=== PATIENT | male | born 1940 | race Caucasian/White ===

== ENCOUNTER 2022-10-14 09:38 | Outpatient (OUT) | payer MEDICARE, BC, SELFPAY ==
--- NOTE | 2022-10-14 10:02 | P.CN_ITS ---
Consult Note: HPI Data of Consult Patient: known to practice within the last 3 years Consult date: 10/14/22 Requesting Physician: DOMINIC WALLACE NP Primary Care Provider: Non-Staff Physician, MD Consult Narrative Narrative: Patient is here for f/u of chronic low back pain. Also has right ankle pain . Pain today is low lumbar bilat and intermittently radiates to left leg, unchanged pain or sx. He had LESI 03/29 and has continued relief of pain. We discussed ability to repeat the LESI when he feels it needs done.. Denies new sensorimotor or bowel or bladder issues. Denies medication adverse SE. Pain medication regimen assists patient in better ability to complete ADLs. He also has right ankle pain and has been seeing a talent management manager for this. He does have right ankle inversion. We discussed possible brace, but he states talent management manager did not think this would help. We also discussed getting high top shoes with ankle support to avoid falls. cc:: CC: DOMINIC WALLACE NP Review of Systems ROS Status of ROS 10 or more systems reviewed and unremarkable except as noted in history and below Musculoskeletal Reports: back pain Exam Constitutional Documenting provider has reviewed patient's vital signs: yes Common normals: no apparent distress, average body habitus, oriented x3, alert and well nourished General appearance: cooperative, comfortable and well developed Orientation/consciousness: Yes awake, Yes oriented to person, Yes oriented to place and Yes oriented to time Other: walks with cane HENMT Common normals: normocephalic and moist oral mucous membranes Respiratory Common normals: normal respiratory effort, no retractions and no use of a ccessory muscles Effort & inspection: able to speak in complete sentences and symmetric chest movement Back & Pelvis Lumbar spine/lower back: ROM limited, pain with ROM and paraspinal muscle tenderness Other: positive facet load pain bilat lumbar muscle strength 4/5 bilat LE with intact sensation Assessment and Plan Assessment and Plan (1) Lumbar spondylosis: (2) Lumbar radiculopathy: Plan wear shoes with ankle support f/u 3 months
== END 2022-10-14 09:39 | disposition home or self-care (01) ==
LOC: PM 09:39
PROVIDERS: Visit Provider Nurse Practitioner
DX: M47.26 Other spondylosis with radiculopathy, lumbar region (principal)
CPT/HCPCS: G0463

== ENCOUNTER 2023-01-06 09:39 | Outpatient (OUT) | payer MEDICARE, BC, SELFPAY ==
--- NOTE | 2023-01-06 09:59 | PM.CN ---
Consult Note: HPI Data of Consult Patient: known to practice within the last 3 years Requesting Physician: Silvia Kimble NP Primary Care Provider: Non-Staff Physician, Consult Narrative Reason for consult: f/u Narrative: Irineo Mendes a pleasant 82 year old male presents for evaluation and management of chronic low back pain. Pain today 4/10 in low back. Patient has noticed increase in lumbar pain, as well as radicular symptoms and weakness in bilateral legs over the last two months. Patient would like to discuss proceeding with repeat LINDA as these previously provided >50% pain relief and functional improvement for greater than 3 months. cc:: CC: Silvia Kimble NP Review of Systems ROS Status of ROS 10 or more systems reviewed and unremarkable except as noted in history and below Musculoskeletal Reports: back pain Exam Constitutional Documenting provider has reviewed patient's vital signs: yes Common normals: no apparent distress, oriented x3, healthy appearing, alert and well nourished General appearance: cooperative HENMT Common normals: normocephalic, hearing grossly normal bilaterally and moist oral mucous membranes Head and scalp: normocephalic Eye Common normals: PERRL Pupil: PERRL Neck & C-Spine Common normals: full ROM General: normal visual inspection Chest Common normals: inspection of chest normal Respiratory Common normals: normal respiratory effort, no retractions and no use of accessory muscles Back & Pelvis Lumbar spine/lower back: ROM limited Other: pain increased with standing and walking numbness tingling weakness bilateral legs/feet Extremity Common normals: normal to inspection and full ROM Other: BLE edema, fern hose Neuro Common normals: oriented x3, CN's II-XII intact bilaterally, moves all extremities, no focal motor deficits, no sensory deficits noted and deep tendon reflexes 2+ bilaterally Sensorium/orientation: alert Gait (neuro): antalgic and assistive device used cane Motor exam: no movement abnormalities noted and strength abnormal (4/5 BLE) Psych Common normals: mental status grossly normal, thought process normal, cooperative, affect normal, speech normal and activity/motor behavior normal Speech: normal speech Thought process: normal thought process Results Additional Findings Additional findings: I have checked an [place] report on this patient today and there are no aberrancies noted in the prescribing history.?? A drug screen was completed and reviewed within the last year, and if there has not been a drug screen completed we ordered one today to monitor higher risk, state monitored pain medication use. As part of providing excellent, safe, comprehensive care, the following was completed at our patient's visit: 1. A medication reconciliation and review to ensure accurate knowledge of current/active medications, including asking our patients to inform us about any [id number] medications or herbal remedies/nutritional supplements/alternative remedies. 2. A review to specifically ensure our patients have had annual screening for: elevated body mass index (BMI), tobacco use, screening for depression, and screening for unhealthy alcohol use. When screening is concerning, patients are provided with education and the specific recommendation to discuss the concerning health issue and treatment options with their primary care provider. Assessment and Plan Assessment and Plan (1) Lumbar stenosis with neurogenic claudication: (2) Lumbar radiculopathy: Plan bilateral TFESI at L3-4 under fluoroscopy continue current medications f/u 2 weeks after LINDA
== END 2023-01-06 09:40 | disposition home or self-care (01) ==
LOC: PM 09:39
PROVIDERS: Visit Provider Nurse Practitioner
DX: M48.062 Spinal stenosis, lumbar region with neurogenic claudication (principal); M54.16 Radiculopathy, lumbar region
CPT/HCPCS: G0463

== ENCOUNTER 2023-01-10 09:46 | Day surgery (SDC) | payer MEDICARE, BC, SELFPAY ==
[2023-01-10 10:43] VITALS: BP 160/80; PULSE 66; RESP 14; TEMP 36.4; O2SAT 98
[2023-01-10 11:14] VITALS: BP 166/94; PULSE 98; RESP 18; O2SAT 98
[2023-01-10 11:17] VITALS: BP 156/96; PULSE 94; RESP 18; O2SAT 95
[2023-01-10] MEDS: LIDOCAINE HCL 2% PF 100 MG/5 ML VIAL INJ (11:17)
[2023-01-10] MEDS: BUPIVACAINE HCL 0.25% PF 25 MG/10 ML VIAL INJ (11:17)
[2023-01-10] MEDS: IOHEXOL 240 MG/ML - 10 ML VIAL INJ (11:17)
[2023-01-10] MEDS: TRIAMCINOLONE ACETONIDE 40 MG/ML VIAL INJ (11:17)
--- NOTE | 2023-01-10 11:20 | P.ON_ITS ---
Date of procedure: 01/10/23 Pre-op diagnosis: Lumbar stenosis with neurogenic claudication Post-op diagnosis: same as pre-op Procedure: Procedure: Bilateral L3-4 transforaminal epidural steroid injection Medication: Bupivacaine 0.5% 2cc, kenalog 80mg The patient was seen and examined in the preoperative holding area.? Informed consent was obtained and placed on the chart.? Patient was brought to the medical procedure unit and placed in the prone position where a timeout was c ompleted verifying the correct patient, procedure site, position, and planned special equipment using sterile aseptic technique.? Under direct fluoroscopic visualization a 25-gauge Quincke tipped spinal needle was advanced at level left L3-4 to the designated neural foramen where contrast dye was injected to show adequate spread.? There was no evidence of vascular or adverse uptake.? Epidural spread was appreciated.? The above-mentioned injectate was then placed in a 1.5 mL aliquot preceded by negative aspiration.? The needle was removed. The same procedure, at the same level, was completed on the opposite side. ? Patient was taken to the postprocedural recovery area and monitored for an appropriate length of time before found suitable for discharge in the accompaniment of a responsible adult. Anesthesia: Local Surgeon: Diana Price Pathology: none sent Condition: stable Disposition: no change
== END 2023-01-10 11:24 | disposition home or self-care (01) ==
LOC: SURGOUT 09:47
PROVIDERS: Visit Provider Anesthesiology
DX: M48.062 Spinal stenosis, lumbar region with neurogenic claudication (principal)
CPT/HCPCS: 64483; Q9966

== ENCOUNTER 2023-02-16 10:54 | Outpatient (OUT) | payer MEDICARE, BC, SELFPAY ==
--- NOTE | 2023-02-16 11:23 | PM.CN ---
Consult Note: HPI Data of Consult Patient: known to practice within the last 3 years Requesting Physician: Silvia Kimble NP Primary Care Provider: Non-Staff Physician, MD Consult Narrative Reason for consult: f/u Narrative: Irineo Mendes a pleasant 82 year old male presents for evaluation and management of chronic low back pain. Pain today 4/10 in low back. Patient has noticed increase in BLE strength and no radicular symptoms from bilateral L3-4 TFESI. Pain continues to be 4/10 impacting functional ability. cc:: CC: Silvia Kimble NP Review of Systems ROS Status of ROS 10 or more systems reviewed and unremarkable except as noted in history and below Musculoskeletal Reports: back pain PFSH PFSH Medical History CHF (congestive heart failure) ?I50.9 - Heart failure, unspecified (ICD-10) Cataracts, bilateral ?H26.9 - Unspecified cataract (ICD-10) Low back pain ?M54.50 - Low back pain, unspecified (ICD-10) Hypothyroid ?E03.9 - Hypothyroidism, unspecified (ICD-10) Hypercholesterolemia ?E78.00 - Pure hypercholesterolemia, unspecified (ICD-10) Afib ?I48.91 - Unspecified atrial fibrillation (ICD-10) Surgical History History of total knee arthroplasty ?Z96.659 - Presence of unspecified artificial knee joint (ICD-10) History of hip replacement ?Z96.649 - Presence of unspecified artificial hip joint (ICD-10) Previous back surgery ?Z98.890 - Other specified postprocedural states (ICD-10) History of shoulder surgery ?Z98.890 - Other specified postprocedural states (ICD-10) Meds Home Medications and Allergies Home Medications Medication Instructions Recorded Confirmed Type acetaminophen 500 mg oral powder 1,000 mg PO BID PRN pain 01/06/23 01/10/23 History packet (Tylenol Extra Strength) allopurinol 300 mg tablet 300 mg PO DAILY 01/06/23 01/10/23 History apixaban 5 mg tablet (Eliquis) 5 mg PO BID 01/06/23 01/10/23 History atorvastatin 40 mg tablet 40 mg PO DAILY 01/06/23 01/10/23 History bumetanide 1 mg tablet 1 mg PO DAILY 01/06/23 01/10/23 History eszopiclone 3 mg tablet mg 01/06/23 History levothyroxine 150 mcg capsule 150 mcg PO DAILY 01/06/23 01/10/23 History magnesium oxide 400 mg PO DAILY 01/06/23 01/10/23 History oxycodone-acetaminophen 5 mg-325 1 tab PO BID 01/06/23 01/10/23 History mg tablet (Endocet) potassium chloride 20 mEq 20 meq PO DAILY 01/06/23 01/10/23 History tablet,extended release(part/cryst) pramipexole 0.25 mg tablet 0.25 mg PO DAILY 01/06/23 01/10/23 History (Mirapex) trazodone 50 mg tablet 50 mg PO DAILY 01/06/23 01/10/23 History Allergies Allergy/AdvReac Type Severity Reaction Status Date / Time fentanyl [From Duragesic] Allergy Unknown Verified 01/10/23 10:39 indomethacin [From Indocin] Allergy Unknown Verified 01/10/23 10:39 Penicillins Allergy Unknown Verified 01/10/23 10:39 zolpidem [From Ambien] Allergy Verified 01/10/23 10:39 Exam Constitutional Documenting provider has reviewed patient's vital signs: yes Common normals: no apparent distress, oriented x3, healthy appearing, alert and well nourished General appearance: cooperative [facility] Common normals: normocephalic, hearing grossly normal bilaterally and moist oral mucous membranes Head and scalp: normocephalic Eye Common normals: PERRL Pupil: PERRL Neck & C-Spine Common normals: full ROM General: normal visual inspection Chest Common normals: inspection of chest normal Respiratory Common normals: normal respiratory effort, no retractions and no use of accessory muscles Back & Pelvis Lumbar spine/lower back: ROM limited, pain with ROM and straight leg raise negative bilaterally Other: positive facet loading no radicular symptoms sensation intact in BLE 5/5 strength Extremity Common normals: normal to inspection and full ROM Neuro Common normals: oriented x3, CN's II-XII intact bilaterally, moves all extremities, no focal motor deficits, no sensory deficits noted and deep tendon reflexes 2+ bilaterally Sensorium/orientation: alert Motor exam: strength 5/5 throughout and no movement abnormalities noted Psych Common normals: mental status grossly normal, thought process normal, cooperative, affect normal, speech normal and activity/motor behavior normal Speech: normal speech Thought process: normal thought process Assessment and Plan Assessment and Plan (1) Lumbar spondylosis: (2) Lumbar stenosis with neurogenic claudication: Plan bilateral L3-4 L4-5 MBB x2 under fluoroscopy working towards thermal RFA, radicular symptoms resolved at this time continue HEP as tolerated continue current medications f/u after each injection
== END 2023-02-16 10:55 | disposition home or self-care (01) ==
LOC: PM 10:54
PROVIDERS: Visit Provider Nurse Practitioner
DX: M47.816 Spondylosis without myelopathy or radiculopathy, lumbar region (principal); M48.062 Spinal stenosis, lumbar region with neurogenic claudication
CPT/HCPCS: G0463

== ENCOUNTER 2023-03-14 09:12 | Day surgery (SDC) | payer MEDICARE, BC, SELFPAY ==
--- OUTSIDE RECORDS SUMMARY | 2023-03-14 09:18 | XMS_ITS | CCD ---
Author Name Unknown Address [address] [place] [address] Organization [facility] Care Team Providers Care Division Service Manager Name Role Phone Florentino Dontrell W Unavailable Unavailable Rice, Dontrell W Unavailable Unavailable Rice, Dontrell W Unavailable Unavailable NONE, XXXX Unavailable Unavailable Feliciano Ga Unavailable Unavailable Unavailable Feliciano Ga Unavailable DO Feliciano Ga Primary Care Provider TIFFANY Rodarte-Severiano Malone Attending Provider DO Feliciano Ga Attending Provider DO Feliciano Ga Primary Care Provider DO Feliciano Ga Attending Provider MD Victor Manuel Paiz Emergency Provider DO Dharmesh Zavala Admit Provider DO Dharmesh Zavala Attending Provider Shy Mcdonough Other Provider Unavailable DO Meme De La Torre Other Provider MD Mani Dickens Other Provider DO Matheus Rizvi Other Provider [phone] Antonia ANP- Hoa Other Provider DO Vikas Mane Other Provider RIKY Degroot Other Provider MD Raji Ennis Attending Provider [phone] MD Victor Manuel Reynolds Other Provider SanRIKY Coronel Attending Provider Kuns, DO Feliciano Myers Attending Provider Kuns, DO Feliciano Primary Care Provider Kuns, DO Feliciano Myers Attending Provider Kuns, Dr. Feliciano Parker Primary Care Unavaila cb Gomez, Dane San Attending Rula Gomez, Ms. Enedelia San Referring Unavai labfrederic Ga, Dr. Feliciano Parker Primary Care Unavaila cb Gomez, Dane Enedelia Raeganshelia San Attending Rula Gomez, Dane Enedeliadano San Referring Unavai lable Harmeet, Dr. Feliciano Parker Primary Care Unavaila ble Drew, Marv Referring Unavailable Kuncatie, Dr. Feliciano Parker Primary Care Unavaila ble Drew, Marv Attending Unavailable Harmeet, Dr. Feliciano Parker Primary Care Unavaila ble Francisco Javier, Irineo Attending Unavailable Francisco Javier, Irineo Referring Unavailable Harmeet, Dr. Feliciano Parker Primary Care Unavaila ble Francisco Javier, Irineo Attending Unavailable Francisco Javier, Irineo Referring Unavailable Kuncatie, Dr. Feliciano Parker Primary Care Unavaila ble Drew, Marv Attending Unavailable Drew, Marv Attending Unavailable Kuncatie, Dr. Feliciano Parker Primary Care Unavaila ble Drew, Marv Attending Unavailable Harmeet, Dr. Feliciano Parker Primary Care Unavaila ble KOSTA ., DR TROY Haddad Admitting Unavailable BRAMBILA ., DR TROY Haddad Consulting Unavailable BRAMBILA ., DR TROY Haddad Attending Unavailable KUNCatie, DR WIGGINS Primary Care Unavailable BRAMBILA ., DR TROY Haddad Admitting Unavailable BRAMBILA ., DR TROY Haddad Attending Unavailable RODARTE ., MONSERRAT Consulting Unavailable HARMEET, DR WHITTINGTON Primary Care Unavailable BRAMBILA ., DR TROY Haddad Admitting Unavailable BRAMBILA ., DR TROY Haddad Consulting Unavailable BRAMBILA ., DR TROY Haddad Attending Unavailable KUNCatie, DR WHITTINGTON Primary Care Unavailable RODARTE ., MONSERRAT Consulting Unavailable HARMEET, DR WHITTINGTON Consulting Unavailable BRAMBILA ., DR TROY Haddad Admitting Unavailable BRAMBILA ., DR TROY Haddad Consulting Unavailable BRAMBILA ., DR TROY Haddad Attending Unavailable KUNS, DR WHITTINGTON Primary Care Unavailable KUNCatie, DR WHITTINGTON Consulting Unavailable HALKER ., DOMINIC Attending Unavailable HALKER ., DOMINIC Admitting Unavailable KUNCatie, DR WHITTINGTON Primary Care Unavailable KUNS, DR WHITTINGTON Primary Care Unavailable BRAMBILA ., DR TROY Haddad Admitting Unavailable BRAMBILA ., DR TROY Haddad Attending Unavailable RODARTE ., MONSERRAT Consulting Unavailable KUNCatie, DR WHITTINGTON Primary Care Unavailable BRAMBILA ., DR TROY Haddad Attending Unavailable BRAMBILA ., DR TROY Haddad Admitting Unavailable BRAMBILA ., DR TROY Haddad Admitting Unavailable KUNS, DR WHITTINGTON Primary Care Unavailable BRAMBILA ., DR TROY Haddad Attending Unavailable RODARTE ., MONSERRAT Consulting Unavailable KUNS, DR WHITTINGTON Consulting Unavailable BRAMBILA ., DR TROY Haddad Admitting Unavailable BRAMBILA ., DR TROY Haddad Attending Unavailable RODARTE ., MONSERRAT Consulting Unavailable HARMEET, DR WHITTINGTON Primary Care Unavailable EDILMA MANDEL Attending Unavailable TEQUILA, EDILMA Admitting Unavailable RONALD ISRAEL Consulting Unavailable HARMEET, DR WIGGINS Primary Care Unavailable EDILMA MANDEL Consulting Unavailable BRAMBILA ., DR TROY Haddad Admitting Unavailable BRAMBILA ., DR TROY Haddad Consulting Unavailable BRAMBILA ., DR TROY Haddad Attending Unavailable KUNS, DR WHITTINGTON Primary Care Unavailable LAKSHMIPATHY ., NARENDRANATH Admitting Nichelle vailable LAKSHMIPATHY ., NARENDRANATH Consulting Nichelle vailable HARMEET, DR WHITTINGTON Primary Care Unavailable LAKSHMIPATHY ., NARMAMIATH Attending Nichelle vailable HALKER ., DOMINIC Consulting Unavailable BRAMBILA ., DR TROY Haddad Admitting Unavailable BRAMBILA ., DR TROY Haddad Attending Unavailable RODARTE ., MONSERRAT Consulting Unavailable HARMEET, DR WIGGINS Primary Care Unavailable Kuncatie, DO Wiggins Primary Care Provider Kuns, DO Wiggins Attending Provider Kuns, Feliciano Primary Care Unavailable Kuns, Feliciano P Admitting Unavailable KunsFeliciano P Attending Unavailable Kuns, Feliciano Primary Care Unavailable Enedelia Mix Admitting Unavailable Enedelia Mix Attending Unavailable KunFeliciano haddad Attending Unavailable Kuns, Feliciano Admitting Unavailable Kuns, Feliciano Primary Care Unavailable Kuns, Feliciano Primary Care Unavailable Raymon Raji Attending Unavailable Sciaradiane Shy Consulting Unavailable Karen Zavalaer Admitting Unavailabl e Meme De La Torre Consulting Unavailable Mani Dickens Consulting Unavailable Albert Rizvi Consulting UnavailHoa Whitlock Consulting Unavailable Vikas Mane Consulting Unavailable Jen Degroot Consulting Unavailable Victor Manuel Reynolds Consulting Unavailable Monserrat Rodarte Admitting Unavailable Monserrat Rodarte Attending Unavailable Feliciano Ga Primary Care Unavailable Feliciano Ga Primary Care Unavailable Feliciano Ga Attending Unavailable Feliciano Ga Admitting Unavailable Dee TIDWELL, Diana Hubbard Attending Unavailable Allergies Allergy Classification Reported Allergen(s) Allergy Type Date of Onset Reaction(s) Facility (20 sources) fentaNYL; Translations: [fentaNYL] Drug Allergy 11-09-19 20 AOF, loopy , Dizziness [facility] Repository (20 sources) indomethacin; Translations: [Indocin] Drug Allergy Other [facility] Repository (20 sources) penicillin; Translations: [penicillin] Drug Allergy anaphylaxis [facility] Repository (1 source) Duragesic-25; Translations: [Duragesic-25] Propensity to adverse reactions (disorder) [facility] Repository (1 source) FentaNYL Matrix; Translations: [FentaNYL Matrix] Propensity to adverse reactions (disorder) AOF [facility] Repository (20 sources) fentaNYL; Translations: [Duragesic-75 PT72] Drug Allergy Dizziness, Nausea [facility] [employer] DO Work Phone: (20 sources) Penicillins; Translations: [Penicillins] Allergy to drug (finding) 11-09-19 20 Other, Weakness [facility] (20 sources) zolpidem; Translations: [Ambien] Drug Allergy memory loss [facility] [employer] 250 DO Work Phone: (20 sources) Indomethacin Drug Allergy 11-09-19 20 Unknown, Dizziness [facility] (20 sources) Duragesic-75 Drug allergy nausea [employer] Other (8 sources) zolpidem; Translations: [zolpidem] Drug Allergy 12-25-19 20 Confusion [facility] (1 source) fentaNYL Drug Allergy [facility] Repository (2 sources) Penicillins Drug allergy (disorder) 07-26-19 15 [facility] Repository (1 source) zolpidem Drug Allergy [facility] Repository (1 source) Indomethacin Drug Allergy 01-10-20 [facility] Repository (1 source) Penicillins Drug allergy (disorder) 01-10-20 [facility] Repository Medications Current Medications Medication Drug Class(es) Dates Sig (Normalized) Sig (Original) acetaminophen 500 mg oral tablet (20 sources) Start: 01-04-2020 take 1000 mg by mouth twice daily Acetaminophen Active 1000 MG PO Twice daily January 04, 2020 12:00am Start: 10-17-2019 End: 11-06-2019 take 2 tablets by mouth twice daily Acetaminophen (Tylenol) 325 mg Tablet Discontinued 650 MG PO Twice daily October 17, 2019 12:00am November 06, 2019 9:42am take 1 capsule by mo ut every six hours Tylenol 325 MG 1 capsule as needed Orally every 6 hrs Active take 1-2 tablets by mouth every six hours as needed Acetaminophen 325 MG Oral Tablet TAKE 1 TO 2 TABLETS EVERY 6 HOURS NEEDED. Quantity: 0 Refills: 0 Ordered: 05-Jan-2021 DO Active allopurinol 300 mg oral tablet (20 sources) Xanthine Oxidase Inhibitor Start: 10-24-2017 End: 01-04-2020 take 1 tablet by mouth every twenty-four hours Allopurinol 300 MG 1 tablet Orally Once a day for 90 days Oct, Active atorvastatin 40 mg oral tablet (20 sources) HMG-CoA Reductase Inhibitor Start: 10-17-2019 End: 01-04-2020 take 40 mg by mouth once daily at bedtime Atorvastatin Active 40 MG PO Daily at bedtime January 04, 2020 12:00am azithromycin 250 mg oral tablet (3 sources) Macrolide Antimicrobial Start: 09-15-2022 Zithromax Z-Jed 250 MG as directed Orally Sep, Active bumetanide 1 mg oral tablet (20 sources) Loop Diuretic Start: 01-09-2022 End: 01-16-2022 take 0.5 mg by mouth once daily Bumetanide Discontinued 0.5 MG PO DAILY@0800 January 09, 2022 2:35pm January 16, 2022 1:30pm Start: 01-14-2016 End: 01-09-2022 take 1 mg by mouth once daily Bumetanide Active 1 MG P O DAILY@0800 0 January 16, 2022 1:00am Start: 01-14-2016 take 0.5 tablet by m out once daily as needed Bumex 1 MG 0.5 tablet Orally Once a day PRN Jan, Active Start: 01-14-2016 take 1 tablet by ck th every other day as needed Bumex 1 MG 1 tablet Orally every other day PRN Jan, Active Compression Pump (20 sources) Start: 02-11-2015 Compression Pu mp as directed to bilateral lower extremity Q other PM Feb, Active compression stockings 30-40 mmhg (20 sources) Start: 09-28-[address] ockings 30-40 mmhg as directed knee high as directed 2 pair 30-40mmhg size xs. 5 gvaris, [id number], mt [id number] Sep, Active Start: 09-28-[address] ockings 30-40 mmhg as directed knee high as directed 2 pair Sep, Active docusate sodium 100 mg oral capsule (20 sources) Start: 11-06-2019 End: 01-04-2020 take 1 capsule by mouth twice daily Docusate Sodium (Dok) 100 mg Capsule Active 100 MG PO Twice daily 60 January 04, 2020 12:00am take 1 capsule by mo [facility] every twenty-four hours Colace 100 MG 1 capsule as needed Orally Once a day Active eszopiclone 3 mg oral tablet (20 sources) Start: 12-08-2022 take 1 tablet by ck every twenty-four hours Eszopiclone 3 MG 1 tablet immediately before bedtime Orally Once a day Dec, Active Start: 11-16-2021 take 1 tablet by ck every twenty-four hours Eszopiclone 3 MG 1 tablet immediately before bedtime Orally Once a day May, Active Start: 11-25-2020 take 1 tablet by ck every twenty-four hours Eszopiclone 3 MG 1 tablet immediately before bedtime Orally Once a day May, Active Start: 10-17-2019 End: 01-04-2020 take 1 tablet by mouth once daily at bedtime Eszopiclone (Lunesta) 3 mg tablet Discontinued 3 MG PO Daily at bedtime October 17, 2019 12:00am January 04, 2020 12:33pm fluticasone propionate 0.05 mg/actuat metered dose nasal spray (12 sources) Corticosteroid Start: 01-09-2022 Fluticasone Pr opionate Active 1 SPRAY NARES-BOTH Daily at bedtime January 09, 2022 2:10pm Start: 01-04-2020 End: 01-09-2022 Fluticasone Propionate Disco ntinued 1 SPRAY NARES-BOTH Twice daily January 04, 2020 12:00am January 09, 2022 2:10pm levothyroxine sodium 0.15 mg oral tablet (20 sources) l-Thyroxine Start: 08-31-2021 Synthroid 150 MCG 1 tablet every morning on an empty stomach Orally Once a day Aug, Active Start: 08-31-2021 Synthroid 137 MCG 1 tablet every morning on an empty stomach Orally Once a day for 90 days Aug, Active Start: 10-17-2019 End: 01-04-2020 take 1 tablet by mouth once daily Levothyroxine (Synthroid) 150 mcg Tablet Active 150 MCG PO DAILY@0630 January 04, 2020 12:00am Start: 10-17-2017 Synthroid 150 MCG 1 tablet every morning on an empty stomach Orally Once a day Oct, Active Magnesium (20 sources) Magnesium 400 MG Orally Active take 1 tablet by mouth once pernell y Magnesium 400 MG Oral Tablet Take 1 tablet daily Quantity: 0 Refills: 0 Ordered: 05-Jan-2021 DO Active Multi For Him (20 sources) Multi For Him Ac tive mupirocin 0.02 mg/mg topical ointment (14 sources) RNA Synthetase Inhibitor Antibacterial Start: 01-07-2022 Mupirocin 2 % 1 application Externally Twice a day Jan, Active nystatin 100 unt/mg topical powder (12 sources) Polyene Antifungal Start: 02-09-2022 Nystatin [id number] UNIT/GM 1 application Externally Twice a day for 30 day(s) Feb, Active microencapsulated potassium chloride 20 meq extended release oral tablet (20 sources) Start: 01-04-2020 End: 01-09-2022 Potassium Chloride (Klor-Con M20) 20 mEq tablet,ER particles/crystals Active 20 MEQ PO Every evening January 09, 2022 2:35pm Start: 12-21-2019 End: 01-04-2020 take 20 mEq by mouth at bedtime Potassium Chloride Dis continued 20 MEQ PO Bedtime December 21, 2019 12:00am January 04, 2020 12:33pm Start: 11-02-2016 take 1 tablet by once daily K-Dur 20 mEq 1 tablet orally Once a day Oct, Active traZODone hydrochloride 50 mg oral tablet (20 sources) Serotonin Reuptake Inhibitor Start: 01-09-2022 take 50 mg by mouth at bedtime Trazodone Active 50 MG PO Bedtime January 09, 2022 12:00am Completed/Discontinued Medications Medication Drug Class(es) Dates Sig (Normalized) Sig (Original) acetaminophen 325 mg / HYDROcodone bitartrate 5 mg oral tablet (7 sources) Opioid Agonist Start: 11-06-2019 End: 11-06-2019 take 1 tablet by mouth every six hours Hydrocodone-Acetami nophen ([place]) 5-325 mg tablet Discontinued 1 TAB PO Q6H November 06, 2019 November 06, 2019 9:42am Start: 11-06-2019 End: 11-06-2019 take 1 tablet by mouth every six hours Hydrocodone-Acetaminophen ([place]) 5-325 mg tablet Discontinued 1 TAB PO Q6H November 06, 2019 November 06, 2019 8:42am Start: 11-06-2019 End: 11-06-2019 take 1 tablet by mouth every six hours Hydrocodone-Acetaminophen ([place]) 5-325 mg tablet Discontinued 1 TAB PO Q6H November 06, 2019 November 06, 2019 8:42am Start: 11-06-2019 End: 11-06-2019 take 1 tablet by mouth every six hours Hydrocodone-Acetaminophen ([place]) 5-325 mg tablet Discontinued 1 TAB PO Q6H November 06, 2019 November 06, 2019 8:42am Start: 11-06-2019 End: 11-06-2019 take 1 tablet by mouth every six hours Hydrocodone-Acetaminophen ([place]) 5-325 mg tablet Discontinued 1 TAB PO Q6H November 06, 2019 November 06, 2019 8:42am Start: 11-06-2019 End: 11-06-2019 take 1 tablet by mouth every six hours Hydrocodone-Acetaminophen ([place]) 5-325 mg tablet Discontinued 1 TAB PO Q6H November 06, 2019 November 06, 2019 9:42am Start: 11-06-2019 End: 11-06-2019 take 1 tablet by mouth every six hours Hydrocodone-Acetaminophen ([place]) 5-325 mg tablet Discontinued 1 TAB PO Q6H November 06, 2019 November 06, 2019 9:42am acetaminophen 325 mg / oxyCODONE hydrochloride 5 mg oral tablet (20 sources) Opioid Agonist Start: 02-18-2022 take 1 tablet by mouth twice daily as needed oxyCODONE-Acetaminophen 5-325 MG Oral Tablet TAKE 1 TABLET BY MOUTH TWICE A DAY NEEDED Quantity: 60 Refills: 0 Ordered: 18-Feb-2022 DO Start : 18-Feb-2022 Active Start: 01-16-2022 take 1 tablet by ck th every eight hours Oxycodone-Acetaminophen Active 1 TAB PO Q8H 11 07January 16, 2022 Start: 01-04-2020 End: 01-16-2022 take 1 tablet by mouth every four hours Oxycodone-Acetaminophen Discontinued 1 T AB PO Q4H 03 10January 04, 2020 January 16, 2022 1:30pm Start: 11-06-2019 End: 01-04-2020 take 1 tablet by mouth every four to six hours Oxycodone-Acetaminophen (Percocet) 5-325 mg tablet Discontinued 1 - 2 TAB PO EVERY 4-6 HOURS 03 10November 06, 2019 January 04, 2020 12:33pm take 1 tablet by ck th every six hours oxyCODONE-Acetaminophen 5-325 MG 1 table t as needed Orally every [address] Kosta HERRERA Active apixaban 5 mg oral tablet (20 sources) Factor Xa Inhibitor Start: 03-23-2021 take 1 tablet by mouth twice daily Eliquis 5 MG Oral Tablet TAKE 1 TABLET Twice daily Quantity: 180 Refills: 3 Ordered: 30-Mar-2022 Irineo Mcintyre DO Start : 23-Mar-2021 Active Start: 10-17-2019 End: 01-04-2020 take 1 tablet by mouth twice daily Eliquis 5 MG Oral Tablet TAKE 1 TABLET Twice daily Quantity: 180 Refills: 3 Ordered: 30-Mar-2022 Irineo Mcintyre DO Start : 23-Mar-2021 Active azelastine hydrochloride 0.137 mg/actuat metered dose nasal spray (7 sources) Histamine-1 Receptor Antagonist Start: 10-17-2019 End: 10-17-2019 Azelastine Discontinued INTRANASAL October 17, 2019 12:00am October 17, 2019 5:12pm azelastine / fluticasone (7 sources) Corticosteroid, Histamine-1 Receptor Antagonist Start: 10-17-2019 End: 12-24-2019 Azelastine-Fluticason e Discontinued 1 SPRAY INTRANASAL Twice daily October 16, 2019 11:00pm December 24, 2019 10:02am Start: 10-17-2019 End: 12-24-2019 Azelastine-Fluticasone Disco ntinued 1 SPRAY INTRANASAL Twice daily October 17, 2019 12:00am December 24, 2019 11:02am carvedilol 6.25 mg oral tablet (20 sources) alpha-Adrenergic Saroj, beta-Adrenergic Saroj Start: 10-17-2019 End: 01-16-2022 take 6.25 mg by mouth twice daily at mealtime Carvedilol Discontinued 6.25 MG PO Twice daily with meals January 04, 2020 12:00am January 16, 2022 1:30pm cephalexin 500 mg oral capsule (7 sources) Cephalosporin Antibacterial Start: 04-11-2017 End: 04-21-2017 take 1 capsule by mouth every twelve hours Cephalexin (Keflex) 500 mg capsule Discontinued 500 MG PO Q12H 20 April 11, 2017 1:00am April 21, 2017 1:02am diclofenac sodium 0.01 mg/mg topical gel (7 sources) Nonsteroidal Anti-inflammatory Drug Start: 01-04-2020 End: 01-09-2022 apply 2 g topically three times daily Diclofenac Sodium Discontinued 2 GM TOPICAL Three times daily January 04, 2020 12:00am January 09, 2022 2:10pm digoxin 0.125 mg oral tablet (20 sources) Cardiac Glycoside Start: 10-17-2019 End: 01-16-2022 take 125 ug by mouth once daily Digoxin Discontinued 125 MCG PO Daily January 04, 2020 12:00am January 16, 2022 1:30pm take 1 tablet by ck th every twenty-four hours Digoxin 125 MCG 1 tablet Orally Once a day Active folic acid 2.5 mg / vitamin b12 1 mg / vitamin b6 25 mg oral tablet (20 sources) Vitamin B12 Start: 01-04-2020 End: 01-09-2022 take 1 tablet by mouth once daily Folic Acid-Vit B6-Vit B12 (Folbee) 2.5-25-1 mg Tablet Discontinued 1 TAB PO Daily January 04, 2020 12:00am January 09, 2022 2:09pm hydrOXYzine pamoate 25 mg oral capsule (20 sources) Antihistamine Start: 11-06-2019 End: 01-09-2022 take 25 mg by mouth every three hours Hydroxyzine Pamoate Discontinued 25 MG PO Q3H 60 January 04, 2020 12:00am January 09, 2022 2:10pm Start: 11-06-2019 End: 01-09-2022 take 50 mg by mouth every three hours Hydroxyzine Pamoate Discontinued 50 MG PO Q3H 0 January 04, 2020 12:00am January 09, 2022 2:10pm Hymovis (20 sources) Start: 08-22-2019 Hymovis Aug 3 mL Start: 08-15-2019 Hymovis Aug 3 mL lactulose 667 mg/ml oral solution (10 sources) Osmotic Laxative Start: 01-04-2020 End: 01-09-2022 take 30 g by mouth once daily Lactulose Discontinued 30 GM PO Daily 300 January 04, 2020 12:00am January 09, 2022 2:11pm Lactulose Not-Steve patti magnesium oxide 400 mg oral tablet (20 sources) Start: 02-15-2022 take 1 tablet by mouth once daily Magnesium Oxide 400 (240 Mg) MG Oral Tablet TAKE 1 TABLET BY MOUTH EVERY DAY Quantity: 90 Refills: 3 Ordered: 16-Feb-2022 Irineo Mcintyre DO Start : 15-Feb-2022 Active Start: 01-16-2021 take 1 tablet by ck once daily Magnesium Oxide 400 MG Oral Tablet TAKE 1 TABLET BY MOUTH EVERY DAY Quantity: 90 Refills: 3 Ordered: 16-Jan-2021 Irineo Mcintyre DO Start : 16-Jan-2021 Active Start: 10-17-2019 End: 01-04-2020 take 1 tablet by mouth once daily Magnesium Oxide 400 MG Oral Tablet TAKE 1 TABLET BY MOUTH EVERY DAY Quantity: 90 Refills: 3 Ordered: 16-Jan-2021 Irineo Mcintyre DO Start : 16-Jan-2021 Active melatonin 5 mg oral tablet (7 sources) Start: 01-04-2020 End: 01-09-2022 take 5 mg by mouth once daily at bedtime Melatonin Discontinued 5 MG PO Daily at bedtime January 04, 2020 12:00am January 09, 2022 2:09pm 24 hr mirabegron 25 mg extended release oral tablet (20 sources) beta3-Adrenergi c Agonist Start: 01-04-2020 End: 01-09-2022 take 1 tablet by mouth once daily at lunch Mirabegron (Myrbetriq) 25 mg Tablet Extended Release 24 Hr Discontinued 50 MG PO Daily with lunch January 04, 2020 12:00am January 09, 2022 2:36pm Start: 10-17-2019 End: 01-04-2020 take 1 tablet by mouth once daily at lunch Mirabegron (Myrbetriq) 50 mg tablet extended release 24 hr Discontinued 50 MG PO Daily with lunch October 17, 2019 12:00January 04, 2020 12:34pm 24 hr oxybutynin chloride 5 mg extended release oral tablet (20 sources) Cholinergic Muscarinic Antagonist Start: 01-04-2020 End: 01-09-2022 take 10 mg by mouth once daily at lunch Oxybutynin Chloride Discontinued 10 MG PO Daily with lunch January 04, 2020 12:00am January 09, 2022 2:36pm Start: 10-17-2019 End: 01-04-2020 take 10 mg by mouth once daily at lunch Oxybutynin Chloride Discontinued 10 MG PO Daily with lunch October 17, 2019 12:00am January 04, 2020 12:34pm sacubitril 24 mg / valsartan 26 mg oral tablet (20 sources) Angiotensin 2 Receptor Saroj Start: 10-17-2019 End: 01-16-2022 take 1 tablet by mouth twice daily Sacubitril-Valsartan (Entresto) 24-26 mg Tablet Discontinued 1 TAB PO Twice daily January 04, 2020 12:00am January 16, 2022 1:30pm ENTRESTO 24 mg/2 6 mg 1 orally twice a day Active sulfamethoxazole 800 mg / trimethoprim 160 mg oral tablet (13 sources) Dihydrofolate Reductase Inhibitor Antibacterial, Sulfonamide Antimicrobial Start: 01-07-2022 End: 01-16-2022 take 1 tablet by mouth twice daily Sulfamethoxazole-Trimethoprim (Bactrim Ds) 800-160 mg Tablet Discontinued 1 TAB PO Twice daily January 09, 2022 12:00am January 16, 2022 1:30pm started 01/08/22 for 7 days Start: 12-21-2019 End: 12-25-2019 take 1 tablet by mouth every twelve hours Sulfamethoxazole-Trimethoprim (Bactrim D s) 800-160 mg Tablet Discontinued 1 TAB PO Q12H December 21, 2019 12:00am December 25, 2019 1:37pm Triamcinolone (20 sources) Corticosteroid Start: 07-17-2019 Kenalog -40 mg July, 40 mg Problems Active Problems Problem Classification Problem Date Documented Da te Episodic/Chronic Cardiac dysrhythmias (20 sources) Chronic atrial fibrillation; Translations: [Atrial fibrillation] Onset: 01-19-2021 Resolved: 10-12-2021 Chronic Congestive heart failure; nonhypertensive (20 sources) Heart failure; Translations: [Heart failure, unspecified] Onset: 08-31-2021 Resolved: 10-12-2021 Chronic Coronary atherosclerosis and other heart disease (20 sources) Coronary atherosclerosis; Translations: [Coronary atherosclerosis of unspecified type of vessel, [place] or graft] Chronic Disorders of lipid metabolism (20 sources) Hyperlipidemia; Translations: [Other and unspecified hyperlipidemia] Onset: 01-19-2021 Resolved: 08-31-2021 Chronic E Codes: Fall (11 sources) Unspecified fall, initial encounter; Translations: [Fall] Episodic Essential hypertension (20 sources) Benign essential hypertension; Translations: [Benign essential hypertension] Onset: 08-31-2021 Resolved: 08-31-2021 Chronic Fluid and electrolyte disorders (7 sources) Dehydration; Translations: [Dehydration] 11-09-2019 Episodic Genitourinary symptoms and ill-defined conditions (1 source) Urge incontinence; Translations: [URGE INCONTINENCE] Onset: 05-17-2022 Chronic Gout and other crystal arthropathies (20 sources) Gout; Translations: [Gout, unspecified] Onset: 09-04-2021 Resolved: 09-04-2021 Chronic Hyperplasia of prostate (20 sources) Benign prostatic hyperplasia; Translations: [Benign prostatic hyperplasia without lower urinary tract symptoms] Onset: 01-19-2021 Resolved: 01-19-2021 Chronic Mycoses (1 source) Candidiasis, unspecified Episodic Neoplasms of unspecified nature or uncertain behavior (8 sources) Ependymoma ; 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, unspecified] Onset: 01-09-2022 01-09-2022 Chronic Open wounds of extremities (1 source) Laceration without foreign body of left upper arm, initial encounter Episodic Open wounds of head; neck; and trunk (7 sources) Laceration - injury; Translations: [Laceration] 04-11-2017 Episodic Osteoarthritis (20 sources) Osteoarthritis of left knee joint; 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, left knee] Chronic Other acquired deformities (20 sources) Acquired spondylolisthesis; Translations: [Spondylolysis, lumbar region] Episodic Other aftercare (20 sources) Drug therapy finding; Translations: [Long-term (current) use of other medications] 11-09-2019 Episodic Other aftercare (20 sources) Long-term current use of anticoagulant; Translations: [Long-term (current) use of anticoagulants] Episodic Other and unspecified benign neoplasm (20 sources) Spinal meningioma; Translations: [Benign neoplasm of spinal meninges] Episodic Other circulatory disease (7 sources) H/O: atrial fibrillation; Translations: [Personal history of other diseases of circulatory system] Episodic Other circulatory disease (3 sources) History of sick sinus syndrome; Translations: [Personal history of other diseases of circulatory system] Episodic Other connective tissue disease (20 sources) History of repair of hip joint; Translations: [Presence of left artificial hip joint] Chronic Other connective tissue disease (20 sources) Artificial knee joint present; Translations: [Presence of unspecified artificial knee joint] Chronic Other connective tissue disease (20 sources) History of total knee arthroplasty; Translations: [Presence of left artificial knee joint] 12-26-2019 Chronic Other connective tissue disease (20 sources) Synovial cyst of popliteal space; Translations: [Synovial cyst of popliteal space [[place]], left knee] Episodic Other connective tissue disease (20 sources) Neuropathic pain; Translations: [Neuralgia and neuritis, unspecified] Episodic Other connective tissue disease (4 sources) Recurrent falls ; Translations: [Repeated falls] 01-09-2022 Episodic Other connective tissue disease (1 source) Muscle weakness (generalized) Episodic Other diseases of bladder and urethra (20 sources) Bladder irritability; Translations: [Other specified disorders of bladder] Chronic Other diseases of bladder and urethra (20 sources) Bladder muscle dysfunction - overactive; Translations: [Overactive bladder] Chronic Other diseases of veins and lymphatics (20 sources) Vascular insufficiency; Translations: [Venous insufficiency (chronic) (peripheral)] Episodic Other ear and sense organ disorders (12 sources) Tinnitus; Translations: [Tinnitus, unspecified ear] Episodic Other gastrointestinal disorders (20 sources) Constipation; Translations: [Constipation, 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-2022 Episodic Other hematologic conditions (5 sources) Raised cardiac enzyme or marker; Translations: [Other specified abnormalities of plasma proteins] 01-09-2022 Episodic Other hematologic conditions (4 sources) Other specified abnormalities of plasma proteins; Translations: [Other abnormal blood chemistry] 01-09-2022 Episodic Other lower respiratory disease (5 sources) Hypoxemia; Translations: [Hypoxemia] 01-09-2022 Episodic Other lower respiratory disease (4 sources) Hypoxemia; Translations: [Hypoxemia] 01-09-2022 Episodic Other nervous system disorders (20 sources) Chronic pain; Translations: [Other chronic pain] Chronic Other nervous system disorders (1 source) Other chronic pain Onset: 01-19-2021 Resolved: 01-19-2021 Chronic Other nervous system disorders (4 sources) Difficulty walking; Translations: [Difficulty in walking, 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] 01-09-2022 Chronic Other nervous system disorders (4 sources) Difficulty in walking, 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; Translations: [Difficulty in walking] Onset: 01-09-2022 01-16-2022 Chronic Other non-traumatic joint disorders (20 sources) Multiple joint pain; Translations: [Pain in unspecified joint] Episodic Other non-traumatic joint disorders (7 sources) Ankle pain; Translations: [Pain in left ankle and joints of left foot] 12-31-2019 Episodic Other nutritional; endocrine; and metabolic disorders (1 source) Body mass index 30+ - obesity; Translations: [Body Mass Index 33.0-33.9, adult] Chronic Other nutritional; endocrine; and metabolic disorders (20 sources) Obesity; Translations: [Obesity, unspecified] Chronic Other nutritional; endocrine; and metabolic disorders (2 sources) Abnormal weight loss; Translations: [Abnormal weight loss] Onset: 09-08-2022 Episodic Other nutritional; endocrine; and metabolic disorders (3 sources) Overweight in adulthood with body mass index of 25 or more but less than 30; Translations: [Overweight] Episodic Other screening for suspected conditions (not mental disorders or infectious disease) (20 sources) Echocardiogram abnormal; Translations: [Nonspecific (abnormal) findings on radiological and other examination of other intrathoracic organs] Onset: 01-19-2021 Resolved: 01-19-2021 Episodic Other skin disorders (20 sources) Abnormality of nail of toe; Translations: [Other nail disorders] Episodic Other skin disorders (1 source) Actinic keratosis Episodic Other upper respiratory infections (20 sources) Sinusitis; Translations: [Chronic sinusitis, unspecified] Chronic Pratima-; endo-; and myocarditis; cardiomyopathy (except that caused by tuberculosis or sexually transmitted disease) (20 sources) Cardiomyopathy; Translations: [Other primary cardiomyopathies] Chronic Residual codes; unclassified (4 sources) Sleep apnea; Translations: [Sleep apnea, 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-2022 Chronic Residual codes; unclassified (4 sources) Sleep apnea, unspecified; Translations: [Unspecified sleep apnea] Onset: 01-09-2022 01-16-2022 Chronic Residual codes; unclassified (7 sources) Swelling - edema - symptom; Translations: [Edema] Episodic Residual codes; unclassified (20 sources) Edema; Translations: [Edema] 12-26-2019 Episodic Residual codes; unclassified (20 sources) Insomnia; Translations: [Insomnia, unspecified] Episodic Residual codes; unclassified (8 sources) Insomnia, unspecified Onset: 03-05-2021 Resolved: 09-04-2021 Episodic Residual codes; unclassified (7 sources) Activity of daily living (ADL) alteration; Translations: [Other specified health status] 12-21-2019 Episodic Residual codes; unclassified (7 sources) Edema, generalized; Translations: [Generalized edema] 12-21-2019 Episodic Residual codes; unclassified (7 sources) Patient encounter status; Translations: [Encounter for prophylactic measures, unspecified] 12-26-2019 Episodic Residual codes; unclassified (7 sources) Altered mental status; Translations: [Altered mental status, unspecified] 11-09-2019 Episodic Residual codes; unclassified (1 source) Localized edema Episodic Screening and history of mental health and substance abuse codes (20 sources) Ex-smoker; Translations: [Personal history of tobacco use] Episodic Comment on above: Quit smoking in 1979 ; Skin and subcutaneous tissue infections (20 sources) Cellulitis, unspecified; Translations: [Cellulitis] Episodic Spondylosis; intervertebral disc disorders; other back problems (20 sources) Degeneration of lumbar intervertebral disc; Translations: [Other intervertebral disc degeneration, lumbar region] Onset: 11-12-2021 Chronic Spondylosis; intervertebral disc disorders; other back problems (20 sources) Chronic low back pain; Translations: [Acute exacerbation of chronic low back pain] Onset: 08-17-2021 01-09-2022 Episodic Superficial injury; contusion (1 source) Abrasion, left knee, initial encounter Episodic Thyroid disorders (20 sources) Hypothyroidism; Translations: [Hypothyroidism, unspecified] Onset: 01-19-2021 Resolved: 08-31-2021 Chronic Unclassified (3 sources) LOW BACK PAIN, UNSPECIFIED; Translations: [LOW BACK PAIN, UNSPECIFIED] Onset: 08-17-2021 Unclassified (1 source) Chronic atrial fibrillation, unspecified; Translations: [Chronic atrial fibrillation, unspecified] Onset: 03-11-2022 Unclassified (1 source) Low back pain, unspecified; Translations: [Low back pain, unspecified] Onset: 01-09-2022 Unclassified (1 source) Other specified dorsopathies, jzwgorbj-uvncgbj-zgac l region; Translations: [Other specified dorsopathies, toeknxeb-wjtdtmg-zepo l region] Onset: 09-28-2021 Urinary tract infections (4 sources) Urinary tract infection, site not specified; Translations: [UTI SITE NOT SPECIFIED] Onset: 05-13-2022 Episodic Varicose veins of lower extremity (20 sources) Varicose veins of lower extremity; Translations: [Varicose veins of left lower extremity with other complications] Episodic Past or Other Problems Problem Classification Problem Date Documented Da te Episodic/Chronic Cardiac dysrhythmias (8 sources) Bradycardia; Translations: [Bradycardia, unspecified] Onset: 01-09-2022 01-10-2022 Episodic Fever of unknown origin (8 sources) Fever; Translations: [Fever, unspecified] Onset: 01-09-2022 01-13-2022 Episodic Genitourinary symptoms and ill-defined conditions (8 sources) Retention of urine; Translations: [Retention of urine, unspecified] Onset: 01-09-2022 01-09-2022 Episodic Malaise and fatigue (20 sources) Asthenia; Translations: [Weakness] Onset: 09-14-2021 12-21-2019 Episodic Other connective tissue disease (4 sources) Repeated falls; Translations: [History of fall] Onset: 01-09-2022 01-16-2022 Episodic Other connective tissue disease (5 sources) Muscle wasting and atrophy, 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, unspecified site; Translations: [MUSCLE WASTING ATROPHY NEC UNS SITE] Onset: 08-17-2021 Episodic Other gastrointestinal disorders (4 sources) Constipation, unspecified; Translations: [Constipation, unspecified] Onset: 01-09-2022 01-16-2022 Episodic Pleurisy; pneumothorax; pulmonary collapse (8 sources) Pleural effusion; Translations: [Pleural effusion, 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] Onset: 01-09-2022 01-09-2022 Episodic Residual codes; unclassified (4 sources) Altered mental status, unspecified; Translations: [Altered mental status] Onset: 01-09-2022 01-16-2022 Episodic Residual codes; unclassified (4 sources) Generalized edema; Translations: [Edema] Onset: 01-09-2022 01-16-2022 Episodic Residual codes; unclassified (4 sources) Other specified health status; Translations: [Other specified conditions influencing health status] Onset: 01-09-2022 01-16-2022 Episodic Respiratory failure; insufficiency; arrest (adult) (8 sources) Acute respiratory failure; Translations: [Acute respiratory failure with hypoxia] Onset: 01-09-2022 01-09-2022 Episodic Unclassified (1 source) LOW BACK PAIN, UNSPECIFIED; Translations: [LOW BACK PAIN, UNSPECIFIED] Onset: 07-08-2022 Unclassified (1 source) Cough, unspecified type R05.9 Results Test Name Value Interpretation Reference Range Facility Alanine aminotransferase [En zymatic activity/volume] in Serum or PlasmaOrdered By: Feliciano Ga on 09-08-2022 ALT [Catalytic activity/Vol] 31 U/L 7-52 [facility] Albumin [Mass/volume] in Ser um or Plasma by Bromocresol green (BCG) dye binding methoOrdered By: Feliciano Ga on 09-08-2022 Albumin BCG dye [Mass/Vol] 4.1 g/dL 3.5-5.7 [facility] Alkaline phosphatase [Enzyma tic activity/volume] in Serum or PlasmaOrdered By: Feliciano Ga on 09-08-2022 ALP [Catalytic activity/Vol] 124 U/L 34-104 [facility] Aspartate aminotransferase [ Enzymatic activity/volume] in Serum or PlasmaOrdered By: Feliciano Ga on 09-08-2022 AST [Catalytic activity/Vol] 47 U/L 13-39 [facility] B-Type Natriuretic Peptideon 09-08-2022 Natriuretic peptide B (Bld) [Mass/Vol] 123.0 pg/mL High 5-100 [facility] Comment on above: Result Comment: PERF ORMED BY: [facility] [address] [place] [address] PATHOLOGIST [employer] PLASTERER JAYY SANTA M.D. Performed By: #### C OVID-19 MARS, SOFIANEG #### [facility] [address] Basophils Auto (Bld) [#/Vol] Ordered By: Feliciano Ga on 09-08-2022 Basophils (Bld) [#/Vol] 0.0 10*3/uL 0.0-0.2 [facility] Basophils/100 WBC Auto (Bld) Ordered By: Feliciano Ga on 09-08-2022 Basophils/100 WBC (Bld) 1.0 % . [facility] Bilirubin.total [Mass/volume ] in Serum or PlasmaOrdered By: Feliciano Ga on 09-08-2022 Bilirubin [Mass/Vol] 0.7 mg/dL 0.3-1.0 [facility] Calcium [Mass/volume] in Ser um or PlasmaOrdered By: Feliciano Ga on 09-08-2022 Calcium [Mass/Vol] 9.5 mg/dL 8.6-10.[address] [facility] Carbon dioxide, total [Moles /volume] in Serum or PlasmaOrdered By: Feliciano Ga on 09-08-2022 CO2 [Moles/Vol] 30.7 mmol/L 21.0-31.0 [facility] Chloride [Moles/volume] in S sandor or PlasmaOrdered By: Feliciano Ga on 09-08-2022 Chloride [Moles/Vol] 107 mmol/L 98-107 [facility] Cholesterol [Mass/volume] in Serum or PlasmaOrdered By: Feliciano Ga on 09-08-2022 Cholesterol [Mass/Vol] 124 mg/dL 140-[address] [facility] Comment on above: Chol less than 200 m g/dl low riskChol 201-239 mg/dl borderline riskChol 240 mg/dl and greater high risk Cholesterol in LDL Calc [Mas s/Vol]Ordered By: Feliciano Ga on 09-08-2022 Cholesterol in LDL [Mass/Vol] 44 mg/dL 0-100 [facility] Comment on above: LDL ATP III CLASSIFI CATIONLDL less than 100 mg/dL OptimalLDL 100-129 mg/dL Near or above optimalLDL 130-159 mg/dL Borderline highLDL 160-189 mg/dL HighLDL greater than 189 mg/dL Very high Cholesterol in VLDL Calc [Ma ss/Vol]Ordered By: Feliciano Ga on 09-08-2022 Cholesterol in VLDL [Mass/Vol] 13 mg/dL [facility] Complete Blood Count Auto Di ffon 09-08-2022 Basophils (Bld) [#/Vol] 0.0 10*3/uL Normal 0.0-0.2 [facility] Comment on above: Order Comment: Reaso n for Exam Hyperlipidemia Result Comment: PERF ORMED BY: [place] [address] PATHOLOGIST [employer] P[employer]ER JAYY SANTA M.D. Performed By: #### C OVID-19 MARS, SOFIANEG #### [facility] [address] [place] [id number] [place] Basophils/100 WBC (Bld) 1.0 % Normal . [facility] Comment on above: Order Comment: Reaso n for Exam Hyperlipidemia Performed By: #### C OVID-19 MARS, SOFIANEG #### [facility] [address] [place] [address] [place] Eosinophils (Bld) [#/Vol] 0.8 10*3/uL High 0.0-0.45 [facility] Comment on above: Order Comment: Reaso n for Exam Hyperlipidemia Performed By: #### C OVID-19 MARS, SOFIANEG #### [facility] [address] [place] [address] [place] Eosinophils/100 WBC (Bld) 16.6 % Normal . [facility] Comment on above: Order Comment: Reaso n for Exam Hyperlipidemia Performed By: #### C OVID-19 MARS, SOFIANEG #### [facility] [address] Erythrocyte distribution width (RBC) [Ratio] 14.9 % High 12.0-14.8 [facility] Comment on above: Order Comment: Reaso n for Exam Hyperlipidemia Performed By: #### C OVID-19 MARS, SOFIANEG #### [facility] [address] [place] [address] Hematocrit (Bld) [Volume fraction] 37.1 % Low 38.8-50.0 [facility] Comment on above: Order Comment: Reaso n for Exam Hyperlipidemia Performed By: #### C OVID-19 MARS, SOFIANEG #### [address] Hemoglobin (Bld) [Mass/Vol] 12.5 g/dL Low 13.0-17.0 [facility] Comment on above: Order Comment: Reaso n for Exam Hyperlipidemia Performed By: #### C OVID-19 MARS, SOFIANEG #### [facility] [address] [place] [address] Lymphocytes (Bld) [#/Vol] 1.3 10*3/uL Normal 1.00-4.8 [facility] Comment on above: Order Comment: Reaso n for Exam Hyperlipidemia Performed By: #### C OVID-19 MARS, SOFIANEG #### [facility] [address] [place] [address] [place] Lymphocytes/100 WBC (Bld) 27.0 % Normal . [facility] Comment on above: Order Comment: Reaso n for Exam Hyperlipidemia Performed By: #### C OVID-19 MARS, SOFIANEG #### [facility] [address] [place] [address] MCH (RBC) [Entitic mass] 33.5 pg Normal 27.5-35.2 [facility] Comment on above: Order Comment: Reaso n for Exam Hyperlipidemia Performed By: #### C OVID-19 MARS, SOFIANEG #### [facility] [address] MCV (RBC) [Entitic vol] 99.7 fL Normal 83.5-101 [facility] Comment on above: Order Comment: Reaso n for Exam Hyperlipidemia Performed By: #### C OVID-19 MARS, SOFIANEG #### [facility] [address] Mean Corpuscular HGB Conc 33.6 g/dL Normal 32.5-35.6 [facility] Comment on above: Order Comment: Reaso n for Exam Hyperlipidemia Performed By: #### C OVID-19 MARS, SOFIANEG #### [facility] [address] [place] [address] [place] Monocytes (Bld) [#/Vol] 0.3 10*3/uL Normal 0.0-0.8 [facility] Comment on above: Order Comment: Reaso n for Exam Hyperlipidemia Performed By: #### C OVID-19 MARS, SOFIANEG #### [facility] [address] [place] [address] [place] Monocytes/100 WBC (Bld) 7.2 % Normal . [facility] Comment on above: Order Comment: Reaso n for Exam Hyperlipidemia Performed By: #### C OVID-19 MARS, SOFIANEG #### [facility] [address] [place] [address] Neutrophils (Bld) [#/Vol] 2.2 10*3/uL Normal 1.8-7.7 [facility] Comment on above: Order Comment: Reaso n for Exam Hyperlipidemia Performed By: #### C OVID-19 MARS, SOFIANEG #### [facility] [address] [place] [id number] [place] Neutrophils/100 WBC (Bld) 48.2 % Normal . [facility] Comment on above: Order Comment: Reaso n for Exam Hyperlipidemia Performed By: #### C OVID-19 MARS, SOFIANEG #### [facility] [address] [place] [address] [place] NRBC% 0.2 /100{WBC} Normal 0-0.5 [facility] Comment on above: Order Comment: Reaso n for Exam Hyperlipidemia Performed By: #### C OVID-19 MARS, SOFIANEG #### [facility] [address] Platelet mean volume (Bld) [Entitic vol] 8.8 fL Normal 6.6-10.1 [facility] Comment on above: Order Comment: Reaso n for Exam Hyperlipidemia Performed By: #### C OVID-19 MARS, SOFIANEG #### [facility] [address] Platelets (Bld) [#/Vol] 155 10*3/uL Normal 150-450 [facility] Comment on above: Order Comment: Reaso n for Exam Hyperlipidemia Performed By: #### C OVID-19 MARS, SOFIANEG #### [facility] [address] RBC (Bld) [#/Vol] 3.73 10*6/uL Low 3.90-5.60 [facility] Comment on above: Order Comment: Reaso n for Exam Hyperlipidemia Performed By: #### C OVID-19 MARS, SOFIANEG #### [facility] [address] WBC (Bld) [#/Vol] 4.7 10*3/uL Normal 4.1-10.[address] [facility] Comment on above: Order Comment: Reaso n for Exam Hyperlipidemia Performed By: #### C OVID-19 MARS, SOFIANEG #### [facility] [address] Comprehensive Metabolic Pane haley 09-08-2022 Albumin [Mass/Vol] 4.1 g/dL Normal 3.5-5.[address] [facility] Comment on above: Order Comment: Reaso n for Exam Hyperlipidemia Performed By: #### C OVID-19 MARS, SOFIANEG #### [facility] [address] Albumin/Globulin [Mass ratio] 1.9 {ratio} Normal [facility] Comment on above: Order Comment: Reaso n for Exam Hyperlipidemia Performed By: #### C OVID-19 MARS, SOFIANEG #### [facility] [address] [place] [address] [place] ALP [Catalytic activity/Vol] 124 U/L High 34-104 [facility] Comment on above: Order Comment: Reaso n for Exam Hyperlipidemia Performed By: #### C OVID-19 MARS, SOFIANEG #### [facility] [address] [place] [address] [place] ALT [Catalytic activity/Vol] 31 U/L Normal 7-52 [facility] Comment on above: Order Comment: Reaso n for Exam Hyperlipidemia Performed By: #### C OVID-19 MARS, SOFIANEG #### [facility] [address] [place] [id number] [facility] Anion gap [Moles/Vol] 8.3 mmol/L Normal 6.0-15.0 [facility] Comment on above: Order Comment: Reaso n for Exam Hyperlipidemia Performed By: #### C OVID-19 MARS, SOFIANEG #### [facility] [address] [place] [id number] [facility] AST [Catalytic activity/Vol] 47 U/L High 13-39 [facility] Comment on above: Order Comment: Reaso n for Exam Hyperlipidemia Performed By: #### C OVID-19 MARS, SOFIANEG #### [facility] [address] [place] [id number] [facility] Bilirubin [Mass/Vol] 0.7 mg/dL Normal 0.3-1.0 [facility] Comment on above: Order Comment: Reaso n for Exam Hyperlipidemia Performed By: #### C OVID-19 MARS, SOFIANEG #### [facility] [address] [place] [id number] [place] Calcium [Mass/Vol] 9.5 mg/dL Normal 8.6-10.[address] [facility] Comment on above: Order Comment: Reaso n for Exam Hyperlipidemia Performed By: #### C OVID-19 MARS, SOFIANEG #### [facility] [address] [place] [address] [place] Chloride [Moles/Vol] 107 mmol/L Normal 98-107 [facility] Comment on above: Order Comment: Reaso n for Exam Hyperlipidemia Performed By: #### C OVID-19 MARS, SOFIANEG #### [facility] [address] CO2 [Moles/Vol] 30.7 mmol/L Normal 21.0-31.0 [facility] Comment on above: Order Comment: Reaso n for Exam Hyperlipidemia Performed By: #### C OVID-19 MARS, SOFIANEG #### [facility] [address] Creatinine [Mass/Vol] 1.18 mg/dL Normal 0.70-1.30 [facility] Comment on above: Order Comment: Reaso n for Exam Hyperlipidemia Performed By: #### C OVID-19 MARS, SOFIANEG #### [address] GFR/1.73 sq M.predicted MDRD (S/P/Bld) [Vol rate/Area] mL/min/{1.73_m2} [facility] Comment on above: Order Comment: Reaso n for Exam Hyperlipidemia Performed By: #### C OVID-19 MARS, SOFIANEG #### [facility] [address] Globulin (S) [Mass/Vol] 2.2 g/dL [facility] Comment on above: Order Comment: Reaso n for Exam Hyperlipidemia Performed By: #### C OVID-19 MARS, SOFIANEG #### [facility] [address] Glucose [Mass/Vol] 83 mg/dL Normal 70-[address] [facility] Comment on above: Order Comment: Reaso n for Exam Hyperlipidemia Result Comment: [place] om Glucose Reference Range is dependent on time and content of last meal. Glucose of more than 200 mg/dL in a nonstressed, ambulatory subject supports the diagnosis of Diabetes Mellitus. ADA recommended reference range Performed By: #### C OVID-19 MARS, SOFIANEG #### [facility] [address] Potassium [Moles/Vol] 4.0 mmol/L Normal 3.5-5.1 [facility] Comment on above: Order Comment: Reaso n for Exam Hyperlipidemia Performed By: #### C OVID-19 MARS, SOFIANEG #### [facility] [address] [place] [address] [place] Protein [Mass/Vol] 6.3 g/dL Low 6.4-8.[address] [facility] Comment on above: Order Comment: Reaso n for Exam Hyperlipidemia Performed By: #### C OVID-19 MARS, SOFIANEG #### [facility] [address] [place] [address] [place] Sodium [Moles/Vol] 142 mmol/L Normal 136-[address] [facility] Comment on above: Order Comment: Reaso n for Exam Hyperlipidemia Performed By: #### C OVID-19 MARS, SOFIANEG #### [facility] [address] [place] [address] [place] Urea nitrogen [Mass/Vol] 22 mg/dL Normal 7-25 [facility] Comment on above: Order Comment: Reaso n for Exam Hyperlipidemia Performed By: #### C OVID-19 MARS, SOFIANEG #### [facility] [address] Creatinine [Mass/volume] in Serum or PlasmaOrdered By: Feliciano Ga on 09-08-2022 Creatinine [Mass/Vol] 1.18 mg/dL 0.70-1.30 [facility] [facility] Eosinophils Auto (Bld) [#/Vo l]Ordered By: Feliciano Ga on 09-08-2022 Eosinophils (Bld) [#/Vol] 0.8 10*3/uL 0.0-0.45 [facility] Eosinophils/100 WBC Auto (Bl d)Ordered By: Fleiciano Ga on 09-08-2022 Eosinophils/100 WBC (Bld) 16.6 % . [facility] Erythrocyte distribution wid th Auto (RBC) [Ratio]Ordered By: Feliciano Ga on 09-08-2022 Erythrocyte distribution width (RBC) [Ratio] 14.9 % 12.0-14.8 [facility] Free T4 (Free Thyroxine)on 0 09-08-2022 Free T4 [Mass/Vol] 1.28 ng/dL High 0.61-1.[address] [facility] Comment on above: Order Comment: Reaso n for Exam Weight loss Reason for Exam Hyperlipidemia Performed By: #### C OVID-19 JOSE CREWS #### [facility] [address] Globulin Calc (S) [Mass/Vol] Ordered By: Feliciano Ga on 09-08-2022 Globulin (S) [Mass/Vol] 2.2 g/dL [facility] Glucose [Mass/volume] in Ser um or PlasmaOrdered By: Feliciano Ga on 09-08-2022 Glucose [Mass/Vol] 83 mg/dL 70-[address] [facility] Comment on above: ADA recommended refe rence rangeRandom Glucose Reference Range is dependent on time and content of last meal. Glucose of more than 200 mg/dL in a nonstressed, ambulatory subject supports the diagnosis of Diabetes Mellitus. Hematocrit Auto (Bld) [Volum e fraction]Ordered By: Feliciano Ga on 09-08-2022 Hematocrit (Bld) [Volume fraction] 37.1 % 38.8-50.0 [facility] Hemoglobin [Mass/volume] in BloodOrdered By: Feliciano Ga on 09-08-2022 Hemoglobin (Bld) [Mass/Vol] 12.5 g/dL 13.0-17.0 [facility] Leukocytes [#/volume] correc fern for nucleated erythrocytes in Blood by Automated counOrdered By: Feliciano Ga on 09-08-2022 WBC corrected for nucl RBC Auto (Bld) [#/Vol] 4.7 10*3/uL 4.1-10.5 [facility] Lipid Panelon 09-08-2022 Cholesterol [Mass/Vol] 124 mg/dL Low 140-[address] [facility] Comment on above: Order Comment: Reaso n for Exam Hyperlipidemia Result Comment: Chol less than 200 mg/dl low risk Chol 201-239 mg/dl borderline risk Chol 240 mg/dl and greater high risk Performed By: #### C OVID-19 JOSE CREWS #### [facility] [address] Cholesterol in HDL [Mass/Vol] 67 mg/dL Normal 23-92 [facility] Comment on above: Order Comment: Reaso n for Exam Hyperlipidemia Result Comment: HDL CHOL ATP-III CLASSIFICATION Cardiovascular Risk HDL > or equal to 60 mg/dL LOW HDL < 40 mg/dL HIGH Performed By: #### C OVID-19 MARS, SOFIANEG #### [facility] [address] [place] [address] [place] Cholesterol.total/Chol esterol in HDL [Mass ratio] 1.9 {ratio} Normal <5.0 [facility] Comment on above: Order Comment: Reaso n for Exam Hyperlipidemia Result Comment: PERF ORMED BY: [place] [address] PATHOLOGIST DRY WALL PLASTERER JAYY SANTA M.D. Performed By: #### C OVID-19 MARS, SOFIANEG #### [facility] [address] LDL Cholesterol,Calculated 44 mg/dL Normal 0-100 [facility] Comment on above: Order Comment: Reaso n for Exam Hyperlipidemia Result Comment: LDL ATP III CLASSIFICATION LDL less than 100 mg/dL Optimal LDL 100-129 mg/dL Near or above optimal LDL 130-159 mg/dL Borderline high LDL 160-189 mg/dL High LDL greater than 189 mg/dL Very high Performed By: #### C OVID-19 MARS, SOFIANEG #### [facility] [address] [place] [id number] [facility] Triglyceride w/Reflex 66 mg/dL Normal 0-149 [facility] Comment on above: Order Comment: Reaso n for Exam Hyperlipidemia Result Comment: TRIG ATP III CLASSIFICATION TRIG less than 150 mg/dL Normal TRIG 150-199 mg/dL Borderline high TRIG 200-500 mg/dL High TRIG greater than 500 mg/dL Very high Standard traceable to the Center for Disease Conrtrol and Prevention (CDC) test method. Performed By: #### C OVID-19 MARS, SOFIANEG #### [facility] [address] [place] [id number] [facility] VLDL CHOLESTEROL 13 mg/dL Normal [facility] Comment on above: Order Comment: Reaso n for Exam Hyperlipidemia Performed By: #### C OVID-19 MARS, SOFIANEG #### [facility] [address] Lymphocytes Auto (Bld) [#/Vo l]Ordered By: Feliciano Ga on 09-08-2022 Lymphocytes (Bld) [#/Vol] 1.3 10*3/uL 1.00-4.8 [facility] Lymphocytes/100 WBC Auto (Bl d)Ordered By: Feliciano Ga on 09-08-2022 Lymphocytes/100 WBC (Bld) 27.0 % . [facility] MCH Auto (RBC) [Entitic mass ]Ordered By: Feliciano Ga on 09-08-2022 MCH (RBC) [Entitic mass] 33.5 pg 27.5-35.2 [facility] MCHC Auto (RBC) [Mass/Vol]Or dered By: Feliciano Ga on 09-08-2022 MCHC (RBC) [Mass/Vol] 33.6 g/dL 32.5-35.6 [facility] MCV Auto (RBC) [Entitic vol] Ordered By: Feliciano Ga on 09-08-2022 MCV (RBC) [Entitic vol] 99.7 fL 83.5-101 [facility] Monocytes Auto (Bld) [#/Vol] Ordered By: Feliciano Ga on 09-08-2022 Monocytes (Bld) [#/Vol] 0.3 10*3/uL 0.0-0.8 [facility] Monocytes/100 WBC Auto (Bld) Ordered By: Feliciano Ga on 09-08-2022 Monocytes/100 WBC (Bld) 7.2 % . [facility] Natriuretic peptide B [Mass/ Vol]Ordered By: Bhupinder Mcintyre on 09-08-2022 Natriuretic peptide B (Bld) [Mass/Vol] 123.0 pg/mL 5-100 [facility] Neutrophils Auto (Bld) [#/Vo l]Ordered By: Feliciano Ga on 09-08-2022 Neutrophils (Bld) [#/Vol] 2.2 10*3/uL 1.8-7.7 [facility] Neutrophils/100 WBC Auto (Bl d)Ordered By: Feliciano Ga on 09-08-2022 Neutrophils/100 WBC (Bld) 48.2 % . [facility] No Panel Informationon 09-08 123.0\S\123.0 above high threshold 5-100 [facility] Heart-Sandu lauro 250 DO Work Phone: Comment on above: PERFORMED BY:[facility] [place], [place] [phone] MEDICAL DIRECTORJAYY SANTA M.D. No Panel InformationOrdered By: Feliciano Ga on 09-08-2022 Estimated GFR (CKD-EPI) > 60.0 mL/Min [facility] Creatinine Clearance (Chem N/A [facility] Nucleated erythrocytes [Pres ence] in Blood by Automated countOrdered By: Feliciano Ga on 09-08-2022 Nucleated RBC Auto Ql (Bld) 0.2 /100{WBC} 0-0.5 [facility] PSA Screen (Yearly Only)on 0 09-08-2022 PSA Screen (Yearly Only) 2.140 ng/mL Normal 0.000-4.00 0 [facility] Comment on above: Order Comment: Reaso n for Exam Screening for prostate cancer Is patient <50 yrs? Medicare does not pay <50.: N What is the date of the last PSA Screen?: 596201 Is Medicare the insurance?: Y Did you verify eligibility (Dx Time) check TestViewGp: YES TO ALL Result Comment: PERF ORMED BY: [facility] [address] [facility] [place] [address] PATHOLOGIST DRY WALL PLASTERER JAYY SANTA M.D. Performed By: #### C OVID-19 MARS, SOFIANEG #### [facility] [address] [place] [address] [place] Platelet mean volume Auto (B ld) [Entitic vol]Ordered By: Feliciano Ga on 09-08-2022 Platelet mean volume (Bld) [Entitic vol] 8.8 fL 6.6-10.1 [facility] Platelets Auto (Bld) [#/Vol] Ordered By: Feliciano Ga on 09-08-2022 Platelets (Bld) [#/Vol] 155 10*3/uL 150-450 [facility] Potassium [Moles/volume] in Serum or PlasmaOrdered By: Feliciano Ga on 09-08-2022 Potassium [Moles/Vol] 4.0 mmol/L 3.5-5.1 [facility] Prostate specific Ag [Mass/v olume] in Serum or PlasmaOrdered By: Feliciano Ga on 09-08-2022 Prostate specific Ag [Mass/Vol] 2.140 ng/mL 0.000-4.00 0 [facility] Protein [Mass/volume] in Ser um or PlasmaOrdered By: Feliciano Ga on 09-08-2022 Protein [Mass/Vol] 6.3 g/dL 6.4-8.[address] [facility] RBC Auto (Bld) [#/Vol]Ordere d By: Feliciano Ga on 09-08-2022 RBC (Bld) [#/Vol] 3.73 10*6/uL 3.90-5.60 [facility] Serum or plasma albumin/glob ulin mass ratioOrdered By: Feliciano Ga on 09-08-2022 Albumin/Globulin [Mass ratio] 1.9 {ratio} [facility] Serum or plasma anion gap de terminationOrdered By: Feliciano Ga on 09-08-2022 Anion gap [Moles/Vol] 8.3 mmol/L 6.0-15.0 [facility] Serum or plasma high density lipoprotein (HDL) cholesterol measurementOrdered By: Feliciano Ga on 09-08-2022 Cholesterol in HDL [Mass/Vol] 67 mg/dL 23-92 [facility] Comment on above: HDL CHOL ATP-III CLA SSIFICATION Cardiovascular RiskHDL > or equal to 60 mg/dL LOWHDL < 40 mg/dL HIGH Serum or plasma total choles terol/high density lipoprotein (HDL) cholesterol mass ratOrdered By: Feliciano Ga on 09-08-2022 Cholesterol.total/Chol esterol in HDL [Mass ratio] 1.9 {ratio} <5.0 [facility] Sodium [Moles/volume] in Ser um or PlasmaOrdered By: Feliciano Ga on 09-08-2022 Sodium [Moles/Vol] 142 mmol/L 136-[address] [facility] Thyroid Stimulating Hormoneo n 09-08-2022 TSH Qn 0.46 m[IU]/L Normal 0.45-5.33 [facility] Comment on above: Order Comment: Reaso n for Exam Weight loss Reason for Exam Hyperlipidemia Result Comment: PERF ORMED BY: [facility] [address] [place] [address] PATHOLOGIST DRY WALL PLASTERER JAYY SANTA M.D. Performed By: #### C OVID-19 MARS, SOFIANEG #### [facility] [address] Thyrotropin [Units/volume] i n Serum or PlasmaOrdered By: Feliciano Ga on 09-08-2022 TSH Qn 0.46 m[IU]/L 0.45-5.33 [facility] Thyroxine (T4) free [Mass/vo lume] in Serum or PlasmaOrdered By: Feliciano Ga on 09-08-2022 Free T4 [Mass/Vol] 1.28 ng/dL 0.61-1.[address] [facility] Triglyceride [Mass/volume] i n Serum or PlasmaOrdered By: Feliciano Ga on 09-08-2022 Triglyceride [Mass/Vol] 66 mg/dL 0-149 [facility] Comment on above: TRIG ATP III CLASSIF ICATIONTRIG less than 150 mg/dL NormalTRIG 150-199 mg/dL Borderline highTRIG 200-500 mg/dL High TRIG greater than 500 mg/dL Very highStandard traceable to the Center for Disease Conrtrol and Prevention (CDC) test method. Urea nitrogen [Mass/volume] in Serum or PlasmaOrdered By: Feliciano Ga on 09-08-2022 Urea nitrogen [Mass/Vol] 22 mg/dL 7-25 [facility] WBC Auto (Bld) [#/Vol]Ordere d By: Feliciano Ga on 09-08-2022 WBC (Bld) [#/Vol] 4.7 10*3/uL 4.1-10.[address] [facility] Office Visit (Cardiology)on 07-07-2022 Follow-up visit Diagnoses/Problems Assessed Heart failure, NYHA class 2 (428.9) (I50.9) Chronic atrial fibrillation (427.31) (I48.20) Non-ischemic cardiomyopathy (425.4) (I42.8) Mild CAD (414.00) (I25.10) Hyperlipemia (272.4) (E78.5) Chronic anticoagulation (V58.61) (Z79.01) Essential hypertension, benign (401.1) (I10) High risk medication use (V58.69) (Z79.899) Edema (782.3) (R60.9) Overweight with body mass index (BMI) of 28 to 28.9 in adult (278.02,V85.24) (E66.3,Z68.28) Former smoker (V15.82) (Z87.891) Quit smoking in 1979 H/O sick sinus syndrome (V12.59) (Z86.79) Orders Chronic anticoagulation, Chronic atrial fibrillation, High risk medication use Complete Blood Count; Status:Active - Retrospective Authorization; Requested for:07Jul2022; Chronic atrial fibrillation, Edema, Essential hypertension, benign, Heart failure, NYHA class 2, Non-ischemic cardiomyopathy Basic Metabolic Panel; Status:Active - Retrospective Authorization; Requested for:07Jul2022; Heart failure, NYHA class 2 Brain Natriuretic Peptide BNP; Status:Active - Retrospective Authorization; Requested for:07Jul2022; Hyperlipemia Renew: Atorvastatin Calcium 40 MG Oral Tablet; TAKE 1 TABLET Bedtime Lipid Panel; Status:Active - Retrospective Authorization; Requested for:07Jul2022; Overweight with body mass index (BMI) of 28 to 28.9 in adult Healthy Weight Tips; Status:Complete - Retrospective Authorization; Done: 07Jul2022 Some eating tips that can help you lose weight.; Status:Complete - Retrospective Authorization; Done: 07Jul2022 SocHx: Former smoker Tobacco Use Screening; Status:Complete; Done: 07Jul2022 Patient Instructions Please bring all medicines, vitamins, and herbal supplements with you when you come to the office. Prescriptions will not be filled unless you are compliant with your follow up appointments or have a follow up appointment scheduled as per instruction of your physician. Refills should be requested at the time of your visit. Follow up in 1 year. Chief Complaint IRINEO WALLIS is being seen for an annual follow-up of. 81-year-old gentleman returns for follow-up he is doing well he has no cardiovascular complaints other than noncardiac related osteoarthritis issues and ambulatory debility. He remains independent, affable and. He has a history of nonischemic cardiomyopathy with mild left ventricular dysfunction, atrial fibrillation, borderline sick sinus syndrome with no pacemaker and the above-mentioned arthritis. He has right greater than left chronic edema that is unchanged due to history of prior knee replacements, hip replacements and back surgery. He has no angina, hospitalizations, denies any worsening of his edema or shortness of breath. He did have some moderate bradycardia at one point and carvedilol and digoxin were discontinued by Dr. Drew NYHA classification is class II/C Recommendations, follow-up in 1 year on same therapy Surgical History Problems History of Back surgery History of Cardiac catheterization History of Complete colonoscopy [facility] History of Epidural steroid injection History of Hip replacement History of Knee replacement 2016 and 2020 History of Neck surgery History of Prostate surgery History of Shoulder arthroscopy Current Meds Medication NameInstruction Acetaminophen 325 MG Oral TabletTAKE 1 TO 2 TABLETS EVERY 6 HOURS NEEDED. Allopurinol 300 MG Oral TabletTAKE 1 TABLET DAILY. Atorvastatin Calcium 40 MG Oral TabletTAKE 1 TABLET Bedtime Bumetanide 1 MG Oral TabletTAKE 1 TABLET BY MOUTH EVERY DAY Eliquis 5 MG Oral TabletTAKE 1 TABLET Twice daily Eszopiclone 3 MG Oral TabletTAKE 1 TABLET AT BEDTIME NEEDED FOR SLEEP. Klor-Con M20 20 MEQ Oral Tablet Extended ReleaseTAKE 1 TABLET DAILY. Levothyroxine Sodium 150 MCG Oral TabletTAKE 1 TABLET DAILY. Magnesium Oxide 400 MG Oral TabletTAKE 1 TABLET BY MOUTH EVERY DAY oxyCODONE-Acetaminophen 5-325 MG Oral TabletTAKE 1 TABLET BY MOUTH TWICE A DAY NEEDED traZODone HCl - 50 MG Oral TabletTAKE 1 TABLET AT BEDTIME NEEDED FOR SLEEP. Allergies Medication Duragesic-75 PT72 Adverse Reaction; Dizziness; Nausea; Recorded By: Elaina Dang; 11/17/2020 2:54:19 PM Indocin Allergy; Recorded By: Elaina Dang; 11/17/2020 2:54:19 PM Penicillins Allergy; Recorded By: Elaina Dang; 11/17/2020 2:54:19 PM Ambien Allergy; Recorded By: Elaina Dang; 11/17/2020 2:54:19 PM Social History Problems Caffeine use (V49.89) (Z78.9) Coffee 2 cups daily Daily alcohol use 1-2 beers Former smoker (V15.82) (Z87.891) Quit smoking in 1979 No illicit drug use Review of Systems Constitutional: not feeling tired. Cardiovascular: no intermittent leg claudication and as noted in HPI. Respiratory: no cough and no shortness of breath. Gastrointestinal: no change in bowel habits and no blood in stools. Integumentary: no skin rashes. Neurological: no seizures and no frequent falls. All other sy (more content not included)... Normal FRM Study Course Tobacco Screening.on 023 Tobacco use status [facility] b) No [facility] Heart-Sandu lauro 250 DO Work Phone: US KIDNEYS BLADDERon 023 US KIDNEYS BLADDER EXAM: US KIDNEYS [place] DDER 05/13/2022 HISTORY: Urinary tract infectious disease COMPARISON: None. TECHNIQUE: Real-time retroperitoneal ultrasound. Findings: The right and left kidneys measure 9.2 and 10.1 cm. There is good corticomedullary differentiation. No renal stones or collecting system dilatation. No focal mass or perinephric fluid collection. The bladder is fluid-filled and unremarkable with a prevoid volume of 159 mL. Postvoid residual of 81 mL. The prostate measures 3.9 x 4.4 x 4.6 cm and there are parenchymal calcifications. IMPRESSION: 1. Unremarkable sonographic appearance of the kidneys. 2. Postvoid residual volume within the bladder. Electronically authenticated by: RONALD ISRAEL Date: 2022-05-13 09:51 Normal [facility] Cardiovasc Arrhythmia Result son 03-15-2022 Cardiovasc Arrhythmia Results Reason For Visit Reason for Visit: Holter Monitor: IRINEO is here for the application of a 24 hour Holter monitor. Ordering Physician: Enedelia Aguillon NP Diagnosis: afib [facility] equipment agreement signed. IRINEO understands monitor is to be returned on: 03/16/2022 Monitor number [id number] applied. Holter monitor printed and placed on Dr. Marv Drew MD desk to dictate. Procedure 1?the rhythm is atrial fibrillation throughout the recording with an average heart rate 85 bpm, minimum heart rate was 52 bpm and maximal heart rate was 148 bpm. 2?frequent mostly isolated premature ventricular complexes. There was 1811 beats in total representing 1.8% of total QRS complexes including 23 events of ventricular couplets 3?no pauses exceeding 2 seconds were noted 4?no diary was returned Conclusion: 24-hour Holter monitor that demonstrated atrial fibrillation throughout the recording with an average heart rate 85 bpm. Frequent mostly isolated PVCs were noted with 23 event of ventricular couplets. Total load of PVCs was 1.8%. No pauses exceeding 2 seconds were seen and no diary was returned Diagnosis/Problems Assessed Chronic atrial fibrillation (427.31) (I48.20) Future Appointments Date/TimeProviderSpecialty Site 07/07/2022 09:20 Irineo Link DOCardiology703 [facility] 2 [address] 250 DO Signatures Electronically signed by : Marv Drew MD; Mar 19 2022 6:25PM EST (Author) Electronically signed by : Enedelia Gomez APRN-IT APPLICATION ADMINISTRATOR; Mar 22 2022 9:37AM EST (Author) Normal FRM Study Course Basic Metabolic Panelon 01-0 Anion gap [Moles/Vol] 10.1 mmol/L Normal 6.0-15.[address] [facility] Comment on above: Performed By: #### C OVID-19 DOUGIE CREWSIANEG #### [facility] [address] [place] [address] [place] Calcium [Mass/Vol] 9.9 mg/dL Normal 8.2-10.[address] [facility] Comment on above: Result Comment: PERF ORMED BY: [place] [address] PATHOLOGIST DRY WALL PLASTERER JAYY SANTA M.D. Performed By: #### C OVID-19 MARS SOFIANEG #### [facility] [address] [place] [id number] [place] Chloride [Moles/Vol] 100 mmol/L Normal 95-114 [facility] Comment on above: Performed By: #### C OVID-19 MARS SOFIANEG #### [facility] [address] [place] [id number] [place] CO2 [Moles/Vol] 30.5 mmol/L High 22.0-30.0 [facility] Comment on above: Performed By: #### C OVID-19 MARS, SOFIANEG #### [facility] [address] Creatinine [Mass/Vol] 1.28 mg/dL High 0.64-1.27 [facility] Comment on above: Performed By: #### C OVID-19 MARS, SOFIANEG #### [facility] [address] Estimated GFR ( Amarilis > 60 [facility] Comment on above: Result Comment: GFR estimated reference range: According to KDOQI guidelines, <60 ml/min/1.73m2 is sufficient to diagnose a patient with chronic kidney disease. Performed By: #### C OVID-19 MARS, SOFIANEG #### [facility] [address] [place] [address] [place] Estimated GFR (Non- Am 54 Normal [facility] Comment on above: Performed By: #### C OVID-19 MARS, SOFIANEG #### [address] Glucose [Mass/Vol] 96 mg/dL Normal 70-[address] [facility] Comment on above: Result Comment: [place] Glucose Reference Range is dependent on time and content of last meal. Glucose of more than 200 mg/dL in a nonstressed, ambulatory subject supports the diagnosis of Diabetes Mellitus. ADA recommended reference range Performed By: #### C OVID-19 MARS, SOFIANEG #### [address] Potassium [Moles/Vol] 3.6 mmol/L Normal 3.5-5.1 [facility] Comment on above: Performed By: #### C OVID-19 MARS, SOFIANEG #### [place] [address] [place] Sodium [Moles/Vol] 137 mmol/L Normal 136-[address] [facility] Comment on above: Performed By: #### C OVID-19 MARS, SOFIANEG #### [facility] [address] [place] [address] [place] Urea nitrogen [Mass/Vol] 17 mg/dL Normal 9-23 [facility] Comment on above: Performed By: #### C OVID-19 JOSE CREWS #### [facility] [address] [place] [address] [place] Creatinine and Glomerular fi ltration rate.predicted panel (S/P/Bld)Ordered By: Enedelia Gomez on 03-11-2022 Creatinine [Mass/Vol] 1.28 mg/dL 0.64-1.27 [facility] Estimated glomerular filtrat ion rate (GFR) non- AmericanOrdered By: Enedelia Gomez on 03-11-2022 GFR/1.73 sq M.predicted among non-blacks MDRD (S/P/Bld) [Vol rate/Area] 54 mL/Min [facility] No Panel InformationOrdered By: Enedelia Gomez on 03-11-2022 Estimated GFR () > 60 mL/Min [facility] Comment on above: GFR estimated refere nce range: According to KDOQI guidelines, <60 ml/min/1.73m2 is sufficient to diagnose a patient with chronic kidney disease. Pharmacy Creatinine Clearance (Chem N/A [facility] No Panel Informationon 03-11 10.1\S\10.1 Normal 6.0-15.0 [facility] [employer] 250 DO Work Phone: 9.9\S\9.9 Normal 8.2-10.2 [facility] [employer] 250 DO Work Phone: Comment on above: PERFORMED BY:[facility] [place], [place] [phone] MEDICAL DIRECTORJAYY SANTA M.D. 30.5\S\30.5 above high threshold 22.0-30.0 [facility] [employer] 250 DO Work Phone: 100\S\100 Normal 95-114 [facility] [employer] 250 DO Work Phone: 3.6\S\3.6 Normal 3.5-5.1 [facility] [employer] lauro 250 DO Work Phone: 137\S\137 Normal 136-146 [facility] [employer] 250 DO Work Phone: > 60 Normal [facility] [employer] lauro 250 DO Work Phone: Comment on above: GFR estimated refere nce range: According to KDOQI guidelines, <60 ml/min/1.73m2 is sufficient to diagnose a patient with chronic kidney disease. 54\S\54 Normal [facility] la[facility] 250 DO Work Phone: 1.28\S\1.28 above high threshold 0.64-1.27 [facility] [employer] 250 DO Work Phone: 17\S\17 Normal 9-23 [facility] [employer] 250 DO Work Phone: 96\S\96 Normal 70-100 [facility] [employer] lauro 250 DO Work Phone: Comment on above: Random Glucose Refer ence Range is dependent on time and content of last meal. Glucose of more than 200 mg/dL in a nonstressed, ambulatory subject supports the diagnosis of Diabetes Mellitus. ADA recommended reference range Serum or plasma anion gap de terminationOrdered By: Enedelia Gomez on 03-11-2022 Anion gap [Moles/Vol] 10.1 mmol/L 6.0-15.[address] [facility] Serum or plasma calcium alistair urement (mass/volume)Ordered By: Enedelia Gomez on 03-11-2022 Calcium [Mass/Vol] 9.9 mg/dL 8.2-10.[address] [facility] Serum or plasma chloride jaymie surement (moles/volume)Ordered By: Enedelia Gomez on 03-11-2022 Chloride [Moles/Vol] 100 mmol/L 95-114 [facility] Serum or plasma glucose alistair urement (mass/volume)Ordered By: Enedelia Gomez on 03-11-2022 Glucose [Mass/Vol] 96 mg/dL 70-[address] [facility] Comment on above: ADA recommended refe rence rangeRandom Glucose Reference Range is dependent on time and content of last meal. Glucose of more than 200 mg/dL in a nonstressed, ambulatory subject supports the diagnosis of Diabetes Mellitus. Serum or plasma potassium me asurement (moles/volume)Ordered By: Enedelia Gomez on 03-11-2022 Potassium [Moles/Vol] 3.6 mmol/L 3.5-5.1 [facility] Serum or plasma sodium measu rement (moles/volume)Ordered By: Enedelia Gomez on 03-11-2022 Sodium [Moles/Vol] 137 mmol/L 136-[address] [facility] Serum or plasma total carbon dioxide measurement (moles/volume)Ordered By: Enedelia Gomez on 03-11-2022 CO2 [Moles/Vol] 30.5 mmol/L 22.0-30.0 [facility] Serum or plasma urea nitroge n measurement (mass/volume)Ordered By: Enedelia Gomez on 03-11-2022 Urea nitrogen [Mass/Vol] 17 mg/dL 9-23 [facility] Office Visit (Cardiology)on 03-10-2022 Follow-up visit Diagnoses/Problems Assessed Chronic atrial fibrillation (427.31) (I48.20) Chronic atrial fibrillation with treatment strategy of rate control on no AV jordon agents. On carvedilol 6.25 mg twice daily and digoxin noted bradycardia with 3.0 pause. Sick sinus syndrome Will check Holter monitor to verify no evidence of tachybradycardia syndrome. Chronic anticoagulation (V58.61) (Z79.01) CHADS VASc 3 Anticoagulated full dose Eliquis. Age 81, most recent creatinine 1.5, weight 187 pounds. Will recheck creatinine and reduce dose if warranted. Non-ischemic cardiomyopathy (425.4) (I42.8) Nonischemic heart failure with improved ejection fraction LVEF 60-65% January 2022 echo (2017 LVEF 25%) Echocardiogram abnormal (793.2) (R93.1) January 2022 echo LVEF 60 to 65% LVH mild/moderate Left atrium moderately dilated Right atrium moderately dilated RVSP 45 mmHg Essential hypertension, benign (401.1) (I10) optimal in office Edema (782.3) (R60.9) 'not near what they were' no need for compression stockings Bumex most days of the week Class 1 obesity with body mass index (BMI) of 30.0 to 30.9 in adult (278.00,V85.30) (E66.9,Z68.30) Discussed unintentional weight loss and to notify PCP if continued. Patient reports that he just does not feel like eating very much Mild CAD (414.00) (I25.10) May 2016 cardiac cath LAD 20 to 30% luminal irregularities, RCA 10 to 20% luminal irregularities, circumflex and left main normal. Orders Chronic anticoagulation, Chronic atrial fibrillation Basic Metabolic Panel; Status:Active; Requested for:10Mar2022; Chronic atrial fibrillation IO Holter Monitor up to 48 Hrs; Status:Complete; Done: 11Mar2022 Class 1 obesity with body mass index (BMI) of 30.0 to 30.9 in adult Healthy Weight Tips; Status:Complete; Done: 10Mar2022 Patient Instructions Please bring all medicines, vitamins, and herbal supplements with you when you come to the office. Prescriptions will not be filled unless you are compliant with your follow up appointments or have a follow up appointment scheduled as per instruction of your physician. Refills should be requested at the time of your visit. Fall prevention education given PLAN: Through informed decision making process incorporating patients unique circumstances, the following treatment plan will be initiated: 1. Prescription drug management of cardiovascular medication for efficacy, adherence to treatment, side effect assessment and polypharmacy. Current treatment clinically warranted and to continue without modifications. 2. Chem6 3. 24 hour holter to make sure heart rates are ok and not too slow 4. Return for follow-up; in the interim, contact the office if new symptoms arise. Dr. Mcintyre as scheduled [facility] f/u: 'seem to be doing fine' IRINEO WALLIS is being seen for follow-up of a hospitalization for dizziness. Patient presents to the office ambulatory with wheeled walker and steady gait. Last evaluated in clinic Dr. Mcintyre July 2021. January 2022 hospitalized at [facility] due to fall, noted bradycardia with 3.0-second pause he was seen in consultation by Dr. Drew. He has carvedilol 6.25 mg and digoxin were discontinued. Off of these remaining telemetry did not show any significant bradycardia or high-grade heart block. His dose of Entresto was also discontinued due to hypotension. Inpatient echocardiogram LVEF 60 to 65%. Creatinine 1.5. Patient presents to the office today were overall reports feeling better . Does do light housework. Has had no recurrent falls. He goes to physical therapy 3 times a week, he denies any type of dizziness or lightheadedness. He seems to have more energy. He describes very rare postural orthostatic hypotension in the bottom presser. He denies any palpitations or fast heartbeats. History of Present Illness The patient presents with permanent atrial fibrillation. The treatment strategy for this patient is rate control. He states his atrial fibrillation has been well controlled since the last visit. Symptoms: denies palpitations, denies chest pain, improved exercise intolerance, denies dyspnea on exertion and resolved dizziness. Associated symptoms include no syncope. Medications: the patient is adherent with his medication regimen. Disease Management: the patient is not doing well with his goals. Surgical History Problems History of Back surgery History of Cardiac catheterization History of Complete colonoscopy [facility] History of Epidural steroid injection History of Hip replacement History of Knee replacement 2016 and 2020 History of Neck surgery History of Prostate surgery History of Shoulder arthroscopy Current Meds Medication NameInstruction Acetaminophen 325 MG Oral TabletTAKE 1 TO 2 TABLETS EVERY 6 HOURS NEEDED. Allopurinol 300 MG Oral TabletTAKE 1 TABLET DAILY. Atorvastatin Calcium 40 MG Oral TabletTAKE 1 (more content not included)... Normal FRM Study Course Tobacco Screening.on 023 Adult depression screening assessment No [facility] [employer] DO Work Phone: Fall risk assessment b) One or more fall s in the last year [facility] [employer] 250 DO Work Phone: Tobacco use status CPHS b) No [facility] [employer] 250 DO Work Phone: Basic Metabolic Panelon 01-05 Anion gap [Moles/Vol] 11.4 mmol/L Normal 6.0-15.[address] [facility] Comment on above: Performed By: #### C , BMP #### [facility] [address] Calcium [Mass/Vol] 9.0 mg/dL Normal 8.2-10.[address] [facility] Comment on above: Performed By: #### C BC, BMP #### [facility] [address] [place] [address] [place] Chloride [Moles/Vol] 95 mmol/L Normal 95-114 [facility] Comment on above: Performed By: #### C BC, BMP #### [facility] [address] CO2 [Moles/Vol] 29.6 mmol/L Normal 22.0-30.0 [facility] Comment on above: Performed By: #### C BC, BMP #### [facility] [address] Creatinine [Mass/Vol] 1.56 mg/dL High 0.64-1.27 [facility] Comment on above: Performed By: #### C BC, BMP #### [facility] [address] [place] [address] [place] Creatinine Clr Calc Pharmacy 39.79 [facility] Comment on above: Result Comment: PERF ORMED BY: [place] [address] PATHOLOGIST DRY WALL PLASTERER JAYY SANTA M.D. Performed By: #### C BC, BMP #### [address] Estimated GFR ( Amarilis 52 [facility] Comment on above: Result Comment: GFR estimated reference range: According to KDOQI guidelines, <60 ml/min/1.73m2 is sufficient to diagnose a patient with chronic kidney disease. Performed By: #### C BC, BMP #### [facility] [address] [place] [address] [place] Estimated GFR (Non- Am 43 [facility] Comment on above: Performed By: #### C BC, BMP #### [facility] [address] Glucose [Mass/Vol] 87 mg/dL Normal 70-[address] [facility] Comment on above: Result Comment: [place] om Glucose Reference Range is dependent on time and content of last meal. Glucose of more than 200 mg/dL in a nonstressed, ambulatory subject supports the diagnosis of Diabetes Mellitus. ADA recommended reference range Performed By: #### C BC, BMP #### [address] Potassium [Moles/Vol] 4.0 mmol/L Normal 3.5-5.1 [facility] Comment on above: Performed By: #### C BC, BMP #### [address] Sodium [Moles/Vol] 132 mmol/L Low 136-[address] [facility] Comment on above: Performed By: #### C BC, BMP #### [address] Urea nitrogen [Mass/Vol] 29 mg/dL High 9-23 [facility] Comment on above: Performed By: #### C BC, BMP #### [place] [address] [place] Basophils Auto (Bld) [#/Vol] Ordered By: RajiRobertson on 01-16-2022 Basophils (Bld) [#/Vol] 0.1 10*3/uL 0.0-0.2 [facility] Basophils/100 WBC Auto (Bld) Ordered By: Raji Raymon on 01-16-2022 Basophils/100 WBC (Bld) 1.0 % . [facility] Complete Blood Count Auto Di ffon 01-16-2022 Basophils (Bld) [#/Vol] 0.1 10*3/uL Normal 0.0-0.2 [facility] Comment on above: Result Comment: PERF ORMED BY: [place] [address] PATHOLOGIST DRY WALL PLASTERER JAYY SANTA M.D. Performed By: #### C BC, BMP #### [address] Basophils/100 WBC (Bld) 1.0 % Normal . [facility] Comment on above: Performed By: #### C BC, BMP #### [facility] [address] Eosinophils (Bld) [#/Vol] 0.4 10*3/uL Normal 0.0-0.45 [facility] Comment on above: Performed By: #### C BC, BMP #### [address] Eosinophils/100 WBC (Bld) 5.6 % Normal . [facility] Comment on above: Performed By: #### C BC, BMP #### [address] Erythrocyte distribution width (RBC) [Ratio] 15.3 % High 12.0-14.8 [facility] Comment on above: Performed By: #### C BC, BMP #### [address] Hematocrit (Bld) [Volume fraction] 35.4 % Low 38.8-50.0 [facility] Comment on above: Performed By: #### C BC, BMP #### [address] Hemoglobin (Bld) [Mass/Vol] 11.8 g/dL Low 13.0-17.0 [facility] Comment on above: Performed By: #### C BC, BMP #### [address] Lymphocytes (Bld) [#/Vol] 1.1 10*3/uL Normal 1.00-4.8 [facility] Comment on above: Performed By: #### C BC, BMP #### [address] Lymphocytes/100 WBC (Bld) 17.1 % Normal . [facility] Comment on above: Performed By: #### C BC, BMP #### [address] MCH (RBC) [Entitic mass] 33.2 pg Normal 27.5-35.2 [facility] Comment on above: Performed By: #### C BC, BMP #### [address] [place] [address] [place] MCV (RBC) [Entitic vol] 100.0 fL Normal 83.5-101 [facility] Comment on above: Performed By: #### C BC, BMP #### [facility] [address] Mean Corpuscular HGB Conc 33.3 g/dL Normal 32.5-35.6 [facility] Comment on above: Performed By: #### C BC, BMP #### [facility] [address] Monocytes (Bld) [#/Vol] 0.8 10*3/uL Normal 0.0-0.8 [facility] Comment on above: Performed By: #### C KARTIK, BMP #### [address] Monocytes/100 WBC (Bld) 11.9 % Normal . [facility] Comment on above: Performed By: #### C KARTIK, BMP #### [place] [address] [place] Neutrophils (Bld) [#/Vol] 4.2 10*3/uL Normal 1.8-7.7 [facility] Comment on above: Performed By: #### C KARTIK, BMP #### [address] Neutrophils/100 WBC (Bld) 64.4 % Normal . [facility] Comment on above: Performed By: #### C KARTIK, BMP #### [place] [address] [place] Nucleated RBC/100 WBC (Bld) [Ratio] 0.0 % Normal 0-0.5 [facility] Comment on above: Performed By: #### C BC, BMP #### [address] Platelet mean volume (Bld) [Entitic vol] 9.1 fL Normal 6.6-10.1 [facility] Comment on above: Performed By: #### C BC, BMP #### [address] [place] [address] [place] Platelets (Bld) [#/Vol] 195 10*3/uL Normal 150-450 [facility] Comment on above: Performed By: #### C KARTIK, BMP #### [facility] [address] RBC (Bld) [#/Vol] 3.54 10*6/uL Low 3.90-5.60 [facility] Comment on above: Performed By: #### C KARTIK, BMP #### [facility] [address] WBC (Bld) [#/Vol] 6.5 10*3/uL Normal 4.5-11.[address] [facility] Comment on above: Performed By: #### C KARTIK, BMP #### [facility] [address] Creatinine and Glomerular fi ltration rate.predicted panel (S/P/Bld)Ordered By: Raji Ennis on 01-16-2022 Creatinine [Mass/Vol] 1.56 mg/dL 0.64-1.27 [facility] Eosinophils Auto (Bld) [#/Vo l]Ordered By: Raji Ennis on 01-16-2022 Eosinophils (Bld) [#/Vol] 0.4 10*3/uL 0.0-0.45 [facility] Eosinophils/100 WBC Auto (Bl d)Ordered By: Raji Ennis on 01-16-2022 Eosinophils/100 WBC (Bld) 5.6 % . [facility] Erythrocyte distribution wid th Auto (RBC) [Ratio]Ordered By: Raji Ennis on 01-16-2022 Erythrocyte distribution width (RBC) [Ratio] 15.3 % 12.0-14.8 [facility] Estimated glomerular filtrat ion rate (GFR) non- AmericanOrdered By: Raji Ennis on 01-16-2022 GFR/1.73 sq M.predicted among non-blacks MDRD (S/P/Bld) [Vol rate/Area] 43 mL/Min [facility] Hematocrit Auto (Bld) [Volum e fraction]Ordered By: Raji Ennis on 01-16-2022 Hematocrit (Bld) [Volume fraction] 35.4 % 38.8-50.0 [facility] Hemoglobin [Mass/volume] in BloodOrdered By: Raji Ennis on 01-16-2022 Hemoglobin (Bld) [Mass/Vol] 11.8 g/dL 13.0-17.0 [facility] Laboratory - Hematology and Cell countsOrdered By: Raji Ennis on 01-16-2022 Nucleated RBC/100 WBC (Bld) [Ratio] 0.0 % 0-0.5 [facility] Leukocytes [#/volume] in Blo od by Automated countOrdered By: Raji Ennis on 01-16-2022 WBC (Bld) [#/Vol] 6.5 10*3/uL 4.5-11.[address] [facility] Lymphocytes Auto (Bld) [#/Vo l]Ordered By: Raji Ennis on 01-16-2022 Lymphocytes (Bld) [#/Vol] 1.1 10*3/uL 1.00-4.8 [facility] Lymphocytes/100 WBC Auto (Bl d)Ordered By: Raji Ennis on 01-16-2022 Lymphocytes/100 WBC (Bld) 17.1 % . [facility] MCH Auto (RBC) [Entitic mass ]Ordered By: Raji Ennis on 01-16-2022 MCH (RBC) [Entitic mass] 33.2 pg 27.5-35.2 [facility] MCHC Auto (RBC) [Mass/Vol]Or dered By: Raji Ennis on 01-16-2022 MCHC (RBC) [Mass/Vol] 33.3 g/dL 32.5-35.6 [facility] MCV Auto (RBC) [Entitic vol] Ordered By: RajiStaufferam on 01-16-2022 MCV (RBC) [Entitic vol] 100.0 fL 83.5-101 [facility] Monocytes Auto (Bld) [#/Vol] Ordered By: Raji Arringtonam on 01-16-2022 Monocytes (Bld) [#/Vol] 0.8 10*3/uL 0.0-0.8 [facility] Monocytes/100 WBC Auto (Bld) Ordered By: Raji Arringtonam on 01-16-2022 Monocytes/100 WBC (Bld) 11.9 % . [facility] Neutrophils Auto (Bld) [#/Vo l]Ordered By: Raji Arringtonam on 01-16-2022 Neutrophils (Bld) [#/Vol] 4.2 10*3/uL 1.8-7.7 [facility] Neutrophils/100 WBC Auto (Bl d)Ordered By: Raji Ennis on 01-16-2022 Neutrophils/100 WBC (Bld) 64.4 % . [facility] No Panel InformationOrdered By: Raji Ennis on 01-16-2022 Estimated GFR () 52 mL/Min [facility] Comment on above: GFR estimated refere nce range: According to KDOQI guidelines, <60 ml/min/1.73m2 is sufficient to diagnose a patient with chronic kidney disease. Pharmacy Creatinine Clearance (Chem 39.79 [facility] Platelet mean volume Auto (B ld) [Entitic vol]Ordered By: Raji Ennis on 01-16-2022 Platelet mean volume (Bld) [Entitic vol] 9.1 fL 6.6-10.1 [facility] Platelets Auto (Bld) [#/Vol] Ordered By: Raji Ennis on 01-16-2022 Platelets (Bld) [#/Vol] 195 10*3/uL 150-450 [facility] RBC Auto (Bld) [#/Vol]Ordere d By: Raji Ennis on 01-16-2022 RBC (Bld) [#/Vol] 3.54 10*6/uL 3.90-5.60 [facility] Serum or plasma anion gap de terminationOrdered By: Raji Ennis on 01-16-2022 Anion gap [Moles/Vol] 11.4 mmol/L 6.0-15.[address] [facility] Serum or plasma calcium alistair urement (mass/volume)Ordered By: Raji Ennis on 01-16-2022 Calcium [Mass/Vol] 9.0 mg/dL 8.2-10.[address] [facility] Serum or plasma chloride jaymie surement (moles/volume)Ordered By: Raji Ennis on 01-16-2022 Chloride [Moles/Vol] 95 mmol/L 95-114 [facility] Serum or plasma glucose alistair urement (mass/volume)Ordered By: Raji Ennis on 01-16-2022 Glucose [Mass/Vol] 87 mg/dL 70-[address] [facility] Comment on above: ADA recommended refe rence rangeRandom Glucose Reference Range is dependent on time and content of last meal. Glucose of more than 200 mg/dL in a nonstressed, ambulatory subject supports the diagnosis of Diabetes Mellitus. Serum or plasma potassium me asurement (moles/volume)Ordered By: Raji Ennis on 01-16-2022 Potassium [Moles/Vol] 4.0 mmol/L 3.5-5.1 [facility] Serum or plasma sodium measu rement (moles/volume)Ordered By: Raji Ennis on 01-16-2022 Sodium [Moles/Vol] 132 mmol/L 136-[address] [facility] Serum or plasma total carbon dioxide measurement (moles/volume)Ordered By: Raji Ennis on 01-16-2022 CO2 [Moles/Vol] 29.6 mmol/L 22.0-30.0 [facility] Serum or plasma urea nitroge n measurement (mass/volume)Ordered By: Raji Ennis on 01-16-2022 Urea nitrogen [Mass/Vol] 29 mg/dL 9-23 [facility] Basic Metabolic Panelon 01-05 Anion gap [Moles/Vol] 8.2 mmol/L Normal 6.0-15.0 [facility] Comment on above: Performed By: #### B MP, CBC #### [facility] [address] [place] [address] [place] Calcium [Mass/Vol] 8.8 mg/dL Normal 8.2-10.[address] [facility] Comment on above: Performed By: #### B MP, CBC #### [facility] [address] [place] [id number] [place] Chloride [Moles/Vol] 94 mmol/L Low 95-114 [facility] Comment on above: Performed By: #### B MP, CBC #### [facility] [address] [place] [address] [place] CO2 [Moles/Vol] 31.7 mmol/L High 22.0-30.0 [facility] Comment on above: Performed By: #### B MP, CBC #### [facility] [address] [place] [address] [place] Creatinine [Mass/Vol] 1.50 mg/dL High 0.64-1.27 [facility] Comment on above: Performed By: #### B MP, CBC #### [facility] [address] [place] [address] [place] Creatinine Clr Calc Pharmacy 41.13 [facility] Comment on above: Result Comment: PERF ORMED BY: [place] [address] PATHOLOGIST DRY WALL PLASTERER JAYY SANTA M.D. Performed By: #### B MP, CBC #### [facility] [address] Estimated GFR ( Amarilis 54 [facility] Comment on above: Result Comment: GFR estimated reference range: According to KDOQI guidelines, <60 ml/min/1.73m2 is sufficient to diagnose a patient with chronic kidney disease. Performed By: #### B MP, CBC #### [facility] [address] [place] [address] [place] Estimated GFR (Non- Am 45 [facility] Comment on above: Performed By: #### B MP, CBC #### [facility] [address] [place] [address] [place] Glucose [Mass/Vol] 87 mg/dL Normal 70-[address] [facility] Comment on above: Result Comment: [place] Glucose Reference Range is dependent on time and content of last meal. Glucose of more than 200 mg/dL in a nonstressed, ambulatory subject supports the diagnosis of Diabetes Mellitus. ADA recommended reference range Performed By: #### B MP, CBC #### [facility] [address] [place] [address] [place] Potassium [Moles/Vol] 3.9 mmol/L Normal 3.5-5.1 [facility] Comment on above: Performed By: #### B MP, CBC #### [address] Sodium [Moles/Vol] 130 mmol/L Low 136-[address] [facility] Comment on above: Performed By: #### B MP, CBC #### [address] Urea nitrogen [Mass/Vol] 29 mg/dL High 9-23 [facility] Comment on above: Performed By: #### B MP, CBC #### [address] Complete Blood Count Auto Di ffon 01-15-2022 Basophils (Bld) [#/Vol] 0.1 10*3/uL Normal 0.0-0.2 [facility] Comment on above: Result Comment: PERF ORMED BY: [place] [address] PATHOLOGIST DRY WALL PLASTERER JAYY SANTA M.D. Performed By: #### B MP, CBC #### [address] Basophils/100 WBC (Bld) 0.7 % Normal . [facility] Comment on above: Performed By: #### B MP, CBC #### [place] [address] [place] Eosinophils (Bld) [#/Vol] 0.4 10*3/uL Normal 0.0-0.45 [facility] Comment on above: Performed By: #### B MP, CBC #### [address] Eosinophils/100 WBC (Bld) 4.9 % Normal . [facility] Comment on above: Performed By: #### B MP, CBC #### [address] Erythrocyte distribution width (RBC) [Ratio] 15.3 % High 12.0-14.8 [facility] Comment on above: Performed By: #### B MP, CBC #### [facility] [address] Hematocrit (Bld) [Volume fraction] 34.7 % Low 38.8-50.0 [facility] Comment on above: Performed By: #### B MP, CBC #### [facility] [address] Hemoglobin (Bld) [Mass/Vol] 11.7 g/dL Low 13.0-17.0 [facility] Comment on above: Performed By: #### B MP, CBC #### [facility] [address] Lymphocytes (Bld) [#/Vol] 1.0 10*3/uL Normal 1.00-4.8 [facility] Comment on above: Performed By: #### B MP, CBC #### [facility] [address] Lymphocytes/100 WBC (Bld) 13.2 % Normal . [facility] Comment on above: Performed By: #### B MP, CBC #### [facility] [address] MCH (RBC) [Entitic mass] 33.7 pg Normal 27.5-35.2 [facility] Comment on above: Performed By: #### B MP, CBC #### [facility] [address] MCV (RBC) [Entitic vol] 99.8 fL Normal 83.5-101 [facility] Comment on above: Performed By: #### B MP, CBC #### [facility] [address] Mean Corpuscular HGB Conc 33.8 g/dL Normal 32.5-35.6 [facility] Comment on above: Performed By: #### B MP, CBC #### [facility] [address] Monocytes (Bld) [#/Vol] 0.8 10*3/uL Normal 0.0-0.8 [facility] Comment on above: Performed By: #### B MP, CBC #### [facility] [address] [place] [address] [place] Monocytes/100 WBC (Bld) 10.1 % Normal . [facility] Comment on above: Performed By: #### B MP, CBC #### [facility] [address] [place] [id number] [place] Neutrophils (Bld) [#/Vol] 5.6 10*3/uL Normal 1.8-7.7 [facility] Comment on above: Performed By: #### B MP, CBC #### [facility] [address] [place] [address] [place] Neutrophils/100 WBC (Bld) 71.1 % Normal . [facility] Comment on above: Performed By: #### B MP, CBC #### [facility] [address] [place] [address] [place] Nucleated RBC/100 WBC (Bld) [Ratio] 0.0 % Normal 0-0.5 [facility] Comment on above: Performed By: #### B MP, CBC #### [facility] [address] [place] [address] [place] Platelet mean volume (Bld) [Entitic vol] 9.1 fL Normal 6.6-10.1 [facility] Comment on above: Performed By: #### B MP, CBC #### [facility] [address] [place] [address] [place] Platelets (Bld) [#/Vol] 180 10*3/uL Normal 150-450 [facility] Comment on above: Performed By: #### B MP, CBC #### [facility] [address] [place] [id number] [place] RBC (Bld) [#/Vol] 3.48 10*6/uL Low 3.90-5.60 [facility] Comment on above: Performed By: #### B MP, CBC #### [facility] [address] [place] [address] [place] WBC (Bld) [#/Vol] 7.9 10*3/uL Normal 4.5-11.[address] [facility] Comment on above: Performed By: #### B MP, CBC #### [address] Urine culture routineOrdered By: Victor Manuel Reynolds on 01-15-2022 Bacteria identified Cx Nom (U) No Growth 2 Days [facility] CT hip RT wo conon 2 CT hip RT wo con [facility] [place] [address] [place], [place] [id number] CT Scan Report Signed Patient: Irineo Wallis Jr MR#: [id number] : 1940 Acct:[id number] Age/Sex: 81 / M ADM Date: 01/09/22 Loc: Room: [address] [place] [address] Type: ADM IN Attending Dr: Raji Ennis MD Copies to: Raji Ennis MD Ordering Provider: Raji Ennis MD Date of Service: 01/14/22 CT/CT hip RT wo con: fracture? CT of the RIGHT hip without contrast TECHNIQUE: The CT exam was performed using one or more the following dose reduction techniques: Automated exposure control, adjustment of the MA and/or Kv according to patient size, or use of the iterative reconstruction technique. COMPARISON:Plain film 01/13/22 HISTORY:Question RIGHT hip fracture. Clinical falls. Joints weakness. No hip fracture identified. Mild RIGHT hip degeneration. Benign adjacent soft tissue calcifications of the head. Chronic changes of the greater trochanter. No subcutaneous edematous changes present. No hematoma seen. Chou catheter in urinary bladder. CT/CT hip RT wo con IMPRESSION: No acute bony findings. The lateral soft tissue swelling. Impression dictated by: Esa Cardoso M.D.01/14/2022 4:23 PM Dictation Location: [place] [address] Transcribed By: [facility] 01/14/22 1623 Dictated By: Esa Cardoso DO 01/14/22 1608 Signed By: 01/14/22 1623 Normal [facility] XR hip RT 1Von 01-14-2022 XR hip RT 1V [facility] Main [place] [address] [place] [id number] XRay Report Signed Patient: Irineo Wallis Jr MR#: [id number] : 1940 Acct:[id number] Age/Sex: 81 / M ADM Date: 01/09/22 Loc: 3T Room: [address] [place] [address] Type: ADM IN Attending Dr: Raji Ennis MD Copies to: MD Hoa Giles ANP-C Ordering Provider: MEI Tristan Date of Service: 01/13/22 XR/XR hip RT 1V: pain RIGHT HIP -1 view CLINICAL HISTORY: Generalized weakness. Frequent falls. COMPARISON: None FINDINGS: Examination is suboptimal due to body habitus as well as gross demineralization. There appears to be soft tissue swelling seen laterally. Moderate degenerative changes of the right hip without acute bony process noted. Pelvis is rotated also limiting evaluation. XR/XR hip RT 1V IMPRESSION: SUBOPTIMAL EXAMINATION. MODERATE DEGENERATIVE CHANGES OF THE RIGHT HIP WITHOUT ACUTE BONY PROCESS. AN OCCULT NONDISPLACED HIP FRACTURE IS OF CONCERN GIVEN THE SOFT TISSUE SWELLING, FURTHER EVALUATION WITH CT IS RECOMMENDED.. Impression dictated by: Ortega Groves Jr., NelsyODane01/14/2022 9:04 AM Dictation Location: [place] [address] Transcribed By: [facility] 01/14/22903 Dictated By: Ortega Groves Jr, DO 01/14/22902 Signed By: 01/14/22903 Normal [facility] Automated erythrocytes count in urine sediment (number/area)Ordered By: Victor Manuel Reynolds on 01-13-2022 RBC Auto (Urine sed) [#/Area] 50-100 [HPF] 0-4 [facility] Automated leukocytes count i n urine sediment (number/area)Ordered By: Victor Manuel Reynolds on 01-13-2022 WBC Auto (Urine sed) [#/Area] 5-9 [HPF] 0-4 [facility] Basic Metabolic Panelon Anion gap [Moles/Vol] 8.3 mmol/L Normal 6.0-15.0 [facility] Comment on above: Performed By: #### B MP, CBC #### [address] [place] [address] [place] Calcium [Mass/Vol] 8.5 mg/dL Normal 8.2-10.[address] [facility] Comment on above: Performed By: #### B MP, CBC #### [facility] [address] Chloride [Moles/Vol] 93 mmol/L Low 95-114 [facility] Comment on above: Performed By: #### B MP, CBC #### [facility] [address] CO2 [Moles/Vol] 32.6 mmol/L High 22.0-30.0 [facility] Comment on above: Performed By: #### B MP, CBC #### [address] Creatinine [Mass/Vol] 1.44 mg/dL High 0.64-1.27 [facility] Comment on above: Performed By: #### B MP, CBC #### [place] [address] [place] Creatinine Clr Calc Pharmacy 43.24 [facility] Comment on above: Result Comment: PERF ORMED BY: [place] [address] PATHOLOGIST DRY WALL PLASTERER JAYY SANTA M.D. Performed By: #### B MP, CBC #### [address] Estimated GFR ( Amarilis 57 [facility] Comment on above: Result Comment: GFR estimated reference range: According to KDOQI guidelines, <60 ml/min/1.73m2 is sufficient to diagnose a patient with chronic kidney disease. Performed By: #### B MP, CBC #### [place] [address] [place] Estimated GFR (Non- Am 47 [facility] Comment on above: Performed By: #### B MP, CBC #### [place] [address] [place] Glucose [Mass/Vol] 92 mg/dL Normal 70-[address] [facility] Comment on above: Result Comment: [place] Glucose Reference Range is dependent on time and content of last meal. Glucose of more than 200 mg/dL in a nonstressed, ambulatory subject supports the diagnosis of Diabetes Mellitus. ADA recommended reference range Performed By: #### B MP, CBC #### [facility] [address] Potassium [Moles/Vol] 3.9 mmol/L Normal 3.5-5.1 [facility] Comment on above: Performed By: #### B MP, CBC #### [facility] [address] Sodium [Moles/Vol] 130 mmol/L Low 136-[address] [facility] Comment on above: Performed By: #### B MP, CBC #### [facility] [address] Urea nitrogen [Mass/Vol] 24 mg/dL High 9-23 [facility] Comment on above: Performed By: #### B MP, CBC #### [address] Bilirubin Test strip Ql (U)O rdered By: Victor Manuel Reynolds on 01-13-2022 Bilirubin Ql (U) Negative Negative [facility] Color Auto (U)Ordered By: Brigitte Reynolds on 01-13-2022 Color (U) Yellow Yellow [facility] Complete Blood Count Auto Di ffon 01-13-2022 Basophils (Bld) [#/Vol] 0.1 10*3/uL Normal 0.0-0.2 [facility] Comment on above: Result Comment: PERF ORMED BY: [place] [address] PATHOLOGIST DRY WALL PLASTERER JAYY SANTA M.D. Performed By: #### B MP, CBC #### [place] [address] [place] Basophils/100 WBC (Bld) 1.0 % Normal . [facility] Comment on above: Performed By: #### B MP, CBC #### [facility] [address] [place] [address] Eosinophils (Bld) [#/Vol] 0.1 10*3/uL Normal 0.0-0.45 [facility] Comment on above: Performed By: #### B MP, CBC #### [address] Eosinophils/100 WBC (Bld) 0.7 % Normal . [facility] Comment on above: Performed By: #### B MP, CBC #### [address] Erythrocyte distribution width (RBC) [Ratio] 15.7 % High 12.0-14.8 [facility] Comment on above: Performed By: #### B MP, CBC #### [address] Hematocrit (Bld) [Volume fraction] 37.7 % Low 38.8-50.0 [facility] Comment on above: Performed By: #### B MP, CBC #### [address] Hemoglobin (Bld) [Mass/Vol] 12.4 g/dL Low 13.0-17.0 [facility] Comment on above: Performed By: #### B MP, CBC #### [address] Lymphocytes (Bld) [#/Vol] 1.2 10*3/uL Normal 1.00-4.8 [facility] Comment on above: Performed By: #### B MP, CBC #### [address] Lymphocytes/100 WBC (Bld) 13.0 % Normal . [facility] Comment on above: Performed By: #### B MP, CBC #### [address] MCH (RBC) [Entitic mass] 33.2 pg Normal 27.5-35.2 [facility] Comment on above: Performed By: #### B MP, CBC #### [address] MCV (RBC) [Entitic vol] 100.8 fL Normal 83.5-101 [facility] Comment on above: Performed By: #### B MP, CBC #### [address] Mean Corpuscular HGB Conc 33.0 g/dL Normal 32.5-35.6 [facility] Comment on above: Performed By: #### B MP, CBC #### [address] Monocytes (Bld) [#/Vol] 1.2 10*3/uL High 0.0-0.8 [facility] Comment on above: Performed By: #### B MP, CBC #### [address] Monocytes/100 WBC (Bld) 13.1 % Normal . [facility] Comment on above: Performed By: #### B MP, CBC #### [address] Neutrophils (Bld) [#/Vol] 6.8 10*3/uL Normal 1.8-7.7 [facility] Comment on above: Performed By: #### B MP, CBC #### [address] Neutrophils/100 WBC (Bld) 72.2 % Normal . [facility] Comment on above: Performed By: #### B MP, CBC #### [address] Nucleated RBC/100 WBC (Bld) [Ratio] 0.1 % Normal 0-0.5 [facility] Comment on above: Performed By: #### B MP, CBC #### [address] Platelet mean volume (Bld) [Entitic vol] 9.3 fL Normal 6.6-10.1 [facility] Comment on above: Performed By: #### B MP, CBC #### [facility] [address] [place] [address] [place] Platelets (Bld) [#/Vol] 162 10*3/uL Significant change down 150-450 [facility] Comment on above: Performed By: #### B MP, CBC #### [facility] [address] RBC (Bld) [#/Vol] 3.74 10*6/uL Low 3.90-5.60 [facility] Comment on above: Performed By: #### B MP, CBC #### [facility] [address] WBC (Bld) [#/Vol] 9.4 10*3/uL Normal 4.5-11.[address] [facility] Comment on above: Performed By: #### B MP, CBC #### [place] [address] [place] Dipstick and Microscopicon 1 03-15-2021 Appearance (U) Clear Normal Clear [facility] Comment on above: Order Comment: Name Collection Type:: Chou Catheter Performed By: #### C UU, ADDONUAPLUS #### [address] Bacteria,Urine None Seen Normal None Seen [facility] Comment on above: Order Comment: Name Collection Type:: Chou Catheter Performed By: #### C UU, ADDONUAPLUS #### [address] Bilirubin,Urine Negative Normal Negative [facility] Comment on above: Order Comment: Name Collection Type:: Chou Catheter Performed By: #### C UU, ADDONUAPLUS #### [place] [address] [place] Color (U) Yellow Normal Yellow [facility] Comment on above: Order Comment: Name Collection Type:: Chou Catheter Performed By: #### C UU, ADDONUAPLUS #### [place] [address] [place] Glucose Ql (U) Normal Normal Normal [facility] Comment on above: Order Comment: Name Collection Type:: Chou Catheter Performed By: #### C UU, ADDONUAPLUS #### [facility] [address] [place] [address] Hyaline Casts,Urine 0-8 Normal 0-8 [facility] Comment on above: Order Comment: Name Collection Type:: Chou Catheter Result Comment: PERF ORMED BY: [place] [address] PATHOLOGIST DRY WALL PLASTERER JAYY SANTA M.D. Performed By: #### C UU, ADDONUAPLUS #### [address] Ketones Ql (U) Negative Normal Negative [facility] Comment on above: Order Comment: Name Collection Type:: Chou Catheter Performed By: #### C UU, ADDONUAPLUS #### [address] Leukocyte esterase Test strip Ql (U) 2+ High Negative [facility] Comment on above: Order Comment: Name Collection Type:: Chou Catheter Performed By: #### C UU, ADDONUAPLUS #### [address] Nitrite,Urine Negative Normal Negative [facility] Comment on above: Order Comment: Name Collection Type:: Chou Catheter Performed By: #### C UU, ADDONUAPLUS #### [address] Occult Blood,Urine 3+ High Negative [facility] Comment on above: Order Comment: Name Collection Type:: Chou Catheter Result Comment: PERF ORMED BY: [place] [address] PATHOLOGIST DRY WALL PLASTERER JAYY SANTA M.D. Performed By: #### C UU, ADDONUAPLUS #### [facility] [address] [place] [address] pH (U) 5.5 [pH] Normal 5.0-9.0 [facility] Comment on above: Order Comment: Name Collection Type:: Chou Catheter Performed By: #### C UU, ADDONUAPLUS #### [facility] [address] [place] [address] Protein (U) [Mass/Vol] 30 mg/dL High Negative [facility] Comment on above: Order Comment: Name Collection Type:: Chou Catheter Performed By: #### C UU, ADDONUAPLUS #### [address] RBC,Urine 50-100 High 0-4 [facility] Comment on above: Order Comment: Name Collection Type:: Chou Catheter Performed By: #### C UU, ADDONUAPLUS #### [address] Specificy [place],Urine 1.012 Normal 1.001-1.03 0 [facility] Comment on above: Order Comment: Name Collection Type:: Chou Catheter Performed By: #### C UU, ADDONUAPLUS #### [address] Squamous Epithelial Cell,Urine 0-1 Normal 0-2 [facility] Comment on above: Order Comment: Name Collection Type:: Chou Catheter Performed By: #### C UU, ADDONUAPLUS #### [address] Urobilinogen,Urine Normal Normal Normal [facility] Comment on above: Order Comment: Name Collection Type:: Chou Catheter Performed By: #### C UU, ADDONUAPLUS #### [address] WBC,Urine 5-9 High 0-4 [facility] Comment on above: Order Comment: Name Collection Type:: Chou Catheter Performed By: #### C UU, ADDONUAPLUS #### [address] Ketones Auto test strip (U) [Mass/Vol]Ordered By: Victor Manuel Reynolds on 01-13-2022 Ketones (U) [Mass/Vol] Negative Negative [facility] Laboratory - UrinalysisOrder ed By: Victor Manuel Reynolds on 01-13-2022 Hyaline casts LM Ql (Urine sed) 0-8 [LPF] 0-8 [facility] MR lumbar spine wo/w conon 1 03-15-2021 MR lumbar spine wo/w con [facility] Main [place] [address] [place] [id number] MRI Report Signed Patient: Irineo Wallis Jr MR#: [id number] : 1940 Acct:[id number] Age/Sex: 81 / M ADM Date: 01/09/22 Loc: Room: [address] [place] [address] Type: ADM IN Attending Dr: Raji Ennis MD Copies to: DO Raji Pollock MD Ordering Provider: Vikas Mane DO Date of Service: 01/12/22 MR/MR lumbar spine wo/w con: leg weakness, lumbar spinal mass MRI lumbar spine , with and withoutcontrast TECHNIQUE: Multiplanar T1 and T2-weighted imaging of lumbar spine obtained without contrast.20 cc of ProHance HISTORY:Fell. Low back pain. 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 Bilateral leg weakness COMPARISON:CT of the lumbar spine done 01/09/22 There is marked motion artifact degrading imaging. Lumbar lordosis is adequate. There is similar mild L4-5 anterolisthesis. Lower lumbar laminectomy changes redemonstrated. No lumbar spine fracture is identified. No hydronephrosis is identified. No aortic aneurysm is seen. The distal spinal cord is in adequate position without abnormality.No pathologic enhancement or enhancing mass identified. T11-12 level is unremarkable. T12-L1 level is unremarkable. L1-2:Moderate spondylosis. Diffuse disc bulge and osteophyte complex. Patent central canal. Patent neural foramen. L2-3: Moderate spondylosis. Mild retrolisthesis. Patent central canal. Moderate bilateral neural foraminal narrowing. L3-4:Advanced spondylosis. Disc and osteophyte complex with resultant concavity of the anterior thecal sac. Mild central canal stenosis. Facet ligamentum flavum hypertrophy. The marked bilateral neural foraminal narrowing. L4-5:Advanced spondylosis. Mild anterolisthesis. A diffuse disc bulge and osteophyte complex. Facet ligamentum flavum hypertrophy. Moderate central canal stenosis. Moderate bilateral neural foraminal narrowing. L5-S1:Mild spondylosis. No disc herniation. Patent central canal and neural foramen. MR/MR lumbar spine wo/w con IMPRESSION:Multilevel discovertebral degenerative changes. Mild to moderate canal stenosis as above. No foraminal narrowing as above. Impression dictated by: Esa Cardoso M.D.01/13/2022 12:12 PM Dictation Location: [place] [address] Transcribed By: [facility] 01/13/22 1212 Dictated By: Esa Cardoso DO 01/13/22 1205 Signed By: 01/13/22 1212 Normal [facility] Nitrite Test strip Ql (U)Ord ered By: Victor Manuel Reynolds on 01-13-2022 Nitrite Ql (U) Negative Negative [facility] Protein Auto test strip (U) [Mass/Vol]Ordered By: Victor Manuel Reynolds on 01-13-2022 Protein (U) [Mass/Vol] 30 mg/dL Negative [facility] Serum or plasma uric acid me asurement (mass/volume)Ordered By: Victor Manuel Reynolds on 01-13-2022 Urate [Mass/Vol] 4.7 mg/dL 2.6-7.2 [facility] Serum or plasma vancomycin m easurement (mass/volume)Ordered By: Raji Ennis on 01-13-2022 Vancomycin [Mass/Vol] 9.7 ug/mL 5.0-20.0 [facility] Comment on above: Last dose: - Specific gravity Auto test s trip (U) [Rel density]Ordered By: Victor Manuel Reynolds on 01-13-2022 Specific gravity (U) [Rel density] 1.012 1.001-1.03 0 [facility] Squamous epithelial cells de tection in urine sediment by light microscopyOrdered By: Victor Manuel Reynolds on 01-13-2022 Epithelial cells.squamous LM Ql (Urine sed) 0-1 [HPF] 0-2 [facility] Uric Acidon 01-13-2022 Urate [Mass/Vol] 4.7 mg/dL Normal 2.6-7.2 [facility] Comment on above: Result Comment: PERF ORMED BY: [facility] [address] [place] [address] PATHOLOGIST DRY WALL PLASTERER JAYY SANTA M.D. Performed By: #### U FIONA #### [facility] [address] [place] [address] [place] Urine Cultureon 01-13-2022 Bacteria identified Cx Nom (U) No Growth 2 Days PERFORMED BY: [place] [address] PATHOLOGIST DRY WALL PLASTERER JAYY SANTA M.D. Normal [facility] Comment on above: Performed By: #### C UU, ADDONUAPLUS #### [facility] [address] [place], [place] [id number] [facility] Urine bacteria detection by automated methodOrdered By: Victor Manuel Reynolds on 01-13-2022 Bacteria Auto Ql (U) None seen None Seen [facility] Urine clarity by refractomet ry automatedOrdered By: Victor Manuel Reynolds on 01-13-2022 Clarity Refractometry automated (U) Clear Clear [facility] Urine culture routineOrdered By: Victor Manuel Reynolds on 01-13-2022 Bacteria identified Cx Nom (U) No Growth 2 Days [facility] Urine glucose measurement by automated test strip (mass/volume)Ordered By: Victor Manuel Reynolds on 01-13-2022 Glucose Auto test strip (U) [Mass/Vol] Normal mg/dL Normal [facility] Urine hemoglobin detection b y automated test stripOrdered By: Victor Manuel Reynolds on 01-13-2022 Hemoglobin Auto test strip Ql (U) 3+ Negative [facility] Urine leukocyte esterase det ection by automated test stripOrdered By: Victor Manuel Reynolds on 01-13-2022 Leukocyte esterase Auto test strip Ql (U) 2+ Negative [facility] Urobilinogen Auto test strip (U) [Mass/Vol]Ordered By: Victor Manuel Reynolds on 01-13-2022 Urobilinogen (U) [Mass/Vol] Normal mg/dL Normal [facility] Vancomycin,Randomon 01-14-20 Vancomycin,Random 9.7 ug/mL Normal 5.0-20.0 [facility] Comment on above: Order Comment: Date of last dose?: 20220112 Time of last dose?: 1530 Result Comment: Last dose: - PERFORMED BY: [place] [address] PATHOLOGIST DRY WALL PLASTERER JAYY SANTA M.D. Performed By: #### C OVID-19 MARS, SOFIANEG #### [facility] [address] [place] [address] [place] pH Auto test strip (U)Ordere d By: Victor Manuel Reynolds on 01-13-2022 pH (U) 5.5 [pH] 5.0-9.0 [facility] Bacterial blood cultureOrder ed By: Raji Ennis on 01-12-2022 Bacteria identified Cx Nom (Bld) NO GROWTH 5 DAYS [facility] Basic Metabolic Panelon 11-0 Anion gap [Moles/Vol] 10.4 mmol/L Normal 6.0-15.[address] [facility] Comment on above: Performed By: #### C BC, BMP #### [facility] [address] Calcium [Mass/Vol] 8.9 mg/dL Normal 8.2-10.[address] [facility] Comment on above: Performed By: #### C BC, BMP #### [facility] [address] [place] [address] [place] Chloride [Moles/Vol] 94 mmol/L Low 95-114 [facility] Comment on above: Performed By: #### C BC, BMP #### [facility] [address] [place] [id number] [place] CO2 [Moles/Vol] 31.4 mmol/L High 22.0-30.0 [facility] Comment on above: Performed By: #### C BC, BMP #### [facility] [address] [place] [id number] [place] Creatinine [Mass/Vol] 1.53 mg/dL High 0.64-1.27 [facility] Comment on above: Performed By: #### C BC, BMP #### [facility] [address] [place] [id number] [place] Creatinine Clr Calc Pharmacy 40.96 Normal [facility] Comment on above: Result Comment: PERF ORMED BY: [place] [address] PATHOLOGIST DRY WALL PLASTERER JAYY SANTA M.D. Performed By: #### C BC, BMP #### [address] Estimated GFR ( Amarilis 53 [facility] Comment on above: Result Comment: GFR estimated reference range: According to KDOQI guidelines, <60 ml/min/1.73m2 is sufficient to diagnose a patient with chronic kidney disease. Performed By: #### C BC, BMP #### [place] [address] [place] Estimated GFR (Non- Am 44 [facility] Comment on above: Performed By: #### C BC, BMP #### [address] Glucose [Mass/Vol] 99 mg/dL Normal 70-[address] [facility] Comment on above: Result Comment: [place] Glucose Reference Range is dependent on time and content of last meal. Glucose of more than 200 mg/dL in a nonstressed, ambulatory subject supports the diagnosis of Diabetes Mellitus. ADA recommended reference range Performed By: #### C BC, BMP #### [address] Potassium [Moles/Vol] 3.8 mmol/L Normal 3.5-5.1 [facility] Comment on above: Performed By: #### C BC, BMP #### [place] [address] [place] Sodium [Moles/Vol] 132 mmol/L Low 136-[address] [facility] Comment on above: Performed By: #### C BC, BMP #### [address] Urea nitrogen [Mass/Vol] 22 mg/dL Normal 9-23 [facility] Comment on above: Performed By: #### C BC, BMP #### [address] Blood Cultureon 01-12-2022 Bacteria identified Cx Nom (Bld) NO GROWTH 5 DAYS PERFORMED BY: [place] [address] PATHOLOGIST DRY WALL PLASTERER JAYY SANTA M.D. [facility] Comment on above: Performed By: #### C BC, BMP #### [facility] [address] [place] [address] Bacteria identified Cx Nom (Bld) NO GROWTH 5 DAYS PERFORMED BY: [place] [address] PATHOLOGIST DRY WALL PLASTERER JAYY SANTA M.D. [facility] Comment on above: Performed By: #### C BC, BMP #### [address] C reactive protein [Mass/vol ume] in Serum or PlasmaOrdered By: Raji Ennis on 01-12-2022 CRP [Mass/Vol] 8.4 mg/dL 0.0-1.0 [facility] C-Reactive Proteinon 022 C-Reactive Protein 8.4 mg/dL High 0.0-1.[address] [facility] Comment on above: Order Comment: [place] nt can use prior labs if possible Result Comment: PERF ORMED BY: [place] [address] PATHOLOGIST DRY WALL PLASTERER JAYY SANTA M.D. Performed By: #### C BC, BMP #### [address] Complete Blood Count Auto Di ffon 01-12-2022 Basophils (Bld) [#/Vol] 0.1 10*3/uL Normal 0.0-0.2 [facility] Comment on above: Result Comment: PERF ORMED BY: [place] [address] PATHOLOGIST DRY WALL PLASTERER JAYY SANTA M.D. Performed By: #### C BC, BMP #### [facility] [address] [place] [address] [place] Basophils/100 WBC (Bld) 0.5 % Normal . [facility] Comment on above: Performed By: #### C BC, BMP #### [address] [place] [address] [place] Eosinophils (Bld) [#/Vol] 0.2 10*3/uL Normal 0.0-0.45 [facility] Comment on above: Performed By: #### C BC, BMP #### [facility] [address] Eosinophils/100 WBC (Bld) 1.9 % Normal . [facility] Comment on above: Performed By: #### C BC, BMP #### [address] Erythrocyte distribution width (RBC) [Ratio] 15.5 % High 12.0-14.8 [facility] Comment on above: Performed By: #### C BC, BMP #### [address] Hematocrit (Bld) [Volume fraction] 38.8 % Normal 38.8-50.0 [facility] Comment on above: Performed By: #### C BC, BMP #### [address] Hemoglobin (Bld) [Mass/Vol] 12.9 g/dL Low 13.0-17.0 [facility] Comment on above: Performed By: #### C BC, BMP #### [address] Lymphocytes (Bld) [#/Vol] 1.2 10*3/uL Normal 1.00-4.8 [facility] Comment on above: Performed By: #### C BC, BMP #### [address] Lymphocytes/100 WBC (Bld) 12.2 % Normal . [facility] Comment on above: Performed By: #### C BC, BMP #### [address] MCH (RBC) [Entitic mass] 33.6 pg Normal 27.5-35.2 [facility] Comment on above: Performed By: #### C BC, BMP #### [place] [id number] [place] MCV (RBC) [Entitic vol] 100.8 fL Normal 83.5-101 [facility] Comment on above: Performed By: #### C BC, BMP #### [address] Mean Corpuscular HGB Conc 33.3 g/dL Normal 32.5-35.6 [facility] Comment on above: Performed By: #### C BC, BMP #### [address] Monocytes (Bld) [#/Vol] 0.9 10*3/uL High 0.0-0.8 [facility] Comment on above: Performed By: #### C KARTIK, BMP #### [address] Monocytes/100 WBC (Bld) 9.1 % Normal . [facility] Comment on above: Performed By: #### C KARTIK, BMP #### [address] Neutrophils (Bld) [#/Vol] 7.7 10*3/uL Normal 1.8-7.7 [facility] Comment on above: Performed By: #### C KARTIK, BMP #### [address] Neutrophils/100 WBC (Bld) 76.3 % Normal . [facility] Comment on above: Performed By: #### C KARTIK, BMP #### [address] Nucleated RBC/100 WBC (Bld) [Ratio] 0.1 % Normal 0-0.5 [facility] Comment on above: Performed By: #### C BC, BMP #### [address] Platelet mean volume (Bld) [Entitic vol] 8.8 fL Normal 6.6-10.1 [facility] Comment on above: Performed By: #### C BC, BMP #### [address] Platelets (Bld) [#/Vol] 214 10*3/uL Normal 150-450 [facility] Comment on above: Performed By: #### C KARTIK, BMP #### [address] RBC (Bld) [#/Vol] 3.85 10*6/uL Low 3.90-5.60 [facility] Comment on above: Performed By: #### C KARTIK, BMP #### [address] WBC (Bld) [#/Vol] 10.1 10*3/uL Normal 4.5-11.0 [facility] Comment on above: Performed By: #### C KARTIK, BMP #### [address] XR chest 1V portableon 01-12 XR chest 1V portable [facility] Main [place] [address] [place] [address] XRay Report Signed Patient: Irineo Wallis Jr MR#: [id number] : 1940 Acct:[id number] Age/Sex: 81 / M ADM Date: 01/09/22 Loc: Room: [address] [place] [address] Type: ADM IN Attending Dr: Raji Ennis MD Copies to: Raji Ennis MD Ordering Provider: Raji Ennis MD Date of Service: 01/12/22 XR/XR chest 1V portable: fever Plain film chestsingle view HISTORY:Fever and weakness. COMPARISON:01/09/22 FINDINGS: Cardiac, mediastinal and hilar silhouettes are stable. Marked improvement of diffuse parenchymal groundglass densities identified. Residual mild basilar pleural-parenchymal changes noted. No pneumothorax. Bony structures are intact. XR/XR chest 1V portable IMPRESSION: Marked improvement of diffuse groundglass parenchymal densities likely representing decreased pulmonary edema. Minimal residual basilar pleural-parenchymal densities. Unchanged cardiomegaly. Impression dictated by: Esa Cardoso M.D.01/12/2022 12:47 PM Dictation Location: [place] [address] Transcribed By: NOLVIA 01/12/22 124 Dictated By: Esa Cardoso DO 01/12/22 1245 Signed By: 01/12/22 1247 [facility] Albumin [Mass/volume] in Ser um or PlasmaOrdered By: Vikas Mane on 01-11-2022 Albumin [Mass/Vol] 2.9 g/dL 2.9-4.[address] [facility] Basic Metabolic Panelon Anion gap [Moles/Vol] 10.6 mmol/L Normal 6.0-15.[address] [facility] Comment on above: Performed By: #### C OVID-19 MARS, SOFIANEG #### [facility] [address] Calcium [Mass/Vol] 8.7 mg/dL Normal 8.2-10.[address] [facility] Comment on above: Performed By: #### C OVID-19 MARS, SOFIANEG #### [facility] [address] Chloride [Moles/Vol] 98 mmol/L Normal 95-114 [facility] Comment on above: Performed By: #### C OVID-19 MARS, SOFIANEG #### [facility] [address] CO2 [Moles/Vol] 28.8 mmol/L Normal 22.0-30.0 [facility] Comment on above: Performed By: #### C OVID-19 MARS, SOFIANEG #### [facility] [address] [place] [address] Creatinine [Mass/Vol] 1.49 mg/dL High 0.64-1.27 [facility] Comment on above: Performed By: #### C OVID-19 MARS, SOFIANEG #### [facility] [address] [place] [address] [place] Creatinine Clr Calc Pharmacy 42.37 [facility] Comment on above: Result Comment: PERF ORMED BY: [place] [address] PATHOLOGIST DRY WALL PLASTERER JAYY SANTA M.D. Performed By: #### C OVID-19 MARS, SOFIANEG #### [facility] [address] Estimated GFR ( Amarilis 55 [facility] Comment on above: Result Comment: GFR estimated reference range: According to KDOQI guidelines, <60 ml/min/1.73m2 is sufficient to diagnose a patient with chronic kidney disease. Performed By: #### C OVID-19 MASR, SOFIANEG #### [facility] [address] Estimated GFR (Non- Am 45 [facility] Comment on above: Performed By: #### C OVID-19 MARS, SOFIANEG #### [address] Glucose [Mass/Vol] 90 mg/dL Normal 70-[address] [facility] Comment on above: Result Comment: [place] Glucose Reference Range is dependent on time and content of last meal. Glucose of more than 200 mg/dL in a nonstressed, ambulatory subject supports the diagnosis of Diabetes Mellitus. ADA recommended reference range Performed By: #### C OVID-19 MARS, SOFIANEG #### [address] Potassium [Moles/Vol] 3.4 mmol/L Low 3.5-5.1 [facility] Comment on above: Performed By: #### C OVID-19 MARS, SOFIANEG #### [place] [address] [place] Sodium [Moles/Vol] 134 mmol/L Low 136-[address] [facility] Comment on above: Performed By: #### C OVID-19 MARS, SOFIANEG #### [address] Urea nitrogen [Mass/Vol] 24 mg/dL High 9-23 [facility] Comment on above: Performed By: #### C OVID-19 MARS, SOFIANEG #### [address] Complete Blood Count Auto Di ffon 01-11-2022 Basophils (Bld) [#/Vol] 0.1 10*3/uL Normal 0.0-0.2 [facility] Comment on above: Result Comment: PERF ORMED BY: [place] [address] PATHOLOGIST DRY WALL PLASTERER JAYY SANTA M.D. Performed By: #### C BC, BMP #### [address] Basophils/100 WBC (Bld) 0.7 % Normal . [facility] Comment on above: Performed By: #### C BC, BMP #### [address] Eosinophils (Bld) [#/Vol] 0.2 10*3/uL Normal 0.0-0.45 [facility] Comment on above: Performed By: #### C BC, BMP #### [address] Eosinophils/100 WBC (Bld) 2.2 % Normal . [facility] Comment on above: Performed By: #### C BC, BMP #### [address] Erythrocyte distribution width (RBC) [Ratio] 15.5 % High 12.0-14.8 [facility] Comment on above: Performed By: #### C BC, BMP #### [address] Hematocrit (Bld) [Volume fraction] 38.1 % Low 38.8-50.0 [facility] Comment on above: Performed By: #### C BC, BMP #### [address] Hemoglobin (Bld) [Mass/Vol] 12.7 g/dL Low 13.0-17.0 [facility] Comment on above: Performed By: #### C BC, BMP #### [place] [address] [place] Lymphocytes (Bld) [#/Vol] 1.2 10*3/uL Normal 1.00-4.8 [facility] Comment on above: Performed By: #### C BC, BMP #### [facility] [address] Lymphocytes/100 WBC (Bld) 13.7 % Normal . [facility] Comment on above: Performed By: #### C BC, BMP #### [facility] [address] MCH (RBC) [Entitic mass] 33.4 pg Normal 27.5-35.2 [facility] Comment on above: Performed By: #### C BC, BMP #### [facility] [address] MCV (RBC) [Entitic vol] 100.6 fL Normal 83.5-101 [facility] Comment on above: Performed By: #### C BC, BMP #### [address] Mean Corpuscular HGB Conc 33.3 g/dL Normal 32.5-35.6 [facility] Comment on above: Performed By: #### C BC, BMP #### [facility] [address] [place] [address] [place] Monocytes (Bld) [#/Vol] 0.8 10*3/uL Normal 0.0-0.8 [facility] Comment on above: Performed By: #### C BC, BMP #### [facility] [address] [place] [address] [place] Monocytes/100 WBC (Bld) 9.6 % Normal . [facility] Comment on above: Performed By: #### C BC, BMP #### [facility] [address] [place] [address] [place] Neutrophils (Bld) [#/Vol] 6.3 10*3/uL Normal 1.8-7.7 [facility] Comment on above: Performed By: #### C BC, BMP #### [facility] [address] [place] [address] [place] Neutrophils/100 WBC (Bld) 73.8 % Normal . [facility] Comment on above: Performed By: #### C BC, BMP #### [facility] [address] Nucleated RBC/100 WBC (Bld) [Ratio] 0.0 % Normal 0-0.5 [facility] Comment on above: Performed By: #### C BC, BMP #### [facility] [address] Platelet mean volume (Bld) [Entitic vol] 8.8 fL Normal 6.6-10.1 [facility] Comment on above: Performed By: #### C BC, BMP #### [facility] [address] Platelets (Bld) [#/Vol] 177 10*3/uL Normal 150-450 [facility] Comment on above: Performed By: #### C BC, BMP #### [facility] [address] RBC (Bld) [#/Vol] 3.78 10*6/uL Low 3.90-5.60 [facility] Comment on above: Performed By: #### C BC, BMP #### [facility] [address] WBC (Bld) [#/Vol] 8.5 10*3/uL Normal 4.5-11.[address] [facility] Comment on above: Performed By: #### C BC, BMP #### [address] [facility] echo transthoracicon [facility] echo transthoracic [facility] Main [place] [address] [place] [address] Echocardiogram Signed Patient: Irineo Wallis Jr MR#: [id number] : 1940 Acct:[id number] Age/Sex: 81 / M ADM Date: 01/09/22 Loc: Room: [address] [place] [address] Type: DIS IN Attending Dr: Raji Ennis MD Ordering Provider: Dharmesh Zavala DO Date of Service: 01/10/2208/26/499 [facility] echo transthoracic: dyspnea, pleural effusion Copies to: DO Robert Maravilla MD Height: 65.5 in Weight: 207 lb Performed By: Tiffanie Hernandez RDCS BSA: 2.0 m2 BP: 101/62 mmHg HR: 73 Reason For Study: dyspnea, pleural effusion History: Afib, CHF, family history of CAD, former smoker Interpretation Summary The left ventricular wall motion is normal. Mild to moderate concentric left ventricular hypertrophy. Ejection Fraction = 60-65%. The left atrium appears moderately dilated. The right atrium is moderately dilated. The right ventricle is moderately dilated. There is trace mitral regurgitation. There is mild tricuspid regurgitation. The right ventricular systolic pressure is 45 mmHg. Right ventricular systolic pressure is consistent with mild to moderate pulmonary hypertension. Trivial pericardial effusion. Compared to prior study, changes are noted. LVEF has improved. Procedure/Quality: A two-dimensional transthoracic echocardiogram with color flow and Doppler was performed. The study was technically good in quality. Left Ventricle: The left ventricular size is normal. Mild to moderate concentric left ventricular hypertrophy. Ejection Fraction = 60-65%. The left ventricular wall motion is normal. Left Atrium: The left atrium appears moderately dilated. Right Atrium: The right atrium is moderately dilated. Right Ventricle: The right ventricle is moderately dilated. Aortic Valve: The aortic valve is normal in structure and function. No aortic regurgitation is present. Mitral Valve: The mitral valve is normal in structure and function. There is trace mitral regurgitation. Tricuspid Valve: The tricuspid valve is normal in structure and function. There is mild tricuspid regurgitation. The right ventricular systolic pressure is 45 mmHg. Right ventricular systolic pressure is consistent with mild to moderate pulmonary hypertension. Pulmonic Valve: The pulmonic valve is normal in structure and function. Arteries: The aortic root is normal size. Pericardium/Pleura: Trivial pericardial effusion. There is no pleural effusion. IVC/Hepatic Viens: The inferior vena cava is normal in size, with a normal collapsibility index. Miscellaneous: The patient was in atrial fibrillation through out the study. Measurements with Normals IVSd: 1.7 cm (0.7-1.1 cm)LVIDd: 3.9 cm (3.7-5.4 cm) LVPWd: 1.4 cm (0.7-1.1 cm)LVIDs: 2.6 cm (2.3-3.6 cm) LA dimension: 5.5 cm (2.3-4.0 cm)Ao root diam: 3.8 cm(2.0-3.6 cm) asc Aorta Diam: 3.6 cm(2.1-3.4cm) Doppler with Normals RVSP(TR): 44.3 mmHg (18-35mmHg) LV V1 max: 101.4 cm/sec(0.7-1.7m/s)MV E max eliezer: 111.0 cm/sec(0.8-1.3m/s) MMode/2D Measurements Calculations RVDd: 4.0 cm RV Base: 4.7 cm FS: 33.2 % Ao root area: TAPSE: 2.1 cm RV Mid: 4.8 cm EDV(Teich): 64.8 ml 11.4 cm2 RV S Eliezer: RV Length: 7.2 cm ESV(Teich): 24.3 ml 14.0 cm/sec EF(Teich): 62.4 % __ LVOT diam: 2.4 cm LVLd ap4: 7.9 cm SV(MOD-sp4): 78.6 ml LAV(MOD-sp4): LVOT area: 4.6 cm2 EDV(MOD-sp4): 83.6 ml 117.0 ml LAV(MOD-sp2): LVLs ap4: 7.3 cm 71.7 ml ESV(MOD-sp4): 38.4 ml EF(MOD-sp4): 67.2 % __ LA A2 area: 24.3 cm2RA Volume: RA Volume Index: LA A4 area: 26.4 cm271.0 ml 35.1 ml/m2 LA length (vol): 6.9 cm LA vol: 78.7 ml LA vol index: 38.9 ml/m2 Doppler Measurements Calculations MV dec time: E/E' lat: 10.5 MV dec slope: Ao V2 max: 0.19 sec E/E' med: 14.0 584.2 cm/sec2 153.1 cm/sec Ao max P.4 mmHg Ao mean P.5 mmHg Ao V2 mean: 114.0 cm/sec Ao V2 VTI: 28.1 cm LONI(I,D): 2.6 cm2 LONI(V,D): 3.0 cm2 __ LV V1 max PG: TV max PG: TR max eliezer: 4.1 mmHg 39.0 mmHg 313.6 cm/sec LV V1 mean PG: TR max P.3 mmHg 2.2 mmHg RAP systole: 5.0 mmHg LV V1 mean: 70.2 cm/sec LV V1 VTI: 16.1 cm Transcribed By: SCV Performed At: 01/11/22 0754 Signed By: Robert Thorne MD 01/11/22 0982 Normal [facility] IgA [Mass/volume] in Serum o r PlasmaOrdered By: Vikas Mane on 01-11-2022 IgA [Mass/Vol] 171 mg/dL 61-437 [facility] IgG [Mass/volume] in Serum o r PlasmaOrdered By: Vikas Mane on 01-11-2022 IgG [Mass/Vol] 816 mg/dL 603-1613 [facility] IgM [Mass/volume] in Serum o r PlasmaOrdered By: Vikas Mane on 01-11-2022 IgM [Mass/Vol] 105 mg/dL 15-143 [facility] Comment on above: Performed at: - [address] [id number] Director: Patrick Ortiz PhD, Phone: [phone] Immunofixation,Serumon 01-11 Immunofixation, Serum Normal . [facility] Comment on above: Result Comment: No m onoclonality detected. Performed By: #### B MP, CBC #### [facility] [address] [place] [address] Immunoglobulin A, Serum 171 mg/dL Normal 61-437 [facility] Comment on above: Performed By: #### B MP, CBC #### [facility] [address] Immunoglobulin G 816 mg/dL Normal 603-1613 [facility] Comment on above: Performed By: #### B MP, CBC #### [facility] [address] Immunoglobulin M, Serum 105 mg/dL Normal 15-143 [facility] Comment on above: Result Comment: Perf ormed at: - [facility] [address] [place] [address] [employer]: Patrick Ortiz PhD, Phone: [phone] Performed By: #### B MP, CBC #### [address] No Panel InformationOrdered By: Vikas Mane on 01-11-2022 Protein Electrophoresis M-Franky Not observed g/dL Not Observed [facility] Protein Electrophoresis Note See comment . [facility] Comment on above: Protein electrophore sis scan will follow via computer,mail, or chicken cleaner delivery.Performed at: [facility] [place] [address] Director: Patrick Ortiz PhD, Phone: [phone] Serum Immunofixation See comment . [facility] Comment on above: No monoclonality det ected. Protein Electrophoresis, Ser umon 01-11-2022 Albumin [Mass/Vol] 2.9 g/dL Normal 2.9-4.[address] [facility] Comment on above: Performed By: #### B MP, CBC #### [facility] [address] [place] [address] [place] Albumin/Globulin [Mass ratio] 1.2 {ratio} Normal 0.7-1.7 [facility] Comment on above: Performed By: #### B MP, CBC #### [facility] [address] Ijrri-5-Cfcginow 0.4 g/dL Normal 0.0-0.4 [facility] Comment on above: Performed By: #### B MP, CBC #### [address] Xggdo-6-Bkphmoxa 0.7 g/dL Normal 0.4-1.0 [facility] Comment on above: Performed By: #### B MP, CBC #### [address] Beta Globulin 0.6 g/dL Low 0.7-1.3 [facility] Comment on above: Performed By: #### B MP, CBC #### [address] Gamma Globulin 0.8 g/dL Normal 0.4-1.8 [facility] Comment on above: Performed By: #### B MP, CBC #### [address] Globulin (S) [Mass/Vol] 2.4 g/dL Normal 2.2-3.9 [facility] Comment on above: Performed By: #### B MP, CBC #### [address] M-Franky Not Observed Normal Not Observed [facility] Comment on above: Performed By: #### B MP, CBC #### [address] Protein [Mass/Vol] 5.3 g/dL Low 6.0-8.[address] [facility] Comment on above: Performed By: #### B MP, CBC #### [address] SPE-Note Normal . [facility] Comment on above: Result Comment: Prot ein electrophoresis scan will follow via computer, mail, or chicken cleaner delivery. Performed at: - [facility] [id number] [employer]: Patrick Ortiz PhD, Phone: [phone] PERFORMED BY: [place] [address] PATHOLOGIST DRY WALL PLASTERER JAYY SANTA M.D. Performed By: #### B MP, CBC #### [facility] [address] Protein [Mass/volume] in Ser um or PlasmaOrdered By: Vikas Mane on 01-11-2022 Protein [Mass/Vol] 5.3 g/dL 6.0-8.[address] [facility] Serum globulin measurement ( mass/volume)Ordered By: Vikas Mane on 01-11-2022 Globulin (S) [Mass/Vol] 2.4 g/dL 2.2-3.9 [facility] Serum or plasma albumin/glob ulin mass ratioOrdered By: Vikas Mane on 01-11-2022 Albumin/Globulin [Mass ratio] 1.2 {ratio} 0.7-1.7 [facility] Serum or plasma alpha 1 glob ulin measurement by electrophoresis (mass/volume)Ordered By: Vikas Mane on 01-11-2022 Alpha 1 globulin Elph [Mass/Vol] 0.4 g/dL 0.0-0.4 [facility] Serum or plasma alpha 2 glob ulin measurement by electrophoresis (mass/volume)Ordered By: Vikas Mane on 01-11-2022 Alpha 2 globulin Elph [Mass/Vol] 0.7 g/dL 0.4-1.0 [facility] Serum or plasma beta globuli n measurement by electrophoresis (mass/volume)Ordered By: Vikas Mane on 01-11-2022 Beta globulin Elph [Mass/Vol] 0.6 g/dL 0.7-1.3 [facility] Serum or plasma gamma globul in measurement by electrophoresis (mass/volume)Ordered By: Vikas Mane on 01-11-2022 Gamma globulin Elph [Mass/Vol] 0.8 g/dL 0.4-1.8 [facility] US carotid doppler BIon US carotid doppler BI [facility] Main [place] [address] [place] [address] Ultrasound Report Signed Patient: Irineo Wallis Jr MR#: [id number] : 1940 Acct:[id number] Age/Sex: 81 / M ADM Date: 01/09/22 Loc: Room: [address] [place] [address] Type: ADM IN Attending Dr: Dharmesh Zavala DO Ordering Provider: Dharmesh Zavala DO Date of Service: 01/10/22 US/US carotid doppler BI: dizziness Copies to: Dharmesh Zavala DO CAROTID DUPLEX INDICATION: Generalized weakness, dizziness, imbalance, hypertension PROCEDURE: Color-flow duplex scanning is used to interrogate the extracranial carotid arterial system, as well as both vertebral arteries. The proximal right internal carotid artery shows a highest peak systolic velocity of 72.5 cm/s with an end-diastolic velocity of 21.6 cm/s . The mid internal carotid artery measures 72.5 cm/s peak systolic with an end-diastolic velocity of 23.9 cm/s . The distal segment measures 67.7 cm/s peak systolic with an end diastolic velocity of 17.8 cm/s . The velocities of the right common carotid artery are 83.9 cm/s peak systolic and 20.5 cm/s end- diastolic proximally and 67.4 cm/s peak systolic and 20 cm/s end-diastolic distally. The peak systolic velocity ratio of the internal to the common carotid artery is 1.08 . The right external carotid artery measures 121 cm/s peak systolic. The right vertebral artery is patent at 43.3 cm/s peak systolic and with antegrade flow. The proximal left internal carotid artery shows a highest peak systolic velocity of 60.6 cm/s with an end-diastolic velocity of 17.6 cm/s . The mid internal carotid artery measures 77.5 cm/s peak systolic with an end-diastolic velocity of 26.1 cm/s . The distal segment measures 82.6 cm/s peak systolic with an end diastolic velocity of 30.3 cm/s . The velocities of the left common carotid artery are 90.8 cm/s peak systolic and 23.6 cm/s end-diastolic proximally and 90.4 cm/s peak systolic and 21.6 cm/s end-diastolic distally. The peak systolic velocity ratio of the internal to the common carotid artery is 0.91 . The left external carotid artery measures 111 cm/s peak systolic. The left vertebral artery is patent at 26.8 cm/s peak systolic with antegrade flow. US/US carotid doppler BI IMPRESSION: NO HEMODYNAMICALLY SIGNIFICANT STENOSIS OF EITHER EXTRACRANIAL INTERNAL CAROTID ARTERY. BOTH VERTEBRAL ARTERIES ARE PATENT WITH ANTEGRADE FLOW. Impression dictated by: Deo Jamison MD01/11/2022 10:29 AM Dictation Location: [facility]- Tech: Criss Avery Transcribed By: NOLVIA 01/11/22 1029 Dictated By: Deo Jamison MD 01/11/22 1029 Signed By: 01/11/22 1029 Normal [facility] A1C with Estimated Average Reece malloy 01-10-2022 Glucose [Mass/Vol] 114 mg/dL Normal [facility] Comment on above: Result Comment: PERF ORMED BY: [place] [address] PATHOLOGIST DRY WALL PLASTERER JYAY SANTA M.D. Performed By: #### C BC, BMP #### [facility] [address] [place] [address] HbA1c (Bld) [Mass fraction] 5.6 % Normal 4.3-5.6 [facility] Comment on above: Result Comment: Incr eased risk for diabetes: 5.7 - 6.4 diabetes: >6.4 glycemic control for adults with diabetes: <7.0 Performed By: #### C BC, BMP #### [facility] [address] [place], [place] [address] [facility] B-Type Natriuretic Peptideon 01-10-2022 Natriuretic peptide B (Bld) [Mass/Vol] 679.0 pg/mL High 5-100 [facility] Comment on above: Result Comment: PERF ORMED BY: [place] [address] PATHOLOGIST DRY WALL PLASTERER JAYY SANTA M.D. Performed By: #### B MP, CBC #### [facility] [address] [place], [place] [address] [facility] Basic Metabolic Panelon Anion gap [Moles/Vol] 12.1 mmol/L Normal 6.0-15.[address] [facility] Comment on above: Performed By: #### C BC, BMP #### [facility] [address] [place], [place] [address] [place] Calcium [Mass/Vol] 8.6 mg/dL Normal 8.2-10.[address] [facility] Comment on above: Performed By: #### C BC, BMP #### [facility] [address] Chloride [Moles/Vol] 99 mmol/L Normal 95-114 [facility] Comment on above: Performed By: #### C BC, BMP #### [facility] [address] [place] [id number] [facility] CO2 [Moles/Vol] 26.7 mmol/L Normal 22.0-30.0 [facility] Comment on above: Performed By: #### C BC, BMP #### [facility] [address] Creatinine [Mass/Vol] 1.60 mg/dL High 0.64-1.27 [facility] Comment on above: Performed By: #### C BC, BMP #### [facility] [address] Creatinine Clr Calc Pharmacy 39.46 [facility] Comment on above: Performed By: #### C BC, BMP #### [facility] [address] Estimated GFR ( Amarilis 51 [facility] Comment on above: Result Comment: GFR estimated reference range: According to KDOQI guidelines, <60 ml/min/1.73m2 is sufficient to diagnose a patient with chronic kidney disease. Performed By: #### C BC, BMP #### [facility] [address] Estimated GFR (Non- Am 42 [facility] Comment on above: Performed By: #### C BC, BMP #### [facility] [address] [address] Glucose [Mass/Vol] 97 mg/dL Normal 70-[address] [facility] Comment on above: Result Comment: [place] Glucose Reference Range is dependent on time and content of last meal. Glucose of more than 200 mg/dL in a nonstressed, ambulatory subject supports the diagnosis of Diabetes Mellitus. ADA recommended reference range Performed By: #### C BC, BMP #### [address] Potassium [Moles/Vol] 3.8 mmol/L Normal 3.5-5.1 [facility] Comment on above: Performed By: #### C BC, BMP #### [address] Sodium [Moles/Vol] 134 mmol/L Low 136-[address] [facility] Comment on above: Performed By: #### C BC, BMP #### [address] Urea nitrogen [Mass/Vol] 23 mg/dL Normal 9-23 [facility] Comment on above: Performed By: #### C BC, BMP #### [address] Complete Blood Count Auto Di ffon 01-10-2022 Basophils (Bld) [#/Vol] 0.1 10*3/uL Normal 0.0-0.2 [facility] Comment on above: Result Comment: PERF ORMED BY: [place] [address] PATHOLOGIST DRY WALL PLASTERER JAYY SANTA M.D. Performed By: #### C BC, BMP #### [address] Basophils/100 WBC (Bld) 1.0 % Normal . [facility] Comment on above: Performed By: #### C BC, BMP #### [place] [address] [place] Eosinophils (Bld) [#/Vol] 0.0 10*3/uL Normal 0.0-0.45 [facility] Comment on above: Performed By: #### C BC, BMP #### [address] Eosinophils/100 WBC (Bld) 0.3 % Normal . [facility] Comment on above: Performed By: #### C BC, BMP #### [place] [id number] [place] Erythrocyte distribution width (RBC) [Ratio] 15.8 % High 12.0-14.8 [facility] Comment on above: Performed By: #### C BC, BMP #### [address] Hematocrit (Bld) [Volume fraction] 37.7 % Low 38.8-50.0 [facility] Comment on above: Performed By: #### C BC, BMP #### [address] Hemoglobin (Bld) [Mass/Vol] 12.5 g/dL Low 13.0-17.0 [facility] Comment on above: Performed By: #### C BC, BMP #### [address] Lymphocytes (Bld) [#/Vol] 1.0 10*3/uL Normal 1.00-4.8 [facility] Comment on above: Performed By: #### C BC, BMP #### [address] Lymphocytes/100 WBC (Bld) 10.5 % Normal . [facility] Comment on above: Performed By: #### C BC, BMP #### [address] MCH (RBC) [Entitic mass] 33.6 pg Normal 27.5-35.2 [facility] Comment on above: Performed By: #### C BC, BMP #### [address] MCV (RBC) [Entitic vol] 101.5 fL High 83.5-101 [facility] Comment on above: Performed By: #### C BC, BMP #### [address] Mean Corpuscular HGB Conc 33.1 g/dL Normal 32.5-35.6 [facility] Comment on above: Performed By: #### C BC, BMP #### [address] Monocytes (Bld) [#/Vol] 1.0 10*3/uL High 0.0-0.8 [facility] Comment on above: Performed By: #### C KARTIK, BMP #### [facility] [address] Monocytes/100 WBC (Bld) 10.7 % Normal . [facility] Comment on above: Performed By: #### C KARTIK, BMP #### [facility] [address] Neutrophils (Bld) [#/Vol] 7.3 10*3/uL Normal 1.8-7.7 [facility] Comment on above: Performed By: #### C KARTIK, BMP #### [address] Neutrophils/100 WBC (Bld) 77.5 % Normal . [facility] Comment on above: Performed By: #### C KARTIK, BMP #### [address] Nucleated RBC/100 WBC (Bld) [Ratio] 0.0 % Normal 0-0.5 [facility] Comment on above: Performed By: #### C KARTIK, BMP #### [address] Platelet mean volume (Bld) [Entitic vol] 8.6 fL Normal 6.6-10.1 [facility] Comment on above: Performed By: #### C KARTIK, BMP #### [facility] [address] Platelets (Bld) [#/Vol] 167 10*3/uL Normal 150-450 [facility] Comment on above: Performed By: #### C KARTIK, BMP #### [facility] [address] RBC (Bld) [#/Vol] 3.71 10*6/uL Low 3.90-5.60 [facility] Comment on above: Performed By: #### C KARTIK, BMP #### [address] WBC (Bld) [#/Vol] 9.5 10*3/uL Normal 4.5-11.[address] [facility] Comment on above: Performed By: #### C BC, ALBERTO #### [address] ECG 12 lead ECGon 01-10-2022 ECG 12 lead ECG [facility] Main [place] [address] [place] [address] Electrocardiograph Report Signed Patient: Irineo Wallis Jr MR#: [id number] : 1940 Acct:[id number] Age/Sex: 81 / M ADM Date: 01/09/22 Loc: Room: [address] [place] [address] Type: DIS IN Attending Dr: Raji Ennis MD Ordering Provider: Dharmesh Zavala DO Date of Service: 01/10/2208/26/499 ECG/ECG 12 lead ECG: A-Fib Copies to: Test Reason : Blood Pressure : / mmHG Vent. Rate : 066 BPM Atrial Rate : 288 BPM P-R Int : 000 ms QRS Dur : 098 ms QT Int : 408 ms P-R-T Axes : 000 -59 098 degrees QTc Int : 427 ms Atrial fibrillation with premature ventricular or aberrantly conducted complexes Left axis deviation Abnormal QRS-T angle, consider primary T wave abnormality Abnormal ECG When compared with ECG of 09-JAN-2022 09:39, Left posterior fascicular block is no longer present Confirmed by RAJENDRA TIDWELL [facility] ([id number] on 01/10/2022 10:31:45 AM Referred By: Electronically Signed By:MARV DREW MD [facility] Transcribed By: MUS Signed By Marv Drew MD, FACC 01/10/22 1031 [facility] Folate [Mass/volume] in Seru m or PlasmaOrdered By: Dharmesh Zavala on 01-10-2022 Folate [Mass/Vol] 8.8 ng/mL >5.9 [facility] Comment on above: Folate reference ran ge: >5.9 ng/mlThe WHO technical consultation on folate and vitamin [id number] has determined that folate concentrations lessthan 4 ng/ml are considered deficient. Glucose mean value [Mass/vol ume] in Blood Estimated from glycated hemoglobinOrdered By: Dharmesh Zavala on 01-10-2022 Average glucose Estimated from glycated hemoglobin (Bld) [Mass/Vol] 114 mg/dL [facility] Hemoglobin A1c percentageOrd ered By: Dharmesh Zavala on 01-10-2022 HbA1c (Bld) [Mass fraction] 5.6 % 4.3-5.6 [facility] Comment on above: Increased risk for d iabetes: 5.7 - 6.4diabetes: >6.4glycemic control for adults with diabetes: <7.0 Ironon 01-10-2022 Iron [Mass/Vol] 13 ug/dL Low 40-160 [facility] Comment on above: Performed By: #### C BC, BMP #### [facility] [address] Iron [Mass/volume] in Serum or PlasmaOrdered By: Dharmesh Zavala on 01-10-2022 Iron [Mass/Vol] 13 ug/dL 40-160 [facility] Laboratory - Chemistry and C hemistry - challengeOrdered By: Dharmesh Zavala on 01-10-2022 Cobalamin (Vitamin B12) [Mass/Vol] 458 pg/mL 180-914 [facility] Magnesium [Mass/Vol] 1.9 mg/dL 1.6-2.6 [facility] Natriuretic peptide B (Bld) [Mass/Vol] 679.0 pg/mL 5-100 [facility] Magnesiumon 01-10-2022 Magnesium [Mass/Vol] 1.9 mg/dL Normal 1.6-2.6 [facility] Comment on above: Performed By: #### C BC, BMP #### [facility] [address] TSH DL <= 0.005 mIU/L QnOrde red By: Dharmesh Zavala on 01-10-2022 TSH Qn 3.99 m[IU]/L 0.45-5.33 [facility] Thyroid Stimulating Hormoneo n 01-10-2022 TSH Qn 3.99 m[IU]/L Normal 0.45-5.33 [facility] Comment on above: Result Comment: PERF ORMED BY: [place] [id number] PATHOLOGIST DRY WALL PLASTERER JAYY SANTA M.D. Performed By: #### C BC, BMP #### [facility] [address] [place], [place] [id number] [place] Troponin I High Sensitivityo n 01-10-2022 Troponin I High Sensitivity 110 pg/mL Off scale high 0-20 [facility] Comment on above: Result Comment: Resu lts called at 0808 on 01/10/22 PERFORMED BY: [place] [address] PATHOLOGIST DRY WALL PLASTERER JAYY SANTA M.D. Performed By: #### C KARTIK, BMP #### [place] [id number] [facility] Troponin I.cardiac [Mass/vol ume] in Serum or Plasma by High sensitivity methodOrdered By: Dharmesh Zavala on 01-10-2022 Troponin I.cardiac High sensitivity method [Mass/Vol] 110 pg/mL 0-20 [facility] Comment on above: Results calledat 080 8 on 01/10/22 US renal BIon 01-10-2022 US renal BI [facility] [place] [address] Ultrasound Report Signed Patient: Irineo Wallis Jr MR#: [id number] : 1940 Acct:[id number] Age/Sex: 81 / M ADM Date: 01/09/22 Loc: Room: [address] [place] [address] Type: ADM IN Attending Dr: Dharmesh Zavala DO Ordering Provider: Dharmesh Zavala DO Date of Service: 01/10/22 US/US renal BI: decreased urine output Copies to: Dharmesh Zavala DO Bilateral renal ultrasound HISTORY: Decreased urine output COMPARISON:None RIGHT kidney measures 10.0 cm. LEFT kidney measures 10.2 cm. No hydronephrosis identified. No shadowing renal calculus is seen. No renal lesion identified. Urinary bladder volume is 266 cc. US/US renal BI IMPRESSION: No hydronephrosis. Impression dictated by: Esa Cardoso M.D.01/10/2022 9:07 AM Dictation Location: [place] [address] Tech: Criss Lopez Transcribed By: NOLVIA 01/10/22906 Dictated By: Esa Cardoso DO 01/10/22905 Signed By: 01/10/22906 Normal [facility] Vit. B12/Folate Profileon Cobalamin (Vitamin B12) [Mass/Vol] 458 pg/mL Normal 180-914 [facility] Comment on above: Performed By: #### C KARTIK, ALBERTO #### [facility] [address] [place] [address] Folate 8.8 ng/mL Normal >5.9 [facility] Comment on above: Result Comment: Suzette te reference range: >5.9 ng/ml The WHO technical consultation on folate and vitamin b12 deficiencies has determined that folate concentrations less than 4 ng/ml are considered deficient. Performed By: #### C KARTIK, BMP #### [address] Activated partial thrombopla stin time (aPTT) in platelet poor plasma by coagulation aOrdered By: Victor Manuel Paiz on 01-09-2022 aPTT Coag (PPP) [Time] 39.1 s 25.1-36.[address] [facility] Automated erythrocytes count in urine sediment (number/area)Ordered By: Victor Manuel Paiz on 01-09-2022 RBC Auto (Urine sed) [#/Area] 0-1 [HPF] 0-4 [facility] Automated leukocytes count i n urine sediment (number/area)Ordered By: Victor Manuel Paiz on 01-09-2022 WBC Auto (Urine sed) [#/Area] 5-9 [HPF] 0-4 [facility] B-Type Natriuretic Peptideon 01-09-2022 Natriuretic peptide B (Bld) [Mass/Vol] 1810.0 pg/mL High 5-100 [facility] Comment on above: Result Comment: PERF ORMED BY: [place] [address] PATHOLOGIST DRY WALL PLASTERER JAYY SANTA M.D. Performed By: #### B MP, CBC #### [facility] [address] Basic Metabolic Panelon 11-0 -2021 Anion gap [Moles/Vol] 14.9 mmol/L Normal 6.0-15.[address] [facility] Comment on above: Performed By: #### B MP, CBC #### [facility] [address] Calcium [Mass/Vol] 9.2 mg/dL Normal 8.2-10.[address] [facility] Comment on above: Performed By: #### B MP, CBC #### [facility] [address] [place] [address] [place] Chloride [Moles/Vol] 100 mmol/L Normal 95-114 [facility] Comment on above: Performed By: #### B MP, CBC #### [facility] [address] CO2 [Moles/Vol] 25.2 mmol/L Normal 22.0-30.0 [facility] Comment on above: Performed By: #### B MP, CBC #### [facility] [address] [place] [address] [place] Creatinine [Mass/Vol] 1.62 mg/dL High 0.64-1.27 [facility] Comment on above: Performed By: #### B MP, CBC #### [facility] [address] [place] [address] [place] Creatinine Clr Calc Pharmacy 39.44 Normal [facility] Comment on above: Result Comment: PERF ORMED BY: [facility] [address] [place] [id number] PATHOLOGIST DRY WALL PLASTERER JAYY SANTA M.D. Performed By: #### B MP, CBC #### [facility] [address] Estimated GFR ( Amarilis 50 Normal [facility] Comment on above: Result Comment: GFR estimated reference range: According to KDOQI guidelines, <60 ml/min/1.73m2 is sufficient to diagnose a patient with chronic kidney disease. Performed By: #### B MP, CBC #### [address] Estimated GFR (Non- Am 41 [facility] Comment on above: Performed By: #### B MP, CBC #### [address] Glucose [Mass/Vol] 99 mg/dL Normal 70-[address] [facility] Comment on above: Result Comment: [place] Glucose Reference Range is dependent on time and content of last meal. Glucose of more than 200 mg/dL in a nonstressed, ambulatory subject supports the diagnosis of Diabetes Mellitus. ADA recommended reference range Performed By: #### B MP, CBC #### [address] Potassium [Moles/Vol] 4.1 mmol/L Normal 3.5-5.1 [facility] Comment on above: Performed By: #### B MP, CBC #### [address] Sodium [Moles/Vol] 136 mmol/L Normal 136-[address] [facility] Comment on above: Performed By: #### B MP, CBC #### [address] Urea nitrogen [Mass/Vol] 21 mg/dL Normal 9-23 [facility] Comment on above: Performed By: #### B MP, CBC #### [place] [address] [place] Basophils Auto (Bld) [#/Vol] Ordered By: Victor Manuel Paiz on 01-09-2022 Basophils (Bld) [#/Vol] 0.1 10*3/uL 0.0-0.2 [facility] Basophils/100 WBC Auto (Bld) Ordered By: Victor Manuel Paiz on 01-09-2022 Basophils/100 WBC (Bld) 1.0 % . [facility] Bilirubin Test strip Ql (U)O rdered By: Victor Manuel Paiz on 01-09-2022 Bilirubin Ql (U) Negative Negative [facility] COVID-19 Antigenon 2 COVID-19 Antigen Healthcare Worker?: N Reference Range: Negative Negative results, from patients with symptom onset beyond five days, should be treated as presumptive and confirmation with a molecular assay, if necessary, for patient management, may be performed. Negative results do not rule out COVID-19 and should not be used as the sole basis for treatment or patient management decisions, including infection control decisions. Negative results should be considered in the context of a patient's recent exposures, history and the presence of clinical signs and symptoms consistent with COVID-19. The Mars SARS Antigen MADHAVI does not differentiate between SARS-CoV and SARS-CoV-2. This test was developed and its performance characteristic determined by [employer] and validated at [facility]. This test has not been FDA cleared or approved. This test has been authorized by FDA under an Emergency Use Authorization (EUA). This test has been validated in accordance with the FDA's Guidance Document (Policy for Diagnostics Testing in Laboratories Certified to Perform High Complexity Testing under CLIA prior to Emergency Use Authorization for Coronavirus Disease-2019 during the Public Health Emergency) issued on June 07, 2019. This test is only authorized for the duration of time the declaration that circumstances exist justifying the authorization of the emergency use of in vitro diagnostic tests for detection of SARS-CoV-2 virus and/or diagnosis of COVID-19 infection under section 564(b)(1) of the Act, 21 U.S.C. 360bbb-3(b)(1), unless the authorization is terminated or revoked sooner. SARS-CoV+SARS-CoV-2 (COVID-19) Ag [Presence] in Respiratory specimen by Rapid immunoassay Negative for SARS Antigen by MADHAVI PERFORMED BY: [address] [address] PATHOLOGIST DRY WALL PLASTERER JAYY SANTA M.D. Normal [facility] Comment on above: Performed By: #### C OVID-19 MOSES [employer] #### [address] [place] [address] [facility] COVID-19 FRMCon 01-09-2022 SARS-CoV-2 (COVID-19) RNA SMITHA+probe Ql (Unsp spec) Negative Normal Negative [facility] Comment on above: Order Comment: Healt hcare Worker?: N Result Comment: Testing for SARS-CoV-2 by RT-PCR This test was developed and its performance characteristics determined by [employer] and validated at the [facility]. This test has not been FDA cleared or approved. This test has been authorized by FDA under an Emergency Use Authorization (EUA). This test has been validated in accordance with the FDA's Guidance Document (Policy for Diagnostics Testing in Laboratories Certified to Perform High Complexity Testing under CLIA prior to Emergency Use Authorization for Coronavirus Disease-2019 during the Public Health Emergency) issued on June 07, 2019. This test is only authorized for the duration of time the declaration that circumstances exist justifying the authorization of the emergency use of in vitro diagnostic tests for detection of SARS-CoV-2 virus and/or diagnosis of COVID-19 infection under section 564(b)(1) of the Act, 21 U.S.C. 360bbb-3(b)(1), unless the authorization is terminated or revoked sooner. PERFORMED BY: [place] [address] PATHOLOGIST DRY WALL PLASTERER JAYY SANTA M.D. Performed By: #### B MP, CBC #### [facility] [address] [place] [address] COVID-19 Positive/NegativeOr dered By: Victor Manuel Paiz on 01-09-2022 SARS-CoV-2 (COVID-19) N gene SMITHA+probe Ql (Resp) Negative Negative [facility] Comment on above: Testing for SARS-CoV -2 by RT-PCRThis test was developed and its performance characteristics determined by [employer] and validated at the [facility]. This test has not been FDA cleared or approved. This test has been authorized by FDA under an Emergency Use Authorization (EUA). This test has been validated in accordance with the FDA's Guidance Document (Policy for Diagnostics Testing in Laboratories Certified to Perform High Complexity Testing under CLIA prior to Emergency Use Authorization for Coronavirus Disease-2019 during the Public Health Emergency) issued on June 07, 2019. This test is only authorized for the duration of time the declaration that circumstances exist justifying the authorization of the emergency use of in vitro diagnostic tests for detection of SARS-CoV-2 virus and/or diagnosis of COVID-19 infection under section 564(b)(1) of the Act, 21 U.S.C. 360bbb-3(b)(1), unless the authorization is terminated or revoked sooner. COVID-19 SOFIAOrdered By: Brigitte Paiz on 01-09-2022 SARS-CoV+SARS-CoV-2 (COVID-19) Ag IA.rapid Ql (Resp) Negative Negative [facility] Comment on above: This is a duplicate Mars SARS Antigen (MADHAVI) result to be used for statistical tracking purpose only. CT cervical spine wo conon 1 03-11-2021 CT cervical spine wo [facility] [place] [address] CT Scan Report Signed Patient: Irineo Wallis Jr MR#: [id number] : 1940 Acct:[id number] Age/Sex: 81 / M ADM Date: 01/09/22 Loc: ER Room: Type: [facility] ER Attending Dr: Copies to: Victor Manuel Paiz MD Ordering Provider: Victo rManuel Paiz MD Date of Service: 01/09/22 CT/CT cervical spine wo con: Fall CT cervical spine withoutcontrast TECHNIQUE: Axial imaging with 2-D and 3-D reconstruction. The CT exam was performed using one or more the following dose reduction techniques: Automated exposure control, adjustment of the MA and/or Kv according to patient size, or use of the iterative reconstruction technique. COMPARISON:None HISTORY: Fell. Dizziness. Back pain. Cervical lordosis is normal. The craniocervical junction is unremarkable. No acute cervical spine fracture identified. No listhesis is seen. The facets are in adequate alignment. No abnormal increased density of the spinal canal seen. No prevertebral soft tissue abnormality identified. No skull base abnormality seen. Lung apices are unremarkable. No soft tissue abnormality seen. No airway abnormality seen. Moderate cervical spine degeneration. 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 CT/CT cervical spine wo con IMPRESSION: No acute process Impression dictated by: Esa Cardoso M.D.01/09/2022 1:02 PM Dictation Location: [facility] Transcribed By: [facility] 01/09/22 1302 Dictated By: Esa Cardoso DO 01/09/22 1300 Signed By: 01/09/22 1302 [facility] CT head/brain wo conon 01-09 CT head/brain wo con [facility] Main [place] [address] [place] [address] CT Scan Report Signed Patient: Irineo Wallis Jr MR#: [id number] : 1940 Acct:[id number] Age/Sex: 81 / M ADM Date: 01/09/22 Loc: ER Room: Type: [facility] ER Attending Dr: Copies to: Victor Manuel Paiz MD Ordering Provider: Victor Manuel Paiz MD Date of Service: 01/09/22 CT/CT head/brain wo con: Fall on Eliquis Unenhanced head CT TECHNIQUE: Contiguous axial imaging of the head. The CT exam was performed using one or more the following dose reduction techniques: Automated exposure control, adjustment of the MA and/or Kv according to patient size, or use of the iterative reconstruction technique. COMPARISON:11/09/2019 HISTORY:Fell. Dizziness. Ventricles are normal in size and position allowing for diffuse brain parenchymal atrophy. Decreased density of the white matter is most consistent with chronic small vessel disease. No intracranial hemorrhage, mass effect or herniation is identified. No recent vascular distribution infarction is seen. No abnormal extra-axial fluid collections identified. Sinuses, orbits and mastoid air cells are unremarkable. Bony structures are intact. CT/CT head/brain wo con IMPRESSION: No acute intracranial findings. Impression dictated by: Esa Cardoso M.D.01/09/2022 1:00 PM Dictation Location: [employer] Transcribed By: [facility] 01/09/22 1300 Dictated By: Esa Cardoso DO 01/09/22 1259 Signed By: 01/09/22 1300 [facility] CT lumbar spine wo conon CT lumbar spine wo con [facility] [place] [address] CT Scan Report Signed Patient: Irineo Wallis Jr MR#: [id number] : 1940 Acct:[id number] Age/Sex: 81 / M ADM Date: 01/09/22 Loc: ER Room: Type: [facility] ER Attending Dr: Copies to: Victor Manuel Paiz MD Ordering Provider: Victor Manuel Paiz MD Date of Service: 01/09/22 CT/CT lumbar spine wo con: Fall CT LUMBAR SPINE WITHOUT CONTRAST TECHNIQUE: Axial acquisition of the lumbar spine obtained with the sagittal and coronal reconstructed imaging.The CT exam was performed using one or more the following dose reduction techniques: Automated exposure control, adjustment of the MA and/or Kv according to patient size, or use of the iterative reconstruction technique. HISTORY: Fell. Back pain. COMPARISON: None FINDINGS: The lumbar lordosis is normal. No vertebral body compression fracture identified. The pedicles are intact. There is no jumped, perched or acute subluxed facets. The lamina and spinous processes are intact. No spinal canal hemorrhage identified. No acute soft tissue process identified. Mild multilevel degenerative listhesis. Advanced multilevel spondylosis and facet degeneration. Laminectomy changes. No hydronephrosis. Atherosclerosis. Pelvic surgical clips CT/CT lumbar spine wo con IMPRESSION: NO ACUTE LUMBAR SPINE FRACTURE OR VERTEBRAL DISPLACEMENT. Impression dictated by: Esa Cardoso M.D.01/09/2022 1:11 PM Dictation Location: [place] [address] Transcribed By: [facility] 01/09/22 1311 Dictated By: Esa Cardoso DO 01/09/22 1309 Signed By: 01/09/22 1311 [facility] CT thoracic spine wo conon 1 03-11-2021 CT thoracic spine wo con [facility] Main [address] [address] [address] Scan Report Signed Patient: Irineo Wallis Jr MR#: [id number] : 1940 Acct:[id number] Age/Sex: 81 / M ADM Date: 01/09/22 Loc: ER Room: Type: [facility] ER Attending Dr: Copies to: Victor Manuel Paiz MD Ordering Provider: Victor Manuel Paiz MD Date of Service: 01/09/22 CT/CT thoracic spine wo con: Fall CT THORACIC SPINE WITHOUT CONTRAST TECHNIQUE: The CT exam was performed using one or more the following dose reduction techniques: Automated exposure control, adjustment of the MA and/or Kv according to patient size, or use of the iterative reconstruction technique. HISTORY:Fell. Back pain. The thoracic kyphosis is preserved. No acute compression deformity of vertebral bodies identified. The disc spaces of the thoracic spine are maintained. Thoracic hyperostosis identified. The facets are in adequate alignment without vertebral displacement. There is no identification of acute hemorrhage within the bony spinal canal or other acute process with CT imaging. No paraspinal abnormality is identified. Moderate right and small left pleural effusion identified. Adjacent atelectasis seen. Atherosclerosis. The visualized aorta is unremarkable. No obstructive uropathy identified. CT/CT thoracic spine wo con IMPRESSION: No fracture. Thoracic spondylosis. Moderate right and small left pleural effusions. Impression dictated by: Esa Cardoso M.D.01/09/2022 1:06 PM Dictation Location: [place] [address] Transcribed By: [facility] 01/09/22 1306 Dictated By: Esa Cardoso DO 01/09/22 1304 Signed By: 01/09/22 1306 Normal [facility] Color Auto (U)Ordered By: Brigitte Paiz on 01-09-2022 Color (U) Yellow Yellow [facility] Complete Blood Count Auto Di ffon 01-09-2022 Basophils (Bld) [#/Vol] 0.1 10*3/uL Normal 0.0-0.2 [facility] Comment on above: Result Comment: PERF ORMED BY: [place] [address] PATHOLOGIST DRY WALL PLASTERER JAYY SANTA M.D. Performed By: #### B MP, CBC #### [address] Basophils/100 WBC (Bld) 1.0 % Normal . [facility] Comment on above: Performed By: #### B MP, CBC #### [facility] [address] Eosinophils (Bld) [#/Vol] 0.0 10*3/uL Normal 0.0-0.45 [facility] Comment on above: Performed By: #### B MP, CBC #### [facility] [address] [place] [address] [place] Eosinophils/100 WBC (Bld) 0.1 % Normal . [facility] Comment on above: Performed By: #### B MP, CBC #### [address] Erythrocyte distribution width (RBC) [Ratio] 15.9 % High 12.0-14.8 [facility] Comment on above: Performed By: #### B MP, CBC #### [address] Hematocrit (Bld) [Volume fraction] 36.5 % Low 38.8-50.0 [facility] Comment on above: Performed By: #### B MP, CBC #### [address] Hemoglobin (Bld) [Mass/Vol] 12.1 g/dL Low 13.0-17.0 [facility] Comment on above: Performed By: #### B MP, CBC #### [address] Lymphocytes (Bld) [#/Vol] 0.8 10*3/uL Low 1.00-4.8 [facility] Comment on above: Performed By: #### B MP, CBC #### [place] [address] [place] Lymphocytes/100 WBC (Bld) 13.5 % Normal . [facility] Comment on above: Performed By: #### B MP, CBC #### [address] MCH (RBC) [Entitic mass] 33.7 pg Normal 27.5-35.2 [facility] Comment on above: Performed By: #### B MP, CBC #### [facility] [address] MCV (RBC) [Entitic vol] 101.5 fL High 83.5-101 [facility] Comment on above: Performed By: #### B MP, CBC #### [facility] [address] Mean Corpuscular HGB Conc 33.2 g/dL Normal 32.5-35.6 [facility] Comment on above: Performed By: #### B MP, CBC #### [facility] [address] Monocytes (Bld) [#/Vol] 0.9 10*3/uL High 0.0-0.8 [facility] Comment on above: Performed By: #### B MP, CBC #### [facility] [address] Monocytes/100 WBC (Bld) 14.2 % Normal . [facility] Comment on above: Performed By: #### B MP, CBC #### [facility] [address] [place] [address] [place] Neutrophils (Bld) [#/Vol] 4.3 10*3/uL Normal 1.8-7.7 [facility] Comment on above: Performed By: #### B MP, CBC #### [facility] [address] Neutrophils/100 WBC (Bld) 71.2 % Normal . [facility] Comment on above: Performed By: #### B MP, CBC #### [facility] [address] [place] [address] [place] Nucleated RBC/100 WBC (Bld) [Ratio] 0.1 % Normal 0-0.5 [facility] Comment on above: Performed By: #### B MP, CBC #### [facility] [address] Platelet mean volume (Bld) [Entitic vol] 8.3 fL Normal 6.6-10.1 [facility] Comment on above: Performed By: #### B MP, CBC #### [facility] [address] Platelets (Bld) [#/Vol] 162 10*3/uL Normal 150-450 [facility] Comment on above: Performed By: #### B MP, CBC #### [facility] [address] RBC (Bld) [#/Vol] 3.59 10*6/uL Low 3.90-5.60 [facility] Comment on above: Performed By: #### B MP, CBC #### [facility] [address] WBC (Bld) [#/Vol] 6.0 10*3/uL Normal 4.5-11.[address] [facility] Comment on above: Performed By: #### B MP, CBC #### [address] Creatine Kinaseon 01-09-2022 CK [Catalytic activity/Vol] 231 U/L Normal 22-269 [facility] Comment on above: Performed By: #### B MP, CBC #### [address] Creatine kinase [Enzymatic a ctivity/volume] in Serum or PlasmaOrdered By: Victor Manuel Paiz on 01-09-2022 CK [Catalytic activity/Vol] 231 U/L 22-269 [facility] Creatinine Kinase MBon 01-09 CK.MB [Mass/Vol] 5.4 ng/mL Normal 0.6-6.3 [facility] Comment on above: Performed By: #### B MP, CBC #### [address] CKMB Relative Index 2.3 % Normal 0.00-2.50 [facility] Comment on above: Performed By: #### B MP, CBC #### [address] Creatinine and Glomerular fi ltration rate.predicted panel (S/P/Bld)Ordered By: Victor Manuel Paiz on 01-09-2022 Creatinine [Mass/Vol] 1.62 mg/dL 0.64-1.27 [facility] Dipstick and Microscopicon 1 03-11-2021 Appearance (U) Cloudy Critically abnormal Clear [facility] Comment on above: Order Comment: Name Collection Type:: Clean-Voided Midstream Performed By: #### B MP, CBC #### [facility] [address] [place] [id number] [place] Bacteria,Urine None Seen Normal None Seen [facility] Comment on above: Order Comment: Name Collection Type:: Clean-Voided Midstream Performed By: #### B MP, CBC #### [facility] [address] [place] [address] [place] Bilirubin,Urine Negative Normal Negative [facility] Comment on above: Order Comment: Name Collection Type:: Clean-Voided Midstream Performed By: #### B MP, CBC #### [facility] [address] [place] [id number] [place] Color (U) Yellow Normal Yellow [facility] Comment on above: Order Comment: Name Collection Type:: Clean-Voided Midstream Performed By: #### B MP, CBC #### [facility] [address] [place] [id number] [place] Glucose Ql (U) Normal Normal Normal [facility] Comment on above: Order Comment: Name Collection Type:: Clean-Voided Midstream Performed By: #### B MP, CBC #### [facility] [address] [place] [id number] [place] Hyaline Casts,Urine 0-8 Normal 0-8 [facility] Comment on above: Order Comment: Name Collection Type:: Clean-Voided Midstream Performed By: #### B MP, CBC #### [facility] [address] [place] [id number] [place] Ketones Ql (U) Trace High Negative [facility] Comment on above: Order Comment: Name Collection Type:: Clean-Voided Midstream Performed By: #### B MP, CBC #### [facility] [address] [place] [id number] [place] Leukocyte esterase Test strip Ql (U) 2+ High Negative [facility] Comment on above: Order Comment: Name Collection Type:: Clean-Voided Midstream Performed By: #### B MP, CBC #### [place] [address] [place] Nitrite,Urine Negative Normal Negative [facility] Comment on above: Order Comment: Name Collection Type:: Clean-Voided Midstream Performed By: #### B MP, CBC #### [place] [address] [place] Occult Blood,Urine Negative Normal Negative [facility] Comment on above: Order Comment: Name Collection Type:: Clean-Voided Midstream Result Comment: PERF ORMED BY: [place] [address] PATHOLOGIST [employer] WALL PLASTERER JAYY SANTA M.D. Performed By: #### B MP, CBC #### [address] pH (U) 5.5 [pH] Normal 5.0-9.0 [facility] Comment on above: Order Comment: Name Collection Type:: Clean-Voided Midstream Performed By: #### B MP, CBC #### [place] [address] [place] Protein,Urine Trace High Negative [facility] Comment on above: Order Comment: Name Collection Type:: Clean-Voided Midstream Performed By: #### B MP, CBC #### [place] [address] [place] RBC LM.HPF (Urine sed) [#/Area] 0 /[HPF] Normal 0-4 [facility] Comment on above: Order Comment: Name Collection Type:: Clean-Voided Midstream Performed By: #### B MP, CBC #### [place] [address] [place] Specificy [place],Urine 1.018 Normal 1.001-1.03 0 [facility] Comment on above: Order Comment: Name Collection Type:: Clean-Voided Midstream Performed By: #### B MP, CBC #### [place] [address] [place] Squamous Epithelial Cell,Urine 0-1 Normal 0-2 [facility] Comment on above: Order Comment: Name Collection Type:: Clean-Voided Midstream Performed By: #### B MP, CBC #### [address] Urobilinogen,Urine Normal Normal Normal [facility] Comment on above: Order Comment: Name Collection Type:: Clean-Voided Midstream Performed By: #### B MP, CBC #### [address] WBC,Urine 5-9 High 0-4 [facility] Comment on above: Order Comment: Name Collection Type:: Clean-Voided Midstream Performed By: #### B MP, CBC #### [address] Yeast,Urine None Seen Normal None Seen [facility] Comment on above: Order Comment: Name Collection Type:: Clean-Voided Midstream Result Comment: PERF ORMED BY: [place] [address] PATHOLOGIST DRY WALL PLASTERER JAYY SANTA M.D. Performed By: #### B MP, CBC #### [address] ECG 12 lead ECGon 01-09-2022 ECG 12 lead ECG [facility] Main [place] [address] [place] [address] Electrocardiograph Report Signed Patient: Irineo Wallis Jr MR#: [id number] : 1940 Acct:[id number] Age/Sex: 81 / M ADM Date: 01/09/22 Loc: Room: [address] [place] [address] Type: DIS IN Attending Dr: Raji Ennis MD Ordering Provider: Victor Manuel Paiz MD Date of Service: 01/09/2207/26/946 ECG/ECG 12 lead ECG: Fall Copies to: Test Reason : Blood Pressure : 130/067 mmHG Vent. Rate : 066 BPM Atrial Rate : 288 BPM P-R Int : 000 ms QRS Dur : 082 ms QT Int : 406 ms P-R-T Axes : 000 132 133 degrees QTc Int : 425 ms Atrial fibrillation with premature ventricular or aberrantly conducted complexes Low voltage QRS Left posterior fascicular block Nonspecific ST and T wave abnormality Abnormal ECG When compared with ECG of 21-DEC-2019 07:20, Left posterior fascicular block is now present T wave inversion now evident in Lateral leads Confirmed by VICTOR MANUEL PAIZ MD ([id number]) on 01/09/2022 3:48:37 PM Referred By: Electronically Signed By:VICTOR MANUEL PAIZ MD Transcribed By: MUS Signed By Victor Manuel Paiz MD 07/26 1548 Normal [facility] Eosinophils Auto (Bld) [#/Vo l]Ordered By: Victor Manuel Paiz on 01-09-2022 Eosinophils (Bld) [#/Vol] 0.0 10*3/uL 0.0-0.45 [facility] Eosinophils/100 WBC Auto (Bl d)Ordered By: Victor Manuel Paiz on 01-09-2022 Eosinophils/100 WBC (Bld) 0.1 % . [facility] Erythrocyte distribution wid th Auto (RBC) [Ratio]Ordered By: Victor Manuel Paiz on 01-09-2022 Erythrocyte distribution width (RBC) [Ratio] 15.9 % 12.0-14.8 [facility] Estimated glomerular filtrat ion rate (GFR) non- AmericanOrdered By: Victor Manuel Paiz on 01-09-2022 GFR/1.73 sq M.predicted among non-blacks MDRD (S/P/Bld) [Vol rate/Area] 41 mL/Min [facility] Hematocrit Auto (Bld) [Volum e fraction]Ordered By: Victor Manuel Paiz on 01-09-2022 Hematocrit (Bld) [Volume fraction] 36.5 % 38.8-50.0 [facility] Hemoglobin [Mass/volume] in BloodOrdered By: Victor Manuel Paiz on 01-09-2022 Hemoglobin (Bld) [Mass/Vol] 12.1 g/dL 13.0-17.0 [facility] Ketones Auto test strip (U) [Mass/Vol]Ordered By: Victor Manuel Paiz on 01-09-2022 Ketones (U) [Mass/Vol] Trace Negative [facility] Laboratory - Chemistry and C hemistry - challengeOrdered By: Victor Manuel Paiz on 01-09-2022 Natriuretic peptide B (Bld) [Mass/Vol] 1810.0 pg/mL 5-100 [facility] - CoagulationOrde red By: Victor Manuel Paiz on 01-09-2022 PT Coag (PPP) [Time] 28.4 s 9.0-12.9 [facility] Laboratory - Hematology and Cell countsOrdered By: Victor Manuel Paiz on 01-09-2022 Nucleated RBC/100 WBC (Bld) [Ratio] 0.1 % 0-0.5 [facility] - UrinalysisOrder ed By: Victor Manuel Paiz on 01-09-2022 Hyaline casts LM Ql (Urine sed) 0-8 [LPF] 0-8 [facility] Leukocytes [#/volume] in Blo od by Automated countOrdered By: Victor Manuel Paiz on 01-09-2022 WBC (Bld) [#/Vol] 6.0 10*3/uL 4.5-11.[address] [facility] Lymphocytes Auto (Bld) [#/Vo l]Ordered By: Victor Manuel Paiz on 01-09-2022 Lymphocytes (Bld) [#/Vol] 0.8 10*3/uL 1.00-4.8 [facility] Lymphocytes/100 WBC Auto (Bl d)Ordered By: Victor Manuel Paiz on 01-09-2022 Lymphocytes/100 WBC (Bld) 13.5 % . [facility] MCH Auto (RBC) [Entitic mass ]Ordered By: Victor Manuel Paiz on 01-09-2022 MCH (RBC) [Entitic mass] 33.7 pg 27.5-35.2 [facility] MCHC Auto (RBC) [Mass/Vol]Or dered By: Victor Manuel Paiz on 01-09-2022 MCHC (RBC) [Mass/Vol] 33.2 g/dL 32.5-35.6 [facility] MCV Auto (RBC) [Entitic vol] Ordered By: Victor Manuel Paiz on 01-09-2022 MCV (RBC) [Entitic vol] 101.5 fL 83.5-101 [facility] Monocytes Auto (Bld) [#/Vol] Ordered By: Victor Manuel Paiz on 01-09-2022 Monocytes (Bld) [#/Vol] 0.9 10*3/uL 0.0-0.8 [facility] Monocytes/100 WBC Auto (Bld) Ordered By: Victor Manuel Paiz on 01-09-2022 Monocytes/100 WBC (Bld) 14.2 % . [facility] Neutrophils Auto (Bld) [#/Vo l]Ordered By: Victor Manuel Paiz on 01-09-2022 Neutrophils (Bld) [#/Vol] 4.3 10*3/uL 1.8-7.7 [facility] Neutrophils/100 WBC Auto (Bl d)Ordered By: Victor Manuel Paiz on 01-09-2022 Neutrophils/100 WBC (Bld) 71.2 % . [facility] Nitrite Test strip Ql (U)Ord ered By: Victor Manuel Paiz on 01-09-2022 Nitrite Ql (U) Negative Negative [facility] No Panel InformationOrdered By: Victor Manuel Paiz on 01-09-2022 SARS Antigen (LFIA) [facility] Estimated GFR () 50 mL/Min [facility] Comment on above: GFR estimated refere nce range: According to KDOQI guidelines, <60 ml/min/1.73m2 is sufficient to diagnose a patient with chronic kidney disease. Pharmacy Creatinine Clearance (Chem 39.44 [facility] SARS Antigen (LFIA) [facility] Partial Thromboplastin Timeo n 01-09-2022 aPTT Coag (Bld) [Time] 39.1 s High 25.1-36.[address] [facility] Comment on above: Result Comment: PERF ORMED BY: [place] [address] PATHOLOGIST DRY WALL PLASTERER JAYY SANTA M.D. Performed By: #### B MP, CBC #### [address] Platelet mean volume Auto (B ld) [Entitic vol]Ordered By: Victor Manuel Paiz on 01-09-2022 Platelet mean volume (Bld) [Entitic vol] 8.3 fL 6.6-10.1 [facility] Platelet poor plasma interna tional normalized ratio (INR) by coagulation assay (relatOrdered By: Victor Manuel Paiz on 01-09-2022 INR Coag (PPP) [Relative time] 2.5 {INR} [facility] Comment on above: INR Therapeutic Rang e A) Pre- and Peroperative OAT started two weeks before surgery. NOT HIP SURGERY: 1.5 - 2.5 HIP SURGERY: 2 - 3B) Primary and secondary prevention of venous THROMBOSIS: 2 - 3C) Active venous thrombosis, pulmonary embolismand prevention of recurrent venous thrombosis: 2 - 3D) Prevention of arterial thromboembolismincluding patients with mechanical heart valves: 3 - 4.5 Platelets Auto (Bld) [#/Vol] Ordered By: Victor Manuel Paiz on 01-09-2022 Platelets (Bld) [#/Vol] 162 10*3/uL 150-450 [facility] Protein Auto test strip (U) [Mass/Vol]Ordered By: Victor Manuel Paiz on 01-09-2022 Protein (U) [Mass/Vol] Trace mg/dL Negative [facility] Prothrombin Time INRon 01-09 INR Coag (PPP) [Relative time] 2.5 {INR} Normal [facility] Comment on above: Result Comment: INR Therapeutic Range A) Pre- and Peroperative OAT started two weeks before surgery. NOT HIP SURGERY: 1.5 - 2.5 HIP SURGERY: 2 - 3 B) Primary and secondary prevention of venous THROMBOSIS: 2 - 3 C) Active venous thrombosis, pulmonary embolism and prevention of recurrent venous thrombosis: 2 - 3 D) Prevention of arterial thromboembolism including patients with mechanical heart valves: 3 - 4.5 Performed By: #### B MARY, CBC #### [facility] [address] PT Coag (PPP) [Time] 28.4 s High 9.0-12.9 [facility] Comment on above: Performed By: #### B MARY, CBC #### [facility] [address] RBC Auto (Bld) [#/Vol]Ordere d By: Victor Manuel Paiz on 01-09-2022 RBC (Bld) [#/Vol] 3.59 10*6/uL 3.90-5.60 [facility] Serum or plasma anion gap de terminationOrdered By: Victor Manuel Paiz on 01-09-2022 Anion gap [Moles/Vol] 14.9 mmol/L 6.0-15.[address] [facility] Serum or plasma calcium alistair urement (mass/volume)Ordered By: Victor Manuel Paiz on 01-09-2022 Calcium [Mass/Vol] 9.2 mg/dL 8.2-10.[address] [facility] Serum or plasma chloride jaymie surement (moles/volume)Ordered By: Victor Manuel Paiz on 01-09-2022 Chloride [Moles/Vol] 100 mmol/L 95-114 [facility] Serum or plasma creatine kin ase MB (CKMB)/total creatine kinase (CK) ratio by calculaOrdered By: Victor Manuel Paiz on 01-09-2022 CK.MB Calc [Catalytic fraction] 2.3 % 0.00-2.50 [facility] Serum or plasma creatine kin ase MB measurement (mass/volume)Ordered By: Victor Manuel Paiz on 01-09-2022 CK.MB [Mass/Vol] 5.4 ng/mL 0.6-6.3 [facility] Serum or plasma glucose alistair urement (mass/volume)Ordered By: Victor Manuel Paiz on 01-09-2022 Glucose [Mass/Vol] 99 mg/dL 70-[address] [facility] Comment on above: ADA recommended refe rence rangeRandom Glucose Reference Range is dependent on time and content of last meal. Glucose of more than 200 mg/dL in a nonstressed, ambulatory subject supports the diagnosis of Diabetes Mellitus. Serum or plasma potassium me asurement (moles/volume)Ordered By: Victor Manuel Paiz on 01-09-2022 Potassium [Moles/Vol] 4.1 mmol/L 3.5-5.1 [facility] Serum or plasma sodium measu rement (moles/volume)Ordered By: Victor Manuel Paiz on 01-09-2022 Sodium [Moles/Vol] 136 mmol/L 136-[address] [facility] Serum or plasma total carbon dioxide measurement (moles/volume)Ordered By: Victor Manuel Paiz on 01-09-2022 CO2 [Moles/Vol] 25.2 mmol/L 22.0-30.0 [facility] Serum or plasma urea nitroge n measurement (mass/volume)Ordered By: Victor Manuel Paiz on 01-09-2022 Urea nitrogen [Mass/Vol] 21 mg/dL 9- [facility] Mars Ag Negativeon 01-10-20 Mars Ag Negative Negative Normal Negative [facility] Comment on above: Result Comment: This is a duplicate Mars SARS Antigen (MADHAVI) result to be used for statistical tracking purpose only. PERFORMED BY: [place] [address] PATHOLOGIST DRY WALL PLASTERER JAYY SANTA M.D. Performed By: #### C OVID-19 MARS, SOFIANEG #### [facility] [address] [place] [address] Specific gravity Auto test s trip (U) [Rel density]Ordered By: Victor Manuel Paiz on 01-09-2022 Specific gravity (U) [Rel density] 1.018 1.001-1.03 0 [facility] Squamous epithelial cells de tection in urine sediment by light microscopyOrdered By: Victor Manuel Paiz on 01-09-2022 Epithelial cells.squamous LM Ql (Urine sed) 0-1 [HPF] 0-2 [facility] Troponin I High Sensitivityo n 01-09-2022 Troponin I High Sensitivity 101 pg/mL Off scale high 0-20 [facility] Comment on above: Result Comment: Resu lts called at 1208 on 01/09/22 PERFORMED BY: [place] [address] PATHOLOGIST [employer] WALL PLASTERER JAYY SANTA M.D. Performed By: #### B MARY, CBC #### [facility] [address] [place] [address] Troponin I.cardiac [Mass/vol ume] in Serum or Plasma by High sensitivity methodOrdered By: Victor Manuel Paiz on 01-09-2022 Troponin I.cardiac High sensitivity method [Mass/Vol] 101 pg/mL 0-20 [facility] Comment on above: Results calledat 120 8 on 01/09/22 Urine Cultureon 01-09-2022 Bacteria identified Cx Nom (U) 30,000 colonies/ml mixed bacterial skin contaminants 2 Days PERFORMED BY: [place] [address] PATHOLOGIST DR[employer] WALL PLASTERER JAYY SANTA M.D. [facility] Comment on above: Performed By: #### B MP, CBC #### [address] Urine bacteria detection by automated methodOrdered By: Victor Manuel Paiz on 01-09-2022 Bacteria Auto Ql (U) None seen None Seen [facility] Urine clarity by refractomet ry automatedOrdered By: Victor Manuel Paiz on 01-09-2022 Clarity Refractometry automated (U) Cloudy Clear [facility] Urine glucose measurement by automated test strip (mass/volume)Ordered By: Victor Manuel Paiz on 01-09-2022 Glucose Auto test strip (U) [Mass/Vol] Normal mg/dL Normal [facility] Urine hemoglobin detection b y automated test stripOrdered By: Victor Manuel Paiz on 01-09-2022 Hemoglobin Auto test strip Ql (U) Negative Negative [facility] Urine leukocyte esterase det ection by automated test stripOrdered By: Victor Manuel Paiz on 01-09-2022 Leukocyte esterase Auto test strip Ql (U) 2+ Negative [facility] Urobilinogen Auto test strip (U) [Mass/Vol]Ordered By: Victor Manuel Paiz on 01-09-2022 Urobilinogen (U) [Mass/Vol] Normal mg/dL Normal [facility] XR chest 1V portableon 01-09 XR chest 1V portable [facility] [place] [address] XRay Report Signed Patient: Irineo Wallis Jr MR#: [id number] : 1940 Acct:[id number] Age/Sex: 81 / M ADM Date: 01/09/22 Loc: ER Room: Type: [facility] ER Attending Dr: Copies to: Victor Manuel Paiz MD Ordering Provider: Victor Manuel Paiz MD Date of Service: 01/09/22 XR/XR chest 1V portable: Fall Plain film chestsingle view HISTORY:Fell. Dizziness. COMPARISON:12/21/19 FINDINGS: Cardiac, mediastinal and hilar silhouettes are stable. Atherosclerosis of thoracic aorta. Developing groundglass parenchymal densities greater on the RIGHT present. No vascular congestion. Minimal basal pleural reactions. No pneumothorax. Bony structures are intact. XR/XR chest 1V portable IMPRESSION: Developing groundglass parenchymal densities greater on the RIGHT. Consider pulmonary edema. Impression dictated by: Esa Cardoso M.D.01/09/2022 10:11 AM Dictation Location: [place] [address] Transcribed By: [facility] 01/09/22 1011 Dictated By: Esa Cardoso DO 01/09/22 1010 Signed By: 01/09/22 1011 Normal [facility] Yeast detection in urine sed iment by light microscopyOrdered By: Victor Manuel Paiz on 01-09-2022 Yeast LM Ql (Urine sed) None seen [HPF] None Seen [facility] pH Auto test strip (U)Ordere d By: Victor Manuel Paiz on 01-09-2022 pH (U) 5.5 [pH] 5.0-9.0 [facility] Body fluid albumin measureme nt (mass/volume)Ordered By: Feliciano Ga on 12-17-2021 Albumin (Body fld) [Mass/Vol] 3.5 g/dL 3.2-5.5 [facility] Comprehensive Metabolic Pane haley 12-17-2021 Albumin [Mass/Vol] 3.5 g/dL Normal 3.2-5.[address] [facility] Comment on above: Order Comment: Reaso n for Exam Hypothyroidism, unspecified;Hypertension;Atrial fibrillation Reason for Exam Hypothyroidism, unspecified Performed By: #### C BC, BMP #### [facility] [address] [place] [address] [place] Albumin/Globulin [Mass ratio] 1.6 {ratio} Normal [facility] Comment on above: Order Comment: Reaso n for Exam Hypothyroidism, unspecified;Hypertension;Atrial fibrillation Reason for Exam Hypothyroidism, unspecified Performed By: #### C BC, BMP #### [facility] [address] [place] [address] [place] ALP [Catalytic activity/Vol] 92 U/L Normal 32-92 [facility] Comment on above: Order Comment: Reaso n for Exam Hypothyroidism, unspecified;Hypertension;Atrial fibrillation Reason for Exam Hypothyroidism, unspecified Performed By: #### C BC, BMP #### [facility] [address] [place] [address] [place] ALT [Catalytic activity/Vol] 19 U/L Normal 10-60 [facility] Comment on above: Order Comment: Reaso n for Exam Hypothyroidism, unspecified;Hypertension;Atrial fibrillation Reason for Exam Hypothyroidism, unspecified Performed By: #### C BC, BMP #### [facility] [address] Anion gap [Moles/Vol] 15.3 mmol/L High 6.0-15.[address] [facility] Comment on above: Order Comment: Reaso n for Exam Hypothyroidism, unspecified;Hypertension;Atrial fibrillation Reason for Exam Hypothyroidism, unspecified Performed By: #### C BC, BMP #### [facility] [address] AST [Catalytic activity/Vol] 27 U/L Normal 10-42 [facility] Comment on above: Order Comment: Reaso n for Exam Hypothyroidism, unspecified;Hypertension;Atrial fibrillation Reason for Exam Hypothyroidism, unspecified Performed By: #### C BC, BMP #### [facility] [address] Bilirubin [Mass/Vol] 1.2 mg/dL Normal 0.3-1.2 [facility] Comment on above: Order Comment: Reaso n for Exam Hypothyroidism, unspecified;Hypertension;Atrial fibrillation Reason for Exam Hypothyroidism, unspecified Performed By: #### C BC, BMP #### [facility] [address] Calcium [Mass/Vol] 9.6 mg/dL Normal 8.2-10.[address] [facility] Comment on above: Order Comment: Reaso n for Exam Hypothyroidism, unspecified;Hypertension;Atrial fibrillation Reason for Exam Hypothyroidism, unspecified Performed By: #### C BC, BMP #### [facility] [address] [place] [id number] [facility] Chloride [Moles/Vol] 103 mmol/L Normal 95-114 [facility] Comment on above: Order Comment: Reaso n for Exam Hypothyroidism, unspecified;Hypertension;Atrial fibrillation Reason for Exam Hypothyroidism, unspecified Performed By: #### C BC, BMP #### [facility] [address] [place] [address] [place] CO2 [Moles/Vol] 25.2 mmol/L Normal 22.0-30.0 [facility] Comment on above: Order Comment: Reaso n for Exam Hypothyroidism, unspecified;Hypertension;Atrial fibrillation Reason for Exam Hypothyroidism, unspecified Performed By: #### C BC, BMP #### [facility] [address] [place] [id number] [facility] Creatinine [Mass/Vol] 1.29 mg/dL High 0.64-1.27 [facility] Comment on above: Order Comment: Reaso n for Exam Hypothyroidism, unspecified;Hypertension;Atrial fibrillation Reason for Exam Hypothyroidism, unspecified Performed By: #### C BC, BMP #### [facility] [address] Estimated GFR ( Amarilis > 60 [facility] Comment on above: Order Comment: Reaso n for Exam Hypothyroidism, unspecified;Hypertension;Atrial fibrillation Reason for Exam Hypothyroidism, unspecified Result Comment: GFR estimated reference range: According to KDOQI guidelines, <60 ml/min/1.73m2 is sufficient to diagnose a patient with chronic kidney disease. Performed By: #### C BC, BMP #### [facility] [address] Estimated GFR (Non- Am 54 [facility] Comment on above: Order Comment: Reaso n for Exam Hypothyroidism, unspecified;Hypertension;Atrial fibrillation Reason for Exam Hypothyroidism, unspecified Performed By: #### C BC, BMP #### [facility] [address] [place] [address] [facility] Globulin (S) [Mass/Vol] 2.2 g/dL [facility] Comment on above: Order Comment: Reaso n for Exam Hypothyroidism, unspecified;Hypertension;Atrial fibrillation Reason for Exam Hypothyroidism, unspecified Performed By: #### C BC, BMP #### [facility] [address] [place] [id number] [facility] Glucose [Mass/Vol] 84 mg/dL Normal 70-[address] [facility] Comment on above: Order Comment: Reaso n for Exam Hypothyroidism, unspecified;Hypertension;Atrial fibrillation Reason for Exam Hypothyroidism, unspecified Result Comment: [facility] Glucose Reference Range is dependent on time and content of last meal. Glucose of more than 200 mg/dL in a nonstressed, ambulatory subject supports the diagnosis of Diabetes Mellitus. ADA recommended reference range Performed By: #### C BC, BMP #### [facility] [address] Potassium [Moles/Vol] 4.5 mmol/L Normal 3.5-5.1 [facility] Comment on above: Order Comment: Reaso n for Exam Hypothyroidism, unspecified;Hypertension;Atrial fibrillation Reason for Exam Hypothyroidism, unspecified Performed By: #### C BC, BMP #### [facility] [address] Protein [Mass/Vol] 5.7 g/dL Low 6.1-7.[address] [facility] Comment on above: Order Comment: Reaso n for Exam Hypothyroidism, unspecified;Hypertension;Atrial fibrillation Reason for Exam Hypothyroidism, unspecified Performed By: #### C BC, BMP #### [facility] [address] [place] [id number] [place] Sodium [Moles/Vol] 139 mmol/L Normal 136-[address] [facility] Comment on above: Order Comment: Reaso n for Exam Hypothyroidism, unspecified;Hypertension;Atrial fibrillation Reason for Exam Hypothyroidism, unspecified Performed By: #### C BC, BMP #### [facility] [address] [place] [id number] [place] Urea nitrogen [Mass/Vol] 16 mg/dL Normal 9-23 [facility] Comment on above: Order Comment: Reaso n for Exam Hypothyroidism, unspecified;Hypertension;Atrial fibrillation Reason for Exam Hypothyroidism, unspecified Performed By: #### C BC, BMP #### [place] [address] [place] Creatinine and Glomerular fi ltration rate.predicted panel (S/P/Bld)Ordered By: Feliciano Ga on 12-17-2021 Creatinine [Mass/Vol] 1.29 mg/dL 0.64-1.27 [facility] Estimated glomerular filtrat ion rate (GFR) non- AmericanOrdered By: Feliciano Ga on 12-17-2021 GFR/1.73 sq M.predicted among non-blacks MDRD (S/P/Bld) [Vol rate/Area] 54 mL/Min [facility] Free T4 (Free Thyroxine)on 1 Free T4 [Mass/Vol] 1.09 ng/dL Normal 0.61-1.[address] [facility] Comment on above: Order Comment: Reaso n for Exam Hypothyroidism, unspecified;Hypertension;Atrial fibrillation Reason for Exam Hypothyroidism, unspecified Performed By: #### C BC, BMP #### [facility] [address] Globulin Calc (S) [Mass/Vol] Ordered By: Feliciano Ga on 12-17-2021 Globulin (S) [Mass/Vol] 2.2 g/dL [facility] No Panel InformationOrdered By: Feliciano Ga on 12-17-2021 Estimated GFR () > 60 mL/Min [facility] Comment on above: GFR estimated refere nce range: According to KDOQI guidelines, <60 ml/min/1.73m2 is sufficient to diagnose a patient with chronic kidney disease. Pharmacy Creatinine Clearance (Chem N/A [facility] Protein [Mass/volume] in Ser um or PlasmaOrdered By: Feliciano Ga on 12-17-2021 Protein [Mass/Vol] 5.7 g/dL 6.1-7.[address] [facility] Serum or plasma alanine alvarez otransferase measurement without P-5'-P (enzymatic activiOrdered By: Feliciano Ga on 12-17-2021 ALT No additional P-5'-P [Catalytic activity/Vol] 19 U/L 10-60 [facility] Serum or plasma albumin/glob ulin mass ratioOrdered By: Feliciano Ga on 12-17-2021 Albumin/Globulin [Mass ratio] 1.6 {ratio} [facility] Serum or plasma alkaline harish sphatase measurement (enzymatic activity/volume)Ordered By: Feliciano Ga on 12-17-2021 ALP [Catalytic activity/Vol] 92 U/L 32-92 [facility] Serum or plasma anion gap de terminationOrdered By: Feliciano Ga on 12-17-2021 Anion gap [Moles/Vol] 15.3 mmol/L 6.0-15.[address] [facility] Serum or plasma aspartate am inotransferase measurement (enzymatic activity/volume)Ordered By: Feliciano Ga on 12-17-2021 AST [Catalytic activity/Vol] 27 U/L 10- [facility] Serum or plasma calcium alistair urement (mass/volume)Ordered By: Feliciano Ga on 12-17-2021 Calcium [Mass/Vol] 9.6 mg/dL 8.2-10.[address] [facility] Serum or plasma chloride jaymie surement (moles/volume)Ordered By: Feliciano Ga on 12-17-2021 Chloride [Moles/Vol] 103 mmol/L 95-114 [facility] Serum or plasma glucose alistair urement (mass/volume)Ordered By: Feliciano Ga on 12-17-2021 Glucose [Mass/Vol] 84 mg/dL 70-[address] [facility] Comment on above: ADA recommended refe rence rangeRandom Glucose Reference Range is dependent on time and content of last meal. Glucose of more than 200 mg/dL in a nonstressed, ambulatory subject supports the diagnosis of Diabetes Mellitus. Serum or plasma potassium me asurement (moles/volume)Ordered By: Feliciano Ga on 12-17-2021 Potassium [Moles/Vol] 4.5 mmol/L 3.5-5.1 [facility] Serum or plasma sodium measu rement (moles/volume)Ordered By: Feliciano Ga on 12-17-2021 Sodium [Moles/Vol] 139 mmol/L 136-[address] [facility] Serum or plasma total biliru bin measurement (mass/volume)Ordered By: Feliciano Ga on 12-17-2021 Bilirubin [Mass/Vol] 1.2 mg/dL 0.3-1.2 [facility] Serum or plasma total carbon dioxide measurement (moles/volume)Ordered By: Feliciano Ga on 12-17-2021 CO2 [Moles/Vol] 25.2 mmol/L 22.0-30.0 [facility] Serum or plasma urea nitroge n measurement (mass/volume)Ordered By: Feliciano Ga on 12-17-2021 Urea nitrogen [Mass/Vol] 16 mg/dL 9-23 [facility] TSH DL <= 0.005 mIU/L QnOrde red By: Feliciano Ga on 12-17-2021 TSH Qn 1.83 m[IU]/L 0.45-5.33 [facility] Thyroid Stimulating Hormoneo n 12-17-2021 TSH Qn 1.83 m[IU]/L Normal 0.45-5.33 [facility] Comment on above: Order Comment: Reaso n for Exam Hypothyroidism, unspecified;Hypertension;Atrial fibrillation Reason for Exam Hypothyroidism, unspecified Result Comment: PERF ORMED BY: [facility] [address] [place] [id number] PATHOLOGIST DRY WALL PLASTERER JAYY SANTA M.D. Performed By: #### C BC, BMP #### [address] Thyroxine (T4) free [Mass/vo lume] in Serum or PlasmaOrdered By: Feliciano Ga on 12-17-2021 Free T4 [Mass/Vol] 1.09 ng/dL 0.61-1.[address] [facility] Office Visit (Cardiology)on 08-04-2021 Follow-up visit Diagnoses/Problems Assessed Non-ischemic cardiomyopathy (425.4) (I42.8) Chronic atrial fibrillation (427.31) (I48.20) Essential hypertension, benign (401.1) (I10) Hyperlipemia (272.4) (E78.5) High risk medication use (V58.69) (Z79.899) Edema (782.3) (R60.9) Class 1 obesity with body mass index (BMI) of 33.0 to 33.9 in adult (278.00,V85.33) (E66.9,Z68.33) Former smoker (V15.82) (Z87.891) Quit smoking in 1979 Chronic anticoagulation (V58.61) (Z79.01) Orders Class 1 obesity with body mass index (BMI) of 33.0 to 33.9 in adult Healthy Weight Tips; Status:Complete - Retrospective Authorization; Done: 04Aug2021 Essential hypertension, benign, Hyperlipemia Renew: Atorvastatin Calcium 40 MG Oral Tablet; TAKE 1 TABLET Bedtime SocHx: Former smoker Tobacco Use Screening; Status:Complete; Done: 04Aug2021 Patient Instructions By signing my name below, I, Norah Leyva LPN ,Michael, attest that this documentation has been prepared under the direction and in the presence of Dr. Irineo Mcintyre DO. All medical record entries made by the Kimaniibrufino were at my direction and personally dictated by me. I have reviewed the chart and agree that the record accurately reflects my personal performance of the history, physical exam, discussion and plan. Please bring all medicines, vitamins, and herbal supplements with you when you come to the office. Prescriptions will not be filled unless you are compliant with your follow up appointments or have a follow up appointment scheduled as per instruction of your physician. Refills should be requested at the time of your visit. Fall prevention education given Follow up in 1 year. Will obtain lab results from PCP Chief Complaint IRINEO WALLIS is being seen for a 6 month follow-up of. 81-year-old gentleman who returns for annual follow-up he is doing well he has no cardiovascular complaints, he does have a chronic left greater than right lower extremity edema and chronic atrial fibrillation is rate controlled. He remains on Eliquis with no bleeding or thromboembolic events. He remains on carvedilol, digoxin and Entresto and Bumex and atorvastatin again with no hospitalizations for heart failure or ACS or arrhythmic events. Heart catheterization in 2016 revealed minimal coronary disease and severe LV dysfunction after institution of appropriate guideline directed medical therapies, follow-up MUGA scan in June 2016 revealed ejection fraction of 50%., Confirmed by echocardiogram in December 2019 with ejection fraction of 50 to 55% Recommendations: Continue current therapies follow-up in 1 year Surgical History Problems History of Back surgery History of Cardiac catheterization History of Complete colonoscopy [facility] History of Hip replacement History of Knee replacement 2016 and 2020 History of Neck surgery History of Prostate surgery History of Shoulder arthroscopy Current Meds Medication NameInstruction Acetaminophen 325 MG Oral TabletTAKE 1 TO 2 TABLETS EVERY 6 HOURS NEEDED. Allopurinol 300 MG Oral TabletTAKE 1 TABLET DAILY. Atorvastatin Calcium 40 MG Oral TabletTAKE 1 TABLET Bedtime Bumetanide 1 MG Oral TabletTAKE 1 TABLET BY MOUTH TUESDAY - TUESDAY *DO NOT TAKE ON TUESDAY OR TUESDAY* Carvedilol 6.25 MG Oral TabletTAKE 1 TABLET TWICE DAILY WITH MEALS. Digoxin 125 MCG Oral TabletTAKE 1 TABLET BY MOUTH EVERY DAY Eliquis 5 MG Oral Tablettake 1 tablet by mouth twice a day Entresto 24-26 MG Oral Tablettake 1 tablet by mouth twice a day Eszopiclone 3 MG Oral TabletTAKE 1 TABLET AT BEDTIME NEEDED FOR SLEEP. Klor-Con M20 20 MEQ Oral Tablet Extended ReleaseTAKE 1 TABLET DAILY. Levothyroxine Sodium 150 MCG Oral TabletTAKE 1 TABLET DAILY. Magnesium Oxide 400 MG Oral TabletTAKE 1 TABLET BY MOUTH EVERY DAY Myrbetriq 50 MG Oral Tablet Extended Release 24 HourTake 1 tablet daily Oxybutynin Chloride ER 10 MG Oral Tablet Extended Release 24 HourTake 1 tablet daily traZODone HCl - 50 MG Oral TabletTAKE 1 TABLET AT BEDTIME NEEDED FOR SLEEP. Allergies Medication Duragesic-75 PT72 Adverse Reaction; Dizziness; Nausea; Recorded By: Elaina Dang; 11/17/2020 2:54:19 PM Indocin Allergy; Recorded By: Elaina Dang; 11/17/2020 2:54:19 PM Penicillins Allergy; Recorded By: Elaina Dang; 11/17/2020 2:54:19 PM Ambien Allergy; Recorded By: Elaina Dang; 11/17/2020 2:54:19 PM Social History Problems Caffeine use (V49.89) (Z78.9) Coffee 2 cups daily Daily alcohol use 1-2 beers Former smoker (V15.82) (Z87.891) Quit smoking in 1979 No illicit drug use Review of Systems Constitutional: not feeling tired. Cardiovascular: no intermittent leg claudication and as noted in HPI. Respiratory: no cough and no shortness of breath. Gastrointestinal: no change in bowel habits and no blood in stools. Integumentary: no skin rashes. Neurological: no seizures and no frequent falls. All other systems have been reviewed and are negative for com (more content not included)... Normal FRM Study Course Tobacco Screening.on 022 Adult depression screening assessment No [facility] Work Phone: Fall risk assessment b) One or more fall s in the last year [facility] [employer] 250 DO Work Phone: Tobacco use status [facility] b) No [employer] Par[employer] DO Work Phone: Tobacco Screening.on 021 Fall risk assessment b) One or more fall s in the last year [facility] AlegríaRayshawn lauro 250 DO Work Phone: Tobacco use status [facility]PHS b) No [facility] AlegríaRayshawn restrepo 250 DO Work Phone: Coding Summary.on 12-16-2016 Coding Summary. CODING DATE: 017 FINAL [facility] STATUS: Home (Routine DC) PAYOR: Medicare APC DESCRIPTION 5376 Level 6 Urology and Related Services ADMIT DX: REASON FOR VISIT DX: N40.1 Benign prostatic hyperplasia with lower urinary tract symptoms FINAL DX: PRINCIPAL: N40.1 Benign prostatic hyperplasia with lower urinary tract symptoms SECONDARY: R35.0 Frequency of micturition R39.11 Hesitancy of micturition R39.14 Feeling of incomplete bladder emptying R35.1 Nocturia I10 Essential (primary) hypertension E03.9 Hypothyroidism, unspecified Z85.89 Personal history of malignant neoplasm of other organs and systems 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 However, the narrative phrase printed from the coding software may appear abbreviated, or result in slightly different terminology. Coded By: Susana Bynum Date Saved: 12/16/2016 09:56 am Normal [facility] Inpatient Patient Summaryon 12-15-2016 Inpatient Patient Summary [place] [address] Clinical SummaryPerson Information Name: IRINEO WALLIS Age: 76 Years : 1940 12:00 AM Sex: Male PCP: NONE, XXXX Marital Status: Race:White Ethnicity:Non- or Language:Faroese Visit Id: Visit Reason:BPH WITH OBSTRUCTION Speciality: Acuity: Enc Type: Outpatient Med Service: Surgery Arrival:12/15/2016 8:36 AM Discharge: Dispo Type: Address: [address] [place] [id number] Provider Notes: Diagnosis: Problems No Problems Documented Smoking Status: Functional Status:Sensory Deficits: History of Falls: Mobility Assistance Prior to Admission: ADLs: Current Level of Assistance for Self-Care/Mobility: Cognitive Status: Allergies penicillin (Weakness) (Tingling) Duragesic-25 (Unknown) Indocin (Unknown) fentaNYL (Hallucinations) Laboratory or Other Results This Visit (last charted value for your 12/15/2016 visit) No Laboratory or Other Results This Visit Measurements:Height: 167.7 cmWeight: Blood Pressure: Not Valued / Not ValuedBMI: Procedures No Procedures Documented Immunizations No Immunizations Documented This Visit Final Med List:allopurinol 300 Milligram By Mouth every day.bumetanide (bumetanide 1 mg oral tablet) 1 Tabs By Mouth every day.celecoxib (Celebrex) 200 Milligram By Mouth 2 times a day.levothyroxine (Synthroid) 150 Microgram every day.potassium chloride (potassium chloride 20 mEq ER Tab) 1 Tabs By Mouth every day.terazosin (Hytrin) 2 Milligram By Mouth every day. Care Team Members:Attending Physician: Dontrell Good MDonsulting Physician: Referring Physician: Dontrell Good MD Follow up:With: Address: When: Dontrell Good Within 5 to 7 days Patient Education Information: EU - Urolift Discharge Instructions (CUSTOM) [facility] Main OR Intraoperative Recor don 12-15-2016 Main OR Intraoperative Record IntraOp Document Type FTURO Summary Primary Physician: Dontrell Good MD Finalized Date/Time: 12/15/16 09:47:51 Pt. Name: IRINEO WALLIS/Sex: 1940 Male Med Rec #: [id number] Physician: Dontrell Good MD Financial #: [id number] Pt. Type: O Room/Bed: / Admit/Disch: 12/15/16 08:36:09 - Institution: Case Times FTURO Entry 1 Patient Times In Room 12/15/16 09:25:00 Out Room 12/15/16 09:51:00 Procedure Times Start 12/15/16 09:34:00 Stop 12/15/16 09:46:00 Anesthesia Times Last Modified By: Fanta FLORES, LEONARD, Olive 12/15/16 09:46:12 Case Attendance FTURO Entry 1 Entry 2 Entry 3 Case Attendee Fanta FLORES, BARRYOR, Ailin BENJAMIN, Sylwia Good MD, Dontrell Schaefer Role Performed Upholsterer Outside - Primary Scrub - Primary Surgeon - Primary Time In 12/15/16 09:25:00 12/15/16 09:25:00 12/15/16 09:25:00 Time Out 12/15/16 09:51:00 12/15/16 09:51:00 12/15/16 09:51:00 Procedure CYSTOSCOPY LOCAL CYSTOSCOPY LOCAL CYSTOSCOPY LOCAL UROLIFT(.) UROLIFT(.) UROLIFT(.) Comments Last Modified By: Fanta FLORES, BARRYOR, Fanta FLORES, BARRYOR, Fanta FLORES, LEONARD, Olive 12/15/16 Olive 12/15/16 Olive 12/15/16 09:46:13 09:46:13 09:46:13 General Comments: 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 Surgeon Description UROLIFT and cysto Primary Procedure Yes Primary Surgeon Florentino TIDWELL, Dontrell Roe Start 12/15/16 09:34:00 Stop 12/15/16 09:46:00 Anesthesia Type Local Surgical Service Urology Wound Class 2 - Clean-Contaminated Last Modified By: LEONARD Jewell RN, Ruthann 12/15/16 09:46:15 General Case Data FTURO Pre-Care Text: Classifies surgical wound, implements aseptic technique, initiates traffic control Entry 1 Case Information OR URO 1 FT Case Level None Wound Class 2 - Clean-Contaminated Specialty Urology Preop Diagnosis BPH WITH OBSTRUCTION Postop Same As Preop Yes Postop Diagnosis BPH WITH OBSTRUCTION Outcomes Met? Yes Last Modified By: LEONARD Jewell RN, Olive 12/15/16 07:45:32 Post-Care Text: The patient is free from signs and symptoms of infection EU IntraOp - FTURO Pre-Care Text: Implements protective measures prior to operative or invasive procedure, confirms identity before the operative or invasive procedure, verifies operative procedure, surgical site, and laterality Entry 1 EU Perioperative Protocols Procedure(s) CYSTOSCOPY LOCAL Patient Identity Birthday, ID Band UROLIFT(.) Verified (select at Check, Patient least 2): Participation Consents / H and P HandP, Surgery/Procedure Operative Site N/A Verified Consent Marking Verified Surgical Site Yes Laterality Verified n/a Verified Procedure Verified Yes Correct Patient Yes Position Verified Availability Equipment, Implant, Time Out LEONARD Jewell RN, Verified (If Medication Participants Ailin Schaefer [facility], Ana Applicable) Florentino Byrd MD, Dontrell Roe Time Out Complete 12/15/16 09:33:00 Allergies Reviewed? Yes Allergies Reviewed Self/Patient With Body Position Low Lithotomy Prep Area penis Prep Agents Betadine Solution Skin. Condition Intact Additional None Specimens Collected Vitals - EU Blood Pressure 102/65 Pulse 77 bpm Respirations SPO2 EBL 0 IandO - EU Total Intake 0 mL Total Output 0 mL Outcomes Met? Yes Last Modified By: LEONARD Jewell RN, Ruthann 12/15/16 09:39:33 Post-Care Text: The patient is free from signs and symptoms of injury caused by extraneous objects Implant Log FTURO Pre-Care Text: Records devices implanted during the operative or invasive procedure Entry 1 Entry 2 Entry 3 Implant/Explant Implant Implant Implant Implant Identification Description urolift urolift urolift Serial Number [id number] Lot Number [id number] Cotton Tipper neotract neotract neotract Catalog ?# Size Expiration Date 03/18/18 05/04/18 04/28/18 Usage Data Implant Site Quantity 1 1 2 Temperature Reconstitution Method Outcomes Met? Yes Yes Yes Last Modified By: LEONARD Jewell RN, LEONARD Jewell RN, LEONARD Jewell RN, Ruthann 12/15/16 Olive 12/15/16 Olive 12/15/16 09:45:31 09:45:31 09:45:31 Post-Care Text: The patient is free from signs and symptoms of injury caused by extraneous objects Case Comments Finalized By: LEONARD Jewell RN, Ruthann Document Signatures Signed By: LEONARD Jewell RN, Ruthann 12/15/16 09:46 LEONARD Jewell RN, Ruthann 12/15/16 09:47 Normal [facility] Main OR Preoperative Recordo n 12-15-2016 Main OR Preoperative Record Holding Area Document Type FTURO Summary Primary Physician: Dontrell Good MD Finalized Date/Time: 12/15/16 09:34:53 Pt. Name: IRINEO WALLIS /Sex: 1940 Male Med Rec #: [id number] Physician: Dontrell Good MD Financial #: [id number] Pt. Type: O Room/Bed: / Admit/Disch: 12/15/16 08:36:09 - Institution: Case Times Holding FTURO Pre-Care Text: Verifies consent for planned procedure, identifies individual values and wishes concerning care, includes family members in perioperative teaching Secures patient's records' belongings, and valuables, maintains patient's dignity and privacy, and maintains patient confidentiality Entry 1 In Holding 12/15/16 09:08:00 Outcomes Met? Yes Last Modified By: Ingris Goel 12/15/16 09:08:07 Post-Care Text: The patient participates in decisions affecting his or her perioperative plan of care The patient's right to privacy is maintained Surgery Checklist FTURO Entry 1 Patient Birthday, ID Band Procedure Surgical Consent, With Identification: Check, Patient Verification: Patient Participation NPO after Midnight: No Date/Time: 12/15/16 09:08:00 Personal Items: Glasses Complaints of Pain: No Skin Integrity Intact, [place], Warm, & Dry Vitals - EU Blood Pressure 107/68 Pulse 78 bpm Respirations 16 br/min SPO2 Additional None RN Reviewed Yes Specimens Collected Last Modified By: LEONARD Jewell RN, Ruthann 12/15/16 09:30:48 Finalized By: LEONARD Jewell RN, Ruthann Document Signatures Signed By: LEONARD Jewell RN, Ruthann 12/15/16 09:30 Ingris Goel 12/15/16 09:09 LEONARD Jewell RN, Ruthann 12/15/16 09:34 Normal [facility] Operative Reporton Operative Report Patient: LEAH WALLIS Age: 76 years Sex: Male : 1940 Associated Diagnoses: None Author: Dontrell Good MD Procedure Operative Information Details: Date/ Time: 12/15/16 09:49:00. Pre-Op Dx: BPH w/ LUTS - N40.1. Post-Op Dx: Same. Anesthesia Type: Local. Procedure: Cystoscopy with UroLift Prostatic Urethral Lift. Complications: None. Risks/Benefits/Informed Consent: Surgical risks, benefits, details of the procedure have been explained to the patient, Full informed consent has been obtained. Intraoperative Information Prepped: Patient received 1 hour prior to procedure (10 mg diazepam, 5/325 mg of [place]), Local Anesthesia (60cc 2% Xylocaine liquid inserted into bladder, 20cc Xylocaine 2% jelly inserted into urethra, Penile clamp applied for 20 min dwell prior to procedure with patient in sitting position). Procedure: A 20F cystoscope was inserted into the bladder, The cystoscopy bridge was replaced with a UroLift delivery device, The first treatment site was the patient's left side approximately 1.5 cm distal to the bladder neck, The distal tip of the delivery device was then angled laterally approximately 20 degrees at this position to compress the lateral lobe, The trigger was pulled, thereby deploying a needle containing the implant through the prostate, The needle was then retracted, allowing one end of the implant to be delivered to the capsular surface of the prostate, The implant was then tensioned to assure capsular seating and removal of slack monofilament, The device was then angled back toward midline and slowly advanced proximally (typically 3-4mm) until cystoscopic verification of the monofilament being centered in the delivery bay, The urethral end piece was then affixed to the monofilament thereby tailoring the size of the implant, Excess filament was then severed, The delivery device was then readvanced into the bladder, The delivery device was then replaced with cystoscope and bridge and the implant location and opening effect was confirmed cystoscopically, The same procedure was then repeated on the right side, Two additional implants were delivered just proximal to the veru montanum, again one on right and one on left side of the prostate, following the same technique, A final cystoscopy was conducted first to inspect the location and state of each implant, And second, to confirm the presence of a continuous anterior channel was present through the prostatic urethra with irrigation flow turned off, All instruments were removed, The patient was then allowed to sit up. Specimens Removed: None. Devices Implanted: 4 Urolift implants. Postoperative Information Discharge: The patient tolerated the procedure well and was subsequently discharged home. [facility] Comment on above: Result Comment: Elec tronically Signed By: Florentino TIDWELL, Dontrell Malonebr\Date and Time Signed: 12/15/16 09:49 EDT Vital Signs Date Time Vital Sign Value Performing Clinician Facility 09-15-2022 09:15-0400 Body height 167.64 cm Feliciano Ga Other [employer] Other 09-15-2022 09:15-0400 Body mass index (BMI) [Ratio] 28.11 kg/m2 Feliciano Ga Other [employer] Other 09-15-2022 09:15-0400 Body weight 79.02 kg Feliciano Ga Other [employer] Other 09-15-2022 09:15-0400 Diastolic blood pressure 70 mm[Hg] Feliciano Ga Other [employer] Other 09-15-2022 09:15-0400 Respiratory rate 16 /min Feliciano Ga Other [employer] Other 09-15-2022 09:15-0400 SaO2% (BldA) [Mass fraction] 96 % Feliciano Ga Other [employer] Other 09-15-2022 09:15-0400 Systolic blood pressure 112 mm[Hg] Feliciano aG Other [employer] Other 07-07-2022 09:36-0400 Body height 167.64 cm Feliciano Ga Work Phone: [facility] 250 DO Work Phone: 07-07-2022 09:36-0400 Body mass index (BMI) [Ratio] 28.89 kg/m2 Felicianoamadou Ga Work Phone: [facility] 250 DO Work Phone: 07-07-2022 09:36-0400 Body surface area Derived from formula 1.91 m2 Felicianoamadou Ga Work Phone: [facility] 250 DO Work Phone: 07-07-2022 09:36-0400 Body weight 81.19 kg Felicianoamadou Ga Work Phone: [facility] 250 DO Work Phone: 07-07-2022 09:36-0400 Diastolic blood pressure 84 mm[Hg] Feliciano Louis Ga Work Phone: [facility] 250 DO Work Phone: 07-07-2022 09:36-0400 Heart rate 76 /min Felicianoamadou Ga Work Phone: [facility] 250 DO Work Phone: 07-07-2022 09:36-0400 Systolic blood pressure 128 mm[Hg] Felicianoamadou Ga Work Phone: [facility] [employer] 250 DO Work Phone: 06-07-2022 10:15-0400 Body height 167.64 cm Feliciano aG Other [facility] [employer] Other 06-07-2022 10:15-0400 Body mass index (BMI) [Ratio] 29.7 kg/m2 Feliciano Ga Other [facility] [employer] Other 06-07-2022 10:15-0400 Body weight 83.46 kg Feliciano Ga Other [facility] [employer] Other 06-07-2022 10:15-0400 Diastolic blood pressure 60 mm[Hg] Feliciano Tjcatie Other [employer] Other 06-07-2022 10:15-0400 Respiratory rate 16 /min Feliciano Tjcatie Other [employer] Other 06-07-2022 10:15-0400 SaO2% (BldA) [Mass fraction] 96 % Feliciano Tjcatie Other [facility] [employer] Other 06-07-2022 10:15-0400 Systolic blood pressure 120 mm[Hg] Feliciano Ga Other [facility] [employer] Other 03-10-2022 14:47-0500 Body height 167.64 cm Feliciano Louis Ga Work Phone: [employer] 250 DO Work Phone: 03-10-2022 14:47-0500 Body mass index (BMI) [Ratio] 30.18 kg/m2 Feliciano Louis Ga [facility] 250 DO Work Phone: 03-10-2022 14:47-0500 Body surface area Derived from formula 1.94 m2 Feliciano Louis Ga Work Phone: [employer] 250 DO Work Phone: 03-10-2022 14:47-0500 Body weight 84.82 kg Feliciano Louis Ga [facility] [place] 250 DO Work Phone: 03-10-2022 14:47-0500 Diastolic blood pressure 90 mm[Hg] Feliciano Myers Harmeet Work Phone: [facility] [place] 250 DO Work Phone: 03-10-2022 14:47-0500 Heart rate 72 /min Feliciano Spencercatie Work Phone: [facility] 250 DO Work Phone: 03-10-2022 14:47-0500 Systolic blood pressure 128 mm[Hg] Feliciano Spencercatie Work Phone: [facility] 250 DO Work Phone: 03-09-2022 13:30-0500 Body height 142.24 cm Feliciano Ga Other [employer] Other 03-09-2022 13:30-0500 Body mass index (BMI) [Ratio] 42.82 kg/m2 Feliciano Ga Other [employer] Other 03-09-2022 13:30-0500 Body weight 86.64 kg Feliciano Ga Other [employer] Other 03-09-2022 13:30-0500 Diastolic blood pressure 78 mm[Hg] Feliciano Ga Other [employer] Other 03-09-2022 13:30-0500 Respiratory rate 16 /min Feliciano Ga Other [employer] Other 03-09-2022 13:30-0500 SaO2% (BldA) [Mass fraction] 96 % Feliciano Ga Other [employer] Other 03-09-2022 13:30-0500 Systolic blood pressure 136 mm[Hg] Feliciano Ga Other [employer] Other 02-09-2022 15:45-0500 Body height 142.24 cm Feliciano Ga Other [employer] Other 02-09-2022 15:45-0500 Body mass index (BMI) [Ratio] 44.92 kg/m2 Felicianoamadou Spencercatie Other [employer] Other 02-09-2022 15:45-0500 Body weight 90.9 kg Feliciano Ga Other [employer] Other 02-09-2022 15:45-0500 Diastolic blood pressure 83 mm[Hg] Feliciano Ga Other [employer] Other 02-09-2022 15:45-0500 Respiratory rate 16 /min Feliciano Spencercatie Other [employer] Other 02-09-2022 15:45-0500 SaO2% (BldA) [Mass fraction] 98 % Feliciano Spencercatie Other [employer] Other 02-09-2022 15:45-0500 Systolic blood pressure 124 mm[Hg] Feliciano Harmeet Other [employer] Other 01-16-2022 11:37-0500 Body temperature 98.1 [degF] DO Feliciano Ga Work Phone: [facility] 01-16-2022 11:37-0500 Diastolic blood pressure 71 mm[Hg] DO Felicianoamadou Spencers Work Phone: [facility] 01-16-2022 11:37-0500 Heart rate 79 /min DO Feliciano Tjs Work Phone: [facility] 01-16-2022 11:37-0500 Respiratory rate 16 /min DO Felicianoamadou Spencers Work Phone: [facility] 01-16-2022 11:37-0500 SaO2% (BldA) [Mass fraction] 97 % DO Feliciano Ga Work Phone: [facility] 01-16-2022 11:37-0500 Systolic blood pressure 124 mm[Hg] DO Feliciano Tjs Work Phone: [facility] 01-16-2022 04:10-0500 Body weight 90.5 kg DO Feliciano Ga Work Phone: [facility] 01-13-2022 16:00-0500 Inhaled oxygen flow rate 1 L/min DO Feliciano Spencers Work Phone: [facility] 01-11-2022 13:55-0500 Body height 167.64 cm DO Feliciano Ga Work Phone: [facility] 01-09-2022 14:00-0400 Diastolic blood pressure 74 mm[Hg] DO Feliciano Ga Work Phone: [facility] 01-09-2022 14:00-0400 Heart rate 67 /min DO Feliciano Ga Work Phone: [facility] 01-09-2022 14:00-0400 Inhaled oxygen flow rate 3 L/min DO Feliciano Ga Work Phone: [facility] 01-09-2022 14:00-0400 Respiratory rate 19 /min DO Feliciano Ga Work Phone: [facility] 01-09-2022 14:00-0400 SaO2% (BldA) [Mass fraction] 99 % DO Feliciano Ga Work Phone: [facility] 01-09-2022 14:00-0400 Systolic blood pressure 145 mm[Hg] DO Feliciano Tjs Work Phone: [facility] 01-09-2022 09:41-0400 Body temperature 97.2 [degF] DO Felicianoamadou Spencers Work Phone: [facility] 01-09-2022 09:38-0400 Body height 167.64 cm DO Feliciano Ga Work Phone: [facility] 01-09-2022 09:38-0400 Body weight 96 kg DO Feliciano Ga Work Phone: [facility] 01-07-2022 13:45-0400 Body height 142.24 cm Feliciano Ga Other [facility] [employer] Other 01-07-2022 13:45-0400 Body mass index (BMI) [Ratio] 48.42 kg/m2 Feliciano Ga Other [employer] Other 01-07-2022 13:45-0400 Body weight 97.98 kg Feliciano Ga Other [employer] Other 01-07-2022 13:45-0400 Diastolic blood pressure 62 mm[Hg] Feliciano Ga Other [employer] Other 01-07-2022 13:45-0400 Respiratory rate 16 /min Felicianoamadou Ga Other [employer] Other 01-07-2022 13:45-0400 SaO2% (BldA) [Mass fraction] 94 % Feliciano Ga Other [employer] Other 01-07-2022 13:45-0400 Systolic blood pressure 122 mm[Hg] Feliciano Ga Other [employer] Other 10-12-2021 09:00-0400 Body height Feliciano Ga Other [employer] Other 10-12-2021 09:00-0400 Body mass index (BMI) [Ratio] 32.83 kg/m2 Feliciano Harmeet Other [employer] Other 10-12-2021 09:00-0400 Body weight 92.26 kg Feliciano Harmeet Other [employer] Other 10-12-2021 09:00-0400 Diastolic blood pressure 54 mm[Hg] Feliciano Ga Other [employer] Other 10-12-2021 09:00-0400 Respiratory rate 16 /min Feliciano Ga Other [employer] Other 10-12-2021 09:00-0400 SaO2% (BldA) [Mass fraction] 95 % Feliciano Ga Other [employer] Other 10-12-2021 09:00-0400 Systolic blood pressure 110 mm[Hg] Feliciano Ga Other [employer] Other 09-11-2021 10:00-0400 Body height Feliciano Harmeet Other [employer] Other 09-11-2021 10:00-0400 Diastolic blood pressure 52 mm[Hg] Feliciano Ga Other [employer] Other 09-11-2021 10:00-0400 Respiratory rate 16 /min Feliciano Ga Other [employer] Other 09-11-2021 10:00-0400 SaO2% (BldA) [Mass fraction] 96 % Feliciano Ga Other [employer] Other 09-11-2021 10:00-0400 Systolic blood pressure 102 mm[Hg] Feliciano Ga Other [facility] [employer] Other 08-31-2021 12:00-0400 Body height Feliciano Ga Other [facility] [employer] Other 08-31-2021 12:00-0400 Diastolic blood pressure 70 mm[Hg] Feliciano Harmeet Other [facility] [employer] Other 08-31-2021 12:00-0400 Systolic blood pressure 130 mm[Hg] Feliciano Harmeet Other [facility] [employer] Other 08-04-2021 14:17-0400 Body height 167.64 cm Felicianoamadou Ga Work Phone: [facility] 250 DO Work Phone: 08-04-2021 14:17-0400 Body mass index (BMI) [Ratio] 33.09 kg/m2 Feliciano Ga Work Phone: [facility] 250 DO Work Phone: 08-04-2021 14:17-0400 Body surface area Derived from formula 2.02 m2 Felicianoamadou Ga Work Phone: [facility] 250 DO Work Phone: 08-04-2021 14:17-0400 Body weight 92.99 kg Feliciano Louis Ga Work Phone: [facility] 250 DO Work Phone: 08-04-2021 14:17-0400 Diastolic blood pressure 56 mm[Hg] Feliciano Myers Tjs Work Phone: [facility] 250 DO Work Phone: 08-04-2021 14:17-0400 Heart rate 54 /min Feliciano Spencers Work Phone: [facility] 250 DO Work Phone: 08-04-2021 14:17-0400 Systolic blood pressure 108 mm[Hg] Feliciano Ga Work Phone: [facility] [place] 250 DO Work Phone: 01-19-2021 09:30-0500 Body height Feliciano Ga Other [employer] Other 01-19-2021 09:30-0500 Body mass index (BMI) [Ratio] 33.67 kg/m2 Feliciano Ga Other [employer] Other 01-19-2021 09:30-0500 Body weight 94.62 kg Feliciano Ga Other [employer] Other 01-19-2021 09:30-0500 Diastolic blood pressure 62 mm[Hg] Feliciano Ga Other [employer] Other 01-19-2021 09:30-0500 Respiratory rate 16 /min Feliciano Ga Other [employer] Other 01-19-2021 09:30-0500 SaO2% (BldA) [Mass fraction] 96 % Feliciano Ga Other [employer] Other 01-19-2021 09:30-0500 Systolic blood pressure 116 mm[Hg] Feliciano Ga Other [employer] Other 01-05-2021 15:22-0400 Body height 167.64 cm Feliciano Ga Work Phone: [facility] [place] 250 DO Work Phone: 01-05-2021 15:22-0400 Body mass index (BMI) [Ratio] 33.25 kg/m2 Feliciano Ga Work Phone: [facility] 250 DO Work Phone: 01-05-2021 15:22-0400 Body surface area Derived from formula 2.03 m2 Feliciano Ga Work Phone: [facility] 250 DO Work Phone: 01-05-2021 15:22-0400 Body weight 93.44 kg Feliciano Ga Work Phone: [facility] 250 DO Work Phone: 01-05-2021 15:22-0400 Diastolic blood pressure 84 mm[Hg] Feliciano Ga Work Phone: [facility] 250 DO Work Phone: 01-05-2021 15:22-0400 Heart rate 56 /min Feliciano Ga Work Phone: [facility] 250 DO Work Phone: 01-05-2021 15:22-0400 Systolic blood pressure 126 mm[Hg] Feliciano Ga Work Phone: [facility] 250 DO Work Phone: Encounters Encounter Date Encounter Type Care Provider Facility Start: 01-10-2023 End: 01-11-2023 ambulatory Diana Price MD Facility: [facility] Start: 12-31-2022 End: 12-31-2022 ambulatory Feliciano Ga Other [employer] Other Start: 12-31-2022 Telephone encounter Feliciano Ga [facility] Start: 12-06-2022 End: 12-06-2022 ambulatory Feliciano Ga Other [employer] Other Start: 12-06-2022 Telephone encounter Feliciano Ga [facility] [place] Start: 11-30-2022 End: 11-30-2022 ambulatory Feliciano Spencercatie Other [employer] Other Start: 11-30-2022 Telephone encounter Feliciano Ga [facility] [place] Start: 10-14-2022 ambulatory DOMINIC WALLACE Dane Facili ty:[facility] Start: 09-15-2022 End: 09-15-2022 ambulatory Feliciano Tjcatie Other [employer] Other Start: 09-15-2022 Office outpatient visit 15 minutes Feliciano Ga [facility] [place] Start: 09-10-2022 Chart Update Feliciano Ga Work Phone: [facility] 250 DO Work Phone: Start: 09-08-2022 Telephone encounter Felicianoamadou Spencercatie [facility] [place] Start: 09-08-2022 End: 09-08-2022 ambulatory Feliciano Ga Facility:[facility] Start: 09-08-2022 End: 09-08-2022 ambulatory DO Feliciano Ga Work Phone: [facility] Work Phone: Start: 09-08-2022 End: 09-08-2022 Patient encounter procedure DO Feliciano Ga Work Phone: [facility] [place] Work Phone: Start: 08-30-2022 Rx Renewal [facility] Work Phone: Start: 07-08-2022 End: 07-09-2022 ambulatory YANNI CAICEDO . Facility: Start: 07-07-2022 Office outpatient visit 15 minutes Feliciano Ga Work Phone: [facility] 250 DO Work Phone: Start: 07-07-[address] Feliciano Ga Facility: Start: 06-07-2022 End: 06-07-2022 ambulatory Feliciano Ga Other [employer] Other Start: 06-07-2022 Office outpatient visit 25 minutes Feliciano Ga [facility] [place] Start: 06-01-2022 End: 06-01-2022 ambulatory Feliciano Ga Other [employer] Other Start: 06-01-2022 Telephone encounter Feliciano Ga [facility] [place] Start: 05-13-2022 End: 05-14-2022 ambulatory EDILMA MANDEL Facility:[facility] Start: 05-11-2022 End: 05-11-2022 ambulatory Feliciano Ga Other [employer] Other Start: 05-11-2022 [facility] Start: 04-15-2022 End: 04-16-[address] TROY BRAMBILA . Facility: Start: 04-12-2022 End: 04-12-2022 ambulatory Feliciano Ga Facility:[facility] Start: 04-12-2022 End: 04-12-2022 ambulatory DO Feliciano Ga Work Phone: [facility] Work Phone: Start: 04-12-2022 End: 04-12-2022 Discharged Recurring DO Feliciano Ga Work Phone: [facility] [place] Work Phone: Start: 03-30-2022 End: 03-30-[address] TROY BRAMBILA . Facility:[facility] Start: 03-29-2022 Rx Renewal Feliciano Ga Work Phone: [facility] 250 DO Work Phone: Start: 03-19-2022 ambulatory Marv Drew Facility : Start: 03-15-2022 ambulatory Ms. Enedelia Carlin Jaswinder Gomez Facility: Start: 03-15-2022 Patient encounter procedure Feliciano Ga Work Phone: [facility] 250 DO Work Phone: Start: 03-15-2022 Chart Update Feliciano Ga Work Phone: [facility] 250 DO Work Phone: Start: 03-11-2022 End: 03-11-2022 ambulatory Feliciano Tjcatie Facility:[facility] Start: 03-11-2022 Registered Recurring DO Feliciano Ga Work Phone: [facility] [place] Work Phone: Start: 03-11-2022 End: 03-11-2022 ambulatory DO Feliciano Ga Work Phone: [facility] Work Phone: Start: 03-11-2022 End: 03-11-2022 Patient encounter procedure DO Feliciano Ga Work Phone: [facility] [place] Work Phone: Start: 03-10-2022 FUV, Provider: Enedelia Mix, Status: Pen, Time: 2:30 PM Feliciano Louis Ga Work Phone: [facility] 250 DO Work Phone: Start: 03-10-2022 Office outpatient visit 25 minutes Felicianoamadou Spencers Work Phone: [facility] 600 DO Work Phone: Start: 03-10-2022 Patient encounter procedure Felicianoamadou Spencers Work Phone: [facility] 250 DO Work Phone: Start: 03-10-2022 ambulatory Ms. Enedelia Gomez Facility: Start: 03-09-2022 End: 03-09-2022 ambulatory Feliciano Ga Other [employer] Other Start: 03-09-2022 Office outpatient visit 15 minutes Feliciano Ga [facility] [place] Start: 03-04-2022 End: 03-04-2022 ambulatory Feliciano Ga Other [employer] Other Start: 03-04-2022 Telephone encounter Feliciano Ga [facility] [place] Start: 03-03-2022 Rx Renewal Feliciano Ga Work Phone: [facility] 250 DO Work Phone: Start: 03-03-2022 End: 03-03-2022 ambulatory Feliciano Ga Other [employer] Other Start: 03-03-2022 Telephone encounter Feliciano Ga [facility] [place] Start: 02-18-2022 End: 02-19-[address] TROY BRAMBILA . Facility: Start: 02-15-2022 Rx Renewal Feliciaon Ga Work Phone: [facility] 250 DO Work Phone: Start: 02-09-2022 End: 02-09-2022 ambulatory Feliciano Ga Other [employer] Other Start: 02-09-2022 Office outpatient visit 25 minutes Feliciano Ga [facility] [place] Start: 01-13-2022 End: 01-13-2022 ambulatory Feliciano Ga Other [employer] Other Start: 01-13-2022 Telephone encounter Feliciano Ga [facility] Family [facility] [place] Start: 01-12-[address] Feliciano Ga Facility:[id number] Start: 01-11-2022 ambulatory Marv Drew Facility :[id number] Start: 01-10-[address] Feliciano Ga Facility:[id number] Start: 01-09-2022 End: 01-16-2022 Evaluation and management of inpatient Feliciano Ga Facility:[facility] Start: 01-09-2022 End: 01-16-2022 Evaluation and management of inpatient DO Feliciano Ga Work Phone: [facility] [place] [facility] Start: 01-07-2022 End: 01-07-2022 ambulatory Feliciano Ga Other [employer] Other Start: 01-07-2022 Office outpatient visit 25 minutes Feliciano Ga [facility] Start: 12-25-2021 End: 12-25-2021 ambulatory Feliciano Ga Other [employer] Other Start: 12-25-2021 Telephone encounter Feliciano Ga [facility] Start: 12-17-2021 End: 12-18-[address] TROY BRAMBILA . Facility:[facility] Start: 12-17-2021 End: 12-17-2021 ambulatory DO Feliciano Ga Work Phone: [facility] Work Phone: Start: 12-17-2021 End: 12-17-2021 Patient encounter procedure DO Feliciano Ga Work Phone: [facility] [place] Start: 12-01-2021 End: 12-01-[address] TROY BRAMBILA . Facility:[facility] Start: 11-12-2021 End: 11-13-[address] NELSY GA Facility:[facility] Start: 10-12-2021 End: 10-12-2021 ambulatory Feliciano Ga Other [employer] Other Start: 10-12-2021 Office outpatient visit 15 minutes Feliciano Ga [facility] [place] Start: 09-28-2021 Telephone encounter Feliciano Ga [facility] [place] Start: 09-28-2021 End: 09-28-2021 ambulatory Monserrat Rodarte [facility] [employer] Other Start: 09-28-2021 End: 09-28-2021 Discharged Recurring DO Feliciano Ga Work Phone: [facility] [place] Start: 09-11-2021 End: 09-11-2021 ambulatory Feliciano Ga Other [employer] Other Start: 09-11-2021 Nursing evaluation o f patient and report Feliciano Ga [facility] [place] Start: 09-10-2021 Telephone encounter Feliciano Ga [facility] [place] Start: 09-10-2021 End: 09-11-[address] NELSY GA [facility] [employer] Other Start: 09-04-2021 End: 09-04-2021 ambulatory Feliciano Ga Other [employer] Other Start: 09-04-2021 Telephone encounter Feliciano Ga [facility] [place] Start: 08-31-2021 End: 08-31-2021 ambulatory Feliciano Ga Other [employer] Other Start: 08-31-2021 Office outpatient visit 25 minutes Feliciano Ga [facility] [place] Start: 08-17-2021 End: 08-18-[address] TROY BRAMBILA . Facility:[facility] Start: 08-13-2021 End: 08-14-[address] TROY BRAMBILA . Facility:[facility] Start: 08-04-2021 Office outpatient visit 15 minutes Feliciano Ga Work Phone: [facility] 250 DO Work Phone: Start: 08-04-[address] Feliciano Ga Facility: Start: 07-28-2021 End: 07-28-[address] TROY BRAMBILA . Facility:[facility] Start: 05-25-2021 End: 05-25-2021 ambulatory Feliciano Ga Other [employer] Other Start: 05-25-2021 Telephone encounter Feliciano Ga [facility] Start: 03-23-2021 Rx Renewal Feliciano Ga Work Phone: [facility] DO Work Phone: Start: 03-11-2021 End: 03-11-2021 ambulatory Feliciano Ga Other [employer] Other Start: 03-11-2021 Telephone encounter Feliciano Ga [facility] Start: 03-05-2021 End: 03-05-2021 ambulatory Feliciano Ga Other [employer] Other Start: 03-05-2021 Telephone encounter Feliciano Ga [facility] Start: 02-17-2021 Rx Renewal Feliciano Ga Work Phone: [facility] DO Work Phone: Start: 01-19-2021 End: 01-19-2021 ambulatory Feliciano Ga Other [employer] Other Start: 01-19-2021 Office outpatient visit 25 minutes Feliciano Ga [facility] Start: 01-16-2021 Rx Renewal Feliciano Ga Work Phone: [facility] DO Work Phone: Start: 01-13-2021 Rx Renewal Feliciano Ga Work Phone: [facility] [place] Work Phone: Start: 01-05-2021 Office outpatient visit 15 minutes Feliciano Ga Work Phone: [facility] DO Work Phone: Start: 01-05-2021 Patient encounter procedure Feliciano Ga Work Phone: [facility] DO Work Phone: Start: 12-15-2016 End: 12-16-2016 Ambulatory [facility] Facility:[facility] Procedures Date Procedure Procedure Detail Performing Clinician Start: 01-14-2022 CT of right hip DO Daniella Ga Work Phone: Start: 01-13-2022 Plain X-ray of right hip DO Feliciano Ga Work Phone: Start: 01-13-2022 Urine culture DO Feliciano Ga Work Phone: Start: 01-12-2022 Blood culture for ba cteria, including anaerobic screen DO Feliciano Ga Work Phone: Start: 01-12-2022 Plain chest X-ray DO Elizabeth Ga Work Phone: Start: 01-12-2022 MRI of lumbar spine with contrast DO Feliciano Ga Work Phone: Start: 01-10-2022 Doppler ultrasonogra phy of bilateral carotid arteries DO Feliciano Ga Work Phone: Start: 01-10-2022 Ultrasonography of b ilateral kidneys DO Feliciano Ga Work Phone: Start: 01-09-2022 SARS Antigen (LFIA) DO Felicianoamadou Ga Work Phone: Start: 01-09-2022 Plain chest X-ray DO Elizabeth Ga Work Phone: Start: 01-09-2022 Computed tomography of thoracic spine without contrast DO Feliciano Ga Work Phone: Start: 01-09-2022 CT cervical spine wi thout contrast DO Feliciano Ga Work Phone: Start: 01-09-2022 CT of head without contrast DO Feliciano Ga Work Phone: Start: 01-09-2022 CT of lumbar spine w ithout contrast DO Feliciano Ga Work Phone: Start: 03-07-2018 Total colonoscopy Feliciano Ga Work Phone: Comment on above: [facility]; Arthroplasty of knee Feliciano P Harmeet Work Phone: Comment on above: 2016 and 2020; Arthroscopy of shoulder Bryandrés n P [employer]js Work Phone: Cardiac catheterization Brya n P Tjs Work Phone: Epidural steroid injection B molly Louis Ga Work Phone: Procedure on back Feliciano P Ku ns Work Phone: Procedure on neck Feliciano P Ku ns Work Phone: Procedure on prostate Feliciano P Harmeet Work Phone: Prosthetic arthropla sty of the hip Feliciano P Harmeet Work Phone: Total replacement of hip Edmond an P Harmeet Work Phone: Urine culture DO Feliciano Ga Work Phone: Plan of Treatment Date Care Activity Detail Author Start: 07-13-2023 FUV, Provider: Irineo Mcintyre, Status: Pen, Time: 9:40 AM FUV, Provider: Irineo Mcintyre, Status: Pen, Time: 9:40 AM [facility] DO Work Phone: Start: 07-07-2022 FUV, Provider: Irineo Mcintyre, Status: Pen, Time: 9:20 AM FUV, Provider: Irineo Mcintyre, Status: Pen, Time: 9:20 AM [facility] DO Work Phone: Start: 03-15-2022 FABI DOMINGUEZ, Provider : LEVAR MARES NATIONAL SALES MANAGER 1,[id number], Status: Pen, Time: 10:30 AM HOLTER MON, Provider: LEVAR [id number] NATIONAL SALES MANAGER 1,[id number], Status: Pen, Time: 10:30 AM [facility] DO Work Phone: Start: 03-10-2022 FUV, Provider: Enedelia Mix, Status: Pen, Time: 2:30 PM FUV, Provider: Enedelia Mix, Status: Pen, Time: 2:30 PM [facility] DO Work Phone: Start: 01-16-2022 [facility] Start: 01-12-2022 Referral to infectio us diseases physician [facility] Start: 01-09-2022 Referral to neurologist [facility] Start: 01-09-2022 Referral to Receptionist Clerk [facility] Start: 01-09-2022 Hospital admission [facility] Start: 01-09-2022 [facility] Start: 07-08-2021 FUV, Provider: Irineo Mcintyre, Status: Pen, Time: 9:50 AM [facility] 250 DO Work Phone: Start: 06-16-2021 FUV, Provider: Irineo Mcintyre, Status: Pen, Time: 9:30 AM FUV, Provider: Irineo Mcintyre, Status: Pen, Time: 9:30 AM [facility] 250 DO Work Phone: Anion gap measurement [facility] Work Phone: Bacteria identified in Urine by Culture Urine Culture [facility] Basophil count [facility] Work Phone: Basophil percent differential count [facility] Work Phone: Blood culture for bacteria, including anaerobic screen Blood Culture [facility] Calcium [Mass/volume ] in Serum or Plasma [facility] Work Phone: Carbon dioxide, tota l [Moles/volume] in Serum or Plasma [facility] Work Phone: Chloride [Moles/volu me] in Serum or Plasma [facility] Work Phone: Creatinine and Glome rular filtration rate.predicted panel - Serum, Plasma or Blood [facility] Work Phone: Eosinophil percent differential count [facility] Work Phone: Eosinophils [#/volum e] in Blood [facility] Work Phone: Erythrocyte mean corpuscular volume determination [facility] Work Phone: Erythrocytes [#/volu me] in Blood [facility] Work Phone: Glucose [Mass/volume ] in Serum or Plasma [facility] Work Phone: Hematocrit [Volume Fraction] of Blood [facility] Work Phone: Hemoglobin [Mass/vol ume] in Blood [facility] Work Phone: Hemoglobin distribut ion, width determination [facility] Work Phone: Leukocytes [#/volume ] in Blood [facility] Work Phone: Lymphocyte count [facility] Work Phone: Lymphocyte percent differential count [facility] Work Phone: Mean corpuscular hemoglobin concentration determination [facility] Work Phone: Mean corpuscular hemoglobin determination [facility] Work Phone: Measurement of renal function [facility] Work Phone: Monocyte count [facility] Work Phone: Monocyte percent differential count [facility] Work Phone: Neutrophil count [facility] Work Phone: Neutrophil percent differential count [facility] Work Phone: Patient referral [facility] Work Phone: Platelet mean volume determination [facility] Work Phone: Platelets [#/volume] in Blood [facility] Work Phone: Potassium [Moles/vol ume] in Serum or Plasma [facility] Work Phone: Sodium [Moles/volume ] in Serum or Plasma [facility] Work Phone: Urea nitrogen [Mass/volume] in Serum or Plasma [facility] Work Phone: Immunizations Immunization Date Immunization Notes Care Provider Chelsi calle 12-17-2022 influenza, high dose seasonal, preservative-free Feliciano Ga Other [employer] Other 12-24-2021 influenza, seasonal, injectable Feliciano Ga Other [employer] Other 12-24-2021 COVID-19 Moderna (BIvalent) Feliciano Ga Other [employer] Other 12-24-2021 Fluzone High-Dose Quadrivalent 0.7 ML Intramuscular Suspension Prefilled Syringe Feliciano Ga Work Phone: [facility] [employer] 250 DO Work Phone: 02-18-2021 Moderna COVID-19 Vaccine 100 MCG/0.5ML Intramuscular Suspension Feliciano Ga Work Phone: [facility] [employer] 250 DO Work Phone: 05-28-2020 Moderna COVID-19 Vaccine 100 MCG/0.5ML Intramuscular Suspension [facility] Work Phone: 05-05-2020 COVID-19 Vaccine Moderna - Documentation Purposes Only Feliciano Ga Other [employer] Other 04-30-2020 Moderna COVID-19 Vaccine 100 MCG/0.5ML Intramuscular Suspension Feliciano Spencers Work Phone: [facility] [employer] 250 DO Work Phone: 04-14-2020 Moderna COVID-19 Vaccine 100 MCG/0.5ML Intramuscular Suspension Feliciano Louis [employer]js Work Phone: [facility] [employer] DO Work Phone: 12-22-2019 Fluzone High-Dose Quadrivalent 0.7 ML Intramuscular Suspension Prefilled Syringe Feliciano Louis Spencercatie Work Phone: [facility] 12-06-2019 influenza, seasonal, injectable Feliciano Spencers Work Phone: [facility] [employer] DO Work Phone: 11-22-2018 influenza, seasonal, injectable Feliciano Spencercatie Other [employer] Other 11-20-2018 Seasonal trivalent influenza vaccine, adjuvanted, preservative free Feliciano Ga Work Phone: [facility] [employer] DO Work Phone: 11-05-2018 influenza virus vaccine, unspecified formulation Feliciano Spencers Work Phone: [facility] [employer] DO Work Phone: 12-06-2017 influenza, high dose seasonal, preservative-free Feliciano P Tjs Work Phone: [facility] [employer] DO Work Phone: 12-05-2017 influenza, seasonal, injectable Feliciano Spencers Other [employer] Other 11-05-2017 influenza virus vaccine, unspecified formulation Feliciano P Kuns Work Phone: [facility] 250 DO Work Phone: 04-07-2016 influenza virus vaccine, unspecified formulation Feliciano Spencercatie Work Phone: [facility] 250 DO Work Phone: 04-07-2016 pneumococcal conjuga te vaccine, 13 valent Feliciano Ga Work Phone: [facility] 250 DO Work Phone: 01-24-2012 Kenalog 40/Xylocaine Feliciano glaser Other [facility] [employer] Other Payers Date Payer Category Payer Medicare 2022 Unknown 2021 Self-pay [id number] 2016 Medicare [id number] 1959 [facility] [id number]. 1958 Medicare [id number] 2.1 [id number] 1941 Unknown [id number] 2. 840.1.009099.3.579.2. 1941 Unknown [id number] 2. 840.1.084945.3.579.2. 1941 Unknown [id number] 2. 840.1.960832.3.579.2. 1941 Unknown [id number] 2.16 840.1.660966.3.579.2. 1941 Unknown [id number] 2.16. 840.1.063463.3.579.2. 1941 Unknown [id number] 2.16. 840.1.297095.3.579.2. 1941 Unknown [id number] 2.16. 840.1.211562.3.579.2.356 1941 Unknown [id number] 2.16. 840.1.696442.3.579.2.356 1941 Unknown [id number] 2.16. 840.1.518052.3.579.2.356 1941 Unknown [id number] 2.16.84 0.1.560111.3.579.2.593 1941 Unknown [id number] 2.16.84 0.1.255670.3.579.2.593 1941 Unknown [id number] 2.16.84 0.1.586894.3.579.2.593 1941 Unknown [id number] 2.16.84 0.1.019463.3.579.2.593 1941 Unknown [id number] 2.16.84 0.1.734927.3.579.2.593 1941 Unknown [id number] 2.16.84 0.1.688584.3.579.2.593 1941 Unknown [id number] 2.16.84 0.1.077347.3.579.2.593 1941 Unknown [id number] 2.16.84 0.1.874943.3.579.2.593 1941 Unknown [id number] 2.16.84 0.1.041549.3.579.2.593 1941 Unknown [id number] 2.16.84 0.1.282486.3.579.2.593 1941 Unknown [id number] 2.16.84 0.1.488172.3.579.2.593 1941 Unknown [id number] 2.16.84 0.1.476909.3.579.2.593 1941 Unknown [id number] 2.16.84 0.1.513388.3.579.2.593 1941 Unknown [id number] 2.16. 840.1.846499.3.579.2.196 Unknown [id number] 2.16.8 40.1.077278.3.579.2.531 Unknown [id number] 2.16.8 40.1.325490.3.579.2.531 Unknown [id number] 2.16.8 40.1.821058.3.579.2.531 Unknown [id number] 2.16.8 40.1.428483.3.579.2.531 Unknown [id number] 2.16.8 40.1.742068.3.579.2.531 Unknown [id number] 2.16.8 40.1.075470.3.579.2.531 Social History Date Type Detail Facility Daily alcohol use Daily alcohol use [place] [address] [place] Work Phone: Comment on above: 1-2 beers; Coffee 2 cups daily; Quit smoking in 1979 ; Sex Assigned At Sex Assigned At [facility] [employer] Other Start: 12-26-2019 End: 01-13-2022 Tobacco smoking status NHIS Ex-smoker (finding) [facility] Start: 1940 Sex Assigned At Male [facility] Medical Equipment Procedure Code Equipment Code Equipment Origin al Text Equipment Identifier Dates Arthroplasty, knee, total, minimally invasive ART SURF LEFT 11MM [id number] FDA Start: 11-05-2019 Arthroplasty, knee, total, minimally invasive Orthopaedic cement, non-medicated [id number] FDA Start: 11-05-2019 Arthroplasty, knee, total, minimally invasive Uncoated knee femur prosthesis ()[id number] FDA Start: 11-05-2019 Arthroplasty, knee, total, minimally invasive Uncoated knee tibia prosthesis, metallic [id number] FDA Start: 11-05-2019 Arthroplasty, knee, total, minimally invasive Polyethylene patella prosthesis [id number] FDA Start: 11-05-2019 Arthroplasty, knee, total, minimally invasive ART SURF LEFT 11MM [id number] FDA Start: 11-05-2019 Arthroplasty, knee, total, minimally invasive ART SURF LEFT 11MM [id number] FDA Start: 11-05-2019 Arthroplasty, knee, total, minimally invasive ART SURF LEFT 11MM [id number] FDA Start: 11-05-2019 Arthroplasty, knee, total, minimally invasive ART SURF LEFT 11MM [id number] FDA Start: 11-05-2019 Arthroplasty, knee, total, minimally invasive ART SURF LEFT 11MM [id number] FDA Start: 11-05-2019 Arthroplasty, knee, total, minimally invasive ART SURF LEFT 11MM [id number] FDA Start: 11-05-2019 Goals Date Patient Goal Desired Activity /State Functional Status Date Assessment Result Facility 01-16-2022 Functional status Patient is Pro gressing Toward Baseline [facility] Work Phone: Mental Status Date Assessment Result Facility 01-16-2022 Cognitive function Cognitive Sta tus Patient at Baseline [facility] Work Phone: Clinical Notes 05-23-2006 to 12-06-2022 Note Date & Type Note Facility 12-06-2022 Evaluation note Encounter Date Diagnosis Assessment Notes Dec, Insomnia (ICD-10 - G47.00) [employer] Other 09-26-2023 Evaluation note* Encounter Date Diagnosis Assessment Notes Treatment Notes Treatment Clinical Notes Nov, Gout (ICD-10 - M10.9) [employer] Other 07-12-2023 Evaluation note* Encounter Date Diagnosis Assessment Notes Treatment Notes Treatment Clinical Notes Sep, Hyperlipidemia (ICD-10 - E78.5) Recent lab results reviewed today. His lipids are stable on the statin therapy. Liver enzymes are too stable. He does not have any exacerbation of the chronic pain that he is in. I do want him to continue with the statin therapy as ordered. Remainder of lab to include the blood sugar and chemestries are stable Sep, Hypothyroidism, unspecified (ICD-10 - E03.9) Thyroid levels are stable. He is to continue with current medicaton regimen as ordered. Sep, BPH (benign prostati c hypertrophy) (ICD-10 - N40.0) Patient has known BPH. PSA is within normal limits Sep, Lumbar degenerative disc disease (ICD-10 - M51.36) Patient is under the care of pain management out of [place]. States the pain is slightly improved and mobility of the spine is improved to wear he can bend over to touch his foot while in a sitting position. Encouraged to follow plan of care as outlined by pain management. Use stool softner/ increase fiber to assist with side effects of constipation that is caused by pain pill. Sep, Gout (ICD-10 - M10.9) N o swelling or redness reported in any of the joints. Allopurinol dose is to remain the same. Renal function is stable. CBC shows mild anemia but this is also stable for him and slightly better Sep, Cough, unspecified type (ICD-10 - R05.9) Patient reports episodic cough that varies througout the day. He reports thick green sputum at times associated with this. I am going to order him a zpack with a refll. He admits to not drinking very well. He needs to increase the fluids to thin out the secretions. Rx sent [employer] Other 07-05-2023 Evaluation note* Encounter Date Diagnosis Assessment Notes Treatment Notes Treatment Clinical Notes Sep, Hyperlipidemia (ICD-10 - E78.5) Sep, Insomnia (ICD-10 - G47.00) Sep, Hypothyroidism, unspecified (ICD-10 - E03.9) [employer] Other 04-03-2023 Evaluation note* Encounter Date Diagnosis Assessment Notes Treatment Notes Treatment Clinical Notes Jun, Lumbar degenerative disc disease (ICD-10 - M51.36) I am in agreement the patient keep the above medication on hand to use sparingly for back pain and to continue following with Pain Management. The patient states he does still go to the [facility] for hunting trips with a group but does not do much walking around anymore. Jun, Ground-level fall (ICD-10 - W18.30XA) The patient states he had a new door installed that has a small 3-inch step that he forgot about resulting in a fall yesterday 06/06/22. The patient sustained a left knee abrasion and exacerbation of lumbar pain. Per patient he thinks he landed on his cane and cell phone. The patient encourged to continue ambulating with his cane and use caution . Jun, Abrasion of left knee, initial encounter (ICD-10 - S80.212A) Abrasion of the left knee sustained secondary to a fall at this home yesterday 06/06/22. The patient states his knee is fine with no treatment required today. Jun, Hyperlipidemia (ICD-10 - E78.5) Blood work ordered to be collected in three months. Pt is to continue with the above medication and continue watching their diet and increase their exercise regimen. Jun, Weight loss (ICD-10 - R63.4) Blood work ordered to evalaute. Jun, Screening for prostate cancer (ICD-10 - Z12.5) [employer] Other 03-28-2023 Evaluation note* Encounter Date Diagnosis Assessment Notes Treatment Notes Treatment Clinical Notes May, Insomnia (ICD-10 - G47.00) [employer] Other 03-07-2023 Evaluation note* Encounter Date Diagnosis Assessment Notes Treatment Notes Treatment Clinical Notes May, Atrial fibrillation (ICD-10 - I48.91) [employer] Other 02-09-2023 NoteCONSULTATION CONSULTATION DATE: 04/15/2022 HISTORY OF PRESENT ILLNESS: This is an 81-year-old gentleman returning to the clinic status post lumbar epidural steroid injection completed on 03/30/2022. The patient received 100% relief for three days, and now is at 80% better and holding. Patient has had multiple epidural procedures in the past, and he states this one has been the best by far. He has been able to increase the endurance of his walking, standing and working around the house. He denies having bilateral lower extremity radiating pain at this time. Pain is 0 at rest. It will increase to 2 with activities. Bending, changes in the weather, transitioning positions and stooping aggravate his pain. Medications include Eliquis, Percocet 5/325 b.i.d., Robaxin 500 mg daily and Tylenol. Patient's REVIEW OF SYSTEMS / PAST MEDICAL HISTORY / ALLERGIES and IMAGES have been reviewed and noted on the chart. PHYSICAL EXAM: VITAL SIGNS: Blood pressure is 114/69. Heart rate is 93. He is 5'6 , weighs 85 kg. GENERAL IMPRESSION: Pleasant, appropriate, in no acute distress. FOCUSED EXAM - BACK: Range of motion is functional in lateral rotation and flexion/extension. Paravertebral muscles are non-spasmodic. No reproduction of spinal axial pain to compression along the facets. Tova's point mildly tender with no radiation. MUSCULOSKELETAL: Patient walks with a cane in a slow but steady antalgic gait. Diffuse muscle atrophy noted bilateral lower extremities. Slight motor weakness noted to bilateral anterior tibialis. Extensors are intact. NEUROLOGICALLY: Radicular sensory is intact. 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 Patient is cognitively intact. DIAGNOSIS: Lumbar spinal canal stenosis, lumbar degenerative disc, lumbar radiculitis. PLAN: Overall, the patient is doing very well. I did encourage him to continue with his heat, his multivitamin on a daily basis. I did discuss possibly considering gabapentin or Lyrica in the future, if and when the pain begins to return. Patient agrees with this plan, will be seen in the clinic in three months' time.[id number]* Encounter Date Diagnosis Assessment Notes Treatment Notes Treatment Clinical Notes Mar, Lumbar degenerative disc disease (ICD-10 - M51.36) Patient appears to be doing better with physcial therapy. I advised the patient to take the above pain medication as needed and is to continue to follow with Dr. Brambila as scheduled. Patient is to discuss with Dr. Mcintyre tomorrow if he is safe to take the pain medication everyday as he does get relief. Mar, Actinic keratosis (ICD-10 - L57.0) Noted on the scalp. I advised the patient we can freeze this if this does become bothersome. Encouraged patient to wear a hat out in the sun. [employer] Other 12-29-2022 Evaluation note* Encounter Date Diagnosis Assessment Notes Treatment Notes Treatment Clinical Notes Feb, Insomnia (ICD-10 - G47.00) Feb, Hypothyroidism, unspecified (ICD-10 - E03.9) [employer] Other 12-28-2022 Evaluation note* Encounter Date Diagnosis Assessment Notes Treatment Notes Treatment Clinical Notes Feb, Insomnia (ICD-10 - G47.00) Feb, Hypothyroidism, unspecified (ICD-10 - E03.9) [employer] Other 12-15-2022 NoteCONSULTATION CONSULTATION DATE: 02/18/2022 HISTORY OF PRESENT ILLNESS: This is a pleasant, 81-year-old gentleman who returns to the clinic for a three month follow up. He asked for his appointment to be moved up due to increasing pain. The patient has had multiple falls recently and even had an inpatient admission to evaluate these falls. His medications were changed in regard to his antihypertensive because his heart rate was too slow. He is currently in physical therapy 2-3 times a week and is experiencing significant pain as a result. He does have known lumbar spinal canal stenosis and has received epidural injections in the past with good but short term relief. Medications include Percocet 5/325 b.i.d., Robaxin, magnesium, trazodone and Eliquis. The patient has not been taking his Percocet regularly, as he has slight fear of opioids and is unsure of their true side effects. He does use a walker and has recently used a cane moving about inside the house. His daughter does help him with his medications and the gentleman lives alone. Patient's REVIEW OF SYSTEMS / PAST MEDICAL HISTORY / ALLERGIES and IMAGES have been reviewed and noted in the chart. PHYSICAL EXAM: VITAL SIGNS: Blood pressure is 130/83. Heart rate is 92. Temperature is 96.9. He is 5'6 , weighs 193 pounds. GENERAL APPEARANCE: Pleasant, appropriate, uncomfortable sitting in the chair. FOCUSED EXAM - BACK: Range of motion is guarded in lateral rotation and flexion/extension. Paravertebral muscles are taut bilaterally. Spinal axial pain is reproduced upon compression along the lumbar facets that does radiate to the lower extremities. Tova's point is tender bilaterally, with positive FABERs and compression test. MUSCULOSKELETAL: Diffuse muscle atrophy noted bilateral lower extremities. Patient does walk with a walker in a slow, shuffled gait. NEUROLOGICAL: Blunted reflexes bilateral lower extremities. Patient is cognitively intact. Diffuse polyneuropathy bilateral lower extremities. DIAGNOSIS: Lumbar spinal canal stenosis, lumbar degenerative disc disease and lumbar radiculitis. PLAN: We will move forward with a lumbar epidural steroid injection and patient will receive testosterone cypionate 150 mg in the OR. Spent time educating the patient on the use of Percocet, specifically with his increased amount of pain today. Patient does agree to take it as prescribed. We will gain authorization to hold his Eliquis prior to the procedure, and he will be followed in the office post procedure. Patient agrees to move forward with the plan of care.[id number] Evaluation note* Encounter Date Diagnosis Assessment Notes Treatment Notes Treatment Clinical Notes Feb, Lumbar degenerative disc disease (ICD-10 - M51.36) Daughter feels that patient was doing quite well while he was getting daily PT at [facility], however now that he has home has become significantly weaker since being home. He missed his Home health referal and therapy initiation due to being out of town. I feel that he would definitely benefit from further therapy, therefore this was ordered for him. Feb, CHF (congestive heart failure) (ICD-10 - I50.9) Patient states that he does not always take his diuretic when he has appointments or is leaving his home , resulting in CHF flare up. He is down about 16lbs since being diuresed during his hospitalization. Strongly encouraged patient to stay compliant with medications, wear his compression stockings and monitor his weight as often as he can. He will f/u with cardiology on 02/15. Feb, Lower extremity weakness (ICD-10 - M62.81) PT ordered for patient Feb, Candidiasis (ICD-10 - B37.9) Noted in groin area upon examination, continue using the above powder. [employer] Other 11-11-2022 Progress note Author Raji [facility] January 15, 2022 4:51pm Note Date/Time January 15, 2022 4:51pm [facility] EN[facility] [address] [place] [address] Hospitalist Progress Note Signed Patient: Irineo Wallis Jr MR# : [id number] : 1940 Acct:[id number] Age/Sex: 81 / M Adm Date: 2 Loc: 3T Room: [address] [place] [address] Type: ADM IN Attending Dr: Raji Ennis MD Copies to: ~ Date of Service: 01/15/2022 Subjective Subjective Narrative: patient seen and examined. No acute overnight events per RN. Patient is awake,alert and oriented x3. Complaining of low back pain intermittently which is chronic but denies any other symptoms. he is hemodynamically stable and is afebrile. Exam Physical Exam Vital Signs: Temp Pulse Resp BP Pulse Ox O2 Del Method O2 Flow Rate 97.8 F 68 18 113/61 96 Room Air 1 01/15/22 08:00 01/15/22 11:41 01/15/22 11:41 01/15/22 11:41 01/15/22 11:41 01/15/22 11:41 01/13/22 16:00 Narrative: General: awake, alert and oriented. HEENT: Normocephalic, atraumatic, PERRLA, normal mucosa Cardiovascular: Irregular rate and rhythm , S1-S2 heard, no murmurs or gallops Lungs: No wheezing or rhonchi heard Gastrointestinal: Soft, nontender, bowel sounds heard Extremities: 1+ edema in legs bilaterally Neurological: no sensory or motor deficit Skin: Dry and warm, no rashes or lesions Psych: Normal mood and affect Objective Lab Results CBC & Chem 7: 01/15/22 06:18 01/15/22 06:18 Microbiology Results Microbiology 01/12/22 13:30 Blood - Left Antecubital Blood Culture - Preliminary No Growth 3 Days 01/12/22 13:33 Blood - Left Hand Blood Culture - Preliminary No Growth 3 Days 01/13/22 13:50 [place] Urine Culture - Final No Growth 2 Days Meds Allergies and Active Meds Allergies fentanyl Allergy (Verified 01/09/22 09:38) Dizziness indomethacin [From Indocin] Allergy (Verified 01/09/22 09:38) Dizziness Penicillins Allergy (Verified 01/09/22 09:38) Weakness zolpidem [From Ambien] Adverse Reaction (Verified 01/09/22 09:38) Confusion Active Meds: Active Medications Generic Name Dose Route Start Last Admin Trade Name Vince PRN Reason Stop Dose Admin Acetaminophen 650 mg 01/09/22 14:41 01/14/22 19:57 Acetaminophen 325 Mg Tablet PO 01/09/23 14:40 650 mg Q6HR PRN Administration Pain Scale 1 - 3 or fever Allopurinol 300 mg 01/10/22 09:00 01/15/22 08:46 Allopurinol 300 Mg Tablet PO 01/10/23 08:59 300 mg DAILY ANIBAL Administration Apixaban 5 mg 01/09/22 21:00 01/15/22 08:46 Apixaban 5 Mg Tablet PO 01/09/23 20:59 5 mg BID ANIBAL Administration Atorvastatin Calcium 40 mg 01/09/22 22:00 01/14/22 21:32 Atorvastatin 40 Mg Tablet PO 01/09/23 21:59 40 mg QHS ANIBAL Administration Bisacodyl 10 mg 01/09/22 14:41 Bisacodyl 10 Mg Supp.Rect DC 01/09/23 14:40 DAILY PRN Constipation Bisacodyl 10 mg 01/09/22 14:41 01/15/22 14:16 Bisacodyl 5 Mg Tablet.Dr PO 01/09/23 14:40 10 mg DAILY PRN Administration Constipation Bumetanide 1 mg 01/14/22 16:00 01/15/22 08:46 Bumetanide 1 Mg Tablet PO 01/14/23 15:59 1 mg DAILY@0800 [facility] Administration Docusate Sodium 100 mg 01/09/22 21:00 01/15/22 08:46 Docusate 100 Mg Capsule PO 01/09/23 20:59 100 mg BID [facility] Administration Fluticasone Propionate 1 spray 01/09/22 15:17 Fluticasone Propionate [place] [address] [place]/16 Gm Bottle NARES-BOTH 01/09/23 15:16 QHS PRN Nasal Congestion Magnesium Sulfate 2 gm in 50 mls @ 25 mls/hr 01/09/22 14:41 Magnesium Sulf 2gm-*Swfi* IV 01/09/23 14:40 DAILY PRN Magnesium Level < 1.5 Levothyroxine Sodium 150 mcg 01/10/22 06:30 01/15/22 06:38 Levothyroxine 150 Mcg Tablet PO 01/10/23 06:29 Not Given DAILY@0630 ANIBAL Magnesium Hydroxide 30 ml 01/09/22 14:41 01/15/22 14:14 Magnesium Hydroxide Susp 30 Ml Udc PO 01/09/23 14:40 30 ml BID PRN Administration Constipation Magnesium Oxide 400 mg 01/10/22 09:00 01/15/22 08:46 Magnesium Oxide 400 Mg Tablet PO 01/10/23 08:59 400 mg DAILY ANIBAL Administration Nitroglycerin 0.4 mg 01/09/22 14:41 Nitroglycerin 0.4 Mg Tab.Subl SUBLINGUAL 01/09/23 14:40 Q5MIN.X3 PRN Chest Pain Pom Eszopiclone 3 Mg 3 mg 01/11/22 22:00 01/14/22 21:32 Tablet PO 01/11/23 21:59 3 mg HS ANIBAL Administration Nystatin 1 applic 01/09/22 22:00 01/15/22 14:14 Nystatin 100,000 Unit/Gram Powder 15 Gm Bottle TOPICAL 01/09/23 21:59 1 applic TID ANIBAL Administration Ondansetron HCl 4 mg 01/09/22 14:41 Ondansetron 4 Mg/2 Ml Vial IV-PUSH 01/09/23 14:40 Q8H PRN Nausea And Vomiting Oxycodone/Acetaminophen 1 tab 01/13/22 14:26 01/15/22 04:13 Oxycodone/Acetaminophen 5-325 Mg Tablet PO 1 tab Q8H PRN Administration Moderate Pain Potassium Chloride 20 meq 01/09/22 14:41 01/11/22 08:43 Potassium Chloride Er 20 Meq Tab.Er.Prt PO 01/09/23 14:40 20 meq DAILY PRN Administration Hypokalemia Potassium Chloride 40 meq 01/09/22 14:41 Potassium Chloride Er 20 Meq Tab.Er.Prt PO 01/09/23 14:40 DAILY PRN Hypokalemia Potassium Chloride 20 meq 01/09/22 21:00 01/14/22 21:32 Potassium Chloride Er 20 Meq Tab.Er.Prt PO 01/09/23 20:59 20 meq QPM ANIBAL Administration Sodium Chloride 0 ml 01/09/22 09:38 01/10/22 23:31 Sodium Chloride 0.9 % 10 Ml Syringe IV-PUSH 01/09/23 09:37 10 ml PRN PRN Administration Flush Sodium Chloride 0 ml 01/09/22 22:00 01/15/22 14:19 Sodium Chloride 0.9 % 10 Ml Syringe IV-PUSH 01/09/23 21:59 10 ml QSHIFT ANIBAL Administration A&P - Hospitalist Assessment/Plan (1) 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 Antibiotics discontinued as blood cultures have been negative Cardiology on board, digoxin and Coreg has been on hold with no signs of bradycardia. Plan to reinitiate Coreg in near future. Echocardiogram showed normal EF with mild to moderate left ventricular hypertrophy, moderate pulmonary hypertension. Carotid Doppler showed no hemodynamically significant stenosis in either extracranial ICA, both vertebral arteries are patent with antegrade flow MRI of the lumbar spine showed multilevel degenerative changes with mild to moderate canal stenosis. CT hip showed no acute bony findings Continue Bumex 1 mg p.o. daily Monitor electrolytes Fall precautions PT/OT DVT prophylaxis Patient accepted to SNF, transportation set up for tomorrow. Documented By: Raji Ennis MD 01/15/22 5990 Signed By: <Electronically signed by Raji Ennis MD> 01/15/22 1651 [facility] Work Phone: 1([phone] 924-767411-11-2022 Progress note Author Victor Manuel Reynolds [facility] January 15, 2022 12:21pm Note Date/Time January 15, 2022 12:21pm [facility] EN[facility] [address] [place] [address] Infect. Disease Progress Note Signed Patient: Irineo Wallis Jr MR# : [id number] : 1940 Acct:[id number] Age/Sex: 81 / M Adm Date: 2 Loc: Room: [address] [place] [address] Type: ADM IN Attending Dr: Raji Ennis MD Copies to: ~ Date of Service: 01/15/2022 Subjective Interval history: Patient had his antibiotics discontinued last night due to the fact that cultures remain negative. Remains afebrile without new complaints. Exam Physical Exam Vital Signs: Temp Pulse Resp BP Pulse Ox O2 Del Method O2 Flow Rate 97.8 F 68 18 113/61 96 Room Air 1 01/15/22 08:00 01/15/22 11:41 01/15/22 11:41 01/15/22 11:41 01/15/22 11:41 01/15/22 11:41 01/13/22 16:00 Const General: comfortable and no acute distress Orientation: oriented x3 HEENT Head: normal to inspection Nose: external nose normal Face and sinus: normal facial exam Mouth: oral mucosae normal Eyes General: appearance normal, both eyes and all related structures Neck Neck: normal visual inspection Chest Chest palpation & inspection: normal inspection of the chest Resp Effort & Inspection: normal respiratory effort, able to speak in complete sentences and symmetric chest movement Auscultation: clear to auscultation bilaterally Cardio Palpation: normal PMI Rate: regular rate GI Inspection: normal to inspection Palpation: soft and nontender General: other (chou) Skin General: other (multiple areas with bandages from traumas when he fell) Neuro General: patient oriented x3 Objective Labs CBC/BMP: CBC, BMP 01/15/22 01/15/22 06:18 06:18 Corrected WBC 7.9 Uncorrected WBC Count 7.9 RBC 3.48 L Hgb 11.7 L Hct 34.7 L Plt Count 180 Sodium 130 L Potassium 3.9 Chloride 94 L Carbon Dioxide 31.7 H Anion Gap 8.2 BUN 29 H Creatinine 1.50 H Calcium 8.8 Labs: 01/15/22 06:18 BUN 29 H Creatinine 1.50 H Microbiology Microbiology: Microbiology - Results from entire visit 01/13/22 13:50 [place]ou [place] Urine Culture - Final No Growth 2 Days 01/12/22 13:30 Blood - Left Antecubital Blood Culture - Preliminary No Growth 2 Days 01/12/22 13:33 Blood - Left Hand Blood Culture - Preliminary No Growth 2 Days 01/09/22 12:42 Urine - Clean-Voided Midstream Urine Culture - Final 30,000 colonies/ml mixed bacterial skin contaminants 2 Days 01/09/22 10:12 Nasal SARS Antigen (LFIA) - Final Allergies and Medications Allergies and Active Meds Allergies fentanyl Allergy (Verified 01/09/22 09:38) Dizziness indomethacin [From Indocin] Allergy (Verified 01/09/22 09:38) Dizziness Penicillins Allergy (Verified 01/09/22 09:38) Weakness zolpidem [From Ambien] Adverse Reaction (Verified 01/09/22 09:38) Confusion Active Medications Acetaminophen (Acetaminophen 325 Mg Tablet) 650 mg PO Q6HR PRN PRN Reason: Pain Scale 1 - 3 or fever Stop: 01/09/23 14:40 Last Admin: 01/14/22 19:57 Dose: 650 mg Allopurinol (Allopurinol 300 Mg Tablet) 300 mg PO DAILY [facility] Stop: 01/10/23 08:59 Last Admin: 01/15/22 08:46 Dose: 300 mg Apixaban (Apixaban 5 Mg Tablet) 5 mg PO BID ANIBAL Stop: 01/09/23 20:59 Last Admin: 01/15/22 08:46 Dose: 5 mg Atorvastatin Calcium (Atorvastatin 40 Mg Tablet) 40 mg PO QHS ANIBAL Stop: 01/09/23 21:59 Last Admin: 01/14/22 21:32 Dose: 40 mg Bisacodyl (Bisacodyl 10 Mg Supp.Rect) 10 mg DC DAILY PRN PRN Reason: Constipation Stop: 01/09/23 14:40 Bisacodyl (Bisacodyl 5 Mg Tablet.Dr) 10 mg PO DAILY PRN PRN Reason: Constipation Stop: 01/09/23 14:40 Last Admin: 01/14/22 19:57 Dose: 10 mg Bumetanide (Bumetanide 1 Mg Tablet) 1 mg PO DAILY@0800 [facility] Stop: 01/14/23 15:59 Last Admin: 01/15/22 08:46 Dose: 1 mg Docusate Sodium (Docusate 100 Mg Capsule) 100 mg PO BID [facility] Stop: 01/09/23 20:59 Last Admin: 01/15/22 08:46 Dose: 100 mg Fluticasone Propionate (Fluticasone Propionate [place] [address] [place]/16 Gm Bottle) 1 spray NARES-BOTH QHS PRN PRN Reason: Nasal Congestion Stop: 01/09/23 15:16 Magnesium Sulfate (Magnesium Sulf 2gm-*Swfi*) 2 gm in 50 mls @ 25 mls/hr IV DAILY PRN PRN Reason: Magnesium Level < 1.5 Stop: 01/09/23 14:40 Levothyroxine Sodium (Levothyroxine 150 Mcg Tablet) 150 mcg PO DAILY@0630 [facility] Stop: 01/10/23 06:29 Last Admin: 01/15/22 06:38 Dose: Not Given Magnesium Hydroxide (Magnesium Hydroxide Susp 30 Ml Udc) 30 ml PO BID PRN PRN Reason: Constipation Stop: 01/09/23 14:40 Magnesium Oxide (Magnesium Oxide 400 Mg Tablet) 400 mg PO DAILY ANIBAL Stop: 01/10/23 08:59 Last Admin: 01/15/22 08:46 Dose: 400 mg Nitroglycerin (Nitroglycerin 0.4 Mg Tab.Subl) 0.4 mg SUBLINGUAL Q5MIN.X3 PRN PRN Reason: Chest Pain Stop: 01/09/23 14:40 Pom Eszopiclone 3 Mg (Tablet) 3 mg PO HS [facility] Stop: 01/11/23 21:59 Last Admin: 01/14/22 21:32 Dose: 3 mg Nystatin (Nystatin 100,000 Unit/Gram Powder 15 Gm Bottle) 1 applic TOPICAL TID [facility] Stop: 01/09/23 21:59 Last Admin: 01/15/22 08:46 Dose: 1 applic Ondansetron HCl (Ondansetron 4 Mg/2 Ml Vial) 4 mg IV-PUSH Q8H PRN PRN Reason: Nausea And Vomiting Stop: 01/09/23 14:40 Oxycodone/Acetaminophen (Oxycodone/Acetaminophen 5-325 Mg Tablet) 1 tab PO Q8H PRN PRN Reason: Moderate Pain Last Admin: 01/15/22 04:13 Dose: 1 tab Potassium Chloride (Potassium Chloride Er 20 Meq Tab.Er.Prt) 20 meq PO DAILY PRN PRN Reason: Hypokalemia Stop: 01/09/23 14:40 Last Admin: 01/11/22 08:43 Dose: 20 meq Potassium Chloride (Potassium Chloride Er 20 Meq Tab.Er.Prt) 40 meq PO DAILY PRN PRN Reason: Hypokalemia Stop: 01/09/23 14:40 Potassium Chloride (Potassium Chloride Er 20 Meq Tab.Er.Prt) 20 meq PO QPM [facility] Stop: 01/09/23 20:59 Last Admin: 01/14/22 21:32 Dose: 20 meq Sodium Chloride (Sodium Chloride 0.9 % 10 Ml Syringe) 0 ml IV-PUSH PRN PRN PRN Reason: Flush Stop: 01/09/23 09:37 Last Admin: 01/10/22 23:31 Dose: 10 ml Sodium Chloride (Sodium Chloride 0.9 % 10 Ml Syringe) 0 ml IV-PUSH QSHIFT ANIBAL Stop: 01/09/23 21:59 Last Admin: 01/15/22 06:38 Dose: Not Given A&P - Infectious Disease Assessment/Plan (1) Fever: Code(s): R50.9 - Fever, unspecified Status: Acute Plan Antibiotics were stopped last night due to lack of infectious etiology found. Patient remains afebrile. Continue to observe off antibiotics. Patient denies any new physical complaints. We will follow him as needed Documented By: Victor Manuel Reynolds MD 01/15/221219 Signed By: <Electronically signed by MD Victor Manuel Reynolds> 01/15/221 [facility] Work Phone: [phone]) 379-381411-10-2022 Progress note Author Raji Ennis [facility] January 14, 2022 5:43pm Note Date/Time January 14, 2022 5:43pm [facility] EN[facility] [address] [place] [address] Hospitalist Progress Note Signed Patient: Irineo Wallis Jr MR# : [id number] : 1940 Acct:[id number] Age/Sex: 81 / M Adm Date: 2 Loc: Room: [address] [place] [address] Type: ADM IN Attending Dr: Raji Ennis MD Copies to: ~ Date of Service: 01/14/2022 Subjective Subjective Narrative: patient seen and examined. He is in good spirits today and is oriented x3. Denies any shortness of breath, cough, chest pain, fever and chills. States that low back pain is fairly well tolerated with pain medications. Exam Physical Exam Vital Signs: Temp Pulse Resp BP Pulse Ox O2 Del Method O2 Flow Rate 97.5 F L 62 16 133/66 96 Room Air 1 01/14/22 15:19 01/14/22 15:19 01/14/22 15:19 01/14/22 15:19 01/14/22 15:19 01/14/22 16:17 01/13/22 16:00 Narrative: General: awake, alert and oriented. HEENT: Normocephalic, atraumatic, PERRLA, normal mucosa Cardiovascular: Irregular rate and rhythm , S1-S2 heard, no murmurs or gallops Lungs: No wheezing or rhonchi heard Gastrointestinal: Soft, nontender, bowel sounds heard Extremities: 1+ edema in legs bilaterally Neurological: no sensory or motor deficit Skin: Dry and warm, no rashes or lesions Psych: Normal mood and affect Objective Lab Results CBC & Chem 7: 01/13/22 07:28 01/13/22 07:28 Microbiology Results Microbiology 01/13/22 13:50 [place] Urine Culture - Preliminary No Growth 1 Day 01/12/22 13:30 Blood - Left Antecubital Blood Culture - Preliminary No Growth 2 Days 01/12/22 13:33 Blood - Left Hand Blood Culture - Preliminary No Growth 2 Days Meds Allergies and Active Meds Allergies fentanyl Allergy (Verified 01/09/22 09:38) Dizziness indomethacin [From Indocin] Allergy (Verified 01/09/22 09:38) Dizziness Penicillins Allergy (Verified 01/09/22 09:38) Weakness zolpidem [From Ambien] Adverse Reaction (Verified 01/09/22 09:38) Confusion Active Meds: Active Medications Generic Name Dose Route Start Last Admin Trade Name Freq PRN Reason Stop Dose Admin Acetaminophen 650 mg 01/09/22 14:41 01/13/22 21:26 Acetaminophen 325 Mg Tablet PO 01/09/23 14:40 650 mg Q6HR PRN Administration Pain Scale 1 - 3 or fever Allopurinol 300 mg 01/10/22 09:00 01/14/22 08:04 Allopurinol 300 Mg Tablet PO 01/10/23 08:59 300 mg DAILY ANIBAL Administration Apixaban 5 mg 01/09/22 21:00 01/14/22 08:04 Apixaban 5 Mg Tablet PO 01/09/23 20:59 5 mg BID ANIBAL Administration Atorvastatin Calcium 40 mg 01/09/22 22:00 01/13/22 21:26 Atorvastatin 40 Mg Tablet PO 01/09/23 21:59 40 mg QHS ANIBAL Administration Bisacodyl 10 mg 01/09/22 14:41 Bisacodyl 10 Mg Supp.Rect DC 01/09/23 14:40 DAILY PRN Constipation Bisacodyl 10 mg 01/09/22 14:41 01/13/22 21:26 Bisacodyl 5 Mg Tablet.Dr PO 01/09/23 14:40 10 mg DAILY PRN Administration Constipation Bumetanide 1 mg 01/14/22 16:00 01/14/22 15:13 Bumetanide 1 Mg Tablet PO 01/14/23 15:59 1 mg DAILY@0800 AN[facility] Administration Docusate Sodium 100 mg 01/09/22 21:00 01/14/22 08:03 Docusate 100 Mg Capsule PO 01/09/23 20:59 100 mg BID ANIBAL Administration Fluticasone Propionate 1 spray 01/09/22 15:17 Fluticasone Propionate [place] [address] [place]/16 Gm Bottle NARES-BOTH 01/09/23 15:16 QHS PRN Nasal Congestion Magnesium Sulfate 2 gm in 50 mls @ 25 mls/hr 01/09/22 14:41 Magnesium Sulf 2gm-*Swfi* IV 01/09/23 14:40 DAILY PRN Magnesium Level < 1.5 Cefepime HCl 2 gm in 50 mls @ 100 mls/hr 01/12/22 15:06 01/14/22 15:13 Maxipime IV 01/14/22 23:59 100 mls/hr Q12H ANIBAL Administration Vancomycin HCl 1.25 gm/ 275 mls @ 183.333 mls/hr 01/13/22 19:00 01/13/22 21:17 Dextrose IV 01/14/22 23:59 Infused Q24H ANIBAL Infusion Levothyroxine Sodium 150 mcg 01/10/22 06:30 01/14/22 05:54 Levothyroxine 150 Mcg Tablet PO 01/10/23 06:29 150 mcg DAILY@0630 AN[facility] Administration Magnesium Hydroxide 30 ml 01/09/22 14:41 Magnesium Hydroxide Susp 30 Ml Udc PO 01/09/23 14:40 BID PRN Constipation Magnesium Oxide 400 mg 01/10/22 09:00 01/14/22 08:04 Magnesium Oxide 400 Mg Tablet PO 01/10/23 08:59 400 mg DAILY ANIBAL Administration Nitroglycerin 0.4 mg 01/09/22 14:41 Nitroglycerin 0.4 Mg Tab.Subl SUBLINGUAL 01/09/23 14:40 Q5MIN.X3 PRN Chest Pain Pom Eszopiclone 3 Mg 3 mg 01/11/22 22:00 01/13/22 21:27 Tablet PO 01/11/23 21:59 3 mg HS ANIBAL Administration Nystatin 1 applic 01/09/22 22:00 01/14/22 15:13 Nystatin 100,000 Unit/Gram Powder 15 Gm Bottle TOPICAL 01/09/23 21:59 1 applic TID ANIBAL Administration Ondansetron HCl 4 mg 01/09/22 14:41 Ondansetron 4 Mg/2 Ml Vial IV-PUSH 01/09/23 14:40 Q8H PRN Nausea And Vomiting Oxycodone/Acetaminophen 1 tab 01/13/22 14:26 01/14/22 16:35 Oxycodone/Acetaminophen 5-325 Mg Tablet PO 1 tab Q8H PRN Administration Moderate Pain Potassium Chloride 20 meq 01/09/22 14:41 01/11/22 08:43 Potassium Chloride Er 20 Meq Tab.Er.Prt PO 01/09/23 14:40 20 meq DAILY PRN Administration Hypokalemia Potassium Chloride 40 meq 01/09/22 14:41 Potassium Chloride Er 20 Meq Tab.Er.Prt PO 01/09/23 14:40 DAILY PRN Hypokalemia Potassium Chloride 20 meq 01/09/22 21:00 01/13/22 21:26 Potassium Chloride Er 20 Meq Tab.Er.Prt PO 01/09/23 20:59 20 meq QPM ANIBAL Administration Sodium Chloride 0 ml 01/09/22 09:38 01/10/22 23:31 Sodium Chloride 0.9 % 10 Ml Syringe IV-PUSH 01/09/23 09:37 10 ml PRN PRN Administration Flush Sodium Chloride 0 ml 01/09/22 22:00 01/14/22 15:13 Sodium Chloride 0.9 % 10 Ml Syringe IV-PUSH 01/09/23 21:59 10 ml QSHIFT ANIBAL Administration Vancomycin HCl 1 each 01/14/22 12:05 Vancomycin - Pharmacy Dosing 1 Each Miscell IV 01/14/22 23:59 ONCE PRN ZZ.Pharmacy Consult Protocol A&P - Hospitalist Assessment/Plan (1) Acute on chronic congestive heart failure with left ventricular diastolic dysfunction: (2) Falls frequently: (3) Difficulty walking: (4) Bladder retention: (5) Constipation: (6) Acute respiratory failure with hypoxia: (7) Pleural effusion: (8) Atrial fibrillation: (9) Hypertension: (10) Anasarca: (11) Generalized weakness: (12) Impaired activities of daily living: (13) Sleep apnea: (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 Denies any complaints. Has been hemodynamically stable and afebrile for the past 2 days No leukocytosis Chest x-ray showed no signs of infection. Blood cultures showed no growth so far ID on board. Will discontinue antibiotics if cultures remain negative for 2 days Cardiology on board, digoxin and Coreg has been on hold with no signs of bradycardia. Plan to reinitiate Coreg in near future. Echocardiogram showed normal EF with mild to moderate left ventricular hypertrophy, moderate pulmonary hypertension. Carotid Doppler showed no hemodynamically significant stenosis in either extracranial ICA, both vertebral arteries are patent with antegrade flow MRI of the lumbar spine showed multilevel degenerative changes with mild to moderate canal stenosis. CT hip showed no acute bony findings Continue Bumex 1 mg p.o. daily Monitor electrolytes Fall precautions PT/OT DVT prophylaxis Documented By: Raji Ennis MD 01/14/221740 Signed By: <Electronically signed by Raji Ennis MD> 01/14/221742 [facility] Work Phone: [phone]) [phone] Progress note Author Victor Manuel Reynolds [facility] January 14, 2022 9:39am Note Date/Time January 14, 2022 9:39am [facility] EN[facility] [address] [place] [address] Infect. Disease Progress Note Signed Patient: Irineo Wallis Jr MR# : [id number] : 1940 Acct:[id number] Age/Sex: 81 / M Adm Date: 2 Loc: Room: [address] [place] [address] Type: ADM IN Attending Dr: Raji Ennis MD Copies to: ~ Date of Service: 01/14/2022 Subjective Interval history: Patient is sitting in chair as he was yesterday. Denies any new complaints. Nonausea vomiting or diarrhea. Remains afebrile. Exam Physical Exam Vital Signs: Vital Signs Temp Pulse Resp BP Pulse Ox O2 Del Method O2 Flow Rate 01/14/22 08:50 Room Air 01/14/22 07:25 97.8 F 71 16 96/62 L 93 L Room Air 01/14/22 03:27 97.6 F 62 16 131/73 93 L Room Air 01/14/22 00:00 Room Air 01/13/22 23:30 98.4 F 71 16 111/60 94 L Room Air 01/13/22 20:36 Room Air 01/13/22 19:18 98.1 F 65 16 122/69 93 L Room Air 01/13/22 16:00 Room Air 1 01/13/22 16:00 Room Air 01/13/22 16:36 98.6 F 71 16 133/79 92 L Room Air 01/13/22 14:00 Room Air 01/13/22 12:00 56 L 12 150/74 H 98 Room Air Const General: comfortable and no acute distress Orientation: oriented x3 HEENT Head: normal to inspection Nose: external nose normal Face and sinus: normal facial exam Mouth: oral mucosae normal Eyes General: appearance normal, both eyes and all related structures Neck Neck: normal visual inspection Chest Chest palpation & inspection: normal inspection of the chest Resp Effort & Inspection: normal respiratory effort, able to speak in complete sentences and symmetric chest movement Auscultation: clear to auscultation bilaterally Cardio Palpation: normal PMI Rate: regular rate GI Inspection: normal to inspection Palpation: soft and nontender General: other (chou) Skin General: other (multiple areas with bandages from traumas when he fell) Neuro General: patient oriented x3 Objective Labs Labs: 01/13/22 13:50 Urine Color Yellow Urine Appearance Clear Urine pH 5.5 Ur Specific Sugar Run 1.012 Urine Protein 30 H Urine Glucose (UA) Normal Urine Ketones Negative Urine Occult Blood 3+ H Urine Nitrite Negative Urine Bilirubin Negative Urine Urobilinogen Normal Ur Leukocyte Esterase 2+ H Urine RBC 50-100 H Urine WBC 5-9 H Ur Squamous Epith Cells 0-1 Urine Bacteria None seen Hyaline Casts 0-8 Microbiology Microbiology: 01/13/22 13:50 Urine Culture - Pending [place] 01/12/22 13:30 Blood Culture - Preliminary Blood - Left Antecubital No Growth 1 Day 01/12/22 13:33 Blood Culture - Preliminary Blood - Left Hand No Growth 1 Day 01/09/22 12:42 Urine Culture - Final Urine - Clean-Voided Midstream 30,000 colonies/ml mixed bacterial skin contaminants 2 Days Allergies and Medications Allergies and Active Meds Allergies fentanyl Allergy (Verified 01/09/22 09:38) Dizziness indomethacin [From Indocin] Allergy (Verified 01/09/22 09:38) Dizziness Penicillins Allergy (Verified 01/09/22 09:38) Weakness zolpidem [From Ambien] Adverse Reaction (Verified 01/09/22 09:38) Confusion Active Medications Acetaminophen (Acetaminophen 325 Mg Tablet) 650 mg PO Q6HR PRN PRN Reason: Pain Scale 1 - 3 or fever Stop: 01/09/23 14:40 Last Admin: 01/13/22 21:26 Dose: 650 mg Allopurinol (Allopurinol 300 Mg Tablet) 300 mg PO DAILY [facility] Stop: 01/10/23 08:59 Last Admin: 01/14/22 08:04 Dose: 300 mg Apixaban (Apixaban 5 Mg Tablet) 5 mg PO BID ANIBAL Stop: 01/09/23 20:59 Last Admin: 01/14/22 08:04 Dose: 5 mg Atorvastatin Calcium (Atorvastatin 40 Mg Tablet) 40 mg PO QHS ANIBAL Stop: 01/09/23 21:59 Last Admin: 01/13/22 21:26 Dose: 40 mg Bisacodyl (Bisacodyl 10 Mg Supp.Rect) 10 mg DC DAILY PRN PRN Reason: Constipation Stop: 01/09/23 14:40 Bisacodyl (Bisacodyl 5 Mg Tablet.Dr) 10 mg PO DAILY PRN PRN Reason: Constipation Stop: 01/09/23 14:40 Last Admin: 01/13/22 21:26 Dose: 10 mg Bumetanide (Bumetanide 1 Mg Tablet) 1 mg PO BID@0800,1600 [facility] Stop: 01/13/23 15:59 Docusate Sodium (Docusate 100 Mg Capsule) 100 mg PO BID ANIBAL Stop: 01/09/23 20:59 Last Admin: 01/14/22 08:03 Dose: 100 mg Fluticasone Propionate (Fluticasone Propionate [place] 120 [place]/16 Gm Bottle) 1 spray NARES-BOTH QHS PRN PRN Reason: Nasal Congestion Stop: 01/09/23 15:16 Magnesium Sulfate (Magnesium Sulf 2gm-*Swfi*) 2 gm in 50 mls @ 25 mls/hr IV DAILY PRN PRN Reason: Magnesium Level < 1.5 Stop: 01/09/23 14:40 Cefepime HCl (Maxipime) 2 gm in 50 mls @ 100 mls/hr IV Q12H [facility] Last Admin: 01/14/22 03:05 Dose: 100 mls/hr Vancomycin HCl 1.25 gm/ (Dextrose) 275 mls @ 183.333 mls/hr IV Q24H [facility] Stop: 01/13/23 18:59 Last Infusion: 01/13/22 21:17 Dose: Infused Levothyroxine Sodium (Levothyroxine 150 Mcg Tablet) 150 mcg PO DAILY@0630 [facility] Stop: 01/10/23 06:29 Last Admin: 01/14/22 05:54 Dose: 150 mcg Magnesium Hydroxide (Magnesium Hydroxide Susp 30 Ml Udc) 30 ml PO BID PRN PRN Reason: Constipation Stop: 01/09/23 14:40 Magnesium Oxide (Magnesium Oxide 400 Mg Tablet) 400 mg PO DAILY [facility] Stop: 01/10/23 08:59 Last Admin: 01/14/22 08:04 Dose: 400 mg Nitroglycerin (Nitroglycerin 0.4 Mg Tab.Subl) 0.4 mg SUBLINGUAL Q5MIN.X3 PRN PRN Reason: Chest Pain Stop: 01/09/23 14:40 Pom Eszopiclone 3 Mg (Tablet) 3 mg PO HS [facility] Stop: 01/11/23 21:59 Last Admin: 01/13/22 21:27 Dose: 3 mg Nystatin (Nystatin 100,000 Unit/Gram Powder 15 Gm Bottle) 1 applic TOPICAL TID [facility] Stop: 01/09/23 21:59 Last Admin: 01/14/22 08:04 Dose: 1 applic Ondansetron HCl (Ondansetron 4 Mg/2 Ml Vial) 4 mg IV-PUSH Q8H PRN PRN Reason: Nausea And Vomiting Stop: 01/09/23 14:40 Oxycodone/Acetaminophen (Oxycodone/Acetaminophen 5-325 Mg Tablet) 1 tab PO Q8H PRN PRN Reason: Moderate Pain Potassium Chloride (Potassium Chloride Er 20 Meq Tab.Er.Prt) 20 meq PO DAILY PRN PRN Reason: Hypokalemia Stop: 01/09/23 14:40 Last Admin: 01/11/22 08:43 Dose: 20 meq Potassium Chloride (Potassium Chloride Er 20 Meq Tab.Er.Prt) 40 meq PO DAILY PRN PRN Reason: Hypokalemia Stop: 01/09/23 14:40 Potassium Chloride (Potassium Chloride Er 20 Meq Tab.Er.Prt) 20 meq PO QPM ANIBAL Stop: 01/09/23 20:59 Last Admin: 01/13/22 21:26 Dose: 20 meq Sodium Chloride (Sodium Chloride 0.9 % 10 Ml Syringe) 0 ml IV-PUSH PRN PRN PRN Reason: Flush Stop: 01/09/23 09:37 Last Admin: 01/10/22 23:31 Dose: 10 ml Sodium Chloride (Sodium Chloride 0.9 % 10 Ml Syringe) 0 ml IV-PUSH QSHIFT ANIBAL Stop: 01/09/23 21:59 Last Admin: 01/14/22 05:54 Dose: 10 ml Vancomycin HCl (Vancomycin - Pharmacy Dosing 1 Each Miscell) 1 each IV ONCE PRN; Protocol PRN Reason: ZZ.Pharmacy Consult A&P - Infectious Disease Assessment/Plan (1) Fever: Code(s): R50.9 - Fever, unspecified Status: Acute Plan Patient in the hospital after falling at home. Patient without elevated white count or fever for the most part this hospital stay. Isolated temperature 48 hours ago that prompted antibiotics to be started. The blood cultures are negative at 1 day at almost 2 days. Urinalysis was sent yesterday that did havesome RBCs but minimal WBCs and no bacteria seen. Urine culture pending. Patient's temperature curve quickly resolved and remains normal. He has been onbroad-spectrum antibiotic therapy but no clear infection has been found to date. Blood cultures to be negative at 48 hours later today and if urine culture remains negative we will plan on stopping antibiotics after tonight's last dose. We then can observe off antibiotic. Uric acid was within normal limits Documented By: Victor Manuel Reynolds MD 01/14/22934 Signed By: <Electronically signed by MD Victor Manuel Reynolds> 01/14/2204 [facility] Work Phone: [phone] Progress note Author Mani Dickens [facility] January 13, 2022 6:10pm Note Date/Time January 13, 2022 8 :13am [facility] [address] [place] [address] Neurology Progress Note Signed with Addenda Patient: Irineo Wallis Jr MR# : [id number] : 1940 Acct:[id number] Age/Sex: 81 / M Adm Date: 2 Loc: Room: [address] [place] [address] Type: ADM IN Attending Dr: Raji Ennis MD Copies to: ~ ADDENDUM1 The patient is an 81-year-old male with chronic back pain and increased difficulty ambulating admitted to the hospital due to difficulty getting around. The patient had an MRI scan of the lumbar spine which did not reveal evidence of an acute process. There is no evidence of recurrent ependymoma or severe degenerative changes. The patient does have moderate degenerative disc disease for which she has seen pain management in the past likely contributing to his symptoms. Cannot exclude clued a right hip process contributing to a component of the right leg pain. I will obtain an x-ray of the right hip. The patient would benefit from physical therapy and likely rehabilitation. I counseled the patient and his daughter on the possible diagnosis, evaluation, treatment options. Addendum Documented By: MD Mani Dickens 01/13/221809 Addendum Signed By: <Electronically signed by MD Mani Dickens> 01/13/221809 Date of Service: 01/13/2022 Subjective Subjective Narrative: Patient ambulating back from the bathroom with physical therapy. Continues to complain of severe back pain that radiates down both legs, right greater than the left. Review of Systems Cardiovascular Cardiovascular: Denies chest pain Respiratory Respiratory: Denies dyspnea Musculoskeletal Musculoskeletal: Reports back pain, Reports muscle weakness and Reports radiating pain into limb Neurologic Neurologic: Denies abnormal speech, Reports confusion, Reports localized weakness (Lower extremities greater than upper), Denies headache(s) and Reports memory loss Exam Physical Exam Vital Signs: Temp Pulse Resp BP Pulse Ox O2 Del Method O2 Flow Rate 98.7 F 73 18 102/49 L 90 L Room Air 1 01/13/22 04:00 01/13/22 04:00 01/13/22 04:00 01/13/22 04:00 01/13/22 04:00 01/13/22 04:00 01/11/22 04:50 Narrative: GENERAL EXAM: * Constitutional - Patient appears well nourished and well groomed * Patient is alert and oriented to person only. NEURO EXAM: * Attention span/concentration impaired, improved * Speech is minimal but clear * Cranial nerve II. Vision is intact. KRISTA * Cranial nerve III, IV and . EOM grossly intact. No obvious nystagmus * Cranial nerve V and VII. No facial asymmetry is appreciated. Temperature and touch is intact * Cranial nerve VIII hearing is intact * Cranial nerve IX and X speech is minimal but clear * Cranial nerve XI head turn side to side full range of motion. Shoulder shrug is equal bilaterally * Cranial nerve XII tongue is midline full range of motion MOTOR EXAM: * Strength is 5/5 in bilateral upper extremities. No pronator drift was appreciated * 4/5 in the left lower extremity and -5/5 in the right lower extremity * Muscle tone and bulk are normal * Gait not assessed SENSORY EXAM: * Temperature and touch are intact in all 4 extremities. Decreased sensation be low the knee to all modalities. CEREBELLAR EXAM: * Alternating movements are intact and normal in bilateral upper extremities * Alternating movements are intact and normal in lower extremities * Unable to test finger-nose or [id number] due to drowsiness REFLEX EXAM: * 1/4 throughout Objective Vital Signs Vital Signs: Vital Signs - 24 hr 01/12/22 08:21 01/12/22 08:22 01/12/22 11:30 Temperature 98.9 F Pulse Rate 65 Respiratory Rate 18 Blood Pressure 117/82 02 Sat by Pulse Oximetry 94 L Oxygen Delivery Method Room Air Room Air Room Air 01/12/22 11:31 01/12/22 12:10 01/12/22 12:59 Temperature 100.2 F H 100.6 F H 100.4 F H Pulse Rate 60 Respiratory Rate 16 Blood Pressure 161/93 H 02 Sat by Pulse Oximetry 93 L Oxygen Delivery Method Room Air 01/12/22 13:35 01/12/22 15:15 01/12/22 15:25 Temperature 99.6 F H 100.0 F H Pulse Rate 51 L Respiratory Rate 18 Blood Pressure 118/67 02 Sat by Pulse Oximetry 93 L Oxygen Delivery Method Room Air Room Air 01/12/22 15:55 01/12/22 16:00 01/12/22 20:00 Temperature 98.8 F 98.3 F Pulse Rate 67 Respiratory Rate 18 Blood Pressure 133/65 02 Sat by Pulse Oximetry 95 Oxygen Delivery Method Room Air Room Air 01/12/22 23:11 01/12/22 20:00 01/13/22 00:00 Temperature 98.7 F Pulse Rate 77 Respiratory Rate 18 Blood Pressure 123/70 02 Sat by Pulse Oximetry 92 L Oxygen Delivery Method Room Air Room Air Room Air 01/13/22 04:00 Temperature 98.7 F Pulse Rate 73 Respiratory Rate 18 Blood Pressure 102/49 L 02 Sat by Pulse Oximetry 90 L Oxygen Delivery Method Room Air Labs CBC & Chem 7: 01/13/22 07:28 01/13/22 07:28 Therapy Recommendations Therapy Recommendations: OT Recommendations OT Recommended Discharge [facility]dc Facility Location OT Recommended Services at Physical Therapy,Occupational Therapy Discharge PT Recommendations PT Recommended Discharge Fdc Facility Location PT Recommended Services at Physical Therapy,Occupational Therapy,27/09 Discharge Supervision Assessment/Plan (1) Altered mental status: Code(s): R41.82 - Altered mental status, unspecified Status: Acute (2) Falls frequently: Assessment/Problem Details: 81-year-old man with medical history of atrial fibrillation on Eliquis, congestive heart failure, obstructive sleep apnea which is untreated, and degenerative joint disease. 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 He presented to the emergency department on January 09, 2022 via EMS for evaluation of fall and injury. He got up to go to the bathroom in the middle the night with his walker and lost his balance andfell and was unable to get back up, being stuck on the floor for several hours. It sounds like there may have been some preceding dizziness that contributed. CT scan of the head and spine were unrevealing. Dr. Sesar Calvillo did the operation. They were told that when they did the resection the surgeon could not take all of it. He has subsequent spinal imaging that continues to show some evidence oftumor. He has a lot of low back pain. Some of those back pain seem to radiate into his upper thighs, which he describes as a dull ache. Chronic low back painand lower extremity weakness with progressive worsening is likely multifactorial. Symptoms into the legs and thighs may represent chronic lumbar radiculopathy. He has very little sensation in the feet, and no vibratory sensation, which likely affects his balance and suggest possible polyneuropathy. DATA REVIEW: MRI lumbar spine from July 08, 2004 shows a stable contrast-enhancing mass within the intradural space at the L2-3 level, and postsurgical changes with bilateral laminectomies at L4-5 and L5-S1 MRI lumbar spine from January 06, 2015 shows laminectomy defects at L2-L5 and redemonstration of intradural foci of enhancement in the lower lumbar spine and severe central spinal canal stenosis at L3-4 Interval history: Still with significant pain that radiates from his back down into his lower extremities. Right leg is more painful than the left. Pain is constant and varies in intensity. He is on oxycodone and hydromorphone. Last dose of Dilaudid was yesterday morning. 1. MRI lumbar spine with and without contrast. Consider neurosurgical evaluation based on MRI results 2. Neuropathy lab work-up: B12 was 458, folate 8.8, TSH 3.99. SPEP and immunofixation negative 3. Hemoglobin A1c pending 4. Febrile with T-max overnight 100.6 at noon yesterday. UTI. Urine culture negative at 2 days. Blood cultures are pending. Chest x-ray shows marked improvement of diffuse groundglass parenchymal densities representing decreased pulmonary edema. Minimal residual basilar pleural-parenchymal densities. Unchanged cardiomegaly. Treatment per primary team 5. COVID-19 negative 6. PT/OT recommend SNF 7. We will follow Code(s): R29.6 - Repeated falls Status: Acute Documented By: MEI Tristan [id number] Signed By: <Electronically signed by MEI Knight> 01/13/22 1520 [facility] Work Phone: [phone]) 422-134011-09-2022 Progress note Author Raji [facility] January 13, 2022 3:44pm Note Date/Time January 13, 2022 3 :27pm [facility] EN[facility] [address] [place] [address] Hospitalist Progress Note Signed Patient: Irineo Wallis MR# : [id number] : 1940 Acct:[id number] Age/Sex: 81 / M Adm Date: 2 Loc: 3T Room: [address] [place] [address] Type: ADM IN Attending Dr: Raji Ennis MD Copies to: ~ Date of Service: 01/13/2022 Subjective Subjective Narrative: patient seen and examined. He is comfortably sitting in chair having lunch. He is awake, alert and oriented. Able to answer questions appropriately. Denies anysob, cough, chest pain. He has not had any fever since yesterday afternoon. States that he slept well last night. Exam Physical Exam Vital Signs: Temp Pulse Resp BP Pulse Ox O2 Del Method O2 Flow Rate 98.3 F 56 L 12 150/74 H 98 Room Air 1 01/13/22 08:00 01/13/22 12:00 01/13/22 12:00 01/13/22 12:00 01/13/22 12:00 01/13/22 14:00 01/11/22 04:50 Narrative: General: awake, alert and oriented. HEENT: Normocephalic, atraumatic, PERRLA, normal mucosa Cardiovascular: Irregular rate and rhythm , S1-S2 heard, no murmurs or gallops Lungs: No wheezing or rhonchi heard Gastrointestinal: Soft, nontender, bowel sounds heard Extremities: 1+ edema in legs bilaterally Neurological: no sensory or motor deficit Skin: Dry and warm, no rashes or lesions Psych: Normal mood and affect Objective Lab Results CBC & Chem 7: 01/13/22 07:28 01/13/22 07:28 Microbiology Results Microbiology 01/12/22 13:30 Blood - Left Antecubital Blood Culture - Preliminary No Growth 1 Day 01/12/22 13:33 Blood - Left Hand Blood Culture - Preliminary No Growth 1 Day Meds Allergies and Active Meds Allergies fentanyl Allergy (Verified 01/09/22 09:38) Dizziness indomethacin [From Indocin] Allergy (Verified 01/09/22 09:38) Dizziness Penicillins Allergy (Verified 01/09/22 09:38) Weakness zolpidem [From Ambien] Adverse Reaction (Verified 01/09/22 09:38) Confusion Active Meds: Active Medications Generic Name Dose Route Start Last Admin Trade Name Freq PRN Reason Stop Dose Admin Acetaminophen 650 mg 01/09/22 14:41 01/12/22 11:38 Acetaminophen 325 Mg Tablet PO 01/09/23 14:40 650 mg Q6HR PRN Administration Pain Scale 1 - 3 or fever Allopurinol 300 mg 01/10/22 09:00 01/13/22 09:43 Allopurinol 300 Mg Tablet PO 01/10/23 08:59 300 mg DAILY ANIBAL Administration Apixaban 5 mg 01/09/22 21:00 01/13/22 09:43 Apixaban 5 Mg Tablet PO 01/09/23 20:59 5 mg BID ANIBAL Administration Atorvastatin Calcium 40 mg 01/09/22 22:00 01/12/22 22:51 Atorvastatin 40 Mg Tablet PO 01/09/23 21:59 40 mg QHS ANIBAL Administration Bisacodyl 10 mg 01/09/22 14:41 Bisacodyl 10 Mg Supp.Rect DC 01/09/23 14:40 DAILY PRN Constipation Bisacodyl 10 mg 01/09/22 14:41 01/12/22 08:22 Bisacodyl 5 Mg Tablet.Dr PO 01/09/23 14:40 10 mg DAILY PRN Administration Constipation Bumetanide 1 mg 01/13/22 16:00 Bumetanide 1 Mg Tablet PO 01/13/23 15:59 BID@0800,1600 [facility] Docusate Sodium 100 mg 01/09/22 21:00 01/13/22 09:43 Docusate 100 Mg Capsule PO 01/09/23 20:59 100 mg BID ANIBAL Administration Fluticasone Propionate 1 spray 01/09/22 15:17 Fluticasone Propionate [place] 120 [place]/16 Gm Bottle NARES-BOTH 01/09/23 15:16 QHS PRN Nasal Congestion Magnesium Sulfate 2 gm in 50 mls @ 25 mls/hr 01/09/22 14:41 Magnesium Sulf 2gm-*Swfi* IV 01/09/23 14:40 DAILY PRN Magnesium Level < 1.5 Cefepime HCl 2 gm in 50 mls @ 100 mls/hr 01/12/22 15:06 01/13/22 03:07 Maxipime IV 100 mls/hr Q12H ANIBAL Administration Levothyroxine Sodium 150 mcg 01/10/22 06:30 01/13/22 06:26 Levothyroxine 150 Mcg Tablet PO 01/10/23 06:29 150 mcg DAILY@0630 ANIBAL Administration Magnesium Hydroxide 30 ml 01/09/22 14:41 Magnesium Hydroxide Susp 30 Ml Udc PO 01/09/23 14:40 BID PRN Constipation Magnesium Oxide 400 mg 01/10/22 09:00 01/13/22 09:43 Magnesium Oxide 400 Mg Tablet PO 01/10/23 08:59 400 mg DAILY ANIBAL Administration Nitroglycerin 0.4 mg 01/09/22 14:41 Nitroglycerin 0.4 Mg Tab.Subl SUBLINGUAL 01/09/23 14:40 Q5MIN.X3 PRN Chest Pain Pom Eszopiclone 3 Mg 3 mg 01/11/22 22:00 01/12/22 22:51 Tablet PO 01/11/23 21:59 3 mg HS ANIBAL Administration Nystatin 1 applic 01/09/22 22:00 01/13/22 09:43 Nystatin 100,000 Unit/Gram Powder 15 Gm Bottle TOPICAL 01/09/23 21:59 1 applic TID ANIBAL Administration Ondansetron HCl 4 mg 01/09/22 14:41 Ondansetron 4 Mg/2 Ml Vial IV-PUSH 01/09/23 14:40 Q8H PRN Nausea And Vomiting Oxycodone/Acetaminophen 1 tab 01/13/22 14:26 Oxycodone/Acetaminophen 5-325 Mg Tablet PO Q8H PRN Moderate Pain Potassium Chloride 20 meq 01/09/22 14:41 01/11/22 08:43 Potassium Chloride Er 20 Meq Tab.Er.Prt PO 01/09/23 14:40 20 meq DAILY PRN Administration Hypokalemia Potassium Chloride 40 meq 01/09/22 14:41 Potassium Chloride Er 20 Meq Tab.Er.Prt PO 01/09/23 14:40 DAILY PRN Hypokalemia Potassium Chloride 20 meq 01/09/22 21:00 01/12/22 22:51 Potassium Chloride Er 20 Meq Tab.Er.Prt PO 01/09/23 20:59 20 meq QPM ANIBAL Administration Sodium Chloride 0 ml 01/09/22 09:38 01/10/22 23:31 Sodium Chloride 0.9 % 10 Ml Syringe IV-PUSH 01/09/23 09:37 10 ml PRN PRN Administration Flush Sodium Chloride 0 ml 01/09/22 22:00 01/13/22 06:26 Sodium Chloride 0.9 % 10 Ml Syringe IV-PUSH 01/09/23 21:59 10 ml QSHIFT ANIBAL Administration Vancomycin HCl 1 each 01/12/22 14:20 Vancomycin - Pharmacy Dosing 1 Each Miscell IV ONCE PRN ZZ.Pharmacy Consult Protocol A&P - Hospitalist Assessment/Plan (1) Acute on chronic congestive heart failure with left ventricular diastolic dysfunction: (2) Falls frequently: (3) Difficulty walking: (4) Bladder retention: (5) Constipation: (6) Acute respiratory failure with hypoxia: (7) Pleural effusion: (8) Atrial fibrillation: (9) Hypertension: (10) Anasarca: (11) Generalized weakness: (12) Impaired activities of daily living: (13) Sleep apnea: (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 Denies any complaints. Has been hemodynamically stable and afebrile since yesterday. No leukocytosis Chest x-ray showed no signs of infection. Blood cultures pending. ID on board. Continue antibiotics. Cardiology on board, digoxin and Coreg has been on hold with no signs of bradycardia. Plan to reinitiate Coreg in near future. Echocardiogram showed normal EF with mild to moderate left ventricular hypertrophy, moderate pulmonary hypertension. Carotid Doppler showed no hemodynamically significant stenosis in either extracranial ICA, both vertebral arteries are patent with antegrade flow MRI of the lumbar spine showed multilevel degenerative changes with mild to moderate canal stenosis. Has good urine output with aggressive IV diuresis. Will switch IV to PO. Monitor electrolytes Fall precautions PT/OT DVT prophylaxis Documented By: Raji Ennis MD 01/13/22 1524 Signed By: <Electronically signed by Raji Ennis MD> 01/13/22 1544 [facility] Work Phone: [phone] Consult note Author Victor Manuel Reynolds [facility] January 13, 2022 10:45am Note Date/Time January 13, 2022 1 0:45am [facility] EN[facility] [address] [place] [address] Infect. Disease Consult Note Signed Patient: Irineo Wallis Jr MR# : [id number] : 1940 Acct:[id number] Age/Sex: 81 / M Adm Date: 2 Loc: Room: [address] [place] [address] Type: ADM IN Attending Dr: Raji Ennis MD Copies to: MD Feliciano Giles DO Michael S Blank, MD~ HPI Data of Consult Consult date: 01/13/22 Requesting Physician: Raji Ennis MD Primary Care Provider: Feliciano Ga DO Consult Narrative History of present illness: Mr. Wallis is a 81 year old male who was admitted back on the fifth and at thattime was afebrile. He came into the hospital after having falls at home. Laboratory data and imaging suggested acute on chronic congestive heart failure so he was managed for this. Patient has multiple bandages and Band-Aids on his extremities and states he when he fell he has road rash now. Patient states none of these are really that tender. He states he has pain when he walks but this is not new. Patient's vital signs have shown that he is essentially had normal vital signs up until yesterday when he spiked low-grade fever to T-max 100.6. This normalized overnight and he is afebrile this morning. When the fever occurred blood cultures were sent and empiric vancomycin and cefepime werestarted. Chest x-ray also was obtained that showed improving pulmonary edema. No urine analysis urine culture was sent. Patient sitting in his recliner todaynext was bed and states he still feels overall weak. He states he has pain in his joints. He does not complain of any significant localizing 1 pain more thanthe other. CC: Raji Ennis MD Review of Systems Review of Systems All other systems reviewed & are negative unless noted below or in HPI [facility] Attestation Statement: The following information was validated with the patient. Vaccinated for COVID-19?: Yes Medical History (Updated 01/13/22 @ 10:41 by Victor Manuel Reynolds MD) Atrial fibrillation BPH (benign prostatic hyperplasia) Chronic CHF DJD (degenerative joint disease) History of gastric ulcer 1959' Hypothyroidism 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 Osteoarthritis Renal calculi Sleep apnea does not use equipment Surgical History History of endoscopic sinus surgery 1989' History of excision of Zenker's diverticulum Transcervial resection 2009 History of lithotripsy Left ; with cyst, stents () History of repair of rotator cuff Bilateral- History of total left hip arthroplasty 2011 History of total left knee replacement History of total right knee replacement 2014 Hx of decompressive lumbar laminectomy 2010-with tumor resection Family History Mother Alzheimers disease Hx of CABG CAD (coronary artery disease) Myocardial infarct Brother Myocardial infarct Father Cirrhosis Sister Cancer Social History Smoking Status: Former smoker Tobacco Type: cigarettes Substance Use Type: Alcohol Substance Abuse Comment: 3 drinks a day >6 Allergies and Medications Allergies and Active Meds Allergies fentanyl Allergy (Verified 01/09/22 09:38) Dizziness indomethacin [From Indocin] Allergy (Verified 01/09/22 09:38) Dizziness Penicillins Allergy (Verified 01/09/22 09:38) Weakness zolpidem [From Ambien] Adverse Reaction (Verified 01/09/22 09:38) Confusion Active Medications Acetaminophen (Acetaminophen 325 Mg Tablet) 650 mg PO Q6HR PRN PRN Reason: Pain Scale 1 - 3 or fever Stop: 01/09/23 14:40 Last Admin: 01/12/22 11:38 Dose: 650 mg Allopurinol (Allopurinol 300 Mg Tablet) 300 mg PO DAILY ANIBAL Stop: 01/10/23 08:59 Last Admin: 01/13/22 09:43 Dose: 300 mg Apixaban (Apixaban 5 Mg Tablet) 5 mg PO BID ANIBAL Stop: 01/09/23 20:59 Last Admin: 01/13/22 09:43 Dose: 5 mg Atorvastatin Calcium (Atorvastatin 40 Mg Tablet) 40 mg PO QHS ANIBAL Stop: 01/09/23 21:59 Last Admin: 01/12/22 22:51 Dose: 40 mg Bisacodyl (Bisacodyl 10 Mg Supp.Rect) 10 mg DC DAILY PRN PRN Reason: Constipation Stop: 01/09/23 14:40 Bisacodyl (Bisacodyl 5 Mg Tablet.Dr) 10 mg PO DAILY PRN PRN Reason: Constipation Stop: 01/09/23 14:40 Last Admin: 01/12/22 08:22 Dose: 10 mg Bumetanide (Bumetanide 1 Mg/4 Ml Vial) 1 mg IV-PUSH BID@0800,1600 ANIBAL Stop: 01/13/23 07:59 Last Admin: 01/13/22 09:43 Dose: 1 mg Docusate Sodium (Docusate 100 Mg Capsule) 100 mg PO BID [facility] Stop: 01/09/23 20:59 Last Admin: 01/13/22 09:43 Dose: 100 mg Fluticasone Propionate (Fluticasone Propionate [place] 120 [place]/16 Gm Bottle) 1 spray NARES-BOTH QHS PRN PRN Reason: Nasal Congestion Stop: 01/09/23 15:16 Magnesium Sulfate (Magnesium Sulf 2gm-*Swfi*) 2 gm in 50 mls @ 25 mls/hr IV DAILY PRN PRN Reason: Magnesium Level < 1.5 Stop: 01/09/23 14:40 Cefepime HCl (Maxipime) 2 gm in 50 mls @ 100 mls/hr IV Q12H [facility] Last Admin: 01/13/22 03:07 Dose: 100 mls/hr Levothyroxine Sodium (Levothyroxine 150 Mcg Tablet) 150 mcg PO DAILY@0630 [facility] Stop: 01/10/23 06:29 Last Admin: 01/13/22 06:26 Dose: 150 mcg Magnesium Hydroxide (Magnesium Hydroxide Susp 30 Ml Udc) 30 ml PO BID PRN PRN Reason: Constipation Stop: 01/09/23 14:40 Magnesium Oxide (Magnesium Oxide 400 Mg Tablet) 400 mg PO DAILY [facility] Stop: 01/10/23 08:59 Last Admin: 01/13/22 09:43 Dose: 400 mg Nitroglycerin (Nitroglycerin 0.4 Mg Tab.Subl) 0.4 mg SUBLINGUAL Q5MIN.X3 PRN PRN Reason: Chest Pain Stop: 01/09/23 14:40 Pom Eszopiclone 3 Mg (Tablet) 3 mg PO HS [facility] Stop: 01/11/23 21:59 Last Admin: 01/12/22 22:51 Dose: 3 mg Nystatin (Nystatin 100,000 Unit/Gram Powder 15 Gm Bottle) 1 applic TOPICAL TID [facility] Stop: 01/09/23 21:59 Last Admin: 01/13/22 09:43 Dose: 1 applic Ondansetron HCl (Ondansetron 4 Mg/2 Ml Vial) 4 mg IV-PUSH Q8H PRN PRN Reason: Nausea And Vomiting Stop: 01/09/23 14:40 Oxycodone HCl (Oxycodone Ir 5 Mg Tablet) 5 mg PO Q4HR PRN PRN Reason: Pain Scale 4 - 7 Last Admin: 01/13/22 09:43 Dose: 5 mg Potassium Chloride (Potassium Chloride Er 20 Meq Tab.Er.Prt) 20 meq PO DAILY PRN PRN Reason: Hypokalemia Stop: 01/09/23 14:40 Last Admin: 01/11/22 08:43 Dose: 20 meq Potassium Chloride (Potassium Chloride Er 20 Meq Tab.Er.Prt) 40 meq PO DAILY PRN PRN Reason: Hypokalemia Stop: 01/09/23 14:40 Potassium Chloride (Potassium Chloride Er 20 Meq Tab.Er.Prt) 20 meq PO QPM ANIBAL Stop: 01/09/23 20:59 Last Admin: 01/12/22 22:51 Dose: 20 meq Sodium Chloride (Sodium Chloride 0.9 % 10 Ml Syringe) 0 ml IV-PUSH PRN PRN PRN Reason: Flush Stop: 01/09/23 09:37 Last Admin: 01/10/22 23:31 Dose: 10 ml Sodium Chloride (Sodium Chloride 0.9 % 10 Ml Syringe) 0 ml IV-PUSH QSHIFT ANIBAL Stop: 01/09/23 21:59 Last Admin: 01/13/22 06:26 Dose: 10 ml Vancomycin HCl (Vancomycin - Pharmacy Dosing 1 Each Miscell) 1 each IV ONCE PRN; Protocol PRN Reason: ZZ.Pharmacy Consult Exam Physical Exam Vital Signs: Vital Signs Temp Pulse Resp BP Pulse Ox O2 Del Method 01/13/22 08:00 Room Air 01/13/22 04:00 98.7 F 73 18 102/49 L 90 L Room Air 01/13/22 00:00 Room Air 01/12/22 20:00 Room Air 01/12/22 23:11 98.7 F 77 18 123/70 92 L Room Air 01/12/22 20:00 98.3 F 67 18 133/65 95 Room Air 01/12/22 16:00 Room Air 01/12/22 15:55 98.8 F 01/12/22 15:25 Room Air 01/12/22 15:15 100.0 F H 51 L 18 118/67 93 L Room Air 01/12/22 13:35 99.6 F H 01/12/22 12:59 100.4 F H 01/12/22 12:10 100.6 F H 01/12/22 11:31 100.2 F H 60 16 161/93 H 93 L Room Air 01/12/22 11:30 Room Air Const General: comfortable and no acute distress Orientation: oriented x3 HEENT Head: normal to inspection Nose: external nose normal Face and sinus: normal facial exam Mouth: oral mucosae normal Eyes General: appearance normal, both eyes and all related structures Neck Neck: normal visual inspection Chest Chest palpation & inspection: normal inspection of the chest Resp Effort & Inspection: normal respiratory effort, able to speak in complete sentences and symmetric chest movement Auscultation: clear to auscultation bilaterally Cardio Palpation: normal PMI Rate: regular rate GI Inspection: normal to inspection Palpation: soft and nontender General: other (chou) Skin General: other (multiple areas with bandages from traumas when he fell) Neuro General: patient oriented x3 Extrem Other: edema of gem LE. R ankle with chronic changes; Pain with palpation. NO erythema/warmth Results Labs CBC & Chem 7: 01/13/22 07:28 01/13/22 07:28 Labs: 01/13/22 07:28: Corrected WBC 9.4, Uncorrected WBC Count 9.4 01/13/22 07:28: BUN 24 H, Creatinine 1.44 H Microbiology Results Microbiology Narrative: 01/12/22 13:30 Blood Culture - Pending Blood - Left Antecubital 01/12/22 13:33 Blood Culture - Pending Blood - Left Hand 01/09/22 12:42 Urine Culture - Final Urine - Clean-Voided Midstream 30,000 colonies/ml mixed bacterial skin contaminants 2 Days Imaging and Cardiology Results Comments: Lumbar spine and thoracic spine CT done on admission without fracture or vertebral displacement. MRI of the lumbar spine pending from yesterday. 01/12/22 Chest x- ray with resolving pulmonary edema. A&P - Infectious Disease (1) Fever: Status: Acute Plan Patient in the hospital after falling at home. Patient without elevated white count or fever for the most part this hospital stay. Yesterday his temperature was raised for period of time and got to the high as 100.6. Given this blood cultures were sent chest x-ray was repeated. Empiric vancomycin and cefepime were started. 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 He has a documented spine surgery thatdates back to 1988 where this was resected. Given this history he is being further evaluated now with an MRI that is pending. CT scan of the lumbar and thoracic spine on admission did not show any type of fracture or concern. Giventhat he was already started on broad-spectrum antibiotic therapy yesterday would like to wait for cultures to return. Favor obtaining UA and urine culture as this was not done yesterday and I realize he was given antibiotics but he does have a chronic Chou and could easily have a urinary tract infection as well. Given his chronic swelling of his lower extremities and the ankle pain with discomfort we will check a serum uric acid but clinically he does not have any joints that appear consistent with acute gout. Documented By: Victor Manuel Reynolds MD 01/13/22 1033 Signed By: <Electronically signed by MD Victor Manuel Reynolds> 01/13/22 1045 [facility] Work Phone: [phone] 160-234411-08-2022 Progress note Author W Be Mcintyre [facility] January 12, 2022 6:11pm Note Date/Time January 12, 2022 6 :11pm [facility] [address] [place] [address] Cardiology Progress Note Signed Patient: Irineo Wallis Jr MR# : [id number] : 1940 Acct:[id number] Age/Sex: 81 / M Adm Date: 2 Loc: Room: [address] [place] [address] Type: ADM IN Attending Dr: Raji Ennis MD Copies to: ~ Date of Service: 01/12/2022 Subjective Principal diagnosis: Atrial fibrillation, bradycardia, diastolic CHF Interval history: Mr. Wallis endorses improved shortness of breath today. Edema in b/l LE continues to diminish. Patient continues to remain in normal rate without episode of bradycardia with heart rate ranging 67-58 in the past 24 hours. Saturating well on room air. Patient denies acute chest pain, nausea, vomiting, acute neurologic deficit. Attending note: I have seen this patient in conjunction with medical student Ramon Luis and concur with his examination and assessment. Bradycardia is resolved, edema is resolving very nicely with good diuresis. Neurology consultation reviewed. We will continue with anticoagulation, rate control, long-term diuretics for diastolic heart failure/edema, follow-up with nurse practitioner in the next 4 to 6 weeks. Exam Physical Exam Vital Signs: Temp Pulse Resp BP Pulse Ox O2 Del Method O2 Flow Rate 98.8 F 51 L 18 118/67 93 L Room Air 1 01/12/22 15:55 01/12/22 15:15 01/12/22 15:15 01/12/22 15:15 01/12/22 15:15 01/12/22 16:00 01/11/22 04:50 Narrative: Const General: cooperative, comfortable and no acute distress Nutritional Appearance: average body habitus and edematous Orientation: alert, awake and oriented x3 HEENT Head: normal to inspection Resp Effort & Inspection: normal respiratory effort and able to speak in complete sentences Auscultation: clear to auscultation bilaterally Cardio Rhythm: abnormal rhythm Heart Sounds: S1 normal and S2 normal GI Palpation: soft Neuro General: patient alert, patient awake and patient oriented x3 Cognition: normal cognition Speech: speech normal Extrem General: improving edema Const General: cooperative, comfortable and no acute distress Nutritional Appearance: average body habitus and edematous Orientation: alert, awake and oriented x3 HEENT Head: normal to inspection Resp Effort & Inspection: normal respiratory effort and able to speak in complete sentences Auscultation: clear to auscultation bilaterally Cardio Rhythm: abnormal rhythm Heart Sounds: S1 normal and S2 normal GI Palpation: soft Neuro General: patient alert, patient awake and patient oriented x3 Cognition: normal cognition Speech: speech normal Extrem General: edema Objective Labs CBC & Chem 7: 01/12/22 06:42 01/12/22 06:42 Labs: Laboratory Results - last 24 hr 01/11/22 01/12/22 01/12/22 06:32 06:42 06:42 Corrected WBC 10.1 Uncorrected WBC Count 10.1 RBC 3.85 L Hgb 12.9 L Hct 38.8 MCV 100.8 MCH 33.6 MCHC 33.3 RDW 15.5 H Plt Count 214 MPV 8.8 Neut % (Auto) 76.3 Lymph % (Auto) 12.2 [place] % (Auto) 9.1 Eos % (Auto) 1.9 Baso % (Auto) 0.5 Neut # (Auto) 7.7 Lymph # (Auto) 1.2 [place] # (Auto) 0.9 H Eos # (Auto) 0.2 Baso # (Auto) 0.1 Nucleated RBC % (auto) 0.1 PHA Creatinine Clear 40.96 Sodium 132 L Potassium 3.8 Chloride 94 L Carbon Dioxide 31.4 H Anion Gap 10.4 BUN 22 Creatinine 1.53 H Est GFR ( Amer) 53 Est GFR (Non-Af Amer) 44 Glucose 99 Calcium 8.9 C-Reactive Prot, Quant Serum Total Protein 5.3 L Albumin (Send Out) 2.9 Globulin (PEP) 2.4 Albumin/Globulin (PEP) 1.2 Yiesn-3-Vrpvkabin 0.4 Tmtmo-6-Hegwinwiz 0.7 Beta Globulins 0.6 L Gamma Globulins 0.8 M-Franky Not observed PEP Note IgG 816 IgA 171 IgM 105 Serum Immunofixation 01/12/22 06:42 Corrected WBC Uncorrected WBC Count RBC Hgb Hct MCV MCH MCHC RDW Plt Count MPV Neut % (Auto) Lymph % (Auto) [place] % (Auto) Eos % (Auto) Baso % (Auto) Neut # (Auto) Lymph # (Auto) [place] # (Auto) Eos # (Auto) Baso # (Auto) Nucleated RBC % (auto) PHA Creatinine Clear Sodium Potassium Chloride Carbon Dioxide Anion Gap BUN Creatinine Est GFR ( Amer) Est GFR (Non-Af Amer) Glucose Calcium C-Reactive Prot, Quant 8.4 H Serum Total Protein Albumin (Send Out) Globulin (PEP) Albumin/Globulin (PEP) Xmjcg-4-Cjixrmvpi Yqcvv-6-Psxaizbmp Beta Globulins Gamma Globulins M-Franky PEP Note IgG IgA IgM Serum Immunofixation A&P - Cardiology (1) HFrEF (heart failure with reduced ejection fraction): Assessment/Problem Details: Appears to be for the most part compensated.? We will repeat echocardiogram to reassess ejection fraction especially in view of the lower extremity edema despite medical therapy. Code(s): I50.20 - Unspecified systolic (congestive) heart failure Status: Acute Plan: Continue to hold carvedilol and digoxin No need for pacemaker (2) Atrial fibrillation: Assessment/Problem Details: This is chronic and managed with rate control anticoagulation. He is currently having significant pauses on telemetry. He is currently on 2 agents to contribute to this including digoxin and Coreg. Code(s): I48.91 - Unspecified atrial fibrillation Status: Chronic Plan: We will potentially reinitiate low-dose carvedilol in the future (3) Bradycardia: Assessment/Problem Details: Caused by atrial fibrillation with slow ventricular response on 2 agents contributing to bradycardia that is digoxin and Coreg. Code(s): R00.1 - Bradycardia, unspecified Status: Acute Documented By: Bhupinder Mcintyre DO 01/12/22 1650 Signed By: <Electronically signed by Bhupinder Mcintyre DO> 01/12/22 1811 [facility] Work Phone: [phone] Progress note Author Raji Ennis [facility] January 12, 2022 4:38pm Note Date/Time January 12, 2022 4 :38pm [facility] [address] [place] [address] Hospitalist Progress Note Signed Patient: Irineo Wallis Jr MR# : [id number] : 1940 Acct:[id number] Age/Sex: 81 / M Adm Date: 2 Loc: Room: [address] [place] [address] Type: ADM IN Attending Dr: Raji Ennis MD Copies to: ~ Date of Service: 01/12/2022 Subjective Subjective Narrative: Patient seen and examined. Patient appears slightly lethargic and is confused. He could tell me his name but could not tell me the place or time. Per RN patient was awake, alert and oriented early in the morning but appeared confusedafter receiving Dilaudid for lower back pain. He also had a temperature of 100.6 which is new. Patient does not endorse worsening of cough, shortness of breath, chest pain, nausea, vomiting, abdominal pain. Exam Physical Exam Vital Signs: Temp Pulse Resp BP Pulse Ox O2 Del Method O2 Flow Rate 98.8 F 51 L 18 118/67 93 L Room Air 1 01/12/22 15:55 01/12/22 15:15 01/12/22 15:15 01/12/22 15:15 01/12/22 15:15 01/12/22 16:00 01/11/22 04:50 Narrative: General: Lethargic but is easily arousable and is oriented to person only HEENT: Normocephalic, atraumatic, PERRLA, normal mucosa Cardiovascular: Irregular rate and rhythm , S1-S2 heard, no murmurs or gallops Lungs: No wheezing or rhonchi heard Gastrointestinal: Soft, nontender, bowel sounds heard Extremities: 1+ edema in legs bilaterally Neurological: no sensory or motor deficit Skin: Dry and warm, no rashes or lesions Psych: Normal mood and affect Objective Lab Results CBC & Chem 7: 01/12/22 06:42 01/12/22 06:42 Meds Allergies and Active Meds Allergies fentanyl Allergy (Verified 01/09/22 09:38) Dizziness indomethacin [From Indocin] Allergy (Verified 01/09/22 09:38) Dizziness Penicillins Allergy (Verified 01/09/22 09:38) Weakness zolpidem [From Ambien] Adverse Reaction (Verified 01/09/22 09:38) Confusion Active Meds: Active Medications Generic Name Dose Route Start Last Admin Trade Name Freq PRN Reason Stop Dose Admin Acetaminophen 650 mg 01/09/22 14:41 01/12/22 11:38 Acetaminophen 325 Mg Tablet PO 01/09/23 14:40 650 mg Q6HR PRN Administration Pain Scale 1 - 3 or fever Allopurinol 300 mg 01/10/22 09:00 01/12/22 08:22 Allopurinol 300 Mg Tablet PO 01/10/23 08:59 300 mg DAILY ANIBAL Administration Apixaban 5 mg 01/09/22 21:00 01/12/22 08:22 Apixaban 5 Mg Tablet PO 01/09/23 20:59 5 mg BID ANIBAL Administration Atorvastatin Calcium 40 mg 01/09/22 22:00 01/11/22 21:53 Atorvastatin 40 Mg Tablet PO 01/09/23 21:59 40 mg QHS ANIBAL Administration Bisacodyl 10 mg 01/09/22 14:41 Bisacodyl 10 Mg Supp.Rect DC 01/09/23 14:40 DAILY PRN Constipation Bisacodyl 10 mg 01/09/22 14:41 01/12/22 08:22 Bisacodyl 5 Mg Tablet.Dr PO 01/09/23 14:40 10 mg DAILY PRN Administration Constipation Bumetanide 1 mg 01/09/22 15:30 01/12/22 14:53 Bumetanide 1 Mg/4 Ml Vial IV-PUSH 01/09/23 15:29 1 mg Q8H ANIBAL Administration Docusate Sodium 100 mg 01/09/22 21:00 01/12/22 08:22 Docusate 100 Mg Capsule PO 01/09/23 20:59 100 mg BID ANIBAL Administration Fluticasone Propionate 1 spray 01/09/22 15:17 Fluticasone Propionate [place] 120 [place]/16 Gm Bottle NARES-BOTH 01/09/23 15:16 QHS PRN Nasal Congestion Magnesium Sulfate 2 gm in 50 mls @ 25 mls/hr 01/09/22 14:41 Magnesium Sulf 2gm-*Swfi* IV 01/09/23 14:40 DAILY PRN Magnesium Level < 1.5 Vancomycin HCl 1.5 gm/ 530 mls @ 353.333 mls/hr 01/12/22 15:30 01/12/22 15:50 Dextrose IV 01/12/22 16:59 353.33 mls/hr ONCE ONE Administration Cefepime HCl 2 gm in 50 mls @ 100 mls/hr 01/12/22 15:06 01/12/22 15:50 Maxipime IV Infused Q12H ANIBAL Infusion Levothyroxine Sodium 150 mcg 01/10/22 06:30 01/12/22 05:47 Levothyroxine 150 Mcg Tablet PO 01/10/23 06:29 150 mcg DAILY@0630 ANIBAL Administration Magnesium Hydroxide 30 ml 01/09/22 14:41 Magnesium Hydroxide Susp 30 Ml Udc PO 01/09/23 14:40 BID PRN Constipation Magnesium Oxide 400 mg 01/10/22 09:00 01/12/22 08:22 Magnesium Oxide 400 Mg Tablet PO 01/10/23 08:59 400 mg DAILY ANIBAL Administration Nitroglycerin 0.4 mg 01/09/22 14:41 Nitroglycerin 0.4 Mg Tab.Subl SUBLINGUAL 01/09/23 14:40 Q5MIN.X3 PRN Chest Pain Pom Eszopiclone 3 Mg 3 mg 01/11/22 22:00 01/11/22 21:54 Tablet PO 01/11/23 21:59 3 mg HS ANIBAL Administration Nystatin 1 applic 01/09/22 22:00 01/12/22 13:35 Nystatin 100,000 Unit/Gram Powder 15 Gm Bottle TOPICAL 01/09/23 21:59 1 applic TID ANIBAL Administration Ondansetron HCl 4 mg 01/09/22 14:41 Ondansetron 4 Mg/2 Ml Vial IV-PUSH 01/09/23 14:40 Q8H PRN Nausea And Vomiting Oxycodone HCl 5 mg 01/09/22 14:41 01/12/22 05:46 Oxycodone Ir 5 Mg Tablet PO 5 mg Q4HR PRN Administration Pain Scale 4 - 7 Potassium Chloride 20 meq 01/09/22 14:41 01/11/22 08:43 Potassium Chloride Er 20 Meq Tab.Er.Prt PO 01/09/23 14:40 20 meq DAILY PRN Administration Hypokalemia Potassium Chloride 40 meq 01/09/22 14:41 Potassium Chloride Er 20 Meq Tab.Er.Prt PO 01/09/23 14:40 DAILY PRN Hypokalemia Potassium Chloride 20 meq 01/09/22 21:00 01/11/22 21:53 Potassium Chloride Er 20 Meq Tab.Er.Prt PO 01/09/23 20:59 20 meq QPM ANIBAL Administration Sodium Chloride 0 ml 01/09/22 09:38 01/10/22 23:31 Sodium Chloride 0.9 % 10 Ml Syringe IV-PUSH 01/09/23 09:37 10 ml PRN PRN Administration Flush Sodium Chloride 0 ml 01/09/22 22:00 01/12/22 13:35 Sodium Chloride 0.9 % 10 Ml Syringe IV-PUSH 01/09/23 21:59 10 ml QSHIFT ANIBAL Administration Vancomycin HCl 1 each 01/12/22 14:20 Vancomycin - Pharmacy Dosing 1 Each Miscell IV ONCE PRN ZZ.Pharmacy Consult Protocol A&P - Hospitalist Assessment/Plan (1) Acute on chronic congestive heart failure with left ventricular diastolic dysfunction: (2) Falls frequently: (3) Difficulty walking: (4) Bladder retention: (5) Constipation: (6) Acute respiratory failure with hypoxia: (7) Pleural effusion: (8) Atrial fibrillation: (9) Hypertension: (10) Anasarca: (11) Generalized weakness: (12) Impaired activities of daily living: (13) Sleep apnea: (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 Urine culture done couple days ago showed bacterial skin contaminants CRP 8.4. Etiology for confusion and fever is unclear at this time. Will obtainblood cultures and start prophylactic antibiotics and consult ID Cardiology on board, digoxin and Coreg has been on hold with no signs of bradycardia. Plan to reinitiate Coreg in 24 to 48 hours Echocardiogram ordered Carotid Doppler showed no hemodynamically significant stenosis in either extracranial ICA, both vertebral arteries are patent with antegrade flow MRI of the lumbar spine pending Has good urine output with aggressive IV diuresis. We will decrease frequency of Bumex to twice daily Monitor electrolytes Fall precautions PT/OT DVT prophylaxis Documented By: Raji Ennis MD 01/12/22 1631 Signed By: <Electronically signed by Raji Ennis MD> 01/12/22 1638 [facility] Work Phone: [phone]) [phone] Progress note Author Mani Dickens [facility] January 12, 2022 4:10pm Note Date/Time January 12, 2022 8 :19am [facility] [address] [place] [address] Neurology Progress Note Signed Patient: Irineo Wallis Jr MR# : [id number] : 1940 Acct:[id number] Age/Sex: 81 / M Adm Date: 2 Loc: Room: [address] [place] [address] Type: ADM IN Attending Dr: Raji Ennis MD Copies to: ~ Date of Service: 01/12/2022 Subjective Subjective Narrative: Patient is very drowsy. He did receive Dilaudid this morning for a 10 out of 10pain. He is arousable and follows directions. He is oriented to person only. Does not appear to be in distress. Review of Systems Review of Systems Other (Patient is very drowsy. Does not appear to be in distress. He does wakeup and follow directions.) Exam Physical Exam Vital Signs: Temp Pulse Resp BP Pulse Ox O2 Del Method O2 Flow Rate 97.8 F 69 16 146/69 H 94 L Room Air 1 01/12/22 04:00 01/12/22 04:00 01/12/22 04:00 01/12/22 04:00 01/12/22 04:00 01/12/22 08:00 01/11/22 04:50 Narrative: GENERAL EXAM: * Constitutional - Patient appears well nourished and well groomed * Patient is alert and oriented to person only. * Apical is regular rate. No murmur. * Lung sounds are diminished but clear NEURO EXAM: * Attention span/concentration impaired, drowsy * Speech is minimal but clear * Cranial nerve II. Vision is intact. KRISTA * Cranial nerve III, IV and . EOM grossly intact. No obvious nystagmus * Cranial nerve V and VII. No facial asymmetry is appreciated. Temperature and touch is intact * Cranial nerve VIII hearing is intact * Cranial nerve IX and X speech is minimal but clear * Cranial nerve XI head turn side to side full range of motion. Shoulder shrug is equal bilaterally * Cranial nerve XII tongue is midline full range of motion MOTOR EXAM: * Strength is 5/5 in bilateral upper extremities. No pronator drift was appreciated * 4/5 in the left lower extremity and -5/5 in the right lower extremity * Muscle tone and bulk are normal * Gait not assessed SENSORY EXAM: * Temperature and touch are intact in all 4 extremities. Decreased sensation below the knee to all modalities. CEREBELLAR EXAM: * Alternating movements are intact and normal in bilateral upper extremities * Alternating movements are intact and normal in lower extremities * Unable to test finger-nose or [id number] due to drowsiness REFLEX EXAM: * 1/4 throughout Objective Vital Signs Vital Signs: Vital Signs - 24 hr 01/11/22 08:28 01/11/22 08:28 01/11/22 11:16 Temperature 98.0 F 97.2 F L Pulse Rate 76 78 Respiratory Rate 17 18 Blood Pressure 145/77 H 105/64 02 Sat by Pulse Oximetry 92 L 95 Oxygen Delivery Method Room Air Room Air Room Air 01/11/22 15:22 01/11/22 16:00 01/11/22 20:00 Temperature 97.8 F 97.8 F Pulse Rate 67 58 L Respiratory Rate 16 16 Blood Pressure 144/88 H 135/64 02 Sat by Pulse Oximetry 95 98 Oxygen Delivery Method Room Air Room Air Room Air 01/11/22 20:00 01/12/22 00:00 01/12/22 00:00 Temperature 97.8 F Pulse Rate 64 Respiratory Rate 16 Blood Pressure 135/64 02 Sat by Pulse Oximetry 98 Oxygen Delivery Method Room Air Room Air Room Air 01/12/22 04:00 01/12/22 08:00 Temperature 97.8 F Pulse Rate 69 Respiratory Rate 16 Blood Pressure 146/69 H 02 Sat by Pulse Oximetry 94 L Oxygen Delivery Method Room Air Room Air Labs CBC & Chem 7: 01/12/22 06:42 01/12/22 06:42 Therapy Recommendations Therapy Recommendations: OT Recommendations OT Recommended Discharge Fdc Facility Location OT Recommended Services at Physical Therapy,Occupational Therapy Discharge PT Recommendations PT Recommended Discharge Fdc Facility Location PT Recommended Services at Physical Therapy,Occupational Therapy,27/09 Discharge Supervision Assessment/Plan (1) Altered mental status: Code(s): R41.82 - Altered mental status, unspecified Status: Acute (2) Falls frequently: Assessment/Problem Details: 81-year-old man with medical history of atrial fibrillation on Eliquis, congestive heart failure, obstructive sleep apnea which is untreated, and degenerative joint disease. 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 He presented to the emergency department on January 09, 2022 via EMS for evaluation of fall and injury. He got up to go to the bathroom in the middle the night with his walker and lost his balance andfell and was unable to get back up, being stuck on the floor for several hours. It sounds like there may have been some preceding dizziness that contributed. CT scan of the head and spine were unrevealing. Dr. Sesar Calvillo did the operation. They were told that when they did the resection the surgeon could not take all of it. He has subsequent spinal imaging that continues to show some evidence oftumor. He has a lot of low back pain. Some of those back pain seem to radiate into his upper thighs, which he describes as a dull ache. Chronic low back painand lower extremity weakness with progressive worsening is likely multifactorial. Symptoms into the legs and thighs may represent chronic lumbar radiculopathy. He has very little sensation in the feet, and no vibratory sensation, which likely affects his balance and suggest possible polyneuropathy. DATA REVIEW: MRI lumbar spine from July 08, 2004 shows a stable contrast-enhancing mass within the intradural space at the L2-3 level, and postsurgical changes with bilateral laminectomies at L4-5 and L5-S1 MRI lumbar spine from January 06, 2015 shows laminectomy defects at L2-L5 and redemonstration of intradural foci of enhancement in the lower lumbar spine and severe central spinal canal stenosis at L3-4 Interval history: Patient received Dilaudid morning and is very drowsy. He is able to be aroused and he is following directions. He is oriented to person only. Does not appear to be in distress. 1. MRI lumbar spine with and without contrast. Consider neurosurgical evaluation based on MRI results 2. Neuropathy lab work-up: B12 was 458, folate 8.8, TSH 3.99. SPEP and immunofixation pending 3. Hemoglobin A1c pending 4. UTI. Urine culture negative at 1 day. Treatment per primary team 5. COVID-19 negative 6. PT/OT recommend SNF 7. We will follow I personally saw this patient on the day of the encounter, reviewed the history,performed the morrison elements of the exam, formulated the plan of care and confirmed the ENGINEERING SPECIALIST TECHNICIAN note The patient is an 81-year-old man with history of cognitive impairment, atrial fibrillation on chronic anticoagulation, obstructive sleep apnea, and degenerative joint disease. 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 The patient has had increased difficulty with ambulating over the past several weeks. Patient had a CT scan of the brainwhich did not reveal evidence of an acute or chronic intracranial process which may be contributing to his symptoms. I cannot exclude recurrence of ependymoma in the lumbar spine, degenerative lumbar spine disease with lumbar canal stenosis, or polyradiculopathy contributing to lower extremity weakness. The patient has developed some confusion and has likely urinary tract infection and superimposed metabolic encephalopathy on top of baseline cognitive impairment. I will obtain an MRI of the lumbar spine and continue to make further recommendations based upon these results and the patient's clinical course. I discussed with the patient's daughter the possible diagnosis, evaluation, and treatment options. Code(s): R29.6 - Repeated falls Status: Acute Documented By: MEI Tristan 18 Signed By: <Electronically signed by MEI Knight> 01/12/22 1058 <Electronically signed by MD Mani Dickens> 01/12/22 1610 [facility] Work Phone: [phone] Progress note Author Raji [facility] January 11, 2022 5:04pm Note Date/Time January 11, 2022 5 :04pm [facility] [address] [place] [address] Hospitalist Progress Note Signed Patient: Irineo Wallis Jr MR# : [id number] : 1940 Acct:[id number] Age/Sex: 81 / M Adm Date: 2 Loc: 3T Room: [address] [place] [address] Type: ADM IN Attending Dr: Raji Ennis MD Copies to: ~ Date of Service: 01/11/2022 Subjective Subjective Narrative: Patient seen and examined. Patient is comfortably sitting in chair when I walked into the room. States that he could not sleep last night as he has to wake up to pee multiple times. Per RN patient did not take his Bumex today in the morning as he does not like to urinate frequently. He denies any other symptoms otherwise Exam Physical Exam Vital Signs: Temp Pulse Resp BP Pulse Ox O2 Del Method O2 Flow Rate 97.8 F 67 16 144/88 H 95 Room Air 1 01/11/22 15:22 01/11/22 15:22 01/11/22 15:22 01/11/22 15:22 01/11/22 15:22 01/11/22 16:00 01/11/22 04:50 Narrative: General: Awake, alert, oriented x3 not in acute distress HEENT: Normocephalic, atraumatic, PERRLA, normal mucosa Cardiovascular: Irregular rate and rhythm , S1-S2 heard, no murmurs or gallops Lungs: No wheezing or rhonchi heard Gastrointestinal: Soft, nontender, bowel sounds heard Extremities: 2+ edema in legs bilaterally Neurological: no sensory or motor deficit Skin: Dry and warm, no rashes or lesions Psych: Normal mood and affect Objective Lab Results CBC & Chem 7: 01/11/22 06:32 01/11/22 06:32 Microbiology Results Microbiology 01/09/22 12:42 Urine - Clean-Voided Midstream Urine Culture - Final 30,000 colonies/ml mixed bacterial skin contaminants 2 Days Meds Allergies and Active Meds Allergies fentanyl Allergy (Verified 01/09/22 09:38) Dizziness indomethacin [From Indocin] Allergy (Verified 01/09/22 09:38) Dizziness Penicillins Allergy (Verified 01/09/22 09:38) Weakness zolpidem [From Ambien] Adverse Reaction (Verified 01/09/22 09:38) Confusion Active Meds: Active Medications Generic Name Dose Route Start Last Admin Trade Name Freq PRN Reason Stop Dose Admin Acetaminophen 650 mg 01/09/22 14:41 01/09/22 20:15 Acetaminophen 325 Mg Tablet PO 01/09/23 14:40 650 mg Q6HR PRN Administration Pain Scale 1 - 3 or fever Allopurinol 300 mg 01/10/22 09:00 01/11/22 08:31 Allopurinol 300 Mg Tablet PO 01/10/23 08:59 300 mg DAILY ANIBAL Administration Apixaban 5 mg 01/09/22 21:00 01/11/22 08:31 Apixaban 5 Mg Tablet PO 01/09/23 20:59 5 mg BID ANIBAL Administration Atorvastatin Calcium 40 mg 01/09/22 22:00 01/10/22 21:12 Atorvastatin 40 Mg Tablet PO 01/09/23 21:59 40 mg QHS ANIBAL Administration Bisacodyl 10 mg 01/09/22 14:41 Bisacodyl 10 Mg Supp.Rect DC 01/09/23 14:40 DAILY PRN Constipation Bisacodyl 10 mg 01/09/22 14:41 Bisacodyl 5 Mg Tablet.Dr PO 01/09/23 14:40 DAILY PRN Constipation Bumetanide 1 mg 01/09/22 15:30 01/11/22 15:23 Bumetanide 1 Mg/4 Ml Vial IV-PUSH 01/09/23 15:29 1 mg Q8H ANIBAL Administration Docusate Sodium 100 mg 01/09/22 21:00 01/11/22 08:31 Docusate 100 Mg Capsule PO 01/09/23 20:59 100 mg BID ANIBAL Administration Fluticasone Propionate 1 spray 01/09/22 15:17 Fluticasone Propionate [place] [address] [place]/16 Gm Bottle NARES-BOTH 01/09/23 15:16 QHS PRN Nasal Congestion Hydromorphone HCl 0.5 mg 01/09/22 14:41 Hydromorphone 0.5 Mg/0.5 Ml Syringe IV-PUSH Q4H PRN Pain Scale 8 - 10 Magnesium Sulfate 2 gm in 50 mls @ 25 mls/hr 01/09/22 14:41 Magnesium Sulf 2gm-*Swfi* IV 01/09/23 14:40 DAILY PRN Magnesium Level < 1.5 Levothyroxine Sodium 150 mcg 01/10/22 06:30 01/11/22 07:27 Levothyroxine 150 Mcg Tablet PO 01/10/23 06:29 150 mcg DAILY@0630 ANIBAL Administration Magnesium Hydroxide 30 ml 01/09/22 14:41 Magnesium Hydroxide Susp 30 Ml Udc PO 01/09/23 14:40 BID PRN Constipation Magnesium Oxide 400 mg 01/10/22 09:00 01/11/22 08:31 Magnesium Oxide 400 Mg Tablet PO 01/10/23 08:59 400 mg DAILY ANIBAL Administration Nitroglycerin 0.4 mg 01/09/22 14:41 Nitroglycerin 0.4 Mg Tab.Subl SUBLINGUAL 01/09/23 14:40 Q5MIN.X3 PRN Chest Pain Pom Eszopiclone 3 Mg 3 mg 01/11/22 22:00 Tablet PO 01/11/23 21:59 HS [facility] Nystatin 1 applic 01/09/22 22:00 01/11/22 15:24 Nystatin 100,000 Unit/Gram Powder 15 Gm Bottle TOPICAL 01/09/23 21:59 1 applic TID ANIBAL Administration Ondansetron HCl 4 mg 01/09/22 14:41 Ondansetron 4 Mg/2 Ml Vial IV-PUSH 01/09/23 14:40 Q8H PRN Nausea And Vomiting Oxycodone HCl 5 mg 01/09/22 14:41 01/11/22 15:23 Oxycodone Ir 5 Mg Tablet PO 5 mg Q4HR PRN Administration Pain Scale 4 - 7 Potassium Chloride 20 meq 01/09/22 14:41 01/11/22 08:43 Potassium Chloride Er 20 Meq Tab.Er.Prt PO 01/09/23 14:40 20 meq DAILY PRN Administration Hypokalemia Potassium Chloride 40 meq 01/09/22 14:41 Potassium Chloride Er 20 Meq Tab.Er.Prt PO 01/09/23 14:40 DAILY PRN Hypokalemia Potassium Chloride 20 meq 01/09/22 21:00 01/10/22 21:12 Potassium Chloride Er 20 Meq Tab.Er.Prt PO 01/09/23 20:59 20 meq QPM ANIBAL Administration Sodium Chloride 0 ml 01/09/22 09:38 01/10/22 23:31 Sodium Chloride 0.9 % 10 Ml Syringe IV-PUSH 01/09/23 09:37 10 ml PRN PRN Administration Flush Sodium Chloride 0 ml 01/09/22 22:00 01/11/22 15:23 Sodium Chloride 0.9 % 10 Ml Syringe IV-PUSH 01/09/23 21:59 10 ml QSHIFT NAIBAL Administration A&P - Hospitalist Assessment/Plan (1) Acute on chronic congestive heart failure with left ventricular diastolic dysfunction: (2) Falls frequently: (3) Difficulty walking: (4) Bladder retention: (5) Constipation: (6) Acute respiratory failure with hypoxia: (7) Pleural effusion: (8) Atrial fibrillation: (9) Hypertension: (10) Anasarca: (11) Generalized weakness: (12) Impaired activities of daily living: (13) Sleep apnea: (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 Offered him Chou catheter and he is agreeable Cardiology on board, digoxin and Coreg has been on hold with no signs of bradycardia. Plan to reinitiate Coreg in 24 to 48 hours Echocardiogram ordered Carotid Doppler showed no hemodynamically significant stenosis in either extracranial ICA, both vertebral arteries are patent with antegrade flow MRI of the lumbar spine pending Urine culture showed bacterial skin contaminants Continue Bumex 1 mg IV every 8 hours. Monitor electrolytes Renal ultrasound did not show any hydroureter, and did not demonstrate an overlyfull bladder. Fall precautions PT/OT DVT prophylaxis Documented By: Raji Ennis MD 01/11/22 2617 Signed By: <Electronically signed by Raji Ennis MD> 01/11/22 1700 [facility] Work Phone: [phone]) [phone] Progress note Author Mani Dickens [facility] January 11, 2022 5:02pm Note Date/Time January 11, 2022 8 :55am [facility] EN[facility] [address] [place] [address] Neurology Progress Note Signed Patient: Irineo Wallis Jr MR# : [id number] : 1940 Acct:[id number] Age/Sex: 81 / M Adm Date: 2 Loc: 3T Room: [address] [place] [address] Type: ADM IN Attending Dr: Raji Ennis MD Copies to: ~ Date of Service: 01/11/2022 Subjective Subjective Narrative: Patient still has weakness in lower extremities. Having difficulty standing. He states he does not pass out when he falls. He does feel dizzy. Has chronic paresthesias which is not new or worse. Denies any incontinence of urine or stool. Has chronic back pain that does not radiate into his legs Review of Systems Cardiovascular Cardiovascular: Denies chest pain Respiratory Respiratory: Denies dyspnea Gastrointestinal Gastrointestinal: Denies nausea Musculoskeletal Musculoskeletal: Reports back pain, Reports muscle weakness and Denies radiatingpain into limb Neurologic Neurologic: Reports localized weakness (Bilateral lower extremity), Reports frequent falls, Reports paresthesias, Reports vertigo and Reports weakness Exam Physical Exam Vital Signs: Temp Pulse Resp BP Pulse Ox O2 Del Method O2 Flow Rate 98.0 F 76 17 145/77 H 92 L Room Air 1 01/11/22 08:28 01/11/22 08:28 01/11/22 08:28 01/11/22 08:28 01/11/22 08:28 01/11/22 08:28 01/11/22 04:50 Narrative: GENERAL EXAM: * Constitutional - Patient appears well nourished and well groomed * Patient is alert and oriented x3. NEURO EXAM: * Attention span/concentration normal * Speech is clear and fluent * Cranial nerve II. Vision is intact. KRISTA * Cranial nerve III, IV and . Extraocular muscles are intact. No nystagmus is appreciated * Cranial nerve V and VII. No facial asymmetry is appreciated. Temperature and pinprick is equal bilaterally * Cranial nerve VIII hearing is intact * Cranial nerve IX and X speech is clear fluent. Palate elevates symmetrically * Cranial nerve XI head turn side to side full range of motion. Shoulder shrug is equal bilaterally * Cranial nerve XII tongue is midline full range of motion MOTOR EXAM: * Strength is 5/5 in bilateral upper extremities. No pronator drift was appreciated * 4/5 in the left lower extremity and -5/5 in the right lower extremity * Muscle tone and bulk are normal * Gait not assessed SENSORY EXAM: * Temperature, pinprick, vibration are intact in all 4 extremities. Decreased sensation below the knee to all modalities. CEREBELLAR EXAM: * [id number] and alternating movements are intact and normal in bilateral upper extremities * Redy-th-[id number] and alternating movements are intact and normal in lower extremi ties REFLEX EXAM: * 1/ throughout Objective Vital Signs Vital Signs: Vital Signs - 24 hr 01/10/22 08:58 01/10/22 11:01 01/10/22 16:09 Temperature Pulse Rate 77 76 Respiratory Rate 16 Blood Pressure 113/73 02 Sat by Pulse Oximetry 97 97 Oxygen Delivery Method Nasal Cannula Nasal Cannula Oxygen Flow Rate 1 1 01/10/22 19:45 01/10/22 19:45 01/11/22 00:00 Temperature 97.7 F 97.7 F Pulse Rate 81 68 Respiratory Rate 16 16 Blood Pressure 121/71 124/75 02 Sat by Pulse Oximetry 96 93 L Oxygen Delivery Method Room Air Nasal Cannula Room Air Oxygen Flow Rate 1 01/11/22 00:00 01/11/22 04:50 01/11/22 08:28 Temperature 98.3 F 98.0 F Pulse Rate 71 76 Respiratory Rate 16 17 Blood Pressure 101/62 145/77 H 02 Sat by Pulse Oximetry 95 92 L Oxygen Delivery Method Room Air Room Air Room Air Oxygen Flow Rate 1 Labs CBC & Chem 7: 01/11/22 06:32 01/11/22 06:32 Therapy Recommendations Therapy Recommendations: OT Recommendations OT Recommended Discharge [facility] Facility Location OT Recommended Services at Physical Therapy,Occupational Therapy Discharge PT Recommendations PT Recommended Discharge [facility] Facility Location PT Recommended Services at Physical Therapy,Occupational Therapy,27/09 Discharge Supervision Assessment/Plan (1) Falls frequently: Assessment/Problem Details: HPI: 81-year-old man with medical history of atrial fibrillation on Eliquis, congestive heart failure, obstructive sleep apnea which is untreated, and degenerative joint disease. 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 He presented to the emergency department on January 09, 2022 via EMS for evaluation of fall and injury. He got up to go to the bathroom in the middle the night with his walker and lost his balance andfell and was unable to get back up, being stuck on the floor for several hours. It sounds like there may have been some preceding dizziness that contributed. CT scan of the head and spine were unrevealing. Dr. Sesar Calvillo did the operation. They were told that when they did the resection the surgeon could not take all of it. He has subsequent spinal imaging that continues to show some evidence oftumor. He has a lot of low back pain. Some of those back pain seem to radiate into his upper thighs, which he describes as a dull ache. Chronic low back painand lower extremity weakness with progressive worsening is likely multifactorial. Symptoms into the legs and thighs may represent chronic lumbar radiculopathy. He has very little sensation in the feet, and no vibratory sensation, which likely affects his balance and suggest possible polyneuropathy. DATA REVIEW: MRI lumbar spine from July 08, 2004 shows a stable contrast-enhancing mass within the intradural space at the L2-3 level, and postsurgical changes with bilateral laminectomies at L4-5 and L5-S1 MRI lumbar spine from January 06, 2015 shows laminectomy defects at L2-L5 and redemonstration of intradural foci of enhancement in the lower lumbar spine and severe central spinal canal stenosis at L3-4 1. MRI lumbar spine with and without contrast. Consider neurosurgical evaluation based on MRI results 2. Neuropathy lab work-up: B12 was 458, folate 8.8, TSH 3.99. SPEP and immunofixation pending 3. Hemoglobin A1c pending 4. UTI. Urine culture negative at 1 day. Treatment per primary team 5. COVID-19 negative 6. PT/OT recommend SNF 7. We will follow I personally saw this patient on the day of the encounter, reviewed the history,performed the morrison elements of the exam, formulated the plan of care and confirmed the ENGINEERING SPECIALIST TECHNICIAN note The patient is an 81-year-old man with history of atrial fibrillation on Eliquisand significant history of myxopapillary ependymoma of the lumbar spine requiring resection in 1988. The patient states that he has had progressive weakness of his lower extremities over several months. He reports significant pain in the lumbar spine which is positional and has increased over the past several months and more pronounced in the last several weeks. The patient's last spinal imaging was in 2014 which did not reveal any evidence of progressionof underlying residual intradural enhancement and likely residual tumor. Possible etiologies include progression of patient's underlying tumor although has been stable for many years. I cannot exclude superimposed degenerative lumbar spine disease contributing to spinal canal stenosis or polyradiculopathy contributing to lower extremity weakness. I will obtain an MRI scan of the lumbar spine to assess for any structural lesions which may be contributing to the patient's symptoms. We will have physical therapy, Occupational Therapy, evaluate the patient for therapy and rehab needs. We will follow the patient clinically and make further recommendations based upon clinical course and the above evaluation. Code(s): R29.6 - Repeated falls Status: Acute (2) Altered mental status: Code(s): R41.82 - Altered mental status, unspecified Status: Acute Documented By: MEI Tristan 0844 Signed By: <Electronically signed by MEI Knight> 01/11/22 1426 <Electronically signed by MD Mani Dickens> 01/11/22 1701 [facility] Work Phone: [phone] Progress note Author W Be Mcintyre [facility] January 11, 2022 2:09pm Note Date/Time January 11, 2022 2 :09pm [facility] ENTER [address] [place] [address] Cardiology Progress Note Signed Patient: Irineo Wallis Jr MR# : [id number] : 1940 Acct:[id number] Age/Sex: 81 / M Adm Date: 2 Loc: Room: [address] [place] [address] Type: ADM IN Attending Dr: Raji Ennis MD Copies to: ~ Date of Service: 01/11/2022 Subjective Principal diagnosis: Atrial fibrillation, bradycardia, diastolic CHF Interval history: Overall heart rhythm is greatly improved heart rates now up to 78. Patient withimproved edema with diuresis. Holding carvedilol and digoxin have clearly helped his bradycardia. Case was also discussed with his daughter as well as with the patient. There is no indication for pacemaker at this time I would recommend continued diuresis over today and tomorrow with intentions fordischarge within the next 24+ hours should he continue to demonstrate excellent diuresis, reduction in edema, and no further prolonged pauses Exam Physical Exam Vital Signs: Temp Pulse Resp BP Pulse Ox O2 Del Method O2 Flow Rate 97.2 F L 78 18 105/64 95 Room Air 1 01/11/22 11:16 01/11/22 11:16 01/11/22 11:16 01/11/22 11:16 01/11/22 11:16 01/11/22 11:16 01/11/22 04:50 Const General: cooperative, comfortable and no acute distress Nutritional Appearance: average body habitus and edematous Orientation: alert, awake and oriented x3 HEENT Head: normal to inspection Resp Effort & Inspection: normal respiratory effort and able to speak in complete sentences Auscultation: clear to auscultation bilaterally Cardio Rhythm: abnormal rhythm Heart Sounds: S1 normal and S2 normal GI Palpation: soft Neuro General: patient alert, patient awake and patient oriented x3 Cognition: normal cognition Speech: speech normal Extrem General: edema Objective Labs CBC & Chem 7: 01/11/22 06:32 01/11/22 06:32 Labs: Laboratory Results - last 24 hr 01/11/22 01/11/22 06:32 06:32 Corrected WBC 8.5 Uncorrected WBC Count 8.5 RBC 3.78 L Hgb 12.7 L Hct 38.1 L MCV 100.6 MCH 33.4 MCHC 33.3 RDW 15.5 H Plt Count 177 MPV 8.8 Neut % (Auto) 73.8 Lymph % (Auto) 13.7 [place] % (Auto) 9.6 Eos % (Auto) 2.2 Baso % (Auto) 0.7 Neut # (Auto) 6.3 Lymph # (Auto) 1.2 [place] # (Auto) 0.8 Eos # (Auto) 0.2 Baso # (Auto) 0.1 Nucleated RBC % (auto) 0.0 PHA Creatinine Clear 42.37 Sodium 134 L Potassium 3.4 L Chloride 98 Carbon Dioxide 28.8 Anion Gap 10.6 BUN 24 H Creatinine 1.49 H Est GFR ( Amer) 55 Est GFR (Non-Af Amer) 45 Glucose 90 Calcium 8.7 A&P - Cardiology (1) HFrEF (heart failure with reduced ejection fraction): Assessment/Problem Details: Appears to be for the most part compensated. We will repeat echocardiogram to reassess ejection fraction especially in view of the lower extremity edema despite medical therapy. Code(s): I50.20 - Unspecified systolic (congestive) heart failure Status: Acute Plan: Continue to hold carvedilol and digoxin No need for pacemaker (2) Atrial fibrillation: Code(s): I48.91 - Unspecified atrial fibrillation Status: Chronic Plan: We will potentially reinitiate low-dose carvedilol in the future (3) Bradycardia: Assessment/Problem Details: Caused by atrial fibrillation with slow ventricular response on 2 agents contributing to bradycardia that is digoxin and Coreg. Code(s): R00.1 - Bradycardia, unspecified Status: Acute Plan: Hold off on digoxin and Coreg for today and tomorrow, reassess ejection fractionby echo tomorrow Documented By: Bhupinder Mcintyre DO 01/11/22 1405 Signed By: <Electronically signed by Bhupinder Mcintyre DO> 01/11/22 1409 [facility] Work Phone: 1(740) 243-587111-06-2022 Progress note Author Dharmesh Zavala [facility] January 10, 2022 8:54pm Note Date/Time January 10, 2022 8 :54pm [facility] EN[facility] [address] [place] [address] Hospitalist Progress Note Signed Patient: Irineo Wallis Jr MR# : [id number] : 1940 Acct:[id number] Age/Sex: 81 / M Adm Date: 2 Loc: Room: [address] [place] [address] Type: ADM IN Attending Dr: Dharmesh Zavala DO Copies to: ~ Date of Service: 01/10/2022 Subjective Subjective Narrative: When I entered the room the patient tells me that he is getting a pain in the thighs on the top of his legs. He does mention that the people in [place] told me that was due to the problem in my back. He says this has been getting a lotworse recently. At home it does not sound like he takes any specific medicationfor this. He does ask me for pain medication for this at this time. He cannot tell about improvement in edema in his legs, saying that he cannot feel them and cannot see them. His legs do look like they have had about a 20%improvement in edema. His weight has improved by about 2.5 kg. His serum creatinine actually improved a little bit by going down to 1.60 from 1.62. He denies any fevers or chills. No cough or expectoration any sputum. No headache. Today on telemetry the patient seem to have bradycardia with 3-second pauses. Cardiology with Dr. Drew saw the patient. Coreg and digoxin from home have been placed on hold. The external catheter that was used last night was not really functional. Is not in place anymore. He continues to have polyuria, and needs the help of two nursing staff to get him to stand up to void urine. Exam Physical Exam Vital Signs: Temp Pulse Resp BP Pulse Ox O2 Del Method O2 Flow Rate 97.7 F 76 16 113/73 97 Nasal Cannula 1 01/10/22 08:00 01/10/22 11:01 01/10/22 11:01 01/10/22 11:01 01/10/22 16:09 01/10/22 16:09 01/10/22 16:09 Narrative: Lungs: Lung sounds diminished, especially bases, and equal bilaterally. No wheezing. No crackles. Heart: Irregularly irregular heart rate. Rate is controlled. I do not hear anymurmurs, rubs, or gallops. Abdomen: Soft, normal bowel sounds, no rigidity, guarding, or acute peritoneal signs. Does have abdominal distention and some anasarca with pitting edema in his abdomen Extremities: About a 20% improvement of the edema. This is mostly in the area of the knees. Still with very tense edema below the knees all the way to the ankles bilaterally. Objective Lab Results CBC & Chem 7: 01/10/22 06:56 01/10/22 06:56 Microbiology Results Microbiology 01/09/22 12:42 Urine - Clean-Voided Midstream Urine Culture - Preliminary 15,000 colonies/ml mixed bacterial skin contaminants 1 Day Meds Allergies and Active Meds Allergies fentanyl Allergy (Verified 01/09/22 09:38) Dizziness indomethacin [From Indocin] Allergy (Verified 01/09/22 09:38) Dizziness Penicillins Allergy (Verified 01/09/22 09:38) Weakness zolpidem [From Ambien] Adverse Reaction (Verified 01/09/22 09:38) Confusion Active Meds: Active Medications Generic Name Dose Route Start Last Admin Trade Name Freq PRN Reason Stop Dose Admin Acetaminophen 650 mg 01/09/22 14:41 01/09/22 20:15 Acetaminophen 325 Mg Tablet PO 01/09/23 14:40 650 mg Q6HR PRN Administration Pain Scale 1 - 3 or fever Allopurinol 300 mg 01/10/22 09:00 01/10/22 08:58 Allopurinol 300 Mg Tablet PO 01/10/23 08:59 300 mg DAILY ANIBAL Administration Apixaban 5 mg 01/09/22 21:00 01/10/22 08:58 Apixaban 5 Mg Tablet PO 01/09/23 20:59 5 mg BID ANIBAL Administration Atorvastatin Calcium 40 mg 01/09/22 22:00 01/09/22 22:27 Atorvastatin 40 Mg Tablet PO 01/09/23 21:59 40 mg QHS ANIBAL Administration Bisacodyl 10 mg 01/09/22 14:41 Bisacodyl 10 Mg Supp.Rect DC 01/09/23 14:40 DAILY PRN Constipation Bisacodyl 10 mg 01/09/22 14:41 Bisacodyl 5 Mg Tablet.Dr PO 01/09/23 14:40 DAILY PRN Constipation Bumetanide 1 mg 01/09/22 15:30 01/10/22 14:42 Bumetanide 1 Mg/4 Ml Vial IV-PUSH 01/09/23 15:29 1 mg Q8H ANIBAL Administration Docusate Sodium 100 mg 01/09/22 21:00 01/10/22 08:58 Docusate 100 Mg Capsule PO 01/09/23 20:59 Not Given BID ANIBAL Fluticasone Propionate 1 spray 01/09/22 15:17 Fluticasone Propionate [place] [address] [place]/16 Gm Bottle NARES-BOTH 01/09/23 15:16 QHS PRN Nasal Congestion Hydromorphone HCl 0.5 mg 01/09/22 14:41 Hydromorphone 0.5 Mg/0.5 Ml Syringe IV-PUSH Q4H PRN Pain Scale 8 - 10 Magnesium Sulfate 2 gm in 50 mls @ 25 mls/hr 01/09/22 14:41 Magnesium Sulf 2gm-*Swfi* IV 01/09/23 14:40 DAILY PRN Magnesium Level < 1.5 Levothyroxine Sodium 150 mcg 01/10/22 06:30 01/10/22 06:44 Levothyroxine 150 Mcg Tablet PO 01/10/23 06:29 150 mcg DAILY@0630 ANIBAL Administration Magnesium Hydroxide 30 ml 01/09/22 14:41 Magnesium Hydroxide Susp 30 Ml Udc PO 01/09/23 14:40 BID PRN Constipation Magnesium Oxide 400 mg 01/10/22 09:00 01/10/22 08:58 Magnesium Oxide 400 Mg Tablet PO 01/10/23 08:59 400 mg DAILY ANIBAL Administration Nitroglycerin 0.4 mg 01/09/22 14:41 Nitroglycerin 0.4 Mg Tab.Subl SUBLINGUAL 01/09/23 14:40 Q5MIN.X3 PRN Chest Pain Non-Formulary Medication 3 mg 01/09/22 22:00 Eszopiclone PO 01/09/23 21:59 HS [facility] Nystatin 1 applic 01/09/22 22:00 01/10/22 14:42 Nystatin 100,000 Unit/Gram Powder 15 Gm Bottle TOPICAL 01/09/23 21:59 1 applic TID ANIBAL Administration Ondansetron HCl 4 mg 01/09/22 14:41 Ondansetron 4 Mg/2 Ml Vial IV-PUSH 01/09/23 14:40 Q8H PRN Nausea And Vomiting Oxycodone HCl 5 mg 01/09/22 14:41 01/09/22 16:38 Oxycodone Ir 5 Mg Tablet PO 5 mg Q4HR PRN Administration Pain Scale 4 - 7 Potassium Chloride 20 meq 01/09/22 14:41 Potassium Chloride Er 20 Meq Tab.Er.Prt PO 01/09/23 14:40 DAILY PRN Hypokalemia Potassium Chloride 40 meq 01/09/22 14:41 Potassium Chloride Er 20 Meq Tab.Er.Prt PO 01/09/23 14:40 DAILY PRN Hypokalemia Potassium Chloride 20 meq 01/09/22 21:00 01/09/22 20:16 Potassium Chloride Er 20 Meq Tab.Er.Prt PO 01/09/23 20:59 20 meq QPM ANIBAL Administration Sodium Chloride 0 ml 01/09/22 09:38 01/09/22 16:32 Sodium Chloride 0.9 % 10 Ml Syringe IV-PUSH 01/09/23 09:37 10 ml PRN PRN Administration Flush Sodium Chloride 0 ml 01/09/22 22:00 01/10/22 14:42 Sodium Chloride 0.9 % 10 Ml Syringe IV-PUSH 01/09/23 21:59 10 ml QSHIFT ANIBAL Administration A&P - Hospitalist Assessment/Plan (1) Acute on chronic congestive heart failure with left ventricular diastolic dysfunction: (2) Falls frequently: (3) Difficulty walking: (4) Bladder retention: (5) Constipation: (6) Acute respiratory failure with hypoxia: (7) Pleural effusion: (8) Atrial fibrillation: (9) Hypertension: (10) Anasarca: (11) Generalized weakness: (12) Impaired activities of daily living: (13) Sleep apnea: (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 Nursing staff can use a bladder scanner and monitor closely. May need to place an internal Chou. Continue bowel regimen Renal ultrasound did not show any hydroureter, and did not demonstrate an overlyfull bladder. Check echocardiogram. Check carotid Doppler ultrasound. MRI of the lumbar spine. Monitor telemetry for bradycardia and pauses with coreg and digoxin on hold at this time. Documented By: Dharmesh Zavala DO [id number] Signed By: <Electronically signed by Dharmesh Zavala DO> 01/10/222053 [facility] Work Phone: [phone] 241-363511-06-2022 Consult note Author Vikas Mane [facility] January 10, 2022 12:35pm Note Date/Time January 10, 2022 9 :20am [facility] [address] [place] [address] Neurology Consult Note Signed Patient: Irineo Wallis Jr MR# : [id number] : 1940 Acct:[id number] Age/Sex: 81 / M Adm Date: 2 Loc: Room: [address] [place] [address] Type: ADM IN Attending Dr: Dharmesh Zavala DO Copies to: DO Feliciano Pollock DO Kristopher L Lindbloom, DO~ HPI Consult Date: 01/10/22 Assistant Professor Of History: Vikas Mane DO [facility] Vaccinated for COVID-19?: Yes Medical History (Updated 01/10/22 @ 11:30 by Marv Drew MD) Atrial fibrillation BPH (benign prostatic hyperplasia) Chronic CHF DJD (degenerative joint disease) History of gastric ulcer 1959' Hypothyroidism 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 Osteoarthritis Renal calculi Sleep apnea does not use equipment Surgical History History of endoscopic sinus surgery History of excision of Zenker's diverticulum Transcervial resection 2009 History of lithotripsy Left ; with cyst, stents () History of repair of rotator cuff Bilateral- History of total left hip arthroplasty 2011 History of total left knee replacement History of total right knee replacement 2014 Hx of decompressive lumbar laminectomy 2010-with tumor resection Family History Mother Alzheimers disease Hx of CABG CAD (coronary artery disease) Myocardial infarct Brother Myocardial infarct Father Cirrhosis Sister Cancer Social History Smoking Status: Former smoker Tobacco Type: cigarettes Substance Use Type: Alcohol Substance Abuse Comment: 3 drinks a day >6 Meds Medications and Allergies Allergies fentanyl Allergy (Verified 01/09/22 09:38) Dizziness indomethacin [From Indocin] Allergy (Verified 01/09/22 09:38) Dizziness Penicillins Allergy (Verified 01/09/22 09:38) Weakness zolpidem [From Ambien] Adverse Reaction (Verified 01/09/22 09:38) Confusion Home Medications acetaminophen 500 mg tablet 1,000 mg PO BID #60 tabs 01/04/20 [Rx Confirmed 01/09/22] allopurinol 300 mg tablet 300 mg PO DAILY #30 tabs 01/04/20 [Rx Confirmed 01/09/22] apixaban 5 mg tablet (Eliquis) 5 mg PO BID #60 tabs 01/04/20 [Rx Confirmed 01/09/22] atorvastatin 40 mg tablet 40 mg PO QHS #30 tabs 01/04/20 [Rx Confirmed 01/09/22] carvedilol 6.25 mg tablet 6.25 mg PO BID.WITH.MEALS #60 tabs 01/04/20 [Rx Confirmed 01/09/22] digoxin 125 mcg (0.125 mg) tablet 125 mcg PO DAILY #30 tabs 01/04/20 [Rx Confirmed 01/09/22] docusate sodium 100 mg capsule (DOK) 100 mg PO BID #60 caps 01/04/20 [Rx Confirmed 01/09/22] levothyroxine 150 mcg tablet (Synthroid) 150 mcg PO DAILY@0630 #30 tabs 01/04/20[Rx Confirmed 01/09/22] magnesium oxide 400 mg (241.3 mg magnesium) tablet 400 mg PO DAILY #30 tabs 01/04/20 [Rx Confirmed 01/09/22] oxycodone-acetaminophen 5 mg-325 mg tablet 1 tab PO Q4H PRN Mild Pain 7 days #30tabs 01/04/20 [Rx Confirmed 01/09/22] sacubitril 24 mg-valsartan 26 mg tablet (Entresto) 1 tab PO BID #60 tabs 01/04/20 [Rx Confirmed 01/09/22] bumetanide 1 mg tablet 0.5 mg PO DAILY@0800 01/09/22 [History Confirmed 01/09/22] eszopiclone 3 mg tablet 3 mg PO HS 01/09/22 [History Confirmed 01/09/22] fluticasone propionate 50 mcg/actuation nasal spray,suspension 1 spray Nare- BothQHS PRN Nasal Congestion 01/09/22 [History Confirmed 01/09/22] potassium chloride 20 mEq tablet,extended release(part/cryst) (Klor-Con M) 20 meq PO QPM 01/09/22 [History Confirmed 01/09/22] sulfamethoxazole 800 mg-trimethoprim 160 mg tablet (Bactrim DS) 1 tab PO BID 01/09/22 [History Confirmed 01/09/22] trazodone 50 mg tablet 50 mg PO HS 01/09/22 [History Confirmed 01/09/22] Exam Physical Exam Vital Signs: Temp Pulse Resp BP Pulse Ox O2 Del Method O2 Flow Rate 97.7 F 77 18 127/77 97 Nasal Cannula 2 01/10/22 08:00 01/10/22 08:58 01/10/22 08:00 01/10/22 08:00 01/10/22 08:00 01/10/22 08:00 01/10/22 08:00 Results Laboratory Findings CBC and BMP: 01/10/22 06:56 01/10/22 06:56 Diagnostic Findings Imaging/Impressions: ITS Impressions Cervical Spine CT 01/09/22 09:47 IMPRESSION: No acute process Impression dictated by: Esa Cardoso M.D.01/09/2022 1:02 PM Dictation Location: [place] [address] 01/09/22 09:47 IMPRESSION: No acute intracranial findings. Impression dictated by: Esa Cardoso M.D.01/09/2022 1:00 PM Dictation Location: [facility] 01/09/22 09:47 IMPRESSION: NO ACUTE LUMBAR SPINE FRACTURE OR VERTEBRAL DISPLACEMENT. Impression dictated by: Eas Cardoso M.D.01/09/2022 1:11 PM Dictation Location: [facility] 01/09/22 09:47 IMPRESSION: No fracture. Thoracic spondylosis. Moderate right and small left pleural effusions. Impression dictated by: Esa Cardoso M.D.01/09/2022 1:06 PM Dictation Location: [facility] Chest X-Ray 01/09/22 09:48 IMPRESSION: Developing groundglass parenchymal densities greater on the RIGHT. Consider pulmonary edema. Impression dictated by: Esa Cardoso M.D.01/09/2022 10:11 AM Dictation Location: [facility] Renal Ultrasound 01/10/22 05:00 IMPRESSION: No hydronephrosis. Impression dictated by: Esa Cardoso M.D.01/10/2022 9:07 AM Dictation Location: [facility] Assessment/Plan (1) Falls frequently: Assessment/Problem Details: HPI: 81-year-old man. Presented to the emergency department on January 09, 2022 via EMS for evaluation of fall and injury. He got up to go to the bathroom in the middle the night with his walker and lost his balance and fell and was unable toget back up, being stuck on the floor for several hours. It sounds like there may have been some preceding dizziness that contributed. He had complained of low back pain. History of atrial fibrillation and is on Eliquis. History of congestive heart failure. He has had multiple falls in recent history. Oxygen saturation emergency department was only 87% and is now requiring supplemental oxygen which is new for him. CT scan of the head and spine were unrevealing. CK 231. BNP 1810. Chest x-ray with bilateral pleural effusions. New macrocytosis. Most recent EF was acceptable. Recent constipation. Recently taken off some medications that were meant to help with prostate issues. Sees urology. Reported history of an unspecified tumor of the lumbar spine. Daughter had handwritten note that said ependymoma. Medical history contains some data about a neoplasm of the lumbar spine with resection of myxopapillary ependymoma in 1988 (?) and also with radiation therapy with that. He said Dr. Matias did the operation who I do not think was in practice that long ago but I could be wrong. They were told that whomever did the resection could not take all of it. He has subsequent spinal imaging that continues to show some evidence of tumor. He has a lot of low back pain. Some of those back pain seemto radiate into his upper thighs, which he describes as a dull ache. They also mention that urology had done a urine culture and they just got an voicemail that says that it was positive and they were going to be sending in Macrobid to his pharmacy. EXAMINATION: Well-kempt. No distress. No deformities or trauma. Normal spinal curvature. Limbs seem well-perfused. No significant edema. Normal work of breathing. Visualized skin is generally intact and without lesions. Affect normal. Patient is alert and generally oriented. Attention normal. Speech is fluent and nondysarthric. Pupils are equal and reactive Ocular motility is full. No nystagmus. Facial sensation is normal. Hearing is normal. Facial strength is normal. Tongue is midline. Muscle bulk, tone, and strength are normal. No tremors. Reflexes normal throughout. No pathologic reflexes. Light touch is normal. Vibratory sensation is normal. Normal rapidly alternating movements. No limb dysmetria with [id number] testing. DATA REVIEW: MRI lumbar spine from July 08, 2004 shows a stable contrast-enhancing mass within the intradural space at the L2-3 level, and postsurgical changes with bilateral laminectomies at L4-5 and L5-S1 MRI lumbar spine from January 06, 2015 shows laminectomy defects at L2-L5 and redemonstration of intradural foci of enhancement in the lower lumbar spine and severe central spinal canal stenosis at L3-4 ASSESSMENT: Chronic low back pain and lower extremity weakness. Progressively worsening. 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 Also with severe lumbosacral degenerative disease and multiple levels of significant stenosis and neuroforaminal stenosis,status post decompressive lumbar surgery. Symptoms into the legs and thighs mayrepresent chronic lumbar radiculopathy. He has very little sensation in the feet, and no vibratory sensation, which likely affects his balance. Also consider polyneuropathy. I suspect his CHF, hypoxia, and urinary tract infection could only make all of his symptoms seem worse. Do not suspect cerebrovascular cause for any of his presenting symptoms. PLAN: 1. MRI lumbar spine with and without contrast 2. Neuropathy lab work-up: B12 was 458, SPEP and immunofixation pending, A1c pending 3. Strong consideration for neurosurgical consult depending on MRI results Code(s): R29.6 - Repeated falls Status: Acute (2) Altered mental status: Code(s): R41.82 - Altered mental status, unspecified Status: Acute Documented By: Viksa Mane DO 01/10/22911 Signed By: <Electronically signed by Vikas Mane DO> 01/10/22 1235 [facility] Work Phone: [phone]) 725-306111-06-2022 Consult note Author Marv Drew [facility] January 10, 2022 11:32am Note Date/Time January 10, 2022 1 1:32am [facility] [address] [place] [address] Cardiology Consult Note Signed Patient: Irineo Wallis Jr MR# : [id number] : 1940 Acct:[id number] Age/Sex: 81 / M Adm Date: 2 Loc: Room: [address] [place] [address] Type: ADM IN Attending Dr: Dharmesh Zavala DO Copies to: DO Marv Catalan MD, FACC Dharmesh Zavala DO~ Cardiology HPI History of Present Illness Consult Date: 01/10/22 Reason for Consult: Bradycardia HPI: Mr. Wallis is a 81 year old male who is being seen at request of the hospitalist for evaluation of bradycardia. Patient is known to have chronic atrial fibrillation managed with Eliquis and no antiarrhythmic therapy. He has been also on Coreg and digoxin due to the presence of the ventricular systolic dysfunction and has followed with Dr. Mcintyre. Lately the patient has been having recurrent symptoms of dizziness with ambulation and near syncope but no true syncope. He denies any chest pain orthopnea PND but has chronic lower extremity edema. His last echocardiogram 2019 showed EF 50-55% which is an improvement from 2017 when it was 35%. His cardiac catheterization 2016 revealed minimal coronary artery disease. He has no history of strokes or TIAs. Denies any bleeding complications except for bruising on the skin. Because of the patient's recurrent dizziness and falling down he came into the hospital forevaluation. His monitor revealed atrial fibrillation and at times he has pausesup to 3 seconds. The concern was regarding the bradycardia arrhythmias. Review of Systems Review of Systems Review of systems: As noted above in HPI there has been no indication for worsening heart failure but he does have lower extremity edema. There is no dysuria or hematuria no melena. Denies any fever or chills and denies any chest pain. He is generally weak but has good appetite. He has adequate social support at home. 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 Osteoarthritis Renal calculi Sleep apnea does not use equipment Surgical History History of endoscopic sinus surgery 1989' History of excision of Zenker's diverticulum Transcervial resection 2009 History of lithotripsy Left ; with cyst, stents () History of repair of rotator cuff Bilateral- History of total left hip arthroplasty 2011 History of total left knee replacement History of total right knee replacement 2014 Hx of decompressive lumbar laminectomy 2010-with tumor resection Family History Mother Alzheimers disease Hx of CABG CAD (coronary artery disease) Myocardial infarct Brother Myocardial infarct Father Cirrhosis Sister Cancer Social History Smoking Status: Former smoker Tobacco Type: cigarettes Substance Use Type: Alcohol Substance Abuse Comment: 3 drinks a day >6 Meds Medications and Allergies Allergies fentanyl Allergy (Verified 01/09/22 09:38) Dizziness indomethacin [From Indocin] Allergy (Verified 01/09/22 09:38) Dizziness Penicillins Allergy (Verified 01/09/22 09:38) Weakness zolpidem [From Angeli] Adverse Reaction (Verified 01/09/22 09:38) Confusion Home Medications acetaminophen 500 mg tablet 1,000 mg PO BID #60 tabs 01/04/20 [Rx Confirmed 01/09/22] allopurinol 300 mg tablet 300 mg PO DAILY #30 tabs 01/04/20 [Rx Confirmed 01/09/22] apixaban 5 mg tablet (Eliquis) 5 mg PO BID #60 tabs 01/04/20 [Rx Confirmed 01/09/22] atorvastatin 40 mg tablet 40 mg PO QHS #30 tabs 01/04/20 [Rx Confirmed 01/09/22] carvedilol 6.25 mg tablet 6.25 mg PO BID.WITH.MEALS #60 tabs 01/04/20 [Rx Confirmed 01/09/22] digoxin 125 mcg (0.125 mg) tablet 125 mcg PO DAILY #30 tabs 01/04/20 [Rx Confirmed 01/09/22] docusate sodium 100 mg capsule (DOK) 100 mg PO BID #60 caps 01/04/20 [Rx Confirmed 01/09/22] levothyroxine 150 mcg tablet (Synthroid) 150 mcg PO DAILY@0630 #30 tabs 01/04/20[Rx Confirmed 01/09/22] magnesium oxide 400 mg (241.3 mg magnesium) tablet 400 mg PO DAILY #30 tabs 01/04/20 [Rx Confirmed 01/09/22] oxycodone-acetaminophen 5 mg-325 mg tablet 1 tab PO Q4H PRN Mild Pain 7 days #30tabs 01/04/20 [Rx Confirmed 01/09/22] sacubitril 24 mg-valsartan 26 mg tablet (Entresto) 1 tab PO BID #60 tabs 01/04/20 [Rx Confirmed 01/09/22] bumetanide 1 mg tablet 0.5 mg PO DAILY@0800 01/09/22 [History Confirmed 01/09/22] eszopiclone 3 mg tablet 3 mg PO HS 01/09/22 [History Confirmed 01/09/22] fluticasone propionate 50 mcg/actuation nasal spray,suspension 1 spray Nare- BothQHS PRN Nasal Congestion 01/09/22 [History Confirmed 01/09/22] potassium chloride 20 mEq tablet,extended release(part/cryst) (Klor-Con M) 20 meq PO QPM 01/09/22 [History Confirmed 01/09/22] sulfamethoxazole 800 mg-trimethoprim 160 mg tablet (Bactrim DS) 1 tab PO BID 01/09/22 [History Confirmed 01/09/22] trazodone 50 mg tablet 50 mg PO HS 01/09/22 [History Confirmed 01/09/22] Exam Physical Exam Vital Signs: Temp Pulse Resp BP Pulse Ox O2 Del Method O2 Flow Rate 97.7 F 76 16 113/73 97 Nasal Cannula 1 01/10/22 08:00 01/10/22 11:01 01/10/22 11:01 01/10/22 11:01 01/10/22 11:01 01/10/22 11:01 01/10/22 11:01 Const General: cooperative, comfortable and no acute distress Nutritional Appearance: obese Orientation: alert, awake and oriented x3 HEENT Head: normal to inspection, normocephalic and atraumatic Ears: hearing grossly normal bilaterally Nose: external nose normal Face and sinus: normal facial exam Eyes General: appearance normal, both eyes and all related structures Conjunctivae: conjunctivae normal Pupils: PERRL Neck Neck: normal visual inspection, full ROM, no lymphadenopathy, trachea midline and supple Neck mass: No Thyroid: thyroid normal Carotids: normal carotid upstroke Resp Effort & Inspection: normal respiratory effort Auscultation: clear to auscultation bilaterally Cardio Jugular venous pressure: no JVD Palpation: normal PMI Rate: regular rate Rhythm: abnormal rhythm irregularly irregular Heart Sounds: S1 normal and S2 normal GI Inspection: normal to inspection Palpation: soft and no hepatosplenomegaly Auscultation: normal bowel sounds Extrem General: pedal edema (2+ bilateral lower extremity edema) Results Labs CBC & CMP: 01/10/22 06:56 01/10/22 06:56 Lab results: Cardiac Enzymes 01/10/22 Range/Units 06:56 B-Natriuretic Peptide 679.0 H (5-100) pg/mL CBC 01/10/22 Range/Units 06:56 RBC 3.71 L (3.90-5.60) x10E6/uL Hgb 12.5 L (13.0-17.0) g/dL Hct 37.7 L (38.8-50.0) % Plt Count 167 (150-450) x10E3/uL Neut # (Auto) 7.3 (1.8-7.7) x10E3/uL Lymph # (Auto) 1.0 (1.00-4.8) x10E3/uL [place] # (Auto) 1.0 H (0.0-0.8) x10E3/uL Eos # (Auto) 0.0 (0.0-0.45) x10E3/uL Baso # (Auto) 0.1 (0.0-0.2) x10E3/uL Comprehensive Metabolic Panel 01/10/22 Range/Units 06:56 Sodium 134 L (136-146) mmol/L Potassium 3.8 (3.5-5.1) mmol/L Chloride 99 (95-114) mmol/L Carbon Dioxide 26.7 (22.0-30.0) mmol/L BUN 23 (9-23) mg/dL Creatinine 1.60 H (0.64-1.27) mg/dL Glucose 97 (70-100) mg/dL Calcium 8.6 (8.2-10.2) mg/dL Intake and Output 01/10/22 01/10/22 01/10/22 00:59 07:59 15:59 Intake Total Output Total Balance Intake: Oral Output: Urine Urine Amount (Catheter) Condom Other: # Incontinent Voids Weight Date of Last Bowel Movement 01/10/22 Patient Weight 01/10/22 22:59 Weight 93.7 kg Lab 01/09/22 10:36 PT 28.4 H INR 2.5 APTT 39.1 H EKG Interpretations EKG Attestation EKG: I reviewed this ECG and interpreted as documented below: (Atrial fibrillation with PVCs) A&P - Cardiology (1) HFrEF (heart failure with reduced ejection fraction): Assessment/Problem Details: Appears to be for the most part compensated. We will repeat echocardiogram to reassess ejection fraction especially in view of the lower extremity edema despite medical therapy. Plan: Continue present medical therapy but due to bradycardia hold off on the Coreg. We will repeat the echocardiogram to reassess ejection fraction. Eventually thepatient may need to have a pacemaker Code(s): I50.20 - Unspecified systolic (congestive) heart failure (2) Atrial fibrillation: Assessment/Problem Details: This is chronic and managed with rate control anticoagulation. He is currently having significant pauses on telemetry. He is currently on 2 agents to contribute to this including digoxin and Coreg. Plan: Continue Eliquis, hold off on digoxin and Coreg. We will await echocardiogram for further plans of therapy. If ejection fraction remains low he does need beta- saroj therapy therefore he will need a pacemaker. Code(s): I48.91 - Unspecified atrial fibrillation (3) Bradycardia: Assessment/Problem Details: Caused by atrial fibrillation with slow ventricular response on 2 agents contributing to bradycardia that is digoxin and Coreg. Plan: Hold off on digoxin and Coreg for today and tomorrow, reassess ejection fractionby echo tomorrow Code(s): R00.1 - Bradycardia, unspecified Documented By: Marv Drew MD, [facility] 2 1125 Signed By: <Electronically signed by [facility] Marv Drew> 01/10/22 1133 [facility] Work Phone: [phone]) 641-657211-05-2022 History and physical note Author Dharmesh Zavala [facility] January 09, 2022 3:30pm Note Date/Time January 09, 2022 3 :30pm [facility] EN[facility] [address] [place] [address] Hospitalist H&P Signed Patient: Irineo Wallis Jr MR# : [id number] : 1940 Acct:[id number] Age/Sex: 81 / M Adm Date: 2 Loc: Room: [address] [place] [address] Type: ADM IN Attending Dr: Dharmesh Zavala DO Copies to: DO Dharmesh Catalan, ~ HPI DATE OF EXAMINATION: 01/09/22 CHIEF COMPLAINT: Fell, dyspnea, leg edema HISTORY OF PRESENT ILLNESS: This is an 81-year-old man who present emergency room today after a fall at home. He has had a number of falls at home lately but this one was the worst. In the ER he needed the supplemental oxygen being suctioned saturations were only 87%. He has never worn oxygen before. CT scanning of the head, cervical spine, thoracic spine, and lumbar spine were unrevealing for acute bony fractures. He had been laying on the floor for some time at home before his family members convinced him to go to the emergency room. His CPK is only mildly elevated at 231. He does have chronic atrial fibrillation and EKG shows atrial fibrillation with a controlled rate. His troponin was only mildly elevated at 101. B-type natriuretic peptide was very elevated at 1810, when itsbeen about 200-300 in the past. Chest x-ray shows evidence of bilateral pleuraleffusions, right worse than left. He had an extreme amount of pain and required a few doses of IV Dilaudid to try and get his pain under control in the emergency room. He has a history of a cardiac catheterization on May 2016. Minimal coronary artery disease but is left-ventricular ejection fraction was reduced at 35 to 40%. The last echocardiogram we have here from 2019 showed his EF improved to 50 to 55%. He does follow with Dr. Mcintyre. He is on Eliquis for the atrial fibrillation. I do notice that he has a new development of macrocytosis. He is accompanied in his room with his daughter. The patient describes that he was using his walker to navigate through the home where he lives alone independently and he was by the door jam. He describes a sudden onset of dizziness that then caused him to fall. He cannot really describe to me how he fell to the floor. He had a similar fall, accompanied by dizziness, just a couple days ago, and has fallen a handful of times over the last couple weeks. These falls led to some skin tears on his arms which he saw his primary care physician and they provided a cream and prescribed him Bactrim. He was given 1 mg of Bumex IV in the emergency room. When I walked in the room he was using a urinal to collect urine. He only voided about 100 mL. His daughter points out that he had seen a urologist in [place] recently. Patient used to be on a number of prostate medications but apparently they were stopped because they are not doing what they are supposed to be doing. The patient andhis daughter have a discussion about what urology was doing for the situation without finding a specific answer. Patient also describes that he has been veryconstipated lately and takes an unspecified [id number] generic stool softener. His daughter does point out that he has had a lot of problems walking, especially recenlty. She says it is like his knees and his hips and his anklesdo not bend. He does have a history of an unspecified tumor which seems to be located in the lumbar spine. The daughter says they have said that there is nothing more that they can do for that and she has handwritten note from home which seems to say ependymoma but has some other letters on it that I cannot tell what it is trying to spell. It seems like he got a number radiofrequency ablations by pain management doctor in [place]. Review of Systems Review of Systems Review of systems: 10 systems are reviewed and are negative except as mentioned elsewhere in the documentation. 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 Osteoarthritis Renal calculi Sleep apnea does not use equipment Surgical History History of endoscopic sinus surgery 1989' History of excision of Zenker's diverticulum Transcervial resection 2009 History of lithotripsy Left ; with cyst, stents () History of repair of rotator cuff Bilateral-1979' History of total left hip arthroplasty 2011 History of total left knee replacement History of total right knee replacement 2014 Hx of decompressive lumbar laminectomy 2010-with tumor resection Family History Mother Alzheimers disease Hx of CABG CAD (coronary artery disease) Myocardial infarct Brother Myocardial infarct Father Cirrhosis Sister Cancer Social History Smoking Status: Former smoker Tobacco Type: cigarettes Substance Use Type: Alcohol Substance Abuse Comment: 3 drinks a day >6 Meds Medications and Allergies Allergies fentanyl Allergy (Verified 01/09/22 09:38) Dizziness indomethacin [From Indocin] Allergy (Verified 01/09/22 09:38) Dizziness Penicillins Allergy (Verified 01/09/22 09:38) Weakness zolpidem [From Ambien] Adverse Reaction (Verified 01/09/22 09:38) Confusion Home Medications acetaminophen 500 mg tablet 1,000 mg PO BID #60 tabs 01/04/20 [Rx Confirmed 01/09/22] allopurinol 300 mg tablet 300 mg PO DAILY #30 tabs 01/04/20 [Rx Confirmed 01/09/22] apixaban 5 mg tablet (Eliquis) 5 mg PO BID #60 tabs 01/04/20 [Rx Confirmed 01/09/22] atorvastatin 40 mg tablet 40 mg PO QHS #30 tabs 01/04/20 [Rx Confirmed 01/09/22] carvedilol 6.25 mg tablet 6.25 mg PO BID.WITH.MEALS #60 tabs 01/04/20 [Rx Confirmed 01/09/22] digoxin 125 mcg (0.125 mg) tablet 125 mcg PO DAILY #30 tabs 01/04/20 [Rx Confirmed 01/09/22] docusate sodium 100 mg capsule (DOK) 100 mg PO BID #60 caps 01/04/20 [Rx Confirmed 01/09/22] levothyroxine 150 mcg tablet (Synthroid) 150 mcg PO DAILY@0630 #30 tabs 01/04/20[Rx Confirmed 01/09/22] magnesium oxide 400 mg (241.3 mg magnesium) tablet 400 mg PO DAILY #30 tabs 01/04/20 [Rx Confirmed 01/09/22] oxycodone-acetaminophen 5 mg-325 mg tablet 1 tab PO Q4H PRN Mild Pain 7 days #30tabs 01/04/20 [Rx Confirmed 01/09/22] sacubitril 24 mg-valsartan 26 mg tablet (Entresto) 1 tab PO BID #60 tabs 01/04/20 [Rx Confirmed 01/09/22] bumetanide 1 mg tablet 0.5 mg PO DAILY@0800 01/09/22 [History Confirmed 01/09/22] eszopiclone 3 mg tablet 3 mg PO HS 01/09/22 [History Confirmed 01/09/22] fluticasone propionate 50 mcg/actuation nasal spray,suspension 1 spray Nare- BothQHS PRN Nasal Congestion 01/09/22 [History Confirmed 01/09/22] potassium chloride 20 mEq tablet,extended release(part/cryst) (Klor-Con M) 20 meq PO QPM 01/09/22 [History Confirmed 01/09/22] sulfamethoxazole 800 mg-trimethoprim 160 mg tablet (Bactrim DS) 1 tab PO BID 01/09/22 [History Confirmed 01/09/22] trazodone 50 mg tablet 50 mg PO HS 01/09/22 [History Confirmed 01/09/22] Exam Physical Exam Vital Signs: Temp Pulse Resp BP Pulse Ox O2 Del Method O2 Flow Rate 97.7 F 68 16 152/75 H 96 Nasal Cannula 3 01/09/22 14:39 01/09/22 14:39 01/09/22 14:39 01/09/22 14:39 01/09/22 14:39 01/09/22 14:56 01/09/22 14:56 Narrative: GEN: Awake, alert, oriented x 3. Head: Normal Cephalic, Atraumatic. Eyes: Conjunctiva and sclera clear bilaterally. Nose: External nose and nares normal bilaterally. Mouth: Lips and tongue normal. Neck: No JVD. No thyromegaly. No lymphadenopathy. Lungs: Lung sounds diminished, especially bases bilaterally. No wheezing. No crackles. Heart: Irregularly irregular heart rate. Rate is controlled. I do not hear anymurmurs, rubs, or gallops. Abdomen: Soft, normal bowel sounds, no rigidity, guarding, or acute peritoneal signs. Does have abdominal distention and some anasarca with pitting edema in his abdomen Extremities: Massive edema from his ankles up to his thighs bilaterally. Musculoskeletal: Palpating down his cervical spine, thoracic spine, lumbar spineand sacrum does not reveal any point focal tenderness. Amazingly he does not really have any bruises on his back. There is a small scar in the lumbar regionfrom perhaps this chronic tumor issue that he had surgeries on in the past. Thelimit to the bruising that I see is a mild bruise on his right shoulder which actually looks 2 or 3 days old and some skin tears on his forearms and small bruise over the trochanteric area of his left hip that also looks a couple days old. Skin: No systemic rashes or lesions. Psychiatric: Calm. Flat affect. Somewhat delayed in providing much medical history. Results Lab Results Labs: Laboratory Last Values Corrected WBC 6.0 X10E3/uL (4.1-10.5) 01/09/22 10:36 Uncorrected WBC Count 6.0 x10E3/uL (4.5-11.0) 01/09/22 10:36 RBC 3.59 x10E6/uL (3.90-5.60) L 01/09/22 10:36 Hgb 12.1 g/dL (13.0-17.0) L 01/09/22 10:36 Hct 36.5 % (38.8-50.0) L 01/09/22 10:36 MCV 101.5 fl (83.5-101) H 01/09/22 10:36 MCH 33.7 pg (27.5-35.2) 01/09/22 10:36 MCHC 33.2 g/dL (32.5-35.6) 01/09/22 10:36 RDW 15.9 % (12.0-14.8) H 01/09/22 10:36 Plt Count 162 x10E3/uL (150-450) 01/09/22 10:36 MPV 8.3 fl (6.6-10.1) 01/09/22 10:36 Neut % (Auto) 71.2 % (.) 01/09/22 10:36 Lymph % (Auto) 13.5 % (.) 01/09/22 10:36 [place] % (Auto) 14.2 % (.) 01/09/22 10:36 Eos % (Auto) 0.1 % (.) 01/09/22 10:36 Baso % (Auto) 1.0 % (.) 01/09/22 10:36 Neut # (Auto) 4.3 x10E3/uL (1.8-7.7) 01/09/22 10:36 Lymph # (Auto) 0.8 x10E3/uL (1.00-4.8) L 01/09/22 10:36 [place] # (Auto) 0.9 x10E3/uL (0.0-0.8) H 01/09/22 10:36 Eos # (Auto) 0.0 x10E3/uL (0.0-0.45) 01/09/22 10:36 Baso # (Auto) 0.1 x10E3/uL (0.0-0.2) 01/09/22 10:36 Nucleated RBC % (auto) 0.1 % (0-0.5) 01/09/22 10:36 PT 28.4 Seconds (9.0-12.9) H 01/09/22 10:36 INR 2.5 01/09/22 10:36 APTT 39.1 Seconds (25.1-36.5) H 01/09/22 10:36 PHA Creatinine Clear 39.44 01/09/22 10:36 Sodium 136 mmol/L (136-146) 01/09/22 10:36 Potassium 4.1 mmol/L (3.5-5.1) 01/09/22 10:36 Chloride 100 mmol/L (95-114) 01/09/22 10:36 Carbon Dioxide 25.2 mmol/L (22.0-30.0) 01/09/22 10:36 Anion Gap 14.9 mEq/L (6.0-15.0) 01/09/22 10:36 BUN 21 mg/dL (9-23) 01/09/22 10:36 Creatinine 1.62 mg/dL (0.64-1.27) H 01/09/22 10:36 Est GFR ( Amer) 50 mL/Min 01/09/22 10:36 Est GFR (Non-Af Amer) 41 mL/Min 01/09/22 10:36 Glucose 99 mg/dL (70-100) 01/09/22 10:36 Calcium 9.2 mg/dL (8.2-10.2) 01/09/22 10:36 Total Creatine Kinase 231 U/L (22-269) 01/09/22 10:36 CK-MB (CK-2) 5.4 ng/mL (0.6-6.3) 01/09/22 10:36 CK-MB (CK-2) Rel Index 2.3 % (0.00-2.50) 01/09/22 10:36 Troponin I High Sens 101 pg/mL (0-20) H* 01/09/22 10:36 B-Natriuretic Peptide 1810.0 pg/mL (5-100) H 01/09/22 10:36 Urine Color Yellow (Yellow) 01/09/22 12:42 Urine Appearance Cloudy (Clear) A 01/09/22 12:42 Urine pH 5.5 (5.0-9.0) 01/09/22 12:42 Ur Specific [place] 1.018 (1.001-1.030) 01/09/22 12:42 Urine Protein Trace mg/dL (Negative) H 01/09/22 12:42 Urine Glucose (UA) Normal mg/dL (Normal) 01/09/22 12:42 Urine Ketones Trace (Negative) H 01/09/22 12:42 Urine Occult Blood Negative (Negative) 01/09/22 12:42 Urine Nitrite Negative (Negative) 01/09/22 12:42 Urine Bilirubin Negative (Negative) 01/09/22 12:42 Urine Urobilinogen Normal mg/dL (Normal) 01/09/22 12:42 Ur Leukocyte Esterase 2+ (Negative) H 01/09/22 12:42 Urine RBC 0-1 /HPF (0-4) 01/09/22 12:42 Urine WBC 5-9 /HPF (0-4) H 01/09/22 12:42 Ur Squamous Epith Cells 0-1 /HPF (0-2) 01/09/22 12:42 Urine Bacteria None seen (None Seen) 01/09/22 12:42 Hyaline Casts 0-8 /LPF (0-8) 01/09/22 12:42 Urine Yeast None seen /HPF (None Seen) 01/09/22 12:42 COVID-19 PCR Interp N/A 01/09/22 12:20 COVID-19 Clin Com Negative (Negative) 01/09/22 12:20 SARS Antigen (LFIA) Negative (Negative) 01/09/22 10:12 Microbiology Results Micro: Microbiology - Results from entire visit 01/09/22 10:12 Nasal SARS Antigen (LFIA) - Final A&P - Hospitalist Assessment/Plan (1) Acute on chronic congestive heart failure with left ventricular diastolic dysfunction: (2) Falls frequently: (3) Difficulty walking: (4) Bladder retention: (5) Constipation: (6) Acute respiratory failure with hypoxia: (7) Pleural effusion: (8) Atrial fibrillation: (9) Hypertension: (10) Anasarca: (11) Generalized weakness: (12) Impaired activities of daily living: (13) Sleep apnea: (14) Myxopapillary ependymoma: Plan Plan: Start IV Bumex 1 mg IV every 8 hours. Patient will hopefully be able to tolerate an external male genitalia type urinecollection device. Nursing staff can use a bladder scanner and monitor closely. May need to place an internal [place]. Treat constipation with milk of magnesia and lactulose now. Check renal ultrasound in the morning. Check echocardiogram. Check carotid Doppler ultrasound. For newly developed macrocytosis check B vitamins in the morning. Consult to neurology. Consult to physical therapy and Occupational Therapy. MRI of the lumbar spine. Documented By: Dharmesh Zavala DO [id number] Signed By: <Electronically signed by Dharmesh Zavala, > 01/09/22 1530 [facility] Work Phone: [phone]) [phone] Evaluation note* Encounter Date Diagnosis Assessment Notes Treatment Notes Treatment Clinical Notes Jan, Fall, initial encounter (ICD-10 - W19.XXXA) Patient admits to tripping and falling over his coffee table 01/05. He landed on his left arm sustaining a superficial laceration from the mid bicep down to just below his elbow. He denies hitting his head. Patient does also have some rug burn on his bilateral knees. Jan, Laceration of left upper arm, initial encounter (ICD-10 - S41.112A) Upon examination, patient does have a superficial laceration extending from the miid left bicep to just below his elbow. His daughter has been caring for this at home using neosporin and keeping it covered. I did redress the area today. Verbal instructions given for home care advising him to be srue to remove the dressings to keep the area open to air when he can. Above oral and topical medications provided to prevent any infection. Patient voiced understanding. We will see him back in a week to re-evaluate the area. [employer] Other 10-21-2022 Evaluation note* Encounter Date Diagnosis Assessment Notes Treatment Notes Treatment Clinical Notes Dec, Lower extremity edema (ICD-10 - R60.0) [employer] Other 10-13-2022 NoteCONSULTATION CONSULTATION DATE: 12/17/2021 HISTORY OF PRESENT ILLNESS: This is an 81-year-old gentleman, who is returning to the clinic status post lumbar epidural steroid injection completed on 12/01/2021. The patient states it afforded him approximately 80% improvement for one week. Today, his pain is rated 4-5/10. He does ambulate with a cane and states he has difficulty putting on socks to his right foot as well as getting out of bed. He is on Eliquis and has been on Celebrex in the past. The patient reports that his Celebrex resulted in cardiac problems that had him hospitalized. For pain, he currently takes Percocet 5/325 daily p.r.n., Extra Strength Tylenol 1000 mg b.i.d., trazodone, Lunesta and Robaxin. Activities that aggravate his pain are twisting, pushing, pulling, standing, walking, lifting and fishing. He currently does not use any heat or ice. He temporarily used heat shortly after his epidural, which he felt was beneficial. He denies any recent activities, trips or falls. Patient's REVIEW OF SYSTEMS / PAST MEDICAL HISTORY / ALLERGIES and IMAGES have been reviewed and they are noted on the chart. PHYSICAL EXAM: VITAL SIGNS: Blood pressure 139/75. Heart rate is 55. Temperature is 97.5. He is 5'6 and weighs 214 pounds. GENERAL IMPRESSION: Pleasant, appropriate, flat affect. FOCUSED EXAM - BACK: Range of motion is guarded in lateral rotation and flexion/extension. Minor reproduction of spinal axial pain to compression along the lower lumbar facets of L3, L4, L5. Tova's point mildly tender bilaterally. Negative FABERs and compression test. MUSCULOSKELETAL: Diffuse muscle atrophy noted to upper and lower extremities. Increased muscle weakness to his left leg along the anterior tibialis. Patient does ambulate with a cane and a slow, slightly shuffled gait. NEUROLOGICAL: Patchy hypoesthesia noted along the left lower extremity along L4-L5 dermatome to the level of the foot. Blunted patellar and Achilles reflexes. DIAGNOSIS: Lumbar radiculitis, lumbar degenerative disc disease, lumbar spondylosis and lumbar spinal canal stenosis. PLAN: Patient is complaining of constipation with the Percocet. When he is due for his next refill, we will change it to [place] 5/325 daily p.r.n. and the patient is encouraged to increase oral fluids and to continue with his stool softener on a daily basis. Heat education was discussed with the patient, as far as frequency and consistency. We will see him in three months' time, unless otherwise indicated, and all questions answered today.[facility] [id number] NoteCONSULTATION CONSULTATION DATE: 11/12/2021 HISTORY OF PRESENT ILLNESS: This is an 81-year-old gentleman here at the clinic for a three month follow up for his chronic mid back pain. This gentleman has a history of degenerative disc as well as spinal canal stenosis. He reports his pain is 6/10 at rest today and will elevate to 9/10 with activity or prolonged sitting. He has had lumbar ablations in the past with moderate relief. In July of this year, he had a lumbar epidural steroid injection which gave him the greatest relief but was not long standing. He is on Eliquis and, therefore, unable to take oral NSAIDs. Medications include Extra Strength Tylenol, Percocet 5/325 daily, trazodone, Robaxin, Requip and Lunesta. During his last appointment on 08/13/2021, he was sent to physical therapy and we did a series of testosterone injections for his muscle atrophy. Patient states that the physical therapy was not beneficial and he did not notice a difference with the testosterone. He does have bilateral lower extremity hypoesthesia and he does ambulate with a cane. He states he is having no more good days. He will have to routinely stop while he is walking to rest his back. Activities that aggravate his pain are walking, housework, lifting, pushing, pulling and getting out of bed. He does not use heat or ice. Patient's REVIEW OF SYSTEMS / PAST MEDICAL HISTORY / ALLERGIES and IMAGES have been reviewed and they are noted on the chart. PHYSICAL EXAM: Blood pressure 116/63, heart rate is 63. Temperature is 97.7. He is 5'6 and weighs 97.1 kg. GENERAL APPEARANCE: Flat affect, pleasant, uncomfortable, but in no acute distress. FOCUSED EXAM - BACK: Range of motion is guarded in lateral rotation and flexion/extension. Paravertebral muscles are taut but non-spasmodic. Generalized tenderness diffusely to facet palpation, specifically L3, L4, L5 bilaterally. Tova's point is tender bilaterally. FABERs is negative. MUSCULOSKELETAL: Diffuse muscle atrophy noted to bilateral lower extremities. Motor is 3/5 bilaterally and he uses a cane to ambulate. NEUROLOGICAL: Diffuse hypoesthesia noted along the bilateral lower extremities to the length of his toes. Blunted Achilles and patellar reflexes. DIAGNOSIS: Lumbar radiculitis, lumbar degenerative disc disease, lumbar spondylosis and lumbar spinal canal stenosis. PLAN: We will repeat a lumbar epidural steroid injection to help decrease inflammation and address his radicular pain. I did instruct him to take a 500 mg Extra Strength Tylenol along with each Percocet. Percocet will be increased from daily to b.i.d. 5/325. Boost supplements were recommended as was a multivitamin. Patient agrees with this plan of care, will be followed up in the office post procedure.[facility] [id number] Evaluation note* Encounter Date Diagnosis Assessment Notes Treatment Notes Treatment Clinical Notes Oct, Atrial fibrillation (ICD-10 - I48.91) Blood pressure upon check in is WNL. He is to follow with cardiology as scheduled. Refill provided for the klor-con. Oct, CHF (congestive heart failure) (ICD-10 - I50.9) Patient reports continued swelling despite the Bumex. He does not take this daily but admits he took it every day for three days in a row and lost 9lbs. He was instructed to take a 1/2 tablet every day in hopes to manage his swelling better. He voiced understanding. [employer] Other 07-25-2022 Evaluation note* Encounter Date Diagnosis Assessment Notes Treatment Notes Treatment Clinical Notes Sep, CHF (congestive heart failure) (ICD-10 - I50.9) [employer] Other 07-08-2022 Evaluation note* Encounter Date Diagnosis Assessment Notes Treatment Notes Treatment Clinical Notes Sep, CHF (congestive heart failure) (ICD-10 - I50.9) Patient is to hold bumex until re-evaluated in one month per Dr. Feliciano Ga. [employer] Other 07-07-2022 Evaluation note* Encounter Date Diagnosis Assessment Notes Treatment Notes Treatment Clinical Notes Sep, Atrial fibrillation (ICD-10 - I48.91) [employer] Other 07-01-2022 Evaluation note* Encounter Date Diagnosis Assessment Notes Treatment Notes Treatment Clinical Notes 01 Wolf, 2022 Insomnia (ICD-10 - G47.00) Sep, Gout (ICD-10 - M10.9) [employer] Other 06-27-2022 Evaluation note* Encounter Date Diagnosis Assessment Notes Treatment Notes Treatment Clinical Notes Aug, Hypothyroidism, unspecified (ICD-10 - E03.9) Lab results indicate that patient is on too much thyroid supplement at this time. Need to decrease dose to 137 mcg daily and will recheck this level again in 4 months. Aug, Hypertension (ICD-10 - I10) Lab results reviewed with patient. Levels are stable. Blood pressure is good on current regimen. Aug, Atrial fibrillation (ICD-10 - I48.91) Patient is under the care of Cardiology. He is currently is in AF today. He did see health and safety tech a few weeks ago and is stable at this time. He will see him again in one year. Sooner if needed. Continue with current regimen. Aug, Hyperlipidemia (ICD-10 - E78.5) Lipid panel reviewed with patient. Levels are well controlled on current meds. Liver enzymes are within normal limits. No increase in myalgia or joint pain. Tolerating statin therapy well. This will be monitored Aug, CHF (congestive hear t failure) (ICD-10 - I50.9) Lab results have been reviewed with patient. Renal function has improved. Electrolytes normal. Glucose is stable. Patient will continue with current medications at this time. [employer] Other 06-09-2022 NoteCONSULTATION CONSULTATION DATE: 08/13/2021 This is a pleasant, 81-year-old gentleman, returned to the clinic status post lumbar epidural steroid injection, which was completed on 07/28/2021. The patient reports 50% relief for two days. Patient states his pain is 4/10 today and primarily to the lower extremity to the anterior portion of his leg. Patient states he spent most of the day on the boat yesterday and is complaining of leg weakness and tiredness as a result of that. Stairs, bending, transitioning positions and lifting aggravate his pain. Sitting for short periods of time and lying down decrease his pain. Current medications include Percocet 5/325 daily p.r.n., trazodone, magnesium, Robaxin and Eliquis. At his last appointment, the patient as prescribed Mirapex 0.25 q.h.s. for leg cramps, but patient reports that it overly relaxes all of his bodily functions during the night, and he prefers not to take that. Patient's REVIEW OF SYSTEMS / PAST MEDICAL HISTORY / ALLERGIES and IMAGES have been reviewed and they are noted on the chart. PHYSICAL EXAM: VITAL SIGNS: Blood pressure 85/53, heart rate is 60. Temperature is 96.9. He is 5'6 and weighs 208 pounds. GENERAL APPEARANCE: Pleasant, appropriate, in no acute distress. Patient denies dizziness with noted low blood pressure. FOCUSED EXAM - BACK: Range of motion is slightly guarded in lateral rotation and flexion/extension. Bilateral paravertebral muscles are taut but non-spasmodic. Tova's point is non-tender bilaterally. Reproduction of spinal axial pain noted to direct compression along the posterior elements of the lumbar facets of L3, L4, L5 bilaterally. MUSCULOSKELETAL: Diffuse muscle atrophy noted bilateral lower extremities. Left is greater than right. Patient does use a cane to ambulate. He ambulates with a slow antalgic gait. NEUROLOGICALLY: Patchy hypoesthesia noted along L5-S1 bilateral lower extremities, left greater than right. Blunted bilateral patellar reflexes. IMPRESSION: Chronic lower back pain, lumbar radiculitis, muscle atrophy and deconditioning. PLAN: I proposed that the patient participate in physical therapy 2-3 times a week for six weeks, due to his significant deconditioning. Patient agrees to do this. He did receive testosterone cypionate in the OR at his procedure. I would like him to have two additional injections, three weeks apart, that can be timed with his physical therapy appointments. A refill for his Percocet 5/325 daily p.r.n. will be sent as well today. I did encourage him to take at least 1-2 Boost supplements daily, in addition to maintaining his multivitamin. He will be seen in the clinic in three months' time unless otherwise indicated. [facility] Signed and Approved by: MONSERRAT RODARTE . 08/20/2021 16:02:00[facility]03-21-2022 Evaluation note* Encounter Date Diagnosis Assessment Notes Treatment Notes Treatment Clinical Notes May, Insomnia (ICD-10 - G47.00) [facility] Other 01-05-2022 Evaluation note* Encounter Date Diagnosis Assessment Notes Treatment Notes Treatment Clinical Notes Mar, Atrial fibrillation (ICD-10 - I48.91) [facility] Other 12-30-2021 Evaluation note* Encounter Date Diagnosis Assessment Notes Treatment Notes Treatment Clinical Notes Feb, Insomnia (ICD-10 - G47.00) [facility] Other 11-15-2021 Evaluation note* Encounter Date Diagnosis Assessment Notes Treatment Notes Treatment Clinical Notes Jan, Chronic pain (ICD-10 - G89.29) Patient is to follow with Dr. Brambila as scheduled. He is scheduled for an ablation tomorrow. Jan, Atrial fibrillation (ICD-10 - I48.91) Patient is to continue to follow with Dr. Mcintyre as scheduled. Patient states this is every 6 months. Jan, Hypothyroidism, unspecified (ICD-10 - E03.9) Jan, Hyperlipidemia (ICD-10 - E78.5) Jan, BPH (benign prostati c hypertrophy) (ICD-10 - N40.0) Patient is to continue following with Dr. Berkowitz Jan, Screening for prostate cancer (ICD-10 - Z12.5) [facility] Other 03-19-2007 History general Narrative - Reported* Type Description Date Medical History EKG 05-23-2006 Medical History MRI Lumbar Spine 01-13-11; [facility] Medical History 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 Medical History 01/22/14-stress test and echocar diogram at [facility] Medical History follows with urology Medical History 05/11/16 Stress Test Medical History f/u with Dr Mcintyre for CHF, A-F ib Medical History Dr Brambila pain mgmt- back spondyl olysis Medical History MUGA Stress test 06/14/16 [facility] Medical History 05/10/2018 Colonscop y due to positive cologuard- polypectomy- Dr. Feliciano Medical History venous insufficiency Medical History HTN Medical History DJD Medical History Hypothyroidism Medical History Mild CRI Medical History CHF Surgical History Leg and ankle Surgical History Back Surgical History Both Shoulders Surgical History Hand Surgical History Nose Surgical History Tumor removed from back that wa s in the spine 02-24-2011 Surgical History 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 Surgical History Bilateral Cataract 2017 Surgical History LTKA- Dr. Lezama 11/05/19 Hospitalization History [facility] [place]- CHF, A-Fib 04/2016 [facility] Other Consult note Author Vikas Mane [facility] January 10, 2022 12:35pm Note Date/Time January 10, 2022 9 :20am [facility] [address] [place] [address] Neurology Consult Note Signed Patient: Irineo Wallis Jr MR# : [id number] : 1940 Acct:[id number] Age/Sex: 81 / M Adm Date: 2 Loc: Room: [address] [place] [address] Type: ADM IN Attending Dr: Dharmesh Zavala DO Copies to: DO Feliciano Pollock DO Kristopher L Lindbloom, DO~ HPI Consult Date: 01/10/22 Assistant Professor Of History: Vikas Mane DO PMFSH Vaccinated for COVID-19?: Yes Medical History (Updated 01/10/22 @ 11:30 by Marv Drew MD) Atrial fibrillation BPH (benign prostatic hyperplasia) Chronic CHF DJD (degenerative joint disease) History of gastric ulcer Hypothyroidism 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 Osteoarthritis Renal calculi Sleep apnea does not use equipment Surgical History History of endoscopic sinus surgery History of excision of Zenker's diverticulum Transcervial resection 2010 History of lithotripsy Left ; with cyst, stents () History of repair of rotator cuff Bilateral- History of total left hip arthroplasty 2011 History of total left knee replacement History of total right knee replacement 2015 Hx of decompressive lumbar laminectomy 2010-with tumor resection Family History Mother Alzheimers disease Hx of CABG CAD (coronary artery disease) Myocardial infarct Brother Myocardial infarct Father Cirrhosis Sister Cancer Social History Smoking Status: Former smoker Tobacco Type: cigarettes Substance Use Type: Alcohol Substance Abuse Comment: 3 drinks a day >6 Meds Medications and Allergies Allergies fentanyl Allergy (Verified 01/09/22 09:38) Dizziness indomethacin [From Indocin] Allergy (Verified 01/09/22 09:38) Dizziness Penicillins Allergy (Verified 01/09/22 09:38) Weakness zolpidem [From Ambien] Adverse Reaction (Verified 01/09/22 09:38) Confusion Home Medications acetaminophen 500 mg tablet 1,000 mg PO BID #60 tabs 01/04/20 [Rx Confirmed 01/09/22] allopurinol 300 mg tablet 300 mg PO DAILY #30 tabs 01/04/20 [Rx Confirmed 01/09/22] apixaban 5 mg tablet (Eliquis) 5 mg PO BID #60 tabs 01/04/20 [Rx Confirmed 01/09/22] atorvastatin 40 mg tablet 40 mg PO QHS #30 tabs 01/04/20 [Rx Confirmed 01/09/22] carvedilol 6.25 mg tablet 6.25 mg PO BID.WITH.MEALS #60 tabs 01/04/20 [Rx Confirmed 01/09/22] digoxin 125 mcg (0.125 mg) tablet 125 mcg PO DAILY #30 tabs 01/04/20 [Rx Confirmed 01/09/22] docusate sodium 100 mg capsule (DOK) 100 mg PO BID #60 caps 01/04/20 [Rx Confirmed 01/09/22] levothyroxine 150 mcg tablet (Synthroid) 150 mcg PO DAILY@0630 #30 tabs 01/04/20[Rx Confirmed 01/09/22] magnesium oxide 400 mg (241.3 mg magnesium) tablet 400 mg PO DAILY #30 tabs 01/04/20 [Rx Confirmed 01/09/22] oxycodone-acetaminophen 5 mg-325 mg tablet 1 tab PO Q4H PRN Mild Pain 7 days #30tabs 01/04/20 [Rx Confirmed 01/09/22] sacubitril 24 mg-valsartan 26 mg tablet (Entresto) 1 tab PO BID #60 tabs 01/04/20 [Rx Confirmed 01/09/22] bumetanide 1 mg tablet 0.5 mg PO DAILY@0800 01/09/22 [History Confirmed 01/09/22] eszopiclone 3 mg tablet 3 mg PO HS 01/09/22 [History Confirmed 01/09/22] fluticasone propionate 50 mcg/actuation nasal spray,suspension 1 spray Nare- BothQHS PRN Nasal Congestion 01/09/22 [History Confirmed 01/09/22] potassium chloride 20 mEq tablet,extended release(part/cryst) (Klor-Con M) 20 meq PO QPM 01/09/22 [History Confirmed 01/09/22] sulfamethoxazole 800 mg-trimethoprim 160 mg tablet (Bactrim DS) 1 tab PO BID 01/09/22 [History Confirmed 01/09/22] trazodone 50 mg tablet 50 mg PO HS 01/09/22 [History Confirmed 01/09/22] Exam Physical Exam Vital Signs: Temp Pulse Resp BP Pulse Ox O2 Del Method O2 Flow Rate 97.7 F 77 18 127/77 97 Nasal Cannula 2 01/10/22 08:00 01/10/22 08:58 01/10/22 08:00 01/10/22 08:00 01/10/22 08:00 01/10/22 08:00 01/10/22 08:00 Results Laboratory Findings CBC and BMP: 01/10/22 06:56 01/10/22 06:56 Diagnostic Findings Imaging/Impressions: ITS Impressions Cervical Spine CT 01/09/22 09:47 IMPRESSION: No acute process Impression dictated by: Esa Cardoso M.D.01/09/2022 1:02 PM Dictation Location: [facility] 01/09/22 09:47 IMPRESSION: No acute intracranial findings. Impression dictated by: Esa Cardoso M.D.01/09/2022 1:00 PM Dictation Location: [facility] 01/09/22 09:47 IMPRESSION: NO ACUTE LUMBAR SPINE FRACTURE OR VERTEBRAL DISPLACEMENT. Impression dictated by: Esa Cardoso M.D.01/09/2022 1:11 PM Dictation Location: [facility] 01/09/22 09:47 IMPRESSION: No fracture. Thoracic spondylosis. Moderate right and small left pleural effusions. Impression dictated by: Esa Cardoso M.D.01/09/2022 1:06 PM Dictation Location: [facility] Chest X-Ray 01/09/22 09:48 IMPRESSION: Developing groundglass parenchymal densities greater on the RIGHT. Consider pulmonary edema. Impression dictated by: Esa Cardoso M.D.01/09/2022 10:11 AM Dictation Location: [place] [address] Renal Ultrasound 01/10/22 05:00 IMPRESSION: No hydronephrosis. Impression dictated by: Esa Cardoso M.D.01/10/2022 9:07 AM Dictation Location: [place] [address] Assessment/Plan (1) Falls frequently: Assessment/Problem Details: HPI: 81-year-old man. Presented to the emergency department on January 09, 2022 via EMS for evaluation of fall and injury. He got up to go to the bathroom in the middle the night with his walker and lost his balance and fell and was unable toget back up, being stuck on the floor for several hours. It sounds like there may have been some preceding dizziness that contributed. He had complained of low back pain. History of atrial fibrillation and is on Eliquis. History of congestive heart failure. He has had multiple falls in recent history. Oxygen saturation emergency department was only 87% and is now requiring supplemental oxygen which is new for him. CT scan of the head and spine were unrevealing. CK 231. BNP 1810. Chest x-ray with bilateral pleural effusions. New macrocytosis. Most recent EF was acceptable. Recent constipation. Recently taken off some medications that were meant to help with prostate issues. Sees urology. Reported history of an unspecified tumor of the lumbar spine. Daughter had handwritten note that said ependymoma. Medical history contains some data about a neoplasm of the lumbar spine with resection of myxopapillary ependymoma in 1988 (?) and also with radiation therapy with that. He said Dr. Matias did the operation who I do not think was in practice that long ago but I could be wrong. They were told that whomever did the resection could not take all of it. He has subsequent spinal imaging that continues to show some evidence of tumor. He has a lot of low back pain. Some of those back pain seemto radiate into his upper thighs, which he describes as a dull ache. They also mention that urology had done a urine culture and they just got an voicemail that says that it was positive and they were going to be sending in Macrobid to his pharmacy. EXAMINATION: Well-kempt. No distress. No deformities or trauma. Normal spinal curvature. Limbs seem well-perfused. No significant edema. Normal work of breathing. Visualized skin is generally intact and without lesions. Affect normal. Patient is alert and generally oriented. Attention normal. Speech is fluent and nondysarthric. Pupils are equal and reactive Ocular motility is full. No nystagmus. Facial sensation is normal. Hearing is normal. Facial strength is normal. Tongue is midline. Muscle bulk, tone, and strength are normal. No tremors. Reflexes normal throughout. No pathologic reflexes. Light touch is normal. Vibratory sensation is normal. Normal rapidly alternating movements. No limb dysmetria with [id number] testing. DATA REVIEW: MRI lumbar spine from July 08, 2004 shows a stable contrast-enhancing mass within the intradural space at the L2-3 level, and postsurgical changes with bilateral laminectomies at L4-5 and L5-S1 MRI lumbar spine from January 06, 2015 shows laminectomy defects at L2-L5 and redemonstration of intradural foci of enhancement in the lower lumbar spine and severe central spinal canal stenosis at L3-4 ASSESSMENT: Chronic low back pain and lower extremity weakness. Progressively worsening. 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 Also with severe lumbosacral degenerative disease and multiple levels of significant stenosis and neuroforaminal stenosis,status post decompressive lumbar surgery. Symptoms into the legs and thighs mayrepresent chronic lumbar radiculopathy. He has very little sensation in the feet, and no vibratory sensation, which likely affects his balance. Also consider polyneuropathy. I suspect his CHF, hypoxia, and urinary tract infection could only make all of his symptoms seem worse. Do not suspect cerebrovascular cause for any of his presenting symptoms. PLAN: 1. MRI lumbar spine with and without contrast 2. Neuropathy lab work-up: B12 was 458, SPEP and immunofixation pending, A1c pending 3. Strong consideration for neurosurgical consult depending on MRI results Code(s): R29.6 - Repeated falls Status: Acute (2) Altered mental status: Code(s): R41.82 - Altered mental status, unspecified Status: Acute Documented By: Vikas Mane DO 01/10/22 0912 Signed By: <Electronically signed by Vikas Mane DO> 01/10/22 1235 [facility] Work Phone: Consult note Author Marv Drew [facility] January 10, 2022 11:32am Note Date/Time January 10, 2022 1 1:32am [facility] [address] [place] [address] Cardiology Consult Note Signed Patient: Irineo Wallis Jr MR# : [id number] : 1940 Acct:[id number] Age/Sex: 81 / M Adm Date: 2 Loc: Room: [address] [place] [address] Type: ADM IN Attending Dr: Dharmesh Zavala DO Copies to: DO Marv Catalan MD, FACC Dharmesh Zavala, ~ Cardiology HPI History of Present Illness Consult Date: 01/10/22 Reason for Consult: Bradycardia HPI: Mr. Wallis is a 81 year old male who is being seen at request of the hospitalist for evaluation of bradycardia. Patient is known to have chronic atrial fibrillation managed with Eliquis and no antiarrhythmic therapy. He has been also on Coreg and digoxin due to the presence of the ventricular systolic dysfunction and has followed with Dr. Mcintyre. Lately the patient has been having recurrent symptoms of dizziness with ambulation and near syncope but no true syncope. He denies any chest pain orthopnea PND but has chronic lower extremity edema. His last echocardiogram 2019 showed EF 50-55% which is an improvement from 2017 when it was 35%. His cardiac catheterization 2016 revealed minimal coronary artery disease. He has no history of strokes or TIAs. Denies any bleeding complications except for bruising on the skin. Because of the patient's recurrent dizziness and falling down he came into the hospital forevaluation. His monitor revealed atrial fibrillation and at times he has pausesup to 3 seconds. The concern was regarding the bradycardia arrhythmias. Review of Systems Review of Systems Review of systems: As noted above in HPI there has been no indication for worsening heart failure but he does have lower extremity edema. There is no dysuria or hematuria no melena. Denies any fever or chills and denies any chest pain. He is generally weak but has good appetite. He has adequate social support at home. 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 Osteoarthritis Renal calculi Sleep apnea does not use equipment Surgical History History of endoscopic sinus surgery 1989' History of excision of Zenker's diverticulum Transcervial resection 2009 History of lithotripsy Left ; with cyst, stents () History of repair of rotator cuff Bilateral- History of total left hip arthroplasty 2011 History of total left knee replacement History of total right knee replacement 2014 Hx of decompressive lumbar laminectomy 2010-with tumor resection Family History Mother Alzheimers disease Hx of CABG CAD (coronary artery disease) Myocardial infarct Brother Myocardial infarct Father Cirrhosis Sister Cancer Social History Smoking Status: Former smoker Tobacco Type: cigarettes Substance Use Type: Alcohol Substance Abuse Comment: 3 drinks a day >6 Meds Medications and Allergies Allergies fentanyl Allergy (Verified 01/09/22 09:38) Dizziness indomethacin [From Indocin] Allergy (Verified 01/09/22 09:38) Dizziness Penicillins Allergy (Verified 01/09/22 09:38) Weakness zolpidem [From Ambien] Adverse Reaction (Verified 01/09/22 09:38) Confusion Home Medications acetaminophen 500 mg tablet 1,000 mg PO BID #60 tabs 01/04/20 [Rx Confirmed 01/09/22] allopurinol 300 mg tablet 300 mg PO DAILY #30 tabs 01/04/20 [Rx Confirmed 01/09/22] apixaban 5 mg tablet (Eliquis) 5 mg PO BID #60 tabs 01/04/20 [Rx Confirmed 01/09/22] atorvastatin 40 mg tablet 40 mg PO QHS #30 tabs 01/04/20 [Rx Confirmed 01/09/22] carvedilol 6.25 mg tablet 6.25 mg PO BID.WITH.MEALS #60 tabs 01/04/20 [Rx Confirmed 01/09/22] digoxin 125 mcg (0.125 mg) tablet 125 mcg PO DAILY #30 tabs 01/04/20 [Rx Confirmed 01/09/22] docusate sodium 100 mg capsule (DOK) 100 mg PO BID #60 caps 01/04/20 [Rx Confirmed 01/09/22] levothyroxine 150 mcg tablet (Synthroid) 150 mcg PO DAILY@0630 #30 tabs 01/04/20[Rx Confirmed 01/09/22] magnesium oxide 400 mg (241.3 mg magnesium) tablet 400 mg PO DAILY #30 tabs 01/04/20 [Rx Confirmed 01/09/22] oxycodone-acetaminophen 5 mg-325 mg tablet 1 tab PO Q4H PRN Mild Pain 7 days #30tabs 01/04/20 [Rx Confirmed 01/09/22] sacubitril 24 mg-valsartan 26 mg tablet (Entresto) 1 tab PO BID #60 tabs 01/04/20 [Rx Confirmed 01/09/22] bumetanide 1 mg tablet 0.5 mg PO DAILY@0800 01/09/22 [History Confirmed 01/09/22] eszopiclone 3 mg tablet 3 mg PO HS 01/09/22 [History Confirmed 01/09/22] fluticasone propionate 50 mcg/actuation nasal spray,suspension 1 spray Nare- BothQHS PRN Nasal Congestion 01/09/22 [History Confirmed 01/09/22] potassium chloride 20 mEq tablet,extended release(part/cryst) (Klor-Con M) 20 meq PO QPM 01/09/22 [History Confirmed 01/09/22] sulfamethoxazole 800 mg-trimethoprim 160 mg tablet (Bactrim DS) 1 tab PO BID 01/09/22 [History Confirmed 01/09/22] trazodone 50 mg tablet 50 mg PO HS 01/09/22 [History Confirmed 01/09/22] Exam Physical Exam Vital Signs: Temp Pulse Resp BP Pulse Ox O2 Del Method O2 Flow Rate 97.7 F 76 16 113/73 97 Nasal Cannula 1 01/10/22 08:00 01/10/22 11:01 01/10/22 11:01 01/10/22 11:01 01/10/22 11:01 01/10/22 11:01 01/10/22 11:01 Const General: cooperative, comfortable and no acute distress Nutritional Appearance: obese Orientation: alert, awake and oriented x3 HEENT Head: normal to inspection, normocephalic and atraumatic Ears: hearing grossly normal bilaterally Nose: external nose normal Face and sinus: normal facial exam Eyes General: appearance normal, both eyes and all related structures Conjunctivae: conjunctivae normal Pupils: PERRL Neck Neck: normal visual inspection, full ROM, no lymphadenopathy, trachea midline and supple Neck mass: No Thyroid: thyroid normal Carotids: normal carotid upstroke Resp Effort & Inspection: normal respiratory effort Auscultation: clear to auscultation bilaterally Cardio Jugular venous pressure: no JVD Palpation: normal PMI Rate: regular rate Rhythm: abnormal rhythm irregularly irregular Heart Sounds: S1 normal and S2 normal GI Inspection: normal to inspection Palpation: soft and no hepatosplenomegaly Auscultation: normal bowel sounds Extrem General: pedal edema (2+ bilateral lower extremity edema) Results Labs CBC & CMP: 01/10/22 06:56 01/10/22 06:56 Lab results: Cardiac Enzymes 01/10/22 Range/Units 06:56 B-Natriuretic Peptide 679.0 H (5-100) pg/mL CBC 01/10/22 Range/Units 06:56 RBC 3.71 L (3.90-5.60) x10E6/uL Hgb 12.5 L (13.0-17.0) g/dL Hct 37.7 L (38.8-50.0) % Plt Count 167 (150-450) x10E3/uL Neut # (Auto) 7.3 (1.8-7.7) x10E3/uL Lymph # (Auto) 1.0 (1.00-4.8) x10E3/uL [place] # (Auto) 1.0 H (0.0-0.8) x10E3/uL Eos # (Auto) 0.0 (0.0-0.45) x10E3/uL Baso # (Auto) 0.1 (0.0-0.2) x10E3/uL Comprehensive Metabolic Panel 01/10/22 Range/Units 06:56 Sodium 134 L (136-146) mmol/L Potassium 3.8 (3.5-5.1) mmol/L Chloride 99 (95-114) mmol/L Carbon Dioxide 26.7 (22.0-30.0) mmol/L BUN 23 (9-23) mg/dL Creatinine 1.60 H (0.64-1.27) mg/dL Glucose 97 (70-100) mg/dL Calcium 8.6 (8.2-10.2) mg/dL Intake and Output 01/10/22 01/10/22 01/10/22 00:59 07:59 15:59 Intake Total Output Total Balance Intake: Oral Output: Urine Urine Amount (Catheter) Condom Other: # Incontinent Voids Weight Date of Last Bowel Movement 01/10/22 Patient Weight 01/10/22 22:59 Weight 93.7 kg Lab 01/09/22 10:36 PT 28.4 H INR 2.5 APTT 39.1 H EKG Interpretations EKG Attestation EKG: I reviewed this ECG and interpreted as documented below: (Atrial fibrillation with PVCs) A&P - Cardiology (1) HFrEF (heart failure with reduced ejection fraction): Assessment/Problem Details: Appears to be for the most part compensated. We will repeat echocardiogram to reassess ejection fraction especially in view of the lower extremity edema despite medical therapy. Plan: Continue present medical therapy but due to bradycardia hold off on the Coreg. We will repeat the echocardiogram to reassess ejection fraction. Eventually thepatient may need to have a pacemaker Code(s): I50.20 - Unspecified systolic (congestive) heart failure (2) Atrial fibrillation: Assessment/Problem Details: This is chronic and managed with rate control anticoagulation. He is currently having significant pauses on telemetry. He is currently on 2 agents to contribute to this including digoxin and Coreg. Plan: Continue Eliquis, hold off on digoxin and Coreg. We will await echocardiogram for further plans of therapy. If ejection fraction remains low he does need beta- saroj therapy therefore he will need a pacemaker. Code(s): I48.91 - Unspecified atrial fibrillation (3) Bradycardia: Assessment/Problem Details: Caused by atrial fibrillation with slow ventricular response on 2 agents contributing to bradycardia that is digoxin and Coreg. Plan: Hold off on digoxin and Coreg for today and tomorrow, reassess ejection fractionby echo tomorrow Code(s): R00.1 - Bradycardia, unspecified Documented By: Marv Drew MD, [facility] 2 1125 Signed By: <Electronically signed by [facility] Marv Drew> 01/10/22 1132 [facility] Work Phone: Consult note Author Victor Manuel Reynolds [facility] January 13, 2022 10:45am Note Date/Time January 13, 2022 1 0:45am [facility] [address] [place] [address] Infect. Disease Consult Note Signed Patient: Irineo Wallis Jr MR# : [id number] : 1940 Acct:[id number] Age/Sex: 81 / M Adm Date: 2 Loc: Room: [address] [place] [address] Type: ADM IN Attending Dr: Raji Ennis MD Copies to: MD Feliciano Giles DO Michael S Blank, MD~ HPI Data of Consult Consult date: 01/13/22 Requesting Physician: Raji Ennis MD Primary Care Provider: Feliciano Ga DO Consult Narrative History of present illness: Mr. Wallis is a 81 year old male who was admitted back on the and at thattime was afebrile. He came into the hospital after having falls at home. Laboratory data and imaging suggested acute on chronic congestive heart failure so he was managed for this. Patient has multiple bandages and Band-Aids on his extremities and states he when he fell he has road rash now. Patient states none of these are really that tender. He states he has pain when he walks but this is not new. Patient's vital signs have shown that he is essentially had normal vital signs up until yesterday when he spiked low-grade fever to T-max 100.6. This normalized overnight and he is afebrile this morning. When the fever occurred blood cultures were sent and empiric vancomycin and cefepime werestarted. Chest x-ray also was obtained that showed improving pulmonary edema. No urine analysis urine culture was sent. Patient sitting in his recliner todaynext was bed and states he still feels overall weak. He states he has pain in his joints. He does not complain of any significant localizing 1 pain more thanthe other. CC: Raji Ennis MD Review of Systems Review of Systems All other systems reviewed & are negative unless noted below or in HPI [facility] Attestation Statement: The following information was validated with the patient. 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 Osteoarthritis Renal calculi Sleep apnea does not use equipment Surgical History History of endoscopic sinus surgery History of excision of Zenker's diverticulum Transcervial resection 2009 History of lithotripsy Left ; with cyst, stents () History of repair of rotator cuff Bilateral- History of total left hip arthroplasty 2011 History of total left knee replacement History of total right knee replacement 2014 Hx of decompressive lumbar laminectomy 2010-with tumor resection Family History Mother Alzheimers disease Hx of CABG CAD (coronary artery disease) Myocardial infarct Brother Myocardial infarct Father Cirrhosis Sister Cancer Social History Smoking Status: Former smoker Tobacco Type: cigarettes Substance Use Type: Alcohol Substance Abuse Comment: 3 drinks a day >6 Allergies and Medications Allergies and Active Meds Allergies fentanyl Allergy (Verified 01/09/22 09:38) Dizziness indomethacin [From Indocin] Allergy (Verified 01/09/22 09:38) Dizziness Penicillins Allergy (Verified 01/09/22 09:38) Weakness zolpidem [From Ambien] Adverse Reaction (Verified 01/09/22 09:38) Confusion Active Medications Acetaminophen (Acetaminophen 325 Mg Tablet) 650 mg PO Q6HR PRN PRN Reason: Pain Scale 1 - 3 or fever Stop: 01/09/23 14:40 Last Admin: 01/12/22 11:38 Dose: 650 mg Allopurinol (Allopurinol 300 Mg Tablet) 300 mg PO DAILY ANIBAL Stop: 01/10/23 08:59 Last Admin: 01/13/22 09:43 Dose: 300 mg Apixaban (Apixaban 5 Mg Tablet) 5 mg PO BID ANIBAL Stop: 01/09/23 20:59 Last Admin: 01/13/22 09:43 Dose: 5 mg Atorvastatin Calcium (Atorvastatin 40 Mg Tablet) 40 mg PO QHS ANIBAL Stop: 01/09/23 21:59 Last Admin: 01/12/22 22:51 Dose: 40 mg Bisacodyl (Bisacodyl 10 Mg Supp.Rect) 10 mg DC DAILY PRN PRN Reason: Constipation Stop: 01/09/23 14:40 Bisacodyl (Bisacodyl 5 Mg Tablet.Dr) 10 mg PO DAILY PRN PRN Reason: Constipation Stop: 01/09/23 14:40 Last Admin: 01/12/22 08:22 Dose: 10 mg Bumetanide (Bumetanide 1 Mg/4 Ml Vial) 1 mg IV-PUSH BID@0800,1600 [facility] Stop: 01/13/23 07:59 Last Admin: 01/13/22 09:43 Dose: 1 mg Docusate Sodium (Docusate 100 Mg Capsule) 100 mg PO BID [facility] Stop: 01/09/23 20:59 Last Admin: 01/13/22 09:43 Dose: 100 mg Fluticasone Propionate (Fluticasone Propionate [place] [address] [place]/16 Gm Bottle) 1 spray NARES-BOTH QHS PRN PRN Reason: Nasal Congestion Stop: 01/09/23 15:16 Magnesium Sulfate (Magnesium Sulf 2gm-*Swfi*) 2 gm in 50 mls @ 25 mls/hr IV DAILY PRN PRN Reason: Magnesium Level < 1.5 Stop: 01/09/23 14:40 Cefepime HCl (Maxipime) 2 gm in 50 mls @ 100 mls/hr IV Q12H [facility] Last Admin: 01/13/22 03:07 Dose: 100 mls/hr Levothyroxine Sodium (Levothyroxine 150 Mcg Tablet) 150 mcg PO DAILY@0630 [facility] Stop: 01/10/23 06:29 Last Admin: 01/13/22 06:26 Dose: 150 mcg Magnesium Hydroxide (Magnesium Hydroxide Susp 30 Ml Udc) 30 ml PO BID PRN PRN Reason: Constipation Stop: 01/09/23 14:40 Magnesium Oxide (Magnesium Oxide 400 Mg Tablet) 400 mg PO DAILY ANIBAL Stop: 01/10/23 08:59 Last Admin: 01/13/22 09:43 Dose: 400 mg Nitroglycerin (Nitroglycerin 0.4 Mg Tab.Subl) 0.4 mg SUBLINGUAL Q5MIN.X3 PRN PRN Reason: Chest Pain Stop: 01/09/23 14:40 Pom Eszopiclone 3 Mg (Tablet) 3 mg PO HS [facility] Stop: 01/11/23 21:59 Last Admin: 01/12/22 22:51 Dose: 3 mg Nystatin (Nystatin 100,000 Unit/Gram Powder 15 Gm Bottle) 1 applic TOPICAL TID [facility] Stop: 01/09/23 21:59 Last Admin: 01/13/22 09:43 Dose: 1 applic Ondansetron HCl (Ondansetron 4 Mg/2 Ml Vial) 4 mg IV-PUSH Q8H PRN PRN Reason: Nausea And Vomiting Stop: 01/09/23 14:40 Oxycodone HCl (Oxycodone Ir 5 Mg Tablet) 5 mg PO Q4HR PRN PRN Reason: Pain Scale 4 - 7 Last Admin: 01/13/22 09:43 Dose: 5 mg Potassium Chloride (Potassium Chloride Er 20 Meq Tab.Er.Prt) 20 meq PO DAILY PRN PRN Reason: Hypokalemia Stop: 01/09/23 14:40 Last Admin: 01/11/22 08:43 Dose: 20 meq Potassium Chloride (Potassium Chloride Er 20 Meq Tab.Er.Prt) 40 meq PO DAILY PRN PRN Reason: Hypokalemia Stop: 01/09/23 14:40 Potassium Chloride (Potassium Chloride Er 20 Meq Tab.Er.Prt) 20 meq PO QPM [facility] Stop: 01/09/23 20:59 Last Admin: 01/12/22 22:51 Dose: 20 meq Sodium Chloride (Sodium Chloride 0.9 % 10 Ml Syringe) 0 ml IV-PUSH PRN PRN PRN Reason: Flush Stop: 01/09/23 09:37 Last Admin: 01/10/22 23:31 Dose: 10 ml Sodium Chloride (Sodium Chloride 0.9 % 10 Ml Syringe) 0 ml IV-PUSH QSHIFT [facility] Stop: 01/09/23 21:59 Last Admin: 01/13/22 06:26 Dose: 10 ml Vancomycin HCl (Vancomycin - Pharmacy Dosing 1 Each Miscell) 1 each IV ONCE PRN; Protocol PRN Reason: ZZ.Pharmacy Consult Exam Physical Exam Vital Signs: Vital Signs Temp Pulse Resp BP Pulse Ox O2 Del Method 01/13/22 08:00 Room Air 01/13/22 04:00 98.7 F 73 18 102/49 L 90 L Room Air 01/13/22 00:00 Room Air 01/12/22 20:00 Room Air 01/12/22 23:11 98.7 F 77 18 123/70 92 L Room Air 01/12/22 20:00 98.3 F 67 18 133/65 95 Room Air 01/12/22 16:00 Room Air 01/12/22 15:55 98.8 F 01/12/22 15:25 Room Air 01/12/22 15:15 100.0 F H 51 L 18 118/67 93 L Room Air 01/12/22 13:35 99.6 F H 01/12/22 12:59 100.4 F H 01/12/22 12:10 100.6 F H 01/12/22 11:31 100.2 F H 60 16 161/93 H 93 L Room Air 01/12/22 11:30 Room Air Const General: comfortable and no acute distress Orientation: oriented x3 HEENT Head: normal to inspection Nose: external nose normal Face and sinus: normal facial exam Mouth: oral mucosae normal Eyes General: appearance normal, both eyes and all related structures Neck Neck: normal visual inspection Chest Chest palpation & inspection: normal inspection of the chest Resp Effort & Inspection: normal respiratory effort, able to speak in complete sentences and symmetric chest movement Auscultation: clear to auscultation bilaterally Cardio Palpation: normal PMI Rate: regular rate GI Inspection: normal to inspection Palpation: soft and nontender General: other (chou) Skin General: other (multiple areas with bandages from traumas when he fell) Neuro General: patient oriented x3 Extrem Other: edema of gem LE. R ankle with chronic changes; Pain with palpation. NO erythema/warmth Results Labs CBC & Chem 7: 01/13/22 07:28 01/13/22 07:28 Labs: 01/13/22 07:28: Corrected WBC 9.4, Uncorrected WBC Count 9.4 01/13/22 07:28: BUN 24 H, Creatinine 1.44 H Microbiology Results Microbiology Narrative: 01/12/22 13:30 Blood Culture - Pending Blood - Left Antecubital 01/12/22 13:33 Blood Culture - Pending Blood - Left Hand 01/09/22 12:42 Urine Culture - Final Urine - Clean-Voided Midstream 30,000 colonies/ml mixed bacterial skin contaminants 2 Days Imaging and Cardiology Results Comments: Lumbar spine and thoracic spine CT done on admission without fracture or vertebral displacement. MRI of the lumbar spine pending from yesterday. 01/12/22 Chest x- ray with resolving pulmonary edema. A&P - Infectious Disease (1) Fever: Status: Acute Plan Patient in the hospital after falling at home. Patient without elevated white count or fever for the most part this hospital stay. Yesterday his temperature was raised for period of time and got to the high as 100.6. Given this blood cultures were sent chest x-ray was repeated. Empiric vancomycin and cefepime were started. 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 He has a documented spine surgery thatdates back to 1988 where this was resected. Given this history he is being further evaluated now with an MRI that is pending. CT scan of the lumbar and thoracic spine on admission did not show any type of fracture or concern. Giventhat he was already started on broad-spectrum antibiotic therapy yesterday would like to wait for cultures to return. Favor obtaining UA and urine culture as this was not done yesterday and I realize he was given antibiotics but he does have a chronic Chou and could easily have a urinary tract infection as well. Given his chronic swelling of his lower extremities and the ankle pain with discomfort we will check a serum uric acid but clinically he does not have any joints that appear consistent with acute gout. Documented By: Victor Manuel Reynolds MD 01/13/22 1033 Signed By: <Electronically signed by MD Victor Manuel Reynolds> 01/13/22 1045 [facility] Work Phone: Evaluation noteNo assessment information available [facility] Work Phone: Evaluation noteNo InformationNort Add2paper Other Evaluation note* Diagnosis Onset Date Resolution Status Acute decompensated heart failure acute Acute exacerbation of chronic low back pain acute Elevated troponin acute Fall acute Hypoxemia acute [facility] Work Phone: Evaluation note* Diagnosis Onset Date Resolution Status Acute decompensated heart failure acute Acute exacerbation of chronic low back pain acute [id number] acute Acute respiratory failure with hypoxia acute Altered mental status acute Anasarca acute Bladder retention acute Bradycardia acute Constipation acute Difficulty walking acute Elevated troponin acute Fall acute Falls frequently acute Fever acute Generalized weakness acute HFrEF (heart failure with reduced ejection fraction) acute Hypoxemia acute Impaired activities of daily living acute Myxopapillary ependymoma acu te Pleural effusion acute Sleep apnea acute Atrial fibrillation chronic Hypertension chronic [facility] Work Phone: History and physical note Author Dharmesh Zavala [facility] January 09, 2022 3:30pm Note Date/Time January 09, 2022 3 :30pm [facility] [address] [place] [address] Hospitalist H&P Signed Patient: Irineo Wallis Jr MR# : [id number] : 1940 Acct:[id number] Age/Sex: 81 / M Adm Date: 2 Loc: Room: [address] [place] [address] Type: ADM IN Attending Dr: Dharmesh Zavala DO Copies to: DO Dharmesh Catalan, ~ HPI DATE OF EXAMINATION: 01/09/22 CHIEF COMPLAINT: Fell, dyspnea, leg edema HISTORY OF PRESENT ILLNESS: This is an 81-year-old man who present emergency room today after a fall at home. He has had a number of falls at home lately but this one was the worst. In the ER he needed the supplemental oxygen being suctioned saturations were only 87%. He has never worn oxygen before. CT scanning of the head, cervical spine, thoracic spine, and lumbar spine were unrevealing for acute bony fractures. He had been laying on the floor for some time at home before his family members convinced him to go to the emergency room. His CPK is only mildly elevated at 231. He does have chronic atrial fibrillation and EKG shows atrial fibrillation with a controlled rate. His troponin was only mildly elevated at 101. B-type natriuretic peptide was very elevated at 1810, when itsbeen about 200-300 in the past. Chest x-ray shows evidence of bilateral pleuraleffusions, right worse than left. He had an extreme amount of pain and required a few doses of IV Dilaudid to try and get his pain under control in the emergency room. He has a history of a cardiac catheterization on May 2016. Minimal coronary artery disease but is left-ventricular ejection fraction was reduced at 35 to 40%. The last echocardiogram we have here from 2019 showed his EF improved to 50 to 55%. He does follow with Dr. Mcintyre. He is on Eliquis for the atrial fibrillation. I do notice that he has a new development of macrocytosis. He is accompanied in his room with his daughter. The patient describes that he was using his walker to navigate through the home where he lives alone independently and he was by the door jam. He describes a sudden onset of dizziness that then caused him to fall. He cannot really describe to me how he fell to the floor. He had a similar fall, accompanied by dizziness, just a couple days ago, and has fallen a handful of times over the last couple weeks. These falls led to some skin tears on his arms which he saw his primary care physician and they provided a cream and prescribed him Bactrim. He was given 1 mg of Bumex IV in the emergency room. When I walked in the room he was using a urinal to collect urine. He only voided about 100 mL. His daughter points out that he had seen a urologist in [place] recently. Patient used to be on a number of prostate medications but apparently they were stopped because they are not doing what they are supposed to be doing. The patient andhis daughter have a discussion about what urology was doing for the situation without finding a specific answer. Patient also describes that he has been veryconstipated lately and takes an unspecified [id number] generic stool softener. His daughter does point out that he has had a lot of problems walking, especially recenlty. She says it is like his knees and his hips and his anklesdo not bend. He does have a history of an unspecified tumor which seems to be located in the lumbar spine. The daughter says they have said that there is nothing more that they can do for that and she has handwritten note from home which seems to say ependymoma but has some other letters on it that I cannot tell what it is trying to spell. It seems like he got a number radiofrequency ablations by pain management doctor in [place]. Review of Systems Review of Systems Review of systems: 10 systems are reviewed and are negative except as mentioned elsewhere in the documentation. 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 Osteoarthritis Renal calculi Sleep apnea does not use equipment Surgical History History of endoscopic sinus surgery 1989' History of excision of Zenker's diverticulum Transcervial resection 2009 History of lithotripsy Left ; with cyst, stents () History of repair of rotator cuff Bilateral-1979' History of total left hip arthroplasty 2011 History of total left knee replacement History of total right knee replacement 2014 Hx of decompressive lumbar laminectomy 2010-with tumor resection Family History Mother Alzheimers disease Hx of CABG CAD (coronary artery disease) Myocardial infarct Brother Myocardial infarct Father Cirrhosis Sister Cancer Social History Smoking Status: Former smoker Tobacco Type: cigarettes Substance Use Type: Alcohol Substance Abuse Comment: 3 drinks a day >6 Meds Medications and Allergies Allergies fentanyl Allergy (Verified 01/09/22 09:38) Dizziness indomethacin [From Indocin] Allergy (Verified 01/09/22 09:38) Dizziness Penicillins Allergy (Verified 01/09/22 09:38) Weakness zolpidem [From Ambien] Adverse Reaction (Verified 01/09/22 09:38) Confusion Home Medications acetaminophen 500 mg tablet 1,000 mg PO BID #60 tabs 01/04/20 [Rx Confirmed 01/09/22] allopurinol 300 mg tablet 300 mg PO DAILY #30 tabs 01/04/20 [Rx Confirmed 01/09/22] apixaban 5 mg tablet (Eliquis) 5 mg PO BID #60 tabs 01/04/20 [Rx Confirmed 01/09/22] atorvastatin 40 mg tablet 40 mg PO QHS #30 tabs 01/04/20 [Rx Confirmed 01/09/22] carvedilol 6.25 mg tablet 6.25 mg PO BID.WITH.MEALS #60 tabs 01/04/20 [Rx Confirmed 01/09/22] digoxin 125 mcg (0.125 mg) tablet 125 mcg PO DAILY #30 tabs 01/04/20 [Rx Confirmed 01/09/22] docusate sodium 100 mg capsule (DOK) 100 mg PO BID #60 caps 01/04/20 [Rx Confirmed 01/09/22] levothyroxine 150 mcg tablet (Synthroid) 150 mcg PO DAILY@0630 #30 tabs 01/04/20[Rx Confirmed 01/09/22] magnesium oxide 400 mg (241.3 mg magnesium) tablet 400 mg PO DAILY #30 tabs 01/04/20 [Rx Confirmed 01/09/22] oxycodone-acetaminophen 5 mg-325 mg tablet 1 tab PO Q4H PRN Mild Pain 7 days #30tabs 01/04/20 [Rx Confirmed 01/09/22] sacubitril 24 mg-valsartan 26 mg tablet (Entresto) 1 tab PO BID #60 tabs 01/04/20 [Rx Confirmed 01/09/22] bumetanide 1 mg tablet 0.5 mg PO DAILY@0800 01/09/22 [History Confirmed 01/09/22] eszopiclone 3 mg tablet 3 mg PO HS 01/09/22 [History Confirmed 01/09/22] fluticasone propionate 50 mcg/actuation nasal spray,suspension 1 spray Nare- BothQHS PRN Nasal Congestion 01/09/22 [History Confirmed 01/09/22] potassium chloride 20 mEq tablet,extended release(part/cryst) (Klor-Con M) 20 meq PO QPM 01/09/22 [History Confirmed 01/09/22] sulfamethoxazole 800 mg-trimethoprim 160 mg tablet (Bactrim DS) 1 tab PO BID 01/09/22 [History Confirmed 01/09/22] trazodone 50 mg tablet 50 mg PO HS 01/09/22 [History Confirmed 01/09/22] Exam Physical Exam Vital Signs: Temp Pulse Resp BP Pulse Ox O2 Del Method O2 Flow Rate 97.7 F 68 16 152/75 H 96 Nasal Cannula 3 01/09/22 14:39 01/09/22 14:39 01/09/22 14:39 01/09/22 14:39 01/09/22 14:39 01/09/22 14:56 01/09/22 14:56 Narrative: GEN: Awake, alert, oriented x 3. Head: Normal Cephalic, Atraumatic. Eyes: Conjunctiva and sclera clear bilaterally. Nose: External nose and nares normal bilaterally. Mouth: Lips and tongue normal. Neck: No JVD. No thyromegaly. No lymphadenopathy. Lungs: Lung sounds diminished, especially bases bilaterally. No wheezing. No crackles. Heart: Irregularly irregular heart rate. Rate is controlled. I do not hear anymurmurs, rubs, or gallops. Abdomen: Soft, normal bowel sounds, no rigidity, guarding, or acute peritoneal signs. Does have abdominal distention and some anasarca with pitting edema in his abdomen Extremities: Massive edema from his ankles up to his thighs bilaterally. Musculoskeletal: Palpating down his cervical spine, thoracic spine, lumbar spineand sacrum does not reveal any point focal tenderness. Amazingly he does not really have any bruises on his back. There is a small scar in the lumbar regionfrom perhaps this chronic tumor issue that he had surgeries on in the past. Thelimit to the bruising that I see is a mild bruise on his right shoulder which actually looks 2 or 3 days old and some skin tears on his forearms and small bruise over the trochanteric area of his left hip that also looks a couple days old. Skin: No systemic rashes or lesions. Psychiatric: Calm. Flat affect. Somewhat delayed in providing much medical history. Results Lab Results Labs: Laboratory Last Values Corrected WBC 6.0 X10E3/uL (4.1-10.5) 01/09/22 10:36 Uncorrected WBC Count 6.0 x10E3/uL (4.5-11.0) 01/09/22 10:36 RBC 3.59 x10E6/uL (3.90-5.60) L 01/09/22 10:36 Hgb 12.1 g/dL (13.0-17.0) L 01/09/22 10:36 Hct 36.5 % (38.8-50.0) L 01/09/22 10:36 MCV 101.5 fl (83.5-101) H 01/09/22 10:36 MCH 33.7 pg (27.5-35.2) 01/09/22 10:36 MCHC 33.2 g/dL (32.5-35.6) 01/09/22 10:36 RDW 15.9 % (12.0-14.8) H 01/09/22 10:36 Plt Count 162 x10E3/uL (150-450) 01/09/22 10:36 MPV 8.3 fl (6.6-10.1) 01/09/22 10:36 Neut % (Auto) 71.2 % (.) 01/09/22 10:36 Lymph % (Auto) 13.5 % (.) 01/09/22 10:36 [place] % (Auto) 14.2 % (.) 01/09/22 10:36 Eos % (Auto) 0.1 % (.) 01/09/22 10:36 Baso % (Auto) 1.0 % (.) 01/09/22 10:36 Neut # (Auto) 4.3 x10E3/uL (1.8-7.7) 01/09/22 10:36 Lymph # (Auto) 0.8 x10E3/uL (1.00-4.8) L 01/09/22 10:36 [place] # (Auto) 0.9 x10E3/uL (0.0-0.8) H 01/09/22 10:36 Eos # (Auto) 0.0 x10E3/uL (0.0-0.45) 01/09/22 10:36 Baso # (Auto) 0.1 x10E3/uL (0.0-0.2) 01/09/22 10:36 Nucleated RBC % (auto) 0.1 % (0-0.5) 01/09/22 10:36 PT 28.4 Seconds (9.0-12.9) H 01/09/22 10:36 INR 2.5 01/09/22 10:36 APTT 39.1 Seconds (25.1-36.5) H 01/09/22 10:36 PHA Creatinine Clear 39.44 01/09/22 10:36 Sodium 136 mmol/L (136-146) 01/09/22 10:36 Potassium 4.1 mmol/L (3.5-5.1) 01/09/22 10:36 Chloride 100 mmol/L (95-114) 01/09/22 10:36 Carbon Dioxide 25.2 mmol/L (22.0-30.0) 01/09/22 10:36 Anion Gap 14.9 mEq/L (6.0-15.0) 01/09/22 10:36 BUN 21 mg/dL (9-23) 01/09/22 10:36 Creatinine 1.62 mg/dL (0.64-1.27) H 01/09/22 10:36 Est GFR ( Amer) 50 mL/Min 01/09/22 10:36 Est GFR (Non-Af Amer) 41 mL/Min 01/09/22 10:36 Glucose 99 mg/dL (70-100) 01/09/22 10:36 Calcium 9.2 mg/dL (8.2-10.2) 01/09/22 10:36 Total Creatine Kinase 231 U/L (22-269) 01/09/22 10:36 CK-MB (CK-2) 5.4 ng/mL (0.6-6.3) 01/09/22 10:36 CK-MB (CK-2) Rel Index 2.3 % (0.00-2.50) 01/09/22 10:36 Troponin I High Sens 101 pg/mL (0-20) H* 01/09/22 10:36 B-Natriuretic Peptide 1810.0 pg/mL (5-100) H 01/09/22 10:36 Urine Color Yellow (Yellow) 01/09/22 12:42 Urine Appearance Cloudy (Clear) A 01/09/22 12:42 Urine pH 5.5 (5.0-9.0) 01/09/22 12:42 Ur Specific [place] 1.018 (1.001-1.030) 01/09/22 12:42 Urine Protein Trace mg/dL (Negative) H 01/09/22 12:42 Urine Glucose (UA) Normal mg/dL (Normal) 01/09/22 12:42 Urine Ketones Trace (Negative) H 01/09/22 12:42 Urine Occult Blood Negative (Negative) 01/09/22 12:42 Urine Nitrite Negative (Negative) 01/09/22 12:42 Urine Bilirubin Negative (Negative) 01/09/22 12:42 Urine Urobilinogen Normal mg/dL (Normal) 01/09/22 12:42 Ur Leukocyte Esterase 2+ (Negative) H 01/09/22 12:42 Urine RBC 0-1 /HPF (0-4) 01/09/22 12:42 Urine WBC 5-9 /HPF (0-4) H 01/09/22 12:42 Ur Squamous Epith Cells 0-1 /HPF (0-2) 01/09/22 12:42 Urine Bacteria None seen (None Seen) 01/09/22 12:42 Hyaline Casts 0-8 /LPF (0-8) 01/09/22 12:42 Urine Yeast None seen /HPF (None Seen) 01/09/22 12:42 COVID-19 PCR Interp N/A 01/09/22 12:20 COVID-19 Clin Com Negative (Negative) 01/09/22 12:20 SARS Antigen (LFIA) Negative (Negative) 01/09/22 10:12 Microbiology Results Micro: Microbiology - Results from entire visit 01/09/22 10:12 Nasal SARS Antigen (LFIA) - Final A&P - Hospitalist Assessment/Plan (1) Acute on chronic congestive heart failure with left ventricular diastolic dysfunction: (2) Falls frequently: (3) Difficulty walking: (4) Bladder retention: (5) Constipation: (6) Acute respiratory failure with hypoxia: (7) Pleural effusion: (8) Atrial fibrillation: (9) Hypertension: (10) Anasarca: (11) Generalized weakness: (12) Impaired activities of daily living: (13) Sleep apnea: (14) Myxopapillary ependymoma: Plan Plan: Start IV Bumex 1 mg IV every 8 hours. Patient will hopefully be able to tolerate an external male genitalia type urinecollection device. Nursing staff can use a bladder scanner and monitor closely. May need to place an internal Chou. Treat constipation with milk of magnesia and lactulose now. Check renal ultrasound in the morning. Check echocardiogram. Check carotid Doppler ultrasound. For newly developed macrocytosis check B vitamins in the morning. Consult to neurology. Consult to physical therapy and Occupational Therapy. MRI of the lumbar spine. Documented By: Dharmesh Zavala DO [id number] Signed By: <Electronically signed by Dharmesh Zavala DO> 01/09/22 1530 [facility] Work Phone: Hisvrym of Present illness Narrative* The patient states he has been generally stable since the last visit. Comorbid Illnesses: hypertension. * Symptoms: denies chest pain at rest, denies exertional chest pain, denies dyspnea, denies fatigue, stable exercise intolerance, denies palpitations, denies edema, denies orthopnea, denies dizziness and denies orthostatic dizziness. * [facility] Work [facility]: History of Present illness Narrative* The patient states he has been generally stable since the last visit. Comorbid Illnesses: hypertension. * Symptoms: denies chest pain at rest, denies exertional chest pain, denies dyspnea, denies fatigue, stable exercise intolerance, denies palpitations, denies edema, denies orthopnea, denies dizziness and denies orthostatic dizziness. * Disease Monitoring: [facility] 250 DO Work Phone: Hisktod of Present illness Narrative* The patient presents with permanent atrial fibrillation. The treatment strategy for this patient israte control. He states his atrial fibrillation has been well controlled since the last visit. * Symptoms: denies palpitations, denies chest pain, improved exercise intolerance, denies dyspnea on exertion and resolved dizziness. Associated symptoms include no syncope. * Medications: the patient is adherent with his medication regimen. * Disease Management: the patient is not doing well with his goals. [facility]: Hisasrt of Present illness Narrative* The patient presents with permanent atrial fibrillation. The treatment strategy for this patient israte control. He states his atrial fibrillation has been well controlled since the last visit. * Symptoms: denies palpitations, denies chest pain, improved exercise intolerance, denies dyspnea on exertion and resolved dizziness. Associated symptoms include no syncope. * Medications: the patient is adherent with his medication regimen. * Disease Management: the patient is not doing well with his goals. [facility] 600 DO Work Phone: Hospital Discharge instructions Additional Instructions [facility] Facility to manage care: - Full code - PT/OT eval and treat - Routine vital signs - Bilateral arms, knees, and left medial foot skin tears- Clean with NS and pat dry. Apply Hydrogel to the wound bed. Top with Adaptic and 4x4 gauze. Secure with conform and paper tape. Bilateral heels and left foot- top with large band aid. Change daily and prn - Theraworx protect to bilateral groin fold redness. BID and prn - Daily weight at 0600 - Notify MD if unable to void, chou catheter removed on 01/16[facility] Work Phone: Progress note Author Dharmesh Zavala [facility] January 10, 2022 8:54pm Note Date/Time January 10, 2022 8 :54pm [facility] [address] [place] [address] Hospitalist Progress Note Signed Patient: Irineo Wallis Jr MR# : [id number] : 1940 Acct:[id number] Age/Sex: 81 / M Adm Date: 2 Loc: Room: 2I1504-1 Type: ADM IN Attending Dr: Dharmesh Zavala DO Copies to: ~ Date of Service: 01/10/2022 Subjective Subjective Narrative: When I entered the room the patient tells me that he is getting a pain in the thighs on the top of his legs. He does mention that the people in [place] told me that was due to the problem in my back. He says this has been getting a lotworse recently. At home it does not sound like he takes any specific medicationfor this. He does ask me for pain medication for this at this time. He cannot tell about improvement in edema in his legs, saying that he cannot feel them and cannot see them. His legs do look like they have had about a 20%improvement in edema. His weight has improved by about 2.5 kg. His serum creatinine actually improved a little bit by going down to 1.60 from 1.62. He denies any fevers or chills. No cough or expectoration any sputum. No headache. Today on telemetry the patient seem to have bradycardia with 3-second pauses. Cardiology with Dr. Drew saw the patient. Coreg and digoxin from home have been placed on hold. The external catheter that was used last night was not really functional. Is not in place anymore. He continues to have polyuria, and needs the help of two nursing staff to get him to stand up to void urine. Exam Physical Exam Vital Signs: Temp Pulse Resp BP Pulse Ox O2 Del Method O2 Flow Rate 97.7 F 76 16 113/73 97 Nasal Cannula 1 01/10/22 08:00 01/10/22 11:01 01/10/22 11:01 01/10/22 11:01 01/10/22 16:09 01/10/22 16:09 01/10/22 16:09 Narrative: Lungs: Lung sounds diminished, especially bases, and equal bilaterally. No wheezing. No crackles. Heart: Irregularly irregular heart rate. Rate is controlled. I do not hear anymurmurs, rubs, or gallops. Abdomen: Soft, normal bowel sounds, no rigidity, guarding, or acute peritoneal signs. Does have abdominal distention and some anasarca with pitting edema in his abdomen Extremities: About a 20% improvement of the edema. This is mostly in the area of the knees. Still with very tense edema below the knees all the way to the ankles bilaterally. Objective Lab Results CBC & Chem 7: 01/10/22 06:56 01/10/22 06:56 Microbiology Results Microbiology 01/09/22 12:42 Urine - Clean-Voided Midstream Urine Culture - Preliminary 15,000 colonies/ml mixed bacterial skin contaminants 1 Day Meds Allergies and Active Meds Allergies fentanyl Allergy (Verified 01/09/22 09:38) Dizziness indomethacin [From Indocin] Allergy (Verified 01/09/22 09:38) Dizziness Penicillins Allergy (Verified 01/09/22 09:38) Weakness zolpidem [From Ambien] Adverse Reaction (Verified 01/09/22 09:38) Confusion Active Meds: Active Medications Generic Name Dose Route Start Last Admin Trade Name Freq PRN Reason Stop Dose Admin Acetaminophen 650 mg 01/09/22 14:41 01/09/22 20:15 Acetaminophen 325 Mg Tablet PO 01/09/23 14:40 650 mg Q6HR PRN Administration Pain Scale 1 - 3 or fever Allopurinol 300 mg 01/10/22 09:00 01/10/22 08:58 Allopurinol 300 Mg Tablet PO 01/10/23 08:59 300 mg DAILY ANIBAL Administration Apixaban 5 mg 01/09/22 21:00 01/10/22 08:58 Apixaban 5 Mg Tablet PO 01/09/23 20:59 5 mg BID ANIBAL Administration Atorvastatin Calcium 40 mg 01/09/22 22:00 01/09/22 22:27 Atorvastatin 40 Mg Tablet PO 01/09/23 21:59 40 mg QHS ANIBAL Administration Bisacodyl 10 mg 01/09/22 14:41 Bisacodyl 10 Mg Supp.Rect DC 01/09/23 14:40 DAILY PRN Constipation Bisacodyl 10 mg 01/09/22 14:41 Bisacodyl 5 Mg Tablet.Dr PO 01/09/23 14:40 DAILY PRN Constipation Bumetanide 1 mg 01/09/22 15:30 01/10/22 14:42 Bumetanide 1 Mg/4 Ml Vial IV-PUSH 01/09/23 15:29 1 mg Q8H ANIBAL Administration Docusate Sodium 100 mg 01/09/22 21:00 01/10/22 08:58 Docusate 100 Mg Capsule PO 01/09/23 20:59 Not Given BID [facility] Fluticasone Propionate 1 spray 01/09/22 15:17 Fluticasone Propionate [place] [address] [place]/16 Gm Bottle NARES-BOTH 01/09/23 15:16 QHS PRN Nasal Congestion Hydromorphone HCl 0.5 mg 01/09/22 14:41 Hydromorphone 0.5 Mg/0.5 Ml Syringe IV-PUSH Q4H PRN Pain Scale 8 - 10 Magnesium Sulfate 2 gm in 50 mls @ 25 mls/hr 01/09/22 14:41 Magnesium Sulf 2gm-*Swfi* IV 01/09/23 14:40 DAILY PRN Magnesium Level < 1.5 Levothyroxine Sodium 150 mcg 01/10/22 06:30 01/10/22 06:44 Levothyroxine 150 Mcg Tablet PO 01/10/23 06:29 150 mcg DAILY@0630 ANIBAL Administration Magnesium Hydroxide 30 ml 01/09/22 14:41 Magnesium Hydroxide Susp 30 Ml Udc PO 01/09/23 14:40 BID PRN Constipation Magnesium Oxide 400 mg 01/10/22 09:00 01/10/22 08:58 Magnesium Oxide 400 Mg Tablet PO 01/10/23 08:59 400 mg DAILY ANIBAL Administration Nitroglycerin 0.4 mg 01/09/22 14:41 Nitroglycerin 0.4 Mg Tab.Subl SUBLINGUAL 01/09/23 14:40 Q5MIN.X3 PRN Chest Pain Non-Formulary Medication 3 mg 01/09/22 22:00 Eszopiclone PO 01/09/23 21:59 HS ANIBAL Nystatin 1 applic 01/09/22 22:00 01/10/22 14:42 Nystatin 100,000 Unit/Gram Powder 15 Gm Bottle TOPICAL 01/09/23 21:59 1 applic TID ANIBAL Administration Ondansetron HCl 4 mg 01/09/22 14:41 Ondansetron 4 Mg/2 Ml Vial IV-PUSH 01/09/23 14:40 Q8H PRN Nausea And Vomiting Oxycodone HCl 5 mg 01/09/22 14:41 01/09/22 16:38 Oxycodone Ir 5 Mg Tablet PO 5 mg Q4HR PRN Administration Pain Scale 4 - 7 Potassium Chloride 20 meq 01/09/22 14:41 Potassium Chloride Er 20 Meq Tab.Er.Prt PO 01/09/23 14:40 DAILY PRN Hypokalemia Potassium Chloride 40 meq 01/09/22 14:41 Potassium Chloride Er 20 Meq Tab.Er.Prt PO 01/09/23 14:40 DAILY PRN Hypokalemia Potassium Chloride 20 meq 01/09/22 21:00 01/09/22 20:16 Potassium Chloride Er 20 Meq Tab.Er.Prt PO 01/09/23 20:59 20 meq QPM ANIBAL Administration Sodium Chloride 0 ml 01/09/22 09:38 01/09/22 16:32 Sodium Chloride 0.9 % 10 Ml Syringe IV-PUSH 01/09/23 09:37 10 ml PRN PRN Administration Flush Sodium Chloride 0 ml 01/09/22 22:00 01/10/22 14:42 Sodium Chloride 0.9 % 10 Ml Syringe IV-PUSH 01/09/23 21:59 10 ml QSHIFT ANIBAL Administration A&P - Hospitalist Assessment/Plan (1) Acute on chronic congestive heart failure with left ventricular diastolic dysfunction: (2) Falls frequently: (3) Difficulty walking: (4) Bladder retention: (5) Constipation: (6) Acute respiratory failure with hypoxia: (7) Pleural effusion: (8) Atrial fibrillation: (9) Hypertension: (10) Anasarca: (11) Generalized weakness: (12) Impaired activities of daily living: (13) Sleep apnea: (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 Nursing staff can use a bladder scanner and monitor closely. May need to place an internal Chou. Continue bowel regimen Renal ultrasound did not show any hydroureter, and did not demonstrate an overlyfull bladder. Check echocardiogram. Check carotid Doppler ultrasound. MRI of the lumbar spine. Monitor telemetry for bradycardia and pauses with coreg and digoxin on hold at this time. Documented By: Dharmesh Zavala DO [id number] Signed By: <Electronically signed by Dharmesh Zavala DO> 01/10/222053 [facility] Work Phone: Progress note Author Mani Dickens [facility] January 11, 2022 5:02pm Note Date/Time January 11, 2022 8 :55am [facility] EN[facility] [address] [place] [address] Neurology Progress Note Signed Patient: Irineo Wallis Jr MR# : [id number] : 1940 Acct:[id number] Age/Sex: 81 / M Adm Date: 2 Loc: Room: [address] [place] [address] Type: ADM IN Attending Dr: Raji Ennis MD Copies to: ~ Date of Service: 01/11/2022 Subjective Subjective Narrative: Patient still has weakness in lower extremities. Having difficulty standing. He states he does not pass out when he falls. He does feel dizzy. Has chronic paresthesias which is not new or worse. Denies any incontinence of urine or stool. Has chronic back pain that does not radiate into his legs Review of Systems Cardiovascular Cardiovascular: Denies chest pain Respiratory Respiratory: Denies dyspnea Gastrointestinal Gastrointestinal: Denies nausea Musculoskeletal Musculoskeletal: Reports back pain, Reports muscle weakness and Denies radiatingpain into limb Neurologic Neurologic: Reports localized weakness (Bilateral lower extremity), Reports frequent falls, Reports paresthesias, Reports vertigo and Reports weakness Exam Physical Exam Vital Signs: Temp Pulse Resp BP Pulse Ox O2 Del Method O2 Flow Rate 98.0 F 76 17 145/77 H 92 L Room Air 1 01/11/22 08:28 01/11/22 08:28 01/11/22 08:28 01/11/22 08:28 01/11/22 08:28 01/11/22 08:28 01/11/22 04:50 Narrative: GENERAL EXAM: * Constitutional - Patient appears well nourished and well groomed * Patient is alert and oriented x3. NEURO EXAM: * Attention span/concentration normal * Speech is clear and fluent * Cranial nerve II. Vision is intact. KRISTA * Cranial nerve III, IV and . Extraocular muscles are intact. No nystagmus is appreciated * Cranial nerve V and VII. No facial asymmetry is appreciated. Temperature and pinprick is equal bilaterally * Cranial nerve VIII hearing is intact * Cranial nerve IX and X speech is clear fluent. Palate elevates symmetrically * Cranial nerve XI head turn side to side full range of motion. Shoulder shrug is equal bilaterally * Cranial nerve XII tongue is midline full range of motion MOTOR EXAM: * Strength is 5/5 in bilateral upper extremities. No pronator drift was appreciated * 4/5 in the left lower extremity and -5/5 in the right lower extremity * Muscle tone and bulk are normal * Gait not assessed SENSORY EXAM: * Temperature, pinprick, vibration are intact in all 4 extremities. Decreased sensation below the knee to all modalities. CEREBELLAR EXAM: * [id number] and alternating movements are intact and normal in bilateral upper extremities * [id number] and alternating movements are intact and normal in lower extremi ties REFLEX EXAM: * 1/4 throughout Objective Vital Signs Vital Signs: Vital Signs - 24 hr 01/10/22 08:58 01/10/22 11:01 01/10/22 16:09 Temperature Pulse Rate 77 76 Respiratory Rate 16 Blood Pressure 113/73 02 Sat by Pulse Oximetry 97 97 Oxygen Delivery Method Nasal Cannula Nasal Cannula Oxygen Flow Rate 1 1 01/10/22 19:45 01/10/22 19:45 01/11/22 00:00 Temperature 97.7 F 97.7 F Pulse Rate 81 68 Respiratory Rate 16 16 Blood Pressure 121/71 124/75 02 Sat by Pulse Oximetry 96 93 L Oxygen Delivery Method Room Air Nasal Cannula Room Air Oxygen Flow Rate 1 01/11/22 00:00 01/11/22 04:50 01/11/22 08:28 Temperature 98.3 F 98.0 F Pulse Rate 71 76 Respiratory Rate 16 17 Blood Pressure 101/62 145/77 H 02 Sat by Pulse Oximetry 95 92 L Oxygen Delivery Method Room Air Room Air Room Air Oxygen Flow Rate 1 Labs CBC & Chem 7: 01/11/22 06:32 01/11/22 06:32 Therapy Recommendations Therapy Recommendations: OT Recommendations OT Recommended Discharge [facility]dc Facility Location OT Recommended Services at Physical Therapy,Occupational Therapy Discharge PT Recommendations PT Recommended Discharge [facility] Facility Location PT Recommended Services at Physical Therapy,Occupational Therapy,27/09 Discharge Supervision Assessment/Plan (1) Falls frequently: Assessment/Problem Details: HPI: 81-year-old man with medical history of atrial fibrillation on Eliquis, congestive heart failure, obstructive sleep apnea which is untreated, and degenerative joint disease. 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 He presented to the emergency department on January 09, 2022 via EMS for evaluation of fall and injury. He got up to go to the bathroom in the middle the night with his walker and lost his balance andfell and was unable to get back up, being stuck on the floor for several hours. It sounds like there may have been some preceding dizziness that contributed. CT scan of the head and spine were unrevealing. Dr. Sesar Calvillo did the operation. They were told that when they did the resection the surgeon could not take all of it. He has subsequent spinal imaging that continues to show some evidence oftumor. He has a lot of low back pain. Some of those back pain seem to radiate into his upper thighs, which he describes as a dull ache. Chronic low back painand lower extremity weakness with progressive worsening is likely multifactorial. Symptoms into the legs and thighs may represent chronic lumbar radiculopathy. He has very little sensation in the feet, and no vibratory sensation, which likely affects his balance and suggest possible polyneuropathy. DATA REVIEW: MRI lumbar spine from July 08, 2004 shows a stable contrast-enhancing mass within the intradural space at the L2-3 level, and postsurgical changes with bilateral laminectomies at L4-5 and L5-S1 MRI lumbar spine from January 06, 2015 shows laminectomy defects at L2-L5 and redemonstration of intradural foci of enhancement in the lower lumbar spine and severe central spinal canal stenosis at L3-4 1. MRI lumbar spine with and without contrast. Consider neurosurgical evaluation based on MRI results 2. Neuropathy lab work-up: B12 was 458, folate 8.8, TSH 3.99. SPEP and immunofixation pending 3. Hemoglobin A1c pending 4. UTI. Urine culture negative at 1 day. Treatment per primary team 5. COVID-19 negative 6. PT/OT recommend SNF 7. We will follow I personally saw this patient on the day of the encounter, reviewed the history,performed the morrison elements of the exam, formulated the plan of care and confirmed the ENGINEERING SPECIALIST TECHNICIAN note The patient is an 81-year-old man with history of atrial fibrillation on Eliquisand significant history of myxopapillary ependymoma of the lumbar spine requiring resection in 1988. The patient states that he has had progressive weakness of his lower extremities over several months. He reports significant pain in the lumbar spine which is positional and has increased over the past several months and more pronounced in the last several weeks. The patient's last spinal imaging was in 2014 which did not reveal any evidence of progressionof underlying residual intradural enhancement and likely residual tumor. Possible etiologies include progression of patient's underlying tumor although has been stable for many years. I cannot exclude superimposed degenerative lumbar spine disease contributing to spinal canal stenosis or polyradiculopathy contributing to lower extremity weakness. I will obtain an MRI scan of the lumbar spine to assess for any structural lesions which may be contributing to the patient's symptoms. We will have physical therapy, Occupational Therapy, evaluate the patient for therapy and rehab needs. We will follow the patient clinically and make further recommendations based upon clinical course and the above evaluation. Code(s): R29.6 - Repeated falls Status: Acute (2) Altered mental status: Code(s): R41.82 - Altered mental status, unspecified Status: Acute Documented By: MEI Tristan [id number] Signed By: <Electronically signed by MEI Knight> 01/11/22 1426 <Electronically signed by MD Mani Dickens> 01/11/22 1701 [facility] Work Phone: Progress note Author W Be Mcintyre [facility] January 11, 2022 2:09pm Note Date/Time January 11, 2022 2 :09pm [facility] EN[facility] [address] [place] [address] Cardiology Progress Note Signed Patient: Irineo Wallis Jr MR# : [id number] : 1940 Acct:[id number] Age/Sex: 81 / M Adm Date: 2 Loc: 3T Room: [address] [place] [address] Type: ADM IN Attending Dr: Raji Ennis MD Copies to: ~ Date of Service: 01/11/2022 Subjective Principal diagnosis: Atrial fibrillation, bradycardia, diastolic CHF Interval history: Overall heart rhythm is greatly improved heart rates now up to 78. Patient withimproved edema with diuresis. Holding carvedilol and digoxin have clearly helped his bradycardia. Case was also discussed with his daughter as well as with the patient. There is no indication for pacemaker at this time I would recommend continued diuresis over today and tomorrow with intentions fordischarge within the next 24+ hours should he continue to demonstrate excellent diuresis, reduction in edema, and no further prolonged pauses Exam Physical Exam Vital Signs: Temp Pulse Resp BP Pulse Ox O2 Del Method O2 Flow Rate 97.2 F L 78 18 105/64 95 Room Air 1 01/11/22 11:16 01/11/22 11:16 01/11/22 11:16 01/11/22 11:16 01/11/22 11:16 01/11/22 11:16 01/11/22 04:50 Const General: cooperative, comfortable and no acute distress Nutritional Appearance: average body habitus and edematous Orientation: alert, awake and oriented x3 HEENT Head: normal to inspection Resp Effort & Inspection: normal respiratory effort and able to speak in complete sentences Auscultation: clear to auscultation bilaterally Cardio Rhythm: abnormal rhythm Heart Sounds: S1 normal and S2 normal GI Palpation: soft Neuro General: patient alert, patient awake and patient oriented x3 Cognition: normal cognition Speech: speech normal Extrem General: edema Objective Labs CBC & Chem 7: 01/11/22 06:32 01/11/22 06:32 Labs: Laboratory Results - last 24 hr 01/11/22 01/11/22 06:32 06:32 Corrected WBC 8.5 Uncorrected WBC Count 8.5 RBC 3.78 L Hgb 12.7 L Hct 38.1 L MCV 100.6 MCH 33.4 MCHC 33.3 RDW 15.5 H Plt Count 177 MPV 8.8 Neut % (Auto) 73.8 Lymph % (Auto) 13.7 [place] % (Auto) 9.6 Eos % (Auto) 2.2 Baso % (Auto) 0.7 Neut # (Auto) 6.3 Lymph # (Auto) 1.2 [place] # (Auto) 0.8 Eos # (Auto) 0.2 Baso # (Auto) 0.1 Nucleated RBC % (auto) 0.0 PHA Creatinine Clear 42.37 Sodium 134 L Potassium 3.4 L Chloride 98 Carbon Dioxide 28.8 Anion Gap 10.6 BUN 24 H Creatinine 1.49 H Est GFR ( Amer) 55 Est GFR (Non-Af Amer) 45 Glucose 90 Calcium 8.7 A&P - Cardiology (1) HFrEF (heart failure with reduced ejection fraction): Assessment/Problem Details: Appears to be for the most part compensated. We will repeat echocardiogram to reassess ejection fraction especially in view of the lower extremity edema despite medical therapy. Code(s): I50.20 - Unspecified systolic (congestive) heart failure Status: Acute Plan: Continue to hold carvedilol and digoxin No need for pacemaker (2) Atrial fibrillation: Code(s): I48.91 - Unspecified atrial fibrillation Status: Chronic Plan: We will potentially reinitiate low-dose carvedilol in the future (3) Bradycardia: Assessment/Problem Details: Caused by atrial fibrillation with slow ventricular response on 2 agents contributing to bradycardia that is digoxin and Coreg. Code(s): R00.1 - Bradycardia, unspecified Status: Acute Plan: Hold off on digoxin and Coreg for today and tomorrow, reassess ejection fractionby echo tomorrow Documented By: Bhupinder Mcintyre DO 01/11/22 1405 Signed By: <Electronically signed by Bhupinder Mcintyre DO> 01/11/22 1409 [facility] Work Phone: Progress note Author Raji [facility] January 11, 2022 5:04pm Note Date/Time January 11, 2022 5 :04pm [facility] EN[facility] [address] [place] [address] Hospitalist Progress Note Signed Patient: Irineo Wallis Jr MR# : [id number] : 1940 Acct:[id number] Age/Sex: 81 / M Adm Date: 2 Loc: 3T Room: [address] [place] [address] Type: ADM IN Attending Dr: Raji Ennis MD Copies to: ~ Date of Service: 01/11/2022 Subjective Subjective Narrative: Patient seen and examined. Patient is comfortably sitting in chair when I walked into the room. States that he could not sleep last night as he has to wake up to pee multiple times. Per RN patient did not take his Bumex today in the morning as he does not like to urinate frequently. He denies any other symptoms otherwise Exam Physical Exam Vital Signs: Temp Pulse Resp BP Pulse Ox O2 Del Method O2 Flow Rate 97.8 F 67 16 144/88 H 95 Room Air 1 01/11/22 15:22 01/11/22 15:22 01/11/22 15:22 01/11/22 15:22 01/11/22 15:22 01/11/22 16:00 01/11/22 04:50 Narrative: General: Awake, alert, oriented x3 not in acute distress HEENT: Normocephalic, atraumatic, PERRLA, normal mucosa Cardiovascular: Irregular rate and rhythm , S1-S2 heard, no murmurs or gallops Lungs: No wheezing or rhonchi heard Gastrointestinal: Soft, nontender, bowel sounds heard Extremities: 2+ edema in legs bilaterally Neurological: no sensory or motor deficit Skin: Dry and warm, no rashes or lesions Psych: Normal mood and affect Objective Lab Results CBC & Chem 7: 01/11/22 06:32 01/11/22 06:32 Microbiology Results Microbiology 01/09/22 12:42 Urine - Clean-Voided Midstream Urine Culture - Final 30,000 colonies/ml mixed bacterial skin contaminants 2 Days Meds Allergies and Active Meds Allergies fentanyl Allergy (Verified 01/09/22 09:38) Dizziness indomethacin [From Indocin] Allergy (Verified 01/09/22 09:38) Dizziness Penicillins Allergy (Verified 01/09/22 09:38) Weakness zolpidem [From Ambien] Adverse Reaction (Verified 01/09/22 09:38) Confusion Active Meds: Active Medications Generic Name Dose Route Start Last Admin Trade Name Lexq PRN Reason Stop Dose Admin Acetaminophen 650 mg 01/09/22 14:41 01/09/22 20:15 Acetaminophen 325 Mg Tablet PO 01/09/23 14:40 650 mg Q6HR PRN Administration Pain Scale 1 - 3 or fever Allopurinol 300 mg 01/10/22 09:00 01/11/22 08:31 Allopurinol 300 Mg Tablet PO 01/10/23 08:59 300 mg DAILY ANIBAL Administration Apixaban 5 mg 01/09/22 21:00 01/11/22 08:31 Apixaban 5 Mg Tablet PO 01/09/23 20:59 5 mg BID ANIBAL Administration Atorvastatin Calcium 40 mg 01/09/22 22:00 01/10/22 21:12 Atorvastatin 40 Mg Tablet PO 01/09/23 21:59 40 mg QHS ANIBAL Administration Bisacodyl 10 mg 01/09/22 14:41 Bisacodyl 10 Mg Supp.Rect DC 01/09/23 14:40 DAILY PRN Constipation Bisacodyl 10 mg 01/09/22 14:41 Bisacodyl 5 Mg Tablet.Dr PO 01/09/23 14:40 DAILY PRN Constipation Bumetanide 1 mg 01/09/22 15:30 01/11/22 15:23 Bumetanide 1 Mg/4 Ml Vial IV-PUSH 01/09/23 15:29 1 mg Q8H ANIBAL Administration Docusate Sodium 100 mg 01/09/22 21:00 01/11/22 08:31 Docusate 100 Mg Capsule PO 01/09/23 20:59 100 mg BID ANIBAL Administration Fluticasone Propionate 1 spray 01/09/22 15:17 Fluticasone Propionate [place] [address] [place]/16 Gm Bottle NARES-BOTH 01/09/23 15:16 QHS PRN Nasal Congestion Hydromorphone HCl 0.5 mg 01/09/22 14:41 Hydromorphone 0.5 Mg/0.5 Ml Syringe IV-PUSH Q4H PRN Pain Scale 8 - 10 Magnesium Sulfate 2 gm in 50 mls @ 25 mls/hr 01/09/22 14:41 Magnesium Sulf 2gm-*Swfi* IV 01/09/23 14:40 DAILY PRN Magnesium Level < 1.5 Levothyroxine Sodium 150 mcg 01/10/22 06:30 01/11/22 07:27 Levothyroxine 150 Mcg Tablet PO 01/10/23 06:29 150 mcg DAILY@0630 ANIBAL Administration Magnesium Hydroxide 30 ml 01/09/22 14:41 Magnesium Hydroxide Susp 30 Ml Udc PO 01/09/23 14:40 BID PRN Constipation Magnesium Oxide 400 mg 01/10/22 09:00 01/11/22 08:31 Magnesium Oxide 400 Mg Tablet PO 01/10/23 08:59 400 mg DAILY ANIBAL Administration Nitroglycerin 0.4 mg 01/09/22 14:41 Nitroglycerin 0.4 Mg Tab.Subl SUBLINGUAL 01/09/23 14:40 Q5MIN.X3 PRN Chest Pain Pom Eszopiclone 3 Mg 3 mg 01/11/22 22:00 Tablet PO 01/11/23 21:59 HS ANIBAL Nystatin 1 applic 01/09/22 22:00 01/11/22 15:24 Nystatin 100,000 Unit/Gram Powder 15 Gm Bottle TOPICAL 01/09/23 21:59 1 applic TID ANIBAL Administration Ondansetron HCl 4 mg 01/09/22 14:41 Ondansetron 4 Mg/2 Ml Vial IV-PUSH 01/09/23 14:40 Q8H PRN Nausea And Vomiting Oxycodone HCl 5 mg 01/09/22 14:41 01/11/22 15:23 Oxycodone Ir 5 Mg Tablet PO 5 mg Q4HR PRN Administration Pain Scale 4 - 7 Potassium Chloride 20 meq 01/09/22 14:41 01/11/22 08:43 Potassium Chloride Er 20 Meq Tab.Er.Prt PO 01/09/23 14:40 20 meq DAILY PRN Administration Hypokalemia Potassium Chloride 40 meq 01/09/22 14:41 Potassium Chloride Er 20 Meq Tab.Er.Prt PO 01/09/23 14:40 DAILY PRN Hypokalemia Potassium Chloride 20 meq 01/09/22 21:00 01/10/22 21:12 Potassium Chloride Er 20 Meq Tab.Er.Prt PO 01/09/23 20:59 20 meq QPM ANIBAL Administration Sodium Chloride 0 ml 01/09/22 09:38 01/10/22 23:31 Sodium Chloride 0.9 % 10 Ml Syringe IV-PUSH 01/09/23 09:37 10 ml PRN PRN Administration Flush Sodium Chloride 0 ml 01/09/22 22:00 01/11/22 15:23 Sodium Chloride 0.9 % 10 Ml Syringe IV-PUSH 01/09/23 21:59 10 ml QSHIFT ANIBAL Administration A&P - Hospitalist Assessment/Plan (1) Acute on chronic congestive heart failure with left ventricular diastolic dysfunction: (2) Falls frequently: (3) Difficulty walking: (4) Bladder retention: (5) Constipation: (6) Acute respiratory failure with hypoxia: (7) Pleural effusion: (8) Atrial fibrillation: (9) Hypertension: (10) Anasarca: (11) Generalized weakness: (12) Impaired activities of daily living: (13) Sleep apnea: (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 Offered him Chou catheter and he is agreeable Cardiology on board, digoxin and Coreg has been on hold with no signs of bradycardia. Plan to reinitiate Coreg in 24 to 48 hours Echocardiogram ordered Carotid Doppler showed no hemodynamically significant stenosis in either extracranial ICA, both vertebral arteries are patent with antegrade flow MRI of the lumbar spine pending Urine culture showed bacterial skin contaminants Continue Bumex 1 mg IV every 8 hours. Monitor electrolytes Renal ultrasound did not show any hydroureter, and did not demonstrate an overlyfull bladder. Fall precautions PT/OT DVT prophylaxis Documented By: Raji Ennis MD 01/11/22 3460 Signed By: <Electronically signed by Raji Ennis MD> 01/11/22 4598 [facility] Work Phone: Progress note Author Mani Dickens [facility] January 12, 2022 4:10pm Note Date/Time January 12, 2022 8 :19am [facility] [address] [place] [address] Neurology Progress Note Signed Patient: Irineo Wallis Jr MR# : [id number] : 1940 Acct:[id number] Age/Sex: 81 / M Adm Date: 2 Loc: Room: [address] [place] [address] Type: ADM IN Attending Dr: Raji Ennis MD Copies to: ~ Date of Service: 01/12/2022 Subjective Subjective Narrative: Patient is very drowsy. He did receive Dilaudid this morning for a 10 out of 10pain. He is arousable and follows directions. He is oriented to person only. Does not appear to be in distress. Review of Systems Review of Systems Other (Patient is very drowsy. Does not appear to be in distress. He does wakeup and follow directions.) Exam Physical Exam Vital Signs: Temp Pulse Resp BP Pulse Ox O2 Del Method O2 Flow Rate 97.8 F 69 16 146/69 H 94 L Room Air 1 01/12/22 04:00 01/12/22 04:00 01/12/22 04:00 01/12/22 04:00 01/12/22 04:00 01/12/22 08:00 01/11/22 04:50 Narrative: GENERAL EXAM: * Constitutional - Patient appears well nourished and well groomed * Patient is alert and oriented to person only. * Apical is regular rate. No murmur. * Lung sounds are diminished but clear NEURO EXAM: * Attention span/concentration impaired, drowsy * Speech is minimal but clear * Cranial nerve II. Vision is intact. KRISTA * Cranial nerve III, IV and . EOM grossly intact. No obvious nystagmus * Cranial nerve V and VII. No facial asymmetry is appreciated. Temperature and touch is intact * Cranial nerve VIII hearing is intact * Cranial nerve IX and X speech is minimal but clear * Cranial nerve XI head turn side to side full range of motion. Shoulder shrug is equal bilaterally * Cranial nerve XII tongue is midline full range of motion MOTOR EXAM: * Strength is 5/5 in bilateral upper extremities. No pronator drift was appreciated * 4/5 in the left lower extremity and -5/5 in the right lower extremity * Muscle tone and bulk are normal * Gait not assessed SENSORY EXAM: * Temperature and touch are intact in all 4 extremities. Decreased sensation below the knee to all modalities. CEREBELLAR EXAM: * Alternating movements are intact and normal in bilateral upper extremities * Alternating movements are intact and normal in lower extremities * Unable to test finger-nose or [id number] due to drowsiness REFLEX EXAM: * 1/4 throughout Objective Vital Signs Vital Signs: Vital Signs - 24 hr 01/11/22 08:28 01/11/22 08:28 01/11/22 11:16 Temperature 98.0 F 97.2 F L Pulse Rate 76 78 Respiratory Rate 17 18 Blood Pressure 145/77 H 105/64 02 Sat by Pulse Oximetry 92 L 95 Oxygen Delivery Method Room Air Room Air Room Air 01/11/22 15:22 01/11/22 16:00 01/11/22 20:00 Temperature 97.8 F 97.8 F Pulse Rate 67 58 L Respiratory Rate 16 16 Blood Pressure 144/88 H 135/64 02 Sat by Pulse Oximetry 95 98 Oxygen Delivery Method Room Air Room Air Room Air 01/11/22 20:00 01/12/22 00:00 01/12/22 00:00 Temperature 97.8 F Pulse Rate 64 Respiratory Rate 16 Blood Pressure 135/64 02 Sat by Pulse Oximetry 98 Oxygen Delivery Method Room Air Room Air Room Air 01/12/22 04:00 01/12/22 08:00 Temperature 97.8 F Pulse Rate 69 Respiratory Rate 16 Blood Pressure 146/69 H 02 Sat by Pulse Oximetry 94 L Oxygen Delivery Method Room Air Room Air Labs CBC & Chem 7: 01/12/22 06:42 01/12/22 06:42 Therapy Recommendations Therapy Recommendations: OT Recommendations OT Recommended Discharge [facility]dc Facility Location OT Recommended Services at Physical Therapy,Occupational Therapy Discharge PT Recommendations PT Recommended Discharge [facility]dc Facility Location PT Recommended Services at Physical Therapy,Occupational Therapy,27/09 Discharge Supervision Assessment/Plan (1) Altered mental status: Code(s): R41.82 - Altered mental status, unspecified Status: Acute (2) Falls frequently: Assessment/Problem Details: 81-year-old man with medical history of atrial fibrillation on Eliquis, congestive heart failure, obstructive sleep apnea which is untreated, and degenerative joint disease. 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 He presented to the emergency department on January 09, 2022 via EMS for evaluation of fall and injury. He got up to go to the bathroom in the middle the night with his walker and lost his balance andfell and was unable to get back up, being stuck on the floor for several hours. It sounds like there may have been some preceding dizziness that contributed. CT scan of the head and spine were unrevealing. Dr. Sesar Calvillo did the operation. They were told that when they did the resection the surgeon could not take all of it. He has subsequent spinal imaging that continues to show some evidence oftumor. He has a lot of low back pain. Some of those back pain seem to radiate into his upper thighs, which he describes as a dull ache. Chronic low back painand lower extremity weakness with progressive worsening is likely multifactorial. Symptoms into the legs and thighs may represent chronic lumbar radiculopathy. He has very little sensation in the feet, and no vibratory sensation, which likely affects his balance and suggest possible polyneuropathy. DATA REVIEW: MRI lumbar spine from July 08, 2004 shows a stable contrast-enhancing mass within the intradural space at the L2-3 level, and postsurgical changes with bilateral laminectomies at L4-5 and L5-S1 MRI lumbar spine from January 06, 2015 shows laminectomy defects at L2-L5 and redemonstration of intradural foci of enhancement in the lower lumbar spine and severe central spinal canal stenosis at L3-4 Interval history: Patient received Dilaudid morning and is very drowsy. He is able to be aroused and he is following directions. He is oriented to person only. Does not appear to be in distress. 1. MRI lumbar spine with and without contrast. Consider neurosurgical evaluation based on MRI results 2. Neuropathy lab work-up: B12 was 458, folate 8.8, TSH 3.99. SPEP and immunofixation pending 3. Hemoglobin A1c pending 4. UTI. Urine culture negative at 1 day. Treatment per primary team 5. COVID-19 negative 6. PT/OT recommend SNF 7. We will follow I personally saw this patient on the day of the encounter, reviewed the history,performed the morrison elements of the exam, formulated the plan of care and confirmed the ENGINEERING SPECIALIST TECHNICIAN note The patient is an 81-year-old man with history of cognitive impairment, atrial fibrillation on chronic anticoagulation, obstructive sleep apnea, and degenerative joint disease. 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 The patient has had increased difficulty with ambulating over the past several weeks. Patient had a CT scan of the brainwhich did not reveal evidence of an acute or chronic intracranial process which may be contributing to his symptoms. I cannot exclude recurrence of ependymoma in the lumbar spine, degenerative lumbar spine disease with lumbar canal stenosis, or polyradiculopathy contributing to lower extremity weakness. The patient has developed some confusion and has likely urinary tract infection and superimposed metabolic encephalopathy on top of baseline cognitive impairment. I will obtain an MRI of the lumbar spine and continue to make further recommendations based upon these results and the patient's clinical course. I discussed with the patient's daughter the possible diagnosis, evaluation, and treatment options. Code(s): R29.6 - Repeated falls Status: Acute Documented By: MEI Tristan [id number] Signed By: <Electronically signed by MEI Knight> 01/12/22 1058 <Electronically signed by MD Mani Dickens> 01/12/22 1610 [facility] Work Phone: Progress note Author Raji Ennis [facility] January 12, 2022 4:38pm Note Date/Time January 12, 2022 4 :38pm [facility] [address] [place] [address] Hospitalist Progress Note Signed Patient: Irineo Wallis Jr MR# : [id number] : 1940 Acct:[id number] Age/Sex: 81 / M Adm Date: 2 Loc: Room: [address] [place] [address] Type: ADM IN Attending Dr: Raji Ennis MD Copies to: ~ Date of Service: 01/12/2022 Subjective Subjective Narrative: Patient seen and examined. Patient appears slightly lethargic and is confused. He could tell me his name but could not tell me the place or time. Per RN patient was awake, alert and oriented early in the morning but appeared confusedafter receiving Dilaudid for lower back pain. He also had a temperature of 100.6 which is new. Patient does not endorse worsening of cough, shortness of breath, chest pain, nausea, vomiting, abdominal pain. Exam Physical Exam Vital Signs: Temp Pulse Resp BP Pulse Ox O2 Del Method O2 Flow Rate 98.8 F 51 L 18 118/67 93 L Room Air 1 01/12/22 15:55 01/12/22 15:15 01/12/22 15:15 01/12/22 15:15 01/12/22 15:15 01/12/22 16:00 01/11/22 04:50 Narrative: General: Lethargic but is easily arousable and is oriented to person only HEENT: Normocephalic, atraumatic, PERRLA, normal mucosa Cardiovascular: Irregular rate and rhythm , S1-S2 heard, no murmurs or gallops Lungs: No wheezing or rhonchi heard Gastrointestinal: Soft, nontender, bowel sounds heard Extremities: 1+ edema in legs bilaterally Neurological: no sensory or motor deficit Skin: Dry and warm, no rashes or lesions Psych: Normal mood and affect Objective Lab Results CBC & Chem 7: 01/12/22 06:42 01/12/22 06:42 Meds Allergies and Active Meds Allergies fentanyl Allergy (Verified 01/09/22 09:38) Dizziness indomethacin [From Indocin] Allergy (Verified 01/09/22 09:38) Dizziness Penicillins Allergy (Verified 01/09/22 09:38) Weakness zolpidem [From Ambien] Adverse Reaction (Verified 01/09/22 09:38) Confusion Active Meds: Active Medications Generic Name Dose Route Start Last Admin Trade Name Freq PRN Reason Stop Dose Admin Acetaminophen 650 mg 01/09/22 14:41 01/12/22 11:38 Acetaminophen 325 Mg Tablet PO 01/09/23 14:40 650 mg Q6HR PRN Administration Pain Scale 1 - 3 or fever Allopurinol 300 mg 01/10/22 09:00 01/12/22 08:22 Allopurinol 300 Mg Tablet PO 01/10/23 08:59 300 mg DAILY ANIBAL Administration Apixaban 5 mg 01/09/22 21:00 01/12/22 08:22 Apixaban 5 Mg Tablet PO 01/09/23 20:59 5 mg BID ANIBAL Administration Atorvastatin Calcium 40 mg 01/09/22 22:00 01/11/22 21:53 Atorvastatin 40 Mg Tablet PO 01/09/23 21:59 40 mg QHS ANIBAL Administration Bisacodyl 10 mg 01/09/22 14:41 Bisacodyl 10 Mg Supp.Rect DC 01/09/23 14:40 DAILY PRN Constipation Bisacodyl 10 mg 01/09/22 14:41 01/12/22 08:22 Bisacodyl 5 Mg Tablet.Dr PO 01/09/23 14:40 10 mg DAILY PRN Administration Constipation Bumetanide 1 mg 01/09/22 15:30 01/12/22 14:53 Bumetanide 1 Mg/4 Ml Vial IV-PUSH 01/09/23 15:29 1 mg Q8H ANIBAL Administration Docusate Sodium 100 mg 01/09/22 21:00 01/12/22 08:22 Docusate 100 Mg Capsule PO 01/09/23 20:59 100 mg BID ANIBAL Administration Fluticasone Propionate 1 spray 01/09/22 15:17 Fluticasone Propionate [place] [address] [place]/16 Gm Bottle NARES-BOTH 01/09/23 15:16 QHS PRN Nasal Congestion Magnesium Sulfate 2 gm in 50 mls @ 25 mls/hr 01/09/22 14:41 Magnesium Sulf 2gm-*Swfi* IV 01/09/23 14:40 DAILY PRN Magnesium Level < 1.5 Vancomycin HCl 1.5 gm/ 530 mls @ 353.333 mls/hr 01/12/22 15:30 01/12/22 15:50 Dextrose IV 01/12/22 16:59 353.33 mls/hr ONCE ONE Administration Cefepime HCl 2 gm in 50 mls @ 100 mls/hr 01/12/22 15:06 01/12/22 15:50 Maxipime IV Infused Q12H ANIBAL Infusion Levothyroxine Sodium 150 mcg 01/10/22 06:30 01/12/22 05:47 Levothyroxine 150 Mcg Tablet PO 01/10/23 06:29 150 mcg DAILY@0630 ANIBAL Administration Magnesium Hydroxide 30 ml 01/09/22 14:41 Magnesium Hydroxide Susp 30 Ml Udc PO 01/09/23 14:40 BID PRN Constipation Magnesium Oxide 400 mg 01/10/22 09:00 01/12/22 08:22 Magnesium Oxide 400 Mg Tablet PO 01/10/23 08:59 400 mg DAILY ANIBAL Administration Nitroglycerin 0.4 mg 01/09/22 14:41 Nitroglycerin 0.4 Mg Tab.Subl SUBLINGUAL 01/09/23 14:40 Q5MIN.X3 PRN Chest Pain Pom Eszopiclone 3 Mg 3 mg 01/11/22 22:00 01/11/22 21:54 Tablet PO 01/11/23 21:59 3 mg HS ANIBAL Administration Nystatin 1 applic 01/09/22 22:00 01/12/22 13:35 Nystatin 100,000 Unit/Gram Powder 15 Gm Bottle TOPICAL 01/09/23 21:59 1 applic TID ANIBAL Administration Ondansetron HCl 4 mg 01/09/22 14:41 Ondansetron 4 Mg/2 Ml Vial IV-PUSH 01/09/23 14:40 Q8H PRN Nausea And Vomiting Oxycodone HCl 5 mg 01/09/22 14:41 01/12/22 05:46 Oxycodone Ir 5 Mg Tablet PO 5 mg Q4HR PRN Administration Pain Scale 4 - 7 Potassium Chloride 20 meq 01/09/22 14:41 01/11/22 08:43 Potassium Chloride Er 20 Meq Tab.Er.Prt PO 01/09/23 14:40 20 meq DAILY PRN Administration Hypokalemia Potassium Chloride 40 meq 01/09/22 14:41 Potassium Chloride Er 20 Meq Tab.Er.Prt PO 01/09/23 14:40 DAILY PRN Hypokalemia Potassium Chloride 20 meq 01/09/22 21:00 01/11/22 21:53 Potassium Chloride Er 20 Meq Tab.Er.Prt PO 01/09/23 20:59 20 meq QPM ANIBAL Administration Sodium Chloride 0 ml 01/09/22 09:38 01/10/22 23:31 Sodium Chloride 0.9 % 10 Ml Syringe IV-PUSH 01/09/23 09:37 10 ml PRN PRN Administration Flush Sodium Chloride 0 ml 01/09/22 22:00 01/12/22 13:35 Sodium Chloride 0.9 % 10 Ml Syringe IV-PUSH 01/09/23 21:59 10 ml QSHIFT ANIBAL Administration Vancomycin HCl 1 each 01/12/22 14:20 Vancomycin - Pharmacy Dosing 1 Each Miscell IV ONCE PRN ZZ.Pharmacy Consult Protocol A&P - Hospitalist Assessment/Plan (1) Acute on chronic congestive heart failure with left ventricular diastolic dysfunction: (2) Falls frequently: (3) Difficulty walking: (4) Bladder retention: (5) Constipation: (6) Acute respiratory failure with hypoxia: (7) Pleural effusion: (8) Atrial fibrillation: (9) Hypertension: (10) Anasarca: (11) Generalized weakness: (12) Impaired activities of daily living: (13) Sleep apnea: (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 Urine culture done couple days ago showed bacterial skin contaminants CRP 8.4. Etiology for confusion and fever is unclear at this time. Will obtainblood cultures and start prophylactic antibiotics and consult ID Cardiology on board, digoxin and Coreg has been on hold with no signs of bradycardia. Plan to reinitiate Coreg in 24 to 48 hours Echocardiogram ordered Carotid Doppler showed no hemodynamically significant stenosis in either extracranial ICA, both vertebral arteries are patent with antegrade flow MRI of the lumbar spine pending Has good urine output with aggressive IV diuresis. We will decrease frequency of Bumex to twice daily Monitor electrolytes Fall precautions PT/OT DVT prophylaxis Documented By: Raji Ennis MD 01/12/22 1631 Signed By: <Electronically signed by Raji Ennis MD> 01/12/22 1638 [facility] Work Phone: Progress note Author W Be [facility] January 12, 2022 6:11pm Note Date/Time January 12, 2022 6 :11pm [facility] EN[facility] [address] [place] [address] Cardiology Progress Note Signed Patient: Irineo Wallis Jr MR# : [id number] : 1940 Acct:[id number] Age/Sex: 81 / M Adm Date: 2 Loc: Room: [address] [place] [address] Type: ADM IN Attending Dr: Raji Enins MD Copies to: ~ Date of Service: 01/12/2022 Subjective Principal diagnosis: Atrial fibrillation, bradycardia, diastolic CHF Interval history: Mr. Wallis endorses improved shortness of breath today. Edema in b/l LE continues to diminish. Patient continues to remain in normal rate without episode of bradycardia with heart rate ranging 67-58 in the past 24 hours. Saturating well on room air. Patient denies acute chest pain, nausea, vomiting, acute neurologic deficit. Attending note: I have seen this patient in conjunction with medical student Ramon Luis and concur with his examination and assessment. Bradycardia is resolved, edema is resolving very nicely with good diuresis. Neurology consultation reviewed. We will continue with anticoagulation, rate control, long-term diuretics for diastolic heart failure/edema, follow-up with nurse practitioner in the next 4 to 6 weeks. Exam Physical Exam Vital Signs: Temp Pulse Resp BP Pulse Ox O2 Del Method O2 Flow Rate 98.8 F 51 L 18 118/67 93 L Room Air 1 01/12/22 15:55 01/12/22 15:15 01/12/22 15:15 01/12/22 15:15 01/12/22 15:15 01/12/22 16:00 01/11/22 04:50 Narrative: Const General: cooperative, comfortable and no acute distress Nutritional Appearance: average body habitus and edematous Orientation: alert, awake and oriented x3 HEENT Head: normal to inspection Resp Effort & Inspection: normal respiratory effort and able to speak in complete sentences Auscultation: clear to auscultation bilaterally Cardio Rhythm: abnormal rhythm Heart Sounds: S1 normal and S2 normal GI Palpation: soft Neuro General: patient alert, patient awake and patient oriented x3 Cognition: normal cognition Speech: speech normal Extrem General: improving edema Const General: cooperative, comfortable and no acute distress Nutritional Appearance: average body habitus and edematous Orientation: alert, awake and oriented x3 HEENT Head: normal to inspection Resp Effort & Inspection: normal respiratory effort and able to speak in complete sentences Auscultation: clear to auscultation bilaterally Cardio Rhythm: abnormal rhythm Heart Sounds: S1 normal and S2 normal GI Palpation: soft Neuro General: patient alert, patient awake and patient oriented x3 Cognition: normal cognition Speech: speech normal Extrem General: edema Objective Labs CBC & Chem 7: 01/12/22 06:42 01/12/22 06:42 Labs: Laboratory Results - last 24 hr 01/11/22 01/12/22 01/12/22 06:32 06:42 06:42 Corrected WBC 10.1 Uncorrected WBC Count 10.1 RBC 3.85 L Hgb 12.9 L Hct 38.8 MCV 100.8 MCH 33.6 MCHC 33.3 RDW 15.5 H Plt Count 214 MPV 8.8 Neut % (Auto) 76.3 Lymph % (Auto) 12.2 [place] % (Auto) 9.1 Eos % (Auto) 1.9 Baso % (Auto) 0.5 Neut # (Auto) 7.7 Lymph # (Auto) 1.2 [place] # (Auto) 0.9 H Eos # (Auto) 0.2 Baso # (Auto) 0.1 Nucleated RBC % (auto) 0.1 PHA Creatinine Clear 40.96 Sodium 132 L Potassium 3.8 Chloride 94 L Carbon Dioxide 31.4 H Anion Gap 10.4 BUN 22 Creatinine 1.53 H Est GFR ( Amer) 53 Est GFR (Non-Af Amer) 44 Glucose 99 Calcium 8.9 C-Reactive Prot, Quant Serum Total Protein 5.3 L Albumin (Send Out) 2.9 Globulin (PEP) 2.4 Albumin/Globulin (PEP) 1.2 Ifipo-1-Uivpvznpo 0.4 Oihxx-4-Uvegaspbm 0.7 Beta Globulins 0.6 L Gamma Globulins 0.8 M-Franky Not observed PEP Note IgG 816 IgA 171 IgM 105 Serum Immunofixation 01/12/22 06:42 Corrected WBC Uncorrected WBC Count RBC Hgb Hct MCV MCH MCHC RDW Plt Count MPV Neut % (Auto) Lymph % (Auto) [place] % (Auto) Eos % (Auto) Baso % (Auto) Neut # (Auto) Lymph # (Auto) [place] # (Auto) Eos # (Auto) Baso # (Auto) Nucleated RBC % (auto) PHA Creatinine Clear Sodium Potassium Chloride Carbon Dioxide Anion Gap BUN Creatinine Est GFR ( Amer) Est GFR (Non-Af Amer) Glucose Calcium C-Reactive Prot, Quant 8.4 H Serum Total Protein Albumin (Send Out) Globulin (PEP) Albumin/Globulin (PEP) Yiklq-9-Fsazcqrhr Rjald-0-Qrpcicrxu Beta Globulins Gamma Globulins M-Franky PEP Note IgG IgA IgM Serum Immunofixation A&P - Cardiology (1) HFrEF (heart failure with reduced ejection fraction): Assessment/Problem Details: Appears to be for the most part compensated.? We will repeat echocardiogram to reassess ejection fraction especially in view of the lower extremity edema despite medical therapy. Code(s): I50.20 - Unspecified systolic (congestive) heart failure Status: Acute Plan: Continue to hold carvedilol and digoxin No need for pacemaker (2) Atrial fibrillation: Assessment/Problem Details: This is chronic and managed with rate control anticoagulation. He is currently having significant pauses on telemetry. He is currently on 2 agents to contribute to this including digoxin and Coreg. Code(s): I48.91 - Unspecified atrial fibrillation Status: Chronic Plan: We will potentially reinitiate low-dose carvedilol in the future (3) Bradycardia: Assessment/Problem Details: Caused by atrial fibrillation with slow ventricular response on 2 agents contributing to bradycardia that is digoxin and Coreg. Code(s): R00.1 - Bradycardia, unspecified Status: Acute Documented By: Bhupinder Mcintyre DO 01/12/221649 Signed By: <Electronically signed by Bhupinder Mcintyre DO> 01/12/221810 [facility] Work Phone: Progress note Author Mani Dickens [facility] January 13, 2022 6:10pm Note Date/Time January 13, 2022 8 :13am [facility] EN[facility] [address] [place] [address] Neurology Progress Note Signed with Addenda Patient: Irineo Wallis Jr MR# : [id number] : 1940 Acct:[id number] Age/Sex: 81 / M Adm Date: 2 Loc: Room: [address] [place] [address] Type: ADM IN Attending Dr: Raji Ennis MD Copies to: ~ ADDENDUM1 The patient is an 81-year-old male with chronic back pain and increased difficulty ambulating admitted to the hospital due to difficulty getting around. The patient had an MRI scan of the lumbar spine which did not reveal evidence of an acute process. There is no evidence of recurrent ependymoma or severe degenerative changes. The patient does have moderate degenerative disc disease for which she has seen pain management in the past likely contributing to his symptoms. Cannot exclude clued a right hip process contributing to a component of the right leg pain. I will obtain an x-ray of the right hip. The patient would benefit from physical therapy and likely rehabilitation. I counseled the patient and his daughter on the possible diagnosis, evaluation, treatment options. Addendum Documented By: MD Mani Dickens 01/13/221809 Addendum Signed By: <Electronically signed by MD Mani Dickens> 01/13/221809 Date of Service: 01/13/2022 Subjective Subjective Narrative: Patient ambulating back from the bathroom with physical therapy. Continues to complain of severe back pain that radiates down both legs, right greater than the left. Review of Systems Cardiovascular Cardiovascular: Denies chest pain Respiratory Respiratory: Denies dyspnea Musculoskeletal Musculoskeletal: Reports back pain, Reports muscle weakness and Reports radiating pain into limb Neurologic Neurologic: Denies abnormal speech, Reports confusion, Reports localized weakness (Lower extremities greater than upper), Denies headache(s) and Reports memory loss Exam Physical Exam Vital Signs: Temp Pulse Resp BP Pulse Ox O2 Del Method O2 Flow Rate 98.7 F 73 18 102/49 L 90 L Room Air 1 01/13/22 04:00 01/13/22 04:00 01/13/22 04:00 01/13/22 04:00 01/13/22 04:00 01/13/22 04:00 01/11/22 04:50 Narrative: GENERAL EXAM: * Constitutional - Patient appears well nourished and well groomed * Patient is alert and oriented to person only. NEURO EXAM: * Attention span/concentration impaired, improved * Speech is minimal but clear * Cranial nerve II. Vision is intact. KRISTA * Cranial nerve III, IV and . EOM grossly intact. No obvious nystagmus * Cranial nerve V and VII. No facial asymmetry is appreciated. Temperature and touch is intact * Cranial nerve VIII hearing is intact * Cranial nerve IX and X speech is minimal but clear * Cranial nerve XI head turn side to side full range of motion. Shoulder shrug is equal bilaterally * Cranial nerve XII tongue is midline full range of motion MOTOR EXAM: * Strength is 5/5 in bilateral upper extremities. No pronator drift was appreciated * 4/5 in the left lower extremity and -5/5 in the right lower extremity * Muscle tone and bulk are normal * Gait not assessed SENSORY EXAM: * Temperature and touch are intact in all 4 extremities. Decreased sensation be low the knee to all modalities. CEREBELLAR EXAM: * Alternating movements are intact and normal in bilateral upper extremities * Alternating movements are intact and normal in lower extremities * Unable to test finger-nose or [id number] due to drowsiness REFLEX EXAM: * 1/4 throughout Objective Vital Signs Vital Signs: Vital Signs - 24 hr 01/12/22 08:21 01/12/22 08:22 01/12/22 11:30 Temperature 98.9 F Pulse Rate 65 Respiratory Rate 18 Blood Pressure 117/82 02 Sat by Pulse Oximetry 94 L Oxygen Delivery Method Room Air Room Air Room Air 01/12/22 11:31 01/12/22 12:10 01/12/22 12:59 Temperature 100.2 F H 100.6 F H 100.4 F H Pulse Rate 60 Respiratory Rate 16 Blood Pressure 161/93 H 02 Sat by Pulse Oximetry 93 L Oxygen Delivery Method Room Air 01/12/22 13:35 01/12/22 15:15 01/12/22 15:25 Temperature 99.6 F H 100.0 F H Pulse Rate 51 L Respiratory Rate 18 Blood Pressure 118/67 02 Sat by Pulse Oximetry 93 L Oxygen Delivery Method Room Air Room Air 01/12/22 15:55 01/12/22 16:00 01/12/22 20:00 Temperature 98.8 F 98.3 F Pulse Rate 67 Respiratory Rate 18 Blood Pressure 133/65 02 Sat by Pulse Oximetry 95 Oxygen Delivery Method Room Air Room Air 01/12/22 23:11 01/12/22 20:00 01/13/22 00:00 Temperature 98.7 F Pulse Rate 77 Respiratory Rate 18 Blood Pressure 123/70 02 Sat by Pulse Oximetry 92 L Oxygen Delivery Method Room Air Room Air Room Air 01/13/22 04:00 Temperature 98.7 F Pulse Rate 73 Respiratory Rate 18 Blood Pressure 102/49 L 02 Sat by Pulse Oximetry 90 L Oxygen Delivery Method Room Air Labs CBC & Chem 7: 01/13/22 07:28 01/13/22 07:28 Therapy Recommendations Therapy Recommendations: OT Recommendations OT Recommended Discharge [facility]dc Facility Location OT Recommended Services at Physical Therapy,Occupational Therapy Discharge PT Recommendations PT Recommended Discharge Fdc Facility Location PT Recommended Services at Physical Therapy,Occupational Therapy,27/09 Discharge Supervision Assessment/Plan (1) Altered mental status: Code(s): R41.82 - Altered mental status, unspecified Status: Acute (2) Falls frequently: Assessment/Problem Details: 81-year-old man with medical history of atrial fibrillation on Eliquis, congestive heart failure, obstructive sleep apnea which is untreated, and degenerative joint disease. 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 He presented to the emergency department on January 09, 2022 via EMS for evaluation of fall and injury. He got up to go to the bathroom in the middle the night with his walker and lost his balance andfell and was unable to get back up, being stuck on the floor for several hours. It sounds like there may have been some preceding dizziness that contributed. CT scan of the head and spine were unrevealing. Dr. Sesar Calvillo did the operation. They were told that when they did the resection the surgeon could not take all of it. He has subsequent spinal imaging that continues to show some evidence oftumor. He has a lot of low back pain. Some of those back pain seem to radiate into his upper thighs, which he describes as a dull ache. Chronic low back painand lower extremity weakness with progressive worsening is likely multifactorial. Symptoms into the legs and thighs may represent chronic lumbar radiculopathy. He has very little sensation in the feet, and no vibratory sensation, which likely affects his balance and suggest possible polyneuropathy. DATA REVIEW: MRI lumbar spine from July 08, 2004 shows a stable contrast-enhancing mass within the intradural space at the L2-3 level, and postsurgical changes with bilateral laminectomies at L4-5 and L5-S1 MRI lumbar spine from January 06, 2015 shows laminectomy defects at L2-L5 and redemonstration of intradural foci of enhancement in the lower lumbar spine and severe central spinal canal stenosis at L3-4 Interval history: Still with significant pain that radiates from his back down into his lower extremities. Right leg is more painful than the left. Pain is constant and varies in intensity. He is on oxycodone and hydromorphone. Last dose of Dilaudid was yesterday morning. 1. MRI lumbar spine with and without contrast. Consider neurosurgical evaluation based on MRI results 2. Neuropathy lab work-up: B12 was 458, folate 8.8, TSH 3.99. SPEP and immunofixation negative 3. Hemoglobin A1c pending 4. Febrile with T-max overnight 100.6 at noon yesterday. UTI. Urine culture negative at 2 days. Blood cultures are pending. Chest x-ray shows marked improvement of diffuse groundglass parenchymal densities representing decreased pulmonary edema. Minimal residual basilar pleural-parenchymal densities. Unchanged cardiomegaly. Treatment per primary team 5. COVID-19 negative 6. PT/OT recommend SNF 7. We will follow Code(s): R29.6 - Repeated falls Status: Acute Documented By: MEI Tristan [id number] Signed By: <Electronically signed by MEI Knight> 01/13/22 1520 [facility] Work Phone: Progress note Author Raji Ennis [facility] January 13, 2022 3:44pm Note Date/Time January 13, 2022 3 :27pm [facility] [address] [place] [address] Hospitalist Progress Note Signed Patient: Irineo Wallis Jr MR# : [id number] : 1940 Acct:[id number] Age/Sex: 81 / M Adm Date: 2 Loc: Room: [address] [place] [address] Type: ADM IN Attending Dr: Raji Ennis MD Copies to: ~ Date of Service: 01/13/2022 Subjective Subjective Narrative: patient seen and examined. He is comfortably sitting in chair having lunch. He is awake, alert and oriented. Able to answer questions appropriately. Denies anysob, cough, chest pain. He has not had any fever since yesterday afternoon. States that he slept well last night. Exam Physical Exam Vital Signs: Temp Pulse Resp BP Pulse Ox O2 Del Method O2 Flow Rate 98.3 F 56 L 12 150/74 H 98 Room Air 1 01/13/22 08:00 01/13/22 12:00 01/13/22 12:00 01/13/22 12:00 01/13/22 12:00 01/13/22 14:00 01/11/22 04:50 Narrative: General: awake, alert and oriented. HEENT: Normocephalic, atraumatic, PERRLA, normal mucosa Cardiovascular: Irregular rate and rhythm , S1-S2 heard, no murmurs or gallops Lungs: No wheezing or rhonchi heard Gastrointestinal: Soft, nontender, bowel sounds heard Extremities: 1+ edema in legs bilaterally Neurological: no sensory or motor deficit Skin: Dry and warm, no rashes or lesions Psych: Normal mood and affect Objective Lab Results CBC & Chem 7: 01/13/22 07:28 01/13/22 07:28 Microbiology Results Microbiology 01/12/22 13:30 Blood - Left Antecubital Blood Culture - Preliminary No Growth 1 Day 01/12/22 13:33 Blood - Left Hand Blood Culture - Preliminary No Growth 1 Day Meds Allergies and Active Meds Allergies fentanyl Allergy (Verified 01/09/22 09:38) Dizziness indomethacin [From Indocin] Allergy (Verified 01/09/22 09:38) Dizziness Penicillins Allergy (Verified 01/09/22 09:38) Weakness zolpidem [From Ambien] Adverse Reaction (Verified 01/09/22 09:38) Confusion Active Meds: Active Medications Generic Name Dose Route Start Last Admin Trade Name Vince PRN Reason Stop Dose Admin Acetaminophen 650 mg 01/09/22 14:41 01/12/22 11:38 Acetaminophen 325 Mg Tablet PO 01/09/23 14:40 650 mg Q6HR PRN Administration Pain Scale 1 - 3 or fever Allopurinol 300 mg 01/10/22 09:00 01/13/22 09:43 Allopurinol 300 Mg Tablet PO 01/10/23 08:59 300 mg DAILY ANIBAL Administration Apixaban 5 mg 01/09/22 21:00 01/13/22 09:43 Apixaban 5 Mg Tablet PO 01/09/23 20:59 5 mg BID ANIBAL Administration Atorvastatin Calcium 40 mg 01/09/22 22:00 01/12/22 22:51 Atorvastatin 40 Mg Tablet PO 01/09/23 21:59 40 mg QHS ANIBAL Administration Bisacodyl 10 mg 01/09/22 14:41 Bisacodyl 10 Mg Supp.Rect DC 01/09/23 14:40 DAILY PRN Constipation Bisacodyl 10 mg 01/09/22 14:41 01/12/22 08:22 Bisacodyl 5 Mg Tablet.Dr PO 01/09/23 14:40 10 mg DAILY PRN Administration Constipation Bumetanide 1 mg 01/13/22 16:00 Bumetanide 1 Mg Tablet PO 01/13/23 15:59 BID@0800,1600 ANIBAL Docusate Sodium 100 mg 01/09/22 21:00 01/13/22 09:43 Docusate 100 Mg Capsule PO 01/09/23 20:59 100 mg BID ANIBAL Administration Fluticasone Propionate 1 spray 01/09/22 15:17 Fluticasone Propionate [place] [address] [place]/16 Gm Bottle NARES-BOTH 01/09/23 15:16 QHS PRN Nasal Congestion Magnesium Sulfate 2 gm in 50 mls @ 25 mls/hr 01/09/22 14:41 Magnesium Sulf 2gm-*Swfi* IV 01/09/23 14:40 DAILY PRN Magnesium Level < 1.5 Cefepime HCl 2 gm in 50 mls @ 100 mls/hr 01/12/22 15:06 01/13/22 03:07 Maxipime IV 100 mls/hr Q12H ANIBAL Administration Levothyroxine Sodium 150 mcg 01/10/22 06:30 01/13/22 06:26 Levothyroxine 150 Mcg Tablet PO 01/10/23 06:29 150 mcg DAILY@0630 ANIBAL Administration Magnesium Hydroxide 30 ml 01/09/22 14:41 Magnesium Hydroxide Susp 30 Ml Udc PO 01/09/23 14:40 BID PRN Constipation Magnesium Oxide 400 mg 01/10/22 09:00 01/13/22 09:43 Magnesium Oxide 400 Mg Tablet PO 01/10/23 08:59 400 mg DAILY ANIBAL Administration Nitroglycerin 0.4 mg 01/09/22 14:41 Nitroglycerin 0.4 Mg Tab.Subl SUBLINGUAL 01/09/23 14:40 Q5MIN.X3 PRN Chest Pain Pom Eszopiclone 3 Mg 3 mg 01/11/22 22:00 01/12/22 22:51 Tablet PO 01/11/23 21:59 3 mg HS ANIBAL Administration Nystatin 1 applic 01/09/22 22:00 01/13/22 09:43 Nystatin 100,000 Unit/Gram Powder 15 Gm Bottle TOPICAL 01/09/23 21:59 1 applic TID ANIBAL Administration Ondansetron HCl 4 mg 01/09/22 14:41 Ondansetron 4 Mg/2 Ml Vial IV-PUSH 01/09/23 14:40 Q8H PRN Nausea And Vomiting Oxycodone/Acetaminophen 1 tab 01/13/22 14:26 Oxycodone/Acetaminophen 5-325 Mg Tablet PO Q8H PRN Moderate Pain Potassium Chloride 20 meq 01/09/22 14:41 01/11/22 08:43 Potassium Chloride Er 20 Meq Tab.Er.Prt PO 01/09/23 14:40 20 meq DAILY PRN Administration Hypokalemia Potassium Chloride 40 meq 01/09/22 14:41 Potassium Chloride Er 20 Meq Tab.Er.Prt PO 01/09/23 14:40 DAILY PRN Hypokalemia Potassium Chloride 20 meq 01/09/22 21:00 01/12/22 22:51 Potassium Chloride Er 20 Meq Tab.Er.Prt PO 01/09/23 20:59 20 meq QPM ANIBAL Administration Sodium Chloride 0 ml 01/09/22 09:38 01/10/22 23:31 Sodium Chloride 0.9 % 10 Ml Syringe IV-PUSH 01/09/23 09:37 10 ml PRN PRN Administration Flush Sodium Chloride 0 ml 01/09/22 22:00 01/13/22 06:26 Sodium Chloride 0.9 % 10 Ml Syringe IV-PUSH 01/09/23 21:59 10 ml QSHIFT ANIBAL Administration Vancomycin HCl 1 each 01/12/22 14:20 Vancomycin - Pharmacy Dosing 1 Each Miscell IV ONCE PRN ZZ.Pharmacy Consult Protocol A&P - Hospitalist Assessment/Plan (1) Acute on chronic congestive heart failure with left ventricular diastolic dysfunction: (2) Falls frequently: (3) Difficulty walking: (4) Bladder retention: (5) Constipation: (6) Acute respiratory failure with hypoxia: (7) Pleural effusion: (8) Atrial fibrillation: (9) Hypertension: (10) Anasarca: (11) Generalized weakness: (12) Impaired activities of daily living: (13) Sleep apnea: (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 Denies any complaints. Has been hemodynamically stable and afebrile since yesterday. No leukocytosis Chest x-ray showed no signs of infection. Blood cultures pending. ID on board. Continue antibiotics. Cardiology on board, digoxin and Coreg has been on hold with no signs of bradycardia. Plan to reinitiate Coreg in near future. Echocardiogram showed normal EF with mild to moderate left ventricular hypertrophy, moderate pulmonary hypertension. Carotid Doppler showed no hemodynamically significant stenosis in either extracranial ICA, both vertebral arteries are patent with antegrade flow MRI of the lumbar spine showed multilevel degenerative changes with mild to moderate canal stenosis. Has good urine output with aggressive IV diuresis. Will switch IV to PO. Monitor electrolytes Fall precautions PT/OT DVT prophylaxis Documented By: Raji Ennis MD 01/13/22 1528 Signed By: <Electronically signed by Raji Ennis MD> 01/13/22 3700 [facility] Work Phone: Progress note Author Victor Manuel Reynolds [facility] January 14, 2022 9:39am Note Date/Time January 14, 2022 9:39am [facility] [address] [place] [address] Infect. Disease Progress Note Signed Patient: Irineo Wallis Jr MR# : [id number] : 1940 Acct:[id number] Age/Sex: 81 / M Adm Date: 2 Loc: Room: [address] [place] [address] Type: ADM IN Attending Dr: Raji Ennis MD Copies to: ~ Date of Service: 01/14/2022 Subjective Interval history: Patient is sitting in chair as he was yesterday. Denies any new complaints. Nonausea vomiting or diarrhea. Remains afebrile. Exam Physical Exam Vital Signs: Vital Signs Temp Pulse Resp BP Pulse Ox O2 Del Method O2 Flow Rate 01/14/22 08:50 Room Air 01/14/22 07:25 97.8 F 71 16 96/62 L 93 L Room Air 01/14/22 03:27 97.6 F 62 16 131/73 93 L Room Air 01/14/22 00:00 Room Air 01/13/22 23:30 98.4 F 71 16 111/60 94 L Room Air 01/13/22 20:36 Room Air 01/13/22 19:18 98.1 F 65 16 122/69 93 L Room Air 01/13/22 16:00 Room Air 1 01/13/22 16:00 Room Air 01/13/22 16:36 98.6 F 71 16 133/79 92 L Room Air 01/13/22 14:00 Room Air 01/13/22 12:00 56 L 12 150/74 H 98 Room Air Const General: comfortable and no acute distress Orientation: oriented x3 HEENT Head: normal to inspection Nose: external nose normal Face and sinus: normal facial exam Mouth: oral mucosae normal Eyes General: appearance normal, both eyes and all related structures Neck Neck: normal visual inspection Chest Chest palpation & inspection: normal inspection of the chest Resp Effort & Inspection: normal respiratory effort, able to speak in complete sentences and symmetric chest movement Auscultation: clear to auscultation bilaterally Cardio Palpation: normal PMI Rate: regular rate GI Inspection: normal to inspection Palpation: soft and nontender General: other (chou) Skin General: other (multiple areas with bandages from traumas when he fell) Neuro General: patient oriented x3 Objective Labs Labs: 01/13/22 13:50 Urine Color Yellow Urine Appearance Clear Urine pH 5.5 Ur Specific [place] 1.012 Urine Protein 30 H Urine Glucose (UA) Normal Urine Ketones Negative Urine Occult Blood 3+ H Urine Nitrite Negative Urine Bilirubin Negative Urine Urobilinogen Normal Ur Leukocyte Esterase 2+ H Urine RBC 50-100 H Urine WBC 5-9 H Ur Squamous Epith Cells 0-1 Urine Bacteria None seen Hyaline Casts 0-8 Microbiology Microbiology: 01/13/22 13:50 Urine Culture - Pending [place]ou [place] 01/12/22 13:30 Blood Culture - Preliminary Blood - Left Antecubital No Growth 1 Day 01/12/22 13:33 Blood Culture - Preliminary Blood - Left Hand No Growth 1 Day 01/09/22 12:42 Urine Culture - Final Urine - Clean-Voided Midstream 30,000 colonies/ml mixed bacterial skin contaminants 2 Days Allergies and Medications Allergies and Active Meds Allergies fentanyl Allergy (Verified 01/09/22 09:38) Dizziness indomethacin [From Indocin] Allergy (Verified 01/09/22 09:38) Dizziness Penicillins Allergy (Verified 01/09/22 09:38) Weakness zolpidem [From Ambien] Adverse Reaction (Verified 01/09/22 09:38) Confusion Active Medications Acetaminophen (Acetaminophen 325 Mg Tablet) 650 mg PO Q6HR PRN PRN Reason: Pain Scale 1 - 3 or fever Stop: 01/09/23 14:40 Last Admin: 01/13/22 21:26 Dose: 650 mg Allopurinol (Allopurinol 300 Mg Tablet) 300 mg PO DAILY ANIBAL Stop: 01/10/23 08:59 Last Admin: 01/14/22 08:04 Dose: 300 mg Apixaban (Apixaban 5 Mg Tablet) 5 mg PO BID ANIBAL Stop: 01/09/23 20:59 Last Admin: 01/14/22 08:04 Dose: 5 mg Atorvastatin Calcium (Atorvastatin 40 Mg Tablet) 40 mg PO QHS ANIBAL Stop: 01/09/23 21:59 Last Admin: 01/13/22 21:26 Dose: 40 mg Bisacodyl (Bisacodyl 10 Mg Supp.Rect) 10 mg DC DAILY PRN PRN Reason: Constipation Stop: 01/09/23 14:40 Bisacodyl (Bisacodyl 5 Mg Tablet.Dr) 10 mg PO DAILY PRN PRN Reason: Constipation Stop: 01/09/23 14:40 Last Admin: 01/13/22 21:26 Dose: 10 mg Bumetanide (Bumetanide 1 Mg Tablet) 1 mg PO BID@0800,1600 [facility] Stop: 01/13/23 15:59 Docusate Sodium (Docusate 100 Mg Capsule) 100 mg PO BID [facility] Stop: 01/09/23 20:59 Last Admin: 01/14/22 08:03 Dose: 100 mg Fluticasone Propionate (Fluticasone Propionate [place] [address] [place]/16 Gm Bottle) 1 spray NARES-BOTH QHS PRN PRN Reason: Nasal Congestion Stop: 01/09/23 15:16 Magnesium Sulfate (Magnesium Sulf 2gm-*Swfi*) 2 gm in 50 mls @ 25 mls/hr IV DAILY PRN PRN Reason: Magnesium Level < 1.5 Stop: 01/09/23 14:40 Cefepime HCl (Maxipime) 2 gm in 50 mls @ 100 mls/hr IV Q12H [facility] Last Admin: 01/14/22 03:05 Dose: 100 mls/hr Vancomycin HCl 1.25 gm/ (Dextrose) 275 mls @ 183.333 mls/hr IV Q24H [facility] Stop: 01/13/23 18:59 Last Infusion: 01/13/22 21:17 Dose: Infused Levothyroxine Sodium (Levothyroxine 150 Mcg Tablet) 150 mcg PO DAILY@0630 [facility] Stop: 01/10/23 06:29 Last Admin: 01/14/22 05:54 Dose: 150 mcg Magnesium Hydroxide (Magnesium Hydroxide Susp 30 Ml Udc) 30 ml PO BID PRN PRN Reason: Constipation Stop: 01/09/23 14:40 Magnesium Oxide (Magnesium Oxide 400 Mg Tablet) 400 mg PO DAILY [facility] Stop: 01/10/23 08:59 Last Admin: 01/14/22 08:04 Dose: 400 mg Nitroglycerin (Nitroglycerin 0.4 Mg Tab.Subl) 0.4 mg SUBLINGUAL Q5MIN.X3 PRN PRN Reason: Chest Pain Stop: 01/09/23 14:40 Pom Eszopiclone 3 Mg (Tablet) 3 mg PO HS [facility] Stop: 01/11/23 21:59 Last Admin: 01/13/22 21:27 Dose: 3 mg Nystatin (Nystatin 100,000 Unit/Gram Powder 15 Gm Bottle) 1 applic TOPICAL TID [facility] Stop: 01/09/23 21:59 Last Admin: 01/14/22 08:04 Dose: 1 applic Ondansetron HCl (Ondansetron 4 Mg/2 Ml Vial) 4 mg IV-PUSH Q8H PRN PRN Reason: Nausea And Vomiting Stop: 01/09/23 14:40 Oxycodone/Acetaminophen (Oxycodone/Acetaminophen 5-325 Mg Tablet) 1 tab PO Q8H PRN PRN Reason: Moderate Pain Potassium Chloride (Potassium Chloride Er 20 Meq Tab.Er.Prt) 20 meq PO DAILY PRN PRN Reason: Hypokalemia Stop: 01/09/23 14:40 Last Admin: 01/11/22 08:43 Dose: 20 meq Potassium Chloride (Potassium Chloride Er 20 Meq Tab.Er.Prt) 40 meq PO DAILY PRN PRN Reason: Hypokalemia Stop: 01/09/23 14:40 Potassium Chloride (Potassium Chloride Er 20 Meq Tab.Er.Prt) 20 meq PO QPM [facility] Stop: 01/09/23 20:59 Last Admin: 01/13/22 21:26 Dose: 20 meq Sodium Chloride (Sodium Chloride 0.9 % 10 Ml Syringe) 0 ml IV-PUSH PRN PRN PRN Reason: Flush Stop: 01/09/23 09:37 Last Admin: 01/10/22 23:31 Dose: 10 ml Sodium Chloride (Sodium Chloride 0.9 % 10 Ml Syringe) 0 ml IV-PUSH QSHIFT [facility] Stop: 01/09/23 21:59 Last Admin: 01/14/22 05:54 Dose: 10 ml Vancomycin HCl (Vancomycin - Pharmacy Dosing 1 Each Miscell) 1 each IV ONCE PRN; Protocol PRN Reason: STEFFEN.Pharmacy Consult A&P - Infectious Disease Assessment/Plan (1) Fever: Code(s): R50.9 - Fever, unspecified Status: Acute Plan Patient in the hospital after falling at home. Patient without elevated white count or fever for the most part this hospital stay. Isolated temperature 48 hours ago that prompted antibiotics to be started. The blood cultures are negative at 1 day at almost 2 days. Urinalysis was sent yesterday that did havesome RBCs but minimal WBCs and no bacteria seen. Urine culture pending. Patient's temperature curve quickly resolved and remains normal. He has been onbroad-spectrum antibiotic therapy but no clear infection has been found to date. Blood cultures to be negative at 48 hours later today and if urine culture remains negative we will plan on stopping antibiotics after tonight's last dose. We then can observe off antibiotic. Uric acid was within normal limits Documented By: Victor Manuel Reynolds MD 01/14/2235 Signed By: <Electronically signed by MD Victor Manuel Reynolds> 01/14/22938 [facility] Work Phone: Progress note Author Raji Ennis [facility] January 14, 2022 5:43pm Note Date/Time January 14, 2022 5:43pm [facility] [address] [place] [address] Hospitalist Progress Note Signed Patient: Irineo Wallis Jr MR# : [id number] : 1940 Acct:[id number] Age/Sex: 81 / M Adm Date: 2 Loc: Room: [address] [place] [address] Type: ADM IN Attending Dr: Raji Ennis MD Copies to: ~ Date of Service: 01/14/2022 Subjective Subjective Narrative: patient seen and examined. He is in good spirits today and is oriented x3. Denies any shortness of breath, cough, chest pain, fever and chills. States that low back pain is fairly well tolerated with pain medications. Exam Physical Exam Vital Signs: Temp Pulse Resp BP Pulse Ox O2 Del Method O2 Flow Rate 97.5 F L 62 16 133/66 96 Room Air 1 01/14/22 15:19 01/14/22 15:19 01/14/22 15:19 01/14/22 15:19 01/14/22 15:19 01/14/22 16:17 01/13/22 16:00 Narrative: General: awake, alert and oriented. HEENT: Normocephalic, atraumatic, PERRLA, normal mucosa Cardiovascular: Irregular rate and rhythm , S1-S2 heard, no murmurs or gallops Lungs: No wheezing or rhonchi heard Gastrointestinal: Soft, nontender, bowel sounds heard Extremities: 1+ edema in legs bilaterally Neurological: no sensory or motor deficit Skin: Dry and warm, no rashes or lesions Psych: Normal mood and affect Objective Lab Results CBC & Chem 7: 01/13/22 07:28 01/13/22 07:28 Microbiology Results Microbiology 01/13/22 13:50 [place] Urine Culture - Preliminary No Growth 1 Day 01/12/22 13:30 Blood - Left Antecubital Blood Culture - Preliminary No Growth 2 Days 01/12/22 13:33 Blood - Left Hand Blood Culture - Preliminary No Growth 2 Days Meds Allergies and Active Meds Allergies fentanyl Allergy (Verified 01/09/22 09:38) Dizziness indomethacin [From Indocin] Allergy (Verified 01/09/22 09:38) Dizziness Penicillins Allergy (Verified 01/09/22 09:38) Weakness zolpidem [From Ambien] Adverse Reaction (Verified 01/09/22 09:38) Confusion Active Meds: Active Medications Generic Name Dose Route Start Last Admin Trade Name Freq PRN Reason Stop Dose Admin Acetaminophen 650 mg 01/09/22 14:41 01/13/22 21:26 Acetaminophen 325 Mg Tablet PO 01/09/23 14:40 650 mg Q6HR PRN Administration Pain Scale 1 - 3 or fever Allopurinol 300 mg 01/10/22 09:00 01/14/22 08:04 Allopurinol 300 Mg Tablet PO 01/10/23 08:59 300 mg DAILY ANIBAL Administration Apixaban 5 mg 01/09/22 21:00 01/14/22 08:04 Apixaban 5 Mg Tablet PO 01/09/23 20:59 5 mg BID ANIBAL Administration Atorvastatin Calcium 40 mg 01/09/22 22:00 01/13/22 21:26 Atorvastatin 40 Mg Tablet PO 01/09/23 21:59 40 mg QHS ANIBAL Administration Bisacodyl 10 mg 01/09/22 14:41 Bisacodyl 10 Mg Supp.Rect DC 01/09/23 14:40 DAILY PRN Constipation Bisacodyl 10 mg 01/09/22 14:41 01/13/22 21:26 Bisacodyl 5 Mg Tablet.Dr PO 01/09/23 14:40 10 mg DAILY PRN Administration Constipation Bumetanide 1 mg 01/14/22 16:00 01/14/22 15:13 Bumetanide 1 Mg Tablet PO 01/14/23 15:59 1 mg DAILY@0800 ANIBAL Administration Docusate Sodium 100 mg 01/09/22 21:00 01/14/22 08:03 Docusate 100 Mg Capsule PO 01/09/23 20:59 100 mg BID ANIBAL Administration Fluticasone Propionate 1 spray 01/09/22 15:17 Fluticasone Propionate [place] 120 [place]/16 Gm Bottle NARES-BOTH 01/09/23 15:16 QHS PRN Nasal Congestion Magnesium Sulfate 2 gm in 50 mls @ 25 mls/hr 01/09/22 14:41 Magnesium Sulf 2gm-*Swfi* IV 01/09/23 14:40 DAILY PRN Magnesium Level < 1.5 Cefepime HCl 2 gm in 50 mls @ 100 mls/hr 01/12/22 15:06 01/14/22 15:13 Maxipime IV 01/14/22 23:59 100 mls/hr Q12H ANIBAL Administration Vancomycin HCl 1.25 gm/ 275 mls @ 183.333 mls/hr 01/13/22 19:00 01/13/22 21:17 Dextrose IV 01/14/22 23:59 Infused Q24H ANIBAL Infusion Levothyroxine Sodium 150 mcg 01/10/22 06:30 01/14/22 05:54 Levothyroxine 150 Mcg Tablet PO 01/10/23 06:29 150 mcg DAILY@0630 ANIBAL Administration Magnesium Hydroxide 30 ml 01/09/22 14:41 Magnesium Hydroxide Susp 30 Ml Udc PO 01/09/23 14:40 BID PRN Constipation Magnesium Oxide 400 mg 01/10/22 09:00 01/14/22 08:04 Magnesium Oxide 400 Mg Tablet PO 01/10/23 08:59 400 mg DAILY ANIBAL Administration Nitroglycerin 0.4 mg 01/09/22 14:41 Nitroglycerin 0.4 Mg Tab.Subl SUBLINGUAL 01/09/23 14:40 Q5MIN.X3 PRN Chest Pain Pom Eszopiclone 3 Mg 3 mg 01/11/22 22:00 01/13/22 21:27 Tablet PO 01/11/23 21:59 3 mg HS ANIBAL Administration Nystatin 1 applic 01/09/22 22:00 01/14/22 15:13 Nystatin 100,000 Unit/Gram Powder 15 Gm Bottle TOPICAL 01/09/23 21:59 1 applic TID ANIBAL Administration Ondansetron HCl 4 mg 01/09/22 14:41 Ondansetron 4 Mg/2 Ml Vial IV-PUSH 01/09/23 14:40 Q8H PRN Nausea And Vomiting Oxycodone/Acetaminophen 1 tab 01/13/22 14:26 01/14/22 16:35 Oxycodone/Acetaminophen 5-325 Mg Tablet PO 1 tab Q8H PRN Administration Moderate Pain Potassium Chloride 20 meq 01/09/22 14:41 01/11/22 08:43 Potassium Chloride Er 20 Meq Tab.Er.Prt PO 01/09/23 14:40 20 meq DAILY PRN Administration Hypokalemia Potassium Chloride 40 meq 01/09/22 14:41 Potassium Chloride Er 20 Meq Tab.Er.Prt PO 01/09/23 14:40 DAILY PRN Hypokalemia Potassium Chloride 20 meq 01/09/22 21:00 01/13/22 21:26 Potassium Chloride Er 20 Meq Tab.Er.Prt PO 01/09/23 20:59 20 meq QPM ANIBAL Administration Sodium Chloride 0 ml 01/09/22 09:38 01/10/22 23:31 Sodium Chloride 0.9 % 10 Ml Syringe IV-PUSH 01/09/23 09:37 10 ml PRN PRN Administration Flush Sodium Chloride 0 ml 01/09/22 22:00 01/14/22 15:13 Sodium Chloride 0.9 % 10 Ml Syringe IV-PUSH 01/09/23 21:59 10 ml QSHIFT ANIBAL Administration Vancomycin HCl 1 each 01/14/22 12:05 Vancomycin - Pharmacy Dosing 1 Each Miscell IV 01/14/22 23:59 ONCE PRN ZZ.Pharmacy Consult Protocol A&P - Hospitalist Assessment/Plan (1) Acute on chronic congestive heart failure with left ventricular diastolic dysfunction: (2) Falls frequently: (3) Difficulty walking: (4) Bladder retention: (5) Constipation: (6) Acute respiratory failure with hypoxia: (7) Pleural effusion: (8) Atrial fibrillation: (9) Hypertension: (10) Anasarca: (11) Generalized weakness: (12) Impaired activities of daily living: (13) Sleep apnea: (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 Denies any complaints. Has been hemodynamically stable and afebrile for the past 2 days No leukocytosis Chest x-ray showed no signs of infection. Blood cultures showed no growth so far ID on board. Will discontinue antibiotics if cultures remain negative for 2 days Cardiology on board, digoxin and Coreg has been on hold with no signs of bradycardia. Plan to reinitiate Coreg in near future. Echocardiogram showed normal EF with mild to moderate left ventricular hypertrophy, moderate pulmonary hypertension. Carotid Doppler showed no hemodynamically significant stenosis in either extracranial ICA, both vertebral arteries are patent with antegrade flow MRI of the lumbar spine showed multilevel degenerative changes with mild to moderate canal stenosis. CT hip showed no acute bony findings Continue Bumex 1 mg p.o. daily Monitor electrolytes Fall precautions PT/OT DVT prophylaxis Documented By: Raji Ennis MD 01/14/221740 Signed By: <Electronically signed by Raji Ennis MD> 01/14/22 174 [facility] Work Phone: Progress note Author Victor Manuel Reynolds [facility] January 15, 2022 12:21pm Note Date/Time January 15, 2022 12:21pm [facility] [address] [place] [address] Infect. Disease Progress Note Signed Patient: Irineo Wallis Jr MR# : [id number] : 1940 Acct:[id number] Age/Sex: 81 / M Adm Date: 2 Loc: Room: [address] [place] [address] Type: ADM IN Attending Dr: Raji Ennis MD Copies to: ~ Date of Service: 01/15/2022 Subjective Interval history: Patient had his antibiotics discontinued last night due to the fact that cultures remain negative. Remains afebrile without new complaints. Exam Physical Exam Vital Signs: Temp Pulse Resp BP Pulse Ox O2 Del Method O2 Flow Rate 97.8 F 68 18 113/61 96 Room Air 1 01/15/22 08:00 01/15/22 11:41 01/15/22 11:41 01/15/22 11:41 01/15/22 11:41 01/15/22 11:41 01/13/22 16:00 Const General: comfortable and no acute distress Orientation: oriented x3 HEENT Head: normal to inspection Nose: external nose normal Face and sinus: normal facial exam Mouth: oral mucosae normal Eyes General: appearance normal, both eyes and all related structures Neck Neck: normal visual inspection Chest Chest palpation & inspection: normal inspection of the chest Resp Effort & Inspection: normal respiratory effort, able to speak in complete sentences and symmetric chest movement Auscultation: clear to auscultation bilaterally Cardio Palpation: normal PMI Rate: regular rate GI Inspection: normal to inspection Palpation: soft and nontender General: other (chou) Skin General: other (multiple areas with bandages from traumas when he fell) Neuro General: patient oriented x3 Objective Labs CBC/BMP: CBC, BMP 01/15/22 01/15/22 06:18 06:18 Corrected WBC 7.9 Uncorrected WBC Count 7.9 RBC 3.48 L Hgb 11.7 L Hct 34.7 L Plt Count 180 Sodium 130 L Potassium 3.9 Chloride 94 L Carbon Dioxide 31.7 H Anion Gap 8.2 BUN 29 H Creatinine 1.50 H Calcium 8.8 Labs: 01/15/22 06:18 BUN 29 H Creatinine 1.50 H Microbiology Microbiology: Microbiology - Results from entire visit 01/13/22 13:50 Chou Port Urine Culture - Final No Growth 2 Days 01/12/22 13:30 Blood - Left Antecubital Blood Culture - Preliminary No Growth 2 Days 01/12/22 13:33 Blood - Left Hand Blood Culture - Preliminary No Growth 2 Days 01/09/22 12:42 Urine - Clean-Voided Midstream Urine Culture - Final 30,000 colonies/ml mixed bacterial skin contaminants 2 Days 01/09/22 10:12 Nasal SARS Antigen (LFIA) - Final Allergies and Medications Allergies and Active Meds Allergies fentanyl Allergy (Verified 01/09/22 09:38) Dizziness indomethacin [From Indocin] Allergy (Verified 01/09/22 09:38) Dizziness Penicillins Allergy (Verified 01/09/22 09:38) Weakness zolpidem [From Ambien] Adverse Reaction (Verified 01/09/22 09:38) Confusion Active Medications Acetaminophen (Acetaminophen 325 Mg Tablet) 650 mg PO Q6HR PRN PRN Reason: Pain Scale 1 - 3 or fever Stop: 01/09/23 14:40 Last Admin: 01/14/22 19:57 Dose: 650 mg Allopurinol (Allopurinol 300 Mg Tablet) 300 mg PO DAILY [facility] Stop: 01/10/23 08:59 Last Admin: 01/15/22 08:46 Dose: 300 mg Apixaban (Apixaban 5 Mg Tablet) 5 mg PO BID ANIBAL Stop: 01/09/23 20:59 Last Admin: 01/15/22 08:46 Dose: 5 mg Atorvastatin Calcium (Atorvastatin 40 Mg Tablet) 40 mg PO QHS ANIBAL Stop: 01/09/23 21:59 Last Admin: 01/14/22 21:32 Dose: 40 mg Bisacodyl (Bisacodyl 10 Mg Supp.Rect) 10 mg DC DAILY PRN PRN Reason: Constipation Stop: 01/09/23 14:40 Bisacodyl (Bisacodyl 5 Mg Tablet.Dr) 10 mg PO DAILY PRN PRN Reason: Constipation Stop: 01/09/23 14:40 Last Admin: 01/14/22 19:57 Dose: 10 mg Bumetanide (Bumetanide 1 Mg Tablet) 1 mg PO DAILY@0800 [facility] Stop: 01/14/23 15:59 Last Admin: 01/15/22 08:46 Dose: 1 mg Docusate Sodium (Docusate 100 Mg Capsule) 100 mg PO BID [facility] Stop: 01/09/23 20:59 Last Admin: 01/15/22 08:46 Dose: 100 mg Fluticasone Propionate (Fluticasone Propionate [place] 120 [place]/16 Gm Bottle) 1 spray NARES-BOTH QHS PRN PRN Reason: Nasal Congestion Stop: 01/09/23 15:16 Magnesium Sulfate (Magnesium Sulf 2gm-*Swfi*) 2 gm in 50 mls @ 25 mls/hr IV DAILY PRN PRN Reason: Magnesium Level < 1.5 Stop: 01/09/23 14:40 Levothyroxine Sodium (Levothyroxine 150 Mcg Tablet) 150 mcg PO DAILY@0630 [facility] Stop: 01/10/23 06:29 Last Admin: 01/15/22 06:38 Dose: Not Given Magnesium Hydroxide (Magnesium Hydroxide Susp 30 Ml Udc) 30 ml PO BID PRN PRN Reason: Constipation Stop: 01/09/23 14:40 Magnesium Oxide (Magnesium Oxide 400 Mg Tablet) 400 mg PO DAILY [facility] Stop: 01/10/23 08:59 Last Admin: 01/15/22 08:46 Dose: 400 mg Nitroglycerin (Nitroglycerin 0.4 Mg Tab.Subl) 0.4 mg SUBLINGUAL Q5MIN.X3 PRN PRN Reason: Chest Pain Stop: 01/09/23 14:40 Pom Eszopiclone 3 Mg (Tablet) 3 mg PO HS [facility] Stop: 01/11/23 21:59 Last Admin: 01/14/22 21:32 Dose: 3 mg Nystatin (Nystatin 100,000 Unit/Gram Powder 15 Gm Bottle) 1 applic TOPICAL TID [facility] Stop: 01/09/23 21:59 Last Admin: 01/15/22 08:46 Dose: 1 applic Ondansetron HCl (Ondansetron 4 Mg/2 Ml Vial) 4 mg IV-PUSH Q8H PRN PRN Reason: Nausea And Vomiting Stop: 01/09/23 14:40 Oxycodone/Acetaminophen (Oxycodone/Acetaminophen 5-325 Mg Tablet) 1 tab PO Q8H PRN PRN Reason: Moderate Pain Last Admin: 01/15/22 04:13 Dose: 1 tab Potassium Chloride (Potassium Chloride Er 20 Meq Tab.Er.Prt) 20 meq PO DAILY PRN PRN Reason: Hypokalemia Stop: 01/09/23 14:40 Last Admin: 01/11/22 08:43 Dose: 20 meq Potassium Chloride (Potassium Chloride Er 20 Meq Tab.Er.Prt) 40 meq PO DAILY PRN PRN Reason: Hypokalemia Stop: 01/09/23 14:40 Potassium Chloride (Potassium Chloride Er 20 Meq Tab.Er.Prt) 20 meq PO QPM [facility] Stop: 01/09/23 20:59 Last Admin: 01/14/22 21:32 Dose: 20 meq Sodium Chloride (Sodium Chloride 0.9 % 10 Ml Syringe) 0 ml IV-PUSH PRN PRN PRN Reason: Flush Stop: 01/09/23 09:37 Last Admin: 01/10/22 23:31 Dose: 10 ml Sodium Chloride (Sodium Chloride 0.9 % 10 Ml Syringe) 0 ml IV-PUSH QSHIFT [facility] Stop: 01/09/23 21:59 Last Admin: 01/15/22 06:38 Dose: Not Given A&P - Infectious Disease Assessment/Plan (1) Fever: Code(s): R50.9 - Fever, unspecified Status: Acute Plan Antibiotics were stopped last night due to lack of infectious etiology found. Patient remains afebrile. Continue to observe off antibiotics. Patient denies any new physical complaints. We will follow him as needed Documented By: Victor Manuel Reynolds MD 01/15/221219 Signed By: <Electronically signed by MD Victor Manuel Reynolds> 01/15/221220 [facility] Work Phone: Progress note Author Raji Ennis [facility] January 15, 2022 4:51pm Note Date/Time January 15, 2022 4:51pm [facility] [address] [place] [address] Hospitalist Progress Note Signed Patient: Irineo Wallis Jr MR# : [id number] : 1940 Acct:[id number] Age/Sex: 81 / M Adm Date: 2 Loc: Room: [address] [place] [address] Type: ADM IN Attending Dr: Raji Ennis MD Copies to: ~ Date of Service: 01/15/2022 Subjective Subjective Narrative: patient seen and examined. No acute overnight events per RN. Patient is awake,alert and oriented x3. Complaining of low back pain intermittently which is chronic but denies any other symptoms. he is hemodynamically stable and is afebrile. Exam Physical Exam Vital Signs: Temp Pulse Resp BP Pulse Ox O2 Del Method O2 Flow Rate 97.8 F 68 18 113/61 96 Room Air 1 01/15/22 08:00 01/15/22 11:41 01/15/22 11:41 01/15/22 11:41 01/15/22 11:41 01/15/22 11:41 01/13/22 16:00 Narrative: General: awake, alert and oriented. HEENT: Normocephalic, atraumatic, PERRLA, normal mucosa Cardiovascular: Irregular rate and rhythm , S1-S2 heard, no murmurs or gallops Lungs: No wheezing or rhonchi heard Gastrointestinal: Soft, nontender, bowel sounds heard Extremities: 1+ edema in legs bilaterally Neurological: no sensory or motor deficit Skin: Dry and warm, no rashes or lesions Psych: Normal mood and affect Objective Lab Results CBC & Chem 7: 01/15/22 06:18 01/15/22 06:18 Microbiology Results Microbiology 01/12/22 13:30 Blood - Left Antecubital Blood Culture - Preliminary No Growth 3 Days 01/12/22 13:33 Blood - Left Hand Blood Culture - Preliminary No Growth 3 Days 01/13/22 13:50 Chou Port Urine Culture - Final No Growth 2 Days Meds Allergies and Active Meds Allergies fentanyl Allergy (Verified 01/09/22 09:38) Dizziness indomethacin [From Indocin] Allergy (Verified 01/09/22 09:38) Dizziness Penicillins Allergy (Verified 01/09/22 09:38) Weakness zolpidem [From Ambien] Adverse Reaction (Verified 01/09/22 09:38) Confusion Active Meds: Active Medications Generic Name Dose Route Start Last Admin Trade Name Freq PRN Reason Stop Dose Admin Acetaminophen 650 mg 01/09/22 14:41 01/14/22 19:57 Acetaminophen 325 Mg Tablet PO 01/09/23 14:40 650 mg Q6HR PRN Administration Pain Scale 1 - 3 or fever Allopurinol 300 mg 01/10/22 09:00 01/15/22 08:46 Allopurinol 300 Mg Tablet PO 01/10/23 08:59 300 mg DAILY ANIBAL Administration Apixaban 5 mg 01/09/22 21:00 01/15/22 08:46 Apixaban 5 Mg Tablet PO 01/09/23 20:59 5 mg BID ANIBAL Administration Atorvastatin Calcium 40 mg 01/09/22 22:00 01/14/22 21:32 Atorvastatin 40 Mg Tablet PO 01/09/23 21:59 40 mg QHS ANIBAL Administration Bisacodyl 10 mg 01/09/22 14:41 Bisacodyl 10 Mg Supp.Rect DC 01/09/23 14:40 DAILY PRN Constipation Bisacodyl 10 mg 01/09/22 14:41 01/15/22 14:16 Bisacodyl 5 Mg Tablet.Dr PO 01/09/23 14:40 10 mg DAILY PRN Administration Constipation Bumetanide 1 mg 01/14/22 16:00 01/15/22 08:46 Bumetanide 1 Mg Tablet PO 01/14/23 15:59 1 mg DAILY@0800 ANIBAL Administration Docusate Sodium 100 mg 01/09/22 21:00 01/15/22 08:46 Docusate 100 Mg Capsule PO 01/09/23 20:59 100 mg BID ANIBAL Administration Fluticasone Propionate 1 spray 01/09/22 15:17 Fluticasone Propionate [place] 120 [place]/16 Gm Bottle NARES-BOTH 01/09/23 15:16 QHS PRN Nasal Congestion Magnesium Sulfate 2 gm in 50 mls @ 25 mls/hr 01/09/22 14:41 Magnesium Sulf 2gm-*Swfi* IV 01/09/23 14:40 DAILY PRN Magnesium Level < 1.5 Levothyroxine Sodium 150 mcg 01/10/22 06:30 01/15/22 06:38 Levothyroxine 150 Mcg Tablet PO 01/10/23 06:29 Not Given DAILY@0630 ANIBAL Magnesium Hydroxide 30 ml 01/09/22 14:41 01/15/22 14:14 Magnesium Hydroxide Susp 30 Ml Udc PO 01/09/23 14:40 30 ml BID PRN Administration Constipation Magnesium Oxide 400 mg 01/10/22 09:00 01/15/22 08:46 Magnesium Oxide 400 Mg Tablet PO 01/10/23 08:59 400 mg DAILY ANIBAL Administration Nitroglycerin 0.4 mg 01/09/22 14:41 Nitroglycerin 0.4 Mg Tab.Subl SUBLINGUAL 01/09/23 14:40 Q5MIN.X3 PRN Chest Pain Pom Eszopiclone 3 Mg 3 mg 01/11/22 22:00 01/14/22 21:32 Tablet PO 01/11/23 21:59 3 mg HS ANIBAL Administration Nystatin 1 applic 01/09/22 22:00 01/15/22 14:14 Nystatin 100,000 Unit/Gram Powder 15 Gm Bottle TOPICAL 01/09/23 21:59 1 applic TID ANIBAL Administration Ondansetron HCl 4 mg 01/09/22 14:41 Ondansetron 4 Mg/2 Ml Vial IV-PUSH 01/09/23 14:40 Q8H PRN Nausea And Vomiting Oxycodone/Acetaminophen 1 tab 01/13/22 14:26 01/15/22 04:13 Oxycodone/Acetaminophen 5-325 Mg Tablet PO 1 tab Q8H PRN Administration Moderate Pain Potassium Chloride 20 meq 01/09/22 14:41 01/11/22 08:43 Potassium Chloride Er 20 Meq Tab.Er.Prt PO 01/09/23 14:40 20 meq DAILY PRN Administration Hypokalemia Potassium Chloride 40 meq 01/09/22 14:41 Potassium Chloride Er 20 Meq Tab.Er.Prt PO 01/09/23 14:40 DAILY PRN Hypokalemia Potassium Chloride 20 meq 01/09/22 21:00 01/14/22 21:32 Potassium Chloride Er 20 Meq Tab.Er.Prt PO 01/09/23 20:59 20 meq QPM ANIBAL Administration Sodium Chloride 0 ml 01/09/22 09:38 01/10/22 23:31 Sodium Chloride 0.9 % 10 Ml Syringe IV-PUSH 01/09/23 09:37 10 ml PRN PRN Administration Flush Sodium Chloride 0 ml 01/09/22 22:00 01/15/22 14:19 Sodium Chloride 0.9 % 10 Ml Syringe IV-PUSH 01/09/23 21:59 10 ml QSHIFT ANIBAL Administration A&P - Hospitalist Assessment/Plan (1) 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 Antibiotics discontinued as blood cultures have been negative Cardiology on board, digoxin and Coreg has been on hold with no signs of bradycardia. Plan to reinitiate Coreg in near future. Echocardiogram showed normal EF with mild to moderate left ventricular hypertrophy, moderate pulmonary hypertension. Carotid Doppler showed no hemodynamically significant stenosis in either extracranial ICA, both vertebral arteries are patent with antegrade flow MRI of the lumbar spine showed multilevel degenerative changes with mild to moderate canal stenosis. CT hip showed no acute bony findings Continue Bumex 1 mg p.o. daily Monitor electrolytes Fall precautions PT/OT DVT prophylaxis Patient accepted to SNF, transportation set up for tomorrow. Documented By: Raji Ennis MD 01/15/22 [id number] Signed By: <Electronically signed by Raji Ennis MD> 01/15/22 [id number] [facility] Work Phone: Summary Purpose Family History No Family History Records FoundUnknown Family Member Name Dates Details Family history of ASCVD: Mot her(V17.49, Z82.49) Status:Active Unknown Family Member Name Dates Details Family history of ASCVD: Mot her(V17.49, Z82.49) Status:Active Unknown Family Member Name Dates Details Family history of ASCVD: Mot her(V17.49, Z82.49) Status:Active Unknown Family Member Name Dates Details Family history of ASCVD: Mot her(V17.49, Z82.49) Status:Active Unknown Family Member Name Dates Details Family history of ASCVD: Mot her(V17.49, Z82.49) Status:Active Unknown Family Member Name Dates Details Family history of ASCVD: Mot her(V17.49, Z82.49) Status:Active Unknown Family Member Name Dates Details Family history of ASCVD: Mot her(V17.49, Z82.49) Status:Active Unknown Family Member Name Dates Details Family history of ASCVD: Mot her(V17.49, Z82.49) Status:Active Relationship Condition Age at Onset Recorded Date/T jc Not Specified Alzheimer's disease Unknown History of coronary artery bypass surgery Unknown Coronary artery disease Unknown Myocardial infarction Unknown brother Myocardial infarction Unknown father Hepatic cirrhosis Unknown sister Malignant neoplasm Unknown Unknown Family Member Name Dates Details Family history of ASCVD: Mot her(V17.49, Z82.49) Status:Active Unknown Family Member Name Dates Details Family history of ASCVD: Mot her(V17.49, Z82.49) Status:Active Unknown Family Member Name Dates Details Family history of ASCVD: Mot her(V17.49, Z82.49) Status:Active Unknown Family Member Name Dates Details Family history of ASCVD: Mot her(V17.49, Z82.49) Status:Active Unknown Family Member Name Dates Details Family history of ASCVD: Mot her(V17.49, Z82.49) Status:Active Unknown Family Member Name Dates Details Family history of ASCVD: Mot her(V17.49, Z82.49) Status:Active Unknown Family Member Name Dates Details Family history of ASCVD: Mot her(V17.49, Z82.49) Status:Active Unknown Family Member Name Dates Details Family history of ASCVD: Mot her(V17.49, Z82.49) Status:Active Unknown Family Member Name Dates Details Family history of ASCVD: Mot her(V17.49, Z82.49) Status:Active Unknown Family Member Name Dates Details Family history of ASCVD: Mot her(V17.49, Z82.49) Status:Active Unknown Family Member Name Dates Details Family history of ASCVD: Mot her(V17.49, Z82.49) Status:Active Unknown Family Member Name Dates Details Family history of ASCVD: Mot her(V17.49, Z82.49) Status:Active Advance Directives No Advanced Directives Records Found Advance Directive Response Recorded Date/ Time Advance Directives No January 07, 2017 10:09am Advance Directive Response Recorded Date/ Time Advance Directives No January 07, 2017 9:09am Chief Complaint * I am doing pretty good' * IRINEO WALLIS is being seen for a 6 month follow-up of atrial fibrillation, cardiomyopathy and hypertension. * Patient is ambulatory with cane and steady gait. * Patient was last evaluated by Dr. Mcintyre June 2020. * He reports non-cardiovascular hospitalization. To get lumbar RFA in near future. * Patient reports overall state of cardiovascular health as 'fine * Daily activity level: mow lawn, ADLs, mop floors. no stairs * Denies any change in exercise capacity or functional tolerance. * No concerns ambulating in from PL. * Reports being the same as last office f/u. * I am doing pretty good' * IRINEO THOMASONDENIS is being seen for a 6 month follow-up of atrial fibrillation, cardiomyopathy and hypertension. * Patient is ambulatory with cane and steady gait. * Patient was last evaluated by Dr. Mcintyre June 2020. * He reports non-cardiovascular hospitalization. To get lumbar RFA in near future. * Patient reports overall state of cardiovascular health as 'fine * Daily activity level: mow lawn, ADLs, mop floors. no stairs * Denies any change in exercise capacity or functional tolerance. * No concerns ambulating in from PL. * Reports being the same as last office f/u. * IRINEO WALLIS is being seen for a 6 month follow-up of. * 81-year-old gentleman who returns for annual follow-up he is doing well he has no cardiovascular complaints, he does have a chronic left greater than right lower extremity edema and chronic atrial fibrillation is rate controlled. He remains on Eliquis with no bleeding or thromboembolic events. He remains on carvedilol, digoxin and Entresto and Bumex and atorvastatin again with no hospitalizationsfor heart failure or ACS or arrhythmic events. * Heart catheterization in 2016 revealed minimal coronary disease and severe LV dysfunction after institution of appropriate guideline directed medical therapies, follow-up MUGA scan in June 2016 revealed ejection fraction of 50%., Confirmed by echocardiogram in December 2019 with ejection fraction of 50 to 55% * Recommendations: Continue current therapies follow-up in 1 year * Hospital f/u: 'seem to be doing fine' * IRINEO WALLIS is being seen for follow-up of a hospitalization for dizziness. * Hospital f/u: 'seem to be doing fine' * IRINEO WALLIS is being seen for follow-up of a hospitalization for dizziness. * Patient presents to the office ambulatory with wheeled walker and steady gait. Last evaluated in clinic Dr. Mcintyre July 2021. * January 2022 hospitalized at [facility] due to fall, noted bradycardia with3.0-second pause he was seen in consultation by Dr. rDew. He has carvedilol 6.25 mg and digoxin were discontinued. Off of these remaining telemetry did not show any significant bradycardia or high-grade heart block. His dose of Entresto was also discontinued due to hypotension. * Inpatient echocardiogram LVEF 60 to 65%. * Creatinine 1.5. * Patient presents to the office today were overall reports feeling better . Does do light housework. Has had no recurrent falls. He goes to physical therapy 3 times a week, he denies any type of dizziness or lightheadedness. He seems to have more energy. He describes very rare postural orthostatic h ypotension in the bottom presser. He denies any palpitations or fast heartbeats. * IRINEO WALLIS is being seen for an annual follow-up of. * 81-year-old gentleman returns for follow-up he is doing well he has no cardiovascular complaints other than noncardiac related osteoarthritis issues and ambulatory debility. He remains independent, affable and. * He has a history of nonischemic cardiomyopathy with mild left ventricular dysfunction, atrial fibrillation, borderline sick sinus syndrome with no pacemaker and the above-mentioned arthritis. He has right greater than left chronic edema that is unchanged due to history of prior knee replacements, hip replacements and back surgery. * He has no angina, hospitalizations, denies any worsening of his edema or shortness of breath. He did have some moderate bradycardia at one point and carvedilol and digoxin were discontinued by Dr. Drew * NYHA classification is class II/C * Recommendations, follow-up in 1 year on same therapy Chief Complaint and Reason for Visit Chief Complaint MEDICARE/[facility] Chief Complaint E03.9 I10 I48.91 fall Reason for Visit Acute decompensated heart failure Acute exacerbation of chronic low back pain Elevated troponin Fall Hypoxemia Chief Complaint E03.9 I10 I48.91 fall Reason for Visit Acute decompensated heart failure Acute exacerbation of chronic low back pain [id number] Acute respiratory failure with hypoxia Altered mental status Anasarca Bladder retention Bradycardia Constipation Difficulty walking Elevated troponin Fall Falls frequently Fever Generalized weakness HFrEF (heart failure with reduced ejection fraction) Hypoxemia Impaired activities of daily living Myxopapillary ependymoma Pleural effusion Sleep apnea Atrial fibrillation Hypertension Chief Complaint E03.9 I10 I48.91 fall Z79.01 I48.20 MEDICARE/gneralized weakness Reason for Visit Acute decompensated heart failure Acute exacerbation of chronic low back pain [id number] Acute respiratory failure with hypoxia Altered mental status Anasarca Bladder retention Bradycardia Constipation Difficulty walking Elevated troponin Fall Falls frequently Fever Generalized weakness HFrEF (heart failure with reduced ejection fraction) Hypoxemia Impaired activities of daily living Myxopapillary ependymoma Pleural effusion Sleep apnea Atrial fibrillation Hypertension Chief Complaint fall Z79.01 I48.20 MEDICARE/gneralized weakness Reason for Visit Acute decompensated heart failure Acute exacerbation of chronic low back pain [id number] Acute respiratory failure with hypoxia Altered mental status Anasarca Bladder retention Bradycardia Constipation Difficulty walking Elevated troponin Fall Falls frequently Fever Generalized weakness HFrEF (heart failure with reduced ejection fraction) Hypoxemia Impaired activities of daily living Myxopapillary ependymoma Pleural effusion Sleep apnea Atrial fibrillation Hypertension Additional Source Comments (unrecognized sect ion and content) No Status Records FoundNo Status Records FoundNo Status Records FoundNo Status Records FoundNo Status Records FoundNo Status Records Found INFORMATION SOURCE (unrecogn ized section and content) DATE CREATED AUTHOR 08/30/2017 [facility] DATE CREATED AUTHOR AUTHOR'S ORGANIZ ATION 07/09/2022 [facility] DATE CREATED AUTHOR AUTHOR'S ORGANIZ ATION 07/09/2022 [facility] DATE CREATED AUTHOR AUTHOR'S ORGANIZ ATION 07/16/2022 [facility] DATE CREATED AUTHOR AUTHOR'S ORGANIZ ATION 09/17/2022 [facility] DATE CREATED AUTHOR AUTHOR'S ORGANIZ ATION 01/13/2023 [facility] REASON FOR VISIT (unrecogniz ed section and content) 6 month Follow uprefillRefil lsNeeds refillREVIEW LABSRefillClinical Acute Medicineblood pressure checkClinical Acute Illnessblood pressure checkClinicalScraped Arm from FallNO SHOWback/leg pain, Hosp/rehab >month agorefillsRefillsfollow up lumbar degenerationRefillsRefills3 month Follow upRefillsreview labsRefillsRefill Lunesta- bpk to send rxClinical Care Teams (unrecognized sec tion and content) Team Status: Active Member Role Status Dates Feliciano Ga , DO Primary Care Provider Active Team Status: Inactive Member Role Status Dates Feliciano Ga , DO Primary Care Provider, Attending Provi percy Active Team Status: Inactive Member Role Status Dates Feliciano Ga , DO Primary Care Provider Active Monserrat Rodarte NP-C Attending Provider Active Team Status: Active Member Role Status Dates Feliciano Ga , DO Primary Care Provider Active Victor Manuel Paiz MD Emergency Provider Active Dharmesh Zavala , DO Admit Provider, Attending Pr ovider Active Team Status: Inactive Member Role Status Dates Feliciano Ga , DO Primary Care Provider Active Victor Manuel Paiz MD Emergency Provider Active Dharmesh Zavala , DO Admit Provider Active Shyenedina Mcdonough Other Provider Active Meme De La Torre , DO Other Provider Active Mani Dickens MD Other Provider Active Matheus Rizvi , DO Other Provider Active Hoa Knight , ANP-BC Other Provider Active Vikas Mane , DO Other Provider Active Jen Degroot APRN Other Provider Active Raji Ennis MD Attending Provider Active Victor Manuel Reynolds MD Other Provider Active Team Status: Inactive Member Role Status Dates Feliciano Ga , DO Primary Care Provider Active Enedelia K [place] , [employer] Attending Provider Active Team Status: Active Member Role Status Dates Feliciano Ga , DO Primary Care Provider Active Feliciano Ga , DO [facility] Attending Provider Active Team Status: Inactive Member Role Status Dates Feliciano Ga , DO Primary Care Provider Active Feliciano Ga , DO [facility] Attending Provider Active Goals (unrecognized section and content) Goals may be documented in a n alternate section FOR RECORDS PERTAINING TO PATIENTS WHO ARE OR HAVE BEEN ENROLLED IN A CHEMICAL DEPENDENCY/SUBSTANCEABUSE PROGRAM, SOME INFORMATION MAY BE OMITTED. This clinical summary was aggregated from multiple sources. Caution should be exercised in using it in the provision of clinical care. This summary normalizes information from multiple sources, and as a consequence, information in this document may materially change the coding, format and clinical context of patient data. In addition, data may be omitted in some cases. CLINICAL DECISIONS SHOULD BE BASED ON THE PRIMARY CLINICAL RECORDS. [employer] [facility]. provides no warranty or guarantee of the accuracy or completeness of information in this document.
[2023-03-14 09:29] VITALS: BP 144/86; PULSE 89; RESP 16; TEMP 36.3; O2SAT 98
[2023-03-14 09:54] VITALS: BP 143/80; PULSE 101; RESP 18; O2SAT 96
[2023-03-14] MEDS: BUPIVACAINE HCL 0.25% PF 25 MG/10 ML VIAL INJ (09:54)
[2023-03-14] MEDS: LIDOCAINE HCL 2% PF 100 MG/5 ML VIAL INJ (09:54)
[2023-03-14 09:56] VITALS: BP 157/91; PULSE 102; RESP 18; O2SAT 94
--- NOTE | 2023-03-14 09:58 | W.PM.PROCNOT ---
Date of procedure: 03/14/23 Pre-op diagnosis: Lumbar spondylosis Post-op diagnosis: same as pre-op Procedure: Procedure: Bilateral L3-4, L4-5 medial branch block Medications: Bupivacaine 0.25% 6cc The patient was seen and examined in the preoperative holding area.? An informed consent was obtained and placed on the chart.? The patient was brought to the medical procedure unit and placed in the prone position.? A timeout was completed verifying correct patient, procedure site, positioning, plan, and special equipment.? Using aseptic technique, the needle was placed at left L3. Under direct fluoroscopic visualization a Quincke-tipped spinal needle was advanced to the junction of the superior articulating process with the transverse process at the designated medial branch segment.? Preceded by negative aspiration, the above-mentioned injectate was placed in 1 mL aliquots.? The procedure was repeated at left L4, 5.? The needle was removed and insertion site was covered. The same procedure, at the same levels, was completed on the right side. The patient was taken to the postprocedural recovery area and monitored for an appropriate length of time before found suitable for discharge in the company of a responsible adult. Surgeon: Diana Price Pathology: none sent Condition: stable Disposition: no change
== END 2023-03-14 10:04 | disposition home or self-care (01) ==
PROVIDERS: Visit Provider Anesthesiology
DX: M47.816 Spondylosis without myelopathy or radiculopathy, lumbar region (principal)
CPT/HCPCS: 64493; 64494; J0665

== ENCOUNTER 2023-03-28 08:33 | Outpatient (OUT) | payer MEDICARE, BC, SELFPAY ==
--- NOTE | 2023-03-24 11:42 | P.CN_ITS ---
Consult Note: HPI Data of Consult Patient: known to practice within the last 3 years Requesting Physician: Silvia Kimble NP Primary Care Provider: Non-Staff Physician, MD Consult Narrative Reason for consult: f/u Narrative: Irineo Mendes a pleasant 82 year old male presents for evaluation and management of chronic low back pain. Pain today 5/10 in low back, increases to 7/10 with activity and bending. Patient recently underwent bilateral L3-4 L4-5 MBB #1 with 90% immediate improvement in pain and functional ability that lasted for a few hours. Patient would like to discuss moving forward with bilateral L3- 4 L4-5 MBB #2 working towards thermal RFA. cc:: CC: Silvia Kimble NP Review of Systems ROS Status of ROS 10 or more systems reviewed and unremark able except as noted in history and below Musculoskeletal Reports: back pain and joint pain PFSH PFSH Medical History CHF (congestive heart failure) ?I50.9 - Heart failure, unspecified (ICD-10) Cataracts, bilateral ?H26.9 - Unspecified cataract (ICD-10) Low back pain ?M54.50 - Low back pain, unspecified (ICD-10) Hypothyroid ?E03.9 - Hypothyroidism, unspecified (ICD-10) Hypercholesterolemia ?E78.00 - Pure hypercholesterolemia, unspecified (ICD-10) Afib ?I48.91 - Unspecified atrial fibrillation (ICD-10) Surgical History History of total knee arthroplasty ?Z96.659 - Presence of unspecified artificial knee joint (ICD-10) History of hip replacement ?Z96.649 - Presence of unspecified artificial hip joint (ICD-10) Previous back surgery ?Z98.890 - Other specified postprocedural states (ICD-10) History of shoulder surgery ?Z98.890 - Other specified postprocedural states (ICD-10) Meds Home Medications and Allergies Home Medications Medication Instructions Recorded Confirmed Type acetaminophen 500 mg oral powder 1,000 mg PO BID PRN pain 01/06/23 03/14/23 History packet (Tylenol Extra Strength) allopurinol 300 mg tablet 300 mg PO DAILY 01/06/23 03/14/23 History apixaban 5 mg tablet (Eliquis) 5 mg PO BID 01/06/23 03/14/23 History atorvastatin 40 mg tablet 40 mg PO DAILY 01/06/23 03/14/23 History bumetanide 1 mg tablet 1 mg PO DAILY 01/06/23 03/14/23 History eszopiclone 3 mg tablet 3 mg PO BEDTIME 01/06/23 03/14/23 History levothyroxine 150 mcg capsule 150 mcg PO DAILY 01/06/23 03/14/23 History magnesium oxide 400 mg PO DAILY 01/06/23 03/14/23 History oxycodone-acetaminophen 5 mg-325 1 tab PO BID 01/06/23 03/14/23 History mg tablet (Endocet) potassium chloride 20 mEq 20 meq PO DAILY 01/06/23 03/14/23 History tablet,extended release(part/cryst) pramipexole 0.25 mg tablet 0.25 mg PO DAILY 01/06/23 03/14/23 History (Mirapex) trazodone 50 mg tablet 50 mg PO DAILY 01/06/23 03/14/23 History Allergies Allergy/AdvReac Type Severity Reaction Status Date / Time fentanyl [From Duragesic] Allergy Unknown Verified 03/14/23 09:27 indomethacin [From Indocin] Allergy Unknown Verified 03/14/23 09:27 Penicillins Allergy Unknown Verified 03/14/23 09:27 zolpidem [From Ambien] Allergy Verified 03/14/23 09:27 Exam Constitutional Documenting provider has reviewed patient's vital signs: yes Common normals: no apparent distress, oriented x3, healthy appearing, alert and well nourished General appearance: cooperative [facility] Common normals: normocephalic, hearing grossly normal bilaterally and moist oral mucous membranes Head and scalp: normocephalic Eye Common normals: PERRL Pupil: PERRL Neck & C-Spine Common normals: full ROM General: normal visual inspection Chest Common normals: inspection of chest normal Respiratory Common normals: normal respiratory effort, no retractions and no use of accessory muscles Back & Pelvis Lumbar spine/lower back: ROM limited, pain with ROM and straight leg raise negative bilaterally Other: positive facet loading no radicular symptoms sensation intact in BLE 5/5 strength Extremity Common normals: normal to inspection and full ROM Neuro Common normals: oriented x3, CN's II-XII intact bilaterally, moves all extremities, no focal motor deficits, no sensory deficits noted and deep tendon reflexes 2+ bilaterally Sensorium/orientation: alert Motor exam: strength 5/5 throughout and no movement abnormalities noted Psych Common normals: mental status grossly normal, thought process normal, coopera tive, affect normal, speech normal and activity/motor behavior normal Speech: normal speech Thought process: normal thought process Assessment and Plan Assessment and Plan (1) Lumbar spondylosis: Assessment and Plan: The patient has had over 3 months of moderate to severe low back pain with functional impairment and inadequate response to conservative care including NSAIDS (unless there are contraindication such as concurrent blood thinners), multiple oral or topical pain medications, and home exercise program/physical therapy.? Patient has completed >6 weeks of guided home exercise program and/or formal physical therapy program without relief of their symptoms.? I have reviewed the imaging of the lumbar spine and no red flags were identified.? The imaging reveals radiographic findings consistent with lumbar spondylosis The Oswestry Disability Index was completed, and the patient scored a 24%.? The patient noted the following:?? severe pain, pain with walking, pain with activity and while seated We discussed the risks and benefits of the procedure with the patient, and we are NOT planning on using sedation as outlined in the guidelines from Medicare unless there is a documented reason that sedation would be strongly recommend ed.?? ?The procedure will be completed with fluoroscopic guidance.? (2) Lumbar stenosis with neurogenic claudication: Plan bilateral L3-4 L4-5 MBB #2 under fluoroscopy working towards thermal RFA continue HEP as tolerated continue current medications f/u after each injection
--- OUTSIDE RECORDS SUMMARY | 2023-03-28 08:43 | XMS_ITS | CCD ---
Author Name Unknown Address [address] [place] [address] Organization [facility] Care Team Providers Care Telegraph And Teletype Operator Name Role Phone Dontrell Good W Unavailable Unavailable Rice, Dontrell W Unavailable Unavailable Rice, Dontrell W Unavailable Unavailable NONE, XXXX Unavailable Unavailable Feliciano Ga Unavailable Unavailable Unavailable Feliciano Ga Unavailable DO Feliciano Ga Primary Care Provider TIFFANY Rodarte-Severiano Malone Attending Provider [phone] DO Feliciano Ga Attending Provider DO Feliciano Ga Primary Care Provider DO Feliciano Ga Attending Provider [phone] MD Victor Manuel Paiz Emergency Provider DO Dharmesh Zavala Admit Provider [phone] DO Dharmesh Zavala Attending Provider Shy Mcdonough Other Provider Unavailable DO Meme De La Torre Other Provider MD Mani Dickens Other Provider DO Matheus Rizvi Other Provider JESSICA Knight- Hoa Other Provider DO Vikas Mane Other Provider RIKY Degroot Other Provider MD Raji Ennis Attending Provider [phone] MD Victor Manuel Reynolds Other Provider RIKY Mix Attending Provider [phone] Kuns, DO Feliciano Myers Attending Provider Kuns, DO Feliciano Primary Care Provider Kuns, DO Feliciano Myers Attending Provider Kuns, Dr. Feliciano Parker Primary Care Unavaila cb Gomez, Dane San Attending Rula Gomez, Ms. Enedelia San Referring Unavai noe Ga, Dr. Feliciano Parker Primary Care Unavaila cb Gomez, Dane Enedelia Raeganshelia San Attending Rula Gomez, Dane Enedeliadano San Referring Unavai labfrederic Ga, Dr. Feliciano Parker Primary Care Unavaila ble [...] Care Unavaila ble KOSTA ., DR TROY Whitmore Admitting Unavailable BRAMBILA ., DR TROY Whitmore Consulting Unavailable BRAMBILA ., DR TROY Whitmore Attending Unavailable KUNS, DR WIGGINS Primary Care Unavailable BRAMBILA ., DR TROY Whitmore Admitting Unavailable BRAMBILA ., DR TROY Whitmore Attending Unavailable RODARTE ., MONSERRAT Consulting Unavailable HARMEET, DR WHITTINGTON Primary Care Unavailable BRAMBILA ., DR TROY Whitmore Admitting Unavailable BRAMBILA ., DR TROY Whitmore Consulting Unavailable BRAMBILA ., DR TROY Whitmore Attending Unavailable KUNCatie, DR WHITTINGTON Primary Care Unavailable RODARTE ., MONSERRAT Consulting Unavailable HARMEET, DR WHITTINGTON Consulting Unavailable BRAMBILA ., DR TROY Whitmore Admitting Unavailable BRAMBILA ., DR TROY Whitmore Consulting Unavailable BRAMBILA ., DR TROY Whitmore Attending Unavailable KUNS, DR WHITTINGTON Primary Care Unavailable KUNCatie, DR WHITTINGTON Consulting Unavailable HALKER ., DOMINIC Attending Unavailable HALKER ., DOMINIC Admitting Unavailable KUNCatie, DR WHITTINGTON Primary Care Unavailable KUNS, DR WHITTINGTON Primary Care Unavailable BRAMBILA ., DR TROY Whitmore Admitting Unavailable BRAMBILA ., DR TROY Whitmore Attending Unavailable RODARTE ., MONSERRAT Consulting Unavailable KUNCatie, DR WHITTINGTON Primary Care Unavailable BRAMBILA ., DR TROY Whitmore Attending Unavailable BRAMBILA ., DR TROY Whitmore Admitting Unavailable BRAMBILA ., DR TROY Whitmore Admitting Unavailable KUNS, DR WHITTINGTON Primary Care Unavailable BRAMBILA ., DR TROY Whitmore Attending Unavailable RODARTE ., MONSERRAT Consulting Unavailable KUNS, DR WHITTINGTON Consulting Unavailable BRAMBILA ., DR TROY Whitmore Admitting Unavailable BRAMBILA ., DR TROY Whitmore Attending Unavailable RODARTE ., MONSERRAT Consulting Unavailable HARMEET, DR WHITTINGTON Primary Care Unavailable EDILMA MANDEL Attending Unavailable TEQUILA, EDILMA Admitting Unavailable RONALD ISRAEL Consulting Unavailable KUNCatie, DR WIGGINS Primary Care Unavailable EDILMA MANDEL Consulting Unavailable BRAMBILA ., DR TROY Whitmore Admitting Unavailable BRAMBILA ., DR TROY Whitmore Consulting Unavailable BRAMBILA ., DR TROY Whitmore Attending Unavailable KUNS, DR WHITTINGTON Primary Care Unavailable LAKSHMIPATHY ., NARENDRANATH Admitting Nichelle vailable LAKSHMIPATHY ., NARENDRANATH Consulting Nichelle vailable HARMEET, DR WHITTINGTON Primary Care Unavailable LAKSHMIPATHY ., NARMAMIATH Attending Nichelle vailable HALKER ., DOMINIC Consulting Unavailable BRAMBILA ., DR TROY Whitmore Admitting Unavailable BRAMBILA ., DR TROY Whitmore Attending Unavailable RODARTE ., MONSERRAT Consulting Unavailable HARMEET, DR WIGGINS Primary Care Unavailable Kuncatie, DO Wiggins Primary Care Provider Kuns, DO Wiggins Attending Provider [phone] Kuns, Feliciano Primary Care Unavailable Kuns, Feliciano P Admitting Unavailable KunsFeliciano P Attending Unavailable Kuns, Feliciano Primary Care Unavailable Enedelia Mix Admitting Unavailable Enedelia Mix Attending Unavailable Kuncatie, Feliciano Attending Unavailable Kuns, Feliciano Admitting Unavailable Kuns, Feliciano Primary Care Unavailable Kuns, Feliciano Primary Care Unavailable Raymon Raji Attending Unavailable Sciaradiane Shy Consulting Unavailable Sailaja Zavalaopher Admitting Unavailabl e Meme De La Torre [...] sources) fentaNYL; Translations: [fentaNYL] Drug Allergy 11-09-19 AOF, loopy , Dizziness [facility] Repository (20 sources) indomethacin; Translations: [Indocin] Drug Allergy Other [facility] Repository (20 sources) penicillin; Translations: [penicillin] Drug Allergy anaphylaxis [facility] Repository (1 source) Duragesic-25; Translations: [Duragesic-25] Propensity to adverse reactions (disorder) [facility] Repository (1 source) FentaNYL Matrix; Translations: [FentaNYL Matrix] Propensity to adverse reactions (disorder) AOF [facility] Repository (20 sources) fentaNYL; Translations: [Duragesic-75 PT72] Drug Allergy Dizziness, Nausea [facility] Cashback Chintai DO Work Phone: (20 sources) Penicillins; Translations: [Penicillins] Allergy to drug (finding) 11-09-19 Other, Weakness [facility] (20 sources) zolpidem; Translations: [Ambien] Drug Allergy memory loss [facility] [employer]TRglobal[employer]thersys 250 DO Work Phone: (20 sources) Indomethacin Drug Allergy 11-09-19 Unknown, Dizziness [facility] (20 sources) Duragesic-75 Drug allergy nausea [employer] Other (8 sources) zolpidem; Translations: [zolpidem] Drug Allergy 12-25-19 20 Confusion [facility] (1 source) fentaNYL Drug Allergy [facility] Repository (2 sources) Penicillins Drug allergy (disorder) 07-26-19 15 [facility] Repository (1 source) zolpidem Drug Allergy [facility] Repository (1 source) Indomethacin Drug Allergy 01-10-20 [facility] Repository (1 source) Penicillins Drug allergy (disorder) 01-10-20 [facility] Repository Medications Current Medications Medication [...] 30-40mmhg size xs. 5 gvaris, [id number], [place] [id number] Sep, Active Start: 09-28-[address] ockings 30-40 mmhg as directed knee high as directed 2 pair Sep, Active docusate sodium 100 mg oral capsule (20 sources) Start: 11-06-2019 End: 01-04-2020 take 1 capsule by mouth twice daily Docusate Sodium (Dok) 100 mg Capsule Active 100 MG PO Twice daily 60 January 04, 2020 12:00am take 1 capsule by mo [facility] every twenty-four hours Colace 100 MG 1 [...] a day Aug, Active Start: 08-31-2021 Synthroid 150 MCG 1 tablet [...] Ac tive mupirocin 0.02 mg/mg topical ointment (15 sources) RNA Synthetase Inhibitor Antibacterial Start: 01-07-2022 Mupirocin 2 % 1 application Externally Twice a day Jan, Active nystatin 100 unt/mg topical powder (13 sources) Polyene Antifungal Start: 02-09-2022 Nystatin 834127 UNIT/GM 1 application Externally Twice a day for 30 days Feb, Active microencapsulated potassium chloride 20 meq [...] 12:33pm Start: 11-02-2016 take 1 tablet by ck th once daily K-Dur 20 mEq 1 tablet [...] by mouth every six hours Hydrocodone-Acetami nophen ([place]) 5-325 mg tablet Discontinued 1 TAB PO Q6H November 06, 2019 November 06, 2019 9:42am Start: 11-06-2019 End: 11-06-2019 take 1 tablet by mouth every six hours Hydrocodone-Acetaminophen ([place]) 5-325 mg tablet Discontinued 1 TAB PO Q6H November 06, 2019 November 06, 2019 8:42am Start: 11-06-2019 End: 11-06-2019 take 1 tablet by mouth every six hours Hydrocodone-Acetaminophen ([place]) 5-325 mg tablet Discontinued 1 TAB PO Q6H November 06, 2019 November 06, 2019 8:42am Start: 11-06-2019 End: 11-06-2019 take 1 tablet by mouth every six hours Hydrocodone-Acetaminophen ([place]) 5-325 mg tablet Discontinued 1 TAB PO Q6H November 06, 2019 November 06, 2019 8:42am Start: 11-06-2019 End: 11-06-2019 take 1 tablet by mouth every six hours Hydrocodone-Acetaminophen ([place]) 5-325 mg tablet Discontinued 1 TAB PO Q6H November 06, 2019 November 06, 2019 8:42am Start: 11-06-2019 End: 11-06-2019 take 1 tablet by mouth every six hours Hydrocodone-Acetaminophen ([place]) 5-325 mg tablet Discontinued 1 TAB PO Q6H November 06, 2019 November 06, 2019 9:42am Start: 11-06-2019 End: 11-06-2019 take 1 tablet by mouth every six hours Hydrocodone-Acetaminophen ([place]) 5-325 mg tablet Discontinued 1 TAB PO [...] hours Oxycodone-Acetaminophen Active 1 TAB PO Q8H 9 3 January 16, 2022 Start: 01-04-2020 End: 01-16-2022 take 1 tablet by mouth every four hours Oxycodone-Acetaminophen Discontinued 1 T AB PO Q4H 30 January 04, 2020 January 16, 2022 1:30pm Start: 11-06-2019 End: 01-04-2020 take 1 tablet by mouth every four to six hours Oxycodone-Acetaminophen (Percocet) 5-325 mg tablet Discontinued 1 - 2 TAB PO EVERY 4-6 HOURS 30 November 06, 2019 January 04, 2020 12:33pm take [...] mg Tablet Discontinued 1 TAB PO Daily 30 January 04, 2020 12:00am January 09, 2022 [...] 2020 12:00am January 09, 2022 2:11pm Lactulose Cony armstrong magnesium oxide 400 mg oral tablet (20 sources) Start: 02-15-2022 take 1 tablet by mouth once daily Magnesium Oxide 400 (240 Mg) MG Oral Tablet TAKE 1 TABLET BY MOUTH EVERY DAY Quantity: 90 Refills: 3 Ordered: 16-Feb-2022 Irineo Mcintyre DO Start : 15-Feb-2022 Active Start: 01-16-2021 take 1 tablet by ck th once daily Magnesium Oxide 400 MG Oral [...] October 17, 2019 12:00January 04, 2020 12:34pm sacubitril 24 mg / [...] [Coronary atherosclerosis of unspecified type of vessel, [place] or graft] Chronic Disorders of lipid metabolism [...] Episodic Other ear and sense organ disorders (13 sources) Tinnitus; Translations: [Tinnitus, unspecified ear] Episodic [...] 01-09-2022 Unclassified (1 source) Other specified dorsopathies, wmmorhci-wmowahb-aanq l region; Translations: [Other specified dorsopathies, nfsbbpub-psqvcqr-rggp l region] Onset: 09-28-2021 Urinary tract infections [...] 09-08-2022 ALT [Catalytic activity/Vol] 31 U/L 7-52 [facility] Albumin [Mass/volume] in Ser um or Plasma by Bromocresol green (BCG) dye binding methoOrdered By: Feliciano Ga on 09-08-2022 Albumin BCG dye [Mass/Vol] 4.1 g/dL 3.5-5.7 [facility] Alkaline phosphatase [Enzyma tic activity/volume] in Serum or PlasmaOrdered By: Feliciano Ga on 09-08-2022 ALP [Catalytic activity/Vol] 124 U/L 34-104 [facility] Aspartate aminotransferase [ Enzymatic activity/volume] in Serum or PlasmaOrdered By: Feliciano Ga on 09-08-2022 AST [Catalytic activity/Vol] 47 U/L 13-39 [facility] B-Type Natriuretic Peptideon 09-08-2022 Natriuretic peptide B (Bld) [Mass/Vol] 123.0 pg/mL High 5-100 [facility] Comment on above: Result Comment: PERF ORMED BY: [place] [address] PATHOLOGIST [employer]EL[employer] JAYY SANTA M.D. Performed By: #### C OVID-19 JOSE CREWS #### [address] Basophils Auto (Bld) [#/Vol] Ordered By: Feliciano Ga on 09-08-2022 Basophils (Bld) [#/Vol] 0.0 10*3/uL 0.0-0.2 [facility] Basophils/100 WBC Auto (Bld) Ordered By: Feliciano Ga on 09-08-2022 Basophils/100 WBC (Bld) 1.0 % . [facility] Bilirubin.total [Mass/volume ] in Serum or PlasmaOrdered By: Feliciano Ga on 09-08-2022 Bilirubin [Mass/Vol] 0.7 mg/dL 0.3-1.0 [facility] Calcium [Mass/volume] in Ser um or PlasmaOrdered By: Feliciano Ga on 09-08-2022 Calcium [Mass/Vol] 9.5 mg/dL 8.6-10.3 [facility] Carbon dioxide, total [Moles /volume] in Serum or PlasmaOrdered By: Feliciano Ga on 09-08-2022 CO2 [Moles/Vol] 30.7 mmol/L 21.0-31.0 [facility] Chloride [Moles/volume] in S sandor or PlasmaOrdered By: Feliciano Ga on 09-08-2022 Chloride [Moles/Vol] 107 mmol/L 98-107 [facility] Cholesterol [Mass/volume] in Serum or PlasmaOrdered By: Feliciano Ga on 09-08-2022 Cholesterol [Mass/Vol] 124 mg/dL 140-200 [facility] Comment on above: Chol less than 200 m g/dl low riskChol 201-239 mg/dl borderline riskChol 240 mg/dl and greater high risk Cholesterol in LDL Calc [Mas s/Vol]Ordered By: Feliciano Ga on 09-08-2022 Cholesterol in LDL [Mass/Vol] 44 mg/dL 0-100 [facility] Comment on above: LDL ATP III CLASSIFI CATIONLDL less than 100 mg/dL OptimalLDL 100-129 mg/dL Near or above optimalLDL 130-159 mg/dL Borderline highLDL 160-189 mg/dL HighLDL greater than 189 mg/dL Very high Cholesterol in VLDL Calc [Ma ss/Vol]Ordered By: Feliciano Ga on 09-08-2022 Cholesterol in VLDL [Mass/Vol] 13 mg/dL [facility] Complete Blood Count Auto Di ffon 09-08-2022 Basophils (Bld) [#/Vol] 0.0 10*3/uL Normal 0.0-0.2 [facility] Comment on above: Order Comment: Reaso n for Exam Hyperlipidemia Result Comment: PERF ORMED BY: [place] [address] PATHOLOGIST [employer]EL[employer] JAYY SANTA M.D. Performed By: #### C OVID-19 MARS, SOFIANEG #### [facility] [address] [place] [address] Basophils/100 WBC (Bld) 1.0 % Normal . [facility] Comment on above: Order Comment: Reaso n for Exam Hyperlipidemia Performed By: #### C OVID-19 MARS, SOFIANEG #### [facility] [address] [place] [address] [place] Eosinophils (Bld) [#/Vol] 0.8 10*3/uL High 0.0-0.45 [facility] Comment on above: Order Comment: Reaso n for Exam Hyperlipidemia Performed By: #### C OVID-19 MARS, SOFIANEG #### [facility] [address] [place] [address] [place] Eosinophils/100 WBC (Bld) 16.6 % Normal . [facility] Comment on above: Order Comment: Reaso n for Exam Hyperlipidemia Performed By: #### C OVID-19 MARS, SOFIANEG #### [facility] [address] Erythrocyte distribution width (RBC) [Ratio] 14.9 % High 12.0-14.8 [facility] Comment on above: Order Comment: Reaso n for Exam Hyperlipidemia Performed By: #### C OVID-19 MARS, SOFIANEG #### [facility] [address] [place] [address] Hematocrit (Bld) [Volume fraction] 37.1 % Low 38.8-50.0 [facility] Comment on above: Order Comment: Reaso n for Exam Hyperlipidemia Performed By: #### C OVID-19 MARS, SOFIANEG #### [facility] [address] [place] [address] Hemoglobin (Bld) [Mass/Vol] 12.5 g/dL Low 13.0-17.0 [facility] Comment on above: Order Comment: Reaso n for Exam Hyperlipidemia Performed By: #### C OVID-19 MARS, SOFIANEG #### [facility] [address] [place] [address] Lymphocytes (Bld) [#/Vol] 1.3 10*3/uL Normal 1.00-4.8 [facility] Comment on above: Order Comment: Reaso n for Exam Hyperlipidemia Performed By: #### C OVID-19 MARS, SOFIANEG #### [facility] [address] [place], [place] [id number] [place] Lymphocytes/100 WBC (Bld) 27.0 % Normal . [facility] Comment on above: Order Comment: Reaso n for Exam Hyperlipidemia Performed By: #### C OVID-19 MARS, SOFIANEG #### [facility] [address] [place] [address] [place] MCH (RBC) [Entitic mass] 33.5 pg Normal 27.5-35.2 [facility] Comment on above: Order Comment: Reaso n for Exam Hyperlipidemia Performed By: #### C OVID-19 MARS, SOFIANEG #### [facility] [address] MCV (RBC) [Entitic vol] 99.7 fL Normal 83.5-101 [facility] Comment on above: Order Comment: Reaso n for Exam Hyperlipidemia Performed By: #### C OVID-19 MARS, SOFIANEG #### [facility] [address] Mean Corpuscular HGB Conc 33.6 g/dL Normal 32.5-35.6 [facility] Comment on above: Order Comment: Reaso n for Exam Hyperlipidemia Performed By: #### C OVID-19 MARS, SOFIANEG #### [address] Monocytes (Bld) [#/Vol] 0.3 10*3/uL Normal 0.0-0.8 [facility] Comment on above: Order Comment: Reaso n for Exam Hyperlipidemia Performed By: #### C OVID-19 MARS, SOFIANEG #### [facility] [address] [place] [address] [place] Monocytes/100 WBC (Bld) 7.2 % Normal . [facility] Comment on above: Order Comment: Reaso n for Exam Hyperlipidemia Performed By: #### C OVID-19 MARS, SOFIANEG #### [facility] [address] [place] [address] [place] Neutrophils (Bld) [#/Vol] 2.2 10*3/uL Normal 1.8-7.7 [facility] Comment on above: Order Comment: Reaso n for Exam Hyperlipidemia Performed By: #### C OVID-19 MARS, SOFIANEG #### [facility] [address] [place] [address] [place] Neutrophils/100 WBC (Bld) 48.2 % Normal . [facility] Comment on above: Order Comment: Reaso n for Exam Hyperlipidemia Performed By: #### C OVID-19 MARS, SOFIANEG #### [facility] [address] [place] [address] [place] NRBC% 0.2 /100{WBC} Normal 0-0.5 [facility] Comment on above: Order Comment: Reaso n for Exam Hyperlipidemia Performed By: #### C OVID-19 MARS, SOFIANEG #### [facility] [address] Platelet mean volume (Bld) [Entitic vol] 8.8 fL Normal 6.6-10.1 [facility] Comment on above: Order Comment: Reaso n for Exam Hyperlipidemia Performed By: #### C OVID-19 MARS, SOFIANEG #### [facility] [address] Platelets (Bld) [#/Vol] 155 10*3/uL Normal 150-450 [facility] Comment on above: Order Comment: Reaso n for Exam Hyperlipidemia Performed By: #### C OVID-19 MARS, SOFIANEG #### [facility] [address] RBC (Bld) [#/Vol] 3.73 10*6/uL Low 3.90-5.60 [facility] Comment on above: Order Comment: Reaso n for Exam Hyperlipidemia Performed By: #### C OVID-19 MARS, SOFIANEG #### [facility] [address] [place] [address] WBC (Bld) [#/Vol] 4.7 10*3/uL Normal 4.1-10.5 [facility] Comment on above: Order Comment: Reaso n for Exam Hyperlipidemia Performed By: #### C OVID-19 MARS, SOFIANEG #### [facility] [address] Comprehensive Metabolic Pane haley 09-08-2022 Albumin [Mass/Vol] 4.1 g/dL Normal 3.5-5.7 [facility] Comment on above: Order Comment: Reaso n for Exam Hyperlipidemia Performed By: #### C OVID-19 MARS, SOFIANEG #### [facility] [address] [place] [address] [place] Albumin/Globulin [Mass ratio] 1.9 {ratio} Normal [facility] Comment on above: Order Comment: Reaso n for Exam Hyperlipidemia Performed By: #### C OVID-19 MARS, SOFIANEG #### [facility] [address] ALP [Catalytic activity/Vol] 124 U/L High 34-104 [facility] Comment on above: Order Comment: Reaso n for Exam Hyperlipidemia Performed By: #### C OVID-19 MARS, SOFIANEG #### [facility] [address] ALT [Catalytic activity/Vol] 31 U/L Normal 7-52 [facility] Comment on above: Order Comment: Reaso n for Exam Hyperlipidemia Performed By: #### C OVID-19 MARS, SOFIANEG #### [facility] [address] Anion gap [Moles/Vol] 8.3 mmol/L Normal 6.0-15.0 [facility] Comment on above: Order Comment: Reaso n for Exam Hyperlipidemia Performed By: #### C OVID-19 MARS, SOFIANEG #### [facility] [address] AST [Catalytic activity/Vol] 47 U/L High 13-39 [facility] Comment on above: Order Comment: Reaso n for Exam Hyperlipidemia Performed By: #### C OVID-19 MARS, SOFIANEG #### [facility] [address] [place] [address] [place] Bilirubin [Mass/Vol] 0.7 mg/dL Normal 0.3-1.0 [facility] Comment on above: Order Comment: Reaso n for Exam Hyperlipidemia Performed By: #### C OVID-19 MARS, SOFIANEG #### [facility] [address] [place] [id number] [place] Calcium [Mass/Vol] 9.5 mg/dL Normal 8.6-10.3 [facility] Comment on above: Order Comment: Reaso n for Exam Hyperlipidemia Performed By: #### C OVID-19 MARS, SOFIANEG #### [facility] [address] [place] [address] [place] Chloride [Moles/Vol] 107 mmol/L Normal 98-107 [facility] Comment on above: Order Comment: Reaso n for Exam Hyperlipidemia Performed By: #### C OVID-19 MARS, SOFIANEG #### [facility] [address] CO2 [Moles/Vol] 30.7 mmol/L Normal 21.0-31.0 [facility] Comment on above: Order Comment: Reaso n for Exam Hyperlipidemia Performed By: #### C OVID-19 MARS, SOFIANEG #### [facility] [address] Creatinine [Mass/Vol] 1.18 mg/dL Normal 0.70-1.30 [facility] Comment on above: Order Comment: Reaso n for Exam Hyperlipidemia Performed By: #### C OVID-19 MARS, SOFIANEG #### [facility] [address] [place] [address] [place] GFR/1.73 sq M.predicted MDRD (S/P/Bld) [Vol rate/Area] mL/min/{1.73_m2} [facility] Comment on above: Order Comment: Reaso n for Exam Hyperlipidemia Performed By: #### C OVID-19 MARS, SOFIANEG #### [facility] [address] [place] [address] [place] Globulin (S) [Mass/Vol] 2.2 g/dL [facility] Comment on above: Order Comment: Reaso n for Exam Hyperlipidemia Performed By: #### C OVID-19 MARS, SOFIANEG #### [facility] [address] [place] [address] [place] Glucose [Mass/Vol] 83 mg/dL Normal 70-100 [facility] Comment on above: Order Comment: Reaso n for Exam Hyperlipidemia Result Comment: [place] Glucose Reference Range is dependent on time and content of last meal. Glucose of more than 200 mg/dL in a nonstressed, ambulatory subject supports the diagnosis of Diabetes Mellitus. ADA recommended reference range Performed By: #### C OVID-19 MARS, SOFIANEG #### [facility] [address] Potassium [Moles/Vol] 4.0 mmol/L Normal 3.5-5.1 [facility] Comment on above: Order Comment: Reaso n for Exam Hyperlipidemia Performed By: #### C OVID-19 MARS, SOFIANEG #### [facility] [address] Protein [Mass/Vol] 6.3 g/dL Low 6.4-8.9 [facility] Comment on above: Order Comment: Reaso n for Exam Hyperlipidemia Performed By: #### C OVID-19 MARS, SOFIANEG #### [facility] [address] Sodium [Moles/Vol] 142 mmol/L Normal 136-145 [facility] Comment on above: Order Comment: Reaso n for Exam Hyperlipidemia Performed By: #### C OVID-19 MARS, SOFIANEG #### [facility] [address] Urea nitrogen [Mass/Vol] 22 mg/dL Normal 7-25 [facility] Comment on above: Order Comment: Reaso n for Exam Hyperlipidemia Performed By: #### C OVID-19 MARS, SOFIANEG #### [facility] [address] [place] [address] Creatinine [Mass/volume] in Serum or PlasmaOrdered By: Feliciano Ga on 09-08-2022 Creatinine [Mass/Vol] 1.18 mg/dL 0.70-1.30 [facility] Eosinophils Auto (Bld) [#/Vo l]Ordered By: Feliciano Ga on 09-08-2022 Eosinophils (Bld) [#/Vol] 0.8 10*3/uL 0.0-0.45 [facility] Eosinophils/100 WBC Auto (Bl d)Ordered By: Feliciano Ga on 09-08-2022 Eosinophils/100 WBC (Bld) 16.6 % . [facility] Erythrocyte distribution wid th Auto (RBC) [Ratio]Ordered By: Feliciano Ga on 09-08-2022 Erythrocyte distribution width (RBC) [Ratio] 14.9 % 12.0-14.8 [facility] Free T4 (Free Thyroxine)on 0 09-08-2022 Free T4 [Mass/Vol] 1.28 ng/dL High 0.61-1.12 [facility] Comment on above: Order Comment: Reaso n for Exam Weight loss Reason for Exam Hyperlipidemia Performed By: #### C OVID-19 MOSES CREWSEG #### [facility] [address] Globulin Calc (S) [Mass/Vol] Ordered By: Feliciano Ga on 09-08-2022 Globulin (S) [Mass/Vol] 2.2 g/dL [facility] Glucose [Mass/volume] in Ser um or PlasmaOrdered By: Feliciano Ga on 09-08-2022 Glucose [Mass/Vol] 83 mg/dL 70-100 [facility] Comment on above: ADA recommended refe rence rangeRandom Glucose Reference Range is dependent on time and content of last meal. Glucose of more than 200 mg/dL in a nonstressed, ambulatory subject supports the diagnosis of Diabetes Mellitus. Hematocrit Auto (Bld) [Volum e fraction]Ordered By: Feliciano Ga on 09-08-2022 Hematocrit (Bld) [Volume fraction] 37.1 % 38.8-50.0 [facility] Hemoglobin [Mass/volume] in BloodOrdered By: Feliciano Ga on 09-08-2022 Hemoglobin (Bld) [Mass/Vol] 12.5 g/dL 13.0-17.0 [facility] Leukocytes [#/volume] correc fern for nucleated erythrocytes in Blood by Automated counOrdered By: Feliciano Ga on 09-08-2022 WBC corrected for nucl RBC Auto (Bld) [#/Vol] 4.7 10*3/uL 4.1-10.5 [facility] Lipid Panelon 09-08-2022 Cholesterol [Mass/Vol] 124 mg/dL Low 140-200 [facility] Comment on above: Order Comment: Reaso n for Exam Hyperlipidemia Result Comment: Chol less than 200 mg/dl low risk Chol 201-239 mg/dl borderline risk Chol 240 mg/dl and greater high risk Performed By: #### C OVID-19 MARS SOFIANEG #### [facility] [address] Cholesterol in HDL [Mass/Vol] 67 mg/dL Normal 23-92 [facility] Comment on above: Order Comment: Reaso n for Exam Hyperlipidemia Result Comment: HDL CHOL ATP-III CLASSIFICATION Cardiovascular Risk HDL > or equal to 60 mg/dL LOW HDL < 40 mg/dL HIGH Performed By: #### C OVID-19 MARS, SOFIANEG #### [facility] [address] Cholesterol.total/Chol esterol in HDL [Mass ratio] 1.9 {ratio} Normal <5.0 [facility] Comment on above: Order Comment: Reaso n for Exam Hyperlipidemia Result Comment: PERF ORMED BY: [place] [address] PATHOLOGIST [employer]EL[employer] JAYY SANTA M.D. Performed By: #### C OVID-19 MARS SOFIANEG #### [facility] [address] [place] [address] LDL Cholesterol,Calculated 44 mg/dL Normal 0-100 [facility] Comment on above: Order Comment: Reaso n for Exam Hyperlipidemia Result Comment: LDL ATP III CLASSIFICATION LDL less than 100 mg/dL Optimal LDL 100-129 mg/dL Near or above optimal LDL 130-159 mg/dL Borderline high LDL 160-189 mg/dL High LDL greater than 189 mg/dL Very high Performed By: #### C OVID-19 MARS SOFIANEG #### [facility] [address] [place] [address] Triglyceride w/Reflex 66 mg/dL Normal 0-149 [facility] Comment on above: Order Comment: Reaso n for Exam Hyperlipidemia Result Comment: TRIG ATP III CLASSIFICATION TRIG less than 150 mg/dL Normal TRIG 150-199 mg/dL Borderline high TRIG 200-500 mg/dL High TRIG greater than 500 mg/dL Very high Standard traceable to the Center for Disease Conrtrol and Prevention (CDC) test method. Performed By: #### C OVID-19 MARS, SOFIANEG #### [facility] [address] VLDL CHOLESTEROL 13 mg/dL Normal [facility] Comment on above: Order Comment: Reaso n for Exam Hyperlipidemia Performed By: #### C OVID-19 JOSE CREWS #### [facility] [address] Lymphocytes Auto (Bld) [#/Vo l]Ordered By: Feliciano Ga on 09-08-2022 Lymphocytes (Bld) [#/Vol] 1.3 10*3/uL 1.00-4.8 [facility] Lymphocytes/100 WBC Auto (Bl d)Ordered By: Feliciano Ga on 09-08-2022 Lymphocytes/100 WBC (Bld) 27.0 % . [facility] MCH Auto (RBC) [Entitic mass ]Ordered By: Feliciano Ga on 09-08-2022 MCH (RBC) [Entitic mass] 33.5 pg 27.5-35.2 [facility] MCHC Auto (RBC) [Mass/Vol]Or dered By: Feliciano Ga on 09-08-2022 MCHC (RBC) [Mass/Vol] 33.6 g/dL 32.5-35.6 [facility] MCV Auto (RBC) [Entitic vol] Ordered By: Feliciano Ga on 09-08-2022 MCV (RBC) [Entitic vol] 99.7 fL 83.5-101 [facility] Monocytes Auto (Bld) [#/Vol] Ordered By: Feliciano Ga on 09-08-2022 Monocytes (Bld) [#/Vol] 0.3 10*3/uL 0.0-0.8 [facility] Monocytes/100 WBC Auto (Bld) Ordered By: Feliciano Ga on 09-08-2022 Monocytes/100 WBC (Bld) 7.2 % . [facility] Natriuretic peptide B [Mass/ Vol]Ordered By: Bhupinder Mcintyre on 09-08-2022 Natriuretic peptide B (Bld) [Mass/Vol] 123.0 pg/mL 5-100 [facility] Neutrophils Auto (Bld) [#/Vo l]Ordered By: Feliciano Ga on 09-08-2022 Neutrophils (Bld) [#/Vol] 2.2 10*3/uL 1.8-7.7 [facility] Neutrophils/100 WBC Auto (Bl d)Ordered By: Feliciano Ga on 09-08-2022 Neutrophils/100 WBC (Bld) 48.2 % . [facility] No Panel Informationon 09-08 123.0\S\123.0 above high threshold 5-100 [facility] Heart-Sandu lauro 250 DO Work Phone: Comment on above: PERFORMED BY:[facility] [place], [place] [phone] MEDICAL DIRECTORJAYY SANTA M.D. No Panel InformationOrdered By: Feliciano Ga on 09-08-2022 Estimated GFR (CKD-EPI) > 60.0 mL/Min [facility] Creatinine Clearance (Chem N/A [facility] Nucleated erythrocytes [Pres ence] in Blood by Automated countOrdered By: Feliciano Ga on 09-08-2022 Nucleated RBC Auto Ql (Bld) 0.2 /100{WBC} 0-0.5 [facility] PSA Screen (Yearly Only)on 0 09-08-2022 PSA Screen (Yearly Only) 2.140 ng/mL Normal 0.000-4.00 0 [facility] Comment on above: Order Comment: Reaso n for Exam Screening for prostate cancer Is patient <50 yrs? Medicare does not pay <50.: N What is the date of the last PSA Screen?: [id number] Is Medicare the insurance?: Y Did you verify eligibility (Dx Time) check TestViewGp: YES TO ALL Result Comment: PERF ORMED BY: [facility] [address] [place] [id number] PATHOLOGIST [employer]EL[employer] JAYY SANTA M.D. Performed By: #### C OVID-19 MOSES CREWSEG #### [facility] [address] Platelet mean volume Auto (B ld) [Entitic vol]Ordered By: Feliciano Ga on 09-08-2022 Platelet mean volume (Bld) [Entitic vol] 8.8 fL 6.6-10.1 [facility] Platelets Auto (Bld) [#/Vol] Ordered By: Feliciano Ga on 09-08-2022 Platelets (Bld) [#/Vol] 155 10*3/uL 150-450 [facility] Potassium [Moles/volume] in Serum or PlasmaOrdered By: Feliciano Ga on 09-08-2022 Potassium [Moles/Vol] 4.0 mmol/L 3.5-5.1 [facility] Prostate specific Ag [Mass/v olume] in Serum or PlasmaOrdered By: Feliciano Ga on 09-08-2022 Prostate specific Ag [Mass/Vol] 2.140 ng/mL 0.000-4.00 0 [facility] Protein [Mass/volume] in Ser um or PlasmaOrdered By: Feliciano Ga on 09-08-2022 Protein [Mass/Vol] 6.3 g/dL 6.4-8.9 [facility] RBC Auto (Bld) [#/Vol]Ordere d By: Feliciano Ga on 09-08-2022 RBC (Bld) [#/Vol] 3.73 10*6/uL 3.90-5.60 [facility] Serum or plasma albumin/glob ulin mass ratioOrdered By: Feliciano Ga on 09-08-2022 Albumin/Globulin [Mass ratio] 1.9 {ratio} [facility] Serum or plasma anion gap de terminationOrdered By: Feliciano Ga on 09-08-2022 Anion gap [Moles/Vol] 8.3 mmol/L 6.0-15.0 [facility] Serum or plasma high density lipoprotein (HDL) cholesterol measurementOrdered By: Feliciano Ga on 09-08-2022 Cholesterol in HDL [Mass/Vol] 67 mg/dL 23-92 [facility] Comment on above: HDL CHOL ATP-III CLA SSIFICATION Cardiovascular RiskHDL > or equal to 60 mg/dL LOWHDL < 40 mg/dL HIGH Serum or plasma total choles terol/high density lipoprotein (HDL) cholesterol mass ratOrdered By: Feliciano Ga on 09-08-2022 Cholesterol.total/Chol esterol in HDL [Mass ratio] 1.9 {ratio} <5.0 [facility] Sodium [Moles/volume] in Ser um or PlasmaOrdered By: Feliciano Ga on 09-08-2022 Sodium [Moles/Vol] 142 mmol/L 136-145 [facility] Thyroid Stimulating Hormoneo n 09-08-2022 TSH Qn 0.46 m[IU]/L Normal 0.45-5.33 [facility] Comment on above: Order Comment: Reaso n for Exam Weight loss Reason for Exam Hyperlipidemia Result Comment: PERF ORMED BY: [facility] [address] [place] [address] PATHOLOGIST [employer]EL[employer] JAYY SANTA M.D. Performed By: #### C OVID-19 JOSE CREWS #### [address] Thyrotropin [Units/volume] i n Serum or PlasmaOrdered By: Feliciano Ga on 09-08-2022 TSH Qn 0.46 m[IU]/L 0.45-5.33 [facility] Thyroxine (T4) free [Mass/vo lume] in Serum or PlasmaOrdered By: Feliciano Ga on 09-08-2022 Free T4 [Mass/Vol] 1.28 ng/dL 0.61-1.12 [facility] Triglyceride [Mass/volume] i n Serum or PlasmaOrdered By: Feliciano Ga on 09-08-2022 Triglyceride [Mass/Vol] 66 mg/dL 0-149 [facility] Comment on above: TRIG ATP III CLASSIF ICATIONTRIG less than 150 mg/dL NormalTRIG 150-199 mg/dL Borderline highTRIG 200-500 mg/dL High TRIG greater than 500 mg/dL Very highStandard traceable to the Center for Disease Conrtrol and Prevention (CDC) test method. Urea nitrogen [Mass/volume] in Serum or PlasmaOrdered By: Feliciano Ga on 09-08-2022 Urea nitrogen [Mass/Vol] 22 mg/dL 7-25 [facility] WBC Auto (Bld) [#/Vol]Ordere d By: Feliciano Ga on 09-08-2022 WBC (Bld) [#/Vol] 4.7 10*3/uL 4.1-10.5 [facility] Office Visit (Cardiology)on 07-07-2022 Follow-up visit Diagnoses/Problems [...] of Cardiac catheterization History of Complete colonoscopy [facility] History of Epidural steroid injection History of [...] other sy (more content not included)... Normal [facility] Tobacco Screening.on 023 Tobacco use status CPHS b) No [facility] [employer] 250 DO Work Phone: US KIDNEYS BLADDERon [...] by: RONALD ISRAEL Date: 2022-05-13 09:51 Normal [facility] Cardiovasc Arrhythmia Result son 03-15-2022 Cardiovasc Arrhythmia Results Reason For Visit Reason for Visit: Holter Monitor: IRINEO is here for the application of a 24 hour Holter monitor. Ordering Physician: Enedelia Aguillon NP Diagnosis: afib [facility] equipment agreement signed. IRINEO understands monitor is to be returned on: 03/16/2022 Monitor number [id number] applied. Holter monitor printed and placed on Dr. Marv Drwe MD desk to dictate. Procedure 1?the rhythm [...] Date/TimeProviderSpecialty Site 07/07/2022 09:[address] [facility] 2 [address] 250 DO Signatures Electronically signed by : Marv Drew MD; Mar 19 2022 6:25PM EST (Author) Electronically signed by : Enedelia Gomez APRN-SOCIAL AND HUMAN SERVICES ASSISTANT; Mar 22 2022 9:37AM EST (Author) Normal [facility] Basic Metabolic Panelon 01-0 Anion gap [Moles/Vol] 10.1 mmol/L Normal 6.0-15.0 [facility] Comment on above: Performed By: #### C OVID-19 MARS SOFIANEG #### [facility] [address] [place] [address] [place] Calcium [Mass/Vol] 9.9 mg/dL Normal 8.2-10.2 [facility] Comment on above: Result Comment: PERF ORMED BY: [facility] [address] [place] [address] PATHOLOGIST [employer]ELOPER JAYY SANTA M.D. Performed By: #### C OVID-19 MARS SOFIANEG #### [facility] [address] [place] [address] [place] Chloride [Moles/Vol] 100 mmol/L Normal 95-114 [facility] Comment on above: Performed By: #### C OVID-19 MARS, SOFIANEG #### [facility] [address] [place] [id number] [place] CO2 [Moles/Vol] 30.5 mmol/L High 22.0-30.0 [facility] Comment on above: Performed By: #### C OVID-19 MARS, SOFIANEG #### [facility] [address] [place] [id number] [place] Creatinine [Mass/Vol] 1.28 mg/dL High 0.64-1.27 [facility] Comment on above: Performed By: #### C OVID-19 MARS, SOFIANEG #### [facility] [address] Estimated GFR ( Amarilis > 60 [facility] Comment on above: Result Comment: GFR estimated reference range: According to KDOQI guidelines, <60 ml/min/1.73m2 is sufficient to diagnose a patient with chronic kidney disease. Performed By: #### C OVID-19 MARS SOFIANEG #### [facility] [address] Estimated GFR (Non- Am 54 [facility] Comment on above: Performed By: #### C OVID-19 MARS SOFIANEG #### [facility] [address] Glucose [Mass/Vol] 96 mg/dL Normal 70-100 [facility] Comment on above: Result Comment: [place] om Glucose Reference Range is dependent on time and content of last meal. Glucose of more than 200 mg/dL in a nonstressed, ambulatory subject supports the diagnosis of Diabetes Mellitus. ADA recommended reference range Performed By: #### C OVID-19 MARS, SOFIANEG #### [facility] [address] [place] [id number] [place] Potassium [Moles/Vol] 3.6 mmol/L Normal 3.5-5.1 [facility] Comment on above: Performed By: #### C OVID-19 MARS, SOFIANEG #### [facility] [address] [place] [id number] [place] Sodium [Moles/Vol] 137 mmol/L Normal 136-146 [facility] Comment on above: Performed By: #### C OVID-19 MARS, SOFIANEG #### [facility] [address] [place] [address] [place] Urea nitrogen [Mass/Vol] 17 mg/dL Normal 9-23 [facility] Comment on above: Performed By: #### C OVID-19 MARS, SOFIANEG #### [facility] [address] [place] [address] [place] Creatinine and Glomerular fi ltration rate.predicted panel (S/P/Bld)Ordered By: Enedelia Gomez on 03-11-2022 Creatinine [Mass/Vol] 1.28 mg/dL 0.64-1.27 [facility] Estimated glomerular filtrat ion rate (GFR) non- AmericanOrdered By: Enedelia Gomez on 03-11-2022 GFR/1.73 sq M.predicted among non-blacks MDRD (S/P/Bld) [Vol rate/Area] 54 mL/Min [facility] No Panel InformationOrdered By: Enedelia Gomez on 03-11-2022 Estimated GFR () > 60 mL/Min [facility] Comment on above: GFR estimated refere nce range: According to KDOQI guidelines, <60 ml/min/1.73m2 is sufficient to diagnose a patient with chronic kidney disease. Pharmacy Creatinine Clearance (Chem N/A [facility] No Panel Informationon 03-11 10.1\S\10.1 Normal 6.0-15.0 [facility] [employer] lauro 250 DO Work Phone: 9.9\S\9.9 Normal 8.2-10.2 [facility] ([employer]u lauro 250 DO Work Phone: Comment on above: PERFORMED BY:[facility] [facility], [place] [phone] MEDICAL DIRECTORJAYY SANTA M.D. 30.5\S\30.5 above high threshold 22.0-30.0 [facility] HeartBio[employer] Pharmaceuticals lauro 250 DO Work Phone: 100\S\100 Normal 95-114 [facility] Harpreet restrepo 250 DO Work Phone: 3.6\S\3.6 Normal 3.5-5.1 [facility] Harpreet restrepo 250 DO Work Phone: 137\S\137 Normal 136-146 [facility] Harpreet restrepo 250 DO Work Phone: > 60 Normal [facility] Harpreet restrepo 250 DO Work Phone: Comment on above: GFR estimated refere nce range: According to KDOQI guidelines, <60 ml/min/1.73m2 is sufficient to diagnose a patient with chronic kidney disease. 54\S\54 Normal [facility] Harpreet restrepo 250 DO Work Phone: 1.28\S\1.28 above high threshold 0.64-1.27 [facility] Harpreet restrepo 250 DO Work Phone: 17\S\17 Normal 9-23 [facility] Harpreet restrepo 250 DO Work Phone: 96\S\96 Normal 70-100 [facility] Harpreet restrepo 250 DO Work Phone: Comment on above: Random Glucose Refer ence Range is dependent on time and content of last meal. Glucose of more than 200 mg/dL in a nonstressed, ambulatory subject supports the diagnosis of Diabetes Mellitus. ADA recommended reference range Serum or plasma anion gap de terminationOrdered By: Enedelia Gomez on 03-11-2022 Anion gap [Moles/Vol] 10.1 mmol/L 6.0-15.0 [facility] Serum or plasma calcium alistair urement (mass/volume)Ordered By: Enedelia Gomez on 03-11-2022 Calcium [Mass/Vol] 9.9 mg/dL 8.2-10.2 [facility] Serum or plasma chloride jaymie surement (moles/volume)Ordered By: Enedelia Gomez on 03-11-2022 Chloride [Moles/Vol] 100 mmol/L 95-114 [facility] Serum or plasma glucose alistair urement (mass/volume)Ordered By: Enedelia Gomez on 03-11-2022 Glucose [Mass/Vol] 96 mg/dL 70-100 [facility] Comment on above: ADA recommended refe rence rangeRandom Glucose Reference Range is dependent on time and content of last meal. Glucose of more than 200 mg/dL in a nonstressed, ambulatory subject supports the diagnosis of Diabetes Mellitus. Serum or plasma potassium me asurement (moles/volume)Ordered By: Enedelia Gomez on 03-11-2022 Potassium [Moles/Vol] 3.6 mmol/L 3.5-5.1 [facility] Serum or plasma sodium measu rement (moles/volume)Ordered By: Enedelia Gomez on 03-11-2022 Sodium [Moles/Vol] 137 mmol/L 136-146 [facility] Serum or plasma total carbon dioxide measurement (moles/volume)Ordered By: Enedelia Gomez on 03-11-2022 CO2 [Moles/Vol] 30.5 mmol/L 22.0-30.0 [facility] Serum or plasma urea nitroge n measurement (mass/volume)Ordered By: Enedelia Gomez on 03-11-2022 Urea nitrogen [Mass/Vol] 17 mg/dL 9-23 [facility] Office Visit (Cardiology)on 03-10-2022 Follow-up [...] Mcintyre July 2021. 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 He denies any palpitations or fast heartbeats. [...] of Cardiac catheterization History of Complete colonoscopy [facility] History of Epidural steroid injection History of [...] TabletTAKE 1 (more content not included)... Normal [facility] Tobacco Screening.on 023 Adult depression screening assessment No [facility] [employer] 250 DO Work Phone: Fall risk assessment b) One or more fall s in the last year [facility] [employer] 250 DO Work Phone: Tobacco use status CPHS b) No [facility] [employer] 250 DO Work Phone: Basic Metabolic Panelon 11- Anion gap [Moles/Vol] 11.4 mmol/L Normal 6.0-15.0 [facility] Comment on above: Performed By: #### C , BMP #### [facility] [address] Calcium [Mass/Vol] 9.0 mg/dL Normal 8.2-10.2 [facility] Comment on above: Performed By: #### C BC, BMP #### [facility] [address] Chloride [Moles/Vol] 95 mmol/L Normal 95-114 [facility] Comment on above: Performed By: #### C BC, BMP #### [facility] [address] CO2 [Moles/Vol] 29.6 mmol/L Normal 22.0-30.0 [facility] Comment on above: Performed By: #### C BC, BMP #### [facility] [address] Creatinine [Mass/Vol] 1.56 mg/dL High 0.64-1.27 [facility] Comment on above: Performed By: #### C BC, BMP #### [place] [address] [place] Creatinine Clr Calc Pharmacy 39.79 [facility] Comment on above: Result Comment: PERF ORMED BY: [place] [address] PATHOLOGIST [employer] DEVEL[employer] JAYY SANTA M.D. Performed By: #### C BC, BMP #### [address] Estimated GFR ( Amarilis 52 [facility] Comment on above: Result Comment: GFR estimated reference range: According to KDOQI guidelines, <60 ml/min/1.73m2 is sufficient to diagnose a patient with chronic kidney disease. Performed By: #### C BC, BMP #### [facility] [address] [place] [address] [place] Estimated GFR (Non- Am 43 [facility] Comment on above: Performed By: #### C BC, BMP #### [place] [address] [place] Glucose [Mass/Vol] 87 mg/dL Normal 70-100 [facility] Comment on above: Result Comment: [place] Glucose Reference Range is dependent on time and content of last meal. Glucose of more than 200 mg/dL in a nonstressed, ambulatory subject supports the diagnosis of Diabetes Mellitus. ADA recommended reference range Performed By: #### C BC, BMP #### [facility] [address] Potassium [Moles/Vol] 4.0 mmol/L Normal 3.5-5.1 [facility] Comment on above: Performed By: #### C BC, BMP #### [facility] [address] Sodium [Moles/Vol] 132 mmol/L Low 136-146 [facility] Comment on above: Performed By: #### C BC, BMP #### [facility] [address] Urea nitrogen [Mass/Vol] 29 mg/dL High 9-23 [facility] Comment on above: Performed By: #### C BC, BMP #### [facility] [address] [place] [address] [place] Basophils Auto (Bld) [#/Vol] Ordered By: Raji Ennis on 01-16-2022 Basophils (Bld) [#/Vol] 0.1 10*3/uL 0.0-0.2 [facility] Basophils/100 WBC Auto (Bld) Ordered By: Raji Ennis on 01-16-2022 Basophils/100 WBC (Bld) 1.0 % . [facility] Complete Blood Count Auto Di ffon 01-16-2022 Basophils (Bld) [#/Vol] 0.1 10*3/uL Normal 0.0-0.2 [facility] Comment on above: Result Comment: PERF ORMED BY: [place] [address] PATHOLOGIST [employer]EL[employer] JAYY SANTA M.D. Performed By: #### C BC, BMP #### [facility] [address] [place] [address] [place] Basophils/100 WBC (Bld) 1.0 % Normal . [facility] Comment on above: Performed By: #### C BC, BMP #### [facility] [address] Eosinophils (Bld) [#/Vol] 0.4 10*3/uL Normal 0.0-0.45 [facility] Comment on above: Performed By: #### C BC, BMP #### [facility] [address] Eosinophils/100 WBC (Bld) 5.6 % Normal . [facility] Comment on above: Performed By: #### C BC, BMP #### [facility] [address] Erythrocyte distribution width (RBC) [Ratio] 15.3 % High 12.0-14.8 [facility] Comment on above: Performed By: #### C BC, BMP #### [facility] [address] Hematocrit (Bld) [Volume fraction] 35.4 % Low 38.8-50.0 [facility] Comment on above: Performed By: #### C BC, BMP #### [facility] [address] Hemoglobin (Bld) [Mass/Vol] 11.8 g/dL Low 13.0-17.0 [facility] Comment on above: Performed By: #### C BC, BMP #### [facility] [address] [place] [address] [place] Lymphocytes (Bld) [#/Vol] 1.1 10*3/uL Normal 1.00-4.8 [facility] Comment on above: Performed By: #### C BC, BMP #### [facility] [address] [place] [address] [place] Lymphocytes/100 WBC (Bld) 17.1 % Normal . [facility] Comment on above: Performed By: #### C BC, BMP #### [facility] [address] MCH (RBC) [Entitic mass] 33.2 pg Normal 27.5-35.2 [facility] Comment on above: Performed By: #### C BC, BMP #### [facility] [address] MCV (RBC) [Entitic vol] 100.0 fL Normal 83.5-101 [facility] Comment on above: Performed By: #### C BC, BMP #### [facility] [address] Mean Corpuscular HGB Conc 33.3 g/dL Normal 32.5-35.6 [facility] Comment on above: Performed By: #### C BC, BMP #### [facility] [address] Monocytes (Bld) [#/Vol] 0.8 10*3/uL Normal 0.0-0.8 [facility] Comment on above: Performed By: #### C BC, BMP #### [facility] [address] Monocytes/100 WBC (Bld) 11.9 % Normal . [facility] Comment on above: Performed By: #### C BC, BMP #### [facility] [address] [place] [address] [place] Neutrophils (Bld) [#/Vol] 4.2 10*3/uL Normal 1.8-7.7 [facility] Comment on above: Performed By: #### C BC, BMP #### [facility] [address] [place] [address] [place] Neutrophils/100 WBC (Bld) 64.4 % Normal . [facility] Comment on above: Performed By: #### C BC, BMP #### [facility] [address] [place] [address] [place] Nucleated RBC/100 WBC (Bld) [Ratio] 0.0 % Normal 0-0.5 [facility] Comment on above: Performed By: #### C BC, BMP #### [facility] [address] Platelet mean volume (Bld) [Entitic vol] 9.1 fL Normal 6.6-10.1 [facility] Comment on above: Performed By: #### C BC, BMP #### [facility] [address] [place] [address] [place] Platelets (Bld) [#/Vol] 195 10*3/uL Normal 150-450 [facility] Comment on above: Performed By: #### C BC, BMP #### [facility] [address] RBC (Bld) [#/Vol] 3.54 10*6/uL Low 3.90-5.60 [facility] Comment on above: Performed By: #### C BC, BMP #### [facility] [address] [place] [id number] [place] WBC (Bld) [#/Vol] 6.5 10*3/uL Normal 4.5-11.0 [facility] Comment on above: Performed By: #### C BC, BMP #### [facility] [address] Creatinine and Glomerular fi ltration rate.predicted panel (S/P/Bld)Ordered By: Raji Ennis on 01-16-2022 Creatinine [Mass/Vol] 1.56 mg/dL 0.64-1.27 [facility] Eosinophils Auto (Bld) [#/Vo l]Ordered By: Raji Arringtonam on 01-16-2022 Eosinophils (Bld) [#/Vol] 0.4 10*3/uL 0.0-0.45 [facility] Eosinophils/100 WBC Auto (Bl d)Ordered By: RajiStaufferam on 01-16-2022 Eosinophils/100 WBC (Bld) 5.6 % . [facility] Erythrocyte distribution wid th Auto (RBC) [Ratio]Ordered By: Raji Ennis on 01-16-2022 Erythrocyte distribution width (RBC) [Ratio] 15.3 % 12.0-14.8 [facility] Estimated glomerular filtrat ion rate (GFR) non- AmericanOrdered By: Raji Ennis on 01-16-2022 GFR/1.73 sq M.predicted among non-blacks MDRD (S/P/Bld) [Vol rate/Area] 43 mL/Min [facility] Hematocrit Auto (Bld) [Volum e fraction]Ordered By: Raji Ennis on 01-16-2022 Hematocrit (Bld) [Volume fraction] 35.4 % 38.8-50.0 [facility] Hemoglobin [Mass/volume] in BloodOrdered By: Raji Ennis on 01-16-2022 Hemoglobin (Bld) [Mass/Vol] 11.8 g/dL 13.0-17.0 [facility] Laboratory - Hematology and Cell countsOrdered By: Raji Ennis on 01-16-2022 Nucleated RBC/100 WBC (Bld) [Ratio] 0.0 % 0-0.5 [facility] Leukocytes [#/volume] in Blo od by Automated countOrdered By: Raji Ennis on 01-16-2022 WBC (Bld) [#/Vol] 6.5 10*3/uL 4.5-11.0 [facility] Lymphocytes Auto (Bld) [#/Vo l]Ordered By: Raji Ennis on 01-16-2022 Lymphocytes (Bld) [#/Vol] 1.1 10*3/uL 1.00-4.8 [facility] Lymphocytes/100 WBC Auto (Bl d)Ordered By: Raji Ennis on 01-16-2022 Lymphocytes/100 WBC (Bld) 17.1 % . [facility] MCH Auto (RBC) [Entitic mass ]Ordered By: Raji Ennis on 01-16-2022 MCH (RBC) [Entitic mass] 33.2 pg 27.5-35.2 [facility] MCHC Auto (RBC) [Mass/Vol]Or dered By: Raji Ennis on 01-16-2022 MCHC (RBC) [Mass/Vol] 33.3 g/dL 32.5-35.6 [facility] MCV Auto (RBC) [Entitic vol] Ordered By: Raji Ennis on 01-16-2022 MCV (RBC) [Entitic vol] 100.0 fL 83.5-101 [facility] Monocytes Auto (Bld) [#/Vol] Ordered By: Raji Ennis on 01-16-2022 Monocytes (Bld) [#/Vol] 0.8 10*3/uL 0.0-0.8 [facility] Monocytes/100 WBC Auto (Bld) Ordered By: Raji Raymon on 01-16-2022 Monocytes/100 WBC (Bld) 11.9 % . [facility] Neutrophils Auto (Bld) [#/Vo l]Ordered By: Raji Raymon on 01-16-2022 Neutrophils (Bld) [#/Vol] 4.2 10*3/uL 1.8-7.7 [facility] Neutrophils/100 WBC Auto (Bl d)Ordered By: Raji Raymon on 01-16-2022 Neutrophils/100 WBC (Bld) 64.4 % . [facility] No Panel InformationOrdered By: Raji Ennis on 01-16-2022 Estimated GFR () 52 mL/Min [facility] Comment on above: GFR estimated refere nce range: According to KDOQI guidelines, <60 ml/min/1.73m2 is sufficient to diagnose a patient with chronic kidney disease. Pharmacy Creatinine Clearance (Chem 39.79 [facility] Platelet mean volume Auto (B ld) [Entitic vol]Ordered By: Raji Arringtonam on 01-16-2022 Platelet mean volume (Bld) [Entitic vol] 9.1 fL 6.6-10.1 [facility] Platelets Auto (Bld) [#/Vol] Ordered By: Raji Raymon on 01-16-2022 Platelets (Bld) [#/Vol] 195 10*3/uL 150-450 [facility] RBC Auto (Bld) [#/Vol]Ordere d By: Raji Raymon on 01-16-2022 RBC (Bld) [#/Vol] 3.54 10*6/uL 3.90-5.60 [facility] Serum or plasma anion gap de terminationOrdered By: Raji Raymon on 01-16-2022 Anion gap [Moles/Vol] 11.4 mmol/L 6.0-15.0 [facility] Serum or plasma calcium alistair urement (mass/volume)Ordered By: RajiStaufferam on 01-16-2022 Calcium [Mass/Vol] 9.0 mg/dL 8.2-10.2 [facility] Serum or plasma chloride jaymie surement (moles/volume)Ordered By: Raji Raymon on 01-16-2022 Chloride [Moles/Vol] 95 mmol/L 95-114 [facility] Serum or plasma glucose alistair urement (mass/volume)Ordered By: RajiStaufferam on 01-16-2022 Glucose [Mass/Vol] 87 mg/dL 70-100 [facility] Comment on above: ADA recommended refe rence rangeRandom Glucose Reference Range is dependent on time and content of last meal. Glucose of more than 200 mg/dL in a nonstressed, ambulatory subject supports the diagnosis of Diabetes Mellitus. Serum or plasma potassium me asurement (moles/volume)Ordered By: Raji [facility] on 01-16-2022 Potassium [Moles/Vol] 4.0 mmol/L 3.5-5.1 [facility] Serum or plasma sodium measu rement (moles/volume)Ordered By: Raji [facility] on 01-16-2022 Sodium [Moles/Vol] 132 mmol/L 136-146 [facility] Serum or plasma total carbon dioxide measurement (moles/volume)Ordered By: Raji [facility] on 01-16-2022 CO2 [Moles/Vol] 29.6 mmol/L 22.0-30.0 [facility] Serum or plasma urea nitroge n measurement (mass/volume)Ordered By: Raji Raymon on 01-16-2022 Urea nitrogen [Mass/Vol] 29 mg/dL 9-23 [facility] Basic Metabolic Panelon 01-05 Anion gap [Moles/Vol] 8.2 mmol/L Normal 6.0-15.0 [facility] Comment on above: Performed By: #### B MARY CBC #### [facility] [address] Calcium [Mass/Vol] 8.8 mg/dL Normal 8.2-10.2 [facility] Comment on above: Performed By: #### B MP, CBC #### [facility] [address] [place] [address] [place] Chloride [Moles/Vol] 94 mmol/L Low 95-114 [facility] Comment on above: Performed By: #### B MP, CBC #### [facility] [address] CO2 [Moles/Vol] 31.7 mmol/L High 22.0-30.0 [facility] Comment on above: Performed By: #### B MP, CBC #### [facility] [address] Creatinine [Mass/Vol] 1.50 mg/dL High 0.64-1.27 [facility] Comment on above: Performed By: #### B MP, CBC #### [address] Creatinine Clr Calc Pharmacy 41.13 [facility] Comment on above: Result Comment: PERF ORMED BY: [place] [address] PATHOLOGIST [employer] AJYY SANTA M.D. Performed By: #### B MP, CBC #### [address] Estimated GFR ( Amarilis 54 [facility] Comment on above: Result Comment: GFR estimated reference range: According to KDOQI guidelines, <60 ml/min/1.73m2 is sufficient to diagnose a patient with chronic kidney disease. Performed By: #### B MP, CBC #### [facility] [address] [place] [address] Estimated GFR (Non- Am 45 [facility] Comment on above: Performed By: #### B MP, CBC #### [facility] [address] [place] [address] [place] Glucose [Mass/Vol] 87 mg/dL Normal 70-100 [facility] Comment on above: Result Comment: [place] Glucose Reference Range is dependent on time and content of last meal. Glucose of more than 200 mg/dL in a nonstressed, ambulatory subject supports the diagnosis of Diabetes Mellitus. ADA recommended reference range Performed By: #### B MP, CBC #### [address] Potassium [Moles/Vol] 3.9 mmol/L Normal 3.5-5.1 [facility] Comment on above: Performed By: #### B MP, CBC #### [address] Sodium [Moles/Vol] 130 mmol/L Low 136-146 [facility] Comment on above: Performed By: #### B MP, CBC #### [address] Urea nitrogen [Mass/Vol] 29 mg/dL High 9- [facility] Comment on above: Performed By: #### B MP, CBC #### [address] Complete Blood Count Auto Di ffon 01-15-2022 Basophils (Bld) [#/Vol] 0.1 10*3/uL Normal 0.0-0.2 [facility] Comment on above: Result Comment: PERF ORMED BY: [place] [address] PATHOLOGIST [employer] JAYY SANTA M.D. Performed By: #### B MP, CBC #### [address] Basophils/100 WBC (Bld) 0.7 % Normal . [facility] Comment on above: Performed By: #### B MP, CBC #### [place] [address] [place] Eosinophils (Bld) [#/Vol] 0.4 10*3/uL Normal 0.0-0.45 [facility] Comment on above: Performed By: #### B MP, CBC #### [address] Eosinophils/100 WBC (Bld) 4.9 % Normal . [facility] Comment on above: Performed By: #### B MP, CBC #### [address] [address] [place] Erythrocyte distribution width (RBC) [Ratio] 15.3 % High 12.0-14.8 [facility] Comment on above: Performed By: #### B MP, CBC #### [address] Hematocrit (Bld) [Volume fraction] 34.7 % Low 38.8-50.0 [facility] Comment on above: Performed By: #### B MP, CBC #### [address] Hemoglobin (Bld) [Mass/Vol] 11.7 g/dL Low 13.0-17.0 [facility] Comment on above: Performed By: #### B MP, CBC #### [address] Lymphocytes (Bld) [#/Vol] 1.0 10*3/uL Normal 1.00-4.8 [facility] Comment on above: Performed By: #### B MP, CBC #### [address] Lymphocytes/100 WBC (Bld) 13.2 % Normal . [facility] Comment on above: Performed By: #### B MP, CBC #### [address] MCH (RBC) [Entitic mass] 33.7 pg Normal 27.5-35.2 [facility] Comment on above: Performed By: #### B MP, CBC #### [address] MCV (RBC) [Entitic vol] 99.8 fL Normal 83.5-101 [facility] Comment on above: Performed By: #### B MP, CBC #### [address] Mean Corpuscular HGB Conc 33.8 g/dL Normal 32.5-35.6 [facility] Comment on above: Performed By: #### B MP, CBC #### [address] Monocytes (Bld) [#/Vol] 0.8 10*3/uL Normal 0.0-0.8 [facility] Comment on above: Performed By: #### B MP, CBC #### [facility] [address] Monocytes/100 WBC (Bld) 10.1 % Normal . [facility] Comment on above: Performed By: #### B MP, CBC #### [facility] [address] Neutrophils (Bld) [#/Vol] 5.6 10*3/uL Normal 1.8-7.7 [facility] Comment on above: Performed By: #### B MP, CBC #### [address] Neutrophils/100 WBC (Bld) 71.1 % Normal . [facility] Comment on above: Performed By: #### B MP, CBC #### [address] Nucleated RBC/100 WBC (Bld) [Ratio] 0.0 % Normal 0-0.5 [facility] Comment on above: Performed By: #### B MP, CBC #### [address] Platelet mean volume (Bld) [Entitic vol] 9.1 fL Normal 6.6-10.1 [facility] Comment on above: Performed By: #### B MP, CBC #### [address] Platelets (Bld) [#/Vol] 180 10*3/uL Normal 150-450 [facility] Comment on above: Performed By: #### B MP, CBC #### [place] [address] [place] RBC (Bld) [#/Vol] 3.48 10*6/uL Low 3.90-5.60 [facility] Comment on above: Performed By: #### B MP, CBC #### [place] [address] [place] WBC (Bld) [#/Vol] 7.9 10*3/uL Normal 4.5-11.0 [facility] Comment on above: Performed By: #### B MP, CBC #### [facility] [address] [place] [address] Urine culture routineOrdered By: Victor Manuel Reynolds on 01-15-2022 Bacteria identified Cx Nom (U) No Growth 2 Days [facility] CT hip RT wo conon 2 CT hip RT wo con [facility] Main [facility] [address] [place] [address] CT Scan Report Signed Patient: Irineo Wallis Jr MR#: [id number] : 1940 Acct:[id number] Age/Sex: 81 / M ADM Date: 01/09/22 Loc: Room: [address] [place] [id number] Type: ADM IN Attending Dr: Raji Ennis MD Copies to: Raji Ennis MD Ordering Provider: Rjai Ennis MD Date of Service: 01/14/22 CT/CT [...] Esa Cardoso M.D.01/14/2022 4:23 PM Dictation Location: [place] [address] Transcribed By: [facility] 01/14/22 1623 Dictated By: Esa Cardoso DO 01/14/22 1608 Signed By: 01/14/221622 [facility] XR hip RT 1Von 01-14-2022 XR hip RT 1V [facility] Main [facility] [address] [place] [address] XRay Report Signed Patient: Irineo Wallis Jr MR#: [id number] : 1940 Acct:[id number] Age/Sex: 81 / M ADM Date: 01/09/22 Loc: Room: [address] [place] [id number] Type: ADM IN Attending Dr: Raji Ennis [...] Groves Jr., NelsyODane01/14/2022 9:04 AM Dictation Location: [place] [address] Transcribed By: [facility] 01/14/22903 Dictated By: Ortega Groves Jr, DO 01/14/22902 Signed By: 01/14/22903 Normal [facility] Automated erythrocytes count in urine sediment (number/area)Ordered By: Victor Manuel Reynolds on 01-13-2022 RBC Auto (Urine sed) [#/Area] 50-100 [HPF] 0-4 [facility] Automated leukocytes count i n urine sediment (number/area)Ordered By: Victor Manuel Reynolds on 01-13-2022 WBC Auto (Urine sed) [#/Area] 5-9 [HPF] 0-4 [facility] Basic Metabolic Panelon 11- Anion gap [Moles/Vol] 8.3 mmol/L Normal 6.0-15.0 [facility] Comment on above: Performed By: #### B MP, CBC #### [facility] [address] Calcium [Mass/Vol] 8.5 mg/dL Normal 8.2-10.2 [facility] Comment on above: Performed By: #### B MP, CBC #### [facility] [address] [place] [address] [place] Chloride [Moles/Vol] 93 mmol/L Low 95-114 [facility] Comment on above: Performed By: #### B MP, CBC #### [facility] [address] CO2 [Moles/Vol] 32.6 mmol/L High 22.0-30.0 [facility] Comment on above: Performed By: #### B MP, CBC #### [facility] [address] Creatinine [Mass/Vol] 1.44 mg/dL High 0.64-1.27 [facility] Comment on above: Performed By: #### B MP, CBC #### [facility] [address] [place] [address] [place] Creatinine Clr Calc Pharmacy 43.24 [facility] Comment on above: Result Comment: PERF ORMED BY: [place] [address] PATHOLOGIST [employer] JAYY SANTA M.D. Performed By: #### B MP, CBC #### [facility] [address] [place] [address] Estimated GFR ( Amarilis 57 [facility] Comment on above: Result Comment: GFR estimated reference range: According to KDOQI guidelines, <60 ml/min/1.73m2 is sufficient to diagnose a patient with chronic kidney disease. Performed By: #### B MP, CBC #### [facility] [address] [place] [address] [place] Estimated GFR (Non- Am 47 [facility] Comment on above: Performed By: #### B MP, CBC #### [address] [place] [address] [place] Glucose [Mass/Vol] 92 mg/dL Normal 70-100 [facility] Comment on above: Result Comment: [place] Glucose Reference Range is dependent on time and content of last meal. Glucose of more than 200 mg/dL in a nonstressed, ambulatory subject supports the diagnosis of Diabetes Mellitus. ADA recommended reference range Performed By: #### B MP, CBC #### [facility] [address] Potassium [Moles/Vol] 3.9 mmol/L Normal 3.5-5.1 [facility] Comment on above: Performed By: #### B MP, CBC #### [facility] [address] Sodium [Moles/Vol] 130 mmol/L Low 136-146 [facility] Comment on above: Performed By: #### B MP, CBC #### [address] Urea nitrogen [Mass/Vol] 24 mg/dL High 9-23 [facility] Comment on above: Performed By: #### B MP, CBC #### [address] Bilirubin Test strip Ql (U)O rdered By: Victor Manuel Reynolds on 01-13-2022 Bilirubin Ql (U) Negative Negative [facility] Color Auto (U)Ordered By: Brigitte Reynolds on 01-13-2022 Color (U) Yellow Yellow [facility] Complete Blood Count Auto Di ffon 01-13-2022 Basophils (Bld) [#/Vol] 0.1 10*3/uL Normal 0.0-0.2 [facility] Comment on above: Result Comment: PERF ORMED BY: [place] [address] PATHOLOGIST [employer] JAYY SANTA M.D. Performed By: #### B MP, CBC #### [place] [address] [place] Basophils/100 WBC (Bld) 1.0 % Normal . [facility] Comment on above: Performed By: #### B MP, CBC #### [facility] [address] [place] [address] [place] Eosinophils (Bld) [#/Vol] 0.1 10*3/uL Normal 0.0-0.45 [facility] Comment on above: Performed By: #### B MP, CBC #### [facility] [address] [place] [address] [place] Eosinophils/100 WBC (Bld) 0.7 % Normal . [facility] Comment on above: Performed By: #### B MP, CBC #### [facility] [address] Erythrocyte distribution width (RBC) [Ratio] 15.7 % High 12.0-14.8 [facility] Comment on above: Performed By: #### B MP, CBC #### [facility] [address] Hematocrit (Bld) [Volume fraction] 37.7 % Low 38.8-50.0 [facility] Comment on above: Performed By: #### B MP, CBC #### [facility] [address] [place] [address] [place] Hemoglobin (Bld) [Mass/Vol] 12.4 g/dL Low 13.0-17.0 [facility] Comment on above: Performed By: #### B MP, CBC #### [facility] [address] [place] [address] [place] Lymphocytes (Bld) [#/Vol] 1.2 10*3/uL Normal 1.00-4.8 [facility] Comment on above: Performed By: #### B MP, CBC #### [facility] [address] [place] [address] [place] Lymphocytes/100 WBC (Bld) 13.0 % Normal . [facility] Comment on above: Performed By: #### B MP, CBC #### [facility] [address] MCH (RBC) [Entitic mass] 33.2 pg Normal 27.5-35.2 [facility] Comment on above: Performed By: #### B MP, CBC #### [facility] [address] MCV (RBC) [Entitic vol] 100.8 fL Normal 83.5-101 [facility] Comment on above: Performed By: #### B MP, CBC #### [facility] [address] Mean Corpuscular HGB Conc 33.0 g/dL Normal 32.5-35.6 [facility] Comment on above: Performed By: #### B MP, CBC #### [facility] [address] [place] [address] [place] Monocytes (Bld) [#/Vol] 1.2 10*3/uL High 0.0-0.8 [facility] Comment on above: Performed By: #### B MP, CBC #### [facility] [address] [place] [address] [place] Monocytes/100 WBC (Bld) 13.1 % Normal . [facility] Comment on above: Performed By: #### B MP, CBC #### [facility] [address] [place] [address] [place] Neutrophils (Bld) [#/Vol] 6.8 10*3/uL Normal 1.8-7.7 [facility] Comment on above: Performed By: #### B MP, CBC #### [facility] [address] [place] [address] [place] Neutrophils/100 WBC (Bld) 72.2 % Normal . [facility] Comment on above: Performed By: #### B MP, CBC #### [facility] [address] [place] [address] [place] Nucleated RBC/100 WBC (Bld) [Ratio] 0.1 % Normal 0-0.5 [facility] Comment on above: Performed By: #### B MP, CBC #### [facility] [address] [place] [address] [place] Platelet mean volume (Bld) [Entitic vol] 9.3 fL Normal 6.6-10.1 [facility] Comment on above: Performed By: #### B MP, CBC #### [facility] [address] Platelets (Bld) [#/Vol] 162 10*3/uL Significant change down 150-450 [facility] Comment on above: Performed By: #### B MP, CBC #### [address] RBC (Bld) [#/Vol] 3.74 10*6/uL Low 3.90-5.60 [facility] Comment on above: Performed By: #### B MP, CBC #### [facility] [address] WBC (Bld) [#/Vol] 9.4 10*3/uL Normal 4.5-11.0 [facility] Comment on above: Performed By: #### B MP, CBC #### [address] Dipstick and Microscopicon 1 03-15-2021 Appearance (U) Clear Normal Clear [facility] Comment on above: Order Comment: Name Collection Type:: Chou Catheter Performed By: #### C UU, ADDONUAPLUS #### [address] Bacteria,Urine None Seen Normal None Seen [facility] Comment on above: Order Comment: Name Collection Type:: Chou Catheter Performed By: #### C UU, ADDONUAPLUS #### [place] [address] [place] Bilirubin,Urine Negative Normal Negative [facility] Comment on above: Order Comment: Name Collection Type:: Chou Catheter Performed By: #### C UU, ADDONUAPLUS #### [address] Color (U) Yellow Normal Yellow [facility] Comment on above: Order Comment: Name Collection Type:: Chou Catheter Performed By: #### C UU, ADDONUAPLUS #### [address] Glucose Ql (U) Normal Normal Normal [facility] Comment on above: Order Comment: Name Collection Type:: Chou Catheter Performed By: #### C UU, ADDONUAPLUS #### [facility] [address] [place] [address] Hyaline Casts,Urine 0-8 Normal 0-8 [facility] Comment on above: Order Comment: Name Collection Type:: Chou Catheter Result Comment: PERF ORMED BY: [place] [address] PATHOLOGIST [employer] JAYY SANTA M.D. Performed By: #### C UU, ADDONUAPLUS #### [facility] [address] [place] [address] Ketones Ql (U) Negative Normal Negative [facility] Comment on above: Order Comment: Name Collection Type:: Chou Catheter Performed By: #### C UU, ADDONUAPLUS #### [address] Leukocyte esterase Test strip Ql (U) 2+ High Negative [facility] Comment on above: Order Comment: Name Collection Type:: Chou Catheter Performed By: #### C UU, ADDONUAPLUS #### [facility] [address] [place] [address] Nitrite,Urine Negative Normal Negative [facility] Comment on above: Order Comment: Name Collection Type:: Chou Catheter Performed By: #### C UU, ADDONUAPLUS #### [facility] [address] [place] [address] Occult Blood,Urine 3+ High Negative [facility] Comment on above: Order Comment: Name Collection Type:: Chou Catheter Result Comment: PERF ORMED BY: [place] [address] PATHOLOGIST [employer] JAYY SANTA M.D. Performed By: #### C UU, ADDONUAPLUS #### [facility] [address] [place] [address] pH (U) 5.5 [pH] Normal 5.0-9.0 [facility] Comment on above: Order Comment: Name Collection Type:: Chou Catheter Performed By: #### C UU, ADDONUAPLUS #### [facility] [address] [place] [address] Protein (U) [Mass/Vol] 30 mg/dL High Negative [facility] Comment on above: Order Comment: Name Collection Type:: Chou Catheter Performed By: #### C UU, ADDONUAPLUS #### [address] RBC,Urine 50-100 High 0-4 [facility] Comment on above: Order Comment: Name Collection Type:: Chou Catheter Performed By: #### C UU, ADDONUAPLUS #### [address] Specificy [place],Urine 1.012 Normal 1.001-1.03 0 [facility] Comment on above: Order Comment: Name Collection Type:: Chou Catheter Performed By: #### C UU, ADDONUAPLUS #### [address] Squamous Epithelial Cell,Urine 0-1 Normal 0-2 [facility] Comment on above: Order Comment: Name Collection Type:: Chou Catheter Performed By: #### C UU, ADDONUAPLUS #### [address] Urobilinogen,Urine Normal Normal Normal [facility] Comment on above: Order Comment: Name Collection Type:: Chou Catheter Performed By: #### C UU, ADDONUAPLUS #### [facility] [address] [place] [address] WBC,Urine 5-9 High 0-4 [facility] Comment on above: Order Comment: Name Collection Type:: Chou Catheter Performed By: #### C UU, ADDONUAPLUS #### [address] Ketones Auto test strip (U) [Mass/Vol]Ordered By: Victor Manuel Reynolds on 01-13-2022 Ketones (U) [Mass/Vol] Negative Negative [facility] Laboratory - UrinalysisOrder ed By: Victor Manuel Gail on 01-13-2022 Hyaline casts LM Ql (Urine sed) 0-8 [LPF] 0-8 [facility] MR lumbar spine wo/w conon 1 03-15-2021 MR lumbar spine wo/w con [facility] Main Axis [address] [place] [address] MRI Report Signed Patient: Irineo Wallis Jr MR#: [id number] : 1940 Acct:[id number] Age/Sex: 81 / M ADM Date: 01/09/22 Loc: Room: [address] [place] [id number] Type: ADM IN Attending Dr: Raji Ennis [...] Esa Cardoso M.D.01/13/2022 12:12 PM Dictation Location: [place] [address] Transcribed By: NOLVIA 01/13/22 1212 Dictated By: Esa Cardoso DO 01/13/22 1205 Signed By: 01/13/22 1212 Normal [facility] Nitrite Test strip Ql (U)Ord ered By: Victor Manuel Reynolds on 01-13-2022 Nitrite Ql (U) Negative Negative [facility] Protein Auto test strip (U) [Mass/Vol]Ordered By: Victor Manuel Reynolds on 01-13-2022 Protein (U) [Mass/Vol] 30 mg/dL Negative [facility] Serum or plasma uric acid me asurement (mass/volume)Ordered By: Victor Manuel Reynolds on 01-13-2022 Urate [Mass/Vol] 4.7 mg/dL 2.6-7.2 [facility] Serum or plasma vancomycin m easurement (mass/volume)Ordered By: Raji Ennis on 01-13-2022 Vancomycin [Mass/Vol] 9.7 ug/mL 5.0-20.0 [facility] Comment on above: Last dose: - Specific gravity Auto test s trip (U) [Rel density]Ordered By: Victor Manuel Reynolds on 01-13-2022 Specific gravity (U) [Rel density] 1.012 1.001-1.03 0 [facility] Squamous epithelial cells de tection in urine sediment by light microscopyOrdered By: Victor Manuel Reynolds on 01-13-2022 Epithelial cells.squamous LM Ql (Urine sed) 0-1 [HPF] 0-2 [facility] Uric Acidon 01-13-2022 Urate [Mass/Vol] 4.7 mg/dL Normal 2.6-7.2 [facility] Comment on above: Result Comment: PERF ORMED BY: [place] [address] PATHOLOGIST [employer]EL[employer] JAYY SANTA M.D. Performed By: #### U FIONA #### [facility] [address] [place] [address] [place] Urine Cultureon 01-13-2022 Bacteria identified Cx Nom (U) No Growth 2 Days PERFORMED BY: [place] [address] PATHOLOGIST [employer] DEVELOPER JAYY SANTA M.D. [facility] Comment on above: Performed By: #### C UU, ADDONUAPLUS #### [facility] [address] [place] [address] Urine bacteria detection by automated methodOrdered By: Victor Manuel Reynolds on 01-13-2022 Bacteria Auto Ql (U) None seen None Seen [facility] Urine clarity by refractomet ry automatedOrdered By: Victor Manuel Reynolds on 01-13-2022 Clarity Refractometry automated (U) Clear Clear [facility] Urine culture routineOrdered By: Victor Manuel Reynolds on 01-13-2022 Bacteria identified Cx Nom (U) No Growth 2 Days [facility] Urine glucose measurement by automated test strip (mass/volume)Ordered By: Victor Manuel Reynolds on 01-13-2022 Glucose Auto test strip (U) [Mass/Vol] Normal mg/dL Normal [facility] Urine hemoglobin detection b y automated test stripOrdered By: Victor Manuel Reynolds on 01-13-2022 Hemoglobin Auto test strip Ql (U) 3+ Negative [facility] Urine leukocyte esterase det ection by automated test stripOrdered By: Victor Manuel Reynolds on 01-13-2022 Leukocyte esterase Auto test strip Ql (U) 2+ Negative [facility] Urobilinogen Auto test strip (U) [Mass/Vol]Ordered By: Victor Manuel Reynolds on 01-13-2022 Urobilinogen (U) [Mass/Vol] Normal mg/dL Normal [facility] Vancomycin,Randomon 01-14-20 Vancomycin,Random 9.7 ug/mL Normal 5.0-20.0 [facility] Comment on above: Order Comment: Date of last dose?: [id number] Time of last dose?: 1529 Result Comment: Last dose: - PERFORMED BY: [facility] [address] [place] [address] PATHOLOGIST [employer] DEVELOPER JAYY SANTA M.D. Performed By: #### C OVID-19 JOSE CREWS #### [facility] [address] pH Auto test strip (U)Ordere d By: Victor Manuel Reynolds on 01-13-2022 pH (U) 5.5 [pH] 5.0-9.0 [facility] Bacterial blood cultureOrder ed By: Raji Ennis on 01-12-2022 Bacteria identified Cx Nom (Bld) NO GROWTH 5 DAYS [facility] Basic Metabolic Panelon Anion gap [Moles/Vol] 10.4 mmol/L Normal 6.0-15.0 [facility] Comment on above: Performed By: #### C BC, BMP #### [facility] [address] Calcium [Mass/Vol] 8.9 mg/dL Normal 8.2-10.2 [facility] Comment on above: Performed By: #### C BC, BMP #### [facility] [address] [place] [address] [place] Chloride [Moles/Vol] 94 mmol/L Low 95-114 [facility] Comment on above: Performed By: #### C BC, BMP #### [facility] [address] [place] [address] [place] CO2 [Moles/Vol] 31.4 mmol/L High 22.0-30.0 [facility] Comment on above: Performed By: #### C BC, BMP #### [facility] [address] [place] [address] [place] Creatinine [Mass/Vol] 1.53 mg/dL High 0.64-1.27 [facility] Comment on above: Performed By: #### C BC, BMP #### [facility] [address] [place] [address] [place] Creatinine Clr Calc Pharmacy 40.96 [facility] Comment on above: Result Comment: PERF ORMED BY: [place] [address] PATHOLOGIST [employer] DEVELOPER JAYY SANTA M.D. Performed By: #### C BC, BMP #### [address] Estimated GFR ( Amarilis 53 [facility] Comment on above: Result Comment: GFR estimated reference range: According to KDOQI guidelines, <60 ml/min/1.73m2 is sufficient to diagnose a patient with chronic kidney disease. Performed By: #### C BC, BMP #### [address] Estimated GFR (Non- Am 44 [facility] Comment on above: Performed By: #### C BC, BMP #### [address] Glucose [Mass/Vol] 99 mg/dL Normal 70-100 [facility] Comment on above: Result Comment: [place] Glucose Reference Range is dependent on time and content of last meal. Glucose of more than 200 mg/dL in a nonstressed, ambulatory subject supports the diagnosis of Diabetes Mellitus. ADA recommended reference range Performed By: #### C BC, BMP #### [address] Potassium [Moles/Vol] 3.8 mmol/L Normal 3.5-5.1 [facility] Comment on above: Performed By: #### C BC, BMP #### [place] [address] [place] Sodium [Moles/Vol] 132 mmol/L Low 136-146 [facility] Comment on above: Performed By: #### C BC, BMP #### [address] Urea nitrogen [Mass/Vol] 22 mg/dL Normal 9-23 [facility] Comment on above: Performed By: #### C BC, BMP #### [address] Blood Cultureon 01-12-2022 Bacteria identified Cx Nom (Bld) NO GROWTH 5 DAYS PERFORMED BY: [place] [address] PATHOLOGIST [employer] DEVELOPER JAYY SANTA M.D. [facility] Comment on above: Performed By: #### C BC, BMP #### [address] Bacteria identified Cx Nom (Bld) NO GROWTH 5 DAYS PERFORMED BY: [place] [address] PATHOLOGIST [employer] DEVELOPER JAYY SANTA M.D. [facility] Comment on above: Performed By: #### C BC, BMP #### [address] C reactive protein [Mass/vol ume] in Serum or PlasmaOrdered By: Raji Ennis on 01-12-2022 CRP [Mass/Vol] 8.4 mg/dL 0.0-1.0 [facility] C-Reactive Proteinon 022 C-Reactive Protein 8.4 mg/dL High 0.0-1.0 [facility] Comment on above: Order Comment: Comme nt can use prior labs if possible Result Comment: PERF ORMED BY: [place] [address] PATHOLOGIST [employer] DEVELOPER JAYY SANTA M.D. Performed By: #### C BC, BMP #### [address] Complete Blood Count Auto Di ffon 01-12-2022 Basophils (Bld) [#/Vol] 0.1 10*3/uL Normal 0.0-0.2 [facility] Comment on above: Result Comment: PERF ORMED BY: [place] [address] PATHOLOGIST [employer] DEVELOPER JAYY SANTA M.D. Performed By: #### C BC, BMP #### [place] [address] [place] Basophils/100 WBC (Bld) 0.5 % Normal . [facility] Comment on above: Performed By: #### C BC, BMP #### [facility] [address] [place] [address] [place] Eosinophils (Bld) [#/Vol] 0.2 10*3/uL Normal 0.0-0.45 [facility] Comment on above: Performed By: #### C BC, BMP #### [facility] [address] [place] [address] [place] Eosinophils/100 WBC (Bld) 1.9 % Normal . [facility] Comment on above: Performed By: #### C BC, BMP #### [facility] [address] Erythrocyte distribution width (RBC) [Ratio] 15.5 % High 12.0-14.8 [facility] Comment on above: Performed By: #### C BC, BMP #### [facility] [address] Hematocrit (Bld) [Volume fraction] 38.8 % Normal 38.8-50.0 [facility] Comment on above: Performed By: #### C BC, BMP #### [facility] [address] Hemoglobin (Bld) [Mass/Vol] 12.9 g/dL Low 13.0-17.0 [facility] Comment on above: Performed By: #### C BC, BMP #### [facility] [address] [place] [address] [place] Lymphocytes (Bld) [#/Vol] 1.2 10*3/uL Normal 1.00-4.8 [facility] Comment on above: Performed By: #### C BC, BMP #### [facility] [address] [place] [address] [place] Lymphocytes/100 WBC (Bld) 12.2 % Normal . [facility] Comment on above: Performed By: #### C BC, BMP #### [facility] [address] MCH (RBC) [Entitic mass] 33.6 pg Normal 27.5-35.2 [facility] Comment on above: Performed By: #### C BC, BMP #### [facility] [address] MCV (RBC) [Entitic vol] 100.8 fL Normal 83.5-101 [facility] Comment on above: Performed By: #### C BC, BMP #### [facility] [address] Mean Corpuscular HGB Conc 33.3 g/dL Normal 32.5-35.6 [facility] Comment on above: Performed By: #### C BC, BMP #### [facility] [address] [place] [address] [place] Monocytes (Bld) [#/Vol] 0.9 10*3/uL High 0.0-0.8 [facility] Comment on above: Performed By: #### C BC, BMP #### [facility] [address] [place] [address] [place] Monocytes/100 WBC (Bld) 9.1 % Normal . [facility] Comment on above: Performed By: #### C BC, BMP #### [facility] [address] [place] [address] [place] Neutrophils (Bld) [#/Vol] 7.7 10*3/uL Normal 1.8-7.7 [facility] Comment on above: Performed By: #### C BC, BMP #### [facility] [address] [place] [address] [place] Neutrophils/100 WBC (Bld) 76.3 % Normal . [facility] Comment on above: Performed By: #### C BC, BMP #### [facility] [address] [place] [id number] [place] Nucleated RBC/100 WBC (Bld) [Ratio] 0.1 % Normal 0-0.5 [facility] Comment on above: Performed By: #### C BC, BMP #### [facility] [address] Platelet mean volume (Bld) [Entitic vol] 8.8 fL Normal 6.6-10.1 [facility] Comment on above: Performed By: #### C BC, BMP #### [facility] [address] [place] [id number] [facility] Platelets (Bld) [#/Vol] 214 10*3/uL Normal 150-450 [facility] Comment on above: Performed By: #### C BC, BMP #### [facility] [address] RBC (Bld) [#/Vol] 3.85 10*6/uL Low 3.90-5.60 [facility] Comment on above: Performed By: #### C BC, BMP #### [facility] [address] [place] [address] [place] WBC (Bld) [#/Vol] 10.1 10*3/uL Normal 4.5-11.0 [facility] Comment on above: Performed By: #### C BC, BMP #### [facility] [address] XR chest 1V portableon 01-12 XR chest 1V portable [facility] Main Axis [address] [place] [address] XRay Report Signed Patient: Irineo Wallis Jr MR#: [id number] : 1940 Acct:[id number] Age/Sex: 81 / M ADM Date: 01/09/22 Loc: Room: [address] [place] [id number] Type: ADM IN Attending Dr: Raji Ennis [...] Esa Cardoso M.D.01/12/2022 12:47 PM Dictation Location: [place] [address] Transcribed By: [facility] 01/12/221246 Dictated By: Esa Cardoso DO 01/12/22 1245 Signed By: 01/12/22 1247 [facility] Albumin [Mass/volume] in Ser um or PlasmaOrdered By: Vikas Mane on 01-11-2022 Albumin [Mass/Vol] 2.9 g/dL 2.9-4.4 [facility] Basic Metabolic Panelon 11-0 Anion gap [Moles/Vol] 10.6 mmol/L Normal 6.0-15.0 [facility] Comment on above: Performed By: #### C OVID-19 MARS, SOFIANEG #### [facility] [address] [place] [id number] [place] Calcium [Mass/Vol] 8.7 mg/dL Normal 8.2-10.2 [facility] Comment on above: Performed By: #### C OVID-19 MARS, SOFIANEG #### [facility] [address] [place] [address] [place] Chloride [Moles/Vol] 98 mmol/L Normal 95-114 [facility] Comment on above: Performed By: #### C OVID-19 MARS, SOFIANEG #### [facility] [address] [place] [address] [place] CO2 [Moles/Vol] 28.8 mmol/L Normal 22.0-30.0 [facility] Comment on above: Performed By: #### C OVID-19 MARS, SOFIANEG #### [facility] [address] [place] [address] [place] Creatinine [Mass/Vol] 1.49 mg/dL High 0.64-1.27 [facility] Comment on above: Performed By: #### C OVID-19 MARS, SOFIANEG #### [facility] [address] [place] [address] [place] Creatinine Clr Calc Pharmacy 42.37 [facility] Comment on above: Result Comment: PERF ORMED BY: [place] [address] PATHOLOGIST [employer] DEVELOPER JAYY SANTA M.D. Performed By: #### C OVID-19 MARS SOFIANEG #### [address] Estimated GFR ( Amarilis 55 [facility] Comment on above: Result Comment: GFR estimated reference range: According to KDOQI guidelines, <60 ml/min/1.73m2 is sufficient to diagnose a patient with chronic kidney disease. Performed By: #### C OVID-19 MARS SOFIANEG #### [address] Estimated GFR (Non- Am 45 [facility] Comment on above: Performed By: #### C OVID-19 MARS SOFIANEG #### [address] Glucose [Mass/Vol] 90 mg/dL Normal 70-100 [facility] Comment on above: Result Comment: [place] Glucose Reference Range is dependent on time and content of last meal. Glucose of more than 200 mg/dL in a nonstressed, ambulatory subject supports the diagnosis of Diabetes Mellitus. ADA recommended reference range Performed By: #### C OVID-19 MARS SOFIANEG #### [place] [address] [place] Potassium [Moles/Vol] 3.4 mmol/L Low 3.5-5.1 [facility] Comment on above: Performed By: #### C OVID-19 MARS SOFIANEG #### [facility] [address] [place] [address] [place] Sodium [Moles/Vol] 134 mmol/L Low 136-146 [facility] Comment on above: Performed By: #### C OVID-19 MARS SOFIANEG #### [facility] [address] [place] [address] [place] Urea nitrogen [Mass/Vol] 24 mg/dL High 9-23 [facility] Comment on above: Performed By: #### C OVID-19 MARS SOFIANEG #### [address] Complete Blood Count Auto Di ffon 01-11-2022 Basophils (Bld) [#/Vol] 0.1 10*3/uL Normal 0.0-0.2 [facility] Comment on above: Result Comment: PERF ORMED BY: [place] [address] PATHOLOGIST [employer] DEVELOPER JAYY SANTA M.D. Performed By: #### C BC, BMP #### [address] Basophils/100 WBC (Bld) 0.7 % Normal . [facility] Comment on above: Performed By: #### C BC, BMP #### [address] Eosinophils (Bld) [#/Vol] 0.2 10*3/uL Normal 0.0-0.45 [facility] Comment on above: Performed By: #### C BC, BMP #### [address] Eosinophils/100 WBC (Bld) 2.2 % Normal . [facility] Comment on above: Performed By: #### C BC, BMP #### [address] Erythrocyte distribution width (RBC) [Ratio] 15.5 % High 12.0-14.8 [facility] Comment on above: Performed By: #### C BC, BMP #### [address] Hematocrit (Bld) [Volume fraction] 38.1 % Low 38.8-50.0 [facility] Comment on above: Performed By: #### C BC, BMP #### [address] Hemoglobin (Bld) [Mass/Vol] 12.7 g/dL Low 13.0-17.0 [facility] Comment on above: Performed By: #### C BC, BMP #### [address] [place] [address] [place] Lymphocytes (Bld) [#/Vol] 1.2 10*3/uL Normal 1.00-4.8 [facility] Comment on above: Performed By: #### C BC, BMP #### [facility] [address] [place] [address] [place] Lymphocytes/100 WBC (Bld) 13.7 % Normal . [facility] Comment on above: Performed By: #### C BC, BMP #### [facility] [address] MCH (RBC) [Entitic mass] 33.4 pg Normal 27.5-35.2 [facility] Comment on above: Performed By: #### C BC, BMP #### [address] MCV (RBC) [Entitic vol] 100.6 fL Normal 83.5-101 [facility] Comment on above: Performed By: #### C BC, BMP #### [address] Mean Corpuscular HGB Conc 33.3 g/dL Normal 32.5-35.6 [facility] Comment on above: Performed By: #### C BC, BMP #### [place] [address] [place] Monocytes (Bld) [#/Vol] 0.8 10*3/uL Normal 0.0-0.8 [facility] Comment on above: Performed By: #### C BC, BMP #### [place] [address] [place] Monocytes/100 WBC (Bld) 9.6 % Normal . [facility] Comment on above: Performed By: #### C BC, BMP #### [place] [address] [place] Neutrophils (Bld) [#/Vol] 6.3 10*3/uL Normal 1.8-7.7 [facility] Comment on above: Performed By: #### C BC, BMP #### [address] [place] [address] [place] Neutrophils/100 WBC (Bld) 73.8 % Normal . [facility] Comment on above: Performed By: #### C KARTIK, BMP #### [address] Nucleated RBC/100 WBC (Bld) [Ratio] 0.0 % Normal 0-0.5 [facility] Comment on above: Performed By: #### C KARTIK, BMP #### [address] Platelet mean volume (Bld) [Entitic vol] 8.8 fL Normal 6.6-10.1 [facility] Comment on above: Performed By: #### C KARTIK, BMP #### [address] Platelets (Bld) [#/Vol] 177 10*3/uL Normal 150-450 [facility] Comment on above: Performed By: #### C KARTIK, BMP #### [address] RBC (Bld) [#/Vol] 3.78 10*6/uL Low 3.90-5.60 [facility] Comment on above: Performed By: #### C KARTIK, BMP #### [address] WBC (Bld) [#/Vol] 8.5 10*3/uL Normal 4.5-11.0 [facility] Comment on above: Performed By: #### C KARTIK, BMP #### [address] [facility] echo transthoracicon [facility] echo transthoracic [facility] Main Axis [address] [place] [address] Echocardiogram Signed Patient: Irineo Wallis Jr MR#: [id number] : 1940 Acct:[id number] Age/Sex: 81 / M ADM Date: 01/09/22 Loc: Room: [address] [place] [id number] Type: DIS IN Attending Dr: Raji Ennis MD Ordering Provider: Dharmesh Zavala DO Date of Service: 01/10/2208/26/499 [facility] echo transthoracic: dyspnea, pleural effusion Copies to: [...] [id number] Signed By: Robert Thorne MD 01/11/22 0946 Normal [facility] IgA [Mass/volume] in Serum o r PlasmaOrdered By: Vikas Mane on 01-11-2022 IgA [Mass/Vol] 171 mg/dL 61-437 [facility] IgG [Mass/volume] in Serum o r PlasmaOrdered By: Vikas Mane on 01-11-2022 IgG [Mass/Vol] 816 mg/dL 603-1613 [facility] IgM [Mass/volume] in Serum o r PlasmaOrdered By: Vikas Mane on 01-11-2022 IgM [Mass/Vol] 105 mg/dL 15-143 [facility] Comment on above: Performed at: [facility] [address] [id number] Director: Patrick Ortiz PhD, Phone: [phone] Immunofixation,Serumon 01-11 Immunofixation, Serum Normal . [facility] Comment on above: Result Comment: No m onoclonality detected. Performed By: #### B MP, CBC #### [facility] [address] Immunoglobulin A, Serum 171 mg/dL Normal 61-437 [facility] Comment on above: Performed By: #### B MP, CBC #### [facility] [address] [place] [id number] [facility] Immunoglobulin G 816 mg/dL Normal 603-1613 [facility] Comment on above: Performed By: #### B MP, CBC #### [facility] [address] Immunoglobulin M, Serum 105 mg/dL Normal 15-143 [facility] Comment on above: Result Comment: Perf ormed at: [facility] [address] [id number] [employer] Presser: Patrick Ortiz PhD, Phone: [phone] Performed By: #### B MP, CBC #### [address] No Panel InformationOrdered By: Vikas Mane on 01-11-2022 Protein Electrophoresis M-Franky Not observed g/dL Not Observed [facility] Protein Electrophoresis Note See comment . [facility] Comment on above: Protein electrophore sis scan will follow via computer,mail, or metallurgical engineer delivery.Performed at: [facility] [id number] Director: Patrick Ortiz PhD, Phone: [phone] Serum Immunofixation See comment . [facility] Comment on above: No monoclonality det ected. Protein Electrophoresis, Ser umon 01-11-2022 Albumin [Mass/Vol] 2.9 g/dL Normal 2.9-4.4 [facility] Comment on above: Performed By: #### B MP, CBC #### [facility] [address] [place] [address] Albumin/Globulin [Mass ratio] 1.2 {ratio} Normal 0.7-1.7 [facility] Comment on above: Performed By: #### B MP, CBC #### [address] Fqpfp-8-Yketwcge 0.4 g/dL Normal 0.0-0.4 [facility] Comment on above: Performed By: #### B MP, CBC #### [address] Mmzul-3-Ikmyfpfb 0.7 g/dL Normal 0.4-1.0 [facility] Comment on above: Performed By: #### B MP, CBC #### [address] Beta Globulin 0.6 g/dL Low 0.7-1.3 [facility] Comment on above: Performed By: #### B MP, CBC #### [address] Gamma Globulin 0.8 g/dL Normal 0.4-1.8 [facility] Comment on above: Performed By: #### B MP, CBC #### [address] Globulin (S) [Mass/Vol] 2.4 g/dL Normal 2.2-3.9 [facility] Comment on above: Performed By: #### B MP, CBC #### [address] M-Franky Not Observed Normal Not Observed [facility] Comment on above: Performed By: #### B MP, CBC #### [address] Protein [Mass/Vol] 5.3 g/dL Low 6.0-8.5 [facility] Comment on above: Performed By: #### B MP, CBC #### [facility] [address] [place] [address] SPE-Note Normal . [facility] Comment on above: Result Comment: Prot ein electrophoresis scan will follow via computer, mail, or metallurgical engineer delivery. Performed at: - [facility] [id number] [employer]er: Patrick Ortiz PhD, Phone: [phone] PERFORMED BY: [place] [address] PATHOLOGIST [employer]EL[employer] JAYY SANTA M.D. Performed By: #### B MP, CBC #### [address] Protein [Mass/volume] in Ser um or PlasmaOrdered By: Vikas Mane on 01-11-2022 Protein [Mass/Vol] 5.3 g/dL 6.0-8.5 [facility] Serum globulin measurement ( mass/volume)Ordered By: Vikas Mane on 01-11-2022 Globulin (S) [Mass/Vol] 2.4 g/dL 2.2-3.9 [facility] Serum or plasma albumin/glob ulin mass ratioOrdered By: Vikas Mane on 01-11-2022 Albumin/Globulin [Mass ratio] 1.2 {ratio} 0.7-1.7 [facility] Serum or plasma alpha 1 glob ulin measurement by electrophoresis (mass/volume)Ordered By: Vikas Mane on 01-11-2022 Alpha 1 globulin Elph [Mass/Vol] 0.4 g/dL 0.0-0.4 [facility] Serum or plasma alpha 2 glob ulin measurement by electrophoresis (mass/volume)Ordered By: Vikas Mane on 01-11-2022 Alpha 2 globulin Elph [Mass/Vol] 0.7 g/dL 0.4-1.0 [facility] Serum or plasma beta globuli n measurement by electrophoresis (mass/volume)Ordered By: Vikas Mane on 01-11-2022 Beta globulin Elph [Mass/Vol] 0.6 g/dL 0.7-1.3 [facility] Serum or plasma gamma globul in measurement by electrophoresis (mass/volume)Ordered By: Vikas Mane on 01-11-2022 Gamma globulin Elph [Mass/Vol] 0.8 g/dL 0.4-1.8 [facility] US carotid doppler BIon US carotid doppler BI [facility] Main Axis [address] [place], [place] [id number] Ultrasound Report Signed Patient: Irineo Wallis MR#: [id number] : 1940 Acct:[id number] Age/Sex: 81 / M ADM Date: 01/09/22 Loc: Room: [address] [place] [id number] Type: ADM IN Attending Dr: Dharmesh Zavala [...] Deo Jamison MD01/11/2022 10:29 AM Dictation Location: [place] [address] Tech: Criss Avery Transcribed By: [facility] 01/11/22 1029 Dictated By: Deo Jamison MD 01/11/22 1029 Signed By: 01/11/22 1029 Normal [facility] A1C with Estimated Average G gama 01-10-2022 Glucose [Mass/Vol] 114 mg/dL Normal [facility] Comment on above: Result Comment: PERF ORMED BY: [place] [address] PATHOLOGIST [employer] DEVELOPER JAYY SANTA M.D. Performed By: #### C BC, BMP #### [address] HbA1c (Bld) [Mass fraction] 5.6 % Normal 4.3-5.6 [facility] Comment on above: Result Comment: Incr eased risk for diabetes: 5.7 - 6.4 diabetes: >6.4 glycemic control for adults with diabetes: <7.0 Performed By: #### C BC, BMP #### [address] B-Type Natriuretic Peptideon 01-10-2022 Natriuretic peptide B (Bld) [Mass/Vol] 679.0 pg/mL High 5-100 [facility] Comment on above: Result Comment: PERF ORMED BY: [place] [address] PATHOLOGIST [employer] DEVELOPER JAYY SANTA M.D. Performed By: #### B MP, CBC #### [place] [id number] [facility] Basic Metabolic Panelon 11-0 Anion gap [Moles/Vol] 12.1 mmol/L Normal 6.0-15.0 [facility] Comment on above: Performed By: #### C BC, BMP #### [facility] [address] [place] [id number] [place] Calcium [Mass/Vol] 8.6 mg/dL Normal 8.2-10.2 [facility] Comment on above: Performed By: #### C BC, BMP #### [facility] [address] [place] [id number] [place] Chloride [Moles/Vol] 99 mmol/L Normal 95-114 [facility] Comment on above: Performed By: #### C BC, BMP #### [facility] [address] [place] [address] [place] CO2 [Moles/Vol] 26.7 mmol/L Normal 22.0-30.0 [facility] Comment on above: Performed By: #### C BC, BMP #### [facility] [address] Creatinine [Mass/Vol] 1.60 mg/dL High 0.64-1.27 [facility] Comment on above: Performed By: #### C BC, BMP #### [facility] [address] [place] [address] [place] Creatinine Clr Calc Pharmacy 39.46 [facility] Comment on above: Performed By: #### C BC, BMP #### [facility] [address] [place] [id number] [place] Estimated GFR ( Amarilis 51 [facility] Comment on above: Result Comment: GFR estimated reference range: According to KDOQI guidelines, <60 ml/min/1.73m2 is sufficient to diagnose a patient with chronic kidney disease. Performed By: #### C BC, BMP #### [facility] [address] [place] [id number] [place] Estimated GFR (Non- Am 42 [facility] Comment on above: Performed By: #### C BC, BMP #### [facility] [address] [place] [id number] [place] Glucose [Mass/Vol] 97 mg/dL Normal 70-100 [facility] Comment on above: Result Comment: [place] Glucose Reference Range is dependent on time and content of last meal. Glucose of more than 200 mg/dL in a nonstressed, ambulatory subject supports the diagnosis of Diabetes Mellitus. ADA recommended reference range Performed By: #### C BC, BMP #### [address] Potassium [Moles/Vol] 3.8 mmol/L Normal 3.5-5.1 [facility] Comment on above: Performed By: #### C BC, BMP #### [address] Sodium [Moles/Vol] 134 mmol/L Low 136-146 [facility] Comment on above: Performed By: #### C BC, BMP #### [address] Urea nitrogen [Mass/Vol] 23 mg/dL Normal 9-23 [facility] Comment on above: Performed By: #### C BC, BMP #### [address] Complete Blood Count Auto Di ffon 01-10-2022 Basophils (Bld) [#/Vol] 0.1 10*3/uL Normal 0.0-0.2 [facility] Comment on above: Result Comment: PERF ORMED BY: [place] [address] PATHOLOGIST [employer] DEVELOPER JAYY SANTA M.D. Performed By: #### C BC, BMP #### [place] [address] [place] Basophils/100 WBC (Bld) 1.0 % Normal . [facility] Comment on above: Performed By: #### C BC, BMP #### [place] [address] [place] Eosinophils (Bld) [#/Vol] 0.0 10*3/uL Normal 0.0-0.45 [facility] Comment on above: Performed By: #### C BC, BMP #### [place] [address] [place] Eosinophils/100 WBC (Bld) 0.3 % Normal . [facility] Comment on above: Performed By: #### C BC, BMP #### [facility] [address] Erythrocyte distribution width (RBC) [Ratio] 15.8 % High 12.0-14.8 [facility] Comment on above: Performed By: #### C BC, BMP #### [facility] [address] Hematocrit (Bld) [Volume fraction] 37.7 % Low 38.8-50.0 [facility] Comment on above: Performed By: #### C BC, BMP #### [facility] [address] Hemoglobin (Bld) [Mass/Vol] 12.5 g/dL Low 13.0-17.0 [facility] Comment on above: Performed By: #### C BC, BMP #### [facility] [address] Lymphocytes (Bld) [#/Vol] 1.0 10*3/uL Normal 1.00-4.8 [facility] Comment on above: Performed By: #### C BC, BMP #### [facility] [address] Lymphocytes/100 WBC (Bld) 10.5 % Normal . [facility] Comment on above: Performed By: #### C BC, BMP #### [facility] [address] MCH (RBC) [Entitic mass] 33.6 pg Normal 27.5-35.2 [facility] Comment on above: Performed By: #### C BC, BMP #### [facility] [address] MCV (RBC) [Entitic vol] 101.5 fL High 83.5-101 [facility] Comment on above: Performed By: #### C BC, BMP #### [facility] [address] Mean Corpuscular HGB Conc 33.1 g/dL Normal 32.5-35.6 [facility] Comment on above: Performed By: #### C BC, BMP #### [facility] [address] [place] [address] [place] Monocytes (Bld) [#/Vol] 1.0 10*3/uL High 0.0-0.8 [facility] Comment on above: Performed By: #### C BC, BMP #### [facility] [address] [place] [address] [place] Monocytes/100 WBC (Bld) 10.7 % Normal . [facility] Comment on above: Performed By: #### C BC, BMP #### [facility] [address] [place] [address] [place] Neutrophils (Bld) [#/Vol] 7.3 10*3/uL Normal 1.8-7.7 [facility] Comment on above: Performed By: #### C BC, BMP #### [facility] [address] [place] [id number] [place] Neutrophils/100 WBC (Bld) 77.5 % Normal . [facility] Comment on above: Performed By: #### C KARTIK, BMP #### [facility] [address] [place] [id number] [place] Nucleated RBC/100 WBC (Bld) [Ratio] 0.0 % Normal 0-0.5 [facility] Comment on above: Performed By: #### C BC, BMP #### [facility] [address] [place] [id number] [place] Platelet mean volume (Bld) [Entitic vol] 8.6 fL Normal 6.6-10.1 [facility] Comment on above: Performed By: #### C BC, BMP #### [facility] [address] [place] [address] [place] Platelets (Bld) [#/Vol] 167 10*3/uL Normal 150-450 [facility] Comment on above: Performed By: #### C BC, BMP #### [facility] [address] [place] [id number] [place] RBC (Bld) [#/Vol] 3.71 10*6/uL Low 3.90-5.60 [facility] Comment on above: Performed By: #### C KARTIK, BMP #### [facility] [address] [place] [address] [place] WBC (Bld) [#/Vol] 9.5 10*3/uL Normal 4.5-11.0 [facility] Comment on above: Performed By: #### C KARTIK, BMP #### [facility] [address] ECG 12 lead ECGon 01-10-2022 ECG 12 lead ECG [facility] Main Axis [address] [place] [address] Electrocardiograph Report Signed Patient: Irineo Wallis Jr MR#: [id number] : 1940 Acct:[id number] Age/Sex: 81 / M ADM Date: 01/09/22 Loc: Room: [address] [place] [id number] Type: DIS IN Attending Dr: Raji Ennis [...] no longer present Confirmed by RAJENDRA TIDWELL [facility], MARV ([id number]) on 01/10/2022 10:31:45 AM Referred By: Electronically Signed By:MARV DREW MD [facility] Transcribed By: MUS Signed By Marv Drew MD, FACC 01/10/22 1031 [facility] Folate [Mass/volume] in Seru m or PlasmaOrdered By: Dharmesh Zavala on 01-10-2022 Folate [Mass/Vol] 8.8 ng/mL >5.9 [facility] Comment on above: Folate reference ran ge: >5.9 ng/mlThe WHO technical consultation on folate and vitamin [id number] has determined that folate concentrations lessthan 4 ng/ml are considered deficient. Glucose mean value [Mass/vol ume] in Blood Estimated from glycated hemoglobinOrdered By: Dharmesh Zavala on 01-10-2022 Average glucose Estimated from glycated hemoglobin (Bld) [Mass/Vol] 114 mg/dL [facility] Hemoglobin A1c percentageOrd ered By: Dharmesh Zavala on 01-10-2022 HbA1c (Bld) [Mass fraction] 5.6 % 4.3-5.6 [facility] Comment on above: Increased risk for d iabetes: 5.7 - 6.4diabetes: >6.4glycemic control for adults with diabetes: <7.0 Ironon 01-10-2022 Iron [Mass/Vol] 13 ug/dL Low 40-160 [facility] Comment on above: Performed By: #### C BC, BMP #### [facility] [address] [place] [id number] [facility] Iron [Mass/volume] in Serum or PlasmaOrdered By: Dharmesh Zavala on 01-10-2022 Iron [Mass/Vol] 13 ug/dL 40-160 [facility] Laboratory - Chemistry and C hemistry - challengeOrdered By: Dharmesh Zavala on 01-10-2022 Cobalamin (Vitamin B12) [Mass/Vol] 458 pg/mL 180-914 [facility] Magnesium [Mass/Vol] 1.9 mg/dL 1.6-2.6 [facility] Natriuretic peptide B (Bld) [Mass/Vol] 679.0 pg/mL 5-100 [facility] Magnesiumon 01-10-2022 Magnesium [Mass/Vol] 1.9 mg/dL Normal 1.6-2.6 [facility] Comment on above: Performed By: #### C BC, BMP #### [facility] [address] [place] [address] [facility] TSH DL <= 0.005 mIU/L QnOrde red By: Dharmesh Zavala on 01-10-2022 TSH Qn 3.99 m[IU]/L 0.45-5.33 [facility] Thyroid Stimulating Hormoneo n 01-10-2022 TSH Qn 3.99 m[IU]/L Normal 0.45-5.33 [facility] Comment on above: Result Comment: PERF ORMED BY: [address] [address] PATHOLOGIST [employer] DEVELOPER JAYY SANTA M.D. Performed By: #### C BC, BMP #### [address] [address] [place] Troponin I High Sensitivityo n 01-10-2022 Troponin I High Sensitivity 110 pg/mL Off scale high 0-20 [facility] Comment on above: Result Comment: Resu lts called at 0808 on 01/10/22 PERFORMED BY: [address] [address] PATHOLOGIST [employer] DEVELOPER JAYY SANTA M.D. Performed By: #### C KARTIK, BMP #### [address] [address] [facility] Troponin I.cardiac [Mass/vol ume] in Serum or Plasma by High sensitivity methodOrdered By: Dharmesh Zavala on 01-10-2022 Troponin I.cardiac High sensitivity method [Mass/Vol] 110 pg/mL 0-20 [facility] Comment on above: Results calledat 080 8 on 01/10/22 US renal BIon 01-10-2022 US renal BI [facility] Main [address] [address] Ultrasound Report Signed Patient: Irineo Wallis MR#: [id number] : 1940 Acct:[id number] Age/Sex: 81 / M ADM Date: 01/09/22 Loc: Room: [address] [place] [id number] Type: ADM IN Attending Dr: Dharmesh Zavala [...] Esa Cardoso M.D.01/10/2022 9:07 AM Dictation Location: [place] [address] Tech: Criss Bennie Transcribed By: NOLVIA 01/10/22906 Dictated By: Esa Cardoso DO 01/10/[address] Signed By: 01/10/22906 Normal [facility] Vit. B12/Folate Profileon Cobalamin (Vitamin B12) [Mass/Vol] 458 pg/mL Normal 180-914 [facility] Comment on above: Performed By: #### C KARTIK, BMP #### [facility] [address] [place] [address] Folate 8.8 ng/mL Normal >5.9 [facility] Comment on above: Result Comment: Suzette te reference range: >5.9 ng/ml The WHO technical consultation on folate and vitamin b12 deficiencies has determined that folate concentrations less than 4 ng/ml are considered deficient. Performed By: #### C KARTIK, BMP #### [facility] [address] [place] [address] Activated partial thrombopla stin time (aPTT) in platelet poor plasma by coagulation aOrdered By: Victor Manuel Paiz on 01-09-2022 aPTT Coag (PPP) [Time] 39.1 s 25.1-36.5 [facility] Automated erythrocytes count in urine sediment (number/area)Ordered By: Victor Manuel Paiz on 01-09-2022 RBC Auto (Urine sed) [#/Area] 0-1 [HPF] 0-4 [facility] Automated leukocytes count i n urine sediment (number/area)Ordered By: Victor Manuel Paiz on 01-09-2022 WBC Auto (Urine sed) [#/Area] 5-9 [HPF] 0-4 [facility] B-Type Natriuretic Peptideon 01-09-2022 Natriuretic peptide B (Bld) [Mass/Vol] 1810.0 pg/mL High 5-100 [facility] Comment on above: Result Comment: PERF ORMED BY: [place] [address] PATHOLOGIST [employer] DEVELOPER JAYY SANTA M.D. Performed By: #### B MP, CBC #### [facility] [address] [place] [address] Basic Metabolic Panelon Anion gap [Moles/Vol] 14.9 mmol/L Normal 6.0-15.0 [facility] Comment on above: Performed By: #### B MP, CBC #### [address] Calcium [Mass/Vol] 9.2 mg/dL Normal 8.2-10.2 [facility] Comment on above: Performed By: #### B MP, CBC #### [facility] [address] [place] [address] Chloride [Moles/Vol] 100 mmol/L Normal 95-114 [facility] Comment on above: Performed By: #### B MP, CBC #### [address] CO2 [Moles/Vol] 25.2 mmol/L Normal 22.0-30.0 [facility] Comment on above: Performed By: #### B MP, CBC #### [facility] [address] [place] [address] [place] Creatinine [Mass/Vol] 1.62 mg/dL High 0.64-1.27 [facility] Comment on above: Performed By: #### B MP, CBC #### [facility] [address] [place] [address] [place] Creatinine Clr Calc Pharmacy 39.44 Normal [facility] Comment on above: Result Comment: PERF ORMED BY: [place] [address] PATHOLOGIST [employer] DEVELOPER JAYY SANTA M.D. Performed By: #### B MP, CBC #### [facility] [address] [place] [address] [place] Estimated GFR ( Amarilis 50 [facility] Comment on above: Result Comment: GFR estimated reference range: According to KDOQI guidelines, <60 ml/min/1.73m2 is sufficient to diagnose a patient with chronic kidney disease. Performed By: #### B MP, CBC #### [facility] [address] [place] [address] [place] Estimated GFR (Non- Am 41 [facility] Comment on above: Performed By: #### B MP, CBC #### [address] Glucose [Mass/Vol] 99 mg/dL Normal 70-100 [facility] Comment on above: Result Comment: [place] Glucose Reference Range is dependent on time and content of last meal. Glucose of more than 200 mg/dL in a nonstressed, ambulatory subject supports the diagnosis of Diabetes Mellitus. ADA recommended reference range Performed By: #### B MP, CBC #### [address] Potassium [Moles/Vol] 4.1 mmol/L Normal 3.5-5.1 [facility] Comment on above: Performed By: #### B MP, CBC #### [place] [address] [place] Sodium [Moles/Vol] 136 mmol/L Normal 136-146 [facility] Comment on above: Performed By: #### B MP, CBC #### [place] [address] [place] Urea nitrogen [Mass/Vol] 21 mg/dL Normal 9-23 [facility] Comment on above: Performed By: #### B MP, CBC #### [place] [address] [place] Basophils Auto (Bld) [#/Vol] Ordered By: Victor Manuel Paiz on 01-09-2022 Basophils (Bld) [#/Vol] 0.1 10*3/uL 0.0-0.2 [facility] Basophils/100 WBC Auto (Bld) Ordered By: Victor Manuel Paiz on 01-09-2022 Basophils/100 WBC (Bld) 1.0 % . [facility] Bilirubin Test strip Ql (U)O rdered By: Victor Manuel Paiz on 01-09-2022 Bilirubin Ql (U) Negative Negative [facility] COVID-19 Antigenon 2 COVID-19 Antigen Healthcare Worker?: [...] developed and its performance characteristic determined by [employer] and validated at [facility]. This test has not been [...] for SARS Antigen by MADHAVI PERFORMED BY: [facility] [place] [address] PATHOLOGIST [employer] DEVELOPER JAYY SANTA M.D. Normal [facility] Comment on above: Performed By: #### C OVID-19 MARS, SOFIANEG #### [facility] [address] [place] [id number] [facility] COVID-19 FRMCon 01-09-2022 SARS-CoV-2 (COVID-19) RNA SMITHA+probe Ql (Unsp spec) Negative Normal Negative [facility] Comment on above: Order Comment: Healt hcare Worker?: N Result Comment: Testing for SARS-CoV-2 by RT-PCR This test was developed and its performance characteristics determined by [employer] [employer] and validated at the [facility]. This test has not been [...] is terminated or revoked sooner. PERFORMED BY: [place] [address] PATHOLOGIST MI[employer]OSOFT DEVELOPER JAYY SANTA M.D. Performed By: #### B MP, CBC #### [facility] [address] [place] [address] COVID-19 Positive/NegativeOr dered By: Victor Manuel Paiz on 01-09-2022 SARS-CoV-2 (COVID-19) N gene SMITHA+probe Ql (Resp) Negative Negative [facility] Comment on above: Testing for SARS-CoV -2 by RT-PCRThis test was developed and its performance characteristics determined by [employer] and validated at the [facility]. This test has not been [...] (COVID-19) Ag IA.rapid Ql (Resp) Negative Negative [facility] Comment on above: This is a duplicate [place] SARS Antigen (MADHAVI) result to be used for statistical tracking purpose only. CT cervical spine wo conon 1 03-11-2021 CT cervical spine wo [facility] [place] [address] CT Scan Report Signed Patient: Irineo Wallis Jr MR#: [id number] : 1940 Acct:[id number] Age/Sex: 81 / M ADM Date: 01/09/22 Loc: ER Room: Type: [facility] ER Attending Dr: Copies to: Victor Manuel [...] Esa Cardoso M.D.01/09/2022 1:02 PM Dictation Location: [facility] Transcribed By: NOLVIA 01/09/22 1302 Dictated By: Esa Cardoso DO 01/09/22 1300 Signed By: 01/09/22 1302 Normal [facility] CT head/brain wo conon 01-09 CT head/brain wo con [facility] Main Axis [address] [place] [address] CT Scan Report Signed Patient: Irineo Wallis Jr MR#: [id number] : 1940 Acct:[id number] Age/Sex: 81 / M ADM Date: 01/09/22 Loc: ER Room: Type: [facility] ER Attending Dr: Copies to: Victor Manuel [...] Esa Cardoso M.D.01/09/2022 1:00 PM Dictation Location[facility] Transcribed By: NOLVIA 01/09/22 1300 Dictated By: Esa Cardoso DO 01/09/22 1259 Signed By: 01/09/22 [address] [facility] [address] lumbar spine wo conon CT lumbar spine wo [facility] [place] [address] CT Scan Report Signed Patient: Irineo Wallis Jr MR#: [id number] : 1940 Acct:[id number] Age/Sex: 81 / M ADM Date: 01/09/22 Loc: ER Room: Type: [facility] ER Attending Dr: Copies to: Victor Manuel [...] Esa Cardoso M.D.01/09/2022 1:11 PM Dictation Location: [place] [address] Transcribed By: [facility] 01/09/22 1311 Dictated By: Esa Cardoso DO 01/09/22 1309 Signed By: 01/09/22 [address] [facility] [address] thoracic spine wo conon 1 03-11-2021 CT thoracic spine wo [facility] [place] [address] CT Scan Report Signed Patient: Irineo Wallis Jr MR#: [id number] : 1940 Acct:[id number] Age/Sex: 81 / M ADM Date: 01/09/22 Loc: ER Room: Type: [facility] ER Attending Dr: Copies to: Victor Manuel [...] Esa Cardoso M.D.01/09/2022 1:06 PM Dictation Location: [place] [address] Transcribed By: [facility] 01/09/22 1306 Dictated By: Esa Cardoso DO 01/09/22 1304 Signed By: 01/09/22 1306 Normal [facility] Color Auto (U)Ordered By: Brigtite Paiz on 01-09-2022 Color (U) Yellow Yellow [facility] Complete Blood Count Auto Di ffon 01-09-2022 Basophils (Bld) [#/Vol] 0.1 10*3/uL Normal 0.0-0.2 [facility] Comment on above: Result Comment: PERF ORMED BY: [place] [address] PATHOLOGIST [employer] DEVELOPER JAYY SANTA M.D. Performed By: #### B MP, CBC #### [address] Basophils/100 WBC (Bld) 1.0 % Normal . [facility] Comment on above: Performed By: #### B MP, CBC #### [facility] [address] Eosinophils (Bld) [#/Vol] 0.0 10*3/uL Normal 0.0-0.45 [facility] Comment on above: Performed By: #### B MP, CBC #### [facility] [address] Eosinophils/100 WBC (Bld) 0.1 % Normal . [facility] Comment on above: Performed By: #### B MP, CBC #### [address] Erythrocyte distribution width (RBC) [Ratio] 15.9 % High 12.0-14.8 [facility] Comment on above: Performed By: #### B MP, CBC #### [address] Hematocrit (Bld) [Volume fraction] 36.5 % Low 38.8-50.0 [facility] Comment on above: Performed By: #### B MP, CBC #### [address] Hemoglobin (Bld) [Mass/Vol] 12.1 g/dL Low 13.0-17.0 [facility] Comment on above: Performed By: #### B MP, CBC #### [place] [address] [place] Lymphocytes (Bld) [#/Vol] 0.8 10*3/uL Low 1.00-4.8 [facility] Comment on above: Performed By: #### B MP, CBC #### [address] Lymphocytes/100 WBC (Bld) 13.5 % Normal . [facility] Comment on above: Performed By: #### B MP, CBC #### [address] MCH (RBC) [Entitic mass] 33.7 pg Normal 27.5-35.2 [facility] Comment on above: Performed By: #### B MP, CBC #### [facility] [address] MCV (RBC) [Entitic vol] 101.5 fL High 83.5-101 [facility] Comment on above: Performed By: #### B MP, CBC #### [facility] [address] Mean Corpuscular HGB Conc 33.2 g/dL Normal 32.5-35.6 [facility] Comment on above: Performed By: #### B MP, CBC #### [facility] [address] Monocytes (Bld) [#/Vol] 0.9 10*3/uL High 0.0-0.8 [facility] Comment on above: Performed By: #### B MP, CBC #### [address] Monocytes/100 WBC (Bld) 14.2 % Normal . [facility] Comment on above: Performed By: #### B MP, CBC #### [facility] [address] [place] [address] [place] Neutrophils (Bld) [#/Vol] 4.3 10*3/uL Normal 1.8-7.7 [facility] Comment on above: Performed By: #### B MP, CBC #### [place] [address] [place] Neutrophils/100 WBC (Bld) 71.2 % Normal . [facility] Comment on above: Performed By: #### B MP, CBC #### [facility] [address] [place] [address] [place] Nucleated RBC/100 WBC (Bld) [Ratio] 0.1 % Normal 0-0.5 [facility] Comment on above: Performed By: #### B MP, CBC #### [facility] [address] Platelet mean volume (Bld) [Entitic vol] 8.3 fL Normal 6.6-10.1 [facility] Comment on above: Performed By: #### B MP, CBC #### [facility] [address] Platelets (Bld) [#/Vol] 162 10*3/uL Normal 150-450 [facility] Comment on above: Performed By: #### B MP, CBC #### [address] RBC (Bld) [#/Vol] 3.59 10*6/uL Low 3.90-5.60 [facility] Comment on above: Performed By: #### B MP, CBC #### [address] WBC (Bld) [#/Vol] 6.0 10*3/uL Normal 4.5-11.0 [facility] Comment on above: Performed By: #### B MP, CBC #### [address] Creatine Kinaseon 01-09-2022 CK [Catalytic activity/Vol] 231 U/L Normal 22-269 [facility] Comment on above: Performed By: #### B MP, CBC #### [address] Creatine kinase [Enzymatic a ctivity/volume] in Serum or PlasmaOrdered By: Victor Manuel Paiz on 01-09-2022 CK [Catalytic activity/Vol] 231 U/L 22-269 [facility] Creatinine Kinase MBon 01-09 CK.MB [Mass/Vol] 5.4 ng/mL Normal 0.6-6.3 [facility] Comment on above: Performed By: #### B MP, CBC #### [address] CKMB Relative Index 2.3 % Normal 0.00-2.50 [facility] Comment on above: Performed By: #### B MP, CBC #### [address] Creatinine and Glomerular fi ltration rate.predicted panel (S/P/Bld)Ordered By: Victor Manuel Paiz on 01-09-2022 Creatinine [Mass/Vol] 1.62 mg/dL 0.64-1.27 [facility] Dipstick and Microscopicon 1 03-11-2021 Appearance (U) Cloudy Critically abnormal Clear [facility] Comment on above: Order Comment: Name Collection Type:: Clean-Voided Midstream Performed By: #### B MP, CBC #### [facility] [address] [place] [address] [place] Bacteria,Urine None Seen Normal None Seen [facility] Comment on above: Order Comment: Name Collection Type:: Clean-Voided Midstream Performed By: #### B MP, CBC #### [facility] [address] [place] [address] [place] Bilirubin,Urine Negative Normal Negative [facility] Comment on above: Order Comment: Name Collection Type:: Clean-Voided Midstream Performed By: #### B MP, CBC #### [facility] [address] [place] [address] [place] Color (U) Yellow Normal Yellow [facility] Comment on above: Order Comment: Name Collection Type:: Clean-Voided Midstream Performed By: #### B MP, CBC #### [facility] [address] [place] [address] [place] Glucose Ql (U) Normal Normal Normal [facility] Comment on above: Order Comment: Name Collection Type:: Clean-Voided Midstream Performed By: #### B MP, CBC #### [facility] [address] [place] [id number] [place] Hyaline Casts,Urine 0-8 Normal 0-8 [facility] Comment on above: Order Comment: Name Collection Type:: Clean-Voided Midstream Performed By: #### B MP, CBC #### [facility] [address] [place] [id number] [place] Ketones Ql (U) Trace High Negative [facility] Comment on above: Order Comment: Name Collection Type:: Clean-Voided Midstream Performed By: #### B MP, CBC #### [facility] [address] [place] [id number] [place] Leukocyte esterase Test strip Ql (U) 2+ High Negative [facility] Comment on above: Order Comment: Name Collection Type:: Clean-Voided Midstream Performed By: #### B MP, CBC #### [address] Nitrite,Urine Negative Normal Negative [facility] Comment on above: Order Comment: Name Collection Type:: Clean-Voided Midstream Performed By: #### B MP, CBC #### [address] Occult Blood,Urine Negative Normal Negative [facility] Comment on above: Order Comment: Name Collection Type:: Clean-Voided Midstream Result Comment: PERF ORMED BY: [place] [address] PATHOLOGIST [employer] JAYY SANTA M.D. Performed By: #### B MP, CBC #### [address] pH (U) 5.5 [pH] Normal 5.0-9.0 [facility] Comment on above: Order Comment: Name Collection Type:: Clean-Voided Midstream Performed By: #### B MP, CBC #### [address] Protein,Urine Trace High Negative [facility] Comment on above: Order Comment: Name Collection Type:: Clean-Voided Midstream Performed By: #### B MP, CBC #### [place] [address] [place] RBC LM.HPF (Urine sed) [#/Area] 0 /[HPF] Normal 0-4 [facility] Comment on above: Order Comment: Name Collection Type:: Clean-Voided Midstream Performed By: #### B MP, CBC #### [address] Specificy [place],Urine 1.018 Normal 1.001-1.03 0 [facility] Comment on above: Order Comment: Name Collection Type:: Clean-Voided Midstream Performed By: #### B MP, CBC #### [facility] [address] [place] [address] Squamous Epithelial Cell,Urine 0-1 Normal 0-2 [facility] Comment on above: Order Comment: Name Collection Type:: Clean-Voided Midstream Performed By: #### B MP, CBC #### [address] Urobilinogen,Urine Normal Normal Normal [facility] Comment on above: Order Comment: Name Collection Type:: Clean-Voided Midstream Performed By: #### B MP, CBC #### [address] WBC,Urine 5-9 High 0-4 [facility] Comment on above: Order Comment: Name Collection Type:: Clean-Voided Midstream Performed By: #### B MP, CBC #### [address] Yeast,Urine None Seen Normal None Seen [facility] Comment on above: Order Comment: Name Collection Type:: Clean-Voided Midstream Result Comment: PERF ORMED BY: [place] [address] PATHOLOGIST [employer] JAYY SANTA M.D. Performed By: #### B MP, CBC #### [address] ECG 12 lead ECGon 01-09-2022 ECG 12 lead ECG [facility] Main Axis [address] [place] [address] Electrocardiograph Report Signed Patient: Irineo Wallis Jr MR#: [id number] : 1940 Acct:[id number] Age/Sex: 81 / M ADM Date: 01/09/22 Loc: Room: [address] [place] [id number] Type: DIS IN Attending Dr: Raji Ennis [...] Victor Manuel Paiz MD 07/26 1548 Normal [facility] Eosinophils Auto (Bld) [#/Vo l]Ordered By: Victor Manuel Paiz on 01-09-2022 Eosinophils (Bld) [#/Vol] 0.0 10*3/uL 0.0-0.45 [facility] Eosinophils/100 WBC Auto (Bl d)Ordered By: Victor Manuel Paiz on 01-09-2022 Eosinophils/100 WBC (Bld) 0.1 % . [facility] Erythrocyte distribution wid th Auto (RBC) [Ratio]Ordered By: Victor Manuel Paiz on 01-09-2022 Erythrocyte distribution width (RBC) [Ratio] 15.9 % 12.0-14.8 [facility] Estimated glomerular filtrat ion rate (GFR) non- AmericanOrdered By: Victor Manuel Paiz on 01-09-2022 GFR/1.73 sq M.predicted among non-blacks MDRD (S/P/Bld) [Vol rate/Area] 41 mL/Min [facility] Hematocrit Auto (Bld) [Volum e fraction]Ordered By: Victor Manuel Paiz on 01-09-2022 Hematocrit (Bld) [Volume fraction] 36.5 % 38.8-50.0 [facility] Hemoglobin [Mass/volume] in BloodOrdered By: Victor Manuel Paiz on 01-09-2022 Hemoglobin (Bld) [Mass/Vol] 12.1 g/dL 13.0-17.0 [facility] Ketones Auto test strip (U) [Mass/Vol]Ordered By: Victor Manuel Paiz on 01-09-2022 Ketones (U) [Mass/Vol] Trace Negative [facility] Laboratory - Chemistry and C hemistry - challengeOrdered By: Victor Manuel Paiz on 01-09-2022 Natriuretic peptide B (Bld) [Mass/Vol] 1810.0 pg/mL 5-100 [facility] - CoagulationOrde red By: Victor Manuel Paiz on 01-09-2022 PT Coag (PPP) [Time] 28.4 s 9.0-12.9 [facility] Laboratory - Hematology and Cell countsOrdered By: Victor Manuel Paiz on 01-09-2022 Nucleated RBC/100 WBC (Bld) [Ratio] 0.1 % 0-0.5 [facility] - UrinalysisOrder ed By: Victor Manuel Paiz on 01-09-2022 Hyaline casts LM Ql (Urine sed) 0-8 [LPF] 0-8 [facility] Leukocytes [#/volume] in Blo od by Automated countOrdered By: Victor Manuel Paiz on 01-09-2022 WBC (Bld) [#/Vol] 6.0 10*3/uL 4.5-11.0 [facility] Lymphocytes Auto (Bld) [#/Vo l]Ordered By: Victor Manuel Paiz on 01-09-2022 Lymphocytes (Bld) [#/Vol] 0.8 10*3/uL 1.00-4.8 [facility] Lymphocytes/100 WBC Auto (Bl d)Ordered By: Victor Manuel Paiz on 01-09-2022 Lymphocytes/100 WBC (Bld) 13.5 % . [facility] MCH Auto (RBC) [Entitic mass ]Ordered By: Victor Manuel Paiz on 01-09-2022 MCH (RBC) [Entitic mass] 33.7 pg 27.5-35.2 [facility] MCHC Auto (RBC) [Mass/Vol]Or dered By: Victor Manuel Paiz on 01-09-2022 MCHC (RBC) [Mass/Vol] 33.2 g/dL 32.5-35.6 [facility] MCV Auto (RBC) [Entitic vol] Ordered By: Victor Manuel Paiz on 01-09-2022 MCV (RBC) [Entitic vol] 101.5 fL 83.5-101 [facility] Monocytes Auto (Bld) [#/Vol] Ordered By: Victor Manuel Paiz on 01-09-2022 Monocytes (Bld) [#/Vol] 0.9 10*3/uL 0.0-0.8 [facility] Monocytes/100 WBC Auto (Bld) Ordered By: Victor Manuel Paiz on 01-09-2022 Monocytes/100 WBC (Bld) 14.2 % . [facility] Neutrophils Auto (Bld) [#/Vo l]Ordered By: Victor Manuel Paiz on 01-09-2022 Neutrophils (Bld) [#/Vol] 4.3 10*3/uL 1.8-7.7 [facility] Neutrophils/100 WBC Auto (Bl d)Ordered By: Victor Manuel Paiz on 01-09-2022 Neutrophils/100 WBC (Bld) 71.2 % . [facility] Nitrite Test strip Ql (U)Ord ered By: Victor Manuel Paiz on 01-09-2022 Nitrite Ql (U) Negative Negative [facility] No Panel InformationOrdered By: Victor Manuel Paiz on 01-09-2022 SARS Antigen (LFIA) [facility] Estimated GFR () 50 mL/Min [facility] Comment on above: GFR estimated refere nce range: According to KDOQI guidelines, <60 ml/min/1.73m2 is sufficient to diagnose a patient with chronic kidney disease. Pharmacy Creatinine Clearance (Chem 39.44 [facility] SARS Antigen (LFIA) [facility] Partial Thromboplastin Timeo n 01-09-2022 aPTT Coag (Bld) [Time] 39.1 s High 25.1-36.5 [facility] Comment on above: Result Comment: PERF ORMED BY: [place] [address] PATHOLOGIST [employer] JAYY SANTA M.D. Performed By: #### B MP, CBC #### [address] Platelet mean volume Auto (B ld) [Entitic vol]Ordered By: Victor Manuel Paiz on 01-09-2022 Platelet mean volume (Bld) [Entitic vol] 8.3 fL 6.6-10.1 [facility] Platelet poor plasma interna tional normalized ratio (INR) by coagulation assay (relatOrdered By: Victor Manuel Paiz on 01-09-2022 INR Coag (PPP) [Relative time] 2.5 {INR} [facility] Comment on above: INR Therapeutic [...] 01-09-2022 Platelets (Bld) [#/Vol] 162 10*3/uL 150-450 [facility] Protein Auto test strip (U) [Mass/Vol]Ordered By: Victor Manuel Paiz on 01-09-2022 Protein (U) [Mass/Vol] Trace mg/dL Negative F [facility] Prothrombin Time INRon 01-09 INR Coag (PPP) [Relative time] 2.5 {INR} Normal [facility] Comment on above: Result Comment: [...] Performed By: #### B MARY, CBC #### [facility] [address] PT Coag (PPP) [Time] 28.4 s High 9.0-12.9 [facility] Comment on above: Performed By: #### B MARY, CBC #### [facility] [address] RBC Auto (Bld) [#/Vol]Ordere d By: Victor Manuel Paiz on 01-09-2022 RBC (Bld) [#/Vol] 3.59 10*6/uL 3.90-5.60 [facility] Serum or plasma anion gap de terminationOrdered By: Victor Manuel Paiz on 01-09-2022 Anion gap [Moles/Vol] 14.9 mmol/L 6.0-15.0 [facility] Serum or plasma calcium alistair urement (mass/volume)Ordered By: Victor Manuel Paiz on 01-09-2022 Calcium [Mass/Vol] 9.2 mg/dL 8.2-10.2 [facility] Serum or plasma chloride jaymie surement (moles/volume)Ordered By: Victor Manuel Paiz on 01-09-2022 Chloride [Moles/Vol] 100 mmol/L 95-114 [facility] Serum or plasma creatine kin ase MB (CKMB)/total creatine kinase (CK) ratio by calculaOrdered By: Victor Manuel Paiz on 01-09-2022 CK.MB Calc [Catalytic fraction] 2.3 % 0.00-2.50 [facility] Serum or plasma creatine kin ase MB measurement (mass/volume)Ordered By: Victor Manuel Paiz on 01-09-2022 CK.MB [Mass/Vol] 5.4 ng/mL 0.6-6.3 [facility] Serum or plasma glucose alistair urement (mass/volume)Ordered By: Victor Manuel Paiz on 01-09-2022 Glucose [Mass/Vol] 99 mg/dL 70-100 [facility] Comment on above: ADA recommended refe rence rangeRandom Glucose Reference Range is dependent on time and content of last meal. Glucose of more than 200 mg/dL in a nonstressed, ambulatory subject supports the diagnosis of Diabetes Mellitus. Serum or plasma potassium me asurement (moles/volume)Ordered By: Victor Manuel Paiz on 01-09-2022 Potassium [Moles/Vol] 4.1 mmol/L 3.5-5.1 [facility] Serum or plasma sodium measu rement (moles/volume)Ordered By: Victor Manuel Paiz on 01-09-2022 Sodium [Moles/Vol] 136 mmol/L 136-146 [facility] Serum or plasma total carbon dioxide measurement (moles/volume)Ordered By: Victor Manuel Paiz on 01-09-2022 CO2 [Moles/Vol] 25.2 mmol/L 22.0-30.0 [facility] Serum or plasma urea nitroge n measurement (mass/volume)Ordered By: Victor Manuel Paiz on 01-09-2022 Urea nitrogen [Mass/Vol] 21 mg/dL - [facility] Mars Ag Negativeon 01-10-20 Mars Ag Negative Negative Normal Negative [facility] Comment on above: Result Comment: This is a duplicate Mars SARS Antigen (MADHAVI) result to be used for statistical tracking purpose only. PERFORMED BY: [place] [address] PATHOLOGIST [employer] JAYY SANTA M.D. Performed By: #### C OVID-19 MARS, SOFIANEG #### [facility] [address] [place] [address] Specific gravity Auto test s trip (U) [Rel density]Ordered By: Victor Manuel Paiz on 01-09-2022 Specific gravity (U) [Rel density] 1.018 1.001-1.03 0 [facility] Squamous epithelial cells de tection in urine sediment by light microscopyOrdered By: Victor Manuel Paiz on 01-09-2022 Epithelial cells.squamous LM Ql (Urine sed) 0-1 [HPF] 0-2 [facility] Troponin I High Sensitivityo n 01-09-2022 Troponin I High Sensitivity 101 pg/mL Off scale high 0-20 [facility] Comment on above: Result Comment: Resu lts called at 1208 on 01/09/22 PERFORMED BY: [place] [address] PATHOLOGIST [employer] JAYY SANTA M.D. Performed By: #### B MP, CBC #### [facility] [address] [place], [place] [id number] [facility] Troponin I.cardiac [Mass/vol ume] in Serum or Plasma by High sensitivity methodOrdered By: Victor Manuel Paiz on 01-09-2022 Troponin I.cardiac High sensitivity method [Mass/Vol] 101 pg/mL 0-20 [facility] Comment on above: Results calledat 120 8 on 01/09/22 Urine Cultureon 01-09-2022 Bacteria identified Cx Nom (U) 30,000 colonies/ml mixed bacterial skin contaminants 2 Days PERFORMED BY: [place] [address] PATHOLOGIST [employer] JAYY SANTA M.D. Normal [facility] Comment on above: Performed By: #### B MP, CBC #### [address] Urine bacteria detection by automated methodOrdered By: Victor Manuel Paiz on 01-09-2022 Bacteria Auto Ql (U) None seen None Seen [facility] Urine clarity by refractomet ry automatedOrdered By: Victor Manuel Paiz on 01-09-2022 Clarity Refractometry automated (U) Cloudy Clear [facility] Urine glucose measurement by automated test strip (mass/volume)Ordered By: Victor Manuel Paiz on 01-09-2022 Glucose Auto test strip (U) [Mass/Vol] Normal mg/dL Normal [facility] Urine hemoglobin detection b y automated test stripOrdered By: Victor Manuel Paiz on 01-09-2022 Hemoglobin Auto test strip Ql (U) Negative Negative [facility] Urine leukocyte esterase det ection by automated test stripOrdered By: Victor Manuel Paiz on 01-09-2022 Leukocyte esterase Auto test strip Ql (U) 2+ Negative [facility] Urobilinogen Auto test strip (U) [Mass/Vol]Ordered By: Victor Manuel Paiz on 01-09-2022 Urobilinogen (U) [Mass/Vol] Normal mg/dL Normal [facility] XR chest 1V portableon 01-09 XR chest 1V portable [facility] Main Axis [address] [place] [address] XRay Report Signed Patient: Irineo Wallis Jr MR#: [id number] : 1940 Acct:[id number] Age/Sex: 81 / M ADM Date: 01/09/22 Loc: ER Room: Type: [facility] ER Attending Dr: Copies to: Victor Manuel [...] Esa Cardoso M.D.01/09/2022 10:11 AM Dictation Location: [place] [address] Transcribed By: [facility] 01/09/22 1011 Dictated By: Esa Cardoso DO 01/09/22 1010 Signed By: 01/09/22 1011 Normal [facility] Yeast detection in urine sed iment by light microscopyOrdered By: Victor Manuel Paiz on 01-09-2022 Yeast LM Ql (Urine sed) None seen [HPF] None Seen [facility] pH Auto test strip (U)Ordere d By: Victor Manuel Paiz on 01-09-2022 pH (U) 5.5 [pH] 5.0-9.0 [facility] Body fluid albumin measureme nt (mass/volume)Ordered By: Feliciano Ga on 12-17-2021 Albumin (Body fld) [Mass/Vol] 3.5 g/dL 3.2-5.5 [facility] Comprehensive Metabolic Pane haley 12-17-2021 Albumin [Mass/Vol] 3.5 g/dL Normal 3.2-5.5 [facility] Comment on above: Order Comment: Reaso n for Exam Hypothyroidism, unspecified;Hypertension;Atrial fibrillation Reason for Exam Hypothyroidism, unspecified Performed By: #### C BC, BMP #### [facility] [address] [place] [address] [place] Albumin/Globulin [Mass ratio] 1.6 {ratio} Normal [facility] Comment on above: Order Comment: Reaso n for Exam Hypothyroidism, unspecified;Hypertension;Atrial fibrillation Reason for Exam Hypothyroidism, unspecified Performed By: #### C BC, BMP #### [facility] [address] [place] [address] [place] ALP [Catalytic activity/Vol] 92 U/L Normal 32-92 [facility] Comment on above: Order Comment: Reaso n for Exam Hypothyroidism, unspecified;Hypertension;Atrial fibrillation Reason for Exam Hypothyroidism, unspecified Performed By: #### C BC, BMP #### [facility] [address] [place] [id number] [facility] ALT [Catalytic activity/Vol] 19 U/L Normal 10-60 [facility] Comment on above: Order Comment: Reaso n for Exam Hypothyroidism, unspecified;Hypertension;Atrial fibrillation Reason for Exam Hypothyroidism, unspecified Performed By: #### C BC, BMP #### [facility] [address] [place], [place] [id number] [facility] Anion gap [Moles/Vol] 15.3 mmol/L High 6.0-15.0 [facility] Comment on above: Order Comment: Reaso n for Exam Hypothyroidism, unspecified;Hypertension;Atrial fibrillation Reason for Exam Hypothyroidism, unspecified Performed By: #### C BC, BMP #### [facility] [address] [place] [address] AST [Catalytic activity/Vol] 27 U/L Normal 10-42 [facility] Comment on above: Order Comment: Reaso n for Exam Hypothyroidism, unspecified;Hypertension;Atrial fibrillation Reason for Exam Hypothyroidism, unspecified Performed By: #### C BC, BMP #### [facility] [address] [place] [address] Bilirubin [Mass/Vol] 1.2 mg/dL Normal 0.3-1.2 [facility] Comment on above: Order Comment: Reaso n for Exam Hypothyroidism, unspecified;Hypertension;Atrial fibrillation Reason for Exam Hypothyroidism, unspecified Performed By: #### C BC, BMP #### [facility] [address] [place] [address] [place] Calcium [Mass/Vol] 9.6 mg/dL Normal 8.2-10.2 [facility] Comment on above: Order Comment: Reaso n for Exam Hypothyroidism, unspecified;Hypertension;Atrial fibrillation Reason for Exam Hypothyroidism, unspecified Performed By: #### C BC, BMP #### [facility] [address] [place] [address] [place] Chloride [Moles/Vol] 103 mmol/L Normal 95-114 [facility] Comment on above: Order Comment: Reaso n for Exam Hypothyroidism, unspecified;Hypertension;Atrial fibrillation Reason for Exam Hypothyroidism, unspecified Performed By: #### C BC, BMP #### [address] [place] [address] [place] CO2 [Moles/Vol] 25.2 mmol/L Normal 22.0-30.0 [facility] Comment on above: Order Comment: Reaso n for Exam Hypothyroidism, unspecified;Hypertension;Atrial fibrillation Reason for Exam Hypothyroidism, unspecified Performed By: #### C BC, BMP #### [facility] [address] Creatinine [Mass/Vol] 1.29 mg/dL High 0.64-1.27 [facility] Comment on above: Order Comment: Reaso n for Exam Hypothyroidism, unspecified;Hypertension;Atrial fibrillation Reason for Exam Hypothyroidism, unspecified Performed By: #### C BC, BMP #### [address] Estimated GFR ( Amarilis > 60 [facility] Comment on above: Order Comment: Reaso n for Exam Hypothyroidism, unspecified;Hypertension;Atrial fibrillation Reason for Exam Hypothyroidism, unspecified Result Comment: GFR estimated reference range: According to KDOQI guidelines, <60 ml/min/1.73m2 is sufficient to diagnose a patient with chronic kidney disease. Performed By: #### C BC, BMP #### [facility] [address] [place] [address] Estimated GFR (Non- Am 54 [facility] Comment on above: Order Comment: Reaso n for Exam Hypothyroidism, unspecified;Hypertension;Atrial fibrillation Reason for Exam Hypothyroidism, unspecified Performed By: #### C BC, BMP #### [address] Globulin (S) [Mass/Vol] 2.2 g/dL [facility] Comment on above: Order Comment: Reaso n for Exam Hypothyroidism, unspecified;Hypertension;Atrial fibrillation Reason for Exam Hypothyroidism, unspecified Performed By: #### C BC, BMP #### [address] Glucose [Mass/Vol] 84 mg/dL Normal 70-100 [facility] Comment on above: Order Comment: Reaso n for Exam Hypothyroidism, unspecified;Hypertension;Atrial fibrillation Reason for Exam Hypothyroidism, unspecified Result Comment: [facility] Glucose Reference Range is dependent on time and content of last meal. Glucose of more than 200 mg/dL in a nonstressed, ambulatory subject supports the diagnosis of Diabetes Mellitus. ADA recommended reference range Performed By: #### C BC, BMP #### [facility] [address] Potassium [Moles/Vol] 4.5 mmol/L Normal 3.5-5.1 [facility] Comment on above: Order Comment: Reaso n for Exam Hypothyroidism, unspecified;Hypertension;Atrial fibrillation Reason for Exam Hypothyroidism, unspecified Performed By: #### C BC, BMP #### [facility] [address] [place] [address] [place] Protein [Mass/Vol] 5.7 g/dL Low 6.1-7.9 [facility] Comment on above: Order Comment: Reaso n for Exam Hypothyroidism, unspecified;Hypertension;Atrial fibrillation Reason for Exam Hypothyroidism, unspecified Performed By: #### C BC, BMP #### [facility] [address] [place] [id number] [facility] Sodium [Moles/Vol] 139 mmol/L Normal 136-146 [facility] Comment on above: Order Comment: Reaso n for Exam Hypothyroidism, unspecified;Hypertension;Atrial fibrillation Reason for Exam Hypothyroidism, unspecified Performed By: #### C BC, BMP #### [facility] [address] [place] [address] [place] Urea nitrogen [Mass/Vol] 16 mg/dL Normal 9-23 [facility] Comment on above: Order Comment: Reaso n for Exam Hypothyroidism, unspecified;Hypertension;Atrial fibrillation Reason for Exam Hypothyroidism, unspecified Performed By: #### C BC, BMP #### [facility] [address] [place] [id number] [place] Creatinine and Glomerular fi ltration rate.predicted panel (S/P/Bld)Ordered By: Feliciano Ga on 12-17-2021 Creatinine [Mass/Vol] 1.29 mg/dL 0.64-1.27 [facility] Estimated glomerular filtrat ion rate (GFR) non- AmericanOrdered By: Feliciano Ga on 12-17-2021 GFR/1.73 sq M.predicted among non-blacks MDRD (S/P/Bld) [Vol rate/Area] 54 mL/Min [facility] Free T4 (Free Thyroxine)on Free T4 [Mass/Vol] 1.09 ng/dL Normal 0.61-1.12 [facility] Comment on above: Order Comment: Reaso n for Exam Hypothyroidism, unspecified;Hypertension;Atrial fibrillation Reason for Exam Hypothyroidism, unspecified Performed By: #### C BC, BMP #### [facility] [address] Globulin Calc (S) [Mass/Vol] Ordered By: Feliciano Ga on 12-17-2021 Globulin (S) [Mass/Vol] 2.2 g/dL [facility] No Panel InformationOrdered By: Feliciano Ga on 12-17-2021 Estimated GFR () > 60 mL/Min [facility] Comment on above: GFR estimated refere nce range: According to KDOQI guidelines, <60 ml/min/1.73m2 is sufficient to diagnose a patient with chronic kidney disease. Pharmacy Creatinine Clearance (Chem N/A [facility] Protein [Mass/volume] in Ser um or PlasmaOrdered By: Feliciano Ga on 12-17-2021 Protein [Mass/Vol] 5.7 g/dL 6.1-7.9 [facility] Serum or plasma alanine alvarez otransferase measurement without P-5'-P (enzymatic activiOrdered By: Feliciano Ga on 12-17-2021 ALT No additional P-5'-P [Catalytic activity/Vol] 19 U/L 10-60 [facility] Serum or plasma albumin/glob ulin mass ratioOrdered By: Feliciano Ga on 12-17-2021 Albumin/Globulin [Mass ratio] 1.6 {ratio} [facility] Serum or plasma alkaline harish sphatase measurement (enzymatic activity/volume)Ordered By: Feliciano Ga on 12-17-2021 ALP [Catalytic activity/Vol] 92 U/L 32-92 [facility] Serum or plasma anion gap de terminationOrdered By: Feliciano Ga on 12-17-2021 Anion gap [Moles/Vol] 15.3 mmol/L 6.0-15.0 [facility] Serum or plasma aspartate am inotransferase measurement (enzymatic activity/volume)Ordered By: Feliciano Ga on 12-17-2021 AST [Catalytic activity/Vol] 27 U/L 10-42 [facility] Serum or plasma calcium alistair urement (mass/volume)Ordered By: Feliciano Ga on 12-17-2021 Calcium [Mass/Vol] 9.6 mg/dL 8.2-10.2 [facility] Serum or plasma chloride jaymie surement (moles/volume)Ordered By: Feliciano Ga on 12-17-2021 Chloride [Moles/Vol] 103 mmol/L 95-114 [facility] Serum or plasma glucose alistair urement (mass/volume)Ordered By: Feliciano Ga on 12-17-2021 Glucose [Mass/Vol] 84 mg/dL 70-100 [facility] Comment on above: ADA recommended refe rence rangeRandom Glucose Reference Range is dependent on time and content of last meal. Glucose of more than 200 mg/dL in a nonstressed, ambulatory subject supports the diagnosis of Diabetes Mellitus. Serum or plasma potassium me asurement (moles/volume)Ordered By: Feliciano Ga on 12-17-2021 Potassium [Moles/Vol] 4.5 mmol/L 3.5-5.1 [facility] Serum or plasma sodium measu rement (moles/volume)Ordered By: Feliciano Ga on 12-17-2021 Sodium [Moles/Vol] 139 mmol/L 136-146 [facility] Serum or plasma total biliru bin measurement (mass/volume)Ordered By: Feliciano Ga on 12-17-2021 Bilirubin [Mass/Vol] 1.2 mg/dL 0.3-1.2 [facility] Serum or plasma total carbon dioxide measurement (moles/volume)Ordered By: Feliciano Ga on 12-17-2021 CO2 [Moles/Vol] 25.2 mmol/L 22.0-30.0 [facility] Serum or plasma urea nitroge n measurement (mass/volume)Ordered By: Feliciano Ga on 12-17-2021 Urea nitrogen [Mass/Vol] 16 mg/dL 11-27 [facility] TSH DL <= 0.005 mIU/L QnOrde red By: Feliciano Ga on 12-17-2021 TSH Qn 1.83 m[IU]/L 0.45-5.33 [facility] Thyroid Stimulating Hormoneo n 12-17-2021 TSH Qn 1.83 m[IU]/L Normal 0.45-5.33 [facility] Comment on above: Order Comment: Reaso n for Exam Hypothyroidism, unspecified;Hypertension;Atrial fibrillation Reason for Exam Hypothyroidism, unspecified Result Comment: PERF ORMED BY: [place] [address] PATHOLOGIST [employer] DEVELOPER JAYY SANTA M.D. Performed By: #### C BC, BMP #### [address] Thyroxine (T4) free [Mass/vo lume] in Serum or PlasmaOrdered By: Feliciano Ga on 12-17-2021 Free T4 [Mass/Vol] 1.09 ng/dL 0.61-1.12 [facility] Office Visit (Cardiology)on 08-04-2021 Follow-up visit Diagnoses/Problems [...] Former smoker Tobacco Use Screening; Status:Complete; Done: [id number] Patient Instructions By signing my name below, I, Norah Leyva LPN, Scribe, attest that this documentation has been prepared under the direction and in the presence of Dr. Irineo Mcintyre DO. All medical record entries made by the Michael were at my direction and personally dictated [...] of Cardiac catheterization History of Complete colonoscopy [facility] History of Hip replacement History of Knee [...] 11/17/2020 2:54:19 PM Penicillins Allergy; Recorded By: Eliana Dang; 11/17/2020 2:54:19 PM Ambien Allergy; Recorded [...] for com (more content not included)... Normal [employer] Tobacco Screening.on 022 Adult depression screening assessment No [facility] [email or web address] DO Work Phone: Fall risk assessment b) One or more fall s in the last year [facility] [employer] 250 DO Work Phone: Tobacco use status CP b) No [facility] [employer]Mar[employer] lauro 250 DO Work Phone: Tobacco Screening.on 021 Fall risk assessment b) One or more fall s in the last year [facility] Harpreet restrepo 250 DO Work Phone: Tobacco use status CP b) No [facility]ayshawn barreray 250 DO Work Phone: Coding Summary.on 12-16-2016 Coding Summary. CODING DATE: 017 FINAL [facility] STATUS: Home (Routine DC) PAYOR: Medicare [...] neoplasm of other organs and systems Z79.01 jail (current) use of anticoagulants Z96.649 Presence of [...] Bynum Date Saved: 12/16/2016 09:56 am Normal [facility] Inpatient Patient Summaryon 12-15-2016 Inpatient Patient Summary [address] [address] Clinical SummaryPerson Information Name: IRINEO WALLIS Age: 76 Years : 1940 12:00 AM Sex: Male PCP: NONE, XXXX Marital Status: Race:White Ethnicity:Non- or Language:Romansh Visit Id: Visit Reason:BPH WITH OBSTRUCTION Speciality: Acuity: Enc Type: Outpatient Med Service: Surgery Arrival:12/15/2016 8:36 AM Discharge: Dispo Type: Address: [place] [id number] Provider Notes: Diagnosis: Problems No Problems Documented [...] Information: EU - Urolift Discharge Instructions (CUSTOM) [facility] Main OR Intraoperative Recor don 12-15-2016 Main OR Intraoperative Record IntraOp Document Type FTURO Summary Primary Physician: Dontrell Good MD Finalized Date/Time: 12/15/16 09:47:51 Pt. Name: IRINEO WALLIS/Sex: 1940 Male Med Rec #: [id number] Physician: Dontrell Good MD Financial #: [id number] Pt. Type: O Room/Bed: / Admit/Disch: 12/15/16 08:36:09 - Institution: Case Times FTURO Entry 1 Patient Times In Room 12/15/16 09:25:00 Out Room 12/15/16 09:51:00 Procedure Times Start 12/15/16 09:34:00 Stop 12/15/16 09:46:00 Anesthesia Times Last Modified By: LEONARD Jewell RN, Ruthann 12/15/16 09:46:12 Case Attendance FTURO Entry 1 Entry 2 Entry 3 Case Attendee Fanta FLORES, BARRYOR, Ailin BENJAMIN, Sylwia Good MD, Dontrell Schaefer Role Performed Key Account Executive - Primary Scrub - Primary Surgeon - Primary Time In 12/15/16 09:25:00 12/15/16 09:25:00 12/15/16 09:25:00 Time Out 12/15/16 09:51:00 12/15/16 09:51:00 12/15/16 09:51:00 Procedure CYSTOSCOPY LOCAL CYSTOSCOPY LOCAL CYSTOSCOPY LOCAL UROLIFT(.) UROLIFT(.) UROLIFT(.) Comments Last Modified By: LEONARD Jewell RN, LEONARD Jewell RN, LEONARD Jewell RN, Ruthann 12/15/16 Olive 12/15/16 Olive 12/15/16 09:46:13 09:46:13 09:46:13 General Comments: d serero global sales director in room for procedure Surgical Procedures FTURO [...] Modified By: LEONARD Jewell RN, Ruthann 12/15/16 07:45:32 Post-Care Text: The patient is [...] RN, Verified (If Medication Participants Ailin Schaefer [facility], [place] Applicable) Florentino Byrd MD, Dontrell [...] Identification Description urolift urolift urolift Serial Number [id number] Lot Number [id number] Transitional Living Specialist neotract neotract neotract Catalog ?# Size Expiration [...] LEONARD Jewell RN, Ruthann 12/15/16 09:47 Normal [facility] Main OR Preoperative Recordo n 12-15-2016 Main OR Preoperative Record Holding Area Document Type FTURO Summary Primary Physician: Dontrell Good MD Finalized Date/Time: 12/15/16 09:34:53 Pt. Name: IRINEO WALLIS /Sex: 1940 Male Med Rec #: [id number] Physician: Dontrell Good MD Financial #: [id number] Pt. Type: O Room/Bed: / Admit/Disch: 12/15/16 [...] Complaints of Pain: No Skin Integrity Intact, [place], Warm, & Dry Vitals - EU Blood Pressure 107/68 Pulse 78 bpm Respirations 16 br/min SPO2 Additional None RN Reviewed Yes Specimens Collected Last Modified By: LEONARD Jewell RN, Ruthann 12/15/16 09:30:48 Finalized By: LEONARD Jewell RN, Ruthann Document Signatures Signed By: LEONARD Jewell RN, Ruthann 12/15/16 09:30 Ingris Goel 12/15/16 09:09 LEONARD Jewell RN, Ruthann 12/15/16 09:34 Normal [facility] Operative Reporton 7 Operative Report Patient: LEAH WALLIS Age: 76 [...] procedure (10 mg diazepam, 5/325 mg of [place]), Local Anesthesia (60cc 2% Xylocaine liquid inserted [...] procedure well and was subsequently discharged home. [facility] Comment on above: Result Comment: Elec tronically Signed By: Florentino TIDWELL, Dontrell Steward.elizabeth\Date and Time Signed: 12/15/16 09:49 EDT Vital Signs Date Time Vital Sign Value Performing Clinician Facility 03-18-2023 09:15-0500 Body height 167.64 cm Feliciano Spencercatie Other [facility] Other 03-18-2023 09:15-0500 Body mass index (BMI) [Ratio] 29.7 kg/m2 Feliciano Spencercatie Other [facility] Other 03-18-2023 09:15-0500 Body weight 83.46 kg Feliciano Spencercatie Other [facility] Other 03-18-2023 09:15-0500 Diastolic blood pressure 80 mm[Hg] Felicianoamadou Ga Other [facility] Other 03-18-2023 09:15-0500 Respiratory rate 16 /min Feliciano Harmeet Other [facility] Other 03-18-2023 09:15-0500 SaO2% (BldA) [Mass fraction] 97 % Feliciano Spencercatie Other [facility] Other 03-18-2023 09:15-0500 Systolic blood pressure 124 mm[Hg] Feliciano Ga Other [facility] Other 09-15-2022 09:15-0400 Body height 167.64 cm Feliciano Ga Other [facility] Other 09-15-2022 09:15-0400 Body mass index (BMI) [Ratio] 28.11 kg/m2 Feliciano Ga Other [facility] Other 09-15-2022 09:15-0400 Body weight 79.02 kg Feliciano Ga Other [facility] Other 09-15-2022 09:15-0400 Diastolic blood pressure 70 mm[Hg] Feliciano Ga Other [facility] Other 09-15-2022 09:15-0400 Respiratory rate 16 /min Feliciano Ga Other [facility] Other 09-15-2022 09:15-0400 SaO2% (BldA) [Mass fraction] 96 % Feliciano Ga Other [facility] Other 09-15-2022 09:15-0400 Systolic blood pressure 112 mm[Hg] Feliciano Ga Other [facility] Other 07-07-2022 09:36-0400 Body height 167.64 cm Feliciano Ga Work Phone: [employer] 250 DO Work Phone: 07-07-2022 09:36-0400 Body mass index (BMI) [Ratio] 28.89 kg/m2 Feliciano Ga Work Phone: [facility] [employer] 250 DO Work Phone: 07-07-2022 09:36-0400 Body surface area Derived from formula 1.91 m2 Feliciano Ga Work Phone: [facility] [employer] 250 DO Work Phone: 07-07-2022 09:36-0400 Body weight 81.19 kg Feliciano Ga Work Phone: [facility] [employer] 250 DO Work Phone: 07-07-2022 09:36-0400 Diastolic blood pressure 84 mm[Hg] Feliciano Ga Work Phone: [facility] [employer] 250 DO Work Phone: 07-07-2022 09:36-0400 Heart rate 76 /min Feliciano Ga Work Phone: [facility] [employer] 250 DO Work Phone: 07-07-2022 09:36-0400 Systolic blood pressure 128 mm[Hg] Feliciano Ga Work Phone: [facility] [employer] 250 DO Work Phone: 06-07-2022 10:15-0400 Body height 167.64 cm Feliciano Ga Other [facility] Other 06-07-2022 10:15-0400 Body mass index (BMI) [Ratio] 29.7 kg/m2 Feliciano Ga Other [facility] Other 06-07-2022 10:15-0400 Body weight 83.46 kg Feliciano Ga Other [facility] Other 06-07-2022 10:15-0400 Diastolic blood pressure 60 mm[Hg] Feliciano Ga Other [employer] Other 06-07-2022 10:15-0400 Respiratory rate 16 /min Feliciano Ga Other [facility] Other 06-07-2022 10:15-0400 SaO2% (BldA) [Mass fraction] 96 % Feliciano Tjcatie Other [facility] [employer] Other 06-07-2022 10:15-0400 Systolic blood pressure 120 mm[Hg] Feliciano Ga Other [facility] [employer] Other 03-10-2022 14:47-0500 Body height 167.64 cm Feliciano Myers Harmeet Work Phone: [facility] 250 DO Work Phone: 03-10-2022 14:47-0500 Body mass index (BMI) [Ratio] 30.18 kg/m2 Feliciano Spencercatie Work Phone: [facility] [employer] 250 DO Work Phone: 03-10-2022 14:47-0500 Body surface area Derived from formula 1.94 m2 Feliciano Myers Harmeet Work Phone: [facility] [employer] 250 DO Work Phone: 03-10-2022 14:47-0500 Body weight 84.82 kg Feliciano Myers Harmeet Work Phone: [facility] [employer] 250 DO Work Phone: 03-10-2022 14:47-0500 Diastolic blood pressure 90 mm[Hg] Feliciano Myers Harmeet Work Phone: [facility] 250 DO Work Phone: 03-10-2022 14:47-0500 Heart rate 72 /min Feliciano Spencercatie Work Phone: [facility] 250 DO Work Phone: 03-10-2022 14:47-0500 Systolic blood pressure 128 mm[Hg] Feliciano Ga Work Phone: [facility] 250 DO Work Phone: 03-09-2022 13:30-0500 Body height 142.24 cm Feliciano Ga Other [facility] Other 03-09-2022 13:30-0500 Body mass index (BMI) [Ratio] 42.82 kg/m2 Feliciano Ga Other [facility] Other 03-09-2022 13:30-0500 Body weight 86.64 kg Feliciano Ga Other [facility] Other 03-09-2022 13:30-0500 Diastolic blood pressure 78 mm[Hg] Feliciano Ga Other [facility] Other 03-09-2022 13:30-0500 Respiratory rate 16 /min Feliciano Ga Other [facility] Other 03-09-2022 13:30-0500 SaO2% (BldA) [Mass fraction] 96 % Feliciano Ga Other [facility] Other 03-09-2022 13:30-0500 Systolic blood pressure 136 mm[Hg] Feliciano Ga Other [facility] Other 02-09-2022 15:45-0500 Body height 142.24 cm Feliciano Ga Other [facility] Other 02-09-2022 15:45-0500 Body mass index (BMI) [Ratio] 44.92 kg/m2 Feliciano Ga Other [facility] Other 02-09-2022 15:45-0500 Body weight 90.9 kg Feliciano Ga Other [facility] Other 02-09-2022 15:45-0500 Diastolic blood pressure 83 mm[Hg] Feliciano Spencers Other [facility] Other 02-09-2022 15:45-0500 Respiratory rate 16 /min Feliciano Spencers Other [facility] Other 02-09-2022 15:45-0500 SaO2% (BldA) [Mass fraction] 98 % Feliciano Ga Other [facility] Other 02-09-2022 15:45-0500 Systolic blood pressure 124 mm[Hg] Feliciano Spencers Other [employer] Other 01-16-2022 11:37-0500 Body temperature 98.1 [degF] DO Feliciano Spencers Work Phone: [facility] 01-16-2022 11:37-0500 Diastolic blood pressure 71 mm[Hg] DO Feliciano Tjs Work Phone: [facility] 01-16-2022 11:37-0500 Heart rate 79 /min DO Feliciano Tjs Work Phone: [facility] 01-16-2022 11:37-0500 Respiratory rate 16 /min DO Feliciano Tjs Work Phone: [facility] 01-16-2022 11:37-0500 SaO2% (BldA) [Mass fraction] 97 % DO Feliciano Tjs Work Phone: [facility] 01-16-2022 11:37-0500 Systolic blood pressure 124 mm[Hg] DO Feliciano Kuns Work Phone: [facility] 01-16-2022 04:10-0500 Body weight 90.5 kg DO Feliciano Kuns Work Phone: [facility] 01-13-2022 16:00-0500 Inhaled oxygen flow rate 1 L/min DO Feliciano Spencers Work Phone: [facility] 01-11-2022 13:55-0500 Body height 167.64 cm DO Feliciano Tjs Work Phone: [facility] 01-09-2022 14:00-0400 Diastolic blood pressure 74 mm[Hg] DO Feliciano Tjs Work Phone: [facility] 01-09-2022 14:00-0400 Heart rate 67 /min DO Feliciano Tjs Work Phone: [facility] 01-09-2022 14:00-0400 Inhaled oxygen flow rate 3 L/min DO Feliciano Spencers Work Phone: [facility] 01-09-2022 14:00-0400 Respiratory rate 19 /min DO Feliciano Spencers Work Phone: [facility] 01-09-2022 14:00-0400 SaO2% (BldA) [Mass fraction] 99 % DO Feliciano Spencers Work Phone: [facility] 01-09-2022 14:00-0400 Systolic blood pressure 145 mm[Hg] DO Feliciano Spencers Work Phone: [facility] 01-09-2022 09:41-0400 Body temperature 97.2 [degF] DO Felicianoamadou Spencers Work Phone: [facility] 01-09-2022 09:38-0400 Body height 167.64 cm DO Feliciano Tjs Work Phone: [facility] 01-09-2022 09:38-0400 Body weight 96 kg DO Feliciano Tjs Work Phone: [facility] 01-07-2022 13:45-0400 Body height 142.24 cm Felicianoamadou Spencers Other [facility] Other 01-07-2022 13:45-0400 Body mass index (BMI) [Ratio] 48.42 kg/m2 Felicianoamadou Spencercatie Other [facility] Other 01-07-2022 13:45-0400 Body weight 97.98 kg Feliciano Ga Other [facility] Other 01-07-2022 13:45-0400 Diastolic blood pressure 62 mm[Hg] Feliciano Ga Other [facility] Other 01-07-2022 13:45-0400 Respiratory rate 16 /min Feliciano Ga Other [facility] Other 01-07-2022 13:45-0400 SaO2% (BldA) [Mass fraction] 94 % Feliciano Ga Other [facility] Other 01-07-2022 13:45-0400 Systolic blood pressure 122 mm[Hg] Feliciano aG Other [facility] Other 10-12-2021 09:00-0400 Body height Feliciano Ga Other [facility] Other 10-12-2021 09:00-0400 Body mass index (BMI) [Ratio] 32.83 kg/m2 Feliciano Ga Other [facility] Other 10-12-2021 09:00-0400 Body weight 92.26 kg Feliciano Ga Other [facility] Other 10-12-2021 09:00-0400 Diastolic blood pressure 54 mm[Hg] Feliciano Ga Other [facility] Other 10-12-2021 09:00-0400 Respiratory rate 16 /min Feliciano Ga Other [facility] Other 10-12-2021 09:00-0400 SaO2% (BldA) [Mass fraction] 95 % Feliciano Ga Other [facility] Other 10-12-2021 09:00-0400 Systolic blood pressure 110 mm[Hg] Feliciano Ga Other [facility] Other 09-11-2021 10:00-0400 Body height Feliciano Ga Other [facility] Other 09-11-2021 10:00-0400 Diastolic blood pressure 52 mm[Hg] Feliciano Ga Other [facility] Other 09-11-2021 10:00-0400 Respiratory rate 16 /min Feliciano Ga Other [facility] Other 09-11-2021 10:00-0400 SaO2% (BldA) [Mass fraction] 96 % Feliciano Ga Other [facility] Other 09-11-2021 10:00-0400 Systolic blood pressure 102 mm[Hg] Feliciano Ga Other [facility] Other 08-31-2021 12:00-0400 Body height Feliciano Ga Other [facility] Other 08-31-2021 12:00-0400 Diastolic blood pressure 70 mm[Hg] Feliciano Spencers Other [facility] Other 08-31-2021 12:00-0400 Systolic blood pressure 130 mm[Hg] Feliciano Ga Other [facility] [employer] Other 08-04-2021 14:17-0400 Body height 167.64 cm Feliciano Louis Ga Work Phone: [facility] 250 DO Work Phone: 08-04-2021 14:17-0400 Body mass index (BMI) [Ratio] 33.09 kg/m2 Feliciano Louis Ga Work Phone: [facility] 250 DO Work Phone: 08-04-2021 14:17-0400 Body surface area Derived from formula 2.02 m2 Feliciano Ga Work Phone: [facility] 250 DO Work Phone: 08-04-2021 14:17-0400 Body weight 92.99 kg Felicianoamadou Ga Work Phone: [facility] 250 DO Work Phone: 08-04-2021 14:17-0400 Diastolic blood pressure 56 mm[Hg] Feliciano Louis Ga Work Phone: [facility] 250 DO Work Phone: 08-04-2021 14:17-0400 Heart rate 54 /min Feliciano Louis Spencers Work Phone: [facility] 250 DO Work Phone: 08-04-2021 14:17-0400 Systolic blood pressure 108 mm[Hg] Feliciano Spencers Work Phone: [facility] 250 DO Work Phone: 01-19-2021 09:30-0500 Body height Feliciano Ga Other [facility] Other 01-19-2021 09:30-0500 Body mass index (BMI) [Ratio] 33.67 kg/m2 Feliciano Ga Other [facility] Other 01-19-2021 09:30-0500 Body weight 94.62 kg Feliciano Ga Other [facility] Other 01-19-2021 09:30-0500 Diastolic blood pressure 62 mm[Hg] Feliciano Ga Other [facility] Other 01-19-2021 09:30-0500 Respiratory rate 16 /min Feliciano Ga Other [facility] Other 01-19-2021 09:30-0500 SaO2% (BldA) [Mass fraction] 96 % Feliciano Ga Other [facility] Other 01-19-2021 09:30-0500 Systolic blood pressure 116 mm[Hg] Feliciano Ga Other [facility] Other 01-05-2021 15:22-0400 Body height 167.64 cm Feliciano Ga Work Phone: [employer] 250 DO Work Phone: 01-05-2021 15:22-0400 Body mass index (BMI) [Ratio] 33.25 kg/m2 Feliciano Ga Work Phone: [employer] 250 DO Work Phone: 01-05-2021 15:22-0400 Body surface area Derived from formula 2.03 m2 Feliciano Ga Work Phone[facility] [employer] 250 DO Work Phone: 01-05-2021 15:22-0400 Body weight 93.44 kg Feliciano Ga Work Phone: [facility] 250 DO Work Phone: 01-05-2021 15:22-0400 Diastolic blood pressure 84 mm[Hg] Feliciano Ga Work Phone: [facility] [employer] 250 DO Work Phone: 01-05-2021 15:22-0400 Heart rate 56 /min Feliciano Ga Work Phone: [facility] 250 DO Work Phone: 01-05-2021 15:22-0400 Systolic blood pressure 126 mm[Hg] Feliciano Ga Work Phone: [facility] 250 DO Work Phone: Encounters Encounter Date Encounter Type Care Provider Facility Start: 03-18-2023 End: 03-18-2023 ambulatory Feliciano Ga Other [facility] Other Start: 03-18-2023 Office outpatient visit 25 minutes Feliciano Ga [facility] Start: 01-10-2023 End: 01-11-2023 ambulatory Diana Price MD Facility:[facility] Start: 12-31-2022 End: 12-31-2022 ambulatory Feliciano Ga Other [employer] Other Start: 12-31-2022 Telephone encounter Feliciano Ga [facility] Start: 12-06-2022 End: 12-06-2022 ambulatory Feliciano Ga Other [employer] Other Start: 12-06-2022 Telephone encounter Feliciano Ga [facility] Start: 11-30-2022 End: 11-30-2022 ambulatory Feliciano Ga Other [facility] [employer] Other Start: 11-30-2022 Telephone encounter Feliciano Ga [facility] [place] Start: 10-14-2022 ambulatory DOMINIC Vela Facili ty:H1 Start: 09-15-2022 End: 09-15-2022 ambulatory Feliciano Ga Other [facility] [employer] Other Start: 09-15-2022 Office outpatient visit 15 minutes Feliciano Ga [facility] [place] Start: 09-10-2022 Chart Update Feliciano Ga Work Phone: [facility] 250 DO Work Phone: Start: 09-08-2022 Telephone encounter Feliciano Ga [facility] [place] Start: 09-08-2022 End: 09-08-2022 ambulatory Feliciano Ga Facility:[facility] Start: 09-08-2022 End: 09-08-2022 ambulatory DO Feliciano Ga Work Phone: [facility] Work Phone: Start: 09-08-2022 End: 09-08-2022 Patient encounter procedure DO Feliciano Ga Work Phone: [facility] [place] Work Phone: Start: 08-30-2022 Rx Renewal Feliciano Ga Work Phone: [facility] 250 DO Work Phone: Start: 07-08-2022 End: 07-09-2022 ambulatory YANNI CAICEDO . Facility:H1 Start: 07-07-2022 Office outpatient visit 15 minutes Feliciano Ga Work Phone: [facility] 250 DO Work Phone: Start: 07-07-[address] Feliciano Ga Facility: Start: 06-07-2022 End: 06-07-2022 ambulatory Feliciano Harmeet Other [employer] Other Start: 06-07-2022 Office outpatient visit 25 minutes Feliciano Tjcatie [facility] Start: 06-01-2022 End: 06-01-2022 ambulatory Feliciano Tjcatie Other [employer] Other Start: 06-01-2022 Telephone encounter Felicianoamadou Ga [facility] Start: 05-13-2022 End: 05-14-2022 ambulatory EDILMA MANDEL Facility:H1 Start: 05-11-2022 End: 05-11-2022 ambulatory Feliciano Ga Other [facility] [employer] Other Start: 05-11-2022 Telephone encounter Feliciano Ga [facility] Start: 04-15-2022 End: 04-16-[address] TROY BRAMBILA . Facility:H1 Start: 04-12-2022 End: 04-12-2022 ambulatory Feliciano Ga Facility:[facility] Start: 04-12-2022 End: 04-12-2022 ambulatory DO Feliciano Ga Work Phone: [facility] Work Phone: Start: 04-12-2022 End: 04-12-2022 Discharged Recurring DO Feliciano Ga Work Phone: [facility] [place] Work Phone: Start: 03-30-2022 End: 03-30-[address] TROY BRAMBILA . Facility:H1 Start: 03-29-2022 Rx Renewal Feliciano Ga Work Phone: -[facility] 250 DO Work Phone: Start: 03-19-2022 ambulatory Marv Drew Facility : Start: 03-15-2022 ambulatory Ms. Enedelia Gomez Facility: Start: 03-15-2022 Patient encounter procedure Feliciano Ga Work Phone: [facility] 250 DO Work Phone: Start: 03-15-2022 Chart Update Feliciano Ga Work Phone: [facility] 250 DO Work Phone: Start: 03-11-2022 End: 03-11-2022 ambulatory Feliciano Ga Facility:[facility] Start: 03-11-2022 Registered Recurring DO Feliciano Spencercatie Work Phone: [facility] [place] Work Phone: Start: 03-11-2022 End: 03-11-2022 ambulatory DO Feliciano Ga Work Phone: [facility] Work Phone: Start: 03-11-2022 End: 03-11-2022 Patient encounter procedure DO Feliciano Ga Work Phone: [facility] [place] Work Phone: Start: 03-10-2022 FUV, Provider: Enedelia Mix, Status: Pen, Time: 2:30 PM Feliciano Louis Ga Work Phone: [facility] 250 DO Work Phone: Start: 03-10-2022 Office outpatient visit 25 minutes Felicianoamadou Ga Work Phone: [facility] 600 DO Work Phone: Start: 03-10-2022 Patient encounter procedure Felicianoamadou Spencers Work Phone: [facility] 250 DO Work Phone: Start: 03-10-2022 ambulatory Ms. Enedelia Carlin Jaswinder Gomez Facility: Start: 03-09-2022 End: 03-09-2022 ambulatory Feliciano Ga Other [employer] Other Start: 03-09-2022 Office outpatient visit 15 minutes Feliciano Ga [facility] [place] Start: 03-04-2022 End: 03-04-2022 ambulatory Feliciano Ga Other [employer] Other Start: 03-04-2022 Telephone encounter Feliciano Ga [facility] [place] Start: 03-03-2022 Rx Renewal Feliciano Ga Work Phone: [facility] 250 DO Work Phone: Start: 03-03-2022 End: 03-03-2022 ambulatory Feliciano Ga Other [employer] Other Start: 03-03-2022 Telephone encounter Feliciano Ga [facility] [place] Start: 02-18-2022 End: 02-19-[address] TROY BRAMBILA . Facility:H1 Start: 02-15-2022 Rx Renewal Feliciano Ga Work Phone: [facility] 250 DO Work Phone: Start: 02-09-2022 End: 02-09-2022 ambulatory Feliciano Ga Other [employer] Other Start: 02-09-2022 Office outpatient visit 25 minutes Feliciano Ga [facility] [place] Start: 01-13-2022 End: 01-13-2022 ambulatory Feliciano Ga Other [employer] Other Start: 01-13-2022 Telephone encounter Feliciano Ga [facility] [place] Start: 01-12-[address] Feliciano Ga Facility:[id number] Start: 01-11-2022 ambulatory Marv Drew Facility :[id number] Start: 11-06-[address] Feliciano Ga Facility:[id number] Start: 01-09-2022 End: 01-16-2022 Evaluation and management of inpatient Feliciano Ga Facility:[facility] Start: 01-09-2022 End: 01-16-2022 Evaluation and management of inpatient DO Feliciano Ga Work Phone: [facility] [place] [facility] Start: 01-07-2022 End: 01-07-2022 ambulatory Feliciano Ga Other [employer] Other Start: 01-07-2022 Office outpatient visit 25 minutes Feliciano Ga [facility] Start: 12-25-2021 End: 12-25-2021 ambulatory Feliciano Ga Other [employer] Other Start: 12-25-2021 Telephone encounter Feliciano Ga [facility] Start: 12-17-2021 End: 12-18-[address] TROY BRAMBILA . Facility:H1 Start: 12-17-2021 End: 12-17-2021 ambulatory DO Feliciano Ga Work Phone: [facility] Work Phone: Start: 12-17-2021 End: 12-17-2021 Patient encounter procedure DO Feliciano Ga Work Phone: [facility] [place] Start: 12-01-2021 End: 12-01-[address] TROY BRAMBILA . Facility:H1 Start: 11-12-2021 End: 11-13-[address] NELSY GA Facility:H1 Start: 10-12-2021 End: 10-12-2021 ambulatory Feliciano Ga Other [employer] Other Start: 10-12-2021 Office outpatient visit 15 minutes Feliciano Ga [facility] Start: 09-28-2021 Telephone encounter Feliciano Ga [facility] [place] Start: 09-28-2021 End: 09-28-2021 ambulatory Monserrat Mcnamarais [facility] [employer] Other Start: 09-28-2021 End: 09-28-2021 Discharged Recurring DO Feliciano Ga Work Phone: [facility] [place] Start: 09-11-2021 End: 09-11-2021 ambulatory Feliciano Ga Other [facility] [employer] Other Start: 09-11-2021 Nursing evaluation o f patient and report Feliciano Ga [facility] [place] Start: 09-10-2021 Telephone encounter Feliciano Ga [facility] [place] Start: 09-10-2021 End: 09-11-[address] NELSY GA [facility] [employer] Other Start: 09-04-2021 End: 09-04-2021 ambulatory Feliciano Ga Other [facility] [employer] Other Start: 09-04-2021 Telephone encounter Feliciano Ga [facility] [place] Start: 08-31-2021 End: 08-31-2021 ambulatory Feliciano Ga Other [employer] Other Start: 08-31-2021 Office outpatient visit 25 minutes Feliciano Ga [facility] [place] Start: 08-17-2021 End: 08-18-[address] TROY BRAMBILA . Facility:H1 Start: 08-13-2021 End: 08-14-[address] TROY BRAMBILA . Facility:H1 Start: 08-04-2021 Office outpatient visit 15 minutes Feliciano Ga Work Phone: [facility]-[place] 250 DO Work Phone: Start: 08-04-[address] Feliciano Ga Facility: Start: 07-28-2021 End: 07-28-[address] TROY BRAMBILA . Facility:H1 Start: 05-25-2021 End: 05-25-2021 ambulatory Feliciano Tjcatie Other [employer] Other Start: 05-25-2021 Telephone encounter Feliciano Harmeet [facility] [place] Start: 03-23-2021 Rx Renewal Feliciano Spencercatie Work Phone: [facility] 250 DO Work Phone: Start: 03-11-2021 End: 03-11-2021 ambulatory Feliciano Spencercatie Other [employer] Other Start: 03-11-2021 Telephone encounter Feliciano Ga [facility] Start: 03-05-2021 End: 03-05-2021 ambulatory Feliciano Ga Other [employer] Other Start: 03-05-2021 Telephone encounter Feliciano Ga [facility] Start: 02-17-2021 Rx Renewal Feliciano Spencercatie Work Phone: [facility] 250 DO Work Phone: Start: 01-19-2021 End: 01-19-2021 ambulatory Felicianoamadou Ga Other [employer] Other Start: 01-19-2021 Office outpatient visit 25 minutes Feliciano Ga [facility] Start: 01-16-2021 Rx Renewal Feliciano Louis Ga Work Phone: [facility] 250 DO Work Phone: Start: 01-13-2021 Rx Renewal Feliciano Ga Work Phone: [facility] 250A [place] Work Phone: Start: 01-05-2021 Office outpatient visit 15 minutes Feliciano Ga Work Phone: [facility] 250 DO Work Phone: Start: 01-05-2021 Patient encounter procedure Feliciano Ga Work Phone: -[facility] 250 DO Work Phone: Start: 12-15-2016 End: 12-16-2016 Ambulatory Dontrell Good Facility:[facility] Procedures Date Procedure Procedure Detail Performing Clinician [...] Phone: Start: 01-09-2022 SARS Antigen (LFIA) DO Feliciano Ga Work Phone: Start: 01-09-2022 Plain chest [...] Feliciano Ga Work Phone: Comment on above: [facility]; Arthroplasty of knee Feliciano Ga Work Phone: Comment on above: 2016 and 2020; Arthroscopy of shoulder Daniella n Louis Ga Work Phone: Cardiac catheterization Edmonda n P Harmeet Work Phone: Epidural steroid injection B molly Louis Ga Work Phone: Procedure on back Feliciano P Neil ns Work Phone: Procedure on neck Feliciano P Neil ns Work Phone: Procedure on prostate Feliciano Ga Work Phone: Prosthetic arthropla sty of the hip Feliciano Ga Work Phone: Total replacement of hip Edmond Ga Work Phone: Urine culture DO Feliciano Ga Work Phone: Plan of Treatment Date Care Activity Detail Author Start: 07-13-2023 FUV, Provider: Irineo Mcintyre, Status: Pen, Time: 9:40 AM FUV, Provider: Irineo Mcintyre, Status: Pen, Time: 9:40 AM [facility] 250 DO Work Phone: Start: 07-07-2022 FUV, Provider: Irineo Mcintyre, Status: Pen, Time: 9:20 AM FUV, Provider: Irineo Mcintyre, Status: Pen, Time: 9:20 AM [facility] 250 DO Work Phone: Start: 03-15-2022 HOL MON, Provider : [address] [employer] 1,[id number], Status: Pen, Time: 10:30 AM [facility], Provider: LEVAR [address] [employer] MEM[employer] 1,[id number], Status: Pen, Time: 10:30 AM [facility] 250 DO Work Phone: Start: 03-10-2022 FUV, Provider: Enedelia Mix, Status: Pen, Time: 2:30 PM FUV, Provider: Enedelia Mix, Status: Pen, Time: 2:30 PM [facility] 250 DO Work Phone: Start: 01-16-2022 [facility] Start: 01-12-2022 Referral to infectio us diseases physician [facility] Start: 01-09-2022 Referral to neurologist [facility] Start: 01-09-2022 Referral to Relay Worker [facility] Start: 01-09-2022 Hospital admission [facility] Start: 01-09-2022 [facility] Start: 07-08-2021 FUV, Provider: Irineo Mcintyre, Status: Pen, Time: 9:50 AM [facility] 250 DO Work Phone: Start: 06-16-2021 FUV, Provider: Irineo Mcintyre, Status: Pen, Time: 9:30 AM FUV, Provider: Irineo Mcintyre, Status: Pen, Time: 9:30 AM [facility] 250 DO Work Phone: Anion gap measurement [facility] Work Phone: Bacteria identified in Urine by Culture Urine Culture [facility] Basophil count [facility] Work Phone: Basophil percent differential count [facility] Work Phone: Blood culture for bacteria, including anaerobic screen Blood Culture [facility] Calcium [Mass/volume ] in Serum or Plasma [facility] Work Phone: Carbon dioxide, tota l [Moles/volume] in Serum or Plasma [facility] Work Phone: Chloride [Moles/volu me] in Serum or Plasma [facility] Work Phone: Creatinine and Glome rular filtration rate.predicted panel - Serum, Plasma or Blood [facility] Work Phone: Eosinophil percent differential count [facility] Work Phone: Eosinophils [#/volum e] in Blood [facility] Work Phone: Erythrocyte mean corpuscular volume determination [facility] Work Phone: Erythrocytes [#/volu me] in Blood [facility] Work Phone: Glucose [Mass/volume ] in Serum or Plasma [facility] Work Phone: Hematocrit [Volume Fraction] of Blood [facility] Work Phone: Hemoglobin [Mass/vol ume] in Blood [facility] Work Phone: Hemoglobin distribut ion, width determination [facility] Work Phone: Leukocytes [#/volume ] in Blood [facility] Work Phone: Lymphocyte count [facility] Work Phone: Lymphocyte percent differential count [facility] Work Phone: Mean corpuscular hemoglobin concentration determination [facility] Work Phone: Mean corpuscular hemoglobin determination [facility] Work Phone: Measurement of renal function [facility] Work Phone: Monocyte count [facility] Work Phone: Monocyte percent differential count [facility] Work Phone: Neutrophil count [facility] Work Phone: Neutrophil percent differential count [facility] Work Phone: [facility] Work Phone: Platelet mean volume determination [facility] Work Phone: Platelets [#/volume] in Blood [facility] Work Phone: Potassium [Moles/vol ume] in Serum or Plasma [facility] Work Phone: Sodium [Moles/volume ] in Serum or Plasma [facility] Work Phone: Urea nitrogen [Mass/volume] in Serum or Plasma [facility] Work Phone: Immunizations Immunization Date Immunization Notes Care Provider [facility] 12-17-2022 influenza, high dose seasonal, preservative-free Feliciano Ga Other [employer] Other 12-24-2021 influenza, seasonal, injectable Feliciano Ga Other [employer] Other 12-24-2021 COVID-19 Moderna (BIvalent) Feliciano Ga Other [employer] Other 12-24-2021 Fluzone High-Dose Quadrivalent 0.7 ML Intramuscular Suspension Prefilled Syringe Feliciano Ga Work Phone: [facility] [employer] 250 DO Work Phone: 02-18-2021 Moderna COVID-19 Vaccine 100 MCG/0.5ML Intramuscular Suspension Feliciano Ga Work Phone: [facility] [employer] 250 DO Work Phone: 05-28-2020 Moderna COVID-19 Vaccine 100 MCG/0.5ML Intramuscular Suspension Feliciano Ga Work Phone: [facility] [employer] 250 DO Work Phone: 05-05-2020 COVID-19 Vaccine Moderna - Documentation Purposes Only Feliciano Ga Other [employer] Other 04-30-2020 Moderna COVID-19 Vaccine 100 MCG/0.5ML Intramuscular Suspension Feliciano aG [facility] Phone: [facility] Work Phone: 04-14-2020 Moderna COVID-19 Vaccine 100 MCG/0.5ML Intramuscular Suspension Feliciano Ga Work Phone: [facility] 250 DO Work Phone: 12-22-2019 Fluzone High-Dose Quadrivalent 0.7 ML Intramuscular Suspension Prefilled Syringe Feliciano Ga Work Phone: [facility] 12-06-2019 influenza, seasonal, injectable Feliciano Ga [facility] Work Phone: 11-22-2018 influenza, seasonal, injectable Feliciano Ga Other [employer] Other 11-20-2018 Seasonal trivalent influenza vaccine, adjuvanted, preservative free Feliciano Ga Work Phone: [facility] [employer] DO Work Phone: 11-05-2018 influenza virus vaccine, unspecified formulation Feliciano Ga [facility] Phone[facility] Work Phone: 12-06-2017 influenza, high dose seasonal, preservative-free Feliciano Ga Work Phone: [facility] DO Work Phone: 12-05-2017 influenza, seasonal, injectable Feliciano Ga Other [employer] Other 11-05-2017 influenza virus vaccine, unspecified formulation Feliciano Ga Work Phone: [facility] DO Work Phone: 04-07-2016 influenza virus vaccine, unspecified formulation Feliciano Ga Work Phone: -[facility] 250 DO Work Phone: 04-07-2016 pneumococcal conjuga te vaccine, 13 valent Feliciano Ga Work Phone: [facility] 250 DO Work Phone: 01-24-2012 Kenalog 40/Xylocaine Feliciano glaser Other [facility] [employer] Other Payers Date Payer Category Payer Medicare 2022 Unknown 2021 Self-pay [id number] 2016 Medicare [id number] 1959 [facility] [id number] 2..[id number]. 1959 Medicare [id number] 2.1 [id number] 1941 Unknown [id number] 2.. 840.1.536124.3.579.2. 1941 Unknown [id number] 2.. 840.1.019899.3.579.2. 1941 Unknown [id number] 2.16. 840.1.716698.3.579.2. 1941 Unknown [id number] 2.16. 840.1.539308.3.579.2. 1941 Unknown [id number] 2.16. 840.1.957904.3.579.2. 1941 Unknown [id number] 2.16. 840.1.153866.3.579.2. 1941 Unknown [id number] 2.16. 840.1.969356.3.579.2. 1941 Unknown [id number] 2.16. 840.1.142730.3.579.2.356 1941 Unknown [id number] 2.16. 840.1.644945.3.579.2.356 1941 Unknown [id number] 2.16.84 0.1.534043.3.579.2.593 1941 Unknown [id number] 2.16.84 0.1.825083.3.579.2.593 1941 Unknown [id number] 2.16.84 0.1.868509.3.579.2.593 1941 Unknown [id number] 2.16.84 0.1.367062.3.579.2.593 1941 Unknown [id number] 2.16.84 0.1.905424.3.579.2.593 1941 Unknown [id number] 2.16.84 0.1.024635.3.579.2.593 1941 Unknown [id number] 2.16.84 0.1.458774.3.579.2.593 1941 Unknown [id number] 2.16.84 0.1.454625.3.579.2.593 1941 Unknown [id number] 2.16.84 0.1.576695.3.579.2.593 1941 Unknown [id number] 2.16.84 0.1.171724.3.579.2.593 1941 Unknown [id number] 2.16.84 0.1.532520.3.579.2.593 1941 Unknown [id number] 2.16.84 0.1.093401.3.579.2.593 1941 Unknown [id number] 2.16.84 0.1.881709.3.579.2.593 1941 Unknown [id number] 2.16. 840.1.698843.3.579.2.196 Unknown [id number] 2.16.8 40.1.356962.3.579.2.531 Unknown [id number] 2.16.8 40.1.698033.3.579.2.531 Unknown [id number] 2.16.8 40.1.935839.3.579.2.531 Unknown [id number] 2.16.8 40.1.548221.3.579.2.531 Unknown [id number] 2.16.8 40.1.450676.3.579.2.531 Unknown [id number] 2.16.8 40.1.679965.3.579.2.531 Social History Date Type Detail Facility Daily alcohol use Daily alcohol use MP-No rth [facility] 250 DO Work Phone: Comment on above: 1-2 beers; Coffee 2 cups daily; Quit smoking in 1979 ; Sex Assigned At Sex Assigned At [facility] [employer] Other Start: 12-26-2019 End: 01-13-2022 Tobacco smoking status ALIS Ex-smoker (finding) [facility] Start: 1940 Sex Assigned At Male F [facility] Medical Equipment Procedure Code Equipment Code Equipment Origin al Text Equipment Identifier Dates Arthroplasty, knee, total, minimally invasive ART SURF LEFT 11MM [id number] FDA Start: 11-05-2019 Arthroplasty, knee, total, minimally invasive Orthopaedic cement, non-medicated [id number] FDA Start: 11-05-2019 Arthroplasty, knee, total, minimally invasive Uncoated knee femur prosthesis ()[id number] FDA Start: 11-05-2019 Arthroplasty, knee, total, minimally invasive Uncoated knee tibia prosthesis, metallic ()[id number] FDA Start: 11-05-2019 Arthroplasty, knee, total, minimally invasive Polyethylene patella prosthesis ()[id number] FDA Start: 11-05-2019 Arthroplasty, knee, total, minimally [...] status Patient is Pro gressing Toward Baseline [facility] Work Phone: Mental Status Date Assessment Result Facility 01-16-2022 Cognitive function Cognitive Sta tus Patient at [facility] Work Phone: Clinical Notes 05-23-2006 to 03-18-2023 Note Date & Type Note Facility 03-18-2023 Evaluation note Encounter Date Diagnosis Assessment Notes Mar, Lumbar degenerative disc disease (ICD-10 - M51.36) Patient is following with pain management at [place], had a recent branch block. He is scheduled to follow up again next week to discuss another procedure. Patient reports rarely taking the above pain medication as this does cause him constipation. Mar, Screening for prostate cancer (ICD-10 - Z12.5) Blood work ordered for next visit. Mar, Hypothyroidism, unspecified (ICD-10 - E03.9) Blood work ordered for next visit. Mar, Hyperlipidemia (ICD-10 - E78.5) Blood work ordered for next visit. Patient does follow with Dr. Mcintyre yearly. Mar, BPH (benign prostatic hyperplasia) (ICD-10 - N40.0) Patient had followed with the urologist in the past. Reports his urination getting worse recently, mostly at night. But he is also taking a diuretic. I did offer to send a referral back to Dr. Villalba he seen in the past but the patient declined the surgery options the urologist gave him the last time. Patient is to continue with the above medication. We will continue to monitor. [employer] Other 10-02-2023 Evaluation note* Encounter Date Diagnosis Assessment Notes Treatment Notes Treatment Clinical Notes Dec, Insomnia (ICD-10 - G47.00) [employer] Other 09-26-2023 Evaluation note* Encounter Date Diagnosis Assessment Notes Treatment Notes Treatment Clinical Notes Nov, Gout (ICD-10 - M10.9) [employer] Other 07-12-2023 Evaluation note* Encounter Date Diagnosis [...] the care of pain management out of [place]. States the pain is slightly improved and [...] to thin out the secretions. Rx sent [employer] Other 07-05-2023 Evaluation note* Encounter Date Diagnosis Assessment Notes Treatment Notes Treatment Clinical Notes Sep, Hyperlipidemia (ICD-10 - E78.5) Sep, Insomnia (ICD-10 - G47.00) Sep, Hypothyroidism, unspecified (ICD-10 - E03.9) [employer] Other 04-03-2023 Evaluation note* Encounter Date Diagnosis Assessment Notes Treatment Notes Treatment Clinical Notes Jun, Lumbar degenerative disc disease (ICD-10 - M51.36) I am in agreement the patient keep the above medication on hand to use sparingly for back pain and to continue following with Pain Management. The patient states he does still go to the [facility] for [facility] trips with a group but [...] Screening for prostate cancer (ICD-10 - Z12.5) [employer] Other 03-28-2023 Evaluation note* Encounter Date Diagnosis Assessment Notes Treatment Notes Treatment Clinical Notes May, Insomnia (ICD-10 - G47.00) [employer] Other 03-07-2023 Evaluation note* Encounter Date Diagnosis Assessment Notes Treatment Notes Treatment Clinical Notes May, Atrial fibrillation (ICD-10 - I48.91) Acquaintable Other 02-09-2023 NoteCONSULTATION CONSULTATION DATE: 04/15/2022 HISTORY [...] in the clinic in three months' time.[facility] [id number] Evaluation note* Encounter Date Diagnosis Assessment Notes [...] wear a hat out in the sun. Acquaintable Other 12-29-2022 Evaluation note* Encounter Date Diagnosis Assessment Notes Treatment Notes Treatment Clinical Notes Feb, Insomnia (ICD-10 - G47.00) Feb, Hypothyroidism, unspecified (ICD-10 - E03.9) Acquaintable Other 12-28-2022 Evaluation note* Encounter Date Diagnosis Assessment Notes Treatment Notes Treatment Clinical Notes Feb, Insomnia (ICD-10 - G47.00) Feb, Hypothyroidism, unspecified (ICD-10 - E03.9) Acquaintable Other 12-15-2022 NoteCONSULTATION CONSULTATION DATE: 02/18/2022 HISTORY [...] that does radiate to the lower extremities. [place] point is tender bilaterally, with positive FABERs [...] move forward with the plan of care.[facility] [id number] Evaluation note* Encounter Date Diagnosis Assessment Notes Treatment Notes Treatment Clinical Notes Feb, Lumbar degenerative disc disease (ICD-10 - M51.36) Daughter feels that patient was doing quite well while he was getting daily PT at [facility], however now that he has home [...] upon examination, continue using the above powder. Acquaintable Other 11-11-2022 Progress note Author Raji Ennis [facility] January 15, 2022 4:51pm Note Date/Time January 15, 2022 4:51pm [facility] [address] [place] [address] Hospitalist Progress Note Signed Patient: Irineo Wallis Jr MR# : [id number] : 1940 Acct:[id number] Age/Sex: 81 / M Adm Date: 2 Loc: Room: [address] [place] [id number] Type: ADM IN Attending Dr: Raji Ennis [...] mg 01/09/22 14:41 Bisacodyl 10 Mg Supp.Rect ID 01/09/23 14:40 DAILY PRN Constipation Bisacodyl 10 [...] Propionate 1 spray 01/09/22 15:17 Fluticasone Propionate [place] 120 [place]/16 Gm Bottle NARES-BOTH 01/09/23 15:16 QHS PRN [...] tomorrow. Documented By: Raji Ennis MD 01/15/22 8677 Signed By: <Electronically signed by Raji Ennis MD> 01/15/22 1655 [facility] Work Phone: [phone] 251-680611-11-2022 Progress note Author Victor Manuel Reynolds [facility] January 15, 2022 12:21pm Note Date/Time January 15, 2022 12:21pm [facility] [address] [place] [address] Infect. Disease Progress Note Signed Patient: Irineo Wallis Jr MR# : [id number] : 1940 Acct:[id number] Age/Sex: 81 / M Adm Date: 2 Loc: Room: [address] [place] [id number] Type: ADM IN Attending Dr: Raji Ennis [...] Bisacodyl (Bisacodyl 10 Mg Supp.Rect) 10 mg ID DAILY PRN PRN Reason: Constipation Stop: 01/09/23 14:40 Bisacodyl (Bisacodyl 5 Mg Tablet.Dr) 10 mg PO DAILY PRN PRN Reason: Constipation Stop: 01/09/23 14:40 Last Admin: 01/14/22 19:57 Dose: 10 mg Bumetanide (Bumetanide 1 Mg Tablet) 1 mg PO DAILY@0800 [facility] Stop: 01/14/23 15:59 Last Admin: 01/15/22 08:46 Dose: 1 mg Docusate Sodium (Docusate 100 Mg Capsule) 100 mg PO BID [facility] Stop: 01/09/23 20:59 Last Admin: 01/15/22 08:46 Dose: 100 mg Fluticasone Propionate (Fluticasone Propionate [place] 120 [place]/16 Gm Bottle) 1 spray NARES-BOTH QHS PRN PRN Reason: Nasal Congestion Stop: 01/09/23 15:16 Magnesium Sulfate (Magnesium Sulf 2gm-*Swfi*) 2 gm in 50 mls @ 25 mls/hr IV DAILY PRN PRN Reason: Magnesium Level < 1.5 Stop: 01/09/23 14:40 Levothyroxine Sodium (Levothyroxine 150 Mcg Tablet) 150 mcg PO DAILY@0630 [facility] Stop: 01/10/23 06:29 Last Admin: 01/15/22 06:38 Dose: Not Given Magnesium Hydroxide (Magnesium Hydroxide Susp 30 Ml Udc) 30 ml PO BID PRN PRN Reason: Constipation Stop: 01/09/23 14:40 Magnesium Oxide (Magnesium Oxide 400 Mg Tablet) 400 mg PO DAILY [facility] Stop: 01/10/23 08:59 Last Admin: 01/15/22 08:46 Dose: 400 mg Nitroglycerin (Nitroglycerin 0.4 Mg Tab.Subl) 0.4 mg SUBLINGUAL Q5MIN.X3 PRN PRN Reason: Chest Pain Stop: 01/09/23 14:40 Pom Eszopiclone 3 Mg (Tablet) 3 mg PO HS [facility] Stop: 01/11/23 21:59 Last Admin: 01/14/22 21:32 Dose: 3 mg Nystatin (Nystatin 100,000 Unit/Gram Powder 15 Gm Bottle) 1 applic TOPICAL TID [facility] Stop: 01/09/23 21:59 Last Admin: 01/15/22 08:46 [...] Tab.Er.Prt) 20 meq PO QPM [facility] Stop: 01/09/23 20:59 Last Admin: 01/14/22 21:32 Dose: 20 meq Sodium Chloride (Sodium Chloride 0.9 % 10 Ml Syringe) 0 ml IV-PUSH PRN PRN PRN Reason: Flush Stop: 01/09/23 09:37 Last Admin: 01/10/22 23:31 Dose: 10 ml Sodium Chloride (Sodium Chloride 0.9 % 10 Ml Syringe) 0 ml IV-PUSH QSHIFT [facility] Stop: 01/09/23 21:59 Last Admin: 01/15/22 06:38 [...] signed by MD Victor Manuel Reynolds> 01/15/221220 [facility] Work Phone: [phone] 601-763011-10-2022 Progress note Author Raji [facility] January 14, 2022 5:43pm Note Date/Time January 14, 2022 5:43pm [facility] [address] [place] [address] Hospitalist Progress Note Signed Patient: Irineo Wallis Jr MR# : [id number] : 1940 Acct:[id number] Age/Sex: 81 / M Adm Date: 2 Loc: 3T Room: [address] [place] [id number] Type: ADM IN Attending Dr: Raji Ennis [...] 09:38) Dizziness indomethacin [From Indocin] Allergy (Verified 11/05/22 09:38) Dizziness Penicillins Allergy (Verified 01/09/22 09:38) [...] mg 01/09/22 14:41 Bisacodyl 10 Mg Supp.Rect ID 01/09/23 14:40 DAILY PRN Constipation Bisacodyl 10 [...] Propionate 1 spray 01/09/22 15:17 Fluticasone Propionate [place] 120 [place]/16 Gm Bottle NARES-BOTH 01/09/23 15:16 QHS PRN [...] <Electronically signed by Raji Ennis MD> 01/14/221742 [facility] Work Phone: [phone] 443-966011-10-2022 Progress note Author Victor Manuel Reynolds [facility] January 14, 2022 9:39am Note Date/Time January 14, 2022 9:39am [facility] [address] [place] [address] Infect. Disease Progress Note Signed Patient: Irineo Wallis Jr MR# : [id number] : 1940 Acct:[id number] Age/Sex: 81 / M Adm Date: 2 Loc: Room: [address] [place] [id number] Type: ADM IN Attending Dr: Raji Ennis [...] Appearance Clear Urine pH 5.5 Ur Specific [place] 1.012 Urine Protein 30 H Urine Glucose [...] Tablet) 300 mg PO DAILY [facility] Stop: 01/10/23 08:59 Last Admin: 01/14/22 08:04 Dose: 300 mg Apixaban (Apixaban 5 Mg Tablet) 5 mg PO BID [facility] Stop: 01/09/23 20:59 Last Admin: 01/14/22 08:04 Dose: 5 mg Atorvastatin Calcium (Atorvastatin 40 Mg Tablet) 40 mg PO QHS [facility] Stop: 01/09/23 21:59 Last Admin: 01/13/22 21:26 Dose: 40 mg Bisacodyl (Bisacodyl 10 Mg Supp.Rect) 10 mg ID DAILY PRN PRN Reason: Constipation Stop: 01/09/23 14:40 Bisacodyl (Bisacodyl 5 Mg Tablet.Dr) 10 mg PO DAILY PRN PRN Reason: Constipation Stop: 01/09/23 14:40 Last Admin: 01/13/22 21:26 Dose: 10 mg Bumetanide (Bumetanide 1 Mg Tablet) 1 mg PO BID@0800,1600 [facility] Stop: 01/13/23 15:59 Docusate Sodium (Docusate 100 Mg Capsule) 100 mg PO BID [facility] Stop: 01/09/23 20:59 Last Admin: 01/14/22 08:03 Dose: 100 mg Fluticasone Propionate (Fluticasone Propionate [place] 120 [place]/16 Gm Bottle) 1 spray NARES-BOTH QHS PRN PRN Reason: Nasal Congestion Stop: 01/09/23 15:16 Magnesium Sulfate (Magnesium Sulf 2gm-*Swfi*) 2 gm in 50 mls @ 25 mls/hr IV DAILY PRN PRN Reason: Magnesium Level < 1.5 Stop: 01/09/23 14:40 Cefepime HCl (Maxipime) 2 gm in 50 mls @ 100 mls/hr IV Q12H [facility] Last Admin: 01/14/22 03:05 Dose: 100 mls/hr Vancomycin HCl 1.25 gm/ (Dextrose) 275 mls @ 183.333 mls/hr IV Q24H [facility] Stop: 01/13/23 18:59 Last Infusion: 01/13/22 21:17 Dose: Infused Levothyroxine Sodium (Levothyroxine 150 Mcg Tablet) 150 mcg PO DAILY@0630 [facility] Stop: 01/10/23 06:29 Last Admin: 01/14/22 05:54 Dose: 150 mcg Magnesium Hydroxide (Magnesium Hydroxide Susp 30 Ml Udc) 30 ml PO BID PRN PRN Reason: Constipation Stop: 01/09/23 14:40 Magnesium Oxide (Magnesium Oxide 400 Mg Tablet) 400 mg PO DAILY [facility] Stop: 01/10/23 08:59 Last Admin: 01/14/22 08:04 Dose: 400 mg Nitroglycerin (Nitroglycerin 0.4 Mg Tab.Subl) 0.4 mg SUBLINGUAL Q5MIN.X3 PRN PRN Reason: Chest Pain Stop: 01/09/23 14:40 Pom Eszopiclone 3 Mg (Tablet) 3 mg PO HS [facility] Stop: 01/11/23 21:59 Last Admin: 01/13/22 21:27 Dose: 3 mg Nystatin (Nystatin 100,000 Unit/Gram Powder 15 Gm Bottle) 1 applic TOPICAL TID [facility] Stop: 01/09/23 21:59 Last Admin: 01/14/22 08:04 [...] Tab.Er.Prt) 20 meq PO QPM [facility] Stop: 01/09/23 20:59 Last Admin: 01/13/22 21:26 Dose: 20 meq Sodium Chloride (Sodium Chloride 0.9 % 10 Ml Syringe) 0 ml IV-PUSH PRN PRN PRN Reason: Flush Stop: 01/09/23 09:37 Last Admin: 01/10/22 23:31 Dose: 10 ml Sodium Chloride (Sodium Chloride 0.9 % 10 Ml Syringe) 0 ml IV-PUSH QSHIFT [facility] Stop: 01/09/23 21:59 Last Admin: 01/14/22 05:54 [...] <Electronically signed by MD Victor Manuel Reynolds> 01/14/2239 [facility] Work Phone: [phone] Progress note Author Mani Dickens [facility] January 13, 2022 6:10pm Note Date/Time January 13, 2022 8 :13am [facility] [address] [place] [address] Neurology Progress Note Signed with Addenda Patient: Irineo Wallis Jr MR# : [id number] : 1940 Acct:[id number] Age/Sex: 81 / M Adm Date: 2 Loc: Room: [address] [place] [id number] Type: ADM IN Attending Dr: Raji Ennis [...] extremities * Unable to test finger-nose or grkz-lf-bfxh due to drowsiness REFLEX EXAM: * 1/4 [...] Therapy Recommendations: OT Recommendations OT Recommended Discharge Prison Facility Location OT Recommended Services at Physical Therapy,Occupational Therapy Discharge PT Recommendations PT Recommended Discharge Prison Facility Location PT Recommended Services at Physical [...] <Electronically signed by MEI Knight> 01/13/22 1520 [facility] Work Phone: [phone] Progress note Author Raji Ennis [facility] January 13, 2022 3:44pm Note Date/Time January 13, 2022 3 :27pm [facility] [address] [place] [address] Hospitalist Progress Note Signed Patient: Irineo Wallis Jr MR# : [id number] : 1940 Acct:[id number] Age/Sex: 81 / M Adm Date: 2 Loc: Room: [address] [place] [id number] Type: ADM IN Attending Dr: Raji Ennis [...] mg 01/09/22 14:41 Bisacodyl 10 Mg Supp.Rect ID 01/09/23 14:40 DAILY PRN Constipation Bisacodyl 10 mg 01/09/22 14:41 01/12/22 08:22 Bisacodyl 5 Mg Tablet.Dr PO 01/09/23 14:40 10 mg DAILY PRN Administration Constipation Bumetanide 1 mg 01/13/22 16:00 Bumetanide 1 Mg Tablet PO 01/13/23 15:59 BID@0800,1600 [facility] Docusate Sodium 100 mg 01/09/22 21:00 01/13/22 09:43 Docusate 100 Mg Capsule PO 01/09/23 20:59 100 mg BID [facility] Administration Fluticasone Propionate 1 spray 01/09/22 15:17 Fluticasone Propionate [place] 120 [place]/16 Gm Bottle NARES-BOTH 01/09/23 15:16 QHS PRN [...] <Electronically signed by Raji Ennis MD> 01/13/22 7024 [facility] Work Phone: [phone] Consult note Author Victor Manuel Reynolds [facility] January 13, 2022 10:45am Note Date/Time January 13, 2022 1 0:45am [facility] [address] [place] [address] Infect. Disease Consult Note Signed Patient: Irineo Wallis Jr MR# : [id number] : 1940 Acct:[id number] Age/Sex: 81 / M Adm Date: 2 Loc: Room: [address] [place] [id number] Type: ADM IN Attending Dr: Raji Ennis [...] negative unless noted below or in HPI [facility] Attestation Statement: The following information was [...] Tablet) 300 mg PO DAILY [facility] Stop: 01/10/23 08:59 Last Admin: 01/13/22 09:43 Dose: 300 mg Apixaban (Apixaban 5 Mg Tablet) 5 mg PO BID [facility] Stop: 01/09/23 20:59 Last Admin: 01/13/22 09:43 Dose: 5 mg Atorvastatin Calcium (Atorvastatin 40 Mg Tablet) 40 mg PO QHS [facility] Stop: 01/09/23 21:59 Last Admin: 01/12/22 22:51 Dose: 40 mg Bisacodyl (Bisacodyl 10 Mg Supp.Rect) 10 mg ID DAILY PRN PRN Reason: Constipation Stop: 01/09/23 14:40 Bisacodyl (Bisacodyl 5 Mg Tablet.Dr) 10 mg PO DAILY PRN PRN Reason: Constipation Stop: 01/09/23 14:40 Last Admin: 01/12/22 08:22 Dose: 10 mg Bumetanide (Bumetanide 1 Mg/4 Ml Vial) 1 mg IV-PUSH BID@0800,1600 [facility] Stop: 01/13/23 07:59 Last Admin: 01/13/22 09:43 Dose: 1 mg Docusate Sodium (Docusate 100 Mg Capsule) 100 mg PO BID [facility] Stop: 01/09/23 20:59 Last Admin: 01/13/22 09:43 Dose: 100 mg Fluticasone Propionate (Fluticasone Propionate [place] 120 [place]/16 Gm Bottle) 1 spray NARES-BOTH QHS PRN PRN Reason: Nasal Congestion Stop: 01/09/23 15:16 Magnesium Sulfate (Magnesium Sulf 2gm-*Swfi*) 2 gm in 50 mls @ 25 mls/hr IV DAILY PRN PRN Reason: Magnesium Level < 1.5 Stop: 01/09/23 14:40 Cefepime HCl (Maxipime) 2 gm in 50 mls @ 100 mls/hr IV Q12H [facility] Last Admin: 01/13/22 03:07 Dose: 100 mls/hr Levothyroxine Sodium (Levothyroxine 150 Mcg Tablet) 150 mcg PO DAILY@0630 [facility] Stop: 01/10/23 06:29 Last Admin: 01/13/22 06:26 Dose: 150 mcg Magnesium Hydroxide (Magnesium Hydroxide Susp 30 Ml Udc) 30 ml PO BID PRN PRN Reason: Constipation Stop: 01/09/23 14:40 Magnesium Oxide (Magnesium Oxide 400 Mg Tablet) 400 mg PO DAILY [facility] Stop: 01/10/23 08:59 Last Admin: 01/13/22 09:43 Dose: 400 mg Nitroglycerin (Nitroglycerin 0.4 Mg Tab.Subl) 0.4 mg SUBLINGUAL Q5MIN.X3 PRN PRN Reason: Chest Pain Stop: 01/09/23 14:40 Pom Eszopiclone 3 Mg (Tablet) 3 mg PO HS [facility] Stop: 01/11/23 21:59 Last Admin: 01/12/22 22:51 Dose: 3 mg Nystatin (Nystatin 100,000 Unit/Gram Powder 15 Gm Bottle) 1 applic TOPICAL TID [facility] Stop: 01/09/23 21:59 Last Admin: 01/13/22 09:43 [...] Syringe) 0 ml IV-PUSH QSHIFT [facility] Stop: 01/09/23 21:59 Last Admin: 01/13/22 06:26 [...] by MD Victor Manuel Reynolds> 01/13/22 1045 [facility] Work Phone: [phone] Progress note Author W Be Mcintyre [facility] January 12, 2022 6:11pm Note Date/Time January 12, 2022 6 :11pm [facility] [address] [place] [address] Cardiology Progress Note Signed Patient: Irineo Wallis Jr MR# : [id number] : 1940 Acct:[id number] Age/Sex: 81 / M Adm Date: 2 Loc: 3T Room: [address] [place] [id number] Type: ADM IN Attending Dr: Raji Ennis [...] % (Auto) 76.3 Lymph % (Auto) 12.2 [place] % (Auto) 9.1 Eos % (Auto) 1.9 Baso % (Auto) 0.5 Neut # (Auto) 7.7 Lymph # (Auto) 1.2 [place] # (Auto) 0.9 H Eos # (Auto) [...] 2.9 Globulin (PEP) 2.4 Albumin/Globulin (PEP) 1.2 Bdkaz-9-Lxjthynsh 0.4 Jxoyw-1-Lyrkxerug 0.7 Beta Globulins 0.6 L Gamma Globulins 0.8 M-Franky Not observed PEP Note IgG 816 IgA 171 IgM 105 Serum Immunofixation 01/12/22 06:42 Corrected WBC Uncorrected WBC Count RBC Hgb Hct MCV MCH MCHC RDW Plt Count MPV Neut % (Auto) Lymph % (Auto) [place] % (Auto) Eos % (Auto) Baso % (Auto) Neut # (Auto) Lymph # (Auto) [place] # (Auto) Eos # (Auto) Baso # (Auto) Nucleated RBC % (auto) PHA Creatinine Clear Sodium Potassium Chloride Carbon Dioxide Anion Gap BUN Creatinine Est GFR ( Amer) Est GFR (Non-Af Amer) Glucose Calcium C-Reactive Prot, Quant 8.4 H Serum Total Protein Albumin (Send Out) Globulin (PEP) Albumin/Globulin (PEP) Ecisz-1-Pawqxwglu Mdudn-1-Qcqbrsjcy Beta Globulins Gamma Globulins M-Franky PEP Note [...] 1650 Signed By: <Electronically signed by Bhupinder cMintyre DO> 01/12/22 1812 [facility] Work Phone: [phone] Progress note Author Raji Ennis [facility] January 12, 2022 4:38pm Note Date/Time January 12, 2022 4 :38pm [facility] [address] [place] [address] Hospitalist Progress Note Signed Patient: Irineo Wallis Jr MR# : [id number] : 1940 Acct:[id number] Age/Sex: 81 / M Adm Date: 2 Loc: Room: [address] [place] [id number] Type: ADM IN Attending Dr: Raji Ennis [...] mg 01/09/22 14:41 Bisacodyl 10 Mg Supp.Rect ID 01/09/23 14:40 DAILY PRN Constipation Bisacodyl 10 [...] Propionate 1 spray 01/09/22 15:17 Fluticasone Propionate [place] 120 [place]/16 Gm Bottle NARES-BOTH 01/09/23 15:16 QHS PRN [...] signed by Raji Ennis MD> 01/12/22 1638 [facility] Work Phone: [phone] Progress note Author Mani Dickens [facility] January 12, 2022 4:10pm Note Date/Time January 12, 2022 8 :19am [facility] [address] [place] [address] Neurology Progress Note Signed Patient: Irineo Wallis MR# : [id number] : 1940 Acct:[id number] Age/Sex: 81 / M Adm Date: 2 Loc: 3T Room: [address] [place] [address] Type: ADM IN Attending Dr: Raji Ennis [...] extremities * Unable to test finger-nose or bmoh-vp-qmxy due to drowsiness REFLEX EXAM: * 1/4 [...] Therapy Recommendations: OT Recommendations OT Recommended Discharge Prison Facility Location OT Recommended Services at Physical Therapy,Occupational Therapy Discharge PT Recommendations PT Recommended Discharge Prison Facility Location PT Recommended Services at Physical [...] the plan of care and confirmed the OPHTHALMIC TECHNICIAN note The patient is an 81-year-old [...] signed by MD Mani Dickens> 01/12/22 1610 [facility] Work Phone: [phone] Progress note Author Raji Ennis [facility] January 11, 2022 5:04pm Note Date/Time January 11, 2022 5 :04pm [facility] [address] [place] [address] Hospitalist Progress Note Signed Patient: Irineo Wallis Jr MR# : [id number] : 1940 Acct:[id number] Age/Sex: 81 / M Adm Date: 2 Loc: Room: [address] [place] [id number] Type: ADM IN Attending Dr: Raji Ennis [...] mg 01/09/22 14:41 Bisacodyl 10 Mg Supp.Rect ID 01/09/23 14:40 DAILY PRN Constipation Bisacodyl 10 [...] Propionate 1 spray 01/09/22 15:17 Fluticasone Propionate [place] 120 [place]/16 Gm Bottle NARES-BOTH 01/09/23 15:16 QHS PRN [...] Fall precautions PT/OT DVT prophylaxis Documented By: Raij Ennis MD 01/11/22 6547 Signed By: <Electronically signed by Raji Ennis MD> 01/11/22 8983 [facility] Work Phone: [phone] Progress note Author Mani Dickens [facility] January 11, 2022 5:02pm Note Date/Time January 11, 2022 8 :55am [facility] [address] [place] [address] Neurology Progress Note Signed Patient: Irineo Wallis Jr MR# : [id number] : 1940 Acct:[id number] Age/Sex: 81 / M Adm Date: 2 Loc: Room: [address] [place] [address] Type: ADM IN Attending Dr: Raji Ennis [...] knee to all modalities. CEREBELLAR EXAM: * Ecjfoc-ij-hlfb and alternating movements are intact and normal in bilateral upper extremities * Ypej-ij-nrkh and alternating movements are intact and normal [...] Therapy Recommendations: OT Recommendations OT Recommended Discharge Prison Facility Location OT Recommended Services at Physical Therapy,Occupational Therapy Discharge PT Recommendations PT Recommended Discharge Prison Facility Location PT Recommended Services at Physical [...] the plan of care and confirmed the OPHTHALMIC TECHNICIAN note The patient is an 81-year-old [...] <Electronically signed by MD Mani Dickens> 01/11/22 1702 [facility] Work Phone: [phone] Progress note Author Bhupinder Mcintyre [facility] January 11, 2022 2:09pm Note Date/Time January 11, 2022 2 :09pm [facility] [address] [place] [address] Cardiology Progress Note Signed Patient: Irineo Wallis Jr MR# : [id number] : 1940 Acct:[id number] Age/Sex: 81 / M Adm Date: 2 Loc: 3T Room: [address] [place] [address] Type: ADM IN Attending Dr: Raji Ennis [...] % (Auto) 73.8 Lymph % (Auto) 13.7 [place] % (Auto) 9.6 Eos % (Auto) 2.2 Baso % (Auto) 0.7 Neut # (Auto) 6.3 Lymph # (Auto) 1.2 [place] # (Auto) 0.8 Eos # (Auto) 0.2 [...] signed by Bhupinder Mcintyre DO> 01/11/22 1409 [facility] Work Phone: [phone] Progress note Author Dharmesh Zavala [facility] January 10, 2022 8:54pm Note Date/Time January 10, 2022 8 :54pm [facility] [address] [place], [place] [address] Hospitalist Progress Note Signed Patient: Irineo Wallis Jr MR# : [id number] : 1940 Acct:[id number] Age/Sex: 81 / M Adm Date: 2 Loc: 3T Room: [address] [place] [address] Type: ADM IN Attending Dr: Dharmesh Zavala DO Copies to: ~ Date of Service: 01/10/2022 Subjective Subjective Narrative: When I entered the room the patient tells me that he is getting a pain in the thighs on the top of his legs. He does mention that the people in [place] told me that was due to the [...] mg 01/09/22 14:41 Bisacodyl 10 Mg Supp.Rect ID 01/09/23 14:40 DAILY PRN Constipation Bisacodyl 10 [...] Propionate 1 spray 01/09/22 15:17 Fluticasone Propionate [place] 120 [place]/16 Gm Bottle NARES-BOTH 01/09/23 15:16 QHS PRN [...] mg 01/09/22 22:00 Eszopiclone PO 01/09/23 21:59 [facility] Nystatin 1 applic 01/09/22 22:00 01/10/22 14:42 [...] <Electronically signed by Dharmesh Zavala DO> 01/10/222053 [facility] Work Phone: [phone] Consult note Author Vikas Mane [facility] January 10, 2022 12:35pm Note Date/Time January 10, 2022 9 :20am [facility] [address] [place] [address] Neurology Consult Note Signed Patient: Irineo Wallis Jr MR# : [id number] : 1940 Acct:[id number] Age/Sex: 81 / M Adm Date: 2 Loc: 3T Room: [address] [place] [address] Type: ADM IN Attending Dr: Dharmesh Zavala DO Copies to: DO Feliciano Pollock,DO Dharmesh Zavala DO~ HPI Consult Date: 01/10/22 Disability Counselor: Vikas Mane DO PMFSH Vaccinated for COVID-19?: [...] Esa Cardoso M.D.01/09/2022 10:11 AM Dictation Location: [facility]03 Renal Ultrasound 01/10/22 05:00 IMPRESSION: No hydronephrosis. Impression dictated by: Esa Cardoso M.D.01/10/2022 9:07 AM Dictation Location: [place] [address] Assessment/Plan (1) Falls frequently: Assessment/Problem Details: HPI: [...] rapidly alternating movements. No limb dysmetria with sdjqxo-sztj-vbciyh testing. DATA REVIEW: MRI lumbar spine from [...] Status: Acute Documented By: Vikas Mane DO 01/10/2212 Signed By: <Electronically signed by Vikas Mane DO> 01/10/22 1232 [facility] Work Phone: [phone] Consult note Author Marv Drew [facility] January 10, 2022 11:32am Note Date/Time January 10, 2022 1 1:32am [facility] [address] [place] [address] Cardiology Consult Note Signed Patient: Irineo Wallis Jr MR# : [id number] : 1940 Acct:[id number] Age/Sex: 81 / M Adm Date: 2 Loc: 3T Room: [address] [place] [address] Type: ADM IN Attending Dr: Dharmesh Zavala [...] He has adequate social support at home. [facility]-19?: Yes Medical History (Updated [...] x10E3/uL Lymph # (Auto) 1.0 (1.00-4.8) x10E3/uL [place] # (Auto) 1.0 H (0.0-0.8) x10E3/uL Eos # (Auto) 0.0 (0.0-0.45) x10E3/uL Baso # (Auto) 0.1 (0.0-0.2) x10E3/uL Comprehensive Metabolic Panel 01/10/22 Range/Units 06:56 Sodium 134 L (136-146) mmol/L Potassium 3.8 (3.5-5.1) mmol/L Chloride 99 (95-114) mmol/L Carbon Dioxide 26.7 (22.0-30.0) mmol/L BUN 23 (9-23) mg/dL Creatinine 1.60 H (0.64-1.27) mg/dL Glucose 97 (70-100) mg/dL Calcium 8.6 (8.2-10.2) mg/dL Intake and Output 01/10/22 01/10/2201/10/22 00:59 07:59 15:59 Intake Total Output Total [...] Bradycardia, unspecified Documented By: Marv Drew MD, [facility] 2 1125 Signed By: <Electronically signed by MD DONALD Drew> 01/10/22 1132 [facility] Work Phone: [phone] History and physical note Author Dharmesh Zavala [facility] January 09, 2022 3:30pm Note Date/Time January 09, 2022 3 :30pm [facility] [facility] [address] [place] [address] Hospitalist H&P Signed Patient: Irineo Wallis Jr MR# : [id number] : 1940 Acct:[id number] Age/Sex: 81 / M Adm Date: 2 Loc: Room: [address] [place] [id number] Type: ADM IN Attending Dr: Dharmesh Zavala DO Copies to: Feliciano Ga,DO Dharmesh Zavala, ~ HPI DATE OF EXAMINATION: 01/09/22 CHIEF [...] that he had seen a urologist in [place] recently. Patient used to be on a number of prostate medications but apparently they were stopped because they are not doing what they are supposed to be doing. The patient andhis daughter have a discussion about what urology was doing for the situation without finding a specific answer. Patient also describes that he has been veryconstipated lately and takes an unspecified rgtf-gcx-gjwoplz generic stool softener. His daughter does point [...] radiofrequency ablations by pain management doctor in [place]. Review of Systems Review of Systems Review of systems: 10 systems are reviewed and are negative except as mentioned elsewhere in the documentation. [facility] Vaccinated for COVID-19?: Yes Medical History [...] % (Auto) 13.5 % (.) 01/09/22 10:36 [place] % (Auto) 14.2 % (.) 01/09/22 10:36 Eos % (Auto) 0.1 % (.) 01/09/22 10:36 Baso % (Auto) 1.0 % (.) 01/09/22 10:36 Neut # (Auto) 4.3 x10E3/uL (1.8-7.7) 01/09/22 10:36 Lymph # (Auto) 0.8 x10E3/uL (1.00-4.8) L 01/09/22 10:36 [place] # (Auto) 0.9 x10E3/uL (0.0-0.8) H 01/09/22 [...] pH 5.5 (5.0-9.0) 01/09/22 12:42 Ur Specific [place] 1.018 (1.001-1.030) 01/09/22 12:42 Urine Protein Trace [...] lumbar spine. Documented By: Dharmesh Zavala DO 151 Signed By: <Electronically signed by Dharmesh Zavala DO> 01/09/22 1530 [facility] Work Phone: 1(220) 929-867311-03-2022 Evaluation note* Encounter Date Diagnosis Assessment Notes [...] in a week to re-evaluate the area. [facility] Other 10-21-2022 Evaluation note* Encounter Date Diagnosis Assessment Notes Treatment Notes Treatment Clinical Notes Dec, Lower extremity edema (ICD-10 - R60.0) [facility] Other 10-13-2022 NoteCONSULTATION CONSULTATION DATE: 12/17/2021 HISTORY [...] next refill, we will change it to [place] 5/325 daily p.r.n. and the patient is encouraged to increase oral fluids and to continue with his stool softener on a daily basis. Heat education was discussed with the patient, as far as frequency and consistency. We will see him in three months' time, unless otherwise indicated, and all questions answered today.[id number] NoteCONSULTATION CONSULTATION DATE: 11/12/2021 HISTORY OF PRESENT [...] followed up in the office post procedure.[facility] [id number] Evaluation note* Encounter Date Diagnosis Assessment Notes [...] manage his swelling better. He voiced understanding. [facility] Other 07-25-2022 Evaluation note* Encounter Date Diagnosis Assessment Notes Treatment Notes Treatment Clinical Notes Sep, CHF (congestive heart failure) (ICD-10 - I50.9) [facility] Other 07-08-2022 Evaluation note* Encounter Date Diagnosis Assessment Notes Treatment Notes Treatment Clinical Notes Sep, CHF (congestive heart failure) (ICD-10 - I50.9) Patient is to hold bumex until re-evaluated in one month per Dr. Feliciano aG. [facility] Other 07-07-2022 Evaluation note* Encounter Date Diagnosis Assessment Notes Treatment Notes Treatment Clinical Notes Sep, Atrial fibrillation (ICD-10 - I48.91) [facility] Other 07-01-2022 Evaluation note* Encounter Date Diagnosis Assessment Notes Treatment Notes Treatment Clinical Notes Sep, Insomnia (ICD-10 - G47.00) Sep, Gout (ICD-10 - M10.9) [facility] Other 06-27-2022 Evaluation note* Encounter Date Diagnosis [...] is in AF today. He did see recruiter specialist a few weeks ago and is stable [...] continue with current medications at this time. [facility] Other 06-09-2022 NoteCONSULTATION CONSULTATION DATE: 08/13/2021 This [...] in three months' time unless otherwise indicated. [facility] Signed and Approved by: MONSERRAT RODARTE . 08/20/2021 16:02:00[facility]03-21-2022 Evaluation note* Encounter Date Diagnosis Assessment Notes Treatment Notes Treatment Clinical Notes May, Insomnia (ICD-10 - G47.00) [facility] Other 01-05-2022 Evaluation note* Encounter Date Diagnosis Assessment Notes Treatment Notes Treatment Clinical Notes Mar, Atrial fibrillation (ICD-10 - I48.91) [facility] Other 12-30-2021 Evaluation note* Encounter Date Diagnosis Assessment Notes Treatment Notes Treatment Clinical Notes Feb, Insomnia (ICD-10 - G47.00) [facility] Other 11-15-2021 Evaluation note* Encounter Date Diagnosis [...] is to continue following with Dr. Berkowitz 15 Jan, 2021 Screening for prostate cancer (ICD-10 - Z12.5) [facility] Other 03-19-2007 History general Narrative - Reported* Type Description Date Medical History EKG 05-23-2006 Medical History MRI Lumbar Spine 01-13-11; [facility] Medical History 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 Medical History 01/22/14-stress test and echocar diogram at [facility] Medical History follows with urology Medical History 05/11/16 Stress Test Medical History f/u with Dr Mcintyre for CHF, A-F ib Medical History Dr Brambila pain mgmt- back spondyl olysis Medical History MUGA Stress test 06/14/16 [facility] Medical History 05/10/2018 Colonscop [...] History LTKA- Dr. Lezama 11/05/19 Hospitalization History [facility], A-Fib 04/2016 [facility] Other 03-19-2007 History general Narrative - Reported* Type Description Date Medical History EKG 05-23-2006 Medical History MRI Lumbar Spine 01-13-11; [facility] Medical History 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 Medical History 01/22/14-stress test and echocar diogram at [facility] Medical History follows with urology Medical History 05/11/16 Stress Test Medical History f/u with Dr Mcintyre for CHF, A-F ib Medical History Dr Brambila pain mgmt- back spondyl olysis Medical History MUGA Stress test 06/14/16 [facility] Medical History 05/10/2018 Colonscop y due to positive cologuard- polypectomy- Dr. 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 Lezama 11/05/19 Hospitalization History [facility] CHF, A-Fib 04/2016 [facility] Other Consult note Author Vikas Mane [facility] January 10, 2022 12:35pm Note Date/Time January 10, 2022 9 :20am [facility] [address] [place] [address] Neurology Consult Note Signed Patient: Irineo Wallis Jr MR# : [id number] : 1940 Acct:[id number] Age/Sex: 81 / M Adm Date: 2 Loc: Room: [address] [place] [id number] Type: ADM IN Attending Dr: Dharmesh Zavala DO Copies to: DO Feliciano Pollock DO Kristopher L Lindbloom, DO~ HPI Consult Date: 01/10/22 Disability Counselor: Vikas Mane DO PMFSH Vaccinated for COVID-19?: [...] 1 mg tablet 0.5 mg PO DAILY@0800 11/05/22 [History Confirmed 01/09/22] eszopiclone 3 mg tablet [...] Esa Cardoso M.D.01/09/2022 1:06 PM Dictation Location: [place] [address] Chest X-Ray 01/09/22 09:48 IMPRESSION: Developing groundglass parenchymal densities greater on the RIGHT. Consider pulmonary edema. Impression dictated by: Esa Cardoso M.D.01/09/2022 10:11 AM Dictation Location: [place] [address] Renal Ultrasound 01/10/22 05:00 IMPRESSION: No hydronephrosis. Impression dictated by: Esa Cardoso M.D.01/10/2022 9:07 AM Dictation Location: [place] [address] Assessment/Plan (1) Falls frequently: Assessment/Problem Details: HPI: [...] rapidly alternating movements. No limb dysmetria with vnmgxj-zmgg-ebpngu testing. DATA REVIEW: MRI lumbar spine from [...] <Electronically signed by Vikas Mane DO> 01/10/22 3928 [facility] Work Phone: Consult note Author Marv Drew [facility] January 10, 2022 11:32am Note Date/Time January 10, 2022 1 1:32am [facility] [address] [place] [address] Cardiology Consult Note Signed Patient: Irineo Wallis Jr MR# : [id number] : 1940 Acct:[id number] Age/Sex: 81 / M Adm Date: 2 Loc: Room: [address] [place] [address] Type: ADM IN Attending Dr: Dharmesh Zavala DO Copies to: DO Marv Catalan MD, [facility] Dharmesh Zavala DO~ Cardiology HPI History of [...] Cannula 1 01/10/22 08:00 01/10/22 11:01 01/10/22 11:01/10/22 11:01 01/10/22 11:01 01/10/22 11:01 01/10/22 11:01 [...] x10E3/uL Lymph # (Auto) 1.0 (1.00-4.8) x10E3/uL [place] # (Auto) 1.0 H (0.0-0.8) x10E3/uL Eos [...] Bradycardia, unspecified Documented By: Marv Drew MD, [facility] 2 1125 Signed By: <Electronically signed by MD DONALD Drew> 01/10/22 1132 [facility] Work Phone: Consult note Author Victor Manuel Reynolds [facility] January 13, 2022 10:45am Note Date/Time January 13, 2022 1 0:45am [facility] [address] [place] [address] Infect. Disease Consult Note Signed Patient: Irineo Wallis Jr MR# : [id number] : 1940 Acct:[id number] Age/Sex: 81 / M Adm Date: 2 Loc: Room: [address] [place] [address] Type: ADM IN Attending Dr: Raji Ennis [...] negative unless noted below or in HPI [facility] Attestation Statement: The following information was [...] 5 Mg Tablet) 5 mg PO BID [facility] Stop: 01/09/23 20:59 Last Admin: 01/13/22 09:43 Dose: 5 mg Atorvastatin Calcium (Atorvastatin 40 Mg Tablet) 40 mg PO QHS ANIBAL Stop: 01/09/23 21:59 Last Admin: 01/12/22 22:51 Dose: 40 mg Bisacodyl (Bisacodyl 10 Mg Supp.Rect) 10 mg ID DAILY PRN PRN Reason: Constipation Stop: 01/09/23 14:40 Bisacodyl (Bisacodyl 5 Mg Tablet.Dr) 10 mg PO DAILY PRN PRN Reason: Constipation Stop: 01/09/23 14:40 Last Admin: 01/12/22 08:22 Dose: 10 mg Bumetanide (Bumetanide 1 Mg/4 Ml Vial) 1 mg IV-PUSH BID@0800,1600 [facility] Stop: 01/13/23 07:59 Last Admin: 01/13/22 09:43 Dose: 1 mg Docusate Sodium (Docusate 100 Mg Capsule) 100 mg PO BID [facility] Stop: 01/09/23 20:59 Last Admin: 01/13/22 09:43 Dose: 100 mg Fluticasone Propionate (Fluticasone Propionate [place] 120 [place]/16 Gm Bottle) 1 spray NARES-BOTH QHS PRN PRN Reason: Nasal Congestion Stop: 01/09/23 15:16 Magnesium Sulfate (Magnesium Sulf 2gm-*Swfi*) 2 gm in 50 mls @ 25 mls/hr IV DAILY PRN PRN Reason: Magnesium Level < 1.5 Stop: 01/09/23 14:40 Cefepime HCl (Maxipime) 2 gm in 50 mls @ 100 mls/hr IV Q12H [facility] Last Admin: 01/13/22 03:07 Dose: 100 mls/hr Levothyroxine Sodium (Levothyroxine 150 Mcg Tablet) 150 mcg PO DAILY@0630 [facility] Stop: 01/10/23 06:29 Last Admin: 01/13/22 06:26 Dose: 150 mcg Magnesium Hydroxide (Magnesium Hydroxide Susp 30 Ml Udc) 30 ml PO BID PRN PRN Reason: Constipation Stop: 01/09/23 14:40 Magnesium Oxide (Magnesium Oxide 400 Mg Tablet) 400 mg PO DAILY [facility] Stop: 01/10/23 08:59 Last Admin: 01/13/22 09:43 Dose: 400 mg Nitroglycerin (Nitroglycerin 0.4 Mg Tab.Subl) 0.4 mg SUBLINGUAL Q5MIN.X3 PRN PRN Reason: Chest Pain Stop: 01/09/23 14:40 Pom Eszopiclone 3 Mg (Tablet) 3 mg PO HS [facility] Stop: 01/11/23 21:59 Last Admin: 01/12/22 22:51 Dose: 3 mg Nystatin (Nystatin 100,000 Unit/Gram Powder 15 Gm Bottle) 1 applic TOPICAL TID [facility] Stop: 01/09/23 21:59 Last Admin: 01/13/22 09:43 [...] Tab.Er.Prt) 20 meq PO QPM [facility] Stop: 01/09/23 20:59 Last Admin: 01/12/22 22:51 Dose: 20 meq Sodium Chloride (Sodium Chloride 0.9 % 10 Ml Syringe) 0 ml IV-PUSH PRN PRN PRN Reason: Flush Stop: 01/09/23 09:37 Last Admin: 01/10/22 23:31 Dose: 10 ml Sodium Chloride (Sodium Chloride 0.9 % 10 Ml Syringe) 0 ml IV-PUSH QSHIFT [facility] Stop: 01/09/23 21:59 Last Admin: 01/13/22 06:26 Dose: 10 ml Vancomycin HCl (Vancomycin - Pharmacy Dosing 1 Each Miscell) 1 each IV ONCE PRN; Protocol PRN Reason: STEFFEN.Pharmacy Consult Exam Physical Exam Vital Signs: Vital [...] by MD Victor Manuel Reynolds> 01/13/22 1045 [facility] Work Phone: Evaluation noteNo assessment information available [facility] Work Phone: Evaluation noteNo InformationNort [employer] Other Evaluation note* Diagnosis Onset Date Resolution Status Acute decompensated heart failure acute Acute exacerbation of chronic low back pain acute Elevated troponin acute Fall acute Hypoxemia acute [facility] Work Phone: Evaluation note* Diagnosis Onset Date Resolution Status Acute decompensated heart failure acute Acute exacerbation of chronic low back pain acute [id number] acute Acute respiratory failure with hypoxia acute [...] apnea acute Atrial fibrillation chronic Hypertension chronic [facility] Work Phone: History and physical note Author Dharmesh Zavala [facility] January 09, 2022 3:30pm Note Date/Time January 09, 2022 3 :30pm [facility] [address] [place] [address] Hospitalist H&P Signed Patient: Irineo Wallis Jr MR# : [id number] : 1940 Acct:[id number] Age/Sex: 81 / M Adm Date: 2 Loc: Room: [address] [place] [id number] Type: ADM IN Attending Dr: Dharmesh Zavala DO Copies to: Feliciano Ga,DO Dharmesh Zavala, ~ HPI DATE OF EXAMINATION: 01/09/22 CHIEF [...] that he had seen a urologist in [place] recently. Patient used to be on a number of prostate medications but apparently they were stopped because they are not doing what they are supposed to be doing. The patient andhis daughter have a discussion about what urology was doing for the situation without finding a specific answer. Patient also describes that he has been veryconstipated lately and takes an unspecified hwpz-rpf-jseggaa generic stool softener. His daughter does point [...] radiofrequency ablations by pain management doctor in [place]. Review of Systems Review of Systems Review of systems: 10 systems are reviewed and are negative except as mentioned elsewhere in the documentation. [facility] for [facility]-19?: Yes Medical History (Updated [...] % (Auto) 13.5 % (.) 01/09/22 10:36 [place] % (Auto) 14.2 % (.) 01/09/22 10:36 Eos % (Auto) 0.1 % (.) 01/09/22 10:36 Baso % (Auto) 1.0 % (.) 01/09/22 10:36 Neut # (Auto) 4.3 x10E3/uL (1.8-7.7) 01/09/22 10:36 Lymph # (Auto) 0.8 x10E3/uL (1.00-4.8) L 01/09/22 10:36 [place] # (Auto) 0.9 x10E3/uL (0.0-0.8) H 01/09/22 [...] pH 5.5 (5.0-9.0) 01/09/22 12:42 Ur Specific [place] 1.018 (1.001-1.030) 01/09/22 12:42 Urine Protein Trace [...] lumbar spine. Documented By: Dharmesh Zavala DO 0200 Signed By: <Electronically signed by Dharmesh Zavala DO> 01/09/22 1530 [facility] Work Phone: Hisylwz of Present illness Narrative* The patient states he has been generally stable since the last visit. Comorbid Illnesses: hypertension. * Symptoms: denies chest pain at rest, denies exertional chest pain, denies dyspnea, denies fatigue, stable exercise intolerance, denies palpitations, denies edema, denies orthopnea, denies dizziness and denies orthostatic dizziness. * Disease Monitoring: [facility] 250 DO Work Phone: History of Present illness Narrative* The patient states he has been generally stable since the last visit. Comorbid Illnesses: hypertension. * Symptoms: denies chest pain at rest, denies exertional chest pain, denies dyspnea, denies fatigue, stable exercise intolerance, denies palpitations, denies edema, denies orthopnea, denies dizziness and denies orthostatic dizziness. * [facility] Work Phone: History of Present illness Narrative* The patient presents [...] is not doing well with his goals. [facility] [employer] 250 DO Work Phone: Hismtia of Present illness Narrative* The patient presents [...] is not doing well with his goals. [facility] 600 DO Work Phone: Hospital Discharge instructions Additional Instructions Prison Facility to manage care: - Full code [...] unable to void, chou catheter removed on 01/16[facility] Work Phone: Progress note Author Dharmesh Zavala [facility] January 10, 2022 8:54pm Note Date/Time January 10, 2022 8 :54pm [facility] [address] [place] [address] Hospitalist Progress Note Signed Patient: Irineo Wallis Jr MR# : [id number] : 1940 Acct:[id number] Age/Sex: 81 / M Adm Date: 2 Loc: Room: [address] [place] [address] Type: ADM IN Attending Dr: Dharmesh Zavala DO Copies to: ~ Date of Service: 01/10/2022 Subjective Subjective Narrative: When I entered the room the patient tells me that he is getting a pain in the thighs on the top of his legs. He does mention that the people in [place] told me that was due to the [...] mg 01/09/22 14:41 Bisacodyl 10 Mg Supp.Rect ID 01/09/23 14:40 DAILY PRN Constipation Bisacodyl 10 [...] Propionate 1 spray 01/09/22 15:17 Fluticasone Propionate [place] 120 [place]/16 Gm Bottle NARES-BOTH 01/09/23 15:16 QHS PRN [...] Eszopiclone PO 01/09/23 21:59 HS [facility] Nystatin 1 applic 01/09/22 22:00 01/10/22 14:42 [...] <Electronically signed by Dharmesh Zavala DO> 01/10/222053 [facility] Work Phone: Progress note Author Mani Dickens [facility] January 11, 2022 5:02pm Note Date/Time January 11, 2022 8 :55am [facility] [address] [place] [address] Neurology Progress Note Signed Patient: Irineo Wallis Jr MR# : [id number] : 1940 Acct:[id number] Age/Sex: 81 / M Adm Date: 2 Loc: Room: [address] [place] [address] Type: ADM IN Attending Dr: Raji Ennis [...] knee to all modalities. CEREBELLAR EXAM: * Rykxvo-yx-gdzs and alternating movements are intact and normal in bilateral upper extremities * Ryqp-yf-vaya and alternating movements are intact and normal [...] Therapy Recommendations: OT Recommendations OT Recommended Discharge Prison Facility Location OT Recommended Services at Physical Therapy,Occupational Therapy Discharge PT Recommendations PT Recommended Discharge Prison Facility Location PT Recommended Services at Physical [...] head and spine were unrevealing. Dr. Sesar Clavillo did the operation. They were told that [...] the plan of care and confirmed the OPHTHALMIC TECHNICIAN note The patient is an 81-year-old [...] unspecified Status: Acute Documented By: MEI Tristan 2753 Signed By: <Electronically signed by MEI Knight> 01/11/22 0066 <Electronically signed by MD Mani Dickens> 01/11/22 8990 [facility] Work Phone: Progress note Author W Be Mcintyre [facility] January 11, 2022 2:09pm Note Date/Time January 11, 2022 2 :09pm [facility] [address] [place], [place] [id number] Cardiology Progress Note Signed Patient: Irineo Wallis Jr MR# : [id number] : 1940 Acct:[id number] Age/Sex: 81 / M Adm Date: 2 Loc: Room: [address] [place] [address] Type: ADM IN Attending Dr: Raji Ennis [...] % (Auto) 73.8 Lymph % (Auto) 13.7 [place] % (Auto) 9.6 Eos % (Auto) 2.2 Baso % (Auto) 0.7 Neut # (Auto) 6.3 Lymph # (Auto) 1.2 [place] # (Auto) 0.8 Eos # (Auto) 0.2 [...] tomorrow Documented By: Bhupinder Mcintyre DO 01/11/22 140 Signed By: <Electronically signed by Bhupinder Mcintyre DO> 01/11/22 1402 [facility] Work Phone: Progress note Author Raji [facility] January 11, 2022 5:04pm Note Date/Time January 11, 2022 5 :04pm [facility] [address] [place] [address] Hospitalist Progress Note Signed Patient: Irineo Wallis Jr MR# : [id number] : 1940 Acct:[id number] Age/Sex: 81 / M Adm Date: 2 Loc: 3T Room: [address] [place] [address] Type: ADM IN Attending Dr: Raji Ennis [...] mg 01/09/22 14:41 Bisacodyl 10 Mg Supp.Rect ID 01/09/23 14:40 DAILY PRN Constipation Bisacodyl 10 [...] Propionate 1 spray 01/09/22 15:17 Fluticasone Propionate [place] 120 [place]/16 Gm Bottle NARES-BOTH 01/09/23 15:16 QHS PRN [...] Tablet PO 01/11/23 21:59 HS [facility] Nystatin 1 applic 01/09/22 22:00 01/11/22 15:24 [...] prophylaxis Documented By: Raji Ennis MD 01/11/22 0949 Signed By: <Electronically signed by Raji Ennis MD> 01/11/22 1707 [facility] Work Phone: Progress note Author Mani Dickens [facility] January 12, 2022 4:10pm Note Date/Time January 12, 2022 8 :19am [facility] [address] [place] [address] Neurology Progress Note Signed Patient: Irineo Wallis Jr MR# : [id number] : 1940 Acct:[id number] Age/Sex: 81 / M Adm Date: 11/05/2 2 Loc: 3T Room: 7I8333-6 Type: ADM IN Attending Dr: Raji Ennis [...] extremities * Unable to test finger-nose or toty-ng-afji due to drowsiness REFLEX EXAM: * 1/4 throughout Objective Vital Signs Vital Signs: Vital Signs - 24 hr 11/07/22 08:28 01/11/22 08:28 01/11/22 11:16 Temperature 98.0 [...] Therapy Recommendations: OT Recommendations OT Recommended Discharge [facility] Facility Location OT Recommended Services at Physical Therapy,Occupational Therapy Discharge PT Recommendations PT Recommended Discharge Prison Facility Location PT Recommended Services at Physical [...] the plan of care and confirmed the OPHTHALMIC TECHNICIAN note The patient is an 81-year-old [...] signed by MD Mani Dickens> 01/12/22 1610 [facility] Work Phone: Progress note Author Raji Ennis [facility] January 12, 2022 4:38pm Note Date/Time January 12, 2022 4 :38pm [facility] [address] [place] [address] Hospitalist Progress Note Signed Patient: Irineo Wallis Jr MR# : [id number] : 1940 Acct:[id number] Age/Sex: 81 / M Adm Date: 2 Loc: Room: [address] [place] [address] Type: ADM IN Attending Dr: Raji Ennis [...] mg 01/09/22 14:41 Bisacodyl 10 Mg Supp.Rect ID 01/09/23 14:40 DAILY PRN Constipation Bisacodyl 10 [...] Propionate 1 spray 01/09/22 15:17 Fluticasone Propionate [place] 120 [place]/16 Gm Bottle NARES-BOTH 01/09/23 15:16 QHS PRN [...] signed by Raji Ennis MD> 01/12/22 1638 [facility] Work Phone: Progress note Author W Be Mcintyre [facility] January 12, 2022 6:11pm Note Date/Time January 12, 2022 6 :11pm [facility] [address] [place] [address] Cardiology Progress Note Signed Patient: Irineo Wallis Jr MR# : [id number] : 1940 Acct:[id number] Age/Sex: 81 / M Adm Date: 2 Loc: Room: [address] [place] [address] Type: ADM IN Attending Dr: Raji Ennis [...] % (Auto) 76.3 Lymph % (Auto) 12.2 [place] % (Auto) 9.1 Eos % (Auto) 1.9 Baso % (Auto) 0.5 Neut # (Auto) 7.7 Lymph # (Auto) 1.2 [place] # (Auto) 0.9 H Eos # (Auto) [...] 2.9 Globulin (PEP) 2.4 Albumin/Globulin (PEP) 1.2 Ypvhx-8-Qlmqmwuuu 0.4 Sftrd-3-Mlzfcbjti 0.7 Beta Globulins 0.6 L Gamma Globulins 0.8 M-Franky Not observed PEP Note IgG 816 IgA 171 IgM 105 Serum Immunofixation 01/12/22 06:42 Corrected WBC Uncorrected WBC Count RBC Hgb Hct MCV MCH MCHC RDW Plt Count MPV Neut % (Auto) Lymph % (Auto) [place] % (Auto) Eos % (Auto) Baso % (Auto) Neut # (Auto) Lymph # (Auto) [place] # (Auto) Eos # (Auto) Baso # (Auto) Nucleated RBC % (auto) PHA Creatinine Clear Sodium Potassium Chloride Carbon Dioxide Anion Gap BUN Creatinine Est GFR ( Amer) Est GFR (Non-Af Amer) Glucose Calcium C-Reactive Prot, Quant 8.4 H Serum Total Protein Albumin (Send Out) Globulin (PEP) Albumin/Globulin (PEP) Tavgu-6-Qydmztvpp Iqbqh-8-Ujqnmgvkm Beta Globulins Gamma Globulins M-Franky PEP Note [...] <Electronically signed by Bhupinder Mcintyre DO> 01/12/221810 [facility] Work Phone: Progress note Author Mani Dickens [facility] [facility] January 13, 2022 6:10pm Note Date/Time January 13, 2022 8 :13am [facility] [address] [place] [address] Neurology Progress Note Signed with Addenda Patient: Irineo Wallis Jr MR# : [id number] : 1940 Acct:[id number] Age/Sex: 81 / M Adm Date: 2 Loc: Room: [address] [place] [id number] Type: ADM IN Attending Dr: Raji Ennis [...] extremities * Unable to test finger-nose or [id number] due to drowsiness REFLEX EXAM: * 1/4 [...] Therapy Recommendations: OT Recommendations OT Recommended [facility]charge [facility] Location OT Recommended Services at Physical Therapy,Occupational Therapy Discharge PT Recommendations PT Recommended Discharge [facility] Facility Location PT Recommended Services at Physical [...] - Repeated falls Status: Acute Documented By: Hoa Knight, MEI [id number] Signed By: <Electronically signed by MEI العلي Antonia> 01/13/22 1520 [facility] Work Phone: Progress note Author Raji Ennis [facility] January 13, 2022 3:44pm Note Date/Time January 13, 2022 3 :27pm [facility] [address] [place] [address] Hospitalist Progress Note Signed Patient: Irineo Wallis Jr MR# : [id number] : 1940 Acct:[id number] Age/Sex: 81 / M Adm Date: 2 Loc: Room: [address] [place] [id number] Type: ADM IN Attending Dr: Raji Ennis [...] mg 01/09/22 14:41 Bisacodyl 10 Mg Supp.Rect ID 01/09/23 14:40 DAILY PRN Constipation Bisacodyl 10 mg 01/09/22 14:41 01/12/22 08:22 Bisacodyl 5 Mg Tablet. PO 01/09/23 14:40 10 mg DAILY PRN Administration Constipation Bumetanide 1 mg 01/13/22 16:00 Bumetanide 1 Mg Tablet PO 01/13/23 15:59 BID@0800,1600 ANIBAL Docusate Sodium 100 mg 01/09/22 21:00 01/13/22 09:43 Docusate 100 Mg Capsule PO 01/09/23 20:59 100 mg BID ANIBAL Administration Fluticasone Propionate 1 spray 01/09/22 15:17 Fluticasone Propionate [place] 120 [place]/16 Gm Bottle NARES-BOTH 01/09/23 15:16 QHS PRN [...] prophylaxis Documented By: Raji Ennis MD 01/13/22 4043 Signed By: <Electronically signed by Raji Ennis MD> 01/13/22 7594 [facility] Work Phone: Progress note Author Victor Manuel Reynolds [facility] January 14, 2022 9:39am Note Date/Time January 14, 2022 9:39am [facility] [address] [place], [place] [id number] Infect. Disease Progress Note Signed Patient: Irineo Wallis Jr MR# : [id number] : 1940 Acct:[id number] Age/Sex: 81 / M Adm Date: 2 Loc: Room: [address] [place] [id number] Type: ADM IN Attending Dr: Raji Ennis [...] Appearance Clear Urine pH 5.5 Ur Specific [place] 1.012 Urine Protein 30 H Urine Glucose [...] Bisacodyl (Bisacodyl 10 Mg Supp.Rect) 10 mg ID DAILY PRN PRN Reason: Constipation Stop: 01/09/23 14:40 Bisacodyl (Bisacodyl 5 Mg Tablet.Dr) 10 mg PO DAILY PRN PRN Reason: Constipation Stop: 01/09/23 14:40 Last Admin: 01/13/22 21:26 Dose: 10 mg Bumetanide (Bumetanide 1 Mg Tablet) 1 mg PO BID@0800,1600 [facility] Stop: 01/13/23 15:59 Docusate Sodium (Docusate 100 Mg Capsule) 100 mg PO BID [facility] Stop: 01/09/23 20:59 Last Admin: 01/14/22 08:03 Dose: 100 mg Fluticasone Propionate (Fluticasone Propionate [place] 120 [place]/16 Gm Bottle) 1 spray NARES-BOTH QHS PRN PRN Reason: Nasal Congestion Stop: 01/09/23 15:16 Magnesium Sulfate (Magnesium Sulf 2gm-*Swfi*) 2 gm in 50 mls @ 25 mls/hr IV DAILY PRN PRN Reason: Magnesium Level < 1.5 Stop: 01/09/23 14:40 Cefepime HCl (Maxipime) 2 gm in 50 mls @ 100 mls/hr IV Q12H [facility] Last Admin: 01/14/22 03:05 Dose: 100 mls/hr Vancomycin HCl 1.25 gm/ (Dextrose) 275 mls @ 183.333 mls/hr IV Q24H [facility] Stop: 01/13/23 18:59 Last Infusion: 01/13/22 21:17 Dose: Infused Levothyroxine Sodium (Levothyroxine 150 Mcg Tablet) 150 mcg PO DAILY@0630 [facility] Stop: 01/10/23 06:29 Last Admin: 01/14/22 05:54 Dose: 150 mcg Magnesium Hydroxide (Magnesium Hydroxide Susp 30 Ml Udc) 30 ml PO BID PRN PRN Reason: Constipation Stop: 01/09/23 14:40 Magnesium Oxide (Magnesium Oxide 400 Mg Tablet) 400 mg PO DAILY [facility] Stop: 01/10/23 08:59 Last Admin: 01/14/22 08:04 Dose: 400 mg Nitroglycerin (Nitroglycerin 0.4 Mg Tab.Subl) 0.4 mg SUBLINGUAL Q5MIN.X3 PRN PRN Reason: Chest Pain Stop: 01/09/23 14:40 Pom Eszopiclone 3 Mg (Tablet) 3 mg PO HS [facility] Stop: 01/11/23 21:59 Last Admin: 01/13/22 21:27 Dose: 3 mg Nystatin (Nystatin 100,000 Unit/Gram Powder 15 Gm Bottle) 1 applic TOPICAL TID ANIB[facility] Stop: 01/09/23 21:59 Last Admin: 01/14/22 08:04 [...] Tab.Er.Prt) 20 meq PO QPM [facility] Stop: 01/09/23 20:59 Last Admin: 01/13/22 21:26 Dose: 20 meq Sodium Chloride (Sodium Chloride 0.9 % 10 Ml Syringe) 0 ml IV-PUSH PRN PRN PRN Reason: Flush Stop: 01/09/23 09:37 Last Admin: 01/10/22 23:31 Dose: 10 ml Sodium Chloride (Sodium Chloride 0.9 % 10 Ml Syringe) 0 ml IV-PUSH QSHIFT [facility] Stop: 01/09/23 21:59 Last Admin: 01/14/22 05:54 [...] <Electronically signed by MD Victor Manuel Reynolds> 01/14/2239 [facility] Work Phone: Progress note Author Raji Ennis [facility] January 14, 2022 5:43pm Note Date/Time January 14, 2022 5:43pm [facility] [address] [place] [address] Hospitalist Progress Note Signed Patient: Irineo Wallis Jr MR# : [id number] : 1940 Acct:[id number] Age/Sex: 81 / M Adm Date: 2 Loc: Room: [address] [place] [id number] Type: ADM IN Attending Dr: Raji Ennis [...] mg 01/09/22 14:41 Bisacodyl 10 Mg Supp.Rect ID 01/09/23 14:40 DAILY PRN Constipation Bisacodyl 10 [...] Propionate 1 spray 01/09/22 15:17 Fluticasone Propionate [place] 120 [place]/16 Gm Bottle NARES-BOTH 01/09/23 15:16 QHS PRN Nasal Congestion Magnesium Sulfate 2 gm in 50 mls @ 25 mls/hr 01/09/22 14:41 Magnesium Sulf 2gm-*Swfi* IV 01/09/23 14:40 DAILY PRN Magnesium Level < 1.5 Cefepime HCl 2 gm in 50 mls @ 100 mls/hr 01/12/22 15:06 01/14/22 15:13 Maxipime IV 01/14/22 23:59 100 mls/hr Q12H [facility] Administration Vancomycin HCl 1.25 gm/ 275 mls @ 183.333 mls/hr 01/13/22 19:00 01/13/22 21:17 Dextrose IV 01/14/22 23:59 Infused Q24H [facility] Infusion Levothyroxine Sodium 150 mcg 01/10/22 06:30 [...] <Electronically signed by Raji Ennis MD> 01/14/221742 [facility] Work Phone: Progress note Author Victor Manuel Reynolds [facility] January 15, 2022 12:21pm Note Date/Time January 15, 2022 12:21pm [facility] [address] [place] [address] Infect. Disease Progress Note Signed Patient: Irineo Wallis Jr MR# : [id number] : 1940 Acct:[id number] Age/Sex: 81 / M Adm Date: 2 Loc: Room: [address] [place] [id number] Type: ADM IN Attending Dr: Raji Ennis [...] Tablet) 300 mg PO DAILY [facility] Stop: 01/10/23 08:59 Last Admin: 01/15/22 08:46 Dose: 300 mg Apixaban (Apixaban 5 Mg Tablet) 5 mg PO BID [facility] Stop: 01/09/23 20:59 Last Admin: 01/15/22 08:46 Dose: 5 mg Atorvastatin Calcium (Atorvastatin 40 Mg Tablet) 40 mg PO QHS [facility] Stop: 01/09/23 21:59 Last Admin: 01/14/22 21:32 Dose: 40 mg Bisacodyl (Bisacodyl 10 Mg Supp.Rect) 10 mg ID DAILY PRN PRN Reason: Constipation Stop: 01/09/23 14:40 Bisacodyl (Bisacodyl 5 Mg Tablet.Dr) 10 mg PO DAILY PRN PRN Reason: Constipation Stop: 01/09/23 14:40 Last Admin: 01/14/22 19:57 Dose: 10 mg Bumetanide (Bumetanide 1 Mg Tablet) 1 mg PO DAILY@0800 [facility] Stop: 01/14/23 15:59 Last Admin: 01/15/22 08:46 Dose: 1 mg Docusate Sodium (Docusate 100 Mg Capsule) 100 mg PO BID [facility] Stop: 01/09/23 20:59 Last Admin: 01/15/22 08:46 Dose: 100 mg Fluticasone Propionate (Fluticasone Propionate [place] 120 [place]/16 Gm Bottle) 1 spray NARES-BOTH QHS PRN PRN Reason: Nasal Congestion Stop: 01/09/23 15:16 Magnesium Sulfate (Magnesium Sulf 2gm-*Swfi*) 2 gm in 50 mls @ 25 mls/hr IV DAILY PRN PRN Reason: Magnesium Level < 1.5 Stop: 01/09/23 14:40 Levothyroxine Sodium (Levothyroxine 150 Mcg Tablet) 150 mcg PO DAILY@0630 [facility] Stop: 01/10/23 06:29 Last Admin: 01/15/22 06:38 Dose: Not Given Magnesium Hydroxide (Magnesium Hydroxide Susp 30 Ml Udc) 30 ml PO BID PRN PRN Reason: Constipation Stop: 01/09/23 14:40 Magnesium Oxide (Magnesium Oxide 400 Mg Tablet) 400 mg PO DAILY [facility] Stop: 01/10/23 08:59 Last Admin: 01/15/22 08:46 Dose: 400 mg Nitroglycerin (Nitroglycerin 0.4 Mg Tab.Subl) 0.4 mg SUBLINGUAL Q5MIN.X3 PRN PRN Reason: Chest Pain Stop: 01/09/23 14:40 Pom Eszopiclone 3 Mg (Tablet) 3 mg PO HS [facility] Stop: 01/11/23 21:59 Last Admin: 01/14/22 21:32 Dose: 3 mg Nystatin (Nystatin 100,000 Unit/Gram Powder 15 Gm Bottle) 1 applic TOPICAL TID [facility] Stop: 01/09/23 21:59 Last Admin: 01/15/22 08:46 [...] Tab.Er.Prt) 20 meq PO QPM [facility] Stop: 01/09/23 20:59 Last Admin: 01/14/22 21:32 Dose: 20 meq Sodium Chloride (Sodium Chloride 0.9 % 10 Ml Syringe) 0 ml IV-PUSH PRN PRN PRN Reason: Flush Stop: 01/09/23 09:37 Last Admin: 01/10/22 23:31 Dose: 10 ml Sodium Chloride (Sodium Chloride 0.9 % 10 Ml Syringe) 0 ml IV-PUSH QSHIFT [facility] Stop: 01/09/23 21:59 Last Admin: 01/15/22 06:38 [...] signed by MD Victor Manuel Reynolds> 01/15/221220 [facility] Work Phone: Progress note Author Raji Ennis [facility] January 15, 2022 4:51pm Note Date/Time January 15, 2022 4:51pm [facility] [address] [place] [address] Hospitalist Progress Note Signed Patient: Irineo Wallis Jr MR# : [id number] : 1940 Acct:[id number] Age/Sex: 81 / M Adm Date: 2 Loc: Room: [address] [place] [id number] Type: ADM IN Attending Dr: Raji Ennis [...] mg 01/09/22 14:41 Bisacodyl 10 Mg Supp.Rect ID 01/09/23 14:40 DAILY PRN Constipation Bisacodyl 10 [...] Propionate 1 spray 01/09/22 15:17 Fluticasone Propionate [place] 120 [place]/16 Gm Bottle NARES-BOTH 01/09/23 15:16 QHS PRN [...] tomorrow. Documented By: Raji Ennis MD 01/15/22 1649 Signed By: <Electronically signed by Raji Ennis MD> 01/15/22 1651 [facility] Work Phone: Summary Purpose Family History Unknown Family Member Name Dates Details Family [...] ASCVD: Mot her(V17.49, Z82.49) Status:Active Advance Directives Advance Directive Response Recorded Date/ Time Advance [...] July 2021. 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 He denies any palpitations or fast heartbeats. [...] Acute exacerbation of chronic low back pain [id number] Acute respiratory failure with hypoxia Altered mental [...] Acute exacerbation of chronic low back pain [id number] Acute respiratory failure with hypoxia Altered mental [...] Acute exacerbation of chronic low back pain [id number] Acute respiratory failure with hypoxia Altered mental [...] and content) DATE CREATED AUTHOR 08/30/2017 [facility] DATE CREATED AUTHOR AUTHOR'S ORGANIZ ATION 07/09/2022 [facility] DATE CREATED AUTHOR AUTHOR'S ORGANIZ ATION 07/09/2022 [employer] DATE CREATED AUTHOR AUTHOR'S ORGANIZ ATION 07/16/2022 [facility] DATE CREATED AUTHOR AUTHOR'S ORGANIZ ATION 09/17/2022 [facility] DATE CREATED AUTHOR AUTHOR'S ORGANIZ ATION 01/13/2023 [facility] REASON FOR VISIT (unrecogniz ed section and content) 6 month Follow uprefillRefil lsNeeds refillREVIEW LABSRefillClinical Acute Medicineblood pressure checkClinical Acute Illnessblood pressure checkClinicalScraped Arm from FallNO SHOWback/leg pain, Hosp/rehab >month agorefillsRefillsfollow up lumbar degenerationRefillsRefills3 month Follow upRefillsreview labsRefillsRefill Lunesta- bpk to send rxClinical3 month Follow up- lumbar DDD/med check Care Teams (unrecognized sec tion and content) Team Status: Active Member Role Status Dates Feliciano Ga , DO Primary Care Provider Active Team Status: Inactive Member Role Status Dates Feliciano Ga , DO Primary Care Provider, Attending Provi percy Active Team Status: Inactive Member Role Status Dates Feliciano Ga , DO Primary Care Provider Active Monserrat Rodarte OPHTHALMIC TECHNICIAN-C Attending Provider Active Team Status: Active Member [...] Dharmesh Zavala , DO Admit Provider Active Shy Mcdonough Other Provider Active Meme De La [...] , DO Primary Care Provider Active Enedelia Gomez APRN Attending Provider Active Team Status: Active Member [...] BE BASED ON THE PRIMARY CLINICAL RECORDS. [facility] [employer] [facility]. provides no warranty or guarantee of the accuracy or completeness of information in this document.
== END 2023-03-28 08:34 | disposition home or self-care (01) ==
LOC: PM 08:33
PROVIDERS: Visit Provider Nurse Practitioner
DX: M47.816 Spondylosis without myelopathy or radiculopathy, lumbar region (principal); M48.062 Spinal stenosis, lumbar region with neurogenic claudication
CPT/HCPCS: G0463

== ENCOUNTER 2023-04-04 08:34 | Day surgery (SDC) | payer MEDICARE, BC, SELFPAY ==
--- OUTSIDE RECORDS SUMMARY | 2023-04-04 08:40 | XMS_ITS | CCD ---
Author Name Unknown Address [address] [place] [address] Organization [facility] Care Team Providers Care Enterprise Applications Manager Name Role Phone Dontrell Good W Unavailable Unavailable Rice, Dontrell W Unavailable Unavailable Rice, Dontrell W Unavailable Unavailable NONE, XXXX Unavailable Unavailable Feliciano Ga Unavailable Unavailable Unavailable Feliciano Ga Unavailable DO Feliciano Ga Primary Care Provider TIFFANY Rodarte-Severiano Malone Attending Provider [phone] DO Feliciano aG Attending Provider DO Feliciano Ga Primary Care Provider DO Feliciano Ga Attending Provider MD Victor Manuel Paiz Emergency Provider [phone] DO Dharmesh Zavala Admit Provider [phone] DO Dharmesh Zavala Attending Provider Shy Mcdonough Other Provider Unavailable DO Meme De La Torre Other Provider MD Mani Dickens Other Provider DO Matheus Rizvi Other Provider JESSICA Knight- Hoa Other Provider DO Vikas Mane Other Provider RIKY Degroot Other Provider MD Raji Ennis Attending Provider MD Victor Manuel Reynolds Other Provider RIKY Mix Attending Provider [phone] Kuns, DO Feliciano Myers Attending Provider [phone] Kuns, DO Feliciano Primary Care Provider [phone] Kuns, DO Feliciano Myers Attending Provider [phone] Kuns, Dr. Feliciano Parker Primary Care Unavaila [...] Care Unavaila ble Drew, Marv Attending Unavailable Hamreet, Dr. Feliciano Parker Primary Care Unavaila ble [...] RODARTE ., MONSERRAT Consulting Unavailable KUNS, DR HWITTINGTON Consulting Unavailable BRAMBILA ., DR TROY Whitmore [...] Care Provider Kuns, DO Wiggins Attending Provider [phone] Kuns, Feliciano Primary Care Unavailable Kuns, [...] Unavailable Dee TIDWELL, Diana Hubbard Attending Unavailable Dee TIDWELL, Diana Hubbard Attending Unavailable Allergies Allergy Classification Reported Allergen(s) Allergy Type Date of Onset Reaction(s) Facility (20 sources) fentaNYL; Translations: [fentaNYL] Drug Allergy 11-09-19 AOF, loopy , Dizziness [facility]ository (20 sources) indomethacin; Translations: [Indocin] Drug Allergy Other [facility] (20 sources) penicillin; Translations: [penicillin] Drug Allergy anaphylaxis [facility] (1 source) Duragesic-25; Translations: [Duragesic-25] Propensity to adverse reactions (disorder) [facility] (1 source) FentaNYL Matrix; Translations: [FentaNYL Matrix] Propensity to adverse reactions (disorder) AOF [facility] (20 sources) fentaNYL; Translations: [Duragesic-75 PT72] Drug Allergy Dizziness, Nausea [facility] [employer] DO Work Phone: (20 sources) Penicillins; Translations: [Penicillins] Allergy to drug (finding) 11-09-19 20 Other, Weakness [facility] (20 sources) zolpidem; Translations: [Ambien] Drug Allergy memory loss [facility] [employer] DO Work Phone: (20 sources) Indomethacin Drug Allergy 11-09-19 Unknown, Dizziness [facility] (20 sources) Duragesic-75 Drug allergy nausea [employer] Other (8 sources) zolpidem; Translations: [zolpidem] Drug Allergy 12-25-19 20 Confusion [facility] (1 source) fentaNYL Drug Allergy [facility] Repository (2 sources) Penicillins Drug allergy (disorder) 07-26-19 [facility] Repository (1 source) zolpidem Drug Allergy [facility] Repository (1 source) Indomethacin Drug Allergy 01-10-20 [facility] Repository (1 source) Penicillins Drug allergy (disorder) 01-10-20 [facility] Repository Medications Current Medications Medication Drug [...] Start: 01-14-2016 take 0.5 tablet by m outh once daily as needed Bumex 1 MG [...] 30-40mmhg size xs. 5 gvaris, [id number], [place] [id number] Sep, Active Start: 09-28-[address] ockings 30-40 mmhg as directed knee high as directed 2 pair Sep, Active docusate sodium 100 mg oral capsule (20 sources) Start: 11-06-2019 End: 01-04-2020 take 1 capsule by mouth twice daily Docusate Sodium (Dok) 100 mg Capsule Active 100 MG PO Twice daily January 04, 2020 12:00am take 1 capsule by mo [facility] every twenty-four hours Colace 100 MG 1 capsule as needed Orally Once a day Active eszopiclone 3 mg oral tablet (20 sources) Start: 12-08-2022 take 1 tablet by ck th every twenty-four hours Eszopiclone 3 MG 1 tablet immediately before bedtime Orally Once a day Dec, Active Start: 11-16-2021 take 1 tablet by ck th every twenty-four hours Eszopiclone 3 MG 1 tablet immediately before bedtime Orally Once a day May, Active Start: 11-25-2020 take 1 tablet by ck th every twenty-four hours Eszopiclone 3 MG 1 [...] (13 sources) Polyene Antifungal Start: 02-09-2022 Nystatin [id number] UNIT/GM 1 application Externally Twice a day [...] Start: 11-02-2016 take 1 tablet by ck once daily K-Dur 20 mEq 1 tablet [...] by mouth every six hours Hydrocodone-Acetami nophen ([place]) 5-325 mg tablet Discontinued 1 TAB PO Q6H November 06, 2019 November 06, 2019 9:42am Start: 11-06-2019 End: 11-06-2019 take 1 tablet by mouth every six hours Hydrocodone-Acetaminophen ([place]) 5-325 mg tablet Discontinued 1 TAB PO Q6H November 06, 2019 November 06, 2019 8:42am Start: 11-06-2019 End: 11-06-2019 take 1 tablet by mouth every six hours Hydrocodone-Acetaminophen ([place]) 5-325 mg tablet Discontinued 1 TAB PO Q6H November 06, 2019 November 06, 2019 8:42am Start: 11-06-2019 End: 11-06-2019 take 1 tablet by mouth every six hours Hydrocodone-Acetaminophen ([place]) 5-325 mg tablet Discontinued 1 TAB PO Q6H November 06, 2019 November 06, 2019 8:42am Start: 11-06-2019 End: 11-06-2019 take 1 tablet by mouth every six hours Hydrocodone-Acetaminophen ([place]) 5-325 mg tablet Discontinued 1 TAB PO Q6H November 06, 2019 November 06, 2019 8:42am Start: 11-06-2019 End: 11-06-2019 take 1 tablet by mouth every six hours Hydrocodone-Acetaminophen ([place]) 5-325 mg tablet Discontinued 1 TAB PO Q6H November 06, 2019 November 06, 2019 9:42am Start: 11-06-2019 End: 11-06-2019 take 1 tablet by mouth every six hours Hydrocodone-Acetaminophen ([place]) 5-325 mg tablet Discontinued 1 TAB PO [...] [Coronary atherosclerosis of unspecified type of vessel, [place] or graft] Chronic Disorders of lipid metabolism [...] 01-09-2022 Unclassified (1 source) Other specified dorsopathies, ufqgnfgy-fwrlyvb-luri l region; Translations: [Other specified dorsopathies, mkxnliet-jwwqyej-umwn l region] Onset: 09-28-2021 Urinary tract infections [...] 09-08-2022 ALT [Catalytic activity/Vol] 31 U/L 7-52 [facility] Albumin [Mass/volume] in Ser um or Plasma by Bromocresol green (BCG) dye binding methoOrdered By: Feliciano Ga on 09-08-2022 Albumin BCG dye [Mass/Vol] 4.1 g/dL 3.5-5.7 [facility] Alkaline phosphatase [Enzyma tic activity/volume] in Serum or PlasmaOrdered By: Feliciano Ga on 09-08-2022 ALP [Catalytic activity/Vol] 124 U/L 34-104 [facility] Aspartate aminotransferase [ Enzymatic activity/volume] in Serum or PlasmaOrdered By: Feliciano Ga on 09-08-2022 AST [Catalytic activity/Vol] 47 U/L 13-39 [facility] B-Type Natriuretic Peptideon 09-08-2022 Natriuretic peptide B (Bld) [Mass/Vol] 123.0 pg/mL High 5-100 [facility] Comment on above: Result Comment: PERF ORMED BY: [place] [address] PATHOLOGIST SHEET METAL DUCT INSTALLER JAYY SANTA M.D. Performed By: #### C OVID-19 MARSMOSESEG #### [address] Basophils Auto (Bld) [#/Vol] Ordered By: Feliciano Ga on 09-08-2022 Basophils (Bld) [#/Vol] 0.0 10*3/uL 0.0-0.2 [facility] Basophils/100 WBC Auto (Bld) Ordered By: Feliciano Ga on 09-08-2022 Basophils/100 WBC (Bld) 1.0 % . [facility] Bilirubin.total [Mass/volume ] in Serum or PlasmaOrdered By: Feliciano Ga on 09-08-2022 Bilirubin [Mass/Vol] 0.7 mg/dL 0.3-1.0 [facility] Calcium [Mass/volume] in Ser um or PlasmaOrdered By: Feliciano Ga on 09-08-2022 Calcium [Mass/Vol] 9.5 mg/dL 8.6-10.3 [facility] Carbon dioxide, total [Moles /volume] in Serum or PlasmaOrdered By: Feliciano Ga on 09-08-2022 CO2 [Moles/Vol] 30.7 mmol/L 21.0-31.0 [facility] Chloride [Moles/volume] in S sandor or PlasmaOrdered By: Feliciano Ga on 09-08-2022 Chloride [Moles/Vol] 107 mmol/L 98-107 [facility] Cholesterol [Mass/volume] in Serum or PlasmaOrdered By: Feliciano Ga on 09-08-2022 Cholesterol [Mass/Vol] 124 mg/dL 140-200 [facility] Comment on above: Chol less than 200 m g/dl low riskChol 201-239 mg/dl borderline riskChol 240 mg/dl and greater high risk Cholesterol in LDL Calc [Mas s/Vol]Ordered By: Feliciano Ga on 09-08-2022 Cholesterol in LDL [Mass/Vol] 44 mg/dL 0-100 [facility] Comment on above: LDL ATP III CLASSIFI CATIONLDL less than 100 mg/dL OptimalLDL 100-129 mg/dL Near or above optimalLDL 130-159 mg/dL Borderline highLDL 160-189 mg/dL HighLDL greater than 189 mg/dL Very high Cholesterol in VLDL Calc [Ma ss/Vol]Ordered By: Feliciano Ga on 09-08-2022 Cholesterol in VLDL [Mass/Vol] 13 mg/dL [facility] Complete Blood Count Auto Di ffon 09-08-2022 Basophils (Bld) [#/Vol] 0.0 10*3/uL Normal 0.0-0.2 [facility] Comment on above: Order Comment: Reaso n for Exam Hyperlipidemia Result Comment: PERF ORMED BY: [place] [address] PATHOLOGIST SHEET METAL DU[employer] INSTALLER JAYY SANTA M.D. Performed By: #### C OVID-19 MARS, SOFIANEG #### [facility] [address] Basophils/100 WBC (Bld) 1.0 % Normal . [facility] Comment on above: Order Comment: Reaso n for Exam Hyperlipidemia Performed By: #### C OVID-19 MARS, SOFIANEG #### [facility] [address] Eosinophils (Bld) [#/Vol] 0.8 10*3/uL High 0.0-0.45 [facility] Comment on above: Order Comment: Reaso n for Exam Hyperlipidemia Performed By: #### C OVID-19 MARS, SOFIANEG #### [facility] [address] Eosinophils/100 WBC (Bld) 16.6 % Normal . [facility] Comment on above: Order Comment: Reaso n for Exam Hyperlipidemia Performed By: #### C OVID-19 MARS, SOFIANEG #### [facility] [address] Erythrocyte distribution width (RBC) [Ratio] 14.9 % High 12.0-14.8 [facility] Comment on above: Order Comment: Reaso n for Exam Hyperlipidemia Performed By: #### C OVID-19 MARS, SOFIANEG #### [address] Hematocrit (Bld) [Volume fraction] 37.1 % Low 38.8-50.0 [facility] Comment on above: Order Comment: Reaso n for Exam Hyperlipidemia Performed By: #### C OVID-19 MARS, SOFIANEG #### [address] Hemoglobin (Bld) [Mass/Vol] 12.5 g/dL Low 13.0-17.0 [facility] Comment on above: Order Comment: Reaso n for Exam Hyperlipidemia Performed By: #### C OVID-19 MARS, SOFIANEG #### [facility] [address] [place] [address] Lymphocytes (Bld) [#/Vol] 1.3 10*3/uL Normal 1.00-4.8 [facility] Comment on above: Order Comment: Reaso n for Exam Hyperlipidemia Performed By: #### C OVID-19 MARS, SOFIANEG #### [facility] [address] [place], [place] [id number] [place] Lymphocytes/100 WBC (Bld) 27.0 % Normal . [facility] Comment on above: Order Comment: Reaso n for Exam Hyperlipidemia Performed By: #### C OVID-19 MARS, SOFIANEG #### [facility] [address] [place] [address] MCH (RBC) [Entitic mass] 33.5 pg Normal 27.5-35.2 [facility] Comment on above: Order Comment: Reaso n for Exam Hyperlipidemia Performed By: #### C OVID-19 MARS, SOFIANEG #### [facility] [address] MCV (RBC) [Entitic vol] 99.7 fL Normal 83.5-101 [facility] Comment on above: Order Comment: Reaso n for Exam Hyperlipidemia Performed By: #### C OVID-19 MARS, SOFIANEG #### [facility] [address] [place] [address] Mean Corpuscular HGB Conc 33.6 g/dL Normal 32.5-35.6 [facility] Comment on above: Order Comment: Reaso n for Exam Hyperlipidemia Performed By: #### C OVID-19 MARS, SOFIANEG #### [address] Monocytes (Bld) [#/Vol] 0.3 10*3/uL Normal 0.0-0.8 [facility] Comment on above: Order Comment: Reaso n for Exam Hyperlipidemia Performed By: #### C OVID-19 MARS, SOFIANEG #### [facility] [address] [place] [address] [place] Monocytes/100 WBC (Bld) 7.2 % Normal . [facility] Comment on above: Order Comment: Reaso n for Exam Hyperlipidemia Performed By: #### C OVID-19 MARS, SOFIANEG #### [facility] [address] [place] [address] [place] Neutrophils (Bld) [#/Vol] 2.2 10*3/uL Normal 1.8-7.7 [facility] Comment on above: Order Comment: Reaso n for Exam Hyperlipidemia Performed By: #### C OVID-19 MARS, SOFIANEG #### [facility] [address] [place] [address] [place] Neutrophils/100 WBC (Bld) 48.2 % Normal . [facility] Comment on above: Order Comment: Reaso n for Exam Hyperlipidemia Performed By: #### C OVID-19 MARS, SOFIANEG #### [facility] [address] NRBC% 0.2 /100{WBC} Normal 0-0.5 [facility] Comment on above: Order Comment: Reaso n for Exam Hyperlipidemia Performed By: #### C OVID-19 MARS, SOFIANEG #### [facility] [address] Platelet mean volume (Bld) [Entitic vol] 8.8 fL Normal 6.6-10.1 [facility] Comment on above: Order Comment: Reaso n for Exam Hyperlipidemia Performed By: #### C OVID-19 MARS, SOFIANEG #### [facility] [address] Platelets (Bld) [#/Vol] 155 10*3/uL Normal 150-450 [facility] Comment on above: Order Comment: Reaso n for Exam Hyperlipidemia Performed By: #### C OVID-19 MARS, SOFIANEG #### [facility] [address] [place] [address] RBC (Bld) [#/Vol] 3.73 10*6/uL Low 3.90-5.60 [facility] Comment on above: Order Comment: Reaso n for Exam Hyperlipidemia Performed By: #### C OVID-19 MARS, SOFIANEG #### [facility] [address] [place] [address] WBC (Bld) [#/Vol] 4.7 10*3/uL Normal 4.1-10.5 [facility] Comment on above: Order Comment: Reaso n for Exam Hyperlipidemia Performed By: #### C OVID-19 MARS, SOFIANEG #### [facility] [address] Comprehensive Metabolic Pane haley 09-08-2022 Albumin [Mass/Vol] 4.1 g/dL Normal 3.5-5.7 [facility] Comment on above: Order Comment: Reaso n for Exam Hyperlipidemia Performed By: #### C OVID-19 MARS, SOFIANEG #### [facility] [address] Albumin/Globulin [Mass ratio] 1.9 {ratio} Normal [facility] Comment on above: Order Comment: Reaso n for Exam Hyperlipidemia Performed By: #### C OVID-19 MARS, SOFIANEG #### [facility] [address] [place] [id number] [facility] ALP [Catalytic activity/Vol] 124 U/L High 34-104 [facility] Comment on above: Order Comment: Reaso n for Exam Hyperlipidemia Performed By: #### C OVID-19 MARS, SOFIANEG #### [facility] [address] ALT [Catalytic activity/Vol] 31 U/L Normal 7-52 [facility] Comment on above: Order Comment: Reaso n for Exam Hyperlipidemia Performed By: #### C OVID-19 MARS, SOFIANEG #### [facility] [address] Anion gap [Moles/Vol] 8.3 mmol/L Normal 6.0-15.0 [facility] Comment on above: Order Comment: Reaso n for Exam Hyperlipidemia Performed By: #### C OVID-19 MARS, SOFIANEG #### [facility] [address] AST [Catalytic activity/Vol] 47 U/L High 13-39 [facility] Comment on above: Order Comment: Reaso n for Exam Hyperlipidemia Performed By: #### C OVID-19 MARS, SOFIANEG #### [facility] [address] [place] [id number] [place] Bilirubin [Mass/Vol] 0.7 mg/dL Normal 0.3-1.0 [facility] Comment on above: Order Comment: Reaso n for Exam Hyperlipidemia Performed By: #### C OVID-19 MARS, SOFIANEG #### [facility] [address] [place] [address] [place] Calcium [Mass/Vol] 9.5 mg/dL Normal 8.6-10.3 [facility] Comment on above: Order Comment: Reaso n for Exam Hyperlipidemia Performed By: #### C OVID-19 MARS, SOFIANEG #### [facility] [address] [place] [address] [place] Chloride [Moles/Vol] 107 mmol/L Normal 98-107 [facility] Comment on above: Order Comment: Reaso n for Exam Hyperlipidemia Performed By: #### C OVID-19 MARS, SOFIANEG #### [facility] [address] CO2 [Moles/Vol] 30.7 mmol/L Normal 21.0-31.0 [facility] Comment on above: Order Comment: Reaso n for Exam Hyperlipidemia Performed By: #### C OVID-19 MARS, SOFIANEG #### [facility] [address] Creatinine [Mass/Vol] 1.18 mg/dL Normal 0.70-1.30 [facility] Comment on above: Order Comment: Reaso n for Exam Hyperlipidemia Performed By: #### C OVID-19 MARS, SOFIANEG #### [facility] [address] [place] [address] [place] GFR/1.73 sq M.predicted MDRD (S/P/Bld) [Vol rate/Area] mL/min/{1.73_m2} [facility] Comment on above: Order Comment: Reaso n for Exam Hyperlipidemia Performed By: #### C OVID-19 MARS, SOFIANEG #### [facility] [address] [place] [id number] [place] Globulin (S) [Mass/Vol] 2.2 g/dL [facility] Comment on above: Order Comment: Reaso n for Exam Hyperlipidemia Performed By: #### C OVID-19 MARS, SOFIANEG #### [facility] [address] [place] [address] [place] Glucose [Mass/Vol] 83 mg/dL Normal 70-100 [facility] Comment on above: Order Comment: Reaso n for Exam Hyperlipidemia Result Comment: [place] Glucose Reference Range is dependent on time and content of last meal. Glucose of more than 200 mg/dL in a nonstressed, ambulatory subject supports the diagnosis of Diabetes Mellitus. ADA recommended reference range Performed By: #### C OVID-19 MARS, SOFIANEG #### [facility] [address] [place] [address] [place] Potassium [Moles/Vol] 4.0 mmol/L Normal 3.5-5.1 [facility] Comment on above: Order Comment: Reaso n for Exam Hyperlipidemia Performed By: #### C OVID-19 MARS, SOFIANEG #### [facility] [address] [place] [address] [place] Protein [Mass/Vol] 6.3 g/dL Low 6.4-8.9 [facility] Comment on above: Order Comment: Reaso n for Exam Hyperlipidemia Performed By: #### C OVID-19 MARS, SOFIANEG #### [facility] [address] Sodium [Moles/Vol] 142 mmol/L Normal 136-145 [facility] Comment on above: Order Comment: Reaso n for Exam Hyperlipidemia Performed By: #### C OVID-19 MARS, SOFIANEG #### [facility] [address] [place] [address] [place] Urea nitrogen [Mass/Vol] 22 mg/dL Normal 7-25 [facility] Comment on above: Order Comment: Reaso n for Exam Hyperlipidemia Performed By: #### C OVID-19 MARS, SOFIANEG #### [facility] [address] [place] [address] Creatinine [Mass/volume] in Serum or PlasmaOrdered By: Feliciano Ga on 09-08-2022 Creatinine [Mass/Vol] 1.18 mg/dL 0.70-1.30 [facility] Eosinophils Auto (Bld) [#/Vo l]Ordered By: Feliciano Ga on 09-08-2022 Eosinophils (Bld) [#/Vol] 0.8 10*3/uL 0.0-0.45 [facility] Eosinophils/100 WBC Auto (Bl d)Ordered By: Feliciano Ga on 09-08-2022 Eosinophils/100 WBC (Bld) 16.6 % . [facility] Erythrocyte distribution wid th Auto (RBC) [Ratio]Ordered By: Feliciano Ga on 09-08-2022 Erythrocyte distribution width (RBC) [Ratio] 14.9 % 12.0-14.8 [facility] Free T4 (Free Thyroxine)on 0 09-08-2022 Free T4 [Mass/Vol] 1.28 ng/dL High 0.61-1.12 [facility] Comment on above: Order Comment: Reaso n for Exam Weight loss Reason for Exam Hyperlipidemia Performed By: #### C OVID-19 MARS, SOFIANEG #### [facility] [address] Globulin Calc (S) [Mass/Vol] Ordered By: Feliciano Ga on 09-08-2022 Globulin (S) [Mass/Vol] 2.2 g/dL [facility] Glucose [Mass/volume] in Ser um or PlasmaOrdered By: Feliciano Ga on 09-08-2022 Glucose [Mass/Vol] 83 mg/dL 70-100 [facility] Comment on above: ADA recommended refe rence rangeRandom Glucose Reference Range is dependent on time and content of last meal. Glucose of more than 200 mg/dL in a nonstressed, ambulatory subject supports the diagnosis of Diabetes Mellitus. Hematocrit Auto (Bld) [Volum e fraction]Ordered By: Feliciano Ga on 09-08-2022 Hematocrit (Bld) [Volume fraction] 37.1 % 38.8-50.0 [facility] Hemoglobin [Mass/volume] in BloodOrdered By: Feliciano Ga on 09-08-2022 Hemoglobin (Bld) [Mass/Vol] 12.5 g/dL 13.0-17.0 [facility] Leukocytes [#/volume] correc fern for nucleated erythrocytes in Blood by Automated counOrdered By: Feliciano Ga on 09-08-2022 WBC corrected for nucl RBC Auto (Bld) [#/Vol] 4.7 10*3/uL 4.1-10.5 [facility] Lipid Panelon 09-08-2022 Cholesterol [Mass/Vol] 124 mg/dL Low 140-200 [facility] Comment on above: Order Comment: Reaso n for Exam Hyperlipidemia Result Comment: Chol less than 200 mg/dl low risk Chol 201-239 mg/dl borderline risk Chol 240 mg/dl and greater high risk Performed By: #### C OVID-19 MARS, SOFIANEG #### [facility] [address] [place] [address] [place] Cholesterol in HDL [Mass/Vol] 67 mg/dL Normal 23-92 [facility] Comment on above: Order Comment: Reaso n for Exam Hyperlipidemia Result Comment: HDL CHOL ATP-III CLASSIFICATION Cardiovascular Risk HDL > or equal to 60 mg/dL LOW HDL < 40 mg/dL HIGH Performed By: #### C OVID-19 MARS, SOFIANEG #### [facility] [address] Cholesterol.total/Chol esterol in HDL [Mass ratio] 1.9 {ratio} Normal <5.0 [facility] Comment on above: Order Comment: Reaso n for Exam Hyperlipidemia Result Comment: PERF ORMED BY: [place] [address] PATHOLOGIST SHEET METAL DU[employer] INSTALLER JAYY SANTA M.D. Performed By: #### C OVID-19 MARS, SOFIANEG #### [facility] [address] LDL Cholesterol,Calculated 44 mg/dL Normal 0-100 [facility] Comment on above: Order Comment: Reaso n for Exam Hyperlipidemia Result Comment: LDL ATP III CLASSIFICATION LDL less than 100 mg/dL Optimal LDL 100-129 mg/dL Near or above optimal LDL 130-159 mg/dL Borderline high LDL 160-189 mg/dL High LDL greater than 189 mg/dL Very high Performed By: #### C OVID-19 MARS, SOFIANEG #### [facility] [address] [place] [id number] [place] Triglyceride w/Reflex 66 mg/dL Normal 0-149 [facility] Comment on above: Order Comment: Reaso n for Exam Hyperlipidemia Result Comment: TRIG ATP III CLASSIFICATION TRIG less than 150 mg/dL Normal TRIG 150-199 mg/dL Borderline high TRIG 200-500 mg/dL High TRIG greater than 500 mg/dL Very high Standard traceable to the Center for Disease Conrtrol and Prevention (CDC) test method. Performed By: #### C OVID-19 MARS, SOFIANEG #### [facility] [address] VLDL CHOLESTEROL 13 mg/dL Normal [facility] Comment on above: Order Comment: [place] phelan for Exam Hyperlipidemia Performed By: #### C OVID-19 JOSE CREWS #### [facility] [address] Lymphocytes Auto (Bld) [#/Vo l]Ordered By: Feliciano Ga on 09-08-2022 Lymphocytes (Bld) [#/Vol] 1.3 10*3/uL 1.00-4.8 [facility] Lymphocytes/100 WBC Auto (Bl d)Ordered By: Feliciano Ga on 09-08-2022 Lymphocytes/100 WBC (Bld) 27.0 % . [facility] MCH Auto (RBC) [Entitic mass ]Ordered By: Feliciano Ga on 09-08-2022 MCH (RBC) [Entitic mass] 33.5 pg 27.5-35.2 [facility] MCHC Auto (RBC) [Mass/Vol]Or dered By: Feliciano Ga on 09-08-2022 MCHC (RBC) [Mass/Vol] 33.6 g/dL 32.5-35.6 [facility] MCV Auto (RBC) [Entitic vol] Ordered By: Feliciano Ga on 09-08-2022 MCV (RBC) [Entitic vol] 99.7 fL 83.5-101 [facility] Monocytes Auto (Bld) [#/Vol] Ordered By: Feliciano Ga on 09-08-2022 Monocytes (Bld) [#/Vol] 0.3 10*3/uL 0.0-0.8 [facility] Monocytes/100 WBC Auto (Bld) Ordered By: Feliciano Ga on 09-08-2022 Monocytes/100 WBC (Bld) 7.2 % . [facility] Natriuretic peptide B [Mass/ Vol]Ordered By: Bhupinder Mcintyre on 09-08-2022 Natriuretic peptide B (Bld) [Mass/Vol] 123.0 pg/mL 5-100 [facility] Neutrophils Auto (Bld) [#/Vo l]Ordered By: Feliciano Ga on 09-08-2022 Neutrophils (Bld) [#/Vol] 2.2 10*3/uL 1.8-7.7 [facility] Neutrophils/100 WBC Auto (Bl d)Ordered By: Feliciano Ga on 09-08-2022 Neutrophils/100 WBC (Bld) 48.2 % . [facility] No Panel Informationon 09-08 123.0\S\123.0 above high threshold 5-100 [facility] Heart-Sandu lauro 250 DO Work Phone: Comment on above: PERFORMED BY:[facility] [facility], [place] [phone] MEDICAL DIRECTORJAYY SANTA M.D. No Panel InformationOrdered By: Feliciano Ga on 09-08-2022 Estimated GFR (CKD-EPI) > 60.0 mL/Min [facility] Creatinine Clearance (Chem N/A [facility] Nucleated erythrocytes [Pres ence] in Blood by Automated countOrdered By: Feliciano Ga on 09-08-2022 Nucleated RBC Auto Ql (Bld) 0.2 /100{WBC} 0-0.5 [facility] PSA Screen (Yearly Only)on 0 09-08-2022 PSA Screen (Yearly Only) 2.140 ng/mL Normal 0.000-4.00 0 [facility] Comment on above: Order Comment: Reaso n for Exam Screening for prostate cancer Is patient <50 yrs? Medicare does not pay <50.: N What is the date of the last PSA Screen?: 673601 Is Medicare the insurance?: Y Did you verify eligibility (Dx Time) check TestViewGp: YES TO ALL Result Comment: PERF ORMED BY: [facility] [address] [facility] [place] [address] PATHOLOGIST SHEET METAL DUCT INSTALLER JAYY SANTA M.D. Performed By: #### C OVID-19 MOSES CREWSEG #### [facility] [address] [place] [address] [facility] Platelet mean volume Auto (B ld) [Entitic vol]Ordered By: Feliciano Ga on 09-08-2022 Platelet mean volume (Bld) [Entitic vol] 8.8 fL 6.6-10.1 [facility] Platelets Auto (Bld) [#/Vol] Ordered By: Feliciano Ga on 09-08-2022 Platelets (Bld) [#/Vol] 155 10*3/uL 150-450 [facility] Potassium [Moles/volume] in Serum or PlasmaOrdered By: Feliciano Ga on 09-08-2022 Potassium [Moles/Vol] 4.0 mmol/L 3.5-5.1 [facility] Prostate specific Ag [Mass/v olume] in Serum or PlasmaOrdered By: Feliciano Ga on 09-08-2022 Prostate specific Ag [Mass/Vol] 2.140 ng/mL 0.000-4.00 0 [facility] Protein [Mass/volume] in Ser um or PlasmaOrdered By: Feliciano Ga on 09-08-2022 Protein [Mass/Vol] 6.3 g/dL 6.4-8.9 [facility] RBC Auto (Bld) [#/Vol]Ordere d By: Feliciano Ga on 09-08-2022 RBC (Bld) [#/Vol] 3.73 10*6/uL 3.90-5.60 [facility] Serum or plasma albumin/glob ulin mass ratioOrdered By: Feliciano Ga on 09-08-2022 Albumin/Globulin [Mass ratio] 1.9 {ratio} [facility] Serum or plasma anion gap de terminationOrdered By: Feliciano Ga on 09-08-2022 Anion gap [Moles/Vol] 8.3 mmol/L 6.0-15.0 [facility] Serum or plasma high density lipoprotein (HDL) cholesterol measurementOrdered By: Feliciano Ga on 09-08-2022 Cholesterol in HDL [Mass/Vol] 67 mg/dL 23-92 [facility] Comment on above: HDL CHOL ATP-III CLA SSIFICATION Cardiovascular RiskHDL > or equal to 60 mg/dL LOWHDL < 40 mg/dL HIGH Serum or plasma total choles terol/high density lipoprotein (HDL) cholesterol mass ratOrdered By: Feliciano Ga on 09-08-2022 Cholesterol.total/Chol esterol in HDL [Mass ratio] 1.9 {ratio} <5.0 [facility] Sodium [Moles/volume] in Ser um or PlasmaOrdered By: Feliciano Ga on 09-08-2022 Sodium [Moles/Vol] 142 mmol/L 136-145 [facility] Thyroid Stimulating Hormoneo n 09-08-2022 TSH Qn 0.46 m[IU]/L Normal 0.45-5.33 [facility] Comment on above: Order Comment: Reaso n for Exam Weight loss Reason for Exam Hyperlipidemia Result Comment: PERF ORMED BY: [facility] [address] [place] [address] PATHOLOGIST SHEET METAL DUCT INSTALLER JAYY SANTA M.D. Performed By: #### C OVID-19 JOSE CREWS #### [address] Thyrotropin [Units/volume] i n Serum or PlasmaOrdered By: Feliciano Ga on 09-08-2022 TSH Qn 0.46 m[IU]/L 0.45-5.33 [facility] Thyroxine (T4) free [Mass/vo lume] in Serum or PlasmaOrdered By: Feliciano Ga on 09-08-2022 Free T4 [Mass/Vol] 1.28 ng/dL 0.61-1.12 [facility] Triglyceride [Mass/volume] i n Serum or PlasmaOrdered By: Feliciano Ga on 09-08-2022 Triglyceride [Mass/Vol] 66 mg/dL 0-149 [facility] Comment on above: TRIG ATP III CLASSIF ICATIONTRIG less than 150 mg/dL NormalTRIG 150-199 mg/dL Borderline highTRIG 200-500 mg/dL High TRIG greater than 500 mg/dL Very highStandard traceable to the Center for Disease Conrtrol and Prevention (CDC) test method. Urea nitrogen [Mass/volume] in Serum or PlasmaOrdered By: Feliciano Ga on 09-08-2022 Urea nitrogen [Mass/Vol] 22 mg/dL 7-25 [facility] WBC Auto (Bld) [#/Vol]Ordere d By: Feliciano Ga on 09-08-2022 WBC (Bld) [#/Vol] 4.7 10*3/uL 4.1-10.5 [facility] Office Visit (Cardiology)on 07-07-2022 Follow-up visit [...] of Cardiac catheterization History of Complete colonoscopy [facility] History of Epidural steroid injection History [...] other sy (more content not included)... Normal Potential Tobacco Screening.on 023 Tobacco use status CPHS b) No -[facility] tabulate lauro 250 DO Work Phone: US KIDNEYS [...] RONALD ISRAEL Date: 2022-05-13 09:51 Normal [facility] Cardiovasc Arrhythmia Result son 03-15-2022 Cardiovasc Arrhythmia Results Reason For Visit Reason for Visit: Holter Monitor: IRINEO is here for the application of a 24 hour Holter monitor. Ordering Physician: Enedelia Aguillon NP Diagnosis: afib NO equipment agreement signed. IRINEO understands monitor is to be returned on: 03/16/2022 Monitor number [id number] applied. Holter monitor printed and placed on [...] Date/TimeProviderSpecialty Site 07/07/2022 09:20 Irineo Link DOCardiology703 [facility] 2 Wai 250 DO Signatures Electronically signed by : Marv Drew MD; Mar 19 2022 6:25PM EST (Author) Electronically signed by : Enedelia Gomez APRN-ALEXANDRA; Mar 22 2022 9:37AM EST (Author) Normal Potential Basic Metabolic Panelon -0 Anion gap [Moles/Vol] 10.1 mmol/L Normal 6.0-15.0 [facility] Comment on above: Performed By: #### C OVID-19 MARS SOFIANEG #### [facility] [address] [place] [address] [place] Calcium [Mass/Vol] 9.9 mg/dL Normal 8.2-10.2 [facility] Comment on above: Result Comment: PERF ORMED BY: [facility] [address] [place] [address] PATHOLOGIST SHEET METAL DUCT INSTALLER JAYY SANTA M.D. Performed By: #### C OVID-19 MARS, SOFIANEG #### [facility] [address] [place] [address] [place] Chloride [Moles/Vol] 100 mmol/L Normal 95-114 [facility] Comment on above: Performed By: #### C OVID-19 MARS, SOFIANEG #### [facility] [address] [place] [id number] [place] CO2 [Moles/Vol] 30.5 mmol/L High 22.0-30.0 [facility] Comment on above: Performed By: #### C OVID-19 MARS, SOFIANEG #### [facility] [address] [place] [address] [place] Creatinine [Mass/Vol] 1.28 mg/dL High 0.64-1.27 [facility] Comment on above: Performed By: #### C OVID-19 MARS, SOFIANEG #### [facility] [address] Estimated GFR ( Amarilis > 60 [facility] Comment on above: Result Comment: GFR estimated reference range: According to KDOQI guidelines, <60 ml/min/1.73m2 is sufficient to diagnose a patient with chronic kidney disease. Performed By: #### C OVID-19 MARS, SOFIANEG #### [facility] [address] [place] [address] [place] Estimated GFR (Non- Am 54 Normal [facility] Comment on above: Performed By: #### C OVID-19 MARS, SOFIANEG #### [facility] [address] Glucose [Mass/Vol] 96 mg/dL Normal 70-100 [facility] Comment on above: Result Comment: [place] om Glucose Reference Range is dependent on time and content of last meal. Glucose of more than 200 mg/dL in a nonstressed, ambulatory subject supports the diagnosis of Diabetes Mellitus. ADA recommended reference range Performed By: #### C OVID-19 MARS, SOFIANEG #### [facility] [address] [place] [address] [place] Potassium [Moles/Vol] 3.6 mmol/L Normal 3.5-5.1 [facility] Comment on above: Performed By: #### C OVID-19 MARS, SOFIANEG #### [facility] [address] [place] [id number] [place] Sodium [Moles/Vol] 137 mmol/L Normal 136-146 [facility] Comment on above: Performed By: #### C OVID-19 MARS, SOFIANEG #### [facility] [address] [place] [address] [place] Urea nitrogen [Mass/Vol] 17 mg/dL Normal 9-23 [facility] Comment on above: Performed By: #### C OVID-19 MARS, SOFIANEG #### [facility] [address] [place] [id number] [place] Creatinine and Glomerular fi ltration rate.predicted panel (S/P/Bld)Ordered By: Enedelia Gomez on 03-11-2022 Creatinine [Mass/Vol] 1.28 mg/dL 0.64-1.27 [facility] Estimated glomerular filtrat ion rate (GFR) non- AmericanOrdered By: Enedelia Gomez on 03-11-2022 GFR/1.73 sq M.predicted among non-blacks MDRD (S/P/Bld) [Vol rate/Area] 54 mL/Min [facility] No Panel InformationOrdered By: Enedelia Gomez on 03-11-2022 Estimated GFR () > 60 mL/Min [facility] Comment on above: GFR estimated refere nce range: According to KDOQI guidelines, <60 ml/min/1.73m2 is sufficient to diagnose a patient with chronic kidney disease. Pharmacy Creatinine Clearance (Chem N/A [facility] No Panel Informationon 03-11 10.1\S\10.1 Normal 6.0-15.0 [facility] [employer] lauro 250 DO Work Phone: 9.9\S\9.9 Normal 8.2-10.2 [facility] [employer] lauro 250 DO Work Phone: Comment on above: PERFORMED BY:[facility] [place], [place] [id number] MEDICAL DIRECTORJAYY SANTA M.D. 30.5\S\30.5 above high threshold 22.0-30.0 [facility] tabulate lauro 250 DO Work Phone: 100\S\100 Normal 95-114 [facility] Harpreet restrepo 250 DO Work Phone: 3.6\S\3.6 Normal 3.5-5.1 [facility] Hrapreet restrepo 250 DO Work Phone: 137\S\137 Normal 136-146 [facility] Harpreet restrepo 250 DO Work Phone: > 60 Normal [facility] Harpreet restrepo 250 DO Work Phone: Comment on above: GFR estimated refere nce range: According to KDOQI guidelines, <60 ml/min/1.73m2 is sufficient to diagnose a patient with chronic kidney disease. 54\S\54 Normal [facility] Harpreet Acosta DO Work Phone: 1.28\S\1.28 above high threshold 0.64-1.27 [facility] Harpreet restrepo 250 DO Work Phone: 17\S\17 Normal 9-23 [facility] Harpreet restrepo 250 DO Work Phone: 96\S\96 Normal 70-100 [facility] Harpreet restrepo 250 DO Work Phone: Comment on above: Random Glucose Refer ence Range is dependent on time and content of last meal. Glucose of more than 200 mg/dL in a nonstressed, ambulatory subject supports the diagnosis of Diabetes Mellitus. ADA recommended reference range Serum or plasma anion gap de terminationOrdered By: Enedelia Gomez on 03-11-2022 Anion gap [Moles/Vol] 10.1 mmol/L 6.0-15.0 [facility] Serum or plasma calcium alistair urement (mass/volume)Ordered By: Enedelia Gomez on 03-11-2022 Calcium [Mass/Vol] 9.9 mg/dL 8.2-10.2 [facility] Serum or plasma chloride jaymie surement (moles/volume)Ordered By: Enedelia Gomez on 03-11-2022 Chloride [Moles/Vol] 100 mmol/L 95-114 [facility] Serum or plasma glucose alistair urement (mass/volume)Ordered By: Enedelia Gomez on 03-11-2022 Glucose [Mass/Vol] 96 mg/dL 70-100 [facility] Comment on above: ADA recommended refe rence rangeRandom Glucose Reference Range is dependent on time and content of last meal. Glucose of more than 200 mg/dL in a nonstressed, ambulatory subject supports the diagnosis of Diabetes Mellitus. Serum or plasma potassium me asurement (moles/volume)Ordered By: Enedelia Gomez on 03-11-2022 Potassium [Moles/Vol] 3.6 mmol/L 3.5-5.1 [facility] Serum or plasma sodium measu rement (moles/volume)Ordered By: Enedelia Gomez on 03-11-2022 Sodium [Moles/Vol] 137 mmol/L 136-146 [facility] Serum or plasma total carbon dioxide measurement (moles/volume)Ordered By: Enedelia Gomez on 03-11-2022 CO2 [Moles/Vol] 30.5 mmol/L 22.0-30.0 [facility] Serum or plasma urea nitroge n measurement (mass/volume)Ordered By: Enedelia Gomez on 03-11-2022 Urea nitrogen [Mass/Vol] 17 mg/dL 9-23 [facility] Office Visit (Cardiology)on 03-10-2022 Follow-up visit [...] ejection fraction LVEF 60-65% January 2022 echo (2016 LVEF 25%) Echocardiogram abnormal (793.2) (R93.1) January [...] Mcintyre July 2021. 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 He denies any palpitations or fast heartbeats. [...] of Cardiac catheterization History of Complete colonoscopy [facility] History of Epidural steroid injection History [...] TabletTAKE 1 (more content not included)... Normal Potential Tobacco Screening.on 023 Adult depression screening assessment No [facility] [employer] 250 DO Work Phone: Fall risk assessment b) One or more fall s in the last year [facility] [employer] DO Work Phone: Tobacco use status CPHS b) No [facility] [employer] 250 DO Work Phone: Basic Metabolic Panelon 11- Anion gap [Moles/Vol] 11.4 mmol/L Normal 6.0-15.0 [facility] Comment on above: Performed By: #### C BC, BMP #### [facility] [address] Calcium [Mass/Vol] 9.0 mg/dL Normal 8.2-10.2 [facility] Comment on above: Performed By: #### C BC, BMP #### [facility] [address] [place] [address] [place] Chloride [Moles/Vol] 95 mmol/L Normal 95-114 [facility] Comment on above: Performed By: #### C BC, BMP #### [facility] [address] CO2 [Moles/Vol] 29.6 mmol/L Normal 22.0-30.0 [facility] Comment on above: Performed By: #### C BC, BMP #### [facility] [address] Creatinine [Mass/Vol] 1.56 mg/dL High 0.64-1.27 [facility] Comment on above: Performed By: #### C BC, BMP #### [facility] [address] [place] [address] [place] Creatinine Clr Calc Pharmacy 39.79 [facility] Comment on above: Result Comment: PERF ORMED BY: [place] [address] PATHOLOGIST SHEET METAL DUCT INSTALLER JAYY SANTA M.D. Performed By: #### C BC, BMP #### [address] Estimated GFR ( Amarilis 52 [facility] Comment on above: Result Comment: GFR estimated reference range: According to KDOQI guidelines, <60 ml/min/1.73m2 is sufficient to diagnose a patient with chronic kidney disease. Performed By: #### C BC, BMP #### [facility] [address] Estimated GFR (Non- Am 43 [facility] Comment on above: Performed By: #### C BC, BMP #### [facility] [address] Glucose [Mass/Vol] 87 mg/dL Normal 70-100 [facility] Comment on above: Result Comment: [place] Glucose Reference Range is dependent on time and content of last meal. Glucose of more than 200 mg/dL in a nonstressed, ambulatory subject supports the diagnosis of Diabetes Mellitus. ADA recommended reference range Performed By: #### C BC, BMP #### [facility] [address] Potassium [Moles/Vol] 4.0 mmol/L Normal 3.5-5.1 [facility] Comment on above: Performed By: #### C BC, BMP #### [facility] [address] Sodium [Moles/Vol] 132 mmol/L Low 136-146 [facility] Comment on above: Performed By: #### C BC, BMP #### [facility] [address] Urea nitrogen [Mass/Vol] 29 mg/dL High 9-23 [facility] Comment on above: Performed By: #### C BC, BMP #### [facility] [address] [place] [address] [place] Basophils Auto (Bld) [#/Vol] Ordered By: Raji Ennis on 01-16-2022 Basophils (Bld) [#/Vol] 0.1 10*3/uL 0.0-0.2 [facility] Basophils/100 WBC Auto (Bld) Ordered By: Raji Ennis on 01-16-2022 Basophils/100 WBC (Bld) 1.0 % . [facility] Complete Blood Count Auto Di ffon 01-16-2022 Basophils (Bld) [#/Vol] 0.1 10*3/uL Normal 0.0-0.2 [facility] Comment on above: Result Comment: PERF ORMED BY: [place] [address] PATHOLOGIST SHEET METAL DUCT INSTALLER JAYY SANTA M.D. Performed By: #### C BC, BMP #### [facility] [address] [place] [address] Basophils/100 WBC (Bld) 1.0 % Normal . [facility] Comment on above: Performed By: #### C BC, BMP #### [address] Eosinophils (Bld) [#/Vol] 0.4 10*3/uL Normal 0.0-0.45 [facility] Comment on above: Performed By: #### C BC, BMP #### [address] Eosinophils/100 WBC (Bld) 5.6 % Normal . [facility] Comment on above: Performed By: #### C BC, BMP #### [address] Erythrocyte distribution width (RBC) [Ratio] 15.3 % High 12.0-14.8 [facility] Comment on above: Performed By: #### C BC, BMP #### [address] Hematocrit (Bld) [Volume fraction] 35.4 % Low 38.8-50.0 [facility] Comment on above: Performed By: #### C BC, BMP #### [address] Hemoglobin (Bld) [Mass/Vol] 11.8 g/dL Low 13.0-17.0 [facility] Comment on above: Performed By: #### C BC, BMP #### [address] Lymphocytes (Bld) [#/Vol] 1.1 10*3/uL Normal 1.00-4.8 [facility] Comment on above: Performed By: #### C BC, BMP #### [address] Lymphocytes/100 WBC (Bld) 17.1 % Normal . [facility] Comment on above: Performed By: #### C BC, BMP #### [address] MCH (RBC) [Entitic mass] 33.2 pg Normal 27.5-35.2 [facility] Comment on above: Performed By: #### C BC, BMP #### [address] MCV (RBC) [Entitic vol] 100.0 fL Normal 83.5-101 [facility] Comment on above: Performed By: #### C BC, BMP #### [address] Mean Corpuscular HGB Conc 33.3 g/dL Normal 32.5-35.6 [facility] Comment on above: Performed By: #### C KARTIK, BMP #### [address] Monocytes (Bld) [#/Vol] 0.8 10*3/uL Normal 0.0-0.8 [facility] Comment on above: Performed By: #### C BC, BMP #### [address] Monocytes/100 WBC (Bld) 11.9 % Normal . [facility] Comment on above: Performed By: #### C KARTIK, BMP #### [address] Neutrophils (Bld) [#/Vol] 4.2 10*3/uL Normal 1.8-7.7 [facility] Comment on above: Performed By: #### C BC, BMP #### [address] Neutrophils/100 WBC (Bld) 64.4 % Normal . [facility] Comment on above: Performed By: #### C BC, BMP #### [address] Nucleated RBC/100 WBC (Bld) [Ratio] 0.0 % Normal 0-0.5 [facility] Comment on above: Performed By: #### C BC, BMP #### [address] Platelet mean volume (Bld) [Entitic vol] 9.1 fL Normal 6.6-10.1 [facility] Comment on above: Performed By: #### C BC, BMP #### [facility] [address] [place] [address] [place] Platelets (Bld) [#/Vol] 195 10*3/uL Normal 150-450 [facility] Comment on above: Performed By: #### C BC, BMP #### [facility] [address] RBC (Bld) [#/Vol] 3.54 10*6/uL Low 3.90-5.60 [facility] Comment on above: Performed By: #### C BC, BMP #### [facility] [address] WBC (Bld) [#/Vol] 6.5 10*3/uL Normal 4.5-11.0 [facility] Comment on above: Performed By: #### C BC, BMP #### [facility] [address] Creatinine and Glomerular fi ltration rate.predicted panel (S/P/Bld)Ordered By: Raji Ennis on 01-16-2022 Creatinine [Mass/Vol] 1.56 mg/dL 0.64-1.27 [facility] Eosinophils Auto (Bld) [#/Vo l]Ordered By: RajiRobertson on 01-16-2022 Eosinophils (Bld) [#/Vol] 0.4 10*3/uL 0.0-0.45 [facility] Eosinophils/100 WBC Auto (Bl d)Ordered By: Raji Raymon on 01-16-2022 Eosinophils/100 WBC (Bld) 5.6 % . [facility] Erythrocyte distribution wid th Auto (RBC) [Ratio]Ordered By: Raji Ennis on 01-16-2022 Erythrocyte distribution width (RBC) [Ratio] 15.3 % 12.0-14.8 [facility] Estimated glomerular filtrat ion rate (GFR) non- AmericanOrdered By: Raji Ennis on 01-16-2022 GFR/1.73 sq M.predicted among non-blacks MDRD (S/P/Bld) [Vol rate/Area] 43 mL/Min [facility] Hematocrit Auto (Bld) [Volum e fraction]Ordered By: Raji Ennis on 01-16-2022 Hematocrit (Bld) [Volume fraction] 35.4 % 38.8-50.0 [facility] Hemoglobin [Mass/volume] in BloodOrdered By: Raji Ennis on 01-16-2022 Hemoglobin (Bld) [Mass/Vol] 11.8 g/dL 13.0-17.0 [facility] Laboratory - Hematology and Cell countsOrdered By: Raji Ennis on 01-16-2022 Nucleated RBC/100 WBC (Bld) [Ratio] 0.0 % 0-0.5 [facility] Leukocytes [#/volume] in Blo od by Automated countOrdered By: Raji Ennis on 01-16-2022 WBC (Bld) [#/Vol] 6.5 10*3/uL 4.5-11.0 [facility] Lymphocytes Auto (Bld) [#/Vo l]Ordered By: Raji Ennis on 01-16-2022 Lymphocytes (Bld) [#/Vol] 1.1 10*3/uL 1.00-4.8 [facility] Lymphocytes/100 WBC Auto (Bl d)Ordered By: Raji Ennis on 01-16-2022 Lymphocytes/100 WBC (Bld) 17.1 % . [facility] MCH Auto (RBC) [Entitic mass ]Ordered By: Raji Ennis on 01-16-2022 MCH (RBC) [Entitic mass] 33.2 pg 27.5-35.2 [facility] MCHC Auto (RBC) [Mass/Vol]Or dered By: Raji Ennis on 01-16-2022 MCHC (RBC) [Mass/Vol] 33.3 g/dL 32.5-35.6 [facility] MCV Auto (RBC) [Entitic vol] Ordered By: Raji Ennis on 01-16-2022 MCV (RBC) [Entitic vol] 100.0 fL 83.5-101 [facility] Monocytes Auto (Bld) [#/Vol] Ordered By: Raji Raymon on 01-16-2022 Monocytes (Bld) [#/Vol] 0.8 10*3/uL 0.0-0.8 [facility] Monocytes/100 WBC Auto (Bld) Ordered By: Raji Raymon on 01-16-2022 Monocytes/100 WBC (Bld) 11.9 % . [facility] Neutrophils Auto (Bld) [#/Vo l]Ordered By: Raji Raymon on 01-16-2022 Neutrophils (Bld) [#/Vol] 4.2 10*3/uL 1.8-7.7 [facility] Neutrophils/100 WBC Auto (Bl d)Ordered By: Raji Raymon on 01-16-2022 Neutrophils/100 WBC (Bld) 64.4 % . [facility] No Panel InformationOrdered By: Raji Ennis on 01-16-2022 Estimated GFR () 52 mL/Min [facility] Comment on above: GFR estimated refere nce range: According to KDOQI guidelines, <60 ml/min/1.73m2 is sufficient to diagnose a patient with chronic kidney disease. Pharmacy Creatinine Clearance (Chem 39.79 [facility] Platelet mean volume Auto (B ld) [Entitic vol]Ordered By: Raji Raymon on 01-16-2022 Platelet mean volume (Bld) [Entitic vol] 9.1 fL 6.6-10.1 [facility] Platelets Auto (Bld) [#/Vol] Ordered By: Raji Raymon on 01-16-2022 Platelets (Bld) [#/Vol] 195 10*3/uL 150-450 [facility] RBC Auto (Bld) [#/Vol]Ordere d By: Raji Raymon on 01-16-2022 RBC (Bld) [#/Vol] 3.54 10*6/uL 3.90-5.60 [facility] Serum or plasma anion gap de terminationOrdered By: Raji Raymon on 01-16-2022 Anion gap [Moles/Vol] 11.4 mmol/L 6.0-15.0 [facility] Serum or plasma calcium alistair urement (mass/volume)Ordered By: RajiStaufferam on 01-16-2022 Calcium [Mass/Vol] 9.0 mg/dL 8.2-10.2 [facility] Serum or plasma chloride jaymie surement (moles/volume)Ordered By: Raji [facility] on 01-16-2022 Chloride [Moles/Vol] 95 mmol/L 95-114 [facility] Serum or plasma glucose alistair urement (mass/volume)Ordered By: Raji [facility] on 01-16-2022 Glucose [Mass/Vol] 87 mg/dL 70-100 [facility] Comment on above: ADA recommended refe rence rangeRandom Glucose Reference Range is dependent on time and content of last meal. Glucose of more than 200 mg/dL in a nonstressed, ambulatory subject supports the diagnosis of Diabetes Mellitus. Serum or plasma potassium me asurement (moles/volume)Ordered By: Rjai [facility] on 01-16-2022 Potassium [Moles/Vol] 4.0 mmol/L 3.5-5.1 [facility] Serum or plasma sodium measu rement (moles/volume)Ordered By: [facility] on 01-16-2022 Sodium [Moles/Vol] 132 mmol/L 136-146 [facility] Serum or plasma total carbon dioxide measurement (moles/volume)Ordered By: Raji [facility] on 01-16-2022 CO2 [Moles/Vol] 29.6 mmol/L 22.0-30.0 [facility] Serum or plasma urea nitroge n measurement (mass/volume)Ordered By: Raji [facility] on 01-16-2022 Urea nitrogen [Mass/Vol] 29 mg/dL 9-23 [facility] Basic Metabolic Panelon 01-05 Anion gap [Moles/Vol] 8.2 mmol/L Normal 6.0-15.0 [facility] Comment on above: Performed By: #### B MP, CBC #### [address] Calcium [Mass/Vol] 8.8 mg/dL Normal 8.2-10.2 [facility] Comment on above: Performed By: #### B MP, CBC #### [facility] [address] [place] [address] [place] Chloride [Moles/Vol] 94 mmol/L Low 95-114 [facility] Comment on above: Performed By: #### B MP, CBC #### [facility] [address] CO2 [Moles/Vol] 31.7 mmol/L High 22.0-30.0 [facility] Comment on above: Performed By: #### B MP, CBC #### [facility] [address] Creatinine [Mass/Vol] 1.50 mg/dL High 0.64-1.27 [facility] Comment on above: Performed By: #### B MP, CBC #### [facility] [address] [place] [address] [place] Creatinine Clr Calc Pharmacy 41.13 [facility] Comment on above: Result Comment: PERF ORMED BY: [place] [address] PATHOLOGIST SHEET METAL DU[employer] INSTALLER JAYY SANTA M.D. Performed By: #### B MP, CBC #### [address] Estimated GFR ( Amarilis 54 [facility] Comment on above: Result Comment: GFR estimated reference range: According to KDOQI guidelines, <60 ml/min/1.73m2 is sufficient to diagnose a patient with chronic kidney disease. Performed By: #### B MP, CBC #### [facility] [address] [place] [address] [place] Estimated GFR (Non- Am 45 [facility] Comment on above: Performed By: #### B MP, CBC #### [address] Glucose [Mass/Vol] 87 mg/dL Normal 70-100 [facility] Comment on above: Result Comment: [place] Glucose Reference Range is dependent on time and content of last meal. Glucose of more than 200 mg/dL in a nonstressed, ambulatory subject supports the diagnosis of Diabetes Mellitus. ADA recommended reference range Performed By: #### B MP, CBC #### [address] Potassium [Moles/Vol] 3.9 mmol/L Normal 3.5-5.1 [facility] Comment on above: Performed By: #### B MP, CBC #### [address] Sodium [Moles/Vol] 130 mmol/L Low 136-146 [facility] Comment on above: Performed By: #### B MP, CBC #### [address] Urea nitrogen [Mass/Vol] 29 mg/dL High 9-23 [facility] Comment on above: Performed By: #### B MP, CBC #### [address] Complete Blood Count Auto Di ffon 01-15-2022 Basophils (Bld) [#/Vol] 0.1 10*3/uL Normal 0.0-0.2 [facility] Comment on above: Result Comment: PERF ORMED BY: [place] [address] PATHOLOGIST SHEET MET[employer] INSTALLER JAYY SANTA M.D. Performed By: #### B MP, CBC #### [place] [address] [place] Basophils/100 WBC (Bld) 0.7 % Normal . [facility] Comment on above: Performed By: #### B MP, CBC #### [place] [address] [place] Eosinophils (Bld) [#/Vol] 0.4 10*3/uL Normal 0.0-0.45 [facility] Comment on above: Performed By: #### B MP, CBC #### [address] Eosinophils/100 WBC (Bld) 4.9 % Normal . [facility] Comment on above: Performed By: #### B MP, CBC #### [facility] [address] Erythrocyte distribution width (RBC) [Ratio] 15.3 % High 12.0-14.8 [facility] Comment on above: Performed By: #### B MP, CBC #### [facility] [address] Hematocrit (Bld) [Volume fraction] 34.7 % Low 38.8-50.0 [facility] Comment on above: Performed By: #### B MP, CBC #### [facility] [address] Hemoglobin (Bld) [Mass/Vol] 11.7 g/dL Low 13.0-17.0 [facility] Comment on above: Performed By: #### B MP, CBC #### [address] Lymphocytes (Bld) [#/Vol] 1.0 10*3/uL Normal 1.00-4.8 [facility] Comment on above: Performed By: #### B MP, CBC #### [address] Lymphocytes/100 WBC (Bld) 13.2 % Normal . [facility] Comment on above: Performed By: #### B MP, CBC #### [address] MCH (RBC) [Entitic mass] 33.7 pg Normal 27.5-35.2 [facility] Comment on above: Performed By: #### B MP, CBC #### [address] MCV (RBC) [Entitic vol] 99.8 fL Normal 83.5-101 [facility] Comment on above: Performed By: #### B MP, CBC #### [address] Mean Corpuscular HGB Conc 33.8 g/dL Normal 32.5-35.6 [facility] Comment on above: Performed By: #### B MP, CBC #### [facility] [address] [place] [address] [place] Monocytes (Bld) [#/Vol] 0.8 10*3/uL Normal 0.0-0.8 [facility] Comment on above: Performed By: #### B MP, CBC #### [facility] [address] [place] [id number] [place] Monocytes/100 WBC (Bld) 10.1 % Normal . [facility] Comment on above: Performed By: #### B MP, CBC #### [facility] [address] [place] [address] [place] Neutrophils (Bld) [#/Vol] 5.6 10*3/uL Normal 1.8-7.7 [facility] Comment on above: Performed By: #### B MP, CBC #### [facility] [address] Neutrophils/100 WBC (Bld) 71.1 % Normal . [facility] Comment on above: Performed By: #### B MP, CBC #### [facility] [address] [place] [address] [place] Nucleated RBC/100 WBC (Bld) [Ratio] 0.0 % Normal 0-0.5 [facility] Comment on above: Performed By: #### B MP, CBC #### [facility] [address] [place] [address] [place] Platelet mean volume (Bld) [Entitic vol] 9.1 fL Normal 6.6-10.1 [facility] Comment on above: Performed By: #### B MP, CBC #### [facility] [address] [place] [address] [place] Platelets (Bld) [#/Vol] 180 10*3/uL Normal 150-450 [facility] Comment on above: Performed By: #### B MP, CBC #### [facility] [address] [place] [address] [place] RBC (Bld) [#/Vol] 3.48 10*6/uL Low 3.90-5.60 [facility] Comment on above: Performed By: #### B MP, CBC #### [facility] [address] [place] [id number] [facility] WBC (Bld) [#/Vol] 7.9 10*3/uL Normal 4.5-11.0 [facility] Comment on above: Performed By: #### B MP, CBC #### [facility] [address] [place] [address] Urine culture routineOrdered By: Victor Manuel Reynolds on 01-15-2022 Bacteria identified Cx Nom (U) No Growth 2 Days [facility] CT hip RT wo conon 2 CT hip RT wo con [facility] [address] [place] [address] CT Scan Report Signed Patient: Irineo Wallis Jr MR#: [id number] : 1940 Acct:[id number] Age/Sex: 81 / M ADM Date: 01/09/22 Loc: Room: [address] [place] [address] Type: ADM IN Attending Dr: Raji Ennis [...] Esa Cardoso M.D.01/14/2022 4:23 PM Dictation Location: [place] [address] Transcribed By: [facility] 01/14/22 1623 Dictated By: Esa Cardoso DO 01/14/22 1608 Signed By: 01/14/22 1624 [facility] XR hip RT 1Von 01-14-2022 XR hip RT 1V [facility] [address] [place] [address] XRay Report Signed Patient: Irineo Wallis Jr MR#: [id number] : 1940 Acct:[id number] Age/Sex: 81 / M ADM Date: 01/09/22 Loc: Room: [address] [place] [address] Type: ADM IN Attending Dr: Raji Ennis [...] RECOMMENDED.. Impression dictated by: Ortega Groves Jr., D.O.01/14/2022 9:04 AM Dictation Location: [place] [address] Transcribed By: [facility] 01/14/22903 Dictated By: Ortega Groves Jr, DO 01/14/22902 Signed By: 01/14/22903 [facility] Automated erythrocytes count in urine sediment (number/area)Ordered By: Victor Manuel Reynolds on 01-13-2022 RBC Auto (Urine sed) [#/Area] 50-100 [HPF] 0-4 [facility] Automated leukocytes count i n urine sediment (number/area)Ordered By: Victor Manuel Reynolds on 01-13-2022 WBC Auto (Urine sed) [#/Area] 5-9 [HPF] 0-4 [facility] Basic Metabolic Panelon Anion gap [Moles/Vol] 8.3 mmol/L Normal 6.0-15.0 [facility] Comment on above: Performed By: #### B MP, CBC #### [facility] [address] Calcium [Mass/Vol] 8.5 mg/dL Normal 8.2-10.2 [facility] Comment on above: Performed By: #### B MP, CBC #### [facility] [address] [place] [address] [place] Chloride [Moles/Vol] 93 mmol/L Low 95-114 [facility] Comment on above: Performed By: #### B MP, CBC #### [facility] [address] CO2 [Moles/Vol] 32.6 mmol/L High 22.0-30.0 [facility] Comment on above: Performed By: #### B MP, CBC #### [facility] [address] [place] [address] Creatinine [Mass/Vol] 1.44 mg/dL High 0.64-1.27 [facility] Comment on above: Performed By: #### B MP, CBC #### [facility] [address] [place] [address] [place] Creatinine Clr Calc Pharmacy 43.24 [facility] Comment on above: Result Comment: PERF ORMED BY: [place] [address] PATHOLOGIST SHEET METAL [employer] INSTALLER JAYY SANTA M.D. Performed By: #### B MP, CBC #### [address] Estimated GFR ( Amarilis 57 [facility] Comment on above: Result Comment: GFR estimated reference range: According to KDOQI guidelines, <60 ml/min/1.73m2 is sufficient to diagnose a patient with chronic kidney disease. Performed By: #### B MP, CBC #### [facility] [address] [place] [address] [place] Estimated GFR (Non- Am 47 [facility] Comment on above: Performed By: #### B MP, CBC #### [facility] [address] Glucose [Mass/Vol] 92 mg/dL Normal 70-100 [facility] Comment on above: Result Comment: [place] Glucose Reference Range is dependent on time and content of last meal. Glucose of more than 200 mg/dL in a nonstressed, ambulatory subject supports the diagnosis of Diabetes Mellitus. ADA recommended reference range Performed By: #### B MP, CBC #### [facility] [address] Potassium [Moles/Vol] 3.9 mmol/L Normal 3.5-5.1 [facility] Comment on above: Performed By: #### B MP, CBC #### [address] Sodium [Moles/Vol] 130 mmol/L Low 136-146 [facility] Comment on above: Performed By: #### B MP, CBC #### [address] Urea nitrogen [Mass/Vol] 24 mg/dL High 9-23 [facility] Comment on above: Performed By: #### B MP, CBC #### [address] Bilirubin Test strip Ql (U)O rdered By: Victor Manuel Reynolds on 01-13-2022 Bilirubin Ql (U) Negative Negative [facility] Color Auto (U)Ordered By: Brigitte Reynolds on 01-13-2022 Color (U) Yellow Yellow [facility] Complete Blood Count Auto Di ffon 01-13-2022 Basophils (Bld) [#/Vol] 0.1 10*3/uL Normal 0.0-0.2 [facility] Comment on above: Result Comment: PERF ORMED BY: [place] [address] PATHOLOGIST SHEET METAL [employer] INSTALLER JAYY SANTA M.D. Performed By: #### B MP, CBC #### [place] [address] [place] Basophils/100 WBC (Bld) 1.0 % Normal . [facility] Comment on above: Performed By: #### B MP, CBC #### [facility] [address] Eosinophils (Bld) [#/Vol] 0.1 10*3/uL Normal 0.0-0.45 [facility] Comment on above: Performed By: #### B MP, CBC #### [facility] [address] [place] [address] [place] Eosinophils/100 WBC (Bld) 0.7 % Normal . [facility] Comment on above: Performed By: #### B MP, CBC #### [facility] [address] Erythrocyte distribution width (RBC) [Ratio] 15.7 % High 12.0-14.8 [facility] Comment on above: Performed By: #### B MP, CBC #### [facility] [address] Hematocrit (Bld) [Volume fraction] 37.7 % Low 38.8-50.0 [facility] Comment on above: Performed By: #### B MP, CBC #### [facility] [address] Hemoglobin (Bld) [Mass/Vol] 12.4 g/dL Low 13.0-17.0 [facility] Comment on above: Performed By: #### B MP, CBC #### [facility] [address] [place] [address] [place] Lymphocytes (Bld) [#/Vol] 1.2 10*3/uL Normal 1.00-4.8 [facility] Comment on above: Performed By: #### B MP, CBC #### [facility] [address] [place] [address] [place] Lymphocytes/100 WBC (Bld) 13.0 % Normal . [facility] Comment on above: Performed By: #### B MP, CBC #### [facility] [address] [place] [address] [place] MCH (RBC) [Entitic mass] 33.2 pg Normal 27.5-35.2 [facility] Comment on above: Performed By: #### B MP, CBC #### [facility] [address] MCV (RBC) [Entitic vol] 100.8 fL Normal 83.5-101 [facility] Comment on above: Performed By: #### B MP, CBC #### [facility] [address] Mean Corpuscular HGB Conc 33.0 g/dL Normal 32.5-35.6 [facility] Comment on above: Performed By: #### B MP, CBC #### [facility] [address] Monocytes (Bld) [#/Vol] 1.2 10*3/uL High 0.0-0.8 [facility] Comment on above: Performed By: #### B MP, CBC #### [facility] [address] [place] [address] [place] Monocytes/100 WBC (Bld) 13.1 % Normal . [facility] Comment on above: Performed By: #### B MP, CBC #### [facility] [address] [place] [address] [place] Neutrophils (Bld) [#/Vol] 6.8 10*3/uL Normal 1.8-7.7 [facility] Comment on above: Performed By: #### B MP, CBC #### [facility] [address] [place] [address] [place] Neutrophils/100 WBC (Bld) 72.2 % Normal . [facility] Comment on above: Performed By: #### B MP, CBC #### [facility] [address] [place] [address] [place] Nucleated RBC/100 WBC (Bld) [Ratio] 0.1 % Normal 0-0.5 [facility] Comment on above: Performed By: #### B MP, CBC #### [facility] [address] Platelet mean volume (Bld) [Entitic vol] 9.3 fL Normal 6.6-10.1 [facility] Comment on above: Performed By: #### B MP, CBC #### [facility] [address] Platelets (Bld) [#/Vol] 162 10*3/uL Significant change down 150-450 [facility] Comment on above: Performed By: #### B MP, CBC #### [facility] [address] [place] [address] RBC (Bld) [#/Vol] 3.74 10*6/uL Low 3.90-5.60 [facility] Comment on above: Performed By: #### B MP, CBC #### [address] WBC (Bld) [#/Vol] 9.4 10*3/uL Normal 4.5-11.0 [facility] Comment on above: Performed By: #### B MP, CBC #### [address] Dipstick and Microscopicon 1 03-15-2021 Appearance (U) Clear Normal Clear [facility] Comment on above: Order Comment: Name Collection Type:: Chou Catheter Performed By: #### C UU, ADDONUAPLUS #### [address] Bacteria,Urine None Seen Normal None Seen [facility] Comment on above: Order Comment: Name Collection Type:: Chou Catheter Performed By: #### C UU, ADDONUAPLUS #### [address] Bilirubin,Urine Negative Normal Negative [facility] Comment on above: Order Comment: Name Collection Type:: Chou Catheter Performed By: #### C UU, ADDONUAPLUS #### [address] Color (U) Yellow Normal Yellow [facility] Comment on above: Order Comment: Name Collection Type:: Chou Catheter Performed By: #### C UU, ADDONUAPLUS #### [place] [address] [place] Glucose Ql (U) Normal Normal Normal [facility] Comment on above: Order Comment: Name Collection Type:: Chou Catheter Performed By: #### C UU, ADDONUAPLUS #### [address] Hyaline Casts,Urine 0-8 Normal 0-8 [facility] Comment on above: Order Comment: Name Collection Type:: Chou Catheter Result Comment: PERF ORMED BY: [place] [address] PATHOLOGIST SHEET METAL [employer] INSTALLER JAYY SANTA M.D. Performed By: #### C UU, ADDONUAPLUS #### [facility] [address] [place] [address] Ketones Ql (U) Negative Normal Negative [facility] Comment on above: Order Comment: Name Collection Type:: Chou Catheter Performed By: #### C UU, ADDONUAPLUS #### [facility] [address] [place] [address] Leukocyte esterase Test strip Ql (U) 2+ High Negative [facility] Comment on above: Order Comment: Name Collection Type:: Chou Catheter Performed By: #### C UU, ADDONUAPLUS #### [address] Nitrite,Urine Negative Normal Negative [facility] Comment on above: Order Comment: Name Collection Type:: Chou Catheter Performed By: #### C UU, ADDONUAPLUS #### [facility] [address] [place] [address] Occult Blood,Urine 3+ High Negative [facility] Comment on above: Order Comment: Name Collection Type:: Chou Catheter Result Comment: PERF ORMED BY: [place] [address] PATHOLOGIST SHEET METAL [employer] INSTALLER JAYY SANTA M.D. Performed By: #### C UU, ADDONUAPLUS #### [facility] [address] [place] [address] [place] pH (U) 5.5 [pH] Normal 5.0-9.0 [facility] Comment on above: Order Comment: Name Collection Type:: Chou Catheter Performed By: #### C UU, ADDONUAPLUS #### [facility] [address] [place] [address] Protein (U) [Mass/Vol] 30 mg/dL High Negative [facility] Comment on above: Order Comment: Name Collection Type:: Chou Catheter Performed By: #### C UU, ADDONUAPLUS #### [address] RBC,Urine 50-100 High 0-4 [facility] Comment on above: Order Comment: Name Collection Type:: Chou Catheter Performed By: #### C UU, ADDONUAPLUS #### [address] Specificy [place],Urine 1.012 Normal 1.001-1.03 0 [facility] Comment on above: Order Comment: Name Collection Type:: Chou Catheter Performed By: #### C UU, ADDONUAPLUS #### [address] Squamous Epithelial Cell,Urine 0-1 Normal 0-2 [facility] Comment on above: Order Comment: Name Collection Type:: Chou Catheter Performed By: #### C UU, ADDONUAPLUS #### [address] Urobilinogen,Urine Normal Normal Normal [facility] Comment on above: Order Comment: Name Collection Type:: Chou Catheter Performed By: #### C UU, ADDONUAPLUS #### [facility] [address] [place] [address] [place] WBC,Urine 5-9 High 0-4 [facility] Comment on above: Order Comment: Name Collection Type:: Chou Catheter Performed By: #### C UU, ADDONUAPLUS #### [facility] [address] [place] [address] Ketones Auto test strip (U) [Mass/Vol]Ordered By: Victor Manuel Reynolds on 01-13-2022 Ketones (U) [Mass/Vol] Negative Negative [facility] Laboratory - UrinalysisOrder ed By: Victor Manuel Gail on 01-13-2022 Hyaline casts LM Ql (Urine sed) 0-8 [LPF] 0-8 [facility] MR lumbar spine wo/w conon 1 03-15-2021 MR lumbar spine wo/w con [facility] [address] [place] [address] MRI Report Signed Patient: Irineo Wallis Jr MR#: [id number] : 1940 Acct:[id number] Age/Sex: 81 / M ADM Date: 01/09/22 Loc: Room: [address] [place] [address] Type: ADM IN Attending Dr: Raji Ennis [...] Esa Cardoso M.D.01/13/2022 12:12 PM Dictation Location: [place] [address] Transcribed By: [facility] 01/13/22 1212 Dictated By: Esa Cardoso DO 01/13/22 1205 Signed By: 01/13/22 1212 Normal [facility] Nitrite Test strip Ql (U)Ord ered By: Victor Manuel Reynolds on 01-13-2022 Nitrite Ql (U) Negative Negative [facility] Protein Auto test strip (U) [Mass/Vol]Ordered By: Victor Manuel Reynolds on 01-13-2022 Protein (U) [Mass/Vol] 30 mg/dL Negative Fi [facility] Serum or plasma uric acid me asurement (mass/volume)Ordered By: Victor Manuel Reynolds on 01-13-2022 Urate [Mass/Vol] 4.7 mg/dL 2.6-7.2 [facility] Serum or plasma vancomycin m easurement (mass/volume)Ordered By: Raji Ennis on 01-13-2022 Vancomycin [Mass/Vol] 9.7 ug/mL 5.0-20.0 [facility] Comment on above: Last dose: - Specific gravity Auto test s trip (U) [Rel density]Ordered By: Victor Manuel Reynolds on 01-13-2022 Specific gravity (U) [Rel density] 1.012 1.001-1.03 0 [facility] Squamous epithelial cells de tection in urine sediment by light microscopyOrdered By: Victor Manuel Reynolds on 01-13-2022 Epithelial cells.squamous LM Ql (Urine sed) 0-1 [HPF] 0-2 [facility] Uric Acidon 01-13-2022 Urate [Mass/Vol] 4.7 mg/dL Normal 2.6-7.2 [facility] Comment on above: Result Comment: PERF ORMED BY: [place] [address] PATHOLOGIST SHEET METAL DUCT INSTALLER JAYY SANTA M.D. Performed By: #### U FIONA #### [facility] [address] [place] [address] Urine Cultureon 01-13-2022 Bacteria identified Cx Nom (U) No Growth 2 Days PERFORMED BY: [place] [address] PATHOLOGIST SHEET METAL DUCT INSTALLER JAYY SANTA M.D. [facility] Comment on above: Performed By: #### C UU, ADDONUAPLUS #### [facility] [address] [place] [address] Urine bacteria detection by automated methodOrdered By: Victor Manuel Reynolds on 01-13-2022 Bacteria Auto Ql (U) None seen None Seen [facility] Urine clarity by refractomet ry automatedOrdered By: Victor Manuel Reynolds on 01-13-2022 Clarity Refractometry automated (U) Clear Clear [facility] Urine culture routineOrdered By: Victor Manuel Reynolds on 01-13-2022 Bacteria identified Cx Nom (U) No Growth 2 Days [facility] Urine glucose measurement by automated test strip (mass/volume)Ordered By: Victor Manuel Reynolds on 01-13-2022 Glucose Auto test strip (U) [Mass/Vol] Normal mg/dL Normal [facility] Urine hemoglobin detection b y automated test stripOrdered By: Victor Manuel Reynolds on 01-13-2022 Hemoglobin Auto test strip Ql (U) 3+ Negative [facility] Urine leukocyte esterase det ection by automated test stripOrdered By: Victor Manuel Reynolds on 01-13-2022 Leukocyte esterase Auto test strip Ql (U) 2+ Negative [facility] Urobilinogen Auto test strip (U) [Mass/Vol]Ordered By: Victor Manuel Reynolds on 01-13-2022 Urobilinogen (U) [Mass/Vol] Normal mg/dL Normal [facility] Vancomycin,Randomon 01-14-20 Vancomycin,Random 9.7 ug/mL Normal 5.0-20.0 [facility] Comment on above: Order Comment: Date of last dose?: [id number] Time of last dose?: 1530 Result Comment: Last dose: - PERFORMED BY: [place] [address] PATHOLOGIST SHEET METAL DUCT INSTALLER JAYY SANTA M.D. Performed By: #### C OVID-19 JOSE CREWS #### [address] pH Auto test strip (U)Ordere d By: Victor Manuel Reynolds on 01-13-2022 pH (U) 5.5 [pH] 5.0-9.0 [facility] Bacterial blood cultureOrder ed By: Raji Ennis on 01-12-2022 Bacteria identified Cx Nom (Bld) NO GROWTH 5 DAYS [facility] Basic Metabolic Panelon 11-0 Anion gap [Moles/Vol] 10.4 mmol/L Normal 6.0-15.0 [facility] Comment on above: Performed By: #### C BC, BMP #### [address] Calcium [Mass/Vol] 8.9 mg/dL Normal 8.2-10.2 [facility] Comment on above: Performed By: #### C BC, BMP #### [address] Chloride [Moles/Vol] 94 mmol/L Low 95-114 [facility] Comment on above: Performed By: #### C BC, BMP #### [facility] [address] [place] [address] CO2 [Moles/Vol] 31.4 mmol/L High 22.0-30.0 [facility] Comment on above: Performed By: #### C BC, BMP #### [facility] [address] Creatinine [Mass/Vol] 1.53 mg/dL High 0.64-1.27 [facility] Comment on above: Performed By: #### C BC, BMP #### [facility] [address] [place] [address] [place] Creatinine Clr Calc Pharmacy 40.96 Normal [facility] Comment on above: Result Comment: PERF ORMED BY: [place] [address] PATHOLOGIST SHEET METAL DU[employer] INSTALLER JAYY SANTA M.D. Performed By: #### C BC, BMP #### [facility] [address] Estimated GFR ( Amarilis 53 [facility] Comment on above: Result Comment: GFR estimated reference range: According to KDOQI guidelines, <60 ml/min/1.73m2 is sufficient to diagnose a patient with chronic kidney disease. Performed By: #### C BC, BMP #### [address] Estimated GFR (Non- Am 44 [facility] Comment on above: Performed By: #### C BC, BMP #### [address] Glucose [Mass/Vol] 99 mg/dL Normal 70-100 [facility] Comment on above: Result Comment: [place] Glucose Reference Range is dependent on time and content of last meal. Glucose of more than 200 mg/dL in a nonstressed, ambulatory subject supports the diagnosis of Diabetes Mellitus. ADA recommended reference range Performed By: #### C BC, BMP #### [address] Potassium [Moles/Vol] 3.8 mmol/L Normal 3.5-5.1 [facility] Comment on above: Performed By: #### C BC, BMP #### [place] [address] [place] Sodium [Moles/Vol] 132 mmol/L Low 136-146 [facility] Comment on above: Performed By: #### C BC, BMP #### [address] Urea nitrogen [Mass/Vol] 22 mg/dL Normal 9-23 [facility] Comment on above: Performed By: #### C BC, BMP #### [address] Blood Cultureon 01-12-2022 Bacteria identified Cx Nom (Bld) NO GROWTH 5 DAYS PERFORMED BY: [place] [address] PATHOLOGIST SHEET METAL DU[employer] INSTALLER JAYY SANTA M.D. [facility] Comment on above: Performed By: #### C BC, BMP #### [address] Bacteria identified Cx Nom (Bld) NO GROWTH 5 DAYS PERFORMED BY: [place] [address] PATHOLOGIST SHEET MET[employer] DU[employer] INSTALLER JAYY SANTA M.D. [facility] Comment on above: Performed By: #### C BC, BMP #### [address] C reactive protein [Mass/vol ume] in Serum or PlasmaOrdered By: Raji Ennis on 01-12-2022 CRP [Mass/Vol] 8.4 mg/dL 0.0-1.0 [facility] C-Reactive Proteinon 022 C-Reactive Protein 8.4 mg/dL High 0.0-1.0 [facility] Comment on above: Order Comment: Coral nt can use prior labs if possible Result Comment: PERF ORMED BY: [place] [address] PATHOLOGIST SHEET METAL DUCT INSTALLER JAYY SANTA M.D. Performed By: #### C BC, BMP #### [address] Complete Blood Count Auto Di ffon 01-12-2022 Basophils (Bld) [#/Vol] 0.1 10*3/uL Normal 0.0-0.2 [facility] Comment on above: Result Comment: PERF ORMED BY: [place] [address] PATHOLOGIST SHEET METAL DU[employer] INSTALLER JAYY SANTA M.D. Performed By: #### C BC, BMP #### [place] [address] [place] Basophils/100 WBC (Bld) 0.5 % Normal . [facility] Comment on above: Performed By: #### C BC, BMP #### [facility] [address] Eosinophils (Bld) [#/Vol] 0.2 10*3/uL Normal 0.0-0.45 [facility] Comment on above: Performed By: #### C BC, BMP #### [facility] [address] Eosinophils/100 WBC (Bld) 1.9 % Normal . [facility] Comment on above: Performed By: #### C BC, BMP #### [address] Erythrocyte distribution width (RBC) [Ratio] 15.5 % High 12.0-14.8 [facility] Comment on above: Performed By: #### C BC, BMP #### [address] Hematocrit (Bld) [Volume fraction] 38.8 % Normal 38.8-50.0 [facility] Comment on above: Performed By: #### C BC, BMP #### [address] Hemoglobin (Bld) [Mass/Vol] 12.9 g/dL Low 13.0-17.0 [facility] Comment on above: Performed By: #### C BC, BMP #### [address] Lymphocytes (Bld) [#/Vol] 1.2 10*3/uL Normal 1.00-4.8 [facility] Comment on above: Performed By: #### C BC, BMP #### [address] Lymphocytes/100 WBC (Bld) 12.2 % Normal . [facility] Comment on above: Performed By: #### C BC, BMP #### [address] MCH (RBC) [Entitic mass] 33.6 pg Normal 27.5-35.2 [facility] Comment on above: Performed By: #### C BC, BMP #### [facility] [address] MCV (RBC) [Entitic vol] 100.8 fL Normal 83.5-101 [facility] Comment on above: Performed By: #### C BC, BMP #### [facility] [address] Mean Corpuscular HGB Conc 33.3 g/dL Normal 32.5-35.6 [facility] Comment on above: Performed By: #### C BC, BMP #### [facility] [address] Monocytes (Bld) [#/Vol] 0.9 10*3/uL High 0.0-0.8 [facility] Comment on above: Performed By: #### C BC, BMP #### [facility] [address] Monocytes/100 WBC (Bld) 9.1 % Normal . [facility] Comment on above: Performed By: #### C BC, BMP #### [facility] [address] Neutrophils (Bld) [#/Vol] 7.7 10*3/uL Normal 1.8-7.7 [facility] Comment on above: Performed By: #### C BC, BMP #### [facility] [address] Neutrophils/100 WBC (Bld) 76.3 % Normal . [facility] Comment on above: Performed By: #### C BC, BMP #### [facility] [address] [place] [address] [place] Nucleated RBC/100 WBC (Bld) [Ratio] 0.1 % Normal 0-0.5 [facility] Comment on above: Performed By: #### C BC, BMP #### [facility] [address] Platelet mean volume (Bld) [Entitic vol] 8.8 fL Normal 6.6-10.1 [facility] Comment on above: Performed By: #### C BC, BMP #### [facility] [address] Platelets (Bld) [#/Vol] 214 10*3/uL Normal 150-450 [facility] Comment on above: Performed By: #### C BC, BMP #### [facility] [address] RBC (Bld) [#/Vol] 3.85 10*6/uL Low 3.90-5.60 [facility] Comment on above: Performed By: #### C BC, BMP #### [facility] [address] WBC (Bld) [#/Vol] 10.1 10*3/uL Normal 4.5-11.0 [facility] Comment on above: Performed By: #### C BC, BMP #### [address] XR chest 1V portableon 01-12 XR chest 1V portable [facility] [address] [place] [address] XRay Report Signed Patient: Irineo Wallis Jr MR#: [id number] : 1940 Acct:[id number] Age/Sex: 81 / M ADM Date: 01/09/22 Loc: Room: [address] [place] [address] Type: ADM IN Attending Dr: Raji Ennis [...] Esa Cardoso M.D.01/12/2022 12:47 PM Dictation Location: [place] [address] Transcribed By: [facility] 01/12/22 124 Dictated By: Esa Cardoso DO 01/12/22 1245 Signed By: 01/12/22 1247 [facility] Albumin [Mass/volume] in Ser um or PlasmaOrdered By: Vikas Mane on 01-11-2022 Albumin [Mass/Vol] 2.9 g/dL 2.9-4.4 [facility] Basic Metabolic Panelon Anion gap [Moles/Vol] 10.6 mmol/L Normal 6.0-15.0 [facility] Comment on above: Performed By: #### C OVID-19 MARS, SOFIANEG #### [facility] [address] [place] [address] [place] Calcium [Mass/Vol] 8.7 mg/dL Normal 8.2-10.2 [facility] Comment on above: Performed By: #### C OVID-19 MARS, SOFIANEG #### [facility] [address] [place] [address] [place] Chloride [Moles/Vol] 98 mmol/L Normal 95-114 [facility] Comment on above: Performed By: #### C OVID-19 MARS, SOFIANEG #### [facility] [address] [place] [address] [place] CO2 [Moles/Vol] 28.8 mmol/L Normal 22.0-30.0 [facility] Comment on above: Performed By: #### C OVID-19 MARS, SOFIANEG #### [facility] [address] [place] [address] [place] Creatinine [Mass/Vol] 1.49 mg/dL High 0.64-1.27 [facility] Comment on above: Performed By: #### C OVID-19 MARS, SOFIANEG #### [facility] [address] [place] [address] [place] Creatinine Clr Calc Pharmacy 42.37 [facility] Comment on above: Result Comment: PERF ORMED BY: [place] [address] PATHOLOGIST SHEET METAL DU[employer] INSTALLER JAYY SANTA M.D. Performed By: #### C OVID-19 MARS, SOFIANEG #### [address] Estimated GFR ( Amarilis 55 [facility] Comment on above: Result Comment: GFR estimated reference range: According to KDOQI guidelines, <60 ml/min/1.73m2 is sufficient to diagnose a patient with chronic kidney disease. Performed By: #### C OVID-19 MARS, SOFIANEG #### [address] Estimated GFR (Non- Am 45 [facility] Comment on above: Performed By: #### C OVID-19 MARS, SOFIANEG #### [address] Glucose [Mass/Vol] 90 mg/dL Normal 70-100 [facility] Comment on above: Result Comment: [place] om Glucose Reference Range is dependent on time and content of last meal. Glucose of more than 200 mg/dL in a nonstressed, ambulatory subject supports the diagnosis of Diabetes Mellitus. ADA recommended reference range Performed By: #### C OVID-19 MARS, SOFIANEG #### [place] [address] [place] Potassium [Moles/Vol] 3.4 mmol/L Low 3.5-5.1 [facility] Comment on above: Performed By: #### C OVID-19 MARS, SOFIANEG #### [facility] [address] [place] [address] [place] Sodium [Moles/Vol] 134 mmol/L Low 136-146 [facility] Comment on above: Performed By: #### C OVID-19 MARS, SOFIANEG #### [place] [address] [place] Urea nitrogen [Mass/Vol] 24 mg/dL High 9-23 [facility] Comment on above: Performed By: #### C OVID-19 MARS, SOFIANEG #### [facility] [address] Complete Blood Count Auto Di ffon 01-11-2022 Basophils (Bld) [#/Vol] 0.1 10*3/uL Normal 0.0-0.2 [facility] Comment on above: Result Comment: PERF ORMED BY: [place] [address] PATHOLOGIST SHEET METAL DU[employer] INSTALLER JAYY SANTA M.D. Performed By: #### C BC, BMP #### [facility] [address] Basophils/100 WBC (Bld) 0.7 % Normal . [facility] Comment on above: Performed By: #### C BC, BMP #### [facility] [address] Eosinophils (Bld) [#/Vol] 0.2 10*3/uL Normal 0.0-0.45 [facility] Comment on above: Performed By: #### C BC, BMP #### [facility] [address] Eosinophils/100 WBC (Bld) 2.2 % Normal . [facility] Comment on above: Performed By: #### C BC, BMP #### [facility] [address] Erythrocyte distribution width (RBC) [Ratio] 15.5 % High 12.0-14.8 [facility] Comment on above: Performed By: #### C BC, BMP #### [facility] [address] Hematocrit (Bld) [Volume fraction] 38.1 % Low 38.8-50.0 [facility] Comment on above: Performed By: #### C BC, BMP #### [facility] [address] Hemoglobin (Bld) [Mass/Vol] 12.7 g/dL Low 13.0-17.0 [facility] Comment on above: Performed By: #### C BC, BMP #### [facility] [address] [place] [address] [place] Lymphocytes (Bld) [#/Vol] 1.2 10*3/uL Normal 1.00-4.8 [facility] Comment on above: Performed By: #### C BC, BMP #### [facility] [address] [place] [address] [place] Lymphocytes/100 WBC (Bld) 13.7 % Normal . [facility] Comment on above: Performed By: #### C BC, BMP #### [facility] [address] MCH (RBC) [Entitic mass] 33.4 pg Normal 27.5-35.2 [facility] Comment on above: Performed By: #### C BC, BMP #### [address] MCV (RBC) [Entitic vol] 100.6 fL Normal 83.5-101 [facility] Comment on above: Performed By: #### C BC, BMP #### [address] Mean Corpuscular HGB Conc 33.3 g/dL Normal 32.5-35.6 [facility] Comment on above: Performed By: #### C BC, BMP #### [place] [address] [place] Monocytes (Bld) [#/Vol] 0.8 10*3/uL Normal 0.0-0.8 [facility] Comment on above: Performed By: #### C BC, BMP #### [place] [address] [place] Monocytes/100 WBC (Bld) 9.6 % Normal . [facility] Comment on above: Performed By: #### C BC, BMP #### [address] Neutrophils (Bld) [#/Vol] 6.3 10*3/uL Normal 1.8-7.7 [facility] Comment on above: Performed By: #### C BC, BMP #### [facility] [address] [place] [address] [place] Neutrophils/100 WBC (Bld) 73.8 % Normal . [facility] Comment on above: Performed By: #### C BC, BMP #### [facility] [address] [place] [address] [place] Nucleated RBC/100 WBC (Bld) [Ratio] 0.0 % Normal 0-0.5 [facility] Comment on above: Performed By: #### C BC, BMP #### [facility] [address] [place] [address] Platelet mean volume (Bld) [Entitic vol] 8.8 fL Normal 6.6-10.1 [facility] Comment on above: Performed By: #### C BC, BMP #### [address] Platelets (Bld) [#/Vol] 177 10*3/uL Normal 150-450 [facility] Comment on above: Performed By: #### C KARTIK, BMP #### [place] [address] [place] RBC (Bld) [#/Vol] 3.78 10*6/uL Low 3.90-5.60 [facility] Comment on above: Performed By: #### C BC, BMP #### [place] [address] [place] WBC (Bld) [#/Vol] 8.5 10*3/uL Normal 4.5-11.0 [facility] Comment on above: Performed By: #### C BC, BMP #### [address] ECH echo transthoracicon ECH echo transthoracic [facility] [address] [place] [address] Echocardiogram Signed Patient: Irineo Wallis Jr MR#: [id number] : 1940 Acct:[id number] Age/Sex: 81 / M ADM Date: 01/09/22 Loc: Room: [address] [place] [address] Type: DIS IN Attending Dr: Raji Ennis MD Ordering Provider: Dharmesh Zavala DO Date of Service: 01/10/2208/26/499 ECH/ECH echo transthoracic: dyspnea, pleural effusion Copies to: [...] LV V1 VTI: 16.1 cm Transcribed By: SCBart Performed At: 01/11/22 075 Signed By: Robert Thorne MD 01/11/22 0928 Normal [facility] IgA [Mass/volume] in Serum o r PlasmaOrdered By: Vikas Mane on 01-11-2022 IgA [Mass/Vol] 171 mg/dL 61-437 [facility] IgG [Mass/volume] in Serum o r PlasmaOrdered By: Vikas Mane on 01-11-2022 IgG [Mass/Vol] 816 mg/dL 603-1613 [facility] IgM [Mass/volume] in Serum o r PlasmaOrdered By: Vikas Mane on 01-11-2022 IgM [Mass/Vol] 105 mg/dL 15-143 [facility] Comment on above: Performed at: [address] [id number] Director: Patrick Ortiz PhD, Phone: [phone] Immunofixation,Serumon 01-11 Immunofixation, Serum Normal . [facility] Comment on above: Result Comment: No m onoclonality detected. Performed By: #### B MP, CBC #### [facility] [address] Immunoglobulin A, Serum 171 mg/dL Normal 61-437 [facility] Comment on above: Performed By: #### B MP, CBC #### [facility] [address] Immunoglobulin G 816 mg/dL Normal 603-1613 [facility] Comment on above: Performed By: #### B MP, CBC #### [facility] [address] Immunoglobulin M, Serum 105 mg/dL Normal 15-143 [facility] Comment on above: Result Comment: Perf ormed at: [facility] [address] [place] [address] [employer]: Patrick Ortiz PhD, Phone: [phone] Performed By: #### B MP, CBC #### [address] No Panel InformationOrdered By: Vikas Mane on 01-11-2022 Protein Electrophoresis M-Franky Not observed g/dL Not Observed [facility] Protein Electrophoresis Note See comment . [facility] Comment on above: Protein electrophore sis scan will follow via computer,mail, or internet sales consultant delivery.Performed at: [place] [address]Lab Director: Patrick Ortiz PhD, Phone: [phone] Serum Immunofixation See comment . [facility] Comment on above: No monoclonality det ected. Protein Electrophoresis, Ser umon 01-11-2022 Albumin [Mass/Vol] 2.9 g/dL Normal 2.9-4.4 [facility] Comment on above: Performed By: #### B MP, CBC #### [address] Albumin/Globulin [Mass ratio] 1.2 {ratio} Normal 0.7-1.7 [facility] Comment on above: Performed By: #### B MP, CBC #### [facility] [address] [place] [address] Pkmzc-7-Cmycbtyk 0.4 g/dL Normal 0.0-0.4 [facility] Comment on above: Performed By: #### B MP, CBC #### [address] Rccwl-1-Txaltgrh 0.7 g/dL Normal 0.4-1.0 [facility] Comment on above: Performed By: #### B MP, CBC #### [address] Beta Globulin 0.6 g/dL Low 0.7-1.3 [facility] Comment on above: Performed By: #### B MP, CBC #### [address] Gamma Globulin 0.8 g/dL Normal 0.4-1.8 [facility] Comment on above: Performed By: #### B MP, CBC #### [address] Globulin (S) [Mass/Vol] 2.4 g/dL Normal 2.2-3.9 [facility] Comment on above: Performed By: #### B MP, CBC #### [address] M-Franky Not Observed Normal Not Observed [facility] Comment on above: Performed By: #### B MP, CBC #### [address] Protein [Mass/Vol] 5.3 g/dL Low 6.0-8.5 [facility] Comment on above: Performed By: #### B MP, CBC #### [address] SPE-Note Normal . [facility] Comment on above: Result Comment: Prot ein electrophoresis scan will follow via computer, mail, or internet sales consultant delivery. Performed at: - [facility] [id number] [employer]: Patrick Ortiz PhD, Phone: [phone] PERFORMED BY: [place] [address] PATHOLOGIST SHEET METAL DUCT INSTALLER JAYY SANTA M.D. Performed By: #### B MP, CBC #### [address] Protein [Mass/volume] in Ser um or PlasmaOrdered By: Vikas Mane on 01-11-2022 Protein [Mass/Vol] 5.3 g/dL 6.0-8.5 [facility] Serum globulin measurement ( mass/volume)Ordered By: Vikas Mane on 01-11-2022 Globulin (S) [Mass/Vol] 2.4 g/dL 2.2-3.9 [facility] Serum or plasma albumin/glob ulin mass ratioOrdered By: Vikas Mane on 01-11-2022 Albumin/Globulin [Mass ratio] 1.2 {ratio} 0.7-1.7 [facility] Serum or plasma alpha 1 glob ulin measurement by electrophoresis (mass/volume)Ordered By: Vikas Mane on 01-11-2022 Alpha 1 globulin Elph [Mass/Vol] 0.4 g/dL 0.0-0.4 [facility] Serum or plasma alpha 2 glob ulin measurement by electrophoresis (mass/volume)Ordered By: Vikas Mane 01-11-2022 Alpha 2 globulin Elph [Mass/Vol] 0.7 g/dL 0.4-1.0 [facility] Serum or plasma beta globuli n measurement by electrophoresis (mass/volume)Ordered By: Vikas Mane on 01-11-2022 Beta globulin Elph [Mass/Vol] 0.6 g/dL 0.7-1.3 [facility] Serum or plasma gamma globul in measurement by electrophoresis (mass/volume)Ordered By: Vikas Mane on 01-11-2022 Gamma globulin Elph [Mass/Vol] 0.8 g/dL 0.4-1.8 [facility] US carotid doppler BIon US carotid doppler BI [facility] [address] [place] [address] Ultrasound Report Signed Patient: JadynroelIrineo Jr MR#: [id number] : 1940 Acct:[id number] Age/Sex: 81 / M ADM Date: 01/09/22 Loc: Room: [address] [place] [address] Type: ADM IN Attending Dr: Dharmesh Zavala [...] Deo Jamison MD01/11/2022 10:29 AM Dictation Location: [place] [address] Tech: Criss Valenciasuresh Transcribed By: NOLVIA 01/11/22 1029 Dictated By: Deo Jamison MD 01/11/22 1029 Signed By: 01/11/22 1029 Normal [facility] A1C with Estimated Average Reece malloy 01-10-2022 Glucose [Mass/Vol] 114 mg/dL Normal [facility] Comment on above: Result Comment: PERF ORMED BY: [place] [address] PATHOLOGIST SHEET METAL DUCT INSTALLER JAYY SANTA M.D. Performed By: #### C BC, BMP #### [address] HbA1c (Bld) [Mass fraction] 5.6 % Normal 4.3-5.6 [facility] Comment on above: Result Comment: Incr eased risk for diabetes: 5.7 - 6.4 diabetes: >6.4 glycemic control for adults with diabetes: <7.0 Performed By: #### C BC, BMP #### [facility] [address] [place], [place] [id number] [facility] B-Type Natriuretic Peptideon 01-10-2022 Natriuretic peptide B (Bld) [Mass/Vol] 679.0 pg/mL High 5-100 [facility] Comment on above: Result Comment: PERF ORMED BY: [place] [address] PATHOLOGIST SHEET METAL DUCT INSTALLER JAYY SANTA M.D. Performed By: #### B MP, CBC #### [facility] [address] [place], [place] [id number] [facility] Basic Metabolic Panelon 11-0 Anion gap [Moles/Vol] 12.1 mmol/L Normal 6.0-15.0 [facility] Comment on above: Performed By: #### C BC, BMP #### [facility] [address] [place] [address] [place] Calcium [Mass/Vol] 8.6 mg/dL Normal 8.2-10.2 [facility] Comment on above: Performed By: #### C BC, BMP #### [facility] [address] [place] [address] [place] Chloride [Moles/Vol] 99 mmol/L Normal 95-114 [facility] Comment on above: Performed By: #### C BC, BMP #### [facility] [address] [place] [address] [place] CO2 [Moles/Vol] 26.7 mmol/L Normal 22.0-30.0 [facility] Comment on above: Performed By: #### C BC, BMP #### [facility] [address] [place] [address] [place] Creatinine [Mass/Vol] 1.60 mg/dL High 0.64-1.27 [facility] Comment on above: Performed By: #### C BC, BMP #### [facility] [address] [place] [address] [place] Creatinine Clr Calc Pharmacy 39.46 [facility] Comment on above: Performed By: #### C BC, BMP #### [facility] [address] [place] [id number] [facility] Estimated GFR ( Amarilis 51 [facility] Comment on above: Result Comment: GFR estimated reference range: According to KDOQI guidelines, <60 ml/min/1.73m2 is sufficient to diagnose a patient with chronic kidney disease. Performed By: #### C BC, BMP #### [facility] [address] [place] [address] [place] Estimated GFR (Non- Am 42 [facility] Comment on above: Performed By: #### C BC, BMP #### [facility] [address] [place] [id number] [place] Glucose [Mass/Vol] 97 mg/dL Normal 70-100 [facility] Comment on above: Result Comment: [place] Glucose Reference Range is dependent on time and content of last meal. Glucose of more than 200 mg/dL in a nonstressed, ambulatory subject supports the diagnosis of Diabetes Mellitus. ADA recommended reference range Performed By: #### C BC, BMP #### [address] Potassium [Moles/Vol] 3.8 mmol/L Normal 3.5-5.1 [facility] Comment on above: Performed By: #### C BC, BMP #### [address] Sodium [Moles/Vol] 134 mmol/L Low 136-146 [facility] Comment on above: Performed By: #### C BC, BMP #### [address] Urea nitrogen [Mass/Vol] 23 mg/dL Normal 9-23 [facility] Comment on above: Performed By: #### C BC, BMP #### [address] Complete Blood Count Auto Di ffon 01-10-2022 Basophils (Bld) [#/Vol] 0.1 10*3/uL Normal 0.0-0.2 [facility] Comment on above: Result Comment: PERF ORMED BY: [place] [address] PATHOLOGIST SHEET METAL DUCT INSTALLER JAYY SANTA M.D. Performed By: #### C BC, BMP #### [address] Basophils/100 WBC (Bld) 1.0 % Normal . [facility] Comment on above: Performed By: #### C BC, BMP #### [place] [address] [place] Eosinophils (Bld) [#/Vol] 0.0 10*3/uL Normal 0.0-0.45 [facility] Comment on above: Performed By: #### C BC, BMP #### [place] [address] [place] Eosinophils/100 WBC (Bld) 0.3 % Normal . [facility] Comment on above: Performed By: #### C BC, BMP #### [address] Erythrocyte distribution width (RBC) [Ratio] 15.8 % High 12.0-14.8 [facility] Comment on above: Performed By: #### C BC, BMP #### [address] Hematocrit (Bld) [Volume fraction] 37.7 % Low 38.8-50.0 [facility] Comment on above: Performed By: #### C BC, BMP #### [address] Hemoglobin (Bld) [Mass/Vol] 12.5 g/dL Low 13.0-17.0 [facility] Comment on above: Performed By: #### C BC, BMP #### [address] Lymphocytes (Bld) [#/Vol] 1.0 10*3/uL Normal 1.00-4.8 [facility] Comment on above: Performed By: #### C BC, BMP #### [address] Lymphocytes/100 WBC (Bld) 10.5 % Normal . [facility] Comment on above: Performed By: #### C BC, BMP #### [address] MCH (RBC) [Entitic mass] 33.6 pg Normal 27.5-35.2 [facility] Comment on above: Performed By: #### C BC, BMP #### [address] MCV (RBC) [Entitic vol] 101.5 fL High 83.5-101 [facility] Comment on above: Performed By: #### C BC, BMP #### [address] Mean Corpuscular HGB Conc 33.1 g/dL Normal 32.5-35.6 [facility] Comment on above: Performed By: #### C BC, BMP #### [facility] [address] [place] [address] [place] Monocytes (Bld) [#/Vol] 1.0 10*3/uL High 0.0-0.8 [facility] Comment on above: Performed By: #### C BC, BMP #### [facility] [address] [place] [address] [place] Monocytes/100 WBC (Bld) 10.7 % Normal . [facility] Comment on above: Performed By: #### C BC, BMP #### [facility] [address] [place] [address] [place] Neutrophils (Bld) [#/Vol] 7.3 10*3/uL Normal 1.8-7.7 [facility] Comment on above: Performed By: #### C BC, BMP #### [facility] [address] [place] [address] [place] Neutrophils/100 WBC (Bld) 77.5 % Normal . [facility] Comment on above: Performed By: #### C BC, BMP #### [facility] [address] [place] [address] [place] Nucleated RBC/100 WBC (Bld) [Ratio] 0.0 % Normal 0-0.5 [facility] Comment on above: Performed By: #### C BC, BMP #### [facility] [address] [place] [address] [place] Platelet mean volume (Bld) [Entitic vol] 8.6 fL Normal 6.6-10.1 [facility] Comment on above: Performed By: #### C BC, BMP #### [facility] [address] [place] [address] [place] Platelets (Bld) [#/Vol] 167 10*3/uL Normal 150-450 [facility] Comment on above: Performed By: #### C BC, BMP #### [facility] [address] [place] [address] [place] RBC (Bld) [#/Vol] 3.71 10*6/uL Low 3.90-5.60 [facility] Comment on above: Performed By: #### C BC, BMP #### [facility] [address] WBC (Bld) [#/Vol] 9.5 10*3/uL Normal 4.5-11.0 [facility] Comment on above: Performed By: #### C BC, BMP #### [facility] [address] ECG 12 lead ECGon 01-10-2022 ECG 12 lead ECG [facility] [place] [address] [place] [address] Electrocardiograph Report Signed Patient: Irineo Wallis Jr MR#: [id number] : 1940 Acct:[id number] Age/Sex: 81 / M ADM Date: 01/09/22 Loc: Room: [address] [place] [address] Type: DIS IN Attending Dr: Raji Ennis [...] no longer present Confirmed by [facility]JENDRA TIDWELL [facility] ([id number] on 01/10/2022 10:31:45 AM Referred By: Electronically Signed By:MARV DREW MD FAC Transcribed By: MUS Signed By Marv Drew MD, FACC 01/10/22 1031 [facility] Folate [Mass/volume] in Seru m or PlasmaOrdered By: Dharmesh Zavala on 01-10-2022 Folate [Mass/Vol] 8.8 ng/mL >5.9 [facility] Comment on above: Folate reference ran ge: >5.9 ng/mlThe WHO technical consultation on folate and vitamin [id number] has determined that folate concentrations lessthan 4 ng/ml are considered deficient. Glucose mean value [Mass/vol ume] in Blood Estimated from glycated hemoglobinOrdered By: Dharmesh Zavala on 01-10-2022 Average glucose Estimated from glycated hemoglobin (Bld) [Mass/Vol] 114 mg/dL [facility] Hemoglobin A1c percentageOrd ered By: Dharmesh Zavala on 01-10-2022 HbA1c (Bld) [Mass fraction] 5.6 % 4.3-5.6 [facility] Comment on above: Increased risk for d iabetes: 5.7 - 6.4diabetes: >6.4glycemic control for adults with diabetes: <7.0 Ironon 01-10-2022 Iron [Mass/Vol] 13 ug/dL Low 40-160 [facility] Comment on above: Performed By: #### C BC, BMP #### [facility] [address] Iron [Mass/volume] in Serum or PlasmaOrdered By: Dhamresh Zavala on 01-10-2022 Iron [Mass/Vol] 13 ug/dL 40-160 [facility] Laboratory - Chemistry and C hemistry - challengeOrdered By: Dharmesh Zavala on 01-10-2022 Cobalamin (Vitamin B12) [Mass/Vol] 458 pg/mL 180-914 [facility] Magnesium [Mass/Vol] 1.9 mg/dL 1.6-2.6 [facility] Natriuretic peptide B (Bld) [Mass/Vol] 679.0 pg/mL 5-100 [facility] Magnesiumon 01-10-2022 Magnesium [Mass/Vol] 1.9 mg/dL Normal 1.6-2.6 [facility] Comment on above: Performed By: #### C BC, BMP #### [facility] [address] [place] [address] [place] TSH DL <= 0.005 mIU/L QnOrde red By: Dharmesh Zavala on 01-10-2022 TSH Qn 3.99 m[IU]/L 0.45-5.33 [facility] Thyroid Stimulating Hormoneo n 01-10-2022 TSH Qn 3.99 m[IU]/L Normal 0.45-5.33 [facility] Comment on above: Result Comment: PERF ORMED BY: [place] [address] PATHOLOGIST SHEET METAL DUCT INSTALLER JAYY SANTA M.D. Performed By: #### C BC, BMP #### [address] [address] [facility] Troponin I High Sensitivityo n 01-10-2022 Troponin I High Sensitivity 110 pg/mL Off scale high 0-20 [facility] Comment on above: Result Comment: Resu lts called at 0808 on 01/10/22 PERFORMED BY: [place] [address] PATHOLOGIST SHEET METAL DUCT INSTALLER JAYY SANTA M.D. Performed By: #### C BC, BMP #### [place] [id number] [facility] Troponin I.cardiac [Mass/vol ume] in Serum or Plasma by High sensitivity methodOrdered By: Dharmesh Zavala on 01-10-2022 Troponin I.cardiac High sensitivity method [Mass/Vol] 110 pg/mL 0-20 [facility] Comment on above: Results calledat 080 8 on 01/10/22 US renal BIon 01-10-2022 US renal BI [facility] Main [address] [address] Ultrasound Report Signed Patient: Irineo Wallis MR#: [id number] : 1940 Acct:[id number] Age/Sex: 81 / M ADM Date: 01/09/22 Loc: Room: [address] [place] [address] Type: ADM IN Attending Dr: Dharmesh Zavala [...] Esa Cardoso M.D.01/10/2022 9:07 AM Dictation Location: [place] [address] Tech: Criss Avery Transcribed By: NOLVIA 01/10/22906 Dictated By: Esa Cardoso DO 01/10/22905 Signed By: 01/10/22906 Normal [facility] Vit. B12/Folate Profileon Cobalamin (Vitamin B12) [Mass/Vol] 458 pg/mL Normal 180-914 [facility] Comment on above: Performed By: #### C KARTIK, BMP #### [facility] [address] [place] [address] Folate 8.8 ng/mL Normal >5.9 [facility] Comment on above: Result Comment: Suzette te reference range: >5.9 ng/ml The WHO technical consultation on folate and vitamin b12 deficiencies has determined that folate concentrations less than 4 ng/ml are considered deficient. Performed By: #### C BC, BMP #### [facility] [address] [place] [address] Activated partial thrombopla stin time (aPTT) in platelet poor plasma by coagulation aOrdered By: Victor Manuel Paiz on 01-09-2022 aPTT Coag (PPP) [Time] 39.1 s 25.1-36.5 [facility] Automated erythrocytes count in urine sediment (number/area)Ordered By: Victor Manuel Paiz on 01-09-2022 RBC Auto (Urine sed) [#/Area] 0-1 [HPF] 0-4 [facility] Automated leukocytes count i n urine sediment (number/area)Ordered By: Victor Manuel Paiz on 01-09-2022 WBC Auto (Urine sed) [#/Area] 5-9 [HPF] 0-4 [facility] B-Type Natriuretic Peptideon 01-09-2022 Natriuretic peptide B (Bld) [Mass/Vol] 1810.0 pg/mL High 5-100 [facility] Comment on above: Result Comment: PERF ORMED BY: [place] [address] PATHOLOGIST SHEET METAL DUCT INSTALLER JAYY SANTA M.D. Performed By: #### B MP, CBC #### [facility] [address] Basic Metabolic Panelon 110 Anion gap [Moles/Vol] 14.9 mmol/L Normal 6.0-15.0 [facility] Comment on above: Performed By: #### B MP, CBC #### [facility] [address] Calcium [Mass/Vol] 9.2 mg/dL Normal 8.2-10.2 [facility] Comment on above: Performed By: #### B MP, CBC #### [facility] [address] [place] [address] [place] Chloride [Moles/Vol] 100 mmol/L Normal 95-114 [facility] Comment on above: Performed By: #### B MP, CBC #### [facility] [address] CO2 [Moles/Vol] 25.2 mmol/L Normal 22.0-30.0 [facility] Comment on above: Performed By: #### B MP, CBC #### [facility] [address] [place] [address] [place] Creatinine [Mass/Vol] 1.62 mg/dL High 0.64-1.27 [facility] Comment on above: Performed By: #### B MP, CBC #### [facility] [address] [place] [address] [place] Creatinine Clr Calc Pharmacy 39.44 Normal [facility] Comment on above: Result Comment: PERF ORMED BY: [place] [address] PATHOLOGIST SHEET METAL DUCT INSTALLER JAYY SANTA M.D. Performed By: #### B MP, CBC #### [address] Estimated GFR ( Amarilis 50 [facility] Comment on above: Result Comment: GFR estimated reference range: According to KDOQI guidelines, <60 ml/min/1.73m2 is sufficient to diagnose a patient with chronic kidney disease. Performed By: #### B MP, CBC #### [address] Estimated GFR (Non- Am 41 [facility] Comment on above: Performed By: #### B MP, CBC #### [address] Glucose [Mass/Vol] 99 mg/dL Normal 70-100 [facility] Comment on above: Result Comment: [place] Glucose Reference Range is dependent on time and content of last meal. Glucose of more than 200 mg/dL in a nonstressed, ambulatory subject supports the diagnosis of Diabetes Mellitus. ADA recommended reference range Performed By: #### B MP, CBC #### [address] Potassium [Moles/Vol] 4.1 mmol/L Normal 3.5-5.1 [facility] Comment on above: Performed By: #### B MP, CBC #### [place] [address] [place] Sodium [Moles/Vol] 136 mmol/L Normal 136-146 [facility] Comment on above: Performed By: #### B MP, CBC #### [address] Urea nitrogen [Mass/Vol] 21 mg/dL Normal 9-23 [facility] Comment on above: Performed By: #### B MP, CBC #### [place] [address] [place] Basophils Auto (Bld) [#/Vol] Ordered By: Victor Manuel Paiz on 01-09-2022 Basophils (Bld) [#/Vol] 0.1 10*3/uL 0.0-0.2 [facility] Basophils/100 WBC Auto (Bld) Ordered By: Victor Manuel Paiz on 01-09-2022 Basophils/100 WBC (Bld) 1.0 % . [facility] Bilirubin Test strip Ql (U)O rdered By: Victor Manuel Paiz on 01-09-2022 Bilirubin Ql (U) Negative Negative [facility] COVID-19 Antigenon COVID-19 Antigen Healthcare Worker?: N Reference Range: [...] developed and its performance characteristic determined by [employer] and validated at [facility]. This test has not been FDA [...] for SARS Antigen by MADHAVI PERFORMED BY: [facility] [address] [place] [address] PATHOLOGIST SHEET METAL DUCT INSTALLER JAYY SANTA M.D. Normal [facility] Comment on above: Performed By: #### C OVID-19 MARS, SOFIANEG #### [facility] [address] [place] [address] COVID-19 FRMCon 01-09-2022 SARS-CoV-2 (COVID-19) RNA SMITHA+probe Ql (Unsp spec) Negative Normal Negative [facility] Comment on above: Order Comment: Healt hcare Worker?: N Result Comment: Testing for SARS-CoV-2 by RT-PCR This test was developed and its performance characteristics determined by [employer]) and validated at the [facility]. This test has not been FDA [...] is terminated or revoked sooner. PERFORMED BY: [place] [address] PATHOLOGIST SHEET METAL DUCT INSTALLER JAYY SANTA M.D. Performed By: #### B MP, CBC #### [facility] [address] [place] [address] COVID-19 Positive/NegativeOr dered By: Victor Manuel Paiz on 01-09-2022 SARS-CoV-2 (COVID-19) N gene SMITHA+probe Ql (Resp) Negative Negative [facility] Comment on above: Testing for SARS-CoV -2 by RT-PCRThis test was developed and its performance characteristics determined by [employer] ([employer]) and validated at the [facility]. This test has not been FDA [...] (COVID-19) Ag IA.rapid Ql (Resp) Negative Negative [facility] Comment on above: This is a duplicate [place] SARS Antigen (MADHAVI) result to be used for statistical tracking purpose only. CT cervical spine wo conon 1 03-11-2021 CT cervical spine wo [facility] [place] [address] CT Scan Report Signed Patient: Irineo Wallis Jr MR#: [id number] : 1940 Acct:[id number] Age/Sex: 81 / M ADM Date: 01/09/22 Loc: ER Room: Type: [facility] ER Attending Dr: Copies to: Victor [...] Esa Cardoso M.D.01/09/2022 1:02 PM Dictation Location: [employer] Transcribed By: NOLVIA 01/09/22 1302 Dictated By: Esa Cardoso DO 01/09/22 1300 Signed By: 01/09/22 1302 Normal [facility] CT head/brain wo conon 01-09 CT head/brain wo con [facility] [place] [address] [place] [address] CT Scan Report Signed Patient: Irineo Wallis Jr MR#: [id number] : 1940 Acct:[id number] Age/Sex: 81 / M ADM Date: 01/09/22 Loc: ER Room: Type: [facility] ER Attending Dr: Copies to: Victor [...] Cardoso M.D.01/09/2022 1:00 PM Dictation Location: [facility]12 Transcribed By: NOLVIA 01/09/22 1300 Dictated By: Esa Cardoso DO 01/09/22 1259 Signed By: 01/09/22 [address] [facility] [address] lumbar spine wo conon CT lumbar spine wo con [facility] [place] [address] CT Scan Report Signed Patient: Irineo Wallis Jr MR#: [id number] : 1940 Acct:[id number] Age/Sex: 81 / M ADM Date: 01/09/22 Loc: ER Room: Type: [facility] Attending Dr: Copies to: Victor Manuel Paiz [...] Cardoso M.D.01/09/2022 1:11 PM Dictation Location: [facility]12 Transcribed By: NOLVIA 01/09/22 1311 Dictated By: Esa Cardoso DO 01/09/22 1309 Signed By: 01/09/22 [address] [facility] [address] thoracic spine wo conon 1 03-11-2021 CT thoracic spine wo con [facility] [place] [address] CT Scan Report Signed Patient: Irineo Wallis Jr MR#: [id number] : 1940 Acct:[id number] Age/Sex: 81 / M ADM Date: 01/09/22 Loc: ER Room: Type: [facility] ER Attending Dr: Copies to: Victor [...] Esa Cardoso M.D.01/09/2022 1:06 PM Dictation Location: [place] [address] Transcribed By: [facility] 01/09/22 1306 Dictated By: Esa Cardoso DO 01/09/22 1304 Signed By: 01/09/22 1306 Normal [facility] Color Auto (U)Ordered By: Brigitte Paiz on 01-09-2022 Color (U) Yellow Yellow [facility] Complete Blood Count Auto Di ffon 01-09-2022 Basophils (Bld) [#/Vol] 0.1 10*3/uL Normal 0.0-0.2 [facility] Comment on above: Result Comment: PERF ORMED BY: [facility] [address] [place] [address] PATHOLOGIST SHEET METAL DUCT INSTALLER JAYY SANTA M.D. Performed By: #### B MP, CBC #### [facility] [address] Basophils/100 WBC (Bld) 1.0 % Normal . [facility] Comment on above: Performed By: #### B MP, CBC #### [address] Eosinophils (Bld) [#/Vol] 0.0 10*3/uL Normal 0.0-0.45 [facility] Comment on above: Performed By: #### B MP, CBC #### [address] Eosinophils/100 WBC (Bld) 0.1 % Normal . [facility] Comment on above: Performed By: #### B MP, CBC #### [address] Erythrocyte distribution width (RBC) [Ratio] 15.9 % High 12.0-14.8 [facility] Comment on above: Performed By: #### B MP, CBC #### [address] Hematocrit (Bld) [Volume fraction] 36.5 % Low 38.8-50.0 [facility] Comment on above: Performed By: #### B MP, CBC #### [address] Hemoglobin (Bld) [Mass/Vol] 12.1 g/dL Low 13.0-17.0 [facility] Comment on above: Performed By: #### B MP, CBC #### [address] Lymphocytes (Bld) [#/Vol] 0.8 10*3/uL Low 1.00-4.8 [facility] Comment on above: Performed By: #### B MP, CBC #### [address] Lymphocytes/100 WBC (Bld) 13.5 % Normal . [facility] Comment on above: Performed By: #### B MP, CBC #### [address] MCH (RBC) [Entitic mass] 33.7 pg Normal 27.5-35.2 [facility] Comment on above: Performed By: #### B MP, CBC #### [address] MCV (RBC) [Entitic vol] 101.5 fL High 83.5-101 [facility] Comment on above: Performed By: #### B MP, CBC #### [address] Mean Corpuscular HGB Conc 33.2 g/dL Normal 32.5-35.6 [facility] Comment on above: Performed By: #### B MP, CBC #### [address] Monocytes (Bld) [#/Vol] 0.9 10*3/uL High 0.0-0.8 [facility] Comment on above: Performed By: #### B MP, CBC #### [address] Monocytes/100 WBC (Bld) 14.2 % Normal . [facility] Comment on above: Performed By: #### B MP, CBC #### [address] Neutrophils (Bld) [#/Vol] 4.3 10*3/uL Normal 1.8-7.7 [facility] Comment on above: Performed By: #### B MP, CBC #### [address] Neutrophils/100 WBC (Bld) 71.2 % Normal . [facility] Comment on above: Performed By: #### B MP, CBC #### [address] Nucleated RBC/100 WBC (Bld) [Ratio] 0.1 % Normal 0-0.5 [facility] Comment on above: Performed By: #### B MP, CBC #### [address] Platelet mean volume (Bld) [Entitic vol] 8.3 fL Normal 6.6-10.1 [facility] Comment on above: Performed By: #### B MP, CBC #### [address] Platelets (Bld) [#/Vol] 162 10*3/uL Normal 150-450 [facility] Comment on above: Performed By: #### B MP, CBC #### [address] RBC (Bld) [#/Vol] 3.59 10*6/uL Low 3.90-5.60 [facility] Comment on above: Performed By: #### B MP, CBC #### [address] WBC (Bld) [#/Vol] 6.0 10*3/uL Normal 4.5-11.0 [facility] Comment on above: Performed By: #### B MP, CBC #### [address] Creatine Kinaseon 01-09-2022 CK [Catalytic activity/Vol] 231 U/L Normal 22-269 [facility] Comment on above: Performed By: #### B MP, CBC #### [address] Creatine kinase [Enzymatic a ctivity/volume] in Serum or PlasmaOrdered By: Victor Manuel Paiz on 01-09-2022 CK [Catalytic activity/Vol] 231 U/L 22269 [facility] Creatinine Kinase MBon 01-09 CK.MB [Mass/Vol] 5.4 ng/mL Normal 0.6-6.3 [facility] Comment on above: Performed By: #### B MP, CBC #### [address] CKMB Relative Index 2.3 % Normal 0.00-2.50 [facility] Comment on above: Performed By: #### B MP, CBC #### [facility] [address] [place] [address] [place] Creatinine and Glomerular fi ltration rate.predicted panel (S/P/Bld)Ordered By: Victor Manuel Paiz on 01-09-2022 Creatinine [Mass/Vol] 1.62 mg/dL 0.64-1.27 [facility] Dipstick and Microscopicon 1 03-11-2021 Appearance (U) Cloudy Critically abnormal Clear [facility] Comment on above: Order Comment: Name Collection Type:: Clean-Voided Midstream Performed By: #### B MP, CBC #### [facility] [address] [place] [address] [place] Bacteria,Urine None Seen Normal None Seen [facility] Comment on above: Order Comment: Name Collection Type:: Clean-Voided Midstream Performed By: #### B MP, CBC #### [facility] [address] [place] [address] [place] Bilirubin,Urine Negative Normal Negative [facility] Comment on above: Order Comment: Name Collection Type:: Clean-Voided Midstream Performed By: #### B MP, CBC #### [facility] [address] [place] [address] [place] Color (U) Yellow Normal Yellow [facility] Comment on above: Order Comment: Name Collection Type:: Clean-Voided Midstream Performed By: #### B MP, CBC #### [facility] [address] [place] [id number] [place] Glucose Ql (U) Normal Normal Normal [facility] Comment on above: Order Comment: Name Collection Type:: Clean-Voided Midstream Performed By: #### B MP, CBC #### [facility] [address] [place] [id number] [place] Hyaline Casts,Urine 0-8 Normal 0-8 [facility] Comment on above: Order Comment: Name Collection Type:: Clean-Voided Midstream Performed By: #### B MP, CBC #### [facility] [address] [place] [id number] [place] Ketones Ql (U) Trace High Negative [facility] Comment on above: Order Comment: Name Collection Type:: Clean-Voided Midstream Performed By: #### B MP, CBC #### [facility] [address] Leukocyte esterase Test strip Ql (U) 2+ High Negative [facility] Comment on above: Order Comment: Name Collection Type:: Clean-Voided Midstream Performed By: #### B MP, CBC #### [facility] [address] [place] [address] [place] Nitrite,Urine Negative Normal Negative [facility] Comment on above: Order Comment: Name Collection Type:: Clean-Voided Midstream Performed By: #### B MP, CBC #### [address] Occult Blood,Urine Negative Normal Negative [facility] Comment on above: Order Comment: Name Collection Type:: Clean-Voided Midstream Result Comment: PERF ORMED BY: [place] [address] PATHOLOGIST SHEET [employer] INSTALLER JAYY SANTA M.D. Performed By: #### B MP, CBC #### [address] pH (U) 5.5 [pH] Normal 5.0-9.0 [facility] Comment on above: Order Comment: Name Collection Type:: Clean-Voided Midstream Performed By: #### B MP, CBC #### [place] [address] [place] Protein,Urine Trace High Negative [facility] Comment on above: Order Comment: Name Collection Type:: Clean-Voided Midstream Performed By: #### B MP, CBC #### [place] [address] [place] RBC LM.HPF (Urine sed) [#/Area] 0 /[HPF] Normal 0-4 [facility] Comment on above: Order Comment: Name Collection Type:: Clean-Voided Midstream Performed By: #### B MP, CBC #### [place] [address] [place] Specificy [place],Urine 1.018 Normal 1.001-1.03 0 [facility] Comment on above: Order Comment: Name Collection Type:: Clean-Voided Midstream Performed By: #### B MP, CBC #### [address] Squamous Epithelial Cell,Urine 0-1 Normal 0-2 [facility] Comment on above: Order Comment: Name Collection Type:: Clean-Voided Midstream Performed By: #### B MP, CBC #### [address] Urobilinogen,Urine Normal Normal Normal [facility] Comment on above: Order Comment: Name Collection Type:: Clean-Voided Midstream Performed By: #### B MP, CBC #### [address] WBC,Urine 5-9 High 0-4 [facility] Comment on above: Order Comment: Name Collection Type:: Clean-Voided Midstream Performed By: #### B MP, CBC #### [address] Yeast,Urine None Seen Normal None Seen [facility] Comment on above: Order Comment: Name Collection Type:: Clean-Voided Midstream Result Comment: PERF ORMED BY: [place] [address] PATHOLOGIST SHEET [employer] INST[employer]ER JAYY SANTA M.D. Performed By: #### B MP, CBC #### [address] ECG 12 lead ECGon 01-09-2022 ECG 12 lead ECG [facility] [place] [address] Electrocardiograph Report Signed Patient: Irineo Wallis Jr MR#: [id number] : 1940 Acct:[id number] Age/Sex: 81 / M ADM Date: 01/09/22 Loc: Room: [address] [place] [address] Type: DIS IN Attending Dr: Raji Ennis [...] Victor Manuel Paiz MD 07/26 1548 Normal [facility] Eosinophils Auto (Bld) [#/Vo l]Ordered By: Victor Manuel Paiz on 01-09-2022 Eosinophils (Bld) [#/Vol] 0.0 10*3/uL 0.0-0.45 [facility] Eosinophils/100 WBC Auto (Bl d)Ordered By: Victor Manuel Paiz on 01-09-2022 Eosinophils/100 WBC (Bld) 0.1 % . [facility] Erythrocyte distribution wid th Auto (RBC) [Ratio]Ordered By: Victor Manuel Paiz on 01-09-2022 Erythrocyte distribution width (RBC) [Ratio] 15.9 % 12.0-14.8 [facility] Estimated glomerular filtrat ion rate (GFR) non- AmericanOrdered By: Victor Manuel Paiz on 01-09-2022 GFR/1.73 sq M.predicted among non-blacks MDRD (S/P/Bld) [Vol rate/Area] 41 mL/Min [facility] Hematocrit Auto (Bld) [Volum e fraction]Ordered By: Victor Manuel Paiz on 01-09-2022 Hematocrit (Bld) [Volume fraction] 36.5 % 38.8-50.0 [facility] Hemoglobin [Mass/volume] in BloodOrdered By: Victor Manuel Paiz on 01-09-2022 Hemoglobin (Bld) [Mass/Vol] 12.1 g/dL 13.0-17.0 [facility] Ketones Auto test strip (U) [Mass/Vol]Ordered By: Victor Manuel Paiz on 01-09-2022 Ketones (U) [Mass/Vol] Trace Negative [facility] Laboratory - Chemistry and C hemistry - challengeOrdered By: Victor Manuel Paiz on 01-09-2022 Natriuretic peptide B (Bld) [Mass/Vol] 1810.0 pg/mL 5-100 [facility] Laboratory - CoagulationOrde red By: Victor Manuel Paiz on 01-09-2022 PT Coag (PPP) [Time] 28.4 s 9.0-12.9 [facility] Laboratory - Hematology and Cell countsOrdered By: Victor Manuel Paiz on 01-09-2022 Nucleated RBC/100 WBC (Bld) [Ratio] 0.1 % 0-0.5 [facility] Laboratory - UrinalysisOrder ed By: Victor Manuel Paiz on 01-09-2022 Hyaline casts LM Ql (Urine sed) 0-8 [LPF] 0-8 [facility] Leukocytes [#/volume] in Blo od by Automated countOrdered By: Victor Manuel Paiz on 01-09-2022 WBC (Bld) [#/Vol] 6.0 10*3/uL 4.5-11.0 [facility] Lymphocytes Auto (Bld) [#/Vo l]Ordered By: Victor Manuel Paiz on 01-09-2022 Lymphocytes (Bld) [#/Vol] 0.8 10*3/uL 1.00-4.8 [facility] Lymphocytes/100 WBC Auto (Bl d)Ordered By: Victor Manuel Paiz on 01-09-2022 Lymphocytes/100 WBC (Bld) 13.5 % . [facility] MCH Auto (RBC) [Entitic mass ]Ordered By: Victor Manuel Paiz on 01-09-2022 MCH (RBC) [Entitic mass] 33.7 pg 27.5-35.2 [facility] MCHC Auto (RBC) [Mass/Vol]Or dered By: Victor Manuel Paiz on 01-09-2022 MCHC (RBC) [Mass/Vol] 33.2 g/dL 32.5-35.6 [facility] MCV Auto (RBC) [Entitic vol] Ordered By: Victor Manuel Paiz on 01-09-2022 MCV (RBC) [Entitic vol] 101.5 fL 83.5-101 [facility] Monocytes Auto (Bld) [#/Vol] Ordered By: Victor Manuel Paiz on 01-09-2022 Monocytes (Bld) [#/Vol] 0.9 10*3/uL 0.0-0.8 [facility] Monocytes/100 WBC Auto (Bld) Ordered By: Victor Manuel Paiz on 01-09-2022 Monocytes/100 WBC (Bld) 14.2 % . [facility] Neutrophils Auto (Bld) [#/Vo l]Ordered By: Victor Manuel Paiz on 01-09-2022 Neutrophils (Bld) [#/Vol] 4.3 10*3/uL 1.8-7.7 [facility] Neutrophils/100 WBC Auto (Bl d)Ordered By: Victor Manuel Paiz on 01-09-2022 Neutrophils/100 WBC (Bld) 71.2 % . [facility] Nitrite Test strip Ql (U)Ord ered By: Victor Manuel Paiz on 01-09-2022 Nitrite Ql (U) Negative Negative [facility] No Panel InformationOrdered By: Victor Manuel Paiz on 01-09-2022 SARS Antigen (LFIA) [facility] Estimated GFR () 50 mL/Min [facility] Comment on above: GFR estimated refere nce range: According to KDOQI guidelines, <60 ml/min/1.73m2 is sufficient to diagnose a patient with chronic kidney disease. Pharmacy Creatinine Clearance (Chem 39.44 [facility] SARS Antigen (LFIA) [facility] Partial Thromboplastin Timeo n 01-09-2022 aPTT Coag (Bld) [Time] 39.1 s High 25.1-36.5 [facility] Comment on above: Result Comment: PERF ORMED BY: [place] [address] PATHOLOGIST SHEET [employer] INST[employer]ER JAYY SANTA M.D. Performed By: #### B MP, CBC #### [address] Platelet mean volume Auto (B ld) [Entitic vol]Ordered By: Victor Manuel Paiz on 01-09-2022 Platelet mean volume (Bld) [Entitic vol] 8.3 fL 6.6-10.1 [facility] Platelet poor plasma interna tional normalized ratio (INR) by coagulation assay (relatOrdered By: Victor Manuel Paiz on 01-09-2022 INR Coag (PPP) [Relative time] 2.5 {INR} [facility] Comment on above: INR Therapeutic Rang [...] 01-09-2022 Platelets (Bld) [#/Vol] 162 10*3/uL 150-450 [facility] Protein Auto test strip (U) [Mass/Vol]Ordered By: Victor Manuel Paiz on 01-09-2022 Protein (U) [Mass/Vol] Trace mg/dL Negative [facility] Prothrombin Time INRon 01-09 INR Coag (PPP) [Relative time] 2.5 {INR} Normal [facility] Comment on above: Result Comment: INR [...] 3 - 4.5 Performed By: #### B MARY CBC #### [facility] [address] [place] [address] PT Coag (PPP) [Time] 28.4 s High 9.0-12.9 [facility] Comment on above: Performed By: #### B MARY CBC #### [facility] [address] [place] [address] RBC Auto (Bld) [#/Vol]Ordere d By: Victor Manuel Paiz on 01-09-2022 RBC (Bld) [#/Vol] 3.59 10*6/uL 3.90-5.60 [facility] Serum or plasma anion gap de terminationOrdered By: Victor Manuel Paiz on 01-09-2022 Anion gap [Moles/Vol] 14.9 mmol/L 6.0-15.0 [facility] Serum or plasma calcium alistair urement (mass/volume)Ordered By: Victor Manuel Paiz on 01-09-2022 Calcium [Mass/Vol] 9.2 mg/dL 8.2-10.2 [facility] Serum or plasma chloride jaymie surement (moles/volume)Ordered By: Victor Manuel Paiz on 01-09-2022 Chloride [Moles/Vol] 100 mmol/L 95-114 [facility] Serum or plasma creatine kin ase MB (CKMB)/total creatine kinase (CK) ratio by calculaOrdered By: Victor Manuel Paiz on 01-09-2022 CK.MB Calc [Catalytic fraction] 2.3 % 0.00-2.50 [facility] Serum or plasma creatine kin ase MB measurement (mass/volume)Ordered By: Victor Manuel Paiz on 01-09-2022 CK.MB [Mass/Vol] 5.4 ng/mL 0.6-6.3 [facility] Serum or plasma glucose alistair urement (mass/volume)Ordered By: Victor Manuel Paiz on 01-09-2022 Glucose [Mass/Vol] 99 mg/dL 70-100 [facility] Comment on above: ADA recommended refe rence rangeRandom Glucose Reference Range is dependent on time and content of last meal. Glucose of more than 200 mg/dL in a nonstressed, ambulatory subject supports the diagnosis of Diabetes Mellitus. Serum or plasma potassium me asurement (moles/volume)Ordered By: Victor Manuel Paiz on 01-09-2022 Potassium [Moles/Vol] 4.1 mmol/L 3.5-5.1 [facility] Serum or plasma sodium measu rement (moles/volume)Ordered By: Victor Manuel Paiz on 01-09-2022 Sodium [Moles/Vol] 136 mmol/L 136-146 [facility] Serum or plasma total carbon dioxide measurement (moles/volume)Ordered By: Victor Manuel Paiz on 01-09-2022 CO2 [Moles/Vol] 25.2 mmol/L 22.0-30.0 [facility] Serum or plasma urea nitroge n measurement (mass/volume)Ordered By: Victor Manuel Paiz on 01-09-2022 Urea nitrogen [Mass/Vol] 21 mg/dL 9- [facility] Mars Ag Negativeon 01-10-20 Mars Ag Negative Negative Normal Negative [facility] Comment on above: Result Comment: This is a duplicate Mars SARS Antigen (MADHAVI) result to be used for statistical tracking purpose only. PERFORMED BY: [place] [address] PATHOLOGIST SHEET [employer] INST[employer]ER JAYY SANTA M.D. Performed By: #### C OVID-19 MARS, SOFIANEG #### [facility] [address] [place] [address] Specific gravity Auto test s trip (U) [Rel density]Ordered By: Victor Manuel Paiz on 01-09-2022 Specific gravity (U) [Rel density] 1.018 1.001-1.03 0 [facility] Squamous epithelial cells de tection in urine sediment by light microscopyOrdered By: Victor Manuel Paiz on 01-09-2022 Epithelial cells.squamous LM Ql (Urine sed) 0-1 [HPF] 0-2 [facility] Troponin I High Sensitivityo n 01-09-2022 Troponin I High Sensitivity 101 pg/mL Off scale high 0-20 [facility] Comment on above: Result Comment: Resu lts called at 1208 on 01/09/22 PERFORMED BY: [place] [address] PATHOLOGIST SHEET [employer] INST[employer]ER JAYY SANTA M.D. Performed By: #### B MP, CBC #### [facility] [address] [place] [address] Troponin I.cardiac [Mass/vol ume] in Serum or Plasma by High sensitivity methodOrdered By: Victor Manuel Paiz on 01-09-2022 Troponin I.cardiac High sensitivity method [Mass/Vol] 101 pg/mL 0-20 [facility] Comment on above: Results calledat 120 8 on 01/09/22 Urine Cultureon 01-09-2022 Bacteria identified Cx Nom (U) 30,000 colonies/ml mixed bacterial skin contaminants 2 Days PERFORMED BY: [address] [place] [address] PATHOLOGIST SHEET [employer] INSTALLER JAYY SANTA M.D. [facility] Comment on above: Performed By: #### B MP, CBC #### [address] Urine bacteria detection by automated methodOrdered By: Victor Manuel Paiz on 01-09-2022 Bacteria Auto Ql (U) None seen None Seen [facility] Urine clarity by refractomet ry automatedOrdered By: Victor Manuel Paiz on 01-09-2022 Clarity Refractometry automated (U) Cloudy Clear [facility] Urine glucose measurement by automated test strip (mass/volume)Ordered By: Victor Manuel Paiz on 01-09-2022 Glucose Auto test strip (U) [Mass/Vol] Normal mg/dL Normal [facility] Urine hemoglobin detection b y automated test stripOrdered By: Victor Manuel Paiz on 01-09-2022 Hemoglobin Auto test strip Ql (U) Negative Negative [facility] Urine leukocyte esterase det ection by automated test stripOrdered By: Victor Manuel Paiz on 01-09-2022 Leukocyte esterase Auto test strip Ql (U) 2+ Negative [facility] Urobilinogen Auto test strip (U) [Mass/Vol]Ordered By: Victor Manuel Paiz on 01-09-2022 Urobilinogen (U) [Mass/Vol] Normal mg/dL Normal [facility] XR chest 1V portableon 01-09 XR chest 1V portable [facility] [place] [address] XRay Report Signed Patient: Irineo Wallis Jr MR#: [id number] : 1940 Acct:[id number] Age/Sex: 81 / M ADM Date: 01/09/22 Loc: ER Room: Type: [facility] ER Attending Dr: Copies to: Victor [...] Esa Cardoso M.D.01/09/2022 10:11 AM Dictation Location: [place] [address] Transcribed By: [facility] 01/09/22 1011 Dictated By: Esa Cardoso DO 01/09/22 1010 Signed By: 01/09/22 1011 Normal [facility] Yeast detection in urine sed iment by light microscopyOrdered By: Victor Manuel Paiz on 01-09-2022 Yeast LM Ql (Urine sed) None seen [HPF] None Seen [facility] pH Auto test strip (U)Ordere d By: Victor Manuel Paiz on 01-09-2022 pH (U) 5.5 [pH] 5.0-9.0 [facility] Body fluid albumin measureme nt (mass/volume)Ordered By: Feliciano Ga on 12-17-2021 Albumin (Body fld) [Mass/Vol] 3.5 g/dL 3.2-5.5 [facility] Comprehensive Metabolic Pane haley 12-17-2021 Albumin [Mass/Vol] 3.5 g/dL Normal 3.2-5.5 [facility] Comment on above: Order Comment: Reaso n for Exam Hypothyroidism, unspecified;Hypertension;Atrial fibrillation Reason for Exam Hypothyroidism, unspecified Performed By: #### C BC, BMP #### [facility] [address] Albumin/Globulin [Mass ratio] 1.6 {ratio} Normal [facility] Comment on above: Order Comment: Reaso n for Exam Hypothyroidism, unspecified;Hypertension;Atrial fibrillation Reason for Exam Hypothyroidism, unspecified Performed By: #### C BC, BMP #### [facility] [address] [place] [id number] [place] ALP [Catalytic activity/Vol] 92 U/L Normal 32-92 [facility] Comment on above: Order Comment: Reaso n for Exam Hypothyroidism, unspecified;Hypertension;Atrial fibrillation Reason for Exam Hypothyroidism, unspecified Performed By: #### C BC, BMP #### [facility] [address] [place] [id number] [facility] ALT [Catalytic activity/Vol] 19 U/L Normal 10-60 [facility] Comment on above: Order Comment: Reaso n for Exam Hypothyroidism, unspecified;Hypertension;Atrial fibrillation Reason for Exam Hypothyroidism, unspecified Performed By: #### C BC, BMP #### [facility] [address] [place] [id number] [facility] Anion gap [Moles/Vol] 15.3 mmol/L High 6.0-15.0 [facility] Comment on above: Order Comment: Reaso n for Exam Hypothyroidism, unspecified;Hypertension;Atrial fibrillation Reason for Exam Hypothyroidism, unspecified Performed By: #### C BC, BMP #### [facility] [address] AST [Catalytic activity/Vol] 27 U/L Normal 10-42 [facility] Comment on above: Order Comment: Reaso n for Exam Hypothyroidism, unspecified;Hypertension;Atrial fibrillation Reason for Exam Hypothyroidism, unspecified Performed By: #### C BC, BMP #### [facility] [address] [place] [id number] [facility] Bilirubin [Mass/Vol] 1.2 mg/dL Normal 0.3-1.2 [facility] Comment on above: Order Comment: Reaso n for Exam Hypothyroidism, unspecified;Hypertension;Atrial fibrillation Reason for Exam Hypothyroidism, unspecified Performed By: #### C BC, BMP #### [facility] [address] [place] [address] [place] Calcium [Mass/Vol] 9.6 mg/dL Normal 8.2-10.2 [facility] Comment on above: Order Comment: Reaso n for Exam Hypothyroidism, unspecified;Hypertension;Atrial fibrillation Reason for Exam Hypothyroidism, unspecified Performed By: #### C BC, BMP #### [facility] [address] Chloride [Moles/Vol] 103 mmol/L Normal 95-114 [facility] Comment on above: Order Comment: Reaso n for Exam Hypothyroidism, unspecified;Hypertension;Atrial fibrillation Reason for Exam Hypothyroidism, unspecified Performed By: #### C BC, BMP #### [facility] [address] [place] [id number] [facility] CO2 [Moles/Vol] 25.2 mmol/L Normal 22.0-30.0 [facility] Comment on above: Order Comment: Reaso n for Exam Hypothyroidism, unspecified;Hypertension;Atrial fibrillation Reason for Exam Hypothyroidism, unspecified Performed By: #### C BC, BMP #### [facility] [address] Creatinine [Mass/Vol] 1.29 mg/dL High 0.64-1.27 [facility] Comment on above: Order Comment: Reaso n for Exam Hypothyroidism, unspecified;Hypertension;Atrial fibrillation Reason for Exam Hypothyroidism, unspecified Performed By: #### C BC, BMP #### [address] Estimated GFR ( Amarilis > 60 [facility] Comment on above: Order Comment: Reaso n for Exam Hypothyroidism, unspecified;Hypertension;Atrial fibrillation Reason for Exam Hypothyroidism, unspecified Result Comment: GFR estimated reference range: According to KDOQI guidelines, <60 ml/min/1.73m2 is sufficient to diagnose a patient with chronic kidney disease. Performed By: #### C BC, BMP #### [address] Estimated GFR (Non- Am 54 [facility] Comment on above: Order Comment: Reaso n for Exam Hypothyroidism, unspecified;Hypertension;Atrial fibrillation Reason for Exam Hypothyroidism, unspecified Performed By: #### C BC, BMP #### [facility] [address] [place] [id number] [facility] Globulin (S) [Mass/Vol] 2.2 g/dL [facility] Comment on above: Order Comment: Reaso n for Exam Hypothyroidism, unspecified;Hypertension;Atrial fibrillation Reason for Exam Hypothyroidism, unspecified Performed By: #### C BC, BMP #### [address] Glucose [Mass/Vol] 84 mg/dL Normal 70-100 [facility] Comment on above: Order Comment: Reaso n for Exam Hypothyroidism, unspecified;Hypertension;Atrial fibrillation Reason for Exam Hypothyroidism, unspecified Result Comment: [facility] Glucose Reference Range is dependent on time and content of last meal. Glucose of more than 200 mg/dL in a nonstressed, ambulatory subject supports the diagnosis of Diabetes Mellitus. ADA recommended reference range Performed By: #### C BC, BMP #### [facility] [address] [place] [address] [facility] Potassium [Moles/Vol] 4.5 mmol/L Normal 3.5-5.1 [facility] Comment on above: Order Comment: Reaso n for Exam Hypothyroidism, unspecified;Hypertension;Atrial fibrillation Reason for Exam Hypothyroidism, unspecified Performed By: #### C BC, BMP #### [facility] [address] [place] [id number] [facility] Protein [Mass/Vol] 5.7 g/dL Low 6.1-7.9 [facility] Comment on above: Order Comment: Reaso n for Exam Hypothyroidism, unspecified;Hypertension;Atrial fibrillation Reason for Exam Hypothyroidism, unspecified Performed By: #### C BC, BMP #### [facility] [address] [place] [address] [place] Sodium [Moles/Vol] 139 mmol/L Normal 136-146 [facility] Comment on above: Order Comment: Reaso n for Exam Hypothyroidism, unspecified;Hypertension;Atrial fibrillation Reason for Exam Hypothyroidism, unspecified Performed By: #### C BC, BMP #### [facility] [address] [place] [address] [place] Urea nitrogen [Mass/Vol] 16 mg/dL Normal 9-23 [facility] [facility] Comment on above: Order Comment: Reaso n for Exam Hypothyroidism, unspecified;Hypertension;Atrial fibrillation Reason for Exam Hypothyroidism, unspecified Performed By: #### C BC, BMP #### [facility] [address] [id number] [place] Creatinine and Glomerular fi ltration rate.predicted panel (S/P/Bld)Ordered By: Feliciano Ga on 12-17-2021 Creatinine [Mass/Vol] 1.29 mg/dL 0.64-1.27 [facility] Estimated glomerular filtrat ion rate (GFR) non- AmericanOrdered By: Feliciano Ga on 12-17-2021 GFR/1.73 sq M.predicted among non-blacks MDRD (S/P/Bld) [Vol rate/Area] 54 mL/Min [facility] Free T4 (Free Thyroxine)on Free T4 [Mass/Vol] 1.09 ng/dL Normal 0.61-1.12 [facility] Comment on above: Order Comment: Reaso n for Exam Hypothyroidism, unspecified;Hypertension;Atrial fibrillation Reason for Exam Hypothyroidism, unspecified Performed By: #### C BC, BMP #### [facility] [address] [place] [address] Globulin Calc (S) [Mass/Vol] Ordered By: Feliciano Ga on 12-17-2021 Globulin (S) [Mass/Vol] 2.2 g/dL [facility] No Panel InformationOrdered By: Feliciano Ga on 12-17-2021 Estimated GFR () > 60 mL/Min [facility] Comment on above: GFR estimated refere nce range: According to KDOQI guidelines, <60 ml/min/1.73m2 is sufficient to diagnose a patient with chronic kidney disease. Pharmacy Creatinine Clearance (Chem N/A [facility] Protein [Mass/volume] in Ser um or PlasmaOrdered By: Feliciano Ga on 12-17-2021 Protein [Mass/Vol] 5.7 g/dL 6.1-7.9 [facility] Serum or plasma alanine alvarez otransferase measurement without P-5'-P (enzymatic activiOrdered By: Feliciano Ga on 12-17-2021 ALT No additional P-5'-P [Catalytic activity/Vol] 19 U/L 10-60 [facility] Serum or plasma albumin/glob ulin mass ratioOrdered By: Feliciano Ga on 12-17-2021 Albumin/Globulin [Mass ratio] 1.6 {ratio} [facility] Serum or plasma alkaline harish sphatase measurement (enzymatic activity/volume)Ordered By: Feliciano Ga on 12-17-2021 ALP [Catalytic activity/Vol] 92 U/L 32-92 [facility] Serum or plasma anion gap de terminationOrdered By: Feliciano Ga on 12-17-2021 Anion gap [Moles/Vol] 15.3 mmol/L 6.0-15.0 [facility] Serum or plasma aspartate am inotransferase measurement (enzymatic activity/volume)Ordered By: Feliciano Ga on 12-17-2021 AST [Catalytic activity/Vol] 27 U/L 10-42 [facility] Serum or plasma calcium alistair urement (mass/volume)Ordered By: Feliciano Ga on 12-17-2021 Calcium [Mass/Vol] 9.6 mg/dL 8.2-10.2 [facility] Serum or plasma chloride jaymie surement (moles/volume)Ordered By: Feliciano Ga on 12-17-2021 Chloride [Moles/Vol] 103 mmol/L 95-114 [facility] Serum or plasma glucose alistair urement (mass/volume)Ordered By: Feliciano Ga on 12-17-2021 Glucose [Mass/Vol] 84 mg/dL 70-100 [facility] Comment on above: ADA recommended refe rence rangeRandom Glucose Reference Range is dependent on time and content of last meal. Glucose of more than 200 mg/dL in a nonstressed, ambulatory subject supports the diagnosis of Diabetes Mellitus. Serum or plasma potassium me asurement (moles/volume)Ordered By: Feliciano Ga on 12-17-2021 Potassium [Moles/Vol] 4.5 mmol/L 3.5-5.1 [facility] Serum or plasma sodium measu rement (moles/volume)Ordered By: Feliciano Ga on 12-17-2021 Sodium [Moles/Vol] 139 mmol/L 136-146 [facility] Serum or plasma total biliru bin measurement (mass/volume)Ordered By: Feliciano Ga on 12-17-2021 Bilirubin [Mass/Vol] 1.2 mg/dL 0.3-1.2 [facility] Serum or plasma total carbon dioxide measurement (moles/volume)Ordered By: Feliciano Ga on 12-17-2021 CO2 [Moles/Vol] 25.2 mmol/L 22.0-30.0 [facility] Serum or plasma urea nitroge n measurement (mass/volume)Ordered By: Feliciano Ga on 12-17-2021 Urea nitrogen [Mass/Vol] 16 mg/dL 11-27 [facility] TSH DL <= 0.005 mIU/L QnOrde red By: Feliciano Ga on 12-17-2021 TSH Qn 1.83 m[IU]/L 0.45-5.33 [facility] Thyroid Stimulating Hormoneo n 12-17-2021 TSH Qn 1.83 m[IU]/L Normal 0.45-5.33 [facility] Comment on above: Order Comment: Reaso n for Exam Hypothyroidism, unspecified;Hypertension;Atrial fibrillation Reason for Exam Hypothyroidism, unspecified Result Comment: PERF ORMED BY: [facility] [address] [place] [address] PATHOLOGIST SHEET METAL DUCT INSTALLER JAYY SANTA M.D. Performed By: #### C BC, BMP #### [address] Thyroxine (T4) free [Mass/vo lume] in Serum or PlasmaOrdered By: Feliciano Ga on 12-17-2021 Free T4 [Mass/Vol] 1.09 ng/dL 0.61-1.12 [facility] Office Visit (Cardiology)on 08-04-2021 Follow-up visit [...] Weight Tips; Status:Complete - Retrospective Authorization; Done: [id number] Essential hypertension, benign, Hyperlipemia Renew: Atorvastatin Calcium 40 MG Oral Tablet; TAKE 1 TABLET Bedtime SocHx: Former smoker Tobacco Use Screening; Status:Complete; Done: [id number] Patient Instructions By signing my name below, Norah Washington LPN, Scribe, attest that this documentation has [...] of Cardiac catheterization History of Complete colonoscopy [facility] History of Hip replacement History of [...] for com (more content not included)... Normal Potential Tobacco Screening.on 022 Adult depression screening assessment No [facility] tabulate lauro 250 DO Work Phone: Fall risk assessment b) One or more fall s in the last year [facility] lauro 250 DO Work Phone: Tobacco use status CP b) No [facility] lauro 250 DO Work Phone: Tobacco Screening.on 021 Fall risk assessment b) One or more fall s in the last year [facility] [employer] HRte[employer]ita lauro 250 DO Work Phone: Tobacco use status CP b) No [facility] lauro 250 DO Work Phone: Coding Summary.on 12-16-2016 Coding Summary. CODING DATE: 017 FINAL [facility] DSC STATUS: Home (Routine DC) PAYOR: Medicare APC [...] neoplasm of other organs and systems Z79.01 group home (current) use of anticoagulants Z96.649 Presence of [...] Bynum Date Saved: 12/16/2016 09:56 am Normal [facility] Inpatient Patient Summaryon 12-15-2016 Inpatient Patient Summary [address] [address] Clinical SummaryPerson Information Name: IRINEO WALLIS Age: 76 Years : 1940 12:00 AM Sex: Male PCP: NONE, XXXX Marital Status: Race:White Ethnicity:Non- or Language:Persian Visit Id: Visit Reason:BPH WITH OBSTRUCTION Speciality: Acuity: Enc Type: Outpatient Med Service: Surgery Arrival:12/15/2016 8:36 AM Discharge: Dispo Type: Address:[address] [address] [place] [id number] Provider Notes: Diagnosis: Problems No Problems Documented [...] Information: EU - Urolift Discharge Instructions (CUSTOM) [facility] Main OR Intraoperative Recor don 12-15-2016 Main OR Intraoperative Record IntraOp Document Type FTURO Summary Primary Physician: Dontrell Good MD Finalized Date/Time: 12/15/16 09:47:51 Pt. Name: IRINEO WALLIS/Sex: 1940 Male Med Rec #: [id number] Physician: Dontrell Good MD Financial #: [id number] Pt. Type: O Room/Bed: / Admit/Disch: 12/15/16 [...] Sylwia Good MD, Dontrell Schaefer Role Performed Wastewater Plant Operator - Primary Scrub - Primary Surgeon - Primary Time In 12/15/16 09:25:00 12/15/16 09:25:00 12/15/16 09:25:00 Time Out 12/15/16 09:51:00 12/15/16 09:51:00 12/15/16 09:51:00 Procedure CYSTOSCOPY LOCAL CYSTOSCOPY LOCAL CYSTOSCOPY LOCAL UROLIFT(.) UROLIFT(.) UROLIFT(.) Comments Last Modified By: Fanta FLORES, BARRYOR, Fanta FLORES, LEONARD, Fanta FLORES, Olive VALLE 12/15/16 Olive 12/15/16 Olive 12/15/16 09:46:13 09:46:13 09:46:13 General Comments: matheus jorgensen rep in room for procedure Surgical Procedures FTURO Entry 1 Procedure Description Procedure CYSTOSCOPY LOCAL UROLIFT Modifiers . Surgeon Description UROLIFT and cysto Primary Procedure Yes Primary Surgeon Florentino TIDWELL, Dontrell Roe Start 12/15/16 09:34:00 Stop 12/15/16 09:46:00 Anesthesia Type Local Surgical Service Urology Wound Class 2 - Clean-Contaminated Last Modified By: Fanta FLORES, Olive VALLE 12/15/16 09:46:15 General Case Data FTURO Pre-Care Text: Classifies surgical wound, implements aseptic technique, initiates traffic control Entry 1 Case Information OR URO 1 FT Case Level None Wound Class 2 - Clean-Contaminated Specialty Urology Preop Diagnosis BPH WITH OBSTRUCTION Postop Same As Preop Yes Postop Diagnosis BPH WITH OBSTRUCTION Outcomes Met? Yes Last Modified By: Fanta FLORES, Olive VALLE 12/15/16 07:45:32 Post-Care Text: The patient is [...] Position Verified Availability Equipment, Implant, Time Out Fanta FLORES, LEONARD, Verified (If Medication Participants Ailin Schaefer BIOMEDICAL ENGINEERING AIDE, Ana Applicable) RFlorentino MD, Dontrell Roe Time Out Complete 12/15/16 [...] Identification Description urolift urolift urolift Serial Number [id number] Lot Number [id number] Caddie Supervisor neotract neotract neotract Catalog ?# Size Expiration [...] LEONARD Jewell RN, Ruthann 12/15/16 09:47 [facility] Main OR Preoperative Recordo n 12-15-2016 Main OR Preoperative Record Holding Area Document Type FTURO Summary Primary Physician: Dontrell Good MD Finalized Date/Time: 12/15/16 09:34:53 Pt. Name: IRINEO WALLIS /Sex: 1940 Male Med Rec #: [id number] Physician: Dontrell Good MD Financial #: [id number] Pt. Type: O Room/Bed: / Admit/Disch: 12/15/16 [...] Complaints of Pain: No Skin Integrity Intact, [place], Warm, & Dry Vitals - EU Blood Pressure 107/68 Pulse 78 bpm Respirations 16 br/min SPO2 Additional None RN Reviewed Yes Specimens Collected Last Modified By: LEONARD Jeewll RN, Ruthann 12/15/16 09:30:48 Finalized By: LEONARD Jewell RN, Ruthann Document Signatures Signed By: LEONARD Jewell RN, Ruthann 12/15/16 09:30 Ingris Goel 12/15/16 09:09 LEONARD Jewell RN, Ruthann 12/15/16 09:34 [facility] Operative Reporton 7 Operative Report Patient: LEAH [...] procedure (10 mg diazepam, 5/325 mg of [place]), Local Anesthesia (60cc 2% Xylocaine liquid inserted [...] procedure well and was subsequently discharged home. [facility] Comment on above: Result Comment: Elec tronically Signed By: Florentino TIDWELL, Dontrell Kong\Date and Time Signed: 12/15/16 09:49 EDT Vital Signs Date Time Vital Sign Value Performing Clinician Facility 03-18-2023 09:15-0500 Body height 167.64 cm Feliciano Ga Other [facility] Other 03-18-2023 09:15-0500 Body mass index (BMI) [Ratio] 29.7 kg/m2 Feliciano Ga Other [facility] Other 03-18-2023 09:15-0500 Body weight 83.46 kg Feliciano Ga Other [facility] Other 03-18-2023 09:15-0500 Diastolic blood pressure 80 mm[Hg] Feliciano Ga Other [facility] Other 03-18-2023 09:15-0500 Respiratory rate 16 /min Feliciano Ga Other [facility] Other 03-18-2023 09:15-0500 SaO2% (BldA) [Mass fraction] 97 % Feliciano Ga Other [facility] Other 03-18-2023 09:15-0500 Systolic blood pressure 124 mm[Hg] Feliciano Ga Other [facility] Other 09-15-2022 09:15-0400 Body height 167.64 cm Feliciano Ga Other [facility] Other 09-15-2022 09:15-0400 Body mass index (BMI) [Ratio] 28.11 kg/m2 Feliciano Ga Other [facility] Other 09-15-2022 09:15-0400 Body weight 79.02 kg Feliciano Ga Other [facility] Other 09-15-2022 09:15-0400 Diastolic blood pressure 70 mm[Hg] Feliciano Ga Other [facility] Other 09-15-2022 09:15-0400 Respiratory rate 16 /min Feliciano Ga Other [facility] Other 09-15-2022 09:15-0400 SaO2% (BldA) [Mass fraction] 96 % Feliciano Ga Other [facility] Other 09-15-2022 09:15-0400 Systolic blood pressure 112 mm[Hg] Feliciano Ga Other [facility] Other 07-07-2022 09:36-0400 Body height 167.64 cm Feliciano Ga Work Phone: [employer] 250 DO Work Phone: 07-07-2022 09:36-0400 Body mass index (BMI) [Ratio] 28.89 kg/m2 Feliciano Ga Work Phone: [employer] 250 DO Work Phone: 07-07-2022 09:36-0400 Body surface area Derived from formula 1.91 m2 Feliciano Ga Work Phone: [facility] [employer] 250 DO Work Phone: 07-07-2022 09:36-0400 Body weight 81.19 kg Feliciano Ga Work Phone: [facility] 250 DO Work Phone: 07-07-2022 09:36-0400 Diastolic blood pressure 84 mm[Hg] Feliciano Ga Work Phone: [facility] 250 DO Work Phone: 07-07-2022 09:36-0400 Heart rate 76 /min Feliciano Ga Work Phone: [facility] 250 DO Work Phone: 07-07-2022 09:36-0400 Systolic blood pressure 128 mm[Hg] Feliciano Ga Work Phone: [facility] 250 DO Work Phone: 06-07-2022 10:15-0400 Body height 167.64 cm Feliciano Ga Other [facility] [employer] Other 06-07-2022 10:15-0400 Body mass index (BMI) [Ratio] 29.7 kg/m2 Feliciano Ga Other [employer] Other 06-07-2022 10:15-0400 Body weight 83.46 kg Feliciano Ga Other [facility] [employer] Other 06-07-2022 10:15-0400 Diastolic blood pressure 60 mm[Hg] Feliciano Ga Other [facility] [employer] Other 06-07-2022 10:15-0400 Respiratory rate 16 /min Feliciano Ga Other [facility] [employer] Other 06-07-2022 10:15-0400 SaO2% (BldA) [Mass fraction] 96 % Feliciano Harmeet Other [facility] [employer] Other 06-07-2022 10:15-0400 Systolic blood pressure 120 mm[Hg] Feliciano Tjcatie Other [facility] [employer] Other 03-10-2022 14:47-0500 Body height 167.64 cm Feliciano Ga Work Phone: [facility] 250 DO Work Phone: 03-10-2022 14:47-0500 Body mass index (BMI) [Ratio] 30.18 kg/m2 Feliciano Myers Harmeet Work Phone: [facility] 250 DO Work Phone: 03-10-2022 14:47-0500 Body surface area Derived from formula 1.94 m2 Feliciano Louis Ga Work Phone: [facility] 250 DO Work Phone: 03-10-2022 14:47-0500 Body weight 84.82 kg Felicianoamadou Ga Work Phone: [facility] 250 DO Work Phone: 03-10-2022 14:47-0500 Diastolic blood pressure 90 mm[Hg] Feliciano Myers Harmeet Work Phone: [facility] 250 DO Work Phone: 03-10-2022 14:47-0500 Heart rate 72 /min Feliciano Spencercatie Work Phone: [facility] 250 DO Work Phone: 03-10-2022 14:47-0500 Systolic blood pressure 128 mm[Hg] Feliciano Ga Work Phone: [facility] 250 DO Work Phone: 03-09-2022 13:30-0500 Body height 142.24 cm Feliciano Ga Other [facility] [employer] Other 03-09-2022 13:30-0500 Body mass index (BMI) [Ratio] 42.82 kg/m2 Feliciano Ga Other [facility] [employer] Other 03-09-2022 13:30-0500 Body weight 86.64 kg Feliciano Ga Other [facility] [employer] Other 03-09-2022 13:30-0500 Diastolic blood pressure 78 mm[Hg] Feliciano Ga Other [facility] [employer] Other 03-09-2022 13:30-0500 Respiratory rate 16 /min Feliciano Ga Other [facility] [employer] Other 03-09-2022 13:30-0500 SaO2% (BldA) [Mass fraction] 96 % Feliciano Ga Other [facility] [employer] Other 03-09-2022 13:30-0500 Systolic blood pressure 136 mm[Hg] Feliciano Ga Other [facility] [employer] Other 02-09-2022 15:45-0500 Body height 142.24 cm Feliciano Ga Other [employer] [employer] Other 02-09-2022 15:45-0500 Body mass index (BMI) [Ratio] 44.92 kg/m2 Feliciano Ga Other [facility] [employer] Other 02-09-2022 15:45-0500 Body weight 90.9 kg Feliciano Kuns Other [facility] Other 02-09-2022 15:45-0500 Diastolic blood pressure 83 mm[Hg] Feliciano Tjs Other [facility] Other 02-09-2022 15:45-0500 Respiratory rate 16 /min Feliciano Spencers Other [facility] Other 02-09-2022 15:45-0500 SaO2% (BldA) [Mass fraction] 98 % Feliciano Spencers Other [facility] Other 02-09-2022 15:45-0500 Systolic blood pressure 124 mm[Hg] Feliciano Spencers Other [employer] Other 01-16-2022 11:37-0500 Body temperature 98.1 [degF] DO Feliciano Tjs Work Phone: [facility] 01-16-2022 11:37-0500 Diastolic blood pressure 71 mm[Hg] DO Feliciano Kuns Work Phone: [facility] 01-16-2022 11:37-0500 Heart rate 79 /min DO Feliciano Kuns Work Phone: [facility] 01-16-2022 11:37-0500 Respiratory rate 16 /min DO Feliciano Kuns Work Phone: [facility] 01-16-2022 11:37-0500 SaO2% (BldA) [Mass fraction] 97 % DO Feliciano Kuns Work Phone: [facility] 01-16-2022 11:37-0500 Systolic blood pressure 124 mm[Hg] DO Feliciano Kuns Work Phone: [facility] 01-16-2022 04:10-0500 Body weight 90.5 kg DO Feliciano Kuns Work Phone: [facility] 01-13-2022 16:00-0500 Inhaled oxygen flow rate 1 L/min DO Feliciano Tjs Work Phone: [facility] 01-11-2022 13:55-0500 Body height 167.64 cm DO Feliciano Tjs Work Phone: [facility] 01-09-2022 14:00-0400 Diastolic blood pressure 74 mm[Hg] DO Feliciano Tjs Work Phone: [facility] 01-09-2022 14:00-0400 Heart rate 67 /min DO Feliciano Tjs Work Phone: [facility] 01-09-2022 14:00-0400 Inhaled oxygen flow rate 3 L/min DO Feliciano Spencers Work Phone: [facility] 01-09-2022 14:00-0400 Respiratory rate 19 /min DO Feliciano Spencers Work Phone: [facility] 01-09-2022 14:00-0400 SaO2% (BldA) [Mass fraction] 99 % DO Feliciano Spencers Work Phone: [facility] 01-09-2022 14:00-0400 Systolic blood pressure 145 mm[Hg] DO Felicianoamadou Spencers Work Phone: [facility] 01-09-2022 09:41-0400 Body temperature 97.2 [degF] DO Felicianoamadou Spencers Work Phone: [facility] 01-09-2022 09:38-0400 Body height 167.64 cm DO Felicainoamadou Spencers Work Phone: [facility] 01-09-2022 09:38-0400 Body weight 96 kg DO Feliciano Tjs Work Phone: [facility] 01-07-2022 13:45-0400 Body height 142.24 cm Felicianoamadou Spencers Other [facility] Other 01-07-2022 13:45-0400 Body mass index (BMI) [Ratio] 48.42 kg/m2 Feliciano Ga Other [facility] Other 01-07-2022 13:45-0400 Body weight 97.98 kg Feliciano Ga Other [facility] Other 01-07-2022 13:45-0400 Diastolic blood pressure 62 mm[Hg] Feliciano Ga Other [facility] Other 01-07-2022 13:45-0400 Respiratory rate 16 /min Feliciano Ga Other [facility] Other 01-07-2022 13:45-0400 SaO2% (BldA) [Mass fraction] 94 % Feliciano Ga Other [facility] Other 01-07-2022 13:45-0400 Systolic blood pressure 122 mm[Hg] Feliciano Ga Other [facility] Other 10-12-2021 09:00-0400 Body height Feliciano Ga Other [facility] Other 10-12-2021 09:00-0400 Body mass index (BMI) [Ratio] 32.83 kg/m2 Feliciano Ga Other [facility] Other 10-12-2021 09:00-0400 Body weight 92.26 kg Feilciano Ga Other [facility] Other 10-12-2021 09:00-0400 Diastolic blood pressure 54 mm[Hg] Feliciano Kuns Other [facility] Other 10-12-2021 09:00-0400 Respiratory rate 16 /min Feliciano Ga Other [facility] Other 10-12-2021 09:00-0400 SaO2% (BldA) [Mass fraction] 95 % Feliciano Ga Other [facility] Other 10-12-2021 09:00-0400 Systolic blood pressure 110 mm[Hg] Feliciano Spencers Other [facility] Other 09-11-2021 10:00-0400 Body height Feliciano Ga Other [facility] Other 09-11-2021 10:00-0400 Diastolic blood pressure 52 mm[Hg] Feliciano Ga Other [facility] Other 09-11-2021 10:00-0400 Respiratory rate 16 /min Feliciano Ga Other [facility] Other 09-11-2021 10:00-0400 SaO2% (BldA) [Mass fraction] 96 % Feliciano Ga Other [facility] Other 09-11-2021 10:00-0400 Systolic blood pressure 102 mm[Hg] Feliciano Spencers Other [facility] Other 08-31-2021 12:00-0400 Body height Feliciano Spencers Other [facility] Other 08-31-2021 12:00-0400 Diastolic blood pressure 70 mm[Hg] Feliciano Kuns Other [facility] [employer] Other 08-31-2021 12:00-0400 Systolic blood pressure 130 mm[Hg] Feliciano Ga Other [facility] [employer] Other 08-04-2021 14:17-0400 Body height 167.64 cm Feliciano Ga Work Phone: [facility] 250 DO Work Phone: 08-04-2021 14:17-0400 Body mass index (BMI) [Ratio] 33.09 kg/m2 Feliciano Ga Work Phone: [facility] 250 DO Work Phone: 08-04-2021 14:17-0400 Body surface area Derived from formula 2.02 m2 Feliciano Ga Work Phone: [facility] 250 DO Work Phone: 08-04-2021 14:17-0400 Body weight 92.99 kg Feliciano Ga Work Phone: [facility] 250 DO Work Phone: 08-04-2021 14:17-0400 Diastolic blood pressure 56 mm[Hg] Feliciano Ga Work Phone: [facility] 250 DO Work Phone: 08-04-2021 14:17-0400 Heart rate 54 /min Feliciano Ga Work Phone: [facility] 250 DO Work Phone: 08-04-2021 14:17-0400 Systolic blood pressure 108 mm[Hg] Feliciano Ga Work Phone: [facility] 250 DO Work Phone: 01-19-2021 09:30-0500 Body height Feliciano Ga Other [facility] Other 01-19-2021 09:30-0500 Body mass index (BMI) [Ratio] 33.67 kg/m2 Feliciano Ga Other [facility] Other 01-19-2021 09:30-0500 Body weight 94.62 kg Feliciano Ga Other [facility] Other 01-19-2021 09:30-0500 Diastolic blood pressure 62 mm[Hg] Feliciano Ga Other [facility] Other 01-19-2021 09:30-0500 Respiratory rate 16 /min Feliciano Ga Other [facility] Other 01-19-2021 09:30-0500 SaO2% (BldA) [Mass fraction] 96 % Feliciano Ga Other [facility] Other 01-19-2021 09:30-0500 Systolic blood pressure 116 mm[Hg] Feliciano Ga Other [facility] Other 01-05-2021 15:22-0400 Body height 167.64 cm Feliciano Ga Work Phone: [facility] [employer] 250 DO Work Phone: 01-05-2021 15:22-0400 Body mass index (BMI) [Ratio] 33.25 kg/m2 Feliciano Ga Work Phone: [facility] [employer] 250 DO Work Phone: 01-05-2021 15:22-0400 Body surface area Derived from formula 2.03 m2 Feliciano Ga Work Phone: [facility] 250 DO Work Phone: 01-05-2021 15:22-0400 Body weight 93.44 kg Feliciano Louis Harmeet Work Phone: [facility] 250 DO Work Phone: 01-05-2021 15:22-0400 Diastolic blood pressure 84 mm[Hg] Feliciano Ga Work Phone: [facility] 250 DO Work Phone: 01-05-2021 15:22-0400 Heart rate 56 /min Feliciano Ga Work Phone: [facility] 250 DO Work Phone: 01-05-2021 15:22-0400 Systolic blood pressure 126 mm[Hg] eFliciano Ga Work Phone: [facility] 250 DO Work Phone: Encounters Encounter Date Encounter Type Care Provider Facility Start: 03-18-2023 End: 03-18-2023 ambulatory Feliciano Ga Other [facility] Other Start: 03-18-2023 Office outpatient visit 25 minutes Feliciano Ga [facility] Start: 03-14-2023 End: 03-15-2023 ambulatory Diana Price MD Facility: [facility] Start: 01-10-2023 End: 01-11-2023 ambulatory Diana Price MD Facility:[facility] Start: 12-31-2022 End: 12-31-2022 ambulatory Feliciano Ga Other [facility] Other Start: 12-31-2022 Telephone encounter Feliciano EUCEDA [facility] Start: 12-06-2022 End: 12-06-2022 ambulatory Feliciano Ga Other [facility] Other Start: 12-06-2022 Telephone encounter Feliciano Ga [facility] [place] Start: 11-30-2022 End: 11-30-2022 ambulatory Feliciano Spencercatie Other [place] [employer] Other Start: 11-30-2022 Telephone encounter Feliciano Ga [facility] [place] Start: 10-14-2022 ambulatory DOMINICEARNEST WALLACE . Facili ty:H1 Start: 09-15-2022 End: 09-15-2022 ambulatory Feliciano Tjcatie Other [place] [employer] Other Start: 09-15-2022 Office outpatient visit 15 minutes Feliciano Ga [facility] [place] Start: 09-10-2022 Chart Update Feliciano Ga Work Phone: [facility] 250 DO Work Phone: Start: 09-08-2022 Telephone encounter Feliciano Ga [facility] [place] Start: 09-08-2022 End: 09-08-2022 ambulatory Feliciano Ga Facility:[facility] Start: 09-08-2022 End: 09-08-2022 ambulatory DO Feliciano Ga Work Phone: [facility] Work Phone: Start: 09-08-2022 End: 09-08-2022 Patient encounter procedure DO Feliciano Ga Work Phone: [facility] [place] Work Phone: Start: 08-30-2022 Rx Renewal Feliciano Ga [facility] Phone: [facility] DO Work Phone: Start: 07-08-2022 End: 07-09-2022 ambulatory NARENDRANTIM RODRÍGUEZMIJUANY . Facility: Start: 07-07-2022 Office outpatient visit 15 minutes Feliciano Ga Work Phone: [facility] 250 DO Work Phone: Start: 07-07-[address] Feliciano Ga Facility: Start: 06-07-2022 End: 06-07-2022 ambulatory Feliciano Ga Other [employer] Other Start: 06-07-2022 Office outpatient visit [facility] minutes [facility] Start: 06-01-2022 End: 06-01-2022 ambulatory Feliciano Ga Other [place] [employer] Other Start: 06-01-2022 Telephone encounter [facility] Start: 05-13-2022 End: 05-14-2022 ambulatory EDILMA MANDEL Facility:H1 Start: 05-11-2022 End: 05-11-2022 ambulatory Feliciano Ga Other [place] [employer] Other Start: 05-11-2022 Telephone encounter Feliciano Ga [facility] Start: 04-15-2022 End: 04-16-[address] TROY BRAMBILA . Facility:H1 Start: 04-12-2022 End: 04-12-2022 ambulatory Feliciano Ga Facility:[facility] Start: 04-12-2022 End: 04-12-2022 ambulatory DO Feliciano Ga Work Phone: [facility] Work Phone: Start: 04-12-2022 End: 04-12-2022 Discharged Recurring DO Feliciano Ga Work Phone: [facility] [place] Work Phone: Start: 03-30-2022 End: 03-30-[address] TROY BRAMBILA . Facility:H1 Start: 03-29-2022 Rx Renewal Feliciano Ga Work Phone: [facility] 250 DO Work Phone: Start: 03-19-2022 ambulatory Marv Drew Facility : Start: 03-15-2022 ambulatory Ms. Mcdaniels Raegan Gomez Facility: Start: 03-15-2022 Patient encounter procedure Feliciano Louis Ga Work Phone: [facility] 250 DO Work Phone: Start: 03-15-2022 Chart Update Feliciano Ga Work Phone: [facility] 250 DO Work Phone: Start: 03-11-2022 End: 03-11-2022 ambulatory Feliciano Ga Facility:[facility] Start: 03-11-2022 Registered Recurring DO Feliciano Ga Work Phone: [facility] [place] Work Phone: Start: 03-11-2022 End: 03-11-2022 ambulatory DO Feliciano Ga Work Phone: [facility] Work Phone: Start: 03-11-2022 End: 03-11-2022 Patient encounter procedure DO Feliciano Ga Work Phone: [facility] [place] Work Phone: Start: 03-10-2022 FUV, Provider: Enedelia Mix, Status: Pen, Time: 2:30 PM Feliciano Ga Work Phone: [facility] 250 DO Work Phone: Start: 03-10-2022 Office outpatient visit 25 minutes Feliciano Spencercatie Work Phone: [facility] 600 DO Work Phone: Start: 03-10-2022 Patient encounter procedure Feliciano Ga Work Phone: [facility] 250 DO Work Phone: Start: 03-10-2022 ambulatory Ms. Enedelia Gomez Facility: Start: 03-09-2022 End: 03-09-2022 ambulatory Feliciano Ga Other [employer] Other Start: 03-09-2022 Office outpatient visit 15 minutes Feliciano Ga [facility] Start: 03-04-2022 End: 03-04-2022 ambulatory Feliciano Ga Other [employer] Other Start: 03-04-2022 Telephone encounter Feliciano Ga [facility] Start: 03-03-2022 Rx Renewal Feliciano Ga Work Phone: [facility] 250 DO Work Phone: Start: 03-03-2022 End: 03-03-2022 ambulatory Feliciano Ga Other [place] [employer] Other Start: 03-03-2022 Telephone encounter Feliciano Ga [facility] Start: 02-18-2022 End: 02-19-[address] TROY BRAMBILA . Facility: Start: 02-15-2022 Rx Renewal [facility]iciano Ga [facility] DO Work Phone: Start: 02-09-2022 End: 02-09-2022 ambulatory Feliciano Ga Other [employer] Other Start: 02-09-2022 Office outpatient visit 25 minutes [facility] Start: 01-13-2022 End: 01-13-2022 ambulatory Feliciano Ga Other [employer] Other Start: 01-13-2022 Telephone encounter [facility] Start: 01-12-[address] Feliciano Ga Facility:[id number] Start: 01-11-2022 ambulatory Marv Drew Facility :[id number] Start: 01-10-[address] Feliciano Ga Facility:[id number] Start: 01-09-2022 End: 01-16-2022 Evaluation and management of inpatient Feliciano Ga Facility:[facility] Start: 01-09-2022 End: 01-16-2022 Evaluation and management of inpatient DO Feliciano Ga Work Phone: [facility] Start: 01-07-2022 End: 01-07-2022 ambulatory Feliciano Ga Other [employer] Other Start: 01-07-2022 Office outpatient visit 25 minutes Feliciano Ga [facility] Start: 12-25-2021 End: 12-25-2021 ambulatory Feliciano Ga Other [employer] Other Start: 12-25-2021 Telephone encounter Feliciano Ga [facility] Start: 12-17-2021 End: 12-18-[address] TROY BRAMBILA . Facility:H1 Start: 12-17-2021 End: 12-17-2021 ambulatory DO Feliciano Ga Work Phone: [facility] Work Phone: Start: 12-17-2021 End: 12-17-2021 Patient encounter procedure DO Feliciano Ga Work Phone: [facility] [place] Start: 12-01-2021 End: 12-01-[address] TROY BRAMBILA . Facility:H1 Start: 11-12-2021 End: 11-13-[address] NELSY GA Facility:H1 Start: 10-12-2021 End: 10-12-2021 ambulatory Feliciano Ga Other [employer] Other Start: 10-12-2021 Office outpatient visit 15 minutes Feliciano Ga [facility] [place] Start: 09-28-2021 Telephone encounter Feliciano Ga [facility] [place] Start: 09-28-2021 End: 09-28-2021 ambulatory Monserrat Rodarte [facility] [employer] Other Start: 09-28-2021 End: 09-28-2021 Discharged Recurring DO Feliciano Ga Work Phone: [facility] [place] Start: 09-11-2021 End: 09-11-2021 ambulatory Feliciano Ga Other [place] [employer] Other Start: 09-11-2021 Nursing evaluation o f patient and report Feliciano Ga [facility] [place] Start: 09-10-2021 Telephone encounter Feliciano Ga [facility] [place] Start: 09-10-2021 End: 09-11-[address] NELSY GA [facility] [employer] Other Start: 09-04-2021 End: 09-04-2021 ambulatory Feliciano Ga Other [place] [employer] Other Start: 09-04-2021 Telephone encounter Feliciano Ga [facility] [place] Start: 08-31-2021 End: 08-31-2021 ambulatory Feliciano Ga Other [facility] [employer] Other Start: 08-31-2021 Office outpatient visit 25 minutes Feliciano Ga [facility] [place] Start: 08-17-2021 End: 08-18-[address] TROY BRAMBILA . Facility:H1 Start: 08-13-2021 End: 08-14-[address] TROY BRAMBILA . Facility:H1 Start: 08-04-2021 Office outpatient visit 15 minutes Feliciano Ga Work Phone: [facility] 250 DO Work Phone: Start: 08-04-[address] Feliciano Ga Facility: Start: 07-28-2021 End: 07-28-[address] TROY BRAMBILA . Facility:H1 Start: 05-25-2021 End: 05-25-2021 ambulatory Feliciano Ga Other [employer] Other Start: 05-25-2021 Telephone encounter Feliciano Ga [facility] Start: 03-23-2021 Rx Renewal Feliciano Ga Work Phone: [facility] 250 DO Work Phone: Start: 03-11-2021 End: 03-11-2021 ambulatory Feliciano Ga Other [facility] [employer] Other Start: 03-11-2021 Telephone encounter Feliciano Ga [facility] Start: 03-05-2021 End: 03-05-2021 ambulatory Feliciano Ga Other [place] [employer] Other Start: 03-05-2021 Telephone encounter Feliciano Ga [facility] Start: 02-17-2021 Rx Renewal Feliciano Ga Work Phone: [facility] 250 DO Work Phone: Start: 01-19-2021 End: 01-19-2021 ambulatory Feliciano Ga Other [facility] [employer] Other Start: 01-19-2021 Office outpatient visit 25 minutes Feliciano Ga [facility] Start: 01-16-2021 Rx Renewal Feliciano Ga Work Phone: [facility] 250 DO Work Phone: Start: 01-13-2021 Rx Renewal Feliciano Ga Work Phone: [facility] 250A [place] Work Phone: Start: 01-05-2021 Office outpatient visit 15 minutes Feliciano Ga Work Phone: [facility] 250 DO Work Phone: Start: 01-05-2021 Patient encounter procedure Feliciano Ga Work Phone: [facility] 250 DO Work Phone: Start: 12-15-2016 End: 12-16-2016 Ambulatory [facility] Facility:[facility] Procedures Date Procedure Procedure Detail Performing Clinician [...] Feliciano Ga Work Phone: Comment on above: [facility]; Arthroplasty of knee Feliciano P Har[employer] Work Phone: Comment on above: 2016 and 2020; Arthroscopy of shoulder Bryandrés n P [employer] Work Phone: Cardiac catheterization Brya n P [employer] Work Phone: Epidural steroid injection B molly Louis Ga Work Phone: Procedure on back Feliciano P Neil ns Work Phone: Procedure on neck Feliciano P Ku ns Work Phone: Procedure on prostate Feliciano P [employer] Work Phone: Prosthetic arthropla sty of the hip Feliciano Ga Work Phone: Total replacement of hip Edmond amadou P [employer] Work Phone: Urine culture DO Feliciano Ga Work Phone: Plan of Treatment Date Care Activity Detail Author Start: 07-13-2023 FUV, Provider: Irineo Mcintyre, Status: Pen, Time: 9:40 AM FUV, Provider: Irineo Mcintyre, Status: Pen, Time: 9:40 AM [facility] 250 DO Work Phone: Start: 07-07-2022 FUV, Provider: Irineo Mcintyre, Status: Pen, Time: 9:20 AM FUV, Provider: Irineo Mcintyre, Status: Pen, Time: 9:20 AM [facility] 250 DO Work Phone: Start: 03-15-2022 FABI DOMINGUEZ, Provider : LEVAR MARES WHEEL BLOCKER 1,[id number], Status: Pen, Time: 10:30 AM HOLTER MON, Provider: LEVAR JAFFEY03 WHEEL BLOCKER 1,[id number], Status: Pen, Time: 10:30 AM [facility] 250 DO Work Phone: Start: 03-10-2022 FUV, Provider: Enedelia Mix, Status: Pen, Time: 2:30 PM FUV, Provider: Enedelia Mix, Status: Pen, Time: 2:30 PM [facility] 250 DO Work Phone: Start: 01-16-2022 [facility] Start: 01-12-2022 Referral to infectio us diseases physician [facility] Start: 01-09-2022 Referral to neurologist [facility] Start: 01-09-2022 Referral to General Medical Practitioner [facility] Start: 01-09-2022 Hospital admission [facility] Start: 01-09-2022 [facility] Start: 07-08-2021 FUV, Provider: Irineo Mcintyre, Status: Pen, Time: 9:50 AM [facility] 250 DO Work Phone: Start: 06-16-2021 FUV, Provider: Irineo Mcintyre, Status: Pen, Time: 9:30 AM FUV, Provider: Irineo Mcintyre, Status: Pen, Time: 9:30 AM [facility] 250 DO Work Phone: Anion gap measurement [facility] Work Phone: Bacteria identified in Urine by Culture Urine Culture [facility] Basophil count [facility] Work Phone: Basophil percent differential count [facility] Work Phone: Blood culture for bacteria, including anaerobic screen Blood Culture [facility] Calcium [Mass/volume ] in Serum or Plasma [facility] Work Phone: Carbon dioxide, tota l [Moles/volume] in Serum or Plasma [facility] Work Phone: Chloride [Moles/volu me] in Serum or Plasma [facility] Work Phone: Creatinine and Glome rular filtration rate.predicted panel - Serum, Plasma or Blood [facility] Work Phone: Eosinophil percent differential count [facility] Work Phone: Eosinophils [#/volum e] in Blood [facility] Work Phone: Erythrocyte mean corpuscular volume determination [facility] Work Phone: Erythrocytes [#/volu me] in Blood [facility] Work Phone: Glucose [Mass/volume ] in Serum or Plasma [facility] Work Phone: Hematocrit [Volume Fraction] of Blood [facility] Work Phone: Hemoglobin [Mass/vol ume] in Blood [facility] Work Phone: Hemoglobin distribut ion, width determination [facility] Work Phone: Leukocytes [#/volume ] in Blood [facility] Work Phone: Lymphocyte count [facility] Work Phone: Lymphocyte percent differential count [facility] Work Phone: Mean corpuscular hemoglobin concentration determination [facility] Work Phone: Mean corpuscular hemoglobin determination [facility] Work Phone: Measurement of renal function [facility] Work Phone: Monocyte count [facility] Work Phone: Monocyte percent differential count [facility] Work Phone: Neutrophil count [facility] Work Phone: Neutrophil percent differential count [facility] Work Phone: Patient referral [facility] Work Phone: Platelet mean volume determination [facility] Work Phone: Platelets [#/volume] in Blood [facility] Work Phone: Potassium [Moles/vol ume] in Serum or Plasma [facility] Work Phone: Sodium [Moles/volume ] in Serum or Plasma [facility] Work Phone: Urea nitrogen [Mass/volume] in Serum or Plasma [facility] Work Phone: Immunizations Immunization Date Immunization Notes Care Provider Chelsi calle 12-17-2022 influenza, high dose seasonal, preservative-free Feliciano Ga Other [employer] Other 12-24-2021 influenza, seasonal, injectable Feliciano Ga Other [employer] Other 12-24-2021 COVID-19 Moderna (BIvalent) Feliciano Ga Other [employer] Other 12-24-2021 Fluzone High-Dose Quadrivalent 0.7 ML Intramuscular Suspension Prefilled Syringe Feliciano Ga Work Phone: [facility] [employer] 250 DO Work Phone: 02-18-2021 Moderna COVID-19 Vaccine 100 MCG/0.5ML Intramuscular Suspension Feliciano Ga Work Phone: [facility] [employer] 250 DO Work Phone: 05-28-2020 Moderna COVID-19 Vaccine 100 MCG/0.5ML Intramuscular Suspension Feliciano P Har[employer] Work Phone: [facility] [employer] 250 DO Work Phone: 05-05-2020 COVID-19 Vaccine Moderna - Documentation Purposes Only Feliciano Ga Other [employer] Other 04-30-2020 Moderna COVID-19 Vaccine 100 MCG/0.5ML Intramuscular Suspension Feliciano Louis [employer] Work Phone: [facility] [employer] 250 DO Work Phone: 04-14-2020 Moderna COVID-19 Vaccine 100 MCG/0.5ML Intramuscular Suspension Feliciano Spencercatie Work Phone: [facility] [employer] DO Work Phone: 12-22-2019 Fluzone High-Dose Quadrivalent 0.7 ML Intramuscular Suspension Prefilled Syringe Feliciano Ga Work Phone: [facility] 12-06-2019 influenza, seasonal, injectable Feliciano Ga Work Phone: [facility] [employer] DO Work Phone: 11-22-2018 influenza, seasonal, injectable Feliciano Spencercatie Other [employer] Other 11-20-2018 Seasonal trivalent influenza vaccine, adjuvanted, preservative free Feliciano Ga Work Phone: [facility] [employer] DO Work Phone: 11-05-2018 influenza virus vaccine, unspecified formulation Feliciano Ga Work Phone: [facility] [employer] DO Work Phone: 12-06-2017 influenza, high dose seasonal, preservative-free Feliciano Spencers Work Phone: [facility] [employer] DO Work Phone: 12-05-2017 influenza, seasonal, injectable Feliciano aG Other [employer] Other 11-05-2017 influenza virus vaccine, unspecified formulation Feliciano Ga Work Phone: [facility] 250 DO Work Phone: 04-07-2016 influenza virus vaccine, unspecified formulation Feliciano Ga Work Phone: [facility] 250 DO Work Phone: 04-07-2016 pneumococcal conjuga te vaccine, 13 valent Feliciano Ga Work Phone: [place] [address] DO Work Phone: 01-24-2012 Kenalog 40/Xylocaine Feliciano glaser Other [facility] [employer] Other Payers Date Payer Category Payer Medicare 2022 Unknown 2021 Self-pay [id number] 2016 Medicare [id number] 1959 [facility] [id number] [id number]. 1958 Medicare [id number] 2.1 0.1.184312. 1941 Unknown [id number] 2. 840.1.288851.3.579.2. 1941 Unknown [id number] 2. 840.1.208631.3.579.2. 1941 Unknown [id number] 2. 840.1.703944.3.579.2. 1941 Unknown [id number] 2.16 840.1.612751.3.579.2. 1941 Unknown [id number] 2.16 840.1.778312.3.579.2. 1941 Unknown [id number] 2. 840.1.390403.3.579.2.2 Unknown [id number] 2.16. 840.1.931646.3.579.2.356 1941 Unknown [id number] 2.16. 840.1.843137.3.579.2.356 1941 Unknown [id number] 2.16. 840.1.585988.3.579.2.356 1941 Unknown [id number] 2.16.84 0.1.961420.3.579.2.593 1941 Unknown [id number] 2.16.84 0.1.458561.3.579.2.593 1941 Unknown [id number] 2.16.84 0.1.744105.3.579.2.593 1941 Unknown [id number] 2.16.84 0.1.097518.3.579.2.593 1941 Unknown [id number] 2.16.84 0.1.059658.3.579.2.593 1941 Unknown [id number] 2.16.84 0.1.856722.3.579.2.593 1941 Unknown [id number] 2.16.84 0.1.775595.3.579.2.593 1941 Unknown [id number] 2.16.84 0.1.480746.3.579.2.593 1941 Unknown [id number] 2.16.84 0.1.831231.3.579.2.593 1941 Unknown [id number] 2.16.84 0.1.824480.3.579.2.593 1941 Unknown [id number] 2.16.84 0.1.242374.3.579.2.593 1941 Unknown [id number] 2.16.84 0.1.011079.3.579.2.593 1941 Unknown [id number] 2.16.84 0.1.890913.3.579.2.593 1941 Unknown [id number] 2.16. 840.1.260591.3.579.2.196 1941 Unknown [id number] 2.16. 840.1.468091.3.579.2.196 Unknown [id number] 2.16.8 40.1.865388.3.579.2.531 Unknown [id number] 2.16.8 40.1.195326.3.579.2.531 Unknown [id number] 2.16.8 40.1.482807.3.579.2.531 Unknown [id number] 2.16.8 40.1.551072.3.579.2.531 Unknown [id number] 2.16.8 40.1.067217.3.579.2.531 Unknown [id number] 2.16.8 40.1.714539.3.579.2.531 Social History Date Type Detail Facility Daily alcohol use Daily alcohol use [facility] [place] [address] DO Work Phone: Comment on above: 1-2 beers; Coffee 2 cups daily; Quit smoking in 1979 ; Sex Assigned At Sex Assigned At Bir [facility] [employer] Other Start: 12-26-2019 End: 01-13-2022 Tobacco smoking status NHIS Ex-smoker (finding) [facility] Start: 1940 Sex Assigned At Male F [facility] Medical Equipment Procedure Code Equipment Code Equipment Origin al Text Equipment Identifier Dates Arthroplasty, knee, total, minimally invasive ART SURF LEFT [id number] FDA Start: 11-05-2019 Arthroplasty, knee, total, minimally invasive Orthopaedic cement, non-medicated [id number] FDA Start: 11-05-2019 Arthroplasty, knee, total, minimally invasive Uncoated knee femur prosthesis ()[id number] FDA Start: 11-05-2019 Arthroplasty, knee, total, minimally invasive Uncoated knee tibia prosthesis, metallic ()[id number] FDA Start: 11-05-2019 Arthroplasty, knee, total, minimally invasive Polyethylene patella prosthesis ()[id number] FDA Start: 11-05-2019 Arthroplasty, knee, total, minimally [...] status Patient is Pro gressing Toward Baseline [facility] Work Phone: Mental Status Date Assessment Result Facility 01-16-2022 Cognitive function Cognitive Sta tus Patient at Baseline [facility] Work Phone: Clinical Notes 05-23-2006 to 03-18-2023 Note Date & Type Note Facility 03-18-2023 Evaluation note Encounter Date Diagnosis Assessment Notes Mar, Lumbar degenerative disc disease (ICD-10 - M51.36) Patient is following with pain management at [place], had a recent branch block. He is [...] next visit. Patient does follow with Dr. Francisco Javier castillo. Mar, BPH (benign prostatic hyperplasia) (ICD-10 - [...] above medication. We will continue to monitor. [employer] Other 10-02-2023 Evaluation note* Encounter Date Diagnosis Assessment Notes Treatment Notes Treatment Clinical Notes Dec, Insomnia (ICD-10 - G47.00) [employer] Other 09-26-2023 Evaluation note* Encounter Date Diagnosis Assessment Notes Treatment Notes Treatment Clinical Notes Nov, Gout (ICD-10 - M10.9) [employer] Other 07-12-2023 Evaluation note* Encounter Date Diagnosis [...] the care of pain management out of [place]. States the pain is slightly improved and [...] to thin out the secretions. Rx sent [employer] Other 07-05-2023 Evaluation note* Encounter Date Diagnosis Assessment Notes Treatment Notes Treatment Clinical Notes Sep, Hyperlipidemia (ICD-10 - E78.5) Sep, Insomnia (ICD-10 - G47.00) Sep, Hypothyroidism, unspecified (ICD-10 - E03.9) [employer] Other 04-03-2023 Evaluation note* Encounter Date Diagnosis Assessment Notes Treatment Notes Treatment Clinical Notes Jun, Lumbar degenerative disc disease (ICD-10 - M51.36) I am in agreement the patient keep the above medication on hand to use sparingly for back pain and to continue following with Pain Management. The patient states he does still go to the [facility] for hunting trips with a [...] Screening for prostate cancer (ICD-10 - Z12.5) [employer] Other 03-28-2023 Evaluation note* Encounter Date Diagnosis Assessment Notes Treatment Notes Treatment Clinical Notes May, Insomnia (ICD-10 - G47.00) [employer] Other 03-07-2023 Evaluation note* Encounter Date Diagnosis Assessment Notes Treatment Notes Treatment Clinical Notes May, Atrial fibrillation (ICD-10 - I48.91) [employer] Other 02-09-2023 NoteCONSULTATION CONSULTATION DATE: 04/15/2022 HISTORY [...] in the clinic in [id number]* Encounter Date Diagnosis Assessment Notes Treatment Notes Treatment Clinical Notes Mar, Lumbar degenerative disc disease (ICD-10 - M51.36) Patient appears to be doing better with physcial therapy. I advised the patient to take the above pain medication as needed and is to continue to follow with Dr. Brabmila as scheduled. Patient is to discuss with Dr. Mcintyre tomorrow if he is safe to take the pain medication everyday as he does get relief. Mar, Actinic keratosis (ICD-10 - L57.0) Noted on the scalp. I advised the patient we can freeze this if this does become bothersome. Encouraged patient to wear a hat out in the sun. [facility] Other 12-29-2022 Evaluation note* Encounter Date Diagnosis Assessment Notes Treatment Notes Treatment Clinical Notes Feb, Insomnia (ICD-10 - G47.00) Feb, Hypothyroidism, unspecified (ICD-10 - E03.9) [facility] Other 12-28-2022 Evaluation note* Encounter Date Diagnosis Assessment Notes Treatment Notes Treatment Clinical Notes Feb, Insomnia (ICD-10 - G47.00) Feb, Hypothyroidism, unspecified (ICD-10 - E03.9) [facility] Other 12-15-2022 NoteCONSULTATION CONSULTATION DATE: 02/18/2022 HISTORY [...] move forward with the plan of care.[id number]* Encounter Date Diagnosis Assessment Notes Treatment Notes Treatment Clinical Notes Feb, Lumbar degenerative disc disease (ICD-10 - M51.36) Daughter feels that patient was doing quite well while he was getting daily PT at [facility], however now that he has home has [...] upon examination, continue using the above powder. [facility] Other 11-11-2022 Progress note Author Raji Ennis [facility] January 15, 2022 4:51pm Note Date/Time January 15, 2022 4:51pm [facility] [address] [place] [address] Hospitalist Progress Note Signed Patient: Irineo Wallis Jr MR# : [id number] : 1940 Acct:[id number] Age/Sex: 81 / M Adm Date: 2 Loc: Room: [address] [place] [address] Type: ADM IN Attending Dr: Raji Ennis [...] mg 01/09/22 14:41 Bisacodyl 10 Mg Supp.Rect [place] 01/09/23 14:40 DAILY PRN Constipation Bisacodyl 10 [...] Propionate 1 spray 01/09/22 15:17 Fluticasone Propionate [place] 120 [place]/16 Gm Bottle NARES-BOTH 01/09/23 15:16 QHS PRN [...] tomorrow. Documented By: Raji Ennis MD 01/15/22 1640 Signed By: <Electronically signed by Raji Ennis MD> 01/15/22 1651 [facility] Work Phone: 1(576) 227-195811-11-2022 Progress note Author Victor Manuel Reynolds [facility] January 15, 2022 12:21pm Note Date/Time January 15, 2022 12:21pm [facility] [address] [place] [address] Infect. Disease Progress Note Signed Patient: Irineo Wallis Jr MR# : [id number] : 1940 Acct:[id number] Age/Sex: 81 / M Adm Date: 2 Loc: Room: [address] [place] [address] Type: ADM IN Attending Dr: Raji Ennis [...] 5 Mg Tablet) 5 mg PO BID [facility], [facility] Stop: 01/09/23 20:59 Last Admin: 01/15/22 08:46 Dose: 5 mg Atorvastatin Calcium (Atorvastatin 40 Mg Tablet) 40 mg PO QHS [facility], [facility]1983 Stop: 01/09/23 21:59 Last Admin: 01/14/22 21:32 Dose: 40 mg Bisacodyl (Bisacodyl 10 Mg Supp.Rect) 10 mg [place] DAILY PRN PRN Reason: Constipation Stop: 01/09/23 14:40 Bisacodyl (Bisacodyl 5 Mg Tablet.Dr) 10 mg PO DAILY PRN PRN Reason: Constipation Stop: 01/09/23 14:40 Last Admin: 01/14/22 19:57 Dose: 10 mg Bumetanide (Bumetanide 1 Mg Tablet) 1 mg PO DAILY@0800 [facility], [facility]1983 Stop: 01/14/23 15:59 Last Admin: 01/15/22 08:46 Dose: 1 mg Docusate Sodium (Docusate 100 Mg Capsule) 100 mg PO BID [facility], [facility]1983 Stop: 01/09/23 20:59 Last Admin: 01/15/22 08:46 Dose: 100 mg Fluticasone Propionate (Fluticasone Propionate [place] 120 [place]/16 Gm Bottle) 1 spray NARES-BOTH QHS PRN PRN Reason: Nasal Congestion Stop: 01/09/23 15:16 Magnesium Sulfate (Magnesium Sulf 2gm-*Swfi*) 2 gm in 50 mls @ 25 mls/hr IV DAILY PRN PRN Reason: Magnesium Level < 1.5 Stop: 01/09/23 14:40 Levothyroxine Sodium (Levothyroxine 150 Mcg Tablet) 150 mcg PO DAILY@0630 [facility], [facility]1983 Stop: 01/10/23 06:29 Last Admin: 01/15/22 06:38 Dose: Not Given Magnesium Hydroxide (Magnesium Hydroxide Susp 30 Ml Udc) 30 ml PO BID PRN PRN Reason: Constipation Stop: 01/09/23 14:40 Magnesium Oxide (Magnesium Oxide 400 Mg Tablet) 400 mg PO DAILY [facility], [facility]1983 Stop: 01/10/23 08:59 Last Admin: 01/15/22 08:46 Dose: 400 mg Nitroglycerin (Nitroglycerin 0.4 Mg Tab.Subl) 0.4 mg SUBLINGUAL Q5MIN.X3 PRN PRN Reason: Chest Pain Stop: 01/09/23 14:40 Pom Eszopiclone 3 Mg (Tablet) 3 mg PO HS [facility], [facility]1983 Stop: 01/11/23 21:59 Last Admin: 01/14/22 21:32 Dose: 3 mg Nystatin (Nystatin 100,000 Unit/Gram Powder 15 Gm Bottle) 1 applic TOPICAL TID ANIBAL Stop: 01/09/23 21:59 Last Admin: 01/15/22 08:46 [...] 20 Meq Tab.Er.Prt) 20 meq PO QPM [facility], [facility]1983 Stop: 01/09/23 20:59 Last Admin: 01/14/22 21:32 Dose: 20 meq Sodium Chloride (Sodium Chloride 0.9 % 10 Ml Syringe) 0 ml IV-PUSH PRN PRN PRN Reason: Flush Stop: 01/09/23 09:37 Last Admin: 01/10/22 23:31 Dose: 10 ml Sodium Chloride (Sodium Chloride 0.9 % 10 Ml Syringe) 0 ml IV-PUSH QSHIFT [facility], [facility]1983 Stop: 01/09/23 21:59 Last Admin: 01/15/22 06:38 [...] signed by MD Victor Manuel Reynolds> 01/15/221 [facility] Work Phone: [phone] 372-814011-10-2022 Progress note Author Raji Ennis [facility] January 14, 2022 5:43pm Note Date/Time January 14, 2022 5:43pm [facility] [address] [place] [address] Hospitalist Progress Note Signed Patient: Irineo Wallis Jr MR# : [id number] : 1940 Acct:[id number] Age/Sex: 81 / M Adm Date: 2 Loc: Room: [address] [place] [address] Type: ADM IN Attending Dr: Raji Ennis [...] mg 01/09/22 14:41 Bisacodyl 10 Mg Supp.Rect FL 01/09/23 14:40 DAILY PRN Constipation Bisacodyl 10 [...] Propionate 1 spray 01/09/22 15:17 Fluticasone Propionate [place] 120 [place]/16 Gm Bottle NARES-BOTH 01/09/23 15:16 QHS PRN [...] <Electronically signed by Raji Ennis MD> 01/14/221742 [facility] Work Phone: [phone] Progress note Author Victor Manuel Reynolds [facility] January 14, 2022 9:39am Note Date/Time January 14, 2022 9:39am [facility] [address] [place] [address] Infect. Disease Progress Note Signed Patient: Irineo Wallis Jr MR# : [id number] : 1940 Acct:[id number] Age/Sex: 81 / M Adm Date: 2 Loc: Room: [address] [place] [address] Type: ADM IN Attending Dr: Raji Ennis [...] Appearance Clear Urine pH 5.5 Ur Specific [place] 1.012 Urine Protein 30 H Urine Glucose [...] or fever Stop: 01/09/23 14:40 Last Admin: 11/09/22 21:26 Dose: 650 mg Allopurinol (Allopurinol 300 Mg Tablet) 300 mg PO DAILY [facility]1983 Stop: 01/10/23 08:59 Last Admin: 01/14/22 08:04 Dose: 300 mg Apixaban (Apixaban 5 Mg Tablet) 5 mg PO BID ANIBAL Stop: 01/09/23 20:59 Last Admin: 01/14/22 08:04 Dose: 5 mg Atorvastatin Calcium (Atorvastatin 40 Mg Tablet) 40 mg PO QHS ANIBAL Stop: 01/09/23 21:59 Last Admin: 01/13/22 21:26 Dose: 40 mg Bisacodyl (Bisacodyl 10 Mg Supp.Rect) 10 mg FL DAILY PRN PRN Reason: Constipation Stop: 01/09/23 14:40 Bisacodyl (Bisacodyl 5 Mg Tablet.Dr) 10 mg PO DAILY PRN PRN Reason: Constipation Stop: 01/09/23 14:40 Last Admin: 01/13/22 21:26 Dose: 10 mg Bumetanide (Bumetanide 1 Mg Tablet) 1 mg PO BID@0800,1600 [facility], [facility]1983 Stop: 01/13/23 15:59 Docusate Sodium (Docusate 100 Mg Capsule) 100 mg PO BID [facility]1983 Stop: 01/09/23 20:59 Last Admin: 01/14/22 08:03 Dose: 100 mg Fluticasone Propionate (Fluticasone Propionate [place] 120 [place]/16 Gm Bottle) 1 spray NARES-BOTH QHS PRN PRN Reason: Nasal Congestion Stop: 01/09/23 15:16 Magnesium Sulfate (Magnesium Sulf 2gm-*Swfi*) 2 gm in 50 mls @ 25 mls/hr IV DAILY PRN PRN Reason: Magnesium Level < 1.5 Stop: 01/09/23 14:40 Cefepime HCl (Maxipime) 2 gm in 50 mls @ 100 mls/hr IV Q12H [facility] Last Admin: 01/14/22 03:05 Dose: 100 mls/hr Vancomycin HCl 1.25 gm/ (Dextrose) 275 mls @ 183.333 mls/hr IV Q24H [facility]1983 Stop: 01/13/23 18:59 Last Infusion: 01/13/22 21:17 Dose: Infused Levothyroxine Sodium (Levothyroxine 150 Mcg Tablet) 150 mcg PO DAILY@0630 ANIBAL Stop: 01/10/23 06:29 Last Admin: 01/14/22 05:54 [...] 20 Meq Tab.Er.Prt) 20 meq PO QPM [facility]1983 Stop: 01/09/23 20:59 Last Admin: 01/13/22 21:26 [...] limits Documented By: Victor Manuel Reynolds MD 01/14/22 0935 Signed By: <Electronically signed by MD Victor Manuel Reynolds> 01/14/22 0939 [facility] Work Phone: [phone]) 329-280111-09-2022 Progress note Author Mani Dickens [facility] January 13, 2022 6:10pm Note Date/Time January 13, 2022 8 :13am [facility] [address] [place] [address] Neurology Progress Note Signed with Addenda Patient: Irineo Wallis Jr MR# : [id number] : 1940 Acct:[id number] Age/Sex: 81 / M Adm Date: 2 Loc: Room: [address] [place] [address] Type: ADM IN Attending Dr: Raji Ennis [...] extremities * Unable to test finger-nose or jfci-yg-qful due to drowsiness REFLEX EXAM: * 1/4 [...] Therapy Recommendations: OT Recommendations OT Recommended Discharge Nursing Home Facility Location OT Recommended Services at Physical Therapy,Occupational Therapy Discharge PT Recommendations PT Recommended Discharge Nursing Home Facility Location PT Recommended Services at Physical [...] falls Status: Acute Documented By: MEI Tristan 808 Signed By: <Electronically signed by MEI Knight> 01/13/22 1520 [facility] Work Phone: [phone] Progress note Author Raji Ennis [facility] January 13, 2022 3:44pm Note Date/Time January 13, 2022 3 :27pm [facility] [address] [place] [address] Hospitalist Progress Note Signed Patient: Irineo Wallis Jr MR# : [id number] : 1940 Acct:[id number] Age/Sex: 81 / M Adm Date: 2 Loc: Room: [address] [place] [address] Type: ADM IN Attending Dr: Raji Ennis [...] mg 01/09/22 14:41 Bisacodyl 10 Mg Supp.Rect FL 01/09/23 14:40 DAILY PRN Constipation Bisacodyl 10 [...] Propionate 1 spray 01/09/22 15:17 Fluticasone Propionate [place] 120 [place]/16 Gm Bottle NARES-BOTH 01/09/23 15:16 QHS PRN [...] <Electronically signed by Raji Ennis MD> 01/13/22 1543 [facility] Work Phone: [phone] Consult note Author Victor Manuel Reynolds [facility] January 13, 2022 10:45am Note Date/Time January 13, 2022 1 0:45am [facility] [address] [place] [address] Infect. Disease Consult Note Signed Patient: Irineo Wallis Jr MR# : [id number] : 1940 Acct:[id number] Age/Sex: 81 / M Adm Date: 2 Loc: Room: [address] [place] [address] Type: ADM IN Attending Dr: Raji Ennis [...] negative unless noted below or in HPI [facility] Attestation Statement: The following information was [...] 300 Mg Tablet) 300 mg PO DAILY [facility], [facility]1983 Stop: 01/10/23 08:59 Last Admin: 01/13/22 09:43 Dose: 300 mg Apixaban (Apixaban 5 Mg Tablet) 5 mg PO BID [facility], [facility]1983 Stop: 01/09/23 20:59 Last Admin: 01/13/22 09:43 Dose: 5 mg Atorvastatin Calcium (Atorvastatin 40 Mg Tablet) 40 mg PO QHS [facility]1983 Stop: 01/09/23 21:59 Last Admin: 01/12/22 22:51 Dose: 40 mg Bisacodyl (Bisacodyl 10 Mg Supp.Rect) 10 mg FL DAILY PRN PRN Reason: Constipation Stop: 01/09/23 14:40 Bisacodyl (Bisacodyl 5 Mg Tablet.Dr) 10 mg PO DAILY PRN PRN Reason: Constipation Stop: 01/09/23 14:40 Last Admin: 01/12/22 08:22 Dose: 10 mg Bumetanide (Bumetanide 1 Mg/4 Ml Vial) 1 mg IV-PUSH BID@0800,1600 [facility], [facility]1983 Stop: 01/13/23 07:59 Last Admin: 01/13/22 09:43 Dose: 1 mg Docusate Sodium (Docusate 100 Mg Capsule) 100 mg PO BID [facility]1983 Stop: 01/09/23 20:59 Last Admin: 01/13/22 09:43 Dose: 100 mg Fluticasone Propionate (Fluticasone Propionate [place] 120 [place]/16 Gm Bottle) 1 spray NARES-BOTH QHS PRN PRN Reason: Nasal Congestion Stop: 01/09/23 15:16 Magnesium Sulfate (Magnesium Sulf 2gm-*Swfi*) 2 gm in 50 mls @ 25 mls/hr IV DAILY PRN PRN Reason: Magnesium Level < 1.5 Stop: 01/09/23 14:40 Cefepime HCl (Maxipime) 2 gm in 50 mls @ 100 mls/hr IV Q12H [facility] Last Admin: 01/13/22 03:07 Dose: 100 mls/hr Levothyroxine Sodium (Levothyroxine 150 Mcg Tablet) 150 mcg PO DAILY@0630 [facility]1983 Stop: 01/10/23 06:29 Last Admin: 01/13/22 06:26 Dose: 150 mcg Magnesium Hydroxide (Magnesium Hydroxide Susp 30 Ml Udc) 30 ml PO BID PRN PRN Reason: Constipation Stop: 01/09/23 14:40 Magnesium Oxide (Magnesium Oxide 400 Mg Tablet) 400 mg PO DAILY [facility]1983 Stop: 01/10/23 08:59 Last Admin: 01/13/22 09:43 Dose: 400 mg Nitroglycerin (Nitroglycerin 0.4 Mg Tab.Subl) 0.4 mg SUBLINGUAL Q5MIN.X3 PRN PRN Reason: Chest Pain Stop: 01/09/23 14:40 Pom Eszopiclone 3 Mg (Tablet) 3 mg PO HS [facility]1983 Stop: 01/11/23 21:59 Last Admin: 01/12/22 22:51 Dose: 3 mg Nystatin (Nystatin 100,000 Unit/Gram Powder 15 Gm Bottle) 1 applic TOPICAL TID [facility]1983 Stop: 01/09/23 21:59 Last Admin: 01/13/22 09:43 [...] 20 Meq Tab.Er.Prt) 20 meq PO QPM [facility]1983 Stop: 01/09/23 20:59 Last Admin: 01/12/22 22:51 [...] signed by MD Victor Manuel Reynolds> 01/13/22 1047 [facility] Work Phone: [phone] 449-220311-08-2022 Progress note Author W Be Francisco Javier [facility] January 12, 2022 6:11pm Note Date/Time January 12, 2022 6 :11pm [facility] [address] [place] [address] Cardiology Progress Note Signed Patient: Irineo Wallis Jr MR# : [id number] : 1940 Acct:[id number] Age/Sex: 81 / M Adm Date: 2 Loc: Room: [address] [place] [address] Type: ADM IN Attending Dr: Raji Ennis [...] % (Auto) 76.3 Lymph % (Auto) 12.2 Mora % (Auto) 9.1 Eos % (Auto) 1.9 Baso % (Auto) 0.5 Neut # (Auto) 7.7 Lymph # (Auto) 1.2 Mora # (Auto) 0.9 H Eos # (Auto) [...] 2.9 Globulin (PEP) 2.4 Albumin/Globulin (PEP) 1.2 Adfcz-4-Vsezhotni 0.4 Zusgi-8-Wizpvkvld 0.7 Beta Globulins 0.6 L Gamma Globulins 0.8 M-Franky Not observed PEP Note IgG 816 IgA 171 IgM 105 Serum Immunofixation 01/12/22 06:42 Corrected WBC Uncorrected WBC Count RBC Hgb Hct MCV MCH MCHC RDW Plt Count MPV Neut % (Auto) Lymph % (Auto) [place] % (Auto) Eos % (Auto) Baso % (Auto) Neut # (Auto) Lymph # (Auto) Mora # (Auto) Eos # (Auto) Baso # (Auto) Nucleated RBC % (auto) PHA Creatinine Clear Sodium Potassium Chloride Carbon Dioxide Anion Gap BUN Creatinine Est GFR ( Amer) Est GFR (Non-Af Amer) Glucose Calcium C-Reactive Prot, Quant 8.4 H Serum Total Protein Albumin (Send Out) Globulin (PEP) Albumin/Globulin (PEP) Mepgf-8-Mulhbszke Etnte-1-Trpcflpfl Beta Globulins Gamma Globulins M-Franky PEP Note [...] <Electronically signed by Bhupinder Mcintyre DO> 01/12/22 7919 [facility] Work Phone: [phone] Progress note Author Raji [facility] January 12, 2022 4:38pm Note Date/Time January 12, 2022 4 :38pm [facility] [address] [place] [address] Hospitalist Progress Note Signed Patient: Irineo Wallis Jr MR# : [id number] : 1940 Acct:[id number] Age/Sex: 81 / M Adm Date: 2 Loc: Room: [address] [place] [address] Type: ADM IN Attending Dr: Raji Ennis [...] mg 01/09/22 14:41 Bisacodyl 10 Mg Supp.Rect FL 01/09/23 14:40 DAILY PRN Constipation Bisacodyl 10 [...] Propionate 1 spray 01/09/22 15:17 Fluticasone Propionate [place] 120 [place]/16 Gm Bottle NARES-BOTH 01/09/23 15:16 QHS PRN [...] prophylaxis Documented By: Raji Ennis MD 01/12/22 163 Signed By: <Electronically signed by Raji Ennis MD> 01/12/22 1869 [facility] Work Phone: [phone] Progress note Author Mani Dickens [facility] January 12, 2022 4:10pm Note Date/Time January 12, 2022 8 :19am [facility] [address] [place] [address] Neurology Progress Note Signed Patient: Irineo Wallis Jr MR# : [id number] : 1940 Acct:[id number] Age/Sex: 81 / M Adm Date: 2 Loc: Room: [address] [place] [address] Type: ADM IN Attending Dr: Raji Ennis [...] extremities * Unable to test finger-nose or olyo-we-gbpe due to drowsiness REFLEX EXAM: * 1/4 [...] Therapy Recommendations: OT Recommendations OT Recommended Discharge Nursing Home Facility Location OT Recommended Services at Physical Therapy,Occupational Therapy Discharge PT Recommendations PT Recommended Discharge Nursing Home Facility Location PT Recommended Services at Physical [...] the plan of care and 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 The patient is an 81-year-old man [...] signed by MD Mani Dickens> 01/12/22 1610 [facility] Work Phone: [phone] 141-644111-07-2022 Progress note Author Raji Ennis [facility] January 11, 2022 5:04pm Note Date/Time January 11, 2022 5 :04pm [facility] [address] [place] [address] Hospitalist Progress Note Signed Patient: Irineo Wallis Jr MR# : [id number] : 1940 Acct:[id number] Age/Sex: 81 / M Adm Date: 2 Loc: Room: [address] [place] [address] Type: ADM IN Attending Dr: Raji Ennis [...] mg 01/09/22 14:41 Bisacodyl 10 Mg Supp.Rect FL 01/09/23 14:40 DAILY PRN Constipation Bisacodyl 10 [...] Propionate 1 spray 01/09/22 15:17 Fluticasone Propionate [place] 120 [place]/16 Gm Bottle NARES-BOTH 01/09/23 15:16 QHS PRN [...] prophylaxis Documented By: Raji Ennis MD 01/11/22 3076 Signed By: <Electronically signed by Raji Ennis MD> 01/11/22 5440 [facility] Work Phone: [phone] Progress note Author Mani Dickens [facility] January 11, 2022 5:02pm Note Date/Time January 11, 2022 8 :55am [facility] [address] [place] [address] Neurology Progress Note Signed Patient: Irineo Wallis Jr MR# : [id number] : 1940 Acct:[id number] Age/Sex: 81 / M Adm Date: 2 Loc: Room: [address] [place] [address] Type: ADM IN Attending Dr: Raji Ennis [...] knee to all modalities. 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 The patient is an 81-year-old man [...] <Electronically signed by MD Mani Dickens> 01/11/22 1700 [facility] Work Phone: [phone] 308-822111-07-2022 Progress note Author W Be Mcintyre [facility] January 11, 2022 2:09pm Note Date/Time January 11, 2022 2 :09pm [facility] [address] [place] [address] Cardiology Progress Note Signed Patient: Irineo Wallis Jr MR# : [id number] : 1940 Acct:[id number] Age/Sex: 81 / M Adm Date: 2 Loc: 3T Room: [address] [place] [address] Type: ADM IN Attending Dr: Raji Ennsi MD Copies to: ~ Date of Service: [...] % (Auto) 73.8 Lymph % (Auto) 13.7 Mora % (Auto) 9.6 Eos % (Auto) 2.2 Baso % (Auto) 0.7 Neut # (Auto) 6.3 Lymph # (Auto) 1.2 [place] # (Auto) 0.8 Eos # (Auto) 0.2 [...] signed by Bhupinder Mcintyre DO> 01/11/22 1409 [facility] Work Phone: 1([phone]) [phone] Progress note Author Dharmesh Zavala [facility] January 10, 2022 8:54pm Note Date/Time January 10, 2022 8 :54pm [facility] [address] [place] [address] Hospitalist Progress Note Signed Patient: Irineo Wallis Jr MR# : [id number] : 1940 Acct:[id number] Age/Sex: 81 / M Adm Date: 2 Loc: Room: [address] [place] [address] Type: ADM IN Attending Dr: Dharmesh Zavala DO Copies to: ~ Date of Service: 01/10/2022 Subjective Subjective Narrative: When I entered the room the patient tells me that he is getting a pain in the thighs on the top of his legs. He does mention that the people in [place] told me that was due to [...] mg 01/09/22 14:41 Bisacodyl 10 Mg Supp.Rect [place] 01/09/23 14:40 DAILY PRN Constipation Bisacodyl 10 mg 01/09/22 14:41 Bisacodyl 5 Mg Tablet.Dr PO 01/09/23 14:40 DAILY PRN Constipation Bumetanide 1 mg 01/09/22 15:30 01/10/22 14:42 Bumetanide 1 Mg/4 Ml Vial IV-PUSH 01/09/23 15:29 1 mg Q8H ANIBAL Administration Docusate Sodium 100 mg 01/09/22 21:00 01/10/22 08:58 Docusate 100 Mg Capsule PO 01/09/23 20:59 Not Given BID [facility] Fluticasone Propionate 1 spray 01/09/22 15:17 Fluticasone Propionate [place] 120 [place]/16 Gm Bottle NARES-BOTH 01/09/23 15:16 QHS PRN [...] Tablet PO 01/10/23 06:29 150 mcg DAILY@0630 [facility] Administration Magnesium Hydroxide 30 ml 01/09/22 14:41 Magnesium Hydroxide Susp 30 Ml Udc PO 01/09/23 14:40 BID PRN Constipation Magnesium Oxide 400 mg 01/10/22 09:00 01/10/22 08:58 Magnesium Oxide 400 Mg Tablet PO 01/10/23 08:59 400 mg DAILY [facility]1983 Administration Nitroglycerin 0.4 mg 01/09/22 14:41 Nitroglycerin 0.4 Mg Tab.Subl SUBLINGUAL 01/09/23 14:40 Q5MIN.X3 PRN Chest Pain Non-Formulary Medication 3 mg 01/09/22 22:00 Eszopiclone PO 01/09/23 21:59 HS [facility]1983 Nystatin 1 applic 01/09/22 22:00 01/10/22 14:42 [...] <Electronically signed by Dharmesh Zavala DO> 01/10/222053 [facility] Work Phone: [phone] Consult note Author Vikas Mane [facility] January 10, 2022 12:35pm Note Date/Time January 10, 2022 9 :20am [facility] [address] [place] [address] Neurology Consult Note Signed Patient: Irineo Wallis Jr MR# : [id number] : 1940 Acct:[id number] Age/Sex: 81 / M Adm Date: 2 Loc: Room: [address] [place] [address] Type: ADM IN Attending Dr: Dharmesh Zavala DO Copies to: DO Feliciano Pollock DO Kristopher L Lindbloom, DO~ HPI Consult Date: 01/10/22 Research Clerk: Vikas Mane DO PMFSH Vaccinated for COVID-19?: [...] Esa Cardoso M.D.01/09/2022 10:11 AM Dictation Location: [place] [address] Renal Ultrasound 01/10/22 05:00 IMPRESSION: No hydronephrosis. Impression dictated by: Esa Cardoso M.D.01/10/2022 9:07 AM Dictation Location: [place] [address] Assessment/Plan (1) Falls frequently: Assessment/Problem Details: HPI: [...] rapidly alternating movements. No limb dysmetria with nixrgs-wdfy-xggjmp testing. DATA REVIEW: MRI lumbar spine from [...] Acute Documented By: Vikas Mane DO 01/10/22 0598 Signed By: <Electronically signed by Vikas Mane DO> 01/10/22 7500 [facility] Work Phone: [phone] Consult note Author Marv Drew [facility] January 10, 2022 11:32am Note Date/Time January 10, 2022 1 1:32am [facility] [address] [place], [place] [address] Cardiology Consult Note Signed Patient: Irineo Wallis Jr MR# : [id number] : 1940 Acct:[id number] Age/Sex: 81 / M Adm Date: 2 Loc: Room: [address] [place] [address] Type: ADM IN Attending Dr: Dharmesh Zavala DO Copies to: DO Marv Catalan MD, [facility] Dharmesh Zavala, ~ Cardiology HPI History of [...] x10E3/uL Lymph # (Auto) 1.0 (1.00-4.8) x10E3/uL Mora # (Auto) 1.0 H (0.0-0.8) x10E3/uL Eos [...] Bradycardia, unspecified Documented By: Marv Drew MD, [facility] 2 1125 Signed By: <Electronically signed by MD DONALD Drew> 01/10/22 1132 [facility] Work Phone: 1(991) 476-642811-05-2022 History and physical note Author Dharmesh Zavala [facility] January 09, 2022 3:30pm Note Date/Time January 09, 2022 3 :30pm [facility] [address] [place] [address] Hospitalist H&P Signed Patient: Irineo Wallis Jr MR# : [id number] : 1940 Acct:[id number] Age/Sex: 81 / M Adm Date: 2 Loc: Room: 3Q2000-6 Type: ADM IN Attending Dr: Dharmesh Zavala DO Copies to: Feliciano Ga,DO Dharmesh Zavala, DO~ HPI DATE OF EXAMINATION: 01/09/22 CHIEF COMPLAINT: [...] that he had seen a urologist in [place] recently. Patient used to be on a number of prostate medications but apparently they were stopped because they are not doing what they are supposed to be doing. The patient andhis daughter have a discussion about what urology was doing for the situation without finding a specific answer. Patient also describes that he has been veryconstipated lately and takes an unspecified eygv-doj-jcvnxbz generic stool softener. His daughter does point [...] radiofrequency ablations by pain management doctor in [place]. Review of Systems Review of Systems Review [...] % (Auto) 13.5 % (.) 01/09/22 10:36 Mora % (Auto) 14.2 % (.) 01/09/22 10:36 Eos % (Auto) 0.1 % (.) 01/09/22 10:36 Baso % (Auto) 1.0 % (.) 01/09/22 10:36 Neut # (Auto) 4.3 x10E3/uL (1.8-7.7) 01/09/22 10:36 Lymph # (Auto) 0.8 x10E3/uL (1.00-4.8) L 01/09/22 10:36 Mora # (Auto) 0.9 x10E3/uL (0.0-0.8) H 01/09/22 [...] pH 5.5 (5.0-9.0) 01/09/22 12:42 Ur Specific [place] 1.018 (1.001-1.030) 01/09/22 12:42 Urine Protein Trace [...] lumbar spine. Documented By: Dharmesh Zavala DO [id number] Signed By: <Electronically signed by Dharmesh Zavala DO> 01/09/22 1530 [facility] Work Phone: 1(142) 265-156311-03-2022 Evaluation note* Encounter Date Diagnosis Assessment Notes [...] in a week to re-evaluate the area. [facility] Other 10-21-2022 Evaluation note* Encounter Date Diagnosis Assessment Notes Treatment Notes Treatment Clinical Notes Dec, Lower extremity edema (ICD-10 - R60.0) [facility] Other 10-13-2022 NoteCONSULTATION CONSULTATION DATE: 12/17/2021 HISTORY [...] next refill, we will change it to [place] 5/325 daily p.r.n. and the patient is encouraged to increase oral fluids and to continue with his stool softener on a daily basis. Heat education was discussed with the patient, as far as frequency and consistency. We will see him in three months' time, unless otherwise indicated, and all questions answered today.[id number] NoteCONSULTATION CONSULTATION DATE: 11/12/2021 HISTORY OF PRESENT [...] followed up in the office post procedure.[facility] [id number] Evaluation note* Encounter Date Diagnosis Assessment Notes Treatment Notes Treatment Clinical Notes Oct, Atrial fibrillation (ICD-10 - I48.91) Blood pressure upon check in is WNL. He is to follow with cardiology as scheduled. Refill provided for the klvicenta-con. Oct, CHF (congestive heart failure) (ICD-10 - I50.9) Patient reports continued swelling despite the Bumex. He does not take this daily but admits he took it every day for three days in a row and lost 9lbs. He was instructed to take a 1/2 tablet every day in hopes to manage his swelling better. He voiced understanding. [facility] Other 07-25-2022 Evaluation note* Encounter Date Diagnosis Assessment Notes Treatment Notes Treatment Clinical Notes Sep, CHF (congestive heart failure) (ICD-10 - I50.9) [facility] Other 07-08-2022 Evaluation note* Encounter Date Diagnosis Assessment Notes Treatment Notes Treatment Clinical Notes Sep, CHF (congestive heart failure) (ICD-10 - I50.9) Patient is to hold bumex until re-evaluated in one month per Dr. Feliciano Ga. [facility] Other 07-07-2022 Evaluation note* Encounter Date Diagnosis Assessment Notes Treatment Notes Treatment Clinical Notes Sep, Atrial fibrillation (ICD-10 - I48.91) [facility] Other 07-01-2022 Evaluation note* Encounter Date Diagnosis Assessment Notes Treatment Notes Treatment Clinical Notes Sep, Insomnia (ICD-10 - G47.00) Sep, Gout (ICD-10 - M10.9) [facility] Other 06-27-2022 Evaluation note* Encounter Date Diagnosis [...] is in AF today. He did see cap parts cutter a few weeks ago and is stable [...] continue with current medications at this time. [facility] Other 06-09-2022 NoteCONSULTATION CONSULTATION DATE: 08/13/2021 This [...] in three months' time unless otherwise indicated. [facility] Signed and Approved by: MONSERRAT RODARTE . 08/20/2021 16:02:00[facility]03-21-2022 Evaluation note* Encounter Date Diagnosis Assessment Notes Treatment Notes Treatment Clinical Notes May, Insomnia (ICD-10 - G47.00) [facility] Other 01-05-2022 Evaluation note* Encounter Date Diagnosis Assessment Notes Treatment Notes Treatment Clinical Notes Mar, Atrial fibrillation (ICD-10 - I48.91) [facility] Other 12-30-2021 Evaluation note* Encounter Date Diagnosis Assessment Notes Treatment Notes Treatment Clinical Notes Feb, Insomnia (ICD-10 - G47.00) [facility] Other 11-15-2021 Evaluation note* Encounter Date Diagnosis [...] Screening for prostate cancer (ICD-10 - Z12.5) [facility] Other 03-19-2007 History general Narrative - Reported* Type Description Date Medical History EKG 05-23-2006 Medical History MRI Lumbar Spine 01-13-11; [facility] Medical History 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 Lezama 11/05/19 Hospitalization History [facility]- CHF, A-Fib 04/2016 [facility] Other Consult note Author Vikas Mane [facility] January 10, 2022 12:35pm Note Date/Time January 10, 2022 9 :20am [facility] [address] [place] [address] Neurology Consult Note Signed Patient: Irineo Wallis Jr MR# : [id number] : 1940 Acct:[id number] Age/Sex: 81 / M Adm Date: 2 Loc: Room: [address] [place] [address] Type: ADM IN Attending Dr: Dharmesh Zavala DO Copies to: DO Feliciano Pollock DO Kristopher L Lindbloom, DO~ HPI Consult Date: 01/10/22 Research Clerk: Vikas Mane DO [facility] Vaccinated for COVID-19?: Yes Medical History [...] Esa Cardoso M.D.01/09/2022 1:11 PM Dictation Location: [facility]--[address] 01/09/22 09:47 IMPRESSION: No fracture. Thoracic spondylosis. Moderate right and small left pleural effusions. Impression dictated by: Esa Cardoso M.D.01/09/2022 1:06 PM Dictation Location: [facility]--12 Chest X-Ray 01/09/22 09:48 IMPRESSION: Developing groundglass parenchymal densities greater on the RIGHT. Consider pulmonary edema. Impression dictated by: Esa Cardoso M.D.01/09/2022 10:11 AM Dictation Location: [facility]-03 Renal Ultrasound 01/10/22 05:00 IMPRESSION: No hydronephrosis. Impression dictated by: Esa Cardoso M.D.01/10/2022 9:07 AM Dictation Location: [place] [address] Assessment/Plan (1) Falls frequently: Assessment/Problem Details: HPI: [...] rapidly alternating movements. No limb dysmetria with fxrswj-nrig-unijtw testing. DATA REVIEW: MRI lumbar spine from [...] signed by Vikas Mane DO> 01/10/22 1235 [facility] Work Phone: Consult note Author Marv Drew [facility] January 10, 2022 11:32am Note Date/Time January 10, 2022 1 1:32am [facility] [address] [place] [address] Cardiology Consult Note Signed Patient: Irineo Wallis Jr MR# : [id number] : 1940 Acct:[id number] Age/Sex: 81 / M Adm Date: 2 Loc: Room: [address] [place] [address] Type: ADM IN Attending Dr: Dharmesh Zavala [...] He has adequate social support at home. [facility] Vaccinated for COVID-19?: Yes Medical History (Updated [...] x10E3/uL Lymph # (Auto) 1.0 (1.00-4.8) x10E3/uL Mora # (Auto) 1.0 H (0.0-0.8) x10E3/uL Eos [...] Bradycardia, unspecified Documented By: Marv Drew MD, [facility] 2 1125 Signed By: <Electronically signed by [facility] Marv Drew> 01/10/22 1132 [facility] Work Phone: Consult note Author Victor Manuel Reynolds [facility] January 13, 2022 10:45am Note Date/Time January 13, 2022 1 0:45am [facility] [address] [place] [address] Infect. Disease Consult Note Signed Patient: Irineo Wallis Jr MR# : [id number] : 1940 Acct:[id number] Age/Sex: 81 / M Adm Date: 2 Loc: Room: [address] [place] [address] Type: ADM IN Attending Dr: Raji Ennis [...] negative unless noted below or in HPI [facility] Attestation Statement: The following information was [...] Bisacodyl (Bisacodyl 10 Mg Supp.Rect) 10 mg FL DAILY PRN PRN Reason: Constipation Stop: 01/09/23 14:40 Bisacodyl (Bisacodyl 5 Mg Tablet.Dr) 10 mg PO DAILY PRN PRN Reason: Constipation Stop: 01/09/23 14:40 Last Admin: 01/12/22 08:22 Dose: 10 mg Bumetanide (Bumetanide 1 Mg/4 Ml Vial) 1 mg IV-PUSH BID@0800,1600 [facility] Stop: 01/13/23 07:59 Last Admin: 01/13/22 09:43 Dose: 1 mg Docusate Sodium (Docusate 100 Mg Capsule) 100 mg PO BID [facility] Stop: 01/09/23 20:59 Last Admin: 01/13/22 09:43 Dose: 100 mg Fluticasone Propionate (Fluticasone Propionate [place] 120 [place]/16 Gm Bottle) 1 spray NARES-BOTH QHS PRN PRN Reason: Nasal Congestion Stop: 01/09/23 15:16 Magnesium Sulfate (Magnesium Sulf 2gm-*Swfi*) 2 gm in 50 mls @ 25 mls/hr IV DAILY PRN PRN Reason: Magnesium Level < 1.5 Stop: 01/09/23 14:40 Cefepime HCl (Maxipime) 2 gm in 50 mls @ 100 mls/hr IV Q12H [facility] Last Admin: 01/13/22 03:07 Dose: 100 mls/hr Levothyroxine Sodium (Levothyroxine 150 Mcg Tablet) 150 mcg PO DAILY@0630 [facility]1983 Stop: 01/10/23 06:29 Last Admin: 01/13/22 06:26 Dose: 150 mcg Magnesium Hydroxide (Magnesium Hydroxide Susp 30 Ml Udc) 30 ml PO BID PRN PRN Reason: Constipation Stop: 01/09/23 14:40 Magnesium Oxide (Magnesium Oxide 400 Mg Tablet) 400 mg PO DAILY [facility] Stop: 01/10/23 08:59 Last Admin: 01/13/22 09:43 Dose: 400 mg Nitroglycerin (Nitroglycerin 0.4 Mg Tab.Subl) 0.4 mg SUBLINGUAL Q5MIN.X3 PRN PRN Reason: Chest Pain Stop: 01/09/23 14:40 Pom Eszopiclone 3 Mg (Tablet) 3 mg PO HS [facility] Stop: 01/11/23 21:59 Last Admin: 01/12/22 22:51 Dose: 3 mg Nystatin (Nystatin 100,000 Unit/Gram Powder 15 Gm Bottle) 1 applic TOPICAL TID [facility] Stop: 01/09/23 21:59 Last Admin: 01/13/22 09:43 [...] 20 Meq Tab.Er.Prt) 20 meq PO QPM [facility] Stop: 01/09/23 20:59 Last Admin: 01/12/22 22:51 Dose: 20 meq Sodium Chloride (Sodium Chloride 0.9 % 10 Ml Syringe) 0 ml IV-PUSH PRN PRN PRN Reason: Flush Stop: 01/09/23 09:37 Last Admin: 01/10/22 23:31 Dose: 10 ml Sodium Chloride (Sodium Chloride 0.9 % 10 Ml Syringe) 0 ml IV-PUSH QSHIFT [facility] Stop: 01/09/23 21:59 Last Admin: 01/13/22 06:26 [...] signed by MD Victor Manuel Reynolds> 01/13/22 1046 [facility] Work Phone: Evaluation noteNo assessment information available [facility] Work Phone: Evaluation noteNo InformationNort [employer] Other Evaluation note* Diagnosis Onset Date Resolution Status Acute decompensated heart failure acute Acute exacerbation of chronic low back pain acute Elevated troponin acute Fall acute Hypoxemia acute [facility] Work Phone: Evaluation note* Diagnosis Onset Date Resolution Status Acute decompensated heart failure acute Acute exacerbation of chronic low back pain acute [id number] acute Acute respiratory failure with hypoxia acute [...] apnea acute Atrial fibrillation chronic Hypertension chronic [facility] Work Phone: History and physical note Author Dharmesh Zavala [facility] January 09, 2022 3:30pm Note Date/Time January 09, 2022 3 :30pm [facility] [address] [place] [address] Hospitalist H&P Signed Patient: Irineo Wallis Jr MR# : [id number] : 1940 Acct:[id number] Age/Sex: 81 / M Adm Date: 2 Loc: Room: [address] [place] [address] Type: ADM IN Attending Dr: Dharmesh Zavala DO Copies to: DO Dharmesh Catalan DO~ HPI DATE OF EXAMINATION: 01/09/22 CHIEF COMPLAINT: [...] that he had seen a urologist in [place] recently. Patient used to be on a number of prostate medications but apparently they were stopped because they are not doing what they are supposed to be doing. The patient andhis daughter have a discussion about what urology was doing for the situation without finding a specific answer. Patient also describes that he has been veryconstipated lately and takes an unspecified ewxk-mbu-rgzesey generic stool softener. His daughter does point [...] radiofrequency ablations by pain management doctor in [place]. Review of Systems Review of Systems Review of systems: 10 systems are reviewed and are negative except as mentioned elsewhere in the documentation. [facility] Vaccinated for COVID-19?: Yes Medical History (Updated [...] % (Auto) 13.5 % (.) 01/09/22 10:36 Mora % (Auto) 14.2 % (.) 01/09/22 10:36 Eos % (Auto) 0.1 % (.) 01/09/22 10:36 Baso % (Auto) 1.0 % (.) 01/09/22 10:36 Neut # (Auto) 4.3 x10E3/uL (1.8-7.7) 01/09/22 10:36 Lymph # (Auto) 0.8 x10E3/uL (1.00-4.8) L 01/09/22 10:36 Mora # (Auto) 0.9 x10E3/uL (0.0-0.8) H 01/09/22 [...] pH 5.5 (5.0-9.0) 01/09/22 12:42 Ur Specific [place] 1.018 (1.001-1.030) 01/09/22 12:42 Urine Protein Trace [...] lumbar spine. Documented By: Dharmesh Zavala DO 1519 Signed By: <Electronically signed by Dharmesh Zavala, > 01/09/22 1530 [facility] Work Phone: history of Present illness Narrative* The patient states he has been generally stable since the last visit. Comorbid Illnesses: hypertension. * Symptoms: denies chest pain at rest, denies exertional chest pain, denies dyspnea, denies fatigue, stable exercise intolerance, denies palpitations, denies edema, denies orthopnea, denies dizziness and denies orthostatic dizziness. * Disease Monitoring: [facility] Work Phone: history of Present illness Narrative* The patient states he has been generally stable since the last visit. Comorbid Illnesses: hypertension. * Symptoms: denies chest pain at rest, denies exertional chest pain, denies dyspnea, denies fatigue, stable exercise intolerance, denies palpitations, denies edema, denies orthopnea, denies dizziness and denies orthostatic dizziness. * Disease Monitoring: [facility] Work Phone: history of Present illness Narrative* The patient presents [...] is not doing well with his goals. [facility] Work Phone: history of Present illness Narrative* The patient presents [...] is not doing well with his goals. -[facility] 600 DO Work Phone: Hospital Discharge instructions Additional Instructions Nursing Home Facility to manage care: - Full code [...] unable to void, chou catheter removed on 01/16[facility] Work Phone: Progress note Author Dharmesh Zavala [facility] January 10, 2022 8:54pm Note Date/Time January 10, 2022 8 :54pm [facility] [address] [place] [address] Hospitalist Progress Note Signed Patient: Irineo Wallis Jr MR# : [id number] : 1940 Acct:[id number] Age/Sex: 81 / M Adm Date: 2 Loc: Room: [address] [place] [address] Type: ADM IN Attending Dr: Dharmesh Zavala DO Copies to: ~ Date of Service: 01/10/2022 Subjective Subjective Narrative: When I entered the room the patient tells me that he is getting a pain in the thighs on the top of his legs. He does mention that the people in [place] told me that was due to [...] mg 01/09/22 14:41 Bisacodyl 10 Mg Supp.Rect FL 01/09/23 14:40 DAILY PRN Constipation Bisacodyl 10 mg 01/09/22 14:41 Bisacodyl 5 Mg Tablet.Dr PO 01/09/23 14:40 DAILY PRN Constipation Bumetanide 1 mg 01/09/22 15:30 01/10/22 14:42 Bumetanide 1 Mg/4 Ml Vial IV-PUSH 01/09/23 15:29 1 mg Q8H ANIBAL Administration Docusate Sodium 100 mg 01/09/22 21:00 01/10/22 08:58 Docusate 100 Mg Capsule PO 01/09/23 20:59 Not Given BID [facility]1983 Fluticasone Propionate 1 spray 01/09/22 15:17 Fluticasone Propionate [place] 120 [place]/16 Gm Bottle NARES-BOTH 01/09/23 15:16 QHS PRN [...] 01/09/22 22:00 Eszopiclone PO 01/09/23 21:59 HS [facility]1983 Nystatin 1 applic 01/09/22 22:00 01/10/22 14:42 [...] <Electronically signed by Dharmesh Zavala DO> 01/10/222053 [facility] Work Phone: Progress note Author Mani Dickens [facility] January 11, 2022 5:02pm Note Date/Time January 11, 2022 8 :55am [facility] [address] [place] [address] Neurology Progress Note Signed Patient: Irineo Wallis Jr MR# : [id number] : 1940 Acct:[id number] Age/Sex: 81 / M Adm Date: 2 Loc: Room: [address] [place] [address] Type: ADM IN Attending Dr: Raji Ennis [...] knee to all modalities. 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 The patient is an 81-year-old man [...] signed by MD Mani Dickens> 01/11/22 1702 [facility] Work Phone: Progress note Author W Be Mcintyre [facility] January 11, 2022 2:09pm Note Date/Time January 11, 2022 2 :09pm [facility] [address] [place] [address] Cardiology Progress Note Signed Patient: Irineo Wallis Jr MR# : [id number] : 1940 Acct:[id number] Age/Sex: 81 / M Adm Date: 2 Loc: Room: [address] [place] [address] Type: ADM IN Attending Dr: Raji Ennis [...] % (Auto) 73.8 Lymph % (Auto) 13.7 Mora % (Auto) 9.6 Eos % (Auto) 2.2 Baso % (Auto) 0.7 Neut # (Auto) 6.3 Lymph # (Auto) 1.2 Mora # (Auto) 0.8 Eos # (Auto) 0.2 [...] signed by Bhupinder Mcintyre DO> 01/11/22 1409 [facility] Work Phone: Progress note Author Raji Ennis [facility] January 11, 2022 5:04pm Note Date/Time January 11, 2022 5 :04pm [facility] [address] [place] [address] Hospitalist Progress Note Signed Patient: Irineo Wallis Jr MR# : [id number] : 1940 Acct:[id number] Age/Sex: 81 / M Adm Date: 2 Loc: 3T Room: [address] [place] [address] Type: ADM IN Attending Dr: Raji Ennis [...] mg 01/09/22 14:41 Bisacodyl 10 Mg Supp.Rect FL 01/09/23 14:40 DAILY PRN Constipation Bisacodyl 10 [...] Propionate 1 spray 01/09/22 15:17 Fluticasone Propionate [place] 120 [place]/16 Gm Bottle NARES-BOTH 01/09/23 15:16 QHS PRN [...] 01/11/22 22:00 Tablet PO 01/11/23 21:59 HS [facility]1983 Nystatin 1 applic 01/09/22 22:00 01/11/22 15:24 [...] prophylaxis Documented By: Raji Ennis MD 01/11/22 8262 Signed By: <Electronically signed by Raji Ennis MD> 01/11/22 3237 [facility] Work Phone: Progress note Author Mani Dickens [facility] January 12, 2022 4:10pm Note Date/Time January 12, 2022 8 :19am [facility] [address] [place] [address] Neurology Progress Note Signed Patient: Irineo Wallis Jr MR# : [id number] : 1940 Acct:[id number] Age/Sex: 81 / M Adm Date: 2 Loc: Room: [address] [place] [address] Type: ADM IN Attending Dr: Raji Ennis [...] extremities * Unable to test finger-nose or tbbf-cg-wmuf due to drowsiness REFLEX EXAM: * 03/10 throughout Objective Vital Signs Vital Signs: Vital [...] Therapy Recommendations: OT Recommendations OT Recommended Discharge Nursing Home Facility Location OT Recommended Services at Physical Therapy,Occupational Therapy Discharge PT Recommendations PT Recommended Discharge Nursing Home Facility Location PT Recommended Services at Physical [...] the plan of care and 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 The patient is an 81-year-old man [...] falls Status: Acute Documented By: MEI Tristan 0818 Signed By: <Electronically signed by MEI Knight> 01/12/22 1058 <Electronically signed by MD Mani Dickens> 01/12/22 1610 [facility] Work Phone: Progress note Author Raji Ennis [facility] January 12, 2022 4:38pm Note Date/Time January 12, 2022 4 :38pm [facility] [address] [place] [address] Hospitalist Progress Note Signed Patient: Irineo Wallis Jr MR# : [id number] : 1940 Acct:[id number] Age/Sex: 81 / M Adm Date: 2 Loc: Room: [address] [place] [address] Type: ADM IN Attending Dr: Raji Ennis [...] mg 01/09/22 14:41 Bisacodyl 10 Mg Supp.Rect FL 01/09/23 14:40 DAILY PRN Constipation Bisacodyl 10 [...] Propionate 1 spray 01/09/22 15:17 Fluticasone Propionate [place] 120 [place]/16 Gm Bottle NARES-BOTH 01/09/23 15:16 QHS PRN [...] 15:06 01/12/22 15:50 Maxipime IV Infused Q12H [facility] Infusion Levothyroxine Sodium 150 mcg 01/10/22 06:30 01/12/22 05:47 Levothyroxine 150 Mcg Tablet PO 01/10/23 06:29 150 mcg DAILY@0630 [facility] Administration Magnesium Hydroxide 30 ml 01/09/22 14:41 [...] signed by Raji Ennis MD> 01/12/22 1638 [facility] Work Phone: Progress note Author W Be Mcintyre [facility] January 12, 2022 6:11pm Note Date/Time January 12, 2022 6 :11pm [facility] [address] [place] [address] Cardiology Progress Note Signed Patient: Irineo Wallis Jr MR# : [id number] : 1940 Acct:[id number] Age/Sex: 81 / M Adm Date: 2 Loc: Room: 8W2847-1 Type: ADM IN Attending Dr: Raji Ennis [...] % (Auto) 76.3 Lymph % (Auto) 12.2 Mora % (Auto) 9.1 Eos % (Auto) 1.9 Baso % (Auto) 0.5 Neut # (Auto) 7.7 Lymph # (Auto) 1.2 Mora # (Auto) 0.9 H Eos # (Auto) [...] 2.9 Globulin (PEP) 2.4 Albumin/Globulin (PEP) 1.2 Qszlk-7-Uxtofrkzo 0.4 Wmfpi-5-Fyunqrejw 0.7 Beta Globulins 0.6 L Gamma Globulins 0.8 M-Franky Not observed PEP Note IgG 816 IgA 171 IgM 105 Serum Immunofixation 01/12/22 06:42 Corrected WBC Uncorrected WBC Count RBC Hgb Hct MCV MCH MCHC RDW Plt Count MPV Neut % (Auto) Lymph % (Auto) Mora % (Auto) Eos % (Auto) Baso % (Auto) Neut # (Auto) Lymph # (Auto) Mora # (Auto) Eos # (Auto) Baso # (Auto) Nucleated RBC % (auto) PHA Creatinine Clear Sodium Potassium Chloride Carbon Dioxide Anion Gap BUN Creatinine Est GFR ( Amer) Est GFR (Non-Af Amer) Glucose Calcium C-Reactive Prot, Quant 8.4 H Serum Total Protein Albumin (Send Out) Globulin (PEP) Albumin/Globulin (PEP) Tcffj-3-Ocipliaxi Jssxn-1-Lubkpgrux Beta Globulins Gamma Globulins M-Franky PEP Note [...] <Electronically signed by Bhupinder Mcintyre DO> 01/12/22 1819 [facility] Work Phone: Progress note Author Mani Dickens [facility] January 13, 2022 6:10pm Note Date/Time January 13, 2022 8 :13am [facility] [address] [place] [address] Neurology Progress Note Signed with Addenda Patient: Irineo Wallis Jr MR# : [id number] : 1940 Acct:[id number] Age/Sex: 81 / M Adm Date: 2 Loc: Room: [address] [place] [address] Type: ADM IN Attending Dr: Raji Ennis [...] extremities * Unable to test finger-nose or hizc-lu-kksm due to drowsiness REFLEX EXAM: * 1/ throughout Objective Vital [...] Therapy Recommendations: OT Recommendations OT Recommended Discharge Nursing Home Facility Location OT Recommended Services at Physical Therapy,Occupational Therapy Discharge PT Recommendations PT Recommended Discharge Nursing Home Facility Location PT Recommended Services at Physical [...] <Electronically signed by MEI Knight> 01/13/22 1520 [facility] Work Phone: Progress note Author Raji Ennis [facility] January 13, 2022 3:44pm Note Date/Time January 13, 2022 3 :27pm [facility] [address] [place] [address] Hospitalist Progress Note Signed Patient: Irineo Wallis Jr MR# : [id number] : 1940 Acct:[id number] Age/Sex: 81 / M Adm Date: 2 Loc: Room: [address] [place] [address] Type: ADM IN Attending Dr: Raji Ennis [...] mg 01/09/22 14:41 Bisacodyl 10 Mg Supp.Rect FL 01/09/23 14:40 DAILY PRN Constipation Bisacodyl 10 mg 01/09/22 14:41 01/12/22 08:22 Bisacodyl 5 Mg Tablet.Dr PO 01/09/23 14:40 10 mg DAILY PRN Administration Constipation Bumetanide 1 mg 01/13/22 16:00 Bumetanide 1 Mg Tablet PO 01/13/23 15:59 BID@0800,1600 [facility], [facility] Docusate Sodium 100 mg 01/09/22 21:00 01/13/22 09:43 Docusate 100 Mg Capsule PO 01/09/23 20:59 100 mg BID ANIBAL Administration Fluticasone Propionate 1 spray 01/09/22 15:17 Fluticasone Propionate [place] [address] [place]/16 Gm Bottle NARES-BOTH 01/09/23 15:16 QHS PRN [...] signed by Raji Ennis MD> 01/13/22 1544 [facility] Work Phone: Progress note Author Victor Manuel Reynolds [facility] January 14, 2022 9:39am Note Date/Time January 14, 2022 9:39am [facility] [address] [place] [address] Infect. Disease Progress Note Signed Patient: Irineo Wallis Jr MR# : [id number] : 1940 Acct:[id number] Age/Sex: 81 / M Adm Date: 2 Loc: Room: [address] [place] [address] Type: ADM IN Attending Dr: Raji Ennis [...] Appearance Clear Urine pH 5.5 Ur Specific [place] 1.012 Urine Protein 30 H Urine Glucose [...] 5 Mg Tablet) 5 mg PO BID [facility], [facility]1983 Stop: 01/09/23 20:59 Last Admin: 01/14/22 08:04 Dose: 5 mg Atorvastatin Calcium (Atorvastatin 40 Mg Tablet) 40 mg PO QHS ANIBAL Stop: 01/09/23 21:59 Last Admin: 01/13/22 21:26 Dose: 40 mg Bisacodyl (Bisacodyl 10 Mg Supp.Rect) 10 mg FL DAILY PRN PRN Reason: Constipation Stop: 01/09/23 14:40 Bisacodyl (Bisacodyl 5 Mg Tablet.Dr) 10 mg PO DAILY PRN PRN Reason: Constipation Stop: 01/09/23 14:40 Last Admin: 01/13/22 21:26 Dose: 10 mg Bumetanide (Bumetanide 1 Mg Tablet) 1 mg PO BID@0800,1600 [facility], [facility] Stop: 01/13/23 15:59 Docusate Sodium (Docusate 100 Mg Capsule) 100 mg PO BID [facility], [facility]1983 Stop: 01/09/23 20:59 Last Admin: 01/14/22 08:03 Dose: 100 mg Fluticasone Propionate (Fluticasone Propionate [place]/16 Gm Bottle) 1 spray NARES-BOTH QHS PRN PRN Reason: Nasal Congestion Stop: 01/09/23 15:16 Magnesium Sulfate (Magnesium Sulf 2gm-*Swfi*) 2 gm in 50 mls @ 25 mls/hr IV DAILY PRN PRN Reason: Magnesium Level < 1.5 Stop: 01/09/23 14:40 Cefepime HCl (Maxipime) 2 gm in 50 mls @ 100 mls/hr IV Q12H [facility], [facility] Last Admin: 01/14/22 03:05 Dose: 100 mls/hr Vancomycin HCl 1.25 gm/ (Dextrose) 275 mls @ 183.333 mls/hr IV Q24H [facility], [facility]–1983 Stop: 01/13/23 18:59 Last Infusion: 01/13/22 21:17 Dose: Infused Levothyroxine Sodium (Levothyroxine 150 Mcg Tablet) 150 mcg PO DAILY@0630 [facility], [facility]1983 Stop: 01/10/23 06:29 Last Admin: 01/14/22 05:54 Dose: 150 mcg Magnesium Hydroxide (Magnesium Hydroxide Susp 30 Ml Udc) 30 ml PO BID PRN PRN Reason: Constipation Stop: 01/09/23 14:40 Magnesium Oxide (Magnesium Oxide 400 Mg Tablet) 400 mg PO DAILY [facility]1983 Stop: 01/10/23 08:59 Last Admin: 01/14/22 08:04 Dose: 400 mg Nitroglycerin (Nitroglycerin 0.4 Mg Tab.Subl) 0.4 mg SUBLINGUAL Q5MIN.X3 PRN PRN Reason: Chest Pain Stop: 01/09/23 14:40 Pom Eszopiclone 3 Mg (Tablet) 3 mg PO HS [facility], [facility]1983 Stop: 01/11/23 21:59 Last Admin: 01/13/22 21:27 Dose: 3 mg Nystatin (Nystatin 100,000 Unit/Gram Powder 15 Gm Bottle) 1 applic TOPICAL TID [facility], [facility]1983 Stop: 01/09/23 21:59 Last Admin: 01/14/22 08:04 [...] 20 Meq Tab.Er.Prt) 20 meq PO QPM [facility], [facility]1983 Stop: 01/09/23 20:59 Last Admin: 01/13/22 21:26 Dose: 20 meq Sodium Chloride (Sodium Chloride 0.9 % 10 Ml Syringe) 0 ml IV-PUSH PRN PRN PRN Reason: Flush Stop: 01/09/23 09:37 Last Admin: 01/10/22 23:31 Dose: 10 ml Sodium Chloride (Sodium Chloride 0.9 % 10 Ml Syringe) 0 ml IV-PUSH QSHIFT [facility], [facility]1983 Stop: 01/09/23 21:59 Last Admin: 01/14/22 05:54 [...] limits Documented By: Victor Manuel Reynolds MD 01/14/22 0935 Signed By: <Electronically signed by MD Victor Manuel Reynolds> 01/14/22 0939 [facility] Work Phone: Progress note Author Raji Ennis [facility] January 14, 2022 5:43pm Note Date/Time January 14, 2022 5:43pm [facility] [address] [place] [address] Hospitalist Progress Note Signed Patient: Irineo Wallis Jr MR# : [id number] : 1940 Acct:[id number] Age/Sex: 81 / M Adm Date: 2 Loc: Room: [address] [place] [address] Type: ADM IN Attending Dr: Raji Ennis [...] mg 01/09/22 14:41 Bisacodyl 10 Mg Supp.Rect FL 01/09/23 14:40 DAILY PRN Constipation Bisacodyl 10 [...] Propionate 1 spray 01/09/22 15:17 Fluticasone Propionate [place] [address] [place]/16 Gm Bottle NARES-BOTH 01/09/23 15:16 QHS PRN [...] <Electronically signed by Raji Ennis MD> 01/14/221742 [facility] Work Phone: Progress note Author Victor Manuel Reynolds [facility] January 15, 2022 12:21pm Note Date/Time January 15, 2022 12:21pm [facility] [address] [place] [address] Infect. Disease Progress Note Signed Patient: Irineo Wallis Jr MR# : [id number] : 1940 Acct:[id number] Age/Sex: 81 / M Adm Date: 2 Loc: Room: [address] [place] [address] Type: ADM IN Attending Dr: Raji Ennis [...] 300 Mg Tablet) 300 mg PO DAILY [facility] Stop: 01/10/23 08:59 Last Admin: 01/15/22 08:46 Dose: 300 mg Apixaban (Apixaban 5 Mg Tablet) 5 mg PO BID [facility] Stop: 01/09/23 20:59 Last Admin: 01/15/22 08:46 Dose: 5 mg Atorvastatin Calcium (Atorvastatin 40 Mg Tablet) 40 mg PO QHS [facility] Stop: 01/09/23 21:59 Last Admin: 01/14/22 21:32 Dose: 40 mg Bisacodyl (Bisacodyl 10 Mg Supp.Rect) 10 mg FL DAILY PRN PRN Reason: Constipation Stop: 01/09/23 14:40 Bisacodyl (Bisacodyl 5 Mg Tablet.Dr) 10 mg PO DAILY PRN PRN Reason: Constipation Stop: 01/09/23 14:40 Last Admin: 01/14/22 19:57 Dose: 10 mg Bumetanide (Bumetanide 1 Mg Tablet) 1 mg PO DAILY@0800 [facility] Stop: 01/14/23 15:59 Last Admin: 01/15/22 08:46 Dose: 1 mg Docusate Sodium (Docusate 100 Mg Capsule) 100 mg PO BID [facility] Stop: 01/09/23 20:59 Last Admin: 01/15/22 08:46 Dose: 100 mg Fluticasone Propionate (Fluticasone Propionate [place]/16 Gm Bottle) 1 spray NARES-BOTH QHS PRN PRN Reason: Nasal Congestion Stop: 01/09/23 15:16 Magnesium Sulfate (Magnesium Sulf 2gm-*Swfi*) 2 gm in 50 mls @ 25 mls/hr IV DAILY PRN PRN Reason: Magnesium Level < 1.5 Stop: 01/09/23 14:40 Levothyroxine Sodium (Levothyroxine 150 Mcg Tablet) 150 mcg PO DAILY@0630 [facility] Stop: 01/10/23 06:29 Last Admin: 01/15/22 06:38 [...] 3 Mg (Tablet) 3 mg PO HS [facility] Stop: 01/11/23 21:59 Last Admin: 01/14/22 21:32 Dose: 3 mg Nystatin (Nystatin 100,000 Unit/Gram Powder 15 Gm Bottle) 1 applic TOPICAL TID [facility]1983 Stop: 01/09/23 21:59 Last Admin: 01/15/22 08:46 [...] 20 Meq Tab.Er.Prt) 20 meq PO QPM [facility] Stop: 01/09/23 20:59 Last Admin: 01/14/22 21:32 [...] signed by MD Victor Manuel Reynolds> 01/15/221220 [facility] Work Phone: Progress note Author Raji Ennis [facility] January 15, 2022 4:51pm Note Date/Time January 15, 2022 4:51pm [facility] [address] [place] [address] Hospitalist Progress Note Signed Patient: Irineo Wallis Jr MR# : [id number] : 1940 Acct:[id number] Age/Sex: 81 / M Adm Date: 2 Loc: Room: [address] [place] [address] Type: ADM IN Attending Dr: Raji Ennis [...] mg 01/09/22 14:41 Bisacodyl 10 Mg Supp.Rect FL 01/09/23 14:40 DAILY PRN Constipation Bisacodyl 10 [...] Propionate 1 spray 01/09/22 15:17 Fluticasone Propionate [place] [address] [place]/16 Gm Bottle NARES-BOTH 01/09/23 15:16 QHS PRN [...] tomorrow. Documented By: Raji Ennis MD 01/15/22 1645 Signed By: <Electronically signed by Raji Ennis MD> 01/15/22 1656 [facility] Work Phone: Summary Purpose Family History No [...] July 2021. * January 2022 hospitalized at [facility] due to fall, noted bradycardia with3.0-second [...] rare postural orthostatic h ypotension in the weight reduction specialist. He denies any palpitations or fast heartbeats. [...] Complaint and Reason for Visit Chief Complaint MEDICARE/[facility] Chief Complaint E03.9 I10 I48.91 fall Reason for Visit Acute decompensated heart failure Acute exacerbation of chronic low back pain Elevated troponin Fall Hypoxemia Chief Complaint E03.9 I10 I48.91 fall Reason for Visit Acute decompensated heart failure Acute exacerbation of chronic low back pain [id number] Acute respiratory failure with hypoxia Altered mental [...] Acute exacerbation of chronic low back pain [id number] Acute respiratory failure with hypoxia Altered mental [...] Acute exacerbation of chronic low back pain [id number] Acute respiratory failure with hypoxia Altered mental [...] section and content) DATE CREATED AUTHOR 08/30/2017 Roman Gomez [facility] DATE CREATED AUTHOR AUTHOR'S ORGANIZ ATION 07/09/2022 [facility] DATE CREATED AUTHOR AUTHOR'S ORGANIZ ATION 07/09/2022 [facility] DATE CREATED AUTHOR AUTHOR'S ORGANIZ ATION 07/16/2022 [facility] DATE CREATED AUTHOR AUTHOR'S ORGANIZ ATION 09/17/2022 [facility] DATE CREATED AUTHOR AUTHOR'S ORGANIZ ATION 03/29/2023 [facility] REASON FOR VISIT (unrecogniz ed section and content) 6 month Follow uprefillRefil lsNeeds refillREVIEW LABSRefillClinical Acute Medicineblood pressure checkClinical Acute Illnessblood pressure checkClinicalScraped Arm from [facility] SHOWback/leg pain, Hosp/rehab >month agorefillsRefillsfollow up lumbar degenerationRefillsRefills3 month Follow upRefillsreview labsRefillsRefill Lunesta- bpk to send rxClinical3 month Follow up- lumbar DDD/med check Care Teams (unrecognized sec tion and content) Team Status: Active Member Role Status Dates Feliciano Ga DO Primary Care Provider Active Team Status: Inactive Member Role Status Dates Feliciano Ga DO Primary Care Provider, Attending Chanell percy Active Team Status: Inactive Member Role Status Dates Feliciano Ga DO Primary Care Provider Active AKUA Suarez Attending Provider Active Team Status: Active Member Role Status Dates Feliciano Ga DO Primary Care Provider Active Victor Manuel Paiz MD Emergency Provider Active Dharmesh Zavala , DO Admit Provider, Attending Clinton cee Active Team Status: Inactive Member Role Status Dates Feliciano Ga DO Primary Care Provider Active Victor Manuel Paiz MD Emergency Provider Active Dharmesh Zavala , DO Admit Provider Active Shy Sciarappa Other Provider Active Meme De La Torre , DO Other Provider Active Mani Dickens MD Other Provider Active Matheus Rizvi , DO Other Provider Active Hoa Knight , JESSICA- Other Provider Active Vikas Mane , DO Other Provider Active Jen Degroot APRN Other Provider Active Raji Ennis MD Attending Provider Active Victor Manuel Reynolds MD Other Provider Active Team Status: Inactive Member Role Status Dates Feliciano Ga , DO Primary Care Provider Active Enedelia Gomez , LAB COORDINATOR Attending Provider Active Team Status: Active Member Role Status Dates Feliciano Ga , DO Primary Care Provider Active Feliciano Spencers , DO [facility] Attending Provider Active Team Status: Inactive Member Role Status Dates Felicianoamadou Spencers , DO Primary Care Provider Active Feliciano P Tjs , DO [facility] Attending Provider Active Goals [...] BE BASED ON THE PRIMARY CLINICAL RECORDS. [employer] [facility]. provides no warranty or guarantee of the accuracy or completeness of information in this document.
[2023-04-04 09:10] VITALS: BP 149/76; PULSE 85; RESP 16; TEMP 36.3; O2SAT 98
[2023-04-04 09:57] VITALS: BP 152/83; PULSE 112; PULSE 88; RESP 16; RESP 17; O2SAT 94
[2023-04-04] MEDS: BUPIVACAINE HCL 0.25% PF 25 MG/10 ML VIAL 8 ML INJ (09:59)
[2023-04-04] MEDS: LIDOCAINE HCL 2% PF 100 MG/5 ML VIAL 1 ML INJ (09:59)
[2023-04-04 10:00] VITALS: BP 152/96; O2SAT 97
--- NOTE | 2023-04-04 10:05 | W.PM.PROCNOT ---
Date of procedure: 04/04/23 Pre-op diagnosis: Lumbar spondylosis Post-op diagnosis: same as pre-op Procedure: Procedure: Bilateral L3-4, 4-5 medial branch block Medications: Bupivacaine 0.25% 6cc The patient was seen and examined in the preoperative holding area.? An informed consent was obtained and placed on the chart.? The patient was brought to the medical procedure unit and placed in the prone position.? A timeout was completed verifying correct patient, procedure site, positioning, plan, and special equipment.? Using aseptic technique, the needle was placed at left L3. Under direct fluoroscopic visualization a Quincke-tipped spinal needle was advanced to the junction of the superior articulating process with the transverse process at the designated medial branch segment.? Preceded by negative aspiration, the above-mentioned injectate was placed in 1 mL aliquots.? The procedure was repeated at left L4, 5.? The needle was removed and insertion site was covered. The same procedure, at the same levels, was completed on the right side. The patient was taken to the postprocedural recovery area and monitored for an appropriate length of time before found suitable for discharge in the company of a responsible adult. Anesthesia: Local Surgeon: Diana Price Pathology: none sent Condition: stable Disposition: no change
== END 2023-04-04 10:07 | disposition home or self-care (01) ==
PROVIDERS: Visit Provider Anesthesiology
DX: M47.816 Spondylosis without myelopathy or radiculopathy, lumbar region (principal)
CPT/HCPCS: 64493; 64494; J0665

== ENCOUNTER 2023-04-14 10:42 | Outpatient (OUT) | payer MEDICARE, BC, SELFPAY ==
--- NOTE | 2023-04-14 10:59 | PM.CN ---
Consult Note: HPI Data of Consult Patient: known to practice within the last 3 years Requesting Physician: Silvia Kimble NP Primary Care Provider: Non-Staff Physician, MD Consult Narrative Reason for consult: f/u Narrative: Irineo Mendes a pleasant 82 year old male presents for evaluation and management of chronic low back pain. Pain today 5/10 in low back, increases to 7/10 with activity and bending. Patient recently underwent bilateral L3,4,5 MBB #2 with >80% immediate improvement in pain and functional ability that lasted for a few hours. cc:: CC: Silvia Kimble NP Review of Systems ROS Status of ROS 10 or more systems reviewed and unremarkable except as noted in history and below Musculoskeletal Reports: back pain and joint pain PFSH PFSH Medical History CHF (congestive heart failure) ?I50.9 - Heart failure, unspecified (ICD-10) Cataracts, bilateral ?H26.9 - Unspecified cataract (ICD-10) Low back pain ?M54.50 - Low back pain, unspecified (ICD-10) Hypothyroid ?E03.9 - Hypothyroidism, unspecified (ICD-10) Hypercholesterolemia ?E78.00 - Pure hypercholesterolemia, unspecified (ICD-10) Afib ?I48.91 - Unspecified atrial fibrillation (ICD-10) Surgical History History of total knee arthroplasty ?Z96.659 - Presence of unspecified artificial knee joint (ICD-10) History of hip replacement ?Z96.649 - Presence of unspecified artificial hip joint (ICD-10) Previous back surgery ?Z98.890 - Other specified postprocedural states (ICD-10) History of shoulder surgery ?Z98.890 - Other specified postprocedural states (ICD-10) Meds Home Medications and Allergies Home Medications Medication Instructions Recorded Confirmed Type acetaminophen 500 mg oral powder 1,000 mg PO BID PRN pain 01/06/23 04/04/23 History packet (Tylenol Extra Strength) allopurinol 300 mg tablet 300 mg PO DAILY 01/06/23 04/04/23 History apixaban 5 mg tablet (Eliquis) 5 mg PO BID 01/06/23 04/04/23 History atorvastatin 40 mg tablet 40 mg PO DAILY 01/06/23 04/04/23 History bumetanide 1 mg tablet 1 mg PO DAILY 01/06/23 04/04/23 History eszopiclone 3 mg tablet 3 mg PO BEDTIME 01/06/23 04/04/23 History levothyroxine 150 mcg capsule 150 mcg PO DAILY 01/06/23 04/04/23 History magnesium oxide 400 mg PO DAILY 01/06/23 04/04/23 History oxycodone-acetaminophen 5 mg-325 1 tab PO BID 01/06/23 04/04/23 History mg tablet (Endocet) potassium chloride 20 mEq 20 meq PO DAILY 01/06/23 04/04/23 History tablet,extended release(part/cryst) pramipexole 0.25 mg tablet 0.25 mg PO DAILY 01/06/23 04/04/23 History (Mirapex) trazodone 50 mg tablet 50 mg PO DAILY 01/06/23 04/04/23 History Allergies Allergy/AdvReac Type Severity Reaction Status Date / Time fentanyl [From Duragesic] Allergy Unknown Verified 04/04/23 09:06 indomethacin [From Indocin] Allergy Unknown Verified 04/04/23 09:06 Penicillins Allergy Unknown Verified 04/04/23 09:06 zolpidem [From Ambien] Allergy Verified 04/04/23 09:06 Exam Constitutional Documenting provider has reviewed patient's vital signs: yes Common normals: no apparent distress, oriented x3, healthy appearing, alert and well nourished General appearance: cooperative [facility] Common normals: normocephalic, hearing grossly normal bilaterally and moist oral mucous membranes Head and scalp: normocephalic Eye Common normals: PERRL Pupil: PERRL Neck & C-Spine Common normals: full ROM General: normal visual inspection Chest Common normals: inspection of chest normal Respiratory Common normals: normal respiratory effort, no retractions and no use of accessory muscles Back & Pelvis Lumbar spine/lower back: ROM limited, pain with ROM and straight leg raise negative bilaterally Other: positive facet loading no radicular symptoms sensation intact in BLE 5/5 strength Extremity Common normals: normal to inspection and full ROM Neuro Common normals: oriented x3, CN's II-XII intact bilaterally, moves all extremities, no focal motor deficits, no sensory deficits noted and deep tendon reflexes 2+ bilaterally Sensorium/orientation: alert Motor exam: strength 5/5 throughout and no movement abnormalities noted Psych Common normals: mental status grossly normal, thought process normal, cooperative, affect normal, speech normal and activity/motor behavior normal Speech: normal speech Thought process: normal thought process Results Additional Findings Additional findings: I have checked an OAR[place] report on this patient today and there are no aberrancies noted in the prescribing history.?? A drug screen was completed and reviewed within the last year, and if there has not been a drug screen completed we ordered one today to monitor higher risk, state monitored pain medication use. As part of providing excellent, safe, comprehensive care, the following was completed at our patient's visit: 1. A medication reconciliation and review to ensure accurate knowledge of current/active medications, including asking our patients to inform us about any [id number]-[id number] medications or herbal remedies/nutritional supplements/alternative remedies. 2. A review to specifically ensure our patients have had annual screening for: elevated body mass index (BMI), tobacco use, screening for depression, and screening for unhealthy alcohol use. When screening is concerning, patients are provided with education and the specific recommendation to discuss the concerning health issue and treatment options with their primary care provider. Assessment and Plan Assessment and Plan (1) Lumbar spondylosis: Assessment and Plan: The patient has had over 3 months of moderate to severe low back pain with functional impairment and inadequate response to conservative care including NSAIDS (unless there are contraindication such as concurrent blood thinners), multiple oral or topical pain medications, and home exercise program/physical therapy.? Patient has completed >6 weeks of guided home exercise program and/or formal physical therapy program without relief of their symptoms.? I have reviewed the imaging of the lumbar spine and no red flags were identified.? The imaging reveals radiographic findings consistent with lumbar spondylosis The Oswestry Disability Index was completed, and the patient scored a 38%.? The patient noted the following:?? severe pain, pain with walking, pain with activity and while seated We discussed the risks and benefits of the procedure with the patient, and we are NOT planning on using sedation as outlined in the guidelines from Medicare unless there is a documented reason that sedation would be strongly recommended.?? ?The procedure will be completed with fluoroscopic guidance.? (2) Lumbar stenosis with neurogenic claudication: Plan bilateral L3,4,5 facet medial branch thermal RFA update UDS today continue HEP as tolerated continue current medications f/u 1 month after procedure
== END 2023-04-14 10:43 | disposition home or self-care (01) ==
LOC: PM 10:43
PROVIDERS: Visit Provider Nurse Practitioner
DX: M47.816 Spondylosis without myelopathy or radiculopathy, lumbar region (principal); M48.062 Spinal stenosis, lumbar region with neurogenic claudication
CPT/HCPCS: G0463

== ENCOUNTER 2023-04-18 09:23 | Day surgery (SDC) | payer MEDICARE, BC, SELFPAY ==
--- OUTSIDE RECORDS SUMMARY | 2023-04-18 09:27 | XMS_ITS | CCD ---
Author Name Unknown Address [address] [place] [address] Organization [facility] Care Team Providers Care Switchman Supervisor Name Role Phone Florentino Dontrell W Unavailable Unavailable Rice, Dontrell W Unavailable Unavailable Rice, Dontrell W Unavailable Unavailable NONE, XXXX Unavailable Unavailable Feliciano Ga Unavailable Unavailable Unavailable Feliciano Ga Unavailable DO Feliciano Ga Primary Care Provider TIFFANY Rodarte-Severiano Malone Attending Provider DO Feliciano Ga Attending Provider DO Feliciano Ga Primary Care Provider [phone] DO Feliciano Ga Attending Provider MD Victor Manuel Paiz Emergency Provider DO Dharmesh Zavala Admit Provider DO Dharmesh Zavala Attending Provider Shy Mcdonough Other Provider Unavailable DO Meme De La Torre Other Provider MD Mani Dickens Other Provider DO Matheus Rizvi Other Provider [phone] Antonia ANP- Hoa Other Provider DO Vikas Mane Other Provider RIKY Degroot Other Provider MD Raji Ennis Attending Provider [phone] MD Victor Manuel Reynolds Other Provider SanRIKY Coronel Attending Provider Kuns, DO Feliciano Myers Attending Provider Kuns, DO Feliciano Primary Care Provider [phone] Kuns, DO Feliciano Myers Attending Provider [phone] Kuns, Dr. Feliciano Parker Primary Care [...] Unavailable [place], DO Wiggins Primary Care Provider [phone] Kuns, DO Wiggins Attending Provider Kuns, Feliciano [...] Drug Allergy 11-09-19 AOF, loopy , Dizziness [facility] (20 sources) indomethacin; Translations: [Indocin] Drug Allergy Other [facility] (20 sources) penicillin; Translations: [penicillin] Drug Allergy anaphylaxis [facility] (1 source) Duragesic-25; Translations: [Duragesic-25] Propensity to adverse reactions (disorder) [facility] (1 source) FentaNYL Matrix; Translations: [FentaNYL Matrix] Propensity to adverse reactions (disorder) AOF [facility] (20 sources) fentaNYL; Translations: [Duragesic-75 PT72] Drug Allergy Dizziness, Nausea [facility] Banyan Branch DO Work Phone: (20 sources) Penicillins; Translations: [Penicillins] Allergy to drug (finding) 11-09-19 Other, Weakness [facility] (20 sources) zolpidem; Translations: [Ambien] Drug Allergy memory loss [facility] [employer] 250 DO Work Phone: (20 sources) Indomethacin Drug Allergy 11-09-19 Unknown, Dizziness [facility] (20 sources) Duragesic-75 Drug allergy nausea [employer] Other (8 sources) zolpidem; Translations: [zolpidem] Drug Allergy 12-25-19 20 [facility] (1 source) fentaNYL Drug Allergy [facility] Repository (2 sources) Penicillins Drug allergy (disorder) 07-26-19 [facility] Repository (1 source) zolpidem Drug Allergy [facility] (1 source) Indomethacin Drug Allergy 01-10-20 [facility] Repository (1 source) Penicillins Drug allergy (disorder) 01-10-20 [facility] Repository Medications Current Medications Medication Drug [...] 30-40mmhg size xs. 5 gvaris, [id number], [place] 190099 Sep, Active Start: 09-28-[address] ockings 30-40 mmhg as directed knee high as directed 2 pair Sep, Active docusate sodium 100 mg oral capsule (20 sources) Start: 11-06-2019 End: 01-04-2020 take 1 capsule by mouth twice daily Docusate Sodium (Dok) 100 mg Capsule Active 100 MG PO Twice daily January 04, 2020 12:00am take 1 capsule by mo [facility] every twenty-four hours Colace 100 MG 1 [...] (13 sources) Polyene Antifungal Start: 02-09-2022 Nystatin 555404 UNIT/GM 1 application Externally Twice a day [...] by mouth every six hours Hydrocodone-Acetami nophen (Seminary) 5-325 mg tablet Discontinued 1 TAB PO Q6H November 06, 2019 November 06, 2019 9:42am Start: 11-06-2019 End: 11-06-2019 take 1 tablet by mouth every six hours Hydrocodone-Acetaminophen (Seminary) 5-325 mg tablet Discontinued 1 TAB PO Q6H November 06, 2019 November 06, 2019 8:42am Start: 11-06-2019 End: 11-06-2019 take 1 tablet by mouth every six hours Hydrocodone-Acetaminophen (Seminary) 5-325 mg tablet Discontinued 1 TAB PO Q6H November 06, 2019 November 06, 2019 8:42am Start: 11-06-2019 End: 11-06-2019 take 1 tablet by mouth every six hours Hydrocodone-Acetaminophen (Seminary) 5-325 mg tablet Discontinued 1 TAB PO Q6H November 06, 2019 November 06, 2019 8:42am Start: 11-06-2019 End: 11-06-2019 take 1 tablet by mouth every six hours Hydrocodone-Acetaminophen (Seminary) 5-325 mg tablet Discontinued 1 TAB PO Q6H November 06, 2019 November 06, 2019 8:42am Start: 11-06-2019 End: 11-06-2019 take 1 tablet by mouth every six hours Hydrocodone-Acetaminophen (Seminary) 5-325 mg tablet Discontinued 1 TAB PO Q6H November 06, 2019 November 06, 2019 9:42am Start: 11-06-2019 End: 11-06-2019 take 1 tablet by mouth every six hours Hydrocodone-Acetaminophen (Seminary) 5-325 mg tablet Discontinued 1 TAB PO [...] daily Lactulose Discontinued 30 GM PO Daily January 04, 2020 12:00am January [...] [Coronary atherosclerosis of unspecified type of vessel, [place] or graft] Chronic Disorders of lipid metabolism [...] 01-09-2022 Unclassified (1 source) Other specified dorsopathies, xzmkvuyl-agowqlb-vkvj l region; Translations: [Other specified dorsopathies, qvbknmsc-pibtanm-gzln l region] Onset: 09-28-2021 Urinary tract infections [...] 09-08-2022 ALT [Catalytic activity/Vol] 31 U/L 7-52 [facility] Albumin [Mass/volume] in Ser um or Plasma by Bromocresol green (BCG) dye binding methoOrdered By: Feliciano Ga on 09-08-2022 Albumin BCG dye [Mass/Vol] 4.1 g/dL 3.5-5.7 [facility] Alkaline phosphatase [Enzyma tic activity/volume] in Serum or PlasmaOrdered By: Feliciano Ga on 09-08-2022 ALP [Catalytic activity/Vol] 124 U/L 34-104 [facility] Aspartate aminotransferase [ Enzymatic activity/volume] in Serum or PlasmaOrdered By: Feliciano Ga on 09-08-2022 AST [Catalytic activity/Vol] 47 U/L 13-39 [facility] B-Type Natriuretic Peptideon 09-08-2022 Natriuretic peptide B (Bld) [Mass/Vol] 123.0 pg/mL High 5-100 [facility] Comment on above: Result Comment: PERF ORMED BY: [place] [address] PATHOLOGIST BLACK OXIDE OPERATOR JAYY SANTA M.D. Performed By: #### C OVID-19 MOSES CREWSEG #### [address] Basophils Auto (Bld) [#/Vol] Ordered By: Feliciano Ga on 09-08-2022 Basophils (Bld) [#/Vol] 0.0 10*3/uL 0.0-0.2 [facility] Basophils/100 WBC Auto (Bld) Ordered By: Feliciano Ga on 09-08-2022 Basophils/100 WBC (Bld) 1.0 % . [facility] Bilirubin.total [Mass/volume ] in Serum or PlasmaOrdered By: Feliciano Ga on 09-08-2022 Bilirubin [Mass/Vol] 0.7 mg/dL 0.3-1.0 [facility] Calcium [Mass/volume] in Ser um or PlasmaOrdered By: Feliciano Ga on 09-08-2022 Calcium [Mass/Vol] 9.5 mg/dL 8.6-10.3 [facility] Carbon dioxide, total [Moles /volume] in Serum or PlasmaOrdered By: Feliciano Ga on 09-08-2022 CO2 [Moles/Vol] 30.7 mmol/L 21.0-31.0 [facility] Chloride [Moles/volume] in S sandor or PlasmaOrdered By: Feliciano Ga on 09-08-2022 Chloride [Moles/Vol] 107 mmol/L 98-107 [facility] Cholesterol [Mass/volume] in Serum or PlasmaOrdered By: Feliciano Ga on 09-08-2022 Cholesterol [Mass/Vol] 124 mg/dL 140-200 [facility] Comment on above: Chol less than 200 m g/dl low riskChol 201-239 mg/dl borderline riskChol 240 mg/dl and greater high risk Cholesterol in LDL Calc [Mas s/Vol]Ordered By: Feliciano Ga on 09-08-2022 Cholesterol in LDL [Mass/Vol] 44 mg/dL 0-100 [facility] Comment on above: LDL ATP III CLASSIFI CATIONLDL less than 100 mg/dL OptimalLDL 100-129 mg/dL Near or above optimalLDL 130-159 mg/dL Borderline highLDL 160-189 mg/dL HighLDL greater than 189 mg/dL Very high Cholesterol in VLDL Calc [Ma ss/Vol]Ordered By: Feliciano Ga on 09-08-2022 Cholesterol in VLDL [Mass/Vol] 13 mg/dL [facility] Complete Blood Count Auto Di ffon 09-08-2022 Basophils (Bld) [#/Vol] 0.0 10*3/uL Normal 0.0-0.2 [facility] Comment on above: Order Comment: Reaso n for Exam Hyperlipidemia Result Comment: PERF ORMED BY: [place] [address] PATHOLOGIST BLACK OXIDE OPERATOR JAYY SANTA M.D. Performed By: #### C OVID-19 DOUGIE CREWSIANEG #### [facility] [address] Basophils/100 WBC (Bld) 1.0 % Normal . [facility] Comment on above: Order Comment: Reaso n for Exam Hyperlipidemia Performed By: #### C OVID-19 MARS SOFIANEG #### [facility] [address] [place] [address] [place] Eosinophils (Bld) [#/Vol] 0.8 10*3/uL High 0.0-0.45 [facility] Comment on above: Order Comment: Reaso n for Exam Hyperlipidemia Performed By: #### C OVID-19 MARS SOFIANEG #### [facility] [address] Eosinophils/100 WBC (Bld) 16.6 % Normal . [facility] Comment on above: Order Comment: Reaso n for Exam Hyperlipidemia Performed By: #### C OVID-19 MARS, SOFIANEG #### [facility] [address] Erythrocyte distribution width (RBC) [Ratio] 14.9 % High 12.0-14.8 [facility] Comment on above: Order Comment: Reaso n for Exam Hyperlipidemia Performed By: #### C OVID-19 MARS, SOFIANEG #### [address] Hematocrit (Bld) [Volume fraction] 37.1 % Low 38.8-50.0 [facility] Comment on above: Order Comment: Reaso n for Exam Hyperlipidemia Performed By: #### C OVID-19 MARS, SOFIANEG #### [address] Hemoglobin (Bld) [Mass/Vol] 12.5 g/dL Low 13.0-17.0 [facility] Comment on above: Order Comment: Reaso n for Exam Hyperlipidemia Performed By: #### C OVID-19 MARS, SOFIANEG #### [address] Lymphocytes (Bld) [#/Vol] 1.3 10*3/uL Normal 1.00-4.8 [facility] Comment on above: Order Comment: Reaso n for Exam Hyperlipidemia Performed By: #### C OVID-19 MARS, SOFIANEG #### [facility] [address] [place], [place] [id number] [place] Lymphocytes/100 WBC (Bld) 27.0 % Normal . [facility] Comment on above: Order Comment: Reaso n for Exam Hyperlipidemia Performed By: #### C OVID-19 MARS, SOFIANEG #### [facility] [address] [place] [address] MCH (RBC) [Entitic mass] 33.5 pg Normal 27.5-35.2 [facility] Comment on above: Order Comment: Reaso n for Exam Hyperlipidemia Performed By: #### C OVID-19 MARS, SOFIANEG #### [facility] [address] [place] [address] MCV (RBC) [Entitic vol] 99.7 fL Normal 83.5-101 [facility] Comment on above: Order Comment: Reaso n for Exam Hyperlipidemia Performed By: #### C OVID-19 MARS, SOFIANEG #### [facility] [address] [place] [address] Mean Corpuscular HGB Conc 33.6 g/dL Normal 32.5-35.6 [facility] Comment on above: Order Comment: Reaso n for Exam Hyperlipidemia Performed By: #### C OVID-19 MARS, SOFIANEG #### [facility] [address] [place] [address] Monocytes (Bld) [#/Vol] 0.3 10*3/uL Normal 0.0-0.8 [facility] Comment on above: Order Comment: Reaso n for Exam Hyperlipidemia Performed By: #### C OVID-19 MARS, SOFIANEG #### [facility] [address] [place] [address] [place] Monocytes/100 WBC (Bld) 7.2 % Normal . [facility] Comment on above: Order Comment: Reaso n for Exam Hyperlipidemia Performed By: #### C OVID-19 MARS, SOFIANEG #### [facility] [address] [place] [address] [place] Neutrophils (Bld) [#/Vol] 2.2 10*3/uL Normal 1.8-7.7 [facility] Comment on above: Order Comment: Reaso n for Exam Hyperlipidemia Performed By: #### C OVID-19 MARS, SOFIANEG #### [facility] [address] [place] [address] [place] Neutrophils/100 WBC (Bld) 48.2 % Normal . [facility] Comment on above: Order Comment: Reaso n for Exam Hyperlipidemia Performed By: #### C OVID-19 MARS, SOFIANEG #### [facility] [address] NRBC% 0.2 /100{WBC} Normal 0-0.5 [facility] Comment on above: Order Comment: Reaso n for Exam Hyperlipidemia Performed By: #### C OVID-19 MARS, SOFIANEG #### [facility] [address] Platelet mean volume (Bld) [Entitic vol] 8.8 fL Normal 6.6-10.1 [facility] Comment on above: Order Comment: Reaso n for Exam Hyperlipidemia Performed By: #### C OVID-19 MARS, SOFIANEG #### [facility] [address] Platelets (Bld) [#/Vol] 155 10*3/uL Normal 150-450 [facility] Comment on above: Order Comment: Reaso n for Exam Hyperlipidemia Performed By: #### C OVID-19 MARS, SOFIANEG #### [facility] [address] [place] [address] RBC (Bld) [#/Vol] 3.73 10*6/uL Low 3.90-5.60 [facility] Comment on above: Order Comment: Reaso n for Exam Hyperlipidemia Performed By: #### C OVID-19 MARS, SOFIANEG #### [facility] [address] [place] [address] WBC (Bld) [#/Vol] 4.7 10*3/uL Normal 4.1-10.5 [facility] Comment on above: Order Comment: Reaso n for Exam Hyperlipidemia Performed By: #### C OVID-19 MARS, SOFIANEG #### [facility] [address] [place] [address] Comprehensive Metabolic Pane haley 09-08-2022 Albumin [Mass/Vol] 4.1 g/dL Normal 3.5-5.7 [facility] Comment on above: Order Comment: Reaso n for Exam Hyperlipidemia Performed By: #### C OVID-19 MARS, SOFIANEG #### [facility] [address] [place] [address] Albumin/Globulin [Mass ratio] 1.9 {ratio} Normal [facility] Comment on above: Order Comment: Reaso n for Exam Hyperlipidemia Performed By: #### C OVID-19 MARS, SOFIANEG #### [facility] [address] [place] [address] [facility] ALP [Catalytic activity/Vol] 124 U/L High 34-104 [facility] Comment on above: Order Comment: Reaso n for Exam Hyperlipidemia Performed By: #### C OVID-19 MARS, SOFIANEG #### [facility] [address] [place] [id number] [facility] ALT [Catalytic activity/Vol] 31 U/L Normal 7-52 [facility] Comment on above: Order Comment: Reaso n for Exam Hyperlipidemia Performed By: #### C OVID-19 MARS, SOFIANEG #### [facility] [address] [place] [id number] [facility] Anion gap [Moles/Vol] 8.3 mmol/L Normal 6.0-15.0 [facility] Comment on above: Order Comment: Reaso n for Exam Hyperlipidemia Performed By: #### C OVID-19 MARS, SOFIANEG #### [facility] [address] [place] [id number] [place] AST [Catalytic activity/Vol] 47 U/L High 13-39 [facility] Comment on above: Order Comment: Reaso n for Exam Hyperlipidemia Performed By: #### C OVID-19 MARS, SOFIANEG #### [facility] [address] [place] [id number] [place] Bilirubin [Mass/Vol] 0.7 mg/dL Normal 0.3-1.0 [facility] Comment on above: Order Comment: Reaso n for Exam Hyperlipidemia Performed By: #### C OVID-19 MARS, SOFIANEG #### [facility] [address] [place] [id number] [place] Calcium [Mass/Vol] 9.5 mg/dL Normal 8.6-10.3 [facility] Comment on above: Order Comment: Reaso n for Exam Hyperlipidemia Performed By: #### C OVID-19 MARS, SOFIANEG #### [facility] [address] [place] [address] [place] Chloride [Moles/Vol] 107 mmol/L Normal 98-107 [facility] Comment on above: Order Comment: Reaso n for Exam Hyperlipidemia Performed By: #### C OVID-19 MARS, SOFIANEG #### [facility] [address] CO2 [Moles/Vol] 30.7 mmol/L Normal 21.0-31.0 [facility] Comment on above: Order Comment: Reaso n for Exam Hyperlipidemia Performed By: #### C OVID-19 MARS, SOFIANEG #### [facility] [address] Creatinine [Mass/Vol] 1.18 mg/dL Normal 0.70-1.30 [facility] Comment on above: Order Comment: Reaso n for Exam Hyperlipidemia Performed By: #### C OVID-19 MARS, SOFIANEG #### [facility] [address] [place] [address] [place] GFR/1.73 sq M.predicted MDRD (S/P/Bld) [Vol rate/Area] mL/min/{1.73_m2} [facility] Comment on above: Order Comment: Reaso n for Exam Hyperlipidemia Performed By: #### C OVID-19 MARS, SOFIANEG #### [facility] [address] [place] [address] [place] Globulin (S) [Mass/Vol] 2.2 g/dL [facility] Comment on above: Order Comment: Reaso n for Exam Hyperlipidemia Performed By: #### C OVID-19 MARS, SOFIANEG #### [facility] [address] [place] [id number] [place] Glucose [Mass/Vol] 83 mg/dL Normal 70-100 [facility] Comment on above: Order Comment: Reaso n for Exam Hyperlipidemia Result Comment: [place] Glucose Reference Range is dependent on time and content of last meal. Glucose of more than 200 mg/dL in a nonstressed, ambulatory subject supports the diagnosis of Diabetes Mellitus. ADA recommended reference range Performed By: #### C OVID-19 MRAS, SOFIANEG #### [facility] [address] Potassium [Moles/Vol] 4.0 mmol/L Normal 3.5-5.1 [facility] Comment on above: Order Comment: Reaso n for Exam Hyperlipidemia Performed By: #### C OVID-19 MARS, SOFIANEG #### [facility] [address] [place] [address] [place] Protein [Mass/Vol] 6.3 g/dL Low 6.4-8.9 [facility] Comment on above: Order Comment: Reaso n for Exam Hyperlipidemia Performed By: #### C OVID-19 MARS, SOFIANEG #### [facility] [address] Sodium [Moles/Vol] 142 mmol/L Normal 136-145 [facility] Comment on above: Order Comment: Reaso n for Exam Hyperlipidemia Performed By: #### C OVID-19 MARS, SOFIANEG #### [facility] [address] Urea nitrogen [Mass/Vol] 22 mg/dL Normal 7-25 [facility] Comment on above: Order Comment: Reaso n for Exam Hyperlipidemia Performed By: #### C OVID-19 MARS, SOFIANEG #### [facility] [address] [place] [address] Creatinine [Mass/volume] in Serum or PlasmaOrdered By: Feliciano Ga on 09-08-2022 Creatinine [Mass/Vol] 1.18 mg/dL 0.70-1.30 [facility] Eosinophils Auto (Bld) [#/Vo l]Ordered By: Feliciano Ga on 09-08-2022 Eosinophils (Bld) [#/Vol] 0.8 10*3/uL 0.0-0.45 [facility] Eosinophils/100 WBC Auto (Bl d)Ordered By: Feliciano aG on 09-08-2022 Eosinophils/100 WBC (Bld) 16.6 % . [facility] Erythrocyte distribution wid th Auto (RBC) [Ratio]Ordered By: Feliciano Ga on 09-08-2022 Erythrocyte distribution width (RBC) [Ratio] 14.9 % 12.0-14.8 [facility] Free T4 (Free Thyroxine)on 0 09-08-2022 Free T4 [Mass/Vol] 1.28 ng/dL High 0.61-1.12 [facility] Comment on above: Order Comment: Reaso n for Exam Weight loss Reason for Exam Hyperlipidemia Performed By: #### C OVID-19 MARS, SOFIANEG #### [facility] [address] Globulin Calc (S) [Mass/Vol] Ordered By: Feliciano Ga on 09-08-2022 Globulin (S) [Mass/Vol] 2.2 g/dL [facility] Glucose [Mass/volume] in Ser um or PlasmaOrdered By: Feliciano Ga on 09-08-2022 Glucose [Mass/Vol] 83 mg/dL 70-100 [facility] Comment on above: ADA recommended refe rence rangeRandom Glucose Reference Range is dependent on time and content of last meal. Glucose of more than 200 mg/dL in a nonstressed, ambulatory subject supports the diagnosis of Diabetes Mellitus. Hematocrit Auto (Bld) [Volum e fraction]Ordered By: Feliciano Ga on 09-08-2022 Hematocrit (Bld) [Volume fraction] 37.1 % 38.8-50.0 [facility] Hemoglobin [Mass/volume] in BloodOrdered By: Feliciano Ga on 09-08-2022 Hemoglobin (Bld) [Mass/Vol] 12.5 g/dL 13.0-17.0 [facility] Leukocytes [#/volume] correc fern for nucleated erythrocytes in Blood by Automated counOrdered By: Feliciano Ga on 09-08-2022 WBC corrected for nucl RBC Auto (Bld) [#/Vol] 4.7 10*3/uL 4.1-10.5 [facility] Lipid Panelon 09-08-2022 Cholesterol [Mass/Vol] 124 mg/dL Low 140-200 [facility] Comment on above: Order Comment: Reaso n for Exam Hyperlipidemia Result Comment: Chol less than 200 mg/dl low risk Chol 201-239 mg/dl borderline risk Chol 240 mg/dl and greater high risk Performed By: #### C OVID-19 MARS, SOFIANEG #### [facility] [address] [place] [address] [place] Cholesterol in HDL [Mass/Vol] 67 mg/dL Normal 23-92 [facility] Comment on above: Order Comment: Reaso n for Exam Hyperlipidemia Result Comment: HDL CHOL ATP-III CLASSIFICATION Cardiovascular Risk HDL > or equal to 60 mg/dL LOW HDL < 40 mg/dL HIGH Performed By: #### C OVID-19 MARS, SOFIANEG #### [facility] [address] Cholesterol.total/Chol esterol in HDL [Mass ratio] 1.9 {ratio} Normal <5.0 [facility] Comment on above: Order Comment: Reaso n for Exam Hyperlipidemia Result Comment: PERF ORMED BY: [place] [address] PATHOLOGIST BLACK OXIDE OPERATOR JAYY SANTA M.D. Performed By: #### C OVID-19 MARS, SOFIANEG #### [facility] [address] LDL Cholesterol,Calculated 44 mg/dL Normal 0-100 [facility] Comment on above: Order Comment: Reaso n for Exam Hyperlipidemia Result Comment: LDL ATP III CLASSIFICATION LDL less than 100 mg/dL Optimal LDL 100-129 mg/dL Near or above optimal LDL 130-159 mg/dL Borderline high LDL 160-189 mg/dL High LDL greater than 189 mg/dL Very high Performed By: #### C OVID-19 MARS, SOFIANEG #### [facility] [address] [place] [id number] [place] Triglyceride w/Reflex 66 mg/dL Normal 0-149 [facility] Comment on above: Order Comment: Reaso n for Exam Hyperlipidemia Result Comment: TRIG ATP III CLASSIFICATION TRIG less than 150 mg/dL Normal TRIG 150-199 mg/dL Borderline high TRIG 200-500 mg/dL High TRIG greater than 500 mg/dL Very high Standard traceable to the Center for Disease Conrtrol and Prevention (CDC) test method. Performed By: #### C OVID-19 MARS, SOFIANEG #### [facility] [address] VLDL CHOLESTEROL 13 mg/dL Normal [facility] Comment on above: Order Comment: [place] phelan for Exam Hyperlipidemia Performed By: #### C OVID-19 JOSE CREWS #### [facility] [address] Lymphocytes Auto (Bld) [#/Vo l]Ordered By: Feliciano Ga on 09-08-2022 Lymphocytes (Bld) [#/Vol] 1.3 10*3/uL 1.00-4.8 [facility] Lymphocytes/100 WBC Auto (Bl d)Ordered By: Feliciano Ga on 09-08-2022 Lymphocytes/100 WBC (Bld) 27.0 % . [facility] MCH Auto (RBC) [Entitic mass ]Ordered By: Feliciano Ga on 09-08-2022 MCH (RBC) [Entitic mass] 33.5 pg 27.5-35.2 [facility] MCHC Auto (RBC) [Mass/Vol]Or dered By: Feliciano Ga on 09-08-2022 MCHC (RBC) [Mass/Vol] 33.6 g/dL 32.5-35.6 [facility] MCV Auto (RBC) [Entitic vol] Ordered By: Feliciano Ga on 09-08-2022 MCV (RBC) [Entitic vol] 99.7 fL 83.5-101 [facility] Monocytes Auto (Bld) [#/Vol] Ordered By: Feliciano Ga on 09-08-2022 Monocytes (Bld) [#/Vol] 0.3 10*3/uL 0.0-0.8 [facility] Monocytes/100 WBC Auto (Bld) Ordered By: Feliciano Ga on 09-08-2022 Monocytes/100 WBC (Bld) 7.2 % . [facility] Natriuretic peptide B [Mass/ Vol]Ordered By: Bhupinder Mcintyre on 09-08-2022 Natriuretic peptide B (Bld) [Mass/Vol] 123.0 pg/mL 5-100 [facility] Neutrophils Auto (Bld) [#/Vo l]Ordered By: Feliciano Ga on 09-08-2022 Neutrophils (Bld) [#/Vol] 2.2 10*3/uL 1.8-7.7 [facility] Neutrophils/100 WBC Auto (Bl d)Ordered By: Feliciano Ga on 09-08-2022 Neutrophils/100 WBC (Bld) 48.2 % . [facility] No Panel Informationon 09-08 123.0\S\123.0 above high threshold 5-100 [facility] Heart-Sandu lauro 250 DO Work Phone: Comment on above: PERFORMED BY:[facility] [place], [place] [phone] MEDICAL DIRECTORJAYY SANTA M.D. No Panel InformationOrdered By: Feliciano Ga on 09-08-2022 Estimated GFR (CKD-EPI) > 60.0 mL/Min [facility] Creatinine Clearance (Chem N/A [facility] Nucleated erythrocytes [Pres ence] in Blood by Automated countOrdered By: Feliciano Ga on 09-08-2022 Nucleated RBC Auto Ql (Bld) 0.2 /100{WBC} 0-0.5 [facility] PSA Screen (Yearly Only)on 0 09-08-2022 PSA Screen (Yearly Only) 2.140 ng/mL Normal 0.000-4.00 0 [facility] Comment on above: Order Comment: Reaso n for Exam Screening for prostate cancer Is patient <50 yrs? Medicare does not pay <50.: N What is the date of the last PSA Screen?: 912016 Is Medicare the insurance?: Y Did you verify eligibility (Dx Time) check TestViewGp: YES TO ALL Result Comment: PERF ORMED BY: [facility] [address] [facility] [place] [address] PATHOLOGIST BLACK OXIDE OPERATOR JAYY SANTA M.D. Performed By: #### C OVID-19 MOSES CREWSEG #### [facility] [address] [place] [address] [facility] Platelet mean volume Auto (B ld) [Entitic vol]Ordered By: Feliciano Ga on 09-08-2022 Platelet mean volume (Bld) [Entitic vol] 8.8 fL 6.6-10.1 [facility] Platelets Auto (Bld) [#/Vol] Ordered By: Feliciano Ga on 09-08-2022 Platelets (Bld) [#/Vol] 155 10*3/uL 150-450 [facility] Potassium [Moles/volume] in Serum or PlasmaOrdered By: Feliciano Ga on 09-08-2022 Potassium [Moles/Vol] 4.0 mmol/L 3.5-5.1 [facility] Prostate specific Ag [Mass/v olume] in Serum or PlasmaOrdered By: Feliciano Ga on 09-08-2022 Prostate specific Ag [Mass/Vol] 2.140 ng/mL 0.000-4.00 0 [facility] Protein [Mass/volume] in Ser um or PlasmaOrdered By: Feliciano Ga on 09-08-2022 Protein [Mass/Vol] 6.3 g/dL 6.4-8.9 [facility] RBC Auto (Bld) [#/Vol]Ordere d By: Feliciano Ga on 09-08-2022 RBC (Bld) [#/Vol] 3.73 10*6/uL 3.90-5.60 [facility] Serum or plasma albumin/glob ulin mass ratioOrdered By: Feliciano Ga on 09-08-2022 Albumin/Globulin [Mass ratio] 1.9 {ratio} [facility] Serum or plasma anion gap de terminationOrdered By: Feliciano Ga on 09-08-2022 Anion gap [Moles/Vol] 8.3 mmol/L 6.0-15.0 [facility] Serum or plasma high density lipoprotein (HDL) cholesterol measurementOrdered By: Feliciano Ga on 09-08-2022 Cholesterol in HDL [Mass/Vol] 67 mg/dL 23-92 [facility] Comment on above: HDL CHOL ATP-III CLA SSIFICATION Cardiovascular RiskHDL > or equal to 60 mg/dL LOWHDL < 40 mg/dL HIGH Serum or plasma total choles terol/high density lipoprotein (HDL) cholesterol mass ratOrdered By: Feliciano Ga on 09-08-2022 Cholesterol.total/Chol esterol in HDL [Mass ratio] 1.9 {ratio} <5.0 [facility] Sodium [Moles/volume] in Ser um or PlasmaOrdered By: Feliciano Ga on 09-08-2022 Sodium [Moles/Vol] 142 mmol/L 136-145 [facility] Thyroid Stimulating Hormoneo n 09-08-2022 TSH Qn 0.46 m[IU]/L Normal 0.45-5.33 [facility] Comment on above: Order Comment: Reaso n for Exam Weight loss Reason for Exam Hyperlipidemia Result Comment: PERF ORMED BY: [facility] [address] [place] [address] PATHOLOGIST BLACK OXIDE OPERATOR JAYY SANTA M.D. Performed By: #### C OVID-19 JOSE CREWS #### [address] Thyrotropin [Units/volume] i n Serum or PlasmaOrdered By: Feliciano Ga on 09-08-2022 TSH Qn 0.46 m[IU]/L 0.45-5.33 [facility] Thyroxine (T4) free [Mass/vo lume] in Serum or PlasmaOrdered By: Feliciano Ga on 09-08-2022 Free T4 [Mass/Vol] 1.28 ng/dL 0.61-1.12 [facility] Triglyceride [Mass/volume] i n Serum or PlasmaOrdered By: Feliciano Ga on 09-08-2022 Triglyceride [Mass/Vol] 66 mg/dL 0-149 [facility] Comment on above: TRIG ATP III CLASSIF ICATIONTRIG less than 150 mg/dL NormalTRIG 150-199 mg/dL Borderline highTRIG 200-500 mg/dL High TRIG greater than 500 mg/dL Very highStandard traceable to the Center for Disease Conrtrol and Prevention (CDC) test method. Urea nitrogen [Mass/volume] in Serum or PlasmaOrdered By: Feliciano Ga on 09-08-2022 Urea nitrogen [Mass/Vol] 22 mg/dL 7-25 [facility] WBC Auto (Bld) [#/Vol]Ordere d By: Feliciano Ga on 09-08-2022 WBC (Bld) [#/Vol] 4.7 10*3/uL 4.1-10.5 [facility] Office Visit (Cardiology)on 07-07-2022 Follow-up [...] of Cardiac catheterization History of Complete colonoscopy [facility] History of Epidural steroid injection History [...] other sy (more content not included)... Normal [employer] Tobacco Screening.on 023 Tobacco use status CPHS b) No -[facility] [employer] lauro 250 DO Work Phone: US KIDNEYS [...] RONALD ISRAEL Date: 2022-05-13 09:51 Normal [facility] Cardiovasc Arrhythmia Result son 03-15-2022 Cardiovasc Arrhythmia Results Reason For Visit Reason for Visit: Holter Monitor: IRINEO is here for the application of a 24 hour Holter monitor. Ordering Physician: Enedelia Aguillon NP Diagnosis: afib NO equipment agreement signed. IRINEO understands monitor is to be returned on: 03/16/2022 Monitor number [id number] applied. Holter monitor printed and placed on [...] Date/TimeProviderSpecialty Site 07/07/2022 09:20 Irineo Link DOCardiology703 [facility] 2 Wai 250 DO Signatures Electronically signed by : Marv Drew MD; Mar 19 2022 6:25PM EST (Author) Electronically signed by : Enedelia Gomez APRN-[employer]; Mar 22 2022 9:37AM EST (Author) Normal [employer] Basic Metabolic Panelon -0 Anion gap [Moles/Vol] 10.1 mmol/L Normal 6.0-15.0 [facility] Comment on above: Performed By: #### C OVID-19 MARS SOFIANEG #### [facility] [address] [place] [address] [place] Calcium [Mass/Vol] 9.9 mg/dL Normal 8.2-10.2 [facility] Comment on above: Result Comment: PERF ORMED BY: [facility] [address] [place] [address] PATHOLOGIST BLACK OXIDE OPERATOR JAYY SANTA M.D. Performed By: #### C OVID-19 MARS, SOFIANEG #### [facility] [address] [place] [address] [place] Chloride [Moles/Vol] 100 mmol/L Normal 95-114 [facility] Comment on above: Performed By: #### C OVID-19 MARS, SOFIANEG #### [facility] [address] [place] [id number] [place] CO2 [Moles/Vol] 30.5 mmol/L High 22.0-30.0 [facility] Comment on above: Performed By: #### C OVID-19 MARS, SOFIANEG #### [facility] [address] [place] [address] [place] Creatinine [Mass/Vol] 1.28 mg/dL High 0.64-1.27 [facility] Comment on above: Performed By: #### C OVID-19 MARS, SOFIANEG #### [facility] [address] Estimated GFR ( Amarilis > 60 [facility] Comment on above: Result Comment: GFR estimated reference range: According to KDOQI guidelines, <60 ml/min/1.73m2 is sufficient to diagnose a patient with chronic kidney disease. Performed By: #### C OVID-19 MARS, SOFIANEG #### [facility] [address] [place] [address] [place] Estimated GFR (Non- Am 54 Normal [facility] Comment on above: Performed By: #### C OVID-19 MARS, SOFIANEG #### [facility] [address] [place] [address] [place] Glucose [Mass/Vol] 96 mg/dL Normal 70-100 [facility] Comment on above: Result Comment: Dawson Glucose Reference Range is dependent on time and content of last meal. Glucose of more than 200 mg/dL in a nonstressed, ambulatory subject supports the diagnosis of Diabetes Mellitus. ADA recommended reference range Performed By: #### C OVID-19 MARS, SOFIANEG #### [facility] [address] [place] [address] [place] Potassium [Moles/Vol] 3.6 mmol/L Normal 3.5-5.1 [facility] Comment on above: Performed By: #### C OVID-19 MARS, SOFIANEG #### [facility] [address] [place] [id number] [place] Sodium [Moles/Vol] 137 mmol/L Normal 136-146 [facility] Comment on above: Performed By: #### C OVID-19 MARS, SOFIANEG #### [facility] [address] [place] [address] [place] Urea nitrogen [Mass/Vol] 17 mg/dL Normal 9-23 [facility] Comment on above: Performed By: #### C OVID-19 MARS, SOFIANEG #### [facility] [address] [place] [address] [place] Creatinine and Glomerular fi ltration rate.predicted panel (S/P/Bld)Ordered By: Enedelia Gomez on 03-11-2022 Creatinine [Mass/Vol] 1.28 mg/dL 0.64-1.27 [facility] Estimated glomerular filtrat ion rate (GFR) non- AmericanOrdered By: Enedelia Gomez on 03-11-2022 GFR/1.73 sq M.predicted among non-blacks MDRD (S/P/Bld) [Vol rate/Area] 54 mL/Min [facility] No Panel InformationOrdered By: Enedelia Gomez on 03-11-2022 Estimated GFR () > 60 mL/Min [facility] Comment on above: GFR estimated refere nce range: According to KDOQI guidelines, <60 ml/min/1.73m2 is sufficient to diagnose a patient with chronic kidney disease. Pharmacy Creatinine Clearance (Chem N/A [facility] No Panel Informationon 03-11 10.1\S\10.1 Normal 6.0-15.0 [facility] [employer]u lauro 250 DO Work Phone: 9.9\S\9.9 Normal 8.2-10.2 [facility] [employer] lauro 250 DO Work Phone: Comment on above: PERFORMED BY:[facility] [place], [place] [phone] MEDICAL DIRECTORJAYY SANTA M.D. 30.5\S\30.5 above high threshold 22.0-30.0 [facility] Heart-Sandu lauro 250 DO Work Phone: 100\S\100 Normal 95-114 [facility] Harpreet restrepo 250 DO Work Phone: 3.6\S\3.6 Normal 3.5-5.1 [facility] Harpreet restrepo 250 DO Work Phone: 137\S\137 Normal 136-146 [facility] Harpreet retsrepo 250 DO Work Phone: > 60 Normal [facility] Harpreet restrepo 250 DO Work Phone: Comment on above: GFR estimated refere nce range: According to KDOQI guidelines, <60 ml/min/1.73m2 is sufficient to diagnose a patient with chronic kidney disease. 54\S\54 Normal [facility] Harpreet Acosta DO Work Phone: 1.28\S\1.28 above high threshold 0.64-1.27 [facility] Harpreet restrepo 250 DO Work Phone: 17\S\17 Normal 9-23 [facility] Harpreet restrepo 250 DO Work Phone: 96\S\96 Normal 70-100 [facility] Harpreet restrepo 250 DO Work Phone: Comment on above: Random Glucose Refer ence Range is dependent on time and content of last meal. Glucose of more than 200 mg/dL in a nonstressed, ambulatory subject supports the diagnosis of Diabetes Mellitus. ADA recommended reference range Serum or plasma anion gap de terminationOrdered By: Enedelia Gomez on 03-11-2022 Anion gap [Moles/Vol] 10.1 mmol/L 6.0-15.0 [facility] Serum or plasma calcium alistair urement (mass/volume)Ordered By: Enedelia Gomez on 03-11-2022 Calcium [Mass/Vol] 9.9 mg/dL 8.2-10.2 [facility] Serum or plasma chloride jaymie surement (moles/volume)Ordered By: Enedelia Gomez on 03-11-2022 Chloride [Moles/Vol] 100 mmol/L 95-114 [facility] Serum or plasma glucose alistair urement (mass/volume)Ordered By: Enedelia Gomez on 03-11-2022 Glucose [Mass/Vol] 96 mg/dL 70-100 [facility] Comment on above: ADA recommended refe rence rangeRandom Glucose Reference Range is dependent on time and content of last meal. Glucose of more than 200 mg/dL in a nonstressed, ambulatory subject supports the diagnosis of Diabetes Mellitus. Serum or plasma potassium me asurement (moles/volume)Ordered By: Enedelia Gomez on 03-11-2022 Potassium [Moles/Vol] 3.6 mmol/L 3.5-5.1 [facility] Serum or plasma sodium measu rement (moles/volume)Ordered By: Enedelia Gomez on 03-11-2022 Sodium [Moles/Vol] 137 mmol/L 136-146 [facility] Serum or plasma total carbon dioxide measurement (moles/volume)Ordered By: Enedelia Gomez on 03-11-2022 CO2 [Moles/Vol] 30.5 mmol/L 22.0-30.0 [facility] Serum or plasma urea nitroge n measurement (mass/volume)Ordered By: Enedelia Gomez on 03-11-2022 Urea nitrogen [Mass/Vol] 17 mg/dL 9-23 [facility] Office Visit (Cardiology)on 03-10-2022 Follow-up visit [...] arise. Dr. Mcintyre as scheduled Chief Complaint [facility] f/u: 'seem to be doing fine' IRINEO WALLIS is being seen for follow-up of a hospitalization for dizziness. Patient presents to the office ambulatory with wheeled walker and steady gait. Last evaluated in clinic Dr. Mcintyre July 2021. 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 He denies any palpitations or fast heartbeats. [...] of Cardiac catheterization History of Complete colonoscopy [facility] History of Epidural steroid injection History [...] TabletTAKE 1 (more content not included)... Normal [employer] Tobacco Screening.on 023 Adult depression screening assessment No [facility] [employer] 250 DO Work Phone: Fall risk assessment b) One or more fall s in the last year [facility] [employer] DO Work Phone: Tobacco use status CPHS b) No [facility] [employer] 250 DO Work Phone: Basic Metabolic Panelon 11- Anion gap [Moles/Vol] 11.4 mmol/L Normal 6.0-15.0 [facility] Comment on above: Performed By: #### C BC, BMP #### [facility] [address] Calcium [Mass/Vol] 9.0 mg/dL Normal 8.2-10.2 [facility] Comment on above: Performed By: #### C BC, BMP #### [facility] [address] Chloride [Moles/Vol] 95 mmol/L Normal 95-114 [facility] Comment on above: Performed By: #### C BC, BMP #### [facility] [address] CO2 [Moles/Vol] 29.6 mmol/L Normal 22.0-30.0 [facility] Comment on above: Performed By: #### C BC, BMP #### [facility] [address] Creatinine [Mass/Vol] 1.56 mg/dL High 0.64-1.27 [facility] Comment on above: Performed By: #### C BC, BMP #### [place] [address] [place] Creatinine Clr Calc Pharmacy 39.79 [facility] Comment on above: Result Comment: PERF ORMED BY: [place] [address] PATHOLOGIST BLACK OXIDE OPERATOR JAYY SANTA M.D. Performed By: #### C BC, BMP #### [address] Estimated GFR ( Amarilis 52 [facility] Comment on above: Result Comment: GFR estimated reference range: According to KDOQI guidelines, <60 ml/min/1.73m2 is sufficient to diagnose a patient with chronic kidney disease. Performed By: #### C BC, BMP #### [address] Estimated GFR (Non- Am 43 [facility] Comment on above: Performed By: #### C BC, BMP #### [address] Glucose [Mass/Vol] 87 mg/dL Normal 70-100 [facility] Comment on above: Result Comment: [place] Glucose Reference Range is dependent on time and content of last meal. Glucose of more than 200 mg/dL in a nonstressed, ambulatory subject supports the diagnosis of Diabetes Mellitus. ADA recommended reference range Performed By: #### C BC, BMP #### [facility] [address] Potassium [Moles/Vol] 4.0 mmol/L Normal 3.5-5.1 [facility] Comment on above: Performed By: #### C BC, BMP #### [facility] [address] Sodium [Moles/Vol] 132 mmol/L Low 136-146 [facility] Comment on above: Performed By: #### C BC, BMP #### [facility] [address] Urea nitrogen [Mass/Vol] 29 mg/dL High 9-23 [facility] Comment on above: Performed By: #### C BC, BMP #### [facility] [address] [place] [address] [place] Basophils Auto (Bld) [#/Vol] Ordered By: Raji Ennis on 01-16-2022 Basophils (Bld) [#/Vol] 0.1 10*3/uL 0.0-0.2 [facility] Basophils/100 WBC Auto (Bld) Ordered By: Raji Ennis on 01-16-2022 Basophils/100 WBC (Bld) 1.0 % . [facility] Complete Blood Count Auto Di ffon 01-16-2022 Basophils (Bld) [#/Vol] 0.1 10*3/uL Normal 0.0-0.2 [facility] Comment on above: Result Comment: PERF ORMED BY: [place] [address] PATHOLOGIST BLACK OXIDE OPERATOR JAYY SANTA M.D. Performed By: #### C BC, BMP #### [facility] [address] [place] [address] Basophils/100 WBC (Bld) 1.0 % Normal . [facility] Comment on above: Performed By: #### C BC, BMP #### [address] Eosinophils (Bld) [#/Vol] 0.4 10*3/uL Normal 0.0-0.45 [facility] Comment on above: Performed By: #### C BC, BMP #### [address] Eosinophils/100 WBC (Bld) 5.6 % Normal . [facility] Comment on above: Performed By: #### C KARTIK, BMP #### [address] Erythrocyte distribution width (RBC) [Ratio] 15.3 % High 12.0-14.8 [facility] Comment on above: Performed By: #### C BC, BMP #### [address] Hematocrit (Bld) [Volume fraction] 35.4 % Low 38.8-50.0 [facility] Comment on above: Performed By: #### C BC, BMP #### [address] Hemoglobin (Bld) [Mass/Vol] 11.8 g/dL Low 13.0-17.0 [facility] Comment on above: Performed By: #### C BC, BMP #### [address] Lymphocytes (Bld) [#/Vol] 1.1 10*3/uL Normal 1.00-4.8 [facility] Comment on above: Performed By: #### C BC, BMP #### [address] Lymphocytes/100 WBC (Bld) 17.1 % Normal . [facility] Comment on above: Performed By: #### C BC, BMP #### [address] MCH (RBC) [Entitic mass] 33.2 pg Normal 27.5-35.2 [facility] Comment on above: Performed By: #### C BC, BMP #### [address] MCV (RBC) [Entitic vol] 100.0 fL Normal 83.5-101 [facility] Comment on above: Performed By: #### C BC, BMP #### [address] Mean Corpuscular HGB Conc 33.3 g/dL Normal 32.5-35.6 [facility] Comment on above: Performed By: #### C KARTIK, BMP #### [address] Monocytes (Bld) [#/Vol] 0.8 10*3/uL Normal 0.0-0.8 [facility] Comment on above: Performed By: #### C BC, BMP #### [address] Monocytes/100 WBC (Bld) 11.9 % Normal . [facility] Comment on above: Performed By: #### C KARTIK, BMP #### [address] Neutrophils (Bld) [#/Vol] 4.2 10*3/uL Normal 1.8-7.7 [facility] Comment on above: Performed By: #### C BC, BMP #### [address] Neutrophils/100 WBC (Bld) 64.4 % Normal . [facility] Comment on above: Performed By: #### C BC, BMP #### [address] Nucleated RBC/100 WBC (Bld) [Ratio] 0.0 % Normal 0-0.5 [facility] Comment on above: Performed By: #### C BC, BMP #### [address] Platelet mean volume (Bld) [Entitic vol] 9.1 fL Normal 6.6-10.1 [facility] Comment on above: Performed By: #### C BC, BMP #### [facility] [address] [place] [address] [place] Platelets (Bld) [#/Vol] 195 10*3/uL Normal 150-450 [facility] Comment on above: Performed By: #### C BC, BMP #### [facility] [address] RBC (Bld) [#/Vol] 3.54 10*6/uL Low 3.90-5.60 [facility] Comment on above: Performed By: #### C BC, BMP #### [facility] [address] WBC (Bld) [#/Vol] 6.5 10*3/uL Normal 4.5-11.0 [facility] Comment on above: Performed By: #### C BC, BMP #### [facility] [address] Creatinine and Glomerular fi ltration rate.predicted panel (S/P/Bld)Ordered By: Raji Ennis on 01-16-2022 Creatinine [Mass/Vol] 1.56 mg/dL 0.64-1.27 [facility] Eosinophils Auto (Bld) [#/Vo l]Ordered By: RajiStaufferam on 01-16-2022 Eosinophils (Bld) [#/Vol] 0.4 10*3/uL 0.0-0.45 [facility] Eosinophils/100 WBC Auto (Bl d)Ordered By: Raji Raymon on 01-16-2022 Eosinophils/100 WBC (Bld) 5.6 % . [facility] Erythrocyte distribution wid th Auto (RBC) [Ratio]Ordered By: Raji Ennis on 01-16-2022 Erythrocyte distribution width (RBC) [Ratio] 15.3 % 12.0-14.8 [facility] Estimated glomerular filtrat ion rate (GFR) non- AmericanOrdered By: Raji Ennis on 01-16-2022 GFR/1.73 sq M.predicted among non-blacks MDRD (S/P/Bld) [Vol rate/Area] 43 mL/Min [facility] Hematocrit Auto (Bld) [Volum e fraction]Ordered By: Raji Ennis on 01-16-2022 Hematocrit (Bld) [Volume fraction] 35.4 % 38.8-50.0 [facility] Hemoglobin [Mass/volume] in BloodOrdered By: Raji Ennis on 01-16-2022 Hemoglobin (Bld) [Mass/Vol] 11.8 g/dL 13.0-17.0 [facility] Laboratory - Hematology and Cell countsOrdered By: Raji Ennis on 01-16-2022 Nucleated RBC/100 WBC (Bld) [Ratio] 0.0 % 0-0.5 [facility] Leukocytes [#/volume] in Blo od by Automated countOrdered By: Raji Ennis on 01-16-2022 WBC (Bld) [#/Vol] 6.5 10*3/uL 4.5-11.0 [facility] Lymphocytes Auto (Bld) [#/Vo l]Ordered By: Raji Ennis on 01-16-2022 Lymphocytes (Bld) [#/Vol] 1.1 10*3/uL 1.00-4.8 [facility] Lymphocytes/100 WBC Auto (Bl d)Ordered By: Raji Ennis on 01-16-2022 Lymphocytes/100 WBC (Bld) 17.1 % . [facility] MCH Auto (RBC) [Entitic mass ]Ordered By: Raji Ennis on 01-16-2022 MCH (RBC) [Entitic mass] 33.2 pg 27.5-35.2 [facility] MCHC Auto (RBC) [Mass/Vol]Or dered By: Raji Ennis on 01-16-2022 MCHC (RBC) [Mass/Vol] 33.3 g/dL 32.5-35.6 [facility] MCV Auto (RBC) [Entitic vol] Ordered By: Raji Ennis on 01-16-2022 MCV (RBC) [Entitic vol] 100.0 fL 83.5-101 [facility] Monocytes Auto (Bld) [#/Vol] Ordered By: Raji Raymon on 01-16-2022 Monocytes (Bld) [#/Vol] 0.8 10*3/uL 0.0-0.8 [facility] Monocytes/100 WBC Auto (Bld) Ordered By: Raji Raymon on 01-16-2022 Monocytes/100 WBC (Bld) 11.9 % . [facility] Neutrophils Auto (Bld) [#/Vo l]Ordered By: Raji Raymon on 01-16-2022 Neutrophils (Bld) [#/Vol] 4.2 10*3/uL 1.8-7.7 [facility] Neutrophils/100 WBC Auto (Bl d)Ordered By: Raji Raymon on 01-16-2022 Neutrophils/100 WBC (Bld) 64.4 % . [facility] No Panel InformationOrdered By: RajiRobertson on 01-16-2022 Estimated GFR () 52 mL/Min [facility] Comment on above: GFR estimated refere nce range: According to KDOQI guidelines, <60 ml/min/1.73m2 is sufficient to diagnose a patient with chronic kidney disease. Pharmacy Creatinine Clearance (Chem 39.79 [facility] Platelet mean volume Auto (B ld) [Entitic vol]Ordered By: Raji Raymon on 01-16-2022 Platelet mean volume (Bld) [Entitic vol] 9.1 fL 6.6-10.1 [facility] Platelets Auto (Bld) [#/Vol] Ordered By: Raji Raymon on 01-16-2022 Platelets (Bld) [#/Vol] 195 10*3/uL 150-450 [facility] RBC Auto (Bld) [#/Vol]Ordere d By: Raji Raymon on 01-16-2022 RBC (Bld) [#/Vol] 3.54 10*6/uL 3.90-5.60 [facility] Serum or plasma anion gap de terminationOrdered By: Raji Raymon on 01-16-2022 Anion gap [Moles/Vol] 11.4 mmol/L 6.0-15.0 [facility] Serum or plasma calcium alistair urement (mass/volume)Ordered By: RajiStaufferam on 01-16-2022 Calcium [Mass/Vol] 9.0 mg/dL 8.2-10.2 [facility] Serum or plasma chloride jaymie surement (moles/volume)Ordered By: Raji [facility] on 01-16-2022 Chloride [Moles/Vol] 95 mmol/L 95-114 [facility] Serum or plasma glucose alistair urement (mass/volume)Ordered By: Raji [facility] on 01-16-2022 Glucose [Mass/Vol] 87 mg/dL 70-100 [facility] Comment on above: ADA recommended refe rence rangeRandom Glucose Reference Range is dependent on time and content of last meal. Glucose of more than 200 mg/dL in a nonstressed, ambulatory subject supports the diagnosis of Diabetes Mellitus. Serum or plasma potassium me asurement (moles/volume)Ordered By: Raji [facility] on 01-16-2022 Potassium [Moles/Vol] 4.0 mmol/L 3.5-5.1 [facility] Serum or plasma sodium measu rement (moles/volume)Ordered By: [facility] on 01-16-2022 Sodium [Moles/Vol] 132 mmol/L 136-146 [facility] Serum or plasma total carbon dioxide measurement (moles/volume)Ordered By: Raji [facility] on 01-16-2022 CO2 [Moles/Vol] 29.6 mmol/L 22.0-30.0 [facility] Serum or plasma urea nitroge n measurement (mass/volume)Ordered By: Raji [facility] on 01-16-2022 Urea nitrogen [Mass/Vol] 29 mg/dL 9-23 [facility] Basic Metabolic Panelon 01-05 Anion gap [Moles/Vol] 8.2 mmol/L Normal 6.0-15.0 [facility] Comment on above: Performed By: #### B MP, CBC #### [address] Calcium [Mass/Vol] 8.8 mg/dL Normal 8.2-10.2 [facility] Comment on above: Performed By: #### B MP, CBC #### [facility] [address] [place] [address] [place] Chloride [Moles/Vol] 94 mmol/L Low 95-114 [facility] Comment on above: Performed By: #### B MP, CBC #### [facility] [address] CO2 [Moles/Vol] 31.7 mmol/L High 22.0-30.0 [facility] Comment on above: Performed By: #### B MP, CBC #### [facility] [address] Creatinine [Mass/Vol] 1.50 mg/dL High 0.64-1.27 [facility] Comment on above: Performed By: #### B MP, CBC #### [facility] [address] [place] [address] [place] Creatinine Clr Calc Pharmacy 41.13 [facility] Comment on above: Result Comment: PERF ORMED BY: [place] [address] PATHOLOGIST BLACK OXIDE OPERATOR JAYY SANTA M.D. Performed By: #### B MP, CBC #### [address] Estimated GFR ( Amarilis 54 [facility] Comment on above: Result Comment: GFR estimated reference range: According to KDOQI guidelines, <60 ml/min/1.73m2 is sufficient to diagnose a patient with chronic kidney disease. Performed By: #### B MP, CBC #### [facility] [address] [place] [address] [place] Estimated GFR (Non- Am 45 [facility] Comment on above: Performed By: #### B MP, CBC #### [address] Glucose [Mass/Vol] 87 mg/dL Normal 70-100 [facility] Comment on above: Result Comment: [place] Glucose Reference Range is dependent on time and content of last meal. Glucose of more than 200 mg/dL in a nonstressed, ambulatory subject supports the diagnosis of Diabetes Mellitus. ADA recommended reference range Performed By: #### B MP, CBC #### [address] Potassium [Moles/Vol] 3.9 mmol/L Normal 3.5-5.1 [facility] Comment on above: Performed By: #### B MP, CBC #### [address] Sodium [Moles/Vol] 130 mmol/L Low 136-146 [facility] Comment on above: Performed By: #### B MP, CBC #### [address] Urea nitrogen [Mass/Vol] 29 mg/dL High 9- [facility] Comment on above: Performed By: #### B MP, CBC #### [address] Complete Blood Count Auto Di ffon 01-15-2022 Basophils (Bld) [#/Vol] 0.1 10*3/uL Normal 0.0-0.2 [facility] Comment on above: Result Comment: PERF ORMED BY: [place] [address] PATHOLOGIST BLACK OXIDE OPERATOR JAYY SANTA M.D. Performed By: #### B MP, CBC #### [place] [address] [place] Basophils/100 WBC (Bld) 0.7 % Normal . [facility] Comment on above: Performed By: #### B MP, CBC #### [place] [address] [place] Eosinophils (Bld) [#/Vol] 0.4 10*3/uL Normal 0.0-0.45 [facility] Comment on above: Performed By: #### B MP, CBC #### [address] Eosinophils/100 WBC (Bld) 4.9 % Normal . [facility] Comment on above: Performed By: #### B MP, CBC #### [facility] [address] Erythrocyte distribution width (RBC) [Ratio] 15.3 % High 12.0-14.8 [facility] Comment on above: Performed By: #### B MP, CBC #### [facility] [address] Hematocrit (Bld) [Volume fraction] 34.7 % Low 38.8-50.0 [facility] Comment on above: Performed By: #### B MP, CBC #### [address] Hemoglobin (Bld) [Mass/Vol] 11.7 g/dL Low 13.0-17.0 [facility] Comment on above: Performed By: #### B MP, CBC #### [address] Lymphocytes (Bld) [#/Vol] 1.0 10*3/uL Normal 1.00-4.8 [facility] Comment on above: Performed By: #### B MP, CBC #### [address] Lymphocytes/100 WBC (Bld) 13.2 % Normal . [facility] Comment on above: Performed By: #### B MP, CBC #### [address] MCH (RBC) [Entitic mass] 33.7 pg Normal 27.5-35.2 [facility] Comment on above: Performed By: #### B MP, CBC #### [address] MCV (RBC) [Entitic vol] 99.8 fL Normal 83.5-101 [facility] Comment on above: Performed By: #### B MP, CBC #### [address] Mean Corpuscular HGB Conc 33.8 g/dL Normal 32.5-35.6 [facility] Comment on above: Performed By: #### B MP, CBC #### [facility] [address] [place] [address] [place] Monocytes (Bld) [#/Vol] 0.8 10*3/uL Normal 0.0-0.8 [facility] Comment on above: Performed By: #### B MP, CBC #### [facility] [address] [place] [id number] [place] Monocytes/100 WBC (Bld) 10.1 % Normal . [facility] Comment on above: Performed By: #### B MP, CBC #### [facility] [address] [place] [address] [place] Neutrophils (Bld) [#/Vol] 5.6 10*3/uL Normal 1.8-7.7 [facility] Comment on above: Performed By: #### B MP, CBC #### [facility] [address] Neutrophils/100 WBC (Bld) 71.1 % Normal . [facility] Comment on above: Performed By: #### B MP, CBC #### [facility] [address] [place] [address] [place] Nucleated RBC/100 WBC (Bld) [Ratio] 0.0 % Normal 0-0.5 [facility] Comment on above: Performed By: #### B MP, CBC #### [facility] [address] [place] [address] [place] Platelet mean volume (Bld) [Entitic vol] 9.1 fL Normal 6.6-10.1 [facility] Comment on above: Performed By: #### B MP, CBC #### [facility] [address] [place] [address] [place] Platelets (Bld) [#/Vol] 180 10*3/uL Normal 150-450 [facility] Comment on above: Performed By: #### B MP, CBC #### [facility] [address] [place] [address] [place] RBC (Bld) [#/Vol] 3.48 10*6/uL Low 3.90-5.60 [facility] Comment on above: Performed By: #### B MP, CBC #### [facility] [address] WBC (Bld) [#/Vol] 7.9 10*3/uL Normal 4.5-11.0 [facility] Comment on above: Performed By: #### B MP, CBC #### [facility] [address] [place] [address] Urine culture routineOrdered By: Victor Manuel Reynolds on 01-15-2022 Bacteria identified Cx Nom (U) No Growth 2 Days [facility] CT hip RT wo conon 2 CT hip RT wo con [facility] [place] [address] [place] [address] CT Scan Report Signed Patient: Irineo Wallis Jr MR#: [id number] : 1940 Acct:[id number] Age/Sex: 81 / M ADM Date: 01/09/22 Loc: Room: [address] [place] [address] Type: ADM IN Attending Dr: Raji Ennis [...] Esa Cardoso M.D.01/14/2022 4:23 PM Dictation Location: [place] [address] Transcribed By: [facility] 01/14/22 1623 Dictated By: Esa Cardoso DO 01/14/22 1608 Signed By: 01/14/22 1623 [facility] XR hip RT 1Von 01-14-2022 XR hip RT 1V [facility] [place] [address] [place] [address] XRay Report Signed Patient: Irineo Wallis Jr MR#: [id number] : 1940 Acct:[id number] Age/Sex: 81 / M ADM Date: 01/09/22 Loc: Room: [address] [place] [address] Type: ADM IN Attending Dr: Raji Ennis [...] RECOMMENDED.. Impression dictated by: Ortega Groves Jr., DaDneO.01/14/2022 9:04 AM Dictation Location: [place] [address] Transcribed By: [facility] 01/14/22903 Dictated By: Ortega Groves Jr, DO 01/14/22902 Signed By: 01/14/22903 [facility] Automated erythrocytes count in urine sediment (number/area)Ordered By: Victor Manuel Reynolds on 01-13-2022 RBC Auto (Urine sed) [#/Area] 50-100 [HPF] 0-4 [facility] Automated leukocytes count i n urine sediment (number/area)Ordered By: Victor Manuel Reynolds on 01-13-2022 WBC Auto (Urine sed) [#/Area] 5-9 [HPF] 0-4 [facility] Basic Metabolic Panelon Anion gap [Moles/Vol] 8.3 mmol/L Normal 6.0-15.0 [facility] Comment on above: Performed By: #### B MP, CBC #### [facility] [address] Calcium [Mass/Vol] 8.5 mg/dL Normal 8.2-10.2 [facility] Comment on above: Performed By: #### B MP, CBC #### [facility] [address] [place] [address] [place] Chloride [Moles/Vol] 93 mmol/L Low 95-114 [facility] Comment on above: Performed By: #### B MP, CBC #### [facility] [address] CO2 [Moles/Vol] 32.6 mmol/L High 22.0-30.0 [facility] Comment on above: Performed By: #### B MP, CBC #### [facility] [address] Creatinine [Mass/Vol] 1.44 mg/dL High 0.64-1.27 [facility] Comment on above: Performed By: #### B MP, CBC #### [facility] [address] [place] [address] [place] Creatinine Clr Calc Pharmacy 43.24 [facility] Comment on above: Result Comment: PERF ORMED BY: [place] [address] PATHOLOGIST BLACK OXIDE OPERATOR JAYY SANTA M.D. Performed By: #### B MP, CBC #### [facility] [address] [place] [address] Estimated GFR ( Amarilis 57 [facility] Comment on above: Result Comment: GFR estimated reference range: According to KDOQI guidelines, <60 ml/min/1.73m2 is sufficient to diagnose a patient with chronic kidney disease. Performed By: #### B MP, CBC #### [facility] [address] [place] [address] [place] Estimated GFR (Non- Am 47 [facility] Comment on above: Performed By: #### B MP, CBC #### [facility] [address] Glucose [Mass/Vol] 92 mg/dL Normal 70-100 [facility] Comment on above: Result Comment: [facility] Glucose Reference Range is dependent on time and content of last meal. Glucose of more than 200 mg/dL in a nonstressed, ambulatory subject supports the diagnosis of Diabetes Mellitus. ADA recommended reference range Performed By: #### B MP, CBC #### [address] Potassium [Moles/Vol] 3.9 mmol/L Normal 3.5-5.1 [facility] Comment on above: Performed By: #### B MP, CBC #### [address] Sodium [Moles/Vol] 130 mmol/L Low 136-146 [facility] Comment on above: Performed By: #### B MP, CBC #### [address] Urea nitrogen [Mass/Vol] 24 mg/dL High 9-23 [facility] Comment on above: Performed By: #### B MP, CBC #### [address] Bilirubin Test strip Ql (U)O rdered By: Victor Manuel Reynolds on 01-13-2022 Bilirubin Ql (U) Negative Negative [facility] Color Auto (U)Ordered By: Brigitte Reynolds on 01-13-2022 Color (U) Yellow Yellow [facility] Complete Blood Count Auto Di ffon 01-13-2022 Basophils (Bld) [#/Vol] 0.1 10*3/uL Normal 0.0-0.2 [facility] Comment on above: Result Comment: PERF ORMED BY: [place] [address] PATHOLOGIST BLACK OXIDE OPERATOR JAYY SANTA M.D. Performed By: #### B MP, CBC #### [place] [address] [place] Basophils/100 WBC (Bld) 1.0 % Normal . [facility] Comment on above: Performed By: #### B MP, CBC #### [facility] [address] Eosinophils (Bld) [#/Vol] 0.1 10*3/uL Normal 0.0-0.45 [facility] Comment on above: Performed By: #### B MP, CBC #### [facility] [address] Eosinophils/100 WBC (Bld) 0.7 % Normal . [facility] Comment on above: Performed By: #### B MP, CBC #### [facility] [address] Erythrocyte distribution width (RBC) [Ratio] 15.7 % High 12.0-14.8 [facility] Comment on above: Performed By: #### B MP, CBC #### [facility] [address] Hematocrit (Bld) [Volume fraction] 37.7 % Low 38.8-50.0 [facility] Comment on above: Performed By: #### B MP, CBC #### [facility] [address] Hemoglobin (Bld) [Mass/Vol] 12.4 g/dL Low 13.0-17.0 [facility] Comment on above: Performed By: #### B MP, CBC #### [facility] [address] [place] [address] [place] Lymphocytes (Bld) [#/Vol] 1.2 10*3/uL Normal 1.00-4.8 [facility] Comment on above: Performed By: #### B MP, CBC #### [facility] [address] [place] [address] [place] Lymphocytes/100 WBC (Bld) 13.0 % Normal . [facility] Comment on above: Performed By: #### B MP, CBC #### [facility] [address] [place] [address] [place] MCH (RBC) [Entitic mass] 33.2 pg Normal 27.5-35.2 [facility] Comment on above: Performed By: #### B MP, CBC #### [facility] [address] MCV (RBC) [Entitic vol] 100.8 fL Normal 83.5-101 [facility] Comment on above: Performed By: #### B MP, CBC #### [facility] [address] Mean Corpuscular HGB Conc 33.0 g/dL Normal 32.5-35.6 [facility] Comment on above: Performed By: #### B MP, CBC #### [facility] [address] Monocytes (Bld) [#/Vol] 1.2 10*3/uL High 0.0-0.8 [facility] Comment on above: Performed By: #### B MP, CBC #### [facility] [address] [place] [address] [place] Monocytes/100 WBC (Bld) 13.1 % Normal . [facility] Comment on above: Performed By: #### B MP, CBC #### [facility] [address] [place] [address] [place] Neutrophils (Bld) [#/Vol] 6.8 10*3/uL Normal 1.8-7.7 [facility] Comment on above: Performed By: #### B MP, CBC #### [facility] [address] [place] [address] [place] Neutrophils/100 WBC (Bld) 72.2 % Normal . [facility] Comment on above: Performed By: #### B MP, CBC #### [facility] [address] [place] [address] [place] Nucleated RBC/100 WBC (Bld) [Ratio] 0.1 % Normal 0-0.5 [facility] Comment on above: Performed By: #### B MP, CBC #### [facility] [address] Platelet mean volume (Bld) [Entitic vol] 9.3 fL Normal 6.6-10.1 [facility] Comment on above: Performed By: #### B MP, CBC #### [facility] [address] Platelets (Bld) [#/Vol] 162 10*3/uL Significant change down 150-450 [facility] Comment on above: Performed By: #### B MP, CBC #### [facility] [address] RBC (Bld) [#/Vol] 3.74 10*6/uL Low 3.90-5.60 [facility] Comment on above: Performed By: #### B MP, CBC #### [address] WBC (Bld) [#/Vol] 9.4 10*3/uL Normal 4.5-11.0 [facility] Comment on above: Performed By: #### B MP, CBC #### [address] Dipstick and Microscopicon 1 03-15-2021 Appearance (U) Clear Normal Clear [facility] Comment on above: Order Comment: Name Collection Type:: Chou Catheter Performed By: #### C UU, ADDONUAPLUS #### [address] Bacteria,Urine None Seen Normal None Seen [facility] Comment on above: Order Comment: Name Collection Type:: Chou Catheter Performed By: #### C UU, ADDONUAPLUS #### [address] Bilirubin,Urine Negative Normal Negative [facility] Comment on above: Order Comment: Name Collection Type:: Chou Catheter Performed By: #### C UU, ADDONUAPLUS #### [address] Color (U) Yellow Normal Yellow [facility] Comment on above: Order Comment: Name Collection Type:: Chou Catheter Performed By: #### C UU, ADDONUAPLUS #### [address] Glucose Ql (U) Normal Normal Normal [facility] Comment on above: Order Comment: Name Collection Type:: Chou Catheter Performed By: #### C UU, ADDONUAPLUS #### [address] Hyaline Casts,Urine 0-8 Normal 0-8 [facility] Comment on above: Order Comment: Name Collection Type:: Chou Catheter Result Comment: PERF ORMED BY: [place] [address] PATHOLOGIST BLACK OXIDE OPERATOR JAYY SANTA M.D. Performed By: #### C UU, ADDONUAPLUS #### [address] Ketones Ql (U) Negative Normal Negative [facility] Comment on above: Order Comment: Name Collection Type:: Chou Catheter Performed By: #### C UU, ADDONUAPLUS #### [address] Leukocyte esterase Test strip Ql (U) 2+ High Negative [facility] Comment on above: Order Comment: Name Collection Type:: Chou Catheter Performed By: #### C UU, ADDONUAPLUS #### [address] Nitrite,Urine Negative Normal Negative [facility] Comment on above: Order Comment: Name Collection Type:: Chou Catheter Performed By: #### C UU, ADDONUAPLUS #### [facility] [address] [place] [address] Occult Blood,Urine 3+ High Negative [facility] Comment on above: Order Comment: Name Collection Type:: Chou Catheter Result Comment: PERF ORMED BY: [place] [address] PATHOLOGIST BLACK OXIDE OPERATOR JAYY SANTA M.D. Performed By: #### C UU, ADDONUAPLUS #### [facility] [address] [place] [address] pH (U) 5.5 [pH] Normal 5.0-9.0 [facility] Comment on above: Order Comment: Name Collection Type:: Chou Catheter Performed By: #### C UU, ADDONUAPLUS #### [facility] [address] [place] [address] Protein (U) [Mass/Vol] 30 mg/dL High Negative [facility] Comment on above: Order Comment: Name Collection Type:: Chou Catheter Performed By: #### C UU, ADDONUAPLUS #### [address] RBC,Urine 50-100 High 0-4 [facility] Comment on above: Order Comment: Name Collection Type:: Chou Catheter Performed By: #### C UU, ADDONUAPLUS #### [address] Specificy Lohn,Urine 1.012 Normal 1.001-1.03 0 [facility] Comment on above: Order Comment: Name Collection Type:: Chou Catheter Performed By: #### C UU, ADDONUAPLUS #### [address] Squamous Epithelial Cell,Urine 0-1 Normal 0-2 [facility] Comment on above: Order Comment: Name Collection Type:: Chou Catheter Performed By: #### C UU, ADDONUAPLUS #### [address] Urobilinogen,Urine Normal Normal Normal [facility] Comment on above: Order Comment: Name Collection Type:: Chou Catheter Performed By: #### C UU, ADDONUAPLUS #### [facility] [address] [place] [address] [place] WBC,Urine 5-9 High 0-4 [facility] Comment on above: Order Comment: Name Collection Type:: Chou Catheter Performed By: #### C UU, ADDONUAPLUS #### [address] Ketones Auto test strip (U) [Mass/Vol]Ordered By: Victor Manuel Reynolds on 01-13-2022 Ketones (U) [Mass/Vol] Negative Negative [facility] - UrinalysisOrder ed By: Victor Manuel Gail on 01-13-2022 Hyaline casts LM Ql (Urine sed) 0-8 [LPF] 0-8 [facility] MR lumbar spine wo/w conon 1 03-15-2021 MR lumbar spine wo/w con [facility] [place] [address] [place] [address] MRI Report Signed Patient: Irineo Wallis Jr MR#: [id number] : 1940 Acct:[id number] Age/Sex: 81 / M ADM Date: 01/09/22 Loc: Room: [address] [place] [address] Type: ADM IN Attending Dr: Raji Ennis [...] Esa Cardoso M.D.01/13/2022 12:12 PM Dictation Location: [place] [address] Transcribed By: [facility] 01/13/22 121 Dictated By: Esa Cardoso DO 01/13/22 1205 Signed By: 01/13/22 1212 Normal [facility] Nitrite Test strip Ql (U)Ord ered By: Victor Manuel Reynolds on 01-13-2022 Nitrite Ql (U) Negative Negative [facility] Protein Auto test strip (U) [Mass/Vol]Ordered By: Victor Manuel Reynolds on 01-13-2022 Protein (U) [Mass/Vol] 30 mg/dL Negative [facility] Serum or plasma uric acid me asurement (mass/volume)Ordered By: Victor Manuel Reynolds on 01-13-2022 Urate [Mass/Vol] 4.7 mg/dL 2.6-7.2 [facility] Serum or plasma vancomycin m easurement (mass/volume)Ordered By: Raji Ennis on 01-13-2022 Vancomycin [Mass/Vol] 9.7 ug/mL 5.0-20.0 [facility] Comment on above: Last dose: - Specific gravity Auto test s trip (U) [Rel density]Ordered By: Victor Manuel Reynolds on 01-13-2022 Specific gravity (U) [Rel density] 1.012 1.001-1.03 0 [facility] Squamous epithelial cells de tection in urine sediment by light microscopyOrdered By: Victor Manuel Reynolds on 01-13-2022 Epithelial cells.squamous LM Ql (Urine sed) 0-1 [HPF] 0-2 [facility] Uric Acidon 01-13-2022 Urate [Mass/Vol] 4.7 mg/dL Normal 2.6-7.2 [facility] Comment on above: Result Comment: PERF ORMED BY: [place] [address] PATHOLOGIST BLACK OXIDE OPERATOR JAYY SANTA M.D. Performed By: #### U FIONA #### [facility] [address] [place] [address] Urine Cultureon 01-13-2022 Bacteria identified Cx Nom (U) No Growth 2 Days PERFORMED BY: [place] [address] PATHOLOGIST BLACK OXIDE OPERATOR JAYY SANTA M.D. [facility] Comment on above: Performed By: #### C UU, ADDONUAPLUS #### [facility] [address] [place] [address] Urine bacteria detection by automated methodOrdered By: Victor Manuel Reynolds on 01-13-2022 Bacteria Auto Ql (U) None seen None Seen [facility] Urine clarity by refractomet ry automatedOrdered By: Victor Manuel Reynolds on 01-13-2022 Clarity Refractometry automated (U) Clear Clear [facility] Urine culture routineOrdered By: Victor Manuel Reynolds on 01-13-2022 Bacteria identified Cx Nom (U) No Growth 2 Days [facility] Urine glucose measurement by automated test strip (mass/volume)Ordered By: Victor Manuel Reynodls on 01-13-2022 Glucose Auto test strip (U) [Mass/Vol] Normal mg/dL Normal [facility] Urine hemoglobin detection b y automated test stripOrdered By: Victor Manuel Reynolds on 01-13-2022 Hemoglobin Auto test strip Ql (U) 3+ Negative [facility] Urine leukocyte esterase det ection by automated test stripOrdered By: Victor Manuel Reynolds on 01-13-2022 Leukocyte esterase Auto test strip Ql (U) 2+ Negative [facility] Urobilinogen Auto test strip (U) [Mass/Vol]Ordered By: Victor Manuel Reynolds on 01-13-2022 Urobilinogen (U) [Mass/Vol] Normal mg/dL Normal [facility] Vancomycin,Randomon 01-14-20 Vancomycin,Random 9.7 ug/mL Normal 5.0-20.0 [facility] Comment on above: Order Comment: Date of last dose?: [id number] Time of last dose?: 1530 Result Comment: Last dose: - PERFORMED BY: [place] [address] PATHOLOGIST BLACK OXIDE OPERATOR JAYY SANTA M.D. Performed By: #### C OVID-19 JOSE CREWS #### [facility] [address] pH Auto test strip (U)Ordere d By: Victor Manuel Reynolds on 01-13-2022 pH (U) 5.5 [pH] 5.0-9.0 [facility] Bacterial blood cultureOrder ed By: Raji Ennis on 01-12-2022 Bacteria identified Cx Nom (Bld) NO GROWTH 5 DAYS [facility] Basic Metabolic Panelon 11-0 Anion gap [Moles/Vol] 10.4 mmol/L Normal 6.0-15.0 [facility] Comment on above: Performed By: #### C BC, BMP #### [address] Calcium [Mass/Vol] 8.9 mg/dL Normal 8.2-10.2 [facility] Comment on above: Performed By: #### C BC, BMP #### [address] Chloride [Moles/Vol] 94 mmol/L Low 95-114 [facility] Comment on above: Performed By: #### C BC, BMP #### [facility] [address] [place] [address] CO2 [Moles/Vol] 31.4 mmol/L High 22.0-30.0 [facility] Comment on above: Performed By: #### C BC, BMP #### [facility] [address] Creatinine [Mass/Vol] 1.53 mg/dL High 0.64-1.27 [facility] Comment on above: Performed By: #### C BC, BMP #### [facility] [address] [place] [address] [place] Creatinine Clr Calc Pharmacy 40.96 Normal [facility] Comment on above: Result Comment: PERF ORMED BY: [place] [address] PATHOLOGIST BLACK OXIDE OPERATOR JAYY SANTA M.D. Performed By: #### C BC, BMP #### [address] Estimated GFR ( Amarilis 53 [facility] Comment on above: Result Comment: GFR estimated reference range: According to KDOQI guidelines, <60 ml/min/1.73m2 is sufficient to diagnose a patient with chronic kidney disease. Performed By: #### C BC, BMP #### [address] Estimated GFR (Non- Am 44 [facility] Comment on above: Performed By: #### C BC, BMP #### [address] Glucose [Mass/Vol] 99 mg/dL Normal 70-100 [facility] Comment on above: Result Comment: Dawson Glucose Reference Range is dependent on time and content of last meal. Glucose of more than 200 mg/dL in a nonstressed, ambulatory subject supports the diagnosis of Diabetes Mellitus. ADA recommended reference range Performed By: #### C BC, BMP #### [address] Potassium [Moles/Vol] 3.8 mmol/L Normal 3.5-5.1 [facility] Comment on above: Performed By: #### C BC, BMP #### [place] [address] [place] Sodium [Moles/Vol] 132 mmol/L Low 136-146 [facility] Comment on above: Performed By: #### C BC, BMP #### [address] Urea nitrogen [Mass/Vol] 22 mg/dL Normal 9-23 [facility] Comment on above: Performed By: #### C BC, BMP #### [place] [address] [place] Blood Cultureon 01-12-2022 Bacteria identified Cx Nom (Bld) NO GROWTH 5 DAYS PERFORMED BY: [place] [address] PATHOLOGIST BLACK OXIDE OPERATOR JAYY SANTA M.D. [facility] Comment on above: Performed By: #### C BC, BMP #### [address] Bacteria identified Cx Nom (Bld) NO GROWTH 5 DAYS PERFORMED BY: [place] [address] PATHOLOGIST BLACK OXIDE OPERATOR JAYY SANTA M.D. [facility] Comment on above: Performed By: #### C BC, BMP #### [address] C reactive protein [Mass/vol ume] in Serum or PlasmaOrdered By: Raji Ennis on 01-12-2022 CRP [Mass/Vol] 8.4 mg/dL 0.0-1.0 [facility] C-Reactive Proteinon 022 C-Reactive Protein 8.4 mg/dL High 0.0-1.0 [facility] Comment on above: Order Comment: Coral nt can use prior labs if possible Result Comment: PERF ORMED BY: [place] [address] PATHOLOGIST BLACK OXIDE OPERATOR JAYY SANTA M.D. Performed By: #### C BC, BMP #### [address] Complete Blood Count Auto Di ffon 01-12-2022 Basophils (Bld) [#/Vol] 0.1 10*3/uL Normal 0.0-0.2 [facility] Comment on above: Result Comment: PERF ORMED BY: [place] [address] PATHOLOGIST BLACK OXIDE OPERATOR JAYY SANTA M.D. Performed By: #### C BC, BMP #### [place] [id number] [place] Basophils/100 WBC (Bld) 0.5 % Normal . [facility] Comment on above: Performed By: #### C BC, BMP #### [facility] [address] Eosinophils (Bld) [#/Vol] 0.2 10*3/uL Normal 0.0-0.45 [facility] Comment on above: Performed By: #### C BC, BMP #### [facility] [address] Eosinophils/100 WBC (Bld) 1.9 % Normal . [facility] Comment on above: Performed By: #### C BC, BMP #### [address] Erythrocyte distribution width (RBC) [Ratio] 15.5 % High 12.0-14.8 [facility] Comment on above: Performed By: #### C BC, BMP #### [address] Hematocrit (Bld) [Volume fraction] 38.8 % Normal 38.8-50.0 [facility] Comment on above: Performed By: #### C BC, BMP #### [address] Hemoglobin (Bld) [Mass/Vol] 12.9 g/dL Low 13.0-17.0 [facility] Comment on above: Performed By: #### C BC, BMP #### [place] [address] [place] Lymphocytes (Bld) [#/Vol] 1.2 10*3/uL Normal 1.00-4.8 [facility] Comment on above: Performed By: #### C BC, BMP #### [place] [address] [place] Lymphocytes/100 WBC (Bld) 12.2 % Normal . [facility] Comment on above: Performed By: #### C BC, BMP #### [address] MCH (RBC) [Entitic mass] 33.6 pg Normal 27.5-35.2 [facility] Comment on above: Performed By: #### C BC, BMP #### [facility] [address] MCV (RBC) [Entitic vol] 100.8 fL Normal 83.5-101 [facility] Comment on above: Performed By: #### C BC, BMP #### [facility] [address] Mean Corpuscular HGB Conc 33.3 g/dL Normal 32.5-35.6 [facility] Comment on above: Performed By: #### C BC, BMP #### [facility] [address] Monocytes (Bld) [#/Vol] 0.9 10*3/uL High 0.0-0.8 [facility] Comment on above: Performed By: #### C BC, BMP #### [address] Monocytes/100 WBC (Bld) 9.1 % Normal . [facility] Comment on above: Performed By: #### C BC, BMP #### [facility] [address] Neutrophils (Bld) [#/Vol] 7.7 10*3/uL Normal 1.8-7.7 [facility] Comment on above: Performed By: #### C BC, BMP #### [facility] [address] Neutrophils/100 WBC (Bld) 76.3 % Normal . [facility] Comment on above: Performed By: #### C BC, BMP #### [facility] [address] [place] [address] [place] Nucleated RBC/100 WBC (Bld) [Ratio] 0.1 % Normal 0-0.5 [facility] Comment on above: Performed By: #### C BC, BMP #### [facility] [address] Platelet mean volume (Bld) [Entitic vol] 8.8 fL Normal 6.6-10.1 [facility] Comment on above: Performed By: #### C BC, BMP #### [facility] [address] Platelets (Bld) [#/Vol] 214 10*3/uL Normal 150-450 [facility] Comment on above: Performed By: #### C BC, BMP #### [facility] [address] RBC (Bld) [#/Vol] 3.85 10*6/uL Low 3.90-5.60 [facility] Comment on above: Performed By: #### C BC, BMP #### [facility] [address] WBC (Bld) [#/Vol] 10.1 10*3/uL Normal 4.5-11.0 [facility] Comment on above: Performed By: #### C BC, BMP #### [address] XR chest 1V portableon 01-12 XR chest 1V portable [facility] Main [place] [address] [place] [address] XRay Report Signed Patient: Irineo Wallis Jr MR#: [id number] : 1940 Acct:[id number] Age/Sex: 81 / M ADM Date: 01/09/22 Loc: Room: [address] [place] [address] Type: ADM IN Attending Dr: Raji Ennis [...] Esa Cardoso M.D.01/12/2022 12:47 PM Dictation Location: [place] [address] Transcribed By: [facility] 01/12/22 1247 Dictated By: Esa Cardoso DO 01/12/22 1245 Signed By: 01/12/22 1247 [facility] Albumin [Mass/volume] in Ser um or PlasmaOrdered By: Vikas Mane on 01-11-2022 Albumin [Mass/Vol] 2.9 g/dL 2.9-4.4 [facility] Basic Metabolic Panelon Anion gap [Moles/Vol] 10.6 mmol/L Normal 6.0-15.0 [facility] Comment on above: Performed By: #### C OVID-19 MARS, SOFIANEG #### [facility] [address] [place] [address] [place] Calcium [Mass/Vol] 8.7 mg/dL Normal 8.2-10.2 [facility] Comment on above: Performed By: #### C OVID-19 MARS, SOFIANEG #### [facility] [address] [place] [id number] [place] Chloride [Moles/Vol] 98 mmol/L Normal 95-114 [facility] Comment on above: Performed By: #### C OVID-19 MARS, SOFIANEG #### [facility] [address] [place] [address] [place] CO2 [Moles/Vol] 28.8 mmol/L Normal 22.0-30.0 [facility] Comment on above: Performed By: #### C OVID-19 MARS, SOFIANEG #### [facility] [address] [place] [address] [place] Creatinine [Mass/Vol] 1.49 mg/dL High 0.64-1.27 [facility] Comment on above: Performed By: #### C OVID-19 MARS, SOFIANEG #### [facility] [address] [place] [address] [place] Creatinine Clr Calc Pharmacy 42.37 [facility] Comment on above: Result Comment: PERF ORMED BY: [place] [address] PATHOLOGIST BLACK OXIDE OPERATOR JAYY SANTA M.D. Performed By: #### C OVID-19 MARS, SOFIANEG #### [place] [address] [place] Estimated GFR ( Amarilis 55 [facility] Comment on above: Result Comment: GFR estimated reference range: According to KDOQI guidelines, <60 ml/min/1.73m2 is sufficient to diagnose a patient with chronic kidney disease. Performed By: #### C OVID-19 MARS, SOFIANEG #### [address] Estimated GFR (Non- Am 45 [facility] Comment on above: Performed By: #### C OVID-19 MARS, SOFIANEG #### [address] Glucose [Mass/Vol] 90 mg/dL Normal 70-100 [facility] Comment on above: Result Comment: Dawson om Glucose Reference Range is dependent on time and content of last meal. Glucose of more than 200 mg/dL in a nonstressed, ambulatory subject supports the diagnosis of Diabetes Mellitus. ADA recommended reference range Performed By: #### C OVID-19 MARS, SOFIANEG #### [place] [address] [place] Potassium [Moles/Vol] 3.4 mmol/L Low 3.5-5.1 [facility] Comment on above: Performed By: #### C OVID-19 MARS, SOFIANEG #### [facility] [address] [place] [address] [place] Sodium [Moles/Vol] 134 mmol/L Low 136-146 [facility] Comment on above: Performed By: #### C OVID-19 MARS, SOFIANEG #### [facility] [address] [place] [address] [place] Urea nitrogen [Mass/Vol] 24 mg/dL High 9-23 [facility] Comment on above: Performed By: #### C OVID-19 MARS, SOFIANEG #### [facility] [address] Complete Blood Count Auto Di ffon 01-11-2022 Basophils (Bld) [#/Vol] 0.1 10*3/uL Normal 0.0-0.2 [facility] Comment on above: Result Comment: PERF ORMED BY: [place] [address] PATHOLOGIST BLACK OXIDE OPERATOR JAYY SANTA M.D. Performed By: #### C BC, BMP #### [facility] [address] Basophils/100 WBC (Bld) 0.7 % Normal . [facility] Comment on above: Performed By: #### C BC, BMP #### [facility] [address] Eosinophils (Bld) [#/Vol] 0.2 10*3/uL Normal 0.0-0.45 [facility] Comment on above: Performed By: #### C BC, BMP #### [facility] [address] Eosinophils/100 WBC (Bld) 2.2 % Normal . [facility] Comment on above: Performed By: #### C BC, BMP #### [facility] [address] Erythrocyte distribution width (RBC) [Ratio] 15.5 % High 12.0-14.8 [facility] Comment on above: Performed By: #### C BC, BMP #### [facility] [address] Hematocrit (Bld) [Volume fraction] 38.1 % Low 38.8-50.0 [facility] Comment on above: Performed By: #### C BC, BMP #### [facility] [address] Hemoglobin (Bld) [Mass/Vol] 12.7 g/dL Low 13.0-17.0 [facility] Comment on above: Performed By: #### C BC, BMP #### [facility] [address] [place] [address] [place] Lymphocytes (Bld) [#/Vol] 1.2 10*3/uL Normal 1.00-4.8 [facility] Comment on above: Performed By: #### C BC, BMP #### [facility] [address] [place] [address] [place] Lymphocytes/100 WBC (Bld) 13.7 % Normal . [facility] Comment on above: Performed By: #### C BC, BMP #### [facility] [address] MCH (RBC) [Entitic mass] 33.4 pg Normal 27.5-35.2 [facility] Comment on above: Performed By: #### C BC, BMP #### [address] MCV (RBC) [Entitic vol] 100.6 fL Normal 83.5-101 [facility] Comment on above: Performed By: #### C BC, BMP #### [address] Mean Corpuscular HGB Conc 33.3 g/dL Normal 32.5-35.6 [facility] Comment on above: Performed By: #### C BC, BMP #### [place] [address] [place] Monocytes (Bld) [#/Vol] 0.8 10*3/uL Normal 0.0-0.8 [facility] Comment on above: Performed By: #### C BC, BMP #### [place] [address] [place] Monocytes/100 WBC (Bld) 9.6 % Normal . [facility] Comment on above: Performed By: #### C BC, BMP #### [address] Neutrophils (Bld) [#/Vol] 6.3 10*3/uL Normal 1.8-7.7 [facility] Comment on above: Performed By: #### C BC, BMP #### [facility] [address] [place] [address] [place] Neutrophils/100 WBC (Bld) 73.8 % Normal . [facility] Comment on above: Performed By: #### C KARTIK, BMP #### [facility] [address] [place] [address] [place] Nucleated RBC/100 WBC (Bld) [Ratio] 0.0 % Normal 0-0.5 [facility] Comment on above: Performed By: #### C KARTIK, BMP #### [address] Platelet mean volume (Bld) [Entitic vol] 8.8 fL Normal 6.6-10.1 [facility] Comment on above: Performed By: #### C KARTIK, BMP #### [address] Platelets (Bld) [#/Vol] 177 10*3/uL Normal 150-450 [facility] Comment on above: Performed By: #### C KARTIK, BMP #### [place] [address] [place] RBC (Bld) [#/Vol] 3.78 10*6/uL Low 3.90-5.60 [facility] Comment on above: Performed By: #### C KARTIK, BMP #### [place] [address] [place] WBC (Bld) [#/Vol] 8.5 10*3/uL Normal 4.5-11.0 [facility] Comment on above: Performed By: #### C KARTIK, BMP #### [address] [facility] echo transthoracicon [facility] echo transthoracic [facility] Main [place] [address] [place] [address] Echocardiogram Signed Patient: Irineo Wallis Jr MR#: [id number] : 1940 Acct:[id number] Age/Sex: 81 / M ADM Date: 01/09/22 Loc: Room: [address] [place] [address] Type: DIS IN Attending Dr: Raji Ennis MD Ordering Provider: Dharmesh Zavala DO Date of Service: 01/10/2208/26/499 [facility] echo transthoracic: dyspnea, pleural effusion Copies [...] LV V1 VTI: 16.1 cm Transcribed By: EDMUND Performed At: 01/11/22 0754 Signed By: Robert Thorne MD 01/11/22 0920 Normal [facility] IgA [Mass/volume] in Serum o r PlasmaOrdered By: Vikas Mane on 01-11-2022 IgA [Mass/Vol] 171 mg/dL 61-437 [facility] IgG [Mass/volume] in Serum o r PlasmaOrdered By: Vikas Mane on 01-11-2022 IgG [Mass/Vol] 816 mg/dL 603-1613 [facility] IgM [Mass/volume] in Serum o r PlasmaOrdered By: Vikas Mane on 01-11-2022 IgM [Mass/Vol] 105 mg/dL 15-143 [facility] Comment on above: Performed at: [address] [id number] Director: Patrick Ortiz PhD, Phone: [phone] Immunofixation,Serumon 01-11 Immunofixation, Serum Normal . [facility] Comment on above: Result Comment: No m onoclonality detected. Performed By: #### B MP, CBC #### [facility] [address] Immunoglobulin A, Serum 171 mg/dL Normal 61-437 [facility] Comment on above: Performed By: #### B MP, CBC #### [facility] [address] Immunoglobulin G 816 mg/dL Normal 603-1613 [facility] Comment on above: Performed By: #### B MP, CBC #### [facility] [address] Immunoglobulin M, Serum 105 mg/dL Normal 15-143 [facility] Comment on above: Result Comment: Perf ormed at: [facility] [address] [place] [address] Files Supervisor: Patrick Ortiz PhD, Phone: [phone] Performed By: #### B MP, CBC #### [address] No Panel InformationOrdered By: Vikas Mane on 01-11-2022 Protein Electrophoresis M-Franky Not observed g/dL Not Observed [facility] Protein Electrophoresis Note See comment . [facility] Comment on above: Protein electrophore sis scan will follow via computer,mail, or osd clerk delivery.Performed at: [facility] [id number] Director: Patrick Ortiz PhD, Phone: [phone] Serum Immunofixation See comment . [facility] Comment on above: No monoclonality det ected. Protein Electrophoresis, Ser umon 01-11-2022 Albumin [Mass/Vol] 2.9 g/dL Normal 2.9-4.4 [facility] Comment on above: Performed By: #### B MP, CBC #### [address] Albumin/Globulin [Mass ratio] 1.2 {ratio} Normal 0.7-1.7 [facility] Comment on above: Performed By: #### B MP, CBC #### [place] [address] [place] Hvfep-3-Kptxwknd 0.4 g/dL Normal 0.0-0.4 [facility] Comment on above: Performed By: #### B MP, CBC #### [address] Ljjqx-1-Irlgthuw 0.7 g/dL Normal 0.4-1.0 [facility] Comment on above: Performed By: #### B MP, CBC #### [address] Beta Globulin 0.6 g/dL Low 0.7-1.3 [facility] Comment on above: Performed By: #### B MP, CBC #### [address] Gamma Globulin 0.8 g/dL Normal 0.4-1.8 [facility] Comment on above: Performed By: #### B MP, CBC #### [address] Globulin (S) [Mass/Vol] 2.4 g/dL Normal 2.2-3.9 [facility] Comment on above: Performed By: #### B MP, CBC #### [address] M-Franky Not Observed Normal Not Observed [facility] Comment on above: Performed By: #### B MP, CBC #### [address] Protein [Mass/Vol] 5.3 g/dL Low 6.0-8.5 [facility] Comment on above: Performed By: #### B MP, CBC #### [address] SPE-Note Normal . [facility] Comment on above: Result Comment: Prot ein electrophoresis scan will follow via computer, mail, or osd clerk delivery. Performed at: - [facility] [id number] Files Supervisor: Patrick Ortiz PhD, Phone: [phone] PERFORMED BY: [place] [address] PATHOLOGIST BLACK OXIDE OPERATOR JAYY SANTA M.D. Performed By: #### B MP, CBC #### [address] Protein [Mass/volume] in Ser um or PlasmaOrdered By: Vikas Mane on 01-11-2022 Protein [Mass/Vol] 5.3 g/dL 6.0-8.5 [facility] Serum globulin measurement ( mass/volume)Ordered By: Vikas Mane on 01-11-2022 Globulin (S) [Mass/Vol] 2.4 g/dL 2.2-3.9 [facility] Serum or plasma albumin/glob ulin mass ratioOrdered By: Vikas Mane on 01-11-2022 Albumin/Globulin [Mass ratio] 1.2 {ratio} 0.7-1.7 [facility] Serum or plasma alpha 1 glob ulin measurement by electrophoresis (mass/volume)Ordered By: Vikas Mane on 01-11-2022 Alpha 1 globulin Elph [Mass/Vol] 0.4 g/dL 0.0-0.4 [facility] Serum or plasma alpha 2 glob ulin measurement by electrophoresis (mass/volume)Ordered By: Vikas Mane 01-11-2022 Alpha 2 globulin Elph [Mass/Vol] 0.7 g/dL 0.4-1.0 [facility] Serum or plasma beta globuli n measurement by electrophoresis (mass/volume)Ordered By: Vikas Mane on 01-11-2022 Beta globulin Elph [Mass/Vol] 0.6 g/dL 0.7-1.3 [facility] Serum or plasma gamma globul in measurement by electrophoresis (mass/volume)Ordered By: Vikas Mane on 01-11-2022 Gamma globulin Elph [Mass/Vol] 0.8 g/dL 0.4-1.8 [facility] US carotid doppler BIon US carotid doppler BI [facility] Main [place] [address] [place] [address] Ultrasound Report Signed Patient: JadynroelIrineo Jr MR#: [id number] : 1940 Acct:[id number] Age/Sex: 81 / M ADM Date: 01/09/22 Loc: Room: 2H5156-0 Type: ADM IN Attending Dr: Dharemsh Zavala DO Ordering Provider: Dharmesh Zavala DO [...] Deo Jamison MD01/11/2022 10:29 AM Dictation Location: [place] [address] Tech: Criss Avery Transcribed By: NOLVIA 01/11/22 1029 Dictated By: Deo Jamison MD 01/11/22 1029 Signed By: 01/11/22 1029 Normal [facility] A1C with Estimated Average Reece malloy 01-10-2022 Glucose [Mass/Vol] 114 mg/dL Normal [facility] Comment on above: Result Comment: PERF ORMED BY: [place] [address] PATHOLOGIST BLACK OXIDE OPERATOR JAYY SANTA M.D. Performed By: #### C BC, BMP #### [address] HbA1c (Bld) [Mass fraction] 5.6 % Normal 4.3-5.6 [facility] Comment on above: Result Comment: Incr eased risk for diabetes: 5.7 - 6.4 diabetes: >6.4 glycemic control for adults with diabetes: <7.0 Performed By: #### C BC, BMP #### [facility] [address] [place], [place] [id number] [facility] B-Type Natriuretic Peptideon 01-10-2022 Natriuretic peptide B (Bld) [Mass/Vol] 679.0 pg/mL High 5-100 [facility] Comment on above: Result Comment: PERF ORMED BY: [place] [address] PATHOLOGIST BLACK OXIDE OPERATOR JAYY SANTA M.D. Performed By: #### B MP, CBC #### [facility] [address] [place], [place] [id number] [facility] Basic Metabolic Panelon Anion gap [Moles/Vol] 12.1 mmol/L Normal 6.0-15.0 [facility] Comment on above: Performed By: #### C BC, BMP #### [facility] [address] [place] [address] [place] Calcium [Mass/Vol] 8.6 mg/dL Normal 8.2-10.2 [facility] Comment on above: Performed By: #### C BC, BMP #### [facility] [address] [place] [address] [place] Chloride [Moles/Vol] 99 mmol/L Normal 95-114 [facility] Comment on above: Performed By: #### C BC, BMP #### [facility] [address] [place] [address] [place] CO2 [Moles/Vol] 26.7 mmol/L Normal 22.0-30.0 [facility] Comment on above: Performed By: #### C BC, BMP #### [facility] [address] [place] [address] [place] Creatinine [Mass/Vol] 1.60 mg/dL High 0.64-1.27 [facility] Comment on above: Performed By: #### C BC, BMP #### [facility] [address] [place] [address] [place] Creatinine Clr Calc Pharmacy 39.46 [facility] Comment on above: Performed By: #### C BC, BMP #### [facility] [address] [place] [id number] [facility] Estimated GFR ( Amarilis 51 [facility] Comment on above: Result Comment: GFR estimated reference range: According to KDOQI guidelines, <60 ml/min/1.73m2 is sufficient to diagnose a patient with chronic kidney disease. Performed By: #### C BC, BMP #### [facility] [address] [place] [address] [place] Estimated GFR (Non- Am 42 [facility] Comment on above: Performed By: #### C BC, BMP #### [facility] [address] [place] [id number] [place] Glucose [Mass/Vol] 97 mg/dL Normal 70-100 [facility] Comment on above: Result Comment: [place] om Glucose Reference Range is dependent on time and content of last meal. Glucose of more than 200 mg/dL in a nonstressed, ambulatory subject supports the diagnosis of Diabetes Mellitus. ADA recommended reference range Performed By: #### C BC, BMP #### [address] Potassium [Moles/Vol] 3.8 mmol/L Normal 3.5-5.1 [facility] Comment on above: Performed By: #### C BC, BMP #### [address] Sodium [Moles/Vol] 134 mmol/L Low 136-146 [facility] Comment on above: Performed By: #### C BC, BMP #### [address] Urea nitrogen [Mass/Vol] 23 mg/dL Normal 9-23 [facility] Comment on above: Performed By: #### C BC, BMP #### [address] Complete Blood Count Auto Di ffon 01-10-2022 Basophils (Bld) [#/Vol] 0.1 10*3/uL Normal 0.0-0.2 [facility] Comment on above: Result Comment: PERF ORMED BY: [place] [address] PATHOLOGIST BLACK OXIDE OPERATOR JAYY SANTA M.D. Performed By: #### C BC, BMP #### [address] Basophils/100 WBC (Bld) 1.0 % Normal . [facility] Comment on above: Performed By: #### C BC, BMP #### [place] [address] [place] Eosinophils (Bld) [#/Vol] 0.0 10*3/uL Normal 0.0-0.45 [facility] Comment on above: Performed By: #### C BC, BMP #### [place] [address] [place] Eosinophils/100 WBC (Bld) 0.3 % Normal . [facility] Comment on above: Performed By: #### C BC, BMP #### [address] Erythrocyte distribution width (RBC) [Ratio] 15.8 % High 12.0-14.8 [facility] Comment on above: Performed By: #### C BC, BMP #### [address] Hematocrit (Bld) [Volume fraction] 37.7 % Low 38.8-50.0 [facility] Comment on above: Performed By: #### C BC, BMP #### [address] Hemoglobin (Bld) [Mass/Vol] 12.5 g/dL Low 13.0-17.0 [facility] Comment on above: Performed By: #### C BC, BMP #### [address] Lymphocytes (Bld) [#/Vol] 1.0 10*3/uL Normal 1.00-4.8 [facility] Comment on above: Performed By: #### C BC, BMP #### [address] Lymphocytes/100 WBC (Bld) 10.5 % Normal . [facility] Comment on above: Performed By: #### C BC, BMP #### [address] MCH (RBC) [Entitic mass] 33.6 pg Normal 27.5-35.2 [facility] Comment on above: Performed By: #### C BC, BMP #### [address] MCV (RBC) [Entitic vol] 101.5 fL High 83.5-101 [facility] Comment on above: Performed By: #### C BC, BMP #### [address] Mean Corpuscular HGB Conc 33.1 g/dL Normal 32.5-35.6 [facility] Comment on above: Performed By: #### C BC, BMP #### [facility] [address] [place] [address] [place] Monocytes (Bld) [#/Vol] 1.0 10*3/uL High 0.0-0.8 [facility] Comment on above: Performed By: #### C BC, BMP #### [facility] [address] [place] [address] [place] Monocytes/100 WBC (Bld) 10.7 % Normal . [facility] Comment on above: Performed By: #### C BC, BMP #### [facility] [address] [place] [address] [place] Neutrophils (Bld) [#/Vol] 7.3 10*3/uL Normal 1.8-7.7 [facility] Comment on above: Performed By: #### C BC, BMP #### [facility] [address] [place] [address] [place] Neutrophils/100 WBC (Bld) 77.5 % Normal . [facility] Comment on above: Performed By: #### C BC, BMP #### [facility] [address] [place] [address] [place] Nucleated RBC/100 WBC (Bld) [Ratio] 0.0 % Normal 0-0.5 [facility] Comment on above: Performed By: #### C BC, BMP #### [facility] [address] [place] [address] [place] Platelet mean volume (Bld) [Entitic vol] 8.6 fL Normal 6.6-10.1 [facility] Comment on above: Performed By: #### C BC, BMP #### [facility] [address] [place] [address] [place] Platelets (Bld) [#/Vol] 167 10*3/uL Normal 150-450 [facility] Comment on above: Performed By: #### C BC, BMP #### [facility] [address] [place] [address] [place] RBC (Bld) [#/Vol] 3.71 10*6/uL Low 3.90-5.60 [facility] Comment on above: Performed By: #### C BC, BMP #### [facility] [address] WBC (Bld) [#/Vol] 9.5 10*3/uL Normal 4.5-11.0 [facility] Comment on above: Performed By: #### C BC, BMP #### [facility] [address] ECG 12 lead ECGon 01-10-2022 ECG 12 lead ECG [facility] Main [place] [address] [place] [address] Electrocardiograph Report Signed Patient: Irineo Wallis Jr MR#: [id number] : 1940 Acct:[id number] Age/Sex: 81 / M ADM Date: 01/09/22 Loc: Room: [address] [place] [address] Type: DIS IN Attending Dr: Raji Ennis [...] no longer present Confirmed by RAJENDRA TIDWELL [facility], MARV ([id number]) on 01/10/2022 10:31:45 AM Referred By: Electronically Signed By:MARV DREW MD FAC Transcribed By: MUS Signed By Marv Drew MD, FACC 01/10/22 1031 [facility] Folate [Mass/volume] in Seru m or PlasmaOrdered By: Dharmesh Zavala on 01-10-2022 Folate [Mass/Vol] 8.8 ng/mL >5.9 [facility] Comment on above: Folate reference ran ge: >5.9 ng/mlThe WHO technical consultation on folate and vitamin [id number] has determined that folate concentrations lessthan 4 ng/ml are considered deficient. Glucose mean value [Mass/vol ume] in Blood Estimated from glycated hemoglobinOrdered By: Dharmesh Zavala on 01-10-2022 Average glucose Estimated from glycated hemoglobin (Bld) [Mass/Vol] 114 mg/dL [facility] Hemoglobin A1c percentageOrd ered By: Dharmesh Zavala on 01-10-2022 HbA1c (Bld) [Mass fraction] 5.6 % 4.3-5.6 [facility] Comment on above: Increased risk for d iabetes: 5.7 - 6.4diabetes: >6.4glycemic control for adults with diabetes: <7.0 Ironon 01-10-2022 Iron [Mass/Vol] 13 ug/dL Low 40-160 [facility] Comment on above: Performed By: #### C BC, BMP #### [facility] [address] Iron [Mass/volume] in Serum or PlasmaOrdered By: Dharmesh Zavala on 01-10-2022 Iron [Mass/Vol] 13 ug/dL 40-160 [facility] Laboratory - Chemistry and C hemistry - challengeOrdered By: Dharmesh Zavala on 01-10-2022 Cobalamin (Vitamin B12) [Mass/Vol] 458 pg/mL 180-914 [facility] Magnesium [Mass/Vol] 1.9 mg/dL 1.6-2.6 [facility] Natriuretic peptide B (Bld) [Mass/Vol] 679.0 pg/mL 5-100 [facility] Magnesiumon 01-10-2022 Magnesium [Mass/Vol] 1.9 mg/dL Normal 1.6-2.6 [facility] Comment on above: Performed By: #### C BC, BMP #### [facility] [address] TSH DL <= 0.005 mIU/L QnOrde red By: Dharmesh Zavala on 01-10-2022 TSH Qn 3.99 m[IU]/L 0.45-5.33 [facility] Thyroid Stimulating Hormoneo n 01-10-2022 TSH Qn 3.99 m[IU]/L Normal 0.45-5.33 [facility] Comment on above: Result Comment: PERF ORMED BY: [place] [address] PATHOLOGIST BLACK OXIDE OPERATOR JAYY SANTA M.D. Performed By: #### C BC, BMP #### [place] [id number] [facility] Troponin I High Sensitivityo n 01-10-2022 Troponin I High Sensitivity 110 pg/mL Off scale high 0-20 [facility] Comment on above: Result Comment: Resu lts called at 0808 on 01/10/22 PERFORMED BY: [place] [address] PATHOLOGIST BLACK OXIDE OPERATOR JAYY SANTA M.D. Performed By: #### C BC, BMP #### [address] Troponin I.cardiac [Mass/vol ume] in Serum or Plasma by High sensitivity methodOrdered By: Dharmesh Zavala on 01-10-2022 Troponin I.cardiac High sensitivity method [Mass/Vol] 110 pg/mL 0-20 [facility] Comment on above: Results calledat 080 8 on 01/10/22 US renal BIon 01-10-2022 US renal BI [facility] Main [address] [address] Ultrasound Report Signed Patient: Irineo Wallis MR#: [id number] : 1940 Acct:[id number] Age/Sex: 81 / M ADM Date: 01/09/22 Loc: Room: [address] [place] [address] Type: ADM IN Attending Dr: Dharmesh Zavala [...] Esa Cardoso M.D.01/10/2022 9:07 AM Dictation Location: [place] [address] Tech: Criss Avery Transcribed By: NOLVIA 01/10/22906 Dictated By: Esa Cardoso DO 01/10/22905 Signed By: 01/10/22906 Normal [facility] Vit. B12/Folate Profileon Cobalamin (Vitamin B12) [Mass/Vol] 458 pg/mL Normal 180-914 [facility] Comment on above: Performed By: #### C KARTIK, BMP #### [facility] [address] [place] [address] Folate 8.8 ng/mL Normal >5.9 [facility] Comment on above: Result Comment: Suzette te reference range: >5.9 ng/ml The WHO technical consultation on folate and vitamin b12 deficiencies has determined that folate concentrations less than 4 ng/ml are considered deficient. Performed By: #### C BC, BMP #### [facility] [address] [place] [address] Activated partial thrombopla stin time (aPTT) in platelet poor plasma by coagulation aOrdered By: Victor Manuel Paiz on 01-09-2022 aPTT Coag (PPP) [Time] 39.1 s 25.1-36.5 [facility] Automated erythrocytes count in urine sediment (number/area)Ordered By: Victor Manule Paiz on 01-09-2022 RBC Auto (Urine sed) [#/Area] 0-1 [HPF] 0-4 [facility] Automated leukocytes count i n urine sediment (number/area)Ordered By: Victor Manuel Paiz on 01-09-2022 WBC Auto (Urine sed) [#/Area] 5-9 [HPF] 0-4 [facility] B-Type Natriuretic Peptideon 01-09-2022 Natriuretic peptide B (Bld) [Mass/Vol] 1810.0 pg/mL High 5-100 [facility] Comment on above: Result Comment: PERF ORMED BY: [place] [address] PATHOLOGIST BLACK OXIDE OPERATOR JAYY SANTA M.D. Performed By: #### B MP, CBC #### [facility] [address] Basic Metabolic Panelon 110 Anion gap [Moles/Vol] 14.9 mmol/L Normal 6.0-15.0 [facility] Comment on above: Performed By: #### B MP, CBC #### [facility] [address] Calcium [Mass/Vol] 9.2 mg/dL Normal 8.2-10.2 [facility] Comment on above: Performed By: #### B MP, CBC #### [facility] [address] [place] [address] [place] Chloride [Moles/Vol] 100 mmol/L Normal 95-114 [facility] Comment on above: Performed By: #### B MP, CBC #### [facility] [address] CO2 [Moles/Vol] 25.2 mmol/L Normal 22.0-30.0 [facility] Comment on above: Performed By: #### B MP, CBC #### [facility] [address] [place] [address] [place] Creatinine [Mass/Vol] 1.62 mg/dL High 0.64-1.27 [facility] Comment on above: Performed By: #### B MP, CBC #### [facility] [address] [place] [address] [place] Creatinine Clr Calc Pharmacy 39.44 Normal [facility] Comment on above: Result Comment: PERF ORMED BY: [facility] [address] [place] [address] PATHOLOGIST BLACK OXIDE OPERATOR JAYY SANTA M.D. Performed By: #### B MP, CBC #### [address] Estimated GFR ( Amarilis 50 [facility] Comment on above: Result Comment: GFR estimated reference range: According to KDOQI guidelines, <60 ml/min/1.73m2 is sufficient to diagnose a patient with chronic kidney disease. Performed By: #### B MP, CBC #### [address] Estimated GFR (Non- Am 41 [facility] Comment on above: Performed By: #### B MP, CBC #### [address] Glucose [Mass/Vol] 99 mg/dL Normal 70-100 [facility] Comment on above: Result Comment: [place] Glucose Reference Range is dependent on time and content of last meal. Glucose of more than 200 mg/dL in a nonstressed, ambulatory subject supports the diagnosis of Diabetes Mellitus. ADA recommended reference range Performed By: #### B MP, CBC #### [address] Potassium [Moles/Vol] 4.1 mmol/L Normal 3.5-5.1 [facility] Comment on above: Performed By: #### B MP, CBC #### [place] [address] [place] Sodium [Moles/Vol] 136 mmol/L Normal 136-146 [facility] Comment on above: Performed By: #### B MP, CBC #### [address] Urea nitrogen [Mass/Vol] 21 mg/dL Normal 9-23 [facility] Comment on above: Performed By: #### B MP, CBC #### [place] [address] [place] Basophils Auto (Bld) [#/Vol] Ordered By: Victor Manuel Paiz on 01-09-2022 Basophils (Bld) [#/Vol] 0.1 10*3/uL 0.0-0.2 [facility] Basophils/100 WBC Auto (Bld) Ordered By: Victor Manuel Paiz on 01-09-2022 Basophils/100 WBC (Bld) 1.0 % . [facility] Bilirubin Test strip Ql (U)O rdered By: Victor Manuel Paiz on 01-09-2022 Bilirubin Ql (U) Negative Negative [facility] COVID-19 Antigenon COVID-19 Antigen Healthcare Worker?: [...] developed and its performance characteristic determined by [employer] and validated at [facility]. This test has not been FDA [...] for SARS Antigen by MADHAVI PERFORMED BY: [place] [address] [place] [address] PATHOLOGIST BLACK OXIDE OPERATOR JAYY SANTA M.D. Normal [facility] Comment on above: Performed By: #### C OVID-19 MARS, SOFIANEG #### [facility] [address] [place] [address] COVID-19 FRMCon 01-09-2022 SARS-CoV-2 (COVID-19) RNA SMITHA+probe Ql (Unsp spec) Negative Normal Negative [facility] Comment on above: Order Comment: Healt hcare Worker?: N Result Comment: Testing for SARS-CoV-2 by RT-PCR This test was developed and its performance characteristics determined by [employer]) and validated at the [facility]. This test has not been FDA [...] is terminated or revoked sooner. PERFORMED BY: [place] [address] PATHOLOGIST BLACK OXIDE OPERATOR JAYY SANTA M.D. Performed By: #### B MP, CBC #### [facility] [address] [place] [address] COVID-19 Positive/NegativeOr dered By: Victor Manuel Paiz on 01-09-2022 SARS-CoV-2 (COVID-19) N gene SMITHA+probe Ql (Resp) Negative Negative [facility] Comment on above: Testing for SARS-CoV -2 by RT-PCRThis test was developed and its performance characteristics determined by [employer] ([employer]) and validated at the [facility]. This test has not been FDA [...] (COVID-19) Ag IA.rapid Ql (Resp) Negative Negative [facility] Comment on above: This is a duplicate Mars SARS Antigen (MADHAVI) result to be used for statistical tracking purpose only. CT cervical spine wo conon 1 03-11-2021 CT cervical spine wo [facility] [place] [address] CT Scan Report Signed Patient: Irineo Wallis Jr MR#: [id number] : 1940 Acct:[id number] Age/Sex: 81 / M ADM Date: 01/09/22 Loc: ER Room: Type: [facility] ER Attending Dr: Copies to: Victor [...] Esa Cardoso M.D.01/09/2022 1:02 PM Dictation Location: [facility] Transcribed By: NOLVIA 01/09/22 1302 Dictated By: Esa Cardoso DO 01/09/22 1300 Signed By: 01/09/22 1302 Normal [facility] CT head/brain wo conon 01-09 CT head/brain wo con [facility] Main [place] [address] [place] [address] CT Scan Report Signed Patient: Irineo Wallis Jr MR#: [id number] : 1940 Acct:[id number] Age/Sex: 81 / M ADM Date: 01/09/22 Loc: ER Room: Type: [facility] ER Attending Dr: Copies to: Victor [...] DO 01/09/22 1259 Signed By: 01/09/[address] [facility] [address] lumbar spine wo conon CT lumbar spine wo con [facility] [place] [address] CT Scan Report Signed Patient: Irineo Wallis Jr MR#: [id number] : 1940 Acct:[id number] Age/Sex: 81 / M ADM Date: 01/09/22 Loc: ER Room: Type: [facility] Attending Dr: Copies to: Victor Manuel Paiz [...] 1:11 PM Dictation Location: [facility] Transcribed By: ONLVIA 01/09/22 1311 Dictated By: Esa Cardoso DO 01/09/22 1309 Signed By: 01/09/[address] [facility] [address] thoracic spine wo conon 1 03-11-2021 CT thoracic spine wo con [facility] [place] [address] CT Scan Report Signed Patient: Irineo Wallis Jr MR#: [id number] : 1940 Acct:[id number] Age/Sex: 81 / M ADM Date: 01/09/22 Loc: ER Room: Type: [facility] ER Attending Dr: Copies to: Victor [...] Esa Cardoso M.D.01/09/2022 1:06 PM Dictation Location: [place] [address] Transcribed By: [facility] 01/09/22 1306 Dictated By: Esa Cardoso DO 01/09/22 1304 Signed By: 01/09/22 1306 Normal [facility] Color Auto (U)Ordered By: Brigitte Paiz on 01-09-2022 Color (U) Yellow Yellow [facility] Complete Blood Count Auto Di ffon 01-09-2022 Basophils (Bld) [#/Vol] 0.1 10*3/uL Normal 0.0-0.2 [facility] Comment on above: Result Comment: PERF ORMED BY: [address] [place] [address] PATHOLOGIST BLACK OXIDE OPERATOR JAYY SANTA M.D. Performed By: #### B MP, CBC #### [address] [place] [address] [place] Basophils/100 WBC (Bld) 1.0 % Normal . [facility] Comment on above: Performed By: #### B MP, CBC #### [address] Eosinophils (Bld) [#/Vol] 0.0 10*3/uL Normal 0.0-0.45 [facility] Comment on above: Performed By: #### B MP, CBC #### [address] Eosinophils/100 WBC (Bld) 0.1 % Normal . [facility] Comment on above: Performed By: #### B MP, CBC #### [address] Erythrocyte distribution width (RBC) [Ratio] 15.9 % High 12.0-14.8 [facility] Comment on above: Performed By: #### B MP, CBC #### [address] Hematocrit (Bld) [Volume fraction] 36.5 % Low 38.8-50.0 [facility] Comment on above: Performed By: #### B MP, CBC #### [address] Hemoglobin (Bld) [Mass/Vol] 12.1 g/dL Low 13.0-17.0 [facility] Comment on above: Performed By: #### B MP, CBC #### [address] Lymphocytes (Bld) [#/Vol] 0.8 10*3/uL Low 1.00-4.8 [facility] Comment on above: Performed By: #### B MP, CBC #### [address] Lymphocytes/100 WBC (Bld) 13.5 % Normal . [facility] Comment on above: Performed By: #### B MP, CBC #### [address] MCH (RBC) [Entitic mass] 33.7 pg Normal 27.5-35.2 [facility] Comment on above: Performed By: #### B MP, CBC #### [address] MCV (RBC) [Entitic vol] 101.5 fL High 83.5-101 [facility] Comment on above: Performed By: #### B MP, CBC #### [address] Mean Corpuscular HGB Conc 33.2 g/dL Normal 32.5-35.6 [facility] Comment on above: Performed By: #### B MP, CBC #### [address] Monocytes (Bld) [#/Vol] 0.9 10*3/uL High 0.0-0.8 [facility] Comment on above: Performed By: #### B MP, CBC #### [address] Monocytes/100 WBC (Bld) 14.2 % Normal . [facility] Comment on above: Performed By: #### B MP, CBC #### [address] Neutrophils (Bld) [#/Vol] 4.3 10*3/uL Normal 1.8-7.7 [facility] Comment on above: Performed By: #### B MP, CBC #### [address] Neutrophils/100 WBC (Bld) 71.2 % Normal . [facility] Comment on above: Performed By: #### B MP, CBC #### [address] Nucleated RBC/100 WBC (Bld) [Ratio] 0.1 % Normal 0-0.5 [facility] Comment on above: Performed By: #### B MP, CBC #### [address] Platelet mean volume (Bld) [Entitic vol] 8.3 fL Normal 6.6-10.1 [facility] Comment on above: Performed By: #### B MP, CBC #### [address] Platelets (Bld) [#/Vol] 162 10*3/uL Normal 150-450 [facility] Comment on above: Performed By: #### B MP, CBC #### [address] RBC (Bld) [#/Vol] 3.59 10*6/uL Low 3.90-5.60 [facility] Comment on above: Performed By: #### B MP, CBC #### [address] WBC (Bld) [#/Vol] 6.0 10*3/uL Normal 4.5-11.0 [facility] Comment on above: Performed By: #### B MP, CBC #### [address] Creatine Kinaseon 01-09-2022 CK [Catalytic activity/Vol] 231 U/L Normal 22-269 [facility] Comment on above: Performed By: #### B MP, CBC #### [address] Creatine kinase [Enzymatic a ctivity/volume] in Serum or PlasmaOrdered By: Victor Manuel Paiz on 01-09-2022 CK [Catalytic activity/Vol] 231 U/L 22269 [facility] Creatinine Kinase MBon 01-09 CK.MB [Mass/Vol] 5.4 ng/mL Normal 0.6-6.3 [facility] Comment on above: Performed By: #### B MP, CBC #### [address] CKMB Relative Index 2.3 % Normal 0.00-2.50 [facility] Comment on above: Performed By: #### B MP, CBC #### [facility] [address] [place] [address] [place] Creatinine and Glomerular fi ltration rate.predicted panel (S/P/Bld)Ordered By: Victor Manuel Paiz on 01-09-2022 Creatinine [Mass/Vol] 1.62 mg/dL 0.64-1.27 [facility] Dipstick and Microscopicon 1 03-11-2021 Appearance (U) Cloudy Critically abnormal Clear [facility] Comment on above: Order Comment: Name Collection Type:: Clean-Voided Midstream Performed By: #### B MP, CBC #### [facility] [address] [place] [address] [place] Bacteria,Urine None Seen Normal None Seen [facility] Comment on above: Order Comment: Name Collection Type:: Clean-Voided Midstream Performed By: #### B MP, CBC #### [facility] [address] [place] [address] [place] Bilirubin,Urine Negative Normal Negative [facility] Comment on above: Order Comment: Name Collection Type:: Clean-Voided Midstream Performed By: #### B MP, CBC #### [facility] [address] [place] [address] [place] Color (U) Yellow Normal Yellow [facility] Comment on above: Order Comment: Name Collection Type:: Clean-Voided Midstream Performed By: #### B MP, CBC #### [facility] [address] [place], [place] [id number] [place] Glucose Ql (U) Normal Normal Normal [facility] Comment on above: Order Comment: Name Collection Type:: Clean-Voided Midstream Performed By: #### B MP, CBC #### [facility] [address] [place] [id number] [place] Hyaline Casts,Urine 0-8 Normal 0-8 [facility] Comment on above: Order Comment: Name Collection Type:: Clean-Voided Midstream Performed By: #### B MP, CBC #### [facility] [address] [place] [id number] [place] Ketones Ql (U) Trace High Negative [facility] Comment on above: Order Comment: Name Collection Type:: Clean-Voided Midstream Performed By: #### B MP, CBC #### [facility] [address] Leukocyte esterase Test strip Ql (U) 2+ High Negative [facility] Comment on above: Order Comment: Name Collection Type:: Clean-Voided Midstream Performed By: #### B MP, CBC #### [facility] [address] [place] [address] [place] Nitrite,Urine Negative Normal Negative [facility] Comment on above: Order Comment: Name Collection Type:: Clean-Voided Midstream Performed By: #### B MP, CBC #### [address] Occult Blood,Urine Negative Normal Negative [facility] Comment on above: Order Comment: Name Collection Type:: Clean-Voided Midstream Result Comment: PERF ORMED BY: [place] [address] PATHOLOGIST BLACK OXIDE OPERATOR JAYY SANTA M.D. Performed By: #### B MP, CBC #### [address] pH (U) 5.5 [pH] Normal 5.0-9.0 [facility] Comment on above: Order Comment: Name Collection Type:: Clean-Voided Midstream Performed By: #### B MP, CBC #### [place] [address] [place] Protein,Urine Trace High Negative [facility] Comment on above: Order Comment: Name Collection Type:: Clean-Voided Midstream Performed By: #### B MP, CBC #### [place] [address] [place] RBC LM.HPF (Urine sed) [#/Area] 0 /[HPF] Normal 0-4 [facility] Comment on above: Order Comment: Name Collection Type:: Clean-Voided Midstream Performed By: #### B MP, CBC #### [place] [address] [place] Specificy Lohn,Urine 1.018 Normal 1.001-1.03 0 [facility] Comment on above: Order Comment: Name Collection Type:: Clean-Voided Midstream Performed By: #### B MP, CBC #### [address] Squamous Epithelial Cell,Urine 0-1 Normal 0-2 [facility] Comment on above: Order Comment: Name Collection Type:: Clean-Voided Midstream Performed By: #### B MP, CBC #### [address] Urobilinogen,Urine Normal Normal Normal [facility] Comment on above: Order Comment: Name Collection Type:: Clean-Voided Midstream Performed By: #### B MP, CBC #### [address] WBC,Urine 5-9 High 0-4 [facility] Comment on above: Order Comment: Name Collection Type:: Clean-Voided Midstream Performed By: #### B MP, CBC #### [address] Yeast,Urine None Seen Normal None Seen [facility] Comment on above: Order Comment: Name Collection Type:: Clean-Voided Midstream Result Comment: PERF ORMED BY: [place] [address] PATHOLOGIST BLACK OXIDE OPERATOR JAYY SANTA M.D. Performed By: #### B MP, CBC #### [address] ECG 12 lead ECGon 01-09-2022 ECG 12 lead ECG [facility] [place] [address] Electrocardiograph Report Signed Patient: Irineo Wallis Jr MR#: [id number] : 1940 Acct:[id number] Age/Sex: 81 / M ADM Date: 01/09/22 Loc: Room: [address] [place] [address] Type: DIS IN Attending Dr: Raji Ennis [...] Victor Manuel Paiz MD 07/26 1548 Normal [facility] Eosinophils Auto (Bld) [#/Vo l]Ordered By: Victor Manuel Paiz on 01-09-2022 Eosinophils (Bld) [#/Vol] 0.0 10*3/uL 0.0-0.45 [facility] Eosinophils/100 WBC Auto (Bl d)Ordered By: Victor Manuel Paiz on 01-09-2022 Eosinophils/100 WBC (Bld) 0.1 % . [facility] Erythrocyte distribution wid th Auto (RBC) [Ratio]Ordered By: Victor Manuel Paiz on 01-09-2022 Erythrocyte distribution width (RBC) [Ratio] 15.9 % 12.0-14.8 [facility] Estimated glomerular filtrat ion rate (GFR) non- AmericanOrdered By: Victor Manuel Paiz on 01-09-2022 GFR/1.73 sq M.predicted among non-blacks MDRD (S/P/Bld) [Vol rate/Area] 41 mL/Min [facility] Hematocrit Auto (Bld) [Volum e fraction]Ordered By: Victor Manuel Paiz on 01-09-2022 Hematocrit (Bld) [Volume fraction] 36.5 % 38.8-50.0 [facility] Hemoglobin [Mass/volume] in BloodOrdered By: Victor Manuel Paiz on 01-09-2022 Hemoglobin (Bld) [Mass/Vol] 12.1 g/dL 13.0-17.0 [facility] Ketones Auto test strip (U) [Mass/Vol]Ordered By: Victor Manuel Paiz on 11-05-2022 Ketones (U) [Mass/Vol] Trace Negative [facility] - Chemistry and C hemistry - challengeOrdered By: Victor Manuel Paiz on 01-09-2022 Natriuretic peptide B (Bld) [Mass/Vol] 1810.0 pg/mL 5-100 [facility] Laboratory - CoagulationOrde red By: Victor Manuel Paiz on 01-09-2022 PT Coag (PPP) [Time] 28.4 s 9.0-12.9 [facility] - Hematology and Cell countsOrdered By: Victor Manuel Paiz on 01-09-2022 Nucleated RBC/100 WBC (Bld) [Ratio] 0.1 % 0-0.5 [facility] Laboratory - UrinalysisOrder ed By: Victor Manuel Paiz on 01-09-2022 Hyaline casts LM Ql (Urine sed) 0-8 [LPF] 0-8 [facility] Leukocytes [#/volume] in Blo od by Automated countOrdered By: Victor Manuel Paiz on 01-09-2022 WBC (Bld) [#/Vol] 6.0 10*3/uL 4.5-11.0 [facility] Lymphocytes Auto (Bld) [#/Vo l]Ordered By: Victor Manuel Paiz on 01-09-2022 Lymphocytes (Bld) [#/Vol] 0.8 10*3/uL 1.00-4.8 [facility] Lymphocytes/100 WBC Auto (Bl d)Ordered By: Victor Manuel Paiz on 01-09-2022 Lymphocytes/100 WBC (Bld) 13.5 % . [facility] MCH Auto (RBC) [Entitic mass ]Ordered By: Victor Manuel Paiz on 01-09-2022 MCH (RBC) [Entitic mass] 33.7 pg 27.5-35.2 [facility] MCHC Auto (RBC) [Mass/Vol]Or dered By: Victor Manuel Paiz on 01-09-2022 MCHC (RBC) [Mass/Vol] 33.2 g/dL 32.5-35.6 [facility] MCV Auto (RBC) [Entitic vol] Ordered By: Victor Manuel Paiz on 01-09-2022 MCV (RBC) [Entitic vol] 101.5 fL 83.5-101 [facility] Monocytes Auto (Bld) [#/Vol] Ordered By: Victor Manuel Paiz on 01-09-2022 Monocytes (Bld) [#/Vol] 0.9 10*3/uL 0.0-0.8 [facility] Monocytes/100 WBC Auto (Bld) Ordered By: Victor Manuel Paiz on 01-09-2022 Monocytes/100 WBC (Bld) 14.2 % . [facility] Neutrophils Auto (Bld) [#/Vo l]Ordered By: Victor Manuel Paiz on 01-09-2022 Neutrophils (Bld) [#/Vol] 4.3 10*3/uL 1.8-7.7 [facility] Neutrophils/100 WBC Auto (Bl d)Ordered By: Victor Manuel Paiz on 01-09-2022 Neutrophils/100 WBC (Bld) 71.2 % . [facility] Nitrite Test strip Ql (U)Ord ered By: Victor Manuel Paiz on 01-09-2022 Nitrite Ql (U) Negative Negative [facility] No Panel InformationOrdered By: Victor Manuel Paiz on 01-09-2022 SARS Antigen (LFIA) [facility] Estimated GFR () 50 mL/Min [facility] Comment on above: GFR estimated refere nce range: According to KDOQI guidelines, <60 ml/min/1.73m2 is sufficient to diagnose a patient with chronic kidney disease. Pharmacy Creatinine Clearance (Chem 39.44 [facility] SARS Antigen (LFIA) [facility] Partial Thromboplastin Timeo n 01-09-2022 aPTT Coag (Bld) [Time] 39.1 s High 25.1-36.5 [facility] Comment on above: Result Comment: PERF ORMED BY: [place] [address] PATHOLOGIST BLACK OXIDE OPERATOR JAYY SANTA M.D. Performed By: #### B MP, CBC #### [address] Platelet mean volume Auto (B ld) [Entitic vol]Ordered By: Victor Manuel Piaz on 01-09-2022 Platelet mean volume (Bld) [Entitic vol] 8.3 fL 6.6-10.1 [facility] Platelet poor plasma interna tional normalized ratio (INR) by coagulation assay (relatOrdered By: Victor Manuel Paiz on 01-09-2022 INR Coag (PPP) [Relative time] 2.5 {INR} [facility] Comment on above: INR Therapeutic Rang [...] 01-09-2022 Platelets (Bld) [#/Vol] 162 10*3/uL 150-450 [facility] Protein Auto test strip (U) [Mass/Vol]Ordered By: Victor Manuel Paiz on 01-09-2022 Protein (U) [Mass/Vol] Trace mg/dL Negative [facility] Prothrombin Time INRon 01-09 INR Coag (PPP) [Relative time] 2.5 {INR} Normal [facility] Comment on above: Result Comment: INR [...] Performed By: #### B MARY CBC #### [facility] [address] [place] [address] PT Coag (PPP) [Time] 28.4 s High 9.0-12.9 [facility] Comment on above: Performed By: #### B MARY CBC #### [facility] [address] [place] [address] RBC Auto (Bld) [#/Vol]Ordere d By: Victor Manuel Paiz on 01-09-2022 RBC (Bld) [#/Vol] 3.59 10*6/uL 3.90-5.60 [facility] Serum or plasma anion gap de terminationOrdered By: Victor Manuel Paiz on 01-09-2022 Anion gap [Moles/Vol] 14.9 mmol/L 6.0-15.0 [facility] Serum or plasma calcium alistair urement (mass/volume)Ordered By: Victor Manuel Paiz on 01-09-2022 Calcium [Mass/Vol] 9.2 mg/dL 8.2-10.2 [facility] Serum or plasma chloride jaymie surement (moles/volume)Ordered By: Victor Manuel Paiz on 01-09-2022 Chloride [Moles/Vol] 100 mmol/L 95-114 [facility] Serum or plasma creatine kin ase MB (CKMB)/total creatine kinase (CK) ratio by calculaOrdered By: Victor Manuel Paiz on 01-09-2022 CK.MB Calc [Catalytic fraction] 2.3 % 0.00-2.50 [facility] Serum or plasma creatine kin ase MB measurement (mass/volume)Ordered By: Victor Manuel Paiz on 01-09-2022 CK.MB [Mass/Vol] 5.4 ng/mL 0.6-6.3 [facility] Serum or plasma glucose alistair urement (mass/volume)Ordered By: Victor Manuel Paiz on 01-09-2022 Glucose [Mass/Vol] 99 mg/dL 70-100 [facility] Comment on above: ADA recommended refe rence rangeRandom Glucose Reference Range is dependent on time and content of last meal. Glucose of more than 200 mg/dL in a nonstressed, ambulatory subject supports the diagnosis of Diabetes Mellitus. Serum or plasma potassium me asurement (moles/volume)Ordered By: Victor Manuel Paiz on 01-09-2022 Potassium [Moles/Vol] 4.1 mmol/L 3.5-5.1 [facility] Serum or plasma sodium measu rement (moles/volume)Ordered By: Victor Manuel Paiz on 01-09-2022 Sodium [Moles/Vol] 136 mmol/L 136-146 [facility] Serum or plasma total carbon dioxide measurement (moles/volume)Ordered By: Victor Manuel Paiz on 01-09-2022 CO2 [Moles/Vol] 25.2 mmol/L 22.0-30.0 [facility] Serum or plasma urea nitroge n measurement (mass/volume)Ordered By: Victor Manuel Paiz on 01-09-2022 Urea nitrogen [Mass/Vol] 21 mg/dL 9- [facility] Mars Ag Negativeon 01-10-20 Mars Ag Negative Negative Normal Negative [facility] Comment on above: Result Comment: This is a duplicate [facility] SARS Antigen (MADHAVI) result to be used for statistical tracking purpose only. PERFORMED BY: [place] [address] PATHOLOGIST BLACK OXIDE OPERATOR JAYY SANTA M.D. Performed By: #### C OVID-19 MARS, SOFIANEG #### [facility] [address] [place] [address] Specific gravity Auto test s trip (U) [Rel density]Ordered By: Victor Manuel Paiz on 01-09-2022 Specific gravity (U) [Rel density] 1.018 1.001-1.03 0 [facility] Squamous epithelial cells de tection in urine sediment by light microscopyOrdered By: Victor Manuel Paiz on 01-09-2022 Epithelial cells.squamous LM Ql (Urine sed) 0-1 [HPF] 0-2 [facility] Troponin I High Sensitivityo n 01-09-2022 Troponin I High Sensitivity 101 pg/mL Off scale high 0-20 [facility] Comment on above: Result Comment: Resu lts called at 1208 on 01/09/22 PERFORMED BY: [place] [address] PATHOLOGIST BLACK OXIDE OPERATOR JAYY SANTA M.D. Performed By: #### B MP, CBC #### [facility] [address] [place] [address] Troponin I.cardiac [Mass/vol ume] in Serum or Plasma by High sensitivity methodOrdered By: Victor Manuel Paiz on 01-09-2022 Troponin I.cardiac High sensitivity method [Mass/Vol] 101 pg/mL 0-20 [facility] Comment on above: Results calledat 120 8 on 01/09/22 Urine Cultureon 01-09-2022 Bacteria identified Cx Nom (U) 30,000 colonies/ml mixed bacterial skin contaminants 2 Days PERFORMED BY: [address] [place] [address] PATHOLOGIST BLACK OXIDE OPERATOR JAYY SANTA M.D. [facility] Comment on above: Performed By: #### B MP, CBC #### [address] Urine bacteria detection by automated methodOrdered By: Victor Manuel Paiz on 01-09-2022 Bacteria Auto Ql (U) None seen None Seen [facility] Urine clarity by refractomet ry automatedOrdered By: Victor Manuel Paiz on 01-09-2022 Clarity Refractometry automated (U) Cloudy Clear [facility] Urine glucose measurement by automated test strip (mass/volume)Ordered By: Victor Manuel Paiz on 01-09-2022 Glucose Auto test strip (U) [Mass/Vol] Normal mg/dL Normal [facility] Urine hemoglobin detection b y automated test stripOrdered By: Victor Manuel Paiz on 01-09-2022 Hemoglobin Auto test strip Ql (U) Negative Negative [facility] Urine leukocyte esterase det ection by automated test stripOrdered By: Victor Manuel Paiz on 01-09-2022 Leukocyte esterase Auto test strip Ql (U) 2+ Negative [facility] Urobilinogen Auto test strip (U) [Mass/Vol]Ordered By: Victor Manuel Paiz on 01-09-2022 Urobilinogen (U) [Mass/Vol] Normal mg/dL Normal [facility] XR chest 1V portableon 01-09 XR chest 1V portable [facility] [place] [address] XRay Report Signed Patient: Irineo Wallis Jr MR#: [id number] : 1940 Acct:[id number] Age/Sex: 81 / M ADM Date: 01/09/22 Loc: ER Room: Type: [facility] ER Attending Dr: Copies to: Victor [...] Esa Cardoso M.D.01/09/2022 10:11 AM Dictation Location: [place] [address] Transcribed By: [facility] 01/09/22 1011 Dictated By: Esa Cardoso DO 01/09/22 1010 Signed By: 01/09/22 1011 Normal [facility] Yeast detection in urine sed iment by light microscopyOrdered By: Victor Manuel Paiz on 01-09-2022 Yeast LM Ql (Urine sed) None seen [HPF] None Seen [facility] pH Auto test strip (U)Ordere d By: Victor Manuel Paiz on 01-09-2022 pH (U) 5.5 [pH] 5.0-9.0 [facility] Body fluid albumin measureme nt (mass/volume)Ordered By: Feliciano Ga on 12-17-2021 Albumin (Body fld) [Mass/Vol] 3.5 g/dL 3.2-5.5 [facility] Comprehensive Metabolic Pane haley 12-17-2021 Albumin [Mass/Vol] 3.5 g/dL Normal 3.2-5.5 [facility] Comment on above: Order Comment: Reaso n for Exam Hypothyroidism, unspecified;Hypertension;Atrial fibrillation Reason for Exam Hypothyroidism, unspecified Performed By: #### C BC, BMP #### [facility] [address] Albumin/Globulin [Mass ratio] 1.6 {ratio} Normal [facility] Comment on above: Order Comment: Reaso n for Exam Hypothyroidism, unspecified;Hypertension;Atrial fibrillation Reason for Exam Hypothyroidism, unspecified Performed By: #### C BC, BMP #### [facility] [address] [place] [id number] [place] ALP [Catalytic activity/Vol] 92 U/L Normal 32-92 [facility] Comment on above: Order Comment: Reaso n for Exam Hypothyroidism, unspecified;Hypertension;Atrial fibrillation Reason for Exam Hypothyroidism, unspecified Performed By: #### C BC, BMP #### [facility] [address] [place] [phone] [facility] ALT [Catalytic activity/Vol] 19 U/L Normal 10-60 [facility] Comment on above: Order Comment: Reaso n for Exam Hypothyroidism, unspecified;Hypertension;Atrial fibrillation Reason for Exam Hypothyroidism, unspecified Performed By: #### C BC, BMP #### [facility] [address] [place] [phone] [facility] Anion gap [Moles/Vol] 15.3 mmol/L High 6.0-15.0 [facility] Comment on above: Order Comment: Reaso n for Exam Hypothyroidism, unspecified;Hypertension;Atrial fibrillation Reason for Exam Hypothyroidism, unspecified Performed By: #### C BC, BMP #### [facility] [address] [place] [phone] [facility] AST [Catalytic activity/Vol] 27 U/L Normal 10-42 [facility] Comment on above: Order Comment: Reaso n for Exam Hypothyroidism, unspecified;Hypertension;Atrial fibrillation Reason for Exam Hypothyroidism, unspecified Performed By: #### C BC, BMP #### [facility] [address] [place] [phone] [facility] Bilirubin [Mass/Vol] 1.2 mg/dL Normal 0.3-1.2 [facility] Comment on above: Order Comment: Reaso n for Exam Hypothyroidism, unspecified;Hypertension;Atrial fibrillation Reason for Exam Hypothyroidism, unspecified Performed By: #### C BC, BMP #### [facility] [address] [place] [address] [place] Calcium [Mass/Vol] 9.6 mg/dL Normal 8.2-10.2 [facility] Comment on above: Order Comment: Reaso n for Exam Hypothyroidism, unspecified;Hypertension;Atrial fibrillation Reason for Exam Hypothyroidism, unspecified Performed By: #### C BC, BMP #### [facility] [address] Chloride [Moles/Vol] 103 mmol/L Normal 95-114 [facility] Comment on above: Order Comment: Reaso n for Exam Hypothyroidism, unspecified;Hypertension;Atrial fibrillation Reason for Exam Hypothyroidism, unspecified Performed By: #### C BC, BMP #### [facility] [address] [place] [phone] [facility] CO2 [Moles/Vol] 25.2 mmol/L Normal 22.0-30.0 [facility] Comment on above: Order Comment: Reaso n for Exam Hypothyroidism, unspecified;Hypertension;Atrial fibrillation Reason for Exam Hypothyroidism, unspecified Performed By: #### C BC, BMP #### [facility] [address] Creatinine [Mass/Vol] 1.29 mg/dL High 0.64-1.27 [facility] Comment on above: Order Comment: Reaso n for Exam Hypothyroidism, unspecified;Hypertension;Atrial fibrillation Reason for Exam Hypothyroidism, unspecified Performed By: #### C BC, BMP #### [address] Estimated GFR ( Amarilis > 60 [facility] Comment on above: Order Comment: Reaso n for Exam Hypothyroidism, unspecified;Hypertension;Atrial fibrillation Reason for Exam Hypothyroidism, unspecified Result Comment: GFR estimated reference range: According to KDOQI guidelines, <60 ml/min/1.73m2 is sufficient to diagnose a patient with chronic kidney disease. Performed By: #### C BC, BMP #### [facility] [address] [place] [address] Estimated GFR (Non- Am 54 [facility] Comment on above: Order Comment: Reaso n for Exam Hypothyroidism, unspecified;Hypertension;Atrial fibrillation Reason for Exam Hypothyroidism, unspecified Performed By: #### C BC, BMP #### [facility] [address] [place] [phone] [facility] Globulin (S) [Mass/Vol] 2.2 g/dL [facility] Comment on above: Order Comment: Reaso n for Exam Hypothyroidism, unspecified;Hypertension;Atrial fibrillation Reason for Exam Hypothyroidism, unspecified Performed By: #### C BC, BMP #### [address] Glucose [Mass/Vol] 84 mg/dL Normal 70-100 [facility] Comment on above: Order Comment: Reaso n for Exam Hypothyroidism, unspecified;Hypertension;Atrial fibrillation Reason for Exam Hypothyroidism, unspecified Result Comment: [facility] Glucose Reference Range is dependent on time and content of last meal. Glucose of more than 200 mg/dL in a nonstressed, ambulatory subject supports the diagnosis of Diabetes Mellitus. ADA recommended reference range Performed By: #### C BC, BMP #### [facility] [address] [place] [phone] [facility] Potassium [Moles/Vol] 4.5 mmol/L Normal 3.5-5.1 [facility] Comment on above: Order Comment: Reaso n for Exam Hypothyroidism, unspecified;Hypertension;Atrial fibrillation Reason for Exam Hypothyroidism, unspecified Performed By: #### C BC, BMP #### [facility] [address] [place] [address] [place] Protein [Mass/Vol] 5.7 g/dL Low 6.1-7.9 [facility] Comment on above: Order Comment: Reaso n for Exam Hypothyroidism, unspecified;Hypertension;Atrial fibrillation Reason for Exam Hypothyroidism, unspecified Performed By: #### C BC, BMP #### [facility] [address] [place] [phone] [place] Sodium [Moles/Vol] 139 mmol/L Normal 136-146 [facility] Comment on above: Order Comment: Reaso n for Exam Hypothyroidism, unspecified;Hypertension;Atrial fibrillation Reason for Exam Hypothyroidism, unspecified Performed By: #### C BC, BMP #### [facility] [address] [place] [phone] [place] Urea nitrogen [Mass/Vol] 16 mg/dL Normal 9-23 [facility] Comment on above: Order Comment: Reaso n for Exam Hypothyroidism, unspecified;Hypertension;Atrial fibrillation Reason for Exam Hypothyroidism, unspecified Performed By: #### C BC, BMP #### [facility] [address] [place] [phone] [place] Creatinine and Glomerular fi ltration rate.predicted panel (S/P/Bld)Ordered By: Feliciano Ga on 12-17-2021 Creatinine [Mass/Vol] 1.29 mg/dL 0.64-1.27 [facility] Estimated glomerular filtrat ion rate (GFR) non- AmericanOrdered By: Feliciano Ga on 12-17-2021 GFR/1.73 sq M.predicted among non-blacks MDRD (S/P/Bld) [Vol rate/Area] 54 mL/Min [facility] Free T4 (Free Thyroxine)on 1 Free T4 [Mass/Vol] 1.09 ng/dL Normal 0.61-1.12 [facility] Comment on above: Order Comment: Reaso n for Exam Hypothyroidism, unspecified;Hypertension;Atrial fibrillation Reason for Exam Hypothyroidism, unspecified Performed By: #### C BC, BMP #### [facility] [address] [place] [address] Globulin Calc (S) [Mass/Vol] Ordered By: Feliciano Ga on 12-17-2021 Globulin (S) [Mass/Vol] 2.2 g/dL [facility] No Panel InformationOrdered By: Feliciano Ga on 12-17-2021 Estimated GFR () > 60 mL/Min [facility] Comment on above: GFR estimated refere nce range: According to KDOQI guidelines, <60 ml/min/1.73m2 is sufficient to diagnose a patient with chronic kidney disease. Pharmacy Creatinine Clearance (Chem N/A [facility] Protein [Mass/volume] in Ser um or PlasmaOrdered By: Feliciano Ga on 12-17-2021 Protein [Mass/Vol] 5.7 g/dL 6.1-7.9 [facility] Serum or plasma alanine alvarez otransferase measurement without P-5'-P (enzymatic activiOrdered By: Feliciano Ga on 12-17-2021 ALT No additional P-5'-P [Catalytic activity/Vol] 19 U/L 10-60 [facility] Serum or plasma albumin/glob ulin mass ratioOrdered By: Feliciano Ga on 12-17-2021 Albumin/Globulin [Mass ratio] 1.6 {ratio} [facility] Serum or plasma alkaline harish sphatase measurement (enzymatic activity/volume)Ordered By: Feliciano Ga on 12-17-2021 ALP [Catalytic activity/Vol] 92 U/L 32-92 [facility] Serum or plasma anion gap de terminationOrdered By: Feliciano Ga on 12-17-2021 Anion gap [Moles/Vol] 15.3 mmol/L 6.0-15.0 [facility] Serum or plasma aspartate am inotransferase measurement (enzymatic activity/volume)Ordered By: Feliciano Ga on 12-17-2021 AST [Catalytic activity/Vol] 27 U/L 10-42 [facility] Serum or plasma calcium alistair urement (mass/volume)Ordered By: Feliciano Ga on 12-17-2021 Calcium [Mass/Vol] 9.6 mg/dL 8.2-10.2 [facility] Serum or plasma chloride jaymie surement (moles/volume)Ordered By: Feliciano Ga on 12-17-2021 Chloride [Moles/Vol] 103 mmol/L 95-114 [facility] Serum or plasma glucose alistair urement (mass/volume)Ordered By: Feliciano Ga on 12-17-2021 Glucose [Mass/Vol] 84 mg/dL 70-100 [facility] Comment on above: ADA recommended refe rence rangeRandom Glucose Reference Range is dependent on time and content of last meal. Glucose of more than 200 mg/dL in a nonstressed, ambulatory subject supports the diagnosis of Diabetes Mellitus. Serum or plasma potassium me asurement (moles/volume)Ordered By: Feliciano Ga on 12-17-2021 Potassium [Moles/Vol] 4.5 mmol/L 3.5-5.1 [facility] Serum or plasma sodium measu rement (moles/volume)Ordered By: Feliciano Ga on 12-17-2021 Sodium [Moles/Vol] 139 mmol/L 136-146 [facility] Serum or plasma total biliru bin measurement (mass/volume)Ordered By: Feliciano Ga on 12-17-2021 Bilirubin [Mass/Vol] 1.2 mg/dL 0.3-1.2 [facility] Serum or plasma total carbon dioxide measurement (moles/volume)Ordered By: Feliciano Ga on 12-17-2021 CO2 [Moles/Vol] 25.2 mmol/L 22.0-30.0 [facility] Serum or plasma urea nitroge n measurement (mass/volume)Ordered By: Feliciano Ga on 12-17-2021 Urea nitrogen [Mass/Vol] 16 mg/dL 9- [facility] TSH DL <= 0.005 mIU/L QnOrde red By: Feliciano Ga on 12-17-2021 TSH Qn 1.83 m[IU]/L 0.45-5.33 [facility] Thyroid Stimulating Hormoneo n 12-17-2021 TSH Qn 1.83 m[IU]/L Normal 0.45-5.33 [facility] Comment on above: Order Comment: Reaso n for Exam Hypothyroidism, unspecified;Hypertension;Atrial fibrillation Reason for Exam Hypothyroidism, unspecified Result Comment: PERF ORMED BY: [place] [address] PATHOLOGIST BLACK OXIDE OPERATOR JAYY SANTA M.D. Performed By: #### C BC, BMP #### [address] Thyroxine (T4) free [Mass/vo lume] in Serum or PlasmaOrdered By: Feliciano Ga on 12-17-2021 Free T4 [Mass/Vol] 1.09 ng/dL 0.61-1.12 [facility] Office Visit (Cardiology)on 08-04-2021 Follow-up [...] All medical record entries made by the Kimaniibe were at my direction and personally dictated [...] of Cardiac catheterization History of Complete colonoscopy [facility] History of Hip replacement History of [...] for com (more content not included)... Normal [employer] Tobacco Screening.on 022 Adult depression screening assessment No [facility] [employer] lauro 250 DO Work Phone: Fall risk assessment b) One or more fall s in the last year [facility] lauro 250 DO Work Phone: Tobacco use status CP b) No [facility] lauro 250 DO Work Phone: Tobacco Screening.on 021 Fall risk assessment b) One or more fall s in the last year [facility] lauro 250 DO Work Phone: Tobacco use status CP b) No [facility] lauro 250 DO Work Phone: Coding Summary.on 12-16-2016 Coding Summary. CODING DATE: 017 FINAL [facility] STATUS: Home (Routine DC) PAYOR: [...] neoplasm of other organs and systems Z79.01 technician terminal and repeater (current) use of anticoagulants Z96.649 Presence of [...] Bynum Date Saved: 12/16/2016 09:56 am Normal [facility] Inpatient Patient Summaryon 12-15-2016 Inpatient Patient Summary [address] [address] Clinical SummaryPerson Information Name: IRINEO WALLIS Age: 76 Years : 1940 12:00 AM Sex: Male PCP: NONE, XXXX Marital Status: Race:White Ethnicity:Non- or Language:Azeri Visit Id: Visit Reason:BPH WITH OBSTRUCTION Speciality: Acuity: Enc Type: Outpatient Med Service: Surgery Arrival:12/15/2016 8:36 AM Discharge: Dispo Type: Address:[address] [address] [place] [id number] Provider Notes: Diagnosis: Problems No Problems Documented [...] Information: EU - Urolift Discharge Instructions (CUSTOM) [facility] Main OR Intraoperative Recor don 12-15-2016 Main OR Intraoperative Record IntraOp Document Type FTURO Summary Primary Physician: Dontrell Good MD Finalized Date/Time: 12/15/16 09:47:51 Pt. Name: IRINEO WALLIS/Sex: 1940 Male Med Rec #: [id number] Physician: Dontrell Good MD Financial #: [id number] Pt. Type: O Room/Bed: / Admit/Disch: 12/15/16 08:36:09 - Institution: Case Times FTURO Entry 1 Patient Times In Room 12/15/16 09:25:00 Out Room 12/15/16 09:51:00 Procedure Times Start 12/15/16 09:34:00 Stop 12/15/16 09:46:00 Anesthesia Times Last Modified By: LEONARD Jewell RN, Ruthann 12/15/16 09:46:12 Case Attendance FTURO Entry 1 Entry 2 Entry 3 Case Attendee Fanta FOLRES, BARRYOR, Ailin BENJAMIN, Sylwia Good MD, Dontrell Schaefer Role Performed Label Operator - Primary Scrub - Primary Surgeon [...] Met? Yes Last Modified By: Fanta FLORES, LEONARD, Olive 12/15/16 07:45:32 Post-Care Text: The patient [...] RN, Verified (If Medication Participants Ailin Schaefer CST, Ana Applicable) Florentino Byrd MD, Dontrell Roe [...] Identification Description urolift urolift urolift Serial Number [id number] Lot Number [id number] Intellectual Property Lawyer neotract neotract neotract Catalog ?# Size Expiration [...] LEONARD Jewell RN, Ruthann 12/15/16 09:47 Normal [facility] Main OR Preoperative Recordo n 12-15-2016 Main OR Preoperative Record Holding Area Document Type FTURO Summary Primary Physician: Dontrell Good MD Finalized Date/Time: 12/15/16 09:34:53 Pt. Name: IRINEO WALLIS /Sex: 1940 Male Med Rec #: [id number] Physician: Dontrell Good MD Financial #: [id number] Pt. Type: O Room/Bed: / Admit/Disch: 12/15/16 [...] Complaints of Pain: No Skin Integrity Intact, [place], Warm, & Dry Vitals - EU Blood Pressure 107/68 Pulse 78 bpm Respirations 16 br/min SPO2 Additional None RN Reviewed Yes Specimens Collected Last Modified By: LEONARD Jewell RN, Ruthann 12/15/16 09:30:48 Finalized By: LEONARD Jewell RN, Ruthann Document Signatures Signed By: LEONARD Jewell RN, Ruthann 12/15/16 09:30 Ingris Goel 12/15/16 09:09 LEONARD Jewell RN, Ruthann 12/15/16 09:34 Normal [facility] Operative Reporton 7 Operative Report Patient: [...] procedure (10 mg diazepam, 5/325 mg of [place]), Local Anesthesia (60cc 2% Xylocaine liquid inserted [...] procedure well and was subsequently discharged home. [facility] Comment on above: Result Comment: Elec tronically Signed By: Florentino TIDWELL, Dontrell Steward.elizabeth\Date and Time Signed: 12/15/16 09:49 EDT Vital Signs Date Time Vital Sign Value Performing Clinician Facility 03-18-2023 09:15-0500 Body height 167.64 cm Feliciano Ga Other [facility] Other 03-18-2023 09:15-0500 Body mass index (BMI) [Ratio] 29.7 kg/m2 Feliciano Ga Other [facility] Other 03-18-2023 09:15-0500 Body weight 83.46 kg Feliciano Ga Other [facility] Other 03-18-2023 09:15-0500 Diastolic blood pressure 80 mm[Hg] Feliciano Ga Other [facility] Other 03-18-2023 09:15-0500 Respiratory rate 16 /min Feliciano Ga Other [facility] Other 03-18-2023 09:15-0500 SaO2% (BldA) [Mass fraction] 97 % Feliciano Ga Other [facility] Other 03-18-2023 09:15-0500 Systolic blood pressure 124 mm[Hg] Feliciano Ga Other [facility] Other 09-15-2022 09:15-0400 Body height 167.64 cm Feliciano Ga Other [facility] Other 09-15-2022 09:15-0400 Body mass index (BMI) [Ratio] 28.11 kg/m2 Feliciano Ga Other [facility] Other 09-15-2022 09:15-0400 Body weight 79.02 kg Feliciano Ga Other [facility] Other 09-15-2022 09:15-0400 Diastolic blood pressure 70 mm[Hg] Feliciano Ga Other [facility] Other 09-15-2022 09:15-0400 Respiratory rate 16 /min Feliciano Ga Other [facility] Other 09-15-2022 09:15-0400 SaO2% (BldA) [Mass fraction] 96 % Feliciano Ga Other [facility] Other 09-15-2022 09:15-0400 Systolic blood pressure 112 mm[Hg] Feliciano Ga Other [facility] Other 07-07-2022 09:36-0400 Body height 167.64 cm Feliciano Ga Work Phone: [employer] 250 DO Work Phone: 07-07-2022 09:36-0400 Body mass index (BMI) [Ratio] 28.89 kg/m2 Feliciano Ga Work Phone: [employer] 250 DO Work Phone: 07-07-2022 09:36-0400 Body surface area Derived from formula 1.91 m2 Feliciano Ga Work Phone: [facility] DO Work Phone: 07-07-2022 09:36-0400 Body weight 81.19 kg Feliciano Ga Work Phone: [facility] 250 DO Work Phone: 07-07-2022 09:36-0400 Diastolic blood pressure 84 mm[Hg] Feliciano Ga Work Phone: [facility] 250 DO Work Phone: 07-07-2022 09:36-0400 Heart rate 76 /min Feliciano Ga Work Phone: [facility] 250 DO Work Phone: 07-07-2022 09:36-0400 Systolic blood pressure 128 mm[Hg] Feliciano Ga Work Phone: [facility] 250 DO Work Phone: 06-07-2022 10:15-0400 Body height 167.64 cm Feliciano Ga Other [employer] [facility] [employer] Other 06-07-2022 10:15-0400 Body mass index (BMI) [Ratio] 29.7 kg/m2 Feliciano Ga Other [facility] Other 06-07-2022 10:15-0400 Body weight 83.46 kg Feliciano Ga Other [facility] [employer] Other 06-07-2022 10:15-0400 Diastolic blood pressure 60 mm[Hg] Feliciano Ga Other [facility] Other 06-07-2022 10:15-0400 Respiratory rate 16 /min Feliciano Ga Other [facility] Other 06-07-2022 10:15-0400 SaO2% (BldA) [Mass fraction] 96 % Feliciano Ga Other [facility] Other 06-07-2022 10:15-0400 Systolic blood pressure 120 mm[Hg] Feliciano Harmeet Other [facility] Other 03-10-2022 14:47-0500 Body height 167.64 cm Feliciano Ga Work Phone: [facility] 250 DO Work Phone: 03-10-2022 14:47-0500 Body mass index (BMI) [Ratio] 30.18 kg/m2 Feliciano Ga Work Phone: [facility] 250 DO Work Phone: 03-10-2022 14:47-0500 Body surface area Derived from formula 1.94 m2 Feliciano Ga Work Phone: [facility] 250 DO Work Phone: 03-10-2022 14:47-0500 Body weight 84.82 kg Feliciano Ga Work Phone: [facility] 250 DO Work Phone: 03-10-2022 14:47-0500 Diastolic blood pressure 90 mm[Hg] Feliciano Louis Ga Work Phone: [facility] 250 DO Work Phone: 03-10-2022 14:47-0500 Heart rate 72 /min Feliciano Myers Harmeet Work Phone: [facility] 250 DO Work Phone: 03-10-2022 14:47-0500 Systolic blood pressure 128 mm[Hg] Feliciano Myers Harmeet Work Phone: [facility] 250 DO Work Phone: 03-09-2022 13:30-0500 Body height 142.24 cm Feliciano Ga Other [facility] [employer] Other 03-09-2022 13:30-0500 Body mass index (BMI) [Ratio] 42.82 kg/m2 Feliciano Ga Other [facility] [employer] Other 03-09-2022 13:30-0500 Body weight 86.64 kg Feliciano Ga Other [facility] [employer] Other 03-09-2022 13:30-0500 Diastolic blood pressure 78 mm[Hg] Feliciano Ga Other [facility] [employer] Other 03-09-2022 13:30-0500 Respiratory rate 16 /min Feliciano Ga Other [facility] [employer] Other 03-09-2022 13:30-0500 SaO2% (BldA) [Mass fraction] 96 % Feliciano Ga Other [facility] [employer] Other 03-09-2022 13:30-0500 Systolic blood pressure 136 mm[Hg] Feliciano Ga Other [facility] [employer] Other 02-09-2022 15:45-0500 Body height 142.24 cm Feliciano Ga Other [facility] [employer] Other 02-09-2022 15:45-0500 Body mass index (BMI) [Ratio] 44.92 kg/m2 Feliciano Ga Other [facility] [employer] Other 02-09-2022 15:45-0500 Body weight 90.9 kg Feliciano Kuns Other [employer] Other 02-09-2022 15:45-0500 Diastolic blood pressure 83 mm[Hg] Feliciano Tjs Other [facility] Other 02-09-2022 15:45-0500 Respiratory rate 16 /min Felicianoamadou Spencers Other [facility] Other 02-09-2022 15:45-0500 SaO2% (BldA) [Mass fraction] 98 % Feliciano Spencers Other [facility] Other 02-09-2022 15:45-0500 Systolic blood pressure 124 mm[Hg] Feliciano Spencers Other [employer] Other 01-16-2022 11:37-0500 Body temperature 98.1 [degF] DO Feliciano Tjs Work Phone: [facility] 01-16-2022 11:37-0500 Diastolic blood pressure 71 mm[Hg] DO Feliciano Kuns Work Phone: [facility] 01-16-2022 11:37-0500 Heart rate 79 /min DO Feliciano Kuns Work Phone: [facility] 01-16-2022 11:37-0500 Respiratory rate 16 /min DO Feliciano Kuns Work Phone: [facility] 01-16-2022 11:37-0500 SaO2% (BldA) [Mass fraction] 97 % DO Feliciano Kuns Work Phone: [facility] 01-16-2022 11:37-0500 Systolic blood pressure 124 mm[Hg] DO Feliciano Kuns Work Phone: [facility] 01-16-2022 04:10-0500 Body weight 90.5 kg DO Feliciano Kuns Work Phone: [facility] 01-13-2022 16:00-0500 Inhaled oxygen flow rate 1 L/min DO Felicianoamadou Spencers Work Phone: [facility] 01-11-2022 13:55-0500 Body height 167.64 cm DO Felicianoamadou Spencers Work Phone: [facility] 01-09-2022 14:00-0400 Diastolic blood pressure 74 mm[Hg] DO Feliciano Tjs Work Phone: [facility] 01-09-2022 14:00-0400 Heart rate 67 /min DO Feliciano Tjs Work Phone: [facility] 01-09-2022 14:00-0400 Inhaled oxygen flow rate 3 L/min DO Feliciano Spencers Work Phone: [facility] 01-09-2022 14:00-0400 Respiratory rate 19 /min DO Feliciano Spencers Work Phone: [facility] 01-09-2022 14:00-0400 SaO2% (BldA) [Mass fraction] 99 % DO Feliciano Spencers Work Phone: [facility] 01-09-2022 14:00-0400 Systolic blood pressure 145 mm[Hg] DO Feliciano Spencers Work Phone: [facility] 01-09-2022 09:41-0400 Body temperature 97.2 [degF] DO Felicianoamadou Spencers Work Phone: [facility] 01-09-2022 09:38-0400 Body height 167.64 cm DO Felicianoamadou Spencers Work Phone: [facility] 01-09-2022 09:38-0400 Body weight 96 kg DO Feliciano Tjs Work Phone: [facility] 01-07-2022 13:45-0400 Body height 142.24 cm Feliciano Kuns Other [facility] Other 01-07-2022 13:45-0400 Body mass index (BMI) [Ratio] 48.42 kg/m2 Feliciano Ga Other [facility] Other 01-07-2022 13:45-0400 Body weight 97.98 kg Feliciano Ga Other [facility] Other 01-07-2022 13:45-0400 Diastolic blood pressure 62 mm[Hg] Feliciano Ga Other [facility] Other 01-07-2022 13:45-0400 Respiratory rate 16 /min Feliciano Ga Other [facility] Other 01-07-2022 13:45-0400 SaO2% (BldA) [Mass fraction] 94 % Feliciano Ga Other [facility] Other 01-07-2022 13:45-0400 Systolic blood pressure 122 mm[Hg] Feliciano Ga Other [facility] Other 10-12-2021 09:00-0400 Body height Feliciano Ga Other [facility] Other 10-12-2021 09:00-0400 Body mass index (BMI) [Ratio] 32.83 kg/m2 Feliciano Ga Other [facility] Other 10-12-2021 09:00-0400 Body weight 92.26 kg Feliciano Ga Other [facility] Other 10-12-2021 09:00-0400 Diastolic blood pressure 54 mm[Hg] Feliciano Kuns Other [facility] Other 10-12-2021 09:00-0400 Respiratory rate 16 /min Feliciano Spencers Other [facility] Other 10-12-2021 09:00-0400 SaO2% (BldA) [Mass fraction] 95 % Feliciano Ga Other [facility] Other 10-12-2021 09:00-0400 Systolic blood pressure 110 mm[Hg] Feliciano Spencers Other [facility] Other 09-11-2021 10:00-0400 Body height Feliciano Ga Other [facility] Other 09-11-2021 10:00-0400 Diastolic blood pressure 52 mm[Hg] Feliciano Spnecers Other [facility] Other 09-11-2021 10:00-0400 Respiratory rate 16 /min Feliciano Ga Other [facility] Other 09-11-2021 10:00-0400 SaO2% (BldA) [Mass fraction] 96 % Feliciano Ga Other [facility] Other 09-11-2021 10:00-0400 Systolic blood pressure 102 mm[Hg] Feliciano Spencers Other [facility] Other 08-31-2021 12:00-0400 Body height Feliciano Spencers Other [facility] Other 08-31-2021 12:00-0400 Diastolic blood pressure 70 mm[Hg] Feliciano Tjs Other [facility] [employer] Other 08-31-2021 12:00-0400 Systolic blood pressure 130 mm[Hg] Feliciano Ga Other [facility] [employer] Other 08-04-2021 14:17-0400 Body height 167.64 cm Feliciano Ga Work Phone: [facility] 250 DO Work Phone: 08-04-2021 14:17-0400 Body mass index (BMI) [Ratio] 33.09 kg/m2 Feliciano Ga Work Phone: [facility] 250 DO Work Phone: 08-04-2021 14:17-0400 Body surface area Derived from formula 2.02 m2 Feliciano Ga Work Phone: [facility] 250 DO Work Phone: 08-04-2021 14:17-0400 Body weight 92.99 kg Feliciano Ga Work Phone: [facility] 250 DO Work Phone: 08-04-2021 14:17-0400 Diastolic blood pressure 56 mm[Hg] Feliciano Ga Work Phone: [facility] 250 DO Work Phone: 08-04-2021 14:17-0400 Heart rate 54 /min Feliciano Ga Work Phone: [facility] 250 DO Work Phone: 08-04-2021 14:17-0400 Systolic blood pressure 108 mm[Hg] Feliciano Ga Work Phone: [facility] 250 DO Work Phone: 01-19-2021 09:30-0500 Body height Feliciano Ga Other [employer] Other 01-19-2021 09:30-0500 Body mass index (BMI) [Ratio] 33.67 kg/m2 Feliciano Ga Other [facility] Other 01-19-2021 09:30-0500 Body weight 94.62 kg Feliciano Ga Other [facility] Other 01-19-2021 09:30-0500 Diastolic blood pressure 62 mm[Hg] Feliciano Ga Other [facility] Other 01-19-2021 09:30-0500 Respiratory rate 16 /min Feliciano Ga Other [facility] Other 01-19-2021 09:30-0500 SaO2% (BldA) [Mass fraction] 96 % Feliciano Ga Other [facility] Other 01-19-2021 09:30-0500 Systolic blood pressure 116 mm[Hg] Feliciano Ga Other [facility] Other 01-05-2021 15:22-0400 Body height 167.64 cm Feliciano Ga Work Phone: [employer] 250 DO Work Phone: 01-05-2021 15:22-0400 Body mass index (BMI) [Ratio] 33.25 kg/m2 Feliciano Ga Work Phone: [employer] 250 DO Work Phone: 01-05-2021 15:22-0400 Body surface area Derived from formula 2.03 m2 Feliciano Ga Work Phone: [facility] 250 DO Work Phone: 01-05-2021 15:22-0400 Body weight 93.44 kg Feliciano Louis Harmeet Work Phone: [facility] 250 DO Work Phone: 01-05-2021 15:22-0400 Diastolic blood pressure 84 mm[Hg] Feliciano Ga Work Phone: [facility] 250 DO Work Phone: 01-05-2021 15:22-0400 Heart rate 56 /min Feliciano Ga Work Phone: [facility] 250 DO Work Phone: 01-05-2021 15:22-0400 Systolic blood pressure 126 mm[Hg] Feliciano Ga Work Phone: [facility] 250 DO Work Phone: Encounters Encounter Date Encounter Type Care Provider Facility Start: 03-18-2023 End: 03-18-2023 ambulatory Feliciano Ga Other [facility] Other Start: 03-18-2023 Office outpatient visit 25 minutes Feliciano Ga [facility] Start: 03-14-2023 End: 03-15-2023 ambulatory Diana Price MD Facility: [facility] Start: 01-10-2023 End: 01-11-2023 ambulatory Diana Price MD Facility:[facility] Start: 12-31-2022 End: 12-31-2022 ambulatory Feliciano Ga Other [facility] Other Start: 12-31-2022 Telephone encounter Feliciano EUCEDA [facility] Start: 12-06-2022 End: 12-06-2022 ambulatory Feliciano Ga Other [facility] Other Start: 12-06-2022 Telephone encounter Feliciano Ga [facility] Start: 11-30-2022 End: 11-30-2022 ambulatory Feliciano Spencercatie Other [facility] Other Start: 11-30-2022 Telephone encounter Feliciano Ga [facility] Start: 10-14-2022 ambulatory DOMINICEARNEST WALLACE . Facili ty:[facility] Start: 09-15-2022 End: 09-15-2022 ambulatory Feliciano Tjcatie Other [facility] Other Start: 09-15-2022 Office outpatient visit 15 minutes Feliciano Ga [facility] Start: 09-10-2022 Chart Update Feliciano Ga Work Phone: [facility] 250 DO Work Phone: Start: 09-08-2022 Telephone encounter Feliciano Ga [facility] Start: 09-08-2022 End: 09-08-2022 ambulatory Feliciano Ga Facility:[facility] Start: 09-08-2022 End: 09-08-2022 ambulatory DO Feliciano Ga Work Phone: [facility] Work Phone: Start: 09-08-2022 End: 09-08-2022 Patient encounter procedure DO Feliciano Ga Work Phone: [facility] [place] Work Phone: Start: 08-30-2022 Rx Renewal Feliciano Ga Work Phone: [facility] 250 DO Work Phone: Start: 07-08-2022 End: 07-09-2022 ambulatory NARENDRANATH LAKHERMESMIPATHY . Facility: Start: 07-07-2022 Office outpatient visit 15 minutes Feliciano Ga Work Phone: [facility] 250 DO Work Phone: Start: 07-07-[address] Feliciano Ga Facility: Start: 06-07-2022 End: 06-07-2022 ambulatory Feliciano Ga Other [employer] Other Start: 06-07-2022 Office outpatient visit 25 minutes Feliciano Ga [facility] Start: 06-01-2022 End: 06-01-2022 ambulatory Feliciano Ga Other [employer] Other Start: 06-01-2022 Telephone encounter Feliciano Ga [facility] Start: 05-13-2022 End: 05-14-2022 ambulatory EDILMA MANDEL Facility:[facility] Start: 05-11-2022 End: 05-11-2022 ambulatory Feliciano Ga Other [facility] Other Start: 05-11-2022 Telephone encounter Feliciano Ga [facility] Start: 04-15-2022 End: 04-16-[address] TROY BRAMBILA . Facility:[facility] Start: 04-12-2022 End: 04-12-2022 ambulatory Feliciano Ga Facility:[facility] Start: 04-12-2022 End: 04-12-2022 ambulatory DO Feliciano Ga Work Phone: [facility] Work Phone: Start: 04-12-2022 End: 04-12-2022 Discharged Recurring DO Feliciano Ga Work Phone: [facility] [place] Work Phone: Start: 03-30-2022 End: 03-30-[address] TROY BRAMBILA . Facility:[facility] Start: 03-29-2022 Rx Renewal Feliciano Ga Work Phone: [facility] 250 DO Work Phone: Start: 03-19-2022 ambulatory Marv Drew Facility : Start: 03-15-2022 ambulatory Ms. Enedelia Gusmanshelia Gomez Facility: Start: 03-15-2022 Patient encounter procedure Felicianoamadou Ga Work Phone: [facility] 250 DO Work Phone: Start: 03-15-2022 Chart Update Feliciano Ga Work Phone: [facility] 250 DO Work Phone: Start: 03-11-2022 End: 03-11-2022 ambulatory Feliciano Ga Facility:[facility] Start: 03-11-2022 Registered Recurring DO Feliciano Ga Work Phone: [facility] [place] Work Phone: Start: 03-11-2022 End: 03-11-2022 ambulatory DO Feliciano Ga Work Phone: [facility] Work Phone: Start: 03-11-2022 End: 03-11-2022 Patient encounter procedure DO Feliciano Ga Work Phone: [facility] [place] Work Phone: Start: 03-10-2022 FUV, Provider: Enedelia Mix, Status: Pen, Time: 2:30 PM Feliciano Myers Harmeet Work Phone: [facility] 250 DO Work Phone: Start: 03-10-2022 Office outpatient visit 25 minutes Feliciano Myers Harmeet Work Phone: [facility] 600 DO Work Phone: Start: 03-10-2022 Patient encounter procedure Feliciano Louis Tjs Work Phone: [facility] 250 DO Work Phone: Start: 03-10-2022 ambulatory Ms. Enedelia Gomez Facility: Start: 03-09-2022 End: 03-09-2022 ambulatory Feliciano Ga Other [facility] Other Start: 03-09-2022 Office outpatient visit 15 minutes Feliciano Ga [facility] Start: 03-04-2022 End: 03-04-2022 ambulatory Feliciano Ga Other [employer] Other Start: 03-04-2022 Telephone encounter Feliciano Ga [facility] Start: 03-03-2022 Rx Renewal Feliciano Ga Work Phone: [facility] 250 DO Work Phone: Start: 03-03-2022 End: 03-03-2022 ambulatory Feliciano Ga Other [facility] Other Start: 03-03-2022 Telephone encounter Feliciano Ga [facility] Start: 02-18-2022 End: 02-19-[address] TROY BRAMBILA . Facility: Start: 02-15-2022 Rx Renewal Feliciano Ga Work Phone: [facility] 250 DO Work Phone: Start: 02-09-2022 End: 02-09-2022 ambulatory Feliciano Ga Other [employer] Other Start: 02-09-2022 Office outpatient visit 25 minutes Feliciano Ga [facility] Start: 01-13-2022 End: 01-13-2022 ambulatory Feliciano Ga Other [employer] Other Start: 01-13-2022 Telephone encounter Feliciano Ga [facility] Start: 01-12-[address] Feliciano Ga Facility:[id number] Start: 01-11-2022 ambulatory Marv Drew Facility :[id number] Start: 01-10-[address] Feliciano Ga Facility:[id number] Start: 01-09-2022 End: 01-16-2022 Evaluation and management of inpatient Feliciano Ga Facility:[facility] Start: 01-09-2022 End: 01-16-2022 Evaluation and management of inpatient DO Feliciano Ga Work Phone: [facility] [place] [facility] Start: 01-07-2022 End: 01-07-2022 ambulatory Feliciano Ga Other [employer] Other Start: 01-07-2022 Office outpatient visit 25 minutes Feliciano Ga [facility] Start: 12-25-2021 End: 12-25-2021 ambulatory Feliciano Ga Other [employer] Other Start: 12-25-2021 Telephone encounter Feliciano Ga [facility] Start: 12-17-2021 End: 12-18-[address] TROY BRAMBILA . Facility:[facility] Start: 12-17-2021 End: 12-17-2021 ambulatory DO Feliciano Ga Work Phone: [facility] Work Phone: Start: 12-17-2021 End: 12-17-2021 Patient encounter procedure DO Feliciano Ga Work Phone: [facility] [place] Start: 12-01-2021 End: 12-01-[address] TROY BRAMBILA . Facility:[facility] Start: 11-12-2021 End: 11-13-[address] NELSY GA Facility:[facility] Start: 10-12-2021 End: 10-12-2021 ambulatory Feliciano Ga Other [employer] Other Start: 10-12-2021 Office outpatient visit 15 minutes Feliciano Ga [facility] Start: 09-28-2021 Telephone encounter Feliciano Ga [facility] Start: 09-28-2021 End: 09-28-2021 ambulatory Monserrat Rodarte [facility] [employer] Other Start: 09-28-2021 End: 09-28-2021 Discharged Recurring DO Feliciano Ga Work Phone: [facility] [place] Start: 09-11-2021 End: 09-11-2021 ambulatory Feliciano Ga Other [facility] Other Start: 09-11-2021 Nursing evaluation o f patient and report Feliciano Ga [facility] [place] Start: 09-10-2021 Telephone encounter Feliciano Ga [facility] [place] Start: 09-10-2021 End: 09-11-[address] NELSY GA [facility] [employer] Other Start: 09-04-2021 End: 09-04-2021 ambulatory Feliciano Ga Other [facility] Other Start: 09-04-2021 Telephone encounter Feliciano Ga [facility] [place] Start: 08-31-2021 End: 08-31-2021 ambulatory Feliciano Ga Other [facility] Other Start: 08-31-2021 Office outpatient visit 25 minutes Feliciano Ga [facility] [place] Start: 08-17-2021 End: 08-18-[address] TROY BRAMBILA . Facility:[facility]1 Start: 08-13-2021 End: 08-14-[address] TROY BRAMBILA . Facility:[facility] Start: 08-04-2021 Office outpatient visit 15 minutes Feliciano Ga Work Phone: [facility] 250 DO Work Phone: Start: 08-04-[address] Feliciano Ga Facility: Start: 07-28-2021 End: 07-28-[address] TROY BRAMBILA . Facility:[facility]1 Start: 05-25-2021 End: 05-25-2021 ambulatory Feliciano Ga Other [employer] Other Start: 05-25-2021 Telephone encounter Feliciano Ga [facility] Start: 03-23-2021 Rx Renewal Feliciano Ga Work Phone: [facility] 250 DO Work Phone: Start: 03-11-2021 End: 03-11-2021 ambulatory Feliciano Ga Other [facility] [employer] Other Start: 03-11-2021 Telephone encounter Feliciano Ga [facility] Start: 03-05-2021 End: 03-05-2021 ambulatory Feliciano Ga Other [employer] Other Start: 03-05-2021 Telephone encounter Feliciano Ga [facility] Start: 02-17-2021 Rx Renewal Feliciano Ga Work Phone: [facility] 250 DO Work Phone: Start: 01-19-2021 End: 01-19-2021 ambulatory Feliciano Ga Other [facility] [employer] Other Start: 01-19-2021 Office outpatient visit 25 minutes Feliciano Ga [facility] Start: 01-16-2021 Rx Renewal Feliciano Ga Work Phone: [facility] 250 DO Work Phone: Start: 01-13-2021 Rx Renewal Feliciano Ga Work Phone: [facility] 250A [place] Work Phone: Start: 01-05-2021 Office outpatient visit 15 minutes Feliciano Ga Work Phone: [facility] 250 DO Work Phone: Start: 01-05-2021 Patient encounter procedure Feliciano Ga Work Phone: [facility] 250 DO Work Phone: Start: 12-15-2016 End: 12-16-2016 Ambulatory [facility] Facility:[facility] Procedures Date Procedure Procedure [...] Feliciano Ga Work Phone: Comment on above: [facility]; Arthroplasty of knee Feliciano P Harmeet Work Phone: Comment on above: 2016 and 2020; Arthroscopy of shoulder Brya n Louis Ga Work Phone: Cardiac catheterization Brya n P [...] Irineo Mcintyre, Status: Pen, Time: 9:40 AM [facility] 250 DO Work Phone: Start: 07-07-2022 FUV, Provider: Irineo Mcintyre, Status: Pen, Time: 9:20 AM FUV, Provider: Irineo Mcintyre, Status: Pen, Time: 9:20 AM [facility] 250 DO Work Phone: Start: 03-15-2022 FABI DOMINGUEZ, Provider : LEVAR MARES PATTERN GENERATOR OPERATOR 1,[id number], Status: Pen, Time: 10:30 AM HOLTER MON, Provider: LEVAR MARES PATTERN GENERATOR OPERATOR 1,[id number], Status: Pen, Time: 10:30 AM [facility] 250 DO Work Phone: Start: 03-10-2022 FUV, Provider: Enedelia Mix, Status: Pen, Time: 2:30 PM FUV, Provider: Enedelia Mix, Status: Pen, Time: 2:30 PM [facility] 250 DO Work Phone: Start: 01-16-2022 [facility] Start: 01-12-2022 Referral to infectio us diseases physician [facility] Start: 01-09-2022 Referral to neurologist [facility] Start: 01-09-2022 Referral to Rate Marker [facility] Start: 01-09-2022 Hospital admission [facility] Start: 01-09-2022 [facility] Start: 07-08-2021 FUV, Provider: Irineo Mcintyre, Status: Pen, Time: 9:50 AM [facility] 250 DO Work Phone: Start: 06-16-2021 FUV, Provider: Irineo Mcintyre, Status: Pen, Time: 9:30 AM FUV, Provider: Irineo Mcintyre, Status: Pen, Time: 9:30 AM [facility] 250 DO Work Phone: Anion gap measurement [facility] Work Phone: Bacteria identified in Urine by Culture Urine Culture [facility] Basophil count [facility] Work Phone: Basophil percent differential count [facility] Work Phone: Blood culture for bacteria, including anaerobic screen Blood Culture [facility] Calcium [Mass/volume ] in Serum or Plasma [facility] Work Phone: Carbon dioxide, tota l [Moles/volume] in Serum or Plasma [facility] Work Phone: Chloride [Moles/volu me] in Serum or Plasma [facility] Work Phone: Creatinine and Glome rular filtration rate.predicted panel - Serum, Plasma or Blood [facility] Work Phone: Eosinophil percent differential count [facility] Work Phone: Eosinophils [#/volum e] in Blood [facility] Work Phone: Erythrocyte mean corpuscular volume determination [facility] Work Phone: Erythrocytes [#/volu me] in Blood [facility] Work Phone: Glucose [Mass/volume ] in Serum or Plasma [facility] Work Phone: Hematocrit [Volume Fraction] of Blood [facility] Work Phone: Hemoglobin [Mass/vol ume] in Blood [facility] Work Phone: Hemoglobin distribut ion, width determination [facility] Work Phone: Leukocytes [#/volume ] in Blood [facility] Work Phone: Lymphocyte count [facility] Work Phone: Lymphocyte percent differential count [facility] Work Phone: Mean corpuscular hemoglobin concentration determination [facility] Work Phone: Mean corpuscular hemoglobin determination [facility] Work Phone: Measurement of renal function [facility] Work Phone: Monocyte count [facility] Work Phone: Monocyte percent differential count [facility] Work Phone: Neutrophil count [facility] Work Phone: Neutrophil percent differential count [facility] Work Phone: Patient referral [facility] Work Phone: Platelet mean volume determination [facility] Work Phone: Platelets [#/volume] in Blood [facility] Work Phone: Potassium [Moles/vol ume] in Serum or Plasma [facility] Work Phone: Sodium [Moles/volume ] in Serum or Plasma [facility] Work Phone: Urea nitrogen [Mass/volume] in Serum or Plasma [facility] Work Phone: Immunizations Immunization Date Immunization Notes Care Provider Chelsi calle 12-17-2022 influenza, high dose seasonal, preservative-free Feliciano Ga Other [employer] Other 12-24-2021 influenza, seasonal, injectable Feliciano Ga Other [employer] Other 12-24-2021 COVID-19 Moderna (BIvalent) Feliciano Ga Other [employer] Other 12-24-2021 Fluzone High-Dose Quadrivalent 0.7 ML Intramuscular Suspension Prefilled Syringe Feliciano Ga Work Phone: [facility] [employer] 250 DO Work Phone: 02-18-2021 Moderna COVID-19 Vaccine 100 MCG/0.5ML Intramuscular Suspension Feliciano Ga Work Phone: [facility] [employer] 250 DO Work Phone: 05-28-2020 Moderna COVID-19 Vaccine 100 MCG/0.5ML Intramuscular Suspension Feliciano P Harmeet Work Phone: [facility] [employer] 250 DO Work Phone: 05-05-2020 COVID-19 Vaccine Moderna - Documentation Purposes Only Feliciano Ga Other [employer] Other 04-30-2020 Moderna COVID-19 Vaccine 100 MCG/0.5ML Intramuscular Suspension Feliciano Spencers Work Phone: [facility] [employer] 250 DO Work Phone: 04-14-2020 Moderna COVID-19 Vaccine 100 MCG/0.5ML Intramuscular Suspension Feliciano Louis Harmeet Work Phone: [employer] Motiga DO Work Phone: 12-22-2019 Fluzone High-Dose Quadrivalent 0.7 ML Intramuscular Suspension Prefilled Syringe Feliciano Louis [employer] Work Phone: [facility] 12-06-2019 influenza, seasonal, injectable Feliciano Spencers Work Phone: [facility] Motiga DO Work Phone: 11-22-2018 influenza, seasonal, injectable Feliciano Tjcatie Other [employer] Other 11-20-2018 Seasonal trivalent influenza vaccine, adjuvanted, preservative free Feliciano Ga Work Phone: [facility] Motiga DO Work Phone: 11-05-2018 influenza virus vaccine, unspecified formulation Feliciano Spencers Work Phone: [facility] Motiga DO Work Phone: 12-06-2017 influenza, high dose seasonal, preservative-free Feliciano P Tjs Work Phone: [facility] Motiga DO Work Phone: 12-05-2017 influenza, seasonal, injectable Feliciano Spencers Other [employer] Other 11-05-2017 influenza virus vaccine, unspecified formulation Feliciano Ga Work Phone: [facility] 250 DO Work Phone: 04-07-2016 influenza virus vaccine, unspecified formulation Feliciano Ga Work Phone: [facility] 250 DO Work Phone: 04-07-2016 pneumococcal conjuga te vaccine, 13 valent Feliciano Ga Work Phone: [place] [address] DO Work Phone: 01-24-2012 Kenalog 40/Xylocaine Feliciano glaser Other [facility] [employer] Other Payers Date Payer Category Payer Medicare 2022 Unknown 2021 Self-pay [id number] 2016 Medicare [id number] 1959 [facility] [id number]. 1958 Medicare [id number] 2.1 .840.1.222864. 1941 Unknown [id number] 2. 840.1.178652.3.579.2. 1941 Unknown [id number] 2. 840.1.423939.3.579.2. 1941 Unknown [id number] 2. 840.1.403290.3.579.2. 1941 Unknown [id number] 2.16 840.1.051743.3.579.2. 1941 Unknown [id number] 2.16. 840.1.852149.3.579.2. 1941 Unknown [id number] 2.16 840.1.590433.3.579.2. 1941 Unknown [id number] 2.16. 840.1.755370.3.579.2.356 1941 Unknown [id number] 2.16. 840.1.951451.3.579.2.356 1941 Unknown [id number] 2.16. 840.1.047452.3.579.2.356 1941 Unknown [id number] 2.16.84 0.1.109676.3.579.2.593 1941 Unknown [id number] 2.16.84 0.1.757700.3.579.2.593 1941 Unknown [id number] 2.16.84 0.1.678419.3.579.2.593 1941 Unknown [id number] 2.16.84 0.1.953581.3.579.2.593 1941 Unknown [id number] 2.16.84 0.1.811029.3.579.2.593 1941 Unknown [id number] 2.16.84 0.1.062207.3.579.2.593 1941 Unknown [id number] 2.16.84 0.1.578646.3.579.2.593 1941 Unknown [id number] 2.16.84 0.1.773162.3.579.2.593 1941 Unknown [id number] 2.16.84 0.1.107181.3.579.2.593 1941 Unknown [id number] 2.16.84 0.1.700067.3.579.2.593 1941 Unknown [id number] 2.16.84 0.1.752676.3.579.2.593 1941 Unknown [id number] 2.16.84 0.1.610305.3.579.2.593 1941 Unknown [id number] 2.16.84 0.1.370482.3.579.2.593 1941 Unknown [id number] 2.16. 840.1.179722.3.579.2.196 1941 Unknown [id number] 2.16. 840.1.515197.3.579.2.196 Unknown [id number] 2.16.8 40.1.239634.3.579.2.531 Unknown [id number] 2.16.8 40.1.431256.3.579.2.531 Unknown [id number] 2.16.8 40.1.552035.3.579.2.531 Unknown [id number] 2.16.8 40.1.972984.3.579.2.531 Unknown [id number] 2.16.8 40.1.242320.3.579.2.531 Unknown [id number] 2.16.8 40.1.727210.3.579.2.531 Social History Date Type Detail Facility Daily alcohol use Daily alcohol use [facility] [place] [address] DO Work Phone: Comment on above: 1-2 beers; Coffee 2 cups daily; Quit smoking in 1979 ; Sex Assigned At Sex Assigned At Bir [facility] Other Start: 12-26-2019 End: 01-13-2022 Tobacco smoking status NHIS Ex-smoker (finding) [facility] Start: 1940 Sex Assigned At Male F [facility] Medical Equipment Procedure Code Equipment Code Equipment Origin al Text Equipment Identifier Dates Arthroplasty, knee, total, minimally invasive ART SURF LEFT 11MM [id number] FDA Start: 11-05-2019 Arthroplasty, knee, total, minimally invasive Orthopaedic cement, non-medicated [id number] FDA Start: 11-05-2019 Arthroplasty, knee, total, minimally invasive Uncoated knee femur prosthesis ()[id number] FDA Start: 11-05-2019 Arthroplasty, knee, total, minimally invasive Uncoated knee tibia prosthesis, metallic ()[id number] FDA Start: 11-05-2019 Arthroplasty, knee, total, minimally invasive Polyethylene patella prosthesis ()[id number] FDA Start: 11-05-2019 Arthroplasty, knee, total, minimally [...] status Patient is Pro gressing Toward Baseline [facility] Work Phone: Mental Status Date Assessment Result Facility 01-16-2022 Cognitive function Cognitive Sta tus Patient at Baseline [facility] Work Phone: Clinical Notes 05-23-2006 to 03-18-2023 Note Date & Type Note Facility 03-18-2023 Evaluation note Encounter Date Diagnosis Assessment Notes Mar, Lumbar degenerative disc disease (ICD-10 - M51.36) Patient is following with pain management at [facility], had a recent branch block. He is [...] above medication. We will continue to monitor. [employer] Other 10-02-2023 Evaluation note* Encounter Date Diagnosis Assessment Notes Treatment Notes Treatment Clinical Notes Dec, Insomnia (ICD-10 - G47.00) [employer] Other 09-26-2023 Evaluation note* Encounter Date Diagnosis Assessment Notes Treatment Notes Treatment Clinical Notes Nov, Gout (ICD-10 - M10.9) [employer] Other 07-12-2023 Evaluation note* Encounter Date Diagnosis [...] the care of pain management out of [place]. States the pain is slightly improved and [...] to thin out the secretions. Rx sent [employer] Other 07-05-2023 Evaluation note* Encounter Date Diagnosis Assessment Notes Treatment Notes Treatment Clinical Notes Sep, Hyperlipidemia (ICD-10 - E78.5) Sep, Insomnia (ICD-10 - G47.00) Sep, Hypothyroidism, unspecified (ICD-10 - E03.9) [employer] Other 04-03-2023 Evaluation note* Encounter Date Diagnosis Assessment Notes Treatment Notes Treatment Clinical Notes Jun, Lumbar degenerative disc disease (ICD-10 - M51.36) I am in agreement the patient keep the above medication on hand to use sparingly for back pain and to continue following with Pain Management. The patient states he does still go to the [facility] for hunting trips with a group [...] Screening for prostate cancer (ICD-10 - Z12.5) [employer] Other 03-28-2023 Evaluation note* Encounter Date Diagnosis Assessment Notes Treatment Notes Treatment Clinical Notes May, Insomnia (ICD-10 - G47.00) [employer] Other 03-07-2023 Evaluation note* Encounter Date Diagnosis Assessment Notes Treatment Notes Treatment Clinical Notes May, Atrial fibrillation (ICD-10 - I48.91) [employer] Other 02-09-2023 NoteCONSULTATION CONSULTATION DATE: 04/15/2022 HISTORY [...] in the clinic in three months' time.[id number] Evaluation note* Encounter Date Diagnosis Assessment Notes [...] wear a hat out in the sun. [employer] Other 12-29-2022 Evaluation note* Encounter Date Diagnosis Assessment Notes Treatment Notes Treatment Clinical Notes Feb, Insomnia (ICD-10 - G47.00) Feb, Hypothyroidism, unspecified (ICD-10 - E03.9) [employer] Other 12-28-2022 Evaluation note* Encounter Date Diagnosis Assessment Notes Treatment Notes Treatment Clinical Notes Feb, Insomnia (ICD-10 - G47.00) Feb, Hypothyroidism, unspecified (ICD-10 - E03.9) [employer] Other 12-15-2022 NoteCONSULTATION CONSULTATION DATE: 02/18/2022 HISTORY [...] move forward with the plan of care.[id number] Evaluation note* Encounter Date Diagnosis Assessment Notes Treatment Notes Treatment Clinical Notes Feb, Lumbar degenerative disc disease (ICD-10 - M51.36) Daughter feels that patient was doing quite well while he was getting daily PT at [facility], however now that he has home [...] upon examination, continue using the above powder. [employer] Other 11-11-2022 Progress note Author Raji Ennis [facility] January 15, 2022 4:51pm Note Date/Time January 15, 2022 4:51pm [facility] [address] [place] [address] Hospitalist Progress Note Signed Patient: Irineo Wallis Jr MR# : [id number] : 1940 Acct:[id number] Age/Sex: 81 / M Adm Date: 2 Loc: Room: [address] [place] [address] Type: ADM IN Attending Dr: Raji Ennis [...] mg 01/09/22 14:41 Bisacodyl 10 Mg Supp.Rect MO 01/09/23 14:40 DAILY PRN Constipation Bisacodyl 10 [...] Propionate 1 spray 01/09/22 15:17 Fluticasone Propionate Butte 120 Butte/16 Gm Bottle NARES-BOTH 01/09/23 15:16 QHS PRN [...] tomorrow. Documented By: Raji Ennis MD 01/15/22 1641 Signed By: <Electronically signed by Raji Ennis MD> 01/15/22 7571 [facility] Work Phone: 1(829) 157-410211-11-2022 Progress note Author Victor Manuel Reynolds [facility] January 15, 2022 12:21pm Note Date/Time January 15, 2022 12:21pm [facility] [address] [place] [address] Infect. Disease Progress Note Signed Patient: Irineo Wallis Jr MR# : [id number] : 1940 Acct:[id number] Age/Sex: 81 / M Adm Date: 2 Loc: Room: [address] [place] [address] Type: ADM IN Attending Dr: Raji Ennis [...] 5 Mg Tablet) 5 mg PO BID [facility] Stop: 01/09/23 20:59 Last Admin: 01/15/22 08:46 Dose: 5 mg Atorvastatin Calcium (Atorvastatin 40 Mg Tablet) 40 mg PO QHS [facility] Stop: 01/09/23 21:59 Last Admin: 01/14/22 21:32 Dose: 40 mg Bisacodyl (Bisacodyl 10 Mg Supp.Rect) 10 mg MO DAILY PRN PRN Reason: Constipation Stop: 01/09/23 14:40 Bisacodyl (Bisacodyl 5 Mg Tablet.Dr) 10 mg PO DAILY PRN PRN Reason: Constipation Stop: 01/09/23 14:40 Last Admin: 01/14/22 19:57 Dose: 10 mg Bumetanide (Bumetanide 1 Mg Tablet) 1 mg PO DAILY@0800 [facility] Stop: 01/14/23 15:59 Last Admin: 01/15/22 08:46 Dose: 1 mg Docusate Sodium (Docusate 100 Mg Capsule) 100 mg PO BID [facility] Stop: 01/09/23 20:59 Last Admin: 01/15/22 08:46 Dose: 100 mg Fluticasone Propionate (Fluticasone Propionate Butte 120 Butte/16 Gm Bottle) 1 spray NARES-BOTH QHS PRN PRN Reason: Nasal Congestion Stop: 01/09/23 15:16 Magnesium Sulfate (Magnesium Sulf 2gm-*Swfi*) 2 gm in 50 mls @ 25 mls/hr IV DAILY PRN PRN Reason: Magnesium Level < 1.5 Stop: 01/09/23 14:40 Levothyroxine Sodium (Levothyroxine 150 Mcg Tablet) 150 mcg PO DAILY@0630 [facility] Stop: 01/10/23 06:29 Last Admin: 01/15/22 06:38 Dose: Not Given Magnesium Hydroxide (Magnesium Hydroxide Susp 30 Ml Udc) 30 ml PO BID PRN PRN Reason: Constipation Stop: 01/09/23 14:40 Magnesium Oxide (Magnesium Oxide 400 Mg Tablet) 400 mg PO DAILY [facility] Stop: 01/10/23 08:59 Last Admin: 01/15/22 08:46 Dose: 400 mg Nitroglycerin (Nitroglycerin 0.4 Mg Tab.Subl) 0.4 mg SUBLINGUAL Q5MIN.X3 PRN PRN Reason: Chest Pain Stop: 01/09/23 14:40 Pom Eszopiclone 3 Mg (Tablet) 3 mg PO HS [facility] Stop: 01/11/23 21:59 Last Admin: 01/14/22 21:32 [...] 20 Meq Tab.Er.Prt) 20 meq PO QPM [facility] Stop: 01/09/23 20:59 Last Admin: 01/14/22 21:32 Dose: 20 meq Sodium Chloride (Sodium Chloride 0.9 % 10 Ml Syringe) 0 ml IV-PUSH PRN PRN PRN Reason: Flush Stop: 01/09/23 09:37 Last Admin: 01/10/22 23:31 Dose: 10 ml Sodium Chloride (Sodium Chloride 0.9 % 10 Ml Syringe) 0 ml IV-PUSH QSHIFT [facility] Stop: 01/09/23 21:59 Last Admin: 01/15/22 06:38 [...] signed by MD Victor Manuel Reynolds> 01/15/221 [facility] Work Phone: 1(289) 779-661211-10-2022 Progress note Author Raji Ennis [facility] January 14, 2022 5:43pm Note Date/Time January 14, 2022 5:43pm [facility] [address] [place] [address] Hospitalist Progress Note Signed Patient: Irineo Wallis Jr MR# : [id number] : 1940 Acct:[id number] Age/Sex: 81 / M Adm Date: 2 Loc: Room: [address] [place] [address] Type: ADM IN Attending Dr: Raji Ennis [...] mg 01/09/22 14:41 Bisacodyl 10 Mg Supp.Rect MO 01/09/23 14:40 DAILY PRN Constipation Bisacodyl 10 [...] Propionate 1 spray 01/09/22 15:17 Fluticasone Propionate Butte 120 Butte/16 Gm Bottle NARES-BOTH 01/09/23 15:16 QHS PRN [...] <Electronically signed by Raji Ennis MD> 01/14/221742 [facility] Work Phone: 1(538) 492-679111-10-2022 Progress note Author Victor Manuel Reynolds [facility] January 14, 2022 9:39am Note Date/Time January 14, 2022 9:39am [facility] [address] [place] [address] Infect. Disease Progress Note Signed Patient: Irineo Wallis Jr MR# : [id number] : 1940 Acct:[id number] Age/Sex: 81 / M Adm Date: 2 Loc: Room: [address] [place] [address] Type: ADM IN Attending Dr: Raji Ennis [...] Appearance Clear Urine pH 5.5 Ur Specific Lohn 1.012 Urine Protein 30 H Urine Glucose [...] 300 Mg Tablet) 300 mg PO DAILY [facility] Stop: 01/10/23 08:59 Last Admin: 01/14/22 08:04 Dose: 300 mg Apixaban (Apixaban 5 Mg Tablet) 5 mg PO BID [facility] Stop: 01/09/23 20:59 Last Admin: 01/14/22 08:04 Dose: 5 mg Atorvastatin Calcium (Atorvastatin 40 Mg Tablet) 40 mg PO QHS [facility] Stop: 01/09/23 21:59 Last Admin: 01/13/22 21:26 Dose: 40 mg Bisacodyl (Bisacodyl 10 Mg Supp.Rect) 10 mg MO DAILY PRN PRN Reason: Constipation Stop: 01/09/23 14:40 Bisacodyl (Bisacodyl 5 Mg Tablet.Dr) 10 mg PO DAILY PRN PRN Reason: Constipation Stop: 01/09/23 14:40 Last Admin: 01/13/22 21:26 Dose: 10 mg Bumetanide (Bumetanide 1 Mg Tablet) 1 mg PO BID@0800,1600 [facility] Stop: 01/13/23 15:59 Docusate Sodium (Docusate 100 Mg Capsule) 100 mg PO BID [facility] Stop: 01/09/23 20:59 Last Admin: 01/14/22 08:03 Dose: 100 mg Fluticasone Propionate (Fluticasone Propionate Butte 120 Butte/16 Gm Bottle) 1 spray NARES-BOTH QHS PRN PRN Reason: Nasal Congestion Stop: 01/09/23 15:16 Magnesium Sulfate (Magnesium Sulf 2gm-*Swfi*) 2 gm in 50 mls @ 25 mls/hr IV DAILY PRN PRN Reason: Magnesium Level < 1.5 Stop: 01/09/23 14:40 Cefepime HCl (Maxipime) 2 gm in 50 mls @ 100 mls/hr IV Q12H [facility] Last Admin: 01/14/22 03:05 Dose: 100 mls/hr Vancomycin HCl 1.25 gm/ (Dextrose) 275 mls @ 183.333 mls/hr IV Q24H [facility] Stop: 01/13/23 18:59 Last Infusion: 01/13/22 21:17 Dose: Infused Levothyroxine Sodium (Levothyroxine 150 Mcg Tablet) 150 mcg PO DAILY@0630 [facility] Stop: 01/10/23 06:29 Last Admin: 01/14/22 05:54 Dose: 150 mcg Magnesium Hydroxide (Magnesium Hydroxide Susp 30 Ml Udc) 30 ml PO BID PRN PRN Reason: Constipation Stop: 01/09/23 14:40 Magnesium Oxide (Magnesium Oxide 400 Mg Tablet) 400 mg PO DAILY [facility] Stop: 01/10/23 08:59 Last Admin: 01/14/22 08:04 [...] 20 Meq Tab.Er.Prt) 20 meq PO QPM [facility] Stop: 01/09/23 20:59 Last Admin: 01/13/22 21:26 [...] by MD Victor Manuel Reynolds> 01/14/22 0939 [facility] Work Phone: 1(780) 347-364811-09-2022 Progress note Author Mani Dickens [facility] January 13, 2022 6:10pm Note Date/Time January 13, 2022 8 :13am [facility] [address] [place] [address] Neurology Progress Note Signed with Addenda Patient: Irineo Wallis Jr MR# : [id number] : 1940 Acct:[id number] Age/Sex: 81 / M Adm Date: 2 Loc: Room: 5O7601-3 Type: ADM IN Attending Dr: Raji Ennis [...] extremities * Unable to test finger-nose or [id number] due to drowsiness REFLEX EXAM: * 1/4 [...] Therapy Recommendations: OT Recommendations OT Recommended Discharge Shelter Facility Location OT Recommended Services at Physical Therapy,Occupational Therapy Discharge PT Recommendations PT Recommended Discharge Shelter Facility Location PT Recommended Services at Physical [...] <Electronically signed by MEI Knight> 01/13/22 1520 [facility] Work Phone: 1(671) 389-312011-09-2022 Progress note Author Raji Ennis [facility] January 13, 2022 3:44pm Note Date/Time January 13, 2022 3 :27pm [facility] [address] [place] [address] Hospitalist Progress Note Signed Patient: Irineo Wallis Jr MR# : [id number] : 1940 Acct:[id number] Age/Sex: 81 / M Adm Date: 2 Loc: Room: [address] [place] [address] Type: ADM IN Attending Dr: Raji Ennis [...] mg 01/09/22 14:41 Bisacodyl 10 Mg Supp.Rect MO 01/09/23 14:40 DAILY PRN Constipation Bisacodyl 10 [...] Propionate 1 spray 01/09/22 15:17 Fluticasone Propionate Butte 120 Butte/16 Gm Bottle NARES-BOTH 01/09/23 15:16 QHS PRN [...] signed by Raji Ennis MD> 01/13/22 1543 [facility] Work Phone: [phone] 274-292711-09-2022 Consult note Author Victor Manuel Reynolds [facility] January 13, 2022 10:45am Note Date/Time January 13, 2022 1 0:45am [facility] [address] [place] [address] Infect. Disease Consult Note Signed Patient: Irineo Wallis Jr MR# : [id number] : 1940 Acct:[id number] Age/Sex: 81 / M Adm Date: 2 Loc: Room: [address] [place] [address] Type: ADM IN Attending Dr: Raji Ennis [...] negative unless noted below or in HPI [facility] Attestation Statement: The following information was validated [...] 300 Mg Tablet) 300 mg PO DAILY [facility] Stop: 01/10/23 08:59 Last Admin: 01/13/22 09:43 Dose: 300 mg Apixaban (Apixaban 5 Mg Tablet) 5 mg PO BID [facility] Stop: 01/09/23 20:59 Last Admin: 01/13/22 09:43 Dose: 5 mg Atorvastatin Calcium (Atorvastatin 40 Mg Tablet) 40 mg PO QHS [facility] Stop: 01/09/23 21:59 Last Admin: 01/12/22 22:51 Dose: 40 mg Bisacodyl (Bisacodyl 10 Mg Supp.Rect) 10 mg MO DAILY PRN PRN Reason: Constipation Stop: 01/09/23 14:40 Bisacodyl (Bisacodyl 5 Mg Tablet.Dr) 10 mg PO DAILY PRN PRN Reason: Constipation Stop: 01/09/23 14:40 Last Admin: 01/12/22 08:22 Dose: 10 mg Bumetanide (Bumetanide 1 Mg/4 Ml Vial) 1 mg IV-PUSH BID@0800,1600 [facility] Stop: 01/13/23 07:59 Last Admin: 01/13/22 09:43 Dose: 1 mg Docusate Sodium (Docusate 100 Mg Capsule) 100 mg PO BID [facility] Stop: 01/09/23 20:59 Last Admin: 01/13/22 09:43 Dose: 100 mg Fluticasone Propionate (Fluticasone Propionate Butte 120 Butte/16 Gm Bottle) 1 spray NARES-BOTH QHS PRN PRN Reason: Nasal Congestion Stop: 01/09/23 15:16 Magnesium Sulfate (Magnesium Sulf 2gm-*Swfi*) 2 gm in 50 mls @ 25 mls/hr IV DAILY PRN PRN Reason: Magnesium Level < 1.5 Stop: 01/09/23 14:40 Cefepime HCl (Maxipime) 2 gm in 50 mls @ 100 mls/hr IV Q12H [facility] Last Admin: 01/13/22 03:07 Dose: 100 mls/hr Levothyroxine Sodium (Levothyroxine 150 Mcg Tablet) 150 mcg PO DAILY@0630 [facility] Stop: 01/10/23 06:29 Last Admin: 01/13/22 06:26 Dose: 150 mcg Magnesium Hydroxide (Magnesium Hydroxide Susp 30 Ml Udc) 30 ml PO BID PRN PRN Reason: Constipation Stop: 01/09/23 14:40 Magnesium Oxide (Magnesium Oxide 400 Mg Tablet) 400 mg PO DAILY [facility] Stop: 01/10/23 08:59 Last Admin: 01/13/22 09:43 Dose: 400 mg Nitroglycerin (Nitroglycerin 0.4 Mg Tab.Subl) 0.4 mg SUBLINGUAL Q5MIN.X3 PRN PRN Reason: Chest Pain Stop: 01/09/23 14:40 Pom Eszopiclone 3 Mg (Tablet) 3 mg PO HS [facility] Stop: 01/11/23 21:59 Last Admin: 01/12/22 22:51 Dose: 3 mg Nystatin (Nystatin 100,000 Unit/Gram Powder 15 Gm Bottle) 1 applic TOPICAL TID [facility] Stop: 01/09/23 21:59 Last Admin: 01/13/22 09:43 [...] 20 Meq Tab.Er.Prt) 20 meq PO QPM [facility] Stop: 01/09/23 20:59 Last Admin: 01/12/22 22:51 [...] by MD Victor Manuel Reynolds> 01/13/22 1045 [facility] Work Phone: [phone] Progress note Author W Be Francisco Javier [facility] January 12, 2022 6:11pm Note Date/Time January 12, 2022 6 :11pm [facility] [address] [place] [address] Cardiology Progress Note Signed Patient: Irineo Wallis Jr MR# : [id number] : 1940 Acct:[id number] Age/Sex: 81 / M Adm Date: 2 Loc: 3T Room: [address] [place] [address] Type: ADM IN Attending Dr: Raji Ennis [...] % (Auto) 76.3 Lymph % (Auto) 12.2 Preble % (Auto) 9.1 Eos % (Auto) 1.9 Baso % (Auto) 0.5 Neut # (Auto) 7.7 Lymph # (Auto) 1.2 Preble # (Auto) 0.9 H Eos # (Auto) [...] 2.9 Globulin (PEP) 2.4 Albumin/Globulin (PEP) 1.2 Pnthm-2-Zwfvbotee 0.4 Dyzqd-9-Zbqukgfeg 0.7 Beta Globulins 0.6 L Gamma Globulins 0.8 M-Franky Not observed PEP Note IgG 816 IgA 171 IgM 105 Serum Immunofixation 01/12/22 06:42 Corrected WBC Uncorrected WBC Count RBC Hgb Hct MCV MCH MCHC RDW Plt Count MPV Neut % (Auto) Lymph % (Auto) Preble % (Auto) Eos % (Auto) Baso % (Auto) Neut # (Auto) Lymph # (Auto) Preble # (Auto) Eos # (Auto) Baso # (Auto) Nucleated RBC % (auto) PHA Creatinine Clear Sodium Potassium Chloride Carbon Dioxide Anion Gap BUN Creatinine Est GFR ( Amer) Est GFR (Non-Af Amer) Glucose Calcium C-Reactive Prot, Quant 8.4 H Serum Total Protein Albumin (Send Out) Globulin (PEP) Albumin/Globulin (PEP) Pxlfw-2-Cfoqmvvbz Tmwki-7-Xjyvqifbb Beta Globulins Gamma Globulins M-Franky PEP Note [...] <Electronically signed by Bhupinder Mcintyre DO> 01/12/22 1361 [facility] Work Phone: [phone] Progress note Author Raji [facility] January 12, 2022 4:38pm Note Date/Time January 12, 2022 4 :38pm [facility] [address] [place] [address] Hospitalist Progress Note Signed Patient: Irineo Wallis Jr MR# : [id number] : 1940 Acct:[id number] Age/Sex: 81 / M Adm Date: 2 Loc: Room: [address] [place] [address] Type: ADM IN Attending Dr: Raji Ennis [...] mg 01/09/22 14:41 Bisacodyl 10 Mg Supp.Rect MO 01/09/23 14:40 DAILY PRN Constipation Bisacodyl 10 [...] Propionate 1 spray 01/09/22 15:17 Fluticasone Propionate Butte 120 Butte/16 Gm Bottle NARES-BOTH 01/09/23 15:16 QHS PRN [...] <Electronically signed by Raji Ennis MD> 01/12/22 0488 [facility] Work Phone: [phone] 351-649811-08-2022 Progress note Author Mani Dickens [facility] January 12, 2022 4:10pm Note Date/Time January 12, 2022 8 :19am [facility] [address] [place] [address] Neurology Progress Note Signed Patient: Irineo Wallis Jr MR# : [id number] : 1940 Acct:[id number] Age/Sex: 81 / M Adm Date: 2 Loc: Room: [address] [place] [address] Type: ADM IN Attending Dr: Raji Ennis [...] extremities * Unable to test finger-nose or ovic-wq-wyab due to drowsiness REFLEX EXAM: * 1/4 [...] Therapy Recommendations: OT Recommendations OT Recommended Discharge Shelter Facility Location OT Recommended Services at Physical Therapy,Occupational Therapy Discharge PT Recommendations PT Recommended Discharge Shelter Facility Location PT Recommended Services at Physical [...] the plan of care and confirmed the SPIRITS MODEL note The patient is an 81-year-old man [...] signed by MD Mani Dickens> 01/12/22 1610 [facility] Work Phone: [phone] 363-515011-07-2022 Progress note Author Raji Ennis [facility] January 11, 2022 5:04pm Note Date/Time January 11, 2022 5 :04pm [facility] [address] [place] [address] Hospitalist Progress Note Signed Patient: Irineo Wallis Jr MR# : [id number] : 1940 Acct:[id number] Age/Sex: 81 / M Adm Date: 2 Loc: 3T Room: [address] [place] [address] Type: ADM IN Attending Dr: Raji Ennis [...] mg 01/09/22 14:41 Bisacodyl 10 Mg Supp.Rect MO 01/09/23 14:40 DAILY PRN Constipation Bisacodyl 10 [...] Propionate 1 spray 01/09/22 15:17 Fluticasone Propionate Butte 120 Butte/16 Gm Bottle NARES-BOTH 01/09/23 15:16 QHS PRN [...] prophylaxis Documented By: Raji Ennis MD 01/11/22 6100 Signed By: <Electronically signed by Raji Ennis MD> 01/11/22 5063 [facility] Work Phone: [phone] Progress note Author Mani Dickens [facility] January 11, 2022 5:02pm Note Date/Time January 11, 2022 8 :55am [facility] [address] [place] [address] Neurology Progress Note Signed Patient: Irineo Wallis Jr MR# : [id number] : 1940 Acct:[id number] Age/Sex: 81 / M Adm Date: 2 Loc: Room: [address] [place] [address] Type: ADM IN Attending Dr: Raji Ennis [...] knee to all modalities. CEREBELLAR EXAM: * Pzlahg-ow-kgoy and alternating movements are intact and normal in bilateral upper extremities * Ctkp-ug-opdz and alternating movements are intact and normal [...] Therapy Recommendations: OT Recommendations OT Recommended Discharge Shelter Facility Location OT Recommended Services at Physical Therapy,Occupational Therapy Discharge PT Recommendations PT Recommended Discharge Shelter Facility Location PT Recommended Services at Physical [...] the plan of care and confirmed the SPIRITS MODEL note The patient is an 81-year-old man [...] <Electronically signed by MD Mani Dickens> 01/11/22 1708 [facility] Work Phone: [phone] Progress note Author W Be Mcintyre [facility] January 11, 2022 2:09pm Note Date/Time January 11, 2022 2 :09pm [facility] [address] [place] [address] Cardiology Progress Note Signed Patient: Irineo Wallis Jr MR# : [id number] : 1940 Acct:[id number] Age/Sex: 81 / M Adm Date: 2 Loc: Room: [address] [place] [address] Type: ADM IN Attending Dr: Raji Ennis [...] % (Auto) 73.8 Lymph % (Auto) 13.7 Preble % (Auto) 9.6 Eos % (Auto) 2.2 Baso % (Auto) 0.7 Neut # (Auto) 6.3 Lymph # (Auto) 1.2 Preble # (Auto) 0.8 Eos # (Auto) 0.2 [...] signed by Bhupinder Mcintyre DO> 01/11/22 1409 [facility] Work Phone: [phone]) 107-347811-06-2022 Progress note Author Dharmesh Zavala [facility] January 10, 2022 8:54pm Note Date/Time January 10, 2022 8 :54pm [facility] [address] [place] [address] Hospitalist Progress Note Signed Patient: Irineo Wallis Jr MR# : [id number] : 1940 Acct:[id number] Age/Sex: 81 / M Adm Date: 2 Loc: 3T Room: [address] [place] [address] Type: ADM IN Attending Dr: Dharmesh Zavala DO Copies to: ~ Date of Service: 01/10/2022 Subjective Subjective Narrative: When I entered the room the patient tells me that he is getting a pain in the thighs on the top of his legs. He does mention that the people in [place] told me that was due to the [...] mg 01/09/22 14:41 Bisacodyl 10 Mg Supp.Rect MO 01/09/23 14:40 DAILY PRN Constipation Bisacodyl 10 mg 01/09/22 14:41 Bisacodyl 5 Mg Tablet.Dr PO 01/09/23 14:40 DAILY PRN Constipation Bumetanide 1 mg 01/09/22 15:30 01/10/22 14:42 Bumetanide 1 Mg/4 Ml Vial IV-PUSH 01/09/23 15:29 1 mg Q8H ANIBAL Administration Docusate Sodium 100 mg 01/09/22 21:00 01/10/22 08:58 Docusate 100 Mg Capsule PO 01/09/23 20:59 Not Given BID [facility] Fluticasone Propionate 1 spray 01/09/22 15:17 Fluticasone Propionate Butte 120 Butte/16 Gm Bottle NARES-BOTH 01/09/23 15:16 QHS PRN [...] Tablet PO 01/10/23 06:29 150 mcg DAILY@0630 [facility] Administration Magnesium Hydroxide 30 ml 01/09/22 14:41 Magnesium Hydroxide Susp 30 Ml Udc PO 01/09/23 14:40 BID PRN Constipation Magnesium Oxide 400 mg 01/10/22 09:00 01/10/22 08:58 Magnesium Oxide 400 Mg Tablet PO 01/10/23 08:59 400 mg DAILY [facility] Administration Nitroglycerin 0.4 mg 01/09/22 14:41 Nitroglycerin 0.4 Mg Tab.Subl SUBLINGUAL 01/09/23 14:40 Q5MIN.X3 PRN Chest Pain Non-Formulary Medication 3 mg 01/09/22 22:00 Eszopiclone PO 01/09/23 21:59 HS [facility] Nystatin 1 applic 01/09/22 22:00 01/10/22 14:42 [...] <Electronically signed by Dharmesh Zavala DO> 01/10/222053 [facility] Work Phone: [phone] Consult note Author Vikas Mane [facility] January 10, 2022 12:35pm Note Date/Time January 10, 2022 9 :20am [facility] [address] [place] [address] Neurology Consult Note Signed Patient: Irineo Wallis Jr MR# : [id number] : 1940 Acct:[id number] Age/Sex: 81 / M Adm Date: 2 Loc: Room: [address] [place] [address] Type: ADM IN Attending Dr: Dharmesh Zavala DO Copies to: DO Feliciano Pollock DO Kristopher L Lindbloom, DO~ HPI Consult Date: 01/10/22 Transactional Attorney: Vikas Mane DO PMF[facility] Vaccinated for COVID-19?: [...] Esa Cardoso M.D.01/09/2022 10:11 AM Dictation Location: [place] [address] Renal Ultrasound 01/10/22 05:00 IMPRESSION: No hydronephrosis. Impression dictated by: Esa Cardoso M.D.01/10/2022 9:07 AM Dictation Location: [place] [address] Assessment/Plan (1) Falls frequently: Assessment/Problem Details: HPI: [...] rapidly alternating movements. No limb dysmetria with scrmeu-wjjx-fiyrpb testing. DATA REVIEW: MRI lumbar spine from [...] Acute Documented By: Vikas Mane DO 01/10/22 4822 Signed By: <Electronically signed by Vikas Mane DO> 01/10/22 0681 [facility] Work Phone: [phone] Consult note Author Marv Drew [facility] January 10, 2022 11:32am Note Date/Time January 10, 2022 1 1:32am [facility] [address] [place] [address] Cardiology Consult Note Signed Patient: Irineo Wallis Jr MR# : [id number] : 1940 Acct:[id number] Age/Sex: 81 / M Adm Date: 2 Loc: Room: [address] [place] [address] Type: ADM IN Attending Dr: Dharmesh Zavala DO Copies to: DO Marv Catalan MD, [facility] Dharmesh Zavala, ~ Cardiology HPI History of [...] x10E3/uL Lymph # (Auto) 1.0 (1.00-4.8) x10E3/uL Preble # (Auto) 1.0 H (0.0-0.8) x10E3/uL Eos [...] Bradycardia, unspecified Documented By: Marv Drew MD, [facility] 2 1125 Signed By: <Electronically signed by MD DONALD Drew> 01/10/22 1132 [facility] Work Phone: [phone]) 246-127611-05-2022 History and physical note Author Dharmesh Zavala [facility] January 09, 2022 3:30pm Note Date/Time January 09, 2022 3 :30pm [facility] [address] [place] [address] Hospitalist H&P Signed Patient: Irineo Wallis Jr MR# : [id number] : 1940 Acct:[id number] Age/Sex: 81 / M Adm Date: 2 Loc: Room: 6L1543-8 Type: ADM IN Attending Dr: Dharmesh Zavala [...] that he had seen a urologist in [place] recently. Patient used to be on a number of prostate medications but apparently they were stopped because they are not doing what they are supposed to be doing. The patient andhis daughter have a discussion about what urology was doing for the situation without finding a specific answer. Patient also describes that he has been veryconstipated lately and takes an unspecified khhq-elh-tosbrxx generic stool softener. His daughter does point [...] radiofrequency ablations by pain management doctor in [place]. Review of Systems Review of Systems Review [...] % (Auto) 13.5 % (.) 01/09/22 10:36 Preble % (Auto) 14.2 % (.) 01/09/22 10:36 Eos % (Auto) 0.1 % (.) 01/09/22 10:36 Baso % (Auto) 1.0 % (.) 01/09/22 10:36 Neut # (Auto) 4.3 x10E3/uL (1.8-7.7) 01/09/22 10:36 Lymph # (Auto) 0.8 x10E3/uL (1.00-4.8) L 01/09/22 10:36 Preble # (Auto) 0.9 x10E3/uL (0.0-0.8) H 01/09/22 [...] pH 5.5 (5.0-9.0) 01/09/22 12:42 Ur Specific Lohn 1.018 (1.001-1.030) 01/09/22 12:42 Urine Protein Trace [...] 1519 Signed By: <Electronically signed by Dharmesh Zavala DO> 01/09/22 1530 [facility] Work Phone: [phone] Evaluation note* Encounter Date Diagnosis Assessment Notes [...] in a week to re-evaluate the area. [facility] Other 10-21-2022 Evaluation note* Encounter Date Diagnosis Assessment Notes Treatment Notes Treatment Clinical Notes Dec, Lower extremity edema (ICD-10 - R60.0) [facility] Other 10-13-2022 NoteCONSULTATION CONSULTATION DATE: 12/17/2021 HISTORY [...] next refill, we will change it to [place] 5/325 daily p.r.n. and the patient is encouraged to increase oral fluids and to continue with his stool softener on a daily basis. Heat education was discussed with the patient, as far as frequency and consistency. We will see him in three months' time, unless otherwise indicated, and all questions answered today.[facility] [id number] NoteCONSULTATION CONSULTATION DATE: 11/12/2021 HISTORY OF PRESENT [...] followed up in the office post procedure.[facility] [id number] Evaluation note* Encounter Date Diagnosis Assessment Notes [...] manage his swelling better. He voiced understanding. [facility] Other 07-25-2022 Evaluation note* Encounter Date Diagnosis Assessment Notes Treatment Notes Treatment Clinical Notes Sep, CHF (congestive heart failure) (ICD-10 - I50.9) [facility] Other 07-08-2022 Evaluation note* Encounter Date Diagnosis Assessment Notes Treatment Notes Treatment Clinical Notes Sep, CHF (congestive heart failure) (ICD-10 - I50.9) Patient is to hold bumex until re-evaluated in one month per Dr. Feliciano Ga. [facility] Other 07-07-2022 Evaluation note* Encounter Date Diagnosis Assessment Notes Treatment Notes Treatment Clinical Notes Sep, Atrial fibrillation (ICD-10 - I48.91) [facility] Other 07-01-2022 Evaluation note* Encounter Date Diagnosis Assessment Notes Treatment Notes Treatment Clinical Notes Sep, Insomnia (ICD-10 - G47.00) Sep, Gout (ICD-10 - M10.9) [facility] Other 06-27-2022 Evaluation note* Encounter Date Diagnosis [...] is in AF today. He did see tank hoop bender a few weeks ago and is stable [...] continue with current medications at this time. [facility] Other 06-09-2022 NoteCONSULTATION CONSULTATION DATE: 08/13/2021 This [...] in three months' time unless otherwise indicated. [facility] Signed and Approved by: MONSERRAT RODARTE . 08/20/2021 16:02:00[facility]03-21-2022 Evaluation note* Encounter Date Diagnosis Assessment Notes Treatment Notes Treatment Clinical Notes May, Insomnia (ICD-10 - G47.00) [facility] Other 01-05-2022 Evaluation note* Encounter Date Diagnosis Assessment Notes Treatment Notes Treatment Clinical Notes Mar, Atrial fibrillation (ICD-10 - I48.91) [facility] Other 12-30-2021 Evaluation note* Encounter Date Diagnosis Assessment Notes Treatment Notes Treatment Clinical Notes Feb, Insomnia (ICD-10 - G47.00) [facility] Other 11-15-2021 Evaluation note* Encounter Date Diagnosis [...] Screening for prostate cancer (ICD-10 - Z12.5) [facility] Other 03-19-2007 History general Narrative - Reported* Type Description Date Medical History EKG 05-23-2006 Medical History MRI Lumbar Spine 01-13-11; [facility] Medical History 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 Medical History 01/22/14-stress test and echocar diogram at [facility] Medical History follows with urology Medical History 05/11/16 Stress Test Medical History f/u with Dr Mcintyre for CHF, A-F ib Medical History Dr Kosta phillips mgmt- back spondyl olysis Medical History MUGA Stress test 06/14/16 [facility] Medical History 05/10/2018 Colonscop y due [...] History LTKA- Dr. Lezama 11/05/19 Hospitalization History [facility] CH[place], A-Fib 04/2016 [employer] 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 Lezama 11/05/19 Hospitalization History [facility]- CHF, A-Fib 04/2016 [employer] Other Consult note Author Vikas Mane [facility] January 10, 2022 12:35pm Note Date/Time January 10, 2022 9 :20am [facility] [address] [place] [address] Neurology Consult Note Signed Patient: Irineo Wallis Jr MR# : [id number] : 1940 Acct:[id number] Age/Sex: 81 / M Adm Date: 2 Loc: Room: [address] [place] [address] Type: ADM IN Attending Dr: Dharmesh Zavala DO Copies to: DO Feliciano Pollock DO Kristopher L Lindbloom, DO~ HPI Consult Date: 01/10/22 Transactional Attorney: Vikas Mane DO [facility] Vaccinated for COVID-19?: Yes [...] Esa Cardoso M.D.01/09/2022 1:11 PM Dictation Location: [facility]--[address] 01/09/22 09:47 IMPRESSION: No fracture. Thoracic spondylosis. Moderate right and small left pleural effusions. Impression dictated by: Esa Cardoso M.D.01/09/2022 1:06 PM Dictation Location: [facility]--12 Chest X-Ray 01/09/22 09:48 IMPRESSION: Developing groundglass parenchymal densities greater on the RIGHT. Consider pulmonary edema. Impression dictated by: Esa Cardoso M.D.01/09/2022 10:11 AM Dictation Location: [facility]-03 Renal Ultrasound 01/10/22 05:00 IMPRESSION: No hydronephrosis. Impression dictated by: Esa Cardoso M.D.01/10/2022 9:07 AM Dictation Location: [place] [address] Assessment/Plan (1) Falls frequently: Assessment/Problem Details: HPI: [...] rapidly alternating movements. No limb dysmetria with cyofpx-ljfu-tlidub testing. DATA REVIEW: MRI lumbar spine from [...] <Electronically signed by Vikas Mane DO> 01/10/22 1237 [facility] Work Phone: Consult note Author Marv Drew [facility] January 10, 2022 11:32am Note Date/Time January 10, 2022 1 1:32am [facility] [address] [place] [address] Cardiology Consult Note Signed Patient: Irineo Wallis Jr MR# : [id number] : 1940 Acct:[id number] Age/Sex: 81 / M Adm Date: 2 Loc: Room: [address] [place] [address] Type: ADM IN Attending Dr: Dharmesh Zavala [...] He has adequate social support at home. [facility] Vaccinated for COVID-19?: Yes [...] x10E3/uL Lymph # (Auto) 1.0 (1.00-4.8) x10E3/uL Preble # (Auto) 1.0 H (0.0-0.8) x10E3/uL Eos [...] Bradycardia, unspecified Documented By: Marv Drew MD, [facility] 2 1125 Signed By: <Electronically signed by [facility] Marv Drew> 01/10/22 1132 [facility] Work Phone: Consult note Author Victor Manuel Reynolds [facility] January 13, 2022 10:45am Note Date/Time January 13, 2022 1 0:45am [facility] [address] [place] [address] Infect. Disease Consult Note Signed Patient: Irineo Wallis Jr MR# : [id number] : 1940 Acct:[id number] Age/Sex: 81 / M Adm Date: 2 Loc: Room: [address] [place] [address] Type: ADM IN Attending Dr: Raji Ennis [...] negative unless noted below or in HPI [facility] Attestation Statement: The following information was validated [...] Bisacodyl (Bisacodyl 10 Mg Supp.Rect) 10 mg MO DAILY PRN PRN Reason: Constipation Stop: 01/09/23 14:40 Bisacodyl (Bisacodyl 5 Mg Tablet.Dr) 10 mg PO DAILY PRN PRN Reason: Constipation Stop: 01/09/23 14:40 Last Admin: 01/12/22 08:22 Dose: 10 mg Bumetanide (Bumetanide 1 Mg/4 Ml Vial) 1 mg IV-PUSH BID@0800,1600 [facility] Stop: 01/13/23 07:59 Last Admin: 01/13/22 09:43 Dose: 1 mg Docusate Sodium (Docusate 100 Mg Capsule) 100 mg PO BID [facility] Stop: 01/09/23 20:59 Last Admin: 01/13/22 09:43 Dose: 100 mg Fluticasone Propionate (Fluticasone Propionate Butte 120 Butte/16 Gm Bottle) 1 spray NARES-BOTH QHS PRN PRN Reason: Nasal Congestion Stop: 01/09/23 15:16 Magnesium Sulfate (Magnesium Sulf 2gm-*Swfi*) 2 gm in 50 mls @ 25 mls/hr IV DAILY PRN PRN Reason: Magnesium Level < 1.5 Stop: 01/09/23 14:40 Cefepime HCl (Maxipime) 2 gm in 50 mls @ 100 mls/hr IV Q12H [facility] Last Admin: 01/13/22 03:07 Dose: 100 mls/hr Levothyroxine Sodium (Levothyroxine 150 Mcg Tablet) 150 mcg PO DAILY@0630 [facility] Stop: 01/10/23 06:29 Last Admin: 01/13/22 06:26 Dose: 150 mcg Magnesium Hydroxide (Magnesium Hydroxide Susp 30 Ml Udc) 30 ml PO BID PRN PRN Reason: Constipation Stop: 01/09/23 14:40 Magnesium Oxide (Magnesium Oxide 400 Mg Tablet) 400 mg PO DAILY [facility] Stop: 01/10/23 08:59 Last Admin: 01/13/22 09:43 Dose: 400 mg Nitroglycerin (Nitroglycerin 0.4 Mg Tab.Subl) 0.4 mg SUBLINGUAL Q5MIN.X3 PRN PRN Reason: Chest Pain Stop: 01/09/23 14:40 Pom Eszopiclone 3 Mg (Tablet) 3 mg PO HS [facility] Stop: 01/11/23 21:59 Last Admin: 01/12/22 22:51 Dose: 3 mg Nystatin (Nystatin 100,000 Unit/Gram Powder 15 Gm Bottle) 1 applic TOPICAL TID [facility] Stop: 01/09/23 21:59 Last Admin: 01/13/22 09:43 [...] 20 Meq Tab.Er.Prt) 20 meq PO QPM [facility] Stop: 01/09/23 20:59 Last Admin: 01/12/22 22:51 Dose: 20 meq Sodium Chloride (Sodium Chloride 0.9 % 10 Ml Syringe) 0 ml IV-PUSH PRN PRN PRN Reason: Flush Stop: 01/09/23 09:37 Last Admin: 01/10/22 23:31 Dose: 10 ml Sodium Chloride (Sodium Chloride 0.9 % 10 Ml Syringe) 0 ml IV-PUSH QSHIFT [facility] Stop: 01/09/23 21:59 Last Admin: 01/13/22 06:26 [...] signed by MD Victor Manuel Reynolds> 01/13/22 1048 [facility] Work Phone: Evaluation noteNo assessment information available [facility] Work Phone: Evaluation noteNo InformationN[facility] Other Evaluation note* Diagnosis Onset Date Resolution Status Acute decompensated heart failure acute Acute exacerbation of chronic low back pain acute Elevated troponin acute Fall acute Hypoxemia acute [facility] Work Phone: Evaluation note* Diagnosis Onset Date Resolution Status Acute decompensated heart failure acute Acute exacerbation of chronic low back pain acute [id number] acute Acute respiratory failure with hypoxia acute [...] apnea acute Atrial fibrillation chronic Hypertension chronic [facility] Work Phone: History and physical note Author Dharmesh Zavala [facility] January 09, 2022 3:30pm Note Date/Time January 09, 2022 3 :30pm [facility] [address] [place] [address] Hospitalist H&P Signed Patient: Irineo Wallis Jr MR# : [id number] : 1940 Acct:[id number] Age/Sex: 81 / M Adm Date: 2 Loc: Room: [address] [place] [address] Type: ADM IN Attending Dr: Dharmesh Zavala [...] that he had seen a urologist in [place] recently. Patient used to be on a number of prostate medications but apparently they were stopped because they are not doing what they are supposed to be doing. The patient andhis daughter have a discussion about what urology was doing for the situation without finding a specific answer. Patient also describes that he has been veryconstipated lately and takes an unspecified evzj-xlu-vzooysm generic stool softener. His daughter does point [...] radiofrequency ablations by pain management doctor in [place]. Review of Systems Review of Systems Review of systems: 10 systems are reviewed and are negative except as mentioned elsewhere in the documentation. [facility] Vaccinated for [facility]-19?: Yes [...] % (Auto) 13.5 % (.) 01/09/22 10:36 Preble % (Auto) 14.2 % (.) 01/09/22 10:36 Eos % (Auto) 0.1 % (.) 01/09/22 10:36 Baso % (Auto) 1.0 % (.) 01/09/22 10:36 Neut # (Auto) 4.3 x10E3/uL (1.8-7.7) 01/09/22 10:36 Lymph # (Auto) 0.8 x10E3/uL (1.00-4.8) L 01/09/22 10:36 Preble # (Auto) 0.9 x10E3/uL (0.0-0.8) H 01/09/22 [...] pH 5.5 (5.0-9.0) 01/09/22 12:42 Ur Specific Lohn 1.018 (1.001-1.030) 01/09/22 12:42 Urine Protein Trace [...] signed by Dharmesh Zavala, > 01/09/22 1530 [facility] Work Phone: history of Present illness Narrative* The patient states he has been generally stable since the last visit. Comorbid Illnesses: hypertension. * Symptoms: denies chest pain at rest, denies exertional chest pain, denies dyspnea, denies fatigue, stable exercise intolerance, denies palpitations, denies edema, denies orthopnea, denies dizziness and denies orthostatic dizziness. * Disease Monitoring: [facility] [employer] Work Phone: history of Present illness Narrative* The patient states he has been generally stable since the last visit. Comorbid Illnesses: hypertension. * Symptoms: denies chest pain at rest, denies exertional chest pain, denies dyspnea, denies fatigue, stable exercise intolerance, denies palpitations, denies edema, denies orthopnea, denies dizziness and denies orthostatic dizziness. * Disease Monitoring: [facility] [employer] Work Phone: history of Present illness Narrative* [...] is not doing well with his goals. [facility] [employer] Work Phone: history of Present illness Narrative* [...] is not doing well with his goals. -[facility] [facility] DO Work Phone: Hospital Discharge instructions Additional Instructions Shelter Facility to manage care: - Full code [...] unable to void, chou catheter removed on 01/16[facility] Work Phone: Progress note Author Dharmesh Zavala [facility] January 10, 2022 8:54pm Note Date/Time January 10, 2022 8 :54pm [facility] [address] [place] [address] Hospitalist Progress Note Signed Patient: Irineo Wallis Jr MR# : [id number] : 1940 Acct:[id number] Age/Sex: 81 / M Adm Date: 2 Loc: Room: [address] [place] [address] Type: ADM IN Attending Dr: Dharmesh Zavala DO Copies to: ~ Date of Service: 01/10/2022 Subjective Subjective Narrative: When I entered the room the patient tells me that he is getting a pain in the thighs on the top of his legs. He does mention that the people in [place] told me that was due to the [...] mg 01/09/22 14:41 Bisacodyl 10 Mg Supp.Rect MO 01/09/23 14:40 DAILY PRN Constipation Bisacodyl 10 mg 01/09/22 14:41 Bisacodyl 5 Mg Tablet.Dr PO 01/09/23 14:40 DAILY PRN Constipation Bumetanide 1 mg 01/09/22 15:30 01/10/22 14:42 Bumetanide 1 Mg/4 Ml Vial IV-PUSH 01/09/23 15:29 1 mg Q8H ANIBAL Administration Docusate Sodium 100 mg 01/09/22 21:00 01/10/22 08:58 Docusate 100 Mg Capsule PO 01/09/23 20:59 Not Given BID [facility] Fluticasone Propionate 1 spray 01/09/22 15:17 Fluticasone Propionate Butte 120 Butte/16 Gm Bottle NARES-BOTH 01/09/23 15:16 QHS PRN [...] 01/09/22 22:00 Eszopiclone PO 01/09/23 21:59 HS [facility] Nystatin 1 applic 01/09/22 22:00 01/10/22 14:42 [...] <Electronically signed by Dharmesh Zavala DO> 01/10/222053 [facility] Work Phone: Progress note Author Mani Dickens [facility] January 11, 2022 5:02pm Note Date/Time January 11, 2022 8 :55am [facility] [address] [place] [address] Neurology Progress Note Signed Patient: Irineo Wallis Jr MR# : [id number] : 1940 Acct:[id number] Age/Sex: 81 / M Adm Date: 2 Loc: Room: [address] [place] [address] Type: ADM IN Attending Dr: Raji Ennis [...] knee to all modalities. CEREBELLAR EXAM: * Bplyaa-py-auoc and alternating movements are intact and normal in bilateral upper extremities * Bnuw-ra-jpsl and alternating movements are intact and normal [...] Therapy Recommendations: OT Recommendations OT Recommended Discharge Shelter Facility Location OT Recommended Services at Physical Therapy,Occupational Therapy Discharge PT Recommendations PT Recommended Discharge Shelter Facility Location PT Recommended Services at Physical [...] the plan of care and confirmed the SPIRITS MODEL note The patient is an 81-year-old man [...] signed by MD Mani Dickens> 01/11/22 1702 [facility] Work Phone: Progress note Author W Be Mcintyre [facility] January 11, 2022 2:09pm Note Date/Time January 11, 2022 2 :09pm [facility] [address] [place] [address] Cardiology Progress Note Signed Patient: Irineo Wallis Jr MR# : [id number] : 1940 Acct:[id number] Age/Sex: 81 / M Adm Date: 2 Loc: Room: [address] [place] [address] Type: ADM IN Attending Dr: Raji Ennis [...] % (Auto) 73.8 Lymph % (Auto) 13.7 Preble % (Auto) 9.6 Eos % (Auto) 2.2 Baso % (Auto) 0.7 Neut # (Auto) 6.3 Lymph # (Auto) 1.2 Preble # (Auto) 0.8 Eos # (Auto) 0.2 [...] signed by Bhupinder Mcintyre DO> 01/11/22 1409 [facility] Work Phone: Progress note Author Raji Ennis [facility] January 11, 2022 5:04pm Note Date/Time January 11, 2022 5 :04pm [facility] [address] [place] [address] Hospitalist Progress Note Signed Patient: Irineo Wallis Jr MR# : [id number] : 1940 Acct:[id number] Age/Sex: 81 / M Adm Date: 2 Loc: 3T Room: [id number] Type: ADM IN Attending Dr: Raji Ennis [...] mg 01/09/22 14:41 Bisacodyl 10 Mg Supp.Rect MO 01/09/23 14:40 DAILY PRN Constipation Bisacodyl 10 [...] Propionate 1 spray 01/09/22 15:17 Fluticasone Propionate Butte 120 Butte/16 Gm Bottle NARES-BOTH 01/09/23 15:16 QHS PRN [...] 01/11/22 22:00 Tablet PO 01/11/23 21:59 HS [facility] Nystatin 1 applic 01/09/22 22:00 01/11/22 15:24 [...] prophylaxis Documented By: Raji Ennis MD 01/11/22 3456 Signed By: <Electronically signed by Raji Ennis MD> 01/11/22 5767 [facility] Work Phone: Progress note Author Mani Dickens [facility] January 12, 2022 4:10pm Note Date/Time January 12, 2022 8 :19am [facility] [address] [place] [address] Neurology Progress Note Signed Patient: Irineo Wallis Jr MR# : [id number] : 1940 Acct:[id number] Age/Sex: 81 / M Adm Date: 2 Loc: Room: [address] [place] [address] Type: ADM IN Attending Dr: Raji Ennis [...] extremities * Unable to test finger-nose or ahxm-bo-finh due to drowsiness REFLEX EXAM: * 03/10 [...] Therapy Recommendations: OT Recommendations OT Recommended Discharge Shelter Facility Location OT Recommended Services at Physical Therapy,Occupational Therapy Discharge PT Recommendations PT Recommended Discharge Shelter Facility Location PT Recommended Services at Physical [...] the plan of care and confirmed the SPIRITS MODEL note The patient is an 81-year-old man [...] signed by MD Mani Dickens> 01/12/22 1610 [facility] Work Phone: Progress note Author Raji Ennis [facility] January 12, 2022 4:38pm Note Date/Time January 12, 2022 4 :38pm [facility] [address] [place] [address] Hospitalist Progress Note Signed Patient: Irineo Wallis Jr MR# : [id number] : 1940 Acct:[id number] Age/Sex: 81 / M Adm Date: 2 Loc: Room: [address] [place] [address] Type: ADM IN Attending Dr: Raji Ennis [...] mg 01/09/22 14:41 Bisacodyl 10 Mg Supp.Rect MO 01/09/23 14:40 DAILY PRN Constipation Bisacodyl 10 [...] Propionate 1 spray 01/09/22 15:17 Fluticasone Propionate Butte 120 Butte/16 Gm Bottle NARES-BOTH 01/09/23 15:16 QHS PRN [...] Tablet PO 01/10/23 06:29 150 mcg DAILY@0630 [facility] Administration Magnesium Hydroxide 30 ml 01/09/22 14:41 [...] signed by Raji Ennis MD> 01/12/22 1638 [facility] Work Phone: Progress note Author W Be Mcintyre [facility] January 12, 2022 6:11pm Note Date/Time January 12, 2022 6 :11pm [facility] [address] [place] [address] Cardiology Progress Note Signed Patient: Irineo Wallis Jr MR# : [id number] : 1940 Acct:[id number] Age/Sex: 81 / M Adm Date: 2 Loc: Room: [id number] Type: ADM IN Attending Dr: Raji Ennis [...] % (Auto) 76.3 Lymph % (Auto) 12.2 Preble % (Auto) 9.1 Eos % (Auto) 1.9 Baso % (Auto) 0.5 Neut # (Auto) 7.7 Lymph # (Auto) 1.2 Preble # (Auto) 0.9 H Eos # (Auto) [...] 2.9 Globulin (PEP) 2.4 Albumin/Globulin (PEP) 1.2 Wzcsg-2-Sjzxtbwur 0.4 Hegvc-9-Atqayscxy 0.7 Beta Globulins 0.6 L Gamma Globulins 0.8 M-Franky Not observed PEP Note IgG 816 IgA 171 IgM 105 Serum Immunofixation 01/12/22 06:42 Corrected WBC Uncorrected WBC Count RBC Hgb Hct MCV MCH MCHC RDW Plt Count MPV Neut % (Auto) Lymph % (Auto) Preble % (Auto) Eos % (Auto) Baso % (Auto) Neut # (Auto) Lymph # (Auto) Preble # (Auto) Eos # (Auto) Baso # (Auto) Nucleated RBC % (auto) PHA Creatinine Clear Sodium Potassium Chloride Carbon Dioxide Anion Gap BUN Creatinine Est GFR ( Amer) Est GFR (Non-Af Amer) Glucose Calcium C-Reactive Prot, Quant 8.4 H Serum Total Protein Albumin (Send Out) Globulin (PEP) Albumin/Globulin (PEP) Iiisa-5-Lkhlpibzg Tqsao-0-Kbkqjhdwi Beta Globulins Gamma Globulins M-Franky PEP Note [...] signed by Bhupinder Mcintyre DO> 01/12/22 1811 [facility] Work Phone: Progress note Author Mani Dickens [facility] January 13, 2022 6:10pm Note Date/Time January 13, 2022 8 :13am [facility] [address] [place] [address] Neurology Progress Note Signed with Addenda Patient: Irineo Wallis Jr MR# : [id number] : 1940 Acct:[id number] Age/Sex: 81 / M Adm Date: 2 Loc: Room: [address] [place] [address] Type: ADM IN Attending Dr: Raji Ennis [...] extremities * Unable to test finger-nose or veig-ri-lmhn due to drowsiness REFLEX EXAM: * / throughout Objective Vital Signs Vital Signs: Vital [...] Therapy Recommendations: OT Recommendations OT Recommended Discharge Shelter Facility Location OT Recommended Services at Physical Therapy,Occupational Therapy Discharge PT Recommendations PT Recommended Discharge Shelter Facility Location PT Recommended Services at Physical [...] <Electronically signed by MEI Knight> 01/13/22 1520 [facility] Work Phone: Progress note Author Raji Ennis [facility] January 13, 2022 3:44pm Note Date/Time January 13, 2022 3 :27pm [facility] [address] [place] [address] Hospitalist Progress Note Signed Patient: Irineo Wallis Jr MR# : [id number] : 1940 Acct:[id number] Age/Sex: 81 / M Adm Date: 2 Loc: Room: [address] [place] [address] Type: ADM IN Attending Dr: Raji Ennis [...] mg 01/09/22 14:41 Bisacodyl 10 Mg Supp.Rect MO 01/09/23 14:40 DAILY PRN Constipation Bisacodyl 10 mg 01/09/22 14:41 01/12/22 08:22 Bisacodyl 5 Mg Tablet.Dr PO 01/09/23 14:40 10 mg DAILY PRN Administration Constipation Bumetanide 1 mg 01/13/22 16:00 Bumetanide 1 Mg Tablet PO 01/13/23 15:59 BID@0800,1600 [facility] Docusate Sodium 100 mg 01/09/22 21:00 01/13/22 09:43 Docusate 100 Mg Capsule PO 01/09/23 20:59 100 mg BID ANIBAL Administration Fluticasone Propionate 1 spray 01/09/22 15:17 Fluticasone Propionate Butte 120 Butte/16 Gm Bottle NARES-BOTH 01/09/23 15:16 QHS PRN [...] signed by Raji Ennis MD> 01/13/22 1544 [facility] Work Phone: Progress note Author Victor Manuel Reynolds [facility] January 14, 2022 9:39am Note Date/Time January 14, 2022 9:39am [facility] [address] [place] [address] Infect. Disease Progress Note Signed Patient: Irineo Wallis Jr MR# : [id number] : 1940 Acct:[id number] Age/Sex: 81 / M Adm Date: 2 Loc: Room: [address] [place] [address] Type: ADM IN Attending Dr: Raji Ennis [...] Appearance Clear Urine pH 5.5 Ur Specific Lohn 1.012 Urine Protein 30 H Urine Glucose [...] Bisacodyl (Bisacodyl 10 Mg Supp.Rect) 10 mg MO DAILY PRN PRN Reason: Constipation Stop: 01/09/23 14:40 Bisacodyl (Bisacodyl 5 Mg Tablet.Dr) 10 mg PO DAILY PRN PRN Reason: Constipation Stop: 01/09/23 14:40 Last Admin: 01/13/22 21:26 Dose: 10 mg Bumetanide (Bumetanide 1 Mg Tablet) 1 mg PO BID@0800,1600 [facility] Stop: 01/13/23 15:59 Docusate Sodium (Docusate 100 Mg Capsule) 100 mg PO BID ANIBAL Stop: 01/09/23 20:59 Last Admin: 01/14/22 08:03 Dose: 100 mg Fluticasone Propionate (Fluticasone Propionate Butte 120 Butte/16 Gm Bottle) 1 spray NARES-BOTH QHS PRN PRN Reason: Nasal Congestion Stop: 01/09/23 15:16 Magnesium Sulfate (Magnesium Sulf 2gm-*Swfi*) 2 gm in 50 mls @ 25 mls/hr IV DAILY PRN PRN Reason: Magnesium Level < 1.5 Stop: 01/09/23 14:40 Cefepime HCl (Maxipime) 2 gm in 50 mls @ 100 mls/hr IV Q12H [facility] Last Admin: 01/14/22 03:05 Dose: 100 mls/hr Vancomycin HCl 1.25 gm/ (Dextrose) 275 mls @ 183.333 mls/hr IV Q24H [facility] Stop: 01/13/23 18:59 Last Infusion: 01/13/22 21:17 Dose: Infused Levothyroxine Sodium (Levothyroxine 150 Mcg Tablet) 150 mcg PO DAILY@0630 [facility] Stop: 01/10/23 06:29 Last Admin: 01/14/22 05:54 Dose: 150 mcg Magnesium Hydroxide (Magnesium Hydroxide Susp 30 Ml Udc) 30 ml PO BID PRN PRN Reason: Constipation Stop: 01/09/23 14:40 Magnesium Oxide (Magnesium Oxide 400 Mg Tablet) 400 mg PO DAILY [facility] Stop: 01/10/23 08:59 Last Admin: 01/14/22 08:04 Dose: 400 mg Nitroglycerin (Nitroglycerin 0.4 Mg Tab.Subl) 0.4 mg SUBLINGUAL Q5MIN.X3 PRN PRN Reason: Chest Pain Stop: 01/09/23 14:40 Pom Eszopiclone 3 Mg (Tablet) 3 mg PO HS [facility] Stop: 01/11/23 21:59 Last Admin: 01/13/22 21:27 Dose: 3 mg Nystatin (Nystatin 100,000 Unit/Gram Powder 15 Gm Bottle) 1 applic TOPICAL TID [facility] Stop: 01/09/23 21:59 Last Admin: 01/14/22 08:04 [...] 20 Meq Tab.Er.Prt) 20 meq PO QPM [facility] Stop: 01/09/23 20:59 Last Admin: 01/13/22 21:26 Dose: 20 meq Sodium Chloride (Sodium Chloride 0.9 % 10 Ml Syringe) 0 ml IV-PUSH PRN PRN PRN Reason: Flush Stop: 01/09/23 09:37 Last Admin: 01/10/22 23:31 Dose: 10 ml Sodium Chloride (Sodium Chloride 0.9 % 10 Ml Syringe) 0 ml IV-PUSH QSHIFT [facility] Stop: 01/09/23 21:59 Last Admin: 01/14/22 05:54 [...] by MD Victor Manuel Reynolds> 01/14/22 0939 [facility] Work Phone: Progress note Author Raji Ennis [facility] January 14, 2022 5:43pm Note Date/Time January 14, 2022 5:43pm [facility] [address] [place] [address] Hospitalist Progress Note Signed Patient: Irineo Wallis Jr MR# : [id number] : 1940 Acct:[id number] Age/Sex: 81 / M Adm Date: 2 Loc: Room: [address] [place] [address] Type: ADM IN Attending Dr: Raji Ennis [...] mg 01/09/22 14:41 Bisacodyl 10 Mg Supp.Rect MO 01/09/23 14:40 DAILY PRN Constipation Bisacodyl 10 [...] Propionate 1 spray 01/09/22 15:17 Fluticasone Propionate Butte 120 Butte/16 Gm Bottle NARES-BOTH 01/09/23 15:16 QHS PRN [...] <Electronically signed by Raji Ennis MD> 01/14/221742 [facility] Work Phone: Progress note Author Victor Manuel Reynolds [facility] January 15, 2022 12:21pm Note Date/Time January 15, 2022 12:21pm [facility] [address] [place] [address] Infect. Disease Progress Note Signed Patient: Irineo Wallis Jr MR# : [id number] : 1940 Acct:[id number] Age/Sex: 81 / M Adm Date: 2 Loc: Room: [address] [place] [address] Type: ADM IN Attending Dr: Raji Ennis [...] 300 Mg Tablet) 300 mg PO DAILY [facility] Stop: 01/10/23 08:59 Last Admin: 01/15/22 08:46 Dose: 300 mg Apixaban (Apixaban 5 Mg Tablet) 5 mg PO BID [facility] Stop: 01/09/23 20:59 Last Admin: 01/15/22 08:46 Dose: 5 mg Atorvastatin Calcium (Atorvastatin 40 Mg Tablet) 40 mg PO QHS [facility] Stop: 01/09/23 21:59 Last Admin: 01/14/22 21:32 Dose: 40 mg Bisacodyl (Bisacodyl 10 Mg Supp.Rect) 10 mg MO DAILY PRN PRN Reason: Constipation Stop: 01/09/23 14:40 Bisacodyl (Bisacodyl 5 Mg Tablet.Dr) 10 mg PO DAILY PRN PRN Reason: Constipation Stop: 01/09/23 14:40 Last Admin: 01/14/22 19:57 Dose: 10 mg Bumetanide (Bumetanide 1 Mg Tablet) 1 mg PO DAILY@0800 [facility] Stop: 01/14/23 15:59 Last Admin: 01/15/22 08:46 Dose: 1 mg Docusate Sodium (Docusate 100 Mg Capsule) 100 mg PO BID [facility] Stop: 01/09/23 20:59 Last Admin: 01/15/22 08:46 Dose: 100 mg Fluticasone Propionate (Fluticasone Propionate Butte 120 Butte/16 Gm Bottle) 1 spray NARES-BOTH QHS PRN PRN Reason: Nasal Congestion Stop: 01/09/23 15:16 Magnesium Sulfate (Magnesium Sulf 2gm-*Swfi*) 2 gm in 50 mls @ 25 mls/hr IV DAILY PRN PRN Reason: Magnesium Level < 1.5 Stop: 01/09/23 14:40 Levothyroxine Sodium (Levothyroxine 150 Mcg Tablet) 150 mcg PO DAILY@0630 [facility] Stop: 01/10/23 06:29 Last Admin: 01/15/22 06:38 Dose: Not Given Magnesium Hydroxide (Magnesium Hydroxide Susp 30 Ml Udc) 30 ml PO BID PRN PRN Reason: Constipation Stop: 01/09/23 14:40 Magnesium Oxide (Magnesium Oxide 400 Mg Tablet) 400 mg PO DAILY [facility] Stop: 01/10/23 08:59 Last Admin: 01/15/22 08:46 Dose: 400 mg Nitroglycerin (Nitroglycerin 0.4 Mg Tab.Subl) 0.4 mg SUBLINGUAL Q5MIN.X3 PRN PRN Reason: Chest Pain Stop: 01/09/23 14:40 Pom Eszopiclone 3 Mg (Tablet) 3 mg PO HS [facility] Stop: 01/11/23 21:59 Last Admin: 01/14/22 21:32 Dose: 3 mg Nystatin (Nystatin 100,000 Unit/Gram Powder 15 Gm Bottle) 1 applic TOPICAL TID [facility] Stop: 01/09/23 21:59 Last Admin: 01/15/22 08:46 [...] 20 Meq Tab.Er.Prt) 20 meq PO QPM [facility] Stop: 01/09/23 20:59 Last Admin: 01/14/22 21:32 [...] signed by MD Victor Manuel Reynolds> 01/15/221220 [facility] Work Phone: Progress note Author Raji Ennis [facility] January 15, 2022 4:51pm Note Date/Time January 15, 2022 4:51pm [facility] [address] [place] [address] Hospitalist Progress Note Signed Patient: Irineo Wallis Jr MR# : [id number] : 1940 Acct:[id number] Age/Sex: 81 / M Adm Date: 2 Loc: Room: [address] [place] [address] Type: ADM IN Attending Dr: Raji Ennis [...] mg 01/09/22 14:41 Bisacodyl 10 Mg Supp.Rect MO 01/09/23 14:40 DAILY PRN Constipation Bisacodyl 10 [...] Propionate 1 spray 01/09/22 15:17 Fluticasone Propionate Butte 120 Butte/16 Gm Bottle NARES-BOTH 01/09/23 15:16 QHS PRN [...] signed by Raji Ennis MD> 01/15/22 1651 [facility] Work Phone: Summary Purpose Family History [...] July 2021. 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 He denies any palpitations or fast heartbeats. [...] Complaint and Reason for Visit Chief Complaint MEDICARE/formerly [facility] Chief Complaint E03.9 I10 I48.91 fall Reason for Visit Acute decompensated heart failure Acute exacerbation of chronic low back pain Elevated troponin Fall Hypoxemia Chief Complaint E03.9 I10 I48.91 fall Reason for Visit Acute decompensated heart failure Acute exacerbation of chronic low back pain [id number] Acute respiratory failure with hypoxia Altered mental [...] Acute exacerbation of chronic low back pain [id number] Acute respiratory failure with hypoxia Altered mental [...] Acute exacerbation of chronic low back pain [id number] Acute respiratory failure with hypoxia Altered mental [...] content) DATE CREATED AUTHOR 08/30/2017 Roman Gomez [facility] DATE CREATED AUTHOR AUTHOR'S ORGANIZ ATION 07/09/2022 [facility] DATE CREATED AUTHOR AUTHOR'S ORGANIZ ATION 07/09/2022 [employer] DATE CREATED AUTHOR AUTHOR'S ORGANIZ ATION 07/16/2022 [facility] DATE CREATED AUTHOR AUTHOR'S ORGANIZ ATION 09/17/2022 [facility] DATE CREATED AUTHOR AUTHOR'S ORGANIZ ATION 03/29/2023 [facility] REASON FOR VISIT (unrecogniz ed section and content) 6 month Follow uprefillRefil lsNeeds refillREVIEW LABSRefillClinical Acute Medicineblood pressure checkClinical Acute Illnessblood pressure checkClinicalScraped [facility]NO SHOWback/leg pain, Hosp/rehab >month agorefillsRefillsfollow up lumbar degenerationRefillsRefills3 month Follow upRefillsreview labsRefillsRefill Lunesta- bpk to send rxClinical3 month Follow up- lumbar DDD/med check Care Teams (unrecognized sec tion and content) Team Status: Active Member Role Status Dates Feliciano Ga DO Primary Care Provider Active Team Status: Inactive Member Role Status Dates Feliciano Ga DO Primary Care Provider, Attending Provi percy [...] Active Shy Sciarappa Other Provider Active Meme Wil , DO Other Provider Active Mani Dickens [...] Primary Care Provider Active Enedelia Gomez , RIKY Attending Provider Active Team Status: Active Member Role Status Dates Feliciano Ga , DO Primary Care Provider Active Feliciano Ga , DO [facility] Attending Provider Active Team Status: Inactive Member Role Status Dates Felicianoamadou Ga , DO Primary Care Provider Active Feliciano Spencers , DO [facility] Attending Provider Active Goals [...] BE BASED ON THE PRIMARY CLINICAL RECORDS. [facility]. provides no warranty or guarantee of the accuracy or completeness of information in this document.
[2023-04-18 09:36] VITALS: BP 156/94; PULSE 109; RESP 16; TEMP 36.3; O2SAT 98
[2023-04-18 10:19] VITALS: BP 162/100; PULSE 129; RESP 18; O2SAT 98
[2023-04-18 10:21] VITALS: BP 165/91; PULSE 121; RESP 18; O2SAT 99
[2023-04-18] MEDS: TRIAMCINOLONE ACETONIDE 40 MG/ML VIAL INJ (10:30)
[2023-04-18] MEDS: LIDOCAINE HCL 2% 400 MG/20 ML MDV 15 ML INJ (10:30)
[2023-04-18] MEDS: BUPIVACAINE HCL 0.25% PF 25 MG/10 ML VIAL INJ (10:30)
--- NOTE | 2023-04-18 10:38 | P.ON_ITS ---
Date of procedure: 04/18/23 Pre-op diagnosis: Lumbar spondylosis Post-op diagnosis: same as pre-op Procedure: Procedure: Bilateral L3-4, L4-5 radiofrequency ablation Medications: Bupivacaine 0.25% 6cc, lidocaine 2% 5cc, kenalog 80mg The patient was seen and examined in the preoperative holding area.? The site was marked.? Written informed consent was obtained and placed on the chart.? The patient was brought to the medical procedure unit and placed in the prone position.? A timeout was completed verifying correct patient, procedure, positioning, and special requirements.? The skin overlying the target points, the designated medial branch, were prepped and draped in the usual sterile fashion.? The target point was achieved with a 20-gauge 15 cm with a 10 mm curved active tip radiofrequency cannula under direct fluoroscopic visualization.? The needle was inserted at level L3 on the right side. Needle tip position was confirmed with lateral fluoroscopic position.? Motor stimulation was carried out at 2 Hz up to 5 volts with the absence of extremity activity.? This was repeated at level L4, 5 on right side.?? Sensory stimulation was carried out.? Concordant pain was realized at the above- mentioned sites.? Then radiofrequency lesioning was carried out times 90 seconds at 80 degrees times 2 lesions at each level.? The radiofrequency probe was removed prior to cannula removal.? The above-mentioned injectate was placed in 1 mL increments.? The needle was removed. The same procedure, with the same steps, was then completed on the left side at the same levels. Insertion sites were covered.? The patient was taken to the postoperative recovery area and monitored for an appropriate length of time before being found suitable for discharge in the company of a responsible adult. Anesthesia: Local Surgeon: Diana Price Pathology: none sent Condition: stable Disposition: no change
== END 2023-04-18 10:43 | disposition home or self-care (01) ==
PROVIDERS: Visit Provider Anesthesiology
DX: M47.816 Spondylosis without myelopathy or radiculopathy, lumbar region (principal)
CPT/HCPCS: 64635; 64636; J0665; J3301

== ENCOUNTER 2023-05-18 08:49 | Outpatient (OUT) | payer MEDICARE, BC, SELFPAY ==
--- OUTSIDE RECORDS SUMMARY | 2023-05-18 09:11 | XMS_ITS | CCD ---
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 Name Role Phone Rice Dontrell W Unavailable Unavailable Rice, Dontrell W Unavailable Unavailable Rice, Dontrell W Unavailable Unavailable NONE, XXXX Unavailable Unavailable Feliciano Ga Unavailable Unavailable Unavailable Feliciano Ga Unavailable DO Feliciano Ga Primary Care Provider [phone] TIFFANY Rodarte-Severiano Malone Attending Provider DO Feliciano Ga Attending Provider [phone] DO Feliciano Ga Primary Care Provider DO Feliciano Ga Attending Provider MD Victor Manuel Paiz Emergency Provider DO Dharmesh Zavala Admit Provider DO Dharmesh Zavala Attending Provider Shy Mcdonough Other Provider Unavailable DO Meme De La Torre Other Provider MD Mani Dickens Other Provider DO Matheus Rizvi Other Provider [phone] Antonia ANP- Hoa Other Provider DO Vikas Mane Other Provider RIKY Degroot Other Provider MD Raji Ennis Attending Provider [phone] MD Victor Manuel Reynolds Other Provider RIKY Mix Attending Provider Kuns, DO Feliciano Myers Attending Provider Kuns, DO Feliciano Primary Care Provider Kuns, DO Feliciano Myers Attending Provider [phone] Kuns, Dr. Feliciano Parker Primary Care Unavaila cb Gomez, Dane Enedeliadano San Attending Rula Gomez, Dane San Referring Unavai labfrederic Ga, Dr. Feliciano [...] Dr. Feliciano Parker Primary Care Unavaila ble KOTSA ., DR TROY Haddad Admitting Unavailable BRAMBILA ., DR TROY Haddad Consulting Unavailable BRAMBILA ., DR TROY Haddad Attending Unavailable HARMEET, DR WIGGINS Primary Care Unavailable BRAMBILA ., DR TROY Haddad Admitting Unavailable BRAMBILA ., DR TROY Haddad Attending Unavailable RODARTE ., MONSERRAT Consulting Unavailable HARMEET, DR WHITTINGTON Primary Care Unavailable BRAMBILA ., DR TROY Haddad Admitting Unavailable RBAMBILA ., DR TROY Haddad Consulting Unavailable BRAMBILA ., DR TROY Haddad Attending Unavailable KUNCatie, DR WHITTINGTON Primary Care Unavailable RODARTE ., MONSERRAT Consulting Unavailable HARMEET, DR WHITTINGTON Consulting Unavailable BRAMBILA ., DR TROY Haddad Admitting Unavailable BRAMBILA ., DR TROY Haddad Consulting Unavailable BRAMBILA ., DR TROY Haddad Attending Unavailable KUNCatie, DR WHITTINGTON Primary Care Unavailable HARMEET, DR WHITTINGTON Consulting Unavailable HALKER ., DOMINIC Attending Unavailable HALKER ., DOMINIC Admitting Unavailable KUNCatie, DR WHITTINGTON Primary Care Unavailable KUNCatie, DR WHITTINGTON Primary Care Unavailable BRAMBILA ., DR TROY Haddad Admitting Unavailable BRAMBILA ., DR TROY Haddad Attending Unavailable RODARTE ., MONSERRAT Consulting Unavailable KUNCatie, DR WHITTINGTON Primary Care Unavailable BRAMBILA ., DR TROY Haddad Attending Unavailable BRAMBILA ., DR TROY Haddad Admitting Unavailable BRAMBILA ., DR TROY Haddad Admitting Unavailable KUNCatie, DR WHITTINGTON Primary Care Unavailable BRAMBILA ., DR TROY Haddad Attending Unavailable RODARTE ., MONSERRAT Consulting Unavailable KUNS, DR WHITTINGTON Consulting Unavailable BRAMBILA ., DR TROY Haddad Admitting Unavailable BRAMBILA ., DR TROY Haddad Attending Unavailable RODARTE ., MONSERRAT Consulting Unavailable HARMEET, DR WHITTINGTON Primary Care Unavailable TEQUILA, EDILMA Attending Unavailable TEQUILA, EDILMA Admitting Unavailable RONALD ISRAEL Consulting Unavailable HARMEET, DR WIGGINS Primary Care Unavailable EDILMA MANDEL Consulting Unavailable BRAMBILA ., DR TROY Haddad Admitting Unavailable BRAMBILA ., DR TROY Haddad Consulting Unavailable BRAMBILA ., DR TROY Haddad Attending Unavailable KUNS, DR WHITTINGTON Primary Care Unavailable LAKSHMIPATHY ., NARENDRANATH Admitting Nichelle vailable LAKSHMIPATHY ., NARENDRANATH Consulting Nichelle vailable HARMEET, DR WHTITINGTON Primary Care Unavailable LAKSHMIPATHY ., NARMAMIATH Attending Nichelle vailable HALKER ., DOMINIC Consulting Unavailable BRAMBILA ., DR TROY Haddad Admitting Unavailable BRAMBILA ., DR TROY Haddad Attending Unavailable RODARTE ., MONSERRAT Consulting Unavailable HARMEET, DR WIGGINS Primary Care Unavailable Harmeet, DO Wiggins Primary Care Provider [phone] Kuns, DO Wiggins Attending Provider Kuns, Feliciano Primary Care Unavailable Kuns, Feliciano P Admitting Unavailable KunsFeliciano P Attending Unavailable Kuns, Feliciano Primary Care Unavailable Enedelia Mix Admitting Unavailable Enedelia Mix Attending Unavailable KunFeliciano haddad Attending Unavailable Kuncatie, Feliciano Admitting Unavailable Kuncatie, Feliciano Primary Care Unavailable Kuns, Feliciano Primary Care Unavailable Raymon, Raji Attending Unavailable Sciarappandrés Shy Consulting Unavailable Sailaja Zavalaopher Admitting Unavailabl [...] Ga Attending Unavailable Feliciano Ga Admitting Unavailable Giedraitis , Andrius uHbbard Attending Unavailable Giedraitis MD, Andrius Vytautbubba Attending Unavailable Giedraitis MD, Andrius Vytautas Attending Unavailable Giedraitis MD, Andrius Vytautbubba Attending Unavailable Allergies Allergy Classification Reported Allergen(s) Allergy Type Date of Onset Reaction(s) Facility (20 sources) fentaNYL; Translations: [fentaNYL] Drug Allergy 11-09-19 AOF, loopy , Dizziness [facility] Repository (20 sources) indomethacin; Translations: [Indocin] Drug Allergy Other [facility] Repository (20 sources) penicillin; Translations: [penicillin] Drug Allergy anaphylaxis [facility] Repository (1 source) Duragesic-25; Translations: [Duragesic-25] Propensity to adverse reactions (disorder) [facility] Repository (1 source) FentaNYL Matrix; Translations: [FentaNYL Matrix] Propensity to adverse reactions (disorder) AOF [facility] Repository (20 sources) fentaNYL; Translations: [Duragesic-75 PT72] Drug Allergy Dizziness, Nausea [facility] [employer] 250 DO Work Phone: (20 sources) Penicillins; Translations: [Penicillins] Allergy to drug (finding) 11-09-19 20 Other, Weakness [facility] (20 sources) zolpidem; Translations: [Ambien] Drug Allergy memory loss [facility] [employer] 250 DO Work Phone: (20 sources) Indomethacin Drug Allergy 11-09-19 20 Unknown, Dizziness [facility] (20 sources) Duragesic-75 Drug allergy nausea Mavin Other (8 sources) zolpidem; Translations: [zolpidem] Drug Allergy 12-25-19 Confusion [facility] (1 source) fentaNYL Drug Allergy [facility] Repository (2 sources) Penicillins Drug allergy (disorder) 07-26-19 [facility] Repository (1 source) zolpidem Drug Allergy [facility] Repository (1 source) Indomethacin Drug Allergy 01-10-20 [facility] Repository (1 source) Penicillins Drug allergy (disorder) 01-10-20 [facility] Repository Medications Current Medications Medication Drug Class(es) [...] 06, 2019 9:42am take [address] [facility] every six hours Tylenol 325 MG 1 [...] 30-40mmhg size xs. 5 gvaris, [id number], [place] [id number] Sep, Active Start: 09-28-[address] ockings 30-40 mmhg as directed knee high as directed 2 pair Sep, Active docusate sodium 100 mg oral capsule (20 sources) Start: 11-06-2019 End: 01-04-2020 take 1 capsule by mouth twice daily Docusate Sodium (Dok) 100 mg Capsule Active 100 MG PO Twice daily 60 January 04, 2020 12:00am take 1 capsule by mo [facility] every twenty-four hours Colace 100 MG [...] 150 mcg Tablet Active 150 MCG PO DAILY@30 January 04, 2020 12:00am Start: 10-17-2017 Synthroid [...] (13 sources) Polyene Antifungal Start: 02-09-2022 Nystatin [id number] UNIT/GM 1 application Externally Twice a day [...] by mouth every six hours Hydrocodone-Acetami nophen ([place]) 5-325 mg tablet Discontinued 1 TAB PO Q6H November 06, 2019 November 06, 2019 9:42am Start: 11-06-2019 End: 11-06-2019 take 1 tablet by mouth every six hours Hydrocodone-Acetaminophen ([place]) 5-325 mg tablet Discontinued 1 TAB PO Q6H November 06, 2019 November 06, 2019 8:42am Start: 11-06-2019 End: 11-06-2019 take 1 tablet by mouth every six hours Hydrocodone-Acetaminophen ([place]) 5-325 mg tablet Discontinued 1 TAB PO Q6H November 06, 2019 November 06, 2019 8:42am Start: 11-06-2019 End: 11-06-2019 take 1 tablet by mouth every six hours Hydrocodone-Acetaminophen ([place]) 5-325 mg tablet Discontinued 1 TAB PO Q6H November 06, 2019 November 06, 2019 8:42am Start: 11-06-2019 End: 11-06-2019 take 1 tablet by mouth every six hours Hydrocodone-Acetaminophen ([place]) 5-325 mg tablet Discontinued 1 TAB PO Q6H November 06, 2019 November 06, 2019 8:42am Start: 11-06-2019 End: 11-06-2019 take 1 tablet by mouth every six hours Hydrocodone-Acetaminophen ([place]) 5-325 mg tablet Discontinued 1 TAB PO Q6H November 06, 2019 November 06, 2019 9:42am Start: 11-06-2019 End: 11-06-2019 take 1 tablet by mouth every six hours Hydrocodone-Acetaminophen ([place]) 5-325 mg tablet Discontinued 1 TAB PO [...] 12:00am January 09, 2022 2:11pm Lactulose Not-Steve armstrong magnesium oxide 400 mg oral tablet [...] [Coronary atherosclerosis of unspecified type of vessel, [place] or graft] Chronic Disorders of lipid metabolism [...] 01-09-2022 Unclassified (1 source) Other specified dorsopathies, zkuihozp-bqoplft-yxje l region; Translations: [Other specified dorsopathies, yrpmxgwh-lpkhuhu-hncz l region] Onset: 09-28-2021 Urinary tract infections [...] 09-08-2022 ALT [Catalytic activity/Vol] 31 U/L 7-52 [facility] Albumin [Mass/volume] in Ser um or Plasma by Bromocresol green (BCG) dye binding methoOrdered By: Feliciano Ga on 09-08-2022 Albumin BCG dye [Mass/Vol] 4.1 g/dL 3.5-5.7 [facility] Alkaline phosphatase [Enzyma tic activity/volume] in Serum or PlasmaOrdered By: Feliciano Ga on 09-08-2022 ALP [Catalytic activity/Vol] 124 U/L 34-104 [facility] Aspartate aminotransferase [ Enzymatic activity/volume] in Serum or PlasmaOrdered By: Feliciano Ga on 09-08-2022 AST [Catalytic activity/Vol] 47 U/L 13-39 [facility] B-Type Natriuretic Peptideon 09-08-2022 Natriuretic peptide B (Bld) [Mass/Vol] 123.0 pg/mL High 5-100 [facility] Comment on above: Result Comment: PERF ORMED BY: [place] [id number] PATHOLOGIST [employer] JAYY SANTA M.D. Performed By: #### C OVID-19 MOSES CREWSEG #### [address] Basophils Auto (Bld) [#/Vol] Ordered By: Feliciano Ga on 09-08-2022 Basophils (Bld) [#/Vol] 0.0 10*3/uL 0.0-0.2 [facility] Basophils/100 WBC Auto (Bld) Ordered By: Feliciano Ga on 09-08-2022 Basophils/100 WBC (Bld) 1.0 % . [facility] Bilirubin.total [Mass/volume ] in Serum or PlasmaOrdered By: Feliciano Ga on 09-08-2022 Bilirubin [Mass/Vol] 0.7 mg/dL 0.3-1.0 [facility] Calcium [Mass/volume] in Ser um or PlasmaOrdered By: Feliciano Ga on 09-08-2022 Calcium [Mass/Vol] 9.5 mg/dL 8.6-10.3 [facility] Carbon dioxide, total [Moles /volume] in Serum or PlasmaOrdered By: Feliciano Ga on 09-08-2022 CO2 [Moles/Vol] 30.7 mmol/L 21.0-31.0 [facility] Chloride [Moles/volume] in S sandor or PlasmaOrdered By: Feliciano Ga on 09-08-2022 Chloride [Moles/Vol] 107 mmol/L 98-107 [facility] Cholesterol [Mass/volume] in Serum or PlasmaOrdered By: Feliciano Ga on 09-08-2022 Cholesterol [Mass/Vol] 124 mg/dL 140-200 [facility] Comment on above: Chol less than 200 m g/dl low riskChol 201-239 mg/dl borderline riskChol 240 mg/dl and greater high risk Cholesterol in LDL Calc [Mas s/Vol]Ordered By: Feliciano Ga on 09-08-2022 Cholesterol in LDL [Mass/Vol] 44 mg/dL 0-100 [facility] Comment on above: LDL ATP III CLASSIFI CATIONLDL less than 100 mg/dL OptimalLDL 100-129 mg/dL Near or above optimalLDL 130-159 mg/dL Borderline highLDL 160-189 mg/dL HighLDL greater than 189 mg/dL Very high Cholesterol in VLDL Calc [Ma ss/Vol]Ordered By: Feliciano Ga on 09-08-2022 Cholesterol in VLDL [Mass/Vol] 13 mg/dL [facility] Complete Blood Count Auto Di ffon 09-08-2022 Basophils (Bld) [#/Vol] 0.0 10*3/uL Normal 0.0-0.2 [facility] Comment on above: Order Comment: Reaso n for Exam Hyperlipidemia Result Comment: PERF ORMED BY: [place] [id number] PATHOLOGIST [employer] JAYY SANTA M.D. Performed By: #### C OVID-19 MARS, SOFIANEG #### [facility] [address] [place] [address] [place] Basophils/100 WBC (Bld) 1.0 % Normal . [facility] Comment on above: Order Comment: Reaso n for Exam Hyperlipidemia Performed By: #### C OVID-19 MARS, SOFIANEG #### [facility] [address] [place] [id number] [place] Eosinophils (Bld) [#/Vol] 0.8 10*3/uL High 0.0-0.45 [facility] Comment on above: Order Comment: Reaso n for Exam Hyperlipidemia Performed By: #### C OVID-19 MARS, SOFIANEG #### [facility] [address] [place] [address] [place] Eosinophils/100 WBC (Bld) 16.6 % Normal . [facility] Comment on above: Order Comment: Reaso n for Exam Hyperlipidemia Performed By: #### C OVID-19 MARS, SOFIANEG #### [facility] [address] [place] [address] Erythrocyte distribution width (RBC) [Ratio] 14.9 % High 12.0-14.8 [facility] Comment on above: Order Comment: Reaso n for Exam Hyperlipidemia Performed By: #### C OVID-19 MARS, SOFIANEG #### [facility] [address] [place] [address] Hematocrit (Bld) [Volume fraction] 37.1 % Low 38.8-50.0 [facility] Comment on above: Order Comment: Reaso n for Exam Hyperlipidemia Performed By: #### C OVID-19 MARS, SOFIANEG #### [facility] [address] [place] [address] Hemoglobin (Bld) [Mass/Vol] 12.5 g/dL Low 13.0-17.0 [facility] Comment on above: Order Comment: Reaso n for Exam Hyperlipidemia Performed By: #### C OVID-19 MARS, SOFIANEG #### [facility] [address] [place] [address] [place] Lymphocytes (Bld) [#/Vol] 1.3 10*3/uL Normal 1.00-4.8 [facility] Comment on above: Order Comment: Reaso n for Exam Hyperlipidemia Performed By: #### C OVID-19 MARS, SOFIANEG #### [facility] [address] [place] [address] [place] Lymphocytes/100 WBC (Bld) 27.0 % Normal . [facility] Comment on above: Order Comment: Reaso n for Exam Hyperlipidemia Performed By: #### C OVID-19 MARS, SOFIANEG #### [facility] [address] MCH (RBC) [Entitic mass] 33.5 pg Normal 27.5-35.2 [facility] Comment on above: Order Comment: Reaso n for Exam Hyperlipidemia Performed By: #### C OVID-19 MARS, SOFIANEG #### [facility] [address] [place] [address] MCV (RBC) [Entitic vol] 99.7 fL Normal 83.5-101 [facility] Comment on above: Order Comment: Reaso n for Exam Hyperlipidemia Performed By: #### C OVID-19 MARS, SOFIANEG #### [facility] [address] [place] [address] Mean Corpuscular HGB Conc 33.6 g/dL Normal 32.5-35.6 [facility] Comment on above: Order Comment: Reaso n for Exam Hyperlipidemia Performed By: #### C OVID-19 MARS, SOFIANEG #### [facility] [address] [place] [address] [place] Monocytes (Bld) [#/Vol] 0.3 10*3/uL Normal 0.0-0.8 [facility] Comment on above: Order Comment: Reaso n for Exam Hyperlipidemia Performed By: #### C OVID-19 MARS, SOFIANEG #### [facility] [address] [place] [address] [place] Monocytes/100 WBC (Bld) 7.2 % Normal . [facility] Comment on above: Order Comment: Reaso n for Exam Hyperlipidemia Performed By: #### C OVID-19 MARS, SOFIANEG #### [facility] [address] [place] [address] [place] Neutrophils (Bld) [#/Vol] 2.2 10*3/uL Normal 1.8-7.7 [facility] Comment on above: Order Comment: Reaso n for Exam Hyperlipidemia Performed By: #### C OVID-19 MARS, SOFIANEG #### [facility] [address] [place] [address] [place] Neutrophils/100 WBC (Bld) 48.2 % Normal . [facility] Comment on above: Order Comment: Reaso n for Exam Hyperlipidemia Performed By: #### C OVID-19 MARS, SOFIANEG #### [facility] [address] [place] [address] NRBC% 0.2 /100{WBC} Normal 0-0.5 [facility] Comment on above: Order Comment: Reaso n for Exam Hyperlipidemia Performed By: #### C OVID-19 MARS, SOFIANEG #### [facility] [address] [place] [address] Platelet mean volume (Bld) [Entitic vol] 8.8 fL Normal 6.6-10.1 [facility] Comment on above: Order Comment: Reaso n for Exam Hyperlipidemia Performed By: #### C OVID-19 MARS, SOFIANEG #### [address] Platelets (Bld) [#/Vol] 155 10*3/uL Normal 150-450 [facility] Comment on above: Order Comment: Reaso n for Exam Hyperlipidemia Performed By: #### C OVID-19 MARS, SOFIANEG #### [facility] [address] [place] [address] RBC (Bld) [#/Vol] 3.73 10*6/uL Low 3.90-5.60 [facility] Comment on above: Order Comment: Reaso n for Exam Hyperlipidemia Performed By: #### C OVID-19 MARS, SOFIANEG #### [facility] [address] [place] [address] WBC (Bld) [#/Vol] 4.7 10*3/uL Normal 4.1-10.5 [facility] Comment on above: Order Comment: Reaso n for Exam Hyperlipidemia Performed By: #### C OVID-19 MARS, SOFIANEG #### [facility] [address] [place] [address] Comprehensive Metabolic Pane haley 09-08-2022 Albumin [Mass/Vol] 4.1 g/dL Normal 3.5-5.7 [facility] Comment on above: Order Comment: Reaso n for Exam Hyperlipidemia Performed By: #### C OVID-19 MARS, SOFIANEG #### [facility] [address] [place] [address] [place] Albumin/Globulin [Mass ratio] 1.9 {ratio} Normal [facility] Comment on above: Order Comment: Reaso n for Exam Hyperlipidemia Performed By: #### C OVID-19 MARS, SOFIANEG #### [facility] [address] [place] [address] [place] ALP [Catalytic activity/Vol] 124 U/L High 34-104 [facility] Comment on above: Order Comment: Reaso n for Exam Hyperlipidemia Performed By: #### C OVID-19 MARS, SOFIANEG #### [facility] [address] [place] [address] [facility] ALT [Catalytic activity/Vol] 31 U/L Normal 7-52 [facility] Comment on above: Order Comment: Reaso n for Exam Hyperlipidemia Performed By: #### C OVID-19 MARS, SOFIANEG #### [facility] [address] [place] [id number] [facility] Anion gap [Moles/Vol] 8.3 mmol/L Normal 6.0-15.0 [facility] Comment on above: Order Comment: Reaso n for Exam Hyperlipidemia Performed By: #### C OVID-19 MARS, SOFIANEG #### [facility] [address] [place] [address] [place] AST [Catalytic activity/Vol] 47 U/L High 13-39 [facility] Comment on above: Order Comment: Reaso n for Exam Hyperlipidemia Performed By: #### C OVID-19 MARS, SOFIANEG #### [facility] [address] [place] [address] [place] Bilirubin [Mass/Vol] 0.7 mg/dL Normal 0.3-1.0 [facility] Comment on above: Order Comment: Reaso n for Exam Hyperlipidemia Performed By: #### C OVID-19 MARS, SOFIANEG #### [facility] [address] [place] [address] [place] Calcium [Mass/Vol] 9.5 mg/dL Normal 8.6-10.3 [facility] Comment on above: Order Comment: Reaso n for Exam Hyperlipidemia Performed By: #### C OVID-19 MARS, SOFIANEG #### [facility] [address] [place] [address] [place] Chloride [Moles/Vol] 107 mmol/L Normal 98-107 [facility] Comment on above: Order Comment: Reaso n for Exam Hyperlipidemia Performed By: #### C OVID-19 MARS, SOFIANEG #### [facility] [address] [place] [address] [place] CO2 [Moles/Vol] 30.7 mmol/L Normal 21.0-31.0 [facility] Comment on above: Order Comment: Reaso n for Exam Hyperlipidemia Performed By: #### C OVID-19 MARS, SOFIANEG #### [facility] [address] Creatinine [Mass/Vol] 1.18 mg/dL Normal 0.70-1.30 [facility] Comment on above: Order Comment: Reaso n for Exam Hyperlipidemia Performed By: #### C OVID-19 MARS, SOFIANEG #### [facility] [address] [place] [address] [place] GFR/1.73 sq M.predicted MDRD (S/P/Bld) [Vol rate/Area] mL/min/{1.73_m2} [facility] Comment on above: Order Comment: Reaso n for Exam Hyperlipidemia Performed By: #### C OVID-19 MARS, SOFIANEG #### [facility] [address] [place] [address] [place] Globulin (S) [Mass/Vol] 2.2 g/dL [facility] Comment on above: Order Comment: Reaso n for Exam Hyperlipidemia Performed By: #### C OVID-19 MARS, SOFIANEG #### [facility] [address] [place] [address] [place] Glucose [Mass/Vol] 83 mg/dL Normal 70-100 [facility] Comment on above: Order Comment: Reaso n for Exam Hyperlipidemia Result Comment: [facility] [place][note 2] Glucose Reference Range is dependent on time and content of last meal. Glucose of more than 200 mg/dL in a nonstressed, ambulatory subject supports the diagnosis of Diabetes Mellitus. ADA recommended reference range Performed By: #### C OVID-19 MARS, SOFIANEG #### [facility] [address] [place] [address] [place] Potassium [Moles/Vol] 4.0 mmol/L Normal 3.5-5.1 [facility] Comment on above: Order Comment: Reaso n for Exam Hyperlipidemia Performed By: #### C OVID-19 MARS, SOFIANEG #### [facility] [address] Protein [Mass/Vol] 6.3 g/dL Low 6.4-8.9 [facility] Comment on above: Order Comment: Reaso n for Exam Hyperlipidemia Performed By: #### C OVID-19 MARS, SOFIANEG #### [facility] [address] [place] [address] Sodium [Moles/Vol] 142 mmol/L Normal 136-145 [facility] Comment on above: Order Comment: Reaso n for Exam Hyperlipidemia Performed By: #### C OVID-19 MARS, SOFIANEG #### [facility] [address] [place] [address] [place] Urea nitrogen [Mass/Vol] 22 mg/dL Normal 7-25 [facility] Comment on above: Order Comment: Reaso n for Exam Hyperlipidemia Performed By: #### C OVID-19 MARS, SOFIANEG #### [facility] [address] [place] [address] [place] Creatinine [Mass/volume] in Serum or PlasmaOrdered By: Feliicano Ga on 09-08-2022 Creatinine [Mass/Vol] 1.18 mg/dL 0.70-1.30 [facility] Eosinophils Auto (Bld) [#/Vo l]Ordered By: Feliciano Ga on 09-08-2022 Eosinophils (Bld) [#/Vol] 0.8 10*3/uL 0.0-0.45 [facility] Eosinophils/100 WBC Auto (Bl d)Ordered By: Feliciano Ga on 09-08-2022 Eosinophils/100 WBC (Bld) 16.6 % . [facility] Erythrocyte distribution wid th Auto (RBC) [Ratio]Ordered By: Feliciano Ga on 09-08-2022 Erythrocyte distribution width (RBC) [Ratio] 14.9 % 12.0-14.8 [facility] Free T4 (Free Thyroxine)on 0 09-08-2022 Free T4 [Mass/Vol] 1.28 ng/dL High 0.61-1.12 [facility] Comment on above: Order Comment: Reaso n for Exam Weight loss Reason for Exam Hyperlipidemia Performed By: #### C OVID-19 MARS, SOFIANEG #### [facility] [address] Globulin Calc (S) [Mass/Vol] Ordered By: Feliciano Ga on 09-08-2022 Globulin (S) [Mass/Vol] 2.2 g/dL [facility] Glucose [Mass/volume] in Ser um or PlasmaOrdered By: Feliciano Ga on 09-08-2022 Glucose [Mass/Vol] 83 mg/dL 70-100 [facility] Comment on above: ADA recommended refe rence rangeRandom Glucose Reference Range is dependent on time and content of last meal. Glucose of more than 200 mg/dL in a nonstressed, ambulatory subject supports the diagnosis of Diabetes Mellitus. Hematocrit Auto (Bld) [Volum e fraction]Ordered By: Feliciano Ga on 09-08-2022 Hematocrit (Bld) [Volume fraction] 37.1 % 38.8-50.0 [facility] Hemoglobin [Mass/volume] in BloodOrdered By: Feliciano Ga on 09-08-2022 Hemoglobin (Bld) [Mass/Vol] 12.5 g/dL 13.0-17.0 [facility] Leukocytes [#/volume] correc fern for nucleated erythrocytes in Blood by Automated counOrdered By: Felicaino Ga on 09-08-2022 WBC corrected for nucl RBC Auto (Bld) [#/Vol] 4.7 10*3/uL 4.1-10.5 [facility] Lipid Panelon 09-08-2022 Cholesterol [Mass/Vol] 124 mg/dL Low 140-200 [facility] Comment on above: Order Comment: Reaso n for Exam Hyperlipidemia Result Comment: Chol less than 200 mg/dl low risk Chol 201-239 mg/dl borderline risk Chol 240 mg/dl and greater high risk Performed By: #### C OVID-19 MARS SOFIANEG #### [facility] [address] [place] [address] [place] Cholesterol in HDL [Mass/Vol] 67 mg/dL Normal 23-92 [facility] Comment on above: Order Comment: Reaso n for Exam Hyperlipidemia Result Comment: HDL CHOL ATP-III CLASSIFICATION Cardiovascular Risk HDL > or equal to 60 mg/dL LOW HDL < 40 mg/dL HIGH Performed By: #### C OVID-19 MARS, SOFIANEG #### [facility] [address] Cholesterol.total/Chol esterol in HDL [Mass ratio] 1.9 {ratio} Normal <5.0 [facility] Comment on above: Order Comment: Reaso n for Exam Hyperlipidemia Result Comment: PERF ORMED BY: [place] [address] PATHOLOGIST [employer]CRAFT [employer]IN CLE[employer]ER JAYY SANTA M.D. Performed By: #### C OVID-19 MARS, SOFIANEG #### [facility] [address] LDL Cholesterol,Calculated 44 mg/dL Normal 0-100 [facility] Comment on above: Order Comment: Reaso n for Exam Hyperlipidemia Result Comment: LDL ATP III CLASSIFICATION LDL less than 100 mg/dL Optimal LDL 100-129 mg/dL Near or above optimal LDL 130-159 mg/dL Borderline high LDL 160-189 mg/dL High LDL greater than 189 mg/dL Very high Performed By: #### C OVID-19 MARS, SOFIANEG #### [facility] [address] [place] [address] [place] Triglyceride w/Reflex 66 mg/dL Normal 0-149 [facility] Comment on above: Order Comment: Reaso n for Exam Hyperlipidemia Result Comment: TRIG ATP III CLASSIFICATION TRIG less than 150 mg/dL Normal TRIG 150-199 mg/dL Borderline high TRIG 200-500 mg/dL High TRIG greater than 500 mg/dL Very high Standard traceable to the Center for Disease Conrtrol and Prevention (CDC) test method. Performed By: #### C OVID-19 MARS, SOFIANEG #### [facility] [address] VLDL CHOLESTEROL 13 mg/dL Normal [facility] Comment on above: Order Comment: Reaso n for Exam Hyperlipidemia Performed By: #### C OVID-19 MARS, SOFIANEG #### [facility] [address] Lymphocytes Auto (Bld) [#/Vo l]Ordered By: Feliciano Ga on 09-08-2022 Lymphocytes (Bld) [#/Vol] 1.3 10*3/uL 1.00-4.8 [facility] Lymphocytes/100 WBC Auto (Bl d)Ordered By: Feliciano Ga on 09-08-2022 Lymphocytes/100 WBC (Bld) 27.0 % . [facility] MCH Auto (RBC) [Entitic mass ]Ordered By: Feliciano Ga on 09-08-2022 MCH (RBC) [Entitic mass] 33.5 pg 27.5-35.2 [facility] MCHC Auto (RBC) [Mass/Vol]Or dered By: Feliciano Ga on 09-08-2022 MCHC (RBC) [Mass/Vol] 33.6 g/dL 32.5-35.6 [facility] MCV Auto (RBC) [Entitic vol] Ordered By: Feliciano Ga on 09-08-2022 MCV (RBC) [Entitic vol] 99.7 fL 83.5-101 [facility] Monocytes Auto (Bld) [#/Vol] Ordered By: Feliciano Ga on 09-08-2022 Monocytes (Bld) [#/Vol] 0.3 10*3/uL 0.0-0.8 [facility] Monocytes/100 WBC Auto (Bld) Ordered By: Feliciano Ga on 09-08-2022 Monocytes/100 WBC (Bld) 7.2 % . [facility] Natriuretic peptide B [Mass/ Vol]Ordered By: Bhupinder Mcintyre on 09-08-2022 Natriuretic peptide B (Bld) [Mass/Vol] 123.0 pg/mL 5-100 [facility] Neutrophils Auto (Bld) [#/Vo l]Ordered By: Feliciano Ga on 09-08-2022 Neutrophils (Bld) [#/Vol] 2.2 10*3/uL 1.8-7.7 [facility] Neutrophils/100 WBC Auto (Bl d)Ordered By: Feliciano Ga on 09-08-2022 Neutrophils/100 WBC (Bld) 48.2 % . [facility] No Panel Informationon 09-08 123.0\S\123.0 above high threshold 5-100 [facility] Heart-Sandu lauro 250 DO Work Phone: Comment on above: PERFORMED BY:[facility] [facility] [place] [phone] MEDICAL DIRECTORJAYY SANTA M.D. No Panel InformationOrdered By: Feliciano Ga on 09-08-2022 Estimated GFR (CKD-EPI) > 60.0 mL/Min [facility] Pharmacy Creatinine Clearance (Chem N/A [facility] Nucleated erythrocytes [Pres ence] in Blood by Automated countOrdered By: Feliciano Ga on 09-08-2022 Nucleated RBC Auto Ql (Bld) 0.2 /100{WBC} 0-0.5 [facility] PSA Screen (Yearly Only)on 0 09-08-2022 PSA Screen (Yearly Only) 2.140 ng/mL Normal 0.000-4.00 0 [facility] Comment on above: Order Comment: Reaso n for Exam Screening for prostate cancer Is patient <50 yrs? Medicare does not pay <50.: N What is the date of the last PSA Screen?: [id number] Is Medicare the insurance?: Y Did you verify eligibility (Dx Time) check TestViewGp: YES TO ALL Result Comment: PERF ORMED BY: [facility] [address] [place] [address] PATHOLOGIST [employer]ER JAYY SANTA M.D. Performed By: #### C OVID-19 MARS, SOFIANEG #### [facility] [address] [place] [address] [place] Platelet mean volume Auto (B ld) [Entitic vol]Ordered By: Feliciano Ga on 09-08-2022 Platelet mean volume (Bld) [Entitic vol] 8.8 fL 6.6-10.1 [facility] Platelets Auto (Bld) [#/Vol] Ordered By: Feliciano Ga on 09-08-2022 Platelets (Bld) [#/Vol] 155 10*3/uL 150-450 [facility] Potassium [Moles/volume] in Serum or PlasmaOrdered By: Feliciano Ga on 09-08-2022 Potassium [Moles/Vol] 4.0 mmol/L 3.5-5.1 [facility] Prostate specific Ag [Mass/v olume] in Serum or PlasmaOrdered By: Feliciano Ga on 09-08-2022 Prostate specific Ag [Mass/Vol] 2.140 ng/mL 0.000-4.00 0 [facility] Protein [Mass/volume] in Ser um or PlasmaOrdered By: Feliciano Ga on 09-08-2022 Protein [Mass/Vol] 6.3 g/dL 6.4-8.9 [facility] RBC Auto (Bld) [#/Vol]Ordere d By: Feliciano Ga on 09-08-2022 RBC (Bld) [#/Vol] 3.73 10*6/uL 3.90-5.60 [facility] Serum or plasma albumin/glob ulin mass ratioOrdered By: Feliciano Ga on 09-08-2022 Albumin/Globulin [Mass ratio] 1.9 {ratio} [facility] Serum or plasma anion gap de terminationOrdered By: Feliciano Ga on 09-08-2022 Anion gap [Moles/Vol] 8.3 mmol/L 6.0-15.0 [facility] Serum or plasma high density lipoprotein (HDL) cholesterol measurementOrdered By: Feliciano Ga on 09-08-2022 Cholesterol in HDL [Mass/Vol] 67 mg/dL 23-92 [facility] Comment on above: HDL CHOL ATP-III CLA SSIFICATION Cardiovascular RiskHDL > or equal to 60 mg/dL LOWHDL < 40 mg/dL HIGH Serum or plasma total choles terol/high density lipoprotein (HDL) cholesterol mass ratOrdered By: Feliciano Ga on 09-08-2022 Cholesterol.total/Chol esterol in HDL [Mass ratio] 1.9 {ratio} <5.0 [facility] Sodium [Moles/volume] in Ser um or PlasmaOrdered By: Feliciano Ga on 09-08-2022 Sodium [Moles/Vol] 142 mmol/L 136-145 [facility] Thyroid Stimulating Hormoneo n 09-08-2022 TSH Qn 0.46 m[IU]/L Normal 0.45-5.33 [facility] Comment on above: Order Comment: Reaso n for Exam Weight loss Reason for Exam Hyperlipidemia Result Comment: PERF ORMED BY: [place] [address] PATHOLOGIST [employer] JAYY SANTA M.D. Performed By: #### C OVID-19 MARS, SOFIANEG #### [address] Thyrotropin [Units/volume] i n Serum or PlasmaOrdered By: Feliciano Ga on 09-08-2022 TSH Qn 0.46 m[IU]/L 0.45-5.33 [facility] Thyroxine (T4) free [Mass/vo lume] in Serum or PlasmaOrdered By: Feliciano Ga on 09-08-2022 Free T4 [Mass/Vol] 1.28 ng/dL 0.61-1.12 [facility] Triglyceride [Mass/volume] i n Serum or PlasmaOrdered By: Feliciano Ga on 09-08-2022 Triglyceride [Mass/Vol] 66 mg/dL 0-149 [facility] Comment on above: TRIG ATP III CLASSIF ICATIONTRIG less than 150 mg/dL NormalTRIG 150-199 mg/dL Borderline highTRIG 200-500 mg/dL High TRIG greater than 500 mg/dL Very highStandard traceable to the Center for Disease Conrtrol and Prevention (CDC) test method. Urea nitrogen [Mass/volume] in Serum or PlasmaOrdered By: Feliciano Ga on 09-08-2022 Urea nitrogen [Mass/Vol] 22 mg/dL 7-25 [facility] WBC Auto (Bld) [#/Vol]Ordere d By: Feliciano Ga on 09-08-2022 WBC (Bld) [#/Vol] 4.7 10*3/uL 4.1-10.5 [facility] Office Visit (Cardiology)on 07-07-2022 Follow-up visit [...] of Cardiac catheterization History of Complete colonoscopy [facility] History of Epidural steroid injection History of [...] other sy (more content not included)... Normal [facility] Tobacco Screening.on [address] [facility] b) No -[facility] ExtendEvent 250 DO Work Phone: US KIDNEYS BLADDERon [...] RONALD ISRAEL Date: 2022-05-13 09:51 Normal The [facility] Cardiovasc Arrhythmia Result son 03-15-2022 Cardiovasc Arrhythmia Results Reason For Visit Reason for Visit: Holter Monitor: IRINEO is here for the application of a 24 hour Holter monitor. Ordering Physician: Enedelia Aguillon NP Diagnosis: afib NO equipment agreement signed. IRINEO understandcatie monitor is to be returned on: 03/16/2022 Monitor number [id number] applied. Holter monitor printed and placed on [...] Future Appointments Date/TimeProviderSpecialty Site 07/07/2022 09:20 Irineo Link, [id number] [facility] [address] 250 DO Signatures Electronically signed by : Marv Drew MD; Mar 19 2022 6:25PM EST (Author) Electronically signed by : Enedelia Gomez APRN-GOLF COURSE SUPERINTENDENT; Mar 22 2022 9:37AM EST (Author) Normal [employer] Basic Metabolic Panelon 01-0 Anion gap [Moles/Vol] 10.1 mmol/L Normal 6.0-15.0 [facility] Comment on above: Performed By: #### C OVID-19 DOUGIE CREWSIANEG #### [facility] [address] Calcium [Mass/Vol] 9.9 mg/dL Normal 8.2-10.2 [facility] Comment on above: Result Comment: PERF ORMED BY: [place] [address] PATHOLOGIST [employer] CLE[employer]ER JAYY SANTA M.D. Performed By: #### C OVID-19 MARS SOFIANEG #### [facility] [address] [place] [address] Chloride [Moles/Vol] 100 mmol/L Normal 95-114 [facility] Comment on above: Performed By: #### C OVID-19 MARS SOFIANEG #### [facility] [address] CO2 [Moles/Vol] 30.5 mmol/L High 22.0-30.0 [facility] Comment on above: Performed By: #### C OVID-19 MARS SOFIANEG #### [facility] [address] Creatinine [Mass/Vol] 1.28 mg/dL High 0.64-1.27 [facility] Comment on above: Performed By: #### C OVID-19 MARS SOFIANEG #### [facility] [address] Estimated GFR ( Amarilis > 60 [facility] Comment on above: Result Comment: GFR estimated reference range: According to KDOQI guidelines, <60 ml/min/1.73m2 is sufficient to diagnose a patient with chronic kidney disease. Performed By: #### C OVID-19 MARS SOFIANEG #### [facility] [address] [place] [address] [place] Estimated GFR (Non- Am 54 [facility] Comment on above: Performed By: #### C OVID-19 MARS SOFIANEG #### [facility] [address] [place] [address] [place] Glucose [Mass/Vol] 96 mg/dL Normal 70-100 [facility] Comment on above: Result Comment: [place] Glucose Reference Range is dependent on time and content of last meal. Glucose of more than 200 mg/dL in a nonstressed, ambulatory subject supports the diagnosis of Diabetes Mellitus. ADA recommended reference range Performed By: #### C OVID-19 MARS, SOFIANEG #### [facility] [address] Potassium [Moles/Vol] 3.6 mmol/L Normal 3.5-5.1 [facility] Comment on above: Performed By: #### C OVID-19 MARS SOFIANEG #### [facility] [address] [place] [address] [place] Sodium [Moles/Vol] 137 mmol/L Normal 136-146 [facility] Comment on above: Performed By: #### C OVID-19 MARS, SOFIANEG #### [facility] [address] [place] [address] [place] Urea nitrogen [Mass/Vol] 17 mg/dL Normal 9-23 [facility] Comment on above: Performed By: #### C OVID-19 MARS, SOFIANEG #### [facility] [address] [place] [address] [place] Creatinine and Glomerular fi ltration rate.predicted panel (S/P/Bld)Ordered By: Enedelia Gomez on 03-11-2022 Creatinine [Mass/Vol] 1.28 mg/dL 0.64-1.27 [facility] Estimated glomerular filtrat ion rate (GFR) non- AmericanOrdered By: Enedelia Gomez on 03-11-2022 GFR/1.73 sq M.predicted among non-blacks MDRD (S/P/Bld) [Vol rate/Area] 54 mL/Min [facility] No Panel InformationOrdered By: Enedelia Gomez on 03-11-2022 Estimated GFR () > 60 mL/Min [facility] Comment on above: GFR estimated refere nce range: According to KDOQI guidelines, <60 ml/min/1.73m2 is sufficient to diagnose a patient with chronic kidney disease. Pharmacy Creatinine Clearance (Chem N/A [facility] No Panel Informationon 03-11 10.1\S\10.1 Normal 6.0-15.0 [facility] la[facility] 250 DO Work Phone: 9.9\S\9.9 Normal 8.2-10.2 [facility] lauro 250 DO Work Phone: Comment on above: PERFORMED BY:[facility] [facility], [place] [phone] MEDICAL DIRECTORJIANLAN SUN M.D. 30.5\S\30.5 above high threshold 22.0-30.0 [facility] Harpreet restrepo 250 DO Work Phone: 100\S\100 Normal 95-114 [facility] Harpreet restrepo 250 DO Work Phone: 3.6\S\3.6 Normal 3.5-5.1 [facility] Harpreet restrepo 250 DO Work Phone: [phone] 137\S\137 Normal 136-146 [facility] Harpreet restrepo 250 DO Work Phone: > 60 Normal [facility] aHrpreet restrepo 250 DO Work Phone: Comment on above: GFR estimated refere nce range: According to KDOQI guidelines, <60 ml/min/1.73m2 is sufficient to diagnose a patient with chronic kidney disease. 54\S\54 Normal [facility] Harpreet restrepo 250 DO Work Phone: 1.28\S\1.28 above high threshold 0.64-1.27 [facility] Harpreet restrepo 250 DO Work Phone: 17\S\17 Normal 9-23 [facility] Harpreet restrepo 250 DO Work Phone: 96\S\96 Normal 70-100 [facility] Harpreet restrepo 250 DO Work Phone: Comment on above: Random Glucose Refer ence Range is dependent on time and content of last meal. Glucose of more than 200 mg/dL in a nonstressed, ambulatory subject supports the diagnosis of Diabetes Mellitus. ADA recommended reference range Serum or plasma anion gap de terminationOrdered By: Enedelia Gomez on 03-11-2022 Anion gap [Moles/Vol] 10.1 mmol/L 6.0-15.0 [facility] Serum or plasma calcium alistair urement (mass/volume)Ordered By: Enedelia Gomez on 03-11-2022 Calcium [Mass/Vol] 9.9 mg/dL 8.2-10.2 [facility] Serum or plasma chloride jaymie surement (moles/volume)Ordered By: Enedelia Gomez on 03-11-2022 Chloride [Moles/Vol] 100 mmol/L 95-114 [facility] Serum or plasma glucose alistair urement (mass/volume)Ordered By: Enedelia Gomez on 03-11-2022 Glucose [Mass/Vol] 96 mg/dL 70-100 [facility] Comment on above: ADA recommended refe rence rangeRandom Glucose Reference Range is dependent on time and content of last meal. Glucose of more than 200 mg/dL in a nonstressed, ambulatory subject supports the diagnosis of Diabetes Mellitus. Serum or plasma potassium me asurement (moles/volume)Ordered By: Enedelia Gomez on 03-11-2022 Potassium [Moles/Vol] 3.6 mmol/L 3.5-5.1 [facility] Serum or plasma sodium measu rement (moles/volume)Ordered By: Enedelia Gomez on 03-11-2022 Sodium [Moles/Vol] 137 mmol/L 136-146 [facility] Serum or plasma total carbon dioxide measurement (moles/volume)Ordered By: Enedelia Gomez on 03-11-2022 CO2 [Moles/Vol] 30.5 mmol/L 22.0-30.0 [facility] Serum or plasma urea nitroge n measurement (mass/volume)Ordered By: Enedelia Gomez on 03-11-2022 Urea nitrogen [Mass/Vol] 17 mg/dL 9-23 [facility] Office Visit (Cardiology)on 03-10-2022 Follow-up visit Diagnoses/Problems [...] Mcintyre July 2021. 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 He denies any palpitations or fast heartbeats. [...] of Cardiac catheterization History of Complete colonoscopy [facility] History of Epidural steroid injection History of [...] TabletTAKE 1 (more content not included)... Normal [employer] Tobacco Screening.on 023 Adult depression screening assessment No [facility] ExtendEvent 250 DO Work Phone: Fall risk assessment b) One or more fall s in the last year [facility] ExtendEvent 250 DO Work Phone: Tobacco use status [facility] b) No [facility] ExtendEvent 250 DO Work Phone: Basic Metabolic Panelon 11- Anion gap [Moles/Vol] 11.4 mmol/L Normal 6.0-15.0 [facility] Comment on above: Performed By: #### C BC, BMP #### [facility] [address] Calcium [Mass/Vol] 9.0 mg/dL Normal 8.2-10.2 [facility] Comment on above: Performed By: #### C BC, BMP #### [facility] [address] Chloride [Moles/Vol] 95 mmol/L Normal 95-114 [facility] Comment on above: Performed By: #### C BC, BMP #### [facility] [address] CO2 [Moles/Vol] 29.6 mmol/L Normal 22.0-30.0 [facility] Comment on above: Performed By: #### C BC, BMP #### [address] Creatinine [Mass/Vol] 1.56 mg/dL High 0.64-1.27 [facility] Comment on above: Performed By: #### C BC, BMP #### [address] Creatinine Clr Calc Pharmacy 39.79 [facility] Comment on above: Result Comment: PERF ORMED BY: [place] [address] PATHOLOGIST AIRCRAFT [employer]IN CLEANER JAYY SANTA M.D. Performed By: #### C BC, BMP #### [address] Estimated GFR ( Amarilis 52 [facility] Comment on above: Result Comment: GFR estimated reference range: According to KDOQI guidelines, <60 ml/min/1.73m2 is sufficient to diagnose a patient with chronic kidney disease. Performed By: #### C BC, BMP #### [place] [address] [place] Estimated GFR (Non- Am 43 [facility] Comment on above: Performed By: #### C BC, BMP #### [facility] [address] Glucose [Mass/Vol] 87 mg/dL Normal 70-100 [facility] Comment on above: Result Comment: [place] Glucose Reference Range is dependent on time and content of last meal. Glucose of more than 200 mg/dL in a nonstressed, ambulatory subject supports the diagnosis of Diabetes Mellitus. ADA recommended reference range Performed By: #### C BC, BMP #### [facility] [address] Potassium [Moles/Vol] 4.0 mmol/L Normal 3.5-5.1 [facility] Comment on above: Performed By: #### C BC, BMP #### [address] Sodium [Moles/Vol] 132 mmol/L Low 136-146 [facility] Comment on above: Performed By: #### C KARTIK, BMP #### [facility] [address] Urea nitrogen [Mass/Vol] 29 mg/dL High 9-23 [facility] Comment on above: Performed By: #### C BC, BMP #### [facility] [address] [place] [address] Basophils Auto (Bld) [#/Vol] Ordered By: Raji Raymon on 01-16-2022 Basophils (Bld) [#/Vol] 0.1 10*3/uL 0.0-0.2 [facility] Basophils/100 WBC Auto (Bld) Ordered By: Raji Raymon on 01-16-2022 Basophils/100 WBC (Bld) 1.0 % . [facility] Complete Blood Count Auto Di ffon 01-16-2022 Basophils (Bld) [#/Vol] 0.1 10*3/uL Normal 0.0-0.2 [facility] Comment on above: Result Comment: PERF ORMED BY: [place] [address] PATHOLOGIST [employer]CRA[employer]IN CLE[employer]ER JAYY SANTA M.D. Performed By: #### C BC, BMP #### [facility] [address] [place] [address] [place] Basophils/100 WBC (Bld) 1.0 % Normal . [facility] Comment on above: Performed By: #### C BC, BMP #### [facility] [address] [place] [address] [place] Eosinophils (Bld) [#/Vol] 0.4 10*3/uL Normal 0.0-0.45 [facility] Comment on above: Performed By: #### C BC, BMP #### [facility] [address] [place] [address] [place] Eosinophils/100 WBC (Bld) 5.6 % Normal . [facility] Comment on above: Performed By: #### C BC, BMP #### [address] Erythrocyte distribution width (RBC) [Ratio] 15.3 % High 12.0-14.8 [facility] Comment on above: Performed By: #### C BC, BMP #### [facility] [address] Hematocrit (Bld) [Volume fraction] 35.4 % Low 38.8-50.0 [facility] Comment on above: Performed By: #### C BC, BMP #### [address] Hemoglobin (Bld) [Mass/Vol] 11.8 g/dL Low 13.0-17.0 [facility] Comment on above: Performed By: #### C BC, BMP #### [facility] [address] [place] [address] [place] Lymphocytes (Bld) [#/Vol] 1.1 10*3/uL Normal 1.00-4.8 [facility] Comment on above: Performed By: #### C BC, BMP #### [facility] [address] [place] [address] [place] Lymphocytes/100 WBC (Bld) 17.1 % Normal . [facility] Comment on above: Performed By: #### C BC, BMP #### [facility] [address] MCH (RBC) [Entitic mass] 33.2 pg Normal 27.5-35.2 [facility] Comment on above: Performed By: #### C BC, BMP #### [facility] [address] MCV (RBC) [Entitic vol] 100.0 fL Normal 83.5-101 [facility] Comment on above: Performed By: #### C BC, BMP #### [facility] [address] Mean Corpuscular HGB Conc 33.3 g/dL Normal 32.5-35.6 [facility] Comment on above: Performed By: #### C BC, BMP #### [facility] [address] Monocytes (Bld) [#/Vol] 0.8 10*3/uL Normal 0.0-0.8 [facility] Comment on above: Performed By: #### C BC, BMP #### [facility] [address] [address] Monocytes/100 WBC (Bld) 11.9 % Normal . [facility] Comment on above: Performed By: #### C BC, BMP #### [facility] [address] Neutrophils (Bld) [#/Vol] 4.2 10*3/uL Normal 1.8-7.7 [facility] Comment on above: Performed By: #### C BC, BMP #### [facility] [address] [place] [address] [place] Neutrophils/100 WBC (Bld) 64.4 % Normal . [facility] Comment on above: Performed By: #### C BC, BMP #### [facility] [address] Nucleated RBC/100 WBC (Bld) [Ratio] 0.0 % Normal 0-0.5 [facility] Comment on above: Performed By: #### C BC, BMP #### [facility] [address] [place] [address] [place] Platelet mean volume (Bld) [Entitic vol] 9.1 fL Normal 6.6-10.1 [facility] Comment on above: Performed By: #### C KARTIK, BMP #### [facility] [address] [place] [address] [place] Platelets (Bld) [#/Vol] 195 10*3/uL Normal 150-450 [facility] Comment on above: Performed By: #### C KARTIK, BMP #### [facility] [address] RBC (Bld) [#/Vol] 3.54 10*6/uL Low 3.90-5.60 [facility] Comment on above: Performed By: #### C KARTIK, BMP #### [facility] [address] WBC (Bld) [#/Vol] 6.5 10*3/uL Normal 4.5-11.0 [facility] Comment on above: Performed By: #### C KARTIK, BMP #### [facility] [address] Creatinine and Glomerular fi ltration rate.predicted panel (S/P/Bld)Ordered By: Raji Ennis on 01-16-2022 Creatinine [Mass/Vol] 1.56 mg/dL 0.64-1.27 [facility] Eosinophils Auto (Bld) [#/Vo l]Ordered By: RajiStaufferam on 01-16-2022 Eosinophils (Bld) [#/Vol] 0.4 10*3/uL 0.0-0.45 [facility] Eosinophils/100 WBC Auto (Bl d)Ordered By: Raji Raymon on 01-16-2022 Eosinophils/100 WBC (Bld) 5.6 % . [facility] Erythrocyte distribution wid th Auto (RBC) [Ratio]Ordered By: Raji Raymon on 01-16-2022 Erythrocyte distribution width (RBC) [Ratio] 15.3 % 12.0-14.8 [facility] Estimated glomerular filtrat ion rate (GFR) non- AmericanOrdered By: Raji Ennis on 01-16-2022 GFR/1.73 sq M.predicted among non-blacks MDRD (S/P/Bld) [Vol rate/Area] 43 mL/Min [facility] Hematocrit Auto (Bld) [Volum e fraction]Ordered By: Raji Ennis on 01-16-2022 Hematocrit (Bld) [Volume fraction] 35.4 % 38.8-50.0 [facility] Hemoglobin [Mass/volume] in BloodOrdered By: Raji Ennis on 01-16-2022 Hemoglobin (Bld) [Mass/Vol] 11.8 g/dL 13.0-17.0 [facility] Laboratory - Hematology and Cell countsOrdered By: Raji Ennis on 01-16-2022 Nucleated RBC/100 WBC (Bld) [Ratio] 0.0 % 0-0.5 [facility] Leukocytes [#/volume] in Blo od by Automated countOrdered By: Raji Ennis on 01-16-2022 WBC (Bld) [#/Vol] 6.5 10*3/uL 4.5-11.0 [facility] Lymphocytes Auto (Bld) [#/Vo l]Ordered By: Raji Ennis on 01-16-2022 Lymphocytes (Bld) [#/Vol] 1.1 10*3/uL 1.00-4.8 [facility] Lymphocytes/100 WBC Auto (Bl d)Ordered By: Raji Ennis on 01-16-2022 Lymphocytes/100 WBC (Bld) 17.1 % . [facility] MCH Auto (RBC) [Entitic mass ]Ordered By: Raji Ennis on 01-16-2022 MCH (RBC) [Entitic mass] 33.2 pg 27.5-35.2 [facility] MCHC Auto (RBC) [Mass/Vol]Or dered By: Raji Ennis on 01-16-2022 MCHC (RBC) [Mass/Vol] 33.3 g/dL 32.5-35.6 [facility] MCV Auto (RBC) [Entitic vol] Ordered By: Raji Ennis on 01-16-2022 MCV (RBC) [Entitic vol] 100.0 fL 83.5-101 [facility] Monocytes Auto (Bld) [#/Vol] Ordered By: Raji Ennis on 01-16-2022 Monocytes (Bld) [#/Vol] 0.8 10*3/uL 0.0-0.8 [facility] Monocytes/100 WBC Auto (Bld) Ordered By: Raji Ennis on 01-16-2022 Monocytes/100 WBC (Bld) 11.9 % . [facility] Neutrophils Auto (Bld) [#/Vo l]Ordered By: Raji Ennis on 01-16-2022 Neutrophils (Bld) [#/Vol] 4.2 10*3/uL 1.8-7.7 [facility] Neutrophils/100 WBC Auto (Bl d)Ordered By: Raji Ennis on 01-16-2022 Neutrophils/100 WBC (Bld) 64.4 % . [facility] No Panel InformationOrdered By: Raji Ennis on 01-16-2022 Estimated GFR () 52 mL/Min [facility] Comment on above: GFR estimated refere nce range: According to KDOQI guidelines, <60 ml/min/1.73m2 is sufficient to diagnose a patient with chronic kidney disease. Pharmacy Creatinine Clearance (Chem 39.79 [facility] Platelet mean volume Auto (B ld) [Entitic vol]Ordered By: Raji Ennis on 01-16-2022 Platelet mean volume (Bld) [Entitic vol] 9.1 fL 6.6-10.1 [facility] Platelets Auto (Bld) [#/Vol] Ordered By: Raji Ennis on 01-16-2022 Platelets (Bld) [#/Vol] 195 10*3/uL 150-450 [facility] RBC Auto (Bld) [#/Vol]Ordere d By: Raji Ennis on 01-16-2022 RBC (Bld) [#/Vol] 3.54 10*6/uL 3.90-5.60 [facility] Serum or plasma anion gap de terminationOrdered By: Raji Ennis on 01-16-2022 Anion gap [Moles/Vol] 11.4 mmol/L 6.0-15.0 [facility] Serum or plasma calcium alistair urement (mass/volume)Ordered By: RajiRobertson on 01-16-2022 Calcium [Mass/Vol] 9.0 mg/dL 8.2-10.2 [facility] Serum or plasma chloride jaymie surement (moles/volume)Ordered By: Raji Zucker [facility] on 01-16-2022 Chloride [Moles/Vol] 95 mmol/L 95-114 [facility] Serum or plasma glucose alistair urement (mass/volume)Ordered By: Raji Zucker [facility] on 01-16-2022 Glucose [Mass/Vol] 87 mg/dL 70-100 [facility] Comment on above: ADA recommended refe rence rangeRandom Glucose Reference Range is dependent on time and content of last meal. Glucose of more than 200 mg/dL in a nonstressed, ambulatory subject supports the diagnosis of Diabetes Mellitus. Serum or plasma potassium me asurement (moles/volume)Ordered By: Raji Zucker [facility] on 01-16-2022 Potassium [Moles/Vol] 4.0 mmol/L 3.5-5.1 [facility] Serum or plasma sodium measu rement (moles/volume)Ordered By: Raji Zucker [facility] on 01-16-2022 Sodium [Moles/Vol] 132 mmol/L 136-146 [facility] Serum or plasma total carbon dioxide measurement (moles/volume)Ordered By: Raji Zucker [facility] on 01-16-2022 CO2 [Moles/Vol] 29.6 mmol/L 22.0-30.0 [facility] Serum or plasma urea nitroge n measurement (mass/volume)Ordered By: [facility] on 01-16-2022 Urea nitrogen [Mass/Vol] 29 mg/dL 9-23 [facility] Basic Metabolic Panelon 01-05 Anion gap [Moles/Vol] 8.2 mmol/L Normal 6.0-15.0 [facility] Comment on above: Performed By: #### B MP, CBC #### [address] Calcium [Mass/Vol] 8.8 mg/dL Normal 8.2-10.2 [facility] Comment on above: Performed By: #### B MP, CBC #### [facility] [address] Chloride [Moles/Vol] 94 mmol/L Low 95-114 [facility] Comment on above: Performed By: #### B MP, CBC #### [facility] [address] CO2 [Moles/Vol] 31.7 mmol/L High 22.0-30.0 [facility] Comment on above: Performed By: #### B MP, CBC #### [facility] [address] Creatinine [Mass/Vol] 1.50 mg/dL High 0.64-1.27 [facility] Comment on above: Performed By: #### B MP, CBC #### [facility] [address] [place] [address] [place] Creatinine Clr Calc Pharmacy 41.13 [facility] Comment on above: Result Comment: PERF ORMED BY: [place] [address] PATHOLOGIST [employer] JAYY SANTA M.D. Performed By: #### B MP, CBC #### [facility] [address] [place] [address] Estimated GFR ( Amarilis 54 [facility] Comment on above: Result Comment: GFR estimated reference range: According to KDOQI guidelines, <60 ml/min/1.73m2 is sufficient to diagnose a patient with chronic kidney disease. Performed By: #### B MP, CBC #### [facility] [address] [place] [address] [place] Estimated GFR (Non- Am 45 [facility] Comment on above: Performed By: #### B MP, CBC #### [facility] [address] Glucose [Mass/Vol] 87 mg/dL Normal 70-100 [facility] Comment on above: Result Comment: [place] om Glucose Reference Range is dependent on time and content of last meal. Glucose of more than 200 mg/dL in a nonstressed, ambulatory subject supports the diagnosis of Diabetes Mellitus. ADA recommended reference range Performed By: #### B MP, CBC #### [address] Potassium [Moles/Vol] 3.9 mmol/L Normal 3.5-5.1 [facility] Comment on above: Performed By: #### B MP, CBC #### [address] Sodium [Moles/Vol] 130 mmol/L Low 136-146 [facility] Comment on above: Performed By: #### B MP, CBC #### [address] Urea nitrogen [Mass/Vol] 29 mg/dL High 9-23 [facility] Comment on above: Performed By: #### B MP, CBC #### [address] Complete Blood Count Auto Di ffon 01-15-2022 Basophils (Bld) [#/Vol] 0.1 10*3/uL Normal 0.0-0.2 [facility] Comment on above: Result Comment: PERF ORMED BY: [place] [address] PATHOLOGIST [employer] JAYY SANTA M.D. Performed By: #### B MP, CBC #### [place] [address] [place] Basophils/100 WBC (Bld) 0.7 % Normal . [facility] Comment on above: Performed By: #### B MP, CBC #### [place] [address] [place] Eosinophils (Bld) [#/Vol] 0.4 10*3/uL Normal 0.0-0.45 [facility] Comment on above: Performed By: #### B MP, CBC #### [place] [address] [place] Eosinophils/100 WBC (Bld) 4.9 % Normal . [facility] Comment on above: Performed By: #### B MP, CBC #### [address] Erythrocyte distribution width (RBC) [Ratio] 15.3 % High 12.0-14.8 [facility] Comment on above: Performed By: #### B MP, CBC #### [address] Hematocrit (Bld) [Volume fraction] 34.7 % Low 38.8-50.0 [facility] Comment on above: Performed By: #### B MP, CBC #### [address] Hemoglobin (Bld) [Mass/Vol] 11.7 g/dL Low 13.0-17.0 [facility] Comment on above: Performed By: #### B MP, CBC #### [address] Lymphocytes (Bld) [#/Vol] 1.0 10*3/uL Normal 1.00-4.8 [facility] Comment on above: Performed By: #### B MP, CBC #### [address] Lymphocytes/100 WBC (Bld) 13.2 % Normal . [facility] Comment on above: Performed By: #### B MP, CBC #### [place] [address] [place] MCH (RBC) [Entitic mass] 33.7 pg Normal 27.5-35.2 [facility] Comment on above: Performed By: #### B MP, CBC #### [address] MCV (RBC) [Entitic vol] 99.8 fL Normal 83.5-101 [facility] Comment on above: Performed By: #### B MP, CBC #### [address] Mean Corpuscular HGB Conc 33.8 g/dL Normal 32.5-35.6 [facility] Comment on above: Performed By: #### B MP, CBC #### [facility] [address] [place] [address] [place] Monocytes (Bld) [#/Vol] 0.8 10*3/uL Normal 0.0-0.8 [facility] Comment on above: Performed By: #### B MP, CBC #### [facility] [address] [place] [address] [place] Monocytes/100 WBC (Bld) 10.1 % Normal . [facility] Comment on above: Performed By: #### B MP, CBC #### [facility] [address] Neutrophils (Bld) [#/Vol] 5.6 10*3/uL Normal 1.8-7.7 [facility] Comment on above: Performed By: #### B MP, CBC #### [facility] [address] [place] [address] [place] Neutrophils/100 WBC (Bld) 71.1 % Normal . [facility] Comment on above: Performed By: #### B MP, CBC #### [facility] [address] [place] [address] [place] Nucleated RBC/100 WBC (Bld) [Ratio] 0.0 % Normal 0-0.5 [facility] Comment on above: Performed By: #### B MP, CBC #### [facility] [address] [place] [address] [place] Platelet mean volume (Bld) [Entitic vol] 9.1 fL Normal 6.6-10.1 [facility] Comment on above: Performed By: #### B MP, CBC #### [facility] [address] [place] [address] [place] Platelets (Bld) [#/Vol] 180 10*3/uL Normal 150-450 [facility] Comment on above: Performed By: #### B MP, CBC #### [facility] [address] [place] [address] [place] RBC (Bld) [#/Vol] 3.48 10*6/uL Low 3.90-5.60 [facility] Comment on above: Performed By: #### B MP, CBC #### [facility] [address] [place] [address] WBC (Bld) [#/Vol] 7.9 10*3/uL Normal 4.5-11.0 [facility] Comment on above: Performed By: #### B MP, CBC #### [facility] [address] [place] [address] Urine culture routineOrdered By: Victor Manuel Reynolds on 01-15-2022 Bacteria identified Cx Nom (U) No Growth 2 Days [facility] CT hip RT wo conon CT hip RT wo con [facility] [place] [address] [place] [address] CT Scan Report Signed Patient: Irineo Wallis Jr MR#: [id number] : 1940 Acct:[id number] Age/Sex: 81 / M ADM Date: 01/09/22 Loc: Room: [address] [place] [address] Type: ADM IN Attending Dr: Raji Ennis [...] Esa Cardoso M.D.01/14/2022 4:23 PM Dictation Location: [place] [address] Transcribed By: NOLVIA 01/14/22 0132 Dictated By: Esa Cardoso DO 01/14/22 1608 Signed By: 01/14/22 1623 [facility] XR hip RT 1Von 01-14-2022 XR hip RT [address] [facility] [place] [address] [place] [id number] XRay Report Signed Patient: Irineo Wallis Jr MR#: [id number] : 1940 Acct:[id number] Age/Sex: 81 / M ADM Date: 01/09/22 Loc: Room: [address] [place] [address] Type: ADM IN Attending Dr: Raji Ennis [...] RECOMMENDED.. Impression dictated by: Ortega Groves Jr., D.ODane01/14/2022 9:04 AM Dictation Location: [place] [address] Transcribed By: [facility] 01/14/22903 Dictated By: Ortega Groves Jr, 01/14/22902 Signed By: 01/14/22903 [facility] Automated erythrocytes count in urine sediment (number/area)Ordered By: Victor Manuel Reynolds on 01-13-2022 RBC Auto (Urine sed) [#/Area] 50-100 [HPF] 0-4 [facility] Automated leukocytes count i n urine sediment (number/area)Ordered By: Victor Manuel Reynolds on 01-13-2022 WBC Auto (Urine sed) [#/Area] 5-9 [HPF] 0-4 [facility] Basic Metabolic Panelon 11-0 Anion gap [Moles/Vol] 8.3 mmol/L Normal 6.0-15.0 [facility] Comment on above: Performed By: #### B MP, CBC #### [facility] [address] Calcium [Mass/Vol] 8.5 mg/dL Normal 8.2-10.2 [facility] Comment on above: Performed By: #### B MP, CBC #### [facility] [address] Chloride [Moles/Vol] 93 mmol/L Low 95-114 [facility] Comment on above: Performed By: #### B MP, CBC #### [facility] [address] CO2 [Moles/Vol] 32.6 mmol/L High 22.0-30.0 [facility] Comment on above: Performed By: #### B MP, CBC #### [facility] [address] Creatinine [Mass/Vol] 1.44 mg/dL High 0.64-1.27 [facility] Comment on above: Performed By: #### B MP, CBC #### [address] Creatinine Clr Calc Pharmacy 43.24 [facility] Comment on above: Result Comment: PERF ORMED BY: [place] [address] PATHOLOGIST [employer] JAYY SANTA M.D. Performed By: #### B MP, CBC #### [address] Estimated GFR ( Amarilis 57 [facility] Comment on above: Result Comment: GFR estimated reference range: According to KDOQI guidelines, <60 ml/min/1.73m2 is sufficient to diagnose a patient with chronic kidney disease. Performed By: #### B MP, CBC #### [address] Estimated GFR (Non- Am 47 Normal [facility] Comment on above: Performed By: #### B MP, CBC #### [facility] [address] Glucose [Mass/Vol] 92 mg/dL Normal 70-100 [facility] Comment on above: Result Comment: [place] Glucose Reference Range is dependent on time and content of last meal. Glucose of more than 200 mg/dL in a nonstressed, ambulatory subject supports the diagnosis of Diabetes Mellitus. ADA recommended reference range Performed By: #### B MP, CBC #### [facility] [address] Potassium [Moles/Vol] 3.9 mmol/L Normal 3.5-5.1 [facility] Comment on above: Performed By: #### B MP, CBC #### [facility] [address] Sodium [Moles/Vol] 130 mmol/L Low 136-146 [facility] Comment on above: Performed By: #### B MP, CBC #### [facility] [address] Urea nitrogen [Mass/Vol] 24 mg/dL High 9-23 [facility] Comment on above: Performed By: #### B MP, CBC #### [facility] [address] Bilirubin Test strip Ql (U)O rdered By: Victor Manuel Reynolds on 01-13-2022 Bilirubin Ql (U) Negative Negative [facility] Color Auto (U)Ordered By: Brigitte Reynolds on 01-13-2022 Color (U) Yellow Yellow [facility] Complete Blood Count Auto Di ffon 01-13-2022 Basophils (Bld) [#/Vol] 0.1 10*3/uL Normal 0.0-0.2 [facility] Comment on above: Result Comment: PERF ORMED BY: [facility] [address] [place] [address] PATHOLOGIST [employer] JAYY SANTA M.D. Performed By: #### B MP, CBC #### [facility] [address] [place] [address] [place] Basophils/100 WBC (Bld) 1.0 % Normal . [facility] Comment on above: Performed By: #### B MP, CBC #### [facility] [address] [place] [address] [place] Eosinophils (Bld) [#/Vol] 0.1 10*3/uL Normal 0.0-0.45 [facility] Comment on above: Performed By: #### B MP, CBC #### [facility] [address] Eosinophils/100 WBC (Bld) 0.7 % Normal . [facility] Comment on above: Performed By: #### B MP, CBC #### [address] Erythrocyte distribution width (RBC) [Ratio] 15.7 % High 12.0-14.8 [facility] Comment on above: Performed By: #### B MP, CBC #### [address] Hematocrit (Bld) [Volume fraction] 37.7 % Low 38.8-50.0 [facility] Comment on above: Performed By: #### B MP, CBC #### [facility] [address] Hemoglobin (Bld) [Mass/Vol] 12.4 g/dL Low 13.0-17.0 [facility] Comment on above: Performed By: #### B MP, CBC #### [facility] [address] [place] [address] [place] Lymphocytes (Bld) [#/Vol] 1.2 10*3/uL Normal 1.00-4.8 [facility] Comment on above: Performed By: #### B MP, CBC #### [facility] [address] [place] [address] [place] Lymphocytes/100 WBC (Bld) 13.0 % Normal . [facility] Comment on above: Performed By: #### B MP, CBC #### [facility] [address] MCH (RBC) [Entitic mass] 33.2 pg Normal 27.5-35.2 [facility] Comment on above: Performed By: #### B MP, CBC #### [address] MCV (RBC) [Entitic vol] 100.8 fL Normal 83.5-101 [facility] Comment on above: Performed By: #### B MP, CBC #### [address] Mean Corpuscular HGB Conc 33.0 g/dL Normal 32.5-35.6 [facility] Comment on above: Performed By: #### B MP, CBC #### [address] Monocytes (Bld) [#/Vol] 1.2 10*3/uL High 0.0-0.8 [facility] Comment on above: Performed By: #### B MP, CBC #### [address] Monocytes/100 WBC (Bld) 13.1 % Normal . [facility] Comment on above: Performed By: #### B MP, CBC #### [address] Neutrophils (Bld) [#/Vol] 6.8 10*3/uL Normal 1.8-7.7 [facility] Comment on above: Performed By: #### B MP, CBC #### [address] Neutrophils/100 WBC (Bld) 72.2 % Normal . [facility] Comment on above: Performed By: #### B MP, CBC #### [place] [address] [place] Nucleated RBC/100 WBC (Bld) [Ratio] 0.1 % Normal 0-0.5 [facility] Comment on above: Performed By: #### B MP, CBC #### [address] Platelet mean volume (Bld) [Entitic vol] 9.3 fL Normal 6.6-10.1 [facility] Comment on above: Performed By: #### B MP, CBC #### [facility] [address] Platelets (Bld) [#/Vol] 162 10*3/uL Significant change down 150-450 [facility] Comment on above: Performed By: #### B MP, CBC #### [facility] [address] RBC (Bld) [#/Vol] 3.74 10*6/uL Low 3.90-5.60 [facility] Comment on above: Performed By: #### B MP, CBC #### [address] WBC (Bld) [#/Vol] 9.4 10*3/uL Normal 4.5-11.0 [facility] Comment on above: Performed By: #### B MP, CBC #### [address] Dipstick and Microscopicon 1 03-15-2021 Appearance (U) Clear Normal Clear [facility] Comment on above: Order Comment: Name Collection Type:: Chou Catheter Performed By: #### C UU, ADDONUAPLUS #### [address] Bacteria,Urine None Seen Normal None Seen [facility] Comment on above: Order Comment: Name Collection Type:: Chou Catheter Performed By: #### C UU, ADDONUAPLUS #### [place] [address] [place] Bilirubin,Urine Negative Normal Negative [facility] Comment on above: Order Comment: Name Collection Type:: Chou Catheter Performed By: #### C UU, ADDONUAPLUS #### [address] Color (U) Yellow Normal Yellow [facility] Comment on above: Order Comment: Name Collection Type:: Chou Catheter Performed By: #### C UU, ADDONUAPLUS #### [facility] [address] [place] [address] [place] Glucose Ql (U) Normal Normal Normal [facility] Comment on above: Order Comment: Name Collection Type:: Chou Catheter Performed By: #### C UU, ADDONUAPLUS #### [facility] [address] [place] [address] [place] Hyaline Casts,Urine 0-8 Normal 0-8 [facility] Comment on above: Order Comment: Name Collection Type:: Chou Catheter Result Comment: PERF ORMED BY: [place] [address] PATHOLOGIST [employer] JAYY SANTA M.D. Performed By: #### C UU, ADDONUAPLUS #### [facility] [address] [place] [address] Ketones Ql (U) Negative Normal Negative [facility] Comment on above: Order Comment: Name Collection Type:: Chou Catheter Performed By: #### C UU, ADDONUAPLUS #### [facility] [address] [place] [address] [place] Leukocyte esterase Test strip Ql (U) 2+ High Negative [facility] Comment on above: Order Comment: Name Collection Type:: Chou Catheter Performed By: #### C UU, ADDONUAPLUS #### [facility] [address] [place] [address] [place] Nitrite,Urine Negative Normal Negative [facility] Comment on above: Order Comment: Name Collection Type:: Chou Catheter Performed By: #### C UU, ADDONUAPLUS #### [facility] [address] [place] [address] [place] Occult Blood,Urine 3+ High Negative [facility] Comment on above: Order Comment: Name Collection Type:: Chou Catheter Result Comment: PERF ORMED BY: [facility] [address] [place] [address] PATHOLOGIST [employer] JAYY SANTA M.D. Performed By: #### C UU, ADDONUAPLUS #### [facility] [address] [place] [address] pH (U) 5.5 [pH] Normal 5.0-9.0 [facility] Comment on above: Order Comment: Name Collection Type:: Chou Catheter Performed By: #### C UU, ADDONUAPLUS #### [facility] [address] [place] [address] Protein (U) [Mass/Vol] 30 mg/dL High Negative [facility] Comment on above: Order Comment: Name Collection Type:: Chou Catheter Performed By: #### C UU, ADDONUAPLUS #### [address] RBC,Urine 50-100 High 0-4 [facility] Comment on above: Order Comment: Name Collection Type:: Chou Catheter Performed By: #### C UU, ADDONUAPLUS #### [address] Specificy [place],Urine 1.012 Normal 1.001-1.03 0 [facility] Comment on above: Order Comment: Name Collection Type:: Chou Catheter Performed By: #### C UU, ADDONUAPLUS #### [address] Squamous Epithelial Cell,Urine 0-1 Normal 0-2 [facility] Comment on above: Order Comment: Name Collection Type:: Chou Catheter Performed By: #### C UU, ADDONUAPLUS #### [facility] [address] [place] [address] Urobilinogen,Urine Normal Normal Normal [facility] Comment on above: Order Comment: Name Collection Type:: Chou Catheter Performed By: #### C UU, ADDONUAPLUS #### [address] WBC,Urine 5-9 High 0-4 [facility] Comment on above: Order Comment: Name Collection Type:: Chou Catheter Performed By: #### C UU, ADDONUAPLUS #### [facility] [address] [place] [address] Ketones Auto test strip (U) [Mass/Vol]Ordered By: Victor Manuel Reynolds on 01-13-2022 Ketones (U) [Mass/Vol] Negative Negative [facility] - UrinalysisOrder ed By: Victor Manuel Reynolds on 01-13-2022 Hyaline casts LM Ql (Urine sed) 0-8 [LPF] 0-8 [facility] MR lumbar spine wo/w conon 1 03-15-2021 MR lumbar spine wo/w con [facility] [place] [address] [place] [address] MRI Report Signed Patient: Irineo Wallis Jr MR#: [id number] : 1940 Acct:[id number] Age/Sex: 81 / M ADM Date: 01/09/22 Loc: Room: [address] [place] [address] Type: ADM IN Attending Dr: Raji Ennis [...] Esa Cardoso M.D.01/13/2022 12:12 PM Dictation Location: [place] [address] Transcribed By: [facility] 01/13/22 1212 Dictated By: Esa Cardoso DO 01/13/22 1205 Signed By: 01/13/22 1212 Normal [facility] Nitrite Test strip Ql (U)Ord ered By: Victor Manuel Reynolds on 01-13-2022 Nitrite Ql (U) Negative Negative [facility] Protein Auto test strip (U) [Mass/Vol]Ordered By: Victor Manuel Reynolds on 01-13-2022 Protein (U) [Mass/Vol] 30 mg/dL Negative Fi [facility] Serum or plasma uric acid me asurement (mass/volume)Ordered By: Victor Manuel Reynolds on 01-13-2022 Urate [Mass/Vol] 4.7 mg/dL 2.6-7.2 [facility] Serum or plasma vancomycin m easurement (mass/volume)Ordered By: Raji Ennis on 01-13-2022 Vancomycin [Mass/Vol] 9.7 ug/mL 5.0-20.0 [facility] Comment on above: Last dose: - Specific gravity Auto test s trip (U) [Rel density]Ordered By: Victor Manuel Reynolds on 01-13-2022 Specific gravity (U) [Rel density] 1.012 1.001-1.03 0 [facility] Squamous epithelial cells de tection in urine sediment by light microscopyOrdered By: Victor Manuel Reynolds on 01-13-2022 Epithelial cells.squamous LM Ql (Urine sed) 0-1 [HPF] 0-2 [facility] Uric Acidon 01-13-2022 Urate [Mass/Vol] 4.7 mg/dL Normal 2.6-7.2 [facility] Comment on above: Result Comment: PERF ORMED BY: [place] [address] PATHOLOGIST [employer] JAYY SANTA M.D. Performed By: #### U FIONA #### [facility] [address] [place] [address] [place] Urine Cultureon 01-13-2022 Bacteria identified Cx Nom (U) No Growth 2 Days PERFORMED BY: [place] [address] PATHOLOGIST [employer] JAYY SANTA M.D. [facility] Comment on above: Performed By: #### C UU, ADDONUAPLUS #### [facility] [address] [place] [address] Urine bacteria detection by automated methodOrdered By: Victor Manuel Reynolds on 01-13-2022 Bacteria Auto Ql (U) None seen None Seen [facility] Urine clarity by refractomet ry automatedOrdered By: Victor Manuel Reynolds on 01-13-2022 Clarity Refractometry automated (U) Clear Clear [facility] Urine culture routineOrdered By: Victor Manuel Reynolds on 01-13-2022 Bacteria identified Cx Nom (U) No Growth 2 Days [facility] Urine glucose measurement by automated test strip (mass/volume)Ordered By: Victor Manuel Reynolds on 01-13-2022 Glucose Auto test strip (U) [Mass/Vol] Normal mg/dL Normal [facility] Urine hemoglobin detection b y automated test stripOrdered By: Victor Manuel Reynolds on 01-13-2022 Hemoglobin Auto test strip Ql (U) 3+ Negative [facility] Urine leukocyte esterase det ection by automated test stripOrdered By: Victor Manuel Reynolds on 01-13-2022 Leukocyte esterase Auto test strip Ql (U) 2+ Negative [facility] Urobilinogen Auto test strip (U) [Mass/Vol]Ordered By: Victor Manuel Reynolds on 01-13-2022 Urobilinogen (U) [Mass/Vol] Normal mg/dL Normal [facility] Vancomycin,Randomon 01-14-20 Vancomycin,Random 9.7 ug/mL Normal 5.0-20.0 [facility] Comment on above: Order Comment: Date of last dose?: [id number] Time of last dose?: 1529 Result Comment: Last dose: - PERFORMED BY: [place] [address] PATHOLOGIST [employer] JAYY SANTA M.D. Performed By: #### C OVID-19 MARS, SOFIANEG #### [place] [address] [place] pH Auto test strip (U)Ordere d By: Victor Manuel Reynolds on 01-13-2022 pH (U) 5.5 [pH] 5.0-9.0 [facility] Bacterial blood cultureOrder ed By: Raji Ennis on 01-12-2022 Bacteria identified Cx Nom (Bld) NO GROWTH 5 DAYS [facility] Basic Metabolic Panelon Anion gap [Moles/Vol] 10.4 mmol/L Normal 6.0-15.0 [facility] Comment on above: Performed By: #### C BC, BMP #### [facility] [address] [place] [address] [place] Calcium [Mass/Vol] 8.9 mg/dL Normal 8.2-10.2 [facility] Comment on above: Performed By: #### C BC, BMP #### [facility] [address] [place] [address] [place] Chloride [Moles/Vol] 94 mmol/L Low 95-114 [facility] Comment on above: Performed By: #### C BC, BMP #### [facility] [address] [place] [address] [place] CO2 [Moles/Vol] 31.4 mmol/L High 22.0-30.0 [facility] Comment on above: Performed By: #### C BC, BMP #### [place] [address] [place] Creatinine [Mass/Vol] 1.53 mg/dL High 0.64-1.27 [facility] Comment on above: Performed By: #### C BC, BMP #### [address] Creatinine Clr Calc Pharmacy 40.96 [facility] Comment on above: Result Comment: PERF ORMED BY: [place] [address] PATHOLOGIST [employer] JAYY SANTA M.D. Performed By: #### C BC, BMP #### [address] Estimated GFR ( Amarilis 53 [facility] Comment on above: Result Comment: GFR estimated reference range: According to KDOQI guidelines, <60 ml/min/1.73m2 is sufficient to diagnose a patient with chronic kidney disease. Performed By: #### C BC, BMP #### [address] Estimated GFR (Non- Am 44 [facility] Comment on above: Performed By: #### C BC, BMP #### [address] Glucose [Mass/Vol] 99 mg/dL Normal 70-100 [facility] Comment on above: Result Comment: [place] Glucose Reference Range is dependent on time and content of last meal. Glucose of more than 200 mg/dL in a nonstressed, ambulatory subject supports the diagnosis of Diabetes Mellitus. ADA recommended reference range Performed By: #### C BC, BMP #### [address] Potassium [Moles/Vol] 3.8 mmol/L Normal 3.5-5.1 [facility] Comment on above: Performed By: #### C BC, BMP #### [place] [address] [place] Sodium [Moles/Vol] 132 mmol/L Low 136-146 [facility] Comment on above: Performed By: #### C BC, BMP #### [address] Urea nitrogen [Mass/Vol] 22 mg/dL Normal 9-23 [facility] Comment on above: Performed By: #### C BC, BMP #### [facility] [address] [place] [address] [place] Blood Cultureon 01-12-2022 Bacteria identified Cx Nom (Bld) NO GROWTH 5 DAYS PERFORMED BY: [place] [address] PATHOLOGIST [employer] JAYY SANTA M.D. [facility] Comment on above: Performed By: #### C BC, BMP #### [address] Bacteria identified Cx Nom (Bld) NO GROWTH 5 DAYS PERFORMED BY: [place] [address] PATHOLOGIST [employer] JAYY SANTA M.D. [facility] Comment on above: Performed By: #### C BC, BMP #### [address] C reactive protein [Mass/vol ume] in Serum or PlasmaOrdered By: Raji Ennis on 01-12-2022 CRP [Mass/Vol] 8.4 mg/dL 0.0-1.0 [facility] C-Reactive Proteinon 022 C-Reactive Protein 8.4 mg/dL High 0.0-1.0 [facility] Comment on above: Order Comment: Comme nt can use prior labs if possible Result Comment: PERF ORMED BY: [place] [address] PATHOLOGIST [employer] JAYY SANTA M.D. Performed By: #### C BC, BMP #### [facility] [address] [place] [address] Complete Blood Count Auto Di ffon 01-12-2022 Basophils (Bld) [#/Vol] 0.1 10*3/uL Normal 0.0-0.2 [facility] Comment on above: Result Comment: PERF ORMED BY: [place] [address] PATHOLOGIST [employer] JIANLAN SUN M.D. Performed By: #### C BC, BMP #### [facility] [address] [place] [address] [place] Basophils/100 WBC (Bld) 0.5 % Normal . [facility] Comment on above: Performed By: #### C BC, BMP #### [facility] [address] Eosinophils (Bld) [#/Vol] 0.2 10*3/uL Normal 0.0-0.45 [facility] Comment on above: Performed By: #### C BC, BMP #### [facility] [address] Eosinophils/100 WBC (Bld) 1.9 % Normal . [facility] Comment on above: Performed By: #### C BC, BMP #### [facility] [address] Erythrocyte distribution width (RBC) [Ratio] 15.5 % High 12.0-14.8 [facility] Comment on above: Performed By: #### C BC, BMP #### [facility] [address] Hematocrit (Bld) [Volume fraction] 38.8 % Normal 38.8-50.0 [facility] Comment on above: Performed By: #### C BC, BMP #### [facility] [address] Hemoglobin (Bld) [Mass/Vol] 12.9 g/dL Low 13.0-17.0 [facility] Comment on above: Performed By: #### C BC, BMP #### [facility] [address] [place] [address] [place] Lymphocytes (Bld) [#/Vol] 1.2 10*3/uL Normal 1.00-4.8 [facility] Comment on above: Performed By: #### C BC, BMP #### [facility] [address] [place] [address] [place] Lymphocytes/100 WBC (Bld) 12.2 % Normal . [facility] Comment on above: Performed By: #### C BC, BMP #### [facility] [address] [place] [address] [place] MCH (RBC) [Entitic mass] 33.6 pg Normal 27.5-35.2 [facility] Comment on above: Performed By: #### C BC, BMP #### [facility] [address] MCV (RBC) [Entitic vol] 100.8 fL Normal 83.5-101 [facility] Comment on above: Performed By: #### C BC, BMP #### [facility] [address] Mean Corpuscular HGB Conc 33.3 g/dL Normal 32.5-35.6 [facility] Comment on above: Performed By: #### C BC, BMP #### [facility] [address] Monocytes (Bld) [#/Vol] 0.9 10*3/uL High 0.0-0.8 [facility] Comment on above: Performed By: #### C BC, BMP #### [place] [address] [place] Monocytes/100 WBC (Bld) 9.1 % Normal . [facility] Comment on above: Performed By: #### C BC, BMP #### [facility] [address] Neutrophils (Bld) [#/Vol] 7.7 10*3/uL Normal 1.8-7.7 [facility] Comment on above: Performed By: #### C BC, BMP #### [facility] [address] [place] [address] [place] Neutrophils/100 WBC (Bld) 76.3 % Normal . [facility] Comment on above: Performed By: #### C BC, BMP #### [facility] [address] [place] [address] [place] Nucleated RBC/100 WBC (Bld) [Ratio] 0.1 % Normal 0-0.5 [facility] Comment on above: Performed By: #### C BC, BMP #### [facility] [address] [place] [address] Platelet mean volume (Bld) [Entitic vol] 8.8 fL Normal 6.6-10.1 [facility] Comment on above: Performed By: #### C BC, BMP #### [address] Platelets (Bld) [#/Vol] 214 10*3/uL Normal 150-450 [facility] Comment on above: Performed By: #### C BC, BMP #### [address] RBC (Bld) [#/Vol] 3.85 10*6/uL Low 3.90-5.60 [facility] Comment on above: Performed By: #### C BC, BMP #### [address] WBC (Bld) [#/Vol] 10.1 10*3/uL Normal 4.5-11.0 [facility] Comment on above: Performed By: #### C KARTIK, BMP #### [place] [address] [place] XR chest 1V portableon 01-12 XR chest 1V portable [facility] [place] [address] [place] [address] XRay Report Signed Patient: Irineo Wallis Jr MR#: [id number] : 1940 Acct:[id number] Age/Sex: 81 / M ADM Date: 01/09/22 Loc: Room: [address] [place] [address] Type: ADM IN Attending Dr: Raji Ennis [...] Esa Cardoso M.D.01/12/2022 12:47 PM Dictation Location: [place] [address] Transcribed By: [facility] 01/12/22 124 Dictated By: Esa Cardoso DO 01/12/22 1245 Signed By: 01/12/22 124 [facility] Albumin [Mass/volume] in Ser um or PlasmaOrdered By: Vikas Mane on 01-11-2022 Albumin [Mass/Vol] 2.9 g/dL 2.9-4.4 [facility] Basic Metabolic Panelon Anion gap [Moles/Vol] 10.6 mmol/L Normal 6.0-15.0 [facility] Comment on above: Performed By: #### C OVID-19 MARS, SOFIANEG #### [facility] [address] Calcium [Mass/Vol] 8.7 mg/dL Normal 8.2-10.2 [facility] Comment on above: Performed By: #### C OVID-19 MARS, SOFIANEG #### [facility] [address] [place] [address] [place] Chloride [Moles/Vol] 98 mmol/L Normal 95-114 [facility] Comment on above: Performed By: #### C OVID-19 MARS, SOFIANEG #### [facility] [address] [place] [id number] [place] CO2 [Moles/Vol] 28.8 mmol/L Normal 22.0-30.0 [facility] Comment on above: Performed By: #### C OVID-19 MARS, SOFIANEG #### [facility] [address] [place] [address] [place] Creatinine [Mass/Vol] 1.49 mg/dL High 0.64-1.27 [facility] Comment on above: Performed By: #### C OVID-19 MARS SOFIANEG #### [facility] [address] [place] [address] [place] Creatinine Clr Calc Pharmacy 42.37 [facility] Comment on above: Result Comment: PERF ORMED BY: [place] [address] PATHOLOGIST [employer] JAYY SANTA M.D. Performed By: #### C OVID-19 MARS, SOFIANEG #### [facility] [address] [place] [address] Estimated GFR ( Amarilis 55 [facility] Comment on above: Result Comment: GFR estimated reference range: According to KDOQI guidelines, <60 ml/min/1.73m2 is sufficient to diagnose a patient with chronic kidney disease. Performed By: #### C OVID-19 MARS, SOFIANEG #### [address] Estimated GFR (Non- Am 45 [facility] Comment on above: Performed By: #### C OVID-19 MARS, SOFIANEG #### [address] Glucose [Mass/Vol] 90 mg/dL Normal 70-100 [facility] Comment on above: Result Comment: [place] Glucose Reference Range is dependent on time and content of last meal. Glucose of more than 200 mg/dL in a nonstressed, ambulatory subject supports the diagnosis of Diabetes Mellitus. ADA recommended reference range Performed By: #### C OVID-19 MARS, SOFIANEG #### [facility] [address] [place] [address] Potassium [Moles/Vol] 3.4 mmol/L Low 3.5-5.1 [facility] Comment on above: Performed By: #### C OVID-19 MARS, SOFIANEG #### [facility] [address] [place] [address] Sodium [Moles/Vol] 134 mmol/L Low 136-146 [facility] Comment on above: Performed By: #### C OVID-19 MARS, SOFIANEG #### [facility] [address] [place] [address] Urea nitrogen [Mass/Vol] 24 mg/dL High 9-23 [facility] Comment on above: Performed By: #### C OVID-19 MARS, SOFIANEG #### [address] Complete Blood Count Auto Di ffon 01-11-2022 Basophils (Bld) [#/Vol] 0.1 10*3/uL Normal 0.0-0.2 [facility] Comment on above: Result Comment: PERF ORMED BY: [place] [address] PATHOLOGIST [employer] JAYY SANTA M.D. Performed By: #### C BC, BMP #### [address] Basophils/100 WBC (Bld) 0.7 % Normal . [facility] Comment on above: Performed By: #### C BC, BMP #### [address] Eosinophils (Bld) [#/Vol] 0.2 10*3/uL Normal 0.0-0.45 [facility] Comment on above: Performed By: #### C BC, BMP #### [address] Eosinophils/100 WBC (Bld) 2.2 % Normal . [facility] Comment on above: Performed By: #### C BC, BMP #### [address] Erythrocyte distribution width (RBC) [Ratio] 15.5 % High 12.0-14.8 [facility] Comment on above: Performed By: #### C BC, BMP #### [address] Hematocrit (Bld) [Volume fraction] 38.1 % Low 38.8-50.0 [facility] Comment on above: Performed By: #### C BC, BMP #### [address] Hemoglobin (Bld) [Mass/Vol] 12.7 g/dL Low 13.0-17.0 [facility] Comment on above: Performed By: #### C BC, BMP #### [address] Lymphocytes (Bld) [#/Vol] 1.2 10*3/uL Normal 1.00-4.8 [facility] Comment on above: Performed By: #### C BC, BMP #### [facility] [address] Lymphocytes/100 WBC (Bld) 13.7 % Normal . [facility] Comment on above: Performed By: #### C BC, BMP #### [address] MCH (RBC) [Entitic mass] 33.4 pg Normal 27.5-35.2 [facility] Comment on above: Performed By: #### C BC, BMP #### [address] MCV (RBC) [Entitic vol] 100.6 fL Normal 83.5-101 [facility] Comment on above: Performed By: #### C BC, BMP #### [address] Mean Corpuscular HGB Conc 33.3 g/dL Normal 32.5-35.6 [facility] Comment on above: Performed By: #### C BC, BMP #### [place] [address] [place] Monocytes (Bld) [#/Vol] 0.8 10*3/uL Normal 0.0-0.8 [facility] Comment on above: Performed By: #### C BC, BMP #### [place] [address] [place] Monocytes/100 WBC (Bld) 9.6 % Normal . [facility] Comment on above: Performed By: #### C BC, BMP #### [address] Neutrophils (Bld) [#/Vol] 6.3 10*3/uL Normal 1.8-7.7 [facility] Comment on above: Performed By: #### C BC, BMP #### [facility] [address] Neutrophils/100 WBC (Bld) 73.8 % Normal . [facility] Comment on above: Performed By: #### C BC, BMP #### [facility] [address] Nucleated RBC/100 WBC (Bld) [Ratio] 0.0 % Normal 0-0.5 [facility] Comment on above: Performed By: #### C BC, BMP #### [facility] [address] Platelet mean volume (Bld) [Entitic vol] 8.8 fL Normal 6.6-10.1 [facility] Comment on above: Performed By: #### C BC, BMP #### [facility] [address] [place] [address] [place] Platelets (Bld) [#/Vol] 177 10*3/uL Normal 150-450 [facility] Comment on above: Performed By: #### C BC, BMP #### [facility] [address] [place] [address] [place] RBC (Bld) [#/Vol] 3.78 10*6/uL Low 3.90-5.60 [facility] Comment on above: Performed By: #### C BC, BMP #### [facility] [address] [place] [address] [place] WBC (Bld) [#/Vol] 8.5 10*3/uL Normal 4.5-11.0 [facility] Comment on above: Performed By: #### C BC, BMP #### [facility] [address] ECH echo transthoracicon ECH echo transthoracic [facility] [address] [place] [address] Echocardiogram Signed Patient: KadiIrineo Carson Murray MR#: [id number] : 1940 Acct:[id number] Age/Sex: 81 / M ADM Date: 01/09/22 Loc: Room: [address] [place] [address] Type: DIS IN Attending Dr: Raji Ennis [...] cm Transcribed By: SCV Performed At: 01/11/22 0765 Signed By: Robert Thorne MD 01/11/22 0946 Normal [facility] IgA [Mass/volume] in Serum o r PlasmaOrdered By: Vikas Mane on 01-11-2022 IgA [Mass/Vol] 171 mg/dL 61-437 [facility] IgG [Mass/volume] in Serum o r PlasmaOrdered By: Vikas Mane on 01-11-2022 IgG [Mass/Vol] 816 mg/dL 603-1613 [facility] IgM [Mass/volume] in Serum o r PlasmaOrdered By: Vikas Mane on 01-11-2022 IgM [Mass/Vol] 105 mg/dL 15-143 [facility] Comment on above: Performed at: [facility] [address] [id number] Director: Patrick Ortiz PhD, Phone: [phone] Immunofixation,Serumon 01-11 Immunofixation, Serum Normal . [facility] Comment on above: Result Comment: No m onoclonality detected. Performed By: #### B MP, CBC #### [facility] [address] Immunoglobulin A, Serum 171 mg/dL Normal 61-437 [facility] Comment on above: Performed By: #### B MP, CBC #### [facility] [address] Immunoglobulin G 816 mg/dL Normal 603-1613 [facility] Comment on above: Performed By: #### B MP, CBC #### [facility] [address] Immunoglobulin M, Serum 105 mg/dL Normal 15-143 [facility] Comment on above: Result Comment: Perf ormed at: [facility] [place] [id number] [place] [id number] Cytogeneticist: Patrick Ortiz PhD, Phone: [phone] Performed By: #### B MP, CBC #### [facility] [address] [place] [address] No Panel InformationOrdered By: Vikas Mane on 01-11-2022 Protein Electrophoresis M-Franky Not observed g/dL Not Observed [facility] Protein Electrophoresis Note See comment . [facility] Comment on above: Protein electrophore sis scan will follow via computer,mail, or lab nurse delivery.Performed at: [employer] [id number] Director: Patrick Ortiz PhD, Phone: [phone] Serum Immunofixation See comment . [facility] Comment on above: No monoclonality det ected. Protein Electrophoresis, Ser umon 01-11-2022 Albumin [Mass/Vol] 2.9 g/dL Normal 2.9-4.4 [facility] Comment on above: Performed By: #### B MP, CBC #### [facility] [address] [place] [address] Albumin/Globulin [Mass ratio] 1.2 {ratio} Normal 0.7-1.7 [facility] Comment on above: Performed By: #### B MP, CBC #### [facility] [address] Hptkx-7-Gmnwwrdg 0.4 g/dL Normal 0.0-0.4 [facility] Comment on above: Performed By: #### B MP, CBC #### [facility] [address] Yxjxw-4-Jqqhvkzr 0.7 g/dL Normal 0.4-1.0 [facility] Comment on above: Performed By: #### B MP, CBC #### [address] Beta Globulin 0.6 g/dL Low 0.7-1.3 [facility] Comment on above: Performed By: #### B MP, CBC #### [address] Gamma Globulin 0.8 g/dL Normal 0.4-1.8 [facility] Comment on above: Performed By: #### B MP, CBC #### [address] Globulin (S) [Mass/Vol] 2.4 g/dL Normal 2.2-3.9 [facility] Comment on above: Performed By: #### B MP, CBC #### [address] M-Franky Not Observed Normal Not Observed [facility] Comment on above: Performed By: #### B MP, CBC #### [address] Protein [Mass/Vol] 5.3 g/dL Low 6.0-8.5 [facility] Comment on above: Performed By: #### B MP, CBC #### [address] SPE-Note Normal . [facility] Comment on above: Result Comment: Prot ein electrophoresis scan will follow via computer, mail, or lab nurse delivery. Performed at: [address] [id number] Cytogeneticist: Patrick Ortiz PhD, Phone: [phone] PERFORMED BY: [place] [address] PATHOLOGIST [employer] JAYY SANTA M.D. Performed By: #### B MP, CBC #### [address] Protein [Mass/volume] in Ser um or PlasmaOrdered By: Vikas Mane on 01-11-2022 Protein [Mass/Vol] 5.3 g/dL 6.0-8.5 [facility] Serum globulin measurement ( mass/volume)Ordered By: Vikas Mane on 01-11-2022 Globulin (S) [Mass/Vol] 2.4 g/dL 2.2-3.9 [facility] Serum or plasma albumin/glob ulin mass ratioOrdered By: Vikas Mane on 01-11-2022 Albumin/Globulin [Mass ratio] 1.2 {ratio} 0.7-1.7 [facility] Serum or plasma alpha 1 glob ulin measurement by electrophoresis (mass/volume)Ordered By: Vikas Mane on 01-11-2022 Alpha 1 globulin Elph [Mass/Vol] 0.4 g/dL 0.0-0.4 [facility] Serum or plasma alpha 2 glob ulin measurement by electrophoresis (mass/volume)Ordered By: Vikas Mane on 01-11-2022 Alpha 2 globulin Elph [Mass/Vol] 0.7 g/dL 0.4-1.0 [facility] Serum or plasma beta globuli n measurement by electrophoresis (mass/volume)Ordered By: Vikas Mane on 01-11-2022 Beta globulin Elph [Mass/Vol] 0.6 g/dL 0.7-1.3 [facility] Serum or plasma gamma globul in measurement by electrophoresis (mass/volume)Ordered By: Vikas Mane on 01-11-2022 Gamma globulin Elph [Mass/Vol] 0.8 g/dL 0.4-1.8 [facility] US carotid doppler BIon 11-0 US carotid doppler BI [facility] [place] [address] [place] [address] Ultrasound Report Signed Patient: Irineo Wallis Jr MR#: [id number] : 1940 Acct:[id number] Age/Sex: 81 / M ADM Date: 01/09/22 Loc: Room: [address] [place] [address] Type: ADM IN Attending Dr: Dharmesh Zavala [...] Deo Jamison MD01/11/2022 10:29 AM Dictation Location: [place] Tech: Criss Valenciasuresh Transcribed By: [facility] 01/11/22 1029 Dictated By: Deo Jamison MD 01/11/22 1029 Signed By: 01/11/22 1029 Normal [facility] A1C with Estimated Average G gama 01-10-2022 Glucose [Mass/Vol] 114 mg/dL Normal [facility] Comment on above: Result Comment: PERF ORMED BY: [place] [address] PATHOLOGIST [employer] JAYY SANTA M.D. Performed By: #### C BC, BMP #### [facility] [address] [place] [address] HbA1c (Bld) [Mass fraction] 5.6 % Normal 4.3-5.6 [facility] Comment on above: Result Comment: Incr eased risk for diabetes: 5.7 - 6.4 diabetes: >6.4 glycemic control for adults with diabetes: <7.0 Performed By: #### C BC, BMP #### [facility] [address] [place], [place] [id number] [facility] B-Type Natriuretic Peptideon 01-10-2022 Natriuretic peptide B (Bld) [Mass/Vol] 679.0 pg/mL High 5-100 [facility] Comment on above: Result Comment: PERF ORMED BY: [place] [address] PATHOLOGIST [employer] JAYY SANTA M.D. Performed By: #### B MP, CBC #### [facility] [address] [place], [place] [address] [facility] Basic Metabolic Panelon 11-0 Anion gap [Moles/Vol] 12.1 mmol/L Normal 6.0-15.0 [facility] Comment on above: Performed By: #### C BC, BMP #### [facility] [address] Calcium [Mass/Vol] 8.6 mg/dL Normal 8.2-10.2 [facility] Comment on above: Performed By: #### C BC, BMP #### [facility] [address] Chloride [Moles/Vol] 99 mmol/L Normal 95-114 [facility] Comment on above: Performed By: #### C BC, BMP #### [facility] [address] CO2 [Moles/Vol] 26.7 mmol/L Normal 22.0-30.0 [facility] Comment on above: Performed By: #### C BC, BMP #### [address] Creatinine [Mass/Vol] 1.60 mg/dL High 0.64-1.27 [facility] Comment on above: Performed By: #### C BC, BMP #### [place] [address] [place] Creatinine Clr Calc Pharmacy 39.46 [facility] Comment on above: Performed By: #### C BC, BMP #### [address] Estimated GFR ( Amarilis 51 [facility] Comment on above: Result Comment: GFR estimated reference range: According to KDOQI guidelines, <60 ml/min/1.73m2 is sufficient to diagnose a patient with chronic kidney disease. Performed By: #### C BC, BMP #### [address] Estimated GFR (Non- Am 42 [facility] Comment on above: Performed By: #### C BC, BMP #### [place] [address] [place] Glucose [Mass/Vol] 97 mg/dL Normal 70-100 [facility] Comment on above: Result Comment: [place] Glucose Reference Range is dependent on time and content of last meal. Glucose of more than 200 mg/dL in a nonstressed, ambulatory subject supports the diagnosis of Diabetes Mellitus. ADA recommended reference range Performed By: #### C BC, BMP #### [facility] [address] [place] [address] [place] Potassium [Moles/Vol] 3.8 mmol/L Normal 3.5-5.1 [facility] Comment on above: Performed By: #### C BC, BMP #### [facility] [address] Sodium [Moles/Vol] 134 mmol/L Low 136-146 [facility] Comment on above: Performed By: #### C BC, BMP #### [facility] [address] Urea nitrogen [Mass/Vol] 23 mg/dL Normal 9-23 [facility] Comment on above: Performed By: #### C BC, BMP #### [address] Complete Blood Count Auto Di ffon 01-10-2022 Basophils (Bld) [#/Vol] 0.1 10*3/uL Normal 0.0-0.2 [facility] Comment on above: Result Comment: PERF ORMED BY: [place] [address] PATHOLOGIST [employer] JAYY SANTA M.D. Performed By: #### C BC, BMP #### [facility] [address] [place] [address] [place] Basophils/100 WBC (Bld) 1.0 % Normal . [facility] Comment on above: Performed By: #### C BC, BMP #### [facility] [address] [place] [address] [place] Eosinophils (Bld) [#/Vol] 0.0 10*3/uL Normal 0.0-0.45 [facility] Comment on above: Performed By: #### C BC, BMP #### [facility] [address] Eosinophils/100 WBC (Bld) 0.3 % Normal . [facility] Comment on above: Performed By: #### C BC, BMP #### [facility] [address] Erythrocyte distribution width (RBC) [Ratio] 15.8 % High 12.0-14.8 [facility] Comment on above: Performed By: #### C BC, BMP #### [address] Hematocrit (Bld) [Volume fraction] 37.7 % Low 38.8-50.0 [facility] Comment on above: Performed By: #### C BC, BMP #### [address] Hemoglobin (Bld) [Mass/Vol] 12.5 g/dL Low 13.0-17.0 [facility] Comment on above: Performed By: #### C BC, BMP #### [address] Lymphocytes (Bld) [#/Vol] 1.0 10*3/uL Normal 1.00-4.8 [facility] Comment on above: Performed By: #### C BC, BMP #### [address] Lymphocytes/100 WBC (Bld) 10.5 % Normal . [facility] Comment on above: Performed By: #### C BC, BMP #### [address] MCH (RBC) [Entitic mass] 33.6 pg Normal 27.5-35.2 [facility] Comment on above: Performed By: #### C BC, BMP #### [address] MCV (RBC) [Entitic vol] 101.5 fL High 83.5-101 [facility] Comment on above: Performed By: #### C BC, BMP #### [address] Mean Corpuscular HGB Conc 33.1 g/dL Normal 32.5-35.6 [facility] Comment on above: Performed By: #### C BC, BMP #### [address] Monocytes (Bld) [#/Vol] 1.0 10*3/uL High 0.0-0.8 [facility] Comment on above: Performed By: #### C BC, BMP #### [place] [address] [place] Monocytes/100 WBC (Bld) 10.7 % Normal . [facility] Comment on above: Performed By: #### C KARTIK, BMP #### [address] Neutrophils (Bld) [#/Vol] 7.3 10*3/uL Normal 1.8-7.7 [facility] Comment on above: Performed By: #### C KARTIK, BMP #### [place] [address] [place] Neutrophils/100 WBC (Bld) 77.5 % Normal . [facility] Comment on above: Performed By: #### C KARTIK, BMP #### [place] [address] [place] Nucleated RBC/100 WBC (Bld) [Ratio] 0.0 % Normal 0-0.5 [facility] Comment on above: Performed By: #### C BC, BMP #### [place] [address] [place] Platelet mean volume (Bld) [Entitic vol] 8.6 fL Normal 6.6-10.1 [facility] Comment on above: Performed By: #### C BC, BMP #### [place] [address] [place] Platelets (Bld) [#/Vol] 167 10*3/uL Normal 150-450 [facility] Comment on above: Performed By: #### C BC, BMP #### [place] [id number] [place] RBC (Bld) [#/Vol] 3.71 10*6/uL Low 3.90-5.60 [facility] Comment on above: Performed By: #### C BC, BMP #### [facility] [address] WBC (Bld) [#/Vol] 9.5 10*3/uL Normal 4.5-11.0 [facility] Comment on above: Performed By: #### C BC, BMP #### [facility] [address] ECG 12 lead ECGon 01-10-2022 ECG [address] [facility] [place] [address] [place] [address] Electrocardiograph Report Signed Patient: Irineo Wallis Jr MR#: [id number] : 1940 Acct:[id number] Age/Sex: 81 / M ADM Date: 01/09/22 Loc: Room: [address] [place] [address] Type: DIS IN Attending Dr: Raji Ennis [...] no longer present Confirmed by RAJENDRA TIDWELL FACAMRV ([id number]) on 01/10/2022 10:31:45 AM Referred By: Electronically Signed By:MARV DREW MD FACC Transcribed By: MUS Signed By Marv Drew MD, FACC 01/10/22 1031 Normal [facility] Folate [Mass/volume] in Seru m or PlasmaOrdered By: Dharmesh Zavala on 01-10-2022 Folate [Mass/Vol] 8.8 ng/mL >5.9 [facility] Comment on above: Folate reference ran ge: >5.9 ng/mlThe WHO technical consultation on folate and vitamin [id number] has determined that folate concentrations lessthan 4 ng/ml are considered deficient. Glucose mean value [Mass/vol ume] in Blood Estimated from glycated hemoglobinOrdered By: Dharmesh Zavala on 01-10-2022 Average glucose Estimated from glycated hemoglobin (Bld) [Mass/Vol] 114 mg/dL [facility] Hemoglobin A1c percentageOrd ered By: Dharmesh Zavala on 01-10-2022 HbA1c (Bld) [Mass fraction] 5.6 % 4.3-5.6 [facility] Comment on above: Increased risk for d iabetes: 5.7 - 6.4diabetes: >6.4glycemic control for adults with diabetes: <7.0 Ironon 01-10-2022 Iron [Mass/Vol] 13 ug/dL Low 40-160 [facility] Comment on above: Performed By: #### C BC, BMP #### [address] Iron [Mass/volume] in Serum or PlasmaOrdered By: Dharmesh Zavala on 01-10-2022 Iron [Mass/Vol] 13 ug/dL 40-160 [facility] Laboratory - Chemistry and C hemistry - challengeOrdered By: Dharmesh Zavala on 01-10-2022 Cobalamin (Vitamin B12) [Mass/Vol] 458 pg/mL 180-914 [facility] Magnesium [Mass/Vol] 1.9 mg/dL 1.6-2.6 [facility] Natriuretic peptide B (Bld) [Mass/Vol] 679.0 pg/mL 5-100 [facility] Magnesiumon 01-10-2022 Magnesium [Mass/Vol] 1.9 mg/dL Normal 1.6-2.6 [facility] Comment on above: Performed By: #### C BC, BMP #### [facility] [address] [place] [address] [facility] TSH DL <= 0.005 mIU/L QnOrde red By: Dharmesh Zavala on 01-10-2022 TSH Qn 3.99 m[IU]/L 0.45-5.33 [facility] Thyroid Stimulating Hormoneo n 01-10-2022 TSH Qn 3.99 m[IU]/L Normal 0.45-5.33 [facility] Comment on above: Result Comment: PERF ORMED BY: [place] [address] PATHOLOGIST [employer] JAYY ASNTA M.D. Performed By: #### C KARTIK, BMP #### [place] [id number] [facility] Troponin I High Sensitivityo n 01-10-2022 Troponin I High Sensitivity 110 pg/mL Off scale high 0-20 [facility] Comment on above: Result Comment: Resu lts called at 0808 on 01/10/22 PERFORMED BY: [place] [address] PATHOLOGIST [employer] JAYY SANTA M.D. Performed By: #### C KARTIK, BMP #### [place] [id number] [facility] Troponin I.cardiac [Mass/vol ume] in Serum or Plasma by High sensitivity methodOrdered By: Dharmesh Zavala on 01-10-2022 Troponin I.cardiac High sensitivity method [Mass/Vol] 110 pg/mL 0-20 [facility] Comment on above: Results calledat 080 8 on 01/10/22 US renal BIon 01-10-[address] [facility] [address] [place] [address] [place] [address] Ultrasound Report Signed Patient: Irineo Wallis Jr MR#: [id number] : 1940 Acct:[id number] Age/Sex: 81 / M ADM Date: 01/09/22 Loc: Room: [address] [place] [address] Type: ADM IN Attending Dr: Dharmesh Zavala [...] Esa Cardoso M.D.01/10/2022 9:07 AM Dictation Location: [place] [address] Tech: Criss John Transcribed By: NOLVIA 01/10/22906 Dictated By: Esa Cardoso DO 01/10/22905 Signed By: 01/10/22906 Normal [facility] Vit. B12/Folate Profileon Cobalamin (Vitamin B12) [Mass/Vol] 458 pg/mL Normal 180-914 [facility] Comment on above: Performed By: #### C BC, BMP #### [facility] [address] [place] [address] Folate 8.8 ng/mL Normal >5.9 [facility] Comment on above: Result Comment: [place]ette te reference range: >5.9 ng/ml The WHO technical consultation on folate and vitamin b12 deficiencies has determined that folate concentrations less than 4 ng/ml are considered deficient. Performed By: #### C BC, BMP #### [facility] [address] [place] [address] Activated partial thrombopla stin time (aPTT) in platelet poor plasma by coagulation aOrdered By: Victor Manuel Paiz on 01-09-2022 aPTT Coag (PPP) [Time] 39.1 s 25.1-36.5 [facility] Automated erythrocytes count in urine sediment (number/area)Ordered By: Victor Manuel Paiz on 01-09-2022 RBC Auto (Urine sed) [#/Area] 0-1 [HPF] 0-4 [facility] Automated leukocytes count i n urine sediment (number/area)Ordered By: Victor Manuel Paiz on 01-09-2022 WBC Auto (Urine sed) [#/Area] 5-9 [HPF] 0-4 [facility] B-Type Natriuretic Peptideon 01-09-2022 Natriuretic peptide B (Bld) [Mass/Vol] 1810.0 pg/mL High 5-100 [facility] Comment on above: Result Comment: PERF ORMED BY: [place] [address] PATHOLOGIST [employer] JAYY SANTA M.D. Performed By: #### B MP, CBC #### [facility] [address] [place] [address] Basic Metabolic Panelon Anion gap [Moles/Vol] 14.9 mmol/L Normal 6.0-15.0 [facility] Comment on above: Performed By: #### B MP, CBC #### [facility] [address] [place] [address] Calcium [Mass/Vol] 9.2 mg/dL Normal 8.2-10.2 [facility] Comment on above: Performed By: #### B MP, CBC #### [facility] [address] [place] [address] Chloride [Moles/Vol] 100 mmol/L Normal 95-114 [facility] Comment on above: Performed By: #### B MP, CBC #### [facility] [address] [place] [address] CO2 [Moles/Vol] 25.2 mmol/L Normal 22.0-30.0 [facility] Comment on above: Performed By: #### B MP, CBC #### [facility] [address] [place] [address] [place] Creatinine [Mass/Vol] 1.62 mg/dL High 0.64-1.27 [facility] Comment on above: Performed By: #### B MP, CBC #### [facility] [address] [place] [address] [place] Creatinine Clr Calc Pharmacy 39.44 Normal [facility] Comment on above: Result Comment: PERF ORMED BY: [place] [address] PATHOLOGIST [employer] JAYY SANTA M.D. Performed By: #### B MP, CBC #### [address] Estimated GFR ( Amarilis 50 [facility] Comment on above: Result Comment: GFR estimated reference range: According to KDOQI guidelines, <60 ml/min/1.73m2 is sufficient to diagnose a patient with chronic kidney disease. Performed By: #### B MP, CBC #### [address] Estimated GFR (Non- Am 41 [facility] Comment on above: Performed By: #### B MP, CBC #### [address] Glucose [Mass/Vol] 99 mg/dL Normal 70-100 [facility] Comment on above: Result Comment: [place] om Glucose Reference Range is dependent on time and content of last meal. Glucose of more than 200 mg/dL in a nonstressed, ambulatory subject supports the diagnosis of Diabetes Mellitus. ADA recommended reference range Performed By: #### B MP, CBC #### [address] Potassium [Moles/Vol] 4.1 mmol/L Normal 3.5-5.1 [facility] Comment on above: Performed By: #### B MP, CBC #### [address] Sodium [Moles/Vol] 136 mmol/L Normal 136-146 [facility] Comment on above: Performed By: #### B MP, CBC #### [address] Urea nitrogen [Mass/Vol] 21 mg/dL Normal 9-23 [facility] Comment on above: Performed By: #### B MP, CBC #### [place] [address] [place] Basophils Auto (Bld) [#/Vol] Ordered By: Victor Manuel Chencho on 01-09-2022 Basophils (Bld) [#/Vol] 0.1 10*3/uL 0.0-0.2 [facility] Basophils/100 WBC Auto (Bld) Ordered By: Victor Manuel Paiz on 01-09-2022 Basophils/100 WBC (Bld) 1.0 % . [facility] Bilirubin Test strip Ql (U)O rdered By: Victor Manuel Chencho on 01-09-2022 Bilirubin Ql (U) Negative Negative [facility] COVID-19 Antigenon COVID-19 Antigen Healthcare Worker?: N [...] developed and its performance characteristic determined by [employer] and validated at [facility]. This test has not been FDA cleared [...] for SARS Antigen by MADHAVI PERFORMED BY: [place] [id number] PATHOLOGIST [employer] JAYY SANTA M.D. Normal [facility] Comment on above: Performed By: #### C OVID-19 MOSES CREWSEG #### [facility] [address] [place], [place] [id number] [facility] COVID-19 FRMCon 01-09-2022 SARS-CoV-2 (COVID-19) RNA SMITHA+probe Ql (Unsp spec) Negative Normal Negative [facility] Comment on above: Order Comment: Healt hcare Worker?: N Result Comment: Testing for SARS-CoV-2 by RT-PCR This test was developed and its performance characteristics determined by [employer]) and validated at the [facility]. This test has not been FDA cleared [...] is terminated or revoked sooner. PERFORMED BY: [place] [address] PATHOLOGIST [employer] JAYY SANTA M.D. Performed By: #### B MP, CBC #### [facility] [address] [place] [address] COVID-19 Positive/NegativeOr dered By: Victor Manuel Paiz on 01-09-2022 SARS-CoV-2 (COVID-19) N gene SMITHA+probe Ql (Resp) Negative Negative [facility] Comment on above: Testing for SARS-CoV -2 by RT-PCRThis test was developed and its performance characteristics determined by [employer] ([employer]) and validated at the [facility]. This test has not been FDA cleared [...] (COVID-19) Ag IA.rapid Ql (Resp) Negative Negative [facility] Comment on above: This is a duplicate Mars SARS Antigen (MADHAVI) result to be used for statistical tracking purpose only. CT cervical spine wo conon 1 03-11-2021 CT cervical spine wo [facility] [place] [address] CT Scan Report Signed Patient: Irineo Wallis Jr MR#: [id number] : 1940 Acct:[id number] Age/Sex: 81 / M ADM Date: 01/09/22 Loc: ER Room: Type: [facility] ER Attending Dr: Copies to: Victor [...] Esa Cardoso M.D.01/09/2022 1:02 PM Dictation Location: [place] [address] Transcribed By: [facility] 01/09/22 1302 Dictated By: Esa Cardoso DO 01/09/22 1300 Signed By: 01/09/22 130[address] [facility] [address] head/brain wo conon 01-09 CT head/brain wo con [facility] [place] [address] CT Scan Report Signed Patient: Irineo Wallis Jr MR#: [id number] : 1940 Acct:[id number] Age/Sex: 81 / M ADM Date: 01/09/22 Loc: ER Room: Type: [facility] ER Attending Dr: Copies to: Victor [...] DO 01/09/22 1259 Signed By: 01/09/22 [address] [facility] [address] lumbar spine wo conon CT lumbar spine wo [facility] [place] [address] CT Scan Report Signed Patient: Irineo Wallis Jr MR#: [id number] : 1940 Acct:[id number] Age/Sex: 81 / M ADM Date: 01/09/22 Loc: ER Room: Type: [facility] ER Attending Dr: Copies to: Victor [...] DO 01/09/22 1309 Signed By: 01/09/22 1311 [facility] [address] thoracic spine wo conon 1 03-11-2021 CT thoracic spine wo [facility] [place] [address] [place] [address] [address] [address] Scan Report Signed Patient: Irineo Wallis Jr MR#: [id number] : 1940 Acct:[id number] Age/Sex: 81 / M ADM Date: 01/09/22 Loc: ER Room: Type: [facility] ER Attending Dr: Copies to: Victor [...] Esa Cardoso M.D.01/09/2022 1:06 PM Dictation Location: [place] [address] Transcribed By: [facility] 01/09/22 1306 Dictated By: Esa Cardoso DO 01/09/22 1304 Signed By: 01/09/22 1306 Normal [facility] Color Auto (U)Ordered By: Brigitte Paiz on 01-09-2022 Color (U) Yellow Yellow [facility] Complete Blood Count Auto Di ffon 01-09-2022 Basophils (Bld) [#/Vol] 0.1 10*3/uL Normal 0.0-0.2 [facility] Comment on above: Result Comment: PERF ORMED BY: [address] [id number] PATHOLOGIST [employer] JAYY SANTA M.D. Performed By: #### B MP, CBC #### [facility] [address] [place] [address] [place] Basophils/100 WBC (Bld) 1.0 % Normal . [facility] [facility] Comment on above: Performed By: #### B MP, CBC #### [facility] [address] [place] [address] [place] Eosinophils (Bld) [#/Vol] 0.0 10*3/uL Normal 0.0-0.45 [facility] Comment on above: Performed By: #### B MP, CBC #### [facility] [address] [place] [address] [place] Eosinophils/100 WBC (Bld) 0.1 % Normal . [facility] Comment on above: Performed By: #### B MP, CBC #### [address] Erythrocyte distribution width (RBC) [Ratio] 15.9 % High 12.0-14.8 [facility] Comment on above: Performed By: #### B MP, CBC #### [facility] [address] [place] [address] [place] Hematocrit (Bld) [Volume fraction] 36.5 % Low 38.8-50.0 [facility] Comment on above: Performed By: #### B MP, CBC #### [facility] [address] [place] [address] [place] Hemoglobin (Bld) [Mass/Vol] 12.1 g/dL Low 13.0-17.0 [facility] Comment on above: Performed By: #### B MP, CBC #### [facility] [address] [place] [address] [place] Lymphocytes (Bld) [#/Vol] 0.8 10*3/uL Low 1.00-4.8 [facility] Comment on above: Performed By: #### B MP, CBC #### [facility] [address] [place] [address] [place] Lymphocytes/100 WBC (Bld) 13.5 % Normal . [facility] Comment on above: Performed By: #### B MP, CBC #### [facility] [address] MCH (RBC) [Entitic mass] 33.7 pg Normal 27.5-35.2 [facility] Comment on above: Performed By: #### B MP, CBC #### [facility] [address] MCV (RBC) [Entitic vol] 101.5 fL High 83.5-101 [facility] Comment on above: Performed By: #### B MP, CBC #### [facility] [address] Mean Corpuscular HGB Conc 33.2 g/dL Normal 32.5-35.6 [facility] Comment on above: Performed By: #### B MP, CBC #### [facility] [address] Monocytes (Bld) [#/Vol] 0.9 10*3/uL High 0.0-0.8 [facility] Comment on above: Performed By: #### B MP, CBC #### [facility] [address] [place] [address] [place] Monocytes/100 WBC (Bld) 14.2 % Normal . [facility] Comment on above: Performed By: #### B MP, CBC #### [facility] [address] Neutrophils (Bld) [#/Vol] 4.3 10*3/uL Normal 1.8-7.7 [facility] Comment on above: Performed By: #### B MP, CBC #### [facility] [address] [place] [address] [place] Neutrophils/100 WBC (Bld) 71.2 % Normal . [facility] Comment on above: Performed By: #### B MP, CBC #### [facility] [address] [place] [address] [place] Nucleated RBC/100 WBC (Bld) [Ratio] 0.1 % Normal 0-0.5 [facility] Comment on above: Performed By: #### B MP, CBC #### [facility] [address] Platelet mean volume (Bld) [Entitic vol] 8.3 fL Normal 6.6-10.1 [facility] Comment on above: Performed By: #### B MP, CBC #### [facility] [address] Platelets (Bld) [#/Vol] 162 10*3/uL Normal 150-450 [facility] Comment on above: Performed By: #### B MP, CBC #### [facility] [address] RBC (Bld) [#/Vol] 3.59 10*6/uL Low 3.90-5.60 [facility] Comment on above: Performed By: #### B MP, CBC #### [address] WBC (Bld) [#/Vol] 6.0 10*3/uL Normal 4.5-11.0 [facility] Comment on above: Performed By: #### B MP, CBC #### [address] Creatine Kinaseon 01-09-2022 CK [Catalytic activity/Vol] 231 U/L Normal 22-269 [facility] Comment on above: Performed By: #### B MP, CBC #### [address] Creatine kinase [Enzymatic a ctivity/volume] in Serum or PlasmaOrdered By: Victor Manuel Paiz on 01-09-2022 CK [Catalytic activity/Vol] 231 U/L 22-269 [facility] Creatinine Kinase MBon 01-09 CK.MB [Mass/Vol] 5.4 ng/mL Normal 0.6-6.3 [facility] Comment on above: Performed By: #### B MP, CBC #### [address] CKMB Relative Index 2.3 % Normal 0.00-2.50 [facility] Comment on above: Performed By: #### B MP, CBC #### [facility] [address] [place] [id number] [place] Creatinine and Glomerular fi ltration rate.predicted panel (S/P/Bld)Ordered By: Victor Manuel Paiz on 01-09-2022 Creatinine [Mass/Vol] 1.62 mg/dL 0.64-1.27 [facility] Dipstick and Microscopicon 1 03-11-2021 Appearance (U) Cloudy Critically abnormal Clear [facility] Comment on above: Order Comment: Name Collection Type:: Clean-Voided Midstream Performed By: #### B MP, CBC #### [facility] [address] [place] [address] [place] Bacteria,Urine None Seen Normal None Seen [facility] Comment on above: Order Comment: Name Collection Type:: Clean-Voided Midstream Performed By: #### B MP, CBC #### [facility] [address] [place] [id number] [place] Bilirubin,Urine Negative Normal Negative [facility] Comment on above: Order Comment: Name Collection Type:: Clean-Voided Midstream Performed By: #### B MP, CBC #### [facility] [address] [place] [id number] [place] Color (U) Yellow Normal Yellow [facility] Comment on above: Order Comment: Name Collection Type:: Clean-Voided Midstream Performed By: #### B MP, CBC #### [facility] [address] [place] [address] [place] Glucose Ql (U) Normal Normal Normal [facility] Comment on above: Order Comment: Name Collection Type:: Clean-Voided Midstream Performed By: #### B MP, CBC #### [facility] [address] [place] [address] [place] Hyaline Casts,Urine 0-8 Normal 0-8 [facility] Comment on above: Order Comment: Name Collection Type:: Clean-Voided Midstream Performed By: #### B MP, CBC #### [facility] [address] [place] [id number] [place] Ketones Ql (U) Trace High Negative [facility] Comment on above: Order Comment: Name Collection Type:: Clean-Voided Midstream Performed By: #### B MP, CBC #### [address] Leukocyte esterase Test strip Ql (U) 2+ High Negative [facility] Comment on above: Order Comment: Name Collection Type:: Clean-Voided Midstream Performed By: #### B MP, CBC #### [facility] [address] [place] [address] [place] Nitrite,Urine Negative Normal Negative [facility] Comment on above: Order Comment: Name Collection Type:: Clean-Voided Midstream Performed By: #### B MP, CBC #### [address] Occult Blood,Urine Negative Normal Negative [facility] Comment on above: Order Comment: Name Collection Type:: Clean-Voided Midstream Result Comment: PERF ORMED BY: [place] [address] PATHOLOGIST [employer] JAYY SANTA M.D. Performed By: #### B MP, CBC #### [address] pH (U) 5.5 [pH] Normal 5.0-9.0 [facility] Comment on above: Order Comment: Name Collection Type:: Clean-Voided Midstream Performed By: #### B MP, CBC #### [place] [address] [place] Protein,Urine Trace High Negative [facility] Comment on above: Order Comment: Name Collection Type:: Clean-Voided Midstream Performed By: #### B MP, CBC #### [facility] [address] [place] [address] [place] RBC LM.HPF (Urine sed) [#/Area] 0 /[HPF] Normal 0-4 [facility] Comment on above: Order Comment: Name Collection Type:: Clean-Voided Midstream Performed By: #### B MP, CBC #### [place] [address] [place] Specificy Creola,Urine 1.018 Normal 1.001-1.03 0 [facility] Comment on above: Order Comment: Name Collection Type:: Clean-Voided Midstream Performed By: #### B MP, CBC #### [address] Squamous Epithelial Cell,Urine 0-1 Normal 0-2 [facility] Comment on above: Order Comment: Name Collection Type:: Clean-Voided Midstream Performed By: #### B MP, CBC #### [address] Urobilinogen,Urine Normal Normal Normal [facility] Comment on above: Order Comment: Name Collection Type:: Clean-Voided Midstream Performed By: #### B MP, CBC #### [address] WBC,Urine 5-9 High 0-4 [facility] Comment on above: Order Comment: Name Collection Type:: Clean-Voided Midstream Performed By: #### B MP, CBC #### [address] Yeast,Urine None Seen Normal None Seen [facility] Comment on above: Order Comment: Name Collection Type:: Clean-Voided Midstream Result Comment: PERF ORMED BY: [place] [address] PATHOLOGIST [employer] JAYY SANTA M.D. Performed By: #### B MP, CBC #### [address] ECG 12 lead ECGon 01-09-2022 [address] [facility] [place] [address] Electrocardiograph Report Signed Patient: Irineo Wallis Jr MR#: [id number] : 1940 Acct:[id number] Age/Sex: 81 / M ADM Date: 01/09/22 Loc: Room: [address] [place] [address] Type: DIS IN Attending Dr: Raji Ennis [...] Victor Manuel Paiz MD 07/26 1548 Normal [facility] Eosinophils Auto (Bld) [#/Vo l]Ordered By: Victor Manuel Paiz on 01-09-2022 Eosinophils (Bld) [#/Vol] 0.0 10*3/uL 0.0-0.45 [facility] Eosinophils/100 WBC Auto (Bl d)Ordered By: Victor Manuel Paiz on 01-09-2022 Eosinophils/100 WBC (Bld) 0.1 % . [facility] Erythrocyte distribution wid th Auto (RBC) [Ratio]Ordered By: Victor Manuel Paiz on 01-09-2022 Erythrocyte distribution width (RBC) [Ratio] 15.9 % 12.0-14.8 [facility] Estimated glomerular filtrat ion rate (GFR) non- AmericanOrdered By: Victor Manuel Paiz on 01-09-2022 GFR/1.73 sq M.predicted among non-blacks MDRD (S/P/Bld) [Vol rate/Area] 41 mL/Min [facility] Hematocrit Auto (Bld) [Volum e fraction]Ordered By: Victor Manuel Paiz on 01-09-2022 Hematocrit (Bld) [Volume fraction] 36.5 % 38.8-50.0 [facility] Hemoglobin [Mass/volume] in BloodOrdered By: Victor Manuel Paiz on 01-09-2022 Hemoglobin (Bld) [Mass/Vol] 12.1 g/dL 13.0-17.0 [facility] Ketones Auto test strip (U) [Mass/Vol]Ordered By: Victor Manuel Paiz on 01-09-2022 Ketones (U) [Mass/Vol] Trace Negative [facility] - Chemistry and C hemistry - challengeOrdered By: Victor Manuel Paiz on 01-09-2022 Natriuretic peptide B (Bld) [Mass/Vol] 1810.0 pg/mL 5-100 [facility] Laboratory - CoagulationOrde red By: Victor Manuel Paiz on 01-09-2022 PT Coag (PPP) [Time] 28.4 s 9.0-12.9 [facility] - Hematology and Cell countsOrdered By: Victor Manuel Paiz on 01-09-2022 Nucleated RBC/100 WBC (Bld) [Ratio] 0.1 % 0-0.5 [facility] Laboratory - UrinalysisOrder ed By: Victor Manuel Paiz on 01-09-2022 Hyaline casts LM Ql (Urine sed) 0-8 [LPF] 0-8 [facility] Leukocytes [#/volume] in Blo od by Automated countOrdered By: Victor Manuel Paiz on 01-09-2022 WBC (Bld) [#/Vol] 6.0 10*3/uL 4.5-11.0 [facility] Lymphocytes Auto (Bld) [#/Vo l]Ordered By: Victor Manuel Paiz on 01-09-2022 Lymphocytes (Bld) [#/Vol] 0.8 10*3/uL 1.00-4.8 [facility] Lymphocytes/100 WBC Auto (Bl d)Ordered By: Victor Manuel Paiz on 01-09-2022 Lymphocytes/100 WBC (Bld) 13.5 % . [facility] MCH Auto (RBC) [Entitic mass ]Ordered By: Victor Manuel Paiz on 01-09-2022 MCH (RBC) [Entitic mass] 33.7 pg 27.5-35.2 [facility] MCHC Auto (RBC) [Mass/Vol]Or dered By: Victor Manuel Paiz on 01-09-2022 MCHC (RBC) [Mass/Vol] 33.2 g/dL 32.5-35.6 [facility] MCV Auto (RBC) [Entitic vol] Ordered By: Victor Manuel Paiz on 11-05-2022 MCV (RBC) [Entitic vol] 101.5 fL 83.5-101 [facility] Monocytes Auto (Bld) [#/Vol] Ordered By: Victor Manuel Paiz on 01-09-2022 Monocytes (Bld) [#/Vol] 0.9 10*3/uL 0.0-0.8 [facility] Monocytes/100 WBC Auto (Bld) Ordered By: Victor Manuel Paiz on 01-09-2022 Monocytes/100 WBC (Bld) 14.2 % . [facility] Neutrophils Auto (Bld) [#/Vo l]Ordered By: Victor Manuel Paiz on 01-09-2022 Neutrophils (Bld) [#/Vol] 4.3 10*3/uL 1.8-7.7 [facility] Neutrophils/100 WBC Auto (Bl d)Ordered By: Victor Manuel Paiz on 01-09-2022 Neutrophils/100 WBC (Bld) 71.2 % . [facility] Nitrite Test strip Ql (U)Ord ered By: Victor Manuel Paiz on 01-09-2022 Nitrite Ql (U) Negative Negative [facility] No Panel InformationOrdered By: Victor Manuel Paiz on 01-09-2022 SARS Antigen (LFIA) [facility] Estimated GFR () 50 mL/Min [facility] Comment on above: GFR estimated refere nce range: According to KDOQI guidelines, <60 ml/min/1.73m2 is sufficient to diagnose a patient with chronic kidney disease. Pharmacy Creatinine Clearance (Chem 39.44 [facility] SARS Antigen (LFIA) [facility] Partial Thromboplastin Timeo n 01-09-2022 aPTT Coag (Bld) [Time] 39.1 s High 25.1-36.5 [facility] Comment on above: Result Comment: PERF ORMED BY: [place] [address] PATHOLOGIST [employer] JAYY SANTA M.D. Performed By: #### B MP, CBC #### [address] Platelet mean volume Auto (B ld) [Entitic vol]Ordered By: Victor Manuel Paiz on 01-09-2022 Platelet mean volume (Bld) [Entitic vol] 8.3 fL 6.6-10.1 [facility] Platelet poor plasma interna tional normalized ratio (INR) by coagulation assay (relatOrdered By: Victor Manuel Paiz on 01-09-2022 INR Coag (PPP) [Relative time] 2.5 {INR} [facility] Comment on above: INR Therapeutic Rang e [...] 01-09-2022 Platelets (Bld) [#/Vol] 162 10*3/uL 150-450 [facility] Protein Auto test strip (U) [Mass/Vol]Ordered By: Victor Manuel Paiz on 01-09-2022 Protein (U) [Mass/Vol] Trace mg/dL Negative F [facility] Prothrombin Time INRon 01-09 INR Coag (PPP) [Relative time] 2.5 {INR} Normal [facility] Comment on above: Result Comment: INR Therapeutic [...] Performed By: #### B MARY CBC #### [facility] [address] PT Coag (PPP) [Time] 28.4 s High 9.0-12.9 [facility] Comment on above: Performed By: #### B MARY, CBC #### [facility] [address] RBC Auto (Bld) [#/Vol]Ordere d By: Victor Manuel Paiz on 01-09-2022 RBC (Bld) [#/Vol] 3.59 10*6/uL 3.90-5.60 [facility] Serum or plasma anion gap de terminationOrdered By: Victor Manuel Paiz on 01-09-2022 Anion gap [Moles/Vol] 14.9 mmol/L 6.0-15.0 [facility] Serum or plasma calcium alistair urement (mass/volume)Ordered By: Victor Manuel Paiz on 01-09-2022 Calcium [Mass/Vol] 9.2 mg/dL 8.2-10.2 [facility] Serum or plasma chloride jaymie surement (moles/volume)Ordered By: Victor Manuel Paiz on 01-09-2022 Chloride [Moles/Vol] 100 mmol/L 95-114 [facility] Serum or plasma creatine kin ase MB (CKMB)/total creatine kinase (CK) ratio by calculaOrdered By: Victor Manuel Paiz on 01-09-2022 CK.MB Calc [Catalytic fraction] 2.3 % 0.00-2.50 [facility] Serum or plasma creatine kin ase MB measurement (mass/volume)Ordered By: Victor Manuel Paiz on 01-09-2022 CK.MB [Mass/Vol] 5.4 ng/mL 0.6-6.3 [facility] Serum or plasma glucose alistair urement (mass/volume)Ordered By: Victor Manuel Paiz on 01-09-2022 Glucose [Mass/Vol] 99 mg/dL 70-100 [facility] Comment on above: ADA recommended refe rence rangeRandom Glucose Reference Range is dependent on time and content of last meal. Glucose of more than 200 mg/dL in a nonstressed, ambulatory subject supports the diagnosis of Diabetes Mellitus. Serum or plasma potassium me asurement (moles/volume)Ordered By: Victor Manuel Paiz on 01-09-2022 Potassium [Moles/Vol] 4.1 mmol/L 3.5-5.1 [facility] Serum or plasma sodium measu rement (moles/volume)Ordered By: Victor Manuel Paiz on 01-09-2022 Sodium [Moles/Vol] 136 mmol/L 136-146 [facility] Serum or plasma total carbon dioxide measurement (moles/volume)Ordered By: Victor Manuel Paiz on 11-05-2022 CO2 [Moles/Vol] 25.2 mmol/L 22.0-30.0 [facility] Serum or plasma urea nitroge n measurement (mass/volume)Ordered By: Victor Manuel Paiz on 01-09-2022 Urea nitrogen [Mass/Vol] 21 mg/dL 11-27 [facility] Mars Ag Negativeon 01-10-20 Mars Ag Negative Negative Normal Negative [facility] Comment on above: Result Comment: This is a duplicate Mars SARS Antigen (MADHAVI) result to be used for statistical tracking purpose only. PERFORMED BY: [place] [address] PATHOLOGIST [employer] JAYY SANTA M.D. Performed By: #### C OVID-19 MARS, SOFIANEG #### [facility] [address] [place] [address] Specific gravity Auto test s trip (U) [Rel density]Ordered By: Victor Manuel Paiz on 01-09-2022 Specific gravity (U) [Rel density] 1.018 1.001-1.03 0 [facility] Squamous epithelial cells de tection in urine sediment by light microscopyOrdered By: Victor Manuel Paiz on 01-09-2022 Epithelial cells.squamous LM Ql (Urine sed) 0-1 [HPF] 0-2 [facility] Troponin I High Sensitivityo n 01-09-2022 Troponin I High Sensitivity 101 pg/mL Off scale high 0-20 [facility] Comment on above: Result Comment: Resu lts called at 1208 on 01/09/22 PERFORMED BY: [place] [address] PATHOLOGIST [employer] JAYY SANTA M.D. Performed By: #### B MP, CBC #### [facility] [address] [place] [address] Troponin I.cardiac [Mass/vol ume] in Serum or Plasma by High sensitivity methodOrdered By: Victor Manuel Paiz on 01-09-2022 Troponin I.cardiac High sensitivity method [Mass/Vol] 101 pg/mL 0-20 [facility] Comment on above: Results calledat 120 8 on 01/09/22 Urine Cultureon 01-09-2022 Bacteria identified Cx Nom (U) 30,000 colonies/ml mixed bacterial skin contaminants 2 Days PERFORMED BY: [place] [address] PATHOLOGIST [employer] JAYY SANTA M.D. [facility] Comment on above: Performed By: #### B MP, CBC #### [address] Urine bacteria detection by automated methodOrdered By: Victor Manuel Paiz on 01-09-2022 Bacteria Auto Ql (U) None seen None Seen [facility] Urine clarity by refractomet ry automatedOrdered By: Victor Manuel Paiz on 01-09-2022 Clarity Refractometry automated (U) Cloudy Clear [facility] Urine glucose measurement by automated test strip (mass/volume)Ordered By: Victor Manuel Paiz on 01-09-2022 Glucose Auto test strip (U) [Mass/Vol] Normal mg/dL Normal [facility] Urine hemoglobin detection b y automated test stripOrdered By: Victor Manuel Paiz on 01-09-2022 Hemoglobin Auto test strip Ql (U) Negative Negative [facility] Urine leukocyte esterase det ection by automated test stripOrdered By: Victor Manuel Paiz on 01-09-2022 Leukocyte esterase Auto test strip Ql (U) 2+ Negative [facility] Urobilinogen Auto test strip (U) [Mass/Vol]Ordered By: Victor Manuel Paiz on 01-09-2022 Urobilinogen (U) [Mass/Vol] Normal mg/dL Normal [facility] XR chest 1V portableon 01-09 XR chest 1V portable [facility] [place] [address] [place] [address] XRay Report Signed Patient: Irineo Wallis Jr MR#: [id number] : 1940 Acct:[id number] Age/Sex: 81 / M ADM Date: 01/09/22 Loc: ER Room: Type: [facility] ER Attending Dr: Copies to: Victor [...] Esa Cardoso M.D.01/09/2022 10:11 AM Dictation Location: [place] [address] Transcribed By: NOLVIA 01/09/22 1011 Dictated By: Esa Cardoso DO 01/09/22 1010 Signed By: 01/09/22 1011 Normal [facility] Yeast detection in urine sed iment by light microscopyOrdered By: Victor Manuel Paiz on 01-09-2022 Yeast LM Ql (Urine sed) None seen [HPF] None Seen [facility] pH Auto test strip (U)Ordere d By: Victor Manuel Paiz on 01-09-2022 pH (U) 5.5 [pH] 5.0-9.0 [facility] Body fluid albumin measureme nt (mass/volume)Ordered By: Feliciano Ga on 12-17-2021 Albumin (Body fld) [Mass/Vol] 3.5 g/dL 3.2-5.5 [facility] Comprehensive Metabolic Pane haley 12-17-2021 Albumin [Mass/Vol] 3.5 g/dL Normal 3.2-5.5 [facility] Comment on above: Order Comment: Reaso n for Exam Hypothyroidism, unspecified;Hypertension;Atrial fibrillation Reason for Exam Hypothyroidism, unspecified Performed By: #### C BC, BMP #### [facility] [address] [place] [id number] [place] Albumin/Globulin [Mass ratio] 1.6 {ratio} Normal [facility] Comment on above: Order Comment: Reaso n for Exam Hypothyroidism, unspecified;Hypertension;Atrial fibrillation Reason for Exam Hypothyroidism, unspecified Performed By: #### C BC, BMP #### [facility] [address] [place] [address] [place] ALP [Catalytic activity/Vol] 92 U/L Normal 32-92 [facility] Comment on above: Order Comment: Reaso n for Exam Hypothyroidism, unspecified;Hypertension;Atrial fibrillation Reason for Exam Hypothyroidism, unspecified Performed By: #### C BC, BMP #### [facility] [address] [place] [id number] [facility] ALT [Catalytic activity/Vol] 19 U/L Normal 10-60 [facility] Comment on above: Order Comment: Reaso n for Exam Hypothyroidism, unspecified;Hypertension;Atrial fibrillation Reason for Exam Hypothyroidism, unspecified Performed By: #### C BC, BMP #### [facility] [address] [place] [address] [facility] Anion gap [Moles/Vol] 15.3 mmol/L High 6.0-15.0 [facility] Comment on above: Order Comment: Reaso n for Exam Hypothyroidism, unspecified;Hypertension;Atrial fibrillation Reason for Exam Hypothyroidism, unspecified Performed By: #### C BC, BMP #### [facility] [address] [place] [id number] [facility] AST [Catalytic activity/Vol] 27 U/L Normal 10-42 [facility] Comment on above: Order Comment: Reaso n for Exam Hypothyroidism, unspecified;Hypertension;Atrial fibrillation Reason for Exam Hypothyroidism, unspecified Performed By: #### C BC, BMP #### [facility] [address] [place] [id number] [facility] Bilirubin [Mass/Vol] 1.2 mg/dL Normal 0.3-1.2 [facility] Comment on above: Order Comment: Reaso n for Exam Hypothyroidism, unspecified;Hypertension;Atrial fibrillation Reason for Exam Hypothyroidism, unspecified Performed By: #### C BC, BMP #### [facility] [address] [place] [id number] [place] Calcium [Mass/Vol] 9.6 mg/dL Normal 8.2-10.2 [facility] Comment on above: Order Comment: Reaso n for Exam Hypothyroidism, unspecified;Hypertension;Atrial fibrillation Reason for Exam Hypothyroidism, unspecified Performed By: #### C BC, BMP #### [facility] [address] [place] [address] [place] Chloride [Moles/Vol] 103 mmol/L Normal 95-114 [facility] Comment on above: Order Comment: Reaso n for Exam Hypothyroidism, unspecified;Hypertension;Atrial fibrillation Reason for Exam Hypothyroidism, unspecified Performed By: #### C BC, BMP #### [facility] [address] CO2 [Moles/Vol] 25.2 mmol/L Normal 22.0-30.0 [facility] Comment on above: Order Comment: Reaso n for Exam Hypothyroidism, unspecified;Hypertension;Atrial fibrillation Reason for Exam Hypothyroidism, unspecified Performed By: #### C BC, BMP #### [address] Creatinine [Mass/Vol] 1.29 mg/dL High 0.64-1.27 [facility] Comment on above: Order Comment: Reaso n for Exam Hypothyroidism, unspecified;Hypertension;Atrial fibrillation Reason for Exam Hypothyroidism, unspecified Performed By: #### C BC, BMP #### [address] Estimated GFR ( Amarilis > 60 [facility] Comment on above: Order Comment: Reaso n for Exam Hypothyroidism, unspecified;Hypertension;Atrial fibrillation Reason for Exam Hypothyroidism, unspecified Result Comment: GFR estimated reference range: According to KDOQI guidelines, <60 ml/min/1.73m2 is sufficient to diagnose a patient with chronic kidney disease. Performed By: #### C BC, BMP #### [facility] [address] [place] [address] Estimated GFR (Non- Am 54 [facility] Comment on above: Order Comment: Reaso n for Exam Hypothyroidism, unspecified;Hypertension;Atrial fibrillation Reason for Exam Hypothyroidism, unspecified Performed By: #### C BC, BMP #### [facility] [address] [place] [id number] [place] Globulin (S) [Mass/Vol] 2.2 g/dL [facility] Comment on above: Order Comment: Reaso n for Exam Hypothyroidism, unspecified;Hypertension;Atrial fibrillation Reason for Exam Hypothyroidism, unspecified Performed By: #### C BC, BMP #### [place] [id number] [place] Glucose [Mass/Vol] 84 mg/dL Normal 70-100 [facility] Comment on above: Order Comment: Reaso n for Exam Hypothyroidism, unspecified;Hypertension;Atrial fibrillation Reason for Exam Hypothyroidism, unspecified Result Comment: [facility] [place][note 2] Glucose Reference Range is dependent on time and content of last meal. Glucose of more than 200 mg/dL in a nonstressed, ambulatory subject supports the diagnosis of Diabetes Mellitus. ADA recommended reference range Performed By: #### C BC, BMP #### [facility] [address] Potassium [Moles/Vol] 4.5 mmol/L Normal 3.5-5.1 [facility] Comment on above: Order Comment: Reaso n for Exam Hypothyroidism, unspecified;Hypertension;Atrial fibrillation Reason for Exam Hypothyroidism, unspecified Performed By: #### C BC, BMP #### [facility] [address] Protein [Mass/Vol] 5.7 g/dL Low 6.1-7.9 [facility] Comment on above: Order Comment: Reaso n for Exam Hypothyroidism, unspecified;Hypertension;Atrial fibrillation Reason for Exam Hypothyroidism, unspecified Performed By: #### C BC, BMP #### [facility] [address] [place] [id number] [place] Sodium [Moles/Vol] 139 mmol/L Normal 136-146 [facility] Comment on above: Order Comment: Reaso n for Exam Hypothyroidism, unspecified;Hypertension;Atrial fibrillation Reason for Exam Hypothyroidism, unspecified Performed By: #### C BC, BMP #### [facility] [address] [place] [id number] [place] Urea nitrogen [Mass/Vol] 16 mg/dL Normal 9-23 [facility] Comment on above: Order Comment: Reaso n for Exam Hypothyroidism, unspecified;Hypertension;Atrial fibrillation Reason for Exam Hypothyroidism, unspecified Performed By: #### C BC, BMP #### [place] [address] [place] Creatinine and Glomerular fi ltration rate.predicted panel (S/P/Bld)Ordered By: Feliciano Ga on 12-17-2021 Creatinine [Mass/Vol] 1.29 mg/dL 0.64-1.27 [facility] Estimated glomerular filtrat ion rate (GFR) non- AmericanOrdered By: Feliciano Ga on 12-17-2021 GFR/1.73 sq M.predicted among non-blacks MDRD (S/P/Bld) [Vol rate/Area] 54 mL/Min [facility] Free T4 (Free Thyroxine)on Free T4 [Mass/Vol] 1.09 ng/dL Normal 0.61-1.12 [facility] Comment on above: Order Comment: Reaso n for Exam Hypothyroidism, unspecified;Hypertension;Atrial fibrillation Reason for Exam Hypothyroidism, unspecified Performed By: #### C BC, BMP #### [address] Globulin Calc (S) [Mass/Vol] Ordered By: Feliciano Ga on 12-17-2021 Globulin (S) [Mass/Vol] 2.2 g/dL [facility] No Panel InformationOrdered By: Feliciano Ga on 12-17-2021 Estimated GFR () > 60 mL/Min [facility] Comment on above: GFR estimated refere nce range: According to KDOQI guidelines, <60 ml/min/1.73m2 is sufficient to diagnose a patient with chronic kidney disease. Pharmacy Creatinine Clearance (Chem N/A [facility] Protein [Mass/volume] in Ser um or PlasmaOrdered By: Feliciano Ga on 12-17-2021 Protein [Mass/Vol] 5.7 g/dL 6.1-7.9 [facility] Serum or plasma alanine alvarez otransferase measurement without P-5'-P (enzymatic activiOrdered By: Feliciano Ga on 12-17-2021 ALT No additional P-5'-P [Catalytic activity/Vol] 19 U/L [facility] Serum or plasma albumin/glob ulin mass ratioOrdered By: Feliciano Ga on 12-17-2021 Albumin/Globulin [Mass ratio] 1.6 {ratio} [facility] Serum or plasma alkaline harish sphatase measurement (enzymatic activity/volume)Ordered By: Feliciano Ga on 12-17-2021 ALP [Catalytic activity/Vol] 92 U/L 32-92 [facility] Serum or plasma anion gap de terminationOrdered By: Feliciano Ga on 12-17-2021 Anion gap [Moles/Vol] 15.3 mmol/L 6.0-15.0 [facility] Serum or plasma aspartate am inotransferase measurement (enzymatic activity/volume)Ordered By: Feliciano Ga on 12-17-2021 AST [Catalytic activity/Vol] 27 U/L 10-42 [facility] Serum or plasma calcium alistair urement (mass/volume)Ordered By: Feliciano Ga on 12-17-2021 Calcium [Mass/Vol] 9.6 mg/dL 8.2-10.2 [facility] Serum or plasma chloride jaymie surement (moles/volume)Ordered By: Feliciano Ga on 12-17-2021 Chloride [Moles/Vol] 103 mmol/L 95-114 [facility] Serum or plasma glucose alistair urement (mass/volume)Ordered By: Feliciano Ga on 12-17-2021 Glucose [Mass/Vol] 84 mg/dL 70-100 [facility] Comment on above: ADA recommended refe rence rangeRandom Glucose Reference Range is dependent on time and content of last meal. Glucose of more than 200 mg/dL in a nonstressed, ambulatory subject supports the diagnosis of Diabetes Mellitus. Serum or plasma potassium me asurement (moles/volume)Ordered By: Feliciano Ga on 12-17-2021 Potassium [Moles/Vol] 4.5 mmol/L 3.5-5.1 [facility] Serum or plasma sodium measu rement (moles/volume)Ordered By: Feliciano Ga on 12-17-2021 Sodium [Moles/Vol] 139 mmol/L 136-146 [facility] Serum or plasma total biliru bin measurement (mass/volume)Ordered By: Feliciano Ga on 12-17-2021 Bilirubin [Mass/Vol] 1.2 mg/dL 0.3-1.2 [facility] Serum or plasma total carbon dioxide measurement (moles/volume)Ordered By: Feliciano Ga on 12-17-2021 CO2 [Moles/Vol] 25.2 mmol/L 22.0-30.0 [facility] Serum or plasma urea nitroge n measurement (mass/volume)Ordered By: Feliciano Ga on 12-17-2021 Urea nitrogen [Mass/Vol] 16 mg/dL 11-27 [facility] TSH DL <= 0.005 mIU/L QnOrde red By: Feliciano Ga on 12-17-2021 TSH Qn 1.83 m[IU]/L 0.45-5.33 [facility] Thyroid Stimulating Hormoneo n 12-17-2021 TSH Qn 1.83 m[IU]/L Normal 0.45-5.33 [facility] Comment on above: Order Comment: Reaso n for Exam Hypothyroidism, unspecified;Hypertension;Atrial fibrillation Reason for Exam Hypothyroidism, unspecified Result Comment: PERF ORMED BY: [place] [id number] PATHOLOGIST [employer] JAYY SANTA M.D. Performed By: #### C BC, BMP #### [address] Thyroxine (T4) free [Mass/vo lume] in Serum or PlasmaOrdered By: Feliciano Ga on 12-17-2021 Free T4 [Mass/Vol] 1.09 ng/dL 0.61-1.12 [facility] Office Visit (Cardiology)on 08-04-2021 Follow-up visit [...] of Cardiac catheterization History of Complete colonoscopy [facility] History of Hip replacement History of Knee [...] for com (more content not included)... Normal [employer] Tobacco Screening.on 022 Adult depression screening assessment No [facility] Heart-Sandu lauro 250 DO Work Phone: Fall risk assessment b) One or more fall s in the last year [facility] Eleni-Rayshawn restrepo 250 DO Work Phone: Tobacco use status [facility] b) No [facility] Heart-Rayshawn lauro 250 DO Work Phone: Tobacco Screening.on Fall risk assessment b) One or more fall s in the last year [facility] Harpreet restrepo 250 DO Work Phone: Tobacco use status [facility] b) No [facility] Eleni-Rayshawn restrepo 250 DO Work Phone: Coding Summary.on 12-16-2016 Coding Summary. CODING DATE: 017 FINAL [facility] STATUS: Home (Routine DC) PAYOR: Medicare APC [...] neoplasm of other organs and systems Z79.01 category planner (current) use of anticoagulants Z96.649 Presence of [...] Bynum Date Saved: 12/16/2016 09:56 am Normal [facility] Inpatient Patient Summaryon 12-15-2016 Inpatient Patient Summary [place] [id number] Clinical SummaryPerson Information Name: IRINEO WALLIS Age: 76 Years : 1940 12:00 AM Sex: Male PCP: NONE, XXXX Marital Status: Race:White Ethnicity:Non- or Language:Beninese Visit Id: Visit Reason:BPH WITH OBSTRUCTION Speciality: Acuity: Enc Type: Outpatient Med Service: Surgery Arrival:12/15/2016 8:36 AM Discharge: Dispo Type: Address:[address] [id number] Provider Notes: Diagnosis: Problems No Problems Documented [...] Information: EU - Urolift Discharge Instructions (CUSTOM) [facility] Main OR Intraoperative Recor don 12-15-2016 Main OR Intraoperative Record IntraOp Document Type FTURO Summary Primary Physician: Dontrell Good MD Finalized Date/Time: 12/15/16 09:47:51 Pt. Name: PADDYDENISIRINEO/Sex: 1940 Male Med Rec #: [id number] Physician: Dontrell Good MD Financial #: [id number] Pt. Type: O Room/Bed: / Admit/Disch: 12/15/16 [...] Sylwia Good MD, Dontrell Schaefer Role Performed Program Director Scouting - Primary Scrub - Primary Surgeon - Primary Time In 12/15/16 09:25:00 12/15/16 09:25:00 12/15/16 09:25:00 Time Out 12/15/16 09:51:00 12/15/16 09:51:00 12/15/16 09:51:00 Procedure CYSTOSCOPY LOCAL CYSTOSCOPY LOCAL CYSTOSCOPY LOCAL UROLIFT(.) UROLIFT(.) UROLIFT(.) Comments Last Modified By: Fanta FLORES, BARRYOR, BARRY Jewell RNOR, LEONARD Jewell RN, Ruthann 12/15/16 Olive 12/15/16 Olive 12/15/16 09:46:13 09:46:13 09:46:13 General Comments: d jaquan sales support coordinator in room for procedure Surgical Procedures FTURO [...] Availability Equipment, Implant, Time Out Fanta FLORES, BARRYOR, Verified (If Medication Participants Ailin Schaefer [facility], [facility] Applicable) RFlorentino MD, Dontrell Roe Time Out [...] Modified By: LEONARD Jewell RN, Olive 12/15/16 09:39:33 Post-Care Text: The patient is free from signs and symptoms of injury caused by extraneous objects Implant Log FTURO Pre-Care Text: Records devices implanted during the operative or invasive procedure Entry 1 Entry 2 Entry 3 Implant/Explant Implant Implant Implant Implant Identification Description urolift urolift urolift Serial Number [id number] Lot Number [id number] Director Erp neotract neotract neotract Catalog ?# Size Expiration Date 03/18/18 05/04/18 04/28/18 Usage Data Implant Site Quantity 1 1 2 Temperature Reconstitution Method Outcomes Met? Yes Yes Yes Last Modified By: Fanta FLORES, BARRYOR, Fanta FLORES, BARRYOR, Fanta FLORES, BARRYOR, Olive 12/15/16 Olive 12/15/16 Olive 12/15/16 09:45:31 09:45:31 09:45:31 Post-Care Text: The patient is free from signs and symptoms of injury caused by extraneous objects Case Comments Finalized By: LEONARD Jewell RN, Ruthann Document Signatures Signed By: LEONARD Jewell RN, Ruthann 12/15/16 09:46 LEONARD Jewell RN, Ruthann 12/15/16 09:47 Normal [facility] Main OR Preoperative Recordo n 12-15-2016 Main OR Preoperative Record Holding Area Document Type FTURO Summary Primary Physician: Dontrell Good MD Finalized Date/Time: 12/15/16 09:34:53 Pt. Name: KADI IRINEO Valladares/Sex: 1940 Male Med Rec #: [id number] Physician: Dontrell Good MD Financial #: [id number] Pt. Type: O Room/Bed: / Admit/Disch: 12/15/16 [...] Complaints of Pain: No Skin Integrity Intact, [place], Warm, & Dry Vitals - EU Blood Pressure 107/68 Pulse 78 bpm Respirations 16 br/min SPO2 Additional None RN Reviewed Yes Specimens Collected Last Modified By: LEONARD Jewell RN, Ruthann 12/15/16 09:30:48 Finalized By: LEONARD Jewell RN, Ruthann Document Signatures Signed By: LEONARD Jewell RN, Ruthann 12/15/16 09:30 Ingris Goel 12/15/16 09:09 LEONARD Jewell RN, Ruthann 12/15/16 09:34 Normal [facility] Operative Reporton 7 Operative Report Patient: [...] procedure (10 mg diazepam, 5/325 mg of [place]), Local Anesthesia (60cc 2% Xylocaine liquid inserted [...] procedure well and was subsequently discharged home. [facility] Comment on above: Result Comment: Elec tronically Signed By: Florentino TIDWELL, Dontrell Steward.elizabeth\Date and Time Signed: 12/15/16 09:49 EDT Vital Signs Date Time Vital Sign Value Performing Clinician Facility 03-18-2023 09:15-0500 Body height 167.64 cm Feliciano Ga Other [facility] Other 03-18-2023 09:15-0500 Body mass index (BMI) [Ratio] 29.7 kg/m2 Feliciano Ga Other [facility] Other 03-18-2023 09:15-0500 Body weight 83.46 kg Feliciano Ga Other [facility] Other 03-18-2023 09:15-0500 Diastolic blood pressure 80 mm[Hg] Feliciano Ga Other [facility] Other 03-18-2023 09:15-0500 Respiratory rate 16 /min Feliciano Ga Other [facility] Other 03-18-2023 09:15-0500 SaO2% (BldA) [Mass fraction] 97 % Feliciano Ga Other [facility] Other 03-18-2023 09:15-0500 Systolic blood pressure 124 mm[Hg] Feliciano Ga Other [facility] Other 09-15-2022 09:15-0400 Body height 167.64 cm Feliciano Ga Other [facility] Other 09-15-2022 09:15-0400 Body mass index (BMI) [Ratio] 28.11 kg/m2 Feliciano Ga Other [facility] Other 09-15-2022 09:15-0400 Body weight 79.02 kg Feliciano Ga Other [facility] Other 09-15-2022 09:15-0400 Diastolic blood pressure 70 mm[Hg] Feliciano Ga Other [facility] Other 09-15-2022 09:15-0400 Respiratory rate 16 /min Feliciano Ga Other [facility] Other 09-15-2022 09:15-0400 SaO2% (BldA) [Mass fraction] 96 % Feliciano Ga Other [facility] Other 09-15-2022 09:15-0400 Systolic blood pressure 112 mm[Hg] Feliciano Ga Other [facility] Other 07-07-2022 09:36-0400 Body height 167.64 cm [facility]iciano Ga [facility] 250 DO Work Phone: 07-07-2022 09:36-0400 Body mass index (BMI) [Ratio] 28.89 kg/m2 Feliciano Ga Work [facility] 250 DO Work Phone: 07-07-2022 09:36-0400 Body surface area Derived from formula 1.91 m2 Felicianoamadou aG Work Phone: [facility] 250 DO Work Phone: 07-07-2022 09:36-0400 Body weight 81.19 kg Feliciano Ga Work Phone: [facility] 250 DO Work Phone: 07-07-2022 09:36-0400 Diastolic blood pressure 84 mm[Hg] Felicianoamadou Ga Work Phone: [facility] 250 DO Work Phone: 07-07-2022 09:36-0400 Heart rate 76 /min Felicianoamadou Ga Work Phone: [facility] 250 DO Work Phone: 07-07-2022 09:36-0400 Systolic blood pressure 128 mm[Hg] Felicianoamadou aG Work Phone: [facility] 250 DO Work Phone: 06-07-2022 10:15-0400 Body height 167.64 cm Feliciano Ga Other [facility] [employer] Other 06-07-2022 10:15-0400 Body mass index (BMI) [Ratio] 29.7 kg/m2 Feliciano Ga Other [facility] Other 06-07-2022 10:15-0400 Body weight 83.46 kg Feliciano Ga Other [employer] Other 06-07-2022 10:15-0400 Diastolic blood pressure 60 mm[Hg] Feliciano Ga Other [employer] Other 06-07-2022 10:15-0400 Respiratory rate 16 /min Feliciano Ga Other [facility] [employer] Other 06-07-2022 10:15-0400 SaO2% (BldA) [Mass fraction] 96 % Feliciano Ga Other [facility] [employer] Other 06-07-2022 10:15-0400 Systolic blood pressure 120 mm[Hg] Felicianoamadou Ga Other [facility] [employer] Other 03-10-2022 14:47-0500 Body height 167.64 cm Feliciano Ga [facility]ena 250 DO Work Phone: 03-10-2022 14:47-0500 Body mass index (BMI) [Ratio] 30.18 kg/m2 Fleiciano Ga Work Phone: [facility] [employer] 250 DO Work Phone: 03-10-2022 14:47-0500 Body surface area Derived from formula 1.94 m2 Feliciano Ga Work Phone: [facility] [employer]-[place]meena 250 DO Work Phone: 03-10-2022 14:47-0500 Body weight 84.82 kg Feliciano Ga Work Phone: [facility] 250 DO Work Phone: 03-10-2022 14:47-0500 Diastolic blood pressure 90 mm[Hg] Feliciano Ga Work Phone: [facility] 250 DO Work Phone: 03-10-2022 14:47-0500 Heart rate 72 /min Feliciano Ga Work Phone: [facility] [employer] 250 DO Work Phone: 01-04-2023 14:47-0500 Systolic blood pressure 128 mm[Hg] Feliciano Ga Work Phone: [facility] 250 DO Work Phone: 03-09-2022 13:30-0500 Body height 142.24 cm Feliciano Ga Other [facility] [employer] Other 03-09-2022 13:30-0500 Body mass index (BMI) [Ratio] 42.82 kg/m2 Feliciano Ga Other [facility] [employer] Other 03-09-2022 13:30-0500 Body weight 86.64 kg Feliciano Ga Other [facility] [employer] Other 03-09-2022 13:30-0500 Diastolic blood pressure 78 mm[Hg] Feliciano Ga Other [facility] [employer] Other 03-09-2022 13:30-0500 Respiratory rate 16 /min Feliciano Ga Other [facility] [employer] Other 03-09-2022 13:30-0500 SaO2% (BldA) [Mass fraction] 96 % Feliciano Ga Other [facility] [employer] Other 03-09-2022 13:30-0500 Systolic blood pressure 136 mm[Hg] Feliciano Ga Other [facility] [employer] Other 02-09-2022 15:45-0500 Body height 142.24 cm Feliciano Ga Other [employer] Other 02-09-2022 15:45-0500 Body mass index (BMI) [Ratio] 44.92 kg/m2 Feliciano Ga Other [employer] Other 02-09-2022 15:45-0500 Body weight 90.9 kg Feliciano Ga Other [employer] Other 02-09-2022 15:45-0500 Diastolic blood pressure 83 mm[Hg] Feliciano Ga Other [facility] Other 02-09-2022 15:45-0500 Respiratory rate 16 /min Feliciano Ga Other [facility] Other 02-09-2022 15:45-0500 SaO2% (BldA) [Mass fraction] 98 % Feliciano Ga Other [employer] Other 02-09-2022 15:45-0500 Systolic blood pressure 124 mm[Hg] Feliciano Spencers Other [facility] [employer] Other 01-16-2022 11:37-0500 Body temperature 98.1 [degF] DO Feliciano Tjs Work Phone: [facility] 01-16-2022 11:37-0500 Diastolic blood pressure 71 mm[Hg] DO Feliciano Kuns Work Phone: [facility] 01-16-2022 11:37-0500 Heart rate 79 /min DO Feliciano Kuns Work Phone: [facility] 01-16-2022 11:37-0500 Respiratory rate 16 /min DO Feliciano Kuns Work Phone: [facility] 01-16-2022 11:37-0500 SaO2% (BldA) [Mass fraction] 97 % DO Feliciano Kuns Work Phone: [facility] 01-16-2022 11:37-0500 Systolic blood pressure 124 mm[Hg] DO Feliciano Kuns Work Phone: [facility] 01-16-2022 04:10-0500 Body weight 90.5 kg DO Feliciano Tjs Work Phone: [facility] 01-13-2022 16:00-0500 Inhaled oxygen flow rate 1 L/min DO Feliciano Kuns Work Phone: [facility] 01-11-2022 13:55-0500 Body height 167.64 cm DO Feliciano Kuns Work Phone: [facility] 01-09-2022 14:00-0400 Diastolic blood pressure 74 mm[Hg] DO Feliciano Kuns Work Phone: [facility] 01-09-2022 14:00-0400 Heart rate 67 /min DO Feliciano Tjs Work Phone: [facility] 01-09-2022 14:00-0400 Inhaled oxygen flow rate 3 L/min DO Feliciano Tjs Work Phone: [facility] 01-09-2022 14:00-0400 Respiratory rate 19 /min DO Feliciano Tjs Work Phone: [facility] 01-09-2022 14:00-0400 SaO2% (BldA) [Mass fraction] 99 % DO Feliciano Tjs Work Phone: [facility] 01-09-2022 14:00-0400 Systolic blood pressure 145 mm[Hg] DO Feliciano Kuns Work Phone: [facility] 01-09-2022 09:41-0400 Body temperature 97.2 [degF] DO Feliciano Kuns Work Phone: [facility] 01-09-2022 09:38-0400 Body height 167.64 cm DO Feliciano Kuns Work Phone: [facility] 01-09-2022 09:38-0400 Body weight 96 kg DO Feliciano Kuns Work Phone: [facility] 01-07-2022 13:45-0400 Body height 142.24 cm Felicianoamadou Spencer[employer] Other [facility] Other 01-07-2022 13:45-0400 Body mass index (BMI) [Ratio] 48.42 kg/m2 Feliciano Ga Other [facility] Other 01-07-2022 13:45-0400 Body weight 97.98 kg Feliciano Ga Other [facility] Other 01-07-2022 13:45-0400 Diastolic blood pressure 62 mm[Hg] Feliciano Ga Other [facility] Other 01-07-2022 13:45-0400 Respiratory rate 16 /min Feliciano Ga Other [facility] Other 01-07-2022 13:45-0400 SaO2% (BldA) [Mass fraction] 94 % Feliciano Ga Other [facility] Other 01-07-2022 13:45-0400 Systolic blood pressure 122 mm[Hg] Feliciano Ga Other [facility] Other 10-12-2021 09:00-0400 Body height Feliciano Harmeet Other [facility] Other 10-12-2021 09:00-0400 Body mass index (BMI) [Ratio] 32.83 kg/m2 Feliciano Ga Other [facility] Other 10-12-2021 09:00-0400 Body weight 92.26 kg Feliciano Ga Other [facility] Other 10-12-2021 09:00-0400 Diastolic blood pressure 54 mm[Hg] Feliciano Ga Other [facility] Other 10-12-2021 09:00-0400 Respiratory rate 16 /min Feliciano Ga Other [facility] Other 10-12-2021 09:00-0400 SaO2% (BldA) [Mass fraction] 95 % Feliciano Ga Other [facility] Other 10-12-2021 09:00-0400 Systolic blood pressure 110 mm[Hg] Feliciano Spencers Other [facility] Other 09-11-2021 10:00-0400 Body height Feliciano Ga Other [facility] Other 09-11-2021 10:00-0400 Diastolic blood pressure 52 mm[Hg] Feliciano Ga Other [facility] Other 09-11-2021 10:00-0400 Respiratory rate 16 /min Feliciano Ga Other [facility] Other 09-11-2021 10:00-0400 SaO2% (BldA) [Mass fraction] 96 % Feliciano Ga Other [facility] Other 09-11-2021 10:00-0400 Systolic blood pressure 102 mm[Hg] Feliciano Spencers Other [facility] Other 08-31-2021 12:00-0400 Body height Feliciano Ga Other [facility] Other 08-31-2021 12:00-0400 Diastolic blood pressure 70 mm[Hg] Feliciano Ga Other [facility] [employer] Other 08-31-2021 12:00-0400 Systolic blood pressure 130 mm[Hg] Feliciano Ga Other [facility] [employer] Other 08-04-2021 14:17-0400 Body height 167.64 cm Feliciano Louis Ga Work Phone: [facility] 250 DO Work Phone: 08-04-2021 14:17-0400 Body mass index (BMI) [Ratio] 33.09 kg/m2 Feliciano Myers Harmeet Work Phone: [facility] 250 DO Work Phone: 08-04-2021 14:17-0400 Body surface area Derived from formula 2.02 m2 Feliciano Louis Ga Work Phone: [facility] [facility] 250 DO Work Phone: 08-04-2021 14:17-0400 Body weight 92.99 kg Feliciano Louis Ga Work Phone: [facility] 250 DO Work Phone: 08-04-2021 14:17-0400 Diastolic blood pressure 56 mm[Hg] Feliciano Myers Harmeet Work Phone: [facility] 250 DO Work Phone: 08-04-2021 14:17-0400 Heart rate 54 /min Feliciano Ga Work Phone: [facility] 250 DO Work Phone: 08-04-2021 14:17-0400 Systolic blood pressure 108 mm[Hg] Feliciano Ga Work Phone: [facility] 250 DO Work Phone: 01-19-2021 09:30-0500 Body height Feliciano Ga Other [employer] Other 01-19-2021 09:30-0500 Body mass index (BMI) [Ratio] 33.67 kg/m2 Feliciano Ga Other [employer] Other 01-19-2021 09:30-0500 Body weight 94.62 kg Feliciano Ga Other [employer] Other 01-19-2021 09:30-0500 Diastolic blood pressure 62 mm[Hg] Feliciano Ga Other [employer] Other 01-19-2021 09:30-0500 Respiratory rate 16 /min Feliciano Ga Other [employer] Other 01-19-2021 09:30-0500 SaO2% (BldA) [Mass fraction] 96 % Feliciano Ga Other [employer] Other 01-19-2021 09:30-0500 Systolic blood pressure 116 mm[Hg] Feliciano Ga Other [employer] Other 01-05-2021 15:22-0400 Body height 167.64 cm Feliciano Ga Work Phone: [facility] 250 DO Work Phone: 01-05-2021 15:22-0400 Body mass index (BMI) [Ratio] 33.25 kg/m2 Feliciano Ga Work Phone: [facility] 250 DO Work Phone: 01-05-2021 15:22-0400 Body surface area Derived from formula 2.03 m2 Feliciano Ga Work Phone: [facility] 250 DO Work Phone: 01-05-2021 15:22-0400 Body weight 93.44 kg Feliciano Ga Work Phone: [facility] 250 DO Work Phone: 01-05-2021 15:22-0400 Diastolic blood pressure 84 mm[Hg] Feliciano Ga Work Phone: [facility] 250 DO Work Phone: 01-05-2021 15:22-0400 Heart rate 56 /min Feliciano Ga Work Phone: [facility] 250 DO Work Phone: 01-05-2021 15:22-0400 Systolic blood pressure 126 mm[Hg] Feliciano Ga Work Phone: [facility] 250 DO Work Phone: Encounters Encounter Date Encounter Type Care Provider Facility Start: 04-18-2023 End: 04-19-2023 ambulatory Diana Price MD Facility: [facility] Start: 04-04-2023 End: 04-05-2023 ambulatory Diana Price MD Facility: [facility] Start: 03-18-2023 End: 03-18-2023 ambulatory Feliciano Ga Other [facility] [employer] Other Start: 03-18-2023 Office outpatient visit 25 minutes Feliciano [facility] [place] Start: 03-14-2023 End: 03-15-2023 ambulatory Diana Price MD Facility: [facility] Start: 01-10-2023 End: 01-11-2023 ambulatory Diana Price MD Facility:[facility] [place] Start: 12-31-2022 End: 12-31-2022 ambulatory Feliciano Ga Other [employer] Other Start: 12-31-2022 Telephone encounter Feliciano Ga [facility] [place] Start: 12-06-2022 End: 12-06-2022 ambulatory Feliciano Ga Other [employer] Other Start: 12-06-2022 Telephone encounter Feliciano Ga [facility] [place] Start: 11-30-2022 End: 11-30-2022 ambulatory Feliciano Ga Other [employer] Other Start: 11-30-2022 Telephone encounter Feliciano Ga [facility] Start: 10-14-2022 ambulatory DOMINIC WALLACE . Facili ty:H1 Start: 09-15-2022 End: 09-15-2022 ambulatory Feliciano Ga Other [employer] Other Start: 09-15-2022 Office outpatient visit 15 minutes Feliciano Ga [facility] Start: 09-10-2022 Chart Update Feliciano Ga Work Phone: [facility] 250 DO Work Phone: Start: 09-08-2022 Telephone encounter Feliciano Ga [facility] Start: 09-08-2022 End: 09-08-2022 ambulatory Feliciano Ga Facility:[facility] Start: 09-08-2022 End: 09-08-2022 ambulatory DO Feliciano Ga Work Phone: [facility] Work Phone: Start: 09-08-2022 End: 09-08-2022 Patient encounter procedure DO Feliciano Ga Work Phone: [facility] [place] Work Phone: Start: 08-30-2022 Rx Renewal Feliciano Ga Work Phone: [facility] 250 DO Work Phone: Start: 07-08-2022 End: 07-09-2022 ambulatory YANNI CAICEDO . Facility:[facility] Start: 07-07-2022 Office outpatient visit 15 minutes Feliciano Ga Work Phone: [facility] 250 DO Work Phone: Start: 07-07-[address] Feliciano Ga Facility: Start: 06-07-2022 End: 06-07-2022 ambulatory Feliciano Ga Other [employer] Other Start: 06-07-2022 Office outpatient visit 25 minutes Feliciano Ga [facility] Start: 06-01-2022 End: 06-01-2022 ambulatory Feliciano Ga Other [employer] Other Start: 06-01-2022 Telephone encounter Feliciano Ga [facility] [place] Start: 05-13-2022 End: 05-14-2022 ambulatory EDILMA MANDEL Facility:[facility]1 Start: 05-11-2022 End: 05-11-2022 ambulatory Feliciano Ga Other [employer] Other Start: 05-11-2022 Telephone encounter Feliciano Ga [facility] [place] Start: 04-15-2022 End: 04-16-[address] TROY BRAMBILA . Facility:[facility]1 Start: 04-12-2022 End: 04-12-2022 ambulatory Feliciano Ga Facility:[facility] Start: 04-12-2022 End: 04-12-2022 ambulatory DO Feliciano Ga Work Phone: [facility] Work Phone: Start: 04-12-2022 End: 02-06-2023 Discharged Recurring DO Feliciano Ga Work Phone: [facility] [place] Work Phone: Start: 03-30-2022 End: 03-30-[address] TROY BRAMBILA . Facility: Start: 03-29-2022 Rx Renewal Feliciano Myers Harmeet Work Phone: [facility] 250 DO Work Phone: Start: 03-19-2022 ambulatory Marv Drew Facility : Start: 03-15-2022 ambulatory Ms. Mcdaniels Raegan Gomez Facility: Start: 03-15-2022 Patient encounter procedure Felicianoamaduo Ga Work Phone: [facility] 250 DO Work Phone: Start: 03-15-2022 Chart Update Feliciano Myers Harmeet Work Phone: [facility] 250 DO Work Phone: Start: 03-11-2022 End: 03-11-2022 ambulatory Feliciano Ga Facility:[facility] Start: 03-11-2022 Registered Recurring DO Feliciano Ga Work Phone: [facility] [place] Work Phone: Start: 03-11-2022 End: 03-11-2022 ambulatory DO Felicianoamadou Ga Work Phone: [facility] Work Phone: Start: 03-11-2022 End: 03-11-2022 Patient encounter procedure DO Felicianoamadou Ga Work Phone: [facility] [place] Work Phone: Start: 03-10-2022 FUV, Provider: Enedelia Mix, Status: Pen, Time: 2:30 PM Feliciano Ga Work Phone: [facility] 250 DO Work Phone: Start: 03-10-2022 Office outpatient visit 25 minutes Feliciano Myers Tjcatie Work Phone: [facility] 600 DO Work Phone: Start: 03-10-2022 Patient encounter procedure Feliciano Ga Work Phone: [facility] 250 DO Work Phone: Start: 03-10-2022 ambulatory Ms. Enedelia Gomez Facility: Start: 03-09-2022 End: 03-09-2022 ambulatory Feliciano Ga Other [employer] Other Start: 03-09-2022 Office outpatient visit 15 minutes Feliciano Ga [facility] [place] Start: 03-04-2022 End: 03-04-2022 ambulatory Feliciano Ga Other [employer] Other Start: 03-04-2022 Telephone encounter Feliciano Harmeet [facility] [place] Start: 03-03-2022 Rx Renewal Feliciano Ga Work Phone: [facility] 250 DO Work Phone: Start: 03-03-2022 End: 03-03-2022 ambulatory Feliciano Ga Other [employer] Other Start: 03-03-2022 Telephone encounter Felicianoamadou Ga [facility] [place] Start: 02-18-2022 End: 02-19-[address] TROY BRAMBILA . Facility: Start: 02-15-2022 Rx Renewal Feliciano Ga Work Phone: [facility] 250 DO Work Phone: Start: 02-09-2022 End: 02-09-2022 ambulatory Feliciano Ga Other [employer] Other Start: 02-09-2022 Office outpatient visit 25 minutes Feliciano Harmeet [facility] Start: 01-13-2022 End: 01-13-2022 ambulatory Feliciano Harmeet Other [employer] Other Start: 01-13-2022 Telephone encounter Feliciano Ga [facility] Start: 01-12-[address] Feliciano Ga Facility:[id number] Start: 01-11-2022 ambulatory Marv Drew Facility :[id number] Start: 01-10-[address] Feliciano Ga Facility:[id number] Start: 01-09-2022 End: 01-16-2022 Evaluation and management of inpatient Feliciano Ga Facility:[facility] Start: 01-09-2022 End: 01-16-2022 Evaluation and management of inpatient DO Feliciano Ga Work Phone: [facility] [place] [facility] Start: 01-07-2022 End: 01-07-2022 ambulatory Feliciano Harmeet Other [employer] Other Start: 01-07-2022 Office outpatient visit 25 minutes Feliciano Ga [facility] Start: 12-25-2021 End: 12-25-2021 ambulatory Feliciano Harmeet Other [employer] Other Start: 12-25-2021 Telephone encounter Feliciano Harmeet [facility] Start: 12-17-2021 End: 12-18-[address] TROY BRAMBILA . Facility:[facility]1 Start: 12-17-2021 End: 12-17-2021 ambulatory DO Feliciano Harmeet Work Phone: [facility] Work Phone: Start: 12-17-2021 End: 12-17-2021 Patient encounter procedure DO Feliciano Ga Work Phone: [facility] [place] Start: 12-01-2021 End: 12-01-[address] TROY BRAMBILA . Facility:[facility]1 Start: 11-12-2021 End: 11-13-[address] NELSY GA Facility:H1 Start: 10-12-2021 End: 10-12-2021 ambulatory Feliciano Ga Other [employer] Other Start: 10-12-2021 Office outpatient visit 15 minutes Feliciano Ga [facility] [place] Start: 09-28-2021 Telephone encounter Feliciano Ga [facility] [place] Start: 09-28-2021 End: 09-28-2021 ambulatory Monserrat Rodarte [employer] Other Start: 09-28-2021 End: 09-28-2021 Discharged Recurring DO Feliciano Ga Work Phone: [facility]-Physical [facility] [place] Start: 09-11-2021 End: 09-11-2021 ambulatory Feliciano Ga Other [employer] Other Start: 09-11-2021 Nursing evaluation o f patient and report Feliciano Ga [facility] [place] Start: 09-10-2021 Telephone encounter Feliciano Ga [facility] [place] Start: 09-10-2021 End: 09-11-[address] NELSY GA [facility] Other Start: 09-04-2021 End: 09-04-2021 ambulatory Feliciano Ga Other [employer] Other Start: 09-04-2021 Telephone encounter Feliciano Ga [facility] [place] Start: 08-31-2021 End: 08-31-2021 ambulatory Feliciano Ga Other [employer] Other Start: 08-31-2021 Office outpatient visit 25 minutes Feliciano Ga [facility] [place] Start: 08-17-2021 End: 08-18-[address] TROY BRAMBILA . Facility:[facility]1 Start: 08-13-2021 End: 08-14-[address] TROY BRAMBILA . Facility:[facility]1 Start: 08-04-2021 Office outpatient visit 15 minutes Feliciano Ga Work Phone: [facility] 250 DO Work Phone: Start: 08-04-[address] Feliciano Ga Facility: Start: 07-28-2021 End: 07-28-[address] TROY BRAMBILA . Facility:[facility]1 Start: 05-25-2021 End: 05-25-2021 ambulatory Feliciano Ga Other [employer] Other Start: 05-25-2021 Telephone encounter Feliciano Ga [facility] Start: 03-23-2021 Rx Renewal Feliciano Ga Work Phone: [facility] 250 DO Work Phone: Start: 03-11-2021 End: 03-11-2021 ambulatory Feliciano Ga Other [employer] Other Start: 03-11-2021 Telephone encounter Feliciano Ga [facility] [place] Start: 03-05-2021 End: 03-05-2021 ambulatory Feliciano Ga Other [employer] Other Start: 03-05-2021 Telephone encounter Feliciano Ga [facility] Start: 02-17-2021 Rx Renewal Feliciano Ga Work Phone: [facility] 250 DO Work Phone: Start: 01-19-2021 End: 01-19-2021 ambulatory Feliciano Ga Other [employer] Other Start: 01-19-2021 Office outpatient visit 25 minutes Feliciano Ga [facility] [place] Start: 01-16-2021 Rx Renewal Feliciano Ga Work Phone: [facility] 250 DO Work Phone: Start: 01-13-2021 Rx Renewal Feliciano Ga Work Phone: [facility] 250A [place] Work Phone: Start: 01-05-2021 Office outpatient visit 15 minutes Feliciano Ga Work Phone: [facility] 250 DO Work Phone: Start: 01-05-2021 Patient encounter procedure Feliciano Ga Work Phone: [facility] 250 DO Work Phone: Start: 12-15-2016 End: 12-16-2016 Ambulatory [facility] Facility:[facility] Procedures Date Procedure Procedure Detail Performing Clinician [...] Feliciano Ga Work Phone: Comment on above: [facility]; Arthroplasty of knee Feliciano Ga Work Phone: Comment on above: 2016 and 2020; Arthroscopy of shoulder Daniella Ga Work Phone: Cardiac catheterization Edmonda n Louis Ga Work Phone: Epidural steroid injection B molly [...] Irineo Mcintyre, Status: Pen, Time: 9:40 AM [facility] 250 DO Work Phone: Start: 07-07-2022 FUV, Provider: Irineo Mcintyre, Status: Pen, Time: 9:20 AM FUV, Provider: Irineo Mcintyre, Status: Pen, Time: 9:20 AM [facility] 250 DO Work Phone: Start: 03-15-2022 HOLTER MON, Provider : LEVAR MARES LATENT PRINT EXAMINER 1,[id number], Status: Pen, Time: 10:30 AM HOLTER MON, Provider: LEVAR MARES LATENT PRINT EXAMINER 1,[id number], Status: Pen, Time: 10:30 AM [facility] 250 DO Work Phone: Start: 03-10-2022 FUV, Provider: Enedelia Mix, Status: Pen, Time: 2:30 PM FUV, Provider: Enedelia Mix, Status: Pen, Time: 2:30 PM [facility] 250 DO Work Phone: Start: 01-16-2022 [facility] Start: 01-12-2022 Referral to infectio us diseases physician [facility] Start: 01-09-2022 Referral to neurologist [facility] Start: 01-09-2022 Referral to Tufting Machine Operator Single Needle [facility] Start: 01-09-2022 Hospital admission [facility] Start: 01-09-2022 [facility] Start: 07-08-2021 FUV, Provider: Irineo Mcintyre, Status: Pen, Time: 9:50 AM [facility] 250 DO Work Phone: Start: 06-16-2021 FUV, Provider: Irineo Mcintyre, Status: Pen, Time: 9:30 AM FUV, Provider: Irineo Mcintyre, Status: Pen, Time: 9:30 AM [facility] 250 DO Work Phone: Anion gap measurement [facility] Work Phone: Bacteria identified in Urine by Culture Urine Culture [facility] Basophil count [facility] Work Phone: Basophil percent differential count [facility] Work Phone: Blood culture for bacteria, including anaerobic screen Blood Culture [facility] Calcium [Mass/volume ] in Serum or Plasma [facility] Work Phone: Carbon dioxide, tota l [Moles/volume] in Serum or Plasma [facility] Work Phone: Chloride [Moles/volu me] in Serum or Plasma [facility] Work Phone: Creatinine and Glome rular filtration rate.predicted panel - Serum, Plasma or Blood [facility] Work Phone: Eosinophil percent differential count [facility] Work Phone: Eosinophils [#/volum e] in Blood [facility] Work Phone: Erythrocyte mean corpuscular volume determination [facility] Work Phone: Erythrocytes [#/volu me] in Blood [facility] Work Phone: Glucose [Mass/volume ] in Serum or Plasma [facility] Work Phone: Hematocrit [Volume Fraction] of Blood [facility] Work Phone: Hemoglobin [Mass/vol ume] in Blood [facility] Work Phone: Hemoglobin distribut ion, width determination [facility] Work Phone: Leukocytes [#/volume ] in Blood [facility] Work Phone: Lymphocyte count [facility] Work Phone: Lymphocyte percent differential count [facility] Work Phone: Mean corpuscular hemoglobin concentration determination [facility] Work Phone: Mean corpuscular hemoglobin determination [facility] Work Phone: Measurement of renal function [facility] Work Phone: Monocyte count [facility] Work Phone: Monocyte percent differential count [facility] Work Phone: [facility]rophil count [facility] Work Phone: Neutrophil percent differential count [facility] Work Phone: Patient referral [facility] Work Phone: Platelet mean volume determination [facility] Work Phone: Platelets [#/volume] in Blood [facility] Work Phone: Potassium [Moles/vol ume] in Serum or Plasma [facility] Work Phone: Sodium [Moles/volume ] in Serum or Plasma [facility] Work Phone: Urea nitrogen [Mass/volume] in Serum or Plasma [facility] Work Phone: Immunizations Immunization Date Immunization Notes Care Provider Chelsi valdovinos 12-17-2022 influenza, high dose seasonal, preservative-free Feliciano Ga Other [facility] [employer] Other 12-24-2021 influenza, seasonal, injectable Feliciano Ga Other [employer] Other 12-24-2021 COVID-19 Moderna (BIvalent) Feliciano Ga Other [facility] [employer] Other 12-24-2021 Fluzone High-Dose Quadrivalent 0.7 ML Intramuscular Suspension Prefilled Syringe Feliciano Ga Work Phone: [facility] 250 DO Work Phone: 02-18-2021 Moderna COVID-19 Vaccine 100 MCG/0.5ML Intramuscular Suspension Feliciano Ga Work Phone: [facility] 250 DO Work Phone: 05-28-2020 Moderna COVID-19 Vaccine 100 MCG/0.5ML Intramuscular Suspension Feliciano Ga Work Phone: [facility] 250 DO Work Phone: 05-05-2020 COVID-19 Vaccine Moderna - Documentation Purposes Only Feliciano Ga Other [facility] [employer] Other 04-30-2020 Moderna COVID-19 Vaccine 100 MCG/0.5ML Intramuscular Suspension Feliciano Ga Work Phone: [place] [address] DO Work Phone: 04-14-2020 Moderna COVID-19 Vaccine 100 MCG/0.5ML Intramuscular Suspension Feliciano Ga Work Phone: [place] [address] DO Work Phone: 12-22-2019 Fluzone High-Dose Quadrivalent 0.7 ML Intramuscular Suspension Prefilled Syringe Feliciano Ga Work Phone: [facility] 12-06-2019 influenza, seasonal, injectable Feliciano Ga Work Phone: [place] [address] DO Work Phone: 11-22-2018 influenza, seasonal, injectable Feliciano Ga Other [facility] [employer] Other 11-20-2018 Seasonal trivalent influenza vaccine, adjuvanted, preservative free Feliciano Ga Work Phone: [place] [address] DO Work Phone: 11-05-2018 influenza virus vaccine, unspecified formulation Feliciano Ga Work Phone: [place] [address] DO Work Phone: 12-06-2017 influenza, high dose seasonal, preservative-free Feliciano Ga Work Phone: [facility] [employer] 250 DO Work Phone: 12-05-2017 influenza, seasonal, injectable Feliciano Tjcatie Other [employer] Other 11-05-2017 influenza virus vaccine, unspecified formulation Feliciano Spencercatie Work Phone: [facility] [employer] 250 DO Work Phone: 04-07-2016 influenza virus vaccine, unspecified formulation Felicianoamadou Spencercatie Work Phone: [facility] [employer] DO Work Phone: 04-07-2016 pneumococcal conjuga te vaccine, 13 valent Felicianoamadou Spencercatie Work Phone: [facility] [employer] DO Work Phone: 01-24-2012 Kenalog 40/Xylocaine Feliciano glaser Other [facility] Other Payers Date Payer Category Payer Medicare 2022 Unknown 2021 Self-pay [id number] 2016 Medicare [id number] 1959 [facility] [id number] 1959 Medicare [id number] 2.1 6.840.1.820830.19 1941 Unknown [id number] 2.16. 840.1.871386.3.579.2.356 1941 Unknown [id number] 2.16. 840.1.249799.3.579.2.356 1941 Unknown [id number] 2.16. 840.1.921238.3.579.2.356 1941 Unknown [id number] 2.16. 840.1.517914.3.579.2.356 1941 Unknown [id number] 2.16. 840.1.149141.3.579.2.356 1941 Unknown [id number] 2.16. 840.1.651196.3.579.2.356 1941 Unknown [id number] 2.16. 840.1.675706.3.579.2.356 1941 Unknown [id number] 2.16. 840.1.661994.3.579.2.356 1941 Unknown [id number] 2.16. 840.1.924780.3.579.2.356 1941 Unknown [id number] 2.16.84 0.1.763144.3.579.2.593 1941 Unknown [id number] 2.16.84 0.1.601072.3.579.2.593 1941 Unknown [id number] 2.16.84 0.1.132909.3.579.2.593 1941 Unknown [id number] 2.16.84 0.1.386635.3.579.2.593 1941 Unknown [id number] 2.16.84 0.1.836129.3.579.2.593 1941 Unknown [id number] 2.16.84 0.1.704206.3.579.2.593 1941 Unknown [id number] 2.16.84 0.1.859947.3.579.2.593 1941 Unknown [id number] 2.16.84 0.1.338743.3.579.2.593 1941 Unknown [id number] 2.16.84 0.1.479025.3.579.2.593 1941 Unknown [id number] 2.16.84 0.1.595464.3.579.2.593 1941 Unknown [id number] 2.16.84 0.1.299018.3.579.2.593 1941 Unknown [id number] 2.16.84 0.1.933340.3.579.2.593 1941 Unknown [id number] 2.16.84 0.1.955779.3.579.2.593 1941 Unknown [id number] 2.16. 840.1.638908.3.579.2.196 1941 Unknown [id number] 2.16. 840.1.436106.3.579.2.196 1941 Unknown [id number] 2.16. 840.1.671806.3.579.2.196 1941 Unknown [id number] 2.16. 840.1.689581.3.579.2.196 Unknown [id number] 2.16.8 40.1.212869.3.579.2.531 Unknown [id number] 2.16.8 40.1.690611.3.579.2.531 Unknown [id number] 2.16.8 40.1.222429.3.579.2.531 Unknown [id number] 2.16.8 40.1.149934.3.579.2.531 Unknown [id number] 2.16.8 40.1.662702.3.579.2.531 Unknown [id number] 2.16.8 40.1.082067.3.579.2.531 Social History Date Type Detail Facility Daily alcohol use Daily alcohol use [facility] 250 DO Work Phone: Comment on above: 1-2 beers; Coffee 2 cups daily; Quit smoking in 1979 ; Sex Assigned At Sex Assigned At [facility] Other Start: 12-26-2019 End: 01-13-2022 Tobacco smoking status NHIS Ex-smoker (finding) [facility] Start: 1940 Sex Assigned At Male F [facility] Medical Equipment Procedure Code Equipment Code Equipment Origin al Text Equipment Identifier Dates Arthroplasty, knee, total, minimally invasive ART SURF LEFT [id number] FDA Start: 11-05-2019 Arthroplasty, knee, total, minimally invasive Orthopaedic cement, non-medicated [id number] FDA Start: 11-05-2019 Arthroplasty, knee, total, minimally invasive Uncoated knee femur prosthesis ()[id number] FDA Start: 11-05-2019 Arthroplasty, knee, total, minimally invasive Uncoated knee tibia prosthesis, metallic ()[id number] FDA Start: 11-05-2019 Arthroplasty, knee, total, minimally invasive Polyethylene patella prosthesis ()[id number] FDA Start: 11-05-2019 Arthroplasty, knee, total, minimally [...] status Patient is Pro gressing Toward [facility] Work Phone: Mental Status Date Assessment Result Facility 01-16-2022 Cognitive function Cognitive Sta tus Patient at [facility] Work Phone: Clinical Notes 05-23-2006 to 03-18-2023 Note Date & Type Note Facility 03-18-2023 Evaluation note Encounter Date Diagnosis Assessment Notes Mar, Lumbar degenerative disc disease (ICD-10 - M51.36) Patient is following with pain management at [place], had a recent branch block. He is [...] above medication. We will continue to monitor. Mavin Other 10-02-2023 Evaluation note* Encounter Date Diagnosis Assessment Notes Treatment Notes Treatment Clinical Notes Dec, Insomnia (ICD-10 - G47.00) Mavin Other 09-26-2023 Evaluation note* Encounter Date Diagnosis Assessment Notes Treatment Notes Treatment Clinical Notes Nov, Gout (ICD-10 - M10.9) Mavin Other 07-12-2023 Evaluation note* Encounter Date Diagnosis [...] the care of pain management out of [place]. States the pain is slightly improved and [...] to thin out the secretions. Rx sent [facility] Other 07-05-2023 Evaluation note* Encounter Date Diagnosis Assessment Notes Treatment Notes Treatment Clinical Notes Sep, Hyperlipidemia (ICD-10 - E78.5) Sep, Insomnia (ICD-10 - G47.00) Sep, Hypothyroidism, unspecified (ICD-10 - E03.9) Mavin Other 04-03-2023 Evaluation note* Encounter Date Diagnosis Assessment Notes Treatment Notes Treatment Clinical Notes Jun, Lumbar degenerative disc disease (ICD-10 - M51.36) I am in agreement the patient keep the above medication on hand to use sparingly for back pain and to continue following with Pain Management. The patient states he does still go to the [facility] for hunting trips with a group [...] Screening for prostate cancer (ICD-10 - Z12.5) Mavin Other 03-28-2023 Evaluation note* Encounter Date Diagnosis Assessment Notes Treatment Notes Treatment Clinical Notes May, Insomnia (ICD-10 - G47.00) Mavin Other 03-07-2023 Evaluation note* Encounter Date Diagnosis Assessment Notes Treatment Notes Treatment Clinical Notes May, Atrial fibrillation (ICD-10 - I48.91) Mavin Other 02-09-2023 NoteCONSULTATION CONSULTATION DATE: 04/15/2022 HISTORY [...] in the clinic in three months' time.[id number]* Encounter Date Diagnosis Assessment Notes [...] wear a hat out in the sun. Mavin Other 12-29-2022 Evaluation note* Encounter Date Diagnosis Assessment Notes Treatment Notes Treatment Clinical Notes Feb, Insomnia (ICD-10 - G47.00) Feb, Hypothyroidism, unspecified (ICD-10 - E03.9) Mavin Other 12-28-2022 Evaluation note* Encounter Date Diagnosis Assessment Notes Treatment Notes Treatment Clinical Notes Feb, Insomnia (ICD-10 - G47.00) Feb, Hypothyroidism, unspecified (ICD-10 - E03.9) Mavin Other 12-15-2022 NoteCONSULTATION CONSULTATION DATE: 02/18/2022 HISTORY [...] move forward with the plan of care.[id number] Evaluation note* Encounter Date Diagnosis Assessment Notes Treatment Notes Treatment Clinical Notes Feb, Lumbar degenerative disc disease (ICD-10 - M51.36) Daughter feels that patient was doing quite well while he was getting daily PT at [facility], however now that he has [...] upon examination, continue using the above powder. Mavin Other 11-11-2022 Progress note [facility] January 15, 2022 4:51pm Note Date/Time January 15, 2022 4:51pm [facility] [address] [place] [address] Hospitalist Progress Note Signed Patient: Irineo Wallis Jr MR# : [id number] : 1940 Acct:[id number] Age/Sex: 81 / M Adm Date: 2 Loc: 3T Room: [address] [place] [address] Type: ADM IN Attending Dr: Raji Ennis [...] mg 01/09/22 14:41 Bisacodyl 10 Mg Supp.Rect AR 01/09/23 14:40 DAILY PRN Constipation Bisacodyl 10 mg 01/09/22 14:41 01/15/22 14:16 Bisacodyl 5 Mg Tablet.Dr PO 01/09/23 14:40 10 mg DAILY PRN Administration Constipation Bumetanide 1 mg 01/14/22 16:00 01/15/22 08:46 Bumetanide 1 Mg Tablet PO 01/14/23 15:59 1 mg DAILY@0800 [facility] Administration Docusate Sodium 100 mg 01/09/22 21:00 01/15/22 08:46 Docusate 100 Mg Capsule PO 01/09/23 20:59 100 mg BID ANIBAL Administration Fluticasone Propionate 1 spray 01/09/22 15:17 Fluticasone Propionate Wallace 120 Wallace/16 Gm Bottle NARES-BOTH 01/09/23 15:16 QHS PRN Nasal Congestion Magnesium Sulfate 2 gm in 50 mls @ 25 mls/hr 01/09/22 14:41 Magnesium Sulf 2gm-*Swfi* IV 01/09/23 14:40 DAILY PRN Magnesium Level < 1.5 Levothyroxine Sodium 150 mcg 01/10/22 06:30 01/15/22 06:38 Levothyroxine 150 Mcg Tablet PO 01/10/23 06:29 Not Given DAILY@0630 [facility] Magnesium Hydroxide 30 ml 01/09/22 14:41 01/15/22 [...] tomorrow. Documented By: Raji Ennis MD 01/15/22 1621 Signed By: <Electronically signed by Raji Ennis MD> 01/15/22 1651 [facility] Work Phone: 1(143) 815-196511-11-2022 Progress note Author Victor Manuel Reynolds [facility] January 15, 2022 12:21pm Note Date/Time January 15, 2022 12:21pm [facility] [address] [place] [address] Infect. Disease Progress Note Signed Patient: Irineo Wallis Jr MR# : [id number] : 1940 Acct:[id number] Age/Sex: 81 / M Adm Date: 2 Loc: Room: [address] [place] [address] Type: ADM IN Attending Dr: Raji Ennis [...] 300 Mg Tablet) 300 mg PO DAILY [facility] Stop: 01/10/23 08:59 Last Admin: 01/15/22 08:46 Dose: 300 mg Apixaban (Apixaban 5 Mg Tablet) 5 mg PO BID [facility] Stop: 01/09/23 20:59 Last Admin: 01/15/22 08:46 Dose: 5 mg Atorvastatin Calcium (Atorvastatin 40 Mg Tablet) 40 mg PO QHS ANIBAL Stop: 01/09/23 21:59 Last Admin: 01/14/22 21:32 Dose: 40 mg Bisacodyl (Bisacodyl 10 Mg Supp.Rect) 10 mg AR DAILY PRN PRN Reason: Constipation Stop: 01/09/23 14:40 Bisacodyl (Bisacodyl 5 Mg Tablet.Dr) 10 mg PO DAILY PRN PRN Reason: Constipation Stop: 01/09/23 14:40 Last Admin: 01/14/22 19:57 Dose: 10 mg Bumetanide (Bumetanide 1 Mg Tablet) 1 mg PO DAILY@0800 [facility] Stop: 01/14/23 15:59 Last Admin: 01/15/22 08:46 Dose: 1 mg Docusate Sodium (Docusate 100 Mg Capsule) 100 mg PO BID ANIBAL Stop: 01/09/23 20:59 Last Admin: 01/15/22 08:46 Dose: 100 mg Fluticasone Propionate (Fluticasone Propionate Wallace 120 Wallace/16 Gm Bottle) 1 spray NARES-BOTH QHS PRN PRN Reason: Nasal Congestion Stop: 01/09/23 15:16 Magnesium Sulfate (Magnesium Sulf 2gm-*Swfi*) 2 gm in 50 mls @ 25 mls/hr IV DAILY PRN PRN Reason: Magnesium Level < 1.5 Stop: 01/09/23 14:40 Levothyroxine Sodium (Levothyroxine 150 Mcg Tablet) 150 mcg PO DAILY@0630 [facility] Stop: 01/10/23 06:29 Last Admin: 01/15/22 06:38 [...] 3 Mg (Tablet) 3 mg PO HS [facility] Stop: 01/11/23 21:59 Last Admin: 01/14/22 21:32 Dose: 3 mg Nystatin (Nystatin 100,000 Unit/Gram Powder 15 Gm Bottle) 1 applic TOPICAL TID [facility] Stop: 01/09/23 21:59 Last Admin: 01/15/22 08:46 [...] 20 Meq Tab.Er.Prt) 20 meq PO QPM [facility] Stop: 01/09/23 20:59 Last Admin: 01/14/22 21:32 [...] signed by MD Victor Manuel Reynolds> 01/15/221220 [facility] Work Phone: 1([phone] 337-388711-10-2022 Progress note Author Raji Ennis [facility] January 14, 2022 5:43pm Note Date/Time January 14, 2022 5:43pm [facility] [address] [place] [address] Hospitalist Progress Note Signed Patient: Irineo Wallis Jr MR# : [id number] : 1940 Acct:[id number] Age/Sex: 81 / M Adm Date: 2 Loc: Room: [address] [place] [address] Type: ADM IN Attending Dr: Raji Ennis [...] mg 01/09/22 14:41 Bisacodyl 10 Mg Supp.Rect AR 01/09/23 14:40 DAILY PRN Constipation Bisacodyl 10 [...] Propionate 1 spray 01/09/22 15:17 Fluticasone Propionate Wallace 120 Wallace/16 Gm Bottle NARES-BOTH 01/09/23 15:16 QHS PRN [...] <Electronically signed by Raji Ennis MD> 01/14/221742 [facility] Work Phone: [phone] 452-782811-10-2022 Progress note Author Victor Manuel Reynolds [facility] January 14, 2022 9:39am Note Date/Time January 14, 2022 9:39am [facility] [address] [place] [address] Infect. Disease Progress Note Signed Patient: Irineo Wallis Jr MR# : [id number] : 1940 Acct:[id number] Age/Sex: 81 / M Adm Date: 2 Loc: Room: [address] [place] [address] Type: ADM IN Attending Dr: Raji Ennis [...] Appearance Clear Urine pH 5.5 Ur Specific [place] 1.012 Urine Protein 30 H Urine Glucose [...] 300 Mg Tablet) 300 mg PO DAILY [facility] Stop: 01/10/23 08:59 Last Admin: 01/14/22 08:04 Dose: 300 mg Apixaban (Apixaban 5 Mg Tablet) 5 mg PO BID [facility] Stop: 01/09/23 20:59 Last Admin: 01/14/22 08:04 Dose: 5 mg Atorvastatin Calcium (Atorvastatin 40 Mg Tablet) 40 mg PO QHS [facility] Stop: 01/09/23 21:59 Last Admin: 01/13/22 21:26 Dose: 40 mg Bisacodyl (Bisacodyl 10 Mg Supp.Rect) 10 mg AR DAILY PRN PRN Reason: Constipation Stop: 01/09/23 14:40 Bisacodyl (Bisacodyl 5 Mg Tablet.Dr) 10 mg PO DAILY PRN PRN Reason: Constipation Stop: 01/09/23 14:40 Last Admin: 01/13/22 21:26 Dose: 10 mg Bumetanide (Bumetanide 1 Mg Tablet) 1 mg PO BID@0800,1600 [facility] Stop: 01/13/23 15:59 Docusate Sodium (Docusate 100 Mg Capsule) 100 mg PO BID [facility] Stop: 01/09/23 20:59 Last Admin: 01/14/22 08:03 Dose: 100 mg Fluticasone Propionate (Fluticasone Propionate Wallace 120 Wallace/16 Gm Bottle) 1 spray NARES-BOTH QHS PRN PRN Reason: Nasal Congestion Stop: 01/09/23 15:16 Magnesium Sulfate (Magnesium Sulf 2gm-*Swfi*) 2 gm in 50 mls @ 25 mls/hr IV DAILY PRN PRN Reason: Magnesium Level < 1.5 Stop: 01/09/23 14:40 Cefepime HCl (Maxipime) 2 gm in 50 mls @ 100 mls/hr IV Q12H [facility] Last Admin: 01/14/22 03:05 Dose: 100 mls/hr Vancomycin HCl 1.25 gm/ (Dextrose) 275 mls @ 183.333 mls/hr IV Q24H [facility] Stop: 01/13/23 18:59 Last Infusion: 01/13/22 21:17 Dose: Infused Levothyroxine Sodium (Levothyroxine 150 Mcg Tablet) 150 mcg PO DAILY@0630 [facility] Stop: 01/10/23 06:29 Last Admin: 01/14/22 05:54 Dose: 150 mcg Magnesium Hydroxide (Magnesium Hydroxide Susp 30 Ml Udc) 30 ml PO BID PRN PRN Reason: Constipation Stop: 01/09/23 14:40 Magnesium Oxide (Magnesium Oxide 400 Mg Tablet) 400 mg PO DAILY [facility] Stop: 01/10/23 08:59 Last Admin: 01/14/22 08:04 Dose: 400 mg Nitroglycerin (Nitroglycerin 0.4 Mg Tab.Subl) 0.4 mg SUBLINGUAL Q5MIN.X3 PRN PRN Reason: Chest Pain Stop: 01/09/23 14:40 Pom Eszopiclone 3 Mg (Tablet) 3 mg PO HS [facility] Stop: 01/11/23 21:59 Last Admin: 01/13/22 21:27 Dose: 3 mg Nystatin (Nystatin 100,000 Unit/Gram Powder 15 Gm Bottle) 1 applic TOPICAL TID [facility] Stop: 01/09/23 21:59 Last Admin: 01/14/22 08:04 [...] signed by MD Victor Manuel Reynolds> 01/14/22938 [facility] Work Phone: [phone] Progress note Author Mani Dickens [facility] January 13, 2022 6:10pm Note Date/Time January 13, 2022 8 :13am [facility] [address] [place] [address] Neurology Progress Note Signed with Addenda Patient: Irineo Wallis Jr MR# : [id number] : 1940 Acct:[id number] Age/Sex: 81 / M Adm Date: 2 Loc: Room: [address] [place] [address] Type: ADM IN Attending Dr: Raji Ennis [...] extremities * Unable to test finger-nose or ffnd-ko-ckqo due to drowsiness REFLEX EXAM: * 1/4 [...] Therapy Recommendations: OT Recommendations OT Recommended Discharge Senior Living Facility Location OT Recommended Services at Physical Therapy,Occupational Therapy Discharge PT Recommendations PT Recommended Discharge Senior Living Facility Location PT Recommended Services at Physical [...] <Electronically signed by MEI Knight> 01/13/22 1520 [facility] Work Phone: [phone] Progress note Author Raji [facility] January 13, 2022 3:44pm Note Date/Time January 13, 2022 3 :27pm [facility] [address] [place] [address] Hospitalist Progress Note Signed Patient: Irineo Wallis Jr MR# : [id number] : 1940 Acct:[id number] Age/Sex: 81 / M Adm Date: 2 Loc: 3T Room: [id number] Type: ADM IN Attending Dr: Raji Ennis [...] Tablet PO 01/09/23 21:59 40 mg QHS AINBAL Administration Bisacodyl 10 mg 01/09/22 14:41 Bisacodyl 10 Mg Supp.Rect AR 01/09/23 14:40 DAILY PRN Constipation Bisacodyl 10 mg 01/09/22 14:41 01/12/22 08:22 Bisacodyl 5 Mg Tablet. PO 01/09/23 14:40 10 mg DAILY PRN Administration Constipation Bumetanide 1 mg 01/13/22 16:00 Bumetanide 1 Mg Tablet PO 01/13/23 15:59 BID@0800,1600 [facility] Docusate Sodium 100 mg 01/09/22 21:00 01/13/22 09:43 Docusate 100 Mg Capsule PO 01/09/23 20:59 100 mg BID ANIBAL Administration Fluticasone Propionate 1 spray 01/09/22 15:17 Fluticasone Propionate Wallace 120 Wallace/16 Gm Bottle NARES-BOTH 01/09/23 15:16 QHS PRN [...] <Electronically signed by Raji Ennis MD> 01/13/22 2393 [facility] Work Phone: [phone] Consult note Author Victor Manuel Reynolds [facility] January 13, 2022 10:45am Note Date/Time January 13, 2022 1 0:45am [facility] [address] [place] [address] Infect. Disease Consult Note Signed Patient: Irineo Wallis Jr MR# : [id number] : 1940 Acct:[id number] Age/Sex: 81 / M Adm Date: 2 Loc: Room: [address] [place] [address] Type: ADM IN Attending Dr: Raji Ennis [...] negative unless noted below or in HPI [facility] Attestation Statement: The following information was [...] Bisacodyl (Bisacodyl 10 Mg Supp.Rect) 10 mg AR DAILY PRN PRN Reason: Constipation Stop: 01/09/23 14:40 Bisacodyl (Bisacodyl 5 Mg Tablet.Dr) 10 mg PO DAILY PRN PRN Reason: Constipation Stop: 01/09/23 14:40 Last Admin: 01/12/22 08:22 Dose: 10 mg Bumetanide (Bumetanide 1 Mg/4 Ml Vial) 1 mg IV-PUSH BID@0800,1600 [facility] Stop: 01/13/23 07:59 Last Admin: 01/13/22 09:43 Dose: 1 mg Docusate Sodium (Docusate 100 Mg Capsule) 100 mg PO BID [facility] Stop: 01/09/23 20:59 Last Admin: 01/13/22 09:43 Dose: 100 mg Fluticasone Propionate (Fluticasone Propionate Wallace 120 Wallace/16 Gm Bottle) 1 spray NARES-BOTH QHS PRN PRN Reason: Nasal Congestion Stop: 01/09/23 15:16 Magnesium Sulfate (Magnesium Sulf 2gm-*Swfi*) 2 gm in 50 mls @ 25 mls/hr IV DAILY PRN PRN Reason: Magnesium Level < 1.5 Stop: 01/09/23 14:40 Cefepime HCl (Maxipime) 2 gm in 50 mls @ 100 mls/hr IV Q12H [facility] Last Admin: 01/13/22 03:07 Dose: 100 mls/hr Levothyroxine Sodium (Levothyroxine 150 Mcg Tablet) 150 mcg PO DAILY@0630 [facility] Stop: 01/10/23 06:29 Last Admin: 01/13/22 06:26 Dose: 150 mcg Magnesium Hydroxide (Magnesium Hydroxide Susp 30 Ml Udc) 30 ml PO BID PRN PRN Reason: Constipation Stop: 01/09/23 14:40 Magnesium Oxide (Magnesium Oxide 400 Mg Tablet) 400 mg PO DAILY [facility] Stop: 01/10/23 08:59 Last Admin: 01/13/22 09:43 Dose: 400 mg Nitroglycerin (Nitroglycerin 0.4 Mg Tab.Subl) 0.4 mg SUBLINGUAL Q5MIN.X3 PRN PRN Reason: Chest Pain Stop: 01/09/23 14:40 Pom Eszopiclone 3 Mg (Tablet) 3 mg PO HS [facility] Stop: 01/11/23 21:59 Last Admin: 01/12/22 22:51 Dose: 3 mg Nystatin (Nystatin 100,000 Unit/Gram Powder 15 Gm Bottle) 1 applic TOPICAL TID [facility] Stop: 01/09/23 21:59 Last Admin: 01/13/22 09:43 [...] by MD Victor Manuel Reynolds> 01/13/22 1045 [facility] Work Phone: [phone] 214-246411-08-2022 Progress note Author W Be [facility] January 12, 2022 6:11pm Note Date/Time January 12, 2022 6 :11pm [facility] [address] [place] [address] Cardiology Progress Note Signed Patient: Irineo Wallis Jr MR# : [id number] : 1940 Acct:[id number] Age/Sex: 81 / M Adm Date: 2 Loc: Room: [address] [place] [address] Type: ADM IN Attending Dr: Raji Ennis [...] % (Auto) 76.3 Lymph % (Auto) 12.2 [place] % (Auto) 9.1 Eos % (Auto) 1.9 Baso % (Auto) 0.5 Neut # (Auto) 7.7 Lymph # (Auto) 1.2 [place] # (Auto) 0.9 H Eos # (Auto) [...] 2.9 Globulin (PEP) 2.4 Albumin/Globulin (PEP) 1.2 Uvfyu-0-Asqudvuxs 0.4 Ijkca-4-Mfjnalvlu 0.7 Beta Globulins 0.6 L Gamma Globulins 0.8 M-Franky Not observed PEP Note IgG 816 IgA 171 IgM 105 Serum Immunofixation 01/12/22 06:42 Corrected WBC Uncorrected WBC Count RBC Hgb Hct MCV MCH MCHC RDW Plt Count MPV Neut % (Auto) Lymph % (Auto) [place] % (Auto) Eos % (Auto) Baso % (Auto) Neut # (Auto) Lymph # (Auto) [place] # (Auto) Eos # (Auto) Baso # (Auto) Nucleated RBC % (auto) PHA Creatinine Clear Sodium Potassium Chloride Carbon Dioxide Anion Gap BUN Creatinine Est GFR ( Amer) Est GFR (Non-Af Amer) Glucose Calcium C-Reactive Prot, Quant 8.4 H Serum Total Protein Albumin (Send Out) Globulin (PEP) Albumin/Globulin (PEP) Ghgdd-4-Hfxxquvnq Whikf-5-Vhlvqcoqv Beta Globulins Gamma Globulins M-Franky PEP Note [...] <Electronically signed by Bhupinder Mcintyre DO> 01/12/22 2584 [facility] Work Phone: [phone] Progress note Author aRji Ennis [facility] January 12, 2022 4:38pm Note Date/Time January 12, 2022 4 :38pm [facility] [address] [place] [address] Hospitalist Progress Note Signed Patient: Irineo Wallis Jr MR# : [id number] : 1940 Acct:[id number] Age/Sex: 81 / M Adm Date: 2 Loc: Room: [address] [place] [address] Type: ADM IN Attending Dr: Raji Ennis [...] mg 01/09/22 14:41 Bisacodyl 10 Mg Supp.Rect AR 01/09/23 14:40 DAILY PRN Constipation Bisacodyl 10 [...] Propionate 1 spray 01/09/22 15:17 Fluticasone Propionate Wallace 120 Wallace/16 Gm Bottle NARES-BOTH 01/09/23 15:16 QHS PRN [...] signed by Raji Ennis MD> 01/12/22 1638 [facility] Work Phone: [phone] Progress note Author Mani Dickens [facility] January 12, 2022 4:10pm Note Date/Time January 12, 2022 8 :19am [facility] [address] [place] [address] Neurology Progress Note Signed Patient: Irineo Wallis Jr MR# : [id number] : 1940 Acct:[id number] Age/Sex: 81 / M Adm Date: 2 Loc: Room: [address] [place] [address] Type: ADM IN Attending Dr: Raji Ennis [...] extremities * Unable to test finger-nose or hsfz-ec-bovn due to drowsiness REFLEX EXAM: * 1/4 [...] Therapy Recommendations: OT Recommendations OT Recommended Discharge Senior Living Facility Location OT Recommended Services at Physical Therapy,Occupational Therapy Discharge PT Recommendations PT Recommended Discharge Senior Living Facility Location PT Recommended Services at Physical [...] the plan of care and confirmed the DIRECTOR INPATIENT HEADACHE PROGRAM note The patient is an 81-year-old man [...] signed by MD Mani Dickens> 01/12/22 1610 [facility] Work Phone: [phone] Progress note Author Raji [facility] January 11, 2022 5:04pm Note Date/Time January 11, 2022 5 :04pm [facility] [address] [place] [address] Hospitalist Progress Note Signed Patient: Irineo Wallis Jr MR# : [id number] : 1940 Acct:[id number] Age/Sex: 81 / M Adm Date: 2 Loc: 3T Room: [address] [place] [address] Type: ADM IN Attending Dr: Raji Ennis [...] mg 01/09/22 14:41 Bisacodyl 10 Mg Supp.Rect AR 01/09/23 14:40 DAILY PRN Constipation Bisacodyl 10 [...] Propionate 1 spray 01/09/22 15:17 Fluticasone Propionate Wallace 120 Wallace/16 Gm Bottle NARES-BOTH 01/09/23 15:16 QHS PRN [...] Bottle TOPICAL 01/09/23 21:59 1 applic TID NAIBAL Administration Ondansetron HCl 4 mg 01/09/22 14:41 [...] prophylaxis Documented By: Raji Ennis MD 01/11/22 4963 Signed By: <Electronically signed by Raji Ennis MD> 01/11/22 7897 [facility] Work Phone: [phone] Progress note Author Mani Dickens [facility] January 11, 2022 5:02pm Note Date/Time January 11, 2022 8 :55am [facility] [address] [place] [address] Neurology Progress Note Signed Patient: Irineo Wallis Jr MR# : [id number] : 1940 Acct:[id number] Age/Sex: 81 / M Adm Date: 2 Loc: 3T Room: [address] [place] [address] Type: ADM IN Attending Dr: Raji Ennis [...] knee to all modalities. CEREBELLAR EXAM: * Abqwwz-dm-ycpn and alternating movements are intact and normal in bilateral upper extremities * Evgf-zu-yzqj and alternating movements are intact and normal [...] Therapy Recommendations: OT Recommendations OT Recommended Discharge Senior Living Facility Location OT Recommended Services at Physical Therapy,Occupational Therapy Discharge PT Recommendations PT Recommended Discharge Senior Living Facility Location PT Recommended Services at Physical [...] the plan of care and confirmed the DIRECTOR INPATIENT HEADACHE PROGRAM note The patient is an 81-year-old man [...] Tristan 0844 Signed By: <Electronically signed by MIE Knight> 01/11/22 1426 <Electronically signed by MD Mani Dickens> 01/11/22 1702 [facility] Work Phone: [phone] Progress note Author W Be Mcintyre [facility] January 11, 2022 2:09pm Note Date/Time January 11, 2022 2 :09pm [facility] [address] [place] [address] Cardiology Progress Note Signed Patient: Irineo Wallis Jr MR# : [id number] : 1940 Acct:[id number] Age/Sex: 81 / M Adm Date: 2 Loc: Room: [address] [place] [address] Type: ADM IN Attending Dr: Raji Ennis [...] % (Auto) 73.8 Lymph % (Auto) 13.7 [place] % (Auto) 9.6 Eos % (Auto) 2.2 Baso % (Auto) 0.7 Neut # (Auto) 6.3 Lymph # (Auto) 1.2 [place] # (Auto) 0.8 Eos # (Auto) 0.2 [...] <Electronically signed by Bhupinder Mcintyre DO> 01/11/22 8985 [facility] Work Phone: [phone]) 168-806711-06-2022 Progress note Author Dharmesh Zavala [facility] January 10, 2022 8:54pm Note Date/Time January 10, 2022 8 :54pm [facility] [address] [place] [address] Hospitalist Progress Note Signed Patient: Irineo Wallis Jr MR# : [id number] : 1940 Acct:[id number] Age/Sex: 81 / M Adm Date: 2 Loc: Room: [address] [place] [address] Type: ADM IN Attending Dr: Dharmesh Zavala DO Copies to: ~ Date of Service: 01/10/2022 Subjective Subjective Narrative: When I entered the room the patient tells me that he is getting a pain in the thighs on the top of his legs. He does mention that the people in [place] told me that was due to the [...] mg 01/09/22 14:41 Bisacodyl 10 Mg Supp.Rect AR 01/09/23 14:40 DAILY PRN Constipation Bisacodyl 10 mg 01/09/22 14:41 Bisacodyl 5 Mg Tablet.Dr PO 01/09/23 14:40 DAILY PRN Constipation Bumetanide 1 mg 01/09/22 15:30 01/10/22 14:42 Bumetanide 1 Mg/4 Ml Vial IV-PUSH 01/09/23 15:29 1 mg Q8H ANIBAL Administration Docusate Sodium 100 mg 01/09/22 21:00 01/10/22 08:58 Docusate 100 Mg Capsule PO 01/09/23 20:59 Not Given BID [facility] Fluticasone Propionate 1 spray 01/09/22 15:17 Fluticasone Propionate Wallace 120 Wallace/16 Gm Bottle NARES-BOTH 01/09/23 15:16 QHS PRN [...] <Electronically signed by Dharmesh Zavala DO> 01/10/222053 [facility] Work Phone: [phone] Consult note Author Vikas Mane [facility] January 10, 2022 12:35pm Note Date/Time January 10, 2022 9 :20am [facility] [address] [place] [address] Neurology Consult Note Signed Patient: Irineo Wallis Jr MR# : [id number] : 1940 Acct:[id number] Age/Sex: 81 / M Adm Date: 2 Loc: Room: [address] [place] [address] Type: ADM IN Attending Dr: Dharmesh Zavala DO Copies to: DO Feliciano Pollock,DO Dharmesh Zavala DO~ HPI Consult Date: 01/10/22 Hand Fur Cleaner: Vikas Mane DO [facility] Vaccinated for COVID-19?: Yes Medical History (Updated [...] Esa Cardoso M.D.01/09/2022 1:02 PM Dictation Location: [place] [address] 01/09/22 09:47 IMPRESSION: No acute intracranial findings. Impression dictated by: Esa Carodso M.D.01/09/2022 1:00 PM Dictation Location: [facility]12 Lumbar [...] Esa Cardoso M.D.01/09/2022 10:11 AM Dictation Location: [facility]03 Renal Ultrasound 01/10/22 05:00 IMPRESSION: No hydronephrosis. Impression dictated by: Esa Cardoso M.D.01/10/2022 9:07 AM Dictation Location: [facility]03 Assessment/Plan (1) Falls frequently: Assessment/Problem Details: [...] rapidly alternating movements. No limb dysmetria with fpuyre-mbez-iqwwsh testing. DATA REVIEW: MRI lumbar spine from [...] signed by Vikas Mane DO> 01/10/22 1235 [facility] Work Phone: 1(627) 493-740311-06-2022 Consult note Author Marv Drew [facility] January 10, 2022 11:32am Note Date/Time January 10, 2022 1 1:32am [facility] [address] [place] [address] Cardiology Consult Note Signed Patient: Irineo Wallis Jr MR# : [id number] : 1940 Acct:[id number] Age/Sex: 81 / M Adm Date: 2 Loc: Room: [address] [place] [address] Type: ADM IN Attending Dr: Dharmesh Zavala [...] when it was 35%. His cardiac catheterization 2017 revealed minimal coronary artery disease. He has [...] x10E3/uL Lymph # (Auto) 1.0 (1.00-4.8) x10E3/uL [place] # (Auto) 1.0 H (0.0-0.8) x10E3/uL Eos [...] Bradycardia, unspecified Documented By: Marv Drew MD, [facility] 2 1125 Signed By: <Electronically signed by [facility] Marv Drew> 01/10/22 1132 [facility] Work Phone: [phone] 144-150311-05-2022 History and physical note Author Dharmesh Zavala [facility] January 09, 2022 3:30pm Note Date/Time January 09, 2022 3 :30pm [facility] [address] [place] [address] Hospitalist H&P Signed Patient: Irineo Wallis Jr MR# : [id number] : 1940 Acct:[id number] Age/Sex: 81 / M Adm Date: 2 Loc: Room: [address] [place] [address] Type: ADM IN Attending Dr: Dharmesh Zavala [...] that he had seen a urologist in [place] recently. Patient used to be on a number of prostate medications but apparently they were stopped because they are not doing what they are supposed to be doing. The patient andhis daughter have a discussion about what urology was doing for the situation without finding a specific answer. Patient also describes that he has been veryconstipated lately and takes an unspecified tndj-rqc-qozkepn generic stool softener. His daughter does point [...] radiofrequency ablations by pain management doctor in [place]. Review of Systems Review of Systems Review [...] % (Auto) 13.5 % (.) 01/09/22 10:36 [place] % (Auto) 14.2 % (.) 01/09/22 10:36 Eos % (Auto) 0.1 % (.) 01/09/22 10:36 Baso % (Auto) 1.0 % (.) 01/09/22 10:36 Neut # (Auto) 4.3 x10E3/uL (1.8-7.7) 01/09/22 10:36 Lymph # (Auto) 0.8 x10E3/uL (1.00-4.8) L 01/09/22 10:36 [place] # (Auto) 0.9 x10E3/uL (0.0-0.8) H 01/09/22 [...] pH 5.5 (5.0-9.0) 01/09/22 12:42 Ur Specific [place] 1.018 (1.001-1.030) 01/09/22 12:42 Urine Protein Trace [...] lumbar spine. Documented By: Dharmesh Zavala DO 1511 Signed By: <Electronically signed by Dharmesh Zavala DO> 01/09/22 1275 [facility] Work Phone: [phone] 147-614011-03-2022 Evaluation note* Encounter Date Diagnosis Assessment Notes [...] in a week to re-evaluate the area. [facility] Other 10-21-2022 Evaluation note* Encounter Date Diagnosis Assessment Notes Treatment Notes Treatment Clinical Notes Dec, Lower extremity edema (ICD-10 - R60.0) [facility] Other 10-13-2022 NoteCONSULTATION CONSULTATION DATE: 12/17/2021 HISTORY [...] next refill, we will change it to [place] 5/325 daily p.r.n. and the patient is encouraged to increase oral fluids and to continue with his stool softener on a daily basis. Heat education was discussed with the patient, as far as frequency and consistency. We will see him in three months' time, unless otherwise indicated, and all questions answered today.[id number] NoteCONSULTATION CONSULTATION DATE: 11/12/2021 HISTORY OF PRESENT [...] followed up in the office post procedure.[id number] Evaluation note* Encounter Date Diagnosis Assessment Notes [...] manage his swelling better. He voiced understanding. [facility] Other 07-25-2022 Evaluation note* Encounter Date Diagnosis Assessment Notes Treatment Notes Treatment Clinical Notes Sep, CHF (congestive heart failure) (ICD-10 - I50.9) [facility] Other 07-08-2022 Evaluation note* Encounter Date Diagnosis Assessment Notes Treatment Notes Treatment Clinical Notes Sep, CHF (congestive heart failure) (ICD-10 - I50.9) Patient is to hold bumex until re-evaluated in one month per Dr. Feliciano Ga. [facility] Other 07-07-2022 Evaluation note* Encounter Date Diagnosis Assessment Notes Treatment Notes Treatment Clinical Notes Sep, Atrial fibrillation (ICD-10 - I48.91) [facility] Other 07-01-2022 Evaluation note* Encounter Date Diagnosis Assessment Notes Treatment Notes Treatment Clinical Notes Sep, Insomnia (ICD-10 - G47.00) Sep, Gout (ICD-10 - M10.9) [facility] Other 06-27-2022 Evaluation note* Encounter Date Diagnosis [...] is in AF today. He did see sharepoint analyst a few weeks ago and is stable [...] continue with current medications at this time. [facility]avin Other 06-09-2022 NoteCONSULTATION CONSULTATION DATE: 08/13/2021 This [...] in three months' time unless otherwise indicated. [facility] Signed and Approved by: MONSERRAT RODARTE . 08/20/2021 16:02:00[facility]03-21-2022 Evaluation note* Encounter Date Diagnosis Assessment Notes Treatment Notes Treatment Clinical Notes May, Insomnia (ICD-10 - G47.00) Mavin Other 01-05-2022 Evaluation note* Encounter Date Diagnosis Assessment Notes Treatment Notes Treatment Clinical Notes Mar, Atrial fibrillation (ICD-10 - I48.91) [facility] Other 12-30-2021 Evaluation note* Encounter Date Diagnosis Assessment Notes Treatment Notes Treatment Clinical Notes Feb, Insomnia (ICD-10 - G47.00) [facility] Other 11-15-2021 Evaluation note* Encounter Date Diagnosis [...] Screening for prostate cancer (ICD-10 - Z12.5) [facility] Other 03-19-2007 History general Narrative - Reported* Type Description Date Medical History EKG 05-23-2006 Medical History MRI Lumbar Spine 01-13-11; [facility] Medical History 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 Medical History 01/22/14-stress test and echocar diogram at [facility] Medical History follows with urology Medical History 05/11/16 Stress Test Medical History f/u with Dr Mcintyre for CHF, A-F ib Medical History Dr Brambila pain mgmt- back spondyl olysis Medical History MUGA Stress test 06/14/16 [facility] Medical History 05/10/2018 Colonscop y due to [...] Surgical History Bilateral Cataract 2017 Surgical History DUANE Lezama 11/05/19 Hospitalization History [facility], A-Fib 04/2016 Mavin Other [id number] History general Narrative - Reported* Type Description Date Medical History EKG 05-23-2006 Medical History MRI Lumbar Spine 01-13-11; [facility] Medical History 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 Medical History 01/22/14-stress test and echocar diogram at [facility] Medical History follows with urology Medical History 05/11/16 Stress Test Medical History f/u with Dr Mcintyre for CHF, A-F ib Medical History Dr Brambila pain mgmt- back spondyl olysis Medical History MUGA Stress test 06/14/16 [facility] Medical History 05/10/2018 Colonscop y due to [...] Surgical History Bilateral Cataract 2017 Surgical History DUANE Lezama 11/05/19 Hospitalization History [facility]- [place], A-Fib 04/2016 [facility] [employer] Other Consult note Author Vikas Mane [facility] January 10, 2022 12:35pm Note Date/Time January 10, 2022 9 :20am [facility] [address] [place] [address] Neurology Consult Note Signed Patient: Irineo Wallis Jr MR# : [id number] : 1940 Acct:[id number] Age/Sex: 81 / M Adm Date: 2 Loc: Room: [address] [place] [address] Type: ADM IN Attending Dr: Dharmesh Zavala DO Copies to: DO Feliciano Pollock,DO Dharmesh Zavala DO~ HPI Consult Date: 01/10/22 Hand Fur Cleaner: Vikas Mane DO [facility] Vaccinated for COVID-19?: Yes Medical History (Updated [...] Esa Cardoso M.D.01/09/2022 1:06 PM Dictation Location: [facility]-[employer]-12 Chest X-Ray 01/09/22 09:48 IMPRESSION: Developing groundglass parenchymal densities greater on the RIGHT. Consider pulmonary edema. Impression dictated by: Esa Cardoso M.D.01/09/2022 10:11 AM Dictation Location: [place] [address] Renal Ultrasound 01/10/22 05:00 IMPRESSION: No hydronephrosis. Impression dictated by: Esa Cardoso M.D.01/10/2022 9:07 AM Dictation Location: [place] [address] Assessment/Plan (1) Falls frequently: Assessment/Problem Details: HPI: [...] rapidly alternating movements. No limb dysmetria with axeqgq-yyzm-senmtq testing. DATA REVIEW: MRI lumbar spine from [...] signed by Vikas Mane DO> 01/10/22 1235 [facility] Work Phone: Consult note Author Marv Drew [facility] January 10, 2022 11:32am Note Date/Time January 10, 2022 1 1:32am [facility] [address] [place] [address] Cardiology Consult Note Signed Patient: Irineo Wallis Jr MR# : [id number] : 1940 Acct:[id number] Age/Sex: 81 / M Adm Date: 2 Loc: Room: [address] [place] [address] Type: ADM IN Attending Dr: Dharmesh Zavala [...] x10E3/uL Lymph # (Auto) 1.0 (1.00-4.8) x10E3/uL [place] # (Auto) 1.0 H (0.0-0.8) x10E3/uL Eos [...] Bradycardia, unspecified Documented By: Marv Drew MD, [facility] 2 1125 Signed By: <Electronically signed by [facility] Marv Drew> 01/10/22 1132 [facility] Work Phone: Consult note Author Victor Manuel Reynolds [facility] January 13, 2022 10:45am Note Date/Time January 13, 2022 1 0:45am [facility] [address] [place] [address] Infect. Disease Consult Note Signed Patient: Irineo Wallis Jr MR# : [id number] : 1940 Acct:[id number] Age/Sex: 81 / M Adm Date: 2 Loc: Room: [address] [place] [address] Type: ADM IN Attending Dr: Raji Ennis [...] negative unless noted below or in HPI [facility] Attestation Statement: The following information was [...] Bisacodyl (Bisacodyl 10 Mg Supp.Rect) 10 mg AR DAILY PRN PRN Reason: Constipation Stop: 01/09/23 [...] Dose: 100 mg Fluticasone Propionate (Fluticasone Propionate Wallace 120 Wallace/16 Gm Bottle) 1 spray NARES-BOTH QHS PRN PRN Reason: Nasal Congestion Stop: 01/09/23 15:16 Magnesium Sulfate (Magnesium Sulf 2gm-*Swfi*) 2 gm in 50 mls @ 25 mls/hr IV DAILY PRN PRN Reason: Magnesium Level < 1.5 Stop: 01/09/23 14:40 Cefepime HCl (Maxipime) 2 gm in 50 mls @ 100 mls/hr IV Q12H [facility] Last Admin: 01/13/22 03:07 Dose: 100 mls/hr Levothyroxine Sodium (Levothyroxine 150 Mcg Tablet) 150 mcg PO DAILY@0630 [facility] Stop: 01/10/23 06:29 Last Admin: 01/13/22 06:26 Dose: 150 mcg Magnesium Hydroxide (Magnesium Hydroxide Susp 30 Ml Udc) 30 ml PO BID PRN PRN Reason: Constipation Stop: 01/09/23 14:40 Magnesium Oxide (Magnesium Oxide 400 Mg Tablet) 400 mg PO DAILY [facility] Stop: 01/10/23 08:59 Last Admin: 01/13/22 09:43 Dose: 400 mg Nitroglycerin (Nitroglycerin 0.4 Mg Tab.Subl) 0.4 mg SUBLINGUAL Q5MIN.X3 PRN PRN Reason: Chest Pain Stop: 01/09/23 14:40 Pom Eszopiclone 3 Mg (Tablet) 3 mg PO HS [facility] Stop: 01/11/23 21:59 Last Admin: 01/12/22 22:51 Dose: 3 mg Nystatin (Nystatin 100,000 Unit/Gram Powder 15 Gm Bottle) 1 applic TOPICAL TID [facility] Stop: 01/09/23 21:59 Last Admin: 01/13/22 09:43 [...] by MD Victor Manuel Reynolds> 01/13/22 1045 [facility] Work Phone: Evaluation noteNo assessment information available [facility] Work Phone: Evaluation noteNo InformationNort [employer] Other Evaluation note* Diagnosis Onset Date Resolution Status Acute decompensated heart failure acute Acute exacerbation of chronic low back pain acute Elevated troponin acute Fall acute Hypoxemia acute [facility] Work Phone: Evaluation note* Diagnosis Onset Date Resolution Status Acute decompensated heart failure acute Acute exacerbation of chronic low back pain acute [id number] acute Acute respiratory failure with hypoxia acute [...] apnea acute Atrial fibrillation chronic Hypertension chronic [facility] Work Phone: History and physical note Author Dharmesh Zavala [facility] January 09, 2022 3:30pm Note Date/Time January 09, 2022 3 :30pm [facility] [address] [place] [address] Hospitalist H&P Signed Patient: Irineo Wallis Jr MR# : [id number] : 1940 Acct:[id number] Age/Sex: 81 / M Adm Date: 2 Loc: Room: [address] [place] [address] Type: ADM IN Attending Dr: Dharmesh Zavala [...] that he had seen a urologist in [place] recently. Patient used to be on a number of prostate medications but apparently they were stopped because they are not doing what they are supposed to be doing. The patient andhis daughter have a discussion about what urology was doing for the situation without finding a specific answer. Patient also describes that he has been veryconstipated lately and takes an unspecified dhit-zif-uanbuus generic stool softener. His daughter does point [...] radiofrequency ablations by pain management doctor in [place]. Review of Systems Review of Systems Review [...] % (Auto) 13.5 % (.) 01/09/22 10:36 [place] % (Auto) 14.2 % (.) 01/09/22 10:36 Eos % (Auto) 0.1 % (.) 01/09/22 10:36 Baso % (Auto) 1.0 % (.) 01/09/22 10:36 Neut # (Auto) 4.3 x10E3/uL (1.8-7.7) 01/09/22 10:36 Lymph # (Auto) 0.8 x10E3/uL (1.00-4.8) L 01/09/22 10:36 [place] # (Auto) 0.9 x10E3/uL (0.0-0.8) H 01/09/22 [...] pH 5.5 (5.0-9.0) 01/09/22 12:42 Ur Specific [place] 1.018 (1.001-1.030) 01/09/22 12:42 Urine Protein Trace [...] signed by Dharmesh Zavala DO> 01/09/22 1530 [facility] Work Phone: History of Present illness Narrative* The patient states he has been generally stable since the last visit. Comorbid Illnesses: hypertension. * Symptoms: denies chest pain at rest, denies exertional chest pain, denies dyspnea, denies fatigue, stable exercise intolerance, denies palpitations, denies edema, denies orthopnea, denies dizziness and denies orthostatic dizziness. * Disease Monitoring: [facility] [employer] DO Work Phone: History of Present illness Narrative* The patient states he has been generally stable since the last visit. Comorbid Illnesses: hypertension. * Symptoms: denies chest pain at rest, denies exertional chest pain, denies dyspnea, denies fatigue, stable exercise intolerance, denies palpitations, denies edema, denies orthopnea, denies dizziness and denies orthostatic dizziness. * Disease Monitoring: [facility] [employer] 250 DO Work Phone: History of Present [...] is not doing well with his goals. -[facility] 250 DO Work Phone: History of Present [...] is not doing well with his goals. -[facility] 600 DO Work Phone: Hospital Discharge instructions Additional Instructions Senior Living Facility to manage care: - Full code [...] unable to void, chou catheter removed on 01/16[facility] Work Phone: Progress note Author Dharmesh Zavala [facility] January 10, 2022 8:54pm Note Date/Time January 10, 2022 8 :54pm [facility] [address] [place], [place] [id number] Hospitalist Progress Note Signed Patient: Irineo Wallis Jr MR# : [id number] : 1940 Acct:[id number] Age/Sex: 81 / M Adm Date: 2 Loc: 3T Room: 6F6274-3 Type: ADM IN Attending Dr: Dharmesh Zavala DO Copies to: ~ Date of Service: 01/10/2022 Subjective Subjective Narrative: When I entered the room the patient tells me that he is getting a pain in the thighs on the top of his legs. He does mention that the people in [place] told me that was due to the [...] mg 01/09/22 14:41 Bisacodyl 10 Mg Supp.Rect AR 01/09/23 14:40 DAILY PRN Constipation Bisacodyl 10 [...] Propionate 1 spray 01/09/22 15:17 Fluticasone Propionate Wallace 120 Wallace/16 Gm Bottle NARES-BOTH 01/09/23 15:16 QHS PRN [...] mg 01/09/22 22:00 Eszopiclone PO 01/09/23 21:59 [facility] Nystatin 1 applic 01/09/22 22:00 01/10/22 14:42 [...] <Electronically signed by Dharmesh Zavala DO> 01/10/222053 [facility] Work Phone: Progress note Author Mani Dickens [facility] January 11, 2022 5:02pm Note Date/Time January 11, 2022 8 :55am [facility] [address] [place] [address] Neurology Progress Note Signed Patient: Irineo Wallis Jr MR# : [id number] : 1940 Acct:[id number] Age/Sex: 81 / M Adm Date: 2 Loc: 3T Room: [address] [place] [address] Type: ADM IN Attending Dr: Raji Ennis [...] knee to all modalities. CEREBELLAR EXAM: * Itszon-ul-djrs and alternating movements are intact and normal in bilateral upper extremities * Yblg-gj-tumc and alternating movements are intact and normal [...] Therapy Recommendations: OT Recommendations OT Recommended Discharge Senior Living Facility Location OT Recommended Services at Physical Therapy,Occupational Therapy Discharge PT Recommendations PT Recommended Discharge Senior Living Facility Location PT Recommended Services at Physical [...] the plan of care and confirmed the DIRECTOR INPATIENT HEADACHE PROGRAM note The patient is an 81-year-old man [...] <Electronically signed by MD Mani Dickens> 01/11/22 1707 [facility] Work Phone: Progress note Author W Be Francisco Javier [facility] January 11, 2022 2:09pm Note Date/Time January 11, 2022 2 :09pm [facility] [address] [place] [address] Cardiology Progress Note Signed Patient: Irineo Wallis Jr MR# : [id number] : 1940 Acct:[id number] Age/Sex: 81 / M Adm Date: 2 Loc: Room: [address] [place] [address] Type: ADM IN Attending Dr: Raji Ennis [...] % (Auto) 73.8 Lymph % (Auto) 13.7 [place] % (Auto) 9.6 Eos % (Auto) 2.2 Baso % (Auto) 0.7 Neut # (Auto) 6.3 Lymph # (Auto) 1.2 [place] # (Auto) 0.8 Eos # (Auto) 0.2 [...] signed by Bhupinder Mcintyre DO> 01/11/22 1409 [facility] Work Phone: Progress note Author Raji Ennis [facility] January 11, 2022 5:04pm Note Date/Time January 11, 2022 5 :04pm [facility] [address] [place] [address] Hospitalist Progress Note Signed Patient: Irineo Wallis Jr MR# : [id number] : 1940 Acct:[id number] Age/Sex: 81 / M Adm Date: 2 Loc: Room: [address] [place] [address] Type: ADM IN Attending Dr: Raji Ennis [...] mg 01/09/22 14:41 Bisacodyl 10 Mg Supp.Rect AR 01/09/23 14:40 DAILY PRN Constipation Bisacodyl 10 [...] Propionate 1 spray 01/09/22 15:17 Fluticasone Propionate Wallace 120 Wallace/16 Gm Bottle NARES-BOTH 01/09/23 15:16 QHS PRN [...] prophylaxis Documented By: Raji Ennis MD 01/11/22 3731 Signed By: <Electronically signed by Raji Ennis MD> 01/11/22 4119 [facility] Work Phone: Progress note Author Mani Dickens [facility] January 12, 2022 4:10pm Note Date/Time January 12, 2022 8 :19am [facility] [address] [place] [address] Neurology Progress Note Signed Patient: Irineo Wallis Jr MR# : [id number] : 1940 Acct:[id number] Age/Sex: 81 / M Adm Date: 2 Loc: Room: [address] [place] [address] Type: ADM IN Attending Dr: Raji Ennis [...] extremities * Unable to test finger-nose or bygo-iv-cihg due to drowsiness REFLEX EXAM: * 1/4 [...] Therapy Recommendations: OT Recommendations OT Recommended Discharge Senior Living Facility Location OT Recommended Services at Physical Therapy,Occupational Therapy Discharge PT Recommendations PT Recommended Discharge Senior Living Facility Location PT Recommended Services at Physical [...] the plan of care and confirmed the DIRECTOR INPATIENT HEADACHE PROGRAM note The patient is an 81-year-old man [...] signed by MD Mani Dickens> 01/12/22 1610 [facility] Work Phone: Progress note [facility] January 12, 2022 4:38pm Note Date/Time January 12, 2022 4 :38pm [facility] [address] [place] [address] Hospitalist Progress Note Signed Patient: Irineo Wallis Jr MR# : [id number] : 1940 Acct:[id number] Age/Sex: 81 / M Adm Date: 2 Loc: 3T Room: [address] [place] [address] Type: ADM IN Attending Dr: Raji Ennis [...] mg 01/09/22 14:41 Bisacodyl 10 Mg Supp.Rect AR 01/09/23 14:40 DAILY PRN Constipation Bisacodyl 10 [...] Propionate 1 spray 01/09/22 15:17 Fluticasone Propionate Wallace 120 Wallace/16 Gm Bottle NARES-BOTH 01/09/23 15:16 QHS PRN [...] Tablet PO 01/11/23 21:59 3 mg HS NAIBAL Administration Nystatin 1 applic 01/09/22 22:00 01/12/22 [...] <Electronically signed by Raji Ennis MD> 01/12/22 1828 [facility] Work Phone: Progress note Author W Be Mcintyre [facility] January 12, 2022 6:11pm Note Date/Time January 12, 2022 6 :11pm [facility] [address] [place] [address] Cardiology Progress Note Signed Patient: Irineo Wallis Jr MR# : [id number] : 1940 Acct:[id number] Age/Sex: 81 / M Adm Date: 2 Loc: Room: [address] [place] [address] Type: ADM IN Attending Dr: Raji Ennis [...] % (Auto) 76.3 Lymph % (Auto) 12.2 [place] % (Auto) 9.1 Eos % (Auto) 1.9 Baso % (Auto) 0.5 Neut # (Auto) 7.7 Lymph # (Auto) 1.2 [place] # (Auto) 0.9 H Eos # (Auto) [...] 2.9 Globulin (PEP) 2.4 Albumin/Globulin (PEP) 1.2 Ndkif-3-Yghdrwwrb 0.4 Bsamw-4-Krbkqcsjs 0.7 Beta Globulins 0.6 L Gamma Globulins 0.8 M-Franky Not observed PEP Note IgG 816 IgA 171 IgM 105 Serum Immunofixation 01/12/22 06:42 Corrected WBC Uncorrected WBC Count RBC Hgb Hct MCV MCH MCHC RDW Plt Count MPV Neut % (Auto) Lymph % (Auto) [place] % (Auto) Eos % (Auto) Baso % (Auto) Neut # (Auto) Lymph # (Auto) [place] # (Auto) Eos # (Auto) Baso # (Auto) Nucleated RBC % (auto) PHA Creatinine Clear Sodium Potassium Chloride Carbon Dioxide Anion Gap BUN Creatinine Est GFR ( Amer) Est GFR (Non-Af Amer) Glucose Calcium C-Reactive Prot, Quant 8.4 H Serum Total Protein Albumin (Send Out) Globulin (PEP) Albumin/Globulin (PEP) Brntp-3-Hzaxmpdgp Xjvix-9-Kltmkqufz Beta Globulins Gamma Globulins M-Franky PEP Note [...] <Electronically signed by Bhupinder Mcintyre DO> 01/12/22 0110 [facility] Work Phone: Progress note Author Mani Dickens [facility] January 13, 2022 6:10pm Note Date/Time January 13, 2022 8 :13am [facility] [address] [place] [address] Neurology Progress Note Signed with Gilbert Patient: Irineo Wallis Jr MR# : [id number] : 1940 Acct:[id number] Age/Sex: 81 / M Adm Date: 2 Loc: Room: [address] [place] [address] Type: ADM IN Attending Dr: Raji Ennis [...] extremities * Unable to test finger-nose or ctqf-df-mvgd due to drowsiness REFLEX EXAM: * 1/ [...] Therapy Recommendations: OT Recommendations OT Recommended Discharge Senior Living Facility Location OT Recommended Services at Physical Therapy,Occupational Therapy Discharge PT Recommendations PT Recommended Discharge Senior Living Facility Location PT Recommended Services at Physical [...] <Electronically signed by MEI Knight> 01/13/22 1520 [facility] Work Phone: Progress note Author Raji Ennis [facility] January 13, 2022 3:44pm Note Date/Time January 13, 2022 3 :27pm [facility] [address] [place] [address] Hospitalist Progress Note Signed Patient: Irineo Wallis Jr MR# : [id number] : 1940 Acct:[id number] Age/Sex: 81 / M Adm Date: 2 Loc: Room: [address] [place] [address] Type: ADM IN Attending Dr: Raji Ennis [...] mg 01/09/22 14:41 Bisacodyl 10 Mg Supp.Rect AR 01/09/23 14:40 DAILY PRN Constipation Bisacodyl 10 mg 01/09/22 14:41 01/12/22 08:22 Bisacodyl 5 Mg Tablet.Dr PO 01/09/23 14:40 10 mg DAILY PRN Administration Constipation Bumetanide 1 mg 01/13/22 16:00 Bumetanide 1 Mg Tablet PO 01/13/23 15:59 BID@0800,1600 [facility] Docusate Sodium 100 mg 01/09/22 21:00 01/13/22 09:43 Docusate 100 Mg Capsule PO 01/09/23 20:59 100 mg BID ANIBAL Administration Fluticasone Propionate 1 spray 01/09/22 15:17 Fluticasone Propionate Wallace 120 Wallace/16 Gm Bottle NARES-BOTH 01/09/23 15:16 QHS PRN [...] signed by Raji Ennis MD> 01/13/22 1544 [facility] Work Phone: Progress note Author Victor Manuel Reynolds [facility] January 14, 2022 9:39am Note Date/Time January 14, 2022 9:39am [facility] [address] [place] [address] Infect. Disease Progress Note Signed Patient: Irineo Wallis Jr MR# : [id number] : 1940 Acct:[id number] Age/Sex: 81 / M Adm Date: 2 Loc: Room: [address] [place] [address] Type: ADM IN Attending Dr: Raji Ennis [...] Appearance Clear Urine pH 5.5 Ur Specific Creola 1.012 Urine Protein 30 H Urine Glucose [...] 300 Mg Tablet) 300 mg PO DAILY [facility] Stop: 01/10/23 08:59 Last Admin: 01/14/22 08:04 Dose: 300 mg Apixaban (Apixaban 5 Mg Tablet) 5 mg PO BID [facility] Stop: 01/09/23 20:59 Last Admin: 01/14/22 08:04 Dose: 5 mg Atorvastatin Calcium (Atorvastatin 40 Mg Tablet) 40 mg PO QHS [facility] Stop: 01/09/23 21:59 Last Admin: 01/13/22 21:26 Dose: 40 mg Bisacodyl (Bisacodyl 10 Mg Supp.Rect) 10 mg AR DAILY PRN PRN Reason: Constipation Stop: 01/09/23 14:40 Bisacodyl (Bisacodyl 5 Mg Tablet.Dr) 10 mg PO DAILY PRN PRN Reason: Constipation Stop: 01/09/23 14:40 Last Admin: 01/13/22 21:26 Dose: 10 mg Bumetanide (Bumetanide 1 Mg Tablet) 1 mg PO BID@0800,1600 [facility] Stop: 01/13/23 15:59 Docusate Sodium (Docusate 100 Mg Capsule) 100 mg PO BID [facility] Stop: 01/09/23 20:59 Last Admin: 01/14/22 08:03 Dose: 100 mg Fluticasone Propionate (Fluticasone Propionate Wallace 120 Wallace/16 Gm Bottle) 1 spray NARES-BOTH QHS PRN PRN Reason: Nasal Congestion Stop: 01/09/23 15:16 Magnesium Sulfate (Magnesium Sulf 2gm-*Swfi*) 2 gm in 50 mls @ 25 mls/hr IV DAILY PRN PRN Reason: Magnesium Level < 1.5 Stop: 01/09/23 14:40 Cefepime HCl (Maxipime) 2 gm in 50 mls @ 100 mls/hr IV Q12H [facility] Last Admin: 01/14/22 03:05 Dose: 100 mls/hr Vancomycin HCl 1.25 gm/ (Dextrose) 275 mls @ 183.333 mls/hr IV Q24H [facility] Stop: 01/13/23 18:59 Last Infusion: 01/13/22 21:17 Dose: Infused Levothyroxine Sodium (Levothyroxine 150 Mcg Tablet) 150 mcg PO DAILY@0630 [facility] Stop: 01/10/23 06:29 Last Admin: 01/14/22 05:54 Dose: 150 mcg Magnesium Hydroxide (Magnesium Hydroxide Susp 30 Ml Udc) 30 ml PO BID PRN PRN Reason: Constipation Stop: 01/09/23 14:40 Magnesium Oxide (Magnesium Oxide 400 Mg Tablet) 400 mg PO DAILY [facility] Stop: 01/10/23 08:59 Last Admin: 01/14/22 08:04 Dose: 400 mg Nitroglycerin (Nitroglycerin 0.4 Mg Tab.Subl) 0.4 mg SUBLINGUAL Q5MIN.X3 PRN PRN Reason: Chest Pain Stop: 01/09/23 14:40 Pom Eszopiclone 3 Mg (Tablet) 3 mg PO HS [facility] Stop: 01/11/23 21:59 Last Admin: 01/13/22 21:27 Dose: 3 mg Nystatin (Nystatin 100,000 Unit/Gram Powder 15 Gm Bottle) 1 applic TOPICAL TID [facility] Stop: 01/09/23 21:59 Last Admin: 01/14/22 08:04 [...] signed by MD Victor Manuel Reynolds> 01/14/22938 [facility] Work Phone: Progress note Author Raji [facility] January 14, 2022 5:43pm Note Date/Time January 14, 2022 5:43pm [facility] [address] [place] [address] Hospitalist Progress Note Signed Patient: Irineo Wallis MR# : [id number] : 1940 Acct:[id number] Age/Sex: 81 / M Adm Date: 2 Loc: 3T Room: [address] [place] [address] Type: ADM IN Attending Dr: Raji Ennis [...] mg 01/09/22 14:41 Bisacodyl 10 Mg Supp.Rect AR 01/09/23 14:40 DAILY PRN Constipation Bisacodyl 10 [...] Propionate 1 spray 01/09/22 15:17 Fluticasone Propionate Wallace 120 Wallace/16 Gm Bottle NARES-BOTH 01/09/23 15:16 QHS PRN [...] <Electronically signed by Raji Ennis MD> 01/14/22 065 [facility] Work Phone: Progress note Author Victor Manuel Reynolds [facility] January 15, 2022 12:21pm Note Date/Time January 15, 2022 12:21pm [facility] [address] [place] [address] Infect. Disease Progress Note Signed Patient: Irineo Wallis Jr MR# : [id number] : 1940 Acct:[id number] Age/Sex: 81 / M Adm Date: 2 Loc: Room: [address] [place] [address] Type: ADM IN Attending Dr: Raji Ennis [...] 300 Mg Tablet) 300 mg PO DAILY [facility] Stop: 01/10/23 08:59 Last Admin: 01/15/22 08:46 Dose: 300 mg Apixaban (Apixaban 5 Mg Tablet) 5 mg PO BID ANIBAL Stop: 01/09/23 20:59 Last Admin: 01/15/22 08:46 Dose: 5 mg Atorvastatin Calcium (Atorvastatin 40 Mg Tablet) 40 mg PO QHS [facility] Stop: 01/09/23 21:59 Last Admin: 01/14/22 21:32 Dose: 40 mg Bisacodyl (Bisacodyl 10 Mg Supp.Rect) 10 mg AR DAILY PRN PRN Reason: Constipation Stop: 01/09/23 14:40 Bisacodyl (Bisacodyl 5 Mg Tablet.Dr) 10 mg PO DAILY PRN PRN Reason: Constipation Stop: 01/09/23 14:40 Last Admin: 01/14/22 19:57 Dose: 10 mg Bumetanide (Bumetanide 1 Mg Tablet) 1 mg PO DAILY@0800 [facility] Stop: 01/14/23 15:59 Last Admin: 01/15/22 08:46 Dose: 1 mg Docusate Sodium (Docusate 100 Mg Capsule) 100 mg PO BID [facility] Stop: 01/09/23 20:59 Last Admin: 01/15/22 08:46 Dose: 100 mg Fluticasone Propionate (Fluticasone Propionate Wallace 120 Wallace/16 Gm Bottle) 1 spray NARES-BOTH QHS PRN PRN Reason: Nasal Congestion Stop: 01/09/23 15:16 Magnesium Sulfate (Magnesium Sulf 2gm-*Swfi*) 2 gm in 50 mls @ 25 mls/hr IV DAILY PRN PRN Reason: Magnesium Level < 1.5 Stop: 01/09/23 14:40 Levothyroxine Sodium (Levothyroxine 150 Mcg Tablet) 150 mcg PO DAILY@0630 [facility] Stop: 01/10/23 06:29 Last Admin: 01/15/22 06:38 Dose: Not Given Magnesium Hydroxide (Magnesium Hydroxide Susp 30 Ml Udc) 30 ml PO BID PRN PRN Reason: Constipation Stop: 01/09/23 14:40 Magnesium Oxide (Magnesium Oxide 400 Mg Tablet) 400 mg PO DAILY [facility] Stop: 01/10/23 08:59 Last Admin: 01/15/22 08:46 Dose: 400 mg Nitroglycerin (Nitroglycerin 0.4 Mg Tab.Subl) 0.4 mg SUBLINGUAL Q5MIN.X3 PRN PRN Reason: Chest Pain Stop: 01/09/23 14:40 Pom Eszopiclone 3 Mg (Tablet) 3 mg PO HS [facility] Stop: 01/11/23 21:59 Last Admin: 01/14/22 21:32 Dose: 3 mg Nystatin (Nystatin 100,000 Unit/Gram Powder 15 Gm Bottle) 1 applic TOPICAL TID [facility] Stop: 01/09/23 21:59 Last Admin: 01/15/22 08:46 [...] QPM ANIBAL Stop: 01/09/23 20:59 Last Admin: 01/14/22 21:32 [...] signed by MD Victor Manuel Reynolds> 01/15/221 [facility] Work Phone: Progress note Author Raji Ennis [facility] January 15, 2022 4:51pm Note Date/Time January 15, 2022 4:51pm [facility] [address] [place] [address] Hospitalist Progress Note Signed Patient: Irineo Wallis Jr MR# : [id number] : 1940 Acct:[id number] Age/Sex: 81 / M Adm Date: 2 Loc: Room: [address] [place] [address] Type: ADM IN Attending Dr: Raji Ennis [...] mg 01/09/22 14:41 Bisacodyl 10 Mg Supp.Rect AR 01/09/23 14:40 DAILY PRN Constipation Bisacodyl 10 mg 01/09/22 14:41 01/15/22 14:16 Bisacodyl 5 Mg Tablet.Dr PO 01/09/23 14:40 10 mg DAILY PRN Administration Constipation Bumetanide 1 mg 01/14/22 16:00 01/15/22 08:46 Bumetanide 1 Mg Tablet PO 01/14/23 15:59 1 mg DAILY@0800 [facility] Administration Docusate Sodium 100 mg 01/09/22 21:00 01/15/22 08:46 Docusate 100 Mg Capsule PO 01/09/23 20:59 100 mg BID ANIBAL Administration Fluticasone Propionate 1 spray 01/09/22 15:17 Fluticasone Propionate Wallace 120 Wallace/16 Gm Bottle NARES-BOTH 01/09/23 15:16 QHS PRN [...] signed by Raji Ennis MD> 01/15/22 1651 [facility] Work Phone: Summary Purpose Family [...] same as last office f/u. * IRINEO PADDYDENIS is being seen for a 6 month [...] 'seem to be doing fine' * IRINEO NESBITTAYLEENDENIS is being seen for follow-up of a hospitalization for dizziness. * Hospital f/u: 'seem to be doing fine' * IRINEO NESBITTAYLEENDENIS is being seen for follow-up of a hospitalization for dizziness. * Patient presents to the office ambulatory with wheeled walker and steady gait. Last evaluated in clinic Dr. Mcintyre July 2021. 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 He denies any palpitations or fast heartbeats. [...] Complaint and Reason for Visit [facility] Chief Complaint E03.9 I10 I48.91 fall Reason for Visit Acute decompensated heart failure Acute exacerbation of chronic low back pain Elevated troponin Fall Hypoxemia Chief Complaint E03.9 I10 I48.91 fall Reason for Visit Acute decompensated heart failure Acute exacerbation of chronic low back pain [id number] Acute respiratory failure with hypoxia Altered mental [...] Acute exacerbation of chronic low back pain [id number] Acute respiratory failure with hypoxia Altered mental [...] Acute exacerbation of chronic low back pain [id number] Acute respiratory failure with hypoxia Altered mental [...] section and content) DATE CREATED AUTHOR 08/30/2017 [facility] DATE CREATED AUTHOR AUTHOR'S ORGANIZ ATION 07/09/2022 [facility] DATE CREATED AUTHOR AUTHOR'S ORGANIZ ATION 07/09/2022 [employer] DATE CREATED AUTHOR AUTHOR'S ORGANIZ ATION 07/16/2022 [facility] DATE CREATED AUTHOR AUTHOR'S ORGANIZ ATION 09/17/2022 [facility] DATE CREATED AUTHOR AUTHOR'S ORGANIZ ATION 05/11/2023 [facility] REASON FOR VISIT (unrecogniz ed [...] Status: Inactive Member Role Status Dates Feliciano Spencers , DO Primary Care Provider, Attending Provi percy Active Team Status: Inactive Member Role Status Dates Feliciano Spencers , DO Primary Care Provider Active Monserrat Rodarte DIRECTOR INPATIENT HEADACHE PROGRAM-C Attending Provider Active Team Status: Active Member Role Status Dates Feliciano Ga , DO Primary Care Provider Active Victor Manuel Paiz MD Emergency Provider Active Dharmesh Zavala , DO Admit Provider, Attending Pr ovider Active Team Status: Inactive Member Role Status Dates Felciiano Ga , DO Primary Care Provider Active [...] Primary Care Provider Active Enedelia Gomez , HEALTH PROMOTION EDUCATOR Attending Provider Active Team Status: Active Member Role Status Dates Feliciano Spencers , DO Primary Care Provider Active Feliciano Spencers , DO CHC Attending Provider Active Team Status: Inactive Member Role Status Dates Feliciano Ga , DO Primary Care Provider Active Felicianoamadou Spencers , DO CHC Attending Provider Active [...] BE BASED ON THE PRIMARY CLINICAL RECORDS. [facility] [employer] [facility]. provides no warranty or guarantee of the accuracy or completeness of information in this document.
--- NOTE | 2023-05-18 09:12 | P.CN_ITS ---
Consult Note: HPI Data of Consult Patient: known to practice within the last 3 years Requesting Physician: Silvia Kimble NP Primary Care Provider: Non-Staff Physician, MD Consult Narrative Reason for consult: f/u Narrative: Irineo Mendes a pleasant 82 year old male presents for evaluation and management of chronic low back pain. Pain today 2/10 in low back, dull heavy ache. Patient reporting greater than 50% pain relief from bilateral L4-5 L5-S1 facet medial branch thermal RFA. Noticing significant improvement in ability to stand longer and bend to tie shoes. KEENAN cc:: CC: Silvia Kimble NP Review of Systems ROS Status of ROS 10 or more systems reviewed and unremark able except as noted in history and below Musculoskeletal Reports: back pain PFSH PFSH Medical History CHF (congestive heart failure) ?I50.9 - Heart failure, unspecified (ICD-10) Cataracts, bilateral ?H26.9 - Unspecified cataract (ICD-10) Low back pain ?M54.50 - Low back pain, unspecified (ICD-10) Hypothyroid ?E03.9 - Hypothyroidism, unspecified (ICD-10) Hypercholesterolemia ?E78.00 - Pure hypercholesterolemia, unspecified (ICD-10) Afib ?I48.91 - Unspecified atrial fibrillation (ICD-10) Surgical History History of total knee arthroplasty ?Z96.659 - Presence of unspecified artificial knee joint (ICD-10) History of hip replacement ?Z96.649 - Presence of unspecified artificial hip joint (ICD-10) Previous back surgery ?Z98.890 - Other specified postprocedural states (ICD-10) History of shoulder surgery ?Z98.890 - Other specified postprocedural states (ICD-10) Meds Home Medications and Allergies Home Medications Medication Instructions Recorded Confirmed Type acetaminophen 500 mg oral powder 1,000 mg PO BID PRN pain 01/06/23 04/18/23 History packet (Tylenol Extra Strength) allopurinol 300 mg tablet 300 mg PO DAILY 01/06/23 04/18/23 History apixaban 5 mg tablet (Eliquis) 5 mg PO BID 01/06/23 04/18/23 History atorvastatin 40 mg tablet 40 mg PO DAILY 01/06/23 04/18/23 History bumetanide 1 mg tablet 1 mg PO DAILY 01/06/23 04/18/23 History eszopiclone 3 mg tablet 3 mg PO BEDTIME 01/06/23 04/18/23 History levothyroxine 150 mcg capsule 150 mcg PO DAILY 01/06/23 04/18/23 History magnesium oxide 400 mg PO DAILY 01/06/23 04/18/23 History oxycodone-acetaminophen 5 mg-325 1 tab PO BID 01/06/23 04/18/23 History mg tablet (Endocet) potassium chloride 20 mEq 20 meq PO DAILY 01/06/23 04/18/23 History tablet,extended release(part/cryst) pramipexole 0.25 mg tablet 0.25 mg PO DAILY 01/06/23 04/18/23 History (Mirapex) trazodone 50 mg tablet 50 mg PO DAILY 01/06/23 04/18/23 History Allergies Allergy/AdvReac Type Severity Reaction Status Date / Time fentanyl [From Duragesic] Allergy Unknown Verified 04/18/23 09:42 indomethacin [From Indocin] Allergy Unknown Verified 04/18/23 09:42 Penicillins Allergy Unknown Verified 04/18/23 09:42 zolpidem [From Ambien] Allergy Verified 04/18/23 09:42 Exam Constitutional Documenting provider has reviewed patient's vital signs: yes Common normals: no apparent distress, oriented x3, healthy appearing, alert and well nourished General appearance: cooperative [facility] Common normals: normocephalic, hearing grossly normal bilaterally and moist oral mucous membranes Head and scalp: normocephalic Eye Common normals: PERRL Pupil: PERRL Neck & C-Spine Common normals: full ROM General: normal visual inspection Chest Common normals: inspection of chest normal Respiratory Common normals: normal respiratory effort, no retractions and no use of accessory muscles Back & Pelvis Lumbar spine/lower back: ROM limited, pain with ROM and straight leg raise negative bilaterally Other: mild facet loading no radicular symptoms sensation intact in BLE 5/5 strength Extremity Common normals: normal to inspection and full ROM Neuro Common normals: oriented x3, CN's II-XII intact bilaterally, moves all extremities, no focal motor deficits, no sensory deficits noted and deep tendon reflexes 2+ bilaterally Sensorium/orientation: alert Motor exam: strength 5/5 throughout and no movement abnormalities noted Psych Common normals: mental status grossly normal, thought process normal, cooperative, affect normal, speech normal and activity/motor behavior normal Speech: normal speech Thought process: normal thought process Results Additional Findings Additional findings: If on a controlled substance or opioids, I have checked an [place] report on this patient today and there are no aberrancies noted in the prescribing history.?? A drug screen was completed and reviewed within the last year, and if there has not been a drug screen completed we ordered one today to monitor higher risk, state monitored pain medication use. As part of providing excellent, safe, comprehensive care, the following was completed at our patient's visit: Reviewed patients? medication reconciliation. An annual review has been completed for the following: screening for depression, screening for tobacco use, and screening for unhealthy alcohol use. For concerning screenings had a discussion with the patient, provided patient education, and recommended follow-up with primary care provider when appropriate. If patient noted with a risk of falling, they received education on strength, gait, and balance training to prevent future risk of falling. Assessment and Plan Assessment and Plan (1) Lumbar spondylosis: (2) Lumbar stenosis with neurogenic claudication: Plan continue tylenol arthritis PRN f/u 5 months, sooner if needed
== END 2023-05-18 08:50 | disposition home or self-care (01) ==
PROVIDERS: Visit Provider Nurse Practitioner
DX: M47.816 Spondylosis without myelopathy or radiculopathy, lumbar region (principal); M48.062 Spinal stenosis, lumbar region with neurogenic claudication
CPT/HCPCS: G0463

== ENCOUNTER 2023-09-14 14:47 | Outpatient (OUT) | payer MEDICARE, BC, SELFPAY ==
--- NOTE | 2023-09-14 15:43 | P.CN_ITS ---
Consult Note: HPI Data of Consult Patient: known to practice within the last 3 years Requesting Physician: Silvia Kimble NP Primary Care Provider: Non-Staff Physician, MD Consult Narrative Reason for consult: f/u Narrative: Irineo Mendes a pleasant 82 year old male presents for evaluation and management of chronic low back pain. Pain today 5/10 in low back, dull heavy ache, with increasing numbness tingling and weakness of legs. Hx of lumbar stenosis with NC, last MRI 2021. Patient has failed to benefit from greater than 6 weeks PT/HEP. Finds moderate benefit to tylenol and percocet without side effects, cannot take NSAIDs on eliquis. Axial low back pain improved from prior lumbar RFAs. cc:: CC: Silvia Kimble NP Review of Systems ROS Status of ROS 10 or more systems reviewed and unremark able except as noted in history and below Musculoskeletal Reports: back pain and extremity pain PFSH PFSH Medical History CHF (congestive heart failure) ?I50.9 - Heart failure, unspecified (ICD-10) Cataracts, bilateral ?H26.9 - Unspecified cataract (ICD-10) Low back pain ?M54.50 - Low back pain, unspecified (ICD-10) Hypothyroid ?E03.9 - Hypothyroidism, unspecified (ICD-10) Hypercholesterolemia ?E78.00 - Pure hypercholesterolemia, unspecified (ICD-10) Afib ?I48.91 - Unspecified atrial fibrillation (ICD-10) Surgical History History of total knee arthroplasty ?Z96.659 - Presence of unspecified artificial knee joint (ICD-10) History of hip replacement ?Z96.649 - Presence of unspecified artificial hip joint (ICD-10) Previous back surgery ?Z98.890 - Other specified postprocedural states (ICD-10) History of shoulder surgery ?Z98.890 - Other specified postprocedural states (ICD-10) Meds Home Medications and Allergies Home Medications ?Medication ?Instructions ?Recorded ?Confirmed ?Type acetaminophen 500 mg oral powder 1,000 mg PO BID PRN pain 01/06/23 04/18/23 History packet (Tylenol Extra Strength) allopurinol 300 mg tablet 300 mg PO DAILY 01/06/23 04/18/23 History apixaban 5 mg tablet (Eliquis) 5 mg PO BID 01/06/23 04/18/23 History atorvastatin 40 mg tablet 40 mg PO DAILY 01/06/23 04/18/23 History bumetanide 1 mg tablet 1 mg PO DAILY 01/06/23 04/18/23 History eszopiclone 3 mg tablet 3 mg PO BEDTIME 01/06/23 04/18/23 History levothyroxine 150 mcg capsule 150 mcg PO DAILY 01/06/23 04/18/23 History magnesium oxide 400 mg PO DAILY 01/06/23 04/18/23 History oxycodone-acetaminophen 5 mg-325 1 tab PO BID 01/06/23 04/18/23 History mg tablet (Endocet) potassium chloride 20 mEq 20 meq PO DAILY 01/06/23 04/18/23 History tablet,extended release(part/cryst) pramipexole 0.25 mg tablet 0.25 mg PO DAILY 01/06/23 04/18/23 History (Mirapex) trazodone 50 mg tablet 50 mg PO DAILY 01/06/23 04/18/23 History Allergies Allergy/AdvReac Type Severity Reaction Status Date / Time fentanyl [From Duragesic] Allergy Unknown Verified 04/18/23 09:42 indomethacin [From Indocin] Allergy Unknown Verified 04/18/23 09:42 Penicillins Allergy Unknown Verified 04/18/23 09:42 zolpidem [From Ambien] Allergy Verified 04/18/23 09:42 Exam Constitutional Documenting provider has reviewed patient's vital signs: yes Common normals: no apparent distress, oriented x3, healthy appearing, alert and well nourished General appearance: cooperative [facility] Common normals: normocephalic, hearing grossly normal bilaterally and moist oral mucous membranes Head and scalp: normocephalic Eye Common normals: PERRL Pupil: PERRL Neck & C-Spine Common normals: full ROM General: normal visual inspection Chest Common normals: inspection of chest normal Respiratory Common normals: normal respiratory effort, no retractions and no use of accessory muscles Back & Pelvis Lumbar spine/lower back: ROM limited, pain with ROM and straight leg raise negative bilaterally Other: mild facet loading no radicular symptoms altered sensation to LLE following L4,5,S1 pattern strength 4/5 in BLE Extremity Common normals: normal to inspection and full ROM Neuro Common normals: oriented x3, CN's II-XII intact bilaterally, moves all extremities, no focal motor deficits, no sensory deficits noted and deep tendon reflexes 2+ bilaterally Sensorium/orientation: alert Gait (neuro): antalgic and assistive device used cane Motor exam: no movement abnormalities noted and strength abnormal Psych Common normals: mental status grossly normal, thought process normal, cooperative, affect normal, speech normal and activity/motor behavior normal Speech: normal speech Thought process: normal thought process Results Additional Findings Additional findings: If on a controlled substance or opioids, I have checked an [place] report on this patient and there are no aberrancies noted in the prescribing history.??If on a controlled substance or opioid a drug screen was completed and reviewed within the last year, and if there has not been a drug screen completed we ordered one today to monitor higher risk, state monitored pain medication use. As part of providing excellent, safe, comprehensive care, the following was completed at our patient's visit: 1. A medication reconciliation and review to ensure accurate knowledge of current/active medications, including asking our patients to inform us about any [id number] medications or herbal remedies/nutritional supplements/alternative remedies. 2. A review to specifically ensure our patients have had annual screening for screening for depression, screening for tobacco use, and screening for unhealthy alcohol use. For concerning screenings had a discussion with the patient, provided patient education, and recommended follow-up with primary care provider when appropriate. If patient noted with a risk of falling, they received educ ation on strength, gait, and balance training to prevent future risk of falling. Assessment and Plan Assessment and Plan (1) Lumbar stenosis with neurogenic claudication: (2) Lumbar radiculopathy: (3) Lumbar spondylosis: Plan update lumbar MRI without contrast to evaluate chronic low back pain and lumbar stenosis with NC continue current medications, tolerating well without side effects f/u after MRI
== END 2023-09-14 14:48 | disposition home or self-care (01) ==
LOC: PM 14:47
PROVIDERS: Visit Provider Nurse Practitioner
DX: M48.062 Spinal stenosis, lumbar region with neurogenic claudication (principal); M47.26 Other spondylosis with radiculopathy, lumbar region
CPT/HCPCS: G0463

== ENCOUNTER 2023-09-27 09:29 | Outpatient (OUT) | payer MEDICARE, BC, SELFPAY ==
--- NOTE | 2023-09-27 09:38 | MR_ITS ---
The [address] [address] Patient Name: TAVO WALLIS MRN: [id number] date: 1940 Sex: M Assigned Patient Location: MRI Current Patient Location: MRI Accession/Order Number: [id number] Exam Date: 09/27/2023 10:10 Report Date: 09/29/2023 11:50 At the request of: SIXTO SIMMONS Procedure: MR lumbar spine wo con MRI LUMBAR SPINE WITHOUT CONTRAST, 09/27/2023. HISTORY: Chronic low back pain. Previous lumbar spine surgery. COMPARISON: MRI lumbar spine without contrast, 05/24/2021. TECHNIQUE: Multiplanar, multisequence MRI imaging of the lumbar spine without contrast. FINDINGS: There is an exaggerated lumbar lordosis. There is grade 1 spondylolisthesis at L4-5 measuring 5 mm. This is stable. There is grade 1 retrolisthesis at L2-3 measuring 3 mm which is stable. No acute compression fracture. There appears to be some mild bone marrow edema on the left side of the sacrum along the left sacral ala on the STIR images with some hyperintense signal in this location. On the axial T1 images, there is some hypointense signal oriented in a linear fashion along the left sacral ala suspicious for a mild sacral insufficiency fracture on the left side of the sacrum. This is new from the prior. L5-S1, there are postoperative changes from previous laminectomy. The disc space is normal in height. No disc herniation. No spinal canal stenosis. There is mild left foraminal narrowing. L4-5, moderate to severe degenerative disc disease stable. Grade 1 spondylolisthesis stable. There has been a previous laminectomy. There is osseous fusion across the facet joints. There is mild central spinal canal stenosis. Spondylolisthesis and disc space narrowing result in severe foraminal stenosis bilaterally, left greater than right. These findings are stable. This level is unchanged. L3-4, there has been a previous laminectomy at this level. Severe facet arthropathy bilaterally with severe facet hypertrophy. Severe degenerative disc disease. Severe facet hypertrophy results in severe central spinal canal stenosis with severe effacement of the thecal sac. This is stable from the prior. Disc space narrowing and osteophytes result in severe foraminal narrowing bilaterally which is stable. This level is unchanged. L2-3, there has been a previous laminectomy. There is severe degenerative disc disease. Grade 1 retrolisthesis. Severe facet arthropathy. There is severe spinal canal stenosis which appears stable. Severe right foraminal narrowing stable. Moderate left foraminal narrowing stable. L1-2, moderate degenerative disc disease. No spinal stenosis. No foraminal narrowing. No abnormal signal in the conus medullaris. There is clumping of the nerve roots of the cauda equina and the thecal sac from L2-3 through L5-S1. The nerve roots appear somewhat thickened. There are some areas of dark signal on T2-weighted throughout the thecal sac in these areas on the sagittal T2 images. These findings suggest chronic arachnoiditis. The findings are stable. No paraspinal mass. There is chronic atrophy of the left psoas muscle. MR/MR lumbar spine wo con IMPRESSION: 1. There appears to be some bone marrow edema on the left side of the sacrum along the left sacral ala concerning for a mild sacral insufficiency fracture which is new from the prior. 2. There is no acute compression fracture. The remainder of the lumbar spine is stable from the prior. 3. There are postoperative changes from previous laminectomy at L2-3 through L5-S1. There is abnormal thickening and clumping of the nerve roots of the cauda equina within the thecal sac from L2-3 through L5-S1 most likely related to chronic arachnoiditis. This is stable. 4. Grade 1 anterolisthesis at L4-5 and grade 1 retrolisthesis at L2-3 stable. Severe multilevel degenerative disc disease and facet arthropathy. There is severe spinal canal stenosis at L2-3 and L3-4 which is stable. 5. Foraminal narrowing at multiple levels as described above is stable. Electronically authenticated by: MANJIT KOROMA Date: 09/29/2023 11:50
--- OUTSIDE RECORDS SUMMARY | 2023-09-27 09:49 | XMS_ITS | CCD ---
Author Organization [facility] Care Team Providers Care Triage Nurse Name Role Phone Rice Dontrell W Unavailable Unavailable Rice, Dontrell W Unavailable Unavailable Rice, Dontrell W Unavailable Unavailable NONE, XXXX Unavailable Unavailable Feliciano Ga Unavailable Unavailable Unavailable Feliciano Ga Unavailable DO Feliciano Ga Primary Care Provider AKUA Rodarte Attending Provider DO Feliciano Ga Attending Provider DO Feliciano Ga Primary Care Provider [phone] DO Feliciano Ga Attending Provider [phone] MD Frankie Paiz Emergency Provider DO Dharmesh Zavala Admit Provider [phone] DO Dharmesh Zavala Attending Provider Shy Mcdonough Other Provider Unavailable DO Meme De La Torre Other Provider MD Mani Dickens Other Provider DO Matheus Rizvi Other Provider [phone] Antonia ANP- Hoa Other Provider DO Vikas Mane Other Provider RIKY Degroot Other Provider MD Raji Ennis Attending Provider [phone] MD Frankie Reynolds Other Provider RIKY Mix Attending Provider Kuns, DO Feliciano Myers Attending Provider [phone] Kuns, DO Feliciano Primary Care Provider Kuns, DO Feliciano Myers Attending Provider Kuns, Dr. Feliciano Parker Primary Care Unavaila cb Gomez, Dane Enedelia Raegan San Attending Rula Gomez, Dane San Referring Unavai noe Ga, Dr. Feliciano Parker Primary Care Unavaila cb Gomez, Dane Enedelia Gusmanshelia San Attending Rula Gomez, Dane Enedeliadano San Referring Nichellevai noe Ga, Dr. Feliciano Parker Primary Care Unavaila ble Urena, Marv Referring Unavailable Kuncatie, Dr. Feliciano Parker Primary Care Unavaila ble Urena, Marv Attending Unavailable Harmeet, Dr. Feliciano Parker Primary Care Unavaila ble Francisco Javier, Irineo Attending Unavailable Francisco Javier, Irineo Referring Unavailable Harmeet, Dr. Feliciano Parker Primary Care Unavaila ble Irineo Mcintyre Attending Unavailable Irineo Mcintyre Referring Unavailable Harmeet, Dr. Feliciano Parker Primary Care Unavaila ble Urena, Marv Attending Unavailable Urena, Marv Attending Unavailable Harmeet, Dr. Feliciano Parker Primary Care Unavaila ble Urena, Marv Attending Unavailable Harmeet, Dr. Feliciano Parker Primary Care Unavaila ble KOSTA ., DR TROY Haddad Admitting Unavailable BRAMBILA ., DR TROY Haddad Consulting Unavailable BRAMBILA ., DR TROY Haddad Attending Unavailable HARMEET, DR WIGGINS Primary Care Unavailable KOSTA ., DR TROY Haddad Admitting Unavailable BRAMBILA ., DR TROY Haddad Attending Unavailable EDUARDO .MONSERRAT Consulting Unavailable HARMEET, DR WHITTINGTON Primary Care Unavailable KOSTA ., DR TROY Haddad Admitting Unavailable BRAMBILA ., DR TROY Haddad Consulting Unavailable BRAMBILA ., DR TROY Haddad Attending Unavailable HARMEET, DR WHITTINGTON Primary Care Unavailable RODARTE ., MONSERRAT Consulting Unavailable HARMEET, DR WHITTINGTON Consulting Unavailable KOSTA ., DR TROY Haddad Admitting Unavailable BRAMBILA ., DR TROY Haddad Consulting Unavailable BRAMBILA ., DR TROY Haddad Attending Unavailable HARMEET, DR WHITTINGTON Primary Care Unavailable HARMEET, DR WHITTINGTON Consulting Unavailable HALKISHORE .DOMINIC Attending Unavailable HALKER ., DOMINIC Admitting Unavailable HARMEET, DR WHITTINGTON Primary Care Unavailable KUNS, DR WHITTINGTON Primary Care Unavailable BRAMBILA ., DR TROY Haddad Admitting Unavailable BRAMBILA ., DR TROY Haddad Attending Unavailable RODARTE ., MONSERRAT Consulting Unavailable KUNS, DR WHITTINGTON Primary Care Unavailable [...] Primary Care Unavailable EDILMA MANDEL Attending Unavailable EDILMA MANDEL Admitting Unavailable RONALD ISRAEL Consulting Unavailable KUNS, DR WIGGINS Primary Care Unavailable EDILMA MANDEL Consulting Unavailable BRAMBILA ., DR TROY Haddad Admitting Unavailable BRAMBILA ., DR TROY Haddad Consulting Unavailable BRAMBILA ., DR TROY Haddad Attending Unavailable KUNS, DR WHITTINGTON Primary Care Unavailable LAKSHMIPATHY ., NARENDRANATH Admitting Nichelle vailable LAKSHMIPATHY ., NARENDRANATH Consulting Nichelle vailable HARMEET, DR WHITTINGTON Primary Care Unavailable LAKSHMIPATHY ., MICHAELENDSTEVENATH Attending Nichelle vailable HALKER ., DOMINIC Consulting Unavailable BRAMBILA ., DR TROY Haddad Admitting Unavailable BRAMBILA ., DR TROY Haddad Attending Unavailable RODARTE ., MONSERRAT Consulting Unavailable HARMEET, DR WIGGINS Primary Care Unavailable DO Feliciano Ga Primary Care Provider [phone] DO Feliciano Ga Attending Provider Giedraitis , Andrius Vytautbubba Attending Unavailable Giedraitis , Andrius Vytautas Attending Unavailable Giedraitis , Andrius Vytautas Attending Unavailable Giedraitis , Andrius Vytautas Attending Unavailable KunFeliciano haddad DO Primary Care Provider IRINEO MCINTYRE Attending Unavailable FELICIANO GA Primary Care Unavailable DO Feliciano Ga Primary Care Provider DO Bhupinder Mcintyre Attending Provider [phone] DO Feliciano Ga Attending Provider Feliciano Ga Primary Care Unavailable Bhupinder Mcintyre Admitting Unavailable Bhupinder Mcintyre Attending Unavailable Feliciano Ga Attending Unavailable Feliciano Ga Admitting Unavailable Feliciano Ga Primary Care Unavailable Allergies Allergy Classification Reported Allergen(s) Allergy Type Date of Onset Reaction(s) Facility (20 sources) fentaNYL; Translations: [fentaNYL] Drug Allergy 0 Dizziness, Nausea Only [facility] (20 sources) indomethacin; Translations: [Indocin] Drug Allergy Other [facility] (20 sources) penicillin; Translations: [penicillin] Drug Allergy 4 anaphylaxis [facility] (1 source) Duragesic-25; Translations: [Duragesic-25] Propensity to adverse reactions (disorder) [facility] (1 source) FentaNYL Matrix; Translations: [FentaNYL Matrix] Propensity to adverse reactions (disorder) AOF [facility] (20 sources) fentaNYL; Translations: [Duragesic-75 PT72] Drug [facility], [facility] Work Phone: (20 sources) Penicillins; Translations: [Penicillins] Allergy to drug (finding) 0 Other, Weakness [facility] (20 sources) zolpidem; Translations: [Ambien] Drug Allergy [address] Work [facility]: (20 sources) Indomethacin; Translations: [INDOMETHACIN] Drug Allergy 0 Other [facility] (20 sources) Duragesic-75 Drug allergy 4 nausea [facility] (10 sources) zolpidem; Translations: [ZOLPIDEM] Drug Allergy 0 Confusion, Confusion, memory loss [facility] (1 source) fentaNYL Drug Allergy [facility] (2 sources) Penicillins Drug allergy (disorder) 5 [facility] (1 source) zolpidem Drug Allergy [facility] (1 source) Penicillins Drug Allergy 3 Other [facility] Work Phone: Medications Current Medications Medication Drug Class(es) Dates Sig (Normalized) Sig (Original) acetaminophen 325 mg oral tablet (20 sources) Start: 06-06-2023 take 1 tablet by mouth every six hours Acetaminophen (Tylenol) 325 mg tablet Active 325 MG PO Every 6 hours June 06, 2023 12:00am Start: 01-04-2020 End: 06-06-2023 take 1000 mg by mouth twice daily Acetaminophen Discontinued 1000 MG PO Twice daily January 04, 2020 12:00am June 06, 2023 11:56am Start: 10-17-2019 End: 11-06-2019 take 2 tablets by mouth twice daily Acetaminophen (Tylenol) 325 mg Tablet Discontinued 650 MG PO Twice daily October 17, 2019 12:00am November 06, 2019 9:42am take 1 capsule by mo uth every six hours Tylenol 325 MG 1 capsule as needed Orally every 6 hrs Active acetaminophen 325 mg / oxyCODONE hydrochloride 5 mg oral tablet (20 sources) Opioid Agonist Start: 06-06-2023 take 1 tablet by mouth every six hours as needed Oxycodone-Acetaminophen Active 1 TAB PO Every 6 hours June 06, 2023 12:00am FreeTextSi tablet as needed Orally every 6 hrs; Note: Source Status: TakingDr. Kosta HERRERA; Provider: Harmeet Wiggins ( ) Start: 02-18-2022 take 1 tablet by ck th twice daily oxyCODONE-acetaminophen (Percocet) 5-325 mg tablet Take 1 tablet by mouth 2 times a day. 07/08/2022 Active Start: 01-16-2022 End: 06-06-2023 take 1 tablet by mouth every eight hours Oxycodone-Acetaminophen Discontinued 1 T AB PO Q8H 9 3 January 16, 2022 June 06, 2023 11:57am Start: 01-04-2020 End: 01-16-2022 take 1 tablet by mouth every four hours Oxycodone-Acetaminophen Discontinued 1 T AB PO Q4H 30 7 January 04, 2020 January 16, 2022 1:30pm Start: 11-06-2019 End: 01-04-2020 take 1 tablet by mouth every four to six hours Oxycodone-Acetaminophen (Percocet) 5-325 mg tablet Discontinued 1 - 2 TAB PO EVERY 4-6 HOURS 30 7 November 06, 2019 January 04, 2020 12:33pm take 1 tablet by ck th every six hours oxyCODONE-Acetaminophen 5-325 MG 1 table t as needed Orally every [address] Brambila PRN Active azithromycin 250 mg oral tablet (3 sources) Macrolide Antimicrobial Start: 09-15-2022 Zithro max Z-Jed 250 MG as directed Orally Sep, Active Compression Pump (20 sources) Start: 02-11-2015 Compression Pu mp as directed to bilateral lower extremity Q other PM Feb, Active compression stockings 30-40 mmhg (20 sources) Start: 09-28-2017 compression stockings 30-40 mmhg as directed knee high as directed 2 pair 30-40mmhg size xs. 5 gvaris, [id number], [place] [id number] Sep, Active Start: 09-28-[address] ockings 30-40 mmhg as directed knee high as directed 2 pair Sep, Active docusate sodium 100 mg oral capsule (20 sources) Start: 06-06-2023 take 100 mg by mouth once daily Docusate Sodium Active 100 MG PO Daily June 06, 2023 12:00am Start: 11-06-2019 End: 06-06-2023 take 1 capsule by mouth twice daily Docusate Sodium (Dok) 100 mg Capsule Discontinued 100 MG PO Twice daily 60 January 04, 2020 12:00am June 06, 2023 11:57am take 1 capsule by mo [facility] every twenty-four hours Colace 100 MG 1 capsule as needed Orally Once a day Active Magnesium (20 sources) Magnesium 400 MG Orally Active take 1 tablet by mouth once pernell y Magnesium 400 MG Oral Tablet Take 1 tablet daily Quantity: 0 Refills: 0 Ordered: 05-Jan-2021 DO Active magnesium oxide 400 mg oral capsule (20 sources) Start: 06-06-2023 take 400 mg by mouth once daily Magnesium Oxide Active 400 MG PO Daily June 06, 2023 12:00am Start: 02-16-2023 take 1 tablet by ck th once daily magnesium oxide (Mag-Ox) 400 mg (241.3 mg magnesium) tablet Indications: Chronic atrial fibrillation (Multi) TAKE 1 TABLET BY MOUTH EVERY DAY 90 tablet 3 02/16/2023 Active Start: 02-15-2022 take 1 tablet by ck th once daily Magnesium Oxide 400 (240 Mg) MG Oral Tablet TAKE 1 TABLET BY MOUTH EVERY DAY Quantity: 90 Refills: 3 Ordered: 16-Feb-2022 Irineo Mcintyre DO Start : 15-Feb-2022 Active Start: 10-17-2019 End: 07-13-2023 take 400 mg by mouth once daily Magnesium Oxide Discon tinued 400 MG PO Daily January 04, 2020 12:00am June 06, 2023 11:57am Multi For Him (20 sources) Multi For Him Ac tive Multivitamin (Daily Multi-Vitamin) tablet (2 sources) Start: 06-06-19 take 1 tablet by mouth once daily Multivitamin (Daily Multi-Vitamin) tablet Active 1 TAB PO Daily June 06, 2023 12:00am mupirocin 0.02 mg/mg topical ointment (17 sources) RNA Synthetase Inhibitor Antibacterial Start: 06-06-19 Mupirocin Active 1 APPLIC TOPICAL Twice daily June 06, 2023 12:00am FreeTextSi application Externally Twice a day; Note: Source Status: Taking; Refills: 1; Qty: 60 gram; Provider: Harmeet Myers Start: 01-07-2022 Mupirocin 2 % 1 application Externally Twice a day Jan, Active nystatin 100 unt/mg topical powder (15 sources) Polyene Antifungal Start: 06-06-2023 Nystatin Ac tive 1 APPLIC TOPICAL Twice daily June 06, 2023 12:00am FreeTextSi application Externally Twice a day; Note: Source Status: Taking; Refills: 3; Provider: Harmeet Myers Start: 02-09-2022 Nystatin 98496 0 UNIT/GM 1 application Externally Twice a day for 30 days Feb, Active Completed/Discontinued Medications Medication Drug Class(es) Dates Sig (Normalized) Sig (Original) acetaminophen 325 mg / HYDROcodone bitartrate 5 mg oral tablet (9 sources) Opioid Agonist Start: 11-06-2019 End: 11-06-2019 take 1 tablet by mouth every six hours Hydrocodone-Acetami nophen (Garrison) 5-325 mg tablet Discontinued 1 TAB PO Q6H November 06, 2019 November 06, 2019 9:42am Start: 11-06-2019 End: 11-06-2019 take 1 tablet by mouth every six hours Hydrocodone-Acetaminophen (Garrison) 5-325 mg tablet Discontinued 1 TAB PO Q6H November 06, 2019 November 06, 2019 9:42am Start: 11-06-2019 End: 11-06-2019 take 1 tablet by mouth every six hours Hydrocodone-Acetaminophen (Garrison) 5-325 mg tablet Discontinued 1 TAB PO Q6H November 06, 2019 November 06, 2019 9:42am Start: 11-06-2019 End: 11-06-2019 take 1 tablet by mouth every six hours Hydrocodone-Acetaminophen (Garrison) 5-325 mg tablet Discontinued 1 TAB PO Q6H November 06, 2019 November 06, 2019 8:42am Start: 11-06-2019 End: 11-06-2019 take 1 tablet by mouth every six hours Hydrocodone-Acetaminophen (Garrison) 5-325 mg tablet Discontinued 1 TAB PO Q6H November 06, 2019 November 06, 2019 8:42am Start: 11-06-2019 End: 11-06-2019 take 1 tablet by mouth every six hours Hydrocodone-Acetaminophen (Garrison) 5-325 mg tablet Discontinued 1 TAB PO Q6H November 06, 2019 November 06, 2019 8:42am Start: 11-06-2019 End: 11-06-2019 take 1 tablet by mouth every six hours Hydrocodone-Acetaminophen (Garrison) 5-325 mg tablet Discontinued 1 TAB PO Q6H November 06, 2019 November 06, 2019 8:42am Start: 11-06-2019 End: 11-06-2019 take 1 tablet by mouth every six hours Hydrocodone-Acetaminophen (Garrison) 5-325 mg tablet Discontinued 1 TAB PO Q6H November 06, 2019 November 06, 2019 9:42am Start: 11-06-2019 End: 11-06-2019 take 1 tablet by mouth every six hours Hydrocodone-Acetaminophen (Garrison) 5-325 mg tablet Discontinued 1 TAB PO Q6H November 06, 2019 November 06, 2019 9:42am allopurinol 300 mg oral tablet (20 sources) Xanthine Oxidase Inhibitor Start: 10-24-2017 End: 06-09-2023 take 300 mg by mouth once daily Allopurinol Discontinued 300 MG PO Daily 90 June 09, 2023 2:16pm June 09, 2023 2:18pm apixaban 5 mg oral tablet (20 sources) Factor Xa Inhibitor Start: 10-17-2019 End: 07-13-2023 take 1 tablet by mouth twice daily Apixaban (Eliquis) 5 mg Tablet Discontinued 5 MG PO Twice daily January 04, 2020 12:00am June 06, 2023 11:57am atorvastatin 40 mg oral tablet (20 sources) HMG-CoA Reductase Inhibitor Start: 10-17-2019 End: 09-01-2023 take 40 mg by mouth once daily Atorvastatin Discontinued 40 MG PO Daily June 06, 2023 12:00am September 01, 2023 2:09pm azelastine hydrochloride 0.137 mg/actuat metered dose nasal spray (9 sources) Histamine-1 Receptor Antagonist Start: 10-17-2019 End: 10-17-2019 Azelastine Discontinued INTRANASAL October 17, 2019 12:00am October 17, 2019 5:12pm azelastine / fluticasone (9 sources) Corticosteroid, Histamine-1 Receptor Antagonist Start: 10-17-2019 End: 12-24-2019 Azelastine-Flutica sone Discontinued 1 SPRAY INTRANASAL Twice daily October 16, 2019 11:00pm December 24, 2019 10:02am Start: 10-17-2019 End: 12-24-2019 Azelastine-Fluticasone Disco ntinued 1 SPRAY INTRANASAL Twice daily October 17, 2019 12:00am December 24, 2019 11:02am bumetanide 1 mg oral tablet (20 sources) Loop Diuretic Start: 01-16-2022 End: 06-06-2023 take 1 mg by mouth once daily Bumetanide Discontinued 1 MG PO Daily June 06, 2023 12:00am June 06, 2023 3:49pm Start: 01-09-2022 End: 01-16-2022 take 0.5 mg by mouth once daily Bumetanide Discontinue d 0.5 MG PO DAILY@0800 January 09, 2022 2:35pm January 16, 2022 1:30pm Start: 01-14-2016 End: 01-09-2022 take 1 mg by mouth once daily Bumetanide Discontinued 1 MG PO DAILY@0800 30 January 04, 2020 12:00am January 09, 2022 2:35pm Start: 01-14-2016 take 0.5 tablet by m out once daily as needed Bumex 1 MG 0.5 tablet Orally Once a day PRN Jan, Active Start: 01-14-2016 take 1 tablet by ck th every other day as needed Bumex 1 MG 1 tablet Orally every other day PRN Jan, Active carvedilol 6.25 mg oral tablet (20 sources) alpha-Adrenergic Saroj, beta-Adrenergic Saroj Start: 10-17-2019 End: 01-16-2022 take 6.25 mg by mouth twice daily at mealtime Carvedilol Discontinued 6.25 MG PO Twice daily with meals January 04, 2020 12:00am January 16, 2022 1:30pm cephalexin 500 mg oral capsule (9 sources) Cephalosporin Antibacterial Start: 04-11-2017 End: 04-21-2017 take 1 capsule by mouth every twelve hours Cephalexin (Keflex) 500 mg capsule Discontinued 500 MG PO Q12H 20 April 11, 2017 1:00am April 21, 2017 1:02am diclofenac sodium 0.01 mg/mg topical gel (9 sources) Nonsteroidal Anti-inflammatory Drug Start: 01-04-2020 End: [...] 2022 1:30pm take 1 tablet by ck every twenty-four hours Digoxin 125 MCG 1 tablet Orally Once a day Active eszopiclone 3 mg oral tablet (20 sources) Start: 11-16-2021 End: 06-06-2023 take 3 mg by mouth once daily at bedtime Eszopiclone Discontinued 3 MG PO Daily at bedtime June 06, 2023 12:00am June 06, 2023 3:49pm Start: 11-25-2020 take 1 tablet by ck [...] propionate 0.05 mg/actuat metered dose nasal spray (16 sources) Corticosteroid Start: 01-09-2022 End: 06-06-2023 Fluticasone Propionate Discontinued 1 SPRAY NARES-BOTH Daily at bedtime January 09, 2022 2:10pm June 06, 2023 11:57am Start: 01-04-2020 End: 01-09-2022 Fluticasone Propionate Disco ntinued 1 SPRAY NARES-BOTH Twice daily January 04, 2020 12:00am January 09, 2022 2:10pm folic acid 2.5 mg / vitamin b12 [...] 3 mL lactulose 667 mg/ml oral solution (12 sources) Osmotic Laxative Start: 01-04-2020 End: 01-09-2022 take 30 g by mouth once daily Lactulose Discontinued 30 GM PO Daily January 04, 2020 12:00am January 09, 2022 2:11pm Lactulose Not-Ta patti levothyroxine sodium 0.15 mg oral tablet (20 sources) l-Thyroxine Start: 08-31-2021 Synthroid 150 MCG 1 tablet every morning on an empty stomach Orally Once a day Aug, Active Start: 08-31-2021 Synthroid 137 MCG 1 tablet every morning on an empty stomach Orally Once a day for 90 days Aug, Active Start: 10-17-2019 End: 09-21-2023 take 1 tablet by mouth once daily in the morning Levothyroxine (Synthroid) 150 mcg tablet Discontinued 150 MCG PO Every morning June 06, 2023 12:00am September 21, 2023 9:53am Start: 10-17-2017 Synthroid 150 MCG 1 tablet every morning on an empty stomach Orally Once a day Oct, Active melatonin 5 mg oral tablet (9 sources) Start: 01-04-2020 End: 01-09-2022 take 5 [...] 17, 2019 12:00am January 04, 2020 12:34pm 24 hr oxybutynin chloride 10 mg extended release oral tablet (20 sources) Cholinergic Muscarinic Antagonist Start: 06-06-2023 End: 09-21-2023 take 10 mg by mouth once daily Oxybutynin Chloride Discontinued 10 MG PO Daily June 06, 2023 12:00am September 21, 2023 9:55am Start: 01-04-2020 End: 01-09-2022 take 10 mg by mouth once daily at lunch Oxybutynin Chloride Discontinued 10 MG PO Daily with lunch January 04, 2020 12:00am January 09, 2022 2:36pm Start: 10-17-2019 End: 01-04-2020 take 10 mg by mouth once daily at lunch Oxybutynin Chloride Discontinued 10 MG PO Daily with lunch October 17, 2019 12:00am January 04, 2020 12:34pm microencapsulated potassium chloride 20 meq extended release oral tablet (20 sources) Start: 01-04-2020 End: 06-07-2023 take 20 mEq by mouth once daily Potassium Chloride Discontinued 20 MEQ PO Daily June 06, 2023 12:00am June 07, 2023 1:46pm Start: 12-21-2019 End: 01-04-2020 take 20 mEq by mouth at bedtime Potassium Chloride Dis continued 20 MEQ PO Bedtime December 21, 2019 12:00am January 04, 2020 12:33pm Start: 11-02-2016 take 1 tablet by ck th once daily K-Dur 20 mEq 1 tablet orally Once a day Oct, Active sacubitril 24 mg / valsartan 26 mg oral tablet (20 sources) Angiotensin 2 Receptor Saroj Start: 10-17-2019 End: 01-16-2022 take 1 tablet by mouth twice daily Sacubitril-Valsartan (Entresto) 24-26 mg Tablet Discontinued 1 TAB PO Twice daily 60 January 04, 2020 12:00am January 16, 2022 1:30pm ENTRESTO 24 mg/2 6 mg 1 orally twice a day Active sulfamethoxazole 800 mg / trimethoprim 160 mg oral tablet (17 sources) Dihydrofolate Reductase Inhibitor Antibacterial, Sulfonamide Antimicrobial [...] 21, 2019 12:00am December 25, 2019 1:37pm traZODone hydrochloride 50 mg oral tablet (20 sources) Serotonin Reuptake Inhibitor Start: 01-09-2022 End: 06-06-2023 take 50 mg by mouth once daily at bedtime Trazodone Discontinued 50 MG PO Daily at bedtime June 06, 2023 12:00am June 06, 2023 3:49pm Triamcinolone (20 sources) Corticosteroid Start: 07-17-2019 Kenalog -40 mg July, 40 mg Problems Active Problems Problem Classification Problem Date Documented Da te Episodic/Chronic Cardiac dysrhythmias (20 sources) Chronic atrial fibrillation; Translations: [Atrial fibrillation] Onset: 01-19-2021 Resolved: 10-12-2021 Chronic Cardiac dysrhythmias (9 sources) Bradycardia; Translations: [Bradycardia, unspecified] 01-10-2022 Episodic Congestive heart failure; nonhypertensive (20 sources) Heart failure; Translations: [Heart failure, unspecified] Onset: 08-31-2021 Resolved: 10-12-2021 Chronic Coronary atherosclerosis and other heart disease (20 sources) Coronary atherosclerosis; Translations: [Coronary atherosclerosis of unspecified type of vessel, [place] or graft] Onset: 02-16-2023 02-16-2023 Chronic Disorders of lipid metabolism (20 sources) Hyperlipidemia; Translations: [Other and unspecified hyperlipidemia] Onset: 01-19-2021 Resolved: 08-31-2021 Chronic E Codes: Fall (13 sources) Unspecified fall, initial encounter; Translations: [Fall] Episodic Essential hypertension (20 sources) Benign essential hypertension; Translations: [Benign essential hypertension] Onset: 08-31-2021 Resolved: 08-31-2021 Chronic Fever of unknown origin (8 sources) Fever; Translations: [Fever, unspecified] 01-13-2022 Episodic Fluid and electrolyte disorders (9 sources) Dehydration; Translations: [Dehydration] 11-09-2019 Episodic Genitourinary symptoms and ill-defined conditions (1 source) Urge incontinence; Translations: [URGE INCONTINENCE] Onset: 05-17-2022 Chronic Genitourinary symptoms and ill-defined conditions (9 sources) Retention of urine; Translations: [Retention of urine, 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-2022 Episodic Gout and other crystal arthropathies (20 sources) Gout; Translations: [Gout, unspecified] Onset: 09-04-2021 Resolved: 09-04-2021 Chronic Hyperplasia of prostate (20 sources) Benign prostatic hyperplasia; Translations: [Benign prostatic hyperplasia without lower urinary tract symptoms] Onset: 01-19-2021 Resolved: 01-19-2021 Chronic Malaise and fatigue (20 sources) Asthenia; Translations: [Weakness] Onset: 09-14-2021 12-21-2019 Episodic Mycoses (1 source) Candidiasis, unspecified Episodic Neoplasms of unspecified nature or uncertain behavior (9 sources) Ependymoma ; 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, 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-2022 Chronic Open wounds of extremities (1 source) Laceration without foreign body of left upper arm, initial encounter Episodic Open wounds of head; neck; and trunk (9 sources) Laceration - injury; Translations: [Laceration] 04-11-2017 [...] neuritis, unspecified] Episodic Other connective tissue disease (6 sources) Recurrent falls ; Translations: [Repeated falls] 01-09-2022 Episodic Other connective tissue disease (3 sources) Repeated falls; Translations: [History of fall] 01-16-2022 Episodic Other connective tissue disease (1 source) [...] Constipation; Translations: [Constipation, 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-2022 Episodic Other gastrointestinal disorders (3 sources) Constipation, unspecified; Translations: [Constipation, unspecified] 01-16-2022 Episodic Other hematologic conditions (5 sources) Raised cardiac enzyme or marker; Translations: [Other specified abnormalities of plasma proteins] 01-09-2022 Episodic Other hematologic conditions (4 sources) Other specified abnormalities of plasma proteins; Translations: [Other abnormal blood chemistry] 01-09-2022 Episodic Other lower respiratory disease (7 sources) Hypoxemia; Translations: [Hypoxemia] 01-09-2022 Episodic Other lower respiratory disease (4 sources) Hypoxemia; Translations: [Hypoxemia] 01-09-2022 Episodic Other nervous system disorders (20 sources) Chronic pain; Translations: [Other chronic pain] Chronic Other nervous system disorders (1 source) Other chronic pain Onset: 01-19-2021 Resolved: 01-19-2021 Chronic Other nervous system disorders (6 sources) Difficulty walking; Translations: [Difficulty in walking, 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] 01-09-2022 Chronic Other nervous system disorders (3 sources) Difficulty in walking, 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; Translations: [Difficulty in walking] 01-16-2022 Chronic Other non-traumatic joint disorders (20 sources) Multiple joint pain; Translations: [Pain in unspecified joint] Episodic Other non-traumatic joint disorders (9 sources) Ankle pain; Translations: [Pain in left ankle and joints of left foot] 12-31-2019 Episodic Other nutritional; endocrine; and metabolic disorders (1 source) Body mass index 30+ - obesity; Translations: [Body Mass Index 33.0-33.9, adult] Chronic Other nutritional; endocrine; and metabolic disorders (20 sources) Obesity; Translations: [Obesity, unspecified] Chronic Other nutritional; endocrine; and metabolic disorders (1 source) Abnormal weight loss Episodic Other nutritional; endocrine; and metabolic disorders [...] (20 sources) Cardiomyopathy; Translations: [Other primary cardiomyopathies] Onset: 02-16-2023 02-16-2023 Chronic Pleurisy; pneumothorax; pulmonary collapse (9 sources) Pleural effusion; Translations: [Pleural effusion, 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] 01-09-2022 Episodic Residual codes; unclassified (6 sources) Sleep apnea; Translations: [Sleep apnea, 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-2022 Chronic Residual codes; unclassified (3 sources) Sleep apnea, unspecified; Translations: [Unspecified sleep apnea] 01-16-2022 Chronic Residual codes; unclassified (7 sources) Swelling - edema - symptom; Translations: [Edema] Episodic Residual codes; unclassified (20 sources) Edema; Translations: [Edema] Onset: 02-16-2023 12-26-2019 Episodic Residual codes; unclassified (20 sources) Insomnia; Translations: [Insomnia, unspecified] 06-06-2023 Episodic Residual codes; unclassified (8 sources) Insomnia, unspecified Onset: 03-05-2021 Resolved: 09-04-2021 Episodic Residual codes; unclassified (9 sources) Activity of daily living (ADL) alteration; Translations: [Other specified health status] 12-21-2019 Episodic Residual codes; unclassified (9 sources) Edema, generalized; Translations: [Generalized edema] 12-21-2019 Episodic Residual codes; unclassified (9 sources) Patient encounter status; Translations: [Encounter for prophylactic measures, unspecified] 12-26-2019 Episodic Residual codes; unclassified (9 sources) Altered mental status; Translations: [Altered mental status, unspecified] 11-09-2019 Episodic Residual codes; unclassified (1 source) Localized edema Episodic Residual codes; unclassified (3 sources) Altered mental status, unspecified; Translations: [Altered mental status] 01-16-2022 Episodic Residual codes; unclassified (3 sources) Generalized edema; Translations: [Edema] 01-16-2022 Episodic Residual codes; unclassified (3 sources) Other specified health status; Translations: [Other specified conditions influencing health status] 01-16-2022 Episodic Respiratory failure; insufficiency; arrest (adult) (9 sources) Acute respiratory failure; Translations: [Acute respiratory failure with hypoxia] 01-09-2022 Episodic Screening and history of mental health [...] [LOW BACK PAIN, UNSPECIFIED] Onset: 08-17-2021 Unclassified (2 sources) Chronic atrial fibrillation, unspecified; Translations: [Chronic atrial fibrillation, unspecified (Multi)] Onset: 02-16-2023 Urinary tract infections (4 sources) Urinary tract infection, site not specified; Translations: [UTI SITE NOT SPECIFIED] Onset: 05-13-2022 Episodic Varicose veins of lower extremity (20 sources) Varicose veins of lower extremity; Translations: [Varicose veins of left lower extremity with other complications] Episodic Past or Other Problems Problem Classification Problem Date Documented Da te Episodic/Chronic Other connective tissue disease (5 sources) Muscle wasting and atrophy, 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, unspecified site; Translations: [MUSCLE WASTING ATROPHY NEC UNS SITE] Onset: 08-17-2021 Episodic Unclassified (1 source) LOW BACK PAIN, UNSPECIFIED; Translations: [LOW BACK PAIN, UNSPECIFIED] Onset: 07-08-2022 Unclassified (1 source) Cough, unspecified type R05.9 Unclassified (1 source) Onset: 07-13-2023 07-13-2023 Results Test Name Value Interpretation Reference Range Facility Alanine aminotransferase [En zymatic activity/volume] in Serum or PlasmaOrdered By: Feliciano Ga on 09-12-2023 ALT [Catalytic activity/Vol] 18 U/L 7-52 [facility] Comment on above: Order Comment: Reaso n for Exam Hypothyroidism, unspecified;Hyperlipidemia Reason for Exam Hypothyroidism, unspecified Performed By: #### T 4F, LIPID, TSH3, CMP #### [facility] [address] [place] [address] [place] Albumin [Mass/volume] in Ser um or Plasma by Bromocresol green (BCG) dye binding methoOrdered By: Feliciano Ga on 09-12-2023 Albumin BCG dye [Mass/Vol] 4.1 g/dL 3.5-5.7 [facility] Alkaline phosphatase [Enzyma tic activity/volume] in Serum or PlasmaOrdered By: Feliciano Ga on 09-12-2023 ALP [Catalytic activity/Vol] 117 U/L High 34-104 [facility] Comment on above: Order Comment: Reaso n for Exam Hypothyroidism, unspecified;Hyperlipidemia Reason for Exam Hypothyroidism, unspecified Performed By: #### T 4F, LIPID, TSH3, CMP #### [facility] [address] [place] [id number] [place] Aspartate aminotransferase [ Enzymatic activity/volume] in Serum or PlasmaOrdered By: Feliciano Ga on 09-12-2023 AST [Catalytic activity/Vol] 29 U/L 13-39 [facility] Comment on above: Order Comment: Reaso n for Exam Hypothyroidism, unspecified;Hyperlipidemia Reason for Exam Hypothyroidism, unspecified Performed By: #### T 4F, LIPID, TSH3, CMP #### [facility] [address] [place] [address] Automated basophil %Ordered By: Feliciano Ga on 09-12-2023 Basophils/100 WBC (Bld) 0.8 % . [facility] Comment on above: Order Comment: Reaso n for Exam Hypothyroidism, unspecified;Hyperlipidemia Performed By: #### C BC #### [address] Automated basophil countOrde red By: Feliciano Ga on 09-12-2023 Basophils (Bld) [#/Vol] 0.0 10*3/uL 0.0-0.2 [facility] Comment on above: Order Comment: Reaso n for Exam Hypothyroidism, unspecified;Hyperlipidemia Result Comment: PERF ORMED BY: [place] [id number] PATHOLOGIST DIRECTOR OF SECURITIES AND REAL ESTATE JAYY SANTA M.D. Performed By: #### C BC #### [address] Automated blood monocyte cou ntOrdered By: Feliciano Ga on 09-12-2023 Monocytes (Bld) [#/Vol] 0.5 10*3/uL 0.0-0.8 [facility] Comment on above: Order Comment: Reaso n for Exam Hypothyroidism, unspecified;Hyperlipidemia Performed By: #### C BC #### [address] Automated eosinophil %Ordere d By: Feliciano Ga on 09-12-2023 Eosinophils/100 WBC (Bld) 10.7 % . [facility] Comment on above: Order Comment: Reaso n for Exam Hypothyroidism, unspecified;Hyperlipidemia Performed By: #### C BC #### [address] Automated eosinophil countOr dered By: Feliciano Ga on 09-12-2023 Eosinophils (Bld) [#/Vol] 0.5 10*3/uL High 0.0-0.45 [facility] Comment on above: Order Comment: Reaso n for Exam Hypothyroidism, unspecified;Hyperlipidemia Performed By: #### C BC #### [address] Automated monocyte %Ordered By: Feliciano Ga on 09-12-2023 Monocytes/100 WBC (Bld) 9.7 % . [facility] Comment on above: Order Comment: Reaso n for Exam Hypothyroidism, unspecified;Hyperlipidemia Performed By: #### C BC #### [address] Automated neutrophil %Ordere d By: Feliciano Ga on 09-12-2023 Neutrophils/100 WBC (Bld) 51.0 % . [facility] Comment on above: Order Comment: Reaso n for Exam Hypothyroidism, unspecified;Hyperlipidemia Performed By: #### C BC #### [address] Bilirubin.total [Mass/volume ] in Serum or PlasmaOrdered By: Feliciano Ga on 09-12-2023 Bilirubin [Mass/Vol] 0.7 mg/dL 0.3-1.0 [facility] Comment on above: Order Comment: Reaso n for Exam Hypothyroidism, unspecified;Hyperlipidemia Reason for Exam Hypothyroidism, unspecified Performed By: #### T 4F, LIPID, TSH3, CMP #### [address] Calcium [Mass/volume] in Ser um or PlasmaOrdered By: Feliciano Ga on 09-12-2023 Calcium [Mass/Vol] 9.7 mg/dL 8.6-10.3 [facility] Comment on above: Order Comment: Reaso n for Exam Hypothyroidism, unspecified;Hyperlipidemia Reason for Exam Hypothyroidism, unspecified Performed By: #### T 4F, LIPID, TSH3, CMP #### [address] Carbon dioxide, total [Moles /volume] in Serum or PlasmaOrdered By: Feliciano Ga on 09-12-2023 CO2 [Moles/Vol] 30.3 mmol/L 21.0-31.0 [facility] Comment on above: Order Comment: Reaso n for Exam Hypothyroidism, unspecified;Hyperlipidemia Reason for Exam Hypothyroidism, unspecified Performed By: #### T 4F, LIPID, TSH3, CMP #### [facility] [address] [place] [address] [place] Chloride [Moles/volume] in S sandor or PlasmaOrdered By: Feliciano Ga on 09-12-2023 Chloride [Moles/Vol] 105 mmol/L 98-107 [facility] Comment on above: Order Comment: Reaso n for Exam Hypothyroidism, unspecified;Hyperlipidemia Reason for Exam Hypothyroidism, unspecified Performed By: #### T 4F, LIPID, TSH3, CMP #### [facility] [address] [place] [id number] [place] Cholesterol [Mass/volume] in Serum or PlasmaOrdered By: Feliciano Ga on 09-12-2023 Cholesterol [Mass/Vol] 135 mg/dL Low 140-200 [facility] Comment on above: Chol less than 200 m g/dl low riskChol 201-239 mg/dl borderline riskChol 240 mg/dl and greater high risk Order Comment: Reaso n for Exam Hypothyroidism, unspecified;Hyperlipidemia Reason for Exam Hypothyroidism, unspecified Result Comment: Chol less than 200 mg/dl low risk Chol 201-239 mg/dl borderline risk Chol 240 mg/dl and greater high risk Performed By: #### T 4F, LIPID, TSH3, CMP #### [facility] [address] [place] [id number] [place] Cholesterol in LDL Calc [Mas s/Vol]Ordered By: Feliciano Ga on 09-12-2023 Cholesterol in LDL [Mass/Vol] 43 mg/dL 0-100 [facility] Comment on above: LDL ATP III CLASSIFI CATIONLDL less than 100 mg/dL OptimalLDL 100-129 mg/dL Near or above optimalLDL 130-159 mg/dL Borderline highLDL 160-189 mg/dL HighLDL greater than 189 mg/dL Very high Cholesterol in VLDL Calc [Ma ss/Vol]Ordered By: Feliciano Ga on 09-12-2023 Cholesterol in VLDL [Mass/Vol] 10 mg/dL [facility] Complete Blood Count Auto Di ffon 09-12-2023 Mean Corpuscular HGB Conc 33.1 g/dL Normal 32.5-35.6 [facility] Comment on above: Order Comment: Reaso n for Exam Hypothyroidism, unspecified;Hyperlipidemia Performed By: #### C BC #### [facility] [address] NRBC% 0.1 /100{WBC} Normal 0-0.5 [facility] Comment on above: Order Comment: Reaso n for Exam Hypothyroidism, unspecified;Hyperlipidemia Performed By: #### C BC #### [facility] [address] Comprehensive Metabolic Pane haley 09-12-2023 Albumin [Mass/Vol] 4.1 g/dL Normal 3.5-5.7 [facility] Comment on above: Order Comment: Reaso n for Exam Hypothyroidism, unspecified;Hyperlipidemia Reason for Exam Hypothyroidism, unspecified Performed By: #### T 4F, LIPID, TSH3, CMP #### [facility] [address] [place] [address] GFR/1.73 sq M.predicted MDRD (S/P/Bld) [Vol rate/Area] mL/min/{1.73_m2} Normal [facility] Comment on above: Order Comment: Reaso n for Exam Hypothyroidism, unspecified;Hyperlipidemia Reason for Exam Hypothyroidism, unspecified Performed By: #### T 4F, LIPID, TSH3, CMP #### [facility] [address] [place] [address] Creatinine [Mass/volume] in Serum or PlasmaOrdered By: Feliciano Ga on 09-12-2023 Creatinine [Mass/Vol] 1.19 mg/dL 0.70-1.30 [facility] Comment on above: Order Comment: Reaso n for Exam Hypothyroidism, unspecified;Hyperlipidemia Reason for Exam Hypothyroidism, unspecified Performed By: #### T 4F, LIPID, TSH3, CMP #### [facility] [address] [place], [place] [id number] [facility] Erythrocyte distribution wid th [Ratio] by Automated countOrdered By: Feliciano Ga on 09-12-2023 Erythrocyte distribution width (RBC) [Ratio] 13.9 % 12.0-14.8 [facility] Comment on above: Order Comment: Reaso n for Exam Hypothyroidism, unspecified;Hyperlipidemia Performed By: #### C BC #### [facility] [address] Erythrocytes [#/volume] in B lood by Automated countOrdered By: Feliciano Ga on 09-12-2023 RBC (Bld) [#/Vol] 3.73 10*6/uL Low 3.90-5.60 [facility] Comment on above: Order Comment: Reaso n for Exam Hypothyroidism, unspecified;Hyperlipidemia Performed By: #### C BC #### [address] Glucose [Mass/volume] in Ser um or PlasmaOrdered By: Feliciano Ga on 09-12-2023 Glucose [Mass/Vol] 85 mg/dL 70-100 [facility] Comment on above: ADA recommended refe rence rangeRandom Glucose Reference Range is dependent on time and content of last meal. Glucose of more than 200 mg/dL in a nonstressed, ambulatory subject supports the diagnosis of Diabetes Mellitus. Order Comment: Reaso n for Exam Hypothyroidism, unspecified;Hyperlipidemia Reason for Exam Hypothyroidism, unspecified Result Comment: [place] om Glucose Reference Range is dependent on time and content of last meal. Glucose of more than 200 mg/dL in a nonstressed, ambulatory subject supports the diagnosis of Diabetes Mellitus. ADA recommended reference range Performed By: #### T 4F, LIPID, TSH3, CMP #### [facility] [address] [place] [address] [place] Hematocrit [Volume Fraction] of Blood by Automated countOrdered By: Feliciano Ga on 09-12-2023 Hematocrit (Bld) [Volume fraction] 39.6 % 38.8-50.0 [facility] Comment on above: Order Comment: Reaso n for Exam Hypothyroidism, unspecified;Hyperlipidemia Performed By: #### C BC #### [place] [address] [place] Hemoglobin [Mass/volume] in BloodOrdered By: Feliciano Ga on 09-12-2023 Hemoglobin (Bld) [Mass/Vol] 13.1 g/dL 13.0-17.0 [facility] Comment on above: Order Comment: Reaso n for Exam Hypothyroidism, unspecified;Hyperlipidemia Performed By: #### C BC #### [facility] [address] [place] [id number] [facility] Leukocytes [#/volume] correc fern for nucleated erythrocytes in Blood by Automated counOrdered By: Feliciano Ga on 09-12-2023 WBC corrected for nucl RBC Auto (Bld) [#/Vol] 5.0 10*3/uL 4.1-10.5 [facility] Leukocytes [#/volume] in Blo od by Automated countOrdered By: Feliciano Ga on 09-12-2023 WBC (Bld) [#/Vol] 5.0 10*3/uL 4.1-10.5 [facility] Comment on above: Order Comment: Reaso n for Exam Hypothyroidism, unspecified;Hyperlipidemia Performed By: #### C BC #### [facility] [address] [place] [id number] [facility] Lipid Panelon 09-12-2023 LDL Cholesterol,Calculated 43 mg/dL Normal 0-100 [facility] Comment on above: Order Comment: Reaso n for Exam Hypothyroidism, unspecified;Hyperlipidemia Reason for Exam Hypothyroidism, unspecified Result Comment: LDL ATP III CLASSIFICATION LDL less than 100 mg/dL Optimal LDL 100-129 mg/dL Near or above optimal LDL 130-159 mg/dL Borderline high LDL 160-189 mg/dL High LDL greater than 189 mg/dL Very high Performed By: #### T 4F, LIPID, TSH3, CMP #### [facility] [address] [place] [id number] [facility] Triglyceride w/Reflex 53 mg/dL Normal 0-149 [facility] Comment on above: Order Comment: Reaso n for Exam Hypothyroidism, unspecified;Hyperlipidemia Reason for Exam Hypothyroidism, unspecified Result Comment: TRIG ATP III CLASSIFICATION TRIG less than 150 mg/dL Normal TRIG 150-199 mg/dL Borderline high TRIG 200-500 mg/dL High TRIG greater than 500 mg/dL Very high Standard traceable to the Center for Disease Conrtrol and Prevention (CDC) test method. Performed By: #### T 4F, LIPID, TSH3, CMP #### [facility] [address] VLDL CHOLESTEROL 10 mg/dL Normal [facility] Comment on above: Order Comment: Reaso n for Exam Hypothyroidism, unspecified;Hyperlipidemia Reason for Exam Hypothyroidism, unspecified Performed By: #### T 4F, LIPID, TSH3, CMP #### [address] Lymphocytes [#/volume] in Bl ood by Automated countOrdered By: Feliciano Ga on 09-12-2023 Lymphocytes (Bld) [#/Vol] 1.4 10*3/uL 1.00-4.8 [facility] Comment on above: Order Comment: Reaso n for Exam Hypothyroidism, unspecified;Hyperlipidemia Performed By: #### C BC #### [address] Lymphocytes/100 leukocytes i n Blood by Automated countOrdered By: Feliciano Ga on 09-12-2023 Lymphocytes/100 WBC (Bld) 27.8 % . [facility] Comment on above: Order Comment: Reaso n for Exam Hypothyroidism, unspecified;Hyperlipidemia Performed By: #### C BC #### [address] MCH [Entitic mass] by Automa fern countOrdered By: Feliciano Ga on 09-12-2023 MCH (RBC) [Entitic mass] 35.2 pg 27.5-35.2 [facility] Comment on above: Order Comment: Reaso n for Exam Hypothyroidism, unspecified;Hyperlipidemia Performed By: #### C BC #### [address] MCHC Auto (RBC) [Mass/Vol]Or dered By: Feliciano Ga on 09-12-2023 MCHC (RBC) [Mass/Vol] 33.1 g/dL 32.5-35.6 [facility] MCV [Entitic volume] by Auto mated countOrdered By: Feliciano Ga on 09-12-2023 MCV (RBC) [Entitic vol] 106.3 fL High 83.5-101 [facility] Comment on above: Order Comment: Reaso n for Exam Hypothyroidism, unspecified;Hyperlipidemia Performed By: #### C BC #### [facility] [address] [place] [address] Neutrophils [#/volume] in Bl ood by Automated countOrdered By: Feliciano Ga on 09-12-2023 Neutrophils (Bld) [#/Vol] 2.6 10*3/uL 1.8-7.7 [facility] Comment on above: Order Comment: Reaso n for Exam Hypothyroidism, unspecified;Hyperlipidemia Performed By: #### C BC #### [facility] [address] [place] [address] No Panel InformationOrdered By: Feliciano Ga on 09-12-2023 Estimated GFR (CKD-EPI) > 60.0 mL/Min [facility] Creatinine Clearance (Chem N/A [facility] Nucleated erythrocytes [Pres ence] in Blood by Automated countOrdered By: Feliciano Ga on 09-12-2023 Nucleated RBC Auto Ql (Bld) 0.1 /100{WBC} 0-0.5 [facility] PSA Screen (Yearly Only)on 0 09-12-2023 PSA Screen (Yearly Only) 2.430 ng/mL Normal 0.000-4.00 0 [facility] Comment on above: Order Comment: Reaso n for Exam Hypothyroidism, unspecified;Hyperlipidemia Reason for Exam Hypothyroidism, unspecified Result Comment: Seri al tumor marker results determined by assays using different manufacturers or methods may not be comparable. [facility] lace machine operator and method: kubo financieroEL DXI, CHEMILUMINESCENT IMMUNOASSAY. PERFORMED BY: [place] [id number] PATHOLOGIST DIRECTOR OF SECURITIES AND REAL ESTATE JAYY SANTA M.D. Performed By: #### T 4F, LIPID, TSH3, CMP #### [facility] [address] [place] [address] Platelet mean volume [Entiti c volume] in Blood by Automated countOrdered By: Feliciano Ga on 09-12-2023 Platelet mean volume (Bld) [Entitic vol] 8.6 fL 6.6-10.1 [facility] Comment on above: Order Comment: Reaso n for Exam Hypothyroidism, unspecified;Hyperlipidemia Performed By: #### C BC #### [facility] [address] Platelets [#/volume] in Bloo d by Automated countOrdered By: Feliciano Ga on 09-12-2023 Platelets (Bld) [#/Vol] 163 10*3/uL 150-450 [facility] Comment on above: Order Comment: Reaso n for Exam Hypothyroidism, unspecified;Hyperlipidemia Performed By: #### C BC #### [facility] [address] Potassium [Moles/volume] in Serum or PlasmaOrdered By: Feliciano Ga on 09-12-2023 Potassium [Moles/Vol] 4.0 mmol/L 3.5-5.1 [facility] Comment on above: Order Comment: Reaso n for Exam Hypothyroidism, unspecified;Hyperlipidemia Reason for Exam Hypothyroidism, unspecified Performed By: #### T 4F, LIPID, TSH3, CMP #### [facility] [address] Prostate specific Ag [Mass/v olume] in Serum or PlasmaOrdered By: Feliciano Ga on 09-12-2023 Prostate specific Ag [Mass/Vol] 2.430 ng/mL 0.000-4.00 0 [facility] Comment on above: Serial tumor marker results determined by assays using different manufacturers or methods may not be comparable.[facility] lace machine operator and method:CYNTHIA TUUN HEALTHEL DXI, CHEMILUMINESCENT IMMUNOASSAY. Protein [Mass/volume] in Ser um or PlasmaOrdered By: Feliciano Ga on 09-12-2023 Protein [Mass/Vol] 6.4 g/dL 6.4-8.9 [facility] Comment on above: Order Comment: Reaso n for Exam Hypothyroidism, unspecified;Hyperlipidemia Reason for Exam Hypothyroidism, unspecified Performed By: #### T 4F, LIPID, TSH3, CMP #### [facility] [address] Serum globulin measurement b y calculation (mass/volume)Ordered By: Feliciano Ga on 09-12-2023 Globulin (S) [Mass/Vol] 2.3 g/dL [facility] Comment on above: Order Comment: Reaso n for Exam Hypothyroidism, unspecified;Hyperlipidemia Reason for Exam Hypothyroidism, unspecified Performed By: #### T 4F, LIPID, TSH3, CMP #### [facility] [address] Serum or plasma albumin/glob ulin mass ratioOrdered By: Feliciano Ga on 09-12-2023 Albumin/Globulin [Mass ratio] 1.8 {ratio} [facility] Comment on above: Order Comment: Reaso n for Exam Hypothyroidism, unspecified;Hyperlipidemia Reason for Exam Hypothyroidism, unspecified Performed By: #### T 4F, LIPID, TSH3, CMP #### [facility] [address] [place] [address] Serum or plasma anion gap de terminationOrdered By: Feliciano Ga on 09-12-2023 Anion gap [Moles/Vol] 9.7 mmol/L 6.0-15.0 [facility] Comment on above: Order Comment: Reaso n for Exam Hypothyroidism, unspecified;Hyperlipidemia Reason for Exam Hypothyroidism, unspecified Performed By: #### T 4F, LIPID, TSH3, CMP #### [facility] [address] Serum or plasma high density lipoprotein (HDL) cholesterol measurementOrdered By: Feliciano Ga on 09-12-2023 Cholesterol in HDL [Mass/Vol] 81 mg/dL 23-92 [facility] Comment on above: HDL CHOL ATP-III CLA SSIFICATION Cardiovascular RiskHDL > or equal to 60 mg/dL LOWHDL < 40 mg/dL HIGH Order Comment: Reaso n for Exam Hypothyroidism, unspecified;Hyperlipidemia Reason for Exam Hypothyroidism, unspecified Result Comment: HDL CHOL ATP-III CLASSIFICATION Cardiovascular Risk HDL > or equal to 60 mg/dL LOW HDL < 40 mg/dL HIGH Performed By: #### T 4F, LIPID, TSH3, CMP #### [facility] [address] Serum or plasma total choles terol/high density lipoprotein (HDL) cholesterol mass ratOrdered By: Feliciano Ga on 09-12-2023 Cholesterol.total/Chol esterol in HDL [Mass ratio] 1.7 {ratio} <5.0 [facility] Comment on above: Order Comment: Reaso n for Exam Hypothyroidism, unspecified;Hyperlipidemia Reason for Exam Hypothyroidism, unspecified Performed By: #### T 4F, LIPID, TSH3, CMP #### [facility] [address] [place] [address] Sodium [Moles/volume] in Ser um or PlasmaOrdered By: Feliciano Ga on 09-12-2023 Sodium [Moles/Vol] 141 mmol/L 136-145 [facility] Comment on above: Order Comment: Reaso n for Exam Hypothyroidism, unspecified;Hyperlipidemia Reason for Exam Hypothyroidism, unspecified Performed By: #### T 4F, LIPID, TSH3, CMP #### [facility] [address] [place] [address] Thyrotropin [Units/volume] i n Serum or PlasmaOrdered By: Feliciano Ga on 09-12-2023 TSH Qn 0.19 m[IU]/L Low 0.45-5.33 [facility] Comment on above: Order Comment: Reaso n for Exam Hypothyroidism, unspecified;Hyperlipidemia Reason for Exam Hypothyroidism, unspecified Result Comment: PERF ORMED BY: [place] [id number] PATHOLOGIST DIRECTOR OF SECURITIES AND REAL ESTATE JAYY SANTA M.D. Performed By: #### T 4F, LIPID, TSH3, CMP #### [facility] [address] [place] [address] Thyroxine (T4) free [Mass/vo lume] in Serum or PlasmaOrdered By: Feliciano Ga on 09-12-2023 Free T4 [Mass/Vol] 1.24 ng/dL High 0.61-1.12 [facility] Comment on above: Order Comment: Reaso n for Exam Hypothyroidism, unspecified;Hyperlipidemia Reason for Exam Hypothyroidism, unspecified Performed By: #### T 4F, LIPID, TSH3, CMP #### [facility] [address] [place] [address] [place] Triglyceride [Mass/volume] i n Serum or PlasmaOrdered By: Feliciano Ga on 07-08-2024 Triglyceride [Mass/Vol] 53 mg/dL 0-149 [facility] Comment on above: TRIG ATP III CLASSIF ICATIONTRIG less than 150 mg/dL NormalTRIG 150-199 mg/dL Borderline highTRIG 200-500 mg/dL High TRIG greater than 500 mg/dL Very highStandard traceable to the Center for Disease Conrtrol and Prevention (CDC) test method. Urea nitrogen [Mass/volume] in Serum or PlasmaOrdered By: Feliciano Ga on 09-12-2023 Urea nitrogen [Mass/Vol] 26 mg/dL High 7- [facility] Comment on above: Order Comment: Reaso n for Exam Hypothyroidism, unspecified;Hyperlipidemia Reason for Exam Hypothyroidism, unspecified Performed By: #### T 4F, LIPID, TSH3, CMP #### [facility] [address] [place] [address] Alanine aminotransferase [En zymatic activity/volume] in Serum or PlasmaOrdered By: Bhupinder Mcintyre on 07-19-2023 ALT [Catalytic activity/Vol] 37 U/L 7-52 [facility] Comment on above: Performed By: #### A ST, BMP, ALT, LIPID, BNP #### [facility] [address] [place] [address] Aspartate aminotransferase [ Enzymatic activity/volume] in Serum or PlasmaOrdered By: Bhupinder Mcintyre on 07-19-2023 AST [Catalytic activity/Vol] 66 U/L High 13-39 [facility] Comment on above: Performed By: #### A ST, BMP, ALT, LIPID, BNP #### [address] BNP ser/plasOrdered By: Bhupinder herron on 07-19-2023 Natriuretic peptide B (Bld) [Mass/Vol] 347.0 pg/mL High 5-100 [facility] Comment on above: Result Comment: PERF ORMED BY: [place] [id number] PATHOLOGIST DIRECTOR OF SECURITIES AND REAL ESTATE JAYY SANTA M.D. Performed By: #### A ST, BMP, ALT, LIPID, BNP #### [address] Basic Metabolic Panelon 05-1 4-2024 GFR/1.73 sq M.predicted MDRD (S/P/Bld) [Vol rate/Area] mL/min/{1.73_m2} Normal [facility] Comment on above: Performed By: #### A ST, BMP, ALT, LIPID, BNP #### [facility] [address] [place] [address] [place] Calcium [Mass/volume] in Ser um or PlasmaOrdered By: Bhupinder Mcintyre on 07-19-2023 Calcium [Mass/Vol] 9.8 mg/dL 8.6-10.3 [facility] Comment on above: Performed By: #### A ST, BMP, ALT, LIPID, BNP #### [facility] [address] [place] [address] [place] Carbon dioxide, total [Moles /volume] in Serum or PlasmaOrdered By: Bhupinder Mcintyre on 07-19-2023 CO2 [Moles/Vol] 27.1 mmol/L 21.0-31.0 [facility] Comment on above: Performed By: #### A ST, BMP, ALT, LIPID, BNP #### [facility] [address] [place] [address] [place] Chloride [Moles/volume] in S sandor or PlasmaOrdered By: Bhupinder Mcintyre on 07-19-2023 Chloride [Moles/Vol] 104 mmol/L 98-107 [facility] Comment on above: Performed By: #### A ST, BMP, ALT, LIPID, BNP #### [facility] [address] [place] [address] [place] Cholesterol [Mass/volume] in Serum or PlasmaOrdered By: Bhupinder Mcintyre on 07-19-2023 Cholesterol [Mass/Vol] 152 mg/dL 140-200 [facility] Comment on above: Chol less than 200 m g/dl low riskChol 201-239 mg/dl borderline riskChol 240 mg/dl and greater high risk Result Comment: Chol less than 200 mg/dl low risk Chol 201-239 mg/dl borderline risk Chol 240 mg/dl and greater high risk Performed By: #### A ST, BMP, ALT, LIPID, BNP #### [facility] [address] [place] [id number] [facility] Cholesterol in LDL Calc [Mas s/Vol]Ordered By: Bhupinder Mcintyre on 07-19-2023 Cholesterol in LDL [Mass/Vol] 49 mg/dL 0-100 [facility] Comment on above: LDL ATP III CLASSIFI CATIONLDL less than 100 mg/dL OptimalLDL 100-129 mg/dL Near or above optimalLDL 130-159 mg/dL Borderline highLDL 160-189 mg/dL HighLDL greater than 189 mg/dL Very high Cholesterol in VLDL Calc [Ma ss/Vol]Ordered By: Bhupinder Mcintyre on 07-19-2023 Cholesterol in VLDL [Mass/Vol] 17 mg/dL [facility] Creatinine [Mass/volume] in Serum or PlasmaOrdered By: Bhupinder Mcintyre on 07-19-2023 Creatinine [Mass/Vol] 1.14 mg/dL 0.70-1.30 [facility] Comment on above: Performed By: #### A ST, BMP, ALT, LIPID, BNP #### [facility] [address] [place] [id number] [facility] Glucose [Mass/volume] in Ser um or PlasmaOrdered By: Bhupinder Mcintyre on 07-19-2023 Glucose [Mass/Vol] 83 mg/dL 70-100 [facility] Comment on above: ADA recommended refe rence rangeRandom Glucose Reference Range is dependent on time and content of last meal. Glucose of more than 200 mg/dL in a nonstressed, ambulatory subject supports the diagnosis of Diabetes Mellitus. Result Comment: [place] [facility] Glucose Reference Range is dependent on time and content of last meal. Glucose of more than 200 mg/dL in a nonstressed, ambulatory subject supports the diagnosis of Diabetes Mellitus. ADA recommended reference range Performed By: #### A ST, BMP, ALT, LIPID, BNP #### [facility] [address] [place] [id number] [facility] Lipid Panelon 07-19-2023 LDL Cholesterol,Calculated 49 mg/dL Normal 0-100 [facility] Comment on above: Result Comment: LDL ATP III CLASSIFICATION LDL less than 100 mg/dL Optimal LDL 100-129 mg/dL Near or above optimal LDL 130-159 mg/dL Borderline high LDL 160-189 mg/dL High LDL greater than 189 mg/dL Very high Performed By: #### A ST, BMP, ALT, LIPID, BNP #### [address] Triglyceride w/Reflex 85 mg/dL Normal 0-149 [facility] Comment on above: Result Comment: TRIG ATP III CLASSIFICATION TRIG less than 150 mg/dL Normal TRIG 150-199 mg/dL Borderline high TRIG 200-500 mg/dL High TRIG greater than 500 mg/dL Very high Standard traceable to the Center for Disease Conrtrol and Prevention (CDC) test method. Performed By: #### A ST, BMP, ALT, LIPID, BNP #### [address] VLDL CHOLESTEROL 17 mg/dL Normal [facility] Comment on above: Performed By: #### A ST, BMP, ALT, LIPID, BNP #### [address] No Panel InformationOrdered By: Bhupinder Mcintyre on 07-19-2023 Estimated GFR (CKD-EPI) > 60.0 mL/Min [facility] Creatinine Clearance (Chem N/A [facility] Potassium [Moles/volume] in Serum or PlasmaOrdered By: Bhupinder Mcintyre on 07-19-2023 Potassium [Moles/Vol] 4.2 mmol/L 3.5-5.1 [facility] Comment on above: Performed By: #### A ST, BMP, ALT, LIPID, BNP #### [address] Serum or plasma anion gap de terminationOrdered By: Bhupinder Mcintyre on 07-19-2023 Anion gap [Moles/Vol] 14.1 mmol/L 6.0-15.0 [facility] Comment on above: Performed By: #### A ST, BMP, ALT, LIPID, BNP #### [address] Serum or plasma high density lipoprotein (HDL) cholesterol measurementOrdered By: Bhupinder Mcintyre on 07-19-2023 Cholesterol in HDL [Mass/Vol] 86 mg/dL 23- [facility] Comment on above: HDL CHOL ATP-III CLA SSIFICATION Cardiovascular RiskHDL > or equal to 60 mg/dL LOWHDL < 40 mg/dL HIGH Result Comment: HDL CHOL ATP-III CLASSIFICATION Cardiovascular Risk HDL > or equal to 60 mg/dL LOW HDL < 40 mg/dL HIGH Performed By: #### A ST, BMP, ALT, LIPID, BNP #### [address] Serum or plasma total choles terol/high density lipoprotein (HDL) cholesterol mass ratOrdered By: Bhupinder Mcintyre on 07-19-2023 Cholesterol.total/Chol esterol in HDL [Mass ratio] 1.8 {ratio} <5.0 [facility] Comment on above: Result Comment: PERF ORMED BY: [place] [address] PATHOLOGIST DIRECTOR OF SECURITIES AND REAL ESTATE JAYY SANTA M.D. Performed By: #### A ST, BMP, ALT, LIPID, BNP #### [address] Sodium [Moles/volume] in Ser um or PlasmaOrdered By: Bhupinder Mcintyre on 07-19-2023 Sodium [Moles/Vol] 141 mmol/L 136-145 [facility] Comment on above: Performed By: #### A ST, BMP, ALT, LIPID, BNP #### [address] Triglyceride [Mass/volume] i n Serum or PlasmaOrdered By: Bhupinder Mcintyre on 07-19-2023 Triglyceride [Mass/Vol] 85 mg/dL 0-149 [facility] Comment on above: TRIG ATP III CLASSIF ICATIONTRIG less than 150 mg/dL NormalTRIG 150-199 mg/dL Borderline highTRIG 200-500 mg/dL High TRIG greater than 500 mg/dL Very highStandard traceable to the Center for Disease Conrtrol and Prevention (CDC) test method. Urea nitrogen [Mass/volume] in Serum or PlasmaOrdered By: Bhupinder Mcintyre on 07-19-2023 Urea nitrogen [Mass/Vol] 22 mg/dL 7-25 [facility] Comment on above: Performed By: #### A ST, BMP, ALT, LIPID, BNP #### [facility] [address] [place] [id number] [facility] Alanine aminotransferase [En zymatic activity/volume] in Serum or PlasmaOrdered By: Feliciano Ga on 09-08-2022 ALT [Catalytic activity/Vol] 31 U/L 7-52 [facility] Albumin [Mass/volume] in Ser um or Plasma by Bromocresol green (BCG) dye binding methoOrdered By: Feliciano Ga on 09-08-2022 Albumin BCG dye [Mass/Vol] 4.1 g/dL 3.5-5.7 [facility] Alkaline phosphatase [Enzyma tic activity/volume] in Serum or PlasmaOrdered By: Feliciano Ga on 09-08-2022 ALP [Catalytic activity/Vol] 124 U/L 34-104 [facility] Aspartate aminotransferase [ Enzymatic activity/volume] in Serum or PlasmaOrdered By: Feliciano Ga on 09-08-2022 AST [Catalytic activity/Vol] 47 U/L 13-39 [facility] Basophils Auto (Bld) [#/Vol] Ordered By: Feliicano Ga on 09-08-2022 Basophils (Bld) [#/Vol] 0.0 10*3/uL 0.0-0.2 [facility] Basophils/100 WBC Auto (Bld) Ordered By: Feliciano Ga on 09-08-2022 Basophils/100 WBC (Bld) 1.0 % . [facility] Bilirubin.total [Mass/volume ] in Serum or PlasmaOrdered By: Feliciano Ga on 09-08-2022 Bilirubin [Mass/Vol] 0.7 mg/dL 0.3-1.0 [facility] Calcium [Mass/volume] in Ser um or PlasmaOrdered By: Feliciano Ga on 09-08-2022 Calcium [Mass/Vol] 9.5 mg/dL 8.6-10.3 [facility] Carbon dioxide, total [Moles /volume] in Serum or PlasmaOrdered By: Feliciano Ga on 09-08-2022 CO2 [Moles/Vol] 30.7 mmol/L 21.0-31.0 [facility] Chloride [Moles/volume] in S sandor or PlasmaOrdered By: Feliciano Ga on 09-08-2022 Chloride [Moles/Vol] 107 mmol/L 98-107 [facility] Cholesterol [Mass/volume] in Serum or PlasmaOrdered By: Feliciano Ga on 09-08-2022 Cholesterol [Mass/Vol] 124 mg/dL 140-200 [facility] Comment on above: Chol less than 200 m g/dl low riskChol 201-239 mg/dl borderline riskChol 240 mg/dl and greater high risk Cholesterol in LDL Calc [Mas s/Vol]Ordered By: Feliciano Ga on 09-08-2022 Cholesterol in LDL [Mass/Vol] 44 mg/dL 0-100 [facility] Comment on above: LDL ATP III CLASSIFI CATIONLDL less than 100 mg/dL OptimalLDL 100-129 mg/dL Near or above optimalLDL 130-159 mg/dL Borderline highLDL 160-189 mg/dL HighLDL greater than 189 mg/dL Very high Cholesterol in VLDL Calc [Ma ss/Vol]Ordered By: Feliciano Ga on 09-08-2022 Cholesterol in VLDL [Mass/Vol] 13 mg/dL [facility] Creatinine [Mass/volume] in Serum or PlasmaOrdered By: Feliciano Ga on 09-08-2022 Creatinine [Mass/Vol] 1.18 mg/dL 0.70-1.30 [facility] Eosinophils Auto (Bld) [#/Vo l]Ordered By: Feliciano Ga on 09-08-2022 Eosinophils (Bld) [#/Vol] 0.8 10*3/uL 0.0-0.45 [facility] Eosinophils/100 WBC Auto (Bl d)Ordered By: Feliciano Ga on 09-08-2022 Eosinophils/100 WBC (Bld) 16.6 % . [facility] Erythrocyte distribution wid th Auto (RBC) [Ratio]Ordered By: Feliciano Ga on 09-08-2022 Erythrocyte distribution width (RBC) [Ratio] 14.9 % 12.0-14.8 [facility] Globulin Calc (S) [Mass/Vol] Ordered By: Feliciano Ga on 09-08-2022 Globulin (S) [Mass/Vol] 2.2 g/dL [facility] Glucose [Mass/volume] in Ser um or PlasmaOrdered By: Feliciano Ga on 09-08-2022 Glucose [Mass/Vol] 83 mg/dL 70-100 [facility] Comment on above: ADA recommended refe rence rangeRandom Glucose Reference Range is dependent on time and content of last meal. Glucose of more than 200 mg/dL in a nonstressed, ambulatory subject supports the diagnosis of Diabetes Mellitus. Hematocrit Auto (Bld) [Volum e fraction]Ordered By: Feliciano Ga on 09-08-2022 Hematocrit (Bld) [Volume fraction] 37.1 % 38.8-50.0 [facility] Hemoglobin [Mass/volume] in BloodOrdered By: Feliciano Ga on 09-08-2022 Hemoglobin (Bld) [Mass/Vol] 12.5 g/dL 13.0-17.0 [facility] Leukocytes [#/volume] correc fern for nucleated erythrocytes in Blood by Automated counOrdered By: Feliciano Ga on 09-08-2022 WBC corrected for nucl RBC Auto (Bld) [#/Vol] 4.7 10*3/uL 4.1-10.5 [facility] Lymphocytes Auto (Bld) [#/Vo l]Ordered By: Feliciano Ga on 09-08-2022 Lymphocytes (Bld) [#/Vol] 1.3 10*3/uL 1.00-4.8 [facility] Lymphocytes/100 WBC Auto (Bl d)Ordered By: Feliciano Ga on 09-08-2022 Lymphocytes/100 WBC (Bld) 27.0 % . [facility] MCH Auto (RBC) [Entitic mass ]Ordered By: Feliciano Ga on 09-08-2022 MCH (RBC) [Entitic mass] 33.5 pg 27.5-35.2 [facility] MCHC Auto (RBC) [Mass/Vol]Or dered By: Feliciano Ga on 09-08-2022 MCHC (RBC) [Mass/Vol] 33.6 g/dL 32.5-35.6 [facility] MCV Auto (RBC) [Entitic vol] Ordered By: Feliciano Ga on 09-08-2022 MCV (RBC) [Entitic vol] 99.7 fL 83.5-101 [facility] Monocytes Auto (Bld) [#/Vol] Ordered By: Feliciano Ga on 09-08-2022 Monocytes (Bld) [#/Vol] 0.3 10*3/uL 0.0-0.8 [facility] Monocytes/100 WBC Auto (Bld) Ordered By: Feliciano Ga on 09-08-2022 Monocytes/100 WBC (Bld) 7.2 % . [facility] Natriuretic peptide B [Mass/ Vol]Ordered By: Bhupinder Mcintyre on 09-08-2022 Natriuretic peptide B (Bld) [Mass/Vol] 123.0 pg/mL 5-100 [facility] Neutrophils Auto (Bld) [#/Vo l]Ordered By: Feliciano Ga on 09-08-2022 Neutrophils (Bld) [#/Vol] 2.2 10*3/uL 1.8-7.7 [facility] Neutrophils/100 WBC Auto (Bl d)Ordered By: Feliciano Ga on 09-08-2022 Neutrophils/100 WBC (Bld) 48.2 % . [facility] No Panel Informationon 09-08 123.0\S\123.0 above high threshold 5-100 -[facility] lauro 250 DO Work Phone: Comment on above: PERFORMED BY:[place] [address] [place] [place], [place] [id number] MEDICAL DIRECTORJAYY SANTA M.D. No Panel InformationOrdered By: Feliciano Ga on 09-08-2022 Estimated GFR (CKD-EPI) > 60.0 mL/Min [facility] Creatinine Clearance (Chem N/A [facility] Nucleated erythrocytes [Pres ence] in Blood by Automated countOrdered By: Feliciano Ga on 09-08-2022 Nucleated RBC Auto Ql (Bld) 0.2 /100{WBC} 0-0.5 [facility] Platelet mean volume Auto (B ld) [Entitic vol]Ordered By: Feliciano Ga on 09-08-2022 Platelet mean volume (Bld) [Entitic vol] 8.8 fL 6.6-10.1 [facility] Platelets Auto (Bld) [#/Vol] Ordered By: Feliciano Ga on 09-08-2022 Platelets (Bld) [#/Vol] 155 10*3/uL 150-450 [facility] Potassium [Moles/volume] in Serum or PlasmaOrdered By: Feliciano Ga on 09-08-2022 Potassium [Moles/Vol] 4.0 mmol/L 3.5-5.1 [facility] Prostate specific Ag [Mass/v olume] in Serum or PlasmaOrdered By: Feliciano Ga on 09-08-2022 Prostate specific Ag [Mass/Vol] 2.140 ng/mL 0.000-4.00 0 [facility] Protein [Mass/volume] in Ser um or PlasmaOrdered By: Feliciano Ga on 09-08-2022 Protein [Mass/Vol] 6.3 g/dL 6.4-8.9 [facility] RBC Auto (Bld) [#/Vol]Ordere d By: Feliciano Ga on 09-08-2022 RBC (Bld) [#/Vol] 3.73 10*6/uL 3.90-5.60 [facility] Serum or plasma albumin/glob ulin mass ratioOrdered By: Feliciano Ga on 09-08-2022 Albumin/Globulin [Mass ratio] 1.9 {ratio} [facility] Serum or plasma anion gap de terminationOrdered By: Feliciano Ga on 09-08-2022 Anion gap [Moles/Vol] 8.3 mmol/L 6.0-15.0 [facility] Serum or plasma high density lipoprotein (HDL) cholesterol measurementOrdered By: Feliciano Ga on 09-08-2022 Cholesterol in HDL [Mass/Vol] 67 mg/dL 23-92 [facility] Comment on above: HDL CHOL ATP-III CLA SSIFICATION Cardiovascular RiskHDL > or equal to 60 mg/dL LOWHDL < 40 mg/dL HIGH Serum or plasma total choles terol/high density lipoprotein (HDL) cholesterol mass ratOrdered By: Feliciano Ga on 09-08-2022 Cholesterol.total/Chol esterol in HDL [Mass ratio] 1.9 {ratio} <5.0 [facility] Sodium [Moles/volume] in Ser um or PlasmaOrdered By: Feliciano Ga on 09-08-2022 Sodium [Moles/Vol] 142 mmol/L 136-145 [facility] Thyrotropin [Units/volume] i n Serum or PlasmaOrdered By: Feliciano Ga on 09-08-2022 TSH Qn 0.46 m[IU]/L 0.45-5.33 [facility] Thyroxine (T4) free [Mass/vo lume] in Serum or PlasmaOrdered By: Feliciano Ga on 09-08-2022 Free T4 [Mass/Vol] 1.28 ng/dL 0.61-1.12 [facility] Triglyceride [Mass/volume] i n Serum or PlasmaOrdered By: Feliciano Ga on 09-08-2022 Triglyceride [Mass/Vol] 66 mg/dL 0-149 [facility] Comment on above: TRIG ATP III CLASSIF ICATIONTRIG less than 150 mg/dL NormalTRIG 150-199 mg/dL Borderline highTRIG 200-500 mg/dL High TRIG greater than 500 mg/dL Very highStandard traceable to the Center for Disease Conrtrol and Prevention (CDC) test method. Urea nitrogen [Mass/volume] in Serum or PlasmaOrdered By: Feliciano Ga on 09-08-2022 Urea nitrogen [Mass/Vol] 22 mg/dL 7-25 [facility] WBC Auto (Bld) [#/Vol]Ordere d By: Feliciano Ga on 09-08-2022 WBC (Bld) [#/Vol] 4.7 10*3/uL 4.1-10.5 [facility] Office Visit (Cardiology)on 07-07-2022 Follow-up visit Diagnoses/Problems [...] carvedilol and digoxin were discontinued by Dr. Urena NYHA classification is class II/C Recommendations, follow-up in 1 year on same therapy Surgical History Problems History of Back surgery History of Cardiac catheterization History of Complete colonoscopy [facility] History of Epidural steroid injection History [...] other sy (more content not included)... Normal [employer] Tobacco Screening.on Tobacco use status CPHS b) No [facility] lauro 250 DO Work Phone: [place] [...] RONALD ISRAEL Date: 2022-05-13 09:51 Normal [facility] Cardiovasc Arrhythmia Result son 03-15-2022 Cardiovasc Arrhythmia Results Reason For Visit Reason for Visit: Holter Monitor: IRINEO is here for the application of a 24 hour Holter monitor. Ordering Physician: Enedelia Aguillon NP Diagnosis: afib [facility] equipment agreement signed. IRINEO understands monitor is to be returned on: 03/16/2022 Monitor number [id number] applied. Holter monitor printed and placed on Dr. Marv Urena MD desk to dictate. Procedure 1?the rhythm [...] Appointments Date/TimeProviderSpecialty Site 07/07/2022 09:20 Irineo Link, [id number] [address] 250 DO Signatures Electronically signed by : Marv Urnea MD; Mar 19 2022 6:25PM EST (Author) Electronically signed by : Enedelia Gomez APRN-ALEXANDRA; Mar 22 2022 9:37AM EST (Author) Normal [facility] Creatinine and Glomerular fi ltration rate.predicted panel (S/P/Bld)Ordered By: Enedelia Gomez on 03-11-2022 Creatinine [Mass/Vol] 1.28 mg/dL 0.64-1.27 [facility] Estimated glomerular filtrat ion rate (GFR) non- AmericanOrdered By: Enedelia Gomez on 03-11-2022 GFR/1.73 sq M.predicted among non-blacks MDRD (S/P/Bld) [Vol rate/Area] 54 mL/Min [facility] No Panel InformationOrdered By: Enedelia Gomez on 03-11-2022 Estimated GFR () > 60 mL/Min [facility] Comment on above: GFR estimated refere nce range: According to KDOQI guidelines, <60 ml/min/1.73m2 is sufficient to diagnose a patient with chronic kidney disease. Pharmacy Creatinine Clearance (Chem N/A [facility] No Panel Informationon 03-11 10.1\S\10.1 Normal 6.0-15.0 [facility] avandeo 250 DO Work Phone: 9.9\S\9.9 Normal [facility].2-10.2 [facility] avandeo 250 DO Work Phone: Comment on above: PERFORMED BY:[place] [address] [address] [place], [place] [phone] MEDICAL DIRECTORJAYY SANTA M.D. 30.5\S\30.5 above high threshold 22.0-30.0 [facility] avandeo 250 DO Work Phone: 100\S\100 Normal 95-114 [facility] Harpreet restrepo 250 DO Work Phone: 3.6\S\3.6 Normal 3.5-5.1 [facility] Harpreet restrepo 250 DO Work Phone: 137\S\137 Normal 136-146 [facility] Harpreet restrepo 250 DO Work Phone: > [address] [facility] Harpreet restrepo 250 DO Work Phone: Comment on above: GFR estimated refere nce range: According to KDOQI guidelines, <60 ml/min/1.73m2 is sufficient to diagnose a patient with chronic kidney disease. 54\S\[address] [facility] Harpreet Acosta DO Work Phone: 1.28\S\1.28 above high threshold 0.64-1.27 [facility] Harpreet restrepo 250 DO Work Phone: 17\S\17 Normal 9-23 [facility] Harpreet restrepo 250 DO Work Phone: 96\S\96 Normal 70-100 [facility] Harpreet restrepo 250 DO Work Phone: Comment on above: Random Glucose Refer ence Range is dependent on time and content of last meal. Glucose of more than 200 mg/dL in a nonstressed, ambulatory subject supports the diagnosis of Diabetes Mellitus. ADA recommended reference range Serum or plasma anion gap de terminationOrdered By: Enedelia Gomez on 03-11-2022 Anion gap [Moles/Vol] 10.1 mmol/L 6.0-15.0 [facility] Serum or plasma calcium alistair urement (mass/volume)Ordered By: Enedelia Gomez on 03-11-2022 Calcium [Mass/Vol] 9.9 mg/dL 8.2-10.2 [facility] Serum or plasma chloride jaymie surement (moles/volume)Ordered By: Enedelia Gomez on 03-11-2022 Chloride [Moles/Vol] 100 mmol/L 95-114 [facility] Serum or plasma glucose alistair urement (mass/volume)Ordered By: Enedelia Gomez on 03-11-2022 Glucose [Mass/Vol] 96 mg/dL 70-100 [facility] Comment on above: ADA recommended refe rence rangeRandom Glucose Reference Range is dependent on time and content of last meal. Glucose of more than 200 mg/dL in a nonstressed, ambulatory subject supports the diagnosis of Diabetes Mellitus. Serum or plasma potassium me asurement (moles/volume)Ordered By: Enedelia Gomez on 03-11-2022 Potassium [Moles/Vol] 3.6 mmol/L 3.5-5.1 [facility] Serum or plasma sodium measu rement (moles/volume)Ordered By: Enedelia Gomez on 03-11-2022 Sodium [Moles/Vol] 137 mmol/L 136-146 [facility] Serum or plasma total carbon dioxide measurement (moles/volume)Ordered By: Enedelia Gomez on 03-11-2022 CO2 [Moles/Vol] 30.5 mmol/L 22.0-30.0 [facility] Serum or plasma urea nitroge n measurement (mass/volume)Ordered By: Enedelia Gomez on 03-11-2022 Urea nitrogen [Mass/Vol] 17 mg/dL 9-23 [facility] Office Visit (Cardiology)on 03-10-2022 Follow-up visit [...] Mcintyre July 2021. January 2022 hospitalized at [facility] due to fall, noted bradycardia with 3.0-second pause he was seen in consultation by Dr. Urena. 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 He denies any palpitations or fast heartbeats. [...] of Cardiac catheterization History of Complete colonoscopy [facility] History of Epidural steroid injection History [...] TabletTAKE 1 (more content not included)... Normal [employer] Tobacco Screening.on 023 Adult depression screening assessment No St. [facility] [employer] DO Work Phone: Fall risk assessment b) One or more fall s in the last year [facility] [employer] DO Work Phone: Tobacco use status CPHS b) No [facility] [employer] DO Work Phone: Basophils Auto (Bld) [#/Vol] Ordered By: Raji Ennis on 01-16-2022 Basophils (Bld) [#/Vol] 0.1 10*3/uL 0.0-0.2 [facility] Basophils/100 WBC Auto (Bld) Ordered By: Raji Ennis on 01-16-2022 Basophils/100 WBC (Bld) 1.0 % . [facility] Creatinine and Glomerular fi ltration rate.predicted panel (S/P/Bld)Ordered By: Raji Ennis on 01-16-2022 Creatinine [Mass/Vol] 1.56 mg/dL 0.64-1.27 [facility] Eosinophils Auto (Bld) [#/Vo l]Ordered By: Raji Ennis on 01-16-2022 Eosinophils (Bld) [#/Vol] 0.4 10*3/uL 0.0-0.45 [facility] Eosinophils/100 WBC Auto (Bl d)Ordered By: Raji Ennis on 01-16-2022 Eosinophils/100 WBC (Bld) 5.6 % . [facility] Erythrocyte distribution wid th Auto (RBC) [Ratio]Ordered By: Raji Ennis on 01-16-2022 Erythrocyte distribution width (RBC) [Ratio] 15.3 % 12.0-14.8 [facility] Estimated glomerular filtrat ion rate (GFR) non- AmericanOrdered By: Raji Ennis on 01-16-2022 GFR/1.73 sq M.predicted among non-blacks MDRD (S/P/Bld) [Vol rate/Area] 43 mL/Min [facility] Hematocrit Auto (Bld) [Volum e fraction]Ordered By: Raji Ennis on 01-16-2022 Hematocrit (Bld) [Volume fraction] 35.4 % 38.8-50.0 [facility] Hemoglobin [Mass/volume] in BloodOrdered By: Raji Ennis on 01-16-2022 Hemoglobin (Bld) [Mass/Vol] 11.8 g/dL 13.0-17.0 [facility] Laboratory - Hematology and Cell countsOrdered By: Raji Ennis on 01-16-2022 Nucleated RBC/100 WBC (Bld) [Ratio] 0.0 % 0-0.5 [facility] Leukocytes [#/volume] in Blo od by Automated countOrdered By: Raji Arringtonam on 01-16-2022 WBC (Bld) [#/Vol] 6.5 10*3/uL 4.5-11.0 [facility] Lymphocytes Auto (Bld) [#/Vo l]Ordered By: Raji Raymon on 01-16-2022 Lymphocytes (Bld) [#/Vol] 1.1 10*3/uL 1.00-4.8 [facility] Lymphocytes/100 WBC Auto (Bl d)Ordered By: Raji Raymon on 01-16-2022 Lymphocytes/100 WBC (Bld) 17.1 % . [facility] MCH Auto (RBC) [Entitic mass ]Ordered By: Raji Raymon on 01-16-2022 MCH (RBC) [Entitic mass] 33.2 pg 27.5-35.2 [facility] MCHC Auto (RBC) [Mass/Vol]Or dered By: Raji Raymon on 01-16-2022 MCHC (RBC) [Mass/Vol] 33.3 g/dL 32.5-35.6 [facility] MCV Auto (RBC) [Entitic vol] Ordered By: Raji Raymon on 01-16-2022 MCV (RBC) [Entitic vol] 100.0 fL 83.5-101 [facility] Monocytes Auto (Bld) [#/Vol] Ordered By: Raji Raymon on 01-16-2022 Monocytes (Bld) [#/Vol] 0.8 10*3/uL 0.0-0.8 [facility] Monocytes/100 WBC Auto (Bld) Ordered By: Raji Raymon on 01-16-2022 Monocytes/100 WBC (Bld) 11.9 % . [facility] Neutrophils Auto (Bld) [#/Vo l]Ordered By: Raji Raymon on 01-16-2022 Neutrophils (Bld) [#/Vol] 4.2 10*3/uL 1.8-7.7 [facility] Neutrophils/100 WBC Auto (Bl d)Ordered By: Raji Raymon on 01-16-2022 Neutrophils/100 WBC (Bld) 64.4 % . [facility] No Panel InformationOrdered By: Raji Arringtonam on 01-16-2022 Estimated GFR () 52 mL/Min [facility] Comment on above: GFR estimated refere nce range: According to KDOQI guidelines, <60 ml/min/1.73m2 is sufficient to diagnose a patient with chronic kidney disease. Pharmacy Creatinine Clearance (Chem 39.79 [facility] Platelet mean volume Auto (B ld) [Entitic vol]Ordered By: Raji Raymon on 01-16-2022 Platelet mean volume (Bld) [Entitic vol] 9.1 fL 6.6-10.1 [facility] Platelets Auto (Bld) [#/Vol] Ordered By: Raji Raymon on 01-16-2022 Platelets (Bld) [#/Vol] 195 10*3/uL 150-450 [facility] RBC Auto (Bld) [#/Vol]Ordere d By: Raji Raymon on 01-16-2022 RBC (Bld) [#/Vol] 3.54 10*6/uL 3.90-5.60 [facility] Serum or plasma anion gap de terminationOrdered By: Raji Raymon on 01-16-2022 Anion gap [Moles/Vol] 11.4 mmol/L 6.0-15.0 [facility] Serum or plasma calcium alistair urement (mass/volume)Ordered By: Raji Raymon on 01-16-2022 Calcium [Mass/Vol] 9.0 mg/dL 8.2-10.2 [facility] Serum or plasma chloride jaymie surement (moles/volume)Ordered By: ArjiRobertson on 01-16-2022 Chloride [Moles/Vol] 95 mmol/L 95-114 [facility] Serum or plasma glucose alistair urement (mass/volume)Ordered By: RajiStaufferam on 01-16-2022 Glucose [Mass/Vol] 87 mg/dL 70-100 [facility] Comment on above: ADA recommended refe rence rangeRandom Glucose Reference Range is dependent on time and content of last meal. Glucose of more than 200 mg/dL in a nonstressed, ambulatory subject supports the diagnosis of Diabetes Mellitus. Serum or plasma potassium me asurement (moles/volume)Ordered By: Raji Ennis on 01-16-2022 Potassium [Moles/Vol] 4.0 mmol/L 3.5-5.1 [facility] Serum or plasma sodium measu rement (moles/volume)Ordered By: Raji Ennis on 01-16-2022 Sodium [Moles/Vol] 132 mmol/L 136-146 [facility] Serum or plasma total carbon dioxide measurement (moles/volume)Ordered By: Raji Ennis on 01-16-2022 CO2 [Moles/Vol] 29.6 mmol/L 22.0-30.0 [facility] Serum or plasma urea nitroge n measurement (mass/volume)Ordered By: Raji Ennis on 01-16-2022 Urea nitrogen [Mass/Vol] 29 mg/dL 9- [facility] Urine culture routineOrdered By: Frankie Reynolds on 01-15-2022 Bacteria identified Cx Nom (U) No Growth 2 Days [facility] Automated erythrocytes count in urine sediment (number/area)Ordered By: Frankie Reynolds on 01-13-2022 RBC Auto (Urine sed) [#/Area] 50-100 [HPF] 0-4 [facility] Automated leukocytes count i n urine sediment (number/area)Ordered By: Frankie Reynolds on 01-13-2022 WBC Auto (Urine sed) [#/Area] 5-9 [HPF] 0-4 [facility] Bilirubin Test strip Ql (U)O rdered By: Frankie Reynolds on 01-13-2022 Bilirubin Ql (U) Negative Negative [facility] Color Auto (U)Ordered By: Rohit Reynolds on 01-13-2022 Color (U) Yellow Yellow [facility] Ketones Auto test strip (U) [Mass/Vol]Ordered By: Frankie Reynolds on 01-13-2022 Ketones (U) [Mass/Vol] Negative Negative [facility] Laboratory - UrinalysisOrder ed By: Frankie Reynolds on 01-13-2022 Hyaline casts LM Ql (Urine sed) 0-8 [LPF] 0-8 [facility] Nitrite Test strip Ql (U)Ord ered By: Frankie Reynolds on 01-13-2022 Nitrite Ql (U) Negative Negative [facility] Protein Auto test strip (U) [Mass/Vol]Ordered By: Frankie Reynolds on 01-13-2022 Protein (U) [Mass/Vol] 30 mg/dL Negative Fi [facility] Serum or plasma uric acid me asurement (mass/volume)Ordered By: Frankie Reynolds on 01-13-2022 Urate [Mass/Vol] 4.7 mg/dL 2.6-7.2 [facility] Serum or plasma vancomycin m easurement (mass/volume)Ordered By: Raji Ennis on 01-13-2022 Vancomycin [Mass/Vol] 9.7 ug/mL 5.0-20.0 [facility] Comment on above: Last dose: - Specific gravity Auto test s trip (U) [Rel density]Ordered By: Frankie Reynolds on 01-13-2022 Specific gravity (U) [Rel density] 1.012 1.001-1.03 0 [facility] Squamous epithelial cells de tection in urine sediment by light microscopyOrdered By: Frankie Reynolds on 01-13-2022 Epithelial cells.squamous LM Ql (Urine sed) 0-1 [HPF] 0-2 [facility] Urine bacteria detection by automated methodOrdered By: Frankie Reynolds on 01-13-2022 Bacteria Auto Ql (U) None seen None Seen [facility] Urine clarity by refractomet ry automatedOrdered By: Frankie Reynolds on 01-13-2022 Clarity Refractometry automated (U) Clear Clear [facility] Urine culture routineOrdered By: Frankie Reynolds on 01-13-2022 Bacteria identified Cx Nom (U) No Growth 2 Days [facility] Urine glucose measurement by automated test strip (mass/volume)Ordered By: Frankie Reynolds on 01-13-2022 Glucose Auto test strip (U) [Mass/Vol] Normal mg/dL Normal [facility] Urine hemoglobin detection b y automated test stripOrdered By: Frankie Reynolds on 01-13-2022 Hemoglobin Auto test strip Ql (U) 3+ Negative [facility] Urine leukocyte esterase det ection by automated test stripOrdered By: Frankie Reynolds on 01-13-2022 Leukocyte esterase Auto test strip Ql (U) 2+ Negative [facility] Urobilinogen Auto test strip (U) [Mass/Vol]Ordered By: Frankie Reynolds on 01-13-2022 Urobilinogen (U) [Mass/Vol] Normal mg/dL Normal [facility] pH Auto test strip (U)Ordere d By: Frankie Reynolds on 01-13-2022 pH (U) 5.5 [pH] 5.0-9.0 [facility] Bacterial blood cultureOrder ed By: Raji Ennis on 01-12-2022 Bacteria identified Cx Nom (Bld) NO GROWTH 5 DAYS [facility] C reactive protein [Mass/vol ume] in Serum or PlasmaOrdered By: Raji Ennis on 01-12-2022 CRP [Mass/Vol] 8.4 mg/dL 0.0-1.0 [facility] Albumin [Mass/volume] in Ser um or PlasmaOrdered By: Vikas Mane on 01-11-2022 Albumin [Mass/Vol] 2.9 g/dL 2.9-4.4 [facility] IgA [Mass/volume] in Serum o r PlasmaOrdered By: Vikas Mane on 01-11-2022 IgA [Mass/Vol] 171 mg/dL 61-437 [facility] IgG [Mass/volume] in Serum o r PlasmaOrdered By: Vikas Mane on 01-11-2022 IgG [Mass/Vol] 816 mg/dL 603-1613 [facility] IgM [Mass/volume] in Serum o r PlasmaOrdered By: Vikas Mane on 01-11-2022 IgM [Mass/Vol] 105 mg/dL 15-143 [facility] Comment on above: Performed at: [facility] [address] [id number] Director: Patrick Ortiz PhD, Phone: [phone] No Panel InformationOrdered By: Vikas Mane on 01-11-2022 Protein Electrophoresis M-Franky Not observed g/dL Not Observed [facility] Protein Electrophoresis Note See comment . [facility] Comment on above: Protein electrophore sis scan will follow via computer,mail, or brassiere cup mold cutter delivery.Performed at: [facility] [facility] [address] [id number] Director: Patrick Ortiz PhD, Phone: [phone] Serum Immunofixation See comment . [facility] Comment on above: No monoclonality det ected. Protein [Mass/volume] in Ser um or PlasmaOrdered By: Vikas Mane on 01-11-2022 Protein [Mass/Vol] 5.3 g/dL 6.0-8.5 [facility] Serum globulin measurement ( mass/volume)Ordered By: Vikas Mane on 01-11-2022 Globulin (S) [Mass/Vol] 2.4 g/dL 2.2-3.9 [facility] Serum or plasma albumin/glob ulin mass ratioOrdered By: Vikas Mane on 01-11-2022 Albumin/Globulin [Mass ratio] 1.2 {ratio} 0.7-1.7 [facility] Serum or plasma alpha 1 glob ulin measurement by electrophoresis (mass/volume)Ordered By: Vikas Mane on 01-11-2022 Alpha 1 globulin Elph [Mass/Vol] 0.4 g/dL 0.0-0.4 [facility] Serum or plasma alpha 2 glob ulin measurement by electrophoresis (mass/volume)Ordered By: Vikas Mane on 01-11-2022 Alpha 2 globulin Elph [Mass/Vol] 0.7 g/dL 0.4-1.0 [facility] Serum or plasma beta globuli n measurement by electrophoresis (mass/volume)Ordered By: Vikas Mane on 01-11-2022 Beta globulin Elph [Mass/Vol] 0.6 g/dL 0.7-1.3 [facility] Serum or plasma gamma globul in measurement by electrophoresis (mass/volume)Ordered By: Vikas Mane on 01-11-2022 Gamma globulin Elph [Mass/Vol] 0.8 g/dL 0.4-1.8 [facility] Folate [Mass/volume] in Seru m or PlasmaOrdered By: Dharmesh Zavala on 01-10-2022 Folate [Mass/Vol] 8.8 ng/mL >5.9 [facility] Comment on above: Folate reference ran ge: >5.9 ng/mlThe WHO technical consultation on folate and vitamin [id number] has determined that folate concentrations lessthan 4 ng/ml are considered deficient. Glucose mean value [Mass/vol ume] in Blood Estimated from glycated hemoglobinOrdered By: Dharmesh Zavala on 01-10-2022 Average glucose Estimated from glycated hemoglobin (Bld) [Mass/Vol] 114 mg/dL [facility] Hemoglobin A1c percentageOrd ered By: Dharmesh Zavala on 01-10-2022 HbA1c (Bld) [Mass fraction] 5.6 % 4.3-5.6 [facility] Comment on above: Increased risk for d iabetes: 5.7 - 6.4diabetes: >6.4glycemic control for adults with diabetes: <7.0 Iron [Mass/volume] in Serum or PlasmaOrdered By: Dharmesh Zavala on 01-10-2022 Iron [Mass/Vol] 13 ug/dL 40-160 [facility] Laboratory - Chemistry and C hemistry - challengeOrdered By: Dharmesh Zavala on 01-10-2022 Cobalamin (Vitamin B12) [Mass/Vol] 458 pg/mL 180-914 [facility] Magnesium [Mass/Vol] 1.9 mg/dL 1.6-2.6 [facility] Natriuretic peptide B (Bld) [Mass/Vol] 679.0 pg/mL 5-100 [facility] TSH DL <= 0.005 mIU/L QnOrde red By: Dharmesh Zavala on 01-10-2022 TSH Qn 3.99 m[IU]/L 0.45-5.33 [facility] Troponin I.cardiac [Mass/vol ume] in Serum or Plasma by High sensitivity methodOrdered By: Dharmesh Zavala on 01-10-2022 Troponin I.cardiac High sensitivity method [Mass/Vol] 110 pg/mL 0-20 [facility] Comment on above: Results calledat 080 8 on 01/10/22 Activated partial thrombopla stin time (aPTT) in platelet poor plasma by coagulation aOrdered By: Frankei Paiz on 01-09-2022 aPTT Coag (PPP) [Time] 39.1 s 25.1-36.5 [facility] Automated erythrocytes count in urine sediment (number/area)Ordered By: Frankie Paiz on 01-09-2022 RBC Auto (Urine sed) [#/Area] 0-1 [HPF] 0-4 [facility] Automated leukocytes count i n urine sediment (number/area)Ordered By: Frankie Paiz on 01-09-2022 WBC Auto (Urine sed) [#/Area] 5-9 [HPF] 0-4 [facility] Basophils Auto (Bld) [#/Vol] Ordered By: Frankie Paiz on 01-09-2022 Basophils (Bld) [#/Vol] 0.1 10*3/uL 0.0-0.2 [facility] Basophils/100 WBC Auto (Bld) Ordered By: Frankie Paiz on 01-09-2022 Basophils/100 WBC (Bld) 1.0 % . [facility] Bilirubin Test strip Ql (U)O rdered By: Frankie Paiz on 01-09-2022 Bilirubin Ql (U) Negative Negative [facility] COVID-19 Positive/NegativeOr dered By: Frankie Paiz on 01-09-2022 SARS-CoV-2 (COVID-19) N gene SMITHA+probe Ql (Resp) Negative Negative [facility] Comment on above: Testing for SARS-CoV -2 by RT-PCRThis test was developed and its performance characteristics determined by [employer] ([employer]) and validated at the [facility]. This test has not been FDA [...] terminated or revoked sooner. COVID-19 SOFIAOrdered By: Rohit Paiz on 01-09-2022 SARS-CoV+SARS-CoV-2 (COVID-19) Ag IA.rapid Ql (Resp) Negative Negative [facility] Comment on above: This is a duplicate Veronica SARS Antigen (MADHAVI) result to be used for statistical tracking purpose only. Color Auto (U)Ordered By: Rohit Paiz on 01-09-2022 Color (U) Yellow Yellow [facility] Creatine kinase [Enzymatic a ctivity/volume] in Serum or PlasmaOrdered By: Frankie Paiz on 01-09-2022 CK [Catalytic activity/Vol] 231 U/L 22-269 [facility] Creatinine and Glomerular fi ltration rate.predicted panel (S/P/Bld)Ordered By: Frankie Paiz on 01-09-2022 Creatinine [Mass/Vol] 1.62 mg/dL 0.64-1.27 [facility] Eosinophils Auto (Bld) [#/Vo l]Ordered By: Frankie Paiz on 01-09-2022 Eosinophils (Bld) [#/Vol] 0.0 10*3/uL 0.0-0.45 [facility] Eosinophils/100 WBC Auto (Bl d)Ordered By: Frankie Paiz on 01-09-2022 Eosinophils/100 WBC (Bld) 0.1 % . [facility] Erythrocyte distribution wid th Auto (RBC) [Ratio]Ordered By: Frankei Paiz on 01-09-2022 Erythrocyte distribution width (RBC) [Ratio] 15.9 % 12.0-14.8 [facility] Estimated glomerular filtrat ion rate (GFR) non- AmericanOrdered By: Frankie Paiz on 01-09-2022 GFR/1.73 sq M.predicted among non-blacks MDRD (S/P/Bld) [Vol rate/Area] 41 mL/Min [facility] Hematocrit Auto (Bld) [Volum e fraction]Ordered By: Frankie Paiz on 01-09-2022 Hematocrit (Bld) [Volume fraction] 36.5 % 38.8-50.0 [facility] Hemoglobin [Mass/volume] in BloodOrdered By: Frankie Paiz on 01-09-2022 Hemoglobin (Bld) [Mass/Vol] 12.1 g/dL 13.0-17.0 [facility] Ketones Auto test strip (U) [Mass/Vol]Ordered By: Frankie Paiz on 01-09-2022 Ketones (U) [Mass/Vol] Trace Negative [facility] Laboratory - Chemistry and C hemistry - challengeOrdered By: Frankie Paiz on 01-09-2022 Natriuretic peptide B (Bld) [Mass/Vol] 1810.0 pg/mL 5-100 [facility] - CoagulationOrde red By: Frankie Paiz on 01-09-2022 PT Coag (PPP) [Time] 28.4 s 9.0-12.9 [facility] Laboratory - Hematology and Cell countsOrdered By: Frankie Paiz on 01-09-2022 Nucleated RBC/100 WBC (Bld) [Ratio] 0.1 % 0-0.5 [facility] - UrinalysisOrder ed By: Frankie Paiz on 01-09-2022 Hyaline casts LM Ql (Urine sed) 0-8 [LPF] 0-8 [facility] Leukocytes [#/volume] in Blo od by Automated countOrdered By: Frankie Paiz on 01-09-2022 WBC (Bld) [#/Vol] 6.0 10*3/uL 4.5-11.0 [facility] Lymphocytes Auto (Bld) [#/Vo l]Ordered By: Frankie Paiz on 01-09-2022 Lymphocytes (Bld) [#/Vol] 0.8 10*3/uL 1.00-4.8 [facility] Lymphocytes/100 WBC Auto (Bl d)Ordered By: Frankie Paiz on 01-09-2022 Lymphocytes/100 WBC (Bld) 13.5 % . [facility] MCH Auto (RBC) [Entitic mass ]Ordered By: Frankie Paiz on 01-09-2022 MCH (RBC) [Entitic mass] 33.7 pg 27.5-35.2 [facility] MCHC Auto (RBC) [Mass/Vol]Or dered By: Frankie Paiz on 01-09-2022 MCHC (RBC) [Mass/Vol] 33.2 g/dL 32.5-35.6 [facility] MCV Auto (RBC) [Entitic vol] Ordered By: Frankie Paiz on 01-09-2022 MCV (RBC) [Entitic vol] 101.5 fL 83.5-101 [facility] Monocytes Auto (Bld) [#/Vol] Ordered By: Frankie Paiz on 01-09-2022 Monocytes (Bld) [#/Vol] 0.9 10*3/uL 0.0-0.8 [facility] Monocytes/100 WBC Auto (Bld) Ordered By: Frankie Paiz on 01-09-2022 Monocytes/100 WBC (Bld) 14.2 % . [facility] Neutrophils Auto (Bld) [#/Vo l]Ordered By: Frankie Paiz on 01-09-2022 Neutrophils (Bld) [#/Vol] 4.3 10*3/uL 1.8-7.7 [facility] Neutrophils/100 WBC Auto (Bl d)Ordered By: Frankie Paiz on 01-09-2022 Neutrophils/100 WBC (Bld) 71.2 % . [facility] Nitrite Test strip Ql (U)Ord ered By: Frankie Paiz on 01-09-2022 Nitrite Ql (U) Negative Negative [facility] No Panel InformationOrdered By: Frankie Paiz on 01-09-2022 SARS Antigen (LFIA) [facility] Estimated GFR () 50 mL/Min [facility] Comment on above: GFR estimated refere nce range: According to KDOQI guidelines, <60 ml/min/1.73m2 is sufficient to diagnose a patient with chronic kidney disease. Pharmacy Creatinine Clearance (Chem 39.44 [facility] SARS Antigen (LFIA) [facility] Platelet mean volume Auto (B ld) [Entitic vol]Ordered By: Frankie Paiz on 01-09-2022 Platelet mean volume (Bld) [Entitic vol] 8.3 fL 6.6-10.1 [facility] Platelet poor plasma interna tional normalized ratio (INR) by coagulation assay (relatOrdered By: Frankie Paiz on 01-09-2022 INR Coag (PPP) [Relative time] 2.5 {INR} [facility] Comment on above: INR Therapeutic Rang [...] 4.5 Platelets Auto (Bld) [#/Vol] Ordered By: Frankie Paiz on 01-09-2022 Platelets (Bld) [#/Vol] 162 10*3/uL 150-450 [facility] Protein Auto test strip (U) [Mass/Vol]Ordered By: Frankie Paiz on 01-09-2022 Protein (U) [Mass/Vol] Trace mg/dL Negative F [facility] RBC Auto (Bld) [#/Vol]Ordere d By: Frankie Paiz on 01-09-2022 RBC (Bld) [#/Vol] 3.59 10*6/uL 3.90-5.60 [facility] Serum or plasma anion gap de terminationOrdered By: Frankie Paiz on 01-09-2022 Anion gap [Moles/Vol] 14.9 mmol/L 6.0-15.0 [facility] Serum or plasma calcium alistair urement (mass/volume)Ordered By: Frankie Paiz on 01-09-2022 Calcium [Mass/Vol] 9.2 mg/dL 8.2-10.2 [facility] Serum or plasma chloride jaymie surement (moles/volume)Ordered By: Frankie Paiz on 01-09-2022 Chloride [Moles/Vol] 100 mmol/L 95-114 [facility] Serum or plasma creatine kin ase MB (CKMB)/total creatine kinase (CK) ratio by calculaOrdered By: Frankie Paiz on 01-09-2022 CK.MB Calc [Catalytic fraction] 2.3 % 0.00-2.50 [facility] Serum or plasma creatine kin ase MB measurement (mass/volume)Ordered By: Frankie Paiz on 01-09-2022 CK.MB [Mass/Vol] 5.4 ng/mL 0.6-6.3 [facility] Serum or plasma glucose alistair urement (mass/volume)Ordered By: Frankie Paiz on 01-09-2022 Glucose [Mass/Vol] 99 mg/dL 70-100 [facility] Comment on above: ADA recommended refe rence rangeRandom Glucose Reference Range is dependent on time and content of last meal. Glucose of more than 200 mg/dL in a nonstressed, ambulatory subject supports the diagnosis of Diabetes Mellitus. Serum or plasma potassium me asurement (moles/volume)Ordered By: Frankie Paiz on 01-09-2022 Potassium [Moles/Vol] 4.1 mmol/L 3.5-5.1 [facility] Serum or plasma sodium measu rement (moles/volume)Ordered By: Frankie Paiz on 01-09-2022 Sodium [Moles/Vol] 136 mmol/L 136-146 [facility] Serum or plasma total carbon dioxide measurement (moles/volume)Ordered By: Frankie Paiz on 01-09-2022 CO2 [Moles/Vol] 25.2 mmol/L 22.0-30.0 [facility] Serum or plasma urea nitroge n measurement (mass/volume)Ordered By: Frankie Paiz on 01-09-2022 Urea nitrogen [Mass/Vol] 21 mg/dL 9-23 [facility] Specific gravity Auto test s trip (U) [Rel density]Ordered By: Frankie Paiz on 01-09-2022 Specific gravity (U) [Rel density] 1.018 1.001-1.03 0 [facility] Squamous epithelial cells de tection in urine sediment by light microscopyOrdered By: Frankie Paiz on 01-09-2022 Epithelial cells.squamous LM Ql (Urine sed) 0-1 [HPF] 0-2 [facility] Troponin I.cardiac [Mass/vol ume] in Serum or Plasma by High sensitivity methodOrdered By: Frankie Paiz on 01-09-2022 Troponin I.cardiac High sensitivity method [Mass/Vol] 101 pg/mL 0-20 [facility] Comment on above: Results calledat 120 8 on 01/09/22 Urine bacteria detection by automated methodOrdered By: Frankie Paiz on 01-09-2022 Bacteria Auto Ql (U) None seen None Seen [facility] Urine clarity by refractomet ry automatedOrdered By: Frankie Paiz on 01-09-2022 Clarity Refractometry automated (U) Cloudy Clear [facility] Urine glucose measurement by automated test strip (mass/volume)Ordered By: Frankie Paiz on 01-09-2022 Glucose Auto test strip (U) [Mass/Vol] Normal mg/dL Normal [facility] Urine hemoglobin detection b y automated test stripOrdered By: Frankie Paiz on 01-09-2022 Hemoglobin Auto test strip Ql (U) Negative Negative [facility] Urine leukocyte esterase det ection by automated test stripOrdered By: Frankie Paiz on 01-09-2022 Leukocyte esterase Auto test strip Ql (U) 2+ Negative [facility] Urobilinogen Auto test strip (U) [Mass/Vol]Ordered By: Frankie Paiz on 01-09-2022 Urobilinogen (U) [Mass/Vol] Normal mg/dL Normal [facility] Yeast detection in urine sed iment by light microscopyOrdered By: Frankie Paiz on 01-09-2022 Yeast LM Ql (Urine sed) None seen [HPF] None Seen [facility] pH Auto test strip (U)Ordere d By: Frankie Paiz on 01-09-2022 pH (U) 5.5 [pH] 5.0-9.0 [facility] Body fluid albumin measureme nt (mass/volume)Ordered By: Feliciano Ga on 12-17-2021 Albumin (Body fld) [Mass/Vol] 3.5 g/dL 3.2-5.5 [facility] Creatinine and Glomerular fi ltration rate.predicted panel (S/P/Bld)Ordered By: Feliciano Ga on 12-17-2021 Creatinine [Mass/Vol] 1.29 mg/dL 0.64-1.27 [facility] Estimated glomerular filtrat ion rate (GFR) non- AmericanOrdered By: Feliciano Ga on 12-17-2021 GFR/1.73 sq M.predicted among non-blacks MDRD (S/P/Bld) [Vol rate/Area] 54 mL/Min [facility] Globulin Calc (S) [Mass/Vol] Ordered By: Feliciano Ga on 12-17-2021 Globulin (S) [Mass/Vol] 2.2 g/dL [facility] No Panel InformationOrdered By: Feliciano Ga on 12-17-2021 Estimated GFR () > 60 mL/Min [facility] Comment on above: GFR estimated refere nce range: According to KDOQI guidelines, <60 ml/min/1.73m2 is sufficient to diagnose a patient with chronic kidney disease. Pharmacy Creatinine Clearance (Chem N/A [facility] Protein [Mass/volume] in Ser um or PlasmaOrdered By: Feliciano Ga on 12-17-2021 Protein [Mass/Vol] 5.7 g/dL 6.1-7.9 [facility] Serum or plasma alanine alvarez otransferase measurement without P-5'-P (enzymatic activiOrdered By: Feliciano Ga on 12-17-2021 ALT No additional P-5'-P [Catalytic activity/Vol] 19 U/L 10-60 [facility] Serum or plasma albumin/glob ulin mass ratioOrdered By: Feliciano Ga on 12-17-2021 Albumin/Globulin [Mass ratio] 1.6 {ratio} [facility] Serum or plasma alkaline harish sphatase measurement (enzymatic activity/volume)Ordered By: Feliciano Ga on 12-17-2021 ALP [Catalytic activity/Vol] 92 U/L 32-92 [facility] Serum or plasma anion gap de terminationOrdered By: Feliciano Ga on 12-17-2021 Anion gap [Moles/Vol] 15.3 mmol/L 6.0-15.0 [facility] Serum or plasma aspartate am inotransferase measurement (enzymatic activity/volume)Ordered By: Feliciano Ga on 12-17-2021 AST [Catalytic activity/Vol] 27 U/L 1042 [facility] Serum or plasma calcium alistair urement (mass/volume)Ordered By: Feliciano Ga on 12-17-2021 Calcium [Mass/Vol] 9.6 mg/dL 8.2-10.2 [facility] Serum or plasma chloride jaymie surement (moles/volume)Ordered By: Feliciano Ga on 12-17-2021 Chloride [Moles/Vol] 103 mmol/L 95-114 [facility] Serum or plasma glucose alistair urement (mass/volume)Ordered By: Feliciano Ga on 12-17-2021 Glucose [Mass/Vol] 84 mg/dL 70-100 [facility] Comment on above: ADA recommended refe rence rangeRandom Glucose Reference Range is dependent on time and content of last meal. Glucose of more than 200 mg/dL in a nonstressed, ambulatory subject supports the diagnosis of Diabetes Mellitus. Serum or plasma potassium me asurement (moles/volume)Ordered By: Feliciano Ga on 12-17-2021 Potassium [Moles/Vol] 4.5 mmol/L 3.5-5.1 [facility] Serum or plasma sodium measu rement (moles/volume)Ordered By: Feliciano Ga on 12-17-2021 Sodium [Moles/Vol] 139 mmol/L 136-146 [facility] Serum or plasma total biliru bin measurement (mass/volume)Ordered By: Feliciano Ga on 12-17-2021 Bilirubin [Mass/Vol] 1.2 mg/dL 0.3-1.2 [facility] Serum or plasma total carbon dioxide measurement (moles/volume)Ordered By: Feliciano Ga on 12-17-2021 CO2 [Moles/Vol] 25.2 mmol/L 22.0-30.0 [facility] Serum or plasma urea nitroge n measurement (mass/volume)Ordered By: Feliciano Ga on 12-17-2021 Urea nitrogen [Mass/Vol] 16 mg/dL 9-23 [facility] TSH DL <= 0.005 mIU/L QnOrde red By: Feliciano Ga on 12-17-2021 TSH Qn 1.83 m[IU]/L 0.45-5.33 [facility] Thyroxine (T4) free [Mass/vo lume] in Serum or PlasmaOrdered By: Feliciano Ga on 12-17-2021 Free T4 [Mass/Vol] 1.09 ng/dL 0.61-1.12 [facility] Office Visit (Cardiology)on 08-04-2021 Follow-up visit Diagnoses/Problems [...] of Cardiac catheterization History of Complete colonoscopy [facility] History of Hip replacement History of [...] for com (more content not included)... Normal [employer] Tobacco Screening.on 022 Adult depression screening assessment No [facility] [employer] lauro 250 DO Work Phone: Fall risk assessment b) One or more [facility] the [facility] lauro 250 DO Work Phone: Tobacco use status [facility] b) No [facility] [employer] 250 DO Work Phone: Tobacco Screening.on 021 Fall risk assessment b) One or more fall s in the last year [facility] [employer] lauro 250 DO Work Phone: Tobacco use status [facility] b) No [facility] avandeo 250 DO Work Phone: Coding Summary.on 12-16-2016 Coding Summary. CODING DATE: 017 [facility] STATUS: Home (Routine DC) PAYOR: Medicare [...] neoplasm of other organs and systems Z79.01 custodial (current) use of anticoagulants Z96.649 Presence of [...] Bynum Date Saved: 12/16/2016 09:56 am Normal [facility] Inpatient Patient Summaryon 12-15-2016 Inpatient Patient Summary [place] [id number] [place] [id number] Clinical SummaryPerson Information Name: IRINEO WALLIS Age: 76 Years : 1940 12:00 AM Sex: Male PCP: NONE, XXXX Marital Status: Race:White Ethnicity:Non- or Language:Cambodian Visit Id: Visit Reason:BPH WITH OBSTRUCTION Speciality: Acuity: Enc Type: Outpatient Med Service: Surgery Arrival:12/15/2016 8:36 AM Discharge: Dispo Type: Address:[address] [phone] Provider Notes: Diagnosis: Problems No Problems Documented [...] Information: EU - Urolift Discharge Instructions (CUSTOM) Normal [facility] Main OR Intraoperative Recor don 12-15-2016 Main OR Intraoperative Record IntraOp Document Type FTURO Summary Primary Physician: Dontrell Good MD Finalized Date/Time: 12/15/16 09:47:51 Pt. Name: KADI IRINEO Valladares/Sex: 1940 Male Med Rec #: [id number] Physician: Dontrell Good MD Financial #: [id number] Pt. Type: O Room/Bed: / Admit/Disch: 12/15/16 08:36:09 - Institution: Case Times FTURO Entry 1 Patient Times In Room 12/15/16 09:25:00 Out Room 12/15/16 09:51:00 Procedure Times Start 12/15/16 09:34:00 Stop 12/15/16 09:46:00 Anesthesia Times Last Modified By: Fanta FLORES, Olive VALLE 12/15/16 09:46:12 Case Attendance FTURO Entry 1 Entry 2 Entry 3 Case Attendee Fanta FLORES, CNOR, Ailin BENJAMIN, Sylwia Good MD, Dontrell Schaefer Role Performed Settlement Agent - Primary Scrub - Primary Surgeon - Primary Time In 12/15/16 09:25:00 12/15/16 09:25:00 12/15/16 09:25:00 Time Out 12/15/16 09:51:00 12/15/16 09:51:00 12/15/16 09:51:00 Procedure CYSTOSCOPY LOCAL CYSTOSCOPY LOCAL CYSTOSCOPY LOCAL UROLIFT(.) UROLIFT(.) UROLIFT(.) Comments Last Modified By: Fanta FLORES, BARRYOR, Fanta FLORES, BARRYOR, Fanta FLORES, LEONARD, Olive 12/15/16 Olive 12/15/16 Olive 12/15/16 09:46:13 09:46:13 09:46:13 General Comments: 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 Name: KADI IRINEO Membreno./Sex: 1940 Male Med Rec #: [id number] Physician: Dontrell Good MD Financial #: [id number] Pt. Type: O Room/Bed: / Admit/Disch: 12/15/16 [...] Complaints of Pain: No Skin Integrity Intact, [place], Warm, & Dry Vitals - EU Blood Pressure 107/68 Pulse 78 bpm Respirations 16 br/min SPO2 Additional None RN Reviewed Yes Specimens Collected Last Modified By: LEONARD Jewell RN, Ruthann 12/15/16 09:30:48 Finalized By: LEONARD Jewell RN, Ruthann Document Signatures Signed By: LEONARD Jewell RN, Ruthann 12/15/16 09:30 Ingris Goel 12/15/16 09:09 LEONARD Jewell RN, Ruthann 12/15/16 09:34 Normal [facility] Operative Reporton 7 Operative Report Patient: LEAH [...] procedure (10 mg diazepam, 5/325 mg of Garrison), Local Anesthesia (60cc 2% Xylocaine liquid inserted [...] procedure well and was subsequently discharged home. [facility] Comment on above: Result Comment: Elec tronically Signed By: Florentino TIDWELL, Dontrell Roe\.br\Date and Time Signed: 12/15/16 09:49 EDT Vital Signs Date Time Vital Sign Value Performing Clinician Facility 09-21-2023 10:00-0400 Body height 167.64 cm DO Feliciano Askem Work Phone: [facility] 09-21-2023 10:00-0400 Body mass index (BMI) [Ratio] 29.8 kg/m2 DO Feliciano [employer] Work Phone: [facility] 09-21-2023 10:00-0400 Body weight 83.91 kg DO Feliciano [employer] Work Phone: [facility] 09-21-2023 10:00-0400 Diastolic blood pressure 74 mm[Hg] DO Feliciano [employer] Work Phone: [facility] 09-21-2023 10:00-0400 Heart rate 72 /min DO Feliciano [employer] Work Phone: [facility] 09-21-2023 10:00-0400 Respiratory rate 16 /min DO Feliciano [employer] Work Phone: [facility] 09-21-2023 10:00-0400 Systolic blood pressure 134 mm[Hg] DO Feliciano [employer] Work Phone: [facility] 07-13-2023 10:30-0400 Diastolic blood pressure 78 mm[Hg] Irineo Mcintyre DO Work Phone: [facility] 07-13-2023 10:30-0400 Systolic blood pressure 132 mm[Hg] Irineo Mcintyre DO Work Phone: [facility] 07-13-2023 09:57-0400 Body height 167.6 cm Irineo Mcintyre DO Work Phone: [facility] 07-13-2023 09:57-0400 Body mass index (BMI) [Ratio] 29.8 kg/m2 Irineo Mcintyre DO Work Phone: [facility] 07-13-2023 09:57-0400 Body weight 83.73 kg Irineo Mcintyre DO Work Phone: [facility] 07-13-2023 09:57-0400 Heart rate 60 /min Irineo Mcintyre DO Work Phone: [facility] 03-18-2023 09:15-0500 Body height 167.64 cm Feliciano Ga Other [employer] Other 03-18-2023 09:15-0500 Body mass index (BMI) [Ratio] 29.7 kg/m2 Feliciano Ga Other [employer] Other 03-18-2023 09:15-0500 Body weight 83.46 kg Feliciano Ga Other [employer] Other 03-18-2023 09:15-0500 Diastolic blood pressure 80 mm[Hg] Feliciano Ga Other [employer] Other 03-18-2023 09:15-0500 Respiratory rate 16 /min Feliciano Ga Other [employer] Other 03-18-2023 09:15-0500 SaO2% (BldA) [Mass fraction] 97 % Feliciano Ga Other [employer] Other 03-18-2023 09:15-0500 Systolic blood pressure 124 mm[Hg] Feliciano Ga Other [employer] Other 09-15-2022 09:15-0400 Body height 167.64 cm Feliciano Ga Other [employer] Other 09-15-2022 09:15-0400 Body mass index (BMI) [Ratio] 28.11 kg/m2 Feliciano Ga Other [employer] Other 09-15-2022 09:15-0400 Body weight 79.02 kg Feliciano Ga Other [employer] Other 09-15-2022 09:15-0400 Diastolic blood pressure 70 mm[Hg] Feliciano Ga Other [employer] Other 09-15-2022 09:15-0400 Respiratory rate 16 /min Feliciano Ga Other [employer] Other 09-15-2022 09:15-0400 SaO2% (BldA) [Mass fraction] 96 % Feliciano Ga Other [employer] Other 09-15-2022 09:15-0400 Systolic blood pressure 112 mm[Hg] Feliciano Ga Other [employer] Other 07-07-2022 09:36-0400 Body height 167.64 cm Feliciano Ga Work Phone: [facility] 250 DO Work Phone: 07-07-2022 09:36-0400 Body mass index (BMI) [Ratio] 28.89 kg/m2 Feliciano Ga Work Phone: [facility] 250 DO Work Phone: 07-07-2022 09:36-0400 Body surface area Derived from formula 1.91 m2 Feliciano Ga Work Phone: [facility] 250 DO Work Phone: 07-07-2022 09:36-0400 Body weight 81.19 kg Feliciano Ga Work Phone: [facility] 250 DO Work Phone: 07-07-2022 09:36-0400 Diastolic blood pressure 84 mm[Hg] Feliciano Ga Work Phone: [facility] 250 DO Work Phone: 07-07-2022 09:36-0400 Heart rate 76 /min Feliciano Ga Work Phone: [facility] 250 DO Work Phone: 07-07-2022 09:36-0400 Systolic blood pressure 128 mm[Hg] Feliciano Ga Work Phone: [facility] 250 DO Work Phone: 06-07-2022 10:15-0400 Body height 167.64 cm Feliciano Ga Other [employer] Other 06-07-2022 10:15-0400 Body mass index (BMI) [Ratio] 29.7 kg/m2 Feliciano Ga Other [employer] Other 06-07-2022 10:15-0400 Body weight 83.46 kg Feliciano Ga Other [facility] [employer] Other 06-07-2022 10:15-0400 Diastolic blood pressure 60 mm[Hg] Feliciano Harmeet Other [place] [employer] Other 06-07-2022 10:15-0400 Respiratory rate 16 /min Feliciano Tjcatie Other [place] [employer] Other 06-07-2022 10:15-0400 SaO2% (BldA) [Mass fraction] 96 % Feliciano Tjcatie Other [facility] [employer] Other 06-07-2022 10:15-0400 Systolic blood pressure 120 mm[Hg] Feliciano Tjcatie Other [facility] [employer] Other 03-10-2022 14:47-0500 Body height 167.64 cm Feliciano Ga Work Phone: [facility] [employer] [place] 250 DO Work Phone: 03-10-2022 14:47-0500 Body mass index (BMI) [Ratio] 30.18 kg/m2 Feliciano Louis Ga Work Phone: [facility] 250 DO Work Phone: 03-10-2022 14:47-0500 Body surface area Derived from formula 1.94 m2 Feliciano Louis Ga Work Phone: [facility] 250 DO Work Phone: 03-10-2022 14:47-0500 Body weight 84.82 kg Feliciano Louis Spencers Work Phone: [facility] 250 DO Work Phone: 03-10-2022 14:47-0500 Diastolic blood pressure 90 mm[Hg] Feliciano Ga Work Phone: [facility] [employer] 250 DO Work Phone: 03-10-2022 14:47-0500 Heart rate 72 /min Feliciano Ga Work Phone: [facility] [employer] [place] 250 DO Work Phone: 03-10-2022 14:47-0500 Systolic blood pressure 128 mm[Hg] Felicianoamadou Ga Work Phone: [facility] [employer] 250 DO Work Phone: 03-09-2022 13:30-0500 Body height 142.24 cm Feliciano Ga Other [employer] Other 03-09-2022 13:30-0500 Body mass index (BMI) [Ratio] 42.82 kg/m2 Feliciano Ga Other [employer] Other 03-09-2022 13:30-0500 Body weight 86.64 kg Feliciano Ga Other [employer] Other 03-09-2022 13:30-0500 Diastolic blood pressure 78 mm[Hg] Feliciano Ga Other [employer] Other 03-09-2022 13:30-0500 Respiratory rate 16 /min Felicinao Ga Other [employer] Other 03-09-2022 13:30-0500 SaO2% (BldA) [Mass fraction] 96 % Feliciano Ga Other [employer] Other 03-09-2022 13:30-0500 Systolic blood pressure 136 mm[Hg] Feliciano Ga Other [employer] Other 02-09-2022 15:45-0500 Body height 142.24 cm Felicianoamadou Spencercatie Other [employer] Other 02-09-2022 15:45-0500 Body mass index (BMI) [Ratio] 44.92 kg/m2 Feliciano Ga Other [employer] Other 02-09-2022 15:45-0500 Body weight 90.9 kg Feliciano Harmeet Other [employer] Other 02-09-2022 15:45-0500 Diastolic blood pressure 83 mm[Hg] Feliciano Ga Other [employer] Other 02-09-2022 15:45-0500 Respiratory rate 16 /min Feliciano Ga Other [employer] Other 02-09-2022 15:45-0500 SaO2% (BldA) [Mass fraction] 98 % Feliciano Ga Other [employer] Other 02-09-2022 15:45-0500 Systolic blood pressure 124 mm[Hg] Feliciano Ga Other [employer] Other 01-16-2022 11:37-0500 Body temperature 98.1 [degF] DO Feliciano Spencers Work Phone: [facility] 01-16-2022 11:37-0500 Diastolic blood pressure 71 mm[Hg] DO Feliciano Kuns Work Phone: [facility] 01-16-2022 11:37-0500 Heart rate 79 /min DO Feliciano Kuns Work Phone: [facility] 01-16-2022 11:37-0500 Respiratory rate 16 /min DO Feliciano Ga Work Phone: [facility] 01-16-2022 11:37-0500 SaO2% (BldA) [Mass fraction] 97 % DO Felicianoamadou Ga Work Phone: [facility] 01-16-2022 11:37-0500 Systolic blood pressure 124 mm[Hg] DO Feliciano Ga Work Phone: [facility] 01-16-2022 04:10-0500 Body weight 90.5 kg DO Feliciano Ga Work Phone: [facility] 01-13-2022 16:00-0500 Inhaled oxygen flow rate 1 L/min DO Feliciano Ga Work Phone: [facility] 01-11-2022 13:55-0500 Body height 167.64 cm DO Feliciano Ga Work Phone: [facility] 01-09-2022 14:00-0400 Diastolic blood pressure 74 mm[Hg] DO Feliciano Ga Work Phone: [facility] 01-09-2022 14:00-0400 Heart rate 67 /min DO Feliciano Ga Work Phone: [facility] 01-09-2022 14:00-0400 Inhaled oxygen flow rate 3 L/min DO Feliciano Ga Work Phone: [facility] 01-09-2022 14:00-0400 Respiratory rate 19 /min DO Feliciano Ga Work Phone: [facility] 01-09-2022 14:00-0400 SaO2% (BldA) [Mass fraction] 99 % DO Felicianoamadou Ga Work Phone: [facility] 01-09-2022 14:00-0400 Systolic blood pressure 145 mm[Hg] DO Feliciano Tjs Work Phone: [facility] 01-09-2022 09:41-0400 Body temperature 97.2 [degF] DO Feliciano Ga Work Phone: [facility] 01-09-2022 09:38-0400 Body height 167.64 cm DO Feliciano Ga Work Phone: [facility] 01-09-2022 09:38-0400 Body weight 96 kg DO Feliciano Ga Work Phone: [facility] 01-07-2022 13:45-0400 Body height 142.24 cm Feliciano Ga Other [employer] [facility] [employer] Other 01-07-2022 13:45-0400 Body mass index (BMI) [Ratio] 48.42 kg/m2 Feliciano Ga Other [employer] Other 01-07-2022 13:45-0400 Body weight 97.98 kg Feliciano Ga Other [employer] Other 01-07-2022 13:45-0400 Diastolic blood pressure 62 mm[Hg] Feliciano Spencercatie Other [employer] Other 01-07-2022 13:45-0400 Respiratory rate 16 /min Feliciano Ga Other [employer] Other 01-07-2022 13:45-0400 SaO2% (BldA) [Mass fraction] 94 % Feliciano Ga Other [employer] Other 01-07-2022 13:45-0400 Systolic blood pressure 122 mm[Hg] Feliciano Ga Other [employer] Other 10-12-2021 09:00-0400 Body height Feliciano Ga Other [employer] Other 10-12-2021 09:00-0400 Body mass index (BMI) [Ratio] 32.83 kg/m2 Felicianoamadou Spencercatie Other [employer] Other 10-12-2021 09:00-0400 Body weight 92.26 kg Feliciano Harmeet Other [employer] Other 10-12-2021 09:00-0400 Diastolic blood pressure 54 mm[Hg] Feliciano Ga Other [employer] Other 10-12-2021 09:00-0400 Respiratory rate 16 /min Feliciano Ga Other [employer] Other 10-12-2021 09:00-0400 SaO2% (BldA) [Mass fraction] 95 % Feliciano Ga Other [employer] Other 10-12-2021 09:00-0400 Systolic blood pressure 110 mm[Hg] Feliciano Ga Other [employer] Other 09-11-2021 10:00-0400 Body height Feliciano Harmeet Other [employer] Other 09-11-2021 10:00-0400 Diastolic blood pressure 52 mm[Hg] Feliciano Spencers Other [employer] Other 09-11-2021 10:00-0400 Respiratory rate 16 /min Feliciano Spencers Other [employer] Other 09-11-2021 10:00-0400 SaO2% (BldA) [Mass fraction] 96 % Feliciano Spencers Other [employer] Other 09-11-2021 10:00-0400 Systolic blood pressure 102 mm[Hg] Feliciano Ga Other [facility] [employer] Other 08-31-2021 12:00-0400 Body height Feliciano Ga Other [facility] [employer] Other 08-31-2021 12:00-0400 Diastolic blood pressure 70 mm[Hg] Feliciano Ga Other [facility] [employer] Other 08-31-2021 12:00-0400 Systolic blood pressure 130 mm[Hg] Feliciano Ga Other [facility] [employer] Other 08-04-2021 14:17-0400 Body height 167.64 cm Feliciano Ga Work Phone: [facility] [employer] 250 DO Work Phone: 08-04-2021 14:17-0400 Body mass index (BMI) [Ratio] 33.09 kg/m2 Feliciano Ga Work Phone: [facility] [employer] 250 DO Work Phone: 08-04-2021 14:17-0400 Body surface area Derived from formula 2.02 m2 Feliciano Ga Work Phone: [facility] [employer] 250 DO Work Phone: 08-04-2021 14:17-0400 Body weight 92.99 kg Feliciano Ga Work Phone: [facility] [employer] 250 DO Work Phone: 08-04-2021 14:17-0400 Diastolic blood pressure 56 mm[Hg] Feliciano Ga Work Phone: [facility] [employer] 250 DO Work Phone: 08-04-2021 14:17-0400 Heart rate 54 /min Feliciano Ga Work Phone: [facility] [employer] 250 DO Work Phone: 08-04-2021 14:17-0400 Systolic blood pressure 108 mm[Hg] Feliciano Ga Work Phone: [facility] [employer] 250 DO Work Phone: 01-19-2021 09:30-0500 Body height Feliciano Ga Other [employer] Other 01-19-2021 09:30-0500 Body mass index (BMI) [Ratio] 33.67 kg/m2 Feliciano Ga Other [employer] Other 01-19-2021 09:30-0500 Body weight 94.62 kg Feliciano Ga Other [employer] Other 01-19-2021 09:30-0500 Diastolic blood pressure 62 mm[Hg] Feliciano Ga Other [employer] Other 01-19-2021 09:30-0500 Respiratory rate 16 /min Feliciano Ga Other [employer] Other 01-19-2021 09:30-0500 SaO2% (BldA) [Mass fraction] 96 % Feliciano Ga Other [employer] Other 01-19-2021 09:30-0500 Systolic blood pressure 116 mm[Hg] Feliciano Ga Other [employer] Other 01-05-2021 15:22-0400 Body height 167.64 cm Feliciano Ga Work Phone: [facility] 250 DO Work Phone: 01-05-2021 15:22-0400 Body mass index (BMI) [Ratio] 33.25 kg/m2 Feliciano Ga Work Phone: [facility] 250 DO Work Phone: 01-05-2021 15:22-0400 Body surface area Derived from formula 2.03 m2 Feliciano Ga Work Phone: [facility] 250 DO Work Phone: 01-05-2021 15:22-0400 Body weight 93.44 kg Feliciano Ga Work Phone: [facility] 250 DO Work Phone: 01-05-2021 15:22-0400 Diastolic blood pressure 84 mm[Hg] Feliciano Ga Work Phone: [facility] 250 DO Work Phone: 01-05-2021 15:22-0400 Heart rate 56 /min Feliciano Ga Work Phone: [facility] 250 DO Work Phone: 01-05-2021 15:22-0400 Systolic blood pressure 126 mm[Hg] Feliciano Ga Work Phone: [facility] 250 DO Work Phone: Encounters Encounter Date Encounter Type Care Provider Facility Start: 09-21-2023 End: 09-21-2023 ambulatory DO Feliciano Ga Work Phone: [facility] Work Phone: Start: 09-21-2023 End: 09-21-2023 Patient encounter procedure DO Feliciano Ga Work Phone: [facility] Work Phone: Start: 09-12-2023 End: 09-12-2023 Patient encounter procedure DO Feliciano Ga Work Phone: [facility] [place] Work Phone: Start: 09-12-2023 End: 09-12-2023 ambulatory DO Feliciano Ga Work Phone: [facility] Work Phone: Start: 07-19-2023 End: 07-19-2023 Patient encounter procedure DO Feliciano Ga Work Phone: [facility] [place] Work Phone: Start: 07-19-2023 End: 07-19-2023 ambulatory Feliciano Ga Facility:[facility] Start: 07-13-2023 End: 07-13-2023 ambulatory [facility] Start: 07-13-2023 End: 07-13-2023 Office outpatient visit 25 minutes [facility] Work Phone: [facility] Comment on above: Chronic atrial fibri llation (Multi); Essential hypertension, benign; Heart failure, NYHA class 2 (Multi); Hyperlipidemia, unspecified hyperlipidemia type Start: 04-18-2023 End: 04-19-2023 ambulatory Diana Price MD Facility:[facility] Start: 04-04-2023 End: 04-05-2023 ambulatory Diana Price MD Facility:[facility] Start: 03-18-2023 End: 03-18-2023 ambulatory Feliciano Ga Other [employer] Other Start: 03-18-2023 Office outpatient vi sit 25 minutes Feliciano Ga [facility] [place] Start: 03-14-2023 End: 03-15-2023 ambulatory Diana Price MD Facility:[facility] Start: 01-10-2023 End: 01-11-2023 ambulatory Diana Price MD Facility:[facility] Start: 12-31-2022 End: 12-31-2022 ambulatory Feliciano Ga Other [employer] Other Start: 12-31-2022 Tele[facility] encounter [facility] Start: 12-06-2022 End: 12-06-2022 ambulatory Feliciano Ga Other [employer] Other Start: 12-06-2022 Telephone encounter [facility] Start: 11-30-2022 End: 11-30-2022 ambulatory Feliciano Ga Other [employer] Other Start: 11-30-2022 Telephone encounter Feliciano Ga [facility] Start: 10-14-2022 ambulatory DOMINIC WALLACE . Facili ty:[facility] Start: 09-15-2022 End: 09-15-2022 ambulatory Feliciano Ga Other [employer] Other Start: 09-15-2022 Office outpatient vi sit 15 minutes [facility] Start: 09-10-2022 Chart Update Feliciano Ga Work Phone: [facility] 250 DO Work Phone: Start: 09-08-2022 Telephone encounter [facility] Start: 09-08-2022 End: 09-08-2022 ambulatory DO Feliciano Ga Work Phone: [facility] Work Phone: Start: 09-08-2022 End: 09-08-2022 Patient encounter procedure DO Feliciano Ga Work Phone: [facility] [place] Work Phone: Start: 08-30-2022 Rx Renewal Feliciano Ga Work Phone: [facility] DO Work Phone: Start: 07-08-2022 End: 07-09-2022 ambulatory YANNI RODRÍGUEZROHITJUANShelia . Facility:H1 Start: 07-07-2022 Office outpatient vi sit 15 minutes Feliciano Ga Work Phone: [facility] 250 DO Work Phone: Start: 07-07-[address] Feliciano Ga Facility: Start: 06-07-2022 End: 06-07-2022 ambulatory Feliciano Ga Other [employer] Other Start: 06-07-2022 Office outpatient vi sit 25 minutes Feliciano Ga [facility] [place] Start: 06-01-2022 End: 06-01-2022 ambulatory Feliciano Ga Other [employer] Other Start: 06-01-2022 Telephone encounter Feliciano Ga [facility] [place] Start: 05-13-2022 End: 05-14-2022 ambulatory EDILMA MANDEL Facility:H1 Start: 05-11-2022 End: 05-11-2022 ambulatory Feliciano Ga Other [place] [employer] Other Start: 05-11-2022 Telephone encounter Feliciano Ga [facility] [place] Start: 04-15-2022 End: 04-16-[address] TROY BRAMBILA . Facility:H1 Start: 04-12-2022 End: 04-12-2022 ambulatory DO Feliciano Ga Work Phone: [facility] Work Phone: Start: 04-12-2022 End: 04-12-2022 Discharged Recurring DO Feliciano Ga Work Phone: [facility] [place] Work Phone: Start: 03-30-2022 End: 03-30-[address] TROY BRAMBILA . Facility: Start: 03-29-2022 Rx Renewal Feliciano Ga Work Phone: [facility] 250 DO Work Phone: Start: 03-19-2022 ambulatory Marv Urena Facility : Start: 03-15-2022 ambulatory Ms. Mcdaniels Raegan Gomez Facility: Start: 03-15-2022 Patient encounter procedure Feliciano Ga Work Phone: [facility] 250 DO Work Phone: Start: 03-15-2022 Chart Update Feliciano Ga Work Phone: [facility] 250 DO Work Phone: Start: 03-11-2022 Registered Recurring DO Feliciano Ga Work Phone: [facility] [place] Work Phone: Start: 03-11-2022 End: 03-11-2022 ambulatory DO Feliciano Ga Work Phone: [facility] Work Phone: Start: 03-11-2022 End: 03-11-2022 Patient encounter procedure DO Feliciano Ga Work Phone: [facility] [place] Work Phone: Start: 03-10-2022 FUV, Provider: Enedelia Mix, Status: Pen, Time: 2:30 PM Feliciano Ga Work Phone: [facility] 250 DO Work Phone: Start: 03-10-2022 Office outpatient vi sit 25 minutes Feliciano Ga Work Phone: [facility] 600 DO Work Phone: Start: 03-10-2022 Patient encounter procedure Feliciano Ga Work Phone: [facility] 250 DO Work Phone: Start: 03-10-2022 ambulatory Ms. Enedelia Gomez Facility: Start: 03-09-2022 End: 03-09-2022 ambulatory Feliciano Ga Other [employer] Other Start: 03-09-2022 Office outpatient vi sit 15 minutes Feliciano Ga [facility] Start: 03-04-2022 End: 03-04-2022 ambulatory Feliciano Ga Other [employer] Other Start: 03-04-2022 Telephone encounter Feliciano Ga [facility] Start: 03-03-2022 Rx Renewal Feliciano Ga Work Phone: [facility] 250 DO Work Phone: Start: 03-03-2022 End: 03-03-2022 ambulatory Feliciano Ga Other [employer] Other Start: 03-03-2022 Telephone encounter Feliciano Ga [facility] Start: 02-18-2022 End: 02-19-[address] TROY BRAMBILA . Facility: Start: 02-15-2022 Rx Renewal Feliciano Ga Work Phone: [facility] 250 DO Work Phone: Start: 02-09-2022 End: 02-09-2022 ambulatory Feliciano Ga Other [employer] Other Start: 02-09-2022 Office outpatient vi sit 25 minutes Feliciano Ga [facility] Start: 01-13-2022 End: 01-13-2022 ambulatory Feliciano Ga Other [employer] Other Start: 01-13-2022 Telephone encounter Feliciano Ga [facility] Start: 01-12-[address] Feliciano Ga Facility:[id number] Start: 01-11-2022 ambulatory Marv Urena Facility :[id number] Start: 01-10-[address] Feliciano Ga Facility:[id number] Start: 01-09-2022 End: 01-16-2022 Evaluation and management of inpatient DO Feliciano Ga Work Phone: [facility] [place] [facility] Start: 01-07-2022 End: 01-07-2022 ambulatory Feliciano Ga Other [employer] Other Start: 01-07-2022 Office outpatient vi sit 25 minutes Feliciano Ga [facility] Start: 12-25-2021 End: 12-25-2021 ambulatory Feliciano Ga Other [employer] Other Start: 12-25-2021 Telephone encounter Feliciano Ga [facility] Start: 12-17-2021 End: 12-18-[address] TROY BRAMBILA . Facility:H1 Start: 12-17-2021 End: 12-17-2021 ambulatory DO Feliciano Ga Work Phone: [facility] Work Phone: Start: 12-17-2021 End: 12-17-2021 Patient encounter procedure DO Feliciano Ga Work Phone: [facility] [place] Start: 12-01-2021 End: 12-01-[address] TROY BRAMBILA . Facility:H1 Start: 11-12-2021 End: 11-13-[address] NELSY GA Facility:H1 Start: 10-12-2021 End: 10-12-2021 ambulatory Feliciano Ga Other [employer] Other Start: 10-12-2021 Office outpatient vi sit 15 minutes Feliciano Ga [facility] [place] Start: 09-28-2021 End: 09-28-2021 ambulatory Feliciano Ga Other [employer] Other Start: 09-28-2021 Telephone encounter Feliciano Ga [facility] [place] Start: 09-28-2021 End: 09-28-2021 Discharged Recurring DO Feliciano Ga Work Phone: [facility] [place] Start: 09-11-2021 End: 09-11-2021 ambulatory Feliciano Ga Other [employer] Other Start: 09-11-2021 Nursing evaluation o f patient and report Feliciano Ga [facility] Start: 09-10-2021 Telephone encounter Feliciano Ga [facility] Start: 09-10-2021 End: 09-11-[address] NELSY GA [place] [employer] Other Start: 09-04-2021 End: 09-04-2021 ambulatory Feliciano Ga Other [place] [employer] Other Start: 09-04-2021 Telephone encounter Feliciano Ga [facility] Start: 08-31-2021 End: 08-31-2021 ambulatory Feliciano Ga Other [employer] Other Start: 08-31-2021 Office outpatient vi sit 25 minutes Feliciano Ga [facility] [place] Start: 08-17-2021 End: 08-18-[address] TROY BRAMBILA . Facility: Start: 08-13-2021 End: 08-14-[address] TROY BRAMBILA . Facility: Start: 08-04-2021 Office outpatient vi sit 15 minutes Feliciano Ga Work Phone: [facility] 250 DO Work Phone: Start: 08-04-[address] Feliciano Ga Facility: Start: 07-28-2021 End: 07-28-[address] TROY BRAMBILA . Facility:H1 Start: 05-25-2021 End: 05-25-2021 ambulatory Feliciano Ga Other [place] [employer] Other Start: 05-25-2021 Telephone encounter Feliciano Ga [facility] Start: 03-23-2021 Rx Renewal Feliciano Ga Work Phone: [facility] 250 DO Work Phone: Start: 03-11-2021 End: 03-11-2021 ambulatory Feliciano Ga Other [facility] [employer] Other Start: 03-11-2021 Telephone encounter Feliciano Ga [facility] Start: 03-05-2021 End: 03-05-2021 ambulatory Feliciano Ga Other [facility] [employer] Other Start: 03-05-2021 Telephone encounter Feliciano Ga [facility] Start: 02-17-2021 Rx Renewal Feliciano Ga Work Phone: [facility] 250 DO Work Phone: Start: 01-19-2021 End: 01-19-2021 ambulatory Feliciano Ga Other [facility] [employer] Other Start: 01-19-2021 Office outpatient vi sit 25 minutes Feliciano Ga [facility] Start: 01-16-2021 Rx Renewal Feliciano Ga Work Phone: [facility] 250 DO Work Phone: Start: 01-13-2021 Rx Renewal Feliciano Ga Work Phone: [facility] [place] [facility] [place] [address] [place] Work Phone: Start: 01-05-2021 Office outpatient vi sit 15 minutes Feliciano Ga Work Phone: [facility] 250 DO Work Phone: Start: 01-05-2021 Patient encounter procedure Feliciano Ga Work Phone: [facility] 250 DO Work Phone: Start: 12-15-2016 End: 12-16-2016 Ambulatory Dontrell Bhupinder Rosenhayn Facility[place] Procedures Date Procedure Procedure Detail Performing Clinician Start: 07-13-2023 Alanine aminotransfe rase [Enzymatic activity/volume] in Serum or Plasma IRINEO MCINTYRE Start: 07-13-2023 Aspartate aminotrans ferase [Enzymatic activity/volume] in Serum or Plasma IRINEO MCINTYRE Start: 07-13-2023 Lipid panel IRINEO HERRON Start: 07-13-2023 Natriuretic peptide B [Mass/volume] in Blood IRINEO MCINTYRE Start: 07-13-2023 Basic metabolic 2000 panel - Serum or Plasma IRINEO MCINTYRE Start: 01-14-2022 CT of right hip DO [...] Feliciano Ga Work Phone: Comment on above: [facility]; Arthroplasty of knee Feliciano Ga Work Phone: Comment on above: 2016 and 2020; Arthroscopy of shoulder Daniella Ga Work Phone: Cardiac catheterization Daniella Ga Work Phone: Epidural steroid injection Ange Myers [employer] Work Phone: Procedure on back Feliciano Trejo ns Work Phone: Procedure on neck Feliciano Trejo ns Work Phone: Procedure on prostate Feliciano P [employer] Work Phone: Prosthetic arthropla sty of the hip Feliciano Ga Work Phone: Total replacement of hip Edmond an P Tjcatie Work Phone: Urine culture DO Feliciano Ga Work Phone: Plan of Treatment Date Care Activity Detail Author Start: 07-18-2024 End: 07-18-2024 Patient encounter procedure 07/18/2024 10:00 AM EDT Office Visit [facility] [address] [place] [id number] Irineo Mcintyre, [address] [place] [address] [facility] Start: 07-13-2023 End: 07-12-2024 Alanine aminotransferase [Enzymatic activity/volume] in Serum or Plasma by With P-5'-P Alanine Aminotransferase Lab Routine Hyperlipidemia, unspecified hyperlipidemia type Expected: 07/13/2023 (Approximate), Expires: 07/12/2024 [facility] Work Phone: Comment on above: Expected: 07/13/2023 (Approximate), Expi res: 07/12/2024 Start: 07-13-2023 End: 07-12-2024 Aspartate aminotransferase [Enzymatic activity/volume] in Serum or Plasma by With P-5'-P Aspartate Aminotransferase Lab Routine Hyperlipidemia, unspecified hyperlipidemia type Expected: 07/13/2023 (Approximate), Expires: 07/12/2024 [facility] Work Phone: Comment on above: Expected: 07/13/2023 (Approximate), Expi res: 07/12/2024 Start: 07-13-2023 End: 07-12-2024 Basic metabolic 2000 panel - Serum or Plasma Basic Metabolic Panel Lab Routine Chronic atrial fibrillation (Multi) Essential hypertension, benign Heart failure, NYHA class 2 (Multi) Hyperlipidemia, unspecified hyperlipidemia type Expected: 07/13/2023 (Approximate), Expires: 07/12/2024 [facility] Service [facility] Work Phone: Comment on above: Expected: 07/13/2023 (Approximate), Expi res: 07/12/2024 Start: 07-13-2023 End: 07-12-2024 Lipid 1996 panel - Serum or Plasma Lipid Panel Lab Routine Hyperlipidemia, unspecified hyperlipidemia type Expected: 07/13/2023 (Approximate), Expires: 07/12/2024 [facility] Work Phone: Comment on above: Expected: 07/13/2023 (Approximate), Expi res: 07/12/2024 Start: 07-13-2023 End: 07-12-2024 Natriuretic peptide B [Mass/volume] in Blood B-Type Natriuretic Peptide Lab Routine Heart failure, NYHA class 2 (Multi) Expected: 07/13/2023 (Approximate), Expires: 07/12/2024 [facility] Work Phone: Comment on above: Expected: 07/13/2023 (Approximate), Expi res: 07/12/2024 Start: 07-13-2023 FUV, Provider: Irineo Mcintyre, Status: Pen, Time: 9:40 AM FUV, Provider: Irineo Mcintyre, Status: Pen, Time: 9:40 AM [facility] 250 DO Work Phone: Start: 11-05-2022 COVID-19 Vaccine ( season) COVID-19 Vaccine ( season) [facility] Start: 07-07-2022 FUV, Provider: Irineo Mcintyre, Status: Pen, Time: 9:20 AM FUV, Provider: Irineo Mcintyre, Status: Pen, Time: 9:20 AM -[facility] 250 DO Work Phone: Start: 03-15-2022 HOLTER MON, Provider: LEVAR MARES CREW CLERK [id number], Status: Pen, Time: 10:30 AM HOLTER MON, Provider: LEVAR MARES CREW CLERK [id number], Status: Pen, Time: 10:30 AM -[facility] 250 DO Work Phone: Start: 03-10-2022 FUV, Provider: Enedelia Mix, Status: Pen, Time: 2:30 PM FUV, Provider: Enedelia Mix, Status: Pen, Time: 2:30 PM -[facility] 250 DO Work Phone: Start: 01-16-2022 [facility] Start: 01-12-2022 Referral to infectious diseases physician [facility] Start: 01-09-2022 Referral to neurologist [facility] Start: 01-09-2022 Referral to Psychiatric Nursing Aide [facility] Start: 01-09-2022 Hospital admission [facility] Start: 01-09-2022 [facility] Start: 07-08-2021 FUV, Provider: Irineo Mcintyre, Status: Pen, Time: 9:50 AM [facility] 250 DO Work Phone: Start: 06-16-2021 FUV, Provider: Irineo Mcintyre, Status: Pen, Time: 9:30 AM FUV, Provider: Irineo Mcintyre, Status: Pen, Time: 9:30 AM [facility] [address] DO Work Phone: Start: 06-02-2016 Pneumococcal Vaccine: 65+ Years (2 of 2 - PPSV23 or PCV20) Pneumococcal Vaccine: 65+ Years (2 of 2 - PPSV23 or PCV20) [facility] Start: 2001 RSV patients and/or patients aged 60+ years (1 - 1-dose 60+ series) RSV patients and/or patients aged 60+ years (1 - 1-dose 60+ series) [facility] Start: 07-16-1991 Zoster Vaccines (1 of 2) Zoster Vaccines (1 of 2) [facility] Start: 07-16-1963 DTaP/Tdap/Td Vaccines (1 - Tdap) DTaP/Tdap/Td Vaccines (1 - Tdap) [facility] Start: 07-16-1959 Diabetes mellitus screening Diabetes Screening [facility] Start: 1941 Lipid panel Lipid Panel [facility] Start: 1941 Medicare Annual Wellness Visit Medicare Annual Wellness Visit (AWV) [facility] Start: 1941 Thyroid stimulating hormone measurement TSH Level [facility] Anion gap measurement [facility] Work Phone: Bacteria identified in Urine by Culture Urine Culture [facility] Basophil count [facility] Work Phone: Basophil percent differential count [facility] Work Phone: Blood culture for bacteria, including anaerobic screen Blood Culture [facility] Calcium [Mass/volume ] in Serum or Plasma [facility] Work Phone: Carbon dioxide, tota l [Moles/volume] in Serum or Plasma [facility] Work Phone: Chloride [Moles/volu me] in Serum or Plasma [facility] Work Phone: Creatinine and Glome rular filtration rate.predicted panel - Serum, Plasma or Blood [facility] Work Phone: Eosinophil percent differential count [facility] Work Phone: Eosinophils [#/volum e] in Blood [facility] Work Phone: Erythrocyte mean corpuscular volume determination [facility] Work Phone: Erythrocytes [#/volu me] in Blood [facility] Work Phone: Glucose [Mass/volume ] in Serum or Plasma [facility] Work Phone: Hematocrit [Volume Fraction] of Blood [facility] Work Phone: Hemoglobin [Mass/vol ume] in Blood [facility] Work Phone: Hemoglobin distribut ion, width determination [facility] Work Phone: Leukocytes [#/volume ] in Blood [facility] Work Phone: Lymphocyte count [facility] Work Phone: Lymphocyte percent differential count [facility] Work Phone: Mean corpuscular hemoglobin concentration determination [facility] Work Phone: Mean corpuscular hemoglobin determination [facility] Work Phone: Measurement of renal function [facility] Work Phone: Monocyte count [facility] Work Phone: Monocyte percent differential count [facility] Work Phone: Neutrophil count [facility] Work Phone: Neutrophil percent differential count [facility] Work Phone: Patient referral [facility] Work Phone: Platelet mean volume determination [facility] Work Phone: Platelets [#/volume] in Blood [facility] Work Phone: Potassium [Moles/vol ume] in Serum or Plasma [facility] Work Phone: Sodium [Moles/volume ] in Serum or Plasma [facility] Work Phone: Urea nitrogen [Mass/volume] in Serum or Plasma [facility] Work Phone: Immunizations Immunization Date Immunization Notes Care Provider Fa [facility] 12-17-2022 influenza virus vaccine, unspecified formulation DO Feliciano Ga Work Phone: [facility] 12-17-2022 influenza, high dose seasonal, preservative-free Feliciano Ga Other [facility] 12-24-2021 influenza, seasonal, injectable Feliciano Ga Other [facility] 12-24-2021 COVID-19 Moderna (BIvalent) Feliciano Ga Other [facility] 12-24-2021 Fluzone High-Dose Quadrivalent 0.7 ML Intramuscular Suspension Prefilled Syringe Feliciano Ga Work Phone: [facility] 02-18-2021 Moderna COVID-19 Vaccine 100 MCG/0.5ML Intramuscular Suspension Feliciano Ga Work Phone: [facility] 05-28-2020 Moderna COVID-19 Vaccine 100 MCG/0.5ML Intramuscular Suspension Feliciano Ga Work Phone: [facility] 05-05-2020 COVID-19 Vaccine Moderna - Documentation Purposes Only Feliciano Ga Other [facility] 04-30-2020 Moderna COVID-19 Vaccine 100 MCG/0.5ML Intramuscular Suspension Feliciano Ga Work Phone: [facility] 04-14-2020 Moderna COVID-19 Vaccine 100 MCG/0.5ML Intramuscular Suspension Feliciano Ga Work Phone: [facility] 12-22-2019 Fluzone High-Dose Quadrivalent 0.7 ML Intramuscular Suspension Prefilled Syringe Felicianoamadou Ga Work Phone: [facility] 12-06-2019 influenza, seasonal, injectable Feliciano Ga Work Phone: [facility] 11-22-2018 influenza, seasonal, injectable Feliciano Ga Other [facility] 11-20-2018 Seasonal trivalent influenza vaccine, adjuvanted, preservative free Feliciano Ga Work Phone: [facility] 11-05-2018 influenza virus vaccine, unspecified formulation [facility] Work Phone: 12-06-2017 influenza, high dose seasonal, preservative-free Feliciano P [employer] Work Phone: [facility] 12-05-2017 influenza, seasonal, injectable Feliciano Ga Other [facility] 11-05-2017 influenza virus vaccine, unspecified formulation Feliciano P [employer]js Work Phone: [facility] [employer] 250 DO Work Phone: 04-07-2016 influenza virus vaccine, unspecified formulation Feliciano P [employer]js [facility] Work Phone: 04-07-2016 pneumococcal conjuga te vaccine, 13 valent Feliciano P Kuns Work Phone: -[facility] [address] DO Work Phone: 01-24-2012 Kenalog 40/Xylocaine Feliciano glaser Other [facility] [employer] Other Payers Date Payer Category Payer Medicare [id number] 2011 Unknown 2006 Medicare 1959 [facility] [id number] 1959 Medicare [id number] 2.1 [id number] 1941 Unknown [id number] 2.16. 840.1.238329.3.579.2.356 1941 Unknown [id number] 2.16. 840.1.444812.3.579.2.356 1941 Unknown [id number] 2.16. 840.1.724132.3.579.2.356 1941 Unknown [id number] 2.16. 840.1.958443.3.579.2.356 1941 Unknown [id number] 2.16. 840.1.359264.3.579.2.356 1941 Unknown [id number] 2.16. 840.1.568364.3.579.2.356 1941 Unknown [id number] 2.16. 840.1.544506.3.579.2.356 1941 Unknown [id number] 2.16. 840.1.627122.3.579.2.356 1941 Unknown [id number] 2.16. 840.1.181378.3.579.2.356 1941 Unknown [id number] 2.16.84 0.1.853661.3.579.2.593 1941 Unknown [id number] 2.16.84 0.1.619565.3.579.2.593 1941 Unknown [id number] 2.16.84 0.1.154804.3.579.2.593 1941 Unknown [id number] 2.16.84 0.1.505477.3.579.2.593 1941 Unknown [id number] 2.16.84 0.1.810169.3.579.2.593 1941 Unknown [id number] 2.16.84 0.1.334190.3.579.2.593 1941 Unknown [id number] 2.16.84 0.1.901002.3.579.2.593 1941 Unknown [id number] 2.16.84 0.1.083787.3.579.2.593 1941 Unknown [id number] 2.16.84 0.1.786518.3.579.2.593 1941 Unknown [id number] 2.16.84 0.1.454420.3.579.2.593 1941 Unknown [id number] 2.16.84 0.1.810109.3.579.2.593 1941 Unknown [id number] 2.16.84 0.1.361290.3.579.2.593 1941 Unknown [id number] 2.16.84 0.1.108613.3.579.2.593 1941 Unknown [id number] 2.16. 840.1.276701.3.579.2.196 1941 Unknown [id number] 2.16. 840.1.178189.3.579.2.196 1941 Unknown [id number] 2.16. 840.1.479569.3.579.2.196 1941 Unknown [id number] 2.16. 840.1.313986.3.579.2.196 1941 Unknown [id number] 2.16.8 40.1.950612.3.579.2.1244 Self-pay Self Pay [id number] Social History Date Type Detail Facility Start: 07-13-2023 Daily alcohol use Daily alcohol use -[facility] [address] DO Work Phone: Comment on above: 1-2 beers; Coffee 2 cups daily; Quit smoking in 1979 ; Start: 07-13-2023 End: 03-07-1989 Sex Assigned At [facility] [employer] Other Start: 12-26-2019 End: 09-21-2023 Tobacco smoking status NHIS Ex-smoker (finding) [facility] Start: 1940 Sex Assigned At Male F [facility] End: 03-07-1979 History of tobacco use Current smoker [facility] Work Phone: End: 03-07-1979 History of tobacco use Cigarette Smoker [facility] Work Phone: Start: 07-13-2023 Tobacco use and exposure Smokeless tobacco non-user [facility] Work Phone: Start: 07-13-2023 Alcoholic beverage intake Current drinker of alcohol (finding) [facility] Work Phone: Start: 1940 [facility]: Start: 07-03-2023 End: 07-13-2023 Exposure to SARS-CoV-2 (event) Not sure [facility] Medical Equipment Procedure Code Equipment Code Equipment Origin al Text Equipment Identifier Dates Arthroplasty, knee, total, minimally invasive ART SURF LEFT 11MM 10-11 FDA Start: 11-05-2019 Arthroplasty, knee, total, minimally invasive Orthopaedic cement, non-medicated [id number] FDA Start: 11-05-2019 Arthroplasty, knee, total, minimally invasive Uncoated knee femur prosthesis [id number] FDA Start: 11-05-2019 Arthroplasty, knee, total, minimally invasive Uncoated knee tibia prosthesis, metallic [id number] FDA Start: 11-05-2019 Arthroplasty, knee, total, minimally invasive Polyethylene patella prosthesis [id number] FDA Start: 11-05-2019 Arthroplasty, knee, total, minimally [...] status Patient is Pro gressing Toward Baseline [facility] Work Phone: Mental Status Date Assessment Result Facility 01-16-2022 Cognitive function Cognitive Sta tus Patient at Baseline [facility] Work Phone: Clinical Notes 05-23-2006 to 07-13-2023 Irineo Mcintyre DO - 07/13/2023 9:40 AM EDTPatient Instructions Note Date & Type Note Facility 07-13-2023 History of Present illness Narrative Subjective Irineo Jadynroel is a 82 y.o. male Chief Complaint Annual Exam 82-year-old gentleman returns for follow-up. He is doing well from a cardiovascular standpoint he is debilitated by his significant osteoarthritis, recent peripheral nerve/ablations performed at [facility] this past year. He has persistent edema unchanged. He has a history of nonischemic cardiomyopathy with mild left ventricular dysfunction, atrial fibrillation, borderline sick sinus syndrome with no pacemaker and the above-mentioned arthritis. He has right greater than left chronic edema that is unchanged due to history of prior knee replacements, hip replacements and back surgery. Heart catheterization from 2019 revealed minimal coronary disease, follow-up imaging revealed improved ejection fraction of 50%. He has not had any hospitalizations for heart failure. Recommendations, obtain electrolytes, BMP, continue current therapies, follow-up in 1 year Review of Systems All other systems reviewed and are negative. Vitals: 07/13/23 0957 BP: 142/86 BP Location: Left arm Patient Position: Sitting Pulse: 60 Weight: 83.7 kg (184 lb 9.6 oz) Height: 1.676 m (5' 6 ) Objective Physical Exam Constitutional: Appearance: Normal appearance. HENT: Nose: Nose normal. Neck: Vascular: No carotid bruit. Cardiovascular: Rate and Rhythm: Normal rate. Rhythm irregular. Pulses: Normal pulses. Heart sounds: Normal heart sounds. Pulmonary: Effort: Pulmonary effort is normal. Abdominal: General: Bowel sounds are normal. Palpations: Abdomen is soft. Musculoskeletal: General: Normal range of motion. Cervical back: Normal range of motion. Right lower le+ Edema present. Left lower le+ Edema present. Skin: General: Skin is warm and dry. Neurological: General: No focal deficit present. Mental Status: He is alert. Psychiatric: Mood and Affect: Mood normal. Behavior: Behavior normal. Thought Content: Thought content normal. Judgment: Judgment normal. Allergies Fentanyl, Indomethacin, Penicillins, and Zolpidem Current Medications Current Outpatient Medications: acetaminophen (Tylenol) 325 mg tablet, Take 1 tablet (325 mg) by mouth every 6 hours if needed., Disp: , Rfl: allopurinol (Zyloprim) 300 mg tablet, Take 1 tablet (300 mg) by mouth once daily., Disp: , Rfl: atorvastatin (Lipitor) 40 mg tablet, Take 1 tablet (40 mg) by mouth once daily., Disp: , Rfl: bumetanide (Bumex) 1 mg tablet, TAKE 1 TABLET BY MOUTH EVERY DAY, Disp: 90 tablet, Rfl: 3 Eliquis 5 mg tablet, TAKE 1 TABLET TWICE DAILY, Disp: 180 tablet, Rfl: 3 eszopiclone (Lunesta) 3 mg tablet, Take 1 tablet (3 mg) by mouth as needed at bedtime., Disp: , Rfl: Klor-Con M20 20 mEq ER tablet, Take 1 tablet (20 mEq) by mouth once daily., Disp: , Rfl: levothyroxine (Synthroid, Levoxyl) 150 mcg tablet, Take 1 tablet (150 mcg) by mouth once daily., Disp: , Rfl: magnesium oxide (Mag-Ox) 400 mg (241.3 mg magnesium) tablet, TAKE 1 TABLET BY MOUTH EVERY DAY, Disp: 90 tablet, Rfl: 3 oxyCODONE-acetaminophen (Percocet) 5-325 mg tablet, Take 1 tablet by mouth 2 times a day., Disp: , Rfl: traZODone (Desyrel) 50 mg tablet, Take 1 tablet (50 mg) by mouth as needed at bedtime., Disp: , Rfl: Assessment/Plan No diagnosis found. Scribe Attestation By signing my name below, I, Tasha Shah RN , Scribe attest that this documentation has been prepared under the direction and in the presence of Irineo Mcintyre DO. Provider Attestation - Scribe documentation All medical record entries made by the Scribe were at my direction and personally dictated by me. I have reviewed the chart and agree that the record accurately reflects my personal performance of the history, physical exam, discussion and plan. documented in this encounter [facility] Work Phone: 07-13-2023 Instructions Hermilo Bell MA - 07/13/2023 9:40 AM EDT Please bring all medicines, vitamins, and herbal supplements with you when you come to the office. Prescriptions will not be filled unless you are compliant with your follow up appointments or have a follow up appointment scheduled as per instruction of your physician. Refills should be requested at the time of your visit. Fall Prevention Education Given documented in this encounter [facility] Work Phone: 03-18-2023 Evaluation note Encounter Date Diagnosis Assessment Notes Mar, Lumbar degenerative disc disease (ICD-10 - M51.36) Patient is following with pain management at [facility], had a recent branch block. He is [...] above medication. We will continue to monitor. [facility] Other 10-02-2023 Evaluation note* Encounter Date Diagnosis Assessment Notes Treatment Notes Treatment Clinical Notes Dec, Insomnia (ICD-10 - G47.00) [facility] Other 09-26-2023 Evaluation note* Encounter Date Diagnosis Assessment Notes Treatment Notes Treatment Clinical Notes Nov, Gout (ICD-10 - M10.9) [facility] Other 07-12-2023 Evaluation note* Encounter Date Diagnosis [...] the care of pain management out of [place]. States the pain is slightly improved and [...] to thin out the secretions. Rx sent [facility] Other 07-05-2023 Evaluation note* Encounter Date Diagnosis Assessment Notes Treatment Notes Treatment Clinical Notes Sep, Hyperlipidemia (ICD-10 - E78.5) Sep, Insomnia (ICD-10 - G47.00) Sep, Hypothyroidism, unspecified (ICD-10 - E03.9) [facility] Other 04-03-2023 Evaluation note* Encounter Date Diagnosis Assessment Notes Treatment Notes Treatment Clinical Notes Jun, Lumbar degenerative disc disease (ICD-10 - M51.36) I am in agreement the patient keep the above medication on hand to use sparingly for back pain and to continue following with Pain Management. The patient states he does still go to [place] trips with a group but [...] Screening for prostate cancer (ICD-10 - Z12.5) [facility] Other 03-28-2023 Evaluation note* Encounter Date Diagnosis Assessment Notes Treatment Notes Treatment Clinical Notes May, Insomnia (ICD-10 - G47.00) [facility] Other 03-07-2023 Evaluation note* Encounter Date Diagnosis Assessment Notes Treatment Notes Treatment Clinical Notes May, Atrial fibrillation (ICD-10 - I48.91) [facility] Other 02-09-2023 NoteCONSULTATION CONSULTATION DATE: 04/15/2022 HISTORY [...] in the clinic in three months' time.[id number] Evaluation note* Encounter Date Diagnosis Assessment Notes [...] wear a hat out in the sun. [facility] Other 12-29-2022 Evaluation note* Encounter Date Diagnosis Assessment Notes Treatment Notes Treatment Clinical Notes Feb, Insomnia (ICD-10 - G47.00) Feb, Hypothyroidism, unspecified (ICD-10 - E03.9) [facility] Other 12-28-2022 Evaluation note* Encounter Date Diagnosis Assessment Notes Treatment Notes Treatment Clinical Notes Feb, Insomnia (ICD-10 - G47.00) Feb, Hypothyroidism, unspecified (ICD-10 - E03.9) [facility] Other 12-15-2022 NoteCONSULTATION CONSULTATION DATE: 02/18/2022 HISTORY [...] move forward with the plan of care.[id number] Evaluation note* Encounter Date Diagnosis Assessment Notes Treatment Notes Treatment Clinical Notes Feb, Lumbar degenerative disc disease (ICD-10 - M51.36) Daughter feels that patient was doing quite well while he was getting daily PT at [facility], however now that he has home [...] upon examination, continue using the above powder. [facility] Other 11-11-2022 Progress note Author Raji [facility] January 15, 2022 4:51pm Note Date/Time January 15, 2022 4:51pm [facility] [address] [place] [address] Hospitalist Progress Note Signed Patient: Irineo Wallis Jr MR# : [id number] : 1940 Acct:[id number] Age/Sex: 81 / M Adm Date: 2 Loc: 3T Room: [address] [place] [address] Type: ADM IN Attending Dr: Raji Ennis [...] mg 01/09/22 14:41 Bisacodyl 10 Mg Supp.Rect MS 01/09/23 14:40 DAILY PRN Constipation Bisacodyl 10 [...] Propionate 1 spray 01/09/22 15:17 Fluticasone Propionate Lakeland 120 Lakeland/16 Gm Bottle NARES-BOTH 01/09/23 15:16 QHS PRN [...] Chloride 0.9 % 10 Ml Syringe IV-PUSH 11/05/23 09:37 10 ml PRN PRN Administration Flush [...] tomorrow. Documented By: Raji Ennis MD 01/15/22 5265 Signed By: <Electronically signed by Raji Ennis MD> 01/15/22 1651 [facility] Work Phone: 1(605) 766-577611-11-2022 Progress note Author Frankie Reynolds [facility] January 15, 2022 12:21pm Note Date/Time January 15, 2022 12:21pm [facility] [address] [place] [address] Infect. Disease Progress Note Signed Patient: Irineo Wallis Jr MR# : [id number] : 1940 Acct:[id number] Age/Sex: 81 / M Adm Date: 2 Loc: 3T Room: [id number] Type: ADM IN Attending Dr: Raji Ennis [...] Bisacodyl (Bisacodyl 10 Mg Supp.Rect) 10 mg MS DAILY PRN PRN Reason: Constipation Stop: 01/09/23 14:40 Bisacodyl (Bisacodyl 5 Mg Tablet.Dr) 10 mg PO DAILY PRN PRN Reason: Constipation Stop: 01/09/23 14:40 Last Admin: 01/14/22 19:57 Dose: 10 mg Bumetanide (Bumetanide 1 Mg Tablet) 1 mg PO DAILY@0800 [facility] Stop: 01/14/23 15:59 Last Admin: 01/15/22 08:46 Dose: 1 mg Docusate Sodium (Docusate 100 Mg Capsule) 100 mg PO BID [facility] Stop: 01/09/23 20:59 Last Admin: 01/15/22 08:46 Dose: 100 mg Fluticasone Propionate (Fluticasone Propionate Lakeland 120 Lak[place]/16 Gm Bottle) 1 spray NARES-BOTH QHS PRN PRN Reason: Nasal Congestion Stop: 01/09/23 15:16 Magnesium Sulfate (Magnesium Sulf 2gm-*Swfi*) 2 gm in 50 mls @ 25 mls/hr IV DAILY PRN PRN Reason: Magnesium Level < 1.5 Stop: 01/09/23 14:40 Levothyroxine Sodium (Levothyroxine 150 Mcg Tablet) 150 mcg PO DAILY@0630 [facility] Stop: 01/10/23 06:29 Last Admin: 01/15/22 06:38 [...] 3 Mg (Tablet) 3 mg PO HS [facility] Stop: 01/11/23 21:59 Last Admin: 01/14/22 21:32 Dose: 3 mg Nystatin (Nystatin 100,000 Unit/Gram Powder 15 Gm Bottle) 1 applic TOPICAL TID [facility] Stop: 01/09/23 21:59 Last Admin: 01/15/22 08:46 [...] 10 Ml Syringe) 0 ml IV-PUSH QSHIFT [facility]IN[facility] Stop: 01/09/23 21:59 Last Admin: 01/15/22 06:38 Dose: Not Given A&P - Infectious Disease Assessment/Plan (1) Fever: Code(s): R50.9 - Fever, unspecified Status: Acute Plan Antibiotics were stopped last night due to lack of infectious etiology found. Patient remains afebrile. Continue to observe off antibiotics. Patient denies any new physical complaints. We will follow him as needed Documented By: Frankie Reynolds MD 01/15/221219 Signed By: <Electronically signed by MD Frankie Reynolds> 01/15/22 1221 [facility] Work Phone: [phone]) [phone] Progress note Author Raji Ennis [facility] January 14, 2022 5:43pm Note Date/Time January 14, 2022 5:43pm [facility] [address] [place] [address] Hospitalist Progress Note Signed Patient: Irineo Wallis Jr MR# : [id number] : 1940 Acct:[id number] Age/Sex: 81 / M Adm Date: 2 Loc: Room: [address] [place] [address] Type: ADM IN Attending Dr: Raji Ennis [...] mg 01/09/22 14:41 Bisacodyl 10 Mg Supp.Rect MS 01/09/23 14:40 DAILY PRN Constipation Bisacodyl 10 [...] Propionate 1 spray 01/09/22 15:17 Fluticasone Propionate Lakeland 120 Lak[place]/16 Gm Bottle NARES-BOTH 01/09/23 15:16 QHS PRN [...] <Electronically signed by Raji Ennis MD> 01/14/221742 [facility] Work Phone: 1([phone] 153-680211-10-2022 Progress note Author Frankie Reynolds [facility] January 14, 2022 9:39am Note Date/Time January 14, 2022 9:39am [facility] [address] [place] [address] Infect. Disease Progress Note Signed Patient: Irineo Wallis Jr MR# : [id number] : 1940 Acct:[id number] Age/Sex: 81 / M Adm Date: 2 Loc: Room: [address] [place] [address] Type: ADM IN Attending Dr: Raji Ennis [...] Appearance Clear Urine pH 5.5 Ur Specific [place] 1.012 Urine Protein 30 H Urine Glucose [...] Bisacodyl (Bisacodyl 10 Mg Supp.Rect) 10 mg MS DAILY PRN PRN Reason: Constipation Stop: 01/09/23 14:40 Bisacodyl (Bisacodyl 5 Mg Tablet.Dr) 10 mg PO DAILY PRN PRN Reason: Constipation Stop: 01/09/23 14:40 Last Admin: 01/13/22 21:26 Dose: 10 mg Bumetanide (Bumetanide 1 Mg Tablet) 1 mg PO BID@0800,1600 [facility] Stop: 01/13/23 15:59 Docusate Sodium (Docusate 100 Mg Capsule) 100 mg PO BID [facility] Stop: 01/09/23 20:59 Last Admin: 01/14/22 08:03 Dose: 100 mg Fluticasone Propionate (Fluticasone Propionate Lakeland 120 Lakeland/16 Gm Bottle) 1 spray NARES-BOTH QHS PRN PRN Reason: Nasal Congestion Stop: 01/09/23 15:16 Magnesium Sulfate (Magnesium Sulf 2gm-*Swfi*) 2 gm in 50 mls @ 25 mls/hr IV DAILY PRN PRN Reason: Magnesium Level < 1.5 Stop: 01/09/23 14:40 Cefepime HCl (Maxipime) 2 gm in 50 mls @ 100 mls/hr IV Q12H [facility] Last Admin: 01/14/22 03:05 Dose: 100 mls/hr Vancomycin HCl 1.25 gm/ (Dextrose) 275 mls @ 183.333 mls/hr IV Q24H [facility] Stop: 01/13/23 18:59 Last Infusion: 01/13/22 21:17 Dose: Infused Levothyroxine Sodium (Levothyroxine 150 Mcg Tablet) 150 mcg PO DAILY@0630 [facility] Stop: 01/10/23 06:29 Last Admin: 01/14/22 05:54 Dose: 150 mcg Magnesium Hydroxide (Magnesium Hydroxide Susp 30 Ml Udc) 30 ml PO BID PRN PRN Reason: Constipation Stop: 01/09/23 14:40 Magnesium Oxide (Magnesium Oxide 400 Mg Tablet) 400 mg PO DAILY [facility] Stop: 01/10/23 08:59 Last Admin: 01/14/22 08:04 Dose: 400 mg Nitroglycerin (Nitroglycerin 0.4 Mg Tab.Subl) 0.4 mg SUBLINGUAL Q5MIN.X3 PRN PRN Reason: Chest Pain Stop: 01/09/23 14:40 Pom Eszopiclone 3 Mg (Tablet) 3 mg PO HS [facility] Stop: 01/11/23 21:59 Last Admin: 01/13/22 21:27 Dose: 3 mg Nystatin (Nystatin 100,000 Unit/Gram Powder 15 Gm Bottle) 1 applic TOPICAL TID [facility] Stop: 01/09/23 21:59 Last Admin: 01/14/22 08:04 [...] acid was within normal limits Documented By: Frankie Reynolds MD 01/14/22934 Signed By: <Electronically signed by MD Frankie Reynolds> 01/14/2287 [facility] Work Phone: [phone] 239-370211-09-2022 Progress note Author Mani Dickens [facility] January 13, 2022 6:10pm Note Date/Time January 13, 2022 8 :13am [facility] [address] [place], [place] [id number] Neurology Progress Note Signed with Addenda Patient: Irineo Wallis Jr MR# : [id number] : 1940 Acct:[id number] Age/Sex: 81 / M Adm Date: 2 Loc: Room: [address] [place] [address] Type: ADM IN Attending Dr: Raji Ennis [...] extremities * Unable to test finger-nose or ocgo-yn-ncea due to drowsiness REFLEX EXAM: * 1/4 [...] Therapy Recommendations: OT Recommendations OT Recommended Discharge Retirement Facility Location OT Recommended Services at Physical Therapy,Occupational Therapy Discharge PT Recommendations PT Recommended Discharge Retirement Facility Location PT Recommended Services at Physical [...] By: <Electronically signed by MEI Knight> 01/13/22 8966 [facility] Work Phone: [phone] Progress note Author Raji [facility] January 13, 2022 3:44pm Note Date/Time January 13, 2022 3 :27pm [facility] [address] [place] [address] Hospitalist Progress Note Signed Patient: Irineo Wallis MR# : [id number] : 1940 Acct:[id number] Age/Sex: 81 / M Adm Date: 2 Loc: 3T Room: [address] [place] [address] Type: ADM IN Attending Dr: Raji Ennis [...] mg 01/09/22 14:41 Bisacodyl 10 Mg Supp.Rect MS 01/09/23 14:40 DAILY PRN Constipation Bisacodyl 10 mg 01/09/22 14:41 01/12/22 08:22 Bisacodyl 5 Mg Tablet.Dr PO 01/09/23 14:40 10 mg DAILY PRN Administration Constipation Bumetanide 1 mg 01/13/22 16:00 Bumetanide 1 Mg Tablet PO 01/13/23 15:59 BID@0800,1600 [facility] Docusate Sodium 100 mg 01/09/22 21:00 01/13/22 09:43 Docusate 100 Mg Capsule PO 01/09/23 20:59 100 mg BID ANIBAL Administration Fluticasone Propionate 1 spray 01/09/22 15:17 Fluticasone Propionate Lak[place] 120 [place]/16 Gm Bottle NARES-BOTH 01/09/23 15:16 QHS PRN [...] Flush Sodium Chloride 0 ml 01/09/22 22:00 11/09/22 06:26 Sodium Chloride 0.9 % 10 Ml [...] signed by Raji Ennis MD> 01/13/22 1544 [facility] Work Phone: [phone] Consult note Author Frankie Reynolds [facility] January 13, 2022 10:45am Note Date/Time January 13, 2022 1 0:45am [facility] [address] [place] [address] Infect. Disease Consult Note Signed Patient: Irineo Wallis Jr MR# : [id number] : 1940 Acct:[id number] Age/Sex: 81 / M Adm Date: 2 Loc: 3T Room: [address] [place] [address] Type: ADM IN Attending Dr: Raji Ennis [...] negative unless noted below or in HPI [facility] Attestation Statement: The following information was validated with the patient. Vaccinated for COVID-19?: Yes Medical History (Updated 01/13/22 @ 10:41 by Frankie Reynolds MD) Atrial fibrillation BPH (benign prostatic [...] replacement 2015 Hx of decompressive lumbar laminectomy 2011-with tumor resection Family History Mother Alzheimers disease [...] Bisacodyl (Bisacodyl 10 Mg Supp.Rect) 10 mg MS DAILY PRN PRN Reason: Constipation Stop: 01/09/23 14:40 Bisacodyl (Bisacodyl 5 Mg Tablet.Dr) 10 mg PO DAILY PRN PRN Reason: Constipation Stop: 01/09/23 14:40 Last Admin: 01/12/22 08:22 Dose: 10 mg Bumetanide (Bumetanide 1 Mg/4 Ml Vial) 1 mg IV-PUSH BID@0800,1600 [facility] Stop: 01/13/23 07:59 Last Admin: 01/13/22 09:43 Dose: 1 mg Docusate Sodium (Docusate 100 Mg Capsule) 100 mg PO BID [facility] Stop: 01/09/23 20:59 Last Admin: 01/13/22 09:43 Dose: 100 mg Fluticasone Propionate (Fluticasone Propionate [place] 120 [place]/16 Gm Bottle) 1 spray NARES-BOTH QHS PRN PRN Reason: Nasal Congestion Stop: 01/09/23 15:16 Magnesium Sulfate (Magnesium Sulf 2gm-*Swfi*) 2 gm in 50 mls @ 25 mls/hr IV DAILY PRN PRN Reason: Magnesium Level < 1.5 Stop: 01/09/23 14:40 Cefepime HCl (Maxipime) 2 gm in 50 mls @ 100 mls/hr IV Q12H [facility] Last Admin: 01/13/22 03:07 Dose: 100 mls/hr Levothyroxine Sodium (Levothyroxine 150 Mcg Tablet) 150 mcg PO DAILY@0630 [facility] Stop: 01/10/23 06:29 Last Admin: 01/13/22 06:26 Dose: 150 mcg Magnesium Hydroxide (Magnesium Hydroxide Susp 30 Ml Udc) 30 ml PO BID PRN PRN Reason: Constipation Stop: 01/09/23 14:40 Magnesium Oxide (Magnesium Oxide 400 Mg Tablet) 400 mg PO DAILY [facility] Stop: 01/10/23 08:59 Last Admin: 01/13/22 09:43 Dose: 400 mg Nitroglycerin (Nitroglycerin 0.4 Mg Tab.Subl) 0.4 mg SUBLINGUAL Q5MIN.X3 PRN PRN Reason: Chest Pain Stop: 01/09/23 14:40 Pom Eszopiclone 3 Mg (Tablet) 3 mg PO HS [facility] Stop: 01/11/23 21:59 Last Admin: 01/12/22 22:51 Dose: 3 mg Nystatin (Nystatin 100,000 Unit/Gram Powder 15 Gm Bottle) 1 applic TOPICAL TID [facility] Stop: 01/09/23 21:59 Last Admin: 01/13/22 09:43 [...] appear consistent with acute gout. Documented By: Frankie Reynolds MD 01/13/22 1033 Signed By: <Electronically signed by MD Frankie Reynolds> 01/13/22 1045 [facility] Work Phone: [phone] Progress note Author W Be Mcintyre [facility] January 12, 2022 6:11pm Note Date/Time January 12, 2022 6 :11pm [facility] [address] [place] [address] Cardiology Progress Note Signed Patient: Irineo Wallis Jr MR# : [id number] : 1940 Acct:[id number] Age/Sex: 81 / M Adm Date: 2 Loc: Room: [address] [place] [address] Type: ADM IN Attending Dr: Raji Ennis [...] % (Auto) 76.3 Lymph % (Auto) 12.2 Elbert % (Auto) 9.1 Eos % (Auto) 1.9 Baso % (Auto) 0.5 Neut # (Auto) 7.7 Lymph # (Auto) 1.2 Elbert # (Auto) 0.9 H Eos # (Auto) [...] 2.9 Globulin (PEP) 2.4 Albumin/Globulin (PEP) 1.2 Waamr-7-Jbpyuodrq 0.4 Qmbuu-1-Whylbivjz 0.7 Beta Globulins 0.6 L Gamma Globulins 0.8 M-Franky Not observed PEP Note IgG 816 IgA 171 IgM 105 Serum Immunofixation 01/12/22 06:42 Corrected WBC Uncorrected WBC Count RBC Hgb Hct MCV MCH MCHC RDW Plt Count MPV Neut % (Auto) Lymph % (Auto) Elbert % (Auto) Eos % (Auto) Baso % (Auto) Neut # (Auto) Lymph # (Auto) Elbert # (Auto) Eos # (Auto) Baso # (Auto) Nucleated RBC % (auto) PHA Creatinine Clear Sodium Potassium Chloride Carbon Dioxide Anion Gap BUN Creatinine Est GFR ( Amer) Est GFR (Non-Af Amer) Glucose Calcium C-Reactive Prot, Quant 8.4 H Serum Total Protein Albumin (Send Out) Globulin (PEP) Albumin/Globulin (PEP) Ntgzd-3-Vzzhmptkc Lboiw-6-Ubbkyfkox Beta Globulins Gamma Globulins M-Franky PEP Note [...] signed by Bhupinder Mcintyre DO> 01/12/22 1811 [facility] Work Phone: [phone] Progress note Author Raji Ennis [facility] January 12, 2022 4:38pm Note Date/Time January 12, 2022 4 :38pm [facility] [address] [place] [address] Hospitalist Progress Note Signed Patient: Irineo Wallis Jr MR# : [id number] : 1940 Acct:[id number] Age/Sex: 81 / M Adm Date: 2 Loc: Room: [address] [place] [address] Type: ADM IN Attending Dr: Raji Ennis [...] mg 01/09/22 14:41 Bisacodyl 10 Mg Supp.Rect MS 01/09/23 14:40 DAILY PRN Constipation Bisacodyl 10 [...] Propionate 1 spray 01/09/22 15:17 Fluticasone Propionate [place] 120 [place]/16 Gm Bottle NARES-BOTH 01/09/23 15:16 QHS PRN [...] signed by Raji Ennis MD> 01/12/22 1638 [facility] Work Phone: [phone] Progress note Author Mnai Dickens [facility] January 12, 2022 4:10pm Note Date/Time January 12, 2022 8 :19am [facility] [address] [place] [address] Neurology Progress Note Signed Patient: Irineo Wallis Jr MR# : [id number] : 1940 Acct:[id number] Age/Sex: 81 / M Adm Date: 2 Loc: Room: [address] [place] [address] Type: ADM IN Attending Dr: Raji Ennis [...] extremities * Unable to test finger-nose or ojbx-tt-powo due to drowsiness REFLEX EXAM: * 1/4 [...] Therapy Recommendations: OT Recommendations OT Recommended Discharge Retirement Facility Location OT Recommended Services at Physical Therapy,Occupational Therapy Discharge PT Recommendations PT Recommended Discharge Retirement Facility Location PT Recommended Services at Physical [...] the plan of care and confirmed the DIGITAL COMPUTER SYSTEMS ANALYST note The patient is an 81-year-old man [...] signed by MD Mani Dickens> 01/12/22 1610 [facility] Work Phone: [phone] Progress note Author Raji Raymon [facility] January 11, 2022 5:04pm Note Date/Time January 11, 2022 5 :04pm [facility] [address] [place] [address] Hospitalist Progress Note Signed Patient: Irineo Wallis Jr MR# : [id number] : 1940 Acct:[id number] Age/Sex: 81 / M Adm Date: 2 Loc: 3T Room: [address] [place] [address] Type: ADM IN Attending Dr: Raji Ennis [...] mg 01/09/22 14:41 Bisacodyl 10 Mg Supp.Rect MS 01/09/23 14:40 DAILY PRN Constipation Bisacodyl 10 [...] Propionate 1 spray 01/09/22 15:17 Fluticasone Propionate [place] 120 [place]/16 Gm Bottle NARES-BOTH 01/09/23 15:16 QHS PRN [...] 01/11/22 22:00 Tablet PO 01/11/23 21:59 HS [facility] Nystatin 1 applic 01/09/22 22:00 01/11/22 15:24 [...] DVT prophylaxis Documented By: Raji Ennis MD 01/11/221656 Signed By: <Electronically signed by Raji Ennis MD> 01/11/22 2064 [facility] Work Phone: [phone]) [phone] Progress note Author Mani Dickens [facility] January 11, 2022 5:02pm Note Date/Time January 11, 2022 8 :55am [facility] [address] [place] [address] Neurology Progress Note Signed Patient: Irineo Wallis MR# : [id number] : 1940 Acct:[id number] Age/Sex: 81 / M Adm Date: 2 Loc: 3T Room: [address] [place] [address] Type: ADM IN Attending Dr: Raji Ennis [...] knee to all modalities. CEREBELLAR EXAM: * Mycwcw-ja-hgqc and alternating movements are intact and normal in bilateral upper extremities * Eava-sq-btnr and alternating movements are intact and normal [...] Therapy Recommendations: OT Recommendations OT Recommended Discharge Retirement Facility Location OT Recommended Services at Physical Therapy,Occupational Therapy Discharge PT Recommendations PT Recommended Discharge Retirement Facility Location PT Recommended Services at Physical [...] the plan of care and confirmed the DIGITAL COMPUTER SYSTEMS ANALYST note The patient is an 81-year-old man [...] <Electronically signed by MD Mani Dickens> 01/11/22 1706 [facility] Work Phone: [phone] 449-201111-07-2022 Progress note Author W Be [facility] January 11, 2022 2:09pm Note Date/Time January 11, 2022 2 :09pm [facility] [address] [place] [address] Cardiology Progress Note Signed Patient: Irineo Wallis Jr MR# : [id number] : 1940 Acct:[id number] Age/Sex: 81 / M Adm Date: 2 Loc: Room: [address] [place] [address] Type: ADM IN Attending Dr: Raji Ennis [...] % (Auto) 73.8 Lymph % (Auto) 13.7 Elbert % (Auto) 9.6 Eos % (Auto) 2.2 Baso % (Auto) 0.7 Neut # (Auto) 6.3 Lymph # (Auto) 1.2 [place]bert # (Auto) 0.8 Eos # (Auto) 0.2 [...] signed by Bhupinder Mcintyre DO> 01/11/22 1409 [facility] Work Phone: [phone]) 447-302511-06-2022 Progress note Author Dharmesh Zavala [facility] January 10, 2022 8:54pm Note Date/Time January 10, 2022 8 :54pm [facility] [address] [place] [address] Hospitalist Progress Note Signed Patient: Irineo Wallis Jr MR# : [id number] : 1940 Acct:[id number] Age/Sex: 81 / M Adm Date: 2 Loc: Room: [address] [place] [address] Type: ADM IN Attending Dr: Dharmesh Zavala DO Copies to: ~ Date of Service: 01/10/2022 Subjective Subjective Narrative: When I entered the room the patient tells me that he is getting a pain in the thighs on the top of his legs. He does mention that the people in [place] told me that was due to the [...] bradycardia with 3-second pauses. Cardiology with Dr. Urena saw the patient. Coreg and digoxin from [...] mg 01/09/22 14:41 Bisacodyl 10 Mg Supp.Rect MS 01/09/23 14:40 DAILY PRN Constipation Bisacodyl 10 mg 01/09/22 14:41 Bisacodyl 5 Mg Tablet.Dr PO 01/09/23 14:40 DAILY PRN Constipation Bumetanide 1 mg 01/09/22 15:30 01/10/22 14:42 Bumetanide 1 Mg/4 Ml Vial IV-PUSH 01/09/23 15:29 1 mg Q8H ANIBAL Administration Docusate Sodium 100 mg 01/09/22 21:00 01/10/22 08:58 Docusate 100 Mg Capsule PO 01/09/23 20:59 Not Given BID [facility] Fluticasone Propionate 1 spray 01/09/22 15:17 Fluticasone Propionate Lakeland 120 Lakeland/16 Gm Bottle NARES-BOTH 01/09/23 15:16 QHS PRN [...] <Electronically signed by Dharmesh Zavala DO> 01/10/222053 [facility] Work Phone: 1([phone]) 262-529411-06-2022 Consult note Author Vikas Mane [facility] January 10, 2022 12:35pm Note Date/Time January 10, 2022 9 :20am [facility] [address] [place] [address] Neurology Consult Note Signed Patient: Irineo Walils Jr MR# : [id number] : 1940 Acct:[id number] Age/Sex: 81 / M Adm Date: 2 Loc: Room: [address] [place] [address] Type: ADM IN Attending Dr: Dharmesh Zavala DO Copies to: DO Feliciano Pollock,DO Dharmesh Zavala DO~ HPI Consult Date: 01/10/22 Turnstile Collector: Vikas Mane DO [facility] Vaccinated for COVID-19?: Yes Medical History (Updated 01/10/22 @ 11:30 by Marv Urena MD) Atrial fibrillation BPH (benign prostatic hyperplasia) [...] Esa Cardoso M.D.01/09/2022 1:06 PM Dictation Location: RAD[facility]--12 Chest X-Ray 01/09/22 09:48 IMPRESSION: Developing groundglass parenchymal densities greater on the RIGHT. Consider pulmonary edema. Impression dictated by: Esa Cardoso M.D.01/09/2022 10:11 AM Dictation Location: [place] [address] Renal Ultrasound 01/10/22 05:00 IMPRESSION: No hydronephrosis. Impression dictated by: Esa Cardoso M.D.01/10/2022 9:07 AM Dictation Location: [place] [address] Assessment/Plan (1) Falls frequently: Assessment/Problem Details: HPI: [...] rapidly alternating movements. No limb dysmetria with bpiquv-ruuy-qhjbzz testing. DATA REVIEW: MRI lumbar spine from [...] Status: Acute Documented By: Vikas Mane DO 01/10/22911 Signed By: <Electronically signed by Vikas Mane DO> 01/10/22 1235 [facility] Work Phone: 1(481) 403-559011-06-2022 Consult note Author Marv Urena [facility] January 10, 2022 11:32am Note Date/Time January 10, 2022 1 1:32am [facility] [address] [place] [address] Cardiology Consult Note Signed Patient: Irineo Wallis Jr MR# : [id number] : 1940 Acct:[id number] Age/Sex: 81 / M Adm Date: 2 Loc: Room: [address] [place] [address] Type: ADM IN Attending Dr: Dharmesh Zavala DO Copies to: DO Marv Catalan MD, [facility] Dharmesh Zavala DO~ Cardiology HPI History of [...] He has adequate social support at home. [facility]?: Yes Medical History (Updated 01/10/22 @ 11:30 by Marv Urena MD) Atrial fibrillation BPH (benign prostatic hyperplasia) [...] x10E3/uL Lymph # (Auto) 1.0 (1.00-4.8) x10E3/uL Elbert # (Auto) 1.0 H (0.0-0.8) x10E3/uL Eos [...] R00.1 - Bradycardia, unspecified Documented By: Marv Urena MD, [facility] 2 1125 Signed By: <Electronically signed by [facility] Marv Urena> 01/10/22 1137 [facility] Work Phone: 1(347) 241-780311-05-2022 History and physical note Author Dharmesh Zavala [facility] January 09, 2022 3:30pm Note Date/Time January 09, 2022 3 :30pm [facility] [address] [place] [address] Hospitalist H&P Signed Patient: Irineo Wallis Jr MR# : [id number] : 1940 Acct:[id number] Age/Sex: 81 / M Adm Date: 2 Loc: Room: [address] [place] [address] Type: ADM IN Attending Dr: Dharmesh Zavala [...] that he had seen a urologist in [place] recently. Patient used to be on a number of prostate medications but apparently they were stopped because they are not doing what they are supposed to be doing. The patient andhis daughter have a discussion about what urology was doing for the situation without finding a specific answer. Patient also describes that he has been veryconstipated lately and takes an unspecified jrxi-rox-juzsfzq generic stool softener. His daughter does point [...] radiofrequency ablations by pain management doctor in [place]. Review of Systems Review of Systems Review of systems: 10 systems are reviewed and are negative except as mentioned elsewhere in the documentation. [facility] Vacc[facility]-19?: Yes Medical [...] % (Auto) 13.5 % (.) 01/09/22 10:36 Elbert % (Auto) 14.2 % (.) 01/09/22 10:36 Eos % (Auto) 0.1 % (.) 01/09/22 10:36 Baso % (Auto) 1.0 % (.) 01/09/22 10:36 Neut # (Auto) 4.3 x10E3/uL (1.8-7.7) 01/09/22 10:36 Lymph # (Auto) 0.8 x10E3/uL (1.00-4.8) L 01/09/22 10:36 Elbert # (Auto) 0.9 x10E3/uL (0.0-0.8) H 01/09/22 [...] A 01/09/22 12:42 Urine pH 5.5 (5.0-9.0) 11/05/22 12:42 Ur Specific [place] 1.018 (1.001-1.030) 01/09/22 12:42 Urine Protein Trace [...] Signed By: <Electronically signed by Dharmesh Zavala, DO> 01/09/22 1530 [facility] Work Phone: 1([phone]) 452-670611-03-2022 Evaluation note* Encounter Date Diagnosis Assessment Notes [...] in a week to re-evaluate the area. [facility] Other 10-21-2022 Evaluation note* Encounter Date Diagnosis Assessment Notes Treatment Notes Treatment Clinical Notes Dec, Lower extremity edema (ICD-10 - R60.0) [facility] Other 10-13-2022 NoteCONSULTATION CONSULTATION DATE: 12/17/2021 HISTORY [...] next refill, we will change it to [place]arrison 5/325 daily p.r.n. and the patient is encouraged to increase oral fluids and to continue with his stool softener on a daily basis. Heat education was discussed with the patient, as far as frequency and consistency. We will see him in three months' time, unless otherwise indicated, and all questions answered today.[id number] NoteCONSULTATION CONSULTATION DATE: 11/12/2021 HISTORY OF PRESENT [...] followed up in the office post procedure.[facility] [id number] Evaluation note* Encounter Date Diagnosis Assessment Notes [...] manage his swelling better. He voiced understanding. [facility] Other 07-25-2022 Evaluation note* Encounter Date Diagnosis Assessment Notes Treatment Notes Treatment Clinical Notes Sep, CHF (congestive heart failure) (ICD-10 - I50.9) [facility] Other 07-08-2022 Evaluation note* Encounter Date Diagnosis Assessment Notes Treatment Notes Treatment Clinical Notes Sep, CHF (congestive heart failure) (ICD-10 - I50.9) Patient is to hold bumex until re-evaluated in one month per Dr. Feliciano Ga. [facility] Other 07-07-2022 Evaluation note* Encounter Date Diagnosis Assessment Notes Treatment Notes Treatment Clinical Notes Sep, Atrial fibrillation (ICD-10 - I48.91) [facility] Other 07-01-2022 Evaluation note* Encounter Date Diagnosis Assessment Notes Treatment Notes Treatment Clinical Notes Sep, Insomnia (ICD-10 - G47.00) Sep, Gout (ICD-10 - M10.9) [facility] Other 06-27-2022 Evaluation note* Encounter Date Diagnosis [...] is in AF today. He did see family therapist a few weeks ago and is stable [...] continue with current medications at this time. [facility] Other 06-09-2022 NoteCONSULTATION CONSULTATION DATE: 08/13/2021 This [...] in three months' time unless otherwise indicated. [facility] Signed and Approved by: MONSERRAT RODARTE . 08/20/2021 16:02:00[facility]03-21-2022 Evaluation note* Encounter Date Diagnosis Assessment Notes Treatment Notes Treatment Clinical Notes May, Insomnia (ICD-10 - G47.00) [facility] Other 01-05-2022 Evaluation note* Encounter Date Diagnosis Assessment Notes Treatment Notes Treatment Clinical Notes Mar, Atrial fibrillation (ICD-10 - I48.91) [facility] Other 12-30-2021 Evaluation note* Encounter Date Diagnosis Assessment Notes Treatment Notes Treatment Clinical Notes Feb, Insomnia (ICD-10 - G47.00) [facility] Other 11-15-2021 Evaluation note* Encounter Date Diagnosis [...] Screening for prostate cancer (ICD-10 - Z12.5) [facility] Other 03-19-2007 History general Narrative - Reported* Type Description Date Medical History EKG 05-23-2006 Medical History MRI Lumbar Spine 01-13-11; [facility] Medical History 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 Medical History 01/22/14-stress test and echocar diogram at [facility] Medical History follows with urology Medical History 05/11/16 Stress Test Medical History f/u with Dr Mcintyre for CHF, A-F ib Medical History Dr Brambila pain mgmt- back spondyl olysis Medical History MUGA Stress test 06/14/16 [facility] Medical History 05/10/2018 Colonscop y due to [...] Surgical History Bilateral Cataract 2017 Surgical History NAYELY- Dr. Lezama 11/05/19 Hospitalization History [facility]- CHF, A-Fib 04/2016 [employer] [facility] [employer] Other [id number] History general Narrative - Reported* Type Description Date Medical History EKG 05-23-2006 Medical History MRI Lumbar Spine 01-13-11; [facility] Medical History 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 Medical History 01/22/14-stress test and echocar diogram at [facility] Medical History follows with urology Medical History 05/11/16 Stress Test Medical History f/u with Dr Mcintyre for CHF, A-F ib Medical History Dr Brambila pain mgmt- back spondyl olysis Medical History MUGA Stress test 06/14/16 [facility] Medical History 05/10/2018 Colonscop y due to [...] Surgical History DUANE Lezama 11/05/19 Hospitalization History [facility]- CHF, A-Fib 04/2016 [facility] Other Consult note Author Vikas Mane [facility] January 10, 2022 12:35pm Note Date/Time January 10, 2022 9 :20am [facility] [address] [place] [address] Neurology Consult Note Signed Patient: Irineo Wallis Jr MR# : [id number] : 1940 Acct:[id number] Age/Sex: 81 / M Adm Date: 2 Loc: Room: [address] [place] [address] Type: ADM IN Attending Dr: Dharmesh Zavala DO Copies to: DO Feliciano Pollock DO Kristopher L Lindbloom, DO~ HPI Consult Date: 01/10/22 Turnstile Collector: Vikas Mane DO [facility] Vacc[facility] for COVID-19?: Yes Medical History (Updated 01/10/22 @ 11:30 by Marv Urena MD) Atrial fibrillation BPH (benign prostatic hyperplasia) [...] Esa Cardoso M.D.01/09/2022 10:11 AM Dictation Location: [facility] Renal Ultrasound 01/10/22 05:00 IMPRESSION: No hydronephrosis. Impression dictated by: Esa Cardoso M.D.01/10/2022 9:07 AM Dictation Location: [facility]03 Assessment/Plan (1) Falls frequently: Assessment/Problem Details: HPI: [...] rapidly alternating movements. No limb dysmetria with gvztbr-msdo-rbesdi testing. DATA REVIEW: MRI lumbar spine from [...] signed by Vikas Mane DO> 01/10/22 1235 [facility] Work Phone: Consult note Author Marv Urena [facility] January 10, 2022 11:32am Note Date/Time January 10, 2022 1 1:32am [facility] [address] [place] [address] Cardiology Consult Note Signed Patient: Irineo Wallis Jr MR# : [id number] : 1940 Acct:[id number] Age/Sex: 81 / M Adm Date: 2 Loc: Room: [address] [place] [address] Type: ADM IN Attending Dr: Dharmesh Zavala [...] History (Updated 01/10/22 @ 11:30 by Marv Urena MD) Atrial fibrillation BPH (benign prostatic hyperplasia) [...] x10E3/uL Lymph # (Auto) 1.0 (1.00-4.8) x10E3/uL Elbert # (Auto) 1.0 H (0.0-0.8) x10E3/uL Eos [...] R00.1 - Bradycardia, unspecified Documented By: Marv Urena MD, [facility] 2 1125 Signed By: <Electronically signed by [facility]> 01/10/22 1132 [facility] Work Phone: Consult note Author Frankie Reynolds [facility] January 13, 2022 10:45am Note Date/Time January 13, 2022 1 0:45am [facility] [address] [place] [address] Infect. Disease Consult Note Signed Patient: Irineo Wallis Jr MR# : [id number] : 1940 Acct:[id number] Age/Sex: 81 / M Adm Date: 2 Loc: Room: [address] [place] [address] Type: ADM IN Attending Dr: Raji Ennis MD Copies to: MD Feliciano Giles,DO Frankie Reynolds MD~ HPI Data of Consult Consult date: [...] negative unless noted below or in HPI [facility] Attestation Statement: The following information was validated with the patient. Vaccinated for COVID-19?: Yes Medical History (Updated 01/13/22 @ 10:41 by Frankie Reynolds MD) Atrial fibrillation BPH (benign prostatic [...] Bisacodyl (Bisacodyl 10 Mg Supp.Rect) 10 mg MS DAILY PRN PRN Reason: Constipation Stop: 01/09/23 14:40 Bisacodyl (Bisacodyl 5 Mg Tablet.Dr) 10 mg PO DAILY PRN PRN Reason: Constipation Stop: 01/09/23 14:40 Last Admin: 01/12/22 08:22 Dose: 10 mg Bumetanide (Bumetanide 1 Mg/4 Ml Vial) 1 mg IV-PUSH BID@0800,1600 ANIBAL Stop: 01/13/23 07:59 Last Admin: 01/13/22 09:43 Dose: 1 mg Docusate Sodium (Docusate 100 Mg Capsule) 100 mg PO BID [facility] Stop: 01/09/23 20:59 Last Admin: 01/13/22 09:43 Dose: 100 mg Fluticasone Propionate (Fluticasone Propionate Lakeland 120 Lakeland/16 Gm Bottle) 1 spray NARES-BOTH QHS PRN PRN Reason: Nasal Congestion Stop: 01/09/23 15:16 Magnesium Sulfate (Magnesium Sulf 2gm-*Swfi*) 2 gm in 50 mls @ 25 mls/hr IV DAILY PRN PRN Reason: Magnesium Level < 1.5 Stop: 01/09/23 14:40 Cefepime HCl (Maxipime) 2 gm in 50 mls @ 100 mls/hr IV Q12H [facility] Last Admin: 01/13/22 03:07 Dose: 100 mls/hr Levothyroxine Sodium (Levothyroxine 150 Mcg Tablet) 150 mcg PO DAILY@0630 [facility] Stop: 01/10/23 06:29 Last Admin: 01/13/22 06:26 Dose: 150 mcg Magnesium Hydroxide (Magnesium Hydroxide Susp 30 Ml Udc) 30 ml PO BID PRN PRN Reason: Constipation Stop: 01/09/23 14:40 Magnesium Oxide (Magnesium Oxide 400 Mg Tablet) 400 mg PO DAILY [facility] Stop: 01/10/23 08:59 Last Admin: 01/13/22 09:43 Dose: 400 mg Nitroglycerin (Nitroglycerin 0.4 Mg Tab.Subl) 0.4 mg SUBLINGUAL Q5MIN.X3 PRN PRN Reason: Chest Pain Stop: 01/09/23 14:40 Pom Eszopiclone 3 Mg (Tablet) 3 mg PO HS [facility] Stop: 01/11/23 21:59 Last Admin: 01/12/22 22:51 Dose: 3 mg Nystatin (Nystatin 100,000 Unit/Gram Powder 15 Gm Bottle) 1 applic TOPICAL TID [facility] Stop: 01/09/23 21:59 Last Admin: 01/13/22 09:43 [...] appear consistent with acute gout. Documented By: Frankie Reynolds MD 01/13/22 1033 Signed By: <Electronically signed by MD Frankie Reynolds> 01/13/22 1045 [facility] Work Phone: Evaluation noteNo assessment information available [facility] Work Phone: Evaluwyxee noteNo InformationNort [employer]Takes Other Evaluation note* Diagnosis Onset Date Resolution Status Acute decompensated heart failure acute Acute exacerbation of chronic low back pain acute Elevated troponin acute Fall acute Hypoxemia acute [facility] Work Phone: Evaluation note* Diagnosis Onset Date Resolution Status Acute decompensated heart failure acute Acute exacerbation of chronic low back pain acute [id number] acute Acute respiratory failure with hypoxia acute [...] apnea acute Atrial fibrillation chronic Hypertension chronic [facility] Work Phone: Evaluation note* Diagnosis Chronic atrial fibrillation (Multi) Atrial fibrillation Essential hypertension, benign Heart failure, NYHA class 2 (Multi) Hyperlipidemia, unspecified hyperlipidemia type documented in this encounter [facility] Work Phone: Evaluation note* Author Mayra Ponce [facility] Authored September 21, 2023 10:2 1am The above note written by ROSALIE Perry acting as human recorder, note dictated by Dr. Feliciano Ga. [facility] Work Phone: History and physical note Author Dharmesh Zavala [facility] January 09, 2022 3:30pm Note Date/Time January 09, 2022 3 :30pm [facility] [address] [place] [address] Hospitalist H&P Signed Patient: Irineo Wallis Jr MR# : [id number] : 1940 Acct:[id number] Age/Sex: 81 / M Adm Date: 2 Loc: Room: [address] [place] [address] Type: ADM IN Attending Dr: Dharmesh Zavala [...] that he had seen a urologist in [place] recently. Patient used to be on a number of prostate medications but apparently they were stopped because they are not doing what they are supposed to be doing. The patient andhis daughter have a discussion about what urology was doing for the situation without finding a specific answer. Patient also describes that he has been veryconstipated lately and takes an unspecified nnst-ivi-gojwqze generic stool softener. His daughter does point [...] radiofrequency ablations by pain management doctor in [place]. Review of Systems Review of Systems Review of systems: 10 systems are reviewed and are negative except as mentioned elsewhere in the documentation. [facility] Vacc[facility]-19?: Yes Medical [...] % (Auto) 13.5 % (.) 01/09/22 10:36 Elbert % (Auto) 14.2 % (.) 01/09/22 10:36 Eos % (Auto) 0.1 % (.) 01/09/22 10:36 Baso % (Auto) 1.0 % (.) 01/09/22 10:36 Neut # (Auto) 4.3 x10E3/uL (1.8-7.7) 01/09/22 10:36 Lymph # (Auto) 0.8 x10E3/uL (1.00-4.8) L 01/09/22 10:36 Elbert # (Auto) 0.9 x10E3/uL (0.0-0.8) H 01/09/22 [...] pH 5.5 (5.0-9.0) 01/09/22 12:42 Ur Specific [place] 1.018 (1.001-1.030) 01/09/22 12:42 Urine Protein Trace [...] signed by Dharmesh Zavala DO> 01/09/22 1530 [facility] Work Phone: History of Present illness Narrative* The patient states he has been generally stable since the last visit. Comorbid Illnesses: hypertension. * Symptoms: denies chest pain at rest, denies exertional chest pain, denies dyspnea, denies fatigue, stable exercise intolerance, denies palpitations, denies edema, denies orthopnea, denies dizziness and denies orthostatic dizziness. * [facility] Work Phone: History of Present illness Narrative* The patient states he has been generally stable since the last visit. Comorbid Illnesses: hypertension. * Symptoms: denies chest pain at rest, denies exertional chest pain, denies dyspnea, denies fatigue, stable exercise intolerance, denies palpitations, denies edema, denies orthopnea, denies dizziness and denies orthostatic dizziness. * Disease Monitoring: [facility] 250 DO Work Phone: History of [...] is not doing well with his goals. [facility] Work Phone: History of Present [...] is not doing well with his goals. [facility] 600 DO Work Phone: Hospital Discharge instructions Additional Instructions Retirement Facility to manage care: - Full code [...] unable to void, chou catheter removed on 01/16[facility] Work Phone: Progress note Author Dharmesh Zavala [facility] January 10, 2022 8:54pm Note Date/Time January 10, 2022 8 :54pm [facility] [address] [place] [address] Hospitalist Progress Note Signed Patient: Irineo Wallis Jr MR# : [id number] : 1940 Acct:[id number] Age/Sex: 81 / M Adm Date: 2 Loc: Room: 9F5736-4 Type: ADM IN Attending Dr: Dharmesh Zavala DO Copies to: ~ Date of Service: 01/10/2022 Subjective Subjective Narrative: When I entered the room the patient tells me that he is getting a pain in the thighs on the top of his legs. He does mention that the people in [place] told me that was due to the [...] bradycardia with 3-second pauses. Cardiology with Dr. Urena saw the patient. Coreg and digoxin from [...] mg 01/09/22 14:41 Bisacodyl 10 Mg Supp.Rect MS 01/09/23 14:40 DAILY PRN Constipation Bisacodyl 10 mg 01/09/22 14:41 Bisacodyl 5 Mg Tablet.Dr PO 01/09/23 14:40 DAILY PRN Constipation Bumetanide 1 mg 01/09/22 15:30 01/10/22 14:42 Bumetanide 1 Mg/4 Ml Vial IV-PUSH 01/09/23 15:29 1 mg Q8H ANIBAL Administration Docusate Sodium 100 mg 01/09/22 21:00 01/10/22 08:58 Docusate 100 Mg Capsule PO 01/09/23 20:59 Not Given BID [facility] Fluticasone Propionate 1 spray 01/09/22 15:17 Fluticasone Propionate Lak[place] 120 Lak[place]/16 Gm Bottle NARES-BOTH 01/09/23 15:16 QHS PRN [...] Tablet PO 01/10/23 06:29 150 mcg DAILY@0630 [facility] Administration Magnesium Hydroxide 30 ml 01/09/22 14:41 [...] 2048 Signed By: <Electronically signed by Dharmesh Zavala, > 01/10/222053 [facility] Work Phone: Progress note Author Mani Dickens [facility] January 11, 2022 5:02pm Note Date/Time January 11, 2022 8 :55am [facility] [address] [place] [address] Neurology Progress Note Signed Patient: Irineo Wallis Jr MR# : [id number] : 1940 Acct:[id number] Age/Sex: 81 / M Adm Date: 2 Loc: Room: [address] [place] [address] Type: ADM IN Attending Dr: Raji Ennis [...] knee to all modalities. CEREBELLAR EXAM: * Mbwgxm-sf-vtla and alternating movements are intact and normal in bilateral upper extremities * Iqwx-rh-cwkz and alternating movements are intact and normal [...] Therapy Recommendations: OT Recommendations OT Recommended Discharge Retirement Facility Location OT Recommended Services at Physical Therapy,Occupational Therapy Discharge PT Recommendations PT Recommended Discharge Retirement Facility Location PT Recommended Services at Physical [...] the plan of care and confirmed the DIGITAL COMPUTER SYSTEMS ANALYST note The patient is an 81-year-old man [...] <Electronically signed by MD Mani Dickens> 01/11/22 1704 [facility] Work Phone: Progress note Author Bhupinder Mcintyre [facility] January 11, 2022 2:09pm Note Date/Time January 11, 2022 2 :09pm [facility] [address] [place] [address] Cardiology Progress Note Signed Patient: Irineo Wallis MR# : [id number] : 1940 Acct:[id number] Age/Sex: 81 / M Adm Date: 2 Loc: 3T Room: [address] [place] [address] Type: ADM IN Attending Dr: Raji Ennis [...] % (Auto) 73.8 Lymph % (Auto) 13.7 Elbert % (Auto) 9.6 Eos % (Auto) 2.2 Baso % (Auto) 0.7 Neut # (Auto) 6.3 Lymph # (Auto) 1.2 Elbert # (Auto) 0.8 Eos # (Auto) 0.2 [...] signed by Bhupinder Mcintyre DO> 01/11/22 1409 [facility] Work Phone: Progress note Author Raji [facility] January 11, 2022 5:04pm Note Date/Time January 11, 2022 5 :04pm [facility] [address] [place] [address] Hospitalist Progress Note Signed Patient: Irineo Wallis Jr MR# : [id number] : 1940 Acct:[id number] Age/Sex: 81 / M Adm Date: 2 Loc: Room: [address] [place] [address] Type: ADM IN Attending Dr: Raji Ennis [...] mg 01/09/22 14:41 Bisacodyl 10 Mg Supp.Rect MS 01/09/23 14:40 DAILY PRN Constipation Bisacodyl 10 [...] Propionate 1 spray 01/09/22 15:17 Fluticasone Propionate [place] 120 Lak[place]/16 Gm Bottle NARES-BOTH 01/09/23 15:16 QHS PRN [...] prophylaxis Documented By: Raji Ennis MD 01/11/22 8696 Signed By: <Electronically signed by Raji Ennis MD> 01/11/22 3913 [facility] Work Phone: Progress note Author Mani Dickens [facility] January 12, 2022 4:10pm Note Date/Time January 12, 2022 8 :19am [facility] [address] [place] [address] Neurology Progress Note Signed Patient: Irineo Wallis Jr MR# : [id number] : 1940 Acct:[id number] Age/Sex: 81 / M Adm Date: 2 Loc: Room: [address] [place] [address] Type: ADM IN Attending Dr: Raji Ennis [...] extremities * Unable to test finger-nose or dvao-ve-crgf due to drowsiness REFLEX EXAM: * 1/4 [...] Therapy Recommendations: OT Recommendations OT Recommended Discharge Retirement Facility Location OT Recommended Services at Physical Therapy,Occupational Therapy Discharge PT Recommendations PT Recommended Discharge Retirement Facility Location PT Recommended Services at Physical [...] the plan of care and confirmed the DIGITAL COMPUTER SYSTEMS ANALYST note The patient is an 81-year-old man [...] signed by MD Mani Dickens> 01/12/22 1610 [facility] Work Phone: Progress note Author Raji Ennis [facility] January 12, 2022 4:38pm Note Date/Time January 12, 2022 4 :38pm [facility] [address] [place] [address] Hospitalist Progress Note Signed Patient: Irineo Wallis Jr MR# : [id number] : 1940 Acct:[id number] Age/Sex: 81 / M Adm Date: 2 Loc: Room: [address] [place] [address] Type: ADM IN Attending Dr: Raji Ennis [...] mg 01/09/22 14:41 Bisacodyl 10 Mg Supp.Rect MS 01/09/23 14:40 DAILY PRN Constipation Bisacodyl 10 [...] Propionate 1 spray 01/09/22 15:17 Fluticasone Propionate Lak[place] 120 [place]/16 Gm Bottle NARES-BOTH 01/09/23 15:16 QHS PRN [...] signed by Raji Ennis MD> 01/12/22 1638 [facility] Work Phone: Progress note Author W Be Francisco Javier [facility] January 12, 2022 6:11pm Note Date/Time January 12, 2022 6 :11pm [facility] [address] [place] [address] Cardiology Progress Note Signed Patient: Irineo Wallis Jr MR# : [id number] : 1940 Acct:[id number] Age/Sex: 81 / M Adm Date: 2 Loc: Room: [address] [place] [address] Type: ADM IN Attending Dr: Raji Ennis [...] % (Auto) 76.3 Lymph % (Auto) 12.2 Elbert % (Auto) 9.1 Eos % (Auto) 1.9 Baso % (Auto) 0.5 Neut # (Auto) 7.7 Lymph # (Auto) 1.2 Elbert # (Auto) 0.9 H Eos # (Auto) [...] 2.9 Globulin (PEP) 2.4 Albumin/Globulin (PEP) 1.2 Bcpqp-8-Rmykleaqm 0.4 Oenpd-4-Gilfqhosr 0.7 Beta Globulins 0.6 L Gamma Globulins 0.8 M-Franky Not observed PEP Note IgG 816 IgA 171 IgM 105 Serum Immunofixation 01/12/22 06:42 Corrected WBC Uncorrected WBC Count RBC Hgb Hct MCV MCH MCHC RDW Plt Count MPV Neut % (Auto) Lymph % (Auto) Elbert % (Auto) Eos % (Auto) Baso % (Auto) Neut # (Auto) Lymph # (Auto) Elbert # (Auto) Eos # (Auto) Baso # (Auto) Nucleated RBC % (auto) PHA Creatinine Clear Sodium Potassium Chloride Carbon Dioxide Anion Gap BUN Creatinine Est GFR ( Amer) Est GFR (Non-Af Amer) Glucose Calcium C-Reactive Prot, Quant 8.4 H Serum Total Protein Albumin (Send Out) Globulin (PEP) Albumin/Globulin (PEP) Ulber-8-Mwepvqvaf Xswue-3-Rrjhizbsm Beta Globulins Gamma Globulins M-Franky PEP Note [...] <Electronically signed by Bhupinder Mcintyre DO> 01/12/221810 [facility] Work Phone: Progress note Author Mani Dickens [facility] January 13, 2022 6:10pm Note Date/Time January 13, 2022 8 :13am [facility] [address] [place] [address] Neurology Progress Note Signed with Addenda Patient: Irineo Wallis Jr MR# : [id number] : 1940 Acct:[id number] Age/Sex: 81 / M Adm Date: 2 Loc: Room: [address] [place] [address] Type: ADM IN Attending Dr: Raji Ennis [...] extremities * Unable to test finger-nose or gjzq-yy-mchm due to drowsiness REFLEX EXAM: * 1/4 [...] Therapy Recommendations: OT Recommendations OT Recommended Discharge Retirement Facility Location OT Recommended Services at Physical Therapy,Occupational Therapy Discharge PT Recommendations PT Recommended Discharge Retirement Facility Location PT Recommended Services at Physical [...] <Electronically signed by MEI Knight> 01/13/22 1520 [facility] Work Phone: Progress note Author Raji [facility] January 13, 2022 3:44pm Note Date/Time January 13, 2022 3 :27[facility] [address] [place] [address] Hospitalist Progress Note Signed Patient: Irineo Wallis Jr MR# : [id number] : 1940 Acct:[id number] Age/Sex: 81 / M Adm Date: 2 Loc: 3T Room: [address] [place] [address] Type: ADM IN Attending Dr: Raji Ennis [...] mg 01/09/22 14:41 Bisacodyl 10 Mg Supp.Rect MS 01/09/23 14:40 DAILY PRN Constipation Bisacodyl 10 [...] Propionate 1 spray 01/09/22 15:17 Fluticasone Propionate Lak[place] 120 [place]/16 Gm Bottle NARES-BOTH 01/09/23 15:16 QHS PRN [...] signed by Raji Ennis MD> 01/13/22 1544 [facility] Work Phone: Progress note Author Frankie Reynolds [facility] January 14, 2022 9:39am Note Date/Time January 14, 2022 9:39am [facility] [address] [place] [address] Infect. Disease Progress Note Signed Patient: Irineo Wallis MR# : [id number] : 1940 Acct:[id number] Age/Sex: 81 / M Adm Date: 2 Loc: Room: [address] [place] [address] Type: ADM IN Attending Dr: Raji Ennis [...] Appearance Clear Urine pH 5.5 Ur Specific [place] 1.012 Urine Protein 30 H Urine Glucose [...] Bisacodyl (Bisacodyl 10 Mg Supp.Rect) 10 mg MS DAILY PRN PRN Reason: Constipation Stop: 01/09/23 14:40 Bisacodyl (Bisacodyl 5 Mg Tablet.Dr) 10 mg PO DAILY PRN PRN Reason: Constipation Stop: 01/09/23 14:40 Last Admin: 01/13/22 21:26 Dose: 10 mg Bumetanide (Bumetanide 1 Mg Tablet) 1 mg PO BID@0800,1600 [facility] Stop: 01/13/23 15:59 Docusate Sodium (Docusate 100 Mg Capsule) 100 mg PO BID [facility] Stop: 01/09/23 20:59 Last Admin: 01/14/22 08:03 Dose: 100 mg Fluticasone Propionate (Fluticasone Propionate Lakeland 120 Lak[place]/16 Gm Bottle) 1 spray NARES-BOTH QHS PRN PRN Reason: Nasal Congestion Stop: 01/09/23 15:16 Magnesium Sulfate (Magnesium Sulf 2gm-*Swfi*) 2 gm in 50 mls @ 25 mls/hr IV DAILY PRN PRN Reason: Magnesium Level < 1.5 Stop: 01/09/23 14:40 Cefepime HCl (Maxipime) 2 gm in 50 mls @ 100 mls/hr IV Q12H [facility] Last Admin: 01/14/22 03:05 Dose: 100 mls/hr Vancomycin HCl 1.25 gm/ (Dextrose) 275 mls @ 183.333 mls/hr IV Q24H [facility] Stop: 01/13/23 18:59 Last Infusion: 01/13/22 21:17 Dose: Infused Levothyroxine Sodium (Levothyroxine 150 Mcg Tablet) 150 mcg PO DAILY@0630 [facility] Stop: 01/10/23 06:29 Last Admin: 01/14/22 05:54 Dose: 150 mcg Magnesium Hydroxide (Magnesium Hydroxide Susp 30 Ml Udc) 30 ml PO BID PRN PRN Reason: Constipation Stop: 01/09/23 14:40 Magnesium Oxide (Magnesium Oxide 400 Mg Tablet) 400 mg PO DAILY [facility] Stop: 01/10/23 08:59 Last Admin: 01/14/22 08:04 Dose: 400 mg Nitroglycerin (Nitroglycerin 0.4 Mg Tab.Subl) 0.4 mg SUBLINGUAL Q5MIN.X3 PRN PRN Reason: Chest Pain Stop: 01/09/23 14:40 Pom Eszopiclone 3 Mg (Tablet) 3 mg PO HS [facility] Stop: 01/11/23 21:59 Last Admin: 01/13/22 21:27 Dose: 3 mg Nystatin (Nystatin 100,000 Unit/Gram Powder 15 Gm Bottle) 1 applic TOPICAL TID [facility] Stop: 01/09/23 21:59 Last Admin: 01/14/22 08:04 [...] acid was within normal limits Documented By: Frankie Reynolds MD 01/14/22934 Signed By: <Electronically signed by MD Frankie Reynolds> 01/14/2239 [facility] Work Phone: Progress note Author Raji Ennis [facility] January 14, 2022 5:43pm Note Date/Time January 14, 2022 5:43pm [facility] [address] [place] [address] Hospitalist Progress Note Signed Patient: Irineo Wallis Jr MR# : [id number] : 1940 Acct:[id number] Age/Sex: 81 / M Adm Date: 2 Loc: Room: [address] [place] [address] Type: ADM IN Attending Dr: Raji Ennis [...] mg 01/09/22 14:41 Bisacodyl 10 Mg Supp.Rect MS 01/09/23 14:40 DAILY PRN Constipation Bisacodyl 10 [...] Propionate 1 spray 01/09/22 15:17 Fluticasone Propionate [place] 120 [place]/16 Gm Bottle NARES-BOTH 01/09/23 15:16 QHS PRN [...] <Electronically signed by Raji Ennis MD> 01/14/221742 [facility] Work Phone: Progress note Author Frankie Reynolds [facility] January 15, 2022 12:21pm Note Date/Time January 15, 2022 12:21pm [facility] [address] [place] [address] Infect. Disease Progress Note Signed Patient: Irineo Wallis Jr MR# : [id number] : 1940 Acct:[id number] Age/Sex: 81 / M Adm Date: 2 Loc: Room: [address] [place] [address] Type: ADM IN Attending Dr: Raji Ennis [...] 300 Mg Tablet) 300 mg PO DAILY [facility] Stop: 01/10/23 08:59 Last Admin: 01/15/22 08:46 Dose: 300 mg Apixaban (Apixaban 5 Mg Tablet) 5 mg PO BID [facility] Stop: 01/09/23 20:59 Last Admin: 01/15/22 08:46 Dose: 5 mg Atorvastatin Calcium (Atorvastatin 40 Mg Tablet) 40 mg PO QHS [facility] Stop: 01/09/23 21:59 Last Admin: 01/14/22 21:32 Dose: 40 mg Bisacodyl (Bisacodyl 10 Mg Supp.Rect) 10 mg MS DAILY PRN PRN Reason: Constipation Stop: 01/09/23 14:40 Bisacodyl (Bisacodyl 5 Mg Tablet.Dr) 10 mg PO DAILY PRN PRN Reason: Constipation Stop: 01/09/23 14:40 Last Admin: 01/14/22 19:57 Dose: 10 mg Bumetanide (Bumetanide 1 Mg Tablet) 1 mg PO DAILY@0800 [facility] Stop: 01/14/23 15:59 Last Admin: 01/15/22 08:46 Dose: 1 mg Docusate Sodium (Docusate 100 Mg Capsule) 100 mg PO BID [facility] Stop: 01/09/23 20:59 Last Admin: 01/15/22 08:46 Dose: 100 mg Fluticasone Propionate (Fluticasone Propionate Lak[place] 120 [place]/16 Gm Bottle) 1 spray NARES-BOTH QHS PRN PRN Reason: Nasal Congestion Stop: 01/09/23 15:16 Magnesium Sulfate (Magnesium Sulf 2gm-*Swfi*) 2 gm in 50 mls @ 25 mls/hr IV DAILY PRN PRN Reason: Magnesium Level < 1.5 Stop: 01/09/23 14:40 Levothyroxine Sodium (Levothyroxine 150 Mcg Tablet) 150 mcg PO DAILY@0630 [facility] Stop: 01/10/23 06:29 Last Admin: 01/15/22 06:38 Dose: Not Given Magnesium Hydroxide (Magnesium Hydroxide Susp 30 Ml Udc) 30 ml PO BID PRN PRN Reason: Constipation Stop: 01/09/23 14:40 Magnesium Oxide (Magnesium Oxide 400 Mg Tablet) 400 mg PO DAILY [facility] Stop: 01/10/23 08:59 Last Admin: 01/15/22 08:46 Dose: 400 mg Nitroglycerin (Nitroglycerin 0.4 Mg Tab.Subl) 0.4 mg SUBLINGUAL Q5MIN.X3 PRN PRN Reason: Chest Pain Stop: 01/09/23 14:40 Pom Eszopiclone 3 Mg (Tablet) 3 mg PO HS [facility] Stop: 01/11/23 21:59 Last Admin: 01/14/22 21:32 Dose: 3 mg Nystatin (Nystatin 100,000 Unit/Gram Powder 15 Gm Bottle) 1 applic TOPICAL TID [facility] Stop: 01/09/23 21:59 Last Admin: 01/15/22 08:46 [...] 20 Meq Tab.Er.Prt) 20 meq PO QPM [facility] Stop: 01/09/23 20:59 Last Admin: 01/14/22 21:32 Dose: 20 meq Sodium Chloride (Sodium Chloride 0.9 % 10 Ml Syringe) 0 ml IV-PUSH PRN PRN PRN Reason: Flush Stop: 01/09/23 09:37 Last Admin: 01/10/22 23:31 Dose: 10 ml Sodium Chloride (Sodium Chloride 0.9 % 10 Ml Syringe) 0 ml IV-PUSH QSHIFT [facility] Stop: 01/09/23 21:59 Last Admin: 01/15/22 06:38 Dose: Not Given A&P - Infectious Disease Assessment/Plan (1) Fever: Code(s): R50.9 - Fever, unspecified Status: Acute Plan Antibiotics were stopped last night due to lack of infectious etiology found. Patient remains afebrile. Continue to observe off antibiotics. Patient denies any new physical complaints. We will follow him as needed Documented By: Frankie Reynolds MD 01/15/22 1220 Signed By: <Electronically signed by MD Frankie Reynolds> 01/15/22 1221 [facility] Work Phone: Progress note Author Raji Ennis [facility] January 15, 2022 4:51pm Note Date/Time January 15, 2022 4:51pm [facility] [address] [place] [address] Hospitalist Progress Note Signed Patient: Irineo Wallis Jr MR# : [id number] : 1940 Acct:[id number] Age/Sex: 81 / M Adm Date: 2 Loc: Room: [address] [place] [address] Type: ADM IN Attending Dr: Raji Ennis [...] mg 01/09/22 14:41 Bisacodyl 10 Mg Supp.Rect MS 01/09/23 14:40 DAILY PRN Constipation Bisacodyl 10 [...] Propionate 1 spray 01/09/22 15:17 Fluticasone Propionate [place] 120 [place]/16 Gm Bottle NARES-BOTH 01/09/23 15:16 QHS PRN [...] tomorrow. Documented By: Raji Ennis MD 01/15/22 2017 Signed By: <Electronically signed by Raji Ennis MD> 01/15/22 1651 [facility] Work Phone: Reason for referral (narrative)* Consultation (Routine) - Authorized Specialty Diagnoses / Procedures Referred By Contac t Referred To Contact Cardiology Diagnoses Heart failure, NYHA class 2 (Multi) Procedures Follow Up In Cardiology Irineo Mcintyre DO [address] [facility] [place] [address] Irineo Mcintyre DO [address] [facility] [address], [facility] [address] [place] [address] Referral ID Status Reason Start Date Expiration Date V isits Requested Visits Authorized [id number] Authorized 07/13/2023 07/12/2024 1 1 [facility] Work Phone: Summary Purpose Family History Unknown [...] Condition Age at Onset Recorded Date/T jc mother Alzheimer's disease Unknown History of coronary artery bypass surgery Unknown Coronary artery disease Unknown Myocardial infarction Unknown brother Myocardial infarction Unknown father Hepatic cirrhosis Unknown sister Malignant neoplasm Unknown brother Heart disease Unknown father Unknown Hepatic cirrhosis Unknown grandparent Unknown mother Unknown Hypertension Unknown Heart disease Unknown mother Heart disease Unknown son Malignant neoplasm Unknown Relationship Condition Age at Onset Recorded Date/T jc mother Alzheimer's disease Unknown History of coronary artery bypass surgery Unknown Coronary artery disease Unknown Myocardial infarction Unknown Heart disease Unknown Hypertension Unknown brother Myocardial infarction Unknown father Hepatic cirrhosis Unknown Unknown sister Malignant neoplasm Unknown brother Heart disease Unknown son Malignant neoplasm Unknown Advance Directives Advance Directive Response Recorded Date/ Time Advance Directives No January 07, 2017 10:09am Advance Directive Response Recorded Date/ Time Advance Directives No January 07, 2017 9:09am Advance Directive Response Recorded Date/ Time Advance Directives No April 05, 2023 4:20pm Chief Complaint * I am doing pretty [...] same as last office f/u. * IRINEO NESBITTAYLEENROEL is being seen for a 6 month [...] 'seem to be doing fine' * IRINEO NESBITTAYLEENROEL is being seen for follow-up of a hospitalization for dizziness. * Hospital f/u: 'seem to be doing fine' * IRINEO NESBITTAYLEENROEL is being seen for follow-up of a hospitalization for dizziness. * Patient presents to the office ambulatory with wheeled walker and steady gait. Last evaluated in clinic Dr. Mcintyre July 2021. * January 2022 hospitalized at [facility] due to fall, noted bradycardia with3.0-second pause he was seen in consultation by Dr. Urena. 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 He denies any palpitations or fast heartbeats. [...] carvedilol and digoxin were discontinued by Dr. Urena * NYHA classification is class II/C * Recommendations, follow-up in 1 year on same therapy Chief Complaint and Reason for Visit Chief Complaint MEDICARE/[facility]i [facility] Chief Complaint E03.9 I10 I48.91 fall Reason for Visit Acute decompensated heart failure Acute exacerbation of chronic low back pain Elevated troponin Fall Hypoxemia Chief Complaint E03.9 I10 I48.91 fall Reason for Visit Acute decompensated heart failure Acute exacerbation of chronic low back pain [id number] Acute respiratory failure with hypoxia Altered mental [...] Acute exacerbation of chronic low back pain [id number] Acute respiratory failure with hypoxia Altered mental [...] Acute exacerbation of chronic low back pain [id number] Acute respiratory failure with hypoxia Altered mental status Anasarca Bladder retention Bradycardia Constipation Difficulty walking Elevated troponin Fall Falls frequently Fever Generalized weakness HFrEF (heart failure with reduced ejection fraction) Hypoxemia Impaired activities of daily living Myxopapillary ependymoma Pleural effusion Sleep apnea Atrial fibrillation Hypertension Chief Complaint I48.20 I10 I50.9 E78 .5 E03.9 E78.5 Z12.5 Chief Complaint I48.20 I10 I50.9 E78 .5 E03.9 E78.5 Z12.5 6 month Reason for Visit Hyperlipidemia Hypertension Hypothyroidism Screening for prostate cancer Additional Source Comments (unrecognized sect ion and content) No Status Records FoundNo Status Records FoundNo Status Records FoundNo Status Records FoundNo Status Records FoundNo Status Records FoundNo Status Records Found INFORMATION SOURCE (unrecogn ized section and content) DATE CREATED AUTHOR 08/30/2017 Roman Gomez [facility] DATE CREATED AUTHOR AUTHOR'S ORGANIZ ATION 07/09/2022 [facility] DATE CREATED AUTHOR AUTHOR'S ORGANIZ ATION 07/09/2022 [employer] DATE CREATED AUTHOR AUTHOR'S ORGANIZ ATION 07/16/2022 [facility] DATE CREATED AUTHOR AUTHOR'S ORGANIZ ATION 05/11/2023 [facility] DATE CREATED AUTHOR AUTHOR'S ORGANIZ ATION 2023 [facility] DATE CREATED AUTHOR AUTHOR'S ORGANIZ ATION 09/19/2023 [facility] REASON FOR VISIT (unrecogniz ed section and content) Reason Comments Annual Exam 1yr Care Teams (unrecognized sec tion and content) Team Status: Active Member Role Status Dates Feliciano Ga , DO Primary Care Provider Active Team Status: Inactive Member Role Status Dates Feliciano Ga , DO Primary Care Provider, Attending Provi percy Active Team Status: Inactive Member Role Status Dates Feliciano Ga , DO Primary Care Provider Active Monserrat Rodarte DIGITAL COMPUTER SYSTEMS ANALYST-C Attending Provider Active Team Status: Active Member Role Status Dates Feliciano Ga , DO Primary Care Provider Active Frankie Paiz MD Emergency Provider Active Dharmesh Zavala , DO Admit Provider, Attending Pr ovidyariel Active Team Status: Inactive Member Role Status Dates Feliciano Ga , DO Primary Care Provider Active Frankie Paiz MD Emergency Provider Active Dharmesh Zavala , DO Admit Provider Active Shy Mcdonough Other Provider Active Meme De La Torre , DO Other Provider Active Mani Dickens MD Other Provider Active Matheus Rizvi , DO Other Provider Active Hoa Knight , ANP-BC Other Provider Active Vikas Mane , DO Other Provider Active Jen Degroot , INORGANIC CHEMISTRY PROFESSOR Other Provider Active Raji Ennis MD Attending Provider Active Frankie Reynolds MD Other Provider Active Team Status: Inactive Member Role Status Dates Feliciano Ga , DO Primary Care Provider Active Enedelia Gomez , INORGANIC CHEMISTRY PROFESSOR Attending Provider Active Team Status: Active Member Role Status Dates Feliciano Ga , DO Primary Care Provider Active Feliciano Ga , DO [facility] Attending Provider Active Team Status: Inactive Member Role Status Dates Feliciano Ga , DO Primary Care Provider Active Feliciano Ga , DO [facility] Attending Provider Active Triage Nurse Relationship Specialty Start Date End Date Feliciano Ga DO PCP - General 01/05/21 Team Status: Inactive Member Role Status Dates Feliciano Ga DO Primary Care Provider Active Sta rt: July 19, 2023 End: July 19, 2023 Bhupinder Mcintyre DO Attending Provider Active S tart: July 19, 2023 End: July 19, 2023 Team Status: Inactive Member Role Status Dates Feliciano Ga DO Primary Care Provide r, Attending Provider Active Start: September 12, 2023 End: September 12, 2023 Team Status: Active Member Role Status Dates Bhupinder Mcintyre DO Specialist Active Feliciano Ga DO Primary Care Provider Active Team Status: Inactive Member Role Status Dates Feliciano Ga DO Primary Care Provide r, Attending Provider Active Start: September 21, 2023 End: September 21, 2023 Goals (unrecognized section and content) Goals may [...] BE BASED ON THE PRIMARY CLINICAL RECORDS. [facility] [employer] [facility]. provides no warranty or guarantee of the accuracy or completeness of information in this document.
== END 2023-09-27 09:30 | disposition home or self-care (01) ==
LOC: MRI 09:30
PROVIDERS: Visit Provider Nurse Practitioner
DX: M48.062 Spinal stenosis, lumbar region with neurogenic claudication (principal); M51.36 Other intervertebral disc degeneration, lumbar region
CPT/HCPCS: 72148

== ENCOUNTER 2023-09-29 12:49 | Outpatient (OUT) | payer MEDICARE, BC, SELFPAY ==
--- NOTE | 2023-09-29 13:08 | P.CN_ITS ---
Consult Note: HPI Data of Consult Patient: known to practice within the last 3 years Requesting Physician: Silvia Kimble NP Primary Care Provider: Non-Staff Physician, MD Consult Narrative Reason for consult: f/u Narrative: Irineo Mendes a pleasant 82 year old male presents for evaluation and management of chronic low back pain. Pain today 4/10 in low back, dull heavy ache, with increasing numbness tingling and weakness of legs. Hx of lumbar stenosis with NC, update lumbar MRI as noted below. Patient has failed to benefit from greater than 6 weeks PT/HEP. Finds moderate benefit to tylenol and percocet without side effects, cannot take NSAIDs on eliquis. Axial low back pain improved from prior lumbar RFAs but continues to report heaviness numbness tingling BLE. cc:: CC: Silvia iKmble NP Review of Systems ROS Status of ROS 10 or more systems reviewed and unremark able except as noted in history and below Musculoskeletal Reports: back pain and extremity pain PFSH PFSH Medical History CHF (congestive heart failure) ?I50.9 - Heart failure, unspecified (ICD-10) Cataracts, bilateral ?H26.9 - Unspecified cataract (ICD-10) Low back pain ?M54.50 - Low back pain, unspecified (ICD-10) Hypothyroid ?E03.9 - Hypothyroidism, unspecified (ICD-10) Hypercholesterolemia ?E78.00 - Pure hypercholesterolemia, unspecified (ICD-10) Afib ?I48.91 - Unspecified atrial fibrillation (ICD-10) Surgical History History of total knee arthroplasty ?Z96.659 - Presence of unspecified artificial knee joint (ICD-10) History of hip replacement ?Z96.649 - Presence of unspecified artificial hip joint (ICD-10) Previous back surgery ?Z98.890 - Other specified postprocedural states (ICD-10) History of shoulder surgery ?Z98.890 - Other specified postprocedural states (ICD-10) Meds Home Medications and Allergies Home Medications ?Medication ?Instructions ?Recorded ?Confirmed ?Type acetaminophen 500 mg oral powder 1,000 mg PO BID PRN pain 01/06/23 04/18/23 History packet (Tylenol Extra Strength) allopurinol 300 mg tablet 300 mg PO DAILY 01/06/23 04/18/23 History apixaban 5 mg tablet (Eliquis) 5 mg PO BID 01/06/23 04/18/23 History atorvastatin 40 mg tablet 40 mg PO DAILY 01/06/23 04/18/23 History bumetanide 1 mg tablet 1 mg PO DAILY 01/06/23 04/18/23 History eszopiclone 3 mg tablet 3 mg PO BEDTIME 01/06/23 04/18/23 History levothyroxine 150 mcg capsule 150 mcg PO DAILY 01/06/23 04/18/23 History magnesium oxide 400 mg PO DAILY 01/06/23 04/18/23 History oxycodone-acetaminophen 5 mg-325 1 tab PO BID 01/06/23 04/18/23 History mg tablet (Endocet) potassium chloride 20 mEq 20 meq PO DAILY 01/06/23 04/18/23 History tablet,extended release(part/cryst) pramipexole 0.25 mg tablet 0.25 mg PO DAILY 01/06/23 04/18/23 History (Mirapex) trazodone 50 mg tablet 50 mg PO DAILY 01/06/23 04/18/23 History Allergies Allergy/AdvReac Type Severity Reaction Status Date / Time fentanyl [From Duragesic] Allergy Unknown Verified 04/18/23 09:42 indomethacin [From Indocin] Allergy Unknown Verified 04/18/23 09:42 Penicillins Allergy Unknown Verified 04/18/23 09:42 zolpidem [From Ambien] Allergy Verified 04/18/23 09:42 Exam Constitutional Documenting provider has reviewed patient's vital signs: yes Common normals: no apparent distress, oriented x3, healthy appearing, alert and well nourished General appearance: cooperative [facility] Common normals: normocephalic, hearing grossly normal bilaterally and moist oral mucous membranes Head and scalp: normocephalic Eye Common normals: PERRL Pupil: PERRL Neck & C-Spine Common normals: full ROM General: normal visual inspection Chest Common normals: inspection of chest normal Respiratory Common normals: normal respiratory effort, no retractions and no use of accessory muscles Back & Pelvis Lumbar spine/lower back: ROM limited, pain with ROM and straight leg raise negative bilaterally Other: mild facet loading altered sensation to LLE following L4,5,S1 pattern strength 4/5 in BLE Extremity Common normals: normal to inspection and full ROM Neuro Common normals: oriented x3, CN's II-XII intact bilaterally, moves all extremities, no focal motor deficits, no sensory deficits noted and deep tendon reflexes 2+ bilaterally Sensorium/orientation: alert Gait (neuro): antalgic and assistive device used cane Motor exam: no movement abnormalities noted and strength abnormal Psych Common normals: mental status grossly normal, thought process normal, cooperativ e, affect normal, speech normal and activity/motor behavior normal Speech: normal speech Thought process: normal thought process Results Imaging Lumbar MRI: Attestation: I have reviewed the pertinent imaging results. Radiologist's impression: FINDINGS: There is an exaggerated lumbar lordosis. There is grade 1 spondylolisthesis at L4-5 measuring 5 mm. This is stable. There is grade 1 retrolisthesis at L2-3 measuring 3 mm which is stable. No acute compression fracture. There appears to be some mild bone marrow edema on the left side of the sacrum along the left sacral ala on the STIR images with some hyperintense signal in this location. On the axial T1 images, there is some hypointense signal oriented in a linear fashion along the left sacral ala suspicious for a mild sacral insufficiency fracture on the left side of the sacrum. This is new from the prior. L5-S1, there are postoperative changes from previous laminectomy. The disc space is normal in height. No disc herniation. No spinal canal stenosis. There is mild left foraminal narrowing. L4-5, moderate to severe degenerative disc disease stable. Grade 1 spondylolisthesis stable. There has been a previous laminectomy. There is osseous fusion across the facet joints. There is mild central spinal canal stenosis. Spondylolisthesis and disc space narrowing result in severe foraminal stenosis bilaterally, left greater than right. These findings are stable. This level is unchanged. L3-4, there has been a previous laminectomy at this level. Severe facet arthropathy bilaterally with severe facet hypertrophy. Severe degenerative disc disease. Severe facet hypertrophy results in severe central spinal canal stenosis with severe effacement of the thecal sac. This is stable from the prior. Disc space narrowing and osteophytes result in severe foraminal narrowing bilaterally which is stable. This level is unchanged. L2-3, there has been a previous laminectomy. There is severe degenerative disc disease. Grade 1 retrolisthesis. Severe facet arthropathy. There is severe spinal canal stenosis which appears stable. Severe right foraminal narrowing stable. Moderate left foraminal narrowing stable. L1-2, moderate degenerative disc disease. No spinal stenosis. No foraminal narrowing. No abnormal signal in the conus medullaris. There is clumping of the nerve roots of the cauda equina and the thecal sac from L2-3 through L5-S1. The nerve roots appear somewhat thickened. There are some areas of dark signal on T2-weighted throughout the thecal sac in these areas on the sagittal T2 images. These findings suggest chronic arachnoiditis. The findings are stable. Assessment and Plan Assessment and Plan (1) Lumbar stenosis with neurogenic claudication: (2) Lumbar radiculopathy: (3) Lumbar spondylosis: Plan lumbar MRI reviewed with pt, unlikely a surgical candidate due to age and comorbidities but I will refer to Dr Collier for evaluation. we reviewed signs of cauda equina syndrome and when to seek ER evaluation. denies loss of bowel/bladder will continue to monitor left pelvis for worsening of fx bilateral L3-4 TFESI followed by bilateral L4-5 TFESI under fluoroscopy, risks vs benefits reviewed continue current medications f/u after injections
== END 2023-09-29 12:50 | disposition home or self-care (01) ==
LOC: PM 12:50
PROVIDERS: Visit Provider Nurse Practitioner
DX: M48.062 Spinal stenosis, lumbar region with neurogenic claudication (principal); M54.16 Radiculopathy, lumbar region; M47.816 Spondylosis without myelopathy or radiculopathy, lumbar region
CPT/HCPCS: G0463

== ENCOUNTER 2023-10-10 11:47 | Day surgery (SDC) | payer MEDICARE, BC, SELFPAY ==
[2023-10-10 12:01] VITALS: BP 136/72; PULSE 78; TEMP 36.7; O2SAT 98
[2023-10-10 12:14] VITALS: BP 127/67; BP 132/69; PULSE 78; PULSE 82; O2SAT 99
[2023-10-10] MEDS: BUPIVACAINE HCL 0.25% PF 25 MG/10 ML VIAL INJ (12:15)
[2023-10-10] MEDS: 0.9 % SODIUM CHLORIDE 10 ML SYRINGE - SALINE FLUSH INJ (12:15)
[2023-10-10] MEDS: IOHEXOL 240 MG/ML - 10 ML VIAL INJ (12:16)
[2023-10-10] MEDS: DEXAMETHASONE SOD PHOS 10 MG/ML VIAL INJ (12:16)
[2023-10-10] MEDS: LIDOCAINE HCL 2% 400 MG/20 ML MDV 5 ML INJ (12:16)
--- NOTE | 2023-10-10 12:20 | W.PM.PROCNOT ---
Date of procedure: 10/10/23 Pre-op diagnosis: Pain due to lumbar stenosis with neurogenic claudication Post-op diagnosis: same as pre-op Procedure: Procedure: Bilateral L3-4 transforaminal epidural steroid injection Medications: Bupivacaine 0.25% 2cc, lidocaine 2% 1cc, dexamethasone 10mg The patient was seen and examined in the preoperative holding area.? Informed consent was obtained and placed on the chart.? Patient was brought to the medical procedure unit and placed in the prone position where a timeout was completed verifying the correct patient, procedure site, position, and planned special equipment using sterile aseptic technique.? Under direct fluoroscopic visualization a 25-gauge Quincke tipped spinal needle was advanced at level left L3-4 to the designated neural foramen where contrast dye was injected to show adequate spread.? There was no evidence of vascular or adverse uptake.? Epidural spread was appreciated.? The above-mentioned injectate was then placed in a 1.5 mL aliquot preceded by negative aspiration.? The needle was removed. The same procedure, at the same level, was completed on the opposite side. ? Patient was taken to the postprocedural recovery area and monitored for an appropriate length of time before found suitable for discharge in the accompaniment of a responsible adult. Anesthesia: Local Surgeon: Diana Price Pathology: none sent Condition: stable Disposition: no change
== END 2023-10-10 12:24 | disposition home or self-care (01) ==
LOC: SURGOUT 11:47
PROVIDERS: Visit Provider Anesthesiology
DX: M48.062 Spinal stenosis, lumbar region with neurogenic claudication (principal)
CPT/HCPCS: 64483; J0665; J1100; Q9966

== ENCOUNTER 2023-10-24 08:01 | Day surgery (SDC) | payer MEDICARE, BC, SELFPAY ==
--- OUTSIDE RECORDS SUMMARY | 2023-10-24 08:19 | XMS_ITS | CCD ---
Author Organization [facility] CliniSywi Care Team Providers Care Laboratory Director Name Role Phone Dontrell Good W Unavailable Unavailable Rice, Dontrell W Unavailable Unavailable Rice Dontrell W Unavailable Unavailable NONE, XXXX Unavailable Unavailable Feliciano Ga Unavailable Unavailable Unavailable Feliciano Ga Unavailable DO Feliciano Ga Primary Care Provider AKUA Rodarte Attending Provider DO Feliciano Ga Attending Provider DO Feliciano Ga Primary Care Provider DO Feliciano Ga Attending Provider MD Frankie Paiz Emergency Provider [phone] DO Dharmesh Zavala Admit Provider DO Dharmesh Zavala Attending Provider Shy Mcdonough Other Provider Unavailable DO Meme De La Torre Other Provider MD Mani Dickens Other Provider DO Matheus Rizvi Other Provider Antonia ANP- Hoa Other Provider DO Vikas Mane Other Provider RIKY Degroot Other Provider [phone] MD Raji Ennis Attending Provider MD Frankie Reynolds Other Provider RIKY Mix Attending Provider Kuns, DO Feliciano Myers Attending Provider Kuns, DO Feliciano Primary Care Provider [phone] Kuns, DO Feliciano Myers Attending Provider [phone] Kuns, Dr. Feliciano Parker Primary Care Unavaila cb Gomez, Dane Enedelia Gusmanshelia San Attending Rula Gomez, Dane San Referring Unavai noe Ga, Dr. Feliciano Parker Primary Care Unavaila cb Gomez, Dane Enedelia Gusmanshelia San Attending Rula Gomez, Dane Enedelia Raegan San Referring Unavai labfrederic Ga, Dr. Feliciano Parker Primary Care Unavaila ble Urena, Marv Referring Unavailable Kuncatie, Dr. Feliciano Parker Primary Care Unavaila ble Urena, Marv Attending Unavailable Harmeet, Dr. Feliciano Parker Primary Care Unavaila ble Francisco Javier, Irineo Attending Unavailable Francisco Javier, Irineo Referring Unavailable Kuncatie, Dr. Feliciano Parker Primary Care Unavaila ble Irineo Mcintyre Attending Unavailable Francisco Javier, Irineo Referring Unavailable Kuncatie, Dr. Feliciano Parker Primary Care Unavaila ble Urena, Marv Attending Unavailable Urena, Marv Attending Unavailable Harmeet, Dr. Feliciano Parker Primary Care Unavaila ble Urena, Marv Attending Unavailable Harmeet, Dr. Feliciano Parker Primary Care Unavaila ble KOSTA ., DR TROY Whitmore Admitting Unavailable BRAMBILA ., DR RTOY Whitmore Consulting Unavailable BRAMBILA ., DR TROY Whitmore Attending Unavailable HARMEET, DR WIGGINS Primary Care [...] Care Unavailable HARMEET, DR WHITTINGTON Consulting Unavailable MADISON .DOMINIC Attending Unavailable MADISON ., DOMINIC Admitting Unavailable KUNS, DR WHITTINGTON Primary Care Unavailable KUNS, DR [...] Attending Unavailable RODARTE ., MONSERRAT Consulting Unavailable CLARES, DR WHITTINGTON Primary Care Unavailable TEQUILA, EDILMA Attending Unavailable TEQUILA, EDILMA Admitting Unavailable RONALD ISRAEL Consulting Unavailable KUNS, [...] Unavailable HARMEET, DR WIGGINS Primary Care Unavailable Clares, DO Wiggins Primary Care Provider Clares, DO Wiggins Attending Provider Kuns Feliciano HARGROVE Primary Care Provider [phone] IRINEO MCINTYRE Attending Unavailable FELICIANO GA Primary Care Unavailable Clares, DO Wiggins Primary Care Provider DO Bhupinder Mcintyre Attending Provider [phone] Kuns, DO Wiggins Attending Provider Harmeet, Feliciano Primary Care Unavailable Bhupinder Mcintyre Admitting Unavailable Bhupinder Mcintyre Attending Unavailable Harmeet, Feliciano Attending Unavailable Kuns, Feliciano Admitting Unavailable HarmeetFeliciano Primary Care Unavailable Giedraitis , Diana Hubbard Attending Unavailable Giedraitis , Diana Hubbard Attending Unavailable Giedraitis , Diana Hubbard Attending Unavailable Giedraitis , Diana Hubbard Attending Unavailable Giedraitis , Diana Hubbard Attending Unavailable Allergies Allergy Classification Reported Allergen(s) Allergy Type Date of Onset Reaction(s) Facility (20 sources) fentaNYL; Translations: [fentaNYL] Drug Allergy 0 Dizziness, Nausea Only [facility] Repository (20 sources) indomethacin; Translations: [Indocin] Drug Allergy Other [facility] (20 sources) penicillin; Translations: [penicillin] Drug Allergy 4 anaphylaxis [facility]ository (1 source) Duragesic-25; Translations: [Duragesic-25] Propensity to adverse reactions (disorder) [facility] (1 source) FentaNYL Matrix; Translations: [FentaNYL Matrix] Propensity to adverse reactions (disorder) AOF [facility] (20 sources) fentaNYL; Translations: [Duragesic-75 PT72] Drug Allergy Dizziness, Nausea [facility] [facility] DO Work Phone: (20 sources) Penicillins; Translations: [Penicillins] Allergy to drug (finding) 0 Other, Weakness [facility] (20 sources) zolpidem; Translations: [Ambien] Drug Allergy [address] [facility] DO Work Phone: (20 sources) Indomethacin; Translations: [INDOMETHACIN] Drug Allergy 0 Other [facility] (20 sources) Duragesic-75 Drug allergy 4 nausea [facility] (10 sources) zolpidem; Translations: [ZOLPIDEM] Drug Allergy 0 Confusion, Confusion, memory loss [facility] (1 source) fentaNYL Drug Allergy [facility] (2 sources) Penicillins Drug allergy (disorder) 5 [facility] (1 source) zolpidem Drug Allergy [facility] (1 source) Penicillins Drug Allergy 3 Other [facility] Work Phone: Medications Current Medications Medication [...] 30-40mmhg size xs. 5 gvaris, [id number], [place] [id number] Sep, Active Start: 09-28-[address] [facility] [...] 2023 11:57am take [address] [facility] every twenty-four hours Colace 100 MG [...] sources) RNA Synthetase Inhibitor Antibacterial Start: 06-06-19 24 Mupirocin Active 1 APPLIC TOPICAL Twice daily [...] 3; Provider: Harmeet Myers Start: 02-09-2022 Nystatin 90751 0 UNIT/GM 1 application Externally Twice a day for 30 days Feb, Active Completed/Discontinued Medications Medication Drug Class(es) Dates Sig (Normalized) Sig (Original) acetaminophen 325 mg / HYDROcodone bitartrate 5 mg oral tablet (9 sources) Opioid Agonist Start: 11-06-2019 End: 11-06-2019 take 1 tablet by mouth every six hours Hydrocodone-Acetami nophen (Ingram) 5-325 mg tablet Discontinued 1 TAB PO Q6H November 06, 2019 November 06, 2019 9:42am Start: 11-06-2019 End: 11-06-2019 take 1 tablet by mouth every six hours Hydrocodone-Acetaminophen (Ingram) 5-325 mg tablet Discontinued 1 TAB PO Q6H November 06, 2019 November 06, 2019 9:42am Start: 11-06-2019 End: 11-06-2019 take 1 tablet by mouth every six hours Hydrocodone-Acetaminophen (Ingram) 5-325 mg tablet Discontinued 1 TAB PO Q6H November 06, 2019 November 06, 2019 9:42am Start: 11-06-2019 End: 11-06-2019 take 1 tablet by mouth every six hours Hydrocodone-Acetaminophen (Ingram) 5-325 mg tablet Discontinued 1 TAB PO Q6H November 06, 2019 November 06, 2019 8:42am Start: 11-06-2019 End: 11-06-2019 take 1 tablet by mouth every six hours Hydrocodone-Acetaminophen (Ingram) 5-325 mg tablet Discontinued 1 TAB PO Q6H November 06, 2019 November 06, 2019 8:42am Start: 11-06-2019 End: 11-06-2019 take 1 tablet by mouth every six hours Hydrocodone-Acetaminophen (Ingram) 5-325 mg tablet Discontinued 1 TAB PO Q6H November 06, 2019 November 06, 2019 8:42am Start: 11-06-2019 End: 11-06-2019 take 1 tablet by mouth every six hours Hydrocodone-Acetaminophen (Ingram) 5-325 mg tablet Discontinued 1 TAB PO Q6H November 06, 2019 November 06, 2019 8:42am Start: 11-06-2019 End: 11-06-2019 take 1 tablet by mouth every six hours Hydrocodone-Acetaminophen (Ingram) 5-325 mg tablet Discontinued 1 TAB PO Q6H November 06, 2019 November 06, 2019 9:42am Start: 11-06-2019 End: 11-06-2019 take 1 tablet by mouth every six hours Hydrocodone-Acetaminophen (Ingram) 5-325 mg tablet Discontinued 1 TAB PO [...] Tablet Discontinued 5 MG PO Twice daily 60 January 04, [...] daily Bumetanide Discontinued 1 MG PO DAILY@0800 January 04, 2020 12:00am January 09, 2022 [...] January 04, 2020 12:00am January 09, 2022 2:11[facility] levothyroxine sodium 0.15 mg oral tablet (20 [...] [Coronary atherosclerosis of unspecified type of vessel, [place]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] Onset: 02-16-2023 02-16-2023 Chronic Disorders [...] 09-12-2023 ALT [Catalytic activity/Vol] 18 U/L 7-52 [facility] Comment on above: Order Comment: Reaso n for Exam Hypothyroidism, unspecified;Hyperlipidemia Reason for Exam Hypothyroidism, unspecified Performed By: #### T 4F, LIPID, TSH3, CMP #### [facility] [address] [place] [address] [place] Albumin [Mass/volume] in Ser um or Plasma by Bromocresol green (BCG) dye binding methoOrdered By: Feliciano Ga on 09-12-2023 Albumin BCG dye [Mass/Vol] 4.1 g/dL 3.5-5.7 [facility] Alkaline phosphatase [Enzyma tic activity/volume] in Serum or PlasmaOrdered By: Feliciano Ga on 09-12-2023 ALP [Catalytic activity/Vol] 117 U/L High 34-104 [facility] Comment on above: Order Comment: Reaso n for Exam Hypothyroidism, unspecified;Hyperlipidemia Reason for Exam Hypothyroidism, unspecified Performed By: #### T 4F, LIPID, TSH3, CMP #### [facility] [address] [place] [id number] [place] Aspartate aminotransferase [ Enzymatic activity/volume] in Serum or PlasmaOrdered By: Feliciano Ga on 07-08-2024 AST [Catalytic activity/Vol] 29 U/L 13-39 [facility] Comment on above: Order Comment: Reaso n for Exam Hypothyroidism, unspecified;Hyperlipidemia Reason for Exam Hypothyroidism, unspecified Performed By: #### T 4F, LIPID, TSH3, CMP #### [facility] [address] Automated basophil %Ordered By: Feliciano Ga on 09-12-2023 Basophils/100 WBC (Bld) 0.8 % . [facility] Comment on above: Order Comment: Reaso n for Exam Hypothyroidism, unspecified;Hyperlipidemia Performed By: #### C BC #### [address] Automated basophil countOrde red By: Feliciano Ga on 09-12-2023 Basophils (Bld) [#/Vol] 0.0 10*3/uL 0.0-0.2 [facility] Comment on above: Order Comment: Reaso n for Exam Hypothyroidism, unspecified;Hyperlipidemia Result Comment: PERF ORMED BY: [place] [address] PATHOLOGIST FOOD SPECIALIST JAYY SANTA M.D. Performed By: #### C BC #### [address] Automated blood monocyte cou ntOrdered By: Feliciano Ga on 09-12-2023 Monocytes (Bld) [#/Vol] 0.5 10*3/uL 0.0-0.8 [facility] Comment on above: Order Comment: Reaso n for Exam Hypothyroidism, unspecified;Hyperlipidemia Performed By: #### C BC #### [address] Automated eosinophil %Ordere d By: Feliciano Ga on 09-12-2023 Eosinophils/100 WBC (Bld) 10.7 % . [facility] Comment on above: Order Comment: Reaso n for Exam Hypothyroidism, unspecified;Hyperlipidemia Performed By: #### C BC #### [address] Automated eosinophil countOr dered By: Feliciano Ga on 09-12-2023 Eosinophils (Bld) [#/Vol] 0.5 10*3/uL High 0.0-0.45 [facility] Comment on above: Order Comment: Reaso n for Exam Hypothyroidism, unspecified;Hyperlipidemia Performed By: #### C BC #### [address] Automated monocyte %Ordered By: Feliciano Ga on 09-12-2023 Monocytes/100 WBC (Bld) 9.7 % . [facility] Comment on above: Order Comment: Reaso n for Exam Hypothyroidism, unspecified;Hyperlipidemia Performed By: #### C BC #### [address] Automated neutrophil %Ordere d By: Feliciano Ga on 09-12-2023 Neutrophils/100 WBC (Bld) 51.0 % . [facility] Comment on above: Order Comment: Reaso n for Exam Hypothyroidism, unspecified;Hyperlipidemia Performed By: #### C BC #### [address] Bilirubin.total [Mass/volume ] in Serum or PlasmaOrdered By: Feliciano Ga on 09-12-2023 Bilirubin [Mass/Vol] 0.7 mg/dL 0.3-1.0 [facility] Comment on above: Order Comment: Reaso n for Exam Hypothyroidism, unspecified;Hyperlipidemia Reason for Exam Hypothyroidism, unspecified Performed By: #### T 4F, LIPID, TSH3, CMP #### [address] Calcium [Mass/volume] in Ser um or PlasmaOrdered By: Feliciano Ga on 09-12-2023 Calcium [Mass/Vol] 9.7 mg/dL 8.6-10.3 [facility] Comment on above: Order Comment: Reaso n for Exam Hypothyroidism, unspecified;Hyperlipidemia Reason for Exam Hypothyroidism, unspecified Performed By: #### T 4F, LIPID, TSH3, CMP #### [address] Carbon dioxide, total [Moles /volume] in Serum or PlasmaOrdered By: Feliciano Ga on 09-12-2023 CO2 [Moles/Vol] 30.3 mmol/L 21.0-31.0 [facility] Comment on above: Order Comment: Reaso n for Exam Hypothyroidism, unspecified;Hyperlipidemia Reason for Exam Hypothyroidism, unspecified Performed By: #### T 4F, LIPID, TSH3, CMP #### [facility] [address] [place] [address] [place] Chloride [Moles/volume] in S sandor or PlasmaOrdered By: Feliciano Ga on 09-12-2023 Chloride [Moles/Vol] 105 mmol/L 98-107 [facility] Comment on above: Order Comment: Reaso n for Exam Hypothyroidism, unspecified;Hyperlipidemia Reason for Exam Hypothyroidism, unspecified Performed By: #### T 4F, LIPID, TSH3, CMP #### [facility] [address] [place] [address] [place] Cholesterol [Mass/volume] in Serum or PlasmaOrdered By: Feliciano Ga on 09-12-2023 Cholesterol [Mass/Vol] 135 mg/dL Low 140-200 [facility] Comment on above: Chol less than [...] #### T 4F, LIPID, TSH3, CMP #### [facility] [address] [place] [id number] [place] Cholesterol in LDL Calc [Mas s/Vol]Ordered By: Feliciano Ga on 09-12-2023 Cholesterol in LDL [Mass/Vol] 43 mg/dL 0-100 [facility] Comment on above: LDL ATP III CLASSIFI CATIONLDL less than 100 mg/dL OptimalLDL 100-129 mg/dL Near or above optimalLDL 130-159 mg/dL Borderline highLDL 160-189 mg/dL HighLDL greater than 189 mg/dL Very high Cholesterol in VLDL Calc [Ma ss/Vol]Ordered By: Feliciano Ga on 09-12-2023 Cholesterol in VLDL [Mass/Vol] 10 mg/dL [facility] Complete Blood Count Auto Di ffon 09-12-2023 Mean Corpuscular HGB Conc 33.1 g/dL Normal 32.5-35.6 [facility] Comment on above: Order Comment: Reaso n for Exam Hypothyroidism, unspecified;Hyperlipidemia Performed By: #### C BC #### [facility] [address] NRBC% 0.1 /100{WBC} Normal 0-0.5 [facility] Comment on above: Order Comment: Reaso n for Exam Hypothyroidism, unspecified;Hyperlipidemia Performed By: #### C BC #### [facility] [address] Comprehensive Metabolic Pane haley 09-12-2023 Albumin [Mass/Vol] 4.1 g/dL Normal 3.5-5.7 [facility] Comment on above: Order Comment: Reaso n for Exam Hypothyroidism, unspecified;Hyperlipidemia Reason for Exam Hypothyroidism, unspecified Performed By: #### T 4F, LIPID, TSH3, CMP #### [facility] [address] GFR/1.73 sq M.predicted MDRD (S/P/Bld) [Vol rate/Area] mL/min/{1.73_m2} Normal [facility] Comment on above: Order Comment: Reaso n for Exam Hypothyroidism, unspecified;Hyperlipidemia Reason for Exam Hypothyroidism, unspecified Performed By: #### T 4F, LIPID, TSH3, CMP #### [facility] [address] Creatinine [Mass/volume] in Serum or PlasmaOrdered By: Feliciano Ga on 09-12-2023 Creatinine [Mass/Vol] 1.19 mg/dL 0.70-1.30 [facility] Comment on above: Order Comment: Reaso n for Exam Hypothyroidism, unspecified;Hyperlipidemia Reason for Exam Hypothyroidism, unspecified Performed By: #### T 4F, LIPID, TSH3, CMP #### [facility] [address] Erythrocyte distribution wid th [Ratio] by Automated countOrdered By: Feliciano Ga on 09-12-2023 Erythrocyte distribution width (RBC) [Ratio] 13.9 % 12.0-14.8 [facility] Comment on above: Order Comment: Reaso n for Exam Hypothyroidism, unspecified;Hyperlipidemia Performed By: #### C BC #### [facility] [address] Erythrocytes [#/volume] in B lood by Automated countOrdered By: Feliciano Ga on 09-12-2023 RBC (Bld) [#/Vol] 3.73 10*6/uL Low 3.90-5.60 [facility] Comment on above: Order Comment: Reaso n for Exam Hypothyroidism, unspecified;Hyperlipidemia Performed By: #### C BC #### [facility] [address] [place] [address] [place] Glucose [Mass/volume] in Ser um or PlasmaOrdered By: Feliciano Ga on 09-12-2023 Glucose [Mass/Vol] 85 mg/dL 70-100 [facility] Comment on above: ADA recommended refe rence rangeRandom Glucose Reference Range is dependent on time and content of last meal. Glucose of more than 200 mg/dL in a nonstressed, ambulatory subject supports the diagnosis of Diabetes Mellitus. Order Comment: Reaso n for Exam Hypothyroidism, unspecified;Hyperlipidemia Reason for Exam Hypothyroidism, unspecified Result Comment: [place] Glucose Reference Range is dependent on time and content of last meal. Glucose of more than 200 mg/dL in a nonstressed, ambulatory subject supports the diagnosis of Diabetes Mellitus. ADA recommended reference range Performed By: #### T 4F, LIPID, TSH3, CMP #### [facility] [address] [place] [id number] [place] Hematocrit [Volume Fraction] of Blood by Automated countOrdered By: Feliciano Ga on 09-12-2023 Hematocrit (Bld) [Volume fraction] 39.6 % 38.8-50.0 [facility] Comment on above: Order Comment: Reaso n for Exam Hypothyroidism, unspecified;Hyperlipidemia Performed By: #### C BC #### [facility] [address] [place] [id number] [place] Hemoglobin [Mass/volume] in BloodOrdered By: Feliciano Ga on 09-12-2023 Hemoglobin (Bld) [Mass/Vol] 13.1 g/dL 13.0-17.0 [facility] Comment on above: Order Comment: Reaso n for Exam Hypothyroidism, unspecified;Hyperlipidemia Performed By: #### C BC #### [facility] [address] [place] [id number] [facility] Leukocytes [#/volume] correc fern for nucleated erythrocytes in Blood by Automated counOrdered By: Feliciano Ga on 09-12-2023 WBC corrected for nucl RBC Auto (Bld) [#/Vol] 5.0 10*3/uL 4.1-10.5 [facility] Leukocytes [#/volume] in Blo od by Automated countOrdered By: Feliciano Ga on 09-12-2023 WBC (Bld) [#/Vol] 5.0 10*3/uL 4.1-10.5 [facility] Comment on above: Order Comment: Reaso n for Exam Hypothyroidism, unspecified;Hyperlipidemia Performed By: #### C BC #### [facility] [address] [place] [id number] [facility] Lipid Panelon 09-12-2023 LDL Cholesterol,Calculated 43 mg/dL [...] #### T 4F, LIPID, TSH3, CMP #### [facility] [address] [place] [id number] [facility] Triglyceride w/Reflex 53 mg/dL Normal 0-149 The [...] #### T 4F, LIPID, TSH3, CMP #### [address] VLDL CHOLESTEROL 10 mg/dL Normal [facility] Comment on above: Order Comment: Reaso n for Exam Hypothyroidism, unspecified;Hyperlipidemia Reason for Exam Hypothyroidism, unspecified Performed By: #### T 4F, LIPID, TSH3, CMP #### [address] Lymphocytes [#/volume] in Bl ood by Automated countOrdered By: Feliciano Ga on 09-12-2023 Lymphocytes (Bld) [#/Vol] 1.4 10*3/uL 1.00-4.8 [facility] Comment on above: Order Comment: Reaso n for Exam Hypothyroidism, unspecified;Hyperlipidemia Performed By: #### C BC #### [address] Lymphocytes/100 leukocytes i n Blood by Automated countOrdered By: Feliciano Ga on 09-12-2023 Lymphocytes/100 WBC (Bld) 27.8 % . [facility] Comment on above: Order Comment: Reaso n for Exam Hypothyroidism, unspecified;Hyperlipidemia Performed By: #### C BC #### [address] MCH [Entitic mass] by Automa fern countOrdered By: Feliciano Ga on 09-12-2023 MCH (RBC) [Entitic mass] 35.2 pg 27.5-35.2 [facility] Comment on above: Order Comment: Reaso n for Exam Hypothyroidism, unspecified;Hyperlipidemia Performed By: #### C BC #### [address] MCHC Auto (RBC) [Mass/Vol]Or dered By: Feliciano Ga on 09-12-2023 MCHC (RBC) [Mass/Vol] 33.1 g/dL 32.5-35.6 [facility] MCV [Entitic volume] by Auto mated countOrdered By: Feliciano Ga on 09-12-2023 MCV (RBC) [Entitic vol] 106.3 fL High 83.5-101 [facility] Comment on above: Order Comment: Reaso n for Exam Hypothyroidism, unspecified;Hyperlipidemia Performed By: #### C BC #### [address] Neutrophils [#/volume] in Bl ood by Automated countOrdered By: Feliciano Ga on 09-12-2023 Neutrophils (Bld) [#/Vol] 2.6 10*3/uL 1.8-7.7 [facility] Comment on above: Order Comment: Reaso n for Exam Hypothyroidism, unspecified;Hyperlipidemia Performed By: #### C BC #### [facility] [address] [place] [address] No Panel InformationOrdered By: Feliciano Ga on 09-12-2023 Estimated GFR (CKD-EPI) > 60.0 mL/Min [facility] Creatinine Clearance (Chem N/A [facility] Nucleated erythrocytes [Pres ence] in Blood by Automated countOrdered By: Feliciano Ga on 09-12-2023 Nucleated RBC Auto Ql (Bld) 0.1 /100{WBC} 0-0.5 [facility] PSA Screen (Yearly Only)on 0 09-12-2023 PSA Screen (Yearly Only) 2.430 ng/mL Normal 0.000-4.00 0 [facility] Comment on above: Order Comment: Reaso n for Exam Hypothyroidism, unspecified;Hyperlipidemia Reason for Exam Hypothyroidism, unspecified Result Comment: Seri al tumor marker results determined by assays using different manufacturers or methods may not be comparable. [facility] battery repairer and method: [employer] DXI, CHEMILUMINESCENT IMMUNOASSAY. PERFORMED BY: [place] [address] PATHOLOGIST FOOD SPECIALIST JAYY SANTA M.D. Performed By: #### T 4F, LIPID, TSH3, CMP #### [address] Platelet mean volume [Entiti c volume] in Blood by Automated countOrdered By: Feliciano Ga on 09-12-2023 Platelet mean volume (Bld) [Entitic vol] 8.6 fL 6.6-10.1 [facility] Comment on above: Order Comment: Reaso n for Exam Hypothyroidism, unspecified;Hyperlipidemia Performed By: #### C BC #### [facility] [address] Platelets [#/volume] in Bloo d by Automated countOrdered By: Feliciano Ga on 09-12-2023 Platelets (Bld) [#/Vol] 163 10*3/uL 150-450 [facility] Comment on above: Order Comment: Reaso n for Exam Hypothyroidism, unspecified;Hyperlipidemia Performed By: #### C BC #### [facility] [address] Potassium [Moles/volume] in Serum or PlasmaOrdered By: Felciiano Ga on 09-12-2023 Potassium [Moles/Vol] 4.0 mmol/L 3.5-5.1 [facility] Comment on above: Order Comment: Reaso n for Exam Hypothyroidism, unspecified;Hyperlipidemia Reason for Exam Hypothyroidism, unspecified Performed By: #### T 4F, LIPID, TSH3, CMP #### [facility] [address] Prostate specific Ag [Mass/v olume] in Serum or PlasmaOrdered By: Feliciano Ga on 09-12-2023 Prostate specific Ag [Mass/Vol] 2.430 ng/mL 0.000-4.00 0 [facility] Comment on above: Serial tumor marker results determined by assays using different manufacturers or methods may not be comparable.[facility] battery repairer and method:[employer] DXI, CHEMILUMINESCENT IMMUNOASSAY. Protein [Mass/volume] in Ser um or PlasmaOrdered By: Feliciano Ga on 09-12-2023 Protein [Mass/Vol] 6.4 g/dL 6.4-8.9 [facility] Comment on above: Order Comment: Reaso n for Exam Hypothyroidism, unspecified;Hyperlipidemia Reason for Exam Hypothyroidism, unspecified Performed By: #### T 4F, LIPID, TSH3, CMP #### [facility] [address] [place] [id number] [facility] Serum globulin measurement b y calculation (mass/volume)Ordered By: Feliciano Ga on 09-12-2023 Globulin (S) [Mass/Vol] 2.3 g/dL [facility] Comment on above: Order Comment: Reaso n for Exam Hypothyroidism, unspecified;Hyperlipidemia Reason for Exam Hypothyroidism, unspecified Performed By: #### T 4F, LIPID, TSH3, CMP #### [facility] [address] Serum or plasma albumin/glob ulin mass ratioOrdered By: Feliciano Ga on 09-12-2023 Albumin/Globulin [Mass ratio] 1.8 {ratio} [facility] Comment on above: Order Comment: Reaso n for Exam Hypothyroidism, unspecified;Hyperlipidemia Reason for Exam Hypothyroidism, unspecified Performed By: #### T 4F, LIPID, TSH3, CMP #### [facility] [address] [place] [address] Serum or plasma anion gap de terminationOrdered By: Feliciano Ga on 09-12-2023 Anion gap [Moles/Vol] 9.7 mmol/L 6.0-15.0 [facility] Comment on above: Order Comment: Reaso n for Exam Hypothyroidism, unspecified;Hyperlipidemia Reason for Exam Hypothyroidism, unspecified Performed By: #### T 4F, LIPID, TSH3, CMP #### [facility] [address] [place] [address] Serum or plasma high density lipoprotein (HDL) cholesterol measurementOrdered By: Feliciano Ga on 09-12-2023 Cholesterol in HDL [Mass/Vol] 81 mg/dL 23-92 [facility] Comment on above: HDL CHOL ATP-III [...] #### T 4F, LIPID, TSH3, CMP #### [facility] [address] [place] [address] Serum or plasma total choles terol/high density lipoprotein (HDL) cholesterol mass ratOrdered By: Feliciano Ga on 09-12-2023 Cholesterol.total/Chol esterol in HDL [Mass ratio] 1.7 {ratio} <5.0 [facility] Comment on above: Order Comment: Reaso n for Exam Hypothyroidism, unspecified;Hyperlipidemia Reason for Exam Hypothyroidism, unspecified Performed By: #### T 4F, LIPID, TSH3, CMP #### [facility] [address] [place] [address] Sodium [Moles/volume] in Ser um or PlasmaOrdered By: Feliciano Ga on 09-12-2023 Sodium [Moles/Vol] 141 mmol/L 136-145 [facility] Comment on above: Order Comment: Reaso n for Exam Hypothyroidism, unspecified;Hyperlipidemia Reason for Exam Hypothyroidism, unspecified Performed By: #### T 4F, LIPID, TSH3, CMP #### [facility] [address] [place] [address] Thyrotropin [Units/volume] i n Serum or PlasmaOrdered By: Feliciano Ga on 09-12-2023 TSH Qn 0.19 m[IU]/L Low 0.45-5.33 [facility] Comment on above: Order Comment: Reaso n for Exam Hypothyroidism, unspecified;Hyperlipidemia Reason for Exam Hypothyroidism, unspecified Result Comment: PERF ORMED BY: [place] [address] PATHOLOGIST FOOD SPECIALIST JAYY SANTA M.D. Performed By: #### T 4F, LIPID, TSH3, CMP #### [facility] [address] [place] [address] Thyroxine (T4) free [Mass/vo lume] in Serum or PlasmaOrdered By: Feliciano Ga on 09-12-2023 Free T4 [Mass/Vol] 1.24 ng/dL High 0.61-1.12 [facility] Comment on above: Order Comment: Reaso n for Exam Hypothyroidism, unspecified;Hyperlipidemia Reason for Exam Hypothyroidism, unspecified Performed By: #### T 4F, LIPID, TSH3, CMP #### [facility] [address] [place] [address] [place] Triglyceride [Mass/volume] i n Serum or PlasmaOrdered By: Feliciano Ga on 09-12-2023 Triglyceride [Mass/Vol] 53 mg/dL 0-149 [facility] Comment on above: TRIG ATP III CLASSIF ICATIONTRIG less than 150 mg/dL NormalTRIG 150-199 mg/dL Borderline highTRIG 200-500 mg/dL High TRIG greater than 500 mg/dL Very highStandard traceable to the Center for Disease Conrtrol and Prevention (CDC) test method. Urea nitrogen [Mass/volume] in Serum or PlasmaOrdered By: Feliciano Ga on 09-12-2023 Urea nitrogen [Mass/Vol] 26 mg/dL High 7 [facility] Comment on above: Order Comment: Reaso n for Exam Hypothyroidism, unspecified;Hyperlipidemia Reason for Exam Hypothyroidism, unspecified Performed By: #### T 4F, LIPID, TSH3, CMP #### [facility] [address] [place] [address] Alanine aminotransferase [En zymatic activity/volume] in Serum or PlasmaOrdered By: Bhupinder Mcintyre on 07-19-2023 ALT [Catalytic activity/Vol] 37 U/L 7-52 [facility] Comment on above: Performed By: #### A ST, BMP, ALT, LIPID, BNP #### [facility] [address] [place] [address] Aspartate aminotransferase [ Enzymatic activity/volume] in Serum or PlasmaOrdered By: Bhupinder Mcintyre on 07-19-2023 AST [Catalytic activity/Vol] 66 U/L High 13-39 [facility] Comment on above: Performed By: #### A ST, BMP, ALT, LIPID, BNP #### [facility] [address] [place] [address] BNP ser/plasOrdered By: Bhupinder herron on 07-19-2023 Natriuretic peptide B (Bld) [Mass/Vol] 347.0 pg/mL High 5-100 [facility] Comment on above: Result Comment: PERF ORMED BY: [place] [address] PATHOLOGIST FOOD SPECIALIST JAYY SANTA M.D. Performed By: #### A ST, BMP, ALT, LIPID, BNP #### [address] Basic Metabolic Panelon 07-05 GFR/1.73 sq M.predicted MDRD (S/P/Bld) [Vol rate/Area] mL/min/{1.73_m2} Normal [facility] Comment on above: Performed By: #### A ST, BMP, ALT, LIPID, BNP #### [facility] [address] [place] [address] [place] Calcium [Mass/volume] in Ser um or PlasmaOrdered By: Bhupinder Mcintyre on 07-19-2023 Calcium [Mass/Vol] 9.8 mg/dL 8.6-10.3 [facility] Comment on above: Performed By: #### A ST, BMP, ALT, LIPID, BNP #### [address] Carbon dioxide, total [Moles /volume] in Serum or PlasmaOrdered By: Bhupinder Mcintyre on 07-19-2023 CO2 [Moles/Vol] 27.1 mmol/L 21.0-31.0 [facility] Comment on above: Performed By: #### A ST, BMP, ALT, LIPID, BNP #### [facility] [address] [place] [address] [place] Chloride [Moles/volume] in S sandor or PlasmaOrdered By: Bhupinder Mcintyre on 07-19-2023 Chloride [Moles/Vol] 104 mmol/L 98-107 [facility] Comment on above: Performed By: #### A ST, BMP, ALT, LIPID, BNP #### [facility] [address] [place] [address] [place] Cholesterol [Mass/volume] in Serum or PlasmaOrdered By: Bhupinder Mcintyre on 07-19-2023 Cholesterol [Mass/Vol] 152 mg/dL 140-200 [facility] Comment on above: Chol less than 200 m g/dl low riskChol 201-239 mg/dl borderline riskChol 240 mg/dl and greater high risk Result Comment: Chol less than 200 mg/dl low risk Chol 201-239 mg/dl borderline risk Chol 240 mg/dl and greater high risk Performed By: #### A ST, BMP, ALT, LIPID, BNP #### [facility] [address] [place] [id number] [place] Cholesterol in LDL Calc [Mas s/Vol]Ordered By: Bhupinder Mcintyre on 07-19-2023 Cholesterol in LDL [Mass/Vol] 49 mg/dL 0-100 [facility] Comment on above: LDL ATP III CLASSIFI CATIONLDL less than 100 mg/dL OptimalLDL 100-129 mg/dL Near or above optimalLDL 130-159 mg/dL Borderline highLDL 160-189 mg/dL HighLDL greater than 189 mg/dL Very high Cholesterol in VLDL Calc [Ma ss/Vol]Ordered By: Bhupinder Mcintyre on 07-19-2023 Cholesterol in VLDL [Mass/Vol] 17 mg/dL [facility] Creatinine [Mass/volume] in Serum or PlasmaOrdered By: Bhupinder Mcintyre on 07-19-2023 Creatinine [Mass/Vol] 1.14 mg/dL 0.70-1.30 [facility] Comment on above: Performed By: #### A ST, BMP, ALT, LIPID, BNP #### [facility] [address] [place] [id number] [facility] Glucose [Mass/volume] in Ser um or PlasmaOrdered By: Bhupinder Mcintyre on 07-19-2023 Glucose [Mass/Vol] 83 mg/dL 70-100 [facility] Comment on above: ADA recommended refe rence rangeRandom Glucose Reference Range is dependent on time and content of last meal. Glucose of more than 200 mg/dL in a nonstressed, ambulatory subject supports the diagnosis of Diabetes Mellitus. Result Comment: [place] om Glucose Reference Range is dependent on time and content of last meal. Glucose of more than 200 mg/dL in a nonstressed, ambulatory subject supports the diagnosis of Diabetes Mellitus. ADA recommended reference range Performed By: #### A ST, BMP, ALT, LIPID, BNP #### [facility] [address] [place] [id number] [facility] Lipid Panelon 07-19-2023 LDL Cholesterol,Calculated 49 mg/dL Normal 0-100 [facility] Comment on above: Result Comment: LDL ATP III CLASSIFICATION LDL less than 100 mg/dL Optimal LDL 100-129 mg/dL Near or above optimal LDL 130-159 mg/dL Borderline high LDL 160-189 mg/dL High LDL greater than 189 mg/dL Very high Performed By: #### A ST, BMP, ALT, LIPID, BNP #### [address] Triglyceride w/Reflex 85 mg/dL Normal 0-149 [...] A ST, BMP, ALT, LIPID, BNP #### [address] VLDL CHOLESTEROL 17 mg/dL Normal [facility] Comment on above: Performed By: #### A ST, BMP, ALT, LIPID, BNP #### [address] No Panel InformationOrdered By: Bhupinder Mcintyre on 07-19-2023 Estimated GFR (CKD-EPI) > 60.0 mL/Min [facility] Creatinine Clearance (Chem N/A [facility] Potassium [Moles/volume] in Serum or PlasmaOrdered By: Bhupinder Mcintyre on 07-19-2023 Potassium [Moles/Vol] 4.2 mmol/L 3.5-5.1 [facility] Comment on above: Performed By: #### A ST, BMP, ALT, LIPID, BNP #### [address] Serum or plasma anion gap de terminationOrdered By: Bhupinder Mcintyre on 07-19-2023 Anion gap [Moles/Vol] 14.1 mmol/L 6.0-15.0 [facility] Comment on above: Performed By: #### A ST, BMP, ALT, LIPID, BNP #### [address] Serum or plasma high density lipoprotein (HDL) cholesterol measurementOrdered By: Bhupinder Mcintyre on 07-19-2023 Cholesterol in HDL [Mass/Vol] 86 mg/dL - [facility] Comment on above: HDL CHOL ATP-III CLA SSIFICATION Cardiovascular RiskHDL > or equal to 60 mg/dL LOWHDL < 40 mg/dL HIGH Result Comment: HDL CHOL ATP-III CLASSIFICATION Cardiovascular Risk HDL > or equal to 60 mg/dL LOW HDL < 40 mg/dL HIGH Performed By: #### A ST, BMP, ALT, LIPID, BNP #### [facility] [address] [place] [address] Serum or plasma total choles terol/high density lipoprotein (HDL) cholesterol mass ratOrdered By: Bhupinder Mcintyre on 07-19-2023 Cholesterol.total/Chol esterol in HDL [Mass ratio] 1.8 {ratio} <5.0 [facility] Comment on above: Result Comment: PERF ORMED BY: [place] [address] PATHOLOGIST FOOD SPECIALIST JAYY SANTA M.D. Performed By: #### A ST, BMP, ALT, LIPID, BNP #### [address] Sodium [Moles/volume] in Ser um or PlasmaOrdered By: Bhupinder Mcintyre on 07-19-2023 Sodium [Moles/Vol] 141 mmol/L 136-145 [facility] Comment on above: Performed By: #### A ST, BMP, ALT, LIPID, BNP #### [facility] [address] [place] [address] Triglyceride [Mass/volume] i n Serum or PlasmaOrdered By: Bhupinder Mcintyre on 07-19-2023 Triglyceride [Mass/Vol] 85 mg/dL 0-149 [facility] Comment on above: TRIG ATP III CLASSIF ICATIONTRIG less than 150 mg/dL NormalTRIG 150-199 mg/dL Borderline highTRIG 200-500 mg/dL High TRIG greater than 500 mg/dL Very highStandard traceable to the Center for Disease Conrtrol and Prevention (CDC) test method. Urea nitrogen [Mass/volume] in Serum or PlasmaOrdered By: Bhupinder Mcintyre on 07-19-2023 Urea nitrogen [Mass/Vol] 22 mg/dL 7-25 [facility] Comment on above: Performed By: #### A ST, BMP, ALT, LIPID, BNP #### [facility] [address] Alanine aminotransferase [En zymatic activity/volume] in Serum or PlasmaOrdered By: Feliciano Ga on 09-08-2022 ALT [Catalytic activity/Vol] 31 U/L 7-52 [facility] Albumin [Mass/volume] in Ser um or Plasma by Bromocresol green (BCG) dye binding methoOrdered By: Feliciano Ga on 09-08-2022 Albumin BCG dye [Mass/Vol] 4.1 g/dL 3.5-5.7 [facility] Alkaline phosphatase [Enzyma tic activity/volume] in Serum or PlasmaOrdered By: Feliciano Ga on 09-08-2022 ALP [Catalytic activity/Vol] 124 U/L 34-104 [facility] Aspartate aminotransferase [ Enzymatic activity/volume] in Serum or PlasmaOrdered By: Feliciano Ga on 09-08-2022 AST [Catalytic activity/Vol] 47 U/L 13-39 [facility] Basophils Auto (Bld) [#/Vol] Ordered By: Feliciano Ga on 09-08-2022 Basophils (Bld) [#/Vol] 0.0 10*3/uL 0.0-0.2 [facility] Basophils/100 WBC Auto (Bld) Ordered By: Feliciano Ga on 09-08-2022 Basophils/100 WBC (Bld) 1.0 % . [facility] Bilirubin.total [Mass/volume ] in Serum or PlasmaOrdered By: Feliciano Ga on 09-08-2022 Bilirubin [Mass/Vol] 0.7 mg/dL 0.3-1.0 [facility] Calcium [Mass/volume] in Ser um or PlasmaOrdered By: Feliciano Ga on 09-08-2022 Calcium [Mass/Vol] 9.5 mg/dL 8.6-10.3 [facility] Carbon dioxide, total [Moles /volume] in Serum or PlasmaOrdered By: Feliciano Ga on 09-08-2022 CO2 [Moles/Vol] 30.7 mmol/L 21.0-31.0 [facility] Chloride [Moles/volume] in S sandor or PlasmaOrdered By: Feliciano Ga on 09-08-2022 Chloride [Moles/Vol] 107 mmol/L 98-107 [facility] Cholesterol [Mass/volume] in Serum or PlasmaOrdered By: Feliciano Ga on 09-08-2022 Cholesterol [Mass/Vol] 124 mg/dL 140-200 [facility] Comment on above: Chol less than 200 m g/dl low riskChol 201-239 mg/dl borderline riskChol 240 mg/dl and greater high risk Cholesterol in LDL Calc [Mas s/Vol]Ordered By: Feliciano Ga on 09-08-2022 Cholesterol in LDL [Mass/Vol] 44 mg/dL 0-100 [facility] Comment on above: LDL ATP III CLASSIFI CATIONLDL less than 100 mg/dL OptimalLDL 100-129 mg/dL Near or above optimalLDL 130-159 mg/dL Borderline highLDL 160-189 mg/dL HighLDL greater than 189 mg/dL Very high Cholesterol in VLDL Calc [Ma ss/Vol]Ordered By: Feliciano Ga on 09-08-2022 Cholesterol in VLDL [Mass/Vol] 13 mg/dL [facility] Creatinine [Mass/volume] in Serum or PlasmaOrdered By: Feliciano Ga on 09-08-2022 Creatinine [Mass/Vol] 1.18 mg/dL 0.70-1.30 [facility] Eosinophils Auto (Bld) [#/Vo l]Ordered By: Feliciano Ga on 09-08-2022 Eosinophils (Bld) [#/Vol] 0.8 10*3/uL 0.0-0.45 [facility] Eosinophils/100 WBC Auto (Bl d)Ordered By: Feliciano Ga on 09-08-2022 Eosinophils/100 WBC (Bld) 16.6 % . [facility] Erythrocyte distribution wid th Auto (RBC) [Ratio]Ordered By: Feilciano Ga on 09-08-2022 Erythrocyte distribution width (RBC) [Ratio] 14.9 % 12.0-14.8 [facility] Globulin Calc (S) [Mass/Vol] Ordered By: Feliciano Ga on 09-08-2022 Globulin (S) [Mass/Vol] 2.2 g/dL [facility] Glucose [Mass/volume] in Ser um or PlasmaOrdered By: Feliciano Ga on 09-08-2022 Glucose [Mass/Vol] 83 mg/dL 70-100 [facility] Comment on above: ADA recommended refe rence rangeRandom Glucose Reference Range is dependent on time and content of last meal. Glucose of more than 200 mg/dL in a nonstressed, ambulatory subject supports the diagnosis of Diabetes Mellitus. Hematocrit Auto (Bld) [Volum e fraction]Ordered By: Feliciano Ga on 09-08-2022 Hematocrit (Bld) [Volume fraction] 37.1 % 38.8-50.0 [facility] Hemoglobin [Mass/volume] in BloodOrdered By: Feliciano Ga on 09-08-2022 Hemoglobin (Bld) [Mass/Vol] 12.5 g/dL 13.0-17.0 [facility] Leukocytes [#/volume] correc fern for nucleated erythrocytes in Blood by Automated counOrdered By: Feliciano Ga on 09-08-2022 WBC corrected for nucl RBC Auto (Bld) [#/Vol] 4.7 10*3/uL 4.1-10.5 [facility] Lymphocytes Auto (Bld) [#/Vo l]Ordered By: Feliciano Ga on 09-08-2022 Lymphocytes (Bld) [#/Vol] 1.3 10*3/uL 1.00-4.8 [facility] Lymphocytes/100 WBC Auto (Bl d)Ordered By: Feliciano Ga on 09-08-2022 Lymphocytes/100 WBC (Bld) 27.0 % . [facility] MCH Auto (RBC) [Entitic mass ]Ordered By: Feliciano Ga on 09-08-2022 MCH (RBC) [Entitic mass] 33.5 pg 27.5-35.2 [facility] MCHC Auto (RBC) [Mass/Vol]Or dered By: Feliciano Ga on 09-08-2022 MCHC (RBC) [Mass/Vol] 33.6 g/dL 32.5-35.6 [facility] MCV Auto (RBC) [Entitic vol] Ordered By: Feliciano Ga on 09-08-2022 MCV (RBC) [Entitic vol] 99.7 fL 83.5-101 [facility] Monocytes Auto (Bld) [#/Vol] Ordered By: Feliciano Ga on 09-08-2022 Monocytes (Bld) [#/Vol] 0.3 10*3/uL 0.0-0.8 [facility] Monocytes/100 WBC Auto (Bld) Ordered By: Feliciano Ga on 09-08-2022 Monocytes/100 WBC (Bld) 7.2 % . [facility] Natriuretic peptide B [Mass/ Vol]Ordered By: Bhupinder Mcintyre on 09-08-2022 Natriuretic peptide B (Bld) [Mass/Vol] 123.0 pg/mL 5-100 [facility] Neutrophils Auto (Bld) [#/Vo l]Ordered By: Feliciano Ga on 09-08-2022 Neutrophils (Bld) [#/Vol] 2.2 10*3/uL 1.8-7.7 [facility] Neutrophils/100 WBC Auto (Bl d)Ordered By: Feliciano Ga on 09-08-2022 Neutrophils/100 WBC (Bld) 48.2 % . [facility] No Panel Informationon 09-08 123.0\S\123.0 above high threshold 5-100 [facility] lauro 250 DO Work Phone: Comment on above: PERFORMED BY:[place] [address] [place], [place] [id number] MEDICAL DIRECTORJAYY SANTA M.D. No Panel InformationOrdered By: Feliciano Ga on 09-08-2022 Estimated GFR (CKD-EPI) > 60.0 mL/Min [facility] Creatinine Clearance (Chem N/A [facility] Nucleated erythrocytes [Pres ence] in Blood by Automated countOrdered By: Feliciano Ga on 09-08-2022 Nucleated RBC Auto Ql (Bld) 0.2 /100{WBC} 0-0.5 [facility] Platelet mean volume Auto (B ld) [Entitic vol]Ordered By: Feliciano Ga on 09-08-2022 Platelet mean volume (Bld) [Entitic vol] 8.8 fL 6.6-10.1 [facility] Platelets Auto (Bld) [#/Vol] Ordered By: Feliciano Ga on 09-08-2022 Platelets (Bld) [#/Vol] 155 10*3/uL 150-450 [facility] Potassium [Moles/volume] in Serum or PlasmaOrdered By: Feliciano Ga on 09-08-2022 Potassium [Moles/Vol] 4.0 mmol/L 3.5-5.1 [facility] Prostate specific Ag [Mass/v olume] in Serum or PlasmaOrdered By: Feliciano Ga on 09-08-2022 Prostate specific Ag [Mass/Vol] 2.140 ng/mL 0.000-4.00 0 [facility] Protein [Mass/volume] in Ser um or PlasmaOrdered By: Feliciano Ga on 09-08-2022 Protein [Mass/Vol] 6.3 g/dL 6.4-8.9 [facility] RBC Auto (Bld) [#/Vol]Ordere d By: Feliciano Ga on 09-08-2022 RBC (Bld) [#/Vol] 3.73 10*6/uL 3.90-5.60 [facility] Serum or plasma albumin/glob ulin mass ratioOrdered By: Feliciano Ga on 09-08-2022 Albumin/Globulin [Mass ratio] 1.9 {ratio} [facility] Serum or plasma anion gap de terminationOrdered By: Feliciano Ga on 09-08-2022 Anion gap [Moles/Vol] 8.3 mmol/L 6.0-15.0 [facility] Serum or plasma high density lipoprotein (HDL) cholesterol measurementOrdered By: Feliciano Ga on 09-08-2022 Cholesterol in HDL [Mass/Vol] 67 mg/dL 23-92 [facility] Comment on above: HDL CHOL ATP-III CLA SSIFICATION Cardiovascular RiskHDL > or equal to 60 mg/dL LOWHDL < 40 mg/dL HIGH Serum or plasma total choles terol/high density lipoprotein (HDL) cholesterol mass ratOrdered By: Feliciano Ga on 09-08-2022 Cholesterol.total/Chol esterol in HDL [Mass ratio] 1.9 {ratio} <5.0 [facility] Sodium [Moles/volume] in Ser um or PlasmaOrdered By: Feliciano Ga on 09-08-2022 Sodium [Moles/Vol] 142 mmol/L 136-145 [facility] Thyrotropin [Units/volume] i n Serum or PlasmaOrdered By: Feliciano Ga on 09-08-2022 TSH Qn 0.46 m[IU]/L 0.45-5.33 [facility] Thyroxine (T4) free [Mass/vo lume] in Serum or PlasmaOrdered By: Feliciano Ga on 09-08-2022 Free T4 [Mass/Vol] 1.28 ng/dL 0.61-1.12 [facility] Triglyceride [Mass/volume] i n Serum or PlasmaOrdered By: Feliciano Ga on 09-08-2022 Triglyceride [Mass/Vol] 66 mg/dL 0-149 [facility] Comment on above: TRIG ATP III CLASSIF ICATIONTRIG less than 150 mg/dL NormalTRIG 150-199 mg/dL Borderline highTRIG 200-500 mg/dL High TRIG greater than 500 mg/dL Very highStandard traceable to the Center for Disease Conrtrol and Prevention (CDC) test method. Urea nitrogen [Mass/volume] in Serum or PlasmaOrdered By: Feliciano Ga on 09-08-2022 Urea nitrogen [Mass/Vol] 22 mg/dL 7-25 [facility] WBC Auto (Bld) [#/Vol]Ordere d By: Feliciano Ga on 09-08-2022 WBC (Bld) [#/Vol] 4.7 10*3/uL 4.1-10.5 [facility] Office Visit (Cardiology)on 07-07-2022 Follow-up visit [...] of Cardiac catheterization History of Complete colonoscopy [facility] History of Epidural steroid injection History of [...] other sy (more content not included)... Normal [employer] Tobacco Screening.on 023 Tobacco use status [facility] b) No [facility] lauro 250 DO Work Phone: [...] RONALD ISRAEL Date: 2022-05-13 09:51 Normal [facility] Cardiovasc Arrhythmia Result son 03-15-2022 Cardiovasc Arrhythmia Results Reason For Visit Reason for Visit: Holter Monitor: IRINEO is here for the application of a 24 hour Holter monitor. Ordering Physician: Enedelia Aguillon NP Diagnosis: afib NO equipment agreement signed. IRINEO understands monitor is to be returned on: 03/16/2022 Monitor number [id number] applied. Holter monitor printed and placed on [...] Appointments Date/TimeProviderSpecialty Site 07/07/2022 09:20 Irineo Link, [id number] [address] 250 DO Signatures Electronically signed by : Marv Urena MD; Mar 19 2022 6:25PM EST (Author) Electronically signed by : Enedelia Gomez APRN-BASS SINGER; Mar 22 2022 9:37AM EST (Author) Normal [facility] Creatinine and Glomerular fi ltration rate.predicted panel (S/P/Bld)Ordered By: Enedelia Gomez on 03-11-2022 Creatinine [Mass/Vol] 1.28 mg/dL 0.64-1.27 [facility] Estimated glomerular filtrat ion rate (GFR) non- AmericanOrdered By: Enedelia Gomez on 03-11-2022 GFR/1.73 sq M.predicted among non-blacks MDRD (S/P/Bld) [Vol rate/Area] 54 mL/Min [facility] No Panel InformationOrdered By: Enedelia Gomez on 03-11-2022 Estimated GFR () > 60 mL/Min [facility] Comment on above: GFR estimated refere nce range: According to KDOQI guidelines, <60 ml/min/1.73m2 is sufficient to diagnose a patient with chronic kidney disease. Pharmacy Creatinine Clearance (Chem N/A [facility] No Panel Informationon 03-11 10.1\S\10.1 Normal 6.0-15.0 [facility] lauro 250 DO Work Phone: 9.9\S\9.9 Normal 8.2-10.2 [facility] lauro 250 DO Work Phone: Comment on above: PERFORMED BY:[facility] [place], [place] [phone] MEDICAL DIRECTORJAYY SANTA M.D. 30.5\S\30.5 above high threshold 22.0-30.0 [facility] lauro 250 DO Work Phone: [phone] 100\S\100 Normal 95-[address] [facility] Harpreet restrepo 250 DO Work Phone: 3.6\S\3.6 Normal 3.5-5.[address] [facility] Harpreet restrepo 250 DO Work Phone: 137\S\137 Normal 136-[address] [facility] Harpreet restrepo 250 DO Work Phone: > [address] [facility] Harpreet restrepo 250 DO Work Phone: Comment on above: GFR estimated refere nce range: According to KDOQI guidelines, <60 ml/min/1.73m2 is sufficient to diagnose a patient with chronic kidney disease. 54\S\[address] [facility] Harpreet restrepo 250 DO Work Phone: 1.28\S\1.28 above high threshold 0.64-1.[address] [facility] Harpreet restrepo 250 DO Work Phone: 17\S\17 Normal 9-[address] [facility] Harpreet restrepo 250 DO Work Phone: 96\S\96 Normal 70-[address] [facility] Harpreet restrepo 250 DO Work [...] gap [Moles/Vol] 10.1 mmol/L 6.0-15.0 [facility] Serum or plasma calcium alistair urement (mass/volume)Ordered By: Enedelia Gomez on 03-11-2022 Calcium [Mass/Vol] 9.9 mg/dL 8.2-10.2 [facility] Serum or plasma chloride jaymie surement (moles/volume)Ordered By: Enedelia Gomez on 03-11-2022 Chloride [Moles/Vol] 100 mmol/L 95-114 [facility] Serum or plasma glucose alistair urement (mass/volume)Ordered By: Enedelia Gomez on 03-11-2022 Glucose [Mass/Vol] 96 mg/dL 70-100 [facility] Comment on above: ADA recommended refe rence rangeRandom Glucose Reference Range is dependent on time and content of last meal. Glucose of more than 200 mg/dL in a nonstressed, ambulatory subject supports the diagnosis of Diabetes Mellitus. Serum or plasma potassium me asurement (moles/volume)Ordered By: Enedelia Gomez on 03-11-2022 Potassium [Moles/Vol] 3.6 mmol/L 3.5-5.1 [facility] Serum or plasma sodium measu rement (moles/volume)Ordered By: Enedelia Gomez on 03-11-2022 Sodium [Moles/Vol] 137 mmol/L 136-146 [facility] Serum or plasma total carbon dioxide measurement (moles/volume)Ordered By: Enedelia Gomez on 03-11-2022 CO2 [Moles/Vol] 30.5 mmol/L 22.0-30.0 [facility] Serum or plasma urea nitroge n measurement (mass/volume)Ordered By: Enedelia Gomez on 03-11-2022 Urea nitrogen [Mass/Vol] 17 mg/dL 9-23 [facility] Office Visit (Cardiology)on 03-10-2022 Follow-up visit [...] Mcintyre July 2021. 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 He denies any palpitations or fast heartbeats. [...] of Cardiac catheterization History of Complete colonoscopy [facility] History of Epidural steroid injection History of [...] TabletTAKE 1 (more content not included)... Normal [employer] Tobacco Screening.on 023 Adult depression screening assessment No [facility] [employer] DO Work Phone: Fall risk assessment b) One or more fall s in the last year [facility] [employer] DO Work Phone: Tobacco use status CPHS b) No [facility] [employer] DO Work Phone: Basophils Auto (Bld) [#/Vol] Ordered By: Raji Ennis on 01-16-2022 Basophils (Bld) [#/Vol] 0.1 10*3/uL 0.0-0.2 [facility] Basophils/100 WBC Auto (Bld) Ordered By: Raji Ennis on 01-16-2022 Basophils/100 WBC (Bld) 1.0 % . [facility] Creatinine and Glomerular fi ltration rate.predicted panel (S/P/Bld)Ordered By: Raji Ennis on 01-16-2022 Creatinine [Mass/Vol] 1.56 mg/dL 0.64-1.27 [facility] Eosinophils Auto (Bld) [#/Vo l]Ordered By: Raji Ennis on 01-16-2022 Eosinophils (Bld) [#/Vol] 0.4 10*3/uL 0.0-0.45 [facility] Eosinophils/100 WBC Auto (Bl d)Ordered By: Raji Ennis on 01-16-2022 Eosinophils/100 WBC (Bld) 5.6 % . [facility] Erythrocyte distribution wid th Auto (RBC) [Ratio]Ordered By: Raji Ennis on 01-16-2022 Erythrocyte distribution width (RBC) [Ratio] 15.3 % 12.0-14.8 [facility] Estimated glomerular filtrat ion rate (GFR) non- AmericanOrdered By: Raji Ennis on 01-16-2022 GFR/1.73 sq M.predicted among non-blacks MDRD (S/P/Bld) [Vol rate/Area] 43 mL/Min [facility] Hematocrit Auto (Bld) [Volum e fraction]Ordered By: Raji Ennis on 01-16-2022 Hematocrit (Bld) [Volume fraction] 35.4 % 38.8-50.0 [facility] Hemoglobin [Mass/volume] in BloodOrdered By: Raji Ennis on 01-16-2022 Hemoglobin (Bld) [Mass/Vol] 11.8 g/dL 13.0-17.0 [facility] Laboratory - Hematology and Cell countsOrdered By: Raji Ennis on 01-16-2022 Nucleated RBC/100 WBC (Bld) [Ratio] 0.0 % 0-0.5 [facility] Leukocytes [#/volume] in Blo od by Automated countOrdered By: Raji Raymon on 01-16-2022 WBC (Bld) [#/Vol] 6.5 10*3/uL 4.5-11.0 [facility] Lymphocytes Auto (Bld) [#/Vo l]Ordered By: Raji Raymon on 01-16-2022 Lymphocytes (Bld) [#/Vol] 1.1 10*3/uL 1.00-4.8 [facility] Lymphocytes/100 WBC Auto (Bl d)Ordered By: Raji Raymon on 01-16-2022 Lymphocytes/100 WBC (Bld) 17.1 % . [facility] MCH Auto (RBC) [Entitic mass ]Ordered By: Raji Raymon on 01-16-2022 MCH (RBC) [Entitic mass] 33.2 pg 27.5-35.2 [facility] MCHC Auto (RBC) [Mass/Vol]Or dered By: Raji Raymon on 01-16-2022 MCHC (RBC) [Mass/Vol] 33.3 g/dL 32.5-35.6 [facility] MCV Auto (RBC) [Entitic vol] Ordered By: Raji Raymon on 01-16-2022 MCV (RBC) [Entitic vol] 100.0 fL 83.5-101 [facility] Monocytes Auto (Bld) [#/Vol] Ordered By: Raji Raymon on 01-16-2022 Monocytes (Bld) [#/Vol] 0.8 10*3/uL 0.0-0.8 [facility] Monocytes/100 WBC Auto (Bld) Ordered By: Raji Raymon on 01-16-2022 Monocytes/100 WBC (Bld) 11.9 % . [facility] Neutrophils Auto (Bld) [#/Vo l]Ordered By: Raji Raymon on 01-16-2022 Neutrophils (Bld) [#/Vol] 4.2 10*3/uL 1.8-7.7 [facility] Neutrophils/100 WBC Auto (Bl d)Ordered By: Raji Raymon on 01-16-2022 Neutrophils/100 WBC (Bld) 64.4 % . [facility] No Panel InformationOrdered By: Raji Raymon on 01-16-2022 Estimated GFR () 52 mL/Min [facility] Comment on above: GFR estimated refere nce range: According to KDOQI guidelines, <60 ml/min/1.73m2 is sufficient to diagnose a patient with chronic kidney disease. Pharmacy Creatinine Clearance (Chem 39.79 [facility] Platelet mean volume Auto (B ld) [Entitic vol]Ordered By: Raji Raymon on 01-16-2022 Platelet mean volume (Bld) [Entitic vol] 9.1 fL 6.6-10.1 [facility] Platelets Auto (Bld) [#/Vol] Ordered By: Raji Raymon on 01-16-2022 Platelets (Bld) [#/Vol] 195 10*3/uL 150-450 [facility] RBC Auto (Bld) [#/Vol]Ordere d By: Raji Raymon on 01-16-2022 RBC (Bld) [#/Vol] 3.54 10*6/uL 3.90-5.60 [facility] Serum or plasma anion gap de terminationOrdered By: Raji Raymon on 01-16-2022 Anion gap [Moles/Vol] 11.4 mmol/L 6.0-15.0 [facility] Serum or plasma calcium alistair urement (mass/volume)Ordered By: Raji Raymon on 01-16-2022 Calcium [Mass/Vol] 9.0 mg/dL 8.2-10.2 [facility] Serum or plasma chloride jaymie surement (moles/volume)Ordered By: RajiRobertson on 01-16-2022 Chloride [Moles/Vol] 95 mmol/L 95-114 [facility] Serum or plasma glucose alistair urement (mass/volume)Ordered By: RajiRobertson on 01-16-2022 Glucose [Mass/Vol] 87 mg/dL 70-100 [facility] Comment on above: ADA recommended refe rence rangeRandom Glucose Reference Range is dependent on time and content of last meal. Glucose of more than 200 mg/dL in a nonstressed, ambulatory subject supports the diagnosis of Diabetes Mellitus. Serum or plasma potassium me asurement (moles/volume)Ordered By: Raji Ennis on 01-16-2022 Potassium [Moles/Vol] 4.0 mmol/L 3.5-5.1 [facility] Serum or plasma sodium measu rement (moles/volume)Ordered By: Raji Ennis on 01-16-2022 Sodium [Moles/Vol] 132 mmol/L 136-146 [facility] Serum or plasma total carbon dioxide measurement (moles/volume)Ordered By: Raji Ennis on 01-16-2022 CO2 [Moles/Vol] 29.6 mmol/L 22.0-30.0 [facility] Serum or plasma urea nitroge n measurement (mass/volume)Ordered By: Raji Ennis on 01-16-2022 Urea nitrogen [Mass/Vol] 29 mg/dL 9-23 [facility] Urine culture routineOrdered By: Frankie Reynolds on 01-15-2022 Bacteria identified Cx Nom (U) No Growth 2 Days [facility] Automated erythrocytes count in urine sediment (number/area)Ordered By: Frankie Reynolds on 01-13-2022 RBC Auto (Urine sed) [#/Area] 50-100 [HPF] 0-4 [facility] Automated leukocytes count i n urine sediment (number/area)Ordered By: Frankie Reynolds on 01-13-2022 WBC Auto (Urine sed) [#/Area] 5-9 [HPF] 0-4 [facility] Bilirubin Test strip Ql (U)O rdered By: Frankie Reynolds on 01-13-2022 Bilirubin Ql (U) Negative Negative [facility] Color Auto (U)Ordered By: Brigitte Reynolds on 01-13-2022 Color (U) Yellow Yellow [facility] Ketones Auto test strip (U) [Mass/Vol]Ordered By: Frankie Reynolds on 01-13-2022 Ketones (U) [Mass/Vol] Negative Negative [facility] Laboratory - UrinalysisOrder ed By: Frankie Reynolds on 01-13-2022 Hyaline casts LM Ql (Urine sed) 0-8 [LPF] 0-8 [facility] Nitrite Test strip Ql (U)Ord ered By: Frankie Reynolds on 01-13-2022 Nitrite Ql (U) Negative Negative [facility] Protein Auto test strip (U) [Mass/Vol]Ordered By: Frankie Reynolds on 01-13-2022 Protein (U) [Mass/Vol] 30 mg/dL Negative [facility] Serum or plasma uric acid me asurement (mass/volume)Ordered By: Frankie Reynolds on 01-13-2022 Urate [Mass/Vol] 4.7 mg/dL 2.6-7.2 [facility] Serum or plasma vancomycin m easurement (mass/volume)Ordered By: Raji Ennis on 01-13-2022 Vancomycin [Mass/Vol] 9.7 ug/mL 5.0-20.0 [facility] Comment on above: Last dose: - Specific gravity Auto test s trip (U) [Rel density]Ordered By: Frankie Reynolds on 01-13-2022 Specific gravity (U) [Rel density] 1.012 1.001-1.03 0 [facility] Squamous epithelial cells de tection in urine sediment by light microscopyOrdered By: Frankie Reynolds on 01-13-2022 Epithelial cells.squamous LM Ql (Urine sed) 0-1 [HPF] 0-2 [facility] Urine bacteria detection by automated methodOrdered By: Frankie Reynolds on 01-13-2022 Bacteria Auto Ql (U) None seen None Seen [facility] Urine clarity by refractomet ry automatedOrdered By: Frankie Reynolds on 01-13-2022 Clarity Refractometry automated (U) Clear Clear [facility] Urine culture routineOrdered By: Frankie Reynolds on 01-13-2022 Bacteria identified Cx Nom (U) No Growth 2 Days [facility] Urine glucose measurement by automated test strip (mass/volume)Ordered By: Frankie Reynolds on 01-13-2022 Glucose Auto test strip (U) [Mass/Vol] Normal mg/dL Normal [facility] Urine hemoglobin detection b y automated test stripOrdered By: Frankie Reynolds on 01-13-2022 Hemoglobin Auto test strip Ql (U) 3+ Negative [facility] Urine leukocyte esterase det ection by automated test stripOrdered By: Frankie Reynolds on 01-13-2022 Leukocyte esterase Auto test strip Ql (U) 2+ Negative [facility] Urobilinogen Auto test strip (U) [Mass/Vol]Ordered By: Frankie Reynolds on 01-13-2022 Urobilinogen (U) [Mass/Vol] Normal mg/dL Normal [facility] pH Auto test strip (U)Ordere d By: Frankie Reynolds on 01-13-2022 pH (U) 5.5 [pH] 5.0-9.0 [facility] Bacterial blood cultureOrder ed By: Raji Ennis on 01-12-2022 Bacteria identified Cx Nom (Bld) NO GROWTH 5 DAYS [facility] C reactive protein [Mass/vol ume] in Serum or PlasmaOrdered By: Raji Ennis on 01-12-2022 CRP [Mass/Vol] 8.4 mg/dL 0.0-1.0 [facility] Albumin [Mass/volume] in Ser um or PlasmaOrdered By: Vikas Mane on 01-11-2022 Albumin [Mass/Vol] 2.9 g/dL 2.9-4.4 [facility] IgA [Mass/volume] in Serum o r PlasmaOrdered By: Vikas Mane on 01-11-2022 IgA [Mass/Vol] 171 mg/dL 61-437 [facility] IgG [Mass/volume] in Serum o r PlasmaOrdered By: Vikas Mane on 01-11-2022 IgG [Mass/Vol] 816 mg/dL 603-1613 [facility] IgM [Mass/volume] in Serum o r PlasmaOrdered By: Vikas Mane on 01-11-2022 IgM [Mass/Vol] 105 mg/dL 15-143 [facility] Comment on above: Performed at: [facility] [address] [id number] Director: Patrick Ortiz PhD, Phone: [phone] No Panel InformationOrdered By: Vikas Mane on 01-11-2022 Protein Electrophoresis M-Franky Not observed g/dL Not Observed [facility] Protein Electrophoresis Note See comment . [facility] Comment on above: Protein electrophore sis scan will follow via computer,mail, or curtain cutter delivery.Performed at: [employer] [facility] [address] [id number] Director: Patrick Ortiz PhD, Phone: [phone] Serum Immunofixation See comment . [facility] Comment on above: No monoclonality det ected. Protein [Mass/volume] in Ser um or PlasmaOrdered By: Vikas Mane on 01-11-2022 Protein [Mass/Vol] 5.3 g/dL 6.0-8.5 [facility] Serum globulin measurement ( mass/volume)Ordered By: Vikas Mane on 01-11-2022 Globulin (S) [Mass/Vol] 2.4 g/dL 2.2-3.9 [facility] Serum or plasma albumin/glob ulin mass ratioOrdered By: Vikas Mane on 01-11-2022 Albumin/Globulin [Mass ratio] 1.2 {ratio} 0.7-1.7 [facility] Serum or plasma alpha 1 glob ulin measurement by electrophoresis (mass/volume)Ordered By: Vikas Mane on 01-11-2022 Alpha 1 globulin Elph [Mass/Vol] 0.4 g/dL 0.0-0.4 [facility] Serum or plasma alpha 2 glob ulin measurement by electrophoresis (mass/volume)Ordered By: Vikas Mane on 01-11-2022 Alpha 2 globulin Elph [Mass/Vol] 0.7 g/dL 0.4-1.0 [facility] Serum or plasma beta globuli n measurement by electrophoresis (mass/volume)Ordered By: Vikas Mane on 01-11-2022 Beta globulin Elph [Mass/Vol] 0.6 g/dL 0.7-1.3 [facility] Serum or plasma gamma globul in measurement by electrophoresis (mass/volume)Ordered By: Vikas Mane on 01-11-2022 Gamma globulin Elph [Mass/Vol] 0.8 g/dL 0.4-1.8 [facility] Folate [Mass/volume] in Seru m or PlasmaOrdered By: Dharmesh Zavala on 01-10-2022 Folate [Mass/Vol] 8.8 ng/mL >5.9 [facility] Comment on above: Folate reference ran ge: >5.9 ng/mlThe WHO technical consultation on folate and vitamin [id number] has determined that folate concentrations lessthan 4 ng/ml are considered deficient. Glucose mean value [Mass/vol ume] in Blood Estimated from glycated hemoglobinOrdered By: Dharmesh Zavala on 01-10-2022 Average glucose Estimated from glycated hemoglobin (Bld) [Mass/Vol] 114 mg/dL [facility] Hemoglobin A1c percentageOrd ered By: Dharmesh Zavala on 01-10-2022 HbA1c (Bld) [Mass fraction] 5.6 % 4.3-5.6 [facility] Comment on above: Increased risk for d iabetes: 5.7 - 6.4diabetes: >6.4glycemic control for adults with diabetes: <7.0 Iron [Mass/volume] in Serum or PlasmaOrdered By: Dharmesh Zavala on 01-10-2022 Iron [Mass/Vol] 13 ug/dL 40-160 [facility] Laboratory - Chemistry and C hemistry - challengeOrdered By: Dharmesh Zavala on 01-10-2022 Cobalamin (Vitamin B12) [Mass/Vol] 458 pg/mL 180-914 [facility] Magnesium [Mass/Vol] 1.9 mg/dL 1.6-2.6 [facility] Natriuretic peptide B (Bld) [Mass/Vol] 679.0 pg/mL 5-100 [facility] TSH DL <= 0.005 mIU/L QnOrde red By: Dharmesh Zavala on 01-10-2022 TSH Qn 3.99 m[IU]/L 0.45-5.33 [facility] Troponin I.cardiac [Mass/vol ume] in Serum or Plasma by High sensitivity methodOrdered By: Dharmesh Zavala on 01-10-2022 Troponin I.cardiac High sensitivity method [Mass/Vol] 110 pg/mL 0-20 [facility] Comment on above: Results calledat 080 8 on 01/10/22 Activated partial thrombopla stin time (aPTT) in platelet poor plasma by coagulation aOrdered By: Frankie Paiz on 01-09-2022 aPTT Coag (PPP) [Time] 39.1 s 25.1-36.5 [facility] Automated erythrocytes count in urine sediment (number/area)Ordered By: Frankie Paiz on 01-09-2022 RBC Auto (Urine sed) [#/Area] 0-1 [HPF] 0-4 [facility] Automated leukocytes count i n urine sediment (number/area)Ordered By: Frankie Paiz on 01-09-2022 WBC Auto (Urine sed) [#/Area] 5-9 [HPF] 0-4 [facility] Basophils Auto (Bld) [#/Vol] Ordered By: Frankie Paiz on 01-09-2022 Basophils (Bld) [#/Vol] 0.1 10*3/uL 0.0-0.2 [facility] Basophils/100 WBC Auto (Bld) Ordered By: Frankie Paiz on 01-09-2022 Basophils/100 WBC (Bld) 1.0 % . [facility] Bilirubin Test strip Ql (U)O rdered By: Frankie Paiz on 01-09-2022 Bilirubin Ql (U) Negative Negative [facility] COVID-19 Positive/NegativeOr dered By: Frankie Paiz on 01-09-2022 SARS-CoV-2 (COVID-19) N gene SMITHA+probe Ql (Resp) Negative Negative [facility] Comment on above: Testing for SARS-CoV -2 by RT-PCRThis test was developed and its performance characteristics determined by [employer] ([employer]) and validated at the [facility]. This test has not been FDA [...] (COVID-19) Ag IA.rapid Ql (Resp) Negative Negative [facility] Comment on above: This is a duplicate Veronica SARS Antigen (MADHAVI) result to be used for statistical tracking purpose only. Color Auto (U)Ordered By: Brigitte Paiz on 01-09-2022 Color (U) Yellow Yellow [facility] Creatine kinase [Enzymatic a ctivity/volume] in Serum or PlasmaOrdered By: Frankie Paiz on 01-09-2022 CK [Catalytic activity/Vol] 231 U/L 22-269 [facility] Creatinine and Glomerular fi ltration rate.predicted panel (S/P/Bld)Ordered By: Frankie Paiz on 01-09-2022 Creatinine [Mass/Vol] 1.62 mg/dL 0.64-1.27 [facility] Eosinophils Auto (Bld) [#/Vo l]Ordered By: Frankie Paiz on 01-09-2022 Eosinophils (Bld) [#/Vol] 0.0 10*3/uL 0.0-0.45 [facility] Eosinophils/100 WBC Auto (Bl d)Ordered By: Frankie Paiz on 01-09-2022 Eosinophils/100 WBC (Bld) 0.1 % . [facility] Erythrocyte distribution wid th Auto (RBC) [Ratio]Ordered By: Frankie Paiz on 01-09-2022 Erythrocyte distribution width (RBC) [Ratio] 15.9 % 12.0-14.8 [facility] Estimated glomerular filtrat ion rate (GFR) non- AmericanOrdered By: Frankie Paiz on 01-09-2022 GFR/1.73 sq M.predicted among non-blacks MDRD (S/P/Bld) [Vol rate/Area] 41 mL/Min [facility] Hematocrit Auto (Bld) [Volum e fraction]Ordered By: Frankie Pazi on 01-09-2022 Hematocrit (Bld) [Volume fraction] 36.5 % 38.8-50.0 [facility] Hemoglobin [Mass/volume] in BloodOrdered By: Frankie Paiz on 01-09-2022 Hemoglobin (Bld) [Mass/Vol] 12.1 g/dL 13.0-17.0 [facility] Ketones Auto test strip (U) [Mass/Vol]Ordered By: Frankie Paiz on 01-09-2022 Ketones (U) [Mass/Vol] Trace Negative [facility] Laboratory - Chemistry and C hemistry - challengeOrdered By: Frankie Paiz on 01-09-2022 Natriuretic peptide B (Bld) [Mass/Vol] 1810.0 pg/mL 5-100 [facility] Laboratory - CoagulationOrde red By: Frankie Paiz on 01-09-2022 PT Coag (PPP) [Time] 28.4 s 9.0-12.9 [facility] Laboratory - Hematology and Cell countsOrdered By: Frankie Paiz on 01-09-2022 Nucleated RBC/100 WBC (Bld) [Ratio] 0.1 % 0-0.5 [facility] Laboratory - UrinalysisOrder ed By: Frankie Paiz on 01-09-2022 Hyaline casts LM Ql (Urine sed) 0-8 [LPF] 0-8 [facility] Leukocytes [#/volume] in Blo od by Automated countOrdered By: Frankie Paiz on 01-09-2022 WBC (Bld) [#/Vol] 6.0 10*3/uL 4.5-11.0 [facility] Lymphocytes Auto (Bld) [#/Vo l]Ordered By: Frankie Paiz on 01-09-2022 Lymphocytes (Bld) [#/Vol] 0.8 10*3/uL 1.00-4.8 [facility] Lymphocytes/100 WBC Auto (Bl d)Ordered By: Frankie Paiz on 01-09-2022 Lymphocytes/100 WBC (Bld) 13.5 % . [facility] MCH Auto (RBC) [Entitic mass ]Ordered By: Frankie Paiz on 01-09-2022 MCH (RBC) [Entitic mass] 33.7 pg 27.5-35.2 [facility] MCHC Auto (RBC) [Mass/Vol]Or dered By: Frankie Paiz on 01-09-2022 MCHC (RBC) [Mass/Vol] 33.2 g/dL 32.5-35.6 [facility] MCV Auto (RBC) [Entitic vol] Ordered By: Frankie Paiz on 01-09-2022 MCV (RBC) [Entitic vol] 101.5 fL 83.5-101 [facility] Monocytes Auto (Bld) [#/Vol] Ordered By: Frankie Paiz on 01-09-2022 Monocytes (Bld) [#/Vol] 0.9 10*3/uL 0.0-0.8 [facility] Monocytes/100 WBC Auto (Bld) Ordered By: Frankie Paiz on 01-09-2022 Monocytes/100 WBC (Bld) 14.2 % . [facility] Neutrophils Auto (Bld) [#/Vo l]Ordered By: Frankie Paiz on 01-09-2022 Neutrophils (Bld) [#/Vol] 4.3 10*3/uL 1.8-7.7 [facility] Neutrophils/100 WBC Auto (Bl d)Ordered By: Frankie Paiz on 01-09-2022 Neutrophils/100 WBC (Bld) 71.2 % . [facility] Nitrite Test strip Ql (U)Ord ered By: Frankie Paiz on 01-09-2022 Nitrite Ql (U) Negative Negative [facility] No Panel InformationOrdered By: Frankie Paiz on 01-09-2022 SARS Antigen (LFIA) [facility] Estimated GFR () 50 mL/Min [facility] Comment on above: GFR estimated refere nce range: According to KDOQI guidelines, <60 ml/min/1.73m2 is sufficient to diagnose a patient with chronic kidney disease. Pharmacy Creatinine Clearance (Chem 39.44 [facility] SARS Antigen (LFIA) [facility] Platelet mean volume Auto (B ld) [Entitic vol]Ordered By: Frankie Paiz on 01-09-2022 Platelet mean volume (Bld) [Entitic vol] 8.3 fL 6.6-10.1 [facility] Platelet poor plasma interna tional normalized ratio (INR) by coagulation assay (relatOrdered By: Frankie Paiz on 01-09-2022 INR Coag (PPP) [Relative time] 2.5 {INR} [facility] Comment on above: INR Therapeutic Rang [...] 01-09-2022 Platelets (Bld) [#/Vol] 162 10*3/uL 150-450 [facility] Protein Auto test strip (U) [Mass/Vol]Ordered By: Frankie Paiz on 01-09-2022 Protein (U) [Mass/Vol] Trace mg/dL Negative [facility] RBC Auto (Bld) [#/Vol]Ordere d By: Frankie Paiz on 01-09-2022 RBC (Bld) [#/Vol] 3.59 10*6/uL 3.90-5.60 [facility] Serum or plasma anion gap de terminationOrdered By: Frankie Paiz on 01-09-2022 Anion gap [Moles/Vol] 14.9 mmol/L 6.0-15.0 [facility] Serum or plasma calcium alistair urement (mass/volume)Ordered By: Frankie Paiz on 01-09-2022 Calcium [Mass/Vol] 9.2 mg/dL 8.2-10.2 [facility] Serum or plasma chloride jaymie surement (moles/volume)Ordered By: Frankie Paiz on 01-09-2022 Chloride [Moles/Vol] 100 mmol/L 95-114 [facility] Serum or plasma creatine kin ase MB (CKMB)/total creatine kinase (CK) ratio by calculaOrdered By: Frankie Paiz on 01-09-2022 CK.MB Calc [Catalytic fraction] 2.3 % 0.00-2.50 [facility] Serum or plasma creatine kin ase MB measurement (mass/volume)Ordered By: Frankie Paiz on 01-09-2022 CK.MB [Mass/Vol] 5.4 ng/mL 0.6-6.3 [facility] Serum or plasma glucose alistair urement (mass/volume)Ordered By: Frankie Paiz on 01-09-2022 Glucose [Mass/Vol] 99 mg/dL 70-100 [facility] Comment on above: ADA recommended refe rence rangeRandom Glucose Reference Range is dependent on time and content of last meal. Glucose of more than 200 mg/dL in a nonstressed, ambulatory subject supports the diagnosis of Diabetes Mellitus. Serum or plasma potassium me asurement (moles/volume)Ordered By: Frankie Paiz on 01-09-2022 Potassium [Moles/Vol] 4.1 mmol/L 3.5-5.1 [facility] Serum or plasma sodium measu rement (moles/volume)Ordered By: Frankie Paiz on 01-09-2022 Sodium [Moles/Vol] 136 mmol/L 136-146 [facility] Serum or plasma total carbon dioxide measurement (moles/volume)Ordered By: Frankie Paiz on 01-09-2022 CO2 [Moles/Vol] 25.2 mmol/L 22.0-30.0 [facility] Serum or plasma urea nitroge n measurement (mass/volume)Ordered By: Frankie Paiz on 01-09-2022 Urea nitrogen [Mass/Vol] 21 mg/dL 9-23 [facility] Specific gravity Auto test s trip (U) [Rel density]Ordered By: Frankie Paiz on 01-09-2022 Specific gravity (U) [Rel density] 1.018 1.001-1.03 0 [facility] Squamous epithelial cells de tection in urine sediment by light microscopyOrdered By: Frankie Paiz on 01-09-2022 Epithelial cells.squamous LM Ql (Urine sed) 0-1 [HPF] 0-2 [facility] Troponin I.cardiac [Mass/vol ume] in Serum or Plasma by High sensitivity methodOrdered By: Frankie Paiz on 01-09-2022 Troponin I.cardiac High sensitivity method [Mass/Vol] 101 pg/mL 0-20 [facility] Comment on above: Results calledat 120 8 on 01/09/22 Urine bacteria detection by automated methodOrdered By: Frankie Paiz on 01-09-2022 Bacteria Auto Ql (U) None seen None Seen [facility] Urine clarity by refractomet ry automatedOrdered By: Frankie Paiz on 01-09-2022 Clarity Refractometry automated (U) Cloudy Clear [facility] Urine glucose measurement by automated test strip (mass/volume)Ordered By: Frankie Paiz on 01-09-2022 Glucose Auto test strip (U) [Mass/Vol] Normal mg/dL Normal [facility] Urine hemoglobin detection b y automated test stripOrdered By: Frankie Paiz on 01-09-2022 Hemoglobin Auto test strip Ql (U) Negative Negative [facility] Urine leukocyte esterase det ection by automated test stripOrdered By: Frankie Paiz on 01-09-2022 Leukocyte esterase Auto test strip Ql (U) 2+ Negative [facility] Urobilinogen Auto test strip (U) [Mass/Vol]Ordered By: Frankie Paiz on 01-09-2022 Urobilinogen (U) [Mass/Vol] Normal mg/dL Normal [facility] Yeast detection in urine sed iment by light microscopyOrdered By: Frankie Paiz on 01-09-2022 Yeast LM Ql (Urine sed) None seen [HPF] None Seen [facility] pH Auto test strip (U)Ordere d By: Frankie Paiz on 01-09-2022 pH (U) 5.5 [pH] 5.0-9.0 [facility] Body fluid albumin measureme nt (mass/volume)Ordered By: Feliciano Ga on 12-17-2021 Albumin (Body fld) [Mass/Vol] 3.5 g/dL 3.2-5.5 [facility] Creatinine and Glomerular fi ltration rate.predicted panel (S/P/Bld)Ordered By: Feliciano Ga on 12-17-2021 Creatinine [Mass/Vol] 1.29 mg/dL 0.64-1.27 [facility] Estimated glomerular filtrat ion rate (GFR) non- AmericanOrdered By: Feliciano Ga on 12-17-2021 GFR/1.73 sq M.predicted among non-blacks MDRD (S/P/Bld) [Vol rate/Area] 54 mL/Min [facility] Globulin Calc (S) [Mass/Vol] Ordered By: Feliciano Ga on 12-17-2021 Globulin (S) [Mass/Vol] 2.2 g/dL [facility] No Panel InformationOrdered By: Feliciano Ga on 12-17-2021 Estimated GFR () > 60 mL/Min [facility] Comment on above: GFR estimated refere nce range: According to KDOQI guidelines, <60 ml/min/1.73m2 is sufficient to diagnose a patient with chronic kidney disease. Pharmacy Creatinine Clearance (Chem N/A [facility] Protein [Mass/volume] in Ser um or PlasmaOrdered By: Feliciano Ga on 12-17-2021 Protein [Mass/Vol] 5.7 g/dL 6.1-7.9 [facility] Serum or plasma alanine alvarez otransferase measurement without P-5'-P (enzymatic activiOrdered By: Feliciano Ga on 12-17-2021 ALT No additional P-5'-P [Catalytic activity/Vol] 19 U/L 10-60 [facility] Serum or plasma albumin/glob ulin mass ratioOrdered By: Feliciano Ga on 12-17-2021 Albumin/Globulin [Mass ratio] 1.6 {ratio} [facility] Serum or plasma alkaline harish sphatase measurement (enzymatic activity/volume)Ordered By: Feliciano Ga on 12-17-2021 ALP [Catalytic activity/Vol] 92 U/L 32-92 [facility] Serum or plasma anion gap de terminationOrdered By: Feliciano Ga on 12-17-2021 Anion gap [Moles/Vol] 15.3 mmol/L 6.0-15.0 [facility] Serum or plasma aspartate am inotransferase measurement (enzymatic activity/volume)Ordered By: Feliciano Ga on 12-17-2021 AST [Catalytic activity/Vol] 27 U/L 10-42 [facility] Serum or plasma calcium alistair urement (mass/volume)Ordered By: Feliciano Ga on 12-17-2021 Calcium [Mass/Vol] 9.6 mg/dL 8.2-10.2 [facility] Serum or plasma chloride jaymie surement (moles/volume)Ordered By: Feliciano Ga on 12-17-2021 Chloride [Moles/Vol] 103 mmol/L 95-114 [facility] Serum or plasma glucose alistair urement (mass/volume)Ordered By: Feliciano Ga on 12-17-2021 Glucose [Mass/Vol] 84 mg/dL 70-100 [facility] Comment on above: ADA recommended refe rence rangeRandom Glucose Reference Range is dependent on time and content of last meal. Glucose of more than 200 mg/dL in a nonstressed, ambulatory subject supports the diagnosis of Diabetes Mellitus. Serum or plasma potassium me asurement (moles/volume)Ordered By: Feliciano Ga on 12-17-2021 Potassium [Moles/Vol] 4.5 mmol/L 3.5-5.1 [facility] Serum or plasma sodium measu rement (moles/volume)Ordered By: Feliciano Ga on 12-17-2021 Sodium [Moles/Vol] 139 mmol/L 136-146 [facility] Serum or plasma total biliru bin measurement (mass/volume)Ordered By: Feliciano Ga on 12-17-2021 Bilirubin [Mass/Vol] 1.2 mg/dL 0.3-1.2 [facility] Serum or plasma total carbon dioxide measurement (moles/volume)Ordered By: Feliciano Ga on 12-17-2021 CO2 [Moles/Vol] 25.2 mmol/L 22.0-30.0 [facility] Serum or plasma urea nitroge n measurement (mass/volume)Ordered By: Feliciano Ga on 12-17-2021 Urea nitrogen [Mass/Vol] 16 mg/dL 9-23 [facility] TSH DL <= 0.005 mIU/L QnOrde red By: Feliciano Ga on 12-17-2021 TSH Qn 1.83 m[IU]/L 0.45-5.33 [facility] Thyroxine (T4) free [Mass/vo lume] in Serum or PlasmaOrdered By: Feliciano Ga on 12-17-2021 Free T4 [Mass/Vol] 1.09 ng/dL 0.61-1.12 [facility] Office Visit (Cardiology)on 08-04-2021 Follow-up visit [...] of Cardiac catheterization History of Complete colonoscopy [facility] History of Hip replacement History of Knee [...] Screening.on 022 Adult depression screening assessment No [facility] [employer] 250 DO Work Phone: Fall risk assessment b) One or more fall s in the last year [facility] 250 DO Work Phone: Tobacco use status [facility] b) No [facility] [employer] 250 DO Work Phone: Tobacco Screening.on 021 Fall risk assessment b) One or more fall s in the last year [facility] [employer] 250 DO Work Phone: Tobacco use status [facility] b) No [facility] [employer] 250 DO Work Phone: Coding Summary.on 12-16-2016 Coding Summary. 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) use of anticoagulants Z96.649 Presence of [...] Bynum Date Saved: 12/16/2016 09:56 am Normal [facility] Inpatient Patient Summaryon 12-15-2016 Inpatient Patient Summary [place] [id number] [place] [id number] Clinical SummaryPerson Information Name: IRINEO WALLIS Age: 76 Years : 1940 12:00 AM Sex: Male PCP: NONE, XXXX Marital Status: Race:White Ethnicity:Non- or Language:Angolan Visit Id: Visit Reason:BPH WITH OBSTRUCTION Speciality: Acuity: Enc Type: Outpatient Med Service: Surgery Arrival:12/15/2016 8:36 AM Discharge: Dispo Type: Address:[address] [id number] Provider Notes: Diagnosis: Problems No Problems Documented [...] EU - Urolift Discharge Instructions (CUSTOM) Normal [facility] Main OR Intraoperative Recor don 12-15-2016 Main OR Intraoperative Record IntraOp Document Type FTURO Summary Primary Physician: Dontrell Good MD Finalized Date/Time: 12/15/16 09:47:51 Pt. Name: IRINEO WALLIS.O.B./Sex: 1940 Male Med Rec #: [id number] Physician: Dontrell Good MD Financial #: [id number] Pt. 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 Yes Yes Yes Last Modified By: Fanta FLORES, BARRYOR, LEONARD Jewell RN, LEONARD Jewell RN, Olive 12/15/16 Olive 12/15/16 Olive 12/15/16 09:45:31 09:45:31 09:45:31 Post-Care Text: The patient is free from signs and symptoms of injury caused by extraneous objects Case Comments Finalized By: LEONARD Jewell RN, Ruthann Document Signatures Signed By: LEONARD Jewell RN, Ruthann 12/15/16 09:46 LEONARD Jewell RN, Ruthann 12/15/16 09:47 Normal [facility] Main OR Preoperative Recordo n 12-15-2016 Main OR Preoperative Record Holding Area Document Type FTURO Summary Primary Physician: Dontrell Good MD Finalized Date/Time: 12/15/16 09:34:53 Pt. Name: IRINEO WALLIS/Sex: 1940 Male Med Rec #: [id number] Physician: Dontrell Good MD Financial #: [id number] Pt. Type: O Room/Bed: / Admit/Disch: 12/15/16 [...] Complaints of Pain: No Skin Integrity Intact, [place], Warm, & Dry Vitals - EU Blood Pressure 107/68 Pulse 78 bpm Respirations 16 br/min SPO2 Additional None RN Reviewed Yes Specimens Collected Last Modified By: LEONARD Jewell RN, Ruthann 12/15/16 09:30:48 Finalized By: LEONARD Jewell RN, Ruthann Document Signatures Signed By: LEONARD Jewell RN, Ruthann 12/15/16 09:30 Ingris Goel 12/15/16 09:09 LEONARD Jewell RN, Ruthann 12/15/16 09:34 Normal [facility] Operative Reporton Operative Report Patient: LEAH [...] procedure (10 mg diazepam, 5/325 mg of Ingram), Local Anesthesia (60cc 2% Xylocaine liquid inserted [...] procedure well and was subsequently discharged home. [facility] Comment on above: Result Comment: Elec tronically Signed By: Florentino TIDWELL, Dontrell Roe\.br\Date and Time Signed: 12/15/16 09:49 EDT Vital Signs Date Time Vital Sign Value Performing Clinician Facility 09-21-2023 10:00-0400 Body height 167.64 cm DO Feliciano [employer] Work Phone: [facility] 09-21-2023 10:00-0400 Body mass index (BMI) [Ratio] 29.8 kg/m2 DO Feliciano Crowderys Work Phone: [facility] 09-21-2023 10:00-0400 Body weight 83.91 kg DO Feliciano [employer] Work Phone: [facility] 09-21-2023 10:00-0400 Diastolic blood pressure 74 mm[Hg] DO Feliciano [employer] Work Phone: [facility] 09-21-2023 10:00-0400 Heart rate 72 /min DO Feliciano [employer] Work Phone: [facility] 09-21-2023 10:00-0400 Respiratory rate 16 /min DO Feliciano [employer] Work Phone: [facility] 09-21-2023 10:00-0400 Systolic blood pressure 134 mm[Hg] DO Felicianoamadou Ga Work Phone: [facility] 07-13-2023 10:30-0400 Diastolic blood pressure 78 mm[Hg] Irineo Mcintyre DO Work Phone: [facility] 07-13-2023 10:30-0400 Systolic blood pressure 132 mm[Hg] Irineo Mcintyre DO Work Phone: [facility] 07-13-2023 09:57-0400 Body height 167.6 cm Irineo Mcintyre DO Work Phone: [facility] 07-13-2023 09:57-0400 Body mass index (BMI) [Ratio] 29.8 kg/m2 Irineo Mcintyre DO Work Phone: [facility] 07-13-2023 09:57-0400 Body weight 83.73 kg Irineo Mcintyre DO Work Phone: [facility] 07-13-2023 09:57-0400 Heart rate 60 /min Irineo Mcintyre DO Work Phone: [facility] 03-18-2023 09:15-0500 Body height 167.64 cm Feliciano Ga Other [employer] Other 03-18-2023 09:15-0500 Body mass index (BMI) [Ratio] 29.7 kg/m2 Feliciano Ga Other [employer] Other 03-18-2023 09:15-0500 Body weight 83.46 kg Feliciano aG Other [employer] Other 03-18-2023 09:15-0500 Diastolic blood pressure 80 mm[Hg] Feliciano Ga Other [employer] Other 03-18-2023 09:15-0500 Respiratory rate 16 /min Feliciano Ga Other [employer] Other 03-18-2023 09:15-0500 SaO2% (BldA) [Mass fraction] 97 % Feliciano Ga Other [employer] Other 03-18-2023 09:15-0500 Systolic blood pressure 124 mm[Hg] Feliciano Ga Other [employer] Other 09-15-2022 09:15-0400 Body height 167.64 cm Feliciano Ga Other [employer] Other 09-15-2022 09:15-0400 Body mass index (BMI) [Ratio] 28.11 kg/m2 Feliciano Ga Other [employer] Other 09-15-2022 09:15-0400 Body weight 79.02 kg Feliciano Ga Other [employer] Other 09-15-2022 09:15-0400 Diastolic blood pressure 70 mm[Hg] Feliciano Ga Other [employer] Other 09-15-2022 09:15-0400 Respiratory rate 16 /min Feliciano Ga Other [employer] Other 09-15-2022 09:15-0400 SaO2% (BldA) [Mass fraction] 96 % Feliciano Ga Other [employer] Other 09-15-2022 09:15-0400 Systolic blood pressure 112 mm[Hg] Feliciano Ga Other [employer] Other 07-07-2022 09:36-0400 Body height 167.64 cm Feliciano Ga Work Phone: [facility] 250 DO Work Phone: 07-07-2022 09:36-0400 Body mass index (BMI) [Ratio] 28.89 kg/m2 Feliciano Ga Work Phone: [facility] 250 DO Work Phone: 07-07-2022 09:36-0400 Body surface area Derived from formula 1.91 m2 Feliciano Ga Work Phone: [facility] 250 DO Work Phone: 07-07-2022 09:36-0400 Body weight 81.19 kg Feliciano Ga Work Phone: [facility] 250 DO Work Phone: 07-07-2022 09:36-0400 Diastolic blood pressure 84 mm[Hg] Feliciano Ga Work Phone: [facility] 250 DO Work Phone: 07-07-2022 09:36-0400 Heart rate 76 /min Feliciano Ga Work Phone: [facility] 250 DO Work Phone: 07-07-2022 09:36-0400 Systolic blood pressure 128 mm[Hg] Feliciano Ga Work Phone: [facility] 250 DO Work Phone: 06-07-2022 10:15-0400 Body height 167.64 cm Feliciano Ga Other [employer] Other 06-07-2022 10:15-0400 Body mass index (BMI) [Ratio] 29.7 kg/m2 Feliciano Ga Other [employer] Other 06-07-2022 10:15-0400 Body weight 83.46 kg Feliciano Ga Other [facility] Other 06-07-2022 10:15-0400 Diastolic blood pressure 60 mm[Hg] Feliciano Clarecatie Other [facility] [employer] Other 06-07-2022 10:15-0400 Respiratory rate 16 /min Feliciano Clarecatie Other [facility] Other 06-07-2022 10:15-0400 SaO2% (BldA) [Mass fraction] 96 % Feliciano Clarecatie Other [facility] Other 06-07-2022 10:15-0400 Systolic blood pressure 120 mm[Hg] Feliciano Clarecatie Other [facility] Other 03-10-2022 14:47-0500 Body height 167.64 cm Feliciano Ga Work Phone: [facility] [employer] 250 DO Work Phone: 03-10-2022 14:47-0500 Body mass index (BMI) [Ratio] 30.18 kg/m2 Felicianoamadou Ga Work Phone: [facility] 250 DO Work Phone: 03-10-2022 14:47-0500 Body surface area Derived from formula 1.94 m2 Feliciano Ga Work Phone: [facility] 250 DO Work Phone: 03-10-2022 14:47-0500 Body weight 84.82 kg Feliciano Ga Work Phone: [facility] 250 DO Work Phone: 03-10-2022 14:47-0500 Diastolic blood pressure 90 mm[Hg] Feliciano Louis Clarecatie Work Phone: [facility] [employer] 250 DO Work Phone: 03-10-2022 14:47-0500 Heart rate 72 /min Feliciano Ga Work Phone: [facility] [employer] 250 DO Work Phone: 03-10-2022 14:47-0500 Systolic blood pressure 128 mm[Hg] Felicianoamadou Ga Work Phone: [facility] [employer] 250 DO Work Phone: 03-09-2022 13:30-0500 Body height 142.24 cm Feliciano Ga Other [employer] Other 03-09-2022 13:30-0500 Body mass index (BMI) [Ratio] 42.82 kg/m2 Feliciano Ga Other [employer] Other 03-09-2022 13:30-0500 Body weight 86.64 kg Feliciano Ga Other [employer] Other 03-09-2022 13:30-0500 Diastolic blood pressure 78 mm[Hg] Feliciano Ga Other [employer] Other 03-09-2022 13:30-0500 Respiratory rate 16 /min Feliciano Ga Other [employer] Other 03-09-2022 13:30-0500 SaO2% (BldA) [Mass fraction] 96 % Feliciano Ga Other [employer] Other 03-09-2022 13:30-0500 Systolic blood pressure 136 mm[Hg] Feliciano Ga Other [employer] Other 02-09-2022 15:45-0500 Body height 142.24 cm Felicianoamadou Spencercatie Other [employer] Other 02-09-2022 15:45-0500 Body mass index (BMI) [Ratio] 44.92 kg/m2 Feliciano Ga Other [employer] Other 02-09-2022 15:45-0500 Body weight 90.9 kg Feliciano Ga Other [employer] Other 02-09-2022 15:45-0500 Diastolic blood pressure 83 mm[Hg] Feliciano Ga Other [employer] Other 02-09-2022 15:45-0500 Respiratory rate 16 /min Feliciano Ga Other [employer] Other 02-09-2022 15:45-0500 SaO2% (BldA) [Mass fraction] 98 % Feliciano Ga Other [employer] Other 02-09-2022 15:45-0500 Systolic blood pressure 124 mm[Hg] Feliciano Ga Other [employer] Other 01-16-2022 11:37-0500 Body temperature 98.1 [degF] DO Felicianoamadou Spencers Work Phone: [facility] 01-16-2022 11:37-0500 Diastolic blood pressure 71 mm[Hg] DO Feliciano Kuns Work Phone: [facility] 01-16-2022 11:37-0500 Heart rate 79 /min DO Felicianoamadou Spencers Work Phone: [facility] 01-16-2022 11:37-0500 Respiratory rate 16 /min DO Feliciano Spencers Work Phone: [facility] 01-16-2022 11:37-0500 SaO2% (BldA) [Mass fraction] 97 % DO Felicianoamadou Spencers Work Phone: [facility] 01-16-2022 11:37-0500 Systolic blood pressure 124 mm[Hg] DO Feliciano Spencers Work Phone: [facility] 01-16-2022 04:10-0500 Body weight 90.5 kg DO Feliciano Ga Work Phone: [facility] 01-13-2022 16:00-0500 Inhaled oxygen flow rate 1 L/min DO Feliciano Spencers Work Phone: [facility] 01-11-2022 13:55-0500 Body height 167.64 cm DO Feliciano Ga Work Phone: [facility] 01-09-2022 14:00-0400 Diastolic blood pressure 74 mm[Hg] DO Feliciano Spencers Work Phone: [facility] 01-09-2022 14:00-0400 Heart rate 67 /min DO Feliciano Spencers Work Phone: [facility] 01-09-2022 14:00-0400 Inhaled oxygen flow rate 3 L/min DO Feliciano Spencers Work Phone: [facility] 01-09-2022 14:00-0400 Respiratory rate 19 /min DO Feliciano Spencers Work Phone: [facility] 01-09-2022 14:00-0400 SaO2% (BldA) [Mass fraction] 99 % DO Feliciano Clares Work Phone: [facility] 01-09-2022 14:00-0400 Systolic blood pressure 145 mm[Hg] DO Feliciano Clares Work Phone: [facility] 01-09-2022 09:41-0400 Body temperature 97.2 [degF] DO Feliciano Ga Work Phone: [facility] 01-09-2022 09:38-0400 Body height 167.64 cm DO Feliciano Ga Work Phone: [facility] 01-09-2022 09:38-0400 Body weight 96 kg DO Feliciano Ga Work Phone: [facility] 01-07-2022 13:45-0400 Body height 142.24 cm Feliciano Ga Other [employer] Other 01-07-2022 13:45-0400 Body mass index (BMI) [Ratio] 48.42 kg/m2 Feliciano Ga Other [employer] Other 01-07-2022 13:45-0400 Body weight 97.98 kg Feliciano Ga Other [employer] Other 01-07-2022 13:45-0400 Diastolic blood pressure 62 mm[Hg] Feliciano Ga Other [employer] Other 01-07-2022 13:45-0400 Respiratory rate 16 /min Feliciano Ga Other [employer] Other 01-07-2022 13:45-0400 SaO2% (BldA) [Mass fraction] 94 % Feliciano Ga Other [employer] Other 01-07-2022 13:45-0400 Systolic blood pressure 122 mm[Hg] Feliciano Ga Other [employer] Other 10-12-2021 09:00-0400 Body height Feliciano Ga Other [employer] Other 10-12-2021 09:00-0400 Body mass index (BMI) [Ratio] 32.83 kg/m2 Feliciano Ga Other [employer] Other 10-12-2021 09:00-0400 Body weight 92.26 kg Feliciano Ga Other [employer] Other 10-12-2021 09:00-0400 Diastolic blood pressure 54 mm[Hg] Feliciano Ga Other [employer] Other 10-12-2021 09:00-0400 Respiratory rate 16 /min Feliciano Ga Other [employer] Other 10-12-2021 09:00-0400 SaO2% (BldA) [Mass fraction] 95 % Feliciano Ga Other [employer] Other 10-12-2021 09:00-0400 Systolic blood pressure 110 mm[Hg] Feliciano Ga Other [employer] Other 09-11-2021 10:00-0400 Body height Feliciano Ga Other [employer] Other 09-11-2021 10:00-0400 Diastolic blood pressure 52 mm[Hg] Feliciano Ga Other [employer] Other 09-11-2021 10:00-0400 Respiratory rate 16 /min Feliciano Ga Other [employer] Other 09-11-2021 10:00-0400 SaO2% (BldA) [Mass fraction] 96 % Feliciano Ga Other [facility] Other 09-11-2021 10:00-0400 Systolic blood pressure 102 mm[Hg] Feliciano Ga Other [facility] Other 08-31-2021 12:00-0400 Body height Feliciano Ga Other [facility] Other 08-31-2021 12:00-0400 Diastolic blood pressure 70 mm[Hg] Feliciano Ga Other [facility] Other 08-31-2021 12:00-0400 Systolic blood pressure 130 mm[Hg] Feliciano Ga Other [facility] Other 08-04-2021 14:17-0400 Body height 167.64 cm Feliciano Ga Work Phone: [facility] [employer] 250 DO Work Phone: 08-04-2021 14:17-0400 Body mass index (BMI) [Ratio] 33.09 kg/m2 Feliciano Ga Work Phone: [facility] [employer] 250 DO Work Phone: 08-04-2021 14:17-0400 Body surface area Derived from formula 2.02 m2 Feliciano Ga Work Phone: [facility] [employer] 250 DO Work Phone: 08-04-2021 14:17-0400 Body weight 92.99 kg Feliciano Ga Work Phone: [facility] [employer] 250 DO Work Phone: 08-04-2021 14:17-0400 Diastolic blood pressure 56 mm[Hg] Feliciano Ga Work Phone: [facility] [employer] 250 DO Work Phone: 08-04-2021 14:17-0400 Heart rate 54 /min Feliciano Ga Work Phone: [facility] 250 DO Work Phone: 08-04-2021 14:17-0400 Systolic blood pressure 108 mm[Hg] Feliciano Ga Work Phone: [facility] [employer] 250 DO Work Phone: 01-19-2021 09:30-0500 Body height Feliciano Ga Other [employer] Other 01-19-2021 09:30-0500 Body mass index (BMI) [Ratio] 33.67 kg/m2 Feliciano Ga Other [employer] Other 01-19-2021 09:30-0500 Body weight 94.62 kg Feliciano Ga Other [employer] Other 01-19-2021 09:30-0500 Diastolic blood pressure 62 mm[Hg] Feliciano Ga Other [employer] Other 01-19-2021 09:30-0500 Respiratory rate 16 /min Feliciano Ga Other [employer] Other 01-19-2021 09:30-0500 SaO2% (BldA) [Mass fraction] 96 % Feliciano Ga Other [employer] Other 01-19-2021 09:30-0500 Systolic blood pressure 116 mm[Hg] Feliciano Ga Other [employer] Other 01-05-2021 15:22-0400 Body height 167.64 cm Feliciano Ga Work Phone: [facility] 250 DO Work Phone: 01-05-2021 15:22-0400 Body mass index (BMI) [Ratio] 33.25 kg/m2 Felicianoamadou Ga Work Phone: [facility] 250 DO Work Phone: 01-05-2021 15:22-0400 Body surface area Derived from formula 2.03 m2 Felicianoamadou Ga Work Phone: [facility] 250 DO Work Phone: 01-05-2021 15:22-0400 Body weight 93.44 kg Felicianoamadou Ga Work Phone: [facility] 250 DO Work Phone: 01-05-2021 15:22-0400 Diastolic blood pressure 84 mm[Hg] Feliciano Louis Ga Work Phone: [facility] 250 DO Work Phone: 01-05-2021 15:22-0400 Heart rate 56 /min Felicianoamadou Ga Work Phone: [facility] 250 DO Work Phone: 01-05-2021 15:22-0400 Systolic blood pressure 126 mm[Hg] Feliciano Ga Work Phone: [facility] 250 DO Work Phone: Encounters Encounter Date Encounter Type Care Provider Facility Start: 10-10-2023 End: 10-10-2023 ambulatory Diana Price MD Facility: [facility] Start: 09-21-2023 End: 09-21-2023 ambulatory DO Feliciano Ga Work Phone: [facility] Work Phone: Start: 09-21-2023 End: 09-21-2023 Patient encounter procedure DO Felicianoamadou Spencercatie Work Phone: [facility] [place] Work Phone: Start: 09-12-2023 End: 09-12-2023 Patient encounter procedure DO Feliciano Ga Work Phone: [facility] [place] Work Phone: Start: 09-12-2023 End: 09-12-2023 ambulatory DO Felicianoamadou Spencercatie Work Phone: [facility] Work Phone: Start: 07-19-2023 End: 07-19-2023 Patient encounter procedure DO Felicianoamadou Spencercatie Work Phone: [facility] [place] Work Phone: Start: 07-19-2023 End: 07-19-2023 ambulatory Feliciano Ga Facility:[facility] Start: 07-13-2023 End: 07-13-2023 ambulatory [facility] Ambulatory Start: 07-13-2023 End: 07-13-2023 Office outpatient visit 25 minutes [facility] DO Work Phone: [facility] Comment on above: Chronic atrial fibri llation (Multi); Essential hypertension, benign; Heart failure, NYHA class 2 (Multi); Hyperlipidemia, unspecified hyperlipidemia type Start: 04-18-2023 End: 04-18-2023 ambulatory Diana Price MD Facility:[facility] Start: 04-04-2023 End: 04-04-2023 ambulatory Diana Price MD Facility:[facility] Start: 03-18-2023 End: 03-18-2023 ambulatory Feliciano Ga Other [employer] Other Start: 03-18-2023 Office outpatient vi sit 25 minutes Feliciano Ga [facility] [place] Start: 03-14-2023 End: 03-14-2023 ambulatory Diana Price MD Facility:[facility] Start: 01-10-2023 End: 01-10-2023 ambulatory Diana Price MD Facility:[facility] Start: 12-31-2022 End: 12-31-2022 ambulatory Feliciano Ga Other [employer] Other Start: 12-31-2022 Telephone encounter Feliciano Ga [facility] Start: 12-06-2022 End: 12-06-2022 ambulatory Feliciano Ga Other [employer] Other Start: 12-06-2022 Telephone encounter Feliciano Ga [facility] Start: 11-30-2022 End: 11-30-2022 ambulatory Feliciano Ga Other [employer] Other Start: 11-30-2022 Telephone encounter Feliciano Ga [facility] Start: 10-14-2022 ambulatory DOMINIC WALLACE . Facili ty:[facility] Start: 09-15-2022 End: 09-15-2022 ambulatory Feliciano Ga Other [employer] Other Start: 09-15-2022 Office outpatient vi sit 15 minutes Feliciano Ga [facility] Start: 09-10-2022 Chart Update Feliciano Ga Work Phone: [facility] 250 DO Work Phone: Start: 09-08-2022 Telephone encounter Feliciano Ga [facility] Start: 09-08-2022 End: 09-08-2022 ambulatory DO Feliciano Ga Work Phone: [facility] Work Phone: Start: 09-08-2022 End: 09-08-2022 Patient encounter procedure DO Feliciano Ga Work Phone: [facility] [place] Work Phone: Start: 08-30-2022 Rx Renewal Feliciano Ga Work Phone: [facility] 250 DO Work Phone: Start: 07-08-2022 End: 07-09-2022 ambulatory YANNI CAICEDO . Facility:[facility] Start: 07-07-2022 Office outpatient vi sit 15 minutes Feliciano Ga Work Phone: [facility] 250 DO Work Phone: Start: 07-07-[address] Feliciano Ga Facility: Start: 06-07-2022 End: 06-07-2022 ambulatory Feliciano Ga Other [employer] Other Start: 06-07-2022 Office outpatient vi sit 25 minutes [facility] Start: 06-01-2022 End: 06-01-2022 ambulatory Feliciano Ga Other [employer] Other Start: 06-01-2022 Telephone encounter Feliciano Ga [facility] [place] Start: 05-13-2022 End: 05-14-2022 ambulatory EDILMA MANDEL Facility:[facility] Start: 05-11-2022 End: 05-11-2022 ambulatory Feliciano Ga Other [employer] Other Start: 05-11-2022 Telephone encounter Feliciano Ga [facility] [place] Start: 04-15-2022 End: 04-16-[address] TROY BRAMBILA . Facility:[facility] Start: 04-12-2022 End: 04-12-2022 ambulatory DO Feliciano Ga Work Phone: [facility] Work Phone: Start: 04-12-2022 End: 02-06-2023 Discharged Recurring DO Feliciano Ga Work Phone: [facility] [place] Work Phone: Start: 03-30-2022 End: 03-30-[address] TROY BRAMBILA . Facility: Start: 03-29-2022 Rx Renewal Feliciano Ga Work Phone: [facility] 250 DO Work Phone: Start: 03-19-2022 ambulatory Marv Urena Facility : Start: 03-15-2022 ambulatory Ms. Enedelia Gusmanshelia Gomez Facility: Start: 03-15-2022 Patient encounter procedure Felicianoamadou Ga Work Phone: [facility] 250 DO Work Phone: Start: 03-15-2022 Chart Update Feliciano Louis Harmeet Work Phone: [facility] 250 DO Work Phone: Start: 03-11-2022 Registered Recurring DO Feliciano Ga Work Phone: [facility] [place] Work Phone: Start: 03-11-2022 End: 03-11-2022 ambulatory DO Feliciano Ga Work Phone: [facility] Work Phone: Start: 03-11-2022 End: 03-11-2022 Patient encounter procedure DO Feliciano Ga Work Phone: [facility] [place] Work Phone: Start: 03-10-2022 FUV, Provider: Enedelia Mix, Status: Pen, Time: 2:30 PM Feliciano Ga Work Phone: [facility] 250 DO Work Phone: Start: 03-10-2022 Office outpatient vi sit 25 minutes Feliciano Ga Work Phone: [facility] 600 DO Work Phone: Start: 03-10-2022 Patient encounter procedure Felicianoamadou Ga Work Phone: [facility] 250 DO Work Phone: Start: 03-10-2022 ambulatory Ms. Enedelai Gomez Facility: Start: 03-09-2022 End: 03-09-2022 ambulatory Feliciano Ga Other [employer] Other Start: 03-09-2022 Office outpatient vi sit 15 minutes Feliciano Ga [facility] Start: 03-04-2022 End: 03-04-2022 ambulatory Feliciano Ga Other [employer] Other Start: 03-04-2022 Telephone encounter Feliciano Ga [facility] Start: 03-03-2022 Rx Renewal Feliciano Louis Harmeet Work Phone: [facility] 250 DO Work Phone: Start: 03-03-2022 End: 03-03-2022 ambulatory Feliciano Ga Other [employer] Other Start: 03-03-2022 Telephone encounter Feliciano Ga [facility] Start: 02-18-2022 End: 02-19-[address] TROY BRAMBILA . Facility: Start: 02-15-2022 Rx Renewal Feliciano P Clarecatie Work Phone: [facility] 250 DO Work Phone: Start: 02-09-2022 End: 02-09-2022 ambulatory Feliciano Ga Other [employer] Other Start: 02-09-2022 Office outpatient vi sit 25 minutes Feliciano Ga [facility] Start: 01-13-2022 End: 01-13-2022 ambulatory Feliciano Ga Other [employer] Other Start: 01-13-2022 Telephone encounter Feliciano Ga [facility] Start: 01-12-[address] Feliciano Ga Facility:[id number] Start: 01-11-2022 ambulatory Marv Urena Facility :[id number] Start: 01-10-[address] Feliciano Ga Facility:[id number] Start: 01-09-2022 End: 01-16-2022 Evaluation and management of inpatient DO Feliciano Ga Work Phone: [facility] [place] [facility] Start: 01-07-2022 End: 01-07-2022 ambulatory Feliciano Ga Other [employer] Other Start: 01-07-2022 Office outpatient vi sit 25 minutes Feliciano Ga [facility] Start: 12-25-2021 End: 12-25-2021 ambulatory Feliciano Ga Other [employer] Other Start: 12-25-2021 Telephone encounter Feliciano Ga [facility] Start: 12-17-2021 End: 12-18-[address] TROY BRAMBILA . Facility:[facility] Start: 12-17-2021 End: 12-17-2021 ambulatory DO Feliciano Ga Work Phone: [facility] Work Phone: Start: 12-17-2021 End: 12-17-2021 Patient encounter procedure DO Feliciano Ga Work Phone: [facility] [place] Start: 12-01-2021 End: 12-01-[address] TROY BRAMBILA . Facility:[facility] Start: 11-12-2021 End: 11-13-[address] NELSY GA Facility:[facility] Start: 10-12-2021 End: 10-12-2021 ambulatory Feliciano Ga Other [employer] Other Start: 10-12-2021 Office outpatient vi sit 15 minutes Feliciano Ga [facility] Start: 09-28-2021 End: 09-28-2021 ambulatory Feliciano Ga Other [employer] Other Start: 09-28-2021 Telephone encounter Feliciano Ga [facility] Start: 09-28-2021 End: 09-28-2021 Discharged Recurring DO Feliciano Ga Work Phone: [facility] [place] Start: 09-11-2021 End: 09-11-2021 ambulatory Feliciano Ga Other [employer] Other Start: 09-11-2021 Nursing evaluation o f patient and report Feliciano Ga [facility] Start: 09-10-2021 Telephone encounter Feliciano Ga [facility] Start: 09-10-2021 End: 09-11-[address] NELSY GA [employer] Other Start: 09-04-2021 End: 09-04-2021 ambulatory Feliciano Ga Other [employer] Other Start: 09-04-2021 Telephone encounter Feliciano Ga [facility] Start: 08-31-2021 End: 08-31-2021 ambulatory Feliciano Ga Other [employer] Other Start: 08-31-2021 Office outpatient vi sit 25 minutes Feliciano Ga [facility] Start: 08-17-2021 End: 08-18-[address] TROY BRAMBILA . Facility: Start: 08-13-2021 End: 08-14-[address] TROY BRAMBILA . Facility:[facility] Start: 08-04-2021 Office outpatient vi sit 15 minutes Feliciano Ga Work Phone: [facility] 250 DO Work Phone: Start: 08-04-[address] Feliciano Ga Facility: Start: 07-28-2021 End: 07-28-[address] TROY BRAMBILA . Facility:[facility] Start: 05-25-2021 End: 05-25-2021 ambulatory Feliciano Ga Other [employer] Other Start: 05-25-2021 Telephone encounter Feliciano Ga [facility] Start: 03-23-2021 Rx Renewal Feliciano Ga Work Phone: [facility] 250 DO Work Phone: Start: 03-11-2021 End: 03-11-2021 ambulatory Feliciano Ga Other [employer] Other Start: 03-11-2021 Telephone encounter Feliciano Ga [facility] Start: 03-05-2021 End: 03-05-2021 ambulatory Feliciano Ga Other [facility] Other Start: 03-05-2021 Telephone encounter [facility] Start: 02-17-2021 Rx Renewal Feliciano Ga Work Phone: [facility] 250 DO Work Phone: Start: 01-19-2021 End: 01-19-2021 ambulatory Feliciano Ga Other [employer] Other Start: 01-19-2021 Office outpatient vi sit 25 minutes Feliciano Ga [facility] [place] Start: 01-16-2021 Rx Renewal Feliciano Ga Work Phone: [facility] 250 DO Work Phone: Start: 01-13-2021 Rx Renewal Feliciano Ga Work Phone: -[facility] [facility] [place] Work Phone: Start: 01-05-2021 Office outpatient vi sit 15 minutes Feliciano Ga Work Phone: -[facility] 250 DO Work Phone: Start: 01-05-2021 Patient encounter procedure Feliciano Ga Work Phone: -[facility] 250 DO Work Phone: Start: 12-15-2016 End: 12-16-2016 Ambulatory Dontrell Bhupinder Florentino [place] [place] Date Procedure Procedure Detail Performing [...] Start: 01-12-2022 Plain chest X-ray DO Elizabeth jose Harmeet Work Phone: Start: 01-12-2022 MRI of lumbar spine with contrast DO Feliciano Ga Work Phone: Start: 01-10-2022 Doppler ultrasonogra phy of bilateral carotid arteries DO Feliciano Ga Work Phone: Start: 01-10-2022 Ultrasonography of b ilateral kidneys DO Feliciano Ga Work Phone: Start: 01-09-2022 SARS Antigen (LFIA) DO Fleiciano Ga Work Phone: Start: 01-09-2022 Plain chest [...] Feliciano Ga Work Phone: Comment on above: [facility]; Arthroplasty of knee Feliciano Ga Work Phone: Comment on above: 2016 and 2020; Arthroscopy of shoulder Daniella Ga Work Phone: Cardiac catheterization Daniella n Louis Ga Work Phone: Epidural steroid injection B molly Ga Work Phone: Procedure on back Feliciano P Neil ns Work Phone: Procedure on neck Feliciano P Neil ns Work Phone: Procedure on prostate Feliciano P Harmeet Work Phone: Prosthetic arthropla sty of the hip Feliciano Ga Work Phone: Total replacement of hip Edmond tobar P Harmeet Work Phone: Urine culture DO Feliciano Ga Work Phone: Plan of Treatment Date Care Activity Detail Author Start: 07-18-2024 End: 07-18-2024 Patient encounter procedure 07/18/2024 10:00 AM EDT Office Visit [facility] [address] [place] [id number] Irineo Mcintyre DO [address] [place] [address] [facility] Start: 07-13-2023 End: 07-12-2024 Alanine aminotransferase [Enzymatic activity/volume] in Serum or Plasma by With P-5'-P Alanine Aminotransferase Lab Routine Hyperlipidemia, unspecified hyperlipidemia type Expected: 07/13/2023 (Approximate), Expires: 07/12/2024 [facility] Work Phone: Comment on above: Expected: 07/13/2023 (Approximate), Expi res: 07/12/2024 Start: 07-13-2023 End: 07-12-2024 Aspartate aminotransferase [Enzymatic activity/volume] in Serum or Plasma by With P-5'-P Aspartate Aminotransferase Lab Routine Hyperlipidemia, unspecified hyperlipidemia type Expected: 07/13/2023 (Approximate), Expires: 07/12/2024 [facility] Work Phone: Comment on above: Expected: 07/13/2023 (Approximate), Expi res: 07/12/2024 Start: 07-13-2023 End: 07-12-2024 Basic metabolic 2000 panel - Serum or Plasma Basic Metabolic Panel Lab Routine Chronic atrial fibrillation (Multi) Essential hypertension, benign Heart failure, NYHA class 2 (Multi) Hyperlipidemia, unspecified hyperlipidemia type Expected: 07/13/2023 (Approximate), Expires: 07/12/2024 [facility] Service Area Work Phone: Comment on above: Expected: 07/13/2023 (Approximate), Expi res: 07/12/2024 Start: 07-13-2023 End: 07-12-2024 Lipid 1996 panel - Serum or Plasma Lipid Panel Lab Routine Hyperlipidemia, unspecified hyperlipidemia type Expected: 07/13/2023 (Approximate), Expires: 07/12/2024 [facility] Work Phone: Comment on above: Expected: 07/13/2023 (Approximate), Expi res: 07/12/2024 Start: 07-13-2023 End: 07-12-2024 Natriuretic peptide B [Mass/volume] in Blood B-Type Natriuretic Peptide Lab Routine Heart failure, NYHA class 2 (Multi) Expected: 07/13/2023 (Approximate), Expires: 07/12/2024 [facility] Work Phone: Comment on above: Expected: 07/13/2023 (Approximate), Expi res: 07/12/2024 Start: 07-13-2023 FUV, Provider: Irineo Mcintyre, Status: Pen, Time: 9:40 AM FUV, Provider: Irineo Mcintyre, Status: Pen, Time: 9:40 AM -[facility] 250 DO Work Phone: Start: 11-05-2022 COVID-19 Vaccine ( season) COVID-19 Vaccine ( season) [facility] Start: 07-07-2022 FUV, Provider: Irineo Mcintyre, Status: Pen, Time: 9:20 AM FUV, Provider: Irineo Mcintyre, Status: Pen, Time: 9:20 AM -[facility] 250 DO Work Phone: Start: 03-15-2022 HOLTER MON, Provider: LEVAR MARES MEDICAL ASSISTANT PER DIEM 1,[id number], Status: Pen, Time: 10:30 AM HOLTER MON, Provider: LEVAR MARES MEDICAL ASSISTANT PER DIEM 1,[id number], Status: Pen, Time: 10:30 AM -[facility] 250 DO Work Phone: Start: 03-10-2022 FUV, Provider: Enedelia Mix, Status: Pen, Time: 2:30 PM FUV, Provider: Enedelia Mix, Status: Pen, Time: 2:30 PM -[facility] 250 DO Work Phone: Start: 01-16-2022 [facility] Start: 01-12-2022 Referral to infectious diseases physician [facility] Start: 01-09-2022 Referral to neurologist [facility] Start: 01-09-2022 Referral to Retail Event Assistant [facility] Start: 01-09-2022 Hospital admission [facility] Start: 01-09-2022 [facility] Start: 07-08-2021 FUV, Provider: Irineo Mcintyre, Status: Pen, Time: 9:50 AM [facility] Work Phone: Start: 06-16-2021 FUV, Provider: Irineo Mcintyre, Status: Pen, Time: 9:30 AM FUV, Provider: Irineo Mcintyre, Status: Pen, Time: 9:30 AM [facility] Work Phone: Start: 06-02-2016 Pneumococcal Vaccine: 65+ Years (2 of 2 - PPSV23 or PCV20) Pneumococcal Vaccine: 65+ Years (2 of 2 - PPSV23 or PCV20) [facility] Start: 2001 RSV patients and/or patients aged 60+ years (1 - 1-dose 60+ series) RSV patients and/or patients aged 60+ years (1 - 1-dose 60+ series) [facility] Start: 07-16-1991 Zoster Vaccines (1 of 2) Zoster Vaccines (1 of 2) [facility] Start: 07-16-1963 DTaP/Tdap/Td Vaccines (1 - Tdap) DTaP/Tdap/Td Vaccines (1 - Tdap) [facility] Start: 07-16-1959 Diabetes mellitus screening Diabetes Screening [facility] Start: 1941 Lipid panel Lipid Panel [facility] Start: 1941 Medicare Annual Wellness Visit Medicare Annual Wellness Visit (AWV) [facility] Start: 1941 Thyroid stimulating hormone measurement TSH Level [facility] Anion gap measurement [facility] Work Phone: Bacteria identified in Urine by Culture Urine Culture [facility] Work Phone: Basophil percent differential count [facility] Work Phone: Blood culture for bacteria, including anaerobic screen Blood Culture [facility] Calcium [Mass/volume ] in Serum or Plasma [facility] Work Phone: Carbon dioxide, tota l [Moles/volume] in Serum or Plasma [facility] Work Phone: Chloride [Moles/volu me] in Serum or Plasma [facility] Work Phone: Creatinine and Glome rular filtration rate.predicted panel - Serum, Plasma or Blood [facility] Work Phone: Eosinophil percent differential count [facility] Work Phone: Eosinophils [#/volum e] in Blood [facility] Work Phone: Erythrocyte mean corpuscular volume determination [facility] Work Phone: Erythrocytes [#/volu me] in Blood [facility] Work Phone: Glucose [Mass/volume ] in Serum or Plasma [facility] Work Phone: Hematocrit [Volume Fraction] of Blood [facility] Work Phone: Hemoglobin [Mass/vol ume] in Blood [facility] Work Phone: Hemoglobin distribut ion, width determination [facility] Work Phone: Leukocytes [#/volume ] in Blood [facility] Work Phone: Lymphocyte count [facility] Work Phone: Lymphocyte percent differential count [facility] Work Phone: Mean corpuscular hemoglobin concentration determination [facility] Work Phone: Mean corpuscular hemoglobin determination [facility] Work Phone: Measurement of renal function [facility] Work Phone: Monocyte count [facility] Work Phone: Monocyte percent differential count [facility] Work Phone: Neutrophil count [facility] Work Phone: Neutrophil percent differential count [facility] Work Phone: Patient referral [facility] Work Phone: Platelet mean volume determination [facility] Work Phone: Platelets [#/volume] in Blood [facility] Work Phone: Potassium [Moles/vol ume] in Serum or Plasma [facility] Work Phone: Sodium [Moles/volume ] in Serum or Plasma [facility] Work Phone: Urea nitrogen [Mass/volume] in Serum or Plasma [facility] Work Phone: Immunizations Immunization Date Immunization Notes Care Provider [facility] 12-17-2022 influenza virus vaccine, unspecified formulation DO Feliciano Ga Work Phone: [facility] 12-17-2022 influenza, high dose seasonal, preservative-free Feliciano Ga Other [facility] 12-24-2021 influenza, seasonal, injectable Feliciano Ga Other [facility] 12-24-2021 COVID-19 Moderna (BIvalent) Feliciano Ga Other [facility] 12-24-2021 Fluzone High-Dose Quadrivalent 0.7 ML Intramuscular Suspension Prefilled Syringe Feliciano Ga Work Phone: [facility] 02-18-2021 Moderna COVID-19 Vaccine 100 MCG/0.5ML Intramuscular Suspension Feliciano aG Work Phone: [facility] 05-28-2020 Moderna COVID-19 Vaccine 100 MCG/0.5ML Intramuscular Suspension Feliciano Ga Work Phone: [facility] 05-05-2020 COVID-19 Vaccine Moderna - Documentation Purposes Only Feliciano Ga Other [facility] 04-30-2020 Moderna COVID-19 Vaccine 100 MCG/0.5ML Intramuscular Suspension Feliciano Spencers Work Phone: [facility] 04-14-2020 Moderna COVID-19 Vaccine 100 MCG/0.5ML Intramuscular Suspension Feliciano Ga Work Phone: [facility] 12-22-2019 Fluzone High-Dose Quadrivalent 0.7 ML Intramuscular Suspension Prefilled Syringe Feliciano Ga Work Phone: [facility] 12-06-2019 influenza, seasonal, injectable Feliciano Ga Work Phone: [facility] 11-22-2018 influenza, seasonal, injectable Feliciano Ga Other [facility] 11-20-2018 Seasonal trivalent influenza vaccine, adjuvanted, preservative free Feliciano Ga Work Phone: [facility] 11-05-2018 influenza virus vaccine, unspecified formulation Feliciano Spencers Work Phone: [facility] 250 DO Work Phone: 12-06-2017 influenza, high dose seasonal, preservative-free Feliciano P Kuns Work Phone: [facility] 12-05-2017 influenza, seasonal, injectable Feliciano Ga Other [facility] 11-05-2017 influenza virus vaccine, unspecified formulation Feliciano P Clares Work Phone: [facility] 250 DO Work Phone: 04-07-2016 influenza virus vaccine, unspecified formulation Feliciano P Clares Work Phone: [facility] [facility] DO Work Phone: 04-07-2016 pneumococcal conjuga te vaccine, 13 valent Feliciano Ga Work Phone: -[facility] 250 DO Work Phone: 01-24-2012 Kenalog 40/Xylocaine Feliciano glaser Other [facility] Other Payers Date Payer Category Payer Medicare [id number] 2011 Unknown 2006 Medicare [id number] 1959 [employer] [id number] 1959 Medicare [id number] 2.1 [id number] 1941 Unknown [id number] 1941 Unknown [id number] [id number]. [id number] 1941 Unknown [id number] [id number]. [id number] 1941 Unknown [id number] [id number]. [id number] 1941 Unknown [id number] 2.16. 840.1.027818.3.579.2.356 1940 Unknown [id number] 2.16. 840.1.904565.3.579.2.356 1940 Unknown [id number] 2.16. 840.1.730159.3.579.2.356 1940 Unknown [id number] 2.16. 840.1.467739.3.579.2. 1940 Unknown [id number] 2.16. 840.1.075566.3.579.2.356 1940 Unknown [id number] 2.16.84 0.1.934305.3.579.2.593 1940 Unknown [id number] 2.16.84 0.1.075941.3.579.2.593 1940 Unknown [id number] 2.16.84 0.1.444630.3.579.2.593 1940 Unknown [id number] 2.16.84 0.1.494017.3.579.2.593 1940 Unknown [id number] 2.16.84 0.1.708023.3.579.2.593 1941 Unknown [id number] 2.16.84 0.1.843853.3.579.2.593 1940 Unknown [id number] 2.16.84 0.1.833423.3.579.2.593 1940 Unknown [id number] 2.16.84 0.1.049131.3.579.2.593 1940 Unknown [id number] 2.16.84 0.1.509741.3.579.2.593 1941 Unknown [id number] 2.16.84 0.1.005775.3.579.2.593 1940 Unknown [id number] 2.16.84 0.1.337447.3.579.2.593 1940 Unknown [id number] 2.16.84 0.1.487564.3.579.2.593 1941 Unknown [id number] 2.16.84 0.1.280480.3.579.2.593 1941 Unknown [id number] 2.16.8 40.1.501921.3.579.2.1244 1941 Unknown [id number] 2.16. 840.1.497995.3.579.2.196 1940 Unknown [id number] 2.16. 840.1.195272.3.579.2.196 1940 Unknown [id number] 2.16. 840.1.302164.3.579.2.196 1940 Unknown [id number] 2.16. 840.1.618808.3.579.2.196 1940 Unknown [id number] 2.16. 840.1.647968.3.579.2.196 Self-pay Self Pay [id number] Social History Date Type Detail Facility Start: 07-13-2023 Daily alcohol use Daily alcohol use -[facility] DO Work Phone: Comment on above: 1-2 beers; Coffee 2 cups daily; Quit smoking in 1979 ; Start: 07-13-2023 End: 03-07-1989 Sex Assigned At [facility] Other Start: 12-26-2019 End: 09-21-2023 Tobacco smoking status MOIS Ex-smoker (finding) [facility] Start: 1940 Sex Assigned At Male F [facility] End: 03-07-1979 History of tobacco use Current smoker [facility] Work Phone: End: 03-07-1979 History of tobacco use Cigarette Smoker [facility] Work Phone: Start: 07-13-2023 Tobacco use and exposure Smokeless tobacco non-user [facility] Work Phone: Start: 07-13-2023 Alcoholic beverage intake Current drinker of alcohol (finding) [facility] Work Phone: Start: 1940 Sex assigned at Not on file [facility] Work Phone: Start: 07-03-2023 End: 07-13-2023 Exposure to SARS-CoV-2 (event) Not sure [facility] Medical Equipment Procedure Code Equipment Code Equipment Origin al Text Equipment Identifier Dates Arthroplasty, knee, total, minimally invasive ART SURF LEFT 11MM [id number] FDA Start: 11-05-2019 Arthroplasty, knee, total, minimally invasive Orthopaedic cement, non-medicated [id number] FDA Start: 11-05-2019 Arthroplasty, knee, total, minimally invasive Uncoated knee femur prosthesis ()[id number] FDA Start: 11-05-2019 Arthroplasty, knee, total, minimally invasive Uncoated knee tibia prosthesis, metallic ()[id number] FDA Start: 11-05-2019 Arthroplasty, knee, total, minimally invasive Polyethylene patella prosthesis ()[id number] FDA Start: 11-05-2019 Arthroplasty, knee, total, minimally [...] status Patient is Pro gressing Toward Baseline [facility] Work Phone: Mental Status Date Assessment Result Facility 01-16-2022 Cognitive function Cognitive Sta tus Patient at Baseline [facility] Work Phone: Clinical Notes 05-23-2006 to 07-13-2023 Irineo Mcintyre, DO - 07/13/2023 9:40 AM EDTPatient Instructions Note Date & Type Note Facility 07-13-2023 History of Present illness Narrative Subjective Irineo Wallis is a 82 y.o. male Chief Complaint Annual Exam 82-year-old gentleman returns for follow-up. He is doing well from a cardiovascular standpoint he is debilitated by his significant osteoarthritis, recent peripheral nerve/ablations performed at [facility] this past year. He has persistent edema [...] discussion and plan. documented in this encounter [facility] Work Phone: 07-13-2023 Instructions Hermilo Bell [...] Prevention Education Given documented in this encounter [facility] Work Phone: 03-18-2023 Evaluation note Encounter Date Diagnosis Assessment Notes Mar, Lumbar degenerative disc disease (ICD-10 - M51.36) Patient is following with pain management at [facility], had a recent branch block. He is [...] above medication. We will continue to monitor. [employer] Other 10-02-2023 Evaluation note* Encounter Date Diagnosis Assessment Notes Treatment Notes Treatment Clinical Notes Dec, Insomnia (ICD-10 - G47.00) [employer] Other 09-26-2023 Evaluation note* Encounter Date Diagnosis Assessment Notes Treatment Notes Treatment Clinical Notes Nov, Gout (ICD-10 - M10.9) [employer] Other 07-12-2023 Evaluation note* Encounter Date Diagnosis [...] the care of pain management out of [place]. States the pain is slightly improved and [...] to thin out the secretions. Rx sent [employer] Other 07-05-2023 Evaluation note* Encounter Date Diagnosis Assessment Notes Treatment Notes Treatment Clinical Notes Sep, Hyperlipidemia (ICD-10 - E78.5) Sep, Insomnia (ICD-10 - G47.00) Sep, Hypothyroidism, unspecified (ICD-10 - E03.9) [employer] Other 04-03-2023 Evaluation note* Encounter Date Diagnosis Assessment Notes Treatment Notes Treatment Clinical Notes Jun, Lumbar degenerative disc disease (ICD-10 - M51.36) I am in agreement the patient keep the above medication on hand to use sparingly for back pain and to continue following with Pain Management. The patient states he does still go to the [facility] for hunting trips with a group but [...] Screening for prostate cancer (ICD-10 - Z12.5) [employer] Other 03-28-2023 Evaluation note* Encounter Date Diagnosis Assessment Notes Treatment Notes Treatment Clinical Notes May, Insomnia (ICD-10 - G47.00) [employer] Other 03-07-2023 Evaluation note* Encounter Date Diagnosis Assessment Notes Treatment Notes Treatment Clinical Notes May, Atrial fibrillation (ICD-10 - I48.91) [employer] Other 02-09-2023 NoteCONSULTATION CONSULTATION DATE: 04/15/2022 HISTORY [...] in the clinic in three months' time.[id number] Encounter Date Diagnosis Assessment Notes [...] wear a hat out in the sun. [employer] Other 12-29-2022 Evaluation note* Encounter Date Diagnosis Assessment Notes Treatment Notes Treatment Clinical Notes Feb, Insomnia (ICD-10 - G47.00) Feb, Hypothyroidism, unspecified (ICD-10 - E03.9) [employer] Other 12-28-2022 Evaluation note* Encounter Date Diagnosis Assessment Notes Treatment Notes Treatment Clinical Notes Feb, Insomnia (ICD-10 - G47.00) Feb, Hypothyroidism, unspecified (ICD-10 - E03.9) [employer] Other 12-15-2022 NoteCONSULTATION CONSULTATION DATE: 02/18/2022 HISTORY [...] move forward with the plan of care.[id number]* Encounter Date Diagnosis Assessment Notes Treatment Notes Treatment Clinical Notes Feb, Lumbar degenerative disc disease (ICD-10 - M51.36) Daughter feels that patient was doing quite well while he was getting daily PT at [facility], however now that he has [...] upon examination, continue using the above powder. [employer] Other 11-11-2022 Progress note Author Raji Ennis [facility] January 15, 2022 4:51pm Note Date/Time January 15, 2022 4:51pm [facility] [address] [place] [address] Hospitalist Progress Note Signed Patient: Irineo Wallis Jr MR# : [id number] : 1940 Acct:[id number] Age/Sex: 81 / M Adm Date: 2 Loc: Room: [address] [place] [address] Type: ADM IN Attending Dr: Raji En[facility] [...] mg 01/09/22 14:41 Bisacodyl 10 Mg Supp.Rect TN 01/09/23 14:40 DAILY PRN Constipation Bisacodyl 10 [...] Propionate 1 spray 01/09/22 15:17 Fluticasone Propionate [place] 120 [place]/16 Gm Bottle NARES-BOTH 01/09/23 15:16 QHS PRN [...] tomorrow. Documented By: Raji Ennis MD 01/15/22 1097 Signed By: <Electronically signed by Raji Ennis MD> 01/15/22 2689 [facility] Work Phone: 1(885) 651-106011-11-2022 Progress note Author Frankie Reynolds [facility] January 15, 2022 12:21pm Note Date/Time January 15, 2022 12:21pm [facility] [address] [place] [address] Infect. Disease Progress Note Signed Patient: Irineo Wallis Jr MR# : [id number] : 1940 Acct:[id number] Age/Sex: 81 / M Adm Date: 2 Loc: Room: [address] [place] [address] Type: ADM IN Attending Dr: Raji Ennsi [...] Bisacodyl (Bisacodyl 10 Mg Supp.Rect) 10 mg TN DAILY PRN PRN Reason: Constipation Stop: 01/09/23 14:40 Bisacodyl (Bisacodyl 5 Mg Tablet.Dr) 10 mg PO DAILY PRN PRN Reason: Constipation Stop: 01/09/23 14:40 Last Admin: 01/14/22 19:57 Dose: 10 mg Bumetanide (Bumetanide 1 Mg Tablet) 1 mg PO DAILY@0800 AN[facility] Stop: 01/14/23 15:59 Last Admin: 01/15/22 08:46 Dose: 1 mg Docusate Sodium (Docusate 100 Mg Capsule) 100 mg PO BID [facility] Stop: 01/09/23 20:59 Last Admin: 01/15/22 08:46 Dose: 100 mg Fluticasone Propionate (Fluticasone Propionate [place] 120 [place]/16 Gm Bottle) 1 spray NARES-BOTH QHS PRN PRN Reason: Nasal Congestion Stop: 01/09/23 15:16 Magnesium Sulfate (Magnesium Sulf 2gm-*Swfi*) 2 gm in 50 mls @ 25 mls/hr IV DAILY PRN PRN Reason: Magnesium Level < 1.5 Stop: 01/09/23 14:40 Levothyroxine Sodium (Levothyroxine 150 Mcg Tablet) 150 mcg PO DAILY@0630 [facility] Stop: 01/10/23 06:29 Last Admin: 01/15/22 06:38 Dose: Not Given Magnesium Hydroxide (Magnesium Hydroxide Susp 30 Ml Udc) 30 ml PO BID PRN PRN Reason: Constipation Stop: 01/09/23 14:40 Magnesium Oxide (Magnesium Oxide 400 Mg Tablet) 400 mg PO DAILY [facility] Stop: 01/10/23 08:59 Last Admin: 01/15/22 08:46 Dose: 400 mg Nitroglycerin (Nitroglycerin 0.4 Mg Tab.Subl) 0.4 mg SUBLINGUAL Q5MIN.X3 PRN PRN Reason: Chest Pain Stop: 01/09/23 14:40 Pom Eszopiclone 3 Mg (Tablet) 3 mg PO HS [facility] Stop: 01/11/23 21:59 Last Admin: 01/14/22 21:32 Dose: 3 mg Nystatin (Nystatin 100,000 Unit/Gram Powder 15 Gm Bottle) 1 applic TOPICAL TID [facility] Stop: 01/09/23 21:59 Last Admin: 01/15/22 08:46 [...] By: <Electronically signed by MD Frankie Reynolds> 01/15/221 [facility] Work Phone: 1(572) 807-928411-10-2022 Progress note Author Raji Ennis [facility] January 14, 2022 5:43pm Note Date/Time January 14, 2022 5:43pm [facility] [address] [place] [address] Hospitalist Progress Note Signed Patient: Irineo Wallis Jr MR# : [id number] : 1940 Acct:[id number] Age/Sex: 81 / M Adm Date: 2 Loc: Room: [address] [place] [address] Type: ADM IN Attending Dr: Raji Ennis [...] mg 01/09/22 14:41 Bisacodyl 10 Mg Supp.Rect TN 01/09/23 14:40 DAILY PRN Constipation Bisacodyl 10 [...] Propionate 1 spray 01/09/22 15:17 Fluticasone Propionate [place] 120 [place]/16 Gm Bottle NARES-BOTH 01/09/23 15:16 QHS PRN [...] <Electronically signed by Raji Ennis MD> 01/14/221742 [facility] Work Phone: 1(711) 592-643511-10-2022 Progress note Author Frankie Reynolds [facility] January 14, 2022 9:39am Note Date/Time January 14, 2022 9:39am [facility] [address] [place] [address] Infect. Disease Progress Note Signed Patient: Irineo Wallis Jr MR# : [id number] : 1940 Acct:[id number] Age/Sex: 81 / M Adm Date: 2 Loc: Room: [address] [place] [address] Type: ADM IN Attending Dr: Raji Ennis [...] Appearance Clear Urine pH 5.5 Ur Specific [place] 1.012 Urine Protein 30 H Urine Glucose [...] Bisacodyl (Bisacodyl 10 Mg Supp.Rect) 10 mg TN DAILY PRN PRN Reason: Constipation Stop: 01/09/23 14:40 Bisacodyl (Bisacodyl 5 Mg Tablet.Dr) 10 mg PO DAILY PRN PRN Reason: Constipation Stop: 01/09/23 14:40 Last Admin: 01/13/22 21:26 Dose: 10 mg Bumetanide (Bumetanide 1 Mg Tablet) 1 mg PO BID@0800,1600 [facility] Stop: 01/13/23 15:59 Docusate Sodium (Docusate 100 Mg Capsule) 100 mg PO BID [facility] Stop: 01/09/23 20:59 Last Admin: 01/14/22 08:03 Dose: 100 mg Fluticasone Propionate (Fluticasone Propionate [place] 120 [place]/16 Gm Bottle) 1 spray NARES-BOTH QHS PRN PRN Reason: Nasal Congestion Stop: 01/09/23 15:16 Magnesium Sulfate (Magnesium Sulf 2gm-*Swfi*) 2 gm in 50 mls @ 25 mls/hr IV DAILY PRN PRN Reason: Magnesium Level < 1.5 Stop: 01/09/23 14:40 Cefepime HCl (Maxipime) 2 gm in 50 mls @ 100 mls/hr IV Q12H [facility] Last Admin: 01/14/22 03:05 Dose: 100 mls/hr Vancomycin HCl 1.25 gm/ (Dextrose) 275 mls @ 183.333 mls/hr IV Q24H [facility] Stop: 01/13/23 18:59 Last Infusion: 01/13/22 21:17 Dose: Infused Levothyroxine Sodium (Levothyroxine 150 Mcg Tablet) 150 mcg PO DAILY@0630 [facility] Stop: 01/10/23 06:29 Last Admin: 01/14/22 05:54 Dose: 150 mcg Magnesium Hydroxide (Magnesium Hydroxide Susp 30 Ml Udc) 30 ml PO BID PRN PRN Reason: Constipation Stop: 01/09/23 14:40 Magnesium Oxide (Magnesium Oxide 400 Mg Tablet) 400 mg PO DAILY [facility] Stop: 01/10/23 08:59 Last Admin: 01/14/22 08:04 Dose: 400 mg Nitroglycerin (Nitroglycerin 0.4 Mg Tab.Subl) 0.4 mg SUBLINGUAL Q5MIN.X3 PRN PRN Reason: Chest Pain Stop: 01/09/23 14:40 Pom Eszopiclone 3 Mg (Tablet) 3 mg PO HS [facility] Stop: 01/11/23 21:59 Last Admin: 01/13/22 21:27 Dose: 3 mg Nystatin (Nystatin 100,000 Unit/Gram Powder 15 Gm Bottle) 1 applic TOPICAL TID [facility] Stop: 01/09/23 21:59 Last Admin: 01/14/22 08:04 [...] 20 Meq Tab.Er.Prt) 20 meq PO QPM [facility] Stop: 01/09/23 20:59 Last Admin: 01/13/22 21:26 Dose: 20 meq Sodium Chloride (Sodium Chloride 0.9 % 10 Ml Syringe) 0 ml IV-PUSH PRN PRN PRN Reason: Flush Stop: 01/09/23 09:37 Last Admin: 01/10/22 23:31 Dose: 10 ml Sodium Chloride (Sodium Chloride 0.9 % 10 Ml Syringe) 0 ml IV-PUSH QSHIFT [facility] Stop: 01/09/23 21:59 Last Admin: 01/14/22 05:54 [...] By: <Electronically signed by MD Frankie Reynolds> 01/14/2204 [facility] Work Phone: 1([phone]) 363-883011-09-2022 Progress note Author Mani Dickens [facility] January 13, 2022 6:10pm Note Date/Time January 13, 2022 8 :13am [facility] [address] [place] [address] Neurology Progress Note Signed with Addenda Patient: Irineo Wallis Jr MR# : [id number] : 1940 Acct:[id number] Age/Sex: 81 / M Adm Date: 2 Loc: Room: [address] [place] [address] Type: ADM IN Attending Dr: Raji Ennis [...] evaluation, treatment options. Addendum Documented By: MD Main Dickens 01/13/221809 Addendum Signed By: <Electronically signed [...] extremities * Unable to test finger-nose or mdou-jn-djxr due to drowsiness REFLEX EXAM: * 1/4 [...] Therapy Recommendations: OT Recommendations OT Recommended Discharge [facility] Facility Location OT Recommended Services at Physical Therapy,Occupational Therapy Discharge PT Recommendations PT Recommended Discharge Penitentiary Facility Location PT Recommended Services at Physical [...] <Electronically signed by MEI Knight> 01/13/22 1520 [facility] Work Phone: 1([phone]) 448-107111-09-2022 Progress note Author Raji Ennis [facility] January 13, 2022 3:44pm Note Date/Time January 13, 2022 3 :27pm [facility] [address] [place], [place] [id number] Hospitalist Progress Note Signed Patient: Irineo Wallis Jr MR# : [id number] : 1940 Acct:[id number] Age/Sex: 81 / M Adm Date: 2 Loc: 3T Room: [address] [place] [address] Type: ADM IN Attending Dr: Raji Ennis [...] mg 01/09/22 14:41 Bisacodyl 10 Mg Supp.Rect TN 01/09/23 14:40 DAILY PRN Constipation Bisacodyl 10 [...] Propionate 1 spray 01/09/22 15:17 Fluticasone Propionate [place] 120 [place]/16 Gm Bottle NARES-BOTH 01/09/23 15:16 QHS PRN [...] prophylaxis Documented By: Raji Ennis MD 01/13/22 1520 Signed By: <Electronically signed by Raji Ennis MD> 01/13/22 1681 [facility] Work Phone: 1([phone]) 492-758811-09-2022 Consult note Author Frankie Reynolds [facility] January 13, 2022 10:45am Note Date/Time January 13, 2022 1 0:45am [facility] [address] [place] [address] Infect. Disease Consult Note Signed Patient: Irineo Wallis Jr MR# : [id number] : 1940 Acct:[id number] Age/Sex: 81 / M Adm Date: 2 Loc: Room: [address] [place] [address] Type: ADM IN Attending Dr: Raji Ennis [...] Bisacodyl (Bisacodyl 10 Mg Supp.Rect) 10 mg TN DAILY PRN PRN Reason: Constipation Stop: 01/09/23 14:40 Bisacodyl (Bisacodyl 5 Mg Tablet.Dr) 10 mg PO DAILY PRN PRN Reason: Constipation Stop: 01/09/23 14:40 Last Admin: 01/12/22 08:22 Dose: 10 mg Bumetanide (Bumetanide 1 Mg/4 Ml Vial) 1 mg IV-PUSH BID@0800,1600 [facility] Stop: 01/13/23 07:59 Last Admin: 01/13/22 09:43 Dose: 1 mg Docusate Sodium (Docusate 100 Mg Capsule) 100 mg PO BID [facility] Stop: 01/09/23 20:59 Last Admin: 01/13/22 09:43 Dose: 100 mg Fluticasone Propionate (Fluticasone Propionate [place] 120 [place]/16 Gm Bottle) 1 spray NARES-BOTH QHS PRN PRN Reason: Nasal Congestion Stop: 01/09/23 15:16 Magnesium Sulfate (Magnesium Sulf 2gm-*Swfi*) 2 gm in 50 mls @ 25 mls/hr IV DAILY PRN PRN Reason: Magnesium Level < 1.5 Stop: 01/09/23 14:40 Cefepime HCl (Maxipime) 2 gm in 50 mls @ 100 mls/hr IV Q12H [facility] Last Admin: 01/13/22 03:07 Dose: 100 mls/hr Levothyroxine Sodium (Levothyroxine 150 Mcg Tablet) 150 mcg PO DAILY@0630 [facility] Stop: 01/10/23 06:29 Last Admin: 01/13/22 06:26 Dose: 150 mcg Magnesium Hydroxide (Magnesium Hydroxide Susp 30 Ml Udc) 30 ml PO BID PRN PRN Reason: Constipation Stop: 01/09/23 14:40 Magnesium Oxide (Magnesium Oxide 400 Mg Tablet) 400 mg PO DAILY [facility] Stop: 01/10/23 08:59 Last Admin: 01/13/22 09:43 Dose: 400 mg Nitroglycerin (Nitroglycerin 0.4 Mg Tab.Subl) 0.4 mg SUBLINGUAL Q5MIN.X3 PRN PRN Reason: Chest Pain Stop: 01/09/23 14:40 Pom Eszopiclone 3 Mg (Tablet) 3 mg PO HS [facility] Stop: 01/11/23 21:59 Last Admin: 01/12/22 22:51 Dose: 3 mg Nystatin (Nystatin 100,000 Unit/Gram Powder 15 Gm Bottle) 1 applic TOPICAL TID [facility] Stop: 01/09/23 21:59 Last Admin: 01/13/22 09:43 [...] 20 Meq Tab.Er.Prt) 20 meq PO QPM [facility] Stop: 01/09/23 20:59 Last Admin: 01/12/22 22:51 Dose: 20 meq Sodium Chloride (Sodium Chloride 0.9 % 10 Ml Syringe) 0 ml IV-PUSH PRN PRN PRN Reason: Flush Stop: 01/09/23 09:37 Last Admin: 01/10/22 23:31 Dose: 10 ml Sodium Chloride (Sodium Chloride 0.9 % 10 Ml Syringe) 0 ml IV-PUSH QSHIFT [facility] Stop: 01/09/23 21:59 Last Admin: 01/13/22 06:26 [...] signed by MD Frankie Reynolds> 01/13/22 1045 [facility] Work Phone: [phone] 280-336411-08-2022 Progress note Author W Be Mcintyre [facility] January 12, 2022 6:11pm Note Date/Time January 12, 2022 6 :11pm [facility] [address] [place] [address] Cardiology Progress Note Signed Patient: Irineo Wallis Jr MR# : [id number] : 1940 Acct:[id number] Age/Sex: 81 / M Adm Date: 2 Loc: Room: [address] [place] [address] Type: ADM IN Attending Dr: Raji Ennis [...] % (Auto) 76.3 Lymph % (Auto) 12.2 [place] % (Auto) 9.1 Eos % (Auto) 1.9 Baso % (Auto) 0.5 Neut # (Auto) 7.7 Lymph # (Auto) 1.2 [place] # (Auto) 0.9 H Eos # (Auto) [...] 2.9 Globulin (PEP) 2.4 Albumin/Globulin (PEP) 1.2 Lncrl-0-Tizaxilwa 0.4 Odnrq-9-Vcpgfqxro 0.7 Beta Globulins 0.6 L Gamma Globulins 0.8 M-Franky Not observed PEP Note IgG 816 IgA 171 IgM 105 Serum Immunofixation 01/12/22 06:42 Corrected WBC Uncorrected WBC Count RBC Hgb Hct MCV MCH MCHC RDW Plt Count MPV Neut % (Auto) Lymph % (Auto) [place] % (Auto) Eos % (Auto) Baso % (Auto) Neut # (Auto) Lymph # (Auto) [place] # (Auto) Eos # (Auto) Baso # (Auto) Nucleated RBC % (auto) PHA Creatinine Clear Sodium Potassium Chloride Carbon Dioxide Anion Gap BUN Creatinine Est GFR ( Amer) Est GFR (Non-Af Amer) Glucose Calcium C-Reactive Prot, Quant 8.4 H Serum Total Protein Albumin (Send Out) Globulin (PEP) Albumin/Globulin (PEP) Xrqbp-3-Bmftieglw Ydeox-8-Hfaknazkp Beta Globulins Gamma Globulins M-Franky PEP Note [...] <Electronically signed by Bhupinder Mcintyre DO> 01/12/22 8113 [facility] Work Phone: [phone]) 412-354911-08-2022 Progress note Author Raji Ennis [facility] January 12, 2022 4:38pm Note Date/Time January 12, 2022 4 :38pm [facility] [address] [place] [address] Hospitalist Progress Note Signed Patient: Irineo Wallis Jr MR# : [id number] : 1940 Acct:[id number] Age/Sex: 81 / M Adm Date: 2 Loc: Room: [address] [place] [address] Type: ADM IN Attending Dr: Raji Ennis [...] mg 01/09/22 14:41 Bisacodyl 10 Mg Supp.Rect TN 01/09/23 14:40 DAILY PRN Constipation Bisacodyl 10 [...] Propionate 1 spray 01/09/22 15:17 Fluticasone Propionate [place] 120 [place]/16 Gm Bottle NARES-BOTH 01/09/23 15:16 QHS PRN [...] signed by Raji Ennis MD> 01/12/22 1638 [facility] Work Phone: [phone] Progress note Author Mani Dickens [facility] January 12, 2022 4:10pm Note Date/Time January 12, 2022 8 :19am [facility] [address] [place] [address] Neurology Progress Note Signed Patient: Irineo Wallis Jr MR# : [id number] : 1940 Acct:[id number] Age/Sex: 81 / M Adm Date: 2 Loc: Room: [address] [place] [address] Type: ADM IN Attending Dr: Raji Ennis [...] extremities * Unable to test finger-nose or mnak-pe-qkyl due to drowsiness REFLEX EXAM: * 1/4 [...] Therapy Recommendations: OT Recommendations OT Recommended Discharge [facility]itentiary Facility Location OT Recommended Services at Physical Therapy,Occupational Therapy Discharge PT Recommendations PT Recommended Discharge Penitentiary Facility Location PT Recommended Services at Physical [...] the plan of care and confirmed the CATERING ADMINISTRATIVE ASSISTANT note The patient is an 81-year-old man [...] signed by MD Mani Dickens> 01/12/22 1610 [facility] Work Phone: 1([phone]) 101-481311-07-2022 Progress note Author Raji Ennis [facility] January 11, 2022 5:04pm Note Date/Time January 11, 2022 5 :04pm [facility] [address] [place] [address] Hospitalist Progress Note Signed Patient: Irineo Wallis Jr MR# : [id number] : 1940 Acct:[id number] Age/Sex: 81 / M Adm Date: 2 Loc: Room: [address] [place] [address] Type: ADM IN Attending Dr: Raji Ennis [...] mg 01/09/22 14:41 Bisacodyl 10 Mg Supp.Rect TN 01/09/23 14:40 DAILY PRN Constipation Bisacodyl 10 [...] Propionate 1 spray 01/09/22 15:17 Fluticasone Propionate [place] 120 [place]/16 Gm Bottle NARES-BOTH 01/09/23 15:16 QHS PRN [...] 01/11/22 22:00 Tablet PO 01/11/23 21:59 HS [facility] Nystatin 1 applic 01/09/22 22:00 01/11/22 15:24 [...] prophylaxis Documented By: Raji Ennis MD 01/11/22 8255 Signed By: <Electronically signed by Raji Ennis MD> 01/11/22 1583 [facility] Work Phone: 1([phone]) 556-936511-07-2022 Progress note Author Mani Dickens [facility] January 11, 2022 5:02pm Note Date/Time January 11, 2022 8 :55am [facility] [address] [place] [address] Neurology Progress Note Signed Patient: Irineo Wallis Jr MR# : [id number] : 1940 Acct:[id number] Age/Sex: 81 / M Adm Date: 2 Loc: 3T Room: [address] [place] [address] Type: ADM IN Attending Dr: Raji Ennis [...] knee to all modalities. CEREBELLAR EXAM: * Byncpm-rf-ihou and alternating movements are intact and normal in bilateral upper extremities * Ijuw-rn-eblq and alternating movements are intact and normal [...] Therapy Recommendations: OT Recommendations OT Recommended Discharge Penitentiary Facility Location OT Recommended Services at Physical Therapy,Occupational Therapy Discharge PT Recommendations PT Recommended Discharge Penitentiary Facility Location PT Recommended Services at Physical [...] the plan of care and confirmed the CATERING ADMINISTRATIVE ASSISTANT note The patient is an 81-year-old man [...] <Electronically signed by MD Mani Dickens> 01/11/22 1705 [facility] Work Phone: 1(468) 719-723811-07-2022 Progress note Author W Be Mcintyre [facility] January 11, 2022 2:09pm Note Date/Time January 11, 2022 2 :09pm [facility] [address] [place] [address] Cardiology Progress Note Signed Patient: Irineo Wallis Jr MR# : [id number] : 1940 Acct:[id number] Age/Sex: 81 / M Adm Date: 2 Loc: Room: [address] [place] [address] Type: ADM IN Attending Dr: Raji Ennis [...] % (Auto) 73.8 Lymph % (Auto) 13.7 [place] % (Auto) 9.6 Eos % (Auto) 2.2 Baso % (Auto) 0.7 Neut # (Auto) 6.3 Lymph # (Auto) 1.2 [place] # (Auto) 0.8 Eos # (Auto) 0.2 [...] signed by Bhupinder Mcintyre DO> 01/11/22 1409 [facility] Work Phone: 1(657) 229-708411-06-2022 Progress note Author Dharmesh Zavala [facility] January 10, 2022 8:54pm Note Date/Time January 10, 2022 8 :54pm [facility] [address] [place] [address] Hospitalist Progress Note Signed Patient: Irineo Wallis Jr MR# : [id number] : 1940 Acct:[id number] Age/Sex: 81 / M Adm Date: 2 Loc: Room: 8S9639-4 Type: ADM IN Attending Dr: Dharmesh Zavala DO Copies to: ~ Date of Service: 01/10/2022 Subjective Subjective Narrative: When I entered the room the patient tells me that he is getting a pain in the thighs on the top of his legs. He does mention that the people in [place] told me that was due to the [...] mg 01/09/22 14:41 Bisacodyl 10 Mg Supp.Rect TN 01/09/23 14:40 DAILY PRN Constipation Bisacodyl 10 [...] Propionate 1 spray 01/09/22 15:17 Fluticasone Propionate [place] 120 [place]/16 Gm Bottle NARES-BOTH 01/09/23 15:16 QHS PRN [...] mg 01/09/22 22:00 Eszopiclone PO 01/09/23 21:59 [facility] Nystatin 1 applic 01/09/22 22:00 01/10/22 [...] <Electronically signed by Dharmesh Zavala DO> 01/10/222053 [facility] Work Phone: 1(178) 528-260711-06-2022 Consult note Author Vikas Mane [facility] January 10, 2022 12:35pm Note Date/Time January 10, 2022 9 :20am [facility] [address] [place] [address] Neurology Consult Note Signed Patient: Irineo Wallis Jr MR# : [id number] : 1940 Acct:[id number] Age/Sex: 81 / M Adm Date: 2 Loc: Room: [address] [place] [address] Type: ADM IN Attending Dr: Dharmesh Zavala DO Copies to: Vikas DO Feliciano Mane DO Kristopher L Lindbloom, DO~ HPI Consult Date: 01/10/22 Wet Pour Mixer: Vikas Mane DO PMFSH Vaccinated for COVID-19?: Yes Medical History (Updated 01/10/22 @ 11:30 by Mrav Urena MD) Atrial fibrillation BPH (benign prostatic [...] (Eliquis) 5 mg PO BID #60 tabs 20 [Rx Confirmed 01/09/22] atorvastatin 40 mg tablet [...] Esa Cardoso M.D.01/09/2022 10:11 AM Dictation Location: [facility]03 Renal Ultrasound 01/10/22 05:00 IMPRESSION: No hydronephrosis. Impression dictated by: Esa Cardoso M.D.01/10/2022 9:07 AM Dictation Location: [facility]03 Assessment/Plan (1) Falls frequently: Assessment/Problem Details: HPI: [...] rapidly alternating movements. No limb dysmetria with opzyjg-vcze-lunwgq testing. DATA REVIEW: MRI lumbar spine from [...] <Electronically signed by Vikas Mane DO> 01/10/22 [facility] Work Phone: [phone]) 670-402411-06-2022 Consult note Author Marv Urena [facility] January 10, 2022 11:32am Note Date/Time January 10, 2022 1 1:32am [facility] [address] [place] [address] Cardiology Consult Note Signed Patient: Irineo Wallis Jr MR# : [id number] : 1940 Acct:[id number] Age/Sex: 81 / M Adm Date: 2 Loc: Room: [address] [place] [address] Type: ADM IN Attending Dr: Dharmesh Zavala [...] has adequate social support at home. [facility]?: Yes Medical [...] (Entresto) 1 tab PO BID #60 tabs 10/30/20 [Rx Confirmed 01/09/22] bumetanide 1 mg tablet [...] x10E3/uL Lymph # (Auto) 1.0 (1.00-4.8) x10E3/uL [place] # (Auto) 1.0 H (0.0-0.8) x10E3/uL Eos [...] Bradycardia, unspecified Documented By: Marv Urena MD, [facility] 2 1125 Signed By: <Electronically signed by [facility] Marv Urena> 01/10/22 1132 [facility] Work Phone: 1(167) 822-101511-05-2022 History and physical note Author Dharmesh Zavala [facility] January 09, 2022 3:30pm Note Date/Time January 09, 2022 3 :30pm [facility] [address] [place] [address] Hospitalist H&P Signed Patient: Irineo Wallis Jr MR# : [id number] : 1940 Acct:[id number] Age/Sex: 81 / M Adm Date: 2 Loc: Room: [address] [place] [address] Type: ADM IN Attending Dr: Dharmesh Zavala DO Copies to: Feliciano Ga,DO Dharmesh Zavala DO~ HPI DATE OF EXAMINATION: 01/09/22 CHIEF [...] that he had seen a urologist in [place] recently. Patient used to be on a number of prostate medications but apparently they were stopped because they are not doing what they are supposed to be doing. The patient andhis daughter have a discussion about what urology was doing for the situation without finding a specific answer. Patient also describes that he has been veryconstipated lately and takes an unspecified ffpw-kfu-zykthjz generic stool softener. His daughter does point [...] radiofrequency ablations by pain management doctor in [place]. Review of Systems Review of Systems Review [...] % (Auto) 13.5 % (.) 01/09/22 10:36 [place] % (Auto) 14.2 % (.) 01/09/22 10:36 Eos % (Auto) 0.1 % (.) 01/09/22 10:36 Baso % (Auto) 1.0 % (.) 01/09/22 10:36 Neut # (Auto) 4.3 x10E3/uL (1.8-7.7) 01/09/22 10:36 Lymph # (Auto) 0.8 x10E3/uL (1.00-4.8) L 01/09/22 10:36 [place] # (Auto) 0.9 x10E3/uL (0.0-0.8) H 01/09/22 [...] pH 5.5 (5.0-9.0) 01/09/22 12:42 Ur Specific [place] 1.018 (1.001-1.030) 01/09/22 12:42 Urine Protein Trace [...] signed by Dharmesh Zavala DO> 01/09/22 1530 [facility] Work Phone: [phone] 610-660111-03-2022 Evaluation note* Encounter Date Diagnosis Assessment Notes [...] in a week to re-evaluate the area. [employer] Other 10-21-2022 Evaluation note* Encounter Date Diagnosis Assessment Notes Treatment Notes Treatment Clinical Notes Dec, Lower extremity edema (ICD-10 - R60.0) [employer] Other 10-13-2022 NoteCONSULTATION CONSULTATION DATE: 12/17/2021 HISTORY [...] next refill, we will change it to Ingram 5/325 daily p.r.n. and the patient is encouraged to increase oral fluids and to continue with his stool softener on a daily basis. Heat education was discussed with the patient, as far as frequency and consistency. We will see him in three months' time, unless otherwise indicated, and all questions answered today.[id number] NoteCONSULTATION CONSULTATION DATE: 11/12/2021 HISTORY OF PRESENT [...] followed up in the office post procedure.[id number] Evaluation note* Encounter Date Diagnosis Assessment Notes [...] manage his swelling better. He voiced understanding. [employer] Other 07-25-2022 Evaluation note* Encounter Date Diagnosis Assessment Notes Treatment Notes Treatment Clinical Notes Sep, CHF (congestive heart failure) (ICD-10 - I50.9) [employer] Other 07-08-2022 Evaluation note* Encounter Date Diagnosis Assessment Notes Treatment Notes Treatment Clinical Notes Sep, CHF (congestive heart failure) (ICD-10 - I50.9) Patient is to hold bumex until re-evaluated in one month per Dr. Feliciano Ga. [employer] Other 07-07-2022 Evaluation note* Encounter Date Diagnosis Assessment Notes Treatment Notes Treatment Clinical Notes Sep, Atrial fibrillation (ICD-10 - I48.91) [employer] Other 07-01-2022 Evaluation note* Encounter Date Diagnosis Assessment Notes Treatment Notes Treatment Clinical Notes Sep, Insomnia (ICD-10 - G47.00) Sep, Gout (ICD-10 - M10.9) [employer] Other 06-27-2022 Evaluation note* Encounter Date Diagnosis [...] is in AF today. He did see tool machinist a few weeks ago and is stable [...] continue with current medications at this time. [employer] Other 06-09-2022 NoteCONSULTATION CONSULTATION DATE: 08/13/2021 This [...] in three months' time unless otherwise indicated. [facility] Signed and Approved by: MONSERRAT RODARTE . 08/20/2021 16:02:00[facility]03-21-2022 Evaluation note* Encounter Date Diagnosis Assessment Notes Treatment Notes Treatment Clinical Notes May, Insomnia (ICD-10 - G47.00) [employer] Other 01-05-2022 Evaluation note* Encounter Date Diagnosis Assessment Notes Treatment Notes Treatment Clinical Notes Mar, Atrial fibrillation (ICD-10 - I48.91) [employer] Other 12-30-2021 Evaluation note* Encounter Date Diagnosis Assessment Notes Treatment Notes Treatment Clinical Notes Feb, Insomnia (ICD-10 - G47.00) [employer] Other 11-15-2021 Evaluation note* Encounter Date Diagnosis [...] Screening for prostate cancer (ICD-10 - Z12.5) [employer] Other 03-19-2007 History general Narrative - Reported* Type Description Date Medical History EKG 05-23-2006 Medical History MRI Lumbar Spine 01-13-11; [facility] Medical History 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 Medical History 01/22/14-stress test and echocar diogram at [facility] Medical History follows with urology Medical History 05/11/16 Stress Test Medical History f/u with Dr Mcintyre for CHF, A-F ib Medical History Dr Brambila pain mgmt- back spondyl olysis Medical History MUGA Stress test 06/14/16 [facility] Medical History 05/10/2018 Colonscop y [...] Surgical History DUANE Lezama 11/05/19 Hospitalization History [facility] [place]- CHF, A-Fib 04/2016 [employer] 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 Other Consult note Author Vikas Mane [facility] January 10, 2022 12:35pm Note Date/Time January 10, 2022 9 :20am [facility] [address] [place] [address] Neurology Consult Note Signed Patient: Irineo Wallis Jr MR# : [id number] : 1940 Acct:[id number] Age/Sex: 81 / M Adm Date: 2 Loc: 3T Room: [address] [place] [address] Type: ADM IN Attending Dr: Dharmesh Zavala DO Copies to: DO Feliciano Pollock DO Kristopher L Lindbloom, DO~ HPI Consult Date: 01/10/22 Wet Pour Mixer: Vikas Mane DO PMFSH Vaccinated for COVID-19?: [...] Esa Cardoso M.D.01/09/2022 10:11 AM Dictation Location: [facility] Renal Ultrasound 01/10/22 05:00 IMPRESSION: No hydronephrosis. Impression dictated by: Esa Cardoso M.D.01/10/2022 9:07 AM Dictation Location: [place] [address] Assessment/Plan (1) Falls frequently: Assessment/Problem Details: HPI: [...] rapidly alternating movements. No limb dysmetria with qhlsgz-mdvs-riaxzo testing. DATA REVIEW: MRI lumbar spine from [...] <Electronically signed by Vikas Mane DO> 01/10/22 7711 [facility] Work Phone: Consult note Author Marv Urena [facility] January 10, 2022 11:32am Note Date/Time January 10, 2022 1 1:32am [facility] [address] [place] [address] Cardiology Consult Note Signed Patient: JadynroelIrineo Jr MR# : [id number] : 1940 Acct:[id number] Age/Sex: 81 / M Adm Date: 2 Loc: 3T Room: 0U6340-1 Type: ADM IN Attending Dr: Dharmesh Zavala DO Copies to: DO Marv Catalan MD, [facility] Dharmesh Zavala, ~ Cardiology HPI History [...] has adequate social support at home. [facility] Vacc[facility] for COVID-19?: Yes Medical [...] x10E3/uL Lymph # (Auto) 1.0 (1.00-4.8) x10E3/uL [place] # (Auto) 1.0 H (0.0-0.8) x10E3/uL Eos [...] Bradycardia, unspecified Documented By: Marv Urena MD, [facility] 2 1125 Signed By: <Electronically signed by [facility] Marv Urena> 01/10/22 1132 [facility] Work Phone: Consult note Author Frankie Reynolds [facility] January 13, 2022 10:45am Note Date/Time January 13, 2022 1 0:45am [facility] [address] [place] [address] Infect. Disease Consult Note Signed Patient: Irineo Wallis Jr MR# : [id number] : 1940 Acct:[id number] Age/Sex: 81 / M Adm Date: 2 Loc: Room: [address] [place] [address] Type: ADM IN Attending Dr: Raji Ennis MD Copies to: MD Feliciano Giles DO Michael S Blank, MD~ HPI Data of Consult Consult date: 01/13/22 Requesting Physician: Raji Ennis MD Primary Care Provider: Feliciano Ga DO Consult Narrative History of present illness: Mr. Wallsi is a 81 year old male who [...] Bisacodyl (Bisacodyl 10 Mg Supp.Rect) 10 mg TN DAILY PRN PRN Reason: Constipation Stop: 01/09/23 14:40 Bisacodyl (Bisacodyl 5 Mg Tablet.Dr) 10 mg PO DAILY PRN PRN Reason: Constipation Stop: 01/09/23 14:40 Last Admin: 01/12/22 08:22 Dose: 10 mg Bumetanide (Bumetanide 1 Mg/4 Ml Vial) 1 mg IV-PUSH BID@0800,1600 [facility] Stop: 01/13/23 07:59 Last Admin: 01/13/22 09:43 Dose: 1 mg Docusate Sodium (Docusate 100 Mg Capsule) 100 mg PO BID [facility] Stop: 01/09/23 20:59 Last Admin: 01/13/22 09:43 Dose: 100 mg Fluticasone Propionate (Fluticasone Propionate [place] 120 [place]/16 Gm Bottle) 1 spray NARES-BOTH QHS PRN PRN Reason: Nasal Congestion Stop: 01/09/23 15:16 Magnesium Sulfate (Magnesium Sulf 2gm-*Swfi*) 2 gm in 50 mls @ 25 mls/hr IV DAILY PRN PRN Reason: Magnesium Level < 1.5 Stop: 01/09/23 14:40 Cefepime HCl (Maxipime) 2 gm in 50 mls @ 100 mls/hr IV Q12H [facility] Last Admin: 01/13/22 03:07 Dose: 100 mls/hr Levothyroxine Sodium (Levothyroxine 150 Mcg Tablet) 150 mcg PO DAILY@0630 [facility] Stop: 01/10/23 06:29 Last Admin: 01/13/22 06:26 Dose: 150 mcg Magnesium Hydroxide (Magnesium Hydroxide Susp 30 Ml Udc) 30 ml PO BID PRN PRN Reason: Constipation Stop: 01/09/23 14:40 Magnesium Oxide (Magnesium Oxide 400 Mg Tablet) 400 mg PO DAILY [facility] Stop: 01/10/23 08:59 Last Admin: 01/13/22 09:43 Dose: 400 mg Nitroglycerin (Nitroglycerin 0.4 Mg Tab.Subl) 0.4 mg SUBLINGUAL Q5MIN.X3 PRN PRN Reason: Chest Pain Stop: 01/09/23 14:40 Pom Eszopiclone 3 Mg (Tablet) 3 mg PO HS [facility] Stop: 01/11/23 21:59 Last Admin: 01/12/22 22:51 Dose: 3 mg Nystatin (Nystatin 100,000 Unit/Gram Powder 15 Gm Bottle) 1 applic TOPICAL TID [facility] Stop: 01/09/23 21:59 Last Admin: 01/13/22 09:43 [...] 20 Meq Tab.Er.Prt) 20 meq PO QPM [facility] Stop: 01/09/23 20:59 Last Admin: 01/12/22 22:51 Dose: 20 meq Sodium Chloride (Sodium Chloride 0.9 % 10 Ml Syringe) 0 ml IV-PUSH PRN PRN PRN Reason: Flush Stop: 01/09/23 09:37 Last Admin: 01/10/22 23:31 Dose: 10 ml Sodium Chloride (Sodium Chloride 0.9 % 10 Ml Syringe) 0 ml IV-PUSH QSHIFT [facility] Stop: 01/09/23 21:59 Last Admin: 01/13/22 06:26 [...] signed by MD Frankie Reynolds> 01/13/22 1045 [facility] Work Phone: Evaluation noteNo assessment information available [facility] Work Phone: Evaluation noteNo InformationNort [employer] Other Evaluation note* Diagnosis Onset Date Resolution Status Acute decompensated heart failure acute Acute exacerbation of chronic low back pain acute Elevated troponin acute Fall acute Hypoxemia acute [facility] Work Phone: Evaluation note* Diagnosis Onset Date Resolution Status Acute decompensated heart failure acute Acute exacerbation of chronic low back pain acute [id number] acute Acute respiratory failure with hypoxia acute [...] apnea acute Atrial fibrillation chronic Hypertension chronic [facility] Work Phone: Evaluation note* Diagnosis Chronic atrial fibrillation (Multi) Atrial fibrillation Essential hypertension, benign Heart failure, NYHA class 2 (Multi) Hyperlipidemia, unspecified hyperlipidemia type documented in this encounter [facility] Work Phone: Evaluation note* Author Mayra Ponce [facility] Authored September 21, 2023 10:2 1am The above note written by ROSALIE Perry acting as human recorder, note dictated by Dr. Feliciano Ga. [facility] Work Phone: History and physical note Author Dharmesh Zavala [facility] January 09, 2022 3:30pm Note Date/Time January 09, 2022 3 :30pm [facility] [address] [place] [address] Hospitalist H&P Signed Patient: Irineo Wallis Jr MR# : [id number] : 1940 Acct:[id number] Age/Sex: 81 / M Adm Date: 2 Loc: Room: [address] [place] [address] Type: ADM IN Attending Dr: Dharmesh Zavala [...] that he had seen a urologist in [place] recently. Patient used to be on a number of prostate medications but apparently they were stopped because they are not doing what they are supposed to be doing. The patient andhis daughter have a discussion about what urology was doing for the situation without finding a specific answer. Patient also describes that he has been veryconstipated lately and takes an unspecified bfza-vgu-ewwcnnz generic stool softener. His daughter does point [...] radiofrequency ablations by pain management doctor in [place]. Review of Systems Review of Systems Review of systems: 10 systems are reviewed and are negative except as mentioned elsewhere in the documentation. [facility] Vacc[facility] for [facility]-19?: Yes Medical [...] % (Auto) 13.5 % (.) 01/09/22 10:36 [place] % (Auto) 14.2 % (.) 01/09/22 10:36 Eos % (Auto) 0.1 % (.) 01/09/22 10:36 Baso % (Auto) 1.0 % (.) 01/09/22 10:36 Neut # (Auto) 4.3 x10E3/uL (1.8-7.7) 01/09/22 10:36 Lymph # (Auto) 0.8 x10E3/uL (1.00-4.8) L 01/09/22 10:36 [place] # (Auto) 0.9 x10E3/uL (0.0-0.8) H 01/09/22 [...] pH 5.5 (5.0-9.0) 01/09/22 12:42 Ur Specific [place] 1.018 (1.001-1.030) 01/09/22 12:42 Urine Protein Trace [...] signed by Dharmesh Zavala DO> 01/09/22 1530 [facility] Work Phone: History of Present illness Narrative* The patient states he has been generally stable since the last visit. Comorbid Illnesses: hypertension. * Symptoms: denies chest pain at rest, denies exertional chest pain, denies dyspnea, denies fatigue, stable exercise intolerance, denies palpitations, denies edema, denies orthopnea, denies dizziness and denies orthostatic dizziness. * [facility] Work Phone: history of Present illness Narrative* The patient states he has been generally stable since the last visit. Comorbid Illnesses: hypertension. * Symptoms: denies chest pain at rest, denies exertional chest pain, denies dyspnea, denies fatigue, stable exercise intolerance, denies palpitations, denies edema, denies orthopnea, denies dizziness and denies orthostatic dizziness. * Disease Monitoring: [facility] 250 DO Work Phone: History of Present [...] is not doing well with his goals. [facility] 250 DO Work Phone: History of Present [...] is not doing well with his goals. [facility] 600 DO Work Phone: Hospital Discharge instructions Additional Instructions Penitentiary Facility to manage care: - Full code [...] unable to void, chou catheter removed on 01/16[facility] Work Phone: Progress note Author Dharmesh Zavala [facility] January 10, 2022 8:54pm Note Date/Time January 10, 2022 8 :54pm [facility] [address] [place] [address] Hospitalist Progress Note Signed Patient: Irineo Wallis Jr MR# : [id number] : 1940 Acct:[id number] Age/Sex: 81 / M Adm Date: 2 Loc: Room: [address] [place] [address] Type: ADM IN Attending Dr: Dharmesh Zavala DO Copies to: ~ Date of Service: 01/10/2022 Subjective Subjective Narrative: When I entered the room the patient tells me that he is getting a pain in the thighs on the top of his legs. He does mention that the people in [place] told me that was due to the [...] mg 01/09/22 14:41 Bisacodyl 10 Mg Supp.Rect TN 01/09/23 14:40 DAILY PRN Constipation Bisacodyl 10 mg 01/09/22 14:41 Bisacodyl 5 Mg Tablet.Dr PO 01/09/23 14:40 DAILY PRN Constipation Bumetanide 1 mg 01/09/22 15:30 01/10/22 14:42 Bumetanide 1 Mg/4 Ml Vial IV-PUSH 01/09/23 15:29 1 mg Q8H ANIBAL Administration Docusate Sodium 100 mg 01/09/22 21:00 01/10/22 08:58 Docusate 100 Mg Capsule PO 01/09/23 20:59 Not Given BID [facility] Fluticasone Propionate 1 spray 01/09/22 15:17 Fluticasone Propionate [place] 120 [place]/16 Gm Bottle NARES-BOTH 01/09/23 15:16 QHS PRN [...] <Electronically signed by Dharmesh Zavala DO> 01/10/222053 [facility] Work Phone: Progress note Author Mani Dickens [facility] January 11, 2022 5:02pm Note Date/Time January 11, 2022 8 :55am [facility] [address] [place] [address] Neurology Progress Note Signed Patient: Irineo Wallis Jr MR# : [id number] : 1940 Acct:[id number] Age/Sex: 81 / M Adm Date: 2 Loc: Room: [address] [place] [address] Type: ADM IN Attending Dr: Raji Ennis [...] knee to all modalities. CEREBELLAR EXAM: * Cqfcxe-nk-dabe and alternating movements are intact and normal in bilateral upper extremities * Lcnm-sj-spfi and alternating movements are intact and normal [...] Therapy Recommendations: OT Recommendations OT Recommended Discharge Penitentiary Facility Location OT Recommended Services at Physical Therapy,Occupational Therapy Discharge PT Recommendations PT Recommended Discharge Penitentiary Facility Location PT Recommended Services at Physical [...] the plan of care and confirmed the CATERING ADMINISTRATIVE ASSISTANT note The patient is an 81-year-old man [...] unspecified Status: Acute Documented By: MEI Tristan [id number] Signed By: <Electronically signed by MEI Knight> 01/11/22 1426 <Electronically signed by MD Mani Dickens> 01/11/22 1702 [facility] Work Phone: Progress note Author W Be Mcintyre [facility] January 11, 2022 2:09pm Note Date/Time January 11, 2022 2 :09pm [facility] [address] [place], [place] [id number] Cardiology Progress Note Signed Patient: Irineo Wallis Jr MR# : [id number] : 1940 Acct:[id number] Age/Sex: 81 / M Adm Date: 2 Loc: 3T Room: [address] [place] [address] Type: ADM IN Attending Dr: Raji Ennis [...] % (Auto) 73.8 Lymph % (Auto) 13.7 [place] % (Auto) 9.6 Eos % (Auto) 2.2 Baso % (Auto) 0.7 Neut # (Auto) 6.3 Lymph # (Auto) 1.2 [place] # (Auto) 0.8 Eos # (Auto) 0.2 [...] <Electronically signed by Bhupinder Mcintyre DO> 01/11/22 1408 [facility] Work Phone: Progress note Author Raji [facility] January 11, 2022 5:04pm Note Date/Time January 11, 2022 5 :04pm [facility] [address] [place] [address] Hospitalist Progress Note Signed Patient: Irineo Wallis Jr MR# : [id number] : 1940 Acct:[id number] Age/Sex: 81 / M Adm Date: 2 Loc: 3T Room: [address] [place] [address] Type: ADM IN Attending Dr: Raji Ennis [...] mg 01/09/22 14:41 Bisacodyl 10 Mg Supp.Rect TN 01/09/23 14:40 DAILY PRN Constipation Bisacodyl 10 [...] Propionate 1 spray 01/09/22 15:17 Fluticasone Propionate [place] 120 [place]/16 Gm Bottle NARES-BOTH 01/09/23 15:16 QHS PRN [...] mg 01/11/22 22:00 Tablet PO 01/11/23 21:59 [facility] Nystatin 1 applic 01/09/22 22:00 01/11/22 15:24 [...] prophylaxis Documented By: Raji Ennis MD 01/11/22 0907 Signed By: <Electronically signed by Raji Ennis MD> 01/11/22 1709 [facility] Work Phone: Progress note Author Mani Dickens [facility] January 12, 2022 4:10pm Note Date/Time January 12, 2022 8 :19am [facility] [address] [place] [address] Neurology Progress Note Signed Patient: Irineo Wallis Jr MR# : [id number] : 1940 Acct:[id number] Age/Sex: 81 / M Adm Date: 2 Loc: 3T Room: [address] [place] [address] Type: ADM IN Attending Dr: Raji Ennis [...] extremities * Unable to test finger-nose or ctrj-fi-memn due to drowsiness REFLEX EXAM: * 1/4 [...] Therapy Recommendations: OT Recommendations OT Recommended Discharge Penitentiary Facility Location OT Recommended Services at Physical Therapy,Occupational Therapy Discharge PT Recommendations PT Recommended Discharge Penitentiary Facility Location PT Recommended Services at Physical [...] the plan of care and confirmed the CATERING ADMINISTRATIVE ASSISTANT note The patient is an 81-year-old man [...] By: <Electronically signed by MEI Knight> 01/12/22 105 <Electronically signed by MD Mani Dickens> 01/12/22 1610 [facility] Work Phone: Progress note Author Raji Ennis [facility] January 12, 2022 4:38pm Note Date/Time January 12, 2022 4 :38pm [facility] [address] [place] [address] Hospitalist Progress Note Signed Patient: Irineo Wallis Jr MR# : [id number] : 1940 Acct:[id number] Age/Sex: 81 / M Adm Date: 2 Loc: Room: [address] [place] [address] Type: ADM IN Attending Dr: Raji Ennis [...] mg 01/09/22 14:41 Bisacodyl 10 Mg Supp.Rect TN 01/09/23 14:40 DAILY PRN Constipation Bisacodyl 10 [...] Propionate 1 spray 01/09/22 15:17 Fluticasone Propionate [place] 120 [place]/16 Gm Bottle NARES-BOTH 01/09/23 15:16 QHS PRN [...] 15:06 01/12/22 15:50 Maxipime IV Infused Q12H [facility] Infusion Levothyroxine Sodium 150 mcg 01/10/22 06:30 01/12/22 05:47 Levothyroxine 150 Mcg Tablet PO 01/10/23 06:29 150 mcg DAILY@0630 [facility] Administration Magnesium Hydroxide 30 ml 01/09/22 14:41 [...] signed by Raji Ennis MD> 01/12/22 1638 [facility] Work Phone: Progress note Author W Be Mcintyre [facility] January 12, 2022 6:11pm Note Date/Time January 12, 2022 6 :11pm [facility] [address] [place] [address] Cardiology Progress Note Signed Patient: Irineo Wallis Jr MR# : [id number] : 1940 Acct:[id number] Age/Sex: 81 / M Adm Date: 2 Loc: Room: [address] [place] [address] Type: ADM IN Attending Dr: Raji Ennis [...] patient in conjunction with medical student Ramon Lusi and concur with his examination and assessment. [...] % (Auto) 76.3 Lymph % (Auto) 12.2 [place] % (Auto) 9.1 Eos % (Auto) 1.9 Baso % (Auto) 0.5 Neut # (Auto) 7.7 Lymph # (Auto) 1.2 [place] # (Auto) 0.9 H Eos # (Auto) [...] 2.9 Globulin (PEP) 2.4 Albumin/Globulin (PEP) 1.2 Xncai-7-Qpwdzwlqt 0.4 Dfvxz-6-Zocmlrqty 0.7 Beta Globulins 0.6 L Gamma Globulins 0.8 M-Franky Not observed PEP Note IgG 816 IgA 171 IgM 105 Serum Immunofixation 01/12/22 06:42 Corrected WBC Uncorrected WBC Count RBC Hgb Hct MCV MCH MCHC RDW Plt Count MPV Neut % (Auto) Lymph % (Auto) [place] % (Auto) Eos % (Auto) Baso % (Auto) Neut # (Auto) Lymph # (Auto) [place] # (Auto) Eos # (Auto) Baso # (Auto) Nucleated RBC % (auto) PHA Creatinine Clear Sodium Potassium Chloride Carbon Dioxide Anion Gap BUN Creatinine Est GFR ( Amer) Est GFR (Non-Af Amer) Glucose Calcium C-Reactive Prot, Quant 8.4 H Serum Total Protein Albumin (Send Out) Globulin (PEP) Albumin/Globulin (PEP) Lyumc-0-Qvsxhaztn Grokl-1-Efstqcssm Beta Globulins Gamma Globulins M-Franky PEP Note [...] <Electronically signed by Bhupinder Mcintyre DO> 01/12/221810 [facility] Work Phone: Progress note Author Mani Dickens [facility] January 13, 2022 6:10pm Note Date/Time January 13, 2022 8 :13am [facility] [address] [place] [address] Neurology Progress Note Signed with Addenda Patient: Irineo Wallis Jr MR# : [id number] : 1940 Acct:[id number] Age/Sex: 81 / M Adm Date: 2 Loc: Room: [address] [place] [address] Type: ADM IN Attending Dr: Raji Ennis [...] extremities * Unable to test finger-nose or oigc-xc-xqww due to drowsiness REFLEX EXAM: * 1/4 [...] Therapy Recommendations: OT Recommendations OT Recommended Discharge Penitentiary Facility Location OT Recommended Services at Physical Therapy,Occupational Therapy Discharge PT Recommendations PT Recommended Discharge Penitentiary Facility Location PT Recommended Services at Physical [...] <Electronically signed by MEI Knight> 01/13/22 1520 [facility] Work Phone: Progress note Author Raji Ennis [facility] January 13, 2022 3:44pm Note Date/Time January 13, 2022 3 :27pm [facility] [address] [place] [address] Hospitalist Progress Note Signed Patient: Irineo Wallis Jr MR# : [id number] : 1940 Acct:[id number] Age/Sex: 81 / M Adm Date: 2 Loc: 3T Room: [address] [place] [address] Type: ADM IN Attending Dr: Raji Ennis [...] mg 01/09/22 14:41 Bisacodyl 10 Mg Supp.Rect TN 01/09/23 14:40 DAILY PRN Constipation Bisacodyl 10 mg 01/09/22 14:41 01/12/22 08:22 Bisacodyl 5 Mg Tablet.Dr PO 01/09/23 14:40 10 mg DAILY PRN Administration Constipation Bumetanide 1 mg 01/13/22 16:00 Bumetanide 1 Mg Tablet PO 01/13/23 15:59 BID@0800,1600 [facility] Docusate Sodium 100 mg 01/09/22 21:00 01/13/22 09:43 Docusate 100 Mg Capsule PO 01/09/23 20:59 100 mg BID [facility] Administration Fluticasone Propionate 1 spray 01/09/22 15:17 Fluticasone Propionate [place] 120 [place]/16 Gm Bottle NARES-BOTH 01/09/23 15:16 QHS PRN [...] prophylaxis Documented By: Raji Ennis MD 01/13/22 1529 Signed By: <Electronically signed by Raji Ennis MD> 01/13/22 1544 [facility] Work Phone: Progress note Author Frankie Reynolds [facility] January 14, 2022 9:39am Note Date/Time January 14, 2022 9:39am [facility] [address] [place], [place] [id number] Infect. Disease Progress Note Signed Patient: Irineo Wallis Jr MR# : [id number] : 1940 Acct:[id number] Age/Sex: 81 / M Adm Date: 2 Loc: Room: [address] [place] [address] Type: ADM IN Attending Dr: Raji Ennis [...] Appearance Clear Urine pH 5.5 Ur Specific [place] 1.012 Urine Protein 30 H Urine Glucose [...] Bisacodyl (Bisacodyl 10 Mg Supp.Rect) 10 mg TN DAILY PRN PRN Reason: Constipation Stop: 01/09/23 14:40 Bisacodyl (Bisacodyl 5 Mg Tablet.Dr) 10 mg PO DAILY PRN PRN Reason: Constipation Stop: 01/09/23 14:40 Last Admin: 01/13/22 21:26 Dose: 10 mg Bumetanide (Bumetanide 1 Mg Tablet) 1 mg PO BID@0800,1600 [facility] Stop: 01/13/23 15:59 Docusate Sodium (Docusate 100 Mg Capsule) 100 mg PO BID [facility] Stop: 01/09/23 20:59 Last Admin: 01/14/22 08:03 Dose: 100 mg Fluticasone Propionate (Fluticasone Propionate [place] 120 [place]/16 Gm Bottle) 1 spray NARES-BOTH QHS PRN PRN Reason: Nasal Congestion Stop: 01/09/23 15:16 Magnesium Sulfate (Magnesium Sulf 2gm-*Swfi*) 2 gm in 50 mls @ 25 mls/hr IV DAILY PRN PRN Reason: Magnesium Level < 1.5 Stop: 01/09/23 14:40 Cefepime HCl (Maxipime) 2 gm in 50 mls @ 100 mls/hr IV Q12H [facility] Last Admin: 01/14/22 03:05 Dose: 100 mls/hr Vancomycin HCl 1.25 gm/ (Dextrose) 275 mls @ 183.333 mls/hr IV Q24H [facility] Stop: 01/13/23 18:59 Last Infusion: 01/13/22 21:17 Dose: Infused Levothyroxine Sodium (Levothyroxine 150 Mcg Tablet) 150 mcg PO DAILY@0630 [facility] Stop: 01/10/23 06:29 Last Admin: 01/14/22 05:54 Dose: 150 mcg Magnesium Hydroxide (Magnesium Hydroxide Susp 30 Ml Udc) 30 ml PO BID PRN PRN Reason: Constipation Stop: 01/09/23 14:40 Magnesium Oxide (Magnesium Oxide 400 Mg Tablet) 400 mg PO DAILY [facility] Stop: 01/10/23 08:59 Last Admin: 01/14/22 08:04 Dose: 400 mg Nitroglycerin (Nitroglycerin 0.4 Mg Tab.Subl) 0.4 mg SUBLINGUAL Q5MIN.X3 PRN PRN Reason: Chest Pain Stop: 01/09/23 14:40 Pom Eszopiclone 3 Mg (Tablet) 3 mg PO HS [facility] Stop: 01/11/23 21:59 Last Admin: 01/13/22 21:27 Dose: 3 mg Nystatin (Nystatin 100,000 Unit/Gram Powder 15 Gm Bottle) 1 applic TOPICAL TID [facility] Stop: 01/09/23 21:59 Last Admin: 01/14/22 08:04 [...] 20 Meq Tab.Er.Prt) 20 meq PO QPM [facility] Stop: 01/09/23 20:59 Last Admin: 01/13/22 21:26 Dose: 20 meq Sodium Chloride (Sodium Chloride 0.9 % 10 Ml Syringe) 0 ml IV-PUSH PRN PRN PRN Reason: Flush Stop: 01/09/23 09:37 Last Admin: 01/10/22 23:31 Dose: 10 ml Sodium Chloride (Sodium Chloride 0.9 % 10 Ml Syringe) 0 ml IV-PUSH QSHIFT [facility] Stop: 01/09/23 21:59 Last Admin: 01/14/22 05:54 [...] acid was within normal limits Documented By: Farnkie Reynolds MD 01/14/2235 Signed By: <Electronically signed by MD Frankie Reynolds> 01/14/2239 [facility] Work Phone: Progress note Author Raji Ennis [facility] January 14, 2022 5:43pm Note Date/Time January 14, 2022 5:43pm [facility] [address] [place] [address] Hospitalist Progress Note Signed Patient: Irineo Wallis Jr MR# : [id number] : 1940 Acct:[id number] Age/Sex: 81 / M Adm Date: 2 Loc: Room: [address] [place] [address] Type: ADM IN Attending Dr: Raji Ennis [...] mg 01/09/22 14:41 Bisacodyl 10 Mg Supp.Rect TN 01/09/23 14:40 DAILY PRN Constipation Bisacodyl 10 mg 01/09/22 14:41 01/13/22 21:26 Bisacodyl [address] PALMER 01/09/23 14:40 10 mg DAILY PRN Administration Constipation Bumetanide 1 mg 01/14/22 16:00 01/14/22 15:13 Bumetanide 1 Mg Tablet PO 01/14/23 15:59 1 mg DAILY@0800 [facility] Administration Docusate Sodium 100 mg 01/09/22 21:00 01/14/22 08:03 Docusate 100 Mg Capsule PO 01/09/23 20:59 100 mg BID [facility] Administration Fluticasone Propionate 1 spray 01/09/22 15:17 Fluticasone Propionate [place] 120 [place]/16 Gm Bottle NARES-BOTH 01/09/23 15:16 QHS PRN [...] signed by Raji Ennis MD> 01/14/22 174 [facility] Work Phone: Progress note Author Frankie Reynolds [facility] January 15, 2022 12:21pm Note Date/Time January 15, 2022 12:21pm [facility] [address] [place] [address] Infect. Disease Progress Note Signed Patient: Irineo Wallis Jr MR# : [id number] : 1940 Acct:[id number] Age/Sex: 81 / M Adm Date: 2 Loc: Room: [address] [place] [address] Type: ADM IN Attending Dr: Raji Ennis [...] Bisacodyl (Bisacodyl 10 Mg Supp.Rect) 10 mg TN DAILY PRN PRN Reason: Constipation Stop: 01/09/23 14:40 Bisacodyl (Bisacodyl 5 Mg Tablet.Dr) 10 mg PO DAILY PRN PRN Reason: Constipation Stop: 01/09/23 14:40 Last Admin: 01/14/22 19:57 Dose: 10 mg Bumetanide (Bumetanide 1 Mg Tablet) 1 mg PO DAILY@0800 [facility] Stop: 01/14/23 15:59 Last Admin: 01/15/22 08:46 Dose: 1 mg Docusate Sodium (Docusate 100 Mg Capsule) 100 mg PO BID [facility] Stop: 01/09/23 20:59 Last Admin: 01/15/22 08:46 Dose: 100 mg Fluticasone Propionate (Fluticasone Propionate [place] 120 [place]/16 Gm Bottle) 1 spray NARES-BOTH QHS PRN PRN Reason: Nasal Congestion Stop: 01/09/23 15:16 Magnesium Sulfate (Magnesium Sulf 2gm-*Swfi*) 2 gm in 50 mls @ 25 mls/hr IV DAILY PRN PRN Reason: Magnesium Level < 1.5 Stop: 01/09/23 14:40 Levothyroxine Sodium (Levothyroxine 150 Mcg Tablet) 150 mcg PO DAILY@0630 [facility] Stop: 01/10/23 06:29 Last Admin: 01/15/22 06:38 Dose: Not Given Magnesium Hydroxide (Magnesium Hydroxide Susp 30 Ml Udc) 30 ml PO BID PRN PRN Reason: Constipation Stop: 01/09/23 14:40 Magnesium Oxide (Magnesium Oxide 400 Mg Tablet) 400 mg PO DAILY [facility] Stop: 01/10/23 08:59 Last Admin: 01/15/22 08:46 Dose: 400 mg Nitroglycerin (Nitroglycerin 0.4 Mg Tab.Subl) 0.4 mg SUBLINGUAL Q5MIN.X3 PRN PRN Reason: Chest Pain Stop: 01/09/23 14:40 Pom Eszopiclone 3 Mg (Tablet) 3 mg PO HS [facility] Stop: 01/11/23 21:59 Last Admin: 01/14/22 21:32 Dose: 3 mg Nystatin (Nystatin 100,000 Unit/Gram Powder 15 Gm Bottle) 1 applic TOPICAL TID [facility] Stop: 01/09/23 21:59 Last Admin: 01/15/22 08:46 [...] 20 Meq Tab.Er.Prt) 20 meq PO QPM [facility] Stop: 01/09/23 20:59 Last Admin: 01/14/22 21:32 Dose: 20 meq Sodium Chloride (Sodium Chloride 0.9 % 10 Ml Syringe) 0 ml IV-PUSH PRN PRN PRN Reason: Flush Stop: 01/09/23 09:37 Last Admin: 01/10/22 23:31 Dose: 10 ml Sodium Chloride (Sodium Chloride 0.9 % 10 Ml Syringe) 0 ml IV-PUSH QSHIFT [facility] Stop: 01/09/23 21:59 Last Admin: 01/15/22 06:38 [...] By: <Electronically signed by MD Frankie Reynolds> 01/15/221220 [facility] Work Phone: Progress note Author Raji Ennis [facility] January 15, 2022 4:51pm Note Date/Time January 15, 2022 4:51pm [facility] [address] [place] [address] Hospitalist Progress Note Signed Patient: Irineo Wallis Jr MR# : [id number] : 1940 Acct:[id number] Age/Sex: 81 / M Adm Date: 2 Loc: Room: [address] [place] [address] Type: ADM IN Attending Dr: Raji Ennis [...] mg 01/09/22 14:41 Bisacodyl 10 Mg Supp.Rect TN 01/09/23 14:40 DAILY PRN Constipation Bisacodyl 10 [...] Propionate 1 spray 01/09/22 15:17 Fluticasone Propionate [place] 120 [place]/16 Gm Bottle NARES-BOTH 01/09/23 15:16 QHS PRN [...] signed by Raji Ennis MD> 01/15/22 1651 [facility] Work Phone: Reason for referral (narrative)* Consultation (Routine) - Authorized Specialty Diagnoses / Procedures Referred By Contac t Referred To Contact Cardiology Diagnoses Heart failure, NYHA class 2 (Multi) Procedures Follow Up In Cardiology Irineo Mcintyre DO [address] [place] [address] 2, [place] [address] [place] [id number] Irineo Mcintyre DO [address] [facility] 2, [facility] [address] [place] [address] Referral ID Status Reason Start Date Expiration Date V isits Requested Visits Authorized [id number] Authorized 07/13/2023 07/12/2024 1 1 [facility] Work Phone: Summary Purpose Family History No [...] Name Dates Details Family history of ASCVD: [facility] her(V17.49, Z82.49) Status:Active Unknown Family Member Name Dates Details Family history of ASCVD: [facility] her(V17.49, Z82.49) Status:Active Unknown Family Member Name Dates Details Family history of ASCVD: [facility] her(V17.49, Z82.49) Status:Active Relationship Condition Age at [...] Unknown son Malignant neoplasm Unknown Advance Directives No Advanced Directives Records Found [...] July 2021. * January 2022 hospitalized at [facility] due to fall, noted bradycardia with3.0-second [...] rare postural orthostatic h ypotension in the pinion and wheel truer. He denies any palpitations or fast heartbeats. [...] Acute exacerbation of chronic low back pain [id number] Acute respiratory failure with hypoxia Altered mental [...] Acute exacerbation of chronic low back pain [id number] Acute respiratory failure with hypoxia Altered mental [...] Acute exacerbation of chronic low back pain [id number] Acute respiratory failure with hypoxia Altered mental [...] and content) DATE CREATED AUTHOR 08/30/2017 Roman Jason [facility] DATE CREATED AUTHOR AUTHOR'S ORGANIZ ATION 07/09/2022 [facility] DATE CREATED AUTHOR AUTHOR'S ORGANIZ ATION 07/09/2022 [facility] DATE CREATED AUTHOR AUTHOR'S ORGANIZ ATION 07/16/2022 [facility] DATE CREATED AUTHOR AUTHOR'S ORGANIZ ATION 2023 [facility] DATE CREATED AUTHOR AUTHOR'S ORGANIZ ATION 09/19/2023 [facility] DATE CREATED AUTHOR AUTHOR'S ORGANIZ ATION 10/24/2023 [facility] REASON FOR VISIT (unrecogniz ed section [...] DO Primary Care Provider Active Monserrat Rodarte , CATERING ADMINISTRATIVE ASSISTANT-C Attending Provider Active Team Status: Active Member [...] DO Primary Care Provider Active Feliciano Ga DO [facility] Attending Provider Active Team Status: Inactive Member Role Status Dates Feliciano Ga , DO Primary Care Provider Active Feliciano Ga , DO [facility] Attending Provider Active Laboratory Director Relationship Specialty Start Date End Date Feliciano Ga DO PCP - General 01/05/21 Team Status: Inactive Member Role Status Dates Feliciano Ga DO Primary Care Provider Active Sta rt: July 19, 2023 End: July 19, 2023 W Be Mcintyre DO Attending Provider Active S tart: [...] BE BASED ON THE PRIMARY CLINICAL RECORDS. [employer] provides no warranty or guarantee of the accuracy or completeness of information in this document.
[2023-10-24 08:30] VITALS: BP 127/63; PULSE 94; TEMP 36.2; O2SAT 100
[2023-10-24] MEDS: 0.9 % SODIUM CHLORIDE 10 ML SYRINGE - SALINE FLUSH INJ (09:20)
[2023-10-24] MEDS: BUPIVACAINE HCL 0.25% PF 25 MG/10 ML VIAL 2 ML INJ (09:20)
[2023-10-24] MEDS: IOHEXOL 240 MG/ML - 10 ML VIAL INJ (09:20)
[2023-10-24] MEDS: TRIAMCINOLONE ACETONIDE 40 MG/ML VIAL 80 MG INJ (09:21)
[2023-10-24] MEDS: LIDOCAINE HCL 2% 400 MG/20 ML MDV INJ (09:21)
[2023-10-24 09:22] VITALS: BP 136/69; BP 142/63; PULSE 83; PULSE 84; O2SAT 97; O2SAT 98
--- NOTE | 2023-10-24 09:24 | W.PM.PROCNOT ---
Date of procedure: 10/24/23 Pre-op diagnosis: Pain due to lumbar stenosis with neurogenic claudication Post-op diagnosis: same as pre-op Procedure: Procedure: Bilateral L4-5 transforaminal epidural steroid injection Medications: Bupivacaine 0.25% 2cc, lidocaine 2% 1cc, kenalog 80mg The patient was seen and examined in the preoperative holding area.? Informed consent was obtained and placed on the chart.? Patient was brought to the medical procedure unit and placed in the prone position where a timeout was completed verifying the correct patient, procedure site, position, and planned special equipment using sterile aseptic technique.? Under direct fluoroscopic visualization a 25-gauge Quincke tipped spinal needle was advanced at level left L4-5 to the designated neural foramen where contrast dye was injected to show adequate spread.? There was no evidence of vascular or adverse uptake.? Epidural spread was appreciated.? The above-mentioned injectate was then placed in a 1.5 mL aliquot preceded by negative aspiration.? The needle was removed. The same procedure, at the same level, was completed on the opposite side. ? Patient was taken to the postprocedural recovery area and monitored for an appropriate length of time before found suitable for discharge in the accompaniment of a responsible adult. Anesthesia: Local Surgeon: Diana Price Pathology: none sent Condition: stable Disposition: no change
== END 2023-10-24 09:29 | disposition home or self-care (01) ==
LOC: SURGOUT 08:02
PROVIDERS: Visit Provider Anesthesiology
DX: M48.062 Spinal stenosis, lumbar region with neurogenic claudication (principal)
CPT/HCPCS: 64483; J0665; J3301; Q9966

== ENCOUNTER 2023-11-02 08:41 | Outpatient (OUT) | payer MEDICARE, BC, SELFPAY ==
--- NOTE | 2023-11-02 08:59 | P.CN_ITS ---
Consult Note: HPI Data of Consult Patient: known to practice within the last 3 years Requesting Physician: Silvia Kimble NP Primary Care Provider: Non-Staff Physician, MD Consult Narrative Reason for consult: f/u Narrative: Irineo Mendes a pleasant 82 year old male presents for evaluation and management of chronic low back pain. Pain today 4/10 in low back, dull heavy ache, with increasing numbness tingling and weakness of legs. Hx of lumbar stenosis with NC, updated lumbar MRI as noted below. Patient has failed to benefit from greater than 6 weeks PT/HEP. Finds moderate benefit to tylenol and percocet without side effects however he does not like to take percocet, cannot take NSAIDs on eliquis. Axial low back pain improved from prior lumbar RFAs but continues to report heaviness numbness tingling BLE. bilateral L3-4 TFESI followed by bilateral L4-5 TFESI failed to provide any improvement per pt. Patient still interested in surgical consult, did not receive a call from Dr George office. cc:: CC: Silvia Kimble NP Review of Systems ROS Status of ROS 10 or more systems reviewed and unremark able except as noted in history and below Musculoskeletal Reports: back pain and extremity pain PFSH PFSH Medical History CHF (congestive heart failure) ?I50.9 - Heart failure, unspecified (ICD-10) Cataracts, bilateral ?H26.9 - Unspecified cataract (ICD-10) Low back pain ?M54.50 - Low back pain, unspecified (ICD-10) Hypothyroid ?E03.9 - Hypothyroidism, unspecified (ICD-10) Hypercholesterolemia ?E78.00 - Pure hypercholesterolemia, unspecified (ICD-10) Afib ?I48.91 - Unspecified atrial fibrillation (ICD-10) Surgical History History of total knee arthroplasty ?Z96.659 - Presence of unspecified artificial knee joint (ICD-10) History of hip replacement ?Z96.649 - Presence of unspecified artificial hip joint (ICD-10) Previous back surgery ?Z98.890 - Other specified postprocedural states (ICD-10) History of shoulder surgery ?Z98.890 - Other specified postprocedural states (ICD-10) Meds Home Medications and Allergies Home Medications ?Medication ?Instructions ?Recorded ?Confirmed ?Type acetaminophen 500 mg oral powder 1,000 mg PO BID PRN pain 01/06/23 10/24/23 History packet (Tylenol Extra Strength) allopurinol 300 mg tablet 300 mg PO DAILY 01/06/23 10/24/23 History apixaban 5 mg tablet (Eliquis) 5 mg PO BID 01/06/23 10/24/23 History atorvastatin 40 mg tablet 40 mg PO DAILY 01/06/23 10/24/23 History bumetanide 1 mg tablet 1 mg PO DAILY 01/06/23 10/24/23 History eszopiclone 3 mg tablet 3 mg PO BEDTIME 01/06/23 10/24/23 History levothyroxine 150 mcg capsule 150 mcg PO DAILY 01/06/23 10/24/23 History magnesium oxide 400 mg PO DAILY 01/06/23 10/24/23 History oxycodone-acetaminophen 5 mg-325 1 tab PO BID 01/06/23 10/24/23 History mg tablet (Endocet) potassium chloride 20 mEq 20 meq PO DAILY 01/06/23 10/24/23 History tablet,extended release(part/cryst) pramipexole 0.25 mg tablet 0.25 mg PO DAILY 01/06/23 10/24/23 History (Mirapex) trazodone 50 mg tablet 50 mg PO DAILY 01/06/23 10/24/23 History Allergies Allergy/AdvReac Type Severity Reaction Status Date / Time fentanyl [From Duragesic] Allergy Unknown Agitated Verified 10/24/23 08:32 indomethacin [From Indocin] Allergy Unknown Agitated Verified 10/24/23 08:32 Penicillins Allergy Unknown Rash Verified 10/24/23 08:32 zolpidem [From Ambien] Allergy Agitated Verified 10/24/23 08:32 Exam Constitutional Documenting provider has reviewed patient's vital signs: yes Common normals: no apparent distress, oriented x3, healthy appearing, alert and well nourished General appearance: cooperative [facility] Common normals: normocephalic, hearing grossly normal bilaterally and moist oral mucous membranes Head and scalp: normocephalic Eye Common normals: PERRL Pupil: PERRL Neck & C-Spine Common normals: full ROM General: normal visual inspection Chest Common normals: inspection of chest normal Respiratory Common normals: normal respiratory effort, no retractions and no use of accessory muscles Back & Pelvis Lumbar spine/lower back: ROM limited, pain with ROM and straight leg raise n egative bilaterally Other: mild facet loading altered sensation to LLE following L4,5,S1 pattern strength 4/5 in BLE Extremity Common normals: normal to inspection and full ROM Neuro Common normals: oriented x3, CN's II-XII intact bilaterally, moves all extremities, no focal motor deficits, no sensory deficits noted and deep tendon reflexes 2+ bilaterally Sensorium/orientation: alert Gait (neuro): antalgic and assistive device used cane Motor exam: strength 5/5 throughout and no movement abnormalities noted Psych Common normals: mental status grossly normal, thought process normal, cooperative, affect normal, speech normal and activity/motor behavior normal Speech: normal speech Thought process: normal thought process Results Imaging Lumbar MRI: Attestation: I have reviewed the pertinent imaging results. Radiologist's impression: FINDINGS: There is an exaggerated lumbar lordosis. There is grade 1 spondylolisthesis at L4-5 measuring 5 mm. This is stable. There is grade 1 retrolisthesis at L2-3 measuring 3 mm which is stable. No acute compression fracture. There appears to be some mild bone marrow edema on the left side of the sacrum along the left sacral ala on the STIR images with some hyperintense signal in this location. On the axial T1 images, there is some hypointense signal oriented in a linear fashion along the left sacral ala suspicious for a mild sacral insufficiency fracture on the left side of the sacrum. This is new from the prior. L5-S1, there are postoperative changes from previous laminectomy. The disc space is normal in height. No disc herniation. No spinal canal stenosis. There is mild left foraminal narrowing. L4-5, moderate to severe degenerative disc disease stable. Grade 1 spondylolisthesis stable. There has been a previous laminectomy. There is osseous fusion across the facet joints. There is mild central spinal canal stenosis. Spondylolisthesis and disc space narrowing result in severe foraminal stenosis bilaterally, left greater than right. These findings are stable. This level is unchanged. L3-4, there has been a previous laminectomy at this level. Severe facet arthropathy bilaterally with severe facet hypertrophy. Severe degenerative disc disease. Severe facet hypertrophy results in severe central spinal canal stenosis with severe effacement of the thecal sac. This is stable from the prior. Disc space narrowing and osteophytes result in severe foraminal narrowing bilaterally which is stable. This level is unchanged. L2-3, there has been a previous laminectomy. There is severe degenerative disc disease. Grade 1 retrolisthesis. Severe facet arthropathy. There is severe spinal canal stenosis which appears stable. Severe right foraminal narrowing stable. Moderate left foraminal narrowing stable. L1-2, moderate degenerative disc disease. No spinal stenosis. No foraminal narrowing. No abnormal signal in the conus medullaris. There is clumping of the nerve roots of the cauda equina and the thecal sac from L2-3 through L5-S1. The nerve roots appear somewhat thickened. There are some areas of dark signal on T2-weighted throughout the thecal sac in these areas on the sagittal T2 images. These findings suggest chronic arachnoiditis. The findings are stable. Additional Findings Additional findings: If on a controlled substance or opioids, I have checked an [place]AR[place] report on this patient and there are no aberrancies noted in the prescribing history.??If on a controlled substance or opioid a drug screen was completed and reviewed within the last year, and if there has not been a drug screen completed we ordered one today to monitor higher risk, state monitored pain medication use. As part of providing excellent, safe, comprehensive care, the following was completed at our patient's visit: 1. A medication reconciliation and review to ensure accurate knowledge of current/active medications, including asking our patients to inform us about any urau-uqg-lfebdjc medications or herbal remedies/nutritional supplements/altern ative remedies. 2. A review to specifically ensure our patients have had annual screening for screening for depression, screening for tobacco use, and screening for unhealthy alcohol use. For concerning screenings had a discussion with the patient, provided patient education, and recommended follow-up with primary care provider when appropriate. If patient noted with a risk of falling, they received education on strength, gait, and balance training to prevent future risk of falling. 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 patient educated on spinal cord stimulator trial, is not interested at this time. He would like to meet with NS first to discuss surgical interventions. Patient has spinal cord stimulator handout and will look into this fuher with his daughter. declining gabapentin or other non-opioid medications for chronic pain at this time continue current medications, sparingly utilizing percocet without side effects and reports significant pain relief for 6 hours however he does not like to take an opioid medication avoid NSAIDs, on eliquis f/u after NS consult
== END 2023-11-02 08:42 | disposition home or self-care (01) ==
LOC: PM 08:42
PROVIDERS: Visit Provider Nurse Practitioner
DX: M48.062 Spinal stenosis, lumbar region with neurogenic claudication (principal); M54.16 Radiculopathy, lumbar region; M47.816 Spondylosis without myelopathy or radiculopathy, lumbar region; M96.1 Postlaminectomy syndrome, 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; Z79.01 Long term (current) use of anticoagulants
CPT/HCPCS: G0463

== ENCOUNTER 2023-12-08 08:59 | Outpatient (OUT) | payer MEDICARE, BC, SELFPAY ==
--- NOTE | 2023-12-08 09:31 | PM.CN ---
Consult Note: HPI Data of Consult Patient: known to practice within the last 3 years Requesting Physician: Silvia Kimble NP Primary Care Provider: Non-Staff Physician, MD Consult Narrative Reason for consult: f/u Narrative: Irineo Mendes a pleasant 82 year old male presents for evaluation and management of chronic low back pain. Pain today 4/10 in low back, dull heavy ache, with increasing numbness tingling and weakness of legs. Hx of lumbar stenosis with NC, updated lumbar MRI as noted below. Patient has failed to benefit from greater than 6 weeks PT/HEP. Finds moderate benefit to tylenol and percocet without side effects however he does not like to take percocet, cannot take NSAIDs on eliquis. Axial low back pain improved from prior lumbar RFAs but continues to report heaviness numbness tingling BLE. bilateral L3-4 TFESI followed by bilateral L4-5 TFESI failed to provide any improvement per pt. Patient and his daughter met with Dr Collier for evaluation, he has a scheduled lumbar decompression and fusion end of February however patient is not sure if hes going to go through with it, he is concerned with recovery and driving to [place] for his surgery. cc:: CC: Silvia Kimble NP Review of Systems ROS Status of ROS 10 or more systems reviewed and unremarkable except as noted in history and below Musculoskeletal Reports: back pain and extremity pain PFSH PFSH Medical History CHF (congestive heart failure) ?I50.9 - Heart failure, unspecified (ICD-10) Cataracts, bilateral ?H26.9 - Unspecified cataract (ICD-10) Low back pain ?M54.50 - Low back pain, unspecified (ICD-10) Hypothyroid ?E03.9 - Hypothyroidism, unspecified (ICD-10) Hypercholesterolemia ?E78.00 - Pure hypercholesterolemia, unspecified (ICD-10) Afib ?I48.91 - Unspecified atrial fibrillation (ICD-10) Surgical History History of total knee arthroplasty ?Z96.659 - Presence of unspecified artificial knee joint (ICD-10) History of hip replacement ?Z96.649 - Presence of unspecified artificial hip joint (ICD-10) Previous back surgery ?Z98.890 - Other specified postprocedural states (ICD-10) History of shoulder surgery ?Z98.890 - Other specified postprocedural states (ICD-10) Meds Home Medications and Allergies Home Medications ?Medication ?Instructions ?Recorded ?Confirmed ?Type acetaminophen 500 mg oral powder 1,000 mg PO BID PRN pain 01/06/23 10/24/23 History packet (Tylenol Extra Strength) allopurinol 300 mg tablet 300 mg PO DAILY 01/06/23 10/24/23 History apixaban 5 mg tablet (Eliquis) 5 mg PO BID 01/06/23 10/24/23 History atorvastatin 40 mg tablet 40 mg PO DAILY 01/06/23 10/24/23 History bumetanide 1 mg tablet 1 mg PO DAILY 01/06/23 10/24/23 History eszopiclone 3 mg tablet 3 mg PO BEDTIME 01/06/23 10/24/23 History levothyroxine 150 mcg capsule 150 mcg PO DAILY 01/06/23 10/24/23 History magnesium oxide 400 mg PO DAILY 01/06/23 10/24/23 History oxycodone-acetaminophen 5 mg-325 1 tab PO BID 01/06/23 10/24/23 History mg tablet (Endocet) potassium chloride 20 mEq 20 meq PO DAILY 01/06/23 10/24/23 History tablet,extended release(part/cryst) pramipexole 0.25 mg tablet 0.25 mg PO DAILY 01/06/23 10/24/23 History (Mirapex) trazodone 50 mg tablet 50 mg PO DAILY 01/06/23 10/24/23 History Allergies Allergy/AdvReac Type Severity Reaction Status Date / Time fentanyl [From Duragesic] Allergy Unknown Agitated Verified 10/24/23 08:32 indomethacin [From Indocin] Allergy Unknown Agitated Verified 10/24/23 08:32 Penicillins Allergy Unknown Rash Verified 10/24/23 08:32 zolpidem [From Ambien] Allergy Agitated Verified 10/24/23 08:32 Exam Constitutional Documenting provider has reviewed patient's vital signs: yes Common normals: no apparent distress, oriented x3, healthy appearing, alert and well nourished General appearance: cooperative [facility]EN[facility] Common normals: normocephalic, hearing grossly normal bilaterally and moist oral mucous membranes Head and scalp: normocephalic Eye Common normals: PERRL Pupil: PERRL Neck & C-Spine Common normals: full ROM General: normal visual inspection Chest Common normals: inspection of chest normal Respiratory Common normals: normal respiratory effort, no retractions and no use of accessory muscles Back & Pelvis Lumbar spine/lower back: ROM limited, pain with ROM and straight leg raise negative bilaterally Other: mild facet loading altered sensation to LLE following L4,5,S1 pattern strength 4/5 in BLE Extremity Common normals: normal to inspection and full ROM Neuro Common normals: oriented x3, CN's II-XII intact bilaterally, moves all extremities, no focal motor deficits, no sensory deficits noted and deep tendon reflexes 2+ bilaterally Sensorium/orientation: alert Gait (neuro): antalgic and assistive device used cane Motor exam: strength 5/5 throughout and no movement abnormalities noted Psych Common normals: mental status grossly normal, thought process normal, cooperative, affect normal, speech normal and activity/motor behavior normal Speech: normal speech Thought process: normal thought process Results Additional Findings Additional findings: If on a controlled substance or opioids, I have checked an OARRS report on this patient and there are no aberrancies noted in the prescribing history.??If on a controlled substance or opioid a drug screen was completed and reviewed within the last year, and if there has not been a drug screen completed we ordered one today to monitor higher risk, state monitored pain medication use. As part of providing excellent, safe, comprehensive care, the following was completed at our patient's visit: 1. A medication reconciliation and review to ensure accurate knowledge of current/active medications, including asking our patients to inform us about any cpqt-zag-ccydoif medications or herbal remedies/nutritional supplements/alternative remedies. 2. A review to specifically ensure our patients have had annual screening for screening for depression, screening for tobacco use, and screening for unhealthy alcohol use. For concerning screenings had a discussion with the patient, provided patient education, and recommended follow-up with primary care provider when appropriate. If patient noted with a risk of falling, they received education on strength, gait, and balance training to prevent future risk of falling. 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 continue f/u with NS declining gabapentin or other non-opioid medications for chronic pain at this time continue current medications, sparingly utilizing percocet without side effects and reports significant pain relief for 6 hours however he does not like to take an opioid medication avoid NSAIDs, on eliquis f/u 3 months, sooner if needed
== END 2023-12-08 09:00 | disposition home or self-care (01) ==
LOC: PM 08:59
PROVIDERS: Visit Provider Nurse Practitioner
DX: M48.062 Spinal stenosis, lumbar region with neurogenic claudication (principal); M47.26 Other spondylosis with radiculopathy, lumbar region; Z79.01 Long term (current) use of anticoagulants; M96.1 Postlaminectomy syndrome, 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
CPT/HCPCS: G0463

== ENCOUNTER 2024-02-14 08:28 | Outpatient (OUT) | payer MEDICARE, BC, SELFPAY ==
[2024-02-14 09:03] LABS: Basophils Percent Auto 0.7 % (0.2-2.0); Eosinophils Absolute Auto 0.2 10^3/uL (0.0-0.7); Eosinophils Percent Auto 3.9 % (0.9-7.0); Hematocrit 35.5 % (42.0-54.0); Hemoglobin 11.5 g/dL (14.0-18.0); Immature Granulocytes Abs Auto 0.01 10^3/uL (0.00-0.03); Immature Granulocytes Pct Auto 0.2 % (0.0-0.5); Lymphocytes Absolute Auto 0.9 10^3/uL (1.2-3.8); Lymphocytes Percent Auto 16.8 % (20.5-60.0); Mean Corpuscular HGB Conc 32.4 g/dL (29.9-35.2); Mean Corpuscular Hemoglobin 34.7 pg (25.9-34.0); Mean Corpuscular Volume 107.3 fL (80.0-94.0); Mean Platelet Volume 9.6 fL (9.5-13.5); Monocytes Absolute Auto 0.6 10^3/uL (0.3-0.8); Monocytes Percent Auto 10.9 % (1.7-12.0); Neutrophils Absolute Auto 3.7 10^3/uL (1.4-6.5); Neutrophils Percent Auto 67.5 % (43.0-75.0); Platelet Count 209 10^3/uL (150-450); Red Blood Count 3.31 10^6/uL (4.70-6.10); Red Cell Distribution Width 14.8 % (11.0-15.0); White Blood Count 5.4 10^3/uL (4.0-11.0)
--- NOTE | 2024-02-14 09:07 | XR_ITS ---
The [address] [address] Patient Name: TAVO WALLIS MRN: [id number] date: 1940 Sex: M Assigned Patient Location: LAB Current Patient Location: Accession/Order Number: [id number] Exam Date: 02/14/2024 09:20 Report Date: 02/15/2024 06:54 At the request of: SHRUTI HALL Procedure: XR chest 2V EXAMINATION: XR chest 2V HISTORY: Pre Operative Evaluation Z01.812, Half-Way Medication Use COMPARISON: XR chest 06/05/2018 FINDINGS: LUNGS: Opacities within lung bases obscuring the diaphragm margins and left heart margin. VASCULATURE: No increased pulmonary vasculature. PLEURA: Blunting of costophrenic angles bilaterally compatible with pleural fluid. CARDIAC: No cardiomegaly or cardiac silhouette abnormality. MEDIASTINUM: No visible mass or adenopathy. BONES: Bone anchors within right humeral head. OTHER: Negative. XR/XR chest 2V IMPRESSION: 1. Moderate bilateral pleural effusions, left greater than right. 2. Mild/moderate bibasilar atelectasis versus infiltrates. 3. Findings are new, but the most recent comparison study is 2019. Electronically authenticated by: AMIE LYMAN Date: 02/15/2024 06:54
[2024-02-14 09:10] LABS: Anion Gap 12.1; Calcium 9.2 mg/dL (8.5-10.1); Carbon Dioxide 28.1 mmol/L (21.0-32.0); Chloride 108 mmol/L (98-107); Estimated GFR (African America 56 (>=60 mL/min/1.73m^2); Estimated GFR (Non-African Ame 46 (>=60 mL/min/1.73m^2); Glucose 101 mg/dL (74-106); Potassium 4.2 mmol/L (3.5-5.1); Sodium 144 mmol/L (136-145)
[2024-02-14 09:26] LABS: INR 1.25; Partial Thromboplastin Time 37.3 sec (22.3-36.2)
--- NOTE | 2024-02-14 09:32 | ECG_ITS ---
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 [employer]: : 1940 Requested By: Feliciano Ambrosio Order Number: [id number] Reading MD: TIFFANIE CHRISTIANSON Measurements Intervals [place] Rate: 140 P: DC: QRS: -3 QRSD: 89 T: 0 QT: 295 QTc: 450 Interpretive Statements ATRIAL FIBRILLATION WITH RAPID VENTRICULAR RESPONSE WITH ABERRANT CONDUCTION OR VENTRICULAR PREMATURE COMPLEXES NONSPECIFIC T-WAVE ABNORMALITY ABNORMAL RHYTHM ECG Compared to ECG 03/13/2019 08:45:46 Ventricular premature complex(es) now present Aberrant conduction of supraventricular beat(s) now present T-wave abnormality now present Electronically Signed On 02-16-2024 8:02:10 EST by TIFFANIE CHRISTIANSON
--- NOTE | 2024-02-14 10:06 | RESP.RT ---
Outpatient EKG completed- abnormal results called to Ania Gilmore RN ([facility]/Dr. Randi Man) and then to No Walden LPN (Cardiology/Dr. Mcintyre). No stated that pt was ok to leave [facility] Cardiopulmonary department.
== END 2024-02-14 08:29 | disposition home or self-care (01) ==
LOC: LAB 08:34
PROVIDERS: PCP Family Medicine; Visit Provider Orthopaedic Surgery Orthopaedic Surgery of the Spine
DX: Z01.812 Encounter for preprocedural laboratory examination (principal); Z79.01 Long term (current) use of anticoagulants; J90 Pleural effusion, 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
CPT/HCPCS: 36415; 71046; 80048; 85025; 85610; 85730; 87081; 93005

== ENCOUNTER 2024-04-13 13:08 | Inpatient (IN) | payer MEDICARE, BC, SELFPAY ==
[2024-04-13] VITALS (9 sets, daily range): BP systolic 101–148; BP diastolic 62–84; PULSE 61–80; TEMP 36.2–36.7; O2SAT 91–97; BMI 27.4; BMI 38.1; BMI 29.9
--- NOTE | 2024-04-13 09:00 | ECG_ITS ---
[facility] Test Date: 2024-04-13 Pat Name: TAVO WALLIS Department: Room: - Gender: Male Tier Over: : 1940 Requested By: [id number] Order Number: [id number] Reading MD: MARCIE LINARES Measurements Intervals Arrey Rate: 70 P: FL: QRS: -13 QRSD: 98 T: 31 QT: 383 QTc: 414 Interpretive Statements ATRIAL FIBRILLATION INDETERMINATE AXIS NONSPECIFIC T-WAVE ABNORMALITY ABNORMAL RHYTHM ECG Electronically Signed On 04-13-2024 17:01:08 EST by MARCIE LINARES
[2024-04-13 09:54] LABS: Basophils Percent Auto 0.6 % (0.2-2.0); Eosinophils Absolute Auto 0.4 10^3/uL (0.0-0.7); Eosinophils Percent Auto 6.4 % (0.9-7.0); Hematocrit 26.5 % (42.0-54.0); Hemoglobin 8.5 g/dL (14.0-18.0); Immature Granulocytes Abs Auto 0.02 10^3/uL (0.00-0.03); Immature Granulocytes Pct Auto 0.3 % (0.0-0.5); Lymphocytes Absolute Auto 2.3 10^3/uL (1.2-3.8); Lymphocytes Percent Auto 35.3 % (20.5-60.0); Mean Corpuscular HGB Conc 32.1 g/dL (29.9-35.2); Mean Corpuscular Hemoglobin 31.6 pg (25.9-34.0); Mean Corpuscular Volume 98.5 fL (80.0-94.0); Mean Platelet Volume 9.8 fL (9.5-13.5); Monocytes Absolute Auto 0.5 10^3/uL (0.3-0.8); Monocytes Percent Auto 7.8 % (1.7-12.0); Neutrophils Absolute Auto 3.2 10^3/uL (1.4-6.5); Neutrophils Percent Auto 49.6 % (43.0-75.0); Platelet Count 202 10^3/uL (150-450); Red Blood Count 2.69 10^6/uL (4.70-6.10); Red Cell Distribution Width 14.6 % (11.0-15.0); White Blood Count 6.4 10^3/uL (4.0-11.0)
--- NOTE | 2024-04-13 09:58 | XR_ITS ---
[address] [address] Patient Name: TAVO WALLIS MRN: [id number] date: 1940 Sex: M Assigned Patient Location: [facility] Current Patient Location: [facility] Accession/Order Number: [id number] Exam Date: 04/13/2024 09:50 Report Date: 04/13/2024 10:25 At the request of: GABINO WATKINS Procedure: XR chest 1V EXAM: XR chest 1V HISTORY: preop COMPARISON: None. XR/XR chest 1V IMPRESSION: 1. Mildly enlarged cardiac mediastinal silhouette 2. Bilateral hyperinflation may represent chronic obstructive pulmonary disease. 3. Minimal bibasilar atelectasis. No other superimposed acute pulmonary process. . Electronically authenticated by: RONALD ISRAEL Date: 04/13/2024 10:25
[2024-04-13 10:09] LABS: INR 1.14; Prothrombin Time 11.9 sec (9.0-11.6)
[2024-04-13 10:51] LABS: Alanine Aminotransferase 10 U/L (16-63); Albumin Globulin Ratio 0.6; Albumin Level 2.5 g/dL (3.4-5.0); Alkaline Phosphatase 118 U/L (46-116); Aspartate Amino Transferase 25 U/L (15-37); Bilirubin Total 0.5 mg/dL (0.2-1.0); Calcium 8.9 mg/dL (8.5-10.1); Carbon Dioxide 31.5 mmol/L (21.0-32.0); Chloride 99 mmol/L (98-107); Estimated GFR (African America 50 (>=60 mL/min/1.73m^2); Estimated GFR (Non-African Ame 41 (>=60 mL/min/1.73m^2); Globulin 4.4 g/dL; Glucose 80 mg/dL (74-106); Potassium 4.5 mmol/L (3.5-5.1); Sodium 137 mmol/L (136-145); Total Protein 6.9 g/dL (6.4-8.2)
--- NOTE | 2024-04-13 11:00 | PC.NURSE ---
Reported critical BNP to Dr. Darnell at this time.
[2024-04-13] MEDS: LACTATED RINGER'S SOLUTION 1,000 ML 50 ML IV (11:29)
--- NOTE | 2024-04-13 12:14 | PC.NURSE ---
1200- Dr. Man at bedside and talks with patient and patient daughter. Dr. Man reviews lab and test results. Dr. Man to delay surgery until lab results have improved and swelling to lower extremities have decreased. Patient and patients daughter state a understanding.
--- NOTE | 2024-04-13 14:13 | CA_ITS ---
Patient Name: TAVO WALLIS MR#: [id number] : 1940 Exam Date: 04/13/2024 Ordering Doctor: ESTER WATKINS . ECHOCARDIOGRAM REPORT PROCEDURE: CA ECHO LIMITED INDICATIONS: acute on chronic CHF, atrial fibrillation, presurg testing COMPARISON: None. DESCRIPTION: Limited ECHOCARDIOGRAM Real-time transthoracic echocardiography with 2D and M-mode performed. QUALITY: Technical quality was good. Limited echocardiogram per physician order. LEFT VENTRICLE: Normal chamber size. Mild proximal septal hypertrophy (sigmoid septum). LV EF: Mildly reduced left ventricular ejection fraction, (45-50%).Mild global hypokinesis DIASTOLIC: was not evaluated ATRIAL SEPTUM: Visually appears intact LEFT ATRIUM: Severe dilatation. RIGHT ATRIUM: Moderate dilatation. RIGHT VENTRICLE: Mild dilatation. Mildly reduced systolic function TRICUSPID VALVE: Normal mobility and thickness. MITRAL VALVE: Normal mobility and thickness. There is no mitral annular calcification. AORTIC VALVE: Normal trileaflet appearance. Thickened aortic valve. Normal leaflet mobility. AORTIC ROOT: Normal diameter and appearance. Ascending aorta is normal in size PULMONIC VALVE: Normal thickness and mobility. PERICARDIUM: No evidence of pericardial effusion. IVC: Not well visualized. PLEURA: CONCLUSION: Limited 2D echocardiographic study Mildly reduced left ventricle systolic function and global function, ejection fraction 45 to 50% Mild proximal septal hypertrophy Severely dilated left atrium and moderately dilated right atrium Mildly dilated right ventricle with mild reduction in systolic function Patient was in atrial fibrillation during the test Adult Echocardiography Procedure Report Left Ventricle LVEDD (3.7 - 5.6 cm): 4.84 cm LVESD (2.2 - 4.0 cm): 3.59 cm LVIVS thickness (0.6 - 1.2 cm): 1.37 cm LVPW thickness (0.5 - 1.0 cm): 0.84 cm e': E - e': LVOT Max Gradient: LVOT Area (cm2): Peak Velocity (LVOT): Mean Velocity (LVOT): LVOT Diameter 2.33 cm Left Ventricular Ejection Fraction: Left Atrium LA Volume Index (2D A2C): 56.03 ml/m2 Left Atrium Systolic Dimension: 5.23 cm Mitral Valve MV E to A Ratio: MV Max Gradient: MV Mean Gradient: Mitral Valve A-Wave Peak Velocity: Mitral Valve E-Wave Peak Velocity: Cardiovascular Orifice Area: Right Ventricle RV Internal Diastolic Dimension: Aorta AO Root Diam: 3.79 cm Ascending Ao Diam: 2.99 cm Aortic Valve AoV Area (Peak Bib): AoV Area (VTI): Deceleration Frio: Pressure Half-Time: Peak Velocity(Antegrade Flow): Peak Gradient(Antegrade Flow): Mean Velocity(Antegrade Flow): Mean Gradient(Antegrade Flow): Velocity Time Integral: Tricuspid Valve Peak Velocity (Regurgitant Flow): Peak Velocity: Pulmonic Valve Mean Gradient: Mean Velocity: Peak Velocity: Peak Gradient: Right Atrium Right Atrium Systolic Pressure: 57.27 ml, 57.27 ml Dictated by: Sade Vega MD on 04/13/2024 at 16:56 Approved by: Sade Vega MD on 04/13/2024 at 17:01
--- NOTE | 2024-04-13 15:10 | CM.NOTE ---
Discussed status with Dr. Darnell, Dr. Darnell has call out to Dr. Perrin for surgical plan moving forward.
--- NOTE | 2024-04-13 16:06 | PM.HP ---
HPI H&P: HPI History of Present Illness Chief complaint: IDP WOUND CLEAN Narrative: Patient is a 83 y.o white male with extensive past medical history of insomnia, hypothyroidism, Hypertension, Afib (takes eliquis), Venoius insufficiency, Gout, CKD uncertain stage, with chronic urinary retention with indwelling wellington catheter, Chronic CHF uncertain type who presented to the hospital today for an I&D of the lumbar spine. Patient had a Lumbar fusion/decompression in february 21 2024 at [facility] in [place] by Dr. Burris. Per his daughter he had post operative complications including acute CHF after surgery and was admitted for awhile post operatively. He was transferred to [facility] in [place] where he has resided since. His course there has been complicated by acute urinary retention and acute CHF, acute renal failure x 7 days which led to diuresis and indwelling wellington at [facility]. He was seen on 03/23/24 in the spine clinic for evaluation and concern of surgical site drainage and wound complication. MRI was ordered, imaging demonstrated a fluid collection. The plan was for I&D today but when patient arrived to PACU, he was found to be edematous, +3 pitting edema bilateral lower ext, Elevated ProBNP 2800 and Acute on chronic renal failure with acute exacerbation of his CHF. It was deemed by anesthesia to not proceed with surgery given patient's acuteness of symptoms, and for [facility] to not be a tertiary care center having ICU services and cardiology services readily available. There has been no surgery clearance in the medical records since 02/13/24 which was prior to his first surgery. I have reviewed Dr. Spencer's medical clearance from 02/13/24. Daughter reports he sees Dr. Mcintyre at [facility] in [place], his preop clearance note was reviewed from 02/16/24 which noted EF 50% on echo. Post op on 02/23/24 Echo was EF was 35-40%. I have ordered a limited echo to compare and check for stability of his EF. He has pitting edema with elevated proBNP today. I will start him on IV bumex 2mg BID. Even with diuresis and optimization of his CHF symptoms, Given his CHF and complex nature of diseases (afib, LIS), I feel he would be best suited to have surgical I&D at larger facility that has cardiology services, nephrology services, and possible ICU care given patient's high risk of decompensation. I think what's best for patient would be treating his acute CHF and possible Transferring to [facility] for the I&D if Dr. Burris wishes to precede with his care. I also recommend getting appropriate surgical clearance prior to a surgical procedure when the patient has been hospitalized at least once since original surgery and has been >30 days. Patient denies any chest pain, Shortness of breath, but states his legs have been swelling making it uncomfortable to try to walk. Opioid HPI Opioid Management Most Recent Pain and Opioid Data: Last Pain Scale 6 04/13/24 14:00 04/13/24 Last Pain Assessment 04/13/24 15:58 Last ORT Total Score 11 04/13/24 13:19 04/13/24 Last ORT Risk Category High Risk 04/13/24 13:19 04/13/24 Review of Systems ROS Narrative ROS: a complete review of systems were reviewed with patient and are positive as below or listed in History of Chief Complaint. General: no fever, chills, night sweats Head: no headache, trauma, visual changes, nausea or vomiting Skin: no reported rashes, itching or sores Eyes: no blurriness of vision Ears: no reported hearing loss, vertigo, earache, or tinnitus Throat: no sore throat, hoarseness, swelling of neck, or tongue pain Heart: no chest pain Lungs: no shortness of breath or cough GI: no diarrhea or vomiting/nausea Urinary: wellington, no issues Neuro: no numbness or tingling HEM: no bleeding issues or bruising ENDO: thyroid problems Psych: no anxiety or depression [facility] Medical History (Updated 04/13/24 @ 16:46 by Joy Darnell DO) 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 - Diverticulum of esophagus, acquired (ICD-10) Encounter for screening colonoscopy ?Z12.11 - Encounter for screening for malignant neoplasm of colon (ICD-10) Sleep apnea ?G47.30 - Sleep apnea, unspecified (ICD-10) Gastric ulcer ?K25.9 - Gastric ulcer, unspecified as acute or chronic, without hemorrhage or perforation (ICD-10) DJD (degenerative joint disease) ?M19.90 - Unspecified osteoarthritis, unspecified site (ICD-10) Dehydration ?E86.0 - Dehydration (ICD-10) Altered mental state ?R41.82 - Altered mental status, unspecified (ICD-10) Falls ?R29.6 - Repeated falls (ICD-10) Bladder retention ?R33.9 - Retention of urine, unspecified (ICD-10) Constipation ?K59.00 - Constipation, unspecified (ICD-10) Pleural effusion ?J90 - Pleural effusion, 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 (ICD-10) Bakers cyst ?M71.20 - Synovial cyst of popliteal space [[place]], unspecified knee (ICD-10) Cardiomyopathy ?I42.9 - Cardiomyopathy, unspecified (ICD-10) Cellulitis ?L03.90 - Cellulitis, unspecified (ICD-10) Gout ?M10.9 - Gout, unspecified (ICD-10) Meningioma, spinal ?D32.1 - Benign neoplasm of spinal meninges (ICD-10) Tinnitus ?H93.19 - Tinnitus, unspecified ear (ICD-10) BPH (benign prostatic hyperplasia) ?N40.0 - Benign prostatic hyperplasia without lower urinary tract symptoms (ICD-10) Insomnia ?G47.00 - Insomnia, unspecified (ICD-10) PVD (peripheral vascular disease) ?I73.9 - Peripheral vascular disease, unspecified (ICD-10) CHF (congestive heart failure) ?I50.9 - Heart failure, unspecified (ICD-10) Cataracts, bilateral ?H26.9 - Unspecified cataract (ICD-10) Low back pain ?M54.50 - Low back pain, unspecified (ICD-10) Hypothyroid ?E03.9 - Hypothyroidism, unspecified (ICD-10) Hypercholesterolemia ?E78.00 - Pure hypercholesterolemia, unspecified (ICD-10) Afib ?I48.91 - Unspecified atrial fibrillation (ICD-10) Surgical History (Updated 04/13/24 @ 10:32 by Yoli High RN) H/O lithotripsy ?Z98.890 - Other specified postprocedural states (ICD-10) H/O laminectomy ?Z98.890 - Other specified postprocedural states (ICD-10) H/O sinus surgery ?Z98.890 - Other specified postprocedural states (ICD-10) History of back surgery ?Z98.890 - Other specified postprocedural states (ICD-10) History of esophagogastroduodenoscopy (EGD) ?Z98.890 - Other specified postprocedural states (ICD-10) History of total knee arthroplasty ?Z96.659 - Presence of unspecified artificial knee joint (ICD-10) History of hip replacement ?Z96.649 - Presence of unspecified artificial hip joint (ICD-10) Previous back surgery ?Z98.890 - Other specified postprocedural states (ICD-10) History of shoulder surgery ?Z98.890 - Other specified postprocedural states (ICD-10) Family History (Updated 04/13/24 @ 10:34 by Yoli High, MARK) Other Alzheimers disease Cirrhosis Family history of cancer Family history of diabetes mellitus Family history of hypertension Family history of myocardial infarction Heart disease Social History (Updated 04/13/24 @ 10:36 by Yoli High RN) Within the past year, how often did you have a drink containing alcohol: 4 or more times a week Smoking status: Former smoker Second hand tobacco smoke exposure: Yes Non-prescribed substance use: denies use Previous occupational history: Retired- [employer] Highest level of school completed/degree received: high school graduate Little interest or pleasure in doing things: not at all Feeling down, depressed, or hopeless: not at all Meds Home Medications and Allergies Home Medications ?Medication ?Instructions ?Recorded ?Confirmed ?Type acetaminophen 500 mg oral powder 1,000 mg PO BID PRN pain 01/06/23 04/13/24 History packet (Tylenol Extra Strength) allopurinol 300 mg tablet 300 mg PO DAILY 01/06/23 04/13/24 History apixaban 5 mg tablet (Eliquis) 5 mg PO BID 01/06/23 04/13/24 History atorvastatin 40 mg tablet 40 mg PO DAILY 01/06/23 04/13/24 History bumetanide 1 mg tablet 1 mg PO DAILY 01/06/23 04/13/24 History eszopiclone 3 mg tablet 3 mg PO BEDTIME 01/06/23 04/13/24 History magnesium oxide 400 mg PO DAILY 01/06/23 10/24/23 History potassium chloride 20 mEq 20 meq PO DAILY 01/06/23 04/13/24 History tablet,extended release(part/cryst) trazodone 50 mg tablet 50 mg PO DAILY PRN insomnia 01/06/23 04/13/24 History carvedilol 6.25 mg tablet 6.25 mg PO BID 04/13/24 04/13/24 History levothyroxine 150 mcg tablet 150 mcg PO .qd 04/13/24 04/13/24 History magnesium oxide 400 mg (241.3 mg 400 mg PO .qd 04/13/24 04/13/24 History magnesium) tablet Allergies Allergy/AdvReac Type Severity Reaction Status Date / Time fentanyl (From Duragesic) Allergy Unknown Agitated Verified 10/24/23 08:32 indomethacin (From Indocin) Allergy Unknown Agitated Verified 10/24/23 08:32 Penicillins Allergy Unknown Rash Verified 10/24/23 08:32 zolpidem (From Ambien) Allergy Agitated Verified 10/24/23 08:32 Exam Narrative Exam Narrative: General: Patient is alert, and oriented to person, place and time with normal affect, proper hygiene Skin: multiple ecchymosis over arms, please see uploaded picture to the chart of back incision with erythema Head: atraumatic, acephalic Eyes: PERRLA, no nystagmus present, conjunctiva clear, no scleral icterus Ears: normal gross auditory acuity Nose: symmetric, no discharge, no maxillary or frontal sinus tenderness Neck: no masses palpated, normal thyroid, no JVD or audible carotid bruits Heart: irregular rhythm, normal rate no murmurs/rubs/gallops Lungs: no audible wheezes, crackles and normal breath sounds all lung reyes Abdomen: Normal audible bowel sounds, no distension, No palpable masses, no organomegaly, no rebound/guarding/ or rigidity Musculoskeletal: 3+ pitting, swelling bilateral lower extremities Neuro: CN II-X grossly intact Constitutional Vital Signs, click to edit/add: Last Vital Signs Temp 98.1 F 04/13/24 13:19 Pulse 73 04/13/24 15:51 Resp 20 04/13/24 13:19 BP 101/62 04/13/24 13:19 Pulse Ox 94 L 04/13/24 13:19 O2 Del Method Room Air 04/13/24 13:19 Results Labs Labs: Short CBC 04/13/24 Range/Units 09:51 WBC 6.4 (4.0-11.0) 10^3/uL Hgb 8.5 L (14.0-18.0) g/dL Hct 26.5 L (42.0-54.0) % Plt Count 202 (150-450) 10^3/uL BMP 04/13/24 09:51 Sodium 137 Potassium 4.5 Chloride 99 Carbon Dioxide 31.5 BUN 21.0 H Creatinine 1.62 H Glucose 80 Calcium 8.9 Liver Function 04/13/24 Range/Units 09:51 Total Bilirubin 0.5 (0.2-1.0) mg/dL AST 25 (15-37) U/L ALT 10 L (16-63) U/L Alkaline Phosphatase 118 H (46-116) U/L Albumin 2.5 L (3.4-5.0) g/dL Assessment and Plan Assessment and Plan (1) Acute on chronic diastolic CHF (congestive heart failure): Assessment and Plan: elevated proBNP, monitor renal function and electrolytes. Diurese with Bumex 2mg IV BID. Echocardiogram today. (2) Acute on chronic renal failure: Assessment and Plan: Cr 1.62, BUN 21 GFR 41, unknown baseline. Qualifiers: Acute renal failure type: unspecified Chronic kidney disease stage: unspecified stage Qualified Code(s): N17.9 - Acute kidney failure, unspecified; N18.9 - Chronic kidney disease, unspecified (3) Afib: Assessment and Plan: Rate controlled with coreg. Hold eliquis for possible surgery, treat with Heparin. Qualifiers: Atrial fibrillation type: longstanding persistent Qualified Code(s): I48.11 - Longstanding persistent atrial fibrillation (4) Hypercholesterolemia: Assessment and Plan: continue atorvastatin (5) Hypothyroid: Assessment and Plan: continue levothyroxine Qualifiers: Hypothyroidism type: acquired Qualified Code(s): E03.9 - Hypothyroidism, unspecified (6) PVD (peripheral vascular disease): Assessment and Plan: continue SCD's (7) Insomnia: Assessment and Plan: continue home lunesta Qualifiers: Insomnia type: primary Qualified Code(s): 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 (8) BPH (benign prostatic hyperplasia): Assessment and Plan: indwelling wellington Qualifiers: Lower urinary tract symptom presence: symptoms present Lower urinary tract symptom detail: unspecified Qualified Code(s): N40.1 - Benign prostatic hyperplasia with lower urinary tract symptoms (9) Gout: Assessment and Plan: continue allopurinol Qualifiers: Gout site: unspecified site Gout etiology: unspecified cause Chronicity: unspecified Qualified Code(s): M10.9 - Gout, unspecified (10) Bladder retention: Assessment and Plan: has indwelling wellington (11) Fluid collection at surgical site: Assessment and Plan: WBC's normal, patient is afebrile. When i discussed with Dr. Burris he did not think he needed antibiotics at this time. Monitor site. Pain control. picture uploaded to chart. monitor for change in status Qualifiers: Encounter type: initial encounter Qualified Code(s): T88.8XXA - Other specified complications of surgical and medical care, 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, initial encounter Plan Patient is a full code Heparin for DVT prophylaxis Patient is inpatient and is expected to cross 2 midnights for hospital necessary care. Urinary Catheter Management Urinary Catheter Management Urethral: Cath placed during this visit: no
[2024-04-13] MEDS: BUMETANIDE 1 MG/4 ML VIAL 2 MG IVP (16:41)
[2024-04-13] MEDS: OXYCODONE HCL/ACETAMINOPHEN 5MG/325MG 1 TAB PO (17:30)
[2024-04-13] MEDS: ACETAMINOPHEN 500 MG TABLET 1000 MG PO (22:06)
[2024-04-13] MEDS: CARVEDILOL 6.25 MG TABLET PO (22:07)
[2024-04-13] MEDS: ESZOPICLONE 3 MG 3 EACH PO (22:08)
[2024-04-14] VITALS (16 sets, daily range): BP systolic 104–120; BP diastolic 61–69; PULSE 54–87; TEMP 36.6–36.7; O2SAT 92–97
[2024-04-14] MEDS: LEVOTHYROXINE SODIUM 75 MCG TABLET 150 MCG PO (05:47)
[2024-04-14] MEDS: BUMETANIDE 1 MG/4 ML VIAL 2 MG IVP ×2 (05:52→16:47)
[2024-04-14 06:24] LABS: Basophils Absolute Auto 0.1 10^3/uL (0.0-0.1); Basophils Percent Auto 0.9 % (0.2-2.0); Eosinophils Absolute Auto 0.4 10^3/uL (0.0-0.7); Eosinophils Percent Auto 6.7 % (0.9-7.0); Hematocrit 24.2 % (42.0-54.0); Hemoglobin 7.9 g/dL (14.0-18.0); Immature Granulocytes Abs Auto 0.02 10^3/uL (0.00-0.03); Immature Granulocytes Pct Auto 0.3 % (0.0-0.5); Lymphocytes Absolute Auto 2.3 10^3/uL (1.2-3.8); Lymphocytes Percent Auto 39.1 % (20.5-60.0); Mean Corpuscular HGB Conc 32.6 g/dL (29.9-35.2); Mean Corpuscular Hemoglobin 31.9 pg (25.9-34.0); Mean Corpuscular Volume 97.6 fL (80.0-94.0); Mean Platelet Volume 8.9 fL (9.5-13.5); Monocytes Absolute Auto 0.4 10^3/uL (0.3-0.8); Monocytes Percent Auto 6.4 % (1.7-12.0); Neutrophils Absolute Auto 2.7 10^3/uL (1.4-6.5); Neutrophils Percent Auto 46.6 % (43.0-75.0); Platelet Count 207 10^3/uL (150-450); Red Blood Count 2.48 10^6/uL (4.70-6.10); Red Cell Distribution Width 14.5 % (11.0-15.0); White Blood Count 5.8 10^3/uL (4.0-11.0)
[2024-04-14 06:49] LABS: Potassium 3.6 mmol/L (3.5-5.1); Sodium 138 mmol/L (136-145)
[2024-04-14 06:50] LABS: Alanine Aminotransferase 8 U/L (16-63); Alkaline Phosphatase 104 U/L (46-116); Anion Gap 11.9; Aspartate Amino Transferase 18 U/L (15-37); BUN Creatinine Ratio 15.4; Bilirubin Total 0.4 mg/dL (0.2-1.0); Calcium 8.6 mg/dL (8.5-10.1); Carbon Dioxide 29.7 mmol/L (21.0-32.0); Chloride 100 mmol/L (98-107); Estimated GFR (African America 57 (>=60 mL/min/1.73m^2); Estimated GFR (Non-African Ame 47 (>=60 mL/min/1.73m^2); Glucose 73 mg/dL (74-106); Magnesium 1.8 mg/dL (1.8-2.4)
[2024-04-14 06:51] LABS: Albumin Globulin Ratio 0.6; Albumin Level 2.2 g/dL (3.4-5.0); Chol HDL Ratio 2.2; Cholesterol 107 mg/dL (<=200); HDL Cholesterol 48 mg/dL (40-60); Thyroid Stimulating Hormone 10.469 uIU/mL (0.358-3.740); Total Protein 6.2 g/dL (6.4-8.2); Triglycerides 61 mg/dL (<=150); VLDL CHOLESTEROL 12.2 mg/dL
[2024-04-14 08:02] LABS: Troponin I High Sensitivity 116.3 pg/mL (4.0-76.1)
[2024-04-14 09:11] LABS: Troponin I High Sensitivity 123.1 pg/mL (4.0-76.1)
[2024-04-14] MEDS: MAGNESIUM OXIDE 400 MG TABLET PO (09:52)
[2024-04-14] MEDS: ALLOPURINOL 300 MG TABLET PO (09:52)
[2024-04-14] MEDS: CARVEDILOL 6.25 MG TABLET PO ×2 (09:53→21:28)
[2024-04-14] MEDS: HEPARIN SODIUM (PORCINE) 5,000 UNIT/ML VIAL 5000 UNIT SUBQ (09:53)
[2024-04-14] MEDS: POTASSIUM CHLORIDE 10 MEQ ER TABLET 20 MEQ PO (09:53)
[2024-04-14] MEDS: LEVOTHYROXINE SODIUM 25 MCG TABLET PO (09:57)
[2024-04-14] MEDS: ACETAMINOPHEN 500 MG TABLET 1000 MG PO ×2 (09:57→21:28)
--- NOTE | 2024-04-14 10:06 | P.PN_ITS ---
Progress Note: Subjective Subjective Interval history: Very lengthy discussion with patient, he does feel somewhat better today, less swelling in his leg, discussed with him the options which are very limited, after great length discussion was elected to have the patient be transferred to be can receive cardiac care in case is needed with his surgery Patient denies chest pain or shortness of breath Daughter was in the room for most of the 5 times that I went in and out of the room Exam Constitutional Vital Signs, click to edit/add: Last Vital Signs Temp 98.1 F 04/14/24 08:17 Pulse 74 04/14/24 08:17 Resp 18 04/14/24 05:51 BP 110/64 04/14/24 08:17 Pulse Ox 92 L 04/14/24 08:17 O2 Del Method Room Air 04/14/24 08:17 Documenting provider has reviewed patient's vital signs: yes Common normals: no apparent distress Chest Common normals: inspection of chest normal Respiratory Common normals: normal respiratory effort Cardio Common normals: regular rate Rhythm: abnormal rhythm GI Common normals: negative for Normal to inspection, nondistended, normoactive bowel sounds present (obese) Extremity Common normals: abnormal to inspection (3+ edema bilateral lower extremities) Progress Note: Objective Labs Labs: Short CBC 04/14/24 Range/Units 06:05 WBC 5.8 (4.0-11.0) 10^3/uL Hgb 7.9 L (14.0-18.0) g/dL Hct 24.2 L (42.0-54.0) % Plt Count 207 (150-450) 10^3/uL BMP 04/13/24 04/14/24 09:51 06:05 Sodium 137 138 Potassium 4.5 3.6 Chloride 99 100 Carbon Dioxide 31.5 29.7 BUN 21.0 H 22.0 H Creatinine 1.62 H 1.43 H Glucose 80 73 L Calcium 8.9 8.6 Liver Function 04/13/24 04/14/24 Range/Units 09:51 06:05 Total Bilirubin 0.5 0.4 (0.2-1.0) mg/dL AST 25 18 (15-37) U/L ALT 10 L 8 L (16-63) U/L Alkaline Phosphatase 118 H 104 (46-116) U/L Albumin 2.5 L 2.2 L (3.4-5.0) g/dL Progress Note: A&P Assessment and Plan (1) Acute on chronic diastolic CHF (congestive heart failure): (2) Acute on chronic renal failure: Qualifiers: Acute renal failure type: unspecified Chronic kidney disease stage: un specified stage Qualified Code(s): N17.9 - Acute kidney failure, unspecified; N18.9 - Chronic kidney disease, unspecified (3) Afib: Qualifiers: Atrial fibrillation type: longstanding persistent Qualified Code(s): I48.11 - Longstanding persistent atrial fibrillation (4) Hypercholesterolemia: (5) Hypothyroid: Qualifiers: Hypothyroidism type: acquired Qualified Code(s): E03.9 - Hypothyroidism, unspecified (6) PVD (peripheral vascular disease): (7) Insomnia: Qualifiers: Insomnia type: primary Qualified Code(s): 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 (8) BPH (benign prostatic hyperplasia): Qualifiers: Lower urinary tract symptom detail: unspecified Lower urinary tract symptom presence: symptoms present Qualified Code(s): N40.1 - Benign prostatic hyperplasia with lower urinary tract symptoms (9) Gout: Qualifiers: Chronicity: unspecified Gout etiology: unspecified cause Gout site: unspecified site Qualified Code(s): M10.9 - Gout, unspecified (10) Bladder retention: (11) Fluid collection at surgical site: Qualifiers: Encounter type: initial encounter Qualified Code(s): T88.8XXA - Other specified complications of surgical and medical care, 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, initial encounter Plan (1) Acute on chronic diastolic CHF (congestive heart failure) with reduced ejection fraction:-Good diuresis overnight, net of about 3 L, creatinine is actually improved from previous day, however BNP is higher, echocardiogram does show reduced ejection fraction, this is actually somewhat better than in February when his ejection fraction was 35 to 40%, is currently 45% on our echocardiogram. Troponin elevation-likely troponin leak--this is like related to the acute diastolic heart failure-BNP was elevated this morning so I checked labs from previous day elevated then as well, hovering around 120 which is about 2.4X above our upper limit of normal. Will repeat in a.m., EKG without significant ST changes. Acute on chronic renal failure: Improved today Afib: Changed to heparin in anticipation of surgery Hypercholesterolemia: Continue current med Hypothyroid: Continue current meds PVD (peripheral vascular disease): SCDs in place Insomnia: Continue with Lunesta BPH (benign prostatic hyperplasia): Indwelling Chou in place Gout: Continue with current medications Bladder retention: Chou in place Fluid collection at surgical site: Culture pending, Dr. Burris does not feel antibiotics were warranted at this time, patient afebrile and normal white blood cell count Admission status: Patient was presenting to the hospital for 20 to 30-minute surgical procedure but found to be in acute diastolic heart failure, patient admitted now with elevated high-sensitivity troponins, medically necessary treatment will span 2 midnights. Inpatient status. Urinary Catheter Management Urinary Catheter Management Urethral: Cath placed during this visit: no
--- NOTE | 2024-04-14 10:42 | P.ORPN_ITS ---
Progress Note: A&P Assessment and Plan (1) Acute on chronic diastolic CHF (congestive heart failure): (2) Acute on chronic renal failure: Qualifiers: Acute renal failure type: unspecified Chronic kidney disease stage: unspecified stage Qualified Code(s): N17.9 - Acute kidney failure, unspecified; N18.9 - Chronic kidney disease, unspecified (3) Afib: Qualifiers: Atrial fibrillation type: longstanding persistent Qualified Code(s): I48.11 - Longstanding persistent atrial fibrillation (4) Hypercholesterolemia: (5) Hypothyroid: Qualifiers: Hypothyroidism type: acquired Qualified Code(s): E03.9 - Hypothyroidism, unspecified (6) PVD (peripheral vascular disease): (7) Insomnia: Qualifiers: Insomnia type: primary Qualified Code(s): 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 (8) BPH (benign prostatic hyperplasia): Qualifiers: Lower urinary tract symptom presence: symptoms present Lower urinary tract symptom detail: unspecified Qualified Code(s): N40.1 - Benign prostatic hyperplasia with lower urinary tract symptoms (9) Gout: Qualifiers: Gout site: unspecified site Gout etiology: unspecified cause Chronicity: unspecified Qualified Code(s): M10.9 - Gout, unspecified (10) Bladder retention: (11) Fluid collection at surgical site: Assessment and Plan: 7 weeks s/p L2-5 decompression and noninstrumented fusion with Dr Burris -Postop fluid collection on MRI with dehiscence of wound and persistent drainage and surrounding erythema -Surgical I&D with wound closure/possible wound VAC placement was recommended, p t not cleared by anesthesia prior to surgery, hospitalist working on medical optimization -Neurovascularly intact on exam bilateral lower extremities today -Disposition will depend on medical clearance and discussions with family. Patient may be better served at a tertiary care center where Cardiology, ICU, and ID is readily available given his medical comorbidities. I discussed with Dr. Sorto that [facility] and [facility] are options as the family refused to return to [facility]. -Ortho following Discussed with my Supervising Physician, Dr Burris. Qualifiers: Encounter type: initial encounter Qualified Code(s): T88.8XXA - Other specified complications of surgical and medical care, 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, initial encounter Subjective Subjective Principal diagnosis: Post Op Seroma Interval history: Patient is an 83-year-old male and is 7 weeks status post L2-5 decompression and noninstrumented fusion. He has been residing in SNF we have been following him closely for persistent wound drainage, surrounding erythema, and wound dehiscence. Patient has had postoperative complications from his CHF and family was not pleased with the care given at [facility] in [place]. After going to the SNF he again was suffering from fluid overload and urinary retention and was hospitalized in March. His persistent surgical wound drainage and erythema and MRI was ordered that showed a postop fluid collection. We did review patient's MRI results with him in the office yesterday and sent him here for surgical I&D, wound closure, and possible wound VAC. Patient was not cleared for surgery yesterday and was hospitalized for medical optimization. Hospitalist has been following his trops, BNP, and he has been on Bumex. Cardiology will be consulted here. Patient may need transfer to a higher level of care. Today patient's pain is controlled. Exam Narrative Exam Narrative: On exam patient is in no distress, laying in the hospital bed alert. On inspection of the lumbar surgical wound there is dehiscence at the proximal portion with active serosanguineous drainage. There is a large area of surrounding erythema surrounding the surgical wound. Bilateral lower extremities are edematous. Patient has 5/5 strength to the bilateral lower extremities and is neurovascularly intact. Constitutional Vital Signs, click to edit/add: Last Vital Signs Temp 98.1 F 04/14/24 08:17 Pulse 80 04/14/24 10:00 Resp 18 04/14/24 05:51 BP 110/64 04/14/24 08:17 Pulse Ox 92 L 04/14/24 08:17 O2 Del Method Room Air 04/14/24 08:17 Urinary Catheter Management Urinary Catheter Management Urethral: Cath placed during this visit: no
[2024-04-14 10:43] LABS: Troponin I High Sensitivity 121.8 pg/mL (4.0-76.1)
[2024-04-14 16:46] LABS: Bilirubin Urine NEGATIVE (NEGATIVE); Blood Urine NEGATIVE (NEGATIVE); Clarity Urine CLEAR (CLEAR); Color Urine LT. YELLOW (YELLOW); Glucose Urine UA NEGATIVE (NEGATIVE); Ketones Urine NEGATIVE (NEGATIVE); Leukocyte Esterase Urine MODERATE (NEGATIVE); Nitrite Urine NEGATIVE (NEGATIVE); Protein Urine NEGATIVE (NEG/TRACE); Urobilinogen Urine 0.2 EU/dL (0.2-1.0); pH Urine 6.5 (5.0-9.0)
[2024-04-14 16:54] LABS: Bacteria Urine SMALL #/HPF (NONE SEEN); Cast Seen? NONE SEEN #/LPF (NONE SEEN); Crystals Seen? None Seen #/HPF (None Seen); Mucus Urine NONE SEEN (NONE SEEN); RBC Urine NONE SEEN #/HPF (0-2); Squamous Epithelial Cell Urine NONE SEEN #/LPF (NONE/RARE); Urine Culture Indicated ALREADY ORDERED
[2024-04-14] MEDS: OXYCODONE HCL/ACETAMINOPHEN 5MG/325MG 1 TAB PO (18:41)
--- NOTE | 2024-04-14 21:10 | RESP.RT ---
Patient is angry and wanting the nurse. Patient refused to do PEP. He told me I could take it with me because he was leaving.
[2024-04-14] MEDS: ATORVASTATIN CALCIUM 40 MG TABLET PO (21:28)
--- NOTE | 2024-04-14 22:59 | PC.NURSE ---
1949- [facility] DON called with a bed assignment for the patient. RN then informed the patient of the bed and that we were working on transportation to move the patient to [facility]. Pt then asked if the RN called his daughter, Abigail, and RN responded by saying that we wanted to get the transportation ETA before I called the daughter. Pt then stated he would just call the daughter himself. at 2014 the daughter called the med surg desk asking to speak to the nurse. Daughter began asking why we are transporting him in the middle of the night and that we need to push it back until after seven am. RN explained to the daughter that we risk delaying care and possibly even losing the bed at [facility]. RN stated that we are a 24 hour facility and continue care even at night. Daughter asked what will happen to his belongings. RN informed the daughter that his belongings will go with him except for the wheelchair which the daughter stated she would be able to garbage pick up worker at a different time. Daughter voiced understanding and asked that the RN call her when the patient leaves so she can be aware. RN stated that yes, she will call her when transport takes the patient to [facility]. RN then went into the room because the patient wanted to be informed on everything happening RN sat in the room with the patient for about 20minutes explaining the process of the transport. Pt is concerned about being on the stretcher for the trip, but the RN assured the patient that she could give him his pain medications before he leaves to help keep him comfortable on the way to [facility]. Pt was okay with this and vooiced understanding and is accepting of transport at this time. 2037 RN messaged the night hospitalist phone circuit operator to notify her that the patient has received a bed and that the accepting physician in Dr. Capone. RN requested a discharge order be placed. Night hospitalist then placed a discharge order. 2058 [place] called with an updated ETA of 0215. 2106 RN called [facility] supervisor to notify her of the estimated ETA and she stated they would hold the bed for him.
[2024-04-15] VITALS: PULSE 73
[2024-04-15 00:23] VITALS: BP 124/80; PULSE 64; TEMP 36.4; O2SAT 93
[2024-04-15 02:00] VITALS: PULSE 67
[2024-04-15] MEDS: OXYCODONE HCL/ACETAMINOPHEN 5MG/325MG 1 TAB PO (02:41)
--- NOTE | 2024-04-15 02:42 | PC.NURSE ---
[facility] arrived around 214 to transport patient. report was given to them by RN. RN then medicated pt with PRN Percocet for transport. pt was discharged at 225. at 226 RN called report too Benita Guaman. Daughter Abigail was called at 023 to update her that the patient was transferred out.
--- NOTE | 2024-04-15 08:02 | PM.DS1 ---
DS: Providers Provider Date of admission: 04/13/24 13:08 Primary care physician: Feliciano Ambrosio DO Consults: 04/13/24 Consult to Hospitalist Routine Consulting Provider: Joy Darnell Reason for consultation: medical management and clearance for surgery Has provider been notified: Yes 04/13/24 14:14 Physical Therapy Eval and Treat Routine Reason for consultation: weakness Has provider been notified: No 04/14/24 10:06 Consult to Cardiology Routine Reason for consultation: clearance for sugery Has provider been notified: No DS: Diagnosis Discharge Diagnosis (1) Acute on chronic diastolic CHF (congestive heart failure): (2) Acute on chronic renal failure: Qualifiers: Acute renal failure type: unspecified Chronic kidney disease stage: unspecified stage Qualified Code(s): N17.9 - Acute kidney failure, unspecified; N18.9 - Chronic kidney disease, unspecified (3) Afib: Qualifiers: Atrial fibrillation type: longstanding persistent Qualified Code(s): I48.11 - Longstanding persistent atrial fibrillation (4) Hypercholesterolemia: (5) Hypothyroid: Qualifiers: Hypothyroidism type: acquired Qualified Code(s): E03.9 - Hypothyroidism, unspecified (6) PVD (peripheral vascular disease): (7) Insomnia: Qualifiers: Insomnia type: primary Qualified Code(s): 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 (8) BPH (benign prostatic hyperplasia): Qualifiers: Lower urinary tract symptom presence: symptoms present Lower urinary tract symptom detail: unspecified Qualified Code(s): N40.1 - Benign prostatic hyperplasia with lower urinary tract symptoms (9) Gout: Qualifiers: Gout site: unspecified site Gout etiology: unspecified cause Chronicity: unspecified Qualified Code(s): M10.9 - Gout, unspecified (10) Bladder retention: (11) Fluid collection at surgical site: Qualifiers: Encounter type: initial encounter Qualified Code(s): T88.8XXA - Other specified complications of surgical and medical care, 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, initial encounter DS: Summary Hospital Course Hospital Course: Consultation for wound dehiscence and medical management management for all other medical problems, patient was placed on IV antibiotics, wound care per surgical team, much discussion took place on how to have this repaired as soon as possible, unable to complete the process here, several options were given to family and transferred patient was arranged for transport to [facility] for ultimately surgical intervention the following morning, patient was not seen on the day of discharge as he was transferred out at 4:00 in the morning Time Spent with Patient Time attestation: Total time spent providing and/or coordinating discharge services: Exam Narrative Exam Narrative: Not seen on the day of discharge secondary to patient transferred to 4 in the morning Constitutional Vital Signs, click to edit/add: Last Vital Signs Temp 97.5 F L 04/15/24 00:23 Pulse 67 04/15/24 02:00 Resp 18 04/15/24 00:23 BP 124/80 04/15/24 00:23 Pulse Ox 93 L 04/15/24 00:23 O2 Del Method Room Air 04/15/24 00:23 Discharge Plan Discharge Disposition: [facility] Discharge Date/Time: 04/15/24 02:26
== END 2024-04-15 02:26 | disposition short-term general hospital (02) | DRG 291 ==
LOC: MS 13:18
PROVIDERS: Anesthesiology; Family Medicine; Admitting Provider Family Medicine; PCP Family Medicine; Visit Provider Family Medicine
DX: I13.0 Hypertensive heart and chronic kidney disease with heart failure and stage 1 through stage 4 chronic kidney disease, or unspecified chronic kidney disease (principal); I50.33 Acute on chronic diastolic (congestive) heart failure; T83.511A Infection and inflammatory reaction due to indwelling urethral catheter, initial encounter; N39.0 Urinary tract infection, site not specified; N17.9 Acute kidney failure, unspecified; I48.11 Longstanding persistent atrial fibrillation; T81.31XA Disruption of external operation (surgical) wound, 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, initial encounter; N18.9 Chronic kidney disease, unspecified; E78.00 Pure hypercholesterolemia, unspecified; E03.9 Hypothyroidism, unspecified; Z79.890 Hormone replacement therapy; I73.9 Peripheral vascular disease, unspecified; G47.00 Insomnia, unspecified; R33.9 Retention of urine, unspecified; Z79.01 Long term (current) use of anticoagulants; Z87.891 Personal history of nicotine dependence; N40.1 Benign prostatic hyperplasia with lower urinary tract symptoms; M10.9 Gout, unspecified; Z53.8 Procedure and treatment not carried out for other reasons; T88.8XXA Other specified complications of surgical and medical care, 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, initial encounter; Z98.1 Arthrodesis status; Z96.642 Presence of left artificial hip joint; Z96.653 Presence of artificial knee joint, bilateral; B96.5 Pseudomonas (aeruginosa) (mallei) (pseudomallei) as the cause of diseases classified elsewhere; B96.20 Unspecified Escherichia coli [E. coli] as the cause of diseases classified elsewhere; F51.01 Primary insomnia
CPT/HCPCS: 36415; 71045; 80048; 80053; 80061; 81001; 83735; 83880; 84443; 84484; 85025; 85610; 85730; 87070; 87075; 87086; 87150; 87186; 93005; 93308; 94667; 94668; 97162; 97530; G0328; J1644

== ENCOUNTER 2024-05-11 09:55 | Outpatient (OUT) | payer MEDICARE, BC, SELFPAY ==
--- NOTE | 2024-05-11 09:56 | XR_ITS ---
The [address] [address] Patient Name: ATVO WALLIS MRN: [id number] date: 1940 Sex: M Assigned Patient Location: Current Patient Location: Accession/Order Number: [id number] Exam Date: 05/11/2024 11:20 Report Date: 05/11/2024 11:24 At the request of: SHRUTI HALL MD Procedure: XR lumbar spine 2-3V LUMBAR SPINE - 2 views COMPARISON: MRI 03/26/2024 CLINICAL DATA: Back pain. Follow-up laminectomy Standing AP and lateral views were obtained. There is osteopenia. Levoscoliotic curvature is noted. Laminectomy is seen extending from L3 through L5. There is minor wedge deformity at T12 which is chronic. No acute compression fractures are noted. There is slight retrolisthesis of L1 on L2 and L2 on L3. There is also continued mild anterolisthesis of L4 and L5. There is multilevel disc space narrowing with endplate spurring and facet hypertrophy. The SI joints show mild sclerosis. No other paraspinal soft tissue abnormalities are present. There is atherosclerotic disease at the aorta and iliac arteries. XR/XR lumbar spine 2-3V IMPRESSION: OSTEOPENIA, SCOLIOSIS, POSTOPERATIVE AND DEGENERATIVE CHANGES DESCRIBED. Impression dictated by: Ita Perez M.D.05/11/2024 11:24 AM Dictation Location: [place] [address] Electronically authenticated by: [id number] Y Date: 05/11/2024 11:24
== END 2024-05-11 09:56 | disposition home or self-care (01) ==
LOC: EC 09:55
PROVIDERS: PCP Family Medicine; Visit Provider Orthopaedic Surgery Orthopaedic Surgery of the Spine
DX: M51.369 Other intervertebral disc degeneration, lumbar region without mention of lumbar back pain or lower extremity pain (principal); Z47.89 Encounter for other orthopedic aftercare; M85.80 Other specified disorders of bone density and structure, unspecified site; M41.86 Other forms of scoliosis, lumbar region
CPT/HCPCS: 72100

== ENCOUNTER 2024-12-27 20:56 | Emergency (ER) | payer MEDICARE, BC, SELFPAY ==
--- OUTSIDE RECORDS SUMMARY | 2024-12-18 11:50 | XMS_ITS | Continuity of Care Document ---
Author Organization [facility] Address [address] [place] [address] Phone Care Team Providers Care Molecular Biology Scientist Name Role Phone Feliciano Ambrosio DO Primary Care Provider Bhupinder Mcintyre DO Attending Provider Frankie Reynolds MD Attending Provider Terence Steele PA-C Emergency Provider [phone] Frankie Johnson DO Admit Provider [phone] Franck Gagnon DO Other Provider [phone] Jovany Stovall MD Attending Provider [phone] Jovany Stovall MD Other Provider Frankie Johnson DO Attending Provider [phone] Keely Montoya APRN Attending Provider [phone] Sree Thao DO Emergency Provider [phone] Akash Mccartney MD Admit Provider Michele Knight MD Attending Provider Care Teams Patient Care Team Team Status: Active Member Role Status Dates Bhupinder Mcintyre DO Specialist Active Jossy Garcia Care ProviderActive Visit Care Team Team Status: Inactive Member Role Status Dates Feliciano Ambrosio DO Primary Care Provider Active Sta rt: September 24, 2024 End: September 24, 2024W Be Francisco Javier , DOAttending ProviderActiveStart: September 24, 2024 End: September 24, 2024 Visit Care Team Team Status: Inactive Member Role Status Dates Feliciano Ambrosio DO Primary Care Provider Active Sta rt: October 04, 2024 End: October 04, 2024Mickari Reynolds MDAttending ProviderActiveStart: October 04, 2024 End: October 04, 2024 Visit Care Team Team Status: Active Member Role Status Dates Feliciano Ambrosio DO Primary Care Provider Active Sta rt: October 06, 2024 Frankie Reynolds MDAttending ProviderActiveStart: October 06, 2024 Visit Care Team Team Status: Active Member Role Status Dates Feliciano Ambrosio DO Primary Care Provider Active Sta rt: October 06, 2024 Arleen Mares ProviderActiveStart: October 06, 2024 Frankie Johnson DOAdmit ProviderActiveStart: October 06, 2024 Franck Gagnon DOOther ProviderActiveStart: October 06, 2024 Jennifer Singhending ProviderActiveStart: October 06, 2024 Elizabeth Singh ProviderActiveStart: October 06, 2024 Visit Care Team Team Status: Inactive Member Role Status Dates Feliciano Ambrosio DO Primary Care Provider Active Sta rt: October 07, 2024 End: October 10, 2024Arleen Mares ProviderActiveStart: October 07, 2024 End: October 10, 2024Mickari Johnson DOAdmit ProviderActiveStart: October 07, 2024 End: October 10, 2024Mickari Johnson DOAttending ProviderActiveStart: October 07, 2024 End: October 10, 2024 Visit Care Team Team Status: Inactive Member Role Status Dates Feliciano Ambrosio DO Primary Care Provider Active Sta rt: October 31, 2024 End: October 31, 2024Ata Singh ProviderActiveStart: October 31, 2024 End: October 31, 2024 Visit Care Team Team Status: Inactive Member Role Status Dates Feliciano Ambrosio DO Primary Care Provider Active Sta rt: November 06, 2024 End: November 06, 2024Keely Montoya APRNAtgabriel ProviderActiveStart: November 06, 2024 End: November 06, 2024 Visit Care Team Team Status: Inactive Member Role Status Dates Feliciano Ambrosio DO Primary Care Provider Active Sta rt: November 29, 2024 End: November 29, 2024ElenZaire Cota ProviderActiveStart: November 29, 2024 End: November 29, 2024 Visit Care Team Team Status: Inactive Member Role Status Dates Feliciano Ambrosio DO Primary Care Provider Active Sta rt: December 04, 2024 End: December 04, 2024ElenZaire Cota ProviderActiveStart: December 04, 2024 End: December 04, 2024 Visit Care Team Team Status: Inactive Member Role Status Dates Feliciano Ambrosio DO Primary Care Provider Active Sta rt: December 12, 2024 End: December 18Sumi Vickers ProviderActiveStart: December 12, 2024 End: December 18, 2024Akash Mccartney MDAdmit ProviderActiveStart: December 12, 2024 End: December 18, 2024Rabecka Knight MDAttending ProviderActiveStart: December 12, 2024 End: December 18, 2024 Chief Complaint and Reason for Visit Chief Complaint Admit Date recent uti, afib, chronic [place] September 12:45pm Ref: Dr. Ambrosio - UTI October 04, 2024 1:51 pm Fall October 06, 2024 9:1 3pm Fall October 07, 2024 7:0 5am I62.9 October 31, 2024 11 :01am hospital f/u - subdural hematoma Septemb er 2024 9:43am M81.0 November 29, 2024 11:23am S32.010A M54.9 M48.062 R29.898 December 04, 2024 9:41am fall December 12, 2024 2: 39pm Reason for Visit Admit Date Catheter-associated urinary tract infect ion October 04, 2024 1:51pm Catheter-associated urinary tract infect ion October 07, 2024 7:05am Intracranial hemorrhage October 07, 2024 7:05am Abrasion of arm, left October 07, 2024 7 :05am Fall October 07, 2024 7:0 5am Fever October 07, 2024 7:0 5am Compression fracture of L1 lumbar verteb ra November 06, 2024 9:43am Hx of decompressive lumbar laminectomy S eptember 2024 9:43am Intracranial hemorrhage November 06 9:43am Radicular low back pain November 06 9:43am Severe back pain November 06, 2024 9:43am Atrial fibrillation with RVR December 2:39pm Falls December 12, 2024 2: 39pm Pressure ulcer of coccygeal region, stag e 2 December 12, 2024 2:39pm 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 This must be done prior to the appointment with Dr. Stovall.Frankie Martengs[address] [facility] [phone] Phone: Mickari [phone] [phone] Phone: Please call to schedule an appointment for right heel stage 3 pressure injury.For a brain CT. This must be done prior to the appointment with Dr. Stovall.Please call to schedule follow up appointment following discharge from group home facility.Please have the Brain CT done 1 day prior to this appointment. This appointment is scheduled with Dr. Stovall's Nurse Practitioner. Health Concerns Concerns A [facility] screening has identified you as FRAIL or AT RISK FOR FRAILTY. This puts you at a higher risk for infection, illness, falls, and other injuries. Here are four ways to help you reduce your risk of frailty: 1. IDENTIFY EARLY SIGNS OF FRAILTY ??? Discuss contributing factors and concerns with your doctor 2. BE ACTIVE ??? Walking and light strengthening exercises will help reduce weakness 3. EAT WELL ??? Aim for three healthy meals a day that are high in protein 4. THINK POSITIVE ??? Keep your mind active by being sociable and continuing to learn References: Stay Strong: Four Ways to Beat the Frailty Risk https://www.[facility].org/health/qnvdgzth-ips-mmirtdltht/zdmf-eogxir-hpgg- nbbl-wq-rqad-the-fra ilty-riskA [facility] screening has identified you as FRAIL or AT RISK FOR FRAILTY. This puts you at a higher risk for infection, illness, falls, and other injuries. Here are four ways to help you reduce your risk of frailty: 1. IDENTIFY EARLY SIGNS OF FRAILTY ??? Discuss contributing factors and concerns with your doctor 2. BE ACTIVE ??? Walking and light strengthening exercises will help reduce weakness 3. EAT WELL ??? Aim for three healthy meals a day that are high in protein 4. THINK POSITIVE ??? Keep your mind active by being sociable and continuing to learn References: Grover Strong: Four Ways to Beat the Frailty Risk https://www.[facility]/health/fgywqset-qvl-owxvlljnqg/kewq-bexctb-xcxs- iuks-sq-mqzz-the-fra ilty-risk Allergies, Adverse Reactions, Alerts Allergen Type Severity Reaction Last Updated Verified Status Comments fentanyl Allergy Unknown Dizziness, loopy Octobe r 2024 12:23pm Yes Active indomethacinAllergyUnknownDizzinessOctober 2024 12:23pmYesActivezolpidem AllergyUnknownConfusion, memory lossOctober 2024 12:23pmYesActive PenicillinsAllergyUnknownWeaknessOctober 2024 12:58ciMoeHurrbx9/5/25 - had a penicillin injection prior to a procedure 20-30 years ago and fell down some stairs afterward Social History Smoking Status Status Start Date End Date Date of Observa tion Ex-smoker (finding) December 14, 2024 11:17am Observation Status Observation Response Date of Response Legal Sex Male (finding) [facility] 1940 Social History Assessments Assessment Value Date Recorded SDOH Follow up December 18, 2024 11:09amQuestionAnswerDate RecordedHas the SDOH screening changed since admission?[facility] 2024 11:09am Assessment Value Date Recorded SDOH Follow up December 14, 2024 10:13amQuestionAnswerDate RecordedHas the SDOH screening changed since admission?NOctober 2024 10:13am Assessment Value Date Recorded SDOH Follow up October 09, 2024 11:45amQuestionAnswerDate RecordedHas the SDOH screening changed since admission?Jessy 2024 11:45am Family History Relationship Condition Age at Onset Recorded Date/T jc mother Alzheimer's disease Unknown History of coronary artery bypass surgeryUnknownCoronary artery diseaseUnknown Myocardial infarctionUnknownHeart diseaseUnknownHypertensionUnknownbrother Myocardial infarctionUnknownfatherHepatic cirrhosisUnknownDeceasedUnknownsister Malignant neoplasmUnknownbrotherHeart diseaseUnknownsonMalignant neoplasmUnknown Problems Active Problems Medical Problem Onset Date Status Comments LIS (acute kidney injury) Unknown Active Severe back painUnknownActiveOpen wound of skinUnknownActivePressure ulcer of coccygeal region, stage 2UnknownActiveStage III pressure ulcer of right heel UnknownActiveCompression fracture of L1 lumbar vertebraUnknownActiveCOVID-19 UnknownActiveInsomniaUnknownActiveInsomniaUnknownActiveScreening for prostate cancerUnknownActiveHx of decompressive lumbar rbqnxbmtnoaOwliwfaJelfib4143-ezxe tumor resectionLow back painUnknownActiveSleep apneaUnknownActivedoes not use equipmentRadicular low back painUnknownActiveFatigueUnknownActiveCatheter- associated urinary tract infectionUnknownActiveChronic CHFUnknownActiveMuscle paresesUnknownActiveMyxopapillary lezuhjvfkeSmpjbdsHawgbg6302Nrd related osteoporosisUnknownActiveBradycardiaUnknownActiveEdemaUnknownActiveVenous ulcer of left legUnknownActiveHyperlipidemiaUnknownActiveWeakness of both lower extremitiesUnknownActiveVenous insufficiencyUnknownActiveFallsUnknownActiveDVT prophylaxisUnknownActiveNeurogenic claudication due to lumbar spinal stenosis UnknownActiveUrinary tract infection associated with indwelling urethral catheterUnknownActiveIntracranial hemorrhageUnknownActiveLumbar spondylolysis UnknownActiveConstipationUnknownActiveCellulitis and abscess of left legUnknown ActiveAtrial fibrillation with RVRUnknownActiveInactive/Resolved Problems Medical Problem Onset Date Status Comments Bacteremia due to Pseudomonas Unknown Resolved Bacteremia due to EnterococcusUnknownResolvedImpaired activities of daily living UnknownResolvedBPH (benign prostatic hyperplasia)UnknownResolvedLow serum prealbuminUnknownResolvedAcute respiratory failure with hypoxiaUnknownResolved Medication side effectUnknownResolvedAcute exacerbation of congestive heart failureUnknownResolvedCHF exacerbationUnknownResolvedHematuriaUnknownResolved LacerationUnknownResolvedAcute decompensated heart failureUnknownResolvedHFrEF (heart failure with reduced ejection fraction)UnknownResolvedComplicated UTI (urinary tract infection)UnknownResolvedAbscessUnknownResolvedHypoxemiaUnknown ResolvedAtrial fibrillationUnknownResolvedAcute on chronic congestive heart failure with left ventricular diastolic dysfunctionUnknownResolvedStatus post total left knee replacementUnknownResolvedHypothyroidismUnknownResolvedPleural effusionUnknownResolvedElevated troponinUnknownResolvedAbscess of left leg UnknownResolvedBladder retentionUnknownResolvedAnasarcaUnknownResolvedFalls frequentlyUnknownResolvedGeneralized weaknessUnknownResolvedHypoxiaUnknown ResolvedSepsisUnknownResolvedLeft ankle painUnknownResolvedAltered mental status UnknownResolvedDebilityUnknownResolvedDifficulty walkingUnknownResolved HypertensionUnknownResolvedConstipationUnknownResolvedFallUnknownResolvedFall UnknownResolvedAbrasion of arm, leftUnknownResolvedDehydrationUnknownResolved Medications Medication Status Dose Units Route Directions Qty Days St art Date Stop Date End Date Instructions Adherence Bumetanide 1 mg tablet Discontinued 1 MG PO Alexander y 90 June 06, 2023 3:47pmJanuary 2024 11:17amEszopiclone 3 mg tablet Jaivgqnbgveh1SYMWTdpdv at hytiznu8237Hpylt 2023 3:47pmApril 2023 4:29pmTrazodone 50 mg dgjbqtVyunkuesjbym78YOGFInqbp at bedtime as needed for weqwinbk09Mspcv 2023 3:49pmSeptember 2023 12:01pmEszopiclone 3 mg ahtfieWfshevuqicjf2UFGXZrqyt at vtxgcqz9285Ftdra 1st, 2024 4:29pmSeptember 2023 12:01pmLevothyroxine (Synthroid) 150 mcg czamrzXaygjgtaeiwl322HOTSNJasoi cvzlzjg35IjtcmJune 07, 2023 1:40pmSeptember 2023 9:26amPotassium Chloride (Klor-Con M20) 20 mEq tablet,ER particles/bjnuriliCvffjamvvazg23HPXZWHawws92 June 07, 2023 12:00amJanuary 2024 1:33pmAtorvastatin 40 mg tablet Hsfonvzwvwln46WFHCZhyha01Otjq 27th, 2024 2:09pmAugust 2024 7:31pm Levothyroxine (Synthroid) 150 mcg mkxkvsLnlihozjcapw591WFZQWZpfbp oyaksik89 November 18, 2023 9:25amSeptember 2023 12:01pmEszopiclone 3 mg tablet Cobhjmkhntfu0JUHUTzrjg at vxokdcv1284Skhhmblxa 2023 12:01pmJune 2024 10:33amLevothyroxine (Synthroid) 150 mcg wbezriTyrqej146UJKZRLtlsf tzucbvw21 November 29, 2023 12:01pmComplies with drug therapyTrazodone 50 mg tablet Lpckgy80YDGRIdagq at bedtime as needed for sstnqiwv70Gakuqvmrh 24th, 2024 12:01pmComplies with drug therapyDoxycycline Hyclate 100 mg tabletDiscontinued 100MGPOTwice ukmvf85Fqrmqdt2023 12:00amDecember 2023 10:23am Sulfamethoxazole-Trimethoprim (Bactrim Ds) 800-160 mg pzpsauAxwfdqhwrllt8BWDIL Twice cohiu07Urlhjpn2023 12:00amDecember 2023 10:23amMupirocin 2 % trgxrbogBjbfkcbzfhbz9IPZLWCBDLBAMFZfvby wwgie06JkuncinDecember 23, 2023 12:06pmJanuary 2024 11:14am1 application Externally Twice a dayEszopiclone 3 mg tablet Ycbcbxfhfqcc3OBRUCxvjp at qdudhls4195Hmid 2024 10:33amJune 2024 9:18amCiprofloxacin Hcl (Cipro) 500 mg cmzeqpVhcjaehtuxkw497HQYMPrqoc twjkd0567 August 29, 2024 12:00amJuly 2024 3:15pmEszopiclone 3 mg tabletDiscontinued 3MGPODaily at mcrocgu6130Xqlw 25th, 2025 9:18amAugust 2024 7:28pmNystatin 100,000 unit/gram acmvvhIenwud1KQUCWNDRSJGGQJkbdf hwbpv23Ikrh 2024 12:28pm Complies with drug therapyHydrocodone-Acetaminophen ([place]) 5-325 mg tablet Nzspjsowbhqm8AIHMLD3R as needed for wuhi08Minwhnugr 2019September 2019 9:42amCephalexin (Keflex) 500 mg bzjcgqcZvamxawbeshf734WXPOM06B5406Dbsmqamn 2017 1:00amFebruary 2017 1:00amFebruary 2017 1:02amAtorvastatin 40 mg eygzgjGsbzvzpbcmdx60KNFGIndvsntLmnudi 2019 12:00amOctober 2019 12:33pmAllopurinol 300 mg bgscmgYwltsdfrlzzr893CCDDVdfhgVnireu 2019 12:00amOctober 2019 12:34pmEszopiclone (Lunesta) 3 mg tabletDiscontinued3 MGPODaily at bedtimeAugust 2019 12:00amOctober 2019 12:33pm Mirabegron (Myrbetriq) 50 mg tablet extended release 24 fuApfxczhwhrrz82UJPP Daily with lunchAugust 2019 12:00amOctober 2019 12:34pmApixaban (Eliquis) 5 mg vmdsnkTnfndliyhjls6VSVOTwktk dailyAugust 2019 12:00am January 04, 2020 12:33pmSacubitril-Valsartan (Entresto) 24-26 mg tablet Nbbleazoadvj9GJNQLPbxiv dailyAugust 2019 12:00amOct2019 12:33pm On Hold: Resume on 12/27/19.Carvedilol 6.25 mg TabletDiscontinued6.25MGPOTwice dailyAugust 2019 12:00amOct2019 12:33pmLevothyroxine 150 mcg VxksmrLwigbkbqicyf594SPBIIEsfuySqawct 2019 12:00Oct2019 12:33pmBumetanide 1 mg JzpxdaDudrssufcahh2ZXFVAwcdnBipfzf 2019 12:00January 04, 2020 12:33pmOn Hold: Resume on 12/26/19.Digoxin 125 mcg (0.125 mg) ZhnlebBopurjxxxhos966DRGNVIiaxuKfcywe 2019 12:00Oct2019 12:33pmMagnesium Oxide 400 mg magnesium LgmomcGqxujmgfgoqo367OTLGOfvapKrxzma 2019 12:00Oct2019 12:33pmOxybutynin Chloride 10 mg Tablet Extended Release 05xiOfustuhweevo76JRUAEzira with lunchAugust 2019 12:00January 04, 2020 12:34pmAzelastine 137 mcg (0.1 %) Aerosol,SprayDiscontinued INTRANASALAugust 2019 12:00amAugust 2019 5:12pmAzelastine- Fluticasone 137-50 mcg/spray [place],Non-RupixkhXzcpmsxiptoy3GBSZCKMLJFPPHJRNxtit dailyAugust 2019 12:00Oct2019 11:02amAcetaminophen (Tylenol) 325 mg NtytyxXgkimqiaqrlo396JLTFUeyzc dailyAugust 2019 12:00amSeptember 2019 9:42amHydroxyzine Pamoate 50 mg IzlcskcZjeviimeeczz02OLXHK0V as needed for Muscle Mxjmp2Tpwfgpxkg 2019 12:00October 2019 12:33pmDocusate Sodium (Dok) 100 mg AcbzqgkBzsujkiqbhvh782FLTZVxphm ozwxq2Mygexxwla 2019 12:00Oct2019 12:33pmHydroxyzine Pamoate 25 mg TypdubuNpyyarjdvnem55 PUDPK1P as needed for Muscle Cbonu8Yyrcrbtvl 2019 12:00amOctober 2019 12:33pmOxycodone-Acetaminophen (Percocet) 5-325 mg tabletDiscontinued1 - 2TABPO EVERY 4-6 HOURS as needed for ldyu829Pibtftzxe 2019October 2019 12:33pmIpratropium-Albuterol 0.5 mg-3 mg(2.5 mg base)/3 mL solution for mughwspqmvkuZqvywl5CEUTUXXEUJCGEihie times dailyOctober 2024 12:00am Complies with drug therapyBudesonide 0.5 mg/2 mL suspension for nebulization Active0.5MGINHALATIONTwice dailyOctober 2024 12:00amComplies with drug therapyAcetaminophen (Acetaminophen Extra Strength) 500 mg jtxhrlXhcqdc2524MNOV Three times daily as needed for painOctober 2024 12:00amComplies with drug therapyApixaban (Eliquis) 5 mg yhqnumLfoewdzyjwak5AKJFLvjhg dailyOctober 2024 12:00amOctober 2024 11:08amDiltiazem Hcl 30 mg QkatrpEftawx89VGJU Twice enaqv0744JxampumDecember 18, 2024 12:00amUnknownErtapenem 1 gram Recon Soln Guppiw0HEVXG44M37Hwluyzb 14th, 2025 12:00amOctober 2024 12:00amUnknown Pramipexole 0.25 mg tabletActive0.25MGPODaily as needed for tremor(s)030Oct2024 11:08amComplies with drug therapyPotassium Chloride 20 mEq Tablet Extended DuznvbgUtjfetfpnwsq60WNIVKAkxcwaoCklftyw 16th, 2020 12:00amOct2019 12:33pmOn Hold: Resume on 12/26/19.Sulfamethoxazole-Trimethoprim (Bactrim Ds) 800-160 mg VeriofVxganwywetnl8IBHYZO95LGcvlfmj 2019 12:00am December 25, 2019 1:37pmAtorvastatin 40 mg LnrqrrQjobhrxjkhdj84QWZLYhnuz at tknrplv71Llknxob 30th, 2020 12:00amApril 2023 11:57amCarvedilol 6.25 mg TabletDiscontinued6.25MGPOTwice daily with kllhk16EknmjuwJanuary 04, 2020 12:00am January 16, 2022 1:30pmHydroxyzine Pamoate 50 mg VldpqljXjkvvtetzhok36GVZWV1S as needed for Muscle Qcrtr2DiakoqfJanuary 04, 2020 12:002021 2:10pm Acetaminophen 500 mg FluzkfJywikskcdnht8922VXKMQjdho rcmss84WqjktiuJanuary 04, 2020 12:00amApril 2023 11:56amOxycodone-Acetaminophen 5-325 mg Tablet Cjinnccikfnd4PDJJRV9G as needed for Mild Pxji652PcxrxrrJanuary 04, 2020Nov2021 1:30pmFolic Acid-Vit B6-Vit B12 ([place]) 2.5-25-1 mg XvzhbbCqdrwrpnmsge5QYV AUAtgnk12ZukmrarJanuary 04, 2020 12:[facility]2021 2:09pmPotassium Chloride (Klor-Con M20) 20 mEq Tablet,Er Particles/QeugcduxTzodycnwtivo88DGKUFFmtpn01 January 04, 2020 12:00[facility] 2021 2:35pmMagnesium Oxide 400 mg (241.3 mg magnesium) CbqsnoBwjcaucygbke659SXCXEkiwx69Zfwwpek 30th, 2020 12:00amApril 2023 11:57amLevothyroxine (Synthroid) 150 mcg HdssnnRskboaljnwsw590JKUOM DAILY@815059Rvhxuvi 2019 12:00amApril 2023 11:57amDocusate Sodium (Dok) 100 mg FcouldpMcdcxwdyfsqj799IPHTYyayd whkpq60AbwckbpJanuary 04, 2020 12:00am June 06, 2023 11:57amOxybutynin Chloride 5 mg Tablet Extended Release 24hr Ifijkgvyecga46ZZMDEqolh with zpwzn50JvrdhdbJanuary 04, 2020 12:002021 2:36pmBumetanide 1 mg YmxhxhNzhbzyhktamj9EWUMHEJFC@983267WcqaczoJanuary 04, 2020 12:00[facility] 2021 2:35pmAllopurinol 300 mg BjnyrlNifaupxiqypp076JJQF Yizmo26HimdadnJanuary 04, 2020 12:00amApril 2023 11:57amDigoxin 125 mcg (0.125 mg) ChcuisDfthuxngllmq113YUGWZZazqm63Irlaync 30th, 2020 12:002021 1:30pmFluticasone Propionate 50 mcg/actuation [place],SuspensionDiscontinued1 SPRAYNARES-BOTHTwice omkki06DakisyaJanuary 04, 2020 12:002021 2:10pm Hydroxyzine Pamoate 25 mg TbeesghSlveyejvpgwp80KMEJY8F as needed for Muscle Oarnk95CduebwvJanuary 04, 2020 12:002021 2:10pmDiclofenac Sodium 1 % CsvOtdhjbtpjyyw2ORKWNGWRBQuuih times daily as needed for djxt66AoahkpvJanuary 04, 2020 12:[facility] 2021 2:10pmMelatonin 5 mg PhhdgiAzkadfzkqroe7PAUKSgwhl at hpepslt60MuonfdiJanuary 04, 2020 12:00[facility]2021 2:09pmLactulose 20 gram/30 mL OeiyyabsYheeobodrbff20CQJXWkuki as needed for Amdphtvgckqv686Uzzfpxk 30th, 2020 12:00[facility] 2021 2:11pmMirabegron (Myrbetriq) 25 mg Tablet Extended Release 24 SuEurgbrtepoms19OGSEVaesk with uqegx69WkpmdauJanuary 04, 2020 12:00[facility] 2021 2:36pmApixaban (Eliquis) 5 mg KmfgbrRhxoownrxejx6CHTR Twice rmdug36ThtwafaJanuary 04, 2020 12:00amApril 2023 11:57amSacubitril- Valsartan (Entresto) 24-26 mg AkesxaLffiwzvxntks8LFPQNXhaat xoabb67RvnxxhfJanuary 04, 2020 12:00[facility]2021 1:30pmTrazodone 50 mg iulzufTepifiwvygeq25JIBC BedtimeJanuary 09, 2022 12:00amApril 2023 11:57amEszopiclone 3 mg tablet Pdtjihywqoxo4HLXOIeroafrNkkybwwi 5th, 2022 12:00amApril 2023 11:57am Fluticasone Propionate 50 mcg/actuation spray,rhkfizatuvVunsfqmwedxe2SJJSW NARES-BOTHDaily at bedtime as needed for Nasal CongestionNovember 2021 2:10pmApril 2023 11:57amPotassium Chloride (Klor-Con M20) 20 mEq tablet,ER particles/pirkaenkInhtcncagulj76DSCFJTklde eveningNovember 2021 2:35pmApril 2023 11:57amBumetanide 1 mg tabletDiscontinued0.5MGPODAILY@0800Nov2021 2:35pm[facility] 1:30pmSulfamethoxazole-Trimethoprim (Bactrim Ds) 800-160 mg KmqbrcZnpcpyinzabr6BOCKZUadrv dailyNovember 2021 12:00am January 16, 2022 1:30pmstarted 01/08/22 for 7 daysOxycodone-Acetaminophen 5- 325 mg ZyytdjDniafobqghcy6NXWXCZ8N as needed for Moderate Cnzp10Wofecdqy pr2023 11:57amBumetanide 1 mg TwctfaBfclpmusgfjg5KCZKZVFSB@74411 January 16, 2022 1:00amApril 2023 11:57amClindamycin Hcl (Cleocin Hcl) 300 mg wkwrlarSczuzbqsafgr480SEBALvty times dailyJanuary 2024 1:00amMay 2024 4:01pmMetolazone 5 mg leqkbdTujnnrkhxqsu7WWPRVlqqhSmndpma 2024 1:00amJanuary 2024 1:33pmCarvedilol 6.25 mg tabletDiscontinued6.25MGPOTwice dailyJanuary 2024 1:00amJanuary 2024 1:33pmmust administer with a meal/foodAcetaminophen (Acetaminophen Extra Strength) 500 mg tabletDiscontinued 500MGPOThree times dailyJanuary 2024 1:00amMay 2024 1:27pmBumetanide 1 mg kglpmpOwvzjg2ONBKDcukqMdsbhnm 2024 1:00amComplies with drug therapy Carvedilol 3.125 mg TabletDiscontinued3.125MGPOTwice dthpe3233Bboaykc 2024 1:00amJuly 2024 3:14pmApixaban (Eliquis) 2.5 mg TabletDiscontinued2.5MGPO Twice fiohr0967Hygkdfg 2024 1:00amMay 2024 4:01pmTamsulosin 0.4 mg CapsuleDiscontinued0.9BQYZInplp4211Uaywokr 2024 1:00amMay 2024 4:01pm Oxycodone-Acetaminophen 5-325 mg dpbnelMzvxfjrzcpvu1AMROKUtwir 6 hours as needed for ojbm74Bkjdpbr 2024 1:45pmMay 2024 1:26pmPotassium Chloride (Klor- Con M20) 20 mEq tablet,ER particles/thrvbjojHajrpc97ATYOWPuhrk at bedtimeMay 2024 12:00amComplies with drug therapyDoxycycline Hyclate 100 mg tablet Mcjwgupjzrcz555KCIJEvowx dailyMay 2024 12:00amMay 2024 1:26pmend date 07/14/2024Ipratropium-Albuterol 0.5 mg-3 mg(2.5 mg base)/3 mL solution for wjlpfuhkmqvkZsgnipdkloie4FRXTFHCDPLKPOnqro 6 hours as needed for shortness of breath or wheezingJuly 12, 2024 12:00amJuly 2024 1:59pmApixaban (Eliquis) 2.5 mg NmjjueKdpkwspvzvsi4BZOETzmsf dailyMay 2024 12:00amOctober 2024 11:08amCefepime 2 gram Recon MgwnLtzgkttmadvu2DARZM61M877Mom 2024 12:00am September 18, 2024 3:14pmVancomycin 1,000 mg Recon NpbbTiykggaavslr8ANHII26B35Vym 2024 12:00amJuly 2024 3:16pmPolyethylene Glycol 3350 (Healthylax) 17 gram Powder In IhzulcGqaqmfiwafdm26JWGKLhftw jnuse2NneJuly 17, 2024 12:00amAugust 2024 7:29pmAcetaminophen (Acetaminophen Extra Strength) 500 mg tablet Fgnpyuglobtm377DZAUCdxoy times daily as needed for ykft66McnJuly 17, 2024 1:26pm December 12, 2024 3:21pmOxycodone-Acetaminophen 5-325 mg nolmhjDkqcnsukmxlj2GJT POEvery 6 hours as needed for rzlk45Mvp 2024 7:29pm Eszopiclone (Lunesta) 3 mg fetmceKzgspc4YVCRKovfi at bedtimeAuunm cancer centert 2024 12:00amComplies with drug therapyPramipexole 0.25 mg tabletDiscontinued0.25MGPO Daily as needed for tremor(s)October 05, 2024 12:00amOctober 2024 11:08am Atorvastatin 40 mg fxlgqwVqmvju35GXUJTtftw at bedtimeCarilion Tazewell [facility] Complies with drug therapyOxycodone 5 mg HolohlZiksnaxiqlor8ERUZTwmla 4 hours as needed for Severe Kyty462Dxzxki 2024Oct2024 3:19pmLinezolid 600 mg eatxszNwyqcuznlsxw969MQEROvgiq vxfre899QmjqecOctober 10, 2024 12:00amOctober 2024 3:20pmApixaban 5 mg tbrkeoFprvkobdefhe2JGLCWivrh dailyApril 2023 12:00amJanuary 2024 1:33pmMagnesium Oxide 400 mg magnesium rnfnsqkWllzrc627 MGPODaily at bedtimeApr2023 12:00amComplies with drug therapyBumetanide 1 mg bsccdjBxmcaxxfsywo0SSVQVfcbrItdkz 2023 12:00amApril 2023 3:49pm Docusate Sodium 100 mg dnkfeedWnayibgcmpnk049MAZPDkdkz as neededApril 2023 12:00amJanuary 2024 11:13amPotassium Chloride 20 mEq tablet,ER particles/ivfpgtumBxikpdelflyt03VJKDOLmahbSxfse 2023 12:00amApril 2023 1:46pmOxycodone-Acetaminophen 5-325 mg uzdagiQjtqkmbxbpcq1UVHKSBetvu 6 hours as needed for painApril 2023 12:00amJanuary 2024 1:45pmFreeTextSi tablet as needed Orally every 6 hrs; Note: Source Status: TakingDr. Brambila PRN; Provider: Daily Wiggins ( )Trazodone 50 mg njsmzeLroppqixpzlw17KYHW Daily at bedtime as neededApril 2023 12:00amApril 2023 3:49pm Atorvastatin 40 mg panskcZtlhqmyjzgln98CPXLCbbuxMdnjn 2023 12:00amJune 2023 2:09pmOxybutynin Chloride 10 mg tablet extended release 24hr Gxxfcheakaoq96TASFGbkvqMhvdv 2023 12:00amJuly 2023 9:55amMultivitamin (Daily Multi-Vitamin) siqyppYzksmzdtjpot7ZTWNNVaxdiSqabs 2023 12:00am March 10, 2024 11:14amAcetaminophen (Tylenol) 325 mg ifybrcYicswdupgjun866PH POEvery 6 hours as neededApril 2023 12:00amJanuary 2024 11:11am Eszopiclone 3 mg efymfjJgirxxekbysi8CKFVFatfb at bedtimeApril 2023 12:00am June 06, 2023 3:49pmNystatin 100,000 unit/gram fdzfgoEbxrdbuiwlkr7ZNCTRV TOPICALTwice dailyApril 2023 12:00amJanuary 2024 11:14amFreeTextSi application Externally Twice a day; Note: Source Status: Taking; Refills: 3; Provider: Daily Wiggins PMupirocin 2 % anazsmcdQlyrjravxvtj9YBWAGBAHGNOMYObnad dailyApril 2023 12:00amOctober 2023 12:07pmFreeTextSi application Externally Twice a day; Note: Source Status: Taking; Refills: 1; Qty: 60gram; Provider: Daily Wiggins PLevothyroxine (Synthroid) 150 mcg zinxmzWrtvfxtawwgf427ENM POEvery morningApril 1st, 2024 12:00amJuly 2023 9:53amAllopurinol 300 mg vbkpemWpatkhhpxctv209CIYDXisauWpplz 2023 12:00amApril 2023 2:17pm Allopurinol 300 mg lnaigdStyhzyhrltwq862LRMOMopvx93Toshf 2023 2:16pmApril 2023 2:18pmAllopurinol 300 mg kdyqqoHuhmht410USMONhfbg74Eqzcx 2023 2:18pmComplies with drug therapy Immunizations Immunization Event Date Not Given Reason Dose Number [employer] Lot Number Vaccine Information Statement (VIS) Detail Administration Location COVID-19 mRNA-1273 (Moderna) April 14, 2020 COVID-19 mRNA-1273 (Moderna)April 30OVID-19 mRNA-1273 (Moderna)May 05OVID-19 mRNA-1273 (Moderna)May 28OVID-19 mRNA-1273 (Moderna)February 18OVID-19 mRNA Bivalent Booster (Moderna)December 24, 2021Fluzone TIV High-Dose 65YR+December 06, 2017Fluzone TIV High-Dose 65YR+December 17, 2022Fluzone QIV High-Dose 65YR+December 22, [id number] [facility]-Dose 65YR+December 24, 2021 Influenza, trivalentSeptember 2018influenza, unspecified formulation December 17, 2022Trivalent Influenza VaccineOctober 2017Trivalent Influenza VaccineSeptember 2018Trivalent Influenza VaccineOctober 2021Trivalent Influenza VaccineOctober 2019 Medical Equipment Device Date Implanted Device Details ART SURF LEFT 11MM 10-11EF November 05, 2019 Orthopaedic cement, non-medicatedAugust 2019UDI: ()[id number] Issuing Agency: [employer] Device Id: [id number] Expiration Date: 2023-12-05 Lot Number: [id number] cement, non-medicatedAugust 2019UDI: ()[id number] Issuing Agency: [facility] Device Id: [id number] Expiration Date: 2023-12-05 Lot Number: [id number] knee femur prosthesisAugust 2019UDI: ()[id number] Issuing Agency: [facility] Device Id: [id number] Expiration Date: 2029-03-06 Lot Number: [id number] knee tibia prosthesis, metallicAugust 2019 EDITH: ()[id number] Issuing Agency: [facility] Device Id: [id number] Expiration Date: 2029-06-04 Lot Number: [id number] patella prosthesisAugust 2019UDI: ()[id number] Issuing Agency: [facility] Device Id: [id number] Expiration Date: 2027-09-04 Lot Number: [id number] Procedures Procedure Date Performed Status CT lumbar spine wo con October 31, 2024 11:02am completed XR lumbar spine 6V w bending October 31, 2024 1 1:02am completed CT head/brain wo con October 31, 2024 11:02am c ompleted XR dexa axial skeleton November 29, 2024 11:2 8am completed MR lumbar spine wo/w con December 04, 2024 9: 48am completed CT head/brain wo con December 12, 2024 12:39pm c ompleted CT cervical spine wo con December 12, 2024 12:39 pm completed XR chest 2V* December 12, 2024 12:39pm comple fern Urine Culture December 12, [address] facial bones wo con October 05, 2024 6:04pm c ompleted CT head/brain wo con October 05, 2024 6:04pm com pleted CT cervical spine wo con October 05, 2024 6:04pm completed CT head/brain wo con October 06, 2024 9:00am com pleted CT head/brain wo con October 07, 2024 9:00am com pleted CT head/brain wo con October 06, 2024 7:32pm com pleted XR chest 1V portable October 06, 2024 7:34pm com pleted Blood Culture October 06, 2024 completed Blood Culture October 06, 2024 completed Urine Culture October 07, 2024 completed Urine Culture October 06, 2024 completed Nasal Screen MRSA/MSSA October 06, 2024 complete d Relevant Diagnostic Tests and/or Laboratory Data Laboratory Results Test Collection Date/Time Result Date/Time Result Interpretation Reference Range Result Comment Performing Site Urine Collection Type October 06, 2024 7:55pm Se ptember 2024 11:06am See comment naUrine ColorAugust 2024 7:55pmSeptember 2024 11:06amlightyellowUrine AppearanceAugust 2024 7:55pmSeptember 2024 11:06amclearUrine Glucose (UA)October 06, 2024 7:55pmSeptember 2024 11:06amNormalUrine Bilirubin October 06, 2024 7:55pmSeptember 2024 11:06amNegUrine KetonesAugust 2024 7:55pmSeptember 2024 11:06amNegUrine Specific GravityAugust 2024 7:55pmSeptember 2024 11:06am1.018Urine Occult BloodAugust 2024 7:55pm December 03, 2024 11:06amSee commentnot doneUrine pHAugust 2024 7:55pm December 03, 2024 11:06am5.5Urine ProteinAugust 2024 7:55pmSeptember 2024 11:06amTraceUrine UrobilinogenAugust 2024 7:55pmSeptember 2024 11:06amNormalUrine NitriteAugust 2024 7:55pmSeptember 2024 11:06amPositiveUrine Leukocyte EsteraseAugust 2024 7:55pmSeptember 2024 11:06am4+Corrected White Blood CountJuly 2024 11:40amJuly 2024 2:10pm4.5 10*3/uL4.1-10.5F[facility] [id number] [address] [facility] 13087Vsieqqzcm White Blood CountAugust 2024 6:57amAugust 2024 7:13am6.0 10*3/uL4.1-10.5FBl[facility] [id number] [address] [facility] 64370Zfbbgmeqi White Blood CountOctober 2024 11:42amOctober 2024 12:26pm3.6 10*3/uLBelow low normal4.1-10.5FBl[facility] [id number] [address] [facility] 11100Ctavklytxfx WBC CountJuly 2024 11:40amJuly 2024 2:10pm4.5 10*3/uL4.1-10.5FBl[facility] [id number] [address] [facility] 36436Ptvzxnhqnfg WBC CountAugust 2024 7:30pmAugust 2024 7:55pm5.7 10*3/uL4.1-10.5FBl[facility] [id number] [address] [place] [address] 71106Olbhlnqcykq WBC CountOctober 2024 11:42amOctober 2024 12:26pm3.6 10*3/uLBelow low normal4.1-10.[address] [place] [address] Ctr [id number] [address] [place] [address] 98951Tfz Blood CountJuly 2024 11:40amJuly 2024 2:10pm 2.99 10*6/uLBelow low normal3.90-5.60[facility] [id number] [address] [facility] [id number] Blood CountAugust 2024 6:57amAugust 2024 7:13am 2.63 10*6/uLBelow low normal3.90-5.60[facility] [id number] [address] [place] [address] 73203Qgq Blood CountOctober 2024 11:42amOctober 2024 12:26pm3.00 10*6/uLBelow low normal3.90-5.60[facility] [id number] [address] [facility] [id number] 2024 11:40amJuly 2024 2:10pm9.0 g/dL Below low trdiew43.0-17.0[facility] [id number] [address] [facility] 13849RdopphtlrrTwxgkl 2024 6:57amAugust 2024 7:13am8.0 g/dLBelow low .0-17.0[facility] [id number] [address] [facility] 98430DhyvtkppyyWbytnar 2024 11:42amOctober 2024 12:26pm 8.6 g/dLBelow low .0-17.0[facility] [id number] [address] [place] [address] 41080TgrnkwrdooSowq 2024 11:40amJuly 2024 2:10pm27.6 % Below low rocawe97.8-50.0[facility] [id number] [address] [place] [address] 26530JmolygeutcQoesfa 2024 6:57amAugust 2024 7:13am24.1 % Below low ahcksg77.8-50.0[facility] [id number] [address] [place] [address] 11475PqlpeqhgdsFjrpnle 2024 11:42amOctober 2024 12:26pm 26.3 %Below low celbqp72.8-50.0[facility] [id number] [address] [place] [address] 09616Iomb Corpuscular VolumeJuly 2024 11:40amJuly 2024 2:10pm92.3 fL83.5-101[facility] [id number] [address] [place] [address] 26107Ypuw Corpuscular VolumeAugust 2024 6:57amAugust 2024 7:13am91.5 fL83.5-101[facility] [id number] [address] [place] [address] 34810Mgpg Corpuscular VolumeOctober 2024 11:42amOctober 2024 12:26pm87.8 fL83.5-101[facility] [id number] [address] [place] [address] 36273Ajzt Corpuscular HemoglobinJuly 2024 11:40amJuly 2024 2:10pm30.0 pg27.5-35.2FBl[facility] [id number] [address] [place] [address] 86108Awjt Corpuscular HemoglobinAugust 2024 6:57amAugust 2024 7:13am30.4 pg27.5-35.2FBl[facility] [id number] [address] [place] [address] 17283Kfsf Corpuscular HemoglobinOctober 2024 11:42amOctober 2024 12:26pm28.6 pg27.5-35.2FBl[facility] [id number] [address] [place] [address] 75570Ssez Corpuscular Hemoglobin ConcentJuly 2024 11:40amJuly 2024 2:10pm32.5 g/dL32.5-35.6FBl[facility] [id number] [address] [place] [address] 47439Zvig Corpuscular Hemoglobin ConcentAugust 2024 6:57am October 08, 2024 7:13am33.2 g/dL32.5-35.6FBl[facility] [id number] [address] [place] [address] 02869Sxio Corpuscular Hemoglobin ConcentOctober 2024 11:42am December 18, 2024 12:26pm32.6 g/dL32.5-35.6FBl[facility] [id number] [address] [place] [address] 55071Nzw Cell Distribution WidthJuly 2024 11:40amJuly 2024 2:10pm17.4 %Above high qyctcw94.0-14.8[facility] [id number] [address] [place] [address] 09836Fmi Cell Distribution WidthAugust 2024 6:57amAugust 2024 7:13am17.7 %Above high zfvgfe96.0-14.8[facility] [id number] [address] [facility] 79141Wlg Cell Distribution WidthOctober 2024 11:42amOctober 2024 12:26pm18.1 %Above high axejiq20.0-14.8[facility] [id number] [address] [facility] 82595Rkvqegpq CountJuly 2024 11:40amJuly 2024 2:26ie315 10*3/pR549-720XzbxvzaqwPrem[facility] Health [facility] [id number] [address] [facility] 03951Qfkzqopl CountAugust 2024 6:57amAugust 2024 7:58tj890 10*3/aF093-423EmlyltsezPrem[facility] Health [facility] [id number] [address] [place] [address] 74710Ynttbwnt CountOctober 2024 11:42amOctober 2024 12:82rm834 10*3/wC450-337PjunryzruPremier Health [facility] [id number] [address] [facility] 38145Jacy Platelet VolumeJuly 2024 11:40amJuly 2024 2:10pm8.2 fL6.6-10.1FBl[facility] [id number] [address] [place] [address] 06170Lbps Platelet VolumeAugust 2024 6:57amAugust 2024 7:13am7.5 fL6.6-10.1FBl[facility] [id number] [address] [place] [address] 67595Qgwx Platelet VolumeOctober 2024 11:42amOctober 2024 12:26pm7.4 fL6.6-10.1FBl[facility] [id number] [address] [place] [address] 15139Vnqjddki Distribution WidthAugust 2024 7:30pmAugust 2024 7:55pm19.41 %0.00-20.00[facility] [id number] [address] [place] [address] 76263Zyieflnv Distribution WidthOctober 2024 12:25pmOctober 2024 12:48pm18.74 %0.00-20.00[facility] [id number] [address] [facility] 21218Qpnyynhjvka (%) (Auto)September 24, 2024 11:40amJuly 2024 2:10pm53.6 %.[facility] [id number] [address] [facility] [place] [address]Jcvnaqfiwii (%) (Auto)October 05, 2024 7:30pmAugust 2024 7:55pm65.2 %.[facility] [id number] [address] [facility] [place] [address]Qixxabmpqns (%) (Auto)December 18, 2024 11:42amOctober 2024 12:26pm65.6 %.[facility] [id number] [address] [facility] [place] [address]Wygkluxfjwz (%) (Auto)September 24, 2024 11:40amJuly 2024 2:10pm29.5 %.[facility] [id number] [address] [facility] [place] [address]Ttowzryodkz (%) (Auto)October 05, 2024 7:30pmAugust 2024 7:55pm19.8 %.[facility] [id number] [address] [facility] [place] [address]Fxdqcrnrehh (%) (Auto)December 18, 2024 11:42amOctober 2024 12:26pm18.6 %.[facility] [id number] [address] [facility] [place] [address]Rtmztibmz (%) (Auto)September 24, 2024 11:40amJuly 2024 2:10pm8.7 %.[facility] [id number] [address] [facility] [place] [address]Uzwpheiit (%) (Auto)October 05, 2024 7:30pmAugust 2024 7:55pm9.9 %.[facility] [id number] [address] [facility] [place] [address]Mmhivgnwf (%) (Auto)December 18, 2024 11:42amOctober 2024 12:26pm8.6 %.[facility] [id number] [address] [facility] [place] [address]Gkuujcdmujz (%) (Auto)September 24, 2024 11:40amJuly 2024 2:10pm7.2 %.[facility] [id number] [address] [facility] [place] [address]Wpxwmjivxft (%) (Auto)October 05, 2024 7:30pmAugust 2024 7:55pm4.7 %.[facility] [id number] [address] [facility] [place] [address]Avhgmnaaldj (%) (Auto)December 18, 2024 11:42amOctober 2024 12:26pm6.5 %.[facility] [id number] [address] [facility] [place] [address]Tcvizugcp (%) (Auto)September 24, 2024 11:40amJuly 2024 2:10pm1.0 %.[facility] [id number] [address] [facility] [place] [address]Hnwxagfxe (%) (Auto)October 05, 2024 7:30pmAugust 2024 7:55pm0.4 %.[facility] [id number] [address] [facility] [place] [address]Krwixaktx (%) (Auto)December 18, 2024 11:42amOctober 2024 12:26pm0.7 %.[facility] [id number] [address] [facility] [place] [address]Muabwnvft RBC Relative Count (auto)September 24, 2024 11:40amJuly 2024 2:10pm0.2 /100{WBC}0-0.5FBl[facility] [id number] [address] [facility] [place] [address]Bktwynpve RBC Relative Count (auto)October 05, 2024 7:30pm October 05, 2024 7:55pm0.2 /100{WBC}0-0.5FBl[facility] [id number] [address] [facility] [place] [address]Kgfinpurx RBC Relative Count (auto)December 18, 2024 11:42am December 18, 2024 12:26pm0.0 /100{WBC}0-0.5FBl[facility] [id number] [address] [facility] 34586Csynpnjzbic # (Auto)September 24, 2024 11:40amJuly 2024 2:10pm2.4 10*3/uL1.8-7.7FBl[facility] [id number] [address] [facility] 80828Rxfjzvamdmg # (Auto)October 05, 2024 7:30pmAugust 2024 7:55pm3.7 10*3/uL1.8-7.7FBl[facility] [id number] [address] [facility] 86[address]Wivqgqiccrt # (Auto)December 18, 2024 11:42amOctober 2024 12:26pm2.4 10*3/uL1.8-7.7FBl[facility] [id number] [address] [facility] 09115Dniyoncspsz # (Auto)September 24, 2024 11:40amJuly 2024 2:10pm1.3 10*3/uL1.00-4.8[facility] [id number] [address] [facility] 48194Xnstgxmynij # (Auto)October 05, 2024 7:30pmAugust 2024 7:55pm1.1 10*3/uL1.00-4.8[facility] [id number] [address] [facility] 68568Ltdpeaghoqp # (Auto)December 18, 2024 11:42amOctober 2024 12:26pm0.7 10*3/uLBelow low normal1.00-4.8[facility] [id number] [address] [facility] 37833Trjvkybcv # (Auto)September 24, 2024 11:40amJuly 2024 2:10pm 0.4 10*3/uL0.0-0.8[facility] [id number] [address] [facility] 13848Rqibrfdrn # (Auto)October 05, 2024 7:30pmAugust 2024 7:55pm0.6 10*3/uL0.0-0.8[facility] [id number] [address] [facility] 62120Gzoiyhpgq # (Auto)December 18, 2024 11:42amOctober 2024 12:26pm0.3 10*3/uL0.0-0.8[facility] [id number] [address] [facility] 18264Cweijtnoevf # (Auto)September 24, 2024 11:40amJuly 2024 2:10pm0.3 10*3/uL0.0-0.45[facility] [id number] [address] [facility] 42347Chmcidzkqeo # (Auto)October 05, 2024 7:30pmAugust 2024 7:55pm0.3 10*3/uL0.0-0.45[facility] [id number] [address] [place] [address] 47771Gdoptybenlo # (Auto)December 18, 2024 11:42amOctober 2024 12:26pm0.2 10*3/uL0.0-0.45[facility] [id number] [address] [place] [address] 66316Fbdkdqfzb # (Auto)September 24, 2024 11:40amJuly 2024 2:10pm 0.0 10*3/uL0.0-0.2FBl[facility] [id number] [address] [facility] 24790Evjcdwnvq # (Auto)October 05, 2024 7:30pmAugust 2024 7:55pm0.0 10*3/uL0.0-0.2FBl[facility] [id number] [address] [place] [address] 59216Oritfbivl # (Auto)December 18, 2024 11:42amOctober 2024 12:26pm0.0 10*3/uL0.0-0.2FBl[facility] [id number] [address] [place] [address] 30597Xrdcrfufosh TimeAugust 2024 7:30pmAugust 2024 8:26pm 26.6 sAbove high normal9.0-12.9A hematocrit value greater than 55% may lead to inaccurate results in coagulation testing. Patientshaving hematocrit values >55% require a special collection tube for coagulation studies. Please contact the laboratory at [phone] for redraw instructions.[facility] [id number] [address] [facility] [address]Bcjgmqplxle TimeOctober 2024 5:39amOctober 2024 6:38am27.3 sAbove high normal9.0-12.9A hematocrit value greater than 55% may lead to inaccurate results in coagulation testing. Patientshaving hematocrit values >55% require a special collection tube for coagulation studies. Please c ontact the laboratory at [phone] for redraw instructions.[facility] [id number] [address] [facility] [address]Yqjqylcir Time International RatioAugust 2024 7:30pmAugust 2024 8:26pm2.4INR Therapeutic Range A) Pre- and Peroperative OAT started two weeks before surgery. NOT HIP SURGERY: 1.5 - 2.5 HIP SURGERY: 2 - 3B) Primary and secondary prevention of venous THROMBOSIS: 2 - 3C) Active venous thrombosis, pulmonary embolismand prevention of recurrent venous thrombosis: 2 - 3D) Prevention of arterial thromboembolismincluding patients with mechanical heart valves: 3 - 4.5[facility] [id number] [address] [facility] [address]673Aermrqyzh Time International RatioOctober 2024 5:39am October 2024 6:38am2.5INR Therapeutic Range A) Pre- and Peroperative OAT started two weeks before surgery. NOT HIP SURGERY: 1.5 - 2.5 HIP SURGERY: 2 - 3B) Primary and secondary prevention of venous THROMBOSIS: 2 - 3C) Active venous thrombosis, pulmonary embolismand prevention of recurrent venous thrombosis: 2 - 3D) Prevention of arterial thromboembolismincluding patients with mechanical heart valves: 3 - 4.5FA[facility] [id number] [address] [facility] 05622Evsxeapyj Partial Thromboplast TimeAugust 2024 7:30pm October 05, 2024 8:26pm41.0 sAbove high ixzhfi58.1-36.5A hematocrit value greater than 55% may lead to inaccurate results in coagulation testing. Patients having hematocrit values >55% require a special collection tube for coagulation studies. Please contact the laboratory at [phone] for redraw instructions. [facility] [id number] [address] [facility] 36569Sigepkcyi Partial Thromboplast TimeOctober 2024 5:39am December 13, 2024 6:38am38.9 sAbove high .1-36.5A hematocrit value greater than 55% may lead to inaccurate results in coagulation testing. Patients having hematocrit values >55% require a special collection tube for coagulation studies. Please contact the laboratory at [phone] for redraw instructions. [facility] [id number] [address] [place] [address] 97409Xdazh ColorAugust 2024 6:40pmAugust 2024 6:51pmYellow YellowPremier Health Miami [facility] [id number] [address] [place] [address] 98885Ysauf ColorOctober 2024 1:19pmOctober 2024 1:38pm ColorlessYellowPremier Health [facility] [id number] [address] [place] [address] 33559Tatpg AppearanceAugust 2024 6:40pmAugust 2024 6:51pm CloudyAbnormal (applies to non-numeric results)ClearPremier [facility] [id number] [address] [place] [address] 75880Kljbt AppearanceOctober 2024 1:19pmOctober 2024 1:38pmClearClearPremier Health [facility] [id number] [address] [place] [address] 41797Utsfs Specific GravityAugust 2024 6:40pmAugust 2024 6:51pm1.0281.001-1.030[facility] [id number] [address] [place] [address] 78939Jdtcz Specific GravityOctober 2024 1:19pmOctober 2024 1:38pm1.0041.001-1.030[facility] [id number] [address] [facility] 43805Ipirl pHAugust 2024 6:40pmAugust 2024 6:51pm5.5 5.0-9.0[facility] [id number] [address] [facility] 49017Srnpy pHOctober 2024 1:19pmOctober 2024 1:38pm5.5 5.0-9.0[facility] [id number] [address] [facility] 33156Mtqjs Leukocyte EsteraseAugust 2024 6:40pmAugust 2024 6:51pm3+Above high normalNegativePremier Health [facility] [id number] [address] [facility] 91875Xymbw Leukocyte EsteraseOctober 2024 1:19pmOctober 2024 1:38pm2+Above high normalNegativePremier Health [facility] [id number] [address] [facility] 52649Jkwfh NitriteAugust 2024 6:40pmAugust 2024 6:51pm NegativeNegativePremier Health [facility] [id number] [address] [facility] 69193Vemzb NitriteOctober 2024 1:19pmOctober 2024 1:38pm NegativeNegativePremier Health [facility] [id number] [address] [facility] 23679Suvyw ProteinAugust 2024 6:40pmAugust 2024 6:57wu205 mg/dLAbove high normalNegativePrem[facility] Health [facility] [id number] [address] [facility] 83774Qozhr ProteinOctober 2024 1:19pmOctober 2024 1:38pm Negative mg/dLNegativePremier Health [facility] [id number] [address] [facility] [id number] Glucose (UA)October 07, 2024 6:40pmAugust 2024 6:51pmNormal mg/dLNormalPrem[facility] [id number] [address] [facility] 31862Fmyzu Glucose (UA)December 12, 2024 1:19pmOctober 2024 1:38pmNormal mg/dLNormalPremier Health [facility] [id number] [address] [facility] 68231Wppwh KetonesAugust 2024 6:40pmAugust 2024 6:51pm TraceAbove high normalNegativePremier Health [facility] [id number] [address] [facility] 12084Njmjj KetonesOctober 2024 1:19pmOctober 2024 1:38pm NegativeNegativePrem[facility] Health [facility] [id number] [address] [facility] 33677Iyauv UrobilinogenAugust 2024 6:40pmAugust 2024 6:51pmNormal mg/dLNormalPrem[facility] [id number] [address] [facility] 16200Vmgnn UrobilinogenOctober 2024 1:19pmOctober 2024 1:38pmNormal mg/dLNormalPrem[facility] [id number] [address] [facility] 73391Iruek BilirubinAugust 2024 6:40pmAugust 2024 6:51pm NegativeNegativePrem[facility] Health [facility] [id number] [address] [facility] 21740Wakvx BilirubinOctober 2024 1:19pmOctober 2024 1:38pm NegativeNegativePrem[facility] [id number] [address] [facility] 01862Obnvo Occult BloodAugust 2024 6:40pmAugust 2024 6:51pm3+Above high normalNegativePrem[facility] Health [facility] [id number] [address] [facility] 13303Qwupe Occult BloodOctober 2024 1:19pmOctober 2024 1:38pm1+Above high normalNegativePrem[facility] [id number] [address] [facility] 11768Hyygp RBCAugust 2024 6:40pmAugust 2024 7:05pm Innumerable [HPF]Above high normal0-4F[facility] [id number] [address] [facility] 13078Azqfc RBCOctober 2024 1:19pmOctober 2024 1:73yb5-0 [HPF]0-4FBl[facility]ard Valley [facility] [id number] [address] [facility] 96647Fvxie WBCAugust 2024 6:40pmAugust 2024 7:05pm Innumerable [HPF]Above high normal0-[facility] [id number] [address] [facility] 21772Bpyhz WBCOctober 2024 1:19pmOctober 2024 1:01qf51-38 [HPF]Above high normal0-[facility] [id number] [address] [facility] 04172Fqrgc Squamous Epithelial CellsAugust 2024 6:40pmAugust 2024 7:05pmN/[facility] [id number] [address] [facility] 32151Pdlnt Squamous Epithelial CellsOctober 2024 1:19pmOctober 2024 1:39pmN/[facility] [id number] [address] [facility] 73327Kmtol BacteriaAugust 2024 6:40pmAugust 2024 7:05pm Rare [HPF]None [facility] [id number] [address] [facility] 67630Lqdsu BacteriaOctober 2024 1:19pmOctober 2024 1:39pm Rare [HPF]None [facility] [id number] [address] [facility] 85365Xjukk Hyaline CastsAugust 2024 6:40pmAugust 2024 7:81jz7-0 [LPF]0-8[facility] [id number] [address] [facility] 17424Esbvf Hyaline CastsOctober 2024 1:19pmOctober 2024 1:95qd6-5 [LPF]0-8[facility] [id number] [address] [facility] 65532Leyfv MucusAugust 2024 6:40pmAugust 2024 7:05pmRare [LPF][facility] [id number] [address] [facility] 02774Pvdca MucusOctober 2024 1:19pmOctober 2024 1:39pmRare [LPF][facility] [id number] [address] [facility] 91472Vddztgu LevelJuly 2024 11:40amJuly 2024 2:37pm80 mg/kJ91-849PHK recommended reference rangeRandom Glucose Reference Range is dependent on time and content of last meal. Glucose of more than 200 mg/dL in a nonstressed, ambulatory subject supports the diagnosisof Diabetes Mellitus. [facility] [id number] [address] [facility] 55983Xdkgftp LevelAugust 2024 6:57amAugust 2024 7:30am95 mg/gP79-881ZMH recommended reference rangeRandom Glucose Reference Range is dependent on time and content of last meal. Glucose of more than 200 mg/dL in a nonstressed, ambulatory subject supports the diagnosisof Diabetes Mellitus. [facility] [id number] [address] [facility] 97538Abvficw LevelOctober 2024 8:13amOctober 2024 9:05am 84 mg/pE61-640THY recommended reference rangeRandom Glucose Reference Range is dependent on time and content of last meal. Glucose of more than 200 mg/dL in a nonstressed, ambulatory subject supports the diagnosisof Diabetes Mellitus. [facility] [id number] [address] [facility] 80416Eebpn Urea NitrogenJuly 2024 11:40amJuly 2024 2:37pm19 mg/dL7-[facility] [id number] [address] [place] [address] 66074Yuaej Urea NitrogenAugust 2024 6:57amAugust 2024 7:30am20 mg/dL7-[facility] [id number] [address] [place] [address] 93321Hudpa Urea NitrogenOctober 2024 8:13amOctober 2024 9:05am20 mg/dL7-[facility] [id number] [address] [place] [address] 88573XfwjowteavDkoi 2024 11:40amJuly 2024 2:37pm1.08 mg/dL0.70-1.30[facility] [id number] [address] [facility] 71156OuccgxaxqkJzlwac 2024 6:57amAugust 2024 7:30am1.28 mg/dL0.70-1.30[facility] [id number] [address] [place] 5376470CreatinineOctober 2024 8:13amOctober 2024 9:05am 1.20 mg/dL0.70-1.30[facility] [id number] [address] [facility] 20418Vtlbnecjw GFR (CKD-EPI)September 24, 2024 11:40amJuly 2024 2:37pm> 60.0 mL/MinPremier Health [facility] [id number] [address] [facility] 11275Slhukfivo GFR (CKD-EPI)October 08, 2024 6:57amAugust 2024 7:30am55.532 mL/MinPrem[facility] Health [facility] [id number] [address] [facility] 00541Lmkpsxejf GFR (CKD-EPI)December 17, 2024 8:13amOctober 2024 9:05am> 60.0 mL/MinPrem[facility] [id number] [address] [facility] 51905Ettsef LevelJuly 2024 11:40amJuly 2024 2:35re917 mmol/K013-649VyajwqzbuPremier Health [facility] [id number] [address] [facility] 83557Itvvsh LevelAugust 2024 6:57amAugust 2024 7:71fa848 mmol/LBelow low ttlirv021-188YprdppskyPremier Health [facility] [id number] [address] [place] [address] 29772Okgsuy LevelOctober 2024 8:13amOctober 2024 9:05am 135 mmol/LBelow low -483EdkpbgqfzPremier Health [facility] [id number] [address] [facility] 22290Ylgfbxkpi LevelJuly 2024 11:40amJuly 2024 2:37pm4.3 mmol/L3.5-5.1FBlanchard Valley [facility] [id number] [address] [facility] 65112Fsjejbocq LevelAugust 2024 6:57amAugust 2024 7:30am 4.1 mmol/L3.5-5.1FBlanchard Valley Health System [facility] [id number] [address] [facility] 73138Zisayasfo LevelOctober 2024 8:13amOctober 2024 9:05am3.8 mmol/L3.5-5.1FBlanchard Valley Health [facility] [id number] [address] [facility] 96700Mzrkiuau LevelJuly 2024 11:40amJuly 2024 2:95ek077 mmol/R93-816FxnjoblbgPremier Health [facility] [id number] [address] [facility] 32775Jurajsml LevelAugust 2024 6:57amAugust 2024 7:30am98 mmol/B99-670VulqvxwcvPremier Health [facility] [id number] [address] [place] [address] 13330Lxrpkolp LevelOctober 2024 8:13amOctober 2024 9:24zz551 mmol/F23-569BteiinqnfPremier Health [facility] [id number] [address] [place] [address] 79048Tytphh Dioxide LevelJuly 2024 11:40amJuly 2024 2:37pm29.5 mmol/L21.0-31.0[facility] [id number] [address] [place] [address] 18278Ebtain Dioxide LevelAugust 2024 6:57amAugust 2024 7:30am27.5 mmol/L21.0-31.0[facility] [id number] [address] [place] [address] 84952Xhhbmd Dioxide LevelOctober 2024 8:13amOctober 2024 9:05am26.3 mmol/L21.0-31.0[facility] [id number] [address] [facility] 35135Rghfy GapJuly 2024 11:40amJuly 2024 2:37pm9.8 mEq/L 6.0-15.0[facility] [id number] [address] [place] [address] 80219Qupby GapAugust 2024 6:57amAugust 2024 7:30am9.6 mEq/L6.0-15.0[facility] [id number] [address] [place] [address] 69363Ejoas GapOctober 2024 8:13amOctober 2024 9:05am9.5 mEq/L6.0-15.0[facility] [id number] [address] [place] [address] 14194Hnbrnja LevelJuly 2024 11:40amJuly 2024 2:37pm8.7 mg/dL8.6-10.3FBl[facility]ard Valley Health System [facility] [id number] [address] [place] [address] 89503Upszlcu LevelAugust 2024 6:57amAugust 2024 7:30am8.6 mg/dL8.6-10.3FBlanchard Valley Health System [facility] [id number] [address] [place] [address] 05038Hshumrf LevelOctober 2024 8:13amOctober 2024 9:05am 8.4 mg/dLBelow low normal8.6-10.3FBlanchard Valley [facility] [id number] [address] [place] [address] 88253Knbwrkoak LevelAugust 2024 6:57amAugust 2024 7:30am 2.1 mg/dL1.9-2.7FBl[facility]ard Valley [facility] System [facility] [id number] [address] [place] [address] 42553Asylvoqfq LevelOctober 2024 5:39amOctober 2024 6:37am 1.8 mg/dLBelow low normal1.9-2.7FBlanchard Valley Health System [facility] [id number] [address] [place] [address] 55530Ysnpu ProteinAugust 2024 7:30pmAugust 2024 8:13pm6.7 g/dL6.4-8.9[facility] [id number] [address] [facility] 33109Emagz ProteinOctober 2024 6:23amOctober 2024 7:46am 6.6 g/dL6.4-8.9[facility] [id number] [address] [facility] 10751NcsnrueVlgndu 2024 7:30pmAugust 2024 8:13pm3.5 g/dL 3.5-5.7FBlanchard Valley Health System [facility] [id number] [address] [facility] 59123JhojtspNuuumrw 2024 6:23amOctober 2024 7:46am3.4 g/dLBelow low normal3.5-5.7FBlanchard Valley Health System [facility] [id number] [address] [facility] 05137XrapsnfyLocagf 2024 7:30pmAugust 2024 8:13pm3.2 g/dL [facility] [id number] [address] [facility] 99610QerhrnkxWejwhej 2024 6:23amOctober 2024 7:46am3.2 g/dLPremier Health Miami Valley [facility] [id number] [address] [facility] 44758Jbxoktn/Globulin RatioAugust 2024 7:30pmAugust 2024 8:13pm1.1FBlanchard Valley Health System [facility] [id number] [address] [place] [address] 79039Qvmleiy/Globulin RatioOctober 2024 6:23amOctober 2024 7:46am1.1FBlanchard Valley Health System [facility] [id number] [address] [place] [address] 64133Cjzih BilirubinAugust 2024 7:30pmAugust 2024 8:13pm 0.6 mg/dL0.3-1.0[facility] [id number] [address] [facility] 58206Bmfud BilirubinOctober 2024 6:23amOctober 2024 7:46am0.8 mg/dL0.3-1.0[facility] [id number] [address] [facility] 60860Oalvvzzao Amino Transf (AST/SGOT)October 05, 2024 7:30pmAugust 2024 8:13pm16 U/B59-83UogdfrxsdPremier Health [facility] [id number] [address] [facility] 12508Aurjokqof Amino Transf (AST/SGOT)December 15, 2024 6:23am December 15, 2024 7:46am23 U/Z58-61MxsycbqjxPremier Health [facility] [id number] [address] [facility] 75960Itupnim Aminotransferase (ALT/SGPT)October 05, 2024 7:30pm October 05, 2024 8:13pm6 U/LBelow low normal7-52[facility] [id number] [address] [place] [address] 10640Bdwyskv Aminotransferase (ALT/SGPT)December 15, 2024 6:23am December 15, 2024 7:46am10 U/L7-52[facility] [id number] [address] [place] [address] 15338Mgcywxzj PhosphataseAugust 2024 7:30pmAugust 2024 8:23lp206 U/LAbove high uqafal79-986CyxtapexpPremier Health [facility] [id number] [address] [place] [address] 41850Tyilnitn PhosphataseOctober 2024 6:23amOctober 2024 7:46am99 U/X19-238DzbwdxkugPremier Health [facility] [id number] [address] [place] [address] 20724Diix LevelOctober 2024 5:39amOctober 2024 5:38pm11 ug/dLBelow low xcsury66-807JqmtbkhfgPrem[facility] Health [facility] [id number] [address] [place] [address] 61682Nduzb Iron Binding CapacityOctober 2024 5:39amOctober 2024 5:41yz319 ug/dLBelow low tkocrp836-579QxdhrmfnhPremier Health [facility] [id number] [address] [place] [address] 60946Fbnt SaturationOctober 9th, 2025 5:39amOctober 2024 5:38pm 5.4 %Below low -71IvapnmlszPremier Health [facility] [id number] [address] [facility] 09101TpsogsaftkpLlytbqv 2024 5:39amOctober 2024 5:90jo622 mg/dLBelow low byktsw168-252NsqcjxlitPremier Health [facility] [id number] [address] [facility] 36872JugzjleaXirlfyp 2024 5:39amOctober 2024 6:15fo978.5 ng/mLAbove high uhywti88.9-336.2FBlanchard Valley Health System [facility] [id number] [address] [facility] 92399Fnzjjzcl I High SensitivityOctober 2024 5:39amOctober 2024 6:44am10 ng/L0-20The Troponin units of report have been changed to meet the Chest Pain Accreditation requirement, element EC5.M1l2. Troponin units are changed from pg/ml to ng/L. Also, the decimal is removed and results are in whole numbers.[facility] [id number] [address] [facility] 93726Z-Ygti Natriuretic PeptideOctober 2024 12:25pmOctober 2024 3:71gg428.0 pg/mLAbove high normal5-100[facility] [id number] [address] [facility] 63398Xylcvouqper LevelOctober 2024 5:39amOctober 2024 6:37am89 mg/dLBelow low yrhxzt123-664Nxse less than 200 mg/dl low riskChol 201- 239 mg/dl borderline riskChol 240 mg/dl and greater high riskPremier Health [facility] [id number] [address] [facility] 63679SMH CholesterolOctober 2024 5:39amOctober 2024 6:37am 43 mg/qY88-46XVE CHOL ATP-III CLASSIFICATION Cardiovascular RiskHDL > or equal to 60 mg/dL LOWHDL < 40 mg/dL [facility] [id number] [address] [facility] 73525Hhcwanfuizztl LevelOctober 2024 5:39amOctober 2024 6:37am57 mg/dL0-149TRIG ATP III CLASSIFICATIONTRIG less than 150 mg/dL NormalTRIG 150-199 mg/dL Borderline highTRIG 200-500 mg/dL High TRIG greater than 500 mg/dL Very highStandard traceable to the Center for Disease Conrtrol and Prevention (CDC) test method.[facility] [id number] [address] [facility] 21277CKF Cholesterol, CalculatedOctober 2024 5:39amOctober 2024 6:37am35 mg/dL0-100LDL ATP III CLASSIFICATIONLDL less than 100 mg/dL OptimalLDL 100-129 mg/dL Near or above zeseociTHK314-291 mg/dL Borderline highLDL 160-189 mg/dL HighLDL greater than 189 mg/dL Very highPremier Health Miami [facility]tr [id number] [address] [place] [address] 55286MKCU CholesterolOctober 2024 5:39amOctober 2024 6:37am11 mg/dLPremier Health [facility] [id number] [address] [place] [address] 69439Rsnjlfsmqij/HDL RatioOctober 2024 5:39amOctober 2024 6:37am2.1<5.0[facility] [id number] [address] [place] [address] 38635Dkkkphp B12 LevelOctober 2024 5:39amOctober 2024 6:32ko508 pg/zZ654-287HwafvnspwPremier Health [facility] [id number] [address] [place] [address] 26273TdanddLgnddzw 2024 5:39amOctober 2024 6:03pm9.1 ng/mL >5.9Folate reference range: >5.9 ng/mlThe WHO technical consultation on folate and vitamin n24mxfqmzpbymlb has determined that folate concentrations lessthan 4 ng/ml are considered deficient.[facility] [id number] [address] [facility] 76292Zywmmvsr Creatinine Clearance (ChemJuly 2024 11:40amJuly 2024 2:37pmN/AFBlanchard Valley Health System [facility] [id number] [address] [place], [place] [address]y [place] [address]Dcyfkpmi Creatinine Clearance (ChemAugust 2024 6:57am October 08, 2024 7:30am40.92[facility] [id number] [address] [facility] 68064Yvuevwky Creatinine Clearance (ChemOctober 2024 8:13am December 17, 2024 9:05am47.08[facility] [id number] [address] [facility] 27215Nzumatnjji C1zIdcxpjiDecember 13, 2024 5:39amOctober 2024 1:30pm 5.5 %4.3-5.6Increased risk for diabetes: 5.7 - 6.4diabetes: >6.4glycemic control for adults with diabetes: <7.0[facility] [id number] [address] [facility] 99690Qyesezyvd Average GlucoseDecember 13, 2024 5:39amOctober 2024 1:04ad924 mg/dLPremier Health Miami [facility] [id number] [address] [facility] 75034Azxdnyy GlucoseAugust 2024 11:03pmAugust 2024 11:04pm 102 mg/dLRandom Glucose Reference Range is dependent on time and content of last meal. Glucose of more than 200 mg/dL in a nonstressed, ambulatory subject supports the diagnosis of Diabetes Mellitus.Point of Care testingBedside Glucose December 17, 2024 8:59amOctober 2024 9:69xx092 mg/dLRandom Glucose Reference Range is dependent on time and content of last meal. Glucose of more than 200 mg/dL in a nonstressed, ambulatory subject supports the diagnosis of Diabetes Mellitus.Point of Care testingBedside Glucose CommentDecember 17, 2024 8:59amOctober 2024 9:92jxUst8: cleaned meterPoint of Care testing Microbiology Results Procedure Source Result Collection Date/Time Result Date/Time Result Comment Performing Site Blood Culture Blood, Left Hand NO GROWTH 5 DAYS October 06, 2024 7:47pm October 11, 2024 7:57pm [facility] [id number] [address] [facility] 65592Zdvzh CultureBlood, Left WristNO GROWTH 5 DAYSAugust 2024 8:16pmAugust 2024 8:22pmPremier Health [facility] [id number] [address] [facility] 44435Gymjy CultureUrine, [place] CatheterEnterococcus faecalisAugust 2024 7:55pmAugust 2024 1:37pmPremier Health Miami [facility] [id number] [address] [facility] 09280Jvwri CultureUrine, FoleyNo Growth 2 DaysAugust 2024 6:40pmAugust 2024 11:34amPremier Health Miami [facility] [id number] [address] [place] [address] 14327Mswjq CultureUrine, [place] CatheterKlebsiella pneumoniae (ESBL) December 12, 2024 1:19pmOctober 2024 9:21amPremier Health [facility] [id number] [address] [place] [address] 66831Fpniy Screen MRSA/MSSANasalAugust 2024 11:05pmAugust 2024 12:46amPremier Health [facility] [id number] [address] [place] [address] 9[address] Diagnostic Imaging Reports Author Shaquille Mahoney [facility] HealthReport Date/TimeOctober 2024 1:46pm [facility] Main [place] [address] [place] [address] XRay Report Signed Patient: Irineo Mendes Jr MR# : [id number] : 1940 Acct:[id number] Age/Sex: 84 / M ADM Date: 5 Loc: ER Room: Type: [facility] ER Attending Dr: Copies to: Sree Thao DO~ Ordering Provider: Sree Thao DO Date of Service: 12/12/24 XR/XR chest 2V*: Fall XR chest 2V* 12/12/2024 1:37 PM SIGNS AND SYMPTOMS: ^Fall PROTOCOL: Frontal and lateral graphs of the chest COMPARISON: 07/16/2024 FINDINGS: The trachea is midline. Atherosclerotic changes are present in the thoracic aorta. There is cardiomegaly. The lung parenchyma is clear. The bony thorax is intact. Degenerative changes are noted in the shoulders and thoracic spine. Postoperative changes are noted in the right shoulder. XR/XR chest 2V* IMPRESSION: No acute cardiopulmonary pathology. Additional chronic findings are noted as above. Impression dictated by: Shaquille Mahoney M.D. 12/12/2024 1:46 PM Dictation Location: [place] [address] Transcribed By: [facility] 12/12/24 1346 Dictated By: Shaquille Mahoney II, MD 12/12/24 1342 Signed By: <Electronically signed by Shaquille Mahoney II, MD in [place]> 12/12/24 1346 Author Shaquille Mahoney [facility] HealthReport Date/TimeOctober 2024 1:53pm [facility] Main [place] [address] [place] [address] CT Scan Report Signed Patient: Irineo Mendes Jr MR# : [id number] : 1940 Acct:[id number] Age/Sex: 84 / M ADM Date: 5 Loc: ER Room: Type: [facility] ER Attending Dr: Copies to: Sree Thao DO~ Ordering Provider: Sree Thao DO Date of Service: 12/12/24 CT/CT cervical spine wo con: fall ([id number]) CT/CT head/brain wo con: fall CT head/brain wo con, CT cervical spine wo con 12/12/2024 1:28 PM SIGNS AND SYMPTOMS: Multiple falls with bruising and skin tears on arms TECHNIQUE:Multi-detector CT axial slices of the brain and cervical spine were obtained without IV contrast. Helical,sagittal, coronal, and 3-D reconstructionsof the cervical spine were performed. CT was performed with one or more of the following dose reduction techniques: Automated exposure control, adjustment of the mA and/or kV according to patient size, or use of iterative reconstruction technique. COMPARISON: 10/31/2024 FINDINGS: Noncontrast head CT: There is no shift of the midline structures, acute intracranial bleeding, mass effects, or evidenceof acute ischemia. Atherosclerotic changes are noted in the intracranial segments of the internal carotid arteries and V4 segment of the right vertebral artery. The ventricular system is normal in size. The brainstemand the cerebellum are unremarkable. The visualized intraorbital contents, the visualized paranasal sinuses, and the infratemporal soft tissues show no acute abnormality. The osseous structures in the skull base and the calvarium show no abnormality. There is soft tissue swelling inthe left frontal scalp which is decreased since the prior exam. Cervical spine: There is preservation of the vertebral body heights. There is moderate disc height loss throughout cervical spine. No fractures or dislocations are seen. The alignment of the cervical spine is normal. The craniocervical junction is within normal limits. Degenerative changes are noted in the atlantoaxial joint. Facet hypertrophy is also present throughout. The prevertebral soft tissues are within normal limits. The paraspinous soft tissues are within normal limits. Atherosclerotic changes are noted in the aortic arch, origins of great vessels,and carotid bifurcations. 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 The lung apices are unremarkable. CT/CT head/brain wo con IMPRESSION: No acute intracranial pathology. Chronic age-related neurodegenerative changes are noted as above. No acute cervical spine injury. Degenerative changes are redemonstrated throughout the cervical spine. 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 Impression dictated by: Shaquille Mahoney M.D. 12/12/2024 1:53 PM Dictation Location: [place] [address] Transcribed By: [facility] 12/12/24 1353 Dictated By: Shaquille Mahoney II, MD 12/12/24 1346 Signed By: <Electronically signed by Shaquille Mahoney II, MD in [place]> 12/12/24 1353 Vital Signs Vital Reading Result Reference Range Collection Date/Time Height 62 [in_i] October 04, 2024 2:00pmBody Izuvhmsxzfy71.2 [degF]97.6-99.0July 2024 2:00pm Heart Rate43 /gwv85-236Kaiz 2024 2:00pmBP Mcbvtsav706 mm[Hg]100-140July 2024 2:00pmBP Yeyiudsbr59 mm[Hg]60-100July 2024 2:51zfGsfazn36 [in_i]October 06, 2024 2:41tgGwnxvb69.40 kgAugust 2024 6:11amBody Kesgllwmrla35.6 [degF]97.6-99.0August 2024 8:00amHeart Rate67 /abx81-826 October 10, 2024 8:00amRespiratory rate18 /xzr48-30Xbjvzz 2024 8:00amOxygen saturation by Pulse iynihdhp36 %95-100August 2024 8:00amBP Yckkkrcv86 mm[Hg]100-140August 2024 8:00amBP Htbhoqqvy06 mm[Hg]60-100August 2024 8:00amInhaled oxygen flow rate2 L/minAugust 2024 3:37gzOcnbfv73 [in_i] December 04, 2024 8:50ziFgyrsk13.00 kgSeptember 2024 8:34zcHddfhj89 [in_i]December 13, 2024 1:40peGkawvq24.00 kgOctober 2024 5:59amBody Lemgwvhaslj81.8 [degF]97.6-99.0October 2024 12:00pmHeart Rate95 /gjy00-141 December 18, 2024 2:46pmRespiratory rate20 /pwh68-57Hhjania 2024 2:46pm Oxygen saturation by Pulse wzxocfhn28 %95-100Oct2024 12:00pmBP Mauphxys334 mm[Hg]100-140Oct2024 12:00pmBP Mvvcbpzkg89 mm[Hg]60-100 December 18, 2024 12:00pm Advance Directives Advance Directive Response Recorded Date/ Time Advance Directives No April 05, 2023 4:20pm Insurance Providers Guarantor Irineo Mendes Jr Address [address] [place] [id number] Info.Home Phone: Payer Policy Id Subscriber's Name Subscriber Id Effectiv e Date Expiration Date Gadiel VERDUGO/ROSA MARIA [id number] Irineo Mendes Jr [id number] R Houlett , [id number] Encounters Encounter Location(s) Arrival/Admit Date Discharge/Depart Date Provider(s) Departed Clinical -Lab [facility] September 24, 2024 12:45pm September 24, 2024 12:46pm Bhupinder Mcintyre DO Departed Physician/Prov ider Office Visit -[facility] October 04, 2024 1:51pm October 04, 2024 2:20pm Frankie Reynolds MD Non-patient / Non-visit -[facility]ly [facility] A ugust 2024 7:55pm Frankie Reynolds MDNon-patient / [facility] 9:13pmSRUTHI Singhischarged Inpatient-3 [facility] [place] 2024 7:05amAugu2024 12:45pmMATT Sanchezeparted Clinical- [facility] Scan [facility] 2024 11:01amAugu2024 11:02amSRUTHI Singheparted Physician/Provider Office Visit-[facility]ly [facility] Neurosurgery November 06, 2024 9:43amSeptember 2024 10:19Nehal Montoya APRN [facility]arted [facility] 11:23amSeptember 2024 11:24LANI Toaeparted Clinical-MRI [facility] December 04, 2024 9:41amSeptember 2024 9:42Nehal Montoya APRN [facility] 2024 2:39pmOctober 2024 3:30pmMichele Knight MD Recent Diagnosis Onset Date Admit Date Catheter-associated urinary tract infection Unkn own October 04, 2024 1:51pm Catheter-associated urinary tract infection Unkn own October 07, 2024 7:05am Intracranial hemorrhage Unknown October 072024 7:05am Abrasion of arm, left Unknown October 7:05am Fall Unknown October 07, 2024 7:05am Fever Unknown October 07, 2024 7:05am Compression fracture of L1 lumbar vertebra Unkno wn November 06, 2024 9:43am Hx of decompressive lumbar laminectomy Unknown November 06, 2024 9:43am Intracranial hemorrhage Unknown 2024 9:43am Radicular low back pain Unknown Novembe r 2024 9:43am Severe back pain Unknown November 06, 2024 9:43am Atrial fibrillation with RVR Unknown Dec 2:39pm Falls Unknown December 12 2:39pm Pressure ulcer of coccygeal region, stage 2 Unkn own December 12, 2024 2:39pm Stage III pressure ulcer of right heel Unknown December 12, 2024 2:39pm Functional Status Observation Response Date Recorded Dressing Patient is Progressing Toward Ba seline December 18, 2024 3:30pm Eating Patient at Baseline December 3:30pm Bathing Patient is Progressing Toward Ba seline December 18, 2024 3:30pm Disability Status Patient at Baseline December 182024 3:30pm Dressing Patient is Progressing Toward Ba seline October 10, 2024 12:45pm Eating Patient at Baseline October 10, 2024 12:45pm Bathing Patient is Progressing Toward Ba seline October 10, 2024 12:45pm Disability Status Patient at Baseline October 12:45pm Mental Status Observation Response Date Recorded Cognitive Status Patient at Baseline December 3:30pm Cognitive Status Patient at Baseline October 10, 2024 12:45pm Cognitive/Mental Status Assessments Assessments Diagnosis Onset Date Resolution Status Admit Date Catheter-associated urinary tract infect ion acuteJuly 2024 1:51pmCatheter-associated urinary tract infectionacute October 07, 2024 7:05amIntracranial hemorrhageacuteAugust 2024 7:05am Abrasion of arm, leftinactiveAugust 2024 7:05amFallinactiveAugust 2024 7:05amFeverdeletedAugust 2024 7:05amCompression fracture of L1 lumbar vertebraacuteSept2024 9:43amHx of decompressive lumbar laminectomy acuteSept2024 9:43amIntracranial hemorrhageacuteSept2024 9:43amRadicular low back painacuteSept2024 9:43amSevere back pain acuteSept2024 9:43amAtrial fibrillation with RVRacuteOctober 2024 2:39pmFallsacuteOctober 2024 2:39pmPressure ulcer of coccygeal region, stage 2acuteOct2024 2:39pmStage III pressure ulcer of right heelacute December 12, 2024 2:39pm Plan of Treatment Author Frankie Reynolds [facility] HealthAuthoredJuly 2024 2:29pmPatient appears nontoxic today and appears to be at his baseline. Daughter feels patient still is not himself as she describes the look in his eyes. Urine culture was done weeks ago without a urine analysis. Patient clearly has not worsened. Would like a new urinalysis and urine culture obtained after catheter exchange. If signs of infection still present on this then would figure out a way to target treatment. Of course with a chronic Wellington catheter asymptomatic colonization is expected. His urine today in the bag actually look clear and yellow. Of note patient's daughter states his appetite has been good recently and aside from the way his eyes look he has been otherwise acting okay. Therefore I am not necessarily convinced there is an active urinary tract infection causing symptoms Achromobacter could easily just be colonized Author Keely Montoya [facility] HealthAuthoredSeptember 2024 10:29amThis patient is an 84-year-old male who is known to me from prior clinic encounters, presents today for a posthospitalization follow-up. Apparently he sustained a fall hitting his head on the dresser which resulted in a right-sided subdural hematoma. Patient underwent a repeat CT just days ago which demonstrates complete resolution of hemorrhage. However, he had also underwent a CT of the lumbar spine which I ordered earlier due to abnormal fluid collection at the laminectomy that. Upon reviewing the imaging, there is an L1 compression deformity at the superior endplate which is new compared to prior imaging. There is approximately 50% vertebral body height loss. Otherwise chronic degenerative without significant change compared to prior imaging. I went over the results with the patient and his daughter. They were not aware. Almost fracture. He needs to be brace to help with the pain and to expedite the healing. Will need an MRI of the lumbar spine with/without contrast to determine the acuity of the fracture and if there is any significant stenosis at the level patient does report some leg symptoms, although unsure if they are much different from his chronic symptoms. Daughter does admit that patient has been walking good which is why he was admitted to group home facility posthospitalization. He still has some pain to the posterior aspect of the bilateral legs. We are going to proceed with the MRI of the lumbar spine. Will need to do a repeat x-ray of the lumbar spine in approximately 3 weeks. TLSO brace will be ordered today. I will see him back in the office when the MRI is completed. Future Tests Future scheduled test information is unavailable Pending Tests Pending diagnostic test information is unavailable Future Visits Future appointment information is unavailable Referrals to Other Providers Reason for Referral Referral Start Date Provider Louis potter Contact Information Provider Address Please call to schedule an appointment f or right heel stage 3 pressure injury. [facility] CenterWork Phone: [phone] [place] [id number] Gomez APRNWork Phone: [phone] [place] [phone] a brain CT. This must be done prior to the appointment with Dr. Stovall.[facility] , MedWork Phone: [phone] [place] [phone] call to schedule follow up appointment following discharge from group home facility.Louis Garcia: [email or web address] Work Phone: [phone] [facility] [address] [place] [phone] have the Brain CT done 1 day prior to this appointment. This appointment is scheduled with Dr. Stovall's Nurse Practitioner.Jovany Stovall MDWork Phone: fpg [facility] Neurosurgery [address], [address] [place] [id number] Future Procedures Procedure Name Ordered Date Scheduled Date Admit Status Order December 12, 2024 2:39pm Octo heather 2024 2:39pm Discharge Order December 18, 2024 11:08am Octob er 2024 11:08am Admit Status Order October 05, 2024 9:13pm Augus t 2024 9:13pm Discharge Order October 10, 2024 10:33am October 10, 2024 10:33am Future Medications Future medication information is unavailable Patient Instructions Patient instructions are unavailable Goals Acute Goals Author Authored Date Exhibit optimal tissue perfu katarzyna * Exhibits adequate oxygenation and ventilation * Exhibits adequate cardiac output * Regains stable cardiac rhythm * Maintains optimal activity level * Maintains balanced intake and outputDesFirelands Regional Medical Center [facility] 2024 3:48pmSkin integrity intact [facility] 2024 3:48pmMaintain/increase activity levels * Understands factors that may lead to activity intolerance * Helps perform self care activities * Maintains maximum range of motion * Increase/regain muscle mass and strength * Maintains VS WNL during activity * Maintain intact skin integrity Updated: 04/19/2022estN[facility] HospitalOctmiddles[facility] 2024 3:48pmAbsence of new skin breakdown [facility] 2024 3:48pmWound healing [facility] 2024 3:48pmFall Prevention estmsy [facility] 2024 3:48pmMaintain/increase activity levels * Understands factors that may lead to activity intolerance * Helps perform self care activities * Maintains maximum range of motion * Increase/regain muscle mass and strength * Maintains VS WNL during activity * Maintain intact skin integrity [facility]: [facility] 2024 1:06pmFall Prevention 2022[facility] 2024 1:06pmExhibit optimal tissue perfusion * Exhibits adequate oxygenation and ventilation * Exhibits adequate cardiac output * Regains stable cardiac rhythm * Maintains optimal activity level * Maintains balanced intake and outputTayler [facility] 2024 1:06pmSkin integrity intact [facility] 2024 1:06pmAbsence of new skin breakdown [facility] 2024 1:06pmWound healing [facility] 2024 1:06pm Preferences Type Detail Treatment Intervention Code Status: Full Code Treatment Intervention Code Status: Full Code Hospital Discharge Instructions Additional Instructions SNF TO MANAGE: PT/OT to eval and treat Monitor VS per protocol Monitor Urinary assessment--UTI Monitor Cardiac assessment--Atrial fib Monitor Neuro., Ortho. and pain assessments--L1 compression fracture Monitor Skin assessment Monitor for increased signs of infection Monitor labs as needed--Anemia Routine care to peripheral IV--maintain until IV antibiotic is complete Administer IV antibiotic as ordered Skin care BID to groin fold and scrotum redness-- *clean with theraworx protect foam, then apply nystatin powder Daily wound care to bilateral arm skin tears, left leg skin tears, and right heel stage 3 pressure injury-- *clean wounds with vashe, apply hydrogel to wound beds, top with adaptic, *4x4s except abd to heel, secure with conforming gauze *then gladys wraps to bilateral lower legs from base of toes to 1 inch below knee Dressing change every 3 days to coccyx stage 2 pressure injury blister-- *clean with vashe, apply mepilex border foam Off load bilateral heels and turn and reposition every 2 hours Maintain and perform routine care to wellington--wellington is chronic High risk fall precautions Care to be managed by SNF providers Consultation Note Author Bhupinder Mcintyre Uc HealthNote Date/TimeOctober 2024 4:05pm [place] [address] Cardiology Consult Note Signed Patient: Irineo Mendes Jr MR# : [id number] : 1940 Acct:[id number] Age/Sex: 84 / M Adm Date: 5 Loc: 4 Room: 4D1067-4 Type: ADM IN Attending Dr: Akash Mccartney MD Copies to: DO Akash Catalan MD Rebekah M Farris, DO, RES Bhupinder Mcintyre DO~ Cardiology HPI History of Present Illness Consult Date: 12/14/24 Reason for Consult: med management of Afib HPI: Mr. Mendes is a 84 year old male seen in cardiology consultation at request of hospitalist and in conjunction with Dr. Alfonso, I agree with her evaluation, management, we have interviewed the patient and daughter, jointly, and discussedanticoagulation and options including Watchman device with patient and daughter. Patient presents with PMH of chronic atrial fibrillation on Eliquis, CHF last EF60-65% 01/2022, hypothyroidism, and gout who presented to the ER on 12/12 after multiple falls at home. He reports he does not remember feeling lightheaded or dizzy before, and he denies LOC or hitting his head. One of the falls, he reports, his legs giving out from under him while he was standing at the sink inthe bathroom, and another he reports falling when getting out of bed. He was incontinent of stool as well. Additionally, he was admitted in October also for a fall with small subdural hematoma and L1 compression fracture (cardiology not involved in the October hospitalization). In the ER, he was in AF with RVR around up to 120bpm and started on a Cardizem drip. Blood pressures were normotensive. CT head and neck showed no acute bleed or bony injuries. Labs showed anemia with Hgb 9.6 (baseline around 8.5-9.5), but no leukocytosis or electrolyte abnormalities. Troponin was negative x2. His PT/INR was elevated at 28.3/2.6. Updated echocardiogram is pending, last is from 01/26. Yesterday, he was started on metoprolol tartrate 25mg BID and Cardizem was weened off last night. He remained rate controlled on the metoprolol, but earlier today, he developed bradycardia into the 40s while awake. Cardiac catheterization in May 2016 showed minimal coronary artery disease though he had an EF of35%. He has been on digoxin and carvedilol in the past, but he developed symptomatic bradycardia with that, and it has been stopped for some time. Until this admission, he has been in chronic, rate-controlled AF without medications. A&P: Mr. Mendes is an 84yo male with PMH of chronic AF, CHF, and hypothyroidismwho presented with multiple falls secondary to lumbar radiculopathy, deconditioning, and AF with RVR while on chronic anticoagulation. His [id number] is 4 and HAS-BLED score is also 4. With his recent subdural hematoma in October and continued frequent falls, will hold his Eliquis and discuss with the patient his high risk for bleeding. Had an in depth conversation with patient and daughter (over the phone) about potential for Watchman device, risk, benefits, alternatives and informed decision-making process performed for 30 minutes this afternoon. He would be a good candidate for this. They would liketodiscuss it and will have follow up in the cardiology office. Given his return to bradycardia while on at beta saroj, will hold the metoprolol as welland continue to monitor. Daughter is actually asking about whether this procedure will improve patient's strength and ambulatory capacity which is completely different issue than mitigating bleeding risks with Watchman device; it appears his lumbar back and spinal/peripheral nerve related issues and generalized deconditioning likely themain issue with his falling and weakness. [facility] Medical History Abrasion of arm, left Fall Intracranial hemorrhage Insomnia Hypothyroidism Hypertension Constipation BPH (benign prostatic hyperplasia) Atrial fibrillation Venous insufficiency Toenail deformity Tinnitus Primary osteoarthritis of left knee Neuropathic pain Multiple joint pain Glaucomatocyclitic crisis, mild stage Meningioma, recurrent of spine Lumbar spondylolysis Lumbar degenerative disc disease Hyperlipidemia Gout Cellulitis Cardiomyopathy Bladder instability Bakers cyst History of cardiovascular stress test Bilateral cataracts Pleural effusion Constipation Bladder retention Difficulty walking Falls frequently Debility Acute on chronic congestive heart failure with left ventricular diastolic dysfunction Elevated troponin Low serum prealbumin HFrEF (heart failure with reduced ejection fraction) Acute exacerbation of congestive heart failure Altered mental status Dehydration Medication side effect Anasarca Generalized weakness Impaired activities of daily living Laceration Left ankle pain Hypoxemia Acute decompensated heart failure Fall Acute respiratory failure with hypoxia Chronic CHF 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 DJD (degenerative joint disease) Osteoarthritis Renal calculi BPH (benign prostatic hyperplasia) Atrial fibrillation History of gastric ulcer Sleep apnea does not use equipment Hypothyroidism Surgical History History of colonoscopy History of left knee replacement History of left hip replacement History of back surgery Status post total left knee replacement History of total left knee replacement History of endoscopic sinus surgery Hx of decompressive lumbar laminectomy 2010-with tumor resection History of lithotripsy Left ; with cyst, stents () History of repair of rotator cuff Bilateral- History of total left hip arthroplasty 2011 History of total right knee replacement 2015 History of excision of Zenker's diverticulum Transcervial resection 2009 Family History Mother Alzheimers disease Hx of CABG CAD (coronary artery disease) Myocardial infarction Heart disease Hypertension Brother Myocardial infarction Father Hepatic cirrhosis Sister Cancer Brother Heart disease Legacy FamHx Relation: Brother(s) Son Cancer Legacy FamHx Problem: Diagnosed with Cancer Social History Smoking Status: Former smoker Tobacco Type: cigarettes Substance Use Type: Alcohol Substance Abuse Comment: 3 drinks a day >6 Social History Comments: [facility] Meds Medications and Allergies Allergies fentanyl Allergy (Unknown, Verified 12/12/24 12:23) Dizziness, loopy indomethacin (From Indocin) Allergy (Unknown, Verified 12/12/24 12:23) Dizziness zolpidem (From Ambien) Allergy (Unknown, Verified 12/12/24 12:23) Confusion, memory loss Penicillins Allergy (Verified 12/12/24 12:23) Weakness Home Medications magnesium oxide 400 mg PO QHS 06/06/23 [History Confirmed 12/12/24] allopurinol 300 mg tablet 300 mg PO DAILY #90 tabs 06/09/23 [Rx Confirmed 12/12/24] levothyroxine 150 mcg tablet (Synthroid) 150 mcg PO QAM #90 tabs 11/29/23 [Rx Confirmed 12/12/24] trazodone 50 mg tablet 50 mg PO QHS PRN insomnia #90 tabs 11/29/23 [Rx Confirmed 12/12/24] bumetanide 1 mg tablet 1 mg PO DAILY 03/10/24 [History Confirmed 12/12/24] apixaban 2.5 mg tablet (Eliquis) 5 mg PO BID 07/12/24 [History Confirmed 12/12/24] potassium chloride 20 mEq tablet,extended release(part/cryst) (Klor-Con M) 20 meq PO QHS 07/12/24 [History Confirmed 12/12/24] nystatin 100,000 unit/gram topical powder 1 applic topical BID #60 grams 09/12/24 [Rx Confirmed 12/12/24] atorvastatin 40 mg tablet 40 mg PO QHS 10/05/24 [History Confirmed 12/12/24] eszopiclone 3 mg tablet (Lunesta) 3 mg PO QHS 10/05/24 [History Confirmed 12/12/24] pramipexole 0.25 mg tablet 0.25 mg PO DAILY PRN tremor(s) 10/05/24 [History Confirmed 12/12/24] acetaminophen 500 mg tablet (Acetaminophen Extra Strength) 1,000 mg PO TID PRN pain 12/12/24 [History Confirmed 12/12/24] apixaban 5 mg tablet (Eliquis) 5 mg PO BID 12/12/24 [History Confirmed 12/12/24] budesonide 0.5 mg/2 mL suspension for nebulization 0.5 mg inhalation BID 12/12/24 [History Confirmed 12/12/24] ipratropium 0.5 mg-albuterol 3 mg (2.5 mg base)/3 mL nebulization soln 3 ml inhalation TID 12/12/24[History Confirmed 12/12/24] Exam Physical Exam Vital Signs: Temp Pulse Resp BP Pulse Ox O2 Del Method 98.9 F 63 20 126/74 95 Room Air 12/14/24 10:46 12/14/24 10:46 12/14/24 10:46 12/14/24 10:46 12/14/24 10:46 12/14/24 10:46 Const General: cooperative, comfortable and no acute distress HEENT Face and sinus: ecchymosis (bruise over left maxillary arch) Eyes Conjunctivae: conjunctivae normal Chest Chest palpation & inspection: normal inspection of the chest Resp Effort & Inspection: normal respiratory effort and able to speak in complete sentences Auscultation: clear to auscultation bilaterally Cardio Rate: regular rate Rhythm: abnormal rhythm Heart Sounds: S1 normal, S2 normal and no murmurs GI Palpation: soft and nontender Skin General: ecchymosis (bruising to b/l arms) Trauma: abrasion (left knee) Neuro General: patient alert and patient awake Cranial Nerves: other (initial- R pupil is pinpoint, L pupil is 3mm and reactive; re-evaluation pupils symmetric) Extrem General: edema (b/l pedal L>R and R hand) Other: lower extremities wrapped Psych Appearance: grossly normal Affect: normal affect Results - Cardiology Labs 12/14/24 04:32 12/14/24 04:32 Lab results: Cardiac Enzymes 12/14/24 Range/Units 04:32 AST 25 (13-39) U/L CBC 12/14/24 Range/Units 04:32 RBC 2.87 L (3.90-5.60) x10E6/uL Hgb 8.2 L (13.0-17.0) g/dL Hct 25.1 L (38.8-50.0) % Plt Count 230 (150-450) x10E3/uL Neut # (Auto) 3.3 (1.8-7.7) x10E3/uL Lymph # (Auto) 1.2 (1.00-4.8) x10E3/uL Jackson # (Auto) 0.5 (0.0-0.8) x10E3/uL Eos # (Auto) 0.3 (0.0-0.45) x10E3/uL Baso # (Auto) 0.0 (0.0-0.2) x10E3/uL Comprehensive Metabolic Panel 12/14/24 Range/Units 04:32 Sodium 137 (136-145) mmol/L Potassium 4.0 (3.5-5.1) mmol/L Chloride 104 (98-107) mmol/L Carbon Dioxide 25.5 (21.0-31.0) mmol/L BUN 16 (7-25) mg/dL Creatinine 1.15 (0.70-1.30) mg/dL Glucose 81 (70-100) mg/dL Calcium 8.3 L (8.6-10.3) mg/dL AST 25 (13-39) U/L ALT 10 (7-52) U/L Alkaline Phosphatase 85 (34-104) U/L Total Protein 5.9 L (6.4-8.9) gm/dL Albumin 3.1 L (3.5-5.7) gm/dL Intake and Output 12/13/24 12/14/24 12/14/24 23:59 07:59 15:59 Intake Total 1220 / 1680 200 / 200 Output Total 1200 / 2200 970 / 970 Balance 20 / -520 -770 / -770 Intake: Oral 1220 / 1580 200 / 200 Output: Urine Amount (Catheter) 1200 / 2200 970 / 970 Urethral (Wellington) 1200 / 2200 970 / 970 Other: Weight 82.6 kg Date of Last Bowel Movement 12/10/24 Patient Weight 12/14/24 23:59 Weight 82.6 kg Lab 12/12/24 12/13/24 12:25 05:39 PT 28.3 H 27.3 H INR 2.6 2.5 APTT 38.4 H 38.9 H A&P - Cardiology (1) Atrial fibrillation with RVR: Code(s): I48.91 - Unspecified atrial fibrillation (2) Falls: Code(s): R29.6 - Repeated falls Plan see above Documented By: Bhupinder Mcintyre DO 12/14/24 1116 Signed By: <Electronically signed by Bhupinder Mcintyre DO> 12/14/24 1605 <Electronically signed by RES Janie Fink Bill> 12/14/24 1543 History & Physical Note Author Akash Mccartney [facility] HealthNote Date/TimeOctober 2024 3:14[place] [address] Hospitalist H&P Signed Patient: Irineo Mendes Jr MR# : [id number] : 1940 Acct:[id number] Age/Sex: 84 / M Adm Date: 5 Loc: 4 Room: [address] [place] [address] Type: ADM IN Attending Dr: Akash Mccartney MD Copies to: DO Akash Catalan MD~ HPI DATE OF EXAMINATION: 12/12/24 CHIEF COMPLAINT: Repeated falls, weakness HISTORY OF PRESENT ILLNESS: Mr. Mendes is an 84-year-old male with PMH of HTN, hypothyroidism, BPH, chronicindwelling Wellington catheter, history of multiple back surgeries including lumbar fusion, recently found to L1 compressionfracture, A-fib on Eliquis, hypothyroidism who presents from home with multiple falls. Patient was r ecentlyadmitted approximately 1 month ago for fall and was discharged to SNF in October 2024. Since then, he has been managed at home with home health care with home health nursing. He is stating thathe is doing reasonably well at home, but does report significant falls multiple times per week. He states that he knows the EMS providers on a first name basis because he has to call squad often to he lp him get up from a falling position. He does have home health care and today his home health carenurse recommended that he come into the emergency room due to feeling weak. He states that he had afall a few days ago, where hewas on the ground for an extended period of time, but sustained no major injuries. He states that he performs his ADLs on his own, but that his son lives on his property and his daughter lives a little ways down the road. His home health care nurse came to visit him today, and noted that he had fallen andwas covered in stool. Squad was called, patient was brought intothe emergency department for further evaluation. In the emergency department, patient denied loss of consciousness or hitting hishead with any of the recent falls. He was covered in bruises and stool. Heart rates were elevated up into the 120s. Patient was started on diltiazem continuous infusion. CT of the head and cervical spine did not demonstrate acute abnormalities. Chest x-ray largely nonacute. Case was discussed between myself and ED attending and patient was admitted to hospitalist service for further management. Review of Systems Review of Systems Review of systems: 10 point ROS reviewed and is negative except for that which is noted above in HPI [facility] Medical History Abrasion of arm, left Fall Intracranial hemorrhage Insomnia Hypothyroidism Hypertension Constipation BPH (benign prostatic hyperplasia) Atrial fibrillation Venous insufficiency Toenail deformity Tinnitus Primary osteoarthritis of left knee Neuropathic pain Multiple joint pain Glaucomatocyclitic crisis, mild stage Meningioma, recurrent of spine Lumbar spondylolysis Lumbar degenerative disc disease Hyperlipidemia Gout Cellulitis Cardiomyopathy Bladder instability Bakers cyst History of cardiovascular stress test Bilateral cataracts Pleural effusion Constipation Bladder retention Difficulty walking Falls frequently Debility Acute on chronic congestive heart failure with left ventricular diastolic dysfunction Elevated troponin Low serum prealbumin HFrEF (heart failure with reduced ejection fraction) Acute exacerbation of congestive heart failure Altered mental status Dehydration Medication side effect Anasarca Generalized weakness Impaired activities of daily living Laceration Left ankle pain Hypoxemia Acute decompensated heart failure Fall Acute respiratory failure with hypoxia Chronic CHF 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 DJD (degenerative joint disease) Osteoarthritis Renal calculi BPH (benign prostatic hyperplasia) Atrial fibrillation History of gastric ulcer 1959' Sleep apnea does not use equipment Hypothyroidism Surgical History History of colonoscopy History of left knee replacement History of left hip replacement History of back surgery Status post total left knee replacement History of total left knee replacement History of endoscopic sinus surgery Hx of decompressive lumbar laminectomy 2010-with tumor resection History of lithotripsy Left ; with cyst, stents () History of repair of rotator cuff Bilateral- History of total left hip arthroplasty 2011 History of total right knee replacement 2015 History of excision of Zenker's diverticulum Transcervial resection 2009 Family History Mother Alzheimers disease Hx of CABG CAD (coronary artery disease) Myocardial infarction Heart disease Hypertension Brother Myocardial infarction Father Hepatic cirrhosis Sister Cancer Brother Heart disease Legacy FamHx Relation: Brother(s) Son Cancer Legacy FamHx Problem: Diagnosed with Cancer Social History Smoking Status: Former smoker Tobacco Type: cigarettes Substance Use Type: Alcohol Substance Abuse Comment: 3 drinks a day >6 Social History Comments: [facility] Meds Medications and Allergies Allergies fentanyl Allergy (Unknown, Verified 12/12/24 12:23) Dizziness, loopy indomethacin (From Indocin) Allergy (Unknown, Verified 12/12/24 12:23) Dizziness zolpidem (From Ambien) Allergy (Unknown, Verified 12/12/24 12:23) Confusion, memory loss Penicillins Allergy (Verified 12/12/24 12:23) Weakness Home Medications magnesium oxide 400 mg PO QHS 06/06/23 [History Confirmed 12/12/24] allopurinol 300 mg tablet 300 mg PO DAILY #90 tabs 06/09/23 [Rx Confirmed 12/12/24] levothyroxine 150 mcg tablet (Synthroid) 150 mcg PO QAM #90 tabs 11/29/23 [Rx Confirmed 12/12/24] trazodone 50 mg tablet 50 mg PO QHS PRN insomnia #90 tabs 11/29/23 [Rx Confirmed 12/12/24] bumetanide 1 mg tablet 1 mg PO DAILY 03/10/24 [History Confirmed 12/12/24] apixaban 2.5 mg tablet (Eliquis) 5 mg PO BID 07/12/24 [History Confirmed 12/12/24] potassium chloride 20 mEq tablet,extended release(part/cryst) (Klor-Con M) 20 meq PO QHS 07/12/24 [History Confirmed 12/12/24] nystatin 100,000 unit/gram topical powder 1 applic topical BID #60 grams 09/12/24 [Rx Confirmed 12/12/24] atorvastatin 40 mg tablet 40 mg PO QHS 10/05/24 [History Confirmed 12/12/24] eszopiclone 3 mg tablet (Lunesta) 3 mg PO QHS 10/05/24 [History Confirmed 12/12/24] pramipexole 0.25 mg tablet 0.25 mg PO DAILY PRN tremor(s) 10/05/24 [History Confirmed 12/12/24] acetaminophen 500 mg tablet (Acetaminophen Extra Strength) 1,000 mg PO TID PRN pain 12/12/24 [History Confirmed 12/12/24] apixaban 5 mg tablet (Eliquis) 5 mg PO BID 12/12/24 [History Confirmed 12/12/24] budesonide 0.5 mg/2 mL suspension for nebulization 0.5 mg inhalation BID 12/12/24 [History Confirmed 12/12/24] ipratropium 0.5 mg-albuterol 3 mg (2.5 mg base)/3 mL nebulization soln 3 ml inhalation TID 12/12/24[History Confirmed 12/12/24] Exam Physical Exam Vital Signs: Temp Pulse Resp BP Pulse Ox O2 Del Method 97.6 F 86 20 141/93 H 96 Room Air 12/12/24 18:21 12/12/24 18:21 12/12/24 18:21 12/12/24 18:21 12/12/24 18:21 12/12/24 18:22 Narrative: Constitutional: Frail, elderly WM, does not appear to be in acute distress HEENT: Dry mucous membranes, neck supple, no JVD Cardiovascular: Tachycardic, irregular, no M/R/G Respiratory: Clear to auscultation bilaterally, no wheezes, rales or rhonchi GI: Soft, NTND, normoactive bowel sounds : Deferred Extremities: Bruising noted throughout upper and lower extremities bilaterally Neuro: AAO x 3, no focal deficits Skin: Bruising noted throughout extremities. Strength appears 5/5 Psych: Calm, cooperative and conversant Results - Hospitalist H&P Lab Results Labs: Laboratory Last Values Corrected WBC 5.0 X10E3/uL (4.1-10.5) 12/12/24 12:25 Uncorrected WBC Count 5.0 x10E3/uL (4.1-10.5) 12/12/24 12: RBC 3.34 x10E6/uL (3.90-5.60) L 12/12/24 12: Hgb 9.6 g/dL (13.0-17.0) L 12/12/24 12: Hct 29.7 % (38.8-50.0) L 12/12/24 12: MCV 88.7 fl (83.5-101) 12/12/24 12: MCH 28.8 pg (27.5-35.2) 12/12/24 12: MCHC 32.5 g/dL (32.5-35.6) 12/12/24 12: RDW 18.4 % (12.0-14.8) H 12/12/24 12: Plt Count 229 x10E3/uL (150-450) 12/12/24 12: MPV 7.8 fl (6.6-10.1) 12/12/24 12: Neut % (Auto) 71.6 % (.) 12/12/24 12: Lymph % (Auto) 15.9 % (.) 12/12/24 12: Jackson % (Auto) 7.5 % (.) 12/12/24 12: Eos % (Auto) 4.4 % (.) 12/12/24 12: Baso % (Auto) 0.6 % (.) 12/12/24 12: Nucleat RBC Rel Count 0.3 /100 WBC (0-0.5) 12/12/24 12:25 Neut # (Auto) 3.5 x10E3/uL (1.8-7.7) 12/12/24 12: Lymph # (Auto) 0.8 x10E3/uL (1.00-4.8) L 12/12/24 12: Jackson # (Auto) 0.4 x10E3/uL (0.0-0.8) 12/12/24 12: Eos # (Auto) 0.2 x10E3/uL (0.0-0.45) 12/12/24 12:25 Baso # (Auto) 0.0 x10E3/uL (0.0-0.2) 12/12/24 12:25 Monocyte Dist Width 18.74 % (0.00-20.00) 12/12/24 12:25 PT 28.3 Seconds (9.0-12.9) H 12/12/24 12:25 INR 2.6 12/12/24 12: APTT 38.4 Seconds (25.1-36.5) H 12/12/24 12:25 PHA Creatinine Clear 51.45 12/12/24 12:25 Sodium 136 mmol/L (136-145) 12/12/24 12:25 Potassium 3.6 mmol/L (3.5-5.1) 12/12/24 12: Chloride 102 mmol/L (98-107) 12/12/24 12: Carbon Dioxide 26.4 mmol/L (21.0-31.0) 12/12/24 12: Anion Gap 11.2 mEq/L (6.0-15.0) 12/12/24 12:25 BUN 16 mg/dL (7-25) 12/12/24 12:25 Creatinine 1.09 mg/dL (0.70-1.30) 12/12/24 12:25 Est GFR (CKD-EPI) > 60.0 mL/Min 12/12/24 12:25 Glucose 121 mg/dL (70-100) H 12/12/24 12:25 Calcium 9.1 mg/dL (8.6-10.3) 12/12/24 12:25 Total Bilirubin 0.9 mg/dl (0.3-1.0) 12/12/24 12:25 AST 49 U/L (13-39) H 12/12/24 12:25 ALT 14 U/L (7-52) 12/12/24 12:25 Alkaline Phosphatase 98 U/L (34-104) 12/12/24 12:25 Troponin I High Sens 10 ng/L (0-20) 12/12/24 12:25 B-Natriuretic Peptide 114.0 pg/mL (5-100) H 12/12/24 12:25 Total Protein 6.9 gm/dL (6.4-8.9) 12/12/24 12:25 Albumin 3.7 gm/dL (3.5-5.7) 12/12/24 12:25 Globulin 3.2 gm/dL 12/12/24 12:25 Albumin/Globulin Ratio 1.2 12/12/24 12:25 Urine Color Colorless (Yellow) 12/12/24 13:19 Urine Appearance Clear (Clear) 12/12/24 13:19 Urine pH 5.5 (5.0-9.0) 12/12/24 13:19 Ur Specific Cypress 1.004 (1.001-1.030) 12/12/24 13:19 Urine Protein Negative mg/dL (Negative) 12/12/24 13:19 Urine Glucose (UA) Normal mg/dL (Normal) 12/12/24 13:19 Urine Ketones Negative (Negative) 12/12/24 13:19 Urine Occult Blood 1+ (Negative) H 12/12/24 13:19 Urine Nitrite Negative (Negative) 12/12/24 13:19 Urine Bilirubin Negative (Negative) 12/12/24 13:19 Urine Urobilinogen Normal mg/dL (Normal) 12/12/24 13:19 Ur Leukocyte Esterase 2+ (Negative) H 12/12/24 13:19 Urine RBC 1-2 /HPF (0-4) 12/12/24 13:19 Urine WBC 10-19 /HPF (0-4) H 12/12/24 13:19 Ur Squamous Epith Cells N/A 12/12/24 13:19 Urine Bacteria Rare /HPF (None Seen) 12/12/24 13:19 Hyaline Casts 0-8 /LPF (0-8) 12/12/24 13:19 Urine Mucus Rare /LPF 12/12/24 13:19 Assessment & Plan Assessment/Plan (1) Atrial fibrillation with RVR: (2) Falls: Plan Mr. Mendes is an 84-year-old male with PMH of HTN, hypothyroidism, BPH, chronicindwelling Wellington catheter, history of multiple back surgeries including lumbar fusion, recently found to L1 compressionfracture, A-fib on Eliquis, hypothyroidism who presents from home with multiple falls. Son concerned that patient is not able to care for himself at home given the amount of times patient has been falling, and this is even more high risk in the setting of Eliquis therapy. He does present in A-fib RVR. Diltiazem drip is in place. May consider cardiology consult for rate and rhythm control strategy. In addition, patient will be evaluated by physical and Occupational Therapy for assessment of therapy needs. Follow-up urine culture and continue home medications otherwise. No signs or symptoms of sepsis at this time. CODE STATUS: Full code. DVT prophylaxis: Eliquis IP vs OBS Justification Based on differential dx, clinical care plan, and risk of adverse events, if untreated, in my clinical judgement this patient requires an acute care setting as: INPATIENT because of an expectation ofan over 2 midnight stay. Estimated length of stay (# of days): 3 Documented By: Akash Mccartney MD 5 [id number] Signed By: <Electronically signed by Akash Mccartney MD> 12/13/24313 Progress Note Author Akash Mccartney [facility] Date/TimeOctober 2024 5:[place] [address] Hospitalist Progress Note Signed with Addenda Patient: Irineo Mendes Jr MR# : [id number] : 1940 Acct:[id number] Age/Sex: 84 / M Adm Date: Loc: Room: [address] [place] [address] Type: ADM IN Attending Dr: Akash Mccartney MD Copies to: ~ ADDENDUM1 Subjective: Patient is complaining of aches and pains in the upper and lower extremities, randomly. He did takeTylenol today which did improve her symptoms somewhat. He does understand that he may have to go toSNF to attempt to regain his strength, and that being at home by himself is likely not feasible given his functional status at this time. Blood pressures remain somewhat soft in the 90sover 50s???60s. Diltiazem drip has been weaned down to 5mg/h. Addendum Documented By: Akash Mccartney MD 12/13/241715 Addendum Signed By: <Electronically signed by Akash Mccartney MD> 12/13/241715 Date of Service: 12/13/2024 Exam Physical Exam Vital Signs: Temp Pulse Resp BP Pulse Ox O2 Del Method 98.5 F 91 20 99/57 L 99 Room Air 12/13/24 15:23 12/13/24 15:23 12/13/24 15:23 12/13/24 15:23 12/13/24 15:23 12/13/24 15:23 Narrative: Constitutional: Frail, elderly WM, does not appear to be in acute distress HEENT: Dry mucous membranes, neck supple, no JVD Cardiovascular: Tachycardic, irregular, no M/R/G Respiratory: Clear to auscultation bilaterally, no wheezes, rales or rhonchi GI: Soft, NTND, normoactive bowel sounds : Deferred Extremities: Bruising noted throughout upper and lower extremities bilaterally Neuro: AAO x 3, no focal deficits Skin: Bruising noted throughout extremities. Strength appears 5/5 Psych: Calm, cooperative and conversant Objective Lab Results 12/13/24 05:39 12/13/24 05:39 Microbiology Results Microbiology 12/12/24 13:19 Urine - Wellington Catheter Urine Culture - Preliminary Klebsiella pneumoniae Meds Allergies and Active Meds Allergies fentanyl Allergy (Unknown, Verified 12/12/24 12:23) Dizziness, loopy indomethacin (From Indocin) Allergy (Unknown, Verified 12/12/24 12:23) Dizziness zolpidem (From Ambien) Allergy (Unknown, Verified 12/12/24 12:23) Confusion, memory loss Penicillins Allergy (Verified 12/12/24 12:23) Weakness Active Meds: Active Medications Generic Name Dose Route Start Last Admin Trade Name Vince PRN Reason Stop Dose Admin Acetaminophen 650 mg 12/12/24 18:19 12/13/24 15:28 Acetaminophen 325 Mg Tablet PO 12/12/25 18:18 650 mg Q6HR PRN Administration Pain Scale 1 - 3 or fever Albuterol/Ipratropium 3 ml 12/12/24 20:30 12/13/24 14:40 Ipratropium/Albuterol 0.5-3 Mg 3 Ml Ampul.Neb INHALATION 12/12/25 20:29 3 ml TID ANIBAL Administration Allopurinol 300 mg 12/13/24 09:00 12/13/24 09:51 Allopurinol 300 Mg Tablet PO 12/13/25 08:59 300 mg DAILY ANIBAL Administration Apixaban 5 mg 12/12/24 21:00 12/13/24 09:51 Apixaban 5 Mg Tablet PO 12/12/25 20:59 5 mg BID ANIBAL Administration Atorvastatin Calcium 40 mg 12/12/24 22:00 12/12/24 22:45 Atorvastatin 40 Mg Tablet PO 12/12/25 21:59 40 mg QHS ANIBAL Administration Budesonide 0.5 mg 12/12/24 21:00 12/13/24 08:50 Budesonide 0.5 Mg/2 Ml Ampul.Neb INHALATION 12/12/25 20:59 0.5 mg BID ANIBAL Administration Bumetanide 1 mg 12/13/24 09:00 12/13/24 09:51 Bumetanide 1 Mg Tablet PO 12/13/25 08:59 1 mg DAILY ANIBAL Administration Diltiazem HCl 100 mg in 100 mls @ 10 mls/hr 12/12/24 12:45 12/13/24 08:01 Cardizem IV 12/12/25 12:44 5 mg/hr .Q10H ANIBAL 5 mls/hr Protocol Titration 10 MG/HR Magnesium Sulfate 2 gm in 50 mls @ 25 mls/hr 12/12/24 18:19 Magnesium Sulf 2gm-*Swfi* IV 12/12/25 18:18 DAILY PRN Magnesium Level < 1.7 Levothyroxine Sodium 150 mcg 12/13/24 06:30 12/13/24 06:01 Levothyroxine 150 Mcg Tablet PO 12/13/25 06:29 150 mcg DAILY.0630 ANIBAL Administration Magnesium Oxide 400 mg 12/12/24 22:00 12/12/24 22:45 Magnesium Oxide 400 Mg Tablet PO 12/12/25 21:59 400 mg QHS ANIBAL Administration Non-Formulary Medication 3 mg 12/12/24 22:00 12/12/24 22:46 Eszopiclone [Lunesta] PO 12/12/25 21:59 Not Given QHS ANIBAL Nystatin 1 applic 12/12/24 21:00 12/13/24 09:51 Nystatin 100,000 Unit/Gram Powder 15 Gm Bottle TOPICAL 12/12/25 20:59 1 applic BID ANIBAL Administration Ondansetron HCl 4 mg 12/12/24 18:19 Ondansetron 4 Mg/2 Ml Vial IV-PUSH 12/12/25 18:18 Q6H PRN Nausea And Vomiting Potassium Chloride 40 meq 12/12/24 18:19 Potassium Chloride Er 20 Meq Tab.Er.Prt PO 12/12/25 18:18 DAILY PRN Hypokalemia Potassium Chloride 20 meq 12/12/24 22:00 12/12/24 22:45 Potassium Chloride Er 20 Meq Tab.Er.Prt PO 12/12/25 21:59 20 meq QHS ANIBAL Administration Pramipexole Dihydrochloride 0.25 mg 12/12/24 18:24 Pramipexole 0.25 Mg Tablet PO 12/12/25 18:23 DAILY PRN tremor(s) Sodium Chloride 0 ml 12/12/24 12:23 12/12/24 13:13 Sodium Chloride 0.9 % 10 Ml Syringe IV-PUSH 12/12/25 12:22 10 ml PRN PRN Administration Flush Sodium Chloride 0 ml 12/12/24 22:00 12/13/24 15:26 Sodium Chloride 0.9 % 10 Ml Syringe IV-PUSH 12/12/25 21:59 10 ml QSHIFT ANIBAL Administration Trazodone HCl 50 mg 12/12/24 18:24 12/12/24 22:45 Trazodone 50 Mg Tablet PO 12/12/25 18:23 50 mg QHS PRN Administration Insomnia A&P - Hospitalist Assessment/Plan (1) Atrial fibrillation with RVR: (2) Falls: Plan Mr. Mendes is an 84-year-old male with PMH of HTN, hypothyroidism, BPH, chronic indwelling Wellington catheter, history of multiple back surgeries including lumbar fusion, recently found to L1 compression fracture, A-fib on Eliquis, hypothyroidism who presents from home with multiple falls. Patient is not able to care for himself at home given the amount of times patient has been falling,and this is even more high risk in the setting of Eliquis therapy. He does present in A-fib RVR. Diltiazem drip is in place. Will add metoprolol to tartrate 25 mg twice daily. Hope to wean off of diltiazem drip with metoprolol initiated. Will consult cardiology and obtain echocardiogram for furtherassessment.. Urine cultures preliminarily growing Klebsiella. CODE STATUS: Full code DVT prophylaxis: Eliquis, will continue to discuss with patient regarding his high risk given his frequent falls. Continuing blood thinner for now. Hemoglobin is lower today. Obtain iron studies Documented By: Akash Mccartney MD 5 [id number] Signed By: <Electronically signed by Akash Mccartney MD> 12/13/24 1704 Progress Note Author Akash Mccartney [facility] Date/TimeOctober 2024 5:22pm [place] [address] Hospitalist Progress Note Signed Patient: Irineo Mendes Jr MR# : [id number] : 1940 Acct:[id number] Age/Sex: 84 / M Adm Date: 5 Loc: 4N Room: [address] [place] [address] Type: ADM IN Attending Dr: Akash Mccartney MD Copies to: ~ Date of Service: 12/14/2024 Subjective Subjective Narrative: No acute events noted overnight. Patient remains hemodynamically stable. No new evidence of bleeding noted. He does continue to work with physical and Occupational Therapy without issue. Discharge toskilled nursing facility tomorrow. Exam Physical Exam Vital Signs: Temp Pulse Resp BP Pulse Ox O2 Del Method 98.9 F 86 18 126/74 95 Room Air 12/14/24 10:46 12/14/24 14:24 12/14/24 14:24 12/14/24 10:46 12/14/24 10:46 12/14/24 10:46 Narrative: Constitutional: Frail, elderly WM, does not appear to be in acute distress HEENT: Dry mucous membranes, neck supple, no JVD Cardiovascular: Normal rate, irregular rhythm, no M/R/G Respiratory: Clear to auscultation bilaterally, no wheezes, rales or rhonchi GI: Soft, NTND, normoactive bowel sounds : Deferred Extremities: Bruising noted throughout upper and lower extremities bilaterally Neuro: AAO x 3, no focal deficits Skin: Bruising noted throughout extremities. Strength appears 5/5 Psych: Calm, cooperative and conversant Objective Lab Results 12/14/24 04:32 12/14/24 04:32 Microbiology Results Microbiology 12/12/24 13:19 Urine - Wellington Catheter Urine Culture - Preliminary Klebsiella pneumoniae Meds Allergies and Active Meds Allergies fentanyl Allergy (Unknown, Verified 12/12/24 12:23) Dizziness, loopy indomethacin (From Indocin) Allergy (Unknown, Verified 12/12/24 12:23) Dizziness zolpidem (From Ambien) Allergy (Unknown, Verified 12/12/24 12:23) Confusion, memory loss Penicillins Allergy (Verified 12/12/24 12:23) Weakness Active Meds: Active Medications Generic Name Dose Route Start Last Admin Trade Name Freq PRN Reason Stop Dose Admin Acetaminophen 650 mg 12/12/24 18:19 12/14/24 08:04 Acetaminophen 325 Mg Tablet PO 12/12/25 18:18 650 mg Q6HR PRN Administration Pain Scale 1 - 3 or fever Albuterol/Ipratropium 3 ml 12/12/24 20:30 12/14/24 14:24 Ipratropium/Albuterol 0.5-3 Mg 3 Ml Ampul.Neb INHALATION 12/12/25 20:29 3 ml TID ANIBAL Administration Allopurinol 300 mg 12/13/24 09:00 12/14/24 08:04 Allopurinol 300 Mg Tablet PO 12/13/25 08:59 300 mg DAILY ANIBAL Administration Atorvastatin Calcium 40 mg 12/12/24 22:00 12/13/24 21:43 Atorvastatin 40 Mg Tablet PO 12/12/25 21:59 40 mg QHS ANIBAL Administration Budesonide 0.5 mg 12/12/24 21:00 12/14/24 06:26 Budesonide 0.5 Mg/2 Ml Ampul.Neb INHALATION 12/12/25 20:59 0.5 mg BID ANIBAL Administration Bumetanide 1 mg 12/13/24 09:00 12/14/24 08:03 Bumetanide 1 Mg Tablet PO 12/13/25 08:59 1 mg DAILY ANIBAL Administration Diclofenac Sodium 2 gm 12/13/24 17:45 Diclofenac Sodium 1% Gel 100 Gm Tube TOPICAL 12/13/25 17:44 QID PRN Joint pains Diltiazem HCl 100 mg in 100 mls @ 10 mls/hr 12/12/24 12:45 12/14/24 14:46 Cardizem IV 12/12/25 12:44 Not Given .Q10H ANIBAL Protocol 10 MG/HR Magnesium Sulfate 2 gm in 50 mls @ 25 mls/hr 12/12/24 18:19 Magnesium Sulf 2gm-*Swfi* IV 12/12/25 18:18 DAILY PRN Magnesium Level < 1.7 Levothyroxine Sodium 150 mcg 12/13/24 06:30 12/14/24 06:14 Levothyroxine 150 Mcg Tablet PO 12/13/25 06:29 150 mcg DAILY.0630 ANIBAL Administration Magnesium Oxide 400 mg 12/12/24 22:00 12/13/24 21:44 Magnesium Oxide 400 Mg Tablet PO 12/12/25 21:59 400 mg QHS ANIBAL Administration Non-Formulary Medication 3 mg 12/12/24 22:00 12/13/24 23:08 Eszopiclone [Lunesta] PO 12/12/25 21:59 Not Given QHS [facility] Nystatin 1 applic 12/12/24 21:00 12/14/24 08:04 Nystatin 100,000 Unit/Gram Powder 15 Gm Bottle TOPICAL 12/12/25 20:59 1 applic BID ANIBAL Administration Ondansetron HCl 4 mg 12/12/24 18:19 Ondansetron 4 Mg/2 Ml Vial IV-PUSH 12/12/25 18:18 Q6H PRN Nausea And Vomiting Potassium Chloride 40 meq 12/12/24 18:19 Potassium Chloride Er 20 Meq Tab.Er.Prt PO 12/12/25 18:18 DAILY PRN Hypokalemia Potassium Chloride 20 meq 12/12/24 22:00 12/13/24 21:43 Potassium Chloride Er 20 Meq Tab.Er.Prt PO 12/12/25 21:59 20 meq QHS [facility] Administration Pramipexole Dihydrochloride 0.25 mg 12/12/24 18:24 Pramipexole 0.25 Mg Tablet PO 12/12/25 18:23 DAILY PRN tremor(s) Sodium Chloride 0 ml 12/12/24 12:23 12/12/24 13:13 Sodium Chloride 0.9 % 10 Ml Syringe IV-PUSH 12/12/25 12:22 10 ml PRN PRN Administration Flush Sodium Chloride 0 ml 12/12/24 22:00 12/14/24 14:16 Sodium Chloride 0.9 % 10 Ml Syringe IV-PUSH 12/12/25 21:59 Not Given QSHIFT [facility] Trazodone HCl 50 mg 12/12/24 18:24 12/12/24 22:45 Trazodone 50 Mg Tablet PO 12/12/25 18:23 50 mg QHS PRN Administration Insomnia A&P - Hospitalist Assessment/Plan (1) Atrial fibrillation with RVR: (2) Falls: Plan Mr. Mendes is an 84-year-old male with PMH of HTN, hypothyroidism, BPH, chronic indwelling Wellington catheter, history of multiple back surgeries including lumbar fusion, recently found to L1 compression fracture, A-fib on Eliquis, hypothyroidism who presents from home with multiple falls. Urinary tract infection In the setting of chronic indwelling Wellington catheter Urine culture is growing Klebsiella. Very likely contributing to falls, but may also consider this is colonization of patient's chronic indwelling Wellington catheter -Start Bactrim, plan for 7-day course of antibiotic treatment L1 compression fracture Recurrent falls - Continue PT/OT, plan for discharge to group home facility for further therapy needs A-fib on Eliquis Cardiac medications have been adjusted by cardiology team. They discussed with patient's family andbelieve that patient may be a good candidate for a Watchman device. - Eliquis on hold - Beta-saroj on hold for now Other chronic medical conditions noted below, continue home regimens unless otherwise specified: Hypertension Pulmonary hypertension Hypothyroidism BPH CODE STATUS: Full code DVT prophylaxis: Eliquis placed on hold. Cardiology had discussion with patient's family regarding this. Will consider Watchman device in the near future Documented By: Akash Mccartney MD 5 [id number] Signed By: <Electronically signed by Akash Mccartney MD> 12/14/24 1722 Progress Note Author Akash Mccartney [facility] Date/TimeOctober 2024 4:39pm [place] [address] Hospitalist Progress Note Signed Patient: Irineo Mendes Jr MR# : [id number] : 1940 Acct:[id number] Age/Sex: 84 / M Adm Date: 5 Loc: 4N Room: [address] [place] [address] Type: ADM IN Attending Dr: Akash Mccartney MD Copies to: ~ Date of Service: 12/15/2024 Subjective Subjective Narrative: No acute events noted overnight. Patient remains hemodynamically stable. No new evidence of bleeding noted. He does continue to work with physical and Occupational Therapy without issue. Urine culture is growing ESBL Klebsiella, which is not sensitive to Bactrim. He does remain afebrile and hemodynamically stable Exam Physical Exam Vital Signs: Temp Pulse Resp BP Pulse Ox O2 Del Method 98.9 F 100 16 125/55 L 97 Room Air 12/15/24 15:37 12/15/24 15:37 12/15/24 15:37 12/15/24 15:37 12/15/24 15:37 12/15/24 15:37 Narrative: Constitutional: Frail, elderly WM, does not appear to be in acute distress HEENT: Dry mucous membranes, neck supple, no JVD Cardiovascular: Normal rate, irregular rhythm, no M/R/G Respiratory: Clear to auscultation bilaterally, no wheezes, rales or rhonchi GI: Soft, NTND, normoactive bowel sounds : Deferred Extremities: Bruising noted throughout upper and lower extremities bilaterally Neuro: AAO x 3, no focal deficits Skin: Bruising noted throughout extremities. Strength appears 5/5 Psych: Calm, cooperative and conversant Objective Lab Results 12/15/24 06:23 12/15/24 06:23 Microbiology Results Microbiology 12/12/24 13:19 Urine - Wellington Catheter Urine Culture - Final Klebsiella pneumoniae (ESBL) Meds Allergies and Active Meds Allergies fentanyl Allergy (Unknown, Verified 12/12/24 12:23) Dizziness, loopy indomethacin (From Indocin) Allergy (Unknown, Verified 12/12/24 12:23) Dizziness zolpidem (From Ambien) Allergy (Unknown, Verified 12/12/24 12:23) Confusion, memory loss Penicillins Allergy (Verified 12/12/24 12:23) Weakness Active Meds: Active Medications Generic Name Dose Route Start Last Admin Trade Name Freq PRN Reason Stop Dose Admin Acetaminophen 650 mg 12/12/24 18:19 12/15/24 11:13 Acetaminophen 325 Mg Tablet PO 12/12/25 18:18 650 mg Q6HR PRN Administration Pain Scale 1 - 3 or fever Albuterol/Ipratropium 3 ml 12/12/24 20:30 12/15/24 13:02 Ipratropium/Albuterol 0.5-3 Mg 3 Ml Ampul.Neb INHALATION 12/12/25 20:29 3 ml TID ANIBAL Administration Allopurinol 300 mg 12/13/24 09:00 12/15/24 09:01 Allopurinol 300 Mg Tablet PO 12/13/25 08:59 300 mg DAILY ANIBAL Administration Atorvastatin Calcium 40 mg 12/12/24 22:00 12/14/24 22:17 Atorvastatin 40 Mg Tablet PO 12/12/25 21:59 40 mg QHS ANIBAL Administration Budesonide 0.5 mg 12/12/24 21:00 12/15/24 07:50 Budesonide 0.5 Mg/2 Ml Ampul.Neb INHALATION 12/12/25 20:59 0.5 mg BID ANIBAL Administration Bumetanide 1 mg 12/13/24 09:00 12/15/24 09:01 Bumetanide 1 Mg Tablet PO 12/13/25 08:59 1 mg DAILY ANIBAL Administration Diclofenac Sodium 2 gm 12/13/24 17:45 Diclofenac Sodium 1% Gel 100 Gm Tube TOPICAL 12/13/25 17:44 QID PRN Joint pains Ertapenem 1 each 12/15/24 15:54 Ertapenem - Pharmacy Dosing MISCELLANE ONCE PRN ZZ.Pharmacy Consult Protocol Magnesium Sulfate 2 gm in 50 mls @ 25 mls/hr 12/12/24 18:19 Magnesium Sulf 2gm-*Swfi* IV 12/12/25 18:18 DAILY PRN Magnesium Level < 1.7 Levothyroxine Sodium 150 mcg 12/13/24 06:30 12/15/24 06:09 Levothyroxine 150 Mcg Tablet PO 12/13/25 06:29 150 mcg DAILY.0630 ANIBAL Administration Magnesium Oxide 400 mg 12/12/24 22:00 12/14/24 22:17 Magnesium Oxide 400 Mg Tablet PO 12/12/25 21:59 400 mg QHS ANIBAL Administration Non-Formulary Medication 3 mg 12/12/24 22:00 12/14/24 22:26 Eszopiclone [Lunesta] PO 12/12/25 21:59 Not Given QHS ANIBAL Nystatin 1 applic 12/12/24 21:00 12/15/24 09:01 Nystatin 100,000 Unit/Gram Powder 15 Gm Bottle TOPICAL 12/12/25 20:59 1 applic BID ANIBAL Administration Ondansetron HCl 4 mg 12/12/24 18:19 Ondansetron 4 Mg/2 Ml Vial IV-PUSH 12/12/25 18:18 Q6H PRN Nausea And Vomiting Potassium Chloride 40 meq 12/12/24 18:19 Potassium Chloride Er 20 Meq Tab.Er.Prt PO 12/12/25 18:18 DAILY PRN Hypokalemia Potassium Chloride 20 meq 12/12/24 22:00 12/14/24 22:16 Potassium Chloride Er 20 Meq Tab.Er.Prt PO 12/12/25 21:59 20 meq QHS ANIBAL Administration Pramipexole Dihydrochloride 0.25 mg 12/12/24 18:24 Pramipexole 0.25 Mg Tablet PO 12/12/25 18:23 DAILY PRN tremor(s) Sodium Chloride 0 ml 12/12/24 12:23 12/12/24 13:13 Sodium Chloride 0.9 % 10 Ml Syringe IV-PUSH 12/12/25 12:22 10 ml PRN PRN Administration Flush Sodium Chloride 0 ml 12/12/24 22:00 12/15/24 13:45 Sodium Chloride 0.9 % 10 Ml Syringe IV-PUSH 12/12/25 21:59 Not Given QSHIFT ANIBAL Trazodone HCl 50 mg 12/12/24 18:24 12/14/24 22:17 Trazodone 50 Mg Tablet PO 12/12/25 18:23 50 mg QHS PRN Administration Insomnia A&P - Hospitalist Assessment/Plan (1) Atrial fibrillation with RVR: (2) Falls: Plan Mr. Mendes is an 84-year-old male with PMH of HTN, hypothyroidism, BPH, chronic indwelling Wellington catheter, history of multiple back surgeries including lumbar fusion, recently found to L1 compression fracture, A-fib on Eliquis, hypothyroidism who presents from home with multiple falls. ESBL Klebsiella complicated urinary tract infection In the setting of chronic indwelling Wellington catheter Urine culture is growing Klebsiella. Very likely contributing to falls, was considering colonization versus true infection, but with the patient's severe symptomatology and weakness, will give a course of antibiotics - Adjust Bactrim to IV meropenem L1 compression fracture Recurrent falls - Continue PT/OT, plan for discharge to group home facility for further therapy needs A-fib on Eliquis Cardiac medications have been adjusted by cardiology team. They discussed with patient's family andbelieve that patient may be a good candidate for a Watchman device. - Eliquis on hold - Beta-saroj on hold for now per cardio Other chronic medical conditions noted below, continue home regimens unless otherwise specified: Hypertension Pulmonary hypertension Hypothyroidism BPH CODE STATUS: Full code DVT prophylaxis: Eliquis placed on hold. Cardiology had discussion with patient's family regarding this. Can consider Watchman device in the near future Documented By: Akash Mccartney MD 5 [id number] Signed By: <Electronically signed by Akash Mccartney MD> 12/15/24 1639 Progress Note Author Akash Mccartney [facility] Date/TimeOctober 2024 9:46pm [place] [address] Hospitalist Progress Note Signed Patient: Irineo Mendes Jr MR# : [id number] : 1940 Acct:[id number] Age/Sex: 84 / M Adm Date: 5 Loc: Room: [address] [place] [address] Type: ADM IN Attending Dr: Akash Mccartney MD Copies to: ~ Date of Service: 12/16/2024 Subjective Subjective Narrative: No acute events noted overnight. Patient resting comfortably on my assessment. His mood is generally down, but otherwise he has no new complaints. He has chronic joint pains throughout, but notes nothing in particular. Bedside RN notes no major issues. Exam Physical Exam Vital Signs: Temp Pulse Resp BP Pulse Ox O2 Del Method 99 F 107 H 18 129/77 97 Room Air 12/16/24 20:04 12/16/24 20:04 12/16/24 20:04 12/16/24 20:04 12/16/24 20:04 12/16/24 20:04 Narrative: Constitutional: Frail, elderly WM, does not appear to be in acute distress HEENT: Dry mucous membranes, neck supple, no JVD Cardiovascular: Normal rate, irregular rhythm, no M/R/G Respiratory: Clear to auscultation bilaterally, no wheezes, rales or rhonchi GI: Soft, NTND, normoactive bowel sounds : Deferred Extremities: Bruising noted throughout upper and lower extremities bilaterally Neuro: AAO x 3, no focal deficits Skin: Bruising noted throughout extremities. Strength appears 5/5 throughout Psych: Calm, cooperative and conversant Objective Lab Results 12/15/24 06:23 12/15/24 06:23 Meds Allergies and Active Meds Allergies fentanyl Allergy (Unknown, Verified 12/12/24 12:23) Dizziness, loopy indomethacin (From Indocin) Allergy (Unknown, Verified 12/12/24 12:23) Dizziness zolpidem (From Ambien) Allergy (Unknown, Verified 12/12/24 12:23) Confusion, memory loss Penicillins Allergy (Verified 12/12/24 12:23) Weakness Active Meds: Active Medications Generic Name Dose Route Start Last Admin Trade Name Freq PRN Reason Stop Dose Admin Acetaminophen 650 mg 12/12/24 18:19 12/16/24 17:02 Acetaminophen 325 Mg Tablet PO 12/12/25 18:18 650 mg Q6HR PRN Administration Pain Scale 1 - 3 or fever Albuterol/Ipratropium 3 ml 12/12/24 20:30 12/16/24 20:42 Ipratropium/Albuterol 0.5-3 Mg 3 Ml Ampul.Neb INHALATION 12/12/25 20:29 3 ml TID ANIBAL Administration Allopurinol 300 mg 12/13/24 09:00 12/16/24 09:29 Allopurinol 300 Mg Tablet PO 12/13/25 08:59 300 mg DAILY ANIBAL Administration Atorvastatin Calcium 40 mg 12/12/24 22:00 12/15/24 21:58 Atorvastatin 40 Mg Tablet PO 12/12/25 21:59 40 mg QHS ANIBAL Administration Budesonide 0.5 mg 12/12/24 21:00 12/16/24 20:42 Budesonide 0.5 Mg/2 Ml Ampul.Neb INHALATION 12/12/25 20:59 0.5 mg BID ANIBAL Administration Bumetanide 1 mg 12/13/24 09:00 12/16/24 09:29 Bumetanide 1 Mg Tablet PO 12/13/25 08:59 1 mg DAILY ANIBAL Administration Diclofenac Sodium 2 gm 12/13/24 17:45 Diclofenac Sodium 1% Gel 100 Gm Tube TOPICAL 12/13/25 17:44 QID PRN Joint pains Ertapenem 1 each 12/15/24 15:54 Ertapenem - Pharmacy Dosing MISCELLANE ONCE PRN ZZ.Pharmacy Consult Protocol Magnesium Sulfate 2 gm in 50 mls @ 25 mls/hr 12/12/24 18:19 Magnesium Sulf 2gm-*Swfi* IV 12/12/25 18:18 DAILY PRN Magnesium Level < 1.7 Ertapenem 1 gm in 100 mls @ 200 mls/hr 12/15/24 16:15 12/16/24 17:54 Invanz IV Infused Q24H ANIBAL Infusion Levothyroxine Sodium 150 mcg 12/13/24 06:30 12/16/24 06:51 Levothyroxine 150 Mcg Tablet PO 12/13/25 06:29 150 mcg DAILY.0630 ANIBAL Administration Magnesium Oxide 400 mg 12/12/24 22:00 12/15/24 22:00 Magnesium Oxide 400 Mg Tablet PO 12/12/25 21:59 400 mg QHS ANIBAL Administration Non-Formulary Medication 3 mg 12/12/24 22:00 12/15/24 21:59 Eszopiclone [Lunesta] PO 12/12/25 21:59 Not Given QHS ANIBAL Nystatin 1 applic 12/12/24 21:00 12/16/24 09:29 Nystatin 100,000 Unit/Gram Powder 15 Gm Bottle TOPICAL 12/12/25 20:59 1 applic BID ANIBAL Administration Ondansetron HCl 4 mg 12/12/24 18:19 Ondansetron 4 Mg/2 Ml Vial IV-PUSH 12/12/25 18:18 Q6H PRN Nausea And Vomiting Potassium Chloride 40 meq 12/12/24 18:19 Potassium Chloride Er 20 Meq Tab.Er.Prt PO 12/12/25 18:18 DAILY PRN Hypokalemia Potassium Chloride 20 meq 12/12/24 22:00 12/15/24 21:59 Potassium Chloride Er 20 Meq Tab.Er.Prt PO 12/12/25 21:59 20 meq QHS ANIBAL Administration Pramipexole Dihydrochloride 0.25 mg 12/12/24 18:24 Pramipexole 0.25 Mg Tablet PO 12/12/25 18:23 DAILY PRN tremor(s) Sodium Chloride 0 ml 12/12/24 12:23 12/12/24 13:13 Sodium Chloride 0.9 % 10 Ml Syringe IV-PUSH 12/12/25 12:22 10 ml PRN PRN Administration Flush Sodium Chloride 0 ml 12/12/24 22:00 12/16/24 15:39 Sodium Chloride 0.9 % 10 Ml Syringe IV-PUSH 12/12/25 21:59 Not Given QSHIFT ANIBAL Trazodone HCl 50 mg 12/12/24 18:24 12/14/24 22:17 Trazodone 50 Mg Tablet PO 12/12/25 18:23 50 mg QHS PRN Administration Insomnia A&P - Hospitalist Assessment/Plan (1) Atrial fibrillation with RVR: (2) Falls: Plan Mr. Mendes is an 84-year-old male with PMH of HTN, hypothyroidism, BPH, chronic indwelling Wellington catheter, history of multiple back surgeries including lumbar fusion, recently found to L1 compression fracture, A-fib on Eliquis, hypothyroidism who presents from home with multiple falls. ESBL Klebsiella complicated urinary tract infection In the setting of chronic indwelling Wellington catheter Urine culture is growing Klebsiella. Very likely contributing to falls, was considering colonization versus true infection, but with the patient's severe symptomatology and weakness, will give a course of antibiotics - Adjust Bactrim to IV meropenem, day 2 L1 compression fracture Recurrent falls - Continue PT/OT, plan for discharge to group home facility for further therapy needs A-fib on Eliquis Cardiac medications have been adjusted by cardiology team. They discussed with patient's family andbelieve that patient may be a good candidate for a Watchman device. - Eliquis on hold - Beta-saroj on hold for now per cardio Other chronic medical conditions noted below, continue home regimens unless otherwise specified: Hypertension Pulmonary hypertension Hypothyroidism BPH CODE STATUS: Full code DVT prophylaxis: Eliquis placed on hold. Cardiology had discussion with patient's family regarding this. Can consider Watchman device in the near future Documented By: Akash Mccartney MD [id number] Signed By: <Electronically signed by Akash Mccartney MD> 12/16/242145 Progress Note Author Michele Knight [facility] Date/TimeOctober 2024 8:35pm [place] [address] Hospitalist Progress Note Signed Patient: Irineo Mendes Jr MR# : [id number] : 1940 Acct:[id number] Age/Sex: 84 / M Adm Date: 5 Loc: 4N Room: 0K4792-0 Type: ADM IN Attending Dr: Michele Knight MD Copies to: ~ Date of Service: 12/17/2024 Subjective Subjective Narrative: Comfortable out of bed in chair without complaints at present, denies any suprapubic tenderness. Self aware of dementia hx. Exam Physical Exam Vital Signs: Temp Pulse Resp BP Pulse Ox O2 Del Method 97.5 F L 112 H 20 124/80 97 Room Air 12/17/24 12:00 12/17/24 14:52 12/17/24 14:52 12/17/24 12:00 12/17/24 12:00 12/17/24 12:00 Narrative: General: cooperative and tired appearing Orientation: alert, awake and oriented x3 Head: normal to inspection Neck: normal visual inspection Cardio: no JVD, fast irregular rate, irregular rhythm Chest palpation & inspection: normal inspection of the chest Resp Effort & Inspection: normal respiratory effort Abd: soft, non-tender, non-distended, wellington catheter in place Extremities: Warm well perfused, no edema Objective Lab Results 12/17/24 08:13 12/17/24 08:13 Meds Allergies and Active Meds Allergies fentanyl Allergy (Unknown, Verified 12/12/24 12:23) Dizziness, loopy indomethacin (From Indocin) Allergy (Unknown, Verified 12/12/24 12:23) Dizziness zolpidem (From Ambien) Allergy (Unknown, Verified 12/12/24 12:23) Confusion, memory loss Penicillins Allergy (Verified 12/12/24 12:23) Weakness Active Meds: Active Medications Generic Name Dose Route Start Last Admin Trade Name Freq PRN Reason Stop Dose Admin Acetaminophen 650 mg 12/12/24 18:19 12/17/24 06:50 Acetaminophen 325 Mg Tablet PO 12/12/25 18:18 650 mg Q6HR PRN Administration Pain Scale 1 - 3 or fever Albuterol/Ipratropium 3 ml 12/12/24 20:30 12/17/24 14:43 Ipratropium/Albuterol 0.5-3 Mg 3 Ml Ampul.Neb INHALATION 12/12/25 20:29 3 ml TID ANIBAL Administration Allopurinol 300 mg 12/13/24 09:00 12/17/24 09:15 Allopurinol 300 Mg Tablet PO 12/13/25 08:59 300 mg DAILY ANIBAL Administration Atorvastatin Calcium 40 mg 12/12/24 22:00 12/16/24 21:24 Atorvastatin 40 Mg Tablet PO 12/12/25 21:59 40 mg QHS ANIBAL Administration Budesonide 0.5 mg 12/12/24 21:00 12/17/24 07:48 Budesonide 0.5 Mg/2 Ml Ampul.Neb INHALATION 12/12/25 20:59 0.5 mg BID ANIBAL Administration Bumetanide 1 mg 12/13/24 09:00 12/17/24 09:14 Bumetanide 1 Mg Tablet PO 12/13/25 08:59 1 mg DAILY ANIBAL Administration Diclofenac Sodium 2 gm 12/13/24 17:45 Diclofenac Sodium 1% Gel 100 Gm Tube TOPICAL 12/13/25 17:44 QID PRN Joint pains Ertapenem 1 each 12/15/24 15:54 Ertapenem - Pharmacy Dosing MISCELLANE ONCE PRN ZZ.Pharmacy Consult Protocol Magnesium Sulfate 2 gm in 50 mls @ 25 mls/hr 12/12/24 18:19 Magnesium Sulf 2gm-*Swfi* IV 12/12/25 18:18 DAILY PRN Magnesium Level < 1.7 Ertapenem 1 gm in 100 mls @ 200 mls/hr 12/15/24 16:15 12/16/24 17:54 Invanz IV Infused Q24H ANIBAL Infusion Levothyroxine Sodium 150 mcg 12/13/24 06:30 12/17/24 05:48 Levothyroxine 150 Mcg Tablet PO 12/13/25 06:29 150 mcg DAILY.0630 ANIBAL Administration Magnesium Oxide 400 mg 12/12/24 22:00 12/16/24 21:24 Magnesium Oxide 400 Mg Tablet PO 12/12/25 21:59 400 mg QHS ANIBAL Administration Non-Formulary Medication 3 mg 12/12/24 22:00 12/16/24 21:27 Eszopiclone [Lunesta] PO 12/12/25 21:59 Not Given QHS ANIBAL Nystatin 1 applic 12/12/24 21:00 12/17/24 09:15 Nystatin 100,000 Unit/Gram Powder 15 Gm Bottle TOPICAL 12/12/25 20:59 1 applic BID ANIBAL Administration Ondansetron HCl 4 mg 12/12/24 18:19 Ondansetron 4 Mg/2 Ml Vial IV-PUSH 12/12/25 18:18 Q6H PRN Nausea And Vomiting Potassium Chloride 40 meq 12/12/24 18:19 Potassium Chloride Er 20 Meq Tab.Er.Prt PO 12/12/25 18:18 DAILY PRN Hypokalemia Potassium Chloride 20 meq 12/12/24 22:00 12/16/24 21:24 Potassium Chloride Er 20 Meq Tab.Er.Prt PO 12/12/25 21:59 20 meq QHS ANIBAL Administration Pramipexole Dihydrochloride 0.25 mg 12/12/24 18:24 Pramipexole 0.25 Mg Tablet PO 12/12/25 18:23 DAILY PRN tremor(s) Sodium Chloride 0 ml 12/12/24 12:23 12/12/24 13:13 Sodium Chloride 0.9 % 10 Ml Syringe IV-PUSH 12/12/25 12:22 10 ml PRN PRN Administration Flush Sodium Chloride 0 ml 12/12/24 22:00 12/17/24 05:48 Sodium Chloride 0.9 % 10 Ml Syringe IV-PUSH 12/12/25 21:59 10 ml QSHIFT ANIBAL Administration Trazodone HCl 50 mg 12/12/24 18:24 12/16/24 21:54 Trazodone 50 Mg Tablet PO 12/12/25 18:23 50 mg QHS PRN Administration Insomnia A&P - Hospitalist Assessment/Plan (1) Atrial fibrillation with RVR: (2) Falls: (3) Stage III pressure ulcer of right heel: Plan: Present on admission, wound nurse treating (4) Pressure ulcer of coccygeal region, stage 2: Plan: Present on admission, wound nurse treating Plan Mr. Mendes is an 84-year-old male with PMH of HTN, hypothyroidism, BPH, chronic indwelling Wellington catheter, history of multiple back surgeries including lumbar fusion, recently found to L1 compression fracture, A-fib on Eliquis, hypothyroidism who presents from home with multiple falls. ESBL Klebsiella complicated urinary tract infection In the setting of chronic indwelling Wellington catheter Urine culture is growing Klebsiella. Very likely contributing to falls, was considering colonization versus true infection, but with the patient's severe symptomatology and weakness, will give a course of antibiotics - Adjust Bactrim to IV meropenem, day 3 plan for 5 days total L1 compression fracture Recurrent falls - Continue PT/OT, plan for discharge to group home facility for further therapy needs A-fib on Eliquis Cardiac medications have been adjusted by cardiology team. They discussed with patient's family andbelieve that patient may be a good candidate for a Watchman device. - Eliquis on hold - Beta-saroj on hold for now per cardio - requested cardiology re-evaluation for HR control, noted starting low dose diltiazem will monitor Other chronic medical conditions noted below, continue home regimens unless otherwise specified: Hypertension Pulmonary hypertension Hypothyroidism BPH CODE STATUS: Full code DVT prophylaxis: Eliquis placed on hold. Cardiology had discussion with patient's family regarding this. Can consider Watchman device in the near future Documented By: Michele Knight MD 12/17/24 1521 Signed By: <Electronically signed by Michele Knight MD> 12/17/242034 [facility] Date/TimeOctober 2024 4:47pm [place] [address] Cardiology Progress Note Signed Patient: Irineo Mendes Jr MR# : [id number] : 1940 Acct:[id number] Age/Sex: 84 / M Adm Date: 5 Loc: Room: [address] [place] [address] Type: ADM IN Attending Dr: Michele Knight MD Copies to: ~ Date of Service: 12/17/2024 Subjective Principal diagnosis: Atrial fibrillation, recent SAH, multiple falls, anemia Interval history: Mr. Mendes is a 84 year old male seen in cardiology consultation at request of hospitalist and in conjunction with Dr. Alfonso, I agree with her evaluation, management, we have interviewed the patient and daughter, jointly, and discussedanticoagulation and options including Watchman device with patient and daughter. Patient presents with PMH of chronic atrial fibrillation on Eliquis, CHF last EF60-65% 01/2022, hypothyroidism, and gout who presented to the ER on 12/12 after multiple falls at home. He reports he does not remember feeling lightheaded or dizzy before, and he denies LOC or hitting his head. One of the falls, he reports, his legs giving out from under him while he was standing at the sink inthe bathroom, and another he reports falling when getting out of bed. He was incontinent of stool as well. Additionally, he was admitted in October also for a fall with small subdural hematoma and L1 compression fracture (cardiology not involved in the October hospitalization). In the ER, he was in AF with RVR around up to 120bpm and started on a Cardizem drip. Blood pressures were normotensive. CT head and neck showed no acute bleed or bony injuries. Labs showed anemia with Hgb 9.6 (baseline around 8.5-9.5), but no leukocytosis or electrolyte abnormalities. Troponin was negative x2. His PT/INR was elevated at 28.3/2.6. Updated echocardiogram is pending, last is from 01/26. Yesterday, he was started on metoprolol tartrate 25mg BID and Cardizem was weened off last night. He remained rate controlled on the metoprolol, but earlier today, he developed bradycardia into the 40s while awake. Cardiac catheterization in May 2016 showed minimal coronary artery disease though he had an EF of35%. He has been on digoxin and carvedilol in the past, but he developed symptomatic bradycardia with that, and it has been stopped for some time. Until this admission, he has been in chronic, rate-controlled AF without medications. A&P: Mr. Mendes is an 84yo male with PMH of chronic AF, CHF, and hypothyroidismwho presented with multiple falls secondary to lumbar radiculopathy, deconditioning, and AF with RVR while on chronic anticoagulation. His [id number] is 4 and HAS-BLED score is also 4. With his recent subdural hematoma in October and continued frequent falls, will hold his Eliquis and discuss with the patient his high risk for bleeding. Had an in depth conversation with patient and daughter (over the phone) about potential for Watchman device, risk, benefits, alternatives and informed decision-making process performed for 30 minutes this afternoon. He would be a good candidate for this. They would liketodiscuss it and will have follow up in the cardiology office. Given his return to bradycardia while on at beta saroj, will hold the metoprolol as welland continue to monitor. Daughter is actually asking about whether this procedure will improve patient's strength and ambulatory capacity which is completely different issue than mitigating bleeding risks with Watchman device; it appears his lumbar back and spinal/peripheral nerve related issues and generalized deconditioning likely themain issue with his falling and weakness. Interim evaluation 12/17/2024: Asked by hospitalist to reconsult on patient withthe above, chronic persistent A-fib and anemia. Please see above consult. Please see previous consults in regards to rate limiting agents, and provoking bradycardia. Patient remains in A-fib with heart rates between 92-115 beats a minute, anemia as previously noted, current hemoglobin 7.9 g/dL. Recommendations: Reinitiate very low-dose diltiazem; no anticoagulation; nothingfurther to add Exam Physical Exam Vital Signs: Temp Pulse Resp BP Pulse Ox O2 Del Method 97.5 F L 112 H 20 124/80 97 Room Air 12/17/24 12:00 12/17/24 14:52 12/17/24 14:52 12/17/24 12:00 12/17/24 12:00 12/17/24 12:00 Objective Labs 12/17/24 08:13 12/17/24 08:13 Labs: Laboratory Results - last 24 hr 12/16/24 12/17/24 12/17/24 20:29 08:13 08:59 Corrected WBC 3.4 L Uncorrected WBC Count 3.4 L RBC 2.74 L Hgb 7.9 L Hct 24.1 L MCV 87.9 MCH 29.0 MCHC 33.0 RDW 18.1 H Plt Count 195 MPV 7.3 Neut % (Auto) 64.7 Lymph % (Auto) 17.9 Jackson % (Auto) 10.4 Eos % (Auto) 6.2 Baso % (Auto) 0.8 Nucleat RBC Rel Count 0.1 Neut # (Auto) 2.2 Lymph # (Auto) 0.6 L Jackson # (Auto) 0.4 Eos # (Auto) 0.2 Baso # (Auto) 0.0 PHA Creatinine Clear 47.08 Sodium 135 L Potassium 3.8 Chloride 103 Carbon Dioxide 26.3 Anion Gap 9.5 BUN 20 Creatinine 1.20 Est GFR (CKD-EPI) > 60.0 Glucose 84 POC Glucose 157 108 POC Glucose Comment Glu2: cleaned meter Calcium 8.4 L A&P - Cardiology (1) Atrial fibrillation with RVR: Code(s): I48.91 - Unspecified atrial fibrillation (2) Falls: Code(s): R29.6 - Repeated falls Plan see above Documented By: Bhupinder Mcintyre DO 12/17/24 8158 Signed By: <Electronically signed by Bhupinder Mcintyre DO> 12/17/24 5263
[2024-12-27] VITALS (9 sets, daily range): BP systolic 127; BP diastolic 64; PULSE 78–84; TEMP 36.9; O2SAT 96–99; BMI 23.9
--- NOTE | 2024-12-27 21:05 | XR_ITS ---
[address] [address] Patient Name: TAVO WALLIS MRN: [id number] date: 1940 Sex: M Assigned Patient Location: ER Current Patient Location: ER Accession/Order Number: [id number] Exam Date: 12/27/2024 21:25 Report Date: 12/27/2024 21:48 At the request of: VIRGINIA WATSON Procedure: XR chest 1V PA CHEST: CLINICAL HISTORY: AMS COMPARISON: 04/13/2024 Enlarged cardiac mediastinal silhouette with perihilar pulmonary vasculature. Right basilar airspace opacity likely small right-sided effusion. No pneumothorax. IMPRESSION: RIGHT BASILAR OPACITY. SUSPECT MILD PULMONARY VASCULAR CONGESTION. Impression dictated by: Palmer Dejesus M.D. 12/27/2024 9:48 PM Dictation Location: [place] [address] Electronically authenticated by: [id number] Y Date: 12/27/2024 21:48
--- NOTE | 2024-12-27 21:05 | ECG_ITS ---
[facility] Test Date: 2024-12-27 Pat Name: TAVO WALLIS Department: Room: - Gender: Male Student Assistant: : 1940 Requested By: [id number] Order Number: [id number] Edna MD: ROWAN OCHOA M.D. Measurements Intervals [place] Rate: 80 P: -[address] [place]: -[address] QRS: 170 QRSD: 80 T: 10 QT: 358 QTc: 394 Interpretive Statements 87412 Atrial fibrillation with aberrant conduction, or ventricular premature complexes 3133 Anterior myocardial infarction, probably old 5120 Possible right ventricular hypertrophy 0102 ARTIFACT PRESENT 9150 abnormal ECG Compared to ECG 04/13/2024 10:51:46 Ventricular premature complex(es) now present Aberrant conduction of supraventricular beat(s) now present Myocardial infarct finding now present Electronically Signed On 12-28-2024 12:24:55 EDT by ROWAN OCHOA M.D.
--- OUTSIDE RECORDS SUMMARY | 2024-12-27 21:05 | XMS_ITS | Clinical Summary ---
Author Organization [facility] Address [address] [place] [address] Phone Care Team Providers Care Printed Circuit Designer Name Role Phone Feliciano Ambrosio Louis HARGROVE Primary Care Provider [phone] Allergies Active AllergyReactionsCriticalityNoted DateCommentsFentanylDizziness,Nausea Only02/16/20233229VjsuihbwpfjbYmkpa98/13/4034MuijdblmnfbPberm92/13/2023Zolpidem Lyibpwl2702/16/2023 Medications MedicationSigDispense QuantityRefillsLast FilledStart DateEnd DateStatus acetaminophen (Tylenol) 325 mg tablet Take 1 tablet (325 mg) by mouth every 6 hours if needed.Active allopurinol (Zyloprim) 300 mg tablet Take 1 tablet (300 mg) by mouth once daily.Active atorvastatin (Lipitor) 40 mg tablet Take 1 tablet (40 mg) by mouth once daily.Active eszopiclone (Lunesta) 3 mg tablet Take 1 tablet (3 mg) by mouth as needed at bedtime.Active levothyroxine (Synthroid, Levoxyl) 150 mcg tablet Take 1 tablet (150 mcg) by mouth once daily.Active oxyCODONE-acetaminophen (Percocet) 5-325 mg tablet Take 1 tablet by mouth 2 times a day.07/08/2022ctive Klor-Con M20 20 mEq ER tablet Take 1 tablet (20 mEq) by mouth once daily.Active traZODone (Desyrel) 50 mg tablet Take 1 tablet (50 mg) by mouth as needed at bedtime.Active bumetanide (Bumex) 1 mg tablet Indications:Edema, unspecifiedTAKE 1 TABLET BY MOUTH EVERY DAY 90 tablet ctive carvedilol (Coreg) 6.25 mg tablet Indications:Heart failure, NYHA class 2 (Multi)Take 1 tablet (6.25 mg) by mouth 2 times daily (morning and late afternoon). 180 tablet 312415Active Eliquis 5 mg tablet Indications:Heart failure, unspecified (Multi),Chronic atrial fibrillation (Multi)TAKE 1 TABLET BY MOUTH TWICE A DAY 180 tablet 5Active magnesium oxide (Mag-Ox) 400 mg (241.3 mg elemental) tablet Indications:Chronic atrial fibrillation (Multi),Essential hypertension, benign, Non-ischemic cardiomyopathy (Multi)Take 1 tablet by mouth once daily. 90 tablet 3095011/27/2025ctive Active Problems ProblemNoted DateDiagnosed DateLong term current use of anticoagulant therapy 02/16/2024MI 30.0-30.9,adult02/16/2024Former ihrktw9902/16/2024hronic atrial uehvnfxbzcqg98/13/2023Echocardiogram hpboibfv29/13/6202Qmnla14/13/2023rimary uvbqokbcixud06/13/2023Heart failure, NYHA class 212Hyperlipemia 02/16/2023Mild CAD02/16/2023 Resolved Problems ProblemNoted DateDiagnosed DateResolved DateNon-ischemic cardiomyopathy Encounters DateTypeDepartmentCare IrcfBcfxsufhpgm58/09/2025Scanned Document [facility] [address] [place] [phone] Scanning, Generic Provider 11/23/2024Refill [address] [address] Irineo Mcintyre DO Chronic atrial fibrillation (Multi); Essential hypertension, benign; Non-ischemic cardiomyopathy (Multi)10/11/2024Telephone [address] [address] Елена Santana RN 10/10/2024Scanned Document [facility] [address] [place] [address] Scanning, Generic Provider 10/08/2024Scanned Document [facility] [address] [place] [address] Scanning, Generic Provider 10/08/2024Telephone [place] [address] [place] [address] Monserrat Frazier, CREW TEAM MEMBER Advice Only10/06/2024Scanned Document [facility] [address] [place] [address] Scanning, Generic Provider 10/05/2024Scanned Document [facility] [address] [place] [address] Scanning, Generic Provider from Last 3 Months Immunizations ImmunizationAdministration DatesNext DueInfluenza, Wbdnlhwtbuu03/01/2019, 11/05/2017,04/07/2016Pneumococcal conjugate vaccine, 13-valent (PREVNAR 13) 04/07/2016 Family History Medical HistoryRelationNameCommentsNo Known ProblemsMotherRelationNameStatus CommentsMother Social History Tobacco UseTypesPacks/DayYears UsedDateSmoking Tobacco: FormerCigarettesQuit: 1980Smokeless Tobacco: Never Tobacco Cessation:Counseling Given: Yes Alcohol UseStandard Drinks/WeekCommentsYes3 (1 standard drink = 0.6 oz pure alcohol)Sex and Gender InformationValueDate RecordedSex Assigned at BirthNot on fileLegal DteOyyj62/26/2022 2:53 PM ESTGender IdentityNot on fileSexual OrientationNot on file Last Filed Vital Signs Vital SignReadingTime TakenCommentsBlood Ixlejcwd825/8602/16/2024 3:20 PM EST Lwbck62146/12/2024 3:20 PM ESTTemperature--Respiratory Rate--Oxygen Saturation-- Inhaled Oxygen Concentration--Lzgqor27.6 kg (191 lb)02/16/2024 3:20 PM ESTHeight 167.6 cm (5' 6 )02/16/2024 3:20 PM ESTBody Mass Index30.8302/16/2024 3:20 PM EST Plan of Treatment DateTypeDepartmentCare Team (Latest Contact Info)Hifdtmwlbko79/09/2025 10:00 AM ESTOffice Visit [facility] [address] [facility] [address] [place] [address] Enedelia Gomez, NAIL STICKER-WASTE WATER PLANT OPERATOR [address] [facility] [address] [place] [address] Health MaintenanceDue DateLast DoneCommentsCreatinine Level1941Lipid Panel 1941Medicare Annual Wellness Visit (AWV)2Potassium Level 1940TSH Level2Diabetes Bxrehbhps02/11/1960DTaP/Tdap/Td Vaccines (1 - Tdap)07/16/1963Zoster Vaccines (1 of 2)07/16/1991Pneumococcal Vaccine (2 of 2 - PPSV23, PCV20, or PCV21)RSV High Risk: (Elderly (60+) or Population) (1 - 1-dose 75+ series)2016Influenza Vaccine (#1) /, 12/24/2021, 12/22/2019, Additional history existsCOVID-19 Vaccine ( season)/, 02/18/2021, 05/28/2020, Additional history dryeohVsxhtncjrxivry33/09/202610/11/2024, 02/23/2024, 01/10/2022, Additional history existsHIB VaccinesAged OutNo longer eligible based on patient's age to complete this topicHPV VaccinesAged OutNo longer eligible based on patient's age to complete this topicHepatitis A VaccinesAged OutNo longer eligible based on patient's age to complete this topicHepatitis B VaccinesAged OutNo longer eligible based on patient's age to complete this topic IPV VaccinesAged OutNo longer eligible based on patient's age to complete this topicMeningococcal VaccineAged OutNo longer eligible based on patient's age to complete this topicRotavirus VaccinesAged OutNo longer eligible based on patient's age to complete this topic Procedures Procedure NamePriorityDate/TimeAssociated DiagnosisCommentsECHOCARDIOGRAM 12/13/2024 OUTSIDE IMAGING SCAN10/06/2024 from Last 3 Months Results * Echocardiogram (12/13/2024) Narrative 12/13/2024 Ordered by an unspecified provider. Authorizing ProviderResult TypeResult StatusGeneric Provider ScanningCV ECHO PROCEDURESFinal Result * OUTSIDE IMAGING SCAN (10/06/2024)Anatomical RegionLateralityModalityOther Narrative 10/06/2024 Ordered by an unspecified provider. Authorizing ProviderResult TypeResult StatusGeneric Provider ScanningOUTSIDE SCANFinal Result from Last 3 Months Insurance Care Teams Team MemberRelationshipSpecialtyStart DateEnd Date Feliciano Ambrosio DO PCP - Dqlgmbq07/1/21
--- OUTSIDE RECORDS SUMMARY | 2024-12-27 21:05 | XMS_ITS | Encounter Summary ---
Author Organization [facility] Address [address] [place] [address] Phone Care Team Providers Care Opening Machine Cleaner Name Role Phone Feliciano Ambrosio DO Primary Care Provider [phone] Encounter Details DateTypeDepartmentCare Team (Latest Contact Info)Enzknsyjhdh64/09/2025Scanned Document [facility] [address] [place] [phone] Scanning, Generic Provider Social History Tobacco UseTypesPacks/DayYears UsedDateSmoking Tobacco: FormerCigarettesQuit: 1980Smokeless Tobacco: NeverAlcohol UseStandard Drinks/WeekCommentsYes3 (1 standard drink = 0.6 oz pure alcohol)Sex and Gender InformationValueDate RecordedSex Assigned at BirthNot on fileLegal NaxMdsq02/26/2022 2:53 PM EST Gender IdentityNot on fileSexual OrientationNot on filedocumented as of this encounter Plan of Treatment DateTypeDepartmentCare Team (Latest Contact Info)Plylmtxbqwk03/09/2025 10:00 AM ESTOffice Visit [facility] [address] [facility] [address] [place] [address] Enedelia Gomez, ADDING MACHINE OPERATOR-SET UP MACHINIST [address] [facility] [address] [place] [address] documented as of this encounter Procedures Procedure NamePriorityDate/TimeAssociated DiagnosisCommentsECHOCARDIOGRAM 12/13/2024 documented in this encounter Results * Echocardiogram (12/13/2024) Narrative 12/13/2024 Ordered by an unspecified provider. Authorizing ProviderResult TypeResult StatusGeneric Provider ScanningCV ECHO PROCEDURESFinal Result documented in this encounter Visit Diagnoses Not on filedocumented in this encounter Additional Health Concerns AssessmentNoted TimeA fall risk assessment has been completed for the patient 07/13/2023 9:57 AM EDTdocumented as of this encounter Care Teams Team MemberRelationshipSpecialtyStart DateEnd Date Feliciano Ambrosio DO PCP - Bimpmvm84/1/21documented as of this encounter
--- OUTSIDE RECORDS SUMMARY | 2024-12-27 21:05 | XMS_ITS | Clinical Summary ---
Author Organization [facility] Address [address], [address] [place] [address] Care Team Providers Care Bartacker Name Role Phone Feliciano Ambrosio DO Primary Care Provider Allergies Active AllergyReactionsCriticalityNoted BfbfKzmavkrfYqdhbdhmCsd27/29/2018 Can't remember goofy SyjeuqhwsnccPgn63/29/2018 Can't remember goofy and agitated XngahzhreatKno28/29/2018 As child ZolpidemOther (See Comments)Low09/23/2020 Can't remember goofy Medications MedicationSigDispense QuantityRefillsLast FilledStart DateEnd DateStatus traZODone (DESYREL) 50 MG tablet Take 1 tablet by mouth nightlyActive atorvastatin (LIPITOR) 40 MG tablet Take 1 tablet by mouth dailyActive eszopiclone (LUNESTA) 3 MG TABS Take 1 tablet by mouth nightly.Active apixaban (ELIQUIS) 5 MG TABS tablet Take 1 tablet by mouth 2 times dailyActive acetaminophen (TYLENOL) 500 MG tablet Take 1 tablet by mouth in the morning and at bedtimeActive allopurinol (ZYLOPRIM) 300 MG tablet Take 1 tablet by mouth dailyActive bumetanide (BUMEX) 1 MG tablet Take 1 tablet by mouth dailyActive levothyroxine (SYNTHROID) 150 MCG tablet Take 1 tablet by mouth DailyActive magnesium oxide (MAG-OX) 400 (240 Mg) MG tablet Take 1 tablet by mouth dailyActive potassium chloride (KLOR-CON M) 20 MEQ extended release tablet Take 1 tablet by mouth dailyActive carvedilol (COREG) 6.25 MG tablet Take 1 tablet by mouth 2 times daily (with meals)Active Active Problems ProblemNoted DateDiagnosed DateLumbar stenosis with neurogenic claudication 02/21/2024 Family History Medical HistoryRelationNameCommentsAlcohol AbuseFatherHeart DiseaseMother RelationNameStatusCommentsFatherDeceasedMotherDeceased Social History Tobacco UseTypesPacks/DayYears UsedDateSmoking Tobacco: FormerCigarettes Smokeless Tobacco: Never Tobacco Cessation:Counseling Given: Not Answered Alcohol UseStandard Drinks/WeekCommentsNot Currently0 (1 standard drink = 0.6 oz pure alcohol)daily couple a dayInterpersonal Safety Domain Source: IP Abuse ScreeningAnswerDate RecordedPhysical mfljwPcajbm20/17/2024Verbal abuseDenies 02/21/2024Emotional wkdjvZlblio56/17/2024Financial ievgdPtyysh62/17/2024Sexual mkoehPbtanc56/17/2024Sex and Gender InformationValueDate RecordedSex Assigned at BirthNot on fileLegal RngUfrg6204/16/2012 8:10 PM ESTGender IdentityNot on file Sexual OrientationNot on file Last Filed Vital Signs Vital SignReadingTime TakenCommentsBlood Tuwvzcza401/7302/27/2024 10:46 AM EST Asonf923302/27/2024 10:46 AM RFJZqgdnaecamn06.7 ??C (98 ??F)02/27/2024 10:46 AM ESTRespiratory Itqe996904/29/2023 10:46 AM ESTOxygen Fktsdkhpgf84%02/27/2024 10:46 AM ESTInhaled Oxygen Concentration--Hlvcjb39.3 kg (190 lb 3.2 oz)02/21/2024 7:45 AM BMFZrjmap447.6 cm (5' 6 )02/21/2024 7:45 AM ESTBody Mass Index30.7104/23/2023 7:45 AM EST Plan of Treatment Health MaintenanceDue DateLast JvyyHzktdpxzYvrnkd79/11/1951Depression Screen 4DTaP/Tdap/Td vaccine (1 - Tdap)1Shingles vaccine (1 of 2) 07/16/1991Pneumococcal 50+ years Vaccine (2 of 2 - PPSV23, PCV20, or PCV21) Respiratory Syncytial Virus (RSV) or age 60 yrs+ (1 - 1-dose 75+ series)2016Annual Wellness Visit (Medicare)02/21/2024Flu vaccine (#1)/, 12/24/2021, 12/22/2019, Additional history existsCOVID-19 Vaccine ( season)Hepatitis A vaccineAged OutNo longer eligible based on patient's age to complete this topic Hepatitis B vaccineAged OutNo longer eligible based on patient's age to complete this topicHib vaccineAged OutNo longer eligible based on patient's age to complete this topicMeningococcal (ACWY) vaccineAged OutNo longer eligible based on patient's age to complete this topicMeningococcal B vaccineAged OutNo longer eligible based on patient's age to complete this topicPolio vaccineAged OutNo longer eligible based on patient's age to complete this topic Insurance * Guarantor: Krista Mendes TypeRelation to PatientDate of BirthPhone Billing AddressPersonal/WgijleWfus70/11/1941 [address] [place] [address] * Guarantor: Krista Mendes TypeRelation to PatientDate of BirthPhone Billing AddressPersonal/EfemgeWxsg12/11/1941 [address] [place] [address] Advance Directives * Full Code (Latest Code Status on File) Date ActivatedDate UlzgllswncsDpwjxamr66/17/2024 7:35 AM02/27/2024 3:35 PM Care Teams Team MemberRelationshipSpecialtyStart DateEnd Date Feliciano Ambrosio DO PCP - [facility]07/22/17
--- OUTSIDE RECORDS SUMMARY | 2024-12-27 21:05 | XMS_ITS | Clinical Summary ---
Author Organization [facility] Address [address] [place] [address] Care Team Providers Care Mechanic And Welder Name Role Phone Unavailable Primary Care Provider Unavailabl e Allergies Active AllergyReactionsCriticalityNoted DateCommentsPenicillinsMental Status Hbkalt6004/07/2004 Medications MedicationSigDispense QuantityRefillsLast FilledStart DateEnd DateStatus SYNTHROID 150 MCG TABLET Take one(1) tablet daily.Active ALLOPURINOL 300 MG TABLET Take one(1) tablet daily.Active HYTRIN 2 MG CAPSULE Take one(1) capsule daily.Active BUMEX 2 MG TABLET Take one(1) tablet daily.Active CELEBREX 200 MG CAPSULE Take one(1) capsule daily.Active LEXAPRO 5 MG TABLET take one half qmstu490Active VICODIN 5/500 TABLET as mgldgs210Active K-DUR 20 MEQ TABLET SA Take one(1) tablet daily.Active Active Problems No known active problems Family History Medical HistoryRelationCommentsAlzheimer's DiseaseMotherCoronary Artery Disease MotherHad CABG when she was olderThyroidSisterHypothyroidismobesitySister RelationStatusCommentsMotherSister Social History Tobacco UseTypesPacks/DayYears UsedDateSmoking Tobacco: XncikvKvjkcxbriw014 04/07/1964 - 04/07/1994 Comments:Started in High janey ool Alcohol UseStandard Drinks/WeekCommentsYes0 (1 standard drink = 0.6 oz pure alcohol)A few beers every daySex and Gender InformationValueDate RecordedSex Assigned at BirthNot on fileLegal YojLjrq88/02/2012 10:06 AM ESTGender Identity Not on fileSexual OrientationNot on fileOccupationIndustryJob Start DateJob End DateNot on fileNot on fileNot on fileNot on file Last Filed Vital Signs Vital SignReadingTime TakenCommentsBlood Vkrfqsca069/85006/28/2024 10:50 AM EDT Cwgyw6408 10:50 AM HIRWbpbpaszdgi69.9 ??C (98.5 ??F)06/28/2024 10:50 AM EDTRespiratory Eboy176306/28/2024 10:50 AM EDTOxygen Lusutjjcmb74%06/28/2024 10:50 AM EDTInhaled Oxygen Concentration--Rqreqo132.2 kg (276 lb)04/07/2004 3:44 PM ESTHeight--Body Mass Index-- Plan of Treatment Health MaintenanceDue DateLast DoneCommentsAnxiety Myweusgyx70/11/1960Depression Fxdaxigpl45/11/1960DTaP,Tdap,Td Vaccine (1 - Tdap)1Diabetes Screening 1986Pneumococcal Vaccine: 50+ (1 of 1 - PCV)07/16/1991Shingrix Vaccine (1 of 2)07/16/1991RSV Vaccine (1 - 1-dose 75+ series)2016Advance Directive Hfoxsikxex06/01/2025ovid-19 Vaccine (1 - 2024- season)2024Influenza Vaccine (#1)2024 Insurance
--- OUTSIDE RECORDS SUMMARY | 2024-12-27 21:05 | XMS_ITS | Clinical Summary ---
Author Organization [employer] s tem Address [id number] [address] [place] [address] Care Team Providers Care Senior Analyst Programmer Name Role Phone TjcatieEdmondan Louis HARGROVE Primary Care Provider [phone] Allergies Active AllergyReactionsCriticalityNoted JdqnDweaxvlmTmeseytf58/20/2021Fentanyl 09/02/20172839Nxmabqfikcvl06/29/3674Nrelotyekpu67/01/2005 Other reaction(s): Mental Status Change Medications MedicationSigDispense QuantityRefillsLast FilledStart DateEnd DateStatus acetaminophen (TYLENOL) 500 mg tablet Take 1 tablet (500 mg total) by mouth.Active apixaban (ELIQUIS) 5 mg tablet Take by mouth.Active bumetanide (BUMEX) 2 mg tablet Take by mouth.04/07/2004Active carvedilol (COREG) 6.25 mg tablet Take 1 tablet (6.25 mg total) by mouth in the morning and 1 tablet (6.25 mg total) before bedtime.Active digoxin (LANOXIN) 125 mcg tablet Take 1 tablet (125 mcg total) by mouth in the morning.Active eszopiclone (LUNESTA) 3 mg tablet Take 1 tablet (3 mg total) by mouth.Active levothyroxine (SYNTHROID, LEVOTHROID) 150 MCG tablet TAKE 1 TABLET BY MOUTH ONCE EVERY MORNING ON AN EMPTY FTYDZHI338Active magnesium oxide (MAG-OX) 400 mg tablet Take 1 tablet (400 mg total) by mouth in the morning.Active KLOR-CON M20 20 mEq CR tablet Take 1 tablet (20 mEq total) by mouth in the morning.Active ENTRESTO 24-26 mg tablet Take 1 tablet by mouth in the morning and 1 tablet before bedtime. Active traZODone (DESYREL) 50 mg tablet Take by mouth nightly as needed.Active spironolactone (ALDACTONE) 25 mg tablet Take 1 tablet (25 mg total) by mouth in the morning.Active Active Problems ProblemNoted DateDiagnosed DateBenign prostatic hyperplasia (BPH) with urinary urge ohjgaxzbpqrr54/07/2019 Overview (05/18/2022): urolift 12/21 ([place]) Was using tamsulosin and finasteride 07/11/18: Having urge incontinence. PVR is minimal. No longer using tamsulosin finasteride. I explained to him that the urge incontinence is multifactorial including from the Bumex. We are going to addoxybutynin extended release 10 mg and check a PVR in 3-4 weeks. The risk of retention and about 3% of men was discussed. 08/15/18: Improved with oxybutynin xl 10 mg. 08/21/19: Continued urge incontinence. Minimal pvr. Offered higher dose or addition of myrbetriq. Samples myrbetriq 50 mg given 09/18/19: Improved urge incontinence with use of combination Myrbetriq 50 mg and oxybutynin extendedrelease 10 mg. 09/23/20: Improved urge incontinence with use of combination Myrbetriq 50 mg and oxybutynin extendedrelease 10 mg. 10/20/21: Some progressive symtpoms mostly upon waking. Plan to have him take the medication combination at night. If no improvement can increase the oxybutynin dose to 15 mg. 03/17/22: UTI on 01/05/2022. PVR at that time was 74 cc. Continues to have frequency and urge incontinence. He is on a diuretic. He stopped Myrbetriq in oxybutynin and does not think he feels any different off the medication but is unsure. He plans to keep a void log and restart the medication to see if there is improvement. Did briefly discuss Botox but he is not interested. Will check renal/bladder US to make sure no underlying reason for recent UTI. Ua today is clear 05/18/22: Renal u/s negative. Discussed botox, interstim and ptns as alternatives for urge incontience. He was not interested Social History Tobacco UseTypesPacks/DayYears UsedDateSmoking Tobacco: NeverSmokeless Tobacco: Never Tobacco Cessation:Counseling Given: Not Answered Alcohol UseStandard Drinks/WeekCommentsYes0 (1 standard drink = 0.6 oz pure alcohol)ChildcareAnswerDate GxyopacgGcdcluxbvTxowstd82/04/2019EmploymentAnswer Date ZtqwcqxaQpgrzyqkxyZkvknst67/04/2019Hunger ScreeningAnswerDate Recorded Within the past 12 months we worried whether our food would run out before we got money to buy more.Never True05/18/2022Within the past 12 months the food we bought just didn't last and we didn't have money to get more.Never True 05/18/2022urpose - LifeAnswerDate RecordedPurpose and direction in lifeUnknown 03/31/2020ex and Gender InformationValueDate RecordedSex Assigned at BirthNot on fileLegal HmvLppu7710/08/2014 8:36 PM EDTGender IdentityNot on fileSexual OrientationNot on file Last Filed Vital Signs Vital SignReadingTime TakenCommentsBlood Njazufhz906/7905/18/2022 11:26 AM EDT Enfve353305/18/2022 11:26 AM EDTTemperature--Respiratory Ikit206305/18/2022 11:26 AM EDTOxygen Saturation--Inhaled Oxygen Concentration--Gnprdl99.6 kg (180 lb) 05/18/2022 11:26 AM AAKVbfmka802.6 cm (5' 6 )05/18/2022 11:26 AM EDTBody Mass Index29.05005/18/2022 11:26 AM EDT Plan of Treatment Health MaintenanceDue DateLast DoneCommentsDepression Hlnujqace33/11/1954Tobacco Idbhjoqlg52/11/1954DTaP,Tdap and Td Vaccines (1 - Tdap)1960Zoster (Shingles) Vaccine (1 of 2)07/16/1991Fall Risk Xkghjhdqd48/11/2007COVID-19 Vaccine (6 - season), 02/18/2021, 05/28/2020, Additional history existsInfluenza Jpqttsu13, 12/22/2019, 12/06/2019, Additional history exists Medical Devices Not on file Insurance Care Teams Team MemberRelationshipSpecialtyStart DateEnd Date Feliciano Ambrosio DO PCP - GeneralFamily Medicine06/05/18
--- OUTSIDE RECORDS SUMMARY | 2024-12-27 21:05 | XMS_ITS | Clinical Summary ---
Author Organization [facility] Address [address] [place] [address] Care Team Providers Care High Heel Builder Name Role Phone Unavailable Primary Care Provider Unavailabl e Social History Tobacco UseTypesPacks/DayYears UsedDateSmoking Tobacco: Never AssessedSex and Gender InformationValueDate RecordedSex Assigned at BirthNot on fileLegal Sex Male05/19/2022 6:54 PM EDTGender IdentityNot on fileSexual OrientationNot on file Plan of Treatment Not on file Insurance
--- NOTE | 2024-12-27 21:06 | CT_ITS ---
The [address] [address] Patient Name: TAVO WALLIS MRN: [id number] date: 1940 Sex: M Assigned Patient Location: ER Current Patient Location: ER Accession/Order Number: [id number] Exam Date: 12/27/2024 21:25 Report Date: 12/27/2024 21:50 At the request of: VIRGINIA WATSON Procedure: CT head/brain wo con CT BRAIN WITHOUT CONTRAST: CLINICAL HISTORY: AMS COMPARISON: None TECHNIQUE: Contiguous axial unenhanced images were obtained through the brain. This CT exam was performed using one or more following dose reduction techniques: Automated exposure control, adjustment of the mA and/or kV according to patient size, or use of iterative reconstruction technique. FINDINGS: There is no evidence of midline shift, intra or extra-axial fluid collection, hemorrhage or CT evidence of acute large vascular distribution stroke. Central involutional changes and chronic small vessel ischemic disease. Intracranial vascular calcification... Cataract surgery. Mild paranasal sinus mucosal thickening. The surrounding soft tissues are normal. CT/CT head/brain wo con IMPRESSION: NO ACUTE INTRACRANIAL ABNORMALITY. CHRONIC SMALL VESSEL ISCHEMIC DISEASE AND CENTRAL INVOLUTIONAL CHANGE. Impression dictated by: Palmer Dejesus M.D. 12/27/2024 9:50 PM Dictation Location: [place] [address] Electronically authenticated by: [id number] Y Date: 12/27/2024 21:50
--- NOTE | 2024-12-27 21:06 | ED.GENADUL1 ---
Documented by User: Cristy Prince 12/27/24 22:04 HPI HPI - General Adult General Chief complaint: Urogenital-Male Stated complaint: Altered Mental Status Time Seen by Provider: 12/27/24 21:05 Source: patient Mode of arrival: ambulance Limitations: no limitations History of Present Illness HPI narrative: 84 year old male presents to the ED via EMS from the [facility]. Pt was sent to the ED with concerns for confusion, possible UTI. Per EMS pt stated he was at home today to a staff member of the [facility] when he typically answers that he is at the [facility]. Pt is alert and oriented here in the ED today. He denies pain. He has no complaints. Denies ARTHUR, dizziness, cough, N/V/D, dysuria. Denies CP, SOB, abd pain. Related Data Home Medications ?Medication ?Instructions ?Recorded ?Confirmed acetaminophen 500 mg oral powder 1,000 mg PO BID PRN pain 01/06/23 12/27/24 packet (Tylenol Extra Strength) allopurinol 300 mg tablet 300 mg PO DAILY 01/06/23 12/27/24 apixaban 5 mg tablet (Eliquis) 5 mg PO BID 01/06/23 04/13/24 atorvastatin 40 mg tablet 40 mg PO DAILY 01/06/23 12/27/24 bumetanide 1 mg tablet 1 mg PO DAILY 01/06/23 12/27/24 eszopiclone 3 mg tablet 3 mg PO BEDTIME 01/06/23 12/27/24 magnesium oxide 400 mg PO DAILY 01/06/23 12/27/24 potassium chloride 20 mEq 20 meq PO DAILY 01/06/23 04/13/24 tablet,extended release(part/cryst) trazodone 50 mg tablet 50 mg PO DAILY PRN insomnia 01/06/23 04/13/24 carvedilol 6.25 mg tablet 6.25 mg PO BID 04/13/24 04/13/24 levothyroxine 150 mcg tablet 150 mcg PO .qd 04/13/24 12/27/24 magnesium oxide 400 mg (241.3 mg 400 mg PO .qd 04/13/24 04/13/24 magnesium) tablet Allergies Allergy/AdvReac Type Severity Reaction Status Date / Time fentanyl (From Duragesic) Allergy Unknown Agitated Verified 10/24/23 08:32 indomethacin (From Indocin) Allergy Unknown Agitated Verified 10/24/23 08:32 Penicillins Allergy Unknown Rash Verified 10/24/23 08:32 zolpidem (From Ambien) Allergy Agitated Verified 10/24/23 08:32 Opioid HPI Opioid Management Most Recent Opioid Data: Last Pain Scale 7 04/15/24, 02:41 Last ORT Total Score 11 04/13/24, 13:19 Last ORT Risk Category High Risk 04/13/24, 13:19 Review of Systems ROS Constitutional Denies: fever or chills Eyes Denies: change in vision Cardiovascular Denies: chest pain Respiratory Denies: shortness of breath or cough Gastrointestinal Denies: abdominal pain, nausea, vomiting or diarrhea Genitourinary Denies: painful urination Musculoskeletal Denies: back pain or neck pain Neurological Reports: confusion; Denies: headache, dizziness or slurred speech PFSH [facility] Medical History (Updated 12/27/24 @ 22:40 by Liliana Miller MD) Fluid collection at surgical site ?T88.8XXA - Other specified complications of surgical and medical care, 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, initial encounter (ICD-10) Acute on chronic renal failure ?N17.9 - Acute kidney failure, unspecified (ICD-10) ?N18.9 - Chronic kidney disease, unspecified (ICD-10) Acute on chronic diastolic CHF (congestive heart failure) ?I50.33 - Acute on chronic diastolic (congestive) heart failure (ICD-10) 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 - Diverticulum of esophagus, acquired (ICD-10) Encounter for screening colonoscopy ?Z12.11 - Encounter for screening for malignant neoplasm of colon (ICD-10) Sleep apnea ?G47.30 - Sleep apnea, unspecified (ICD-10) Gastric ulcer ?K25.9 - Gastric ulcer, unspecified as acute or chronic, without hemorrhage or perforation (ICD-10) DJD (degenerative joint disease) ?M19.90 - Unspecified osteoarthritis, unspecified site (ICD-10) Dehydration ?E86.0 - Dehydration (ICD-10) Altered mental state ?R41.82 - Altered mental status, unspecified (ICD-10) Falls ?R29.6 - Repeated falls (ICD-10) Bladder retention ?R33.9 - Retention of urine, unspecified (ICD-10) Constipation ?K59.00 - Constipation, unspecified (ICD-10) Pleural effusion ?J90 - Pleural effusion, 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 (ICD-10) Bakers cyst ?M71.20 - Synovial cyst of popliteal space [Wayne], unspecified knee (ICD-10) Cardiomyopathy ?I42.9 - Cardiomyopathy, unspecified (ICD-10) Cellulitis ?L03.90 - Cellulitis, unspecified (ICD-10) Gout ?M10.9 - Gout, unspecified (ICD-10) Meningioma, spinal ?D32.1 - Benign neoplasm of spinal meninges (ICD-10) Tinnitus ?H93.19 - Tinnitus, unspecified ear (ICD-10) BPH (benign prostatic hyperplasia) ?N40.0 - Benign prostatic hyperplasia without lower urinary tract symptoms (ICD-10) Insomnia ?G47.00 - Insomnia, unspecified (ICD-10) PVD (peripheral vascular disease) ?I73.9 - Peripheral vascular disease, unspecified (ICD-10) CHF (congestive heart failure) ?I50.9 - Heart failure, unspecified (ICD-10) Cataracts, bilateral ?H26.9 - Unspecified cataract (ICD-10) Low back pain ?M54.50 - Low back pain, unspecified (ICD-10) Hypothyroid ?E03.9 - Hypothyroidism, unspecified (ICD-10) Hypercholesterolemia ?E78.00 - Pure hypercholesterolemia, unspecified (ICD-10) Afib ?I48.91 - Unspecified atrial fibrillation (ICD-10) Surgical History (Updated 04/13/24 @ 10:32 by Yoli High RN) H/O lithotripsy ?Z98.890 - Other specified postprocedural states (ICD-10) H/O laminectomy ?Z98.890 - Other specified postprocedural states (ICD-10) H/O sinus surgery ?Z98.890 - Other specified postprocedural states (ICD-10) History of back surgery ?Z98.890 - Other specified postprocedural states (ICD-10) History of esophagogastroduodenoscopy (EGD) ?Z98.890 - Other specified postprocedural states (ICD-10) History of total knee arthroplasty ?Z96.659 - Presence of unspecified artificial knee joint (ICD-10) History of hip replacement ?Z96.649 - Presence of unspecified artificial hip joint (ICD-10) Previous back surgery ?Z98.890 - Other specified postprocedural states (ICD-10) History of shoulder surgery ?Z98.890 - Other specified postprocedural states (ICD-10) Family History (Updated 04/13/24 @ 10:34 by Yoli High RN) Other Alzheimers disease Cirrhosis Family history of cancer Family history of diabetes mellitus Family history of hypertension Family history of myocardial infarction Heart disease Social History (Updated 04/13/24 @ 10:36 by Yoli High RN) Within the past year, how often did you have a drink containing alcohol: 4 or more times a week Smoking status: Former smoker Second hand tobacco smoke exposure: Yes Non-prescribed substance use: denies use Previous occupational history: Retired- [employer] Highest level of school completed/degree received: high school graduate Little interest or pleasure in doing things: not at all Feeling down, depressed, or hopeless: not at all Exam Constitutional Vital Signs, click to edit/add: Last Vital Signs Temp 98.4 F 12/27/24 21:01 Pulse 78 12/27/24 22:10 Resp 16 12/27/24 22:10 BP 127/64 12/27/24 21:02 Pulse Ox 99 12/27/24 22:10 O2 Del Method Room Air 12/27/24 21:01 Common normals: no apparent distress and oriented x3 General appearance: cooperative HENMT Common normals: moist oral mucous membranes and oropharynx normal Eye Common normals: PERRL, EOMs intact bilaterally, conjunctivae normal and no scleral icterus Neck & C-Spine Common normals: supple Chest Chest: symmetrical chest wall rise Respiratory Common normals: normal respiratory effort and clear to auscultation bilaterally Effort & inspection: able to speak in complete sentences and symmetric chest movement Cardio Common normals: regular rate and regular rhythm Extremity Common normals: normal capillary refill Other: Generalized weakness. Wounds/abrasions noted to BLE. Neuro Common normals: oriented x3 and CN's II-XII intact bilaterally Sensorium/orientation: awake and alert Speech: speech normal Other: Pt able to move extremities, but generalized weakness noted. Pt unable to lift extremities. Hand grasps and dorsi-plantar flexion strong and equal. Course Vital Signs Vital signs: Vital Signs Temperature 98.4 F 12/27/24 21:01 Pulse Rate 78 12/27/24 21:01 Respiratory Rate 18 12/27/24 21:01 Blood Pressure 127/64 12/27/24 21:01 Pulse Oximetry 98 12/27/24 21:01 Oxygen Delivery Method Room Air 12/27/24 21:01 Temperature 98.4 F 12/27/24 21:01 Pulse Rate 78 12/27/24 22:10 Respiratory Rate 16 12/27/24 22:10 Blood Pressure 127/64 12/27/24 21:02 Pulse Oximetry 99 12/27/24 22:10 Oxygen Delivery Method Room Air 12/27/24 21:01 Medical Decision Making MDM Narrative Medical decision making narrative: Testing was pending. Care was resumed to Dr. Miller. See her dictation for further evaluation and treatment. Medical Records Medical records reviewed: Yes I reviewed the patient's medical records Lab Data Lab results reviewed: Yes I reviewed the patient's lab results Labs: Lab Results 12/27/24 12/27/24 Range/Units 21:17 21:51 WBC 8.1 (4.0-11.0) 10^3/uL RBC 3.01 L (4.70-6.10) 10^6/uL Hgb 8.7 L (14.0-18.0) g/dL Hct 27.1 L (42.0-54.0) % MCV 90.0 (80.0-94.0) fL MCH 28.9 (25.9-34.0) pg MCHC 32.1 (29.9-35.2) g/dL RDW 16.9 H (11.0-15.0) % Plt Count 244 (150-450) 10^3/uL MPV 10.6 (9.5-13.5) fL Neut % (Auto) 72.8 (43.0-75.0) % Lymph % (Auto) 14.4 L (20.5-60.0) % Winston % (Auto) 8.6 (1.7-12.0) % Eos % (Auto) 2.8 (0.9-7.0) % Baso % (Auto) 0.9 (0.2-2.0) % Neut # (Auto) 5.9 (1.4-6.5) 10^3/uL Lymph # (Auto) 1.2 (1.2-3.8) 10^3/uL Winston # (Auto) 0.7 (0.3-0.8) 10^3/uL Eos # (Auto) 0.2 (0.0-0.7) 10^3/uL Baso # (Auto) 0.1 (0.0-0.1) 10^3/uL Abs Immat Gran (auto) 0.04 H (0.00-0.03) 10^3/uL Imm/Tot Granulo (auto) 0.5 (0.0-0.5) % Sodium 131 L (136-145) mmol/L Potassium 5.1 (3.5-5.1) mmol/L Chloride 97 L (98-107) mmol/L Carbon Dioxide 24.8 (21.0-32.0) mmol/L Anion Gap 14.3 BUN 24.0 H (7.0-18.0) mg/dL Creatinine 1.33 H (0.70-1.30) mg/dL Est GFR ( Amer) >60 (>=60 mL/min/1.73m^2) Est GFR (Non-Af Amer) 51 L (>=60 mL/min/1.73m^2) BUN/Creatinine Ratio 18.0 Glucose 92 (74-106) mg/dL Calcium 8.9 (8.5-10.1) mg/dL Total Bilirubin 0.5 (0.2-1.0) mg/dL AST 42 H (15-37) U/L ALT 30 (16-63) U/L Alkaline Phosphatase 143 H (46-116) U/L Troponin I High Sens 131.3 H* (4.0-76.1) pg/mL Total Protein 6.9 (6.4-8.2) g/dL Albumin 2.7 L (3.4-5.0) g/dL Globulin 4.2 g/dL Albumin/Globulin Ratio 0.6 Urine Color Lt. yellow (YELLOW) Urine Clarity Sl cloudy (CLEAR) Urine pH 5.5 (5.0-9.0) Ur Specific Buena <=1.005 A (1.005-1.025) Urine Protein Negative (NEG/TRACE) mg/dL Urine Glucose (UA) Negative (NEGATIVE) mg/dL Urine Ketones Negative (NEGATIVE) mg/dL Urine Occult Blood Negative (NEGATIVE) Urine Nitrite Negative (NEGATIVE) Urine Bilirubin Negative (NEGATIVE) Urine Urobilinogen 0.2 (0.2-1.0) EU/dL Ur Leukocyte Esterase Small A (NEGATIVE) Urine RBC 0-2 (0-2) #/HPF Urine WBC 10-20 A (NONE SEEN) #/HPF Ur Squamous Epith Cells None seen (NONE/RARE) #/LPF Urine Crystals None seen (None Seen) #/HPF Urine Bacteria Small A (NONE SEEN) #/HPF Urine Casts None seen (NONE SEEN) #/LPF Urine Mucus None seen (NONE SEEN) Urine Yeast Seen A (NONE SEEN) Ur Culture Indicated? Yes-[facility] Imaging Data CT scan - head: Radiologist's impression: ITS Impressions Head CT 12/27/24 21:06 IMPRESSION: NO ACUTE INTRACRANIAL ABNORMALITY. CHRONIC SMALL VESSEL ISCHEMIC DISEASE AND CENTRAL INVOLUTIONAL CHANGE. Impression dictated by: Palmer Dejesus M.D. 12/27/2024 9:50 PM Dictation [facility] Electronically authenticated by: [id number] Y Date: 12/27/2024 21:50 ECG Data Attestation: ?I have reviewed the pertinent ECG results. (EKG was reviewed by the ED attending. ) Interpretation: Measurements Intervals Deep Gap Rate: 80 P: -13490 NC: -13878 QRS: 170 QRSD: 80 T: 10 QT: 358 QTc: 394 Interpretive Statements 15007 Atrial fibrillation with aberrant conduction, or ventricular premature complexes 3133 Anterior myocardial infarction, probably old 5120 Possible right ventricular hypertrophy 0102 ARTIFACT PRESENT 9150 abnormal ECG No previous ECG available for comparison Discharge Plan Discharge Chief Complaint: Urogenital-Male Clinical Impression: Altered mental status, Decubitus ulcer of right heel, stage 2 Patient Disposition: Home, Self-Care Time of Disposition Decision: 22:40 Condition: Good Prescriptions / Home Meds: No Action bumetanide 1 mg tablet 1 mg PO DAILY Eliquis 5 mg tablet 5 mg PO BID eszopiclone 3 mg tablet 3 mg PO BEDTIME magnesium oxide 400 mg magnesium tablet 400 mg PO DAILY potassium chloride 20 mEq tablet,ER particles/crystals 20 meq PO DAILY Tylenol Extra Strength 500 mg powder in packet 1,000 mg PO BID PRN (Reason: pain) allopurinol 300 mg tablet 300 mg PO DAILY atorvastatin 40 mg tablet 40 mg PO DAILY trazodone 50 mg tablet 50 mg PO DAILY PRN (Reason: insomnia) carvedilol 6.25 mg tablet 6.25 mg PO BID levothyroxine 150 mcg tablet 150 mcg PO .qd magnesium oxide 400 mg (241.3 mg magnesium) tablet 400 mg PO .qd Print Language: Sami Instructions: Chronic Wounds (ED) Referrals: Feliciano Ambrosio DO [Primary Care Provider] - 1 week Documented by User: Liliana Miller MD 12/27/24 22:40 HPI HPI - General Adult General Chief complaint: Urogenital-Male Stated complaint: Altered Mental Status Time Seen by Provider: 12/27/24 21:05 Related Data Home Medications ?Medication ?Instructions ?Recorded ?Confirmed acetaminophen 500 mg oral powder 1,000 mg PO BID PRN pain 01/06/23 12/27/24 packet (Tylenol Extra Strength) allopurinol 300 mg tablet 300 mg PO DAILY 01/06/23 12/27/24 apixaban 5 mg tablet (Eliquis) 5 mg PO BID 01/06/23 04/13/24 atorvastatin 40 mg tablet 40 mg PO DAILY 01/06/23 12/27/24 bumetanide 1 mg tablet 1 mg PO DAILY 01/06/23 12/27/24 eszopiclone 3 mg tablet 3 mg PO BEDTIME 01/06/23 12/27/24 magnesium oxide 400 mg PO DAILY 01/06/23 12/27/24 potassium chloride 20 mEq 20 meq PO DAILY 01/06/23 04/13/24 tablet,extended release(part/cryst) trazodone 50 mg tablet 50 mg PO DAILY PRN insomnia 01/06/23 04/13/24 carvedilol 6.25 mg tablet 6.25 mg PO BID 04/13/24 04/13/24 levothyroxine 150 mcg tablet 150 mcg PO .qd 04/13/24 12/27/24 magnesium oxide 400 mg (241.3 mg 400 mg PO .qd 04/13/24 04/13/24 magnesium) tablet Allergies Allergy/AdvReac Type Severity Reaction Status Date / Time fentanyl (From Duragesic) Allergy Unknown Agitated Verified 10/24/23 08:32 indomethacin (From Indocin) Allergy Unknown Agitated Verified 10/24/23 08:32 Penicillins Allergy Unknown Rash Verified 10/24/23 08:32 zolpidem (From Ambien) Allergy Agitated Verified 10/24/23 08:32 Opioid HPI Opioid Management Most Recent Opioid Data: Last Pain Scale 7 04/15/24, 02:41 Last ORT Total Score 11 04/13/24, 13:19 Last ORT Risk Category High Risk 04/13/24, 13:19 PFSH PFS Medical History (Updated 12/27/24 @ 22:40 by Liliana Miller MD) Fluid collection at surgical site ?T88.8XXA - Other specified complications of surgical and medical care, 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, initial encounter (ICD-10) Acute on chronic renal failure ?N17.9 - Acute kidney failure, unspecified (ICD-10) ?N18.9 - Chronic kidney disease, unspecified (ICD-10) Acute on chronic diastolic CHF (congestive heart failure) ?I50.33 - Acute on chronic diastolic (congestive) heart failure (ICD-10) 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 - Diverticulum of esophagus, acquired (ICD-10) Encounter for screening colonoscopy ?Z12.11 - Encounter for screening for malignant neoplasm of colon (ICD-10) Sleep apnea ?G47.30 - Sleep apnea, unspecified (ICD-10) Gastric ulcer ?K25.9 - Gastric ulcer, unspecified as acute or chronic, without hemorrhage or perforation (ICD-10) DJD (degenerative joint disease) ?M19.90 - Unspecified osteoarthritis, unspecified site (ICD-10) Dehydration ?E86.0 - Dehydration (ICD-10) Altered mental state ?R41.82 - Altered mental status, unspecified (ICD-10) Falls ?R29.6 - Repeated falls (ICD-10) Bladder retention ?R33.9 - Retention of urine, unspecified (ICD-10) Constipation ?K59.00 - Constipation, unspecified (ICD-10) Pleural effusion ?J90 - Pleural effusion, 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 (ICD-10) Bakers cyst ?M71.20 - Synovial cyst of popliteal space [Wayne], unspecified knee (ICD-10) Cardiomyopathy ?I42.9 - Cardiomyopathy, unspecified (ICD-10) Cellulitis ?L03.90 - Cellulitis, unspecified (ICD-10) Gout ?M10.9 - Gout, unspecified (ICD-10) Meningioma, spinal ?D32.1 - Benign neoplasm of spinal meninges (ICD-10) Tinnitus ?H93.19 - Tinnitus, unspecified ear (ICD-10) BPH (benign prostatic hyperplasia) ?N40.0 - Benign prostatic hyperplasia without lower urinary tract symptoms (ICD-10) Insomnia ?G47.00 - Insomnia, unspecified (ICD-10) PVD (peripheral vascular disease) ?I73.9 - Peripheral vascular disease, unspecified (ICD-10) CHF (congestive heart failure) ?I50.9 - Heart failure, unspecified (ICD-10) Cataracts, bilateral ?H26.9 - Unspecified cataract (ICD-10) Low back pain ?M54.50 - Low back pain, unspecified (ICD-10) Hypothyroid ?E03.9 - Hypothyroidism, unspecified (ICD-10) Hypercholesterolemia ?E78.00 - Pure hypercholesterolemia, unspecified (ICD-10) Afib ?I48.91 - Unspecified atrial fibrillation (ICD-10) Surgical History (Updated 04/13/24 @ 10:32 by Yoli High RN) H/O lithotripsy ?Z98.890 - Other specified postprocedural states (ICD-10) H/O laminectomy ?Z98.890 - Other specified postprocedural states (ICD-10) H/O sinus surgery ?Z98.890 - Other specified postprocedural states (ICD-10) History of back surgery ?Z98.890 - Other specified postprocedural states (ICD-10) History of esophagogastroduodenoscopy (EGD) ?Z98.890 - Other specified postprocedural states (ICD-10) History of total knee arthroplasty ?Z96.659 - Presence of unspecified artificial knee joint (ICD-10) History of hip replacement ?Z96.649 - Presence of unspecified artificial hip joint (ICD-10) Previous back surgery ?Z98.890 - Other specified postprocedural states (ICD-10) History of shoulder surgery ?Z98.890 - Other specified postprocedural states (ICD-10) Family History (Updated 04/13/24 @ 10:34 by Yoli High, RN) Other Alzheimers disease Cirrhosis Family history of cancer Family history of diabetes mellitus Family history of hypertension Family history of myocardial infarction Heart disease Social History (Updated 04/13/24 @ 10:36 by Yoli High RN) Within the past year, how often did you have a drink containing alcohol: 4 or more times a week Smoking status: Former smoker Second hand tobacco smoke exposure: Yes Non-prescribed substance use: denies use Previous occupational history: Retired- [employer] Highest level of school completed/degree received: high school graduate Little interest or pleasure in doing things: not at all Feeling down, depressed, or hopeless: not at all Exam Constitutional Vital Signs, click to edit/add: Last Vital Signs Temp 98.4 F 12/27/24 21:01 Pulse 78 12/27/24 22:10 Resp 16 12/27/24 22:10 BP 127/64 12/27/24 21:02 Pulse Ox 99 12/27/24 22:10 O2 Del Method Room Air 12/27/24 21:01 Course Vital Signs Vital signs: Vital Signs Temperature 98.4 F 12/27/24 21:01 Pulse Rate 78 12/27/24 21:01 Respiratory Rate 18 12/27/24 21:01 Blood Pressure 127/64 12/27/24 21:01 Pulse Oximetry 98 12/27/24 21:01 Oxygen Delivery Method Room Air 12/27/24 21:01 Temperature 98.4 F 12/27/24 21:01 Pulse Rate 78 12/27/24 22:10 Respiratory Rate 16 12/27/24 22:10 Blood Pressure 127/64 12/27/24 21:02 Pulse Oximetry 99 12/27/24 22:10 Oxygen Delivery Method Room Air 12/27/24 21:01 Medical Decision Making MDM Narrative Medical decision making narrative: Testing was pending. Care was resumed to Dr. Miller. See her dictation for further evaluation and treatment. 84-year-old male was seen and evaluated in conjunction with the nurse practitioner. He was sent to the emergency department for evaluation of altered mental status. According to the report he has episodes of confusion. In the emergency department he is awake alert and oriented. He is sleeping and easily arousable. He is oriented to person place and does not wish to be here. His only complaint is pain in the right heel. He does have a stage II pressure ulcer on the posterior aspect of the right heel. Labs are reviewed. He has a normal white count and hemoglobin is at baseline. CT scan of the brain is negative for acute findings. X-ray shows cardiomegaly with some peripheral vascular congestion. He has chronically elevated troponins and his troponin today is consistent with prior troponins at 131. He is not having any chest pain. I did review his EKG which is a pattern of atrial fibrillation with frequent PVCs at 80 bpm. Electrolytes are normal and consistent with prior findings. Urine shows 10-20 white blood cells per high-power field with small leukocyte esterase and negative nitrites. Culture is pending. This is consistent with his prior findings as well. The patient is not having any urinary symptoms. I think it is prudent to allow the urine to be cultured before institution of antibiotics as this may be chronic in nature. His right heel ulcer was treated with a colloid dressing. He the patient wishes to be return to the extended care facility where he currently resides at this time. I feel that is in his best interest. He is not confused here, his vital signs are stable, labs are unremarkable, CT scan of the brain does not show any acute findings. Lab Data Labs: Lab Results 12/27/24 12/27/24 Range/Units 21:17 21:51 WBC 8.1 (4.0-11.0) 10^3/uL RBC 3.01 L (4.70-6.10) 10^6/uL Hgb 8.7 L (14.0-18.0) g/dL Hct 27.1 L (42.0-54.0) % MCV 90.0 (80.0-94.0) fL MCH 28.9 (25.9-34.0) pg MCHC 32.1 (29.9-35.2) g/dL RDW 16.9 H (11.0-15.0) % Plt Count 244 (150-450) 10^3/uL MPV 10.6 (9.5-13.5) fL Neut % (Auto) 72.8 (43.0-75.0) % Lymph % (Auto) 14.4 L (20.5-60.0) % Winston % (Auto) 8.6 (1.7-12.0) % Eos % (Auto) 2.8 (0.9-7.0) % Baso % (Auto) 0.9 (0.2-2.0) % Neut # (Auto) 5.9 (1.4-6.5) 10^3/uL Lymph # (Auto) 1.2 (1.2-3.8) 10^3/uL Winston # (Auto) 0.7 (0.3-0.8) 10^3/uL Eos # (Auto) 0.2 (0.0-0.7) 10^3/uL Baso # (Auto) 0.1 (0.0-0.1) 10^3/uL Abs Immat Gran (auto) 0.04 H (0.00-0.03) 10^3/uL Imm/Tot Granulo (auto) 0.5 (0.0-0.5) % Sodium 131 L (136-145) mmol/L Potassium 5.1 (3.5-5.1) mmol/L Chloride 97 L (98-107) mmol/L Carbon Dioxide 24.8 (21.0-32.0) mmol/L Anion Gap 14.3 BUN 24.0 H (7.0-18.0) mg/dL Creatinine 1.33 H (0.70-1.30) mg/dL Est GFR ( Amer) >60 (>=60 mL/min/1.73m^2) Est GFR (Non-Af Amer) 51 L (>=60 mL/min/1.73m^2) BUN/Creatinine Ratio 18.0 Glucose 92 (74-106) mg/dL Calcium 8.9 (8.5-10.1) mg/dL Total Bilirubin 0.5 (0.2-1.0) mg/dL AST 42 H (15-37) U/L ALT 30 (16-63) U/L Alkaline Phosphatase 143 H (46-116) U/L Troponin I High Sens 131.3 H* (4.0-76.1) pg/mL Total Protein 6.9 (6.4-8.2) g/dL Albumin 2.7 L (3.4-5.0) g/dL Globulin 4.2 g/dL Albumin/Globulin Ratio 0.6 Urine Color Lt. yellow (YELLOW) Urine Clarity Sl cloudy (CLEAR) Urine pH 5.5 (5.0-9.0) Ur Specific Buena <=1.005 A (1.005-1.025) Urine Protein Negative (NEG/TRACE) mg/dL Urine Glucose (UA) Negative (NEGATIVE) mg/dL Urine Ketones Negative (NEGATIVE) mg/dL Urine Occult Blood Negative (NEGATIVE) Urine Nitrite Negative (NEGATIVE) Urine Bilirubin Negative (NEGATIVE) Urine Urobilinogen 0.2 (0.2-1.0) EU/dL Ur Leukocyte Esterase Small A (NEGATIVE) Urine RBC 0-2 (0-2) #/HPF Urine WBC 10-20 A (NONE SEEN) #/HPF Ur Squamous Epith Cells None seen (NONE/RARE) #/LPF Urine Crystals None seen (None Seen) #/HPF Urine Bacteria Small A (NONE SEEN) #/HPF Urine Casts None seen (NONE SEEN) #/LPF Urine Mucus None seen (NONE SEEN) Urine Yeast Seen A (NONE SEEN) Ur Culture Indicated? Yes-[facility] Imaging Data CT scan - head: Radiologist's impression: ITS Impressions Head CT 12/27/24 21:06 IMPRESSION: NO ACUTE INTRACRANIAL ABNORMALITY. CHRONIC SMALL VESSEL ISCHEMIC DISEASE AND CENTRAL INVOLUTIONAL CHANGE. Impression dictated by: Palmer Dejesus M.D. 12/27/2024 9:50 PM Dictation Location: [place] [address] Electronically authenticated by: [id number] Y Date: 12/27/2024 21:50 Discharge Plan Discharge Chief Complaint: Urogenital-Male Clinical Impression: Altered mental status, Decubitus ulcer of right heel, stage 2 Patient Disposition: Home, Self-Care Time of Disposition Decision: 22:40 Condition: Good Prescriptions / Home Meds: No Action bumetanide 1 mg tablet 1 mg PO DAILY Eliquis 5 mg tablet 5 mg PO BID eszopiclone 3 mg tablet 3 mg PO BEDTIME magnesium oxide 400 mg magnesium tablet 400 mg PO DAILY potassium chloride 20 mEq tablet,ER particles/crystals 20 meq PO DAILY Tylenol Extra Strength 500 mg powder in packet 1,000 mg PO BID PRN (Reason: pain) allopurinol 300 mg tablet 300 mg PO DAILY atorvastatin 40 mg tablet 40 mg PO DAILY trazodone 50 mg tablet 50 mg PO DAILY PRN (Reason: insomnia) carvedilol 6.25 mg tablet 6.25 mg PO BID levothyroxine 150 mcg tablet 150 mcg PO .qd magnesium oxide 400 mg (241.3 mg magnesium) tablet 400 mg PO .qd Print Language: Sami Instructions: Chronic Wounds (ED) Referrals: Feliciano Ambrosio DO [Primary Care Provider] - 1 week
[2024-12-27 21:35] LABS: Hematocrit 27.1 % (42.0-54.0); Hemoglobin 8.7 g/dL (14.0-18.0); Immature Granulocytes Abs Auto 0.04 10^3/uL (0.00-0.03); Immature Granulocytes Pct Auto 0.5 % (0.0-0.5); Lymphocytes Absolute Auto 1.2 10^3/uL (1.2-3.8); Mean Corpuscular HGB Conc 32.1 g/dL (29.9-35.2); Mean Corpuscular Hemoglobin 28.9 pg (25.9-34.0); Mean Corpuscular Volume 90.0 fL (80.0-94.0); Platelet Count 244 10^3/uL (150-450); Red Blood Count 3.01 10^6/uL (4.70-6.10); White Blood Count 8.1 10^3/uL (4.0-11.0)
[2024-12-27 21:49] LABS: Alanine Aminotransferase 30 U/L (16-63); Albumin Globulin Ratio 0.6; Albumin Level 2.7 g/dL (3.4-5.0); Alkaline Phosphatase 143 U/L (46-116); Anion Gap 14.3; Aspartate Amino Transferase 42 U/L (15-37); Blood Urea Nitrogen 24.0 mg/dL (7.0-18.0); Calcium 8.9 mg/dL (8.5-10.1); Carbon Dioxide 24.8 mmol/L (21.0-32.0); Chloride 97 mmol/L (98-107); Estimated GFR (African America >60 (>=60 mL/min/1.73m^2); Estimated GFR (Non-African Ame 51 (>=60 mL/min/1.73m^2); Globulin 4.2 g/dL; Glucose 92 mg/dL (74-106); Potassium 5.1 mmol/L (3.5-5.1); Sodium 131 mmol/L (136-145); Total Protein 6.9 g/dL (6.4-8.2)
[2024-12-27 22:00] LABS: Glucose Urine UA NEGATIVE (NEGATIVE)
[2024-12-27 22:07] LABS: Cast Seen? NONE SEEN #/LPF (NONE SEEN); Crystals Seen? None Seen #/HPF (None Seen)
[2024-12-27 22:09] LABS: Urine Culture Indicated YES-FRMC
== END 2024-12-27 23:35 | disposition home or self-care (01) ==
PROVIDERS: Nurse Practitioner Family; Emergency Provider Emergency Medicine; PCP Family Medicine
DX: R41.82 Altered mental status, unspecified (principal); Z87.891 Personal history of nicotine dependence; L89.612 Pressure ulcer of right heel, stage 2
CPT/HCPCS: 36415; 70450; 71045; 80053; 81001; 84484; 85025; 87086; 87106; 93005; 99285

== ENCOUNTER 2024-12-30 15:33 | Inpatient (IN) | payer MEDICARE, BC, SELFPAY ==
--- OUTSIDE RECORDS SUMMARY | 2023-08-02 06:45 | XMS_ITS ---
Author Organization [facility] Address [facility] [place] [address] Care Team Providers Care Leather Coverer Name Role Phone Feliciano Ambrosio Primary Care Provider Pawel Teague Unavailable [phone] Allergies Allergen (clinical drug ingredient) Drug/Non Drug Allergy documented on EMR Reaction Allergy Type Onset Date Status zolpidem Ambien Unknown Drug Allergy ActiveDuragesic-100UnknownDrug AllergyActivefentanylFentanylUnknownDrug Allergy ActiveindomethacinIndocinUnknownDrug AllergyActivepenicillaminePenicillamine anaphylaxisDrug AllergyActive REASON FOR VISIT c Medications Medication SIG (Take, Route, Frequency, Duration) [...] Encounter Location Date Provider Diagnosis [facility] [address] [place] [address] 08/02/2023 Pawel Curtisanjali Plan Of Treatment No Information Progress Notes * Irineo WALLIS DOB:01/1941 (84 yo M)Acc No.[id number]:08/02/2023 Patient:?Irineo WALLIS Jr :?Pawel Echavarria DPMDOB:1940???Age:83 Y???Sex: MaleDate:08/02/2023hone:[phone]:[address], [id number]: Feliciano Ambrosio Subjective: * Chief Complaints: * 1 . [...] Electronic signature of Pawel Echavarria DPM on 12/30/2024 at 03:42 PM EDTSign off status: Pending * Provider: Danae Echavarria DPM Date: 0 08/02/2023 Generated for Printing/Faxing/eTransmitting on:?12/30/2024 03:42 PM EDT
--- OUTSIDE RECORDS SUMMARY | 2024-03-26 05:45 | XMS_ITS ---
Author Organization [facility] Address [facility] [place] [address] Care Team Providers Care Route Sales Manager Name Role Phone Feliciano Ambrosio Primary Care Provider Pawel Teague Unavailable [phone] Allergies Allergen (clinical drug ingredient) Drug/Non Drug [...] Encounter Location Date Provider Diagnosis [facility] [address] [place] [address] 03/26/2024 Pawel Echavarria Plan Of Treatment No Information Progress Notes * PADDYIrineo BARRIOS DOB:01/1941 (84 yo M)Acc No.[id number]:03/26/2024 Patient:?PADDYIrineo BARRIOS Jr :?NINI JimenezMDOB:1940???Age:83 Y???Sex: MaleDate:03/26/2024Phone:[phone]:[address], [place], [place]Qbw: Feliciano Ambrosio Subjective: * Chief Complaints: * [...] of Pawel Echavarria DPM on 12/30/2024 at 03:43 PM EDTSign off status: Pending * Provider: Danae Echavarria DPM Date: 0 03/26/2024 Generated for Printing/Faxing/eTransmitting on:?12/30/2024 03:43 PM EDT
--- OUTSIDE RECORDS SUMMARY | 2024-04-13 05:20 | XMS_ITS ---
Author Organization [facility] Address [address] [place] [address] Care Team Providers Care Picking Machine Operator Name Role Phone Randi Burris Unavailable [phone] SIXTO SIMMONS CNP Unavailable Unavailable REASON FOR VISIT L2-5 DECOMPRESSION AND NON INSTRUMENTED FUSION, [facility] , 02/20 Encounters Encounter Location Date Provider Diagnosis [facility] [facility] [address] [place] [address] [place] [address] 04/13/2024 Randi Burris Plan Of Treatment No Information Progress Notes * TAVO WALLIS JR RDOB:01/1941 (84 yo M)Acc No.[id number]:04/13/2024 Progress Notes Patient: Sharifa BRAVO TAVO [place] :?Randi Man MD, PhDDOB:1940 ???Age:83 Y???Sex:MaleDate:04/13/2024Phone:[phone]:[address] [place], [id number] Subjective: * Chief Complaints: * 1 . L2-5 DECOMPRESSION AND NON INSTRUMENTED FUSION, [facility] , 02/20. * Medical History: * Surgical History: R otator cuff surgery , L2-5 laminectomy, PSF 02/21/2024. Objective: * Vitals: Assessment: Plan: * Treatment: Forms: * Images: * Electronic signature of Randi Burris MD, PHD on 12/30/2024 at 03:42 PM EDT Sign off status: Pending * Provider: Myranda Man MD, PhD Date: 0 04/13/2024 Generated for Printing/Faxing/eTransmitting on:?12/30/2024 03:42 PM EDT
--- OUTSIDE RECORDS SUMMARY | 2024-05-25 06:30 | XMS_ITS ---
Author Organization [facility] Address [address] [place] [address] Care Team Providers Care Fitting Supervisor Name Role Phone Randi Burris Unavailable [phone] SIXTO SIMMONS CNP Unavailable Unavailable REASON FOR VISIT S.P I & D, 04/13/24 Encounters Encounter Location Date Provider Diagnosis [facility] [facility] [address] [place] [address] [place] [address] 05/25/2024 Randi Burris Plan Of Treatment No Information Progress Notes * TAVO WALLIS JR RDOB:01/1941 (84 yo M)Acc No.[id number]:05/25/2024 Progress Notes Patient: Sharifa BRAVO TAVO MCFARLAND :?Randi Man MD, PhDDOB:1940 ???Age:83 Y???Sex:MaleDate:05/25/2024Phone:[phone]:[address] [id number] Subjective: * Chief Complaints: * 1 . S.P I & D, 04/13/24. * Medical History: * Surgical History: R otator cuff surgery , L2-5 laminectomy, PSF 02/21/2024, Lumbar wound I & D 04/17/2024. Objective: * Vitals: Assessment: Plan: * Treatment: Forms: * Images: * Electronic signature of Randi Burris MD, PHD on 12/30/2024 at 03:43 PM EDT Sign off status: Pending * Provider: Myranda Man MD, PhD Date: 0 05/25/2024 Generated for Printing/Faxing/eTransmitting on:?12/30/2024 03:43 PM EDT
--- OUTSIDE RECORDS SUMMARY | 2024-06-08 06:10 | XMS_ITS ---
Author Organization [facility] Address [address] [place] [address] Care Team Providers Care Inspector Final Assembly Electrical Name Role Phone Randi Burris Unavailable [phone] SIXTO SIMMONS CNP Unavailable Unavailable REASON FOR VISIT lumbar recheck Medications Medication SIG (Take, Route, Frequency, Duration) Notes Start Date End Date Status magnesium oxide ActivepramipexoleActivetraZODoneActivepotassium chlorideActiveOxycodoneActive Flexeril 10 mg1 tab(s) orally 3 times a day prn muscle qyzhum72/16/2024Active Flexeril 10 mg1 tab(s) orally 3 times a day5ActiveatorvastatinActive EliquisActiveallopurinolActivelevothyroxineActiveeszopicloneActivebumetanide Active Encounters Encounter Location Date Provider Diagnosis [facility] Office [address] [place] [address] [place] [address] 06/08/2024 Randi Burris Plan Of Treatment Pending Test Test Name Order Date Lumbar spine 2v ap and lat - 63992 06/08 Progress Notes * TAVO WALLIS JR RDOB:01/1941 (84 yo M)Acc No.[id number]:06/08/2024 Patient:?TAVO WALLIS JR :?Randi Man MD, PhDDOB:1940 ???Age:83 Y???Sex:MaleDate:06/08/2024Phone:[phone]:[address] [id number] Subjective: * Chief Complaints: * 1 . [...] Lumbar spine 2v ap and lat - 14643 Forms: * Images: * Electronic signature of Randi Burris MD, PHD on 12/30/2024 at 03:43 PM EDT Sign off status: Pending * Provider: Myranda Man MD, PhD Date: 0 06/08/2024 Generated for Printing/Faxing/eTransmitting on:?12/30/2024 03:43 PM EDT
--- OUTSIDE RECORDS SUMMARY | 2024-07-20 06:00 | XMS_ITS ---
Author Organization [facility] Address [address] [place] [address] Care Team Providers Care Watch Crystal Edge Grinder Name Role Phone Randi Burris Unavailable [phone] SIXTO SIMMONS CNP Unavailable Unavailable REASON FOR VISIT LUMBAR RECHECK Medications Medication SIG (Take, Route, Frequency, Duration) Notes Start Date End Date Status Flexeril 10 mg 1 tab(s) orally 3 times a day pr n muscle spasms 4ActiveFlexeril 10 mg1 tab(s) orally 3 times a day5Active atorvastatinActiveallopurinolActiveEliquisActivemagnesium oxideActiveOxycodone ActiveeszopicloneActivelevothyroxineActivebumetanideActivetraZODoneActive pramipexoleActivepotassium chlorideActive Encounters Encounter Location Date Provider Diagnosis [facility] Office [address] [place] [address] [place] [address] 07/20/2024 Randi Burris Plan Of Treatment No Information Progress Notes * TAVO WALLIS JR RDOB:01/1941 (84 yo M)Acc No.[id number]:07/20/2024 Patient:?TAVO WALLIS JR :?Randi Man MD, PhDDOB:1940 ???Age:84 Y???Sex:MaleDate:07/20/2024Phone:[phone]:[address], [id number] Subjective: * Chief Complaints: * 1 . [...] PhD Date: 0 07/20/2024 Generated for Printing/Faxing/eTransmitting on:?12/30/2024 03:43 PM EDT
--- OUTSIDE RECORDS SUMMARY | 2024-08-10 06:20 | XMS_ITS ---
Author Organization [facility] Address [address] [place] [address] Care Team Providers Care Cryptologic Supervisor Name Role Phone Randi Burris Unavailable [phone] SIXTO SIMMONS CNP Unavailable Unavailable REASON FOR VISIT LUMBAR RECHECK Encounters Encounter Location Date Provider Diagnosis [facility] Office [address] [place] [address] [place] [address] 08/10/2024 Randi Burris Plan Of Treatment No Information Progress Notes * TAVO WALLIS JR RDOB:01/1941 (84 yo M)Acc No.[id number]:08/10/2024 Patient:?TAVO WALLIS JR :?Randi Man MD, PhDDOB:1940 ???Age:84 Y???Sex:MaleDate:08/10/2024Phone:[phone]:[address] [phone] Subjective: * Chief Complaints: * 1 . LUMBAR RECHECK. * Medical History: Objective: * Vitals: Assessment: Plan: * Treatment: Forms: * Images: * Electronic signature of Randi Burris MD, PHD on 12/30/2024 at 03:42 PM EDT Sign off status: Pending * Provider: Myranda Man MD, PhD Date: 0 08/10/2024 Generated for Printing/Faxing/eTransmitting on:?12/30/2024 03:42 PM EDT
--- OUTSIDE RECORDS SUMMARY | 2024-08-31 06:40 | XMS_ITS ---
Author Organization [facility] Address [address] [place] [address] Care Team Providers Care Linen Keeper Name Role Phone Randi Burris Unavailable [phone] SIXTO SIMMONS CNP Unavailable Unavailable REASON FOR VISIT LUMBAR RECHECK Medications Medication SIG (Take, Route, Frequency, Duration) Notes Start Date End Date Status atorvastatin ActiveallopurinolActiveEliquisActiveFlexeril 10 mg1 tab(s) orally 3 times a day 5ActiveFlexeril 10 mg1 tab(s) orally 3 times a day prn muscle spasms 4ActiveOxycodoneActivelevothyroxineActivemagnesium oxideActive bumetanideActiveeszopicloneActivepotassium chlorideActivetraZODoneActive pramipexoleActive Encounters Encounter Location Date Provider Diagnosis [facility] [address] [place] [phone] 08/31/2024 Randi Burris Plan Of Treatment Pending Test Test Name Order Date Lumbar spine 2v ap and lat - 82876 08/31 Progress Notes * TAVO WALLIS JR RDOB:01/1941 (84 yo M)Acc No.[id number]:08/31/2024 Patient:?TAVO WALLIS JR :?Randi Man MD, PhDDOB:1940 ???Age:84 Y???Sex:MaleDate:08/31/2024Phone:[phone]:[address] [place] [id number] Subjective: * Chief Complaints: * 1 . [...] Lumbar spine 2v ap and lat - 77151 * Procedure Codes: 7 2100 X-ray Lumbar Spine, 2 view Forms: * Images: * Electronic signature of Randi Burris MD, PHD on 12/30/2024 at 03:43 PM EDT Sign off status: Pending * Provider: Myranda Man MD, PhD Date: 0 08/31/2024 Generated for Printing/Faxing/eTransmitting on:?12/30/2024 03:43 PM EDT
--- OUTSIDE RECORDS SUMMARY | 2024-12-28 20:31 | XMS_ITS | Continuity of Care Document ---
Author Organization [facility] Address [address] [place] [address] Phone Care Team Providers Care Bankruptcy Assistant Name Role Phone Feliciano Ambrosio DO Primary Care Provider Frankie Reynolds MD Attending Provider Terence Steele PA-C Emergency Provider Frankie Johnson DO Admit Provider Franck Gagnon DO Other Provider [phone] Jovany Stovall MD Attending Provider [phone] Jovany Stovall MD Other Provider Frankie Johnson DO Attending Provider Keely Montoya APRN Attending Provider Sree Thao DO Emergency Provider Akash Mccartney MD Admit Provider Michele Knight MD Attending Provider Cristy Prince [facility] Attending Provider Liliana Miller DO Attending Provider [phone] Care Teams Patient Care Team Team Status: Active Member Role/Relationship Status Dates Bhupinder Mcintyre DO Specialist Active Visit Care Team Team Status: Inactive Member Role/Relationship Status Dates Feliciano Ambrosio DO Primary Care Provider Active Sta rt: October 04, 2024 End: October 04, 2024Mickari Reynolds , MDAttending ProviderActiveStart: October 04, 2024 End: October 04, 2024 Visit Care Team Team Status: Active Member Role/Relationship Status Dates Feliciano Ambrosio DO Primary Care Provider Active Sta rt: October 06, 2024 Frankie Reynolds MDAttending ProviderActiveStart: October 06, 2024 Visit Care Team Team Status: Active Member Role/Relationship Status Dates Feliciano Ambrosio DO Primary Care Provider Active Sta rt: October 06, 2024 Arleen Mares ProviderActiveStart: October 06, 2024 Frankie Johnson DOAdmit ProviderActiveStart: October 06, 2024 Franck Gagnon DOOther ProviderActiveStart: October 06, 2024 Jovany Stovall MDAttending ProviderActiveStart: October 06, 2024 Jovany Stovall MDOther ProviderActiveStart: October 06, 2024 Visit Care Team Team Status: Inactive Member Role/Relationship Status Dates Feliciano Ambrosio DO Primary Care Provider Active Sta rt: October 07, 2024 End: October 10, 2024Arleen Mares ProviderActiveStart: October 07, 2024 End: October 10, 2024Mickari Johnson DOAdmit ProviderActiveStart: October 07, 2024 End: October 10, 2024Mickari Johnson DOAttending ProviderActiveStart: October 07, 2024 End: October 10, 2024 Visit Care Team Team Status: Inactive Member Role/Relationship Status Dates Feliciano Ambrosio DO Primary Care Provider Active Sta rt: October 31, 2024 End: October 31, 2024Jennifer Singhending ProviderActiveStart: October 31, 2024 End: October 31, 2024 Visit Care Team Team Status: Inactive Member Role/Relationship Status Dates Feliciano Ambrosio DO Primary Care Provider Active Sta rt: November 06, 2024 End: November 06, 2024Zaire Gibbons ProviderActiveStart: November 06, 2024 End: November 06, 2024 Visit Care Team Team Status: Inactive Member Role/Relationship Status Dates Feliciano Ambrosio DO Primary Care Provider Active Sta rt: November 29, 2024 End: November 29, 2024Elenandrés Montoya APRNAttending ProviderActiveStart: November 29, 2024 End: November 29, 2024 Visit Care Team Team Status: Inactive Member Role/Relationship Status Dates Feliciano Ambrosio DO Primary Care Provider Active Sta rt: December 04, 2024 End: December 04, 2024Elenandrés Montoya , APRNAttending ProviderActiveStart: December 04, 2024 End: December 04, 2024 Visit Care Team Team Status: Inactive Member Role/Relationship Status Dates Feliciano Ambrosio DO Primary Care Provider Active Sta rt: December 12, 2024 End: December 18antonio Thao DOEmergency ProviderActiveStart: December 12, 2024 End: December 18, 2024Akash Mccartney MDAdmit ProviderActiveStart: December 12, 2024 End: December 18, 2024Rabecka Knight MDAttending ProviderActiveStart: December 12, 2024 End: December 18, 2024 Patient Care Team Team Status: Active Member Role/Relationship Status Dates Feliciano Ambrosio DO Primary Care Provider Active Sta rt: December 27, 2024 Cristy Prince NP-CAttending ProviderActiveStart: December 27, 2024 Patient Care Team Team Status: Inactive Member Role/Relationship Status Dates Liliana Miller DO Attending Provider Active Start: December 27, 2024 End: December 27, 2024 Chief Complaint and Reason for Visit Chief Complaint Admit Date Ref: Dr. 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 For a brain CT. This must be done prior to the appointment with Dr. Stovall.Please call to schedule an appointment for right heel stage 3 pressure injury.[facility] Phone: [phone] [place] [phone] Gomez APRNWork Phone: [phone] [place] [phone] a brain CT. This must be done prior to the appointment with Dr. Stovall.[facility] , MedWork Phone: [phone] [place] [phone] call to schedule follow up appointment following discharge from alf facility.Louis Garcia: [email or web address] Work Phone: [phone] [facility] [address] [place] [id number] have the Brain CT done 1 day prior to this appointment. This appointment is scheduled with Dr. Stovall's Nurse Practitioner.Jovany Stovall MDWork Phone: fpg [facility] [address], [address] [place] [phone] Health Concerns Concerns Start Date A [facility] screening has identified you as FRAIL or [...] Four Ways to Beat the Frailty Risk [email or web address]-evyinq-qbwn- wivi-hk-muog-the-fra ilty-riskA [facility] screening has identified you as FRAIL or [...] Four Ways to Beat the Frailty Risk [email or web address]/xyqw-aejvnz-qiui- mpkb-of-diog-the-fra ilty-risk Allergies, Adverse Reactions, Alerts Allergen Type Severity Reaction Last Updated Verified Status Comments fentanyl Allergy Unknown Dizziness, loopy Octobe r 2024 12:23pm Yes Active indomethacinAllergyUnknownDizzinessOctober 2024 12:23pmYesActivezolpidem AllergyUnknownConfusion, memory lossOctober 2024 12:23pmYesActive PenicillinsAllergyUnknownWeaknessOctober 2024 12:88hfTjxKybety0/5/25 - had a penicillin injection prior to a procedure 20-30 years ago and fell down some stairs afterward Social History Smoking Status Status Start Date End Date Date of Observa tion Ex-smoker (finding) December 14, 2024 11:17am Observation Status Observation Response Date of Response Legal Sex Male (finding) Sex Assigned At BirthMaleMay 1940 Social History Assessments Assessment Value Date Recorded SDOH Follow up December 18, 2024 11:09amQuestionAnswerDate RecordedHas the SDOH screening changed since admission?NOctober 2024 11:09am Assessment Value Date Recorded SDOH Follow up December 14, 2024 10:13amQuestionAnswerDate RecordedHas the SDOH screening changed since admission?NOctober 2024 10:13am Assessment Value Date Recorded SDOH Follow up October 09, 2024 11:45amQuestionAnswerDate RecordedHas the SDOH screening changed since [facility] Family History Relationship Condition Age at Onset Recorded Date/T jc mother Alzheimer's disease Unknown History of coronary artery bypass surgeryUnknownCoronary artery diseaseUnknown Myocardial infarctionUnknownHeart diseaseUnknownHypertensionUnknownbrother Myocardial infarctionUnknownfatherHepatic cirrhosisUnknownDeceasedUnknownsister Malignant neoplasmUnknownbrotherHeart diseaseUnknownsonMalignant neoplasmUnknown Problems Active Problems Problem Diagnosis/Recorded Date Onset Date Status C omments LIS (acute kidney injury) March 10, 2024 11:50am Unknow n Active Severe back painJuly 2024 3:41pmUnknownActiveOpen wound of skinOctober 2023 12:06pmUnknownActivePressure ulcer of coccygeal region, stage 2 December 17, 2024 3:15pmUnknownActiveStage III pressure ulcer of right heel December 17, 2024 3:15pmUnknownActiveCompression fracture of L1 lumbar vertebra November 06, 2024 10:28amUnknownActiveCOVID-19Jan2024 4:06pmUnknown ActiveInsomniaApril 2023 3:48pmUnknownActiveInsomniaJuly 2023 9:40am UnknownActiveScreening for prostate cancerJuly 2023 10:20amUnknownActiveHx of decompressive lumbar laminectomyAugust 2019 11:46pdNjzxeecOzweht5364- with tumor resectionLow back painNovember 2021 1:29pmUnknownActiveSleep apneaAugust 2019 11:09amUnknownActivedoes not use equipmentRadicular low back painJuly 2024 3:42pmUnknownActiveFatigueJanuary 2024 4:06pm UnknownActiveCatheter-associated urinary tract infectionJuly 2024 2:12pm UnknownActiveChronic CHFOctober 2019 12:36pmUnknownActiveMuscle pareses December 27, 2023 1:23pmUnknownActiveMyxopapillary ependymomaAugust 2019 11:64jlHhivxhxItuckb6445Aek related osteoporosisSeptember 2024 10:30am UnknownActiveBradycardiaNovember 2021 12:30pmUnknownActiveEdemaOctober 2019 7:18pmUnknownActiveVenous ulcer of left legOctober 2023 1:20pm UnknownActiveHyperlipidemiaJuly 2023 9:40amUnknownActiveWeakness of both lower extremitiesSeptember 2024 10:30amUnknownActiveVenous insufficiency September 21, 2023 9:40amUnknownActiveFallsOctober 2024 3:14amUnknownActiveDVT prophylaxisOctober 2019 1:11pmUnknownActiveNeurogenic claudication due to lumbar spinal stenosisJuly 2024 3:41pmUnknownActiveUrinary tract infection associated with indwelling urethral catheterJuly 2024 2:35pmUnknownActive Intracranial hemorrhageAugust 2024 9:15pmUnknownActiveLumbar spondylolysis September 21, 2023 9:40amUnknownActiveConstipationJuly 2023 9:40amUnknown ActiveCellulitis and abscess of left legOctober 2023 1:23pmUnknownActive Inactive/Resolved Problems Problem Diagnosis/Recorded Date Onset Date Status C omments Bacteremia due to Pseudomonas 2024 9:56am Unknow n Resolved Bacteremia due to EnterococcusMay 2024 9:57amUnknownResolvedImpaired activities of daily livingOctober 2019 11:53amUnknownResolvedBPH (benign prostatic hyperplasia)September 21, 2023 9:40amUnknownResolvedLow serum prealbumin December 26, 2019 12:36pmUnknownResolvedAcute respiratory failure with hypoxia January 09, 2022 3:28pmUnknownResolvedMedication side effectSeptember 2019 2:02pmUnknownResolvedAcute exacerbation of congestive heart failureOctober 2019 1:07pmUnknownResolvedCHF exacerbationMay 2024 6:42pmUnknown ResolvedHematuriaMay 2024 6:42pmUnknownResolvedLacerationFebruary 2017 3:13pmUnknownResolvedAcute decompensated heart failureNovember 2021 12:43pm UnknownResolvedHFrEF (heart failure with reduced ejection fraction)December 21, 2019 1:51pmUnknownResolvedComplicated UTI (urinary tract infection)2024 9:56amUnknownResolvedAbscessMay 2024 12:20pmUnknownResolvedHypoxemia January 09, 2022 12:43pmUnknownResolvedAtrial fibrillationJuly 2023 9:40amUnknownResolvedAcute on chronic congestive heart failure with left ventricular diastolic dysfunctionNovember 2021 3:27pmUnknownResolvedStatus post total left knee replacementSeptember 2019 9:36amUnknownResolved HypothyroidismJuly 2023 9:40amUnknownResolvedPleural effusionNovember 2021 3:28pmUnknownResolvedElevated troponinNovember 2021 12:43pmUnknown ResolvedAbscess of left legMay 2024 9:57amUnknownResolvedBladder retention January 09, 2022 3:28pmUnknownResolvedAnasarcaOctober 2019 11:53am UnknownResolvedFalls frequentlyNovember 2021 3:27pmUnknownResolved Generalized weaknessOctober 2019 11:53amUnknownResolvedHypoxiaMay 2024 6:42pmUnknownResolvedSepsisMay 2024 6:49pmUnknownResolvedLeft ankle painOctober 2019 10:30amUnknownResolvedAltered mental statusSeptember 2019 12:15pmUnknownResolvedDebilityOctober 2019 12:28pmUnknownResolved Difficulty walkingNovember 2021 3:28pmUnknownResolvedHypertensionJuly 2023 9:40amUnknownResolvedConstipationNovember 2021 3:28pmUnknownResolved FallNovember 2021 12:43pmUnknownResolvedFallAugust 2024 9:15pmUnknown ResolvedAtrial fibrillation with RVROctober 2024 3:14pmUnknownResolved Abrasion of arm, leftAugust 2024 9:15pmUnknownResolvedDehydrationSeptember 2019 2:02pmUnknownResolved Medications Medication Status Dose Units Route Directions Qty Days Refills S tart Date Stop Date End Date Reason(s) Instructions Adherence Bumetanide 1 mg tablet Discontinued 1 MG PO Alexander y 90 3April 2023 3:47pmJanuary 2024 11:17amEszopiclone 3 mg tablet Tfnyntipqdwr6PZKGXkpgm at zphlopp40774Acgiv 2023 3:47pmApril 2023 4:29pmInsomnia Insomnia, unspecifiedTrazodone 50 mg ufrttjWmyvyrgcaari65FPLWQhwfv at bedtime as needed for lxhyxeqy835Lqsfm 2023 3:49pmSeptember 2023 12:01pm Eszopiclone 3 mg ktvdioKssibhqpevms6LRCZTccwg at udrloll82732Jeiaz 2023 4:29pmSeptember 2023 12:01pmInsomnia Insomnia, unspecifiedLevothyroxine (Synthroid) 150 mcg fzkcfkRdszpglrdfdv706BHT POEvery xucxibw877Aevbn 2nd, 2024 1:40pmSeptember 2023 9:26amPotassium Chloride (Klor-Con M20) 20 mEq tablet,ER particles/kikvdhtyRwmiqipfxurj71XCLWH Ecisb983Pqaww 2023 12:00amJanuary 2024 1:33pmAtorvastatin 40 mg tablet Cbzhhrxzcnrp35PMIIXvxng388Lppz 27th, 2024 2:09pmAugust 2024 7:31pm Levothyroxine (Synthroid) 150 mcg xixffgPgbhzeqstyhz981UKBDSGrsvb gxgamjz334 November 18, 2023 9:25amSeptember 2023 12:01pmEszopiclone 3 mg tablet Khvnvmtqbhfp3HNUEBpwkq at tiygksx80082Wvoecmtqt2023 12:01pmJune 2024 10:33amInsomnia Insomnia, unspecifiedLevothyroxine (Synthroid) 150 mcg jigpyvHjiuvl303DLYSGIvwqq pnvtslo249Gyrvmieio2023 12:01pmUnknownTrazodone 50 mg gykgyyNlvhax68VBXC Daily at bedtime as needed for perkqlwy740Ymvzvxddy2023 12:01pmUnknown Doxycycline Hyclate 100 mg rfojwnWsfbxhdawhdm987RWLBMuwag hffax403Mlzztgj2023 12:00amDecember 2023 10:23amOpen wound of skin Other injury of unspecified body region, initial encounterSulfamethoxazole- Trimethoprim (Bactrim Ds) 800-160 mg uswpwgNjdhcwsfumaz2ZPPWEMktxb lcypj924 December 23, 2023 12:00amDecember 2023 10:23amOpen wound of skin Other injury of unspecified body region, initial encounterMupirocin 2 % ointment Xkwnuyrfprmu3GAJCRGAUWEGAITykhj scplo899Ktrikvm2023 12:06pmJanuary 2024 11:14amOpen wound of skin Other injury of unspecified body region, initial encounter1 application Externally Twice a dayEszopiclone 3 mg iatxnfBywriyjlrgsm1DJJDCckru at 2024 10:33amJun2024 9:18amInsomnia Insomnia, unspecifiedCiprofloxacin Hcl (Cipro) 500 mg secxnvYuvodnvqkfgi132NVHB Twice lsjju09280Khhf 25th, 2025 12:00amJuly 2024 3:15pmEszopiclone 3 mg jlwfmcGkldnyagefax8AOZCRgdyl at ftfaaoc89094Lpib 25th, 2025 9:18amAugust 2024 7:28pmInsomnia Insomnia, unspecifiedNystatin 100,000 unit/gram wlwbiqTkhlvj4QWBVPEXTGBBWFVodos nlmql893Solt 2024 12:28pmUnknownHydrocodone-Acetaminophen (Lambert) 5-325 mg kzienuVoeqkjvqcekk0UHVYGH3I as needed for qvvk364Gllkgvkre 2019September 2019 9:42amOther injury of unspecified body regionCephalexin (Keflex) 500 mg jganrbpIylorpgadjni845ZOSLV74A71608Tkohuwch 2017 1:00amFebruary 2017 1:00amFebruary 2017 1:02amAtorvastatin 40 mg yxysqkJzyfcvufplrp20ETNR BedtimeAugust 2019 12:00amOctober 2019 12:33pmhyperlipidemia Allopurinol 300 mg harfbcVyigplqltfbs124IJXDWqweeOxlkyt 2019 12:00January 04, 2020 12:34pmEszopiclone (Lunesta) 3 mg fvekezQyobcpugldpf7VQTQ Daily at bedtimeAugust 2019 12:00amOctober 2019 12:33pmMirabegron (Myrbetriq) 50 mg tablet extended release 24 bbDuuxodsttgmk73FPEOBempg with lunchAugust 2019 12:00amOctober 2019 12:34pmApixaban (Eliquis) 5 mg erltjrWonsqziabhkn9NBPQGxfyq dailyAugust 2019 12:00amOctober 2019 12:61lsi-odvVscgwahlos-Qiodbckwz (Entresto) 24-26 mg pkanrhJnksnldmsoyg8MUGCH Twice dailyAugust 2019 12:00amOct2019 12:33pmOn Hold: Resume on 12/27/19.Carvedilol 6.25 mg TabletDiscontinued6.25MGPOTwice dailyAugust 2019 12:00amOctober 2019 12:33pmheartLevothyroxine 150 mcg Tablet Glnfmydpoiin463FOBKBJedawSjrmnq 2019 12:00amOctober 2019 12:33pm hypothyroidismBumetanide 1 mg QutuvkYhcwqvluyhmw9LFRNNbmzaAblssb 2019 12:00amOctober 2019 12:33pmheart failureOn Hold: Resume on 12/26/19. Digoxin 125 mcg (0.125 mg) CwgydiHprbhujamneg445ZAFPCRaoqhRlrfjs 2019 12:00amOctober 2019 12:33pma-fibMagnesium Oxide 400 mg magnesium Tablet Ujtpxpyilahh018LLGBJjizhBnzovr 2019 12:00amOctober 2019 12:33pma-fib Oxybutynin Chloride 10 mg Tablet Extended Release 00epJcgkvvtvyzol88MGZKVwsmg with lunchAugust 2019 12:00amOctober 2019 12:34pmUrinary symptoms Azelastine 137 mcg (0.1 %) Aerosol,SprayDiscontinuedINTRANASALAugust 2019 12:00amAugust 2019 5:12pmAzelastine-Fluticasone 137-50 mcg/spray [place],Non-KmmqcgeOarummghhnab5AGKTHXQQSATKQJAKdxab dailyAugust 2019 12:00amOctober 2019 11:02amAcetaminophen (Tylenol) 325 mg Tablet Tdjlxqwwxmzh682MBPHUsoxu dailyAugust 2019 12:00amSeptember 2019 9:42ampainHydroxyzine Pamoate 50 mg OrsijjsPdpsojxnysyw39NFDKM5W as needed for Muscle Yeglr26Vbtjijixi 2019 12:00amOctober 2019 12:33pmDocusate Sodium (Dok) 100 mg RrtdwloTuoarkyzypgk629GSONFlfqm yvhws70Ulmfadrgj 2019 12:00amOctober 2019 12:33pmHydroxyzine Pamoate 25 mg SlukhdiKlhgowkvzjud52 EENWD2M as needed for Muscle Ytatb47Ucwydgsvt 2019 12:00amOctober 2019 12:33pmOxycodone-Acetaminophen (Percocet) 5-325 mg tabletDiscontinued1 - 2 TABPOEVERY 4-6 HOURS as needed for dvgq0168Gamcgtrzv 2019October 2019 12:33pmPresence of left artificial knee jointIpratropium-Albuterol 0.5 mg-3 mg(2.5 mg base)/3 mL solution for nqsgrqftxkchIwllfu1UWMAMMUFMZNBLbkel times dailyOctober 2024 12:00amUnknownBudesonide 0.5 mg/2 mL suspension for nebulizationActive0.5MGINHALATIONTwice dailyOctober 2024 12:00amUnknown Acetaminophen (Acetaminophen Extra Strength) 500 mg haolpjMkgkzc7346UZEMXcbwz times daily as needed for painOctober 2024 12:00amUnknownApixaban (Eliquis) 5 mg zyzcuxTgvujrdgwhig2PWSPIcsnl dailyOctober 2024 12:00amOctober 2024 11:08amDiltiazem Hcl 30 mg CnbdnmQhkunt55FTQBJsktj ihdns275274Aymsylk 2024 12:00amUnknownErtapenem 1 gram Recon JyonLgfotcilvqne1UWJYZ95I924Hmhmxmt 2024 12:00amOctober 2024 12:00amOctober 2024 12:01am Pramipexole 0.25 mg tabletActive0.25MGPODaily as needed for tremor(s)0300October 2024 11:08amUnknownPotassium Chloride 20 mEq Tablet Extended Release Efmkdscsflhd24ULSIEEsezahtEbzsytq 2019 12:00amOctober 2019 12:33pmOn Hold: Resume on 12/26/19.Sulfamethoxazole-Trimethoprim (Bactrim Ds) 800-160 mg CvkxxfQtlvbbrevjzs5ELPHOG21ITzolakf 2019 12:00amOctober 2019 1:37pm Atorvastatin 40 mg IueryaZuvqjyfozkxc96CHPJQejhg at xtrbuzg275Ngvlcyn 2019 12:00amApril 2023 11:57amCarvedilol 6.25 mg TabletDiscontinued6.25MGPOTwice daily with fhrai673GcynjugJanuary 04, 2020 12:2021 1:30pm Hydroxyzine Pamoate 50 mg WuwumahRdxeqzywrxxr04BCGEP1G as needed for Muscle Mbkgn91OiybvzaJanuary 04, 2020 12:2021 2:10pmAcetaminophen 500 mg JkwjzeNerafpwkvxlm6921DMZGIonlo beupp325HsjakhcJanuary 04, 2020 12:00amApril 2023 11:56amOxycodone-Acetaminophen 5-325 mg NdfhnrTprodzjndjhp0YJRLEH5H as needed for Mild Nmfb2612GzmfcucJanuary 04, 2020November 2021 1:30pmStatus post total left knee replacement Presence of left artificial knee jointFolic Acid-Vit B6-Vit B12 (Folbee) 2.5-25-1 mg YeicvpSdtcfzzvzzwq4MBBNJLuitd129Vtnpqco 30th, 2020 12:2021 2:09pmPotassium Chloride (Klor-Con M20) 20 mEq Tablet,Er Particles/NbrvpzwwTnbssmavutuw43KWYYBExnnm123Zrbswcv 30th, 2020 12:2021 2:35pmMagnesium Oxide 400 mg (241.3 mg magnesium) TabletDiscontinued 762TXTPSkvlr497Mvrzbqc 30th, 2020 12:00amApril 2023 11:57amLevothyroxine (Synthroid) 150 mcg PhcbggTzjdgzfgzcpe738TRUJIXJKPW@7744305HjcslhxJanuary 04, 2020 12:00amApril 2023 11:57amDocusate Sodium (Dok) 100 mg CapsuleDiscontinued 100MGPOTwice tihpp146Tlslwfu2019 12:00amApril 2023 11:57amOxybutynin Chloride 5 mg Tablet Extended Release 56fhQorgwggnqtky36WRUNTuxnx with qpily329 January 04, 2020:2021 2:36pmBumetanide 1 mg Tablet Gzcphrcxqwgs0KMSDUFONP@0501006Oeovzff2019 12:00amN2021 2:35pmAllopurinol 300 mg YimwpdLysrmmywsvmc295ZWTCDvzlx996Bzbrtdf 30th, 2020 12:00amApril 2023 11:57amDigoxin 125 mcg (0.125 mg) EbbgjyTnmmnhxoxquk170 ZDUZLVuegd301Ogwivnl 30th, 2020 12:002021 1:30pmFluticasone Propionate 50 mcg/actuation [place],WvdvdagpdeMqycjqqkmcca5PKJNQDEKFM-KZOKKdhif usqib041RoiobvvJanuary 04, 2020 12:002021 2:10pmHydroxyzine Pamoate 25 mg FcwdkuuUscdayexooyh07SFQZH7O as needed for Muscle Xmats014BkigpecJanuary 04, 2020 12:002021 2:10pmDiclofenac Sodium 1 % BxeYrpmqwyhvrkd1MN TOPICALThree times daily as needed for stps169VcojbllJanuary 04, 2020 12:2021 2:10pmMelatonin 5 mg EbazafAsrdojvvnteq8AFTYZuszx at dongfye662OmazxvaJanuary 04, 2020 12:00formerly [facility]2021 2:09pmLactulose 20 gram/30 mL Solution Brxulunlnrsu87IKATBsson as needed for Zqylrplkkrnn8340Bdnjaeh 30th, 2020 12:00am January 09, 2022 2:11pmMirabegron (Myrbetriq) 25 mg Tablet Extended Release 24 PhEjlcyfniarmk53FBLSNhfnd with unwgg150IqcxvohJanuary 04, 2020 12:002021 2:36pmApixaban (Eliquis) 5 mg LtofckHwidfngxylvz9LLZCVzozm egnwx160ZhycmbhJanuary 04, 2020 12:00amApril 2023 11:57amSacubitril-Valsartan (Entresto) 24-26 mg MgxdpyYknzhiyiruvi1SJHPQRtavv ouipi625EnfvbfcJanuary 04, 2020 12:00amNove2021 1:30pmTrazodone 50 mg vfshkzQqoinvczgcmm56TLQZFcqlmuvRfutaowa 5th, 2022 12:00amApril 2023 11:57amEszopiclone 3 mg kaarbfQluvlpiawugf0KADF BedtimeNovember 2021 12:00amApril 2023 11:57amFluticasone Propionate 50 mcg/actuation spray,azlwcnhxtuOzjumcfsaqft2IDCQDHAZGX-GLTBYovqw at bedtime as needed for Nasal CongestionNovember 2021 2:10pmApril 2023 11:57am Potassium Chloride (Klor-Con M20) 20 mEq tablet,ER particles/crystals Ucquagkmzrkl05XAOCYZkfgh eveningNovember 2021 2:35pmApril 2023 11:57am Bumetanide 1 mg tabletDiscontinued0.5MGPODAILY@0800Nov2021 2:35pm January 16, 2022 1:30pmSulfamethoxazole-Trimethoprim (Bactrim Ds) 800-160 mg ZmepciHaxtweqyxorg4BYPAIUnnyd dailyNovember 2021 12:00amNovember 2021 1:30pmstarted 01/08/22 for 7 daysOxycodone-Acetaminophen 5-325 mg Tablet Karjungpeqjp7SLCPFC5L as needed for Moderate Pazw601Bdmxeigm pril 2023 11:57amLow back pain Low back pain, unspecifiedBumetanide 1 mg MqibxmHlhvyfeveknr2UHQDGCTWF@373171 January 16, 2022 1:00amApril 2023 11:57amClindamycin Hcl (Cleocin Hcl) 300 mg qqshbwpHkvdfboilrvu107YSNKWdnt times dailyJanuary 2024 1:00amMay 2024 4:01pmMetolazone 5 mg gfrdvvVtmjvanhwfdo2DYAUIzupkEndfpfm 2024 1:00amJanuary 2024 1:33pmCarvedilol 6.25 mg tabletDiscontinued6.25MGPOTwice dailyJanuary 2024 1:00amJanuary 2024 1:33pmmust administer with a meal/foodAcetaminophen (Acetaminophen Extra Strength) 500 mg tabletDiscontinued 500MGPOThree times dailyJanuary 2024 1:00amMay 2024 1:27pmBumetanide 1 mg kyfbewVanuto8FCYYIijvwAnubhqi 2024 1:00amUnknownCarvedilol 3.125 mg TabletDiscontinued3.125MGPOTwice xpgiz28230Zlqsmaq 2024 1:00amJuly 2024 3:14pmApixaban (Eliquis) 2.5 mg TabletDiscontinued2.5MGPOTwice bybqv11405 Eliza 2024 1:00amMay 2024 4:01pmTamsulosin 0.4 mg Capsule Discontinued0.6QMDTBpqum51329Xxfpwhn 2024 1:00amMay 2024 4:01pm Oxycodone-Acetaminophen 5-325 mg zsisjsAodqeydlrnhy6UAFWDHaoxe 6 hours as needed for nrot212Bpupbhb 2024 1:45pmMay 2024 1:26pmPotassium Chloride (Klor-Con M20) 20 mEq tablet,ER particles/egvlkaqxOaoqsy76DTOEHObxoq at bedtime July 12, 2024 12:00amUnknownDoxycycline Hyclate 100 mg twzvomCpssghkvvbcl353JIID Twice dailyMay 2024 12:00amMay 2024 1:26pmend date 07/14/2024 Ipratropium-Albuterol 0.5 mg-3 mg(2.5 mg base)/3 mL solution for nebulization Vpcwtprluaxa8VEVZTEGUVPQRXijpb 6 hours as needed for shortness of breath or wheezingMa2024 12:00amJuly 2024 1:59pmApixaban (Eliquis) 2.5 mg TpyimxPymsidbjjibs9RLUTZijvd dailyMay 2024 12:00amOctober 2024 11:08amCefepime 2 gram Recon PyokUtbzrwkysiyq7EGDFB15P0198Vyu 2024 12:00am Tatum 2024 3:14pmVancomycin 1,000 mg Recon BgjvPplgfenydebx4KGHYR64U178Gsi 2024 12:00amJuly 2024 3:16pmPolyethylene Glycol 3350 (Healthylax) 17 gram Powder In XxwnukDbrkaegjylfr56GYZCCcthk axrxb31BuoJuly 17, 2024 12:00amAugust 2024 7:29pmAcetaminophen (Acetaminophen Extra Strength) 500 mg tablet Vvxnmvjombxw642OWPEHlztw times daily as needed for fsdl179Sed 2024 1:26pm December 12, 2024 3:21pmOxycodone-Acetaminophen 5-325 mg fqvbqgEcfgynspaggo5FCD POEvery 6 hours as needed for smaq479Jgs 2024 7:29pm Abscess of left lower extremity Cutaneous abscess of left lower limbEszopiclone (Lunesta) 3 mg qqlfxxQupbql3GRXB Daily at bedtimeAugust 2024 12:00amUnknownPramipexole 0.25 mg tablet Discontinued0.25MGPODaily as needed for tremor(s)October 05, 2024 12:00amOctober 2024 11:08amAtorvastatin 40 mg zlqwckMmhurj78ZYOMRbori at bedtimeAugust 2024 12:00amUnknownOxycodone 5 mg HbefrxDbjmekdzmodc9YPZCQbhmc 4 hours as needed for Severe Rzve9281Cfwgak 2024Oct2024 3:19pmFall Unspecified fall, initial encounterLinezolid 600 mg pnuxeySoxuaisfzlqt187UQGF Twice vekrg8008Aiogud 2024 12:00amOctober 2024 3:20pmApixaban 5 mg nktftfKqdkhjmvkvuf1ADOFZexsp dailyApril 2023 12:00amJanuary 2024 1:33pmMagnesium Oxide 400 mg magnesium gokyqabNyqyjb087YOALXlltc at bedtimeApril 2023 12:00amUnknownBumetanide 1 mg bunkfpPueuvueaftsm6JOEBCgrvwHkgzy 2023 12:00amApril 2023 3:49pmDocusate Sodium 100 mg rtkzcxxJivpntrwxnly904 MGPODaily as neededApril 2023 12:00amJanuary 2024 11:13amPotassium Chloride 20 mEq tablet,ER particles/jevicmacRvcerhkpbvna82VVINIOlwfeOubwo 2023 12:00amApril 2023 1:46pmOxycodone-Acetaminophen 5-325 mg tablet Lspddyvwyzin4BEFKILfhdi 6 hours as needed for gomt6Wxlzm 2023 12:00am March 15, 2024 1:45pmFreeTextSi tablet as needed Orally every 6 hrs; Note: Source Status: TakingDrDane Brambila PRN; Provider: Daily Wiggins ( )Trazodone 50 mg tyikllLarthmunreih11ZITZOtwyf at bedtime as needed June 06, 2023 12:00amApril 2023 3:49pmAtorvastatin 40 mg tablet Ukwgcdcgbllb68HBTKSwmdtEcwmi 2023 12:00amJune 2023 2:09pmOxybutynin Chloride 10 mg tablet extended release 31xgWgygcwjlgpbv36HHTYEroodWddgq 2023 12:00amJuly 2023 9:55amMultivitamin (Daily Multi-Vitamin) tablet Hndwttfgmoyj7GBHIFEhxliJrsxq 2023 12:00amJanuary 2024 11:14am Acetaminophen (Tylenol) 325 mg ngpzryGvahcofgmuut226LBEXAzuvr 6 hours as needed June 06, 2023 12:00amJanuary 2024 11:11amEszopiclone 3 mg tablet Ktmeqxcxxmhy0QQMBNkzjp at bedtimeApr2023 12:00amApril 2023 3:49pm Nystatin 100,000 unit/gram ajlodbUhpbbzufssbq8JCLWLENWGEFAPLfdmf dailyJune 06, 2023 12:00amJanuary 2024 11:14amFreeTextSi application Externally Twice a day; Note: Source Status: Taking; Refills: 3; Provider: Daily Wiggins PMupirocin 2 % ctacyvteEjwufuomymso6GIUOELXVRWYWRCighf dailyApril 2023 12:00amOctober 2023 12:07pmFreeTextSi application Externally Twice a day; Note: Source Status: Taking; Refills: 1; Qty: 60gram; Provider: Daily Myers Levothyroxine (Synthroid) 150 mcg ptxorpBxxqrnlzdzbi964GHSFPQwacq morningApril 2023 12:00amJuly 2023 9:53amAllopurinol 300 mg nonhfxPaanrvxiyjny966 MGPODailyApril 2023 12:00amApril 2023 2:17pmAllopurinol 300 mg tablet Wjsomqyjqael828AKVGXuwrj599Rzpma 2023 2:16pmApril 2023 2:18pm Allopurinol 300 mg gefdmlBwgbrh624SOUNLfizq804Ewrdg 2023 2:18pmUnknown Immunizations Immunization Event Date Not Given Reason 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 Reason(s) Given Vaccine Information Statement (VIS) Detail Administration Location COVID-19 mRNA-1273 (Moderna) April 14, 2020 COVID-19 mRNA-1273 (Moderna)April 30OVID-19 mRNA-1273 (Moderna)May 05OVID-19 mRNA-1273 (Moderna)May 28OVID-19 mRNA-1273 (Moderna)February 18OVID-19 mRNA Bivalent Booster (Moderna)December 24, 2021Fluzone TIV High-Dose 65YR+December 06, 2017Fluzone TIV High-Dose 65YR+December 17, 2022Fluzone QIV High-Dose 65YR+December 22, 2019OJ519AA [facility] CtrFluzone QIV High-Dose 65YR+December 24, 2021 Influenza, trivalentSeptember 2018influenza, unspecified formulation December 17, 2022Trivalent Influenza VaccineOctober 2017Trivalent Influenza VaccineSeptember 2018Trivalent Influenza VaccineOctober 2021Trivalent Influenza VaccineOctober 2019 Medical Equipment Device Date Implanted Device Details ART SURF LEFT 11MM 10-11EF November 05, 2019 Orthopaedic cement, non-medicatedAugust 2019UDI: [id number] Issuing Agency: [employer] Device Id: [id number] Expiration Date: 2023-12-05 Lot Number: [id number] cement, non-medicatedAugust 2019UDI: ()[id number] Issuing Agency: [facility] Device Id: [id number] Expiration Date: 2023-12-05 Lot Number: [id number] knee femur prosthesisAugust 2019UDI: ()[id number] Issuing Agency: [facility] Device Id: [id number] Expiration Date: 2029-03-06 Lot Number: [id number] knee tibia prosthesis, metallicAugust 2019 EDITH: ()[id number] Issuing Agency: [facility] Device Id: [id number] Expiration Date: 2029-06-04 Lot Number: [id number] patella prosthesisAugust 2019UDI: ()[id number] Issuing Agency: [facility] Device Id: [id number] Expiration Date: 2027-09-04 Lot Number: [id number] Procedures Procedure Date Performed Status CT lumbar [...] fern Urine Culture December 12, 2024 completed Urine Culture December 27, [address] facial bones wo con October 05, [...] 7:55pm Se ptember 2024 11:06am See comment naTroponin I High SensitivityOctober 2024 9:17pmOctober 2024 9:17pm 131.3 pg/mLAbove upper panic limits4.0-76.1RESULTS CALLED TO JONATHAN Prince NP @BY [facility] Noel, [facility] 2156CUT-OFF POINTS HAVE BEEN ESTABLISHED BASED ON THE FOURTHUNIVERS DEFINITION OF MYOCARDIAL INFARCTION. THE UPPERREFERENCE LIMIT (URL) OF TROPONIN, DEFINED THE 99THPERCENTILE OF cTnI DISTRIBUTION IN A REFERENCE POPULATION,HAS BEEN CONFIRMED THE DECISION THRESHOLD FOR MIDIAGNOSIS.99TH PERCENTILE = 76.2 PG/MLNOTE: HIGH-SENSITIVITY TROPONIN ASSAY IS NOT INTENDED TO BEUSED IN ISOLATION BUT SHOULD BE INTERPRETED IN CONJUNCTIONWITH OTHER DIAGNOSTIC AND CLINICAL INFORMATION.Anion GapOctober 2024 9:17pm December 27, 2024 9:17pm14.3Basophils # (Auto)December 27, 2024 9:17pmOctober 2024 9:17pm0.1 10 3/uL0.0-0.1Urine Culture ReflexedOctober 2024 9:51pmOctober 2024 9:51pmYES-FRMCUrine Microscopic ReviewOct2024 9:51pmYESUrine ColorAugust 2024 7:55pmSeptember 2024 11:06am lightyellowAlbumin/Globulin RatioOct2024 9:17pmOctober 2024 9:17pm0.6Basophils (%) (Auto)December 27, 2024 9:17pmOctober 2024 9:17pm 0.9 %0.2-2.0Urine Other CastsOctober 2024 9:51pmOctober 2024 9:51pm NONE SEEN #/LPFNONE SEENUrine BilirubinOctober 2024 9:51pmNEGATIVENEGATIVE Urine AppearanceAugust 2024 7:55pmSeptember 2024 11:06amclearAlbumin December 27, 2024 9:17pmOctober 2024 9:17pm2.7 g/dLBelow low normal 3.4-5.0Eosinophils # (Auto)December 27, 2024 9:17pmOctober 2024 9:17pm0.2 10 3/uL0.0-0.7Urine Other CrystalsOct2024 9:51pmOctober 2024 9:51pmNone Seen #/HPFNone SeenUrine Occult BloodOctober 2024 9:51pm NEGATIVENEGATIVEUrine Glucose (UA)October 06, 2024 7:55pmSeptember 2024 11:06amNormalAlkaline PhosphataseDecember 27, 2024 9:17pmOctober 2024 9:16qd664 U/LAbove high yswpgt18-958Thgndyjitrx (%) (Auto)December 27, 2024 9:17pmOctober 2024 9:17pm2.8 %0.9-7.0Urine BacteriaOct2024 9:51pmOctober 2024 9:51pmSMALL #/HPFAbnormal (applies to non-numeric results)NONE SEENUrine AppearanceOctober 2024 9:51pmSL CLOUDYCLEARUrine BilirubinAugus2024 7:55pmSeptember 2024 11:06amNegAlanine Aminotransferase (ALT/SGPT)December 27, 2024 9:17pmOctober 2024 9:17pm30 U/M27-99UgnpyxmztmBdgalhj 2024 9:17pmOctober 2024 9:17pm27.1 %Below low qiepuv49.0-54.0Urine MucusOctober 2024 9:51pmOctober 2024 9:51pm NONE SEENNONE SEENUrine ColorOct2024 9:51pmLT. YELLOWYELLOWUrine KetonesAugust 2024 7:55pmSeptember 2024 11:06amNegAspartate Amino Transf (AST/SGOT)December 27, 2024 9:17pmOctober 2024 9:17pm42 U/LAbove high oyqwnf11-17RwaubkfsjaQeojalx 23rd, 2025 9:17pmOctober 2024 9:17pm8.7 g/dLBelow low jyiblu98.0-18.0Urine RBCOctober 2024 9:51pmOctober 2024 9:02zo1-3 #/HPF0-2Urine Glucose (UA)December 27, 2024 9:51pmNEGATIVE mg/dL NEGATIVEUrine Specific GravityAugust 2024 7:55pmSeptember 2024 11:06am1.018BUN/Creatinine RatioOct2024 9:17pmOctober 2024 9:17pm18.0Immature Granulocyte # (Auto)December 27, 2024 9:17pmOctober 2024 9:17pm0.04 10 3/uLAbove high normal0.00-0.03Urine Squamous Epithelial Cells December 27, 2024 9:51pmOctober 2024 9:51pmNONE SEEN #/LPFNONE/RAREUrine KetonesOct2024 9:51pmNEGATIVE mg/dLNEGATIVEUrine Occult BloodAugust 2024 7:55pmSeptember 2024 11:06amSee commentnot doneBlood Urea NitrogenOct2024 9:17pmOctober 2024 9:17pm24.0 mg/dLAbove high normal7.0-18.0Immature Granulocyte % (Auto)December 27, 2024 9:17pmOctober 2024 9:17pm0.5 %0.0-0.5Urine WBCOctober 2024 9:51pmOctober 2024 9:05uy32-00 #/HPFAbnormal (applies to non-numeric results)NONE SEENUrine Leukocyte EsteraseOctober 2024 9:51pmSMALLAbnormal (applies to non-numeric results)NEGATIVEUrine pHAugust 2024 7:55pmSeptember 2024 11:06am5.5 Calcium LevelOctober 2024 9:17pmOctober 2024 9:17pm8.9 mg/dL8.5-10.1 Lymphocytes # (Auto)December 27, 2024 9:17pmOctober 2024 9:17pm1.2 10 3/uL1.2-3.8Urine YeastOctober 2024 9:51pmOctober 2024 9:51pmSEEN Abnormal (applies to non-numeric results)NONE SEENMany budding yeastModerate HyphaeUrine NitriteOct2024 9:51pmNEGATIVENEGATIVEUrine ProteinAugust 2024 7:55pmSeptember 2024 11:06amTraceChloride LevelOct2024 9:17pmOctober 2024 9:17pm97 mmol/LBelow low ptpita59-539Natshxodlxf (%) (Auto)December 27, 2024 9:17pmOctober 2024 9:17pm14.4 %Below low nwrahd33.5-60.0Urine pHOctober 2024 9:51pm5.55.0-9.0Urine Urobilinogen October 06, 2024 7:55pmSeptember 2024 11:06amNormalCarbon Dioxide Level December 27, 2024 9:17pmOctober 2024 9:17pm24.8 mmol/L21.0-32.0Mean Corpuscular HemoglobinOctober 2024 9:17pmOctober 2024 9:17pm28.9 pg 25.9-34.0Urine ProteinOctober 2024 9:51pmNEGATIVE mg/dLNEG/TRACEUrine NitriteAugust 2024 7:55pmSeptember 2024 11:06amPositiveCreatinine December 27, 2024 9:17pmOctober 2024 9:17pm1.33 mg/dLAbove high normal 0.70-1.30Mean Corpuscular Hemoglobin ConcentOct2024 9:17pmOctober 2024 9:17pm32.1 g/dL29.9-35.2Urine Specific GravityOct2024 9:51pm<=1.005Abnormal (applies to non-numeric results)1.005-1.025Urine Leukocyte EsteraseAugust 2024 7:55pmSeptember 2024 11:06am4+Estimated GFR ()December 27, 2024 9:17pmOctober 2024 9:17pm>60>=60 mL/min/1.73m 2Mean Corpuscular VolumeOct2024 9:17pmOctober 2024 9:17pm90.0 fL80.0-94.0Urine UrobilinogenOctober 2024 9:51pm0.2 EU/dL 0.2-1.0Estimated GFR (Non- AmericanOct2024 9:17pmOctober 2024 9:80cb33Bispc low normal>=60 mL/min/1.73m 2Monocytes # (Auto)December 27, 2024 9:17pmOctober 2024 9:17pm0.7 10 3/uL0.3-0.8GlobulinOct2024 9:17pmOctober 2024 9:17pm4.2 g/dLMonocytes (%) (Auto)December 27, 2024 9:17pmOctober 2024 9:17pm8.6 %1.7-12.0Glucose LevelOct2024 9:17pmOctober 2024 9:17pm92 mg/rZ71-041Tykb Platelet VolumeOct2024 9:17pmOctober 2024 9:17pm10.6 fL9.5-13.5Potassium LevelOctober 2024 9:17pmOctober 2024 9:17pm5.1 mmol/L3.5-5.1Neutrophils # (Auto)December 27, 2024 9:17pmOctober 2024 9:17pm5.9 10 3/uL1.4-6.5Sodium LevelOct2024 9:17pmOctober 2024 9:25xf039 mmol/LBelow low ymyfkx049-278 Neutrophils (%) (Auto)December 27, 2024 9:17pmOctober 2024 9:17pm72.8 % 43.0-75.0Total BilirubinOctober 2024 9:17pmOctober 2024 9:17pm0.5 mg/dL0.2-1.0Platelet CountOct2024 9:17pmOctober 2024 9:91bn160 10 3/wE322-922Iieds ProteinOctober 2024 9:17pmOctober 2024 9:17pm6.9 g/dL6.4-8.2Red Blood CountOctober 2024 9:17pmOctober 2024 9:17pm3.01 10 6/uLBelow low normal4.70-6.10Red Cell Distribution WidthOctober 2024 9:17pmOctober 2024 9:17pm16.9 %Above high jaxnmo07.0-15.0Corrected White Blood CountOctober 2024 9:17pmOctober 2024 9:17pm8.1 10 3/uL4.0-11.0 Corrected White Blood CountAugust 2024 6:57amAugust 2024 7:13am6.0 10*3/uL4.1-10.5F[facility] [id number] [address] [place] [address] 38[address]Fobesgbud White Blood CountOctober 2024 11:42amOctober 2024 12:26pm3.6 10*3/uLBelow low normal4.1-10.5F[facility] [id number] [address] [facility] 23822Kuoapkucmhj WBC CountAugust 2024 7:30pmAugust 2024 7:55pm5.7 10*3/uL4.1-10.5F[facility] [id number] [address] [facility] 26821Qivyosqllhj WBC CountOctober 2024 11:42amOctober 2024 12:26pm3.6 10*3/uLBelow low normal4.1-10.5FSelect [facility] [id number] [address] [facility] [address]Sps Blood CountAugust 2024 6:57amAugust 2024 7:13am 2.63 10*6/uLBelow low normal3.90-5.60[facility] [id number] [address] [facility] [address]1032Goj Blood CountOctober 2024 11:42amOctober 2024 12:26pm3.00 10*6/uLBelow low normal3.90-5.60[facility] [id number] [address] [place] [address] 71768YfmtjqyyfsFueisr 2024 6:57amAugust 2024 7:13am8.0 g/dLBelow low spmlfe69.0-17.0[facility] [id number] [address] [place] [address] 17807RvehhgyaulQjjwgax 2024 11:42amOctober 2024 12:26pm 8.6 g/dLBelow low hnoqyz01.0-17.0[facility] [id number] [address] [place] [address] 31969GfatkdabthJifqwd 2024 6:57amAugust 2024 7:13am24.1 % Below low dyczxu64.8-50.0[facility] [id number] [address] [place] [address] 32893LnpckrpgseUigulns 2024 11:42amOctober 2024 12:26pm 26.3 %Below low .8-50.0[facility] [id number] [address] [facility] 83151Ordk Corpuscular VolumeAugust 2024 6:57amAugust 2024 7:13am91.5 fL83.5-101[facility] [id number] [address] [facility] [address]Jrix Corpuscular VolumeOctober 2024 11:42amOctober 2024 12:26pm87.8 fL83.5-101[facility] [id number] [address] [facility] 31507Cknt Corpuscular HemoglobinAugust 2024 6:57amAugust 2024 7:13am30.4 pg27.5-35.2FSelect [facility] [id number] [address] [place] [address] 46807Ltkd Corpuscular HemoglobinOctober 2024 11:42amOctober 2024 12:26pm28.6 pg27.5-35.2FSelect [facility] [id number] [address] [place] [address] 74372Izmo Corpuscular Hemoglobin ConcentAugust 2024 6:57am October 08, 2024 7:13am33.2 g/dL32.5-35.6F[facility] [id number] [address] [place] [address] 28923Svsj Corpuscular Hemoglobin ConcentOctober 2024 11:42am December 18, 2024 12:26pm32.6 g/dL32.5-35.6FSelect [facility] [id number] [address] [place] [address] 36062Myd Cell Distribution WidthAugust 2024 6:57amAugust 2024 7:13am17.7 %Above high yxhdgv17.0-14.8[facility] [id number] [address] [place] [address] 26370Lds Cell Distribution WidthOctober 2024 11:42amOctober 2024 12:26pm18.1 %Above high juvmmc50.0-14.8[facility] [id number] [address] [facility] [address]60[address]Hceqjgas CountAugust 2024 6:57amAugust 2024 7:34ed918 10*3/nP338-172KpublpyrcCleveland Clinic Foundation Ctr [id number] [address] [facility] 25771Njqheooh CountOctober 2024 11:42amOctober 2024 12:60cd863 10*3/nH428-034WbdbpkreoCleveland Clinic Foundation Ctr [id number] [address] [facility] [address]Wnyx Platelet VolumeAugust 2024 6:57amAugust 2024 7:13am7.5 fL6.6-10.1FSelect [facility] [id number] [address] [facility] 74997Kxyk Platelet VolumeOctober 2024 11:42amOctober 2024 12:26pm7.4 fL6.6-10.1FSelect [facility] [id number] [address] [facility] 21514Hpngehqy Distribution WidthAugust 2024 7:30pmAugust 2024 7:55pm19.41 %0.00-20.00[facility] [id number] [address] [place] [address] 15049Vzdlljuz Distribution WidthOctober 2024 12:25pmOctober 2024 12:48pm18.74 %0.00-20.00[facility] [id number] [address] [facility] 55357Qvedfvgoaxe (%) (Auto)October 05, 2024 7:30pmAugust 2024 7:55pm65.2 %.[facility] [id number] [address] [facility] 58464Qnllvmpgnew (%) (Auto)December 18, 2024 11:42amOctober 2024 12:26pm65.6 %.[facility] [id number] [address] [facility] 14258Qfxmwfzxfnn (%) (Auto)October 05, 2024 7:30pmAugust 2024 7:55pm19.8 %.[facility] [id number] [address] [facility] 98978Fxzzopnxzfk (%) (Auto)December 18, 2024 11:42amOctober 2024 12:26pm18.6 %.[facility] [id number] [address] [facility] 26452Mwkowniyq (%) (Auto)October 05, 2024 7:30pmAugust 2024 7:55pm9.9 %.[facility] [id number] [address] [facility] 41869Zypxehlbx (%) (Auto)December 18, 2024 11:42amOctober 2024 12:26pm8.6 %.[facility] [id number] [address] [facility] 44191Kgcegjrvhjt (%) (Auto)October 05, 2024 7:30pmAugust 2024 7:55pm4.7 %.[facility] [id number] [address] [facility] 16512Satgoqdllru (%) (Auto)December 18, 2024 11:42amOctober 2024 12:26pm6.5 %.[facility] [id number] [address] [facility] 45503Xqutcewmg (%) (Auto)October 05, 2024 7:30pmAugust 2024 7:55pm0.4 %.[facility] [id number] [address] [facility] 32426Ahdnevkvh (%) (Auto)December 18, 2024 11:42amOctober 2024 12:26pm0.7 %.[facility] [id number] [address] [facility] 89867Dsdgyyjrs RBC Relative Count (auto)October 05, 2024 7:30pm October 05, 2024 7:55pm0.2 /100{WBC}0-0.5F[facility] [id number] [address] [facility] 88178Yegeuvmkg RBC Relative Count (auto)December 18, 2024 11:42am December 18, 2024 12:26pm0.0 /100{WBC}0-0.5F[facility] [id number] [address] [facility] 87095Qkdjszyhxus # (Auto)October 05, 2024 7:30pmAugust 2024 7:55pm3.7 10*3/uL1.8-7.7F[facility] [id number] [address] [facility] 59365Okosmanjgna # (Auto)December 18, 2024 11:42amOctober 2024 12:26pm2.4 10*3/uL1.8-7.7F[facility] [id number] [address] [facility] 84472Bwbhxcmzwov # (Auto)October 05, 2024 7:30pmAugust 2024 7:55pm1.1 10*3/uL1.00-4.8[facility] [id number] [address] [facility] 30494Lmfzlycndja # (Auto)December 18, 2024 11:42amOctober 2024 12:26pm0.7 10*3/uLBelow low normal1.00-4.8[facility] [id number] [address] [facility] 18974Ikkijtani # (Auto)October 05, 2024 7:30pmAugust 2024 7:55pm0.6 10*3/uL0.0-0.8[facility] [id number] [address] [facility] 544[address]Lhhiicnvz # (Auto)December 18, 2024 11:42amOctober 2024 12:26pm0.3 10*3/uL0.0-0.8[facility] [id number] [address] [facility] 45242Mvjxvcfoshp # (Auto)October 05, 2024 7:30pmAugust 2024 7:55pm0.3 10*3/uL0.0-0.45[facility] [id number] [address] [facility] 487[address]Sqptetpiqos # (Auto)December 18, 2024 11:42amOctober 2024 12:26pm0.2 10*3/uL0.0-0.45[facility] [id number] [address] [facility] 83905Enansllej # (Auto)October 05, 2024 7:30pmAugust 2024 7:55pm0.0 10*3/uL0.0-0.2F[facility] [id number] [address] [facility] 23172Otxizijse # (Auto)December 18, 2024 11:42amOctober 2024 12:26pm0.0 10*3/uL0.0-0.2F[facility] [id number] [address] [facility] 17052Pkevmkduwua TimeAugust 2024 7:30pmAugust 2024 8:26pm 26.6 sAbove high normal9.0-12.9A hematocrit value greater than 55% may lead to inaccurate results in coagulation testing. Patientshaving hematocrit values >55% require a special collection tube for coagulation studies. Please contact the laboratory at [phone] for redraw instructions.[facility] [id number] [address] [facility] [address]Evkvhppxgne TimeOctober 2024 5:39amOctober 2024 6:38am27.3 sAbove high normal9.0-12.9A hematocrit value greater than 55% may lead to inaccurate results in coagulation testing. Patientshaving hematocrit values >55% require a special collection tube for coagulation studies. Please c ontact the laboratory at [phone] for redraw instructions.[facility] [id number] [address] [facility] [address]Cfjqqvdkz Time International RatioAugust 2024 7:30pmAugust 2024 8:26pm2.4INR [...] patients with mechanical heart valves: 3 - 4.5F[facility] [id number] [address] [facility] [address]Ufzhqvaoy Time International RatioOctober 2024 5:39am December 13, 2024 6:38am2.5INR Therapeutic Range A) Pre- and Peroperative OAT started two weeks before surgery. NOT HIP SURGERY: 1.5 - 2.5 HIP SURGERY: 2 - 3B) Primary and secondary prevention of venous THROMBOSIS: 2 - 3C) Active venous thrombosis, pulmonary embolismand prevention of recurrent venous thrombosis: 2 - 3D) Prevention of arterial thromboembolismincluding patients with mechanical heart valves: 3 - 4.5F[facility] [id number] [address] [place] [address] 30570Mmqzekqta Partial Thromboplast TimeAugust 2024 7:30pm October 05, 2024 8:26pm41.0 sAbove high .1-36.5A hematocrit value greater than 55% may lead to inaccurate results in coagulation testing. Patients having hematocrit values >55% require a special collection tube for coagulation studies. Please contact the laboratory at [phone] for redraw instructions. [facility] [id number] [address] [facility] [address]Onwydzwds Partial Thromboplast TimeOctober 2024 5:39am December 13, 2024 6:38am38.9 sAbove high ylcqao57.1-36.5A hematocrit value greater than 55% may lead to inaccurate results in coagulation testing. Patients having hematocrit values >55% require a special collection tube for coagulation studies. Please contact the laboratory at [phone] for redraw instructions. [facility] [id number] [address] [facility] [address]Ueyzh ColorAugust 2024 6:40pmAugust 2024 6:51pmYellow YellowCleveland Clinic Foundation Ctr [id number] [address] [place] [address] 29215Dywfn ColorOctober 2024 1:19pmOctober 2024 1:38pm ColorlessYellowCleveland Clinic Foundation Ctr [id number] [address] [place] [address] 05584Rgzkb AppearanceAugust 2024 6:40pmAugust 2024 6:51pm CloudyAbnormal (applies to non-numeric results)ClearCleveland Clinic Foundation Ctr [id number] [address] [facility] [address]Kerhb AppearanceOctober 2024 1:19pmOctober 2024 1:38pmClearClearCleveland Clinic Foundation Ctr [id number] [address] [facility] [address]Kixyl Specific GravityAugust 2024 6:40pmAugust 2024 6:[id number] [id number] [address] [facility] [address]Yyryf Specific GravityOctober 2024 1:19pmOctober 2024 1:[id number] [id number] [address] [facility] [address]Rmciv pHAugust 2024 6:40pmAugust 2024 6:51pm5.5 5.0-9.0[facility] [id number] [address] [facility] [address]Hoczw pHOctober 2024 1:19pmOctober 2024 1:38pm5.5 5.0-9.0[facility] [id number] [address] [place] [address]Keadn Leukocyte EsteraseAugust 2024 6:40pmAugust 2024 6:51pm3+Above high normalNegativeCleveland Clinic Foundation Ctr [id number] [address] [facility] [address]Zgzgv Leukocyte EsteraseOctober 2024 1:19pmOctober 2024 1:38pm2+Above high normalNegativeCleveland Clinic Foundation Ctr [id number] [address] [place] [address]Rarqs NitriteAugust 2024 6:40pmAugust 2024 6:51pm NegativeNegativeCleveland Clinic Foundation Ctr [id number] [address] [place] [address] 93550Bqngh NitriteOctober 2024 1:19pmOctober 2024 1:38pm NegativeNegativeCleveland Clinic Foundation [facility] [id number] [address] [place] [address] 22420Aatvv ProteinAugust 2024 6:40pmAugust 2024 6:82er657 mg/dLAbove high normalNegativeCleveland Clinic Foundation [facility] [id number] [address] [facility] 66608Xnmnl ProteinOctober 2024 1:19pmOctober 2024 1:38pm Negative mg/dLNegativeFirChildren's Hospital of [facility] [id number] [address] [facility] 27787Egffy Glucose (UA)October 07, 2024 6:40pmAugust 2024 6:51pmNormal mg/dLNormalFirChildren's Hospital of Columbus [facility] [id number] [address] [facility] 05733Isiwg Glucose (UA)December 12, 2024 1:19pmOctober 2024 1:38pmNormal mg/dLNormalCleveland Clinic Foundation [facility] [id number] [address] [facility] 05405Ihfnk KetonesAugust 2024 6:40pmAugust 2024 6:51pm TraceAbove high normalNegativeCleveland Clinic [facility] [id number] [address] [facility] 79419Airqo KetonesOctober 2024 1:19pmOctober 2024 1:38pm NegativeNegativeFirChildren's Hospital of [facility] [id number] [address] [facility] 12416Owohx UrobilinogenAugust 2024 6:40pmAugust 2024 6:51pmNormal mg/dLNormalFirChildren's Hospital of Columbus [facility] [id number] [address] [facility] 47914Dndrp UrobilinogenOctober 2024 1:19pmOctober 2024 1:38pmNormal mg/dLNormalFirChildren's Hospital of Columbus [facility] [id number] [address] [facility] 96116Uqkzv BilirubinAugust 2024 6:40pmAugust 2024 6:51pm NegativeNegativeFirelandCarteret Health Care [facility] [id number] [address] [facility] 23526Zkemn BilirubinOctober 2024 1:19pmOctober 2024 1:38pm NegativeNegativeFirChildren's Hospital of Columbus [facility] [id number] [address] [facility] 41680Krcan Occult BloodAugust 2024 6:40pmAugust 2024 6:51pm3+Above high normalNegProMedica [facility] [id number] [address] [facility] 39381Xilmt Occult BloodOctober 2024 1:19pmOctober 2024 1:38pm1+Above high normalNegProMedica Bay Park Hospital [facility] [id number] [address] [facility] 54105Exeap RBCAugust 2024 6:40pmAugust 2024 7:05pm Innumerable [HPF]Above high normal0-[address] [place] [address] Ctr [id number] [address] [facility] 43510Vzwhm RBCOctober 2024 1:19pmOctober 2024 1:90ob0-1 [HPF]0-4FSelect [facility] [id number] [address] [facility] 63180Odxnw WBCAugust 2024 6:40pmAugust 2024 7:05pm Innumerable [HPF]Above high normal0-[address] [place] [address] Ctr [id number] [address] [facility] 15887Uzbkj WBCOctober 2024 1:19pmOctober 2024 1:01vr45-40 [HPF]Above high normal[address] Ctr [id number] [address] [facility] 62591Tnbhl Squamous Epithelial CellsAugust 2024 6:40pmAugust 2024 7:05pmN/[facility] [id number] [address] [facility] 71129Wdtjm Squamous Epithelial CellsOctober 2024 1:19pmOctober 2024 1:39pmN/[facility] [id number] [address] [facility] 76689Nwwaj BacteriaAugust 2024 6:40pmAugust 2024 7:05pm Rare [HPF]None [facility] [id number] [address] [facility] 39779Lbims BacteriaOctober 2024 1:19pmOctober 2024 1:39pm Rare [HPF]None SeenCleveland Clinic Foundation Ctr [id number] [address] [facility] 68947Khytc Hyaline CastsAugust 2024 6:40pmAugust 2024 7:00so5-4 [LPF]0-8[facility] [id number] [address] [facility] 36904Urjqa Hyaline CastsOctober 2024 1:19pmOctober 2024 1:88sp6-3 [LPF]0-8[facility] [id number] [address] [facility] 51048Audlt MucusAugust 2024 6:40pmAugust 2024 7:05pmRare [LPF][facility] [id number] [address] [facility] 10113Xigvr MucusOctober 2024 1:19pmOctober 2024 1:39pmRare [LPF][facility] [id number] [address] [facility] 65621Emriwkz LevelAugust 2024 6:57amAugust 2024 7:30am95 mg/mK23-816NNN recommended reference rangeRandom Glucose Reference Range is dependent on time and content of last meal. Glucose of more than 200 mg/dL in a nonstressed, ambulatory subject supports the diagnosisof Diabetes Mellitus. [facility] [id number] [address] [facility] 55311Ilxvkvv LevelOctober 2024 8:13amOctober 2024 9:05am 84 mg/nV48-242HIW recommended reference rangeRandom Glucose Reference Range is dependent on time and content of last meal. Glucose of more than 200 mg/dL in a nonstressed, ambulatory subject supports the diagnosisof Diabetes Mellitus. [facility] [id number] [address] [facility] 56554Ekioh Urea NitrogenAugust 2024 6:57amAugust 2024 7:30am20 mg/dL7[facility] [id number] [address] [place] [address] 46919Alryb Urea NitrogenOctober 2024 8:13amOctober 2024 9:05am20 mg/dL7-25[facility] [id number] [address] [facility] 60645LvtclvkbnyFedesg 2024 6:57amAugust 2024 7:30am1.28 mg/dL0.70-1.30[facility] [id number] [address] [facility] 54179WordipejbtUiljets 2024 8:13amOctober 2024 9:05am 1.20 mg/dL0.70-1.30[facility] [id number] [address] [facility] 31930Hdszmqhhk GFR (CKD-EPI)October 08, 2024 6:57amAugust 2024 7:30am55.532 mL/MinCleveland Clinic Foundation Ctr [id number] [address] [place] [id number] GFR (CKD-EPI)December 17, 2024 8:13amOctober 2024 9:05am> 60.0 mL/MinCleveland Clinic Foundation Ctr [id number] [address] [place] [id number] LevelAugust 2024 6:57amAugust 2024 7:26xy018 mmol/LBelow low -907JxjgwsdsuCleveland Clinic Foundation Ctr [id number] [address] [facility] 72437Vpmvwb LevelOctober 2024 8:13amOctober 2024 9:05am 135 mmol/LBelow low -134NvfyalavtCleveland Clinic Foundation Ctr [id number] [address] [facility] 50912Aidtishvj LevelAugust 2024 6:57amAugust 2024 7:30am 4.1 mmol/L3.5-5.1FSelect [facility] [id number] [address] [facility] 10235Bautwycff LevelOctober 2024 8:13amOctober 2024 9:05am3.8 mmol/L3.5-5.1FSelect [facility] [id number] [address] [facility] 01630Ouhwbymu LevelAugust 2024 6:57amAugust 2024 7:30am98 mmol/W17-342QhfmdjdqyCleveland Clinic Foundation C[facility] [id number] [address] [facility] 73928Lhlxdkkb LevelOctober 2024 8:13amOctober 2024 9:96qi674 mmol/W37-000VgxznivzmCleveland Clinic Foundation Ctr [id number] [address] [facility] 92290Gvntgh Dioxide LevelAugust 2024 6:57amAugust 2024 7:30am27.5 mmol/L21.0-31.0[facility] [id number] [address] [facility] 07703Nnxlbv Dioxide LevelOctober 2024 8:13amOctober 2024 9:05am26.3 mmol/L21.0-31.0[facility] [id number] [address] [place] [address] 15073Lzseo GapAugust 2024 6:57amAugust 2024 7:30am9.6 mEq/L6.0-15.0[facility] [id number] [address] [place] [address] 49656Rtske GapOctober 2024 8:13amOctober 2024 9:05am9.5 mEq/L6.0-15.0[facility] [id number] [address] [place] [address] 55668Dzdsdzu LevelAugust 2024 6:57amAugust 2024 7:30am8.6 mg/dL8.6-10.3FSelect [facility] [id number] [address] [facility] 58806Kzdcsnt LevelOctober 2024 8:13amOctober 2024 9:05am 8.4 mg/dLBelow low normal8.6-10.3FSelect [facility] [id number] [address] [place] [address] 31003Dzvvvadao LevelAugust 2024 6:57amAugust 2024 7:30am 2.1 mg/dL1.9-2.7FSelect [facility] [id number] [address] [place] [address] 27212Xprsdoqik LevelOctober 2024 5:39amOctober 2024 6:37am 1.8 mg/dLBelow low normal1.9-2.7FSelect [facility] [id number] [address] [place] [address] 73369Jsmct ProteinAugust 2024 7:30pmAugust 2024 8:13pm6.7 g/dL6.4-8.9[facility] [id number] [address] [place] [address] 83194Vtect ProteinOctober 2024 6:23amOctober 2024 7:46am 6.6 g/dL6.4-8.9[facility] [id number] [address] [place] [address] 45135OciyaaiZjtepr 2024 7:30pmAugust 2024 8:13pm3.5 g/dL 3.5-5.7FSelect [facility] [id number] [address] [place] [address] 64510JyqlfzrJuavdok 2024 6:23amOctober 2024 7:46am3.4 g/dLBelow low normal3.5-5.7FSelect [facility] [id number] [address] [place] [address] 74233HpolfcplUvfdhd 2024 7:30pmAugust 2024 8:13pm3.2 g/dL [facility] [id number] [address] [place] [address] 48660PmyreaiwPqwcyrc 2024 6:23amOctober 2024 7:46am3.2 g/dLCleveland Clinic Foundation Ctr [id number] [address] [place] [address] 49725Fowgita/Globulin RatioAugust 2024 7:30pmAugust 2024 8:13pm1.1FSelect [facility] [id number] [address] [place] [address] 68063Iqlogso/Globulin RatioOctober 2024 6:23amOctober 2024 7:46am1.1FSelect [facility] [id number] [address] [place] [address] 79537Pgazs BilirubinAugust 2024 7:30pmAugust 2024 8:13pm 0.6 mg/dL0.3-1.0[facility] [id number] [address] [facility] 06799Ijmls BilirubinOctober 2024 6:23amOctober 2024 7:46am0.8 mg/dL0.3-1.0[facility] [id number] [address] [facility] 93691Lrinzvmnk Amino Transf (AST/SGOT)October 05, 2024 7:30pmAugust 2024 8:13pm16 U/P04-18MvpaeguepCleveland Clinic Foundation Ctr [id number] [address] [place] [address] 60810Jtwqyelzv Amino Transf (AST/SGOT)December 15, 2024 6:23am December 15, 2024 7:46am23 U/S96-70GquqzjxsvCleveland Clinic Foundation Ctr [id number] [address] [place] [address] 52431Lajvsng Aminotransferase (ALT/SGPT)October 05, 2024 7:30pm October 05, 2024 8:13pm6 U/LBelow low normal7-52[facility] [id number] [address] [place] [address] 13428Dsiziva Aminotransferase (ALT/SGPT)December 15, 2024 6:23am December 15, 2024 7:46am10 U/L7-52[facility] [id number] [address] [place] [address] 25952Tefuenlm PhosphataseAugust 2024 7:30pmAugust 2024 8:67vr844 U/LAbove high ygrdij84-565GnmivmylxCleveland Clinic Foundation Ctr [id number] [address] [place] [address] 02837Parqpdzs PhosphataseOctober 2024 6:23amOctober 2024 7:46am99 U/I84-876AtlrsxwguCleveland Clinic Foundation Ctr [id number] [address] [place] [address] 68441Fsfb LevelOctober 2024 5:39amOctober 2024 5:38pm11 ug/dLBelow low vhdola54-569XcfnvnzisCleveland Clinic Foundation Ctr [id number] [address] [facility] 12268Zpvcg Iron Binding CapacityOctober 2024 5:39amOctober 2024 5:56uc450 ug/dLBelow low ehgvpm145-613CdgqdowpaCleveland Clinic Foundation Ctr [id number] [address] [facility] 19642Lzsa SaturationOctober 2024 5:39amOctober 2024 5:38pm 5.4 %Below low sxkuru15-23KaztcsmtnCleveland Clinic Foundation Ctr [id number] [address] [facility] 17874TfehyowofqqPmlzvqr 2024 5:39amOctober 2024 5:32iv676 mg/dLBelow low hafjre648-502DrvskeexiCleveland Clinic Foundation Ctr [id number] [address] [place] [address] 67666JkbyrfjwIghqrrv 2024 5:39amOctober 2024 6:80wi554.5 ng/mLAbove high wrwiez52.9-336.2FSelect [facility] [id number] [address] [place] [address] 96802Uaodqkyf I High SensitivityOctober 2024 5:39amOctober 2024 6:44am10 ng/L0-20The Troponin units of report have been changed to meet the Chest Pain Accreditation requirement, element EC5.M1l2. Troponin units are changed from pg/ml to ng/L. Also, the decimal is removed and results are in whole numbers.[facility] [id number] [address] [facility] 78079W-Epcj Natriuretic PeptideOctober 2024 12:25pmOctober 2024 3:17ua419.0 pg/mLAbove high normal5-100[facility] [id number] [address] [place] [address] 97407Rotsedaiemj LevelOctober 2024 5:39amOctober 2024 6:37am89 mg/dLBelow low -611Ofns less than 200 mg/dl low riskChol 201- 239 mg/dl borderline riskChol 240 mg/dl and greater high riskCleveland Clinic Foundation Ctr [id number] [address] [place] [address] 17724OMC CholesterolOctober 2024 5:39amOctober 2024 6:37am 43 mg/uK81-97LFY CHOL ATP-III CLASSIFICATION Cardiovascular RiskHDL > or equal to 60 mg/dL LOWHDL < 40 mg/dL HIGHCleveland Clinic Foundation Ctr [id number] [address] [facility] 54792Azgyshzulfhlf LevelOctober 2024 5:39amOctober 2024 6:37am57 mg/dL0-149TRIG ATP III CLASSIFICATIONTRIG less than 150 mg/dL NormalTRIG 150-199 mg/dL Borderline highTRIG 200-500 mg/dL High TRIG greater than 500 mg/dL Very highStandard traceable to the Center for Disease Conrtrol and Prevention (CDC) test method.[facility] [id number] [address] [facility] 33569TOV Cholesterol, CalculatedOctober 2024 5:39amOctober 2024 6:37am35 mg/dL0-100LDL ATP III CLASSIFICATIONLDL less than 100 mg/dL OptimalLDL 100-129 mg/dL Near or above kcahskxFQU874-703 mg/dL Borderline highLDL 160-189 mg/dL HighLDL greater than 189 mg/dL Very highCleveland Clinic Foundation Ctr [id number] [address] [facility] 94505XRMS CholesterolOctober 2024 5:39amOctober 2024 6:37am11 mg/dLCleveland Clinic Foundation Ctr [id number] [address] [facility] 57157Kuzhdozpfox/HDL RatioOctober 2024 5:39amOctober 2024 6:37am2.1<5.0[facility] [id number] [address] [facility] 64398Urwdgkl B12 LevelOctober 2024 5:39amOctober 2024 6:36tx945 pg/jM126-925PxjvqgkjnCleveland Clinic Foundation Ctr [id number] [address] [facility] 42805PsrqkkNqofacu 2024 5:39amOctober 2024 6:03pm9.1 ng/mL >5.9Folate reference range: >5.9 ng/mlThe WHO technical consultation on folate and vitamin r11eipurlsteunb has determined that folate concentrations lessthan 4 ng/ml are considered deficient.[facility] [id number] [address] [facility] 36816Gzovhbzi Creatinine Clearance (ChemAugust 2024 6:57am October 08, 2024 7:30am40.92[facility] [id number] [address] [facility] 77283Mbdkixrz Creatinine Clearance (ChemOctober 2024 8:13am December 17, 2024 9:05am47.08[facility] [id number] [address] [facility] 73433Dmijpezrth K7gVpkmcep 2024 5:39amOctober 2024 1:30pm 5.5 %4.3-5.6Increased risk for diabetes: 5.7 - 6.4diabetes: >6.4glycemic control for adults with diabetes: <7.0[facility] [id number] [address] [facility] 34240Pyvmedkvn Average GlucoseDecember 13, 2024 5:39amOctober 2024 1:87jt542 mg/dLCleveland Clinic Foundation Ctr [id number] [address] [facility] 43082Ljzscag GlucoseAugust 2024 11:03pmAugust 2024 11:04pm 102 mg/dLRandom Glucose Reference Range is dependent on time and content of last meal. Glucose of more than 200 mg/dL in a nonstressed, ambulatory subject supports the diagnosis of Diabetes Mellitus.Point of Care testingBedside Glucose December 17, 2024 8:59amOctober 2024 9:08jo926 mg/dLRandom Glucose Reference Range is dependent on time and content of last meal. Glucose of more than 200 mg/dL in a nonstressed, ambulatory subject supports the diagnosis of Diabetes Mellitus.Point of Care testingBedside Glucose CommentDecember 17, 2024 8:59amOctober 2024 9:36vaRen5: cleaned meterPoint of Care testing Microbiology Results Procedure Source Result Collection Date/Time Result Date/Time Result Comment Performing Site Blood Culture Blood, Left Hand NO GROWTH 5 DAYS October 06, 2024 7:47pm October 11, 2024 7:57pm [facility] [id number] [address] [facility] 31562Rswny CultureBlood, Left WristNO GROWTH 5 DAYSAugus2024 8:16pmAugust 2024 8:22pmCleveland Clinic Foundation C[facility] [id number] [address] [facility] 71138Ivsci CultureUrine, Chou CatheterEnterococcus faecalisAugust 2024 7:55pmAugust 2024 1:37pmCleveland Clinic Foundation [facility]tr [id number] [address] [facility] 72623Kpyeo CultureUrine, FoleyNo Growth 2 DaysAugus2024 6:40pmAugust 2024 11:34amC[facility] Clinic Foundation [facility] [id number] [address] [place] [address] 09523Mxhwc CultureUrine, Chou CatheterKlebsiella pneumoniae (ESBL) December 12, 2024 1:19pmOctober 2024 9:21amC[facility] Clinic Foundation [facility] [id number] [address] [place] [address] 90653Fethb Screen MRSA/MSSANasalAugust 2024 11:05pmAugust 2024 12:46amCleveland Clinic Foundation [facility] [id number] [address] [place] [address] 62350 Diagnostic Imaging Reports Author Palmer Dejesus [facility] OhioAuthoredAugust 2024 6:32pmReportDictated Date/TimeDictated ByStatusRadiology ReportAugust 2024 6:32pmPalmer Dejesus [facility]ompleteOhioHealth [facility] Main [address] [address] [address] Scan Report Signed Patient: Irineo Mendes Jr MR# : [id number] : 1940 Acct:[id number] Age/Sex: 84 / M ADM Date: 5 Loc: ER Room: Type: PRE ER Attending Dr: Copies to: CATHY QUEVEDO~ Ordering Provider: CATHY QUEVEDO Date of Service: 10/05/24 CT/CT head/brain wo con: Fall, on Eliquis CT BRAIN WITHOUT CONTRAST: CLINICAL HISTORY: Fall COMPARISON: 01/09/2022 TECHNIQUE: Contiguous axial unenhanced images were obtained through the brain. This CT exam was performed using one or more following dose reduction techniques: Automated exposure control, adjustment of the mA and/or kV according to patient size, or use of iterative reconstruction technique. FINDINGS: Moderate to severe left periorbital and supraorbital/forehead soft tissue swelling and subcutaneous hematoma. Generalized involutional changes of brain parenchyma identified with prominence of the ventricles and sulci. Overlying the right frontal convexity, there is a 3 x 13 x 4 mm mm extra-axial density findings may favor a small meningioma although early subdural hematoma could have a similar appearance. This was not present on examination dating back to 2021. Chronic small vessel changes. Intracranial vascular calcifications. No calvarial fracture. Mild ethmoid sinus disease. Mastoids are clear. CT/CT head/brain wo con IMPRESSION: Right frontal convexity extra-axial hyperdensity. Differential includes meningioma versus small focus of subdural hematoma. Recommend short-term follow-up imaging. Critical findings were discussed with the ordering physician Dr Edwards telephone 1840 hours 10/05/2024 Impression dictated by: Palmer Dejesus M.D. 10/05/2024 6:41 PM Dictation Location: [place] [address] Transcribed By: [facility] 10/05/24 184 Dictated By: Palmer Dejesus MD 10/05/24 1832 Signed By: <Electronically signed by Palmer Dejesus MD in OV> 10/05/24 1841 Author Palmer Dejesus [facility] OhioAuthoredAugust 2024 6:42pmReportDictated Date/TimeDictated ByStatusRadiology ReportAugust 2024 6:42pmLiv PinkompSumma Health [facility] Main [place] [address] [place] [address] CT Scan Report Signed Patient: Irineo Mendes Jr MR# : [id number] : 1940 Acct:[id number] Age/Sex: 84 / M ADM Date: 5 Loc: ER Room: Type: PRE ER Attending Dr: Copies to: TEMP, PROVIDER~ Ordering Provider: CATHY QUEVEDO Date of Service: 10/05/24 CT/CT facial bones wo con: Fall, on Eliquis, Bruising gem. eyes MAXILLOFACIAL CT WITHOUT CONTRAST: CLINICAL HISTORY: Fall bruising COMPARISON: None TECHNIQUE: Spiral axial unenhanced images were obtained through the facial bones. Coronal and sagittal reconstructions were also reviewed. This CT exam was performed using one or more following dose reduction techniques: Automated exposure control, adjustment of the mA and/or kV according to patient size, or use of iterative reconstruction technique. FINDINGS: Moderate severe bifrontal subcutaneous hematoma greatest left. Periorbital/supraorbital soft tissue swelling and contusion. No facial bone fr acture or bony destruction is identified. There is appropriate development and pneumatization of the paranasal sinuses. There is no mucosal thickening or fluid levels. The ostiomeatal complexes are patent. The intraorbital contents are unremarkable. CT/CT facial bones wo con IMPRESSION: NO EVIDENCE OF FACIAL BONE INJURY Impression dictated by: Palmer Dejesus M.D. 10/05/2024 6:44 PM Dictation Location: [place] [address] Transcribed By: [facility] 10/05/241843 Dictated By: Palmer Dejesus MD 10/05/241841 Signed By: <Electronically signed by Palmer Dejesus MD in OV> 10/05/241843 Author Palmer Dejesus [facility] OhioAuthoredAuunion county general hospital 2024 6:44pmReportDictated Date/TimeDictated ByStatusRadiology ReportAugila regional medical centert 2024 6:44pmLiv PinkThe Jewish Hospital Main [place] [address] [place] [address] CT Scan Report Signed Patient: Irineo Mendes Jr MR# : [id number] : 1940 Acct:[id number] Age/Sex: 84 / M ADM Date: 5 Loc: ER Room: Type: PRE ER Attending Dr: Copies to: Terence Steele PA-C~ Ordering Provider: Terence Steele PA-C Date of Service: 10/05/24 CT/CT cervical spine wo con: Fall, on Eliquis CT CERVICAL SPINE WITHOUT CONTRAST WITH 3D RECONSTRUCTIONS: CLINICAL HISTORY: Fall COMPARISON: None TECHNIQUE: Spiral axial unenhanced images were obtained through the cervical spine. Sagittal, coronal and 3D volume-rendered reconstructions were also reviewed. This CT exam was performed using one or more following dose reduction techniques: Automated exposure control, adjustment of the mA and/or kV according to patient size, or use of iterative reconstruction technique. FINDINGS: Moderate severe multilevel degenerative changes notably C5-T1. No evidence of acute fracture or malalignment. No prevertebral soft tissue swelling. 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 Left upper lung subpleural nodule 5 x [address]/CT cervical spine wo con IMPRESSION: NO CERVICAL SPINE FRACTURE Impression dictated by: Palmer Dejesus M.D. 10/05/2024 6:47 PM Dictation Location: [place] [address] Transcribed By: [facility] 10/05/241846 Dictated By: Palmer Dejesus MD 10/05/241843 Signed By: <Electronically signed by Palmer Dejesus MD in OV> 10/05/241846 Author Shaquille Mahoney [facility] OhioAuthoredHornsby Bend 2024 3:18pmReportDictated Date/TimeDictated ByStatusRadiology ReportAugila regional medical centert 2024 3:18pmShaquille Mahoney II [facility] Main [place] [address] [place] [address] CT Scan Report Signed Patient: Irineo Mendes Jr MR# : [id number] : 1940 Acct:[id number] Age/Sex: 84 / M ADM Date: 5 Loc: 3T Room: [address] [place] [address] Type: ADM INOo Attending Dr: Franck Gagnon DO Copies to: DO Franck Sanchez DO~ Ordering Provider: Frankie Johnson DO Date of Service: 10/06/24 CT/CT head/brain wo con: fall CT head/brain wo con 10/06/2024 8:20 AM SIGNS AND SYMPTOMS: Fall hitting head/face, hematoma over forehead with periorbital bruising TECHNIQUE:Multi-detector CT axial slices of the brain were obtained without IV contrast. CT was performed with one or more of the following dose reduction techniques: Automated exposure control, adjustment of the mA and/or kV according to patient size, or use of iterative reconstruction technique. COMPARISON: 10/05/2024 FINDINGS: There is no shift of the midline structures, acute intracranial bleeding, effects, or evidence of acute ischemia. There is a subdural hematoma overlying the right frontal convexity measuring 4 mm in thickness. This is similar to that seen on the prior exam. Periventricular white matter hypoattenuation is noted. Atherosclerotic changes are noted in the V4 segments of the vertebral arteries and intrarenal segments of the internal carotid arteries. Periventricular white matter hypoattenuation is redemonstrated with mild age-related cortical atrophy similar to the prior exam. The ventricular system is normal in size. The brainstem and the cerebellum are unremarkable. The visualized intraorbital contents, the visualized paranasal sinuses, and the infratemporal soft tissues show no acute abnormality. The osseous structures in the skull base and the calvarium show no abnormality. There is a large hematoma along the left frontal scalp soft tissue swelling in the preseptal soft tissues of the orbits left greater than right and in the left premaxillary soft tissues. CT/CT head/brain wo con IMPRESSION: There is a subdural hematoma overlying the right frontal convexity measuring 4 mm in thickness. This is similar to that seen on the prior exam. There is a large hematoma along the left frontal scalp soft tissue swelling in the preseptal soft tissues of the orbits left greater than right and in the left premaxillary soft tissues. Impression dictated by: Shaquille Mahoney M.D. 10/06/2024 3:21 PM Dictation Location: [place] [address] Transcribed By: [facility] 10/06/24 1521 Dictated By: Shaquille Mahoney II, MD 10/06/24 1518 Signed By: <Electronically signed by Shaquille Mahoney II, MD in OV> 10/06/24 1521 Author Shaquille Mahoney [facility] 2024 8:31amReportDictated Date/TimeDictated ByStatusRadiology ReportAugust 2024 8:31Doreen Mahoney II [facility] [place] [address] [place] [address] CT Scan Report Signed Patient: Irineo Mendes Jr MR# : [id number] : 1940 Acct:[id number] Age/Sex: 84 / M ADM Date: Loc: 3T Room: [address] [place] [address] Type: ADM INOo Attending Dr: Franck Gagnon DO Copies to: DO Franck Sanchez DO~ Ordering Provider: Frankie Johnson DO Date of Service: 10/07/24 CT/CT head/brain wo con: fall CT head/brain wo con 10/07/2024 4:49 AM SIGNS AND SYMPTOMS: ^fall, subdural hemorrhage TECHNIQUE:Multi-detector CT axial slices of the brain were obtained without IV contrast. CT was performed with one or more of the following dose reduction techniques: Automated exposure control, adjustment of the mA and/or kV according to patient size, or use of iterative reconstruction technique. COMPARISON: 10/06/2024 FINDINGS: There is no shift of the midline structures, acute intracranial bleeding, effects, or evidence of acute ischemia. There is a subdural hematoma overlying the right frontal convexity measuring 4 mm in thickness. This is similar to that seen on the prior exam. Periventricular white matter hypoattenuation is noted. Atherosclerotic changes are noted in the V4 segments of the vertebral arteries and intrarenal segments of the internal carotid arteries. Periventricular white matter hypoattenuation is redemonstrated with mild age-related cortical atrophy similar to the prior exam. The ventricular system is normal in size. The brainstem and the cerebellum are unremarkable. The visualized intraorbital contents, the visualized paranasal sinuses, and the infratemporal soft tissues show no acute abnormality. The osseous structures in the skull base and the calvarium show no abnormality. There is a large hematoma along the left frontal scalp soft tissue swelling in the preseptal soft tissues of the orbits left greater than right and in the left premaxillary soft tissues. CT/CT head/brain wo con IMPRESSION: There is a subdural hematoma overlying the right frontal convexity measuring 4 mm in thickness. This is similar to that seen on the prior exam. There is a large hematoma along the left frontal scalp soft tissue swelling in the preseptal soft tissues of the orbits left greater than right and in the left premaxillary soft tissues. Impression dictated by: Shaquille Mahoney M.D. 10/07/2024 8:33 AM Dictation Location: [place] [address] Transcribed By: [facility] 10/07/24832 Dictated By: Shaquille Mahoney II, MD 10/07/2431 Signed By: <Electronically signed by Shaquille Mahoney II, MD in OV> 10/07/24832 Author Shaquille Mahoney [facility]AuthoredAuunion [facility] 2024 8:48amReportDictated Date/TimeDictated ByStatusRadiology ReportAuunion county general hospital 2024 8:48amMark Andrés Mahoney II MDcompSumma Health [place] [address] XRay Report Signed Patient: Irineo Mendes Jr MR# : [id number] : 1940 Acct:[id number] Age/Sex: 84 / M ADM Date: Loc: Room: [address] [place] [address] Type: ADM INOo Attending Dr: Franck Gagnon DO Copies to: Franck Gagnon DO~ Ordering Provider: Franck Gagnon DO Date of Service: 10/06/24 XR/XR chest 1V portable: fever XR chest 1V portable 10/06/2024 8:16 PM SIGNS AND SYMPTOMS: ^portable ^fever PROTOCOL: Frontal radiograph the chest COMPARISON: 07/16/2024 FINDINGS: The trachea is midline. There is cardiomegaly with mild hazy airspace opacities bilaterally, greatest at the left lung base. There is a small left-sided pleural effusion. Atherosclerotic changes are noted in the thoracic aorta. The bony thorax is intact. XR/XR chest 1V portable IMPRESSION: Bilateral airspace opacities are noted with a small left-sided pleural effusion. Impression dictated by: Shaquille Mahoney M.D. 10/07/2024 8:53 AM Dictation Location: [facility]17 Transcribed By: [facility] 10/07/2453 Dictated By: Shaquille Mahoney II, MD 10/07/2448 Signed By: <Electronically signed by Shaquille Mahoney II, MD in OV> 10/07/24 0853 Author Shaquille Mahoney [facility]AuthoredAu[facility] hospital 2024 8:53amReportDictated Date/TimeDictated ByStatusRadiology ReportAugila regional medical centert 2024 8:53amMardavid Mahoney II [facility] [place] [address] [place] [address] CT Scan Report Signed Patient: Irineo Mendes Jr MR# : [id number] : 1940 Acct:[id number] Age/Sex: 84 / M ADM Date: 5 Loc: 3T Room: [address] [place] [address] Type: ADM INOo Attending Dr: Franck Gagnon DO Copies to: MD Franck Ashley, DO~ Ordering Provider: Michele Knight MD Date of Service: 10/06/24 CT/CT head/brain wo con: change in mentation CT head/brain wo con 10/06/2024 8:04 PM SIGNS AND SYMPTOMS: ^change in mentation, subdural hemorrhage TECHNIQUE:Multi-detector CT axial slices of the brain were obtained without IV contrast. CT was performed with one or more of the following dose reduction techniques: Automated exposure control, adjustment of the mA and/or kV according to patient size, or use of iterative reconstruction technique. COMPARISON: 10/07/2024 FINDINGS: There is no shift of the midline structures, acute intracranial bleeding, effects, or evidence of acute ischemia. There is a subdural hematoma overlying the right frontal convexity measuring 4 mm in thickness. This is similar to that seen on the prior exam. Periventricular white matter hypoattenuation is noted. Atherosclerotic changes are noted in the V4 segments of the vertebral arteries and intrarenal segments of the internal carotid arteries. Periventricular white matter hypoattenuation is redemonstrated with mild age-related cortical atrophy similar to the prior exam. The ventricular system is normal in size. The brainstem and the cerebellum are unremarkable. The visualized intraorbital contents, the visualized paranasal sinuses, and the infratemporal soft tissues show no acute abnormality. The osseous structures in the skull base and the calvarium show no abnormality. There is a large hematoma along the left frontal scalp soft tissue swelling in the preseptal soft tissues of the orbits left greater than right and in the left premaxillary soft tissues. CT/CT head/brain wo con IMPRESSION: There is a subdural hematoma overlying the right frontal convexity measuring 4 mm in thickness. This is similar to that seen on the prior exam. There is a large hematoma along the left frontal scalp soft tissue swelling in the preseptal soft tissues of the orbits left greater than right and in the left premaxillary soft tissues. Impression dictated by: Shaquille Mahoney M.D. 10/07/2024 9:12 AM Dictation Location: [place] [address] Transcribed By: [facility] 10/07/24 0912 Dictated By: Shaquille Mahoney II, MD 10/07/24 0853 Signed By: <Electronically signed by Shaquille Mahoney II, MD in OV> 10/07/24 0912 Author Esa Cardoso [facility]AuthoredAuunion [facility] 2024 5:19pmReportDictated Date/TimeDictated ByStatusRadiology ReportAuunion county general hospital 2024 5:19pmDigna DavidOhioHealth [facility] [place] [address] [place] [address] CT Scan Report Signed Patient: Irineo Mendes Jr MR# : [id number] : 1940 Acct:[id number] Age/Sex: 84 / M ADM Date: 5 Loc: CT Room: Type: [facility] Attending Dr: Jovany Stovall MD Copies to: Jovany Stovall MD~ Ordering Provider: Jovany Stovall MD Date of Service: 10/31/24 CT/CT head/brain wo con: Evaluate hemorrhage Unenhanced head CT TECHNIQUE: Contiguous axial imaging of the head. The CT exam was performed using one or more the following dose reduction techniques: Automated exposure control, adjustment of the MA and/or Kv according to patient size, or use of the iterative reconstruction technique. COMPARISON: 10/07/2024 HISTORY: Evaluate hemorrhage. VENTRICLES: Within normal limits ATROPHY: Similar diffuse atrophy BRAIN PARENCHYMA: Adequate mac-white matter differentiation identified. HEMORRHAGE: Hyperdense right subdural hematoma no longer seen. HERNIATION: No mass effect or herniation INFARCTION: No recent vascular distribution infarction is seen. EXTRA-AXIAL FLUID COLLECTIONS None MIDBRAIN: Unremarkable RICKI: Unremarkable MEDULLA: Unremarkable SINUSES: Unremarkable ORBITS: Grossly unremarkable MASTOIDS: Unremarkable BONY STRUCTURES Intact ADDITIONAL FINDINGS: Left frontal scalp hematoma. Decreased density. Decreased size thickness up to 14 mm. Prior measurement up to 2.[address]/CT head/brain wo con IMPRESSION: Resolution of right high convexity subdural hematoma. Improving left frontal scalp hematoma. Impression dictated by: Esa Cardoso M.D. 10/31/2024 5:26 PM Dictation Location: [facility] Transcribed By: [facility] 10/31/24 1726 Dictated By: Esa Cardoso DO 10/31/24 1719 Signed By: <Electronically signed by Esa Cardoso DO in OV> 10/31/24 1726 Author Esa Cardoso [facility]AuthoredAugila [facility] centert 2024 5:26pmReportDictated Date/TimeDictated ByStatusRadiology ReportAugila regional medical centert 2024 5:26pmAndreina DavidThe [facility] Hospital [place] [address] [place] [address] CT Scan Report Signed Patient: Irineo Mendes Jr MR# : [id number] : 1940 Acct:[id number] Age/Sex: 84 / M ADM Date: 5 Loc: CT Room: Type: [facility] Attending Dr: Jovany Stovall MD Copies to: MD Keely Snigh APRN~ Ordering Provider: Keely Montoya APRN Date of Service: 10/31/24 CT/CT lumbar spine wo con: M54.10 - Radiculopathy, site unspecified CT LUMBAR SPINE WITHOUT CONTRAST TECHNIQUE: Axial acquisition of the lumbar spine obtained with the sagittal and coronal reconstructed imaging.The CT exam was performed using one or more the following dose reduction techniques: Automated exposure control, adjustment of the MA and/or Kv according to patient size, or use of the iterative recon struction technique. HISTORY: Left lower extremity radiculopathy. History of prior decompressive laminectomy. History of tumor resection COMPARISON: MRI lumbar spine 04/03/2024 FINDINGS: The last fully segmented vertebral pair is operationally defined as L5/S1. POST SURGERY CHANGES: Left hip arthroplasty. Lumbar laminectomy decompressive changes. BONY ALIGNMENT: Stable lumbar lordosis. Similar multilevel degenerative listhesis. 5 to 6 mm L4-5 anterolisthesis. Minor L1-2, L2-3 and L3-4 retrolisthesis. SPINAL CANAL:Patent bony central canal LUMBAR FRACTURE: Development of greater than 50% superior endplate compression deformity L1 vertebral body. No significant retropulsion of fracture fragments. BONY LESIONS: None KIDNEYS: No hydronephrosis is identified. AORTA: No aortic aneurysm is seen. Extensive atherosclerosis Lower thoracic level: Unremarkable L1-2:Moderate disc space narrowing with endplate spurring. Patent bony central canal. Patent neural foramen L2-3: Disc space narrowing, endplate spurring and mild retrolisthesis. Laminectomy decompression moderate bilateral bony neural foraminal narrowing L3-4:Disc space narrowing, endplate spurring and minor retrolisthesis. Decompressive laminectomy change. Mild to moderate bilateral bony neural foraminal narrowing. Facet degeneration. L4-5:Moderate disc space narrowing. 6 mm anterolisthesis. Decompressive laminectomy. Mild to moderate bilateral neural foraminal narrowing. Extensive facet degeneration. L5-S1:Adequate disc space. Adequate bony central canal. Mild bilateral bony neural foraminal narrowing. Facet degeneration Assessment of disc herniation limited with CT examination. No obvious disc herniation seen with CT exam. CT/CT lumbar spine wo con IMPRESSION:Developing greater than 50% L1 endplate compression deformity. No retropulsion of bony fracture fragments. Redemonstration of extensive multilevel discovertebral degenerative changes. Redemonstration of lumbar decompressive laminectomy changes. Extensive multilevel facet degeneration. Impression dictated by: Esa Cardoso M.D. 10/31/2024 5:33 PM Dictation Location: [facility] Transcribed By: [facility] 10/31/24 173 Dictated By: Esa Cardoso DO 10/31/24 172 Signed By: <Electronically signed by Esa Cardoso DO in OV> 10/31/24 173 Author Esa Cardoso [facility]AuthoredAuunion [facility] 2024 5:35pmReportDictated Date/TimeDictated ByStatusRadiology ReportAugila regional medical centert 2024 5:35pmLori DavidADAMS COUNTY REG[facility] [place] [address] [place] [address] XRay Report Signed Patient: Irineo Mendes Jr MR# : [id number] : 1940 Acct:[id number] Age/Sex: 84 / M ADM Date: 5 Loc: CT Room: Type: [facility] Attending Dr: Jovany Stovall MD Copies to: MD Keely Singh APRN~ Ordering Provider: Keely Montoya APRN Date of Service: 10/31/24 XR/XR lumbar spine 6V w bending: M54.10 - Radiculopathy, site unspecified 6 views Lumbar Spinewith bending HISTORY: Low back pain COMPARISON: 09/27/2023, 04/03/2024 POSTSURGICAL CHANGES: Lumbar laminectomy. Left hip arthroplasty BONY ALIGNMENT: Stable HYPERMOBILITY:No hypermobility LISTHESIS:Similar multilevel degenerative listhesis in greatest at the L4-5 level FRACTURE: Development of L1 anterior wedge compression fracture greater than 50% DEGENERATIVE CHANGES: Similar extensive degeneration greatest in the lower lumbar facets SOFT TISSUES: Unremarkable BONY MINERALIZATION:Decreased XR/XR lumbar spine 6V w bending IMPRESSION: No hypermobility. Development of greater than 50% L1 anterior wedge compression fracture. Similar bony alignment and degenerative change. Impression dictated by: Esa Cardoso M.D. 10/31/2024 5:40 PM Dictation Location: [facility] Transcribed By: [facility] 10/31/24 174 Dictated By: Esa Cardoso DO 10/31/241734 Signed By: <Electronically signed by Esa Cardoso DO in OV> 10/31/24 1740 Author Shaquille Mahoney [facility] OhioAuthoredSeptember 2024 1:23pmReport Dictated Date/TimeDictated ByStatusRadiology ReportSeptember 2024 1:23pm Shaquille Mahoney II [facility]ompleteOhioHealth [facility] [place] [address] [place] [address] MRI Report Signed Patient: Irineo Mendes Jr MR# : [id number] : 1940 Acct:[id number] Age/Sex: 84 / M ADM Date: 5 Loc: MR Room: Type: [facility] Attending Dr: Keely Montoya APRN Copies to: Keely Montoya APRN~ Ordering Provider: Keely Montoya APRN Date of Service: 12/04/24 MR/MR lumbar spine wo/w con: S32.010A - Wedge vega katarzyna fracture of first lumbar mis... MR lumbar spine wo/w con 12/04/2024 10:21 AM SIGNS AND SYMPTOMS: Chronic back and left hip pain, right leg numbness and tingling PROTOCOL: Multiplanar multisequence MR images of the lumbar spine with and without IV contrast CONTRAST: 16 mL of intravenous ProHance COMPARISON: 10/31/2024 and 04/03/2024 FINDINGS: There is 6 mm of anterolisthesis of L4 upon L5 similar to the prior exam. There is posterior decompression from L2 through L5 similar to the prior studies.. There is anterior wedging of the L1 vertebral body with is noted in the superior endplate. There is approximately 50% loss of vertebral body height. This is unchanged when compared to the prior CT. Mild anterior wedging is also redemonstrated at T12. The conus terminates at the superior endplate of the L2 vertebral body level. No epidural or paraspinous fluid collection is appreciated. No abnormal postcontrast enhancement. At T12-L1: There is a broad-based disc bulge with facet hypertrophy. There is mild spinal canal narrowing with mild bilateral neural foraminal stenosis. At L1-L2: Broad-based disc bulge with facet hypertrophy and ligamentum flavum thickening. There is mild spinal canal narrowing with mild bilateral neural foraminal narrowing. At L2-L3: There is a circumferential disc bulge with endplate osteophyte formation and facet is moderate to severe neural foraminal stenosis bilaterally, right greater than left. There is minimal spinal canal narrowing. At L3-L4: There is a broad-based disc bulge. There is facet hypertrophy with endplate osteophyte formation. There is severe right and moderate severe left neural foraminal narrowing with mass effect on the exiting right L3 nerve roots. This is similar to the prior study. At L4-L5: There is a circumferential disc bulge with facet hypertrophy. There is mild spinal canal narrowing with severe bilateral neural foraminal narrowing and mass effect on the exiting L4 nerve roots left greater than right. This is unchanged. Facet degenerative changes contribute to 6 mm of anterolisthesis of L4 upon L5 similar to the prior exam. At L5-S1: Facet degenerative changes are present bilaterally without significant stenosis. MR/MR lumbar spine wo/w con IMPRESSION: At L3-L4: There is a broad-based disc bulge. There is facet hypertrophy with endplate osteophyte formation. There is severe right and moderate severe left neural foraminal narrowing with mass effect on the exiting right L3 nerve roots. This is similar to the prior study. At L4-L5: There is a circumferential disc bulge with facet hypertrophy. There is mild spinal canal narrowing with severe bilateral neural foraminal narrowing and mass effect on the exiting L4 nerve roots left greater than right. This is unchanged. Facet degenerative changes contribute to 6 mm of anterolisthesis of L4 upon L5 similar to the prior exam. Lesser but still significant degrees of degenerative changes are redemonstrated, as above. No abnormal postcontrast enhancement. Impression dictated by: Shaquille Mahoney M.D. 12/04/2024 1:30 PM Dictation Location: [place] [address] Transcribed By: [facility] 12/04/24 1330 Dictated By: Shaquille Mahoney II, MD 12/04/24 1323 Signed By: <Electronically signed by Shaquille Mahoney II, MD in OV> 12/04/24 1330 Author Shaquille Mahoney [facility] OhioAuthoredOctmcdowell [facility] hospital 2024 1:42pmReportDictated Date/TimeDictated ByStatusRadiology ReportOctober 2024 1:42pmShaquille Mahoney II [facility] [place] [address] [place], [place] [address] XRay Report Signed Patient: Irineo Mendes Jr MR# : [id number] : 1940 Acct:[id number] Age/Sex: 84 / M ADM Date: 5 Loc: ER Room: Type: [facility] ER Attending Dr: Copies to: Sree Thao [...] Mahoney M.D. 12/12/2024 1:46 PM Dictation Location: [place] [address] Transcribed By: [facility] 12/12/24 1346 Dictated By: Shaquille Mahoney II, MD 12/12/24 1342 Signed By: <Electronically signed by Shaqulile Mahoney II, MD in OV> 12/12/24 1346 Author Shaquille Mahoney [facility]AuthoredOctmcdowell ar[facility] 2024 1:46pmReportDictated Date/TimeDictated ByStatusRadiology ReportOctober 2024 1:46pmShaquille Mahoney II [facility] [place] [address] [address] [address] Scan Report Signed Patient: Irineo Mendes Jr MR# : [id number] : 1940 Acct:[id number] Age/Sex: 84 / M ADM Date: 10/08/2 5 Loc: ER Room: Type: [facility] ER Attending Dr: Copies to: Sree Thao DO~ Ordering Provider: Sree Thao DO Date of Service: 12/12/24 CT/CT cervical spine wo con: fall ([id number]) CT/CT head/brain wo con: fall CT head/brain wo con, CT cervical spine wo con 12/12/2024 1:28 PM SIGNS AND SYMPTOMS: Multiple falls with bruising and skin tears on arms TECHNIQUE:Multi-detector CT axial slices of the brain and cervical spine were obtained without IV contrast. Helical,sagittal, coronal, and 3-D reconstructions of the cervical spine were performed. CT was performed with one or more of the following dose reduction techniques: Automated exposure control, adjustment of the mA and/or kV according to patient size, or use of iterative reconstruction technique. COMPARISON: 10/31/2024 FINDINGS: Noncontrast head CT: There is no shift of the midline structures, acute intracranial bleeding, mass effects, or evidence of acute ischemia. Atherosclerotic changes are noted in t he intracranial segments of the internal carotid arteries and V4 segment of the right vertebral artery. The ventricular system is normal in size. The brainstem and the cerebellum are unremarkable. The visualized intraorbital contents, the visualized paranasal sinuses, and the infratemporal soft tissues show no acute abnormality. The osseous structures in the skull base and the calvarium show no abnormality. There is soft tissue swelling in the left frontal scalp which is decreased since [...] in the aortic arch, origins of great vessels, and carotid bifurcations. There is a lipoma within [...] Mahoney M.D. 12/12/2024 1:53 PM Dictation Location: [place] [address] Transcribed By: [facility] 12/12/24 1353 Dictated By: Shaquille Mahoney II, MD 12/12/24 1346 Signed By: <Electronically signed by Shaquille Mahoney II, MD in OV> 12/12/24 1353 Vital Signs Vital Reading Result Reference Range Collection Date/Time Height 62 [in_i] October 04, 2024 2:00pmBody Hmwkhfqtgsn71.2 [degF]97.6-99.0July 2024 2:00pm Heart Rate43 /anw72-064Qesc 2024 2:00pmBP Nyvvmcnq148 mm[Hg]100-140July 2024 2:00pmBP Kpqanelft35 mm[Hg]60-100July 2024 2:76umVwukqa12 [in_i]October 06, 2024 2:05czEiyyek59.40 kgAugust 2024 6:11amBody Fitvjrkrtmt58.6 [degF]97.6-99.0August 2024 8:00amHeart Rate67 /agc42-995 October 10, 2024 8:00amRespiratory rate18 /mkw58-36Jauqmz 2024 8:00amOxygen saturation by Pulse bgykzfin75 %95-100August 2024 8:00amBP Hzfymsep03 mm[Hg]100-140August 2024 8:00amBP Jlcwmexge25 mm[Hg]60-100August 2024 8:00amInhaled oxygen flow rate2 L/minAugust 2024 3:37kdMlhufw43 [in_i] December 04, 2024 8:12gaUtcteg80.00 kgSeptember 2024 8:29ylKcwfgf25 [in_i]December 13, 2024 1:25grLsfcdo59.00 kgOctober 14th, 2025 5:59amBody Jovwatflzda77.8 [degF]97.6-99.0Octmcdowell arh hospital 2024 12:00pmHeart Rate95 /wua47-570 December 18, 2024 2:46pmRespiratory rate20 /wan15-03Tkbqadj 2024 2:46pm Oxygen saturation by Pulse qrixyvhy07 %95-100Octmcdowell [facility] hospital 2024 12:00pmBP Xlaqeytu706 mm[Hg]100-140Octmcdowell ar[facility] hospital 2024 12:00pmBP Yjfqecesv67 mm[Hg]60-100 December 18, 2024 12:00pm Advance Directives Advance Directive Response Recorded Date/ Time Advance Directives No April 05, 2023 4:20pm Insurance Providers Guarantor Irineo Mendes Jr Address [address] [id number] Info.Home Phone: Coverage Status Update:2024 Payer Group Member ID Coverage Type Subscriber Relationship to Subscriber Effective Date Expiration Date Gadiel [place] Id: [id number] R Houlett , Jr Id: [id number] [address] [address] Home Phone: Email: [email or web address] [id number] Mendes Jr Id: [id number] [address] [address] Home Phone: Email: [email or web address] Encounters Encounter Location(s) Arrival/Admit Date Discharge/Departure Date Discharge/Departure Disposition Provider(s) Departed Physician/ Provider Office Visit -[facility] Infect Dis October 04, 2024 1:51pm October 04, 2024 2:20pm Discharged to home care or self care (routine discharge) Frankie Reynolds MD Non-patient / Non-visit -[facility] Infect Dis A ugust 2024 7:55pm Frankie Reynolds MDNon-patient / [facility] 2024 9:13pmDale E Stovall , MDDischarged Inpatient-3 [facility] 2024 7:05amAugu2024 12:45pm Discharged/transferred to alf facility (SNF) with MATT Asheparted Clinical-CT Scan [facility] 2024 11:01amAugust 2024 11:02amDischarged to home care or self care (routine discharge)Jovany Stovall , SRUTHIeparted Physician/Provider Office Visit-[facility] NeurosurgerySept2024 9:43amSeptember 2024 10:19amDischarged to home care or self care (routine discharge)Keely Montoya APRNDeparted Clinical[facility] November 29, 2024 11:23amSept2024 11:24amDischarged to home care or self care (routine discharge)Keely Montoya APRNDeparted Clinical-MRI [facility] 2024 9:41amSeptember 2024 9:42amDischarged to home care or self care (routine discharge)Keely Montoya , APRNDischarged [facility]patient-[facility] 2:39pmOctober 2024 3:30pm Discharged/transferred to alf facility (SNF) with Dickson Knight MDNon-patient / Xbk-llsgv-[facility]October 2024 9:17pm(Maki) Cristy Prince NP-CDeparted Referred-LAB [facility] 20[facility] 9:51pmOctober 2024 9:52pmDischarged to home care or self care (routine discharge)Liliana Dasilva Marker , DO Recent Diagnosis Onset Date Admit Date Catheter-associated [...] November 06, 2024 9:43am Intracranial hemorrhage Unknown Novemb2024 9:43am Radicular low back pain Unknown Novembe r 2024 9:43am Severe back pain Unknown November 06, 2024 9:43am Falls Unknown December 12 2:39pm Pressure ulcer of coccygeal region, stage 2 Unkn own December 12, 2024 2:39pm Stage III pressure ulcer of right heel Unknown December 12, 2024 2:39pm Atrial fibrillation with RVR Unknown Dec 2:39pm Functional Status Observation Response Date Recorded [...] 7:05amFeverdeletedAugust 2024 7:05amCompression fracture of L1 lumbar vertebraacuteSeptember 2024 9:43amHx of decompressive lumbar laminectomy acuteSeptember 2024 9:43amIntracranial hemorrhageacuteSept2024 9:43amRadicular low back painacuteSeptember 2024 9:43amSevere back pain acuteSeptember 2024 9:43amFallsacuteOctober 2024 2:39pmPressure ulcer of coccygeal region, stage 2acuteOct2024 2:39pmStage III pressure ulcer of right heelacuteOct2024 2:39pmAtrial fibrillation with RVR resolvedOct2024 2:39pm Plan of Treatment Author Frankie Reynolds [facility] OhioAuthoredJutiki 2024 2:29pmPatient appears nontoxic today and appears [...] target treatment. Of course with a chronic Chou catheter asymptomatic colonization is expected. His urine [...] easily just be colonized Author Keely Montoya [facility]AutConne[facility]2024 10:29amThis patient is an 84-year-old male who [...] which is why he was admitted to alf facility posthospitalization. He still has some pain [...] scheduled test information is unavailable Pending Tests Test Name Ordered Date Scheduled Date Urine Culture December 27, 2024 9:51pm Future Visits Future appointment information is unavailable Future Procedures Procedure Name Ordered Date Scheduled Date Admit Status Order December 12, 2024 2:39pm Octo heather 2024 2:39pm Discharge Order December 18, 2024 11:08am Octob er 2024 11:08am Urine Culture December 28, 2024 12:34pm Octob er 2024 9:51pm Admit Status Order October 05, 2024 9:13pm [...] activity level * Maintains balanced intake and outputDesMercy Health [facility]iff[facility] HospitalOctm[facility] 2024 3:48pmSkin integrity intact [facility] 3:48pmMaintain/increase activity levels * Understands factors that may lead to activity intolerance * Helps perform self care activities * Maintains maximum range of motion * Increase/regain muscle mass and strength * Maintains VS WNL during activity * Maintain intact skin integrity Updated: 3DestSt. Mary's Medical CenterOctober 2024 3:48pmAbsence of new skin breakdown [facility] 2024 3:48pmWound healing [facility] HospitalOct[facility] 2024 3:48pmFall Prevention estiny [facility] 2024 3:48pmMaintain/increase activity levels * Understands factors that may lead to activity intolerance * Helps perform self care activities * Maintains maximum range of motion * Increase/regain muscle mass and strength * Maintains VS WNL during activity * Maintain intact skin integrity Updated: [facility]/20[facility] 2024 1:06pmFall Prevention 2022[facility]leOhio[facility] 2024 1:06pmExhibit optimal tissue perfusion * Exhibits adequate oxygenation and ventilation * Exhibits adequate cardiac output * Regains stable cardiac rhythm * Maintains optimal activity level * Maintains balanced intake and outputAs[facility] 2024 1:06pmSkin integrity intact [facility] 2024 1:06pmAbsence of new skin breakdown [facility] 2024 1:06pmWound healing [facility] 2024 1:06pm Preferences Type Detail Treatment Intervention Code Status: Full Code Treatment Intervention Code Status: Full Code
[2024-12-30] VITALS (30 sets, daily range): BP systolic 120–139; BP diastolic 68–100; PULSE 0–105; TEMP 36.7–37.4; O2SAT 90–99; BMI 25.3
--- NOTE | 2024-12-30 15:41 | XR_ITS ---
[facility] [place] [id number] Patient Name: TAVO WALLIS MRN: [id number] date: 1940 Sex: M Assigned Patient Location: ED.MAIN Current Patient Location: ER Accession/Order Number: [id number] Exam Date: 12/30/2024 15:50 Report Date: 12/30/2024 17:06 At the request of: LEA PEÑA DO Procedure: XR chest 1V Plain film chest Single view HISTORY: Decreased responsiveness COMPARISON: 12/27/2024 FINDINGS: SUPPORT DEVICES: None POSTSURGICAL CHANGES: None HEART: Cardiomegaly PULMONARY VALERIE: There are vascular prominence MEDIASTINUM: Unremarkable LUNGS AND PLEURA: Mild basilar pleural-parenchymal changes. No pneumothorax. BONY STRUCTURES: Intact ADDITIONAL FINDINGS None XR/XR chest 1V IMPRESSION: Similar CHF findings. Impression dictated by: Esa Cardoso M.D. 12/30/2024 5:06 PM Dictation Location: [facility] [employer] Electronically authenticated by: [id number] Y Date: 12/30/2024 17:06
--- NOTE | 2024-12-30 15:41 | ECG_ITS ---
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 Measurements Intervals [place] Rate: 99 P: -06171 [place]: -37861 QRS: 167 QRSD: 76 T: 23 QT: 326 QTc: 382 Interpretive Statements 20871 Atrial fibrillation with aberrant conduction, or ventricular premature complexes 3134 Anterior myocardial infarction, age undetermined 5120 Possible right ventricular hypertrophy 9150 abnormal ECG Compared to ECG 12/27/2024 21:12:51 No significant changes Electronically Signed On 12-30-2024 16:11:15 EDT by ROWAN OCHOA M.D.
--- OUTSIDE RECORDS SUMMARY | 2024-12-30 15:43 | XMS_ITS | Clinical Summary ---
Author Organization [facility] Address [address] [place] [id number] Care Team Providers Care Manager Cafe Name Role Phone Unavailable Primary Care Provider Unavailabl e Allergies Active AllergyReactionsCriticalityNoted DateCommentsPenicillinsMental Status Dfyrtm4904/07/2004 Medications MedicationSigDispense QuantityRefillsLast FilledStart DateEnd DateStatus SYNTHROID 150 MCG TABLET Take one(1) tablet daily.Active ALLOPURINOL 300 MG TABLET Take one(1) tablet daily.Active HYTRIN 2 MG CAPSULE Take one(1) capsule daily.Active BUMEX 2 MG TABLET Take one(1) tablet daily.Active CELEBREX 200 MG CAPSULE Take one(1) capsule daily.Active LEXAPRO 5 MG TABLET take one half [id number] VICODIN 5/500 TABLET as izpmrp654Active K-DUR 20 MEQ TABLET SA Take one(1) tablet daily.Active Active Problems No known active problems Family History Medical HistoryRelationCommentsAlzheimer's DiseaseMotherCoronary Artery Disease MotherHad CABG when she was olderThyroidSisterHypothyroidismobesitySister RelationStatusCommentsMotherSister Social History Tobacco UseTypesPacks/DayYears UsedDateSmoking Tobacco: TbaqgmLpdatqnlan970 04/07/1964 - 04/07/1994 Comments:Started in [place] Alcohol UseStandard Drinks/WeekCommentsYes0 (1 standard drink = 0.6 oz pure alcohol)A few beers every daySex and Gender InformationValueDate RecordedSex Assigned at BirthNot on fileLegal ItpUzuw28/02/2012 10:06 AM ESTGender Identity Not on fileSexual OrientationNot on fileOccupationIndustryJob Start DateJob End DateNot on fileNot on fileNot on fileNot on file Last Filed Vital Signs Vital SignReadingTime TakenCommentsBlood Xhyhouzf685/85006/28/2024 10:50 AM EDT Lgxui0544 10:50 AM MYNIodabcftcka97.9 ??C (98.5 ??F)06/28/2024 10:50 AM EDTRespiratory Razu984206/28/2024 10:50 AM EDTOxygen Ujgmljpfdj52%06/28/2024 10:50 AM EDTInhaled Oxygen Concentration--Idrres278.2 kg (276 lb)04/07/2004 3:44 PM ESTHeight--Body Mass Index-- Plan of Treatment Health MaintenanceDue DateLast DoneCommentsAnxiety Vogafjkaf03/11/1960Depression Vanzlezbn01/11/1960DTaP,Tdap,Td Vaccine (1 - Tdap)1Diabetes Screening 1986Pneumococcal Vaccine: 50+ (1 of 1 - PCV)07/16/1991Shingrix Vaccine (1 of 2)07/16/1991RSV Vaccine (1 - 1-dose 75+ series)2016Advance Directive Sbjmrmtdqu04/01/2025ovid-19 Vaccine (1 - 2024- season)2024Influenza Vaccine (#1)2024 Insurance
--- OUTSIDE RECORDS SUMMARY | 2024-12-30 15:43 | XMS_ITS | Patient Health Record ---
Author Organization [facility] Address [address] [place] [address] Care Team Providers Care Charging Manipulator Name Role Phone DaytonRandi Sage Unavailable [phone] SIXTO SIMMONS CNP Unavailable Unavailable Gustabo May Unavailable [phone] Maxine Torres Unavailable Allergies Allergen (clinical drug ingredient) Drug/Non Drug Allergy documented on EMR Reaction Allergy Type Onset Date Status penicillin (uncoded)UnknownAllergyActiveindomethacinindomethacinUnknownDrug AllergyActivefentanylfentaNYLUnknownDrug AllergyActivezolpidemAmbienUnknownDrug AllergyActive Results Component Value Reference Range Notes CT HEAD WO CONTRAST Reviewed date:03/06/2024 07:29:49 AM Interpretation: Performing Lab: Notes/Report: CT head without contrast [place] [address], Original Ordering Provider: Joanne JUNIOR Provider Role: Copied XR CHEST PORTABLE Reviewed date:03/06/2024 07:29:49 AM Interpretation: Performing Lab: Notes/Report: 1 view chest x-ray [place] [address] [place] [address], Original Ordering Provider: Joanne JUNIOR Provider Role: Copied XR LUMBAR SPINE 1 VW Reviewed date:02/22/2024 03:19:14 PM Interpretation: Performing Lab: Notes/Report: MOBILE LATERAL LUMBAR SPINE: [place] [address] [place] [address], Original Ordering Provider: Joanne CARLOS Provider Role: Ordering Magnesium Reviewed date:04/25/2024 11:56:11 AM Interpretation: Performing Lab: Notes/Report: [address] [address] Magnesium Lvl 1.9 1.7-2.4 mg/dL Troponin-I Reviewed date:04/25/2024 11:56:06 AM Interpretation: Performing Lab: Notes/Report: [address] [address]Ifeeesyw-U<0.030.00-0.03 ng/mL An increased Troponin-I value, in the absence of myocardial ischemia, may indicate other etiologiesof cardiac damage. 99th Percentile Cutoff for Negative/Positive: Negative <= 0.03 Positive >= 0.04 CMP Reviewed date:04/25/2024 11:56:11 AM Interpretation: Performing Lab: Notes/Report: [address] [address]Kndfay Xed338555-649 mmol/LPotassium Lvl3.23.4-4.8 mmol/L Xuzlpbkq1066-687 mmol/WXO48982-58 mmol/LAnion Wsh32-67Vykyjxe Nwr0447-79 mg/dL FHA030-08 mg/dLCreatinine Lvl1.300.61-1.24 mg/dLBUN Crea Ratio19.210.0-20.0Bili Total0.80.3-1.2 mg/dLAlk Wtue63758-44 IU/KEWU9172-57 IU/YADE5903-99 IU/LTotal Protein6.66.5-8.1 g/dLAlbumin Lvl3.03.2-4.9 g/dLAG Ratio0.81.1-2.2Calcium Lvl8.5 8.5-10.3 mg/dLPhosphorus Reviewed date:04/25/2024 11:56:11 AM Interpretation: Performing Lab: Notes/Report: [address] [address]Sxtnkqnesc0.12.5-4.6 mg/dLBNP Reviewed date:04/25/2024 11:56:06 AM Interpretation: Performing Lab: Notes/Report: [address] [address]XJI4664-595 pg/mLSurgery Scheduling (Not yet reviewed by provider) Interpretation:Pre-Op orders: CBC,BMP,PT/PTT, TYPE AND SCREEN,EKG,Chest X- ray,MRSA PCR NASAL SWAB Performing Lab: Notes/Report: Pre-Op orders: CBC,BMP,PT/PTT, TYPE AND SCREEN,EKG,Chest X-ray,MRSA PCR NASAL SWABPrimary Insurance Company:MEDICARESurgeon/Assist:KILO SAGE/AMIE OR GUSTABO [facility] @ 3PMHosp arrival time day of: 1PMSurgery End Time:5:30PMProcedure:L2-5 DECOMPRESSION AND NON INSTRUMENTED FUSIONSpecial Equipment:SEP, PRONE, ANABELLA TABLE, SURGALIGNDiagnosis:M51.36 DDD LUMB ARAdmission Type:OUTPATIENTAnesthesia Type/CPNB:GENERALPost-op Appointment Date:04/13/24 @ 9:20AM BELLEVUELab Location[facility] OR [facility] Date/Time:ON OR BEFORE 02/09/24Scheduler:CARLOSlearmichelle Physician:CHEIKH GA 02/13/24 @ 8:45AM Clearance Appt Date/CRISTO MEYER 02/16/24 @ 2:50PMHistory & Physical Appointment Date/:02/10/24 @ 9:10AM KELLIE.eGFR Reviewed date:04/25/2024 11:56:06 AM Interpretation: Performing Lab: Notes/Report: [address] [address]Wtkuirsuz GFR55>=60 mL/min/1.73m? [facility] have implemented the eGFR calculation approach that does not have a coefficient for race and that conforms to the NKF-ASN Task Force Recommendations. Stages of Chronic Kidney Disease GFR Stage 3a Mild to moderate loss of kidney function 59 to 45 Stage 3b Moderate to severe loss of kidney function 44 to 33 Stage 4 Severe loss of kidney function 29 to 15 Stage 5 Kidney failure Less than 15 GFR calculated using the CKD-Epi Creatinine Equation (2020): eGFR = 142 X min(SCr/?, 1)? X max(SCr /?, 1)-1.200 X 0.9938Age X 1.012 [if female] Abbreviations/Units: eGFR (estimated glomerular filtration rate) = mL/min/1.73 m2 SCr (standardized serum creatinine) = mg/dL ? = 0.7 (females) or 0.9 (males) ? = -0.241 (females) or -0.302 (males) min = indicates the minimum of SCr/? or 1 max = indicates the maximum of SCr/? or 1 Age = years Surgery Scheduling (Not yet reviewed by provider) Interpretation: Performing Lab: Notes/Report: Primary Insurance Company:MEDICARESurgeon/Assist:ST SAGE/ AMIE OR GUSTABO [facility] Date & Time:04/13/24 @ 10:30AMHosp arrival time day of:9:30AMSurgery End Time:12:00PMProcedure:LUMBAR I &DSpecial Equipment: MIRIAN,ANABELLA TABLEAdmission Type:INPATIENTAnesthesia Type/CPNB:GENERALPost-op Appointment Date:05/25/24 @ 10:30AM Yulyuler:Leno Physician: CLEAREDHistory & Physical Appointment Date/:04/13/24CBC w/ Diff Reviewed date:04/25/2024 11:56:11 AM Interpretation: Performing Lab: Notes/Report: [facility] [address] [place] [address]QLL0.74.5-11.0 x10*3/mcLRBC2.784.30-5.80 x10*6/mcLHgb8.913.5- 17.5 g/dLHct26.741.0-53.0 %MCV96.180.0-100.0 fLMCH32.227.0-35.0 inCPPQ94.531.0- 37.0 %Vxdrsanf834467-815 x10*3/ixTHUZ99.711.6-14.8 %Mean Platelet Volume6.76.7- 10.6 fLDiff Auto Reviewed date:04/25/2024 11:56:11 AM Interpretation: Performing Lab: Notes/Report: [address] [address]Vteaio Auto63.447.2-70.8 %Lymph Auto25.527.2-40.8 %[place] Auto6.5 4.7-13.9 %Eos Auto3.90.0-6.1 %Basophil Auto0.70.0-1.2 %Neutro Absolute5.51.8-7.7 x10*3/mcLLymph Absolute2.21.0-4.8 x10*3/mcLMono Absolute0.60.3-1.1 x10*3/mcLEos Absolute0.30.0-0.4 x10*3/mcLBaso Absolute0.10.0-0.2 x10*3/mcLC Bld Reviewed date:04/20/2024 08:42:56 AM Interpretation: Performing Lab: Notes/Report: [address] [address]Gdnd Patient Name: Tavo Wallis : 1940 [facility] C BldSee Below For Report Final No growth at 5 days. C Bld Reviewed date:04/20/2024 08:42:56 AM Interpretation: Performing Lab: Notes/Report: [address] [address]Azod Patient Name: Tavo Wallis : 1940 [facility] C BldSee Below For Report Final No growth at 5 days. .AMI 2 Hr Reviewed date:04/25/2024 11:56:06 AM Interpretation: Performing Lab: Notes/Report: [address] [id number] Hour Troponin<0.030.00-0.03 ng/mL An increased Troponin-I value, in the absence of myocardial ischemia, may indicate other etiologiesof cardiac damage. 99th Percentile Cutoff for Negative/Positive: Negative <= 0.03 Positive >= 0.04 2 Hour Blspxusae18.817.4-105.7 ng/mLMRSA, PCR Reviewed date:04/16/2024 01:17:51 PM Interpretation: Performing Lab: Notes/Report: [address] [address]Lwjufqgufuh Resistant Staph aurus(MRSA)Not DetectedNot Detected Mutations or polymorphisms in primer or probe binding regions may affect detection of new or unknown MRSA variants resulting in a false negative. The [employer] Xpert MRSA Assay is a qualitative in vitro diagnostic test designed for rapid detectionof Methicillin-Resistant Staphylococcus aureus (MRSA) from nasal swabs in patients at risk for nasal colonization.The test utilizes automated real-time polymerase chain reaction (PCR) to detect MRSA DNA,because the detection of MRSA is dependent on the number of organisms present. A positive test result does not necessarily indicate the presence of viable organism. It is however,presumptive for the presence of MRSA.Test results might be affected by concurrent antibiotic therapy. Therefore, therapeutic success or failure cannot be assessed using this test because DNA might persist following antimicrobial therapy. Mutations or polymorphisms in primer or probe binding regions may affect detection of new or unknown MRSA variants resulting in a false negative result. Results from the Xpert MRSA Assay should be interpreted in conjunction with other laboratory and clinical data available to the clinician. LAB ONLY Result Called?NoCBC w/ Diff Reviewed date:04/16/2024 01:17:51 PM Interpretation: Performing Lab: Notes/Report: [address] [address]WAD7.54.5-11.0 x10*3/mcLRBC2.414.30-5.80 x10*6/mcLHgb7.713.5- 17.5 g/dLHct23.341.0-53.0 %MCV96.580.0-100.0 fLMCH32.027.0-35.0 whZLTT93.231.0- 37.0 %Xsudplpf288659-136 x10*3/ruBNQV60.411.6-14.8 %Mean Platelet Volume6.96.7- 10.6 fLBasic Metabolic Profile Reviewed date:04/16/2024 01:17:51 PM Interpretation: Performing Lab: Notes/Report: [address] [address]Duanuw Sha106025-199 mmol/LPotassium Lvl3.63.4-4.8 mmol/L Ptnimxgb3489-759 mmol/QSM20271-62 mmol/LAnion Gfo48-96Krdzjbe Rif7024-28 mg/dL YLV045-21 mg/dLCreatinine Lvl1.510.61-1.24 mg/dLBUN Crea Ratio15.210.0-20.0 Calcium Lvl8.58.5-10.3 mg/dLMagnesium Reviewed date:04/16/2024 01:17:51 PM Interpretation: Performing Lab: Notes/Report: [address] [address]Waywzszkt Lvl2.01.7-2.4 mg/dL.eGFR Reviewed date:04/16/2024 01:17:51 PM Interpretation: Performing Lab: Notes/Report: [address] [address]Wkdycbhye GFR46>=60 mL/min/1.73m? [facility] have implemented the eGFR calculation approach that does not have a coefficient for race and that conforms to the NKF-ASN Task Force Recommendations. Stages of Chronic Kidney Disease GFR Stage 3a Mild to moderate loss of kidney function 59 to 45 Stage 3b Moderate to severe loss of kidney function 44 to 33 Stage 4 Severe loss of kidney function 29 to 15 Stage 5 Kidney failure Less than 15 GFR calculated using the CKD-Epi Creatinine Equation (2020): eGFR = 142 X min(SCr/?, 1)? X max(SCr /?, 1)-1.200 X 0.9938Age X 1.012 [if female] Abbreviations/Units: eGFR (estimated glomerular filtration rate) = mL/min/1.73 m2 SCr (standardized serum creatinine) = mg/dL ? = 0.7 (females) or 0.9 (males) ? = -0.241 (females) or -0.302 (males) min = indicates the minimum of SCr/? or 1 max = indicates the maximum of SCr/? or 1 Age = years Hgb Reviewed date:04/18/2024 07:51:19 AM Interpretation: Performing Lab: Notes/Report: [address] [address]Jdt5.013.5-17.5 g/dLHct26.141.0-53.0 %Diff Auto Reviewed date:04/16/2024 01:17:51 PM Interpretation: Performing Lab: Notes/Report: [address] [address]Clebtd Auto55.647.2-70.8 %Lymph Auto33.227.2-40.8 %[place] Auto6.6 4.7-13.9 %Eos Auto3.80.0-6.1 %Basophil Auto0.80.0-1.2 %Neutro Absolute4.11.8-7.7 x10*3/mcLLymph Absolute2.51.0-4.8 x10*3/mcLMono Absolute0.50.3-1.1 x10*3/mcLEos Absolute0.30.0-0.4 x10*3/mcLBaso Absolute0.10.0-0.2 x10*3/mcLB12 Reviewed date:04/16/2024 01:17:51 PM Interpretation: Performing Lab: Notes/Report: [address] [address]Teoqeqb B12 Bie132977-600 pg/mLABO/Rh Reviewed date:04/16/2024 01:17:51 PM Interpretation: Performing Lab: Notes/Report: [facility] (UNKNOWN) [address] [place] [address]SAV/RhABO/Rh: O POSABSC Auto Reviewed date:04/16/2024 01:17:51 PM Interpretation: Performing Lab: Notes/Report: [facility] (UNKNOWN) [address] [place] [address]KIBZ AutoAntibody Screen: Negative ABSCFolate Lvl Reviewed date:04/16/2024 01:17:51 PM Interpretation: Performing Lab: Notes/Report: [address] [address]Jfjwxn Lvl5.9>=5.9 ng/mLA WHO Technical Consultation has determined that deficient Folate concentrations are considered to be less than 4 ng/mL.Retic Count Reviewed date:04/16/2024 01:17:51 PM Interpretation: Performing Lab: Notes/Report: [address] [address]Gwn32.041.0-53.0 %Reticulocyte1.60.8-2.5 %Ret Abs0.0370 Corrected Retic Count0.820.80-2.50 %Ferritin Reviewed date:04/16/2024 01:17:51 PM Interpretation: Performing Lab: Notes/Report: [address] [address]Kqonrpvf Tnr162.523.9-336.2 ng/mLTIBC Reviewed date:04/16/2024 01:17:51 PM Interpretation: Performing Lab: Notes/Report: [address] [address]Nvbx Sat11.6>=16.0 %PZKB156614-418 mcg/oQXizskerajmh430029-738 mg/tMZvrh1931-339 mcg/dLCBC w/ Diff Reviewed date:04/18/2024 07:51:19 AM Interpretation: Performing Lab: Notes/Report: [address] [address]XZB0.64.5-11.0 x10*3/mcLRBC2.844.30-5.80 x10*6/mcLHgb9.013.5- 17.5 g/dLHct26.441.0-53.0 %MCV93.080.0-100.0 fLMCH31.827.0-35.0 yjIOJG33.231.0- 37.0 %Ljwvfaif274209-266 x10*3/kqQKGD32.711.6-14.8 %Mean Platelet Volume6.56.7- 10.6 fLDiff Auto Reviewed date:04/18/2024 07:51:19 AM Interpretation: Performing Lab: Notes/Report: [address] [address]Uemygl Auto54.947.2-70.8 %Lymph Auto28.727.2-40.8 %[place] Auto9.7 4.7-13.9 %Eos Auto5.40.0-6.1 %Basophil Auto1.30.0-1.2 %Neutro Absolute3.11.8-7.7 x10*3/mcLLymph Absolute1.61.0-4.8 x10*3/mcLMono Absolute0.50.3-1.1 x10*3/mcLEos Absolute0.30.0-0.4 x10*3/mcLBaso Absolute0.10.0-0.2 x10*3/mcLSodium Reviewed date:04/18/2024 07:51:19 AM Interpretation: Performing Lab: Notes/Report: [address] [address]Zvrxwf Xwh852101-113 mmol/LMagnesium Reviewed date:04/18/2024 07:51:19 AM Interpretation: Performing Lab: Notes/Report: [address] [address]Ssxjtabjc Lvl2.01.7-2.4 mg/dLBasic Metabolic Profile Reviewed date:04/18/2024 07:51:19 AM Interpretation: Performing Lab: Notes/Report: [address] [address]Kqbzlo Fsv591943-451 mmol/LPotassium Lvl3.73.4-4.8 mmol/L Ghqlhvrn08537-268 mmol/DXS63917-28 mmol/LAnion Iea63-32Plymvjh Jxh6042-86 mg/dL LEM360-77 mg/dLCreatinine Lvl1.370.61-1.24 mg/dLBUN Crea Ratio14.610.0-20.0 Calcium Lvl8.48.5-10.3 mg/dL.eGFR Reviewed date:04/18/2024 07:51:19 AM Interpretation: Performing Lab: Notes/Report: [address] [address]Ugidyogaq GFR52>=60 mL/min/1.73m? [facility] have implemented the eGFR calculation approach that does not have a coefficient for race and that conforms to the NKF-ASN Task Force Recommendations. Stages of Chronic Kidney Disease GFR Stage 3a Mild to moderate loss of kidney function 59 to 45 Stage 3b Moderate to severe loss of kidney function 44 to 33 Stage 4 Severe loss of kidney function 29 to 15 Stage 5 Kidney failure Less than 15 GFR calculated using the CKD-Epi Creatinine Equation (2020): eGFR = 142 X min(SCr/?, 1)? X max(SCr /?, 1)-1.200 X 0.9938Age X 1.012 [if female] Abbreviations/Units: eGFR (estimated glomerular filtration rate) = mL/min/1.73 m2 SCr (standardized serum creatinine) = mg/dL ? = 0.7 (females) or 0.9 (males) ? = -0.241 (females) or -0.302 (males) min = indicates the minimum of SCr/? or 1 max = indicates the maximum of SCr/? or 1 Age = years Vanco Trough Reviewed date:04/18/2024 07:51:19 AM Interpretation: Performing Lab: Notes/Report: [address] [address]Olchh Ifdeca73.810.0-15.0 mcg/mLHgb Reviewed date:04/18/2024 07:51:19 AM Interpretation: Performing Lab: Notes/Report: [address] [address]Brk7.113.5-17.5 g/dLHct27.241.0-53.0 %CBC w/ Diff Reviewed date:04/18/2024 11:33:44 AM Interpretation: Performing Lab: Notes/Report: [address] [address]UBH2.54.5-11.0 x10*3/mcLRBC2.904.30-5.80 x10*6/mcLHgb8.913.5- 17.5 g/dLHct26.841.0-53.0 %MCV92.680.0-100.0 fLMCH30.627.0-35.0 agSNWO83.131.0- 37.0 %Kqojmbtw945740-710 x10*3/fzVTJP38.111.6-14.8 %Mean Platelet Volume6.96.7- 10.6 fLMagnesium Reviewed date:04/18/2024 11:33:44 AM Interpretation: Performing Lab: Notes/Report: [address] [address]Ferqtdgnr Lvl1.81.7-2.4 mg/dLCRP Reviewed date:04/18/2024 11:33:44 AM Interpretation: Performing Lab: Notes/Report: [address] [address]SHF50.600.00-0.75 mg/dL CRP measurement is useful for assessment of non-specific INFLAMMATORY RESPONSE to infection or injury AND is a sensitive MARKER of ACUTE INFLAMMATION including CARDIAC RISK ASSESSMENT. CARDIAC patients with elevated CRP are POTENTIALLY at a HIGHER RISK OF FUTURE CARDIAC EVENTS. Severiano SAUL Reviewed date:04/25/2024 11:56:06 AM Interpretation: Performing Lab: Notes/Report: [address] [address]Tdka Patient Name: Tavo Wallis : 1940 [facility] Severiano SALUSee Below For Report Final No anaerobic growth after 72 hrs. Diff Auto Reviewed date:04/18/2024 11:33:44 AM Interpretation: Performing Lab: Notes/Report: [address] [address]Lulubn Auto53.747.2-70.8 %Lymph Auto32.027.2-40.8 %[place] Auto9.7 4.7-13.9 %Eos Auto4.00.0-6.1 %Basophil Auto0.60.0-1.2 %Neutro Absolute4.51.8-7.7 x10*3/mcLLymph Absolute2.71.0-4.8 x10*3/mcLMono Absolute0.80.3-1.1 x10*3/mcLEos Absolute0.30.0-0.4 x10*3/mcLBaso Absolute0.10.0-0.2 x10*3/mcLXR Chest 1 View Reviewed date:04/18/2024 11:33:44 AM Interpretation: Performing Lab: Notes/Report: Patient Name: Tavo Wallis CLINICAL HISTORY: Worsening dyspnea.C Sterile BS Reviewed date:04/25/2024 11:56:06 AM Interpretation: Performing Lab: Notes/Report: [facility] (DEFAULT) [address] [facility] [place] [address] [facility] [address] [place], [place] [address]Ybik Patient Name: Tavo Wallis : 1940 [facility] C Sterile BSSee Below For Report Final Light Growth of Pseudomonas aeruginosa isolated ORGANISM PA SUSCEPTIBILITY ORGANISM ID: 1 ANTIBIOTIC INTERPRETATION BELLA STATUS SUSCEPTIBILITY ORGANISM ID: 1 ANTIBIOTIC INTERPRETATION BELLA STATUS C Sterile BS Final Light Growth of Pseudomonas aeruginosa isolated ORGANISM PA SUSCEPTIBILITY ORGANISM ID: 1 ANTIBIOTIC INTERPRETATION BELLA STATUS SUSCEPTIBILITY ORGANISM ID: 1 ANTIBIOTIC INTERPRETATION BELLA STATUS C Sterile BSSee Below For Report Final Light Growth of Pseudomonas aeruginosa isolated ORGANISM PA SUSCEPTIBILITY ORGANISM ID: 1 ANTIBIOTIC INTERPRETATION BELLA STATUS SUSCEPTIBILITY ORGANISM ID: 1 ANTIBIOTIC INTERPRETATION BELLA STATUS C Sterile BSSee Below For Report Final Light Growth of Pseudomonas aeruginosa isolated ORGANISM PA SUSCEPTIBILITY ORGANISM ID: 1 ANTIBIOTIC INTERPRETATION BELLA STATUS SUSCEPTIBILITY ORGANISM ID: 1 ANTIBIOTIC INTERPRETATION BELLA STATUS C Sterile BSPOS Pseudomonas aeruginosa Final Light Growth of Pseudomonas aeruginosa isolated ORGANISM PA SUSCEPTIBILITY ORGANISM ID: 1 ANTIBIOTIC INTERPRETATION BELLA STATUS SUSCEPTIBILITY ORGANISM ID: 1 ANTIBIOTIC INTERPRETATION BELLA STATUS C Sterile BSCeftazidime S 4 V Final Light Growth of Pseudomonas aeruginosa isolated ORGANISM PA SUSCEPTIBILITY ORGANISM ID: 1 ANTIBIOTIC INTERPRETATION BELLA STATUS SUSCEPTIBILITY ORGANISM ID: 1 ANTIBIOTIC INTERPRETATION BELLA STATUS C Sterile BSCiprofloxacin I 1 V Final Light Growth of Pseudomonas aeruginosa isolated ORGANISM PA SUSCEPTIBILITY ORGANISM ID: 1 ANTIBIOTIC INTERPRETATION BELLA STATUS SUSCEPTIBILITY ORGANISM ID: 1 ANTIBIOTIC INTERPRETATION BELLA STATUS C Sterile BSLevofloxacin R 4 V Final Light Growth of Pseudomonas aeruginosa isolated ORGANISM PA SUSCEPTIBILITY ORGANISM ID: 1 ANTIBIOTIC INTERPRETATION BELLA STATUS SUSCEPTIBILITY ORGANISM ID: 1 ANTIBIOTIC INTERPRETATION BELLA STATUS C Sterile BSMeropenem S 1 V Final Light Growth of Pseudomonas aeruginosa isolated ORGANISM PA SUSCEPTIBILITY ORGANISM ID: 1 ANTIBIOTIC INTERPRETATION BELLA STATUS SUSCEPTIBILITY ORGANISM ID: 1 ANTIBIOTIC INTERPRETATION BELLA STATUS C Sterile BSPiperacillin/Tazobactam S 16 V Final Light Growth of Pseudomonas aeruginosa isolated ORGANISM PA SUSCEPTIBILITY ORGANISM ID: 1 ANTIBIOTIC INTERPRETATION BELLA STATUS SUSCEPTIBILITY ORGANISM ID: 1 ANTIBIOTIC INTERPRETATION BELLA STATUS C Sterile BSSee Below For Report Final Light Growth of Pseudomonas aeruginosa isolated ORGANISM PA SUSCEPTIBILITY ORGANISM ID: 1 ANTIBIOTIC INTERPRETATION BELLA STATUS SUSCEPTIBILITY ORGANISM ID: 1 ANTIBIOTIC INTERPRETATION BELLA STATUS C Sterile BSPOS Pseudomonas aeruginosa Final Light Growth of Pseudomonas aeruginosa isolated ORGANISM PA SUSCEPTIBILITY ORGANISM ID: 1 ANTIBIOTIC INTERPRETATION BELLA STATUS SUSCEPTIBILITY ORGANISM ID: 1 ANTIBIOTIC INTERPRETATION BELLA STATUS C Sterile BSCefepime S V Final Light Growth of Pseudomonas aeruginosa isolated ORGANISM PA SUSCEPTIBILITY ORGANISM ID: 1 ANTIBIOTIC INTERPRETATION BELLA STATUS SUSCEPTIBILITY ORGANISM ID: 1 ANTIBIOTIC INTERPRETATION BELLA STATUS .eGFR Reviewed date:04/20/2024 08:42:56 AM Interpretation: Performing Lab: Notes/Report: [facility] [address] [place], [place] [address]Nqvwwmyls GFR52>=60 mL/min/1.73m? [facility] have implemented the eGFR calculation approach that does not have a coefficient for race and that conforms to the NKF-ASN Task Force Recommendations. Stages of Chronic Kidney Disease GFR Stage 3a Mild to moderate loss of kidney function 59 to 45 Stage 3b Moderate to severe loss of kidney function 44 to 33 Stage 4 Severe loss of kidney function 29 to 15 Stage 5 Kidney failure Less than 15 GFR calculated using the CKD-Epi Creatinine Equation (2020): eGFR = 142 X min(SCr/?, 1)? X max(SCr /?, 1)-1.200 X 0.9938Age X 1.012 [if female] Abbreviations/Units: eGFR (estimated glomerular filtration rate) = mL/min/1.73 m2 SCr (standardized serum creatinine) = mg/dL ? = 0.7 (females) or 0.9 (males) ? = -0.241 (females) or -0.302 (males) min = indicates the minimum of SCr/? or 1 max = indicates the maximum of SCr/? or 1 Age = years Basic Metabolic Profile Reviewed date:04/18/2024 11:33:44 AM Interpretation: Performing Lab: Notes/Report: [address] [address]Uduetr Bgy677822-133 mmol/LPotassium Lvl3.93.4-4.8 mmol/L Yftbaddr3208-626 mmol/DXN84587-96 mmol/LAnion Cxc63-91Cklyzyo Ykv8882-50 mg/dL LWD201-37 mg/dLCreatinine Lvl1.450.61-1.24 mg/dLBUN Crea Ratio13.110.0-20.0 Calcium Lvl8.38.5-10.3 mg/dL.eGFR Reviewed date:04/18/2024 11:33:44 AM Interpretation: Performing Lab: Notes/Report: [address] [address]Ejbwienbe GFR48>=60 mL/min/1.73m? [facility] have implemented the eGFR calculation approach that does not have a coefficient for race and that conforms to the NKF-ASN Task Force Recommendations. Stages of Chronic Kidney Disease GFR Stage 3a Mild to moderate loss of kidney function 59 to 45 Stage 3b Moderate to severe loss of kidney function 44 to 33 Stage 4 Severe loss of kidney function 29 to 15 Stage 5 Kidney failure Less than 15 GFR calculated using the CKD-Epi Creatinine Equation (2020): eGFR = 142 X min(SCr/?, 1)? X max(SCr /?, 1)-1.200 X 0.9938Age X 1.012 [if female] Abbreviations/Units: eGFR (estimated glomerular filtration rate) = mL/min/1.73 m2 SCr (standardized serum creatinine) = mg/dL ? = 0.7 (females) or 0.9 (males) ? = -0.241 (females) or -0.302 (males) min = indicates the minimum of SCr/? or 1 max = indicates the maximum of SCr/? or 1 Age = years Magnesium Reviewed date:04/20/2024 08:42:56 AM Interpretation: Performing Lab: Notes/Report: [address] [address]Gcojhajih Lvl2.11.7-2.4 mg/dLESR Reviewed date:04/18/2024 11:33:44 AM Interpretation: Performing Lab: Notes/Report: [address], [place] [address]Qtv Fvlf879-90 mm/hrRespiratory Pathogens Panel Reviewed date:04/20/2024 08:42:56 AM Interpretation: Performing Lab: Notes/Report: [address], [place] [address]Axenttcnp ANot DetectedNot DetectedInfluenza A/H1Not Detected Not DetectedInfluenza A/H3Not DetectedNot DetectedInfluenza BNot DetectedNot DetectedRSV ANot DetectedNot DetectedRSV BNot DetectedNot DetectedAdenovirus.Not DetectedNot DetectedhMPVNot DetectedNot DetectedParainfluenza 1Not DetectedNot DetectedParainfluenza 2Not DetectedNot DetectedParainfluenza 3Not DetectedNot DetectedParainfluenza 4Not DetectedNot DetectedRhinovirusNot DetectedNot DetectedDue to the genetic similarity between human rhinovirus and enterovirus, some strains of enterovirusmay be detected as rhinovirus by this assay. Bordatella para/bronchNot DetectedNot DetectedBordatella pertussisNot Detected Not DetectedBordatella holmesiiNot DetectedNot Detected Testing was performed using nucleic acid amplification including Influenza A, Influenza A/H1, Influenza A/H3, Influenza B, RSV A, RSV B, Adenovirus, Human Metapneumovirus, Parainfluenza 1, 2, 3, 4, Rhinovirus, Bordatella parapertussis / bronchiseptica, Bordatella holmesii, Bordatella pertussis. Results from the [facility] Respiratory Pathogens Panel should be interpreted with other laboratory and clinical data available to the clinician. Negative results do not preclude viral and / or bacterial infection and should not be used as the sole basis for treatment or other patient management decisions. A false negative may occur if the virus and / or bacteria is present at levels below the hiwot tical level of detection. Recent vaccination with the intra-nasal Influenza vaccine may produce false positive results for Influenza A and / or Influenza B. Basic Metabolic Profile Reviewed date:04/20/2024 08:42:56 AM Interpretation: Performing Lab: Notes/Report: [address] [address]Rbacac Gfl577588-179 mmol/LPotassium Lvl3.83.4-4.8 mmol/L Wamocbxn2318-746 mmol/NNV41483-37 mmol/LAnion Xim24-74Godljbt Trj3289-14 mg/dL VOF989-70 mg/dLCreatinine Lvl1.370.61-1.24 mg/dLBUN Crea Ratio14.610.0-20.0 Calcium Lvl8.58.5-10.3 mg/dLCBC w/ Diff Reviewed date:04/20/2024 08:42:56 AM Interpretation: Performing Lab: Notes/Report: [address] [address]TMJ1.94.5-11.0 x10*3/mcLRBC2.964.30-5.80 x10*6/mcLHgb9.313.5- 17.5 g/dLHct27.441.0-53.0 %MCV92.480.0-100.0 fLMCH31.427.0-35.0 utLHHI33.031.0- 37.0 %Kvqudpmv530802-602 x10*3/tsVPUY78.111.6-14.8 %Mean Platelet Volume7.26.7- 10.6 fLDiff Auto Reviewed date:04/20/2024 08:42:56 AM Interpretation: Performing Lab: Notes/Report: [address] [address]Tfsayt Auto50.147.2-70.8 %Lymph Auto32.327.2-40.8 %[place] Auto 11.24.7-13.9 %Eos Auto5.90.0-6.1 %Basophil Auto0.50.0-1.2 %Neutro Absolute3.5 1.8-7.7 x10*3/mcLLymph Absolute2.21.0-4.8 x10*3/mcLMono Absolute0.80.3-1.1 x10*3/mcLEos Absolute0.40.0-0.4 x10*3/mcLBaso Absolute0.00.0-0.2 x10*3/mcL.eGFR Reviewed date:04/20/2024 08:42:56 AM Interpretation: Performing Lab: Notes/Report: [address] [address]Fouuvknyx GFR57>=60 mL/min/1.73m? [facility] have implemented the eGFR calculation approach that does not have a coefficient for race and that conforms to the NKF-ASN Task Force Recommendations. Stages of Chronic Kidney Disease GFR Stage 3a Mild to moderate loss of kidney function 59 to 45 Stage 3b Moderate to severe loss of kidney function 44 to 33 Stage 4 Severe loss of kidney function 29 to 15 Stage 5 Kidney failure Less than 15 GFR calculated using the CKD-Epi Creatinine Equation (2020): eGFR = 142 X min(SCr/?, 1)? X max(SCr /?, 1)-1.200 X 0.9938Age X 1.012 [if female] Abbreviations/Units: eGFR (estimated glomerular filtration rate) = mL/min/1.73 m2 SCr (standardized serum creatinine) = mg/dL ? = 0.7 (females) or 0.9 (males) ? = -0.241 (females) or -0.302 (males) min = indicates the minimum of SCr/? or 1 max = indicates the maximum of SCr/? or 1 Age = years CBC w/ Diff Reviewed date:04/20/2024 08:42:56 AM Interpretation: Performing Lab: Notes/Report: [address] [address]QRO2.04.5-11.0 x10*3/mcLRBC2.934.30-5.80 x10*6/mcLHgb9.113.5- 17.5 g/dLHct27.241.0-53.0 %MCV92.980.0-100.0 fLMCH31.127.0-35.0 bjVZRW53.531.0- 37.0 %Noiauusz258993-332 x10*3/vwIDFJ19.611.6-14.8 %Mean Platelet Volume7.06.7- 10.6 fLDiff Auto Reviewed date:04/20/2024 08:42:56 AM Interpretation: Performing Lab: Notes/Report: [address] [address]Lcgzfl Auto49.447.2-70.8 %Lymph Auto32.327.2-40.8 %[place] Auto9.0 4.7-13.9 %Eos Auto8.70.0-6.1 %Basophil Auto0.60.0-1.2 %Neutro Absolute3.01.8-7.7 x10*3/mcLLymph Absolute1.91.0-4.8 x10*3/mcLMono Absolute0.50.3-1.1 x10*3/mcLEos Absolute0.50.0-0.4 x10*3/mcLBaso Absolute0.00.0-0.2 x10*3/mcLMagnesium Reviewed date:04/20/2024 08:42:56 AM Interpretation: Performing Lab: Notes/Report: [address] [address]Duanvtliw Lvl2.11.7-2.4 mg/dLBasic Metabolic Profile Reviewed date:04/20/2024 08:42:56 AM Interpretation: Performing Lab: Notes/Report: [address] [address]Cmkuqi Psk018646-684 mmol/LPotassium Lvl3.73.4-4.8 mmol/L Uqobjmjw6400-229 mmol/DHJ00342-48 mmol/LAnion Wfu66-69Xjsbvgz Sxu2650-89 mg/dL MIM922-22 mg/dLCreatinine Lvl1.250.61-1.24 mg/dLBUN Crea Ratio15.210.0-20.0 Calcium Lvl8.68.5-10.3 mg/dL Reason For Referral Reason NO AUTH REQ...............................02/21/24.................................MCR/A NTHEM L2-5 DECOMPRESSION AND NON INSTRUMENTED FUSION 38594, 44780 x2, 30597, 85366 x3, 93782 Diagnos is 1 Lumbar stenosis with neurogenic claudica tion (M48.062) Diagnos is 2 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) Referra sharon [facility]der[facility] Referri ng Provide r First Name Thuzhane Referri ng Provide r Last Name [place] Referri ng Provide r Special ity Orthopedic Surgery Referre d Organiz [facility] Referre d Address [address], [place],[id number],[place] Procedu re 1 Arthrodesis, posterior lumbar, 1 lumbar level (66394) Procedu re 2 Arthrodesis single, each addn'l level, p osteriolateral technique (22305) Procedu re 3 Laminectomy, facetectomy and foraminotom y single lumbar (35981) Procedu re 4 Laminectomy, facetectomy and foraminotom y additional vertebral segment (43473) Procedu re 5 Autograft for spine surgery only; local obtained from same incision (41171) General Notes Ania Gilmore 01/19/2024 11:12:49 AM >, Shobha Stanton 01/19/2024 12:15:50 PM > MEDICARE PARTS A & B ACTIVE AND EFFECTIVE 07/05/06 PER [employer]AILITY WITH [employer]M SECONDARY. NO AUTHORIZATION REQUIRED. NONE OF THE CODES PROVIDED ARE ON THE MEDICARE INPATIENT LIST. CAN YOU PLEASE SWITCH TO OUTPATIENT AND SEND BACK SO I CAN FAX OVER TO [facility]?, Ania Gilmore 01/24/2024 03:14:26 PM >CHANGED TO OUTPATIENT, Shobha Stanton 01/24/2024 03:15:38 PM > THANK YOU, FAXED TO [facility]. Referra l Priorit y Routine Reason BONE STIM Diagnosis 1 Anterolisthesis of l umbar spine (M43.16) Referral Organization [facility] Referring Provider First Name Randi Referring Provider Last Name [facility] Referring Provider Speciality Orthopedic Surgery Referred Organization [facility] Referred Address [address] [place] [place], [place],[address],[place] General Notes Viridiana Mehta 02/10/2024 11:35:01 AM > ALL CLINICAL SENT TO [facility] FOR BONE STIM Referral Priority Routine Reason NO AUTH REQ......... .............................NOT SCHEDULED.................................MCR/SUSIEEM MRI LUMBAR TO BE DONE AT [facility] Diagnosis 1 Aftercare following surgery of the musculoskeletal system (Z47.89) Referral Organization [facility] Referring Provider First Name Randi Referring Provider Last Name [facility] S[facility] Referring Provider Speciality Orthopedic Surgery Referred Organization [facility] Central Scheduling Referred Address [address] [place],[address],[place] Procedure 1 MRI Lumbar Spine w/o Dye (34388) General Notes Ania Gilmore 2024 10:07:48 AM >, Shobha Stanton 03/23/2024 10:13:34 AM > MEDICARE PARTS A & B ACTIVE AND EFFECTIVE 07/05/06 PER [employer] WITH [employer]THEM SECONDARY. NO AUTHORIZATION REQUIRED. FAXED TO FACILITY., Yoli Cruz 03/26/2024 11:58:10 AM > order faxed Referral Priority Routine Reason NO AUTH REQ..............................04/13/24................................DEB/LUCIUS M LUMBAR I & [place] [address] [place] [address] [place] [address] no dictation available Diagnos is 1 Wound dehiscence (T81.30XA) Referra l [facility] Referri ng Provide r First Name Tabathamerna austin Provide r Last Name [facility] Sage Referri geovanna Provide r Special ity Orthopedic Surgery Referre d [facility] Referre d Address [address] [place], [place],[address],[place] Procedu re 1 Incision and drainage of hematoma seroma or fluid collection (55709) Procedu re 2 Incision and drainage complex po wound i nfection (48168) Procedu re 3 Secondary closure surgical wound or dehi scence, ext or comp (54912) General Notes Ania Gilmore 04/12/2024 02:02:58 PM >, Ania Gilmore 04/12/2024 02:41:05 PM >PATIENT WAS SEEN IN THE OFFICE 03/23, MRI ORDERED AND BEING SEEN IN THE OFFICE TOMORROW, Shobha Stanton 04/12/2024 02:45:29 PM > MEDICARE PARTS A & B ACTIVE AND EFFECTIVE 07/05/06 PER [employer]AILITY WITH [employer] SECONDARY. NO AUTHORIZATION REQUIRED. FAXED TO [facility]., Mando Ania 04/16/2024 09:09:49 AM >SURGERY WAS CANCELLED. PATIENT ADMITTED FOR OTHER ISSUES AND THEN TRANSFERRED TO [facility] AND WILL BE DONE TOMORROW MORNING, Shobha Stanton 04/16/2024 09:14:49 AM > NOTED, THANK YOU. Referra l Priorit y Stat Medications Medication SIG (Take, Route, Frequency, Duration) Notes Start Date End Date Status Oxycodone Activepotassium chlorideActivelevothyroxineActivemagnesium oxideActivebumetanide ActiveeszopicloneActiveatorvastatinActiveallopurinolActiveEliquisActivetraZODone ActiveFlexeril 10 mg1 tab(s) orally 3 times a day5Activepramipexole ActiveFlexeril 10 mg1 tab(s) orally 3 times a day prn muscle eybvjj9104/22/2023 Active Social History Tobacco Use: Social History Observation Description Date Details (start date - stop date) Former Smoker NA - NA AUDIT-C (Standard) Question Answer Notes Did you have a drink containing alcohol in the p ast year? Yes How often did you have six or more drinks on one occasion in the past year? Declined to specify (0 point)How many drinks did you have on a typical day when you were drinking in the past year?3 or 4 drinks (1 point)How often did you have a drink containing alcohol in the past year?Declined to specify (0 point)Points1 InterpretationNegativeTobacco Control (Standard) Question Answer Notes Tobacco use: Former smoker Problems Problem Type SNOMED Code ICD Code Onset Dates Problem Status W/U Status Risk Notes Problem 201049291 Arthrodesis status (Z98.1) ActiveconfirmedProblemDehiscence of surgical wound (60290095)Disruption of external operation (surgical) wound, 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, initial encounter (T81.31XA)YijqkrtqrykafjkApflgrk963843727Snloyzkssoyvqd seroma of skin and subcutaneous tissue following other procedure (L76.34)ActiveconfirmedProblem Arachnoiditis (1265755)Arachnoiditis (G03.9)ActiveconfirmedProblemSpinal stenosis of lumbar region (32376201)Spinal stenosis, lumbar region without neurogenic claudication (M48.061)IvazhhxsvbsdelrIdugvwv09446293Bgrgyj stenosis with neurogenic claudication (M48.062)ActiveconfirmedProblemLeft foot drop (finding) (580702613978978)Acquired left foot drop (M21.372)Activeconfirmed Fstsqzd150052607Teqxilcoi for other orthopedic aftercare (Z47.89)Activeconfirmed ProblemAcquired spondylolisthesis (733809971)Anterolisthesis of lumbar spine (M43.16)NxhrfpkkhwotyfkFqaldov634989468Vlmagh insufficiency fracture with routine healing, subsequent encounter (M84.48XD)ActiveconfirmedProblemOther intervertebral disc degeneration, lumbar region with discogenic back pain and lower extremitypain (M51.362)Activeconfirmed Encounters Encounter Location Date Provider Diagnosis [facility] [address] [place] [address] 02/17/2024 Gustabo Diglio Anterolisthesis of lumbar spine M43.16 ; Lumbar stenosis with neurogenic claudication M48.062 and Other intervertebral disc degeneration, lumbar region with discogenic back pain and lower extremity pain M51.362 [facility] Outpatient [address] [place] [id number] 02/21/2024 Selvon [place] Spinal stenosis, lumbar region without neurogenic claudication M48.061 ; Other intervertebral disc degeneration, lumbar region with discogenic back pain and lower extremity pain M51.362 ; Anterolisthesis of lumbar spine M43.16 and Acquired left foot drop M21.372 [facility] [address] [place] [address] 03/09/2024 [facility] Encounter for other orthopedic aftercare Z47.89 and Arthrodesis status Z98.1 [facility] [address] [place] [address] 03/23/2024 [facility] Disruption of external operation (surgical) wound, 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, initial encounter T81.31XA ; Postprocedural seroma of skin and subcutaneous tissue following other procedure L76.34 ; Encounter for other orthopedic aftercare Z47.89 and Arthrodesis status Z98.1 [facility] [address] [place] [address] [place] [address] 04/13/2024 Gustabo Personlijoseph Wound dehiscence T81.30XA [facility] [address] [place], [place] [phone] 04/17/2024 Selvon [place] Disruption of external auditor al operation (surgical) wound, 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, initial encounter T81.31XA [facility] [address] [place] [address] [place] [address] 05/11/2024 [facility] Encounter for other orthopedic aftercare Z47.89 ; Disruption of external operation (surgical) wound, 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, initial encounter T81.31XA and Arthrodesis status Z98.1 [facility] [address] [place] [address] 01/25/2024 Selvon [place] Anterolisthesis of lumbar spine M43.16 and Acquired left foot drop M21.372 [facility] [address] [place] [address] 02/14/2024 Selmerna [place] [facility] [place] [address] [place] [address]/ [facility] [address] [place] [address]/Selvon [place] Assessments Encounter Date Diagnosis (ICD Code) Assessment Notes Treatment Notes Treatment Clinical Notes Section Notes 01/25/2024 Anterolisthesis of lumbar spine (ICD-10 - M43.16) 02/17/2024Lumbar stenosis with neurogenic claudication (ICD-10 - M48.062) 02/17/2024nterolisthesis of lumbar spine (ICD-10 - M43.16)02/21/2024Spinal stenosis, lumbar region without neurogenic claudication (ICD-10 - M48.061) 02/21/2024Other intervertebral disc degeneration, lumbar region with discogenic back pain and lower extremitypain (ICD-10 - M51.362)03/09/2024rthrodesis status (ICD-10 - Z98.1)1. 2 weeks s/p L2-5 revision decompression/fapnmd9203/09/2024 Encounter for other orthopedic aftercare (ICD-10 - Z47.89)1. 2 weeks s/p L2-5 revision decompression/jenzkc5604/13/2024Wound dehiscence (ICD-10 - T81.30XA)1. 6- week status post lumbar decompression and noninstrumented fusion with postoperative fluid collection, wound drainage and wound wptanifwtc94/11/2025 Disruption of external operation (surgical) wound, 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, initial encounter (ICD-10 - T81.31XA)05/11/2024Disruption of external operation (surgical) wound, 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, initial encounter (ICD-10 - T81.31XA) 1. 3 weeks s/p I&D with seroma evacuation 2. 3 months s/p L2-5 decompression and noninstrumented fusion 05/11/2024Encounter for other orthopedic aftercare (ICD-10 - Z47.89) 1. 3 weeks s/p I&D with seroma evacuation 2. 3 months s/p L2-5 decompression and noninstrumented fusion 03/23/2024Disruption of external operation (surgical) wound, 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, initial encounter (ICD-10 - T81.31XA)1. 4 weeks s/p L2-5 revision decompression and sugmdm1903/23/2024Postprocedural seroma of skin and subcutaneous tissue following other procedure (ICD-10 - L76.34)1. 4 weeks s/p L2-5 revision decompression and ngupxn7803/23/2024Encounter for other orthopedic aftercare (ICD- 10 - Z47.89)1. 4 weeks s/p L2-5 revision decompression and qdyvpi7805/11/2024 Arthrodesis status (ICD-10 - Z98.1) 1. 3 weeks s/p I&D with seroma evacuation 2. 3 months s/p L2-5 decompression and noninstrumented fusion 02/21/2024nterolisthesis of lumbar spine (ICD-10 - M43.16)02/17/2024Other intervertebral disc degeneration, lumbar region with discogenic back pain and lower extremitypain (ICD-10 - M51.362)4Acquired left foot drop (ICD-10 - M21.372)4Acquired left foot drop (ICD-10 - M21.372)03/23/2024 Arthrodesis status (ICD-10 - Z98.1)1. 4 weeks s/p L2-5 revision decompression and eakrhc9402/17/2024OtherA lumbosacral corset brace has been ordered today for the patient to begin immediate use for pain relief and support. The patient will use this brace daily for support and immobilization of the lumbar spine. The brace is necessary both prior to surgery and upon returning home from surgery to limit motion of the spine to help facilitate healing in the initial post-op period.03/09/2024Other Plan established by Dr. Man. Patient evaluated by myself and Dr. Man today. There is nodehiscence noted to his incision on exam today. There is some mild erythema surrounding the wound so I did prescribe clindamycin as he has a anaphylactic reaction to penicillin and was given cephalexin after surgery. Patient's daughter did not fill this as the pharmacist advised them not to given his allergy. I also recommended getting thigh-high SHANEKA hose and we gave him an order for this for theSNF. We will see him back in 2 weeks for another incision check. Patient's daughter will call for asooner appointment with any new or worsening symptoms if needed. The patient is very much in agreement with the treatment and/or diagnostic plan set forth and all questions were answered to the patient's satisfaction. Thanks once again. If we can be of further service to your patients with disorders of the spine, cervical, thoracic, or lumbar, please do not hesitate to contact Dr. Man. Best regards, 1. 2 weeks s/p L2-5 revision decompression/hlvvlf1203/23/2024Other Plan established by Dr. Man. Patient evaluated by myself and Dr. Man today. I have ordered an MRI of the lumbar spine today to evaluate for a postoperative fluid collection. We can see the patient back in the office after imaging is obtained to review and offer further recommendations. The patient is very much in agreement with the treatment and/or diagnostic plan set forth and all questions were answered to the patient's satisfaction. Thanks once again. If we can be of further service to your patients with disorders of the spine, cervical, thoracic, or lumbar, please do not hesitate to contact Dr. Man. Best regards, 1. 4 weeks s/p L2-5 revision decompression and fmhzxk5504/13/2024Other Plan established by Dr. Man. At this time, Dr. Man reviewed MRI imaging. He is recommending a lumbar I&D with wound closure/possible wound VAC placement. Plan is for surgical intervention today. Patient is NPO. We will send him over to the hospital. Patient may potentially need infectious disease consult and IV antibiotics. We will see him back in the postoperative setting in office. The patient is very much in agreement with the treatment and/or diagnostic plan set forth and all questions were answered to the patient's satisfaction. Thanks once again. If we can be of further service to your patients with disorders of the spine, cervical, thoracic, or lumbar, please do not hesitate to contact Dr. Man. Best regards, 1. 6-week status post lumbar decompression and noninstrumented fusion with postoperative fluid collection, wound drainage and wound uwecnevpwf44/07/2025 Other Overall patient is starting to improve. Infectious disease is going to extend his meropenem IV for 1 more week and then reassess as there is a very small area of dehiscence still with some drainage. Patient will continue with his LSO brace and physical therapy at the [facility]. I did refill his Flexeril for nighttime as he has a hard time getting comfortable to sleep. We will see him back in 4 weeks for reevaluation. The patient is very much in agreement with the treatment and/or diagnostic plan set forth and all questions were answered to the patient's satisfaction. Thanks once again. If we can be of further service to your patients with disorders of the spine, cervical, thoracic, or lumbar, please do not hesitate to contact Dr. Man. Best regards, 1. 3 weeks s/p I&D with seroma evacuation 2. 3 months s/p L2-5 decompression and noninstrumented fusion Plan Of Treatment Pending Test Test Name Order Date Lumbar spine, 4v flex ext - 12919 2023 Lumbar spine 2v ap and lat - 02827 05/11 Surgery Scheduling 01/25/2024 Surgery Scheduling 04/12/2024 DME - Lumbar Support, Surgical OTS 02/16 GRD-Compression stockings:thigh-high OTS 03/09/2024 BONE STIMULATOR 02/17/2024 MRI : Lumbosacral Spine W/O Contrast - 7 2148 03/23/2024 Future Test Test Name Order Date Chest 2 views - 55547 01/25/2024 CBC 01/25/2024 Type and Screen Blood Type 01/25/2024 PT/PTT 01/25/2024 BMP 01/25/2024 MRSA (Bilateral Nares) PCR 01/25/2024 EKG 01/25/2024 Insurance Providers Payer Name Payer Address Payer Phone Subscriber Number Group Number Insured Name Patient Relationship to Insured Coverage Start Date Coverage End [place] [address] [place] [address] [id number] DAMION WALLIS JRelf - patient is the insuredAnthemPO B[address] [place] [id number] JR, WILLIAMSelf - patient is the insured Medical (General) History Medical History History ICD Code High Blood Pressure Abnormal Heart RhythmThyroid diseaseStomach ulcersCancer spineKidney stones OsteoarthritisRheumatoid arthritisBleeding DisordersSurgical History Surgery Date(Month/Year) Rotator cuff surgery
--- OUTSIDE RECORDS SUMMARY | 2024-12-30 15:43 | XMS_ITS | Clinical Summary ---
Author Organization [facility] Address [address] [place] [address] Phone Care Team Providers Care Auto Collision Repair Instructor Name Role Phone Feliciano Ambrosio Louis HARGROVE Primary Care Provider [phone] Allergies Active AllergyReactionsCriticalityNoted DateCommentsFentanylDizziness,Nausea Only02/16/20233202BpemkwwtabzrWibvk52/13/4780VmkcrmjjddvGeebt59/13/2023Zolpidem Hqhmojq8502/16/2023 Medications MedicationSigDispense QuantityRefillsLast FilledStart DateEnd DateStatus acetaminophen [...] current use of anticoagulant therapy 02/16/2024MI 30.0-30.9,adult02/16/2024Former qzdlms5902/16/2024hronic atrial poqwvfblpodm43/13/2023Echocardiogram /13/4812Usnor69/13/2023rimary rzodrkanqvnv64/13/2023Heart failure, NYHA class 212Hyperlipemia 02/16/2023Mild CAD02/16/2023 Resolved Problems ProblemNoted DateDiagnosed DateResolved DateNon-ischemic cardiomyopathy Encounters DateTypeDepartmentCare YdqmNqsgzgkqtbs69/09/2025Scanned Document [facility] [address] [place] [address] Scanning, Generic Provider 11/23/2024Refill [address] [address] Irineo Mcintyre DO Chronic atrial fibrillation (Multi); Essential hypertension, benign; Non-ischemic cardiomyopathy (Multi)10/11/2024Telephone [address] [address] Елена Santana RN 10/10/2024Scanned Document [facility] [address] [place] [address] Scanning, Generic Provider 10/08/2024Scanned Document [facility] [address] [place] [address] Scanning, Generic Provider 10/08/2024Telephone [place] [address] [place] [address] Monserrat Frazier, RELIEF OPERATOR Advice Only10/06/2024Scanned Document [facility] [address] [place] [address] Scanning, Generic Provider 10/05/2024Scanned Document [facility] [address] [place] [address] Scanning, Generic Provider from Last 3 Months Immunizations ImmunizationAdministration DatesNext DueInfluenza, Ewdohndsock56/01/2019, 11/05/2017,04/07/2016Pneumococcal conjugate vaccine, 13-valent (PREVNAR 13) 04/07/2016 Family History Medical HistoryRelationNameCommentsNo Known ProblemsMotherRelationNameStatus CommentsMother Social History Tobacco UseTypesPacks/DayYears UsedDateSmoking Tobacco: FormerCigarettesQuit: 1980Smokeless Tobacco: Never Tobacco Cessation:Counseling Given: Yes Alcohol UseStandard Drinks/WeekCommentsYes3 (1 standard drink = 0.6 oz pure alcohol)Sex and Gender InformationValueDate RecordedSex Assigned at BirthNot on fileLegal VqkPlpd12/26/2022 2:53 PM ESTGender IdentityNot on fileSexual OrientationNot on file Last Filed Vital Signs Vital SignReadingTime TakenCommentsBlood Rrnphivc360/8602/16/2024 3:20 PM EST Gyzwz23072/12/2024 3:20 PM ESTTemperature--Respiratory Rate--Oxygen Saturation-- Inhaled Oxygen Concentration--Epwsjh70.6 kg (191 lb)02/16/2024 3:20 PM ESTHeight 167.6 cm (5' 6 )02/16/2024 3:20 PM ESTBody Mass Index30.8302/16/2024 3:20 PM EST Plan of Treatment DateTypeDepartmentCare Team (Latest Contact Info)Umyeueioiaa05/09/2025 10:00 AM ESTOffice Visit [facility] [address] [place] [address] Enedelia Gomez, ABSEILING INSTRUCTOR-CIGAR TOBACCO REHANDLER [address] [place] [address] Health MaintenanceDue DateLast DoneCommentsCreatinine Level1941Lipid Panel 1941Medicare Annual Wellness Visit (AWV)2Potassium Level 1941TSH Level2Diabetes Hmyamdmgu78/11/1960DTaP/Tdap/Td Vaccines (1 - Tdap)07/16/1963Zoster Vaccines (1 of 2)07/16/1991Pneumococcal Vaccine (2 of 2 - PPSV23, PCV20, or PCV21)RSV High Risk: (Elderly (60+) or Population) (1 - 1-dose 75+ series)2016Influenza Vaccine (#1) /, 12/24/2021, 12/22/2019, Additional history existsCOVID-19 Vaccine ( season)/, 02/18/2021, 05/28/2020, Additional history ncbadlMkxmnrcxcsxwpl24/09/202610/11/2024, 02/23/2024, 01/10/2022, Additional history existsHIB VaccinesAged OutNo [...] DateEnd Date Feliciano Ambrosio DO PCP - Dyivqbg56/1/21
--- OUTSIDE RECORDS SUMMARY | 2024-12-30 15:43 | XMS_ITS | Clinical Summary ---
Author Organization [facility] Address [address] [place] [address] Care Team Providers Care Winch Derrick Operator Name Role Phone Unavailable Primary Care Provider Unavailabl e Social History Tobacco UseTypesPacks/DayYears UsedDateSmoking Tobacco: Never AssessedSex and Gender InformationValueDate RecordedSex Assigned at BirthNot on fileLegal Sex Male05/19/2022 6:54 PM EDTGender IdentityNot on fileSexual OrientationNot on file Plan of Treatment Not on file Insurance
--- OUTSIDE RECORDS SUMMARY | 2024-12-30 15:43 | XMS_ITS | Clinical Summary ---
Author Organization [facility] Address [address], [address] [place] [address] Care Team Providers Care Animal Anatomy Teacher Name Role Phone Feliciano Ambrosio DO Primary Care Provider [phone] Allergies Active AllergyReactionsCriticalityNoted GosxOkjxhqcyLalsdhicTkt29/29/2018 Can't remember goofy GgsmugdvawwjUfs24/29/2018 Can't remember goofy and agitated BurbroyxstsTao02/29/2018 As child ZolpidemOther (See Comments)Low09/23/2020 Can't remember [...] Safety Domain Source: IP Abuse ScreeningAnswerDate RecordedPhysical grretSjgedn77/17/2024Verbal abuseDenies 02/21/2024Emotional xrarpSlvmsd24/17/2024Financial hrdouBotvaa65/17/2024Sexual gpjxqLoedzd05/17/2024Sex and Gender InformationValueDate RecordedSex Assigned at BirthNot on fileLegal IaxJuhe9104/16/2012 8:10 PM ESTGender IdentityNot on file Sexual OrientationNot on file Last Filed Vital Signs Vital SignReadingTime TakenCommentsBlood Qliohsen739/7302/27/2024 10:46 AM EST Ckjbp270102/27/2024 10:46 AM TVQBqnndprdijt75.7 ??C (98 ??F)02/27/2024 10:46 AM ESTRespiratory Ptgr643604/29/2023 10:46 AM ESTOxygen Kyudbgmpyr22%02/27/2024 10:46 AM ESTInhaled Oxygen Concentration--Wylcfx09.3 kg (190 lb 3.2 oz)02/21/2024 7:45 AM FHJTlcdwv795.6 cm (5' 6 )02/21/2024 7:45 AM ESTBody Mass Index30.7104/23/2023 7:45 AM EST Plan of Treatment Health MaintenanceDue DateLast WdvdFfxpverpTyztel04/11/1951Depression Screen 4DTaP/Tdap/Td vaccine (1 - Tdap)1Shingles vaccine [...] Mendes TypeRelation to PatientDate of BirthPhone Billing AddressPersonal/RclgswYfhu73/11/1941 [address] [place] [address] * Guarantor: Krista Mendes TypeRelation to PatientDate of BirthPhone Billing AddressPersonal/HaomduDhes78/11/1941 [address] [place] [address] Advance Directives * Full Code (Latest Code Status on File) Date ActivatedDate MepgdvsjszbSekijpgl66/17/2024 7:35 AM02/27/2024 3:35 PM Care Teams Team MemberRelationshipSpecialtyStart DateEnd Date Feliciano Ambrosio DO PCP - [facility]Faframingham [facility] Medicine07/22/17
--- OUTSIDE RECORDS SUMMARY | 2024-12-30 15:43 | XMS_ITS | Clinical Summary ---
Author Organization [facility] Address [id number] [address] [place] [address] Care Team Providers Care Collection Clerk Name Role Phone TjcatieEdmondan Louis HARGROVE Primary Care Provider [phone] Allergies Active AllergyReactionsCriticalityNoted OjogHvlwlbtkKscfvymb37/20/2021Fentanyl 09/02/20178316Zqqsgdtqkwkl77/29/2124Jkxthjuostz19/01/2005 Other reaction(s): Mental Status Change Medications MedicationSigDispense [...] MOUTH ONCE EVERY MORNING ON AN EMPTY HPNINYY302Active magnesium oxide (MAG-OX) 400 mg tablet Take [...] DateBenign prostatic hyperplasia (BPH) with urinary urge ceadepatcqqa42/07/2019 Overview (05/18/2022): urolift 12/21 ([place]) Was using [...] standard drink = 0.6 oz pure alcohol)ChildcareAnswerDate GhvbcsnzZbfhimiblTkiukpk94/04/2019EmploymentAnswer Date EpilwjqoBvdfxtefhxTgrmcno13/04/2019Hunger ScreeningAnswerDate Recorded Within the past 12 months we worried whether our food would run out before we got money to buy more.Never True05/18/2022Within the past 12 months the food we bought just didn't last and we didn't have money to get more.Never True 05/18/2022urpose - LifeAnswerDate RecordedPurpose and direction in lifeUnknown 03/31/2020ex and Gender InformationValueDate RecordedSex Assigned at BirthNot on fileLegal FkjUhex9610/08/2014 8:36 PM EDTGender IdentityNot on fileSexual OrientationNot on file Last Filed Vital Signs Vital SignReadingTime TakenCommentsBlood Jyhfdsva473/7905/18/2022 11:26 AM EDT Zhyle226705/18/2022 11:26 AM EDTTemperature--Respiratory Tgge438505/18/2022 11:26 AM EDTOxygen Saturation--Inhaled Oxygen Concentration--Wuosaw28.6 kg (180 lb) 05/18/2022 11:26 AM UQRIytzxr994.6 cm (5' 6 )05/18/2022 11:26 AM EDTBody Mass Index29.05005/18/2022 11:26 AM EDT Plan of Treatment Health MaintenanceDue DateLast DoneCommentsDepression Lbdimbhfn32/11/1954Tobacco Fqvcmbvoh14/11/1954DTaP,Tdap and Td Vaccines (1 - Tdap)1960Zoster (Shingles) Vaccine (1 of 2)07/16/1991Fall Risk Vqpojtomd27/11/2007COVID-19 Vaccine (6 - season), 02/18/2021, 05/28/2020, Additional history existsInfluenza Jheilog77, 12/22/2019, 12/06/2019, Additional history exists Medical Devices Not on file Insurance Care Teams Team MemberRelationshipSpecialtyStart DateEnd Date Feliciano Ambrosio DO PCP - GeneralFamily Medicine06/05/18
--- OUTSIDE RECORDS SUMMARY | 2024-12-30 15:43 | XMS_ITS | Patient Health Record ---
Author Organization [facility] Address [facility] [address] Care Team Providers Care Preschool Associate Teacher Name Role Phone Feliciano Ambrosio Primary Care Provider Pawel Teague Unavailable [phone] Allergies Allergen (clinical drug ingredient) Drug/Non Drug Allergy documented on EMR Reaction Allergy Type Onset Date Status zolpidem Ambien Unknown Drug Allergy ActiveDuragesic-100UnknownDrug AllergyActivefentanylFentanylUnknownDrug Allergy ActiveindomethacinIndocinUnknownDrug AllergyActivepenicillaminePenicillamine anaphylaxisDrug AllergyActive Reason For Referral No Information Medications Medication SIG (Take, Route, Frequency, Duration) Notes Start Date End Date Status Magnesium 400 MG as directed Orally ActivetraZODone HCl 50 MG1 tablet at bedtime as needed Orally Once a day; Duration: 30 day(s)ActiveAcetaminophen 500 MG2 capsule as needed Orally BID prn ActiveEliquis 5 MGas directed OrallyActiveLipitor 40 MG1 tablet Orally Once a day; Duration: 30 day(s)ActiveSpironolactone 25 MG1 tablet Orally; Duration: 30 day(s)ActiveSynthroid 150 MCG1 tablet in the morning on an empty stomach Orally Once a day; Duration: 30 day(s)ActiveBumetanide 1 MG1 tablet Orally Once a day ActivePotassium Chloride ER 20 MEQ1 tablet with food Orally Once a dayActive Eszopiclone 3 MG1 tablet immediately before bedtime Orally Once a dayActive Immunizations Vaccine Route Administration Date Status Comme nts Influenza Unknown 12/29/2020 Administered Social History Tobacco Use: Social History Observation Description Date Details (start date - stop date) Never Smoker NA - NA tobacco use Question Answer Notes Patient is a: non smoker Problems Problem Type SNOMED Code ICD Code Onset Dates Problem Status W/U Status Risk Notes Problem 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) (17493953780819658) Unspecified atherosclerosis of [place] arteries of extremities, bilateral legs (I70.203) ActiveconfirmedProblemAcquired hammer toe of right foot (1588091905484279)Other hammer toe(s) (acquired), right foot (M20.41)ActiveconfirmedProblemAcquired hammer toe of left foot (8537743198058365)Other hammer toe(s) (acquired), left foot (M20.42)Activeconfirmed Plan Of Treatment No Information Insurance Providers Payer Name Payer Address Payer Phone Subscriber Number Group Number Insured Name Patient Relationship to Insured Coverage Start Date Coverage End Date Medicare Part B [id number] Part [facility] Claims [address] [place] [address] [id number], WilliamSelf - [facility] the [facility]PO [address] [place], [place] [id number], WilliamSelf - patient is the insured Medical (General) History Medical History History ICD Code hypertension hyperlidemiaatrial fibrillationoveractive bladderlumbar spondylosisheart murmur stomach ulcerspoor circulationthyroid diseaseskin conditionsSurgical History Surgery Date(Month/Year)
[2024-12-30] MEDS: 0.9 % SODIUM CHLORIDE 1,000 ML 500 ML IV (15:59)
[2024-12-30 16:04] LABS: Hematocrit 24.0 % (42.0-54.0); Hemoglobin 7.6 g/dL (14.0-18.0); Immature Granulocytes Abs Auto 0.04 10^3/uL (0.00-0.03); Immature Granulocytes Pct Auto 0.3 % (0.0-0.5); Lymphocytes Absolute Auto 1.2 10^3/uL (1.2-3.8); Mean Corpuscular HGB Conc 31.7 g/dL (29.9-35.2); Mean Corpuscular Hemoglobin 28.8 pg (25.9-34.0); Mean Corpuscular Volume 90.9 fL (80.0-94.0); Platelet Count 294 10^3/uL (150-450); Red Blood Count 2.64 10^6/uL (4.70-6.10); White Blood Count 11.9 10^3/uL (4.0-11.0)
--- NOTE | 2024-12-30 16:13 | CT_ITS ---
The [address] [address] Patient Name: TAVO WALLIS MRN: [id number] date: 1940 Sex: M Assigned Patient Location: ER Current Patient Location: .[facility] Accession/Order Number: [id number] Exam Date: 12/30/2024 17:00 Report Date: 12/30/2024 18:48 At the request of: LEA PEÑA DO Procedure: CT abdomen pelvis wo con CT Abdomen and Pelvis withoutcontrast TECHNIQUE: Axial imaging with 2-D reconstruction. The CT exam was performed using one or more the following dose reduction techniques: Automated exposure control, adjustment of the MA and/or Kv according to patient size, or use of the iterative reconstruction technique. COMPARISON: None History: Altered mental status. Assessment for abdominal infection LIMITATIONS: None LOWER THORAX small pleural effusions greater on the right. Hiatal hernia. LIVER: Unremarkable GALLBLADDER: No gallbladder abnormality identified. BILE DUCTS: No dilatation SPLEEN: Unremarkable PANCREAS: Unremarkable ADRENAL GLANDS: Unremarkable KIDNEYS:Bilateral hydronephrosis and hydroureter greater on the left. No obstructing stone seen. May represent reflux. AORTA: No abdominal aortic aneurysm identified. Large volume of atherosclerosis. RETROPERITONEUM: No significant retroperitoneal abnormalities identified. MESENTERY:Unremarkable STOMACH:Unremarkable SMALL BOWEL: The small bowel loops are nondistended. APPENDIX: The appendix is normal. COLON: Unremarkable URINARY BLADDER: Catheter in the urinary bladder. Marked distention of urinary bladder. No wall thickening. REPRODUCTIVE SYSTEM: Reproductive structures are unremarkable. PNEUMOPERITONEUM: None PERITONEAL FLUID:None BONY STRUCTURES: Extensive multilevel thoracolumbar degenerative changes. Old L1 anterior wedge compression fracture with angulation. Patent bony central canal. Posterior decompression of lumbar spine. Left hip arthroplasty. Streak artifact limits assessment of the inferior pelvis. ABDOMINAL WALL: Anasarca. CT/CT abdomen pelvis wo con IMPRESSION: Catheter in urinary bladder. Marked distention of the urinary bladder. Hydronephrosis and hydroureter bilaterally. This may be secondary to reflux. No obstructing stone seen. No focal inflammatory changes. Small pleural effusions greater on the right. Adjacent atelectasis. Hiatal hernia. Impression dictated by: Esa Cardoso M.D. 12/30/2024 6:48 PM Dictation Location: [place] [address] Electronically authenticated by: [id number] Y Date: 12/30/2024 18:48
--- NOTE | 2024-12-30 16:30 | CT_ITS ---
The [address] [address] Patient Name: TVAO WALLIS MRN: [id number] date: 1940 Sex: M Assigned Patient Location: ER Current Patient Location: ER Accession/Order Number: [id number] Exam Date: 12/30/2024 17:00 Report Date: 12/30/2024 18:42 At the request of: LEA PEÑA DO Procedure: CT head/brain wo con Unenhanced head CT TECHNIQUE: Contiguous axial imaging of the head. The CT exam was performed using one or more the following dose reduction techniques: Automated exposure control, adjustment of the MA and/or Kv according to patient size, or use of the iterative reconstruction technique. COMPARISON: 12/27/2024 HISTORY: Altered mental status. Decreased urine output VENTRICLES: Within normal limits ATROPHY: Similar diffuse atrophy BRAIN PARENCHYMA: Decreased density of the white matter is most consistent with chronic small vessel disease. HEMORRHAGE: None HERNIATION: No mass effect or herniation INFARCTION: No recent vascular distribution infarction is seen. EXTRA-AXIAL FLUID COLLECTIONS None MIDBRAIN: Unremarkable RICKI: Unremarkable MEDULLA: Unremarkable SINUSES: Unremarkable ORBITS: Grossly unremarkable MASTOIDS: Unremarkable BONY STRUCTURES Intact ADDITIONAL FINDINGS: CT/CT head/brain wo con IMPRESSION: No acute findings. Impression dictated by: Esa Cardoso M.D. 12/30/2024 6:42 PM Dictation Location: [place] [address] Electronically authenticated by: [id number] Y Date: 12/30/2024 18:42
[2024-12-30 16:33] LABS: Anion Gap 14.5; Blood Urea Nitrogen 44.0 mg/dL (7.0-18.0); Calcium 9.5 mg/dL (8.5-10.1); Carbon Dioxide 24.2 mmol/L (21.0-32.0); Chloride 97 mmol/L (98-107); Estimated GFR (African America 28 (>=60 mL/min/1.73m^2); Estimated GFR (Non-African Ame 23 (>=60 mL/min/1.73m^2); Glucose 100 mg/dL (74-106); Potassium 4.7 mmol/L (3.5-5.1); Sodium 131 mmol/L (136-145)
[2024-12-30 16:38] LABS: NT Pro B Type Natriuretic Pept 4924.0 pg/mL (<=1800.0)
[2024-12-30 16:43] LABS: Lactate/Lactic Acid 1.5 mmol/L (0.4-2.0)
[2024-12-30 17:01] LABS: Glucose Urine UA NEGATIVE (NEGATIVE)
[2024-12-30 17:11] LABS: Cast Seen? NONE SEEN #/LPF (NONE SEEN); Crystals Seen? None Seen #/HPF (None Seen)
[2024-12-30 17:12] LABS: Urine Culture Indicated YES-FRMC
--- NOTE | 2024-12-30 17:18 | ED.GENADUL1 ---
HPI HPI - General Adult General Chief complaint: Altered Mental Status Stated complaint: Altered Mental Status Time Seen by Provider: 12/30/24 15:35 Source: medical record Mode of arrival: ambulance Limitations: altered mental status History of Present Illness HPI narrative: Patient is an 84-year-old male presenting to the emergency department from the [facility] for concerns of altered mental status and decreased urine output. Patient was just seen here in the emergency department 3 days ago for similar complaint. At that time, he had an unremarkable workup. He was reportedly AxO x 3 at that time, however today is AxO x 0. senior care staff state that he has had minimal urine output from his Chou catheter over the last 24 hours. Patient himself is quite altered and cannot provide any further history. His family at the bedside is concerned that he might have an underlying infection as he does get confused when he has infections such as UTIs. Related Data Home Medications ?Medication ?Instructions ?Recorded ?Confirmed acetaminophen 500 mg oral powder 1,000 mg PO .q8 PRN pain 01/06/23 12/30/24 packet (Tylenol Extra Strength) allopurinol 300 mg tablet 300 mg PO DAILY 01/06/23 12/30/24 atorvastatin 40 mg tablet 40 mg PO DAILY 01/06/23 12/30/24 bumetanide 1 mg tablet 1 mg PO DAILY 01/06/23 12/30/24 eszopiclone 3 mg tablet 3 mg PO BEDTIME 01/06/23 12/30/24 potassium chloride 20 mEq 20 meq PO DAILY 01/06/23 12/30/24 tablet,extended release(part/cryst) trazodone 50 mg tablet 50 mg PO DAILY PRN insomnia 01/06/23 12/30/24 levothyroxine 150 mcg tablet 150 mcg PO .qd 04/13/24 12/30/24 magnesium oxide 400 mg (241.3 mg 400 mg PO .qd 04/13/24 12/30/24 magnesium) tablet baclofen 10 mg tablet 10 mg PO BID PRN backpain 12/30/24 12/30/24 budesonide 0.5 mg/2 mL suspension 0.5 mg inhalation Q12H 12/30/24 12/30/24 for nebulization diltiazem HCl 30 mg tablet 30 mg PO BID 12/30/24 12/30/24 doxycycline hyclate 100 mg capsule 100 mg PO Q12H 12/30/24 12/30/24 ipratropium 0.5 mg-albuterol 3 mg 3 ml inhalation Q8H 12/30/24 12/30/24 (2.5 mg base)/3 mL nebulization soln nystatin 100,000 unit/gram topical 1 applic topical BID 12/30/24 12/30/24 powder (Klayesta) pramipexole 0.25 mg tablet 0.25 mg PO QDAY PRN tremors 12/30/24 12/30/24 Allergies Allergy/AdvReac Type Severity Reaction Status Date / Time fentanyl (From Duragesic) Allergy Unknown Agitated Verified 12/30/24 16:11 indomethacin (From Indocin) Allergy Unknown Agitated Verified 12/30/24 16:11 Penicillins Allergy Unknown Rash Verified 12/30/24 16:11 zolpidem (From Ambien) Allergy Agitated Verified 12/30/24 16:11 Opioid HPI Opioid Management Most Recent Opioid Data: Last Pain Scale 7 04/15/24, 02:41 Last ORT Total Score 11 04/13/24, 13:19 Last ORT Risk Category High Risk 04/13/24, 13:19 Review of Systems ROS Status of ROS 10 or more systems reviewed and unremarkable except as noted in history and below [facility] Medical History (Updated 12/30/24 @ 18:45 by Clarence Schroeder DO) Fluid collection at surgical site ?T88.8XXA - Other specified complications of surgical and medical care, 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, initial encounter (ICD-10) Acute on chronic renal failure ?N17.9 - Acute kidney failure, unspecified (ICD-10) ?N18.9 - Chronic kidney disease, unspecified (ICD-10) Acute on chronic diastolic CHF (congestive heart failure) ?I50.33 - Acute on chronic diastolic (congestive) heart failure (ICD-10) 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 - Diverticulum of esophagus, acquired (ICD-10) Encounter for screening colonoscopy ?Z12.11 - Encounter for screening for malignant neoplasm of colon (ICD-10) Sleep apnea ?G47.30 - Sleep apnea, unspecified (ICD-10) Gastric ulcer ?K25.9 - Gastric ulcer, unspecified as acute or chronic, without hemorrhage or perforation (ICD-10) DJD (degenerative joint disease) ?M19.90 - Unspecified osteoarthritis, unspecified site (ICD-10) Dehydration ?E86.0 - Dehydration (ICD-10) Altered mental state ?R41.82 - Altered mental status, unspecified (ICD-10) Falls ?R29.6 - Repeated falls (ICD-10) Bladder retention ?R33.9 - Retention of urine, unspecified (ICD-10) Constipation ?K59.00 - Constipation, unspecified (ICD-10) Pleural effusion ?J90 - Pleural effusion, 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 (ICD-10) Bakers cyst ?M71.20 - Synovial cyst of popliteal space [[place]], unspecified knee (ICD-10) Cardiomyopathy ?I42.9 - Cardiomyopathy, unspecified (ICD-10) Cellulitis ?L03.90 - Cellulitis, unspecified (ICD-10) Gout ?M10.9 - Gout, unspecified (ICD-10) Meningioma, spinal ?D32.1 - Benign neoplasm of spinal meninges (ICD-10) Tinnitus ?H93.19 - Tinnitus, unspecified ear (ICD-10) BPH (benign prostatic hyperplasia) ?N40.0 - Benign prostatic hyperplasia without lower urinary tract symptoms (ICD-10) Insomnia ?G47.00 - Insomnia, unspecified (ICD-10) PVD (peripheral vascular disease) ?I73.9 - Peripheral vascular disease, unspecified (ICD-10) CHF (congestive heart failure) ?I50.9 - Heart failure, unspecified (ICD-10) Cataracts, bilateral ?H26.9 - Unspecified cataract (ICD-10) Low back pain ?M54.50 - Low back pain, unspecified (ICD-10) Hypothyroid ?E03.9 - Hypothyroidism, unspecified (ICD-10) Hypercholesterolemia ?E78.00 - Pure hypercholesterolemia, unspecified (ICD-10) Afib ?I48.91 - Unspecified atrial fibrillation (ICD-10) Surgical History (Updated 04/13/24 @ 10:32 by Yoli High RN) H/O lithotripsy ?Z98.890 - Other specified postprocedural states (ICD-10) H/O laminectomy ?Z98.890 - Other specified postprocedural states (ICD-10) H/O sinus surgery ?Z98.890 - Other specified postprocedural states (ICD-10) History of back surgery ?Z98.890 - Other specified postprocedural states (ICD-10) History of esophagogastroduodenoscopy (EGD) ?Z98.890 - Other specified postprocedural states (ICD-10) History of total knee arthroplasty ?Z96.659 - Presence of unspecified artificial knee joint (ICD-10) History of hip replacement ?Z96.649 - Presence of unspecified artificial hip joint (ICD-10) Previous back surgery ?Z98.890 - Other specified postprocedural states (ICD-10) History of shoulder surgery ?Z98.890 - Other specified postprocedural states (ICD-10) Family History (Updated 04/13/24 @ 10:34 by Yoli High RN) Other Alzheimers disease Cirrhosis Family history of cancer Family history of diabetes mellitus Family history of hypertension Family history of myocardial infarction Heart disease Social History (Updated 04/13/24 @ 10:36 by Yoli High RN) Within the past year, how often did you have a drink containing alcohol: 4 or more times a week Smoking status: Former smoker Second hand tobacco smoke exposure: Yes Non-prescribed substance use: denies use Previous occupational history: Retired- [employer] Highest level of school completed/degree received: high school graduate Little interest or pleasure in doing things: not at all Feeling down, depressed, or hopeless: not at all Exam Narrative Exam Narrative: CONSTITUTIONAL: Patient appears confused, oriented x 0, unable to follow commands or answer questions appropriately SKIN: Was warm and dry. EYES: Sclerae white. EARS, NOSE, THROAT: Dry mucous membranes RESPIRATORY: Clear to auscultation bilaterally, no wheezes, crackles, or stridor, no use of accessory muscles CARDIOVASCULAR: Normal rate and regular rhythm. There is no S3, S4, murmur, rub. GASTROINTESTINAL: Abdomen soft, nontender, nondistended. Chou catheter in place draining a minimal amount of yellow urine. No guarding. MUSCULOSKELETAL: There is symmetric, bilateral lower extremity pitting edema. No erythema, induration, or cellulitic changes. There are no decubitus ulcers or infection changes on the patient's back or area of prior spinal surgery sites. NEUROLOGIC: Patient is awake and alert. Facies were symmetrical. Constitutional Vital Signs, click to edit/add: Last Vital Signs Temp 98.2 F 12/30/24 15:35 Pulse 84 12/30/24 18:10 Resp 19 12/30/24 18:10 BP 139/70 12/30/24 18:00 Pulse Ox 98 12/30/24 18:10 O2 Del Method Room Air 12/30/24 15:35 Course Vital Signs Vital signs: Vital Signs Temperature 98.2 F 12/30/24 15:35 Pulse Rate 91 H 12/30/24 15:35 Respiratory Rate 26 H 12/30/24 15:35 Blood Pressure 126/68 12/30/24 15:35 Pulse Oximetry 96 12/30/24 15:35 Oxygen Delivery Method Room Air 12/30/24 15:35 Temperature 98.2 F 12/30/24 15:35 Pulse Rate 84 12/30/24 18:10 Respiratory Rate 19 12/30/24 18:10 Blood Pressure 139/70 12/30/24 18:00 Pulse Oximetry 98 12/30/24 18:10 Oxygen Delivery Method Room Air 12/30/24 15:35 Medical Decision Making MDM Narrative Medical decision making narrative: Patient is a 84-year-old male presenting to the emergency department from the [facility] for evaluation of altered mental status and decreased urine output over the last 24 hours. On review of external documentation, patient was seen in the emergency department 3 days ago for similar complaint. He had a CT head, chest x-ray, urinalysis, and laboratory studies all of which were at his baseline and generally unremarkable. His vital signs arrival today are within normal limits. He is afebrile and hemodynamically stable. Examination as noted above. Differential diagnosis includes Chou catheter malfunction, intracranial hemorrhage, developing UTI/pneumonia, kidney injury, or other electrolyte/metabolic derangement. IV was established and repeat workup was obtained. Laboratory studies were significant for an acute kidney injury. His creatinine today is 2.66 up from his baseline of 1.33 three days ago. Otherwise, his labs are unchanged compared to 3 days ago. He has a mild leukocytosis. He is anemic but at his baseline. He remains mildly hyponatremic. Troponin and BNP at his baseline. Urinalysis suggestive of a mild infection with small amount of bacteria, 5-10 WBCs, and moderate leukocyte esterase. 12 Lead EKG: Atrial fibrillation at a controlled ventricular sponsor at a rate of 99. Normal axis. No ST segment elevations. QRS, HI, and QTc interval within normal limits. Unchanged compared to prior EKG from 3 days ago. Final impression: A-fib without evidence of acute myocardial schema. Occasional monomorphic PVCs. CT abdomen/pelvis independently reviewed and interpreted by myself and radiology demonstrated a severely distended bladder with hydronephrosis/hydroureter bilaterally. At this time, I do believe the patient's presentation is secondary to obstructive uropathy from Chou catheter malfunction. The Chou catheter was replaced with return of 1.3 L of urine. Given his AMS and new leukocytosis/evidence of UTI on UA, I did empirically treat him with IV ceftriaxone and IV doxycycline. I do believe patient warrants admission to the hospital. I did discuss the patient with Dr. Pepe who accepted the patient to his service. FINAL IMPRESSION: #Acute obstructive uropathy #Acute encephalopathy DISPOSITION: Admitted to the hospital CONDITION: Fair Medical Records Medical records reviewed: Yes I reviewed the patient's medical records Lab Data Lab results reviewed: Yes I reviewed the patient's lab results Labs: Lab Results 12/30/24 12/30/24 Range/Units 15:54 16:45 WBC 11.9 H (4.0-11.0) 10^3/uL RBC 2.64 L (4.70-6.10) 10^6/uL Hgb 7.6 L (14.0-18.0) g/dL Hct 24.0 L (42.0-54.0) % MCV 90.9 (80.0-94.0) fL MCH 28.8 (25.9-34.0) pg MCHC 31.7 (29.9-35.2) g/dL RDW 16.9 H (11.0-15.0) % Plt Count 294 (150-450) 10^3/uL MPV 9.5 (9.5-13.5) fL Neut % (Auto) 79.9 H (43.0-75.0) % Lymph % (Auto) 10.4 L (20.5-60.0) % Liberty % (Auto) 6.9 (1.7-12.0) % Eos % (Auto) 1.9 (0.9-7.0) % Baso % (Auto) 0.6 (0.2-2.0) % Neut # (Auto) 9.5 H (1.4-6.5) 10^3/uL Lymph # (Auto) 1.2 (1.2-3.8) 10^3/uL Liberty # (Auto) 0.8 (0.3-0.8) 10^3/uL Eos # (Auto) 0.2 (0.0-0.7) 10^3/uL Baso # (Auto) 0.1 (0.0-0.1) 10^3/uL Abs Immat Gran (auto) 0.04 H (0.00-0.03) 10^3/uL Imm/Tot Granulo (auto) 0.3 (0.0-0.5) % Sodium 131 L (136-145) mmol/L Potassium 4.7 (3.5-5.1) mmol/L Chloride 97 L (98-107) mmol/L Carbon Dioxide 24.2 (21.0-32.0) mmol/L Anion Gap 14.5 BUN 44.0 H (7.0-18.0) mg/dL Creatinine 2.66 H (0.70-1.30) mg/dL Est GFR ( Amer) 28 L (>=60 mL/min/1.73m^2) Est GFR (Non-Af Amer) 23 L (>=60 mL/min/1.73m^2) BUN/Creatinine Ratio 16.5 Glucose 100 (74-106) mg/dL Lactate 1.5 (0.4-2.0) mmol/L Calcium 9.5 (8.5-10.1) mg/dL Troponin I High Sens 122.3 H* (4.0-76.1) pg/mL NT-Pro-B Natriuret Pep 4924.0 H* (<=1800.0) pg/mL Urine Color Lt. yellow (YELLOW) Urine Clarity Clear (CLEAR) Urine pH 6.0 (5.0-9.0) Ur Specific [place] <=1.005 A (1.005-1.025) Urine Protein Negative (NEG/TRACE) mg/dL Urine Glucose (UA) Negative (NEGATIVE) mg/dL Urine Ketones Negative (NEGATIVE) mg/dL Urine Occult Blood Small A (NEGATIVE) Urine Nitrite Positive A (NEGATIVE) Urine Bilirubin Negative (NEGATIVE) Urine Urobilinogen 0.2 (0.2-1.0) EU/dL Ur Leukocyte Esterase Moderate A (NEGATIVE) Urine RBC 2-5 A (0-2) #/HPF Urine WBC 5-10 A (NONE SEEN) #/HPF Ur Squamous Epith Cells None seen (NONE/RARE) #/LPF Urine Crystals None seen (None Seen) #/HPF Urine Bacteria Small A (NONE SEEN) #/HPF Urine Casts None seen (NONE SEEN) #/LPF Urine Mucus None seen (NONE SEEN) Urine Yeast Seen A (NONE SEEN) Ur Culture Indicated? [place] [place] scan - head: Attestation: I personally reviewed and interpreted this imaging study as follows: Radiologist's impression: ITS Impressions Chest X-Ray 12/30/24 15:41 IMPRESSION: Similar CHF findings. Impression dictated by: Esa Cardoso M.D. 12/30/2024 5:06 PM Dictation Location: [place] Electronically authenticated by: [id number] Y Date: 12/30/2024 17:[address] 12/30/24 16:30 IMPRESSION: No acute findings. Impression dictated by: Esa Cardoso M.D. 12/30/2024 6:42 PM Dictation Location: [place] Electronically authenticated by: [id number] Y Date: 12/30/2024 18:42 ECG Data Attestation: I personally reviewed and interpreted this ECG as follows: Discharge Plan Discharge Chief Complaint: Altered Mental Status Clinical Impression: Lower obstructive uropathy, Encephalopathy Patient Disposition: Admitted As Inpatient Time of Disposition Decision: 18:45 Condition: Fair
[2024-12-30] MEDS: DOXYCYCLINE HYCLATE 100 MG in 0.9 % SODIUM CHLORIDE 100 ML IV (18:45)
[2024-12-30] MEDS: PIPERACILLIN SODIUM/TAZOBACTAM 3.375 GM in 0.9 % SODIUM CHLORIDE 50 ML IV (22:39)
[2024-12-30] MEDS: PANTOPRAZOLE SODIUM 40 MG VIAL IV (22:39)
[2024-12-30] MEDS: ASPIRIN 300 MG SUPP.RECT PR (22:39)
[2024-12-30] MEDS: DILTIAZEM HCL 25 MG/5 ML VIAL 5 MG IV (22:39)
[2024-12-31] VITALS (24 sets, daily range): BP systolic 105–120; BP diastolic 60–79; PULSE 78–117; TEMP 36.7–37.1; O2SAT 94–98
[2024-12-31 05:57] LABS: Hematocrit 24.3 % (42.0-54.0); Hemoglobin 7.7 g/dL (14.0-18.0); Immature Granulocytes Abs Auto 0.01 10^3/uL (0.00-0.03); Immature Granulocytes Pct Auto 0.1 % (0.0-0.5); Lymphocytes Absolute Auto 1.0 10^3/uL (1.2-3.8); Mean Corpuscular HGB Conc 31.7 g/dL (29.9-35.2); Mean Corpuscular Hemoglobin 28.3 pg (25.9-34.0); Mean Corpuscular Volume 89.3 fL (80.0-94.0); Platelet Count 216 10^3/uL (150-450); Red Blood Count 2.72 10^6/uL (4.70-6.10); White Blood Count 7.1 10^3/uL (4.0-11.0)
[2024-12-31 06:17] LABS: Iron 12.0 ug/dL (65.0-175.0); Percent Iron Saturation 6.8 %; Total Iron Binding Capacity 177.0 ug/dL (250.0-450.0)
[2024-12-31 06:30] LABS: Alanine Aminotransferase 16 U/L (16-63); Albumin Globulin Ratio 0.6; Albumin Level 2.4 g/dL (3.4-5.0); Alkaline Phosphatase 96 U/L (46-116); Anion Gap 13.0; Aspartate Amino Transferase 17 U/L (15-37); Blood Urea Nitrogen 42.0 mg/dL (7.0-18.0); Calcium 9.0 mg/dL (8.5-10.1); Carbon Dioxide 25.2 mmol/L (21.0-32.0); Chloride 104 mmol/L (98-107); Estimated GFR (African America 31 (>=60 mL/min/1.73m^2); Estimated GFR (Non-African Ame 25 (>=60 mL/min/1.73m^2); Globulin 3.7 g/dL; Glucose 75 mg/dL (74-106); Magnesium 2.4 mg/dL (1.8-2.4); Potassium 4.2 mmol/L (3.5-5.1); Sodium 138 mmol/L (136-145); Thyroid Stimulating Hormone 10.864 uIU/mL (0.358-3.740); Total Protein 6.1 g/dL (6.4-8.2)
[2024-12-31 06:36] LABS: Ferritin 293.0 ng/mL (26.0-388.0); Folate 9.00 ng/mL (8.60-58.90)
--- NOTE | 2024-12-31 07:50 | CM.NOTE ---
Rounds made with Dr. Pepe. Discussed with pt diagnosis and plan of care. Abigail daughter and medical POA was in the room as well. Pt to have MRI done today.
--- NOTE | 2024-12-31 08:00 | ECG_ITS ---
[facility] Test Date: 2024-12-31 Pat Name: TAVO WALLIS Department: Room: 2171 Gender: Male Locks Inspector: : [id number] Requested By: [id number] Order Number: [id number] Reading MD: ROWAN OCHOA M.D. Measurements Intervals Secretary Rate: 103 P: NV: QRS: -77 QRSD: 94 T: 60 QT: 340 QTc: 446 Interpretive Statements ATRIAL FIBRILLATION WITH RAPID VENTRICULAR RESPONSE INDETERMINATE AXIS LOW QRS VOLTAGE IN EXTREMITY LEADS [QRS DEFLECTION < 0.5 mV IN LIMB LEADS] ANTEROSEPTAL MYOCARDIAL INFARCTION [40+ ms Q WAVE IN V1-V4], OF INDETERMINATE AGE Compared to ECG 12/30/2024 15:58:06 Indeterminate axis now present Low QRS voltage now present Aberrant conduction of supraventricular beat(s) no longer present Myocardial infarct finding still present Electronically Signed On 12-31-2024 18:03:57 EDT by ROWAN OCHOA M.D.
--- NOTE | 2024-12-31 08:45 | PM.HP ---
HPI H&P: HPI History of Present Illness Chief complaint: Lower Obstructive Uropathy Encephalopathy Narrative: Mr. Mendes is an 84-year-old gentleman who was sent to the emergency room for ongoing altered mentation. Apparently the patient started having change in mental status 3 days ago. He was sent to the emergency room on 12/27 where the initial evaluation was completed and the [facility] was [facility]. Patient continued to have altered mentation, unable to communicate or follow command therefore he was sent back to the emergency room. Repeat CAT scan of the head does not show acute intracranial process. Patient was found to have LIS with obstructive uropathy. Patient did have a Chou catheter at the [facility] but apparently it was blocked or clogged. Chou catheter was exchanged in the emergency room department and the more than a liter of urine drained out. No fever or chills Recent urine culture completed in the emergency room showed yeast. Opioid HPI Opioid Management Most Recent Pain and Opioid Data: Last Pain Scale 7 04/15/24, 02:41 Last Pain Assessment Today, 07:20 Last ORT Total Score 0 12/30/24, 20:15 Last ORT Risk Category Low Risk 12/30/24, 20:15 Review of Systems ROS Status of ROS 10 or more systems reviewed and unremarkable except as noted in history and below PFSH PFS Medical History (Updated 12/31/24 @ 08:50 by Sha Pepe MD) Fluid collection at surgical site ?T88.8XXA - Other specified complications of surgical and medical care, 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, initial encounter (ICD-10) Acute on chronic renal failure ?N17.9 - Acute kidney failure, unspecified (ICD-10) ?N18.9 - Chronic kidney disease, unspecified (ICD-10) Acute on chronic diastolic CHF (congestive heart failure) ?I50.33 - Acute on chronic diastolic (congestive) heart failure (ICD-10) 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 - Diverticulum of esophagus, acquired (ICD-10) Encounter for screening colonoscopy ?Z12.11 - Encounter for screening for malignant neoplasm of colon (ICD-10) Sleep apnea ?G47.30 - Sleep apnea, unspecified (ICD-10) Gastric ulcer ?K25.9 - Gastric ulcer, unspecified as acute or chronic, without hemorrhage or perforation (ICD-10) DJD (degenerative joint disease) ?M19.90 - Unspecified osteoarthritis, unspecified site (ICD-10) Dehydration ?E86.0 - Dehydration (ICD-10) Altered mental state ?R41.82 - Altered mental status, unspecified (ICD-10) Falls ?R29.6 - Repeated falls (ICD-10) Bladder retention ?R33.9 - Retention of urine, unspecified (ICD-10) Constipation ?K59.00 - Constipation, unspecified (ICD-10) Pleural effusion ?J90 - Pleural effusion, 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 (ICD-10) Bakers cyst ?M71.20 - Synovial cyst of popliteal space [[place]], unspecified knee (ICD-10) Cardiomyopathy ?I42.9 - Cardiomyopathy, unspecified (ICD-10) Cellulitis ?L03.90 - Cellulitis, unspecified (ICD-10) Gout ?M10.9 - Gout, unspecified (ICD-10) Meningioma, spinal ?D32.1 - Benign neoplasm of spinal meninges (ICD-10) Tinnitus ?H93.19 - Tinnitus, unspecified ear (ICD-10) BPH (benign prostatic hyperplasia) ?N40.0 - Benign prostatic hyperplasia without lower urinary tract symptoms (ICD-10) Insomnia ?G47.00 - Insomnia, unspecified (ICD-10) PVD (peripheral vascular disease) ?I73.9 - Peripheral vascular disease, unspecified (ICD-10) CHF (congestive heart failure) ?I50.9 - Heart failure, unspecified (ICD-10) Cataracts, bilateral ?H26.9 - Unspecified cataract (ICD-10) Low back pain ?M54.50 - Low back pain, unspecified (ICD-10) Hypercholesterolemia ?E78.00 - Pure hypercholesterolemia, unspecified (ICD-10) Surgical History (Updated 04/13/24 @ 10:32 by Yoli High RN) H/O lithotripsy ?Z98.890 - Other specified postprocedural states (ICD-10) H/O laminectomy ?Z98.890 - Other specified postprocedural states (ICD-10) H/O sinus surgery ?Z98.890 - Other specified postprocedural states (ICD-10) History of back surgery ?Z98.890 - Other specified postprocedural states (ICD-10) History of esophagogastroduodenoscopy (EGD) ?Z98.890 - Other specified postprocedural states (ICD-10) History of total knee arthroplasty ?Z96.659 - Presence of unspecified artificial knee joint (ICD-10) History of hip replacement ?Z96.649 - Presence of unspecified artificial hip joint (ICD-10) Previous back surgery ?Z98.890 - Other specified postprocedural states (ICD-10) History of shoulder surgery ?Z98.890 - Other specified postprocedural states (ICD-10) Family History (Updated 04/13/24 @ 10:34 by Yoli High, RN) Other Alzheimers disease Cirrhosis Family history of cancer Family history of diabetes mellitus Family history of hypertension Family history of myocardial infarction Heart disease Social History (Updated 04/13/24 @ 10:36 by Yoli High, RN) Within the past year, how often did you have a drink containing alcohol: 4 or more times a week Smoking status: Former smoker Second hand tobacco smoke exposure: Yes Non-prescribed substance use: denies use Previous occupational history: Retired- [employer] Highest level of school completed/degree received: high school graduate Little interest or pleasure in doing things: not at all Feeling down, depressed, or hopeless: not at all Meds Home Medications and Allergies Home Medications ?Medication ?Instructions ?Recorded ?Confirmed ?Type acetaminophen 500 mg oral powder 1,000 mg PO .q8 PRN pain 01/06/23 12/30/24 History packet (Tylenol Extra Strength) allopurinol 300 mg tablet 300 mg PO DAILY 01/06/23 12/30/24 History atorvastatin 40 mg tablet 40 mg PO DAILY 01/06/23 12/30/24 History bumetanide 1 mg tablet 1 mg PO DAILY 01/06/23 12/30/24 History eszopiclone 3 mg tablet 3 mg PO BEDTIME 01/06/23 12/30/24 History potassium chloride 20 mEq 20 meq PO DAILY 01/06/23 12/30/24 History tablet,extended release(part/cryst) trazodone 50 mg tablet 50 mg PO DAILY PRN insomnia 01/06/23 12/30/24 History levothyroxine 150 mcg tablet 150 mcg PO .qd 04/13/24 12/30/24 History magnesium oxide 400 mg (241.3 mg 400 mg PO .qd 04/13/24 12/30/24 History magnesium) tablet baclofen 10 mg tablet 10 mg PO BID PRN backpain 12/30/24 12/30/24 History budesonide 0.5 mg/2 mL suspension 0.5 mg inhalation Q12H 12/30/24 12/30/24 History for nebulization diltiazem HCl 30 mg tablet 30 mg PO BID 12/30/24 12/30/24 History doxycycline hyclate 100 mg capsule 100 mg PO Q12H 12/30/24 12/30/24 History ipratropium 0.5 mg-albuterol 3 mg 3 ml inhalation Q8H 12/30/24 12/30/24 History (2.5 mg base)/3 mL nebulization soln nystatin 100,000 unit/gram topical 1 applic topical BID 12/30/24 12/30/24 History powder (Klayesta) pramipexole 0.25 mg tablet 0.25 mg PO QDAY PRN tremors 12/30/24 12/30/24 History Allergies Allergy/AdvReac Type Severity Reaction Status Date / Time fentanyl (From Duragesic) Allergy Unknown Agitated Verified 12/30/24 16:11 indomethacin (From Indocin) Allergy Unknown Agitated Verified 12/30/24 16:11 Penicillins Allergy Unknown Rash Verified 12/30/24 16:11 zolpidem (From Ambien) Allergy Agitated Verified 12/30/24 16:11 Exam Narrative Exam Narrative: Patient is lying in bed. Awake. His morning. Unable to follow command. He is hurting everywhere Pale skin buccal mucosa. Very dry buccal mucosa. Neck is slightly rigid. Chest exam revealed diminished breath sound. Heart is irregular. Abdomen soft, nontender. Chou catheter is in place. Lower extremities showed +1 pitting edema. Patient has at least stage II ulceration involving the right heel with serous drainage. Neurologically the patient is awake but not able to communicate. Unable to answer questions or follow commands. He moans everywhere. He is moving his upper extremities spontaneously He is not moving his lower extremities. He has some contractions on his feet. Questioning whether he has been ambulating recently. His daughter stated that he has been ambulating with assist at the nursing facility. I examined his lumbar area where he had the surgery before. Surgical scar is intact. No bulging, no erythema. No drainage. Constitutional Vital Signs, click to edit/add: Last Vital Signs Temp 98.3 F 12/31/24 07:20 Pulse 101 H 12/31/24 07:58 Resp 20 12/31/24 07:20 BP 113/66 12/31/24 07:20 Pulse Ox 94 L 12/31/24 07:20 O2 Del Method Room Air 12/31/24 07:20 Results Labs Labs: Short CBC 12/30/24 12/31/24 Range/Units 15:54 05:40 WBC 11.9 H 7.1 (4.0-11.0) 10^3/uL Hgb 7.6 L 7.7 L (14.0-18.0) g/dL Hct 24.0 L 24.3 L (42.0-54.0) % Plt Count 294 216 (150-450) 10^3/uL BMP 12/30/24 12/31/24 15:54 05:40 Sodium 131 L 138 Potassium 4.7 4.2 Chloride 97 L 104 Carbon Dioxide 24.2 25.2 BUN 44.0 H 42.0 H Creatinine 2.66 H 2.45 H Glucose 100 75 Calcium 9.5 9.0 Liver Function 12/31/24 Range/Units 05:40 Total Bilirubin 0.5 (0.2-1.0) mg/dL AST 17 (15-37) U/L ALT 16 (16-63) U/L Alkaline Phosphatase 96 (46-116) U/L Albumin 2.4 L (3.4-5.0) g/dL Urine 12/30/24 Range/Units 16:45 Urine Color Lt. yellow (YELLOW) Urine Clarity Clear (CLEAR) Urine pH 6.0 (5.0-9.0) Ur Specific [place] <=1.005 A (1.005-1.025) Urine Protein Negative (NEG/TRACE) mg/dL Urine Glucose (UA) Negative (NEGATIVE) mg/dL Assessment and Plan Assessment and Plan (1) Encephalopathy: (2) Lower obstructive uropathy: (3) Decubitus ulcer of right heel, stage 2: (4) LIS (acute kidney injury): (5) UTI (urinary tract infection): (6) Anemia: (7) Afib: Qualifiers: Atrial fibrillation type: longstanding persistent Qualified Code(s): I48.11 - Longstanding persistent atrial fibrillation Plan Altered mental status. Likely metabolic encephalopathy but could not exclude acute/subacute primary COVER CREASER insult. This has been going on at least for 3 days. [facility] emergency room on 12/27 due to altered mental status for a day or 2 prior to that. Patient was sent back to the nursing facility however he continued to have altered mentation therefore he was sent back to the emergency room yesterday. I had excepted to admit him back to the hospital for CAT scan of the brain came back negative for acute intracranial process I started patient on aspirin rectally daily I requested MRI of the brain rule out acute stroke. At this time I given the altered mental status started at least 4 days prior to this admission he would not qualify for thrombolysis or thrombectomy. If MRI is positive for stroke then we will initiate stroke comprehensive evaluation including carotid, echo. Fix his metabolic derangement The possibility of COVER CREASER infection is low but not completely excluded LIS, likely caused by obstructive uropathy as well as dehydration and volume loss. Patient has significantly dry buccal mucosa. Patient had a Chou catheter at the [facility] which was not draining. 1 L of urine drained out after Chou exchange. I am hoping that his kidney function will improve. Started patient on IV fluid infusion suspecting post obstructive polyuria. UTI. Urine culture is growing yeast I started patient on Diflucan. I also started patient on Zosyn until final culture report is back. At this stage II right heel ulceration. Requested wound culture. Requested arterial study. 1 dose of vancomycin. Requested podiatry consultation. Defer for any diagnostic and therapeutic invention until his wound to podiatry. May need to have MRI at some point to exclude osteomyelitis Bilateral lower extremities edema. Rule out DVT. Ultrasound venous study is ordered. Chronic atrial fibrillation. Patient is on Cardizem but unable to take Cardizem p.o. now Started him on Cardizem IV Patient is not on anticoagulation. He is at risk of embolic stroke but need to investigate further why he is not on anticoagulation I suspect that he has contraindication. Start the patient on heparin subcu for now. Anemia. Hemoglobin is lower than baseline. Requested iron study and ferritin which came back consistent with mixed etiology. Iron deficiency and chronic disease. Requested stool Hemoccult Started patient on PPI Monitor his hemoglobin. Patient will likely require to have anemia workup to be done in the outpatient setting to be handled by PCP in collaboration with other needed outpatient providers. This may include but not limited to EGD, colonoscopy, referral to see hematology and other needed age-appropriate cancer screening. Patient status is adynamic and evolutionary therefore the aforementioned assessment and plan may or may not be complete or conclusive. The patient would likely require to have additional workup, investigation, therapeutic intervention, consultation, probably transfer to tertiary care center based on clinical progression and follow-up test result. I had discussed this case with his daughter at the bedside. I provided her information about his disease, prognosis, expectation and trajectory. Answered all of questions I spent about 1 hour and a half in the critical care evaluation and treatment of this patient thus far Urinary Catheter Management Urinary Catheter Management 2-way Urethral: Cath placed during this visit: yes Urethral indwelling: Yes Reason for continuing: acute urinary retention Insertion date: 12/30/24
[2024-12-31] MEDS: HEPARIN SODIUM (PORCINE) 5,000 UNIT/ML VIAL 5000 UNIT SUBQ ×2 (09:13→22:01)
[2024-12-31] MEDS: 0.9 % SODIUM CHLORIDE 1,000 ML 80 ML IV ×2 (09:13→22:01)
[2024-12-31] MEDS: LEVOTHYROXINE SODIUM 100 MCG VIAL 50 MCG IV (09:13)
[2024-12-31] MEDS: 0.9 % SODIUM CHLORIDE 10 ML VIAL 5 ML IV (09:14)
[2024-12-31] MEDS: DILTIAZEM HCL 25 MG/5 ML VIAL 5 MG IV ×4 (09:14→22:01)
[2024-12-31] MEDS: FLUCONAZOLE IN NACL,ISO-OSM 200 MG/100 ML PREMIX 100 MG IV (09:22)
[2024-12-31] MEDS: ACETAMINOPHEN 650 MG RECTAL SUPPOSITORY PR (09:53)
[2024-12-31] MEDS: PIPERACILLIN SODIUM/TAZOBACTAM 3.375 GM in 0.9 % SODIUM CHLORIDE 50 ML IV (10:05)
[2024-12-31] MEDS: VANCOMYCIN HCL 1,250 MG in 0.9 % SODIUM CHLORIDE 250 ML 250 MG IV (10:07)
--- NOTE | 2024-12-31 10:12 | SWNOTE1 ---
Important Message from Medicare reviewed and discussed with patient's daughter, Abigail. Pt's daughter verbalized understanding and signed the form. Original given to patient's daughter and copy placed in patient?s chart.
--- NOTE | 2024-12-31 10:13 | SWNOTE1 ---
GARY met with pt's daughter in room. Pt's daughter, Abigail, was tearful in discussing her father and his care and the plan moving forward. Abigail voiced she is health care POA. Prior to this pt was at the [facility] for rehab. A few days ago he was up and walking with a walker, a short distance. He was alert and oriented at that time. Prior to going to the [facility], he was at home alone. He was not doing the greatest, but he was getting by. Abigail did check on her father daily at home. She voiced he has a hospital bed at home and a walker. She also stated he did have a few falls at home as well. She also voiced some frustrations with the [facility] as well. Abigail voiced to SW that she wants her dad to be comfortable, she does not want him to stick around for her. She stated she is worried that he is trying to hang on for her. She does not want him to suffer. She is unsure medically if he will approve. Abigail voiced she is uncertain of what to do since her father was alert and oriented 3 days ago, but now she has to make medical decisions for him. Abigail did voice that they have had conversations in regards to code status and that he did not want compressions done. GARY did advise that at this time pt is a full code. SW will reach out to physician to see if he can have a conversation with daughter in regards to code status, daughter in agreement. At this time plan is to see how pt is doing tomorrow to discuss dc planning in further detail. Abigail did let SW know that pt is more awake today, but unsure how much more he will improve. Daughter is unsure if she wants pt to return to the [facility]. Abigail mentioned paying caregivers and taking him home, SW mentioned Hospice as well. GARY did reach out to Dr. Pepe requesting a conversation with daughter in regards to code status. GARY also reviewed the chart and the Health Care Power of [employer] is one file and daughter Abigail is the POA.
--- NOTE | 2024-12-31 12:06 | XR_ITS ---
[place] [id number] Patient Name: TAVO WALLIS MRN: [id number] date: 1940 Sex: M Assigned Patient Location: MS Current Patient Location: MS Accession/Order Number: [id number] Exam Date: 12/31/2024 14:30 Report Date: 12/31/2024 16:52 At the request of: ZAINA SARAVIA DPDanae Procedure: XR foot RT 2V 2 views right foot HISTORY: Heel ulcer. Soft tissue swelling. No radiodense foreign body. Soft tissue defect of the heel. No acute bony destruction. Calcaneal spurring. Decreased bony mineralization. Midfoot degeneration. Distal foot there are degenerative change in. No acute displaced fracture. XR/XR foot RT 2V IMPRESSION: Soft tissue swelling of the heel with ulceration. No plain film findings of osteomyelitis. Impression dictated by: Esa Cardoso M.D. 12/31/2024 4:52 PM Dictation Location: [place] [address] Electronically authenticated by: [id number] Y Date: 12/31/2024 16:52
--- NOTE | 2024-12-31 12:23 | W.ACP ---
Advance Care Planning Advance Care Planning Discussion Advance care planning discussion participants: patient surrogate decision maker Advance care planning discussion summary: I had 25 minutes conversation regarding goals of care and advance care planning with his daughter who is also the POA. Daughter stated that based on his previous wishes, he would not want to receive any heroic measures such as chest compression, shocks, intubation or life support. She stated that he has declined a lot over the last several weeks. She does not want to prolong suffering and/or poor quality living. I answered all of her questions related to that. I will change his CODE STATUS to DNR CCA to reflect his wishes as he relayed to me by his daughter. Furthermore, his daughter stated that if he does not progress well over the next few days then we will have another conversation and discuss a DNR CC. Patient went down for MRI however he could not fit in due to severe kyphosis. He could not lay down on the headrest to proceed with MRI. MRI was canceled.
--- NOTE | 2024-12-31 13:02 | XR_ITS ---
The [address] [address] Patient Name: TAVO WALLIS MRN: [id number] date: 1940 Sex: M Assigned Patient Location: MS Current Patient Location: MS Accession/Order Number: [id number] Exam Date: 12/31/2024 14:30 Report Date: 12/31/2024 16:55 At the request of: SARA GUTIERREZ MD Procedure: XR forearm RT 2V 2 views right forearm HISTORY: Fell injuring right forearm Atherosclerosis. Adequate bony alignment without acute displaced fracture. Wrist degeneration. No radiodense foreign body. XR/XR forearm RT 2V IMPRESSION: No acute displaced fracture. Impression dictated by: Esa Cardoso M.D. 12/31/2024 4:55 PM Dictation Location: [place] [address] Electronically authenticated by: [id number] Y Date: 12/31/2024 16:55
--- NOTE | 2024-12-31 13:02 | XR_ITS ---
[address] [address] Patient Name: TAVO WALLIS MRN: [id number] date: 1940 Sex: M Assigned Patient Location: MS Current Patient Location: MS Accession/Order Number: [id number] Exam Date: 12/31/2024 14:15 Report Date: 12/31/2024 16:39 At the request of: SARA GUTIERREZ MD Procedure: XR humerus RT Plain film right humerus HISTORY: Fell. Adequate alignment without acute displaced fracture. Humeral head anchor screws in place mild degeneration. XR/XR humerus RT IMPRESSION: No acute displaced fracture Impression dictated by: Esa Cardoso M.D. 12/31/2024 4:39 PM Dictation Location: [place] [address] Electronically authenticated by: [id number] Y Date: 12/31/2024 16:39
--- NOTE | 2024-12-31 13:05 | W.PM.WC ---
Wound Consult Note Assessment and Plan (1) Encephalopathy: (2) Lower obstructive uropathy: (3) Decubitus ulcer of right heel, stage 2: Reason for Consult: right heel ulcer Assessment and Plan: Patient with at least a 3 month history of right heel ulcer. Daughter at bedside answers questions as patient is not able to verbalize his history currently due to health status. Daughter states patient uses his heels to push into the floor to move around in wheelchair and she feels like this is the cause of his ulcer. Currently ulcer to his right posterior heel is without signs and symptoms of infection. His ulcer is pink/yellow marbled wound bed with minimal drainage currently. Daughter states he has a large off loading boot to keep pressure off heel but it is large and he does not like to wear it. Daughter states patient may wear something smaller or telecommunication tower technician if that is an option. Showed daughter air waffle boot and she feels patient would wear this without complaints. See wound assessment for details. Dr. Cabrera also consulted to see this patient. I will defer to him on treatment plan. For now heel ulcer is protected with mepilex foam border dressing assessing ulcer/periwound every shift (peel down and reapply dressing) and change foam dressing every 3 days and air waffle boot at all times for off loading. Bedside RN to take photos for chart. Please call [phone] with any questions or concerns. Zeferino Cespeeds, RN, CWON (4) LIS (acute kidney injury): (5) UTI (urinary tract infection): (6) Anemia: (7) Afib: Qualifiers: Atrial fibrillation type: longstanding persistent Qualified Code(s): I48.11 - Longstanding persistent atrial fibrillation Wound Assessment Patient Status Premedicated Prior to Dressing Change: No Wound Right Posterior Heel: Wound Type: Pressure Injury (at least a 3 month history of ulcer per daughter's report) Is This a Chronic Wound: Yes Wound Staging: Stage II (unsure if ulcer was staged previously, admitting physician currently classify at stage 2 pressure injury) Length: 3.3 Width: 1.8 Depth: 0.1 Wound Bed Appearance: [place] and Yellow (pink/yellow marbled wound bed) Wound Margins Description: Well Defined Surrounding Tissue Appearance: [place] (WNL) Surrounding Tissue Temperature: warm (WNL) Drainage Description: Serosanguineous Drainage Amount: Small Drainage Odor: No Odor Primary Dressing: Mepilex border foam dressing Dressing Change Patient Tolerance: Tolerated Well
[2024-12-31 14:23] LABS: Hematocrit 24.3 % (42.0-54.0); Hemoglobin 7.7 g/dL (14.0-18.0)
[2024-12-31 14:45] LABS: Anion Gap 16.0; Blood Urea Nitrogen 42.0 mg/dL (7.0-18.0); Calcium 9.0 mg/dL (8.5-10.1); Carbon Dioxide 23.1 mmol/L (21.0-32.0); Chloride 106 mmol/L (98-107); Estimated GFR (African America 33 (>=60 mL/min/1.73m^2); Estimated GFR (Non-African Ame 27 (>=60 mL/min/1.73m^2); Glucose 70 mg/dL (74-106); Potassium 4.1 mmol/L (3.5-5.1); Sodium 141 mmol/L (136-145)
[2024-12-31] MEDS: IMIPENEM/CILASTATIN SODIUM 500 MG in 0.9 % SODIUM CHLORIDE 100 ML 200 MG IV (15:29)
[2024-12-31] MEDS: ACETAMINOPHEN 325 MG TABLET 650 MG PO (17:12)
--- NOTE | 2024-12-31 21:37 | CA_ITS ---
Patient Name: TAVO WALLIS MR#: [id number] : 1940 Exam Date: 12/31/2024 Ordering Doctor: SARA GUTIERREZ ECHOCARDIOGRAM REPORT PROCEDURE: CA ECHO DOPPLER COMPLETE INDICATIONS: CHF COMPARISON: None. DESCRIPTION: COMPLETE ECHOCARDIOGRAM Real-time transthoracic echocardiography with 2D, M-mode, spectral and color flow Doppler performed. QUALITY: Technical quality was good. LEFT VENTRICLE: Normal chamber size. Thickened septal wall. Moderate concentric hypertrophy. Global left ventricular systolic function is normal. LV EF: Estimated left ventricular ejection fraction is 55-60%. DIASTOLIC: Not adequately assessed due to heart rhythm. ATRIAL SEPTUM: LEFT ATRIUM: Severe dilatation. RIGHT ATRIUM: Severe dilatation. RIGHT VENTRICLE: Mild dilatation. Mildly reduced. Right ventricular systolic function. TRICUSPID VALVE: Thickened with normal mobility. No stenosis with mild regurgitation. Mild pulmonary hypertension. RVSP 38 mmHg. MITRAL VALVE: Mildly thickened with normal mobility. No evidence of mitral valve stenosis. There is no mitral annular calcification. Trivial mitral regurgitation. AORTIC VALVE: Normal trileaflet appearance. Mildly calcified aortic valve. Mildly diminished mobility. Doppler velocity suggest no significant aortic valve stenosis. Mild to moderate aortic regurgitation. AORTIC ROOT: Normal diameter and appearance, measuring 3.8 cm. PULMONIC VALVE: Normal thickness and mobility. No stenosis. Trivial regurgitation. PERICARDIUM: No evidence of pericardial effusion. IVC: Not well visualized. PLEURA: CONCLUSION: 1. Moderate concentric left trickle hypertrophy with normal systolic function. Estimated LVEF is 55 to 60%. 2. Mildly dilated right ventricle with mildly reduced systolic function. 3. Severe biatrial dilatation. 4. Calcified aortic valve with mildly reduced mobility and no significant stenosis. Mild to moderate aortic regurgitation. 5. Mild tricuspid regurgitation. 6. Mildly elevated right-sided pressures. Adult Echocardiography Procedure Report Left Ventricle LVEDD (3.7 - 5.6 cm): 4.09 cm LVESD (2.2 - 4.0 cm): 2.83 cm LVIVS thickness (0.6 - 1.2 cm): 1.75 cm LVPW thickness (0.5 - 1.0 cm): 1.04 cm e': 0.13 m/s E - e': 10.72 LVOT Max Gradient: 1.52 mm[Hg] LVOT Area (cm2): 0.62 m/s Peak Velocity (LVOT): 0.62 m/s Mean Velocity (LVOT): 0.41 m/s LVOT Diameter 2.22 cm Left Ventricular Ejection Fraction: 55-60 % Left Atrium LA Volume Index (2D A2C): 74.10 ml/m2 Left Atrium Systolic Dimension: 5.86 cm Mitral Valve MV E to A Ratio: 88.32 Mitral Valve A-Wave Peak Velocity: 0.02 m/s Mitral Valve E-Wave Peak Velocity: 1.37 m/s Right Ventricle RV Internal Diastolic Dimension: 4.65 cm Aorta AO Root Diam: 3.82 cm Ascending Ao Diam: 2.95 cm Aortic Valve Deceleration Branch: 2.66 m/s2 Pressure Half-Time: 453.98 ms Peak Velocity(Antegrade Flow): 1.41 m/s Peak Gradient(Antegrade Flow): 7.95 mm[Hg] Mean Velocity(Antegrade Flow): 0.97 m/s Mean Gradient(Antegrade Flow): 4.33 mm[Hg] Velocity Time Integral: 25.78 cm Tricuspid Valve Peak Velocity (Regurgitant Flow): 2.45 m/s, 2.73 m/s, 2.97 m/s Pulmonic Valve Mean Gradient: 2.99 mm[Hg], 3.00 mm[Hg], 3.16 mm[Hg], 2.33 mm[Hg], 2.52 mm[Hg], 1.81 mm[Hg] Mean Velocity: 0.82 m/s, 0.82 m/s, 0.85 m/s, 0.73 m/s, 0.76 m/s, 0.61 m/s Peak Velocity: 1.07 m/s Peak Gradient: 4.98 mm[Hg], 4.98 mm[Hg], 5.47 mm[Hg], 4.24 mm[Hg], 4.24 mm[Hg], 3.81 mm[Hg] Right Atrium Right Atrium Systolic Pressure: 86.66 ml, 86.66 ml Dictated by: Rashid Apple M.D. on 01/01/2025 at 13:25 Approved by: Rashid Apple M.D. on 01/01/2025 at 13:31
[2024-12-31 21:54] LABS: Hematocrit 26.0 % (42.0-54.0); Hemoglobin 8.3 g/dL (14.0-18.0)
[2024-12-31] MEDS: PANTOPRAZOLE SODIUM 40 MG VIAL IV (22:01)
[2024-12-31] MEDS: ATORVASTATIN CALCIUM 40 MG TABLET PO (22:01)
[2024-12-31 22:09] LABS: Anion Gap 12.1; Blood Urea Nitrogen 41.0 mg/dL (7.0-18.0); Calcium 8.6 mg/dL (8.5-10.1); Carbon Dioxide 25.0 mmol/L (21.0-32.0); Chloride 108 mmol/L (98-107); Estimated GFR (African America 34 (>=60 mL/min/1.73m^2); Estimated GFR (Non-African Ame 28 (>=60 mL/min/1.73m^2); Glucose 107 mg/dL (74-106); Potassium 4.1 mmol/L (3.5-5.1); Sodium 141 mmol/L (136-145)
[2025-01-01] VITALS (73 sets, daily range): BP systolic 117–155; BP diastolic 61–88; PULSE 65–787; TEMP 36.8–39.4; O2SAT 94–98
[2025-01-01] MEDS: DILTIAZEM HCL 25 MG/5 ML VIAL 5 MG IV ×3 (00:39→08:36)
[2025-01-01] MEDS: IMIPENEM/CILASTATIN SODIUM 500 MG in 0.9 % SODIUM CHLORIDE 100 ML 200 MG IV ×2 (04:45→17:28)
[2025-01-01 05:40] LABS: Hemoglobin 7.6 g/dL (14.0-18.0); Mean Corpuscular HGB Conc 32.2 g/dL (29.9-35.2); Mean Corpuscular Hemoglobin 28.9 pg (25.9-34.0); Mean Corpuscular Volume 89.7 fL (80.0-94.0); Platelet Count 208 10^3/uL (150-450); Red Blood Count 2.63 10^6/uL (4.70-6.10); White Blood Count 6.8 10^3/uL (4.0-11.0)
[2025-01-01 06:01] LABS: Alanine Aminotransferase 11 U/L (16-63); Albumin Globulin Ratio 0.6; Albumin Level 2.2 g/dL (3.4-5.0); Alkaline Phosphatase 92 U/L (46-116); Anion Gap 13.7; Aspartate Amino Transferase 14 U/L (15-37); Blood Urea Nitrogen 39.0 mg/dL (7.0-18.0); Calcium 8.6 mg/dL (8.5-10.1); Carbon Dioxide 25.1 mmol/L (21.0-32.0); Chloride 106 mmol/L (98-107); Estimated GFR (African America 38 (>=60 mL/min/1.73m^2); Estimated GFR (Non-African Ame 31 (>=60 mL/min/1.73m^2); Globulin 3.6 g/dL; Glucose 88 mg/dL (74-106); Potassium 3.8 mmol/L (3.5-5.1); Sodium 141 mmol/L (136-145); Total Protein 5.8 g/dL (6.4-8.2)
[2025-01-01 06:31] LABS: Hematocrit 23.6 % (42.0-54.0)
[2025-01-01 07:08] LABS: Vitamin B12 561 pg/mL (232-1245)
[2025-01-01] MEDS: HEPARIN SODIUM (PORCINE) 5,000 UNIT/ML VIAL 5000 UNIT SUBQ ×3 (08:35→21:03)
[2025-01-01] MEDS: LEVOTHYROXINE SODIUM 100 MCG VIAL 50 MCG IV (08:36)
[2025-01-01] MEDS: ALLOPURINOL 300 MG TABLET PO (08:42)
[2025-01-01] MEDS: 0.9 % SODIUM CHLORIDE 10 ML VIAL 5 ML IV (08:42)
--- NOTE | 2025-01-01 09:10 | CM.NOTE ---
Rounds made with Dr. Pepe, discussed plan of care with pt and daughter. No discharge today.
[2025-01-01] MEDS: FLUCONAZOLE IN NACL,ISO-OSM 200 MG/100 ML PREMIX 100 MG IV (09:18)
--- NOTE | 2025-01-01 11:21 | P.PN_ITS ---
Progress Note: Subjective Subjective Interval history: Patient is much more awake compared to yesterday. Able to answer a few questions. Able to eat and drink. Able to follow simple commands Exam Narrative Exam Narrative: Patient is much more awake compared to yesterday. Able to focus. Able to look at me. Able to follow simple command. Able to lift up his arms against gravity but not against resistance. Barely able to move his legs sideways. Chest is clear, heart is irregular. Abdomen soft. Lower extremities +1 pitting edema. Stage II at least ulceration involving the right heel. Constitutional Vital Signs, click to edit/add: Last Vital Signs Temp 100.0 F 01/01/25 07:15 Pulse 74 01/01/25 09:50 Resp 18 01/01/25 07:15 BP 122/68 01/01/25 07:15 Pulse Ox 95 01/01/25 07:15 O2 Del Method Room Air 01/01/25 07:15 Progress Note: Objective Labs Labs: Short CBC 12/31/24 12/31/24 01/01/25 Range/Units 14:13 21:50 05:19 WBC 6.8 (4.0-11.0) 10^3/uL Hgb 7.7 L 8.3 L 7.6 L (14.0-18.0) g/dL Hct 24.3 L 26.0 L 23.6 L* (42.0-54.0) % Plt Count 208 (150-450) 10^3/uL BMP 12/31/24 12/31/24 01/01/25 14:13 21:50 05:19 Sodium 141 141 141 Potassium 4.1 4.1 3.8 Chloride 106 108 H 106 Carbon Dioxide 23.1 25.0 25.1 BUN 42.0 H 41.0 H 39.0 H Creatinine 2.30 H 2.26 H 2.05 H Glucose 70 L 107 H 88 Calcium 9.0 8.6 8.6 Liver Function 01/01/25 Range/Units 05:19 Total Bilirubin 0.5 (0.2-1.0) mg/dL AST 14 L (15-37) U/L ALT 11 L (16-63) U/L Alkaline Phosphatase 92 (46-116) U/L Albumin 2.2 L (3.4-5.0) g/dL Progress Note: A&P Assessment and Plan (1) Encephalopathy: (2) Lower obstructive uropathy: (3) Decubitus ulcer of right heel, stage 2: (4) LIS (acute kidney injury): (5) UTI (urinary tract infection): (6) Anemia: (7) Afib: Qualifiers: Atrial fibrillation type: longstanding persistent Qualified Code(s): I48.11 - Longstanding persistent atrial fibrillation Plan Altered mental status. 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 This has been going on at least for 3 days. Patient was sent from the skilled nursing to the emergency room on 12/27 due to altered mental status for a day or 2 prior to that. Patient was sent back to the nursing facility however he continued to have altered mentation therefore he was sent back to the emergency room yesterday. I had accepted to admit him back to the hospital for CAT scan of the brain came back negative for acute intracranial process I started patient on aspirin rectally daily I requested MRI of the brain rule out acute stroke. At this time I given the altered mental status started at least 4 days prior to this admission he would not qualify for thrombolysis or thrombectomy. If MRI is positive for stroke then we will initiate stroke comprehensive evaluation including carotid, echo. Fix his metabolic derangement The possibility of CONTRACT LOADER infection is low but not completely excluded 01/01: Unfortunately, patient could not have MRI due to severe kyphosis and inability to place his head into the head compartment. Significant of the noticeable improvement of mental status since yesterday. Likely secondary to improvement of his metabolic derangement. His neck it is much more supple compared to yesterday. Less likely acute CVA and/or meningitis and/or encephalitis given the improvement within 24 hours. Continue aspirin. Control antibiotic Continue IV fluid of for LIS. LIS, likely caused by obstructive uropathy as well as dehydration and volume loss. Patient has significantly dry buccal mucosa. Patient had a Chou catheter at the skilled nursing which was not draining. 1 L of urine drained out after Chou exchange. I am hoping that his kidney function will improve. Started patient on IV fluid infusion suspecting post obstructive polyuria. UTI. Urine culture is growing yeast I started patient on Diflucan. Previous urine culture came back positive for E. coli and Pseudomonas therefore I added meropenem. At this stage II right heel ulceration. Requested wound culture. Requested arterial study. 2nd dose of vancomycin. Requested podiatry consultation. Arterial study does not show any significant arterial disease clinically there is no evidence of acute arterial compromise such as cyanosis or change or temperature Defer for any diagnostic and therapeutic invention until his wound to podiatry. May need to have MRI at some point to exclude osteomyelitis Bilateral lower extremities edema. Rule out DVT. Ultrasound venous study is ordered. Venous study does not show any DVT. Chronic atrial fibrillation. Patient is on Cardizem but unable to take Cardizem p.o. now Started him on Cardizem IV Patient is not on anticoagulation. He is at risk of embolic stroke but need to investigate further why he is not on anticoagulation I suspect that he has contraindication. Start the patient on heparin subcu for now. Switch Cardizem to oral now that the patient is able to take p.o. Anemia. Hemoglobin is lower than baseline. Requested iron study and ferritin which came back consistent with mixed etiology. Iron deficiency and chronic disease. Requested stool Hemoccult Started patient on PPI Monitor his hemoglobin. Patient will likely require to have anemia workup to be done in the outpatient setting to be handled by PCP in collaboration with other needed outpatient providers. This may include but not limited to EGD, colonoscopy, referral to see hematology and other needed age-appropriate cancer screening. Patient status is adynamic and evolutionary therefore the aforementioned assessment and plan may or may not be complete or conclusive. The patient would likely require to have additional workup, investigation, therapeutic intervention, consultation, probably transfer to tertiary care center based on clinical progression and follow-up test result. I had discussed this case with his daughter at the bedside. I provided her information about his disease, prognosis, expectation and trajectory. Answered all of questions Urinary Catheter Management Urinary Catheter Management 2-way Urethral: Cath placed during this visit: yes Urethral indwelling: Yes Reason for continuing: not indwelling catheter Insertion date: 12/30/24
[2025-01-01] MEDS: DILTIAZEM HCL 120 MG CAP.ER.24H PO (11:49)
[2025-01-01] MEDS: IRON SUCROSE COMPLEX 200 MG in 0.9 % SODIUM CHLORIDE 100 ML 220 MG IV (11:55)
[2025-01-01] MEDS: VANCOMYCIN HCL 1,000 MG in 0.9 % SODIUM CHLORIDE 250 ML 250 MG IV (12:23)
--- NOTE | 2025-01-01 12:58 | PM.CN ---
Consult Note: [facility] Data of Consult Consult date: 01/01/25 Requesting Physician: Sha Pepe MD Primary Care Provider: Feliciano Ambrosio DO Consult Narrative Reason for consult: right heel ulcer Narrative: Patient seen at bedside. He was admitted on 12/30 for acute kidney injury and altered mental status. At time of discharge he had mild elevation in WBC with leukocytosis of 11.9 which has normalized and is 6.8 today. He is anemic as well. I did order x-rays yesterday which demonstrate no definitive signs of osteomyelitis or bony destruction. Arterial Dopplers demonstrate mild stenosis with no occlusion and there is no DVT on venous Doppler. An MRI of brain was ordered however patient was unable to complete the study due to back issues. Today he relates that he is feeling better. He was awake and sitting up. He is a poor historian but related that the ulcer has been there for a couple of months. Chart review states that ulcer has been present for 3 months. He relates to pain with pressure to the area and he is currently in a bunny boot. He does reside in [facility] facility. He denies nausea, vomiting, fever, chills and does admit to localized right heel pain with any pressure. cc:: CC: Sha Pepe MD Review of Systems ROS Status of ROS 10 or more systems reviewed and unremarkable except as noted in history and below [facility] [place] Medical History (Updated 12/31/24 @ 08:50 by Sha Pepe MD) Fluid collection at surgical site ?T88.8XXA - Other specified complications of surgical and medical care, 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, initial encounter (ICD-10) Acute on chronic renal failure ?N17.9 - Acute kidney failure, unspecified (ICD-10) ?N18.9 - Chronic kidney disease, unspecified (ICD-10) Acute on chronic diastolic CHF (congestive heart failure) ?I50.33 - Acute on chronic diastolic (congestive) heart failure (ICD-10) 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 - Diverticulum of esophagus, acquired (ICD-10) Encounter for screening colonoscopy ?Z12.11 - Encounter for screening for malignant neoplasm of colon (ICD-10) Sleep apnea ?G47.30 - Sleep apnea, unspecified (ICD-10) Gastric ulcer ?K25.9 - Gastric ulcer, unspecified as acute or chronic, without hemorrhage or perforation (ICD-10) DJD (degenerative joint disease) ?M19.90 - Unspecified osteoarthritis, unspecified site (ICD-10) Dehydration ?E86.0 - Dehydration (ICD-10) Altered mental state ?R41.82 - Altered mental status, unspecified (ICD-10) Falls ?R29.6 - Repeated falls (ICD-10) Bladder retention ?R33.9 - Retention of urine, unspecified (ICD-10) Constipation ?K59.00 - Constipation, unspecified (ICD-10) Pleural effusion ?J90 - Pleural effusion, 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 (ICD-10) Bakers cyst ?M71.20 - Synovial cyst of popliteal space [[place]], unspecified knee (ICD-10) Cardiomyopathy ?I42.9 - Cardiomyopathy, unspecified (ICD-10) Cellulitis ?L03.90 - Cellulitis, unspecified (ICD-10) Gout ?M10.9 - Gout, unspecified (ICD-10) Meningioma, spinal ?D32.1 - Benign neoplasm of spinal meninges (ICD-10) Tinnitus ?H93.19 - Tinnitus, unspecified ear (ICD-10) BPH (benign prostatic hyperplasia) ?N40.0 - Benign prostatic hyperplasia without lower urinary tract symptoms (ICD-10) Insomnia ?G47.00 - Insomnia, unspecified (ICD-10) PVD (peripheral vascular disease) ?I73.9 - Peripheral vascular disease, unspecified (ICD-10) CHF (congestive heart failure) ?I50.9 - Heart failure, unspecified (ICD-10) Cataracts, bilateral ?H26.9 - Unspecified cataract (ICD-10) Low back pain ?M54.50 - Low back pain, unspecified (ICD-10) Hypercholesterolemia ?E78.00 - Pure hypercholesterolemia, unspecified (ICD-10) Surgical History (Updated 04/13/24 @ 10:32 by Yoli High RN) H/O lithotripsy ?Z98.890 - Other specified postprocedural states (ICD-10) H/O laminectomy ?Z98.890 - Other specified postprocedural states (ICD-10) H/O sinus surgery ?Z98.890 - Other specified postprocedural states (ICD-10) History of back surgery ?Z98.890 - Other specified postprocedural states (ICD-10) History of esophagogastroduodenoscopy (EGD) ?Z98.890 - Other specified postprocedural states (ICD-10) History of total knee arthroplasty ?Z96.659 - Presence of unspecified artificial knee joint (ICD-10) History of hip replacement ?Z96.649 - Presence of unspecified artificial hip joint (ICD-10) Previous back surgery ?Z98.890 - Other specified postprocedural states (ICD-10) History of shoulder surgery ?Z98.890 - Other specified postprocedural states (ICD-10) Family History (Updated 04/13/24 @ 10:34 by Yoli High RN) Other Alzheimers disease Cirrhosis Family history of cancer Family history of diabetes mellitus Family history of hypertension Family history of myocardial infarction Heart disease Social History (Updated 04/13/24 @ 10:36 by Yoli High, RN) Within the past year, how often did you have a drink containing alcohol: 4 or more times a week Smoking status: Former smoker Second hand tobacco smoke exposure: Yes Non-prescribed substance use: denies use Previous occupational history: Retired- [employer] Highest level of school completed/degree received: high school graduate Little interest or pleasure in doing things: not at all Feeling down, depressed, or hopeless: not at all Meds Home Medications and Allergies Home Medications ?Medication ?Instructions ?Recorded ?Confirmed ?Type acetaminophen 500 mg oral powder 1,000 mg PO .q8 PRN pain 01/06/23 12/30/24 History packet (Tylenol Extra Strength) allopurinol 300 mg tablet 300 mg PO DAILY 01/06/23 12/30/24 History atorvastatin 40 mg tablet 40 mg PO DAILY 01/06/23 12/30/24 History bumetanide 1 mg tablet 1 mg PO DAILY 01/06/23 12/30/24 History eszopiclone 3 mg tablet 3 mg PO BEDTIME 01/06/23 12/30/24 History potassium chloride 20 mEq 20 meq PO DAILY 01/06/23 12/30/24 History tablet,extended release(part/cryst) trazodone 50 mg tablet 50 mg PO DAILY PRN insomnia 01/06/23 12/30/24 History levothyroxine 150 mcg tablet 150 mcg PO .qd 04/13/24 12/30/24 History magnesium oxide 400 mg (241.3 mg 400 mg PO .qd 04/13/24 12/30/24 History magnesium) tablet baclofen 10 mg tablet 10 mg PO BID PRN backpain 12/30/24 12/30/24 History budesonide 0.5 mg/2 mL suspension 0.5 mg inhalation Q12H 12/30/24 12/30/24 History for nebulization diltiazem HCl 30 mg tablet 30 mg PO BID 12/30/24 12/30/24 History doxycycline hyclate 100 mg capsule 100 mg PO Q12H 12/30/24 12/30/24 History ipratropium 0.5 mg-albuterol 3 mg 3 ml inhalation Q8H 12/30/24 12/30/24 History (2.5 mg base)/3 mL nebulization soln nystatin 100,000 unit/gram topical 1 applic topical BID 12/30/24 12/30/24 History powder (Klayesta) pramipexole 0.25 mg tablet 0.25 mg PO QDAY PRN tremors 12/30/24 12/30/24 History Allergies Allergy/AdvReac Type Severity Reaction Status Date / Time fentanyl (From Duragesic) Allergy Unknown Agitated Verified 12/30/24 16:11 indomethacin (From Indocin) Allergy Unknown Agitated Verified 12/30/24 16:11 Penicillins Allergy Unknown Rash Verified 12/30/24 16:11 zolpidem (From Ambien) Allergy Agitated Verified 12/30/24 16:11 Exam Narrative Exam Narrative: Skin: Full-thickness ulceration which measures 3.3 x 1.8 cm. Wound base is primarily granular with mild fibrotic tissue. There is tissue covering bone and no obvious bone exposure after peeling back the dressing. No surrounding erythema. No fluctuance or evidence of abscess or acute infection Vascular: Pedal pulses are nonpalpable which may be secondary to swelling. Bilateral lower extremities with +2 edema. Capillary refill is less than 5 seconds bilaterally Neuro: Light touch sensation is intact to the plantar foot and there is no pain out of proportion Musculoskeletal: There is pain on direct palpation to the ulcer. Patient is able to plantarflex and dorsiflex at the ankle but is weak. Mild chronic toe contractures noted bilaterally Constitutional Vital Signs, click to edit/add: Last Vital Signs Temp 100.0 F 01/01/25 07:15 Pulse 96 H 01/01/25 12:05 Resp 20 01/01/25 12:05 BP 155/88 H 01/01/25 12:05 Pulse Ox 97 01/01/25 12:05 O2 Del Method Room Air 01/01/25 12:05 Results Labs Labs: Short CBC 12/31/24 12/31/24 01/01/25 Range/Units 14:13 21:50 05:19 WBC 6.8 (4.0-11.0) 10^3/uL Hgb 7.7 L 8.3 L 7.6 L (14.0-18.0) g/dL Hct 24.3 L 26.0 L 23.6 L* (42.0-54.0) % Plt Count 208 (150-450) 10^3/uL BMP 12/31/24 12/31/24 01/01/25 14:13 21:50 05:19 Sodium 141 141 141 Potassium 4.1 4.1 3.8 Chloride 106 108 H 106 Carbon Dioxide 23.1 25.0 25.1 BUN 42.0 H 41.0 H 39.0 H Creatinine 2.30 H 2.26 H 2.05 H Glucose 70 L 107 H 88 Calcium 9.0 8.6 8.6 Liver Function 01/01/25 Range/Units 05:19 Total Bilirubin 0.5 (0.2-1.0) mg/dL AST 14 L (15-37) U/L ALT 11 L (16-63) U/L Alkaline Phosphatase 92 (46-116) U/L Albumin 2.2 L (3.4-5.0) g/dL Assessment and Plan Assessment and Plan (1) Encephalopathy: (2) Lower obstructive uropathy: (3) Decubitus ulcer of right heel, stage 2: (4) LIS (acute kidney injury): (5) UTI (urinary tract infection): (6) Anemia: (7) Afib: Qualifiers: Atrial fibrillation type: longstanding persistent Qualified Code(s): I48.11 - Longstanding persistent atrial fibrillation Plan Patient seen at bedside. Currently receiving antibiotics for UTI and WBC has normalized. I agree with wound nurse's assessment and recommendations for dressing changes. Strict offloading with bunny boots X-rays reviewed and show no plain film evidence of osteomyelitis. MRI would be most sensitive test to determine if osteomyelitis is present however he may not be able to tolerate due to postural and ongoing medical issues. CT scan with contrast would be next best option however given status to kidneys this is not recommended at this time. I discussed the case with Dr. Pepe, hospitalist, and if MRI cannot be obtained during this admission I will continue to evaluate the patient as an outpatient and could order at a later date especially if ulceration does not progress as expected. Fortunately at this time he does not have any evidence of abscess or acute cellulitis and plain radiographs show no bony destruction. Patient should follow-up with me in the wound center a week after discharge I will sign off at this time but please reach out if any changes or issues arise
--- NOTE | 2025-01-01 13:39 | CM.NOTE ---
I called the patients daughter to discuss discharge planning and she is agreeable to a alf facility upon discharge. She said that if [facility] bed available she would be ok with him returning there and if not she would like us to try the [facility].
[2025-01-01] MEDS: ACETAMINOPHEN 325 MG TABLET 650 MG PO (14:27)
--- NOTE | 2025-01-01 15:04 | CM.NOTE ---
I notified the daughter that [facility] [place] currently does not have any bed availability. She was a little disappointed due to her father just leaving there but she was agreeable to start the process with the [facility] at this time.
--- NOTE | 2025-01-01 15:10 | CM.NOTE ---
CM faxed new referral to [facility] for skilled.
[2025-01-01] MEDS: ATORVASTATIN CALCIUM 40 MG TABLET PO (21:02)
[2025-01-02] VITALS (18 sets, daily range): BP systolic 115–129; BP diastolic 62–80; PULSE 72–95; TEMP 36.4–37.1; O2SAT 93–98
[2025-01-02] MEDS: IMIPENEM/CILASTATIN SODIUM 500 MG in 0.9 % SODIUM CHLORIDE 100 ML 200 MG IV (03:23)
[2025-01-02 05:53] LABS: Hematocrit 25.2 % (42.0-54.0); Hemoglobin 8.1 g/dL (14.0-18.0); Mean Corpuscular HGB Conc 32.1 g/dL (29.9-35.2); Mean Corpuscular Hemoglobin 28.6 pg (25.9-34.0); Mean Corpuscular Volume 89.0 fL (80.0-94.0); Platelet Count 190 10^3/uL (150-450); Red Blood Count 2.83 10^6/uL (4.70-6.10); White Blood Count 7.2 10^3/uL (4.0-11.0)
[2025-01-02] MEDS: LEVOTHYROXINE SODIUM 75 MCG TABLET 150 MCG PO (05:57)
[2025-01-02] MEDS: HEPARIN SODIUM (PORCINE) 5,000 UNIT/ML VIAL 5000 UNIT SUBQ ×3 (05:58→21:45)
[2025-01-02 06:15] LABS: Alanine Aminotransferase 9 U/L (16-63); Albumin Globulin Ratio 0.6; Albumin Level 2.3 g/dL (3.4-5.0); Alkaline Phosphatase 86 U/L (46-116); Anion Gap 11.5; Aspartate Amino Transferase 20 U/L (15-37); Blood Urea Nitrogen 30.0 mg/dL (7.0-18.0); Calcium 8.6 mg/dL (8.5-10.1); Carbon Dioxide 24.1 mmol/L (21.0-32.0); Chloride 104 mmol/L (98-107); Estimated GFR (African America 50 (>=60 mL/min/1.73m^2); Estimated GFR (Non-African Ame 41 (>=60 mL/min/1.73m^2); Globulin 3.7 g/dL; Glucose 96 mg/dL (74-106); Potassium 3.6 mmol/L (3.5-5.1); Sodium 136 mmol/L (136-145); Total Protein 6.0 g/dL (6.4-8.2)
--- NOTE | 2025-01-02 08:20 | CM.NOTE ---
Rounds made with Dr. Pepe, discussed with pt plan of care. CM updated SW that [facility] will accept pt, updated Dr. Pepe with discharge planning.
--- NOTE | 2025-01-02 09:01 | SWNOTE1 ---
GARY received an email from Mitzi at [facility] and they are able to accept and they do have a bed available. GARY let case management know.
--- NOTE | 2025-01-02 09:46 | CM.NOTE ---
Spoke with RN at Dr. Ambrosio office in regards to pt not being on Eliquis. RN will fax documentation to CM. Documentation then given to Dr. Pepe, pt high risk for falls and past subdural hematoma.
[2025-01-02] MEDS: IRON SUCROSE COMPLEX 200 MG in 0.9 % SODIUM CHLORIDE 100 ML 220 MG IV (09:51)
[2025-01-02] MEDS: ALLOPURINOL 300 MG TABLET PO (09:51)
[2025-01-02] MEDS: PANTOPRAZOLE SODIUM 40 MG TABLET.DR PO (09:51)
[2025-01-02] MEDS: DILTIAZEM HCL 120 MG CAP.ER.24H PO (09:52)
[2025-01-02] MEDS: FLUCONAZOLE IN NACL,ISO-OSM 200 MG/100 ML PREMIX 100 MG IV (10:38)
--- NOTE | 2025-01-02 11:09 | P.PN_ITS ---
Progress Note: Subjective Subjective Interval history: Patient is much more awake compared to yesterday. Able to answer a few questions. Able to eat and drink. Able to follow simple commands Uneventful night otherwise. No other reported issues by patient and/or nursing staff. Exam Narrative Exam Narrative: Patient is much more awake compared to yesterday. Able to focus. Able to look at me. Able to follow simple command. Able to lift up his arms against gravity but not against resistance. Barely able to move his legs sideways. Chest is clear, heart is irregular. Abdomen soft. Lower extremities +1 pitting edema. Stage II at least ulceration involving the right heel. Neck is very supple. Constitutional Vital Signs, click to edit/add: Last Vital Signs Temp 97.9 F 01/02/25 08:00 Pulse 86 01/02/25 09:56 Resp 20 01/02/25 08:00 BP 123/72 01/02/25 08:00 Pulse Ox 98 01/02/25 08:00 O2 Del Method Room Air 01/02/25 08:00 Progress Note: Objective Labs Labs: Short CBC 01/02/25 Range/Units 05:42 WBC 7.2 (4.0-11.0) 10^3/uL Hgb 8.1 L (14.0-18.0) g/dL Hct 25.2 L (42.0-54.0) % Plt Count 190 (150-450) 10^3/uL BMP 01/02/25 05:42 Sodium 136 Potassium 3.6 Chloride 104 Carbon Dioxide 24.1 BUN 30.0 H Creatinine 1.62 H Glucose 96 Calcium 8.6 Liver Function 01/02/25 Range/Units 05:42 Total Bilirubin 1.0 (0.2-1.0) mg/dL AST 20 (15-37) U/L ALT 9 L (16-63) U/L Alkaline Phosphatase 86 (46-116) U/L Albumin 2.3 L (3.4-5.0) g/dL Progress Note: A&P Assessment and Plan (1) Encephalopathy: (2) Lower obstructive uropathy: (3) Decubitus ulcer of right heel, stage 2: (4) LIS (acute kidney injury): (5) UTI (urinary tract infection): (6) Anemia: (7) Afib: Qualifiers: Atrial fibrillation type: longstanding persistent Qualified Code(s): I48.11 - Longstanding persistent atrial fibrillation Plan Altered mental status. Likely metabolic encephalopathy and less likely acute/subacute primary INDUSTRIAL REGISTERED NURSE insult. This has been going on at least for 3 days prior to admission. Patient was sent from the residential to the emergency room on 12/27 due to altered mental status for a day or 2 prior to that. Patient was sent back to the nursing facility however he continued to have altered mentation therefore he was sent back to the emergency room yesterday. I had accepted to admit him back to the hospital for CAT scan of the brain came back negative for acute intracranial process I started patient on aspirin rectally daily I requested MRI of the brain rule out acute stroke. At this time I given the altered mental status started at least 4 days prior to this admission he would not qualify for thrombolysis or thrombectomy. If MRI is positive for stroke then we will initiate stroke comprehensive evaluation including carotid, echo. Fix his metabolic derangement The possibility of INDUSTRIAL REGISTERED NURSE infection is low but not completely excluded 01/02: Unfortunately, patient could not have MRI due to severe kyphosis and inability to place his head into the head compartment. Significant of the noticeable improvement of mental status since yesterday. Likely secondary to improvement of his metabolic derangement. His neck it is much more supple compared to admission. Less likely acute CVA and/or meningitis and/or encephalitis given the improvement within 24 hours. Continue aspirin. Control antibiotic Continue IV fluid of for LIS. LIS, likely caused by obstructive uropathy as well as dehydration and volume loss. Patient has significantly dry buccal mucosa. Patient had a Chou catheter at the residential which was not draining. 1 L of urine drained out after Chou exchange. I am hoping that his kidney function will improve. Started patient on IV fluid infusion suspecting post obstructive polyuria. Kidney function is back to baseline which is creatinine around 1.6. IV fluid has been discontinued. UTI. Urine culture is growing yeast I started patient on Diflucan. Previous urine culture came back positive for E. coli and Pseudomonas therefore I added meropenem. Waiting for final culture report At this stage II right heel ulceration. Requested wound culture. Requested arterial study. 2nd dose of vancomycin. Requested podiatry consultation. Arterial study does not show any significant arterial disease clinically there is no evidence of acute arterial compromise such as cyanosis or change or temperature Discussed this case with the tower dragline operator Dr. Cabrera. Could not clinically exclude the possibility of osteomyelitis. Patient could not lay flat for brain MRI. Consideration for CT he will to see if we can see any radiological osteomyelitis Meanwhile continue antibiotic pending wound culture report. Bilateral lower extremities edema. Rule out DVT. Ultrasound venous study is ordered. Venous study does not show any DVT. Chronic atrial fibrillation. Patient is on Cardizem but unable to take Cardizem p.o. now Started him on Cardizem IV Patient is not on anticoagulation. I reviewed his record at [facility]. Patient had a subdural hematoma in October. Anticoagulation risk and benefit discussion took place and the decision was made not to put him on anticoagulation due to recurrent falls and recent subdural hematoma. Patient was recommended to have Watchman device by cardiology. Patient and his daughter elected not to proceed at that time. Continue Cardizem Anemia. Hemoglobin is lower than baseline. Requested iron study and ferritin which came back consistent with mixed etiology. Iron deficiency and chronic disease. Requested stool Hemoccult Started patient on PPI Monitor his hemoglobin. Patient will likely require to have anemia workup to be done in the outpatient setting to be handled by PCP in collaboration with other needed outpatient providers. This may include but not limited to EGD, colonoscopy, referral to see hematology and other needed age-appropriate cancer screening. Patient status is adynamic and evolutionary therefore the aforementioned assessment and plan may or may not be complete or conclusive. The patient would likely require to have additional workup, investigation, therapeutic intervention, consultation, probably transfer to tertiary care center based on clinical progression and follow-up test result. I had discussed this case with his daughter at the bedside on 12/31 and 01/01. I provided her information about his disease, prognosis, expectation and trajectory. Answered all of questions Urinary Catheter Management Urinary Catheter Management 2-way Urethral: Cath placed during this visit: yes Urethral indwelling: Yes Reason for continuing: urinary obstruction Insertion date: 12/30/24
--- NOTE | 2025-01-02 12:34 | SWNOTE1 ---
GARY faxed updated OT, physician notes, labs, vitals, and diagnostic imaging to Mitzi at [facility].
--- NOTE | 2025-01-02 13:34 | SWNOTE1 ---
GARY stopped in pt's room. Pt was sitting up eating his lunch, grilled cheese, and was able to converse. GARY asked if his daughter had been in? He stated no, she was coming later. SW asked if she was working? He stated yes. SW did ask if he was feeling better? He stated yes. GARY advised that SW will call his daughter, lucila in agreement. GARY called pt's daughter, Abigail, and let her know that pt has been accepted to [facility] once he is ready for discharge. SW let her know that pt was eating lunch at this time. She voiced she will be up to hospital around 3:30pm.
[2025-01-02] MEDS: IMIPENEM/CILASTATIN SODIUM 500 MG in 0.9 % SODIUM CHLORIDE 100 ML 100 MG IV (15:28)
[2025-01-02] MEDS: ACETAMINOPHEN 325 MG TABLET 650 MG PO (17:30)
[2025-01-02] MEDS: ATORVASTATIN CALCIUM 40 MG TABLET PO (21:45)
[2025-01-03] VITALS (24 sets, daily range): BP systolic 103–118; BP diastolic 60–73; PULSE 57–84; TEMP 36.4–36.9; O2SAT 91–95
[2025-01-03] MEDS: ACETAMINOPHEN 325 MG TABLET 650 MG PO ×3 (01:14→19:29)
[2025-01-03] MEDS: IMIPENEM/CILASTATIN SODIUM 500 MG in 0.9 % SODIUM CHLORIDE 100 ML 200 MG IV (04:15)
[2025-01-03 05:31] LABS: Hematocrit 24.3 % (42.0-54.0); Hemoglobin 7.8 g/dL (14.0-18.0); Mean Corpuscular HGB Conc 32.1 g/dL (29.9-35.2); Mean Corpuscular Hemoglobin 28.6 pg (25.9-34.0); Mean Corpuscular Volume 89.0 fL (80.0-94.0); Platelet Count 180 10^3/uL (150-450); Red Blood Count 2.73 10^6/uL (4.70-6.10); White Blood Count 5.9 10^3/uL (4.0-11.0)
[2025-01-03 05:49] LABS: Alanine Aminotransferase 7 U/L (16-63); Albumin Globulin Ratio 0.6; Albumin Level 2.0 g/dL (3.4-5.0); Alkaline Phosphatase 82 U/L (46-116); Anion Gap 13.7; Aspartate Amino Transferase 17 U/L (15-37); Blood Urea Nitrogen 24.0 mg/dL (7.0-18.0); Calcium 8.4 mg/dL (8.5-10.1); Carbon Dioxide 22.6 mmol/L (21.0-32.0); Chloride 102 mmol/L (98-107); Estimated GFR (African America >60 (>=60 mL/min/1.73m^2); Estimated GFR (Non-African Ame 54 (>=60 mL/min/1.73m^2); Globulin 3.6 g/dL; Glucose 87 mg/dL (74-106); Potassium 3.3 mmol/L (3.5-5.1); Sodium 135 mmol/L (136-145); Total Protein 5.6 g/dL (6.4-8.2)
[2025-01-03] MEDS: LEVOTHYROXINE SODIUM 75 MCG TABLET 150 MCG PO (06:20)
[2025-01-03] MEDS: HEPARIN SODIUM (PORCINE) 5,000 UNIT/ML VIAL 5000 UNIT SUBQ ×3 (06:20→21:08)
--- NOTE | 2025-01-03 08:20 | CM.NOTE ---
Rounds made with Dr. Pepe, discussed with pt. No discharge today, RN will get pt to chair today.
--- NOTE | 2025-01-03 08:49 | CT_ITS ---
The [address] [address] Patient Name: TAVO WALLIS MRN: [id number] date: 1940 Sex: M Assigned Patient Location: MS Current Patient Location: [place] Accession/Order Number: [id number] Exam Date: 01/03/2025 09:30 Report Date: 01/03/2025 12:31 At the request of: SARA GUTIERREZ MD Procedure: CT foot RT wo con CT RIGHT FOOT WITHOUT CONTRAST COMPARISON: Plain films 12/31/2024 CLINICAL DATA: Left heel ulcer. Spiral axial unenhanced images were obtained through the foot. Sagittal, coronal and 3-D volume rendered reconstructions were reviewed. This CT exam was performed using one or more following dose reduction techniques: Automated exposure control, adjustment of the mA and/or kV according to patient size, or use of iterative reconstruction technique. There is osteopenia. No acute fractures or dislocation are identified. No obvious bony destruction is seen. There are scattered subchondral cystic changes. There is marginal spurring, greatest at the first metatarsal phalangeal joint where there is also joint space narrowing. There are tiny calcaneal spurs as well as soft tissue calcification at the distal Achilles tendon and proximal and mid plantar aponeurosis. There is diffuse subcutaneous edema. Patient's heel ulcer is not well demonstrated. No subcutaneous air or radiopaque foreign bodies are noted. There is no obvious soft tissue abscess. There is atherosclerotic disease. CT/CT foot RT wo con IMPRESSION: OSTEOPENIA AND MULTIFOCAL DEGENERATIVE CHANGES. NO ACUTE BONY FINDINGS OR OBVIOUS BONE DESTRUCTION TO SUGGEST OSTEOMYELITIS. IF ADDITIONAL IMAGING EVALUATION IS STILL WARRANTED, MRI IS MORE SENSITIVE. Impression dictated by: Ita Perez M.D. 01/03/2025 12:31 PM Dictation Location: [place] [address] Electronically authenticated by: [id number] Y Date: 01/03/2025 12:31
--- NOTE | 2025-01-03 08:52 | P.PN_ITS ---
Progress Note: Subjective Subjective Interval history: Patient is back to baseline state according to his daughter. He is much more awake and interactive. Able to answer question. Able to follow command. He denies any pain or discomfort. Constipated. Exam Narrative Exam Narrative: Patient is sitting in bed. Awake. Able to focus. Able to answer yes and no questions. Able to follow command. Able to lift up his arms against gravity and some resistance. Able to lift up his legs against gravity but not resistance Stage II plus ulceration on the right heel. Chest is clear, heart is irregular. Abdomen is soft. Constitutional Vital Signs, click to edit/add: Last Vital Signs Temp 97.5 F L 01/03/25 08:50 Pulse 71 01/03/25 08:50 Resp 18 01/03/25 08:50 BP 110/60 01/03/25 08:50 Pulse Ox 91 L 01/03/25 08:50 O2 Del Method Room Air 01/03/25 08:50 Progress Note: Objective Labs Labs: Short CBC 01/03/25 Range/Units 05:02 WBC 5.9 (4.0-11.0) 10^3/uL Hgb 7.8 L (14.0-18.0) g/dL Hct 24.3 L (42.0-54.0) % Plt Count 180 (150-450) 10^3/uL BMP 01/03/25 05:02 Sodium 135 L Potassium 3.3 L Chloride 102 Carbon Dioxide 22.6 BUN 24.0 H Creatinine 1.27 Glucose 87 Calcium 8.4 L Liver Function 01/03/25 Range/Units 05:02 Total Bilirubin 0.5 (0.2-1.0) mg/dL AST 17 (15-37) U/L ALT 7 L (16-63) U/L Alkaline Phosphatase 82 (46-116) U/L Albumin 2.0 L (3.4-5.0) g/dL Progress Note: A&P Assessment and Plan (1) Encephalopathy: (2) Lower obstructive uropathy: (3) Decubitus ulcer of right heel, stage 2: (4) LIS (acute kidney injury): (5) UTI (urinary tract infection): (6) Anemia: (7) Afib: Qualifiers: Atrial fibrillation type: longstanding persistent Qualified Code(s): I48.11 - Longstanding persistent atrial fibrillation Plan Altered mental status. Likely metabolic encephalopathy and less likely acute/subacute primary PATROL COMMUNITY SERVICE OFFICER insult. This has been going on at least for 3 days prior to admission. Patient was sent from the [facility] to the emergency room on 12/27 due to altered mental status for a day or 2 prior to that. Patient was sent back to the nursing facility however he continued to have altered mentation therefore he was sent back to the emergency room yesterday. I had accepted to admit him back to the hospital for CAT scan of the brain came back negative for acute intracranial process I started patient on aspirin rectally daily I requested MRI of the brain rule out acute stroke. At this time I given the altered mental status started at least 4 days prior to this admission he would not qualify for thrombolysis or thrombectomy. If MRI is positive for stroke then we will initiate stroke comprehensive evaluation including carotid, echo. Fix his metabolic derangement The possibility of PATROL COMMUNITY SERVICE OFFICER infection is low but not completely excluded 01/03: Unfortunately, patient could not have MRI due to severe kyphosis and inability to place his head into the head compartment. Significant of the noticeable improvement of mental status since admission. Likely secondary to improvement of his metabolic derangement. Patient is back to baseline state. His neck it is much more supple compared to admission. Less likely acute CVA and/or meningitis and/or encephalitis given the improvement within 24 hours. Continue aspirin. Control antibiotic Discontinued IV fluid infusion. LIS, likely caused by obstructive uropathy as well as dehydration and volume loss. Patient has significantly dry buccal mucosa. Patient had a Chou catheter at the [facility] which was not draining. 1 L of urine drained out after Chou exchange. I am hoping that his kidney function will improve. Started patient on IV fluid infusion suspecting post obstructive polyuria. Kidney function is back to baseline which is creatinine around 1.6. IV fluid has been discontinued. Kidney function is back to normal. His kidney function today is better than it has been over the last 12 months. UTI. Urine culture is growing yeast, also growing Achromobacter Continue Diflucan and meropenem pending final sensitivity report At this stage II right heel ulceration. Requested wound culture. Requested arterial study. 2nd dose of vancomycin. Requested podiatry consultation. Arterial study does not show any significant arterial disease clinically there is no evidence of acute arterial compromise such as cyanosis or change or temperature Discussed this case with the cage loader Dr. Cabrera. Could not clinically exclude the possibility of osteomyelitis. Patient could not lay flat for brain MRI. CAT scan of the foot rule out osteo. Meanwhile continue antibiotic pending wound culture report. Bilateral lower extremities edema. Rule out DVT. Ultrasound venous study is ordered. Venous study does not show any DVT. Chronic atrial fibrillation. Patient is on Cardizem but unable to take Cardizem p.o. now Started him on Cardizem CD Patient is not on anticoagulation. I reviewed his record at [facility]. Patient had a subdural hematoma in October. Anticoagulation risk and benefit discussion took place and the decision was made not to put him on anticoagulation due to recurrent falls and recent subdural hematoma. Patient was recommended to have Watchman device by cardiology. Patient and his daughter elected not to proceed at that time. Continue Cardizem Anemia. Hemoglobin is lower than baseline. Requested iron study and ferritin which came back consistent with mixed etiology. Iron deficiency and chronic disease. Requested stool Hemoccult Started patient on PPI Monitor his hemoglobin. Patient will likely require to have anemia workup to be done in the outpatient setting to be handled by PCP in collaboration with other needed outpatient providers. This may include but not limited to EGD, colonoscopy, referral to see hematology and other needed age-appropriate cancer screening. Functional impairment. Patient would need to go back to a skilled facility. [facility] would not be able to accept him back. Plan is to send him to [facility]. I had discussed this case with his daughter at the bedside on 12/31 and 01/01. I provided her information about his disease, prognosis, expectation and trajectory. Answered all of questions Urinary Catheter Management Urinary Catheter Management 2-way Urethral: Cath placed during this visit: yes Urethral indwelling: Yes Reason for continuing: prolonged immobilization Insertion date: 12/30/24
[2025-01-03] MEDS: ALLOPURINOL 300 MG TABLET PO (10:30)
[2025-01-03] MEDS: DILTIAZEM HCL 120 MG CAP.ER.24H PO (10:30)
[2025-01-03] MEDS: IRON SUCROSE COMPLEX 200 MG in 0.9 % SODIUM CHLORIDE 100 ML 220 MG IV (10:31)
[2025-01-03] MEDS: MAGNESIUM HYDROXIDE 2,400 MG/10 ML ORAL.SUSP 2400 MG PO (10:33)
[2025-01-03] MEDS: SENNOSIDES/DOCUSATE SODIUM 1 TAB TABLET 2 TAB PO (10:34)
[2025-01-03] MEDS: PANTOPRAZOLE SODIUM 40 MG TABLET.DR PO (10:34)
[2025-01-03] MEDS: FLUCONAZOLE IN NACL,ISO-OSM 200 MG/100 ML PREMIX 100 MG IV (11:25)
[2025-01-03] MEDS: POTASSIUM CHLORIDE 10 MEQ ER TABLET 30 MEQ PO (11:38)
--- NOTE | 2025-01-03 12:06 | SWNOTE1 ---
Pt is not stable for discharge today. SW faxed updated PT/OT, phsyician note, labs, vitals, med list, and nursing notes to Mitzi at [facility].
[2025-01-03] MEDS: PIPERACILLIN SODIUM/TAZOBACTAM 3.375 GM in 0.9 % SODIUM CHLORIDE 50 ML IV ×2 (12:39→20:47)
[2025-01-03] MEDS: EPOETIN ALFA-EPBX 20,000 UNIT/ML VIAL 10000 UNIT SUBQ (12:40)
[2025-01-03 16:26] LABS: Hematocrit 25.3 % (42.0-54.0); Hemoglobin 8.2 g/dL (14.0-18.0)
[2025-01-03] MEDS: ATORVASTATIN CALCIUM 40 MG TABLET PO (21:07)
[2025-01-04] VITALS (9 sets, daily range): BP systolic 107–123; BP diastolic 60–65; PULSE 56–78; TEMP 36.6–36.7; O2SAT 94–98
[2025-01-04] MEDS: HEPARIN SODIUM (PORCINE) 5,000 UNIT/ML VIAL 5000 UNIT SUBQ (05:39)
[2025-01-04] MEDS: LEVOTHYROXINE SODIUM 75 MCG TABLET 150 MCG PO (05:40)
[2025-01-04] MEDS: PIPERACILLIN SODIUM/TAZOBACTAM 3.375 GM in 0.9 % SODIUM CHLORIDE 50 ML IV (05:40)
[2025-01-04] MEDS: ACETAMINOPHEN 325 MG TABLET 650 MG PO (05:40)
[2025-01-04 05:58] LABS: Anion Gap 12.0; Blood Urea Nitrogen 20.0 mg/dL (7.0-18.0); Calcium 8.4 mg/dL (8.5-10.1); Carbon Dioxide 24.7 mmol/L (21.0-32.0); Chloride 104 mmol/L (98-107); Estimated GFR (African America >60 (>=60 mL/min/1.73m^2); Estimated GFR (Non-African Ame >60 (>=60 mL/min/1.73m^2); Glucose 76 mg/dL (74-106); Potassium 3.7 mmol/L (3.5-5.1); Sodium 137 mmol/L (136-145)
--- NOTE | 2025-01-04 08:40 | CM.NOTE ---
Rounds made with Dr. Pepe, pt will discharge today to skilled facility. Pt will discharge to [facility]. Pt will continue IV Zoysn at [facility] for additional 5 days.
[2025-01-04] MEDS: PANTOPRAZOLE SODIUM 40 MG TABLET.DR PO (09:42)
[2025-01-04] MEDS: ALLOPURINOL 300 MG TABLET PO (09:42)
[2025-01-04] MEDS: SENNOSIDES/DOCUSATE SODIUM 1 TAB TABLET 2 TAB PO (09:42)
[2025-01-04] MEDS: DILTIAZEM HCL 120 MG CAP.ER.24H PO (09:42)
[2025-01-04] MEDS: FLUCONAZOLE IN NACL,ISO-OSM 200 MG/100 ML PREMIX 100 MG IV (09:45)
--- NOTE | 2025-01-04 09:47 | SWNOTE1 ---
Pt is stable for discharge today. SW to set up discharge once orders are in. GARY did let Mady at [facility] know. GARY also let Mady know that pt will be coming on 5 days of Zosyn IV, waiting to hear back from Mady to confirm that is alright.
--- NOTE | 2025-01-04 10:01 | SWNOTE1 ---
GARY spoke to Mady at [facility] and they can accommodate IV Zosyn for 5 days. GARY did ask if they can do a peripheral line for the 5 days. Mady spoke to Meme in case management and Mady will have to ask the director school of nursing and call GARY back. Mady called SW back and they can accommodate peripheral line as well. GARY did reach out to pt's nurse, Amaya, and let her know to keep the peripheral IV in. GARY also asked the nurse about mode of transport and she recommended stretcher.
--- NOTE | 2025-01-04 10:45 | PM.DS1 ---
DS: Providers Provider Date of admission: 12/30/24 19:54 Primary care physician: Feliciano Ambrosio DO Consults: 12/30/24 19:39 Occupational Therapy Eval and Treat Routine Reason for consultation: Weakness Physical Therapy Eval and Treat Routine Reason for consultation: Weakness 12/31/24 Consult to Wound Care Routine Consulting Provider: Zeferino Cespedes Reason for consultation: rt heel wound 12/31/24 08:36 Consult to Podiatry Routine Consulting Provider: Christian Cabrera Reason for consultation: Foot ulcer 01/01/25 11:15 Clinical Bedside Swallow Eval and Treat Routine Reason for consultation: Dysphagia DS: Diagnosis Discharge Diagnosis (1) Encephalopathy: (2) Lower obstructive uropathy: (3) Decubitus ulcer of right heel, stage 2: (4) LIS (acute kidney injury): (5) UTI (urinary tract infection): (6) Anemia: (7) Afib: Qualifiers: Atrial fibrillation type: longstanding persistent Qualified Code(s): I48.11 - Longstanding persistent atrial fibrillation Plan As listed above, below and others that are not listed DS: Summary Hospital Course Hospital Course: Altered mental status. Likely metabolic encephalopathy and less likely acute/subacute primary [employer] insult. This has been going on at least for 3 days prior to admission. Patient was sent from the skilled nursing to the emergency room on 12/27 due to altered mental status for a day or 2 prior to that. Patient was sent back to the nursing facility however he continued to have altered mentation therefore he was sent back to the emergency room yesterday. I had accepted to admit him back to the hospital for CAT scan of the brain came back negative for acute intracranial process I started patient on aspirin rectally daily I requested MRI of the brain rule out acute stroke. At this time I given the altered mental status started at least 4 days prior to this admission he would not qualify for thrombolysis or thrombectomy. If MRI is positive for stroke then we will initiate stroke comprehensive evaluation including carotid, echo. Fix his metabolic derangement The possibility of [employer] infection is low but not completely excluded 01/04: Unfortunately, patient could not have MRI due to severe kyphosis and inability to place his head into the head compartment. Significant and noticeable improvement of mental status since admission. Likely secondary to improvement of his metabolic derangement. Patient is back to baseline state. His neck it is much more supple compared to admission. Less likely acute CVA and/or meningitis and/or encephalitis given the improvement within 24 hours. Continue aspirin. Control antibiotic Discontinued IV fluid infusion. LIS, likely caused by obstructive uropathy as well as dehydration and volume loss. Patient has significantly dry buccal mucosa. Patient had a Chou catheter at the skilled nursing which was not draining. 1 L of urine drained out after Chou exchange. I am hoping that his kidney function will improve. Started patient on IV fluid infusion suspecting post obstructive polyuria. Kidney function is back to baseline which is creatinine around 1.6. IV fluid has been discontinued. Kidney function is back to normal. His kidney function today is better than it has been over the last 12 months. CAUTI, UTI. Urine culture is growing yeast, also growing Achromobacter Continue Diflucan. Meropenem was changed to Zosyn to cover Achromobacter assisted will be able to infuse Zosyn for the next 5 days. Total IV antibiotic duration thus far is 5 days and that will be followed for additional 5 days of Zosyn. Total 10 days. Recommend Chou catheter exchange every 3 weeks. At this stage II right heel ulceration. Requested wound culture. Requested arterial study. 2nd dose of vancomycin. Requested podiatry consultation. Arterial study does not show any significant arterial disease clinically there is no evidence of acute arterial compromise such as cyanosis or change or temperature Discussed this case with the production stage manager Dr. Cabrera. Could not clinically exclude the possibility of osteomyelitis. Patient could not lay flat for brain MRI. CAT scan of the foot rule out osteo. CAT scan does not show osteomyelitis Meanwhile continue antibiotic pending wound culture report. Patient will follow-up with Dr. Cabrera to complete needed footcare Bilateral lower extremities edema. Rule out DVT. Ultrasound venous study is ordered. Venous study does not show any DVT. Chronic atrial fibrillation. Patient is on Cardizem but unable to take Cardizem p.o. now Started him on Cardizem CD Patient is not on anticoagulation. I reviewed his record at [facility]. Patient had a subdural hematoma in October. Anticoagulation risk and benefit discussion took place and the decision was made not to put him on anticoagulation due to recurrent falls and recent subdural hematoma. Patient was recommended to have Watchman device by cardiology. Patient and his daughter elected not to proceed at that time until further discussion with the PCP. Continue Cardizem CD1 20 mg daily Anemia. Hemoglobin is lower than baseline. Requested iron study and ferritin which came back consistent with mixed etiology. Iron deficiency and chronic disease. Requested stool Hemoccult Started patient on PPI Monitor his hemoglobin. Patient will likely require to have anemia workup to be done in the outpatient setting to be handled by PCP in collaboration with other needed outpatient providers. This may include but not limited to EGD, colonoscopy, referral to see hematology and other needed age-appropriate cancer screening. Functional impairment. Patient would need to go back to a skilled facility. [facility] would not be able to accept him back. Plan is to send him to [facility]. I had discussed this case with his daughter at the bedside on 12/31 and 01/01. I provided her information about his disease, prognosis, expectation and trajectory. Answered all of questions Patient has multiple complex medical issues as listed above and others that are not listed. All appear to be stable. I do not have any clear or strong clinical justification to extend inpatient hospitalization. Patient however will require close and frequent monitoring as well as additional work-up, investigation and therapeutic intervention that could take place from this point on post discharge. That is to prevent relapse, decompensation, rehospitalization and other medical implications.. I instructed patient to ask her primary care doctor to obtain [facility] record entirely to address abnormalities seen on labs and imaging that I have and have not addressed during this hospitalization, follow-up on pending blood work, imaging and pathology is if available and to follow-up on needed medical care in the outpatient setting. Time Spent with Patient Time attestation: Total time spent providing and/or coordinating discharge services: Time spent: greater than 30 minutes Exam Narrative Exam Narrative: Patient is sitting in bed. Awake. Able to focus. Able to answer yes and no questions. Able to follow command. Able to lift up his arms against gravity and some resistance. Able to lift up his legs against gravity but not resistance Stage II plus ulceration on the right heel. Chest is clear, heart is irregular. Abdomen is soft. Constitutional Vital Signs, click to edit/add: Last Vital Signs Temp 98.0 F 01/04/25 08:38 Pulse 74 01/04/25 09:56 Resp 18 01/04/25 08:38 BP 114/60 01/04/25 08:38 Pulse Ox 94 L 01/04/25 08:38 O2 Del Method Room Air 01/04/25 08:38 DS: Data Data Completed and Pending Labs on day of discharge: Labs from last 24 hours 01/04/25 01/03/25 05:24 16:22 Hgb 8.2 L Hct 25.3 L Sodium 137 Potassium 3.7 Chloride 104 Carbon Dioxide 24.7 Anion Gap 12.0 BUN 20.0 H Creatinine 1.12 Est GFR ( Amer) >60 Est GFR (Non-Af Amer) >60 BUN/Creatinine Ratio 17.9 Glucose 76 Calcium 8.4 L Preliminary micro results at discharge 12/30/24 16:40 Blood Culture Result 2 - Preliminary Blood - Left Forearm NO GROWTH AT 36-48 HOURS. FINAL TO FOLLOW. 12/30/24 15:54 Blood Culture Result 1 - Preliminary Blood - Right Forearm NO GROWTH AT 36-48 HOURS. FINAL TO FOLLOW. Discharge Plan Discharge Disposition: Xfer SNF Condition: Fair Discharge Medications: New acetaminophen [Tylenol] 325 mg Tablet 650 mg PO Q6H PRN (Reason: Pain or fever) Qty: 0 0RF pantoprazole 40 mg Tablet,Delayed Release (Dr/Ec) 40 mg PO DAILY Qty: 30 0RF diltiazem HCl 120 mg Capsule,Extended Release 24hr 120 mg PO QD Qty: 0 0RF heparin (porcine) 5,000 unit/mL Solution 5,000 unit subcut Q12H Qty: 0 0RF Zosyn in dextrose (iso-osm) 3.375 gram/50 mL piggyback 3.375 g IV Q8H 5 Days polyethylene glycol 3350 17 gram Powder In Packet 17 g PO QD PRN (Reason: Constipation) Qty: 0 0RF sennosides-docusate sodium 8.6-50 mg Tablet 2 tab PO QD Qty: 30 0RF fluconazole 200 mg tablet 200 mg PO DAILY 3 Days Qty: 3 0RF Continued budesonide 0.5 mg/2 mL suspension for nebulization 0.5 mg inhalation Q12H nystatin [Klayesta] 100,000 unit/gram powder 1 applic TOPICAL BID pramipexole 0.25 mg tablet 0.25 mg PO QDAY PRN (Reason: tremors) allopurinol 300 mg tablet 300 mg PO DAILY atorvastatin 40 mg tablet 40 mg PO DAILY levothyroxine 150 mcg tablet 150 mcg PO .qd magnesium oxide 400 mg (241.3 mg magnesium) tablet 400 mg PO .qd Changed ipratropium-albuterol 0.5 mg-3 mg(2.5 mg base)/3 mL solution for nebulization 3 ml INHALATION Q8H PRN (Reason: Wheezing) Qty: 0 0RF potassium chloride 20 mEq tablet,ER particles/crystals 10 meq PO DAILY Qty: 0 0RF Discontinued diltiazem HCl 30 mg tablet 30 mg PO BID doxycycline hyclate 100 mg capsule 100 mg PO Q12H baclofen 10 mg tablet 10 mg PO BID PRN (Reason: backpain) bumetanide 1 mg tablet 1 mg PO DAILY eszopiclone 3 mg tablet 3 mg PO BEDTIME Tylenol Extra Strength 500 mg powder in packet 1,000 mg PO .q8 PRN (Reason: pain) trazodone 50 mg tablet 50 mg PO DAILY PRN (Reason: insomnia) Print Language: French Activity Restrictions/Additional Instructions: I may not have addressed or treated all of your medical illnesses or the abnormal blood work or imaging studies during this hospitalization. Please ask your primary care provider to obtain [facility] records entirely to follow up on all of the abnormal physical, laboratory, and imaging findings that I have not addressed. Please return back to the emergency room or seek medical attention if your symptoms worsen or return. For skilled nursing providers Fall precautions Change Chou catheter every 3 weeks starting on Tuesday 01/09 BMP every Tuesday and CBC every Tuesday and Titrate his medication to keep him in euvolemic state and having stable blood pressure. Zosyn infusion for 5 days only Discharging you from [facility] does not mean that your medical care ends here and now. You may still need additional monitoring, work up, investigation, and treatment plan to be handled from this point on by out patient providers including your primary care provider and specialists. For any medication question, please contact your retail pharmacist or your primary care provider. Thank you. Forms: Portal Instructions Referrals: Feliciano Ambrosio DO [Primary Care Provider] Christian Cabrera DPM [Physician, Podiatry] Follow Up Appointments: Follow up with Dr. Cabrera at [facility] on 01/16/25 @ 9:30am
--- NOTE | 2025-01-04 10:49 | SWNOTE1 ---
GARY spoke to case management and pt will need f/u with Dr. Cabrera. GARY called Dr. Cabrera office and spoke to Alejandra, she checked with Dr. Cabrera and per [place], Dr. Cabrera will see pt at a follow up at wound center, he is there on Wednesdays. GARY to call Wound Center. GARY called wound center and left message for legal administrative secretary. GARY received a call back from Mora at wound center. She put patient on the schedule for TuesdayJanuary 16 at 9:30. GARY also notified Mady at [facility] of this follow up date and time and will let the pt's daughter know as well. Follow up apt will also be listed on the CRF.
--- NOTE | 2025-01-04 11:34 | SWNOTE1 ---
Pt discharge completed. GARY faxed dc med rec and therapy notes from today to Mady at [facility]. GARY called and set up stretcher transport for 12:40 pm with [facility]. GARY called the daughter, Abigail, and updated her of discharge time. She voiced she will not be over there until 6:00pm. GARY to let [facility] know. Abigail would like to know room number, SW to find out. GARY completed [facility]ENS 7000 online. AGRY let nurse and BCC know time as well. GARY did reach out to Mady at [facility] and pt is going to room 304. GARY sent a text message to the daughter, per daughter's request, with room number and address for [facility]. GARY took packet to med surge floor and provided the nurse with CRF to complete.
--- NOTE | 2025-01-04 11:45 | SWNOTE1 ---
Pt's nurse did ask SW about peripheral line and that he has been here since 12/30 and it should be changed and wants to make sure [facility] is aware that line has been in since 12/30. SW reached out to Sweetie at [facility] who is the director quality systems, waiting for her to call SW back.
--- NOTE | 2025-01-07 10:33 | PM.EN ---
Event Note Event Note: Right heel wound culture came back positive for MRSA after discharge We will call the intermediate and request to add Zyvox 600 mg twice daily for 10 days to his regimen. Patient will follow-up with Dr. Cabrera to monitor evidence of osteomyelitis and extend antibiotic treatment accordingly.
--- NOTE | 2025-01-07 11:31 | CM.NOTE ---
Final foot culture back with sensitivity. Dr. Pepe is prescribing Zyvox 600mg P.O. BID for 10days. Called [facility] and spoke with Ivy, pt's nurse. Updated her on wound culture results and that Dr. Pepe writing script for zyvox 600mg P.O and faxed script to [phone]. Asked Ivy to please call CM back if not received. Faxed also wound culture results. Pt does have f/u with Dr. Cabrera.
== END 2025-01-04 12:52 | DRG 698 ==
LOC: ER 18:45 → MS 19:58
PROVIDERS: Admitting Provider Internal Medicine; Emergency Provider Student in an Organized Health Care Education/Training Program; PCP Family Medicine; Visit Provider Internal Medicine
DX: T83.511A Infection and inflammatory reaction due to indwelling urethral catheter, initial encounter (principal); G93.41 Metabolic encephalopathy; B37.49 Other urogenital candidiasis; I48.11 Longstanding persistent atrial fibrillation; N17.9 Acute kidney failure, unspecified; I50.32 Chronic diastolic (congestive) heart failure; N39.0 Urinary tract infection, site not specified; R41.82 Altered mental status, unspecified; L89.612 Pressure ulcer of right heel, stage 2; Z87.891 Personal history of nicotine dependence; N13.9 Obstructive and reflux uropathy, unspecified; T83.098A Other mechanical complication of other urinary catheter, initial encounter; E86.0 Dehydration; R60.0 Localized edema; D50.9 Iron deficiency anemia, unspecified; D63.8 Anemia in other chronic diseases classified elsewhere; B96.89 Other specified bacterial agents as the cause of diseases classified elsewhere; I73.9 Peripheral vascular disease, unspecified; E03.9 Hypothyroidism, unspecified; Z79.890 Hormone replacement therapy; E78.00 Pure hypercholesterolemia, unspecified; Z96.649 Presence of unspecified artificial hip joint; Z96.659 Presence of unspecified artificial knee joint; G47.30 Sleep apnea, unspecified; Z66 Do not resuscitate; B95.62 Methicillin resistant Staphylococcus aureus infection as the cause of diseases classified elsewhere
CPT/HCPCS: 36415; 36430; 51702; 70450; 71045; 73060; 73090; 73620; 73700; 74176; 76376; 80048; 80053; 81001; 82607; 82728; 82746; 83540; 83550; 83605; 83735; 83880; 84443; 84484; 85014; 85018; 85025; 85027; 86850; 86900; 86901; 86923; 87040; 87070; 87075; 87086; 87088; 87106; 87186; 92610; 93005; 93306; 93925; 93970; 96361; 96365; 96367; 97110; 97162; 97165; 97530; 97535; 99285; G0328; J0650; J0696; J0743; J1644; J1756; J2543; J3373; P9016; Q5106

== ENCOUNTER 2025-01-16 14:24 | Outpatient (OUT) | payer MEDICARE, BC, SELFPAY ==
--- OUTSIDE RECORDS SUMMARY | 2023-08-02 05:45 | XMS_ITS ---
Author Organization [facility] Address [address] [place] [address] [place] [address] Care Team Providers Care Rn Labor And Delivery Name Role Phone Pawel Echavarria Unavailable [phone] Mendy Bull Unavailable Unavailable Allergies Allergen (clinical drug ingredient) Drug/Non Drug Allergy documented on EMR Reaction Allergy Type Onset Date Status zolpidem Ambien Unknown Drug Allergy ActiveDuragesic-100UnknownDrug AllergyActivefentanylFentanylUnknownDrug Allergy ActiveindomethacinIndocinUnknownDrug AllergyActivepenicillaminePenicillamine anaphylaxisDrug AllergyActive REASON FOR VISIT rfc Medications Medication SIG (Take, Route, Frequency, Duration) Notes Start Date End Date Status Magnesium 400 MG as directed Orally ActiveSenna 30 MGas directed OrallyActivePotassiminActiveAcetaminophen 500 MG2 capsule as needed Orally BID prnActiveAllopurinol 300 MG1 tablet Orally Once a day; Duration: 30 day(s)ActiveLipitor 40 MG1 tablet Orally Once a day; Duration: 30 day(s)ActivetraZODone HCl 50 MG1 tablet at bedtime as needed Orally Once a day; Duration: 30 day(s)ActiveLunesta 3 MG1 tablet immediately before bedtime Orally Once a dayActiveSynthroid 150 MCG1 tablet in the morning on an empty stomach Orally Once a day; Duration: 30 day(s)ActiveSpironolactone 25 MG1 tablet Orally; Duration: 30 day(s)ActiveoxyBUTYnin Chloride ER 5 MG1 tablet Orally Once a day; Duration: 30 day(s)ActiveEliquis 2.5 MGas directed OrallyActivetraMADol HCl 50 MG1 tablet as needed Orally Q 6 hrs prnActive Social History Tobacco Use: Social History Observation Description Date Details (start date - stop date) Never Smoker NA - NA tobacco use Question Answer Notes Patient is a: non smoker Vital Signs Height 64 in 08/02/2023 Encounters Encounter Location Date Provider Diagnosis [facility] [address] [place] [address] 08/02/2023 Paewl Echavarria Plan Of Treatment No Information Progress Notes * KADI Irineo Byrd JrDOB:01/1941 (84 yo M)Acc No.[id number]:08/02/2023 Patient:?KADI Irineo Carson Murray :?Pawel Curtisdanodavid DPMDOB:1940???Age:83 Y???Sex: MaleDate:08/02/2023hone:Address:[place] [address] Subjective: * Chief Complaints: * 1 . Rfc. * Medical History: H ypertension, Hyperlidemia, Atrial fibrillation, Overactive bladder, Lumbar spondylosis, Heart murmur, Stomach ulcers, Poor circulation, Thyroid disease, Skin conditions. * Family History: mother heart attack. * Social History: T obacco use P atient is a: n on smoker. * Medications: T aking oxyBUTYnin Chloride ER 5 MG Tablet Extended Release 24 Hour 1 tablet Orally Once a day , Taking traMADol HCl 50 MG Tablet 1 tablet as needed Orally Q 6 hrs prn , Taking Eliquis 2.5 MG Tablet as directed Orally , Taking Lipitor 40 MG Tablet 1 tablet Orally Once a day , Taking Spironolactone 25 MG Tablet 1 tablet Orally , Taking Synthroid 150 MCG Tablet 1 tablet in the morning on an empty stomach Orally Once a day , Taking Lunesta 3 MG Tablet 1 tablet immediately before bedtime Orally Once a day , Taking traZODone HCl 50 MG Tablet 1 tablet at bedtime as needed Orally Once a day , Taking Allopurinol 300 MG Tablet 1 tablet Orally Once a day , Taking Acetaminophen 500 MG Capsule 2 capsule as needed Orally BID prn , Taking Senna 30 MG Miscellaneous as directed Orally , Taking Magnesium 400 MG Tablet as directed Orally , Taking Potassimin * Allergies: F entanyl, Penicillamine: anaphylaxis, Duragesic-100, Indocin, Ambien. Objective: * Vitals: H t: 64 in. Assessment: Plan: * Treatment: * Images: * Electronic signature of Pawel Echavarria DPM on 01/16/2025 at 02:27 PM ESTSign off status: Pending * Provider: Danae Echavarria DPM Date: 0 08/02/2023 Generated for Printing/Faxing/eTransmitting on:?01/16/2025 02:27 PM EST
--- OUTSIDE RECORDS SUMMARY | 2024-03-26 04:45 | XMS_ITS ---
Author Organization [facility] Address [address] [place] [address] [place] [address] Care Team Providers [employer] Foreperson Name Role Phone Pawel Echavarria Unavailable [phone] Mendy Bull Unavailable Unavailable Allergies Allergen (clinical drug ingredient) Drug/Non Drug Allergy documented on EMR Reaction Allergy Type Onset Date Status zolpidem Ambien Unknown Drug Allergy ActiveDuragesic-100UnknownDrug AllergyActivefentanylFentanylUnknownDrug Allergy ActiveindomethacinIndocinUnknownDrug AllergyActivepenicillaminePenicillamine anaphylaxisDrug AllergyActive REASON FOR VISIT rfc Medications Medication SIG (Take, Route, Frequency, Duration) Notes Start Date End Date Status Magnesium 400 MG as directed Orally ActiveAcetaminophen 500 MG2 capsule as needed Orally BID prnActiveBumetanide 1 MG1 tablet Orally Once a dayActivePotassium Chloride ER 20 MEQ1 tablet with food Orally Once a dayActiveEszopiclone 3 MG1 tablet immediately before bedtime Orally Once a dayActivetraZODone HCl 50 MG1 tablet at bedtime as needed Orally Once a day; Duration: 30 day(s)ActiveEliquis 5 MGas directed OrallyActiveLipitor 40 MG1 tablet Orally Once a day; Duration: 30 day(s)ActiveSpironolactone 25 MG1 tablet Orally; Duration: 30 day(s)ActiveSynthroid 150 MCG1 tablet in the morning on an empty stomach Orally Once a day; Duration: 30 day(s)Active Social History Tobacco Use: Social History Observation Description Date Details (start date - stop date) Never Smoker NA - NA tobacco use Question Answer Notes Patient is a: non smoker Vital Signs Height 64 in 03/26/2024 Encounters Encounter Location Date Provider Diagnosis [facility] [address] [place] [address] 03/26/2024 Pawel Echavarria Plan Of Treatment No Information Progress Notes * PADDYIrineo BARRIOS DOB:01/1941 (84 yo M)Acc No.[id number]:03/26/2024 Patient:?PADDYIrineo BARRIOS :?NINI JimenezMDOB:1940???Age:83 Y???Sex: MaleDate:03/26/2024Phone:Address:[facility] Subjective: * Chief Complaints: * 1 . Rfc. * Medical History: H ypertension, Hyperlidemia, Atrial fibrillation, Overactive bladder, Lumbar spondylosis, Heart murmur, Stomach ulcers, Poor circulation, Thyroid disease, Skin conditions. * Family History: mother heart attack. * Social History: T obacco use P atient is a: n on smoker. * Medications: T aking Bumetanide 1 MG Tablet 1 tablet Orally Once a day , Taking Potassium Chloride ER 20 MEQ Tablet Extended Release 1 tablet with food Orally Once a day , Taking Eszopiclone 3 MG Tablet 1 tablet immediately before bedtime Orally Once a day , Taking Eliquis 5 MG Tablet as directed Orally , Taking Lipitor 40 MG Tablet 1 tablet Orally Once a day , Taking Spironolactone 25 MG Tablet 1 tablet Orally , Taking Synthroid 150 MCG Tablet 1 tablet in the morning on an empty stomach Orally Once a day , Taking traZODone HCl 50 MG Tablet 1 tablet at bedtime as needed Orally Once a day , Taking Acetaminophen 500 MG Capsule 2 capsule as needed Orally BID prn , Taking Magnesium 400 MG Tablet as directed Orally * Allergies: F entanyl, Penicillamine: anaphylaxis, Duragesic-100, Indocin, Ambien. Objective: * Vitals: H t: 64 in. Assessment: Plan: * Treatment: * Images: * Electronic signature of Pawel Echavarria DPM on 01/16/2025 at 02:29 PM ESTSign off status: Pending * Provider: Danae Echavarria DPM Date: 0 03/26/2024 Generated for Printing/Faxing/eTransmitting on:?01/16/2025 02:29 PM EST
--- OUTSIDE RECORDS SUMMARY | 2024-04-13 04:20 | XMS_ITS ---
Author Organization [facility] Address [address] [place] [address] Care Team Providers Care Boring Machine Set Up Operator Name Role Phone Randi Burris Unavailable [phone] SIXTO SIMMONS CNP Unavailable Unavailable REASON FOR VISIT L2-5 DECOMPRESSION AND NON INSTRUMENTED FUSION, [facility] , 02/20 Encounters Encounter Location Date Provider Diagnosis [facility] [facility] [address] [place] [address] [place] [address] 04/13/2024 Randi Burris Plan Of Treatment No Information Progress Notes * TAVO WALLIS JR RDOB:01/1941 (84 yo M)Acc No.[id number]:04/13/2024 Progress Notes Patient: Sharifa BRAVO TAVO [place] :?Randi Man MD, PhDDOB:1940 ???Age:83 Y???Sex:MaleDate:04/13/2024Phone:[phone]:[address] [place], [id number] Subjective: * Chief Complaints: * 1 . L2-5 DECOMPRESSION AND NON INSTRUMENTED FUSION, [facility] , 02/20. * Medical History: * Surgical History: R otator cuff surgery , L2-5 laminectomy, PSF 02/21/2024. Objective: * Vitals: Assessment: Plan: * Treatment: Forms: * Images: * Electronic signature of Randi Burris MD, PHD on 01/16/2025 at 02:27 PM EST Sign off status: Pending * Provider: Myranda Man MD, PhD Date: 0 04/13/2024 Generated for Printing/Faxing/eTransmitting on:?01/16/2025 02:27 PM EST
--- OUTSIDE RECORDS SUMMARY | 2024-05-25 05:30 | XMS_ITS ---
Author Organization [facility] Address [address] [place] [address] Care Team Providers Care Purchasing Internship Name Role Phone Randi Burris Unavailable [phone] SIXTO SIMMONS CNP Unavailable Unavailable REASON FOR VISIT S.P I & D, 04/13/24 Encounters Encounter Location Date Provider Diagnosis [facility] [facility] [address] [place] [address] [place] [address] 05/25/2024 Randi Burris Plan Of Treatment No Information Progress Notes * TAVO WALLIS JR RDOB:01/1941 (84 yo M)Acc No.[id number]:05/25/2024 Progress Notes Patient: Sharifa BRAVO TAVO MCFARLAND :?Randi Man MD, PhDDOB:1940 ???Age:83 Y???Sex:MaleDate:05/25/2024Phone:[phone]:[address] [id number] Subjective: * Chief Complaints: * 1 . S.P I & D, 04/13/24. * Medical History: * Surgical History: R otator cuff surgery , L2-5 laminectomy, PSF 02/21/2024, Lumbar wound I & D 04/17/2024. Objective: * Vitals: Assessment: Plan: * Treatment: Forms: * Images: * Electronic signature of Randi Burris MD, PHD on 01/16/2025 at 02:28 PM EST Sign off status: Pending * Provider: Myranda Man MD, PhD Date: 0 05/25/2024 Generated for Printing/Faxing/eTransmitting on:?01/16/2025 02:28 PM EST
--- OUTSIDE RECORDS SUMMARY | 2024-06-08 05:10 | XMS_ITS ---
Author Organization [facility] Address [address] [place] [address] Care Team Providers Care Full Stack Web Developer Name Role Phone Randi Burris Unavailable [phone] SIXTO SIMMONS CNP Unavailable Unavailable REASON FOR VISIT lumbar recheck Medications Medication SIG (Take, Route, Frequency, Duration) Notes Start Date End Date Status magnesium oxide ActivepramipexoleActivetraZODoneActivepotassium chlorideActiveOxycodoneActive Flexeril 10 mg1 tab(s) orally 3 times a day prn muscle /16/2024Active Flexeril 10 mg1 tab(s) orally 3 times a day5ActiveatorvastatinActive EliquisActiveallopurinolActivelevothyroxineActiveeszopicloneActivebumetanide Active Encounters Encounter Location Date Provider Diagnosis [facility] Office [address] [place] [address] [place] [address] 06/08/2024 aRndi Burris Plan Of Treatment Pending Test Test Name Order Date Lumbar spine 2v ap and lat - 55390 06/08 Progress Notes * TAVO WALLIS JR RDOB:01/1941 (84 yo M)Acc No.[id number]:06/08/2024 Patient:?TAVO WALLIS JR :?Randi Man MD, PhDDOB:1940 ???Age:83 Y???Sex:MaleDate:06/08/2024Phone:[phone]:[address] [id number] Subjective: * Chief Complaints: * 1 . [...] Lumbar spine 2v ap and lat - 31205 Forms: * Images: * Electronic signature of Randi Burris MD, PHD on 01/16/2025 at 02:29 PM EST Sign off status: Pending * Provider: Myranda Man MD, PhD Date: 0 06/08/2024 Generated for Printing/Faxing/eTransmitting on:?01/16/2025 02:29 PM EST
--- OUTSIDE RECORDS SUMMARY | 2024-07-20 05:00 | XMS_ITS ---
Author Organization [facility] Address [address] [place] [address] Care Team Providers Care Razor Sharpener Name Role Phone Randi Burris Unavailable [phone] SIXTO SIMMONS CNP Unavailable Unavailable REASON FOR VISIT LUMBAR RECHECK Medications Medication SIG (Take, Route, Frequency, Duration) Notes Start Date End Date Status Flexeril 10 mg 1 tab(s) orally 3 times a day pr n muscle spasms 4ActiveFlexeril 10 mg1 tab(s) orally 3 times a day5Active atorvastatinActiveallopurinolActiveEliquisActivemagnesium oxideActiveOxycodone ActiveeszopicloneActivelevothyroxineActivebumetanideActivetraZODoneActive pramipexoleActivepotassium chlorideActive Encounters Encounter Location Date Provider Diagnosis [facility] Office [address] [place] [address] [place] [address] 07/20/2024 Randi Burris Plan Of Treatment No Information Progress Notes * TAVO WALLIS JR RDOB:01/1941 (84 yo M)Acc No.[id number]:07/20/2024 Patient:?TAVO WALLIS JR :?Randi Man MD, PhDDOB:1940 ???Age:84 Y???Sex:MaleDate:07/20/2024Phone:[phone]:[address], [id number] Subjective: * Chief Complaints: * 1 . [...] PhD Date: 0 07/20/2024 Generated for Printing/Faxing/eTransmitting on:?01/16/2025 02:29 PM EST
--- OUTSIDE RECORDS SUMMARY | 2024-08-10 05:20 | XMS_ITS ---
Author Organization [facility] Address [address] [place] [address] Care Team Providers Care Commander Internal Affairs Name Role Phone Randi Burris Unavailable [phone] SIXTO SIMMONS CNP Unavailable Unavailable REASON FOR VISIT LUMBAR RECHECK Encounters Encounter Location Date Provider Diagnosis [facility] Office [address] [place] [address] [place] [address] 08/10/2024 Randi Burris Plan Of Treatment No Information Progress Notes * TAVO WALLIS JR RDOB:01/1941 (84 yo M)Acc No.[id number]:08/10/2024 Patient:?TAVO WALLIS JR :?Randi Man MD, PhDDOB:1940 ???Age:84 Y???Sex:MaleDate:08/10/2024Phone:[phone]:[address] [id number] Subjective: * Chief Complaints: * 1 . LUMBAR RECHECK. * Medical History: Objective: * Vitals: Assessment: Plan: * Treatment: Forms: * Images: * Electronic signature of Randi Burris MD, PHD on 01/16/2025 at 02:26 PM EST Sign off status: Pending * Provider: Myranda Man MD, PhD Date: 0 08/10/2024 Generated for Printing/Faxing/eTransmitting on:?01/16/2025 02:26 PM EST
--- OUTSIDE RECORDS SUMMARY | 2024-08-31 05:40 | XMS_ITS ---
Author Organization [facility] Address [address] [place] [address] Care Team Providers Care Conventional Mortgage Underwriter Name Role Phone Randi Burris Unavailable [phone] SIXTO SIMMONS CNP Unavailable Unavailable REASON FOR VISIT LUMBAR RECHECK Medications Medication SIG (Take, Route, Frequency, Duration) Notes Start Date End Date Status atorvastatin ActiveallopurinolActiveEliquisActiveFlexeril 10 mg1 tab(s) orally 3 times a day 5ActiveFlexeril 10 mg1 tab(s) orally 3 times a day prn muscle spasms 4ActiveOxycodoneActivelevothyroxineActivemagnesium oxideActive bumetanideActiveeszopicloneActivepotassium chlorideActivetraZODoneActive pramipexoleActive Encounters Encounter Location Date Provider Diagnosis [facility] [address] [place] [id number] 08/31/2024 Randi Burris Plan Of Treatment Pending Test Test Name Order Date Lumbar spine 2v ap and lat - 62161 08/31 Progress Notes * ATVO WALLIS JR RDOB:01/1941 (84 yo M)Acc No.[id number]:08/31/2024 Patient:?TAVO WALLIS JR :?Randi Man MD, PhDDOB:1940 ???Age:84 Y???Sex:MaleDate:08/31/2024Phone:[phone]:[address] [place] [id number] Subjective: * Chief Complaints: * 1 . [...] Lumbar spine 2v ap and lat - 32540 * Procedure Codes: 7 2100 X-ray Lumbar Spine, 2 view Forms: * Images: * Electronic signature of Randi Burris MD, PHD on 01/16/2025 at 02:28 PM EST Sign off status: Pending * Provider: Myranda Man MD, PhD Date: 0 08/31/2024 Generated for Printing/Faxing/eTransmitting on:?01/16/2025 02:28 PM EST
--- OUTSIDE RECORDS SUMMARY | 2025-01-16 14:27 | XMS_ITS | Patient Health Record ---
Author Organization [facility] Address [facility] [place] [address] Care Team Providers Care Emergency Vehicle Driver Name Role Phone Pawel Echavarria Unavailable [phone] Mendy Bull Unavailable Unavailable Allergies Allergen (clinical [...] rosis of arteries of lower limbs (disorder) ([id number]) Unspecified atherosclerosis of [place] arteries of extremities, bilateral legs (I70.203) ActiveconfirmedProblemAcquired hammer toe of right foot ([id number])Other hammer toe(s) (acquired), right foot (M20.41)ActiveconfirmedProblemAcquired hammer toe of left foot ([id number])Other hammer toe(s) (acquired), left foot (M20.42)Activeconfirmed Plan Of Treatment No Information Insurance Providers Payer Name Payer Address Payer Phone Subscriber Number Group Number Insured Name Patient Relationship to Insured Coverage Start Date Coverage End Date Medicare Part B [id number] Part [facility] Claims [address] [place] [address] [id number], WilliamSelf - [facility] the [facility] [address] [place], [place] [id number], WilliamSelf - patient is the insured Medical (General) History Medical History History ICD Code hypertension hyperlidemiaatrial fibrillationoveractive bladderlumbar spondylosisheart murmur stomach ulcerspoor circulationthyroid diseaseskin conditionsSurgical History Surgery Date(Month/Year)
--- OUTSIDE RECORDS SUMMARY | 2025-01-16 14:27 | XMS_ITS | Continuity of Care Document ---
Author Organization [facility] Address [address] [place] [address] Care Team Providers Care Shank Cutter Name Role Phone Mendy Bull MD Attending Physician Medications Medication Frequency Instructions Diagnosis Start Date End Date Status Last Administered acetaminophen 325 mg tablet Every 6 Hours - PRN 2 tabs, oral, Every 6 Hours - PRN, pain 01/04/20257927Dxenbr47/01/2025 06:10 PMallopurinol 300 mg tabletOnce A Day1 tablet, oral, Once A DayM10.9 : Gout, laxrofetaeu55/31/7412Oakljw10/01/2025 08:57 AM atorvastatin 40 mg tabletAt Bedtime1 tablet, oral, At ZsghzokU81.00 : Pure hypercholesterolemia, wvngfjqkdju03/31/7084Wmzndk00/01/2025 10:01 PMbudesonide 0.5 mg/2 mL suspension for nebulizationTwice A Day2 ml, inhalation, Twice A Day R06.02 : Shortness of qwnlft0501/04/20254573Zmhofb25/01/2025 06:10 PMdiltiazem HCl 120 mg tabletOnce A Day1 tab, oral, Once A DayI73.9 : Peripheral vascular disease, bphfbovrwfq42/31/9743Czlgcg32/01/2025 08:57 AMfluconazole 200 mg tabletOnce A Day1 tab, oral, Once A DayB37.2 : Candidiasis of skin and nail01/04/202501/05/2025 10:01 PMheparin (porcine) 5,000 unit/mL solutionTwice A Day5,000 units, injection, Twice A DayI48.11 : Longstanding persistent atrial cgmrxufkicsn57/31/6199Tvwazn31/01/2025 10:01 PMipratropium-albuterol 0.5 mg-3 mg(2.5 mg base)/3 mL solution for nebulizationEvery 8 Hours - PRN3 ml, inhalation, Every 8 Hours - PRN, pgimreskF12.02 : Shortness of pwrwmj4001/04/2025 Activelevothyroxine 150 mcg tabletOnce A Day1 tablet, oral, Once A DayE03.9 : Hypothyroidism, eeyaoafbwtw36/31/7326Vjvdak78/01/2025 05:25 AMMagOx (magnesium oxide) 400 mg (241.3 mg magnesium) tabletOnce A Day1 tablet, oral, Once A Day M10.9 : Gout, qqewphzthhg33/31/2874Gdcidq32/01/2025 08:57 AMMiralax (polyethylene glycol 3350) 17 gram/dose powderOnce A Day - AAY47gk, oral, Once A Day - PRN, constipation 01/04/2025tiveNormal Saline Flush (sodium chloride 0.9 % (flush)) - syringe Flush before and after IV orkjypzwhv21pS, injection, Flush before and after IV medication, flush with 10 mL NS prior to medication administration and 10mL NS after medication is complete 01/04/20254253Mniwrb97/02/2025 12:19 AMNormal Saline Flush (sodium chloride 0.9 % (flush)) - syringeEvery 8 Afnhc04qT, injection, Every 8 Hours, NORMAL SALINE FLUSH FLUSH BEFORE AND AFTER MEDS-PERIPHERAL IV Before and after each medication 01/04/20259325Vnlare29/01/2025 10:01 PMnystatin 100,000 unit/gram powderTwice A Day1 application, topical, Twice A Day, apply to abdominal folds and groin twice daily 01/04/20258094Qwenkp76/01/2025 03:13 PMpantoprazole 40 mg tablet,delayed release (DR/EC)Once A Day1 tab, oral, Once A DayK27.7 : Chronic peptic ulcer, site unspecified, without hemorrhage or migbyjifgho71/31/7094Yxrkyx65/01/2025 04:09 AMpotassium chloride 10 mEq tablet,ER particles/crystalsOnce A Day1 tablet, oral, Once A DayE87.6 : Foavtelmdmm69/31/2048Elfgzh36/01/2025 08:57 AM pramipexole 0.25 mg tabletOnce A Day - PRN1 tablet, oral, Once A Day - PRN, give once daily for tremors prn 01/04/2025tivesennosides-docusate sodium 8.6-50 mg tabletOnce A Day2 tab, oral, Once A Day, constipation 01/04/20259851Erdtwd55/01/2025 10:01 PMZosyn in dextrose (iso-osm) (svxpwzrnjzme-krggtejnvr-ncuntj) 3.375 gram/50 mL piggybackThree Times A Day 3.375 gram, intravenous, Three Times A DayL03.115 : Cellulitis of right lower limb/2695Aqwaqu11/01/2025 11:37 PMnystatin 100,000 unit/gram powderTwice A Day1 application, topical, Twice A Day, apply to affected areas twice daily Not Cfwcye5901/04/2025 04:44 PMZosyn in dextrose (iso-osm) (fjuryjavilwx-zjzvjdacwx-rdxgwm) 3.375 gram/50 mL piggybackThree Times A Day 3.375 gram, intravenous, Three Times A DayL03.115 : Cellulitis of right lower limbNot Active Problems Code Type Problem ICD Code Effective Date Status ICD-10 Encephalopathy, unspecified G93.40 01/03/20 25 Active ICD-10 Obstructive and reflux uropathy, unspecified N1 3.9 01/02/2025 Active ICD-10 Benign prostatic hyp erplasia with lower urinary tract symptoms N40.1 01/02/2025 Active ICD-10 Acute kidney failure, unspecified N17.9 Active ICD-10 Cellulitis of right lower limb L03.115 01/02 Active ICD-10 Urinary tract infection, site not specified N39 .0 01/02/2025 Active ICD-10 Pressure ulcer of right heel, stage 2 L89.612 01/02/2025 Active ICD-10 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 Active ICD-10 Anemia, unspecified D64.9 01/02/2025 Activ e ICD-10 Pure hypercholesterolemia, unspecified E78.00 01/02/2025 Active ICD-10 Insomnia, unspecified G47.00 01/02/2025 Act rocío ICD-10 Sleep apnea, unspecified G47.30 01/02/2025 Active ICD-10 Hypothyroidism, unspecified E03.9 01/03/20 Active ICD-10 Tinnitus, unspecified ear H93.19 01/02/2025 Active ICD-10 Unspecified cataract H26.9 01/02/2025 Acti ve ICD-10 Longstanding persistent atrial fibrillation I48 .11 01/02/2025 Active ICD-10 Cardiomyopathy, unspecified I42.9 01/03/20 Active ICD-10 Peripheral vascular disease, unspecified I73.9 01/02/2025 Active ICD-10 Pleural effusion, 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 J90 01/02/2025 Active ICD-10 Diverticulum of esophagus, acquired K22.5 01/02/2025 Active ICD-10 Gastric ulcer, unspe cified as acute or chronic, without hemorrhage or perforation K25.9 01/02/2025 Active ICD-10 Acute on chronic екатерина stolic (congestive) heart failure I50.33 01/02/2025 Active ICD-10 Gout, unspecified M10.9 01/02/2025 Active ICD-10 Low back pain, unspecified M54.50 Active ICD-10 Unspecified osteoarthritis, unspecified site M1 9.90 01/02/2025 Active ICD-10 Synovial cyst of pop liteal space [[place]], unspecified knee M71.20 01/02/2025 Active ICD-10 Chronic kidney disease, unspecified N18.9 01/02/2025 Active ICD-10 Altered mental status, unspecified R41.82 1 Active ICD-10 Presence of unspecified artificial hip joint Z9 6.649 01/02/2025 Active ICD-10 Rheumatoid arthritis with rheumatoid factor of multiple sites without organ or systems involvement M05.79 01/04/2025 Active ICD-10 Other specified postprocedural states Z98.890 01/02/2025 Active ICD-10 Chronic peptic ulcer , site unspecified, without hemorrhage or perforation K27.7 01/04/2025 Active ICD-10 Foot drop, left foot M21.372 01/04/2025 Acti ve ICD-10 Spinal stenosis, lum bar region with neurogenic claudication M48.062 01/04/2025 Active ICD-10 Other intervertebral disc degeneration, lumbar region with discogenic back pain and lower extremity pain M51.362 01/04/2025 Active ICD-10 Age-related osteopor osis without current pathological fracture M81.0 01/04/2025 Active ICD-10 Unspecified kyphosis, site unspecified M40.209 01/02/2025 Active ICD-10 Retention of urine, unspecified R33.9 12/06 Active ICD-10 Personal history of other diseases of the circulatory system Z86.79 01/04/2025 Active ICD-10 Wedge compression fr acture of first lumbar vertebra, subsequent encounter for fracture with routine healing S32.010D 11/06/2024 Active ICD-10 Muscle weakness (generalized) M62.81 2024 Active ICD-10 Candidiasis of skin and nail B37.2 025 Active ICD-10 Shortness of breath R06.02 01/04/2025 Activ e ICD-10 Hypokalemia E87.6 01/04/2025 Active ICD-10 Nutritional deficiency, unspecified E63.9 01/04/2025 Active Current Allergies and Intolerances Category Substance Type Reaction Severity Begin Date Status Drug allergy Ambien Allergy 01/04/2025tiveDrug allergyfentanylAllergy 01/04/2025tiveDrug allergyIndocinAllergy 01/04/2025tiveDrug allergyPenicillins (PCN)Allergy 01/04/2025tive Vital Signs Height: 67.0 in Date / Time Temperature Pulse (per minute) Respirations (per minute) Systolic BP (mmHg) Diastolic BP (mmHg) O2 Saturation (%) Weight BMI 01/05/2025 10:05 PM 97.9 F 74 18 138 78 97.0 01/05/2025 10:27 AM98.9 [id number] 01/05/2025 08:57 AM98.1 [id number] 01/04/2025 04:37 PM98.3 [id number] 01/04/2025 03:43 PM97.9 [id number] Advance Directives Directive Note Do Not Resuscitate (DNRCCA) Insurance Providers Payer Policy type Group Name Group number Policy ID Address Ph one Medicare A Medicare Part A [id number]: Fax:Medicare BMedicare Part B [id number]: Fax:Vaccinations - MedicareLike Medicare Part B [id number] [place] [address] Fax:Medicare A Co Insurance [place] [id number] [place] [address] Phone: Fax:Medicare B Co Insurance - [place] [id number] [place] [address] Phone: Fax:Private PayPrivate Phone: Fax: Immunizations No Immunizations are on file for this resident Procedures Not available for this record Results Name Date Time Positive/Negative Value Unit Range TB test 01/04/2025 18:46 Unknown mm Goals No Goals are on file for this resident Encounters Admission Date Discharge Date Description MRN Visit Count 01/04/2025 13:20 LTPAC [id number]
--- OUTSIDE RECORDS SUMMARY | 2025-01-16 14:27 | XMS_ITS | Clinical Summary ---
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 Name Role Phone Unavailable Primary Care Provider Unavailabl e Allergies Active AllergyReactionsCriticalityNoted DateCommentsPenicillinsMental Status Chuuuu3304/07/2004 Medications MedicationSigDispense QuantityRefillsLast FilledStart DateEnd DateStatus SYNTHROID 150 MCG TABLET Take one(1) tablet daily.Active ALLOPURINOL 300 MG TABLET Take one(1) tablet daily.Active HYTRIN 2 MG CAPSULE Take one(1) capsule daily.Active BUMEX 2 MG TABLET Take one(1) tablet daily.Active CELEBREX 200 MG CAPSULE Take one(1) capsule daily.Active LEXAPRO 5 MG TABLET take one half nzish279Active VICODIN 5/500 TABLET as unnlxl974Active K-DUR 20 MEQ TABLET SA Take one(1) tablet daily.Active Active Problems No known active problems Family History Medical HistoryRelationCommentsAlzheimer's DiseaseMotherCoronary Artery Disease MotherHad CABG when she was olderThyroidSisterHypothyroidismobesitySister RelationStatusCommentsMotherSister Social History Tobacco UseTypesPacks/DayYears UsedDateSmoking Tobacco: ZaultnYoytsaptnp346 04/07/1964 - 04/07/1994 Comments:Started in High janey o[place] Alcohol UseStandard Drinks/WeekCommentsYes0 (1 standard drink = 0.6 oz pure alcohol)A few beers every daySex and Gender InformationValueDate RecordedSex Assigned at BirthNot on fileLegal IfxHrdh22/02/2012 10:06 AM ESTGender Identity Not on fileSexual OrientationNot on fileOccupationIndustryJob Start DateJob End DateNot on fileNot on fileNot on fileNot on file Last Filed Vital Signs Vital SignReadingTime TakenCommentsBlood Ftdtbzze706/85006/28/2024 10:50 AM EDT Rjwic3739 10:50 AM CWCGybkuccwkbw17.9 ??C (98.5 ??F)06/28/2024 10:50 AM EDTRespiratory Imcz640106/28/2024 10:50 AM EDTOxygen Qfgdjmfany53%06/28/2024 10:50 AM EDTInhaled Oxygen Concentration--Gfcstg917.2 kg (276 lb)04/07/2004 3:44 PM ESTHeight--Body Mass Index-- Plan of Treatment Health MaintenanceDue DateLast DoneCommentsAnxiety Nbakhuemc81/11/1960Depression Cxoraxnyp06/11/1960DTaP,Tdap,Td Vaccine (1 - Tdap)1Diabetes Screening 1986Pneumococcal Vaccine: 50+ (1 of 1 - PCV)07/16/1991Shingrix Vaccine (1 of 2)07/16/1991RSV Vaccine (1 - 1-dose 75+ series)2016Advance Directive Wxdqpatwqg72/01/2025ovid-19 Vaccine (1 - 2024- season)2024Influenza Vaccine (#1)2024 Insurance
--- OUTSIDE RECORDS SUMMARY | 2025-01-16 14:28 | XMS_ITS | Clinical Summary ---
Author Organization [facility] Address [address] [place] [address] Care Team Providers Care Cad Engineer Name Role Phone Unavailable Primary Care Provider Unavailabl e Social History Tobacco UseTypesPacks/DayYears UsedDateSmoking Tobacco: Never AssessedSex and Gender InformationValueDate RecordedSex Assigned at BirthNot on fileLegal Sex Male05/19/2022 6:54 PM EDTGender IdentityNot on fileSexual OrientationNot on file Plan of Treatment Not on file Insurance
--- OUTSIDE RECORDS SUMMARY | 2025-01-16 14:28 | XMS_ITS | Continuity of Care Document ---
Author Organization [facility] Address [address] [place], [place] [address] Insurance Providers Payer Plan Claims Address Claims Phone Policy Number Group Number Relation Employer Guarantor Name Guarantor Guarantor Address Guarantor Phone [facility] [address], [place], [place] [id number] Linda Slaterborisroel, Kellie [place], [place] [address] [address], [place], [place] [address]hri:[phone] [id number] Jadynroel, Nelli [place], [place] [address] [address] [address], [place], [place] [id number] Irineo Randell, [place] [address] Problems Condition ICD9 code ICD10 code SNOMED code Start Date End Date S tatus Encephalopathy, unspecified G93.4015ActiveObstructive and reflux uropathy, qztlwjwtydqU41.9 5ActiveBenign prostatic hyperplasia with lower urinary tract symptoms N40.1105ActiveAcute kidney failure, kaulyfsinkoI17.915Active Cellulitis of right lower limbL03.338475ActiveUrinary tract infection, site not bjsinlvbhX17.0105ActivePressure ulcer of right heel, stage 2 L89.906705ActiveBenign neoplasm of spinal exxzyhjsY71.1105Active Anemia, tffookfshhpS42.910/29/2025ActivePure hypercholesterolemia, unspecified E78.0010tiveInsomnia, aizoqbdgmqvM52.001tiveSleep apnea, lsacbjdhookC55.3010tiveHypothyroidism, jjqjkeatyhoM69.91 ActiveTinnitus, unspecified earH93.191tiveUnspecified knnrfxndB29.9 10tiveLongstanding persistent atrial efhkhyxvtuijI06.1110 ActiveCardiomyopathy, ngwxsanumilR99.91tivePeripheral vascular disease, mbwjcrfhiicB45.91tivePleural effusion, not elsewhere yixmcnrsywI0975tiveDiverticulum of esophagus, jjlyhcxvH98.510 ActiveGastric ulcer, unspecified as acute or chronic, without hemorrhage or tqbimzxrykwY80.91tiveAcute on chronic diastolic (congestive) heart gzeghhkQ18.3310tiveGout, pazpsprroiqP66.91tiveLow back pain, hjjkomeooiqE38.5010tiveUnspecified osteoarthritis, unspecified siteM19.9010tiveSynovial cyst of popliteal space [[place]], unspecified kneeM71.tiveChronic kidney disease, jxktvoxttfgG95.91 ActiveAltered mental status, sfdkoyqgdfcX91.8210tivePresence of unspecified artificial hip frxybV60.05614tiveRheumatoid arthritis with rheumatoid factor of multiple sites without organ or systems yaddlgpnjphM41.79 01/04/2025tiveOther specified postprocedural qlnmmtO47.91839tive Chronic peptic ulcer, site unspecified, without hemorrhage or vfyvlscwnrwP70.7 01/04/2025tiveFoot drop, left footM21.46134tiveSpinal stenosis, lumbar region with neurogenic mizrkcwrbghcI93.08549tiveOther intervertebral disc degeneration, lumbar region with discogenic back pain and lower iukwolbbhxqljG81.623375ActiveAge-related osteoporosis without current pathological hertzcukX24.0105ActiveUnspecified kyphosis, site imfsdpejhrbG44.288995ActiveRetention of urine, rvezpsnigiiJ17.91 ActivePersonal history of other diseases of the circulatory fnjlirT57.79 01/04/2025tiveWedge compression fracture of first lumbar vertebra, subsequent encounter for fracture with yhgogafsjsvvvdS23.010D095ActiveShortness of hheuorV79.0216000CmmdlrIeyondjaqzcF34.610tiveNutritional deficiency, jsvmnydshpnN09.91tiveMuscle weakness (generalized)M62.81 01/05/2025tiveCandidiasis of skin and nailB37.tiveDifficulty in walking, not elsewhere qqndexatudO65.tiveDysphagia, unspecified R13.1011tiveOther speech tebnfbsepfcvK53.8901/07/2025tiveMethicillin resistant Staphylococcus aureus infection, unspecified siteA49.021 ActiveHypo-osmolality and jqcckhummnchJ96.1115Active Results Test Result Date/Time Value / Unit Interp. Refere nce Range Tuberculosis reaction wheal[ 51876-6] Tuberculosis reaction wheal [32654-1] 01/16/2025 05:00 PM See note TB testTuberculosis reaction wheal[44352-2]?Tuberculosis reaction wheal [13587-7]01/04/2025 10:46 AM0 mmNEG Allergies, adverse reactions, alerts Substance Reaction Date Status Type No allergies have been recorded Non TkpuZcuvvt10/31/2025Non Yodtzmybhxhs97/31/2025Non EgdjUbratxq25/31/2025Non DrugPenicillins (PCN)01/04/2025Non Drug Immunizations Vaccine Route Date Status COVID-19 Vaccine Unassigned Route of Administration Completed COVID-19 Vaccine Unassigned Route of Administration Completed COVID-19 Vaccine Unassigned Route of Administration Completed COVID-19 Vaccine Unassigned Route of Administration Completed COVID-19 Vaccine Unassigned Route of Administration Completed COVID-19 Vaccine Unassigned Route of Administration Completed Medications Medication Instructions Route Dosage Frequency Start Date Stop Da te Indications Status acetaminophen 325 mg tablet (acetaminophen) 2 tabs, oral, Every 6 Hours - PRN, pain oral 1.0 6.0 h 01/04/2025 Activeallopurinol 300 mg tablet (allopurinol)1 tablet, oral, Once A Dayoral1.0 1.0 d1Gout, unspecifiedActiveatorvastatin 40 mg tablet (atorvastatin)1 tablet, oral, At Bedtimeoral1.Pure hypercholesterolemia, unspecified Activediltiazem HCl 120 mg tablet (diltiazem HCl)1 tab, oral, Once A Dayoral1.0 1.0 Peripheral vascular disease, unspecifiedActiveZosyn in dextrose (iso-osm) (eaypdqjinmis-smaowcorqs-xrrnee) 3.375 gram/50 mL piggyback (Zosyn in dextrose (iso-osm) (isshqepeoxfw-lmpidchkvu-dqdtnq))3.375 gram, intravenous, Three Times A Dayintravenous1.08.0 h1Urinary tract infection, site not specifiedActivebudesonide 0.5 mg/2 mL suspension for nebulization (budesonide)2 ml, inhalation, Twice A Dayinhalation1.012.0 h 01/04/2025Shortness of breathActivefluconazole 200 mg tablet (fluconazole)1 tab, oral, Once A Dayoral1.01.0 d1andidiasis of skin and nail Activeheparin (porcine) 5,000 unit/mL solution (heparin (porcine))5,000 units, injection, Twice A Day1.012.0 h1Longstanding persistent atrial fibrillationActiveipratropium-albuterol 0.5 mg-3 mg(2.5 mg base)/3 mL solution for nebulization (ipratropium-albuterol)3 ml, inhalation, Every 8 Hours - PRN, wheezinginhalation1.08.0 h1Shortness of breathActive levothyroxine 150 mcg tablet (levothyroxine)1 tablet, oral, Once A Dayoral1.01.0 d1Hypothyroidism, unspecifiedActiveMagOx (magnesium oxide) 400 mg (241.3 mg magnesium) tablet (MagOx (magnesium oxide))1 tablet, oral, Once A Day oral1.01.0 01/04/2025Gout, unspecifiedActiveMiralax (polyethylene glycol 3350) 17 gram/dose powder (Miralax (polyethylene glycol 3350))17gm, oral, Once A Day - PRN, constipationoral1.01.0 5Activenystatin 100,000 unit/gram powder (nystatin)1 application, topical, Twice A Day, apply to affected areas twice dailytopical1.012.0 h1515Activepantoprazole 40 mg tablet,delayed release (DR/EC) (pantoprazole)1 tab, oral, Once A Dayoral1.01.0 01/04/2025 Chronic peptic ulcer, site unspecified, without hemorrhage or perforationActive potassium chloride 10 mEq tablet,ER particles/crystals (potassium chloride)1 tablet, oral, Once A Dayoral1.01.0 01/04/2025HypokalemiaActivepramipexole 0.25 mg tablet (pramipexole)1 tablet, oral, Once A Day - PRN, give once daily for tremors prnoral1.01.0 5Activesennosides-docusate sodium 8.6-50 mg tablet (sennosides-docusate sodium)2 tab, oral, Once A Day, constipationoral1.0 1.0 d15ActiveZosyn in dextrose (iso-osm) (psuwlfpvoavq-dmfcueykta-yvilgk) 3.375 gram/50 mL piggyback (Zosyn in dextrose (iso-osm) (agvuwftlsuud-sxyolfqwzb-rrgvgm))3.375 gram, intravenous, Three Times A Dayintravenous1.08.0 h1/330913/5Cellulitis of right lower limbActive Normal Saline Flush (sodium chloride 0.9 % (flush)) - syringe (Normal Saline Flush (sodium chloride0.9 % (flush)))10mL, injection, Flush before and after IV medication, flush with 10 mL NS prior to medication administration and 10mL NS after medication is complete1.08.0 h1/801343/5ActiveZosyn in dextrose (iso-osm) (tnnanuubhozd-iuewjtiita-mluvut) 3.375 gram/50 mL piggyback (Zosyn in dextrose (iso-osm) (gsnuhqznonvw-txrztvumpq-pzyjrp))3.375 gram, intravenous, Three Times A Dayintravenous1.08.0 h1/159431/5Cellulitis of right lower limbActiveZosyn in dextrose (iso-osm) (egcbgyqaklyh-kwltrrsxqg-ftugsn) 3.375 gram/50 mL piggyback (Zosyn in dextrose (iso-osm) (oxsovdiezidd-qwfbsqemdz-cfxpij))3.375 gram, intravenous, Three Times A Day intravenous1.08.0 h1/5Cellulitis of right lower limbActiveZosyn in dextrose (iso-osm) (hefqwznsznrb-lzuzlwaoll-issblg) 3.375 gram/50 mL piggyback (Zosyn in dextrose (iso-osm) (hvjsnxdzhorx-wwyhcolphv-rmdkpz))3.375 gram, intravenous, Three Times A Dayintravenous1.08.0 h103/08/323872/08/2024 Cellulitis of right lower limbActivefluconazole 200 mg tablet (fluconazole)1 tab, oral, Once A Dayoral1.01.0 d1511/andidiasis of skin and nailActiveZyvox (linezolid) 600 mg tablet (Zyvox (linezolid))1 tab, oral, Twice A Day, MRSA rt. heeloral1.012.0 h1511/5Activediltiazem HCl 120 mg capsule,extended release 12 hr (diltiazem HCl)120mg, oral, Once A Dayoral1.01.0 d103/10/2024Longstanding persistent atrial fibrillationActiveheparin (porcine) 5,000 unit/mL solution (heparin (porcine))5,000 units, injection, Twice A Day1.0 12.0 h1511/Longstanding persistent atrial fibrillationActive Enemeez (docusate sodium) 283 mg/5 mL enema (Enemeez (docusate sodium))1 enema, rectal, Once A Day - PRN, Step 3: If no BM by morning of day 4, administer 1 Enemeez MicroEnema in the morning. Indication for use: ConstipationStep 4: If no BM within 1 hour of administering Enemeez, contact provider.rectal1..0 d 515ActiveMiralax (polyethylene glycol 3350) 17 gram/dose powder (Miralax (polyethylene glycol 3350))17gm (1 capful), oral, Once A Day - PRN, Step 1: If no BM by Day 2, Mix 17gm (1 capful) in 4-8oz beverage of choice in the morning. Indication for use: Constipationoral1..0 d15103/14/2024 ActiveSantyl (collagenase clostridium histo.) 250 unit/gram ointment (Santyl (collagenase clostridium histo.))nickel thick, topical, Once A Day, Apply to right heel and cover with foam dressing dailytopical1..0 d15Active sodium chloride 1,000 mg tablet,soluble (sodium chloride)2 tablets, miscellaneous, Once A Day..0 01/16/2025Hypo-osmolality and hyponatremia Active Vital Signs Date Vital Result Comment 01/04/2025 04:37 PM Temperature (8310-5) 98.3 [degF] Oxygen Saturation (30287-3)96 %Respiratory Rate (9279-1)18 /minHeart Rate (8867-4)64 /minBlood Pressure Systolic (8480-6)128 mm[Hg]Blood Pressure Diastolic (8462-4)72 mm[Hg]01/04/2025 03:43 PMTemperature (8310-5)97.9 [degF] Oxygen Saturation (85353-8)98 %Respiratory Rate (9279-1)16 /minHeart Rate (8867-4)78 /minBlood Pressure Systolic (8480-6)110 mm[Hg]Blood Pressure Diastolic (8462-4)54 mm[Hg]Body Height (8302-2)67 [in_us]01/05/2025 08:57 AM Temperature (8310-5)98.1 [degF]Oxygen Saturation (89923-4)98 %Respiratory Rate (9279-1)16 /minHeart Rate (8867-4)89 /minBlood Pressure Systolic (8480-6)133 mm[Hg]Blood Pressure Diastolic (8462-4)69 mm[Hg]01/05/2025 10:27 AMTemperature (8310-5)98.9 [degF]Oxygen Saturation (77145-5)97 %Respiratory Rate (9279-1)18 /minHeart Rate (8867-4)78 /minBlood Pressure Systolic (8480-6)126 mm[Hg]Blood Pressure Diastolic (8462-4)76 mm[Hg]01/05/2025 10:05 PMTemperature (8310-5)97.9 [degF]Oxygen Saturation (67923-7)97 %Respiratory Rate (9279-1)18 /minHeart Rate (8867-4)74 /minBlood Pressure Systolic (8480-6)138 mm[Hg]Blood Pressure Diastolic (8462-4)78 mm[Hg]01/06/2025 01:05 PMTemperature (8310-5)98.6 [degF] Oxygen Saturation (77634-5)95 %Respiratory Rate (9279-1)18 /minHeart Rate (8867-4)68 /minBlood Pressure Systolic (8480-6)132 mm[Hg]Blood Pressure Diastolic (8462-4)78 mm[Hg]01/06/2025 11:20 PMTemperature (8310-5)98.1 [degF] Oxygen Saturation (65250-6)95 %Respiratory Rate (9279-1)18 /minHeart Rate (8867-4)70 /minBlood Pressure Systolic (8480-6)140 mm[Hg]Blood Pressure Diastolic (8462-4)79 mm[Hg]01/07/2025 11:30 AMTemperature (8310-5)98 [degF] Oxygen Saturation (26492-9)95 %Respiratory Rate (9279-1)18 /minHeart Rate (8867-4)82 /minBlood Pressure Systolic (8480-6)115 mm[Hg]Blood Pressure Diastolic (8462-4)61 mm[Hg]01/07/2025 11:09 AMBody Weight (17876-7)186.2 [lb_av] Body Mass Index (90241-7)29.16 kg/m201/08/2025 01:29 AMTemperature (8310-5)98 [degF]Oxygen Saturation (11774-2)95 %Respiratory Rate (9279-1)18 /minHeart Rate (8867-4)75 /minBlood Pressure Systolic (8480-6)123 mm[Hg]Blood Pressure Diastolic (8462-4)62 mm[Hg]01/08/2025 05:35 AMTemperature (8310-5)98 [degF] Respiratory Rate (9279-1)18 /minHeart Rate (8867-4)74 /minBlood Pressure Systolic (8480-6)155 mm[Hg]Blood Pressure Diastolic (8462-4)80 mm[Hg]01/08/2025 09:32 AMBlood Pressure Systolic (8480-6)136 mm[Hg]Blood Pressure Diastolic (8462-4)83 mm[Hg]01/08/2025 09:27 AMTemperature (8310-5)98.5 [degF]Oxygen Saturation (96017-1)94 %Respiratory Rate (9279-1)18 /minHeart Rate (8867-4)84 /min01/08/2025 12:09 PMTemperature (8310-5)98.5 [degF]Oxygen Saturation (53096-5)94 %Respiratory Rate (9279-1)18 /minHeart Rate (8867-4)84 /minBlood Pressure Systolic (8480-6)136 mm[Hg]Blood Pressure Diastolic (8462-4)83 mm[Hg] 01/09/2025 10:30 AMTemperature (8310-5)98 [degF]Oxygen Saturation (40472-1)96 % Respiratory Rate (9279-1)18 /minHeart Rate (8867-4)66 /minBlood Pressure Systolic (8480-6)116 mm[Hg]Blood Pressure Diastolic (8462-4)53 mm[Hg]01/10/2025 10:35 AMTemperature (8310-5)98.2 [degF]Oxygen Saturation (43853-3)95 % Respiratory Rate (9279-1)18 /minHeart Rate (8866-4)63 /minBlood Pressure Systolic (8480-6)104 mm[Hg]Blood Pressure Diastolic (8462-4)53 mm[Hg]01/11/2025 09:41 AMTemperature (8310-5)98.3 [degF]Oxygen Saturation (75636-9)97 % Respiratory Rate (9279-1)18 /minHeart Rate (8866-4)75 /minBlood Pressure Systolic (8480-6)144 mm[Hg]Blood Pressure Diastolic (8462-4)76 mm[Hg]01/12/2025 10:19 AMTemperature (8310-5)98.2 [degF]Oxygen Saturation (65260-8)96 % Respiratory Rate (9279-1)16 /minHeart Rate (8866-4)68 /minBlood Pressure Systolic (8480-6)128 mm[Hg]Blood Pressure Diastolic (8462-4)62 mm[Hg]01/12/2025 12:08 PMTemperature (8310-5)98.2 [degF]Oxygen Saturation (29942-7)96 % Respiratory Rate (9279-1)16 /minHeart Rate (67-4)68 /minBlood Pressure Systolic (8480-6)128 mm[Hg]Blood Pressure Diastolic (8462-4)62 mm[Hg]01/13/2025 09:41 AMTemperature (8310-5)98 [degF]Oxygen Saturation (76706-4)95 %Respiratory Rate (9279-1)18 /minHeart Rate (8867-4)76 /minBlood Pressure Systolic (8480-6) 110 mm[Hg]Blood Pressure Diastolic (8462-4)71 mm[Hg]01/13/2025 12:06 PM Temperature (8310-5)98 [degF]Oxygen Saturation (61882-8)95 %Respiratory Rate (9279-1)18 /minHeart Rate (8867-4)76 /minBlood Pressure Systolic (8480-6)110 mm[Hg]Blood Pressure Diastolic (8462-4)71 mm[Hg]01/14/2025 09:35 AMTemperature (8310-5)98.2 [degF]Oxygen Saturation (44110-3)93 %Respiratory Rate (9279-1)18 /minHeart Rate (8867-4)74 /minBlood Pressure Systolic (8480-6)137 mm[Hg]Blood Pressure Diastolic (8462-4)63 mm[Hg]01/15/2025 09:35 AMTemperature (8310-5)98.4 [degF]Oxygen Saturation (77404-3)96 %Respiratory Rate (9279-1)18 /minHeart Rate (8867-4)77 /minBlood Pressure Systolic (8480-6)142 mm[Hg]Blood Pressure Diastolic (8462-4)80 mm[Hg]01/15/2025 09:09 PMBody Weight (33405-6)169.8 [lb_av] Body Mass Index (44860-2)26.59 kg/m201/16/2025 11:13 AMTemperature (8310-5)98.1 [degF]Oxygen Saturation (68834-6)96 %Respiratory Rate (9279-1)18 /minHeart Rate (8867-4)77 /minBlood Pressure Systolic (8480-6)138 mm[Hg]Blood Pressure Diastolic (8462-4)75 mm[Hg] Social History No smoking Hx information available Encounters Type CPT Code Date Location Provider Indication s encounter report 01/04/2025 11:06 Kirit Bull MD01encounter lnihbv9001/04/2025 01:20 PMMendy Bull MD01 Advance Directives Directive Description Verification Date Supporting Document(s) Resuscitation
--- OUTSIDE RECORDS SUMMARY | 2025-01-16 14:28 | XMS_ITS | Clinical Summary ---
Author Organization [facility] Address [address] [place] [address] Phone Care Team Providers Care Director Of Career Resources Name Role Phone Feliciano Ambrosio Louis HARGROVE Primary Care Provider [phone] Allergies Active AllergyReactionsCriticalityNoted DateCommentsFentanylDizziness,Nausea Only02/16/20231810DbccmhvhdskxEudaj30/13/4933QfkvromlmgxXtfbq50/13/2023Zolpidem Cvmohcr6602/16/2023 Medications MedicationSigDispense QuantityRefillsLast FilledStart DateEnd DateStatus acetaminophen [...] tablet by mouth once daily. 90 tablet 309506Active Active Problems ProblemNoted DateDiagnosed DateLong term current use of anticoagulant therapy 02/16/2024MI 30.0-30.9,adult02/16/2024Former kqppad8202/16/2024hronic atrial ndmrfomvjvtq90/13/2023Echocardiogram hfazsvmi41/13/0172Djobl81/13/2023rimary ipfmjzunfheu62/13/2023Heart failure, NYHA class 212/Hyperlipemia 02/16/2023Mild CAD02/16/2023 Resolved Problems ProblemNoted DateDiagnosed DateResolved DateNon-ischemic cardiomyopathy Encounters DateTypeDepartmentCare KfspUtsqxuifzdz91/09/2025Scanned Document [facility] [address] [place] [address] Scanning, Generic Provider 11/23/2024Refill [facility] [address] [address] Irineo Mcintyre, Chronic atrial fibrillation (Multi); Essential hypertension, benign; Non-ischemic cardiomyopathy (Multi)from Last 3 Months Immunizations ImmunizationAdministration DatesNext DueInfluenza, Gtwuqcpbodn52/01/2019, 11/05/2017,04/07/2016Pneumococcal conjugate vaccine, 13-valent (PREVNAR 13) 04/07/2016 Family History Medical HistoryRelationNameCommentsNo Known ProblemsMotherRelationNameStatus CommentsMother Social History Tobacco UseTypesPacks/DayYears UsedDateSmoking Tobacco: FormerCigarettesQuit: 1980Smokeless Tobacco: Never Tobacco Cessation:Counseling Given: Yes Alcohol UseStandard Drinks/WeekCommentsYes3 (1 standard drink = 0.6 oz pure alcohol)Sex and Gender InformationValueDate RecordedSex Assigned at BirthNot on fileLegal DpxMypt98/26/2022 2:53 PM ESTGender IdentityNot on fileSexual OrientationNot on file Last Filed Vital Signs Vital SignReadingTime TakenCommentsBlood Hefjesfg397/8602/16/2024 3:20 PM EST Dzayp19249/12/2024 3:20 PM ESTTemperature--Respiratory Rate--Oxygen Saturation-- Inhaled Oxygen Concentration--Fikrwc08.6 kg (191 lb)02/16/2024 3:20 PM ESTHeight 167.6 cm (5' 6 )02/16/2024 3:20 PM ESTBody Mass Index30.8302/16/2024 3:20 PM EST Plan of Treatment DateTypeDepartmentCare Team (Latest Contact Info)Ynzwvqabbwm30/09/2025 10:00 AM ESTOffice Visit [facility] [address] [address] Enedelia Gomez, [facility] [address] [facility] [address] [place] [address] Health MaintenanceDue DateLast DoneCommentsCreatinine Level1941Lipid Panel 1941Medicare Annual Wellness Visit (AWV)2Potassium Level 1941TSH Level2Diabetes Hlpilurur05/11/1960DTaP/Tdap/Td Vaccines (1 - Tdap)07/16/1963Zoster Vaccines (1 of 2)07/16/1991Pneumococcal Vaccine (2 of 2 - PPSV23, PCV20, or PCV21)RSV High Risk: (Elderly (60+) or Population) (1 - 1-dose 75+ series)2016Influenza Vaccine (#1) 510/, 12/24/2021, 12/22/2019, Additional history existsCOVID-19 Vaccine ( season)510/, 02/18/2021, 05/28/2020, Additional history gpnhoaXbfrvilkcoczfw71/09/202610/11/2024, 02/23/2024, 01/10/2022, Additional history existsHIB VaccinesAged OutNo [...] this topic Procedures Procedure NamePriorityDate/TimeAssociated DiagnosisCommentsECHOCARDIOGRAM 12/13/2024 from Last 3 Months Results * Echocardiogram (12/13/2024) Narrative 12/13/2024 Ordered by an unspecified provider. Authorizing ProviderResult TypeResult StatusGeneric Provider ScanningCV ECHO PROCEDURESFinal Result from Last 3 Months Insurance Care Teams Team MemberRelationshipSpecialtyStart DateEnd Date Feliciano Ambrosio DO PCP - Qclkell51/1/21
--- OUTSIDE RECORDS SUMMARY | 2025-01-16 14:28 | XMS_ITS | Clinical Summary ---
Author Organization [facility] Address [address], [address] [place] [address] Care Team Providers Care Straightener And Aligner Name Role Phone Feliciano Ambrosio DO Primary Care Provider [phone] Allergies Active AllergyReactionsCriticalityNoted RehtSahlstseFbzbrxulXdg20/29/2018 Can't remember goofy WxiheefcbzvyKvg85/29/2018 Can't remember goofy and agitated HirxjtvttbiTzs99/29/2018 As child ZolpidemOther (See Comments)Low09/23/2020 Can't remember [...] Safety Domain Source: IP Abuse ScreeningAnswerDate RecordedPhysical ifrmxJrryqr02/17/2024Verbal abuseDenies 02/21/2024Emotional humumXmxour39/17/2024Financial ovkycMxeyxi95/17/2024Sexual pdsmeSzpjqe13/17/2024Sex and Gender InformationValueDate RecordedSex Assigned at BirthNot on fileLegal DzlJagv0704/16/2012 8:10 PM ESTGender IdentityNot on file Sexual OrientationNot on file Last Filed Vital Signs Vital SignReadingTime TakenCommentsBlood Vcuzcrlj796/7302/27/2024 10:46 AM EST Jkocr882602/27/2024 10:46 AM YYKGcsbtvrtqrn66.7 ??C (98 ??F)02/27/2024 10:46 AM ESTRespiratory Sbxa476304/29/2023 10:46 AM ESTOxygen Wcbcpzzoog99%02/27/2024 10:46 AM ESTInhaled Oxygen Concentration--Kpeebp00.3 kg (190 lb 3.2 oz)02/21/2024 7:45 AM FWDOhbvuz554.6 cm (5' 6 )02/21/2024 7:45 AM ESTBody Mass Index30.7104/23/2023 7:45 AM EST Plan of Treatment Health MaintenanceDue DateLast YmaqRahejxjgRouiiz90/11/1951Depression Screen 4DTaP/Tdap/Td vaccine (1 - Tdap)1Shingles vaccine [...] Mendes TypeRelation to PatientDate of BirthPhone Billing AddressPersonal/CiwoelTwlu36/11/1941 [address] [place] [address] * Guarantor: Krista Mendes TypeRelation to PatientDate of BirthPhone Billing AddressPersonal/TepwqqWtlu93/11/1941 [address] [place] [address] Advance Directives * Full Code (Latest Code Status on File) Date ActivatedDate JhmmjhlkwqgXojeeerg66/17/2024 7:35 AM02/27/2024 3:35 PM Care Teams Team MemberRelationshipSpecialtyStart DateEnd Date Feliciano Ambrosio DO [facility]
--- OUTSIDE RECORDS SUMMARY | 2025-01-16 14:28 | XMS_ITS | Clinical Summary ---
Author Organization [facility] Address [id number] [address] [place] [address] Care Team Providers Care Property Analyst Name Role Phone TjcatieEdmondan Louis HARGROVE Primary Care Provider [phone] Allergies Active AllergyReactionsCriticalityNoted QtmaTcdjmbxaSlsslwkx56/20/2021Fentanyl 09/02/20174994Jzvqidzdicvc70/29/7075Ssjlkhxvebp72/01/2005 Other reaction(s): Mental Status Change Medications MedicationSigDispense [...] MOUTH ONCE EVERY MORNING ON AN EMPTY XRIUQEI756Active magnesium oxide (MAG-OX) 400 mg tablet Take [...] DateBenign prostatic hyperplasia (BPH) with urinary urge otpcpzssrann82/07/2019 Overview (05/18/2022): urolift 12/21 (Ameena) Was using [...] standard drink = 0.6 oz pure alcohol)ChildcareAnswerDate KrdrbqocWklbhgmtpVcaykjx09/04/2019EmploymentAnswer Date EvuejeowOwpafcyjbcEfperfb25/04/2019Hunger ScreeningAnswerDate Recorded Within the past 12 months we worried whether our food would run out before we got money to buy more.Never True05/18/2022Within the past 12 months the food we bought just didn't last and we didn't have money to get more.Never True 05/18/2022urpose - LifeAnswerDate RecordedPurpose and direction in lifeUnknown 03/31/2020ex and Gender InformationValueDate RecordedSex Assigned at BirthNot on fileLegal MffMtxo8810/08/2014 8:36 PM EDTGender IdentityNot on fileSexual OrientationNot on file Last Filed Vital Signs Vital SignReadingTime TakenCommentsBlood Amtftizz421/7905/18/2022 11:26 AM EDT Srqdd134405/18/2022 11:26 AM EDTTemperature--Respiratory Fuxm212005/18/2022 11:26 AM EDTOxygen Saturation--Inhaled Oxygen Concentration--Umknko46.6 kg (180 lb) 05/18/2022 11:26 AM GLMVsqxym356.6 cm (5' 6 )05/18/2022 11:26 AM EDTBody Mass Index29.05005/18/2022 11:26 AM EDT Plan of Treatment Health MaintenanceDue DateLast DoneCommentsDepression Jqokxgfez31/11/1954Tobacco Pmqqyrnmg32/11/1954DTaP,Tdap and Td Vaccines (1 - Tdap)1960Zoster (Shingles) Vaccine (1 of 2)07/16/1991Fall Risk Aqyhgdcsf11/11/2007RSV ( or age 60+ yrs) (1 - 1-dose 75+ series)2016COVID-19 Vaccine (2024- season)/, 02/18/2021, 05/28/2020, Additional history exists Influenza Pgfbamw08/, 12/22/2019, 12/06/2019, Additional history exists Medical Devices Not on file Insurance Care Teams Team MemberRelationshipSpecialtyStart DateEnd Date Feliciano Ambrosio DO PCP - GeneralFamily Medicine06/05/18
--- OUTSIDE RECORDS SUMMARY | 2025-01-16 14:29 | XMS_ITS | Patient Health Record ---
Author Organization [facility] Address [address] [place] [address] Care Team Providers Care Medical Engineer Name Role Phone Randi Burris Unavailable [phone] SIXTO SIMMONS CNP Unavailable Unavailable Gustabo May Unavailable [phone] Maxine Torres Unavailable Allergies Allergen (clinical drug ingredient) Drug/Non Drug Allergy documented on EMR Reaction Allergy Type Onset Date Status penicillin (uncoded)UnknownAllergyActiveindomethacinindomethacinUnknownDrug AllergyActivefentanylfentaNYLUnknownDrug AllergyActivezolpidemAmbienUnknownDrug AllergyActive Results Component Value Reference Range Notes .eGFR Reviewed date:04/25/2024 11:56:06 AM Interpretation: Performing Lab: Notes/Report: [address] [address] Estimated GFR 55 >=60 mL/min/1.73m? ? = -0.241 (females) or -0.302 (males) SCr (standardized serum creatinine) = mg/dL Stages of Chronic Kidney Disease GFR eGFR = 142 X min(SCr/?, 1)? X max(SCr /?, 1)-1.200 X 0.9938Age X 1.012 [if female] Stage 3b Moderate to severe loss of kidney function 44 to 33 eGFR (estimated glomerular filtration rate) = mL/min/1.73 m2 ? = 0.7 (females) or 0.9 (males) [facility] have implemented the eGFR calculation approach that does not have a coefficient for race and that conforms to the NKF-ASN Task Force Recommendations. max = indicates the maximum of SCr/? or 1 Abbreviations/Units: Stage 5 Kidney failure Less than 15 Age = years Stage 3a Mild to moderate loss of kidney function 59 to 45 Stage 4 Severe loss of kidney function 29 to 15 GFR calculated using the CKD-Epi Creatinine Equation (2020): min = indicates the minimum of SCr/? or 1 Surgery Scheduling (Not yet reviewed by provider) Interpretation: Performing Lab: Notes/Report: Primary Insurance Company: MEDICARE Surgeon/Assist:ST SAGE/ AMIE OR JOSEurgery Location[facility] Date & Time:04/13/24 @ 10:30AMHosp arrival time day of:9:30AMSurgery End Time:12:00PM Procedure:LUMBAR I &DSpecial Equipment:PRONE,ANABELLA TABLEAdmission Type: INPATIENTAnesthesia Type/CPNB:GENERALPost-op Appointment Date:05/25/24 @ 10:30AM BELLKATHRYNcheduler:Leno Physician:CLEAREDHistory & Physical Appointment Date/:04/13/24Diff Auto Reviewed date:04/25/2024 11:56:11 AM Interpretation: Performing Lab: Notes/Report: [address] [address]Cdseqj Auto63.447.2-70.8 %Lymph Auto25.527.2-40.8 %[place] Auto6.5 4.7-13.9 %Eos Auto3.90.0-6.1 %Basophil Auto0.70.0-1.2 %Neutro Absolute5.51.8-7.7 x10*3/mcLLymph Absolute2.21.0-4.8 x10*3/mcLMono Absolute0.60.3-1.1 x10*3/mcLEos Absolute0.30.0-0.4 x10*3/mcLBaso Absolute0.10.0-0.2 x10*3/mcLMagnesium Reviewed date:04/25/2024 11:56:11 AM Interpretation: Performing Lab: Notes/Report: [address] [address]Potjaijjs Lvl1.91.7-2.4 mg/dLTroponin-I Reviewed date:04/25/2024 11:56:06 AM Interpretation: Performing Lab: Notes/Report: [address] [address]Xpllawdc-O<0.030.00-0.03 ng/mL Positive >= 0.04 Negative <= 0.03 An increased Troponin-I value, in the absence of myocardial ischemia, may indicate other etiologiesof cardiac damage. 99th Percentile Cutoff for Negative/Positive: CMP Reviewed date:04/25/2024 11:56:11 AM Interpretation: Performing Lab: Notes/Report: [address] [address]Ykgjzf Dte251741-860 mmol/LPotassium Lvl3.23.4-4.8 mmol/L Qbwsunwy2921-130 mmol/GTA16175-08 mmol/LAnion Fxt85-58Tecmkpw Lkc5904-35 mg/dL EGB860-02 mg/dLCreatinine Lvl1.300.61-1.24 mg/dLBUN Crea Ratio19.210.0-20.0Bili Total0.80.3-1.2 mg/dLAlk Seqv10958-69 IU/KWLL8735-20 IU/TECS7074-20 IU/LTotal Protein6.66.5-8.1 g/dLAlbumin Lvl3.03.2-4.9 g/dLAG Ratio0.81.1-2.2Calcium Lvl8.5 8.5-10.3 mg/dLPhosphorus Reviewed date:04/25/2024 11:56:11 AM Interpretation: Performing Lab: Notes/Report: [address] [address]Xpfjyokqkg4.12.5-4.6 mg/dLBNP Reviewed date:04/25/2024 11:56:06 AM Interpretation: Performing Lab: Notes/Report: [address] [address]DWT8670-740 pg/mLCT HEAD WO CONTRAST Reviewed date:03/06/2024 07:29:49 AM Interpretation: Performing Lab: Notes/Report: CT head without contrast [facility] [place] [address] [place], [place] [address], Original Ordering Provider: AMY OCONNELL, Interested Provider Role: CopiedXR CHEST PORTABLE Reviewed date:03/06/2024 07:29:49 AM Interpretation: Performing Lab: Notes/Report: 1 view chest x-ray [place] [address] [place] [address], Original Ordering Provider: Joanne LAWRENCE Provider Role: CopiedXR LUMBAR SPINE 1 VW Reviewed date:02/22/2024 03:19:14 PM Interpretation: Performing Lab: Notes/Report: MOBILE LATERAL LUMBAR SPINE: [place] [address] [place] [address], Original Ordering Provider: Joanne CARLOS Provider Role: OrderingSurgery Scheduling (Not yet reviewed by provider) Interpretation:Pre-Op orders: CBC,BMP,PT/PTT, TYPE AND SCREEN,EKG,Chest X- ray,MRSA PCR NASAL SWAB Performing Lab: Notes/Report: Pre-Op orders: CBC,BMP,PT/PTT, TYPE AND SCREEN,EKG,Chest X-ray,MRSA PCR NASAL SWABPrimary Insurance Company:MEDICARESurGreenlingon/Assist:KILO SAGE/AMIE OR GUSTABO [facility] @ 3PMHosp arrival time day of: 1PMSurgery End Time:5:30PMProcedure:L2-5 DECOMPRESSION AND NON INSTRUMENTED FUSIONSpecial Equipment:SEP, PRONE, ANABELLA TABLE, SURGALIGNDiagnosis:M51.36 DDD LUMB ARAdmission Type:OUTPATIENTAnesthesia Type/CPNB:GENERALPost-op Appointment Date:04/13/24 @ 9:20AM BELLRIVKAUELab Location:[facility] Date/Time:ON OR BEFORE 02/09/24Scheduler:CARLOSlearmichelle Physician:CHEIKH GA 02/13/24 @ 8:45AM Clearance Appt Date/CRISTO MEYER 02/16/24 @ 2:50PMHistory & Physical Appointment Date/:02/10/24 @ 9:10AM BELLRIVKAUEGREGORIOC w/ Diff Reviewed date:04/25/2024 11:56:11 AM Interpretation: Performing Lab: Notes/Report: [address] [address]JAD7.74.5-11.0 x10*3/mcLRBC2.784.30-5.80 x10*6/mcLHgb8.913.5- 17.5 g/dLHct26.741.0-53.0 %MCV96.180.0-100.0 fLMCH32.227.0-35.0 avBOXG59.531.0- 37.0 %Yonsviig173544-000 x10*3/wpDGIT21.711.6-14.8 %Mean Platelet Volume6.76.7- 10.6 fL.eGFR Reviewed date:04/16/2024 01:17:51 PM Interpretation: Performing Lab: Notes/Report: [address] [address]Hjxgqyzfd GFR46>=60 mL/min/1.73m? min = indicates the minimum of SCr/? or 1 ? = 0.7 (females) or 0.9 (males) eGFR = 142 X min(SCr/?, 1)? X max(SCr /?, 1)-1.200 X 0.9938Age X 1.012 [if female] Abbreviations/Units: Stage 5 Kidney failure Less than 15 Stage 3a Mild to moderate loss of kidney function 59 to 45 Stage 3b Moderate to severe loss of kidney function 44 to 33 Stage 4 Severe loss of kidney function 29 to 15 GFR calculated using the CKD-Epi Creatinine Equation (2020): Age = years eGFR (estimated glomerular filtration rate) = mL/min/1.73 m2 SCr (standardized serum creatinine) = mg/dL max = indicates the maximum of SCr/? or 1 Stages of Chronic Kidney Disease GFR ? = -0.241 (females) or -0.302 (males) [facility] have implemented the eGFR calculation approach that does not have a coefficient for race and that conforms to the NKF-ASN Task Force Recommendations. CBC w/ Diff Reviewed date:04/16/2024 01:17:51 PM Interpretation: Performing Lab: Notes/Report: [address] [address]WQA2.54.5-11.0 x10*3/mcLRBC2.414.30-5.80 x10*6/mcLHgb7.713.5- 17.5 g/dLHct23.341.0-53.0 %MCV96.580.0-100.0 fLMCH32.027.0-35.0 vbVCUM12.231.0- 37.0 %Jaywuqne467883-237 x10*3/wcYLKF14.411.6-14.8 %Mean Platelet Volume6.96.7- 10.6 fL.AMI 2 Hr Reviewed date:04/25/2024 11:56:06 AM Interpretation: Performing Lab: Notes/Report: [address] [address] Hour Troponin<0.030.00-0.03 ng/mL Positive >= 0.04 An increased Troponin-I value, in the absence of myocardial ischemia, may indicate other etiologiesof cardiac damage. Negative <= 0.03 99th Percentile Cutoff for Negative/Positive: 2 Hour Whuhvmzmv81.817.4-105.7 ng/mLABO/Rh Reviewed date:04/16/2024 01:17:51 PM Interpretation: Performing Lab: Notes/Report: [facility] (UNKNOWN) [address] [place] [address]TZU/RhABO/Rh: O POSABSC Auto Reviewed date:04/16/2024 01:17:51 PM Interpretation: Performing Lab: Notes/Report: [facility] ([facility]) [address] [place] [address]QHRG AutoAntibody Screen: Negative ABSCMRSA, PCR Reviewed date:04/16/2024 01:17:51 PM Interpretation: Performing Lab: Notes/Report: [address] [address]Psyrxsmoksw Resistant Staph aurus(MRSA)Not DetectedNot Detected [employer] Xpert MRSA Assay is a qualitative in vitro diagnostic test designed for rapid detectionof Methicillin-Resistant Staphylococcus aureus (MRSA) from nasal swabs in patients at risk for nasal colonization.The test utilizes automated real-time polymerase chain reaction (PCR) to detect MRSA DNA,because the detection of MRSA is dependent on the number of organisms present. Mutations or polymorphisms in primer or probe binding regions may affect detection of new or unknown MRSA variants resulting in a false negative result. Mutations or polymorphisms in primer or probe binding regions may affect detection of new or unknown MRSA variants resulting in a false negative. Results from the Xpert MRSA Assay should be interpreted in conjunction with other laboratory and clinical data available to the clinician. A positive test result does not necessarily indicate the presence of viable organism. It is however,presumptive for the presence of MRSA.Test results might be affected by concurrent antibiotic therapy. Therefore, therapeutic success or failure cannot be assessed using this test because DNA might persist following antimicrobial therapy. LAB ONLY Result Called?NoMagnesium Reviewed date:04/16/2024 01:17:51 PM Interpretation: Performing Lab: Notes/Report: [address] [address]Tqdntkgms Lvl2.01.7-2.4 mg/Lee Bld Reviewed date:04/20/2024 08:42:56 AM Interpretation: Performing Lab: Notes/Report: [address] [address]Zphl Patient Name: Tavo Wallis [facility] : 1940 [place] Lee Below For Report No growth at 5 days. Final C Bld Reviewed date:04/20/2024 08:42:56 AM Interpretation: Performing Lab: Notes/Report: [address] [address]Udum : 1940 [facility] Patient Name: Tavo Wallis [place] RebolledodSly Below For Report No growth at 5 days. Final Basic Metabolic Profile Reviewed date:04/16/2024 01:17:51 PM Interpretation: Performing Lab: Notes/Report: [address] [address]Rlzddc Mii748884-682 mmol/LPotassium Lvl3.63.4-4.8 mmol/L Rzwhhtxe5965-315 mmol/VNO10299-07 mmol/LAnion Our38-11Uwevqid Ymh3735-37 mg/dL ZZS591-42 mg/dLCreatinine Lvl1.510.61-1.24 mg/dLBUN Crea Ratio15.210.0-20.0 Calcium Lvl8.58.5-10.3 mg/dLDiff Auto Reviewed date:04/16/2024 01:17:51 PM Interpretation: Performing Lab: Notes/Report: [address] [address]Ommhef Auto55.647.2-70.8 %Lymph Auto33.227.2-40.8 %[place] Auto6.6 4.7-13.9 %Eos Auto3.80.0-6.1 %Basophil Auto0.80.0-1.2 %Neutro Absolute4.11.8-7.7 x10*3/mcLLymph Absolute2.51.0-4.8 x10*3/mcLMono Absolute0.50.3-1.1 x10*3/mcLEos Absolute0.30.0-0.4 x10*3/mcLBaso Absolute0.10.0-0.2 x10*3/mcLRetic Count Reviewed date:04/16/2024 01:17:51 PM Interpretation: Performing Lab: Notes/Report: [address] [address]Tck60.041.0-53.0 %Reticulocyte1.60.8-2.5 %Ret Abs0.0370 Corrected Retic Count0.820.80-2.50 %Hgb Reviewed date:04/18/2024 07:51:19 AM Interpretation: Performing Lab: Notes/Report: [address] [address]Ccl8.013.5-17.5 g/dLHct26.141.0-53.0 %Ferritin Reviewed date:04/16/2024 01:17:51 PM Interpretation: Performing Lab: Notes/Report: [address] [address]Lgbqsskj Yqz443.523.9-336.2 ng/mLTIBC Reviewed date:04/16/2024 01:17:51 PM Interpretation: Performing Lab: Notes/Report: [address] [address]Zxhg Sat11.6>=16.0 %DFRQ470489-231 mcg/tLOqdiqzeruiw675433-156 mg/hXAcjs3899-543 mcg/dLFolate Lvl Reviewed date:04/16/2024 01:17:51 PM Interpretation: Performing Lab: Notes/Report: [address] [address]Ncufih Lvl5.9>=5.9 ng/mLA WHO Technical Consultation has determined that deficient Folate concentrations are considered to be less than 4 ng/mL.B12 Reviewed date:04/16/2024 01:17:51 PM Interpretation: Performing Lab: Notes/Report: [address] [address]Ohshxmd B12 Khf037936-273 pg/mLBasic Metabolic Profile Reviewed date:04/18/2024 07:51:19 AM Interpretation: Performing Lab: Notes/Report: [address] [address]Vnhwup Lgb683274-284 mmol/LPotassium Lvl3.73.4-4.8 mmol/L Akotkjuq60713-864 mmol/EZD64305-15 mmol/LAnion Owr59-95Iemtrsq Vfa9440-51 mg/dL KKE302-05 mg/dLCreatinine Lvl1.370.61-1.24 mg/dLBUN Crea Ratio14.610.0-20.0 Calcium Lvl8.48.5-10.3 mg/dLVanco Trough Reviewed date:04/18/2024 07:51:19 AM Interpretation: Performing Lab: Notes/Report: [address] [address]Xorqm Hdeboc46.810.0-15.0 mcg/mL.eGFR Reviewed date:04/18/2024 07:51:19 AM Interpretation: Performing Lab: Notes/Report: [address] [address]Ilgtggter GFR52>=60 mL/min/1.73m? Stage 4 Severe loss of kidney function 29 to 15 max = indicates the maximum of SCr/? or 1 Stage 3b Moderate to severe loss of kidney function 44 to 33 ? = 0.7 (females) or 0.9 (males) [facility] have implemented the eGFR calculation approach that does not have a coefficient for race and that conforms to the NKF-ASN Task Force Recommendations. SCr (standardized serum creatinine) = mg/dL Stage 3a Mild to moderate loss of kidney function 59 to 45 eGFR = 142 X min(SCr/?, 1)? X max(SCr /?, 1)-1.200 X 0.9938Age X 1.012 [if female] Stage 5 Kidney failure Less than 15 eGFR (estimated glomerular filtration rate) = mL/min/1.73 m2 GFR calculated using the CKD-Epi Creatinine Equation (2020): Abbreviations/Units: ? = -0.241 (females) or -0.302 (males) Stages of Chronic Kidney Disease GFR min = indicates the minimum of SCr/? or 1 Age = years Magnesium Reviewed date:04/18/2024 07:51:19 AM Interpretation: Performing Lab: Notes/Report: [address] [address]Rjulscvjw Lvl2.01.7-2.4 mg/Lee Sterile BS Reviewed date:04/25/2024 11:56:06 AM Interpretation: Performing Lab: Notes/Report: [facility] ([facility]) [address] [place] [address] [address] [address] [address]Uqql : 1940 Patient Name: Tavo Wallis [facility] C Sterile BSSee Below For Report ORGANISM ID: 1 ANTIBIOTIC INTERPRETATION BELLA STATUS Light Growth of Pseudomonas aeruginosa isolated ANTIBIOTIC INTERPRETATION BELLA STATUS Final PA ORGANISM ORGANISM ID: 1 SUSCEPTIBILITY SUSCEPTIBILITY C Sterile BS ORGANISM ID: 1 ANTIBIOTIC INTERPRETATION BELLA STATUS Light Growth of Pseudomonas aeruginosa isolated ANTIBIOTIC INTERPRETATION BELLA STATUS Final PA ORGANISM ORGANISM ID: 1 SUSCEPTIBILITY SUSCEPTIBILITY C Sterile BSSee Below For Report ORGANISM ID: 1 ANTIBIOTIC INTERPRETATION BELLA STATUS Light Growth of Pseudomonas aeruginosa isolated ANTIBIOTIC INTERPRETATION BELLA STATUS Final PA ORGANISM ORGANISM ID: 1 SUSCEPTIBILITY SUSCEPTIBILITY C Sterile BSSee Below For Report ORGANISM ID: 1 ANTIBIOTIC INTERPRETATION BELLA STATUS Light Growth of Pseudomonas aeruginosa isolated ANTIBIOTIC INTERPRETATION BELLA STATUS Final PA ORGANISM ORGANISM ID: 1 SUSCEPTIBILITY SUSCEPTIBILITY C Sterile BSPOS Pseudomonas aeruginosa ORGANISM ID: 1 ANTIBIOTIC INTERPRETATION BELLA STATUS Light Growth of Pseudomonas aeruginosa isolated ANTIBIOTIC INTERPRETATION BELLA STATUS Final PA ORGANISM ORGANISM ID: 1 SUSCEPTIBILITY SUSCEPTIBILITY C Sterile BSCeftazidime S 4 V ORGANISM ID: 1 ANTIBIOTIC INTERPRETATION BELLA STATUS Light Growth of Pseudomonas aeruginosa isolated ANTIBIOTIC INTERPRETATION BELLA STATUS Final PA ORGANISM ORGANISM ID: 1 SUSCEPTIBILITY SUSCEPTIBILITY C Sterile BSCiprofloxacin I 1 V ORGANISM ID: 1 ANTIBIOTIC INTERPRETATION BELLA STATUS Light Growth of Pseudomonas aeruginosa isolated ANTIBIOTIC INTERPRETATION BELLA STATUS Final PA ORGANISM ORGANISM ID: 1 SUSCEPTIBILITY SUSCEPTIBILITY C Sterile BSLevofloxacin R 4 V ORGANISM ID: 1 ANTIBIOTIC INTERPRETATION BELLA STATUS Light Growth of Pseudomonas aeruginosa isolated ANTIBIOTIC INTERPRETATION BELLA STATUS Final PA ORGANISM ORGANISM ID: 1 SUSCEPTIBILITY SUSCEPTIBILITY C Sterile BSMeropenem S 1 V ORGANISM ID: 1 ANTIBIOTIC INTERPRETATION BELLA STATUS Light Growth of Pseudomonas aeruginosa isolated ANTIBIOTIC INTERPRETATION BELLA STATUS Final PA ORGANISM ORGANISM ID: 1 SUSCEPTIBILITY SUSCEPTIBILITY C Sterile BSPiperacillin/Tazobactam S 16 V ORGANISM ID: 1 ANTIBIOTIC INTERPRETATION BELLA STATUS Light Growth of Pseudomonas aeruginosa isolated ANTIBIOTIC INTERPRETATION BELLA STATUS Final PA ORGANISM ORGANISM ID: 1 SUSCEPTIBILITY SUSCEPTIBILITY C Sterile BSSee Below For Report ORGANISM ID: 1 ANTIBIOTIC INTERPRETATION BELLA STATUS Light Growth of Pseudomonas aeruginosa isolated ANTIBIOTIC INTERPRETATION BELLA STATUS Final PA ORGANISM ORGANISM ID: 1 SUSCEPTIBILITY SUSCEPTIBILITY C Sterile BSPOS Pseudomonas aeruginosa ORGANISM ID: 1 ANTIBIOTIC INTERPRETATION BELLA STATUS Light Growth of Pseudomonas aeruginosa isolated ANTIBIOTIC INTERPRETATION BELLA STATUS Final PA ORGANISM ORGANISM ID: 1 SUSCEPTIBILITY SUSCEPTIBILITY C Sterile BSCefepime S V ORGANISM ID: 1 ANTIBIOTIC INTERPRETATION BELLA STATUS Light Growth of Pseudomonas aeruginosa isolated ANTIBIOTIC INTERPRETATION BELLA STATUS Final PA ORGANISM ORGANISM ID: 1 SUSCEPTIBILITY SUSCEPTIBILITY Sodium Reviewed date:04/18/2024 07:51:19 AM Interpretation: Performing Lab: Notes/Report: [address] [address]Remuxn Gyl030852-299 mmol/LC KG Reviewed date:04/25/2024 11:56:06 AM Interpretation: Performing Lab: Notes/Report: [address], [place] [address]Bohb Patient Name: Tavo Wallis [facility] : 1940 C ANASee Below For Report Final No anaerobic growth after 72 hrs. CBC w/ Diff Reviewed date:04/18/2024 07:51:19 AM Interpretation: Performing Lab: Notes/Report: [address] [address]LVJ3.64.5-11.0 x10*3/mcLRBC2.844.30-5.80 x10*6/mcLHgb9.013.5- 17.5 g/dLHct26.441.0-53.0 %MCV93.080.0-100.0 fLMCH31.827.0-35.0 swJDAG63.231.0- 37.0 %Cxsxufhu390916-016 x10*3/tzOUPG19.711.6-14.8 %Mean Platelet Volume6.56.7- 10.6 fLDiff Auto Reviewed date:04/18/2024 07:51:19 AM Interpretation: Performing Lab: Notes/Report: [address], [place] [address]Tojudw Auto54.947.2-70.8 %Lymph Auto28.727.2-40.8 %[place] Auto9.7 4.7-13.9 %Eos Auto5.40.0-6.1 %Basophil Auto1.30.0-1.2 %Neutro Absolute3.11.8-7.7 x10*3/mcLLymph Absolute1.61.0-4.8 x10*3/mcLMono Absolute0.50.3-1.1 x10*3/mcLEos Absolute0.30.0-0.4 x10*3/mcLBaso Absolute0.10.0-0.2 x10*3/mcLHgb Reviewed date:04/18/2024 07:51:19 AM Interpretation: Performing Lab: Notes/Report: [address] [address]Gnh8.113.5-17.5 g/dLHct27.241.0-53.0 %.eGFR Reviewed date:04/18/2024 11:33:44 AM Interpretation: Performing Lab: Notes/Report: [address] [address]Jtmfvmuxy GFR48>=60 mL/min/1.73m? Age = years [facility] have implemented the eGFR calculation approach that does not have a coefficient for race and that conforms to the NKF-ASN Task Force Recommendations. eGFR = 142 X min(SCr/?, 1)? X max(SCr /?, 1)-1.200 X 0.9938Age X 1.012 [if female] GFR calculated using the CKD-Epi Creatinine Equation (2020): Abbreviations/Units: Stage 4 Severe loss of kidney function 29 to 15 max = indicates the maximum of SCr/? or 1 Stages of Chronic Kidney Disease GFR Stage 3a Mild to moderate loss of kidney function 59 to 45 eGFR (estimated glomerular filtration rate) = mL/min/1.73 m2 Stage 3b Moderate to severe loss of kidney function 44 to 33 ? = 0.7 (females) or 0.9 (males) SCr (standardized serum creatinine) = mg/dL min = indicates the minimum of SCr/? or 1 ? = -0.241 (females) or -0.302 (males) Stage 5 Kidney failure Less than 15 Magnesium Reviewed date:04/18/2024 11:33:44 AM Interpretation: Performing Lab: Notes/Report: [address] [address]Vqvsnvbhg Lvl1.81.7-2.4 mg/dLCRP Reviewed date:04/18/2024 11:33:44 AM Interpretation: Performing Lab: Notes/Report: [address] [address]IUS27.600.00-0.75 mg/dL CARDIAC patients with elevated CRP are POTENTIALLY at a CRP measurement is useful for assessment of non-specific sensitive MARKER of ACUTE INFLAMMATION including CARDIAC RISK ASSESSMENT. HIGHER RISK OF FUTURE CARDIAC EVENTS. INFLAMMATORY RESPONSE to infection or injury AND is a Basic Metabolic Profile Reviewed date:04/18/2024 11:33:44 AM Interpretation: Performing Lab: Notes/Report: [address] [address]Agcvmm Sxw600141-611 mmol/LPotassium Lvl3.93.4-4.8 mmol/L Wpfkhgce6046-242 mmol/FIF44036-68 mmol/LAnion Esw10-73Jarfrgs Sql0089-50 mg/dL RUQ195-53 mg/dLCreatinine Lvl1.450.61-1.24 mg/dLBUN Crea Ratio13.110.0-20.0 Calcium Lvl8.38.5-10.3 mg/dLCBC w/ Diff Reviewed date:04/18/2024 11:33:44 AM Interpretation: Performing Lab: Notes/Report: [address] [address]BYB6.54.5-11.0 x10*3/mcLRBC2.904.30-5.80 x10*6/mcLHgb8.913.5- 17.5 g/dLHct26.841.0-53.0 %MCV92.680.0-100.0 fLMCH30.627.0-35.0 saUAHL82.131.0- 37.0 %Iggxlhtb596745-793 x10*3/thKEYZ07.111.6-14.8 %Mean Platelet Volume6.96.7- 10.6 fLDiff Auto Reviewed date:04/18/2024 11:33:44 AM Interpretation: Performing Lab: Notes/Report: [address] [address]Toprwx Auto53.747.2-70.8 %Lymph Auto32.027.2-40.8 %[place] Auto9.7 4.7-13.9 %Eos Auto4.00.0-6.1 %Basophil Auto0.60.0-1.2 %Neutro Absolute4.51.8-7.7 x10*3/mcLLymph Absolute2.71.0-4.8 x10*3/mcLMono Absolute0.80.3-1.1 x10*3/mcLEos Absolute0.30.0-0.4 x10*3/mcLBaso Absolute0.10.0-0.2 x10*3/mcLESR Reviewed date:04/18/2024 11:33:44 AM Interpretation: Performing Lab: Notes/Report: [address], [place] [address]Pxl Xapt813-33 mm/hrRespiratory Pathogens Panel Reviewed date:04/20/2024 08:42:56 AM Interpretation: Performing Lab: Notes/Report: [address], [place] [address]Vqjsbckxy ANot DetectedNot DetectedInfluenza A/H1Not Detected Not DetectedInfluenza [...] pertussisNot Detected Not DetectedBordatella holmesiiNot DetectedNot Detected Results from the MPSTORigene Respiratory Pathogens Panel should be interpreted with [...] Influenza A and / or Influenza B. Testing was performed using nucleic acid amplification including Influenza A, Influenza A/H1, Influenza A/H3, Influenza B, RSV A, RSV B, Adenovirus, Human Metapneumovirus, Parainfluenza 1, 2, 3, 4, Rhinovirus, Bordatella parapertussis / bronchiseptica, Bordatella holmesii, Bordatella pertussis. Magnesium Reviewed date:04/20/2024 08:42:56 AM Interpretation: Performing Lab: Notes/Report: [address] [address]Qcskzuvbe Lvl2.11.7-2.4 mg/dL.eGFR Reviewed date:04/20/2024 08:42:56 AM Interpretation: Performing Lab: Notes/Report: [address] [address]Gnzqmnsdz GFR52>=60 mL/min/1.73m? Abbreviations/Units: Stage 3b Moderate to severe loss of kidney function 44 to 33 max = indicates the maximum of SCr/? or 1 Stages of Chronic Kidney Disease GFR ? = 0.7 (females) or 0.9 (males) eGFR = 142 X min(SCr/?, 1)? X max(SCr /?, 1)-1.200 X 0.9938Age X 1.012 [if female] Stage 5 Kidney failure Less than 15 min = indicates the minimum of SCr/? or 1 eGFR (estimated glomerular filtration rate) = mL/min/1.73 m2 SCr (standardized serum creatinine) = mg/dL [facility] have implemented the eGFR calculation approach that does not have a coefficient for race and that conforms to the NKF-ASN Task Force Recommendations. GFR calculated using the CKD-Epi Creatinine Equation (2020): Stage 4 Severe loss of kidney function 29 to 15 Age = years Stage 3a Mild to moderate loss of kidney function 59 to 45 ? = -0.241 (females) or -0.302 (males) CBC w/ Diff Reviewed date:04/20/2024 08:42:56 AM Interpretation: Performing Lab: Notes/Report: [address] [address]AIR1.94.5-11.0 x10*3/mcLRBC2.964.30-5.80 x10*6/mcLHgb9.313.5- 17.5 g/dLHct27.441.0-53.0 %MCV92.480.0-100.0 fLMCH31.427.0-35.0 jrTHUT43.031.0- 37.0 %Niyuxiay532897-942 x10*3/yhRLXR62.111.6-14.8 %Mean Platelet Volume7.26.7- 10.6 fLXR Chest 1 View Reviewed date:04/18/2024 11:33:44 AM Interpretation: Performing Lab: Notes/Report: Patient Name: Tavo Wallis CLINICAL HISTORY: Worsening dyspnea.Basic Metabolic Profile Reviewed date:04/20/2024 08:42:56 AM Interpretation: Performing Lab: Notes/Report: [address] [address]Fyqfin [id number] mmol/LPotassium Lvl3.83.4-4.8 mmol/L Ibqtfzpf1354-388 mmol/OXD95586-09 mmol/LAnion Bnd99-68Gjxgzrr Kel4393-65 mg/dL IXJ682-57 mg/dLCreatinine Lvl1.370.61-1.24 mg/dLBUN Crea Ratio14.610.0-20.0 Calcium Lvl8.58.5-10.3 mg/dLDiff Auto Reviewed date:04/20/2024 08:42:56 AM Interpretation: Performing Lab: Notes/Report: [address] [address]Zqsuav Auto50.147.2-70.8 %Lymph Auto32.327.2-40.8 %[place] Auto 11.24.7-13.9 %Eos Auto5.90.0-6.1 %Basophil Auto0.50.0-1.2 %Neutro Absolute3.5 1.8-7.7 x10*3/mcLLymph Absolute2.21.0-4.8 x10*3/mcLMono Absolute0.80.3-1.1 x10*3/mcLEos Absolute0.40.0-0.4 x10*3/mcLBaso Absolute0.00.0-0.2 x10*3/mcL.eGFR Reviewed date:04/20/2024 08:42:56 AM Interpretation: Performing Lab: Notes/Report: [address] [address]Mzecthedx GFR57>=60 mL/min/1.73m? eGFR = 142 X min(SCr/?, 1)? X max(SCr /?, 1)-1.200 X 0.9938Age X 1.012 [if female] SCr (standardized serum creatinine) = mg/dL Abbreviations/Units: Stage 3b Moderate to severe loss of kidney function 44 to 33 Stages of Chronic Kidney Disease GFR eGFR (estimated glomerular filtration rate) = mL/min/1.73 m2 Stage 5 Kidney failure Less than 15 max = indicates the maximum of SCr/? or 1 ? = -0.241 (females) or -0.302 (males) [facility] have implemented the eGFR calculation approach that does not have a coefficient for race and that conforms to the NKF-ASN Task Force Recommendations. ? = 0.7 (females) or 0.9 (males) Age = years GFR calculated using the CKD-Epi Creatinine Equation (2020): min = indicates the minimum of SCr/? or 1 Stage 4 Severe loss of kidney function 29 to 15 Stage 3a Mild to moderate loss of kidney function 59 to 45 CBC w/ Diff Reviewed date:04/20/2024 08:42:56 AM Interpretation: Performing Lab: Notes/Report: [address] [address]QMX3.04.5-11.0 x10*3/mcLRBC2.934.30-5.80 x10*6/mcLHgb9.113.5- 17.5 g/dLHct27.241.0-53.0 %MCV92.980.0-100.0 fLMCH31.127.0-35.0 tgCQLH70.531.0- 37.0 %Agnsrxaf382845-110 x10*3/pyYPNZ65.611.6-14.8 %Mean Platelet Volume7.06.7- 10.6 fLBasic Metabolic Profile Reviewed date:04/20/2024 08:42:56 AM Interpretation: Performing Lab: Notes/Report: [address] [address]Tpjxkl Yiy835641-136 mmol/LPotassium Lvl3.73.4-4.8 mmol/L Xrxeyung9808-958 mmol/QNG37372-77 mmol/LAnion Gai58-83Jcypdsy Myk8514-88 mg/dL JGM963-86 mg/dLCreatinine Lvl1.250.61-1.24 mg/dLBUN Crea Ratio15.210.0-20.0 Calcium Lvl8.68.5-10.3 mg/dLDiff Auto Reviewed date:04/20/2024 08:42:56 AM Interpretation: Performing Lab: Notes/Report: [address] [address]Dptstc Auto49.447.2-70.8 %Lymph Auto32.327.2-40.8 %[place] Auto9.0 4.7-13.9 %Eos Auto8.70.0-6.1 %Basophil Auto0.60.0-1.2 %Neutro Absolute3.01.8-7.7 x10*3/mcLLymph Absolute1.91.0-4.8 x10*3/mcLMono Absolute0.50.3-1.1 x10*3/mcLEos Absolute0.50.0-0.4 x10*3/mcLBaso Absolute0.00.0-0.2 x10*3/mcLMagnesium Reviewed date:04/20/2024 08:42:56 AM Interpretation: Performing Lab: Notes/Report: [address] [address]Hcvxocpja Lvl2.11.7-2.4 mg/dL Reason For Referral Reason NO AUTH REQ...............................02/21/24.................................MCR/A NTHEM L2-5 DECOMPRESSION AND NON INSTRUMENTED FUSION 80085, 02653 x2, 44316, 26929 x3, 87014 Diagnos is 1 Lumbar stenosis with neurogenic claudica tion (M48.062) Diagnos is 2 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) Darci Balderas [facility] Any austin Provide r First Name Randi austin Provide r Last Name [facility] Referri geovanna Provide r Special ity Orthopedic Surgery Referre d Organiz ation [facility] Outpatient Referre d Address [address], [place],[id number],[place] Procedu re 1 Arthrodesis, posterior lumbar, 1 lumbar level (69921) Procedu re 2 Arthrodesis single, each addn'l level, p osteriolateral technique (05003) Procedu re 3 Laminectomy, facetectomy and foraminotom y single lumbar (52139) Procedu re 4 Laminectomy, facetectomy and foraminotom y additional vertebral segment (71340) Procedu re 5 Autograft for spine surgery only; local obtained from same incision (43697) General Notes Ania Gilmore 01/19/2024 11:12:49 AM >, Shobha Stanton 01/19/2024 12:15:50 PM > MEDICARE PARTS A & B ACTIVE AND EFFECTIVE 07/05/06 PER [employer]AILITY WITH ANTHEM SECONDARY. NO AUTHORIZATION REQUIRED. NONE OF THE CODES PROVIDED ARE ON THE MEDICARE INPATIENT LIST. CAN YOU PLEASE SWITCH TO OUTPATIENT AND SEND BACK SO I CAN FAX OVER TO [facility]?, Ania Gilmore 01/24/2024 03:14:26 PM >CHANGED TO OUTPATIENT, Shobha Stanton 01/24/2024 03:15:38 PM > THANK YOU, FAXED TO [facility]. Referra l Priorit y Routine Reason BONE STIM Diagnosis 1 Anterolisthesis of l umbar spine (M43.16) Referral Organization [facility] Referring Provider First Name Randi Referring Provider Last Name [facility] Referring Provider Speciality Orthopedic Surgery Referred Organization [facility] Referred Address [address] [place], [place],[address],[place] General Notes Viridiana Mehta 02/10/2024 11:35:01 AM > ALL CLINICAL SENT TO [facility] FOR BONE STIM Referral Priority Routine Reason NO AUTH REQ......... .............................NOT SCHEDULED.................................MCR/STEPH MRI LUMBAR TO BE DONE AT [facility] Diagnosis 1 Aftercare following surgery of the musculoskeletal system (Z47.89) Referral Organization [facility] Referring Provider First Name Randi Referring Provider Last Name [facility] Referring Provider Speciality Orthopedic Surgery Referred Organization [facility] Scheduling Referred Address [address] [place] [place], [place],[address],[place] Procedure 1 MRI Lumbar Spine w/o Dye (27000) General Notes Ania Gilmore 2024 10:07:48 AM >, Shobha Stanton 03/23/2024 10:13:34 AM > MEDICARE PARTS A & B ACTIVE AND EFFECTIVE 07/05/06 PER [employer]AILITY WITH ANTHEM SECONDARY. NO AUTHORIZATION REQUIRED. FAXED TO FACILITY., Yoli Cruz 03/26/2024 11:58:10 AM > order faxed Referral Priority Routine Reason NO AUTH REQ..............................04/13/24................................DEB/LUCIUS M LUMBAR I & [place] [address] [place] [address] [place] [address] no dictation available Diagnos is 1 Wound dehiscence (T81.30XA) Referra l [facility] Referri ng Provide r First Name Tabathamerna austin Provide r Last Name [place] Referjovanni austin Provide r Special ity Orthopedic Surgery Referre d [facility] Inpatient Referre d Address [address], [place],[address],[place] Procedu re 1 Incision and drainage of hematoma seroma or fluid collection (82311) Procedu re 2 Incision and drainage complex po wound i nfection (44876) Procedu re 3 Secondary closure surgical wound or dehi scence, ext or comp (35733) General Notes Ania Gilmore 04/12/2024 02:02:58 PM >, Ania Gilmore 04/12/2024 02:41:05 PM >PATIENT WAS SEEN IN THE OFFICE 03/23, MRI ORDERED AND BEING SEEN IN THE OFFICE TOMORROW, Shobha Stanton 04/12/2024 02:45:29 PM > MEDICARE PARTS A & B ACTIVE AND EFFECTIVE 07/05/06 PER [employer]AILITY WITH [employer]THEM SECONDARY. NO AUTHORIZATION REQUIRED. FAXED TO [facility]., Mando Ania 04/16/2024 09:09:49 AM >SURGERY WAS CANCELLED. PATIENT ADMITTED FOR OTHER ISSUES AND THEN TRANSFERRED TO [facility] AND WILL BE DONE TOMORROW MORNING, Shobha Stanton 04/16/2024 09:14:49 AM > NOTED, THANK YOU. Referra l Priorit y Stat Medications Medication SIG (Take, Route, Frequency, Duration) Notes Start Date End Date Status Oxycodone Activepotassium chlorideActivelevothyroxineActivemagnesium oxideActivebumetanide ActiveeszopicloneActiveatorvastatinActiveallopurinolActiveEliquisActivetraZODone ActiveFlexeril 10 mg1 tab(s) orally 3 times a day5Activepramipexole ActiveFlexeril 10 mg1 tab(s) orally 3 times a day prn muscle wdhyzz7504/22/2023 Active Social History Tobacco Use: Social History [...] Problem Status W/U Status Risk Notes Problem History of arthrodesis (893635683) Arthro desis status (Z98.1) ActiveconfirmedProblemDehiscence of surgical wound (12793573)Disruption of external operation (surgical) wound, 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, initial encounter (T81.31XA)ActiveconfirmedProblemPostoperative seroma (929712722)Postprocedural seroma of skin and subcutaneous tissue following other procedure (L76.34)Active confirmedProblemArachnoiditis (4683078)Arachnoiditis (G03.9)Activeconfirmed ProblemSpinal stenosis of lumbar region (10137015)Spinal stenosis, lumbar region without neurogenic claudication (M48.061)ActiveconfirmedProblemNeurogenic claudication (990700531)Lumbar stenosis with neurogenic claudication (M48.062) ActiveconfirmedProblemLeft foot drop (finding) (868168406001176)Acquired left foot drop (M21.372)ActiveconfirmedProblemEncounter for other orthopedic aftercare (Z47.89)ActiveconfirmedProblemAcquired spondylolisthesis (345138807) Anterolisthesis of lumbar spine (M43.16)ActiveconfirmedProblemBilateral sacral insufficiency fracture (disorder) (88170935794667168)Sacral insufficiency fracture with routine healing, subsequent encounter (M84.48XD)Activeconfirmed ProblemOther intervertebral disc degeneration, lumbar region with discogenic back pain and lower extremitypain (M51.362)Activeconfirmed Encounters Encounter Location Date Provider Diagnosis [facility] [address] [place] [address] 02/17/2024 Gustabo Chatoo Anterolisthesis of lumbar spine M43.16 ; Lumbar stenosis with neurogenic claudication M48.062 and Other intervertebral disc degeneration, lumbar region with discogenic back pain and lower extremity pain M51.362 [facility] Outpatient [address], [place] [id number] 02/21/2024 Selvon [place] Spinal stenosis, lumbar region without neurogenic claudication M48.061 ; Other intervertebral disc degeneration, lumbar region with discogenic back pain and lower extremity pain M51.362 ; Anterolisthesis of lumbar spine M43.16 and Acquired left foot drop M21.372 [facility] Office [address] [place], [place] [address] [place] [address] [facility] for other orthopedic aftercare Z47.89 and Arthrodesis status Z98.1 [facility] [address] [place], [place] [address] [place] [address] 03/23/2024 [facility] Disruption of external operation (surgical) wound, 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, initial encounter T81.31XA ; Postprocedural seroma of skin and subcutaneous tissue following other procedure L76.34 ; Encounter for other orthopedic aftercare Z47.89 and Arthrodesis status Z98.1 [facility] [address] [place] [address] 04/13/2024 Gustabo May Wound dehiscence T81.30XA [facility] [address] [place], [place] [id number] 04/17/2024 Selvon [place] 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 of 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 al operation (surgical) wound, 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, initial encounter T81.31XA [facility] [address] [place] [address] [place] [address] [facility] Encounter for other orthopedic aftercare Z47.89 ; Disruption of external operation (surgical) wound, 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, initial encounter T81.31XA and Arthrodesis status Z98.1 [facility] [facility] [address] [place] [address] 01/25/2024 Seljacinton [place] Anterolisthesis of lumbar spine M43.16 and Acquired left foot drop M21.372 [facility] [address] [place] [address] 02/14/2024 Randi Burris [facility] [place] [address] [place] [address]/ Randi Mancini [facility] [address] [place] [address]/Selvon [place] Assessments Encounter Date Diagnosis (ICD Code) [...] - Z98.1)1. 2 weeks s/p L2-5 revision decompression/gnttvp9303/09/2024 Encounter for other orthopedic aftercare (ICD-10 - Z47.89)1. 2 weeks s/p L2-5 revision decompression/sbimiv2603/23/2024Disruption of external operation (surgical) wound, 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, initial encounter (ICD-10 - T81.31XA)1. 4 weeks s/p L2-5 revision decompression and zmctjh9203/23/2024 Postprocedural seroma of skin and subcutaneous tissue following other procedure (ICD-10 - L76.34)1. 4 weeks s/p L2-5 revision decompression and yfbsdh3304/13/2024 Wound dehiscence (ICD-10 - T81.30XA)1. 6-week status post lumbar decompression and noninstrumented fusion with postoperative fluid collection, wound drainage and wound gwmerplywd03/11/2025Disruption of external operation (surgical) wound, 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, initial encounter (ICD-10 - T81.31XA)05/11/2024 Disruption of external operation (surgical) wound, 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, initial encounter (ICD-10 - T81.31XA) 1. 3 weeks s/p I&D with seroma evacuation 2. 3 months s/p L2-5 decompression and noninstrumented fusion 05/11/2024Encounter for other orthopedic aftercare (ICD-10 - Z47.89) 1. 3 weeks s/p I&D with seroma evacuation 2. 3 months s/p L2-5 decompression and noninstrumented fusion 05/11/2024rthrodesis status (ICD-10 - Z98.1) 1. 3 weeks s/p I&D with seroma evacuation 2. 3 months s/p L2-5 decompression and noninstrumented fusion 03/23/2024Encounter for other orthopedic aftercare (ICD-10 - Z47.89)1. 4 weeks s/p L2-5 revision decompression and uacaok124Anterolisthesis of lumbar spine (ICD-10 - M43.16)02/17/2024Other intervertebral disc degeneration, lumbar region with discogenic back pain and lower extremitypain (ICD-10 - M51.362) 4Acquired left foot drop (ICD-10 - M21.372)4Acquired left foot drop (ICD-10 - M21.372)5Arthrodesis status (ICD-10 - Z98.1)1. 4 weeks s/p L2-5 revision decompression and rijlqz5602/17/2024OtherA lumbosacral corset brace has been ordered today for the patient to begin immediate use for pain re lief and support. The patient will use this brace daily for support and immobilization of the lumbar spine. The brace is necessary both prior to surgery and upon returning home from surgery to limit motion of the spine to help facilitate healing in the initial post-op period.03/09/2024Other Plan established by Dr. aMn. Patient evaluated by myself and Dr. Man [...] gave him an order for this for theS. We will see him back in 2 [...] regards, 1. 2 weeks s/p L2-5 revision decompression/inpgmr4603/23/2024Other Plan established by Dr. Man. Patient evaluated [...] 4 weeks s/p L2-5 revision decompression and jhmmoh9304/13/2024Other Plan established by Dr. Man. At this [...] postoperative fluid collection, wound drainage and wound hgkhiytyqu91/07/2025 Other Overall patient is starting to improve. Infectious disease is going to extend his meropenem IV for 1 more week and then reassess as there is a very small area of dehiscence still with some drainage. Patient will continue with his LSO brace and physical therapy at the [facility]. I did refill his Flexeril for nighttime [...] Date Lumbar spine, 4v flex ext - 38819 2023 Lumbar spine 2v ap and lat - 86515 05/11 Surgery Scheduling 01/25/2024 Surgery Scheduling 04/12/2024 DME - Lumbar Support, Surgical OTS 02/16 GRD-Compression stockings:thigh-high OTS 03/09/2024 BONE STIMULATOR 02/17/2024 MRI : Lumbosacral Spine W/O Contrast - 7 214703/23/2024 Future Test Test Name Order Date Chest 2 views - 18446 01/25/2024 CBC 01/25/2024 Type and Screen Blood Type 01/25/2024 PT/PTT 01/25/2024 BMP 01/25/2024 MRSA (Bilateral Nares) PCR 01/25/2024 EKG 01/25/2024 Insurance Providers Payer Name Payer Address Payer Phone Subscriber Number Group Number Insured Name Patient Relationship to Insured Coverage Start Date Coverage End [place] [address] [place] [address] [id number] DAMION WALLIS JRelf - patient is the insuredAnthemPO [address] [place] [id number] JR, WILLIAMSelf - patient is the insured Medical (General) History Medical History History ICD Code High Blood Pressure Abnormal Heart RhythmThyroid diseaseStomach ulcersCancer spineKidney stones OsteoarthritisRheumatoid arthritisBleeding DisordersSurgical History Surgery Date(Month/Year) Rotator cuff surgery
--- OUTSIDE RECORDS SUMMARY | 2025-01-16 14:56 | XMS_ITS | CCD ---
Author Organization [facility] Care Team Providers Care Vice President Process Name Role Phone Opal Ga Unavailable Unavailable Unavailable Opal Ga Unavailable DO Opal Ga Primary Care Provider [phone] AKUA Rodarte Attending Provider [phone] DO Opal Ga Attending Provider DO Opal Ga Primary Care Provider DO Opal Ga Attending Provider MD Frankie Paiz Emergency Provider DO Dharmesh Zavala Admit Provider DO Dharmesh Zavala Attending Provider Shy Mcdonough Other Provider Unavailable DO Meme De La Torre Other Provider MD Mani Dickens Other Provider DO Matheus Rzivi Other Provider [phone] Antonia ANP- Hoa Other Provider DO Vikas Mane Other Provider RIKY Degroot Other Provider [phone] MD Raji Ennis Attending Provider MD Frankie Reynolds Other Provider RIKY Mix Attending Provider DO Opal Ga Attending Provider Kuns, DO Opal Primary Care Provider [phone] Kuns, DO Opal Myers Attending Provider Kuns, Dr. Opal Parker Primary Care Unavaila cb Gomez, Ms. Enedelia Gusmanshelia San Attending Rula Gomez, Dane Enedelia Gusmanshelia San Referring Unavai noe Ga, Dr. Opal Parker Primary Care Unavaila cb Gomez, Ms. Enedelia Gusmanshelia San Attending Rula Gomez, Ms. Enedelia Gusmanshelia San Referring Unavai lable Daily, Dr. Opal Parker Primary Care Unavaila ble Urena, Marv Referring Unavailable Kunmyranda, Dr. Opal Parker Primary Care Unavaila ble Urena, Marv Attending Unavailable Kunmyranda, Dr. Opal Parker Primary Care Unavaila ble Francisco Javier, Tavo Attending Unavailable Francisco Javier, Tavo Referring Unavailable Kunmyranda, Dr. Opal Parker Primary Care Unavaila cb Mcintyre, Tavo Attending Unavailable Francisco Javier, Tavo Referring Unavailable Kunmyranda, Dr. Opal Parker Primary Care Unavaila ble Urena, Marv Attending Unavailable Urena, Marv Attending Unavailable Kunmyranda, Dr. Opal Parker Primary Care Unavaila ble Urena, Marv Attending Unavailable Kunmyranda, Dr. Opal Parker Primary Care Unavaila ble BRAMBILA ., DR TROY Whitmore Admitting Unavailable BRAMBILA ., DR TROY Whitmore Consulting Unavailable BRAMBILA ., DR TROY Whitmore Attending Unavailable DAILY, DR WIGGINS Primary Care Unavailable МАРИНА ., DR TROY Whitmore Admitting Unavailable BRAMBILA ., DR TROY Whitmore Attending Unavailable EDUARDO .NATACHA Consulting Unavailable DAILY, DR WHITTINGTON Primary Care Unavailable BRAMBILA ., DR TROY Whitmore Admitting Unavailable BRAMBILA ., DR TROY Whitmore Consulting Unavailable BRAMBILA ., DR TROY Whitmore Attending Unavailable DAILY, DR WHITTINGTON Primary Care Unavailable EDUARDO .NATACHA Consulting Unavailable DAILY, DR WHITTINGTON Consulting Unavailable BRAMBILA ., DR TROY Whitmore Admitting Unavailable BRAMBILA ., DR TROY Whitmore Consulting Unavailable BRAMBILA ., DR TROY Whitmore Attending Unavailable KUNMyranda, DR WHITTINGTON Primary Care Unavailable DAILY, DR WHITTINGTON Consulting Unavailable MADISON .DOMINIC Attending Unavailable MADISON .DOMINIC Admitting Unavailable DAILY, DR WHITTINGTON Primary Care Unavailable KUNS, DR WHITTINGTON Primary Care Unavailable BRAMBILA ., DR TROY Whitmore Admitting Unavailable BRAMBILA ., DR TROY Whitmore Attending Unavailable RODARTE ., NATACHA Consulting Unavailable KUNS, DR WHITTINGTON Primary Care Unavailable BRAMBILA ., DR TROY Whitmore Attending Unavailable BRAMBILA ., DR TROY Whitmore Admitting Unavailable BRAMBILA ., DR TROY Whitmore Admitting Unavailable KUNS, DR WHITTINGTON Primary Care Unavailable BRAMBILA ., DR TROY Whitmore Attending Unavailable RODARTE ., NATACHA Consulting Unavailable KUNS, DR WHITTINGTON Consulting Unavailable BRAMBILA ., DR TROY Whitmore Admitting Unavailable BRAMBILA ., DR TROY Whitmore Attending Unavailable RODARTE ., NATACHA Consulting Unavailable KUNS, DR WHITTINGTON Primary Care Unavailable TEQUILA, EDILMA [...] vailable LAKSHMIPATHY ., NARENDRANATH Consulting Nichelle vailable KUNMyranda, DR WHITTINGTON Primary Care Unavailable LAKSHMIPATHY ., YANNI Attending Nichelle vailable HALKER ., DOMINIC Consulting Unavailable BRAMBILA ., DR TROY Whitmore Admitting Unavailable BRAMBILA ., DR TROY Whitmore Attending Unavailable RODARTE ., NATACHA Consulting Unavailable DAILY, DR WIGGINS Primary Care Unavailable Tjs, DO Wiggins Primary Care Provider [phone] Tjs, DO Wiggins Attending Provider Kuns Opal HARGROVE Primary Care Provider [phone] Kuns, DO Opal Primary Care Provider [phone] DO Bhupinder Mcintyre Attending Provider Kuns, DO Wiggins Attending Provider [phone] Kuns Opal HARGROVE Primary Care Provider [phone] Opal Ga DO Primary Care Provider [phone] JUNE, RANDI F Admitting Unavailable JUNE, MARCELLUSN F Attending Unavailable OPAL GA Primary Care Unavailable ORIANA, OLUREMI A Consulting Unavailable Kuns DO, Opal Primary Care Provider [phone] Tjs DOOpal Attending Provider Bunting DO, Sandip R Attending Provider Marcos Martin DO Emergency Provider Amy TIDWELL, Mitchell Admit Provider Mitchell Reyes MD Attending Provider Michele Knight MD Attending Provider Opal Ga DO Primary Care Provider [phone] Randi Batista MD Attending Provider Bunting DO, Sandip Attending Provider [phone] Unavailable Primary Care Provider Unavailabl e Bunting DO, Sandip R Attending Provider Veronica HARGROVE, Marcos Fink Emergency Provider Daily DO, Opal Primary Care Provider Amy TIDWELL, Mitchell Admit Provider [phone] Michele Knight MD Attending Provider Randi Batista MD Attending Provider [phone] Bunting DO, Sandip Attending Provider Bunting DO, Sandip R Attending Provider Veronica HARGROVE, Marcos Fink Emergency Provider [phone] Daily DOOpal Primary Care Provider Mitchell Reyes MD Admit Provider Michele Knight MD Attending Provider [phone] Randi Batista MD Attending Provider Bunting DO, Sandip Attending Provider Bunting DO, Sandip R Attending Provider Tjs , Opal Primary Care Provider Tjs Opal HARGROVE Primary Care Provider [phone] Unavailable Primary Care Provider Unavailleigh ann e Kiera COTTRELL OPERATOR, Melvi M Emergency Provider Ramona DO, Sandip R Primary Care Provider Julian TIDWELL, Mario Admit Provider Julian TIDWELL, Mario Attending Provider [phone] Talisha TIDWELL, Keith Other Provider Shane TIDWELL, Vinay Myers Other Provider Trisha Hebert MD Other Provider Walter TIDWELL, Ronald Urbina Other Provider Lester TIDWELL, Keith Fink Other Provider Marvin TIDWELL, Albert Whitmore Other Provider Negro TIDWELL, Bayron Other Provider [phone] Laron SENIOR ACCOUNTING MANAGER-C, Nkechi Burnette Other Provider [phone] [facility] Other Provider [phone] Gail TIDWELL, Frankie Other Provider Dimitry TIDWELL, Stephanie Attending Provider Trisha Hebert Attending Unavailable Ambar Summers Attending Unavailable BAYRON TOM Attending Unavail able BAYRON TOM Referring Unavail able Nkechi Larry Attending Unavailable Ambar Summers Attending Unavailable yTe Pompa Attending Unavailable [facility] COTTRELL OPERATOR-FIELD SERVICE SUPERVISOR, Tamar Asencio Attending [facility] Tye Pompa Attending Unavailable [facility] COTTRELL OPERATOR-FIELD SERVICE SUPERVISOR, Tamar Asencio Attending [facility] COTTRELL OPERATOR-FIELD SERVICE SUPERVISOR, Tamar Asencio Attending U navailable [facility] COTTRELL OPERATOR-FIELD SERVICE SUPERVISOR, Tamar Asencio Attending U navailable Francisco Javier HARGROVE, Tavo Be Primary Care Nichellevai noe Price MD, Diana Hubbard Attending Unavailable Dee TIDWELL, Diana Hubbard Attending Unavailable Moises TIDWELL, Crystal Byrd Attending Unavai labfrederic Mcintyre DO, Tavo Be Primary Care Unavai labfrederic Dallas DO, Frankie Hernandez Consulting Unavaila cb De Leon MD, Crystal Byrd Admitting Unavai noe De Leon MD, Crystal Byrd Consulting Unavai labfrederic Pompa, Tye Barrera Consulting Unavailable Lalo LECHUGA, Gustabo Sharpe Consulting Unavai lable [facility] TIDWELL, Randi Mesa Consulting Unavailabl e Aletha, Tye Barrera Attending Unavailable Francisco Javier DO, Tavo Be Primary Care Unavai labfrederic [facility], Sandip R Attending Provider Melvi Qureshi APRN Emergency Provider [facility], Sandip R Primary Care Provider [phone] Julian TIDWELL, Mario Admit Provider Keith Woodall MD Other Provider Vinay Lynn MD Other Provider [phone] Trisha Hebert MD Other Provider Walter TIDWELL, Ronald Urbina Other Provider Keith Batista MD Other Provider [phone] Albert Wong MD Other Provider Negro TIDWELL, Bayron Other Provider Laron ALLEN-C, Nkechi Burnette Other Provider Jason [facility], Ella Other Provider [phone] Frankie Reynolds MD Other Provider Stephanie Moraes MD Attending Provider [phone] Julian TIDWELL, Mario Other Provider Itzkowitz DO, Bryce Other Provider Frankie Reynolds MD Attending Provider Opal Ga DO Primary Care Provider Opal Ga DO Attending Provider [phone] NO FAMILY, PHYSICIAN Primary Care Provider Unava ilable Bunting DO, Sandip R Attending Provider Keely Montoya APRN Attending Provider Bunting DO, Sandip R Attending Provider Bhupinder Mcintyre DO Attending Provider [phone] Bunting DO, Sandip R Attending Provider [phone] Bunting DO, Sandip R Attending Provider [phone] Julian TIDWELL, Mario Other Provider Itzkofelice DO, Bryce Other Provider Frankie Reynolds MD Attending Provider Opal Ga DO Primary Care Provider [phone] Opal Ga DO Attending Provider NO FAMILY, PHYSICIAN Primary Care Provider Unava ilable Keely Montoya APRN Attending Provider Bhupinder Mcintyre DO Attending Provider [phone] Cedric LECHUGA, Terence Roe Emergency Provider Frankie Johnson DO Admit Provider [phone] Frankie Johnson DO Attending Provider Ramona DO, Sandip R Attending Provider Franck Gagnon DO Other Provider Jovany Stovall MD Attending Provider Jovany Stovall MD Other Provider Frankie Johnson DO Attending Provider TAVO MCINTYRE Attending Unavailable OPAL AG Primary Care Unavailable Frankie Reynolds MD Attending Provider Terence Steele PA-C Emergency Provider Frankie Johnson DO Admit Provider Franck Gagnon DO Other Provider Jovany Stovall MD Attending Provider Jovany Stovall MD Other Provider Frankie Johnson DO Attending Provider [phone] Opal Ga DO Attending Provider Opal Ga DO Primary Care Provider [phone] Terence Steele PA-C Emergency Provider Frankie Johnson DO Admit Provider Franck Gagnon DO Other Provider Jovany Stovall MD Attending Provider Jovany Stovall MD Other Provider Sree Thao DO Emergency Provider Akash Mccartney MD Admit Provider Akash Mccartney MD Attending Provider Opal Ga DO Primary Care Provider Frankie Reynolds MD Attending Provider Terence Steele PA-C Emergency Provider Frankie Johnson DO Admit Provider Franck Gagnon DO Other Provider [phone] Jovany Stovall MD Attending Provider Jovany Stovall MD Other Provider Keely Montoya APRN Attending Provider Sree Thao DO Emergency Provider Akash Mccartney MD Admit Provider Michele Knight MD Attending Provider Opal Ga DO Primary Care Provider [phone] Keely Montoya APRN Attending Provider Michele Knight MD Attending Provider Niki SENIOR ACCOUNTING MANAGER-C, Cristy Attending Provider Paul , Liliana Dasilva Attending Provider [phone] [facility], Opal Primary Care Provider [phone] Niki SENIOR ACCOUNTING MANAGER-C, Cristy Attending Provider Marker DO, Liliana Dasilva Attending Provider [phone] Clarence Schroeder DO Attending Provider Sha Pepe MD Attending Provider Bunting, Sandip R Attending Unavailable Bunting, Sandip R Admitting Unavailable Michele Knight Attending Unavailable Opal Ga [facility] Care Unavailable DoameAkash cody Admitting Unavailab Pauline Murray Consulting Unavailable Pauline Chacon Consulting Unavailable Bhupinder Mcintyre Consulting Unavailable Urena, Marv Consulting Unavailable Traboulssi, Robert Consulting Unavailable Enedelia Gomez Consulting Unavailable AlvarezVerena Consulting Unavailable Renu Kraus Consulting Unavailable Bunting, Sandip R Primary Care Unavailable Mario Jordan Admitting Unavailable SemaStephanie sanders Attending Unavailable Keith Woodall Consulting Unavailable Vinay Lynn Consulting Unavailable Trisha Hebert Consulting Unavailable Ronald Watson Consulting Unavailable Keith Batista Consulting Unavailable Albert Wong Consulting Unavailable Nkjuan-AmBayron titus Consulting Unavail able Nkechi Larry Consulting Unavailable Ella Gomez Consulting Unavailable Frankie Reynolds Consulting Unavailable Bunting, Sandip R Attending Unavailable Bunting, Sandip R Admitting Unavailable Bunting, Sandip R Attending Unavailable Bunting, Sandip R Admitting Unavailable Bunting, Sandip R Attending Unavailable Bunting, Sandip R Admitting Unavailable Bunting, Sandip R Attending Unavailable Bunting, Sandip R Admitting Unavailable Bunting, Sandip R Primary Care Unavailable Bunting, Sandip Admitting Unavailable Bunting, Sandip Attending Unavailable Michele Knight Attending Unavailable T[facility] Southan Primary Care Unavailable Amy, Mitchell Admitting Unavailable Frings, Frankie Attending Unavailable Stovall, Jovany E Consulting Unavailable Kuns, Opal Primary Care Unavailable Frings, Frankie Admitting Unavailable Kuns, Opal Attending Unavailable Kuns, Opal Primary Care Unavailable Kuns, Opal Admitting Unavailable Bunting, Sandip Attending Unavailable Bunting, Sandip Admitting Unavailable Bunting, Sandip R Attending Unavailable Bunting, Sandip R Admitting Unavailable Bhupinder Mcintyre Attending Unavailable Kuns, Opal Primary Care Unavailable Bhupinder Mcintyre Admitting Unavailable StovallJovany Attending Unavailable Kuns, Opal Primary Care Unavailable Stovall, Jovany E Admitting Unavailable Turovskaya, Keely Attending Unavailable Kuns, Opal Primary Care Unavailable Turovskaya, Keely Admitting Unavailable Bunting, Sandip Admitting Unavailable Bunting, Sandip Attending Unavailable Bunting, Sandip R Attending Unavailable Bunting, Sandip R Admitting Unavailable Bunting, Sandip Admitting Unavailable Bunting, Sandip Attending Unavailable Kuns, Opal Admitting Unavailable Kuns, Opal Attending Unavailable NO FAMILY, PHYSICIAN Primary Care Unavailable Turovskaya, Keely Admitting Unavailable Turovskaya, Keely Attending Unavailable Kuns, Opal Primary Care Unavailable Bunting, Sandip R Attending Unavailable Bunting, Sandip R Admitting Unavailable Bunting, Sandip R Attending Unavailable Bunting, Sandip R Admitting Unavailable Bunting, Sandip R Attending Unavailable Bunting, Sandip R Admitting Unavailable Lester, Selvon F Attending Unavailable Lester, Selvon F Admitting Unavailable Kuns, Opal Primary Care Unavailable Marker, Liliana Dasilva Attending Unavailable Marker, Liliana Dasilva Admitting Unavailable PattersonClarence Attending Unavailable Patterson, Clarence Fink Admitting Unavailable Bunting, Sandip Admitting Unavailable Bunting, Sandip Attending Unavailable Bunting, Sandip R Attending Unavailable Bunting, Sandip R Admitting Unavailable Allergies Allergy ClassificationReported Allergen(s)Allergy TypeDate of OnsetReaction(s) Facility (20 sources)fentaNYL; Translations: [Duragesic-75 PT72]Drug Ywvpfpi94-74-3451 Dizziness, N[facility] ([facility] sources)Indomethacin; Translations: [Indocin]Drug Mkfztky92-37-5427VdsriIRKaren [place] [address] DO Work Phone: (20 sources)Penicillins; Translations: [Penicillins]Allergy to drug (finding) 00-67-1613Zhaoh, WeaknessSalem City HospitalComment on above: 10/09/24 - had a penicillin injection prior to a procedure 20-30 years ago and fell down some stairs afterward (20 sources)zolpidem; Translations: [Ambien]Drug Udquhco53-27-6930Mchviqi, Other (See Comments)-[facility] DO Work Phone: (20 sources)Penicillin; Translations: [penicillin]Drug Btuecrv84-10-8099 anaphylaxisSalem City Hospital (20 sources)Duragesic-75Drug vmtiriw86-22-6058fmhvdnGzugspbij [facility] (20 sources)fentaNYL; Translations: [fentaNYL]Drug Veqtihe44-23-9360Qpgyljzuw, Dizziness, loopy [facility] (20 sources)Indomethacin; Translations: [INDOMETHACIN]Drug Pbbttbu36-12-7068 DizzinessSalem City Hospital (20 sources)zolpidem; Translations: [ZOLPIDEM]Drug Fgulkds51-14-5101Fomaidymc, Confusion, memory lossSalem City Hospital (1 source)fentaNYLDrug AllergyThe [facility] (2 sources)PenicillinsDrug allergy (disorder)21-99-7541Vwf [facility] Rep[facility] (1 source)ProcyclidineDrug AllergyThe [facility] Rep[facility] (1 source)zolpidemDrug AllergyThe [facility] Rep[facility] (4 sources)PenicillinsDrug Uyagpjc68-24-8190Iafho, Mental Status Change [facility] Work Phone: (1 source)Duragesic-25; Translations: [Duragesic-25]Propensity to adverse reactions (disorder)[facility] Repository (1 source)FentaNYL Matrix; Translations: [FentaNYL Matrix]Propensity to adverse reactions (disorder)[facility] Repository (1 source)PenicillinsDrug allergy (disorder)64-61-7339OnfwajeizSalem City Hospital Repository Medications Current Medications MedicationDrug Class(es)DatesSig (Normalized)Sig (Original)albuterol 0.833 mg/ml / ipratropium bromide 0.167 mg/ml inhalation solution (20 sources)Anticholinergic, beta2-Adrenergic AgonistStart: 16-24-9142Uuasf: 12-38-4733xure 1 mL by inhalation three times dailyStart: 07-12-2024 End: 66-69-1232Esdse: 07-12-2024 End: 38-62-8661dvnp 1 mL by inhalation every six hours as needed for wheezing Ipratropium-Albuterol 0.5 mg-3 mg(2.5 mg base)/3 mL solution for nebulization Discontinued 3 ML INHALATION Every 6 hours as needed for shortness of breath or wheezing July 12, 2024 12:00am September 1:59pmazithromycin 250 mg oral tablet (3 sources)Macrolide AntimicrobialStart: 99-25-7661Joipnrrkz Z-Jed 250 MG as directed Orally Sep, Activebudesonide 0.25 mg/ml inhalation suspension (4 sources)CorticosteroidStart: 67-03-1753Tcmcc: 29-73-0819lfbk 0.5 mg by inhalation twice dailybumetanide 1 mg oral tablet (20 sources)Loop DiureticStart: mg, IntraVENous, ONCE, 1 dose, On 02/25/24 at 0900Start: 10-17-2019 End: 38-93-6996Qeqya: 10-17-2019 End: 75-42-1349Evwch: 01-14-2016 End: 28-96-9580mavg 1 tablet by mouth once dailyBumetanide 1 mg tablet Discontinued 1 MG PO Daily June 06, 2023 12:00am June 06, 2023 3:49pmStart: 82-59-2020ozgc 0.5 tablet by mouth once daily as neededBumex 1 MG 0.5 tablet Orally Once a day PRN Jan, ActiveStart: 32-48-5847zteg 1 tablet by mouth every other day as neededBumex 1 MG 1 tablet Orally every other day PRN Jan, ActiveStart: 42-77-9200IGFCB 2 MG TABLET Take one(1) tablet daily. 0 04/07/2004 Activecefdinir 300 mg oral capsule (1 source)Cephalosporin AntibacterialStart: 02-27-2024 End: 71-67-6306ykjn 1 capsule by mouth twice dailycefdinir (OMNICEF) 300 MG capsule Take 1 capsule by mouth 2 times daily for 7 days 14 capsule 02/27/2024 03/05/2024 ActiveceFEPIme (MAXIPIME) 2,000 mg in sodium chloride 0.9 % 100 mL IVPB (mini-bag) (1 source)Start: 42,000 mg, IntraVENous, at 25 mL/hr, Administer over 240 Minutes, EVERY 12 HOURS, First dose on 02/25/24 at 2000celecoxib 200 mg oral capsule (1 source)Nonsteroidal Anti-inflammatory DrugStart: 01-56-4179DJUPTCKC 200 MG CAPSULE Take one(1) capsule daily. 0 04/07/2004 ActiveCompression Pump (20 sources)Start: 53-92-5260Zjoqsikswtw Pump as directed to bilateral lower extremity Q other PM Feb, Activecompression stockings 30-40 mmhg (20 sources)Start: 78-84-7523tyischfepky stockings 30-40 mmhg as directed knee high as directed 2 pair 30-40mmhg size xs. 5 gvaris, 923cx5, [place] [id number] Sep, ActiveStart: 74-71-6814jdcnvzdqpew stockings 30-40 mmhg as directed knee high as directed 2 pair Sep, ActivedilTIAZem hydrochloride 30 mg oral tablet (3 sources)Calcium Channel BlockerStart: 47-28-5885okwhgdovojko 5 mg oral tablet (1 source)Serotonin Reuptake InhibitorStart: 56-40-2459FUEHJDT 5 MG TABLET take one half daily 0 04/07/2004 Activeglucagon (rdna) 1 mg injection (1 source)Antihypoglycemic AgentStart: 47-07-96012843 ml glucose 100 mg/ml injection (3 sources)Start: 79-17-9857Rlliq: 51-31-7905gwxdnggx bolus 10% 125 mLStart: 93-71-3641Ohlkqgmdh (20 sources)Magnesium 400 MG Orally Activetake 1 tablet by mouth once daily Magnesium 400 MG Oral Tablet Take 1 tablet daily Quantity: 0 Refills: 0 Ordered: 05-Jan-2021 DO Activemagnesium oxide 400 mg oral tablet (20 sources)Start: 01-05-2024 End: 39-43-9445lhrn 1 tablet by mouth once dailymagnesium oxide (Mag-Ox) 400 mg (241.3 mg magnesium) tablet Indications: Chronic atrial fibrillation (Multi) , Essential hypertension, benign , Non-ischemic cardiomyopathy (Multi) Take 1 tablet (400 mg) by mouth once daily. 90 tablet 3 01/05/2024 01/04/2025 Active Start: 01-05-5010Npddm: 52-86-4177lcos 1 tablet by mouth once dailyMagnesium Oxide 400 (240 Mg) MG Oral Tablet TAKE 1 TABLET BY MOUTH EVERY DAY Quantity: 90 Refills: 3 Ordered: 16-Feb-2022 Tavo Mcintyre DO Start : 15-Feb-2022 Active Start: 10-17-2019 End: 63-48-2607izdmuiogr hydrochloride 2.5 mg oral tablet (2 sources)alpha-Adrenergic AgonistStart: 16-40-2707muoy 2.5 mg by mouth three times daily at mealtime2.5 mg, Oral, 3 TIMES DAILY WITH MEALS, First dose (after last modification) on Tue02/24/24 at 0800, Until Discontinued, Do not give after 1800 or within 4 hrs of bedtime. Hold for sbp > 120Start: 02-22-2024 End: 60-29-6534kllt 10 mg by mouth three times daily at mg, Oral, 3 TIMES DAILY WITH MEALS, First dose on Tue02/22/24 at 2130, Until Discontinued, Do not give after 1800 or within 4 hrs of bedtime.Multi For Him (20 sources)Multi For Him Activenystatin 100 unt/mg topical powder (20 sources)Polyene AntifungalStart: 07-33-2823Eyyik: 90-36-9951Cxnav: 06-06-2023 End: 63-17-1621Ulajw: 06-06-2023 End: 16-01-0135Ctkddmtx 100,000 unit/gram powder Discontinued 1 APPLIC TOPICAL Twice daily June 06, 2023 12:00amJan2024 11:14am FreeTextSi application Externally Twice a day; Note: Source Status: Taking; Refills: 3; Provider: Daily Wiggins PStart: 23-94-2625Fziisiae 254026 UNIT/GM 1 application Externally Twice a day for 30 days Feb, Activeondansetron (ZOFRAN-ODT) disintegrating tablet 4 mg (1 source)Start: 34-37-4613didhgsclnvq (ZOFRAN-ODT) disintegrating tablet 4 mg microencapsulated potassium chloride 20 meq extended release oral tablet (20 sources)Start: 80-50-9380Cpemx: 80-35-9615oxbsfbuvm chloride (KLOR-CON M) extended release tablet 40 mEqStart: 12-21-2019 End: 12-17-2798Ncgxi: 12-21-2019 End: 53-30-6801tpco 1 tablet by mouth at bedtimePotassium Chloride 20 mEq Tablet Extended Release Discontinued 20 MEQ PO Bedtime December 21, 201912:00am January 04, 2020 12:33pm On Hold: Resume on 12/26/19.Start: 21-22-2006vwff 1 tablet by mouth once dailyK-Dur 20 mEq 1 tablet orally Once a day Oct, ActiveStart: 04-07-2004 End: 58-87-0918zkhymicktch dihydrochloride 0.25 mg oral tablet (15 sources)Nonergot Dopamine AgonistStart: 10-05-2024 End: 12-18-2024 End: 01-56-0299tjod 1 tablet by mouth once dailypramipexole (MIRAPEX) 0.25 MG tablet Take 1 tablet by mouth daily 02/27/2024 Discontinued (Stop Taking at Discharge)terazosin 2 mg oral capsule (1 source)alpha-Adrenergic BlockerStart: 69-24-3369WNEVEQ 2 MG CAPSULE Take one(1) capsule daily. 0 04/07/2004 Active Completed/Discontinued Medications MedicationDrug Class(es)DatesSig (Normalized)Sig (Original)acetaminophen 500 mg oral tablet (20 sources)Start: 03-10-2024 End: 53-73-4063Vnspq: 03-10-2024 End: 36-44-8835jgsa 1 tablet by mouth three times daily as needed for pain Acetaminophen (Acetaminophen Extra Strength) 500 mg tablet Discontinued 500 MG PO Three times dailyas needed for pain 20 July 17, 2024 1:26pm December 12, 2024 3:21pmStart: 30-97-4967ximt 1 tablet by mouth twice dailyAcetaminophen (Acetaminophen Extra Strength) 500 mg tablet Active 500 MG PO Twice daily March 10, 2024 12:00amStart: 49-23-0645159 mg, Rectal, EVERY 4 HOURS PRN, Starting on 02/25/24 at 0700, Until Discontinued, Pain Mild (1-3), Fever, Maximum dose of acetaminophen is 4000 mg from all sources in 24 hours.Start: 06-06-2023 End: 74-15-7086Tlast: 06-06-2023 End: 26-59-8268Qtlew: 01-04-2020 End: 33-42-9679Cuvrh: 01-04-2020 End: 86-99-3267yqsy 2 tablets by mouth twice dailyAcetaminophen 500 mg Tablet Discontinued 1000 MG PO Twice daily 60 0 January 04, 2020 12:00am June 06, 2023 11:56amStart: 01-04-2020 End: 29-13-3138Ogjth: 01-04-2020 End: 07-84-8974eupp 1000 mg by mouth twice dailyAcetaminophen Discontinued 1000 MG PO Twice daily January 04, 2020 12:00am June 06, 2023 11:56amStart: 10-17-2019 End: 37-09-8976Wkdqe: 10-17-2019 End: 98-22-6997bsqp 2 tablets by mouth twice dailyAcetaminophen (Tylenol) 325 mg Tablet Discontinued 650 MG PO Twice daily October 17, 2019 12:00am November 06, 2019 9:42am paintake 1 capsule by mouth every six hoursTylenol 325 MG 1 capsule as needed Orally every 6 hrs Activeacetaminophen 325 mg / HYDROcodone bitartrate 5 mg oral tablet (20 sources)Opioid AgonistStart: 11-06-2019 End: 90-06-3018Uzzqa: 11-06-2019 End: 46-68-2266vsid 1 tablet by mouth every six hours as needed for pain Hydrocodone-Acetaminophen ([place]) 5-325 mg tablet Discontinued 1 TAB PO Q6H as needed for pain 10 0Sept2019November 06, 2019 9:42am Other injury of unspecified body regionStart: 11-06-2019 End: 08-72-7684Jowze: 11-06-2019 End: 83-54-5824sfii 1 tablet by mouth every six hours as needed for pain Hydrocodone-Acetaminophen ([place]) 5-325 mg tablet Discontinued 1 TAB PO Q6H as needed for pain 10 November 06, 2019 November 05, 2020 9:42amStart: 11-06-2019 End: 89-28-9107cwzm 1 tablet by mouth every six hours as needed for pain Hydrocodone-Acetaminophen ([place]) 5-325 mg tablet Discontinued 1 TAB PO Q6H as needed for pain November 06, 2019 November 06, 2019 9:42amStart: 11-06-2019 End: 24-19-7939ifcm 1 tablet by mouth every six hours as needed for pain Hydrocodone-Acetaminophen ([place]) 5-325 mg tablet Discontinued 1 TAB PO Q6H as needed for pain November 06, 2019 November 06, 2019 9:42amStart: 11-06-2019 End: 57-04-1314riha 1 tablet by mouth every six hours as needed for pain Hydrocodone-Acetaminophen ([place]) 5-325 mg tablet Discontinued 1 TAB PO Q6H as needed for pain November 06, 2019 November 06, 2019 9:42amStart: 11-06-2019 End: 47-73-9887xbmn 1 tablet by mouth every six hours as needed for pain Hydrocodone-Acetaminophen ([place]) 5-325 mg tablet Discontinued 1 TAB PO Q6H as needed for pain November 06, 2019 November 06, 2019 9:42amStart: 11-06-2019 End: 60-21-3762ljok 1 tablet by mouth every six hours as needed for pain Hydrocodone-Acetaminophen ([place]) 5-325 mg tablet Discontinued 1 TAB PO Q6H as needed for pain November 06, 2019 November 06, 2019 9:42amStart: 11-06-2019 End: 44-50-5434Cvlah: 11-06-2019 End: 68-24-0869Iowrt: 11-06-2019 End: 94-06-8140ckyh 1 tablet by mouth every six hours as needed for pain Hydrocodone-Acetaminophen ([place]) 5-325 mg tablet Discontinued 1 TAB PO Q6H as needed for pain November 06, 2019 November 06, 2019 9:42amStart: 11-06-2019 End: 62-39-1163yglx 1 tablet by mouth every six hours as needed for pain Hydrocodone-Acetaminophen ([place]) 5-325 mg tablet Discontinued 1 TAB PO Q6H as needed for pain November 06, 2019 November 06, 2019 9:42amStart: 11-06-2019 End: 70-21-6009rqad 1 tablet by mouth every six hours as needed for pain Hydrocodone-Acetaminophen ([place]) 5-325 mg tablet Discontinued 1 TAB PO Q6H as needed for pain November 06, 2019 November 06, 2019 9:42amStart: 11-06-2019 End: 92-03-1796jxev 1 tablet by mouth every six hours as needed for pain Hydrocodone-Acetaminophen ([place]) 5-325 mg tablet Discontinued 1 TAB PO Q6H as needed for pain 10 November 06, 2019 November 06, 2019 9:42amStart: 11-06-2019 End: 39-68-4224Jrcaa: 11-06-2019 End: 86-68-2144Ukphe: 11-06-2019 End: 05-94-8900Oiosy: 11-06-2019 End: 04-75-1910Lvczz: 11-06-2019 End: 42-43-7432Pxibk: 11-06-2019 End: 24-95-4492ndub 1 tablet by mouth every six hours as needed for pain Hydrocodone-Acetaminophen ([place]) 5-325 mg tablet Discontinued 1 TAB PO Q6H as needed for pain November 06, 2019 November 06, 2019 9:42amStart: 11-06-2019 End: 53-96-0108ctik 1 tablet by mouth every six hours as needed for pain Hydrocodone-Acetaminophen ([place]) 5-325 mg tablet Discontinued 1 TAB PO Q6H as needed for pain November 06, 2019 November 06, 2019 9:42amStart: 11-06-2019 End: 16-66-3341Gtnjw: 11-06-2019 End: 93-49-4318Wssne: 11-06-2019 End: 93-12-8368aafk 1 tablet by mouth every six hours as needed for pain Hydrocodone-Acetaminophen ([place]) 5-325 mg tablet Discontinued 1 TAB PO Q6H as needed for pain November 06, 2019 November 06, 2019 9:42amStart: 11-06-2019 End: 24-09-4910cfnv 1 tablet by mouth every six hours as needed for pain Hydrocodone-Acetaminophen ([place]) 5-325 mg tablet Discontinued 1 TAB PO Q6H as needed for pain November 06, 2019 November 06, 2019 9:42amStart: 11-06-2019 End: 56-60-5627fkoq 1 tablet by mouth every six hours as needed for pain Hydrocodone-Acetaminophen ([place]) 5-325 mg tablet Discontinued 1 TAB PO Q6H as needed for pain November 06, 2019 November 06, 2019 9:42amStart: 11-06-2019 End: 53-65-2369mghl 1 tablet by mouth every six hours as needed for pain Hydrocodone-Acetaminophen ([place]) 5-325 mg tablet Discontinued 1 TAB PO Q6H as needed for pain November 06, 2019 November 06, 2019 9:42amStart: 11-06-2019 End: 92-05-3084rdja 1 tablet by mouth every six hours as needed for pain Hydrocodone-Acetaminophen ([place]) 5-325 mg tablet Discontinued 1 TAB PO Q6H as needed for pain November 06, 2019 November 06, 2019 8:42amStart: 11-06-2019 End: 42-86-2610srpq 1 tablet by mouth every six hours as needed for pain Hydrocodone-Acetaminophen ([place]) 5-325 mg tablet Discontinued 1 TAB PO Q6H as needed for pain November 06, 2019 November 06, 2019 8:42amStart: 11-06-2019 End: 07-44-9346hgpz 1 tablet by mouth every six hours as needed for pain Hydrocodone-Acetaminophen ([place]) 5-325 mg tablet Discontinued 1 TAB PO Q6H as needed for pain November 06, 2019 November 06, 2019 8:42amStart: 11-06-2019 End: 98-48-3028ypog 1 tablet by mouth every six hours as needed for pain Hydrocodone-Acetaminophen ([place]) 5-325 mg tablet Discontinued 1 TAB PO Q6H as needed for pain November 06, 2019 November 06, 2019 8:42amStart: 11-06-2019 End: 45-96-3463mgud 1 tablet by mouth every six hours as needed for pain Hydrocodone-Acetaminophen ([place]) 5-325 mg tablet Discontinued 1 TAB PO Q6H as needed for pain November 06, 2019 November 06, 2019 8:42amStart: 11-06-2019 End: 46-14-4143rvuj 1 tablet by mouth every six hours as needed for pain Hydrocodone-Acetaminophen ([place]) 5-325 mg tablet Discontinued 1 TAB PO Q6H as needed for pain November 06, 2019 November 06, 2019 8:42amStart: 11-06-2019 End: 02-16-1176hadu 1 tablet by mouth every six hoursHydrocodone-Acetaminophen ([place]) 5-325 mg tablet Discontinued 1 TAB PO Q6H November 06, 2019 S 2019 9:42amStart: 11-06-2019 End: 23-02-8972haxr 1 tablet by mouth every six hoursHydrocodone-Acetaminophen ([place]) 5-325 mg tablet Discontinued 1 TAB PO Q6H November 06, 2019 S 2019 9:42amStart: 11-06-2019 End: 71-01-8738sxkm 1 tablet by mouth every six hoursHydrocodone-Acetaminophen ([place]) 5-325 mg tablet Discontinued 1 TAB PO Q6H November 06, 2019 S 2019 9:42amStart: 11-06-2019 End: 66-05-6403gcxt 1 tablet by mouth every six hoursHydrocodone-Acetaminophen ([place]) 5-325 mg tablet Discontinued 1 TAB PO Q6H November 06, 2019 S 2019 9:42amStart: 11-06-2019 End: 11-94-1368mobo 1 tablet by mouth every six hoursHydrocodone-Acetaminophen ([place]) 5-325 mg tablet Discontinued 1 TAB PO Q6H November 06, 2019 S 2019 8:42amStart: 11-06-2019 End: 99-05-9602zaxf 1 tablet by mouth every six hoursHydrocodone-Acetaminophen ([place]) 5-325 mg tablet Discontinued 1 TAB PO Q6H November 06, 2019 S 2019 8:42amStart: 11-06-2019 End: 77-75-2902nald 1 tablet by mouth every six hoursHydrocodone-Acetaminophen ([place]) 5-325 mg tablet Discontinued 1 TAB PO Q6H November 06, 2019 S 2019 8:42amStart: 11-06-2019 End: 41-19-9658efdx 1 tablet by mouth every six hoursHydrocodone-Acetaminophen ([place]) 5-325 mg tablet Discontinued 1 TAB PO Q6H November 06, 2019 S 2019 8:42amStart: 11-06-2019 End: 90-10-1254hpal 1 tablet by mouth every six hoursHydrocodone-Acetaminophen ([place]) 5-325 mg tablet Discontinued 1 TAB PO Q6H November 06, 2019 S sheyariel 2019 9:42amStart: 11-06-2019 End: 27-48-8834twdh 1 tablet by mouth every six hoursHydrocodone-Acetaminophen ([place]) 5-325 mg tablet Discontinued 1 TAB PO Q6H November 06, 2019 S sheyariel 2019 9:42amStart: 34-08-5812RVVEAYL 5/500 TABLET as needed 0 04/07/2004 Activeacetaminophen 325 mg / oxyCODONE hydrochloride 5 mg oral tablet (20 sources)Opioid AgonistStart: 06-06-2023 End: 77-73-9529tvpu 1 tablet by mouth every six hours as needed for pain Oxycodone-Acetaminophen 5-325 mg tablet Discontinued 1 TAB PO Every 6 hours as needed for pain 8 2 0 July 17, 2024 October 05, 2024 7:29pm Abscess of left lower extremity Cutaneous abscess of left lower limbStart: 02-18-2022 End: 58-74-0137zjeu 1 tablet by mouth twice dailyoxyCODONE-acetaminophen (Percocet) 5-325 mg tablet Take 1 tablet by mouth 2 times a day. 07/08/2022 ActiveStart: 01-16-2022 End: 73-60-9499qyrd 1 tablet by mouth every eight hours as needed for pain Oxycodone-Acetaminophen 5-325 mg Tablet Discontinued 1 TAB PO Q8H as needed for Moderate Pain 9 3 0Nov2021June 06, 2023 11:57am Low back pain Low back pain, unspecifiedStart: 01-04-2020 End: 92-58-9186ijrt 1 tablet by mouth every four hours as needed for pain Oxycodone-Acetaminophen 5-325 mg Tablet Discontinued 1 TAB PO Q4H as needed for Mild Pain 30 7 0 January 04, 2020 January 16, 2022 1:30pm Status post total left knee replacement Presence of leftartificial knee jointStart: 11-06-2019 End: 66-46-9843Bquat: 11-06-2019 End: 64-92-7968afod 1 tablet by mouth every four to six hours as needed for pain Oxycodone-Acetaminophen (Percocet) 5-325 mg tablet Discontinued 1 - 2 TAB PO EVERY 4-6 HOURS as needed for pain 30 7 0 November 06, 2019 January 04, 2020 12:33pm Presence of left artificial knee jointtake 1 tablet by mouth every six hoursoxyCODONE-Acetaminophen 5-325 MG 1 tablet as needed Orally every [address] Brambila PRN Ysrjbo10 ml albumin human, skilled nursing 250 mg/ml injection (1 source)Human Serum AlbuminStart: 02-22-2024 End: g, IntraVENous, ONCE, 1 dose, On Tue02/22/24 at 1530, Administer over 60 Minutes, at 100 mL/hr,Infusion rate depends on indication and clinical situation. In emergencies, may administer as rapidly as necessary to improve clinical condition. After initial volume replacement: 5%: Do not exceed 2to 4 mL/minute in patients with normal plasma volume; 5 to 10 mL/minute in patients with hypoproteinemia 25%: Do not exceed 1 mL/minute in patients with normal plasma volume; 2 to 3 mL/minute in patients with hypoproteinemia allopurinol 300 mg oral tablet (20 sources)Xanthine Oxidase InhibitorStart: 04-07-2004 End: 33-78-5436xhygcrud 5 mg oral tablet (20 sources)Factor Xa InhibitorStart: 12-12-2024 End: 92-39-5874Bjroq: 03-15-2024 End: 34-54-0605Xnsmb: 03-15-2024 End: 28-93-8826rnkj 2 tablets by mouth twice dailyApixaban (Eliquis) 2.5 mg Tablet Discontinued 5 MG PO Twice daily July 12, 2024 12:00am December 18, 2024 11:08amStart: 10-17-2019 End: 24-90-6958ifhkufzdnhaw 40 mg oral tablet (20 sources)HMG-CoA Reductase InhibitorStart: 10-17-2019 End: 36-66-3577pnnuymtyce hydrochloride 0.137 mg/actuat metered dose nasal spray (20 sources)Histamine-1 Receptor AntagonistStart: 10-17-2019 End: 78-08-4990rdsbrqdkph hydrochloride 0.137 mg/actuat / fluticasone propionate 0.05 mg/actuat metered dose nasalspray (20 sources)Corticosteroid, Histamine-1 Receptor AntagonistStart: 10-17-2019 End: 72-25-4331Axrls: 10-17-2019 End: 94-66-9064Sigdeymtrd-Fluticasone 137-50 mcg/spray [place],Non-Aerosol Discontinued 1 SPRAY INTRANASAL Twice daily October 17, 2019 12:00am December 24, 2019 11:02amStart: 10-17-2019 End: 46-24-4378Bmvfphhudp-Fluticasone Discontinued 1 SPRAY INTRANASAL Twice daily October 16, 2019 11:00pm December 24, 2019 10:02amStart: 10-17-2019 End: 04-24-5704Gsvdivswkl-Fluticasone Discontinued 1 SPRAY INTRANASAL Twice daily October 17, 2019 12:00am December 24, 2019 11:02amAzelastine-Fluticasone 137-50 mcg/spray [place],Non-Aerosol (12 sources)Start: 10-17-2019 End: 40-14-4627Lgnzmdubgy-Fluticasone 137-50 mcg/spray [place],Non-Aerosol Discontinued 1 SPRAY INTRANASAL Twice daily October 17, 2019 12:00am December 24, 2019 11:02amStart: 10-17-2019 End: 64-42-9994Pahlywslhj-Fluticasone 137-50 mcg/spray [place],Non-Aerosol Discontinued 1 SPRAY INTRANASAL Twice daily October 16, 2019 11:00pm December 24, 2019 10:02ambisacodyl 5 mg delayed release oral tablet (3 sources)Stimulant LaxativeStart: 28-80-3083aoar 10 mg by mouth once daily10 mg, Oral, DAILY, First dose (after last modification) on Tue02/23/24 at 0900, Until Discontinued, Do not crush or break., Post-opStart: 35-84-9692Hdmes: 02-21-2024 End: 31-26-2846dmop 5 mg by mouth once daily5 mg, Oral, DAILY, First dose on Tue02/21/24 at 1945, Until Discontinued, Do not crush or break., Post-opcarvedilol 3.125 mg oral tablet (20 sources)alpha-Adrenergic Saroj, beta-Adrenergic BlockerStart: 03-15-2024 End: 56-40-4456Crpnj: 02-16-2024 End: 80-30-3612Ejupa: 10-17-2019 End: 04-84-8247xjEUBrzvf (ANCEF) 2,000 mg in sterile water 20 mL IV syringe (1 source)Start: 02-21-2024 End: 42,000 mg, IntraVENous, EVERY 8 HOURS, 2 doses, First dose on Tue02/21/24 at 2000, Last dose on Tue02/22/24 at 0400, Antimicrobial Indications: Surgical Prophylaxis, Administer over 5 mins. Reconstitute 2 g vial with 20 mL Sterile Water. Withdraw entire contents., Post-opcefepime 2000 mg injection (16 sources)Cephalosporin AntibacterialStart: 07-17-2024 End: 18-95-1019xzluoghlpl 500 mg oral capsule (20 sources)Cephalosporin AntibacterialStart: 04-11-2017 End: 62-30-3562nxclocudnzvrq 500 mg oral tablet (15 sources)Quinolone AntimicrobialStart: 08-29-2024 End: 27-83-0411neqwcfwlmnu 300 mg oral capsule (20 sources)Lincosamide AntibacterialStart: 03-10-2024 End: 70-84-5159plgazteltxrkqai hydrochloride 10 mg oral tablet (1 source)Muscle RelaxantStart: 96-80-3798vlfw 10 mg by mouth three times daily as dywoym07 mg, Oral, 3 TIMES DAILY PRN, Starting on Tue02/21/24 at 1918, Until Discontinued, Muscle spasms, Post-opdiclofenac sodium 0.01 mg/mg topical gel (20 sources)Nonsteroidal Anti-inflammatory DrugStart: 01-04-2020 End: 23-64-5229Aarjo: 01-04-2020 End: 99-67-2227xxkym 2 g topically three times dailyDiclofenac Sodium Discontinued 2 GM TOPICAL Three times daily January 04, 2020 12:00am January 09, 2022 2:10pmdigoxin 0.125 mg oral tablet (20 sources)Cardiac GlycosideStart: 10-17-2019 End: 15-37-8791fwwd 1 tablet by mouth every twenty-four hoursDigoxin 125 MCG 1 tablet Orally Once a day Activedocusate sodium 100 mg oral capsule (20 sources)Start: 11-06-2019 End: 32-57-3840Mflsy: 11-06-2019 End: 36-50-3657chkq 1 capsule by mouth once daily as neededDocusate Sodium 100 mg capsule Discontinued 100 MG PO Daily as needed June 06, 2023 12:00am Januar y 2024 11:13amdocusate sodium 50 mg / sennosides, skilled nursing 8.6 mg oral tablet (2 sources)Start: 02-21-2024 End: 24-42-7071wkll 2 tablets by mouth twice daily2 tablet, Oral, 2 TIMES DAILY, First dose (after last modification) on Tue02/22/24 at 2100, Until D iscontinued, Post-opdoxycycline hyclate 100 mg oral tablet (20 sources)Tetracycline-class DrugStart: 07-12-2024 End: 22-39-6640Wjdvi: 12-23-2023 End: 39-32-1111mhhimdzcu 1000 mg injection (3 sources)Penem AntibacterialStart: 12-18-2024 End: 57-28-9209imzzmnreogz 3 mg oral tablet (20 sources)Start: 11-16-2021 End: 32-34-3374Lgswd: 76-07-4844wtrp 1 tablet by mouth every twenty-four hours Eszopiclone 3 MG 1 tablet immediately before bedtime Orally Once a day May, ActiveStart: 10-17-2019 End: 76-85-1202njvjtbokql 0.92 mg/ml / menthol 0.42 mg/ml / methyl salicylate 0.6 mg/ml / thymol 0.64 mg/ml mouthwash (1 source)Start: 39-18-0866nuov 15 mL by mouth three times daily as mL, Swish & Spit, 3 TIMES DAILY PRN, Starting on 02/25/24 at 0814, Until Discontinued, Dry Mouthfluticasone propionate 0.05 mg/actuat metered dose nasal spray (20 sources)CorticosteroidStart: 01-09-2022 End: 95-15-2192Bnibpezdqpg Propionate 50 mcg/actuation spray,suspension Discontinued 1 SPRAY NARES-BOTH Daily at bedtime as needed for Nasal Congestion January 09, 2022 2:10pm June 06, 2023 11:57amStart: 01-04-2020 End: 61-68-0093Izprj: 01-04-2020 End: 93-92-8488Hltnlbbehkj Propionate 50 mcg/actuation [place],Suspension Discontinued 1 SPRAY NARES-BOTH Twice daily January 04, 2020 12:00am January 09, 2022 2:10pmfolic acid 1 mg oral tablet (1 source)Start: 68-03-5517appk 1 mg by mouth once daily1 mg, Oral, DAILY, First dose on Tue02/24/24 at 1300, Until Discontinuedfolic acid 2.5 mg / vitamin b12 1 mg / vitamin b6 25 mg oral tablet (20 sources)Vitamin V78Ddzeh: 01-04-2020 End: 78-27-3526Tewbt: 01-04-2020 End: 80-00-1545cdaq 1 tablet by mouth once dailyFolic Acid-Vit B6-Vit B12 ([place]) 2.5-25-1 mg Tablet Discontinued 1 TAB PO Daily January 04, 2020 12:00am January 09, 2022 2:09pm1 ml HYDROmorphone hydrochloride 1 mg/ml cartridge (3 sources)Opioid AgonistStart: 02-21-2024 End: .25 mg, IntraVENous, EVERY 5 MIN PRN, 4 doses, Starting on Tue02/21/24 at 1433, Until Tue02/21/24 at 1515, Pain Severe (7-10), If oral and IV narcotics ordered, use oral first and only use IV if oral is ineffective or cannot take oral. Do Not give oral and IV within 1 hour of each other unless sp ecifically ordered., PACU onlyStart: 02-21-2024 End: dose, Starting on Tue02/21/24 at 1419, Until Tue02/21/24 at 1419, Tiffanie Soliman: Janny meredith Jenna: kellyinet overrideStart: 02-21-2024 End: 81-71-1266etgt 0.25 mg by mouth once0.25 mg, IntraVENous, ONCE, 1 dose, On Tue02/21/24 at 0915, If oral and IV narcotics ordered, use oral first and only use IV if oral is ineffective or cannot take oral. Do Not give oral and IV within 1 hour of each other unless specifically ordered.hydrOXYzine pamoate 25 mg oral capsule (20 sources)AntihistamineStart: 11-06-2019 End: 87-22-5425Xlvgm: 11-06-2019 End: 25-31-7371Wwjgfgu (20 sources)Start: 39-40-2887Gljaglu Aug, 3 mLStart: 38-61-6288Vlrwbwn Aug, 3 mLlactulose 667 mg/ml oral solution (20 sources)Osmotic LaxativeStart: 01-04-2020 End: 52-64-7196Phosnfbqb Not-Takinglevothyroxine sodium 0.15 mg oral tablet (20 sources)l-ThyroxineStart: 08-24-9143Xryxfmhrm 137 MCG 1 tablet every morning on an empty stomach Orally Once a day for 90 days Aug, ActiveStart: 10-17-2017 End: 89-70-1259Ujaqm: 04-07-2004 End: 82-63-2180sdnu 1 tablet by mouth once daily in the morningLevothyroxine (Synthroid) 150 mcg tablet Discontinued 150 MCG PO Every morning June 06, 2023 12:00am September 21, 2023 9:53amlinezolid 600 mg oral tablet (10 sources)Oxazolidinone AntibacterialStart: 10-10-2024 End: 46-39-3375rcrfniivvp 2.5 mg oral tablet (1 source)Angiotensin Converting Enzyme InhibitorStart: 89-02-1157wktm 2.5 mg by mouth once daily2.5 mg, Oral, DAILY, First dose on 02/25/24 at 0900, Until Discontinued, Hold for SBPmagnesium hydroxide 80 mg/ml oral suspension (1 source)Start: 95-75-8116lvab 30 mL by mouth once daily as needed for cebhjzhjzhjh99 mL, Oral, DAILY PRN, Starting on 02/21/24 at 1918, Until Discontinued, Constipation, First line therapy for constipation., Post-op melatonin 5 mg oral tablet (20 sources)Start: 01-04-2020 End: 32-54-0849bheYKezhbj 5 mg oral tablet (20 sources)Thiazide-like DiureticStart: 03-10-2024 End: hr mirabegron 25 mg extended release oral tablet (20 sources)beta3-Adrenergic AgonistStart: 01-04-2020 End: 53-83-9254Vtfrp: 10-17-2019 End: 76-79-5796Fwkrrostjxib (Daily Multi-Vitamin) tablet (20 sources)Start: 06-06-2023 End: 76-30-9052vljt 1 tablet by mouth once dailyMultivitamin (Daily Multi- Vitamin) tablet Discontinued 1 TAB PO Daily June 06, 2023 12:00am March 10, 2024 11:14amStart: 06-06-2023 End: 72-67-1226xraz 1 tablet by mouth once dailyMultivitamin (Daily Multi- Vitamin) tablet Discontinued 1 TAB PO Daily June 05, 2023 11:00pm March 10, 2024 10:14amStart: 33-58-6670ohlr 1 tablet by mouth once dailyMultivitamin (Daily Multi-Vitamin) tablet Active 1 TAB PO Daily June 06, 2023 12:00am mupirocin 0.02 mg/mg topical ointment (20 sources)RNA Synthetase Inhibitor AntibacterialStart: 06-06-2023 End: 29-22-0053Soybl: 06-06-2023 End: 09-31-6168Ximrmfijr Active 1 APPLIC TOPICAL Twice daily December 23, 2023 12:06pm 1 application Externally Twice a dayStart: 49-76-0146Wkejxbhal 2 % 1 application Externally Twice a day Jan, Bgeild37 hr oxybutynin chloride 10 mg extended release oral tablet (20 sources)Cholinergic Muscarinic AntagonistStart: 06-06-2023 End: 22-61-8348Zrzck: 01-04-2020 End: 48-02-3901Ruapv: 01-04-2020 End: 16-00-9035wtzv 10 mg by mouth once daily at lunchOxybutynin Chloride Discontinued 10 MG PO Daily with lunch January 04, 2020 12:00am January 2:36pmStart: 10-17-2019 End: 94-51-5177nniENPROZ hydrochloride 5 mg oral tablet (12 sources)Opioid AgonistStart: 10-10-2024 End: 04-27-6763Twcfo: 97-70-8220ztiKIUUCM (ROXICODONE) immediate release tablet 5 mgStart: 02-21-2024 End: 64-07-2900eexh 1 dose by mouth once5 mg, Oral, ONCE PRN, 1 dose, Starting on Tue02/21/24 at 1510, Until Tue02/21/24 at 1548, Pain Moderate (4-6), Pain Severe (7-10), PHASE II, PACU onlypolyethylene glycol 3350 90391 mg powder for oral solution (19 sources)Osmotic LaxativeStart: 07-17-2024 End: 80-18-6874Wcead: 02-21-2024 End: 22-23-539473 g, Oral, ONCE, 1 dose, On Tue02/24/24 at 1230, Stir and dissolve one packet of powder (17 g) inany 4 to 8 ounces of beverage (cold, hot or room temperature) then drinksacubitril 24 mg / valsartan 26 mg oral tablet (20 sources)Angiotensin 2 Receptor BlockerStart: 10-17-2019 End: 83-32-2615Njegy: 10-17-2019 End: 08-95-1849txry 1 tablet by mouth twice dailySacubitril-Valsartan (Entresto) 24-26 mg Tablet Discontinued 1 TAB PO Twice daily 60 0 January 04, 2020 12:00am January 16, 2022 1:30pmENTRESTO 24 mg/26 mg 1 orally twice a day Ztvujr67 ml sodium chloride 9 mg/ml injection (8 sources)Start: 02-22-2024 End: 48-84-2566851 mL (5.79 mL/kg), IntraVENous, at 491.8 mL/hr, Administer over 61 Minutes, ONCE, On Tue02/22/24at 2044, For 1 doseStart: 81-98-37112-40 mL, IntraVENous, EVERY 12 HOURS SCHEDULED (2 times per day), First dose on Tue02/21/24 at 2100, Until Discontinued, For Line Patency: Peripheral IV = 5 mL; Midline or Central Line = 10 mL/lumen. If following IV push medication, administer flush at same rate as the IV push. Flush volume is determined by type of infusion therapy being given. For non-viscous solutions use: Peripheral IV = 5 mLMidline or Central Line = 10 mL/lumen For viscous solutions (i.e. blood components, parenteral nutrition, contrast media, or after obtaining blood sample) use: Peripheral IV = 10 mL Midline or Central Line = 20 mL/lumen, Post-opStart: 41-78-4270Jnrjr: 02-21-2024 End: 54-24-0387CigvkRUAjoz, at 125 mL/hr, CONTINUOUS, Starting on Tue02/21/24 at 1945, Post-opStart: 89-69-8180iblt 20 mL intravenously every hourIntraVENous, at 5-250 mL/hr, PRN, if patient receiving piggyback infusions and maintenance fluids are not ordered OR KVO fluids to protect IV site / prevent frequent line interruptions/ long duration, Starting on Tue02/21/24 at 1918, For piggyback infusion, administer at same rate as piggyback fora total of 25 mL. Enter 25 mL into dose field and piggyback rate into rate field of order. If piggyback is infusing at a rate less than 100 mL/hr, enter 25 mL into dose field and 100 mL/hr into rate field of order. For KVO fluids, enter rate of 20 mL/hr or less into rate field of order., Post-opStart: 02-21-2024 End: 49-71-5574RjeyxTPTtnh, at 5-250 mL/hr, PRN, if patient receiving piggyback infusions and maintenance fluids are not ordered, Starting on Tue02/21/24 at 0735, For piggyback infusion, administer at same rate aspiggyback for a total of 25 mL. Enter 25 mL into dose field and piggyback rate into rate field of order. If piggyback is infusing at a rate less than 100 mL/hr, enter 25 mL into dose field and 100 mL/hr into rate field of order., Pre-op (day of surgery) sulfamethoxazole 800 mg / trimethoprim 160 mg oral tablet (20 sources)Dihydrofolate Reductase Inhibitor Antibacterial, Sulfonamide AntimicrobialStart: 12-23-2023 End: 19-88-9359Mycxj: 12-23-2023 End: 40-90-0461zziw 1 tablet by mouth twice dailySulfamethoxazole-Trimethoprim (Bactrim Ds) 800-160 mg tablet Discontinued 1 TAB PO Twice daily 20 0October 2023 12:00am February 13, 2024 10:23am Open wound of skin Other injury of unspecified body region, initial encounterStart: 01-09-2022 End: 43-86-1496Iqgxu: 01-07-2022 End: 65-76-3328hark 1 tablet by mouth twice dailySulfamethoxazole-Trimethoprim (Bactrim Ds) 800-160 mg Tablet Discontinued 1 TAB PO Twice daily January 09, 2022 12:00am January 16, 2022 1:30pm started 01/08/22 for 7 daysStart: 12-21-2019 End: 82-99-1138Qfqbp: 12-21-2019 End: 15-57-1866xlxw 1 tablet by mouth every twelve hoursSulfamethoxazole- Trimethoprim (Bactrim Ds) 800-160 mg Tablet Discontinued 1 TAB PO Q12H December 21, 2019 12:00am December 25, 2019 1:37pmtamsulosin hydrochloride 0.4 mg oral capsule (20 sources)alpha-Adrenergic BlockerStart: 03-15-2024 End: 09-05-4557qktkdejq 100 mg oral tablet (1 source)Start: 64-27-4956lfii 100 mg by mouth once pagha182 mg, Oral, DAILY, First dose on Tue02/24/24 at 1300, Until DiscontinuedtraZODone hydrochloride 50 mg oral tablet (20 sources)Serotonin Reuptake InhibitorStart: 01-09-2022 End: 04-16-6617Mzfnmgzlgorgq (20 sources)CorticosteroidStart: 70-41-7503Mtuvfum -40 mg July, 40 mg vancomycin 1000 mg injection (16 sources)Glycopeptide AntibacterialStart: 07-17-2024 End: 09-18-2024 (18 sources)Start: 06-06-2023 End: 88-10-5067Qejym: 10-17-2019 End: 12-24-2019 Problems Active Problems Problem ClassificationProblemDateDocumented DateEpisodic/ChronicAcute cerebrovascular disease (20 sources)Intracranial hemorrhage; Translations: [Nontraumatic intracranial hemorrhage, unspecified]Onset: 189813-67-4575YciqkmuVbwkmxb dysrhythmias (20 sources)Chronic atrial fibrillation; Translations: [Atrial fibrillation] Onset: 01-19-2021 Resolved: 18-33-9663HpdekoxRvvuion dysrhythmias (20 sources)Bradycardia; Translations: [Bradycardia, unspecified]01-10-2022 EpisodicChronic kidney disease (1 source)Chronic kidney disease; Translations: [Chronic kidney disease, stage 3 unspecified]Onset: 05-25-1368Udhvchs ulcer of skin (14 sources)Pressure ulcer of sacral region, stage 2; Translations: [Pressure injury of coccygeal region, stage2]Onset: 362821-32-0467Afcokex Complication of device; implant or graft (20 sources)Urinary tract infectious disease; Translations: [Infection and inflammatory reaction due to indwelling urethral catheter, initial encounter] Onset: 164763-19-8215YyjiugxdJefxvmygrw heart failure; nonhypertensive (20 sources)Heart failure; Translations: [Heart failure, unspecified]Onset: 08-31-2021 Resolved: 27-89-2668QythpvwJopcmnoa atherosclerosis and other heart disease (20 sources)Coronary atherosclerosis; Translations: [Coronary atherosclerosis of unspecified type of vessel, douglas or graft]Onset: 107990-21-3647Mhascme Disorders of lipid metabolism (20 sources)Hyperlipidemia; Translations: [Other and unspecified hyperlipidemia] Onset: 01-19-2021 Resolved: 58-37-3245LlgxbqgD Codes: Fall (20 sources)Unspecified fall, initial encounter; Translations: [Fall]Episodic Essential hypertension (20 sources)Benign essential hypertension; Translations: [Benign essential hypertension]Onset: 08-31-2021 Resolved: 16-40-5932QrkzknpIlwvj of unknown origin (20 sources)Fever; Translations: [Fever, unspecified]Onset: 439277-74-7064 EpisodicFluid and electrolyte disorders (20 sources)Dehydration; Translations: [Dehydration]99-51-3318Gnrbtgmn Genitourinary symptoms and ill-defined conditions (1 source)Urge incontinence; Translations: [URGE INCONTINENCE]Onset: 05-17-2022 ChronicGout and other crystal arthropathies (20 sources)Gout; Translations: [Gout, unspecified]Onset: 09-04-2021 Resolved: 31-79-7830AdliwzmVydfrkovqux of prostate (20 sources)Benign prostatic hyperplasia; Translations: [Benign prostatic hyperplasia without lower urinary tract symptoms]Onset: 01-19-2021 Resolved: 83-39-4840EyplnayJoogjqsdqjur injury (1 source)Traumatic subdural hemorrhage without loss of consciousness, initial encounter; Translations: [Traumatic subdural hemorrhage without loss of consciousness, initial encounter]Onset: 16-24-5878GutsyqjtQfjrsph and fatigue (20 sources)Asthenia; Translations: [Weakness]Onset: EpisodicMycoses (3 sources)Candidiasis, unspecified; Translations: [Pain in toe]Episodic Neoplasms of unspecified nature or uncertain behavior (20 sources)Ependymoma ; 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, unspecified]74-40-5511JxpxgeuOsgiwjj on above:1989Open wounds of extremities (1 source)Laceration without foreign body of left upper arm, initial encounter EpisodicOpen wounds of head; neck; and trunk (20 sources)Laceration - injury; Translations: [Laceration]21-07-7781Crecnboi Osteoarthritis (20 sources)Osteoarthritis of left knee joint; 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, left knee]ChronicOsteoporosis (7 sources)Senile osteoporosis; Translations: [Age-related osteoporosis without current pathological fracture]Onset: 366888-95-1982GryzzfmKprxy acquired deformities (20 sources)Acquired spondylolisthesis; Translations: [Spondylolysis, lumbar region]EpisodicOther acquired deformities (20 sources)Spondylolysis; Translations: [Spondylolysis, lumbar region] 79-81-1626UwrkcbixRlbvn acquired deformities (9 sources)Spondylolysis, lumbar region; Translations: [Acquired spondylolisthesis]00-68-7876JmujznvfQcicn aftercare (20 sources)Drug therapy finding; Translations: [Long-term (current) use of other medications]28-50-2904RnucypqjMdxvx aftercare (20 sources)Long-term current use of anticoagulant; Translations: [Long-term (current) use of anticoagulants]Onset: 705353-90-7995MaketerhNwetj and unspecified benign neoplasm (20 sources)Spinal meningioma; Translations: [Benign neoplasm of spinal meninges]EpisodicOther circulatory disease (7 sources)H/O: atrial fibrillation; Translations: [Personal history of other diseases of circulatory system]EpisodicOther circulatory disease (3 sources)History of sick sinus syndrome; Translations: [Personal history of other diseases of circulatory system]EpisodicOther circulatory disease (1 source)Abnormal foot pulse; Translations: [Other specified symptoms and signs involving the circulatory and respiratory systems]60-81-7473ZkzzvjwbOtnzz connective tissue disease (20 sources)History of repair of hip joint; Translations: [Presence of left artificial hip joint]ChronicOther connective tissue disease (20 sources)Artificial knee joint present; Translations: [Presence of unspecified artificial knee joint]ChronicOther connective tissue disease (20 sources)History of total knee arthroplasty; Translations: [Presence of left artificial knee joint]98-82-3527SkocsrvNeits connective tissue disease (20 sources)Synovial cyst of popliteal space; Translations: [Synovial cyst of popliteal space [[place]], left knee]EpisodicOther connective tissue disease (20 sources)Neuropathic pain; Translations: [Neuralgia and neuritis, unspecified]EpisodicOther connective tissue disease (20 sources)Recurrent falls ; Translations: [Repeated falls]59-14-3069Uvhaewpr Other connective tissue disease (4 sources)Repeated falls; Translations: [History of fall]Onset: 12-12-2024 65-03-5530BlfacdcrJrnwl connective tissue disease (1 source)Muscle weakness (generalized)EpisodicOther connective tissue disease (7 sources)Other symptoms and signs involving the musculoskeletal system; Translations: [Weakness of both lower extremities]Onset: EpisodicOther diseases of bladder and urethra (20 sources)Bladder irritability; Translations: [Other specified disorders of bladder]ChronicOther diseases of bladder and urethra (20 sources)Bladder muscle dysfunction - overactive; Translations: [Overactive bladder]ChronicOther diseases of veins and lymphatics (20 sources)Vascular insufficiency; Translations: [Venous insufficiency (chronic) (peripheral)]53-54-7526BqhqpqvhFuiob diseases of veins and lymphatics (3 sources)Venous insufficiency (chronic) (peripheral); Translations: [Venous (peripheral) insufficiency, unspecified]33-87-3805ZegvcstoJfhzo ear and sense organ disorders (13 sources)Tinnitus; Translations: [Tinnitus, unspecified ear]EpisodicOther fractures (12 sources)Compression fracture of lumbar spine; Translations: [Wedge compression fracture of first lumbar vertebra, initial encounter for closed fracture]82-31-9842RodbduvePhbij fractures (1 source)Wedge compression fracture of first lumbar vertebra, initial encounter for closed fracture; Translations: [Wedge compression fracture of first lumbar vertebra, initial encounter for closed fracture]Onset: 48-05-3541CpcawpemDoazy gastrointestinal disorders (20 sources)Constipation; Translations: [Constipation, unspecified]01-09-2022 EpisodicOther gastrointestinal disorders (3 sources)Constipation, unspecified; Translations: [Constipation, unspecified] 16-62-7945DgzykyllPjcba hematologic conditions (5 sources)Raised cardiac enzyme or marker; Translations: [Other specified abnormalities of plasma proteins]03-04-1867NgqbnqngQmsbu hematologic conditions (4 sources)Other specified abnormalities of plasma proteins; Translations: [Other abnormal blood chemistry]74-73-7945EfidzyxoZbcsg injuries and conditions due to external causes (20 sources)Open wound of skin; Translations: [Other injury of unspecified body region, initial encounter]55-81-1462XvzciddiMtyys lower respiratory disease (20 sources)Hypoxemia; Translations: [Hypoxemia]91-03-6151JagvulcxBvsxd lower respiratory disease (20 sources)Hypoxia; Translations: [Hypoxemia]56-45-1874HqcerezoRhqgu nervous system disorders (20 sources)Chronic pain; Translations: [Other chronic pain]ChronicOther nervous system disorders (1 source)Other chronic painOnset: 01-19-2021 Resolved: 55-59-2807AruhootOniid nervous system disorders (20 sources)Difficulty walking; Translations: [Difficulty in walking, 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]43-36-9484VltgxjgSojag nervous system disorders (3 sources)Difficulty in walking, 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; Translations: [Difficulty in walking]29-10-0041LmyonivRuxhj nervous system disorders (20 sources)Muscle weakness; Translations: [Other specified myopathies] 74-95-7693VvqdsocIkaii nervous system disorders (3 sources)Other specified myopathies; Translations: [Myopathy, unspecified] 15-12-9972JvcvfncLxhai nervous system disorders (1 source)Metabolic encephalopathy; Translations: [Metabolic encephalopathy] Onset: 08-58-4961JwrmkljHhjnf non-traumatic joint disorders (20 sources)Multiple joint pain; Translations: [Pain in unspecified joint] EpisodicOther non-traumatic joint disorders (20 sources)Ankle pain; Translations: [Pain in left ankle and joints of left foot]21-42-0484BpsghyiuPiyym nutritional; endocrine; and metabolic disorders (3 sources)Body mass index 30+ - obesity; Translations: [Body Mass Index 33.0- 33.9, adult]Onset: 550422-46-1424RdirayoHumle nutritional; endocrine; and metabolic disorders (20 sources)Obesity; Translations: [Obesity, unspecified]ChronicOther nutritional; endocrine; and metabolic disorders (2 sources)Body mass index (BMI) 30.0-30.9, adult; Translations: [Body mass index (BMI) 30.0-30.9, adult]Onset: 63-35-9502HpehbdkCzdqf nutritional; endocrine; and metabolic disorders (1 source)Abnormal weight lossEpisodicOther nutritional; endocrine; and metabolic disorders (3 sources)Overweight in adulthood with body mass index of 25 or more but less than 30; Translations: [Overweight]EpisodicOther screening for suspected conditions (not mental disorders or infectious disease) (20 sources)Echocardiogram abnormal; Translations: [Nonspecific (abnormal) findings on radiological and other examination of other intrathoracic organs] Onset: 01-19-2021 Resolved: 20-40-1893CevvpefcKfqdl skin disorders (20 sources)Abnormality of nail of toe; Translations: [Other nail disorders] EpisodicOther skin disorders (1 source)Actinic keratosisEpisodicOther upper respiratory infections (20 sources)Sinusitis; Translations: [Chronic sinusitis, unspecified]Chronic Pratima-; endo-; and myocarditis; cardiomyopathy (except that caused by tuberculosis or sexually transmitted disease) (20 sources)Cardiomyopathy; Translations: [Other primary cardiomyopathies]Onset: 02-16-2023 Resolved: 455982-62-6284SbbfetdEqckhuzo; pneumothorax; pulmonary collapse (20 sources)Pleural effusion; Translations: [Pleural effusion, 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]87-31-9410YcubjusfXxwnnphz codes; unclassified (20 sources)Sleep apnea; Translations: [Sleep apnea, unspecified]01-09-2022 ChronicComment on above:does not use equipmentResidual codes; unclassified (3 sources)Sleep apnea, unspecified; Translations: [Unspecified sleep apnea] 85-00-1908OeepfloZblmcwip codes; unclassified (7 sources)Swelling - edema - symptom; Translations: [Edema]EpisodicResidual codes; unclassified (20 sources)Edema; Translations: [Edema]Onset: 024755-13-3673Yyygyqpz Residual codes; unclassified (20 sources)Insomnia; Translations: [Insomnia, unspecified]83-24-2073Cpjfciil Residual codes; unclassified (8 sources)Insomnia, unspecifiedOnset: 03-05-2021 Resolved: 67-89-3502VkggkvwwOhjaljcp codes; unclassified (20 sources)Activity of daily living (ADL) alteration; Translations: [Other specified health status]66-18-1568HllbiddpZhfzihnz codes; unclassified (20 sources)Edema, generalized; Translations: [Generalized edema]12-21-2019 EpisodicResidual codes; unclassified (20 sources)Patient encounter status; Translations: [Encounter for prophylactic measures, unspecified]06-96-7369PatyacbcZnoqvmss codes; unclassified (20 sources)Altered mental status; Translations: [Altered mental status, unspecified]47-72-6947GctflgjvHtdpjosp codes; unclassified (1 source)Localized edemaEpisodicResidual codes; unclassified (3 sources)Altered mental status, unspecified; Translations: [Altered mental status]39-00-0631VmjvxqcrVcinwohp codes; unclassified (3 sources)Generalized edema; Translations: [Edema]32-22-1248SmmrotvpCjeesxyo codes; unclassified (7 sources)Other specified health status; Translations: [Other specified conditions influencing health status]35-74-2067UmuktggpMvznvynu codes; unclassified (1 source)Localized edema; Translations: [Localized edema]47-95-3387Tyvrwkfo Residual codes; unclassified (1 source)Other specified postprocedural states; Translations: [Other specified postprocedural states]Onset: 78-65-3415PimvacjxPrxhjhhdwkq failure; insufficiency; arrest (adult) (20 sources)Acute respiratory failure; Translations: [Acute respiratory failure with hypoxia]07-04-7123HecvdtbgNyywzdfymwf; intervertebral disc disorders; other back problems (20 sources)Degeneration of lumbar intervertebral disc; Translations: [Other intervertebral disc degeneration, lumbar region]Onset: 36-76-6017Zdghqrk Spondylosis; intervertebral disc disorders; other back problems (20 sources)Chronic low back pain; Translations: [Acute exacerbation of chronic low back pain]Onset: 455834-38-0204ShdibrdcHwufvltylhk injury; contusion (20 sources)Abrasion, left knee, initial encounter; Translations: [Abrasion of left upper arm, initial encounter]Onset: 05-86-9782QagohwopVufndse disorders (20 sources)Hypothyroidism; Translations: [Hypothyroidism, unspecified]Onset: 01-19-2021 Resolved: 21-53-6200FcrivlvSxayyvzrbauv (3 sources)LOW BACK PAIN, UNSPECIFIED; Translations: [LOW BACK PAIN, UNSPECIFIED]Onset: 71-41-3196Psucqxltkxfa (1 source)Patient encounter isddht65-84-0658Zhkrxskkuubz (1 source)Longstanding persistent atrial fibrillation; Translations: [Longstanding persistent atrial fibrillation]Onset: 92-76-9146Gjwbqojmtfcg (12 sources)A [facility] screening has identified you as FRAIL or AT RISK FOR FRAILTY. This puts you at a higher risk for infection, illness, falls, and other injuries. Here are four ways to help you reduce your risk of frailty: 1. IDENTIFY EARLY SIGNS OF FRAILTY Discuss contributing factors and concerns with your doctor 2. BE ACTIVE Walking and light strengthening exercises will help reduce weakness 3. EAT WELL Aim for three healthy meals a day that are high in protein 4. THINK POSITIVE Keep your mind active by being sociable and continuing to learn References: Stay Strong: Four Ways to Beat the Frailty Risk https://www.[facility].org/health/pdsvrsez-hsr-vnhqpawumj/yduk-bmqhsr-waph- bjjy-fu-ktko-the-fra aeln-qxxk92-12tnua60-64-3626Wwzajdfuzliq (3 sources)Chronic atrial fibrillation, unspecified; Translations: [Chronic atrial fibrillation, unspecified (Multi)]Onset: 61-47-6711Nolqwxwbgoli (14 sources)For a brain CT. This must be done prior to the appointment with Dr. Stovall.Unclassified (7 sources)Please call to schedule follow up appointment following discharge from residential facility.Unclassified (7 sources)Please have the Brain CT done 1 day prior to this appointment. This appointment is scheduled with Dr. Stovall's Nurse Practitioner.Unclassified (2 sources)Please call to schedule an appointment for right heel stage 3 pressure injury.Varicose veins of lower extremity (20 sources)Varicose veins of lower extremity; Translations: [Varicose veins of left lower extremity with othercomplications]85-15-8001QwdgnltvPgjnz infection (20 sources)Disease caused by 2019-nCoV; Translations: [COVID-19]03-10-2024 Episodic Past or Other Problems Problem ClassificationProblemDateDocumented DateEpisodic/ChronicAcute and unspecified renal failure (20 sources)Acute renal failure syndrome; Translations: [Acute kidney failure, unspecified]Onset: 473876-00-5197FqljhemxUbhldpqyu infection; unspecified site (20 sources)Bacteremia; Translations: [Bacteremia due to Pseudomonas]Onset: 470667-22-7554DvqksebcKmgiztnwfuppv of surgical procedures or medical care (1 source)Disruption of external operation (surgical) wound, 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, initial encounter; Translations: [Disruption of external operation (surgical) wound, 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, initial encounter]Onset: 06-06-2024 EpisodicGenitourinary symptoms and ill-defined conditions (20 sources)Retention of urine; Translations: [Retention of urine, unspecified] Onset: 464514-80-6307NphzkoxmQarzc aftercare (2 sources)MCFP (current) use of anticoagulants; Translations: [MCFP (current) use of anticoagulants]Onset: 63-27-8465CqgqyodhWfazh aftercare (1 source)Encounter for other orthopedic aftercare; Translations: [Encounter for other orthopedic aftercare]Onset: 13-31-0838UxzpsnotOcdxt connective tissue disease (5 sources)Muscle wasting and atrophy, 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, unspecified site; Translations: [MUSCLE WASTING ATROPHY NEC UNS SITE]Onset: 08-17-2021 EpisodicOther lower respiratory disease (7 sources)Hypoxemia; Translations: [Hypoxemia]Onset: 483797-53-1509 EpisodicScreening and history of mental health and substance abuse codes (20 sources)Ex-smoker; Translations: [Personal history of tobacco use]Onset: 867575-32-6263SlocdinuZvgpcby on above:Quit smoking in 1979;Septicemia (except in labor) (20 sources)Sepsis; Translations: [Sepsis, unspecified organism]Onset: 273359-70-2839WszhjwywOmmb and subcutaneous tissue infections (20 sources)Cellulitis, unspecified; Translations: [Cellulitis]Onset: 07-12-2024 51-34-3303PxvpoxqgOvciyqfpomol (1 source)LOW BACK PAIN, UNSPECIFIED; Translations: [LOW BACK PAIN, UNSPECIFIED] Onset: 28-86-9610Lpymodtewsid (1 source)Cough, unspecified type R05.9Unclassified (2 sources)Onset: 053609-05-4853Nwhcgbv tract infections (20 sources)Urinary tract infection, site not specified; Translations: [Urinary tract infectious disease]Onset: 49-08-4377Axbfzqlk Results Test NameValueInterpretationReference RangeFacilityBasophils Auto (Bld) [#/Vol] Ordered By: Sha Pepe on 72-00-9329Pennylubt (Bld) [#/Vol]0.1 10 3/uL0.0-0.1 [facility] HospitalBasophils/100 WBC Auto (Bld)Ordered By: Sha Pepe on 01-49-4527Mhdhhozqr/100 WBC (Bld)0.8 %0.2-2.0[facility] HospitalEosinophils/100 WBC Auto (Bld)Ordered By: Sha Pepe on 99-53-8531Qtmsvvlfgtc/100 WBC (Bld)2.7 %0.9-7.0[facility] Erythrocyte distribution width Auto (RBC) [Ratio]Ordered By: Sha Pepe on 33-63-7196Mbhxkruqfpe distribution width (RBC) [Ratio]16.9 %High11.0-15.0 [facility] HospitalGlobulin Calc (S) [Mass/Vol]Ordered By: Sha Pepe on 88-57-9752Hcceufqa (S) [Mass/Vol]3.7 g/dLSalem City HospitalGlomerular filtration rate (GFR) estimation in non- AmericanOrdered By: Sha Pepe on 30-81-8474YUU/1.73 sq M.predicted among non-blacks MDRD (S/P/Bld) [Vol rate/Area]28 mL/min/{1.73_m2}Low>=60 mL/min/1.73m 2FJoint Township District Memorial HospitalHematocrit Auto (Bld) [Volume fraction]Ordered By: Sha Pepe on 24-25-8969Wftzjlqqux (Bld) [Volume fraction]26.0 %Low42.0-54.0 [facility] HospitalHemoglobin [Mass/volume] in BloodOrdered By: Sha Pepe on 08-89-5895Jbchaekhet (Bld) [Mass/Vol]8.3 g/dLLow14.0-18.0 [facility] HospitalIron binding capacity [Mass/volume] in Serum or PlasmaOrdered By: Sha Pepe on 71-49-6040Cdwh binding capacity [Mass/Vol] 177.0 ug/oFPcl808.0-450.0[facility] HospitalIron saturation [Mass Fraction] in Serum or PlasmaOrdered By: Sha Pepe on 68-59-6485Otuq saturation [Mass fraction]6.8 %[facility] HospitalLeukocytes [#/volume] corrected for nucleated erythrocytes in Blood by Automated coun Ordered By: Sha Pepe on 06-14-3430SRN corrected for nucl RBC Auto (Bld) [#/Vol]7.1 10 3/uL4.0-11.0[facility] HospitalLymphocytes Auto (Bld) [#/Vol]Ordered By: Sha Pepe on 62-92-1620Sicibncpuqa (Bld) [#/Vol]1.0 10 3/uLLow1.2-3.8[facility] HospitalLymphocytes/100 WBC Auto (Bld)Ordered By: Sha Pepe on 94-52-4395Pyvayvmlfap/100 WBC (Bld)14.0 %Low 20.5-60.0[facility]H Auto (RBC) [Entitic mass]Ordered By: Sha Pepe on 31-66-3824BSJ (RBC) [Entitic mass]28.3 pg25.9-34.0[facility] HospitalMCHC Auto (RBC) [Mass/Vol]Ordered By: Sha Pepe on 16-04-1856ZNBB (RBC) [Mass/Vol]31.7 g/dL29.9-35.2FJoint Township District Memorial HospitalMCV Auto (RBC) [Entitic vol]Ordered By: Sha Pepe on 05-30-7434QJO (RBC) [Entitic vol]89.3 fL80.0-94.0[facility] HospitalMonocytes Auto (Bld) [#/Vol]Ordered By: Sha Pepe on 37-50-8979Becsezfxp (Bld) [#/Vol] 0.5 10 3/uL0.3-0.8[facility] HospitalMonocytes/100 WBC Auto (Bld) Ordered By: Sha Pepe on 50-12-8178Xmikicrnm/100 WBC (Bld)6.8 %1.7-12.0 [facility] HospitalNeutrophils Auto (Bld) [#/Vol]Ordered By: Sha Pepe on 69-46-4020Uwuhltzceip (Bld) [#/Vol]5.3 10 3/uL1.4-6.5FJoint Township District Memorial HospitalNeutrophils/100 WBC Auto (Bld)Ordered By: Sha Pepe on 67-93-8866Myurwendirm/100 WBC (Bld)75.6 %High43.0-75.0[facility] HospitalNo Panel InformationOrdered By: Sha Pepe on 57-62-123783.1 [facility]41.0 mg/dLHigh7.0-18.0[facility]8.6 mg/dL8.5-10.1FJoint Township District Memorial Hospital108 mmol/LHigh 98-107[facility]25.0 mmol/L21.0-32.0[facility]2.26 mg/dLHigh0.70-1.30[facility]34Low>=60 mL/min/1.73m 2FJoint Township District Memorial Hospital107 mg/sLCtsc31-041NpsyrljubSalem City Hospital4.1 mmol/L3.5-5.1FJoint Township District Memorial Hospital141 mmol/L013-430FuvmcxznpSalem City Hospital9.00 ng/mL8.60-58.90[facility]293.0 ng/mL26.0-388.0[facility] 10.864 u[iU]/mLHigh0.358-3.740[facility]2.4 mg/dL1.8-2.4 [facility]12.0 ug/dLLow65.0-175.0[facility]2.4 g/dLLow3.4-5.0[facility]0.2 10 3/uL 0.0-0.7FJoint Township District Memorial Hospital96 U/F30-168PzehbipotSalem City Hospital16 U/D01-40SprhdhtujSal[facility] Hospital17 U/A68-57WghqbyaarSalem City Hospital0.01 10 3/uL0.00-0.03[facility]0.1 %0.0-0.5 [facility]0.5 mg/dL0.2-1.0[facility]6.1 g/dLLow6.4-8.2FJoint Township District Memorial HospitalPlatelet mean volume Auto (Bld) [Entitic vol]Ordered By: Sha Pepe on 23-41-5571Wsbzstdg mean volume (Bld) [Entitic vol]9.7 fL9.5-13.5FJoint Township [facility] Platelets Auto (Bld) [#/Vol]Ordered By: Sha Pepe on 67-97-7833Vpxhsifff (Bld) [#/Vol]216 10 3/iO907-461JgmrywwdgSalem City HospitalRBC Auto (Bld) [#/Vol]Ordered By: Sha Pepe on 84-72-9193HNB (Bld) [#/Vol]2.72 10 6/uLLow 4.70-6.10[facility] Campuserum or plasma albumin/globulin mass ratioOrdered By: Sha Pepe on 79-92-0020Fxuzlpy/Globulin [Mass ratio]0.6 {ratio}[facility] West Campuserum or plasma anion gap determination Ordered By: Sha Pepe on 75-10-3662Jwozz gap [Moles/Vol]12.1 mmol/LFJoint Township District Memorial HospitalBasophils Auto (Bld) [#/Vol]Ordered By: Clarence Schroeder on 05-46-4242Mtjmoznms (Bld) [#/Vol]0.1 10 3/uL0.0-0.1FJoint Township District Memorial HospitalBasophils/100 WBC Auto (Bld)Ordered By: Clarence Schroeder on 12-30-2024 Basophils/100 WBC (Bld)0.6 %0.2-2.0[facility] Eosinophils/100 WBC Auto (Bld)Ordered By: Clarence Schroeder on 12-30-2024 Eosinophils/100 WBC (Bld)1.9 %0.9-7.0[facility] Erythrocyte distribution width Auto (RBC) [Ratio]Ordered By: Clarence Schroeder on 41-27-0161Gfleoxfqttf distribution width (RBC) [Ratio]16.9 %High11.0-15.0 [facility] HospitalGlomerular filtration rate (GFR) estimation in non- AmericanOrdered By: Clarence Schroeder on 33-03-3022OPF/1.73 sq M.predicted among non-blacks MDRD (S/P/Bld) [Vol rate/Area]23 mL/min/{1.73_m2}Low>=60 mL/min/1.73m 2FJoint Township District Memorial HospitalHematocrit Auto (Bld) [Volume fraction]Ordered By: Clarence Schroeder on 11-93-6031Itjznqafuk (Bld) [Volume fraction] 24.0 %Low42.0-54.0[facility] HospitalHemoglobin [Mass/volume] in BloodOrdered By: Clarence Schroeder on 64-98-9034Mhzeubdxsd (Bld) [Mass/Vol]7.6 g/dLLow 14.0-18.0[facility] HospitalLeukocytes [#/volume] corrected for nucleated erythrocytes in Blood by Automated counOrdered By: Clarence Schroeder on 28-23-2593LEV corrected for nucl RBC Auto (Bld) [#/Vol]11.9 10 3/uLHigh4.0-11.0 [facility] HospitalLymphocytes Auto (Bld) [#/Vol]Ordered By: Clarence Schroeder on 24-45-7344Pjylayknnqz (Bld) [#/Vol]1.2 10 3/uL1.2-3.8[facility] HospitalLymphocytes/100 WBC Auto (Bld)Ordered By: Clarence Schroeder on 60-78-1061Jtvccytpxpu/100 WBC (Bld)10.4 %Low20.5-60.0[facility] HospitalMCH Auto (RBC) [Entitic mass]Ordered By: Clarence Schroeder on 74-17-8476RJP (RBC) [Entitic mass]28.8 pg25.9-34.0[facility] HospitalMCHC Auto (RBC) [Mass/Vol]Ordered By: Clarence Schroeder on 81-07-9049KTEA (RBC) [Mass/Vol]31.7 g/dL29.9-35.2FJoint Township District Memorial HospitalMCV Auto (RBC) [Entitic vol] Ordered By: Clarence Schroeder on 93-98-5401HLR (RBC) [Entitic vol]90.9 fL80.0-94.0 [facility] HospitalMonocytes Auto (Bld) [#/Vol]Ordered By: Clarence Schroeder on 71-52-6224Jlguydakz (Bld) [#/Vol]0.8 10 3/uL0.3-0.8[facility] HospitalMonocytes/100 WBC Auto (Bld)Ordered By: Clarence Schroeder on 12-30-2024 Monocytes/100 WBC (Bld)6.9 %1.7-12.0[facility] HospitalNeutrophils Auto (Bld) [#/Vol]Ordered By: Clarence Schroeder on 40-03-0511Qrvkupibtqt (Bld) [#/Vol]9.5 10 3/uLHigh1.4-6.5FJoint Township District Memorial HospitalNeutrophils/100 WBC Auto (Bld)Ordered By: Clarence Newsometon on 60-67-8356Nxrdisjhntb/100 WBC (Bld)79.9 %High43.0-75.0[facility] HospitalNo Panel InformationOrdered By: Clarence Alexandre on 51-93-7158BWK-[facility] HospitalNONE SEEN #/LPFNONE/RARESalem City HospitalNone Seen #/HPFNone [facility] HospitalMALL #/HPFAbnormalLITTLE COLORADO MEDICAL CENTERE [facility] HospitalNegativeNEG/TRACETrinity Health System West CampusMALLAbnormalNEGATIVE [facility] City HospitalCLEARCLEARSalem City HospitalLT. YELLOWYELLOWSalem City HospitalMODERATEAbnormalNEGATIVESalem City HospitalNONE SEENSouth[facility] PositiveAbnormalNEGATIVESalem City Hospital6.05.0-9.0[facility]2-5 #/HPFAbnormal0-2FJoint Township District Memorial Hospital <=1.582Oetftnxm7.005-1.025[facility]0.2 EU/dL0.2-1.0 [facility]5-10 #/HPFAbnormalNONE [facility]1.5 mmol/L0.4-2.0[facility]122.3 pg/mL Critically high4.0-76.1FJoint Township District Memorial Hospital4924.0 pg/mLCritically high<=1800.0[facility]16.5FJoint Township District Memorial Hospital44.0 mg/dLHigh7.0-18.0[facility]0.2 10 3/uL0.0-0.7 [facility]9.5 mg/dL8.5-10.1FJoint Township District Memorial Hospital97 mmol/VRbk94-354KwjqzqxddSalem City Hospital24.2 mmol/L21.0-32.0 [facility]2.66 mg/dLHigh0.70-1.30[facility]0.04 10 3/uLHigh0.00-0.03[facility]28Low >=60 mL/min/1.73m 2FJoint Township District Memorial Hospital0.3 %0.0-0.5FJoint Township District Memorial Hospital100 mg/lL88-003FtgbyabydSalem City Hospital4.7 mmol/L3.5-5.1FJoint Township District Memorial Hospital131 mmol/ZNfc826-657EhybacsjqSalem City HospitalPlatelet mean volume Auto (Bld) [Entitic vol]Ordered By: Clarence Schroeder on 40-85-6228Butnqwwv mean volume (Bld) [Entitic vol]9.5 fL9.5-13.5 [facility] HospitalPlatelets Auto (Bld) [#/Vol]Ordered By: Clarence Schroeder on 90-08-6555Bmctcnrfp (Bld) [#/Vol]294 10 3/fF821-253FrqgzsjroSalem City HospitalRBC Auto (Bld) [#/Vol]Ordered By: Clarence Schroeder on 28-98-2647WIJ (Bld) [#/Vol]2.64 10 6/uLLow4.70-6.10[facility] West Campuserum or plasma anion gap determinationOrdered By: Clarence Schroeder on 44-71-6765Ngpmw gap [Moles/Vol]14.5 mmol/LFJoint Township District Memorial HospitalUrine Cultureon 84-52-3571Guyhuaim identified Cx Nom (U)NormalThe [facility] Comment on above:Performed By: #### CUU ####[facility] [address] [place] [address] USAYeast detection in urine sediment by light microscopyOrdered By: Clarence Schroeder on 35-24-4014Fsolp LM Ql (Urine sed)SEEN AbnormalNONE SEENSalem City HospitalBasophils Auto (Bld) [#/Vol] Ordered By: Cristy Prince ([place]) on 37-96-2989Ginqlcjfe (Bld) [#/Vol]0.1 10 3/uL0.0-0.1FJoint Township District Memorial HospitalBasophils/100 WBC Auto (Bld)Ordered By: (Maki) Cristyvanita Livingstonon on 15-97-4120Cpmodmalf/100 WBC (Bld)0.9 %0.2-2.0 [facility] HospitalEosinophils/100 WBC Auto (Bld)Ordered By: (Maki) Cristyvanita Prince on 63-88-6588Getlyjzbbju/100 WBC (Bld)2.8 %0.9-7.0 [facility] HospitalErythrocyte distribution width Auto (RBC) [Ratio]Ordered By: (Maki) Cristy Niki on 12-30-1071Cowzknsmbtw distribution width (RBC) [Ratio]16.9 %High11.0-15.0[facility] HospitalGlobulin Calc (S) [Mass/Vol]Ordered By: (Maki) Cristy Niki on 92-18-1553Xgapjtif (S) [Mass/Vol]4.2 g/dLSalem City HospitalGlomerular filtration rate (GFR) estimation in non- AmericanOrdered By: (Maki) Cristyvanita Livingstonon on 31-73-2487INO/1.73 sq M.predicted among non-blacks MDRD (S/P/Bld) [Vol rate/Area]51 mL/min/{1.73_m2}Low>=60 mL/min/1.73m 2FJoint Township District Memorial HospitalHematocrit Auto (Bld) [Volume fraction]Ordered By: (Maki) Cristy Niki on 08-59-5466Xmnnxlggqa (Bld) [Volume fraction]27.1 %Low42.0-54.0[facility] HospitalHemoglobin [Mass/volume] in BloodOrdered By: (Maki) Cristy Niki on 01-27-8569Lcnublatpl (Bld) [Mass/Vol]8.7 g/dLLow14.0-18.0 [facility] HospitalLaboratory - Chemistry and Chemistry - challengeOrdered By: (Maki) Cristy Niki on 77-95-0404Mqleybcfs Ql (U) NegativeNEGATIVESalem City HospitalGlucose (U) [Mass/Vol]Negative NEGATIVESalem City HospitalKetones Ql (U)NegativeNEGATIVESalem City HospitalpH (U)5.5 [pH]5.0-9.0[facility] Specific gravity (U) [Rel density]<=1.129Sfdlqybd1.005-1.025[facility] HospitalUrobilinogen Qn (U)0.2 {Raghu'U}/dL0.2-1.0[facility] HospitalAlbumin [Mass/Vol]2.7 g/dLLow3.4-5.0[facility] HospitalALP [Catalytic activity/Vol]143 U/YUust35-467FghwnmhbxSalem City HospitalALT [Catalytic activity/Vol]30 U/I32-44KnlbqbudySalem City Hospital AST [Catalytic activity/Vol]42 U/EWdiu97-10UeoxhtarxSalem City Hospital Bilirubin [Mass/Vol]0.5 mg/dL0.2-1.0[facility] HospitalCalcium [Mass/Vol]8.9 mg/dL8.5-10.1FJoint Township District Memorial HospitalChloride [Moles/Vol] 97 mmol/HOdh73-208SqrqbisshSalem City HospitalCO2 [Moles/Vol]24.8 mmol/L 21.0-32.0[facility] HospitalCreatinine [Mass/Vol]1.33 mg/dLHigh 0.70-1.30[facility] HospitalGFR/1.73 sq M.predicted MDRD (S/P/Bld) [Vol rate/Area]mL/min/{1.73_m2}>=60 mL/min/1.73m 2FJoint Township District Memorial HospitalGlucose [Mass/Vol]92 mg/xY34-792LdewuamqySalem City HospitalPotassium [Moles/Vol]5.1 mmol/L3.5-5.1FJoint Township District Memorial HospitalProtein [Mass/Vol] 6.9 g/dL6.4-8.2FUniversity Hospitals Elyria Medical Centerodium [Moles/Vol]131 mmol/LLow 136-145Sal[facility] HospitalUrea nitrogen [Mass/Vol]24.0 mg/dLHigh 7.0-18.0[facility] HospitalUrea nitrogen/Creatinine [Mass ratio] 18.0 mg/mgSalem City HospitalLaboratory - Hematology and Cell countsOrdered By: Cristy Prince ([place]) on 41-04-0475Aszzwdgg granulocytes/100 WBC (Bld)0.5 %0.0-0.5FJoint Township District Memorial HospitalLaboratory - Specimen informationOrdered By: Cristy Prince ([place]) on 41-21-5688Zfbyxzamzq (U)SL CLOUDYCLEARFJoint Township District Memorial HospitalColor (U)LT. YELLOWYELLOWSalem City HospitalLaboratory - UrinalysisOrdered By: (Glynn) Cristy Prince on 88-78-9545Azjtczdkc esterase Test strip Ql (U)SMALLAbnormalNEGATIVESalem City HospitalMucus Ql (Urine sed)NONE SEENNONE SEENSalem City HospitalNitrite Ql (U)NegativeNEGATIVESalem City Hospital Protein Ql (U)NegativeNEG/TRACESalem City HospitalLeukocytes [#/volume] corrected for nucleated erythrocytes in Blood by Automated coun Ordered By: (Glynn) Cristy Prince on 77-69-1013MRD corrected for nucl RBC Auto (Bld) [#/Vol]8.1 10 3/uL4.0-11.0[facility] HospitalLymphocytes Auto (Bld) [#/Vol]Ordered By: (Glynn) Cristy Prince on 47-18-4803Mqiqycqewxo (Bld) [#/Vol]1.2 10 3/uL1.2-3.8[facility] HospitalLymphocytes/100 WBC Auto (Bld)Ordered By: (Glynn) Cristy Prince on 78-49-8755Knpfpnofzvs/100 WBC (Bld)14.4 %Low20.5-60.0[facility] Auto (RBC) [Entitic mass]Ordered By: (Glynn) Cristy Prince on 84-11-0958UIO (RBC) [Entitic mass]28.9 pg25.9-34.0[facility] Auto (RBC) [Mass/Vol]Ordered By: (Monisha Prince on 66-44-1286ONYT (RBC) [Mass/Vol] 32.1 g/dL29.9-35.2FJoint Township District Memorial HospitalMCV Auto (RBC) [Entitic vol] Ordered By: (Glynn) Cristy Prince on 89-51-2100ESI (RBC) [Entitic vol]90.0 fL 80.0-94.0[facility] HospitalMonocytes Auto (Bld) [#/Vol]Ordered By: (Glynn) Cristy Prince on 99-44-8613Mrxyxbctg (Bld) [#/Vol]0.7 10 3/uL 0.3-0.8[facility] HospitalMonocytes/100 WBC Auto (Bld)Ordered By: Cristy Prince ([place]) on 99-62-5727Zwzoavmng/100 WBC (Bld)8.6 %1.7-12.0 [facility] HospitalNeutrophils Auto (Bld) [#/Vol]Ordered By: (Glynn) Cristy Prince on 92-48-8000Lkquvmuwahm (Bld) [#/Vol]5.9 10 3/uL1.4-6.5 [facility] HospitalNeutrophils/100 WBC Auto (Bld)Ordered By: Cristy Prince ([place]) on 74-53-4561Kcfdvsmipaj/100 WBC (Bld)72.8 %43.0-75.0 [facility] HospitalNo Panel InformationOrdered By: Cristy Prince ([place]) on 01-51-3230Liiaw BacteriaSMALL #/HPFAbnormalNONE SEENSalem City HospitalUrine Culture ReflexedYE-Magruder HospitalUrine Microscopic ReviewYEFostoria City HospitalUrine Occult BloodNegativeNEGATIVESalem City HospitalUrine Other CastsNONE SEEN #/LPFNONE SEENSalem City HospitalUrine Other CrystalsNone Seen #/HPFNone [facility] CampusUrine RBC0-2 #/HPF0-2FJoint Township District Memorial HospitalUrine Squamous Epithelial CellsNONE SEEN #/LPFNONE/RARE [facility] HospitalUrine EZD94-56 #/HPFAbnormalNONE SEENSalem City HospitalYES-FRMCSalem City HospitalYESSalem City HospitalNONE SEEN #/LPFNONE/RARES[facility] NegativeNEG/TRACESalem City HospitalNone Seen #/HPFNone Seen [facility] CampusMALL #/HPFAbnormalNONE SEENTrinity Health System West CampusL CLOUDYCLEARFJoint Township District Memorial HospitalNONE SEENNONE SEEN [facility] HospitalLT. YELLOWYELLOWSal[facility] City Hospital0-2 #/HPF0-2FJoint Township District Memorial Hospital10-20 #/HPFAbnormalNONE SEEN [facility] CampusMALLAbnormalNEGATIVESalem City Hospital5.55.0-9.0[facility]<=1.235Bvcazksv6.005-1.025 [facility]0.2 EU/dL0.2-1.0[facility] HospitalEosinophils # (Auto)0.2 10 3/uL0.0-0.7FJoint Township District Memorial Hospital Immature Granulocyte # (Auto)0.04 10 3/uLHigh0.00-0.03[facility] HospitalTroponin I High Njczgzyieem187.3 pg/mLCritically high4.0-76.1FJoint Township District Memorial HospitalComment on above:RESULTS CALLED TO YARIEL Prince, SENIOR ACCOUNTING MANAGER @BY Holland Noel, [facility] 2156CUT-OFF POINTS HAVE BEEN ESTABLISHED BASED ON THE FOURTHUNIVERSAL DEFINITION OF MYOCARDIAL INFARCTION. THE UPPERREFERENCE LIMIT (URL) OF TROPONIN, DEFINED THE 99THPERCENTILE OF cTnI DISTRIBUTION IN A REFERENCE POPULATION,HAS BEEN CONFIRMED THE DECISION THRESHOLD FOR MIDIAGNOSIS.99TH PERCENTILE = 76.2 PG/MLNOTE: HIGH-SENSITIVITY TROPONIN ASSAY IS NOT INTENDED TO BEUSED IN ISOLATION BUT SHOULD BE INTERPRETED IN CONJUNCTIONWITHOTHER DIAGNOSTIC AND CLINICAL INFORMATION.131.3 pg/mLCritically high4.0-76.1FJoint Township District Memorial Hospital2.7 g/dLLow3.4-5.0[facility]0.2 10 3/uL0.0-0.7FJoint Township District Memorial Hospital143 U/ZNkxg77-059XkrbyokogSalem City Hospital30 U/U83-69WvbpaqksvSal[facility] City Hospital42 U/CQszd17-45LukgghkqpSal[facility] City Hospital18.0[facility]0.04 10 3/uLHigh0.00-0.03[facility]24.0 mg/dLHigh7.0-18.0[facility]0.5 %0.0-0.5 [facility]8.9 mg/dL8.5-10.1FJoint Township District Memorial Hospital97 mmol/CLvc78-784KyoswynomSalem City Hospital24.8 mmol/L21.0-32.0 [facility]1.33 mg/dLHigh0.70-1.30[facility]>60>=60 mL/min/1.73m 2FJoint Township District Memorial Hospital92 mg/dL 74-106[facility]5.1 mmol/L3.5-5.1FJoint Township District Memorial Hospital131 mmol/VGmx428-245ClwyeqwciSalem City Hospital0.5 mg/dL 0.2-1.0[facility]6.9 g/dL6.4-8.2FJoint Township District Memorial HospitalPlatelet mean volume Auto (Bld) [Entitic vol]Ordered By: Cristy Prince ([place]) on 12-20-9053Wrnrwuko mean volume (Bld) [Entitic vol]10.6 fL 9.5-13.5FJoint Township District Memorial HospitalPlatelets Auto (Bld) [#/Vol]Ordered By: Cristy Prince ([place]) on 57-62-8597Dprkbxixv (Bld) [#/Vol]244 10 3/jK240-335 [facility] HospitalRBC Auto (Bld) [#/Vol]Ordered By: Cristy Prince ([place]) on 38-62-4337WAV (Bld) [#/Vol]3.01 10 6/uLLow4.70-6.10[facility] Campuserum or plasma albumin/globulin mass ratioOrdered By: Cristy Prince ([place]) on 02-27-3376Uqgyomv/Globulin [Mass ratio]0.6 {ratio} [facility] CenterSerum or plasma anion gap determinationOrdered By: (Glynn) Cristy Prince on 13-35-4821Npwhz gap [Moles/Vol]14.3 mmol/L [facility] HospitalUrine Cultureon 00-69-8042Hwjofgln identified Cx Nom (U)ORGANISM: Bibiana albicans (O:CANALB) [place] Count >100,000 PERFORMED BY: [facility] [address] [place] [address] PATHOLOGIST SILVERING APPLICATOR MARY SONI M.D.NormalThe Person Memorial Hospital Physician GroupComment on above: Performed By: #### CUU ####[address] [address] USAUrine cultureOrdered By: Liliana Miller on 54-38-1175Btfwwfha identified Cx Nom (U)Bibiana albicansAbUniversity Hospitals Cleveland Medical CenterYeast detection in urine sediment by light microscopy Ordered By: (Monisha Muniz Niki on 02-10-9125Hurdr LM Ql (Urine sed)SEEN AbnormalNONE [facility] HospitalComment on above:Many budding yeastModerate HyphaeBasophils [#/volume] in Blood by Automated countOrdered By: Michele Knight on 35-63-5047Eklywnnxl (Bld) [#/Vol]0.0 10*3/uLNormal0.0-0.2 [facility] HospitalComment on above:Result Comment: PERFORMED BY:[id number] [place], [place] [phone] MEDICAL DIRECTORMARY SONI M.D.Performed By: #### CBC ####[address] [address] [place] Basophils/100 leukocytes in Blood by Automated countOrdered By: Michele Knight on 98-12-8660Nlaoaznzf/100 WBC (Bld)0.7 %Normal.[facility] Comment on above:Performed By: #### CBC ####[address] [address] USAComplete Blood Count Auto Diffon 12-18-2024 Mean Corpuscular HGB Conc32.6 g/lCAboryr18.5-35.6[facility] Comment on above:Performed By: #### CBC ####[place] [id number] USANRBC%0.0 /100{WBC}Normal0-0.5The [facility] Hospital Physician GroupComment on above:Performed By: #### CBC ####[place] [id number] USAWhite Blood Count3.6 [CFU]/mL Low4.1-10.5The [facility] Physician GroupComment on above:Performed By: #### CBC ####[place] [address] [place] Eosinophils [#/volume] in Blood by Automated countOrdered By: Michele Eugene on 23-56-9344Toeuglkbsvb (Bld) [#/Vol]0.2 10*3/uLNormal0.0-0.45[facility] HospitalComment on above:Performed By: #### CBC ####[place] [id number] USAEosinophils/100 leukocytes in Blood by Automated countOrdered By: Michele Eugene on 43-22-4142Stezrhwdzth/100 WBC (Bld)6.5 %Normal.[facility] HospitalComment on above:Performed By: #### CBC ####[place] [address] USAErythrocyte distribution width [Ratio] by Automated countOrdered By: Michele Knight on 39-17-5918Pqgvzpumwfv distribution width (RBC) [Ratio]18.1 %High 12.0-14.8[facility] HospitalComment on above:Performed By: #### CBC ####[place] [id number] [place] Erythrocytes [#/volume] in Blood by Automated countOrdered By: Michele Knight on 76-66-2426TBR (Bld) [#/Vol]3.00 10*6/uLLow3.90-5.60[facility] HospitalComment on above:Performed By: #### CBC ####[place] [id number] USAHematocrit [Volume Fraction] of Blood by Automated countOrdered By: Michele Knight on 74-00-3636Ublqqafhrz (Bld) [Volume fraction]26.3 %Low38.8-50.0[facility] HospitalComment on above: Performed By: #### CBC ####[place] [id number] USAHemoglobin [Mass/volume] in BloodOrdered By: Michele Knight on 48-24-2405Coxzfdnwxk (Bld) [Mass/Vol]8.6 g/dLLow13.0-17.0[facility] HospitalComment on above:Performed By: #### CBC ####[place] [id number] USALeukocytes [#/volume] corrected for nucleated erythrocytes in Blood by Automated counOrdered By: Michele Knight on 51-66-7645OCG corrected for nucl RBC Auto (Bld) [#/Vol]3.6 10*3/uLLow4.1-10.5FJoint Township District Memorial HospitalLeukocytes [#/volume] in Blood by Automated countOrdered By: Michele Knight on 07-82-1117IKH (Bld) [#/Vol] 3.6 10*3/uLLow4.1-10.5FJoint Township District Memorial HospitalComment on above: Performed By: #### CBC ####[place] [id number] USALymphocytes [#/volume] in Blood by Automated count Ordered By: Michele Knight on 47-61-2213Xchrcqovskp (Bld) [#/Vol]0.7 10*3/uLLow 1.00-4.8[facility] HospitalComment on above:Performed By: #### CBC ####[place] [id number] [place] Lymphocytes/100 leukocytes in Blood by Automated countOrdered By: Michele Knight on 94-64-4317Brqcmsoimto/100 WBC (Bld)18.6 %Normal.[facility] HospitalComment on above:Performed By: #### CBC ####[place] [id number] [facility]ENTERMCH [Entitic mass] by Automated count Ordered By: Michele Knight on 75-36-1181DPS (RBC) [Entitic mass]28.6 pgNormal 27.5-35.2FJoint Township District Memorial HospitalComment on above:Performed By: #### CBC ####[address] MCHC Auto (RBC) [Mass/Vol]Ordered By: Michele Knight on 64-51-3585NZBY (RBC) [Mass/Vol]32.6 g/dL32.5-35.6FJoint Township District Memorial HospitalMCV [Entitic volume] by Automated countOrdered By: Michele Knight on 34-36-8986KTC (RBC) [Entitic vol]87.8 mJHduegk82.5-101[facility] HospitalComment on above:Performed By: #### CBC ####[place] [id number] USAMonocytes [#/volume] in Blood by Automated count Ordered By: Michele Knight on 98-46-0331Payqrpxar (Bld) [#/Vol]0.3 10*3/uLNormal 0.0-0.8[facility] HospitalComment on above:Performed By: #### CBC ####[place] [id number] [place] Monocytes/100 leukocytes in Blood by Automated countOrdered By: Michele Knight on 66-30-9410Pofahjspy/100 WBC (Bld)8.6 %Normal.[facility] Comment on above:Performed By: #### CBC ####[place] [id number] USANeutrophils [#/volume] in Blood by Automated countOrdered By: Michele Knight on 79-21-8354Nlhwfqgyhde (Bld) [#/Vol]2.4 10*3/uL Normal1.8-7.7FJoint Township District Memorial HospitalComment on above:Performed By: #### CBC ####[address] [address] USANeutrophils/100 leukocytes in Blood by Automated countOrdered By: Michele Knight on 24-44-0211Emkymktmbfq/100 WBC (Bld)65.6 %Normal.[facility] HospitalComment on above:Performed By: #### CBC ####[address] [address] USANucleated erythrocytes [Presence] in Blood by Automated countOrdered By: Michele Knight on 12-18-2024 Nucleated RBC Auto Ql (Bld)0.0 /100{WBC}0-0.5FJoint Township District Memorial Hospital Platelet mean volume [Entitic volume] in Blood by Automated countOrdered By: Michele Knight on 61-53-6399Gtvykrsv mean volume (Bld) [Entitic vol]7.4 fLNormal 6.6-10.1FJoint Township District Memorial HospitalComment on above:Performed By: #### CBC ####[address] [address] [place] Platelets [#/volume] in Blood by Automated countOrdered By: Michele Knight on 87-45-8655Dpcrbbkuf (Bld) [#/Vol]262 10*3/kSPktmjh822-295ZciusxkrfSalem City HospitalComment on above:Performed By: #### CBC ####[address] [address] USABasic Metabolic Panelon 04-57-3886Mbjcpdqcex Clr Calc Owuvyyxo32.08[facility] Comment on above:Result Comment: PERFORMED BY:[address] [place], [place] [phone] MEDICAL DIRECTORMARY SONI M.D.Performed By: #### BMP, CBC ####[address] [address] USAGFR/1.73 sq M.predicted MDRD (S/P/Bld) [Vol rate/Area]mL/min/{1.73_m2}NormalThe [facility] Comment on above:Performed By: #### BMP, CBC ####[address] [address] USACalcium [Mass/volume] in Serum or PlasmaOrdered By: Akash Mccartney on 45-51-6418Brekbii [Mass/Vol]8.4 mg/dL Low8.6-10.3FJoint Township District Memorial HospitalComment on above:Performed By: #### BMP, CBC ####[address] [address] USACapillary blood glucose measurement by glucometer (mass/volume)Ordered By: Akash Mccartney on 38-64-0162Xldtljh [Mass/Vol]108 mg/dLNormalSalem City HospitalComment on above:Random Glucose Reference Range is dependent on time and content of last meal. Glucose of more than 200 mg/dL in a nonstressed, ambulatory subject supports the diagnosis of Diabetes Mellitus. Result Comment: Random Glucose Reference Range is dependent on time and content of last meal. Glucose of more than 200 mg/dL in a nonstressed, ambulatory subject supports the diagnosis of Diabetes Mellitus.Performed By: #### GLULS ####Point of Care testing,Carbon dioxide, total [Moles/volume] in Serum or PlasmaOrdered By: Akash Mccartney on 71-23-8461ME8 [Moles/Vol]26.3 mmol/L Ubmbmr60.0-31.0[facility] HospitalComment on above:Performed By: #### BMP, CBC ####[address] [address] USAChloride [Moles/volume] in Serum or PlasmaOrdered By: Akash Mccartney on 19-05-7950Wripsxpx [Moles/Vol]103 mmol/GZtuufi60-396GzqlrxyfwSalem City HospitalComment on above:Performed By: #### BMP, CBC ####[address] [address] [facility] Complete Blood Count Auto Diffon [id number] (Bld) [#/Vol]0.0 10*3/uL Normal0.0-0.2[facility] Physician GroupComment on above:Result Comment: PERFORMED BY:[address] [place], [place] [id number] MEDICAL DIRECTORMARY SONI M.D.Performed By: #### BMP, CBC ####[address] [address] USABasophils/100 WBC (Bld)0.8 %Normal.[facility] Physician GroupComment on above:Performed By: #### BMP, CBC ####[address] [address] USAEosinophils (Bld) [#/Vol]0.2 10*3/uLNormal 0.0-0.45[facility] Physician GroupComment on above:Performed By: #### BMP, CBC ####[address] [address] [place] Eosinophils/100 WBC (Bld)6.2 %Normal.[facility] Physician GroupComment on above:Performed By: #### BMP, CBC ####[address] [address] USAErythrocyte distribution width (RBC) [Ratio]18.1 % High12.0-14.8[facility] Physician GroupComment on above:Performed By: #### BMP, CBC ####[address] [address] USAHematocrit (Bld) [Volume fraction]24.1 %Low38.8-50.0[facility] Physician GroupComment on above:Performed By: #### BMP, CBC ####[address] [address] USAHemoglobin (Bld) [Mass/Vol]7.9 g/dLLow 13.0-17.0[facility] Physician GroupComment on above:Performed By: #### BMP, CBC ####[place] [address] [place] Lymphocytes (Bld) [#/Vol]0.6 10*3/uLLow1.00-4.8[facility] Comment on above:Performed By: #### BMP, CBC ####[place] [address] USALymphocytes/100 WBC (Bld)17.9 %Normal. [facility] Physician GroupComment on above:Performed By: #### BMP, CBC ####[address]H (RBC) [Entitic mass]29.0 fdYgggig29.5-35.2[facility] Physician GroupComment on above:Performed By: #### BMP, CBC ####[address]V (RBC) [Entitic vol]87.9 dJUbhzkq15.5-101 [facility] Physician GroupComment on above:Performed By: #### BMP, CBC ####[place] [address] USAMean Corpuscular HGB Conc33.0 g/wQDudktw54.5-35.6[facility] Physician GroupComment on above:Performed By: #### BMP, CBC ####[place] [address] USAMonocytes (Bld) [#/Vol]0.4 10*3/uLNormal 0.0-0.8[facility] Physician GroupComment on above:Performed By: #### BMP, CBC ####[place] [id number] [place] Monocytes/100 WBC (Bld)10.4 %Normal.[facility] Physician GroupComment on above:Performed By: #### BMP, CBC ####[place] [address] USANeutrophils (Bld) [#/Vol]2.2 10*3/uLNormal1.8-7.7[facility] GroupComment on above:Performed By: #### BMP, CBC ####[place] [address] [place] Neutrophils/100 WBC (Bld)64.7 %Normal.[facility]ician GroupComment on above:Performed By: #### BMP, CBC ####[place] [address] USANRBC%0.1 /100{WBC}Normal0-0.5[facility] Physician GroupComment on above:Performed By: #### BMP, CBC ####[place] [address] USAPlatelet mean volume (Bld) [Entitic vol]7.3 fLNormal6.6-10.1[facility] Physician GroupComment on above: Performed By: #### BMP, CBC ####[place] [address] USAPlatelets (Bld) [#/Vol]195 10*3/qEXmibxt534-609Prp [facility] Physician GroupComment on above:Performed By: #### BMP, CBC ####[place] [address] USARBC (Bld) [#/Vol]2.74 10*6/uLLow3.90-5.60[facility] Physician GroupComment on above:Performed By: #### BMP, CBC ####[place] [address] USAWBC (Bld) [#/Vol]3.4 10*3/uLLow4.1-10.5[facility] Physician GroupComment on above:Performed By: #### BMP, CBC ####[place] [address] USAWhite Blood Count3.4 [CFU]/mLLow4.1-10.5[facility] Physician GroupComment on above:Performed By: #### BMP, CBC ####[place] [address] USACreatinine [Mass/volume] in Serum or PlasmaOrdered By: Akash Mccartney on 08-24-8987Dktrrldhll [Mass/Vol]1.20 mg/dLNormal0.70-1.30[facility] HospitalComment on above:Performed By: #### BMP, CBC ####[facility] [address] [place] [address] [place] Glomerular filtration rate [Volume Rate/Area] in Serum, Plasma or Blood by CreatinineOrdered By: Akash Mccartney on 63-05-2766Oecrgttndk filtration rate [Volume Rate/Area] in Serum, Plasma or Blood by Creatinine> 60.0 mL/Min [facility] HospitalGlucose Poct Glucometerson 79-79-0412Uzvntui8 Glu2: Cleaned [facility] Physician GroupComment on above:Result Comment: PERFORMED BY:[address] [place], [place] [phone] MEDICAL MARY KATE SONI M.D.Performed By: #### GLULS ####Point of Care testing,Glucose [Mass/volume] in Serum or PlasmaOrdered By: Akash Mccartney on 92-00-9501Xsjlrdd [Mass/Vol]84 mg/dL Clhgna04-612XiydcljfeSalem City HospitalComment on above:ADA recommended reference rangeRandom Glucose Reference Range is dependent on time and content of last meal. Glucose of more than 200 mg/dL in a nonstressed, ambulatory subject supports the diagnosisof Diabetes Mellitus.Result Comment: Random Glucose Reference Range is dependent on time and content of last meal. Glucose of more than 200 mg/dL in a nonstressed, ambulatory subject supports the diagnosis of Diabetes Mellitus. ADA recommended reference rangePerformed By: #### BMP, CBC ####[facility] [address] [place] [address] USANo Panel InformationOrdered By: Akash Mccartney on 12-17-2024 Bedside Glucose CommentGlu2: cleaned [facility] HospitalGlu2: cleaned [facility] HospitalPharmacy Creatinine Clearance (Chem47.08[facility]47.08[facility] HospitalPotassium [Moles/volume] in Serum or PlasmaOrdered By: Akash Mccartney on 76-90-2620Ephoyzrla [Moles/Vol]3.8 mmol/LNormal3.5-5.1FJoint Township District Memorial HospitalComment on above:Performed By: #### BMP, CBC ####[place] [place] [address] USASerum or plasma anion gap determinationOrdered By: Akash Mccartney on 57-36-2373Bucbw gap [Moles/Vol]9.5 mmol/LNormal6.0-15.0[facility] HospitalComment on above:Performed By: #### BMP, CBC ####[address] [place] [address] USASodium [Moles/volume] in Serum or PlasmaOrdered By: Akash Mccartney on 61-45-9364Iewcxd [Moles/Vol]135 mmol/HDsv262-865YkpivkxytSalem City HospitalComment on above:Performed By: #### BMP, CBC ####[address] [address] USAUrea nitrogen [Mass/volume] in Serum or PlasmaOrdered By: Akash Mccartney on 94-33-9775Hiwt nitrogen [Mass/Vol]20 mg/dLNormal7-25[facility] HospitalComment on above:Performed By: #### BMP, CBC ####[address] [place] [address] USAGlucose Poct Glucometerson 39-28-2936Vevtaig [Mass/Vol]157 mg/dLNoCritical access hospital Physician GroupComment on above:Result Comment: Random Glucose Reference Range is dependent on time and content of last meal. Glucose of more than 200 mg/dL in a nonstressed, ambulatory subject supports the diagnosis of Diabetes Mellitus.PERFORMED BY:[place] [address] [place], [place] [phone] MEDICAL DIRECTORMARIO S NAE M.D.Performed By: #### GLULS ####Point of Care testing,Alanine aminotransferase [Enzymatic activity/volume] in Serum or PlasmaOrdered By: Akash Mccartney on 12-15-2024 ALT [Catalytic activity/Vol]10 U/LNormal7-52[facility] Comment on above:Performed By: #### CMP, CBC ####[address] [place] [address] USAAlbumin [Mass/volume] in Serum or Plasma by Bromocresol green (BCG) dye binding methoOrdered By: Akash Mccartney on 55-14-2838Encntfn BCG dye [Mass/Vol]3.4 g/dLLow3.5-5.7FJoint Township District Memorial HospitalAlkaline phosphatase [Enzymatic activity/volume] in Serum or PlasmaOrdered By: Akash Mccartney on 05-68-0766UKX [Catalytic activity/Vol]99 U/NRvmdxo47-459CivtwbjzsSalem City HospitalComment on above:Performed By: #### CMP, CBC ####[place] [id number] USAAspartate aminotransferase [Enzymatic activity/volume] in Serum or PlasmaOrdered By: Akash Mccartney on 12-15-2024 AST [Catalytic activity/Vol]23 U/XTthcya81-92QjuqaxjbbSalem City Hospital Comment on above:Performed By: #### CMP, CBC ####[place] [address] USABilirubin.total [Mass/volume] in Serum or PlasmaOrdered By: Akash Mccartney on 34-31-6148Kbwgxohvv [Mass/Vol]0.8 mg/dLNormal0.3-1.0[facility] HospitalComment on above:Performed By: #### CMP, CBC ####[place] [place] [address] USAComplete Blood Count Auto Diffon 12-79-5614Oqdyxsdap (Bld) [#/Vol] 0.0 10*3/uLNormal0.0-0.2[facility]ician GroupComment on above:Result Comment: PERFORMED BY:[address] [place], [place] [phone] MEDICAL DIRECTORMARY SONI M.D.Performed By: #### CMP, CBC ####[address] [address] USABasophils/100 WBC (Bld)0.5 %Normal.[facility] Comment on above:Performed By: #### CMP, CBC ####[address] [address] USAEosinophils (Bld) [#/Vol]0.2 10*3/uL Normal0.0-0.45[facility] Physician GroupComment on above:Performed By: #### CMP, CBC ####[address] [address] USAEosinophils/100 WBC (Bld)4.6 %Normal.[facility] Physician GroupComment on above:Performed By: #### CMP, CBC ####[address] [address] USAErythrocyte distribution width (RBC) [Ratio]18.3 % High12.0-14.8[facility] Physician GroupComment on above:Performed By: #### CMP, CBC ####[address] [address] USAHematocrit (Bld) [Volume fraction]29.0 %Low38.8-50.0[facility] Physician GroupComment on above:Performed By: #### CMP, CBC ####[address] [address] USAHemoglobin (Bld) [Mass/Vol]9.5 g/dLLow 13.0-17.0[facility]ician GroupComment on above:Performed By: #### CMP, CBC ####[address] [address] [place] Lymphocytes (Bld) [#/Vol]0.4 10*3/uLLow1.00-4.8[facility] Comment on above:Performed By: #### CMP, CBC ####[place] [address] USALymphocytes/100 WBC (Bld)7.7 %Normal. [facility]ician GroupComment on above:Performed By: #### CMP, CBC ####[address] StreetMCH (RBC) [Entitic mass]29.0 ulAjhxpw40.5-35.2[facility]ician GroupComment on above:Performed By: #### CMP, CBC ####[address] StreetMCV (RBC) [Entitic vol]88.4 eMWuyqup18.5-101 [facility]ician GroupComment on above:Performed By: #### CMP, CBC ####[place] [address] USAMean Corpuscular HGB Conc32.8 g/nGNoyngw84.5-35.6[facility]ician GroupComment on above:Performed By: #### CMP, CBC ####[place] [address] USAMonocytes (Bld) [#/Vol]0.2 10*3/uLNormal 0.0-0.8[facility]ician GroupComment on above:Performed By: #### CMP, CBC ####[place] [address] [place] Monocytes/100 WBC (Bld)3.3 %Normal.[facility]ician GroupComment on above:Performed By: #### CMP, CBC ####[place] [address] USANeutrophils (Bld) [#/Vol]4.4 10*3/uLNormal1.8-7.7[facility]ician GroupComment on above:Performed By: #### CMP, CBC ####[place] [address] [place] Neutrophils/100 WBC (Bld)83.9 %Normal.[facility]ician GroupComment on above:Performed By: #### CMP, CBC ####[place] [address] USANRBC%0.2 /100{WBC}Normal0-0.5[facility]ician GroupComment on above:Performed By: #### CMP, CBC ####[place] [address] USAPlatelet mean volume (Bld) [Entitic vol]7.5 fLNormal6.6-10.1[facility]ician GroupComment on above: Performed By: #### CMP, CBC ####[place] [address] USAPlatelets (Bld) [#/Vol]280 10*3/mFHioyur171-430Ygm [facility] Physician GroupComment on above:Performed By: #### CMP, CBC ####[place] [address] USARBC (Bld) [#/Vol]3.27 10*6/uLLow3.90-5.60[facility]ician GroupComment on above:Performed By: #### CMP, CBC ####[place] [address] USAWBC (Bld) [#/Vol]5.2 10*3/uLNormal4.1-10.5[facility]ician GroupComment on above:Performed By: #### CMP, CBC ####[place] [address] USAWhite Blood Count5.2 [CFU]/mLNormal4.1-10.5[facility]ician GroupComment on above:Performed By: #### CMP, CBC ####[place] [address] USAComprehensive Metabolic Panelon 58-91-0833Eyigfny [Mass/Vol]3.4 g/dLLow3.5-5.7[facility]ician GroupComment on above: Performed By: #### CMP, CBC ####[address] [address] USAAnion gap [Moles/Vol]10.3 mmol/LNormal6.0-15.0[facility]ician GroupComment on above:Performed By: #### CMP, CBC ####[address] [address] USACalcium [Mass/Vol]8.9 mg/dLNormal8.6-10.3[facility] GroupComment on above: Performed By: #### CMP, CBC ####[address] [address] USAChloride [Moles/Vol]103 mmol/IIzwccq94-846Ynz [facility]ician GroupComment on above:Performed By: #### CMP, CBC ####[place] [address] USACO2 [Moles/Vol]26.6 mmol/JZlwdjc21.0-31.0[facility] GroupComment on above:Performed By: #### CMP, CBC ####[place] [address] USACreatinine [Mass/Vol]1.21 mg/dLNormal0.70-1.30[facility] GroupComment on above:Performed By: #### CMP, CBC ####[address] [address] [place] Creatinine Clr Calc Mvlansbn46.69NormalThe [facility] Physician GroupComment on above:Result Comment: PERFORMED BY:[address] [place], [place] [phone] MEDICAL MARY KATE SONI M.D.Performed By: #### CMP, CBC ####[address] [address] USAGFR/1.73 sq M.predicted MDRD (S/P/Bld) [Vol rate/Area]59.409 mL/min/{1.73_m2}NormalThe [facility] Physician GroupComment on above:Performed By: #### CMP, CBC ####[address] [place] [address] USAGlucose [Mass/Vol]83 mg/pGBmmiok38-598Vhg [facility] GroupComment on above:Result Comment: Random Glucose Reference Range is dependent on time and content of last meal. Glucose of more than 200 mg/dL in a nonstressed, ambulatory subject supports the diagnosis of Diabetes Mellitus. ADA recommended reference rangePerformed By: #### CMP, CBC ####[address] [address] USAPotassium [Moles/Vol] 3.9 mmol/LNormal3.5-5.1[facility]ician [facility] HospitalComment on above:Performed By: #### CMP, CBC ####[place] [address] USASodium [Moles/Vol]136 mmol/YDeovqb880-418Zyy [facility] HospitalComment on above:Performed By: #### CMP, CBC ####[place] [address] USAUrea nitrogen [Mass/Vol]16 mg/dL Normal7-25[facility] HospitalComment on above:Performed By: #### CMP, CBC ####[place] [address] [place] Protein [Mass/volume] in Serum or PlasmaOrdered By: Akash Mccartney on 18-13-0590Sqefcsd [Mass/Vol]6.6 g/dLNormal6.4-8.9[facility] HospitalComment on above:Performed By: #### CMP, CBC ####[place] [address] USASerum globulin measurement by calculation (mass/volume)Ordered By: Akash Mccartney on 23-17-0753Qobwzedb (S) [Mass/Vol]3.2 g/dLNormalSalem City HospitalComment on above: Performed By: #### CMP, CBC ####[place] [address] USASerum or plasma albumin/globulin mass ratioOrdered By: Akash Mccartney on 84-87-5401Iomoeqy/Globulin [Mass ratio]1.1 {ratio} NormalSalem City HospitalComment on above:Performed By: #### CMP, CBC ####[place] [address] [facility] Complete Blood Count Auto Diffon 19-22-5047Uwewpmire (Bld) [#/Vol]0.0 10*3/uL Normal0.0-0.2[facility] GroupComment on above:Result Comment: PERFORMED BY:[address] [place], [place] [phone] MEDICAL DIRECTORMARY SONI M.D.Performed By: #### CBC, CMP ####[place] [address] USABasophils/100 WBC (Bld)0.7 %Normal.[facility] Physician GroupComment on above:Performed By: #### CBC, CMP ####[place] [address] USAEosinophils (Bld) [#/Vol]0.3 10*3/uLNormal 0.0-0.45[facility]ician [facility] HospitalComment on above:Performed By: #### CBC, CMP ####[place] [address] [place] Eosinophils/100 WBC (Bld)5.4 %Normal.[facility] GroupComment on above:Performed By: #### CBC, CMP ####[place] [address] USAErythrocyte distribution width (RBC) [Ratio]18.3 % High12.0-14.8[facility] Physician GroupComment on above:Performed By: #### CBC, CMP ####[place] [address] USAHematocrit (Bld) [Volume fraction]25.1 %Low38.8-50.0[facility] Physician GroupComment on above:Performed By: #### CBC, CMP ####[place] [address] USAHemoglobin (Bld) [Mass/Vol]8.2 g/dLLow 13.0-17.0[facility] Physician GroupComment on above:Performed By: #### CBC, CMP ####[place] [address] [place] Lymphocytes (Bld) [#/Vol]1.2 10*3/uLNormal1.00-4.8[facility] Comment on above:Performed By: #### CBC, CMP ####[place] [address] USALymphocytes/100 WBC (Bld)22.4 %Normal. [facility] Physician GroupComment on above:Performed By: #### CBC, CMP ####[place] [address] USAMCH (RBC) [Entitic mass]28.5 itBnzsix88.5-35.2[facility] Physician GroupComment on above:Performed By: #### CBC, CMP ####[place] [address] USAMCV (RBC) [Entitic vol]87.6 sCOwowlz63.5-101 [facility]ician GroupComment on above:Performed By: #### CBC, CMP ####[place] [address] USAMean Corpuscular HGB Conc32.5 g/wROmcreo09.5-35.6[facility] Physician GroupComment on above:Performed By: #### CBC, CMP ####[place] [address] USAMonocytes (Bld) [#/Vol]0.5 10*3/uLNormal 0.0-0.8[facility]ician GroupComment on above:Performed By: #### CBC, CMP ####[place] [address] [place] Monocytes/100 WBC (Bld)8.9 %Normal.[facility]ician GroupComment on above:Performed By: #### CBC, CMP ####[address] [address] USANeutrophils (Bld) [#/Vol]3.3 10*3/uLNormal1.8-7.7[facility]ician GroupComment on above:Performed By: #### CBC, CMP ####[place] [address] [place] Neutrophils/100 WBC (Bld)62.6 %Normal.[facility]ician GroupComment on above:Performed By: #### CBC, CMP ####[place] [address] USANRBC%0.1 /100{WBC}Normal0-0.5[facility] Physician GroupComment on above:Performed By: #### CBC, CMP ####[place] [address] USAPlatelet mean volume (Bld) [Entitic vol]7.7 fLNormal6.6-10.1[facility]ician GroupComment on above: Performed By: #### CBC, CMP ####[address] [address] USAPlatelets (Bld) [#/Vol]230 10*3/nVFsyuqs585-728Kyu [facility]ician GroupComment on above:Performed By: #### CBC, CMP ####[place] [address] USARBC (Bld) [#/Vol]2.87 10*6/uLLow3.90-5.60[facility]ician GroupComment on above:Performed By: #### CBC, CMP ####[address] [address] USAWBC (Bld) [#/Vol]5.3 10*3/uLNormal4.1-10.5[facility] Physician GroupComment on above:Performed By: #### CBC, CMP ####[place] [address] USAWhite Blood Count5.3 [CFU]/mLNormal4.1-10.5[facility]ician GroupComment on above:Performed By: #### CBC, CMP ####[place] [address] USAComprehensive Metabolic Panelon 90-05-4282Zznjrqk [Mass/Vol]3.1 g/dLLow3.5-5.7[facility]ician GroupComment on above: Performed By: #### CBC, CMP ####[place] [address] USAAlbumin/Globulin [Mass ratio]1.1 {ratio}NormalThe [facility] Physician GroupComment on above:Performed By: #### CBC, CMP ####[place] [address] USAALP [Catalytic activity/Vol]85 U/DSjzoie16-772Ygy [facility] Physician GroupComment on above:Performed By: #### CBC, CMP ####[place] [address] USAALT [Catalytic activity/Vol]10 U/LNormal7-52 [facility] Physician GroupComment on above:Performed By: #### CBC, CMP ####[place] [address] USAAnion gap [Moles/Vol]11.5 mmol/LNormal6.0-15.0[facility]ician GroupComment on above:Performed By: #### CBC, CMP ####[place] [address] USAAST [Catalytic activity/Vol]25 U/KDwfueg70-07Gku [facility] Physician GroupComment on above:Performed By: #### CBC, CMP ####[place] [address] [place] Bilirubin [Mass/Vol]0.6 mg/dLNormal0.3-1.0[facility]ician GroupComment on above:Performed By: #### CBC, CMP ####[place] [address] USACalcium [Mass/Vol]8.3 mg/dLLow8.6-10.3[facility] Physician GroupComment on above:Performed By: #### CBC, CMP ####[address] [address] [place] Chloride [Moles/Vol]104 mmol/VDqaafw92-647Xgu [facility] Physician GroupComment on above:Performed By: #### CBC, CMP ####[address] [place] [address] USACO2 [Moles/Vol]25.5 mmol/CEtghnl03.0-31.0[facility] Physician GroupComment on above:Performed By: #### CBC, CMP ####[address] [address] [place] Creatinine [Mass/Vol]1.15 mg/dLNormal0.70-1.30[facility] Comment on above:Performed By: #### CBC, CMP ####[address] [address] USACreatinine Clr Calc Cquffdks13.10 NormalThe [facility] Physician GroupComment on above:Result Comment: PERFORMED BY:[address] [place], [place] [phone] MEDICAL DIRECTORMARY SONI M.D.Performed By: #### CBC, CMP ####[address] [address] [place] GFR/1.73 sq M.predicted MDRD (S/P/Bld) [Vol rate/Area]mL/min/{1.73_m2}NormalThe [facility] Physician GroupComment on above:Performed By: #### CBC, CMP ####[address] [address] [place] Globulin (S) [Mass/Vol]2.8 g/dLNormalThe [facility] Physician GroupComment on above:Performed By: #### CBC, CMP ####[address] [address] USAGlucose [Mass/Vol]81 mg/sBVskhpk11-692Ick [facility] Physician GroupComment on above:Result Comment: Random Glucose Reference Range is dependent on time and content of last meal. Glucose of more than 200 mg/dL in a nonstressed, ambulatory subject supports the diagnosis of Diabetes Mellitus. ADA recommended reference rangePerformed By: #### CBC, CMP ####[address] [place] [address] USAPotassium [Moles/Vol] 4.0 mmol/LNormal3.5-5.1[facility] Physician [facility] HospitalComment on above:Performed By: #### CBC, CMP ####[address] [place] [address] USAProtein [Mass/Vol]5.9 g/dLLow6.4-8.9[facility] Comment on above:Performed By: #### CBC, CMP ####[address] [address] USASodium [Moles/Vol]137 mmol/LNormal 136-145The [facility] Physician GroupComment on above:Performed By: #### CBC, CMP ####[address] [address] USAUrea nitrogen [Mass/Vol]16 mg/dLNormal7-25[facility] Physician [facility] HospitalComment on above:Performed By: #### CBC, CMP ####[address] [address] USAECH echo transthoracicon 54-28-4113SGS echo transthoracicNoCritical access hospital Physician HzzenZ7N with Estimated Average Gluon 93-30-2980Egytpoy [Mass/Vol]111 mg/dLNoCritical access hospital Physician [facility] HospitalComment on above:Result Comment: PERFORMED BY:[address] [place], [place] [phone] MEDICAL DIRECTORMARY SONI M.D.Performed By: #### ELDER, PTT, CMP, FE and TIBC, PT, A1C WTH eA, LIPID, MG, [id number], HS TROP, CBC ####[address] [address] USABlood estimated average glucose determination by estimation from glycated hemoglobinOrdered By: Akash Mccartney on 12-13-2024 Average glucose Estimated from glycated hemoglobin (Bld) [Mass/Vol]111 mg/dL [facility] HospitalCholesterol [Mass/volume] in Serum or Plasma Ordered By: Akash Mccartney on 43-62-1674Bujkegtabep [Mass/Vol]89 mg/dLLow 140-200[facility] HospitalComment on above:Chol less than 200 mg/dl low riskChol 201-239 mg/dl borderline riskChol 240 mg/dl and greater high riskOrder Comment: FASTING YResult Comment: Chol less than 200 mg/dl low risk Chol 201-239 mg/dl borderline risk Chol 240 mg/dland greater high riskPerformed By: #### ELDER, PTT, CMP, FE and TIBC, PT, A1C WTH eA, LIPID, MG, [id number], HS TROP, CBC ####[facility] [id number] [place] [address] USACholesterol in HDL [Mass/volume] in Serum or PlasmaOrdered By: Akash Mccartney on 58-26-0743Axbgbenumjo in HDL [Mass/Vol]43 mg/aJCtjuua37-64GkhmtlxhhSalem City HospitalComment on above:HDL CHOL ATP-III CLASSIFICATION Cardiovascular RiskHDL > or equal to 60 mg/dL LOWHDL < 40 mg/dL HIGHOrder Comment: FASTING YResult Comment: HDL CHOL ATP-III CLASSIFICATION Cardiovascular Risk HDL > or equal to 60 mg/dL LOW HDL < 40 mg/dL HIGHPerformed By: #### ELDER, PTT, CMP, FE and TIBC, PT, A1C WTH eA, LIPID, MG, [id number], HS TROP, CBC ## ##[facility] [id number] [place] [address] [place] Cholesterol in LDL Calc [Mass/Vol]Ordered By: Akash Mccartney on 12-13-2024 Cholesterol in LDL [Mass/Vol]35 mg/dL0-100[facility] Comment on above:LDL ATP III CLASSIFICATIONLDL less than 100 mg/dL OptimalLDL 100-129 mg/dL Near or above cajopkvCXH093-221 mg/dL Borderline highLDL 160-189 mg/dL HighLDL greater than 189 mg/dL Very highCholesterol in VLDL Calc [Mass/Vol]Ordered By: Akash Mccartney on 05-60-0288Adbihjexdty in VLDL [Mass/Vol]11 mg/dLSalem City HospitalComplete Blood Count Auto Diffon 29-74-0895Ohodxfjcl (Bld) [#/Vol]0.0 10*3/uLNormal0.0-0.2[facility] Physician GroupComment on above:Result Comment: PERFORMED BY:[address] [place], [place] [phone] MEDICAL DIRECTORMARY SONI M.D.Performed By: #### ELDER, PTT, CMP, FE and TIBC, PT, A1C WTH eA, LIPID, MG, [id number], HS TROP, CBC ####[address] [address] USABasophils/100 WBC (Bld)0.8 %Normal.[facility] Physician GroupComment on above:Performed By: #### ELDER, PTT, CMP, FE and TIBC, PT, A1C WTH eA, LIPID, MG, [id number], HS TROP, CBC ####[address] [address] USAEosinophils (Bld) [#/Vol]0.4 10*3/uLNormal0.0-0.45[facility] Physician GroupComment on above: Performed By: #### ELDER, PTT, CMP, FE and TIBC, PT, A1C WTH eA, LIPID, MG, [id number], HS TROP, CBC ####[address] [address] USAEosinophils/100 WBC (Bld)7.4 %Normal.[facility] Physician GroupComment on above:Performed By: #### ELDER, PTT, CMP, FE and TIBC, PT, A1C WTH eA, LIPID, MG, [id number], HS TROP, CBC ####[address] [address] USAErythrocyte distribution width (RBC) [Ratio]18.2 %High12.0-14.8The [facility] Physician GroupComment on above: Performed By: #### ELDER, PTT, CMP, FE and TIBC, PT, A1C WTH eA, LIPID, MG, [id number], HS TROP, CBC ####[place] [address] USAHematocrit (Bld) [Volume fraction]23.9 %Low38.8-50.0 [facility] Physician GroupComment on above:Performed By: #### ELDER, PTT, CMP, FE and TIBC, PT, A1C WTH eA, LIPID, MG, [id number], HS TROP, CBC ####[place] [address] USAHemoglobin (Bld) [Mass/Vol]7.9 g/dLLow13.0-17.0[facility] Physician GroupComment on above: Performed By: #### ELDER, PTT, CMP, FE and TIBC, PT, A1C WTH eA, LIPID, MG, [id number], HS TROP, CBC ####[place] [address] USALymphocytes (Bld) [#/Vol]1.0 10*3/uLNormal1.00-4.8 [facility] Physician GroupComment on above:Performed By: #### ELDER, PTT, CMP, FE and TIBC, PT, A1C WTH eA, LIPID, MG, [id number], HS TROP, CBC ####[place] [address] USALymphocytes/100 WBC (Bld)19.1 %Normal.[facility] Physician GroupComment on above:Performed By: #### ELDER, PTT, CMP, FE and TIBC, PT, A1C WTH eA, LIPID, MG, [id number], HS TROP, CBC ####[place] [address] USAMCH (RBC) [Entitic mass]29.1 zxXcwtpt07.5-35.2[facility] Physician GroupComment on above:Performed By: #### ELDER, PTT, CMP, FE and TIBC, PT, A1C WTH eA, LIPID, MG, [id number], HS TROP, CBC ####[place] [address] USAMCV (RBC) [Entitic vol]88.3 vNAalrvt45.5-101The [facility] Physician GroupComment on above:Performed By: #### ELDER, PTT, CMP, FE and TIBC, PT, A1C WTH eA, LIPID, MG, [id number], HS TROP, CBC ####[place] [address] USAMean Corpuscular HGB Conc32.9 g/jPPuppjy34.5-35.6[facility] Physician GroupComment on above: Performed By: #### ELDER, PTT, CMP, FE and TIBC, PT, A1C WTH eA, LIPID, MG, [id number], HS TROP, CBC ####[place] [address] USAMonocytes (Bld) [#/Vol]0.4 10*3/uLNormal0.0-0.8[facility] Physician GroupComment on above:Performed By: #### ELDER, PTT, CMP, FE and TIBC, PT, A1C WTH eA, LIPID, MG, [id number], HS TROP, CBC ####[place] [address] USAMonocytes/100 WBC (Bld)7.4 %Normal.[facility] Physician GroupComment on above:Performed By: #### ELDER, PTT, CMP, FE and TIBC, PT, A1C WTH eA, LIPID, MG, [id number], HS TROP, CBC ####[place] [address] [place] Neutrophils (Bld) [#/Vol]3.4 10*3/uLNormal1.8-7.7[facility] Comment on above:Performed By: #### ELDER, PTT, CMP, FE and TIBC, PT, A1C WTH eA, LIPID, MG, [id number], HS TROP, CBC ####[place] [address] USANeutrophils/100 WBC (Bld)65.3 %Normal.[facility] Physician GroupComment on above:Performed By: #### ELDER, PTT, CMP, FE and TIBC, PT, A1C WTH eA, LIPID, MG, [id number], HS TROP, CBC ####[place] [address] USANRBC%0.0 /100{WBC}Normal0-0.5 [facility] Physician GroupComment on above:Performed By: #### ELDER, PTT, CMP, FE and TIBC, PT, A1C WTH eA, LIPID, MG, [id number], HS TROP, CBC ####[place] [address] USAPlatelet mean volume (Bld) [Entitic vol]7.8 fLNormal6.6-10.1[facility] Physician GroupComment on above:Performed By: #### ELDER, PTT, CMP, FE and TIBC, PT, A1C WTH eA, LIPID, MG, [id number], HS TROP, CBC ####[place] [address] USAPlatelets (Bld) [#/Vol]218 10*3/lIXobmsd363-243Ndg [facility] Physician GroupComment on above:Performed By: #### ELDER, PTT, CMP, FE and TIBC, PT, A1C WTH eA, LIPID, MG, [id number], HS TROP, CBC ####[place] [address] USARBC (Bld) [#/Vol]2.71 10*6/uLLow3.90-5.60[facility] Physician GroupComment on above:Performed By: #### ELDER, PTT, CMP, FE and TIBC, PT, A1C WTH eA, LIPID, MG, [id number], HS TROP, CBC ####[place] [address] USAWBC (Bld) [#/Vol]5.2 10*3/uLNormal4.1-10.5[facility] Physician GroupComment on above:Performed By: #### ELDER, PTT, CMP, FE and TIBC, PT, A1C WTH eA, LIPID, MG, [id number], HS TROP, CBC ####[address] [address] USAWhite Blood Count5.2 [CFU]/mLNormal4.1-10.5[facility] Physician GroupComment on above:Performed By: #### ELDER, PTT, CMP, FE and TIBC, PT, A1C WTH eA, LIPID, MG, [id number], HS TROP, CBC ####[place] [address] USAComprehensive Metabolic Panelon 94-77-6057Hlitutu [Mass/Vol]3.1 g/dLLow3.5-5.7[facility] Physician GroupComment on above:Order Comment: FASTING YPerformed By: #### ELDER, PTT, CMP, FE and TIBC, PT, A1C WTH eA, LIPID, MG, [id number], HS TROP, CBC ## ##[place] [address] [place] Albumin/Globulin [Mass ratio]1.1 {ratio}NormalThe [facility] Phys[facility] Group Comment on above:Order Comment: FASTING YPerformed By: #### ELDER, PTT, CMP, FE and TIBC, PT, A1C WTH eA, LIPID, MG, [id number], HS TROP, CBC ####[address] [address] USAALP [Catalytic activity/Vol]81 U/UWrutzw42-029Fve [facility] Physician GroupComment on above: Order Comment: FASTING YPerformed By: #### ELDER, PTT, CMP, FE and TIBC, PT, A1C WTH eA, LIPID, MG, [id number], HS TROP, CBC ####[address] [address] USAALT [Catalytic activity/Vol]11 U/L Normal7-52[facility] Physician GroupComment on above:Order Comment: FASTING Y Performed By: #### ELDER, PTT, CMP, FE and TIBC, PT, A1C WTH eA, LIPID, MG, [id number], HS TROP, CBC ####[address] [address] USAAnion gap [Moles/Vol]9.5 mmol/LNormal6.0-15.0[facility] Physician GroupComment on above:Order Comment: FASTING YPerformed By: #### ELDER, PTT, CMP, FE and TIBC, PT, A1C WTH eA, LIPID, MG, [id number], HS TROP, CBC ####[place] [address] USAAST [Catalytic activity/Vol]33 U/EMsbdab01-58Hhg [facility] Physician GroupComment on above:Order Comment: FASTING YPerformed By: #### ELDER, PTT, CMP, FE and TIBC, PT, A1C WTH eA, LIPID, MG, [id number], HS TROP, CBC ####[address] [address] USABilirubin [Mass/Vol]0.7 mg/dL Normal0.3-1.0[facility] Physician GroupComment on above:Order Comment: FASTING YPerformed By: #### ELDER, PTT, CMP, FE and TIBC, PT, A1C WTH eA, LIPID, MG, [id number], HS TROP, CBC ####[place] [address] USACalcium [Mass/Vol]8.5 mg/dLLow8.6-10.3[facility] Physician GroupComment on above:Order Comment: FASTING YPerformed By: #### ELDER, PTT, CMP, FE and TIBC, PT, A1C WTH eA, LIPID, MG, [id number], HS TROP, CBC ## ##[address] [address] USAChloride [Moles/Vol]106 mmol/DXyisjv89-533Ckp [facility] Physician GroupComment on above: Order Comment: FASTING YPerformed By: #### ELDER, PTT, CMP, FE and TIBC, PT, A1C WTH eA, LIPID, MG, [id number], HS TROP, CBC ####[place] [address] USACO2 [Moles/Vol]24.1 mmol/LNormal 21.0-31.0[facility] Physician GroupComment on above:Order Comment: FASTING Y Performed By: #### ELDER, PTT, CMP, FE and TIBC, PT, A1C WTH eA, LIPID, MG, [id number], HS TROP, CBC ####[place] [address] USACreatinine [Mass/Vol]1.05 mg/dLNormal0.70-1.30[facility] Physician GroupComment on above:Order Comment: FASTING YPerformed By: #### ELDER, PTT, CMP, FE and TIBC, PT, A1C WTH eA, LIPID, MG, [id number], HS TROP, CBC ####[address] Creatinine Clr Calc Uddpqfst62.26NoCritical access hospital Physician GroupComment on above:Order Comment: FASTING YPerformed By: #### ELDER, PTT, CMP, FE and TIBC, PT, A1C WTH eA, LIPID, MG, [id number], HS TROP, CBC ####[place] [address] USAGFR/1.73 sq M.predicted MDRD (S/P/Bld) [Vol rate/Area]mL/min/{1.73_m2}NormalThe [facility] Physician GroupComment on above:Order Comment: FASTING YPerformed By: #### ELDER, PTT, CMP, FE and TIBC, PT, A1C WTH eA, LIPID, MG, [id number], HS TROP, CBC ####[place] [address] [facility] CENTERGlobulin (S) [Mass/Vol]2.7 g/dLNormal [facility] Physician GroupComment on above:Order Comment: FASTING YPerformed By: #### ELDER, PTT, CMP, FE and TIBC, PT, A1C WTH eA, LIPID, MG, [id number], HS TROP, CBC ####[place] [address] USAGlucose [Mass/Vol]78 mg/dYRcufma03-232Wxg [facility] Physician GroupComment on above:Order Comment: FASTING YResult Comment: Random Glucose Reference Range is dependent on time and content of last meal. Glucose of more than 200 mg/dL in a nonstressed, ambulatory subject supports the diagnosis of Diabetes Mellitus. ADA recommended reference rangePerformed By: #### ELDER, PTT, CMP, FE and TIBC, PT, A1C WTH eA, LIPID, MG, [id number], HS TROP, CBC ####[place] [address] USAPotassium [Moles/Vol]3.6 mmol/LNormal3.5-5.1[facility] Physician GroupComment on above:Order Comment: FASTING YPerformed By: #### ELDER, PTT, CMP, FE and TIBC, PT, A1C WTH eA, LIPID, MG, [id number], HS TROP, CBC ####[place] [address] USAProtein [Mass/Vol]5.8 g/dLLow6.4-8.9[facility] Physician GroupComment on above:Order Comment: FASTING YPerformed By: #### ELDER, PTT, CMP, FE and TIBC, PT, A1C WTH eA, LIPID, MG, [id number], HS TROP, CBC ## ##[place] [address] USASodium [Moles/Vol]136 mmol/CSygcxy838-163Qlz [facility] Physician GroupComment on above: Order Comment: FASTING YPerformed By: #### ELDER, PTT, CMP, FE and TIBC, PT, A1C WTH eA, LIPID, MG, [id number], HS TROP, CBC ####[place] [address] USAUrea nitrogen [Mass/Vol]14 mg/dLNormal 7-25The [facility] Physician GroupComment on above:Order Comment: FASTING Y Performed By: #### ELDER, PTT, CMP, FE and TIBC, PT, A1C WTH eA, LIPID, MG, [id number], HS TROP, CBC ####[facility] [place] [address] USAFerritin [Mass/volume] in Serum or PlasmaOrdered By: Akash Mccartney on 54-36-4843Divlgxho [Mass/Vol]371.5 ng/uFZqbe42.9-336.2 [facility] HospitalComment on above:Order Comment: FASTING Y Performed By: #### ELDER, PTT, CMP, FE and TIBC, PT, A1C WTH eA, LIPID, MG, [id number], HS TROP, CBC ####[place] [address] [place] [address] USAFolate [Mass/volume] in Serum or PlasmaOrdered By: Akash Mccartney on 07-26-8288Zthnou [Mass/Vol]9.1 ng/mL>5.9[facility] HospitalComment on above:Folate reference range: >5.9 ng/mlThe WHO technical consultation on folate and vitamin i75ixjjtmplebhs has determined that folate concentrations lessthan 4 ng/ml are considered deficient.Hemoglobin A1c/Hemoglobin.total in BloodOrdered By: Akash Mccartney on 38-57-0770OzK8i (Bld) [Mass fraction]5.5 %Normal4.3-5.6FJoint Township District Memorial HospitalComment on above:Increased risk for diabetes: 5.7 - 6.4diabetes: >6.4glycemic control for adults with diabetes: <7.0Result Comment: Increased risk for diabetes: 5.7 - 6.4 diabetes: >6.4 glycemic control for adults with diabetes: <7.0 Performed By: #### ELDER, PTT, CMP, FE and TIBC, PT, A1C WTH eA, LIPID, MG, [id number], HS TROP, CBC ####[place] [address] [place] [address] USAINR in Platelet poor plasma by Coagulation assay Ordered By: Akash Mccartney on 88-30-1669NJX Coag (PPP) [Relative time]2.5 {INR}NormalSalem City HospitalComment on above:INR Therapeutic Range A) Pre- and Peroperative OAT started two weeks before surgery. NOT HIP SURGERY: 1.5 - 2.5 HIP SURGERY: 2 - 3B) Primary and secondary prevention of venous THROMBOSIS: 2 - 3C) Active venous thrombosis, pulmonary embolismand prevention of recurrent venous thrombosis: 2 - 3D) Prevention of arterial thromboembolismincluding patients with mechanical heart valves: 3 - 4.5Result Comment: INR Therapeutic Range A) Pre- and [...] patients with mechanical heart valves: 3 - 4.5Performed By: #### ELDER, PTT, CMP, FE and TIBC, PT, A1C WTH eA, LIPID, MG, [id number], HS TROP, CBC ####[place] [address] [place] [address] USAIron [Mass/volume] in Serum or PlasmaOrdered By: Akash Mccartney on 95-41-8372Caih [Mass/Vol]11 ug/oWQdv68-798AhkvosyhoSalem City HospitalComment on above:Order Comment: FASTING YPerformed By: #### ELDER, PTT, CMP, FE and TIBC, PT, A1C WTH eA, LIPID, MG, [id number], HS TROP, CBC ####[place] [address] [place] [address] [place] Iron and TIBC Profileon 12-13-2024% Iron Saturation5.4 %Qxt82-25Idr [facility] Physician GroupComment on above:Order Comment: FASTING YPerformed By: #### ELDER, PTT, CMP, FE and TIBC, PT, A1C WTH eA, LIPID, MG, [id number], HS TROP, CBC ## ##[facility] [place] [address] USATotal Iron Binding Hyfttjug282 ug/lAYrk194-164Qgu [facility] Physician GroupComment on above:Order Comment: FASTING YPerformed By: #### ELDER, PTT, CMP, FE and TIBC, PT, A1C WTH eA, LIPID, MG, [id number], HS TROP, CBC ####[place] [address] [place] [address] USALipid Panelon 56-17-4927ZJZ Cholesterol,Ejejfdikac49 mg/dLNormal0-100The [facility] Physician GroupComment on above:Order Comment: FASTING YResult Comment: LDL ATP III CLASSIFICATION LDL less than 100 mg/dL Optimal LDL 100-129 mg/dL Near or above optimal LDL 130-159 mg/dL Borderline high LDL 160-189 mg/dL High LDL greater than 189 mg/dL Very highPerformed By: #### ELDER, PTT, CMP, FE and TIBC, PT, A1C WTH eA, LIPID, MG, [id number], HS TROP, CBC ####[place] [address] [place] [address] USATriglyceride w/Ykxjel23 mg/dLNormal0-149The [facility] Physician GroupComment on above:Order Comment: FASTING YResult Comment: TRIG ATP III CLASSIFICATION TRIG less than 150 mg/dL Normal TRIG 150- 199 mg/dL Borderline high TRIG 200-500 mg/dL High TRIG greater than 500 mg/dL Very high Standard traceable to the Center for Disease Conrtrol and Prevention (CDC) test method.Performed By: #### ELDER, PTT, CMP, FE and TIBC, PT, A1C WTH eA, LIPID, MG, [id number], HS TROP, CBC ####[address] [address] USAVLDL YRWBEZQKYOV62 mg/dLNormalThe [facility] Physician GroupComment on above:Order Comment: FASTING YPerformed By: #### ELDER, PTT, CMP, FE and TIBC, PT, A1C WTH eA, LIPID, MG, [id number], HS TROP, CBC ## ##[address] [address] USAMagnesium [Mass/volume] in Serum or PlasmaOrdered By: Akash Mccartney on 12-13-2024 Magnesium [Mass/Vol]1.8 mg/dLLow1.9-2.7FJoint Township District Memorial HospitalComment on above:Order Comment: FASTING YPerformed By: #### ELDER, PTT, CMP, FE and TIBC, PT, A1C WTH eA, LIPID, MG, [id number], HS TROP, CBC ####[facility] [place] [address] USAPartial Thromboplastin Timeon 11-87-9967hLOU Coag (Bld) [Time]38.9 sHigh25.1-36.5[facility] Comment on above:Result Comment: A hematocrit value greater than 55% may lead to inaccurate results in coagulation testing. Patients having hematocrit values >55% require a special collection tube for coagulation studies. Please contact the laboratory at [phone] for redraw instructions.PERFORMED BY:[address] [place], [place] [phone] MEDICAL DIRECTORMARY SONI M.D.Performed By: #### ELDER, PTT, CMP, FE and TIBC, PT, A1C WTH eA, LIPID, MG, [id number], HS TROP, CBC ####[place] [address] [place] [address] USAProthrombin time (PT)Ordered By: Akash Mccartney on 27-93-2241BT Coag (PPP) [Time]27.3 sHigh9.0-12.9 [facility] HospitalComment on above:A hematocrit value greater than 55% may lead to inaccurate results in coagulation testing. Patientshaving hematocrit values >55% require a special collection tube for coagulation studies. Please contact the laboratory at [phone] for redraw instructions. Result Comment: A hematocrit value greater than 55% may lead to inaccurate results in coagulation testing. Patients having hematocrit values >55% require a special collection tube for coagulation studies. Please contact the laboratory at [phone] for redraw instructions.Performed By: #### ELDER, PTT, CMP, FE and TIBC, PT, A1C WTH eA, LIPID, MG, [id number], HS TROP, CBC ####[place] [address] [place] [address] USASerum or plasma iron binding capacity measurement (mass/volume)Ordered By: Akash Mccartney on 12-13-2024 Iron binding capacity [Mass/Vol]204 ug/iSMyg162-275FqmskpxadTrinity Health System West Campuserum or plasma iron saturation measurement (mass fraction)Ordered By: Akash Mccartney on 78-90-6249Jcrn saturation [Mass fraction]5.4 %Ics85-93 [facility] West Campuserum or plasma total cholesterol/high density lipoprotein (HDL) cholesterol mass ratOrdered By: Akash Mccartney on 66-99-2349Ixiifqyjlip.total/Cholesterol in HDL [Mass ratio]2.1 {ratio}Normal<5.0 [facility] HospitalComment on above:Order Comment: FASTING YResult Comment: PERFORMED BY:[address] [place], [place] [phone] MEDICAL DIRECTORMARY SONI M.D.Performed By: #### ELDER, PTT, CMP, FE and TIBC, PT, A1C WTH eA, LIPID, MG, [id number], HS TROP, CBC ####[address] [address] USATransferrin [Mass/volume] in Serum or PlasmaOrdered By: Akash Mccartney on 86-83-1440Hpwrrbqzwor [Mass/Vol]146 mg/lZUir731-359LjwwhgmapSalem City HospitalComment on above:Order Comment: FASTING YPerformed By: #### ELDER, PTT, CMP, FE and TIBC, PT, A1C WTH eA, LIPID, MG, [id number], HS TROP, CBC ## ##[address] [address] [place] Triglyceride [Mass/volume] in Serum or PlasmaOrdered By: Akash Mccartney on 11-70-6006Ctbiysxtigdj [Mass/Vol]57 mg/dL0-149[facility] Comment on above:TRIG ATP III CLASSIFICATIONTRIG less than 150 mg/dL NormalTRIG 150-199 mg/dL Borderline highTRIG 200-500 mg/dL High TRIG greater than 500 mg/dL Very highStandard traceable to the Center for Disease Conrtrol and Prevention (CDC) test method.Troponin I High Sensitivityon 38-63-8328Fmivjves I High Iqjwfypuvvg23Ukcway0-46Php [facility] Physician GroupComment on above:Result Comment: The Troponin units of report have been changed to meet the Chest Pain Accreditationrequirement, element EC5.M1l2. Troponin units are changed from pg/ml to ng/L. Also, the decimal is removed and results are in whole numbers.PERFORMED BY:[address] GOLDSTEINDaneAMEENABUFFAL[place], [place] [phone] MEDICAL DIRECTORMARY SONI M.D.Performed By: #### ELDER, PTT, CMP, FE and TIBC, PT, A1C WTH eA, LIPID, MG, [id number], HS TROP, CBC ####[address] [address] USATroponin I.cardiac [Mass/volume] in Serum or Plasma by Detection limit <= 0.01 ng/mLOrdered By: Akash Mccartney on 70-38-3341Foyyiise I.cardiac DL <= 0.01 ng/mL [Mass/Vol]10 ng/L0-[facility] HospitalComment on above:The Troponin units of report have been changed to meet the Chest Pain Accreditation requirement, element EC5.M1l2. Troponin units are changed from pg/ml to ng/L. Also, the decimal is removed and results are in whole numbers. Vit. B12/Folate Profileon 12-77-6206Xspuhz4.1 ng/mLNormal>5.9The [facility] Physician GroupComment on above:Order Comment: FASTING YResult Comment: Folate reference range: >5.9 ng/ml The WHO technical consultation on folate and vitamin b12 deficiencies has determined that folate concentrations less than 4 ng/ml are considered deficient.PERFORMED BY:[address] [place]FF[address], [place] [phone] MEDICAL DIRECTORMARY SONI M.D.Performed By: #### ELDER, PTT, CMP, FE and TIBC, PT, A1C WTH eA, LIPID, MG, [id number], HS TROP, CBC ####[facility] [place] [address] USAVitamin B12 ser/plasOrdered By: Akash Mccartney on 71-96-0630Hdkczpaoe (Vitamin B12) [Mass/Vol]506 pg/rYQldayo120-228KpliaqzwrSalem City HospitalComment on above:Order Comment: FASTING YPerformed By: #### ELDER, PTT, CMP, FE and TIBC, PT, A1C WTH eA, LIPID, MG, [id number], HS TROP, CBC ####[place] [address] [place] [id number] [facility] aPTT in Platelet poor plasma by Coagulation assayOrdered By: Akash Mccartney on 52-73-1914fMYW Coag (PPP) [Time]38.9 sHigh25.1-36.5FJoint Township District Memorial HospitalComment on above:A hematocrit value greater than 55% may lead to inaccurate results in coagulation testing. Patientshaving hematocrit values >55% require a special collection tube for coagulation studies. Please contact the laboratory at [phone] for redraw instructions.Alanine aminotransferase [Enzymatic activity/volume] in Serum or PlasmaOrdered By: Sree Thao on 62-09-9514ZHP [Catalytic activity/Vol]14 U/LNormal7-52[facility] HospitalComment on above:Performed By: #### HS TROP, PTT, PT, CBC, CMP ####[facility] [place] [address] USAAlbumin [Mass/volume] in Serum or Plasma by Bromocresol green (BCG) dye binding metho Ordered By: Sree Thao on 44-09-7045Qgseeau BCG dye [Mass/Vol]3.7 g/dL 3.5-5.7FJoint Township District Memorial HospitalAlkaline phosphatase [Enzymatic activity/volume] in Serum or PlasmaOrdered By: Sree Thao on 12-12-2024 ALP [Catalytic activity/Vol]98 U/HVesgkn92-645LngdwbhjuSalem City Hospital Comment on above:Performed By: #### HS TROP, PTT, PT, CBC, CMP ####[address] [place] [address] USAAppearance of Urine Ordered By: Sree Thao on 95-86-4518Jpmdyftkgr (U)ClearNormalClear [facility] HospitalComment on above:Order Comment: Name Collection Type:: Chou CatheterPerformed By: #### CUU, ADDONUAPLUS ####[address] [place], [place] USAAspartate aminotransferase [Enzymatic activity/volume] in Serum or PlasmaOrdered By: Sree Thao on 63-29-9206KNW [Catalytic activity/Vol]49 U/HOoid62-51TrsttjzlhSalem City HospitalComment on above:Performed By: #### HS TROP, PTT, PT, CBC, CMP ####[address] [place] [address] USABNP ser/plasOrdered By: Sree Thao on 04-58-9293Dbyxdwjmoht peptide B (Bld) [Mass/Vol]114.0 pg/mLHigh5-100[facility] HospitalComment on above: Order Comment: ADDED ON TO PREVIOUS REQUISITION PER EDILMA IN [place] Comment: PERFORMED BY:[place] [address] [place] [place], [place] [phone] MEDICAL MARY KATE SONI M.D.Performed By: #### BNP ####[address] [address] USABacteria [Presence] in Urine by AutomatedOrdered By: Sree Thao on 46-69-5468Ujrvapfg Auto Ql (U)Rare [HPF]None [facility] CampusBasophils [#/volume] in Blood by Automated countOrdered By: Sree Thao on 06-24-3239Jeefjupdo (Bld) [#/Vol]0.0 10*3/uLNormal0.0-0.2FJoint Township District Memorial HospitalComment on above:Result Comment: PERFORMED BY:[place] [address] [place] [place], [place] [phone] MEDICAL DIRECTORMARIO S NAE M.D.Performed By: #### HS TROP, PTT, PT, CBC, CMP ####[place] [address] [place] Basophils/100 leukocytes in Blood by Automated countOrdered By: Sree Thao on 75-53-7555Zclveqtoy/100 WBC (Bld)0.6 %Normal.[facility] HospitalComment on above:Performed By: #### HS TROP, PTT, PT, CBC, CMP ####[place] [id number] [facility] Bilirubin Test strip Ql (U)Ordered By: Sree Thao on 91-21-2581Slizpxisj Ql (U)NegativeNegativeSalem City HospitalBilirubin.total [Mass/volume] in Serum or PlasmaOrdered By: Sree Thao on 12-12-2024 Bilirubin [Mass/Vol]0.9 mg/dLNormal0.3-1.0[facility] Comment on above:Performed By: #### HS TROP, PTT, PT, CBC, CMP ####[place] [id number] [place] cervical spine wo conon 31-19-2118DB cervical spine wo conNormalThe [facility] Calcium [Mass/volume] in Serum or PlasmaOrdered By: Sree Thao on 07-55-2574Crlrwvc [Mass/Vol]9.1 mg/dLNormal8.6-10.3FJoint Township District Memorial HospitalComment on above:Performed By: #### HS TROP, PTT, PT, CBC, CMP ####[place] [id number] [place]ACarbon dioxide, total [Moles/volume] in Serum or PlasmaOrdered By: Sree Thao on 44-89-9031NK9 [Moles/Vol]26.4 mmol/OOcudzo75.0-31.0[facility] HospitalComment on above:Performed By: #### HS TROP, PTT, PT, CBC, CMP ####[place] [id number] [place] Chloride [Moles/volume] in Serum or PlasmaOrdered By: Sree Thao on 37-90-0830Qlxlaeso [Moles/Vol]102 mmol/QQhwvlw87-911WutytixplSalem City HospitalComment on above:Performed By: #### HS TROP, PTT, PT, CBC, CMP ####[address] [address] USAColor of Urine by AutoOrdered By: Sree Master on 34-62-9866Fwjzd (U)Colorless NormalYellowSalem City HospitalComment on above:Order Comment: Name Collection Type:: Chou CatheterPerformed By: #### CUU, ADDONUAPLUS ####[address] USAComplete Blood Count Auto Diffon 62-03-0986Azsl Corpuscular HGB Conc32.5 g/dLNormal 32.5-35.6The [facility] Physician GroupComment on above:Performed By: #### HS TROP, PTT, PT, CBC, CMP ####[address] [address] USAMonocytes/100 WBC (Bld)18.74 %Normal0.00-20.00The [facility] Physician GroupComment on above:Performed By: #### HS TROP, PTT, PT, CBC, CMP ####[address] [address] USANRBC% 0.3 /100{WBC}Normal0-0.5The [facility] Physician [facility] HospitalComment on above:Performed By: #### HS TROP, PTT, PT, CBC, CMP ####[address] [address] USAWhite Blood Count5.0 [CFU]/mLNormal4.1-10.5[facility] Physician [facility] HospitalComment on above:Performed By: #### HS TROP, PTT, PT, CBC, CMP ####[address] [address] USAComprehensive Metabolic Panelon 80-06-8719Ogkwxfm [Mass/Vol]3.7 g/dLNormal 3.5-5.7The [facility] Physician GroupComment on above:Performed By: #### HS TROP, PTT, PT, CBC, CMP ####[address] [place] [address] USACreatinine Clr Calc Gcwpiqqd80.45NoCritical access hospital Physician Group Comment on above:Result Comment: PERFORMED BY:[address] [place] [address] [address] [place], [place] [phone] MEDICAL DIRECTORMARY SONI M.D.Performed By: #### HS TROP, PTT, PT, CBC, CMP ####[address] [address] [place] GFR/1.73 sq M.predicted MDRD (S/P/Bld) [Vol rate/Area]mL/min/{1.73_m2}NormalThe [facility] Memorial Hospital Physician GroupComment on above:Performed By: #### HS TROP, PTT, PT, CBC, CMP ####[address] [address] USACreatinine [Mass/volume] in Serum or PlasmaOrdered By: Sree Thao on 71-21-0050Ikvffbxkev [Mass/Vol]1.09 mg/dLNormal0.70-1.30Salem City HospitalComment on above:Performed By: #### HS TROP, PTT, PT, CBC, CMP ####[address] [address] [place] Dipstick and Microscopicon 64-42-7189Hisenlgh,UrineRareNormalNone SeenThe Person Memorial Hospital Physician GroupComment on above:Order Comment: Name Collection Type:: Chou CatheterPerformed By: #### CUU, ADDONUAPLUS ####[address] USABilirubin,UrineNegativeNormalNegative [facility] Physician GroupComment on above:Order Comment: Name Collection Type:: Chou CatheterPerformed By: #### CUU, ADDONUAPLUS ####[address] USAGlucose Ql (U)NormalNormal NormalThe [facility] Hospital Physician GroupComment on above:Order Comment: Name Collection Type:: Chou CatheterPerformed By: #### CUU, ADDONUAPLUS ####[address] USAHyaline Casts,Nilaz9-6Ovnkgd2-1Dmg [facility] Physician GroupComment on above:Order Comment: Name Collection Type:: Chou CatheterPerformed By: #### CUU, ADDONUAPLUS ####[address] USAMucus,UrineRareNormalThe [facility] Hospital Physician GroupComment on above:Order Comment: Name Collection Type:: Chou CatheterResult Comment: PERFORMED BY:[address]CI GOLDSTEINDaneAMEENA, [place] [phone] MEDICAL MARY KATE SONI M.D.Performed By: #### CUU, ADDONUAPLUS ####[address] USANitrite,UrineNegativeNormalNegativeThe [facility] Hospital Physician GroupComment on above:Order Comment: Name Collection Type:: Chou CatheterPerformed By: #### CUU, ADDONUAPLUS ####[address] [address] USAOccult Blood,Urine1+NormalNegativeThe [facility] Hospital Physician GroupComment on above:Order Comment: Name Collection Type:: Chou CatheterResult Comment: PERFORMED BY:[address] [place] [address] [address] GOLDSTEINDaneAMEE[place], [place] [phone] MEDICAL MARY KATE SONI M.D.Performed By: #### CUU, ADDONUAPLUS ####[address] USAProtein,UrineNegativeNormalNegativeThe [facility] Hospital Physician GroupComment on above:Order Comment: Name Collection Type:: Chou CatheterPerformed By: #### CUU, ADDONUAPLUS ####[address] USARBC,Qewsg5-4Prhznp6-9Yzg [facility] Physician GroupComment on above:Order Comment: Name Collection Type:: Chou CatheterPerformed By: #### CUU, ADDONUAPLUS ####[address] USASpecificy Delta,Urine1.004Normal 1.001-1.030The [facility] Physician GroupComment on above:Order Comment: Name Collection Type:: Chou CatheterPerformed By: #### CUU, ADDONUAPLUS ####[address] [place] Urobilinogen,UrineNormalNormalNormHCA Florida Clearwater Emergency Physician GroupComment on above:Order Comment: Name Collection Type:: Chou CatheterPerformed By: #### CUU, ADDONUAPLUS ####[address] [address] USAWBC,Cndea48-96Acjity3-1Vqk [facility] Physician GroupComment on above: Order Comment: Name Collection Type:: Chou CatheterPerformed By: #### CUU, ADDONUAPLUS ####[address] USAECG 12 lead ECGon 35-73-4754HVN 12 lead ECGNew Ulm Medical CenterEosinophils [#/volume] in Blood by Automated countOrdered By: Sree Thao on 71-40-4470Sqgluwamcnb (Bld) [#/Vol]0.2 10*3/uLNormal0.0-0.45Salem City HospitalComment on above:Performed By: #### HS TROP, PTT, PT, CBC, CMP ####[address] [address] USAEosinophils/100 leukocytes in Blood by Automated countOrdered By: Sree Thao on 35-73-5355Imyhmyieobz/100 WBC (Bld)4.4 %Normal.Salem City HospitalComment on above:Performed By: #### HS TROP, PTT, PT, CBC, CMP ####[address] [address] [place] Epithelial cells.squamous [#/area] in Urine sediment by Automated countOrdered By: Sree Thao on 27-37-0667Dknopjapti cells.squamous Auto (Urine sed) [#/Area]N/AFJoint Township District Memorial HospitalErythrocyte distribution width [Ratio] by Automated countOrdered By: Sree Thao on 07-59-6350Ntstjglcdie distribution width (RBC) [Ratio]18.4 %High12.0-14.8Salem City HospitalComment on above:Performed By: #### HS TROP, PTT, PT, CBC, CMP ####[facility] [address] Erythrocytes [#/area] in Urine sediment by Automated countOrdered By: Sree Thao on 34-04-3585TLN Auto (Urine sed) [#/Area]1-2 [HPF]0-4FJoint Township District Memorial HospitalErythrocytes [#/volume] in Blood by Automated countOrdered By: Sree Thao on 98-78-3254NAG (Bld) [#/Vol]3.34 10*6/uLLow3.90-5.60 [facility] City HospitalComment on above:Performed By: #### HS TROP, PTT, PT, CBC, CMP ####[facility] Swg[address] StreetGlomerular filtration rate [Volume Rate/Area] in Serum, Plasma or Blood by CreatinineOrdered By: Sree Thao on 55-95-5551Agbxcksvvr filtration rate [Volume Rate/Area] in Serum, Plasma or Blood by Creatinine> 60.0 mL/MinSalem City HospitalGlucose [Mass/volume] in Serum or Plasma Ordered By: Sree Thao on 87-02-3758Shvysuj [Mass/Vol]121 mg/nFGpig37-278 [facility] City HospitalComment on above:ADA recommended reference rangeRandom Glucose Reference Range is dependent on time and content of last meal. Glucose of more than 200 mg/dL in a nonstressed, ambulatory subject supports the diagnosisof Diabetes Mellitus.Result Comment: Random Glucose Reference Range is dependent on time and content of last meal. Glucose of more than 200 mg/dL in a nonstressed, ambulatory subject supports the diagnosis of Diabetes Mellitus. ADA recommended reference rangePerformed By: #### HS TROP, PTT, PT, CBC, CMP ####[address] [place] [id number] USAGlucose [Mass/volume] in Urine by Test stripOrdered By: Sree Thao on 37-34-0500Zocujvq Test strip (U) [Mass/Vol]Normal mg/dLNormal [facility] City HospitalHematocrit [Volume Fraction] of Blood by Automated countOrdered By: Sree Thao on 74-42-5429Laopumqkyr (Bld) [Volume fraction]29.7 %Low38.8-50.0Sal[facility] City HospitalComment on above:Performed By: #### HS TROP, PTT, PT, CBC, CMP ####[place] USAHemoglobin Test strip Ql (U) Ordered By: Sree Thao on 85-27-9650Rfffoopwwu Ql (U)1+HighNegative Salem City HospitalHemoglobin [Mass/volume] in BloodOrdered By: Sree Thao on 98-47-1116Vvhezoxlnz (Bld) [Mass/Vol]9.6 g/dLLow13.0-17.0 [facility] City HospitalComment on above:Performed By: #### HS TROP, PTT, PT, CBC, CMP ####[address] USAHyaline casts [#/area] in Urine sediment by Automated countOrdered By: Sree Thao on 68-70-2755Ygiskmz casts Auto (Urine sed) [#/Area]0-8 [LPF]0-8Sal[facility] City HospitalINR in Platelet poor plasma by Coagulation assayOrdered By: Sree Thao on 76-68-6708WJV Coag (PPP) [Relative time]2.6 {INR}NormalSalem City HospitalComment on above: INR Therapeutic Range A) Pre- and Peroperative OAT started two weeks before surgery. NOT HIP SURGERY: 1.5 - 2.5 HIP SURGERY: 2 - 3B) Primary and secondary prevention of venous THROMBOSIS: 2 - 3C) Active venous thrombosis, pulmonary embolismand prevention of recurrent venous thrombosis: 2 - 3D) Prevention of arterial thromboembolismincluding patients with mechanical heart valves: 3 - 4.5 Result Comment: INR Therapeutic Range A) Pre- [...] patients with mechanical heart valves: 3 - 4.5Performed By: #### HS TROP, PTT, PT, CBC, CMP ####[facility] [address] [facility] [address] USAKetones [Presence] in Urine by Test stripOrdered By: Sree Thao on 91-08-7549Owtvgtv Ql (U) NegativeNormalNegativeSalem City HospitalComment on above:Order Comment: Name Collection Type:: Chou CatheterPerformed By: #### CUU, ADDONUAPLUS ####[address] [facility], [id number] USALeukocyte esterase [Presence] in Urine by Test stripOrdered By: Sree Thao on 77-29-5228Lvkwtgchq esterase Test strip Ql (U)2+NormalNegative [facility] City HospitalComment on above:Order Comment: Name Collection Type:: Chou CatheterPerformed By: #### CUU, ADDONUAPLUS ####[address] [facility], [id number] USALeukocytes [#/area] in Urine sediment by Automated countOrdered By: Sree Thao on 60-91-3771OCJ Auto (Urine sed) [#/Area]10-19 [HPF]High0-4FJoint Township District Memorial Hospital Leukocytes [#/volume] corrected for nucleated erythrocytes in Blood by Automated counOrdered By: Sree Thao on 11-09-8825WAI corrected for nucl RBC Auto (Bld) [#/Vol]5.0 10*3/uL4.1-10.5FJoint Township District Memorial HospitalLeukocytes [#/volume] in Blood by Automated countOrdered By: Sree Thao on 59-91-8031UOO (Bld) [#/Vol]5.0 10*3/uLNormal4.1-10.5FJoint Township District Memorial HospitalComment on above:Performed By: #### HS TROP, PTT, PT, CBC, CMP ####[address] Lymphocytes [#/volume] in Blood by Automated countOrdered By: Sree Thao on 41-09-0146Ppksmfcandg (Bld) [#/Vol]0.8 10*3/uLLow1.00-4.8Sal[facility] City HospitalComment on above:Performed By: #### HS TROP, PTT, PT, CBC, CMP ####[address] Lymphocytes/100 leukocytes in Blood by Automated countOrdered By: Sree Thao on 58-15-1872Oitfzdbsbes/100 WBC (Bld)15.9 %Normal.[facility] City HospitalComment on above:Performed By: #### HS TROP, PTT, PT, CBC, CMP ####[place] [address] [facility] [Entitic mass] by Automated countOrdered By: Sree Thao on 08-11-0632QRG (RBC) [Entitic mass]28.8 qvQlrqax23.5-35.2FJoint Township District Memorial Hospital Comment on above:Performed By: #### HS TROP, PTT, PT, CBC, CMP ####[place] [address] [facility] Auto (RBC) [Mass/Vol]Ordered By: Sree Thao on 72-08-9434EWTM (RBC) [Mass/Vol]32.5 g/dL32.5-35.6FLancaster Municipal HospitalV [Entitic volume] by Automated countOrdered By: Sree Thao on 16-17-6532CEA (RBC) [Entitic vol]88.7 fL Yxgijz06.5-101Sal[facility] City HospitalComment on above:Performed By: #### HS TROP, PTT, PT, CBC, CMP ####[address] [place] USAMonocyte distribution width [Entitic volume] in Blood by AutomatedOrdered By: Sree Thao on 44-50-4000Nohoiwfq distribution width Auto (Bld) [Entitic vol]18.74 %0.00-20.00Sal[facility] City HospitalMonocytes [#/volume] in Blood by Automated countOrdered By: Sree Thao on 25-34-5124Mjwtcedxr (Bld) [#/Vol]0.4 10*3/uLNormal0.0-0.8 [facility] HospitalComment on above:Performed By: #### HS TROP, PTT, PT, CBC, CMP ####[address] [place] USAMonocytes/100 leukocytes in Blood by Automated countOrdered By: Sree Thao on 77-84-6201Aqnkzkmuw/100 WBC (Bld)7.5 %Normal.[facility] City HospitalComment on above:Performed By: #### HS TROP, PTT, PT, CBC, CMP ####[address] [place] USAMucus [Presence] in Urine by AutomatedOrdered By: Sree Thao on 39-40-6847Hpful Auto Ql (U)Rare [LPF][facility] Neutrophils [#/volume] in Blood by Automated countOrdered By: Sree Thao on 11-97-5956Xutmvmmyowi (Bld) [#/Vol]3.5 10*3/uLNormal1.8-7.7FJoint Township District Memorial HospitalComment on above:Performed By: #### HS TROP, PTT, PT, CBC, CMP ####[address] [address] [place] Neutrophils/100 leukocytes in Blood by Automated countOrdered By: Sree Thao on 67-56-5903Fqmjavxmmcu/100 WBC (Bld)71.6 %Normal.[facility] City HospitalComment on above:Performed By: #### HS TROP, PTT, PT, CBC, CMP ####[address] [address] USANitrite Test strip Ql (U)Ordered By: Sree Thao on 97-15-1153Uwrtsko Ql (U) NegativeNegativeSalem City HospitalNo Panel InformationOrdered By: Sree Thao on 18-32-2105Yafdqpcb Creatinine Clearance (Chem51.45 [facility] City HospitalNucleated erythrocytes [Presence] in Blood by Automated countOrdered By: Sree Thao on 70-62-4604Tvtjpczvk RBC Auto Ql (Bld)0.3 /100{WBC}0-0.5FJoint Township District Memorial HospitalPartial Thromboplastin Timeon 29-81-1718pUNI Coag (Bld) [Time]38.4 sHigh25.1-36.5[facility] Physician GroupComment on above:Result Comment: A hematocrit value greater than 55% may lead to inaccurate results in coagulation testing. Patients having hematocrit values >55% require a special collection tube for coagulation s tudies. Please contact the laboratory at [phone] for redraw instructions.PERFORMED BY:[address] [place], [place] [phone] MEDICAL DIRECTORMARY SONI M.D.Performed By: #### HS TROP, PTT, PT, CBC, CMP ####[address] [address] USAPlatelet mean volume [Entitic volume] in Blood by Automated countOrdered By: Sree Thao on 26-73-8743Asaaxkdz mean volume (Bld) [Entitic vol]7.8 fLNormal6.6-10.1FJoint Township District Memorial HospitalComment on above:Performed By: #### HS TROP, PTT, PT, CBC, CMP ####[address] [address] [place] Platelets [#/volume] in Blood by Automated countOrdered By: Sree Thao on 08-82-8731Pghexzlto (Bld) [#/Vol]229 10*3/vQOwjkxz442-821PjixevaizSalem City HospitalComment on above:Performed By: #### HS TROP, PTT, PT, CBC, CMP ####[address] [address] [place] Potassium [Moles/volume] in Serum or PlasmaOrdered By: Sree Thao on 50-54-3110Xjqxxievo [Moles/Vol]3.6 mmol/LNormal3.5-5.1FJoint Township District Memorial HospitalComment on above:Hemolysis is present at a level that could interfere with the result.Contact lab if redraw is requiredResult Comment: Hemolysis is present at a level that could interfere with the result. Contact lab if redraw is requiredPerformed By: #### HS TROP, PTT, PT, CBC, CMP ####[address] [place] [address] USAProtein Test strip (U) [Mass/Vol]Ordered By: Sree Thao on 74-43-3191Skadmrm (U) [Mass/Vol] NegativeNegativeSalem City HospitalProtein [Mass/volume] in Serum or PlasmaOrdered By: Sree Thao on 33-68-2675Ikvakly [Mass/Vol]6.9 g/dL Normal6.4-8.9[facility] City HospitalComsurgeons choice medical center on above:Performed By: #### HS TROP, PTT, PT, CBC, CMP ####[address] [address] USAProthrombin time (PT)Ordered By: Sree Thao on 93-77-7123CZ Coag (PPP) [Time]28.3 sHigh9.0-12.9Sal[facility] City HospitalComment on above:A hematocrit value greater than 55% may lead to inaccurate results in coagulation testing. Patientshaving hematocrit values >55% require a special collection tube for coagulation studies. Please contact the laboratory at [phone] for redraw instructions.Result Comment: A hematocrit value greater than 55% may lead to inaccurate results in coagulation testing. Patients having hematocrit values >55% require a special collection tube for coagulation studies. Please contact the laboratory at [phone] for redraw instructions.Performed By: #### HS TROP, PTT, PT, CBC, CMP ####[facility] [place] [address] USASerum globulin measurement by calculation (mass/volume)Ordered By: Sree Thao on 29-02-3182Pmvfkyef (S) [Mass/Vol]3.2 g/dLNormalSalem City Hospital Comment on above:Performed By: #### HS TROP, PTT, PT, CBC, CMP ####[address] [address] USASerum or plasma albumin/globulin mass ratioOrdered By: Sree Thao on 12-12-2024 Albumin/Globulin [Mass ratio]1.2 {ratio}NormalSalem City Hospital Comment on above:Performed By: #### HS TROP, PTT, PT, CBC, CMP ####[address] [address] USASerum or plasma anion gap determinationOrdered By: Sree Thao on 14-18-2035Agmuh gap [Moles/Vol]11.2 mmol/LNormal6.0-15.0Sal[facility] City HospitalComment on above:Performed By: #### HS TROP, PTT, PT, CBC, CMP ####[address] [address] USASodium [Moles/volume] in Serum or PlasmaOrdered By: Sree Thao on 43-30-4144Gugtdk [Moles/Vol]136 mmol/UIflhrr434-324VjvwfxvsxSalem City HospitalComment on above:Performed By: #### HS TROP, PTT, PT, CBC, CMP ####[address] [address] USASpecific gravity Test strip (U) [Rel density] Ordered By: Sree Thao on 33-23-2439Oqvszgug gravity (U) [Rel density] 1.0041.001-1.030[facility] City HospitalTroponin I High Sensitivityon 56-11-1763Wkdlhpfh I High Rrpvzuttnhe08Zjxzho9-74Ecy [facility] Comment on above:Result Comment: The Troponin units of report have been changed to meet the Chest Pain Accreditationrequirement, element EC5.M1l2. Troponin units are changed from pg/ml to ng/L. Also, the decimal is removed and results are in whole numbers.PERFORMED BY:[address] [place], [place] [phone] MEDICAL DIRECTORMARY SONI M.D.Performed By: #### HS TROP, PTT, PT, CBC, CMP ####[facility] [place] [address] USATroponin I.cardiac [Mass/volume] in Serum or Plasma by Detection limit <= 0.01 ng/mLOrdered By: Sree Thao on 22-12-2355Cysswzes I.cardiac DL <= 0.01 ng/mL [Mass/Vol]10 ng/L0-20Sal[facility] City HospitalComment on above:The Troponin units of report have been changed to meet the Chest Pain Accreditation requirement, element EC5.M1l2. Troponin units are changed from pg/ml to ng/L. Also, the decimal is removed and results are in whole numbers.Urea nitrogen [Mass/volume] in Serum or Plasma Ordered By: Sree Thao on 42-05-0370Aybh nitrogen [Mass/Vol]16 mg/dL Normal7-Sal[facility] City HospitalComment on above:Performed By: #### HS TROP, PTT, PT, CBC, CMP ####[facility] [place] [address] USAUrine Cultureon 21-68-5830Ozpkogui identified Cx Nom (U)NormalThe Person Memorial Hospital Physician GroupComment on above:Performed By: #### CUU, ADDONUAPLUS ####[address] USAUrine cultureOrdered By: Sree Thao on 27-76-7355Xbfzgfdm identified Cx Nom (U)Klebsiella pneumoniae (ESBL)AbnormalSalem City Hospital Urobilinogen Test strip (U) [Mass/Vol]Ordered By: Sree Thao on 18-71-3369Qtydeopzwmhq (U) [Mass/Vol]Normal mg/dLNormalSalem City HospitalX-ray reportOrdered By: Shaquille Mahoney on 24-37-6297Qawyw report [facility] [address] [place] [address] XRay Report Signed Patient: Tavo Wallis Carson Murray MR# : [id number] : 1940 Acct:[id number] Age/Sex: 84 / M ADM Date: 5 Loc: ER Room: Type: [facility] ER Attending Dr: Copies to: Sree Thao [...] Mahoney M.D. 12/12/2024 1:46 PM Dictation Location: [place] [address] Transcribed By: [facility] 12/12/24 1346 Dictated By: Shaquille Mahoney II, MD 12/12/24 1342 Signed By: 12/12/24 1346 [facility] Work Phone: Study reportSalem City Hospital Work Phone: XR chest 2V*on 09-02-1829MF chest 2V*NormalThe [facility] Memorial Hospital Physician GroupaPTT in Platelet poor plasma by Coagulation assay Ordered By: Sree Thao on 70-83-6323fQIO Coag (PPP) [Time]38.4 sHigh 25.1-36.5FJoint Township District Memorial HospitalComment on above:A hematocrit value greater than 55% may lead to inaccurate results in coagulation testing. Patients having hematocrit values >55% require a special collection tube for coagulation studies. Please contact the laboratory at [phone] for redraw instructions. pH of Urine by Test stripOrdered By: Sree Taho on 88-36-0635jE (U)5.5 [pH]Normal5.0-9.0Sal[facility] City HospitalComment on above:Order Comment: Name Collection Type:: Chou CatheterPerformed By: #### CUU, ADDONUAPLUS ####[facility] [address] [place], [place] [facility] CENTERMR lumbar spine wo/w conon 11-79-5651XH lumbar spine wo/w conNormalThe [facility] Hospital Physician GroupMagnetic resonance imaging reportOrdered By: Shaquille Mahoney on 15-55-7869Xzmis reportOHIOHEALTH HARDIN [facility]ORIAL [facility] [address] [place] [address] MRI Report Signed Patient: Tavo Wallis Jr MR# : [id number] : 1940 Acct:[id number] Age/Sex: 84 / M ADM Date: 5 Loc: MR Room: Type: [facility] Attending Dr: Keely Montoya APRN Copies to: Keely Montoya APRN~ Ordering Provider: Keely Montoya APRN Date of Service: 12/04/24 MR/MR lumbar spine wo/w con: S32.010A - Wedge compression fracture of first lumbar mis... MR lumbar [...] prior studies.. There is anterior wedging of theL1 vertebral body with is noted in the superior endplate. There is approximately 50% loss of vertebral body height. This is unchanged when compared to the prior CT. Mild anterior wedgingis also redemonstrated at T12. The conus terminates at the superior endplate ofthe L2 vertebral body level. No epidural or [...] is moderate to severe neural foraminal stenosis bilaterally,right greater than left. There is minimal spinal [...] Facet degenerative changes are present bilaterally without significantstenosis. MR/MR lumbar spine wo/w con IMPRESSION: At [...] still significant degrees of degenerative changes are redemonstrated,as above. No abnormal postcontrast enhancement. Impression dictated by: Shaquille Mahoney M.D. 12/04/2024 1:30 PM Dictation Location: [place] [address] Transcribed By: NOLVIA 12/04/24 1330 Dictated By: Shaquille Mahoney II, MD 12/04/24 1323 Signed By: 12/04/24 1330 [facility] Work Phone: ct head/brain wo conon 43-49-9295YC head/brain wo con NormalThe [facility] Hospital Physician GroupCT lumbar spine wo conon 89-34-3260DY lumbar spine wo conNormalThe [facility] Hospital Physician GroupX-ray reportOrdered By: Esa Cardoso on 30-21-0754Odfdx reportOHIOHEALTH HARDIN [facility]ORIAL [facility] [address] [place] [address] [place], [place] [address] XRay Report Signed Patient: Tavo Wallis Jr MR# : [id number] : 1940 Acct:[id number] Age/Sex: 84 / M ADM Date: 5 Loc: CT Room: Type: [facility] Attending Dr: Jovany Stovall MD Copies [...] Development of greater than 50% L1 anterior wedgecompression fracture. Similar bony alignment and degenerative change. Impression dictated by: Esa Cardoso M.D. 10/31/2024 5:40 PM Dictation Location: [facility] Transcribed By: [facility] 10/31/241739 Dictated By: Esa Cardoso DO 10/31/241734 Signed By: 10/31/241739 [facility] HospitalXR lumbar spine 6V w bendingon 72-45-7572HY lumbar spine 6V w bendingNoCritical access hospital Physician GroupBasic Metabolic Panelon 63-08-7738Cxrzfdfrzp Clr Calc Riufxaxz50.92NoCritical access hospital Physician GroupComment on above:Performed By: #### GOMEZ DOMINGUEZ, MG ####[address] [address] USAGFR/1.73 sq M.predicted MDRD (S/P/Bld) [Vol rate/Area]55.532 mL/min/{1.73_m2}NormalThe Person Memorial Hospital Physician GroupComment on above:Performed By: #### GOMEZ DOMINGUEZ, MG ####[address] [address] USACalcium [Mass/volume] in Serum or PlasmaOrdered By: Franck Gagnon on 11-53-8798Jhplwez [Mass/Vol]8.6 mg/dL Normal8.6-10.3FJoint Township District Memorial HospitalComment on above:Performed By: #### GOMEZ DOMINGUEZ, MG ####[address] [address] USACarbon dioxide, total [Moles/volume] in Serum or PlasmaOrdered By: Franck Gagnon on 82-29-2050ZX1 [Moles/Vol]27.5 mmol/KTlswxj81.0-31.0[facility] City HospitalComment on above:Performed By: #### GOMEZ DOMINGUEZ, MG ####[address] [address] [place] Chloride [Moles/volume] in Serum or PlasmaOrdered By: Franck Gagnon on 10-08-2024 Chloride [Moles/Vol]98 mmol/NPvplah18-162PwowmdjheSalem City Hospital Comment on above:Performed By: #### GOMEZ DOMINGUEZ, MG ####[address] [address] USACreatinine [Mass/volume] in Serum or PlasmaOrdered By: Franck Gagnon on 44-99-8303Flfplmfnwc [Mass/Vol]1.28 mg/dLNormal0.70-1.30Sal[facility] City HospitalComment on above:Performed By: #### GOMEZ DOMINGUEZ, MG ####[address] [address] USAErythrocyte distribution width [Ratio] by Automated countOrdered By: Franck Gagnon on 58-93-7275Xnfaksdbouf distribution width (RBC) [Ratio]17.7 %High12.0-14.8Salem City HospitalComment on above: Performed By: #### GOMEZ DOMINGUEZ MG ####[facility] [place] [address] USAErythrocytes [#/volume] in Blood by Automated count Ordered By: Franck Gagnon on 48-83-3118MZR (Bld) [#/Vol]2.63 10*6/uLLow3.90-5.60 [facility] City HospitalComment on above:Performed By: #### GOMEZ DOMINGUEZ MG ####[address] [place] [address] [place] Glucose [Mass/volume] in Serum or PlasmaOrdered By: Franck Gagnon on 10-08-2024 Glucose [Mass/Vol]95 mg/yKSdbiht21-001AuigrahkwSalem City HospitalComment on above:ADA recommended reference rangeRandom Glucose Reference Range is dependent on time and content of last meal. Glucose of more than 200 mg/dL in a nonstressed, ambulatory subject supports the diagnosisof Diabetes Mellitus. Result Comment: Random Glucose Reference Range is dependent on time and content of last meal. Glucose of more than 200 mg/dL in a nonstressed, ambulatory subject supports the diagnosis of Diabetes Mellitus. ADA recommended reference rangePerformed By: #### GOMEZ DOMINGUEZ MG ####[address] [place] [address] USAHematocrit [Volume Fraction] of Blood by Automated countOrdered By: Franck Gagnon on 63-85-5729Sxjlhqgxdw (Bld) [Volume fraction]24.1 %Low38.8-50.0Sal[facility] City HospitalComment on above: Performed By: #### GOMEZ DOMINGUEZ MG ####[address] [place] [address] USAHemoglobin [Mass/volume] in BloodOrdered By: Franck Gagnon on 43-69-7308Lkovakdnpq (Bld) [Mass/Vol]8.0 g/dLLow13.0-17.0[facility] City HospitalComment on above:Performed By: #### GOMEZ DOMINGUEZ MG ####[address] Hemogram CBC Without Diffon 74-09-4272Vaiv Corpuscular HGB Conc33.2 g/dLNormal 32.5-35.6[facility] Physician GroupComment on above:Performed By: #### GOMEZ DOMINGUEZ, MG ####[address] StreetWhite Blood Count6.0 [CFU]/mLNormal4.1-10.5[facility] Comment on above:Performed By: #### GOMEZ DOMINGUEZ MG ####[address] StreetLeukocytes [#/volume] corrected for nucleated erythrocytes in Blood by Automated counOrdered By: Franck Gagnon on 40-57-8703AZL corrected for nucl RBC Auto (Bld) [#/Vol]6.0 10*3/uL 4.1-10.5FOhioHealth Doctors Hospital [Entitic mass] by Automated count Ordered By: Franck Gagnon on 95-83-8484ZXD (RBC) [Entitic mass]30.4 pgNormal 27.5-35.2FJoint Township District Memorial HospitalComment on above:Performed By: #### GOMEZ DOMINGUEZ, MG ####[address] [facility] CITYHC Auto (RBC) [Mass/Vol]Ordered By: Franck Gagnon on 78-64-5338KLYY (RBC) [Mass/Vol]33.2 g/dL32.5-35.6FLancaster Municipal HospitalV [Entitic volume] by Automated countOrdered By: Franck Gagnon on 66-31-2010PJQ (RBC) [Entitic vol]91.5 nQOqsdek89.5-101Sal[facility] City HospitalComment on above:Performed By: #### ALBERTO CBCNO, MG ####[address] [place] [address] USAMagnesium [Mass/volume] in Serum or Plasma Ordered By: Franck Gagnon on 22-76-5923Uvhvxfezk [Mass/Vol]2.1 mg/dLNormal1.9-2.7 [facility] City HospitalComment on above:Result Comment: PERFORMED BY:[address] [place], [place] [phone] MEDICAL MARY KATE SONI M.D.Performed By: #### CORA DOMINGUEZNO, MG ####[address] [place] [address] USANo Panel InformationOrdered By: Franck Gagnon on 98-94-5308Oqhwztoss GFR (CKD-EPI)55.532 mL/[facility]Ph[facility] Creatinine Clearance (Chem40.92[facility]55.532 mL/[facility]40.92[facility] City HospitalPlatelet mean volume [Entitic volume] in Blood by Automated countOrdered By: Franck Gagnon on 12-65-4721Lekcbdlx mean volume (Bld) [Entitic vol]7.5 fLNormal6.6-10.1FJoint Township District Memorial HospitalComment on above:Result Comment: PERFORMED BY:[address] [place], [place] [phone] MEDICAL MARY KATE SONI M.D.Performed By: #### ALBERTO, CORANO, MG ####[address] [address] [place] Platelets [#/volume] in Blood by Automated countOrdered By: Franck Gagnon on 45-21-0129Rcstaacqi (Bld) [#/Vol]173 10*3/rCPwapgu263-610VufrcbcluSalem City HospitalComment on above:Performed By: #### BMP, CBCNO, MG ####[address] [place] [address] USAPotassium [Moles/volume] in Serum or PlasmaOrdered By: Franck Gagnon on 29-94-7879Ppwmmgrih [Moles/Vol]4.1 mmol/LNormal3.5-5.1FJoint Township District Memorial HospitalComment on above:Performed By: #### GOMEZ DOMINGUEZ, MG ####[address] [place] [address] USASerum or plasma anion gap determinationOrdered By: Franck Gagnon on 06-13-7015Esfud gap [Moles/Vol]9.6 mmol/LNormal6.0-15.0 [facility] HospitalComment on above:Performed By: #### GOMEZ DOMINGUEZ, MG ####[address] [address] [place] Sodium [Moles/volume] in Serum or PlasmaOrdered By: Franck Gagnon on 10-08-2024 Sodium [Moles/Vol]131 mmol/CEaj401-667ArirxavogSalem City HospitalComment on above:Performed By: #### GOMEZ DOMINGUEZ, MG ####[address] [address] USAUrea nitrogen [Mass/volume] in Serum or PlasmaOrdered By: Franck Gagnon on 88-04-5942Cnwv nitrogen [Mass/Vol]20 mg/dL Normal7-25Sal[facility] City HospitalComment on above:Performed By: #### GOMEZ DOMINGUEZ, MG ####[address] [address] USAAppearance of UrineOrdered By: Franck Gagnon on 52-30-4145Voglajqcpy (U) CloudyCritically abnormalCleOhioHealth Shelby HospitalComment on above: Order Comment: Name Collection Type:: Chou CatheterPerformed By: #### CUU, ADDONUAPLUS ####[address] USABacteria [Presence] in Urine by AutomatedOrdered By: Franck Gagnon on 85-10-7205Izlwfehy Auto Ql (U)Rare [HPF]None SeenSalem City HospitalBilirubin Test strip Ql (U)Ordered By: Franck Gagnon on 65-38-4892Treqvothg Ql (U)NegativeNegativeSalem City HospitalCT head/brain wo conon 01-82-2301LM head/brain wo conNormalWinter Haven Hospital Physician GroupCT head/brain wo conNormalWinter Haven Hospital Physician GroupColor of Urine by AutoOrdered By: Franck Gagnon on 00-92-5063Uuajq (U)YellowNormalYellowSalem City HospitalComment on above:Order Comment: Name Collection Type:: Chou Catheter Performed By: #### CUU, ADDONUAPLUS ####[address] USADipstick and Microscopicon 88-19-4468Potcowru,Urine RareNormalNone SeenThe Person Memorial Hospital Physician GroupComment on above:Order Comment: Name Collection Type:: Chou CatheterPerformed By: #### CUU, ADDONUAPLUS ####[address] [place] Bilirubin,UrineNegativeNormalNegativeWinter Haven Hospital Physician GroupComment on above:Order Comment: Name Collection Type:: Chou CatheterPerformed By: #### CUU, ADDONUAPLUS ####[address] [address] USAGlucose Ql (U)NormalNormalNormalThe [facility] Hospital Physician GroupComment on above:Order Comment: Name Collection Type:: Chou CatheterPerformed By: #### CUU, ADDONUAPLUS ####[address] [address] USAHyaline Casts,Qzahn9-7Womxut3-5Ypo [facility] Physician GroupComment on above:Order Comment: Name Collection Type:: Chou CatheterPerformed By: #### CUU, ADDONUAPLUS ####[address] [address] USAMucus,UrineRareNormalWinter Haven Hospital Physician GroupComment on above: Order Comment: Name Collection Type:: Chou CatheterResult Comment: PERFORMED BY:[address] [place], [place] [phone] MEDICAL DIRECTORMARY SONI M.D.Performed By: #### CUU, ADDONUAPLUS ####[address], [place] USANitrite,UrineNegativeNormalNegativeWinter Haven Hospital Physician GroupComment on above:Order Comment: Name Collection Type:: Chou CatheterPerformed By: #### CUU, ADDONUAPLUS ####[address] [address] USAOccult Blood,Urine3+NormalNegativeThe Person Memorial Hospital Physician GroupComment on above:Order Comment: Name Collection Type:: Chou CatheterResult Comment: PERFORMED BY:[address] [place], [place] [phone] MEDICAL DIRECTORMARY SONI M.D.Performed By: #### CUU, ADDONUAPLUS ####[address] USARBC,UrineInnumerableNormal0-4The [facility] Physician GroupComment on above:Order Comment: Name Collection Type:: Chou Catheter Performed By: #### CUU, ADDONUAPLUS ####[address] USASpecificy Delta,Urine1.782Epjcsw6.001-1.030The [facility] Physician GroupComment on above:Order Comment: Name Collection Type:: Chou CatheterPerformed By: #### CUU, ADDONUAPLUS ####[address] USAUrobilinogen,UrineNormalNormalNormal The [facility] Physician GroupComment on above:Order Comment: Name Collection Type:: Chou CatheterPerformed By: #### CUU, ADDONUAPLUS ####[address] [place] USAWBC,UrineInnumerableNormal0-4 The [facility] Physician GroupComment on above:Order Comment: Name Collection Type:: Chou CatheterPerformed By: #### CUU, ADDONUAPLUS ####[address] USAEpithelial cells.squamous [#/area] in Urine sediment by Automated countOrdered By: Franck Gagnon on 86-75-2456Iwvcqmbttw cells.squamous Auto (Urine sed) [#/Area]N/AFJoint Township District Memorial HospitalErythrocytes [#/area] in Urine sediment by Automated countOrdered By: Franck Gagnon on 82-77-6428SED Auto (Urine sed) [#/Area] Innumerable [HPF]High0-4FJoint Township District Memorial HospitalGlucose [Mass/volume] in Urine by Test stripOrdered By: Franck Gagnon on 16-00-1814Lhtlxzg Test strip (U) [Mass/Vol]Normal mg/dLNormalSalem City HospitalHemoglobin Test strip Ql (U)Ordered By: Franck Gagnon on 08-52-1461Yxxsbofoht Ql (U)3+High NegativeSalem City HospitalHemogram CBC Without Diffon 10-07-2024 Erythrocyte distribution width (RBC) [Ratio]17.6 %High12.0-14.8The [facility] Physician GroupComment on above:Performed By: #### CBCNO ####[place] [address] USAHematocrit (Bld) [Volume fraction]27.2 %Low38.8-50.0The [facility] Physician GroupComment on above: Performed By: #### CBCNO ####[address] USAHemoglobin (Bld) [Mass/Vol]8.9 g/dLLow13.0-17.0The [facility] Physician GroupComment on above:Performed By: #### CBCNO ####[address] USAMCH (RBC) [Entitic mass]30.2 ydSpqhum92.5-35.2The [facility] Physician GroupComment on above: Performed By: #### CBCNO ####[address] USAMCV (RBC) [Entitic vol]92.6 bANlvsej63.5-101[facility] Physician [facility] HospitalComment on above:Performed By: #### CBCNO ####[address] USAMean Corpuscular HGB Conc32.6 g/wDSvvbya08.5-35.6[facility] Physician [facility] HospitalComment on above: Performed By: #### CBCNO ####[place] [address] USAPlatelet mean volume (Bld) [Entitic vol]7.8 fLNormal 6.6-10.1[facility] Physician [facility] HospitalComment on above:Result Comment: PERFORMED BY:[address] [place], [place] [phone] MEDICAL DIRECTORMARY SONI M.D.Performed By: #### CBCNO ####[place] [address] [place] Platelets (Bld) [#/Vol]177 10*3/hSWuhqen026-136Dvb [facility] Physician [facility] Comment on above:Performed By: #### CBCNO ####[address] USARBC (Bld) [#/Vol]2.94 10*6/uLLow3.90-5.60[facility] Physician [facility] HospitalComment on above:Performed By: #### CBCNO ####[place] [address] USAWhite Blood Count6.7 [CFU]/mLNormal4.1-10.5[facility] Physician [facility] HospitalComment on above:Performed By: #### CBCNO ####[place] [address] USAHyaline casts [#/area] in Urine sediment by Automated countOrdered By: Franck Gagnon on 37-12-2020Wnytygd casts Auto (Urine sed) [#/Area]0-8 [LPF]0-8 [facility] City HospitalKetones [Presence] in Urine by Test strip Ordered By: Franck Gagnon on 58-53-4513Jyyrteo Ql (U)TraceNormalNegCleveland Clinic South Pointe HospitalComment on above:Order Comment: Name Collection Type:: Chou CatheterPerformed By: #### CUU, ADDONUAPLUS ####[address] [place], [place] USALeukocyte esterase [Presence] in Urine by Test stripOrdered By: Franck Gagnon on 20-48-8589Yaxtthuwr esterase Test strip Ql (U)3+NormalNegCleveland Clinic South Pointe HospitalComment on above: Order Comment: Name Collection Type:: Chou CatheterPerformed By: #### CUU, ADDONUAPLUS ####[address] USALeukocytes [#/area] in Urine sediment by Automated countOrdered By: Franck Gagnon on 62-23-0330SIW Auto (Urine sed) [#/Area]Innumerable [HPF]High0-4 [facility] HospitalMucus [Presence] in Urine by AutomatedOrdered By: Franck Gagnon on 28-87-2330Riusu Auto Ql (U)Rare [LPF][facility] HospitalNitrite Test strip Ql (U)Ordered By: Franck Gagnon on 10-07-2024 Nitrite Ql (U)NegativeNegCleveland Clinic South Pointe HospitalProtein [Mass/volume] in Urine by Test stripOrdered By: Franck Gagnon on 10-07-2024 Protein (U) [Mass/Vol]100 mg/dLNoMagruder Memorial Hospital Comment on above:Order Comment: Name Collection Type:: Chou CatheterPerformed By: #### CUU, ADDONUAPLUS ####[address] USASpecific gravity Test strip (U) [Rel density]Ordered By: Franck Gagnon on 61-97-7357Sbwxipsl gravity (U) [Rel density]1.0281.001-1.030 [facility] HospitalUrine Cultureon 84-28-9195Xbgvryse identified Cx Nom (U)No Growth 2 Days PERFORMED BY: [facility] [address] [place] [address] PATHOLOGIST SILVERING APPLICATOR MARY SONI M.D.[facility] Physician GroupComment on above: Performed By: #### CUU, ADDONUAPLUS ####[address] USAUrine cultureOrdered By: Franck Gagnon on 10-07-2024 Bacteria identified Cx Nom (U)No Growth 2 DaysSalem City Hospital Urobilinogen Test strip (U) [Mass/Vol]Ordered By: Franck Gagnon on 10-07-2024 Urobilinogen (U) [Mass/Vol]Normal mg/dLNormalSalem City HospitalX- ray reportOrdered By: Shaquille Mahoney on 95-46-3039Qgyfb reportSalem City Hospital Work Phone: XR chest 1V portableon 29-61-1183UX chest 1V portable NormalThe [facility] Physician [facility] HospitalpH of Urine by Test stripOrdered By: Franck Gagnon on 73-41-1171qH (U)5.5 [pH]Normal5.0-9.0[facility] Comment on above:Order Comment: Name Collection Type:: Chou CatheterPerformed By: #### CUU, ADDONUAPLUS ####[address] USABlood Cultureon 40-61-5398Djurjucg identified Cx Nom (Bld)NO GROWTH 5 DAYS PERFORMED BY: [facility] [address] [place] [address] PATHOLOGIST SILVERING APPLICATOR MARY SONI M.D.NormalWinter Haven Hospital Physician GroupComment on above: Performed By: #### CUBLD ####[address] [address] USABacteria identified Cx Nom (Bld)NO GROWTH 5 DAYS PERFORMED BY: [facility] [address] [place] [address] PATHOLOGIST SILVERING APPLICATOR MARY SONI M.D.[facility] Physician GroupComment on above: Performed By: #### CUBLD ####[address] [place] [address] USACT head/brain wo conon 74-09-6533YA head/brain wo conNormalThe [facility] Physician GroupCapillary blood glucose measurement by glucometer (mass/volume)Ordered By: Franck Gagnon on 04-81-4274Gishozm [Mass/Vol] 102 mg/dLSelect Medical TriHealth Rehabilitation HospitalComment on above:Random Glucose Reference Range is dependent on time and content of last meal. Glucose of more than 200 mg/dL in a nonstressed, ambulatory subject supports the diagnosis of Diabetes Mellitus.Result Comment: Random Glucose Reference Range is dependent on time and content of last meal. Glucose of more than 200 mg/dL in a nonstressed, ambulatory subject supports the diagnosis of Diabetes Mellitus.PERFORMED BY:[address] [place], [place] [phone] MEDICAL DIRECTORMARY SONI M.D.Performed By: #### GLULS ####Point of Care testing,Dipstick and MicroscopicOrdered By: Frankie Reynolds on 08-93-9846Awagwnlcrr (U)clearNormalClearSalem City HospitalComment on above:Order Comment: Name Collection Type:: Chou Catheter Performed By: #### RAGHAVENDRA, CUU ####[facility] [place]airsheliaBU[place], [place] USAKetones Ql (U)NegativeNormalNegCleveland Clinic South Pointe HospitalComment on above:Order Comment: Name Collection Type:: Chou CatheterPerformed By: #### RAGHAVENDRA, CUU ####[address] [place] [facility]carepart[facility] rehabilitation hospitall[place], [address] USALeukocyte esterase Test strip Ql (U)4+ NormalNegCleveland Clinic South Pointe HospitalComment on above:Order Comment: Name Collection Type:: Chou CatheterPerformed By: #### OCTAVIANOPLUS, CUU ####[address] [place] [facility]carepart[facility] rehabilitation hospitall[place], [place] USApH (U) 5.5 [pH]Normal5.0-9.0[facility] City HospitalComment on above:Order Comment: Name Collection Type:: Chou CatheterPerformed By: #### ADDONUAPLUS, CUU ####[address] [place] Dipstick and Microscopicon 48-08-0154Rwsrmgdq,Urine1+ [HPF]NormalNone SeenThe Person Memorial Hospital Physician GroupComment on above:Order Comment: Name Collection Type:: Chou CatheterPerformed By: #### ADDONUAPLUS, CUU ####[address] USABilirubin,UrineNegativeNormalNegative [facility] Physician GroupComment on above:Order Comment: Name Collection Type:: Chou CatheterPerformed By: #### ADDONUAPLUS, CUU ####[address] USAColor (U)Light-YellowNormal YellowWinter Haven Hospital Physician GroupComment on above:Order Comment: Name Collection Type:: Chou CatheterPerformed By: #### ADDONUAPLUS, CUU ####[address] USAGlucose Ql (U)NormalNormalNormalThe [facility] Physician GroupComment on above:Order Comment: Name Collection Type:: Chou CatheterPerformed By: #### ADDONUAPLUS, CUU ####[address] [place] [place] Hyaline Casts,UrineNoneNormal0-8The [facility] Physician GroupComment on above: Order Comment: Name Collection Type:: Chou CatheterPerformed By: #### ADDONUAPLUS, CUU ####[address] [address] USAMucus,UrineRareNormalWinter Haven Hospital Physician GroupComment on above: Order Comment: Name Collection Type:: Chou CatheterResult Comment: PERFORMED BY:[address] [place], [place] [phone] MEDICAL DIRECTORMARADILENE S NAE M.D.Performed By: #### ADDONUAPLUS, CUU ####[address] [address] USANitrite,UrinePositiveNormalNegativeThe Person [facility] Hospital Physician GroupComment on above:Order Comment: Name Collection Type:: Chou CatheterPerformed By: #### ADDONUAPLUS, CUU ####[address] USAOccult Blood,Urine2+NormalNegativeThe [facility] Physician Group Comment on above:Order Comment: Name Collection Type:: Chou CatheterResult Comment: PERFORMED BY:[address] [place], [place] [phone] MEDICAL MARY KATE SONI M.D.Performed By: #### ADDONUAPLUS, CUU ####[address] USAProtein,UrineTraceNormalNegativeThe Person Memorial Hospital Physician GroupComment on above:Order Comment: Name Collection Type:: Chou CatheterPerformed By: #### ADDONUAPLUS, CUU ####[address] USARBC,Qkpbn00-69Eqbvai8-8Zgp [facility] Physician GroupComment on above:Order Comment: Name Collection Type:: Chou CatheterPerformed By: #### ADDONUAPLUS, CUU ####[address] USASpecificy Delta,Urine1.018Normal 1.001-1.030The [facility] Physician GroupComment on above:Order Comment: Name Collection Type:: Chou CatheterPerformed By: #### ADDONUAPLUS, CUU ####[address] [place] Urobilinogen,UrineNormalNormalNormalThe [facility] Physician GroupComment on above:Order Comment: Name Collection Type:: Chou CatheterPerformed By: #### ADDONUAPLUS, CUU ####[facility] [address] [place] [address] USAWBC,Jmtns44-79Vffnln8-2Juf [facility] Physician GroupComment on above: Order Comment: Name Collection Type:: Chou CatheterPerformed By: #### ADDTINO, CUU ####[facility] [address] [place] [address] USALaboratory - Chemistry and Chemistry - challengeOrdered By: Frankie Reynolds on 92-20-1139Hmwgzexoh Ql (U)NegativeSalem City Hospital Specific gravity (U) [Rel density]1.018[facility] Laboratory - Microbiology and Antimicrobial susceptibilityOrdered By: Franck Gagnon on 71-52-6365Tqfzyivk identified Cx Nom (Bld)NO GROWTH [address] [place], [place] [address]Bacteria identified Cx Nom (Bld)NO GROWTH [facility]Labor[facility] - Specimen informationOrdered By: Frankie Reynolds on 43-86-1939Ssytg (U)lightyellowSalem City Hospital Laboratory - UrinalysisOrdered By: Frankie Reynolds on 64-29-3998Ttyccmt Ql (U) PositiveSalem City HospitalProtein Ql (U)TraceSalem City HospitalMRSA - MSSA Nasal PCRon 18-14-2616EXHS - MSSA Nasal PCRNormalThe [facility] Physician GroupComment on above:Performed By: #### MRSA - MSSA PCR ####[facility] [address] [place] [address] USANo Panel InformationOrdered By: Michele Knigth on 33-81-6867Ikiow Screen MRSA/MSSA [facility] HospitalNo Panel InformationOrdered By: Franck Gagnon on 17-27-9966XB GROWTH 5 DAYSSalem City HospitalNO GROWTH DAYS [facility] HospitalNo Panel InformationOrdered By: Frankie Reynolds on 62-43-7216Marjo Collection TypeSee commentSalem City Hospital Comment on above:naUrine Glucose (UA)NormalSalem City Hospital Urine Occult BloodSee commentSalem City HospitalComment on above: not doneUrine UrobilinogenNormalTrinity Health System West Campusee comment [facility] HospitallightyellowSal[facility] City Hospital clearSalem City HospitalNormalSal[facility] Hospital NegativeSal[facility] City Hospital1.018[facility] 5.5FJoint Township District Memorial HospitalTraceSalem City Hospital PositiveSalem City Hospital4+[facility] Urine Cultureon 91-98-1198Stupajlc identified Cx Nom (U)NormalThe Person [facility] Hospital Physician GroupComment on above:Performed By: #### RAGHAVENDRA, CUU ####[facility] [address] [place], [place] USAUrine cultureOrdered By: Franck Gagnon on 31-96-8451Rswhqjay identified Cx Nom (U) Enterococcus faecalisAbUniversity Hospitals Cleveland Medical CenterAlanine aminotransferase [Enzymatic activity/volume] in Serum or PlasmaOrdered By: Terence Steele on 74-44-2886KUT [Catalytic activity/Vol]6 U/LLow7-52[facility] HospitalComment on above:Performed By: #### CBC, CMP, PTT, PT ####[facility] [address] [place] [address] USAAlbumin [Mass/volume] in Serum or Plasma by Bromocresol green (BCG) dye binding metho Ordered By: Terence Steele on 49-02-9873Gzjuhkk BCG dye [Mass/Vol]3.5 g/dL3.5-5.7 [facility] HospitalAlkaline phosphatase [Enzymatic activity/volume] in Serum or PlasmaOrdered By: Terence Steele on 81-66-3186MLQ [Catalytic activity/Vol]157 U/IFtvo88-803OtyxwmecvSalem City Hospital Comment on above:Performed By: #### CBC, CMP, PTT, PT ####[facility] [address] [place] [address] USAAspartate aminotransferase [Enzymatic activity/volume] in Serum or PlasmaOrdered By: Terence Steele on 14-49-1133HQX [Catalytic activity/Vol]16 U/OWfmkgl58-64XdaozlxsiSalem City HospitalComment on above:Performed By: #### CBC, CMP, PTT, PT ####[facility] [address] [place] [address] [place] Basophils [#/volume] in Blood by Automated countOrdered By: Terence Steele on 35-68-4011Foicumjck (Bld) [#/Vol]0.0 10*3/uLNormal0.0-0.2FJoint Township District Memorial HospitalComment on above:Result Comment: PERFORMED BY:[address] [place], [place] [phone] MEDICAL DIRECTORMARY SONI M.D.Performed By: #### CBC, CMP, PTT, PT ####[address] [address] USABasophils/100 leukocytes in Blood by Automated countOrdered By: Terence Steele on 10-05-2024 Basophils/100 WBC (Bld)0.4 %Normal.[facility] HospitalComment on above:Performed By: #### CBC, CMP, PTT, PT ####[address] [address] USABilirubin.total [Mass/volume] in Serum or PlasmaOrdered By: Terence Steele on 21-46-4853Ahluuovjc [Mass/Vol]0.6 mg/dL Normal0.3-1.0[facility] HospitalComment on above:Performed By: #### CBC, CMP, PTT, PT ####[address] [address] USACT cervical spine wo [facility] 14-30-8167OL cervical spine wo conNSampson Regional Medical Center Physician GroupCT facial bones wo [facility] systemon 39-15-8742DU facial bones wo conNSampson Regional Medical Center Physician GroupCT head/brain wo [facility] 70-03-3347HY head/brain wo [facility] Calcium [Mass/volume] in Serum or PlasmaOrdered By: Terence Steele on 10-05-2024 Calcium [Mass/Vol]9.4 mg/dLNormal8.6-10.3FJoint [facility] District Memorial Hospital Comment on above:Performed By: #### CBC, CMP, PTT, PT ####[address] [address] USACarbon dioxide, total [Moles/volume] in Serum or PlasmaOrdered By: Terence Steele on 95-93-0014OI5 [Moles/Vol]25.9 mmol/JXoadkm03.0-31.0[facility] HospitalComment on above:Performed By: #### CBC, CMP, PTT, PT ####[address] [address] USAChloride [Moles/volume] in Serum or PlasmaOrdered By: Terence Steele on 15-20-5282Eagrxuik [Moles/Vol]102 mmol/LNormal 98-107Sal[facility] City HospitalComment on above:Performed By: #### CBC, CMP, PTT, PT ####[address] [address] USAComplete Blood Count Auto Diffon 34-41-0027Axsb Corpuscular HGB Conc 33.1 g/yXCdgjbl85.5-35.6[facility] Physician GroupComment on above:Performed By: #### CBC, CMP, PTT, PT ####[address] [address] USAMonocytes/100 WBC (Bld)19.41 %Normal0.00-20.00[facility] Physician GroupComment on above:Performed By: #### CBC, CMP, PTT, PT ####[address] [address] USANRBC% 0.2 /100{WBC}Normal0-0.5[facility] Physician GroupComment on above:Performed By: #### CBC, CMP, PTT, PT ####[address] [address] USAWhite Blood Count5.7 [CFU]/mLNormal4.1-10.5[facility] Physician GroupComment on above:Performed By: #### CBC, CMP, PTT, PT ####[address] [address] [place] Comprehensive Metabolic Panelon 77-73-4089Mlzwzeq [Mass/Vol]3.5 g/dLNormal 3.5-5.7[facility] Physician GroupComment on above:Performed By: #### CBC, CMP, PTT, PT ####[address] [place] [address] USACreatinine Clr Calc Hjtnrgej44.79NoCritical access hospital Physician Group Comment on above:Result Comment: PERFORMED BY:[address] [place], [place] [phone] MEDICAL DIRECTORMARY SONI M.D.Performed By: #### CBC, CMP, PTT, PT ####[address] [address] USAGFR/1.73 sq M.predicted MDRD (S/P/Bld) [Vol rate/Area]mL/min/{1.73_m2}NormalThe [facility] Physician [facility] HospitalComment on above:Performed By: #### CBC, CMP, PTT, PT ####[address] [place] Creatinine [Mass/volume] in Serum or PlasmaOrdered By: Terence Steele on 19-73-1056Ngifphqeva [Mass/Vol]1.11 mg/dLNormal0.70-1.30[facility] HospitalComment on above:Performed By: #### CBC, CMP, PTT, PT ####[address] [address] USAECG 12 lead ECGon 99-79-4572ZEJ 12 lead ECGDelray Medical Center Physician [facility] Eosinophils [#/volume] in Blood by Automated countOrdered By: Terence Steele on 57-05-5320Hodavruqyhm (Bld) [#/Vol]0.3 10*3/uLNormal0.0-0.45[facility] City HospitalComment on above:Performed By: #### CBC, CMP, PTT, PT ####[address] [place] Eosinophils/100 leukocytes in Blood by Automated countOrdered By: Terence Steele on 81-01-5591Ffsnxrmfvyi/100 WBC (Bld)4.7 %Normal.[facility] City HospitalComment on above:Performed By: #### CBC, CMP, PTT, PT ####[address] [address] USAErythrocyte distribution width [Ratio] by Automated countOrdered By: Terence Steele on 74-39-1777Zrhbbgqqebi distribution width (RBC) [Ratio]17.5 %High12.0-14.8 [facility] HospitalComment on above:Performed By: #### CBC, CMP, PTT, PT ####[address] [address] USAErythrocytes [#/volume] in Blood by Automated countOrdered By: Terence Steele on 17-40-7519BSX (Bld) [#/Vol]3.08 10*6/uLLow3.90-5.60[facility] HospitalComment on above:Performed By: #### CBC, CMP, PTT, PT ####[address] [address] USAGlucose [Mass/volume] in Serum or PlasmaOrdered By: Terence Steele on 17-54-5422Bdjwnfw [Mass/Vol]105 mg/xDMcfr75-899YqccgfsroSalem City HospitalComment on above:Result Comment: Random Glucose Reference Range is dependent on time and content of last meal. Glucose of more than 200 mg/dL in a nonstressed, ambulatory subject supports the diagnosis of Diabetes Mellitus. ADA recommended reference rangePerformed By: #### CBC, CMP, PTT, PT ####[address] [address] USAHematocrit [Volume Fraction] of Blood by Automated countOrdered By: Terence Steele on 89-38-3628Hbnvvufrcy (Bld) [Volume fraction] 28.3 %Low38.8-50.0[facility] HospitalComment on above:Performed By: #### CBC, CMP, PTT, PT ####[address] [address] USAHemoglobin [Mass/volume] in BloodOrdered By: Terence Steele on 93-48-2944Zkfnmtefpf (Bld) [Mass/Vol]9.3 g/dLLow13.0-17.0[facility] HospitalComment on above:Performed By: #### CBC, CMP, PTT, PT ####[address] [place] [address] USAINR in Platelet poor plasma by Coagulation assayOrdered By: Terence Steele on 10-05-2024 INR Coag (PPP) [Relative time]2.4 {INR}NormalSalem City Hospital Comment on above:INR Therapeutic Range A) Pre- and Peroperative OAT started two weeks before surgery. NOT HIP SURGERY: 1.5 - 2.5 HIP SURGERY: 2 - 3B) Primary and secondary prevention of venous THROMBOSIS: 2 - 3C) Active venous thrombosis, pulmonary embolismand prevention of recurrent venous thrombosis: 2 - 3D) Preve ntion of arterial thromboembolismincluding patients with mechanical heart valves: 3 - 4.5Result Comment: INR Therapeutic Range A) Pre- and Peroperative OAT started two weeks before surgery. NOT HIP SURGERY: 1.5 - 2.5 HIP SURGERY: 2 - 3 B) Primary and secondary prevention of venous THROMBOSIS: 2 - 3 C) Active venous thrombosis, pulmonary embolism and prevention of recurrent venous thromb osis: 2 - 3 D) Prevention of arterial thromboembolism including patients with mechanical heart valves: 3 - 4.5Performed By: #### CBC, CMP, PTT, PT ####[address] [place] [address] [place] Leukocytes [#/volume] corrected for nucleated erythrocytes in Blood by Automated counOrdered By: Terence Steele on 86-75-4125YNA corrected for nucl RBC Auto (Bld) [#/Vol]5.7 10*3/uL4.1-10.5FJoint Township District Memorial HospitalLeukocytes [#/volume] in Blood by Automated countOrdered By: Terence Steele on 15-47-3016QKB (Bld) [#/Vol]5.7 10*3/uLNormal4.1-10.5FJoint Township District Memorial HospitalComment on above:Performed By: #### CBC, CMP, PTT, PT ####[address] [place] [address] USALymphocytes [#/volume] in Blood by Automated countOrdered By: Terence Steele on 22-86-7561Srhiomlvuov (Bld) [#/Vol] 1.1 10*3/uLNormal1.00-4.8[facility] City HospitalComment on above: Performed By: #### CBC, CMP, PTT, PT ####[facility] [address] [place] [address] USALymphocytes/100 leukocytes in Blood by Automated countOrdered By: Terence Steele on 29-24-9839Lowfpwlaknr/100 WBC (Bld) 19.8 %Normal.[facility] City HospitalComment on above:Performed By: #### CBC, CMP, PTT, PT ####[address] [address] [address] [Entitic mass] by Automated countOrdered By: Terence Steele on 45-22-2302RSQ (RBC) [Entitic mass]30.3 leJjkkhf74.5-35.2 [facility] HospitalComment on above:Performed By: #### CBC, CMP, PTT, PT ####[address] [address] [address] [facility]HC Auto (RBC) [Mass/Vol]Ordered By: Terence Steele on 24-51-2187XRTT (RBC) [Mass/Vol]33.1 g/dL32.5-35.6FJoint Township District Memorial HospitalMCV [Entitic volume] by Automated countOrdered By: Terence Steele on 15-42-2924YKH (RBC) [Entitic vol]91.7 mBSsxpqs42.5-101[facility] HospitalComment on above:Performed By: #### CBC, CMP, PTT, PT ####[facility] [address] [place] [address] USAMonocyte distribution width [Entitic volume] in Blood by AutomatedOrdered By: Terence Steele on 25-69-2953Hsodikec distribution width Auto (Bld) [Entitic vol]19.41 %0.00-20.00Sal[facility] City HospitalMonocytes [#/volume] in Blood by Automated countOrdered By: Terence Steele on 46-08-5024Ztpfuowqr (Bld) [#/Vol]0.6 10*3/uLNormal0.0-0.8[facility] HospitalComment on above:Performed By: #### CBC, CMP, PTT, PT ####[facility] [place] [address] [place] Monocytes/100 leukocytes in Blood by Automated countOrdered By: Terence Steele on 30-70-4098Smzbtskla/100 WBC (Bld)9.9 %Normal.[facility] Comment on above:Performed By: #### CBC, CMP, PTT, PT ####[address] [place] [address] USANeutrophils [#/volume] in Blood by Automated countOrdered By: Terence Steele on 44-84-1892Mybuaiwuboj (Bld) [#/Vol]3.7 10*3/uLNormal1.8-7.7FJoint Township District Memorial HospitalComment on above:Performed By: #### CBC, CMP, PTT, PT ####[address] [place] [address] USANeutrophils/100 leukocytes in Blood by Automated countOrdered By: Terence Steele on 29-80-4184Afkrpqvxsho/100 WBC (Bld) 65.2 %Normal.[facility] City HospitalComment on above:Performed By: #### CBC, CMP, PTT, PT ####[address] [address] USANo Panel InformationOrdered By: Terence Steele on 10-05-2024> 60.0 mL/MinSalem City Hospital44.79Salem City HospitalNucleated erythrocytes [Presence] in Blood by Automated count Ordered By: Terence Steele on 28-25-7185Amsuvxeis RBC Auto Ql (Bld)0.2 /100{WBC} 0-0.5FJoint Township District Memorial HospitalPartial Thromboplastin Timeon 10-05-2024 aPTT Coag (Bld) [Time]41.0 sHigh25.1-36.5[facility] Physician GroupComment on above:Result Comment: A hematocrit value greater than 55% may lead to inaccurate results in coagulation testing. Patients having hematocrit values >55% require a special collection tube for coagulation studies. Please contact the laboratory at [phone] for redraw instructions.PERFORMED BY:[address] [place], [place] [phone] MEDICAL DIRECTORMARY SONI M.D.Performed By: #### CBC, CMP, PTT, PT ####[address] [address] [facility] Platelet mean volume [Entitic volume] in Blood by Automated countOrdered By: Terence Steele on 92-06-7162Vbxlcjge mean volume (Bld) [Entitic vol]7.7 fLNormal 6.6-10.1FJoint Township District Memorial HospitalComment on above:Performed By: #### CBC, CMP, PTT, PT ####[address] [address] USAPlatelets [#/volume] in Blood by Automated countOrdered By: Terence Steele on 78-87-8520Pfrguuijm (Bld) [#/Vol]217 10*3/qLVyfkhu606-727DjhdgfiocSalem City HospitalComment on above:Performed By: #### CBC, CMP, PTT, PT ####[address] [facility] Potassium [Moles/volume] in Serum or PlasmaOrdered By: Terence Steele on 85-47-5801Noqcprlgw [Moles/Vol]4.2 mmol/LNormal3.5-5.1FJoint Township District Memorial HospitalComment on above:Performed By: #### CBC, CMP, PTT, PT ####[address] [address] USAProtein [Mass/volume] in Serum or PlasmaOrdered By: Terence Steele on 00-21-6248Dqcqehq [Mass/Vol]6.7 g/dLNormal6.4-8.9[facility] HospitalComment on above:Performed By: #### CBC, CMP, PTT, PT ####[address] [address] USAProthrombin time (PT)Ordered By: Terence Steele on 21-26-7998UV Coag (PPP) [Time]26.6 sHigh9.0-12.9[facility] City HospitalComment on above:A hematocrit value greater than 55% may lead to inaccurate results in coagulation testing. Patientshaving hematocrit values >55% require a special collection tube for coagulation studies. Please contact the laboratory at [phone] for redraw instructions.Result Comment: A hematocrit value greater than 55% may lead to inaccurate results in coagulation testing. Patients having hematocrit values >55% require a special collection tube for coagulation studies. Please contact the laboratory at [phone] for redraw instructions.Performed By: #### CBC, CMP, PTT, PT ####[address] [place] [address] USASerum globulin measurement by calculation (mass/volume)Ordered By: Terence Steele on 75-92-5929Yysfnnyo (S) [Mass/Vol]3.2 g/dLNormalSalem City HospitalComment on above: Performed By: #### CBC, CMP, PTT, PT ####[address] USASerum or plasma albumin/globulin mass ratio Ordered By: Terence Steele on 42-66-3849Wyvywuh/Globulin [Mass ratio]1.1 {ratio} NormalSalem City HospitalComsurgeons choice medical center on above:Performed By: #### CBC, CMP, PTT, PT ####[address] USASerum or plasma anion gap determinationOrdered By: Terence Steele on 09-98-9794Dvjkq gap [Moles/Vol]13.3 mmol/LNormal6.0-15.0[facility] HospitalComment on above:Performed By: #### CBC, CMP, PTT, PT ####[address] [address] USASodium [Moles/volume] in Serum or PlasmaOrdered By: Terence Steele on 36-86-0898Erlpnd [Moles/Vol]137 mmol/GTaxalc353-198ZnfiajsntSalem City HospitalComment on above:Performed By: #### CBC, CMP, PTT, PT ####[address] [address] USAUrea nitrogen [Mass/volume] in Serum or PlasmaOrdered By: Terence Steele on 01-92-3971Ylwb nitrogen [Mass/Vol]18 mg/dL Normal7-25Sal[facility] City HospitalComment on above:Performed By: #### CBC, CMP, PTT, PT ####[address] [address] USAaPTT in Platelet poor plasma by Coagulation assayOrdered By: Terence Steele on 67-39-6124qTGM Coag (PPP) [Time]41.0 sHigh25.1-36.5FJoint Township District Memorial HospitalComment on above:A hematocrit value greater than 55% may lead to inaccurate results in coagulation testing. Patientshaving hematocrit values >55% require a special collection tube for coagulation studies. Please contact the laboratory at [phone] for redraw instructions.Basic Metabolic Panelon 31-00-9102DTI/1.73 sq M.predicted MDRD (S/P/Bld) [Vol rate/Area]mL/min/{1.73_m2} NormalThe Person Memorial Hospital Physician GroupComment on above:Performed By: #### CBC, BMP ####[address] [address] [place] Basophils [#/volume] in Blood by Automated countOrdered By: Bhupinder Mcintyre on 74-96-2413Pywclcaol (Bld) [#/Vol]0.0 10*3/uLNormal0.0-0.2FJoint Township District Memorial HospitalComment on above:Result Comment: PERFORMED BY:[address] [place], [place] [phone] MEDICAL MARY KATE SONI M.D.Performed By: #### CBC, BMP ####[address] [address] USABasophils/100 leukocytes in Blood by Automated countOrdered By: Bhupinder Mcintyre on 20-30-9268Vfpetxjra/100 WBC (Bld)1.0 %Normal.[facility] City HospitalComment on above:Performed By: #### CBC, BMP ####[address] [address] USACalcium [Mass/volume] in Serum or PlasmaOrdered By: Bhupinder Mcintyre on 68-73-4506Odiasyj [Mass/Vol]8.7 mg/dLNormal8.6-10.3FJoint Township District Memorial HospitalComment on above:Result Comment: PERFORMED BY:[address] [place], [place] [phone] MEDICAL DIRECTORMARY SONI M.D.Performed By: #### CBC, BMP ####[address] [address] USACarbon dioxide, total [Moles/volume] in Serum or PlasmaOrdered By: Bhupinder Mcintyre on 14-24-7307FO5 [Moles/Vol]29.5 mmol/PIdsnrf50.0-31.0[facility] HospitalComment on above:Performed By: #### CBC, BMP ####[address] [address] USAChloride [Moles/volume] in Serum or PlasmaOrdered By: Bhupinder Mcintyre on 62-46-6012Fxmuyeff [Moles/Vol]103 mmol/YBobhet47-237WpmuauskzSalem City HospitalComment on above:Performed By: #### CBC, BMP ####[address] [address] [facility] Complete Blood Count Auto Diffon 92-51-8937Estw Corpuscular HGB Conc32.5 g/dL Kpqzhb01.5-35.6[facility] Physician GroupComment on above:Performed By: #### CBC, BMP ####[address] [address] USANRBC%0.2 /100{WBC}Normal0-0.5[facility] Physician GroupComment on above: Performed By: #### CBC, BMP ####[address] [place] [address] USAWhite Blood Count4.5 [CFU]/mLNormal4.1-10.5[facility] Physician GroupComment on above:Performed By: #### CBC, BMP ####[address] [place] Creatinine [Mass/volume] in Serum or PlasmaOrdered By: Bhupinder Mcintyre on 09-24-2024 Creatinine [Mass/Vol]1.08 mg/dLNormal0.70-1.30[facility] Comment on above:Performed By: #### CBC, BMP ####[address] USAEosinophils [#/volume] in Blood by Automated countOrdered By: Bhupinder Mcintyre on 81-19-6668Nyvcaxygjnn (Bld) [#/Vol]0.3 10*3/uLNormal0.0-0.45[facility] HospitalComment on above:Performed By: #### CBC, BMP ####[address] USAEosinophils/100 leukocytes in Blood by Automated countOrdered By: Bhupinder Mcintyre on 94-01-2498Hwmokukrnfu/100 WBC (Bld)7.2 %Normal.[facility] HospitalComment on above:Performed By: #### CBC, BMP ####[address] USAErythrocyte distribution width [Ratio] by Automated countOrdered By: Bhupinder Mcintyre on 09-24-2024 Erythrocyte distribution width (RBC) [Ratio]17.4 %High12.0-14.8[facility] HospitalComment on above:Performed By: #### CBC, BMP ####[address] [place] Erythrocytes [#/volume] in Blood by Automated countOrdered By: Bhupinder Mcintyre on 56-67-2997RSZ (Bld) [#/Vol]2.99 10*6/uLLow3.90-5.60[facility] HospitalComment on above:Performed By: #### CBC, BMP ####[address] [address] USAGlucose [Mass/volume] in Serum or PlasmaOrdered By: Bhupinder Mcintyre on 82-12-3239Euwvucf [Mass/Vol]80 mg/dLNormal 70-100[facility] HospitalComment on above:ADA recommended reference rangeRandom Glucose Reference Range is dependent on time and content of last meal. Glucose of more than 200 mg/dL in a nonstressed, ambulatory subject supports the diagnosisof Diabetes Mellitus.Result Comment: Random Glucose Reference Range is dependent on time and content of last meal. Glucose of more than 200 mg/dL in a nonstressed, ambulatory subject supports the diagnosis of Diabetes Mellitus. ADA recommended reference rangePerformed By: #### CBC, BMP ####[address] [address] USAHematocrit [Volume Fraction] of Blood by Automated countOrdered By: Bhupinder Mcintyre on 12-53-1669Qdisohyrmp (Bld) [Volume fraction]27.6 %Low38.8-50.0 [facility] HospitalComment on above:Performed By: #### CBC, BMP ####[address] [address] [place] Hemoglobin [Mass/volume] in BloodOrdered By: Bhupinder Mcintyre on 08-61-2723Rsnxzntjjv (Bld) [Mass/Vol]9.0 g/dLLow13.0-17.0[facility] HospitalComment on above:Performed By: #### CBC, BMP ####[address] [address] USALeukocytes [#/volume] corrected for nucleated erythrocytes in Blood by Automated counOrdered By: Bhupinder Mcintyre on 79-30-7390UHL corrected for nucl RBC Auto (Bld) [#/Vol]4.5 10*3/uL4.1-10.5FJoint Township District Memorial HospitalLeukocytes [#/volume] in Blood by Automated countOrdered By: Bhupinder Mcintyre on 04-65-5906DQY (Bld) [#/Vol]4.5 10*3/uLNormal4.1-10.5FJoint Township District Memorial HospitalComment on above:Performed By: #### CBC, BMP ####[address] [address] [place] Lymphocytes [#/volume] in Blood by Automated countOrdered By: Bhupinder Mcintyre on 94-44-9253Sbtsujtbmaw (Bld) [#/Vol]1.3 10*3/uLNormal1.00-4.8[facility] HospitalComment on above:Performed By: #### CBC, BMP ####[address] [address] USALymphocytes/100 leukocytes in Blood by Automated countOrdered By: Bhupinder Mcintyre on 09-24-2024 Lymphocytes/100 WBC (Bld)29.5 %Normal.[facility] HospitalComment on above:Performed By: #### CBC, BMP ####[address] [address] [facility] [Entitic mass] by Automated countOrdered By: Bhupinder Mcintyre on 97-29-4568ZCH (RBC) [Entitic mass]30.0 eqZenicl57.5-35.2 [facility] HospitalComment on above:Performed By: #### CBC, BMP ####[address] [address] [facility] Auto (RBC) [Mass/Vol]Ordered By: Bhupinder Mcintyre on 75-59-1779QNAY (RBC) [Mass/Vol] 32.5 g/dL32.5-35.6FLancaster Municipal HospitalV [Entitic volume] by Automated countOrdered By: Bhupinder Mcintyre on 91-77-5025CIZ (RBC) [Entitic vol]92.3 fL Esolxb03.5-101[facility] HospitalComment on above:Performed By: #### CBC, BMP ####[address] [address] USAMonocytes [#/volume] in Blood by Automated countOrdered By: Bhupinder Mcintyre on 20-82-6165Tgbxltcyi (Bld) [#/Vol]0.4 10*3/uLNormal0.0-0.8[facility] HospitalComment on above:Performed By: #### CBC, BMP ####[address] [place] [address] USAMonocytes/100 leukocytes in Blood by Automated countOrdered By: Bhupinder Mcintyre on 09-24-2024 Monocytes/100 WBC (Bld)8.7 %Normal.[facility] HospitalComment on above:Performed By: #### CBC, BMP ####[address] USANeutrophils [#/volume] in Blood by Automated count Ordered By: Bhupinder Mcintyre on 90-74-8672Rblfwqignfh (Bld) [#/Vol]2.4 10*3/uLNormal 1.8-7.7FJoint Township District Memorial HospitalComment on above:Performed By: #### CBC, BMP ####[address] [place] Neutrophils/100 leukocytes in Blood by Automated countOrdered By: Bhupinder Mcintyre on 43-30-9812Zhvleauwbmy/100 WBC (Bld)53.6 %Normal.[facility] HospitalComment on above:Performed By: #### CBC, BMP ####[address] USANo Panel InformationOrdered By: Bhupinder Mcintyre on 58-83-8028Dgfeknaxm GFR (CKD-EPI)> 60.0 mL/MinSalem City HospitalPharmacy Creatinine Clearance (ChemN/[facility]> 60.0 mL/MinSalem City HospitalN/[facility] Memorial HospitalNucleated erythrocytes [Presence] in Blood by Automated countOrdered By: Bhupinder Mcintyre on 88-89-8400Ujwzxlcgc RBC Auto Ql (Bld)0.2 /100{WBC} 0-0.5FJoint Township District Memorial HospitalPlatelet mean volume [Entitic volume] in Blood by Automated countOrdered By: Bhupinder Mcintyre on 83-23-9597Olbsdqia mean volume (Bld) [Entitic vol]8.2 fLNormal6.6-10.1FJoint Township District Memorial HospitalComment on above:Performed By: #### CBC, BMP ####[address] [address] USAPlatelets [#/volume] in Blood by Automated countOrdered By: Bhupinder Mcintyre on 43-70-9858Hotawdhbo (Bld) [#/Vol]188 10*3/uLNormal 150-450[facility] HospitalComment on above:Performed By: #### CBC, BMP ####[address] [address] [place] Potassium [Moles/volume] in Serum or PlasmaOrdered By: Bhupinder Mcintyre on 09-24-2024 Potassium [Moles/Vol]4.3 mmol/LNormal3.5-5.1FJoint Township District Memorial Hospital Comment on above:Performed By: #### CBC, BMP ####[address] [address] USASerum or plasma anion gap determinationOrdered By: Bhupinder Mcintyre on 50-15-6190Gzvps gap [Moles/Vol]9.8 mmol/L Normal6.0-15.0[facility] HospitalComment on above:Performed By: #### CBC, BMP ####[address] [address] USASodium [Moles/volume] in Serum or PlasmaOrdered By: Bhupinder Mcintyre on 97-07-4001Htyssl [Moles/Vol]138 mmol/CSkslrf231-236OlbjqnfpySalem City HospitalComment on above:Performed By: #### CBC, BMP ####[address] [address] USAUrea nitrogen [Mass/volume] in Serum or PlasmaOrdered By: Bhupinder Mcintyre on 13-28-9024Tgil nitrogen [Mass/Vol]19 mg/dLNormal7-25[facility] HospitalComment on above:Performed By: #### CBC, BMP ####[address] [address] USAUrine Cultureon 15-98-7335Dgghngjy identified Cx Nom (U)NormalThe Person Memorial Hospital Physician GroupComment on above:Performed By: #### CUU ####[address] [address] USAUrine cultureOrdered By: Opal Ga on 57-84-9064Bgkznamh identified Cx Nom (U)Achromobacter xylosoxidansKettering Health Washington TownshipUrine Cultureon 08-27-2024 Bacteria identified Cx Nom (U)NormalThe Person Memorial Hospital Physician GroupComment on above:Performed By: #### CUU ####[address] [address] USAUrine cultureOrdered By: Opal Ga on 08-27-2024 Bacteria identified Cx Nom (U)Citrobacter freundii complexAbUniversity Hospitals Cleveland Medical CenterBacteria identified Cx Nom (U)Pseudomonas aeruginosa AbnormalSalem City HospitalCreatinineon 12-68-1964TDU/1.73 sq M.predicted MDRD (S/P/Bld) [Vol rate/Area]mL/min/{1.73_m2}NormalThe Person Memorial Hospital Physician GroupComment on above:Result Comment: PERFORMED BY:[address] [place], [place] [phone] MEDICAL DIRECTORJAJA CATES M.D.Performed By: #### DESTINY ANTONIOAT ####[address] [address] USACreatinine [Mass/volume] in Serum or PlasmaOrdered By: Sandip Aguirre on 07-23-2024 Creatinine [Mass/Vol]1.06 mg/dLNormal0.70-1.30[facility] Comment on above:Performed By: #### DESTINY ANTONIOAT ####[address] [address] USAErythrocyte Sedimentation Rateon 64-40-7441ZYQ (Bld) [Velocity]63 mm/hHigh0-19[facility] Comment on above:Result Comment: PERFORMED BY:[address] [place], [place] [phone] MEDICAL DIRECTORJAJA VILLAGOMEZCINDY MariePerformed By: #### ESR ####[address] [address] USAErythrocyte sedimentation rate by Photometric methodOrdered By: Sandip Aguirre on 43-29-8282ULE Photometric method (Bld) [Velocity]63 mm/hrHigh0Salem City HospitalNo Panel InformationOrdered By: Sandip Aguirre on 51-81-3403Trheewsjj GFR (CKD-EPI)> 60.0 mL/MinSalem City HospitalPharmacy Creatinine Clearance (ChemN/[facility]> 60.0 mL/MinSalem City HospitalN/[facility] Memorial HospitalVancomycin [Mass/volume] in Serum or Plasma --troughOrdered By: Sandip Aguirre on 92-28-8768Pygxqawwva trough [Mass/Vol]18.2 ug/mL10.0-20.0[facility] City HospitalComment on above:Last dose: -Vancomycin,Troughon 07-23-2024 Vancomycin,Sedcmh27.2 ug/pFWbzzsv97.0-20.0[facility] Physician GroupComment on above:Result Comment: Last dose: -PERFORMED BY:[address] [place], [place] [phone] MEDICAL DIRECTORJAJA VILLAGOMEZCINDY MariePerformed By: #### TALHA ANTONIO ####[address] [address] USABasophils Auto (Bld) [#/Vol]Ordered By: Mario Jordan on 74-02-3624Scpjikrqi (Bld) [#/Vol]Automated basophil count0.0-0.2FJoint Township District Memorial HospitalBasophils [#/volume] in Blood by Automated countOrdered By: Mario Jordan on 20-96-5328Tvaqhawbb (Bld) [#/Vol]0.1 10*3/uLNormal0.0-0.2FJoint Township District Memorial HospitalComment on above:Result Comment: PERFORMED BY:[address] [place], [place] [phone] MEDICAL DIRECTORJAJA WHITE M.D.Performed By: #### CBC ####[address] [address] USABasophils/100 WBC Auto (Bld)Ordered By: Mario Jordan on 57-60-4526Jjvdlgmwt/100 WBC (Bld)Automated basophil %.[facility] HospitalBasophils/100 leukocytes in Blood by Automated count Ordered By: Mario Jordan on 48-03-7413Czwxdefag/100 WBC (Bld)0.9 %Normal. [facility] City HospitalComment on above:Performed By: #### CBC ####[place] [address] [facility] Complete Blood Count Auto Diffon 42-91-7049Cnph Corpuscular HGB Conc32.8 g/dL Aympiz74.5-35.6[facility] Physician GroupComment on above:Performed By: #### CBC ####[address] [address] [place] NRBC%0.0 /100{WBC}Normal0-0.5[facility] Physician GroupComment on above: Performed By: #### CBC ####[place] [address] USAEosinophils Auto (Bld) [#/Vol]Ordered By: Mario Jordan on 33-73-8377Stmmgzirhwo (Bld) [#/Vol]Automated eosinophil count0.0-0.45 [facility] HospitalEosinophils [#/volume] in Blood by Automated countOrdered By: Mario Jordan on 64-65-3228Rxobwjihfqk (Bld) [#/Vol]0.3 10*3/uL Normal0.0-0.45[facility] City HospitalComment on above:Performed By: #### CBC ####[place] [address] USAEosinophils/100 WBC Auto (Bld)Ordered By: Mario Jordan on 07-17-2024 Eosinophils/100 WBC (Bld)Automated eosinophil %.[facility] HospitalEosinophils/100 leukocytes in Blood by Automated countOrdered By: Mario Jordan on 47-61-3505Lqyxqvdjvix/100 WBC (Bld)4.8 %Normal.[facility] City HospitalComment on above:Performed By: #### CBC ####[place] [address] USAErythrocyte distribution width Auto (RBC) [Ratio]Ordered By: Mario Jordan on 21-50-5267Erahfkxpksi distribution width (RBC) [Ratio]Erythrocyte distribution width [Ratio] by Automated count High12.0-14.8[facility] HospitalErythrocyte distribution width [Ratio] by Automated countOrdered By: Mario Jordan on 63-51-5516Jzmwsdvklnh distribution width (RBC) [Ratio]18.5 %High12.0-14.8[facility] City HospitalComment on above:Performed By: #### CBC ####[place] [address] USAErythrocytes [#/volume] in Blood by Automated countOrdered By: Mario Jordan on 84-65-2617YNC (Bld) [#/Vol]2.88 10*6/uLLow3.90-5.60[facility] HospitalComment on above:Performed By: #### CBC ####[place] [address] USAHematocrit Auto (Bld) [Volume fraction]Ordered By: Mario Jordan on 70-52-6863Annemfjyuv (Bld) [Volume fraction]Hematocrit [Volume Fraction] of Blood by Automated yqeyaNjf82.8-50.0[facility] HospitalHematocrit [Volume Fraction] of Blood by Automated countOrdered By: Mario Jordan on 62-94-1221Jqnwrvlzsz (Bld) [Volume fraction]25.8 %Low38.8-50.0[facility] HospitalComment on above:Performed By: #### CBC ####[address] [place] [address] USAHemoglobin [Mass/volume] in BloodOrdered By: Mario Jordan on 23-85-7676Pghxherpsf (Bld) [Mass/Vol]Hemoglobin [Mass/volume] in PlxxcDri69.0-17.0[facility] HospitalHemoglobin (Bld) [Mass/Vol]8.5 g/dLLow13.0-17.0[facility] HospitalComment on above:Performed By: #### CBC ####[place] [address] USALeukocytes [#/volume] corrected for nucleated erythrocytes in Blood by Automated counOrdered By: Mario Jordan on 16-60-4183AXL corrected for nucl RBC Auto (Bld) [#/Vol]Leukocytes [#/volume] corrected for nucleated erythrocytes in Blood by Automated coun4.1-10.5FJoint Township District Memorial HospitalWBC corrected for nucl RBC Auto (Bld) [#/Vol]7.1 10*3/uL4.1-10.5 [facility] HospitalLeukocytes [#/volume] in Blood by Automated countOrdered By: Mario Jordan on 91-52-2062FRA (Bld) [#/Vol]7.1 10*3/uLNormal 4.1-10.5FJoint Township District Memorial HospitalComment on above:Performed By: #### CBC ####[place] [address] [place] Lymphocytes Auto (Bld) [#/Vol]Ordered By: Mario Jordan on 77-78-1647Inseizyndll (Bld) [#/Vol]Lymphocytes [#/volume] in Blood by Automated count1.00-4.8[facility] HospitalLymphocytes [#/volume] in Blood by Automated count Ordered By: Mario Jordan on 38-09-0108Sqbcmhluufm (Bld) [#/Vol]1.5 10*3/uLNormal 1.00-4.8[facility] HospitalComment on above:Performed By: #### CBC ####[address] [address] [facility] Lymphocytes/100 WBC Auto (Bld)Ordered By: Mario Jordan on 07-17-2024 Lymphocytes/100 WBC (Bld)Lymphocytes/100 leukocytes in Blood by Automated count. [facility] HospitalLymphocytes/100 leukocytes in Blood by Automated countOrdered By: Mario Jordan on 55-51-9211Ydctskmqnri/100 WBC (Bld) 20.4 %Normal.[facility] City HospitalComment on above:Performed By: #### CBC ####[facility] [place] [address] [facility] Auto (RBC) [Entitic mass]Ordered By: Mario Jordan on 26-63-3202OKV (RBC) [Entitic mass]MCH [Entitic mass] by Automated count27.5-35.2FOhioHealth Doctors Hospital [Entitic mass] by Automated countOrdered By: Mario Jordan on 34-30-6279QYK (RBC) [Entitic mass]29.4 ykPeenfb45.5-35.2FJoint Township District Memorial HospitalComment on above:Performed By: #### CBC ####[place] [address] [place] [id number] [facility] Auto (RBC) [Mass/Vol] Ordered By: Mario Jordan on 66-84-5901SDVG (RBC) [Mass/Vol]MCHC [Mass/volume] by Automated count32.5-35.6FLancaster Municipal HospitalHC (RBC) [Mass/Vol] 32.8 g/dL32.5-35.6FAkron Children's Hospital Auto (RBC) [Entitic vol] Ordered By: Mario Jordan on 70-18-7619FRO (RBC) [Entitic vol]MCV [Entitic volume] by Automated count83.5-101[facility] [Entitic volume] by Automated countOrdered By: Mario Jordan on 27-16-5875SSS (RBC) [Entitic vol] 89.8 lWCenqoz77.5-101Sal[facility] City HospitalComment on above:Performed By: #### CBC ####[place] [address] USAMonocytes Auto (Bld) [#/Vol]Ordered By: Mario Jordan on 07-17-2024 Monocytes (Bld) [#/Vol]Automated blood monocyte count0.0-0.8[facility] HospitalMonocytes [#/volume] in Blood by Automated countOrdered By: Mario Jordan on 19-63-3728Bwdhchbip (Bld) [#/Vol]0.6 10*3/uLNormal0.0-0.8[facility] HospitalComment on above:Performed By: #### CBC ####[place] [address] USAMonocytes/100 WBC Auto (Bld)Ordered By: Mario Jordan on 26-70-5814Nmzrnptbv/100 WBC (Bld)Automated monocyte %.[facility] HospitalMonocytes/100 leukocytes in Blood by Automated countOrdered By: Mario Jordan on 27-70-9273Ofavbltmm/100 WBC (Bld)8.0 %Normal.[facility] City HospitalComment on above:Performed By: #### CBC ####[address] Neutrophils Auto (Bld) [#/Vol]Ordered By: Mario Jordan on 56-64-0578Rbosxzytwaf (Bld) [#/Vol]Neutrophils [#/volume] in Blood by Automated count1.8-7.7FJoint Township District Memorial HospitalNeutrophils [#/volume] in Blood by Automated countOrdered By: Mario Jordan on 64-90-8463Fsqphgvgdpp (Bld) [#/Vol]4.7 10*3/uLNormal1.8-7.7 [facility] HospitalComment on above:Performed By: #### CBC ####[address] Neutrophils/100 WBC Auto (Bld)Ordered By: Mario Jordan on 07-17-2024 Neutrophils/100 WBC (Bld)Automated neutrophil %.[facility] HospitalNeutrophils/100 leukocytes in Blood by Automated countOrdered By: Mario Jordan on 66-68-8690Fpnupopkwlq/100 WBC (Bld)65.9 %Normal.[facility] City HospitalComment on above:Performed By: #### CBC ####[place] [address] [place] [id number] USANucleated erythrocytes [Presence] in Blood by Automated countOrdered By: Mario Jordan on 07-17-2024 Nucleated RBC Auto Ql (Bld)Nucleated erythrocytes [Presence] in Blood by Automated count0-0.5FJoint Township District Memorial HospitalNucleated RBC Auto Ql (Bld) 0.0 /100{WBC}0-0.5FJoint Township District Memorial HospitalPlatelet mean volume Auto (Bld) [Entitic vol]Ordered By: Mario Jordan on 08-63-8061Ubrdcyfu mean volume (Bld) [Entitic vol]Platelet mean volume [Entitic volume] in Blood by Automated count6.6-10.1FJoint Township District Memorial HospitalPlatelet mean volume [Entitic volume] in Blood by Automated countOrdered By: Mario Jordan on 55-56-9725Ixiaezww mean volume (Bld) [Entitic vol]8.2 fLNormal6.6-10.1FJoint Township District Memorial HospitalComment on above:Performed By: #### CBC ####[place] [address] USAPlatelets Auto (Bld) [#/Vol]Ordered By: Mario Jordan on 85-94-2295Lggjdnvep (Bld) [#/Vol]Platelets [#/volume] in Blood by Automated mvndu740-440PdxufvqivSalem City HospitalPlatelets [#/volume] in Blood by Automated countOrdered By: Mario Jordan on 07-17-2024 Platelets (Bld) [#/Vol]164 10*3/gQRtefmg268-388Wqzhznxtb[address] [place] [address] Comment on above:Performed By: #### CBC ####[place] [address] USARBC Auto (Bld) [#/Vol]Ordered By: Mario Jordan on 35-53-9092EZK (Bld) [#/Vol]Erythrocytes [#/volume] in Blood by Automated countLow3.90-5.60[facility] HospitalWBC Auto (Bld) [#/Vol]Ordered By: Mario Jordan on 49-41-1017YZJ (Bld) [#/Vol]Leukocytes [#/volume] in Blood by Automated count4.1-10.5FJoint Township District Memorial HospitalAlanine aminotransferase [Enzymatic activity/volume] in Serum or PlasmaOrdered By: Mario Jordan on 46-08-1509KEW [Catalytic activity/Vol]Alanine aminotransferase [Enzymatic activity/volume] in Serum or Plasma7-52[facility] HospitalALT [Catalytic activity/Vol]14 U/LNormal7-52[facility] City HospitalComment on above:Performed By: #### CBC, CMP ####[facility] [address] [place] [address] USAAlbumin [Mass/volume] in Serum or Plasma by Bromocresol green (BCG) dye binding methoOrdered By: Mario Jordan on 07-16-2024 Albumin BCG dye [Mass/Vol]Albumin [Mass/volume] in Serum or Plasma by Bromocresol green (BCG) dye binding methoLow3.5-5.7FJoint Township District Memorial HospitalAlbumin BCG dye [Mass/Vol]2.8 g/dLLow3.5-5.7FJoint Township District Memorial HospitalAlkaline phosphatase [Enzymatic activity/volume] in Serum or PlasmaOrdered By: Mario Jordan on 96-76-6725MSG [Catalytic activity/Vol]Alkaline phosphatase [Enzymatic activity/volume] in Serum or Pumpdf76-285JxqfzoodwSalem City HospitalALP [Catalytic activity/Vol]100 U/WTougss59-427RoymxnclgSalem City HospitalComment on above:Performed By: #### CBC, CMP ####[facility] [address] [place] [address] USAAspartate aminotransferase [Enzymatic activity/volume] in Serum or PlasmaOrdered By: Mario Jordan on 45-24-0781FVX [Catalytic activity/Vol]Aspartate aminotransferase [Enzymatic activity/volume] in Serum or Xtvazb99-07NfirjbpirSalem City HospitalAST [Catalytic activity/Vol]22 U/YMbwctx49-02IkkmbygwnSalem City Hospital Comment on above:Performed By: #### CBC, CMP ####[facility] [address] [place] [address] USABilirubin.total [Mass/volume] in Serum or PlasmaOrdered By: Mario Jordan on 82-45-9437Uvrznjosp [Mass/Vol] Bilirubin.total [Mass/volume] in Serum or Plasma0.3-1.0[facility] HospitalBilirubin [Mass/Vol]0.4 mg/dLNormal0.3-1.0[facility] HospitalComment on above:Performed By: #### CBC, CMP ####[facility] [address] [place] [address] USACalcium [Mass/volume] in Serum or PlasmaOrdered By: Mario Jordan on 93-04-2958Cdfuzgb [Mass/Vol] Calcium [Mass/volume] in Serum or PlasmaLow8.6-10.3FJoint Township District Memorial HospitalCalcium [Mass/Vol]8.2 mg/dLLow8.6-10.3FJoint Township District Memorial Hospital Comment on above:Performed By: #### CBC, CMP ####[facility] [address] [place] [address] USACarbon dioxide, total [Moles/volume] in Serum or PlasmaOrdered By: Mario Jordan on 32-33-2944CM7 [Moles/Vol]Carbon dioxide, total [Moles/volume] in Serum or Xgldlr95.0-31.0[facility] HospitalCO2 [Moles/Vol]26.5 mmol/REutzxm91.0-31.0[facility] HospitalComment on above:Performed By: #### CBC, CMP ####[facility] [address] [place] [address] USAChloride [Moles/volume] in Serum or PlasmaOrdered By: Mario Jordan on 79-41-6477Ytffcxtn [Moles/Vol]Chloride [Moles/volume] in Serum or Zptcit48-558NkmozmlgzSalem City HospitalChloride [Moles/Vol]104 mmol/DHyixzk67-148OdfdovrofSalem City HospitalComment on above:Performed By: #### CBC, CMP ####[address] [address] USAComplete Blood Count Auto Diffon 79-19-8514Lsqjytasp (Bld) [#/Vol]0.0 10*3/uLNormal0.0-0.2[facility] Physician GroupComment on above:Result Comment: PERFORMED BY:[address], [place] [phone] MEDICAL DIRECTORJAJA CATES M.D.Performed By: #### CBC, CMP ####[place] [address] [place] Basophils/100 WBC (Bld)0.6 %Normal.[facility] Physician GroupComment on above:Performed By: #### CBC, CMP ####[address] [address] USAEosinophils (Bld) [#/Vol]0.3 10*3/uLNormal0.0-0.45 [facility] Physician GroupComment on above:Performed By: #### CBC, CMP ####[place] [address] [place] Eosinophils/100 WBC (Bld)4.0 %Normal.[facility] Physician GroupComment on above:Performed By: #### CBC, CMP ####[address] [address] USAErythrocyte distribution width (RBC) [Ratio]18.7 % High12.0-14.8[facility] Physician GroupComment on above:Performed By: #### CBC, CMP ####[address] [address] USAHematocrit (Bld) [Volume fraction]26.3 %Low38.8-50.0[facility] Physician GroupComment on above:Performed By: #### CBC, CMP ####[place] [address] USAHemoglobin (Bld) [Mass/Vol]8.6 g/dLLow 13.0-17.0[facility] Physician GroupComment on above:Performed By: #### CBC, CMP ####[place] [address] [place] Lymphocytes (Bld) [#/Vol]1.3 10*3/uLNormal1.00-4.8[facility] Comment on above:Performed By: #### CBC, CMP ####[place] [address] USALymphocytes/100 WBC (Bld)16.9 %Normal. [facility] Physician GroupComment on above:Performed By: #### CBC, CMP ####[address] (RBC) [Entitic mass]29.9 rbGcvttm98.5-35.2[facility] Physician GroupComment on above:Performed By: #### CBC, CMP ####[address] (RBC) [Entitic vol]91.3 wGDbezrh59.5-101 [facility] Physician GroupComment on above:Performed By: #### CBC, CMP ####[place] [address] USAMean Corpuscular HGB Conc32.7 g/sLIszoue73.5-35.6[facility] Physician GroupComment on above:Performed By: #### CBC, CMP ####[place] [address] USAMonocytes (Bld) [#/Vol]0.5 10*3/uLNormal 0.0-0.8[facility] Physician GroupComment on above:Performed By: #### CBC, CMP ####[place] [address] [place] Monocytes/100 WBC (Bld)6.5 %Normal.[facility] Physician GroupComment on above:Performed By: #### CBC, CMP ####[place] [address] USANeutrophils (Bld) [#/Vol]5.7 10*3/uLNormal1.8-7.7[facility] Physician GroupComment on above:Performed By: #### CBC, CMP ####[place] [address] [place] Neutrophils/100 WBC (Bld)72.0 %Normal.[facility] Physician GroupComment on above:Performed By: #### CBC, CMP ####[place] [address] USANRBC%0.0 /100{WBC}Normal0-0.5[facility] Physician GroupComment on above:Performed By: #### CBC, CMP ####[place] [address] USAPlatelet mean volume (Bld) [Entitic vol]8.3 fLNormal6.6-10.1[facility] Physician GroupComment on above: Performed By: #### CBC, CMP ####[place] [address] USAPlatelets (Bld) [#/Vol]151 10*3/zQJldxvo052-984Oqj Person [facility] Hospital Physician GroupComment on above:Performed By: #### CBC, CMP ####[place] [address] USARBC (Bld) [#/Vol]2.88 10*6/uLLow3.90-5.60[facility] Physician GroupComment on above:Performed By: #### CBC, CMP ####[place] [address] USAWBC (Bld) [#/Vol]7.9 10*3/uLNormal4.1-10.5[facility] Physician GroupComment on above:Performed By: #### CBC, CMP ####[address] Comprehensive Metabolic Panelon 46-18-6848Piqzofd [Mass/Vol]2.8 g/dLLow3.5-5.7 [facility] Physician GroupComment on above:Performed By: #### CBC, CMP ####[place] [address] [place] [address] [place] Creatinine Clr Calc Uqlqkfmk16.36NormHCA Florida Clearwater Emergency Physician GroupComment on above:Result Comment: PERFORMED BY:[address] [place], [place] [phone] MEDICAL RANCHO WHITE M.D.Performed By: #### CBC, CMP ####[address] [address] USAGFR/1.73 sq M.predicted MDRD (S/P/Bld) [Vol rate/Area]mL/min/{1.73_m2}NormalThe Person Memorial Hospital Physician GroupComment on above: Performed By: #### CBC, CMP ####[place] [address] [place] [address] USACreatinine [Mass/volume] in Serum or PlasmaOrdered By: Mario Jordan on 33-44-5486Cdgkdaihjd [Mass/Vol]Creatinine [Mass/volume] in Serum or Plasma0.70-1.30[facility] HospitalCreatinine [Mass/Vol] 1.15 mg/dLNormsc0.70-1.30[facility] HospitalComment on above: Performed By: #### CBC, CMP ####[address] [address] USAGlobulin Calc (S) [Mass/Vol]Ordered By: Mario Jordan on 30-36-8947Hdsolsxu (S) [Mass/Vol]Serum globulin measurement by calculation (mass/volume)[facility] HospitalGlucose [Mass/volume] in Serum or PlasmaOrdered By: Mario Jordan on 91-67-8348Ayjecgb [Mass/Vol]Glucose [Mass/volume] in Serum or Wntoiw29-469YxeqoswzfSalem City HospitalGlucose [Mass/Vol]86 mg/sXSrdvem59-453TvqdgjxomSalem City HospitalComment on above: ADA recommended reference rangeRandom Glucose Reference Range is dependent on time and content of last meal. Glucose of more than 200 mg/dL in a nonstressed, ambulatory subject supports the diagnosisof Diabetes Mellitus.Result Comment: Random Glucose Reference Range is dependent on time and content of last meal. Glucose of more than 200 mg/dL in a nonstressed, ambulatory subject supports the diagnosis of Diabetes Mellitus. ADA recommended reference rangePerformed By: #### CBC, CMP ####[facility] [place] [address] USANo Panel InformationOrdered By: Mario Jordan on 85-54-3380Gwipmnpqy GFR (CKD-EPI)> 60.0 mL/MinSalem City HospitalPharmacy Creatinine Clearance (Chem51.36[facility]> 60.0 mL/MinSalem City Hospital51.36[facility] HospitalPotassium [Moles/volume] in Serum or PlasmaOrdered By: Mario Jordan on 88-51-5915Smkovylcy [Moles/Vol]Potassium [Moles/volume] in Serum or Plasma3.5-5.1FJoint Township District Memorial HospitalPotassium [Moles/Vol]3.6 mmol/LNormal3.5-5.1FJoint Township District Memorial HospitalComment on above:Performed By: #### CBC, CMP ####[address] [address] USAProtein [Mass/volume] in Serum or PlasmaOrdered By: Mario Jordan on 08-09-9674Nflfbjk [Mass/Vol] Protein [Mass/volume] in Serum or PlasmaLow6.4-8.9[facility] HospitalProtein [Mass/Vol]5.5 g/dLLow6.4-8.9[facility] Comment on above:Performed By: #### CBC, CMP ####[address] [place] [address] USASerum globulin measurement by calculation (mass/volume)Ordered By: Mario Jordan on 01-90-3613Szuklyck (S) [Mass/Vol]2.7 g/dLNoKettering Health Main CampusComment on above: Performed By: #### CBC, CMP ####[place] [address] [place] [address] USASerum or plasma albumin/globulin mass ratioOrdered By: Mario Jordan on 74-44-7328Zoctipi/Globulin [Mass ratio]Serum or plasma albumin/globulin mass ratioSalem City HospitalAlbumin/Globulin [Mass ratio]1.0 {ratio}NormalSalem City HospitalComment on above: Performed By: #### CBC, CMP ####[address] [address] USASerum or plasma anion gap determinationOrdered By: Mario Jordan on 47-16-5221Usems gap [Moles/Vol]Serum or plasma anion gap determination6.0-15.0[facility] HospitalAnion gap [Moles/Vol]10.1 mmol/LNormal6.0-15.0[facility] HospitalComment on above:Performed By: #### CBC, CMP ####[place] [address] USASodium [Moles/volume] in Serum or PlasmaOrdered By: Mario Jordan on 94-81-1864Uexwsv [Moles/Vol]Sodium [Moles/volume] in Serum or Fbzwft612-335 [facility] West Campusodium [Moles/Vol]137 mmol/HTobcrc970-133 [facility] HospitalComment on above:Performed By: #### CBC, CMP ####[address] [address] USAUrea nitrogen [Mass/volume] in Serum or PlasmaOrdered By: Mario Jordan on 07-16-2024 Urea nitrogen [Mass/Vol]Urea nitrogen [Mass/volume] in Serum or PlasmaHigh7-25 [facility] HospitalUrea nitrogen [Mass/Vol]26 mg/dLHigh7-25 [facility] HospitalComment on above:Performed By: #### CBC, CMP ####[address] [address] USAX-ray reportOrdered By: Shaquille Mahoney on 76-11-8839Tkyra reportSalem City Hospital Work Phone: xr chest 1V portableon 26-69-0602ES chest 1V portable NormalThe Person Memorial Hospital Physician GroupAerobic Cultureon 06-37-2953Ahtlbnp Culture NormalThe Person Memorial Hospital Physician GroupComment on above:Performed By: #### AERC ####[address] [address] USAAerobic cultureOrdered By: Bryce Villeda on 81-07-4995Piacznrs identified Aer cx Nom (Unsp spec)Aerobic cultureSalem City HospitalBacteria identified Aer cx Nom (Unsp spec)No Growth 2 DaysSalem City HospitalAnaerobic cultureOrdered By: Bryce Villeda on 65-70-3971Nuustwsy identified Anaer cx Nom (Unsp spec)No Anaerobes Isolated 3 DaysSalem City HospitalComplete Blood Count Auto Diffon 18-46-3518Rvpaegxix (Bld) [#/Vol]0.1 10*3/uLNormal0.0-0.2[facility] Physician GroupComment on above:Result Comment: PERFORMED BY:[address] [place], [place] [phone] MEDICAL DIRECTORJAJA WHITE M.D.Performed By: #### CMP, CBC ####[address] [address] USABasophils/100 WBC (Bld)0.5 %Normal.[facility] Hospital Physician GroupComment on above:Performed By: #### CMP, CBC ####[address] [address] [place] Eosinophils (Bld) [#/Vol]0.4 10*3/uLNormal0.0-0.45[facility] Comment on above:Performed By: #### CMP, CBC ####[address] [address] USAEosinophils/100 WBC (Bld)3.1 %Normal. [facility] Physician GroupComment on above:Performed By: #### CMP, CBC ####[address] [address] [place] Erythrocyte distribution width (RBC) [Ratio]18.7 %High12.0-14.8[facility] Physician GroupComment on above:Performed By: #### CMP, CBC ####[place] [address] USAHematocrit (Bld) [Volume fraction]24.7 %Low38.8-50.0[facility] Physician GroupComment on above:Performed By: #### CMP, CBC ####[place] [address] USAHemoglobin (Bld) [Mass/Vol]8.0 g/dLLow13.0-17.0[facility] Physician GroupComment on above:Performed By: #### CMP, CBC ####[place] [address] [place] Lymphocytes (Bld) [#/Vol]1.2 10*3/uLNormal1.00-4.8[facility] Comment on above:Performed By: #### CMP, CBC ####[place] [address] USALymphocytes/100 WBC (Bld)10.9 %Normal. [facility] Physician GroupComment on above:Performed By: #### CMP, CBC ####[place] [address] USAMCH (RBC) [Entitic mass]29.4 dqJzaoyo83.5-35.2[facility] Physician GroupComment on above:Performed By: #### CMP, CBC ####[place] [address] USAMCV (RBC) [Entitic vol]90.4 uUSlacec07.5-101 [facility] Physician GroupComment on above:Performed By: #### CMP, CBC ####[place] [address] USAMean Corpuscular HGB Conc32.5 g/fFOapmuf05.5-35.6[facility] Physician GroupComment on above:Performed By: #### CMP, CBC ####[place] [address] USAMonocytes (Bld) [#/Vol]0.7 10*3/uLNormal 0.0-0.8[facility] Physician GroupComment on above:Performed By: #### CMP, CBC ####[place] [address] [place] Monocytes/100 WBC (Bld)6.0 %Normal.[facility] Physician GroupComment on above:Performed By: #### CMP, CBC ####[place] [address] USANeutrophils (Bld) [#/Vol]8.9 10*3/uLHigh1.8-7.7[facility] Physician GroupComment on above:Performed By: #### CMP, CBC ####[place] [address] [place] Neutrophils/100 WBC (Bld)79.5 %Normal.[facility] Physician GroupComment on above:Performed By: #### CMP, CBC ####Center [place] [address] USANRBC%0.0 /100{WBC}Normal0-0.5The [facility] Physician GroupComment on above:Performed By: #### CMP, CBC ####[place] [address] USAPlatelet mean volume (Bld) [Entitic vol]8.0 fLNormal6.6-10.1The [facility] Physician GroupComment on above: Performed By: #### CMP, CBC ####[place] [address] USAPlatelets (Bld) [#/Vol]153 10*3/jOQuqhzo927-223Fot [facility] Physician GroupComment on above:Performed By: #### CMP, CBC ####[place] [address] USARBC (Bld) [#/Vol]2.73 10*6/uLLow3.90-5.60The [facility] Physician GroupComment on above:Performed By: #### CMP, CBC ####[address] [address] USAWBC (Bld) [#/Vol]11.2 10*3/uLHigh4.1-10.5The [facility] Physician GroupComment on above:Performed By: #### CMP, CBC ####[address] [address] [facility] Comprehensive Metabolic Panelon 24-93-9644Saerxqe [Mass/Vol]2.7 g/dLLow3.5-5.7 [facility] Physician GroupComment on above:Performed By: #### CMP, CBC ####[address] [address] [facility] Albumin/Globulin [Mass ratio]1.0 {ratio}NormalThe [facility]ician Group Comment on above:Performed By: #### CMP, CBC ####[address] [address] USAALP [Catalytic activity/Vol]91 U/L Yfqgas78-792Zwr [facility] Physician GroupComment on above:Performed By: #### CMP, CBC ####[address] [address] USAALT [Catalytic activity/Vol]8 U/LNormal7-52[facility] Comment on above:Performed By: #### CMP, CBC ####[address] [address] USAAnion gap [Moles/Vol]9.7 mmol/LNormal 6.0-15.0The [facility] Physician GroupComment on above:Performed By: #### CMP, CBC ####[address] [address] USAAST [Catalytic activity/Vol]17 U/VDqtkyz97-02Wrz [facility] Physician GroupComment on above:Performed By: #### CMP, CBC ####[address] [address] USABilirubin [Mass/Vol]0.4 mg/dLNormal0.3-1.0The [facility] Physician GroupComment on above:Performed By: #### CMP, CBC ####[address] [place] [address] USACalcium [Mass/Vol]8.2 mg/dLLow8.6-10.3The [facility] Physician GroupComment on above: Performed By: #### CMP, CBC ####[place] [address] USAChloride [Moles/Vol]103 mmol/CYviuow65-217Aif [facility] Physician [facility] HospitalComment on above:Performed By: #### CMP, CBC ####[place] [address] USACO2 [Moles/Vol]25.8 mmol/GUrmdzx16.0-31.0The [facility] Physician GroupComment on above:Performed By: #### CMP, CBC ####[place] [address] USACreatinine [Mass/Vol]1.44 mg/dLHigh0.70-1.30The [facility] Physician GroupComment on above:Performed By: #### CMP, CBC ####[place] [address] [place] Creatinine Clr Calc Cmmunool62.88NoCritical access hospital Physician GroupComment on above:Result Comment: PERFORMED BY:[address] [place], [place] [phone] MEDICAL DIRECTORJAJA WHITE M.D.Performed By: #### CMP, CBC ####[address] [address] USAEstimated GFR48.213 mL/MinNoCritical access hospital Physician [facility] HospitalComment on above:Performed By: #### CMP, CBC ####[address] [address] USAGlobulin (S) [Mass/Vol]2.7 g/dLDelray Medical Center Physician [facility] HospitalComment on above:Performed By: #### CMP, CBC ####[address] [address] USAGlucose [Mass/Vol]108 mg/lCEcvm37-846Gfm [facility] Comment on above:Result Comment: Random Glucose Reference Range is dependent on time and content of last meal. Glucose of more than 200 mg/dL in a nonstressed, ambulatory subject supports the diagnosis of Diabetes Mellitus. ADA recommended reference rangePerformed By: #### CMP, CBC ####[place] [place] [address] USAPotassium [Moles/Vol]3.5 mmol/LNormal 3.5-5.1The [facility] Physician GroupComment on above:Performed By: #### CMP, CBC ####[address] [place] [address] [place] Protein [Mass/Vol]5.4 g/dLLow6.4-8.9[facility] Physician [facility] HospitalComment on above:Performed By: #### CMP, CBC ####[address] [place] [address] USASodium [Moles/Vol]135 mmol/IKfj854-410Vat [facility] Physician [facility] HospitalComment on above:Performed By: #### CMP, CBC ####[place] [place] [id number] USAUrea nitrogen [Mass/Vol]32 mg/dLHigh7-25The [facility] Physician [facility] HospitalComment on above: Performed By: #### CMP, CBC ####[place] [address] USAGram stain microscopyOrdered By: Bryce Villeda on 68-51-3826Ulfaoradcsv observation Gram stain Nom (Unsp spec)Gram stain microscopySalem City HospitalMicroscopic observation Gram stain Nom (Unsp spec)[facility] City HospitalVancomycin [Mass/volume] in Serum or Plasma --troughOrdered By: Mario Jordan on 45-66-3486Rqffogiyuo trough [Mass/Vol]Serum or plasma trough vancomycin qclgrVbtk73.0-20.0[facility] City HospitalVancomycin trough [Mass/Vol]38.7 ug/zEEaqv83.0-20.0[facility] HospitalComment on above:Last dose: -Vancomycin,Troughon 99-71-3409Pmjycaeyqg,Nquzna60.7 ug/gLKujr51.0-20.0[facility] Comment on above:Result Comment: Last dose: -PERFORMED BY:[address] [place], [place] [phone] MEDICAL DIRECTORJAJA CATES M.D.Performed By: #### VANCT ####[address] [address] USACT lower leg RT wo conon 73-68-7240BK lower leg RT wo conNormalThe [facility] Physician [facility] Complete Blood Count Auto Diffon 83-25-1483Wgblbowzo (Bld) [#/Vol]0.0 10*3/uL Normal0.0-0.2The [facility] Physician GroupComment on above:Result Comment: PERFORMED BY:[address] [place]EL[place]WO[place], [place] [phone] MEDICAL DIRECTORJAJA CATES M.D. Performed By: #### CBC, CMP ####[place] [address] USABasophils/100 WBC (Bld)0.2 %Normal.The [facility] Physician GroupComment on above:Performed By: #### CBC, CMP ####[place] [address] USAEosinophils (Bld) [#/Vol]0.2 10*3/uLNormal0.0-0.45The [facility] Physician GroupComment on above: Performed By: #### CBC, CMP ####[place] [address] USAEosinophils/100 WBC (Bld)1.4 %Normal.The [facility] Physician GroupComment on above:Performed By: #### CBC, CMP ####[place] [address] USAErythrocyte distribution width (RBC) [Ratio]18.4 %High12.0-14.8[facility] Physician [facility] Comment on above:Performed By: #### CBC, CMP ####[address] [address] USAHematocrit (Bld) [Volume fraction]24.0 %Low38.8-50.0The [facility] Physician GroupComment on above:Performed By: #### CBC, CMP ####[place] [address] USAHemoglobin (Bld) [Mass/Vol]7.8 g/dLLow13.0-17.0[facility] Comment on above:Performed By: #### CBC, CMP ####[place] [address] USALymphocytes (Bld) [#/Vol]1.2 10*3/uL Normal1.00-4.8The [facility] Physician GroupComment on above:Performed By: #### CBC, CMP ####[place] [address] USALymphocytes/100 WBC (Bld)7.4 %Normal.The [facility] Physician GroupComment on above:Performed By: #### CBC, CMP ####[place] [address] USAMCH (RBC) [Entitic mass]29.8 ziOqpaab99.5-35.2The [facility] Physician GroupComment on above:Performed By: #### CBC, CMP ####[place] [address] USAMCV (RBC) [Entitic vol]91.5 nEMntqxq51.5-101The [facility] Physician GroupComment on above:Performed By: #### CBC, CMP ####[place] [address] USAMean Corpuscular HGB Conc32.5 g/rBYiqrmm92.5-35.6The [facility] Physician GroupComment on above:Performed By: #### CBC, CMP ####[place] [address] [place] Monocytes (Bld) [#/Vol]1.0 10*3/uLHigh0.0-0.8[facility] Comment on above:Performed By: #### CBC, CMP ####[address] [address] USAMonocytes/100 WBC (Bld)6.1 %Normal.The [facility] Physician GroupComment on above:Performed By: #### CBC, CMP ####[address] [address] [place] Neutrophils (Bld) [#/Vol]13.3 10*3/uLHigh1.8-7.7[facility] Comment on above:Performed By: #### CBC, CMP ####[address] [address] USANeutrophils/100 WBC (Bld)84.9 %Normal. The [facility] Physician GroupComment on above:Performed By: #### CBC, CMP ####[address] [address] USANRBC% 0.1 /100{WBC}Normal0-0.5The [facility] Physician GroupComment on above:Performed By: #### CBC, CMP ####[address] [address] USAPlatelet mean volume (Bld) [Entitic vol]7.9 fLNormal6.6-10.1The [facility] Physician GroupComment on above:Performed By: #### CBC, CMP ####[address] [address] [place] Platelets (Bld) [#/Vol]147 10*3/tBCeb465-503Sle [facility] Physician GroupComment on above:Performed By: #### CBC, CMP ####[address] [address] USARBC (Bld) [#/Vol]2.63 10*6/uLLow3.90-5.60The [facility] Physician GroupComment on above:Performed By: #### CBC, CMP ####[address] [address] USAWBC (Bld) [#/Vol]15.7 10*3/uLHigh4.1-10.5The [facility] Physician GroupComment on above:Performed By: #### CBC, CMP ####[address] [address] USAComprehensive Metabolic Panelon 79-79-0626Kbcrdlg [Mass/Vol]2.7 g/dLLow3.5-5.7The [facility] Physician GroupComment on above: Performed By: #### CBC, CMP ####[place] [address] USAAlbumin/Globulin [Mass ratio]1.1 {ratio}NormalThe [facility] Physician GroupComment on above:Performed By: #### CBC, CMP ####[place] [address] USAALP [Catalytic activity/Vol]79 U/TPvmsqv05-914Paa [facility] Physician GroupComment on above:Performed By: #### CBC, CMP ####[place] [address] USAALT [Catalytic activity/Vol]4 U/LLow7-52The [facility] Physician GroupComment on above:Performed By: #### CBC, CMP ####[place] [address] USAAnion gap [Moles/Vol]12.2 mmol/LNormal6.0-15.0The [facility] Physician GroupComment on above:Performed By: #### CBC, CMP ####[place] [address] USAAST [Catalytic activity/Vol]11 U/NAtt11-66Zhm [facility] Physician GroupComment on above:Performed By: #### CBC, CMP ####[place] [address] [place] Bilirubin [Mass/Vol]0.4 mg/dLNormal0.3-1.0The [facility] Physician GroupComment on above:Performed By: #### CBC, CMP ####[place] [address] USACalcium [Mass/Vol]8.2 mg/dLLow8.6-10.3The [facility] Physician GroupComment on above:Performed By: #### CBC, CMP ####[place] [address] [place] Chloride [Moles/Vol]101 mmol/JSpkqqa21-141Hek [facility] Physician GroupComment on above:Performed By: #### CBC, CMP ####[place] [address] USACO2 [Moles/Vol]22.1 mmol/UNozpdl73.0-31.0The [facility] Physician GroupComment on above:Performed By: #### CBC, CMP ####[place] [address] [facility] Creatinine [Mass/Vol]1.63 mg/dLHigh0.70-1.30The [facility] Physician GroupComment on above:Performed By: #### CBC, CMP ####[place] [address] USACreatinine Clr Calc Oyumhjgb33.75NormHCA Florida Clearwater Emergency Physician GroupComment on above:Result Comment: PERFORMED BY:[address] [place], [place] [phone] MEDICAL DIRECTORJAJA CATES M.D.Performed By: #### CBC, CMP ####[address] Estimated GFR41.809 mL/MinNoCritical access hospital Physician [facility] HospitalComment on above: Performed By: #### CBC, CMP ####[place] [address] USAGlobulin (S) [Mass/Vol]2.5 g/dLDelray Medical Center Physician [facility] HospitalComment on above:Performed By: #### CBC, CMP ####[place] [address] USAGlucose [Mass/Vol]81 mg/aPRytvjg73-049Bui [facility] Physician GroupComment on above:Result Comment: Random Glucose Reference Range is dependent on time and content of last meal. Glucose of more than 200 mg/dL in a nonstressed, ambulatory subject supports the diagnosis of Diabetes Mellitus. ADA recommended reference rangePerformed By: #### CBC, CMP ####[facility] [place] [address] USAPotassium [Moles/Vol]3.3 mmol/LLow3.5-5.1[facility] Comment on above:Performed By: #### CBC, CMP ####[address] [place] [place] [address] USAProtein [Mass/Vol]5.2 g/dLLow6.4-8.9 The [facility] Physician GroupComment on above:Performed By: #### CBC, CMP ####[address] [place] [place] [address] USASodium [Moles/Vol]132 mmol/MYrq844-756Elo [facility] Physician GroupComment on above: Performed By: #### CBC, CMP ####[address] [address] USAUrea nitrogen [Mass/Vol]34 mg/dLHigh7-25The [facility] Physician GroupComment on above:Performed By: #### CBC, CMP ####[place] [address] [facility] Vancomycin [Mass/volume] in Serum or Plasma --peakOrdered By: Mario Jordan on 06-02-3559Outeyhzjfs peak [Mass/Vol]Vancomycin [Mass/volume] in Serum or Plasma --peak20.0-40.0[facility] City HospitalVancomycin peak [Mass/Vol]27.3 ug/mL20.0-40.0[facility] City HospitalComment on above:Last dose: - Vancomycin,Peakon 71-18-8816Murqbncqvv,Peak27.3 ug/hMVzznwz54.0-40.0The [facility] Physician GroupComment on above:Order Comment: Comment ?DRAW 1 HOUR AFTER INFUSION COMPLETES Date of last dose?: 20240712 Time of last dose?: 1800 Result Comment: Last dose: -PERFORMED BY:[address] [place], [place] [phone] MEDICAL DIRECTORJAJA CATES M.D.Performed By: #### VANCP ####[place] [address] [place] [address] USAAcanthocytes [Presence] in Blood by Light microscopyOrdered By: Mario Jordan on 92-81-0547Gyyljhnteqfm LM Ql (Bld) Acanthocytes [Presence] in Blood by Light microscopySalem City HospitalAcanthocytes LM Ql (Bld)SlightSalem City Hospital Anisocytosis LM Ql (Bld)Ordered By: Mario Jordan on 04-29-9805Tuqeqjtrcptd Ql (Bld)Anisocytosis [Presence] in Blood by Light microscopySalem City HospitalAnisocytosis [Presence] in Blood by Light microscopyOrdered By: Mario Jordan on 96-77-4683Ixrfhbtdppxc Ql (Bld)SlightNormalSalem City HospitalComment on above:Performed By: #### PHOS, CMP, SCAN CBC, MG ####[place] [address] [place] [phone] USACT abdomen pelvis wo conon 93-64-7921UY abdomen pelvis wo conNormalThe [facility] Physician [facility] HospitalComprehensive Metabolic Panelon 93-08-2351Mdcipbq [Mass/Vol]2.6 g/dLLow3.5-5.7The [facility] Physician GroupComment on above:Performed By: #### PHOS, CMP, SCAN CBC, MG ####[address] [place] [address] USAAlbumin/Globulin [Mass ratio]1.1 {ratio}NormalThe [facility] Physician GroupComment on above:Performed By: #### PHOS, CMP, SCAN CBC, MG ####[address] [place] [address] USAALP [Catalytic activity/Vol]69 U/MXddksy88-004Xla [facility] Comment on above:Performed By: #### PHOS, CMP, SCAN CBC, MG ####[address] [place] [address] USAALT [Catalytic activity/Vol]5 U/LLow7-52The [facility] Physician GroupComment on above:Performed By: #### PHOS, CMP, SCAN CBC, MG ####[place] [address] USAAnion gap [Moles/Vol]11.7 mmol/LNormal6.0-15.0The [facility] Physician GroupComment on above:Performed By: #### PHOS, CMP, SCAN CBC, MG ####[place] [address] USAAST [Catalytic activity/Vol]11 U/EPni84-38Nja [facility] Comment on above:Performed By: #### PHOS, CMP, SCAN CBC, MG ####[place] [address] USABilirubin [Mass/Vol] 0.5 mg/dLNormal0.3-1.0The [facility] Physician GroupComment on above:Performed By: #### PHOS, CMP, SCAN CBC, MG ####[place] [address] USACalcium [Mass/Vol]8.1 mg/dLLow8.6-10.3The [facility] Physician GroupComment on above:Performed By: #### PHOS, CMP, SCAN CBC, MG ####[place] [address] [place] Chloride [Moles/Vol]101 mmol/PKhltuh92-584Kjj [facility] Physician GroupComment on above:Performed By: #### PHOS, CMP, SCAN CBC, MG ####[place] [address] USACO2 [Moles/Vol]24.2 mmol/L Jefhjs03.0-31.0The [facility] Physician GroupComment on above:Performed By: #### PHOS, CMP, SCAN CBC, MG ####[place] [address] USACreatinine [Mass/Vol]1.75 mg/dLHigh0.70-1.30The [facility] Physician GroupComment on above:Performed By: #### PHOS, CMP, SCAN CBC, MG ####[place] [address] USACreatinine Clr Calc Eaeyvfcq73.84NoCritical access hospital Physician [facility] HospitalComment on above:Performed By: #### PHOS, CMP, SCAN CBC, MG ####[address] [place] [address] USAEstimated GFR38.393 mL/Min NormalThe [facility] Physician [facility] HospitalComment on above:Performed By: #### PHOS, CMP, SCAN CBC, MG ####[place] [address] USAGlobulin (S) [Mass/Vol]2.3 g/dLNoCritical access hospital Physician [facility] Comment on above:Performed By: #### PHOS, CMP, SCAN CBC, MG ####[place] [address] USAGlucose [Mass/Vol]66 mg/dURbz74-573Lfu [facility] Physician GroupComment on above:Result Comment: Random Glucose Reference Range is dependent on time and content of last meal. Glucose of more than 200 mg/dL in a nonstressed, ambulatory subject supports the diagnosis of Diabetes Mellitus. ADA recommended reference rangePerformed By: #### PHOS, CMP, SCAN CBC, MG ####[place] [address] USAPotassium [Moles/Vol]3.9 mmol/LNormal3.5-5.1[facility] Physician [facility] HospitalComment on above:Performed By: #### PHOS, CMP, SCAN CBC, MG ####[place] [address] USAProtein [Mass/Vol]4.9 g/dLSignificant change down6.4-8.9The [facility] Physician [facility] HospitalComment on above:Performed By: #### PHOS, CMP, SCAN CBC, MG ####[place] [address] USASodium [Moles/Vol]133 mmol/DKza338-998Aip [facility] Physician [facility] HospitalComment on above: Performed By: #### PHOS, CMP, SCAN CBC, MG ####[address] [place] [address] USAUrea nitrogen [Mass/Vol]34 mg/dLCity Hospital 7 [facility] Physician GroupComment on above:Performed By: #### PHOS, CMP, SCAN CBC, MG ####[address] [place] [address] USADacrocytes [Presence] in Blood by Light microscopyOrdered By: Mario Jordan on 35-55-8252Agvzblmuhb LM Ql (Bld)Teardrop cell detectionSalem City HospitalDacrocytes LM Ql (Bld)SlightSalem City HospitalErythrocyte morphology finding [Identifier] in BloodOrdered By: Mario Jordan on 41-52-3193QVL morphology finding Nom (Bld)RBC morphologySalem City HospitalRBC morphology finding Nom (Bld)N/[facility] Memorial HospitalHypochromia LM Ql (Bld)Ordered By: Mario Jordan on 07-13-2024 Hypochromia Ql (Bld)Hypochromia [Presence] in Blood by Light microscopySalem City HospitalHypochromia Ql (Bld)[facility]vue HospitalMRSA - MSSA Nasal PCRon 38-26-1271HPZS - MSSA Nasal PCRNoCritical access hospital Physician GroupComment on above:Performed By: #### MRSA - MSSA PCR ####[address] [address] [facility] Magnesium [Mass/volume] in Serum or PlasmaOrdered By: Mario Jordan on 07-13-2024 Magnesium [Mass/Vol]Magnesium [Mass/volume] in Serum or PlasmaLow1.9-2.7 [facility] HospitalMagnesium [Mass/Vol]1.8 mg/dLLow1.9-2.7 [facility] HospitalComment on above:Result Comment: PERFORMED BY:[address] [place], [place] [phone] MEDICAL DIRECTORJAJA CATES M.D.Performed By: #### PHOS, CMP, SCAN CBC, MG ####[address] [address] USAMicrocytes LM Ql (Bld)Ordered By: Mario Jordan on 87-75-2651Kwvwanxmmm Ql (Bld)Microcytes [Presence] in Blood by Light microscopy [facility] City HospitalMicrocytes Ql (Bld)[facility] HospitalNo Panel InformationOrdered By: Mario Jordan on 62-27-0352Ufria Screen MRSA/MSSProMedica Memorial HospitalOvalocytes [Presence] in Blood by Light microscopyOrdered By: Mario Jordan on 99-68-2993Bhlnjakihb LM Ql (Bld) Ovalocyte detectionSalem City HospitalOvalocytes LM Ql (Bld)[facility] OhioPhosphate [Mass/volume] in Serum or Plasma Ordered By: Mario Jordan on 81-70-3643Exowbjqbe [Mass/Vol]Phosphate [Mass/volume] in Serum or Plasma2.5-4.5FJoint Township District Memorial HospitalPhosphate [Mass/Vol] 3.0 mg/dLNormal2.5-4.5FJoint Township District Memorial HospitalComment on above: Performed By: #### PHOS, CMP, SCAN CBC, MG ####[facility] [address] [place] [id number] USAPlatelet adequacy [Presence] in Blood by Light microscopyOrdered By: Mario Jordan on 12-43-9853Ujsgejshx LM Ql (Bld) Platelet adequacy [Presence] in Blood by Light microscopyNoKettering Health Main CampusPlatelets LM Ql (Bld)NormalNoKettering Health Main CampusPlatelet morphology finding [Identifier] in BloodOrdered By: Mario Jordan on 63-95-8888Ulckwoqp morphology finding Nom (Bld)Platelet morphology finding [Identifier] in BloodSalem City HospitalPlatelet morphology finding Nom (Bld)N/AFJoint Township District Memorial HospitalPlatelets Large [Presence] in Blood by Light microscopyOrdered By: Mario Jordan on 07-13-2024 Platelets Large LM Ql (Bld)Platelets Large [Presence] in Blood by Light microscopySalem City HospitalPlatelets Large LM Ql (Bld)Slight [facility] City HospitalPoikilocytosis [Presence] in Blood by Light microscopyOrdered By: Mario Jordan on 41-49-4141Udutyzuyqfmtvo LM Ql (Bld) Poikilocytosis [Presence] in Blood by Light microscopySalem City HospitalPoikilocytosis LM Ql (Bld)ModerateSalem City Hospital Polychromasia [Presence] in Blood by Light microscopyOrdered By: Mario Jordan on 90-45-5874Chctxldfzjyck LM Ql (Bld)Polychromasia [Presence] in Blood by Light microscopySalem City HospitalPolychromasia LM Ql (Bld)Slight [facility] Campuscan and CBCon 29-88-6701YxcjkkdzjdtaLaiehn NormalThe [facility] Physician GroupComment on above:Performed By: #### PHOS, CMP, SCAN CBC, MG ####[place] [address] USABasophils (Bld) [#/Vol]0.1 10*3/uLNormal0.0-0.2The [facility] Physician GroupComment on above:Performed By: #### PHOS, CMP, SCAN CBC, MG ####[place] [address] [place] Basophils/100 WBC (Bld)0.2 %Normal.The [facility] Physician GroupComment on above:Performed By: #### PHOS, CMP, SCAN CBC, MG ####[address] [address] USAEosinophils (Bld) [#/Vol]0.0 10*3/uL Normal0.0-0.45The [facility] Physician GroupComment on above:Performed By: #### PHOS, CMP, SCAN CBC, MG ####[place] [address] USAEosinophils/100 WBC (Bld)0.1 %Normal.The [facility] Physician GroupComment on above:Performed By: #### PHOS, CMP, SCAN CBC, MG ####[place] [address] [place] Erythrocyte distribution width (RBC) [Ratio]18.4 %High12.0-14.8The [facility] Physician GroupComment on above:Performed By: #### PHOS, CMP, SCAN CBC, MG ####[address] [address] [place] Hematocrit (Bld) [Volume fraction]25.1 %Low38.8-50.0The [facility] Physician GroupComment on above:Performed By: #### PHOS, CMP, SCAN CBC, MG ####[address] [address] USAHemoglobin (Bld) [Mass/Vol]8.0 g/dLLow13.0-17.0The [facility] Physician GroupComment on above: Performed By: #### PHOS, CMP, SCAN CBC, MG ####[address] [address] USAHypochromasiaSSloop Memorial Hospital Physician GroupComment on above:Performed By: #### PHOS, CMP, SCAN CBC, MG ####[address] [address] USALarge PlateletsSSloop Memorial Hospital Physician GroupComment on above:Result Comment: PERFORMED BY:[address]E[place], [place] [phone] MEDICAL DIRECTORJAJA CATES M.D. Performed By: #### PHOS, CMP, SCAN CBC, MG ####[address] [address] USALymphocytes (Bld) [#/Vol]0.7 10*3/uL Low1.00-4.8The [facility] Physician GroupComment on above:Performed By: #### PHOS, CMP, SCAN CBC, MG ####[address] [address] USALymphocytes/100 WBC (Bld)2.7 %Normal.The [facility] Physician GroupComment on above:Performed By: #### PHOS, CMP, SCAN CBC, MG ####[address] [address] USAMCH (RBC) [Entitic mass]29.1 qmCjqmcm10.5-35.2The [facility] Physician GroupComment on above:Performed By: #### PHOS, CMP, SCAN CBC, MG ####[place] [address] USAMCV (RBC) [Entitic vol]90.9 fL Tmfirw98.5-101The [facility] Physician GroupComment on above:Performed By: #### PHOS, CMP, SCAN CBC, MG ####[place] [address] USAMean Corpuscular HGB Conc32.0 g/dLLow32.5-35.6The [facility] Physician GroupComment on above:Performed By: #### PHOS, CMP, SCAN CBC, MG ####[place] [address] USAMicrocytosisSlightNormalThe [facility] Physician GroupComment on above: Performed By: #### PHOS, CMP, SCAN CBC, MG ####[place] [address] USAMonocytes (Bld) [#/Vol]1.8 10*3/uLHigh 0.0-0.8The [facility] Physician GroupComment on above:Performed By: #### PHOS, CMP, SCAN CBC, MG ####[place] [address] USAMonocytes/100 WBC (Bld)6.8 %Normal.[facility] Comment on above:Performed By: #### PHOS, CMP, SCAN CBC, MG ####[place] [address] USANeutrophils (Bld) [#/Vol]24.1 10*3/uLHigh1.8-7.7The [facility] Physician GroupComment on above: Performed By: #### PHOS, CMP, SCAN CBC, MG ####[place] [address] USANeutrophils/100 WBC (Bld)90.2 %Normal. [facility] Physician GroupComment on above:Performed By: #### PHOS, CMP, SCAN CBC, MG ####[address] [place] [address] USANRBC%0.1 /100{WBC}Normal0-0.5The [facility] Physician GroupComment on above: Performed By: #### PHOS, CMP, SCAN CBC, MG ####[address] [address] USAOvalocytesSlightDelray Medical Center Physician GroupComment on above:Performed By: #### PHOS, CMP, SCAN CBC, MG ####[address] [address] [place] Platelet EstimateNormalNormalDelray Medical Center Physician GroupComment on above:Performed By: #### PHOS, CMP, SCAN CBC, MG ####[address] [address] USAPlatelet mean volume (Bld) [Entitic vol]7.7 fLNormal6.6-10.1The [facility] Physician GroupComment on above:Performed By: #### PHOS, CMP, SCAN CBC, MG ####[address] [address] USAPlatelets (Bld) [#/Vol]179 10*3/aESvcddb805-652Zye [facility] Physician GroupComment on above:Performed By: #### PHOS, CMP, SCAN CBC, MG ####[address] [address] USAPoikilocytosisModerateNormHCA Florida Clearwater Emergency Physician GroupComment on above: Performed By: #### PHOS, CMP, SCAN CBC, MG ####[address] [address] USAPolychromasiaSlightDelray Medical Center Physician GroupComment on above:Performed By: #### PHOS, CMP, SCAN CBC, MG ####[address] [address] USARBC (Bld) [#/Vol]2.77 10*6/uLLow3.90-5.60The [facility] Physician GroupComment on above:Performed By: #### PHOS, CMP, SCAN CBC, MG ####[address] [place] [address] USASchistocytesAlleghany Health Physician GroupComment on above:Performed By: #### PHOS, CMP, SCAN CBC, MG ####[address] [address] USATear Drop CellsSlightDelray Medical Center Physician GroupComment on above:Performed By: #### PHOS, CMP, SCAN CBC, MG ####[address] [address] USAWBC (Bld) [#/Vol]26.7 10*3/uLHigh4.1-10.5The [facility] Physician GroupComment on above:Performed By: #### PHOS, CMP, SCAN CBC, MG ####[address] [address] USASchistocytes [Presence] in Blood by Light microscopyOrdered By: Mario Jordan on 74-91-9634Fbszocurxhfp LM Ql (Bld)Schistocytes [Presence] in Blood by Light microscopyTrinity Health System West Campuschistocytes LM Ql (Bld)Slight Trinity Health System West Campustool Occult Blood (Guaiac)on 44-05-4162Ntexg Occult Blood (Guaiac)NormalThe [facility] Physician GroupComment on above: Performed By: #### OB(GUAIAC) ####[address] [address]CYWIbbrh gastrointestinal hemoglobin detectionOrdered By: Melvi Qureshi on 82-27-4119Fsawjdsekk.gastrointestinal Ql (Stl)Stool gastrointestinal hemoglobin detectionSalem City Hospital Hemoglobin.gastrointestinal Ql (Stl)Salem City HospitalAlanine aminotransferase [Enzymatic activity/volume] in Serum or PlasmaOrdered By: Melvi Qureshi on 80-62-2412HQL [Catalytic activity/Vol]Alanine aminotransferase [Enzymatic activity/volume] in Serum or PlasmaLow7-52Salem City HospitalAlbumin [Mass/volume] in Serum or Plasma by Bromocresol green (BCG) dye binding methoOrdered By: Melvi Qureshi on 05-43-7051Wkyeabh BCG dye [Mass/Vol] Albumin [Mass/volume] in Serum or Plasma by Bromocresol green (BCG) dye binding methoLow3.5-5.7FJoint Township District Memorial HospitalAlkaline phosphatase [Enzymatic activity/volume] in Serum or PlasmaOrdered By: Melvi Qureshi on 61-85-3703XWK [Catalytic activity/Vol]Alkaline phosphatase [Enzymatic activity/volume] in Serum or Faonob93-476CzjoaoxjmSalem City HospitalAmbulatory Visit Summaryon 95-67-5868Byjgmnebxb Visit SummaryAmbulatory Visit Summary TAVO WALLIS :1940 Visit Date:07/12/2024 Ambulatory Visit Instructions Your Diagnosis Urinary retention BPH with obstruction/lower urinary tract symptoms History of kidney stones Anticoagulated Hypospadias Your Care Team Attending Physician - Anup TIDWELL, Trisha Degroot Primary Care Physician - NONE, XXXX This Is Your Medications List Contact prescribing physician if questions or concerns acetaminophen (acetaminophen 500 mg Tab) acetaminophen-oxycodone (Percocet 5 mg-325 mg oral tablet) allopurinol apixaban (Eliquis 5 mg oral tablet) atorvastatin (atorvastatin 40 mg Tab) bumetanide (bumetanide 1 mg oral tablet) carvedilol (Coreg 3.125 mg Tab) cyclobenzaprine (cyclobenzaprine 5 mg Tab) eszopiclone (eszopiclone 3 mg Tab) levothyroxine (Synthroid) magnesium oxide (magnesium oxide 400 mg Tab) potassium chloride (potassium chloride 20 mEq ER Tab) trazodone (traZODONE 50 mg Tab) Procedures Performed Cystoscopy and biopsy of bladder (07/12/2024), Arthrodesis, posterior or posterolateral technique, single interspace; lumbar (with lateral transverse technique, when performed) (02/21/2024), Autograft for spine surgery only (includes harvesting the graft); local (eg, ribs, spinous process, or laminar fragments) obtained from same incision (List separately in addition to code for primary procedure) (02/21/2024), Laminectomy, facetectomy and foraminotomy (unilateral or bilateral with decompression of spinal cord, cauda equina and/or nerve root[s], [eg, spinal or lateral recess stenosis]), single vertebral segment; lumbar (02/21/2024), Arthroplasty of knee, Arthroscopy of shoulder, Cardiac catheterization, Cataract, Closed reduction of nasal fracture, Colonoscopy, Epidural steroid injection,Extracorporeal shock wave lithotripsy (ESWL) of tendon using ultrasound (US) guidance, History of repair of rotator cuff, Procedure on back, Procedure on neck, Procedure on prostate, Prosthetic arthroplasty of hip, Total replacement of hip. Discharge Vitals Heart Rate (Peripheral) 80 Respiratory Rate 18 Blood Pressure 134/60 Height 63 cm Height 25 in Weight 98 kg Weight 216.053 lb BMI 246.91 What to do next Scheduled Follow-Up Appointments Tuesday 10:00 AM EDT With: Ambar Summers PA-C Where: [facility] [address] [place] [address]- You Need to Schedule the Following Appointments Follow Up with Anup TIDWELL, KAREEM Blanca, URO When: Where: Medications What How Much When Instructions Unchanged acetaminophen (acetaminophen 500 mg Tab) 1 Tablets By Mouth Every 6 hours Contact prescribing physician if questions or concerns Unchanged acetaminophen-oxycodone (Percocet 5 mg-325 mg oral tablet) 1 Tablets By Mouth Every 6 hours Contact prescribing physician if questions or concerns Unchanged allopurinol 300 Milligram By Mouth Every day Contact prescribing physician if questions or concerns Unchanged apixaban (Eliquis 5 mg oral tablet) 1 Tablets By Mouth 2 times a day Contact prescribing physician if questions or concerns Unchanged atorvastatin (atorvastatin 40 mg Tab) 1 Tablets By Mouth Every day Contact prescribing physician if questions or concerns Unchanged bumetanide (bumetanide 1 mg oral tablet) 1 Tablets By Mouth Every day Contact prescribingphysician if questions or concerns Unchanged carvedilol (Coreg 3.125 mg Tab) 1 Tablets By Mouth 2 times a day Contact prescribing physician if questions or concerns Unchanged cyclobenzaprine (cyclobenzaprine 5 mg Tab) 1 Tablets By Mouth At bedtime Contact prescribing physician if questions or concerns Unchanged eszopiclone (eszopiclone 3 mg Tab) 1 Tablets By Mouth Once a day (at bedtime) as needed for for insomnia Contact prescribing physician if questions or concerns Unchanged levothyroxine (Synthroid) 150 Microgram Every day Contact prescribing physician if questions or concerns Unchanged magnesium oxide (magnesium oxide 400 mg Tab) 1 Tablets By Mouth Every day Contact prescribing physician if questions or concerns Unchanged potassium chloride (potassium chloride 20 mEq ER Tab) 1 Tablets By Mouth Every day Contact prescribing physician if questions or concerns Unchanged trazodone (traZODONE 50 mg Tab) 1 Tablets By Mouth Once a day (at bedtime) Contact prescribing physician if questions or concerns Medications and Immunizations Administered Given lidocaine Top 2% Gel w/Appl 6 mL, 6 mL, Topical. For: Urinary retention, BPH with obstruction/lowerurinary tract symptoms, History of kidney stones, Anticoagulated Allergies Ambien (Hives) Duragesic-25 (Unknown) Indocin (Unknown) fentaNYL (Hallucinations) penicillin (Tingling, Weakness) Problems Ongoing - Any problem that you are currently receiving treatment for. Afib LIS (acute kidney injury) Anticoagulated Arthritis BPH with obstruction/lowe (more content not included)...[facility]ula General HospitalAspartate aminotransferase [Enzymatic activity/volume] in Serum or PlasmaOrdered By: Melvi Qureshi on 79-94-3917HFK [Catalytic activity/Vol]Aspartate aminotransferase [Enzymatic activity/volume] in Serum or Kpwlha72-05VlnyvofkiSalem City HospitalBNP ser/plasOrdered By: Melvi Qureshi on 07-12-2024 Natriuretic peptide B (Bld) [Mass/Vol]164.0 pg/mLHigh5-100Salem City HospitalComment on above:Result Comment: PERFORMED BY:[facility] [place], [place] [phone] MEDICAL DIRECTORJAJA CATES M.D.Performed By: #### BNP ####[facility] [place] [address] USABacteria [Presence] in Urine sediment by Light microscopyOrdered By: Melvi Qureshi on 22-65-2349Vdtmbjgm LM Ql (Urine sed)Bacteria [Presence] in Urine sediment by Light microscopyLicking Memorial HospitalBacteria LM Ql (Urine sed)1+ [HPF]Licking Memorial HospitalBand form neutrophils/100 WBC Manual cnt (Bld)Ordered By: Mario Jordan on 64-24-0000Hecb form neutrophils/100 WBC (Bld) Peripheral white blood cell differential % bands, microscopic exam0-Joint Township District Memorial HospitalBand form neutrophils/100 leukocytes in Blood by Manual countOrdered By: Mario Jordan on 35-97-4423Rikd form neutrophils/100 WBC (Bld)3 % Normal0-[facility] District Memorial HospitalComment on above:Order Comment: 4P/33 Performed By: #### DIFF CBC ####[facility] [id number] USABasophils Auto (Bld) [#/Vol]Ordered By: Melvi Qureshi on 96-99-6754Wlmsstjae (Bld) [#/Vol]Automated basophil count0.0-0.2FJoint Township District Memorial HospitalBasophils/100 WBC Auto (Bld)Ordered By: Melvi Qureshi on 15-23-5814Mzuepzfwr/100 WBC (Bld)Automated basophil %.Salem City HospitalBilirubin Test strip Ql (U)Ordered By: Melvi Qureshi on 73-36-5128Xgyhrakdl Ql (U)Bilirubin.total [Presence] in Urine by Test stripNegativeSalem City HospitalBilirubin Ql (U)See commentNegativeSalem City HospitalComment on above:Unable to obtain accurate result due to color interference.Bilirubin.total [Mass/volume] in Serum or PlasmaOrdered By: Melvi Qureshi on 48-15-1128Nushhdgai [Mass/Vol]Bilirubin.total [Mass/volume] in Serum or Plasma0.3-1.0Salem City HospitalBlood Cultureon 47-05-8533Gpxjdvoa identified Cx Nom (Bld)NormalThe [facility] Physician GroupComment on above: Performed By: #### HS TROP, CBC, CUBLD, MG, LACTIC, CMP ####[facility] [address] [place] [address] USACOVID Cepheid NegativeOrdered By: Melvi Qureshi on 63-54-4740CXHR-CoV-2 (COVID-19) Ab IA QlNegativeNegSumma HealthComment on above:This is a duplicate Cepheid Xpert Xpress CoV-2/Flu/RSV Plus RNA by RT-PCR result to be used for statistical tracking purpose only.SARS-CoV-2 (COVID-19) RNA SMITHA+probe Ql (Unsp spec)COVID CepheidNegativeTrinity Health System West CampusARS-CoV-2 (COVID-19) RNA SMITHA+probe Ql (Unsp spec)NegativeNormalNegativeSalem City Hospital Comment on above:Result Comment: This is a duplicate Cepheid Xpert Xpress CoV- 2/Flu/RSV Plus RNA by RT-PCR result zaira used for statistical tracking purpose only.PERFORMED BY:[address] [place], [place] [phone] MEDICAL DIRECTORJAJA CATES M.D. Performed By: #### COVID19 FLU RSV, CEPHEID NEG ####[address] [place] [address] USACalcium [Mass/volume] in Serum or PlasmaOrdered By: Melvi Qureshi on 16-39-8417Ninpbyc [Mass/Vol]Calcium [Mass/volume] in Serum or Plasma8.6-10.3FJoint Township District Memorial HospitalCarbon dioxide, total [Moles/volume] in Serum or PlasmaOrdered By: Melvi Qureshi on 69-60-2069JB6 [Moles/Vol]Carbon dioxide, total [Moles/volume] in Serum or Plasma 21.0-31.0Salem City HospitalChloride [Moles/volume] in Serum or PlasmaOrdered By: Melvi Qureshi on 87-01-5695Ulnbgnug [Moles/Vol]Chloride [Moles/volume] in Serum or Jwrcca97-067OecqtmupbSalem City HospitalComplete Blood Count Auto Diffon 68-31-5250Xnpjtactl (Bld) [#/Vol]0.0 10*3/uLNormal 0.0-0.2The [facility] Physician GroupComment on above:Result Comment: PERFORMED BY:[address] [place], [place] [phone] MEDICAL DIRECTORJAJA CATES M.D.Performed By: #### HS TROP, CBC, CUBLD, MG, LACTIC, CMP ####[place] [address] USABasophils/100 WBC (Bld)0.3 %Normal.[facility] Physician GroupComment on above:Performed By: #### HS TROP, CBC, CUBLD, MG, LACTIC, CMP ####[place] [address] USAEosinophils (Bld) [#/Vol]0.1 10*3/uLNormal0.0-0.45The [facility] Physician GroupComment on above:Performed By: #### HS TROP, CBC, CUBLD, MG, LACTIC, CMP ####[place] [address] USAEosinophils/100 WBC (Bld)1.3 %Normal.[facility] Comment on above:Performed By: #### HS TROP, CBC, CUBLD, MG, LACTIC, CMP ####[place] [address] [place] Erythrocyte distribution width (RBC) [Ratio]17.9 %High12.0-14.8The [facility] Physician GroupComment on above:Performed By: #### HS TROP, CBC, CUBLD, MG, LACTIC, CMP ####[place] [address] USAHematocrit (Bld) [Volume fraction]29.8 %Low38.8-50.0The [facility] Physician GroupComment on above:Performed By: #### HS TROP, CBC, CUBLD, MG, LACTIC, CMP ####[place] [address] USAHemoglobin (Bld) [Mass/Vol]9.9 g/dLLow13.0-17.0The [facility] Physician GroupComment on above:Performed By: #### HS TROP, CBC, CUBLD, MG, LACTIC, CMP ####[place] [address] [place] Lymphocytes (Bld) [#/Vol]0.3 10*3/uLLow1.00-4.8[facility] Comment on above:Performed By: #### HS TROP, CBC, CUBLD, MG, LACTIC, CMP ####[address] Lymphocytes/100 WBC (Bld)4.2 %Normal.The [facility] Physician GroupComment on above:Performed By: #### HS TROP, CBC, CUBLD, MG, LACTIC, CMP ####[address] (RBC) [Entitic mass]30.1 feBvurxt12.5-35.2The [facility] Physician GroupComment on above: Performed By: #### HS TROP, CBC, CUBLD, MG, LACTIC, CMP ####[address] (RBC) [Entitic vol]90.8 fL Emmirg85.5-101The [facility] Physician GroupComment on above:Performed By: #### HS TROP, CBC, CUBLD, MG, LACTIC, CMP ####[place] [address] USAMean Corpuscular HGB Conc33.2 g/dLNormal 32.5-35.6The [facility] Physician GroupComment on above:Performed By: #### HS TROP, CBC, CUBLD, MG, LACTIC, CMP ####[place] [address] USAMonocyte Distribution WidthNot performedNormal 0.00-20.00The [facility] Physician GroupComment on above:Result Comment: Unable to calculate MDW because the Absolute Monocyte Count is <0.8.Performed By: #### HS TROP, CBC, CUBLD, MG, LACTIC, CMP ####[place] [address] USAMonocytes (Bld) [#/Vol]0.0 10*3/uLNormal 0.0-0.8The [facility] Physician GroupComment on above:Performed By: #### HS TROP, CBC, CUBLD, MG, LACTIC, CMP ####[address] [address] USAMonocytes/100 WBC (Bld)0.4 %Normal.The [facility] Physician GroupComment on above:Performed By: #### HS TROP, CBC, CUBLD, MG, LACTIC, CMP ####[place] [address] USANeutrophils (Bld) [#/Vol]6.3 10*3/uLNormal1.8-7.7The [facility] Physician GroupComment on above:Performed By: #### HS TROP, CBC, CUBLD, MG, LACTIC, CMP ####[place] [address] USANeutrophils/100 WBC (Bld)93.8 %Normal.[facility] Comment on above:Performed By: #### HS TROP, CBC, CUBLD, MG, LACTIC, CMP ####[address] USANRBC% 0.2 /100{WBC}Normal0-0.5The [facility] Physician GroupComment on above:Performed By: #### HS TROP, CBC, CUBLD, MG, LACTIC, CMP ####[address] USAPlatelet mean volume (Bld) [Entitic vol]7.2 fLNormal6.6-10.1The [facility] Physician GroupComment on above:Performed By: #### HS TROP, CBC, CUBLD, MG, LACTIC, CMP ####[place] [address] USAPlatelets (Bld) [#/Vol]288 10*3/uL Yzltiy553-211Gyz [facility] Physician GroupComment on above:Performed By: #### HS TROP, CBC, CUBLD, MG, LACTIC, CMP ####[place] [address] USARBC (Bld) [#/Vol]3.28 10*6/uLLow3.90-5.60The [facility] Physician GroupComment on above:Performed By: #### HS TROP, CBC, CUBLD, MG, LACTIC, CMP ####[place] [address] USAWBC (Bld) [#/Vol]6.5 10*3/uLNormal4.1-10.5The [facility] Physician GroupComment on above:Performed By: #### HS TROP, CBC, CUBLD, MG, LACTIC, CMP ####[address] USAComprehensive Metabolic Panelon 31-70-0909Mizlvsr [Mass/Vol]3.4 g/dLLow3.5-5.7The [facility] Physician GroupComment on above: Performed By: #### HS TROP, CBC, CUBLD, MG, LACTIC, CMP ####[place] [address] USAAlbumin/Globulin [Mass ratio] 1.0 {ratio}NormalThe [facility] Hospital Physician GroupComment on above:Performed By: #### HS TROP, CBC, CUBLD, MG, LACTIC, CMP ####[address] USAALP [Catalytic activity/Vol]100 U/LNormal 34-104The [facility] Physician GroupComment on above:Performed By: #### HS TROP, CBC, CUBLD, MG, LACTIC, CMP ####[place] [address] USAALT [Catalytic activity/Vol]6 U/LLow7-52The [facility] Physician GroupComment on above:Performed By: #### HS TROP, CBC, CUBLD, MG, LACTIC, CMP ####[address] USAAnion gap [Moles/Vol]9.7 mmol/LNormal6.0-15.0The [facility] Physician GroupComment on above:Performed By: #### HS TROP, CBC, CUBLD, MG, LACTIC, CMP ####[place] [address] USAAST [Catalytic activity/Vol]13 U/QVunudg69-12Dii [facility] Physician GroupComment on above:Performed By: #### HS TROP, CBC, CUBLD, MG, LACTIC, CMP ####[place] [address] USABilirubin [Mass/Vol]0.6 mg/dLNormal0.3-1.0The [facility] Physician GroupComment on above:Performed By: #### HS TROP, CBC, CUBLD, MG, LACTIC, CMP ####[place] [address] USACalcium [Mass/Vol]9.0 mg/dLNormal8.6-10.3The [facility] Physician GroupComment on above:Performed By: #### HS TROP, CBC, CUBLD, MG, LACTIC, CMP ####[place] [address] USAChloride [Moles/Vol]102 mmol/WGflgny83-910Kbb [facility] Physician GroupComment on above:Performed By: #### HS TROP, CBC, CUBLD, MG, LACTIC, CMP ####[place] [address] USACO2 [Moles/Vol]27.2 mmol/QPefyrv20.0-31.0The [facility] Physician GroupComment on above:Performed By: #### HS TROP, CBC, CUBLD, MG, LACTIC, CMP ####[place] [address] USACreatinine [Mass/Vol]1.62 mg/dLHigh0.70-1.30The [facility] Physician GroupComment on above:Performed By: #### HS TROP, CBC, CUBLD, MG, LACTIC, CMP ####[place] [address] USACreatinine Clr Calc Zkrvrskp27.97NormHCA Florida Clearwater Emergency Physician GroupComment on above:Performed By: #### HS TROP, CBC, CUBLD, MG, LACTIC, CMP ####[place] [address] USAEstimated GFR42.119 mL/MinNoCritical access hospital Physician GroupComment on above:Performed By: #### HS TROP, CBC, CUBLD, MG, LACTIC, CMP ####[place] [address] USAGlobulin (S) [Mass/Vol]3.3 g/dLNormalThe [facility] Physician GroupComment on above:Performed By: #### HS TROP, CBC, CUBLD, MG, LACTIC, CMP ####[place] [address] USAGlucose [Mass/Vol]69 mg/eFYxy89-177Ibv [facility] Physician GroupComment on above:Result Comment: Random Glucose Reference Range is dependent on time and content of last meal. Glucose of more than 200 mg/dL in a nonstressed, ambulatory subject supports the diagnosis of Diabetes Mellitus. ADA recommended reference rangePerformed By: #### HS TROP, CBC, CUBLD, MG, LACTIC, CMP ####[place] [address] USAPotassium [Moles/Vol]3.9 mmol/LNormal3.5-5.1The [facility] Physician GroupComment on above:Performed By: #### HS TROP, CBC, CUBLD, MG, LACTIC, CMP ####[place] [address] USAProtein [Mass/Vol]6.7 g/dLNormal6.4-8.9The [facility] Physician GroupComment on above:Performed By: #### HS TROP, CBC, CUBLD, MG, LACTIC, CMP ####[place] [address] USASodium [Moles/Vol]135 mmol/RKmm809-990Vka [facility] Comment on above:Performed By: #### HS TROP, CBC, CUBLD, MG, LACTIC, CMP ####[place] [address] USAUrea nitrogen [Mass/Vol]33 mg/dLHigh7-25The [facility] Physician GroupComment on above:Performed By: #### HS TROP, CBC, CUBLD, MG, LACTIC, CMP ####[address] [address] USACreatinine [Mass/volume] in Serum or PlasmaOrdered By: Melvi Qureshi on 38-79-6807Csitalcclk [Mass/Vol]Creatinine [Mass/volume] in Serum or PlasmaHigh0.70-1.30Salem City HospitalDiff and CBCon 86-26-4223Xfawwyknzuio Ql (Bld)Slight NormalThe [facility] Physician GroupComment on above:Order Comment: Performed By: #### DIFF CBC ####[place] [address] USAErythrocyte distribution width (RBC) [Ratio]18.2 % High12.0-14.8The [facility] Physician GroupComment on above:Order Comment: Performed By: #### DIFF CBC ####[place] [address] USAHematocrit (Bld) [Volume fraction]28.2 %Low38.8-50.0 [facility] Physician GroupComment on above:Order Comment: Performed By: #### DIFF CBC ####[address] [address] USAHemoglobin (Bld) [Mass/Vol]9.0 g/dLLow13.0-17.0The [facility] Physician GroupComment on above:Order Comment: Performed By: #### DIFF CBC ####[address] [address] USAMCH (RBC) [Entitic mass]29.4 huGwtxxj55.5-35.2The [facility] Physician GroupComment on above:Order Comment: Performed By: #### DIFF CBC ####[place] [address] USAMCV (RBC) [Entitic vol]91.9 fL Tjdnxy40.5-101The [facility] Physician GroupComment on above:Order Comment: Performed By: #### DIFF CBC ####[place] [address] USAMean Corpuscular HGB Conc32.0 g/dLLow32.5-35.6The [facility] Physician GroupComment on above:Order Comment: Performed By: #### DIFF CBC ####[address] [address] USAMicrocytosisSlightNoCritical access hospital Physician GroupComment on above:Order Comment: Performed By: #### DIFF CBC ####[place] [address] USAMonocytes/100 WBC (Bld)29.58 %High0.00-20.00 [facility] Physician GroupComment on above:Order Comment: Result Comment: For adults in ED, MDW > 20.0 may be associated with a higher risk of sepsis during the first 12 hrs of hospital admission The predictive value of MDW for identifying sepsis in patients with hematological abnormalities has not been establishedPerformed By: #### DIFF CBC ####[address] [address] USAOvalocytesSlightNoCritical access hospital Physician GroupComment on above:Order Comment: Performed By: #### DIFF CBC ####[address] [address] [place] Platelet EstimateNormalNormalNormHCA Florida Clearwater Emergency Physician GroupComment on above:Order Comment: Performed By: #### DIFF CBC ####[address] [address] USAPlatelet mean volume (Bld) [Entitic vol]7.3 fLNormal6.6-10.1The [facility] Physician GroupComment on above: Order Comment: Performed By: #### DIFF CBC ####[address] [address] USAPlatelet MorphologyNormalNormalNormal [facility] Physician GroupComment on above:Order Comment: Result Comment: PERFORMED BY:[address] [place], [place] [phone] MEDICAL DIRECTORJAJA CATES M.D. Performed By: #### DIFF CBC ####[address] [address] USAPlatelets (Bld) [#/Vol]217 10*3/yDWveldn746-411Xvk [facility] Physician GroupComment on above:Order Comment: 4PPerformed By: #### DIFF CBC ####[address] [address] USAPoikilocytosisSlightNoCritical access hospital Physician GroupComment on above:Order Comment: 4PPerformed By: #### DIFF CBC ####[address] [address] USARBC (Bld) [#/Vol]3.07 10*6/uLLow 3.90-5.60The [facility] Physician GroupComment on above:Order Comment: 4 Performed By: #### DIFF CBC ####[address] [address] USAStomatocytesSlightNoCritical access hospital Physician GroupComment on above:Order Comment: 4Performed By: #### DIFF CBC ####[address] [address] USAWBC (Bld) [#/Vol]21.3 10*3/uLHigh4.1-10.5The [facility] Physician GroupComment on above:Order Comment: Performed By: #### DIFF CBC ####[address] [address] USADipstick and Microscopicon 07-19-6296Kvtxuawu,Urine1+HighNone SeenThe [facility] Hospital Physician GroupComment on above:Order Comment: Name Collection Type:: Chou CatheterResult Comment: PERFORMED BY:[place] [address] [address] QUANToshaDaneAMEENABUFFALO, [place] [phone] MEDICAL DIRECTORJAJA CATES M.D. Performed By: #### ADDONUAPLUS ####[address] [facility] [place] [address] USABilirubin,UrineNormalNegativeWinter Haven Hospital Physician GroupComment on above:Order Comment: Name Collection Type:: Chou Catheter Result Comment: Unable to obtain accurate result due to color interference. Performed By: #### ADDONUAPLUS ####[address] [place] [address] USAGlucose Ql (U)NormalNormalThe [facility] Physician GroupComment on above:Order Comment: Name Collection Type:: Chou CatheterResult Comment: Unable to obtain accurate result due to color interference.Performed By: #### ADDONUAPLUS ####[address] [place] [address] USAKetones Ql (U)NormalNegativeWinter Haven Hospital Physician GroupComment on above:Order Comment: Name Collection Type:: Chou CatheterResult Comment: Unable to obtain accurate result due to color interference.Performed By: #### ADDONUAPLUS ####[address] [place] [address] USALeukocyte esterase Test strip Ql (U)NormalNegative [facility] Physician GroupComment on above:Order Comment: Name Collection Type:: Chou CatheterResult Comment: Unable to obtain accurate result due to color interference.Performed By: #### ADDONUAPLUS ####[address] [place] [address] USANitrite,UrineNormalNegativeWinter Haven Hospital Physician GroupComment on above:Order Comment: Name Collection Type:: Chou CatheterResult Comment: Unable to obtain accurate result due to color interference.Performed By: #### ADDONUAPLUS ####[address] [place] [address] USAOccult Blood,UrineNormalNegativeWinter Haven Hospital Physician GroupComment on above:Order Comment: Name Collection Type:: Chou CatheterResult Comment: Unable to obtain accurate result due to color interference.Performed By: #### ADDONUAPLUS ####[address] [place] [address] USApH,UrineNormal5.0-9.0[facility] Physician GroupComment on above:Order Comment: Name Collection Type:: Chou CatheterResult Comment: Unable to obtain accurate result due to color interference.Performed By: #### ADDONUAPLUS ####[address] [place] [address] USAProtein,UrineNormalNegativeWinter Haven Hospital Physician GroupComment on above:Order Comment: Name Collection Type:: Chou CatheterResult Comment: Unable to obtain accurate result due to color interference.Performed By: #### ADDONUAPLUS ####[address] [place] [address] USARBC,UrineInnumerableHigh0-4The [facility] Physician GroupComment on above:Order Comment: Name Collection Type:: Chou CatheterPerformed By: #### ADDONUAPLUS ####[address] [address] USASpecificy Delta,Urine1.020Normal 1.001-1.030The [facility] Physician GroupComment on above:Order Comment: Name Collection Type:: Chou CatheterPerformed By: #### ADDONUAPLUS ####[address] [address] USASquamous Epithelial Cell,Grfps2-7Fzmzkz4-4Lhh [facility] Physician GroupComment on above:Order Comment: Name Collection Type:: Chou CatheterPerformed By: #### ADDONUAPLUS ####[address] [address] [place] Urobilinogen,UrineNormalNormalThe [facility] Physician GroupComment on above: Order Comment: Name Collection Type:: Chou CatheterResult Comment: Unable to obtain accurate result due to color interference.Performed By: #### ADDONUAPLUS ####[address] [address] [place] WBC,Wlvnk12-18Psuy0-8Khc [facility] Physician GroupComment on above:Order Comment: Name Collection Type:: Chou CatheterPerformed By: #### ADDONUAPLUS ####[address] [address] USAECG 12 lead ECGon 54-99-5342HGU 12 lead ECGNormalThe [facility]ician Group Eosinophils Auto (Bld) [#/Vol]Ordered By: Melvi Qureshi on 42-96-0546Vjprjehtzji (Bld) [#/Vol]Automated eosinophil count0.0-0.45[facility] Eosinophils/100 WBC Auto (Bld)Ordered By: Melvi Qureshi on 07-12-2024 Eosinophils/100 WBC (Bld)Automated eosinophil %.[facility] HospitalEosinophils/100 WBC Manual cnt (Bld)Ordered By: aMrio Jordan on 07-12-2024 Eosinophils/100 WBC (Bld)Eosinophils/100 leukocytes in Blood by Manual count1- [facility] HospitalEosinophils/100 leukocytes in Blood by Manual countOrdered By: Mario Jordan on 17-66-4531Eneaoijbqij/100 WBC (Bld)1 %Normal1-3 [facility] HospitalComment on above:Order Comment: 4P/33Performed By: #### DIFF CBC ####[facility] [place] [address] [facility] CENTEREpithelial cells.squamous [#/area] in Urine sediment by Microscopy high power fieldOrdered By: Melvi Qureshi on 94-66-1315Qhwzoxbfno cells.squamous LM.HPF (Urine sed) [#/Area]Epithelial cells.squamous [#/area] in Urine sediment by Microscopy high power field0-2FJoint Township District Memorial HospitalEpithelial cells.squamous LM.HPF (Urine sed) [#/Area]0-1 [HPF]0-2FJoint Township District Memorial HospitalErythrocyte distribution width Auto (RBC) [Ratio]Ordered By: Melvi Qureshi on 48-44-6950Xzajnmewpaj distribution width (RBC) [Ratio]Erythrocyte distribution width [Ratio] by Automated viwofAhjy73.0-14.8[facility] HospitalErythrocytes [#/area] in Urine sediment by Microscopy high power fieldOrdered By: Melvi Qureshi on 01-42-2962ONQ LM.HPF (Urine sed) [#/Area] Erythrocytes [#/area] in Urine sediment by Microscopy high power fieldHigh0-4 [facility] HospitalRB LM.HPF (Urine sed) [#/Area]Innumerable [HPF]High0-4FJoint Township District Memorial HospitalGlobulin Calc (S) [Mass/Vol]Ordered By: Melvi Qureshi on 94-39-8318Pmoyatql (S) [Mass/Vol]Serum globulin measurement by calculation (mass/volume)[facility] HospitalGlucose [Mass/volume] in Serum or PlasmaOrdered By: Melvi Qureshi on 29-50-1898Yfpmdss [Mass/Vol]Glucose [Mass/volume] in Serum or XtmfzkVgr74-948CtmmqymgwSalem City HospitalGlucose [Mass/volume] in Urine by Test stripOrdered By: Melvi Qureshi on 13-58-9708Zfjezek Test strip (U) [Mass/Vol]Glucose [Mass/volume] in Urine by Test stripNormalSalem City HospitalGlucose Test strip (U) [Mass/Vol]See commentNormProMedica Toledo HospitalComment on above: Unable to obtain accurate result due to color interference.Hematocrit Auto (Bld) [Volume fraction]Ordered By: Melvi Qureshi on 24-77-5481Wqoiweizqz (Bld) [Volume fraction]Hematocrit [Volume Fraction] of Blood by Automated kqpogPfi56.8-50.0 [facility] HospitalHemoglobin Test strip Ql (U)Ordered By: Melvi Qureshi on 51-76-7145Aqaybnunqo Ql (U)Hemoglobin [Presence] in Urine by Test strip NegativeSalem City HospitalHemoglobin Ql (U)See commentNegative [facility] HospitalComment on above:Unable to obtain accurate result due to color interference.Hemoglobin [Mass/volume] in BloodOrdered By: Melvi Qureshi on 01-34-1929Knpxfuudln (Bld) [Mass/Vol]Hemoglobin [Mass/volume] in LzuopSfg86.0-17.0[facility] HospitalKetones Test strip (U) [Mass/Vol]Ordered By: Melvi Qureshi on 84-77-4551Gsqasji (U) [Mass/Vol]Urine ketones measurement by test strip (mass/volume)NegativeSalem City HospitalKetones (U) [Mass/Vol]See commentNegativeSalem City HospitalComment on above:Unable to obtain accurate result due to color interference.Laboratory - Microbiology and Antimicrobial susceptibilityOrdered By: Melvi Qureshi on 67-43-3758Bdglwvky identified Cx Nom (Bld)Enterococcus faecalisAbnoKettering Health Main CampusBacteria identified Cx Nom (Bld)Pseudomonas aeruginosaAbnoKettering Health Main CampusLactate [Moles/volume] in Serum or PlasmaOrdered By: Mario Jordan on 64-84-9341Tcvhqot [Moles/Vol]Lactate [Moles/volume] in Serum or PlasmaCritically high0.5-1.9 [facility] HospitalLactate [Moles/Vol]2.2 mmol/LCritically high 0.5-1.9[facility] HospitalComment on above:Critical Result : Called to and read back by: LEXIS DARNELL at: 07/13/2024 00:27:29 by:DHLactic Acid reference range has been updated to 0.5 1.9 mmol/L and the critical range of 2.0 or greater.Lactate [Moles/Vol]Lactate [Moles/volume] in Serum or Plasma Critically high0.5-1.9[facility] HospitalLactic Acidon 07-12-2024 Lactate [Moles/Vol]2.2 mmol/LOff scale high0.5-1.9[facility] Comment on above:Order Comment: 4P/33Result Comment: Critical Result : Called to and read back by: ALTON HYMAN at: 07/12/2024 19:37:40 by:PAB Lactic Acid reference range has been updated to 0.5 ? 1.9 mmol/L and the critical range of 2.0 or greater.PERFORMED BY:[facility] HOSPITALDARCI [place], [place] [phone] MEDICAL DIRECTORJAJA WHITE M.D.Performed By: #### LACTIC ####[address] [place] [address] USALactate [Moles/Vol]2.3 mmol/LOff scale high 0.5-1.9The [facility] Physician GroupComment on above:Result Comment: Critical Result : Called to and read back by: DORA DARDEN at: 07/12/2024 16:01:14 by:PAB Lactic Acid reference range has been updated to 0.5 ? 1.9 mmol/L and the critical range of 2.0 or greater.PERFORMED BY:[place] [address] [address] GOLDSTEINDaneAMEENABU[place], [place] [phone] MEDICAL DIRECTORJAJA CATES M.D.Performed By: #### HS TROP, CBC, CUBLD, MG, LACTIC, CMP ####[address] [address] USALactic Acid Reflexon 48-22-0685Rpdmta Acid Reflex2.2 mmol/LOff scale high0.5-1.9The [facility] Physician GroupComment on above:Order Comment: CHANGE PER FRANCES PIRES KAHResult Comment: Critical Result : Called to and read back by: LEXIS DARNELL at: 07/13/2024 00:27:29 by:DH Lactic Acid reference range has been updated to 0.5 ? 1.9 mmol/L and the critical range of 2.0 orgreater.PERFORMED BY:[address] [address] [address] [place], [place] [phone] MEDICAL DIRECTORJAJA CATES M.D. Performed By: #### LACTIC RFX ####[address] [address]WGIDgqngg Acid Reflex3.0 mmol/LOff scale high0.5-1.9The [facility] Physician GroupComment on above:Result Comment: Critical Result : Called to and read back by: KATE DUBON at: 07/12/2024 21:43:37 by:PAB Lactic Acid reference range has been updated to 0.5 ? 1.9 mmol/L and the critical range of 2.0 or greater.PERFORMED BY:[address] [address] [address] [place], [place] [phone] MEDICAL DIRECTORJAJA WHITE M.D.Performed By: #### LACTIC RFX ####[address] [address]ACIByelsqnlb esterase [Presence] in Urine by Test stripOrdered By: Melvi Qureshi on 22-53-5701Ijvnegmjd esterase Test strip Ql (U)Leukocyte esterase [Presence] in Urine by Test stripNegativeSalem City HospitalLeukocyte esterase Test strip Ql (U)See commentNegative [facility] HospitalComment on above:Unable to obtain accurate result due to color interference.Leukocytes [#/area] in Urine sediment by Microscopy high power fieldOrdered By: Melvi Qureshi on 03-00-9738ZQB LM.HPF (Urine sed) [#/Area]Leukocytes [#/area] in Urine sediment by Microscopy high power fieldHigh0-4FJoint Township District Memorial HospitalWBC LM.HPF (Urine sed) [#/Area]10-19 [HPF]High011 Jennings StreetLeukocytes [#/volume] corrected for nucleated erythrocytes in Blood by Automated counOrdered By: Melvi Qureshi on 46-88-0718QKV corrected for nucl RBC Auto (Bld) [#/Vol]Leukocytes [#/volume] corrected for nucleated erythrocytes in Blood by Automated coun 4.1-10.5FJoint Township District Memorial HospitalLymphocytes Auto (Bld) [#/Vol]Ordered By: Melvi Qureshi on 34-59-9938Cyshbfmhmpl (Bld) [#/Vol]Lymphocytes [#/volume] in Blood by Automated countLow1.00-4.8[facility] Lymphocytes/100 WBC Auto (Bld)Ordered By: Melvi Qureshi on 07-12-2024 Lymphocytes/100 WBC (Bld)Lymphocytes/100 leukocytes in Blood by Automated count. [facility] HospitalLymphocytes/100 WBC Manual cnt (Bld)Ordered By: Mario Jordan on 68-68-5079Hsxctkodqiy/100 WBC (Bld)Lymphocytes/100 leukocytes in Blood by Manual yexqzQyf85-57ChlblxvgaSalem City HospitalLymphocytes/100 leukocytes in Blood by Manual countOrdered By: Mario Jordan on 07-12-2024 Lymphocytes/100 WBC (Bld)2 %Qln43-17JrindhjcgSalem City HospitalComment on above:Order Comment: 4P/33Performed By: #### DIFF CBC ####[facility] [place] [address] [facility] Auto (RBC) [Entitic mass] Ordered By: Melvi Qureshi on 34-69-3751LKF (RBC) [Entitic mass]MCH [Entitic mass] by Automated count27.5-35.2FLancaster Municipal HospitalHC Auto (RBC) [Mass/Vol]Ordered By: Melvi Qureshi on 42-63-5597LBIA (RBC) [Mass/Vol]MCHC [Mass/volume] by Automated count32.5-35.6FLancaster Municipal HospitalV Auto (RBC) [Entitic vol]Ordered By: Melvi Qureshi on 13-74-0679PUR (RBC) [Entitic vol]MCV [Entitic volume] by Automated count83.5-101[facility] HospitalMagnesiumon 06-90-6756Dlftdtzwi [Mass/Vol]1.7 mg/dLLow1.9-2.7The [facility] Physician GroupComment on above:Result Comment: PERFORMED BY:[address] [place], [place] [phone] MEDICAL DIRECTORJAJA CATES M.D.Performed By: #### HS TROP, CBC, CUBLD, MG, LACTIC, CMP ####[facility] [place] [address] USAMagnesium [Mass/volume] in Serum or PlasmaOrdered By: Melvi Qureshi on 33-07-6854Sdcjanheh [Mass/Vol]Magnesium [Mass/volume] in Serum or PlasmaLow 1.9-2.7FJoint Township District Memorial HospitalMonocyte distribution width [Entitic volume] in Blood by AutomatedOrdered By: Melvi Qureshi on 22-83-4613Oyswxtit distribution width Auto (Bld) [Entitic vol]Monocyte distribution width [Entitic volume] in Blood by AutomatedHigh0.00-20.00[facility] Monocyte distribution width [Entitic volume] in Blood by AutomatedOrdered By: Mario Jordan on 82-05-4119Wxcwjgcf distribution width Auto (Bld) [Entitic vol] 29.58 %High0.00-20.00[facility] HospitalComment on above:For adults in ED, MDW > 20.0 may be associated with a higher risk of sepsis during the first 12 hrs of hospital admissionThe predictive value of MDW for identifying sepsis in patients with hematological abnormalities has not been establishedMonocytes Auto (Bld) [#/Vol]Ordered By: Melvi Qureshi on 07-12-2024 Monocytes (Bld) [#/Vol]Automated blood monocyte count0.0-0.8[facility] HospitalMonocytes/100 WBC Auto (Bld)Ordered By: Melvi Qureshi on 07-12-2024 Monocytes/100 WBC (Bld)Automated monocyte %.[facility] Monocytes/100 WBC Manual cnt (Bld)Ordered By: Mario Jordan on 07-12-2024 Monocytes/100 WBC (Bld)Monocytes/100 leukocytes in Blood by Manual countLow2 [facility] HospitalMonocytes/100 leukocytes in Blood by Manual countOrdered By: Mario Jordan on 89-80-4139Piecpdtsb/100 WBC (Bld)1 %Low2- [facility] HospitalComment on above:Order Comment: 4P/33Performed By: #### DIFF CBC ####[facility] [address] [place] [address] USANatriuretic peptide B [Mass/Vol]Ordered By: Melvi Qureshi on 22-41-0427Rfvhhmsmzgr peptide B (Bld) [Mass/Vol]BNP ser/plasHigh5-100[facility] HospitalNeutrophils Auto (Bld) [#/Vol]Ordered By: Melvi Qureshi on 25-84-9761Xeasgpoywac (Bld) [#/Vol]Neutrophils [#/volume] in Blood by Automated count1.8-7.7FJoint Township District Memorial HospitalNeutrophils/100 WBC Auto (Bld) Ordered By: Melvi Qureshi on 80-86-9187Kceyopwqwxp/100 WBC (Bld)Automated neutrophil %.[facility] HospitalNiite Test strip Ql (U)Ordered By: Melvi Qureshi on 50-30-9599Xuoicmw Ql (U)Nitrite [Presence] in Urine by Test stripNegativeSalem City HospitalNitrite Ql (U)See commentNegative [facility] HospitalComment on above:Unable to obtain accurate result due to color interference.No Panel InformationOrdered By: Melvi Qureshi on 43-99-9528Uwfspqkoj ID (NA Multiplex Assay)[facility] AbnormalSalem City HospitalAbnormProMedica Toledo HospitalEnterococcus faecalisAbnoKettering Health Main CampusPseudomonas aeruginosaAbnoKettering Health Main Campus42.119 mL/MinSalem City Hospital38.97[facility] HospitalNucleated erythrocytes [Presence] in Blood by Automated countOrdered By: Melvi Qureshi on 90-29-4358Shgopmbrd RBC Auto Ql (Bld)Nucleated erythrocytes [Presence] in Blood by Automated count0-0.5FJoint Township District Memorial HospitalPlatelet mean volume Auto (Bld) [Entitic vol]Ordered By: Melvi Qureshi on 31-52-6710Ptwwcyuo mean volume (Bld) [Entitic vol]Platelet mean volume [Entitic volume] in Blood by Automated count6.6-10.1FJoint Township District Memorial HospitalPlatelets Auto (Bld) [#/Vol]Ordered By: Melvi Qureshi on 43-56-5247Qzjtsqvyj (Bld) [#/Vol]Platelets [#/volume] in Blood by Automated udtjb174-579UcajxigduSalem City Hospital Potassium [Moles/volume] in Serum or PlasmaOrdered By: Melvi Qureshi on 07-12-2024 Potassium [Moles/Vol]Potassium [Moles/volume] in Serum or Plasma3.5-5.1FJoint Township District Memorial HospitalProtein Test strip (U) [Mass/Vol]Ordered By: Melvi Qureshi on 04-22-8272Fmeulwx (U) [Mass/Vol]Protein [Mass/volume] in Urine by Test strip NegativeSalem City HospitalProtein (U) [Mass/Vol]See comment NegativeSalem City HospitalComment on above:Unable to obtain accurate result due to color interference.Protein [Mass/volume] in Serum or PlasmaOrdered By: Melvi Qureshi on 11-58-3690Ykyzpop [Mass/Vol]Protein [Mass/volume] in Serum or Plasma6.4-8.9[facility] HospitalRBC Auto (Bld) [#/Vol]Ordered By: Melvi Qureshi on 99-70-2640LYK (Bld) [#/Vol]Erythrocytes [#/volume] in Blood by Automated countLow3.90-5.60[facility] HospitalRespiratory specimen influenza A virus, influenza B virus, respiratory syncytical virOrdered By: Melvi Qureshi on 31-13-5559UCFE-CoV-2 (COVID-19) RNA SMITHA+probe Ql (Unsp spec)NormalSalem City HospitalComment on above: Performed By: #### COVID19 FLU RSV, CEPHEID NEG ####[facility] [address] [place] [address] USASegmented neutrophils/100 WBC Manual cnt (Bld)Ordered By: Mario Jordan on 59-91-2869Lwgmuijtd neutrophils/100 WBC (Bld)Manual blood segmented neutrophils/100 dvbkveiotiIdvj23-25KztiyotefTrinity Health System West Campusegmented neutrophils/100 leukocytes in Blood by Manual countOrdered By: Mario Jordan on 43-90-3540Qkszngych neutrophils/100 WBC (Bld)93 %Eatm25-88SgohzdatiSalem City HospitalComment on above:Order Comment: 4P/33 Performed By: #### DIFF CBC ####[facility] [address] [place] [address] USASerum or plasma albumin/globulin mass ratioOrdered By: Melvi Qureshi on 45-43-1240Roejgjy/Globulin [Mass ratio]Serum or plasma albumin/globulin mass ratioTrinity Health System West Campuserum or plasma anion gap determinationOrdered By: Melvi Qureshi on 74-83-5912Ehfke gap [Moles/Vol]Serum or plasma anion gap determination6.0-15.0Tr[facility] West Campusodium [Moles/volume] in Serum or PlasmaOrdered By: Melvi Qureshi on 66-40-0359Txfqsp [Moles/Vol]Sodium [Moles/volume] in Serum or IjonqxCdq281-808 [facility] Campuspecific gravity of Urine by Refractometry Ordered By: Melvi Qureshi on 92-67-7220Ldfvjlik gravity Refractometry (U) [Rel density]Specific gravity of Urine by Refractometry1.001-1.030[facility] Health [facility] West Campuspecific gravity Refractometry (U) [Rel density]1.0201.001-1.030 [facility] West Campustomatocytes [Presence] in Blood by Light microscopyOrdered By: Mario Jordan on 35-23-6902Clurhhftveft LM Ql (Bld)Red blood cell stomatocyte detectionTrinity Health System West Campustomatocytes LM Ql (Bld)SlightSalem City HospitalTroponin I High Sensitivityon 53-66-4856Gpsfacjh I High Oesmznlalzt16Cubd2-25Toz [facility] Comment on above:Result Comment: The Troponin units of report have been changed to meet the Chest Pain Accreditationrequirement, element EC5.M1l2. Troponin units are changed from pg/ml to ng/L. Also, the decimal is removed and results are in whole numbers.PERFORMED BY:[address] [place], [place] [phone] MEDICAL DIRECTORJAJA WHITE M.D.Performed By: #### HS TROP, CBC, CUBLD, MG, LACTIC, CMP ####[address] [address] [facility] Troponin I.cardiac [Mass/volume] in Serum or Plasma by Detection limit <= 0.01 ng/Ordered By: Melvi Qureshi on 48-52-1672Mrbcwqfs I.cardiac DL <= 0.01 ng/mL [Mass/Vol]Troponin I.cardiac [Mass/volume] in Serum or Plasma by Detection limit <= 0.01 ng/High0[facility] HospitalTroponin I.cardiac [Mass/volume] in Serum or Plasma by Detection limit <= 0.01 ng/mLOrdered By: Melvi Qureshi on 30-11-3921Lyczensd I.cardiac DL <= 0.01 ng/mL [Mass/Vol]21 ng/L High0-[facility] HospitalComment on above:The Troponin units of report have been changed to meet the Chest Pain Accreditation requirement, jeremy ment EC5.M1l2. Troponin units are changed from pg/ml to ng/L. Also, the decimal is removed and results are in whole numbers.Urea nitrogen [Mass/volume] in Serum or PlasmaOrdered By: Melvi Qureshi on 37-53-6267Hjnk nitrogen [Mass/Vol]Urea nitrogen [Mass/volume] in Serum or PlasmaHigh7-25[facility] HospitalUrine Cultureon 33-81-9609Czrqzgbo identified Cx Nom (U)NormalThe [facility] Physician GroupComment on above:Performed By: #### CUU ####[facility] [address] [place] [address] USAUrine appearance determinationOrdered By: Melvi Qureshi on 25-98-0670Sfbpdihwnh (U)Urine appearance AbnormalCleOhioHealth Shelby HospitalAppearance (U)TurbidCritically abnormalMetroHealth Parma Medical CenterComment on above:Order Comment: Name Collection Type:: Chou CatheterPerformed By: #### ADDONUAPLUS ####[facility] [address] [place] [address] USAUrine color determinationOrdered By: Melvi Qureshi on 00-70-3005Bxpav (U)Urine color AbnormalYellowSalem City HospitalColor (U)RedCritically abnormal YellowSalem City HospitalComment on above:Order Comment: Name Collection Type:: Chou CatheterPerformed By: #### ADDONUAPLUS ####[facility] [address] [place] [address] USAUrine cultureOrdered By: Rowena Jordan on 77-94-9042Nohykuvu identified Cx Nom (U)Pseudomonas aeruginosaAbUniversity Hospitals Cleveland Medical CenterBacteria identified Cx Nom (U)Enterococcus faecalisAbUniversity Hospitals Cleveland Medical CenterUrine culture AbnormalSalem City HospitalUrine cultureAbUniversity Hospitals Cleveland Medical CenterUrobilinogen Test strip (U) [Mass/Vol]Ordered By: Melvi Qureshi on 43-36-4829Dicotisasmti (U) [Mass/Vol]Urobilinogen [Mass/volume] in Urine by Test stripNoKettering Health Main CampusUrobilinogen (U) [Mass/Vol]See commentNoKettering Health Main CampusComment on above:Unable to obtain accurate result due to color interference.Urology Office/Clinic Noteon 96-85-0922Ffccpqm Office/Clinic NoteUrology Office/Clinic Note Chief Complaint Cysto HPI Staff Cysto History of Present Illness Tests reviewed: MRI and CT hip I have reviewed the previous health record information and history for this patient from Ambar Summers PA-C. I have reviewed and verified the staff HPI to be accurate for this encounter. Review of Systems PHQ Score Initial Depression Screen Score: 0 SCORE ROS - Provider Constitutional: denies weight loss, denies hot flashes. Eyes: denies eye problems. Gastrointestinal: denies nausea, denies vomiting. Cardiovascular: denies chest pain or angina. Integumentary: no dryness Musculoskeletal: denies musculoskeletal symptoms. ENMT: denies otolaryngeal symptoms. Respiratory: no shortness of breath. Heme/Lymph: denies easy bleeding tendency, denies easy bruising tendency. Psychiatric: no confusion, no anxiety. Genitourinary: See HPI. Physical Exam Vitals & Measurements HR: 80(Peripheral) RR: 18 BP: 134/60 HT: 25 in HT: 63 cm WT: 216.053 lb WT: 98 kg BMI: 246.91 General Appearance: alert, no distress, well nourished, well developed male. Procedure Operative Information Anesthesia Type: Local Procedure: Local Cystoscopy Complications: None Surgical risks, benefits, details of the procedure have been explained to the patient. Full informed consent has been obtained. Intraoperative Information Prepped: Patient is brought back to the endoscopy suite. Patient is placed in supine position. Patient prepped in the usual fashion with Hibiclens. 2% Xylocaine Jelly is placed per Urethra. After waiting several minutes, the Cystoscope is introduced. The Urethra is: _Open but mid pale urethral scarring. Iatrogenic hypospadias to the distal penile shaft from catheter tension. The Prostatic Urethra is: _Moderately obstructed bilobar, patent bladder neck The Bladder: Normal, very capacious bladder. No tumors, stones, foreign bodies, or lesions. Trabeculated: Moderate (2) The Ureteral orifices: Show efflux of clear urine Specimens Removed: None Removal: Cystoscope is removed. The patient tolerated it well. New 16Fr catheter, 10 cc in balloon was placed due pt patient unable to void, however only a few drops came out, pt likely leaked/spasmed out the urine Postoperative Information Patient is discharged home. Follow up arranged. Assessment/Plan 83-year-old male patient with hx of HTN, BPH, HFrEF, CKD stage III, A-fib on Eliquis who presents today cysto d/t for urinary retention since 03/2024. Prior Dr Good pt. Pt resides at [facility] for rehab. Pt/s daughter is with him today. 1. Urinary retention (R33.9: Retention of urine, unspecified) Pt underwent lumbar decompression w/ fusion 02/21/24. Discharged to [facility] for rehab. Subsequently admitted to [facility] 03/10/2024-03/15/2024 for LIS secondary to acute urinary retention andacute CHF exacerbation. It appears chou was initially placed on 03/11/24, 900 cc UOP recorded in nursing chart. LIS improved after chou placement. Pt failed TOV prior to discharge and has failed subsequent TOVs at nursing facility. UCX 03/10/2024 - negative for growth Labs 03/15/24 - Cr 2.22, GFR 29 (baseline Cr 1.2) Pt had IO cysto today wo complications. Discussed risks of continued chou due to suspected hypotonic bladder after repeat Urolift. Indwelling urethral vs SPT discussed. SNM was discussed however pt is not a great candidate. In addition, they want to avoid anesthesia. Due to his recent series of surgeries, they opt for continued chou at this time. Follow up monthly for chou exchanges or sooner if needed. Pt understands and agrees with plan. -Cont q4wk chou changes at this office -Pt/daughter can call if they would like to schedule Urolift. The procedural risks, benefits, details, and treatment alternatives have been discussed with the patient. These include bleeding, infection, continued problems urinating, increased frequency with urgency during the healing process, painful urination, need for indwelling catheter after the procedure, and the need for additional procedures in the future, among others. The risk of penile erection problems and urinary leakage is less after this procedure than some others, but could still occur. Full informed consent has been obtained. Will order Local anesthesia. -SPT an option, but typically done with sedation 2. BPH with obstruction/lower urinary tract symptoms (N40.1: Benign prostatic hyperplasia with lower urinary tract symptoms) PSA: 09/12/23 - 2.43. S/p urolift [address] Good 12/15/16. Prostate 73 g. No BPH meds. Pt and daughter wish to avoid anesthesia so urolift was discussed. See #1 3. History of kidney stones (Z87.442: Personal history of urinary calculi) No recent stone imaging. 4. 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 Elevated risk of periop complications 5. Hypospadias (Q54.9: Hypospadias, unspecified) See procedure section. (more content not included)...[facility]ula General HospitalComment on above:Result Comment: Electronically Signed By: Anup TIDWELL, Trisha Degroot\.br\Date and Time Signed: 07/12/24 09:19EDT\.br\Electronically Co-Signed By: Dulce Maria Brown\.br\Date and Time Co-Signed: 07/12/24 08:58 E DT\.br\Electronically Co-Signed By: Dulce Maria Brown P\.br\Date and Time Co- Signed: 07/12/24 09:02 EDT\.br\Electronically Co-Signed By: Dulce Maria Brown P\.br\Date and Time Co-Signed: 07/12/24 09:05 EDTWBC Auto (Bld) [#/Vol]Ordered By: Melvi Qureshi on 67-48-3917HKF (Bld) [#/Vol]Leukocytes [#/volume] in Blood by Automated count4.1-10.5FJoint Township District Memorial HospitalX-ray reportOrdered By: Ortega Groves on 65-85-2502Ibncx reportSalem City HospitalXR chest 1V portableon 96-94-2610AI chest 1V portableNoCritical access hospital Physician GrouppH Test strip (U)Ordered By: Melvi Qureshi on 05-99-0671jS (U)pH of Urine by Test strip5.0-9.0Sal[facility] City HospitalpH (U)See comment5.0-9.0 [facility] HospitalComment on above:Unable to obtain accurate result due to color interference.Provider Letteron 83-97-8083Bpadqzvf Letter Randi Burris MD [address] [facility], [place] [address] Re: Tavo Jadynroel Date of Visit: 07/11/[address] Burris, Thank you for your referral to my office. Attached you will find the most recent office visit note.Please call if you have any questions or concerns. Sincerely, Tye Pompa MD [address] [facility], [address] [place] [address] The following document(s) were included in the letter: July 11, 2024 15:20:30 EDT - (07/11/2024) Telehealth Office Visit NoteNormal [facility] Medical CenterBasophils Auto (Bld) [#/Vol]Ordered By: Sandip Bunting on 15-44-2770Pfjbzlciz (Bld) [#/Vol]Automated basophil count0.0-0.2 [facility] City HospitalBasophils [#/volume] in Blood by Automated countOrdered By: Sandip Bunting on 16-19-4473Aasjorvau (Bld) [#/Vol]0.0 10*3/uL Normal0.0-0.2FJoint Township District Memorial HospitalComment on above:Performed By: #### CBC, ESR, CRP ####[facility] [address] [place] [address] USABasophils/100 WBC Auto (Bld)Ordered By: Sandip Bunting on 07-09-2024 Basophils/100 WBC (Bld)Automated basophil %.[facility] Basophils/100 leukocytes in Blood by Automated countOrdered By: Sandip Bunting on 54-16-3687Ghxxtwypw/100 WBC (Bld)0.1 %Normal.[facility] City HospitalComment on above:Performed By: #### CBC, ESR, CRP ####[facility] [address] [place] [address] USAC reactive protein [Mass/volume] in Serum or PlasmaOrdered By: Sandip Bunting on 07-76-0764XGJ [Mass/Vol]C reactive protein [Mass/volume] in Serum or PlasmaHigh0.0-0.5 [facility] HospitalCRP [Mass/Vol]2.4 mg/dLHigh0.0-0.5FJoint Township District Memorial HospitalC-Reactive Proteinon 82-07-4767Y-Reactive Protein2.4 mg/dLHigh0.0-0.5[facility] Physician GroupComment on above:Result Comment: PERFORMED BY:[address] [place], [place] [phone] MEDICAL DIRECTORJAJA CATES M.D. Performed By: #### CBC, ESR, CRP ####[place] [id number] USAComplete Blood Count Auto Diffon 66-94-7077Fucm Corpuscular HGB Conc32.5 g/mXKxjmxh61.5-35.6[facility] Physician [facility] HospitalComment on above:Performed By: #### CBC, ESR, CRP ####[place] [address] USANRBC%0.0 /100{WBC}Normal0-0.5[facility] Physician [facility] HospitalComment on above:Performed By: #### CBC, ESR, CRP ####[place] [id number] [place] Eosinophils Auto (Bld) [#/Vol]Ordered By: Sandip Bunting on 07-09-2024 Eosinophils (Bld) [#/Vol]Automated eosinophil count0.0-0.45Sal[facility] City HospitalEosinophils [#/volume] in Blood by Automated countOrdered By: Sandip Bunting on 49-21-8652Qwsycyvasht (Bld) [#/Vol]0.0 10*3/uLNormal0.0-0.45 [facility] HospitalComment on above:Performed By: #### CBC, ESR, CRP ####[place] [address] [place] Eosinophils/100 WBC Auto (Bld)Ordered By: Sandip Bunting on 07-09-2024 Eosinophils/100 WBC (Bld)Automated eosinophil %.[facility] City HospitalEosinophils/100 leukocytes in Blood by Automated countOrdered By: Sandip Bunting on 74-40-3922Njvxihqsnqs/100 WBC (Bld)0.4 %Normal.[facility] City HospitalComment on above:Performed By: #### CBC, ESR, CRP ####[address] [address] [facility] CENTERErythrocyte Sedimentation Rateon 11-36-0555HPB (Bld) [Velocity]52 mm/hHigh0-[facility] Physician GroupComment on above:Result Comment: PERFORMED BY:[address] [place], [place] [phone] MEDICAL DIRECTORJAJA CATES M.D.Performed By: #### CBC, ESR, CRP ####[place] [address] [facility] Erythrocyte distribution width Auto (RBC) [Ratio]Ordered By: Sandip Bunting on 46-51-4953Oyicksktasm distribution width (RBC) [Ratio]Erythrocyte distribution width [Ratio] by Automated rztfeDprm65.0-14.[address] [place] [address] Erythrocyte distribution width [Ratio] by Automated countOrdered By: Sandip Bunting on 12-02-9421Fbmhwubfiqy distribution width (RBC) [Ratio]17.6 %High 12.0-14.[address] [place], [place] [address]Comment on above:Performed By: #### CBC, ESR, CRP ####[place] [id number] USAErythrocyte sedimentation rate by Photometric methodOrdered By: Sandip Bunting on 86-00-6730HMQ Photometric method (Bld) [Velocity]Erythrocyte sedimentation rate by Photometric methodCity HospitalUC West Chester HospitalR Photometric method (Bld) [Velocity]52 mm/hrCity Hospital0-19Sal[facility] City HospitalErythrocytes [#/volume] in Blood by Automated countOrdered By: Sandip Bunting on 56-49-5954QCD (Bld) [#/Vol]3.01 10*6/uLLow3.90-5.60[facility] City HospitalComment on above:Performed By: #### CBC, ESR, CRP ####[place] [address] [place] [address] [place] Hematocrit Auto (Bld) [Volume fraction]Ordered By: Sandip Bunting on 07-09-2024 Hematocrit (Bld) [Volume fraction]Hematocrit [Volume Fraction] of Blood by Automated gxeopUkz79.8-50.0Sal[facility] City HospitalHematocrit [Volume Fraction] of Blood by Automated countOrdered By: Sandip Bunting on 07-09-2024 Hematocrit (Bld) [Volume fraction]27.1 %Low38.8-50.0[facility] City HospitalComment on above:Performed By: #### CBC, ESR, CRP ####[place] [address] [place] [id number] USAHemoglobin [Mass/volume] in BloodOrdered By: Sandip Bunting on 59-65-6002O[place]ittie (Bld) [Mass/Vol] Hemoglobin [Mass/volume] in SqxnySwy72.0-17.0[facility] Hemoglobin (Bld) [Mass/Vol]8.8 g/dLLow13.0-17.0[facility] Comment on above:Performed By: #### CBC, ESR, CRP ####[place] [id number] USALeukocytes [#/volume] corrected for nucleated erythrocytes in Blood by Automated counOrdered By: Sandip Bunting on 39-14-3438VYN corrected for nucl RBC Auto (Bld) [#/Vol]Leukocytes [#/volume] corrected for nucleated erythrocytes in Blood by Automated coun4.1-10.5FJoint Township District Memorial HospitalWBC corrected for nucl RBC Auto (Bld) [#/Vol]8.1 10*3/uL 4.1-10.5FJoint Township District Memorial HospitalLeukocytes [#/volume] in Blood by Automated countOrdered By: Sandip Bunting on 64-47-4755HZC (Bld) [#/Vol]8.1 10*3/uLNormal4.1-10.5FJoint Township District Memorial HospitalComment on above:Performed By: #### CBC, ESR, CRP ####[address] [address] USALymphocytes Auto (Bld) [#/Vol]Ordered By: Sandip Bunting on 15-57-0445Mhxpeojvefr (Bld) [#/Vol]Lymphocytes [#/volume] in Blood by Automated count1.00-4.8Sal[facility] City HospitalLymphocytes [#/volume] in Blood by Automated countOrdered By: Sandip Bunting on 14-18-6416Owsjwhxhgcj (Bld) [#/Vol]1.0 10*3/uLNormal1.00-4.8[facility] HospitalComment on above:Performed By: #### CBC, ESR, CRP ####[place] [address] USALymphocytes/100 WBC Auto (Bld)Ordered By: Sandip Bunting on 20-42-7633Dhntasmdfyl/100 WBC (Bld)Lymphocytes/100 leukocytes in Blood by Automated count.[facility] City HospitalLymphocytes/100 leukocytes in Blood by Automated countOrdered By: Sandip Bunting on 07-09-2024 Lymphocytes/100 WBC (Bld)12.5 %Normal.[facility] City HospitalComment on above:Performed By: #### CBC, ESR, CRP ####[place] [id number] [facility] Auto (RBC) [Entitic mass]Ordered By: Sandip Bunting on 84-18-5028ZYT (RBC) [Entitic mass]MCH [Entitic mass] by Automated count27.5-35.2FOhioHealth Doctors Hospital [Entitic mass] by Automated countOrdered By: Sandip Bunting on 92-49-8692CZS (RBC) [Entitic mass] 29.3 gdVnamno35.5-35.2FJoint Township District Memorial HospitalComment on above: Performed By: #### CBC, ESR, CRP ####[place] [address] USAMCHC Auto (RBC) [Mass/Vol]Ordered By: Sandip Bunting on 59-47-4117CAVY (RBC) [Mass/Vol]MCHC [Mass/volume] by Automated count 32.5-35.6FLancaster Municipal HospitalHC (RBC) [Mass/Vol]32.5 g/dL 32.5-35.6FJoint Township District Memorial HospitalMCV Auto (RBC) [Entitic vol]Ordered By: Sandip Bunting on 01-45-4518AHF (RBC) [Entitic vol]MCV [Entitic volume] by Automated count83.-101Wilson HealthV [Entitic volume] by Automated countOrdered By: Sandip Bunting on 58-16-1151MBM (RBC) [Entitic vol] 90.1 gUVfuzmu99.48 [address] StreetComment on above:Performed By: #### CBC, ESR, CRP ####[place] [address] USAMonocytes Auto (Bld) [#/Vol]Ordered By: Sandip Bunting on 92-28-5811Bhwdlsmrj (Bld) [#/Vol]Automated blood monocyte count 0.0-0.8[facility] City HospitalMonocytes [#/volume] in Blood by Automated countOrdered By: Sandip Bunting on 56-12-9277Pjucuslnx (Bld) [#/Vol] 0.6 10*3/uLNormal0.0-0.8[facility] HospitalComment on above: Performed By: #### CBC, ESR, CRP ####[place] [address] USAMonocytes/100 WBC Auto (Bld)Ordered By: Sandip Bunting on 87-26-5816Evoowxavw/100 WBC (Bld)Automated monocyte %.[facility] City HospitalMonocytes/100 leukocytes in Blood by Automated count Ordered By: Sandip Bunting on 96-10-0664Txwveqown/100 WBC (Bld)7.3 %Normal. [facility] HospitalComment on above:Performed By: #### CBC, ESR, CRP ####[place] [address] [place] Neutrophils Auto (Bld) [#/Vol]Ordered By: Sandip Bunting on 07-09-2024 Neutrophils (Bld) [#/Vol]Neutrophils [#/volume] in Blood by Automated count 1.8-7.7FJoint Township District Memorial HospitalNeutrophils [#/volume] in Blood by Automated countOrdered By: Sandip Bunting on 65-28-9949Vonyljrfere (Bld) [#/Vol] 6.4 10*3/uLNormal1.8-7.7FJoint Township District Memorial HospitalComment on above: Performed By: #### CBC, ESR, CRP ####[facility] [address] [place] [address] USANeutrophils/100 WBC Auto (Bld)Ordered By: Sandip Bunting on 98-26-9780Xztkefjgubc/100 WBC (Bld)Automated neutrophil %.[facility] HospitalNeutrophils/100 leukocytes in Blood by Automated count Ordered By: Sandip Bunting on 65-48-5935Hdorphkzjqd/100 WBC (Bld)79.7 %Normal. [facility] HospitalComment on above:Performed By: #### CBC, ESR, CRP ####[facility] [address] [place] [address] Nucleated erythrocytes [Presence] in Blood by Automated countOrdered By: Sandip Bunting on 11-04-6692Dntjnqfuq RBC Auto Ql (Bld)Nucleated erythrocytes [Presence] in Blood by Automated count0-0.5FJoint Township District Memorial Hospital Nucleated RBC Auto Ql (Bld)0.0 /100{WBC}0-0.5FJoint Township District Memorial Hospital Platelet mean volume Auto (Bld) [Entitic vol]Ordered By: Sandip Bunting on 80-91-3385Mnzczzql mean volume (Bld) [Entitic vol]Platelet mean volume [Entitic volume] in Blood by Automated count6.6-10.1FJoint Township District Memorial Hospital Platelet mean volume [Entitic volume] in Blood by Automated countOrdered By: Sandip Bunting on 66-20-8027Hmsmteer mean volume (Bld) [Entitic vol]7.8 fLNormal 6.6-10.1FJoint Township District Memorial HospitalComment on above:Performed By: #### CBC, ESR, CRP ####[facility] [address] [place] [address] USAPlatelets Auto (Bld) [#/Vol]Ordered By: Sandip Bunting on 07-09-2024 Platelets (Bld) [#/Vol]Platelets [#/volume] in Blood by Automated zwijh242-096 [facility] HospitalPlatelets [#/volume] in Blood by Automated countOrdered By: Sandip Bunting on 64-19-7154Apesfincv (Bld) [#/Vol]234 10*3/uL Eannay186-442LlhilcvatSalem City HospitalComment on above:Performed By: #### CBC, ESR, CRP ####[facility] [place] [address] USARBC Auto (Bld) [#/Vol]Ordered By: Sandip Bunting on 10-93-7662CHS (Bld) [#/Vol]Erythrocytes [#/volume] in Blood by Automated countLow3.90-5.60 [facility] HospitalWBC Auto (Bld) [#/Vol]Ordered By: Sandip Bunting on 67-08-6002BOT (Bld) [#/Vol]Leukocytes [#/volume] in Blood by Automated count4.1-10.5FJoint Township District Memorial HospitalBasophils Auto (Bld) [#/Vol]Ordered By: Sandip Bunting on 45-78-0264Pgsmiobel (Bld) [#/Vol]Automated basophil count0.0-0.2FJoint Township District Memorial HospitalBasophils [#/volume] in Blood by Automated countOrdered By: Sandip Bunting on 43-92-6719Pjcyxnswh (Bld) [#/Vol]0.1 10*3/uLNormal0.0-0.2FJoint Township District Memorial HospitalComsurgeons choice medical center on above:Performed By: #### CBC, ESR, CRP ####[facility] [place] [address] USABasophils/100 WBC Auto (Bld)Ordered By: Sandip Bunting on 48-76-2618Vgxzkdfpm/100 WBC (Bld)Automated basophil %.[facility] HospitalBasophils/100 leukocytes in Blood by Automated count Ordered By: Sandip Aguirre on 39-78-5538Hcclkpjbo/100 WBC (Bld)1.3 %Normal. [facility] HospitalComment on above:Performed By: #### CBC, ESR, CRP ####[address] [address] USAC reactive protein [Mass/volume] in Serum or PlasmaOrdered By: Sandip Aguirre on 50-82-1583JOB [Mass/Vol]C reactive protein [Mass/volume] in Serum or PlasmaHigh 0.0-0.5FJoint Township District Memorial HospitalCRP [Mass/Vol]8.0 mg/dLHigh0.0-0.5 [facility] HospitalC-Reactive Proteinon 21-56-9302U-Reactive Protein8.0 mg/dLHigh0.0-0.5[facility] Hospital Physician GroupComment on above:Result Comment: PERFORMED BY:[address] [place], [place] [phone] MEDICAL DIRECTORJAJA CATES M.D. Performed By: #### CBC, ESR, CRP ####[address] [address] USAComplete Blood Count Auto Diffon 71-37-7057Wqvn Corpuscular HGB Conc32.9 g/gVObxwno37.5-35.6[facility] Hospital Physician GroupComment on above:Performed By: #### CBC, ESR, CRP ####[address] [address] USANRBC%0.0 /100{WBC}Normal0-0.5[facility] Hospital Physician GroupComment on above:Performed By: #### CBC, ESR, CRP ####[address] [address] [place] Eosinophils Auto (Bld) [#/Vol]Ordered By: Sandip Aguirre on 07-02-2024 Eosinophils (Bld) [#/Vol]Automated eosinophil count0.0-0.45FirKindred Hospital LimaEosinophils [#/volume] in Blood by Automated countOrdered By: Sandip Bunting on 57-25-9850Uqxvxskunxi (Bld) [#/Vol]0.4 10*3/uLNormal0.0-0.45 [facility] HospitalComment on above:Performed By: #### CBC, ESR, CRP ####[place] [address] [facility] Eosinophils/100 WBC Auto (Bld)Ordered By: Sandip Bunting on 07-02-2024 Eosinophils/100 WBC (Bld)Automated eosinophil %.[facility] HospitalEosinophils/100 leukocytes in Blood by Automated countOrdered By: Sandip Bunting on 20-58-0356Uiqssopizcx/100 WBC (Bld)6.4 %Normal.[facility] HospitalComment on above:Performed By: #### CBC, ESR, CRP ####[place] [address] [facility] CENTERErythrocyte Sedimentation Rateon 78-45-7849JXQ (Bld) [Velocity]95 mm/hHigh0-19[facility] Hospital Physician GroupComment on above:Result Comment: PERFORMED BY:[address] [place], [place] [phone] MEDICAL DIRECTORMOKAIT CATES M.D.Performed By: #### CBC, ESR, CRP ####[place] [address] [facility] Erythrocyte distribution width Auto (RBC) [Ratio]Ordered By: Sandip Bunting on 20-74-4533Rwacstdeidf distribution width (RBC) [Ratio]Erythrocyte distribution width [Ratio] by Automated aojutLccs32.0-14.8[facility] Erythrocyte distribution width [Ratio] by Automated countOrdered By: Sandip Bunting on 10-98-5725Hzocwuvtczw distribution width (RBC) [Ratio]17.1 %High 12.0-14.8[facility] HospitalComment on above:Performed By: #### CBC, ESR, CRP ####[place] [address] USAErythrocyte sedimentation rate by Photometric methodOrdered By: Sandip Aguirre on 52-40-6773VJW Photometric method (Bld) [Velocity]Erythrocyte sedimentation rate by Photometric method93 Cox StreetESR Photometric method (Bld) [Velocity]95 mm/hr93 Cox StreetErythrocytes [#/volume] in Blood by Automated countOrdered By: Sandip Bunting on 30-11-9480RRU (Bld) [#/Vol]2.89 10*6/uLLow3.90-5.60[facility] HospitalComment on above:Performed By: #### CBC, ESR, CRP ####[facility] [address] [place] [address] [place] Hematocrit Auto (Bld) [Volume fraction]Ordered By: Sandip Bunting on 07-02-2024 Hematocrit (Bld) [Volume fraction]Hematocrit [Volume Fraction] of Blood by Automated ksknqIze62.8-50.0[facility] HospitalHematocrit [Volume Fraction] of Blood by Automated countOrdered By: Sandip Aguirre on 07-02-2024 Hematocrit (Bld) [Volume fraction]25.7 %Low38.8-50.0[facility] HospitalComment on above:Performed By: #### CBC, ESR, CRP ####[place] [address] USAHemoglobin [Mass/volume] in BloodOrdered By: Sandip Aguirre on 36-29-7142Umnghadgol (Bld) [Mass/Vol] Hemoglobin [Mass/volume] in AoejuJiv07.0-17.0[facility] Hemoglobin (Bld) [Mass/Vol]8.5 g/dLLow13.0-17.0[facility] Comment on above:Performed By: #### CBC, ESR, CRP ####[place] [address] USALeukocytes [#/volume] corrected for nucleated erythrocytes in Blood by Automated counOrdered By: Sandip Aguirre on 85-51-1788TAZ corrected for nucl RBC Auto (Bld) [#/Vol]Leukocytes [#/volume] corrected for nucleated erythrocytes in Blood by Automated coun4.1-10.5FJoint Township District Memorial HospitalWBC corrected for nucl RBC Auto (Bld) [#/Vol]6.7 10*3/uL 4.1-10.5FJoint Township District Memorial HospitalLeukocytes [#/volume] in Blood by Automated countOrdered By: Sandip Bunting on 50-98-6489XSD (Bld) [#/Vol]6.7 10*3/uLNormal4.1-10.5FJoint Township District Memorial HospitalComment on above:Performed By: #### CBC, ESR, CRP ####[facility] [address] [place] [address] USALymphocytes Auto (Bld) [#/Vol]Ordered By: Sandip Aguirre on 56-21-5834Bujfjtvlphu (Bld) [#/Vol]Lymphocytes [#/volume] in Blood by Automated count1.00-4.8[facility] HospitalLymphocytes [#/volume] in Blood by Automated countOrdered By: Sandip Bunting on 59-76-7275Fjemktyzsvb (Bld) [#/Vol]1.4 10*3/uLNormal1.00-4.8[facility] HospitalComment on above:Performed By: #### CBC, ESR, CRP ####[address] [place] [address] USALymphocytes/100 WBC Auto (Bld)Ordered By: Sandip Aguirre on 95-70-7741Vdusncltuec/100 WBC (Bld)Lymphocytes/100 leukocytes in Blood by Automated count.[facility] HospitalLymphocytes/100 leukocytes in Blood by Automated countOrdered By: Sandip Bunsantiago on 07-02-2024 Lymphocytes/100 WBC (Bld)21.2 %Normal.[facility] HospitalComment on above:Performed By: #### CBC, ESR, CRP ####[place] [place] [address] [facility] Auto (RBC) [Entitic mass]Ordered By: Sandip Bunting on 16-85-2784CLY (RBC) [Entitic mass]MCH [Entitic mass] by Automated count27.5-35.2FOhioHealth Doctors Hospital [Entitic mass] by Automated countOrdered By: Sandip Bunting on 17-44-6814MYI (RBC) [Entitic mass] 29.2 fxFihcri76.5-35.2FJoint Township District Memorial HospitalComment on above: Performed By: #### CBC, ESR, CRP ####[facility] [address] [place] [id number] [facility] CITYHC Auto (RBC) [Mass/Vol]Ordered By: Sandip Bunting on 68-16-4206KMOY (RBC) [Mass/Vol]MCHC [Mass/volume] by Automated count 32.5-35.6FLancaster Municipal HospitalHC (RBC) [Mass/Vol]32.9 g/dL 32.5-35.6FLancaster Municipal HospitalV Auto (RBC) [Entitic vol]Ordered By: Sandip Bunting on 03-50-0649LPX (RBC) [Entitic vol]MCV [Entitic volume] by Automated count83.5-101Wilson HealthV [Entitic volume] by Automated countOrdered By: Sandip Bunting on 84-90-5224HET (RBC) [Entitic vol] 88.9 oRRjyugl50.5-101[facility] HospitalComment on above:Performed By: #### CBC, ESR, CRP ####[place] [id number] USAMonocytes Auto (Bld) [#/Vol]Ordered By: Sandip Bunting on 77-56-9848Dsyccvthl (Bld) [#/Vol]Automated blood monocyte count 0.0-0.8[facility] HospitalMonocytes [#/volume] in Blood by Automated countOrdered By: Sandip Bunting on 19-82-7716Syxxsghxq (Bld) [#/Vol] 0.3 10*3/uLNormal0.0-0.8Salem City HospitalComment on above: Performed By: #### CBC, ESR, CRP ####[facility] [address] [place] [address] USAMonocytes/100 WBC Auto (Bld)Ordered By: Sandip Bunting on 94-74-1586Urqrdohwd/100 WBC (Bld)Automated monocyte %.[facility] HospitalMonocytes/100 leukocytes in Blood by Automated count Ordered By: Sandip Bunting on 36-56-0599Mqprrhiet/100 WBC (Bld)4.8 %Normal. [facility] City HospitalComment on above:Performed By: #### CBC, ESR, CRP ####[facility] [address] [place] [id number] [facility] Neutrophils Auto (Bld) [#/Vol]Ordered By: Sandip Bunting on 07-02-2024 Neutrophils (Bld) [#/Vol]Neutrophils [#/volume] in Blood by Automated count 1.8-7.7FJoint Township District Memorial HospitalNeutrophils [#/volume] in Blood by Automated countOrdered By: Sandip Bunting on 70-88-4270Dmohvzpjzlp (Bld) [#/Vol] 4.4 10*3/uLNormal1.8-7.7FJoint Township District Memorial HospitalComment on above: Performed By: #### CBC, ESR, CRP ####[facility] [id number] USANeutrophils/100 WBC Auto (Bld)Ordered By: Sandip Bunting on 21-45-7901Peiatmiqbaq/100 WBC (Bld)Automated neutrophil %.[facility] HospitalNeutrophils/100 leukocytes in Blood by Automated count Ordered By: Sandip Bunting on 81-96-3827Hrftthktzyo/100 WBC (Bld)66.3 %Normal. [facility] HospitalComment on above:Performed By: #### CBC, ESR, CRP ####[facility] [address] [place], [place] [id number] [facility] Nucleated erythrocytes [Presence] in Blood by Automated countOrdered By: Sandip Bunting on 93-41-3210Neobuxjgw RBC Auto Ql (Bld)Nucleated erythrocytes [Presence] in Blood by Automated count0-0.5FJoint Township District Memorial Hospital Nucleated RBC Auto Ql (Bld)0.0 /100{WBC}0-0.5FJoint Township District Memorial Hospital Platelet mean volume Auto (Bld) [Entitic vol]Ordered By: Sandip Bunting on 52-01-2774Yyrnhuhw mean volume (Bld) [Entitic vol]Platelet mean volume [Entitic volume] in Blood by Automated count6.6-10.1FJoint Township District Memorial Hospital Platelet mean volume [Entitic volume] in Blood by Automated countOrdered By: Sandip Bunting on 17-43-8503Mafgvrvt mean volume (Bld) [Entitic vol]7.7 fLNormal 6.6-10.1FJoint Township District Memorial HospitalComment on above:Performed By: #### CBC, ESR, CRP ####[facility] [address] [place] [address] USAPlatelets Auto (Bld) [#/Vol]Ordered By: Sandip Bunting on 07-02-2024 Platelets (Bld) [#/Vol]Platelets [#/volume] in Blood by Automated yzkqc213-070 [facility] HospitalPlatelets [#/volume] in Blood by Automated countOrdered By: Sandip Bunting on 33-60-3881Vzozyhrud (Bld) [#/Vol]180 10*3/uL Dbkpod352-011EyuorgsutSalem City HospitalComment on above:Performed By: #### CBC, ESR, CRP ####[facility] [address] [place] [address] USARBC Auto (Bld) [#/Vol]Ordered By: Sandip Bunting on 39-80-0738BTE (Bld) [#/Vol]Erythrocytes [#/volume] in Blood by Automated countLow3.90-5.60 [facility] HospitalWBC Auto (Bld) [#/Vol]Ordered By: Sandip Bunting on 98-76-5675OFV (Bld) [#/Vol]Leukocytes [#/volume] in Blood by Automated count4.1-10.5FJoint Township District Memorial HospitalProvider Letteron [phone] Letter Tavo Mcintyre, [address] [facility], [address] [place] [address] Re: Tavo Slaterulett Date of Visit: 06/26/[address] Mcintyre, Thank you for your referral to my office. Attached you will find the most recent office visit note.Please call if you have any questions or concerns. Sincerely, Tye Pompa MD [address] [facility], [address] [place] [address] The following document(s) were included in the letter: June 26, 2024 15:49:54 EDT - (06/26/2024) Telehealth Office Visit NoteNormal [facility] CenterBasophils Auto (Bld) [#/Vol]Ordered By: Sandip Bunting on 85-66-9785Famhwjgxg (Bld) [#/Vol]Automated basophil count0.0-0.2 [facility] HospitalBasophils [#/volume] in Blood by Automated countOrdered By: Sandip Bunting on 25-84-7805Buxonxewr (Bld) [#/Vol]0.1 10*3/uL Normal0.0-0.2FJoint Township District Memorial HospitalComment on above:Performed By: #### ESR, CBC, CRP ####[facility] [address] [place] [address] USABasophils/100 WBC Auto (Bld)Ordered By: Sandip Mirzating on 06-25-2024 Basophils/100 WBC (Bld)Automated basophil %.[facility] Basophils/100 leukocytes in Blood by Automated countOrdered By: Sandip Bunting on 66-15-0356Nrtmkjdwr/100 WBC (Bld)0.9 %Normal.[facility] City HospitalComment on above:Performed By: #### ESR, CBC, CRP ####[facility] [address] [place] [address] USAC reactive protein [Mass/volume] in Serum or PlasmaOrdered By: Sandip Bunting on 65-86-2521EZT [Mass/Vol]C reactive protein [Mass/volume] in Serum or PlasmaHigh0.0-0.5 [facility] HospitalCRP [Mass/Vol]6.5 mg/dLHigh0.0-0.5FJoint Township District Memorial HospitalC-Reactive Proteinon 21-99-8242E-Reactive Protein6.5 mg/dLHigh0.0-0.5[facility] Physician GroupComment on above:Result Comment: PERFORMED BY:[address] [place], [place] [phone] MEDICAL DIRECTORJAAJ CATES M.D. Performed By: #### ESR, CBC, CRP ####[address] [address] USAComplete Blood Count Auto Diffon 62-70-0312Qvim Corpuscular HGB Conc33.3 g/aKVgzmgs20.5-35.6[facility] Physician [facility] HospitalComment on above:Performed By: #### ESR, CBC, CRP ####[address] [address] USANRBC%0.1 /100{WBC}Normal0-0.5[facility] Physician [facility] HospitalComment on above:Performed By: #### ESR, CBC, CRP ####[address] [address] [place] Eosinophils Auto (Bld) [#/Vol]Ordered By: Sandip Bunting on 06-25-2024 Eosinophils (Bld) [#/Vol]Automated eosinophil count0.0-0.45[facility] HospitalEosinophils [#/volume] in Blood by Automated countOrdered By: Sandip Bunting on 10-07-5836Whffxmmcdki (Bld) [#/Vol]0.3 10*3/uLNormal0.0-0.45 [facility] HospitalComment on above:Performed By: #### ESR, CBC, CRP ####[place] [address] [place] Eosinophils/100 WBC Auto (Bld)Ordered By: Sandip Bunting on 06-25-2024 Eosinophils/100 WBC (Bld)Automated eosinophil %.[facility] HospitalEosinophils/100 leukocytes in Blood by Automated countOrdered By: Sandip Bunting on 38-49-1370Wqyfoqwqurf/100 WBC (Bld)4.4 %Normal.[facility] City HospitalComment on above:Performed By: #### ESR, CBC, CRP ####[place] [address] [place] [address] USAErythrocyte Sedimentation Rateon 25-82-1861VNC (Bld) [Velocity]79 mm/hHigh0-19[facility] Physician GroupComment on above:Result Comment: PERFORMED BY:[address] [place], [place] [phone] MEDICAL DIRECTORJAJA CATES M.D.Performed By: #### ESR, CBC, CRP ####[place] [address] [place] [id number] [facility] Erythrocyte distribution width Auto (RBC) [Ratio]Ordered By: Sandip Bunting on 70-90-8996Bzwaxvdfpag distribution width (RBC) [Ratio]Erythrocyte distribution width [Ratio] by Automated qmlsmOoub74.0-14.8[facility] Erythrocyte distribution width [Ratio] by Automated countOrdered By: Sandip Bunting on 62-90-6263Vmxyvnoijdo distribution width (RBC) [Ratio]16.7 %High 12.0-14.[address] [place], [place] [address]Comment on above:Performed By: #### ESR, CBC, CRP ####[place] [id number] USAErythrocyte sedimentation rate by Photometric methodOrdered By: Sandip Bunting on 37-57-4854KXN Photometric method (Bld) [Velocity]Erythrocyte sedimentation rate by Photometric methodHigh0-19[facility] HospitalESR Photometric method (Bld) [Velocity]79 mm/hrCity Hospital0-19Sal[facility] City HospitalErythrocytes [#/volume] in Blood by Automated countOrdered By: Sandip Bunting on 48-56-8672SGB (Bld) [#/Vol]2.81 10*6/uLLow3.90-5.60[facility] City HospitalComment on above:Performed By: #### ESR, CBC, CRP ####[address] [place] [address] [place] Hematocrit Auto (Bld) [Volume fraction]Ordered By: Sandip Bunting on 06-25-2024 Hematocrit (Bld) [Volume fraction]Hematocrit [Volume Fraction] of Blood by Automated fkufjVbf27.8-50.0[facility] HospitalHematocrit [Volume Fraction] of Blood by Automated countOrdered By: Sandip Bunting on 06-25-2024 Hematocrit (Bld) [Volume fraction]24.4 %Low38.8-50.0[facility] City HospitalComment on above:Performed By: #### ESR, CBC, CRP ####[place] [id number] USAHemoglobin [Mass/volume] in BloodOrdered By: Sandip Bunting on 33-04-2690Ovuvhwnjrb (Bld) [Mass/Vol] Hemoglobin [Mass/volume] in KglbuSlg82.0-17.0[facility] Hemoglobin (Bld) [Mass/Vol]8.1 g/dLLow13.0-17.0[facility] Comment on above:Performed By: #### ESR, CBC, CRP ####[place] [address] USALeukocytes [#/volume] corrected for nucleated erythrocytes in Blood by Automated counOrdered By: Sandip Bunting on 20-15-5610XST corrected for nucl RBC Auto (Bld) [#/Vol]Leukocytes [#/volume] corrected for nucleated erythrocytes in Blood by Automated coun4.1-10.5FJoint Township District Memorial HospitalWBC corrected for nucl RBC Auto (Bld) [#/Vol]8.0 10*3/uL 4.1-10.5FJoint Township District Memorial HospitalLeukocytes [#/volume] in Blood by Automated countOrdered By: Sandip Bunting on 84-67-8773EGN (Bld) [#/Vol]8.0 10*3/uLNormal4.1-10.5FJoint Township District Memorial HospitalComment on above:Performed By: #### ESR, CBC, CRP ####[place] [address] USALymphocytes Auto (Bld) [#/Vol]Ordered By: Sandip Bunting on 70-39-5144Ynohtayvmmf (Bld) [#/Vol]Lymphocytes [#/volume] in Blood by Automated count1.00-4.8[facility] HospitalLymphocytes [#/volume] in Blood by Automated countOrdered By: Sandip Bunting on 17-79-9050Ruathjnvwtc (Bld) [#/Vol]1.4 10*3/uLNormal1.00-4.8[facility] City HospitalComment on above:Performed By: #### ESR, CBC, CRP ####[facility] [address] [place], [place] [address] USALymphocytes/100 WBC Auto (Bld)Ordered By: Sandip Bunting on 64-87-1498Evimxsrlgcd/100 WBC (Bld)Lymphocytes/100 leukocytes in Blood by Automated count.[facility] HospitalLymphocytes/100 leukocytes in Blood by Automated countOrdered By: Sandip Bunting on 06-25-2024 Lymphocytes/100 WBC (Bld)17.6 %Normal.[facility] City HospitalComment on above:Performed By: #### ESR, CBC, CRP ####[facility] [address] [place], [place] [address] [facility] Auto (RBC) [Entitic mass]Ordered By: Sandip Bunting on 81-80-3560KWO (RBC) [Entitic mass]MCH [Entitic mass] by Automated count27.5-35.2FOhioHealth Doctors Hospital [Entitic mass] by Automated countOrdered By: Sandip Bunting on 59-84-9323ONZ (RBC) [Entitic mass] 29.0 bbZokgyr43.5-35.2FJoint Township District Memorial HospitalComment on above: Performed By: #### ESR, CBC, CRP ####[place] [address] [facility] Auto (RBC) [Mass/Vol]Ordered By: Sandip Bunting on 09-50-8832PIBM (RBC) [Mass/Vol]MCHC [Mass/volume] by Automated count 32.5-35.6FJoint Township District Memorial HospitalMCHC (RBC) [Mass/Vol]33.3 g/dL 32.5-35.6FJoint Township District Memorial HospitalMCV Auto (RBC) [Entitic vol]Ordered By: Sandip Bunting on 53-99-1893DTA (RBC) [Entitic vol]MCV [Entitic volume] by Automated count83.5-101Sal[facility] HospitalMCV [Entitic volume] by Automated countOrdered By: Sandip Bunting on 54-64-9359LSS (RBC) [Entitic vol] 87.1 dHNtpzna41.5-101[facility] City HospitalComment on above:Performed By: #### ESR, CBC, CRP ####[facility] [address] [place] [id number] USAMonocytes Auto (Bld) [#/Vol]Ordered By: Sandip Bunting on 28-63-7238Xbtalfdfg (Bld) [#/Vol]Automated blood monocyte count 0.0-0.8[facility] HospitalMonocytes [#/volume] in Blood by Automated countOrdered By: Sandip Bunting on 94-47-4789Erdihpyzy (Bld) [#/Vol] 0.6 10*3/uLNormal0.0-0.8[facility] City HospitalComment on above: Performed By: #### ESR, CBC, CRP ####[facility] [address] [place], [place] [address] USAMonocytes/100 WBC Auto (Bld)Ordered By: Sandip Bunting on 94-18-3764Xdbsfrtrp/100 WBC (Bld)Automated monocyte %.[facility] HospitalMonocytes/100 leukocytes in Blood by Automated count Ordered By: Sandip Bunting on 59-61-6172Mdekmywjb/100 WBC (Bld)7.7 %Normal. [facility] City HospitalComment on above:Performed By: #### ESR, CBC, CRP ####[address] [address] [place] Neutrophils Auto (Bld) [#/Vol]Ordered By: Sandip Bunting on 06-25-2024 Neutrophils (Bld) [#/Vol]Neutrophils [#/volume] in Blood by Automated count 1.8-7.7FJoint Township District Memorial HospitalNeutrophils [#/volume] in Blood by Automated countOrdered By: Sandip Bunsantiago on 42-51-6943Qnbncoxeujm (Bld) [#/Vol] 5.5 10*3/uLNormal1.8-7.7FJoint Township District Memorial HospitalComment on above: Performed By: #### ESR, CBC, CRP ####[facility] [address] [place] [address] USANeutrophils/100 WBC Auto (Bld)Ordered By: Sandip Aguirre on 95-06-3457Tduuccjizqd/100 WBC (Bld)Automated neutrophil %.[facility] HospitalNeutrophils/100 leukocytes in Blood by Automated count Ordered By: Sandip Aguirre on 65-65-9628Npmkmgsgaev/100 WBC (Bld)69.4 %Normal. [facility] HospitalComment on above:Performed By: #### ESR, CBC, CRP ####[facility] [address] [place] [address] [facility] Nucleated erythrocytes [Presence] in Blood by Automated countOrdered By: Sandip Aguirre on 53-57-5980Hanxzreek RBC Auto Ql (Bld)Nucleated erythrocytes [Presence] in Blood by Automated count0-0.5FJoint Township District Memorial Hospital Nucleated RBC Auto Ql (Bld)0.1 /100{WBC}0-0.5FJoint Township District Memorial Hospital Platelet mean volume Auto (Bld) [Entitic vol]Ordered By: Sandip Bunting on 07-46-1429Hamnjowm mean volume (Bld) [Entitic vol]Platelet mean volume [Entitic volume] in Blood by Automated count6.6-10.1FJoint Township District Memorial Hospital Platelet mean volume [Entitic volume] in Blood by Automated countOrdered By: Sandip Bunting on 97-11-7684Hrspfmio mean volume (Bld) [Entitic vol]7.5 fLNormal 6.6-10.1FJoint Township District Memorial HospitalComment on above:Performed By: #### ESR, CBC, CRP ####[facility] [place] [address] USAPlatelets Auto (Bld) [#/Vol]Ordered By: Sandip Bunting on 06-25-2024 Platelets (Bld) [#/Vol]Platelets [#/volume] in Blood by Automated jyfuf586-715 [facility] HospitalPlatelets [#/volume] in Blood by Automated countOrdered By: Sandip Bunting on 42-12-2346Nvvwenoyx (Bld) [#/Vol]234 10*3/uL Fzeyih187-011SymdwgvgtSalem City HospitalComment on above:Performed By: #### ESR, CBC, CRP ####[place] [address] [place] [address] USARBC Auto (Bld) [#/Vol]Ordered By: Sandip Bunting on 62-54-6804RQS (Bld) [#/Vol]Erythrocytes [#/volume] in Blood by Automated countLow3.90-5.60 [facility] HospitalWBC Auto (Bld) [#/Vol]Ordered By: Sandip Bunting on 23-33-6686LEH (Bld) [#/Vol]Leukocytes [#/volume] in Blood by Automated count4.1-10.5FJoint Township District Memorial HospitalBaten [facility] hospital Metabolic Panelon 18-65-4804Yngkocbxg GFR25.145 mL/MinNoCritical access hospital Physician GroupComment on above:Performed By: #### CBC, CRP, BMP, ESR ####[place] [address] [place] [id number] USABasophils Auto (Bld) [#/Vol]Ordered By: Sandip Bunting on 07-25-7387Fkfxergvp (Bld) [#/Vol]Automated basophil count 0.0-0.2FJoint Township District Memorial HospitalBasophils [#/volume] in Blood by Automated countOrdered By: Sandip Bunting on 09-70-4053Ygfishplv (Bld) [#/Vol] 0.1 10*3/uLNormal0.0-0.2FJoint Township District Memorial HospitalComment on above: Performed By: #### CBC, CRP, BMP, ESR ####[address] [address] USABasophils/100 WBC Auto (Bld)Ordered By: Sandip Aguirre on 88-50-9506Ljmfrnkte/100 WBC (Bld)Automated basophil %.[facility] HospitalBasophils/100 leukocytes in Blood by Automated count Ordered By: Sandip Aguirre on 49-57-8112Tffkjzaha/100 WBC (Bld)0.6 %Normal. [facility] City HospitalComment on above:Performed By: #### CBC, CRP, BMP, ESR ####[address] [address] USAC reactive protein [Mass/volume] in Serum or PlasmaOrdered By: Sandip Aguirre on 43-87-5732IJS [Mass/Vol]C reactive protein [Mass/volume] in Serum or Plasma High0.0-0.5FJoint Township District Memorial HospitalCRP [Mass/Vol]19.0 mg/dLHigh0.0-0.5 [facility] HospitalC-Reactive Proteinon 68-32-7008U-Reactive Hzeirnk14.0 mg/dLHigh0.0-0.5[facility] Physician GroupComment on above:Result Comment: PERFORMED BY:[address] [address] [address] [place], [place] [phone] MEDICAL DIRECTORJAJA CATES M.D. Performed By: #### CBC, CRP, BMP, ESR ####[address] [address] USACalcium [Mass/volume] in Serum or Plasma Ordered By: Tamar Cunha on 59-57-8681Kneccgz [Mass/Vol]Calcium [Mass/volume] in Serum or Plasma8.6-10.3FJoint Township District Memorial HospitalCalcium [Mass/Vol] 8.6 mg/dLNormal8.6-10.3FJoint Township District Memorial HospitalComment on above: Performed By: #### CBC, CRP, BMP, ESR ####[address] [address] USACarbon dioxide, total [Moles/volume] in Serum or PlasmaOrdered By: Tamar Cunha on 46-84-6816OA3 [Moles/Vol]Carbon dioxide, total [Moles/volume] in Serum or Hjwlfl04.0-31.0[facility] HospitalCO2 [Moles/Vol]22.2 mmol/VUoahvw98.0-31.0[facility] Comment on above:Performed By: #### CBC, CRP, BMP, ESR ####[address] [place] [address] USAChloride [Moles/volume] in Serum or PlasmaOrdered By: Tamar Cunha on 44-28-1561Dzgfugid [Moles/Vol] Chloride [Moles/volume] in Serum or JvkyvxUeq31-378ZhcaourrhSalem City HospitalChloride [Moles/Vol]97 mmol/JZyh21-024SmkrvxmdnSalem City Hospital Comment on above:Performed By: #### CBC, CRP, BMP, ESR ####[address] [address] USAComplete Blood Count Auto Diff on 10-24-2859Dagn Corpuscular HGB Conc32.8 g/iENkvtfv18.5-35.6[facility] Physician GroupComment on above:Performed By: #### CBC, CRP, BMP, ESR ####[address] [address] USANRBC% 0.0 /100{WBC}Normal0-0.5[facility] Physician [facility] HospitalComment on above:Performed By: #### CBC, CRP, BMP, ESR ####[place] [address] USACreatinine [Mass/volume] in Serum or PlasmaOrdered By: Tamar Cunha on 29-47-8528Bwiphnxwpg [Mass/Vol]Creatinine [Mass/volume] in Serum or PlasmaHigh0.70-1.30[facility] HospitalCreatinine [Mass/Vol]2.49 mg/dLHigh0.70-1.30[facility] HospitalComment on above:Performed By: #### CBC, CRP, BMP, ESR ####[address] [place] [address] USAEosinophils Auto (Bld) [#/Vol]Ordered By: Sandip Bunting on 06-39-3278Silgyhssfmj (Bld) [#/Vol]Automated eosinophil count0.0-0.45[facility] HospitalEosinophils [#/volume] in Blood by Automated countOrdered By: Sandip Bunting on 61-64-3227Lmrwetwaltw (Bld) [#/Vol]0.2 10*3/uLNormal0.0-0.45[facility] HospitalComment on above:Performed By: #### CBC, CRP, BMP, ESR ####[address] [address] USAEosinophils/100 WBC Auto (Bld)Ordered By: Sandip Bunting on 27-55-0573Auurfqzfrvi/100 WBC (Bld)Automated eosinophil %. [facility] HospitalEosinophils/100 leukocytes in Blood by Automated countOrdered By: Sandip Bunting on 07-44-2195Svudtqfwury/100 WBC (Bld) 1.9 %Normal.[facility] HospitalComment on above:Performed By: #### CBC, CRP, BMP, ESR ####[address] [address] USAErythrocyte Sedimentation Rateon 48-94-4308BPH (Bld) [Velocity]105 mm/hHigh0-19[facility] Hospital Physician GroupComment on above:Result Comment: PERFORMED BY:[address] [place], [place] [phone] MEDICAL DIRECTORJAJA CATES M.D. Performed By: #### CBC, CRP, BMP, ESR ####[address] [address] USAErythrocyte distribution width Auto (RBC) [Ratio]Ordered By: Sandip Bunting on 60-80-5529Ooogtcdfbjm distribution width (RBC) [Ratio]Erythrocyte distribution width [Ratio] by Automated countHigh 12.0-14.8[facility] HospitalErythrocyte distribution width [Ratio] by Automated countOrdered By: Sandip Aguirre on 93-98-9945Hcztpeebixz distribution width (RBC) [Ratio]16.6 %High12.0-14.8[facility] HospitalComment on above:Performed By: #### CBC, CRP, BMP, ESR ####[facility] [address] [place] [address] USAErythrocyte sedimentation rate by Photometric methodOrdered By: Sandip Aguirre on 06-18-2024 ESR Photometric method (Bld) [Velocity]Erythrocyte sedimentation rate by Photometric methodCity Hospital019[facility] HospitalESR Photometric method (Bld) [Velocity]105 mm/hrCity Hospital019[facility] Erythrocytes [#/volume] in Blood by Automated countOrdered By: Sandip Aguirre on 34-13-8661CDA (Bld) [#/Vol]3.31 10*6/uLLow3.90-5.60[facility] HospitalComment on above:Performed By: #### CBC, CRP, BMP, ESR ####[facility] [address] [place] [address] USAGlucose [Mass/volume] in Serum or PlasmaOrdered By: Tamar Cunha on 72-64-8242Yigvxva [Mass/Vol] Glucose [Mass/volume] in Serum or MhdtdsVtpv16-039VkggflkymSalem City HospitalComment on above:ADA recommended reference rangeRandom Glucose Reference Range is dependent on time and content of last meal. Glucose of more than 200 mg/dL in a nonstressed, ambulatory subject supports the diagnosisof Diabetes Mellitus.Glucose [Mass/Vol]105 mg/lUOghx35-442BlxtpaiewSalem City Hospital Comment on above:ADA recommended reference rangeRandom Glucose Reference Range is dependent on time and content of last meal. Glucose of more than 200 mg/dL in a nonstressed, ambulatory subject supports the diagnosisof Diabetes Mellitus. Result Comment: Random Glucose Reference Range is dependent on time and content of last meal. Glucose of more than 200 mg/dL in a nonstressed, ambulatory subject supports the diagnosis of Diabetes Mellitus. ADA recommended reference rangePerformed By: #### CBC, CRP, BMP, ESR ####[facility] [address] [place] [id number] USAHematocrit Auto (Bld) [Volume fraction]Ordered By: Sandip Bunting on 04-75-5424Mpsyhptdwz (Bld) [Volume fraction]Hematocrit [Volume Fraction] of Blood by Automated opjkaPvv01.8-50.0 [facility] HospitalHematocrit [Volume Fraction] of Blood by Automated countOrdered By: Sandip Bunting on 98-59-2650Ymcvtwimxj (Bld) [Volume fraction]29.4 %Low38.8-50.0[facility] HospitalComment on above: Performed By: #### CBC, CRP, BMP, ESR ####[place] [address] [place] [address] USAHemoglobin [Mass/volume] in BloodOrdered By: Sandip Bunting on 12-63-2257Vmlgaupmmu (Bld) [Mass/Vol]Hemoglobin [Mass/volume] in XufyeMwf64.0-17.0[facility] HospitalHemoglobin (Bld) [Mass/Vol] 9.6 g/dLLow13.0-17.0[facility] HospitalComment on above:Performed By: #### CBC, CRP, BMP, ESR ####[place] [address] USALeukocytes [#/volume] corrected for nucleated erythrocytes in Blood by Automated counOrdered By: Sandip Bunting on 06-18-2024 WBC corrected for nucl RBC Auto (Bld) [#/Vol]Leukocytes [#/volume] corrected for nucleated erythrocytes in Blood by Automated counHigh4.1-10.5FJoint Township District Memorial HospitalWBC corrected for nucl RBC Auto (Bld) [#/Vol]10.9 10*3/uLHigh 4.1-10.5FJoint Township District Memorial HospitalLeukocytes [#/volume] in Blood by Automated countOrdered By: Sandip Bunting on 48-76-9332OXD (Bld) [#/Vol]10.9 10*3/uLHigh4.1-10.5FJoint Township District Memorial HospitalComment on above:Performed By: #### CBC, CRP, BMP, ESR ####[facility] [place] [address] USALymphocytes Auto (Bld) [#/Vol]Ordered By: Sandip Bunting on 69-45-6220Usgsjyhzbef (Bld) [#/Vol]Lymphocytes [#/volume] in Blood by Automated count1.00-4.8[facility] HospitalLymphocytes [#/volume] in Blood by Automated countOrdered By: Sandip Bunting on 63-25-4517Oqhifiiyikr (Bld) [#/Vol]1.2 10*3/uLNormal1.00-4.8[facility] HospitalComment on above:Performed By: #### CBC, CRP, BMP, ESR ####[place] [address] USALymphocytes/100 WBC Auto (Bld)Ordered By: Sandip Bunting on 55-76-5548Hhenrhjaler/100 WBC (Bld)Lymphocytes/100 leukocytes in Blood by Automated count.[facility] Lymphocytes/100 leukocytes in Blood by Automated countOrdered By: Sandip Bunting on 19-54-0642Jlkxdutjhhm/100 WBC (Bld)10.9 %Normal.[facility] HospitalComment on above:Performed By: #### CBC, CRP, BMP, ESR ####[place] [address] [facility] Auto (RBC) [Entitic mass]Ordered By: Sandip Bunting on 73-10-8562PUV (RBC) [Entitic mass] MCH [Entitic mass] by Automated count27.5-35.2FJoint Township District Memorial Hospital MCH [Entitic mass] by Automated countOrdered By: Sandip Bunting on 32-11-3751ECI (RBC) [Entitic mass]29.1 xxCuwsyu70.5-35.2FJoint Township District Memorial Hospital Comment on above:Performed By: #### CBC, CRP, BMP, ESR ####[place] [address] [facility] Auto (RBC) [Mass/Vol] Ordered By: Sandip Bunting on 53-40-3438OPEK (RBC) [Mass/Vol]MCHC [Mass/volume] by Automated count32.5-35.6FLancaster Municipal HospitalHC (RBC) [Mass/Vol]32.8 g/dL32.5-35.6FJoint Township District Memorial HospitalMCV Auto (RBC) [Entitic vol]Ordered By: Sandip Bunting on 50-12-9811XZX (RBC) [Entitic vol]MCV [Entitic volume] by Automated count83.5-101Wilson HealthV [Entitic volume] by Automated countOrdered By: Sandip Bunting on 88-73-9446WGF (RBC) [Entitic vol]88.[address] [place], [place] [address]Comment on above:Performed By: #### CBC, CRP, BMP, ESR ####[facility] [id number] [place] [address] USAMonocytes Auto (Bld) [#/Vol]Ordered By: Sandip Bunting on 67-50-8431Gsmusvuju (Bld) [#/Vol]Automated blood monocyte count0.0-0.8[facility] HospitalMonocytes [#/volume] in Blood by Automated countOrdered By: Sandip Bunting on 96-02-2778Bbcslydlc (Bld) [#/Vol] 0.8 10*3/uLNormal0.0-0.8[facility] City HospitalComment on above: Performed By: #### CBC, CRP, BMP, ESR ####[place] [id number] USAMonocytes/100 WBC Auto (Bld)Ordered By: Sandip Bunting on 24-93-2814Hxhelpvvz/100 WBC (Bld)Automated monocyte %.[facility] HospitalMonocytes/100 leukocytes in Blood by Automated count Ordered By: Sandip Bunting on 93-22-3916Cqvjbrvmn/100 WBC (Bld)7.0 %Normal. [facility] City HospitalComment on above:Performed By: #### CBC, CRP, BMP, ESR ####[place] [id number] USANeutrophils Auto (Bld) [#/Vol]Ordered By: Sandip Bunting on 06-18-2024 Neutrophils (Bld) [#/Vol]Neutrophils [#/volume] in Blood by Automated countHigh 1.8-7.7FJoint Township District Memorial HospitalNeutrophils [#/volume] in Blood by Automated countOrdered By: Sandip Bunting on 60-35-0188Wiowecgswrg (Bld) [#/Vol] 8.7 10*3/uLHigh1.8-7.7FJoint Township District Memorial HospitalComment on above: Performed By: #### CBC, CRP, BMP, ESR ####[facility] [address] [place] [address] USANeutrophils/100 WBC Auto (Bld)Ordered By: Sandip Bunting on 14-80-3316Mdqdphtdrem/100 WBC (Bld)Automated neutrophil %. [facility] HospitalNeutrophils/100 leukocytes in Blood by Automated countOrdered By: Sandip Bunting on 85-36-5701Npfruynvvyj/100 WBC (Bld) 79.6 %Normal.[facility] City HospitalComment on above:Performed By: #### CBC, CRP, BMP, ESR ####[facility] [address] [place] [address] USANo Panel InformationOrdered By: Tamar Cunha on 02-01-4736Xugfrdacs GFR (CKD-EPI)25.145 mL/[facility] Creatinine Clearance (ChemN/[facility]25.145 mL/[facility] HospitalN/[facility] Nucleated erythrocytes [Presence] in Blood by Automated countOrdered By: Sandip Bunting on 23-46-4689Eifatlipo RBC Auto Ql (Bld)Nucleated erythrocytes [Presence] in Blood by Automated count0-0.5FJoint Township District Memorial Hospital Nucleated RBC Auto Ql (Bld)0.0 /100{WBC}0-0.5FJoint Township District Memorial Hospital Platelet mean volume Auto (Bld) [Entitic vol]Ordered By: Sandip Bunting on 58-17-2565Xncuucxg mean volume (Bld) [Entitic vol]Platelet mean volume [Entitic volume] in Blood by Automated count6.6-10.1FJoint Township District Memorial Hospital Platelet mean volume [Entitic volume] in Blood by Automated countOrdered By: Sandip Bunting on 60-22-9726Kvmyfots mean volume (Bld) [Entitic vol]7.8 fLNormal 6.6-10.1FJoint Township District Memorial HospitalComment on above:Performed By: #### CBC, CRP, BMP, ESR ####[facility] [address] [place] [address] USAPlatelets Auto (Bld) [#/Vol]Ordered By: Sandip Bunting on 06-18-2024 Platelets (Bld) [#/Vol]Platelets [#/volume] in Blood by Automated fwotn835-835 [facility] HospitalPlatelets [#/volume] in Blood by Automated countOrdered By: Sandip Bunting on 92-81-6394Hechbjura (Bld) [#/Vol]292 10*3/uL Imkufw485-971PhfxtryhcSalem City HospitalComment on above:Performed By: #### CBC, CRP, BMP, ESR ####[facility] [address] [place] [address] USAPotassium [Moles/volume] in Serum or PlasmaOrdered By: Tamar Cunha on 81-94-6871Fdbuqvraa [Moles/Vol]Potassium [Moles/volume] in Serum or Plasma3.5-5.1FJoint Township District Memorial HospitalPotassium [Moles/Vol] 4.7 mmol/LNormal3.5-5.1FJoint Township District Memorial HospitalComment on above: Performed By: #### CBC, CRP, BMP, ESR ####[facility] [address] [place] [address] USARBC Auto (Bld) [#/Vol]Ordered By: Sandip Bunsantiago on 95-09-9065EWH (Bld) [#/Vol]Erythrocytes [#/volume] in Blood by Automated countLow3.90-5.60Tr[facility] Health System West Campuserum or plasma anion gap determinationOrdered By: Tamar Cunha on 98-37-6806Gsgrm gap [Moles/Vol]Serum or plasma anion gap determinationHigh6.0-15.0[facility] HospitalAnion gap [Moles/Vol]16.5 mmol/LHigh6.0-15.0[facility] HospitalComment on above:Performed By: #### CBC, CRP, BMP, ESR ####[facility] [place] [address] USASodium [Moles/volume] in Serum or PlasmaOrdered By: Tamar Cunha on 07-98-2999Oafceo [Moles/Vol]Sodium [Moles/volume] in Serum or KbrccmJgb738-534BjypwjbvnTrinity Health System West Campusodium [Moles/Vol]131 mmol/PKft440-292QqrfoylmhSalem City HospitalComment on above:Performed By: #### CBC, CRP, BMP, ESR ####[facility] [address] [place] [address] USAUrea nitrogen [Mass/volume] in Serum or PlasmaOrdered By: Tamar Cunha on 71-48-7509Mvci nitrogen [Mass/Vol]Urea nitrogen [Mass/volume] in Serum or PlasmaHigh7-25 [facility] HospitalUrea nitrogen [Mass/Vol]42 mg/dLHigh7-25 [facility] HospitalComment on above:Performed By: #### CBC, CRP, BMP, ESR ####[facility] [address] [place] [address] USAWBC Auto (Bld) [#/Vol]Ordered By: Sandip Bunting on 22-52-6131PDH (Bld) [#/Vol]Leukocytes [#/volume] in Blood by Automated countHigh4.1-10.5FJoint Township District Memorial HospitalBasophils Auto (Bld) [#/Vol]Ordered By: Sandip Bunting on 17-37-9707Wcefgluze (Bld) [#/Vol]Automated basophil count0.0-0.2FJoint Township District Memorial HospitalBasophils/100 WBC Auto (Bld)Ordered By: Sandip Bunting on 81-31-8593Nhaspnxuz/100 WBC (Bld)Automated basophil %.[facility] HospitalComplete Blood Count Auto Diffon 41-66-8203Mlkcuuwut (Bld) [#/Vol] 0.0 10*3/uLNormal0.0-0.2The [facility] Physician GroupComment on above:Result Comment: PERFORMED BY:[address] [place], [place] [phone] MEDICAL DIRECTORJAJA CATES M.D. Performed By: #### CBC ####[place] [address] USABasophils/100 WBC (Bld)0.5 %Normal.The [facility] Hospital Physician GroupComment on above:Performed By: #### CBC ####[place] [address] USAEosinophils (Bld) [#/Vol]0.2 10*3/uLNormal0.0-0.45The [facility] Hospital Physician GroupComment on above:Performed By: #### CBC ####[place] [address] USAEosinophils/100 WBC (Bld)2.2 %Normal.[facility] Hospital Physician GroupComment on above:Performed By: #### CBC ####[place] [address] USAErythrocyte distribution width (RBC) [Ratio]16.6 % High12.0-14.8The [facility] Hospital Physician GroupComment on above:Performed By: #### CBC ####[place] [address] [place] Hematocrit (Bld) [Volume fraction]29.1 %Low38.8-50.0The [facility] Physician GroupComment on above:Performed By: #### CBC ####[place] [address] USAHemoglobin (Bld) [Mass/Vol]9.7 g/dLLow 13.0-17.0The [facility] Physician GroupComment on above:Performed By: #### CBC ####[place] [address] [place] Lymphocytes (Bld) [#/Vol]0.8 10*3/uLLow1.00-4.8[facility] Comment on above:Performed By: #### CBC ####[place] [address] USALymphocytes/100 WBC (Bld)9.5 %Normal.The [facility] Physician GroupComment on above:Performed By: #### CBC ####[address]H (RBC) [Entitic mass]29.8 ayLevjpk50.5-35.2The [facility] Hospital Physician GroupComment on above: Performed By: #### CBC ####[address]V (RBC) [Entitic vol]89.7 oHIoegzz82.5-101The [facility] Hospital Physician GroupComment on above:Performed By: #### CBC ####[place] [address] USAMean Corpuscular HGB Conc33.2 g/xRJmtqep08.5-35.6The [facility] Physician GroupComment on above: Performed By: #### CBC ####[place] [address] USAMonocytes (Bld) [#/Vol]0.6 10*3/uLNormal0.0-0.8The [facility] Physician GroupComment on above:Performed By: #### CBC ####[place] [address] USAMonocytes/100 WBC (Bld)7.4 %Normal.[facility] Physician GroupComment on above:Performed By: #### CBC ####[place] [address] USANeutrophils (Bld) [#/Vol]7.0 10*3/uLNormal1.8-7.7The [facility] Hospital Physician GroupComment on above:Performed By: #### CBC ####[place] [address] USANeutrophils/100 WBC (Bld)80.4 %Normal. [facility] Physician GroupComment on above:Performed By: #### CBC ####[place] [address] USANRBC% 0.0 /100{WBC}Normal0-0.5The [facility] Physician GroupComment on above:Performed By: #### CBC ####[place] [address] USAPlatelet mean volume (Bld) [Entitic vol]8.1 fLNormal6.6-10.1The [facility] Physician GroupComment on above:Performed By: #### CBC ####[place] [address] USAPlatelets (Bld) [#/Vol]202 10*3/sRNozbut305-738Lge Person Memorial Hospital Physician GroupComment on above: Performed By: #### CBC ####[place] [address] USARBC (Bld) [#/Vol]3.24 10*6/uLLow3.90-5.60The [facility] Physician GroupComment on above:Performed By: #### CBC ####[place] [address] USAWBC (Bld) [#/Vol]8.7 10*3/uLNormal4.1-10.5The [facility] Physician GroupComment on above:Performed By: #### CBC ####[place] [address] USAEosinophils Auto (Bld) [#/Vol]Ordered By: Sandip Bunting on 06-13-2024 Eosinophils (Bld) [#/Vol]Automated eosinophil count0.0-0.45[facility] HospitalEosinophils/100 WBC Auto (Bld)Ordered By: Sandip Bunting on 86-33-0397Vzmgiufekza/100 WBC (Bld)Automated eosinophil %.[facility] HospitalErythrocyte distribution width Auto (RBC) [Ratio]Ordered By: Sandip Bunting on 78-61-3182Erfhcohmzcy distribution width (RBC) [Ratio] Erythrocyte distribution width [Ratio] by Automated jbnqhSjxz47.0-14.8[facility] HospitalHematocrit Auto (Bld) [Volume fraction]Ordered By: Sandip Bunting on 33-51-6214Bwmahdhqax (Bld) [Volume fraction]Hematocrit [Volume Fraction] of Blood by Automated ptdacKzk69.8-50.0[facility] HospitalHemoglobin [Mass/volume] in BloodOrdered By: Sandip Bunting on 06-13-2024 Hemoglobin (Bld) [Mass/Vol]Hemoglobin [Mass/volume] in KywefRir69.0-17.0 [facility] HospitalLeukocytes [#/volume] corrected for nucleated erythrocytes in Blood by Automated counOrdered By: Sandip Bunting on 06-13-2024 WBC corrected for nucl RBC Auto (Bld) [#/Vol]Leukocytes [#/volume] corrected for nucleated erythrocytes in Blood by Automated coun4.1-10.5FJoint Township District Memorial HospitalLymphocytes Auto (Bld) [#/Vol]Ordered By: Sandip Bunting on 62-15-4536Acmhxyemioq (Bld) [#/Vol]Lymphocytes [#/volume] in Blood by Automated countLow1.00-4.8[facility] HospitalLymphocytes/100 WBC Auto (Bld) Ordered By: Sandip Bunting on 51-67-0955Rxkinzrghkq/100 WBC (Bld)Lymphocytes/100 leukocytes in Blood by Automated count.[facility] HospitalMCH Auto (RBC) [Entitic mass]Ordered By: Sandip Bunting on 88-83-3804UTW (RBC) [Entitic mass]MCH [Entitic mass] by Automated count27.5-35.2FJoint Township District Memorial HospitalMCHC Auto (RBC) [Mass/Vol]Ordered By: Sandip Bunting on 06-13-2024 MCHC (RBC) [Mass/Vol]MCHC [Mass/volume] by Automated count32.5-35.6FJoint Township District Memorial HospitalMCV Auto (RBC) [Entitic vol]Ordered By: Sandip Bunting on 66-31-9143DYO (RBC) [Entitic vol]MCV [Entitic volume] by Automated count83.5-101 [facility] HospitalMonocytes Auto (Bld) [#/Vol]Ordered By: Sandip Bunting on 61-83-2914Fekjjmbhc (Bld) [#/Vol]Automated blood monocyte count 0.0-0.8[facility] HospitalMonocytes/100 WBC Auto (Bld)Ordered By: Sandip Bunting on 92-23-2644Vdsdpyeur/100 WBC (Bld)Automated monocyte %. [facility] HospitalNeutrophils Auto (Bld) [#/Vol]Ordered By: Sandip Bunting on 22-58-1665Uxtssjforca (Bld) [#/Vol]Neutrophils [#/volume] in Blood by Automated count1.8-7.7FJoint Township District Memorial HospitalNeutrophils/100 WBC Auto (Bld)Ordered By: Sandip Bunting on 75-61-3814Ekaytzicuzm/100 WBC (Bld) Automated neutrophil %.[facility] HospitalNucleated erythrocytes [Presence] in Blood by Automated countOrdered By: Sandip Bunting on 06-13-2024 Nucleated RBC Auto Ql (Bld)Nucleated erythrocytes [Presence] in Blood by Automated count0-0.5FJoint Township District Memorial HospitalPlatelet mean volume Auto (Bld) [Entitic vol]Ordered By: Sandip Bunting on 58-47-4974Lvckdryi mean volume (Bld) [Entitic vol]Platelet mean volume [Entitic volume] in Blood by Automated count6.6-10.1FJoint Township District Memorial HospitalPlatelets Auto (Bld) [#/Vol] Ordered By: Sandip Bunting on 54-14-5440Msyytqwdx (Bld) [#/Vol]Platelets [#/volume] in Blood by Automated qisvh410-941EodnciqylSalem City Hospital RBC Auto (Bld) [#/Vol]Ordered By: Sandip Bunting on 33-09-2962XPD (Bld) [#/Vol] Erythrocytes [#/volume] in Blood by Automated countLow3.90-5.60[facility] HospitalWBC Auto (Bld) [#/Vol]Ordered By: Sandip Bunting on 89-62-3796PHF (Bld) [#/Vol]Leukocytes [#/volume] in Blood by Automated count 4.1-10.5FJoint Township District Memorial HospitalAppearance of UrineOrdered By: Sandip Bunting on 74-99-0642Txuyibjxhm (U)Urine appearanceAbnormalClearSalem City HospitalBacteria [Presence] in Urine by AutomatedOrdered By: Sandip Bunting on 41-12-9622Tjrxkhov Auto Ql (U)Bacteria [Presence] in Urine by AutomatedNone [facility] Barberton CampusBilirubin Test strip Ql (U) Ordered By: Sandip Bunting on 13-67-8144Isfbigyva Ql (U)Bilirubin.total [Presence] in Urine by Test stripNegativeSalem City HospitalColor Auto (U)Ordered By: Sandip Bunting on 37-09-7222Ftcei (U)Color of Urine by Auto YellowSalem City HospitalDipstick and Microscopicon 06-12-2024 Appearance (U)TurbidCritically abnormalClearThe Person Memorial Hospital Physician GroupComment on above:Order Comment: Name Collection Type:: Collection Method Unknown Performed By: #### CUU, ADDONUAPLUS ####[facility] [place] [place] USABacteria,UrineRareNormalNone SeenWinter Haven Hospital Physician GroupComment on above:Order Comment: Name Collection Type:: Collection Method UnknownPerformed By: #### CUU, ADDONUAPLUS ####[facility] [facility] [place], [place] USABilirubin,UrineNegativeNormal NegativeThe Person Memorial Hospital Physician GroupComment on above:Order Comment: Name Collection Type:: Collection Method UnknownPerformed By: #### CUU, ADDONUAPLUS ####[facility] [place], [place] USAColor (U)YellowNormalYellowThe Person Memorial Hospital Physician GroupComment on above:Order Comment: Name Collection Type:: Collection Method UnknownPerformed By: #### CUU, ADDONUAPLUS ####[facility] [facility] [address] USAGlucose Ql (U)NormalNormalNormalThe Person Memorial Hospital Physician GroupComment on above:Order Comment: Name Collection Type:: Collection Method UnknownPerformed By: #### CUU, ADDONUAPLUS ####[address] [id number] USAHyaline Casts,UrineNoneNormal0-8The [facility] Hospital Physician GroupComment on above:Order Comment: Name Collection Type:: Collection Method UnknownResult Comment: PERFORMED BY:[place] [address] [address] [place], [place] [phone] MEDICAL DIRECTORJAJA CATES M.D.Performed By: #### CUU, ADDONUAPLUS ####[address] USAKetones Ql (U)NegativeNormalNegativeWinter Haven Hospital Physician GroupComment on above:Order Comment: Name Collection Type:: Collection Method UnknownPerformed By: #### MANDO, ADDONUAPLUS ####[address] [address] USALeukocyte esterase Test strip Ql (U)4+HighNegativeWinter Haven Hospital Physician GroupComment on above:Order Comment: Name Collection Type:: Collection Method UnknownPerformed By: #### MANDO, ADDONUAPLUS ####[address] [address] USANitrite,UrinePositiveHigh NegativeThe Person Memorial Hospital Physician GroupComment on above:Order Comment: Name Collection Type:: Collection Method UnknownPerformed By: #### CUU, ADDONUAPLUS ####[address] [id number] USAOccult Blood,Urine2+HighNegativeWinter Haven Hospital Physician GroupComment on above:Order Comment: Name Collection Type:: Collection Method UnknownResult Comment: PERFORMED BY:[place] [address] [address] GOLDSTEINDaneAMEENABU[place], [place] [phone] MEDICAL DIRECTORJAJA CATES M.D. Performed By: #### MANDO ADDONUAPLUS ####[address], [place] USApH (U)8.0 [pH]Normal5.0-9.0The [facility] Physician GroupComment on above:Order Comment: Name Collection Type:: Collection Method UnknownPerformed By: #### CUU, ADDONUAPLUS ####[address] Andrewcarepart[facility] rehabilitation hospitalluc[place], [place] USAProtein (U) [Mass/Vol]70 mg/dLHigh NegativeThe Person Memorial Hospital Physician GroupComment on above:Order Comment: Name Collection Type:: Collection Method UnknownPerformed By: #### CUU, ADDONUAPLUS ####[address]lucianaBU[place], [place] [place] RBC,Sffme45-51Uoiu0-8Cvw Person Memorial Hospital Physician GroupComment on above:Order Comment: Name Collection Type:: Collection Method UnknownPerformed By: #### CUU, ADDONUAPLUS ####[address] [address] USASpecificy Delta,Urine1.761Lndkbe6.001-1.030The [facility] Hospital Physician GroupComment on above:Order Comment: Name Collection Type:: Collection Method UnknownPerformed By: #### CUU, ADDONUAPLUS ####[address] Andrewcare[address] rehabilitation hospitall[place], [place] USAUrobilinogen,UrineNormalNormalNormalThe Person Memorial Hospital Physician GroupComment on above:Order Comment: Name Collection Type:: Collection Method UnknownPerformed By: #### CUU, ADDONUAPLUS ####[address] Andrewcare[facility] rehabilitation hospitall[place], [place] USAWBC CLUMP, UrineMany HighNone SeenWinter Haven Hospital Physician GroupComment on above:Order Comment: Name Collection Type:: Collection Method UnknownPerformed By: #### CUU, ADDONUAPLUS ####[address] Andrewcarepart[facility] rehabilitation hospitalluc[place], [place] [place] WBC,UrineInnumerableHigh0-4The [facility] Physician GroupComment on above:Order Comment: Name Collection Type:: Collection Method UnknownPerformed By: #### CUU, ADDONUAPLUS ####[facility] [address] [place] [address] USAEpithelial cells.squamous [#/area] in Urine sediment by Automated count Ordered By: Sandip Bunting on 28-00-3880Wmdfdaakvh cells.squamous Auto (Urine sed) [#/Area]Epithelial cells.squamous [#/area] in Urine sediment by Automated countSalem City HospitalErythrocytes [#/area] in Urine sediment by Automated countOrdered By: Sandip Bunting on 80-74-6273QWA Auto (Urine sed) [#/Area]Erythrocytes [#/area] in Urine sediment by Automated countHigh0-4 [facility] HospitalGlucose [Mass/volume] in Urine by Test strip Ordered By: Sandip Bunting on 25-60-1576Bycmthu Test strip (U) [Mass/Vol]Glucose [Mass/volume] in Urine by Test stripSelect Medical TriHealth Rehabilitation [facility] Hemoglobin Test strip Ql (U)Ordered By: Sandip Bunting on 83-91-2448Ccmqzrawoe Ql (U)Hemoglobin [Presence] in Urine by Test stripChildren's Hospital of ColumbusHyaline casts [#/area] in Urine sediment by Automated count Ordered By: Sandip Bunting on 16-58-6910Szxlgok casts Auto (Urine sed) [#/Area] Hyaline casts [#/area] in Urine sediment by Automated count0-8[facility] City HospitalKetones Test strip Ql (U)Ordered By: Sandip Bunting on 06-12-2024 Ketones Ql (U)Ketones [Presence] in Urine by Test stripNegCleveland Clinic South Pointe HospitalLeukocyte clumps [Presence] in Urine by AutomatedOrdered By: Sandip Bunting on 93-44-1354Tabpwdndo clumps Auto Ql (U)Leukocyte clumps [Presence] in Urine by AutomatedJon Michael Moore Trauma Centere [facility] Leukocyte esterase [Presence] in Urine by Test stripOrdered By: Sandip Bunting on 45-01-3130Kvvikvqgh esterase Test strip Ql (U)Leukocyte esterase [Presence] in Urine by Test stripChildren's Hospital of ColumbusLeukocytes [#/area] in Urine sediment by Automated countOrdered By: Sandip Bunting on 75-00-9540EPX Auto (Urine sed) [#/Area]Leukocytes [#/area] in Urine sediment by Automated countHigh0-4FJoint Township District Memorial HospitalNitrite Test strip Ql (U) Ordered By: Sandip Bunting on 42-50-0047Mytetra Ql (U)Nitrite [Presence] in Urine by Test stripHighNegCleveland Clinic South Pointe HospitalProtein Test strip (U) [Mass/Vol]Ordered By: Sandip Bunting on 34-17-9678Flftmpk (U) [Mass/Vol]Protein [Mass/volume] in Urine by Test stripHighNegHolzer Health Systempecific gravity Test strip (U) [Rel density]Ordered By: Sandip Bunting on 51-12-4165Mjnbawmy gravity (U) [Rel density]Specific gravity of Urine by Test strip1.001-1.030Sal[facility] City HospitalUrine Culture on 00-48-0340Ouvbzmeb identified Cx Nom (U)NormalThe [facility] Physician Group Comment on above:Performed By: #### CUU, ADDEMERITAUAPLUS ####[facility] StreetUrine cultureOrdered By: Sandip Bunting on 34-27-8627Jeleqsrl identified Cx Nom (U)AbnormalSalem City HospitalBacteria identified Cx Nom (U)AbnormalSalem City HospitalUrine cultureAbnoKettering Health Main CampusUrine culture AbnormalSalem City HospitalUrobilinogen Test strip (U) [Mass/Vol] Ordered By: Sandip Bunting on 31-96-6972Ilcaobnxrkcr (U) [Mass/Vol]Urobilinogen [Mass/volume] in Urine by Test stripNoKettering Health Main CampuspH Test strip (U)Ordered By: Sandip Bunting on 07-76-1025sE (U)pH of Urine by Test strip5.0-9.0[facility] HospitalBasophils Auto (Bld) [#/Vol]Ordered By: Sandip Bunting on 49-78-4883Mvgqrisel (Bld) [#/Vol]Automated basophil count 0.0-0.2FJoint Township District Memorial HospitalBasophils/100 WBC Auto (Bld)Ordered By: Sandip Bunting on 90-91-0444Heiildnvk/100 WBC (Bld)Automated basophil %. [facility] HospitalC reactive protein [Mass/volume] in Serum or PlasmaOrdered By: Sandip Bunting on 38-33-8326OZJ [Mass/Vol]C reactive protein [Mass/volume] in Serum or PlasmaHigh0.0-0.5FJoint Township District Memorial HospitalC- Reactive Proteinon 37-78-7051P-Reactive Ijvyjmg85.3 mg/dLHigh0.0-0.5The [facility] Hospital Physician GroupComment on above:Result Comment: PERFORMED BY:[address] [place], [place] [phone] MEDICAL DIRECTORJAJA CATES M.D.Performed By: #### CRP, CBC, ESR ####[address] [address] [facility] Complete Blood Count Auto Diffon 28-52-1056Ammzytonr (Bld) [#/Vol]0.0 10*3/uL Normal0.0-0.2The [facility] Physician [facility] HospitalComment on above:Performed By: #### CRP, CBC, ESR ####[address] [address] USABasophils/100 WBC (Bld)0.3 %Normal.The [facility] Hospital Physician GroupComment on above:Performed By: #### CRP, CBC, ESR ####[address] [address] USAEosinophils (Bld) [#/Vol]0.1 10*3/uL Normal0.0-0.45[facility] Physician [facility] HospitalComment on above:Performed By: #### CRP, CBC, ESR ####[address] [address] USAEosinophils/100 WBC (Bld)0.6 %Normal.[facility] Comment on above:Performed By: #### CRP, CBC, ESR ####[address] [address] USAErythrocyte distribution width (RBC) [Ratio]16.3 %High12.0-14.8The [facility] Hospital Physician GroupComment on above: Performed By: #### CRP, CBC, ESR ####[place] [id number] USAHematocrit (Bld) [Volume fraction]26.9 %Low38.8-50.0 [facility] Hospital Physician GroupComment on above:Performed By: #### CRP, CBC, ESR ####[place] [address] [facility] Hemoglobin (Bld) [Mass/Vol]8.8 g/dLLow13.0-17.0[facility] Comment on above:Performed By: #### CRP, CBC, ESR ####[place] [address] USALymphocytes (Bld) [#/Vol]1.7 10*3/uL Normal1.00-4.8The [facility] Hospital Physician GroupComment on above:Performed By: #### CRP, CBC, ESR ####[place] [address] USALymphocytes/100 WBC (Bld)13.8 %Normal.The [facility] Comment on above:Performed By: #### CRP, CBC, ESR ####[address] [address] USAMCH (RBC) [Entitic mass]29.1 pgNormal 27.5-35.2The [facility] Physician GroupComment on above:Performed By: #### CRP, CBC, ESR ####[address] [address] USAMCV (RBC) [Entitic vol]88.8 fMKowckv38.5-101The [facility] Comment on above:Performed By: #### CRP, CBC, ESR ####[place] [id number] USAMean Corpuscular HGB Conc32.8 g/dL Bsyjyp27.5-35.6The [facility]ician GroupComment on above:Performed By: #### CRP, CBC, ESR ####[place] [address] [place] [address] USAMonocytes (Bld) [#/Vol]1.1 10*3/uLHigh0.0-0.8The [facility]ician GroupComment on above:Performed By: #### CRP, CBC, ESR ####[address] [address] USAMonocytes/100 WBC (Bld)9.1 % Normal.The [facility]ician GroupComment on above:Performed By: #### CRP, CBC, ESR ####[address] [address] USANeutrophils (Bld) [#/Vol]9.1 10*3/uLHigh1.8-7.7The [facility] Comment on above:Performed By: #### CRP, CBC, ESR ####[address] [address] USANeutrophils/100 WBC (Bld)76.2 %Normal .The [facility] GroupComment on above:Performed By: #### CRP, CBC, ESR ####[address] [address] USANRBC% 0.0 /100{WBC}Normal0-0.5The [facility] GroupComment on above:Performed By: #### CRP, CBC, ESR ####[address] [address] USAPlatelet mean volume (Bld) [Entitic vol]8.0 fLNormal 6.6-10.1The [facility] GroupComment on above:Performed By: #### CRP, CBC, ESR ####[address] [address] USAPlatelets (Bld) [#/Vol]214 10*3/dPQqhegc916-985Xpi [facility] Comment on above:Performed By: #### CRP, CBC, ESR ####[address] [address] USARBC (Bld) [#/Vol]3.03 10*6/uLLow 3.90-5.60The [facility] GroupComment on above:Performed By: #### CRP, CBC, ESR ####[place] [place] [address] USAWBC (Bld) [#/Vol]12.0 10*3/uLHigh4.1-10.5The [facility] GroupComment on above:Performed By: #### CRP, CBC, ESR ####[address] [address] USAEosinophils Auto (Bld) [#/Vol]Ordered By: Sandip Bunting on 39-64-8862Krxpvopwusz (Bld) [#/Vol]Automated eosinophil count0.0-0.45[facility] HospitalEosinophils/100 WBC Auto (Bld) Ordered By: Sandip Bunting on 42-46-1452Wzidmiwrkjf/100 WBC (Bld)Automated eosinophil %.[facility] HospitalErythrocyte Sedimentation Rateon 14-53-8834LWM (Bld) [Velocity]97 mm/hHigh0-19The [facility] Comment on above:Result Comment: PERFORMED BY:[address] [place], [place] [phone] MEDICAL DIRECTORJAJA CATES M.D.Performed By: #### CRP, CBC, ESR ####[address] [address] [facility] Erythrocyte distribution width Auto (RBC) [Ratio]Ordered By: Sandip Bunting on 54-11-5871Ybkorkdkcmb distribution width (RBC) [Ratio]Erythrocyte distribution width [Ratio] by Automated vsprxZxyy91.0-14.8[facility] Erythrocyte sedimentation rate by Photometric methodOrdered By: Sandip Bunting on 20-45-7027DTN Photometric method (Bld) [Velocity]Erythrocyte sedimentation rate by Photometric methodHigh0-19[facility] HospitalHematocrit Auto (Bld) [Volume fraction]Ordered By: Sandip Bunting on 89-05-8322Pmqlyjfzue (Bld) [Volume fraction]Hematocrit [Volume Fraction] of Blood by Automated count Low38.8-50.0[facility] HospitalHemoglobin [Mass/volume] in Blood Ordered By: Sandip Bunting on 83-78-7126Tgegrjcgui (Bld) [Mass/Vol]Hemoglobin [Mass/volume] in SsmftQor47.0-17.0[facility] HospitalLeukocytes [#/volume] corrected for nucleated erythrocytes in Blood by Automated coun Ordered By: Sandip Bunting on 70-75-5542GRI corrected for nucl RBC Auto (Bld) [#/Vol]Leukocytes [#/volume] corrected for nucleated erythrocytes in Blood by Automated counHigh4.1-10.5FJoint Township District Memorial HospitalLymphocytes Auto (Bld) [#/Vol]Ordered By: Sandip Bunting on 27-79-0244Iwmefvcisll (Bld) [#/Vol] Lymphocytes [#/volume] in Blood by Automated count1.00-4.8[facility] HospitalLymphocytes/100 WBC Auto (Bld)Ordered By: Sandip Bunting on 43-15-8748Ffdpmswimuk/100 WBC (Bld)Lymphocytes/100 leukocytes in Blood by Automated count.[facility] HospitalMCH Auto (RBC) [Entitic mass] Ordered By: Sandip Bunting on 43-40-0425CGN (RBC) [Entitic mass]MCH [Entitic mass] by Automated count27.5-35.2FJoint Township District Memorial HospitalMCHC Auto (RBC) [Mass/Vol]Ordered By: Sandip Bunting on 79-19-5917LEQL (RBC) [Mass/Vol] MCHC [Mass/volume] by Automated count32.5-35.6FJoint Township District Memorial Hospital MCV Auto (RBC) [Entitic vol]Ordered By: Sandip Bunting on 99-68-0024DZI (RBC) [Entitic vol]MCV [Entitic volume] by Automated count83.5-101[facility] HospitalMonocytes Auto (Bld) [#/Vol]Ordered By: Sandip Bunting on 62-00-6644Jsrvnsxcr (Bld) [#/Vol]Automated blood monocyte countHigh0.0-0.8 [facility] HospitalMonocytes/100 WBC Auto (Bld)Ordered By: Sandip Aguirre on 49-15-8233Qyibnevfq/100 WBC (Bld)Automated monocyte %.[facility] HospitalNeutrophils Auto (Bld) [#/Vol]Ordered By: Sandip Bunting on 90-16-8745Oajddralyvr (Bld) [#/Vol]Neutrophils [#/volume] in Blood by Automated countHigh1.8-7.7FJoint Township District Memorial HospitalNeutrophils/100 WBC Auto (Bld)Ordered By: Sandip Aguirre on 14-23-5179Qnrswzortdz/100 WBC (Bld) Automated neutrophil %.[facility] HospitalNucleated erythrocytes [Presence] in Blood by Automated countOrdered By: Sandip Aguirre on 06-11-2024 Nucleated RBC Auto Ql (Bld)Nucleated erythrocytes [Presence] in Blood by Automated count0-0.5FJoint Township District Memorial HospitalPlatelet mean volume Auto (Bld) [Entitic vol]Ordered By: Sandip Aguirre on 70-16-1238Iadfedmv mean volume (Bld) [Entitic vol]Platelet mean volume [Entitic volume] in Blood by Automated count6.6-10.1FJoint Township District Memorial HospitalPlatelets Auto (Bld) [#/Vol] Ordered By: Sandip Mirzating on 88-74-6829Wilxrfszq (Bld) [#/Vol]Platelets [#/volume] in Blood by Automated -710JvzqyeccdSalem City Hospital RBC Auto (Bld) [#/Vol]Ordered By: Sandip Mirzating on 76-31-7197MCG (Bld) [#/Vol] Erythrocytes [#/volume] in Blood by Automated countLow3.90-5.60[facility] HospitalWBC Auto (Bld) [#/Vol]Ordered By: Sandip Bunting on 78-64-0380ZTI (Bld) [#/Vol]Leukocytes [#/volume] in Blood by Automated countHigh 4.1-10.5FJoint Township District Memorial HospitalInfectious Disease Office/Clinic Noteon 13-39-7487Xpnlblirhm Disease Office/Clinic NoteAssessment/Plan 1. Surgical wound dehiscence Plan: Will repeat labs next week the site itself looks okay. Did encourage patient to consider a follow-up appointment with his neurosurgeon. Will chat more with Dr. Pompa as I am concerned that his inflammation markers continue to rise however patient himself feels okay he is not having any pain no fevers or chills and wound has closed. Will repeat labs in 1 week. RTC pending results. Instructions to patient: If condition worsens in any way or you develop any signs or symptoms of infection please notify theoffice right away. Call for questions. Ordered: Basic Metabolic Profile Chief Complaint 10 day f/u wound dehiscence History of Present Illness 83-year-old male being seen today in follow-up her surgical wound dehiscence. During last visit 05/21/2024 midline was discontinued. We did have lab work completed on 05/08/2024. White blood cells looked okay hemoglobin and platelets okay. Sodium and electrolytes looked okay. Creatinine looked okay. Concern was CRP was 8.81 previous was 3.3. Also his sed rate was elevated to 62from 35. Here today to reevaluate. Since last visit patient has been doing well I talked with primary nurse reports he is actually doing well he is doing his own pumps daily. For his lower extremities. He is tolerating his Chou catheter. He is also using a bone stimulator that he applies to himself. He has had no fevers or chills. This proposal manager writer did talk with patient he is having no pain his bowels are moving okay no incontinence ofstool. No diarrhea. No fevers or chills. He is breathing okay. Primary nurse reports the wound itself is closed. Also reports his daughter canceled his neurosurgery appointment. But he is going to see urology on 07/12. No shortness of breath or cough. No chest pain or heart palpitations. Is not lightheaded or dizzy. He is getting around okay and doing well. History: He had lumbar decompression with fusion February 20. He has had prior ablations prior to the surgery. 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 He states it was a very long name for the andre [1] he had surgery at [facility] in [place].Postoperatively gained a lot of fluid weight. Also has catheter for urinary retention. Has chronic lymphedema uses pumps at home. Admitted to [place] had MRI that showed fluid collection. History ofA-fib. Surgery was not done there due to need for cardiology services. Transferred to [facility] where he connected with cardiology. Actually went to the OR on 04/17/2024 for 8 weeks status post lumbar decompression and noninstrumented fusion with postoperative fluid collection and wound dehisced. Had I&D. Culture positive for Pseudomonas resistant to fluoroquinolones. Sent out on meropenem with midline for 2 weeks. Did have lab work completed on 04/30/2024. White blood cells looked okay hemoglobin okay sed rate and CRP elevated however improved from previous. Should have completed treatment on 05/03/2024. Review of Systems All systems have been reviewed and are negative other than those listed in the HPI Physical Exam Vitals & Measurements T: 36.5 ?C (Temporal Artery) HR: 78 (Peripheral) RR: 18 BP: 140/66 SpO2: 97% HT: 167 cm WT: 85.4 kg (Dosing) WT: 85.4 kg BMI: 30.62 Vitals reviewed and look okay. Patient in no apparent distress. No audible wheezes heard during exam. Somewhat hard of hearing. Upper extremities range of motion intact. Was able to witness patient stand with assist. This proposal manager writer was able to visualize back incision appears to be healed. No redness no drainage noted. Patient answers questions appropriately. Additional Vitals BP Position/Location: Sitting, Left arm Medical Decision Making Chronic conditions NOT treated during this visit that affected my overall medical decision making: [] Treatment plans discussed but not opted for at this time: [] Prescribed medication that requires intensive monitoring for toxicity: [] I have reviewed the patient?s medication list for medication interactions/contraindications and/or for upcoming procedures: [yes] Time Spent with the Patient I have personally spent [] minutes on this date, directly related to today's patient visit, including pre and post visit work, for this date of service. Time listed does not include time spent on separately billable services. Problem List/Past Medical History Ongoing Atrial fibrillation, permanent Wayne's cyst of knee Chronic kidney disease Chronic systolic heart failure Current use of anticoagulants Gout History of gastric ulcer Hypercholesterolemia Hypothyroidism Lymphedema Sleep apnea Historical No qualifying data Procedure/Surgical History History of bilateral knee replacement History of left hip replacement History of lithotripsy Cataract surgery SINUS SURGERY PROCEDURE Rotator cuff surgery Lumbar decompression with fusion (02/21/2024) Lumbar Wound Irri (more content not included)...[facility] CenterProvider Letteron [id number] Letter Re: Tavo Wallis Carson Date of Visit: 06/07/2024 13:30:[address] Mcintyre, In regards to our mutual patient Vaughn Tavo Byrd. Attached you will find the most recent office visit note. Please call if you have any questions or concerns. Sincerely, Tamar Cunha APRN-C [facility] [address], [address] [place] [address] The following document(s) were included in the letter: June 07, 2024 14:05:12 EDT - (06/07/2024) Infectious Disease Office Visit Note [facility] CenterBasic Metabolic Panelon 76-59-9900Icfxs gap [Moles/Vol]14.1 mmol/LNormal6.0-15.0The [facility] GroupComment on above:Order Comment: BMP ADD ON PER *Guerline COTTRELL OPERATOR-FIELD SERVICE SUPERVISOR, Tamar Luis M* AT INFECTIOUS DISEASE AND TRAVEL MEDICINE. FAXED ORDER ASKING TO ADD ON TO BLOOD DRAWN EARLIER TODAY.Performed By: #### CRP, BMP, CBC, ESR ####[facility] [address] [place] [address] USACalcium [Mass/Vol]9.0 mg/dL Normal8.6-10.3The [facility] GroupComment on above:Order Comment: BMP ADD ON PER *Guerline COTTRELL OPERATOR-FIELD SERVICE SUPERVISOR, Tamar Luis M* AT INFECTIOUS DISEASE AND TRAVEL MEDICINE. FAXED ORDER ASKING TO ADD ON TO BLOOD DRAWN EARLIER TODAY.Performed By: #### CRP, BMP, CBC, ESR ####[facility] [address] [place] [address] USAChloride [Moles/Vol]100 mmol/ZUbjhbp03-393Ecz [facility] GroupComment on above:Order Comment: BMP ADD ON PER *Guerline COTTRELL OPERATOR-FIELD SERVICE SUPERVISOR, Tamar Luis M* AT INFECTIOUS DISEASE AND TRAVEL MEDICINE. FAXED ORDER ASKING TO ADD ON TO BLOOD DRAWN EARLIER TODAY.Performed By: #### CRP, BMP, CBC, ESR ####[facility] [place] [address] USACO2 [Moles/Vol]28.8 mmol/SDdumhn36.0-31.0The [facility] GroupComment on above:Order Comment: BMP ADD ON PER *Guerline COTTRELL OPERATOR-FIELD SERVICE SUPERVISOR, Tamar Luis M* AT INFECTIOUS DISEASE AND TRAVEL MEDICINE. FAXED ORDER ASKING TO ADD ON TO BLOOD DRAWN EARLIER TODAY.Performed By: #### CRP, BMP, CBC, ESR ####[place] [place] [address] USACreatinine [Mass/Vol] 1.16 mg/dLNormal0.70-1.30The [facility] GroupComment on above:Order Comment: BMP ADD ON PER *Guerline COTTRELL OPERATOR-FIELD SERVICE SUPERVISOR, Tamar Luis M* AT INFECTIOUS DISEASE AND TRAVEL MEDICINE. FAXED ORDER ASKING TO ADD ON TO BLOOD DRAWN EARLIER TODAY. Performed By: #### CRP, BMP, CBC, ESR ####[place] [address] [place] [address] USAGFR/1.73 sq M.predicted MDRD (S/P/Bld) [Vol rate/Area]mL/min/{1.73_m2}NormalThe [facility] GroupComment on above: Order Comment: BMP ADD ON PER *Guerline COTTRELL OPERATOR-FIELD SERVICE SUPERVISOR, Tamar Luis M* AT INFECTIOUS DISEASE AND TRAVEL MEDICINE. FAXED ORDER ASKING TO ADD ON TO BLOOD DRAWN EARLIER TODAY.Performed By: #### CRP, BMP, CBC, ESR ####[facility] [place] [address] USAGlucose [Mass/Vol]93 mg/sAKntktq91-094 The [facility] GroupComment on above:Order Comment: BMP ADD ON PER *Guerline COTTRELL OPERATOR-FIELD SERVICE SUPERVISOR, Tamar Luis M* AT INFECTIOUS DISEASE AND TRAVEL MEDICINE. FAXED ORDER ASKING TO ADD ON TO BLOOD DRAWN EARLIER TODAY.Result Comment: Random Glucose Reference Range is dependent on time and content of last meal. Glucose of more than 200 mg/dL in a nonstressed, ambulatory subject supports the diagnosis of Diabetes Mellitus. ADA recommended reference rangePerformed By: #### CRP, BMP, CBC, ESR ####[place] [place] [address] USAPotassium [Moles/Vol]3.9 mmol/LNormal3.5-5.1The [facility] GroupComment on above:Order Comment: BMP ADD ON PER *Guerline COTTRELL OPERATOR-FIELD SERVICE SUPERVISOR, Tamar Luis M* AT INFECTIOUS DISEASE AND TRAVEL MEDICINE. FAXED ORDER ASKING TO ADD ON TO BLOOD DRAWN EARLIER TODAY.Performed By: #### CRP, BMP, CBC, ESR ####[address] [address] USASodium [Moles/Vol]139 mmol/LBvutps857-048Cvq [facility] GroupComment on above:Order Comment: BMP ADD ON PER *Guerline COTTRELL OPERATOR-FIELD SERVICE SUPERVISOR, Tamar Luis M* AT INFECTIOUS DISEASE AND TRAVEL MEDICINE. FAXED ORDER ASKING TO ADD ON TO BLOOD DRAWN EARLIER TODAY.Performed By: #### CRP, BMP, CBC, ESR ####[address] [address] USAUrea nitrogen [Mass/Vol]19 mg/dLNormal7-25The [facility] GroupComment on above:Order Comment: BMP ADD ON PER *Guerline COTTRELL OPERATOR-FIELD SERVICE SUPERVISOR, Tamar Luis M* AT INFECTIOUS DISEASE AND TRAVEL MEDICINE. FAXED ORDER ASKING TO ADD ON TO BLOOD DRAWN EARLIER TODAY. Performed By: #### CRP, BMP, CBC, ESR ####[address] [address] USABasophils Auto (Bld) [#/Vol]Ordered By: Sandip Bunsantiago on 23-89-4174Xjabbhkvi (Bld) [#/Vol]Automated basophil count0.0-0.2 [facility] HospitalBasophils/100 WBC Auto (Bld)Ordered By: Sandip Bunting on 46-28-0088Bpueisbfg/100 WBC (Bld)Automated basophil %.[facility] HospitalC reactive protein [Mass/volume] in Serum or Plasma Ordered By: Sandip Aguirre on 24-04-3621GAM [Mass/Vol]C reactive protein [Mass/volume] in Serum or PlasmaHigh0.0-0.5FJoint Township District Memorial HospitalC- Reactive Proteinon 41-91-6039P-Reactive Protein7.7 mg/dLHigh0.0-0.5The [facility] GroupComment on above:Result Comment: PERFORMED BY:[facility] [place], [place] [phone] MEDICAL DIRECTORJAJA CATES M.D.Performed By: #### CRP, BMP, CBC, ESR ####[facility] [address] [place] [address] USAOrder Comment: BMP ADD ON PER *Guerline BELLA, Tamar Asencio* AT INFECTIOUS DISEASE AND TRAVEL MEDICINE. FAXED ORDER ASKING TO ADD ON TO BLOOD DRAWN EARLIER TODAY. Calcium [Mass/volume] in Serum or PlasmaOrdered By: Sandip Bunting on 06-06-2024 Calcium [Mass/Vol]Calcium [Mass/volume] in Serum or Plasma8.6-10.3FJoint Township District Memorial HospitalCarbon dioxide, total [Moles/volume] in Serum or Plasma Ordered By: Sandip Bunting on 65-23-3039MK2 [Moles/Vol]Carbon dioxide, total [Moles/volume] in Serum or Picsrq47.0-31.0[facility] Chloride [Moles/volume] in Serum or PlasmaOrdered By: Sandip Bunting on 76-28-9222Rzcfolam [Moles/Vol]Chloride [Moles/volume] in Serum or Sfhwrq57-203 [facility] HospitalComplete Blood Count Auto Diffon 06-06-2024 Basophils (Bld) [#/Vol]0.1 10*3/uLNormal0.0-0.2The [facility] Comment on above:Performed By: #### CRP, BMP, CBC, ESR ####[facility] [address] [place] [address] USABasophils/100 WBC (Bld)0.6 % Normal.The [facility]ician GroupComment on above:Performed By: #### CRP, BMP, CBC, ESR ####[place] [address] USAEosinophils (Bld) [#/Vol]0.6 10*3/uLHigh0.0-0.45The [facility] GroupComment on above:Performed By: #### CRP, BMP, CBC, ESR ####[place] [address] USAEosinophils/100 WBC (Bld)6.2 %Normal.The [facility] GroupComment on above:Performed By: #### CRP, BMP, CBC, ESR ####[place] [address] USAErythrocyte distribution width (RBC) [Ratio]16.3 % High12.0-14.8The [facility]ician GroupComment on above:Performed By: #### CRP, BMP, CBC, ESR ####[place] [address] USAHematocrit (Bld) [Volume fraction]28.8 %Low38.8-50.0The [facility]ician GroupComment on above:Performed By: #### CRP, BMP, CBC, ESR ####[address] Hemoglobin (Bld) [Mass/Vol]9.6 g/dLLow13.0-17.0The [facility] Comment on above:Performed By: #### CRP, BMP, CBC, ESR ####[place] [address] USALymphocytes (Bld) [#/Vol]1.7 10*3/uLNormal1.00-4.8The [facility] GroupComment on above:Performed By: #### CRP, BMP, CBC, ESR ####[place] [id number] USALymphocytes/100 WBC (Bld)19.1 %Normal.The [facility] GroupComment on above:Performed By: #### CRP, BMP, CBC, ESR ####[place] [id number] [facility] CENTERMCH (RBC) [Entitic mass]30.1 jgNhuvjg72.5-35.2The [facility] GroupComment on above:Performed By: #### CRP, BMP, CBC, ESR ####[address] (RBC) [Entitic vol]90.1 fLNormal 83.5-101The [facility]ician GroupComment on above:Performed By: #### CRP, BMP, CBC, ESR ####[place] [address] USAMean Corpuscular HGB Conc33.4 g/uKKxegrl88.5-35.6The [facility] GroupComment on above:Performed By: #### CRP, BMP, CBC, ESR ####[place] [address] USA Monocytes (Bld) [#/Vol]0.6 10*3/uLNormal0.0-0.8The [facility] Comment on above:Performed By: #### CRP, BMP, CBC, ESR ####[place] [address] USAMonocytes/100 WBC (Bld)6.1 % Normal.The [facility]ician GroupComment on above:Performed By: #### CRP, BMP, CBC, ESR ####[place] [address] USANeutrophils (Bld) [#/Vol]6.2 10*3/uLNormal1.8-7.7The [facility]ician GroupComment on above:Performed By: #### CRP, BMP, CBC, ESR ####[place] [address] [place] Neutrophils/100 WBC (Bld)68.0 %Normal.The [facility] GroupComment on above:Performed By: #### CRP, BMP, CBC, ESR ####[place] [address] USANRBC%0.1 /100{WBC}Normal0-0.5The [facility] GroupComment on above:Performed By: #### CRP, BMP, CBC, ESR ####[address] Platelet mean volume (Bld) [Entitic vol]7.9 fLNormal6.6-10.1The [facility]ician GroupComment on above:Performed By: #### CRP, BMP, CBC, ESR ####[address] Platelets (Bld) [#/Vol]270 10*3/gVYywumv612-871Ktv [facility] Comment on above:Performed By: #### CRP, BMP, CBC, ESR ####[place] [address] USARBC (Bld) [#/Vol]3.19 10*6/uL Low3.90-5.60The [facility] HospitalComment on above:Performed By: #### CRP, BMP, CBC, ESR ####[place] [address] USAWBC (Bld) [#/Vol]9.1 10*3/uLNormal4.1-10.5The [facility] GroupComment on above:Performed By: #### CRP, BMP, CBC, ESR ####[place] [address] USACreatinine [Mass/volume] in Serum or PlasmaOrdered By: Sandip Bunting on 06-06-2024 Creatinine [Mass/Vol]Creatinine [Mass/volume] in Serum or Plasma0.70-1.30 [facility] HospitalEosinophils Auto (Bld) [#/Vol]Ordered By: Sandip Bunting on 75-67-7038Owgohrxgzlv (Bld) [#/Vol]Automated eosinophil count High0.0-0.45[facility] HospitalEosinophils/100 WBC Auto (Bld) Ordered By: Sandip Bunting on 25-18-5431Szkdlvdwcqn/100 WBC (Bld)Automated eosinophil %.[facility] HospitalErythrocyte Sedimentation Rateon 50-88-3905QBL (Bld) [Velocity]72 mm/hHigh0-19The [facility] Comment on above:Result Comment: PERFORMED BY:[facility] [place], [place] [phone] MEDICAL DIRECTORMOKAIT CAETS M.D.Performed By: #### CRP, BMP, CBC, ESR ####[facility] [place] [address] [facility] Erythrocyte distribution width Auto (RBC) [Ratio]Ordered By: Sandip Bunting on 49-27-6068Sjzqscpofob distribution width (RBC) [Ratio]Erythrocyte distribution width [Ratio] by Automated rrreeYfdv22.0-14.8[facility] Erythrocyte sedimentation rate by Photometric methodOrdered By: Sandip Bunting on 37-60-4641VIK Photometric method (Bld) [Velocity]Erythrocyte sedimentation rate by Photometric methodHigh0-19[facility] HospitalGlucose [Mass/volume] in Serum or PlasmaOrdered By: Sandip Bunting on 01-74-9056Tjqplgs [Mass/Vol]Glucose [Mass/volume] in Serum or Ybljrh47-461PsggmpzjcSalem City HospitalComment on above:ADA recommended reference rangeRandom Glucose Reference Range is dependent on time and content of last meal. Glucose of more than 200 mg/dL in a nonstressed, ambulatory subject supports the diagnosisof Diabetes Mellitus.Hematocrit Auto (Bld) [Volume fraction]Ordered By: Sandip Bunting on 77-46-5393Qllrvvewyy (Bld) [Volume fraction]Hematocrit [Volume Fraction] of Blood by Automated hpmxhTun30.8-50.0[facility] HospitalHemoglobin [Mass/volume] in BloodOrdered By: Sandip Bunting on 06-06-2024 Hemoglobin (Bld) [Mass/Vol]Hemoglobin [Mass/volume] in SpacoNyp30.0-17.0 [facility] HospitalLeukocytes [#/volume] corrected for nucleated erythrocytes in Blood by Automated counOrdered By: Sandip Bunting on 06-06-2024 WBC corrected for nucl RBC Auto (Bld) [#/Vol]Leukocytes [#/volume] corrected for nucleated erythrocytes in Blood by Automated coun4.1-10.5FJoint Township District Memorial HospitalLymphocytes Auto (Bld) [#/Vol]Ordered By: Sandip Bunting on 90-34-9187Rntqqahnysj (Bld) [#/Vol]Lymphocytes [#/volume] in Blood by Automated count1.00-4.8[facility] HospitalLymphocytes/100 WBC Auto (Bld) Ordered By: Sandip Bunting on 42-31-1470Evljswyhgol/100 WBC (Bld)Lymphocytes/100 leukocytes in Blood by Automated count.[facility] HospitalMCH Auto (RBC) [Entitic mass]Ordered By: Sandip Bunting on 59-12-5124SIL (RBC) [Entitic mass]MCH [Entitic mass] by Automated count27.5-35.2FJoint Township District Memorial HospitalMCHC Auto (RBC) [Mass/Vol]Ordered By: Sandip Bunting on 06-06-2024 MCHC (RBC) [Mass/Vol]MCHC [Mass/volume] by Automated count32.5-35.6FJoint Township District Memorial HospitalMCV Auto (RBC) [Entitic vol]Ordered By: Sandip Bunting on 12-08-1192EOE (RBC) [Entitic vol]MCV [Entitic volume] by Automated count83.5-101 [facility] HospitalMonocytes Auto (Bld) [#/Vol]Ordered By: Sandip Bunting on 11-49-2262Qiysqkyta (Bld) [#/Vol]Automated blood monocyte count 0.0-0.8[facility] HospitalMonocytes/100 WBC Auto (Bld)Ordered By: Sandip Bunting on 37-00-3214Cdrlbxjsh/100 WBC (Bld)Automated monocyte %. [facility] HospitalNeutrophils Auto (Bld) [#/Vol]Ordered By: Sandip Bunting on 74-42-1170Vikxyqkxmmd (Bld) [#/Vol]Neutrophils [#/volume] in Blood by Automated count1.8-7.7FJoint Township District Memorial HospitalNeutrophils/100 WBC Auto (Bld)Ordered By: Sandip Bunting on 70-79-0526Iduoeopexnq/100 WBC (Bld) Automated neutrophil %.[facility] HospitalNo Panel Information Ordered By: Sandip Bunting on 25-95-2726Ljncuyhve GFR (CKD-EPI)> 60.0 mL/Min [facility] HospitalPharmacy Creatinine Clearance (ChemN/AFJoint Township District Memorial Hospital> 60.0 mL/MinSalem City HospitalN/A [facility] HospitalNucleated erythrocytes [Presence] in Blood by Automated countOrdered By: Sandip Bunting on 68-99-3112Slagkbaon RBC Auto Ql (Bld)Nucleated erythrocytes [Presence] in Blood by Automated count0-0.5FJoint Township District Memorial HospitalPlatelet mean volume Auto (Bld) [Entitic vol]Ordered By: Sandip Bunting on 12-89-2684Uhqkhfem mean volume (Bld) [Entitic vol]Platelet mean volume [Entitic volume] in Blood by Automated count6.6-10.1FJoint Township District Memorial HospitalPlatelets Auto (Bld) [#/Vol]Ordered By: Sandip Bunting on 95-35-5091Idcqimxhc (Bld) [#/Vol]Platelets [#/volume] in Blood by Automated wyjxq114-833LszvhjkkkSalem City HospitalPotassium [Moles/volume] in Serum or PlasmaOrdered By: Sandip Bunting on 06-31-8526Stsnfdyyx [Moles/Vol]Potassium [Moles/volume] in Serum or Plasma3.5-5.1FJoint Township District Memorial HospitalRBC Auto (Bld) [#/Vol]Ordered By: Sandip Bunting on 41-22-3133JOQ (Bld) [#/Vol] Erythrocytes [#/volume] in Blood by Automated countLow3.90-5.60[facility] West Campuserum or plasma anion gap determinationOrdered By: Sandip Bunting on 63-18-6936Yxsbm gap [Moles/Vol]Serum or plasma anion gap determination6.0-15.0[facility] West Campusodium [Moles/volume] in Serum or PlasmaOrdered By: Sandip Bunting on 33-50-2038Sawbsj [Moles/Vol]Sodium [Moles/volume] in Serum or Shbeuh867-718EmwowygsbSalem City HospitalUrea nitrogen [Mass/volume] in Serum or PlasmaOrdered By: Sandip Bunting on 97-33-2287Zlff nitrogen [Mass/Vol]Urea nitrogen [Mass/volume] in Serum or Plasma 09-28[facility] HospitalWBC Auto (Bld) [#/Vol]Ordered By: Sandip Aguirre on 26-29-4702TGV (Bld) [#/Vol]Leukocytes [#/volume] in Blood by Automated count4.1-10.5FJoint Township District Memorial HospitalUrology Office/Clinic Noteon 96-41-2535Gvhtjzp Office/Clinic NoteUrology Office/Clinic Note Chief Complaint New patient urinary retention HPI Staff 83 year old male new patient referred for postoperative urinary retention. Cath was placed March.Before the cath was bloating up real bad because of not urinating. Denies hematuria, denies dysuria. Denies abdominal/flank pain History of Present Illness I have reviewed and verified the staff HPI to be accurate for this encounter. Review of Systems PHQ Score Initial Depression Screen Score: 0 SCORE no fever, chills, malaise, myalgia. no abdominal pain, nausea, vomiting. Physical Exam Vitals & Measurements T: 36.3 ???C(Temporal Artery) HR: 82(Peripheral) RR: 16 BP: 115/63 HT: 160 cm HT: 63 in WT: 98 kg WT: 216.053 lb BMI: 38.28 General: Well developed, well nourished, in no acute distress. Genitourinary: Flank Pain: none. Bladder: nonpalpable. Chou cath present w/ clear/yellow urine Assessment/Plan 83-year-old male patient with hx of HTN, BPH, HFrEF, CKD stage III, A-fib on Eliquis who presents today for urinary retention Prior RWR pt Patient accompanied today with his daughter Abigail ElisePOA) 1. Urinary retention (R33.9: Retention of urine, unspecified) Patient has hx of BPH s/p Urolift (4 implants) by RWR on 12/15/2016 He underwent lumbar decompression w/ fusion 02/21/24. Discharged to [facility] for rehab. Subsequently admitted to [facility] 03/10/2024-03/15/2024 for LIS secondary to acute urinary retention andacute CHF exacerbation. It appears chou was initially placed on 03/11/24, 900 cc UOP recorded in nursing chart. LIS improved after chou placement. Pt failed TOV prior to discharge and has failed subsequent TOVs at nursing facility. UCX 03/10/2024 - negative for growth Labs 03/15/24 - Cr 2.22, GFR 29 (baseline Cr 1.2) No UA today, patient has indwelling cath Patient resides at [facility] for rehab. Reports his cath has been changed once since initial placement in March but unsure when last exchanged. Discussed doing a fill & pull IO today, but patient declines considering he has failed prior TOV. Discussed completing cystoscopy to evaluate bladder outlet obstruction and bladder health. He is agreeable to cystoscopy and would like to keep the catheter until then. He denies any issues with catheter. Denies UTIs or gross hematuria. We did discuss prostate procedures including repeating UroLift and TURP in office today. Daughter and pt would like to avoid any procedures requiring general anesthesia, which is reasonable considering patient is at increased risk of perioperative complications. Lumbar spine MRI 04/03/2024 at [facility] for prostate sizing -Schedule cystoscopy. The risks and benefits for cystoscopy have been discussed. The risks include bleeding, infection, and irritation of the bladder and urinary channel, among others. The patient, after being informed of procedural details and after questions have been answered, wishes to proceed.Full informed consent has been obtained. Will order Local anesthesia. -Written orders provided today for SNF to change cath today (06/01/24) and cont q4week cath changes -Increase fluid intake -Follow up pending cysto, call sooner if needed 2. BPH with obstruction/lower urinary tract symptoms (N40.1: Benign prostatic hyperplasia with lower urinary tract symptoms) 12/15/2016 - s/p Urolift 4 implants by RWR IPSS not complete No PVR or UA - pt has chou cath Prior to chou placement, patient states he had difficulty with voiding. Reports he would dribble alot. Not taking any BPH medications. -See #1 3. Anticoagulated (Z79.01: MCFP (current) use of anticoagulants) On Eliquis for Afib 4. History of kidney stones (Z87.442: Personal history of urinary calculi) 10/24/2009 - s/p L ESWL by RWR Denies recent stone events Follow-up With When Contact Information Anup TIDWELL, Trisha Degroot, URL, URO Additional Instructions: F/U pending cystoscopy Patient Education Acute Urinary Retention, Male Problem List/Past Medical History Ongoing Afib LIS (acute kidney injury) Anticoagulated Arthritis BPH with elevated PSA BPH with lower urinary tract symptoms without urinary obstruction BPH with obstruction/lower urinary tract symptoms Ex-smoker Fusion of spine, sacral and sacrococcygeal region Heart failure History of kidney stones Hyperlipidemia Hypertensive heart disease Metabolic encephalopathy Retention of urine Spinal stenosis of lumbar region Stage 3 chronic kidney disease Urinary retention Varicose veins of lower extremity Vascular insufficiency Zenker's diverticulum Historical Acid reflux Benign prostatic hyperplasia Chronic atrial fibrillation Gout Gout H/O: arthritis Heart failure HTN - Hypertension Hypercholesterolemia Hyperlipidemia Hypothyroidism Peripheral edema poor circulation in legs Sleep apnea Procedure/Surgical History Arthrodesis, posterior or posterolateral technique, single interspace; lumbar (wi (more content notincluded)...[facility] HospitalComment on above:Result Comment: Electronically Signed By: Melina LECHUGA, Ambar\.br\Date and Time Signed: 06/02/24 14:35 EDTB-Type Natriuretic Peptideon 05-28-2024 Natriuretic peptide B (Bld) [Mass/Vol]407.0 pg/mLHigh5-100The [facility] Physician GroupComment on above:Result Comment: PERFORMED BY:[id number] [place], [place] [phone] MEDICAL DIRECTORJAJA CATES M.D.Performed By: #### BNP, ESR, CBC, CRP ####[facility] [address] [place] [address] [facility] Basophils Auto (Bld) [#/Vol]Ordered By: Sandip Bunting on 30-48-4741Rrsbwfzam (Bld) [#/Vol]Automated basophil count0.0-0.2FJoint Township District Memorial Hospital Basophils/100 WBC Auto (Bld)Ordered By: Sandip Bunting on 05-28-2024 Basophils/100 WBC (Bld)Automated basophil %.[facility] HospitalC reactive protein [Mass/volume] in Serum or PlasmaOrdered By: Sandip Bunting on 63-04-9488PQO [Mass/Vol]C reactive protein [Mass/volume] in Serum or PlasmaHigh 0.0-0.5FJoint Township District Memorial HospitalC-Reactive Proteinon 68-16-0239Y- Reactive Protein8.8 mg/dLHigh0.0-0.5The [facility] Physician GroupComment on above:Result Comment: PERFORMED BY:[address] [place], [place] [phone] MEDICAL DIRECTORJAJA WHITE M.D.Performed By: #### BNP, ESR, CBC, CRP ####[place] [id number] USAComplete Blood Count Auto Diff on 71-86-7971Qyyknuzuu (Bld) [#/Vol]0.1 10*3/uLNormal0.0-0.2The [facility] Physician GroupComment on above:Performed By: #### BNP, ESR, CBC, CRP ####[place] [id number] [place] Basophils/100 WBC (Bld)1.0 %Normal.[facility] Physician GroupComment on above:Performed By: #### BNP, ESR, CBC, CRP ####[place] [id number] USAEosinophils (Bld) [#/Vol]0.5 10*3/uL High0.0-0.45The [facility] Physician GroupComment on above:Performed By: #### BNP, ESR, CBC, CRP ####[place] [id number] USAEosinophils/100 WBC (Bld)8.2 %Normal.[facility] Comment on above:Performed By: #### BNP, ESR, CBC, CRP ####[place] [id number] USAErythrocyte distribution width (RBC) [Ratio]16.7 %High12.0-14.8The [facility] Hospital Physician GroupComment on above: Performed By: #### BNP, ESR, CBC, CRP ####[place] [id number] USAHematocrit (Bld) [Volume fraction]25.2 %Low 38.8-50.0[facility] Physician GroupComment on above:Performed By: #### BNP, ESR, CBC, CRP ####[place] [address] USAHemoglobin (Bld) [Mass/Vol]8.6 g/dLLow13.0-17.0[facility] Physician GroupComment on above:Performed By: #### BNP, ESR, CBC, CRP ####[place] [id number] USALymphocytes (Bld) [#/Vol]1.5 10*3/uLNormal1.00-4.8[facility] Physician GroupComment on above: Performed By: #### BNP, ESR, CBC, CRP ####[place] [id number] USALymphocytes/100 WBC (Bld)26.1 %Normal.[facility] Physician GroupComment on above:Performed By: #### BNP, ESR, CBC, CRP ####[place] [id number] [facility] CENTERMCH (RBC) [Entitic mass]30.7 ujOmwxxl32.5-35.2The [facility] Physician GroupComment on above:Performed By: #### BNP, ESR, CBC, CRP ####[place] [address] [facility] CENTERMCV (RBC) [Entitic vol]90.1 fLNormal 83.5-101The [facility] Physician GroupComment on above:Performed By: #### BNP, ESR, CBC, CRP ####[place] [address] USAMean Corpuscular HGB Conc34.1 g/kTXsthuu92.5-35.6The [facility] Physician GroupComment on above:Performed By: #### BNP, ESR, CBC, CRP ####[place] [id number] [place] Monocytes (Bld) [#/Vol]0.4 10*3/uLNormal0.0-0.8[facility] Comment on above:Performed By: #### BNP, ESR, CBC, CRP ####[place] [address] USAMonocytes/100 WBC (Bld)6.5 % Normal.[facility] Physician GroupComment on above:Performed By: #### BNP, ESR, CBC, CRP ####[place] [address] USANeutrophils (Bld) [#/Vol]3.3 10*3/uLNormal1.8-7.7The [facility] Physician GroupComment on above:Performed By: #### BNP, ESR, CBC, CRP ####[address] Neutrophils/100 WBC (Bld)58.2 %Normal.[facility] Physician GroupComment on above:Performed By: #### BNP, ESR, CBC, CRP ####[place] [address] USANRBC%0.1 /100{WBC}Normal0-0.5[facility] Physician GroupComment on above:Performed By: #### BNP, ESR, CBC, CRP ####[address] Platelet mean volume (Bld) [Entitic vol]7.9 fLNormal6.6-10.1The [facility] Physician GroupComment on above:Performed By: #### BNP, ESR, CBC, CRP ####[address] Platelets (Bld) [#/Vol]186 10*3/hPGmmxcx487-242Ajq [facility] Comment on above:Performed By: #### BNP, ESR, CBC, CRP ####[place] [address] USARBC (Bld) [#/Vol]2.80 10*6/uL Low3.90-5.60[facility] Physician GroupComment on above:Performed By: #### BNP, ESR, CBC, CRP ####[place] [address] [place] [address] USAWBC (Bld) [#/Vol]5.7 10*3/uLNormal4.1-10.5The [facility] Physician GroupComment on above:Performed By: #### BNP, ESR, CBC, CRP ####[address] [address] USAEosinophils Auto (Bld) [#/Vol]Ordered By: Sandip Bunting on 02-17-8753Hussvzmzlyp (Bld) [#/Vol] Automated eosinophil countHigh0.0-0.45[facility] Eosinophils/100 WBC Auto (Bld)Ordered By: Sandip Bunting on 05-28-2024 Eosinophils/100 WBC (Bld)Automated eosinophil %.[facility] HospitalErythrocyte Sedimentation Rateon 46-94-2259EUS (Bld) [Velocity]62 mm/hHigh 0-19[facility] Physician GroupComment on above:Result Comment: PERFORMED BY:[address] [place], [place] [phone] MEDICAL DIRECTORJAJA CATES M.D.Performed By: #### BNP, ESR, CBC, CRP ####[address] [address] USAErythrocyte distribution width Auto (RBC) [Ratio]Ordered By: Sandip Bunting on 48-80-1302Yebermzziib distribution width (RBC) [Ratio]Erythrocyte distribution width [Ratio] by Automated gzfagEvsy45.0-14.8[facility] HospitalErythrocyte sedimentation rate by Photometric methodOrdered By: Sandip Bunting on 74-93-1250OUY Photometric method (Bld) [Velocity]Erythrocyte sedimentation rate by Photometric methodHigh0-19[facility] HospitalHematocrit Auto (Bld) [Volume fraction]Ordered By: Sandip Bunting on 66-12-9463Glomagljkp (Bld) [Volume fraction]Hematocrit [Volume Fraction] of Blood by Automated zesghMem04.8-50.0[facility] HospitalHemoglobin [Mass/volume] in BloodOrdered By: Sandip Bunting on 83-29-1208Bwpyazbqas (Bld) [Mass/Vol]Hemoglobin [Mass/volume] in JroncNkw32.0-17.0[facility] HospitalLeukocytes [#/volume] corrected for nucleated erythrocytes in Blood by Automated counOrdered By: Sandip Bunting on 67-50-0696TSN corrected for nucl RBC Auto (Bld) [#/Vol]Leukocytes [#/volume] corrected for nucleated erythrocytes in Blood by Automated coun4.1-10.5FJoint Township District Memorial Hospital Lymphocytes Auto (Bld) [#/Vol]Ordered By: Sandip Bunting on 05-28-2024 Lymphocytes (Bld) [#/Vol]Lymphocytes [#/volume] in Blood by Automated count 1.00-4.8[facility] HospitalLymphocytes/100 WBC Auto (Bld)Ordered By: Sandip Bunting on 26-34-2960Umgugprildv/100 WBC (Bld)Lymphocytes/100 leukocytes in Blood by Automated count.[facility] HospitalMCH Auto (RBC) [Entitic mass]Ordered By: Sandip Bunting on 72-37-4923LIG (RBC) [Entitic mass]MCH [Entitic mass] by Automated count27.5-35.2FJoint Township District Memorial HospitalMCHC Auto (RBC) [Mass/Vol]Ordered By: Sandip Bunting on 50-44-7489RZIN (RBC) [Mass/Vol]MCHC [Mass/volume] by Automated count32.5-35.6FJoint Township District Memorial HospitalMCV Auto (RBC) [Entitic vol]Ordered By: Sandip Bunting on 27-63-4507PFN (RBC) [Entitic vol]MCV [Entitic volume] by Automated count83.5-101 [facility] HospitalMonocytes Auto (Bld) [#/Vol]Ordered By: Sandip Bunting on 84-72-3019Mkzlbtsjc (Bld) [#/Vol]Automated blood monocyte count 0.0-0.8[facility] HospitalMonocytes/100 WBC Auto (Bld)Ordered By: Sandip Bunting on 52-09-1576Ojeqachhg/100 WBC (Bld)Automated monocyte %. [facility] HospitalNatriuretic peptide B [Mass/Vol]Ordered By: Sandip Bunting on 42-10-5467Ixxindpympk peptide B (Bld) [Mass/Vol]BNP ser/plas High5-100[facility] HospitalNeutrophils Auto (Bld) [#/Vol]Ordered By: Sandip Bunting on 49-08-0095Xkspylefjla (Bld) [#/Vol]Neutrophils [#/volume] in Blood by Automated count1.8-7.7FJoint Township District Memorial Hospital Neutrophils/100 WBC Auto (Bld)Ordered By: Sandip Bunting on 05-28-2024 Neutrophils/100 WBC (Bld)Automated neutrophil %.[facility] HospitalNucleated erythrocytes [Presence] in Blood by Automated countOrdered By: Sandip Bunting on 17-13-1368Ovhncvvpb RBC Auto Ql (Bld)Nucleated erythrocytes [Presence] in Blood by Automated count0-0.5FJoint Township District Memorial Hospital Platelet mean volume Auto (Bld) [Entitic vol]Ordered By: Sandip Bunting on 02-81-3519Tcakndbu mean volume (Bld) [Entitic vol]Platelet mean volume [Entitic volume] in Blood by Automated count6.6-10.1FJoint Township District Memorial Hospital Platelets Auto (Bld) [#/Vol]Ordered By: Sandip Bunting on 79-79-6607Cuviawhjk (Bld) [#/Vol]Platelets [#/volume] in Blood by Automated hkoer746-431GxpvuynxrSalem City HospitalRBC Auto (Bld) [#/Vol]Ordered By: Sandip Bunting on 01-61-5930BEO (Bld) [#/Vol]Erythrocytes [#/volume] in Blood by Automated count Low3.90-5.60[facility] HospitalWBC Auto (Bld) [#/Vol]Ordered By: Sandip Bunting on 74-13-6092HDM (Bld) [#/Vol]Leukocytes [#/volume] in Blood by Automated count4.1-10.5FJoint Township District Memorial HospitalB-Type Natriuretic Peptideon 58-42-8621Pzhlfblujtp peptide B (Bld) [Mass/Vol]300.0 pg/mLHigh5-100 [facility] Physician GroupComment on above:Result Comment: PERFORMED BY:[place] [address] [place] [place], [place] [phone] MEDICAL DIRECTORJAJA CATES M.D.Performed By: #### BNP, ESR, CRP, CBC ####[address] [address] USABasophils Auto (Bld) [#/Vol]Ordered By: Sandip Bunting on 05-21-2024 Basophils (Bld) [#/Vol]Automated basophil count0.0-0.2FJoint Township District Memorial HospitalBasophils/100 WBC Auto (Bld)Ordered By: Sandip Bunting on 05-21-2024 Basophils/100 WBC (Bld)Automated basophil %.[facility] HospitalC reactive protein [Mass/volume] in Serum or PlasmaOrdered By: Sandip Bunting on 89-90-0533TQD [Mass/Vol]C reactive protein [Mass/volume] in Serum or PlasmaHigh 0.0-0.5FJoint Township District Memorial HospitalC-Reactive Proteinon 14-73-8158A- Reactive Protein3.8 mg/dLHigh0.0-0.5The [facility] Physician GroupComment on above:Result Comment: PERFORMED BY:[place] [address] [place] [place], [place] [phone] MEDICAL DIRECTORJAJA WHITE M.D.Performed By: #### BNP, ESR, CRP, CBC ####[address] [address] USAComplete Blood Count Auto Diff on 75-48-3415Hpwdpvqsp (Bld) [#/Vol]0.0 10*3/uLNormal0.0-0.2[facility] Physician GroupComment on above:Performed By: #### BNP, ESR, CRP, CBC ####[address] [address] [place] Basophils/100 WBC (Bld)1.1 %Normal.[facility] Physician GroupComment on above:Performed By: #### BNP, ESR, CRP, CBC ####[place] [address] USAEosinophils (Bld) [#/Vol]0.4 10*3/uL Normal0.0-0.45[facility] Physician GroupComment on above:Performed By: #### BNP, ESR, CRP, CBC ####[place] [address] USAEosinophils/100 WBC (Bld)8.7 %Normal.[facility] Comment on above:Performed By: #### BNP, ESR, CRP, CBC ####[place] [address] USAErythrocyte distribution width (RBC) [Ratio]16.4 %High12.0-14.8[facility] Physician GroupComment on above: Performed By: #### BNP, ESR, CRP, CBC ####[place] [address] USAHematocrit (Bld) [Volume fraction]23.8 %Low 38.8-50.0[facility] Physician GroupComment on above:Performed By: #### BNP, ESR, CRP, CBC ####[place] [address] USAHemoglobin (Bld) [Mass/Vol]7.9 g/dLLow13.0-17.0[facility] Physician GroupComment on above:Performed By: #### BNP, ESR, CRP, CBC ####[place] [address] USALymphocytes (Bld) [#/Vol]1.5 10*3/uLNormal1.00-4.8The [facility] Physician GroupComment on above: Performed By: #### BNP, ESR, CRP, CBC ####[place] [address] USALymphocytes/100 WBC (Bld)36.1 %Normal.[facility] Physician GroupComment on above:Performed By: #### BNP, ESR, CRP, CBC ####[address] [place] [address] USAMCH (RBC) [Entitic mass]30.4 lzCeexeb43.5-35.2[facility] Physician GroupComment on above:Performed By: #### BNP, ESR, CRP, CBC ####[address] (RBC) [Entitic vol]90.8 fLNormal 83.5-101The [facility] Physician GroupComment on above:Performed By: #### BNP, ESR, CRP, CBC ####[place] [address] USAMean Corpuscular HGB Conc33.4 g/cCBulntn64.5-35.6The [facility] Physician GroupComment on above:Performed By: #### BNP, ESR, CRP, CBC ####[place] [address] [place] Monocytes (Bld) [#/Vol]0.4 10*3/uLNormal0.0-0.8[facility] Comment on above:Performed By: #### BNP, ESR, CRP, CBC ####[place] [address] USAMonocytes/100 WBC (Bld)9.5 % Normal.[facility] Physician GroupComment on above:Performed By: #### BNP, ESR, CRP, CBC ####[place] [address] USANeutrophils (Bld) [#/Vol]1.9 10*3/uLNormal1.8-7.7The [facility] Physician GroupComment on above:Performed By: #### BNP, ESR, CRP, CBC ####[place] [address] [place] Neutrophils/100 WBC (Bld)44.6 %Normal.[facility] Physician GroupComment on above:Performed By: #### BNP, ESR, CRP, CBC ####[place] [address] USANRBC%0.2 /100{WBC}Normal0-0.5[facility] Physician GroupComment on above:Performed By: #### BNP, ESR, CRP, CBC ####[address] Platelet mean volume (Bld) [Entitic vol]7.5 fLNormal6.6-10.1[facility] Physician GroupComment on above:Performed By: #### BNP, ESR, CRP, CBC ####[address] Platelets (Bld) [#/Vol]185 10*3/uKOhixbq227-049T[facility] Comment on above:Performed By: #### BNP, ESR, CRP, CBC ####[place] [address] USARBC (Bld) [#/Vol]2.62 10*6/uL Low3.90-5.60[facility] Physician GroupComment on above:Performed By: #### BNP, ESR, CRP, CBC ####[place] [address] USAWBC (Bld) [#/Vol]4.2 10*3/uLNormal4.1-10.5[facility] Physician GroupComment on above:Performed By: #### BNP, ESR, CRP, CBC ####[place] [address] USAEosinophils Auto (Bld) [#/Vol]Ordered By: Sandip Aguirre on 80-06-1754Lbahdnarvmu (Bld) [#/Vol] Automated eosinophil count0.0-0.45[facility] Eosinophils/100 WBC Auto (Bld)Ordered By: Sandip Aguirre on 05-21-2024 Eosinophils/100 WBC (Bld)Automated eosinophil %.[facility] HospitalErythrocyte Sedimentation Rateon 14-82-6215UAW (Bld) [Velocity]35 mm/hHigh 0-19[facility] Physician GroupComment on above:Result Comment: PERFORMED BY:[address] [place], [place] [phone] MEDICAL DIRECTORJAJA CATES M.D.Performed By: #### BNP, ESR, CRP, CBC ####[facility] [address] [place] [address] [facility] CENTERErythrocyte distribution width Auto (RBC) [Ratio]Ordered By: Sandip Bunsantiago on 74-54-3103Whpyjvwswyz distribution width (RBC) [Ratio]Erythrocyte distribution width [Ratio] by Automated jqhedCyar50.0-14.8[facility] HospitalErythrocyte sedimentation rate by Photometric methodOrdered By: Sandip Bunting on 65-88-0116SMC Photometric method (Bld) [Velocity]Erythrocyte sedimentation rate by Photometric methodHigh0-19[facility] HospitalHematocrit Auto (Bld) [Volume fraction]Ordered By: Sandip Bunting on 28-66-5102Avnseignyy (Bld) [Volume fraction]Hematocrit [Volume Fraction] of Blood by Automated slrvuKbc06.8-50.0[facility] HospitalHemoglobin [Mass/volume] in BloodOrdered By: Sandip Bunting on 98-14-1230Nurtifvyeq (Bld) [Mass/Vol]Hemoglobin [Mass/volume] in DezqzApa71.0-17.0[facility] HospitalInfectious Disease Office/Clinic Noteon [id number] Disease Office/Clinic NoteAssessment/Plan 1. Surgical wound dehiscence Plan: This time we will send orders over to discontinue midline. Would like repeat lab work on 05/28. CBC/basic metabolic profile, CRP, and sed rate. Will call results. Will see how he does off antibiotics. Encouraged to follow-up with neurosurgeon regarding his back.Also would be a good idea to connect with rap artist he continues to have mildly elevated creatinine. Return to clinic 2 weeks via telehealth Instructions to patient: If condition worsens in any way or you develop any signs or symptoms of infection please notify theoffice right away. Call for questions. Chief Complaint 7-10 day f/u dehiscence of surgical wound History of Present Illness 83-year-old male being seen today in follow-up for dehisced surgical wound. During last office visit 05/10/2024 patient continued to have some drainage. Inflammation markers improved however still elevated. Decision was made to extend out meropenem additional week. Patient should have completed treatment on 05/17/2024. This proposal manager writer did review most recent lab work from 05/21/2024 WBCs looked okay hemoglobin continues to be low at 7.9. Platelets looked okay. Unfortunately they still have not done any basic metabolic profile. They keep doing a BNP. Had sed rate which was 35 and a CRP which was 3.8 however improved from previous. Visit patient has been doing okay he finished infusions on 05/17. He is not having any fevers or chills nurse in the room reports his incision looks good minimal erythema. Midline is doing okay. Some erythema however not painful. No drainage coming from back. No headaches to report. They also reportthey decreased his Coreg due to they thought he was getting lethargic on high dose so they decreased it by half. He has been doing better no fevers or chills. No chest pain or heart palpitations is not lightheaded or dizzy. No nausea, vomiting or diarrhea. HIstory: He had lumbar decompression with fusion February 20. He has had prior ablations prior to the surgery. 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 He states it was a very long name for the andre [1] he had surgery at [facility] in [place].Postoperatively gained a lot of fluid weight. Also has catheter for urinary retention. Has chronic lymphedema uses pumps at home. Admitted to [place] had MRI that showed fluid collection. History ofA-fib. Surgery was not done there due to need for cardiology services. Transferred to [facility] where he connected with cardiology. Actually went to the OR on 04/17/2024 for 8 weeks status post lumbar decompression and noninstrumented fusion with postoperative fluid collection and wound dehisced. Had I&D. Culture positive for Pseudomonas resistant to fluoroquinolones. Sent out on meropenem with midline for 2 weeks. Did have lab work completed on 04/30/2024. White blood cells looked okay hemoglobin okay sed rate and CRP elevated however improved from previous. Should have completed treatment on 05/03/2024. Review of Systems All systems have been reviewed and are negative other than those listed in the HPI Physical Exam Vitals & Measurements HR: 49 (Peripheral) BP: 118/46 SpO2: 96% HT: 167 cm WT: 87.6 kg WT: 87.6 kg (Dosing) BMI: 31.41 Vitals reviewed. Patient in no apparent distress. No audible wheezes heard during exam. Makes good eye contact somewhat hard of hearing. Midline right upper arm site looks okay. Was not able to visualize back. Answers questions appropriately. Appears somewhat pale. Additional Vitals BP Position/Location: Sitting, Left arm Medical Decision Making Chronic conditions NOT treated during this visit that affected my overall medical decision making: [] Treatment plans discussed but not opted for at this time: [] Prescribed medication that requires intensive monitoring for toxicity: [] I have reviewed the patient?s medication list for medication interactions/contraindications and/or for upcoming procedures: [yes] Time Spent with the Patient I have personally spent [33] minutes on this date, directly related to today's patient visit, including pre and post visit work, for this date of service. Time listed does not include time spent on separately billable services. Problem List/Past Medical History Ongoing Atrial fibrillation, permanent Wayne's cyst of knee Chronic kidney disease Chronic systolic heart failure Current use of anticoagulants Gout History of gastric ulcer Hypercholesterolemia Hypothyroidism Lymphedema Sleep apnea Historical No qualifying data Procedure/Surgical History History of bilateral knee replacement History of left hip replacement History of lithotripsy Cataract surgery SINUS SURGERY PROCEDURE Rotator cuff surgery Lumbar decompression with fusion (02/21/2024) Lumbar Wound Irrigation (04/17/2024) Medications allopurinol 300 mg oral tablet, 300 mg= 1 tabs, Oral, Daily atorvastatin 40 m (more content not included)...[facility] CenterLeukocytes [#/volume] corrected for nucleated erythrocytes in Blood by Automated counOrdered By: Sandip Aguirre on 72-21-4137KJN corrected for nucl RBC Auto (Bld) [#/Vol]Leukocytes [#/volume] corrected for nucleated erythrocytes in Blood by Automated coun4.1-10.5FJoint Township District Memorial HospitalLymphocytes Auto (Bld) [#/Vol]Ordered By: Sandip Aguirre on 92-03-4787Kldoexpywpv (Bld) [#/Vol]Lymphocytes [#/volume] in Blood by Automated count1.00-4.8[facility] HospitalLymphocytes/100 WBC Auto (Bld)Ordered By: Sandip Bunting on 03-96-5018Ubmssatbmww/100 WBC (Bld)Lymphocytes/100 leukocytes in Blood by Automated count.[facility] HospitalMCH Auto (RBC) [Entitic mass] Ordered By: Sandip Bunting on 47-11-9290LQO (RBC) [Entitic mass]MCH [Entitic mass] by Automated count27.5-35.2FJoint Township District Memorial HospitalMCHC Auto (RBC) [Mass/Vol]Ordered By: Sandip Bunting on 33-51-8580LHIC (RBC) [Mass/Vol] MCHC [Mass/volume] by Automated count32.5-35.6FJoint Township District Memorial Hospital MCV Auto (RBC) [Entitic vol]Ordered By: Sandip Bunting on 87-58-8104QOO (RBC) [Entitic vol]MCV [Entitic volume] by Automated count83.5-101[facility] HospitalMonocytes Auto (Bld) [#/Vol]Ordered By: Sandip Bunting on 16-55-9203Pruecwhjp (Bld) [#/Vol]Automated blood monocyte count0.0-0.8[facility] HospitalMonocytes/100 WBC Auto (Bld)Ordered By: Sandip Bunting on 19-92-8962Gvdgeaiiu/100 WBC (Bld)Automated monocyte %.[facility] HospitalNatriuretic peptide B [Mass/Vol]Ordered By: Sandip Bunting on 62-16-1752Azqpfnbtxyj peptide B (Bld) [Mass/Vol]BNP ser/plasHigh5-100[facility] HospitalNeutrophils Auto (Bld) [#/Vol]Ordered By: Sandip Bunting on 99-05-4303Famkhgomyey (Bld) [#/Vol]Neutrophils [#/volume] in Blood by Automated count1.8-7.7FJoint Township District Memorial HospitalNeutrophils/100 WBC Auto (Bld)Ordered By: Sandip Bunting on 35-00-6397Nqiqdyavscd/100 WBC (Bld)Automated neutrophil %.[facility] City HospitalNucleated erythrocytes [Presence] in Blood by Automated countOrdered By: Sandip Bunting on 14-23-0084Qdnnglhrj RBC Auto Ql (Bld)Nucleated erythrocytes [Presence] in Blood by Automated count0-0.5 [facility] HospitalPlatelet mean volume Auto (Bld) [Entitic vol] Ordered By: Sandip Bunting on 94-80-5454Jhasfheg mean volume (Bld) [Entitic vol] Platelet mean volume [Entitic volume] in Blood by Automated count6.6-10.1 [facility] HospitalPlatelets Auto (Bld) [#/Vol]Ordered By: Sandip Bunting on 52-19-3791Qzmxspfil (Bld) [#/Vol]Platelets [#/volume] in Blood by Automated lgwlu615-995WgdkmwyphSalem City HospitalRBC Auto (Bld) [#/Vol] Ordered By: Sandip Bunting on 79-78-1610BDP (Bld) [#/Vol]Erythrocytes [#/volume] in Blood by Automated countLow3.90-5.60[facility] HospitalWBC Auto (Bld) [#/Vol]Ordered By: Sandip Bunting on 06-63-8374NMR (Bld) [#/Vol] Leukocytes [#/volume] in Blood by Automated count4.1-10.5FJoint Township District Memorial HospitalB-Type Natriuretic Peptideon 99-96-3293Cuhkxutchgs peptide B (Bld) [Mass/Vol]322.0 pg/mLHigh5-100The [facility] Hospital Physician GroupComment on above: Result Comment: PERFORMED BY:[facility] [place], [place] [phone] MEDICAL DIRECTORJAJA WHITE M.D.Performed By: #### CBC, CRP, BNP, ESR ####[address] [place] [address] USABasophils Auto (Bld) [#/Vol] Ordered By: Sandip Bunting on 68-84-6312Niyerqfra (Bld) [#/Vol]Automated basophil count0.0-0.2FJoint Township District Memorial HospitalBasophils/100 WBC Auto (Bld)Ordered By: Sandip Bunting on 02-10-3551Orupbdogn/100 WBC (Bld)Automated basophil %.[facility] HospitalC reactive protein [Mass/volume] in Serum or PlasmaOrdered By: Sandip Aguirre on 11-51-7311PGN [Mass/Vol]C reactive protein [Mass/volume] in Serum or PlasmaHigh0.0-0.5FJoint Township District Memorial HospitalC-Reactive Proteinon 65-00-0374G-Reactive Protein6.0 mg/dLHigh0.0-0.5The [facility] Hospital Physician GroupComment on above:Result Comment: PERFORMED BY:[address] [place], [place] [phone] MEDICAL DIRECTORJAJA CATES M.D.Performed By: #### CBC, CRP, BNP, ESR ####[place] [id number] [facility] Complete Blood Count Auto Diffon 44-37-7387Gdxyqwliv (Bld) [#/Vol]0.0 10*3/uL Normal0.0-0.2The [facility] Hospital Physician GroupComment on above:Performed By: #### CBC, CRP, BNP, ESR ####[address] [address] USABasophils/100 WBC (Bld)0.9 %Normal.[facility] Comment on above:Performed By: #### CBC, CRP, BNP, ESR ####[address] [address] USAEosinophils (Bld) [#/Vol]0.5 10*3/uLHigh0.0-0.45The [facility] Hospital Physician GroupComment on above:Performed By: #### CBC, CRP, BNP, ESR ####[address] [address] USAEosinophils/100 WBC (Bld)10.9 %Normal.[facility] Hospital Physician GroupComment on above:Performed By: #### CBC, CRP, BNP, ESR ####[address] [address] [facility] Erythrocyte distribution width (RBC) [Ratio]16.9 %High12.0-14.8The [facility] Hospital Physician GroupComment on above:Performed By: #### CBC, CRP, BNP, ESR ####[place] [address] [place] Hematocrit (Bld) [Volume fraction]24.8 %Low38.8-50.0[facility] Hospital Physician GroupComment on above:Performed By: #### CBC, CRP, BNP, ESR ####[place] [address] USAHemoglobin (Bld) [Mass/Vol]8.3 g/dLLow13.0-17.0[facility] Hospital Physician GroupComment on above: Performed By: #### CBC, CRP, BNP, ESR ####[place] [address] USALymphocytes (Bld) [#/Vol]1.4 10*3/uLNormal 1.00-4.8[facility] Hospital Physician GroupComment on above:Performed By: #### CBC, CRP, BNP, ESR ####[place] [address] USALymphocytes/100 WBC (Bld)29.6 %Normal.[facility] Comment on above:Performed By: #### CBC, CRP, BNP, ESR ####[place] [id number] USAMCH (RBC) [Entitic mass]30.4 opYaeaii81.5-35.2[facility] Physician GroupComment on above:Performed By: #### CBC, CRP, BNP, ESR ####[place] [address] USAMCV (RBC) [Entitic vol]90.6 cJQvenoe49.5-101The [facility] Physician GroupComment on above:Performed By: #### CBC, CRP, BNP, ESR ####[place] [address] USAMean Corpuscular HGB Conc33.5 g/kVHcyleu35.5-35.6The [facility] Physician GroupComment on above:Performed By: #### CBC, CRP, BNP, ESR ####[place] [address] USAMonocytes (Bld) [#/Vol]0.4 10*3/uL Normal0.0-0.8[facility] Hospital Physician GroupComment on above:Performed By: #### CBC, CRP, BNP, ESR ####[place] [address] USAMonocytes/100 WBC (Bld)9.0 %Normal.[facility] Comment on above:Performed By: #### CBC, CRP, BNP, ESR ####[place] [address] USANeutrophils (Bld) [#/Vol]2.3 10*3/uLNormal1.8-7.7The [facility] Hospital Physician GroupComment on above:Performed By: #### CBC, CRP, BNP, ESR ####[place] [address] USANeutrophils/100 WBC (Bld)49.6 %Normal.[facility] Physician GroupComment on above:Performed By: #### CBC, CRP, BNP, ESR ####[place] [address] USANRBC% 0.1 /100{WBC}Normal0-0.5[facility] Physician GroupComment on above:Performed By: #### CBC, CRP, BNP, ESR ####[place] [address] USAPlatelet mean volume (Bld) [Entitic vol]7.7 fLNormal 6.6-10.1[facility] Physician GroupComment on above:Performed By: #### CBC, CRP, BNP, ESR ####[place] [address] USAPlatelets (Bld) [#/Vol]207 10*3/lCVbxiys712-569Pdu [facility] Hospital Physician GroupComment on above:Performed By: #### CBC, CRP, BNP, ESR ####[address] [address] USARBC (Bld) [#/Vol]2.73 10*6/uLLow3.90-5.60[facility] Physician GroupComment on above:Performed By: #### CBC, CRP, BNP, ESR ####[address] [address] USAWBC (Bld) [#/Vol]4.7 10*3/uLNormal4.1-10.5The [facility] Physician GroupComment on above:Performed By: #### CBC, CRP, BNP, ESR ####[address] [address] [place] Eosinophils Auto (Bld) [#/Vol]Ordered By: Sandip Bunting on 05-14-2024 Eosinophils (Bld) [#/Vol]Automated eosinophil countHigh0.0-0.45[facility] HospitalEosinophils/100 WBC Auto (Bld)Ordered By: Sandip Bunting on 36-20-0831Bezoqgdgica/100 WBC (Bld)Automated eosinophil %.[facility] HospitalErythrocyte Sedimentation Rateon 44-50-2546VQW (Bld) [Velocity]59 mm/hHigh0-19The [facility] Physician GroupComment on above:Result Comment: PERFORMED BY:[address] [place], [place] [phone] MEDICAL DIRECTORJAJA CATES M.D. Performed By: #### CBC, CRP, BNP, ESR ####[address] [address] USAErythrocyte distribution width Auto (RBC) [Ratio]Ordered By: Sandip Bunting on 46-53-7110Lkaypzbbnda distribution width (RBC) [Ratio]Erythrocyte distribution width [Ratio] by Automated countHigh 12.0-14.8[facility] HospitalErythrocyte sedimentation rate by Photometric methodOrdered By: Sandip Bunting on 29-88-3033YBE Photometric method (Bld) [Velocity]Erythrocyte sedimentation rate by Photometric methodHigh0-19 [facility] HospitalHematocrit Auto (Bld) [Volume fraction]Ordered By: Sandip Bunting on 58-10-0865Uxfyukdnsp (Bld) [Volume fraction]Hematocrit [Volume Fraction] of Blood by Automated uvjzxUax57.8-50.0[facility] HospitalHemoglobin [Mass/volume] in BloodOrdered By: Sandip Bunting on 62-78-2312Ixjuhizekb (Bld) [Mass/Vol]Hemoglobin [Mass/volume] in BloodLow 13.0-17.0[facility] HospitalLeukocytes [#/volume] corrected for nucleated erythrocytes in Blood by Automated counOrdered By: Sandip Bunting on 30-77-1201STI corrected for nucl RBC Auto (Bld) [#/Vol]Leukocytes [#/volume] corrected for nucleated erythrocytes in Blood by Automated coun4.1-10.5FJoint Township District Memorial HospitalLymphocytes Auto (Bld) [#/Vol]Ordered By: Sandip Bunting on 39-59-0904Myphhtxvjlf (Bld) [#/Vol]Lymphocytes [#/volume] in Blood by Automated count1.00-4.8[facility] HospitalLymphocytes/100 WBC Auto (Bld)Ordered By: Sandip Bunting on 11-13-8605Otzmyoxzois/100 WBC (Bld) Lymphocytes/100 leukocytes in Blood by Automated count.[facility] HealthH Auto (RBC) [Entitic mass]Ordered By: Sandip Bunting on 77-01-7352ZFX (RBC) [Entitic mass]MCH [Entitic mass] by Automated count27.5-35.2 [facility] HospitalMCHC Auto (RBC) [Mass/Vol]Ordered By: Sandip Bunting on 25-78-8059GKKA (RBC) [Mass/Vol]MCHC [Mass/volume] by Automated count 32.5-35.6FJoint Township District Memorial HospitalMCV Auto (RBC) [Entitic vol]Ordered By: Sandip Bunting on 85-44-9447NGI (RBC) [Entitic vol]MCV [Entitic volume] by Automated count83.5-101[facility] HospitalMonocytes Auto (Bld) [#/Vol]Ordered By: Sandip Bunting on 70-50-2798Kxqkvfref (Bld) [#/Vol]Automated blood monocyte count0.0-0.8[facility] HospitalMonocytes/100 WBC Auto (Bld)Ordered By: Sandip Bunting on 57-43-6994Mrjigjuum/100 WBC (Bld) Automated monocyte %.[facility] HospitalNatriuretic peptide B [Mass/Vol]Ordered By: Sandip Bunting on 30-87-2630Rpqygbbjnzf peptide B (Bld) [Mass/Vol]BNP ser/plasHigh5-100[facility] HospitalNeutrophils Auto (Bld) [#/Vol]Ordered By: Sandip Bunting on 07-45-0844Fufqhjqmapk (Bld) [#/Vol] Neutrophils [#/volume] in Blood by Automated count1.8-7.7FJoint Township District Memorial HospitalNeutrophils/100 WBC Auto (Bld)Ordered By: Sandip Bunting on 77-98-7101Svebjbafogz/100 WBC (Bld)Automated neutrophil %.[facility] HospitalNucleated erythrocytes [Presence] in Blood by Automated count Ordered By: Sandip Bunting on 85-34-3072Ssujbqohx RBC Auto Ql (Bld)Nucleated erythrocytes [Presence] in Blood by Automated count0-0.5FJoint Township District Memorial HospitalPlatelet mean volume Auto (Bld) [Entitic vol]Ordered By: Sandip Bunting on 47-27-0364Fkhmlpth mean volume (Bld) [Entitic vol]Platelet mean volume [Entitic volume] in Blood by Automated count6.6-10.1FJoint Township District Memorial HospitalPlatelets Auto (Bld) [#/Vol]Ordered By: Sandip Bunting on 59-10-2003Suklmsruk (Bld) [#/Vol]Platelets [#/volume] in Blood by Automated tnvpu619-431JagvpwsrpSalem City HospitalRBC Auto (Bld) [#/Vol]Ordered By: Sandip Bunting on 59-21-6265LIZ (Bld) [#/Vol]Erythrocytes [#/volume] in Blood by Automated countLow3.90-5.60[facility] HospitalWBC Auto (Bld) [#/Vol]Ordered By: Sandip Bunting on 38-51-9600VCR (Bld) [#/Vol]Leukocytes [#/volume] in Blood by Automated count4.1-10.5FJoint Township District Memorial Hospital B-Type Natriuretic Peptideon 01-91-1785Mtesxrgfzwu peptide B (Bld) [Mass/Vol] 356.0 pg/mLHigh5-100[facility] Physician GroupComment on above:Result Comment: PERFORMED BY:[place] [address] [address] [place], [place] [phone] MEDICAL DIRECTORJAJA CATES M.D. Performed By: #### ESR, CRP, BNP, CBC ####[place] [address] [place] [address] USABasophils Auto (Bld) [#/Vol]Ordered By: Sandip Bunting on 38-39-9072Tpxjmdquo (Bld) [#/Vol]Automated basophil count0.0-0.2 [facility] HospitalBasophils/100 WBC Auto (Bld)Ordered By: Sandip Bunting on 55-03-7328Rizirysxz/100 WBC (Bld)Automated basophil %.[facility] HospitalC reactive protein [Mass/volume] in Serum or Plasma Ordered By: Sandip Bunting on 99-43-6967RXP [Mass/Vol]C reactive protein [Mass/volume] in Serum or PlasmaHigh0.0-0.5FJoint Township District Memorial HospitalC- Reactive Proteinon 37-52-7238I-Reactive Protein5.8 mg/dLHigh0.0-0.5[facility] Physician GroupComment on above:Result Comment: PERFORMED BY:[place] [address] [address] [place], [place] [phone] MEDICAL DIRECTORJAJA CATES M.D.Performed By: #### ESR, CRP, BNP, CBC ####[address] [address] [facility] Complete Blood Count Auto Diffon 74-20-1291Bvyknubcb (Bld) [#/Vol]0.1 10*3/uL Normal0.0-0.2[facility] Physician GroupComment on above:Performed By: #### ESR, CRP, BNP, CBC ####[place] [address] USABasophils/100 WBC (Bld)1.3 %Normal.[facility] Comment on above:Performed By: #### ESR, CRP, BNP, CBC ####[place] [address] USAEosinophils (Bld) [#/Vol]0.4 10*3/uLNormal0.0-0.45[facility] Physician GroupComment on above:Performed By: #### ESR, CRP, BNP, CBC ####[place] [address] USAEosinophils/100 WBC (Bld)7.9 %Normal.[facility] Physician GroupComment on above:Performed By: #### ESR, CRP, BNP, CBC ####[address] Erythrocyte distribution width (RBC) [Ratio]17.2 %High12.0-14.8[facility] Physician GroupComment on above:Performed By: #### ESR, CRP, BNP, CBC ####[place] [address] [place] Hematocrit (Bld) [Volume fraction]26.9 %Low38.8-50.0[facility] Physician GroupComment on above:Performed By: #### ESR, CRP, BNP, CBC ####[place] [address] USAHemoglobin (Bld) [Mass/Vol]8.8 g/dLLow13.0-17.0[facility] Physician GroupComment on above: Performed By: #### ESR, CRP, BNP, CBC ####[place] [address] USALymphocytes (Bld) [#/Vol]1.3 10*3/uLNormal 1.00-4.8[facility] Physician GroupComment on above:Performed By: #### ESR, CRP, BNP, CBC ####[place] [address] USALymphocytes/100 WBC (Bld)29.0 %Normal.[facility] Comment on above:Performed By: #### ESR, CRP, BNP, CBC ####[place] [address] [facility] (RBC) [Entitic mass]30.0 qrPaaoir68.5-35.2[facility] Physician GroupComment on above:Performed By: #### ESR, CRP, BNP, CBC ####[place] [address] [facility]V (RBC) [Entitic vol]91.3 yALjlcyj03.5-101[facility] Physician GroupComment on above:Performed By: #### ESR, CRP, BNP, CBC ####[place] [address] USAMean Corpuscular HGB Conc32.9 g/eHJsfjzq21.5-35.6[facility] Physician GroupComment on above:Performed By: #### ESR, CRP, BNP, CBC ####[place] [address] USAMonocytes (Bld) [#/Vol]0.3 10*3/uL Normal0.0-0.8[facility] Physician GroupComment on above:Performed By: #### ESR, CRP, BNP, CBC ####[place] [address] USAMonocytes/100 WBC (Bld)6.4 %Normal.[facility] Comment on above:Performed By: #### ESR, CRP, BNP, CBC ####[place] [address] USANeutrophils (Bld) [#/Vol]2.6 10*3/uLNormal1.8-7.7[facility] Physician GroupComment on above:Performed By: #### ESR, CRP, BNP, CBC ####[place] [address] USANeutrophils/100 WBC (Bld)55.4 %Normal.[facility] Physician GroupComment on above:Performed By: #### ESR, CRP, BNP, CBC ####[place] [address] USANRBC% 0.1 /100{WBC}Normal0-0.5[facility] Physician GroupComment on above:Performed By: #### ESR, CRP, BNP, CBC ####[place] [address] USAPlatelet mean volume (Bld) [Entitic vol]7.6 fLNormal 6.6-10.1[facility] Physician GroupComment on above:Performed By: #### ESR, CRP, BNP, CBC ####[place] [address] USAPlatelets (Bld) [#/Vol]192 10*3/xUHhwvba517-182Tog [facility] Hospital Physician GroupComment on above:Performed By: #### ESR, CRP, BNP, CBC ####[place] [address] USARBC (Bld) [#/Vol]2.95 10*6/uLLow3.90-5.60[facility] Physician GroupComment on above:Performed By: #### ESR, CRP, BNP, CBC ####[place] [address] USAWBC (Bld) [#/Vol]4.7 10*3/uLNormal4.1-10.5[facility] Physician GroupComment on above:Performed By: #### ESR, CRP, BNP, CBC ####[place] [address] [place] Eosinophils Auto (Bld) [#/Vol]Ordered By: Sandip Aguirre on 05-07-2024 Eosinophils (Bld) [#/Vol]Automated eosinophil count0.0-0.45[facility] HospitalEosinophils/100 WBC Auto (Bld)Ordered By: Sandip Aguirre on 75-39-3099Prowtsveqlv/100 WBC (Bld)Automated eosinophil %.[facility] HospitalErythrocyte Sedimentation Rateon 11-73-2599UBA (Bld) [Velocity]65 mm/hHigh0-19[facility] Physician GroupComment on above:Result Comment: PERFORMED BY:[facility] [place], [place] [phone] MEDICAL DIRECTORJAJA CATES M.D. Performed By: #### ESR, CRP, BNP, CBC ####[facility] [place] [address] USAErythrocyte distribution width Auto (RBC) [Ratio]Ordered By: Sandip Bunting on 79-76-4685Uxvnwomsqft distribution width (RBC) [Ratio]Erythrocyte distribution width [Ratio] by Automated countHigh 12.0-14.8[facility] HospitalErythrocyte sedimentation rate by Photometric methodOrdered By: Sandip Bunting on 92-21-7658JJW Photometric method (Bld) [Velocity]Erythrocyte sedimentation rate by Photometric methodHigh0-19 [facility] HospitalHematocrit Auto (Bld) [Volume fraction]Ordered By: Sandip Bunting on 74-16-6390Gaqyzfmmhx (Bld) [Volume fraction]Hematocrit [Volume Fraction] of Blood by Automated wnafdLmm92.8-50.0[facility] HospitalHemoglobin [Mass/volume] in BloodOrdered By: Sandip Bunting on 17-99-5475Ghpcqlmbvo (Bld) [Mass/Vol]Hemoglobin [Mass/volume] in BloodLow 13.0-17.0[facility] HospitalLeukocytes [#/volume] corrected for nucleated erythrocytes in Blood by Automated counOrdered By: Sandip Bunting on 47-80-5393MBK corrected for nucl RBC Auto (Bld) [#/Vol]Leukocytes [#/volume] corrected for nucleated erythrocytes in Blood by Automated coun4.1-10.5FJoint Township District Memorial HospitalLymphocytes Auto (Bld) [#/Vol]Ordered By: Sandip Bunting on 59-28-3023Igvidukpdbp (Bld) [#/Vol]Lymphocytes [#/volume] in Blood by Automated count1.00-4.8[facility] HospitalLymphocytes/100 WBC Auto (Bld)Ordered By: Sandip Bunting on 62-82-7831Upvxgqefjka/100 WBC (Bld) Lymphocytes/100 leukocytes in Blood by Automated count.[facility] HealthH Auto (RBC) [Entitic mass]Ordered By: Sandip Bunting on 57-95-9756ZOV (RBC) [Entitic mass]MCH [Entitic mass] by Automated count27.5-35.2 [facility] HospitalMCHC Auto (RBC) [Mass/Vol]Ordered By: Sandip Bunting on 31-73-3659DEEC (RBC) [Mass/Vol]MCHC [Mass/volume] by Automated count 32.5-35.6FJoint Township District Memorial HospitalMCV Auto (RBC) [Entitic vol]Ordered By: Sandip Bunting on 35-18-5710VVK (RBC) [Entitic vol]MCV [Entitic volume] by Automated count83.5-101[facility] HospitalMonocytes Auto (Bld) [#/Vol]Ordered By: Sandip Bunting on 75-84-3334Gcysbiyhl (Bld) [#/Vol]Automated blood monocyte count0.0-0.8[facility] HospitalMonocytes/100 WBC Auto (Bld)Ordered By: Sandip Bunting on 59-38-1720Imvuymmoz/100 WBC (Bld) Automated monocyte %.[facility] HospitalNatriuretic peptide B [Mass/Vol]Ordered By: Sandip Bunting on 69-93-6342Wgzrjooqwba peptide B (Bld) [Mass/Vol]BNP ser/plasHigh5-100[facility] HospitalNeutrophils Auto (Bld) [#/Vol]Ordered By: Sandip Bunting on 92-02-2939Ufcudhiljuv (Bld) [#/Vol] Neutrophils [#/volume] in Blood by Automated count1.8-7.7FJoint Township District Memorial HospitalNeutrophils/100 WBC Auto (Bld)Ordered By: Sandip Bunting on 75-48-5907Pagscijwomx/100 WBC (Bld)Automated neutrophil %.[facility] HospitalNucleated erythrocytes [Presence] in Blood by Automated count Ordered By: Sandip Bunting on 55-64-7617Eroelfmdn RBC Auto Ql (Bld)Nucleated erythrocytes [Presence] in Blood by Automated count0-0.5FJoint Township District Memorial HospitalPlatelet mean volume Auto (Bld) [Entitic vol]Ordered By: Sandip Bunting on 75-43-8238Hyadipsf mean volume (Bld) [Entitic vol]Platelet mean volume [Entitic volume] in Blood by Automated count6.6-10.1FJoint Township District Memorial HospitalPlatelets Auto (Bld) [#/Vol]Ordered By: Sandip Bunting on 76-76-4514Coedqopjb (Bld) [#/Vol]Platelets [#/volume] in Blood by Automated jwkgi701-616XxrcbqmsySalem City HospitalRBC Auto (Bld) [#/Vol]Ordered By: Sandip Bunting on 10-34-8424RUS (Bld) [#/Vol]Erythrocytes [#/volume] in Blood by Automated countLow3.90-5.60[facility] HospitalWBC Auto (Bld) [#/Vol]Ordered By: Sandip Bunting on 01-33-0718QZW (Bld) [#/Vol]Leukocytes [#/volume] in Blood by Automated count4.1-10.5FJoint Township District Memorial Hospital B-Type Natriuretic Peptideon 20-41-5490Pcjmjsywvdy peptide B (Bld) [Mass/Vol] 269.0 pg/mLHigh5-100[facility] Physician GroupComment on above:Result Comment: PERFORMED BY:[facility] [place], [place] [phone] MEDICAL DIRECTORJAJA CATES M.D. Performed By: #### CBC, BNP, ESR, CRP ####[address] [place] [address] USABasophils Auto (Bld) [#/Vol]Ordered By: Sandip Bunting on 76-70-3073Pkxjvwoja (Bld) [#/Vol]Automated basophil count0.0-0.2 [facility] HospitalBasophils/100 WBC Auto (Bld)Ordered By: Sandip Bunting on 15-71-0733Dctawaueh/100 WBC (Bld)Automated basophil %.[facility] HospitalC reactive protein [Mass/volume] in Serum or Plasma Ordered By: Sandip Aguirre on 73-77-3593PHC [Mass/Vol]C reactive protein [Mass/volume] in Serum or PlasmaHigh0.0-0.5FJoint Township District Memorial HospitalC- Reactive Proteinon 51-36-9795R-Reactive Protein4.6 mg/dLHigh0.0-0.5The [facility] Physician GroupComment on above:Result Comment: PERFORMED BY:[address] [place], [place] [phone] MEDICAL DIRECTORJAJA CATES M.D.Performed By: #### CBC, BNP, ESR, CRP ####[place] [id number] [facility] Complete Blood Count Auto Diffon 62-14-0246Dhqpkjqxp (Bld) [#/Vol]0.1 10*3/uL Normal0.0-0.2The [facility] Hospital Physician GroupComment on above:Performed By: #### CBC, BNP, ESR, CRP ####[address] [address] USABasophils/100 WBC (Bld)1.3 %Normal.[facility] Comment on above:Performed By: #### CBC, BNP, ESR, CRP ####[address] [address] USAEosinophils (Bld) [#/Vol]0.4 10*3/uLNormal0.0-0.45The [facility] Physician GroupComment on above:Performed By: #### CBC, BNP, ESR, CRP ####[place] USAEosinophils/100 WBC (Bld)7.5 %Normal.[facility] Physician GroupComment on above:Performed By: #### CBC, BNP, ESR, CRP ####[id number] [facility] Erythrocyte distribution width (RBC) [Ratio]17.6 %High12.0-14.8[facility] Hospital Physician GroupComment on above:Performed By: #### CBC, BNP, ESR, CRP ####[place] [address] [place] Hematocrit (Bld) [Volume fraction]26.4 %Low38.8-50.0[facility] Physician GroupComment on above:Performed By: #### CBC, BNP, ESR, CRP ####[place] [address] USAHemoglobin (Bld) [Mass/Vol]8.8 g/dLLow13.0-17.0[facility] Physician GroupComment on above: Performed By: #### CBC, BNP, ESR, CRP ####[place] [address] USALymphocytes (Bld) [#/Vol]1.9 10*3/uLNormal 1.00-4.8[facility] Physician GroupComment on above:Performed By: #### CBC, BNP, ESR, CRP ####[place] [address] USALymphocytes/100 WBC (Bld)35.3 %Normal.[facility] Comment on above:Performed By: #### CBC, BNP, ESR, CRP ####[address] Craig StreetMCH (RBC) [Entitic mass]30.7 jhZfutme72.5-35.2[facility] Physician GroupComment on above:Performed By: #### CBC, BNP, ESR, CRP ####[place] [address] USAMCV (RBC) [Entitic vol]92.5 gCVeffoc83.5-101The [facility] Physician GroupComment on above:Performed By: #### CBC, BNP, ESR, CRP ####[place] [address] USAMean Corpuscular HGB Conc33.1 g/hBUdnxbb06.5-35.6[facility] Physician GroupComment on above:Performed By: #### CBC, BNP, ESR, CRP ####[place] [address] USAMonocytes (Bld) [#/Vol]0.4 10*3/uL Normal0.0-0.8[facility] Physician GroupComment on above:Performed By: #### CBC, BNP, ESR, CRP ####[place] [address] USAMonocytes/100 WBC (Bld)7.1 %Normal.[facility] Comment on above:Performed By: #### CBC, BNP, ESR, CRP ####[place] [address] USANeutrophils (Bld) [#/Vol]2.6 10*3/uLNormal1.8-7.7[facility] Physician GroupComment on above:Performed By: #### CBC, BNP, ESR, CRP ####[place] [address] USANeutrophils/100 WBC (Bld)48.8 %Normal.[facility] Physician GroupComment on above:Performed By: #### CBC, BNP, ESR, CRP ####[place] [address] USANRBC% 0.1 /100{WBC}Normal0-0.5The [facility] Physician GroupComment on above:Performed By: #### CBC, BNP, ESR, CRP ####[place] [address] USAPlatelet mean volume (Bld) [Entitic vol]7.3 fLNormal 6.6-10.1The [facility] Physician GroupComment on above:Performed By: #### CBC, BNP, ESR, CRP ####[place] [address] USAPlatelets (Bld) [#/Vol]238 10*3/pGUmhphw873-447Ckn [facility] Hospital Physician GroupComment on above:Performed By: #### CBC, BNP, ESR, CRP ####[address] [place] [address] USARBC (Bld) [#/Vol]2.85 10*6/uLLow3.90-5.60[facility] Physician GroupComment on above:Performed By: #### CBC, BNP, ESR, CRP ####[address] [address] USAWBC (Bld) [#/Vol]5.4 10*3/uLNormal4.1-10.5The [facility] Physician GroupComment on above:Performed By: #### CBC, BNP, ESR, CRP ####[address] [address] [place] Eosinophils Auto (Bld) [#/Vol]Ordered By: Sandip Bunting on 04-30-2024 Eosinophils (Bld) [#/Vol]Automated eosinophil count0.0-0.45[facility] HospitalEosinophils/100 WBC Auto (Bld)Ordered By: Sandip Bunting on 46-87-8775Frvnpgvurpo/100 WBC (Bld)Automated eosinophil %.[facility] HospitalErythrocyte Sedimentation Rateon 06-07-0056EPI (Bld) [Velocity]57 mm/hHigh0-19The [facility] Physician GroupComment on above:Result Comment: PERFORMED BY:[address] [place], [place] [phone] MEDICAL DIRECTORJAJA CATES M.D. Performed By: #### CBC, BNP, ESR, CRP ####[address] [address] USAErythrocyte distribution width Auto (RBC) [Ratio]Ordered By: Sandip Bunting on 99-17-5875Vuicvlqofoh distribution width (RBC) [Ratio]Erythrocyte distribution width [Ratio] by Automated countHigh 12.0-14.8[facility] HospitalErythrocyte sedimentation rate by Photometric methodOrdered By: Sandip Bunting on 82-73-0112VIZ Photometric method (Bld) [Velocity]Erythrocyte sedimentation rate by Photometric methodHigh0-19 [facility] HospitalHematocrit Auto (Bld) [Volume fraction]Ordered By: Sandip Bunting on 73-65-1386Jkzfrbfsrg (Bld) [Volume fraction]Hematocrit [Volume Fraction] of Blood by Automated wkbczDrc51.8-50.0[facility] HospitalHemoglobin [Mass/volume] in BloodOrdered By: Sandip Bunting on 57-90-3419Dzzmwrflnl (Bld) [Mass/Vol]Hemoglobin [Mass/volume] in BloodLow 13.0-17.0[facility] HospitalLeukocytes [#/volume] corrected for nucleated erythrocytes in Blood by Automated counOrdered By: Sandip Bunting on 76-10-9161VZB corrected for nucl RBC Auto (Bld) [#/Vol]Leukocytes [#/volume] corrected for nucleated erythrocytes in Blood by Automated coun4.1-10.5FJoint Township District Memorial HospitalLymphocytes Auto (Bld) [#/Vol]Ordered By: Sandip Bunting on 01-55-5902Yywyuijfejq (Bld) [#/Vol]Lymphocytes [#/volume] in Blood by Automated count1.00-4.8[facility] HospitalLymphocytes/100 WBC Auto (Bld)Ordered By: Sandip Bunting on 51-73-3217Rlxqmuftobp/100 WBC (Bld) Lymphocytes/100 leukocytes in Blood by Automated count.[facility] HealthH Auto (RBC) [Entitic mass]Ordered By: Sandip Bunting on 11-63-3366PEU (RBC) [Entitic mass]MCH [Entitic mass] by Automated count27.5-35.2 [facility] HospitalMCHC Auto (RBC) [Mass/Vol]Ordered By: Sandip Bunting on 81-06-3187RPWM (RBC) [Mass/Vol]MCHC [Mass/volume] by Automated count 32.5-35.6FJoint Township District Memorial HospitalMCV Auto (RBC) [Entitic vol]Ordered By: Sandip Bunting on 46-81-0008ALI (RBC) [Entitic vol]MCV [Entitic volume] by Automated count83.5-101[facility] HospitalMonocytes Auto (Bld) [#/Vol]Ordered By: Sandip Bunting on 02-88-2616Qfajujkay (Bld) [#/Vol]Automated blood monocyte count0.0-0.8[facility] HospitalMonocytes/100 WBC Auto (Bld)Ordered By: Sandip Bunting on 42-39-3756Jsqhphehd/100 WBC (Bld) Automated monocyte %.[facility] HospitalNatriuretic peptide B [Mass/Vol]Ordered By: Sandip Bunting on 27-97-5527Ufvoeygompl peptide B (Bld) [Mass/Vol]BNP ser/plasHigh5-100[facility] HospitalNeutrophils Auto (Bld) [#/Vol]Ordered By: Sandip Bunting on 30-63-2504Iqcgwobarkm (Bld) [#/Vol] Neutrophils [#/volume] in Blood by Automated count1.8-7.7FJoint Township District Memorial HospitalNeutrophils/100 WBC Auto (Bld)Ordered By: Sandip Bunting on 55-76-5235Hjjljaaifmn/100 WBC (Bld)Automated neutrophil %.[facility] HospitalNucleated erythrocytes [Presence] in Blood by Automated count Ordered By: Sandip Bunting on 10-63-4710Aycgfcksz RBC Auto Ql (Bld)Nucleated erythrocytes [Presence] in Blood by Automated count0-0.5FJoint Township District Memorial HospitalPlatelet mean volume Auto (Bld) [Entitic vol]Ordered By: Sandip Bunting on 50-83-5827Hcxjsmmn mean volume (Bld) [Entitic vol]Platelet mean volume [Entitic volume] in Blood by Automated count6.6-10.1FJoint Township District Memorial HospitalPlatelets Auto (Bld) [#/Vol]Ordered By: Sandip Bunting on 44-78-4977Yukngnqqq (Bld) [#/Vol]Platelets [#/volume] in Blood by Automated nenfx508-212DmmqvfvnuSalem City HospitalRBC Auto (Bld) [#/Vol]Ordered By: Sandip Bunting on 88-99-4448XWZ (Bld) [#/Vol]Erythrocytes [#/volume] in Blood by Automated countLow3.90-5.60[facility] HospitalWBC Auto (Bld) [#/Vol]Ordered By: Sandip Bunting on 52-89-9233MKY (Bld) [#/Vol]Leukocytes [#/volume] in Blood by Automated count4.1-10.5FJoint Township District Memorial Hospital B-Type Natriuretic Peptideon 35-94-3292Htdnkpzcfzx peptide B (Bld) [Mass/Vol] 216.0 pg/mLHigh5-100The [facility] Physician GroupComment on above:Result Comment: PERFORMED BY:[address] [place], [place] [phone] MEDICAL DIRECTORJAJA CATES M.D. Performed By: #### BNP, CRP, CBC, ESR ####[facility] [address] [place] [address] USABasophils Auto (Bld) [#/Vol]Ordered By: Sandip Bunting on 84-27-0890Khhbtguyt (Bld) [#/Vol]Automated basophil count0.0-0.2 [facility] HospitalBasophils/100 WBC Auto (Bld)Ordered By: Sandip Bunting on 24-58-6096Ltloidyjf/100 WBC (Bld)Automated basophil %.[facility] HospitalC reactive protein [Mass/volume] in Serum or Plasma Ordered By: Sandip Bunting on 94-21-0741ZEB [Mass/Vol]C reactive protein [Mass/volume] in Serum or PlasmaHigh0.0-0.5FJoint Township District Memorial HospitalC- Reactive Proteinon 28-78-6576W-Reactive Protein6.7 mg/dLHigh0.0-0.5[facility] Physician GroupComment on above:Result Comment: PERFORMED BY:[address] [place], [place] [phone] MEDICAL DIRECTORJAJA CATES M.D.Performed By: #### BNP, CRP, CBC, ESR ####[facility] [address] [place] [address] [facility] Complete Blood Count Auto Diffon 34-99-8054Wsizrpiqt (Bld) [#/Vol]0.1 10*3/uL Normal0.0-0.2[facility] Physician GroupComment on above:Performed By: #### BNP, CRP, CBC, ESR ####[place] [address] USABasophils/100 WBC (Bld)0.9 %Normal.[facility] Comment on above:Performed By: #### BNP, CRP, CBC, ESR ####[place] [address] USAEosinophils (Bld) [#/Vol]0.5 10*3/uLHigh0.0-0.45[facility] Physician GroupComment on above:Performed By: #### BNP, CRP, CBC, ESR ####[place] [address] USAEosinophils/100 WBC (Bld)6.4 %Normal.[facility] Physician GroupComment on above:Performed By: #### BNP, CRP, CBC, ESR ####[address] Erythrocyte distribution width (RBC) [Ratio]17.0 %High12.0-14.8The [facility] Hospital Physician GroupComment on above:Performed By: #### BNP, CRP, CBC, ESR ####[place] [address] [place] Hematocrit (Bld) [Volume fraction]26.9 %Low38.8-50.0[facility] Physician GroupComment on above:Performed By: #### BNP, CRP, CBC, ESR ####[place] [address] USAHemoglobin (Bld) [Mass/Vol]9.0 g/dLLow13.0-17.0The [facility] Physician GroupComment on above: Performed By: #### BNP, CRP, CBC, ESR ####[place] [address] USALymphocytes (Bld) [#/Vol]2.1 10*3/uLNormal 1.00-4.8[facility] Physician GroupComment on above:Performed By: #### BNP, CRP, CBC, ESR ####[place] [address] USALymphocytes/100 WBC (Bld)29.5 %Normal.[facility] Comment on above:Performed By: #### BNP, CRP, CBC, ESR ####[place] [address] [facility] (RBC) [Entitic mass]31.4 dwKmnivc20.5-35.2The [facility] Physician GroupComment on above:Performed By: #### BNP, CRP, CBC, ESR ####[place] [address] [facility]V (RBC) [Entitic vol]93.7 jCOssrsf18.5-101The [facility] Physician GroupComment on above:Performed By: #### BNP, CRP, CBC, ESR ####[place] [address] USAMean Corpuscular HGB Conc33.5 g/vDAtsvbu30.5-35.6[facility] Physician GroupComment on above:Performed By: #### BNP, CRP, CBC, ESR ####[place] [address] USAMonocytes (Bld) [#/Vol]0.7 10*3/uL Normal0.0-0.8[facility] Physician GroupComment on above:Performed By: #### BNP, CRP, CBC, ESR ####[place] [address] USAMonocytes/100 WBC (Bld)9.2 %Normal.[facility] Comment on above:Performed By: #### BNP, CRP, CBC, ESR ####[place] [address] USANeutrophils (Bld) [#/Vol]3.9 10*3/uLNormal1.8-7.7The [facility] Physician GroupComment on above:Performed By: #### BNP, CRP, CBC, ESR ####[place] [address] USANeutrophils/100 WBC (Bld)54.0 %Normal.[facility] Physician GroupComment on above:Performed By: #### BNP, CRP, CBC, ESR ####[place] [address] USANRBC% 0.1 /100{WBC}Normal0-0.5[facility] Physician GroupComment on above:Performed By: #### BNP, CRP, CBC, ESR ####[place] [address] USAPlatelet mean volume (Bld) [Entitic vol]7.8 fLNormal 6.6-10.1The [facility] Physician GroupComment on above:Performed By: #### BNP, CRP, CBC, ESR ####[place] [address] USAPlatelets (Bld) [#/Vol]249 10*3/vERnqppd003-320Yrv Person Memorial Hospital Physician GroupComment on above:Performed By: #### BNP, CRP, CBC, ESR ####[place] [address] USARBC (Bld) [#/Vol]2.87 10*6/uLLow3.90-5.60[facility] Physician GroupComment on above:Performed By: #### BNP, CRP, CBC, ESR ####[place] [address] USAWBC (Bld) [#/Vol]7.2 10*3/uLNormal4.1-10.5[facility] Physician GroupComment on above:Performed By: #### BNP, CRP, CBC, ESR ####[place] [address] [place] Eosinophils Auto (Bld) [#/Vol]Ordered By: Sandip Aguirre on 04-23-2024 Eosinophils (Bld) [#/Vol]Automated eosinophil countHigh0.0-0.45[facility] HospitalEosinophils/100 WBC Auto (Bld)Ordered By: Sandip Bunting on 62-52-1151Eawchuovyum/100 WBC (Bld)Automated eosinophil %.[facility] HospitalErythrocyte Sedimentation Rateon 34-45-5165BDH (Bld) [Velocity]95 mm/hHigh0-19[facility] Physician GroupComment on above:Result Comment: PERFORMED BY:[facility] [place], [place] [phone] MEDICAL DIRECTORJAJA CATES M.D. Performed By: #### BNP, CRP, CBC, ESR ####[facility] [place] [address] [facility]ENTERErythrocyte distribution width Auto (RBC) [Ratio]Ordered By: Sandip Bunting on 87-90-1948Pdvifjivavw distribution width (RBC) [Ratio]Erythrocyte distribution width [Ratio] by Automated countHigh 12.0-14.8[facility] HospitalErythrocyte sedimentation rate by Photometric methodOrdered By: Sandip Bunting on 10-50-5376MRB Photometric method (Bld) [Velocity]Erythrocyte sedimentation rate by Photometric methodHigh0-19 [facility] HospitalHematocrit Auto (Bld) [Volume fraction]Ordered By: Sandip Bunting on 72-94-9397Gxieqpupza (Bld) [Volume fraction]Hematocrit [Volume Fraction] of Blood by Automated krslfCjs07.8-50.0[facility] HospitalHemoglobin [Mass/volume] in BloodOrdered By: Sandip Bunting on 80-02-8581Ntabnmbaqo (Bld) [Mass/Vol]Hemoglobin [Mass/volume] in BloodLow 13.0-17.0[facility] HospitalLeukocytes [#/volume] corrected for nucleated erythrocytes in Blood by Automated counOrdered By: Sandip Bunting on 94-28-9312NDB corrected for nucl RBC Auto (Bld) [#/Vol]Leukocytes [#/volume] corrected for nucleated erythrocytes in Blood by Automated coun4.1-10.5FJoint Township District Memorial HospitalLymphocytes Auto (Bld) [#/Vol]Ordered By: Sandip Bunting on 38-71-1558Uvwzhikxizu (Bld) [#/Vol]Lymphocytes [#/volume] in Blood by Automated count1.00-4.8[facility] HospitalLymphocytes/100 WBC Auto (Bld)Ordered By: Sandip Bunting on 68-51-1784Gipaxaizzmz/100 WBC (Bld) Lymphocytes/100 leukocytes in Blood by Automated count.[facility]H Auto (RBC) [Entitic mass]Ordered By: Sandip Bunting on 55-91-6503XGH (RBC) [Entitic mass]MCH [Entitic mass] by Automated count27.5-35.2 [facility] HealthHC Auto (RBC) [Mass/Vol]Ordered By: Sandip Bunting on 52-65-5643FCQH (RBC) [Mass/Vol]MCHC [Mass/volume] by Automated count 32.5-35.6FJoint Township District Memorial HospitalMCV Auto (RBC) [Entitic vol]Ordered By: Sandip Bunting on 76-68-1136HEK (RBC) [Entitic vol]MCV [Entitic volume] by Automated count83.5-101[facility] HospitalMonocytes Auto (Bld) [#/Vol]Ordered By: Sandip Bunting on 98-91-8592Cauykitoa (Bld) [#/Vol]Automated blood monocyte count0.0-0.8[facility] HospitalMonocytes/100 WBC Auto (Bld)Ordered By: Sandip Bunting on 04-38-2413Cxdrsqxtl/100 WBC (Bld) Automated monocyte %.[facility] HospitalNatriuretic peptide B [Mass/Vol]Ordered By: Sandip Bunting on 72-24-6290Mrzcbycavhc peptide B (Bld) [Mass/Vol]BNP ser/plasHigh5-100[facility] HospitalNeutrophils Auto (Bld) [#/Vol]Ordered By: Sandip Bunting on 43-07-6027Jkfjdqsylox (Bld) [#/Vol] Neutrophils [#/volume] in Blood by Automated count1.8-7.7FJoint Township District Memorial HospitalNeutrophils/100 WBC Auto (Bld)Ordered By: Sandip Bunting on 88-10-5302Kvutyshvfix/100 WBC (Bld)Automated neutrophil %.[facility] CenterNucleated erythrocytes [Presence] in Blood by Automated count Ordered By: Sandip Bunting on 19-75-7919Ckihdmlvj RBC Auto Ql (Bld)Nucleated erythrocytes [Presence] in Blood by Automated count0-0.5FJoint Township District Memorial HospitalPlatelet mean volume Auto (Bld) [Entitic vol]Ordered By: Sandip Bunting on 13-29-2390Xqzshred mean volume (Bld) [Entitic vol]Platelet mean volume [Entitic volume] in Blood by Automated count6.6-10.1FJoint Township District Memorial HospitalPlatelets Auto (Bld) [#/Vol]Ordered By: Sandip Bunting on 76-43-7488Plocarpet (Bld) [#/Vol]Platelets [#/volume] in Blood by Automated -756TzlwqfsjySalem City HospitalRBC Auto (Bld) [#/Vol]Ordered By: Sandip Bunting on 53-50-7956VNT (Bld) [#/Vol]Erythrocytes [#/volume] in Blood by Automated countLow3.90-5.60[facility] HospitalWBC Auto (Bld) [#/Vol]Ordered By: Sandip Bunting on 84-59-5740XKK (Bld) [#/Vol]Leukocytes [#/volume] in Blood by Automated count4.1-10.5FJoint Township District Memorial Hospital .eGFRon 26-11-8476Yglztlemi GFR57 mL/min/1.73m?Low>=60[facility] Medical CenterComment on above:Result Comment: [facility] Laboratories have implemented the eGFR calculation approach that does not havea coefficient for race and that conforms to [...] maximum of SCr/? or 1 Age = yearsPerformed By: #### MG #### [address] [address]Mgjcl Metabolic Profileon 79-66-5012Fjlhm gap [Moles/Vol]8 mmol/LNormal4-12[facility] Medical CenterComment on above:Performed By: #### CD:[id number] #### [address] [address]Ktpbdgt [Mass/Vol]8.6 mg/dLNormal8.5-10.3BWood County HospitalComment on above:Performed By: #### CD:[id number] #### [address] [address]Rozkusdz [Moles/Vol]96 mmol/NYyv65-088UwtxgghyxCincinnati Children'S Hospital Medical CenterComment on above:Performed By: #### CD:[id number] #### [address] [address]JO6 [Moles/Vol]27 mmol/BVhulbe22-91OnoaxoueeCincinnati Children'S Hospital Medical CenterComment on above:Performed By: #### CD:[id number] #### [address] [address]Aihvqkctao [Mass/Vol]1.25 mg/dLHigh0.61-1.24[facility] Medical CenterComment on above:Performed By: #### CD:[id number] #### [address] [address]Pndggwo [Mass/Vol]83 mg/pGOycnhx82-91RpvqkplqyCincinnati Children'S Hospital Medical CenterComment on above:Performed By: #### CD:[id number] #### [address] [address]Glkbfjyyy [Moles/Vol]3.7 mmol/LNormal3.4-4.8BWood County HospitalComment on above:Performed By: #### CD:[id number] #### [address] [address]Emexfq [Moles/Vol]131 mmol/NBpo700-469KqgzwuvquCincinnati Children'S Hospital Medical CenterComment on above:Performed By: #### CD:[id number] #### [address] [address]Uqhw nitrogen [Mass/Vol]19 mg/dLNormal8-26[facility] Medical CenterComment on above:Performed By: #### CD:[id number] #### [address] [address]Wgrb nitrogen/Creatinine [Mass ratio]15.2 mg/ecPoctis29.0-20.0 [facility] Medical CenterComment on above:Performed By: #### CD:[id number] #### [address] [address]O Bldon 04-20-2024 Bld Final No growth at 5 days.NormalCincinnati Children'S Hospital Medical CenterComment on above: Performed By: #### BLDC ####[address] [id number] By: #### MARISELA #### [address] [id number] Sterile BSon 04-20-2024 Sterile BS Final Light Growth of Pseudomonas aeruginosa isolated ORGANISM PA SUSCEPTIBILITY ORGANISM ID: 1 ANTIBIOTIC INTERPRETATION BELLA STATUS POS Pseudomonas aeruginosa Ceftazidime S 4 V Ciprofloxacin I 1 V Levofloxacin R 4 V Meropenem S 1 V Piperacillin/Tazobactam S 16 V SUSCEPTIBILITY ORGANISM ID: 1 ANTIBIOTIC INTERPRETATION BELLA STATUS POS Pseudomonas aeruginosa Cefepime S VNormalCincinnati Children'S Hospital Medical CenterComment on above:Performed By: #### :[id number] #### [address] [address]NLN w/ Diffon [id number] distribution width (RBC) [Ratio]17.6 %High11.6-14.8BWood County HospitalComment on above: Performed By: #### CBC ####[address] [address]Tqorabbvdv (Bld) [Volume fraction]27.2 %Low41.0-53.0 [facility] Medical CenterComment on above:Performed By: #### CBC ####[address] [address]Zppmrlvysg (Bld) [Mass/Vol]9.1 g/dLLow13.5-17.5BWood County HospitalComment on above:Performed By: #### CBC ####[address] [address]PTC (RBC) [Entitic mass]31.1 vqMwoayr26.0-35.0[facility] Medical CenterComment on above:Performed By: #### CBC ####[address] [address]FHEW41.5 %Btcymp34.0-37.0 [facility] Medical CenterComment on above:Performed By: #### CBC ####[address] [address]DWO (RBC) [Entitic vol]92.9 aDKldxjc24.0-100.0[facility] Medical CenterComment on above:Performed By: #### CBC ####[address] [address]Xckjfjgr494 x10*3/lgJHjcgpo537-471XmticoyazCincinnati Children'S Hospital Medical CenterComment on above:Performed By: #### CBC ####[address] [address]Fscddala mean volume (Bld) [Entitic vol]7.0 fL Normal6.7-10.6BWood County HospitalComment on above:Performed By: #### CBC ####[address] [address]NWR1.93 x10*6/mcLLow4.30-5.80[facility] Medical CenterComment on above:Performed By: #### CBC ####[address] [address]MBI9.0 x10*3/mcLNormal4.5-11.0[facility] Medical CenterComment on above:Performed By: #### CBC ####[address] [address]Bzsxxpvert Progress Noteon [id number] Progress NoteSubjective PCP: Opal Ga DO ([place], [place]) Cardio: [facility]re [facility] [place] [place] 83M with permanent AF, CHF, CKD, hypercholesterolemia transferred from [facility] for continued treatment of lower extremity edema and perioperative cardiology evaluation. Lower extremity edema suspected of being more related to chronic lymphedema than decompensated heart failure. Interval History: - POD #3 lumbar I&D with wound closure finding a small seroma - No significant events overnight - Fluid balance -3.3 L yesterday and -7.5 L since admission to [facility] (-4.7 L at [facility] prior to transfer) - Denies chest pain, dyspnea, palpitations, or lightheadedness Cardiac Testing Echocardiography > 04/13/24: (Limited) EF 45-50%, mild RV enlargement with mildly reduced systolic function, marked LAE, moderate MARCIA ([facility]) Objective Vitals & Measurements T: 36.7 ?C (Oral) HR: 66 (Peripheral) RR: 16 BP: 90/53 SpO2: 98% HT: 167 cm WT: 84.9 kg BMI: 29.26 Lab Results Test Name Test Result Date/Time Hgb 9.1 g/dL (Low) 04/20/2024 06:27 EST Platelet 201 x10 Sodium Lvl 131 mmol/L (Low) 04/20/2024 06:27 EST Potassium Lvl 3.7 mmol/L 04/20/2024 06:27 EST BUN 19 mg/dL 04/20/2024 06:27 EST Creatinine Lvl 1.25 mg/dL (High) 04/20/2024 06:27 EST Estimated GFR 57 mL/min/1.73m? (Low) 04/20/2024 06:27 EST Magnesium Lvl 2.1 mg/dL 04/20/2024 06:27 EST Physical Exam Constitutional: No acute distress Neck: No JVD Respiratory: Respirations even and non-labored, clear to auscultation bilaterally Cardiovascular: Irregularly irregular rhythm with normal S1 and S2 and no murmurs, SCDs in place, no pedal edema bilaterally Extremities: No cyanosis Psych: Normal orientation Medications Inpatient acetaminophen, 650 mg, Oral, q6hr, PRN allopurinol, 300 mg, Oral, Daily atorvastatin, 40 mg, Oral, HS (at bedtime) bumetanide, 1 mg, Oral, Daily carvedilol, 6.25 mg, Oral, BID Colace, 100 mg, Oral, BID Dulcolax Laxative, 10 mg, Oral, Daily, PRN Dulcolax Laxative, 10 mg= 1 supp, Rectal, Daily, PRN Eliquis, 5 mg, Oral, BID Eszopiclone 3 mg tablets, 1 tablet, Oral, HS (at bedtime) Fleet Enema 7 g-19 g rectal enema, 133 mL, Rectal, Daily, PRN folic acid, 1 mg, Oral, Daily Klor-Con M20, 20 mEq, Oral, Daily levothyroxine, 150 mcg, Oral, Daily magnesium oxide, 400 mg, Oral, Daily meropenem + Sodium Chloride 0.9% intravenous solution 100 mL + sterile water 40 mL MiraLax, 17 g= 1 EA, Oral, Daily morphine, 2 mg= 1 mL, IV Push, q3hr, PRN nystatin 100,000 units/g topical powder, 1 rowena, Topical, BID Percocet 5/325 oral tablet, 1 tabs, Oral, q6hr, PRN traZODone, 50 mg, Oral, HS (at bedtime), PRN Zofran, 4 mg= 2 mL, IV Push, d2ng-Gtqnzjmv Times, PRN Assessment/Plan 1. Chronic HFmrEF (systolic heart failure) - Heart failure is compensated - Continue bumetanide 1 mg daily - Continue carvedilol 6.25 mg BID 2. Chronic lymphedema - Patient has used bilateral lower extremity lymphedema pumps nightly for years - Continue bumetanide 1 mg daily 3. Permanent atrial fibrillation on anticoagulants - Ventricular rates are controlled on current medical therapy - Continue carvedilol 6.25 mg BID - Continue Eliquis 5 mg BID 4. Lumbar paraspinal fluid collection - POD #3 lumbar I&D with wound closure OK to discharge at your discretion from a cardiac perspective. Follow up with primary watch crystal edge grinder in [place], [place], after discharge. Will sign off. Medical Decision Making Number of Problems Addressed: Moderate (2 stable chronic problems [CHF, AF]) Data Reviewed/Analyzed: Moderate (reviewed results of at least 3 unique lab tests) Risk of Complications, Morbidity, or Mortality: Moderate (prescription drug management) Electronically signed by Frankie Dallas DO 04/20/24 13:45 [facility] Dietary Progress Noteon [id number] Progress NotePt. screened for LOS. Pt. with dx of Lymphedema, Chronic Heart Failure, A-Fib, Dehiscence of Surgical Wound. Pt. with PMHx of Lymphedema, CKD and Chronic Heart Failure. Pt. is POD#1 Lumbar I&D; ortho following. Labs reviewed; Na: 131(L), Creatinine: 1.25(H), eGFR: 57(L). Meds reviewed and include: Bumex, Vitamins/Minerals and Bowel Regimen. Current BW (04/20) 84.9 reflects significant weight gain x5 days since admit (+3.3kg/4.0%). Weight felecia could be r/t good PO intakes and/or r/t fluid retention (+1 pitting and +2 pitting edema). Last recorded BM 04/20; no GI sx reported. Skin issues present; skin care per nursing. Regular diet in place with good appetite and PO intakes reported (100% on average). Current nutrition rx remains appropriate. Pt. with discharge orders in place. Will continue to monitor appropriately with continued stay.&D; ortho following. Labs reviewed; Na: 131(L),Creatinine: 1.25(H), eGFR: 57(L). Meds reviewed and include: Bumex, Vitamins/Minerals and Bowel Regimen. Current BW (04/20) 84.9 reflects significant weight gain x5 days since admit (+3.3kg/4.0%). Weight felecia could be r/t good PO intakes and/or r/t fluid retention (+1 pitting and +2 pitting edema). Last recorded BM 04/20; no GI sx reported. Skin issues present; skin care per nursing. Regular diet in place with good appetite and PO intakes reported (100% on average). Current nutrition rx remains appropriate. Pt. with discharge orders in place. Will continue to monitor appropriately with continued stay. Electronically signed by Dolly Escobedo 04/20/24 13:26 ESTNormalBlMagruder HospitalDiff Autoon [id number] Absolute0.0 x10*3/mcLNormal0.0-0.2BWood County Hospital Comment on above:Performed By: #### .Automated Diff ####[address] [address]Hybxdzakg/100 WBC (Bld)0.6 % Normal0.0-1.2BWood County HospitalComment on above:Performed By: #### .Automated Diff ####[address] [address]Clx Absolute0.5 x10*3/mcLHigh0.0-0.4BCleveland Clinic Fairview Hospital SystemComment on above:Performed By: #### .Automated Diff ####[address] [address]Mjhkgnkvcvl/100 WBC (Bld)8.7 %High0.0-6.1 [facility] SystemComment on above:Performed By: #### .Automated Diff ####[address] [address]Rvdow Absolute1.9 x10*3/mcLNormal1.0-4.8BCleveland Clinic Fairview Hospital SystemComment on above:Performed By: #### .Automated Diff ####[address] [address]Ygwdtgjyqhw/100 WBC (Bld)32.3 %Ktpkgc30.2-40.8 [facility] Medical CenterComment on above:Performed By: #### .Automated Diff ####[address] [address]Vrfb Absolute0.5 x10*3/mcLNormal0.3-1.1BCleveland Clinic Fairview Hospital SystemComment on above:Performed By: #### .Automated Diff ####[address] [address]Rjolrissz/100 WBC (Bld)9.0 %Normal4.7-13.9BCleveland Clinic Fairview Hospital SystemComment on above:Performed By: #### .Automated Diff ####[address] [address]Yfdbqc Absolute3.0 x10*3/mcLNormal1.8-7.7BCleveland Clinic Fairview Hospital SystemComment on above:Performed By: #### .Automated Diff ####[address] [address]Ortwhl Auto49.4 %Jvszij57.2-70.8BWood County HospitalComment on above:Performed By: #### .Automated Diff ####[facility] [place], [place] [address]Kgioyxhwq Clinical Summary on 25-55-2012Fhobowhtf Clinical SummaryBlHighline Community [facility] [address] [place] [address] [phone] [address] [phone] Clinical Summary Person Information Name: Tavo Wallis Age: 83 Years : 1940 Sex: Male PCP: Tavo Mcintyre DO Marital Status: Phone: PCP: Race: White Ethnicity: Not or Language: Bermudian Visit Id: Visit Reason: CHF exacerbation Speciality: Acuity: Enc Type: Inpatient Med Service: Medicine-General Arrival: 04/15/2024 03:52:56 Discharge: Dispo Type: Address: [address] [id number] Preferred Communication Mode: Preferred Language: Bermudian Discharge Diagnosis: 1:Postoperative wound infection; 2:Dehiscence of surgical wound; 3:Atrial fibrillation, permanent; 4:Current use of anticoagulants; 5:Lymphedema; 6:Chronic systolic heart failure; 7:Postoperative urinary retention; 8:Preoperative cardiovascular examination Discharged To: half-way facility Mode of Discharge Transportation: Home Treatments: Devices/Equipment: Professional Skilled Services: Special Services and Community Resources: Discharge Orders: Activity Restrictions Follow up 04/20/24 13:16:00 EST, Provider: Tye Pompa MD, 1 to 2 weeks Follow up 04/20/24 13:17:00 EST, Provider: [facility], Randi [place], 1 week Follow up with Primary Care Provider (PCP) 04/18/24 11:08:00 EST, 1 to 2 weeks Longterm Facility Certification 04/18/24 11:08:00 EST, Skilled, I certify residential facility stay is anticipated to be LESS than 30 days. Provider to Resume Care: Major TIDWELL to follow., 04/18/24 11:08:00 EST, 02/12/25 11:08:00 EST Tube Feeding and Supplements Home Health Consult and Ambulatory Referrals Treatment and Wound Care Compression Drain Care 04/17/24 8:45:00 EST Coughing/Deep Breathing 04/15/24 6:00:00 EST, Stop date 04/15/24 6:00:00 EST, Encourage patient to perform Q1 hour while awake Indwelling Urinary Catheter Continuation 04/16/24 6:00:00 EST, Daily, -1 Midline Catheter Insertion 04/20/24 8:00:00 EST, Postoperative wound infection, 04/20/24 8:00:00 EST Neurological Checks 04/17/24 8:45:00 EST, Stop date 04/17/24 8:45:00 EST, With vital signs Peripheral IV Insert and Maintain 04/15/24 6:00:00 EST, May continue same site if no signs or symptoms of infection and unable to access new site., 04/15/24 6:00:00 EST Skin Care: Skin Integrity: Intact Skin Abnormalities: Bruising Lines/Devices/BM Information: Urinary Catheter Type: Indwelling/Continuous Urinary Catheter Size: Urinary Catheter Activity Date: Present on admit from offsite location Pre-insertion Indwelling Catheter Education: Ostomy Type: GI Tube Type: GI Tube Size: GI Tube Activity Date: Date of Last Bowel Movement: 04/20/24 Functional Status: Sensory Deficits: None Valuables/Belongings: Clothes, Electronics, Wallet/Purse/Money, Other: shoes, socks, back brace, coat, clothes, glasses, hat History of Falls Within 6 Months: Yes High Fall Risk Interventions: All low and moderate risk fall interventions, Red high fall risk indicated outside patient room, Yellow gown and red nonskid socks, Bed/chair alarm activated, Best/Direct visual access used, Remain with patient during toileting, Patient transported wit... Activities of Daily Living: ADLs: Moderate assistance Bathing ADL: Requires assistance (1) Dressing ADL: Requires assistance (1) Personal Care Provided: Assisted with gown, Pratima care Bed Mobility Assistance: Two person assistance Ambulation Assistance: Two person assistance Musculoskeletal Abnormality: Gait: Unable to assess Assistive Devices: Gait belt, Walker Special Orthopedic Devices: Brace Current Level of Assistance for Self Care/Mobility: Cognitive Status: Orientation Assessment: Oriented x 4 Level of Consciousness: Alert Characteristics of Speech: Clear Aspiration Risk: None Affect/Behavior: Appropriate, Calm, Cooperative Smoking Status Former smoker, quit more than 5 years ago Laboratory or Other Results This Visit (last charted value for your 04/15/2024 visit) Hematology 04/20/2024 6:27 AM WBC: 6.0 x10 RBC: 2.93 x10 Neutro Auto: 49.4 % -- Normal range between ( 47.2 and 70.8 ) Lymph Auto: 32.3 % -- Normal range between ( 27.2 and 40.8 ) [place] Auto: 9.0 % -- Normal range between ( 4.7 and 13.9 ) Eos Auto: 8.7 % -- Normal range between ( 0.0 and 6.1 ) Basophil Auto: 0.6 % -- Normal range between ( 0.0 and 1.2 ) Baso Absolute: 0.0 x10 MCV: 92.9 fL -- Normal range between ( 80.0 and 100.0 ) MCHC: 33.5 % -- Normal range between ( 31.0 and 37.0 ) Lymph Absolute: 1.9 x10 Hct: 27.2 % -- Normal range between ( 41.0 and 53.0 ) [place] Absolute: 0.5 x10 MCH: 31.1 pg -- Normal range between ( 27.0 and 35.0 ) Neutro Absolute: 3.0 x10 Hgb: 9.1 g/dL -- Normal range between ( 13.5 and 17.5 ) Me (more content not included)...NormalCincinnati Children'S Hospital Medical CenterMagnesiumon 37-08-2471Elxngxohg [Mass/Vol]2.1 mg/dLNormal1.7-2.4BWood County HospitalComment on above:Performed By: #### MG #### [address] [address]Mrunjienby Progress Noteon 02-52-1791Rsqwkazrpd Progress Note Subjective POD#1 lumbar I&D. Patient laying in bed. Talking to his daughter on the phone. Drain unclotted. Objective Drain 0ml Vitals & Measurements T: 36.7 ?C (Oral) HR: 73 (Peripheral) RR: 16 BP: 110/68 SpO2: 93% HT: 167 cm WT: 84.9 kg BMI: 29.26 Additional Vitals No qualifying data available. Lab Results Microbiology - Current Encounter Anaerobic Culture: Auth (Verified) NEG (04/17/24) Culture Blood: Auth (Verified) NEG (04/15/24) Culture Blood: Auth (Verified) NEG (04/15/24) Culture Strile Body Sites: Modified POS Critical (04/17/24) Diagnostic Results Diagnostic Radiology XR Chest 1 View 04/18/24 11:13:05 IMPRESSION: Bibasilar airspace opacities. Signed By: Guy Boland MD Physical Exam Drain in place Motor 07/09 NVI Drsg C/D/I Medications Inpatient acetaminophen, 650 mg, Oral, q6hr, PRN acetaminophen, 650 mg, Oral, q6hr, PRN allopurinol, 300 mg, Oral, Daily atorvastatin, 40 mg, Oral, HS (at bedtime) bumetanide, 1 mg, Oral, Daily carvedilol, 6.25 mg, Oral, BID Colace, 100 mg, Oral, BID Dulcolax Laxative, 10 mg, Oral, Daily, PRN Dulcolax Laxative, 10 mg= 1 supp, Rectal, Daily, PRN Eliquis, 5 mg, Oral, BID Eszopiclone 3 mg tablets, 1 tablet, Oral, HS (at bedtime) Fleet Enema 7 g-19 g rectal enema, 133 mL, Rectal, Daily, PRN folic acid, 1 mg, Oral, Daily Klor-Con M20, 20 mEq, Oral, Daily levothyroxine, 150 mcg, Oral, Daily magnesium oxide, 400 mg, Oral, Daily meropenem + Sodium Chloride 0.9% intravenous solution 100 mL + sterile water 40 mL MiraLax, 17 g= 1 EA, Oral, Daily morphine, 2 mg= 1 mL, IV Push, q3hr, PRN naloxone, 0.4 mg= 1 mL, IV Push, q2min, PRN Normal Saline Flush 0.9% injectable solution, 10 mL, IV Push, As Indicated, PRN Normal Saline Flush 0.9% injectable solution, 10 mL, IV Push, BID nystatin 100,000 units/g topical powder, 1 rowena, Topical, BID Percocet 5/325 oral tablet, 1 tabs, Oral, q6hr, PRN traZODone, 50 mg, Oral, HS (at bedtime), PRN Zofran, 4 mg= 2 mL, IV Push, u7xh-Rnpmsiht Times, PRN Assessment/Plan 1. Postoperative wound infection 2. Dehiscence of surgical wound 3. Atrial fibrillation, permanent 4. Current use of anticoagulants 5. Lymphedema 6. Chronic systolic heart failure 7. Postoperative urinary retention 8. Preoperative cardiovascular examination Plan: 1. Continue drain. Remove drain before discharge. 2. ID consulted and antibiotics ordered 3. Discharge pending. Ok for discharge from ortho spine standpoint Electronically signed by Mani Hannon PA-C 04/20/24 08:08 [facility] Progress Note-Nurseon [id number] Note-Xbvsq87m 10cm single lumen powerglide midline catheter inserted in the left upper arm. Sterile field main tained. no complications noted. Patient tolerated well. lot # [id number] Electronically signed by Jonelle Wall 04/20/24 11:55 [facility].eGFRon 50-28-9434Tfuvjjolx GFR52 mL/min/1.73m?Low>=60[facility] Comment on above:Result Comment: [facility] Laboratories have implemented the eGFR calculation approach that does not havea coefficient for race and that conforms to [...] maximum of SCr/? or 1 Age = yearsPerformed By: #### EGFR ####[address] [address]Slgim Metabolic Profileon 57-20-0504Zcqje gap [Moles/Vol] 6 mmol/LNormal4-12[facility] Medical CenterComment on above:Performed By: #### MG #### [address] [address]Eqpiyxk [Mass/Vol]8.5 mg/dLNormal8.5-10.3BWood County HospitalComment on above:Performed By: #### MG #### [address] [address]Axyryjyx [Moles/Vol]97 mmol/WDmz60-877WcjhbjxiwCincinnati Children'S Hospital Medical CenterComment on above:Performed By: #### MG #### [address] [address]TO3 [Moles/Vol]27 mmol/IHxvkkw19-71DprksizvcCincinnati Children'S Hospital Medical CenterComment on above:Performed By: #### MG #### [address] [address]Gxbbhximvr [Mass/Vol]1.37 mg/dLHigh0.61-1.24[facility] Medical CenterComment on above:Performed By: #### MG #### [address] [address]Fniqczz [Mass/Vol]94 mg/sVYmqcpe15-20KdlifozmzCincinnati Children'S Hospital Medical CenterComment on above:Performed By: #### MG #### [address] [address]Wancchbsc [Moles/Vol]3.8 mmol/LNormal3.4-4.8BWood County HospitalComment on above:Performed By: #### MG #### [address] [address]Smhngf [Moles/Vol]130 mmol/UNle153-422OkivynwfkCincinnati Children'S Hospital Medical CenterComment on above:Performed By: #### MG #### [address] [address]Izwf nitrogen [Mass/Vol]20 mg/dLNormal8-26[facility] Medical CenterComment on above:Performed By: #### MG #### [address] [address]Mprt nitrogen/Creatinine [Mass ratio]14.6 mg/uqLjddti98.0-20.0 [facility] Medical CenterComment on above:Performed By: #### MG #### [address] [address] ANAon 04-19-2024 KG Final No anaerobic growth after 72 hrs.NormalCincinnati Children'S Hospital Medical CenterComment on above:Performed By: #### CD:[id number] #### [address] [address]OAS w/ Diffon [id number] distribution width (RBC) [Ratio]18.1 %High11.6-14.8BWood County HospitalComment on above: Performed By: #### CD:[id number] #### [address] [address]Toltrqdtit (Bld) [Volume fraction]27.4 %Low41.0-53.0[facility] Medical CenterComment on above:Performed By: #### CD:[id number] #### [address] [address]Artlgomngh (Bld) [Mass/Vol]9.3 g/dLLow13.5-17.5BWood County HospitalComment on above:Performed By: #### CD:[id number] #### [address] [address]EBC (RBC) [Entitic mass]31.4 zvBecdlr15.0-35.0[facility] Medical CenterComment on above:Performed By: #### CD:[id number] #### [address] [address]HVOE81.0 %Cwreri16.0-37.0[facility] Medical CenterComment on above:Performed By: #### CD:[id number] #### [address] [address]KSR (RBC) [Entitic vol]92.4 jGXkpenm14.0-100.0[facility] Medical CenterComment on above:Performed By: #### CD:[id number] #### [address], [place] [address]Yousccix035 x10*3/tyJTomigc286-193CmclewgroCincinnati Children'S Hospital Medical CenterComment on above:Performed By: #### CD:[id number] #### [address] [address]hoff mean volume (Bld) [Entitic vol]7.2 fLNormal6.7-10.6 [facility] Medical CenterComment on above:Performed By: #### CD:[id number] #### [address], [place] [address]UWY3.96 x10*6/mcLLow4.30-5.80[facility] Comment on above:Performed By: #### CD:[id number] #### [address], [place] [address]CAE7.9 x10*3/mcLNormal4.5-11.0[facility] Comment on above:Performed By: #### CD:[id number] #### [address] [address]Xvav Autoon 43-96-7543Qyep Absolute0.0 x10*3/mcLNormal0.0-0.2 [facility] Medical CenterComment on above:Performed By: #### MG #### [address] [address]Ypjiytqmz/100 WBC (Bld)0.5 %Normal0.0-1.2BWood County HospitalComment on above:Performed By: #### MG #### [address] [address]Wgx Absolute0.4 x10*3/mcLNormal0.0-0.4BWood County HospitalComment on above:Performed By: #### MG #### [address] [address]Lqrhrbbvopt/100 WBC (Bld)5.9 %Normal0.0-6.1BWood County HospitalComment on above:Performed By: #### MG #### [address] [address]Qmfzx Absolute2.2 x10*3/mcLNormal1.0-4.8BWood County HospitalComment on above:Performed By: #### MG #### [address] [address]Pbpksrciqwx/100 WBC (Bld)32.3 %Sjeqyi85.2-40.8BWood County HospitalComment on above:Performed By: #### MG #### [address] [address]Wbqo Absolute0.8 x10*3/mcLNormal0.3-1.1BWood County HospitalComment on above:Performed By: #### MG #### [address] [address]Ichtleklg/100 WBC (Bld)11.2 %Normal4.7-13.9BWood County HospitalComment on above:Performed By: #### MG #### [facility] [address] [place], [place] [address]Rvpgan Absolute3.5 x10*3/mcLNormal1.8-7.7BWood County HospitalComment on above:Performed By: #### MG #### [facility] [address] [place], [place] [address]Bytfkp Auto50.1 %Tymhyi68.2-70.8BWood County Hospital Comment on above:Performed By: #### MG #### [facility] [address] [place], [place] [address]Pvakyhmbpg Disease Progress Noteon 48-85-4710Gakgfwmdvj Disease Progress NoteSubjective Overall feeling okay. No fever or chills. Drain is in place. Still not walking around too much. Hoping to go to a rehab for while to gain strength. Review of Systems Review of system otherwise negative. Objective Vitals & Measurements T: 36.4 ?C (Oral) HR: 72 (Peripheral) RR: 16 BP: 104/64 SpO2: 97% HT: 167 cm WT: 89.8 kg BMI: 29.26 Additional Vitals No qualifying data available. Lab Results Test Name Test Result Date/Time WBC 6.9 x10 Hgb 9.3 g/dL (Low) 04/19/2024 06:03 EST Platelet 178 x10 Sodium Lvl 130 mmol/L (Low) 04/19/2024 06:03 EST Potassium Lvl 3.8 mmol/L 04/19/2024 06:03 EST CO2 27 mmol/L 04/19/2024 06:03 EST Glucose Lvl 94 mg/dL 04/19/2024 06:03 EST BUN 20 mg/dL 04/19/2024 06:03 EST Creatinine Lvl 1.37 mg/dL (High) 04/19/2024 06:03 EST Microbiology - Current Encounter Anaerobic Culture: Auth (Verified) NEG (04/17/24) Culture Strile Body Sites: Auth (Verified) POS Critical (04/17/24) Diagnostic Results Diagnostic Radiology XR Chest 1 View 04/18/24 11:13:05 IMPRESSION: Bibasilar airspace opacities. Signed By: Guy Boland MD Physical Exam Vital signs okay. No acute distress. Back wound drain still in place. 50 mL output yesterday 45 so far today. Good urine output today. Assessment/Plan 1. Postoperative wound infection Pseudomonas isolated resistant to oral antibiotic. Will plan on meropenem outpatient for couple weeks. Midline ordered. Spoke with patient's daughter who is power of admitted attorneys. CRF filled out. Ordered: Midline Catheter Insertion 2. Dehiscence of surgical wound 3. Atrial fibrillation, permanent 4. Current use of anticoagulants 5. Lymphedema 6. Chronic systolic heart failure 7. Postoperative urinary retention 8. Preoperative cardiovascular examination Electronically signed by Tye Pompa MD 04/19/24 20:32 ESTNormalCincinnati Children'S Hospital Medical CenterMagnesiumon [id number] [Mass/Vol]2.1 mg/dLNormal1.7-2.4 [facility] Medical CenterComment on above:Performed By: #### CBC #### [place] [address].eGFRon [id number] GFR48 mL/min/1.73m?Low>=60[facility] Medical CenterComment on above:Result Comment: [facility] Laboratories have implemented the eGFR calculation approach that does not havea coefficient for race and that conforms to [...] maximum of SCr/? or 1 Age = yearsPerformed By: #### CBC #### [address] [address]Gtgug Metabolic Profileon 11-56-7189Ejvok gap [Moles/Vol]8 mmol/LNormal4-12[facility] Medical CenterComment on above:Performed By: #### MG #### [address] [address]Vlmznhq [Mass/Vol]8.3 mg/dLLow8.5-10.3BWood County HospitalComment on above:Performed By: #### MG #### [address] [address]Oguxfgdt [Moles/Vol]97 mmol/VYqo05-785QchhmakrzCincinnati Children'S Hospital Medical CenterComment on above:Performed By: #### MG #### [address] [address]GN4 [Moles/Vol]27 mmol/WSdmcxx18-09GwuhlwfhzCincinnati Children'S Hospital Medical CenterComment on above:Performed By: #### MG #### [address] [address]Cbozwdxils [Mass/Vol]1.45 mg/dLHigh0.61-1.24[facility] Medical CenterComment on above:Performed By: #### MG #### [address] [address]Qxjlsrj [Mass/Vol]87 mg/dRTdugon30-90LmsxehjlfCincinnati Children'S Hospital Medical CenterComment on above:Performed By: #### MG #### [address] [address]Swyxackha [Moles/Vol]3.9 mmol/LNormal3.4-4.8BWood County HospitalComment on above:Performed By: #### MG #### [address] [address]Geczyh [Moles/Vol]132 mmol/GHqp389-307OpayqpehfCincinnati Children'S Hospital Medical CenterComment on above:Performed By: #### MG #### [address] [address]Xtxi nitrogen [Mass/Vol]19 mg/dLNormal8-26[facility] Medical CenterComment on above:Performed By: #### MG #### [address] [address]Zoim nitrogen/Creatinine [Mass ratio]13.1 mg/wzAjzpex94.0-20.0 [facility] Medical CenterComment on above:Performed By: #### MG #### [address] [address]NUR w/ Diffon 04-24-6940Kczmvehqzga distribution width (RBC) [Ratio]18.1 %High11.6-14.8BWood County HospitalComment on above: Performed By: #### MG #### [address] [address]Eokhvlpgcq (Bld) [Volume fraction]26.8 %Low41.0-53.0[facility] Medical CenterComment on above:Performed By: #### MG #### [address] [address]Ldwgwjhopq (Bld) [Mass/Vol]8.9 g/dLLow13.5-17.5BWood County HospitalComment on above:Performed By: #### MG #### [address] [address]VFM (RBC) [Entitic mass]30.6 tdQflvxd65.0-35.0[facility] Medical CenterComment on above:Performed By: #### MG #### [address] [address]OLQX06.1 %Vzlzgr73.0-37.0[facility] Medical CenterComment on above:Performed By: #### MG #### [address] [address]NLC (RBC) [Entitic vol]92.6 iHXeegmt35.0-100.0[facility] Medical CenterComment on above:Performed By: #### MG #### [address] [address]Kcasfuir549 x10*3/hrDTqhihd489-742XenamczfgCincinnati Children'S Hospital Medical CenterComment on above:Performed By: #### MG #### [address] [address]Zstclhnm mean volume (Bld) [Entitic vol]6.9 fLNormal6.7-10.6 [facility] Medical CenterComment on above:Performed By: #### MG #### [address] [address]GFN7.90 x10*6/mcLLow4.30-5.80[facility] Comment on above:Performed By: #### MG #### [address] [address]RKZ2.5 x10*3/mcLNormal4.5-11.0[facility] Comment on above:Performed By: #### MG #### [address] [address]DNIyr 48-97-7007GDK97.60 mg/dLHigh0.00-0.75[facility] Medical CenterComment on above:Result Comment: CRP measurement is useful for assessment of non-specific INFLAMMATORY RESPONSE to infection or injury AND is a sensitive MARKER of ACUTE INFLAMMATION including CARDIAC RISK ASSESSMENT. CARDIAC patients with elevated CRP are POTENTIALLY at a HIGHER RISK OF FUTURE CARDIAC EVENTS.Performed By: #### MG #### [address] [address]Gukzluzfzx Progress Noteon 64-73-8872Zufjryxgbr Progress Note Subjective PCP: Opal Ga DO ([place], [place]) Cardio: [facility] [place] [place] 83M with permanent AF, CHF, CKD, hypercholesterolemia transferred from [facility] for continued treatment of lower extremity edema and perioperative cardiology evaluation. Lower extremity edema suspected of being more related to chronic lymphedema than decompensated heart failure. Interval History: - POD #1 lumbar I&D with wound closure finding a small seroma - No significant events overnight - Fluid balance -1.3 L yesterday and -4.0 L since admission to [facility] (-4.7 L at [facility] prior to transfer) - Denies chest pain, dyspnea, palpitations, or lightheadedness Cardiac Testing Echocardiography > 04/13/24: (Limited) EF 45-50%, mild RV enlargement with mildly reduced systolic function, marked LAE, moderate MARCIA ([facility]) Objective Vitals & Measurements T: 38.0 ?C (Oral) HR: 66 (Peripheral) RR: 18 BP: 89/46 SpO2: 93% HT: 167 cm WT: 85.0 kg BMI: 29.26 Lab Results Test Name Test Result Date/Time Hgb 9.0 g/dL (Low) 04/17/2024 08:43 EST Platelet 198 x10 Sodium Lvl 133 mmol/L 04/17/2024 08:43 EST Potassium Lvl 3.7 mmol/L 04/17/2024 08:43 EST BUN 20 mg/dL 04/17/2024 08:43 EST Creatinine Lvl 1.37 mg/dL (High) 04/17/2024 08:43 EST Estimated GFR 52 mL/min/1.73m? (Low) 04/17/2024 08:43 EST Magnesium Lvl 2.0 mg/dL 04/17/2024 08:43 EST Physical Exam Constitutional: No acute distress Neck: No JVD Respiratory: Respirations even and non-labored, clear to auscultation bilaterally Cardiovascular: Irregularly irregular rhythm with normal S1 and S2 and no murmurs, SCDs in place, trace edema in the feet bilaterally Extremities: No cyanosis Psych: Normal orientation Medications Inpatient acetaminophen, 650 mg, Oral, q6hr, PRN allopurinol, 300 mg, Oral, Daily atorvastatin, 40 mg, Oral, HS (at bedtime) bumetanide, 1 mg, Oral, Daily carvedilol, 6.25 mg, Oral, BID Colace, 100 mg, Oral, BID Dulcolax Laxative, 10 mg, Oral, Daily, PRN Dulcolax Laxative, 10 mg= 1 supp, Rectal, Daily, PRN Eszopiclone 3 mg tablets, 1 tablet, Oral, HS (at bedtime) Fleet Enema 7 g-19 g rectal enema, 133 mL, Rectal, Daily, PRN folic acid, 1 mg, Oral, Daily Klor-Con M20, 20 mEq, Oral, Daily levothyroxine, 150 mcg, Oral, Daily magnesium oxide, 400 mg, Oral, Daily meropenem + Sodium Chloride 0.9% intravenous solution 100 mL + sterile water 40 mL MiraLax, 17 g= 1 EA, Oral, Daily morphine, 2 mg= 1 mL, IV Push, q3hr, PRN Percocet 5/325 oral tablet, 1 tabs, Oral, q6hr, PRN traZODone, 50 mg, Oral, HS (at bedtime), PRN vancomycin Zofran, 4 mg= 2 mL, IV Push, j4vl-Qjbbqwry Times, PRN Assessment/Plan 1. Chronic HFmrEF (systolic heart failure) - Heart failure is compensated - Improving lower extremity edema seems to be more related to chronic lymphedema than left-sided heart failure - Continue bumetanide 1 mg daily - Continue to track accurate fluid balance - Continue carvedilol 6.25 mg BID 2. Chronic lymphedema - Patient has used bilateral lower extremity lymphedema pumps nightly for years - Continue bumetanide 1 mg daily 3. Permanent atrial fibrillation on anticoagulants - Ventricular rates are controlled on current medical therapy - Continue carvedilol 6.25 mg BID - Resume Eliquis 5 mg BID when okay with Dr. Man 4. Lumbar paraspinal fluid collection - POD #1 lumbar I&D with wound closure Will follow with you. OK to discharge from a cardiac perspective. Medical Decision Making Number of Problems Addressed: Moderate (2 stable chronic problems [CHF, AF]) Data Reviewed/Analyzed: Moderate (reviewed results of at least 3 unique lab tests) Risk of Complications, Morbidity, or Mortality: Moderate (prescription drug management) Electronically signed by Frankie Dallas DO 04/18/24 07:58 [facility] Diff Autoon 92-57-4646Arxt Absolute0.1 x10*3/mcLNormal0.0-0.2BWood County HospitalComment on above:Performed By: #### .Automated Diff ####[address] [address]Rrtimrxtz/100 WBC (Bld)0.6 %Normal0.0-1.2BWood County HospitalComment on above:Performed By: #### .Automated Diff ####[address] [address]Jjm Absolute0.3 x10*3/mcLNormal0.0-0.4BWood County HospitalComment on above:Performed By: #### .Automated Diff ####[address] [address]Xswnzxhbfmz/100 WBC (Bld)4.0 %Normal0.0-6.1 [facility] Medical CenterComment on above:Performed By: #### .Automated Diff ####[address] [address]Lvupm Absolute2.7 x10*3/mcLNormal1.0-4.8BWood County HospitalComment on above:Performed By: #### .Automated Diff ####[address] [address]Piaqvnvygcj/100 WBC (Bld)32.0 %Ffsdxr49.2-40.8 [facility] Medical CenterComment on above:Performed By: #### .Automated Diff ####[address] [address]Apqo Absolute0.8 x10*3/mcLNormal0.3-1.1BWood County HospitalComment on above:Performed By: #### .Automated Diff ####[address] [address]Sevekrnin/100 WBC (Bld)9.7 %Normal4.7-13.9BWood County HospitalComment on above:Performed By: #### .Automated Diff ####[id number] [place], [place] [address]Wpupza Absolute4.5 x10*3/mcLNormal1.8-7.7BWood County HospitalComment on above:Performed By: #### .Automated Diff ####[address] [address]Jytuoy Auto53.7 %Odajrr51.2-70.8BWood County HospitalComment on above:Performed By: #### .Automated Diff ####[address] [address]FCGbs 30-57-3404Dpl Rate75 mm/hrHigh0-23[facility] Medical CenterComment on above:Performed By: #### ESR ####[address] [address] Infectious Disease Progress Noteon 41-46-6205Einodjvtmw Disease Progress Note Subjective Noted to have temperature of Review of Systems No new complaints. Objective Vitals & Measurements T: 36.4 ?C (Oral) HR: 86 (Peripheral) RR: 16 BP: 107/60 SpO2: 92% HT: 167 cm WT: 85.0 kg BMI: 29.26 Additional Vitals No qualifying data available. Lab Results Test Name Test Result Date/Time WBC 8.5 x10 Hgb 8.9 g/dL (Low) 04/18/2024 08:19 EST Platelet 206 x10 Sed Rate 75 mm/hr (High) 04/18/2024 08:19 EST Sodium Lvl 132 mmol/L (Low) 04/18/2024 08:19 EST Potassium Lvl 3.9 mmol/L 04/18/2024 08:19 EST CO2 27 mmol/L 04/18/2024 08:19 EST Glucose Lvl 87 mg/dL 04/18/2024 08:19 EST BUN 19 mg/dL 04/18/2024 08:19 EST Creatinine Lvl 1.45 mg/dL (High) 04/18/2024 08:19 EST CRP 10.60 mg/dL (High) 04/18/2024 08:19 EST Microbiology - Current Encounter No qualifying data available. Diagnostic Results Diagnostic Radiology XR Chest 1 View 04/18/24 11:13:05 IMPRESSION: Bibasilar airspace opacities. Signed By: Guy Boland MD Physical Exam Tmax 38. Hypotension noted in the morning hours better this afternoon. +0.1 L fluid balance today if accurate recording. Lungs diminished. Heart irregular. Abdomen soft. Back dressing in place. Minimal pedal edema. Back wound culture with Pseudomonas. Assessment/Plan 1. Dehiscence of surgical wound Appears to have infected seroma. Keep on meropenem. DC vancomycin. Doubt pneumonia as chest x-ray looks he did not have good inspiration. Respiratory panel negative. 2. Atrial fibrillation, permanent 3. Current use of anticoagulants 4. Lymphedema 5. Chronic systolic heart failure 6. Postoperative urinary retention Electronically signed by Tye Pompa MD 04/18/24 17:30 ESTNormalCincinnati Children'S Hospital Medical CenterMagnesiumon 51-87-2230Fuwvapsih [Mass/Vol]1.8 mg/dLNormal1.7-2.4 [facility] Medical CenterComment on above:Performed By: #### MG #### [address] [address]Lawcgqfiqs Progress Noteon 89-23-8077Jibxkflets Progress Note Subjective POD#1 lumbar I&D. Patient sleeping in bed. Drain unclotted. Patient denies any new issues. Objective Drain- 60ml Vitals & Measurements T: 36.6 ?C (Oral) HR: 72 (Peripheral) RR: 18 BP: 145/73 SpO2: 99% HT: 167 cm WT: 85.0 kg BMI: 29.26 Additional Vitals No qualifying data available. Lab Results Microbiology - Current Encounter No qualifying data available. Physical Exam Drain in place Motor 5/5 NVI Drsg C/D/I Medications Inpatient acetaminophen, 650 mg, Oral, q6hr, PRN acetaminophen, 650 mg, Oral, q6hr, PRN allopurinol, 300 mg, Oral, Daily atorvastatin, 40 mg, Oral, HS (at bedtime) bumetanide, 1 mg, Oral, Daily carvedilol, 6.25 mg, Oral, BID Colace, 100 mg, Oral, BID Dulcolax Laxative, 10 mg, Oral, Daily, PRN Dulcolax Laxative, 10 mg= 1 supp, Rectal, Daily, PRN Eszopiclone 3 mg tablets, 1 tablet, Oral, HS (at bedtime) Fleet Enema 7 g-19 g rectal enema, 133 mL, Rectal, Daily, PRN folic acid, 1 mg, Oral, Daily Klor-Con M20, 20 mEq, Oral, Daily levothyroxine, 150 mcg, Oral, Daily magnesium oxide, 400 mg, Oral, Daily meropenem + Sodium Chloride 0.9% intravenous solution 100 mL + sterile water 40 mL MiraLax, 17 g= 1 EA, Oral, Daily morphine, 2 mg= 1 mL, IV Push, q3hr, PRN naloxone, 0.4 mg= 1 mL, IV Push, q2min, PRN Normal Saline Flush 0.9% injectable solution, 10 mL, IV Push, As Indicated, PRN Normal Saline Flush 0.9% injectable solution, 10 mL, IV Push, BID Percocet 5/325 oral tablet, 1 tabs, Oral, q6hr, PRN traZODone, 50 mg, Oral, HS (at bedtime), PRN vancomycin Zofran, 4 mg= 2 mL, IV Push, m8lb-Qfvwungb Times, PRN Assessment/Plan 1. Dehiscence of surgical wound 2. Atrial fibrillation, permanent 3. Current use of anticoagulants 4. Lymphedema 5. Chronic systolic heart failure 6. Postoperative urinary retention Plan: 1. Continue drain 2. ID consulted and following along 3. Discharge pending Electronically signed by Mani Hannon PA-C 04/18/24 06:30 ESTNormalCincinnati Children'S Hospital Medical Center Respiratory Pathogens Panelon 87-28-1007Gbnlwqdpkx.Not detectedNormalNot DetectedCincinnati Children'S Hospital Medical CenterComment on above:Performed By: #### CD:[id number] #### [address] [address]Bzczjkzdly holmesiiNot detectedNormalNot DetectedCincinnati Children'S Hospital Medical CenterComment on above:Result Comment: Testing was performed using nucleic acid amplification including Influenza A, Influenza A/H1, Influenza A/H3, Influenza B, RSV A, RSV B, Adenovirus, Human Metapneumovirus, Parainfluenz a 1, 2, 3, 4, Rhinovirus, Bordatella parapertussis / bronchiseptica, Bordatella holmesii, Bordatella pertussis. Results from the [employer] Respiratory Pathogens Panel should be interpreted with other laboratory and clinical data available to the clinician. Negative results do not preclude viral and / or bacterial infection and should not be used as the sole basis for treatment or other patient management decisions. A false negative may occur if the virus and / or bacteria is present at levels below the analytical level of detection. Recent vaccination with the intra-nasal Influenza vaccine may produce false positive results for Influenza A and / or Influenza B.Performed By: #### CD:[id number] #### [address] [address]Zyyxlgalnp para/bronchNot detectedNormalNot DetectedCincinnati Children'S Hospital Medical CenterComment on above:Performed By: #### CD:[id number] #### [address] [address]Lirqbkszmb pertussisNot detectedNormalNot DetectedCincinnati Children'S Hospital Medical CenterComment on above:Performed By: #### CD:[id number] #### [address], [place] [address]fNJKFac detectedNormalNot DetectedCincinnati Children'S Hospital Medical CenterComment on above:Performed By: #### CD:[id number] #### [address], [place] [address]Oktwotsrn ANot detectedNormalNot DetectedCincinnati Children'S Hospital Medical CenterComment on above:Performed By: #### CD:[id number] #### [address] [address]Huxqxnqoj A/H1Not detectedNormalNot DetectedMercy Health Tiffin Hospital SystemComment on above:Performed By: #### CD:[id number] #### [address], [place] [address]Gtknakbqb A/H3Not detectedNormalNot DetectedMercy Health Tiffin Hospital SystemComment on above:Performed By: #### CD:[id number] #### [facility] [address] [facility], [place] [address]Gydkvegdu BNot detectedNormalNot DetectedMercy Health Tiffin Hospital SystemComment on above:Performed By: #### CD:[id number] #### [address], [place] [address]Ujgafejpeapsw 1Not detectedNormalNot DetectedMercy Health Tiffin Hospital SystemComment on above:Performed By: #### CD:[id number] #### [address], [place] [address]Cbctbopviegfa 2Not detectedNormalNot DetectedMercy Health Tiffin Hospital SystemComment on above:Performed By: #### CD:[id number] #### [address], [place] [address]Byzgguzfnoyxf 3Not detectedNormalNot DetectedMercy Health Tiffin Hospital SystemComment on above:Performed By: #### CD:[id number] #### [address], [place] [address]Asrlytlxsffvz 4Not detectedNormalNot DetectedMercy Health Tiffin Hospital SystemComment on above:Performed By: #### CD:[id number] #### [address], [place] [address]TyhirohvaiTye detectedNormalNot DetectedMercy Health Tiffin Hospital SystemComment on above:Result Comment: Due to the genetic similarity between human rhinovirus and enterovirus, some strains of enterovirus may be detected as rhinovirus by this assay.Performed By: #### CD:[id number] #### [address], [place] [address]PPF ANot detectedNormalNot DetectedBlMagruder HospitalComment on above:Performed By: #### CD:[id number] #### [facility] [address] [place], [place] [address]JNM BNot detectedNormalNot DetectedCincinnati Children'S Hospital Medical CenterComment on above:Performed By: #### CD:[id number] #### [facility] [address] [place], [place] [address]UF Chest 1 Viewon [id number] Chest 1 ViewCLINICAL HISTORY: Worsening dyspnea. EXAMINATION: An upright portable image of the chest was obtained at 0946 hours. There is no prior study available for comparison. FINDINGS: Cardiac silhouette is at the upper limits of normal in size. Pulmonary vasculature is unremarkable.The aorta is tortuous and calcified. There are bibasilar airspace opacities. There is no sizable pleural effusion. There is no pneumothorax. There are anchors in the right humeral head. IMPRESSION: Bibasilar airspace opacities. Final Dictated by: Guy Boland MD Dictated DT/TM: 04/18/2024 11:12 am Signed by: Guy Boland MD Signed (Electronic Signature): 04/18/2024 11:13 am (If Report Is Signed, Electronically Signed in Other Vendor System)Normal [facility].eGFRon 48-00-2434Eevpovmvw GFR52 mL/min/1.73m?Low >=60[facility] Medical CenterComment on above:Result Comment: [facility] have implemented the eGFR calculation approach that does not havea coefficient for race and that conforms to [...] maximum of SCr/? or 1 Age = yearsPerformed By: #### EGFR ####[address] [address]Mvbwh Metabolic Profileon 65-61-2009Dgfwq gap [Moles/Vol] 7 mmol/LNormal4-12[facility] Medical CenterComment on above:Performed By: #### CD:[id number] ####[address] [address]Bttczkr [Mass/Vol]8.4 mg/dLLow8.5-10.3BWood County Hospital Comment on above:Performed By: #### CD:[id number] ####[address] [address]Kxomethl [Moles/Vol]100 mmol/L Mqmouw13-002CvtnkiwfwCincinnati Children'S Hospital Medical CenterComment on above:Performed By: #### CD:[id number] ####[address] [address]FK7 [Moles/Vol]26 mmol/KUsoruf66-87ShqcmbzzcCincinnati Children'S Hospital Medical CenterComment on above:Performed By: #### CD:[id number] ####[address] [address]Pmrrvxefpa [Mass/Vol]1.37 mg/dLHigh0.61-1.24 [facility] Medical CenterComment on above:Performed By: #### CD:[id number] ####[address] [address]Ajmnpvk [Mass/Vol]89 mg/hNCgksev10-56IkzlvvmrtCincinnati Children'S Hospital Medical CenterComment on above: Performed By: #### CD:[id number] ####[address] [address]Ryudeymot [Moles/Vol]3.7 mmol/LNormal3.4-4.8BWood County HospitalComment on above:Performed By: #### CD:[id number] ####[address] [address]Cjepkh [Moles/Vol]133 mmol/IJulswz336-750LhoiqtulhCincinnati Children'S Hospital Medical CenterComment on above:Performed By: #### CD:[id number] ####[address] [address]Etwr nitrogen [Mass/Vol]20 mg/dLNormal8-26[facility] CenterComment on above:Performed By: #### CD:[id number] ####[address] [address]Czdo nitrogen/Creatinine [Mass ratio]14.6 mg/exXoeujl85.0-20.0[facility] Medical CenterComment on above:Performed By: #### CD:[id number] ####[address] [address]IMM w/ Diffon 04-17-2024 Erythrocyte distribution width (RBC) [Ratio]18.7 %High11.6-14.8BWood County HospitalComment on above:Performed By: #### CBC ####[address] [address]Ocoyawtwsv (Bld) [Volume fraction]26.4 %Low41.0-53.0[facility] Medical CenterComment on above: Performed By: #### CBC ####[address] [address]Qjwlsbjsau (Bld) [Mass/Vol]9.0 g/dLLow13.5-17.5BWood County HospitalComment on above:Performed By: #### CBC ####[address] [address]ZGO (RBC) [Entitic mass]31.8 pg Tfguws66.0-35.0[facility] Medical CenterComment on above:Performed By: #### CBC ####[address] [address]BTGT33.2 %Xqtzov39.0-37.0[facility] Medical CenterComment on above:Performed By: #### CBC ####[address] [address]CST (RBC) [Entitic vol]93.0 vYKsqocx11.0-100.0[facility] Medical CenterComment on above:Performed By: #### CBC ####[address] [address]Wluspnev214 x10*3/cvBVsrbfv409-524ZqnnytmujCincinnati Children'S Hospital Medical CenterComment on above:Performed By: #### CBC ####[id number] mean volume (Bld) [Entitic vol]6.5 fL Low6.7-10.6BWood County HospitalComment on above:Performed By: #### CBC ####[address] [address]OBA9.84 x10*6/mcLLow4.30-5.80[facility] Medical CenterComment on above:Performed By: #### CBC ####[address] [address]RNU7.6 x10*3/mcLNormal4.5-11.0[facility] CenterComment on above:Performed By: #### CBC ####[address] [address]Ulav Autoon 06-37-7837Hpln Absolute0.1 x10*3/mcLNormal 0.0-0.2BWood County HospitalComment on above:Performed By: #### CD:[id number] #### [address] [address]Ptrrjekfa/100 WBC (Bld)1.3 %High0.0-1.2BWood County HospitalComment on above:Performed By: #### CD:[id number] #### [address] [address]Wvj Absolute0.3 x10*3/mcLNormal0.0-0.4BWood County HospitalComment on above:Performed By: #### CD:[id number] #### [address], [place] [address]Jootrxiaata/100 WBC (Bld)5.4 %Normal0.0-6.1BCleveland Clinic Fairview Hospital SystemComment on above:Performed By: #### CD:[id number] #### [address], [place] [address]Bvlia Absolute1.6 x10*3/mcLNormal1.0-4.8BWood County HospitalComment on above:Performed By: #### CD:[id number] #### [address] [address]Dvsouomprmh/100 WBC (Bld)28.7 %Wkkgzy87.2-40.8BWood County HospitalComment on above:Performed By: #### CD:[id number] #### [address], [place] [address]Tqhn Absolute0.5 x10*3/mcLNormal0.3-1.1BWood County HospitalComment on above:Performed By: #### CD:[id number] #### [address] [address]Nskboaeji/100 WBC (Bld)9.7 %Normal4.7-13.9BCleveland Clinic Fairview Hospital SystemComment on above:Performed By: #### CD:[id number] #### [address], [place] [address]Nswqan Absolute3.1 x10*3/mcLNormal1.8-7.7BCleveland Clinic Fairview Hospital SystemComment on above:Performed By: #### CD:[id number] #### [address], [place] [address]Eqxqif Auto54.9 %Apxsqx81.2-70.8BCleveland Clinic Fairview Hospital System Comment on above:Performed By: #### CD:[id number] #### [facility] [address] [place], [place] [address]Jfk & Hcton 93-14-7403Sbijiypbsg (Bld) [Volume fraction]27.2 % Low41.0-53.0[facility] Medical CenterComment on above:Performed By: #### HGBHCT ####[facility] [place] [address] Hemoglobin (Bld) [Mass/Vol]9.1 g/dLLow13.5-17.5BWood [facility] Hospital Comment on above:Performed By: #### HGBHCT ####[address] [address]Wtwjfgcmet Disease Consultationon 04-17-2024 Infectious Disease ConsultationChief Complaint Wound status post lumbar surgery with February 2024 dehiscence with fluid collection Reason for Consultation Antibiotic management History of Present Illness 83-year-old gentleman admitted to hospital on 15 April with wound dehiscence. He had lumbar decompression with fusion February 20. He has had prior ablations prior to the surgery. 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 He statesit was a very long name for the tumor. His initial surgery at [facility] in [place]. Postoperatively apparently he gained a lot of fluid weight. [facility] was [facility] and due to persistent edema he was sent to [facility]. Catheter wasplaced and was found to have urinary retention. He has a prior history of prostate surgery but usually does not have problems with urinary retention. He was diuresed about 10 kg. Apparently he had obstructive uropathy which improved with Chou catheter placement. Voiding trials have not been successful. Also has chronic lymphedema and uses pumps at home. Did not apparently been started up either. He was [facility]. Apparently wound broke down due to persistent pressure with the back brace on against the bed. At 1 point his lymphedema pump was apparently put on over socks and caused extreme pain due to the tightness. He is doing okay at this point. He does not have any open areas in the legs or feet. He was initially admitted to [place] with MRI showing a fluid collection. He has chronic atrial fibrillation. Surgery was not done there due to need for cardiology service. He was brought here and taken to surgery today. Incision was opened and access gained to the epidural space. Small fluid collection was felt to be seroma. No sign of infection noted. Culture sent. Necrotic tissue was present from muscle to the fascia and this was all debrided. Wound apparently looked okay. There is redness all around the wound on the back. Patient and daughter both give history. Daughter does not recall being told of any fever by the [facility]. She has been unhappy with the care at the facility. On review of documents from [place] he was on remdesivir on the and 14 April. However daughter states he was [facility] earlier in March. Apparently though he did not have cough or other respiratory symptoms. Review of Systems Patient apparently has some worsening hearing problems. Earwax was noted by hospital service on the. However he has bilateral hearing loss. He states he gets occasional ringing in the ear. Physical Exam Vitals & Measurements T: 36.2 ?C (Axillary) TMIN: 36.2 ?C (Axillary) TMAX: 37.3 ?C (Oral) HR: 71 (Peripheral) RR: 14 BP: 95/59 SpO2: 97% Looks somewhat chronically ill. Okay. No fever documented.. Blood pressure 90s to 100s. Negative fluid balance of 3.4 L since admission. O2 requirements have gone from 2.5 L to 1 L. He does not hear rubbing of fingers in close proximity to both ears. Sclera conjunctiva normal. Oral mucosa okay. No significant JVD. No lymphadenopathy. Lungs occasional crackle. Heart irregular. Difficult to hear murmur. Abdomen soft nontender. Back with midline dressing in place with drain has bloody fluid. Erythema extends from the incision area upper extremities unremarkable. Lower extremities with chronic stasis changes in the legs. Edema under control. Minimal pedal edema. Pulses okay. Looks feet okay. Additional Vitals No qualifying data available. Assessment/Plan 1. Dehiscence of surgical wound Surrounding erythema concerning the potentially could be to shearing of the brace against his skin.Currently on vancomycin and meropenem. Only anaerobic cultures were being reported at this point. From what I can tell he has not been on any previous antibiotic. What is in his Hemovac looks more like hematoma/old blood. If indeed he has had radiation to the lumbar area wound healing potential could be poor. Patient is somewhat vague and his daughter states that she was quite young when her dad went through this. Will see what his acute phase reactants look like and progress his with drainage etc. Ordered: C-Reactive Protein Erythrocyte Sedimentation Rate 2. Atrial fibrillation, permanent 3. Current use of anticoagulants 4. Lymphedema Currently under control. Continue using sequential compression. 5. Chronic systolic heart failure On chronic diuretic therapy as well. 6. Postoperative urinary retention Thank you for this consult. I will follow with you. Problem List/Past Medical History Ongoing Atrial fibrillation, permanent Wayne's cyst of knee Chronic kidney disease Chronic systolic heart failure Current use of anticoagulants Gout History of gastric ulcer Hypercholesterolemia Hypothyroidism Lymphedema Sleep apnea Historical No qualifying data Procedure/Surgical History History of bilateral knee replacement History of left hip replacement (more content not included)...NormalCincinnati Children'S Hospital Medical CenterMagnesiumon 92-16-6030Oounqgnde [Mass/Vol]2.0 mg/dLNormal 1.7-2.4BWood County HospitalComment on above:Performed By: #### MG #### [place], [place] [address]Operative Reporton [id number] ReportPreoperative Diagnosis lumbar postoperative fluid collection with wound dehiscence Postoperative Diagnosis same Operation Lumbar I&D with wound closure Surgeon(s) [facility] TIDWELL, Randi Mesa (Surgeon - Primary) Harness Mender Mani Hannon PA-C (Piper Installer) Anesthesia General Lupe TIDWELL, Elan Hurtado (Pulley Man) Presley Pereira MD, Alejandro Thomas (Pulley Man) Girish Gonzalez (Provider) Estimated Blood Loss 25 mL Findings small seroma Specimen(s) Sterile Body Sites Culture (Back Wound for aerobic,Tissue,Back) Anaerobic Culture (Back wound for anaerobic,Wound,Back) Complications none Catheters, Drains, Tubes Device: Wound Drain W/Trocar [id number] Electronically signed by Lalo LECHUGA Gustabo Sharpe 04/17/24 07:23 ESTNormBarney Children's Medical Center Sodiumon 27-28-5941Jwaymu [Moles/Vol]134 mmol/EJorwdb757-909JwfmacxzuCincinnati Children'S Hospital Medical CenterComment on above:Performed By: #### NA ####[facility] [place], [place] [address]Qrfgi Troughon 81-47-0307Agvrr Ulejzk22.8 mcg/tBTdlprb64.0-15.0C[facility] Hospital Medical CenterComment on above: Performed By: #### VANCT #### [address] [address].eGFRon 19-48-1949Hchjqdjwf GFR46 mL/min/1.73m?Low>=60C[facility] Children'S Hospital Medical CenterComment on above:Result Comment: [facility] Laboratories have implemented the eGFR calculation approach that does not havea coefficient for race and that conforms to [...] maximum of SCr/? or 1 Age = yearsPerformed By: #### EGFR #### [facility] [address] [place] [address]MGD/Rhon 24-39-8312AOZ/RhABO/Rh: O POSNormBarney Children's Medical CenterComment on above:Performed By: #### VANCT #### [place] [address] [facility], [place] [address]SSSY Autoon [id number] AutoNegativeNormalCincinnati Children'S Hospital Medical CenterComment on above:Performed By: #### ASA #### [facility] (UNKNOWN) [address] [facility], [place] [address]I97gg 30-78-9734Zoapnfsla (Vitamin B12) [Mass/Vol]422 pg/mL Oufori957-177JwodlgjfaWood County HospitalComment on above:Performed By: #### CD:[id number] #### [facility] [address] [place] [address], [place] [address]Kwrxs Metabolic Profileon 95-28-2653Lhieb gap [Moles/Vol]8 mmol/LNormal4-12C[facility] Hospital Medical CenterComment on above:Performed By: #### CD:[id number] #### [address], [place] [address]Djpqftl [Mass/Vol]8.5 mg/dLNormal8.5-10.3BWood County HospitalComment on above:Performed By: #### CD:[id number] #### [address], [place] [address]Nvmqzqmw [Moles/Vol]96 mmol/LIbf65-336AbllqqsjxCincinnati Children'S Hospital Medical CenterComment on above:Performed By: #### CD:[id number] #### [address], [place] [address]FU7 [Moles/Vol]26 mmol/NMksbwk35-51CjcrbwdtaCincinnati Children'S Hospital Medical CenterComment on above:Performed By: #### CD:[id number] #### [address], [place] [address]Xibgukbiyq [Mass/Vol]1.51 mg/dLHigh0.61-1.24C[facility] Hospital Medical CenterComment on above:Performed By: #### CD:[id number] #### [address], [place] [address]Jnorjom [Mass/Vol]85 mg/wGHwsypm59-17BaudpqfrlCincinnati Children'S Hospital Medical CenterComment on above:Performed By: #### CD:[id number] #### [address] [address]Naxkdnnio [Moles/Vol]3.6 mmol/LNormal3.4-4.8BWood County HospitalComment on above:Performed By: #### CD:[id number] #### [address] [address]Vrxwoa [Moles/Vol]130 mmol/FYyg512-158SaqrpgidkCincinnati Children'S Hospital Medical CenterComment on above:Performed By: #### CD:[id number] #### [address] [address]Dgdw nitrogen [Mass/Vol]23 mg/dLNormal8-26C[facility] Hospital Medical CenterComment on above:Performed By: #### CD:[id number] #### [address] [address]Jeso nitrogen/Creatinine [Mass ratio]15.2 mg/ryBhnthe39.0-20.0 [facility] Medical CenterComment on above:Performed By: #### CD:[id number] #### [address] [address]WTY w/ Diffon 89-74-3969Akhgsevkkzy distribution width (RBC) [Ratio]15.4 %High11.6-14.8BWood County HospitalComment on above: Performed By: #### CBC ####[address] [address]Xjffflhjpt (Bld) [Volume fraction]23.3 %Low41.0-53.0 [facility] Hospital Medical CenterComment on above:Performed By: #### CBC ####[address] [address]Ouyiqjhdzz (Bld) [Mass/Vol]7.7 g/dLLow13.5-17.5BWood County HospitalComment on above:Performed By: #### CBC ####[address] [address]MJQ (RBC) [Entitic mass]32.0 fcUfrgbv04.0-35.0C[facility] Hospital Medical CenterComment on above:Performed By: #### CBC ####[place] [address]MCHC33.2 %Rzlerc22.0-37.0 [facility] Hospital Medical CenterComment on above:Performed By: #### CBC ####[place] [address]MCV (RBC) [Entitic vol]96.5 uTGvoqou96.0-100.0C[facility] Hospital Medical CenterComment on above:Performed By: #### CBC ####[address] [address]Otifctaw728 x10*3/ygLEttquw084-179Uivssyyeu Valley Health SystemComment on above:Performed By: #### CBC ####[place] [address]Platelet mean volume (Bld) [Entitic vol]6.9 fL Normal6.7-10.6BWood County HospitalComment on above:Performed By: #### CBC ####[address] [address]CEG9.41 x10*6/mcLLow4.30-5.80C[facility] Hospital Medical CenterComment on above:Performed By: #### CBC ####[address] [address]XCS4.5 x10*3/mcLNormal4.5-11.0C[facility] Hospital Medical CenterComment on above:Performed By: #### CBC ####[address] [address]Pxauesuvbb Progress Noteon 68-16-4037Raikbhjxgu Progress NoteSubjective PCP: Opal Ga DO ([place], [place]) Cardio: Kathy Mcintyre DO ([facility], [place], [place]) 83M with permanent AF, CHF, CKD, hypercholesterolemia transferred from [facility] for continued treatment of lower extremity edema and perioperative cardiology evaluation. Lower extremity edema suspected of being more related to chronic lymphedema than decompensated heart failure. Interval History: - Surgery reportedly planned for Tuesday, 04/17 at 6 am - No significant events overnight - Fluid balance -720 mL yesterday and -1.1 L since admission to [facility] (-4.7 L at [facility] prior to transfer) - Lower extremity edema decreasing - Denies chest pain, dyspnea, palpitations, or lightheadedness Cardiac Testing Echocardiography > 04/13/24: (Limited) EF 45-50%, mild RV enlargement with mildly reduced systolic function, marked LAE, moderate MARCIA ([facility]) Objective Vitals & Measurements T: 36.7 ?C (Oral) HR: 76 (Peripheral) RR: 18 BP: 107/59 SpO2: 94% HT: 167 cm WT: 82.3 kg BMI: 29.26 Lab Results Test Name Test Result Date/Time Hgb 7.7 g/dL (Low) 04/16/2024 05:17 EST Platelet 205 x10 Sodium Lvl 130 mmol/L (Low) 04/16/2024 05:17 EST Potassium Lvl 3.6 mmol/L 04/16/2024 05:17 EST BUN 23 mg/dL 04/16/2024 05:17 EST Creatinine Lvl 1.51 mg/dL (High) 04/16/2024 05:17 EST Estimated GFR 46 mL/min/1.73m? (Low) 04/16/2024 05:17 EST Magnesium Lvl 2.0 mg/dL 04/16/2024 05:17 EST Physical Exam Constitutional: No acute distress Neck: No JVD Respiratory: Respirations even and non-labored, clear to auscultation bilaterally Cardiovascular: Irregularly irregular rhythm with normal S1 and S2 and no murmurs, (+) pedal edema improved Extremities: No cyanosis Psych: Normal orientation Medications Inpatient acetaminophen, 650 mg, Oral, q6hr, PRN allopurinol, 300 mg, Oral, Daily atorvastatin, 40 mg, Oral, HS (at bedtime) bumetanide, 1 mg, Oral, Daily carvedilol, 6.25 mg, Oral, BID Klor-Con M20, 20 mEq, Oral, Daily levothyroxine, 150 mcg, Oral, Daily magnesium oxide, 400 mg, Oral, Daily meropenem + Sodium Chloride 0.9% intravenous solution 100 mL + sterile water 40 mL Percocet 5/325 oral tablet, 1 tabs, Oral, q6hr, PRN traZODone, 50 mg, Oral, HS (at bedtime), PRN vancomycin Assessment/Plan 1. Chronic HFmrEF (systolic heart failure) - Heart failure is compensated - Improving lower extremity edema seems to be more related to chronic lymphedema than left-sided heart failuer - Continue bumetanide 1 mg daily - Continue to track accurate fluid balance - Continue carvedilol 6.25 mg BID 2. Chronic lymphedema - Patient has used bilateral lower extremity lymphedema pumps nightly for years - Continue bumetanide 1 mg daily 3. Permanent atrial fibrillation on anticoagulants - Ventricular rates are controlled on current medical therapy - Continue carvedilol 6.25 mg BID - Eliquis on hold in anticipation of surgery 4. Lumbar paraspinal fluid collection - Dr. Man planning to perform exploration tomorrow 5. Anemia - Hemoglobin <8.0 g/dL this morning; defer management to Hospitalist service Will follow perioperatively with you. Discussed management with Dr. Farr (Hospitalist). Medical Decision Making Number of Problems Addressed: Moderate (2 stable chronic problems [CHF, AF]) Data Reviewed/Analyzed: Moderate (reviewed results of at least 3 unique lab tests) Risk of Complications, Morbidity, or Mortality: Moderate (prescription drug management) Electronically signed by Frankie Dallas DO 04/16/24 10:16 ESTNormBarney Children's Medical Center Diff Autoon 17-04-4802Eolg Absolute0.1 x10*3/mcLNormal0.0-0.2BWood County HospitalComment on above:Performed By: #### .Automated Diff ####[address] [address]Ljdajipcp/100 WBC (Bld)0.8 %Normal0.0-1.2Bl[facility] Valley Health SystemComment on above:Performed By: #### .Automated Diff ####[address] [address]Kun Absolute0.3 x10*3/mcLNormal0.0-0.4BCleveland Clinic Fairview Hospital SystemComment on above:Performed By: #### .Automated Diff ####[address] [address]Fogxisrdytc/100 WBC (Bld)3.8 %Normal0.0-6.1 [facility] SystemComment on above:Performed By: #### .Automated Diff ####[address] [address]Rbebh Absolute2.5 x10*3/mcLNormal1.0-4.8BCleveland Clinic Fairview Hospital SystemComment on above:Performed By: #### .Automated Diff ####[address] [address]Ogwfplexdiv/100 WBC (Bld)33.2 %Xrkadf17.2-40.8 [facility] Medical CenterComment on above:Performed By: #### .Automated Diff ####[address] [address]Gkqm Absolute0.5 x10*3/mcLNormal0.3-1.1BWood County HospitalComment on above:Performed By: #### .Automated Diff ####[address] [address]Xpnsjgmdt/100 WBC (Bld)6.6 %Normal4.7-13.9BCleveland Clinic Fairview Hospital SystemComment on above:Performed By: #### .Automated Diff ####[address] [address]Aimvyh Absolute4.1 x10*3/mcLNormal1.8-7.7BCleveland Clinic Fairview Hospital SystemComment on above:Performed By: #### .Automated Diff ####[address] [address]Dkkajs Auto55.6 %Blioqt79.2-70.8BWood County HospitalComment on above:Performed By: #### .Automated Diff ####[address] [address]Xfrlkdrqgx 04-16-2024 Ferritin Rwr146.5 ng/tDKdbgcq15.9-336.2BWood County HospitalComment on above:Performed By: #### FERR ####[address] [address]Xxatnr Lvlon 76-89-2460Betwrd Lvl5.9 ng/mLNormal>=5.9 [facility] Medical CenterComment on above:Result Comment: A WHO Technical Consultation has determined that deficient Folate concentrations are considered to be less than 4 ng/mL.Performed By: #### FOL ####[address] [address]Unv & Hcton 51-49-0405Srxwcdupdk (Bld) [Volume fraction]26.1 %Low41.0-53.0C[facility] Medical CenterComment on above: Performed By: #### CBC #### [address] [address]Wayowuvpyu (Bld) [Mass/Vol]9.0 g/dLLow13.5-17.5BWood County HospitalComment on above:Performed By: #### CBC #### [address] [address]Aqkycjvtqdu 55-22-0833Sexptaudd [Mass/Vol]2.0 mg/dLNormal 1.7-2.4BWood County HospitalComment on above:Performed By: #### MG ####[address] [address]Gmpee Count on 58-68-0345Pegvcgogh Retic Count0.82 %Normal0.80-2.50C[facility] Hospital Medical CenterComment on above:Performed By: #### CD:[id number] #### [address] [address]Kwtdchpsod (Bld) [Volume fraction]23.0 %Low41.0-53.0C[facility] Hospital Medical CenterComment on above:Performed By: #### CD:[id number] #### [address] [address]Gsm Abs0.0370 x10*6/mcLNormalCincinnati Children'S Hospital Medical Center Comment on above:Performed By: #### CD:[id number] #### [address] [address]Botxonreuzdm4.6 %Normal0.8-2.5BWood County Hospital Comment on above:Performed By: #### CD:[id number] #### [address] [address]RAJIxj 96-39-6766Yapb [Mass/Vol]26 ug/wHIwb70-888PftssjjxaCincinnati Children'S Hospital Medical CenterComment on above:Performed By: #### TIBC ####[address] [address]Pqtj Sat11.6 %Low>=16.0 [facility] Medical CenterComment on above:Performed By: #### TIBC ####[address] [address]EVGL883 mcg/kIQgv962-242HhgyqbhewCincinnati Children'S Hospital Medical CenterComment on above:Performed By: #### TIBC ####[address] [address] Transferrin [Mass/Vol]160 mg/fSRms177-794CtexrjertCincinnati Children'S Hospital Medical CenterComment on above:Performed By: #### TIBC ####[address] [address].AMI 2 Hron Hour Jjgpbbtyt62.8 ng/mLNormal 17.4-105.7BWood County HospitalComment on above:Performed By: #### MG #### [address] [address] Hour Troponin<0.81Eunnpe9.00-0.03C[facility] Medical CenterComment on above:Result Comment: An increased Troponin-I value, in the absence of myocardial ischemia, may indicate other etiologies of cardiac damage. 99th Percentile Cutoff for Negative/Positive: Negative <= 0.03 Positive >= 0.04Performed By: #### MG #### [address] [address].eGFRon 47-47-1027Gfkeobncq GFR55 mL/min/1.73m?Low>=60[facility] Medical CenterComment on above:Result Comment: [facility] Laboratories have implemented the eGFR calculation approach that does not havea coefficient for race and that conforms to [...] maximum of SCr/? or 1 Age = yearsPerformed By: #### CD:[id number] #### [address] [address]JETne 44-22-0186Rvhxwnqpcot peptide B (Bld) [Mass/Vol]166 pg/mL High0-100C[facility] Medical CenterComment on above:Performed By: #### CD:[id number] #### [address] [address]JGC w/ Diffon 58-28-5879Nslggyhuppm distribution width (RBC) [Ratio]15.7 %High11.6-14.8BWood County HospitalComment on above: Performed By: #### CBC #### [address], [place] [address]Sosqcsxvhl (Bld) [Volume fraction]26.7 %Low41.0-53.0[facility] Medical CenterComment on above:Performed By: #### CBC #### [address] [address]Cuqnqmxdgy (Bld) [Mass/Vol]8.9 g/dLLow13.5-17.5BWood County HospitalComment on above:Performed By: #### CBC #### [address] [address]LSU (RBC) [Entitic mass]32.2 zjRnjedd72.0-35.0[facility] Medical CenterComment on above:Performed By: #### CBC #### [address] [address]FHMM83.5 %Ewluue79.0-37.0[facility] Medical CenterComment on above:Performed By: #### CBC #### [address] [address]IQS (RBC) [Entitic vol]96.1 sNMfgsow59.0-100.0[facility] Medical CenterComment on above:Performed By: #### CBC #### [address] [address]Lymqwvff538 x10*3/vqNYwhugh043-240HovwoliydCincinnati Children'S Hospital Medical CenterComment on above:Performed By: #### CBC #### [address] [address]Ltemchlm mean volume (Bld) [Entitic vol]6.7 fLNormal6.7-10.6 [facility] Medical CenterComment on above:Performed By: #### CBC #### [address] [address]MZD3.78 x10*6/mcLLow4.30-5.80[facility] Comment on above:Performed By: #### CBC #### [address] [address]VBR0.7 x10*3/mcLNormal4.5-11.0[facility] Comment on above:Performed By: #### CBC #### [address] [address]HPIyk 77-98-9789Snbjdjc [Mass/Vol]3.0 g/dLLow3.2-4.9BWood County HospitalComment on above:Performed By: #### CBC #### [address] [address]Jurkrko/Globulin [Mass ratio]0.8 {ratio}Low1.1-2.2BWood County HospitalComment on above:Performed By: #### CBC #### [address] [address]Zia Bjys295 IU/NUnep81-40DeldqcielCincinnati Children'S Hospital Medical CenterComment on above:Performed By: #### CBC #### [address] [address]FEQ [Catalytic activity/Vol]10 U/OTsi24-74QwqlojatmCincinnati Children'S Hospital Medical CenterComment on above:Performed By: #### CBC #### [address] [address]Qmlcb gap [Moles/Vol]7 mmol/LNormal4-12[facility] Medical CenterComment on above:Performed By: #### CBC #### [address] [address]MQD [Catalytic activity/Vol]19 U/TCvwabj54-53PhdxvshkvCincinnati Children'S Hospital Medical CenterComment on above:Performed By: #### CBC #### [address] [address]Gadh Total0.8 mg/dLNormal0.3-1.2BWood [facility] Hospital Comment on above:Performed By: #### CBC #### [address] [address]Wpifahy [Mass/Vol]8.5 mg/dLNormal8.5-10.3Bl[facility] Health SystemComment on above:Performed By: #### CBC #### [address] [address]Oswhoezv [Moles/Vol]95 mmol/GUya18-966RlmltikmeCincinnati Children'S Hospital Medical CenterComment on above:Performed By: #### CBC #### [address] [address]TU5 [Moles/Vol]27 mmol/ULrblyt37-69WcejahxkkCincinnati Children'S Hospital Medical CenterComment on above:Performed By: #### CBC #### [address] [address]Cleuzufflx [Mass/Vol]1.30 mg/dLHigh0.61-1.24[facility] CenterComment on above:Performed By: #### CBC #### [address] [address]Pdaeimb [Mass/Vol]91 mg/uPObxcue94-38VwcnbqvivCincinnati Children'S Hospital Medical CenterComment on above:Performed By: #### CBC #### [address] [address]Pjhhzxeoo [Moles/Vol]3.2 mmol/LLow3.4-4.8BWood County HospitalComment on above:Performed By: #### CBC #### [address] [address]Ubjvjmx [Mass/Vol]6.6 g/dLNormal6.5-8.1BWood County HospitalComment on above:Performed By: #### CBC #### [address] [address]Lwllte [Moles/Vol]129 mmol/CVub966-074YtbsegxzgCincinnati Children'S Hospital Medical CenterComment on above:Performed By: #### CBC #### [address] [address]Akfo nitrogen [Mass/Vol]25 mg/dLNormal8-26[facility] Medical CenterComment on above:Performed By: #### CBC #### [address] [address]Zjit nitrogen/Creatinine [Mass ratio]19.2 mg/dqFfzzvk74.0-20.0 [facility] Medical CenterComment on above:Performed By: #### CBC #### [facility] [address] [place], [place] [address]Yrkqvbxqyb Consultationon 87-43-6431Uruaniwnir Consultation Chief Complaint Surgery canceled at [facility] due to swollen legs Reason for Consultation Preoperative cardiology evaluation History of Present Illness PCP: Opal Ga DO ([place], [place]) Cardio: Kathy Mcintyre DO ([place], [place]) 83M with permanent AF, CHF, CKD, hypercholesterolemia transferred from [facility] for continued treatment of lower extremity edema and perioperative cardiology evaluation. - Preop cardiology evaluation by Dr. Mcintyre (02/16/24) reported LVEF 50% by echo - Underwent lumbar decompression with fusion [facility] Dr. [facility] at [facility] on [facility]/24 - Surgery reportedly complicated by decompensated CHF > Family member claims [facility] Hospitalist gave too much IV fluid and didn't give diuretics - Post-op echo reportedly showed LVEF 35-40% (02/23/24) - Discharged to [facility] in [place], [place], for post-acute rehab - Subsequently developed acute urinary retention, LIS, and acute CHF requiring care at [facility] leading to indwelling Chou catheter - Evaluated in spine clinic 03/23 for concern about surgical site drainage - Presented to [facility] 04/13 for planned I&D but procedure canceled due to 3+ lower extremity edema and elevated BNP level - Admitted to [facility] 04/13/24 for treatment of acute on chronic systolic heart failure - NT-pro-BNP elevated at 4117 (normal is <1800) - High sensitivity troponin I elevated with flat trend (121.8, 116.3, 123.1) - CXR (04/13) report describes mild cardiomegaly, hyperinflated lungs, and minimal bibasilar atelectasis - Admitting physician at [place] documented the patient had no shortness of breath, no JVD, and clear lungs on auscultation - Limited echo showed LVEF 45-50% - [facility] [facility] (prior to transfer): -3.0 L and -1.7L - Transferred to [facility] for preoperative cardiology evaluation before rescheduling I&D - Patient currently denies chest pain, shortness of breath, cough, orthopnea, palpitations, or lightheadedness - Reportedly has chronic edema for which he has used lymphedema pumps nightly for several years Cardiac Testing Echocardiography > 04/13/24: (Limited) EF 45-50%, mild RV enlargement with mildly reduced systolic function, marked LAE, moderate MARCIA ([facility]) Physical Exam Vitals & Measurements T: 37 ?C (Oral) HR: 70 (Peripheral) RR: 18 BP: 112/67 SpO2: 97% HT: 167 cm WT: 81.6 kg BMI: 29.26 Constitutional: No acute distress HEENT: No xanthelasmas Neck: No JVD noted at 30 degrees of truncal elevation Respiratory: Respirations even and non-labored, clear to auscultation bilaterally Cardiovascular: Chest wall is non-tender, no parasternal heaves, apical impulse not displaced, irregularly irregular rhythm with normal S1 and S2 and no murmurs, carotid upstrokes brisk and equal bilaterally withoutbruits, pedal pulses 2+ bilaterally, 3+ pedal edema bilaterally Extremities: No cyanosis Skin: No ecchymosis Psych: Normal orientation Assessment/Plan 1. Chronic HFmrEF (systolic heart failure) - I am skeptical that the patient had acute decompensated CHF upon admission to [facility] > Lower extremity edema is chronic in nature > Though his NT-pro-BNP level was elevated, he did not report shortness of breath, orthopnea, orcough, and the admitting doctor documented the absence of JVD or abnormal breath sounds - Continue bumetanide 1 mg daily - Continue to track accurate fluid balance - Continue carvedilol 6.25 mg BID 2. Chronic lymphedema - Patient has used bilateral lower extremity lymphedema pumps nightly for years - Continue bumetanide 1 mg daily 3. Permanent atrial fibrillation on anticoagulants - Ventricular rates are controlled on current medical therapy - Continue carvedilol 6.25 mg BID - Eliquis on hold in anticipation of surgery; most recent administered dose unknown 4. Lumbar paraspinal fluid collection - Dr. Man planning to perform exploration 5. Preoperative cardiology evaluation - No current signs/symptoms of decompensated CHF other than lower extremity edema which is more likely due to chronic lymphedema - Acceptable cardiac risk for planned spinal surgery - Avoid administering excessive IV crystalloids during surgery that could precipitate decompensatedCHF Will follow perioperatively with you. Medical Decision Making Number of Problems Addressed: Moderate (2 stable chronic problems [CHF, AF]) Data Reviewed/Analyzed: Moderate (reviewed results of at least 3 unique lab tests) Risk of Complications, Morbidity, or Mortality: Moderate (prescription drug management) Problem List/Past Medical History Ongoing Atrial fibrillation, permanent Chronic kidney disease Chronic systolic heart failure Current use of anticoagulants Hypercholesterolemia Lymphedema Procedure/Surgical History Lumbar decompression with fusion (02/2024) [employer] (more content not included)...NormalCincinnati Children'S Hospital Medical CenterDiff Autoon [id number] Absolute0.1 x10*3/mcLNormal0.0-0.2BWood County HospitalComment on above:Performed By: #### .Automated Diff ####[address] [address]Srpypegep/100 WBC (Bld)0.7 % Normal0.0-1.2BWood County HospitalComment on above:Performed By: #### .Automated Diff ####[address] [address]Eno Absolute0.3 x10*3/mcLNormal0.0-0.4BWood County HospitalComment on above:Performed By: #### .Automated Diff ####[address] [address]Bdcckflpgym/100 WBC (Bld)3.9 %Normal0.0-6.1 [facility] Hospital Medical CenterComment on above:Performed By: #### .Automated Diff ####[address] [address]Ogusl Absolute2.2 x10*3/mcLNormal1.0-4.8BWood County HospitalComment on above:Performed By: #### .Automated Diff ####[address] [address]Rdadoadgmuc/100 WBC (Bld)25.5 %Low27.2-40.8BWood County HospitalComment on above:Performed By: #### .Automated Diff ####[address] [address]Ubgz Absolute0.6 x10*3/mcLNormal0.3-1.1BWood County HospitalComment on above:Performed By: #### .Automated Diff ####[address] [address]Wizfvpcsz/100 WBC (Bld)6.5 %Normal4.7-13.9BWood County HospitalComment on above:Performed By: #### .Automated Diff ####[address] [address]Cmaaly Absolute5.5 x10*3/mcLNormal1.8-7.7BWood County HospitalComment on above:Performed By: #### .Automated Diff ####[address] [address]Drzyhp Auto63.4 %Gvxzbf34.2-70.8BWood County HospitalComment on above:Performed By: #### .Automated Diff ####[address] [address]DIKX, PCRon 37-07-7791ABP ONLY Result Called?NoNormalCincinnati Children'S Hospital Medical CenterComment on above: Performed By: #### MG #### [address] [address]Wmkcvixcctj Resistant Staph aurus(MRSA)Not detectedNormalNot DetectedCincinnati Children'S Hospital Medical CenterComment on above:Result Comment: Mutations or polymorphisms in primer or probe binding regions may affect detectionof new or unknown MRSA variants resulting in a false negative. The [employer] Xpert MRSA Assay is a qualitative in [...] laboratory and clinical data available to the clinician.Performed By: #### MG #### [address] [address]Dxubfcgznsx 86-01-7006Rinxaolfg [Mass/Vol]1.9 mg/dLNormal 1.7-2.4BWood County HospitalComment on above:Performed By: #### MG #### [address] [address]Yelodmxilfms 64-86-8482Mpfqvjbkj [Mass/Vol]3.1 mg/dLNormal 2.5-4.6BWood County HospitalComment on above:Performed By: #### PHOS ####[address] [address]Xzoacbbo-Uma 05-52-2011Xtqaetcu I.cardiac [Mass/Vol]ng/mLNormal0.00-0.03C[facility]S Hospital Medical CenterComment on above:Result Comment: An increased Troponin-I value, in the absence of myocardial ischemia, may indicate other etiologies of cardiac damage. 99th Percentile Cutoff for Negative/Positive: Negative <= 0.03 Positive >= 0.04Performed By: #### TROP ####[address] [address]Rlxstrwrn Auto (Bld) [#/Vol]on 70-20-7202Snbzoqzcb (Bld) [#/Vol]Automated basophil count0.0-0.1FJoint Township District Memorial Hospital Basophils/100 WBC Auto (Bld)on 86-72-3686Shyxzifuv/100 WBC (Bld)Automated basophil %0.2-2.0[facility] HospitalCholesterol in LDL Calc [Mass/Vol]on 72-13-9113Svdxsuaarei in LDL [Mass/Vol]Cholesterol in LDL [Mass/volume] in Serum or Plasma by calculationSalem City Hospital Comment on above:<100 mg/dl YIPJJUP332-423 mg/dl NEAR OR ABOVE PJCNIZJ400-065 mg/dl BORDERLINE HKUT697-514 mg/dl HIGH>190 mg/dl VERY HIGHCholesterol in VLDL Calc [Mass/Vol]on 85-17-2868Mvbseqozrln in VLDL [Mass/Vol]Cholesterol in VLDL [Mass/volume] in Serum or Plasma by calculationSalem City Hospital Eosinophils/100 WBC Auto (Bld)on 20-54-5562Rnuciuefkuy/100 WBC (Bld)Automated eosinophil %0.9-7.0[facility] HospitalErythrocyte distribution width Auto (RBC) [Ratio]on 35-53-8634Dviatvhviim distribution width (RBC) [Ratio]Erythrocyte distribution width [Ratio] by Automated count11.0-15.0 [facility] HospitalEstimated glomerular filtration rate (GFR) non- Americanon 42-49-5444OXI/1.73 sq M.predicted among non-blacks MDRD (S/P/Bld) [Vol rate/Area]Estimated glomerular filtration rate (GFR) non- AmericanLow>=60 mL/min/1.73m 2FJoint Township District Memorial HospitalGlobulin Calc (S) [Mass/Vol]on 59-67-4852Aotzyqol (S) [Mass/Vol]Serum globulin measurement by calculation (mass/volume)[facility] HospitalHematocrit Auto (Bld) [Volume fraction]on 30-99-5686Twjkvnzxcn (Bld) [Volume fraction]Hematocrit [Volume Fraction] of Blood by Automated wdbsrOvl38.0-54.0[facility] HospitalHemoglobin [Mass/volume] in Bloodon 53-38-8113Djrcitvpaw (Bld) [Mass/Vol]Hemoglobin [Mass/volume] in ErzuhFtq37.0-18.0[facility] HospitalLaboratory - Chemistry and Chemistry - challengeon 04-14-2024 Bilirubin Ql (U)NegativeNEGATIVESalem City HospitalGlucose (U) [Mass/Vol]NegativeNEGATIVESalem City HospitalKetones Ql (U) NegativeNEGATIVESalem City HospitalpH (U)6.5 [pH]5.0-9.0[facility] Campuspecific gravity (U) [Rel density]1.0101.005-1.025 [facility] HospitalUrobilinogen Qn (U)0.2 {Raghu'U}/dL0.2-1.0 [facility] HospitalAlbumin [Mass/Vol]2.2 g/dLLow3.4-5.0[facility] HospitalALP [Catalytic activity/Vol]104 U/G23-339JwspkwtxmSalem City HospitalALT [Catalytic activity/Vol]8 U/INjo84-14JkqzvtanxSalem City HospitalAST [Catalytic activity/Vol]18 U/S25-42IubimokxySalem City HospitalBilirubin [Mass/Vol]0.4 mg/dL0.2-1.0[facility] HospitalCalcium [Mass/Vol]8.6 mg/dL8.5-10.1FJoint Township District Memorial Hospital Chloride [Moles/Vol]100 mmol/U47-063QxdusqxebSalem City HospitalCholesterol [Mass/Vol]107 mg/dL<=200[facility] HospitalCholesterol in HDL [Mass/Vol]48 mg/jX31-02HpdcjzmnqSalem City HospitalComment on above:> or =60 mg/dl - LOW CARDIOVASCULAR RISK<40 mg/dl - HIGH CARDIOVASCULAR RISKCO2 [Moles/Vol]29.7 mmol/L21.0-32.0[facility] HospitalCreatinine [Mass/Vol]1.43 mg/dLHigh0.70-1.30[facility] HospitalGFR/1.73 sq M.predicted MDRD (S/P/Bld) [Vol rate/Area]57 mL/min/{1.73_m2}Low>=60 mL/min/1.73m 2FJoint Township District Memorial HospitalGlucose [Mass/Vol]73 mg/dLLow 74-106Sal[facility] HospitalMagnesium [Mass/Vol]1.8 mg/dL1.8-2.4 [facility] HospitalNatriuretic peptide B (Bld) [Mass/Vol]4117.0 pg/mLCritically high<=1800.0[facility] HospitalComment on above: RESULTS CALLED TO LORENZA VELAZQUEZ,RNPotassium [Moles/Vol]3.6 mmol/L3.5-5.1 [facility] HospitalProtein [Mass/Vol]6.2 g/dLLow6.4-8.2FUniversity Hospitals Elyria Medical Centerodium [Moles/Vol]138 mmol/A171-857LotbunqimSalem City HospitalTriglyceride [Mass/Vol]61 mg/dL<=150[facility] HospitalTSH Qn10.469 m[IU]/LHigh0.358-3.740[facility] HospitalUrea nitrogen [Mass/Vol]22.0 mg/dLHigh7.0-18.0[facility] HospitalUrea nitrogen/Creatinine [Mass ratio]15.4 mg/mgSalem City Hospital Laboratory - Hematology and Cell countson 60-29-8286Mghycjbu granulocytes/100 WBC (Bld)0.3 %0.0-0.5FJoint Township District Memorial HospitalLaboratory - Specimen informationon 41-05-2203Nyolulsawa (U)CLEARCLEARFJoint Township District Memorial HospitalColor (U)LT. YELLOWYELLOWSalem City HospitalLaboratory - Urinalysison 16-42-0107Ksphmklye esterase Test strip Ql (U)MODERATEAbnormal NEGATIVESalem City HospitalMucus Ql (Urine sed)NONE SEENNONE SEEN [facility] HospitalNitrite Ql (U)NegativeNEGATIVESalem City HospitalProtein Ql (U)NegativeNEG/TRACESalem City HospitalLeukocytes [#/volume] corrected for nucleated erythrocytes in Blood by Automated counon 83-27-2953PWZ corrected for nucl RBC Auto (Bld) [#/Vol] Leukocytes [#/volume] corrected for nucleated erythrocytes in Blood by Automated coun4.0-11.0[facility] HospitalLymphocytes Auto (Bld) [#/Vol]on 36-64-5792Ingtqzuarpj (Bld) [#/Vol]Lymphocytes [#/volume] in Blood by Automated count1.2-3.8[facility] HospitalLymphocytes/100 WBC Auto (Bld)on 42-08-1477Mhrflwahfnl/100 WBC (Bld)Lymphocytes/100 leukocytes in Blood by Automated count20.5-60.0[facility] HospitalMCH Auto (RBC) [Entitic mass]on 83-06-1150PQO (RBC) [Entitic mass]MCH [Entitic mass] by Automated count 25.9-34.0[facility] HospitalMCHC Auto (RBC) [Mass/Vol]on 39-22-7601ACTN (RBC) [Mass/Vol]MCHC [Mass/volume] by Automated count29.9-35.2 [facility] HospitalMCV Auto (RBC) [Entitic vol]on 45-40-1474RXG (RBC) [Entitic vol]MCV [Entitic volume] by Automated itspjZymh70.0-94.0[facility] HospitalMonocytes Auto (Bld) [#/Vol]on 37-51-1067Ogzzlfhnf (Bld) [#/Vol]Automated blood monocyte count0.3-0.8[facility] Monocytes/100 WBC Auto (Bld)on 25-65-7621Xuuuvibva/100 WBC (Bld)Automated monocyte %1.7-12.0[facility] HospitalNeutrophils Auto (Bld) [#/Vol]on 69-67-6177Luwaashmddl (Bld) [#/Vol]Neutrophils [#/volume] in Blood by Automated count1.4-6.5FJoint Township District Memorial HospitalNeutrophils/100 WBC Auto (Bld)on 98-57-6633Xanjnxzmnfd/100 WBC (Bld)Automated neutrophil %43.0-75.0 [facility] HospitalNo Panel Informationon 03-01-7949Mykbo Bacteria SMALL #/HPFAbnormalNONE SEENSalem City HospitalUrine Culture ReflexedALREADY ORDEREDSalem City HospitalUrine Occult Blood NegativeNEGATIVESalem City HospitalUrine Other CastsNONE SEEN #/LPFNONE [facility] HospitalUrine Other CrystalsNone Seen #/HPFNone [facility] CampusUrine RBCNONE SEEN #/HPF0-2 [facility] HospitalUrine Squamous Epithelial CellsNONE SEEN #/LPF NONE/RARESalem City HospitalUrine UPT88-67 #/HPFAbnormalNONE SEEN [facility] HospitalALREADY ORDEREDSal[facility] City HospitalNONE SEEN #/LPFNONE/RARESalem City HospitalNone Seen #/HPF 0-2FUniversity Hospitals Elyria Medical CenterMALL #/HPFAbnormalNONE SEENSalem City HospitalNegativeNEG/TRACESalem City HospitalCLEAR CLEARSalem City HospitalLT. YELLOWYELLOWSalem City HospitalMODERATEAbnormalNEGATIVESalem City HospitalNONE SEENNONE SEENSal[facility] City Hospital6.55.0-9.0[facility] 1.0101.005-1.025[facility]0.2 EU/dL0.2-1.0[facility]10-20 #/HPFAbnormalLITTLE COLORADO MEDICAL CENTERE [facility] HospitalTroponin I High Ivbsxxhsycg244.8 pg/mLCritically high4.0-76.1FJoint Township District Memorial HospitalComment on above:RESULTS CALLED TO Yoli WillRNCUT-OFF POINTS HAVE BEEN ESTABLISHED BASED ON THE FOURTHUNIVERSAL DEFINITION OF MYOCARDIAL INFARCTION. THE UPPERREFERENCE LIMIT (URL) OF TROPONIN, DEFINED THE 99THPERCENTILE OF cTnI DISTRIBUTION IN A REFERENCE POPULATION,HAS BEEN CONFIRMED THE DECISION THRESHOLD FOR MIDIAGNOSIS.99TH PERCENTILE = 76.2 PG/MLNOTE: HIGH-SENSITIVITY TROPONIN ASSAY IS NOT INTENDED TOBEUSED IN ISOLATION BUT SHOULD BE INTERPRETED IN CONJUNCTIONWITH OTHER DIAGNOSTIC AND CLINICAL INFORMATION.121.8 pg/mLCritically high4.0-76.1FJoint Township District Memorial Hospital Eosinophils # (Auto)0.4 10 3/uL0.0-0.7FJoint Township District Memorial HospitalImmature Granulocyte # (Auto)0.02 10 3/uL0.00-0.03[facility]10.469 u[iU]/mLHigh0.358-3.740[facility]4117.0 pg/mLCritically high<=1800.0[facility]1.8 mg/dL1.8-2.4FJoint Township District Memorial Hospital107 mg/dL<=200[facility]48 mg/dL40-60 [facility]2.2 g/dLLow3.4-5.0[facility]0.4 10 3/uL0.0-0.7FJoint Township District Memorial Hospital104 U/Z83-708JdnpbgcatSalem City Hospital61 mg/dL<=150[facility]8 U/LLow 16-63[facility]18 U/E37-55AbqfzrbzbSalem City Hospital15.4FJoint Township District Memorial Hospital0.02 10 3/uL0.00-0.03[facility]22.0 mg/dLHigh7.0-18.0[facility] 0.3 %0.0-0.5FJoint Township District Memorial Hospital8.6 mg/dL8.5-10.1FJoint Township District Memorial Hospital100 mmol/B92-390JmgbvweoqSalem City Hospital29.7 mmol/L 21.0-32.0[facility]1.43 mg/dLHigh0.70-1.30[facility]57Low>=60 mL/min/1.73m 2FJoint Township District Memorial Hospital 73 mg/rSXzd14-998MlvvjnbibSalem City Hospital3.6 mmol/L3.5-5.1FJoint Township District Memorial Hospital138 mmol/T145-129EzeucwuquSalem City Hospital0.4 mg/dL0.2-1.0[facility]6.2 g/dLLow6.4-8.2FJoint Township District Memorial HospitalPlatelet mean volume Auto (Bld) [Entitic vol]on 86-24-9911Sohrpofp mean volume (Bld) [Entitic vol]Platelet mean volume [Entitic volume] in Blood by Automated countLow9.5-13.5FJoint Township District Memorial Hospital Platelets Auto (Bld) [#/Vol]on 77-62-3693Ussuoypqh (Bld) [#/Vol]Platelets [#/volume] in Blood by Automated sgxne946-604ZumsthbnmSalem City Hospital RBC Auto (Bld) [#/Vol]on 58-01-4600BXN (Bld) [#/Vol]Erythrocytes [#/volume] in Blood by Automated countLow4.70-6.10[facility] West Campuserum or plasma albumin/globulin mass ratioon 85-49-1412Smriftt/Globulin [Mass ratio] Serum or plasma albumin/globulin mass ratioSalem City Hospital Serum or plasma anion gap determinationon 42-94-8122Ijfvi gap [Moles/Vol]Serum or plasma anion gap determinationTrinity Health System West Campuserum or plasma total cholesterol/high density lipoprotein (HDL) cholesterol mass william 21-07-0511Unzauxrevet.total/Cholesterol in HDL [Mass ratio]Serum or plasma total cholesterol/high density lipoprotein (HDL) cholesterol mass ratSalem City HospitalComment on above:3.3 - 4.4 LOW RISK4.4 - 7.1 AVERAGE RISK7.1 - 11.0 MODERATE RISK>11.0 HIGH RISKActivated partial thromboplastin time (aPTT) in platelet poor plasma by coagulation aon 56-60-3287nBZP Coag (PPP) [Time]Activated partial thromboplastin time (aPTT) in platelet poor plasma by coagulation a22.3-36.2FJoint Township District Memorial HospitalBasophils Auto (Bld) [#/Vol]on 38-08-7271Dysgybpky (Bld) [#/Vol]Automated basophil count0.0-0.1 [facility] HospitalBasophils/100 WBC Auto (Bld)on 04-13-2024 Basophils/100 WBC (Bld)Automated basophil %0.2-2.0[facility] HospitalEosinophils/100 WBC Auto (Bld)on 26-54-4196Nuweivrjwtw/100 WBC (Bld) Automated eosinophil %0.9-7.0[facility] HospitalErythrocyte distribution width Auto (RBC) [Ratio]on 89-35-5956Zaguzmnvvvw distribution width (RBC) [Ratio]Erythrocyte distribution width [Ratio] by Automated count11.0-15.0 [facility] HospitalEstimated glomerular filtration rate (GFR) non- Americanon 00-65-2014IVW/1.73 sq M.predicted among non-blacks MDRD (S/P/Bld) [Vol rate/Area]Estimated glomerular filtration rate (GFR) non- AmericanLow>=60 mL/min/1.73m 2FJoint Township District Memorial HospitalGlobulin Calc (S) [Mass/Vol]on 56-14-6104Dpnzjsnj (S) [Mass/Vol]Serum globulin measurement by calculation (mass/volume)[facility] HospitalHematocrit Auto (Bld) [Volume fraction]on 55-87-9782Kzfhicniab (Bld) [Volume fraction]Hematocrit [Volume Fraction] of Blood by Automated zyydpPcm48.0-54.0[facility] HospitalHemoglobin [Mass/volume] in Bloodon 72-47-0639Odhsnvtenu (Bld) [Mass/Vol]Hemoglobin [Mass/volume] in PvzqxHbj08.0-18.0[facility] HospitalINR in Platelet poor plasma by Coagulation assayon 15-70-0675VZS Coag (PPP) [Relative time]INR in Platelet poor plasma by Coagulation assay [facility] HospitalComment on above:DESIRED INR:2.0-3.0 CONDITIONS NOT LISTED BELOW2.5-3.5 FOR PROSTHETIC HEART VALVE REPLACEMENT2.5-3.5 RECURRENT THROMBOSISLaboratory - Chemistry and Chemistry - challengeon 92-22-2052Zkizesc [Mass/Vol]2.5 g/dLLow3.4-5.0[facility] HospitalALP [Catalytic activity/Vol]118 U/RCzjq52-566JbfejmuivSalem City HospitalALT [Catalytic activity/Vol]10 U/OAmn92-30YkrfcxqwoSalem City HospitalAST [Catalytic activity/Vol]25 U/J45-88FxulzgswvSalem City HospitalBilirubin [Mass/Vol]0.5 mg/dL0.2-1.0[facility] HospitalCalcium [Mass/Vol]8.9 mg/dL 8.5-10.1FJoint Township District Memorial HospitalChloride [Moles/Vol]99 mmol/L98-107 [facility] HospitalCO2 [Moles/Vol]31.5 mmol/L21.0-32.0[facility] HospitalCreatinine [Mass/Vol]1.62 mg/dLHigh0.70-1.30[facility] HospitalGFR/1.73 sq M.predicted MDRD (S/P/Bld) [Vol rate/Area]50 mL/min/{1.73_m2}Low>=60 mL/min/1.73m 2FJoint Township District Memorial HospitalGlucose [Mass/Vol]80 mg/tK86-275ZclfszgpsSalem City HospitalNatriuretic peptide B (Bld) [Mass/Vol]2978.0 pg/mLCritically high<=1800.0[facility] HospitalComment on above:RESULTS CALLED TO MARIA INES CARUSO RN IN SURGERY BY Ivis Tobias at 1053Potassium [Moles/Vol]4.5 mmol/L3.5-5.1FJoint Township District Memorial HospitalProtein [Mass/Vol]6.9 g/dL6.4-8.2FJoint Township District Memorial Hospital Sodium [Moles/Vol]137 mmol/K410-749YqwkywzpbSalem City HospitalUrea nitrogen [Mass/Vol]21.0 mg/dLHigh7.0-18.0[facility] HospitalUrea nitrogen/Creatinine [Mass ratio]13.0 mg/mgSalem City Hospital Laboratory - Hematology and Cell countson 12-24-0681Buakscfq granulocytes/100 WBC (Bld)0.3 %0.0-0.5FJoint Township District Memorial HospitalLeukocytes [#/volume] corrected for nucleated erythrocytes in Blood by Automated counon 00-01-4898RCP corrected for nucl RBC Auto (Bld) [#/Vol]Leukocytes [#/volume] corrected for nucleated erythrocytes in Blood by Automated coun4.0-11.0[facility] HospitalLymphocytes Auto (Bld) [#/Vol]on 59-28-4322Sghzcoygdmj (Bld) [#/Vol]Lymphocytes [#/volume] in Blood by Automated count1.2-3.8[facility] HospitalLymphocytes/100 WBC Auto (Bld)on 04-13-2024 Lymphocytes/100 WBC (Bld)Lymphocytes/100 leukocytes in Blood by Automated count 20.5-60.0[facility] HospitalMCH Auto (RBC) [Entitic mass]on 64-00-2903ZHW (RBC) [Entitic mass]MCH [Entitic mass] by Automated count25.9-34.0 [facility] HospitalMCHC Auto (RBC) [Mass/Vol]on 20-36-7801SMWJ (RBC) [Mass/Vol]MCHC [Mass/volume] by Automated count29.9-35.2FJoint Township District Memorial HospitalMCV Auto (RBC) [Entitic vol]on 95-14-3082OAJ (RBC) [Entitic vol] MCV [Entitic volume] by Automated lghmqLfey89.0-94.0[facility] HospitalMonocytes Auto (Bld) [#/Vol]on 45-02-0250Cauqbaumh (Bld) [#/Vol]Automated blood monocyte count0.3-0.8[facility] HospitalMonocytes/100 WBC Auto (Bld)on 74-12-0652Gopkgdaxz/100 WBC (Bld)Automated monocyte %1.7-12.0 [facility] HospitalNeutrophils Auto (Bld) [#/Vol]on 04-13-2024 Neutrophils (Bld) [#/Vol]Neutrophils [#/volume] in Blood by Automated count 1.4-6.5FJoint Township District Memorial HospitalNeutrophils/100 WBC Auto (Bld)on 42-33-8152Wvtklukjjny/100 WBC (Bld)Automated neutrophil %43.0-75.0[facility] HospitalNo Panel Informationon 05-02-0060Vlygfhlogfs # (Auto)0.4 10 3/uL0.0-0.7FJoint Township District Memorial HospitalImmature Granulocyte # (Auto)0.02 10 3/uL0.00-0.03[facility] HospitalTroponin I High Sensitivity 123.1 pg/mLCritically high4.0-76.1FJoint Township District Memorial HospitalComment on above:RESULTS CALLED TO Yoli Will RNCUT-OFF POINTS HAVE BEEN ESTABLISHED BASED ON THE FOURTHUNIVERSAL DEFINITION OF MYOCARDIAL INFARCTION. THE UPPERREFERENCE LIMIT (URL) OF TROPONIN, DEFINED THE 99THPERCENTILE OF cTnI DISTRIBUTION IN A REFERENCE POPULATION,HAS BEEN CONFIRMED THE DECISION THRESHOLD FOR MIDIAGNOSIS.99TH PERCENTILE = 76.2 PG/MLNOTE: HIGH-SENSITIVITY TROPONIN ASSAY IS NOT INTENDED TOBEUSED IN ISOLATION BUT SHOULD BE INTERPRETED IN CONJUNCTIONWITH OTHER DIAGNOSTIC AND CLINICAL INFORMATION.123.1 pg/mLCritically high4.0-76.1 [facility]2978.0 pg/mLCritically high<=1800.0[facility]0.4 10 3/uL0.0-0.7FJoint Township District Memorial Hospital2.5 g/dLLow3.4-5.0[facility]118 U/VIwcu91-463RmfdkzyznSalem City Hospital10 U/ROuc43-28SdqndjgtnSalem City Hospital25 U/L 15-37[facility]0.02 10 3/uL0.00-0.03[facility]13.0[facility]0.3 %0.0-0.5FJoint Township District Memorial Hospital21.0 mg/dLHigh7.0-18.0[facility] 8.9 mg/dL8.5-10.1FJoint Township District Memorial Hospital99 mmol/A32-569IrbmfbygpSalem City Hospital31.5 mmol/L21.0-32.0[facility]1.62 mg/dLHigh0.70-1.30[facility]50Low>=60 mL/min/1.73m 2 [facility]80 mg/yL55-956PhfhglbvwSalem City Hospital 4.5 mmol/L3.5-5.1FJoint Township District Memorial Hospital137 mmol/F371-258QwlignpssSalem City Hospital0.5 mg/dL0.2-1.0[facility]6.9 g/dL 6.4-8.2FJoint Township District Memorial HospitalPlatelet mean volume Auto (Bld) [Entitic vol]on 05-38-9952Xbesizfy mean volume (Bld) [Entitic vol]Platelet mean volume [Entitic volume] in Blood by Automated count9.5-13.5FJoint Township District Memorial HospitalPlatelets Auto (Bld) [#/Vol]on 09-14-6909Ekwpsvcfy (Bld) [#/Vol]Platelets [#/volume] in Blood by Automated nxjyt293-274KyivehewjSalem City Hospital Prothrombin time (PT)on 51-89-8762IT Coag (PPP) [Time]Prothrombin time (PT)High 9.0-11.6FJoint Township District Memorial HospitalRBC Auto (Bld) [#/Vol]on 62-27-9695CAD (Bld) [#/Vol]Erythrocytes [#/volume] in Blood by Automated countLow4.70-6.10 [facility] Campuserum or plasma albumin/globulin mass ratioon 39-93-2128Rskdazz/Globulin [Mass ratio]Serum or plasma albumin/globulin mass ratioTrinity Health System West Campuserum or plasma anion gap determinationon 24-26-2337Fqroc gap [Moles/Vol]Serum or plasma anion gap determinationSalem City HospitalMagnetic resonance imaging reportOrdered By: Palmer Dejesus on 29-88-2936Wtbtr reportOHIOHEALTH HARD[facility] [place] [address] [place] [address] MRI Report Signed Patient: Tavo Wallis Jr MR# : [id number] : 1940 Acct:[id number] Age/Sex: 83 / M ADM Date: 5 Loc: MR Room: Type: [facility] Attending Dr: Randi Batista MD Copies to: Randi Burris MD~ Ordering Provider: Randi Burris MD Date of Service: 04/03/24 MR/MR lumbar spine wo con: [id number] ([id number]) XR/XR pre/post mri xray: PRE AND POST MRI IMAGING 2 views of the lumbar spine and MRI of the lumbar spine performed without contrast COMPARISON: MRI lumbar spine 09/27/2023 from outside facility FINDINGS: X-RAY LUMBAR SPINE: Mild levocurvature upper lumbar spine. Moderate severe multilevel degenerative changes with multilevel disc space narrowing. Anterolisthesis L4-L5 6 mm. Retrolisthesis L1 on L2 3 mm. Aortic vascular locations. Left hip arthroplasty. Surgical clips within the region of the prostate. Moderate to large burden of stool. Evidence of multilevel decompressive laminectomy L1-L5. Thereare multilevel facet arthropathy. Osteopenia. MRI LUMBAR SPINE: Iliolumbar ligaments noted on image 12, series 6. This corresponds to the L4-5 disc space. There is mild accentuation of normal lumbar lordosis. Presumed areas of of T2 signal involving the left psoas muscle and the dorsal paraspinal musculature as noted on prior imaging studies. There is a new fluid collection within the laminectomy bed noted with thick mitchell noted measuring 10 cm in craniocaudal dimension and up to 3.2 cm and transverse dimension and 4.2 cm in AP dimension. Right renal T2 hyperintensities noted suggestive of cysts. Diffusely diminished marrow signal likely related to yellow marrow conversion. No evidence of abnormal marrow signal to suggest compression fracture. The vertebral heights demonstrate mild loss of height T12 and L1. There are Schmorl's nodes notably superior plate of T12. The conus medullaris terminates at mid L2. Slight heterogeneous appearance of the central canal inferior endplate of L2-L5 spaces posteriorly to arachnoiditispossibly related to postsurgical changes and nerve root clumping, this appears similar to the prior examination.. Best seen on the current current examination, there is anterolisthesis of L4-L5 5 mm. Anterolisthesis L3-L4 to 3 mm. The retrolisthesis L2 on L3 6 mm. T11-T12: Broad-based disc bulge. Minimal foraminal encroachment. Mild facet arthropathy. Minimal central canal narrowing. T12-L1: Broad-based disc bulge with right paracentral disc osteophyte complex. Mild neural from narrowing. Bilateral facet arthropathy. Mild central canal stenosis. L1-2: Circumferential disc bulge. Mild neural from narrowing. Minimal ventral canal effacement. Bulky left far lateral disc osteophyte complex formation. L2-L3: Retrolisthesis with slight uncovering of the posterior disc. Circumferential bulge noted with subarticular zone effacement bilaterally. There is moderate to severe central canal narrowing. Moderate to severe right and moderate left neural foraminal narrowing. L3-L4: Circumferential disc bulge asymmetric towards the right extending to the foraminal and extraforaminal and lateral zone. Sucucovu-zo-stejvs right and at least moderate left neural foraminal narrowing. Bilateral facet arthropathy. There is moderate to severe central canal narrowing and subarticular recess encroachment. L4-5: Circumferential disc bulge. 6 mm anterolisthesis and slight uncovering the posterior disc. Disc osteophyte complexes extend both foramina regions causing moderate to severe encroachment bilaterally. There is moderate to severe central canal narrowing. L5-S1: Preserved disc space. No focal protrusion. No central canal or neural from narrowing. Lvoa-xm-ebetsowb facet degeneration. MR/MR lumbar spine wo con IMPRESSION: Interval decompressive laminectomy upper lumbar levels with likely postoperativeseroma or resolvinghematoma within the laminectomy bed. Clinical correlation is recommended. 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 Multilevel neural foraminal encroachment moderate to moderate to severe as notedabove. No evidence of acute compression fracture Impression dictated by: Palmer Dejesus M.D.04/03/2024 5:02 PM Dictation Location: [facility]23 Transcribed By: [facility] 04/03/241701 Dictated By: Palmer Dejesus MD 04/03/24 1630 Signed By: 04/03/241701 [facility] Work Phone: xr pre/post mri xrayon 63-06-8270XY pre/post mri xray NormalThe Regional Hospital Of ScrantonBasic Metabolic Panelon 12-17-4228Izzyy gap [Moles/Vol]12.7 mmol/LNormal6.0-15.0The [facility] Hospital Of ScrantonComment on above:Performed By: #### BMP ####[address] [place] [address] USACalcium [Mass/Vol]8.2 mg/dLLow8.6-10.3The [facility] Hospital Of ScrantonComment on above:Performed By: #### BMP ####[address] [place] [address] USAChloride [Moles/Vol]93 mmol/L Qde63-742Bvc [facility] Of ScrantonComment on above:Performed By: #### BMP ####[address] [place] [address] USACO2 [Moles/Vol]30.7 mmol/LNvberr35.0-31.0The [facility] Hospital Of ScrantonComment on above:Performed By: #### BMP ####[address] [place] [address] USACreatinine [Mass/Vol]2.22 mg/dLHigh0.70-1.30The [facility] Hospital Of ScrantonComment on above:Performed By: #### BMP ####[address] [place] [address] USACreatinine Clr Calc Uyopykvd84.04NoCritical access hospital Physician GroupComment on above:Result Comment: PERFORMED BY:[address] [place], [place] [phone] MEDICAL DIRECTORJAJA CATES M.D. Performed By: #### BMP ####[address] [address] USAEstimated GFR28.859 mL/MinNoCritical access hospital Physician GroupComment on above:Performed By: #### BMP ####[address] [address] USAGlucose [Mass/Vol]73 mg/dL Txrqje08-541Xyi [facility] Physician GroupComment on above:Result Comment: Random Glucose Reference Range is dependent on time and content of last meal. Glucose of more than 200 mg/dL in a nonstressed, ambulatory subject supports the diagnosis of Diabetes Mellitus. ADA recommended reference rangePerformed By: #### BMP ####[address] [address] USAPotassium [Moles/Vol]3.4 mmol/LLow3.5-5.1The [facility] Physician GroupComment on above:Performed By: #### BMP ####[address] [address] USASodium [Moles/Vol]133 mmol/XGzs190-536Jjb [facility] Physician GroupComment on above:Performed By: #### BMP ####[address] [address] USAUrea nitrogen [Mass/Vol]40 mg/dLHigh7-25The [facility] Physician GroupComment on above:Performed By: #### BMP ####[address] [address] [place] Calcium [Mass/volume] in Serum or PlasmaOrdered By: Michele Knight on 03-15-2024 Calcium [Mass/Vol]Calcium [Mass/volume] in Serum or PlasmaLow8.6-10.3FJoint Township District Memorial HospitalCarbon dioxide, total [Moles/volume] in Serum or Plasma Ordered By: Michele Knight on 42-68-7058WR7 [Moles/Vol]Carbon dioxide, total [Moles/volume] in Serum or Buwiak16.0-31.0[facility] Chloride [Moles/volume] in Serum or PlasmaOrdered By: Michele Knight on 03-15-2024 Chloride [Moles/Vol]Chloride [Moles/volume] in Serum or VtkeqtIvu99-004MnjixuzoeSalem City HospitalCreatinine [Mass/volume] in Serum or PlasmaOrdered By: Michele Knight on 10-43-5629Yhdzloswnu [Mass/Vol]Creatinine [Mass/volume] in Serum or PlasmaHigh0.70-1.30[facility] HospitalGlucose [Mass/volume] in Serum or PlasmaOrdered By: Michele Knight on 13-34-1760Wzbprqm [Mass/Vol]Glucose [Mass/volume] in Serum or Nlvnvu71-216IjoarhomzSalem City HospitalComment on above:ADA recommended reference rangeRandom Glucose Reference Range is dependent on time and content of last meal. Glucose of more than 200 mg/dL in a nonstressed, ambulatory subject supports the diagnosisof Diabetes Mellitus.No Panel InformationOrdered By: Michele Knight on 55-23-6137Hxjjzxeax GFR (CKD-EPI) 28.859 mL/MinSalem City HospitalPharmacy Creatinine Clearance (Chem26.04[facility]28.859 mL/MinSalem City Hospital26.04[facility] HospitalPotassium [Moles/volume] in Serum or PlasmaOrdered By: Michele Knight on 00-08-4306Guuvrjlxi [Moles/Vol] Potassium [Moles/volume] in Serum or PlasmaLow3.5-5.1FUniversity Hospitals Elyria Medical Centererum or plasma anion gap determinationOrdered By: Michele Knight on 07-49-0710Wklzy gap [Moles/Vol]Serum or plasma anion gap determination6.0-15.0 [facility] West Campusodium [Moles/volume] in Serum or PlasmaOrdered By: Michele Knight on 16-59-7525Qvrxxd [Moles/Vol]Sodium [Moles/volume] in Serum or YqfunrXso146-647ElmbyacsnSalem City HospitalUrea nitrogen [Mass/volume] in Serum or PlasmaOrdered By: Michele Knight on 44-42-3951Joct nitrogen [Mass/Vol] Urea nitrogen [Mass/volume] in Serum or PlasmaHigh7-25[facility] HospitalBasic Metabolic Panelon 34-83-2370Wdezy gap [Moles/Vol]11.4 mmol/LNormal 6.0-15.0The [facility] Physician GroupComment on above:Performed By: #### BMP ####[address] [address] USACalcium [Mass/Vol]8.1 mg/dLLow8.6-10.3The [facility] Physician GroupComment on above: Performed By: #### BMP ####[address] [address] USAChloride [Moles/Vol]93 mmol/QTik03-281Ngu [facility] Physician GroupComment on above:Performed By: #### BMP ####[address] [address] USACO2 [Moles/Vol]29.7 mmol/L Wmepqr08.0-31.0The [facility] Physician GroupComment on above:Performed By: #### BMP ####[address] [address] [place] Creatinine [Mass/Vol]2.39 mg/dLHigh0.70-1.30The [facility] Physician GroupComment on above:Performed By: #### BMP ####[address] [address] USACreatinine Clr Calc Qochuldf38.73NormSt. Rita's Hospitale [facility] Physician GroupComment on above:Result Comment: PERFORMED BY:[address] [place], [place] [phone] MEDICAL DIRECTORJAJA CATES M.D.Performed By: #### BMP ####[address] [address] USAEstimated GFR26.413 mL/Min NormalThe [facility] Physician GroupComment on above:Performed By: #### BMP ####[address] [address] USAGlucose [Mass/Vol]80 mg/iQDrjeue83-781Woa [facility] Physician GroupComment on above: Result Comment: Random Glucose Reference Range is dependent on time and content of last meal. Glucose of more than 200 mg/dL in a nonstressed, ambulatory subject supports the diagnosis of Diabetes Mellitus. ADA recommended reference rangePerformed By: #### BMP ####[address] [address] USAPotassium [Moles/Vol]3.1 mmol/LLow3.5-5.1The [facility] Physician GroupComment on above:Performed By: #### BMP ####[address] [address] USASodium [Moles/Vol]131 mmol/LWhl097-349Ipm [facility] Physician GroupComment on above:Performed By: #### BMP ####[address] [address] USAUrea nitrogen [Mass/Vol]41 mg/dLHigh7-25The [facility] Physician GroupComment on above:Performed By: #### BMP ####[address] [address] USABasic Metabolic Panelon 61-40-7175Gqimf gap [Moles/Vol]11.2 mmol/LNormal6.0-15.0The [facility] Physician GroupComment on above:Performed By: #### BMP ####[address] [address] USACalcium [Mass/Vol]8.7 mg/dLNormal8.6-10.3The [facility] Physician GroupComment on above:Performed By: #### BMP ####[address] [address] USAChloride [Moles/Vol] 91 mmol/WMhs62-947Hxe [facility] Physician GroupComment on above:Performed By: #### BMP ####[address] [place] [address] USACO2 [Moles/Vol]30.0 mmol/NJjokue99.0-31.0The [facility] Physician GroupComment on above:Performed By: #### BMP ####[address] [address] USACreatinine [Mass/Vol]2.27 mg/dLHigh0.70-1.30The [facility] Physician GroupComment on above:Performed By: #### BMP ####[address] [address] USACreatinine Clr Calc Fdoqvfca79.95NoCritical access hospital Physician GroupComment on above:Result Comment: PERFORMED BY:[address] [place], [place] [phone] MEDICAL DIRECTORJAJA CATES M.D. Performed By: #### BMP ####[address] [address] USAEstimated GFR28.097 mL/MinNoCritical access hospital Physician [facility] HospitalComment on above:Performed By: #### BMP ####[address] [address] USAGlucose [Mass/Vol]143 mg/dL Iipw54-744Alf [facility] Physician GroupComment on above:Result Comment: Random Glucose Reference Range is dependent on time and content of last meal. Glucose of more than 200 mg/dL in a nonstressed, ambulatory subject supports the diagnosis of Diabetes Mellitus. ADA recommended reference rangePerformed By: #### BMP ####[address] [address] USAPotassium [Moles/Vol]3.2 mmol/LLow3.5-5.1The [facility] Physician GroupComment on above:Performed By: #### BMP ####[address] [address] USASodium [Moles/Vol]129 mmol/GXhp767-089Azc [facility] Physician GroupComment on above:Performed By: #### BMP ####[address] [place] [address] USAUrea nitrogen [Mass/Vol]36 mg/dLHigh7-25The [facility] Physician GroupComment on above:Performed By: #### BMP ####[address] [address] [facility] Basic Metabolic Panelon 96-53-0858Xtjed gap [Moles/Vol]10.1 mmol/LNormal6.0-15.0 The [facility] Physician GroupComment on above:Performed By: #### BMP ####[address] [address] USACalcium [Mass/Vol]8.4 mg/dLLow8.6-10.3The [facility] Physician GroupComment on above: Performed By: #### BMP ####[address] [address] USAChloride [Moles/Vol]96 mmol/FIyl32-023Ztt [facility] Physician GroupComment on above:Performed By: #### BMP ####[address] USACO2 [Moles/Vol]29.5 mmol/L Fokhvo62.0-31.0The [facility] Physician GroupComment on above:Performed By: #### BMP ####[address] [address] [place] Creatinine [Mass/Vol]2.33 mg/dLHigh0.70-1.30The [facility] Physician GroupComment on above:Performed By: #### BMP ####[address] [address] USACreatinine Clr Calc Yxofabnn83.07NormalThe [facility] Physician GroupComment on above:Result Comment: PERFORMED BY:[address] [place], [place] [phone] MEDICAL DIRECTORJAJA CATES M.D.Performed By: #### BMP ####[address] [address] USAEstimated GFR27.232 mL/Min NormalThe [facility] Physician GroupComment on above:Performed By: #### BMP ####[address] [address] USAGlucose [Mass/Vol]79 mg/pBKugscm24-610Rli [facility] Physician GroupComment on above: Result Comment: Random Glucose Reference Range is dependent on time and content of last meal. Glucose of more than 200 mg/dL in a nonstressed, ambulatory subject supports the diagnosis of Diabetes Mellitus. ADA recommended reference rangePerformed By: #### BMP ####[address] USAPotassium [Moles/Vol]3.6 mmol/LNormal3.5-5.1The [facility] Physician GroupComment on above:Performed By: #### BMP ####[address] USASodium [Moles/Vol]132 mmol/XBdv297-421Lec [facility] Physician GroupComment on above:Performed By: #### BMP ####[address] [address] USAUrea nitrogen [Mass/Vol]35 mg/dLHigh7-25The [facility] Physician GroupComment on above:Performed By: #### BMP ####[address] [address] USABasic Metabolic Panelon 64-28-3279Swshr gap [Moles/Vol]11.8 mmol/LNormal6.0-15.0The [facility] Physician GroupComment on above:Performed By: #### BMP ####[address] USACalcium [Mass/Vol]8.3 mg/dLLow8.6-10.3The [facility] Physician GroupComment on above:Performed By: #### BMP ####[address] [address] USAChloride [Moles/Vol]100 mmol/L Wiaamk67-626Jkl [facility] Physician GroupComment on above:Performed By: #### BMP ####[address] [address] USACO2 [Moles/Vol]28.4 mmol/FPpxwfa83.0-31.0The [facility] Physician GroupComment on above:Performed By: #### BMP ####[address] [address] USACreatinine [Mass/Vol]2.69 mg/dLHigh0.70-1.30The [facility] Physician GroupComment on above:Performed By: #### BMP ####[address] USACreatinine Clr Calc Yuhebvve12.96NormHCA Florida Clearwater Emergency Physician GroupComment on above:Result Comment: PERFORMED BY:[address] [place], [place] [phone] MEDICAL DIRECTORJAJA CATES M.D. Performed By: #### BMP ####[address] [address] USAEstimated GFR22.919 mL/MinNoCritical access hospital Physician [facility] HospitalComment on above:Performed By: #### BMP ####[address] [address] USAGlucose [Mass/Vol]97 mg/dL Qcbzog05-270Csj [facility] Physician [facility] HospitalComment on above:Result Comment: Random Glucose Reference Range is dependent on time and content of last meal. Glucose of more than 200 mg/dL in a nonstressed, ambulatory subject supports the diagnosis of Diabetes Mellitus. ADA recommended reference rangePerformed By: #### BMP ####[address] [address] USAPotassium [Moles/Vol]4.2 mmol/LNormal3.5-5.1The [facility] Physician Group Comment on above:Performed By: #### BMP ####[address] [address] USASodium [Moles/Vol]136 mmol/BIepcwx234-376Nny [facility] Physician [facility] HospitalComment on above:Performed By: #### BMP ####[address] USAUrea nitrogen [Mass/Vol]39 mg/dLHigh7-25The [facility] Physician GroupComment on above: Performed By: #### BMP ####[facility] [place] [address] USAAlanine aminotransferase [Enzymatic activity/volume] in Serum or PlasmaOrdered By: Marcos Martin on 97-76-5664OFZ [Catalytic activity/Vol]Alanine aminotransferase [Enzymatic activity/volume] in Serum or Plasma7-52[facility] HospitalAlbumin [Mass/volume] in Serum or Plasma by Bromocresol green (BCG) dye binding methoOrdered By: Marcos Martin on 36-13-4227Anpaebs BCG dye [Mass/Vol]Albumin [Mass/volume] in Serum or Plasma by Bromocresol green (BCG) dye binding methoLow3.5-5.7FJoint Township District Memorial HospitalAlkaline phosphatase [Enzymatic activity/volume] in Serum or PlasmaOrdered By: Marcos Martin on 33-26-7368NJT [Catalytic activity/Vol]Alkaline phosphatase [Enzymatic activity/volume] in Serum or GecdkaKpnt33-901ZypckcsudSalem City HospitalAppearance of UrineOrdered By: Marcos Martin on 45-28-8694Bwmqlpoxit (U)Urine appearanceCleOhioHealth Shelby HospitalAspartate aminotransferase [Enzymatic activity/volume] in Serum or PlasmaOrdered By: Marcos Martin on 81-61-7951POV [Catalytic activity/Vol]Aspartate aminotransferase [Enzymatic activity/volume] in Serum or Maljgi94-62HopjvwhmzSalem City HospitalB-Type Natriuretic Peptideon 63-02-8318Nzkoqrtuyhr peptide B (Bld) [Mass/Vol]254.0 pg/mLHigh5-100The [facility] Physician GroupComment on above: Result Comment: PERFORMED BY:[address] [place], [place] [phone] MEDICAL DIRECTORJAJA WHITE M.D.Performed By: #### CBC, CK, PT, BNP, PTT, HS TROP ####[facility] [place] [address] USABacteria [Presence] in Urine by AutomatedOrdered By: Marcos Martin on 09-18-3507Sttozbaq Auto Ql (U) Bacteria [Presence] in Urine by AutomatedNone [facility] Barber[facility] CampusBasic Metabolic Panelon 69-18-7411Romva gap [Moles/Vol]8.3 mmol/LNormal 6.0-15.0The [facility] Physician GroupComment on above:Performed By: #### CUBLD, LACTIC, HEPATIC, TSH3, BMP ####[address] [place] [address] USACalcium [Mass/Vol]8.3 mg/dLLow8.6-10.3The [facility] Physician GroupComment on above:Performed By: #### CUBLD, LACTIC, HEPATIC, TSH3, BMP ####[address] [address] [place] Chloride [Moles/Vol]98 mmol/XGnioai24-274Zqr [facility] Physician [facility] HospitalComment on above:Performed By: #### CUBLD, LACTIC, HEPATIC, TSH3, BMP ####[address] USACO2 [Moles/Vol]30.2 mmol/DOmfjvd44.0-31.0The [facility] Physician GroupComment on above:Performed By: #### CUBLD, LACTIC, HEPATIC, TSH3, BMP ####[address] [address] USACreatinine [Mass/Vol]3.07 mg/dLHigh0.70-1.30 The [facility] Physician GroupComment on above:Performed By: #### CUBLD, LACTIC, HEPATIC, TSH3, BMP ####[address] [address] USACreatinine Clr Calc Zqrqfubt37.97NormHCA Florida Clearwater Emergency Physician Group Comment on above:Result Comment: PERFORMED BY:[address] [place], [place] [phone] MEDICAL DIRECTORJAJA CATES M.D.Performed By: #### CUBLD, LACTIC, HEPATIC, TSH3, BMP ####[address] [address] USAEstimated GFR19.558 mL/MinNormalThSaint Alphons[facility] Medical Center [facility] Physician [facility] HospitalComment on above:Performed By: #### CUBLD, LACTIC, HEPATIC, TSH3, BMP ####[place] [address] USAGlucose [Mass/Vol]125 mg/sTHerj55-118Pet [facility] Physician GroupComment on above:Result Comment: Random Glucose Reference Range is dependent on time and content of last meal. Glucose of more than 200 mg/dL in a nonstressed, ambulatory subject supports the diagnosis of Diabetes Mellitus. ADA recommended reference rangePerformed By: #### CUBLD, LACTIC, HEPATIC, TSH3, BMP ####[place] [address] USAPotassium [Moles/Vol]4.5 mmol/LNormal3.5-5.1 The [facility] Physician [facility] HospitalComment on above:Performed By: #### CUBLD, LACTIC, HEPATIC, TSH3, BMP ####[place] [address] USASodium [Moles/Vol]132 mmol/FZat023-033Epp [facility] Physician [facility] Comment on above:Performed By: #### CUBLD, LACTIC, HEPATIC, TSH3, BMP ####[address] USAUrea nitrogen [Mass/Vol]40 mg/dLHigh7-25The [facility] Physician [facility] HospitalComment on above:Performed By: #### CUBLD, LACTIC, HEPATIC, TSH3, BMP ####[place] [address] USABasophils Auto (Bld) [#/Vol]Ordered By: Marcos Martin on 41-62-7715Qlotbmydu (Bld) [#/Vol]Automated basophil count0.0-0.2FJoint Township District Memorial HospitalBasophils/100 WBC Auto (Bld)Ordered By: Marcos Martin on 93-16-7368Qbicrhynn/100 WBC (Bld)Automated basophil %.[facility] HospitalBilirubin Test strip Ql (U)Ordered By: Marcos Martin on 72-95-3615Kjnexvgbh Ql (U)Bilirubin.total [Presence] in Urine by Test stripNegativeSalem City HospitalBilirubin.direct [Mass/volume] in Serum or PlasmaOrdered By: Marcos Martin on 03-10-2024 Bilirubin.direct [Mass/Vol]Bilirubin.direct [Mass/volume] in Serum or PlasmaHigh 0.03-0.18FJoint Township District Memorial HospitalBilirubin.total [Mass/volume] in Serum or PlasmaOrdered By: Marcos Martin on 43-49-6726Dzvsronmu [Mass/Vol] Bilirubin.total [Mass/volume] in Serum or Plasma0.3-1.0[facility] HospitalBioFire Detectedon 92-30-8425MuwMqfy DetectedDetectedCritically abnormalNot DetecteThe [facility] Physician GroupComment on above:Result Comment: This is a duplicate RP2.1 COVID (PCR) result to be used for statistical tracking purpose only.PERFORMED BY:[address] [place], [place] [phone] MEDICAL DIRECTORJAJA WHITE M.D.Performed By: #### BIOFIRECOVDET, RESP PANEL UPP. ####[address] USABlood Cultureon 27-54-8650Zoqrpmox identified Cx Nom (Bld)NO GROWTH 5 DAYS PERFORMED BY: [facility] [id number] PATHOLOGIST SILVERING APPLICATOR JAJA CATSE M.D.NormalThe [facility] Physician GroupComment on above: Performed By: #### CUBLD, LACTIC, HEPATIC, TSH3, BMP ####[address] USACOVID-19 Detected/Not Detected Ordered By: Marcos Martin on 91-02-4678KMCW-CoV-2 (COVID-19) RNA SMITHA+non-probe Ql (Nph)Not detectedAbnormalNot DetectMarietta Osteopathic ClinicComment on above:This is a duplicate RP2.1 COVID (PCR) result to be used for statistical tracking purpose only.Calcium [Mass/volume] in Serum or PlasmaOrdered By: Marcos Martin on 71-80-9396Knnyebw [Mass/Vol]Calcium [Mass/volume] in Serum or PlasmaLow 8.6-10.3FJoint Township District Memorial HospitalCarbon dioxide, total [Moles/volume] in Serum or PlasmaOrdered By: Marcos Martin on 44-30-1150PR7 [Moles/Vol]Carbon dioxide, total [Moles/volume] in Serum or Qgtwdn40.0-31.0[facility] HospitalChloride [Moles/volume] in Serum or PlasmaOrdered By: Marcos Martin on 54-46-1525Zxetffud [Moles/Vol]Chloride [Moles/volume] in Serum or Plasma 98-107[facility] HospitalColor Auto (U)Ordered By: Marcos Martin on 51-29-0313Ahebv (U)Color of Urine by AutoYellowSalem City Hospital Complete Blood Count Auto Diffon 74-35-6143Ufdokeawl (Bld) [#/Vol]0.1 10*3/uL Normal0.0-0.2The [facility] Physician GroupComment on above:Result Comment: PERFORMED BY:[address] [place], [place] [phone] MEDICAL DIRECTORJAJA CATES M.D. Performed By: #### CBC, CK, PT, BNP, PTT, HS TROP ####[address] [address] USABasophils/100 WBC (Bld)1.4 %Normal. [facility] Physician GroupComment on above:Performed By: #### CBC, CK, PT, BNP, PTT, HS TROP ####[address] [address] USAEosinophils (Bld) [#/Vol]0.5 10*3/uLHigh0.0-0.45[facility] Physician GroupComment on above:Performed By: #### CBC, CK, PT, BNP, PTT, HS TROP ####[address] [address] [place] Eosinophils/100 WBC (Bld)5.9 %Normal.[facility] Physician GroupComment on above:Performed By: #### CBC, CK, PT, BNP, PTT, HS TROP ####[place] [address] USAErythrocyte distribution width (RBC) [Ratio]15.4 %High12.0-14.8[facility] Physician GroupComment on above: Performed By: #### CBC, CK, PT, BNP, PTT, HS TROP ####[place] [address] USAHematocrit (Bld) [Volume fraction] 27.9 %Low38.8-50.0[facility] Physician GroupComment on above:Performed By: #### CBC, CK, PT, BNP, PTT, HS TROP ####[place] [address] USAHemoglobin (Bld) [Mass/Vol]9.3 g/dLLow13.0-17.0[facility] Physician GroupComment on above:Performed By: #### CBC, CK, PT, BNP, PTT, HS TROP ####[place] [address] USALymphocytes (Bld) [#/Vol]1.0 10*3/uLNormal1.00-4.8[facility] Physician GroupComment on above:Performed By: #### CBC, CK, PT, BNP, PTT, HS TROP ####[place] [address] [place] Lymphocytes/100 WBC (Bld)11.9 %Normal.[facility] Physician GroupComment on above:Performed By: #### CBC, CK, PT, BNP, PTT, HS TROP ####[place] [address] USAMCH (RBC) [Entitic mass]33.6 foSlnoqs32.5-35.2[facility] Physician GroupComment on above:Performed By: #### CBC, CK, PT, BNP, PTT, HS TROP ####[address] [place] [address] USAMCV (RBC) [Entitic vol]100.5 tCJplhkj51.5-101The [facility] Physician GroupComment on above:Performed By: #### CBC, CK, PT, BNP, PTT, HS TROP ####[place] [id number] USAMean Corpuscular HGB Conc33.5 g/hNEnkfdg43.5-35.6[facility] Physician GroupComment on above:Performed By: #### CBC, CK, PT, BNP, PTT, HS TROP ####[place] [id number] [place] Monocytes (Bld) [#/Vol]0.8 10*3/uLNormal0.0-0.8[facility] Comment on above:Performed By: #### CBC, CK, PT, BNP, PTT, HS TROP ####[place] [id number] USAMonocytes/100 WBC (Bld)22.24 %High0.00-20.00[facility] Physician GroupComment on above:Result Comment: For adults in ED, MDW > 20.0 may be associated with a higher risk of sepsis during the first 12 hrs of hospital admissionPerformed By: #### CBC, CK, PT, BNP, PTT, HS TROP ####[place] [id number] USAMonocytes/100 WBC (Bld)9.2 %Normal.[facility] Physician GroupComment on above:Performed By: #### CBC, CK, PT, BNP, PTT, HS TROP ####[place] [id number] [place] Neutrophils (Bld) [#/Vol]6.1 10*3/uLNormal1.8-7.7[facility] Comment on above:Performed By: #### CBC, CK, PT, BNP, PTT, HS TROP ####[place] [id number] USANeutrophils/100 WBC (Bld)71.6 %Normal.[facility] Physician GroupComment on above:Performed By: #### CBC, CK, PT, BNP, PTT, HS TROP ####[place] [address] USANRBC%0.0 /100{WBC}Normal0-0.5[facility] Physician GroupComment on above:Performed By: #### CBC, CK, PT, BNP, PTT, HS TROP ####[address] Platelet mean volume (Bld) [Entitic vol]7.6 fLNormal6.6-10.1[facility] Physician GroupComment on above:Performed By: #### CBC, CK, PT, BNP, PTT, HS TROP ####[address] Platelets (Bld) [#/Vol]247 10*3/jFApwznb652-936Tke [facility] Comment on above:Performed By: #### CBC, CK, PT, BNP, PTT, HS TROP ####[place] [address] USARBC (Bld) [#/Vol] 2.78 10*6/uLLow3.90-5.60[facility] Physician GroupComment on above:Performed By: #### CBC, CK, PT, BNP, PTT, HS TROP ####[place] [address] USAWBC (Bld) [#/Vol]8.5 10*3/uLNormal4.1-10.5[facility] Physician GroupComment on above:Performed By: #### CBC, CK, PT, BNP, PTT, HS TROP ####[address]Creatine Kinaseon 89-99-1109SK [Catalytic activity/Vol]22 U/BFnd24-626 [facility] Physician GroupComment on above:Performed By: #### CBC, CK, PT, BNP, PTT, HS TROP ####[address] [place] [address] USACreatine kinase [Enzymatic activity/volume] in Serum or Plasma Ordered By: Marcos Martin on 36-29-1452IL [Catalytic activity/Vol]Creatine kinase [Enzymatic activity/volume] in Serum or VxqipsTey34-310VumvqbpjbSalem City HospitalCreatinine [Mass/volume] in Serum or PlasmaOrdered By: Marcos Martin on 66-67-1048Tgmyachoqm [Mass/Vol]Creatinine [Mass/volume] in Serum or Plasma High0.70-1.30[facility] City HospitalDipstick and Microscopicon 89-19-4311Iiketvwyyc (U)ClearNormalClearThe [facility] Physician GroupComment on above:Order Comment: Name Collection Type:: Chou CatheterPerformed By: #### ADDONUAPLUS ####[address] [address] USABacteria,UrineNone SeenNormalNone SeenThe [facility] Group Comment on above:Order Comment: Name Collection Type:: Chou CatheterPerformed By: #### ADDONUAPLUS ####[address] [address] USABilirubin,UrineNegativeNormalNegativeWinter Haven Hospital Physician GroupComment on above:Order Comment: Name Collection Type:: Chou CatheterPerformed By: #### ADDONUAPLUS ####[address] [address] USAColor (U)Light-YellowNormalYellowWinter Haven Hospital Physician GroupComment on above:Order Comment: Name Collection Type:: Chou CatheterPerformed By: #### ADDONUAPLUS ####[address] [address] USAGlucose Ql (U)NormalNormalNormalThe [facility] Physician GroupComment on above:Order Comment: Name Collection Type:: Chou CatheterPerformed By: #### ADDONUAPLUS ####[address] [address] USAHyaline Casts,UrineInnumerableHigh0-8[facility] Physician GroupComment on above:Order Comment: Name Collection Type:: Chou CatheterPerformed By: #### ADDONUAPLUS ####[address] [address] USAKetones Ql (U)NegativeNormalNegative [facility] Physician GroupComment on above:Order Comment: Name Collection Type:: Chou CatheterPerformed By: #### ADDONUAPLUS ####[address] [address] USALeukocyte esterase Test strip Ql (U)NegativeNormalNegativeThe [facility] Physician GroupComment on above:Order Comment: Name Collection Type:: Chou CatheterPerformed By: #### ADDONUAPLUS ####[address] [address] [place] Mucus,UrineRareNormalThe [facility] Physician GroupComment on above:Order Comment: Name Collection Type:: Chou CatheterResult Comment: PERFORMED BY:[place] [address] [address] [place] [phone] 41PATHOLOGIST MEDICAL DIRECTORJAJA CATES M.D.Performed By: #### ADDONUAPLUS ####[address] [address] USANitrite,UrineNegativeNormalNegativeThe [facility] Physician GroupComment on above:Order Comment: Name Collection Type:: Chou CatheterPerformed By: #### ADDONUAPLUS ####[address] [address] USAOccult Blood,UrineTraceHighNegativeWinter Haven Hospital Physician GroupComment on above:Order Comment: Name Collection Type:: Chou CatheterResult Comment: PERFORMED BY:[place] [address] [address] [place] [phone] MEDICAL DIRECTORJAJA CATES M.D. Performed By: #### ADDONUAPLUS ####[address] [address] USApH (U)5.0 [pH]Normal5.0-9.0[facility] Physician GroupComment on above:Order Comment: Name Collection Type:: Chou Catheter Performed By: #### ADDONUAPLUS ####[address] [address] USAProtein,UrineNegativeNormalNegativeWinter Haven Hospital Physician GroupComment on above:Order Comment: Name Collection Type:: Chou CatheterPerformed By: #### ADDONUAPLUS ####[address] [address] USARBC,Urine5 [HPF]High0-4[facility] Physician GroupComment on above:Order Comment: Name Collection Type:: Chou Catheter Performed By: #### ADDONUAPLUS ####[address] [address] USASpecificy Delta,Urine1.094Ttqeao6.001-1.030[facility] Physician GroupComment on above:Order Comment: Name Collection Type:: Chou CatheterPerformed By: #### ADDONUAPLUS ####[address] [address] USASquamous Epithelial Cell,Urine1 [HPF] Normal0-2[facility] Physician GroupComment on above:Order Comment: Name Collection Type:: Chou CatheterPerformed By: #### ADDONUAPLUS ####[address] [address] USAUrobilinogen,Urine NormalNormalNormSt. Rita's Hospitale [facility] Physician GroupComment on above:Order Comment: Name Collection Type:: Chou CatheterPerformed By: #### ADDONUAPLUS ####[address] [address] [place] WBC,Urine5 [HPF]High0-4[facility] Physician GroupComment on above:Order Comment: Name Collection Type:: Chou CatheterPerformed By: #### ADDONUAPLUS ####[address] [address] USAECG 12 lead ECGon 68-55-5651MPS 12 lead ECGNormSt. Rita's Hospitale [facility] Eosinophils Auto (Bld) [#/Vol]Ordered By: Marcos Martin on 07-60-3661Ogntzhbxlsk (Bld) [#/Vol]Automated eosinophil countHigh0.0-0.45[facility] HospitalEosinophils/100 WBC Auto (Bld)Ordered By: Marcos Martin on 03-10-2024 Eosinophils/100 WBC (Bld)Automated eosinophil %.Sal[facility] City HospitalEpithelial cells.squamous [#/area] in Urine sediment by Automated count Ordered By: Marcos Martin on 80-44-7083Hcjoixwguy cells.squamous Auto (Urine sed) [#/Area]Epithelial cells.squamous [#/area] in Urine sediment by Automated count 0-2FJoint Township District Memorial HospitalErythrocyte distribution width Auto (RBC) [Ratio]Ordered By: Marcos Martin on 43-94-9068Onirbiklzkv distribution width (RBC) [Ratio]Erythrocyte distribution width [Ratio] by Automated exzwoJhii33.0-14.8 [facility] HospitalErythrocytes [#/area] in Urine sediment by Automated countOrdered By: Marcos Martin on 22-60-9490TAT Auto (Urine sed) [#/Area]Erythrocytes [#/area] in Urine sediment by Automated countHigh0-4 [facility] HospitalGlobulin Calc (S) [Mass/Vol]Ordered By: Marcos Martin on 66-51-3560Bihnrsrd (S) [Mass/Vol]Serum globulin measurement by calculation (mass/volume)[facility] HospitalGlucose [Mass/volume] in Serum or PlasmaOrdered By: Marcos Martin on 33-16-6300Gqtrijf [Mass/Vol]Glucose [Mass/volume] in Serum or MqcevbBgmu36-269LsixxygejSalem City Hospital Comment on above:ADA recommended reference rangeRandom Glucose Reference Range is dependent on time and content of last meal. Glucose of more than 200 mg/dL in a nonstressed, ambulatory subject supports the diagnosisof Diabetes Mellitus. Glucose [Mass/volume] in Urine by Test stripOrdered By: Marcos Martin on 37-05-4224Opguwyh Test strip (U) [Mass/Vol]Glucose [Mass/volume] in Urine by Test stripNormalSalem City HospitalHematocrit Auto (Bld) [Volume fraction]Ordered By: Marcos Martin on 50-21-8968Ynbutzvror (Bld) [Volume fraction] Hematocrit [Volume Fraction] of Blood by Automated ospejYph78.8-50.0[facility] HospitalHemoglobin Test strip Ql (U)Ordered By: Marcos Martin on 53-36-3964Erojlwvdvi Ql (U)Hemoglobin [Presence] in Urine by Test stripHigh NegativeSalem City HospitalHemoglobin [Mass/volume] in Blood Ordered By: Marcos Martin on 82-78-0517Ysbtdqtpjx (Bld) [Mass/Vol]Hemoglobin [Mass/volume] in InizdVpj79.0-17.0[facility] City HospitalHepatic Panel on 72-54-5346Gsiyfkq [Mass/Vol]2.7 g/dLLow3.5-5.7[facility] Comment on above:Performed By: #### CUBLD, LACTIC, HEPATIC, TSH3, BMP ####[place] [address] [place] [id number] [place] Albumin/Globulin [Mass ratio]0.9 {ratio}NormalThe [facility] Comment on above:Performed By: #### CUBLD, LACTIC, HEPATIC, TSH3, BMP ####[place] [address] [place] [address] USAALP [Catalytic activity/Vol]111 U/IPtjd79-712Ddy [facility] Physician GroupComment on above:Performed By: #### CUBLD, LACTIC, HEPATIC, TSH3, BMP ####[address] [address] USAALT [Catalytic activity/Vol]10 U/LNormal7-52[facility] Physician GroupComment on above: Performed By: #### CUBLD, LACTIC, HEPATIC, TSH3, BMP ####[address] [address] USAAST [Catalytic activity/Vol]18 U/GMutopv51-38Eeg [facility] Physician GroupComment on above:Performed By: #### CUBLD, LACTIC, HEPATIC, TSH3, BMP ####[address] [address] USABilirubin [Mass/Vol]0.6 mg/dLNormal0.3-1.0[facility] Physician GroupComment on above:Performed By: #### CUBLD, LACTIC, HEPATIC, TSH3, BMP ####[place] [address] USABilirubin,Indirect0.4 mg/dLNoCritical access hospital Physician [facility] Comment on above:Performed By: #### CUBLD, LACTIC, HEPATIC, TSH3, BMP ####[address] Bilirubin.indirect [Mass/Vol]0.20 mg/dLHigh0.03-0.18[facility] Physician GroupComment on above:Performed By: #### CUBLD, LACTIC, HEPATIC, TSH3, BMP ####[address] Globulin (S) [Mass/Vol]3.0 g/dLNoCritical access hospital Physician [facility] HospitalComment on above:Performed By: #### CUBLD, LACTIC, HEPATIC, TSH3, BMP ####[place] [address] USAProtein [Mass/Vol]5.7 g/dLLow6.4-8.9[facility] Physician GroupComment on above:Performed By: #### CUBLD, LACTIC, HEPATIC, TSH3, BMP ####[place] [address] USAHyaline casts [#/area] in Urine sediment by Automated countOrdered By: Marcos Martin on 52-89-2744Tlzibxw casts Auto (Urine sed) [#/Area]Hyaline casts [#/area] in Urine sediment by Automated countHigh0-8 [facility] HospitalINR in Platelet poor plasma by Coagulation assayOrdered By: Marcos Martin on 68-53-0901QNE Coag (PPP) [Relative time]INR in Platelet poor plasma by Coagulation assaySalem City Hospital Comment on above:INR Therapeutic Range A) Pre- and Peroperative OAT started two weeks before surgery. NOT HIP SURGERY: 1.5 - 2.5 HIP SURGERY: 2 - 3B) Primary and secondary prevention of venous THROMBOSIS: 2 - 3C) Active venous thrombosis, pulmonary embolismand prevention of recurrent venous thrombosis: 2 - 3D) Preve ntion of arterial thromboembolismincluding patients with mechanical heart valves: 3 - 4.5Ketones Test strip Ql (U)Ordered By: Marcos Martin on 03-10-2024 Ketones Ql (U)Ketones [Presence] in Urine by Test stripNegativeSalem City HospitalLaboratory - Microbiology and Antimicrobial susceptibilityOrdered By: Marcos Martin on 25-95-1504Nflooztd identified Cx Nom (Bld)NO GROWTH 5 DAYSSalem City HospitalBacteria identified Cx Nom (Bld)NO GROWTH 5 DAYSSalem City HospitalLactate [Moles/volume] in Serum or PlasmaOrdered By: Marcos Martin on 74-70-9312Ykivzuf [Moles/Vol]Lactate [Moles/volume] in Serum or Plasma0.5-2.2FJoint Township District Memorial HospitalLactic Acidon 12-47-5587Ddbslwn [Moles/Vol]1.2 mmol/LNormal0.5-2.2[facility] Physician GroupComment on above:Result Comment: PERFORMED BY:[facility] [place] [address] [place], [place] [phone] MEDICAL DIRECTORJAJA CATES M.D.Performed By: #### CUBLD, LACTIC, HEPATIC, TSH3, BMP ####[facility] [place] [address] USALeukocyte esterase [Presence] in Urine by Test stripOrdered By: Marcos Martin on 72-08-4484Iodwievzc esterase Test strip Ql (U)Leukocyte esterase [Presence] in Urine by Test stripNegativeSalem City HospitalLeukocytes [#/area] in Urine sediment by Automated countOrdered By: Marcos Martin on 19-22-8657JJI Auto (Urine sed) [#/Area]Leukocytes [#/area] in Urine sediment by Automated countHigh0-4FJoint Township District Memorial HospitalLeukocytes [#/volume] corrected for nucleated erythrocytes in Blood by Automated counOrdered By: Marcos Martin on 30-51-4362ENK corrected for nucl RBC Auto (Bld) [#/Vol]Leukocytes [#/volume] corrected for nucleated erythrocytes in Blood by Automated coun 4.1-10.5FJoint Township District Memorial HospitalLymphocytes Auto (Bld) [#/Vol]Ordered By: Marcos Martin on 51-33-7782Ekfpeqiieij (Bld) [#/Vol]Lymphocytes [#/volume] in Blood by Automated count1.00-4.8[facility] HospitalLymphocytes/100 WBC Auto (Bld)Ordered By: Marcos Martin on 44-45-8724Krjaszimucr/100 WBC (Bld) Lymphocytes/100 leukocytes in Blood by Automated count.[facility] City HospitalMCH Auto (RBC) [Entitic mass]Ordered By: Marcos Martin on 03-10-2024 MCH (RBC) [Entitic mass]MCH [Entitic mass] by Automated count27.5-35.2FJoint Township District Memorial HospitalMCHC Auto (RBC) [Mass/Vol]Ordered By: Marcos Martin on 37-70-7815UTDP (RBC) [Mass/Vol]MCHC [Mass/volume] by Automated count32.5-35.6 [facility] HospitalMCV Auto (RBC) [Entitic vol]Ordered By: Marcos Martin on 38-21-1521RRL (RBC) [Entitic vol]MCV [Entitic volume] by Automated count83.5-101[facility] HospitalMonocyte distribution width [Entitic volume] in Blood by AutomatedOrdered By: Marcos Martin on 03-10-2024 Monocyte distribution width Auto (Bld) [Entitic vol]Monocyte distribution width [Entitic volume] in Blood by AutomatedHigh0.00-20.00[facility] HospitalComment on above:For adults in ED, MDW > 20.0 may be associated with a higher risk of sepsis during the first 12 hrs of hospital admissionMonocytes Auto (Bld) [#/Vol]Ordered By: Marcos Martin on 00-27-9864Veseombth (Bld) [#/Vol] Automated blood monocyte count0.0-0.8[facility] Monocytes/100 WBC Auto (Bld)Ordered By: Marcos Martin on 56-95-5921Oflhjqhcz/100 WBC (Bld)Automated monocyte %.[facility] HospitalMucus [Presence] in Urine by AutomatedOrdered By: Marcos Martin on 78-84-1945Vxssz Auto Ql (U)Mucus [Presence] in Urine by AutomatedSalem City HospitalNatriuretic peptide B [Mass/Vol]Ordered By: Marcos Martin on 30-23-5936Vlhxtsfmeny peptide B (Bld) [Mass/Vol]BNP ser/plasHigh5-100[facility] Neutrophils Auto (Bld) [#/Vol]Ordered By: Marcos Martin on 27-59-5742Nqwgoigafln (Bld) [#/Vol]Neutrophils [#/volume] in Blood by Automated count1.8-7.7FJoint Township District Memorial HospitalNeutrophils/100 WBC Auto (Bld)Ordered By: Macros Martin on 22-96-4495Hkqypjbljpj/100 WBC (Bld)Automated neutrophil %.[facility] HospitalNitrite Test strip Ql (U)Ordered By: Marcos Martin on 03-10-2024 Nitrite Ql (U)Nitrite [Presence] in Urine by Test stripNegativeSalem City HospitalNo Panel InformationOrdered By: Marcos Martin on 03-10-2024 Estimated GFR (CKD-EPI)19.558 mL/MinSalem City HospitalPharmacy Creatinine Clearance (Chem19.97[facility] HospitalNO GROWTH 5 DAYS [facility] HospitalNucleated erythrocytes [Presence] in Blood by Automated countOrdered By: Marcos Martin on 14-58-3148Jjzdixmzm RBC Auto Ql (Bld) Nucleated erythrocytes [Presence] in Blood by Automated count0-0.5FJoint Township District Memorial HospitalPartial Thromboplastin Timeon 02-53-3885cHFQ Coag (Bld) [Time]38.8 sHigh25.1-36.5[facility] Physician GroupComment on above:Result Comment: A hematocrit value greater than 55% may lead to inaccurate results in coagulation testing. Patients having hematocrit values >55% require a special collection tube for coagulation studies. Please contact the laboratory at [phone] for redraw instructions.PERFORMED BY:[place] [address] [address] [place]EDAB[place], [place] [phone] MEDICAL DIRECTORJAJA CATES M.D.Performed By: #### CBC, CK, PT, BNP, PTT, HS TROP ####[facility] Platelet mean volume Auto (Bld) [Entitic vol]Ordered By: Marcos Martin on 19-97-6449Atoyzgsj mean volume (Bld) [Entitic vol]Platelet mean volume [Entitic volume] in Blood by Automated count6.6-10.1FJoint Township District Memorial Hospital Platelets Auto (Bld) [#/Vol]Ordered By: Marcos Martin on 33-21-6286Jaxjxznzu (Bld) [#/Vol]Platelets [#/volume] in Blood by Automated xpija860-394KaybzudraSalem City HospitalPotassium [Moles/volume] in Serum or PlasmaOrdered By: Marcos Martin on 47-21-0926Vbjourybp [Moles/Vol]Potassium [Moles/volume] in Serum or Plasma3.5-5.1FJoint Township District Memorial HospitalProtein Test strip (U) [Mass/Vol]Ordered By: Marcos Martin on 64-81-0004Rgtgixc (U) [Mass/Vol]Protein [Mass/volume] in Urine by Test stripNegativeSalem City Hospital Protein [Mass/volume] in Serum or PlasmaOrdered By: Marcos Martin on 03-10-2024 Protein [Mass/Vol]Protein [Mass/volume] in Serum or PlasmaLow6.4-8.9[facility] HospitalProthrombin Time INRon 38-80-7137CII Coag (PPP) [Relative time]2.7 {INR}NormalThe [facility] Physician GroupComment on above:Result Comment: INR Therapeutic Range A) Pre- and [...] patients with mechanical heart valves: 3 - 4.5Performed By: #### CBC, CK, PT, BNP, PTT, HS TROP ####[facility] [place] [address] USAPT Coag (PPP) [Time] 30.4 sHigh9.0-12.9[facility] Physician GroupComment on above:Result Comment: A hematocrit value greater than 55% may lead to inaccurate results in coagulation testing. Patients having hematocrit values >55% require a special collection tube for coagulation studies. Please contact the laboratory at [phone] for redraw instructions.Performed By: #### CBC, CK, PT, BNP, PTT, HS TROP ####[facility] [address] [place] [address] USAProthrombin time (PT)Ordered By: Marcos Martin on 05-73-2481YC Coag (PPP) [Time]Prothrombin time (PT)High9.0-12.9[facility] HospitalComment on above:A hematocrit value greater than 55% may lead to inaccurate results in coagulation testing. Patientshaving hematocrit values >55% require a special collection tube for coagulation studies. Please contact the laboratory at [phone] for redraw instructions.RBC Auto (Bld) [#/Vol]Ordered By: Marcos Martin on 36-82-5800YVJ (Bld) [#/Vol]Erythrocytes [#/volume] in Blood by Automated countLow3.90-5.60[facility] HospitalRespiratory (Upper) Panel, PCRon 33-38-0266Vzfcthvzntk (Upper) Panel, PCRNormHCA Florida Clearwater Emergency Physician GroupComment on above:Performed By: #### BIOFIRECOVDET, RESP PANEL UPP. ####[facility] [address] [place] [address] [facility] Respiratory pathogens DNA and RNA panel - Nasopharynx by SMITHA with non-probe detectionOrdered By: Marcos Martin on 64-31-4898Lpdxoewybiv pathogens DNA and RNA panel SMITHA+non-probe (Nph)Respiratory pathogens DNA and RNA panel - Nasopharynx by SMITHA with non-probe detectionTrinity Health System West Campuserum or plasma albumin/globulin mass ratioOrdered By: Marcos Martin on 21-24-1312Ltepekw/Globulin [Mass ratio]Serum or plasma albumin/globulin mass ratioTrinity Health System West Campuserum or plasma anion gap determinationOrdered By: Marcos Martin on 66-67-9616Vslyy gap [Moles/Vol]Serum or plasma anion gap determination6.0-15.0 [facility] West Campuserum or plasma non-glucuronidated bilirubin measurement (mass/volume)Ordered By: Marcos Martin on 52-35-4974Lyslofrsi.indirect [Mass/Vol]Serum or plasma non-glucuronidated bilirubin measurement (mass/volume)[facility] System West Campusodium [Moles/volume] in Serum or PlasmaOrdered By: Marcos Martin on 99-88-9710Wictyw [Moles/Vol]Sodium [Moles/volume] in Serum or IvmyelPcs538-148KabhlvtnqSalem City Hospital Specific gravity Test strip (U) [Rel density]Ordered By: Marcos Martin on 89-96-7339Egrryzsq gravity (U) [Rel density]Specific gravity of Urine by Test strip1.001-1.030[facility] HospitalThyroid Stimulating Hormoneon 81-17-5345WSU Qn11.48 m[IU]/LHigh0.45-5.33[facility] Physician GroupComment on above:Result Comment: PERFORMED BY:[place] [address] [address] [place], [place] [phone] MEDICAL DIRECTORJAJA CATES M.D.Performed By: #### CUBLD, LACTIC, HEPATIC, TSH3, BMP ####[address] [address] [facility] Thyrotropin [Units/volume] in Serum or PlasmaOrdered By: Mitchell Reyes on 94-45-5331HSQ QnThyrotropin [Units/volume] in Serum or PlasmaHigh0.45-5.33 [facility] HospitalTroponin I High Sensitivityon 03-10-2024 Troponin I High Oyovrfuztze65.1 pg/mLNormal0.0-20.0[facility] Comment on above:Result Comment: PERFORMED BY:[address] [place]GEL[place], [place] [phone] MEDICAL DIRECTORJAJA CATES M.D.Performed By: #### CBC, CK, PT, BNP, PTT, HS TROP ####[facility] [address] [place] [address] [facility] Troponin I.cardiac [Mass/volume] in Serum or Plasma by Detection limit <= 0.01 ng/Ordered By: Marcos Martin on 57-22-3487Qertfsdk I.cardiac DL <= 0.01 ng/mL [Mass/Vol]Troponin I.cardiac [Mass/volume] in Serum or Plasma by Detection limit <= 0.01 ng/0.0-20.0[facility] City HospitalUrea nitrogen [Mass/volume] in Serum or PlasmaOrdered By: Marcos Martin on 54-09-0132Dyif nitrogen [Mass/Vol] Urea nitrogen [Mass/volume] in Serum or PlasmaCity Hospital7-25[facility] [facility] HospitalUrine Cultureon 17-60-6541Wvsxyjhf identified Cx Nom (U)No Growth 2 Days PERFORMED BY: [place] [address] PATHOLOGIST SILVERING APPLICATOR JAJA CATES M.D.NormalThe Person Memorial Hospital Physician GroupComment on above: Performed By: #### CUU ####[facility] [address] [place] [address] USAUrine cultureOrdered By: Mitchell Reyes on 98-82-7215Umzqlben identified Cx Nom (U)Urine cultureSalem City HospitalBacteria identified Cx Nom (U)Urine cultureSalem City HospitalUrobilinogen Test strip (U) [Mass/Vol]Ordered By: Marcos Martin on 77-05-1171Oakwlzbynjse (U) [Mass/Vol]Urobilinogen [Mass/volume] in Urine by Test stripNormalSalem City HospitalWBC Auto (Bld) [#/Vol]Ordered By: Marcos Martin on 57-17-2981RZK (Bld) [#/Vol]Leukocytes [#/volume] in Blood by Automated count4.1-10.5FJoint Township District Memorial HospitalX-ray reportOrdered By: Shaquille Mahoney on 08-31-8776Laqio reportOHIOHEALTH HARDIN [facility] [address] [place] [address] XRay Report Signed Patient: Tavo Wallis Jr MR# : [id number] : 1940 Acct:[id number] Age/Sex: 83 / M ADM Date: 5 Loc: ER Room: Type: [facility] ER Attending Dr: Copies to: Marcos Martin DO~ Ordering Provider: Marcos Martin DO Date of Service: 03/10/24 XR/XR chest 1V portable: CHEST PAIN XR chest 1V portable 03/10/2024 9:58 AM SIGNS AND SYMPTOMS: Hypotension, lethargy PROTOCOL: Frontal radiograph of the chest COMPARISON: 01/12/2022 FINDINGS: The trachea is midline. There is cardiomegaly. Airspace opacities are noted near the lung bases with small bilateral pleural effusions. This is worse when compared to the prior exam and is greatest at the left lung base. Degenerative changes are noted in the shoulders and thoracic spine. Postoperative changes are noted in the right shoulder. The bony thorax is intact. XR/XR chest 1V portable IMPRESSION: Worsening pleural effusions left greater than right. Cardiomegaly with airspace opacities near the lung bases. Impression dictated by: Shaquille Mahoney M.D.03/10/2024 10:26 AM Dictation Location: [place] [address] Transcribed By: NOLVIA 03/10/24 1026 Dictated By: Shaquille Mahoney II, MD 03/10/24 1025 Signed By: 03/10/24 [facility]6 [facility] Work Phone: XR chest 1V portableon 33-56-9176YL chest 1V portable NormalThe Person Memorial Hospital Physician GroupaPTT in Platelet poor plasma by Coagulation assayOrdered By: Marcos Martin on 09-45-4420iCSD Coag (PPP) [Time]Activated partial thromboplastin time (aPTT) in platelet poor plasma by coagulation [facility] 25.1-36.5FJoint Township District Memorial HospitalComment on above:A hematocrit value greater than 55% may lead to inaccurate results in coagulation testing. Patients having hematocrit values >55% require a special collection tube for coagulation studies. Please contact the laboratory at [phone] for redraw instructions. pH Test strip (U)Ordered By: Marcos Martin on 21-94-5746sS (U)pH of Urine by Test strip5.0-9.0[facility] HospitalAlanine aminotransferase [Enzymatic activity/volume] in Serum or PlasmaOrdered By: Sandip Bunting on 23-09-5207NZD [Catalytic activity/Vol]Alanine aminotransferase [Enzymatic activity/volume] in Serum or Plasma7-52[facility] HospitalAlbumin [Mass/volume] in Serum or Plasma by Bromocresol green (BCG) dye binding methoOrdered By: Sandip Bunting on 78-69-7799Hlgzirs BCG dye [Mass/Vol]Albumin [Mass/volume] in Serum or Plasma by Bromocresol green (BCG) dye binding methoLow3.5-5.7FJoint Township District Memorial HospitalAlkaline phosphatase [Enzymatic activity/volume] in Serum or PlasmaOrdered By: Sandip Bunting on 11-63-4341GVA [Catalytic activity/Vol] Alkaline phosphatase [Enzymatic activity/volume] in Serum or GlexslBysj48-680 [facility] HospitalAspartate aminotransferase [Enzymatic activity/volume] in Serum or PlasmaOrdered By: Sandip Bunting on 39-81-0567RES [Catalytic activity/Vol]Aspartate aminotransferase [Enzymatic activity/volume] in Serum or Xgxamf46-00PousfxmfdSalem City HospitalBasophils Auto (Bld) [#/Vol]Ordered By: Sandip Bunting on 57-97-5424Xvtnqgvku (Bld) [#/Vol]Automated basophil count0.0-0.2FJoint Township District Memorial HospitalBasophils/100 WBC Auto (Bld)Ordered By: Sandip Bunting on 06-21-4046Lcilkydpg/100 WBC (Bld)Automated basophil %.[facility] HospitalBilirubin.total [Mass/volume] in Serum or PlasmaOrdered By: Sandip Bunting on 65-77-0222Mvayasvjy [Mass/Vol] Bilirubin.total [Mass/volume] in Serum or Plasma0.3-1.0[facility] HospitalCalcium [Mass/volume] in Serum or PlasmaOrdered By: Sandip Bunting on 91-20-7770Iurnqjy [Mass/Vol]Calcium [Mass/volume] in Serum or PlasmaLow 8.6-10.3FJoint Township District Memorial HospitalCarbon dioxide, total [Moles/volume] in Serum or PlasmaOrdered By: Sandip Bunting on 85-21-8845JH9 [Moles/Vol]Carbon dioxide, total [Moles/volume] in Serum or Hppkgo24.0-31.0[facility] HospitalChloride [Moles/volume] in Serum or PlasmaOrdered By: Sandip Bunting on 85-48-4806Ematllvv [Moles/Vol]Chloride [Moles/volume] in Serum or Dwmgti89-201HfhpjnjqfSalem City HospitalComplete Blood Count Auto Diffon 47-64-3165Mnaqbnqhj (Bld) [#/Vol]0.0 10*3/uLNormal0.0-0.2The [facility] Hospital Physician GroupComment on above:Result Comment: PERFORMED BY:[address] [place], [place] [phone] MEDICAL DIRECTORJAJA CATES M.D.Performed By: #### CMP, CBC ####[address] [address] USABasophils/100 WBC (Bld)0.5 %Normal.The [facility] Hospital Physician GroupComment on above:Performed By: #### CMP, CBC ####[address] [address] USAEosinophils (Bld) [#/Vol]0.4 10*3/uLNormal0.0-0.45The [facility] Hospital Physician GroupComment on above:Performed By: #### CMP, CBC ####[address] [address] USAEosinophils/100 WBC (Bld)4.6 %Normal.The [facility] Hospital Physician GroupComment on above:Performed By: #### CMP, CBC ####[address] [address] USAErythrocyte distribution width (RBC) [Ratio]15.4 %High12.0-14.8The [facility] Hospital Physician GroupComment on above:Performed By: #### CMP, CBC ####[place] [id number] [facility] Hematocrit (Bld) [Volume fraction]28.8 %Low38.8-50.0The [facility] Hospital Physician GroupComment on above:Performed By: #### CMP, CBC ####[place] [address] USAHemoglobin (Bld) [Mass/Vol]9.7 g/dLLow 13.0-17.0The [facility] Hospital Physician GroupComment on above:Performed By: #### CMP, CBC ####[place] [address] [place] Lymphocytes (Bld) [#/Vol]0.5 10*3/uLLow1.00-4.8The [facility] Physician Group Comment on above:Performed By: #### CMP, CBC ####[place] [address] USALymphocytes/100 WBC (Bld)6.1 %Normal. The [facility] Hospital Physician GroupComment on above:Performed By: #### CMP, CBC ####[place] [address] USAMCH (RBC) [Entitic mass]34.4 tdHtdbvp21.5-35.2The [facility] Hospital Physician GroupComment on above:Performed By: #### CMP, CBC ####[place] [address] USAMCV (RBC) [Entitic vol]102.5 tCYufz37.5-101The [facility] Hospital Physician GroupComment on above:Performed By: #### CMP, CBC ####[place] [address] USAMean Corpuscular HGB Conc33.6 g/yCJsjsph99.5-35.6The [facility] Hospital Physician GroupComment on above:Performed By: #### CMP, CBC ####[place] [address] USAMonocytes (Bld) [#/Vol]0.6 10*3/uLNormal 0.0-0.8The [facility] Hospital Physician GroupComment on above:Performed By: #### CMP, CBC ####[address] [address] [place] Monocytes/100 WBC (Bld)7.3 %Normal.The [facility] Hospital Physician GroupComment on above:Performed By: #### CMP, CBC ####[address] [address] USANeutrophils (Bld) [#/Vol]6.2 10*3/uLNormal1.8-7.7The [facility] Hospital Physician GroupComment on above:Performed By: #### CMP, CBC ####[address] [address] [place] Neutrophils/100 WBC (Bld)81.5 %Normal.The [facility] Hospital Physician GroupComment on above:Performed By: #### CMP, CBC ####[place] [id number] USANRBC%0.1 /100{WBC}Normal0-0.5The [facility] Hospital Physician GroupComment on above:Performed By: #### CMP, CBC ####[address] [address] USAPlatelet mean volume (Bld) [Entitic vol]8.2 fLNormal6.6-10.1The [facility] Hospital Physician GroupComment on above: Performed By: #### CMP, CBC ####[address] [address] USAPlatelets (Bld) [#/Vol]265 10*3/bHOszbjg885-951Mol [facility] Hospital Physician GroupComment on above:Performed By: #### CMP, CBC ####[address] [address] USARBC (Bld) [#/Vol]2.81 10*6/uLLow3.90-5.60The [facility] Hospital Physician GroupComment on above:Performed By: #### CMP, CBC ####[address] [address] USAWBC (Bld) [#/Vol]7.6 10*3/uLNormal4.1-10.5The [facility] Hospital Physician GroupComment on above:Performed By: #### CMP, CBC ####[address] [address] [facility] Comprehensive Metabolic Panelon 23-48-4621Rdyhpcz [Mass/Vol]2.8 g/dLLow3.5-5.7 The [facility] Hospital Physician GroupComment on above:Performed By: #### CMP, CBC ####[place] [id number] [facility] Albumin/Globulin [Mass ratio]1.2 {ratio}NormalThe Person Memorial Hospital Physician Group Comment on above:Performed By: #### CMP, CBC ####[place] [id number] USAALP [Catalytic activity/Vol]106 U/L Ajhj58-194Uag Person [facility] Hospital Physician GroupComment on above:Result Comment: PERFORMED BY:[address] [place], [place] [phone] MEDICAL DIRECTORJAJA CATES M.D. Performed By: #### CMP, CBC ####[address] [address] USAALT [Catalytic activity/Vol]13 U/LNormal7-52The [facility] Hospital Physician GroupComment on above:Performed By: #### CMP, CBC ####[address] [address] USAAnion gap [Moles/Vol]9.7 mmol/LNormal6.0-15.0The [facility] Hospital Physician GroupComment on above:Performed By: #### CMP, CBC ####[address] [address] USAAST [Catalytic activity/Vol]22 U/RIhtpou55-76Isz [facility] Hospital Physician GroupComment on above:Performed By: #### CMP, CBC ####[address] [address] [place] Bilirubin [Mass/Vol]0.7 mg/dLNormal0.3-1.0The [facility] Hospital Physician GroupComment on above:Performed By: #### CMP, CBC ####[address] [address] USACalcium [Mass/Vol]8.2 mg/dLLow8.6-10.3The [facility] Hospital Physician GroupComment on above:Performed By: #### CMP, CBC ####[address] [address] [place] Chloride [Moles/Vol]98 mmol/DMrubkg10-187Smz [facility] Hospital Physician GroupComment on above:Performed By: #### CMP, CBC ####[address] [address] USACO2 [Moles/Vol]27.9 mmol/ATejorv75.0-31.0The [facility] Hospital Physician GroupComment on above:Performed By: #### CMP, CBC ####[address] [address] [place] Creatinine [Mass/Vol]1.58 mg/dLHigh0.70-1.30The [facility] Hospital Physician GroupComment on above:Performed By: #### CMP, CBC ####[address] [address] USAEstimated GFR43.402 mL/MinNoCritical access hospital Physician [facility] HospitalComment on above:Performed By: #### CMP, CBC ####[address] [address] USAGlobulin (S) [Mass/Vol]2.3 g/dLNoCritical access hospital Physician GroupComment on above:Performed By: #### CMP, CBC ####[address] [address] USAGlucose [Mass/Vol]111 mg/tYCkjp22-662Qla [facility] Comment on above:Result Comment: Random Glucose Reference Range is dependent on time and content of last meal. Glucose of more than 200 mg/dL in a nonstressed, ambulatory subject supports the diagnosis of Diabetes Mellitus. ADA recommended reference rangePerformed By: #### CMP, CBC ####[address] [address] USAPotassium [Moles/Vol]3.6 mmol/LNormal 3.5-5.1The [facility] Hospital Physician GroupComment on above:Performed By: #### CMP, CBC ####[facility] [address] [place] [phone] [place] Protein [Mass/Vol]5.1 g/dLLow6.4-8.9The [facility] Hospital Physician GroupComment on above:Performed By: #### CMP, CBC ####[facility] [address] [place] [phone] USASodium [Moles/Vol]132 mmol/NBct910-824Goh [facility] Physician GroupComment on above:Performed By: #### CMP, CBC ####[facility] [address] [place] [phone] USAUrea nitrogen [Mass/Vol]24 mg/dLNormal7-25The [facility] Hospital Physician GroupComment on above: Performed By: #### CMP, CBC ####[place] [address] [place] [phone] USACreatinine [Mass/volume] in Serum or PlasmaOrdered By: Sandip Bunting on 26-50-6230Tmvngqhjkv [Mass/Vol]Creatinine [Mass/volume] in Serum or PlasmaHigh0.70-1.30[facility] HospitalEosinophils Auto (Bld) [#/Vol]Ordered By: Sandip Bunting on 95-26-6156Betphxgohxm (Bld) [#/Vol] Automated eosinophil count0.0-0.45[facility] Eosinophils/100 WBC Auto (Bld)Ordered By: Sandip Bunting on 03-02-2024 Eosinophils/100 WBC (Bld)Automated eosinophil %.[facility] HospitalErythrocyte distribution width Auto (RBC) [Ratio]Ordered By: Sandip Bunting on 46-11-5942Rjhmjuusjgb distribution width (RBC) [Ratio]Erythrocyte distribution width [Ratio] by Automated obqyxZuep13.0-14.8[facility] HospitalGlobulin Calc (S) [Mass/Vol]Ordered By: Sandip Bunting on 80-30-5480Oyboyuua (S) [Mass/Vol]Serum globulin measurement by calculation (mass/volume)[facility] HospitalGlucose [Mass/volume] in Serum or PlasmaOrdered By: Sandip Bunting on 10-54-7375Sfmqozt [Mass/Vol]Glucose [Mass/volume] in Serum or WprdpjNqoh33-146AhbpsajzoSalem City Hospital Comment on above:ADA recommended reference rangeRandom Glucose Reference Range is dependent on time and content of last meal. Glucose of more than 200 mg/dL in a nonstressed, ambulatory subject supports the diagnosisof Diabetes Mellitus. Hematocrit Auto (Bld) [Volume fraction]Ordered By: Sandip Aguirre on 03-02-2024 Hematocrit (Bld) [Volume fraction]Hematocrit [Volume Fraction] of Blood by Automated hajkxKxw76.8-50.0[facility] HospitalHemoglobin [Mass/volume] in BloodOrdered By: Sandip Bunting on 92-69-5464Htrvkfdfey (Bld) [Mass/Vol]Hemoglobin [Mass/volume] in LbcxcJzx55.0-17.0[facility] HospitalLeukocytes [#/volume] corrected for nucleated erythrocytes in Blood by Automated counOrdered By: Sandip Bunting on 86-33-0200VSO corrected for nucl RBC Auto (Bld) [#/Vol]Leukocytes [#/volume] corrected for nucleated erythrocytes in Blood by Automated coun4.1-10.5FJoint Township District Memorial Hospital Lymphocytes Auto (Bld) [#/Vol]Ordered By: Sandip Bunting on 03-02-2024 Lymphocytes (Bld) [#/Vol]Lymphocytes [#/volume] in Blood by Automated countLow 1.00-4.8[facility] HospitalLymphocytes/100 WBC Auto (Bld)Ordered By: Sandip Bunting on 61-54-9519Bwuogxnides/100 WBC (Bld)Lymphocytes/100 leukocytes in Blood by Automated count.[facility] HospitalMCH Auto (RBC) [Entitic mass]Ordered By: Sandip Bunsantiago on 13-83-0020KAB (RBC) [Entitic mass]MCH [Entitic mass] by Automated count27.5-35.2FJoint Township District Memorial HospitalMCHC Auto (RBC) [Mass/Vol]Ordered By: Sandip Aguirre on 30-16-6716YAHA (RBC) [Mass/Vol]MCHC [Mass/volume] by Automated count32.5-35.6FJoint Township District Memorial HospitalMCV Auto (RBC) [Entitic vol]Ordered By: Sandip Bunting on 10-55-9125WBP (RBC) [Entitic vol]MCV [Entitic volume] by Automated countHigh 83.5-101[facility] HospitalMonocytes Auto (Bld) [#/Vol]Ordered By: Sandip Bunting on 41-23-7374Hyqgoqtnf (Bld) [#/Vol]Automated blood monocyte count0.0-0.8[facility] HospitalMonocytes/100 WBC Auto (Bld)Ordered By: Sandip Bunting on 33-56-3794Rhhevysqb/100 WBC (Bld)Automated monocyte %. [facility] HospitalNeutrophils Auto (Bld) [#/Vol]Ordered By: Sandip Bunting on 76-35-6435Mzxnbnpjale (Bld) [#/Vol]Neutrophils [#/volume] in Blood by Automated count1.8-7.7FJoint Township District Memorial HospitalNeutrophils/100 WBC Auto (Bld)Ordered By: Sandip Bunting on 52-25-9744Bwxvvuptoyx/100 WBC (Bld) Automated neutrophil %.[facility] HospitalNo Panel Information Ordered By: Sandip Bunting on 06-72-3864Jjbxpdosh GFR (CKD-EPI)43.402 mL/Min [facility] HospitalPharmacy Creatinine Clearance (ChemN/AFJoint Township District Memorial HospitalNucleated erythrocytes [Presence] in Blood by Automated countOrdered By: Sandip Bunting on 52-72-0220Yjaptoyhr RBC Auto Ql (Bld) Nucleated erythrocytes [Presence] in Blood by Automated count0-0.5FJoint Township District Memorial HospitalPlatelet mean volume Auto (Bld) [Entitic vol]Ordered By: Sandip Bunting on 24-68-6033Lfhbbldr mean volume (Bld) [Entitic vol]Platelet mean volume [Entitic volume] in Blood by Automated count6.6-10.1FJoint Township District Memorial HospitalPlatelets Auto (Bld) [#/Vol]Ordered By: Sandip Bunting on 10-81-3191Fuoozwznm (Bld) [#/Vol]Platelets [#/volume] in Blood by Automated ifwag235-660GmbjxhnemSalem City HospitalPotassium [Moles/volume] in Serum or PlasmaOrdered By: Sandip Bunting on 60-41-9083Umeusxrgh [Moles/Vol]Potassium [Moles/volume] in Serum or Plasma3.5-5.1FJoint Township District Memorial HospitalProtein [Mass/volume] in Serum or PlasmaOrdered By: Sandip Bunting on 38-55-9651Lwarqiq [Mass/Vol]Protein [Mass/volume] in Serum or PlasmaLow6.4-8.9[facility] HospitalRBC Auto (Bld) [#/Vol]Ordered By: Sandip Bunting on 46-38-7696BNK (Bld) [#/Vol]Erythrocytes [#/volume] in Blood by Automated countLow3.90-5.60 [facility] West Campuserum or plasma albumin/globulin mass ratio Ordered By: Sandip Bunting on 60-80-5582Eqfbuvz/Globulin [Mass ratio]Serum or plasma albumin/globulin mass ratioTrinity Health System West Campuserum or plasma anion gap determinationOrdered By: Sandip Bunting on 83-10-7722Tldbl gap [Moles/Vol]Serum or plasma anion gap determination6.0-15.0[facility] Campusodium [Moles/volume] in Serum or PlasmaOrdered By: Sandip Bunting on 44-17-4666Leqzvg [Moles/Vol]Sodium [Moles/volume] in Serum or PlasmaLow 136-145[facility] HospitalUrea nitrogen [Mass/volume] in Serum or PlasmaOrdered By: Sandip Bunting on 66-97-0767Vtiz nitrogen [Mass/Vol]Urea nitrogen [Mass/volume] in Serum or Plasma7-25[facility] WBC Auto (Bld) [#/Vol]Ordered By: Sandip Bunting on 47-93-4376XMW (Bld) [#/Vol] Leukocytes [#/volume] in Blood by Automated count4.1-10.5FJoint Township District Memorial HospitalANION GAPon 47-40-1674Meaqw gap [Moles/Vol]12.0 mmol/LNormal 8.0-16.0Medical Center HospitalComment on above:Result Comment: ANION GAP = Sodium -(Chloride + CO2)Performed By: #### ANION, CBCND, EGFR1, BMP #### [facility] [address] [place] [address]Wknvl Gapon 48-23-4193Tasab gap [Moles/Vol]12.0 mmol/L8.0 - 16.0 meq/LBon Select Medical [facility] Rehabilitation HospitalComment on above:ANION GAP = Sodium -(Chloride + CO2) Performed at [facility] [address] [place] [address] BASIC METABOL PANELon 43-06-9869Gvickbh [Mass/Vol]8.5 mg/dLNormal8.5-10.5SUniversity HospitalComment on above:Performed By: #### ANION, CBCND, EGFR1, BMP #### [facility] [address] [address]Wzcmzsqe [Moles/Vol]96 mmol/MBqs97-890LfqspMedical Center Hospital Comment on above:Performed By: #### ANION, CBCND, EGFR1, BMP #### [facility] [address] [place] [address]ZL7 [Moles/Vol]23 mmol/ARvjphu24-32UdaebMedical Center Hospital Comment on above:Performed By: #### ANION, CBCND, EGFR1, BMP #### [facility] [address] [address]Zkzpkgtybw [Mass/Vol]1.5 mg/dLHigh0.4-1.2SUniversity HospitalComment on above:Performed By: #### ANION, CBCND, EGFR1, BMP #### [facility] [address] [place] [address]Soqxryb [Mass/Vol]100 mg/wUWhbpqe37-220IdbvfMedical Center Hospital Comment on above:Performed By: #### ANION, CBCND, EGFR1, BMP #### [facility] [address] [place] [address]Pfefnghsv [Moles/Vol]3.7 mmol/LNormal3.5-5.2SUniversity HospitalComment on above:Performed By: #### ANION, CBCND, EGFR1, BMP #### [facility] [address] [place], [place] [address]Vgovec [Moles/Vol]131 mmol/GEkd351-679NlkooMedical Center Hospital Comment on above:Performed By: #### ANION, CBCND, EGFR1, BMP #### [facility] [address] [place], [place] [address]Mote nitrogen [Mass/Vol]30 mg/dLHigh7-22Medical Center HospitalComment on above:Performed By: #### ANION, CBCND, EGFR1, BMP #### [facility] [address] [place], [place] [address]Zgevq metabolic 2000 panelon 78-91-0286Cetpqrr [Mass/Vol]8.5 mg/dL 8.5 - 10.5 mg/dLBon Secours Ohiohealth Arthur [facility] Cancer Centery St[facility], Ironton CampusComment on above:Performed at [facility] [address] [place], [place] [address]Rgozzlcg [Moles/Vol]96 mmol/LLow98 - 111 meq/LBon Secours Mercy HealthCO2 [Moles/Vol]23 mmol/L23 - 33 meq/LBon Secours Mercy HealthCreatinine [Mass/Vol]1.5 mg/dLHigh0.4 - 1.2 mg/dLBon Secours Mercy HealthGlucose [Mass/Vol]100 mg/dL70 - 108 mg/dLBon Secours Mercy Health Potassium [Moles/Vol]3.7 mmol/L3.5 - 5.2 meq/LBon Secours Mercy HealthSodium [Moles/Vol]131 mmol/EVvi942 - 145 meq/LBon Secours Mercy HealthUrea nitrogen [Mass/Vol]30 mg/dLHigh7 - 22 mg/dLBon Secours Mercy HealthCBCon 02-27-2024 Erythrocyte distribution width (RBC) [Entitic vol]52.1 eBUuyz19.0 - 45.0 fLBon Secours Mercy HealthErythrocyte distribution width (RBC) [Ratio]13.9 %11.5 - 14.5 %[facility] Mer[facility] HealthHematocrit (Bld) [Volume fraction]27.6 %Low42.0 - 52.0 %[facility] HealthHemoglobin (Bld) [Mass/Vol]9.2 g/dLLowBon Secours Mercy HealthInterpretation and review of laboratory resultsAbnormalBon Parkview HealthH (RBC) [Entitic mass]34.2 lhEkcr86.0 - 33.0 pgBon Secours Health SystemHC (RBC) [Mass/Vol]33.3 g/dLBon Parkview HealthV (RBC) [Entitic vol]102.6 nCSlss10.0 - 94.0 fLSmyth County Community HospitalPlatelet mean volume (Bld) [Entitic vol]10.2 fL9.4 - 12.4 fLSmyth County Community HospitalComment on above: Performed at [address] [address]Qtqcqqdal (Bld) [#/Vol]282 10*3/uLSmyth County Community HospitalRBC (Bld) [#/Vol]2.69 10*6/uLLow Smy[facility] County Community HospitalWBC (Bld) [#/Vol]13.6 10*3/uLHighBon [facility] Surgery CenterCBC NO DIFFERENTIALon 62-34-1873Thkzqhhbbol distribution width (RBC) [Ratio]13.9 %Qztaze98.5-14.5SUniversity Hospital Comment on above:Performed By: #### ANION, CBCND, EGFR1, BMP #### [address] [address]Tzrowgyxec (Bld) [Volume fraction]27.6 %Low42.0-52.0Medical Center HospitalComment on above:Performed By: #### ANION, CBCND, EGFR1, BMP #### [address] [address]Srljialmue (Bld) [Mass/Vol]9.2 g/dLLow14.0-18.0Medical Center HospitalComment on above:Performed By: #### ANION, CBCND, EGFR1, BMP #### [facility] [address] [place] [address]NEW (RBC) [Entitic mass]34.2 caKctq24.0-33.0Medical Center HospitalComment on above:Performed By: #### ANION, CBCND, EGFR1, BMP #### [facility] [address] [place] [address]YVCB (RBC) [Mass/Vol]33.3 g/aPMalzta09.2-35.5SUniversity HospitalComment on above:Performed By: #### ANION, CBCND, EGFR1, BMP #### [facility] [address] [place] [address]RQH (RBC) [Entitic vol]102.6 dHFomw98.0-94.0Medical Center HospitalComment on above:Performed By: #### ANION, CBCND, EGFR1, BMP #### [facility] [address] [place] [address]OCMZODSD795 thou/ax5Fgbffc763-825TeeukMedical Center Hospital Comment on above:Performed By: #### ANION, CBCND, EGFR1, BMP #### [facility] [address] [place] [address]Kiqemnlb mean volume (Bld) [Entitic vol]10.2 fLNormal9.4-12.4SUniversity HospitalComment on above:Performed By: #### ANION, CBCND, EGFR1, BMP #### [facility] [address] [address]VZV0.69 mill/fi1Doh0.70-6.10Medical Center HospitalComment on above:Performed By: #### ANION, CBCND, EGFR1, BMP #### [facility] [address] [place] [address]XBC-NX05.1 hZEacb03.0-45.0Medical Center HospitalComment on above:Performed By: #### ANION, CBCND, EGFR1, BMP #### [facility] [address] [place] [address]68[address]JMT50.6 thou/cz6Mzqk2.8-10.8Medical Center HospitalComment on above:Performed By: #### ANION, CBCND, EGFR1, BMP #### [facility] [address] [place] [address] 49644COQ Rhythm Stripon 45-48-3019IPSCLTLIgaClinch Valley Medical CenterBon [facility] HospitalGFR, ESTIMATEDon 32-57-5387NDM/1.73 sq M.predicted MDRD (S/P/Bld) [Vol rate/Area]46 mL/min/{1.73_m2}Abnormal>60Bon [facility] HospitalComment on above:Pediatric calculator link https://www.kidney.org/professionals/kdoqi/gfr_calculatorped Effective Dec 07, 2021 These results are not intended for use in patients <18 years of age. eGFR results are calculated without a race factor using the 2020 CKD-EPI equation. Careful clinical correlation is recommended, particularly when comparing to results calculated using previous equations. The CKD-EPI equation is less accurate in patients with extremes of muscle mass, extra-renal metabolism of creatinine, excessive creatine ingestion, or following therapy that affects renal tubular secretion. Performed at [facility] [address] [address] Result Comment: Pediatric calculator link https://www.kidney.org/professionals/kdoqi/gfr_calculatorped Effective Dec 07, 2021 These results are not intended for use in patients <18 years of age. eGFR results are calculated without a race factor using the 2020 CKD-EPI equation. Careful clinical correlation is recommended, particularly when comparing to results calculated using previous equations. The CKD-EPI equation is less accurate in patients with extremes of muscle mass, extra-renal metabolism of creatinine, excessive creatine ingestion, or following therapy that affects renal tubular secretion.Performed By: #### ANION, CBCND, EGFR1, BMP #### [facility] [address] [place] [address] 52985Ze Panel Informationon 46-68-9436Jrjuhcaccmrezb and review of laboratory resultsAbnormalFauquier Health SystemANION GAPon 04-78-0519Kmfxy gap [Moles/Vol]13.0 mmol/LNormal8.0-16.0Medical Center HospitalComment on above:Result Comment: ANION GAP = Sodium -(Chloride + CO2)Performed By: #### NTBNP, TSH3, HH #### [facility] [address] [place], [place] [address]Xvmmc Gapon 10-10-8962Nbcvn gap [Moles/Vol]13.0 mmol/L8.0 - 16.0 meq/LBon [facility] HospitalComment on above:ANION GAP = Sodium -(Chloride + CO2) Performed at [facility] [address] [place] [address] BASIC METABOL PANELon 15-68-7567Dmsetif [Mass/Vol]8.9 mg/dLNormal8.5-10.5SUniversity HospitalComment on above:Performed By: #### REINA CORRALES, #### [facility] [address] [place] [address] 21211Shehqoqu [Moles/Vol]97 mmol/GRoy70-251LitmbMedical Center Hospital Comment on above:Performed By: #### REINA CORRALES, #### [facility] [address] [place] [address] 81851SJ6 [Moles/Vol]24 mmol/ELjisms67-16XpkxrMedical Center Hospital Comment on above:Performed By: #### REINA CORRALES, #### [facility] [address] [place] [address] 77206Sntiesdeqr [Mass/Vol]1.2 mg/dLNormal0.4-1.2SUniversity HospitalComment on above:Performed By: #### REINA CORRALES, #### [facility] [address] [place] [address] 79111Hrcmlsn [Mass/Vol]109 mg/zHLzji50-903UrtnvMedical Center Hospital Comment on above:Performed By: #### REINA CORRALES, #### [facility] [address] [place] [address] 59169Klnvtoaaf [Moles/Vol]3.5 mmol/LNormal3.5-5.2SUniversity HospitalComment on above:Performed By: #### REINA CORRALES, HH #### [facility] [address] [place] [address] 39723Fvogeb [Moles/Vol]134 mmol/YOzz598-445JxryaMedical Center Hospital Comment on above:Performed By: #### REINA CORRALES, HH #### [facility] [address] [place], [place] [address]Jnud nitrogen [Mass/Vol]21 mg/dLNormal7-22SaNorthwest Texas Healthcare SystemComment on above:Performed By: #### NTBNP, TSH3, #### [facility] [address] [place], [place] [address]Bznbw metabolic 2000 panelon 52-98-5785Prmlzqo [Mass/Vol]8.9 mg/dL 8.5 - 10.5 mg/dLBon [facility] HospitalComment on above:Performed at [facility] [address] [place], [place] [address]Sbfwsnmq [Moles/Vol]97 mmol/LLow98 - 111 meq/LBon SecOchsner Medical Center HealthCO2 [Moles/Vol]24 mmol/L23 - 33 meq/LBon [facility] HospitalCreatinine [Mass/Vol]1.2 mg/dL0.4 - 1.2 mg/dLBon [facility] HospitalGlucose [Mass/Vol]109 mg/hEZdnx15 - 108 mg/dLBon [facility] HospitalInterpretation and review of laboratory resultsAbnormalBon [facility] HospitalPotassium [Moles/Vol]3.5 mmol/L3.5 - 5.2 meq/LBon [facility] Sodium [Moles/Vol]134 mmol/ZThm420 - 145 meq/LBon [facility] HospitalUrea nitrogen [Mass/Vol]21 mg/dL7 - 22 mg/dLBon [facility] HospitalGFR, ESTIMATEDon 50-26-5376UPP/1.73 sq M.predicted MDRD (S/P/Bld) [Vol rate/Area]60 mL/min/{1.73_m2}Normal>60Bon [facility] HospitalComment on above:Pediatric calculator link https://www.kidney.org/professionals/kdoqi/gfr_calculatorped Effective Dec 07, 2021 These results are not intended for use in patients <18 years of age. eGFR results are calculated without a race factor using the 2020 CKD-EPI equation. Careful clinical correlation is recommended, particularly when comparing to results calculated using previous equations. The CKD-EPI equation is less accurate in patients with extremes of muscle mass, extra-renal metabolism of creatinine, excessive creatine ingestion, or following therapy that affects renal tubular secretion[place] [address] Result Comment: Pediatric calculator link https://www.kidney.org/professionals/kdoqi/gfr_calculatorped Effective Dec 07, 2021 These results are not intended for use in patients <18 years of age. eGFR results are calculated without a race factor using the 2020 CKD-EPI equation. Careful clinical correlation is recommended, particularly when comparing to results calculated using previous equations. The CKD-EPI equation is less accurate in patients with extremes of muscle mass, extra-renal metabolism of creatinine, excessive creatine ingestion, or following therapy that affects renal tubular secretion.Performed By: #### REINA CORRALES, #### [address] [address]FPQ,HCTon 03-24-6104Stctuqajxc (Bld) [Volume fraction]27.7 %Low 42.0-52.0S[facility] County Community HospitalComment on above:Performed at [address] [address]Dplfpnsdf By: #### REINA CORRALES, #### [address] [address]Kectkadabu (Bld) [Mass/Vol]9.3 g/dLLow14.0-18.0[facility] on above:Performed By: #### REINA CORRALES, #### [address] [address]Foqgrsyrnf and Hematocrit panel (Bld)on 49-93-0856Tqfywfpdvvbpwa and review of laboratory resultsAbnormalBon [facility] CenterNo Panel Informationon 13-14-5439Tuu [facility] HospitalANION GAPon 29-94-8888Fpisi gap [Moles/Vol]11.0 mmol/LNormal8.0-16.0Medical Center HospitalComment on above:Result Comment: ANION GAP = Sodium -(Chloride + CO2) Performed By: #### POCGL #### [address] [address]Zrkcd Gapon 17-91-3236Iysid gap [Moles/Vol]11.0 mmol/L8.0 - 16.0 meq/LBon [facility] HospitalComment on above:ANION GAP = Sodium -(Chloride + CO2) Performed at [facility] [address] [place] [address] BASIC METABOL PANELon 79-71-0432Wucwoum [Mass/Vol]8.5 mg/dLNormal8.5-10.5SUniversity HospitalComment on above:Performed By: #### POCGL #### [address] [address]Jwvdiltw [Moles/Vol]97 mmol/GNef08-855KfavsMedical Center Hospital Comment on above:Performed By: #### POCGL #### [address] [address]PW4 [Moles/Vol]26 mmol/AJmwbmc53-54EkcptMedical Center Hospital Comment on above:Performed By: #### POCGL #### [address] [address]Ldkiednhrv [Mass/Vol]1.1 mg/dLNormal0.4-1.2SUniversity HospitalComment on above:Performed By: #### POCGL #### [address] [address]Dhpfbit [Mass/Vol]100 mg/pNRlqmzj05-296IlzadMedical Center Hospital Comment on above:Performed By: #### POCGL #### [address] [address]Pfbazybir [Moles/Vol]2.9 mmol/LLow3.5-5.2SUniversity HospitalComment on above:Performed By: #### POCGL #### [facility] [address] [place] [address]Iauere [Moles/Vol]134 mmol/QEmh778-835BpzkiMedical Center Hospital Comment on above:Performed By: #### POCGL #### [facility] [address] [place] [address] 03[address]Cxwn nitrogen [Mass/Vol]17 mg/dLNormal7-22Medical Center HospitalComment on above:Performed By: #### POCGL #### [address] [address]XCAIV CULTUREon 42-76-6143Xiuoqjbx identified Cx Nom (Bld) MICROBIOLOGY REPORT [facility], [address] [place] [address], [facility] PATIENT: TAVO WALLIS LOCATION: [facility] : 1940 AGE: 83 SEX: M ADM: 02/21/24 Att. Physician: RANDI BURRIS Order Id: [id number] Req. Physician: RANDA KING Source: xrvci-Hqnqg-xhschnhvck <5.5oz./set volume Site: Peripheral Vein Collected: 02/25/24 07:19 Current Antibiotics: not stated Antibiotics comment: C O M M E N T S Source:->Blood STATUS OF ORDERED AND REPORTED TESTS BLOOD CULTURE FINAL 03/01/24 BLOOD CULTURE FINAL 03/01/24 08:06 02/26/24 No growth 24 hours. 02/27/24 No growth 48 hours. 03/01/24 No growth at 5 daysNormalSUniversity HospitalBacteria identified Cx Nom (Bld)MICROBIOLOGY REPORT [facility], [address] [place] [address], [facility] PATIENT: TAVO WALLIS LOCATION: [facility] : 1940 AGE: 83 SEX: M ADM: 02/21/24 Att. Physician: RANDI BURRIS Order Id: [id number] Req. Physician: ORIANA, OLUREMI Source: fzice-Mbqxs-aqhzxotuqo <5.5oz./set volume Site: Peripheral Vein Collected: 02/25/24 07:19 Current Antibiotics: not stated Antibiotics comment: STATUS OF ORDERED AND REPORTED TESTS BLOOD CULTURE FINAL 03/01/24 BLOOD CULTURE FINAL 03/01/24 08:06 02/26/24 No growth 24 hours. 02/27/24 No growth 48 hours. 03/01/24 No growth at 5 daysNoMedical Arts HospitalBaten broeck hospital metabolic 2000 panelon 05-86-9822Nsuorbk [Mass/Vol]8.5 mg/dL8.5 - 10.5 mg/dLBon SecCleveland Clinic South Pointe HospitalComment on above:Performed at [facility] [address] [place] [address]Crblxdjp [Moles/Vol]97 mmol/LLow98 - 111 meq/LBon SecSwedish Medical Center Ballardy HealthCO2 [Moles/Vol]26 mmol/L23 - 33 meq/LBon SecOchsner Medical Center HealthCreatinine [Mass/Vol]1.1 mg/dL0.4 - 1.2 mg/dLBon [facility] HealthGlucose [Mass/Vol]100 mg/dL70 - 108 mg/dLBon [facility] HealthInterpretation and review of laboratory resultsAbnormalBon Secours [facility] Centery HealthPotassium [Moles/Vol]2.9 mmol/LLow3.5 - 5.2 meq/LBon SecOchsner Medical Center HealthSodium [Moles/Vol]134 mmol/LLow 135 - 145 meq/LBon SecOchsner Medical Center HealthUrea nitrogen [Mass/Vol]17 mg/dL7 - 22 mg/dLBon SecOchsner Medical Center HealthCBCon 11-97-8733Bhbrtwxymde distribution width (RBC) [Entitic vol]57.1 kZKjeb16.0 - 45.0 fLBon [facility] Interpretation and review of laboratory resultsAbnormalBon SecOchsner Medical Center Health Platelets (Bld) [#/Vol]180 10*3/uLBon [facility] Centery HealthRBC (Bld) [#/Vol]2.49 10*6/uLLowBon Secours [facility] Centery HealthWBC (Bld) [#/Vol]11.7 10*3/uLHighBon [facility]ours [facility] Hospital HealthBon [facility]cy HealthCBC NO DIFFERENTIALon 18-43-7347Exxzcpiltce distribution width (RBC) [Ratio]14.3 %Pqyahg89.5-14.5Bon [facility] Comment on above:Performed By: #### REINA CORRALES, #### [facility] [address] [place] [address] 268[address]Jxvuposrrx (Bld) [Volume fraction]27.1 %Low42.0-52.0[facility] on above:Performed By: #### REINA CORRALES, HH #### [facility] [address] [place] [address] 323[address]Jqlsaortiq (Bld) [Mass/Vol]8.8 g/dLLow14.0-18.0Bon [facility] on above:Performed By: #### REINA CORRALES, HH #### [facility] [address] [place] [address] 31529UWC (RBC) [Entitic mass]35.3 owZten26.0-33.0Bon [facility] HospitalComment on above:Performed By: #### REINA CORRALES, #### [facility] [address] [place] [address] 014[address]VLWI (RBC) [Mass/Vol]32.5 g/iCJzqted38.2-35.5Bon [facility] on above:Performed By: #### REINA CORRALES, #### [facility] [address] [place] [address] 614[address]FGG (RBC) [Entitic vol]108.[address] yETvvs06.0-94.0Bon [facility] on above:Performed By: #### REINA CORRALES, #### [facility] [address] [place] [address] 060[address]VQJBBZRC565 thou/yg7Iyolbq387-928IbwhvMedical Center Hospital Comment on above:Performed By: #### REINA CORRALES, #### [facility] [address] [place] [address] 309[address]Qzlrnyfd mean volume (Bld) [Entitic vol]10.0 fLNormal9.4-12.4Bon [facility]itationsur[facility] on above:Performed at [facility] [address] [address]Yjmhcoitj By: #### REINA CORRALES, JE #### [facility] [address] [place] [address] 445[address]LND5.49 mill/mm0Qep8.70-6.10Medical Center HospitalComment on above:Performed By: #### REINA CORRALES, JE #### [facility] [address] [place] [address] 23632YRI-QT17.1 mUOthz78.0-45.0Medical Center HospitalComsurgeons choice medical center on above:Performed By: #### REINA CORRALES, JE #### [facility] [address] [address]KUB96.7 thou/wy6Mdvd5.8-10.8Medical Center HospitalComment on above:Performed By: #### REINA CORRALES, JE #### [facility] [address] [address]IPB, ESTIMATEDon 39-60-6331JAZ/1.73 sq M.predicted MDRD (S/P/Bld) [Vol rate/Area]67 mL/min/{1.73_m2}Normal>60Bon [facility] on above:Pediatric calculator link https://www.kidney.org/professionals/kdoqi/gfr_calculatorped Effective Dec 07, 2021 These results are not intended for use in patients <18 years of age. eGFR results are calculated without a race factor using the 2020 CKD-EPI equation. Careful clinical correlation is recommended, particularly when comparing to results calculated using previous equations. The CKD-EPI equation is less accurate in patients with extremes of muscle mass, extra-renal metabolism of creatinine, excessive creatine ingestion, or following therapy that affects renal tubular secretion. Performed at [facility] [address] [address] Result Comment: Pediatric calculator link https://www.kidney.org/professionals/kdoqi/gfr_calculatorped Effective Dec 07, 2021 These results are not intended for use in patients <18 years of age. eGFR results are calculated without a race factor using the 2020 CKD-EPI equation. Careful clinical correlation is recommended, particularly when comparing to results calculated using previous equations. The CKD-EPI equation is less accurate in patients with extremes of muscle mass, extra-renal metabolism of creatinine, excessive creatine ingestion, or following therapy that affects renal tubular secretion.Performed By: #### POCGL #### [address] [address]SDU,HCTon 84-15-0251Onibdwjsos (Bld) [Volume fraction]25.2 %Low 42.0-52.0[facility] on above:Performed at [address] [address]Ofwnyhnpl By: #### POCGL #### [address] [address]Qpnshkptku (Bld) [Mass/Vol]8.2 g/dLLow14.0-18.0[facility] on above:Performed By: #### POCGL #### [address] [address]Lefiwktzeq and Hematocrit panel (Bld)on 97-61-9045Nlndvhtnwywobj and review of laboratory resultsAbnormalBon [facility] Surgery CenterInfluenza virus A and B RNA and SARS-CoV-2 (COVID-19) N gene panel SMITHA+probe (Resp)on 45-13-5282YTMJF RNA SMITHA+probe Ql (Resp)Not detectedNOT DETECTEDSmyth County Community HospitalFLUBV RNA SMITHA+probe Ql (Resp)Not detectedNOT DETECTEDCentra Southside Community Hospital on above:Performed at [address] [address]JMES-RpB-2 (COVID-19) RNA SMITHA+probe Ql (Resp)Not detectedNOT DETECTEDCentra Southside Community Hospital on above:Not Detected results do not preclude SARS-CoV-2 infection and should not be used as the sole basis for patient management decisions. Results must be combined with clinical observations, patient history, and epidemiological information. Testing was performed using PRAVIN Salome SARS-CoV-2 and Influenza A/B nucleic acid assay. This test is a multiplex Real-Time Reverse Transcriptase Polymerase Chain Reaction (RT-PCR)-based in vitro diagnostic test intended for the qualitative detection of nucleic acids from SARS-CoV-2, influenza A, and influenza B in nasopharyngeal and nasal swab specimens. Bon [facility] HospitalLACTIC ACID, SEPSISon 59-93-5278CJOKUL ACID, SEPSIS0.9 mmol/LNormal0.5-1.9Medical Center HospitalComment on above:Performed By: #### NTBNP, TSH3, #### [address] [address]VUMIEC ACID, SEPSIS1.0 mmol/LNormal0.5-1.9Medical Center HospitalComment on above:Performed By: #### LACDS #### [address] [address]Xqvgppx, Sepsison 23-59-6172Lyxrmu Acid, Sepsis0.9 mmol/L0.5 - 1.9 mmol/LBon [facility] HospitalComment on above:Performed at [facility] [address] [place] [address]Prs [facility] HospitalLactic Acid, Sepsis 1.0 mmol/L0.5 - 1.9 mmol/LBon [facility] HospitalComment on above:Performed at [facility] [place] [id number] HospitalNo Panel Informationon 75-48-6075Zgv [facility] HospitalSARS-COV-2 & INFLUENZA A/Bon 11-62-6307RBFVSLNJO A, RT-PCRNot detectedNormalNOT DETECTEDMedical Center HospitalComment on above:Performed By: #### CVFLU #### [address] [address]WOBSIRHGX B, RT-PCRNot detectedNormalNOT DETECTEDMedical Center HospitalComment on above:Performed By: #### CVFLU #### [address] [address]PRCA-OwS-8 (COVID-19) RNA SMITHA+probe Ql (Unsp spec)Not detected NormalNOT DETECTEDMedical Center HospitalComment on above:Result Comment: Not Detected results do not preclude SARS-CoV-2 infection and should not be used as the sole basis for patient management decisions. Results must be combined with clinical observations, patient history, and epidemiological information. Testing was performed using PRAVIN Salome SARS-CoV-2 and Influenza A/B nucleic acid assay. This test is a multiplex Real-Time Reverse Transcriptase Polymerase Chain Reaction (RT-PCR)-based in vitro diagnostic test intended for the qualitative detection of nucleic acids from SARS-CoV-2, influenza A, and influenza B in nasopharyngeal and nasal swab specimens.Performed By: #### CVFLU #### [address] [address]KDCHK GAPon 56-59-8655Mhdgq gap [Moles/Vol]11.0 mmol/LNormal 8.0-16.0Medical Center HospitalComment on above:Result Comment: ANION GAP = Sodium -(Chloride + CO2)Performed By: #### POCGL #### [address] [address]Neqmh Gapon 34-31-0566Ftuvn gap [Moles/Vol]11.0 mmol/L8.0 - 16.0 meq/LBon [facility] HospitalComment on above:ANION GAP = Sodium -(Chloride + CO2) Performed at [facility] [address] [address] BASIC METABOL PANELon 57-21-3587Xihqmgd [Mass/Vol]8.6 mg/dLNormal8.5-10.5SUniversity HospitalComment on above:Performed By: #### POCGL #### [address] [address]Mldpqrjo [Moles/Vol]104 mmol/YXffmba56-610ZcwamMedical Center HospitalComment on above:Performed By: #### POCGL #### [address] [address]XQ9 [Moles/Vol]23 mmol/KHvmdxx18-35VafjgMedical Center Hospital Comment on above:Performed By: #### POCGL #### [address] [address]Mxbuvzhuoj [Mass/Vol]1.2 mg/dLNormal0.4-1.2SUniversity HospitalComment on above:Performed By: #### POCGL #### [facility] [address] [place] [address]Zwzrzad [Mass/Vol]126 mg/iCRazz79-835QkwaoMedical Center Hospital Comment on above:Performed By: #### POCGL #### [facility] [address] [place] [address] 337[address]Dnhcklwok [Moles/Vol]3.9 mmol/LNormal3.5-5.2SUniversity HospitalComment on above:Performed By: #### POCGL #### [facility] [address] [place] [address]Jtndik [Moles/Vol]138 mmol/EDqosya310-564BvtksMedical Center HospitalComment on above:Performed By: #### POCGL #### [facility] [address] [place] [address] 501[address]Ngrl nitrogen [Mass/Vol]20 mg/dLNormal7-22Medical Center HospitalComment on above:Performed By: #### POCGL #### [address] [address]Dwamr metabolic 2000 panelon 65-17-8950Kcydqfo [Mass/Vol]8.6 mg/dL 8.5 - 10.5 mg/dLBon SecSwedish Medical Center Ballardy St[facility] Ironton CampusComment on above:Performed at [facility] [address] [place] [address]Eprbufif [Moles/Vol]104 mmol/L98 - 111 meq/LBon [facility]ours Mercy HealthCO2 [Moles/Vol]23 mmol/L23 - 33 meq/LBon [facility] HealthCreatinine [Mass/Vol]1.2 mg/dL0.4 - 1.2 mg/dLBon Secours Mercy HealthGlucose [Mass/Vol]126 mg/fNPuxn77 - 108 mg/dLBon Secours Mercy HealthInterpretation and review of laboratory resultsAbnormalBon Secours Mercy HealthPotassium [Moles/Vol]3.9 mmol/L3.5 - 5.2 meq/LBon [facility] Sodium [Moles/Vol]138 mmol/L135 - 145 meq/LBon Secours Mercy HealthUrea nitrogen [Mass/Vol]20 mg/dL7 - 22 mg/dLBon Secours Mercy HealthCT HEAD WO CONTRASTon 25-96-8768GU HEAD WO CONTRASTCT head without contrast COMPARISON: None FINDINGS: Global cerebral volume loss and chronic microvascular ischemic changes. No acute intracranial hemorrhage, extra-axial fluid collection, mass effect, or midline shift. Ventricular system and basilar cisterns are patent. Hensley-white matter differentiation is maintained. No gross orbital abnormality. No suspicious or acute bone lesion. Mastoid air cells and paranasal sinuses are predominantly clear. IMPRESSION: 1. No acute intracranial abnormality. 2. Global cerebral volume loss and chronic microvascular ischemic changes. This document has been electronically signed by: Dudley Mattson MD on 02/24/2024 07:43 PM All CTs at this facility use dose modulation techniques and iterative reconstructions, and/or weight-based dosing when appropriate to reduce radiation to a low as reasonably achievable. Interpreted by: Dudley Mattson MD Signed by: Dudley Mattson MD 02/24/24 Final resultNormalSUniversity HospitalCT Head WO contraston . No acute intracranial abnormality. 2. Global cerebral volume loss and chronic microvascular ischemic changes. This document has been electronically signed by: Dudley Mattson MD on 02/24/2024 07:43 PM All CTs at this facility use dose modulation techniques and iterative reconstructions, and/or weight-based dosing when appropriate to reduce radiation to a low as reasonably achievable.[facility] CONSOLIDATEDCT head without contrast COMPARISON: None FINDINGS: Global cerebral volume loss and chronic microvascular ischemic changes. No acute intracranial hemorrhage, extra-axial fluid collection, mass effect, or midline shift. Ventricular system and basilar cisterns are patent. Hensley-white matter differentiation is maintained. No gross orbital abnormality. No suspicious or acute bone lesion. Mastoid air cells and paranasal sinuses are predominantly clear. [facility] Dudley Leger MD - 02/24/2024 CT head without contrast COMPARISON: None FINDINGS: Global cerebral volume loss and chronic microvascular ischemic changes. No acute intracranial hemorrhage, extra-axial fluid collection, mass effect, or midline shift. Ventricular system and basilar cisterns are patent. Hensley-white matter differentiation is maintained. No gross orbital abnormality. No suspicious or acute bone lesion. Mastoid air cells and paranasal sinuses are predominantly clear. IMPRESSION: 1. No acute intracranial abnormality. 2. Global cerebral volume loss and chronic microvascular ischemic changes. This document has been electronically signed by: Dudley Mattson MD on 02/24/2024 07:43 PM All CTs at this facility use dose modulation techniques and iterative reconstructions, and/or weight-based dosing when appropriate to reduce radiation to a low as reasonably achievable. [facility] HospitalRadiology Study observation (narrative)[facility] CenterTPP [facility] Development [facility] CampusCT Head WO contrastOrdered By: Dudley Mattson on 86-83-4594Tvy [facility] Rehabilitation HospitalGFR, ESTIMATEDon 32-92-2147FPL/1.73 sq M.predicted MDRD (S/P/Bld) [Vol rate/Area]60 mL/min/{1.73_m2}Normal>60Bon [facility] on above:Pediatric calculator link https://www.kidney.org/professionals/kdoqi/gfr_calculatorped Effective Dec 07, 2021 These results are not intended for use in patients <18 years of age. eGFR results are calculated without a race factor using the 2020 CKD-EPI equation. Careful clinical correlation is recommended, particularly when comparing to results calculated using previous equations. The CKD-EPI equation is less accurate in patients with extremes of muscle mass, extra-renal metabolism of creatinine, excessive creatine ingestion, or following therapy that affects renal tubular secretion. Performed at [facility] [address] [place] [address] Result Comment: Pediatric calculator link https://www.kidney.org/professionals/kdoqi/gfr_calculatorped Effective Dec 07, 2021 These results are not intended for use in patients <18 years of age. eGFR results are calculated without a race factor using the 2020 CKD-EPI equation. Careful clinical correlation is recommended, particularly when comparing to results calculated using previous equations. The CKD-EPI equation is less accurate in patients with extremes of muscle mass, extra-renal metabolism of creatinine, excessive creatine ingestion, or following therapy that affects renal tubular secretion.Performed By: #### ANION, CBCND, EGFR1, BMP #### [facility] [address] [place] [address] 59406TPDBWOG POCon 11-59-1747Oydmzby [Mass/Vol]126 mg/gWYnvg25-397Fek [facility] on above:Performed at [facility] [address] [place] [address] 74227Htcoanbwx By: #### POCGL #### [address] [address]Qufzzpr Auto test strip (Bld) [Mass/Vol]on 02-24-2024 Interpretation and review of laboratory resultsAbnormRiverside Tappahannock Hospital Bon [facility] Rehabilitation HospitalHGB,HCTon 33-41-4636Eoawgxmhzz (Bld) [Volume fraction] 26.3 %Low42.0-52.0Bon [facility] on above:Performed at [facility] [address] [place] [address] 30298Nvdcaaijx By: #### POCGL #### [address] [address]Wcuyphgewc (Bld) [Mass/Vol]8.3 g/dLLow14.0-18.0Bon [facility] on above:Performed By: #### POCGL #### [address] [address]Gmudrkovgn and Hematocrit panel (Bld)on 35-42-0711Vywovdzccylqah and review of laboratory resultsAbnoSanford Vermillion Medical CenterNo Panel Informationon 90-61-2152Gom [facility] Rehabilitation HospitalPortable XR Chest AP single viewon . Bvewtgsx-kd-ydysbd cardiomegaly with pulmonary edema and pleural effusions. Findings are consistent with CHF. This document has been electronically signed by: Dudley Mattson MD on 02/24/2024 09:42 [facility]WSA[facility]1 view chest x-ray Comparison: None Findings: Ybcuqdda-ub-czhjyh cardiomegaly. Small left and trace right pleural effusions. Cephalization pulmonary vasculature with diffusely increased interstitial markings and diffuse hazy alveolar opacity. No pneumothorax. [facility] Dudley Leger MD - 02/24/2024 1 view chest x-ray Comparison: None Findings: Ijfkqaye-rt-xameng cardiomegaly. Small left and trace right pleural effusions. Cephalization pulmonary vasculature with diffusely increased interstitial markings and diffuse hazy alveolar opacity. No pneumothorax. IMPRESSION: 1. Olrgmcut-lo-hfwtkk cardiomegaly with pulmonary edema and pleural effusions. Findings are consistent with CHF. This document has been electronically signed by: Dudley Mattson MD on 02/24/2024 09:42 PM [facility] SystemRadiology Study observation (narrative)[facility] HospitalXR CHEST PORTABLEon [id number] CHEST PORTABLE1 view chest x-ray Comparison: None Findings: Kridwebi-dm-xzldid cardiomegaly. Small left and trace right pleural effusions. Cephalization pulmonary vasculature with diffusely increased interstitial markings and diffuse hazy alveolar opacity. No pneumothorax. IMPRESSION: 1. Dsumyvmm-bp-nlpwhd cardiomegaly with pulmonary edema and pleural effusions. Findings are consistent with CHF. This document has been electronically signed by: Dudley Mattson MD on 02/24/2024 09:42 PM Interpreted by: Dudley Mattson MD Signed by: Dudley Mattson MD 02/24/24 Final resultNormalSUniversity HospitalANION GAPon 12-47-7640Smuvk gap [Moles/Vol]10.0 mmol/LNormal8.0-16.0Medical Center HospitalComment on above: Result Comment: ANION GAP = Sodium -(Chloride + CO2)Performed By: #### GREG CORRALES3, #### [facility] [address] [place], [place] [address]Gaecb Gapon 44-97-6000Dtehv gap [Moles/Vol]10.0 mmol/L8.0 - 16.0 meq/LBon [facility] HospitalComment on above:ANION GAP = Sodium -(Chloride + CO2) Performed at [facility] [address] [place] [address] BASIC METABOL PANELon 55-60-3799Gihmkqt [Mass/Vol]8.4 mg/dLLow8.5-10.5SUniversity HospitalComment on above:Performed By: #### GREG CORRALES3, #### [facility] [address] [place], [place] [address]Jojhrfmv [Moles/Vol]105 mmol/QAnecwe87-765EexgvMedical Center HospitalComment on above:Performed By: #### REINA CORRALES, HH #### [facility] [address] [place] [address] 49342WO0 [Moles/Vol]22 mmol/HEhv91-79MrgteMedical Center HospitalComment on above:Performed By: #### GREG CORRALES3, HH #### [facility] [address] [place] [address] 76168Odabdhtafp [Mass/Vol]1.3 mg/dLHigh0.4-1.2SUniversity HospitalComment on above:Performed By: #### REINA CORRALES, HH #### [facility] [address] [place] [address]Auhilcj [Mass/Vol]148 mg/iFFhun10-139EvbdtMedical Center Hospital Comment on above:Performed By: #### REINA CORRALES, HH #### [facility] [address] [place] [address]Krpuhcynu [Moles/Vol]4.3 mmol/LNormal3.5-5.2SUniversity HospitalComment on above:Performed By: #### REINA CORRALES, HH #### [facility] [address] [place] [address] 04393Fppkih [Moles/Vol]137 mmol/VFjddsj550-129NslxiMedical Center HospitalComment on above:Performed By: #### REINA CORRALES, #### [facility] [address] [place] [address] 747[address]Hbno nitrogen [Mass/Vol]24 mg/dLHigh7-22Medical Center HospitalComment on above:Performed By: #### REINA CORRALES, HH #### [facility] [address] [place] [address] 128[address]Vdlea metabolic 2000 panelon 88-73-9608Obsjvfv [Mass/Vol]8.4 mg/dL Low8.5 - 10.5 mg/dLBon [facility] Rehabilitation HospitalComment on above:Performed at [facility] [address] [place] [address] 20[address]Yjqfdnzc [Moles/Vol]105 mmol/L 98 - 111 meq/LBon [facility] HospitalCO2 [Moles/Vol]22 mmol/LLow23 - 33 meq/L Bon [facility]Creatinine [Mass/Vol]1.3 mg/dLHigh0.4 - 1.2 mg/dLBon PackLinkGlucose [Mass/Vol]148 mg/qOVjtr10 - 108 mg/dLBon PackLinkPotassium [Moles/Vol]4.3 mmol/L3.5 - 5.2 meq/LBon PackLinkSodium [Moles/Vol]137 mmol/L135 - 145 meq/LBon PackLinkUrea nitrogen [Mass/Vol]24 mg/dLHigh7 - 22 mg/dLBon PackLinkCardiac echo study ProcedureOrdered By: Bambi Huntley on 33-58-6983Xdbfpflxg Aorta3.0 cm [employer] Phone: Ascending Aorta Index1.53 cm/m2[facility] [employer] Phone: AV Cusp Mmode1.7 cmHealthsouth Rehabilitation Hospital Of [facility] [employer] Phone: AV Peak Mhtvtyul41nnEjCmw [employer] Phone: AV Peak Velocity1.6 m/sBon [employer] Phone: AV Velocity Ratio0.44[employer] Phone: Body surface area Derived from formula2 m2[facility] [employer] Phone: EF BP36 %Sjlrarqv72 - 100 %[employer] Work Phone: Est. RA Rtqqvysw2luZqGbd [employer] Phone: Fractional Shortening 2D18 %28 - 44 %[employer] Phone: Interpretation and review of laboratory results AbnormalA[employer] Phone: IVSd1.0 cm0.6 - 1.0 cmApture Phone: LA Area 2C22.6 cm2Bon [facility] Work Phone: la Area 4C22.8 cm2Bon [facility] Work Phone: LA Diameter4.4 cmBon [facility] Work Phone: LA Major Axis6.5 cmBon [facility] Work Phone: la Minor Axis6.0 cmBon [facility] Work Phone: LA Size Index2.24 cm/m2Bon [facility] Work Phone: LA Volume BP68 rLHqxlrdwb36 - 58 mLBon [facility] Work Phone: LA Volume Index BP35 ml/l8Vdlmldhw85 - 34 ml/m2Bon [facility] Work Phone: LA Volume Index MOD A2C34 ml/m216 - 34 ml/m2Bon [facility] Work Phone: LA Volume Index MOD A4C33 ml/m216 - 34 ml/m2Bon [facility] Work Phone: LA Volume MOD A2C67 jYIrgturfy67 - 58 mLBon [employer] Work Phone: LA Volume MOD A4C65 hCIlkeuxor85 - 58 mLBon [facility] Work Phone: LV EDV M9P074 mLIntegene [employer] [facility] Work Phone: LV EDV Y3B292 mLBon [facility] Work Phone: LV EDV Index A2C69 mL/m2Bon [facility] Work Phone: LV EDV Index A4C66 mL/m2Bon [facility] Work Phone: LV Ejection Fraction A2C38 %[employer] Work Phone: LV Ejection Fraction A4C37 %Bon [facility] Work Phone: LV ESV A2C83 mLBon [facility] Work Phone: [phone] ESV A4C82 mLBon [facility] Work Phone: [phone] ESV Index A2C42 mL/m2Bon [facility] Work Phone: [phone] ESV Index A4C42 mL/m2Bon [facility] Work Phone: [phone] IVRT63.0 msBon [facility] Work Phone: [phone] Mass 2D194.4 g88 - 224 gBon [facility] Work Phone: [phone] Mass 2D Index99.2 g/m249 - 115 g/m2Bon [facility] Work Phone: [phone] RWT Ratio0.44Bon [employer] Work Phone: [phone] cm4.2 - 5.9 cmBon [facility] Work Phone: [phone] Index2.55 cm/m2Bon [facility] Work Phone: LVIDs4.1 cmBon [employer] Work Phone: LVIDs Index2.09 cm/m2Bon [facility] Work Phone: [phone] Peak Uooixete5ogPrCsf [facility] Work Phone: [phone] Peak Velocity0.7 m/sBon [facility] Work Phone: [phone] cmAbnormal0.6 - 1.0 cmBon [facility] Work Phone: MR Peak Pzgvpozm43frShLis [employer] Work Phone: MR Peak Velocity4.5 m/sBon [facility] Work Phone: [phone] E Velocity1.63 m/sBon [facility] Work Phone: PR Max Velocity1.0 m/sBon [employer] Phone: Pulmonary Artery DXU6bmFbXyt [employer] Phone: [phone] Max Velocity0.8 m/sBon [employer] Phone: [phone] Peak Crklqohe8tuYyBkh [employer] Phone: [phone] cmBon [employer] Phone: [phone] [employer] Phone: [phone] cmAbnormal1.7 cmBon [employer] Phone: TR Max Velocity3.02 m/sBon [employer] Phone: TR Peak Daefoxoh77ccOyWwm [employer] Phone: TV E Wave Velocity0.5 m/sBon [employer] Phone: [phone] [employer] Phone: Cardiac echo study Procedureon 58-26-2534Aumx Ventricle: Moderately reduced left ventricular systolic function with a visually estimated EF of 35 - 40%. Left ventricle size is normal. Normal wall thickness. Normal wall motion. Normal diastolic function. Right Ventricle: Right ventricle is mildly dilated. Aortic Valve: Mildly thickened cusps. Mildly calcified cusps. 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 Tricuspid Valve: Mild to moderate regurgitation. Image quality is technically difficult. Technically difficult study, technically difficult study due to patient's body habitus and procedure performed with the patient in a supine position. Left Ventricle Moderately reduced left ventricular systolic function with a visually estimated EF of 35 - 40%. Left ventricle size is normal. Normal wall thickness. Normal wall motion. Normal diastolic function. Right Ventricle Right ventricle is mildly dilated. Normal systolic function. Left Atrium Left atrium size is normal. Right Atrium Right atrium size is normal. IVC/SVC IVC diameter is less than or equal to 21 mm and decreases greater than 50% during inspiration; therefore the estimated right atrial pressure is normal (~3 mmHg). IVC size is normal. 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 Mild regurgitation. No stenosis noted. Tricuspid Valve Valve structure is normal. Mild to moderate regurgitation. No stenosis noted. Aortic Valve Mildly thickened cusps. Mildly calcified cusps. No regurgitation. No stenosis. Pulmonic Valve The pulmonic valve visualization is suboptimal but appears to be functioning normally. Physiologically normal regurgitation. No stenosis noted. Ascending Aorta Normal sized aortic root and ascending aorta. Pericardium No pericardial effusion. Study Details Image quality: technically difficult. The view(s) performed were parasternal, apical, subcostal andsuprasternal. Technically difficult study, technically difficult study due to patient's body habitus, procedure performed with the patient in a supine position, color flow Doppler was performed and pulse wave and/or continuous wave Doppler was performed. No contrast was given. Comparison Study There is a prior study available for comparison. Prior study date: 01/10/2022. Previous echo report scanned into cart under care everywhere.[facility] Radiology Study observation (narrative)[facility] Sec[employer] SportsEKG Rhythm Strip on 44-50-4664OD 93PACEARTBon Secours Minggl HealthHR 100PACEARTBon Secours Minggl HealthHR 80PACEARTBon Secours Nonaboxy HealthGFR, ESTIMATEDon 09-10-1616NWR/1.73 sq M.predicted MDRD (S/P/Bld) [Vol rate/Area]55 mL/min/{1.73_m2}Abnormal>60Bon Sec[facility] SportsComment on above:Pediatric calculator link https://www.kidney.org/professionals/kdoqi/gfr_calculatorped Effective Dec 07, 2021 These results are not intended for use in patients <18 years of age. eGFR results are calculated without a race factor using the 2020 CKD-EPI equation. Careful clinical correlation is recommended, particularly when comparing to results calculated using previous equations. The CKD-EPI equation is less accurate in patients with extremes of muscle mass, extra-renal metabolism of creatinine, excessive creatine ingestion, or following therapy that affects renal tubular secretion. Performed at [facility] [address] [place] [address] Result Comment: Pediatric calculator link https://www.kidney.org/professionals/kdoqi/gfr_calculatorped Effective Dec 07, 2021 These results are not intended for use in patients <18 years of age. eGFR results are calculated without a race factor using the 2020 CKD-EPI equation. Careful clinical correlation is recommended, particularly when comparing to results calculated using previous equations. The CKD-EPI equation is less accurate in patients with extremes of muscle mass, extra-renal metabolism of creatinine, excessive creatine ingestion, or following therapy that affects renal tubular secretion.Performed By: #### REINA CORRALES, JE #### [address] [address]XPF,HCTon 20-31-3065Pyhqrjfrny (Bld) [Volume fraction]25.3 %Low 42.0-52.0[facility] on above:Performed at [address] [address]Iadkxtjhm By: #### REINA CORRALES HH #### [address] [address]Wwaudxlpsw (Bld) [Mass/Vol]8.0 g/dLLow14.0-18.0Bon [facility] on above:Performed By: #### REINA CORRALES, #### [address] [address]Wbrlcmdxrm and Hematocrit panel (Bld)on 15-61-5278Hnfuxeymcmzqgc and review of laboratory resultsAbnormChildren's Hospital of Richmond at VCUNo Panel Informationon 53-44-2183Cshlatsqensxwo and review of laboratory resultsAbnormalFauquier Health SystemANION GAPon 31-53-1910Disaa gap [Moles/Vol]11.0 mmol/LNormal8.0-16.0Medical Center HospitalComment on above:Result Comment: ANION GAP = Sodium -(Chloride + CO2)Performed By: #### REINA CORRALES, JE #### [address] [address]Vzhtz Gapon 62-67-6149Zmzan gap [Moles/Vol]11.0 mmol/L8.0 - 16.0 meq/LBon Secours Mercy HealthComment on above:ANION GAP = Sodium -(Chloride + CO2) Performed at [facility] [address] [place] [address] BASIC METABOL PANELon 07-16-3732Onacdod [Mass/Vol]8.5 mg/dLNormal8.5-10.5SUniversity HospitalComment on above:Performed By: #### GREG CORRALES3, #### [facility] [address] [place] [address]Tcfhjftw [Moles/Vol]101 mmol/AQrndme87-429DofyiMedical Center HospitalComment on above:Performed By: #### GREG CORRALES3, HH #### [facility] [address] [place] [address]YK3 [Moles/Vol]22 mmol/LMbl73-40UebjzMedical Center HospitalComment on above:Performed By: #### GREG CORRALES3, #### [facility] [address] [place] [address]Kpxbwbelvf [Mass/Vol]0.9 mg/dLNormal0.4-1.2SUniversity HospitalComment on above:Performed By: #### REINA CORRALES, HH #### [facility] [address] [place] [address]Bwgufer [Mass/Vol]165 mg/fXUshg79-179DuwywMedical Center Hospital Comment on above:Performed By: #### GREG CORRALES3, #### [facility] [address] [place] [address] 76[address]Ungonxmmx [Moles/Vol]4.2 mmol/LNormal3.5-5.2SUniversity HospitalComment on above:Performed By: #### GREG CORRALES3, HH #### [facility] [address] [place] [address] 13147Wggfmq [Moles/Vol]134 mmol/CZkt803-777WnmxqMedical Center Hospital Comment on above:Performed By: #### GREG CORRALES3, HH #### [facility] [address] [place] [address] 912[address]Zrwh nitrogen [Mass/Vol]18 mg/dLNormal7-22SaNorthwest Texas Healthcare SystemComment on above:Performed By: #### NTBNP, TSH3, #### [facility] [address] [place] [address]Iibam metabolic 2000 panelon 39-93-7974Cjlacpb [Mass/Vol]8.5 mg/dL 8.5 - 10.5 mg/dLBon [facility] HospitalComment on above:Performed at [facility] [address] [place] [address] 88869Bxrnulud [Moles/Vol]101 mmol/L98 - 111 meq/LBon [facility] HospitalCO2 [Moles/Vol]22 mmol/LLow23 - 33 meq/LBon [facility] HospitalCreatinine [Mass/Vol]0.9 mg/dL0.4 - 1.2 mg/dLBon [facility] HospitalGlucose [Mass/Vol]165 mg/gSTouv72 - 108 mg/dLBon [facility] HospitalInterpretation and review of laboratory resultsAbnormalBon [facility] HospitalPotassium [Moles/Vol]4.2 mmol/L3.5 - 5.2 meq/LBon [facility] Sodium [Moles/Vol]134 mmol/VQii958 - 145 meq/LBon [facility] HospitalUrea nitrogen [Mass/Vol]18 mg/dL7 - 22 mg/dLBon [facility] Rehabilitation HospitalBrain Natriuretic Peptideon 89-96-3617Zdudulpyfhg peptide.B prohormone N-Terminal IA [Mass/Vol] 4637.0 pg/mLHigh0.0 - 449.0 pg/mLBon [facility] HospitalComment on above: Performed at [facility] [address] [place] [address]WAB Rhythm Stripon 36-29-1071DNQDGKEYoc [facility] HospitalHR 120PACEARTBon [facility] Rehabilitation HospitalPACEARTSmyth County Community HospitalGFR, ESTIMATEDon 01-88-8310SEN/1.73 sq M.predicted MDRD (S/P/Bld) [Vol rate/Area]85 mL/min/{1.73_m2}Normal>60Bon [facility] HospitalComment on above:Pediatric calculator link https://www.kidney.org/professionals/kdoqi/gfr_calculatorped Effective Dec 07, 2021 These results are not intended for use in patients <18 years of age. eGFR results are calculated without a race factor using the 2020 CKD-EPI equation. Careful clinical correlation is recommended, particularly when comparing to results calculated using previous equations. The CKD-EPI equation is less accurate in patients with extremes of muscle mass, extra-renal metabolism of creatinine, excessive creatine ingestion, or following therapy that affects renal tubular secretion[place] [address] Result Comment: Pediatric calculator link https://www.kidney.org/professionals/kdoqi/gfr_calculatorped Effective Dec 07, 2021 These results are not intended for use in patients <18 years of age. eGFR results are calculated without a race factor using the 2020 CKD-EPI equation. Careful clinical correlation is recommended, particularly when comparing to results calculated using previous equations. The CKD-EPI equation is less accurate in patients with extremes of muscle mass, extra-renal metabolism of creatinine, excessive creatine ingestion, or following therapy that affects renal tubular secretion.Performed By: #### SAVANNA, TSH3, #### [address] [address]FRPADQT POCon 12-42-8847Jfndqqt [Mass/Vol]155 mg/gTIalt06-452Puq [facility] on above:Performed at [address] [address]Sawezqrxv By: #### POCGL #### [address] [address]Rydyrai Auto test strip (Bld) [Mass/Vol]on 02-22-2024 Interpretation and review of laboratory resultsAbnormalBath Community HospitalHGB,HCTon 88-58-4422Ohxnkkirjg (Bld) [Volume fraction] 28.7 %Low42.0-52.0[facility] on above:Performed at [address] [address]Auqbplvls By: #### NTTRINIDADP, TSH3, #### [address] [address]Arjyllfgrh (Bld) [Mass/Vol]9.1 g/dLLow14.0-18.0[facility] HospitalComment on above:Performed By: #### REINA CORRALES, JE #### [facility] [address] [place] [address] 16420Njzmxluorx (Bld) [Volume fraction]30.0 %Low42.0-52.0Medical Center HospitalComment on above:Performed By: #### REINA CORRALES, JE #### [address] [address]Usagcuvfjo (Bld) [Mass/Vol]9.5 g/dLLow14.0-18.0Medical Center HospitalComment on above:Performed By: #### REINA CORRALES, #### [address] [address]Oxmrwkzaxu and Hematocrit panel (Bld)on 65-55-4623Ucwfjuftajrvdk and review of laboratory resultsAbnormChildren's Hospital of Richmond at VCUHematocrit (Bld) [Volume fraction]30.0 %Low42.0 - 52.0 %Bon [facility] HospitalComment on above:Performed at [facility] [address] [place] [address]Brxenncbda (Bld) [Mass/Vol]9.5 g/dLLowSmyth County Community Hospital Interpretation and review of laboratory resultsAbnoMarshall County Healthcare CenterNT PRO-B NATRIURETIC PEPTIDEon 93-44-7856Nqhuyswsgqm peptide B (Bld) [Mass/Vol]4637.0 pg/mLHigh0.0-449.0Medical Center Hospital Comment on above:Performed By: #### REINA CORRALES, #### [address] [address]Nqwtcjelunp peptide.B prohormone N-Terminal [place] [Mass/Vol]on 70-61-0331Dagfqqogujwzez and review of laboratory resultsAbnoStoneSprings Hospital CenterNo Panel Informationon 10-57-0300Nzp [facility] CenterTSH DL <= 0.005 mIU/L Qnon 18-48-7809PWL Qn0.678 m[IU]/LBon [facility] HospitalComsurgeons choice medical center on above:Performed at [facility] [address] [place] [address] 28[address]YNK THIRD GENERATIONon [id number] THIRD GENERATION0.678 uIU/mLNormal0.400-4.200SaNorthwest Texas Healthcare SystemComment on above:Performed By: #### REINA CORRALES, #### [facility] [address] [place] [address] [id number] POCon 34-92-5142Qmaajyt [Mass/Vol]185 mg/aKFyve48-879Brf [facility] HospitalComsurgeons choice medical [facility] on above:Performed at [facility] [address] [place] [address] 96073Jxpuzmuac By: #### REINA CORRALES, JE #### [facility] [address] [place] [address] 38233Slhlzfa Auto test strip (Bld) [Mass/Vol]on 02-21-2024 Interpretation and review of laboratory resultsAbnormalBath Community HospitalHGB,HCTon 83-42-7677Yptmqchagz (Bld) [Volume fraction] 32.1 %Low42.0-52.0[facility] on above:Performed at [facility] [address] [place] [address] [phone] By: #### REINA CORRALES, #### [facility] [address] [place] [address] 81944Qntarjngig (Bld) [Mass/Vol]10.3 g/dLLow14.0-18.0[facility] on above:Performed By: #### REINA CORRALES, #### [facility] [address] [place] [address] [phone] and Hematocrit panel (Bld)on 77-80-2064Rcdgcovusmjeny and review of laboratory resultsAbnormalBon [facility] HealthTYPE AND SCREENon 12-12-2656ZZSSZiz [facility] HospitalRh Factor PositiveBon [facility] HealthTYPE AND SCREEN CAPTURE on 46-51-8948KEMWBAAI FAZAL CAPTURENegativeNormalSaint Caryn's Medical Center Comment on above:Performed By: #### POCGL #### [facility] [address] [place], [place] [address]KU CAPTURE (2 D CLONES)PositiveQuail Creek Surgical Hospital Comment on above:Performed By: #### POCGL #### [facility] [address] [place], [place] [address]HBO CAPTUREONoMedical Arts HospitalComment on above: Performed By: #### POCGL #### [facility] [address] [place] [address] [phone] LUMBAR SPINE 1 VWon 42-88-5764RP LUMBAR SPINE 1 VWMOBILE LATERAL LUMBAR SPINE: CLINICAL INFORMATION: surgery COMPARISON: No prior study. TECHNIQUE: A single lateral mobile view of the lumbar spine was obtained For localization purposes. FINDINGS: 2 spinal needles are present posteriorly, directed at the L1 and L2 levels. IMPRESSION: Intraoperative appearance of the lumbar spine. This report has been created using voice recognition software. It may contain minor errors which are inherent in voice recognition technology. Electronically signed by Dr. Partha Victor Interpreted by: Partha Victor MD Signed by: Partha Victor MD 02/21/24 Final resultQuail Creek Surgical HospitalXR Lumbar spine Single viewon 09-26-8685Hcktrqhgrvtgbc appearance of the lumbar spine. This report has been created using voice recognition software. It may contain minor errors which are inherent in voice recognition technology. Electronically signed by Dr. Partha VictorSARAI SHIP[facility] CENTERB CONSOLIDATEDMOBILTosha LATERAL LUMBAR SPINE: CLINICAL INFORMATION: surgery COMPARISON: No prior study. TECHNIQUE: A single lateral mobile view of the lumbar spine was obtained For localization purposes. FINDINGS: 2 spinal needles are present posteriorly, directed at the L1 and L2 levels. [facility] ROBERT VALEPartha ball MD - 02/21/2024 MOBILE LATERAL LUMBAR SPINE: CLINICAL INFORMATION: surgery COMPARISON: No prior study. TECHNIQUE: A single lateral mobile view of the lumbar spine was obtained For localization purposes. FINDINGS: 2 spinal needles are present posteriorly, directed at the L1 and L2 levels. IMPRESSION: Intraoperative appearance of the lumbar spine. This report has been created using voice recognition software. It may contain minor errors which are inherent in voice recognition technology. Electronically signed by Dr. Partha Cabrera [facility] HospitalRadiology Study observation (narrative)[facility]gl [facility] CampusXR Lumbar spine Single viewOrdered By: Partha Victor on 02-73-0264Bfd [facility] Minggl [facility] Work Phone: ecg 12 Leadon 43-68-5016Naolcp fibrillation, rightward axis, low voltage, PVCs, nonspecific T wave abnormality, abnormal ECGCPACSKindred Hospital Dayton Work Phone: activated partial thromboplastin time (aPTT) in platelet poor plasma by coagulation aon 55-64-5579yRUI Coag (PPP) [Time] Activated partial thromboplastin time (aPTT) in platelet poor plasma by coagulation aHigh22.3-36.2FJoint Township District Memorial HospitalBasophils Auto (Bld) [#/Vol]on 98-56-9430Popjxcbhi (Bld) [#/Vol]Automated basophil count0.0-0.1 [place] [facility] HospitalBasophils/100 WBC Auto (Bld)on 02-14-2024 Basophils/100 WBC (Bld)Automated basophil %0.2-2.0[place] [facility] HospitalEosinophils/100 WBC Auto (Bld)on 69-52-8347Okqquyzpkjc/100 WBC (Bld) Automated eosinophil %0.9-7.0[place] [facility] HospitalErythrocyte distribution width Auto (RBC) [Ratio]on 19-23-3472Lxfqzzvmekl distribution width (RBC) [Ratio]Erythrocyte distribution width [Ratio] by Automated count11.0-15.0 [place] [facility] HospitalEstimated glomerular filtration rate (GFR) non- Americanon 12-59-0681LPO/1.73 sq M.predicted among non-blacks MDRD (S/P/Bld) [Vol rate/Area]Estimated glomerular filtration rate (GFR) non- AmericanLow>=60 mL/min/1.73m 2FJoint Township District Memorial HospitalHematocrit Auto (Bld) [Volume fraction]on 95-44-0592Urvqrumvua (Bld) [Volume fraction]Hematocrit [Volume Fraction] of Blood by Automated tpyfuPyx66.0-54.0[place] [facility] HospitalHemoglobin [Mass/volume] in Bloodon 16-36-7893Ytzrkawhox (Bld) [Mass/Vol]Hemoglobin [Mass/volume] in GbnscCvv46.0-18.0[place] HospitalINR in Platelet poor plasma by Coagulation assayon 33-82-0177YIO Coag (PPP) [Relative time]INR in Platelet poor plasma by Coagulation assay [place] [facility] HospitalComment on above:DESIRED INR:2.0-3.0 CONDITIONS NOT LISTED BELOW2.5-3.5 FOR PROSTHETIC HEART VALVE REPLACEMENT2.5-3.5 RECURRENT THROMBOSISLaboratory - Chemistry and Chemistry - challengeon 43-34-4140Npgwpzc [Mass/Vol]9.2 mg/dL8.5-10.1FJoint Township District Memorial HospitalChloride [Moles/Vol] 108 mmol/ZLpxj68-508XqfgceywnSal[place] City HospitalCO2 [Moles/Vol]28.1 mmol/L 21.0-32.0[place] [facility] HospitalCreatinine [Mass/Vol]1.47 mg/dLHigh 0.70-1.30[place] [facility] HospitalGFR/1.73 sq M.predicted MDRD (S/P/Bld) [Vol rate/Area]56 mL/min/{1.73_m2}Low>=60 mL/min/1.73m 2FJoint Township District Memorial HospitalGlucose [Mass/Vol]101 mg/sQ43-981QunesqnkkSal[place] City Hospital Potassium [Moles/Vol]4.2 mmol/L3.5-5.1FUniversity Hospitals Elyria Medical Centerodium [Moles/Vol]144 mmol/K456-311WyburawwfSal[place] City HospitalUrea nitrogen [Mass/Vol]25.0 mg/dLHigh7.0-18.0[place] HospitalUrea nitrogen/Creatinine [Mass ratio]17.0 mg/mgSal[place] City Hospital Laboratory - Hematology and Cell countson 24-67-0888Pkbpqucd granulocytes/100 WBC (Bld)0.2 %0.0-0.5FJoint Township District Memorial HospitalLeukocytes [#/volume] corrected for nucleated erythrocytes in Blood by Automated counon 34-28-5991WAS corrected for nucl RBC Auto (Bld) [#/Vol]Leukocytes [#/volume] corrected for nucleated erythrocytes in Blood by Automated coun4.0-11.0[place] [facility] HospitalLymphocytes Auto (Bld) [#/Vol]on 68-75-7825Gskxptmmahl (Bld) [#/Vol]Lymphocytes [#/volume] in Blood by Automated countLow1.2-3.8[place] HospitalLymphocytes/100 WBC Auto (Bld)on 02-14-2024 Lymphocytes/100 WBC (Bld)Lymphocytes/100 leukocytes in Blood by Automated count Low20.5-60.0Wilson HealthH Auto (RBC) [Entitic mass]on 45-10-1248OAT (RBC) [Entitic mass]MCH [Entitic mass] by Automated countHigh 25.9-34.0Wilson HealthHC Auto (RBC) [Mass/Vol]on 41-01-6862MVSE (RBC) [Mass/Vol]MCHC [Mass/volume] by Automated count29.9-35.2 [place] [facility] HospitalMCV Auto (RBC) [Entitic vol]on 92-14-0209GVQ (RBC) [Entitic vol]MCV [Entitic volume] by Automated pjkadAirq47.0-94.0[place] HospitalMonocytes Auto (Bld) [#/Vol]on 29-85-6502Sfredbszt (Bld) [#/Vol]Automated blood monocyte count0.3-0.8[place] [facility] Monocytes/100 WBC Auto (Bld)on 92-33-2748Uwnbkwurs/100 WBC (Bld)Automated monocyte %1.7-12.0[place] [facility] HospitalNeutrophils Auto (Bld) [#/Vol]on 45-39-8488Eufludfeqnf (Bld) [#/Vol]Neutrophils [#/volume] in Blood by Automated count1.4-6.5FJoint Township District Memorial HospitalNeutrophils/100 WBC Auto (Bld)on 04-18-4876Xkswrceghau/100 WBC (Bld)Automated neutrophil %43.0-75.0 [place] [facility] HospitalNo Panel Informationon 00-53-6635Ljacmcnekgt # (Auto)0.2 10 3/uL0.0-0.7FJoint Township District Memorial HospitalImmature Granulocyte # (Auto)0.01 10 3/uL0.00-0.03[place] HospitalPlatelet mean volume Auto (Bld) [Entitic vol]on 58-93-0487Cytlusks mean volume (Bld) [Entitic vol] Platelet mean volume [Entitic volume] in Blood by Automated count9.5-13.5 [place] [facility] HospitalPlatelets Auto (Bld) [#/Vol]on 02-14-2024 Platelets (Bld) [#/Vol]Platelets [#/volume] in Blood by Automated dfvos699-045 [place] HospitalProthrombin time (PT)on 94-22-7460QP Coag (PPP) [Time]Prothrombin time (PT)High9.0-11.6FJoint Township District Memorial HospitalRBC Auto (Bld) [#/Vol]on 88-09-5611FID (Bld) [#/Vol]Erythrocytes [#/volume] in Blood by Automated countLow4.70-6.10[facility] Health System West Campuserum or plasma anion gap determinationon 71-67-1548Pvbwp gap [Moles/Vol]Serum or plasma anion gap determinationSalem City HospitalAlanine aminotransferase [Enzymatic activity/volume] in Serum or PlasmaOrdered By: Opal Ga on 24-86-9171WAE [Catalytic activity/Vol]Alanine aminotransferase [Enzymatic activity/volume] in Serum or Plasma7-[place] [facility] HospitalAlbumin [Mass/volume] in Serum or Plasma by Bromocresol green (BCG) dye binding metho Ordered By: Opal Ga on 01-07-9670Tpxifwl BCG dye [Mass/Vol]Albumin [Mass/volume] in Serum or Plasma by Bromocresol green (BCG) dye binding metho 3.5-5.7FJoint Township District Memorial HospitalAlkaline phosphatase [Enzymatic activity/volume] in Serum or PlasmaOrdered By: Opal Ga on 74-26-8576YEZ [Catalytic activity/Vol]Alkaline phosphatase [Enzymatic activity/volume] in Serum or EedisjNthd26-374FpncqyxavSal[place] City HospitalAspartate aminotransferase [Enzymatic activity/volume] in Serum or PlasmaOrdered By: Opal Ga on 89-24-1752EPC [Catalytic activity/Vol]Aspartate aminotransferase [Enzymatic activity/volume] in Serum or IcsgcoTamu29-13ZwvrseurqSal[place] City HospitalBasophils Auto (Bld) [#/Vol]Ordered By: Opal Ga on 12-30-2023 Basophils (Bld) [#/Vol]Automated basophil count0.0-0.2FJoint Township District Memorial HospitalBasophils/100 WBC Auto (Bld)Ordered By: Opal Ga on 12-30-2023 Basophils/100 WBC (Bld)Automated basophil %.[facility] [facility] Bilirubin.total [Mass/volume] in Serum or PlasmaOrdered By: Opal Ga on 44-76-2383Rossvphfs [Mass/Vol]Bilirubin.total [Mass/volume] in Serum or Plasma 0.3-1.0[place] HospitalCalcium [Mass/volume] in Serum or Plasma Ordered By: Opal Ga on 93-15-7745Cokonex [Mass/Vol]Calcium [Mass/volume] in Serum or Plasma8.6-10.3FJoint Township District Memorial HospitalCarbon dioxide, total [Moles/volume] in Serum or PlasmaOrdered By: Opal Ga on 42-79-8638AG1 [Moles/Vol]Carbon dioxide, total [Moles/volume] in Serum or Ffulcw54.0-31.0 [place] [facility] HospitalChloride [Moles/volume] in Serum or Plasma Ordered By: Opal Ga on 29-46-5776Edrmgjlx [Moles/Vol]Chloride [Moles/volume] in Serum or Dvitpc77-989OkegsjlzlSal[place] City HospitalCreatinine [Mass/volume] in Serum or PlasmaOrdered By: Opal Ga on 40-12-8869Sybmdteovl [Mass/Vol]Creatinine [Mass/volume] in Serum or Plasma0.70-1.30[place] HospitalEosinophils Auto (Bld) [#/Vol]Ordered By: Opal Ga on 16-88-0920Ipihzsifaon (Bld) [#/Vol]Automated eosinophil count0.0-0.45[place] [facility] HospitalEosinophils/100 WBC Auto (Bld)Ordered By: Opal Ga on 95-46-6519Fxdohbtjqrn/100 WBC (Bld)Automated eosinophil %.[place] [facility] HospitalErythrocyte distribution width Auto (RBC) [Ratio]Ordered By: Opal Ga on 67-88-6739Mvdhcuvmmgb distribution width (RBC) [Ratio]Erythrocyte distribution width [Ratio] by Automated count12.0-14.8[place] [facility] HospitalGlobulin Calc (S) [Mass/Vol]Ordered By: Opal Ga on 51-80-7288Mlrflwvb (S) [Mass/Vol]Serum globulin measurement by calculation (mass/volume)[place] [facility] HospitalGlucose [Mass/volume] in Serum or PlasmaOrdered By: Opal Ga on 46-52-0857Areudhs [Mass/Vol]Glucose [Mass/volume] in Serum or Plasma 70-100[place] [facility] HospitalComment on above:ADA recommended reference rangeRandom Glucose Reference Range is dependent on time and content of last meal. Glucose of more than 200 mg/dL in a nonstressed, ambulatory subject supports the diagnosisof Diabetes Mellitus.Hematocrit Auto (Bld) [Volume fraction]Ordered By: Opal Ga on 85-56-2234Blsyzrjfcd (Bld) [Volume fraction] Hematocrit [Volume Fraction] of Blood by Automated xmugvYtr49.8-50.0[place] HospitalHemoglobin [Mass/volume] in BloodOrdered By: Opal Ga on 24-20-6987Zbswiisefj (Bld) [Mass/Vol]Hemoglobin [Mass/volume] in BloodLow 13.0-17.0[place] [facility] HospitalLeukocytes [#/volume] corrected for nucleated erythrocytes in Blood by Automated counOrdered By: Opal Ga on 59-30-3665LMM corrected for nucl RBC Auto (Bld) [#/Vol]Leukocytes [#/volume] corrected for nucleated erythrocytes in Blood by Automated coun4.1-10.5FJoint Township District Memorial HospitalLymphocytes Auto (Bld) [#/Vol]Ordered By: Opal Ga on 48-05-6079Sptzrmrxuzy (Bld) [#/Vol]Lymphocytes [#/volume] in Blood by Automated countLow1.00-4.8[place] HospitalLymphocytes/100 WBC Auto (Bld) Ordered By: Opal Ga on 14-21-7005Tudpjxambth/100 WBC (Bld)Lymphocytes/100 leukocytes in Blood by Automated count.[place] [facility] HospitalMCH Auto (RBC) [Entitic mass]Ordered By: Opal Ga on 21-07-5795WOB (RBC) [Entitic mass]MCH [Entitic mass] by Automated dhxljEfbp89.5-35.2FJoint Township District Memorial HospitalMCHC Auto (RBC) [Mass/Vol]Ordered By: Opal Ga on 08-49-2921KUSU (RBC) [Mass/Vol]MCHC [Mass/volume] by Automated count32.5-35.6FJoint Township District Memorial HospitalMCV Auto (RBC) [Entitic vol]Ordered By: Opal Ga on 64-62-1057SGP (RBC) [Entitic vol]MCV [Entitic volume] by Automated countHigh 83.5-101[place] [facility] HospitalMonocytes Auto (Bld) [#/Vol]Ordered By: Opal Ga on 70-90-2529Hglmcdddr (Bld) [#/Vol]Automated blood monocyte count 0.0-0.8[place] HospitalMonocytes/100 WBC Auto (Bld)Ordered By: Opal Ga on 27-00-2528Qxirsuoxz/100 WBC (Bld)Automated monocyte %.[place] [facility] HospitalNeutrophils Auto (Bld) [#/Vol]Ordered By: Opal Ga on 05-92-8192Xgaqrsclssl (Bld) [#/Vol]Neutrophils [#/volume] in Blood by Automated count1.8-7.7FJoint Township District Memorial HospitalNeutrophils/100 WBC Auto (Bld) Ordered By: Opal Ga on 23-08-6142Qrzpcvaukzh/100 WBC (Bld)Automated neutrophil %.[place] [facility] HospitalNo Panel InformationOrdered By: Opal Ga on 58-29-3097Kqfoymohl GFR (CKD-EPI)> 60.0 mL/MinSalem City HospitalPharmacy Creatinine Clearance (ChemN/[facility] HospitalNucleated erythrocytes [Presence] in Blood by Automated countOrdered By: Opal Ga on 84-54-7956Vqcoxpyjb RBC Auto Ql (Bld)Nucleated erythrocytes [Presence] in Blood by Automated count0-0.5FJoint Township District Memorial Hospital Platelet mean volume Auto (Bld) [Entitic vol]Ordered By: Opal Ga on 77-42-8745Liolrxdj mean volume (Bld) [Entitic vol]Platelet mean volume [Entitic volume] in Blood by Automated count6.6-10.1FJoint Township District Memorial Hospital Platelets Auto (Bld) [#/Vol]Ordered By: Opal Ga on 23-71-6633Bwsrkkxfd (Bld) [#/Vol]Platelets [#/volume] in Blood by Automated heboq282-526LtsjsrilqSalem City HospitalPotassium [Moles/volume] in Serum or PlasmaOrdered By: Opal Ga on 91-89-4008Swvjuzbbb [Moles/Vol]Potassium [Moles/volume] in Serum or Plasma 3.5-5.1FJoint Township District Memorial HospitalProtein [Mass/volume] in Serum or Plasma Ordered By: Opal Ga on 75-35-3632Inhinkd [Mass/Vol]Protein [Mass/volume] in Serum or PlasmaLow6.4-8.9[place] [facility] HospitalRBC Auto (Bld) [#/Vol] Ordered By: Opal Ga on 24-23-9593YWE (Bld) [#/Vol]Erythrocytes [#/volume] in Blood by Automated countLow3.90-5.60[facility] West Campuserum or plasma albumin/globulin mass ratioOrdered By: Opal Ga on 12-30-2023 Albumin/Globulin [Mass ratio]Serum or plasma albumin/globulin mass ratio [facility] West Campuserum or plasma anion gap determinationOrdered By: Opal Ga on 29-30-5046Mmogd gap [Moles/Vol]Serum or plasma anion gap determination6.0-15.0[facility] West Campusodium [Moles/volume] in Serum or PlasmaOrdered By: Opal Ga on 99-49-1346Sssawl [Moles/Vol]Sodium [Moles/volume] in Serum or Megfxk855-656EjadgwcqeSal[place] City Hospital Thyrotropin [Units/volume] in Serum or PlasmaOrdered By: Opal Ga on 16-40-7190XAP QnThyrotropin [Units/volume] in Serum or PlasmaLow0.45-5.33 [place] [facility] HospitalThyroxine (T4) free [Mass/volume] in Serum or PlasmaOrdered By: Opal Ga on 29-55-9797Fsru T4 [Mass/Vol]Thyroxine (T4) free [Mass/volume] in Serum or PlasmaHigh0.61-1.12[facility] [facility] Urea nitrogen [Mass/volume] in Serum or PlasmaOrdered By: Opal Ga on 05-84-4293Ksll nitrogen [Mass/Vol]Urea nitrogen [Mass/volume] in Serum or Plasma 09-28[place] [facility] HospitalWBC Auto (Bld) [#/Vol]Ordered By: Opal Ga on 80-93-6087HBM (Bld) [#/Vol]Leukocytes [#/volume] in Blood by Automated count4.1-10.5FJoint Township District Memorial HospitalAlanine aminotransferase [Enzymatic activity/volume] in Serum or PlasmaOrdered By: Opal Ga on 17-53-8618ZEO [Catalytic activity/Vol]18 U/L7-52[place] [facility] HospitalAlbumin [Mass/volume] in Serum or Plasma by Bromocresol green (BCG) dye binding methoOrdered By: Opal Ga on 51-46-3489Dglyidu BCG dye [Mass/Vol]4.1 g/dL3.5-5.7FJoint Township District Memorial HospitalAlkaline phosphatase [Enzymatic activity/volume] in Serum or PlasmaOrdered By: Opal Ga on 68-61-7565JCX [Catalytic activity/Vol]117 U/KRkvb80-613PxfktksxcSal[place] City Hospital Aspartate aminotransferase [Enzymatic activity/volume] in Serum or PlasmaOrdered By: Opal Ga on 43-23-4852GUT [Catalytic activity/Vol]29 U/V55-27TqblrxqzuSalem City HospitalBasophils Auto (Bld) [#/Vol]Ordered By: Opal Ga on 61-68-5425Hgmumyxbi (Bld) [#/Vol]0.0 10*3/uL0.0-0.2FJoint Township District Memorial HospitalBasophils/100 WBC Auto (Bld)Ordered By: Opal Ga on 09-12-2023 Basophils/100 WBC (Bld)0.8 %.[place] [facility] HospitalBilirubin.total [Mass/volume] in Serum or PlasmaOrdered By: Opal Ga on 09-97-3676Eldbebxat [Mass/Vol]0.7 mg/dL0.3-1.0[place] [facility] HospitalCalcium [Mass/volume] in Serum or PlasmaOrdered By: Opal Ga on 68-39-5709Jawxeha [Mass/Vol]9.7 mg/dL8.6-10.3FJoint Township District Memorial HospitalCarbon dioxide, total [Moles/volume] in Serum or PlasmaOrdered By: Opal Ga on 64-79-3144MY7 [Moles/Vol]30.3 mmol/L21.0-31.0[place] [facility] HospitalChloride [Moles/volume] in Serum or PlasmaOrdered By: Opal Ga on 14-29-3363Rmpbhouf [Moles/Vol]105 mmol/I22-436ZrkhexyihSalem City HospitalCholesterol [Mass/volume] in Serum or PlasmaOrdered By: Opal Ga on 19-92-8064Wlclbyzuimz [Mass/Vol]135 mg/nSQgf563-911DbqsmjdhfSalem City HospitalComment on above: Chol less than 200 mg/dl low riskChol 201-239 mg/dl borderline riskChol 240 mg/dl and greater high riskCholesterol in LDL Calc [Mass/Vol]Ordered By: Opal Ga on 30-96-4497Ywkayrmwwre in LDL [Mass/Vol]43 mg/dL0-100[place] [facility] HospitalComment on above:LDL ATP III CLASSIFICATIONLDL less than 100 mg/dL OptimalLDL 100-129 mg/dL Near or above fadjkrwZDL772-428 mg/dL Borderline highLDL 160-189 mg/dL HighLDL greater than 189 mg/dL Very highCholesterol in VLDL Calc [Mass/Vol]Ordered By: Opal Ga on 85-67-3046Uqppmdsfroz in VLDL [Mass/Vol]10 mg/dLSalem City HospitalCreatinine [Mass/volume] in Serum or PlasmaOrdered By: Opal Ga on 05-88-4077Mswbmrewtl [Mass/Vol]1.19 mg/dL0.70-1.30[place] [facility] HospitalEosinophils Auto (Bld) [#/Vol] Ordered By: Opal Ga on 16-49-8641Riwczgbhjnz (Bld) [#/Vol]0.5 10*3/uLHigh 0.0-0.45[place] [facility] HospitalEosinophils/100 WBC Auto (Bld)Ordered By: Opal Ga on 17-09-9731Smaodbfchym/100 WBC (Bld)10.7 %.[place] [facility] HospitalErythrocyte distribution width Auto (RBC) [Ratio]Ordered By: Opal Ga on 64-09-5785Lsvgvrzuqhq distribution width (RBC) [Ratio]13.9 %12.0-14.8 [place] [facility] HospitalGlobulin Calc (S) [Mass/Vol]Ordered By: Opal Ga on 85-78-1867Jdirbaqh (S) [Mass/Vol]2.3 g/dLSalem City HospitalGlucose [Mass/volume] in Serum or PlasmaOrdered By: Opal Ga on 65-16-4904Zznjxet [Mass/Vol]85 mg/qD26-080JwtxmhuhfSal[place] City Hospital Comment on above:ADA recommended reference rangeRandom Glucose Reference Range is dependent on time and content of last meal. Glucose of more than 200 mg/dL in a nonstressed, ambulatory subject supports the diagnosisof Diabetes Mellitus. Hematocrit Auto (Bld) [Volume fraction]Ordered By: Opal Ga on 09-12-2023 Hematocrit (Bld) [Volume fraction]39.6 %38.8-50.0[place] [facility] HospitalHemoglobin [Mass/volume] in BloodOrdered By: Opal Ga on 09-12-2023 Hemoglobin (Bld) [Mass/Vol]13.1 g/dL13.0-17.0[facility] Leukocytes [#/volume] corrected for nucleated erythrocytes in Blood by Automated counOrdered By: Opal Ga on 31-87-6598KYK corrected for nucl RBC Auto (Bld) [#/Vol]5.0 10*3/uL4.1-10.5FJoint Township District Memorial HospitalLymphocytes Auto (Bld) [#/Vol]Ordered By: Opal Ga on 57-59-3600Bwcteudyijp (Bld) [#/Vol]1.4 10*3/uL1.00-4.8[place] [facility] HospitalLymphocytes/100 WBC Auto (Bld) Ordered By: Opal Ga on 01-11-0022Utaqhbfqjeo/100 WBC (Bld)27.8 %.[facility] HealthH Auto (RBC) [Entitic mass]Ordered By: Opal Ga on 64-59-0372WNW (RBC) [Entitic mass]35.2 pg27.5-35.2FJoint Township District Memorial HospitalMCHC Auto (RBC) [Mass/Vol]Ordered By: Opal Ga on 79-24-0987WPCY (RBC) [Mass/Vol]33.1 g/dL32.5-35.6FJoint Township District Memorial HospitalMCV Auto (RBC) [Entitic vol]Ordered By: Opal Ga on 35-74-4116FRU (RBC) [Entitic vol]106.3 fL High83.5-101[facility] [facility] HospitalMonocytes Auto (Bld) [#/Vol]Ordered By: Opal Ga on 25-67-2203Cvhuaggfm (Bld) [#/Vol]0.5 10*3/uL0.0-0.8[place] [facility] HospitalMonocytes/100 WBC Auto (Bld)Ordered By: Opal Ga on 24-93-4573Cfobxduqt/100 WBC (Bld)9.7 %.[facility] Neutrophils Auto (Bld) [#/Vol]Ordered By: Opal Ga on 57-47-2353Qjaoacpyjwz (Bld) [#/Vol]2.6 10*3/uL1.8-7.7FJoint Township District Memorial HospitalNeutrophils/100 WBC Auto (Bld)Ordered By: Opal Ga on 91-47-5976Yibqgytjthd/100 WBC (Bld)51.0 %.[facility] [facility] HospitalNo Panel InformationOrdered By: Opal Ga on 15-49-6303Nnhqrjhxs GFR (CKD-EPI)> 60.0 mL/MinSalem City Hospital Pharmacy Creatinine Clearance (ChemN/AFJoint Township District Memorial HospitalNucleated erythrocytes [Presence] in Blood by Automated countOrdered By: Opal Ga on 87-66-8203Tdjyyxime RBC Auto Ql (Bld)0.1 /100{WBC}0-0.5FJoint Township District Memorial HospitalPlatelet mean volume Auto (Bld) [Entitic vol]Ordered By: Opal Ga on 28-47-7844Egguxurv mean volume (Bld) [Entitic vol]8.6 fL6.6-10.1 [place] [facility] HospitalPlatelets Auto (Bld) [#/Vol]Ordered By: Opal Ga on 76-23-6011Uwyvbobsm (Bld) [#/Vol]163 10*3/jR245-913QksxhjjrpSalem City HospitalPotassium [Moles/volume] in Serum or PlasmaOrdered By: Opal Ga on 16-62-0873Uvjsqdywq [Moles/Vol]4.0 mmol/L3.5-5.1FJoint Township District Memorial HospitalProstate specific Ag [Mass/volume] in Serum or PlasmaOrdered By: Opal Ga on 69-88-6834Bcvluqwg specific Ag [Mass/Vol]2.430 ng/mL0.000-4.000[facility] [facility] HospitalComment on above:Serial tumor marker results determined by assays using different manufacturers or methods may not be comparable.[facility] sign painter apprentice and method:[employer] DXI, CHEMILUMINESCENT IMMUNOASSAY.Protein [Mass/volume] in Serum or PlasmaOrdered By: Opal Ga on 99-07-4429Xlpwplk [Mass/Vol]6.4 g/dL6.4-8.9[facility] [facility] HospitalRBC Auto (Bld) [#/Vol]Ordered By: Opal Ga on 91-81-1635UAK (Bld) [#/Vol]3.73 10*6/uLLow3.90-5.60[facility] West Campuserum or plasma albumin/globulin mass ratioOrdered By: Opal Ga on 09-12-2023 Albumin/Globulin [Mass ratio]1.8 {ratio}[facility] Campuserum or plasma anion gap determinationOrdered By: Opal Ga on 24-38-8582Ukxfj gap [Moles/Vol]9.7 mmol/L6.0-15.0[facility] Campuserum or plasma high density lipoprotein (HDL) cholesterol measurementOrdered By: Opal Ga on 73-40-1776Zikkkezdaqq in HDL [Mass/Vol]81 mg/aV86-70WjvnlucgdSalem City HospitalComment on above:HDL CHOL ATP-III CLASSIFICATION Cardiovascular RiskHDL > or equal to 60 mg/dL LOWHDL < 40 mg/dL HIGHSerum or plasma total cholesterol/high density lipoprotein (HDL) cholesterol mass ratOrdered By: Opal Ga on 95-47-2555Qgfehoricsa.total/Cholesterol in HDL [Mass ratio]1.7 {ratio} <5.0[facility] Campusodium [Moles/volume] in Serum or Plasma Ordered By: Opal Ga on 54-24-7712Pfdspu [Moles/Vol]141 mmol/R084-648LwrahhcuxSalem City HospitalThyrotropin [Units/volume] in Serum or PlasmaOrdered By: Opal Ga on 48-74-4638FYQ Qn0.19 m[IU]/LLow0.45-5.33[facility] HospitalThyroxine (T4) free [Mass/volume] in Serum or PlasmaOrdered By: Opal Ga on 03-43-8911Hkht T4 [Mass/Vol]1.24 ng/dLHigh0.61-1.12[facility] HospitalTriglyceride [Mass/volume] in Serum or PlasmaOrdered By: Opal Ga on 77-93-2698Kpbhwjijjntb [Mass/Vol]53 mg/dL0-149[facility] HospitalComment on above:TRIG ATP III CLASSIFICATIONTRIG less than 150 mg/dL NormalTRIG 150-199 mg/dL Borderline highTRIG 200-500 mg/dL High TRIG greater than 500 mg/dL Very highStandard traceable to the Center for Disease Co nrtrol and Prevention (CDC) test method.Urea nitrogen [Mass/volume] in Serum or PlasmaOrdered By: Opal Ga on 69-02-1499Qlau nitrogen [Mass/Vol]26 mg/dLHigh 7-25Sal[facility] HospitalWBC Auto (Bld) [#/Vol]Ordered By: Opal Ga on 18-45-4731HXA (Bld) [#/Vol]5.0 10*3/uL4.1-10.5FJoint Township District Memorial HospitalAlanine aminotransferase [Enzymatic activity/volume] in Serum or Plasma Ordered By: Bhupinder Mcintyre on 35-45-4113VUF [Catalytic activity/Vol]37 U/L7-52 [facility] HospitalAspartate aminotransferase [Enzymatic activity/volume] in Serum or PlasmaOrdered By: Bhupinder Mcintyre on 45-80-6867CTB [Catalytic activity/Vol]66 U/EShnf56-70QjtpuqxyvSalem City HospitalCalcium [Mass/volume] in Serum or PlasmaOrdered By: Bhupinder Mcintyre on 36-76-1216Ohzpqui [Mass/Vol]9.8 mg/dL8.6-10.3FJoint Township District Memorial HospitalCarbon dioxide, total [Moles/volume] in Serum or PlasmaOrdered By: Bhupinder Mcintyre on 65-53-9659GE8 [Moles/Vol]27.1 mmol/L21.0-31.0[facility] HospitalChloride [Moles/volume] in Serum or PlasmaOrdered By: Bhupinder Mcintyre on 35-88-9034Dvijclnw [Moles/Vol]104 mmol/P95-863IswfpbdypSalem City HospitalCholesterol [Mass/volume] in Serum or PlasmaOrdered By: Bhupinder Mcintyre on 97-64-6269Xnmywapnoxf [Mass/Vol]152 mg/wB647-058UsiiekmtzSalem City HospitalComment on above:Chol less than 200 mg/dl low riskChol 201-239 mg/dl borderline riskChol 240 mg/dl and greater high riskCholesterol in LDL Calc [Mass/Vol]Ordered By: Bhupinder Mcintyre on 93-64-2459Fzccarbwlvn in LDL [Mass/Vol]49 mg/dL0-100[facility] HospitalComment on above:LDL ATP III CLASSIFICATIONLDL less than 100 mg/dL OptimalLDL 100-129 mg/dL Near or above qhrusbbFYE902-151 mg/dL Borderline highLDL 160-189 mg/dL HighLDL greater than 189 mg/dL Very highCholesterol in VLDL Calc [Mass/Vol]Ordered By: Bhupinder Mcintyre on 59-45-0620Woptmlahhmo in VLDL [Mass/Vol]17 mg/dLSalem City HospitalCreatinine [Mass/volume] in Serum or PlasmaOrdered By: Bhupinder Mcintyre on 74-87-8642Qredpvpwcs [Mass/Vol]1.14 mg/dL0.70-1.30[facility] HospitalGlucose [Mass/volume] in Serum or PlasmaOrdered By: Bhupinder Mcintyre on 05-65-9707Tplysxm [Mass/Vol]83 mg/eS81-038 [facility] HospitalComment on above:ADA recommended reference rangeRandom Glucose Reference Range is dependent on time and content of last meal. Glucose of more than 200 mg/dL in a nonstressed, ambulatory subject supports the diagnosisof Diabetes Mellitus.Natriuretic peptide B [Mass/Vol] Ordered By: Bhupinder Mcintyre on 15-06-0614Wpabmybvymp peptide B (Bld) [Mass/Vol]347.0 pg/mLHigh5-100[facility] HospitalNo Panel InformationOrdered By: Bhupinder Mcintyre on 73-06-4109Vxxrruxft GFR (CKD-EPI)> 60.0 mL/MinSalem City HospitalPharmacy Creatinine Clearance (ChemN/[facility] HospitalPotassium [Moles/volume] in Serum or PlasmaOrdered By: Bhupinder Mcintyre on 24-36-7018Ezmoisixa [Moles/Vol]4.2 mmol/L3.5-5.1FUniversity Hospitals Elyria Medical Centererum or plasma anion gap determinationOrdered By: Bhupinder Mcintyre on 07-19-2023 Anion gap [Moles/Vol]14.1 mmol/L6.0-15.0[facility] West Campuserum or plasma high density lipoprotein (HDL) cholesterol measurementOrdered By: Bhupinder Mcintyre on 72-13-6058Gvkkagsadpm in HDL [Mass/Vol]86 mg/bX06-57WiglmbysuSalem City HospitalComment on above:HDL CHOL ATP-III CLASSIFICATION Cardiovascular RiskHDL > or equal to 60 mg/dL LOWHDL < 40 mg/dL HIGHSerum or plasma total cholesterol/high density lipoprotein (HDL) cholesterol mass rat Ordered By: Bhupinder Mcintyre on 02-22-4476Bvgzzoprebg.total/Cholesterol in HDL [Mass ratio]1.8 {ratio}<5.0[facility] Campusodium [Moles/volume] in Serum or PlasmaOrdered By: Bhupinder Mcintyre on 03-28-1159Metjjn [Moles/Vol]141 mmol/L 136-145Sal[facility] City HospitalTriglyceride [Mass/volume] in Serum or PlasmaOrdered By: Bhupinder Mcintyre on 23-06-1690Dzqtkveewgfn [Mass/Vol]85 mg/dL0-149 [facility] HospitalComment on above:TRIG ATP III CLASSIFICATIONTRIG less than 150 mg/dL NormalTRIG 150-199 mg/dL Borderline highTRIG 200-500 mg/dL High TRIG greater than 500 mg/dL Very highStandard traceable to the Center for Disease Conrtrol and Prevention (CDC) test method. Urea nitrogen [Mass/volume] in Serum or PlasmaOrdered By: Bhupinder Mcintyre on 05-72-2414Rbev nitrogen [Mass/Vol]22 mg/dL7-25[facility] Alanine aminotransferase [Enzymatic activity/volume] in Serum or PlasmaOrdered By: Opal Ga on 46-11-7467FUU [Catalytic activity/Vol]31 U/L7-52[facility] HospitalAlbumin [Mass/volume] in Serum or Plasma by Bromocresol green (BCG) dye binding methoOrdered By: Opal Ga on 27-33-8639Jvalewb BCG dye [Mass/Vol]4.1 g/dL3.5-5.7FJoint Township District Memorial HospitalAlkaline phosphatase [Enzymatic activity/volume] in Serum or PlasmaOrdered By: Opal Ga on 72-73-1391CTL [Catalytic activity/Vol]124 U/J27-992HqehleujlSalem City HospitalAspartate aminotransferase [Enzymatic activity/volume] in Serum or Plasma Ordered By: Opal aG on 69-25-0035KYW [Catalytic activity/Vol]47 U/L13-39 [facility] HospitalBasophils Auto (Bld) [#/Vol]Ordered By: Opal Ga on 97-03-8159Stopkhebe (Bld) [#/Vol]0.0 10*3/uL0.0-0.2FJoint Township District Memorial HospitalBasophils/100 WBC Auto (Bld)Ordered By: Opal Ga on 09-08-2022 Basophils/100 WBC (Bld)1.0 %.[facility] HospitalBilirubin.total [Mass/volume] in Serum or PlasmaOrdered By: Opal Ga on 50-08-8611Dqtgqabkv [Mass/Vol]0.7 mg/dL0.3-1.0[facility] HospitalCalcium [Mass/volume] in Serum or PlasmaOrdered By: Opal Ga on 96-52-7381Xnbmjml [Mass/Vol]9.5 mg/dL8.6-10.3FJoint Township District Memorial HospitalCarbon dioxide, total [Moles/volume] in Serum or PlasmaOrdered By: Opal Ga on 21-42-3528SI9 [Moles/Vol]30.7 mmol/L21.0-31.0[facility] HospitalChloride [Moles/volume] in Serum or PlasmaOrdered By: Opal Ga on 33-13-9396Uqhszegv [Moles/Vol]107 mmol/L02-672YzgfepusoSalem City HospitalCholesterol [Mass/volume] in Serum or PlasmaOrdered By: Opal Ga on 17-74-8875Nrkxpmbaliq [Mass/Vol]124 mg/bG374-810HjucwdpalSalem City HospitalComment on above:Chol less than 200 mg/dl low riskChol 201-239 mg/dl borderline riskChol 240 mg/dl and greater high riskCholesterol in LDL Calc [Mass/Vol]Ordered By: Opal Ga on 41-68-2952Kviypefnciy in LDL [Mass/Vol]44 mg/dL0-100[facility] HospitalComment on above:LDL ATP III CLASSIFICATIONLDL less than 100 mg/dL OptimalLDL 100-129 mg/dL Near or above usxakzyBTO199-902 mg/dL Borderline highLDL 160-189 mg/dL HighLDL greater than 189 mg/dL Very highCholesterol in VLDL Calc [Mass/Vol]Ordered By: Opal Ga on 07-95-3352Auxucdvgcsq in VLDL [Mass/Vol]13 mg/dLSalem City HospitalCreatinine [Mass/volume] in Serum or PlasmaOrdered By: Opal Ga on 18-67-0340Qdiskpiovb [Mass/Vol]1.18 mg/dL0.70-1.30[facility] HospitalEosinophils Auto (Bld) [#/Vol] Ordered By: Opal Ga on 49-08-4842Rzyqvegxxec (Bld) [#/Vol]0.8 10*3/uL0.0-0.45 [facility] HospitalEosinophils/100 WBC Auto (Bld)Ordered By: Opal Ga on 95-34-8156Uemdjmmvzbd/100 WBC (Bld)16.6 %.[facility] HospitalErythrocyte distribution width Auto (RBC) [Ratio]Ordered By: Opal Ga on 89-80-6460Texavbkbwrm distribution width (RBC) [Ratio]14.9 %12.0-14.8[facility] HospitalGlobulin Calc (S) [Mass/Vol]Ordered By: Opal aG on 75-30-0017Ixveimmn (S) [Mass/Vol]2.2 g/dLSalem City Hospital Glucose [Mass/volume] in Serum or PlasmaOrdered By: Opal Ga on 09-08-2022 Glucose [Mass/Vol]83 mg/gE66-312GlhrejyrgSalem City HospitalComment on above:ADA recommended reference rangeRandom Glucose Reference Range is dependent on time and content of last meal. Glucose of more than 200 mg/dL in a nonstressed, ambulatory subject supports the diagnosisof Diabetes Mellitus. Hematocrit Auto (Bld) [Volume fraction]Ordered By: Opal Ga on 09-08-2022 Hematocrit (Bld) [Volume fraction]37.1 %38.8-50.0[facility] HospitalHemoglobin [Mass/volume] in BloodOrdered By: Opal Ga on 09-08-2022 Hemoglobin (Bld) [Mass/Vol]12.5 g/dL13.0-17.0[facility] Leukocytes [#/volume] corrected for nucleated erythrocytes in Blood by Automated counOrdered By: Opal Ga on 53-30-6536JEF corrected for nucl RBC Auto (Bld) [#/Vol]4.7 10*3/uL4.1-10.5FJoint Township District Memorial HospitalLymphocytes Auto (Bld) [#/Vol]Ordered By: Opal Ga on 84-36-8714Rvlbodhheyz (Bld) [#/Vol]1.3 10*3/uL1.00-4.8[facility] HospitalLymphocytes/100 WBC Auto (Bld) Ordered By: Opal Ga on 13-50-2848Qwwvdgxjdqk/100 WBC (Bld)27.0 %.[facility] HospitalMCH Auto (RBC) [Entitic mass]Ordered By: Opal Ga on 16-96-9971SIO (RBC) [Entitic mass]33.5 pg27.5-35.2FJoint Township District Memorial HospitalMCHC Auto (RBC) [Mass/Vol]Ordered By: Opal Ga on 14-48-8266NVYH (RBC) [Mass/Vol]33.6 g/dL32.5-35.6FJoint Township District Memorial HospitalMCV Auto (RBC) [Entitic vol]Ordered By: Opal Ga on 22-75-1998DRD (RBC) [Entitic vol]99.7 fL 83.5-101[facility] HospitalMonocytes Auto (Bld) [#/Vol]Ordered By: Opal Ga on 73-69-7753Noslnrcqd (Bld) [#/Vol]0.3 10*3/uL0.0-0.8[facility] HospitalMonocytes/100 WBC Auto (Bld)Ordered By: Opal Ga on 18-47-7873Aratahxqn/100 WBC (Bld)7.2 %.[facility] Natriuretic peptide B [Mass/Vol]Ordered By: Bhupinder Mcintyre on 14-88-2033Dhvopseravz peptide B (Bld) [Mass/Vol]123.0 pg/mL5-100[facility] Neutrophils Auto (Bld) [#/Vol]Ordered By: Opal Ga on 47-78-5928Esxulmedpza (Bld) [#/Vol]2.2 10*3/uL1.8-7.7FJoint Township District Memorial HospitalNeutrophils/100 WBC Auto (Bld)Ordered By: Opal Ga on 11-90-0137Ixydzugahig/100 WBC (Bld)48.2 %.[facility] HospitalNo Panel Informationon 09-08-2022 123.0\S\123.0above high enlebdybo9-646YE-Lgxpf [facility] DO Work Phone: Comment on above:PERFORMED BY:[facility] [place], [place] [id number] MEDICAL DIRECTORJAYY SANTA M.D.No Panel InformationOrdered By: Opal Ga on 09-08-2022 Estimated GFR (CKD-EPI)> 60.0 mL/MinSalem City HospitalPharmacy Creatinine Clearance (ChemN/AFJoint Township District Memorial HospitalNucleated erythrocytes [Presence] in Blood by Automated countOrdered By: Opal Ga on 30-72-4250Wvzlhdipj RBC Auto Ql (Bld)0.2 /100{WBC}0-0.5FJoint Township District Memorial HospitalPlatelet mean volume Auto (Bld) [Entitic vol]Ordered By: Opal Ga on 72-39-9575Zwhvyiyg mean volume (Bld) [Entitic vol]8.8 fL6.6-10.1 [facility] HospitalPlatelets Auto (Bld) [#/Vol]Ordered By: Opal Ga on 27-54-3178Gfootdfbo (Bld) [#/Vol]155 10*3/zD305-258TumrlynleSalem City HospitalPotassium [Moles/volume] in Serum or PlasmaOrdered By: Opal Ga on 98-64-3459Zbepajwxs [Moles/Vol]4.0 mmol/L3.5-5.1FJoint Township District Memorial HospitalProstate specific Ag [Mass/volume] in Serum or PlasmaOrdered By: Opal Ga on 26-34-7146Xepyrhbf specific Ag [Mass/Vol]2.140 ng/mL0.000-4.000[facility] HospitalProtein [Mass/volume] in Serum or PlasmaOrdered By: Opal Ga on 31-61-6075Qibmibt [Mass/Vol]6.3 g/dL6.4-8.9[facility] HospitalRBC Auto (Bld) [#/Vol]Ordered By: Opal Ga on 52-28-1093CYA (Bld) [#/Vol]3.73 10*6/uL3.90-5.60[facility] Campuserum or plasma albumin/globulin mass ratioOrdered By: Opal Ga on 09-08-2022 Albumin/Globulin [Mass ratio]1.9 {ratio}[facility] Campuserum or plasma anion gap determinationOrdered By: Opal Ga on 46-67-7575Cvsxs gap [Moles/Vol]8.3 mmol/L6.0-15.0[facility] Campuserum or plasma high density lipoprotein (HDL) cholesterol measurementOrdered By: Opal Ga on 44-70-5461Zfzmyunxhhq in HDL [Mass/Vol]67 mg/xT39-64BozbmsgjlSalem City HospitalComment on above:HDL CHOL ATP-III CLASSIFICATION Cardiovascular RiskHDL > or equal to 60 mg/dL LOWHDL < 40 mg/dL HIGHSerum or plasma total cholesterol/high density lipoprotein (HDL) cholesterol mass ratOrdered By: Opal Ga on 03-04-8059Lerlbamugen.total/Cholesterol in HDL [Mass ratio]1.9 {ratio} <5.0[facility] Campusodium [Moles/volume] in Serum or Plasma Ordered By: Opal Ga on 97-24-4866Qpmtuh [Moles/Vol]142 mmol/E976-615IujmgfrziSalem City HospitalThyrotropin [Units/volume] in Serum or PlasmaOrdered By: Opal Ga on 20-08-6115IUJ Qn0.46 m[IU]/L0.45-5.33[facility] HospitalThyroxine (T4) free [Mass/volume] in Serum or PlasmaOrdered By: Opal Ga on 11-27-4058Eyod T4 [Mass/Vol]1.28 ng/dL0.61-1.12[facility] HospitalTriglyceride [Mass/volume] in Serum or PlasmaOrdered By: Opal Ga on 06-65-7119Uzecgfvkwytk [Mass/Vol]66 mg/dL0-149[facility] Comment on above:TRIG ATP III CLASSIFICATIONTRIG less than 150 mg/dL NormalTRIG 150-199 mg/dL Borderline highTRIG 200-500 mg/dL High TRIG greater than 500 mg/dL Very highStandard traceable to the Center for Disease Conrtrol and Prevention (CDC) test method.Urea nitrogen [Mass/volume] in Serum or PlasmaOrdered By: Opal Ga on 90-30-7206Vhxa nitrogen [Mass/Vol]22 mg/dL7[facility] HospitalWBC Auto (Bld) [#/Vol]Ordered By: Opal Ga on 29-15-6740RXR (Bld) [#/Vol]4.7 10*3/uL4.1-10.5FJoint Township District Memorial HospitalOffice Visit (Cardiology)on 97-75-2973Qyecxi-up visitDiagnoses/Problems Assessed Heart failure, NYHA class 2 (428.9) [...] Follow up in 1 year. Chief Complaint TAVO WALLIS is being seen for an annual [...] of Cardiac catheterization History of Complete colonoscopy [facility] History of Epidural steroid injection History of [...] falls. All other sy (more content not included)...NormalUH TouchworksTobacco Screening. on 64-53-4978Zlvgwmz use status CPHSb) [facility] 250 DO Work Phone: US KIDNEYS BLADDERon 12-84-6846EG KIDNEYS BLADDEREXAM: US KIDNEYS BLADDER 05/13/2022 HISTORY: Urinary tract infectious disease COMPARISON: [...] Electronically authenticated by: RONALD ISRAEL Date: 2022-05-13 09:51[facility] HospitalCardiovasc Arrhythmia Resultson 58-37-2024Tnbvfmwdqc Arrhythmia ResultsReason For Visit Reason for Visit: Holter Monitor: TAVO is here for the application of a 24 hour Holter monitor. Ordering Physician: Enedelia Aguillon NP Diagnosis: afib NO equipment agreement signed. TAVO understands monitor is to be returned on: 03/16/2022 Monitor number [id number] applied. Holter monitor printed and placed on [...] Chronic atrial fibrillation (427.31) (I48.20) Future Appointments Date/TimeProviderSpecialtySite 07/07/2022 09:20 Tavo Link, [id number] [facility] [address] 250 DO Signatures Electronically signed by : Marv Urena MD; Mar 19 2022 6:25PM EST (Author) Electronically signed by : Enedelia Gomez APRN-FIELD SERVICE SUPERVISOR; Mar 22 2022 9:37AM EST (Author)NormalUH TouchworksCreatinine and Glomerular filtration rate.predicted panel (S/P/Bld)Ordered By: Enedelia Gomez on 83-46-6960Vdtlxbgtio [Mass/Vol]1.28 mg/dL0.64-1.27[facility] HospitalEstimated glomerular filtration rate (GFR) non- AmericanOrdered By: Enedelia Gomez on 38-60-7928FPH/1.73 sq M.predicted among non-blacks MDRD (S/P/Bld) [Vol rate/Area]54 mL/MinSalem City HospitalNo Panel InformationOrdered By: Enedelia Gomez on 03-11-2022 Estimated GFR ()> 60 mL/MinSalem City Hospital Comment on above:GFR estimated reference range: According to KDOQI guidelines, <60 ml/min/1.73m2 is sufficient todiagnose a patient with chronic kidney disease.Pharmacy Creatinine Clearance (ChemN/[facility] No Panel Informationon .1\S\10.2Jxmcfz2.0-15.0MP-[facility] 250 DO Work Phone: [phone]\S\9.9Tjognu3.2-10.2MP-[facility] 250 DO Work Phone: Comment on above:PERFORMED BY:[place] [address] [place], [place] [id number] MEDICAL DIRECTORJAYY SANTA M.D.30.5\S\30.5above high eowfpxehi13.0-30.0MP-[facility] 250 DO Work Phone: [phone]\S\946Odxrrn72-795JH-Twwxh [facility] 250 DO Work Phone: [phone]\S\3.6Biicnv1.5-5.1MP-[facility] 250 DO Work Phone: [phone]\S\870Qvkdpe107-382FF-Opevl [facility] 250 DO Work Phone: > 60NormalMP-[facility] 250 DO Work Phone: Comment on above:GFR estimated reference range: According to KDOQI guidelines, <60 ml/min/1.73m2 is sufficient todiagnose a patient with chronic kidney disease.54\S\54NormalMP-[facility] 250 DO Work Phone: [phone]\S\1.28above high threshold0.64-1.27MP-[facility] 250 DO Work Phone: [phone]\S\93Eelwuo3-87ZY-Iwsre [facility] 250 DO Work Phone: [phone]\S\43Icfxgu52-109SI-Qgtpe [facility] 250 DO Work Phone: Comment on above:Random Glucose Reference Range is dependent on time and content of last meal. Glucose of more than 200 mg/dL in a nonstressed, ambulatory subject supports the diagnosis of Diabetes Mellitus. ADA recommended reference rangeSerum or plasma anion gap determinationOrdered By: Enedelia Gomez on 25-39-9372Utydo gap [Moles/Vol]10.1 mmol/L6.0-15.0[facility] Campuserum or plasma calcium measurement (mass/volume)Ordered By: Enedelia Gomez on 80-69-4148Lczadwo [Mass/Vol]9.9 mg/dL8.2-10.2FUniversity Hospitals Elyria Medical Centererum or plasma chloride measurement (moles/volume) Ordered By: Enedelia Gomez on 48-63-3357Pfxwofhs [Moles/Vol]100 mmol/L95-114 [facility] Campuserum or plasma glucose measurement (mass/volume)Ordered By: Enedelia Gomez on 99-62-1413Heicfre [Mass/Vol]96 mg/dL 70-100[facility] HospitalComment on above:ADA recommended reference rangeRandom Glucose Reference Range is dependent on time and content of last meal. Glucose of more than 200 mg/dL in a nonstressed, ambulatory subject supports the diagnosisof Diabetes Mellitus.Serum or plasma potassium measurement (moles/volume)Ordered By: Enedelia Gomez on 37-87-0470Ljtwbpmnq [Moles/Vol]3.6 mmol/L3.5-5.1FUniversity Hospitals Elyria Medical Centererum or plasma sodium measurement (moles/volume)Ordered By: Enedelia Gomez on 35-78-3726Jxxyng [Moles/Vol]137 mmol/L782-301DzvbbhxvpTrinity Health System West Campuserum or plasma total carbon dioxide measurement (moles/volume)Ordered By: Enedelia Gomez on 06-29-8283MP1 [Moles/Vol]30.5 mmol/L22.0-30.0[facility] Serum or plasma urea nitrogen measurement (mass/volume)Ordered By: Enedelia Gomez on 18-22-8235Bzhr nitrogen [Mass/Vol]17 mg/dL9-23[facility] HospitalOffice Visit (Cardiology)on 10-58-7012Kzpmvx-up visitDiagnoses/Problems Assessed Chronic atrial fibrillation (427.31) (I48.20) Chronic [...] in adult Healthy Weight Tips; Status:Complete; Done: 18Gtr6789 Patient Instructions Please bring all medicines, vitamins, [...] making process incorporating patients unique circumstances, the followingtreatment plan will be initiated: 1. Prescription drug [...] Hospital f/u: 'seem to be doing fine' TAVO WALLIS is being seen for follow-up of a hospitalization for dizziness. Patient presents to the office ambulatory with wheeled walker and steady gait. Last evaluated in clinic Dr. Mcintyre July 2021. 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 He denies any palpitations or fast heartbeats. [...] of Cardiac catheterization History of Complete colonoscopy [facility] History of Epidural steroid injection History of [...] Oral TabletTAKE 1 (more content not included)... NormalUH TouchworksTobacco Screening.on 13-83-3738Touij depression screening assessmentNoHighline [facility] 250 DO Work Phone: Fall risk assessmentb) One or more falls in the last yearHighline [facility] 250 DO Work Phone: Tobacco use status CPHSb) [facility] 250 DO Work Phone: Basophils Auto (Bld) [#/Vol]Ordered By: Raji Ennis on 12-12-3646Xcogpsbpp (Bld) [#/Vol]0.1 10*3/uL0.0-0.2FJoint Township District Memorial HospitalBasophils/100 WBC Auto (Bld)Ordered By: Raji Ennis on 01-16-2022 Basophils/100 WBC (Bld)1.0 %.[facility] HospitalCreatinine and Glomerular filtration rate.predicted panel (S/P/Bld)Ordered By: Raji Ennis on 89-65-1046Mflhhiwkhj [Mass/Vol]1.56 mg/dL0.64-1.27[facility] HospitalEosinophils Auto (Bld) [#/Vol]Ordered By: Raji Ennis on 01-16-2022 Eosinophils (Bld) [#/Vol]0.4 10*3/uL0.0-0.45[facility] Eosinophils/100 WBC Auto (Bld)Ordered By: Raji Ennis on 01-16-2022 Eosinophils/100 WBC (Bld)5.6 %.[facility] HospitalErythrocyte distribution width Auto (RBC) [Ratio]Ordered By: Raji Ennis on 01-16-2022 Erythrocyte distribution width (RBC) [Ratio]15.3 %12.0-14.8[facility] HospitalEstimated glomerular filtration rate (GFR) non- Ordered By: Raji Ennis on 88-58-0782WCF/1.73 sq M.predicted among non-blacks MDRD (S/P/Bld) [Vol rate/Area]43 mL/MinSalem City Hospital Hematocrit Auto (Bld) [Volume fraction]Ordered By: Raji Ennis on 01-16-2022 Hematocrit (Bld) [Volume fraction]35.4 %38.8-50.0[facility] HospitalHemoglobin [Mass/volume] in BloodOrdered By: Raji Ennis on 01-16-2022 Hemoglobin (Bld) [Mass/Vol]11.8 g/dL13.0-17.0[facility] - Hematology and Cell countsOrdered By: Raji Ennis on 01-16-2022 Nucleated RBC/100 WBC (Bld) [Ratio]0.0 %0-0.5FJoint Township District Memorial Hospital Leukocytes [#/volume] in Blood by Automated countOrdered By: Raji Ennis on 56-67-4654BBD (Bld) [#/Vol]6.5 10*3/uL4.5-11.0[facility] Lymphocytes Auto (Bld) [#/Vol]Ordered By: Raji Ennis on 49-38-0450Zejtoquziyi (Bld) [#/Vol]1.1 10*3/uL1.00-4.8[facility] HospitalLymphocytes/100 WBC Auto (Bld)Ordered By: Raji Ennis on 39-75-7000Ghdvfvbfjty/100 WBC (Bld) 17.1 %.[facility] Auto (RBC) [Entitic mass]Ordered By: Raji Ennis on 64-20-4056OOQ (RBC) [Entitic mass]33.2 pg27.5-35.2FKettering Health Dayton Auto (RBC) [Mass/Vol]Ordered By: Raji Ennis on 96-57-4575QVWB (RBC) [Mass/Vol]33.3 g/dL32.5-35.6FJoint Township District Memorial HospitalMCV Auto (RBC) [Entitic vol]Ordered By: Raji Raymon on 75-88-8548WLF (RBC) [Entitic vol]100.0 fL83.5-101[facility] HospitalMonocytes Auto (Bld) [#/Vol]Ordered By: Raji Raymon on 22-86-5254Fhknjzzkl (Bld) [#/Vol] 0.8 10*3/uL0.0-0.8[facility] HospitalMonocytes/100 WBC Auto (Bld) Ordered By: Raji Raymon on 25-76-9872Kjdvrvwsn/100 WBC (Bld)11.9 %.[facility] HospitalNeutrophils Auto (Bld) [#/Vol]Ordered By: Raji Raymon on 96-98-5067Nvzvwerfmey (Bld) [#/Vol]4.2 10*3/uL1.8-7.7FJoint Township District Memorial HospitalNeutrophils/100 WBC Auto (Bld)Ordered By: Raji Raymon on 01-16-2022 Neutrophils/100 WBC (Bld)64.4 %.[facility] HospitalNo Panel InformationOrdered By: Raji Raymon on 29-08-2179Bgsusidyh GFR ()52 mL/MinSalem City HospitalComment on above:GFR estimated reference range: According to KDOQI guidelines, <60 ml/min/1.73m2 is sufficient todiagnose a patient with chronic kidney disease.Pharmacy Creatinine Clearance (Chem39.79[facility] HospitalPlatelet mean volume Auto (Bld) [Entitic vol]Ordered By: Raji Raymon on [id number] mean volume (Bld) [Entitic vol]9.1 fL6.6-10.1FJoint Township District Memorial HospitalPlatelets Auto (Bld) [#/Vol]Ordered By: Raji Raymon on [id number] (Bld) [#/Vol]195 10*3/iU535-196XgxubleuaSalem City HospitalRBC Auto (Bld) [#/Vol]Ordered By: Raji Ennis on 69-05-6570NJL (Bld) [#/Vol]3.54 10*6/uL3.90-5.60[facility] Campuserum or plasma anion gap determinationOrdered By: Raji Ennis on 03-52-3062Trvry gap [Moles/Vol]11.4 mmol/L6.0-15.0[facility] Campuserum or plasma calcium measurement (mass/volume)Ordered By: Raji Raymon on 24-77-5855Mxggzsb [Mass/Vol]9.0 mg/dL8.2-10.2FUniversity Hospitals Elyria Medical Centererum or plasma chloride measurement (moles/volume)Ordered By: RajiStaufferam 56-09-8867Xyssydvp [Moles/Vol]95 mmol/K78-932BcizltavjTrinity Health System West Campuserum or plasma glucose measurement (mass/volume)Ordered By: Raji Raymon 50-44-1296Afjqygn [Mass/Vol]87 mg/jJ70-780LwxdbzktuSalem City HospitalComment on above:ADA recommended reference rangeRandom Glucose Reference Range is dependent on time and content of last meal. Glucose of more than 200 mg/dL in a nonstressed, ambulatory subject supports the diagnosisof Diabetes Mellitus.Serum or plasma potassium measurement (moles/volume)Ordered By: Raji Ennis 95-90-1907Ricsrwwea [Moles/Vol]4.0 mmol/L3.5-5.1FUniversity Hospitals Elyria Medical Centererum or plasma sodium measurement (moles/volume)Ordered By: Raji Ennis 15-35-6879Yfomly [Moles/Vol]132 mmol/Z091-761MyvbityhwTrinity Health System West Campuserum or plasma total carbon dioxide measurement (moles/volume) Ordered By: Raji Arringtonam 66-85-7370ZL5 [Moles/Vol]29.6 mmol/L22.0-30.0 [facility] Campuserum or plasma urea nitrogen measurement (mass/volume)Ordered By: Raji Ennis 58-94-8389Adyq nitrogen [Mass/Vol]29 mg/dL9-23[facility] City HospitalUrine culture routineOrdered By: Frankie Reynolds on 29-02-7795Lcdlqxgz identified Cx Nom (U)No Growth 2 Days [facility] HospitalAutomated erythrocytes count in urine sediment (number/area)Ordered By: Frankie Reynolds on 69-87-5691GVW Auto (Urine sed) [#/Area]50-100 [HPF]0-4FJoint Township District Memorial HospitalAutomated leukocytes count in urine sediment (number/area)Ordered By: Frankie Reynolds on 75-16-4881CDO Auto (Urine sed) [#/Area]5-9 [HPF]0-4FJoint Township District Memorial HospitalBilirubin Test strip Ql (U)Ordered By: Frankie eRynolds on 47-02-4019Pvkoaxmdo Ql (U)Negative NegativeSalem City HospitalColor Auto (U)Ordered By: Frankie Reynolds on 56-82-9115Krmut (U)YellowYellowSalem City HospitalKetones Auto test strip (U) [Mass/Vol]Ordered By: Frankie Reynolds on 68-63-2203Gzwonoq (U) [Mass/Vol]NegativeNegativeSalem City HospitalLaboratory - UrinalysisOrdered By: Frankie Reynolds on 09-37-1625Yiwcqta casts LM Ql (Urine sed) 0-8 [LPF]0-8[facility] HospitalNitrite Test strip Ql (U)Ordered By: Frankie Reynolds on 87-50-0764Olzxdgo Ql (U)NegativeNegCleveland Clinic South Pointe HospitalProtein Auto test strip (U) [Mass/Vol]Ordered By: Frankie Reynolds on 53-01-1040Sivpaoq (U) [Mass/Vol]30 mg/dLNegativeTrinity Health System West Campuserum or plasma uric acid measurement (mass/volume)Ordered By: Frankie Reynolds on 32-35-2998Presi [Mass/Vol]4.7 mg/dL2.6-7.2FUniversity Hospitals Elyria Medical Centererum or plasma vancomycin measurement (mass/volume)Ordered By: Raji Ennis on 17-20-1326Fykxibmwbq [Mass/Vol]9.7 ug/mL5.0-20.0[facility] HospitalComment on above:Last dose: -Specific gravity Auto test strip (U) [Rel density]Ordered By: Frankie Reynolds on 61-80-4405Djnjnnfo gravity (U) [Rel density]1.0121.001-1.030[facility] Campusquamous epithelial cells detection in urine sediment by light microscopyOrdered By: Frankie Reynolds on 44-43-0188Wwqebsuoel cells.squamous LM Ql (Urine sed)0-1 [HPF]0-2FJoint Township District Memorial HospitalUrine bacteria detection by automated methodOrdered By: Frankie Reynolds on 63-61-7024Yfzsmhif Auto Ql (U)None seenNone SeenSalem City HospitalUrine clarity by refractometry automatedOrdered By: Frankie Reynolds on 70-50-6438Zfanhqa Refractometry automated (U)ClearClear [facility] HospitalUrine culture routineOrdered By: Frankie Reynolds on 51-82-8929Dhrtscyc identified Cx Nom (U)No Growth 2 DaysSalem City HospitalUrine glucose measurement by automated test strip (mass/volume) Ordered By: Frankie Reynolds on 23-80-4570Aurfvrj Auto test strip (U) [Mass/Vol] Normal mg/dLNoKettering Health Main CampusUrine hemoglobin detection by automated test stripOrdered By: Frankie Reynolds on 61-92-1833Ydgqszfcca Auto test strip Ql (U)3+NegativeSalem City HospitalUrine leukocyte esterase detection by automated test stripOrdered By: Frankie Reynolds on 01-13-2022 Leukocyte esterase Auto test strip Ql (U)2+NegativeSalem City HospitalUrobilinogen Auto test strip (U) [Mass/Vol]Ordered By: Frankie Reynolds on 41-62-6439Wltrmshnbpzu (U) [Mass/Vol]Normal mg/dLNoKettering Health Main CampuspH Auto test strip (U)Ordered By: Frankie Reynolds on 62-34-7268vM (U)5.5 [pH]5.0-9.0[facility] HospitalBacterial blood culture Ordered By: Raji Ennis on 27-95-0781Jutaycin identified Cx Nom (Bld)NO GROWTH 5 DAYSSalem City HospitalC reactive protein [Mass/volume] in Serum or PlasmaOrdered By: Raji Ennis on 63-80-5889NOB [Mass/Vol]8.4 mg/dL0.0-1.0 [facility] HospitalAlbumin [Mass/volume] in Serum or PlasmaOrdered By: Vikas Mane on 01-45-1140Pmbavxf [Mass/Vol]2.9 g/dL2.9-4.4FJoint Township District Memorial HospitalIgA [Mass/volume] in Serum or PlasmaOrdered By: Vikas Mane on 10-65-0659WjG [Mass/Vol]171 mg/zO95-842BdndoyrkpSalem City HospitalIgG [Mass/volume] in Serum or PlasmaOrdered By: Vikas Mane on 01-11-2022 IgG [Mass/Vol]816 mg/gE223-8802PyukatkwsSalem City HospitalIgM [Mass/volume] in Serum or PlasmaOrdered By: Vikas Mane on 98-47-1399PsC [Mass/Vol]105 mg/xP30-835KfbjjzwqaSalem City HospitalComment on above: Performed at: [employer] [id number] Director: Patrick Ortiz PhD, Phone: [phone] Panel InformationOrdered By: Vikas Mane on 43-57-0651Jludwoo Electrophoresis M-SpikeNot observed g/dLNot ObservedSalem City HospitalProtein Electrophoresis NoteSee comment.[facility] HospitalComment on above:Protein electrophoresis scan will follow via computer,mail, or dietist delivery.Performed at: [employer] [id number] Director: Patrick Ortiz PhD, Phone: [phone] ImmunofixationSee comment.[facility] HospitalComment on above:No monoclonality detected.Protein [Mass/volume] in Serum or PlasmaOrdered By: Vikas Mane on 98-13-8763Tcicbtd [Mass/Vol]5.3 g/dL6.0-8.5FUniversity Hospitals Elyria Medical Centererum globulin measurement (mass/volume)Ordered By: Vikas Mane on 20-23-4396Xtetxcvj (S) [Mass/Vol]2.4 g/dL2.2-3.9[facility] Campuserum or plasma albumin/globulin mass ratioOrdered By: Vikas Mane on 35-65-0859Sazzzek/Globulin [Mass ratio]1.2 {ratio}0.7-1.7FUniversity Hospitals Elyria Medical Centererum or plasma alpha 1 globulin measurement by electrophoresis (mass/volume)Ordered By: Vikas Mane on 94-73-4313Adxeu 1 globulin Elph [Mass/Vol]0.4 g/dL0.0-0.4FUniversity Hospitals Elyria Medical Centererum or plasma alpha 2 globulin measurement by electrophoresis (mass/volume)Ordered By: Vikas Mane on 22-17-3976Aagmw 2 globulin Elph [Mass/Vol]0.7 g/dL0.4-1.0[facility] Campuserum or plasma beta globulin measurement by electrophoresis (mass/volume)Ordered By: Vikas Mane on 52-20-4440Axbw globulin Elph [Mass/Vol] 0.6 g/dL0.7-1.3FUniversity Hospitals Elyria Medical Centererum or plasma gamma globulin measurement by electrophoresis (mass/volume)Ordered By: Vikas Mane on 21-21-8379Iszdz globulin Elph [Mass/Vol]0.8 g/dL0.4-1.8[facility] HospitalFolate [Mass/volume] in Serum or PlasmaOrdered By: Dharmesh Zavala on 30-62-2219Snypvp [Mass/Vol]8.8 ng/mL>5.9[facility] HospitalComment on above:Folate reference range: >5.9 ng/mlThe WHO technical consultation on folate and vitamin r92owlhyliiqgzh has determined that folate concentrations lessthan 4 ng/ml are considered deficient.Glucose mean value [Mass/volume] in Blood Estimated from glycated hemoglobinOrdered By: Dharmesh Zavala on 00-77-4870Blpossb glucose Estimated from glycated hemoglobin (Bld) [Mass/Vol]114 mg/dLSalem City HospitalHemoglobin A1c percentage Ordered By: Dharmesh Zavala on 95-78-7601KwA2t (Bld) [Mass fraction]5.6 % 4.3-5.6FJoint Township District Memorial HospitalComment on above:Increased risk for diabetes: 5.7 - 6.4diabetes: >6.4glycemic control for adults with diabetes: &l t;7.0Iron [Mass/volume] in Serum or PlasmaOrdered By: Dharmesh Zavala on 24-95-9313Kgaa [Mass/Vol]13 ug/mC06-454NjoagdyarSalem City Hospital Laboratory - Chemistry and Chemistry - challengeOrdered By: Dharmesh Zavala on 66-49-6201Kdmehggiv (Vitamin B12) [Mass/Vol]458 pg/iF757-990NkauftzfzSalem City HospitalMagnesium [Mass/Vol]1.9 mg/dL1.6-2.6FJoint Township District Memorial HospitalNatriuretic peptide B (Bld) [Mass/Vol]679.0 pg/mL5-100[facility] HospitalTS DL <= 0.005 mIU/L QnOrdered By: Dharmesh Zavala on 03-94-4125EQP Qn3.99 m[IU]/L0.45-5.33[facility] Troponin I.cardiac [Mass/volume] in Serum or Plasma by High sensitivity method Ordered By: Dharmesh Zavala on 29-08-6161Nlfrkurk I.cardiac High sensitivity method [Mass/Vol]110 pg/mL0-20[facility] Comment on above:Results calledat 0808 on 01/10/22Activated partial thromboplastin time (aPTT) in platelet poor plasma by coagulation aOrdered By: Frankie Paiz on 31-75-0959dWAN Coag (PPP) [Time]39.1 s25.1-36.5FJoint Township District Memorial HospitalAutomated erythrocytes count in urine sediment (number/area)Ordered By: Frankie Paiz on 40-06-7313NJH Auto (Urine sed) [#/Area]0-1 [HPF]0-4FJoint Township District Memorial HospitalAutomated leukocytes count in urine sediment (number/area)Ordered By: Frankie Paiz on 44-22-3718TPH Auto (Urine sed) [#/Area]5-9 [HPF]0-4FJoint Township District Memorial HospitalBasophils Auto (Bld) [#/Vol]Ordered By: Frankie Paiz on 29-59-3054Jjerienfx (Bld) [#/Vol]0.1 10*3/uL0.0-0.2FJoint Township District Memorial HospitalBasophils/100 WBC Auto (Bld) Ordered By: Frankie Paiz on 00-84-4410Shcxcjkmr/100 WBC (Bld)1.0 %.[facility] HospitalBilirubin Test strip Ql (U)Ordered By: Frankie Paiz on 81-57-3860Ghasuqnre Ql (U)NegativeNegCleveland Clinic South Pointe Hospital COVID-19 Positive/NegativeOrdered By: Frankie Paiz on 65-05-8049RKWR-CoV-2 (COVID-19) N gene SMITHA+probe Ql (Resp)NegativeNegCleveland Clinic South Pointe HospitalComment on above:Testing for SARS-CoV-2 by RT-PCRThis test was developed and its performance characteristics determined by [employer] ([employer]) and validated at the [facility]. This test has not been FDA [...] terminated or revoked sooner. COVID-19 SOFIAOrdered By: Frankie Paiz on 33-51-3746VYEO-CoV+SARS-CoV-2 (COVID-19) Ag IA.rapid Ql (Resp)NegativeNegCleveland Clinic South Pointe HospitalComment on above:This is a duplicate Veronica SARS Antigen (MADHAVI) result to be used for statistical tracking purpose only.Color Auto (U)Ordered By: Frankie Paiz on 31-29-2909Jmwck (U)YellowYellowSalem City Hospital Creatine kinase [Enzymatic activity/volume] in Serum or PlasmaOrdered By: Frankie Paiz on 14-11-6972QH [Catalytic activity/Vol]231 U/H38-228QyuqjspnpSalem City HospitalCreatinine and Glomerular filtration rate.predicted panel (S/P/Bld)Ordered By: Frankie Paiz on 05-34-9428Vdvyukgzmp [Mass/Vol]1.62 mg/dL 0.64-1.27[facility] HospitalEosinophils Auto (Bld) [#/Vol]Ordered By: Frankie Paiz on 63-44-5040Fcktbcufxsj (Bld) [#/Vol]0.0 10*3/uL0.0-0.45 [facility] HospitalEosinophils/100 WBC Auto (Bld)Ordered By: Frankie Paiz on 75-57-1886Vabubzvwglx/100 WBC (Bld)0.1 %.[facility] HospitalErythrocyte distribution width Auto (RBC) [Ratio]Ordered By: Frankie Paiz on 49-19-7279Ybculrvvhdr distribution width (RBC) [Ratio]15.9 % 12.0-14.8[facility] HospitalEstimated glomerular filtration rate (GFR) non- AmericanOrdered By: Frankie Paiz on 40-51-4090SZT/1.73 sq M.predicted among non-blacks MDRD (S/P/Bld) [Vol rate/Area]41 mL/MinSalem City HospitalHematocrit Auto (Bld) [Volume fraction]Ordered By: Frankie Paiz on 90-07-2735Yezswymeys (Bld) [Volume fraction]36.5 %38.8-50.0 [facility] HospitalHemoglobin [Mass/volume] in BloodOrdered By: Frankie Paiz on 46-63-7721Lfvvlrqupy (Bld) [Mass/Vol]12.1 g/dL13.0-17.0 [facility] HospitalKetones Auto test strip (U) [Mass/Vol]Ordered By: Frankie Paiz on 80-21-0690Fjwhiia (U) [Mass/Vol]TraceNegativeSalem City HospitalLaboratory - Chemistry and Chemistry - challengeOrdered By: Frankie Paiz on 02-07-9920Nuaxbsfwaqp peptide B (Bld) [Mass/Vol]1810.0 pg/mL5-100[facility] HospitalLaboratory - CoagulationOrdered By: Frankie Pazi on 40-77-3090CU Coag (PPP) [Time]28.4 s9.0-12.9[facility] HospitalLaboratory - Hematology and Cell countsOrdered By: Frankie Paiz on 29-70-9298Exluavfqm RBC/100 WBC (Bld) [Ratio]0.1 %0-0.5FJoint Township District Memorial HospitalLaboratory - UrinalysisOrdered By: Frankie Paiz on 01-09-2022 Hyaline casts LM Ql (Urine sed)0-8 [LPF]0-8[facility] Leukocytes [#/volume] in Blood by Automated countOrdered By: Frankie Paiz on 08-10-0945ZZK (Bld) [#/Vol]6.0 10*3/uL4.5-11.0[facility] Lymphocytes Auto (Bld) [#/Vol]Ordered By: Frankie Paiz on 01-09-2022 Lymphocytes (Bld) [#/Vol]0.8 10*3/uL1.00-4.8[facility] Lymphocytes/100 WBC Auto (Bld)Ordered By: Frankie Paiz on 01-09-2022 Lymphocytes/100 WBC (Bld)13.5 %.[facility] Auto (RBC) [Entitic mass]Ordered By: Frankie Paiz on 12-44-1894WBV (RBC) [Entitic mass] 33.7 pg27.5-35.2FJoint Township District Memorial HospitalMCHC Auto (RBC) [Mass/Vol] Ordered By: Frankie Paiz on 81-64-3677VASZ (RBC) [Mass/Vol]33.2 g/dL32.5-35.6 [facility] HospitalMCV Auto (RBC) [Entitic vol]Ordered By: Frankie Paiz on 63-48-3561XLK (RBC) [Entitic vol]101.5 fL83.5-101[facility] HospitalMonocytes Auto (Bld) [#/Vol]Ordered By: Frankie Paiz on 21-66-4839Spiyldipp (Bld) [#/Vol]0.9 10*3/uL0.0-0.8[facility] HospitalMonocytes/100 WBC Auto (Bld)Ordered By: Frankie Paiz on 01-09-2022 Monocytes/100 WBC (Bld)14.2 %.[facility] HospitalNeutrophils Auto (Bld) [#/Vol]Ordered By: Frankie Paiz on 15-85-5452Bzqxvbsulrs (Bld) [#/Vol] 4.3 10*3/uL1.8-7.7FJoint Township District Memorial HospitalNeutrophils/100 WBC Auto (Bld)Ordered By: Frankie Paiz on 05-02-7201Cgyzvussqjb/100 WBC (Bld)71.2 %. [facility] HospitalNitrite Test strip Ql (U)Ordered By: Frankie Paiz on 68-59-0684Bjpvjjv Ql (U)NegativeNegativeSalem City HospitalNo Panel InformationOrdered By: Frankie Paiz on 93-95-4949GWET Antigen (LFIA)[facility] HospitalEstimated GFR ()50 mL/Min [facility] HospitalComment on above:GFR estimated reference range: According to KDOQI guidelines, <60 ml/min/1.73m2 is sufficient todiagnose a patient with chronic kidney disease.Pharmacy Creatinine Clearance (Chem39.44 [facility] CampusARS Antigen (LFIA)[facility] HospitalPlatelet mean volume Auto (Bld) [Entitic vol]Ordered By: Frankie Paiz on 42-76-6379Fmgeuhmb mean volume (Bld) [Entitic vol]8.3 fL6.6-10.1FJoint Township District Memorial HospitalPlatelet poor plasma international normalized ratio (INR) by coagulation assay (relatOrdered By: Frankie Paiz on 18-46-9103CEE Coag (PPP) [Relative time]2.5 {INR}[facility] HospitalComment on above: INR Therapeutic Range A) Pre- and Peroperative OAT started two weeks before surgery. NOT HIP SURGERY: 1.5 - 2.5 HIP SURGERY: 2 - 3B) Primary and secondary prevention of venous THROMBOSIS: 2 - 3C) Active venous thrombosis, pulmonary embolismand prevention of recurrent venous thrombosis: 2 - 3D) Prevention of arterial thromboembolismincluding patients with mechanical heart valves: 3 - 4.5 Platelets Auto (Bld) [#/Vol]Ordered By: Frankie Paiz on 71-73-5644Iuzgpgapy (Bld) [#/Vol]162 10*3/gC337-041MzvpcqideSalem City HospitalProtein Auto test strip (U) [Mass/Vol]Ordered By: Frankie Paiz on 49-69-1947Ikuktiv (U) [Mass/Vol]Trace mg/dLNegativeSalem City HospitalRBC Auto (Bld) [#/Vol]Ordered By: Frankie Paiz on 25-78-3912GRV (Bld) [#/Vol]3.59 10*6/uL 3.90-5.60[facility] Campuserum or plasma anion gap determinationOrdered By: Frankie Paiz on 75-13-1407Wdvot gap [Moles/Vol]14.9 mmol/L6.0-15.0[facility] Campuserum or plasma calcium measurement (mass/volume)Ordered By: Frankie Paiz on 51-49-7376Dwefzom [Mass/Vol]9.2 mg/dL8.2-10.2FUniversity Hospitals Elyria Medical Centererum or plasma chloride measurement (moles/volume)Ordered By: Frankie Paiz on 01-09-2022 Chloride [Moles/Vol]100 mmol/B95-812LjoxfnrexTrinity Health System West Campuserum or plasma creatine kinase MB (CKMB)/total creatine kinase (CK) ratio by calcula Ordered By: Frankie Paiz on 02-36-3158JW.MB Calc [Catalytic fraction]2.3 % 0.00-2.50[facility] Campuserum or plasma creatine kinase MB measurement (mass/volume)Ordered By: Frankie Paiz on 18-32-3361HE.MB [Mass/Vol]5.4 ng/mL0.6-6.3FUniversity Hospitals Elyria Medical Centererum or plasma glucose measurement (mass/volume)Ordered By: Frankie Paiz on 96-09-8151Kakvaly [Mass/Vol]99 mg/yY77-531OplmpztkiSalem City HospitalComment on above:ADA recommended reference rangeRandom Glucose Reference Range is dependent on time and content of last meal. Glucose of more than 200 mg/dL in a nonstressed, ambulatory subject supports the diagnosisof Diabetes Mellitus.Serum or plasma potassium measurement (moles/volume)Ordered By: Frankie Paiz on 01-09-2022 Potassium [Moles/Vol]4.1 mmol/L3.5-5.1FUniversity Hospitals Elyria Medical Centererum or plasma sodium measurement (moles/volume)Ordered By: Frankie Paiz on 01-09-2022 Sodium [Moles/Vol]136 mmol/O043-986SxebmobmhTrinity Health System West Campuserum or plasma total carbon dioxide measurement (moles/volume)Ordered By: Frankie Paiz on 79-42-2562AB8 [Moles/Vol]25.2 mmol/L22.0-30.0[facility] Campuserum or plasma urea nitrogen measurement (mass/volume)Ordered By: Frankie Paiz on 41-94-0171Cxwj nitrogen [Mass/Vol]21 mg/dL9-23[facility] Campuspecific gravity Auto test strip (U) [Rel density]Ordered By: Frankie Paiz on 72-03-4928Nmhakzfl gravity (U) [Rel density]1.0181.001-1.030 [facility] Campusquamous epithelial cells detection in urine sediment by light microscopyOrdered By: Frankie Paiz on 32-74-4802Ruqxweiuxf cells.squamous LM Ql (Urine sed)0-1 [HPF]0-2FJoint Township District Memorial Hospital Troponin I.cardiac [Mass/volume] in Serum or Plasma by High sensitivity method Ordered By: Frankie Paiz on 22-60-8329Waayoion I.cardiac High sensitivity method [Mass/Vol]101 pg/mL0-20[facility] HospitalComment on above: Results calledat 1208 on 01/09/22Urine bacteria detection by automated method Ordered By: Frankie Paiz on 54-97-9453Knsnzgih Auto Ql (U)None seenNone Seen [facility] HospitalUrine clarity by refractometry automatedOrdered By: Frankie Paiz on 20-61-2327Stcfpmf Refractometry automated (U)CloudyClear [facility] HospitalUrine glucose measurement by automated test strip (mass/volume)Ordered By: Frankie Paiz on 62-79-2843Lojpovb Auto test strip (U) [Mass/Vol]Normal mg/dLNoKettering Health Main CampusUrine hemoglobin detection by automated test stripOrdered By: Frankie Paiz on 35-59-9096Oyggvyqrup Auto test strip Ql (U)NegativeNegativeSalem City HospitalUrine leukocyte esterase detection by automated test stripOrdered By: Frankie Paiz on 26-12-8664Neqicgatz esterase Auto test strip Ql (U)2+ NegativeSalem City HospitalUrobilinogen Auto test strip (U) [Mass/Vol]Ordered By: Frankie Paiz on 01-74-0506Tsgjtghmgjwl (U) [Mass/Vol] Normal mg/dLNormalSalem City HospitalYeast detection in urine sediment by light microscopyOrdered By: Frankie Paiz on 80-98-9362Iihrk LM Ql (Urine sed)None seen [HPF]None SeenSalem City HospitalpH Auto test strip (U)Ordered By: Frankie Paiz on 72-59-3702bD (U)5.5 [pH]5.0-9.0[facility] HospitalBody fluid albumin measurement (mass/volume)Ordered By: Opal Ga on 38-99-8234Wurbige (Body fld) [Mass/Vol]3.5 g/dL3.2-5.5FJoint Township District Memorial HospitalCreatinine and Glomerular filtration rate.predicted panel (S/P/Bld)Ordered By: Opal Ga on 37-56-5428Xodfhxycll [Mass/Vol]1.29 mg/dL 0.64-1.27[facility] HospitalEstimated glomerular filtration rate (GFR) non- AmericanOrdered By: Opal Ga on 09-12-7410OVT/1.73 sq M.predicted among non-blacks MDRD (S/P/Bld) [Vol rate/Area]54 mL/MinSalem City HospitalGlobulin Calc (S) [Mass/Vol]Ordered By: Opal Ga on 71-63-3043Ekxnwavh (S) [Mass/Vol]2.2 g/dLSalem City HospitalNo Panel InformationOrdered By: Opal Ga on 54-96-4589Rtbqzjdrt GFR ()> 60 mL/MinSalem City HospitalComment on above:GFR estimated reference range: According to KDOQI guidelines, <60 ml/min/1.73m2 is sufficient todiagnose a patient with chronic kidney disease.Pharmacy Creatinine Clearance (ChemN/[facility] HospitalProtein [Mass/volume] in Serum or PlasmaOrdered By: Opal Ga on 36-91-0875Ztjzbyg [Mass/Vol]5.7 g/dL 6.1-7.9[facility] Campuserum or plasma alanine aminotransferase measurement without P-5'-P (enzymatic activiOrdered By: Opal Ga on 14-33-9395LVM No additional P-5'-P [Catalytic activity/Vol]19 U/X10-73FktmmjqzoTrinity Health System West Campuserum or plasma albumin/globulin mass ratioOrdered By: Opal Ga on 46-97-9398Hajistk/Globulin [Mass ratio]1.6 {ratio}[facility] Campuserum or plasma alkaline phosphatase measurement (enzymatic activity/volume)Ordered By: Opal Ga on 73-84-6954OEQ [Catalytic activity/Vol]92 U/W89-21AyncarsehTrinity Health System West Campuserum or plasma anion gap determinationOrdered By: Opal Ga on 24-05-4980Tnzjo gap [Moles/Vol]15.3 mmol/L6.0-15.0[facility] Campuserum or plasma aspartate aminotransferase measurement (enzymatic activity/volume)Ordered By: Opal Ga on 74-56-8058IIJ [Catalytic activity/Vol]27 U/H18-22EpnszdetzTrinity Health System West Campuserum or plasma calcium measurement (mass/volume)Ordered By: Opal Ga on 67-34-7183Vlysurh [Mass/Vol]9.6 mg/dL8.2-10.2FJoint Township District Memorial Hospital Serum or plasma chloride measurement (moles/volume)Ordered By: Opal Ga on 86-73-2416Stausmee [Moles/Vol]103 mmol/M09-586ZewrytthwSalem City Hospital Serum or plasma glucose measurement (mass/volume)Ordered By: Opal Ga on 77-06-2170Cjzsgvx [Mass/Vol]84 mg/rL26-945GbxedecrkSalem City Hospital Comment on above:ADA recommended reference rangeRandom Glucose Reference Range is dependent on time and content of last meal. Glucose of more than 200 mg/dL in a nonstressed, ambulatory subject supports the diagnosisof Diabetes Mellitus. Serum or plasma potassium measurement (moles/volume)Ordered By: Opal Ga on 11-78-8327Vndgeejhd [Moles/Vol]4.5 mmol/L3.5-5.1FUniversity Hospitals Elyria Medical Centererum or plasma sodium measurement (moles/volume)Ordered By: Opal Ga on 22-78-3985Kikiwg [Moles/Vol]139 mmol/T531-879UallxoifwSalem City Hospital Serum or plasma total bilirubin measurement (mass/volume)Ordered By: Opal Ga on 42-03-8329Yqnqxcryj [Mass/Vol]1.2 mg/dL0.3-1.2FUniversity Hospitals Elyria Medical Centererum or plasma total carbon dioxide measurement (moles/volume)Ordered By: Opal Ga on 73-10-3101LN4 [Moles/Vol]25.2 mmol/L22.0-30.0[facility] Campuserum or plasma urea nitrogen measurement (mass/volume)Ordered By: Opal Ga on 55-30-1832Xrbh nitrogen [Mass/Vol]16 mg/dL9-[facility] HospitalTS DL <= 0.005 mIU/L QnOrdered By: Opal Ga on 05-04-2170THE Qn 1.83 m[IU]/L0.45-5.33[facility] HospitalThyroxine (T4) free [Mass/volume] in Serum or PlasmaOrdered By: Opal Ga on 30-31-6791Vtsw T4 [Mass/Vol]1.09 ng/dL0.61-1.12[facility] HospitalOffice Visit (Cardiology)on 24-29-5561Dbpfds-up visitDiagnoses/Problems Assessed Non-ischemic cardiomyopathy (425.4) (I42.8) Chronic atrial [...] Former smoker Tobacco Use Screening; Status:Complete; Done: [id number] Patient Instructions By signing my name below, I, Norah Leyva LPN ,Michael, attest that this documentation has been prepared under the direction and in the presence of Dr. Tavo Mcintyre DO. All medical record entries made by the Kimaniibtosha were at my direction and personally dictated by me. Ihave reviewed the chart and agree that the [...] obtain lab results from PCP Chief Complaint TAVO WALLIS is being seen for a 7 [...] of Cardiac catheterization History of Complete colonoscopy [facility] History of Hip replacement History of Knee [...] are negative for com (more content not included)...NormalUH TouchworksTobacco Screening.on [id number] depression screening assessmentNoHighline [facility] [employer] DO Work Phone: Fall risk assessmentb) One or more falls in the last yearHigh[facility] [employer] DO Work Phone: Tobacco use status CPHSb) [facility]ME[facility] [place] 250 DO Work Phone: Tobacco Screening.on 02-14-1945Xemr risk assessmentb) One or more falls in the last yearHigh[facility] 250 DO Work Phone: Tobacco use status CPHSb) NoMEvergreenhealth [facility] [place] 250 DO Work Phone: Vital Signs Date TimeVital SignValuePerforming [id number] 14:46-0400Heart rate95 /minOpal Ga DO Work Phone: [facility]10-14-2025 14:46-0400 Respiratory rate20 /minOpal Ga DO Work Phone: [phone]10-14-2025 12:00-0400 Body jbvpbkqoulc74.8 [degF]Opal Ga DO Work Phone: [phone]10-14-2025 12:00-0400 Diastolic blood cxpqduan30 mm[Hg]Opal Ga DO Work Phone: [address] [place], [place] 2686610-14-2025 12:00-0400 SaO2% (BldA) [Mass fraction]94 %Opal Ga DO Work Phone: [facility]10-14-2025 12:00-0400 Systolic blood xqgekgac924 mm[Hg]Opalamadou Ga DO Work Phone: [facility]10-14-2025 05:59-0400 Body hlnyjk26 kgOpal aG DO Work Phone: [facility]10-09-2025 13:08-0400 Body vepwnz168.64 cmOpal Ga DO Work Phone: [facility]10-08-2025 16:05-0400 Diastolic blood racgpljz17 mm[Hg]PHYSICIAN NO [facility]10-08-2025 16:05-0400Heart rate97 /minPHYSICIAN [facility]10-08-2025 16:05-0400Respiratory rate16 /minPHYSICIAN [facility]10-08-2025 16:05-7031SvQ8% (BldA) [Mass fraction]100 %PHYSICIAN NO [facility]10-08-2025 16:05-0400Systolic blood dulxeqbc534 mm[Hg]PHYSICIAN NO [facility]10-08-2025 12:10-0400Body .64 cmPHYSICIAN [facility]10-08-2025 12:10-0400Body bckyzhllnfi64.2 [degF]PHYSICIAN [facility]10-08-2025 12:10-0400 Body xjretf70.4 kgPHYSICIAN [facility]09-30-2025 08:56-0400Body .64 cmPHYSICIAN [facility]09-30-2025 08:56-0400Body nopfko68 kgPHYSICIAN [facility]08-06-2025 08:00-0400Body shbozqvxexx29.6 [degF]Melvi Hindsb COTTRELL OPERATOR Work Phone: [address] [place], [place] 7613708-06-2025 08:00-0400 Diastolic blood ajgpxooh97 mm[Hg]Melvi Kiera COTTRELL OPERATOR Work Phone: [facility]08-06-2025 08:00-0400 Heart rate67 /minAmanda Kiera COTTRELL OPERATOR Work Phone: [facility]08-06-2025 08:00-0400 Respiratory rate18 /minAmanda Kiera COTTRELL OPERATOR Work Phone: [facility]08-06-2025 08:00-0400 SaO2% (BldA) [Mass fraction]93 %Melvi Kiera COTTRELL OPERATOR Work Phone: [facility]08-06-2025 08:00-0400 Systolic blood hnbagcvu45 mm[Hg]Melvi Kiera COTTRELL OPERATOR Work Phone: [address] [place], [place] 7613708-06-2025 06:11-0400 Body .4 kgAmanda Kiera COTTRELL OPERATOR Work Phone: 1(184)086-[address] [place], [place] 2627508-03-2025 03:35-0400 Inhaled oxygen flow rate2 L/minAmanda Kiera COTTRELL OPERATOR Work Phone: [phone]([phone]08-02-2025 14:03-0400 Body jxfnle199.48 cmAmanda Kiera COTTRELL OPERATOR Work Phone: 1(589)[address]08-01-2025 22:55-0400 Diastolic blood ixyaxvel37 mm[Hg]Melvi Kiera COTTRELL OPERATOR Work Phone: 1(727)[address]08-01-2025 22:55-0400 Heart eyvd215 /minAmanda Kiera COTTRELL OPERATOR Work Phone: 1([phone] [address] [place], [place] 7613708-01-2025 22:55-0400 Respiratory rate20 /minAmanda Kiera COTTRELL OPERATOR Work Phone: [address] [place], [place] 7613708-01-2025 22:55-0400 SaO2% (BldA) [Mass fraction]98 %Melvi Kiera COTTRELL OPERATOR Work Phone: 1(828)125-[address] [place], [place] 2627508-01-2025 22:55-0400 Systolic blood bultmhlu802 mm[Hg]Melvi Kiera COTTRELL OPERATOR Work Phone: 1(333)818-[address] [place], [place] 2627508-01-2025 17:56-0400 Body gyagny775.48 cmAmanda Kiera COTTRELL OPERATOR Work Phone: 1(655)093-[address] [place], [place] 2627508-01-2025 17:56-0400 Body ylnouvownpt84.7 [degF]Melvi Kiera COTTRELL OPERATOR Work Phone: 1(319)381-[address] [place], [place] 2627508-01-2025 17:56-0400 Body mxmlpu93.1 kgAmanda Kiera COTTRELL OPERATOR Work Phone: [phone]07-31-2025 14:00-0400 Body czkowa170.48 cmAmanda Kiera COTTRELL OPERATOR Work Phone: [facility]07-31-2025 14:00-0400 Body ydisopkeqkr46.2 [degF]Melvi Kiera COTTRELL OPERATOR Work Phone: [facility]07-31-2025 14:00-0400 Diastolic blood dqflinka20 mm[Hg]Melvi Kiera COTTRELL OPERATOR Work Phone: [facility]07-31-2025 14:00-0400 Heart rate43 /minAmanda Kiera COTTRELL OPERATOR Work Phone: [facility]07-31-2025 14:00-0400 Systolic blood uqthgpai935 mm[Hg]Melvi Kiera COTTRELL OPERATOR Work Phone: [phone]05-13-2025 11:27-0400 Body jznowepxiwm63.7 [degF]Melvi Kiera COTTRELL OPERATOR Work Phone: [facility]05-13-2025 11:27-0400 Diastolic blood drrcodxw05 mm[Hg]Melvi Kiera COTTRELL OPERATOR Work Phone: [facility]05-13-2025 11:27-0400 Heart rate83 /minAmanda Kiera COTTRELL OPERATOR Work Phone: [facility]05-13-2025 11:27-0400 Respiratory rate18 /minAmanda Kiera COTTRELL OPERATOR Work Phone: [phone]05-13-2025 11:27-0400 SaO2% (BldA) [Mass fraction]99 %Melvi Kiera COTTRELL OPERATOR Work Phone: [facility]05-13-2025 11:27-0400 Systolic blood puhdnowx007 mm[Hg]Melvi Kiera COTTRELL OPERATOR Work Phone: [facility]05-13-2025 06:00-0400 Body zhrahj98.1 kgAmanda Kiera COTTRELL OPERATOR Work Phone: [facility]05-09-2025 16:26-0400 Body .64 cmAmanda Kiera COTTRELL OPERATOR Work Phone: 1(149)136-[address] [place], [place] 2627505-09-2025 04:00-0400 Inhaled oxygen flow rate2 L/minAmanda Kiera COTTRELL OPERATOR Work Phone: 1(563)246-[address] [place], [place] 2627505-08-2025 19:00-0400 Diastolic blood fqlrjure13 mm[Hg]Melvi Kiera COTTRELL OPERATOR Work Phone: [address] [place], [place] 7613705-08-2025 19:00-0400 Heart wmks167 /minAmanda Kiera COTTRELL OPERATOR Work Phone: 1(890)468-[address] [place], [place] 2627505-08-2025 19:00-0400 Inhaled oxygen flow rate2 L/minAmanda Kiera COTTRELL OPERATOR Work Phone: [address] [place], [place] 7613705-08-2025 19:00-0400 Respiratory rate24 /minAmanda Kiera COTTRELL OPERATOR Work Phone: [address] [place], [place] 7613705-08-2025 19:00-0400 SaO2% (BldA) [Mass fraction]95 %Melvi Kiera COTTRELL OPERATOR Work Phone: 1(099)996-[address] [place], [place] 2627505-08-2025 19:00-0400 Systolic blood ujstlpln902 mm[Hg]Melvi Kiera COTTRELL OPERATOR Work Phone: [address] [place], [place] 7613705-08-2025 14:38-0400 Body vsgyjv772.64 cmAmanda Kiera COTTRELL OPERATOR Work Phone: 1(730)059-[address] [place], [place] 2627505-08-2025 14:38-0400 Body mtxbdzxrala65.2 [degF]Melvi Kiera COTTRELL OPERATOR Work Phone: [address] [place], [place] 7613705-08-2025 14:38-0400 Body aeeggw081.2 kgAmanda Kiera COTTRELL OPERATOR Work Phone: 1(489)080-[address] [place], [place] 2627502-20-2025 12:09-0500 Body nksytfbaqxb34.1 [degF]Partha Gabriel DPM Work Phone: [facility]02-20-2025 12:09-0500Diastolic blood hymuhbgq86 mm[Hg]Partha Smartert DPM Work Phone: [facility]02-20-2025 12:09-0500Heart rate78 /min Partha Harvey DPM Work Phone: [facility]02-20-2025 12:09-0500Respiratory rate 18 /minVidyakhurram Gabriel DPM Work Phone: [facility]02-20-2025 12:09-9900DqC8% (BldA) [Mass fraction]98 %Partha Gabriel DPM Work Phone: [facility]02-20-2025 12:09-0500Systolic blood sjzdafqo229 mm[Hg]Partha Smartert DPM Work Phone: [facility]01-09-2025 16:16-0500Body temperature 97.9 [degF]Opal Tjs DO Work Phone: [facility]01-09-2025 16:16-0500 Diastolic blood oiepnhku25 mm[Hg]Opal Sparkss DO Work Phone: [facility]01-09-2025 16:16-0500 Heart rate79 /minEdmondamadou Kuns DO Work Phone: [facility]01-09-2025 16:16-0500 Respiratory rate18 /minEdmondamadou Kuns DO Work Phone: [facility]01-09-2025 16:16-0500 SaO2% (BldA) [Mass fraction]94 %Opal Sparkss DO Work Phone: [facility]01-09-2025 16:16-0500 Systolic blood agstjrjh178 mm[Hg]Opal Sparkss DO Work Phone: [facility]01-09-2025 04:08-0500 Body .7 kgOpal Ga DO Work Phone: 1(475)6-[address] [place], [place] 6206901-07-2025 12:58-0500 Body qujsyf159.64 cmOpal Ga DO Work Phone: 2(566)2-[address] [place], [place] 6206901-04-2025 13:32-0500 Diastolic blood mvrabnko86 mm[Hg]Opal Ga DO Work Phone: 1(175)6-[address] [place], [place] 6206901-04-2025 13:32-0500 Heart rate58 /minOpal Ga DO Work Phone: 5(967)5-[address] [place], [place] 6206901-04-2025 13:32-0500 SaO2% (BldA) [Mass fraction]96 %Opal Ga DO Work Phone: 4(105)[address]01-04-2025 13:32-0500 Systolic blood qihkjbsh028 mm[Hg]Opal Ga DO Work Phone: 1(004)[address]01-04-2025 11:19-0500 Respiratory rate18 /minOpal Ga DO Work Phone: 0(503)5-[address] [place], [place] 6206901-04-2025 09:52-0500 Body xkqmew936.64 cmOpal Ga DO Work Phone: 6(377)[address]01-04-2025 09:52-0500 Body fskglbieyiq47.6 [degF]Opal Ga DO Work Phone: 2(829)[address] [place], [place] 6206901-04-2025 09:52-0500 Body smurwb12.6 kgOpal Ga DO Work Phone: 8(371)8-[address] [place], [place] 6206912-23-2024 10:46-0500 Body .01 [degF]Randi Burris MD Work Phone: [facility]12-23-2024 10:46-0500Diastolic blood vfwehkdk13 mm[Hg]Randi Burris MD Work Phone: [address] [place], [place] 5472412-23-2024 10:46-0500Heart rate95 /Joseph Burris MD Work Phone: [facility]12-23-2024 10:46-0500 Respiratory rate18 /Joseph Burris MD Work Phone: [facility]12-23-2024 10:46-1326YkZ9% (BldA) [Mass fraction]96 %Randi Burris MD Work Phone: [facility]12-23-2024 10:46-0500Systolic blood mm[Hg]Randi Burris MD Work Phone: [facility]12-17-2024 07:45-0500Body yqpvmp149.6 cmSmitali Burris MD Work Phone: [facility]12-17-2024 07:45-0500Body mass index (BMI) [Ratio]30.7 kg/s6RdfmavRandi Burris MD Work Phone: [facility]12-17-2024 07:45-0500Body loaxpj63.27 kgRandi Burris MD Work Phone: [facility]12-12-2024 15:20-0500Body ojrndt085.6 cmTavo Mcintyre DO Work Phone: [facility]12-12-2024 15:20-0500 Body mass index (BMI) [Ratio]30.83 kg/r5WkkvtizTavo Mcintyre DO Work Phone: [facility]12-12-2024 15:20-0500 Body mmeuct84.64 kgWisalvatore Mcintyre DO Work Phone: [facility]12-12-2024 15:20-0500 Diastolic blood rpsujtxu49 mm[Hg]Tavo Mcintyre DO Work Phone: [facility]12-12-2024 15:20-0500 Heart xfyh611 /Neel Mcintyre DO Work Phone: [facility]12-12-2024 15:20-0500 Systolic blood nwkofxbz140 mm[Hg]Tavo Mcintyre DO Work Phone: [facility]12-09-2024 09:35-0500 Body .64 cmOpal Ga DO Work Phone: [facility]12-09-2024 09:35-0500 Body mass index (BMI) [Ratio]30.7 kg/j5NahvfOpal Sparkss DO Work Phone: 1(800)0-[address] [place], [place] 6206912-09-2024 09:35-0500 Body .18 kgOpal Ga DO Work Phone: 1(299)[address]12-09-2024 09:35-0500 Diastolic blood uessbahq95 mm[Hg]Opal Sparksmyranda DO Work Phone: [phone]([phone]12-09-2024 09:35-0500 Heart rate51 /Ann Ga DO Work Phone: 1(782)0-[address] [place], [place] 2686612-09-2024 09:35-0500 Respiratory rate18 /minOpal Ga DO Work Phone: 1([phone]50[facility]12-09-2024 09:35-0500 SaO2% (BldA) [Mass fraction]95 %Opal Ga DO Work Phone: 1(042)6-[address] [place], [place] 6206912-09-2024 09:35-0500 Systolic blood lnwoqgiv640 mm[Hg]Opalamadou Sparkss DO Work Phone: 1(621)3-[address] [place], [place] 6206910-22-2024 12:47-0400 Body mhashc080.64 cm[facility]10-22-2024 12:47-0400Body mass index (BMI) [Ratio]28.8 kg/a6AznzmhdwxSal[facility]10-22-2024 12:47-0400Body .19 kg[facility]10-22-2024 12:47-0400Diastolic blood mm[Hg][facility] 12-27-2023 12:47-0400Heart rate78 /[facility] 12-27-2023 12:47-0400Respiratory rate16 /[facility] 12-27-2023 12:47-6934ZaV6% (BldA) [Mass fraction]99 %[facility]10-22-2024 12:47-0400Systolic blood hxjdkbil783 mm[Hg][facility]07-17-2024 10:00-0400Body eaaqse543.64 cmDO Opal Ga Work Phone: [facility]07-17-2024 10:00-0400 Body mass index (BMI) [Ratio]29.8 kg/m2DO Opal Ga Work Phone: [facility]07-17-2024 10:00-0400 Body ssmpuu79.91 kgDO Opal Ga Work Phone: [facility]07-17-2024 10:00-0400 Diastolic blood lkmcoopu30 mm[Hg]DO Opal Ga Work Phone: [facility]07-17-2024 10:00-0400 Heart rate72 /MariAmrik Ga Work Phone: [facility]07-17-2024 10:00-0400 Respiratory rate16 /Annelise Ga Work Phone: [facility]07-17-2024 10:00-0400 Systolic blood vtatgeye509 mm[Hg]DO Opal Ga Work Phone: [facility]05-08-2024 10:30-0400 Diastolic blood qztyjmlz29 mm[Hg]Tavo Mcintyre DO Work Phone: [facility]05-08-2024 10:30-0400 Systolic blood roehhraz832 mm[Hg]Tavo Mcintyre DO Work Phone: [facility]05-08-2024 09:57-0400 Body .6 cmTavo Mcintyre DO Work Phone: [facility]05-08-2024 09:57-0400 Body mass index (BMI) [Ratio]29.8 kg/v0DlzpovdTavo Carodon DO Work Phone: [facility]05-08-2024 09:57-0400 Body .73 kgWisalvatore Carodon DO Work Phone: [facility]05-08-2024 09:57-0400 Heart rate60 /minWisalvatore Mcintyre DO Work Phone: [facility]01-12-2024 09:15-0500 Body .64 cmOpal Ga Other [facility] Other 01-12-2024 09:15-0500Body mass index (BMI) [Ratio]29.7 kg/s6TscgcOpal Ga Other [facility] Other 01-12-2024 09:15-0500Body pjgudv93.46 kgEdmondamadou jTmyranda Other [facility]idi Other 01-12-2024 09:15-0500Diastolic blood cwsdbcos54 mm[Hg] Opal Ga Other [facility] Other 01-12-2024 09:15-0500Respiratory rate16 /minOpal Ga Other [facility] Other 01-12-2024 09:15-5254BoZ6% (BldA) [Mass fraction]97 % Opal Ga Other [facility] Other 01-12-2024 09:15-0500Systolic blood ctdifmll367 mm[Hg] Opal Ga Other [facility] Other 07-12-2023 09:15-0400Body .64 cmOpal Ga Other [facility] Set[facility] Other 07-12-2023 09:15-0400Body mass index (BMI) [Ratio] 28.11 kg/k2XobrrOpal Ga Other [facility] 07-12-2023 09:15-0400Body kojyup52.02 kgOpal Ga Other [facility] 07-12-2023 09:15-0400Diastolic blood ajmjjnbv11 mm[Hg] Opal Ga Other [facility] Other 07-12-2023 09:15-0400Respiratory rate16 /minOpal Ga Other [facility] 07-12-2023 09:15-4874WuC6% (BldA) [Mass fraction]96 % Opal Ga Other [facility] Other 07-12-2023 09:15-0400Systolic blood lrguvsnc218 mm[Hg] Opal Ga Other [facility] Other 05-03-2023 09:36-0400Body obbxvo629.64 cmOpal Ga Work Phone: 1(482) [phone]-[facility] 250 DO Work Phone: 1(239) 802-922305-03-2023 09:36-0400Body mass index (BMI) [Ratio] 28.89 kg/q9LponpOpal Ga Work Phone: [phone]-Uggbl [place] [facility] 250 DO Work Phone: 1(385) 992-512005-03-2023 09:36-0400Body surface area Derived from formula1.91 a7DltytOpal Ga Work Phone: [phone]-Xfsqb [place] [facility] 250 DO Work Phone: 1(964) 379-341605-03-2023 09:36-0400Body inpiap93.19 kgEdmondamadou Ga Work Phone: 1(307) 133-3845328-7138WD-Nnsmx [place] [facility] 250 DO Work Phone: 1(658) 731-358105-03-2023 09:36-0400Diastolic blood cgvdoosq40 mm[Hg] Opal Ga Work Phone: 1(287) [phone]-Zwfpr [place] [facility] 250 DO Work Phone: 1(539) 506-766805-03-2023 09:36-0400Heart rate76 /minBryamadou Ga Work Phone: 1(299) [phone]-Nvwtq [place] [facility] 250 DO Work Phone: 1(210) 119-584705-03-2023 09:36-0400Systolic blood xwejtkca282 mm[Hg] Opal Ga Work Phone: 1(323) [phone]-Wbluc [place] [employer] 250 DO Work Phone: 1(456) 781-617604-03-2023 10:15-0400Body bcmedl324.64 cmOpal Tjmyranda Other no[facility]ou[facility] Other 04-03-2023 10:15-0400Body mass index (BMI) [Ratio]29.7 kg/v3PdyxjOpal Ga Other [facility] Other 04-03-2023 10:15-0400Body adtbmm74.46 kgOpal Ga Other [facility] Other 04-03-2023 10:15-0400Diastolic blood evxwaapw86 mm[Hg] Opal Sparksmyranda Other [facility] Other 04-03-2023 10:15-0400Respiratory rate16 /minOpal Daily Other [facility] Other 04-03-2023 10:15-8703YtA3% (BldA) [Mass fraction]96 % Opal Sparksmyranda Other [facility] Other 04-03-2023 10:15-0400Systolic blood vjtkdhah296 mm[Hg] Opal Tjmyranda Other [facility] Other 01-04-2023 14:47-0500Body lvueeb982.64 cmOpal Ga Work Phone: 1(881) [phone]-Ubkaw [place] [facility] 250 DO Work Phone: 1(167) 426-402001-04-2023 14:47-0500Body mass index (BMI) [Ratio] 30.18 kg/s5UiywgOpal Ga Work Phone: 1(778) [phone]-Prhku [place] [employer] 250 DO Work Phone: 1(151) 389-135801-04-2023 14:47-0500Body surface area Derived from formula1.94 z5AojzzOpal Ga Work Phone: 1(711) [phone]-Vbosj [place] [employer] 250 DO Work Phone: 1(154) 399-449301-04-2023 14:47-0500Body hlovrg72.82 kgEdmondamadou Ga Work Phone: 1(108) [phone]-Jszld [place] [employer] 250 DO Work Phone: 1(277) 939-426701-04-2023 14:47-0500Diastolic blood wkzjecwy97 mm[Hg] Opal P Kuns Work Phone: [phone]-Vnlkl [place] [employer] [facility] 250 DO Work Phone: 1(102) [phone] 14:47-0500Heart rate72 /minOpal Sparkss Work Phone: [phone]-Cywwj [place] [employer] 250 DO Work Phone: 1(905) 512-432701-04-2023 14:47-0500Systolic blood owyuypgw355 mm[Hg] Opal Ga Work Phone: [phone]-Lrhow [place] [employer] [facility] 250 DO Work Phone: 1(226) 353-494801-03-2023 13:30-0500Body gufsyb758.24 cmOpal Ga Other [facility] Other 01-03-2023 13:30-0500Body mass index (BMI) [Ratio] 42.82 kg/t4MeporOpal Ga Other [facility] Other 01-03-2023 13:30-0500Body okndnn43.64 kgOpal Ga Other [facility] Other 01-03-2023 13:30-0500Diastolic blood qqpigjkc57 mm[Hg] Opal Ga Other [facility] Other 01-03-2023 13:30-0500Respiratory rate16 /minOpal Ga Other [facility] Other 01-03-2023 13:30-6218FtX2% (BldA) [Mass fraction]96 % Opal Ga Other [facility] Other 01-03-2023 13:30-0500Systolic blood vwniiwzo176 mm[Hg] Opal Ga Other [facility] Other 12-06-2022 15:45-0500Body dkcoqy033.24 cmOpal Sparksmyranda Other [facility] Other 12-06-2022 15:45-0500Body mass index (BMI) [Ratio] 44.92 kg/g8LuxpoOpal Ga Other [facility] Other 12-06-2022 15:45-0500Body xzgyss10.9 kgEdmondamadou Ga Other [facility] Other 12-06-2022 15:45-0500Diastolic blood hwijfjny98 mm[Hg] Opal Ga Other [facility] Other 12-06-2022 15:45-0500Respiratory rate16 /minEdmondamadou Ga Other [facility] Other 12-06-2022 15:45-8980YmP9% (BldA) [Mass fraction]98 % Opal Ga Other [facility] Other 12-06-2022 15:45-0500Systolic blood ywdedsey033 mm[Hg] Opal Ga Other [facility] Other 11-12-2022 11:37-0500Body pmudginnore27.1 [degF]DO Opal Ga Work Phone: [facility]11-12-2022 11:37-0500 Diastolic blood mm[Hg]DO Opal Ga Work Phone: [facility]11-12-2022 11:37-0500 Heart rate79 /minDO Opal Ga Work Phone: [facility]11-12-2022 11:37-0500 Respiratory rate16 /Annelise Ga Work Phone: [facility]11-12-2022 11:37-0500 SaO2% (BldA) [Mass fraction]97 %DO Opal Ga Work Phone: [facility]11-12-2022 11:37-0500 Systolic blood uygtwrac634 mm[Hg]DO Opal Ga Work Phone: [facility]11-12-2022 04:10-0500 Body .5 kgDO Opal Ga Work Phone: 1(661)711-[address] [place], [place] 6206911-09-2022 16:00-0500 Inhaled oxygen flow rate1 L/Annelise Ga Work Phone: [address] [place], [place] 2686611-07-2022 13:55-0500 Body prfutx043.64 cmDO Opal Ga Work Phone: [facility]11-05-2022 14:00-0400 Diastolic blood pzvgdsos94 mm[Hg]DO Opal Ga Work Phone: [facility]11-05-2022 14:00-0400 Heart rate67 /Annelise Ga Work Phone: [facility]11-05-2022 14:00-0400 Inhaled oxygen flow rate3 L/Annelise Ga Work Phone: [facility]11-05-2022 14:00-0400 Respiratory rate19 /Annelise aG Work Phone: [facility]11-05-2022 14:00-0400 SaO2% (BldA) [Mass fraction]99 %DO Opal Ga Work Phone: [facility]11-05-2022 14:00-0400 Systolic blood xurwxhnl680 mm[Hg]DO Opal Ga Work Phone: [facility]11-05-2022 09:41-0400 Body qeacnyhrwfy58.2 [degF]DO Opal Ga Work Phone: [facility]11-05-2022 09:38-0400 Body .64 cmDO Opal Ga Work Phone: [facility]11-05-2022 09:38-0400 Body ekibna23 kgDO Opal Ga Work Phone: [facility]11-03-2022 13:45-0400 Body woyioe250.24 cmOpal Ga Other [facility] Other 11-03-2022 13:45-0400Body mass index (BMI) [Ratio] 48.42 kg/e5Zthbe Tjmyranda Other [facility] Other 11-03-2022 13:45-0400Body huxlgp58.98 kgOpal Ga Other [facility] Other 11-03-2022 13:45-0400Diastolic blood enqztwhg45 mm[Hg] Opal Ga Other [facility] Other 11-03-2022 13:45-0400Respiratory rate16 /minOpal Tjmyranda Other [facility] Other 11-03-2022 13:45-1690BzS2% (BldA) [Mass fraction]94 % Opal Ga Other [facility] Other 11-03-2022 13:45-0400Systolic blood hhofczsj276 mm[Hg] Opal Ga Other [facility] Other 08-08-2022 09:00-0400Body heightEdmondamadou Tjmyranda Other [facility] Other 08-08-2022 09:00-0400Body mass index (BMI) [Ratio] 32.83 kg/q9UqpdqOpal Ga Other [facility] Other 08-08-2022 09:00-0400Body yqujdn11.26 kgOpal Ga Other [facility] Other 08-08-2022 09:00-0400Diastolic blood wdnkvfqa80 mm[Hg] Opal Ga Other [facility] Other 08-08-2022 09:00-0400Respiratory rate16 /minOpal Ga Other rimidi Other 08-08-2022 09:00-7786ElO4% (BldA) [Mass fraction]95 % Opal Ga Other rimidi Other 08-08-2022 09:00-0400Systolic blood rqbtoxnj209 mm[Hg] Opal Ga Other rimidi Other 07-08-2022 10:00-0400Body heightEdmondamadou Tjmyranda Other rimidi Other 07-08-2022 10:00-0400Diastolic blood ptomdsui12 mm[Hg] Opal Ga Other rimidi Other 07-08-2022 10:00-0400Respiratory rate16 /minOpal Ga Other rimidi Other 07-08-2022 10:00-2635ZlX1% (BldA) [Mass fraction]96 % Opal Ga Other Demorest Setred Other 07-08-2022 10:00-0400Systolic blood mm[Hg] Opal Ga Other Demorest Setred Other 06-27-2022 12:00-0400Body heightOpal Ga Other Demorest Setred Other 06-27-2022 12:00-0400Diastolic blood rnomnarr15 mm[Hg] Opal Ga Other Demorest Setred Other 06-27-2022 12:00-0400Systolic blood fiejkjux148 mm[Hg] Opal Ga Other Demorest Setred Other 05-31-2022 14:17-0400Body .64 cmOpal Sparksmyranda Work Phone: [phone]-Aaukp [facility] [address] DO Work Phone: 1(626) 102-329905-31-2022 14:17-0400Body mass index (BMI) [Ratio] 33.09 kg/s4UseamOpal Sparkss Work Phone: [id number]-Hbmac [facility] [address] DO Work Phone: 1(959) 313-468405-31-2022 14:17-0400Body surface area Derived from formula2.02 u2ObuxpOpal Sparkss Work Phone: [phone]-Vwkwh [facility] [address] DO Work Phone: 1(701) 451-931805-31-2022 14:17-0400Body .99 kgOpal Sparksmyranda Work Phone: [phone]-Fblcr [facility] [address] DO Work Phone: 1(493) 296-436305-31-2022 14:17-0400Diastolic blood jucnyymz36 mm[Hg] Opal Ga Work Phone: [phone]-Tqnsl [facility] [address] DO Work Phone: 1(508) 958-827805-31-2022 14:17-0400Heart rate54 /minOpal Sparkss Work Phone: [phone]-Axnon [facility] [address] DO Work Phone: 1(814) 650-193505-31-2022 14:17-0400Systolic blood rhibziqj826 mm[Hg] Opal Ga Work Phone: [phone]-Mafsx [facility] [address] DO Work Phone: 1(772) 750-796511-15-2021 09:30-0500Body heightOpal Ga Other rimidi Other 11-15-2021 09:30-0500Body mass index (BMI) [Ratio] 33.67 kg/q6IjmfpOpal Ga Other rimidi Other 11-15-2021 09:30-0500Body xbeyfp11.62 kgOpal Ga Other rimidi Other 11-15-2021 09:30-0500Diastolic blood higceumo32 mm[Hg] Opal Ga Other rimidi Other 11-15-2021 09:30-0500Respiratory rate16 /minOpal Ga Other rimidi Other 11-15-2021 09:30-0961JcI4% (BldA) [Mass fraction]96 % Opal [facility]myranda [facility] Other 11-15-2021 09:30-0500Systolic blood pkptxoav712 mm[Hg] Opal Ga Other Demorest Setred Other 11-01-2021 15:22-0400Body .64 cmOpal Myers Daily Work Phone: [phone]-Sywjl [place] [facility]-Ameena 250 DO Work Phone: 1([phone]) 800-596611-01-2021 15:22-0400Body mass index (BMI) [Ratio] 33.25 kg/o5UecxyOpal Ga Work Phone: [phone]-Sofzo [place] [facility] 250 DO Work Phone: 1(685) 271-115811-01-2021 15:22-0400Body surface area Derived from formula2.03 r9Wtrkf Louis Ga Work Phone: [phone]) [phone]-Ubltt [place] [facility]ena 250 DO Work Phone: 1(664) [phone] 15:22-0400Body wuraio01.44 kgOpal Myers Daily Work Phone: 1([phone]) [phone]-Yuutw [place] [facility] 250 DO Work Phone: 1(384) 351-296711-01-2021 15:22-0400Diastolic blood kxamthvx73 mm[Hg] Opal Ga Work Phone: [phone]-Djeky [place] [facility] 250 DO Work Phone: 1(877) [phone] 15:22-0400Heart rate56 /minOpal Ga Work Phone: [phone]) [phone]-Jhjhx [place] [facility] 250 DO Work Phone: 1(297) 300-177211-01-2021 15:22-0400Systolic blood byxufovx379 mm[Hg] Opal P Kuns Work Phone: [phone]-Onkdl [place] [facility] 250 DO Work Phone: Encounters Encounter DateEncounter TypeCare ProviderFacilityStart: 09-72-1355Uwgze Massouh MD-[facility] Work Phone: Start: 12-30-2024 End: 38-54-0741qunlbnnokvNldbm Daily DO Work Phone: -[facility] [facility]Start: 12-30-2024 End: 89-32-7046Qeqz Vinton M DO-[facility]ospStart: 12-27-2024 End: 41-71-6084ixmdvzxrqsGwfkn Kuns DO Work Phone: -[facility]ospStart: 12-27-2024 End: 00-21-6666Xdaqvkyw ReferredMelissa Vidya Marker DO-[facility] [place] [facility]ospStart: 75-65-1844Qhe-patient / Non-visit(Maki) Cristy FATIMA-[facility] Work Phone: Start: 12-27-2024 End: 14-78-5160Yqrfueb Jane Marker DO-[facility]ospStart: 12-12-2024 End: 16-34-3522Dbirwgneih and management of inpatientFrederbronson Mccartney MD-[facility] Work Phone: Start: 12-12-2024 End: 60-77-3525Kugun Prasad MD-[facility] Work Phone: Start: 12-04-2024 End: 66-89-6497Yfxgokw encounter procedureElenandrés Montoya COTTRELL OPERATOR-[facility] [place] Work Phone: Start: 12-04-2024 End: 21-67-5863PxgoqKeely Montoya COTTRELL OPERATOR-[facility] [place] Work Phone: Start: 12-04-2024 End: 99-46-7193waqnvuvjjyZKXSJMSTH NO [facility]ILYFire[facility] Work Phone: Start: 11-29-2024 End: 07-38-5896Ajydlkv encounter procedureKeely Montoya [facility] Work Phone: Start: 11-29-2024 End: 29-60-3213XrujbKeely Montoya [facility] Work Phone: Start: 11-29-2024 End: 50-18-8748hvhnzqulgiXOYKTLFSW NO [facility] Work Phone: Start: 11-06-2024 End: 29-40-8981vfwxlenfpjSpaca Tjs DO Work Phone: [facility] Work Phone: Start: 11-06-2024 End: 32-55-6762Ejrwnjn encounter procedureKeely Montoya [facility] Work Phone: start: 11-06-2024 End: 39-51-9764Y[facility]obaSpooner Health Work Phone: start: 10-31-2024 End: 55-07-4149KzpvJovany Stovall MD-CT [facility] [place] Work Phone: Start: 10-31-2024 End: 24-78-6334xzdbyxpmntAkzxl Kuns DO Work Phone: [facility] Work Phone: Start: 10-31-2024 End: 14-11-7891Eizuesn encounter procedureJovany Stovall MD-CT [facility] [place] Work Phone: Start: 10-07-2024 End: 73-42-6951Qlqaimmbtk and management of inpatientAmanda M Kiera COTTRELL OPERATOR Work Phone: [facility] Work Phone: Start: 10-07-2024 End: 72-03-0667Syapbxx R. Frings DO-[facility] [place] Work Phone: Start: 67-92-6138Son-patient / Non-visitDafrederic Stovall [facility] Work Phone: start: 46-11-5717XnpnJovany Stovall MDQu[facility] Neurosurgery Work Phone: start: 18-59-8654Yty-patient / Non-visitMickari Reynolds MDQu[facility] Infect Dis Work Phone: Start: 39-02-6526CqbnspaFrankie Reynolds MDQu[facility] Work Phone: Start: 06-86-2725Xed-patient / Non-visitDafrederic Stovall MDQu[facility] Neurosurgery Work Phone: start: 73-62-1182ekbydsjxjiq encounterMelvi Fink Kiera COTTRELL OPERATOR Work Phone: [facility] Work Phone: Start: 60-06-3792Vowvzqv R. Estuardongs DO-3 [place] [place] [facility] Work Phone: Start: 10-04-2024 End: 50-07-5739ocvoksefyuXigcqh M Kiera COTTRELL OPERATOR Work Phone: [facility] Work Phone: Start: 10-04-2024 End: 13-86-5168Gfiockg encounter procedureMickari Reynolds MDQu[facility] Infect Dis Work Phone: Start: 10-04-2024 End: 01-46-2888SofvctoFrankie Reynolds MDQu[facility] Infect Dis Work Phone: Start: 09-24-2024 End: 45-44-7457Hmzxggx encounter procedureW Be Mcintyre [facility] Work Phone: Start: 09-24-2024 End: 09-24-2024W Be Mcintyre DO-Lab [facility] Work Phone: Start: 09-24-2024 End: 96-80-2083eybiyczeonRreopx M Kiera COTTRELL OPERATOR Work Phone: [facility] Work Phone: Start: 09-18-2024 End: 90-73-1456lktdjfhsmxLglvcs Scott Kiera COTTRELL OPERATOR Work Phone: [facility] Work Phone: Start: 09-18-2024 End: 87-24-3056Iybazcs encounter procedureKeely [facility]South[facility] Work Phone: start: 09-18-2024 End: 77-43-5573Ujgwf [facility] Work Phone: start: 09-14-2024 End: 36-18-6831miphqgqprgLjqsok M Kiera COTTRELL OPERATOR Work Phone: [facility] Work Phone: Start: 09-14-2024 End: 34-79-7094Cfkdxjp encounter procedureOpal Ga P DO-Lab [facility] Work Phone: Start: 09-14-2024 End: 02-84-9355Jyltz Kuns P DO-Lab [facility] Work Phone: Start: 08-27-2024 End: 99-74-7604Orgdzcw encounter procedureBryamadou Sparkss P DO-Lab [facility] Work Phone: Start: 08-27-2024 End: 01-05-8323Tvvur Kuns P DO-Lab [facility] Work Phone: Start: 08-27-2024 End: 61-28-2496inanqnesgyTkhbw KunsFacility:[facility] Start: 12-19-4026qmhctxfwbhDlcfabjfhRichard PompaFacility:Infectious DiseaseStart: 20-17-0981farsdsylkrWxgedb J GaleaFacility:EU [place]uskyStart: 07-23-2024 End: 08-05-2512hfhmdhylkcIhbfzc R BuntingFacility:[facility] Campustart: 07-23-2024 End: 23-51-1589Pupbpxm encounter procedureDarrin Ray [facility] DO-Lab [facility] Work Phone: Start: 07-23-2024 End: 06-43-6466Nqjdxn Ray [facility] DO-Lab [facility] Work Phone: Start: 2024 End: 18-31-5279Drludqxw Result EncounterFredric H Itjo annkowitz DO Work Phone: [facility] External Department UnsolicitedStart: 2024 End: 44-28-9699Hwdkuadt Result EncounterFredric H Itzkowitz DO Work Phone: [facility] External Department UnsolicitedStart: 2024 Non-patient / Non-visitMichael Myranda Reynolds MD-[facility] Work Phone: Start: 91-07-0124Znfhhp Kiera COTTRELL OPERATOR Work Phone: [facility] Work Phone: Start: 07-12-2024 End: 48-50-3446Vrljwczllo and management of inpatientAmanda M Kiera COTTRELL OPERATOR Work Phone: [facility] Work Phone: Start: 07-12-2024 End: 22-01-0483Wjdocv Kiera COTTRELL OPERATOR Work Phone: [facility] [place] [facility] Work Phone: Start: 07-12-2024 End: 18-89-7442zhdtqeqpypZZJEVHPCandy HAMPTONRAFacility:CD:[id number]: 07-11-2024 End: 18-80-1453saqiftcevqQprnyxmurRichard Mcclellancility:Infectious DiseaseStart: 07-09-2024 End: 14-35-2328erhjieoagtPnrlkg R [facility] Work Phone: Start: 07-09-2024 End: 59-80-5064Lotyayeg ReferredDarrin Ray Bunting DO-Lab [facility] Work Phone: Start: 07-09-2024 End: 16-44-4599Risxvj Bunting DO Work Phone: [facility]-Lab [facility] Work Phone: Start: 07-02-2024 End: 47-38-1489xburhpcbwdCkhvzu R [facility] Work Phone: Start: 07-02-2024 End: 19-36-1002Nlwnxfzt ReferredDarrin Ray Bunting DO-Lab [facility] Work Phone: Start: 07-02-2024 End: 29-24-1133Hdtgyw Bunting DO Work Phone: [facility]-Lab [facility] Work Phone: Start: 06-26-2024 End: 22-91-0372vkniyziguzNcaioqywlRichard Mcclellancility:Infectious DiseaseStart: 06-25-2024 End: 98-31-7568btvbmxwnuiErqvi Kuns DO Work Phone: [facility] Work Phone: Start: 06-25-2024 End: 34-64-5712Ucdfjtsb ReferredDarrin Ray Bunting DO-Lab [facility] Work Phone: Start: 06-25-2024 End: 41-63-4177Bfavy Kuns DO Work Phone: [facility]-Lab [facility] Work Phone: Start: 06-18-2024 End: 53-73-2780xpsakhexvzVmkuh Kuns DO Work Phone: [facility] Work Phone: Start: 06-18-2024 End: 97-58-1702Sawvbtfp ReferredBryamadou Sparkss DO Work Phone: [facility]-Lab [facility] Work Phone: Start: 06-18-2024 End: 37-58-9768Fffbrze encounter procedureDaalannaolinda Aguirre DO-Lab [facility] Work Phone: Start: 06-18-2024 End: 42-32-7769Pjuxq Kuns DO Work Phone: [facility]-Lab [facility] Work Phone: Start: 06-13-2024 End: 68-06-6534lwqddhtnygCgpkh Tjs DO Work Phone: [facility] Work Phone: Start: 06-13-2024 End: 46-46-0763Rxrrtvml ReferredBryamadou Sparkss DO Work Phone: [facility]-Lab [facility] Work Phone: Start: 06-13-2024 End: 46-59-2410Fyalnwo encounter procedureBryamadou Sparkss DO Work Phone: [facility]-Lab [facility] Work Phone: Start: 06-13-2024 End: 32-62-2031Kwcfp Kuns DO Work Phone: [facility]-Lab [facility] Work Phone: Start: 06-12-2024 End: 55-86-3705bdadcjguikPsuyg M Lizzi DO Work Phone: [facility] Work Phone: Start: 06-12-2024 End: 53-51-7116Ybsywpg encounter procedureOpal Ga DO Work Phone: [facility]-Lab [facility] Work Phone: Start: 06-12-2024 End: 69-58-7038Biuyf Lizzi DO Work Phone: [facility]-Lab [facility] Work Phone: Start: 06-11-2024 End: 54-01-4947atutzclkojZytiw M Lizzi DO Work Phone: [facility] Work Phone: Start: 06-11-2024 End: 51-11-1851Ocfkyzv encounter procedureOpal Ga DO Work Phone: [facility] Work Phone: Start: 06-11-2024 End: 74-66-7119Iljln Lizzi DO Work Phone: [facility] Work Phone: Start: 06-07-2024 End: 62-00-6106nmgezxemxiDwjdqc Noel Saltzman COTTRELL OPERATOR-CNPFacility:Infectious DiseaseStart: 06-06-2024 End: 27-58-7286itnxxqqpiyWevzo M Lizzi DO Work Phone: [facility] Work Phone: Start: 06-06-2024 End: 90-65-6005Znajcwjy ReferredMarcos Martin DO Work Phone: [facility] Work Phone: Start: 06-06-2024 End: 23-27-6858Pkhlpvg encounter procedureBryamadou Kuns DO Work Phone: [facility] Work Phone: Start: 06-06-2024 End: 03-51-3874Ywbip Lizzi DO Work Phone: [facility] Work Phone: Start: 06-04-2024 End: 10-30-8010yttmhsrqdiDknoyg Noel Saltzman COTTRELL OPERATOR-CNPFacility:Infectious DiseaseStart: 06-01-2024 End: 37-50-1791qqcymtgydgJwpnhs TannaFacility:EU [place]kyStart: 05-28-2024 End: 54-42-4791bywxenarepPeyle M Lizzi DO Work Phone: [facility] Work Phone: Start: 05-28-2024 End: 10-52-7668Alxthyx encounter procedureJaalondra Martni DO Work Phone: [facility] Work Phone: Start: 05-28-2024 End: 13-65-8772Ssjhc Lizzi DO Work Phone: [facility] Work Phone: Start: 76-03-7267nmxwvltkmsJpjgf LueFacility:EU MarieuskyStart: 05-21-2024 End: 45-58-4229lirjdpixjpIjxoyb Noel Saltzman COTTRELL OPERATOR-CNPFacility:Infectious DiseaseStart: 05-21-2024 End: 23-71-5303cmpzkdtnfuAqpku M Lizzi DO Work Phone: [facility] Work Phone: Start: 05-21-2024 End: 69-79-3214Nukaudf encounter procedureJaalondra Martin DO Work Phone: [facility] Work Phone: Start: 05-21-2024 End: 61-89-2282Izmsw Veronica DO Work Phone: [facility] Work Phone: Start: 05-14-2024 End: 08-81-3560bwtrlddjmxQtfzj Scott Martin DO Work Phone: [facility] Work Phone: Start: 05-14-2024 End: 24-84-5470Kspttizz ReferredJared Veronica DO Work Phone: [facility] Work Phone: Start: 05-14-2024 End: 58-35-9773Shudgfj encounter procedureJared Veronica DO Work Phone: [facility] Work Phone: Start: 05-14-2024 End: 99-26-7000Mjaut Veronica DO Work Phone: [facility] Work Phone: Start: 05-10-2024 End: 84-27-3628cosjqrqwlpBpfxdd Noel Saltzman COTTRELL OPERATOR-CNPFacility:Infectious DiseaseStart: 05-07-2024 End: 64-86-9048swrzyqlifbMmfvz M Veronica DO Work Phone: [facility] Work Phone: Start: 05-07-2024 End: 86-74-9166Ldreozc encounter procedureJared Veronica DO Work Phone: [facility] Work Phone: Start: 05-07-2024 End: 01-85-7733Pavgh Veronica DO Work Phone: [facility] Work Phone: Start: 04-30-2024 End: 34-96-3495pwjjqbbkngXqzbq M Lizzi DO Work Phone: [facility] Work Phone: Start: 04-30-2024 End: 82-50-9747Wnoeikh encounter procedureJared Veronica DO Work Phone: [facility] Work Phone: Start: 04-30-2024 End: 19-49-5971Mwkvh Lizzi DO Work Phone: [facility]-Lab [facility] Work Phone: Start: 04-26-2024 End: 61-96-1134Auvuuaw nursing facility care/day 25 minutesThkhurram Gabriel DPM Work Phone: Dr. 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 Work Phone: Start: 04-23-2024 End: 69-43-4372Tertx Lizzi DO Work Phone: [facility] Work Phone: Start: 04-15-2024 End: 74-00-9664Iehjkiujwk and management of inpatientAtheer R Moises TIDWELL [facility]: 38-19-6430Sqb-patient / Non-visitJared Veronica DO Work Phone: firsacramentoh Physician [facility] Work Phone: Start: 74-12-6523Lgnbz Veronica DO Work Phone: [facility] Work Phone: Start: 04-13-2024 End: 01-54-9469Cep-patient / Non-visitJared Veronica DO Work Phone: [facility] Work Phone: Start: 04-13-2024 End: 31-74-2361Vdwtn Veronica DO Work Phone: [facility] Work Phone: Start: 00-01-0540Pci-patient / Non-visitJared Veronica DO Work Phone: [facility] Phys[facility] Work Phone: Start: 29-53-1308Tqixw Veronica DO Work Phone: firsacramentou Physician [facility] Work Phone: Start: 04-03-2024 End: 17-95-6969Voixbah encounter procedureJared Veronica DO Work Phone: [facility] [place] Work Phone: Start: 04-03-2024 End: 33-85-7297Vouqu Veronica DO Work Phone: [facility] [place] Work Phone: Start: 04-03-2024 End: 61-51-0955fxyduaafneKkkhn M Veronica DO Work Phone: [facility] Work Phone: Start: 03-10-2024 End: 45-00-4269Ybgwwtcfvu and management of inpatientOpal Ga DO Work Phone: [facility] [place] [facility] Work Phone: Start: 03-10-2024 End: 56-48-4904Lwvyk Veronica DO Work Phone: [facility] [place] [facility] Work Phone: Start: 03-02-2024 End: 11-54-4564ruhhhdjvctWplfxz R BuntingFacility:[facility] Campustart: 03-02-2024 End: 22-26-1117Jdekboeq ReferredOpal Ga DO Work Phone: [facility] [place] Work Phone: Start: 02-21-2024 End: 66-92-7326Hiukcoswgd and management of inpatientSmitali Burris MD Work Phone: strz ICU STEPDOWN TELEMETRY 4KComment on above: Longstanding persistent atrial fibrillation (HCC) (Primary Dx); Cardiomyopathy, unspecified type (HCC); Lumbar stenosis with neurogenic claudicationStart: 02-16-2024 End: 81-63-4283chxyianxuqQUZTXQMSouthern [facility] AmbulatoryStart: 02-16-2024 End: 17-82-8849Nsvdvwdoy for preprocedural cardiovascular examinationSouthern [facility] Regional Medical Center AmbulatoryStart: 02-16-2024 End: 69-63-6309Enrbok outpatient visit 25 minutesWilliams [facility] DO Work Phone: [facility]anComsur[facility] on above:Preop cardiovascular exam; Heart failure, NYHA class 2; Chronic atrial fibrillation (Multi); 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 Work Phone: Start: 02-13-2024 End: 74-92-4864Fqkjhwixd for other preprocedural examinationOpal Ga DO Work Phone: [facility] Campustart: 02-13-2024 End: 83-38-6304Ppanjlz encounter procedureOpal Ga DO Work Phone: [facility] Work Phone: Start: 12-30-2023 End: 67-69-3425Xbgyblf encounter procedureOpal Ga DO Work Phone: [facility] [place] Work Phone: Start: 12-27-2023 End: 36-13-2340tzusytgtmnOlvoibuxeSelect [facility] Work Phone: Start: 12-27-2023 End: 47-38-7418Vwwdmyh encounter procedurePerson [facility] Hospital [facility] Work Phone: Start: 10-24-2023 End: 67-80-0573qcrcqvwcroHqeypwd Vytautas Giedraitis MDFacility:[facility] Start: 10-10-2023 End: 81-28-0132mfsrkqyianQvqoplk Vytautas Giedraitis MDFacility:[facility] Start: 09-21-2023 End: 35-03-8268iqzqgirjxmXD Opal Ga Work Phone: [facility] Work Phone: Start: 09-21-2023 End: 75-32-4546Ztudtzc encounter procedureDO Opal Ga Work Phone: [facility] Work Phone: Start: 09-12-2023 End: 74-52-9804kawfopowtxQC Opal Ga Work Phone: [facility] Work Phone: Start: 09-12-2023 End: 12-36-2644Pcqyasi encounter procedureDO Opal Ga Work Phone: [facility] [place] Work Phone: Start: 07-19-2023 End: 14-15-9784Zaadgkz encounter procedureDO Opal Ga Work Phone: [facility] [place] Work Phone: Start: 07-13-2023 End: 57-48-4878Qgqrsj outpatient visit 25 minutesBeckiscott Whitmore Francisco Javier Work Phone: uh [facility] HospitalComment on above:Chronic atrial fibrillation (Multi); Essential hypertension, benign; Heart failure, NYHA class 2 (Multi); Hyperlipidemia, unspecified hyperlipidemia typeStart: 03-18-2023 End: 19-31-3830izsltmozduEatgq Kuns Other rimidi Other Start: 11-48-1982Rbgaay outpatient visit 25 minutes [facility] CastaliaStart: 12-31-2022 End: 41-70-5940zoayaqpuorZecff Kuns Other rimidi Other Start: 16-68-1861Daomotvqz encounterOpal [facility] CastaliaStart: 12-06-2022 End: 37-30-5880kqpkkjyrkuJuhiv Kuns Other noSoufun Other Start: 45-19-7633Wagsnfzrj encounterOpal SparksRu [facility] Medicine CastaliaStart: 11-30-2022 End: 58-41-6796drwrmyzwqaGzhjq Kuns Other nouniversity [facility]ouri [facility] Setred Other Start: 63-04-7463Pwkdsrqso encounterBryamadou [facility] CastaliaStart: 55-03-0057gxgvrkhobqRJJUFIY HALKER .Facility:H1 Start: 09-15-2022 End: 41-30-6162rkjaaqlxbcCjlah Kuns Other [place] [facility]red Other Start: 30-83-6226Nqhzrg outpatient visit 15 minutes [facility] CastaliaStart: 80-80-4274Srcax UpdateOpal Ga Work Phone: [phone]-Fycoa [facility] DO Work Phone: Start: 11-54-7643Sbslephui encounterBryamadou VenessaG Family Medicine CastaliaStart: 09-08-2022 End: 42-06-9098qkhlzfuajiWB Opal Ga Work Phone: [facility] Work Phone: Start: 09-08-2022 End: 99-44-1549Crqxias encounter procedureDO Opal Ga Work Phone: [facility] [place] Work Phone: Start: 19-05-9783Jt RenewalOpal Sparkss Work Phone: [phone]-Aljsf [facility] 250 DO Work Phone: Start: 07-08-2022 End: 00-21-7644rponiaylxxGMGFGGLXSGKX LAKSHMIPATHY .Facility:U2Czcfe: 07-07-2022 Office outpatient visit 15 minutesOpal Sparkss Work Phone: [phone]-Akqkf [facility] DO Work Phone: Start: 47-47-4291qmusobtmdxXc. Bryan Keith Tjmyranda Facility:[id number]: 06-07-2022 End: 42-63-3006pvxbkjrtdzJjsbq Kuns Other [facility]...His Placeuniversity of [facility] Setred Other Start: 21-55-0236Qhrdox outpatient visit 25 minutes Opal TjmyrandaReece [facility] CastaliaStart: 06-01-2022 End: 94-75-6229yseffwyvilAiwum Kuns Other [facility]...His Placeuniversity of [facility] Setred Other Start: 24-11-2132Otfcoprre encounterEdmondamadou GaReece [facility] CastaliaStart: 05-13-2022 End: 36-18-0866xwahrwcatvRFWVQWUV MURPHYFacility:V0Hhuhy: 05-11-2022 End: 18-60-9996vrmujzknbiCxnqi Kuns Other [facility]...His Placeuniversity of [facility] Setred Other Start: 02-18-4811Yefygtjrw encounterEdmondamadou GaShriners Children's CastaliaStart: 04-15-2022 End: 06-28-1067ggvpypklshLY TROY BRAMBILA .Facility:J4Ggwun: 04-12-2022 End: 63-34-6804yceftubbcgDH Bryan Kuns Work Phone: [facility] Work Phone: Start: 04-12-2022 End: 30-54-7537Kgyznmtqaa RecurringDO Opal Ga Work Phone: [facility]-Physical Therapy [place] Work Phone: start: 03-30-2022 End: 82-49-5670negxfpotgwOQ TROY BRAMBILA .Facility:L1Uvunq: 89-95-7438Vs RenewalOpal Ga Work Phone: [phone]-Litst [facility] DO Work Phone: Start: 66-92-9724uzxqyawhizVbrkgr Ibrahim Facility:[id number]: 25-33-6107ecaxyajemjBombulatoryMs. Enedelia GomezFacility: Start: 76-49-5660Cwujvzc encounter procedureOpal Ga Work Phone: [phone]-Rldky [facility] DO Work Phone: Start: 43-42-7268Mvuao UpdateOpal Ga Work Phone: [phone]-Nsekf [facility] DO Work Phone: Start: 23-59-2063Tahsyfohty RecurringDO Opal Ga Work Phone: [facility]-Physical Therapy [place] Work Phone: start: 03-11-2022 End: 32-69-6860xqsuukebwaUY Opal Ga Work Phone: [facility] Work Phone: Start: 03-11-2022 End: 04-75-7946Fraysjo encounter procedureDO Opal Ga Work Phone: [facility] [place] Work Phone: Start: 59-27-6136UJL, Provider: Enedelia Mix, Status: Pen, Time: 2:30 PMOpal Ga Work Phone: [phone]-Cytuq [facility] DO Work Phone: Start: 47-64-7957Morjrf outpatient visit 25 minutes Opal Ga Work Phone: [phone]-Zzgrk [facility] 600 DO Work Phone: Start: 48-70-5308Rdmofjn encounter procedureOpal Sparkss Work Phone: [phone]-Plexg [facility] DO Work Phone: Start: 53-26-5329ywpfsykgojYdDane Gomez Facility:[id number]: 03-09-2022 End: 40-10-3962pafcztvpmiXdtgi Kuns Other noDefinigen Other Start: 09-95-2187Mfrvmj outpatient visit 15 minutes Opal SparksmyrandaReece Family [facility] CastaliaStart: 03-04-2022 End: 92-33-0032tumdivpyrsQarmv Kuns Other nouniversity of missouri children[facility] Setred Other Start: 29-10-7598Oyoemhcdm encounterBryamadou DailyShriners Children's CastaliaStart: 15-22-8575Ba RenewalBryan P Kuns Work Phone: [phone]-XxemqNorthland [facility] Center-[facility] 250 DO Work Phone: Start: 03-03-2022 End: 66-45-4187bnkwmikydjKduex Kuns Other Demorest Setred Other Start: 83-53-3779Xuurygluc encounterOpal DailyReece [facility] CastaliaStart: 02-18-2022 End: 83-00-4807povvmgojukIF TROY VelaFacility:D3Hrhzx: 93-68-0885Qf RenewalBryan P Kuns Work Phone: [phone]-XkaciUnited Hospital 250 DO Work Phone: Start: 02-09-2022 End: 97-52-3949iyaqxzymwzIyskq Kuns Other Zing Setred Other Start: 32-77-6184Zlqxnm outpatient visit 25 minutes Opal SparksmyrandaReece [facility] CastaliaStart: 01-13-2022 End: 85-98-3279resoxnpzaqAjjtq Kuns Other Soufun Other Start: 36-37-5092Qbigtfxik encounterOpal Coleman [facility] CastaliaStart: 96-60-4425dismkkbktzIx. Opal Ga Facility:9090Start: 13-34-9906hmhvfekixzBlcbgl IbrahimFacility:9090Start: 96-19-4717mpqklxkicrIh. Opal GaFacility:9090Start: 01-09-2022 End: 19-89-8088Fuiwadfsdf and management of inpatientDO Opal Ga Work Phone: [facility] [place] Med SurgStart: 01-07-2022 End: 61-94-7202btyvsosobqYuqws Kuns Other rimidi Other Start: 70-43-7448Yjsdxi outpatient visit 25 minutes Opal GaReece [facility] CastaliaStart: 12-25-2021 End: 71-08-8432tsatqrkupyEvzvy Kunmyranda Other rimidi Other Start: 79-80-3498Pkckdbktr encounterOpal GaReece [facility] CastaliaStart: 12-17-2021 End: 82-06-1890ytfsqjpdatJP TROY BRAMBILA .Facility:U2Lwqcn: 12-17-2021 End: 71-57-1944axzowfcwjjWP Opal Ga Work Phone: [facility] Work Phone: Start: 12-17-2021 End: 30-53-0273Skjypmt encounter procedureDO Opal Ga Work Phone: [facility] CastaliaStart: 12-01-2021 End: 39-80-2016qpmzbkkzpeCM TROY S BRAMBILA .Facility:U4Lbrzk: 11-12-2021 End: 10-90-1779cwfbdjgfnqWH NELSY GAFacility:R2Kfwck: 10-12-2021 End: 41-76-8128ipnczpuywiKtcwe Kuns Other Zing Setred Other Start: 99-00-5935Chdcqc outpatient visit 15 minutes Opal [facility] CastaliaStart: 09-28-2021 End: 37-99-3771hjziimzcdgOhmgh Kuns Other [facility] Setred Other Start: 60-17-8981Qcjytzzrs encounterOpal [facility] CastaliaStart: 09-28-2021 End: 96-86-1309Gjszfofsfg RecurringDO Opal Sparksmyranda Work Phone: [facility] CastaliaStart: 09-11-2021 End: 50-24-8092xqvhuzfmzcWvtla Kuns Other [facility]...[facility] Placeun[facility] Setred Other Start: 60-26-0631Fjoswws evaluation of patient and reportOpal GaReece [facility] CastaliaStart: 64-38-2659Yofgsalyv encounter Opal GaReece [facility] [place]Start: 09-10-2021 End: 69-06-5551iqgtgwzaccTX BRETT [facility]UNMer[facility] hospital [facility] Setred Other Start: 09-04-2021 End: 53-75-3712aunrxmmjxtFdcmw Kuns Other Demorest Setred Other Start: 82-39-3821Eigdbtmyv encounterOpal [facility] [place]aliaStart: 08-31-2021 End: 97-42-6577efjemmkvdtVqpad Kuns Other rimidi Other Start: 02-52-4818Xhozdh outpatient visit 25 minutes Opal [facility] CastaliaStart: 08-17-2021 End: 14-80-6103sryppyhtbdYJ TROY S МАРИНА .Facility:V7Hfjgc: 08-13-2021 End: 25-90-8876xabvnwukdlZI TROY Myranda BRAMBILA .Facility:Q1Dbgve: 03-35-9525Ejmmwm outpatient visit 15 minutesBryamadou Ga Work Phone: [phone]-JxhymPerham Health Hospital 250 DO Work Phone: Start: 97-14-4246brzniwjsjeFqDane Parker Daily Facility:46[address]Mowqo: 07-28-2021 End: 54-50-9852cqvoumwcgvEV TROY Whitmore BRAMBILA .Facility:X1Rjuft: 05-25-2021 End: 98-53-3163wduccxwnemSgulv Kuns Other noSoufun Other Start: 83-05-1830Mzgzerqci encounterOpal CliffordG Family Medicine CastaliaStart: 67-16-8457Vh RenewalOpal Ga Work Phone: [phone]-[place]bubqPa[place] [address] DO Work Phone: Start: 03-11-2021 End: 42-53-4280ohwwxvjewrTdjvm Kuns Other rimidi Other Start: 82-46-6694Efrmyzksq encounterOpal [facility] CastaliaStart: 03-05-2021 End: 30-27-1219njtvyjzqiuWkmsr Kuns Other noSoufun Other Start: 22-16-6194Bijwaubql encounterOpal CliffordG Family Medicine CastaliaStart: 22-60-7358Lv RenewalOpal Sparkss Work Phone: [phone]-GdomlSt. Mary's Medical [facility] 250 DO Work Phone: Start: 01-19-2021 End: 65-97-1485sxknbewatqFwvcy Kuns Other rimidi Other Start: 14-13-5548Xmrgmj outpatient visit 25 minutes Opal GaFPG [facility] Medicine CastaliaStart: 84-62-8858Ga RenewalOpal Myers Daily Work Phone: [phone]-Kphqq [facility] 250 DO Work Phone: Start: 95-50-0606Dx RenewalOpal Sparksmyranda Work Phone: [phone]-Sjbqv [facility] [address]A [place] Work Phone: Start: 67-82-3552Jomsgo outpatient visit 15 minutes Opal Ga Work Phone: [phone]-Riron [facility] 250 DO Work Phone: Start: 47-26-5342Qcfuvum encounter procedureBryamadou Ga Work Phone: [phone]-Bgjim [facility] 250 DO Work Phone: Procedures DateProcedureProcedure DetailPerforming ClinicianStart: 55-67-6668Bvmmr culture Opal Ga DO Work Phone: Start: 88-49-1675Luiyl cultureOpal Ga DO Work Phone: Start: 87-29-2887XG cervical spine without contrast PHYSICIAN NO FAMILYStart: 35-13-6882OX of head without contrastPHYSICIAN NO FAMILYStart: 68-95-3249Gwnwl chest X-rayPHYSICIAN NO FAMILYStart: 63-03-7282NBK of lumbar spine with contrastPHYSICIAN NO FAMILYStart: 16-66-6507Cxkt energy X- ray absorptiometryPHYSICIAN NO FAMILYStart: 81-86-6289GH of head without contrastOpal Ga DO Work Phone: Start: 24-92-1856IR of lumbar spine without contrast Opal Ga DO Work Phone: Start: 05-65-0487D-ray of lumbar spine, six views including bending viewsBryan Kuns DO Work Phone: Start: 13-55-0740Pbjel cultureAmanda Kiera COTTRELL OPERATOR Work Phone: Start: 20-09-0583OJ of head without contrastAmanda Kiera COTTRELL OPERATOR Work Phone: Start: 87-99-5321Qntaw chest X-rayAmanda Kiera COTTRELL OPERATOR Work Phone: Start: 91-08-6220Ziwgywfh identified in Blood by CultureBryan Tjs DO Work Phone: Start: 95-68-6542Mhdqm Screen MRSA/MSSABryan Tjs DO Work Phone: Start: 26-74-6728Ognue cultureAmanda Kiera COTTRELL OPERATOR Work Phone: Start: 76-32-9416Qeemls Kiera COTTRELL OPERATOR Work Phone: Start: 10-06-2024 End: 18-54-9165SI of head without contrastAmanda Kiera COTTRELL OPERATOR Work Phone: Start: 43-83-7860XY cervical spine without contrast Melvi Kiera COTTRELL OPERATOR Work Phone: Start: 56-39-7152OE of facial bones without contrast Melvi Kiera COTTRELL OPERATOR Work Phone: Start: 95-16-3934HN of head without contrastAmanda Kiera COTTRELL OPERATOR Work Phone: Start: 44-15-8719Mksqe cultureAmanda Kiera COTTRELL OPERATOR Work Phone: Start: 53-68-5947Zcuyv cultureAmanda Kiera COTTRELL OPERATOR Work Phone: Start: 19-19-9942Pqvmz chest X-rayAmanda Kiera COTTRELL OPERATOR Work Phone: Start: 10-97-4617Masflkh microbial cultureAmanda Kiera COTTRELL OPERATOR Work Phone: Start: 80-67-8620Rhdgcijxq microbial cultureAmanda Kiera COTTRELL OPERATOR Work Phone: Start: 98-88-4658Gkpn stain microscopyAmanda Kiera COTTRELL OPERATOR Work Phone: Start: 61-18-2989IMGQYYB CULTUREFredric H Itzkowitz DO Work Phone: Start: 33-70-1798HGCYESOYB CULTUREFredric H Itzkowitz DO Work Phone: Start: 29-81-6777AW of lower leg without contrast Melvi Kiera COTTRELL OPERATOR Work Phone: Start: 07-90-5625FJ of abdomen and pelvis without contrastAmanda Kiera COTTRELL OPERATOR Work Phone: Start: 81-98-8924Tlino Screen MRSA/MSSAAmanda Kiera COTTRELL OPERATOR Work Phone: Start: 70-58-2183Aiaxrqnhd for occult blood in feces Melvi Kiera COTTRELL OPERATOR Work Phone: Start: 48-12-4699Ekulcg Kiera COTTRELL OPERATOR Work Phone: Start: 52-63-8012Nqlia chest X-rayAmanda Kiera COTTRELL OPERATOR Work Phone: Start: 83-98-8142Yxjvfskg identified in Blood by CultureAmanda Kiera COTTRELL OPERATOR Work Phone: Start: 33-62-0195Xihtbulyn ID (NA Multiplex Assay) Melvi Kiera COTTRELL OPERATOR Work Phone: Start: 13-12-6494Satlw cultureAmanda Kiera COTTRELL OPERATOR Work Phone: Start: 07-12-2024 End: 62-62-1692Cjbmh nucleic acid assayAmanda Kiera COTTRELL OPERATOR Work Phone: Start: 18-15-8800Wkjfrl Kiera COTTRELL OPERATOR Work Phone: Start: 40-60-8983Ieipc cultureJared Veronica DO Work Phone: Start: 62-64-2764ZI pre/post mri xrayJared Veronica DO Work Phone: Start: 04-63-5121BV lumbar spine wo conJared Veronica DO Work Phone: Start: 04-03-2024 End: 97-32-9110Wbehv Veronica DO Work Phone: Start: 50-51-4523Shdxetfp identified in Blood by CultureOpal Ga DO Work Phone: Start: 79-31-9378Nqddsdvumij Panel (PCR)Opal Ga DO Work Phone: Start: 64-92-9568Oqvqe cultureOpal Ga DO Work Phone: Start: 43-32-3671Voqls Veronica DO Work Phone: Start: 92-64-9180Hmcrq chest X-rayOpal Ga DO Work Phone: Start: 65-74-3064Zzczv gap [Moles/Vol]Gustabo Diglio PA Work Phone: Start: 56-69-8728Fpvdr metabolic panel calcium total Gustabo Diglio PA Work Phone: Start: 96-37-0314INUMSJKTXW FILTRATION RATE, ESTIMATED Gustabo Diglio PA Work Phone: Start: 65-95-6219Unupmc ecg 1-3 leads w/interpretation & reportUnknown Provider ResultStart: 61-98-0499Letbht ecg 1-3 leads w/interpretation & reportUnknown Provider ResultStart: 82-49-3868Acexc gap [Moles/Vol]Gustabo Diglio PA Work Phone: Start: 58-03-7770Spolh metabolic panel calcium total Gustabo Diglio PA Work Phone: Start: 56-94-5498SJNEJZVASZ FILTRATION RATE, ESTIMATED Gustabo Diglio PA Work Phone: Start: 92-27-7289Fxvspojnb virus A and B RNA and SARS-CoV-2 (COVID-19) N gene panel - Respiratory specimen by SMITHA with probe detectionRanda King MD Work Phone: Start: 87-52-7301XXLEOER, SEPSISRanda King MD Work Phone: Start: 91-89-5448Benkmdxt identified in Blood by Aerobe cultureRanda King MD Work Phone: Start: 86-37-4180Tbzrl count complete automatedOlfannie King MD Work Phone: Start: 39-37-9622Klbpnun bacterial blood aerobic w/id isolatesOlfannie King MD Work Phone: Start: 25-43-5604SNKUPLW, SEPSISOlfannie King MD Work Phone: Start: 50-53-2571Urspv gap [Moles/Vol]Gustabo Diglio PA Work Phone: Start: 27-85-9200Bhrjm metabolic panel calcium total Gustabo Diglio PA Work Phone: Start: 19-83-7483CELDYOVIDG FILTRATION RATE, ESTIMATED Gustabo Diglio PA Work Phone: Start: 63-68-5958Fpssvf and language therapy regime Randa King MD Work Phone: Start: 48-49-8646Vbualrikcx exam chest single view Randa King MD Work Phone: Start: 20-87-6711De head/brain w/o contrast material Randa King MD Work Phone: Start: 57-02-5834Vqmh bld gluc mntr dev cleared fda spec home useAlexis Diglio PA Work Phone: Start: 08-29-2539Htkgb gap [Moles/Vol]Gustabo Diglio PA Work Phone: Start: 03-32-2733Scwvj metabolic panel calcium total Gustabo Diglio PA Work Phone: Start: 14-57-9575OSFFROTOWO FILTRATION RATE, ESTIMATED Gustabo Diglio PA Work Phone: Start: 01-21-6110Dosr tthrc r-t 2d w/wom-mode compl spec&colr Baldev King MD Work Phone: Start: 02-23-2024 End: 55-81-3897Epaxsl ecg 1-3 leads w/interpretation & reportUnknown Provider ResultStart: 28-83-1290Qwatl gap [Moles/Vol]Gustabo Diglio PA Work Phone: Start: 55-87-9788Sbnja metabolic panel calcium total Gustabo Diglio PA Work Phone: Start: 73-86-7437MHLZLUYGIF FILTRATION RATE, ESTIMATED Gustabo Diglio PA Work Phone: Start: 89-01-3166Znqwaz ecg 1-3 leads w/interpretation & reportUnknown Provider ResultStart: 41-68-1814Zthrrtrllgy peptideOlfannie King MD Work Phone: Start: 02-22-2024 End: 97-20-8472Awwtxz ecg 1-3 leads w/interpretation & reportUnknown Provider ResultStart: 65-36-7983Pnre bld gluc mntr dev cleared fda spec home useAlexis Diglio PA Work Phone: Start: 83-36-8226Cevvx gap [Moles/Vol]Gustabo Diglio PA Work Phone: Start: 11-68-7186Wwrlb metabolic panel calcium total Gustabo Diglio PA Work Phone: Start: 67-44-9802ZMVDDIQIUZ FILTRATION RATE, ESTIMATED Gustabo Diglio PA Work Phone: Start: 50-91-0807Nxwa bld gluc mntr dev cleared fda spec home useAlexis Diglio PA Work Phone: Start: 91-60-4491Xzqhwz ecg 1-3 leads w/interpretation & reportUnknown Provider ResultStart: 44-33-2769Sbtep count hemoglobinSttyrone Whittington Parvez PA-C Work Phone: Start: 99-79-6787Mlvqe spine 1 view specify level Selmerna Burris MD Work Phone: Start: 02-21-2024 End: 08-45-5841Zduliziwxpz posterior/posterolateral lumbarSelvon Moshe Burris MD Work Phone: Start: 02-21-2024 End: 79-51-7890Vcllrjoex spine surgery local from same incisionSmitali Burris MD Work Phone: Start: 02-21-2024 End: 77-85-9325God facetectomy & foramotomy [address] [facility] Work Phone: Start: 48-35-3405Slydivfm screenSeljac[address] [facility] [place] Work Phone: Comment on above:Performed at [facility] [address] [place] [address]Efmcr: 03-02-6596Ibhsi typing serologic aboAlexis Diglio PA Work Phone: Start: 90-71-8171Bbw routine ecg w/least 12 lds w/i&r Tavo Mcintyre DO Work Phone: Start: 22-99-2819KE of right hipDO Opal Sparksmyranda Work Phone: Start: 80-69-5195Ukzzt X-ray of right hipDO Opal Daily Work Phone: Start: 53-86-8581Evupa cultureDO Opal Daily Work Phone: Start: 35-81-6106Umdff culture for bacteria, including anaerobic screenDO Opal Ga Work Phone: start: 59-15-2265Acjov chest X-rayDO Opal Ga Work Phone: Start: 30-26-3555HAY of lumbar spine with contrastDO Opal Ga Work Phone: Start: 81-94-1258Gkswtnz ultrasonography of bilateral carotid arteriesDO Opal Ga Work Phone: Start: 25-68-4001Mfefqjeucotosdl of bilateral kidneys DO Opal Ga Work Phone: Start: 86-98-9321NSNH Antigen (LFIA)DO Opal Ga Work Phone: Start: 98-89-4979Psapd chest X-rayDO Opal Ga Work Phone: Start: 14-12-4046Gyggpetn tomography of thoracic spine without contrastDO Opal Ga Work Phone: Start: 03-26-4074XZ cervical spine without contrastDO Opal Ga Work Phone: Start: 18-67-2233OC of head without contrastDO Opal Ga Work Phone: Start: 99-31-7759NU of lumbar spine without contrastDO Opal Ga Work Phone: Start: 57-52-7799Bxhds colonoscopyOpal Ga Work Phone: Comment on above:[facility];Arthroplasty of kneeOpal P Tjs Work Phone: Comment on above:2016 and 2020;Arthroscopy of shoulder Opal P Tjs Work Phone: Cardiac catheterizationEdmondamadou P Tjs Work Phone: Epidural steroid injectionOpal P Tjs Work Phone: History of excision of lamina of lumbar vertebra for decompression of spinal cordHx of decompressive lumbar laminectomyAmanda Kiera COTTRELL OPERATOR Work Phone: Comment on above:2011-with tumor resectionHistory of excision of lamina of lumbar vertebra for decompression of spinal cordHx of decompressive lumbar laminectomyElena Turovskaya APRNHistory of excision of lamina of lumbar vertebra for decompression of spinal cordHx of decompressive lumbar laminectomyElena Turovskaya APRNProcedure on backBryan P Kuns Work Phone: Procedure on neckBryan P Kuns Work Phone: Procedure on prostateBryan P Kuns Work Phone: Prosthetic arthroplasty of the hipBryan P Kuns Work Phone: Total replacement of hipBryan P Kuns Work Phone: Urine cultureDO Opal Daily Work Phone: Plan of Treatment DateCare ActivityDetailAuthorStart: 62-97-3953GhxihKindred Hospital Limatart: 16-64-3597EgwqszkdzTrinity Health System West Campustart: 31-73-9375Honnb [facility] Hospitaltart: 12-27-2024 Bacteria identified in Urine by CultureGreene Memorial Hospitaltart: 77-19-2960HwxantknoTrinity Health System West Campustart: 12-12-2024 Hospital admissionTrinity Health System West Campustart: 52-94-4952Grwwxwpw identified in Urine by CultureCommunity Memorial Hospital Start: 55-82-6288TigusKindred Hospital Limatart: 10-10-2024 [facility] Campustart: 10-06-2024 End: 72-40-0502AvkkqhejeTrinity Health System West Campustart: 82-61-9999Mwzxfihw admissionTrinity Health System West Campustart: 33-97-5773CshhwopqxTrinity Health System West Campustart: 41-82-8603Ojxgfhmp identified in Urine by CultureGreene Memorial Hospitaltart: 36-83-3058UnxkqKindred Hospital Limatart: 81-53-1493xccdmzemdrZrkuaefnapFymfscyw:EU Ameena Start: 94-23-2845OhzbvwcxcTrinity Health System West Campustart: 15-10-4835AwclothoqSt. Francis Hospital CenterStart: 41-61-9594SiyrydcxuSt. Francis Hospital CenterStart: 57-14-1966OkijpvkmjSt. Francis Hospital CenterStart: 07-18-2024 End: 13-39-3194Xssolxb encounter yxiybngck96/14/2025 10:00 AM EDT Office Visit [place] [id number] [facility] [address] [place] [phone] Tavo Mcintyre DO [address] [place] [address] [facility] DothanStart: 24-10-4606CdwktkwdrTrinity Health System West Campustart: 07-17-2024 End: 63-05-1206YamjoavwkSt. Francis Hospital CenterStart: 79-74-9657Ecgnckumfayij metabolic 1999 panel - Serum or PlasmaSt. Francis Hospital CenterStart: 07-16-2024 End: 29-12-5235WgvimszqmSt. Francis Hospital CenterStart: 82-10-2599Wrbsodrjw microbial cultureSt. Francis Hospital CenterStart: 52-44-9347Joycbfdbttijo metabolic 1999 panel - Serum or PlasmaSt. Francis Hospital CenterStart: 2024 End: 30-86-1327AxcxqhdpxSt. Francis Hospital CenterStart: 28-73-4785Pdnlnaxm to infectious diseases physicianSt. Francis Hospital CenterStart: 07-14-2024 Comprehensive metabolic 1999 panel - Serum or PlasmaSt. Francis Hospital CenterStart: 07-14-2024 End: 00-61-4962CxbptcoaoSt. Francis Hospital CenterStart: 20-33-0243Nwoznpxvclgks metabolic 1999 panel - Serum or PlasmaSt. Francis Hospital CenterStart: 52-06-3411BauqvsddtSt. Francis Hospital CenterStart: 07-12-2024 End: 40-92-9274GnseytbhrSt. Francis Hospital CenterStart: 65-03-9594Hglxazzq admissionSt. Francis Hospital CenterStart: 01-86-0013Bbrlwmzmm culture of sputumSt. Francis Hospital CenterStart: 80-94-6452Ofxmymru therapy procedureSt. Francis Hospital CenterStart: 78-68-3553Saojlzbe to occupational therapistTrinity Health System West Campustart: 38-00-3147Zicgscjp to urologistTrinity Health System West Campustart: 37-34-6607Hppau culture [facility] Campustart: 07-12-2024 End: 64-97-0428SonbdrbtmTrinity Health System West Campustart: 07-12-2024 Hemoglobin.gastrointestinal [Presence] in StoolSalem City Hospital Start: 22-67-0880Btnbmaup of Right Lower Leg Skin, External ApproachTrinity Health System West Campustart: 35-13-1985Pqqhpnuif of Infusion Device into Superior Vena Cava, Percutaneous ApproachTrinity Health System West Campustart: 27-29-0886DrbuyxcfpTrinity Health System West Campustart: 06-12-2024 End: 63-84-7996Pxmzb [facility] Hospitaltart: 03-15-2024 [facility] Campustart: 37-20-1334LkpsluaboTrinity Health System West Campustart: 02-67-9028Mlcddtoa identified in Blood by CultureBlood Culture [facility] Campustart: 49-61-1028Sajdptoi therapy procedure [facility] Campustart: 50-27-2333Lhbnjslc to occupational therapistTrinity Health System West Campustart: 86-40-2808QajkmqylgTrinity Health System West Campustart: 72-98-9240Jbftkpjd admissionTrinity Health System West Campustart: 03-10-2024 End: 82-98-6739WowbgxektTrinity Health System West Campustart: 46-57-3641Irdyozg function panelTrinity Health System West Campustart: 40-01-8860Kkblurp Directive DiscussionAdvance Directive DiscussionMercy Health Allen Hospitaltart: 67-26-0455Nwhkjp Wellness Visit (Medicare)Annual Wellness Visit (Medicare)[facility] CenterDo It In Person [facility]: 90-73-4258Kyjex-19 Vaccine ( season)Covid- 19 Vaccine ()[facility] Hospitaltart: 73-27-5645CBZSF-19 Vaccine ()COVID-19 Vaccine ()[facility] CenterDo It In Person [facility]: 05-63-1472NIZWU-19 Vaccine ( season)COVID-19 Vaccine ( season)[facility]: 23-85-8357Qvmhfckme vaccinationInfluenza Vaccine (#1)[facility]: 06-15-0223Mqietdxfi vaccinationFlu vaccine (#1)[facility] HospitalStart: 07-13-2023 End: 20-77-7136Hmxvdld aminotransferase [Enzymatic activity/volume] in Serum or Plasma by With P-5'-PAlanine Aminotransferase Lab Routine Hyperlipidemia, unspecified hyperlipidemia type Expected: 07/13/2023 (Approximate), Expires: [facility]/2024Un[facility] Work Phone: Comment on above:Expected: 07/13/2023 (Approximate), Expires: 07/12/2024Start: 07-13-2023 End: 77-07-9181Oqemopspq aminotransferase [Enzymatic activity/volume] in Serum or Plasma by With P-5'-PAspartate Aminotransferase Lab Routine Hyperlipidemia, unspecified hyperlipidemia type Expected: 07/13/2023 (Approximate), Expires: 07/12/2024UnFairfield Medical Center Work Phone: Comment on above:Expected: 07/13/2023 (Approximate), Expires: 07/12/2024Start: 07-13-2023 End: 98-25-7398Vsmhj metabolic 2000 panel - Serum or PlasmaBasic Metabolic Panel Lab Routine Chronic atrial fibrillation (Multi) Essential hypertension, benign Heart failure, NYHA class 2 (Multi) Hyperlipidemia, unspecified hyperlipidemia type Expected: 07/13/2023 (Approximate), Expires: 07/12/2024[facility] Service Area Work Phone: Comment on above:Expected: 07/13/2023 (Approximate), Expires: 07/12/2024Start: 07-13-2023 End: 86-43-7487Vidfn 1996 panel - Serum or PlasmaLipid Panel Lab Routine Hyperlipidemia, unspecified hyperlipidemia type Expected: 07/13/2023 (Approx imate), Expires: 07/12/2024UnFairfield Medical Center Work Phone: Comment on above:Expected: 07/13/2023 (Approximate), Expires: 07/12/2024Start: 07-13-2023 End: 19-06-8302Zoznffakztf peptide B [Mass/volume] in BloodB-Type Natriuretic Peptide Lab Routine Heart failure, NYHA class 2 (Multi) Expected: 07/13/2023 (Approximate), Expires: 07/12/2024[facility] Work Phone: Comment on above:Expected: 07/13/2023 (Approximate), Expires: 07/12/2024Start: 02-51-7213VBV, Provider: Tavo Mcintyre, Status: Pen, Time: 9:40 AMFUV, Provider: Tavo Mcintyre, Status: Pen, Time: 9:40 AMMP-[facility] [address] DO Work Phone: Start: 81-16-3219JijoqwdeksrjorwtHladimdtmxeaif [facility] DaytonStart: 41-94-1058FFHOP-19 Vaccine ( season)COVID-19 Vaccine ( season)[facility] Start: 15-54-1297JWL, Provider: Tavo Mcintyre, Status: Pen, Time: 9:20 AMFUV, Provider: Tavo Mcintyre, Status: Pen, Time: 9:20 AMHigh[facility] [place] [address] DO Work Phone: Start: 13-56-6787CRHZGV MON, Provider: LEVAR MARES SUPERVISOR [employer] 1,[id number], Status: Pen, Time: 10:30 [facility] MON, Provider: LEVAR MARES SUPERVISOR [employer] 1,[id number], Status: Pen, Time: 10:30 AMMP-[facility] [address] DO Work Phone: Start: 69-16-0779XAL, Provider: Enedelia Mix, Status: Pen, Time: 2:30 PMFUV, Provider: Enedelia Mix, Status: Pen, Time: 2:30 PMMP-[facility]-[place] [address] DO Work Phone: Start: 75-96-8186YtfuyhjezSalem City Hospital Start: 04-59-3165Frdtvcii to infectious diseases physicianTrinity Health System West Campustart: 03-93-6823Acnkjkgz to neurologistTrinity Health System West Campustart: 72-14-3852Qksxpqro to Social ServicesTrinity Health System West Campustart: 69-60-6554Fptdaqdv admissionTrinity Health System West Campustart: 60-16-0024JsyxxwlthTrinity Health System West Campustart: 54-45-5538RCA, Provider: Tavo Mcintyre, Status: Pen, Time: 9:50 AMMP-[facility] [address] DO Work Phone: Start: 05-55-3360QCW, Provider: Tavo Mcintyre, Status: Pen, Time: 9:30 AMFUV, Provider: Tavo Mcintyre, Status: Pen, Time: 9:30 AM-[facility]-[place] [address] DO Work Phone: Start: 94-48-5932Wojhzswttzc Syncytial Virus (RSV) or age 60 yrs+ (1 - 1-dose 75+ series)Respiratory Syncytial Virus (RSV) or age 60 yrs+ (1 - 1-dose 75+ series)[facility]Start: 30-35-4650AQQ High Risk: (Elderly (60+) or Population) (1 - 1-dose 75+ series)RSV High Risk: (Elderly (60+) or Population) (1 - 1-dose 75+ series)[facility] DaytonStart: 02-23-7014KAQ Vaccine (1 - 1-dose 75+ series)RSV Vaccine (1 - 1-dose 75+ series)[facility] Hospitaltart: 06-02-2016 Pneumococcal 65+ years Vaccine (2 of 2 - PPSV23 or PCV20)Pneumococcal 65+ years Vaccine (2 of 2 - PPSV23 or PCV20)[facility]Start: 06-02-2016 Pneumococcal Vaccine: 65+ Years (2 of 2 - PPSV23 or PCV20)Pneumococcal Vaccine: 65+ Years (2 of 2 - PPSV23 or PCV20)[facility]: 17-48-6991SMJ patients and/or patients aged 60+ years (1 - 1-dose 60+ series)RSV patients and/or patients aged 60+ years (1 - 1-dose 60+ series)[facility]: 75-32-4868Pgxawpbkelav Vaccine: 50+ (1 of 1 - PCV)Pneumococcal Vaccine: 50+ (1 of 1 - PCV)[facility] 88-05-5734Mwnaluby vaccine (1 of 2)Shingles vaccine (1 of 2)[facility]: 38-21-1826Jtyzhttx Vaccine (1 of 2)Shingrix Vaccine (1 of 2) [facility] 67-98-8904Zjgdlm Vaccines (1 of 2)Zoster Vaccines (1 of 2)[facility]: 10-70-2597Cnxmleqi ScreeningDiabetes ScreeningOhio State East Hospitalrt: 77-16-3284SWiU/Tdap/Td Vaccines (1 - Tdap) DTaP/Tdap/Td Vaccines (1 - Tdap)[facility]: 34-06-7431KOkR/Tdap/Td vaccine (1 - Tdap)DTaP/Tdap/Td vaccine (1 - Tdap)[facility]: 43-99-9231Wdhby microalbumin profileDTaP,Tdap,Td Vaccine (1 - Tdap)[facility]: 70-70-1490Fxnckdu ScreeningAnxiety ScreeningOhio State East Hospitalrt: 43-77-3468Gesqvbvrge ScreeningDepression ScreeningOhio State East Hospitalrt: 48-16-5804Jlcnnaxe mellitus screeningDiabetes ScreeningUnSumma Health [facility]: 77-77-6481Aoinlkhvof Screen Depression ScreenBon [facility]: 48-06-1929Yfihg panelLipidsBon [facility]: 50-85-3821Oeczinfvbh measurementCreatinine Level [facility]: 46-19-0735Smrss panelLipid Panel [facility]: 05-11-1941Medicare Annual Wellness Visit Medicare Annual Wellness Visit (AWV)[facility]: 68-75-7265Rsydjrpyo measurementPotFairfax Community [facility] – [place] Start: 07-11-3564Gkdnyos stimulating hormone measurementTSComanche County Memorial Hospital – LawtonAEROBIC CULTUREAEROBIC CULTURE Lab Routine 2024 12:15 PM EDTNOUT [facility] Work Phone: ANAEROBIC CULTUREANAEROBIC CULTURE Lab Routine 2024 12:15 PM EDErlanger North HospitalAnion gap measurementOhiohealth Southeastern Medical Center Work Phone: Bacteria identified in Blood by Aerobe cultureBon [facility] HospitalBacteria identified in Urine by CultureUrine Culture [facility] End: 55-83-5351Pitme metabolic 1999 panel - Serum or PlasmaBasic Metabolic Panel Lab Routine Daily for 1 Weeks starting 02/22/2024 until 02/28/2024, 6 completed Bon [facility] HospitalComment on above:Daily for 1 Weeks starting 02/22/2024 until 02/28/2024, 6 completedBasophil countOhiohealth Southeastern Medical Center Work Phone: Basophil percent differential countOhiohealth Southeastern Medical Center Work Phone: Blood culture for bacteria, including anaerobic screen Blood CultureSalem City HospitalCalcium [Mass/volume] in Serum or PlasmaOhiohealth Southeastern Medical Center Work Phone: Carbon dioxide, total [Moles/volume] in Serum or PlasmaOhiohealth Southeastern Medical Center Work Phone: Chloride [Moles/volume] in Serum or PlasmaOhiohealth Southeastern Medical Center Work Phone: Comprehensive metabolic 1999 panel - Serum or Plasma [facility] HospitalCreatinine and Glomerular filtration rate.predicted panel - Serum, Plasma or BloodOhiohealth Southeastern Medical Center Work Phone: CT Lum[facility] spine [facility] region [facility] Debridement nail any method 1-5DEBRIDEMENT OF NAIL(S), 1-5 Procedures Routine Pain due to onychomycosis of toenail of left foot Pain due to onychomycosis of toenail of right foot Localized edema Decreased pedal pulses [facility] (current) use of anticoagulants Ordered: 04/26/2024P [facility] Work Phone: Comraef on above:Ordered: 04/26/2024Eosinophil percent differential countSt. [facility] Work Phone: Eosinophils [#/volume] in [facility] Work Phone: Erythrocyte mean corpuscular volume determination [facility] Work Phone: Erythrocytes [#/volume] in BloodSt. [facility] Work Phone: Glucose [Mass/volume] in Serum or PlasmaSt. [facility] Hospital [facility] Work Phone: Glucose [Mass/volume] in Serum or PlasmaPOCT Glucose Point of Care Testing STAT As Needed until discontinued starting 02/21/2024on [facility] [employer] Work Phone: comment on above:As Needed until discontinued starting 02/21/2024Glucose [Mass/volume] in Serum or PlasmaPOCT Glucose Point of Care Testing STAT As Needed until discontinued starting 02/21/2024[facility] on above:As Needed until discontinued starting 02/21/2024 Hematocrit [Volume Fraction] of [facility] Work Phone: Hemoglobin [Mass/volume] in [facility] Work Phone: Hemoglobin distribution, width determinationSt. Francis Hospital [facility] Work Phone: Leukocytes [#/volume] in [facility] Work Phone: Lymphocyte countSt. Francis Hospital [facility] Work Phone: Lymphocyte percent differential countSt. [facility] Hospital [facility] Work Phone: Mean corpuscular hemoglobin concentration determinationSt. Francis Hospital [facility] Work Phone: Mean corpuscular hemoglobin determinationSt. Francis Hospital [facility] Work Phone: Measurement of renal functionSt. Francis Hospital Ctr Work Phone: Monocyte countSt. [facility] Hospital [facility] Work Phone: Monocyte percent differential countSt. [facility] Hospital [facility] Work Phone: MR Lumbar spine WO and W contrast [facility] CenterMR Lum[facility] spine WO and W contrast [facility] CenterNeutrophil countSt. [facility] Hospital [facility]tr Work Phone: Neutrophil percent differential countSt. [facility] Hospital [facility] Work Phone: Oxygen therapy [Minimum Data Set]Initiate Oxygen Therapy Protocol Respiratory Care Routine As Needed until discontinued starting 02/21/2024 [employer] on above:As Needed until discontinued starting 02/21/2024atient EducationSt. Francis Hospital Ctr Work Phone: Patient referralSt. [facility] Work Phone: Platelet mean volume determinationSt. Francis Hospital [facility] Work Phone: Platelets [#/volume] in BloodSt. [facility] Hospital [facility] Work Phone: Potassium [Moles/volume] in Serum or PlasmaSt. [facility] Work Phone: Sodium [Moles/volume] in Serum or PlasmaSt. Francis Hospital [facility] Work Phone: Spirometry panelIncentive spirometry Respiratory Care Routine Every 2hr while awake until discontinued starting 02/21/2024 [employer] on above:Every 2hr while awake until discontinued starting 02/21/2024Urea nitrogen [Mass/volume] in Serum or PlasmaSt. Francis Hospital [facility]tr Work Phone: End: 09-04-9408Cqfznxsnkz with Reflex to CultureUrinalysis with Reflex to Culture Lab Routine One Time for 1 Occurrences starting 02/25/2024 until 04/27/2023 [employer] on above:One Time for 1 Occurrences starting 02/25/2024 until 02/25/2024Urine [facility] HospitalXR Lumbar spine ViewsLee Health [facility] Immunizations Immunization DateImmunizationNotesCare MzgasshzTemjdwow88-13-4332srltvbaou virus vaccine, unspecified formulationDO Opal Ga Work Phone: [facility]10-13-2023influenza, high dose seasonal, preservative-freeOpal Ga Other [facility]10-20-2022influenza, seasonal, injectableOpal Ga Other [facility]10-20-2022COVID-19 Moderna (BIvalent)Opal Ga Other [facility]10-20-2022Fluzone High-Dose Quadrivalent 0.7 ML Intramuscular Suspension Prefilled SyringeOpal P Daily Work Phone: [facility]12-15-2021Moderna COVID-19 Vaccine 100 MCG/0.5ML Intramuscular SuspensionBryan P Tjs Work Phone: [facility]03-24-2021Moderna COVID-19 Vaccine 100 MCG/0.5ML Intramuscular SuspensionBryan P Tjs Work Phone: [facility]03-01-2021COVID-19 Vaccine Moderna - Documentation Purposes OnlyOpal Ga Other [facility]02-24-2021Moderna COVID-19 Vaccine 100 MCG/0.5ML Intramuscular SuspensionBryan P Kuns Work Phone: [facility]02-08-2021Moderna COVID-19 Vaccine 100 MCG/0.5ML Intramuscular SuspensionEdmondan P Kuns Work Phone: [facility]10-17-2020Fluzone High-Dose Quadrivalent 0.7 ML Intramuscular Suspension Prefilled SyringeEdmondan P Tjs Work Phone: [facility]10-01-2020influenza, seasonal, injectableBryan P Kuns Work Phone: [facility]09-18-2019influenza, seasonal, injectableBryan Kuns Other [facility]09-16-2019Seasonal trivalent influenza vaccine, adjuvanted, preservative freeBryan P Kuns Work Phone: [facility]09-01-2019influenza virus vaccine, unspecified formulationBryan P Kuns Work Phone: [phone]-[place] [address] [place] Work Phone: [phone], high dose seasonal, preservative-freeBryan P Kuns Work Phone: [facility]10-01-2018influenza, seasonal, injectableBryan Kuns Other [facility]09-01-2018influenza virus vaccine, unspecified formulationBryan P Kuns Work Phone: [phone]-BxkjyPa[place] [address] DO Work Phone: [phone] virus vaccine, unspecified formulationBryan P Kuns Work Phone: [phone]-QwqzzPa[place] [address] DO Work Phone: [phone] conjugate vaccine, 13 valent Opal P Kuns Work Phone: [phone]-YaqbfPa[place] [address] DO Work Phone: [phone] 40/XylocaineBryan Kuns Other Demorest Setred Other Payers DatePayer CategoryPayerPolicy [id number] Cross Blue Shield Managed Care[facility] [id number].9.412621.513151.32072-05-5468Eqpjoik26-09-8707 Medicare1.2.840.772705.1.13.647.2.7.3.876235.78075-54-0661UrobBeraja Medical Institute INDEMNITY .2.840.326374.1.13.159.2.7.9.931312.80640. Memorial Medical [id number] .7.110630.004019 1960Medicare [id number] .[id number] .1.181917.3.57[id number] .1.222969.3.579.2.80455-47-0933Axqjudx744481950 2.16.840.1.377140.3.579.2.46063-98-6345Meidkyh434805587 2.16.840.1.014555.3.579.2.13133-09-0347Zctcvdi575905863 2.16.840.1.960039.3.579.2.08419-81-5919Awbglar955009741 2.16.840.1.126238.3.579.2.11334-30-1274Hgdbgpw661687542 2.16.840.1.116869.3.579.2.72719-77-3276Ksysrho369806196 2.840.1.571533.3.579.2.79248-91-1757Qcxpaiy547388730 2.840.1.383994.3.579.2.72404-28-9454Oymajjk7523169 2.16840.1.727560.3.579.2.55460-86-8698Cdeekzv8430503 2.16.840.1.641793.3.579.2.56229-74-1518Euppopy8754542 2.840.1.684366.3.579.2.95913-73-2631Fddouyf1550945 2.16.840.1.103111.3.579.2.93737-39-2548Goinrpz1990881 2.16.840.1.911072.3.579.2.60149-67-1018Cobzmgs4403302 2.16.840.1.600474.3.579.2.58248-42-2688Zbxsmhe0988343 2.16840.1.973960.3.579.2.59798-01-6254Igsuwdq3198899 2.16.840.1.975698.3.579.2.18964-62-0996Iinitph2487593 2.16.840.1.158853.3.579.2.11928-53-8857Dmhlpwq6876036 2.16.840.1.292665.3.579.2.13824-22-2794Grmimzu4046662 2.16.840.1.101241.3.579.2.58705-76-1667Oqwyqtu2737709 2.16.840.1.289566.3.579.2.07857-31-0750Ldptrqt0835242 2.16840.1.492991.3.579.2.82422-83-4619Fpjgzne334648028 2.16840.1.483030.3.579.2.1854-23-4408Fivltyp25450036 2.16.840.1.972102.3.579.2.18441-88-3965Fnedbie34633407 2.16.840.1.892567.3.579.2.26469-24-7008Pughwvb95223707 2.16.840.1.105191.3.579.2.64852-39-4602Xjxcejx13643512 2.16840.1.046641.3.579.2.78380-93-7275Fpamixz31735167 2.16.840.1.087273.3.579.2.62998-73-2099Chlvnfu00950298 2.16.840.1.201698.3.579.2.94290-76-5954Ksrtdgs023162894 2.16.840.1.666299.3.579.2.88170-38-7558Koiofay340606351 2.16.840.1.328396.3.579.2.87403-38-6325Ozrqygj972080486 2.840.1.990946.3.579.2.39782-84-3126Bsqpcku089714185 2.840.1.737703.3.579.2.85357-51-8504Tniubhf477952632 2.84.1.872434.3.579.2.39690-27-9909Bbqjycn136628547 2.0.1.878328.3.579.2.33766-38-0003Nncyqcz144999819 2..1.623434.3.579.2.68964-95-8769Svnrlqw090548003 2..1.229758.3.579.2.03666-17-8236Cgyebzz845794040 2..1.557170.3.579.2.75477-64-6615Jntcnjb022578047 2..1.933328.3.579.2.52758-84-4515Genefvc030505027 2.840.1.470941.3.579.2.1615Omvcdxr75773669 2..1.841463.3.579.2.531 Euxpzry14520175 2.840.1.897620.3.579.2.336Usyecur31272035 2.840.1.033713.3.579.2.308Lamzuym54754854 2.840.1.970934.3.579.2.531 Jxzfevq51139097 2.840.1.386056.3.579.2.187Ktefqnb47021445 2.840.1.658569.3.579.2.675Fbbqabq67969365 2.16.840.1.436200.3.579.2.531 Smnkpsq10611409 2.840.1.103581.3.579.2.383Kttaaio50752167 2.840.1.024807.3.579.2.855Mnihgfo23283418 2.840.1.281384.3.579.2.531 Izvlqkw47923752 2.840.1.506871.3.579.2.148Zmzbybb50096025 2.840.1.255397.3.579.2.522Iogdusj94000029 2.840.1.550759.3.579.2.531 Jwveoig98500516 2.840.1.076523.3.579.2.318Nlawihd79231565 2.840.1.994098.3.579.2.849Evmcddj83862092 2.0.1.028675.3.579.2.531 Zlldonk20566904 2..1.140057.3.579.2.203Odsqvow42436850 2.840.1.880628.3.579.2.080Zzfhblf01262593 2.840.1.080559.3.579.2.531 Teslowv95136655 2.840.1.802721.3.579.2.657Ypnlzej88342795 2.840.1.763156.3.579.2.624Emxdpgv66331097 2.840.1.704687.3.579.2.531 Rdexubb87540373 2.840.1.096886.3.579.2.510Tsfrves40458575 2.840.1.805298.3.579.2.988Lcnfkox84456471 2.16.840.1.684170.3.579.2.531 Sdyorjj24259842 2.16.840.1.945095.3.579.2.413Ststeqg10139281 2.16.840.1.193351.3.579.2.341Jxvnfzm78825529 2.16.840.1.717634.3.579.2.531 Numefzt31758316 2.16.840.1.198274.3.579.2.531 Social History DateTypeDetailFacilityStart: 07-13-2023 End: 23-58-2264Kduhp alcohol useDaily alcohol use-[facility] 250 DO Work Phone: Comment on above:1-2 beers;Coffee 2 cups daily;Quit smoking in 1979;Start: 07-13-2023 End: 84-32-4958Ucz Assigned At [facility] Setred Other Start: 12-26-2019 End: 23-47-7790Lheaomn smoking status NHISEx-smoker (finding)[facility] Campustart: 50-09-5074Aft [facility] 04-07[facility]1964 End: 40-56-0827Vhmvide of tobacco useCurrent smokerUnFairfield Medical Center Work Phone: Start: 04-07-1963 End: 07-36-1812Ympndcr of tobacco useCigarette SmokerUnFairfield Medical Center Work Phone: Start: 07-13-2023 End: 45-16-8756Fceptcj use and exposureSmokeless tobacco non-userUnFairfield Medical Center Work Phone: Start: 07-13-2023 End: 07-53-5215Mksyealwg beverage intakeCurrent drinker of alcohol (finding) [facility] Work Phone: Start: 47-79-4875Dwo assigned at birthNot on file [facility] Work Phone: Start: 07-03-2023 End: 50-26-9212Zqzqwuhq to SARS-CoV-2 (event)Not sureKindred Hospital DaytonStart: 70-71-5374Eoxhzlrod beverage intakeEx-drinker (finding)Bon jellyfish [facility] CampusPhysical abuseDeniesBon [facility] CenterDo It In Person [facility] CampusStart: 63-62-6936Egalmlx Commentdaily couple a dayBon jellyfish [facility] CampusStart: 03-10-2024 End: 53-76-9344MxtInrg (finding)[facility] HospitalTobawillow [facility] smoking status NHISTobacco smoking consumption unknownUniversity Health Lakewood Medical CenterStart: 07-13-2024 End: 58-62-6865FunwaltcvOhiohealth Southeastern Medical Center Work Phone: Medical Equipment Procedure CodeEquipment CodeEquipment Original TextEquipment IdentifierDates Arthroplasty, knee, total, minimally invasiveART SURF LEFT 11MM 10-11EFFDAStart: 52-67-3078Ztcvgbryiefd, knee, total, minimally invasive ()[id number] FDAStart: 87-99-4693Nuraexaeafmz, knee, total, minimally invasive()[id number] FDA Start: 87-40-5715Zhgcmffqdmny, knee, total, minimally invasive ()[id number] FDAStart: 13-76-1161Tvatspeyzppd, knee, total, minimally invasive()[id number] FDAStart: 39-20-5734Hjhananmwedy, knee, total, minimally invasiveART SURF LEFT 11MM 10-11EFFDAStart: 06-15-8420Eeamlwibfwxw, knee, total, minimally invasiveART SURF LEFT 11MM 10-11EFFDAStart: 25-77-7488Ynultrbkrluy, knee, total, minimally invasiveART SURF LEFT 11MM 10-11EFFDAStart: 43-92-5886Stjigtojqill, knee, total, minimally invasiveART SURF LEFT 11MM 10-11EFFDAStart: 44-64-2352Ragqrqfpllep, knee, total, minimally invasiveART SURF LEFT 11MM 10-11EFFDAStart: 11-05-2019 Arthroplasty, knee, total, minimally invasiveART SURF LEFT 11MM 10-11EFFDAStart: 73-27-4697Haeowyxlworr, knee, total, minimally invasiveART SURF LEFT 11MM 10-11EFFDAStart: 69-28-5332Eyymazxxhdpo, knee, total, minimally invasiveART SURF LEFT 11MM 10-11EFFDAStart: 42-94-4315Bipjgwxhhnap, knee, total, minimally invasiveART SURF LEFT 11MM 10-11EFFDAStart: 84-21-1318Aitjmysuamqo, knee, total, minimally invasiveART SURF LEFT 11MM 10-11EFFDAStart: 08-11-6567Nkhzycmugvzm, knee, total, minimally invasiveART SURF LEFT 11MM 10-11EFFDAStart: 11-05-2019 Arthroplasty, knee, total, minimally invasiveART SURF LEFT 11MM 10-11EFFDAStart: 06-69-2697Pkbxzcaniroo, knee, total, minimally invasiveART SURF LEFT 11MM 10-11EFFDAStart: 87-63-9411Nhfbufpynypq, knee, total, minimally invasiveART SURF LEFT 11MM 10-11EFFDAStart: 14-26-1225Vdavpfjguxjc, knee, total, minimally invasiveART SURF LEFT 11MM 10-11EFFDAStart: 90-55-8941Dgsahzxekmrn, knee, total, minimally invasiveART SURF LEFT 11MM 10-11EFFDAStart: 35-28-5232Ccpysekazvse, knee, total, minimally invasiveART SURF LEFT 11MM 10-11EFFDAStart: 11-05-2019 Arthroplasty, knee, total, minimally invasiveART SURF LEFT 11MM 10-11EFFDAStart: 36-89-7750Mtfzobdkuvuz, knee, total, minimally invasiveART SURF LEFT 11MM 10-11EFFDAStart: 08-13-6750Rosbzoqvurum, knee, total, minimally invasiveFDA Start: 60-86-4156Ljgwleozhuud, knee, total, minimally invasiveFDAStart: 61-31-5598Edqsuirjcijj, knee, total, minimally invasiveART SURF LEFT 11MM 10-11EFFDAStart: 69-13-4751Drhpfkffthtx, knee, total, minimally invasiveART SURF LEFT 11MM 10-11EFFDAStart: 28-21-1740Fkkphjcjofcy, knee, total, minimally invasiveFDAStart: 38-95-0073Lyhnghlsltbj, knee, total, minimally invasiveFDA Start: 75-53-9672Tbsppnlbseqx, knee, total, minimally invasiveFDAStart: 61-50-8492Olqlbuwzoipz, knee, total, minimally invasiveFDAStart: 11-05-2019 Arthroplasty, knee, total, minimally invasiveFDAStart: 50-66-2038Xicgavkinysa, knee, total, minimally invasiveART SURF LEFT 11MM 10-11EFFDAStart: 11-05-2019 Arthroplasty, knee, total, minimally invasiveART SURF LEFT 11MM 10-11EFFDAStart: 87-08-9516Iveonuuhmihx, knee, total, minimally invasiveART SURF LEFT 11MM 10-11EFFDAStart: 08-04-8531Xwqmdmuxlrak, knee, total, minimally invasiveART SURF LEFT 11MM 10-11EFFDAStart: 08-00-3767Rofzlasqapmk, knee, total, minimally invasiveFDAStart: 81-53-3579Pbpqinklvrri, knee, total, minimally invasiveFDA Start: 30-81-5554Tjnvtveqcaoi, knee, total, minimally invasiveART SURF LEFT 11MM 10-11EFFDAStart: 59-38-8721Uepzrelmixmz, knee, total, minimally invasiveART SURF LEFT 11MM 10-11EFFDAStart: 73-39-4230Uovfsyrurlsz, knee, total, minimally invasiveART SURF LEFT 11MM 10-11EFFDAStart: 13-04-7775Ukgtahmgamjd, knee, total, minimally invasiveART SURF LEFT 11MM 10-11EFFDAStart: 47-93-8164Eoikdnkldmiw, knee, total, minimally invasiveART SURF LEFT 11MM 10-11EFFDAStart: 11-05-2019 Arthroplasty, knee, total, minimally invasiveART SURF LEFT 11MM 10-11EFFDAStart: 42-56-2305Dxvpxsjsfzbb, knee, total, minimally invasiveFDAStart: 11-05-2019 Arthroplasty, knee, total, minimally invasiveART SURF LEFT 11MM 10-11EFFDAStart: 41-27-6597Hqocwhhblzmy, knee, total, minimally invasiveFDAStart: 11-05-2019 Goals DatePatient GoalDesired Activity/State Functional Status BdndPmqvipfyygAkgghiIhyxzozw10-41-9880Klofzgkhtk statusPatient is Progressing Toward [facility] Work Phone: [phone] statusPatient Not at Baseline [facility] Work Phone: [phone] statusPatient is Progressing Toward [facility] Work Phone: [phone] statusPatient is Progressing Toward [facility] Work Phone: [phone] statusPatient at Baseline [facility] Work Phone: [phone] statusPatient at Baseline [facility] Work Phone: [phone] statusPatient is Progressing Toward [facility] Work Phone: Mental Status XmvgMlmwllamxwTkafkwCgierofg35-05-3715Zmritszik functionPatient at Baseline [facility] Work Phone: [phone] functionCognitive Status Patient at [facility]St[facility] Work Phone: [phone] functionPatient at Baseline [facility] Work Phone: [phone] functionPatient at Baseline [facility] Work Phone: [phone] functionPatient at Baseline [facility] Work Phone: [phone] functionPatient at Baseline [facility] Work Phone: [phone] functionCognitive Status [facility] at [facility] Work Phone: Clinical Notes 05-23-2006 to 12-17-2024 Note Date & RptvLhipCenjmkzs34-88-0471 Progress note Author Michele Knight [facility] HospitalNote Date/TimeOctober 2024 8:35pm [place] [address] Hospitalist Progress Note Signed Patient: Tavo Wallis Jr MR# : [id number] : 1940 Acct:[id number] Age/Sex: 84 / M Adm Date: 5 Loc: 4N Room: 8M6708-6 Type: ADM IN Attending Dr: Michele Knight [...] normal respiratory effort Abd: soft, non-tender, non-distended, chou catheter in place Extremities: Warm well perfused, [...] on admission, wound nurse treating Plan Mr. Wallis is an 84-year-old male with PMH of HTN, hypothyroidism, BPH, chronic indwelling Chou catheter, history of multiple back surgeries including lumbar fusion, recently found to L1 compression fracture, A-fib on Eliquis, hypothyroidism who presents from home with multiple falls. ESBL Klebsiella complicated urinary tract infection In the setting of chronic indwelling Chou catheter Urine culture is growing Klebsiella. Very likely contributing to falls, was considering colonization versus true infection, but with the patient's severe symptomatology and weakness, will give a course of antibiotics - Adjust Bactrim to IV meropenem, day 3 plan for 5 days total L1 compression fracture Recurrent falls - Continue PT/OT, plan for discharge to residential facility for further therapy needs A-fib on [...] <Electronically signed by Michele Knight MD> 12/17/242034 [facility] Work Phone: 1([phone]) [phone] Progress note Author [facility] SystemNote Date/TimeOctober 2024 4:47pm [place] [address] Cardiology Progress Note Signed Patient: Tavo Wallis Jr MR# : [id number] : 1940 Acct:[id number] Age/Sex: 84 / M Adm Date: 5 Loc: 4N Room: 8V9981-6 Type: ADM IN Attending Dr: Michele Knight MD Copies to: ~ Date of Service: 12/17/2024 Subjective Principal diagnosis: Atrial fibrillation, recent SAH, multiple falls, anemia Interval history: Mr. Wallis is a 84 year old male seen [...] chronic, rate-controlled AF without medications. A&P: Mr. Wallis is an 84yo male with PMH of chronic AF, CHF, and hypothyroidismwho presented with multiple falls secondary to lumbar radiculopathy, deconditioning, and AF with RVR while on chronic anticoagulation. His HOLPW8RBXXcawcf is 4 and HAS-BLED score is also [...] % (Auto) 64.7 Lymph % (Auto) 17.9 [place] % (Auto) 10.4 Eos % (Auto) 6.2 Baso % (Auto) 0.8 Nucleat RBC Rel Count 0.1 Neut # (Auto) 2.2 Lymph # (Auto) 0.6 L [place] # (Auto) 0.4 Eos # (Auto) 0.2 [...] see above Documented By: Bhupinder Mcintyre DO 12/17/241643 Signed By: <Electronically signed by Bhupinder Mcintyre DO> 12/17/241646 [facility] Work Phone: [phone]) 309-930110-12-2025 Progress note Author Akash Mccartney [facility] Date/TimeOctober 2024 9:46pm [place] [address] Hospitalist Progress Note Signed Patient: Tavo Wallis Jr MR# : [id number] : 1940 Acct:[id number] Age/Sex: 84 / M Adm Date: 5 Loc: Room: [address] [place] [address] Type: ADM IN Attending Dr: Akash Mccartney [...] QID PRN Joint pains Ertapenem 1 each 10/11/25 15:54 Ertapenem - Pharmacy Dosing MISCELLANE ONCE [...] fibrillation with RVR: (2) Falls: Plan Mr. Wallis is an 84-year-old male with PMH of HTN, hypothyroidism, BPH, chronic indwelling Chou catheter, history of multiple back surgeries including lumbar fusion, recently found to L1 compression fracture, A-fib on Eliquis, hypothyroidism who presents from home with multiple falls. ESBL Klebsiella complicated urinary tract infection In the setting of chronic indwelling Chou catheter Urine culture is growing Klebsiella. Very likely contributing to falls, was considering colonization versus true infection, but with the patient's severe symptomatology and weakness, will give a course of antibiotics - Adjust Bactrim to IV meropenem, day 2 L1 compression fracture Recurrent falls - Continue PT/OT, plan for discharge to residential facility for further therapy needs A-fib on [...] <Electronically signed by Akash Mccartney MD> 12/16/242145 [facility] Work Phone: 1(490) 509-834010-11-2025 Progress note Author Akash Mccartney [facility] Date/TimeOctober 2024 4:39pm [place] [address] Hospitalist Progress Note Signed Patient: Tavo Wallis Jr MR# : [id number] : 1940 Acct:[id number] Age/Sex: 84 / M Adm Date: 5 Loc: 4N Room: [address] [place] [address] Type: ADM IN Attending Dr: Akash Mccartney [...] Microbiology Results Microbiology 12/12/24 13:19 Urine - Chou Catheter Urine Culture - Final Klebsiella pneumoniae [...] Syringe IV-PUSH 12/12/25 21:59 Not Given QSHIFT [facility] Trazodone HCl 50 mg 12/12/24 18:24 12/14/24 22:17 Trazodone 50 Mg Tablet PO 12/12/25 18:23 50 mg QHS PRN Administration Insomnia A&P - Hospitalist Assessment/Plan (1) Atrial fibrillation with RVR: (2) Falls: Plan Mr. Wallis is an 84-year-old male with PMH of HTN, hypothyroidism, BPH, chronic indwelling Chou catheter, history of multiple back surgeries including lumbar fusion, recently found to L1 compression fracture, A-fib on Eliquis, hypothyroidism who presents from home with multiple falls. ESBL Klebsiella complicated urinary tract infection In the setting of chronic indwelling Chou catheter Urine culture is growing Klebsiella. Very likely contributing to falls, was considering colonization versus true infection, but with the patient's severe symptomatology and weakness, will give a course of antibiotics - Adjust Bactrim to IV meropenem L1 compression fracture Recurrent falls - Continue PT/OT, plan for discharge to residential facility for further therapy needs A-fib on [...] future Documented By: Akash Mccartney MD 5 [id number] Signed By: <Electronically signed by Akash Mccartney MD> 12/15/24 3993 [facility] Work Phone: 1(260) 520-154610-10-2025 Progress note Author Akash Mccartney [facility] Date/TimeOctober 2024 5:22pm [place] [address] Hospitalist Progress Note Signed Patient: Tavo Wallis Jr MR# : [id number] : 1940 Acct:[id number] Age/Sex: 84 / M Adm Date: 5 Loc: 4N Room: [address] [place] [address] Type: ADM IN Attending Dr: Akash Mccartney [...] Microbiology Results Microbiology 12/12/24 13:19 Urine - Chou Catheter Urine Culture - Preliminary Klebsiella pneumoniae [...] Tablet PO 12/12/25 21:59 400 mg QHS [facility] Administration Non-Formulary Medication 3 mg 12/12/24 22:00 12/13/24 23:08 Eszopiclone [Lunesta] PO 12/12/25 21:59 Not Given QHS [facility] Nystatin 1 applic 12/12/24 21:00 [...] ANIBAL Trazodone HCl 50 mg 12/12/24 18:24 12/12/24 22:45 Trazodone 50 Mg Tablet PO 12/12/25 18:23 50 mg QHS PRN Administration Insomnia A&P - Hospitalist Assessment/Plan (1) Atrial fibrillation with RVR: (2) Falls: Plan Mr. Wallis is an 84-year-old male with PMH of HTN, hypothyroidism, BPH, chronic indwelling Chou catheter, history of multiple back surgeries including lumbar fusion, recently found to L1 compression fracture, A-fib on Eliquis, hypothyroidism who presents from home with multiple falls. Urinary tract infection In the setting of chronic indwelling Chou catheter Urine culture is growing Klebsiella. Very likely contributing to falls, but may also consider this is colonization of patient's chronic indwelling Chou catheter -Start Bactrim, plan for 7-day course of antibiotic treatment L1 compression fracture Recurrent falls - Continue PT/OT, plan for discharge to residential facility for further therapy needs A-fib on [...] signed by Akash Mccartney MD> 12/14/24 1722 [facility] Work Phone: [phone] 126-406610-10-2025 Consult note Author Bhupinder Mcintyre [facility] Date/TimeOctober 2024 4:05pm [place] [address] Cardiology Consult Note Signed Patient: Tavo Wallis Jr MR# : [id number] : 1940 Acct:[id number] Age/Sex: 84 / M Adm Date: Loc: 4N Room: [address] [place] [address] Type: ADM IN Attending Dr: Akash Mccartney MD Copies to: DO Akash Catalan MD Rebekah M Farris, DO, RES Bhupinder Mcintyre DO~ Cardiology HPI History of Present Illness Consult Date: 12/14/24 Reason for Consult: med management of Afib HPI: Mr. Wallis is a 84 year old male seen [...] chronic, rate-controlled AF without medications. A&P: Mr. Wallis is an 84yo male with PMH of chronic AF, CHF, and hypothyroidismwho presented with multiple falls secondary to lumbar radiculopathy, deconditioning, and AF with RVR while on chronic anticoagulation. His [id number] is 4 and HAS-BLED score is also [...] themain issue with his falling and weakness. [facility] Medical History Abrasion of arm, left Fall [...] Bilateral- History of total left hip arthroplasty 2012 History of total right knee replacement 2015 [...] drinks a day >6 Social History Comments: [facility] rehab Meds Medications and Allergies Allergies fentanyl [...] x10E3/uL Lymph # (Auto) 1.2 (1.00-4.8) x10E3/uL [place] # (Auto) 0.5 (0.0-0.8) x10E3/uL Eos # [...] 1200 / 2200 970 / 970 Urethral (Chou) 1200 / 2200 970 / 970 Other: [...] 12/14/24 1605 <Electronically signed by RES Janie Khan> 12/14/24 3787 [facility] Work Phone: 1(449) 270-500910-09-2025 Progress note Author Akash Mccartney [facility] Date/TimeOctober 2024 5:[place] [address] Hospitalist Progress Note Signed with Addenda Patient: Tavo Wallis Jr MR# : [id number] : 1940 Acct:[id number] Age/Sex: 84 / M Adm Date: 5 Loc: 4 Room: [address] [place] [address] Type: ADM IN Attending Dr: Akash Mccartney [...] pressures remain somewhat soft in the 90sover 50s?60s. Diltiazem drip has been weaned down to [...] Microbiology Results Microbiology 12/12/24 13:19 Urine - Chou Catheter Urine Culture - Preliminary Klebsiella pneumoniae [...] fibrillation with RVR: (2) Falls: Plan Mr. Wallis is an 84-year-old male with PMH of HTN, hypothyroidism, BPH, chronic indwelling Chou catheter, history of multiple back surgeries including [...] studies Documented By: Akash Mccartney MD 5 [id number] Signed By: <Electronically signed by Akash Mccartney MD> 12/13/24 9290 [facility] Work Phone: 1(711) 126-260210-09-2025 History and physical note Author Akash Mccartney [facility] Date/TimeOctober 2024 3:14[place] [address] Hospitalist H&P Signed Patient: Tavo Wallis MR# : [id number] : 1940 Acct:[id number] Age/Sex: 84 / M Adm Date: 5 Loc: 4N Room: 5K5825-2 Type: ADM IN Attending Dr: Akash Mccartney MD Copies to: DO Akash Catalan MD~ HPI DATE OF EXAMINATION: 12/12/24 CHIEF COMPLAINT: Repeated falls, weakness HISTORY OF PRESENT ILLNESS: Mr. Wallis is an 84-year-old male with PMH of HTN, hypothyroidism, BPH, chronicindwelling Chou catheter, history of multiple back surgeries including [...] that which is noted above in HPI [facility] Medical History Abrasion of arm, left Fall [...] drinks a day >6 Social History Comments: [facility] rehab Meds Medications and Allergies Allergies fentanyl [...] Uncorrected WBC Count 5.0 x10E3/uL (4.1-10.5) 12/12/24 12:25 RBC 3.34 x10E6/uL (3.90-5.60) L 12/12/24 12:25 Hgb 9.6 g/dL (13.0-17.0) L 12/12/24 12:25 Hct 29.7 % (38.8-50.0) L 12/12/24 12:25 MCV 88.7 fl (83.5-101) 12/12/24 12:25 MCH 28.8 pg (27.5-35.2) 12/12/24 12:25 MCHC 32.5 g/dL (32.5-35.6) 12/12/24 12:25 RDW 18.4 % (12.0-14.8) H 12/12/24 12:25 Plt Count 229 x10E3/uL (150-450) 12/12/24 12:25 MPV 7.8 fl (6.6-10.1) 12/12/24 12: Neut % (Auto) 71.6 % (.) 12/12/24 12: Lymph % (Auto) 15.9 % (.) 12/12/24 12: [place] % (Auto) 7.5 % (.) 12/12/24 12: Eos % (Auto) 4.4 % (.) 12/12/24 12:25 Baso % (Auto) 0.6 % (.) 12/12/24 12: Nucleat RBC Rel Count 0.3 /100 WBC (0-0.5) 12/12/24 12: Neut # (Auto) 3.5 x10E3/uL (1.8-7.7) 12/12/24 12: Lymph # (Auto) 0.8 x10E3/uL (1.00-4.8) L 12/12/24 12: [place] # (Auto) 0.4 x10E3/uL (0.0-0.8) 12/12/24 12:25 Eos # (Auto) 0.2 x10E3/uL (0.0-0.45) 12/12/24 12:25 Baso # (Auto) 0.0 x10E3/uL (0.0-0.2) 12/12/24 12: Monocyte Dist Width 18.74 % (0.00-20.00) 12/12/24 12: PT 28.3 Seconds (9.0-12.9) H 12/12/24 12:25 INR 2.6 12/12/24 12:25 APTT 38.4 Seconds (25.1-36.5) H 12/12/24 12:25 PHA Creatinine Clear 51.45 12/12/24 12:25 Sodium 136 mmol/L (136-145) 12/12/24 12:25 Potassium 3.6 mmol/L (3.5-5.1) 12/12/24 12: Chloride 102 mmol/L (98-107) 12/12/24 12:25 Carbon Dioxide 26.4 mmol/L (21.0-31.0) 12/12/24 12:25 Anion Gap 11.2 mEq/L (6.0-15.0) 12/12/24 12:25 [...] pH 5.5 (5.0-9.0) 12/12/24 13:19 Ur Specific Delta 1.004 (1.001-1.030) 12/12/24 13:19 Urine Protein Negative [...] fibrillation with RVR: (2) Falls: Plan Mr. Wallis is an 84-year-old male with PMH of HTN, hypothyroidism, BPH, chronicindwelling Chou catheter, history of multiple back surgeries including [...] (# of days): 3 Documented By: Akash Mccatrney MD 1910 Signed By: <Electronically signed by Akash Mccartney MD> 12/13/24 9507 [facility] Work Phone: [phone]) 456-948010-08-2025 [facility]iology [facility] [place] [address] [place] [address] CT Scan Report Signed Patient: Tavo Wallis Jr MR# : [id number] : 1940 Acct:[id number] Age/Sex: 84 / M ADM Date: 5 Loc: ER Room: Type: [facility] ER Attending Dr: Copies to: Sree Thao DO~ Ordering Provider: Sree Thao DO Date of Service: 12/12/24 CT/CT cervical spine wo con: fall ([id number]) CT/CT head/brain wo con: fall CT head/brain [...] Mahoney M.D. 12/12/2024 1:53 PM Dictation Location: [place] [address] Transcribed By: [facility] 12/12/24 1353 Dictated By: Shaquille Mahoney II, MD 12/12/24 1346 Signed By: 12/12/24 1353 [facility] Work Phone: 1(577) 747-397708-27-2025 [facility]iology [facility] [place] [address] [place] [address] CT Scan Report Signed Patient: Tavo Wallis Jr MR# : [id number] : 1940 Acct:[id number] Age/Sex: 84 / M ADM Date: 5 Loc: CT Room: Type: [facility] Attending Dr: Jovany Stovall MD Copies [...] use of the iterative reconstruction technique. HISTORY: Left lower extremity radiculopathy. History of prior decompressive laminectomy. History oftumor resection COMPARISON: MRI lumbar spine 04/03/2024 FINDINGS: [...] endplate spurring. Patent bony central canal. Patent neuralforamen L2-3: Disc space narrowing, endplate spurring and [...] Cardoso M.D. 10/31/2024 5:33 PM Dictation Location: [place] [address] Transcribed By: [facility] 10/31/24 1733 Dictated By: Esa Cardoso DO 10/31/24 1726 Signed By: 10/31/24 1733 [facility]08-27-2025 Radiology Diagnostic study note [facility] [place] [address] [place] [address] CT Scan Report Signed Patient: Tavo Wallis Jr MR# : [id number] : 1940 Acct:[id number] Age/Sex: 84 / M ADM Date: 5 Loc: CT Room: Type: [facility] Attending Dr: Jovany Stovall MD Copies to: Jovany Stovall MD~ Ordering Provider: Jovany Stovall MD Date of Service: 10/31/24 CT/CT head/brain wo con: Evaluate hemorrhage Unenhanced head CT TECHNIQUE: Contiguous axial imaging of the head. The CT exam was performed usingone or more the following dose reduction techniques: Automated exposure control,adjustment of the MA and/or Kv according to patient size, or use of the iterative reconstruction technique. COMPARISON: 10/07/2024 HISTORY: Evaluate hemorrhage. VENTRICLES: Within normal limits ATROPHY: Similar diffuse atrophy BRAIN PARENCHYMA: Adequate hensley-white matter differentiation identified. HEMORRHAGE: Hyperdense right subdural hematoma no longer seen. HERNIATION: No mass effect or herniation INFARCTION: No recent vascular distribution infarction is seen. EXTRA-AXIAL FLUID COLLECTIONS None MIDBRAIN: Unremarkable RICKI: Unremarkable MEDULLA: Unremarkable SINUSES: Unremarkable ORBITS: Grossly unremarkable MASTOIDS: Unremarkable BONY STRUCTURES Intact ADDITIONAL FINDINGS: Left frontal scalp hematoma. Decreased density. Decreased size thickness up to14 mm. Prior measurement up to 2.[address]/CT head/brain wo con IMPRESSION: Resolution of right high convexity subdural hematoma. Improving left frontal scalp hematoma. Impression dictated by: Esa Cardoso M.D. 10/31/2024 5:26 PM Dictation Location: [place] [address] Transcribed By: [facility] 10/31/241725 Dictated By: Esa Cardoso DO 10/31/24 171 Signed By: 10/31/241725 [facility]08-05-2025 Progress note Author Frankie Johnson [facility]Note Date/TimeAugust 2024 12:52[place] [address] Hospitalist Progress Note Signed Patient: Tavo Wallis Jr MR# : [id number] : 1940 Acct:[id number] Age/Sex: 84 / M Adm Date: 5 Loc: Room: [address] [place] [address] Type: ADM IN Attending Dr: Frankie Johnson DO Copies to: ~ Date of Service: 10/09/2024 Subjective Subjective Narrative: Patient was seen and examined at the bedside today. No new complaints. Physical Examination: GENERAL APPEARANCE: Alert, up in bed AAOx3 CARDIAC: Normal S1 and S2. LUNGS: Clear to auscultation bilaterally. no wheeze/rhonchi/rales ABDOMEN: Positive bowel sounds. Soft, nontender. No guarding or signs of an acute abdomen MUSCULOSKELETAL: No joint erythema or tenderness. SKIN: Skin normal color, texture and turgor with no lesions or eruptions. PSYCHIATRIC: Appropriate mood and affect Exam Physical Exam Vital Signs: Temp Pulse Resp BP Pulse Ox O2 Del Method O2 Flow Rate 97.9 F 102 H 20 104/59 L 97 Room Air 2 10/09/24 07:42 10/09/24 07:42 10/09/24 07:42 10/09/24 07:42 10/09/24 07:42 10/09/24 07:42 10/07/24 03:35 Objective Lab Results 10/08/24 06:57 10/08/24 06:57 Microbiology Results Microbiology 10/07/24 18:40 Urine - Chou Urine Culture - Final No Growth 2 Days 10/06/24 20:16 Blood - Left Wrist Blood Culture - Preliminary No Growth 2 Days 10/06/24 19:47 Blood - Left Hand Blood Culture - Preliminary No Growth 2 Days 10/06/24 19:55 Urine - Chou Catheter Urine Culture - Final Enterococcus faecalis Meds Allergies and Active Meds Allergies fentanyl Allergy (Unknown, Verified 10/05/24 18:00) Dizziness, loopy indomethacin (From Indocin) Allergy (Unknown, Verified 10/05/24 18:00) Dizziness zolpidem (From Ambien) Allergy (Unknown, Verified 10/05/24 18:00) Confusion, memory loss Penicillins Allergy (Verified 10/09/24 10:38) Weakness Active Meds: Active Medications Generic Name Dose Route Start Last Admin Trade Name Freq PRN Reason Stop Dose Admin Acetaminophen 500 mg 10/06/24 05:25 10/07/24 18:49 Acetaminophen 500 Mg Tablet PO 10/06/25 05:24 500 mg TID PRN Administration Pain Allopurinol 300 mg 10/06/24 09:00 10/09/24 08:44 Allopurinol 300 Mg Tablet PO 10/06/25 08:59 300 mg DAILY ANIBAL Administration Atorvastatin Calcium 40 mg 10/06/24 22:00 10/08/24 21:20 Atorvastatin 40 Mg Tablet PO 10/06/25 21:59 Not Given QHS ANIBAL Bumetanide 1 mg 10/06/24 09:00 10/09/24 08:44 Bumetanide 1 Mg Tablet PO 10/06/25 08:59 1 mg DAILY ANIBAL Administration Vancomycin HCl 1.5 gm/ 530 mls @ 353.333 mls/hr 10/08/24 08:00 10/09/24 08:44 Dextrose IV 10/08/25 07:59 353.33 mls/hr Q24H ANIBAL Administration Levothyroxine Sodium 150 mcg 10/06/24 06:30 10/09/24 06:19 Levothyroxine 150 Mcg Tablet PO 10/06/25 06:29 150 mcg DAILY.0630 ANIBAL Administration Magnesium Oxide 400 mg 10/06/24 09:00 10/09/24 08:44 Magnesium Oxide 400 Mg Tablet PO 10/06/25 08:59 400 mg DAILY ANIBAL Administration Nystatin 1 applic 10/06/24 09:00 10/09/24 08:44 Nystatin 100,000 Unit/Gram Powder 15 Gm Bottle TOPICAL 10/06/25 08:59 1 applic BID ANIBAL Administration Oxycodone HCl 5 mg 10/06/24 05:26 10/09/24 09:57 Oxycodone Ir 5 Mg Tablet PO 5 mg Q4HR PRN Administration Moderate Pain Potassium Chloride 20 meq 10/06/24 22:00 10/08/24 21:21 Potassium Chloride Er 20 Meq Tab.Er.Prt PO 10/06/25 21:59 Not Given QHS ANIBAL Sodium Chloride 0 ml 10/05/24 17:59 10/07/24 19:55 Sodium Chloride 0.9 % 10 Ml Syringe IV-PUSH 10/05/25 17:58 10 ml PRN PRN Administration Flush Vancomycin HCl 1 each 10/08/24 08:00 Vancomycin - Pharmacy Dosing 1 Each Miscell IV ONCE PRN ZZ.Pharmacy Consult Protocol A&P - Hospitalist Assessment/Plan (1) Intracranial hemorrhage: Plan: Initial CT scan on admission shows subdural hematoma measuring 4 mm in thickness, this has been unchanged on serial exams. ? Neurosurgery on consult, no intervention necessary ? Continue to hold blood thinner (2) Catheter-associated urinary tract infection: Plan: ? Patient does not seem encephalopathic today. He has been on meropenem. Briefly vancomycin for MRSA swab. Note Enterococcus growing in the urine. Awaiting sensitivities. Based on response to meropenem Enterococcus may or may not represent infectious organism ? He was initiated on vancomycin and meropenem due to a positive nasal swab for MRSA as well as hisprior urine cultures in the past, most recently of August 27, 2024 he has Citrobacter and Pseudomonas, in September 2024 he had Achromobacter. (3) Fall: Plan: Mechanical, PT OT is consulted (4) Abrasion of arm, left: (5) Fever: Plan: See above Plan ? DVT prophylaxis addressed ? Regular diet ? Full code Documented By: Frankie Johnson DO 10/09/24 12 51 Signed By: <Electronically signed by Frankie Johnson DO> 10/09/24 [facility]2 [facility] Work Phone: 1(354) 685-571308-04-2025 Progress note Author Frankie Johnson [facility] Date/TimeAugust 2024 8:15[place] [address] Hospitalist Progress Note Signed Patient: Tavo Wallis Jr MR# : [id number] : 1940 Acct:[id number] Age/Sex: 84 / M Adm Date: 5 Loc: Room: [address] [place] [address] Type: ADM IN Attending Dr: Frankie Johnson DO Copies to: ~ Date of Service: 10/08/2024 Subjective Subjective Narrative: Patient was seen and examined at the bedside today. No new complaints. Physical Examination: GENERAL APPEARANCE: Alert, up in bed AAOx3 CARDIAC: Normal S1 and S2. LUNGS: Clear to auscultation bilaterally. no wheeze/rhonchi/rales ABDOMEN: Positive bowel sounds. Soft, nontender. No guarding or signs of an acute abdomen MUSCULOSKELETAL: No joint erythema or tenderness. SKIN: Skin normal color, texture and turgor with no lesions or eruptions. PSYCHIATRIC: Appropriate mood and affect Exam Physical Exam Vital Signs: Temp Pulse Resp BP Pulse Ox O2 Del Method O2 Flow Rate 98.2 F 115 H 19 90/58 L 96 Room Air 2 10/08/24 08:00 10/08/24 08:00 10/08/24 08:00 10/08/24 08:00 10/08/24 08:00 10/08/24 08:00 10/07/24 03:35 Objective Lab Results 10/08/24 06:57 10/08/24 06:57 Microbiology Results Microbiology 10/06/24 20:16 Blood - Left Wrist Blood Culture - Preliminary No Growth 1 Day 10/06/24 19:47 Blood - Left Hand Blood Culture - Preliminary No Growth 1 Day 10/06/24 19:55 Urine - Chou Catheter Urine Culture - Preliminary Enterococcus faecalis Meds Allergies and Active Meds Allergies fentanyl Allergy (Unknown, Verified 10/05/24 18:00) Dizziness, loopy indomethacin (From Indocin) Allergy (Unknown, Verified 10/05/24 18:00) Dizziness zolpidem (From Ambien) Allergy (Unknown, Verified 10/05/24 18:00) Confusion, memory loss Penicillins Allergy (Verified 10/05/24 18:00) Weakness Active Meds: Active Medications Generic Name Dose Route Start Last Admin Trade Name Freq PRN Reason Stop Dose Admin Acetaminophen 500 mg 10/06/24 05:25 10/07/24 18:49 Acetaminophen 500 Mg Tablet PO 10/06/25 05:24 500 mg TID PRN Administration Pain Allopurinol 300 mg 10/06/24 09:00 10/08/24 08:08 Allopurinol 300 Mg Tablet PO 10/06/25 08:59 300 mg DAILY ANIBAL Administration Atorvastatin Calcium 40 mg 10/06/24 22:00 10/07/24 21:46 Atorvastatin 40 Mg Tablet PO 10/06/25 21:59 40 mg QHS ANIBAL Administration Bumetanide 1 mg 10/06/24 09:00 10/08/24 08:08 Bumetanide 1 Mg Tablet PO 10/06/25 08:59 1 mg DAILY ANIBAL Administration Vancomycin HCl 1.5 gm/ 530 mls @ 353.333 mls/hr 10/08/24 08:00 Dextrose IV 10/08/25 07:59 Q24H ANIBAL Levothyroxine Sodium 150 mcg 10/06/24 06:30 10/08/24 06:13 Levothyroxine 150 Mcg Tablet PO 10/06/25 06:29 Not Given DAILY.0630 [facility] Magnesium Oxide 400 mg 10/06/24 09:00 10/08/24 08:08 Magnesium Oxide 400 Mg Tablet PO 10/06/25 08:59 400 mg DAILY ANIBAL Administration Nystatin 1 applic 10/06/24 09:00 10/08/24 08:08 Nystatin 100,000 Unit/Gram Powder 15 Gm Bottle TOPICAL 10/06/25 08:59 1 applic BID ANIBAL Administration Oxycodone HCl 5 mg 10/06/24 05:26 10/07/24 21:49 Oxycodone Ir 5 Mg Tablet PO 5 mg Q4HR PRN Administration Moderate Pain Potassium Chloride 20 meq 10/06/24 22:00 10/07/24 21:46 Potassium Chloride Er 20 Meq Tab.Er.Prt PO 10/06/25 21:59 20 meq QHS ANIBAL Administration Sodium Chloride 0 ml 10/05/24 17:59 10/07/24 19:55 Sodium Chloride 0.9 % 10 Ml Syringe IV-PUSH 10/05/25 17:58 10 ml PRN PRN Administration Flush Vancomycin HCl 1 each 10/08/24 08:00 Vancomycin - Pharmacy Dosing 1 Each Miscell IV ONCE PRN ZZ.Pharmacy Consult Protocol A&P - Hospitalist Assessment/Plan (1) Intracranial hemorrhage: Plan: Initial CT scan on admission shows subdural hematoma measuring 4 mm in thickness, this has been unchanged on serial exams. ? Neurosurgery on consult, no intervention necessary ? Continue to hold blood thinner (2) Catheter-associated urinary tract infection: Plan: ? Patient does not seem encephalopathic today. He has been on meropenem. Briefly vancomycin for MRSA swab. Note Enterococcus growing in the urine. Awaiting sensitivities. Based on response to meropenem Enterococcus may or may not represent infectious organism ? He was initiated on vancomycin and meropenem due to a positive nasal swab for MRSA as well as hisprior urine cultures in the past, most recently of August 27, 2024 he has Citrobacter and Pseudomonas, in September 2024 he had Achromobacter. (3) Fall: Plan: Mechanical, PT OT is consulted (4) Abrasion of arm, left: (5) Fever: Plan: See above Plan ? DVT prophylaxis addressed ? Regular diet ? Full code Documented By: Frankie Johnson DO 10/08/24 08 11 Signed By: <Electronically signed by Frankie Johnson DO> 10/08/[address] [facility] Work Phone: 1([phone]) 871-946908-03-2025 Progress note Author Franck Gagnon [facility] Date/TimeAugust 2024 10:[place] [id number] Hospitalist Progress Note Signed with Addenda Patient: Tavo Wallis Jr MR# : [id number] : 1940 Acct:[id number] Age/Sex: 84 / M Adm Date: 5 Loc: Room: [address] [place] [address] Type: ADM INOo Attending Dr: Franck Gagnon DO Copies to: ~ ADDENDUM1 No concerns for pneumonia, will ignore the MRSA swab and stop the vancomycin. Continue meropenem asordered. Addendum Documented By: Franck Gagnon DO 10/07/24 1010 Addendum Signed By: <Electronically signed by Franck Gagnon DO> 10/07/24 1010 Date of Service: 10/07/2024 Subjective Subjective Narrative: Seen and evaluated, events of yesterday evening were reviewed. Patient was febrile for multiple hours and he was quite confused/lethargic. This did improve with time, septic workup was initiated. This morning the patient appears very similar as he did yesterday, he is little bit stoic but he is alertand oriented, he knows he is in the hospital. He is able to frustratingly tell me that he stubbed his toe which led to his fall. Exam Physical Exam Vital Signs: Temp Pulse Resp BP Pulse Ox O2 Del Method O2 Flow Rate 97.9 F 104 H 18 92/54 L 98 Room Air 2 10/07/24 07:31 10/07/24 07:31 10/07/24 07:31 10/07/24 08:55 10/07/24 07:31 10/07/24 07:34 10/07/24 03:35 Narrative: General: Awake alert, no acute distress, slightly stoic HEENT: head atraumatic, normocephalic, moist mucous membranes, numerous hematomas on his face, no significantly around his left orbit. Neck: supple no masses, no lymphadenopathy CVS: regular rate and rhythm, no murmurs or gallops Respiratory: clear to auscultation bilaterally, no wheezing or crackles, symmetric expansion GI: soft, nondistended, nontender, positive bowel sounds with no organomegaly Extremity: moves all extremities, no restrictions of movements, no calf tenderness, no edema Neuro: AOx3, CN II-VII intact. Moves all extremities in all planes of motion. Skin: dry, intact no rashes or lesions Objective Lab Results 10/07/24 08:01 10/05/24 19:30 Microbiology Results Microbiology 10/06/24 23:05 Nasal Nasal Screen MRSA/MSSA - Final Meds Allergies and Active Meds Allergies fentanyl Allergy (Unknown, Verified 10/05/24 18:00) Dizziness, loopy indomethacin (From Indocin) Allergy (Unknown, Verified 10/05/24 18:00) Dizziness zolpidem (From Ambien) Allergy (Unknown, Verified 10/05/24 18:00) Confusion, memory loss Penicillins Allergy (Verified 10/05/24 18:00) Weakness Active Meds: Active Medications Generic Name Dose Route Start Last Admin Trade Name Freq PRN Reason Stop Dose Admin Acetaminophen 500 mg 10/06/24 05:25 10/07/24 04:49 Acetaminophen 500 Mg Tablet PO 10/06/25 05:24 500 mg TID PRN Administration Pain Allopurinol 300 mg 10/06/24 09:00 10/07/24 08:53 Allopurinol 300 Mg Tablet PO 10/06/25 08:59 300 mg DAILY ANIBAL Administration Atorvastatin Calcium 40 mg 10/06/24 22:00 10/06/24 21:11 Atorvastatin 40 Mg Tablet PO 10/06/25 21:59 40 mg QHS ANIBAL Administration Bumetanide 1 mg 10/06/24 09:00 10/06/24 09:17 Bumetanide 1 Mg Tablet PO 10/06/25 08:59 1 mg DAILY ANIBAL Administration Meropenem 1 gm in 100 mls @ 33.333 mls/hr 10/07/24 08:00 10/07/24 08:54 Merrem IV 33.33 mls/hr Q12H ANIBAL Administration Vancomycin HCl 1.5 gm/ 530 mls @ 353.333 mls/hr 10/07/24 02:00 10/07/24 01:52 Dextrose IV 10/07/25 01:59 353.33 mls/hr Q24H ANIBAL Administration Levothyroxine Sodium 150 mcg 10/06/24 06:30 10/07/24 05:44 Levothyroxine 150 Mcg Tablet PO 10/06/25 06:29 Not Given DAILY.0630 ANIBAL Magnesium Oxide 400 mg 10/06/24 09:00 10/07/24 08:53 Magnesium Oxide 400 Mg Tablet PO 10/06/25 08:59 400 mg DAILY ANIBAL Administration Nystatin 1 applic 10/06/24 09:00 10/07/24 09:00 Nystatin 100,000 Unit/Gram Powder 15 Gm Bottle TOPICAL 10/06/25 08:59 1 applic BID ANIBAL Administration Oxycodone HCl 5 mg 10/06/24 05:26 10/06/24 14:33 Oxycodone Ir 5 Mg Tablet PO 5 mg Q4HR PRN Administration Moderate Pain Potassium Chloride 20 meq 10/06/24 22:00 10/06/24 21:19 Potassium Chloride Er 20 Meq Tab.Er.Prt PO 10/06/25 21:59 Not Given QHS ANIBAL Sodium Chloride 0 ml 10/05/24 17:59 10/07/24 08:54 Sodium Chloride 0.9 % 10 Ml Syringe IV-PUSH 10/05/25 17:58 10 ml PRN PRN Administration Flush Vancomycin HCl 1 each 10/07/24 01:05 Vancomycin - Pharmacy Dosing 1 Each Miscell IV ONCE PRN ZZ.Pharmacy Consult Protocol A&P - Hospitalist Assessment/Plan (1) Intracranial hemorrhage: Plan: Initial CT scan on admission shows subdural hematoma measuring 4 mm in thickness, this has been unchanged on serial exams. ? Neurosurgery on consult, no intervention necessary ? Continue to hold blood thinner (2) Catheter-associated urinary tract infection: Plan: ? Patient was febrile and confused yesterday evening ? UA consistent with infection ? He was initiated on vancomycin and meropenem due to a positive nasal swab for MRSA as well as hisprior urine cultures in the past, most recently of August 27, 2024 he has Citrobacter and Pseudomonas, in September 2024 he had Achromobacter. ? Urine culture pending. ? Will plan to de-escalate antibiotics once cultures will guide us (3) Fall: Plan: Mechanical, PT OT is consulted (4) Abrasion of arm, left: (5) Fever: Plan: See above Plan ? DVT prophylaxis addressed ? Regular diet ? Full code Documented By: Franck Gagnon DO 10/07/24 0950 Signed By: <Electronically signed by Franck Gagnon DO> 10/07/24 0959 [facility] Work Phone: 1(658) 359-707908-03-2025 Progress note Author Jovany Stovall [facility]Note Date/TimeAugust 2024 9:04[place] [address] Neurosurgery Progress Note Signed Patient: Tavo Wallis Jr MR# : [id number] : 1940 Acct:[id number] Age/Sex: 84 / M Adm Date: 5 Loc: 3T Room: [address] [place] [address] Type: ADM INOo Attending Dr: Franck Gagnon DO Copies to: ~ Date of Service: 10/07/2024 Subjective Subjective HPI: No new complaints today. Exam Physical Exam Vital Signs: Temp Pulse Resp BP Pulse Ox O2 Del Method O2 Flow Rate 97.9 F 104 H 18 95/58 L 98 Room Air 2 10/07/24 07:31 10/07/24 07:31 10/07/24 07:31 10/07/24 07:31 10/07/24 07:31 10/07/24 07:34 10/07/24 03:35 Narrative: Contusions appear very similar Neck supple Extremities appear to be at baseline Objective Lab Results Most Recent Labs: 10/07/24 08:01: Corrected WBC 6.7, RBC 2.94 L, Hgb 8.9 L, Hct 27.2 L, MCV 92.6, MCH 30.2, MCHC 32.6, RDW 17.6 H, Plt Count 177, MPV 7.8 10/06/24 23:03: POC Glucose 102 10/06/24 19:55: Urine Color Light-yellow, Urine Appearance Clear, Urine pH 5.5, Ur Specific Gravity1.018, Urine Protein Trace H, Urine Glucose (UA) Normal, Urine Ketones Negative, Urine Occult Blood2+ H, Urine Nitrite Positive H, UrineBilirubin Negative, Urine Urobilinogen Normal, Ur Leukocyte Esterase 4+ H, UrineRBC 10-19 H, Urine WBC 20-49 H, Ur Squamous Epith Cells N/A, Urine Bacteria 1+ H, Hyaline Casts None, Urine Mucus Rare Microbiology Micro: Microbiology 10/06/24 23:05 Nasal Nasal Screen MRSA/MSSA - Final Assessment/Plan Assessment/Plan (1) Fall: (2) Intracranial hemorrhage: Plan The patient now has 4 CAT scans that have almost identical appearance. I would not do another CAT scan if this patient gets confused. If a focal neurologic deficit occurred I certainly would do a CT it is highly likely that this is a small bleed that is quite stable. Normally I think this patient could go back on his Eliquis. However he appears to be to be a significant fall risk and I think the use of Eliquis in this case needs to be revisited. He is already proven that he can have an intracranial hemorrhage on a blood thinner I am not certain if it is appropriate to continue with this this needs to be determined by medicine and cardiology. I will follow the patient up in my office in [id number] of the head. He could be seen by my nurse practitioner atthat time. Documented By: Jovany Stovall MD 10/07/24901 Signed By: <Electronically signed by MD Jovany Stovall> 10/07/24903 [facility] Work Phone: 1(843) 329-539808-03-2025 Radiology Diagnostic study [facility] Work Phone: 1([phone]) 105-208608-03-2025 Radiology Diagnostic study [facility] Work Phone: 1(736) 430-475808-02-2025 Progress note Author Michele Knight [facility]Note Date/TimeAugust 2024 8:[place] [address] Progress Note Signed Patient: Tavo Wallis Jr MR# : [id number] : 1940 Acct:[id number] Age/Sex: 84 / M Adm Date: 5 Loc: 3T Room: [address] [place] [address] Type: ADM INOo Attending Dr: Franck Gagnon DO Copies to: ~ Date of Service: 10/06/2024 Progress Narrative Note PROGRESS NOTE Progress Note: Concern for change in mental status, patient assessed. Easily arousable to verbal however not conversant, states not oriented to place, limited to one- wordanswers primarily Ok and yup , clinical change from reported assessment from earlier in the day when patient was able to recall events of presentation. Limited participation in physical exam, is able to wiggle toes, however unable to assess strength or sensation. Given change in mentation we will proceed withstat repeat CT brain without contrast to rule out change in. Also has new fever 102.6, will proceed with workup with chest x-ray, blood cultures urine cultures urine analysis, low threshold for starting antibiotics. Disposition pending CT brain. - CT brain does not appear to have significant change from prior, pending final read - CXR shows slightly worsened opacities compared to prior on 07/29, pending finalread, U/A consistent with UTI (WBC 20-49) - will consider mental status change metabolic encephalopathy 2/2 sepsis, ok to remain on floor fornow - start meropenem given unclear source of sepsis, UTI vs pneumonia, recent admission with IV antibiotics Documented By: Michele Knight MD 10/06/241932 Signed By: <Electronically signed by Michele Knight MD> 10/06/242031 [facility] Work Phone: [phone]) [phone] Radiology Diagnostic study [facility] Work Phone: [phone]) 312-140208-02-2025 Progress note Author Franck Gagnon [facility] Date/TimeAugust 2024 11:47[place] [address] Hospitalist Progress Note Signed Patient: Tavo Wallis Jr MR# : [id number] : 1940 Acct:[id number] Age/Sex: 84 / M Adm Date: 5 Loc: 3T Room: [address] [place] [address] Type: ADM INOo Attending Dr: Franck Gagnon DO Copies to: ~ Date of Service: 10/06/2024 Subjective Subjective Narrative: Mr. Wallis is a 84-year-old male presented to the emergency department on 10/05 after a fall from his wheelchair. It was reported he suffered significant traumato the left eye region with significant surrounding periorbital edema on arrivaland that there was continued bleeding from the area despite being addressed withbandages. Patient denied ay near syncopal or syncopal symptoms leading to or following his fall, and states he stubbed his toe and it all happened from there. The patient recallshitting both arms during the fall. Patient switches between using a wheelchair and a walker at homedue to chronic pain. He does take the blood thinner Eliquis. On exam patient with bilateral orbitalecchymosis and edema with a hematoma noted to the left frontal scalp. Patient answers all questionsappropriately. Patient was hospitalized under the hospitalist service under observation. Patient has a past medical history of HTN, A-fib, venous insufficiency, neuropathic pain, multiple joint pain, meningioma, lumbar spondylolysis and degenerative disc disease, HLD, gout, cardiomyopathy, frequent falls, HFrEF. He also has a history of multiple orthopedic surgeries. Patient was examined at bedside today. Patient says vision is blurry out of lefteye due to swelling. Patient denies headache, double vision, fever, chills, nausea, vomiting, chest pain, chest tightness, difficulty breathing, cough, wheezing, and abdominal pain. Exam Physical Exam Vital Signs: Temp Pulse Resp BP Pulse Ox O2 Del Method 98.5 F 108 H 18 129/71 96 Room Air 10/06/24 09:09 10/06/24 09:09 10/06/24 09:09 10/06/24 09:09 10/06/24 09:09 10/06/24 09:09 Const General: cooperative and no acute distress Orientation: alert, awake and oriented x3 HEENT Head: scalp tenderness and other (Hematoma to left frontal skull) Face and sinus: ecchymosis on the left Eyes Periorbital: periorbital findings abnormal (facial swelling) Resp Auscultation: clear to auscultation bilaterally, no rales, no rhonchi and no wheezes Cardio Rate: tachycardic Heart Sounds: S1 normal and S2 normal Neuro General: patient alert, patient awake and patient oriented x3 Motor: strength 5/5 throughout Other: no focal deficits Extrem Other: both forearms bandaged Objective Lab Results 10/05/24 19:30 10/05/24 19:30 Meds Allergies and Active Meds Allergies fentanyl Allergy (Unknown, Verified 10/05/24 18:00) Dizziness, loopy indomethacin (From Indocin) Allergy (Unknown, Verified 10/05/24 18:00) Dizziness zolpidem (From Ambien) Allergy (Unknown, Verified 10/05/24 18:00) Confusion, memory loss Penicillins Allergy (Verified 10/05/24 18:00) Weakness Active Meds: Active Medications Generic Name Dose Route Start Last Admin Trade Name Freq PRN Reason Stop Dose Admin Acetaminophen 500 mg 10/06/24 05:25 Acetaminophen 500 Mg Tablet PO 10/06/25 05:24 TID PRN Pain Allopurinol 300 mg 10/06/24 09:00 10/06/24 09:17 Allopurinol 300 Mg Tablet PO 10/06/25 08:59 300 mg DAILY ANIBAL Administration Atorvastatin Calcium 40 mg 10/06/24 22:00 Atorvastatin 40 Mg Tablet PO 10/06/25 21:59 QHS ANIBAL Bumetanide 1 mg 10/06/24 09:00 10/06/24 09:17 Bumetanide 1 Mg Tablet PO 10/06/25 08:59 1 mg DAILY ANIBAL Administration Levothyroxine Sodium 150 mcg 10/06/24 06:30 10/06/24 06:29 Levothyroxine 150 Mcg Tablet PO 10/06/25 06:29 150 mcg DAILY.0630 ANIBAL Administration Magnesium Oxide 400 mg 10/06/24 09:00 10/06/24 09:17 Magnesium Oxide 400 Mg Tablet PO 10/06/25 08:59 400 mg DAILY ANIBAL Administration Nystatin 1 applic 10/06/24 09:00 Nystatin 100,000 Unit/Gram Powder 15 Gm Bottle TOPICAL 10/06/25 08:59 BID ANIBAL Oxycodone HCl 5 mg 10/06/24 05:26 Oxycodone Ir 5 Mg Tablet PO Q4HR PRN Moderate Pain Potassium Chloride 20 meq 10/06/24 22:00 Potassium Chloride Er 20 Meq Tab.Er.Prt PO 10/06/25 21:59 QHS ANIBAL Sodium Chloride 0 ml 10/05/24 17:59 Sodium Chloride 0.9 % 10 Ml Syringe IV-PUSH 10/05/25 17:58 PRN PRN Flush A&P - Hospitalist Assessment/Plan (1) Fall: (2) Intracranial hemorrhage: Plan Mr. Wallis is a 84-year-old male presenting today following a fall from his wheelchair. Plan Fall Intracranial hemorrhage - Hold anticoagulation - Consulted neurosurgery, CT scan of head shows right frontal convexity extra- axial hyperdensity concerning for subdural hematoma. - Repeat CT scan the morning of 10/07 and compare to scan from 10/06 - CBC 10/05: RBC 3.08, Hgb 9.3, Hct 28.3, RDW 17.5 - Coagulation studies 10/05: PT 26.6, APTT 41 - glucose 10/05: 105 - Alk Phos 10/05: 157 - Fall risk precautions - After discharge, encourage patient to continue strengthening exercises for extremities. - Consider possible PT referral Anabela Adkins, MAURICE-III I personally saw this patient on the day of the encounter, reviewed the history,performed the morrison elements of the exam, formulated the plan of care and confirmed Student Dr. Anabela Adkins, the patient was seen evaluate this morning, he is currently lying in bed. There is evidence of head trauma particular on his left eye, he has numerous areas of hematoma on his head. His CT scan on admission was questionable for subdural hematoma was meningioma, repeat CT scan this morning is more consistent with subdural hematoma. Will plan to keep patient 4 more night and repeat head scan tomorrow morning. Continue to hold patient's Eliquis, his cranial nerves are intact and he has no focal deficits. Neurosurgery is on consult. ?Franck Gagnon DO Documented By: Franck Gagnon DO 10/06/24 1054 Signed By: <Electronically signed by Franck Gagnon DO> 10/06/24 4422 [facility] Work Phone: [phone]) [phone] Consult note Author Jovany Stovall [facility]Note Date/TimeAugust 2024 9:00[place] [id number] Neurosurgery Consult Note Signed Patient: Tavo Wallis Jr MR# : [id number] : 1940 Acct:[id number] Age/Sex: 84 / M Adm Date: 5 Loc: 3T Room: [address] [place] [address] Type: ADM INOo Attending Dr: Franck Gagnon DO Copies to: DO Jovany Catalan MD Shawn J Warner, DO~ HPI History of Present Illness Consult Date: 10/06/2024 Requesting Provider: CC: Franck Gagnon DO Reason for Consult: Subdural hematoma History of Present Illness: This is a 84-year-old male presenting to the emergency department this evening after he fell from his wheelchair the previous evening. He suffered some significant facial trauma with a lot of left periorbital edema. He presented tot ER for care he denied any near syncopal event he had no nausea vomiting he has had no vision changes. He notes no new extremity changes. He is in a wheelchair primarily because he had spine surgery in February that became infected and apparently after his second surgery his spine is finally healing but he has got a lot of pain. Nothing is new with regard to his symptomatology. Review of Systems Review of Systems All other systems reviewed & are negative unless noted below or in HPI [facility] Medical History (Updated 10/06/24 @ 08:53 by Jovany Stovall MD) Intracranial hemorrhage Insomnia Hypothyroidism Hypertension Constipation BPH [...] 2011 History of total right knee replacement 2014 History of excision of Zenker's diverticulum Transcervial resection 2009 Family History Mother Alzheimers disease Hx of CABG CAD (coronary artery disease) Myocardial infarction Heart disease Hypertension Brother Myocardial infarction Father Hepatic cirrhosis Sister Cancer Brother Heart disease Legacy FamHx Relation: Brother(s) Son Cancer Legacy FamHx Problem: Diagnosed with Cancer Social History Smoking Status: Former smoker Tobacco Type: cigarettes Substance Use Type: None Substance Abuse Comment: 3 drinks a day >6 Social History Comments: [facility] Meds Medications and Allergies Allergies fentanyl Allergy (Unknown, Verified 10/05/24 18:00) Dizziness, loopy indomethacin (From Indocin) Allergy (Unknown, Verified 10/05/24 18:00) Dizziness zolpidem (From Ambien) Allergy (Unknown, Verified 10/05/24 18:00) Confusion, memory loss Penicillins Allergy (Verified 10/05/24 18:00) Weakness Home Medications magnesium oxide 400 mg PO DAILY 06/06/23 [History Confirmed 10/06/24] allopurinol 300 mg tablet 300 mg PO DAILY #90 tabs 06/09/23 [Rx Confirmed 10/05/24] levothyroxine 150 mcg tablet (Synthroid) 150 mcg PO QAM #90 tabs 11/29/23 [Rx Confirmed 10/06/24] trazodone 50 mg tablet 50 mg PO QHS PRN insomnia #90 tabs 11/29/23 [Rx Confirmed 10/05/24] bumetanide 1 mg tablet 1 mg PO DAILY 03/10/24 [History Confirmed 10/06/24] apixaban 2.5 mg tablet (Eliquis) 5 mg PO BID 07/12/24 [History Confirmed 10/06/24] potassium chloride 20 mEq tablet,extended release(part/cryst) (Klor-Con M) 20 meq PO QHS 07/12/24 [History Confirmed 10/06/24] acetaminophen 500 mg tablet (Acetaminophen Extra Strength) 500 mg PO TID PRN pain #20 tabs 07/17/24[Rx Confirmed 10/06/24] nystatin 100,000 unit/gram topical powder 1 applic topical BID #60 grams 09/12/24 [Rx Confirmed 10/05/24] atorvastatin 40 mg tablet 40 mg PO QHS 10/05/24 [History Confirmed 10/06/24] eszopiclone 3 mg tablet (Lunesta) 3 mg PO QHS 10/05/24 [History Confirmed 10/06/24] pramipexole 0.25 mg tablet 0.25 mg PO DAILY PRN tremor(s) 10/05/24 [History Confirmed 10/05/24] Exam Physical Exam Vital Signs: Temp Pulse Resp BP Pulse Ox O2 Del Method 98 F 105 H 16 138/83 96 Room Air 10/06/24 04:00 10/06/24 04:00 10/06/24 04:00 10/06/24 04:00 10/06/24 04:00 10/06/24 04:00 Narrative: Patient alert and cooperative Significant facial trauma with left periorbital edema and hematoma Left frontal hematoma Multiple skin abrasions edema swelling and wraps noted. Not able to lift right arm above head but can be moved passively with discomfortat the shoulder Left arm able to be lifted above head Left bicep and handgrip grossly 5/5 Iliopsoas hamstring quadricep anterior tibial and gastrocnemius grossly 5/5 withabnormal severely arthritic ankles Face overall symmetrical Results - Neurosurgery Lab Results Labs: Laboratory Results - Last 48 hrs. 10/05/24 19:30: Corrected WBC 5.7, Uncorrected WBC Count 5.7, RBC 3.08 L, Hgb 9.3 L, Hct 28.3 L, MCV 91.7, MCH 30.3, MCHC 33.1, RDW 17.5 H, Plt Count 217, MPV7.7, Neut % (Auto) 65.2, Lymph % (Auto) 19.8, [place] % (Auto) 9.9, Eos % (Auto) 4.7, Baso % (Auto) 0.4, Nucleat RBC Rel Count 0.2, Neut # (Auto) 3.7, Lymph # (Auto) 1.1, [place] # (Auto) 0.6, Eos # (Auto) 0.3, Baso # (Auto) 0.0, Monocyte Dist Width 19.41, PT 26.6 H, INR 2.4, APTT 41.0 H, PHA Creatinine Clear 44.79, Sodium 137, Potassium 4.2, Chloride 102, Carbon Dioxide 25.9, Anion Gap 13.3, BUN 18, Creatinine 1.11, Est GFR (CKD-EPI) > 60.0, Glucose 105 H, Calcium 9.4, Total Bilirubin 0.6, AST 16, ALT 6 L, Alkaline Phosphatase 157 H, Total Protein 6.7, Albumin 3.5, Globulin 3.2, Albumin/Globulin Ratio 1.1 Assessment/Plan (1) Fall: (2) Intracranial hemorrhage: Plan And appears to have had a L3-S1 decompressive laminectomy. He tells me that he had an infection cleaned out in the winter time after an initial surgery in February. Apparently has had a lot of chronic pain and has spent a lot of time in a wheelchair over the last several months he has been in the hospital for a prolonged period of time. He apparently fell struck his head he was on Eliquis CAT scan of the head showed a possible convexity subdural collection of blood relatively small. The follow-up CT of the head shows what appears to be a stable bleed.Because of this patient's Eliquis and obvious bleeding tendencies Iwould recommend a follow-up CT in the morning to check 1 more time. I do not think an MRI of the brain is needed at this point. I will see the patient againtomorrow with you. Documented By: Jovany Stovall MD 10/06/24 0850 Signed By: <Electronically signed by MD Jovany Stovall> 10/06/24 09 [facility] Work Phone: 1(213) 132-250608-02-2025 History and physical note Author Frankie Johnson [facility]Note Date/TimeAugust 2024 5:25[place] [address] Hospitalist H&P Signed Patient: Tavo Wallis Jr MR# : [id number] : 1940 Acct:[id number] Age/Sex: 84 / M Adm Date: 5 Loc: 3T Room: [address] [place] [address] Type: ADM INOo Attending Dr: Frankie Johnson DO Copies to: DO Frankie Catalan, ~ HPI DATE OF EXAMINATION: 10/06/24 CHIEF COMPLAINT: Fall HISTORY OF PRESENT ILLNESS: This patient is an 84-year-old male presenting to the emergency department this evening following afall from his wheelchair the evening previous. He suffered significant trauma to the left eye region with significant surrounding periorbital edema on arrival being noted. Despite addressing this with bandagesthere has been continued bleeding from the area. Presenting vital signs in the ER revealedtemperature 97.7 ?F, heart rate of 68 bpm, respirations 18/min, bloodpressure 133/76 mmHg, 98% oxygen saturation on room air. Patient denies any near syncopal or syncopal symptoms leading to or following this fall, no nausea or vomiting. He does take blood thinner Eliquis. On exam patient with bilateralorbital ecchymosis and edema with a hematoma noted to the left frontal scalp. Patient answers all questions appropriately. CT scan of the head shows right frontal convexity extra-axial hyperdensity concerning for meningioma versus subdural hematoma. Neurosurgery was contacted from the ER and recommended repeat CT scan in the morning. Laboratory evaluation revealed chronic anemia H&H of 9.3/28.3%, otherwise normal CBC, BUN/creatinine of 18/1.11, normal renal and hepatic parameters with the exception of alkaline phosphatase 157. Patient was hospitalized under the hospitalist service under observation. Physical Examination: GENERAL APPEARANCE: Alert, up in bed AAOx3 HEENT: MMM, hematoma (3 x 4 cm hematoma to the left frontal skull), scalp tenderness and facial swelling (Bilateral eye edema and ecchymosis) NECK: Neck soft w/o masses, no JVD CARDIAC: Normal S1 and S2. No S3, S4 or murmurs. LUNGS: Clear to auscultation bilaterally. no wheeze/rhonchi/rales ABDOMEN: Positive bowel sounds. Soft, nontender. No guarding or signs of an acute abdomen MUSCULOSKELETAL: No joint erythema or tenderness. EXTREMITIES: No clubbing, cyanosis or edema NEUROLOGICAL: No focal deficits PSYCHIATRIC: Appropriate mood and affect Assessment and plan: 1. Fall with head trauma 2. Subdural hematoma versus meningioma 3. Hypothyroidism 4. Atrial fibrillation 5. Benign prostatic hyperplasia 6. Anemia Repeat CT scan in the morning. Consult to neurosurgery. Hold anticoagulation. Continue home levothyroxine 150 mcg daily. Patient has both Lunesta, trazodone as well as pramipexole listed in his home medication list. Caution with sedating medications given fall risk. Continue fall precautions. Consult to PT/OT. [facility] Medical History Insomnia Hypothyroidism Hypertension Constipation BPH (benign prostatic [...] Bilateral- History of total left hip arthroplasty 2012 History of total right knee replacement 2015 [...] smoker Tobacco Type: cigarettes Substance Use Type: None Substance Abuse Comment: 3 drinks a day >6 Social History Comments: [facility] Meds Medications and Allergies Allergies fentanyl Allergy (Unknown, Verified 10/05/24 18:00) Dizziness, loopy indomethacin (From Indocin) Allergy (Unknown, Verified 10/05/24 18:00) Dizziness zolpidem (From Ambien) Allergy (Unknown, Verified 10/05/24 18:00) Confusion, memory loss Penicillins Allergy (Verified 10/05/24 18:00) Weakness Home Medications magnesium oxide 400 mg PO DAILY 06/06/23 [History Confirmed 10/06/24] allopurinol 300 mg tablet 300 mg PO DAILY #90 tabs 06/09/23 [Rx Confirmed 10/05/24] levothyroxine 150 mcg tablet (Synthroid) 150 mcg PO QAM #90 tabs 11/29/23 [Rx Confirmed 10/06/24] trazodone 50 mg tablet 50 mg PO QHS PRN insomnia #90 tabs 11/29/23 [Rx Confirmed 10/05/24] bumetanide 1 mg tablet 1 mg PO DAILY 03/10/24 [History Confirmed 10/06/24] apixaban 2.5 mg tablet (Eliquis) 5 mg PO BID 07/12/24 [History Confirmed 10/06/24] potassium chloride 20 mEq tablet,extended release(part/cryst) (Klor-Con M) 20 meq PO QHS 07/12/24 [History Confirmed 10/06/24] acetaminophen 500 mg tablet (Acetaminophen Extra Strength) 500 mg PO TID PRN pain #20 tabs 07/17/24[Rx Confirmed 10/06/24] nystatin 100,000 unit/gram topical powder 1 applic topical BID #60 grams 09/12/24 [Rx Confirmed 10/05/24] atorvastatin 40 mg tablet 40 mg PO QHS 10/05/24 [History Confirmed 10/06/24] eszopiclone 3 mg tablet (Lunesta) 3 mg PO QHS 10/05/24 [History Confirmed 10/06/24] pramipexole 0.25 mg tablet 0.25 mg PO DAILY PRN tremor(s) 10/05/24 [History Confirmed 10/05/24] Exam Physical Exam Vital Signs: Temp Pulse Resp BP Pulse Ox O2 Del Method 98 F 105 H 16 138/83 96 Room Air 10/06/24 04:00 10/06/24 04:00 10/06/24 04:00 10/06/24 04:00 10/06/24 04:00 10/06/24 04:00 Results - Hospitalist H&P Lab Results Labs: Laboratory Last Values Corrected WBC 5.7 X10E3/uL (4.1-10.5) 10/05/24 19:30 Uncorrected WBC Count 5.7 x10E3/uL (4.1-10.5) 10/05/24 19:30 RBC 3.08 x10E6/uL (3.90-5.60) L 10/05/24 19:30 Hgb 9.3 g/dL (13.0-17.0) L 10/05/24 19:30 Hct 28.3 % (38.8-50.0) L 10/05/24 19:30 MCV 91.7 fl (83.5-101) 10/05/24 19:30 MCH 30.3 pg (27.5-35.2) 10/05/24 19:30 MCHC 33.1 g/dL (32.5-35.6) 10/05/24 19:30 RDW 17.5 % (12.0-14.8) H 10/05/24 19:30 Plt Count 217 x10E3/uL (150-450) 10/05/24 19:30 MPV 7.7 fl (6.6-10.1) 10/05/24 19:30 Neut % (Auto) 65.2 % (.) 10/05/24 19:30 Lymph % (Auto) 19.8 % (.) 10/05/24 19:30 [place] % (Auto) 9.9 % (.) 10/05/24 19:30 Eos % (Auto) 4.7 % (.) 10/05/24 19:30 Baso % (Auto) 0.4 % (.) 10/05/24 19:30 Nucleat RBC Rel Count 0.2 /100 WBC (0-0.5) 10/05/24 19:30 Neut # (Auto) 3.7 x10E3/uL (1.8-7.7) 10/05/24 19:30 Lymph # (Auto) 1.1 x10E3/uL (1.00-4.8) 10/05/24 19:30 [place] # (Auto) 0.6 x10E3/uL (0.0-0.8) 10/05/24 19:30 Eos # (Auto) 0.3 x10E3/uL (0.0-0.45) 10/05/24 19:30 Baso # (Auto) 0.0 x10E3/uL (0.0-0.2) 10/05/24 19:30 Monocyte Dist Width 19.41 % (0.00-20.00) 10/05/24 19:30 PT 26.6 Seconds (9.0-12.9) H 10/05/24 19:30 INR 2.4 10/05/24 19:30 APTT 41.0 Seconds (25.1-36.5) H 10/05/24 19:30 PHA Creatinine Clear 44.79 10/05/24 19:30 Sodium 137 mmol/L (136-145) 10/05/24 19:30 Potassium 4.2 mmol/L (3.5-5.1) 10/05/24 19:30 Chloride 102 mmol/L (98-107) 10/05/24 19:30 Carbon Dioxide 25.9 mmol/L (21.0-31.0) 10/05/24 19:30 Anion Gap 13.3 mEq/L (6.0-15.0) 10/05/24 19:30 BUN 18 mg/dL (7-25) 10/05/24 19:30 Creatinine 1.11 mg/dL (0.70-1.30) 10/05/24 19:30 Est GFR (CKD-EPI) > 60.0 mL/Min 10/05/24 19:30 Glucose 105 mg/dL (70-100) H 10/05/24 19:30 Calcium 9.4 mg/dL (8.6-10.3) 10/05/24 19:30 Total Bilirubin 0.6 mg/dl (0.3-1.0) 10/05/24 19:30 AST 16 U/L (13-39) 10/05/24 19:30 ALT 6 U/L (7-52) L 10/05/24 19:30 Alkaline Phosphatase 157 U/L (34-104) H 10/05/24 19:30 Total Protein 6.7 gm/dL (6.4-8.9) 10/05/24 19:30 Albumin 3.5 gm/dL (3.5-5.7) 10/05/24 19:30 Globulin 3.2 gm/dL 10/05/24 19:30 Albumin/Globulin Ratio 1.1 10/05/24 19:30 Assessment & Plan Assessment/Plan (1) Fall: Plan . IP vs OBS Justification Based on differential dx, clinical care plan, and risk of adverse events, if untreated, in my clinical judgement this patient requires an acute care setting as: OBSERVATION because of an expectation of an under 2 midnight stay. Estimated length of stay (# of days): 2 Documented By: Frankie Johnson DO 10/06/2407 08 Signed By: <Electronically signed by Frankie Johnson DO> 10/06/24524 [facility] Work Phone: 1(988) 133-799608-01-2025 Radiology Diagnostic study [facility] Work Phone: [phone]) 990-978508-01-2025 Radiology Diagnostic study [facility] Work Phone: 1(998) 415-961608-01-2025 Radiology Diagnostic study [facility] Work Phone: 1(671) 349-272107-31-2025 Evaluation note* Diagnosis Onset Date Resolution Status Admit Date [...] 2024 2:39pmPressure ulcer of coccygeal region, stage 2acuteOctober 2024 2:39pmStage III pressure ulcer of right heelacute December 12, 2024 2:39pm [facility] Work Phone: 1(323) 731-253507-31-2025 Evaluation note* Diagnosis Onset Date Resolution Status Admit Date Catheter-associated urinary tract infect ion acuteJuly 2024 1:51pmCatheter-associated urinary tract infectionacute October 07, 2024 7:05amIntracranial hemorrhageacuteAugust 2024 7:05am Abrasion of arm, leftinactiveAugust 2024 7:05amFallinactiveAugust 2024 7:05amFeverdeletedAugust 2024 7:05amCompression fracture of L1 lumbar vertebraacuteSept2024 9:43amHx of decompressive lumbar laminectomy acuteSept2024 9:43amIntracranial hemorrhageacuteSeptember 2024 9:43amRadicular low back painacuteSept2024 9:43amSevere back pain acuteSept2024 9:43amFallsacuteOctober 2024 2:39pmPressure ulcer of coccygeal region, stage 2acuteOctober 2024 2:39pmStage III pressure ulcer of right heelacuteOct2024 2:39pmAtrial fibrillation with RVR resolvedOctober 2024 2:39pm [facility] Work Phone: 1(896) 734-842907-15-2025 Evaluation note* Diagnosis Onset Date Resolution Status Admit Date Hx of decompressive lumbar laminectomy acuteJuly 2024 3:12pmNeurogenic claudication due to lumbar spinal stenosis acuteJuly 2024 3:12pmRadicular low back painacuteJuly 2024 3:12pm Severe back painacuteJuly 2024 3:12pmCatheter-associated urinary tract infectionacuteJuly 2024 1:51pmCatheter-associated urinary tract infection acuteAugust 2024 7:05amIntracranial hemorrhageacuteAugust 2024 7:05am Abrasion of arm, leftinactiveAugust 2024 7:05amFallinactiveAugust 2024 7:05amFeverdeletedAugust 2024 7:05am [facility] Work Phone: 1(549) 916-441907-15-2025 Evaluation note* Diagnosis Onset Date Resolution Status Admit Date Hx of decompressive lumbar laminectomy acuteJuly 2024 3:12pmNeurogenic claudication due to lumbar spinal stenosis acuteJuly 2024 3:12pmRadicular low back painacuteJuly 2024 3:12pm Severe back painacuteJuly 2024 3:12pmCatheter-associated urinary tract infectionacuteJuly 2024 1:51pmCatheter-associated urinary tract infection acuteAugust 2024 7:05amIntracranial hemorrhageacuteAugust 2024 7:05am Abrasion of arm, leftinactiveAugust 2024 7:05amFallinactiveAugust 2024 7:05amFeverdeletedAugust 2024 7:05amCompression fracture of L1 lumbar vertebraacuteSeptember 2024 9:43amHx of decompressive lumbar laminectomy acuteSeptember 2024 9:43amIntracranial hemorrhageacuteSeptember 2024 9:43amRadicular low back painacuteSeptember 2024 9:43amSevere back pain acuteSeptember 2024 9:43am [facility] Work Phone: 1([phone]) 982-303107-15-2025 Evaluation note* Diagnosis Onset Date Resolution Status Admit Date Hx of decompressive lumbar laminectomy acuteJuly 2024 3:12pmNeurogenic claudication due to lumbar spinal stenosis acuteJuly 2024 3:12pmRadicular low back painacuteJuly 2024 3:12pm Severe back painacuteJuly 2024 3:12pmCatheter-associated urinary tract infectionacuteJuly 2024 1:51pmCatheter-associated urinary tract infection acuteAugust 2024 7:05amIntracranial hemorrhageacuteAugust 2024 7:05am Abrasion of arm, leftinactiveAugust 2024 7:05amFallinactiveAugust 2024 7:05amFeverdeletedAugust 2024 7:05amCompression fracture of L1 lumbar vertebraacuteSeptember 2024 9:43amHx of decompressive lumbar laminectomy acuteSept2024 9:43amIntracranial hemorrhageacuteSept2024 9:43amRadicular low back painacuteSeptember 2024 9:43amSevere back pain acuteSeptember 2024 9:43amAtrial fibrillation with RVRacuteOctober 2024 2:39pm [facility] Work Phone: 1([phone] 591-866305-13-2025 Progress note Author Frankie Reynolds [facility] HospitalNote Date/TimeMay 2024 8:[place] [address] Infect. Disease Progress Note Signed Patient: Tavo Wallis Jr MR# : [id number] : 1940 Acct:[id number] Age/Sex: 84 / M Adm Date: 5 Loc: Room: [address] [place] [address] Type: ADM IN Attending Dr: Mario Jordan MD Copies to: ~ Date of Service: 07/17/2024 Subjective Interval history: Patient without new physical complaints. Did get his PICC line in his right upper extremity yesterday. Continues on vancomycin and cefepime. Exam Physical Exam Vital Signs: Temp Pulse Resp BP Pulse Ox O2 Del Method O2 Flow Rate 97.9 F 73 18 124/69 98 Room Air 2 07/16/24 18:15 07/17/24 07:32 07/17/24 07:32 07/17/24 07:32 07/17/24 07:32 07/17/24 07:45 07/13/24 04:00 Const General: comfortable and no acute distress Orientation: oriented x3 HEENT Head: normal to inspection Ears: hearing grossly normal bilaterally Face and sinus: normal facial exam Mouth: oral mucosae normal Eyes General: appearance normal, both eyes and all related structures Neck Neck: normal visual inspection Chest Chest palpation & inspection: normal inspection of the chest Resp Effort & Inspection: normal respiratory effort Cardio Rate: regular rate Rhythm: regular rhythm GI Inspection: normal to inspection Palpation: soft and nontender Skin Other: Right lower leg with dressing intact. Extrem General: edema Objective Labs CBC/BMP: CBC, BMP 07/17/24 05:57 Corrected WBC 7.1 Uncorrected WBC Count 7.1 RBC 2.88 L Hgb 8.5 L Hct 25.8 L Plt Count 164 Microbiology Microbiology: Microbiology - Results from entire visit 07/15/24 12:15 Leg,Right - Abscess Aerobic Culture - Preliminary No Growth 1 Day 07/15/24 12:15 Leg,Right - Abscess Anaerobic Culture - Preliminary No Anaerobes Isolated 1 Day 07/15/24 12:15 Leg,Right - Abscess Gram Stain - Final 07/12/24 15:07 Blood - Left Forearm Blood Culture - Final Enterococcus faecalis Pseudomonas aeruginosa 07/12/24 15:07 Blood - Left Forearm Bacterial ID (NA Multiplex Assay) - Final 07/12/24 16:19 Clean Void Midstream Urine Culture - Final Pseudomonas aeruginosa Enterococcus faecalis 07/12/24 15:00 Blood - Left Arm Blood Culture - Final Pseudomonas aeruginosa 07/12/24 15:00 Blood - Left Arm Bacterial ID (NA Multiplex Assay) - Final 07/13/24 18:56 Nasal Nasal Screen MRSA/MSSA - Final 07/13/24 17:50 Stool Stool Occult Blood (BELLA) - Final 07/12/24 15:03 Nasopharyngeal SARS-CoV-2, Influenza & RSV (PCR) - Final Allergies and Medications Allergies and Active Meds Allergies fentanyl Allergy (Unknown, Verified 07/12/24 15:55) Dizziness, loopy indomethacin (From Indocin) Allergy (Unknown, Verified 07/12/24 15:55) Dizziness zolpidem (From Ambien) Allergy (Unknown, Verified 07/12/24 15:55) Confusion, memory loss Penicillins Allergy (Verified 07/12/24 15:55) Weakness Active Medications Acetaminophen (Acetaminophen 500 Mg Tablet) 500 mg PO TID ANIBAL Stop: 07/12/25 21:59 Last Admin: 07/17/24 08:15 Dose: 500 mg Acetaminophen (Acetaminophen 325 Mg Tablet) 650 mg PO Q6HR PRN PRN Reason: Pain Scale 1 - 3 or fever Stop: 07/12/25 16:59 Albuterol/Ipratropium (Ipratropium/Albuterol 0.5-3 Mg 3 Ml Ampul.Neb) 3 ml INHALATION Q6HR PRN PRN Reason: shortness of breath or wheezing Stop: 07/12/25 16:56 Allopurinol (Allopurinol 300 Mg Tablet) 300 mg PO DAILY [facility] Stop: 07/13/25 08:59 Last Admin: 07/17/24 08:15 Dose: 300 mg Apixaban (Apixaban 5 Mg Tablet) 5 mg PO BID [facility] Stop: 07/15/25 20:59 Last Admin: 07/17/24 08:15 Dose: 5 mg Atorvastatin Calcium (Atorvastatin 40 Mg Tablet) 40 mg PO DAILY [facility] Stop: 07/13/25 08:59 Last Admin: 07/17/24 08:15 Dose: 40 mg Bumetanide (Bumetanide 1 Mg Tablet) 1 mg PO DAILY@0800 [facility] Stop: 07/15/25 07:59 Last Admin: 07/17/24 08:15 Dose: 1 mg Cefepime HCl (Maxipime) 2 gm in 50 mls @ 12.5 mls/hr IV Q12H [facility] Last Admin: 07/17/24 08:15 Dose: 12.5 mls/hr Vancomycin HCl (Vancomycin) 1 gm in 250 mls @ 250 mls/hr IV Q24H [facility] Last Infusion: 07/16/24 12:00 Dose: Infused Levothyroxine Sodium (Levothyroxine 150 Mcg Tablet) 150 mcg PO DAILY.0630 [facility] Stop: 07/13/25 06:29 Last Admin: 07/17/24 08:15 Dose: 150 mcg Magnesium Oxide (Magnesium Oxide 400 Mg Tablet) 400 mg PO DAILY [facility] Stop: 07/13/25 08:59 Last Admin: 07/17/24 08:16 Dose: 400 mg Eszopiclone 3 Mg (Tablet) 3 mg PO QHS [facility] Stop: 07/12/25 21:59 Last Admin: 07/16/24 22:10 Dose: 3 mg Pom (Eszopiclone 3 (Mg Tablet)) 3 mg PO QHS [facility] Stop: 07/20/25 21:59 Oxycodone/Acetaminophen (Oxycodone/Acetaminophen 5-325 Mg Tablet) 1 tab PO Q4H PRN PRN Reason: Pain Scale 4 - 7 Last Admin: 07/13/24 22:05 Dose: 1 tab Polyethylene Glycol (Polyethylene Glycol 3350 17 Gm Powd.Pack) 17 gm PO BID ANIBAL Stop: 07/14/25 10:04 Last Admin: 07/17/24 08:16 Dose: Not Given Potassium Chloride (Potassium Chloride Er 20 Meq Tab.Er.Prt) 20 meq PO DAILY [facility] Stop: 07/13/25 08:59 Last Admin: 07/17/24 08:15 Dose: 20 meq Sennosides (Sennosides Syrup 8.8 Mg/5 Ml Udc) 8.8 mg PO BID ANIBAL Stop: 07/14/25 10:04 Last Admin: 07/17/24 08:16 Dose: Not Given Sodium Chloride (Sodium Chloride 0.9 % 10 Ml Syringe) 0 ml IV-PUSH PRN PRN PRN Reason: Flush Stop: 07/12/25 14:40 Last Admin: 07/16/24 20:08 Dose: 10 ml Trazodone HCl (Trazodone 50 Mg Tablet) 50 mg PO QHS PRN PRN Reason: insomnia Stop: 07/12/25 16:56 Last Admin: 07/14/24 21:14 Dose: 50 mg Vancomycin HCl (Vancomycin - Pharmacy Dosing 1 Each Miscell) 1 each IV ONCE PRN; Protocol PRN Reason: ZZ.Pharmacy Consult A&P - Infectious Disease Assessment/Plan (1) Sepsis: Qualifiers: Sepsis acute organ dysfunction status: without acute organ dysfunction (2) Complicated UTI (urinary tract infection): (3) Bacteremia due to Pseudomonas: (4) Bacteremia due to Enterococcus: (5) Abscess of left leg: Plan I&D of right lower leg found coagulated blood consistent with hematoma. Culturewith no growth. Fingering right lower extremity collection just a clotted hematoma. Remains on vancomycin and cefepime given his positive blood cultures which likely stems from a left-sided kidney infection given hydronephrosis and cystitis due to bladder wall thickening. Favor maintaining both vancomycin and cefepime for 9 more days Documented By: Frankie Reynolds MD 07/17/2449 Signed By: <Electronically signed by MD Frankie Reynolds> 07/17/2448 [facility] Work Phone: 1(185) 276-970905-12-2025 Progress note Author Mario Jordan [facility] HospitalNote Date/TimeMay 2024 2:[place] [address] Hospitalist Progress Note Signed Patient: Tavo Wallis Jr MR# : [id number] : 1940 Acct:[id number] Age/Sex: 84 / M Adm Date: 5 Loc: Room: [address] [place] [address] Type: ADM IN Attending Dr: Mario Jordan MD Copies to: ~ Date of Service: 07/16/2024 Subjective Subjective Narrative: Patient is comfortably lying in the bed and is on room air. No hematuria seen in urinary bag. Creatinine is 1.15 and downtrending. Exam Physical Exam Vital Signs: Temp Pulse Resp BP Pulse Ox O2 Del Method O2 Flow Rate 98.1 F 78 16 131/82 98 Room Air 2 07/16/24 08:00 07/16/24 08:00 07/16/24 08:00 07/16/24 08:00 07/16/24 08:00 07/16/24 08:00 07/13/24 04:00 Narrative: General: Awake alert, no acute distress HEENT: head atraumatic, normocephalic, moist mucous membranes Neck: supple no masses, no lymphadenopathy CVS: regular rate and rhythm, no murmurs or gallops Respiratory: diminished breath sound with crackles, no wheezing GI: soft, nondistended, nontender, positive bowel sounds with no organomegaly Extremity: moves all extremities, no restrictions of movements, no calf tenderness bilateral 3-4+ pedal edema, with small 3 to 4 cm swelling in the lateral aspect of the mid right leg with erythema and tenderness and fluctuance but not pulsatile Neuro: AOx3, CN II-VII intact. Moves all extremities in all planes of motion. Skin: intact no rashes or lesions Objective Lab Results 07/16/24 05:43 07/16/24 05:43 Microbiology Results Microbiology 07/15/24 12:15 Leg,Right - Abscess Aerobic Culture - Preliminary No Growth 1 Day 07/15/24 12:15 Leg,Right - Abscess Anaerobic Culture - Preliminary No Anaerobes Isolated 1 Day 07/15/24 12:15 Leg,Right - Abscess Gram Stain - Final 07/12/24 15:07 Blood - Left Forearm Blood Culture - Final Enterococcus faecalis Pseudomonas aeruginosa 07/12/24 15:07 Blood - Left Forearm Bacterial ID (NA Multiplex Assay) - Final 07/12/24 16:19 Clean Void Midstream Urine Culture - Final Pseudomonas aeruginosa Enterococcus faecalis Meds Allergies and Active Meds Allergies fentanyl Allergy (Unknown, Verified 07/12/24 15:55) Dizziness, loopy indomethacin (From Indocin) Allergy (Unknown, Verified 07/12/24 15:55) Dizziness zolpidem (From Ambien) Allergy (Unknown, Verified 07/12/24 15:55) Confusion, memory loss Penicillins Allergy (Verified 07/12/24 15:55) Weakness Active Meds: Active Medications Generic Name Dose Route Start Last Admin Trade Name Freq PRN Reason Stop Dose Admin Acetaminophen 500 mg 07/12/24 22:00 07/16/24 09:39 Acetaminophen 500 Mg Tablet PO 07/12/25 21:59 500 mg TID ANIBAL Administration Acetaminophen 650 mg 07/12/24 17:00 Acetaminophen 325 Mg Tablet PO 07/12/25 16:59 Q6HR PRN Pain Scale 1 - 3 or fever Albuterol/Ipratropium 3 ml 07/12/24 16:57 Ipratropium/Albuterol 0.5-3 Mg 3 Ml Ampul.Neb INHALATION 07/12/25 16:56 Q6HR PRN shortness of breath or wheezing Allopurinol 300 mg 07/13/24 09:00 07/16/24 09:39 Allopurinol 300 Mg Tablet PO 07/13/25 08:59 300 mg DAILY ANIBAL Administration Apixaban 5 mg 07/15/24 21:00 07/16/24 09:39 Apixaban 5 Mg Tablet PO 07/15/25 20:59 5 mg BID ANIBAL Administration Atorvastatin Calcium 40 mg 07/13/24 09:00 07/16/24 09:38 Atorvastatin 40 Mg Tablet PO 07/13/25 08:59 40 mg DAILY ANIBAL Administration Bumetanide 1 mg 07/15/24 08:00 07/16/24 09:39 Bumetanide 1 Mg Tablet PO 07/15/25 07:59 1 mg DAILY@0800 ANIBAL Administration Cefepime HCl 2 gm in 50 mls @ 12.5 mls/hr 07/13/24 20:00 07/16/24 09:39 Maxipime IV 12.5 mls/hr Q12H ANIBAL Administration Vancomycin HCl 1 gm in 250 mls @ 250 mls/hr 07/16/24 10:00 Vancomycin IV Q24H ANIBAL Levothyroxine Sodium 150 mcg 07/13/24 06:30 07/16/24 05:21 Levothyroxine 150 Mcg Tablet PO 07/13/25 06:29 150 mcg DAILY.0630 ANIBAL Administration Magnesium Oxide 400 mg 07/13/24 09:00 07/16/24 09:38 Magnesium Oxide 400 Mg Tablet PO 07/13/25 08:59 400 mg DAILY ANIBAL Administration Eszopiclone 3 Mg 3 mg 07/12/24 22:00 07/15/24 22:09 Tablet PO 07/12/25 21:59 3 mg QHS ANIBAL Administration Pom (Eszopiclone 3 3 mg 07/20/24 22:00 Mg Tablet) PO 07/20/25 21:59 QHS ANIBAL Oxycodone/Acetaminophen 1 tab 07/12/24 17:00 07/13/24 22:05 Oxycodone/Acetaminophen 5-325 Mg Tablet PO 1 tab Q4H PRN Administration Pain Scale 4 - 7 Polyethylene Glycol 17 gm 07/14/24 10:05 07/15/24 20:11 Polyethylene Glycol 3350 17 Gm Powd.Pack PO 07/14/25 10:04 Not Given BID ANIBAL Potassium Chloride 20 meq 07/13/24 09:00 07/16/24 09:39 Potassium Chloride Er 20 Meq Tab.Er.Prt PO 07/13/25 08:59 20 meq DAILY ANIBAL Administration Sennosides 8.8 mg 07/14/24 10:05 07/15/24 20:12 Sennosides Syrup 8.8 Mg/5 Ml Udc PO 07/14/25 10:04 Not Given BID ANIBAL Sodium Chloride 0 ml 07/12/24 14:41 07/15/24 20:06 Sodium Chloride 0.9 % 10 Ml Syringe IV-PUSH 07/12/25 14:40 10 ml PRN PRN Administration Flush Trazodone HCl 50 mg 07/12/24 16:57 07/14/24 21:14 Trazodone 50 Mg Tablet PO 07/12/25 16:56 50 mg QHS PRN Administration insomnia Vancomycin HCl 1 each 07/12/24 17:05 Vancomycin - Pharmacy Dosing 1 Each Miscell IV ONCE PRN ZZ.Pharmacy Consult Protocol A&P - Hospitalist Assessment/Plan (1) Hematuria: (2) Hypoxia: (3) CHF exacerbation: (4) Sepsis: (5) Hypothyroidism: (6) Hypertension: (7) BPH (benign prostatic hyperplasia): (8) Atrial fibrillation: Plan This is a 83-year-old male with significant past medical history of A-fib, hypothyroidism, hypertension, BPH on chronic Chou since March 2024 exchangingevery month, hyperlipidemia, gout, cardiomyopathy, history of CHF, was [facility] for chief concern for hematuria. Patient had appointment with urologist today who exchangehis Chou and patient mentions that he has been bleeding since thenwith minimal urine output. Daughter at bedside. Denies any pain any urgency frequency dysuria or lower abdominal pain. Denies any flank pain. Denies any fever or chills. Patient is on antibiotics for shortness of breath for couple of days. He mentions worsening shortness of breath with cough and some sputum production for 4 to 5 days. In the ED initially he was slightly hypotensive andresolved on its own. Patient got Lasix 40 units and magnesium replacement. Lactate was 2.3. Lab work shows WBC of 6.5, creatinine 1.62, lactate of 2.3, magnesium 1.7, normal liver enzymes, troponin 21, BNP is pending. Urinalysis shows innumerable RBCs and WBC of 10-19. And 1+ bacteria. COVID test negative. Chest x-ray shows minimal hilar congestion no consolidation suggesting pneumonia. Urine culture and blood culture pending. Patient was also started on broad-spectrum antibiotics. Urine culture grew gram-negative bacilli. Finalculture pending. And blood culture grew gram-negative bacilli and Enterococcus faecalis. Previous history of urine culture growing Pseudomonas and Proteus sensitive to cefepime. Daughter bedside also mentions swelling in the right leg suggestive of abscess. General surgery consulted. Patient had I&D and was found to have hematoma. Final culture pending. Plan: - Admitted to regular nursing floor with telemetry - Continue on broad-spectrum antibiotics for concern for pneumonia/UTI/abscess. ID managing antibiotics- has PiCC line ordered - Follow-up sputum culture blood culture and urine culture and MRSA PCR - Urology on consult appreciate recommendation- recommended to discharge on Chou and follow-up with urology. - Continue POA medications-allopurinol, Lipitor, Bumex, magnesium, trazodone, Eliquis - Continue on home diuretic dose and monitor daily weights. - Monitor input and output - Daily weights - Heart healthy diet - PT/OT-residential facility - Full code SCD for DVT prophylaxis Documented By: Mario Jordan MD 07/16/241454 Signed By: <Electronically signed by Mario Jordan MD> 07/16/241458 [facility] Work Phone: 1(865) 112-357305-12-2025 Progress note Author Frankie Reynolds [facility] HospitalNote Date/TimeMay 2024 9:28[place] [address] Infect. Disease Progress Note Signed Patient: Tavo Wallis Jr MR# : [id number] : 1940 Acct:[id number] Age/Sex: 84 / M Adm Date: 5 Loc: Room: [address] [place] [address] Type: ADM IN Attending Dr: Mario Jordan MD Copies to: ~ Date of Service: 07/16/2024 Subjective Interval history: Patient feels okay but family in room and both patient and family are frustratedthat patient is notphysically getting any stronger especially with his legs. Patient did have I&D of a right lowerleg fluid collection which seems to be hematoma. Culture was sent of this. Patient remains on cefepime and vancomycin Exam Physical Exam Vital Signs: Vital Signs Temp Pulse Resp BP Pulse Ox O2 Del Method 07/16/24 05:23 70 18 160/92 H 98 Room Air 07/15/24 20:00 Room Air 07/15/24 20:00 18 118/59 L 98 Room Air 07/15/24 16:41 98.1 F 69 14 107/57 L 99 Room Air 07/15/24 12:00 98.1 F 72 16 106/65 97 Room Air Intake and Output 07/15/24 07/16/24 07/16/24 23:59 07:59 15:59 Intake Total 700 / 800 450 / 450 Output Total 3250 / 5100 2300 / 2300 Balance -2550 / -4300 -1850 / -1850 Intake: Oral 700 / 700 450 / 450 Output: Urine Amount (Catheter) 3250 / 5100 2300 / 2300 3-way Urethral 3250 / 5100 2300 / 2300 Other: # Bowel Movements 3 Weight 89.4 kg Date of Last Bowel Movement 07/15/24 Patient Weight 07/16/24 23:59 Weight 89.4 kg Const General: comfortable and no acute distress Orientation: oriented x3 HEENT Head: normal to inspection Ears: hearing grossly normal bilaterally Face and sinus: normal facial exam Mouth: oral mucosae normal Eyes General: appearance normal, both eyes and all related structures Neck Neck: normal visual inspection Chest Chest palpation & inspection: normal inspection of the chest Resp Effort & Inspection: normal respiratory effort Cardio Rate: regular rate Rhythm: regular rhythm GI Inspection: normal to inspection Palpation: soft and nontender Skin Other: Right lower leg with dressing intact. Extrem General: edema Objective Labs CBC/BMP: CBC, BMP 07/16/24 05:43 Corrected WBC 7.9 Uncorrected WBC Count 7.9 RBC 2.88 L Hgb 8.6 L Hct 26.3 L Plt Count 151 Sodium 137 Potassium 3.6 Chloride 104 Carbon Dioxide 26.5 Anion Gap 10.1 BUN 26 H Creatinine 1.15 Calcium 8.2 L Labs: 07/16/24 05:43 BUN 26 H Creatinine 1.15 Microbiology Microbiology: Microbiology - Results from entire visit 07/12/24 15:07 Blood - Left Forearm Blood Culture - Final Enterococcus faecalis Pseudomonas aeruginosa 07/12/24 15:07 Blood - Left Forearm Bacterial ID (NA Multiplex Assay) - Final 07/12/24 16:19 Clean Void Midstream Urine Culture - Final Pseudomonas aeruginosa Enterococcus faecalis 07/12/24 15:00 Blood - Left Arm Blood Culture - Final Pseudomonas aeruginosa 07/12/24 15:00 Blood - Left Arm Bacterial ID (NA Multiplex Assay) - Final 07/13/24 18:56 Nasal Nasal Screen MRSA/MSSA - Final 07/13/24 17:50 Stool Stool Occult Blood (BELLA) - Final 07/12/24 15:03 Nasopharyngeal SARS-CoV-2, Influenza & RSV (PCR) - Final Allergies and Medications Allergies and Active Meds Allergies fentanyl Allergy (Unknown, Verified 07/12/24 15:55) Dizziness, loopy indomethacin (From Indocin) Allergy (Unknown, Verified 07/12/24 15:55) Dizziness zolpidem (From Ambien) Allergy (Unknown, Verified 07/12/24 15:55) Confusion, memory loss Penicillins Allergy (Verified 07/12/24 15:55) Weakness Active Medications Acetaminophen (Acetaminophen 500 Mg Tablet) 500 mg PO TID [facility] Stop: 07/12/25 21:59 Last Admin: 07/15/24 22:09 Dose: 500 mg Acetaminophen (Acetaminophen 325 Mg Tablet) 650 mg PO Q6HR PRN PRN Reason: Pain Scale 1 - 3 or fever Stop: 07/12/25 16:59 Albuterol/Ipratropium (Ipratropium/Albuterol 0.5-3 Mg 3 Ml Ampul.Neb) 3 ml INHALATION Q6HR PRN PRN Reason: shortness of breath or wheezing Stop: 07/12/25 16:56 Allopurinol (Allopurinol 300 Mg Tablet) 300 mg PO DAILY [facility] Stop: 07/13/25 08:59 Last Admin: 07/15/24 08:33 Dose: 300 mg Apixaban (Apixaban 5 Mg Tablet) 5 mg PO BID [facility] Stop: 07/15/25 20:59 Last Admin: 07/15/24 22:09 Dose: 5 mg Atorvastatin Calcium (Atorvastatin 40 Mg Tablet) 40 mg PO DAILY [facility] Stop: 07/13/25 08:59 Last Admin: 07/15/24 08:33 Dose: 40 mg Bumetanide (Bumetanide 1 Mg Tablet) 1 mg PO DAILY@0800 [facility] Stop: 07/15/25 07:59 Last Admin: 07/15/24 08:33 Dose: 1 mg Cefepime HCl (Maxipime) 2 gm in 50 mls @ 12.5 mls/hr IV Q12H [facility] Last Admin: 07/15/24 20:05 Dose: 12.5 mls/hr Vancomycin HCl (Vancomycin) 1 gm in 250 mls @ 250 mls/hr IV Q24H [facility] Levothyroxine Sodium (Levothyroxine 150 Mcg Tablet) 150 mcg PO DAILY.0630 [facility] Stop: 07/13/25 06:29 Last Admin: 07/16/24 05:21 Dose: 150 mcg Magnesium Oxide (Magnesium Oxide 400 Mg Tablet) 400 mg PO DAILY [facility] Stop: 07/13/25 08:59 Last Admin: 07/15/24 08:33 Dose: 400 mg Eszopiclone 3 Mg (Tablet) 3 mg PO QHS [facility] Stop: 07/12/25 21:59 Last Admin: 07/15/24 22:09 Dose: 3 mg Pom (Eszopiclone 3 (Mg Tablet)) 3 mg PO QHS [facility] Stop: 07/20/25 21:59 Oxycodone/Acetaminophen (Oxycodone/Acetaminophen 5-325 Mg Tablet) 1 tab PO Q4H PRN PRN Reason: Pain Scale 4 - 7 Last Admin: 07/13/24 22:05 Dose: 1 tab Polyethylene Glycol (Polyethylene Glycol 3350 17 Gm Powd.Pack) 17 gm PO BID [facility] Stop: 07/14/25 10:04 Last Admin: 07/15/24 20:11 Dose: Not Given Potassium Chloride (Potassium Chloride Er 20 Meq Tab.Er.Prt) 20 meq PO DAILY [facility] Stop: 07/13/25 08:59 Last Admin: 07/15/24 08:33 Dose: 20 meq Sennosides (Sennosides Syrup 8.8 Mg/5 Ml Udc) 8.8 mg PO BID [facility] Stop: 07/14/25 10:04 Last Admin: 07/15/24 20:12 Dose: Not Given Sodium Chloride (Sodium Chloride 0.9 % 10 Ml Syringe) 0 ml IV-PUSH PRN PRN PRN Reason: Flush Stop: 07/12/25 14:40 Last Admin: 07/15/24 20:06 Dose: 10 ml Trazodone HCl (Trazodone 50 Mg Tablet) 50 mg PO QHS PRN PRN Reason: insomnia Stop: 07/12/25 16:56 Last Admin: 07/14/24 21:14 Dose: 50 mg Vancomycin HCl (Vancomycin - Pharmacy Dosing 1 Each Miscell) 1 each IV ONCE PRN; Protocol PRN Reason: ZZ.Pharmacy Consult A&P - Infectious Disease Assessment/Plan (1) Sepsis: Qualifiers: Sepsis acute organ dysfunction status: without acute organ dysfunction (2) Complicated UTI (urinary tract infection): (3) Bacteremia due to Pseudomonas: (4) Bacteremia due to Enterococcus: (5) Abscess of left leg: Plan I&D of right lower leg found coagulated blood consistent with hematoma. Culturesent. Patient remains on vancomycin cefepime. Will place PICC line given complicated UTI with bacteremia. Will follow-up on lower leg culture. Patient and family's main complaint is that he continues to be weak. Apparently had back surgery at an outside hospital but then got infected. Patient not complaining of anyback pain. Apparently he is just weak and is upper thighs. intermediate that he has been to on and off therapy only happens once a day and it sounds like he sits in a chair or bed for the rest of thetime. This is according to his family member. Documented By: Frankie Reynolds MD 07/16/24918 Signed By: <Electronically signed by MD Frankie Reynolds> 07/16/24927 [facility] Work Phone: [phone]) 715-994205-11-2025 Progress note Author Mario Jordan [facility] HospitalNote Date/TimeMay 2024 1:[place] [address] Hospitalist Progress Note Signed Patient: Tavo Wallis Jr MR# : [id number] : 1940 Acct:[id number] Age/Sex: 84 / M Adm Date: 5 Loc: Room: [address] [place] [address] Type: ADM IN Attending Dr: Mario Jordan MD Copies to: ~ Date of Service: 2024 Subjective Subjective Narrative: Patient is comfortably lying in the bed and is on room air. No hematuria seen in urinary bag. Patient had I&D of the swelling and was found to have hematoma. WBC is 11.2 and trending downwards, hemoglobin 8 and stable, potassium 3.5. Creatinine 1.44 and trending downwards. Exam Physical Exam Vital Signs: Temp Pulse Resp BP Pulse Ox O2 Del Method O2 Flow Rate 98.0 F 60 18 136/72 97 Room Air 2 07/15/24 08:00 07/15/24 08:00 07/15/24 08:00 07/15/24 08:00 07/15/24 08:00 07/15/24 08:00 07/13/24 04:00 Narrative: General: Awake alert, no acute distress HEENT: head atraumatic, normocephalic, moist mucous membranes Neck: supple no masses, no lymphadenopathy CVS: regular rate and rhythm, no murmurs or gallops Respiratory: diminished breath sound with crackles, no wheezing GI: soft, nondistended, nontender, positive bowel sounds with no organomegaly Extremity: moves all extremities, no restrictions of movements, no calf tenderness bilateral 3-4+ pedal edema, with small 3 to 4 cm swelling in the lateral aspect of the mid right leg with erythema and tenderness and fluctuance but not pulsatile Neuro: AOx3, CN II-VII intact. Moves all extremities in all planes of motion. Skin: intact no rashes or lesions Objective Lab Results 07/15/24 04:31 07/15/24 04:31 Microbiology Results Microbiology 07/12/24 16:19 Clean Void Midstream Urine Culture - Final Pseudomonas aeruginosa Enterococcus faecalis 07/12/24 15:07 Blood - Left Forearm Blood Culture - Preliminary Enterococcus faecalis Pseudomonas aeruginosa 07/12/24 15:07 Blood - Left Forearm Bacterial ID (NA Multiplex Assay) - Final 07/12/24 15:00 Blood - Left Arm Blood Culture - Final Pseudomonas aeruginosa 07/12/24 15:00 Blood - Left Arm Bacterial ID (NA Multiplex Assay) - Final Meds Allergies and Active Meds Allergies fentanyl Allergy (Unknown, Verified 07/12/24 15:55) Dizziness, loopy indomethacin (From Indocin) Allergy (Unknown, Verified 07/12/24 15:55) Dizziness zolpidem (From Ambien) Allergy (Unknown, Verified 07/12/24 15:55) Confusion, memory loss Penicillins Allergy (Verified 07/12/24 15:55) Weakness Active Meds: Active Medications Generic Name Dose Route Start Last Admin Trade Name Lexq PRN Reason Stop Dose Admin Acetaminophen 500 mg 07/12/24 22:00 07/15/24 08:33 Acetaminophen 500 Mg Tablet PO 07/12/25 21:59 500 mg TID ANIBAL Administration Acetaminophen 650 mg 07/12/24 17:00 Acetaminophen 325 Mg Tablet PO 07/12/25 16:59 Q6HR PRN Pain Scale 1 - 3 or fever Albuterol/Ipratropium 3 ml 07/12/24 16:57 Ipratropium/Albuterol 0.5-3 Mg 3 Ml Ampul.Neb INHALATION 07/12/25 16:56 Q6HR PRN shortness of breath or wheezing Allopurinol 300 mg 07/13/24 09:00 07/15/24 08:33 Allopurinol 300 Mg Tablet PO 07/13/25 08:59 300 mg DAILY ANIBAL Administration Atorvastatin Calcium 40 mg 07/13/24 09:00 07/15/24 08:33 Atorvastatin 40 Mg Tablet PO 07/13/25 08:59 40 mg DAILY [facility] Administration Bumetanide 1 mg 07/15/24 08:00 07/15/24 08:33 Bumetanide 1 Mg Tablet PO 07/15/25 07:59 1 mg DAILY@0800 [facility] Administration Vancomycin HCl 1.25 gm/ 275 mls @ 183.333 mls/hr 07/13/24 18:00 07/15/24 09:47 Dextrose IV 07/13/25 17:59 183.33 mls/hr Q12H [facility] Administration Cefepime HCl 2 gm in 50 mls @ 12.5 mls/hr 07/13/24 20:00 07/15/24 08:34 Maxipime IV 12.5 mls/hr Q12H [facility] Administration Levothyroxine Sodium 150 mcg 07/13/24 06:30 07/15/24 08:33 Levothyroxine 150 Mcg Tablet PO 07/13/25 06:29 150 mcg DAILY.0630 [facility] Administration Magnesium Oxide 400 mg 07/13/24 09:00 07/15/24 08:33 Magnesium Oxide 400 Mg Tablet PO 07/13/25 08:59 400 mg DAILY [facility] Administration Eszopiclone 3 Mg 3 mg 07/12/24 22:00 07/14/24 23:17 Tablet PO 07/12/25 21:59 Not Given QHS AN[facility]AL Pom (Eszopiclone 3 3 mg 07/20/24 22:00 Mg Tablet) PO 07/20/25 21:59 QHS [facility] Oxycodone/Acetaminophen 1 tab 07/12/24 17:00 07/13/24 22:05 Oxycodone/Acetaminophen 5-325 Mg Tablet PO 1 tab Q4H PRN Administration Pain Scale 4 - 7 Polyethylene Glycol 17 gm 07/14/24 10:05 07/15/24 08:17 Polyethylene Glycol 3350 17 Gm Powd.Pack PO 07/14/25 10:04 Not Given BID AN[facility] Potassium Chloride 20 meq 07/13/24 09:00 07/15/24 08:33 Potassium Chloride Er 20 Meq Tab.Er.Prt PO 07/13/25 08:59 20 meq DAILY ANIBAL Administration Sennosides 8.8 mg 07/14/24 10:05 07/15/24 08:17 Sennosides Syrup 8.8 Mg/5 Ml Udc PO 07/14/25 10:04 Not Given BID [facility] Sodium Chloride 0 ml 07/12/24 14:41 07/15/24 09:47 Sodium Chloride 0.9 % 10 Ml Syringe IV-PUSH 07/12/25 14:40 10 ml PRN PRN Administration Flush Trazodone HCl 50 mg 07/12/24 16:57 07/14/24 21:14 Trazodone 50 Mg Tablet PO 07/12/25 16:56 50 mg QHS PRN Administration insomnia Vancomycin HCl 1 each 07/12/24 17:05 Vancomycin - Pharmacy Dosing 1 Each Miscell IV ONCE PRN ZZ.Pharmacy Consult Protocol A&P - Hospitalist Assessment/Plan (1) Hematuria: (2) Hypoxia: (3) CHF exacerbation: (4) Sepsis: (5) Hypothyroidism: (6) Hypertension: (7) BPH (benign prostatic hyperplasia): (8) Atrial fibrillation: Plan This is a 83-year-old male with significant past medical history of A-fib, hypothyroidism, hypertension, BPH on chronic Chou since March 2024 exchangingevery month, hyperlipidemia, gout, cardiomyopathy, history of CHF, was [facility] for chief concern for hematuria. Patient had appointment with urologist today who exchangehis Chou and patient mentions that he has been bleeding since thenwith minimal urine output. Daughter at bedside. Denies any pain any urgency frequency dysuria or lower abdominal pain. Denies any flank pain. Denies any fever or chills. Patient is on antibiotics for shortness of breath for couple of days. He mentions worsening shortness of breath with cough and some sputum production for 4 to 5 days. In the ED initially he was slightly hypotensive andresolved on its own. Patient got Lasix 40 units and magnesium replacement. Lactate was 2.3. Lab work shows WBC of 6.5, creatinine 1.62, lactate of 2.3, magnesium 1.7, normal liver enzymes, troponin 21, BNP is pending. Urinalysis shows innumerable RBCs and WBC of 10-19. And 1+ bacteria. COVID test negative. Chest x-ray shows minimal hilar congestion no consolidation suggesting pneumonia. Urine culture and blood culture pending. Patient was also started on broad-spectrum antibiotics. Urine culture grew gram-negative bacilli. Finalculture pending. And blood culture grew gram-negative bacilli and Enterococcus faecalis. Previous history of urine culture growing Pseudomonas and Proteus sensitive to cefepime. Daughter bedside also mentions swelling in the right leg suggestive of abscess. General surgery consulted. Patient had I&D and was found to have hematoma. Plan: - Admitted to regular nursing floor with telemetry - Continue on broad-spectrum antibiotics for concern for pneumonia/UTI/abscess. ID managing antibiotics - Follow-up sputum culture blood culture and urine culture and MRSA PCR - Urology on consult appreciate recommendation - Will restart his Eliquis - Continue POA medications-allopurinol, Lipitor, Bumex, magnesium, trazodone - Continue on home diuretic dose and monitor daily weights. - Monitor input and output - Daily weights - Heart healthy diet - PT/OT-residential facility - Full code SCD for DVT prophylaxis Documented By: Mario Jordan MD 07/15/241334 Signed By: <Electronically signed by Mario Jordan MD> 07/15/241338 [facility] Work Phone: 1(472) 135-567805-11-2025 Consult note Author Frankie Reynolds [facility] HospitalNote Date/TimeMay 2024 9:59[place] [id number] Infect. Disease Consult Note Signed Patient: Tavo Wallis Jr MR# : [id number] : 1940 Acct:[id number] Age/Sex: 84 / M Adm Date: 5 Loc: Room: [address] [place] [address] Type: ADM IN Attending Dr: Mario Jordan MD Copies to: MD Sandip Fajardo MD~ HPI Data of Consult Consult date: 07/15/24 Requesting Physician: Mario Jordan MD Primary Care Provider: Sandip Aguirre DO Consult Narrative History of present illness: Mr. Wallis is a 84 year old male who was admitted back on July 12. He has a pastmedical history of A-fib hypothyroidism hypertension BPH and chronic Chou sinceJanuary. This gets exchanged every month. He was noted to have hematuria and in the emergency room he was hypotensive. Lactate was slightly elevated more count was normal. Chest x-ray showed congestion consolidation suggesting pneumonia. Initial blood cultures July 12 both are growing Pseudomonas with 1 setis also growing Enterococcus and his urine culture was sent and is now positive for Enterococcus and Pseudomonas. Abdominal CT done onadmission shows mild left-sided hydronephrosis with hydroureter. Source of blood culture positivitylikely from complicated urinary tract infection. The patient has been on vancomycin and cefepime since admission. He was also noted on the right lower leg there was a area that was visibly swollen without erythema or warmth. CT scan confirmed a fluid collection. Patient denies any known trauma to this leg. Hospitalist as well as general surgery consult yesterday mentions erythema and tenderness around the swelling but today erythema is not that impressive. I received a consult to help manage the antibiotics. Again he remains on vancomycin and cefepime. 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 Social History Comments: [facility] rehab Allergies and Medications Allergies and Active Meds Allergies fentanyl Allergy (Unknown, Verified 07/12/24 15:55) Dizziness, loopy indomethacin (From Indocin) Allergy (Unknown, Verified 07/12/24 15:55) Dizziness zolpidem (From Ambien) Allergy (Unknown, Verified 07/12/24 15:55) Confusion, memory loss Penicillins Allergy (Verified 07/12/24 15:55) Weakness Active Medications Acetaminophen (Acetaminophen 500 Mg Tablet) 500 mg PO TID [facility] Stop: 07/12/25 21:59 Last Admin: 07/15/24 08:33 Dose: 500 mg Acetaminophen (Acetaminophen 325 Mg Tablet) 650 mg PO Q6HR PRN PRN Reason: Pain Scale 1 - 3 or fever Stop: 07/12/25 16:59 Albuterol/Ipratropium (Ipratropium/Albuterol 0.5-3 Mg 3 Ml Ampul.Neb) 3 ml INHALATION Q6HR PRN PRN Reason: shortness of breath or wheezing Stop: 07/12/25 16:56 Allopurinol (Allopurinol 300 Mg Tablet) 300 mg PO DAILY [facility] Stop: 07/13/25 08:59 Last Admin: 07/15/24 08:33 Dose: 300 mg Atorvastatin Calcium (Atorvastatin 40 Mg Tablet) 40 mg PO DAILY [facility] Stop: 07/13/25 08:59 Last Admin: 07/15/24 08:33 Dose: 40 mg Bumetanide (Bumetanide 1 Mg Tablet) 1 mg PO DAILY@0800 [facility] Stop: 07/15/25 07:59 Last Admin: 07/15/24 08:33 Dose: 1 mg Vancomycin HCl 1.25 gm/ (Dextrose) 275 mls @ 183.333 mls/hr IV Q12H [facility] Stop: 07/13/25 17:59 Last Admin: 07/15/24 09:47 Dose: 183.33 mls/hr Cefepime HCl (Maxipime) 2 gm in 50 mls @ 12.5 mls/hr IV Q12H [facility] Last Admin: 07/15/24 08:34 Dose: 12.5 mls/hr Levothyroxine Sodium (Levothyroxine 150 Mcg Tablet) 150 mcg PO DAILY.0630 [facility] Stop: 07/13/25 06:29 Last Admin: 07/15/24 08:33 Dose: 150 mcg Magnesium Oxide (Magnesium Oxide 400 Mg Tablet) 400 mg PO DAILY [facility] Stop: 07/13/25 08:59 Last Admin: 07/15/24 08:33 Dose: 400 mg Eszopiclone 3 Mg (Tablet) 3 mg PO QHS [facility] Stop: 07/12/25 21:59 Last Admin: 07/14/24 23:17 Dose: Not Given Pom (Eszopiclone 3 (Mg Tablet)) 3 mg PO QHS [facility] Stop: 07/20/25 21:59 Oxycodone/Acetaminophen (Oxycodone/Acetaminophen 5-325 Mg Tablet) 1 tab PO Q4H PRN PRN Reason: Pain Scale 4 - 7 Last Admin: 07/13/24 22:05 Dose: 1 tab Polyethylene Glycol (Polyethylene Glycol 3350 17 Gm Powd.Pack) 17 gm PO BID [facility] Stop: 07/14/25 10:04 Last Admin: 07/15/24 08:17 Dose: Not Given Potassium Chloride (Potassium Chloride Er 20 Meq Tab.Er.Prt) 20 meq PO DAILY [facility] Stop: 07/13/25 08:59 Last Admin: 07/15/24 08:33 Dose: 20 meq Sennosides (Sennosides Syrup 8.8 Mg/5 Ml Udc) 8.8 mg PO BID [facility] Stop: 07/14/25 10:04 Last Admin: 07/15/24 08:17 Dose: Not Given Sodium Chloride (Sodium Chloride 0.9 % 10 Ml Syringe) 0 ml IV-PUSH PRN PRN PRN Reason: Flush Stop: 07/12/25 14:40 Last Admin: 07/15/24 09:47 Dose: 10 ml Trazodone HCl (Trazodone 50 Mg Tablet) 50 mg PO QHS PRN PRN Reason: insomnia Stop: 07/12/25 16:56 Last Admin: 07/14/24 21:14 Dose: 50 mg Vancomycin HCl (Vancomycin - Pharmacy Dosing 1 Each Miscell) 1 each IV ONCE PRN; Protocol PRN Reason: ZZ.Pharmacy Consult Exam Physical Exam Vital Signs: Vital Signs Temp Pulse Resp BP Pulse Ox O2 Del Method 07/15/24 08:00 98.0 F 60 18 136/72 97 Room Air 07/15/24 04:00 68 16 126/68 98 Room Air 07/15/24 00:00 85 16 123/60 99 Room Air 07/14/24 20:00 Room Air 07/14/24 20:00 98.3 F 84 20 114/52 L 98 Room Air 07/14/24 16:00 98.3 F 73 20 105/59 L 97 Room Air 07/14/24 12:00 98.7 F 80 16 110/58 L 96 Room Air Intake and Output 07/14/24 07/15/24 07/15/24 23:59 07:59 15:59 Intake Total 1135 / 1710 50 / 50 Output Total 1299 / 1849 Balance -165 / -440 -1800 / -1800 Intake: IV 275 / 600 50 / 50 Cefepime 2Gm-*Ns* 2 gm In 50 ml 50 / 50 @ 12.5 mls/hr IV Q12H [facility] Rx#: [id number] Vancomycin 1.25 gm In Dextrose 275 / 550 5 % in Water 250 ml @ 183.333 mls/hr IV Q12H [facility] Rx#:[id number] Oral 860 / 1110 0 / 0 Output: Urine Amount (Catheter) 1299 / 1849 3-way Urethral 1299 / 2149 Other: # Bowel Movements 2 0 Weight 90.8 kg Date of Last Bowel Movement 07/14/24 Patient Weight 07/15/24 23:59 Weight 90.8 kg Const General: comfortable and no acute distress Orientation: oriented x3 HEENT Head: normal to inspection Ears: hearing grossly normal bilaterally Face and sinus: normal facial exam Mouth: oral mucosae normal Eyes General: appearance normal, both eyes and all related structures Neck Neck: normal visual inspection Chest Chest palpation & inspection: normal inspection of the chest Resp Effort & Inspection: normal respiratory effort Cardio Rate: regular rate Rhythm: regular rhythm GI Inspection: normal to inspection Palpation: soft and nontender Skin Other: 3 cm raised swollen area lateral aspect of the right mid leg. Some mild bruise/ecchymosis noted butno erythema present today. Extrem General: edema Results - Infectious Disease Labs 07/15/24 04:31 07/15/24 04:31 Labs: 07/15/24 04:31: Corrected WBC 11.2 H, Uncorrected WBC Count 11.2 H, BUN 32 H, Creatinine 1.44 H Microbiology Results Microbiology Narrative: 07/12/24 15:07 Blood Culture - Preliminary Blood - Left Forearm Enterococcus faecalis Pseudomonas aeruginosa Bacterial ID (NA Multiplex Assay) - Final 07/12/24 15:00 Blood Culture - Final Blood - Left Arm Pseudomonas aeruginosa Bacterial ID (NA Multiplex Assay) - Final 07/12/24 16:19 Urine Culture - Preliminary Clean Void Midstream Pseudomonas aeruginosa Enterococcus faecalis 07/13/24 18:56 Nasal Screen MRSA/MSSA - Final Nasal 07/13/24 17:50 Stool Occult Blood (BELLA) - Final Stool 07/12/24 15:03 SARS-CoV-2, Influenza & RSV (PCR) - Final Nasopharyngeal Imaging and Cardiology Status: report viewed by me Results Comments: CT IMPRESSION: There is diffuse soft tissue swelling consistent with cellulitis. There is a fluid collection consistent with a history of abscess in the anterior/lateral soft tissues of the mid and lower leg measuring 3.9 x 1.7 x 4.4 cm in greatest dimension. No CT evidence of osteomyelitis. A&P - Infectious Disease (1) Sepsis: Qualifiers: Sepsis acute organ dysfunction status: without acute organ dysfunction (2) Complicated UTI (urinary tract infection): (3) Bacteremia due to Pseudomonas: (4) Bacteremia due to Enterococcus: (5) Abscess of left leg: Plan Patient currently on vancomycin and cefepime based on initial cultures from early on in hospital stay. Follow blood cultures remain negative. Source of blood culture likely from his urinary tract infection especially given the hydroureter seen on CT scan. Urine culture did not match blood cultures.Patient now with right lower extremity leg swelling which documentation yesterday did suggest therewas erythema but today erythema is minimal. The area is about [address] scan is confirmed fluid collection. Kamlesh Villeda is planning a bedside I&D. Patient denies any known trauma. Willawait Dr. Villeda I&D and likely superficial culture to be sent. For now maintain vancomycin and cefepime Documented By: Frankie Reynolds MD 07/15/24 0949 Signed By: <Electronically signed by MD Frankie Reynolds> 07/15/24 0959 [facility] Work Phone: 1(832) 449-295605-10-2025 Progress note Author Mario Jordan [facility] HospitalNote Date/TimeMay 2024 12:[place] [address] Hospitalist Progress Note Signed Patient: Tavo Wallis Jr MR# : [id number] : 1940 Acct:[id number] Age/Sex: 83 / M Adm Date: 5 Loc: Room: [address] [place] [address] Type: ADM IN Attending Dr: Mario Jordan MD Copies to: ~ Date of Service: 07/14/2024 Subjective Subjective Narrative: Patient is comfortably lying in the bed and is on room air. CBI was stopped andpatient was started on Chou catheter. Has pinkish discoloration of the urine. Daughter bedside also mentions swelling in the right leg suggestive of abscess. General surgery consulted. Lab work shows leukocytosis trending down- 15.7 today, potassium 3.3 and replaced, creatinine 1.63 and trending down Exam Physical Exam Vital Signs: Temp Pulse Resp BP Pulse Ox O2 Del Method O2 Flow Rate 98.7 F 80 16 110/58 L 96 Room Air 2 07/14/24 12:00 07/14/24 12:00 07/14/24 12:00 07/14/24 12:00 07/14/24 12:00 07/14/24 12:00 07/13/24 04:00 Narrative: General: Awake alert, no acute distress HEENT: head atraumatic, normocephalic, moist mucous membranes Neck: supple no masses, no lymphadenopathy CVS: regular rate and rhythm, no murmurs or gallops Respiratory: diminished breath sound with crackles, no wheezing GI: soft, nondistended, nontender, positive bowel sounds with no organomegaly Extremity: moves all extremities, no restrictions of movements, no calf tenderness bilateral 3-4+ pedal edema, with small 3 to 4 cm swelling in the lateral aspect of the mid right leg with erythema and tenderness and fluctuance but not pulsatile Neuro: AOx3, CN II-VII intact. Moves all extremities in all planes of motion. Skin: intact no rashes or lesions Objective Lab Results 07/14/24 05:17 07/14/24 05:17 Microbiology Results Microbiology 07/12/24 16:19 Clean Void Midstream Urine Culture - Final Pseudomonas aeruginosa 07/12/24 15:07 Blood - Left Forearm Blood Culture - Preliminary Enterococcus faecalis Pseudomonas aeruginosa 07/12/24 15:07 Blood - Left Forearm Bacterial ID (NA Multiplex Assay) - Final 07/12/24 15:00 Blood - Left Arm Blood Culture - Preliminary Pseudomonas aeruginosa 07/12/24 15:00 Blood - Left Arm Bacterial ID (NA Multiplex Assay) - Final 07/13/24 18:56 Nasal Nasal Screen MRSA/MSSA - Final 07/13/24 17:50 Stool Stool Occult Blood (BELLA) - Final Meds Allergies and Active Meds Allergies fentanyl Allergy (Unknown, Verified 07/12/24 15:55) Dizziness, loopy indomethacin (From Indocin) Allergy (Unknown, Verified 07/12/24 15:55) Dizziness zolpidem (From Ambien) Allergy (Unknown, Verified 07/12/24 15:55) Confusion, memory loss Penicillins Allergy (Verified 07/12/24 15:55) Weakness Active Meds: Active Medications Generic Name Dose Route Start Last Admin Trade Name Freq PRN Reason Stop Dose Admin Acetaminophen 500 mg 07/12/24 22:00 07/14/24 09:05 Acetaminophen 500 Mg Tablet PO 07/12/25 21:59 500 mg TID ANIBAL Administration Acetaminophen 650 mg 07/12/24 17:00 Acetaminophen 325 Mg Tablet PO 07/12/25 16:59 Q6HR PRN Pain Scale 1 - 3 or fever Albuterol/Ipratropium 3 ml 07/12/24 16:57 Ipratropium/Albuterol 0.5-3 Mg 3 Ml Ampul.Neb INHALATION 07/12/25 16:56 Q6HR PRN shortness of breath or wheezing Allopurinol 300 mg 07/13/24 09:00 07/14/24 09:05 Allopurinol 300 Mg Tablet PO 07/13/25 08:59 300 mg DAILY ANIBAL Administration Atorvastatin Calcium 40 mg 07/13/24 09:00 07/14/24 09:05 Atorvastatin 40 Mg Tablet PO 07/13/25 08:59 40 mg DAILY ANIBAL Administration Furosemide 40 mg 07/13/24 08:00 07/14/24 09:05 Furosemide 40 Mg/4 Ml Vial IV-PUSH 07/13/25 07:59 40 mg BID@0800,1600 ANIBAL Administration Vancomycin HCl 1.25 gm/ 275 mls @ 183.333 mls/hr 07/13/24 18:00 07/14/24 09:05 Dextrose IV 07/13/25 17:59 183.33 mls/hr Q12H ANIBAL Administration Cefepime HCl 2 gm in 50 mls @ 12.5 mls/hr 07/13/24 20:00 07/14/24 09:05 Maxipime IV 12.5 mls/hr Q12H ANIBAL Administration Levothyroxine Sodium 150 mcg 07/13/24 06:30 07/14/24 06:43 Levothyroxine 150 Mcg Tablet PO 07/13/25 06:29 150 mcg DAILY.0630 ANIBAL Administration Magnesium Oxide 400 mg 07/13/24 09:00 07/14/24 09:05 Magnesium Oxide 400 Mg Tablet PO 07/13/25 08:59 400 mg DAILY ANIBAL Administration Eszopiclone 3 Mg 3 mg 07/12/24 22:00 07/13/24 21:44 Tablet PO 07/12/25 21:59 Not Given QHS ANIBAL Pom (Eszopiclone 3 3 mg 07/20/24 22:00 Mg Tablet) PO 07/20/25 21:59 QHS ANIBAL Oxycodone/Acetaminophen 1 tab 07/12/24 17:00 07/13/24 22:05 Oxycodone/Acetaminophen 5-325 Mg Tablet PO 1 tab Q4H PRN Administration Pain Scale 4 - 7 Polyethylene Glycol 17 gm 07/14/24 10:05 07/14/24 12:28 Polyethylene Glycol 3350 17 Gm Powd.Pack PO 07/14/25 10:04 17 gm BID ANIBAL Administration Potassium Chloride 20 meq 07/13/24 09:00 07/14/24 09:05 Potassium Chloride Er 20 Meq Tab.Er.Prt PO 07/13/25 08:59 20 meq DAILY ANIBAL Administration Sennosides 8.8 mg 07/14/24 10:05 07/14/24 12:28 Sennosides Syrup 8.8 Mg/5 Ml Udc PO 07/14/25 10:04 8.8 mg BID ANIBAL Administration Sodium Chloride 0 ml 07/12/24 14:41 07/12/24 16:12 Sodium Chloride 0.9 % 10 Ml Syringe IV-PUSH 07/12/25 14:40 10 ml PRN PRN Administration Flush Trazodone HCl 50 mg 07/12/24 16:57 07/13/24 21:44 Trazodone 50 Mg Tablet PO 07/12/25 16:56 50 mg QHS PRN Administration insomnia Vancomycin HCl 1 each 07/12/24 17:05 Vancomycin - Pharmacy Dosing 1 Each Miscell IV ONCE PRN ZZ.Pharmacy Consult Protocol A&P - Hospitalist Assessment/Plan (1) Hematuria: (2) Hypoxia: (3) CHF exacerbation: (4) Sepsis: (5) Hypothyroidism: (6) Hypertension: (7) BPH (benign prostatic hyperplasia): (8) Atrial fibrillation: Plan This is a 83-year-old male with significant past medical history of A-fib, hypothyroidism, hypertension, BPH on chronic Chou since March 2024 exchangingevery month, hyperlipidemia, gout, cardiomyopathy, history of CHF, was sent [facility] ED from [facility] for chief concern for hematuria. Patient had appointment with urologist today who exchangehis Chou and patient mentions that he has been bleeding since thenwith minimal urine output. Daughter at bedside. Denies any pain any urgency frequency dysuria or lower abdominal pain. Denies any flank pain. Denies any fever or chills. Patient is on antibiotics for shortness of breath for couple of days. He mentions worsening shortness of breath with cough and some sputum production for 4 to 5 days. In the ED initially he was slightly hypotensive andresolved on its own. Patient got Lasix 40 units and magnesium replacement. Lactate was 2.3. Lab work shows WBC of 6.5, creatinine 1.62, lactate of 2.3, magnesium 1.7, normal liver enzymes, troponin 21, BNP is pending. Urinalysis shows innumerable RBCs and WBC of 10-19. And 1+ bacteria. COVID test negative. Chest x-ray shows minimal hilar congestion no consolidation suggesting pneumonia. Urine culture and blood culture pending. Patient was also started on broad-spectrum antibiotics. Urine culture grew gram-negative bacilli. Finalculture pending. And blood culture grew gram-negative bacilli and Enterococcus faecalis. Previous history of urine culture growing Pseudomonas and Proteus sensitive to cefepime. Daughter bedside also mentions swelling in the right leg suggestive of abscess. General surgery consulted. Plan: - Admitted to regular nursing floor with telemetry - Continue on broad-spectrum antibiotics for concern for pneumonia/UTI/abscess - Follow-up sputum culture blood culture and urine culture and MRSA PCR - Urology on consult appreciate recommendation - Eliquis on hold in setting of hematuria - Continue POA medications-allopurinol, Lipitor, Bumex, magnesium, trazodone - Will switch to home diuretic dose and monitor daily weights. - Monitor input and output - Daily weights - Heart healthy diet - PT/OT-residential facility - General Surgery consulted for abscess in the right mid leg lateral aspect - Full code SCD for DVT prophylaxis Documented By: aMrio Jordan MD 07/14/24 1236 Signed By: <Electronically signed by Mario Jordan MD> 07/14/24 1246 [facility] Work Phone: [phone] Consult note Author Bryce Villeda [facility] HospitalNote Date/TimeMay 2024 12:[place] [address] General Surgery Consult Note Signed Patient: Tavo Wallis Jr MR# : [id number] : 1940 Acct:[id number] Age/Sex: 83 / M Adm Date: 5 Loc: Room: [address] [place] [address] Type: ADM IN Attending Dr: Mario Jordan MD Copies to: MD Sandip Fajardo DO~ History of Present Illness Date of consult: 07/14/2024 Requesting/Attending Provider: Mario Jordan MD History of present illness: Tavo is an 83-year-old male with multiple medical conditions including atrialfibrillation, hypothyroid, hypertension, CHF, who presented to the ER from [facility] for hematuria. The patient was admitted for evaluation and treatment and was found to have a raised area on the right lateral anterior calf with surrounding erythema. Consult was placed for surgical evaluation of a possible abscess. The patient states he knows nothing of the area, it does not bother him unless it is touched or hit. He is unaware of any trauma that may have caused the injury. 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 Social History Comments: [facility] rehab Allergies & Medications Medications and Allergies Allergies fentanyl Allergy (Unknown, Verified 07/12/24 15:55) Dizziness, loopy indomethacin (From Indocin) Allergy (Unknown, Verified 07/12/24 15:55) Dizziness zolpidem (From Ambien) Allergy (Unknown, Verified 07/12/24 15:55) Confusion, memory loss Penicillins Allergy (Verified 07/12/24 15:55) Weakness Home Medications magnesium oxide 400 mg PO DAILY 06/06/23 [History Confirmed 07/12/24] allopurinol 300 mg tablet 300 mg PO DAILY #90 tabs 06/09/23 [Rx Confirmed 07/12/24] atorvastatin 40 mg tablet 40 mg PO DAILY #90 tabs 09/01/23 [Rx Confirmed 07/12/24] eszopiclone 3 mg tablet 3 mg PO QHS 90 days #90 tabs 11/29/23 [Rx Confirmed 07/12/24] levothyroxine 150 mcg tablet (Synthroid) 150 mcg PO QAM #90 tabs 11/29/23 [Rx Confirmed 07/12/24] trazodone 50 mg tablet 50 mg PO QHS PRN insomnia #90 tabs 11/29/23 [Rx Confirmed 07/12/24] acetaminophen 500 mg tablet (Acetaminophen Extra Strength) 500 mg PO TID 03/10/24 [History Confirmed 07/12/24] bumetanide 1 mg tablet 1 mg PO DAILY 03/10/24 [History Confirmed 07/12/24] carvedilol 3.125 mg tablet 3.125 mg PO BID 30 days #60 tabs 03/15/24 [Rx Confirmed 07/12/24] oxycodone-acetaminophen 5 mg-325 mg tablet 1 tab PO Q6HR PRN pain 2 days #8 tabs03/15/24 [Rx Confirmed 07/12/24] apixaban 2.5 mg tablet (Eliquis) 5 mg PO BID 07/12/24 [History Confirmed 07/12/24] doxycycline hyclate 100 mg tablet 100 mg PO BID 07/12/24 [History Confirmed 07/12/24] ipratropium 0.5 mg-albuterol 3 mg (2.5 mg base)/3 mL nebulization soln 3 ml inhalation Q6HR PRN shortness of breath or wheezing 07/12/24 [History Confirmed 07/12/24] potassium chloride 20 mEq tablet,extended release(part/cryst) (Klor-Con M) 20 meq PO DAILY 07/12/24[History Confirmed 07/12/24] Active Medications Acetaminophen (Acetaminophen 500 Mg Tablet) 500 mg PO TID [facility] Stop: 07/12/25 21:59 Last Admin: 07/14/24 09:05 Dose: 500 mg Acetaminophen (Acetaminophen 325 Mg Tablet) 650 mg PO Q6HR PRN PRN Reason: Pain Scale 1 - 3 or fever Stop: 07/12/25 16:59 Albuterol/Ipratropium (Ipratropium/Albuterol 0.5-3 Mg 3 Ml Ampul.Neb) 3 ml INHALATION Q6HR PRN PRN Reason: shortness of breath or wheezing Stop: 07/12/25 16:56 Allopurinol (Allopurinol 300 Mg Tablet) 300 mg PO DAILY ANIBAL Stop: 07/13/25 08:59 Last Admin: 07/14/24 09:05 Dose: 300 mg Atorvastatin Calcium (Atorvastatin 40 Mg Tablet) 40 mg PO DAILY ANIBAL Stop: 07/13/25 08:59 Last Admin: 07/14/24 09:05 Dose: 40 mg Furosemide (Furosemide 40 Mg/4 Ml Vial) 40 mg IV-PUSH BID@0800,1600 ANIBAL Stop: 07/13/25 07:59 Last Admin: 07/14/24 09:05 Dose: 40 mg Vancomycin HCl 1.25 gm/ (Dextrose) 275 mls @ 183.333 mls/hr IV Q12H ANIBAL Stop: 07/13/25 17:59 Last Admin: 07/14/24 09:05 Dose: 183.33 mls/hr Cefepime HCl (Maxipime) 2 gm in 50 mls @ 12.5 mls/hr IV Q12H [facility] Last Admin: 07/14/24 09:05 Dose: 12.5 mls/hr Levothyroxine Sodium (Levothyroxine 150 Mcg Tablet) 150 mcg PO DAILY.629 [facility] Stop: 07/13/25 06:29 Last Admin: 07/14/24 06:43 Dose: 150 mcg Magnesium Oxide (Magnesium Oxide 400 Mg Tablet) 400 mg PO DAILY ANIBAL Stop: 07/13/25 08:59 Last Admin: 07/14/24 09:05 Dose: 400 mg Eszopiclone 3 Mg (Tablet) 3 mg PO QHS ANIBAL Stop: 07/12/25 21:59 Last Admin: 07/13/24 21:44 Dose: Not Given Pom (Eszopiclone 3 (Mg Tablet)) 3 mg PO QHS [facility] Stop: 07/20/25 21:59 Oxycodone/Acetaminophen (Oxycodone/Acetaminophen 5-325 Mg Tablet) 1 tab PO Q4H PRN PRN Reason: Pain Scale 4 - 7 Last Admin: 07/13/24 22:05 Dose: 1 tab Polyethylene Glycol (Polyethylene Glycol 3350 17 Gm Powd.Pack) 17 gm PO BID [facility] Stop: 07/14/25 10:04 Potassium Chloride (Potassium Chloride Er 20 Meq Tab.Er.Prt) 20 meq PO DAILY [facility] Stop: 07/13/25 08:59 Last Admin: 07/14/24 09:05 Dose: 20 meq Sennosides (Sennosides Syrup 8.8 Mg/5 Ml Udc) 8.8 mg PO BID [facility] Stop: 07/14/25 10:04 Sodium Chloride (Sodium Chloride 0.9 % 10 Ml Syringe) 0 ml IV-PUSH PRN PRN PRN Reason: Flush Stop: 07/12/25 14:40 Last Admin: 07/12/24 16:12 Dose: 10 ml Trazodone HCl (Trazodone 50 Mg Tablet) 50 mg PO QHS PRN PRN Reason: insomnia Stop: 07/12/25 16:56 Last Admin: 07/13/24 21:44 Dose: 50 mg Vancomycin HCl (Vancomycin - Pharmacy Dosing 1 Each Miscell) 1 each IV ONCE PRN; Protocol PRN Reason: ZZ.Pharmacy Consult Exam Physical Exam Vital Signs: Temp Pulse Resp BP Pulse Ox O2 Del Method O2 Flow Rate 98.3 F 74 18 115/62 97 Room Air 2 07/14/24 08:00 07/14/24 08:00 07/14/24 08:00 07/14/24 08:00 07/14/24 08:00 07/14/24 08:00 07/13/24 04:00 Const General: cooperative, no acute distress and frail appearing Nutritional Appearance: average body habitus Orientation: alert, awake and oriented x3 Resp Effort & Inspection: normal respiratory effort and able to speak in complete sentences Auscultation: clear to auscultation bilaterally GI Inspection: normal to inspection and non-distended Palpation: soft Auscultation: normal bowel sounds Skin Other: Right anterior lateral calf has a 4 cm in diameter raised area with surrounding cellulitis, no evidence of drainage. Results - Gen. Surgery Pain Assessment Lower Back: Pain Description: Chronic and Aching Pain Intensity: 4 Intake and Output 24 hour I&O: Intake & Output 07/13/24 07/14/24 07/14/24 23:59 07:59 15:59 Intake Total 1175 / 1875 250 / 250 Output Total 1800 / 1800 850 / 850 Balance -625 / 75 -600 / -600 Weight 90.2 kg Labs 07/14/24 05:17 07/14/24 05:17 Laboratory Results - last 72 hr 07/14/24 05:17: Corrected WBC 15.7 H, Uncorrected WBC Count 15.7 H, RBC 2.63 L, Hgb 7.8 L, Hct 24.0L, MCV 91.5, MCH 29.8, MCHC 32.5, RDW 18.4 H, Plt Count 147 L, MPV 7.9, Neut % (Auto) 84.9, Lymph %(Auto) 7.4, [place] % (Auto) 6.1, Eos % (Auto) 1.4, Baso % (Auto) 0.2, Nucleat RBC Rel Count 0.1, Neut# (Auto) 13.3 H, Lymph # (Auto) 1.2, [place] # (Auto) 1.0 H, Eos # (Auto) 0.2, Baso # (Auto) 0.0, PHA Creatinine Clear 36.75, Sodium 132 L, Potassium 3.3 L, Chloride 101, Carbon Dioxide 22.1, Anion Gap 12.2, BUN 34 H, Creatinine 1.63 H, Est GFR (CKD-EPI) 41.809, Glucose 81, Calcium 8.2 L, Total Bilirubin 0.4, AST 11 L, ALT 4 L, Alkaline Phosphatase 79, Total Protein 5.2 L, Albumin 2.7 L, Globulin 2.5, Albumin/Globulin Ratio 1.1 07/13/24 05:14: Corrected WBC 26.7 H, Uncorrected WBC Count 26.7 H, RBC 2.77 L, Hgb 8.0 L, Hct 25.1L, MCV 90.9, MCH 29.1, MCHC 32.0 L, RDW 18.4 H, Plt Count 179, MPV 7.7, Neut % (Auto) 90.2, Lymph %(Auto) 2.7, [place] % (Auto) 6.8, Eos % (Auto) 0.1, Baso % (Auto) 0.2, Nucleat RBC Rel Count 0.1, Neut# (Auto) 24.1 H, Lymph # (Auto) 0.7 L, [place] # (Auto) 1.8 H, Eos # (Auto) 0.0, Baso # (Auto) 0.1, Platelet Estimate Normal, Large Platelets Slight, Plt Morphology Comment N/A, RBC Morphology N/A, Polychromasia Slight, Hypochromasia Slight, Poikilocytosis Moderate, Anisocytosis Slight, Microcytosis Slight, Tear Drop Cells Slight, Ovalocytes Slight, Acanthocytes (Spur) Slight, Schistocytes Slight, PHA Creatinine Clear 34.84, Sodium 133 L, Potassium 3.9, Chloride 101, Carbon Dioxide 24.2, Anion Gap11.7, BUN 34 H, Creatinine 1.75 H, Est GFR (CKD-EPI) 38.393, Glucose 66 L, Calcium 8.1 L, Phosphorus 3.0, Magnesium 1.8 L, Total Bilirubin 0.5, AST 11 L, ALT 5 L, Alkaline Phosphatase 69, Total Protein 4.9 L D, Albumin 2.6 L, Globulin 2.3, Albumin/Globulin Ratio 1.1 07/12/24 23:39: Lactic Acid 2.2 H* 07/12/24 20:26: Corrected WBC 21.3 H, Uncorrected WBC Count 21.3 H, RBC 3.07 L, Hgb 9.0 L, Hct 28.2L, MCV 91.9, MCH 29.4, MCHC 32.0 L, RDW 18.2 H, Plt Count 217, MPV 7.3, Neut % (Auto) N/A, Lymph % (Auto) N/A, [place] % (Auto) N/A, Eos % (Auto) N/A, Baso % (Auto) N/A, Nucleat RBC Rel Count N/A, Neut # (Auto) N/A, Lymph # (Auto) N/A, [place] # (Auto) N/A, Eos # (Auto) N/A, Baso # (Auto) N/A, BandNeutrophils % 3, Lymphocytes % 2 L, Monocytes % 1 L, Eosinophils % 1, Segmented Neutrophils 93 H, MonocyteDist Width 29.58 H, Platelet Estimate Normal, Plt Morphology Comment Normal, RBC Morphology N/A, Poikilocytosis Slight, Anisocytosis Slight, Microcytosis Slight, Ovalocytes Slight, Stomatocytes Slight, Lactic Acid 3.0 H* 07/12/24 18:49: Lactic Acid 2.2 H* 07/12/24 16:19: Urine Color Red A, Urine Appearance Turbid A, Urine pH , Ur Specific Delta 1.020,Urine Protein , Urine Glucose (UA) , Urine Ketones , Urine Occult Blood , Urine Nitrite , Urine Bilirubin , Urine Urobilinogen , Ur Leukocyte Esterase , Urine RBC Innumerable H, Urine WBC 10-19 H, UrSquamous Epith Cells 0-1, Urine Bacteria 1+ H 07/12/24 15:03: SARS-CoV-2 Rap RNA(RT-PCR) Negative 07/12/24 15:00: Corrected WBC 6.5, Uncorrected WBC Count 6.5, RBC 3.28 L, Hgb 9.9 L, Hct 29.8 L, MCV 90.8, MCH 30.1, MCHC 33.2, RDW 17.9 H, Plt Count 288, MPV7.2, Neut % (Auto) 93.8, Lymph % (Auto) 4.2, [place] % (Auto) 0.4, Eos % (Auto) 1.3, Baso % (Auto) 0.3, Nucleat RBC Rel Count 0.2, Neut # (Auto)6.3, Lymph # (Auto) 0.3 L, [place] # (Auto) 0.0, Eos # (Auto) 0.1, Baso # (Auto) 0.0, Monocyte Dist Width Test not performed, PHA Creatinine Clear 38.97, Sodium 135 L, Potassium 3.9, Chloride 102, Carbon Dioxide 27.2, Anion Gap 9.7, BUN 33 H, Creatinine 1.62 H, Est GFR (CKD-EPI) 42.119, Glucose 69 L, Lactic Acid 2.3 H*, Calcium 9.0, Magnesium 1.7 L, Total Bilirubin 0.6, AST 13, ALT 6 L, Alkaline Phosphatase 100, Troponin I High Sens 21 H, B-Natriuretic Peptide 164.0 H, TotalProtein 6.7, Albumin 3.4 L, Globulin 3.3, Albumin/Globulin Ratio 1.0 Microbiology Microbiology - Results from entire visit 07/12/24 16:19 Clean Void Midstream Urine Culture - Final Pseudomonas aeruginosa 07/12/24 15:07 Blood - Left Forearm Blood Culture - Preliminary Enterococcus faecalis Pseudomonas aeruginosa 07/12/24 15:07 Blood - Left Forearm Bacterial ID (NA Multiplex Assay) - Final 07/12/24 15:00 Blood - Left Arm Blood Culture - Preliminary Pseudomonas aeruginosa 07/12/24 15:00 Blood - Left Arm Bacterial ID (NA Multiplex Assay) - Final 07/13/24 18:56 Nasal Nasal Screen MRSA/MSSA - Final 07/13/24 17:50 Stool Stool Occult Blood (BELLA) - Final 07/12/24 15:03 Nasopharyngeal SARS-CoV-2, Influenza & RSV (PCR) - Final A&P - General Surgery (1) Sepsis: Qualifiers: Sepsis acute organ dysfunction status: without acute organ dysfunction (2) Hematuria: Qualifiers: Hematuria type: gross Qualified Code(s): R31.0 - Gross hematuria (3) Abscess: Plan Patient was admitted for hematuria was found to have an area of cellulitis and possible abscess on the right anterior lateral calf. There is no evidence of drainage at this time. I will get a CT of the right lower extremity for furtherevaluation and determine if this is indeed an abscess that needsdrainage. Documented By: Bryce Villeda DO 07/14/24 12 15 Signed By: <Electronically signed by Bryce Villeda DO> 07/14/24 1221 [facility] Work Phone: [phone] [facility] Work Phone: [phone]) 248-975405-09-2025 Consult note Author Bayron farnsworth [facility] HospitalNote Date/TimeMay 2024 2:49[place] [address] Urology Consult Note Signed Patient: Tavo Wallis Jr MR# : [id number] : 1940 Acct:[id number] Age/Sex: 83 / M Adm Date: 5 Loc: Room: [address] [place] [address] Type: ADM IN Attending Dr: Mario Jordan MD Copies to: MD Sandip Fajardo DO Bayron Tom MD~ History of Present Illness Consult Details Consult Date: 07/13/2024 Reason for Urology Consult: Gross hematuria Requesting Provider: Mario Jordan MD HPI: Patient is a 83-year-old male who urology is consulted for gross hematuria. He has a chronic indwelling Chou catheter and secondary to acute urinary retentionmonths ago for which he has failed multiple void trials. He presented to the emergency room with gross hematuria with clots and his Chou catheter was upsized to a three-way catheter with continuous bladder irrigation initiated. Urine is currently clear yellow. Of note, yesterday, patient had a cystoscopy for evaluation of his bladder outlet with his urologist. Currently doing well. He is slightly hypotensive, has leukocytosis with 26 and is on antibiotics. He denies any prior history of recurrent urinary tract infection, no prior history of nephrolithiasis and he denies any flank pain or suprapubic discomfort. No imaging done on admission. 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 Social History Comments: [facility] rehab Meds Medications and Allergies Allergies fentanyl Allergy (Unknown, Verified 07/12/24 15:55) Dizziness, loopy indomethacin (From Indocin) Allergy (Unknown, Verified 07/12/24 15:55) Dizziness zolpidem (From Ambien) Allergy (Unknown, Verified 07/12/24 15:55) Confusion, memory loss Penicillins Allergy (Verified 07/12/24 15:55) Weakness Home Medications magnesium oxide 400 mg PO DAILY 06/06/23 [History Confirmed 07/12/24] allopurinol 300 mg tablet 300 mg PO DAILY #90 tabs 06/09/23 [Rx Confirmed 07/12/24] atorvastatin 40 mg tablet 40 mg PO DAILY #90 tabs 09/01/23 [Rx Confirmed 07/12/24] eszopiclone 3 mg tablet 3 mg PO QHS 90 days #90 tabs 11/29/23 [Rx Confirmed 07/12/24] levothyroxine 150 mcg tablet (Synthroid) 150 mcg PO QAM #90 tabs 11/29/23 [Rx Confirmed 07/12/24] trazodone 50 mg tablet 50 mg PO QHS PRN insomnia #90 tabs 11/29/23 [Rx Confirmed 07/12/24] acetaminophen 500 mg tablet (Acetaminophen Extra Strength) 500 mg PO TID 03/10/24 [History Confirmed 07/12/24] bumetanide 1 mg tablet 1 mg PO DAILY 03/10/24 [History Confirmed 07/12/24] carvedilol 3.125 mg tablet 3.125 mg PO BID 30 days #60 tabs 03/15/24 [Rx Confirmed 07/12/24] oxycodone-acetaminophen 5 mg-325 mg tablet 1 tab PO Q6HR PRN pain 2 days #8 tabs03/15/24 [Rx Confirmed 07/12/24] apixaban 2.5 mg tablet (Eliquis) 5 mg PO BID 07/12/24 [History Confirmed 07/12/24] doxycycline hyclate 100 mg tablet 100 mg PO BID 07/12/24 [History Confirmed 07/12/24] ipratropium 0.5 mg-albuterol 3 mg (2.5 mg base)/3 mL nebulization soln 3 ml inhalation Q6HR PRN shortness of breath or wheezing 07/12/24 [History Confirmed 07/12/24] potassium chloride 20 mEq tablet,extended release(part/cryst) (Klor-Con M) 20 meq PO DAILY 07/12/24[History Confirmed 07/12/24] Exam Physical Exam Vital Signs: Temp Pulse Resp BP Pulse Ox O2 Del Method O2 Flow Rate 97.8 F 85 20 85/59 L 97 Room Air 2 07/13/24 07:47 07/13/24 13:05 07/13/24 11:40 07/13/24 13:07/13/24 11:40 07/13/24 11:40 07/13/24 04:00 Narrative: General: Alert and oriented x 3, NAD Cardiovascular: Regular rate and rhythm Lungs: Nonlabored breathing on supplemental oxygen Abdomen: Soft, nontender, nondistended with no guarding or rigidity noted : No flank or suprapubic tenderness noted, Chou catheter in place with clear yellow urine 22 Japanese three-way Skin: Warm and dry Extremities: No peripheral edema noted Const General: healthy appearing Results - Urology Labs 07/13/24 05:14 07/13/24 05:14 Labs: Laboratory Results - Last 48 hrs. 07/13/24 05:14: Corrected WBC 26.7 H, Uncorrected WBC Count 26.7 H, RBC 2.77 L, Hgb 8.0 L, Hct 25.1L, MCV 90.9, MCH 29.1, MCHC 32.0 L, RDW 18.4 H, Plt Count 179, MPV 7.7, Neut % (Auto) 90.2, Lymph %(Auto) 2.7, [place] % (Auto) 6.8, Eos % (Auto) 0.1, Baso % (Auto) 0.2, Nucleat RBC Rel Count 0.1, Neut# (Auto) 24.1 H, Lymph # (Auto) 0.7 L, [place] # (Auto) 1.8 H, Eos # (Auto) 0.0, Baso # (Auto) 0.1, Platelet Estimate Normal, Large Platelets Slight, Plt Morphology Comment N/A, RBC Morphology N/A, Polychromasia Slight, Hypochromasia Slight, Poikilocytosis Moderate, Anisocytosis Slight, Microcytosis Slight, Tear Drop Cells Slight, Ovalocytes Slight, Acanthocytes (Spur) Slight, Schistocytes Slight, PHA Creatinine Clear 34.84, Sodium 133 L, Potassium 3.9, Chloride 101, Carbon Dioxide 24.2, Anion Gap11.7, BUN 34 H, Creatinine 1.75 H, Est GFR (CKD-EPI) 38.393, Glucose 66 L, Calcium 8.1 L, Phosphorus 3.0, Magnesium 1.8 L, Total Bilirubin 0.5, AST 11 L, ALT 5 L, Alkaline Phosphatase 69, Total Protein 4.9 L D, Albumin 2.6 L, Globulin 2.3, Albumin/Globulin Ratio 1.1 07/12/24 23:39: Lactic Acid 2.2 H* 07/12/24 20:26: Corrected WBC 21.3 H, Uncorrected WBC Count 21.3 H, RBC 3.07 L, Hgb 9.0 L, Hct 28.2L, MCV 91.9, MCH 29.4, MCHC 32.0 L, RDW 18.2 H, Plt Count 217, MPV 7.3, Neut % (Auto) N/A, Lymph % (Auto) N/A, [place] % (Auto) N/A, Eos % (Auto) N/A, Baso % (Auto) N/A, Nucleat RBC Rel Count N/A, Neut # (Auto) N/A, Lymph # (Auto) N/A, [place] # (Auto) N/A, Eos # (Auto) N/A, Baso # (Auto) N/A, BandNeutrophils % 3, Lymphocytes % 2 L, Monocytes % 1 L, Eosinophils % 1, Segmented Neutrophils 93 H, MonocyteDist Width 29.58 H, Platelet Estimate Normal, Plt Morphology Comment Normal, RBC Morphology N/A, Poikilocytosis Slight, Anisocytosis Slight, Microcytosis Slight, Ovalocytes Slight, Stomatocytes Slight, Lactic Acid 3.0 H* 07/12/24 18:49: Lactic Acid 2.2 H* 07/12/24 16:19: Urine Color Red A, Urine Appearance Turbid A, Urine pH , Ur Specific Delta 1.020,Urine Protein , Urine Glucose (UA) , Urine Ketones , Urine Occult Blood , Urine Nitrite , Urine Bilirubin , Urine Urobilinogen , Ur Leukocyte Esterase , Urine RBC Innumerable H, Urine WBC 10-19 H, UrSquamous Epith Cells 0-1, Urine Bacteria 1+ H 07/12/24 15:03: SARS-CoV-2 Rap RNA(RT-PCR) Negative 07/12/24 15:00: Corrected WBC 6.5, Uncorrected WBC Count 6.5, RBC 3.28 L, Hgb 9.9 L, Hct 29.8 L, MCV 90.8, MCH 30.1, MCHC 33.2, RDW 17.9 H, Plt Count 288, MPV7.2, Neut % (Auto) 93.8, Lymph % (Auto) 4.2, [place] % (Auto) 0.4, Eos % (Auto) 1.3, Baso % (Auto) 0.3, Nucleat RBC Rel Count 0.2, Neut # (Auto)6.3, Lymph # (Auto) 0.3 L, [place] # (Auto) 0.0, Eos # (Auto) 0.1, Baso # (Auto) 0.0, Monocyte Dist Width Test not performed, PHA Creatinine Clear 38.97, Sodium 135 L, Potassium 3.9, Chloride 102, Carbon Dioxide 27.2, Anion Gap 9.7, BUN 33 H, Creatinine 1.62 H, Est GFR (CKD-EPI) 42.119, Glucose 69 L, Lactic Acid 2.3 H*, Calcium 9.0, Magnesium 1.7 L, Total Bilirubin 0.6, AST 13, ALT 6 L, Alkaline Phosphatase 100, Troponin I High Sens 21 H, B-Natriuretic Peptide 164.0 H, TotalProtein 6.7, Albumin 3.4 L, Globulin 3.3, Albumin/Globulin Ratio 1.0 Microbiology Microbiology: 07/12/24 16:19 Clean Void Midstream Urine Culture - Preliminary Gram Negative Bacilli 07/12/24 15:00 Blood - Left Arm Blood Culture - Preliminary Pseudomonas aeruginosa 07/12/24 15:00 Blood - Left Arm Bacterial ID (NA Multiplex Assay) - Final 07/12/24 15:07 Blood - Left Forearm Blood Culture - Preliminary Enterococcus faecalis Gram Negative Bacilli 07/12/24 15:07 Blood - Left Forearm Bacterial ID (NA Multiplex Assay) - Final 07/12/24 15:03 Nasopharyngeal SARS-CoV-2, Influenza & RSV (PCR) - Final Assessment/Plan (1) Sepsis: Plan: With leukocytosis of 26, positive blood cultures growing Pseudomonas, Enterococcus faecalis we willobtain a stat CT abdomen pelvis to rule out any obstructive uropathy Continue with broad-spectrum antibiotics and treat with culture sensitive antibiotics once final cultures have resolved Pain and nausea control as needed Appreciate medicine team recommendations for medical management Qualifiers: Sepsis acute organ dysfunction status: without acute organ dysfunction Code(s): A41.9 - Sepsis, unspecified organism (2) Hematuria: Plan: Likely secondary to procedure, traumatic insertion Gross hematuria has resolved. Maintain Chou catheter for now Patient will need to follow-up with his primary urologist upon discharge Qualifiers: Hematuria type: gross Qualified Code(s): R31.0 - Gross hematuria Code(s): R31.9 - Hematuria, unspecified Documented By: Bayorn Tom MD 07/13 144 Signed By: <Electronically signed by Bayron Tom MD> 07/13/24 1449 [facility] Work Phone: 1(856) 518-604905-09-2025 Progress note Author Mario Jordan [facility] HospitalNote Date/TimeMay 2024 2:[place] [address] Hospitalist Progress Note Signed Patient: Tavo Wallis Jr MR# : [id number] : 1940 Acct:[id number] Age/Sex: 83 / M Adm Date: 5 Loc: Room: [address] [place] [address] Type: ADM IN Attending Dr: Mario Jordan MD Copies to: ~ Date of Service: 07/13/2024 Subjective Subjective Narrative: To be lying in the bed and is on room air. Chou catheter in situ hematuria improving. Exam Physical Exam Vital Signs: Temp Pulse Resp BP Pulse Ox O2 Del Method O2 Flow Rate 97.8 F 85 20 85/59 L 97 Room Air 2 07/13/24 07:47 07/13/24 13:05 07/13/24 11:40 07/13/24 13:05 07/13/24 11:40 07/13/24 11:40 07/13/24 04:00 Narrative: General: Awake alert, no acute distress HEENT: head atraumatic, normocephalic, moist mucous membranes Neck: supple no masses, no lymphadenopathy CVS: regular rate and rhythm, no murmurs or gallops Respiratory: diminished breath sound with crackles, no wheezing GI: soft, nondistended, nontender, positive bowel sounds with no organomegaly Extremity: moves all extremities, no restrictions of movements, no calf tenderness bilateral 3-4+ pedal edema Neuro: AOx3, CN II-VII intact. Moves all extremities in all planes of motion. Skin: intact no rashes or lesions Objective Lab Results 07/13/24 05:14 05/09/25 05:14 Microbiology Results Microbiology 07/12/24 16:19 Clean Void Midstream Urine Culture - Preliminary Gram Negative Bacilli 07/12/24 15:00 Blood - Left Arm Blood Culture - Preliminary Pseudomonas aeruginosa 07/12/24 15:00 Blood - Left Arm Bacterial ID (NA Multiplex Assay) - Final 07/12/24 15:07 Blood - Left Forearm Blood Culture - Preliminary Enterococcus faecalis Gram Negative Bacilli 07/12/24 15:07 Blood - Left Forearm Bacterial ID (NA Multiplex Assay) - Final 07/12/24 15:03 Nasopharyngeal SARS-CoV-2, Influenza & RSV (PCR) - Final Meds Allergies and Active Meds Allergies fentanyl Allergy (Unknown, Verified 07/12/24 15:55) Dizziness, loopy indomethacin (From Indocin) Allergy (Unknown, Verified 07/12/24 15:55) Dizziness zolpidem (From Ambien) Allergy (Unknown, Verified 07/12/24 15:55) Confusion, memory loss Penicillins Allergy (Verified 07/12/24 15:55) Weakness Active Meds: Active Medications Generic Name Dose Route Start Last Admin Trade Name Freq PRN Reason Stop Dose Admin Acetaminophen 500 mg 07/12/24 22:00 07/13/24 14:10 Acetaminophen 500 Mg Tablet PO 07/12/25 21:59 500 mg TID ANIBAL Administration Acetaminophen 650 mg 07/12/24 17:00 Acetaminophen 325 Mg Tablet PO 07/12/25 16:59 Q6HR PRN Pain Scale 1 - 3 or fever Albuterol/Ipratropium 3 ml 07/12/24 16:57 Ipratropium/Albuterol 0.5-3 Mg 3 Ml Ampul.Neb INHALATION 07/12/25 16:56 Q6HR PRN shortness of breath or wheezing Allopurinol 300 mg 07/13/24 09:00 07/13/24 08:22 Allopurinol 300 Mg Tablet PO 07/13/25 08:59 300 mg DAILY ANIBAL Administration Atorvastatin Calcium 40 mg 07/13/24 09:00 07/13/24 08:22 Atorvastatin 40 Mg Tablet PO 07/13/25 08:59 40 mg DAILY ANIBAL Administration Furosemide 40 mg 07/13/24 08:00 07/13/24 08:22 Furosemide 40 Mg/4 Ml Vial IV-PUSH 07/13/25 07:59 40 mg BID@0800,1600 ANIBAL Administration Cefepime HCl 1 gm in 50 mls @ 12.5 mls/hr 07/12/24 20:00 07/13/24 08:22 Maxipime IV 100 mls/hr Q12H ANIBAL Administration Vancomycin HCl 1.25 gm/ 275 mls @ 183.333 mls/hr 07/13/24 18:00 Dextrose IV 07/13/25 17:59 Q12H ANIBAL Levothyroxine Sodium 150 mcg 07/13/24 06:30 07/13/24 06:20 Levothyroxine 150 Mcg Tablet PO 07/13/25 06:29 150 mcg DAILY.0630 ANIBAL Administration Magnesium Oxide 400 mg 07/13/24 09:00 07/13/24 08:22 Magnesium Oxide 400 Mg Tablet PO 07/13/25 08:59 400 mg DAILY ANIBAL Administration Pom (Eszopiclone 3 3 mg 07/12/24 22:00 07/12/24 21:58 Mg Tablet) PO 07/12/25 21:59 Not Given QHS ANIBAL Oxycodone/Acetaminophen 1 tab 07/12/24 17:00 Oxycodone/Acetaminophen 5-325 Mg Tablet PO Q4H PRN Pain Scale 4 - 7 Potassium Chloride 20 meq 07/13/24 09:00 07/13/24 08:22 Potassium Chloride Er 20 Meq Tab.Er.Prt PO 07/13/25 08:59 20 meq DAILY ANIBAL Administration Sodium Chloride 0 ml 07/12/24 14:41 07/12/24 16:12 Sodium Chloride 0.9 % 10 Ml Syringe IV-PUSH 07/12/25 14:40 10 ml PRN PRN Administration Flush Trazodone HCl 50 mg 07/12/24 16:57 Trazodone 50 Mg Tablet PO 07/12/25 16:56 QHS PRN insomnia Vancomycin HCl 1 each 07/12/24 17:05 Vancomycin - Pharmacy Dosing 1 Each Miscell IV ONCE PRN ZZ.Pharmacy Consult Protocol A&P - Hospitalist Assessment/Plan (1) Hematuria: (2) Hypoxia: (3) CHF exacerbation: (4) Sepsis: (5) Hypothyroidism: (6) Hypertension: (7) BPH (benign prostatic hyperplasia): (8) Atrial fibrillation: Plan This is a 83-year-old male with significant past medical history of A-fib, hypothyroidism, hypertension, BPH on chronic Chou since March 2024 exchangingevery month, hyperlipidemia, gout, cardiomyopathy, history of CHF, was sent [facility] ED from [facility] for chief concern for hematuria. Patient had appointment with urologist today who exchangehis Chou and patient mentions that he has been bleeding since thenwith minimal urine output. Daughter at bedside. Denies any pain any urgency frequency dysuria or lower abdominal pain. Denies any flank pain. Denies any fever or chills. Patient is on antibiotics for shortness of breath for couple of days. He mentions worsening shortness of breath with cough and some sputum production for 4 to 5 days. In the ED initially he was slightly hypotensive andresolved on its own. Patient got Lasix 40 units and magnesium replacement. Lactate was 2.3. Lab work shows WBC of 6.5, creatinine 1.62, lactate of 2.3, magnesium 1.7, normal liver enzymes, troponin 21, BNP is pending. Urinalysis shows innumerable RBCs and WBC of 10-19. And 1+ bacteria. COVID test negative. Chest x-ray shows minimal hilar congestion no consolidation suggesting pneumonia. Urine culture and blood culture pending. Patient was also started on broad-spectrum antibiotics. Urine culture grew gram-negative bacilli. Finalculture pending. And blood culture grew gram-negative bacilli and Enterococcus faecalis. Previous history of urine culture growing Pseudomonas and Proteus sensitive to cefepime. Plan: - Admitted to regular nursing floor with telemetry - Continue on broad-spectrum antibiotics for concern for pneumonia/UTI - Follow-up sputum culture blood culture and urine culture and MRSA PCR - Started on continuous bladder irrigation as per urologist recommendation. Urology on consult appreciate recommendation - Eliquis on hold in setting of hematuria - Continue POA medications-allopurinol, Lipitor, Bumex, magnesium, trazodone - Continue on IV diuresis - Monitor input and output - Daily weights - Heart healthy diet - PT/OT-residential facility - Full code SCD for DVT prophylaxis Documented By: Mario Jordan MD 07/13/24 1438 Signed By: <Electronically signed by Mario Jordan MD> 07/13/24 1439 [facility] Work Phone: [phone]) 472-371705-09-2025 [facility]iology [facility] Work Phone: 1(342) 841-843205-08-2025 History and physical note Author Mario Jordan [facility] HospitalNote Date/TimeMay 2024 6:49pmAlicia [place] [id number] Hospitalist H&P Signed Patient: Tavo Wallis Jr MR# : [id number] : 1940 Acct:[id number] Age/Sex: 83 / M Adm Date: 5 Loc: Room: [address] [place] [address] Type: ADM IN Attending Dr: Mario Jordan MD Copies to: MD Sandip Fajardo DO~ HPI DATE OF EXAMINATION: 07/12/24 CHIEF COMPLAINT: Hematuria HISTORY OF PRESENT ILLNESS: This is a 83-year-old male with significant past medical history of A-fib, hypothyroidism, hypertension, BPH on chronic Chou since March 2024 exchangingevery month, hyperlipidemia, gout, cardiomyopathy, history of CHF, was sent [facility] ED from [facility] for chief concern for hematuria. Patient had appointment with urologist today who exchangehis Chou and patient mentions that he has been bleeding since thenwith minimal urine output. Daughter at bedside. Denies any pain any urgency frequency dysuria or lower abdominal pain. Denies any flank pain. Denies any fever or chills. Patient is on antibiotics for shortness of breath for couple of days. He mentions worsening shortness of breath with cough and some sputum production for 4 to 5 days. In the ED initially he was slightly hypotensive andresolved on its own. Patient got Lasix 40 units and magnesium replacement. Lactate was 2.3. Lab work shows WBC of 6.5, creatinine 1.62, lactate of 2.3, magnesium 1.7, normal liver enzymes, troponin 21, BNP is pending. Urinalysis shows innumerable RBCs and WBC of 10-19. And 1+ bacteria. COVID test negative. Chest x-ray shows minimal hilar congestion no consolidation suggesting pneumonia. Urine culture and blood culture pending. Patient was also started on broad-spectrum antibiotics. Review of Systems Review of Systems All other systems reviewed & are negative unless noted below or in HPI [facility] Medical History Insomnia Hypothyroidism Hypertension Constipation BPH (benign prostatic [...] Diagnosed with Cancer Social History Smoking Status: Never smoker Tobacco Type: cigarettes Substance Use Type: None Substance Abuse Comment: 3 drinks a day >6 Meds Medications and Allergies Allergies fentanyl Allergy (Unknown, Verified 07/12/24 15:55) Dizziness, loopy indomethacin (From Indocin) Allergy (Unknown, Verified 07/12/24 15:55) Dizziness zolpidem (From Ambien) Allergy (Unknown, Verified 07/12/24 15:55) Confusion, memory loss Penicillins Allergy (Verified 07/12/24 15:55) Weakness Home Medications magnesium oxide 400 mg PO DAILY 06/06/23 [History Confirmed 07/12/24] allopurinol 300 mg tablet 300 mg PO DAILY #90 tabs 06/09/23 [Rx Confirmed 07/12/24] atorvastatin 40 mg tablet 40 mg PO DAILY #90 tabs 09/01/23 [Rx Confirmed 07/12/24] eszopiclone 3 mg tablet 3 mg PO QHS 90 days #90 tabs 11/29/23 [Rx Confirmed 07/12/24] levothyroxine 150 mcg tablet (Synthroid) 150 mcg PO QAM #90 tabs 11/29/23 [Rx Confirmed 07/12/24] trazodone 50 mg tablet 50 mg PO QHS PRN insomnia #90 tabs 11/29/23 [Rx Confirmed 07/12/24] acetaminophen 500 mg tablet (Acetaminophen Extra Strength) 500 mg PO TID 03/10/24 [History Confirmed 07/12/24] bumetanide 1 mg tablet 1 mg PO DAILY 03/10/24 [History Confirmed 07/12/24] carvedilol 3.125 mg tablet 3.125 mg PO BID 30 days #60 tabs 03/15/24 [Rx Confirmed 07/12/24] oxycodone-acetaminophen 5 mg-325 mg tablet 1 tab PO Q6HR PRN pain 2 days #8 tabs03/15/24 [Rx Confirmed 07/12/24] apixaban 2.5 mg tablet (Eliquis) 5 mg PO BID 07/12/24 [History Confirmed 07/12/24] doxycycline hyclate 100 mg tablet 100 mg PO BID 07/12/24 [History Confirmed 07/12/24] ipratropium 0.5 mg-albuterol 3 mg (2.5 mg base)/3 mL nebulization soln 3 ml inhalation Q6HR PRN shortness of breath or wheezing 07/12/24 [History Confirmed 07/12/24] potassium chloride 20 mEq tablet,extended release(part/cryst) (Klor-Con M) 20 meq PO DAILY 07/12/24[History Confirmed 07/12/24] Exam Physical Exam Vital Signs: Temp Pulse Resp BP Pulse Ox O2 Del Method O2 Flow Rate 98.2 F 95 20 107/51 L 96 Nasal Cannula 2 07/12/24 14:38 07/12/24 18:00 07/12/24 18:00 07/12/24 18:12 07/12/24 18:00 07/12/24 18:00 07/12/24 18:00 Narrative: General: Awake alert, no acute distress HEENT: head atraumatic, normocephalic, moist mucous membranes Neck: supple no masses, no lymphadenopathy CVS: regular rate and rhythm, no murmurs or gallops Respiratory: diminished breath sound with crackles, no wheezing GI: soft, nondistended, nontender, positive bowel sounds with no organomegaly Extremity: moves all extremities, no restrictions of movements, no calf tenderness bilateral 2-3+ pedal edema Neuro: AOx3, CN II-VII intact. Moves all extremities in all planes of motion. Skin: intact no rashes or lesions Results - Hospitalist H&P Lab Results Labs: Laboratory Last Values Corrected WBC 6.5 X10E3/uL (4.1-10.5) 07/12/24 15:00 Uncorrected WBC Count 6.5 x10E3/uL (4.1-10.5) 07/12/24 15:00 RBC 3.28 x10E6/uL (3.90-5.60) L 07/12/24 15:00 Hgb 9.9 g/dL (13.0-17.0) L 07/12/24 15:00 Hct 29.8 % (38.8-50.0) L 07/12/24 15:00 MCV 90.8 fl (83.5-101) 07/12/24 15:00 MCH 30.1 pg (27.5-35.2) 07/12/24 15:00 MCHC 33.2 g/dL (32.5-35.6) 07/12/24 15:00 RDW 17.9 % (12.0-14.8) H 07/12/24 15:00 Plt Count 288 x10E3/uL (150-450) 07/12/24 15:00 MPV 7.2 fl (6.6-10.1) 07/12/24 15:00 Neut % (Auto) 93.8 % (.) 07/12/24 15:00 Lymph % (Auto) 4.2 % (.) 07/12/24 15:00 [place] % (Auto) 0.4 % (.) 07/12/24 15:00 Eos % (Auto) 1.3 % (.) 07/12/24 15:00 Baso % (Auto) 0.3 % (.) 07/12/24 15:00 Nucleat RBC Rel Count 0.2 /100 WBC (0-0.5) 07/12/24 15:00 Neut # (Auto) 6.3 x10E3/uL (1.8-7.7) 07/12/24 15:00 Lymph # (Auto) 0.3 x10E3/uL (1.00-4.8) L 07/12/24 15:00 [place] # (Auto) 0.0 x10E3/uL (0.0-0.8) 07/12/24 15:00 Eos # (Auto) 0.1 x10E3/uL (0.0-0.45) 07/12/24 15:00 Baso # (Auto) 0.0 x10E3/uL (0.0-0.2) 07/12/24 15:00 Monocyte Dist Width Test not performed % (0.00-20.00) 07/12/24 15:00 PHA Creatinine Clear 38.97 07/12/24 15:00 Sodium 135 mmol/L (136-145) L 07/12/24 15:00 Potassium 3.9 mmol/L (3.5-5.1) 07/12/24 15:00 Chloride 102 mmol/L (98-107) 07/12/24 15:00 Carbon Dioxide 27.2 mmol/L (21.0-31.0) 07/12/24 15:00 Anion Gap 9.7 mEq/L (6.0-15.0) 07/12/24 15:00 BUN 33 mg/dL (7-25) H 07/12/24 15:00 Creatinine 1.62 mg/dL (0.70-1.30) H 07/12/24 15:00 Est GFR (CKD-EPI) 42.119 mL/Min 07/12/24 15:00 Glucose 69 mg/dL (70-100) L 07/12/24 15:00 Lactic Acid 2.3 mmol/L (0.5-1.9) H* 07/12/24 15:00 Calcium 9.0 mg/dL (8.6-10.3) 07/12/24 15:00 Magnesium 1.7 mg/dL (1.9-2.7) L 07/12/24 15:00 Total Bilirubin 0.6 mg/dl (0.3-1.0) 07/12/24 15:00 AST 13 U/L (13-39) 07/12/24 15:00 ALT 6 U/L (7-52) L 07/12/24 15:00 Alkaline Phosphatase 100 U/L (34-104) 07/12/24 15:00 Troponin I High Sens 21 ng/L (0-20) H 07/12/24 15:00 Total Protein 6.7 gm/dL (6.4-8.9) 07/12/24 15:00 Albumin 3.4 gm/dL (3.5-5.7) L 07/12/24 15:00 Globulin 3.3 gm/dL 07/12/24 15:00 Albumin/Globulin Ratio 1.0 07/12/24 15:00 Urine Color Red (Yellow) A 07/12/24 16:19 Urine Appearance Turbid (Clear) A 07/12/24 16:19 Urine pH (5.0-9.0) 07/12/24 16:19 Ur Specific Delta 1.020 (1.001-1.030) 07/12/24 16:19 Urine Protein mg/dL (Negative) 07/12/24 16:19 Urine Glucose (UA) mg/dL (Normal) 07/12/24 16:19 Urine Ketones (Negative) 07/12/24 16:19 Urine Occult Blood (Negative) 07/12/24 16:19 Urine Nitrite (Negative) 07/12/24 16:19 Urine Bilirubin (Negative) 07/12/24 16:19 Urine Urobilinogen mg/dL (Normal) 07/12/24 16:19 Ur Leukocyte Esterase (Negative) 07/12/24 16:19 Urine RBC Innumerable /HPF (0-4) H 07/12/24 16:19 Urine WBC 10-19 /HPF (0-4) H 07/12/24 16:19 Ur Squamous Epith Cells 0-1 /HPF (0-2) 07/12/24 16:19 Urine Bacteria 1+ /HPF (None Seen) H 07/12/24 16:19 SARS-CoV-2 Rap RNA(RT-PCR) Negative (Negative) 07/12/24 15:03 Microbiology Results Micro: Microbiology - Results from entire visit 07/12/24 15:03 Nasopharyngeal SARS-CoV-2, Influenza & RSV (PCR) - Final Assessment & Plan Assessment/Plan (1) Hematuria: (2) Hypoxia: (3) CHF exacerbation: (4) Sepsis: (5) Hypothyroidism: (6) Hypertension: (7) BPH (benign prostatic hyperplasia): (8) Atrial fibrillation: Plan This is a 83-year-old male with significant past medical history of A-fib, hypothyroidism, hypertension, BPH on chronic Chou since March 2024 exchangingevery month, hyperlipidemia, gout, cardiomyopathy, history of CHF, was sent [facility] ED from [facility] for chief concern for hematuria. Patient had appointment with urologist today who exchangehis Chou and patient mentions that he has been bleeding since thenwith minimal urine output. Daughter at bedside. Denies any pain any urgency frequency dysuria or lower abdominal pain. Denies any flank pain. Denies any fever or chills. Patient is on antibiotics for shortness of breath for couple of days. He mentions worsening shortness of breath with cough and some sputum production for 4 to 5 days. In the ED initially he was slightly hypotensive andresolved on its own. Patient got Lasix 40 units and magnesium replacement. Lactate was 2.3. Lab work shows WBC of 6.5, creatinine 1.62, lactate of 2.3, magnesium 1.7, normal liver enzymes, troponin 21, BNP is pending. Urinalysis shows innumerable RBCs and WBC of 10-19. And 1+ bacteria. COVID test negative. Chest x-ray shows minimal hilar congestion no consolidation suggesting pneumonia. Urine culture and blood culture pending. Patient was also started on broad-spectrum antibiotics. Plan: - Admitted to regular nursing floor with telemetry - Continue on broad-spectrum antibiotics for concern for pneumonia/UTI - Follow-up sputum culture blood culture and urine culture - Started on continuous bladder irrigation as per urologist recommendation. Urology on consult appreciate recommendation - Eliquis on hold in setting of hematuria - Continue POA medications-allopurinol, Lipitor, Bumex, magnesium, trazodone - Continue on IV diuresis - Monitor input and output - Daily weights - Heart healthy diet - Full code IP vs OBS Justification Based on differential dx, clinical care plan, and risk of adverse events, if untreated, in my clinical judgement this patient requires an acute care setting as: INPATIENT because of an expectation ofan over 2 midnight stay. Estimated length of stay (# of days): 3 Documented By: Mario Jordan MD 07/12/24 1831 Signed By: <Electronically signed by Mario Jordan MD> 07/12/[address] [facility] Work Phone: 1(828) 281-283705-08-2025 Evaluation note* Diagnosis Onset Date Resolution Status Admit Date Atrial fibrillation acuteMay 2024 5:00pmBPH (benign prostatic hyperplasia)acuteMay 2024 5:00pmCHF exacerbationacuteMay 2024 5:00pmHematuriaacuteMay 2024 5:00pmHypertensionacuteMay 2024 5:00pmHypothyroidismacuteMay 2024 5:00pmHypoxiaacuteMay 2024 5:00pmSepsisacuteMay 2024 5:00pm [facility] Work Phone: [phone]) [phone] Evaluation note* Diagnosis Onset Date Resolution Status Admit Date Abscess acuteMay 2024 5:00pmAbscess of left legacuteMay 2024 5:00pmAtrial fibrillationacuteMay 2024 5:00pmBacteremia due to EnterococcusacuteMay 2024 5:00pmBacteremia due to PseudomonasacuteMay 2024 5:00pmBPH (benign prostatic hyperplasia)acuteMay 2024 5:00pmCHF exacerbationacuteMay 2024 5:00pmComplicated UTI (urinary tract infection)acuteMay 2024 5:00pm HematuriaacuteMay 2024 5:00pmHypertensionacuteMay 2024 5:00pm HypothyroidismacuteMay 2024 5:00pmHypoxiaacuteMay 2024 5:00pmSepsis acuteMay 2024 5:00pm [facility] Work Phone: 1([phone]) 406-592005-08-2025 Evaluation note* Diagnosis Onset Date Resolution Status Admit Date Abscess resolvedMay 2024 5:00pmAbscess of left legresolvedMay 2024 5:00pm Atrial fibrillationresolvedMay 2024 5:00pmBacteremia due to Enterococcus resolvedMay 2024 5:00pmBacteremia due to PseudomonasresolvedMay 2024 5:00pmBPH (benign prostatic hyperplasia)2024 5:00pmCHF exacerbationresolvedMay 2024 5:00pmComplicated UTI (urinary tract infection)resolvedJuly 12, 2024 5:00pmHematuriaresolvedMay 2024 5:00pm HypertensionresolvedMay 2024 5:00pmHypothyroidismresolvedMay 2024 5:00pmHypoxiaresolvedMay 2024 5:00pmSepsisresolvedMay 2024 5:00pm [facility] Work Phone: 1([phone]) 366-834705-08-2025 Evaluation note* Diagnosis Onset Date Resolution Status Admit Date Abscess resolvedMay 2024 5:00pmAbscess of left legresolvedMay 2024 5:00pm Atrial fibrillationresolvedMay 2024 5:00pmBacteremia due to Enterococcus resolvedJuly 12, 2024 5:00pmBacteremia due to PseudomonasresolvedMay 2024 5:00pmBPH (benign prostatic hyperplasia)2024 5:00pmCHF exacerbationresolvedMay 2024 5:00pmComplicated UTI (urinary tract infection)2024 5:00pmHematuriaresolvedMay 2024 5:00pm HypertensionresolvedMay 2024 5:00pmHypothyroidismresolvedMay 2024 5:00pmHypoxiaresolvedMay 2024 5:00pmSepsisresolvedMay 2024 5:00pmHx of decompressive lumbar laminectomyacuteJuly 2024 3:12pmNeurogenic claudication due to lumbar spinal stenosisacuteJuly 2024 3:12pmRadicular low back painacuteJuly 2024 3:12pmSevere back painacuteJuly 2024 3:12pm [facility] Work Phone: [phone] Evaluation note* Diagnosis Onset Date Resolution Status Admit Date Abscess resolvedMay 2024 5:00pmAbscess of left legresolvedMay 2024 5:00pm Atrial fibrillationresolvedMay 2024 5:00pmBacteremia due to Enterococcus resolvedJuly 12, 2024 5:00pmBacteremia due to PseudomonasresolvedMay 2024 5:00pmBPH (benign prostatic hyperplasia)resolvedJuly 12, 2024 5:00pmCHF exacerbationresolvedMay 2024 5:00pmComplicated UTI (urinary tract infection)resolvedJuly 12, 2024 5:00pmHematuriaresolvedMay 2024 5:00pm HypertensionresolvedMay 2024 5:00pmHypothyroidismresolvedMay 2024 5:00pmHypoxiaresolvedMay 2024 5:00pmSepsisresolvedMay 2024 5:00pmHx of decompressive lumbar laminectomyacuteJuly 2024 3:12pmNeurogenic claudication due to lumbar spinal stenosisacuteJuly 2024 3:12pmRadicular low back painacuteJuly 2024 3:12pmSevere back painacuteJuly 2024 3:12pmCatheter-associated urinary tract infectionacuteJuly 2024 1:51pm [facility] Work Phone: 1(732) 261-310805-08-2025 Evaluation note* Diagnosis Onset Date Resolution Status Admit Date Abscess resolvedy 2024 5:00pmAbscess of left legresolvedMay 2024 5:00pm Atrial fibrillationresolvedMa2024 5:00pmBacteremia due to Enterococcus resolvedJuly 12, 2024 5:00pmBacteremia due to PseudomonasresolvedMay 2024 5:00pmBPH (benign prostatic hyperplasia)resolvedJuly 12, 2024 5:00pmCHF exacerbationresolvedMay 2024 5:00pmComplicated UTI (urinary tract infection)resolvedJuly 12, 2024 5:00pmHematuriaresolvedMay 2024 5:00pm HypertensionresolvedMay 2024 5:00pmHypothyroidismresolvedMay 2024 5:00pmHypoxiaresolvedMay 2024 5:00pmSepsisresolvedMay 2024 5:00pmHx of decompressive lumbar laminectomyacuteJuly 2024 3:12pmNeurogenic claudication due to lumbar spinal stenosisacuteJuly 2024 3:12pmRadicular low back painacuteJuly 2024 3:12pmSevere back painacuteJuly 2024 3:12pmCatheter-associated urinary tract infectionacuteJuly 2024 1:51pm Abrasion of arm, leftacuteAugust 2024 9:13pmFallacuteAugust 2024 9:13pmIntracranial hemorrhageacuteAugust 2024 9:13pm [facility] Work Phone: 1([phone]) 582-365405-08-2025 Evaluation note* Diagnosis Onset Date Resolution Status Admit Date Abscess resolvedJuly 12, 2024 5:00pmAbscess of left legresy 2024 5:00pm Atrial fibrillationresolvedMa2024 5:00pmBacteremia due to Enterococcus 2024 5:00pmBacteremia due to PseudomonasresolvedMay 2024 5:00pmBPH (benign prostatic hyperplasia)2024 5:00pmCHF exacerbationresolvedMay 2024 5:00pmComplicated UTI (urinary tract infection)resolvedJuly 12, 2024 5:00pmHematuriaresolvedMay 2024 5:00pm HypertensionresolvedMay 2024 5:00pmHypothyroidismresolvedMay 2024 5:00pmHypoxiaresolvedMay 2024 5:00pmSepsisresolvedMay 2024 5:00pmHx of decompressive lumbar laminectomyacuteJuly 2024 3:12pmNeurogenic claudication due to lumbar spinal stenosisacuteJuly 2024 3:12pmRadicular low back painacuteJuly 2024 3:12pmSevere back painacuteJuly 2024 3:12pmCatheter-associated urinary tract infectionacuteJuly 2024 1:51pm Abrasion of arm, leftacuteAugust 2024 7:05amCatheter-associated urinary tract infectionacuteAugust 2024 7:05amFallacuteAugust 2024 7:05amFever acuteAugust 2024 7:05amIntracranial hemorrhageacuteAugust 2024 7:05am [facility] Work Phone: [phone]) 150-887005-08-2025 NotePatient Education Urology Hypospadias, Pediatric Hypospadias is a fairly common defect in male children. It occurs when the opening of the urethra is not in the usual place at the tip of the penis. The urethra is the part of the body that drains urine from the bladder out of the body. In a child with this condition, the urethra is located on the underside of the penis. In mild cases of hypospadias, the urethra opens near the tip of the penis. In other cases, the urethra may open below the ridge of the penis, in the middle of the shaft, or at the base of the penis. Less often, it opens where the penis and scrotum meet. Children with this condition should not be circumcised as newborns. This is because the foreskin may be needed as part of the corrective surgery for this condition. What are the causes? The cause of this condition is not known. It may be passed from parent to child (hereditary). What increases the risk? A child is more likely to have hypospadias if the mother: ??? Used fertility treatments to get . ??? Is age 35 or older. ??? Is with more than one baby. A child is also more likely to have this condition if: ??? He was born early (prematurely). ??? He is smaller in size at compared to other babies. What are the signs or symptoms? Symptoms of hypospadias depend on where the urethra opens. Common symptoms include: ??? Passing urine in abnormal directions or spraying. Later in life, this could cause your child tohave difficulty urinating while standing, and he may need to sit to urinate. ??? The penis curving downward (chordee) when it is erect. Later in life, this could result in difficulty having sex. ??? A urethral opening that is larger than normal. ??? A hooded appearance at the head of the penis due to missing foreskin. This can leave the tip ofthe penis exposed. In some cases, there are no symptoms besides the urethral opening not being in the usual place. How is this diagnosed? This condition is diagnosed with a physical exam after . You may work with a specialist (pediatric urologist) for diagnosis and treatment. How is this treated? If the condition is minor and your child does not have symptoms, he may not need treatment. However, surgery may be needed to create a normal urethra and urethral opening near the tip of the penis. The goal is for the penis to work well and look normal. Surgery: ??? Is usually done when a baby is 6?12 months old. ??? Involves correcting the downward curve of the penis, if needed. This allows for normal sexual function. ??? May consist of more than one procedure over time. The reason for repeating the procedure is to maintain the correct location of the urethral opening as the child grows. After surgery, your child will have follow-up visits with the health care provider for a long time.The health care provider will monitor your child for problems that can develop over time, such as trouble urinating, curving of the penis, or tightening of the urethra (urethral stricture). Follow these instructions at home: ??? Give vipb-lpi-ezyncrn and prescription medicines only as told by your child's health care provider. ??? Keep all follow-up visits. This is important. Where to find support ??? Hypospadias and Epispadias Association: www.heainfo.org Where to find more information ??? [employer]: www.urologyhealth.org Contact a health care provider if: ??? You have questions about corrective surgery. ??? Your child has trouble urinating. ??? Your child's urine smells bad or unusual. ??? Your child has a fever. Get help right away if: ??? Your child who is younger than 3 months has a fever of 100.4?F (38?C) or higher. ??? Your child who is 3 months to 3 years old has a temperature of 102.2?F (39?C) or higher. Summary ??? Hypospadias occurs when the opening of the urethra is not in its usual place at the tip of the penis. ??? Children with this condition should not be circumcised as newborns. This is because the foreskin may be needed as part of the corrective surgery for this condition. ??? Surgery is often needed to correct hypospadias and is usually done when a baby is 6?12 months old. ??? There may be no symptoms at all, or your child may need surgery to create a normal urethra and urethral opening near the tip of the penis. This information is not intended to replace advice given to you by your health care provider. Make sure you discuss any questions you have with your health care provider. Document Revised: 03/10/2021 Document Reviewed: 06/23/2020 Monisha Patient Education ? 2023 [employer].[facility] 07-11-2024 NoteThis is a Telehealth Appointment *This visit was conducted via Telehealth with real time interactive synchronized audio and video communication. The patient provided written consent for treatment. The patient understands their rights, the HIPAA risks and that they will be charged accordingly for the services rendered. The patient was seen via telemedicine while they were at: [place] This telemedicinevisit was conducted due to: transport_ Chief Complaint 2 week f/u for postoperative wound infection History of Present Illness Hospital follow-up visit Date of admission: April 15, 2024 Date of discharge: May 01, 2024 Diagnosis: Postop wound infection, lumbar decompression and fusion February 21, 2024, history of prior radiation to lumbar spine, urinary retention, chronic kidney disease Procedures: I&D April 17, 2024 Pertinent cultures: Fluoroquinolone resistant Pseudomonas from the wound Planned antibiotic course: Meropenem through February 24, extended through May 17, 2024 [facility] for UTI, doxycycline at present through July 14 Vascular access: Midline placed April 20, removed States he is doing okay. No back pain. Back is stopped draining. He seems brighter overall. Eating okay. No fever or chills. He has been on doxycycline through July 14. Apparently started for respiratory? Review of Systems Other review of system negative. Physical Exam Vitals & Measurements T: 36.3 ?C (Temporal Artery) HR: 80 (Peripheral) RR: 18 BP: 142/74 HT: 167 cm WT: 86.00 kg WT: 86.00 kg (Dosing) BMI: 30.84 Vital signs okay. No acute distress. Patient nurse states his wound is completely dry with no redness or swelling around it in the lumbar region. No other rashes etc. Additional Vitals No qualifying data available. Assessment/Plan 1. Postoperative wound infection Finish Doxy as scheduled. Recheck with me in about 3 to 4 weeks. Call if any increasing pain redness swelling fever etc. He will be seeing Dr. Burris later in the month. Medical Decision Making Chronic conditions NOT treated during this visit that affected my overall medical decision making: [] Treatment plans discussed but not opted for at this time: [] Prescribed medication that requires intensive monitoring for toxicity: [] I have reviewed the patient?s medication list for medication interactions/contraindications and/or for upcoming procedures: [yes or no] Time Spent with the Patient I have personally spent [] minutes on this date, directly related to today's patient visit, including pre and post visit work, for this date of service. Time listed does not include time spent on separately billable services. Problem List/Past Medical History Ongoing Atrial fibrillation, permanent Wayne's cyst of knee Chronic kidney disease Chronic systolic heart failure Current use of anticoagulants Gout History of gastric ulcer Hypercholesterolemia Hypothyroidism Lymphedema Sleep apnea Historical No qualifying data Procedure/Surgical History History of bilateral knee replacement History of left hip replacement History of lithotripsy Cataract surgery SINUS SURGERY PROCEDURE Rotator cuff surgery Lumbar decompression with fusion (02/21/2024) Lumbar Wound Irrigation (04/17/2024) Medications allopurinol 300 mg oral tablet, 300 mg= 1 tabs, Oral, Daily atorvastatin 40 mg oral tablet, 40 mg= 1 tabs, Oral, HS (at bedtime) bumetanide 1 mg oral tablet, 1 mg= 1 tabs, Oral, Daily Coreg 3.125 mg oral tablet, 3.125 mg= 1 tabs, Oral, BID doxycycline, 100 mg, Oral, BID, end date 07/14/2024 Eliquis 5 mg oral tablet, 5 mg= 1 tabs, Oral, BID eszopiclone 3 mg oral tablet, 3 mg= 1 tabs, Oral, HS (at bedtime), PRN ipratropium-albuterol 0.5 mg-2.5 mg/3 mLinhalation solution, 3 mL, NEB, q6hr, PRN ipratropium-albuterol 0.5 mg-2.5 mg/3 mLinhalation solution, 3 mL, Inhale, TID, end date 07/11/2024 Klor-Con M20 oral tablet, extended release, 20 mEq= 1 tabs, Oral, Daily levothyroxine 150 mcg (0.15 mg) oral tablet, 150 mcg= 1 tabs, Oral, Daily magnesium oxide 400 mg (241.3 mg elemental magnesium) oral tablet, 400 mg= 1 tabs, Oral, Daily oxyCODONE-acetaminophen 5 mg-325 mg oral tablet, 28 EA, 0 Refill(s), TAKE 1 TABLET BY MOUTH EVERY 6HOURS NEEDED FOR PAIN FOR 7 DAYS predniSONE 10 mg oral tablet, 10 mg= 1 tabs, Oral, Daily, end date 07/12/2024 traZODone 50 mg oral tablet, 50 mg= 1 tabs, Oral, HS (at bedtime), PRN Tylenol Extra Strength 500 mg oral tablet, 500 mg= 1 tabs, Oral, TID, PRN Allergies Ambien (Unknown) Indocin (Unknown) fentaNYL (Unknown) penicillin (Unknown) Social History Substance Abuse Denies All Tobacco Former smoker, quit more than 5 years ago Use:. Family History Family history is unknown Immunizations Vaccine Date Status influenza virus vaccine, inactivated 12/17/2022 Recorded influenza virus vaccine, inactivated 12/24/2021 Recorded SARS-CoV-2 (COVID-19) mRNA-1273 bivalent 12/24/2021 Recorded Comments (more content not included)...[facility]04-22-2025 NoteThis is a Telehealth Appointment *This visit was conducted via Telehealth with real time interactive synchronized audio and video communication. The patient provided written consent for treatment. The patient understands their rights, the HIPAA risks and that they will be charged accordingly for the services rendered. The patient was seen via telemedicine while they were at: [place] This telemedicinevisit was conducted due to: transport_ Chief Complaint F/U for Surgical wound dehiscence History of Present Illness Hospital follow-up visit Date of admission: April 15, 2024 Date of discharge: May 01, 2024 Diagnosis: Postop wound infection, lumbar decompression and fusion February 21, 2024, history of prior radiation to lumbar spine, urinary retention, chronic kidney disease Procedures: I&D April 17, 2024 Pertinent cultures: Fluoroquinolone resistant Pseudomonas from the wound Planned antibiotic course: Meropenem through April 30, extended through May 17, 2024 Vascular access: Midline placed April 20, removed Since last visit with ID service on June 07, he was diagnosed with a UTI. Initially treated with cephalexin and then subsequently levofloxacin. Completed antibiotics apparently on June 18. Back drainage is stopped. He states he is walking up to 100 feet. Eating okay. Still has Chou catheter in. Has been seeing urology for catheter exchanges. No fever or chills. Breathing is okay. Denies chest pain. States bowel movements been okay. Review of Systems Other review of systems negative. Physical Exam Vitals & Measurements T: 36.5 ?C (Temporal Artery) HR: 78 (Peripheral) RR: 18 BP: 125/70 SpO2: 97% WT: 85.41 kg WT: 85.41 kg (Dosing) Vital signs okay. He looks comfortable. Skin somewhat pale. Sclera conjunctiva normal. No respiratory distress. Denied abdominal discomfort. Back wound with somewhat macerated appearing skin but nurse visit reports there is no drainage and wound is intact. Mild pink itchiness around the lumbar region. He is sitting in a wheelchair. Chou catheter is in. Culture of June 12 showing Pseudomonas and Proteus fluoroquinolone susceptible. Additional Vitals No qualifying data available. Assessment/Plan 1. Postoperative wound infection Wound appears to be okay. Acute phase reactants remain high but better than the 14th. Recommended follow-up with Dr. Doyle. Will recheck here in about 2 weeks. Recheck lab again next week. He did have Levaquin for UTI which may have helped acute phase reactants. The Pseudomonas isolated from thewound was resistant to fluoroquinolones. 2. Chronic kidney disease Suggested nephrology consult. Medical Decision Making Chronic conditions NOT treated during this visit that affected my overall medical decision making: [] Treatment plans discussed but not opted for at this time: [] Prescribed medication that requires intensive monitoring for toxicity: [] I have reviewed the patient?s medication list for medication interactions/contraindications and/or for upcoming procedures: [yes or no] Time Spent with the Patient I have personally spent [] minutes on this date, directly related to today's patient visit, including pre and post visit work, for this date of service. Time listed does not include time spent on separately billable services. Problem List/Past Medical History Ongoing Atrial fibrillation, permanent Wayne's cyst of knee Chronic kidney disease Chronic systolic heart failure Current use of anticoagulants Gout History of gastric ulcer Hypercholesterolemia Hypothyroidism Lymphedema Sleep apnea Historical No qualifying data Procedure/Surgical History History of bilateral knee replacement History of left hip replacement History of lithotripsy Cataract surgery SINUS SURGERY PROCEDURE Rotator cuff surgery Lumbar decompression with fusion (02/21/2024) Lumbar Wound Irrigation (04/17/2024) Medications allopurinol 300 mg oral tablet, 300 mg= 1 tabs, Oral, Daily atorvastatin 40 mg oral tablet, 40 mg= 1 tabs, Oral, HS (at bedtime) bumetanide 1 mg oral tablet, 1 mg= 1 tabs, Oral, Daily Coreg 3.125 mg oral tablet, 3.125 mg= 1 tabs, Oral, BID Eliquis 5 mg oral tablet, 5 mg= 1 tabs, Oral, BID eszopiclone 3 mg oral tablet, 3 mg= 1 tabs, Oral, HS (at bedtime), PRN Klor-Con M20 oral tablet, extended release, 20 mEq= 1 tabs, Oral, Daily levothyroxine 150 mcg (0.15 mg) oral tablet, 150 mcg= 1 tabs, Oral, Daily magnesium oxide 400 mg (241.3 mg elemental magnesium) oral tablet, 400 mg= 1 tabs, Oral, Daily oxyCODONE-acetaminophen 5 mg-325 mg oral tablet, 28 EA, 0 Refill(s), TAKE 1 TABLET BY MOUTH EVERY 6HOURS NEEDED FOR PAIN FOR 7 DAYS traZODone 50 mg oral tablet, 50 mg= 1 tabs, Oral, HS (at bedtime), PRN Tylenol Extra Strength 500 mg oral tablet, 500 mg= 1 tabs, Oral, TID, PRN Allergies Ambien (Unknown) Indocin (Unknown) fentaNYL (Unknown) penicillin (Unknown) Social History Substance Abuse Denies All (more content not included)...[facility]03-29-2025 Note Patient Education Urology Acute Urinary Retention, Male Acute urinary retention is a condition in which a person is unable to pass urine or can only pass alittle urine. This condition can happen suddenly and last for a short time. If left untreated, it can become long-term (chronic) and result in kidney damage or other serious complications. What are the causes? This condition may be caused by: ??? Obstruction or narrowing of the tube that drains the bladder (urethra). This may be caused by surgery, problems with nearby organs, or injury to the bladder or urethra. ??? Problems with the nerves in the bladder. ??? Tumors in the area of the pelvis, bladder, or urethra. ??? Certain medicines. ??? Bladder or urinary tract infection. ??? Constipation. What increases the risk? This condition is more likely to develop in older men. As men age, their prostate may become largerand may start to press or squeeze on the bladder or the urethra. Other chronic health conditions can increase the risk of acute urinary retention. These include: ??? Diseases such as multiple sclerosis. ??? Spinal cord injuries. ??? Diabetes. ??? Degenerative cognitive conditions, such as delirium or dementia. ??? Psychological conditions. A man may hold his urine due to trauma or because he does not want touse the bathroom. What are the signs or symptoms? Symptoms of this condition include: ??? Trouble urinating. ??? Pain in the lower abdomen. How is this diagnosed? This condition is diagnosed based on a physical exam and your medical history. You may also have other tests, including: ??? An ultrasound of the bladder or kidneys or both. ??? Blood tests. ??? A urine analysis. ??? Additional tests may be needed, such as a CT scan, MRI, and kidney or bladder function tests. How is this treated? Treatment for this condition may include: ??? Medicines. ??? Placing a thin, sterile tube (catheter) into the bladder to drain urine out of the body. This is called an indwelling urinary catheter. After it is inserted, the catheter is held in place with a small balloon that is filled with sterile water. Urine drains from the catheter into a collection bag outside of the body. ??? Behavioral therapy. ??? Treatment for other conditions. If needed, you may be treated in the hospital for kidney function problems or to manage other complications. Follow these instructions at home: Medicines ??? Take [id number]-ccsselm and prescription medicines only as told by your health care provider. Avoid certain medicines, such as decongestants, antihistamines, and some prescription medicines. Do nottake any medicine unless your health care provider approves. ??? If you were prescribed an antibiotic medicine, take it as told by your health care provider. Donot stop using the antibiotic even if you start to feel better. General instructions ??? Do not use any products that contain nicotine or tobacco. These products include cigarettes, chewing tobacco, and vaping devices, such as e-cigarettes. If you need help quitting, ask your health care provider. ??? Drink enough fluid to keep your urine pale yellow. ??? If you have an indwelling urinary catheter, follow the instructions from your health care provider. ??? Monitor any changes in your symptoms. Tell your health care provider about any changes. ??? If instructed, monitor your blood pressure at home. Report changes as told by your health care provider. ??? Keep all follow-up visits. This is important. Contact a health care provider if: ??? You have uncomfortable bladder contractions that you cannot control (spasms). ??? You leak urine with the spasms. Get help right away if: ??? You have chills or a fever. ??? You have blood in your urine. ??? You have a catheter and the following happens: ? Your catheter stops draining urine. ? Your catheter falls out. Summary ??? Acute urinary retention is a condition in which a person is unable to pass urine or can only pass a little urine. If left untreated, this condition can result in kidney damage or other serious complications. ??? An enlarged prostate may cause this condition. As men age, their prostate gland may become larger and may press or squeeze on the bladder or the urethra. ??? Treatment for this condition may include medicines and placement of an indwelling urinary catheter. ??? Monitor any changes in your symptoms. Tell your health care provider about any changes. This information is not intended to replace advice given to you by your health care provider. Make sure you discuss any questions you have with your health care provider. Document Revised: 11/12/2020 Document Reviewed: 11/12/2020 Monisha Patient Education ? 2023 [employer] 05-10-2024 NoteThis is a Telehealth Appointment *This visit was conducted via Telehealth with real time interactive synchronized audio and video communication. The patient provided written consent for treatment. The patient understands their rights, the HIPAA risks and that they will be charged accordingly for the services rendered. The patient was seen via telemedicine while they were at: [place] This telemedicine visit was conducted due to: transporation_ Chief Complaint hosp f/u dehiscence of surgical wound History of Present Illness 83-year-old male being seen today hospital follow-up for dehisced surgical wound. He had lumbar decompression with fusion February 20. He has had prior ablations prior to the surgery. 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 He states it was a very long name for the andre [1] he had surgery at [facility] in [place].Postoperatively gained a lot of fluid weight. Also has catheter for urinary retention. Has chronic lymphedema uses pumps at home. Admitted to [place] had MRI that showed fluid collection. History ofA-fib. Surgery was not done there due to need for cardiology services. Transferred to [facility] where he connected with cardiology. Actually went to the OR on 04/17/2024 for 8 weeks status post lumbar decompression and noninstrumented fusion with postoperative fluid collection and wound dehisced. Had I&D. Culture positive for Pseudomonas resistant to fluoroquinolones. Sent out on meropenem with midline for 2 weeks. Did have lab work completed on 04/30/2024. White blood cells looked okay hemoglobin okay sed rate and CRP elevated however improved from previous. Should have completed treatment on 05/03/2024. Here today to reassess. Overall, patient is doing well. Nurse in room reports wound is healing well. There is some drainageon the dressing however mild. He also has an excoriated area near wound from sitting. They are watching. But overall wound is improving patient reports back pain is improved no fevers no chills no nausea, vomiting or diarrhea. No complaints with midline. No chest pain or heart palpitations. Patient is not lightheaded or dizzy. No shortness of breath orcough. No complaints on urination. Plan is to stay there until wound is completely healed. He continues physical therapy without complications. Review of Systems All systems have been reviewed and are negative other than those listed in the HPI Physical Exam Vitals & Measurements T: 36.8 ?C (Temporal Artery) HR: 96 (Peripheral) RR: 22 BP: 130/62 SpO2: 96% HT: 167 cm WT: 67.4 kg WT: 67.4 kg (Dosing) BMI: 24.17 Vitals reviewed. Patient in no apparent distress. No audible wheezes heard during exam. Patient appears normal in color. Hard of hearing. Midline left upper arm site looks okay. To visualize surgicalsite lower back incision appears to be healing. Does appear to have some dried drainage at the distal portion of wound. Right side of wound noted to have some skin excoriation reddened. Patient answers questions appropriately. 04/17/2024 back tissue culture positive for Pseudomonas aeruginosa relisted to fluoroquinolones Additional Vitals BP Position/Location: Sitting, Left arm Assessment/Plan 1. Surgical wound dehiscence Plan: Labs reviewed. Patient continues to have some drainage. Inflammation markers improved however stillelevated. At this time would like to extend out meropenem an additional week. He has been off of antibiotics for 1 week. Will go out 1 more. Midline was placed on 04/20/2024. If we have to extend the Sagar longer may need to consider replacing midline. At this time I would like lab work completed on05/11/2024. Unfortunately while patient was on medication they did not do any chemistry studies we need to assess his kidneys. For now we will keep him on suggested dosing based off the community referral form for when he was admitted meropenem 1 g IV every 12 hours. May need to adjust this pending on what his lab work looks like. Would like lab work completed next . This case was discussed with Dr. Pompa who agrees with plan. Return to clinic a week to 10 days. Instructions to patient: If condition worsens in any way or you develop any signs or symptoms of infection please notify theoffice right away. Call for questions. Medical Decision Making Chronic conditions NOT treated during this visit that affected my overall medical decision making: [] Treatment plans discussed but not opted for at this time: [] Prescribed medication that requires intensive monitoring for toxicity: [] Meropenem I have reviewed the patient?s medication list for medication interactions/contraindications and/or for upcoming procedures: [Yes] Time Spent with the Patient I have personally spent [32] minutes on this date, directly related to today's patient visit, including pre and post visit work, for this date of service. Time listed does not include time spent on se (more content not included)... [facility]02-20-2025 History of Present illness Narrative* Partha Gabriel, DPM - 04/26/2024 4:32 PM EST Tavo Byrd Jadynroel : 1940 Fdc: [facility] PCP:dr. aguirre Date last seen: 04/15/2024 in hosp Pt id by name PAST MEDICAL HISTORY Diagnosis Date Generalized osteoarthrosis, unspecified site Gout Overweight and obesity PMH - PAST MEDICAL HISTORY OF 2000 Myxopapillary ependymoma PMH - PAST MEDICAL HISTORY OF Uric acid stones PMH - PAST MEDICAL HISTORY OF Pelvic fracture PMH - PAST MEDICAL HISTORY OF Edema of the right leg after a DVT Pure hypercholesterolemia Unspecified hypothyroidism 1979 For many years Current Outpatient Medications Medication Sig SYNTHROID 150 MCG TABLET Take one(1) tablet daily. ALLOPURINOL 300 MG TABLET Take one(1) tablet daily. HYTRIN 2 MG CAPSULE Take one(1) capsule daily. BUMEX 2 MG TABLET Take one(1) tablet daily. CELEBREX 200 MG CAPSULE Take one(1) capsule daily. LEXAPRO 5 MG TABLET take one half daily VICODIN 5/500 TABLET as needed K-DUR 20 MEQ TABLET SA Take one(1) tablet daily. No current facility-administered medications for this visit. ALLERGIES Allergen Reactions Penicillins Mental Status Change Pt seen for initial visit in room today. Signed consent form provided. Pt agreed to visit Subjective: Tavo is a 83 year old male who is not diabetic. Presents today for evaluation and treatment of painful digital nail deformity as well as generalized foot care . Patient has been unableto provide self nail care due to the severe nature of deformity which causes pain and pressure and limits the patients abilty to wear shoe gear without pain. Patient is advised not to attempt self care. Class B Findings: Decrease or absence of hair growth, Pigmentary changes, Skin texture (thin, shiny), and Nail changes (thickening) Objective: Each digital nail on the right 1 and the left 1 is elongated, thickened, ridged, lysing with friable subungual debris which, after debridement from the underlying nail bed, reveals a characteristic fungal/yeast/mold odor and consistency. There is no surrounding cellulitis, deep incurvation, or evidence of bacterial infection. Class findings include diminished pedal pulses, lack of digital pedal hair growth, the above noted nail changes, and lower leg edema bilaterally. Lower Extremity Edema: yes: b/l Assessment: Symptomatic onychomycosis digital nails toes 1 Rt 1 Lt. Examination of individual toenails: R5 is normal. R4 is normal. R3 is normal. R2 is normal. R1 is brittle, discolored, dystrophic, elongated, painful, yellow with subungual debris. L1 is brittle, discolored, dystrophic, elongated, painful, yellow, with subungual debris. L2 is normal. L3 is normal. L4 is normal. L5 is normal. Plan: The offending nail margins were mechanically and electrically debrided to the level of normalunderlying nail bed with good relief obtained as evidenced by pain free palpation of the digits. The patient will be followed to maintain the length and thickness of their nails as best as possible. Patient relates painful tx. We will see him back on an as needed basis or sooner should problems arise. Patient was recommended walking, exercise Recommended: No Anti Fungal Pain due to onychomycosis of toenail of left foot (primary encounter diagnosis) Pain due to onychomycosis of toenail of right foot Localized edema Decreased pedal pulses [facility] (current) use of anticoagulants Partha Gabriel DPM documented in this encounter[facility] Instructions* Patient Instructions* Partha Gabriel DPM - 04/26/2024 4:32 PM EST Pt not to attempt self care due to high risk. documented in this encounterUniversity [facility]02-14-2025 NoteAdmission Information Patient: Tavo Wallis : 1940 Date of Admission: 04/15/2024 03:52:56 Date of Discharge: 04/20/24 Code Status: Full ResuscitationFull Resuscitation PCP: Tavo Mcintyre DO Consult: Celena HARGROVE, Frankie Hernandez; Moises TIDWELL, Crystal Byrd; Aletha TIDWELL, Tye Barrera; Lalo LECHUGA, Gustabo Sharpe; [facility], [facility] Course : This is a 83 Years old Male with past medical history of heart failure with reduced ejection fraction, permanent A-fib, chronic kidney disease stage III AAA, hypothyroidism, chronic back pain with recent surgery about 2 months ago who was transferred from [facility] for wound dehiscence. The reason why patient was transferred was because of his extensive cardiac history and anesthesia at [facility] did not feel comfortable putting him under anesthesia without cardiology clearance. Patient underwent incision and drainage on 04/17/2024. He was admitted postoperatively for hemodynamic monitoring and was started on IV vancomycin and meropenem. Postoperatively, he became hypotensivewith low-grade fevers. Infectious workup was sent and patient's chest x-ray revealed bilateral infil trates. Subsequently, patient's culture from OR revealed Pseudomonas that is resistant to quinolone. Patient was evaluated by infectious disease. Vancomycin was discontinued and patient will be discharged on IV meropenem for 2 weeks. Patient will need to follow-up with PCP in 1 to 2 weeks along with orthopedic and infectious disease in 1 to 2 weeks. Patient educated on worrisome signs and symptoms that should prompt him to come to ED for evaluation. Assessment and plan: Hypotension sec to hypovolemia improved. stable. has chronically low BP that is very sensitive to opioids but usually recovers w/oany intervention Bilateral lower lobe pneumonia Infectious workup sent for hypotension and low-grade fever for suspected underlying infectious etiology. X-ray consistent with bilateral basilar infiltrates. Will d/c on meropenem Lumbar spine surgical wound dehiscence status post incision and drainage/infected seroma Wound VAC in place. Cultures positive for Pseudomonas. D/c on IV meropenem for 2 weeks. Normocytic anemia Received 1 unit of packed red blood cells. Hemoglobin istable since then. Monitor. Heart failure with reduced ejection fraction Closely monitor volume status. Hold Bumex and Coreg. Permanent A-fib ok to resume eliquis. Chronic kidney stage IIIa Serum creatinine at baseline. Monitor closely. Hypothyroidism Continue with levothyroxine Discussion: I discussed with the patient, family, patient's nurse, and care transition about the patient's plan of care. I reviewed other provider notes. Discharge Location: Longterm Facility Discharge Time Spent with Patient: over 30 minutes spent on patients assessment, formulation of treatment plan and discharge planning. Medications Medications That Have Not Changed Other Medications acetaminophen (Tylenol Extra Strength 500 mg oral tablet) 2 Tabs Oral (given by mouth) 3 times a day as needed as needed for pain. Last Dose: allopurinol (allopurinol 300 mg oral tablet) 1 Tabs Oral (given by mouth) every day. Last Dose: apixaban (Eliquis 5 mg oral tablet) 1 Tabs Oral (given by mouth) 2 times a day. Last Dose: atorvastatin (atorvastatin 40 mg oral tablet) 1 Tabs Oral (given by mouth) once a day (at bedtime). Last Dose: bumetanide (bumetanide 1 mg oral tablet) 1 Tabs Oral (given by mouth) every day. Last Dose: carvedilol (carvedilol 6.25 mg oral tablet) 1 Tabs Oral (given by mouth) 2 times a day. Last Dose: eszopiclone (eszopiclone 3 mg oral tablet) 1 Tabs Oral (given by mouth) once a day (at bedtime) as needed as needed for insomnia. Last Dose: levothyroxine (levothyroxine 150 mcg (0.15 mg) oral tablet) 1 Tabs Oral (given by mouth) every day. Last Dose: magnesium oxide (magnesium oxide 400 mg (241.3 mg elemental magnesium) oral tablet) 1 Tabs Oral (given by mouth) every day. Last Dose: potassium chloride (Klor-Con M20 oral tablet, extended release) 1 Tabs Oral (given by mouth) every day. Last Dose: traZODone (traZODone 50 mg oral tablet) 1 Tabs Oral (given by mouth) once a day (at bedtime) as needed insomnia. Last Dose: Patient Discharge Condition stable Discharge Disposition SNF Objective Physical Exam General: Alert oriented x3, patient appears in no acute cardiorespiratory distress. Lungs: Clear to auscultation, no crepitations or wheeze. Heart: S1-S2 is normal. No rubs or gallops. Abdomen: Soft, non-tender, non-distended, normal bowel sounds Neurologic: Awake, alert, and oriented X3, patient does not have any focal deficits. Psychiatric: Calm (more content not included)...[facility] 04-17-2024 NoteOperative Report DATE OF PROCEDURE: 04/17/2024 PREOPERATIVE DIAGNOSES: 1. 8-weeks status post lumbar decompression and noninstrumented fusion with postoperative fluid collection and wound dehiscence POSTOPERATIVE DIAGNOSES: 1. 8-weeks status post lumbar decompression and noninstrumented fusion with postoperative fluid collection and wound dehiscence OPERATION PERFORMED: 1. Lumbar I&D with wound closure SURGEON: Randi Burris MD COUNT TEAM CLERK: ALEXANDREA Corcoran PA-C assisted throughout the procedure with positioning, draping, retraction, wound closure and dressing application. ANESTHESIA: General. INDICATIONS: This is a 83-year-old male who is OPERATIVE PROCEDURE: The patient was taken to the operating room by the Anesthesiology Service and had satisfactory general anesthesia. Patient on preoperative antibiotics. Venous thromboembolic prophylaxis was performed with sequential devices. The patient was then positioned prone on a standard OSI frame with the abdomen hanging free and all bony prominences well padded. The low back was then prepped and draped in its entirety in the usual sterile fashion. Before incision, a formal time-out was taken per protocol. We then opened up the incision from proximal to distal. We gained access to the epidural space. Patient had a small fluid collection which was evacuated. Fluid was more consistent with a seroma. We then explored his wound, no obvious signs of infection. Lumbar swabs were collected and sent for culture.Excisional debridement was then performed. Blunt dissection with a Leksell was used to remove the necrotic tissue from muscle to fascia and down to and excluding bone within the wound margins. Satisfied with this, we then achieved hemostasis. We then copiously irrigated the wound with Irrisept. The wound was then closed in layer with interrupted 1 and 2-0 Vicryl sutures and dusted with 2 gvancomycin powder. An ethilon baseball stitch was used to close skin. A dry sterile dressing was applied. The patient was then returned to the hospital bed, extubated, and taken to the recovery room in stable condition. COMPLICATIONS: None. SPECIMENS: Lumbar swab ESTIMATED BLOOD LOSS: 15 mL. POSTOPERATIVE CARE: The patient will be recovered in PACU and then the regular nursing floor. ID will be consulted. Once the drainage is low and pain is under control, patient will be discharged backto SNF per clinical indication. Patient will need a follow up in 2-3 weeks for suture removal. RANDI BURRIS M.D. Electronically signed by Randi Burris MD 04/17/24 15:05 [facility]02-09-2025 NoteChief Complaint Wound dehiscence Reason for Consultation Lumbar wound dehiscence History of Present Illness The patient is a 83-year-old male who is status post lumbar decompression and noninstrumented fusion done 02/20/25 at [facility] with Dr. Man. He was admitted to [facility] on Tuesday from office for lumbar I&D due to wound drainage and postoperative fluid collection on MRI. Anesthesia cancelled surgery due to LE swelling, elevated BNP and recent Echo in Feb, no cardiology on staff. He was transferred to [facility] yesterday for surgical clearance. c/o back pain but controlled with taking the Percocet. C/o left anterior thigh pain. Denies numbness/tingling. Chou in place. Review of Systems Constitutional: No fevers, chills Respiratory: No shortness of breath, cough Cardiovascular: No chest pain, palpitations Gastrointestinal: No nausea, vomiting Genitourinary: No dysuria (+) chou Musculoskeletal: (+) back pain Neurologic: No numbness/tingling, h/a Integumentary: (+) wound dehiscence, drainage Psychiatric: No anxiety, depression Physical Exam Vitals & Measurements T: 36.7 ?C (Oral) TMIN: 36.7 ?C (Oral) TMAX: 37 ?C (Oral) HR: 60 (Peripheral) RR: 18 BP: 109/62 SpO2: 98% HT: 167 cm WT: 81.6 kg (Dosing) WT: 81.6 kg BMI: 29.26 General: Alert and oriented, well nourished, no acute distress. Head: Atraumatic, normocephalic Lungs: No respiratory distress. CTA bilaterally, no wheezes Heart: RRR, no murmur Abdomen: Soft, non-tender, non-distended, normal bowel sounds Musculoskeletal: 5/5 bilateral pedal push/pull - weak with left TA(chronic) Skin: wound dehiscence with wound drainage, large area of surrounding erythema Neurologic: Awake, alert, and oriented X3, sensory intact LE Psychiatric: Cooperative, appropriate mood and affect Additional Vitals No qualifying data available. Assessment/Plan 1. Atrial fibrillation, permanent 2. Current use of anticoagulants 3. Lymphedema 4. Chronic systolic heart failure 8-weeks status post lumbar decompression and noninstrumented fusion with postoperative fluid collection and wound dehiscence Cardiology consulted for clearance -acceptable risk Hold blood thinners Possible OR intervention Tuesday pending schedule - hopeful for 6 am Tuesday, will check with OR schedule Problem List/Past Medical History Ongoing Atrial fibrillation, permanent Chronic kidney disease Chronic systolic heart failure Current use of anticoagulants Hypercholesterolemia Lymphedema Historical No qualifying data Procedure/Surgical History Lumbar decompression with fusion (02/2024) Medications Inpatient acetaminophen, 650 mg, Oral, q6hr, PRN acetaminophen, 650 mg, Oral, q6hr, PRN allopurinol, 300 mg, Oral, Daily atorvastatin, 40 mg, Oral, HS (at bedtime) bumetanide, 1 mg, Oral, Daily carvedilol, 6.25 mg, Oral, BID levothyroxine, 150 mcg, Oral, Daily meropenem + Sodium Chloride 0.9% intravenous solution 100 mL + sterile water 40 mL naloxone, 0.4 mg= 1 mL, IV Push, q2min, PRN Normal Saline Flush 0.9% injectable solution, 10 mL, IV Push, As Indicated, PRN Normal Saline Flush 0.9% injectable solution, 10 mL, IV Push, BID Percocet 5/325 oral tablet, 1 tabs, Oral, q6hr, PRN vancomycin Home allopurinol 300 mg oral tablet, 300 mg= 1 tabs, Oral, Daily atorvastatin 40 mg oral tablet, 40 mg= 1 tabs, Oral, HS (at bedtime) bumetanide 1 mg oral tablet, 1 mg= 1 tabs, Oral, Daily carvedilol 6.25 mg oral tablet, 6.25 mg= 1 tabs, Oral, BID Eliquis 5 mg oral tablet, 5 mg= 1 tabs, Oral, BID eszopiclone 3 mg oral tablet, 3 mg= 1 tabs, Oral, HS (at bedtime), PRN Klor-Con M20 oral tablet, extended release, 20 mEq= 1 tabs, Oral, Daily levothyroxine 150 mcg (0.15 mg) oral tablet, 150 mcg= 1 tabs, Oral, Daily magnesium oxide 400 mg (241.3 mg elemental magnesium) oral tablet, 400 mg= 1 tabs, Oral, Daily traZODone 50 mg oral tablet, 50 mg= 1 tabs, Oral, HS (at bedtime), PRN Tylenol Extra Strength 500 mg oral tablet, 1000 mg= 2 tabs, Oral, TID, PRN Allergies Ambien (Unknown) Indocin (Unknown) fentaNYL (Unknown) penicillin (Unknown) Social History Substance Abuse Denies All Tobacco Former smoker, quit more than 5 years ago Use:. Family History Family history is unknown Lab Results Microbiology - Current Encounter No qualifying data available. Electronically signed by Lalo LECHUGA Gustabo Walkerne 04/15/24 17:04 EST Electronically signed by [facility] TIDWELL, Ranid Mesa 04/17/2024 14:49 [facility] 04-15-2024 NotePatient seen and examined in AM. Chart reviewed and discussed plan of care with patient and his daughter at bedside. Notably patient had lumbar spine surgery done with Dr Burris, due to concerns for wound dehiscence he was transferred to inpatient hospital for debridement. Patient was transferredhere from [facility] as there was some concern for decompensated CHF, no cardiology service was present at [place] patient states he follows with cardiology?[facility] for appropriate clearance and restratification prior to orthopedic surgery. Near his home in [place]. He did receive appropriate cardiac clearance prior to initial orthopedic surgery intervention in mid February. He admits to a history of congestive heart failure with mildly reduced ejection fraction, ordinarily uses a wheelchair for short distances?limited due to orthopedic procedures. Prior to this he lived independently, ambulated using a cane. Denies any chest pain or shortness of breath, currently states his breathing feels at his baseline. Troponin within normal limits x 1, no active chest pain or shortness of breath to suggest ACS or decompensated CHF at this time. Advised cardiac risk index score of 1 demonstrating 6.0% chance risk of major cardiac event. Cardiology clearance/restratification was requested per orthopedic surgery. Will seek cardiology consultation, appreciate recommendations. Continue present antibiotic therapy, follow cultures. Stop IV fluids, and resume home oral Bumex. I discussed home medication list with patient's daughter at bedside, resumed appropriate medications as able. Hold Eliquis for now, resume once okay with orthopedic surgery Juan Farr DO Electronically signed by Juan Farr DO 04/15/24 11:06 EST *RCRI score of 1 Electronically signed by YordanJuan camara DO 04/15/24 11:09 [facility]02-09-2025 NoteAssessment/Plan Brief Hospital Course Summary: This is a 83 Years old Male with pertinent history of back pain along with multiple medical problems brought in from Home with wound to his. Patient is admitted for wound dehiscence. Assessment: _ # Lumbar neurosurgical wound dehiscence Plan: _ Med rec pending to be reviewed by pharmacy needs to be done by a.. hospital Full workup ordered needs to also be followed up by a.m. heart In the meantime we will be initiating antibiotics broad-spectrum and neurosurgery has been notifiedthat the patient is in our hospital Dr. Saint Orourke. Through [facility]. EKG performed patient has a known history of A-fib. Discussion: I discussed with the patient, family, patient's nurse, and care transition about the patient's plan of care. I reviewed other provider notes. Anticipated Discharge Location: Home Medical necessity for ongoing hospitalization: ongoing workup for active diagnosis Home Medication Clause: has been reviewed by pharmacy, Myself, and/or based on medication script history hence initiating medications as deemed appropriate in this acute setting. However, a full confirmation with the patient's pharmacy is warranted by the a.m. receiving hospitalist/pharmacist sincesome medications can be held in the acute setting or pending confirmation with the patient's pharmac y in a.m. Code Status: Full ResuscitationFull Resuscitation History of Present Illness 83M presented as a transfer from [facility] for cardiac clearance the patient has been operated on by Dr. Saint Orourke initially had surgery on L2-L5 several weeks ago went to rehab after that the patient back in the hospital for urinary tract infection the patient after that also went back to rehab but came back due to a wound dehiscence. MRI was done which revealed fluid collection in thesurgical area. At the time the patient was fluid overloaded at [facility] currently he is not in our hospital the patient states that his left lower extremity is chronically erythematous which has beenongoing for the past several years likely from venous congestion. The patient has ejection [id number]% currently he is not on room air. Neurosurgery wants cardiology cleared the patient since there is in anticipation of operation on Tuesday or Tuesday. The pt otherwise denies any chest pain, shortness of breath, coughing, N/V or diarrhea , no abdominal pain, no melena/hematochezia/hematemesis. Pthas no syncope or presyncope. The pt has no other alleviating or aggravating factors for the current presentation and no other associated signs and symptoms at the current time. Review of Systems 14 Point ROS negative except what is indicated above in HPI. Objective AOx3 Skin: Dry, Warm, and intact. Head: Normocephalic and atraumatic. Eyes: PERRLA/EOMI. ENT: Atraumatic. Cardio: RRR, no m/r/g. Res: CTA bilaterally on a/p chest. no r/r/w. Abdomen: +BS, Soft, NT/ND. No r/g. Extremities: No edema/open wounds. Neurological Exam: Equal b/l U/LE. No Focal neurological deficits. CN II-XII grossly intact. Wound dehiscence in the back from postsurgical intervention Vitals & Measurements T: 36.8 ?C (Oral) HR: 68 (Peripheral) RR: 18 BP: 98/60 SpO2: 95% HT: 167 cm WT: 81.6 kg WT: 81.6 kg(Dosing) BMI: 29.26 Additional Vitals No qualifying data available. Problem List/Past Medical History Ongoing No qualifying data Historical No qualifying data Degree of Malnutrition: No qualifying data available. Medications Inpatient acetaminophen, 650 mg, Oral, q6hr, PRN acetaminophen, 650 mg, Oral, q6hr, PRN Lactated Ringers Injection intravenous solution 1,000 mL, 1000 mL, IV meropenem, 2 g, IV Piggyback, q8hr naloxone, 0.4 mg= 1 mL, IV Push, q2min, PRN Normal Saline Flush 0.9% injectable solution, 10 mL, IV Push, As Indicated, PRN Normal Saline Flush 0.9% injectable solution, 10 mL, IV Push, BID Home No active home medications Allergies Ambien (Unknown) Indocin (Unknown) fentaNYL (Unknown) penicillin (Unknown) Social History Tobacco Former smoker, quit more than 5 years ago Use:. Lab Results Labs (Last four charted values) WBC 8.7 (APR 15) Hgb L 8.9 (APR 15) Hct L 26.7 (APR 15) Plt 232 (APR 15) Microbiology - Current Encounter No qualifying data available. Electronically signed by Moises TIDWELL, Crystal Byrd 04/15/24 06:21 [facility] 03-14-2024 Progress note Author Michele Knight [facility] HospitalNote Date/TimeJanuary 2024 4:[place] [address] Hospitalist Progress Note Signed Patient: Tavo Wallis Jr MR# : [id number] : 1940 Acct:[id number] Age/Sex: 83 / M Adm Date: 5 Loc: Room: [address] [place] [address] Type: ADM IN Attending Dr: Michele Knight MD Copies to: ~ Date of Service: 03/14/2024 Subjective Subjective Narrative: No acute events overnight, elevated creatinine this morning 2.39 up from 2.27, over 300 cc on postvoid residual, Chou catheter replaced. Exam Physical Exam Vital Signs: Temp Pulse Resp BP Pulse Ox O2 Del Method 97.8 F 65 19 112/71 92 L Room Air 03/13/24 20:10 03/14/24 04:15 03/14/24 04:15 03/14/24 04:15 03/14/24 04:15 03/14/24 06:26 Narrative: General: cooperative and comfortable Orientation: alert, awake and oriented x3 Head: normal to inspection Neck: normal visual inspection Cardio: no JVD, regular rate, regular rhythm Chest palpation & inspection: normal inspection of the chest Resp Effort & Inspection: normal respiratory effort Abd: soft, non-tender, non-distended. Extremities: Warm well perfused, no edema Objective Lab Results 03/10/24 10:00 03/14/24 05:34 Microbiology Results Microbiology 03/10/24 10:18 Blood - Left Hand Blood Culture - Preliminary No Growth 3 Days 03/10/24 10:00 Blood - Left Antecubital Blood Culture - Preliminary No Growth 3 Days Meds Allergies and Active Meds Allergies fentanyl Allergy (Unknown, Verified 03/10/24 10:11) Dizziness, loopy indomethacin (From Indocin) Allergy (Unknown, Verified 03/10/24 10:11) Dizziness zolpidem (From Ambien) Allergy (Unknown, Verified 03/10/24 10:11) Confusion, memory loss Penicillins Allergy (Verified 03/10/24 10:11) Weakness Active Meds: Active Medications Generic Name Dose Route Start Last Admin Trade Name Freq PRN Reason Stop Dose Admin Acetaminophen 500 mg 03/10/24 21:00 03/13/24 21:26 Acetaminophen 500 Mg Tablet PO 03/10/25 20:59 500 mg BID ANIBAL Administration Allopurinol 300 mg 03/11/24 09:00 03/13/24 08:02 Allopurinol 300 Mg Tablet PO 03/11/25 08:59 300 mg DAILY ANIBAL Administration Apixaban 2.5 mg 03/13/24 21:00 03/13/24 21:27 Apixaban 2.5 Mg Tablet PO 03/13/25 20:59 2.5 mg BID ANIBAL Administration Atorvastatin Calcium 40 mg 03/11/24 09:00 03/13/24 08:02 Atorvastatin 40 Mg Tablet PO 03/11/25 08:59 40 mg DAILY ANIBAL Administration Bumetanide 1 mg 03/11/24 09:25 03/13/24 21:26 Bumetanide 1 Mg Tablet PO 03/11/25 09:24 1 mg BID ANIBAL Administration Carvedilol 3.125 mg 03/10/24 21:00 03/13/24 21:27 Carvedilol 3.125 Mg Tablet PO 03/10/25 20:59 3.125 mg BID ANIBAL Administration Clindamycin HCl 300 mg 03/10/24 14:00 03/13/24 22:36 Clindamycin 300 Mg Capsule PO Not Given QID ANIBAL Levothyroxine Sodium 150 mcg 03/11/24 06:30 03/14/24 07:23 Levothyroxine 150 Mcg Tablet PO 03/11/25 06:29 150 mcg DAILY@0630 ANIBAL Administration Eszopiclone 3 Mg 3 mg 03/10/24 22:00 03/13/24 22:37 Tablet PO 03/10/25 21:59 Not Given QHS ANIBAL Oxycodone/Acetaminophen 1 tab 03/10/24 13:54 03/13/24 15:25 Oxycodone/Acetaminophen 5-325 Mg Tablet PO 1 tab Q6HR PRN Administration pain Polyethylene Glycol 17 gm 03/10/24 15:00 03/11/24 12:21 Polyethylene Glycol 3350 17 Gm Powd.Pack PO 03/10/25 14:59 17 gm DAILY PRN Administration Constipation Polyethylene Glycol 17 gm 03/11/24 10:34 Polyethylene Glycol 3350 17 Gm Powd.Pack PO 03/11/25 10:33 DAILY PRN Constipation Senna/Docusate Sodium 2 tab 03/10/24 21:00 03/13/24 21:26 Sennosides/Docusate 8.6-50mg 1 Tab Tablet PO 03/10/25 20:59 2 tab BID ANIBAL Administration Sodium Chloride 0 ml 03/10/24 10:00 Sodium Chloride 0.9 % 10 Ml Syringe IV-PUSH 03/10/25 09:59 PRN PRN Flush Trazodone HCl 50 mg 03/10/24 21:00 03/13/24 21:26 Trazodone 50 Mg Tablet PO 03/10/25 20:59 50 mg QPM ANIBAL Administration A&P - Hospitalist Assessment/Plan (1) LIS (acute kidney injury): Plan 1. Acute urine retention with obstructive uropathy and LIS. - This occurred in the setting of recent spine surgery, pain medications, pain improved and able tomaintain out of bed to chair. - Chou catheter replaced today due to high post-void residual > 300 cc, creatinine increased to2.39 from 2.27. Started flomax, if creatinine trending down on 03/16 will attempt void trial to determine discharge with or without chou catheter. 2. COVID-19 infection. Oxygen saturation 96% on room air. Observe. - likely incidental 3. Metabolic encephalopathy in the setting of the above. Resolved. 4. Recent lumbar decompression surgery 2 weeks ago in [facility]. No complications otherwise. PT OT and pain control. Continue treatment for chronic medical comorbidities with home regimen. Recent lumbar fusion surgery February 2024 A-fib on Eliquis HFrEF Hypothyroid Hypertension BPH Dyslipidemia Gout Sleep apnea Obesity class I Diet: regular Daily Labs: BMP Lines/Drains: PIV DVT ppx: apixiban 5 mg bid for afib Code status: Full Status: inpatient --> Discussed with patient at bedside. All questions answered. In agreement with theabove plan. Michele Knight MD Internal Medicine Hospitalist Attending Physician Documented By: Michele Knight MD 03/14/2452 Signed By: <Electronically signed by Michele Knight MD> 03/14/24 [facility] Work Phone: 1(173) 942-264401-08-2025 [place] [address] Hospitalist Progress Note Signed Patient: Tavo Wallis Jr MR# : [id number] : 1940 Acct:[id number] Age/Sex: 83 / M Adm Date: 5 Loc: 3T Room: [address] [place] [address] Type: ADM IN Attending Dr: Michele Knight MD Copies to: ~ Date of Service: 03/14/2024 Subjective Subjective Narrative: No acute events overnight, elevated creatinine this morning 2.39 up from 2.27, over 300 cc on postvoid residual, Chou catheter replaced. Exam Physical Exam Vital Signs: Temp Pulse Resp BP Pulse Ox O2 Del Method 97.8 F 65 19 112/71 92 L Room Air 03/13/24 20:10 03/14/24 04:15 03/14/24 04:15 03/14/24 04:15 03/14/24 04:15 03/14/24 06:26 Narrative: General: cooperative and comfortable Orientation: alert, awake and oriented x3 Head: normal to inspection Neck: normal visual inspection Cardio: no JVD, regular rate, regular rhythm Chest palpation & inspection: normal inspection of the chest Resp Effort & Inspection: normal respiratory effort Abd: soft, non-tender, non-distended. Extremities: Warm well perfused, no edema Objective Lab Results 03/10/24 10:00 03/14/24 05:34 Microbiology Results Microbiology 03/10/24 10:18 Blood - Left Hand Blood Culture - Preliminary No Growth 3 Days 03/10/24 10:00 Blood - Left Antecubital Blood Culture - Preliminary No Growth 3 Days Meds Allergies and Active Meds Allergies fentanyl Allergy (Unknown, Verified 03/10/24 10:11) Dizziness, loopy indomethacin (From Indocin) Allergy (Unknown, Verified 03/10/24 10:11) Dizziness zolpidem (From Ambien) Allergy (Unknown, Verified 03/10/24 10:11) Confusion, memory loss Penicillins Allergy (Verified 03/10/24 10:11) Weakness Active Meds: Active Medications Generic Name Dose Route Start Last Admin Trade Name Freq PRN Reason Stop Dose Admin Acetaminophen 500 mg 03/10/24 21:00 03/13/24 21:26 Acetaminophen 500 Mg Tablet PO 03/10/25 20:59 500 mg BID ANIBAL Administration Allopurinol 300 mg 03/11/24 09:00 03/13/24 08:02 Allopurinol 300 Mg Tablet PO 03/11/25 08:59 300 mg DAILY ANIBAL Administration Apixaban 2.5 mg 03/13/24 21:00 03/13/24 21:27 Apixaban 2.5 Mg Tablet PO 03/13/25 20:59 2.5 mg BID ANIBAL Administration Atorvastatin Calcium 40 mg 03/11/24 09:00 03/13/24 08:02 Atorvastatin 40 Mg Tablet PO 03/11/25 08:59 40 mg DAILY ANIBAL Administration Bumetanide 1 mg 03/11/24 09:25 03/13/24 21:26 Bumetanide 1 Mg Tablet PO 03/11/25 09:24 1 mg BID ANIBAL Administration Carvedilol 3.125 mg 03/10/24 21:00 03/13/24 21:27 Carvedilol 3.125 Mg Tablet PO 03/10/25 20:59 3.125 mg BID ANIBAL Administration Clindamycin HCl 300 mg 03/10/24 14:00 03/13/24 22:36 Clindamycin 300 Mg Capsule PO Not Given QID ANIBAL Levothyroxine Sodium 150 mcg 03/11/24 06:30 03/14/24 07:23 Levothyroxine 150 Mcg Tablet PO 03/11/25 06:29 150 mcg DAILY@0630 ANIBAL Administration Eszopiclone 3 Mg 3 mg 03/10/24 22:00 03/13/24 22:37 Tablet PO 03/10/25 21:59 Not Given QHS ANIBAL Oxycodone/Acetaminophen 1 tab 03/10/24 13:54 03/13/24 15:25 Oxycodone/Acetaminophen 5-325 Mg Tablet PO 1 tab Q6HR PRN Administration pain Polyethylene Glycol 17 gm 03/10/24 15:00 03/11/24 12:21 Polyethylene Glycol 3350 17 Gm Powd.Pack PO 03/10/25 14:59 17 gm DAILY PRN Administration Constipation Polyethylene Glycol 17 gm 03/11/24 10:34 Polyethylene Glycol 3350 17 Gm Powd.Pack PO 03/11/25 10:33 DAILY PRN Constipation Senna/Docusate Sodium 2 tab 03/10/24 21:00 03/13/24 21:26 Sennosides/Docusate 8.6-50mg 1 Tab Tablet PO 03/10/25 20:59 2 tab BID ANIBAL Administration Sodium Chloride 0 ml 03/10/24 10:00 Sodium Chloride 0.9 % 10 Ml Syringe IV-PUSH 03/10/25 09:59 PRN PRN Flush Trazodone HCl 50 mg 03/10/24 21:00 03/13/24 21:26 Trazodone 50 Mg Tablet PO 03/10/25 20:59 50 mg QPM ANIBAL Administration A&P - Hospitalist Assessment/Plan (1) LIS (acute kidney injury): Plan 1. Acute urine retention with obstructive uropathy and LIS. - This occurred in the setting of recent spine surgery, pain medications, pain improved and able tomaintain out of bed to chair. - Chou catheter replaced today due to high post-void residual > 300 cc, creatinine increased to2.39 from 2.27. Started flomax, if creatinine trending down on 03/16 will attempt void trial to determine discharge with or without chou catheter. 2. COVID-19 infection. Oxygen saturation 96% on room air. Observe. - likely incidental 3. Metabolic encephalopathy in the setting of the above. Resolved. 4. Recent lumbar decompression surgery 2 weeks ago in [facility]. No complications otherwise. PT OT and pain control. Continue treatment for chronic medical comorbidities with home regimen. Recent lumbar fusion surgery February 2024 A-fib on Eliquis HFrEF Hypothyroid Hypertension BPH Dyslipidemia Gout Sleep apnea Obesity class I Diet: regular Daily Labs: BMP Lines/Drains: PIV DVT ppx: apixiban 5 mg bid for afib Code status: Full Status: inpatient --> Discussed with patient at bedside. All questions answered. In agreement with theabove plan. Michele Knight MD Internal Medicine Hospitalist Attending Physician Documented By: Michele Knight MD 03/14/24 0852 Signed By: 03/14/24 1613 [facility]01-08-2025 Hospital Discharge instructions Additional Instructions SNF to manage: -Can re-attempt void trial in 48 hours, chou was replaced on 03/14/24 -Carvedilol and apixiban reduced dose for renal function -PT/OT to eval and treat -Monitor VS per protocol -Fall precautions -Perform respiratory and genitourinary assessments -Patient tested positive for COVID-19 on 03/10/24-- follow precautions -Monitor intake and output -Change dressing daily: *Back incision- clean with normal saline, apply skin prep to pratima wound, apply 4x4s and secure with opsite -Change dressing every 3 days: *Mepilex border foam to coccyx for added protection -Offload heels every 2 hours -Care to be managed by SNF providers.[facility] Work Phone: 1(668) 676-582901-07-2025 Progress note Author Michele Knight [facility] HospitalNote Date/TimeJanuary 2024 6:00[place] [address] Hospitalist Progress Note Signed Patient: Tavo Wallis Jr MR# : [id number] : 1940 Acct:[id number] Age/Sex: 83 / M Adm Date: 5 Loc: 3T Room: 8C4828-7 Type: ADM IN Attending Dr: Michele Knight MD Copies to: ~ Date of Service: 03/13/2024 Subjective Subjective Narrative: Remains alert and oriented, conversant, tolerating p.o., having bowel movements. Currently out of bed to chair, voiding without catheter, reports 1 incontinenceand 1 ambulation to bathroom. Exam Physical Exam Vital Signs: Temp Pulse Resp BP Pulse Ox O2 Del Method 97.6 F 72 16 114/72 96 Room Air 03/13/24 07:59 03/13/24 07:59 03/13/24 07:59 03/13/24 07:59 03/13/24 07:59 03/13/24 08:00 Narrative: General: cooperative and comfortable Orientation: alert, awake and oriented x3 Head: normal to inspection Neck: normal visual inspection Cardio: no JVD, regular rate, regular rhythm Chest palpation & inspection: normal inspection of the chest Resp Effort & Inspection: normal respiratory effort Abd: soft, non-tender, non-distended. Extremities: Warm well perfused, no edema Objective Lab Results 03/10/24 10:00 03/13/24 14:32 Microbiology Results Microbiology 03/10/24 10:18 Blood - Left Hand Blood Culture - Preliminary No Growth 3 Days 03/10/24 10:00 Blood - Left Antecubital Blood Culture - Preliminary No Growth 3 Days 03/10/24 14:45 Chou Port Urine Culture - Final No Growth 2 Days Meds Allergies and Active Meds Allergies fentanyl Allergy (Unknown, Verified 03/10/24 10:11) Dizziness, loopy indomethacin (From Indocin) Allergy (Unknown, Verified 03/10/24 10:11) Dizziness zolpidem (From Ambien) Allergy (Unknown, Verified 03/10/24 10:11) Confusion, memory loss Penicillins Allergy (Verified 03/10/24 10:11) Weakness Active Meds: Active Medications Generic Name Dose Route Start Last Admin Trade Name Lexq PRN Reason Stop Dose Admin Acetaminophen 500 mg 03/10/24 21:00 03/13/24 08:02 Acetaminophen 500 Mg Tablet PO 03/10/25 20:59 500 mg BID ANIBAL Administration Allopurinol 300 mg 03/11/24 09:00 03/13/24 08:02 Allopurinol 300 Mg Tablet PO 03/11/25 08:59 300 mg DAILY ANIBAL Administration Apixaban 5 mg 03/10/24 21:00 03/13/24 08:02 Apixaban 5 Mg Tablet PO 03/10/25 20:59 5 mg BID ANIBAL Administration Atorvastatin Calcium 40 mg 03/11/24 09:00 03/13/24 08:02 Atorvastatin 40 Mg Tablet PO 03/11/25 08:59 40 mg DAILY ANIBAL Administration Bumetanide 1 mg 03/11/24 09:25 03/13/24 08:02 Bumetanide 1 Mg Tablet PO 03/11/25 09:24 1 mg BID ANIBAL Administration Carvedilol 3.125 mg 03/10/24 21:00 03/13/24 08:02 Carvedilol 3.125 Mg Tablet PO 03/10/25 20:59 3.125 mg BID ANIBAL Administration Clindamycin HCl 300 mg 03/10/24 14:00 03/13/24 08:02 Clindamycin 300 Mg Capsule PO 300 mg QID ANIBAL Administration Levothyroxine Sodium 150 mcg 03/11/24 06:30 03/13/24 05:33 Levothyroxine 150 Mcg Tablet PO 03/11/25 06:29 150 mcg DAILY@0630 ANIBAL Administration Eszopiclone 3 Mg 3 mg 03/10/24 22:00 03/13/24 01:32 Tablet PO 03/10/25 21:59 Not Given QHS ANIBAL Oxycodone/Acetaminophen 1 tab 03/10/24 13:54 03/12/24 19:31 Oxycodone/Acetaminophen 5-325 Mg Tablet PO 1 tab Q6HR PRN Administration pain Polyethylene Glycol 17 gm 03/10/24 15:00 03/11/24 12:21 Polyethylene Glycol 3350 17 Gm Powd.Pack PO 03/10/25 14:59 17 gm DAILY PRN Administration Constipation Polyethylene Glycol 17 gm 03/11/24 10:34 Polyethylene Glycol 3350 17 Gm Powd.Pack PO 03/11/25 10:33 DAILY PRN Constipation Senna/Docusate Sodium 2 tab 03/10/24 21:00 03/13/24 08:02 Sennosides/Docusate 8.6-50mg 1 Tab Tablet PO 03/10/25 20:59 2 tab BID ANIBAL Administration Sodium Chloride 0 ml 03/10/24 10:00 Sodium Chloride 0.9 % 10 Ml Syringe IV-PUSH 03/10/25 09:59 PRN PRN Flush Trazodone HCl 50 mg 03/10/24 21:00 03/12/24 21:48 Trazodone 50 Mg Tablet PO 03/10/25 20:59 50 mg QPM ANIBAL Administration A&P - Hospitalist Assessment/Plan (1) LIS (acute kidney injury): Plan 1. Acute urine retention with obstructive uropathy and LIS. - This occurred in the setting of recent spine surgery, pain medications, pain improved and able tomaintain out of bed to chair. - Voiding spontaneously at present, will plan for bladder scan q8h -Light hydration, normal saline at 75 cc/h -Continue to trend renal function until back to baseline, 1.3-1.5. 2. COVID-19 infection. Oxygen saturation 96% on room air. Observe. - likely incidental 3. Metabolic encephalopathy in the setting of the above. Resolved. 4. Recent lumbar decompression surgery 2 weeks ago in [facility]. No complications otherwise. PT OT and pain control. Continue treatment for chronic medical comorbidities with home regimen. Recent lumbar fusion surgery February 2024 A-fib on Eliquis HFrEF Hypothyroid Hypertension BPH Dyslipidemia Gout Sleep apnea Obesity class I Diet: regular Daily Labs: BMP Lines/Drains: PIV DVT ppx: apixiban 5 mg bid for afib Code status: Full Status: inpatient --> Discussed with patient at bedside. All questions answered. In agreement with theabove plan. Michele Knight MD Internal Medicine Hospitalist Attending Physician Documented By: Michele Knight MD 03/13/24 1430 Signed By: <Electronically signed by Michele Knight MD> 03/13/24 1800 [facility] Work Phone: 1(625) [phone] [place] [address] Hospitalist Progress Note Signed Patient: Tavo Wallis Jr MR# : [id number] : 1940 Acct:[id number] Age/Sex: 83 / M Adm Date: 5 Loc: 3T Room: [address] [place] [address] Type: ADM IN Attending Dr: Michele Knight MD Copies to: ~ Date of Service: 03/13/2024 Subjective Subjective Narrative: Remains alert and oriented, conversant, tolerating p.o., having bowel movements. Currently out of bed to chair, voiding without catheter, reports 1 incontinenceand 1 ambulation to bathroom. Exam Physical Exam Vital Signs: Temp Pulse Resp BP Pulse Ox O2 Del Method 97.6 F 72 16 114/72 96 Room Air 03/13/24 07:59 01/07/25 07:59 03/13/24 07:59 03/13/24 07:59 03/13/24 07:59 03/13/24 08:00 Narrative: General: cooperative and comfortable Orientation: alert, awake and oriented x3 Head: normal to inspection Neck: normal visual inspection Cardio: no JVD, regular rate, regular rhythm Chest palpation & inspection: normal inspection of the chest Resp Effort & Inspection: normal respiratory effort Abd: soft, non-tender, non-distended. Extremities: Warm well perfused, no edema Objective Lab Results 03/10/24 10:00 03/13/24 14:32 Microbiology Results Microbiology 03/10/24 10:18 Blood - Left Hand Blood Culture - Preliminary No Growth 3 Days 03/10/24 10:00 Blood - Left Antecubital Blood Culture - Preliminary No Growth 3 Days 03/10/24 14:45 Chou Port Urine Culture - Final No Growth 2 Days Meds Allergies and Active Meds Allergies fentanyl Allergy (Unknown, Verified 03/10/24 10:11) Dizziness, loopy indomethacin (From Indocin) Allergy (Unknown, Verified 03/10/24 10:11) Dizziness zolpidem (From Ambien) Allergy (Unknown, Verified 03/10/24 10:11) Confusion, memory loss Penicillins Allergy (Verified 03/10/24 10:11) Weakness Active Meds: Active Medications Generic Name Dose Route Start Last Admin Trade Name Freq PRN Reason Stop Dose Admin Acetaminophen 500 mg 03/10/24 21:00 03/13/24 08:02 Acetaminophen 500 Mg Tablet PO 03/10/25 20:59 500 mg BID ANIBAL Administration Allopurinol 300 mg 03/11/24 09:00 03/13/24 08:02 Allopurinol 300 Mg Tablet PO 03/11/25 08:59 300 mg DAILY ANIBAL Administration Apixaban 5 mg 03/10/24 21:00 03/13/24 08:02 Apixaban 5 Mg Tablet PO 03/10/25 20:59 5 mg BID ANIBAL Administration Atorvastatin Calcium 40 mg 03/11/24 09:00 03/13/24 08:02 Atorvastatin 40 Mg Tablet PO 03/11/25 08:59 40 mg DAILY ANIBAL Administration Bumetanide 1 mg 03/11/24 09:25 03/13/24 08:02 Bumetanide 1 Mg Tablet PO 03/11/25 09:24 1 mg BID ANIBAL Administration Carvedilol 3.125 mg 03/10/24 21:00 03/13/24 08:02 Carvedilol 3.125 Mg Tablet PO 03/10/25 20:59 3.125 mg BID ANIBAL Administration Clindamycin HCl 300 mg 03/10/24 14:00 03/13/24 08:02 Clindamycin 300 Mg Capsule PO 300 mg QID ANIBAL Administration Levothyroxine Sodium 150 mcg 03/11/24 06:30 03/13/24 05:33 Levothyroxine 150 Mcg Tablet PO 03/11/25 06:29 150 mcg DAILY@0630 ANIBAL Administration Eszopiclone 3 Mg 3 mg 03/10/24 22:00 03/13/24 01:32 Tablet PO 03/10/25 21:59 Not Given QHS ANIBAL Oxycodone/Acetaminophen 1 tab 03/10/24 13:54 03/12/24 19:31 Oxycodone/Acetaminophen 5-325 Mg Tablet PO 1 tab Q6HR PRN Administration pain Polyethylene Glycol 17 gm 03/10/24 15:00 03/11/24 12:21 Polyethylene Glycol 3350 17 Gm Powd.Pack PO 03/10/25 14:59 17 gm DAILY PRN Administration Constipation Polyethylene Glycol 17 gm 03/11/24 10:34 Polyethylene Glycol 3350 17 Gm Powd.Pack PO 03/11/25 10:33 DAILY PRN Constipation Senna/Docusate Sodium 2 tab 03/10/24 21:00 03/13/24 08:02 Sennosides/Docusate 8.6-50mg 1 Tab Tablet PO 03/10/25 20:59 2 tab BID ANIBAL Administration Sodium Chloride 0 ml 03/10/24 10:00 Sodium Chloride 0.9 % 10 Ml Syringe IV-PUSH 03/10/25 09:59 PRN PRN Flush Trazodone HCl 50 mg 03/10/24 21:00 03/12/24 21:48 Trazodone 50 Mg Tablet PO 03/10/25 20:59 50 mg QPM ANIBAL Administration A&P - Hospitalist Assessment/Plan (1) LIS (acute kidney injury): Plan 1. Acute urine retention with obstructive uropathy and LIS. - This occurred in the setting of recent spine surgery, pain medications, pain improved and able tomaintain out of bed to chair. - Voiding spontaneously at present, will plan for bladder scan q8h -Light hydration, normal saline at 75 cc/h -Continue to trend renal function until back to baseline, 1.3-1.5. 2. COVID-19 infection. Oxygen saturation 96% on room air. Observe. - likely incidental 3. Metabolic encephalopathy in the setting of the above. Resolved. 4. Recent lumbar decompression surgery 2 weeks ago in [facility]. No complications otherwise. PT OT and pain control. Continue treatment for chronic medical comorbidities with home regimen. Recent lumbar fusion surgery February 2024 A-fib on Eliquis HFrEF Hypothyroid Hypertension BPH Dyslipidemia Gout Sleep apnea Obesity class I Diet: regular Daily Labs: BMP Lines/Drains: PIV DVT ppx: apixiban 5 mg bid for afib Code status: Full Status: inpatient --> Discussed with patient at bedside. All questions answered. In agreement with theabove plan. Michele Knight MD Internal Medicine Hospitalist Attending Physician Documented By: Michele Knight MD 03/13/24 1430 Signed By: 03/13/24 1800 [facility]01-06-2025 Progress note Author Michele Knight [facility] HospitalNote Date/TimeJanuary 2024 5:[place] [address] Hospitalist Progress Note Signed Patient: Tavo Wallis Jr MR# : [id number] : 1940 Acct:[id number] Age/Sex: 83 / M Adm Date: 5 Loc: 3T Room: [address] [place] [address] Type: ADM IN Attending Dr: Michele Knight MD Copies to: ~ Date of Service: 03/12/2024 Subjective Subjective Narrative: Alert and oriented, conversant, states pain is controlled. Tolerating p.o., having bowel movements.Ambulated out of bed to chair with PT OT Exam Physical Exam Vital Signs: Temp Pulse Resp BP Pulse Ox O2 Del Method 97.6 F 78 20 97/59 L 93 L Room Air 03/12/24 15:05 03/12/24 15:05 03/12/24 15:03/12/24 15:03/12/24 15:03/12/24 15:05 Narrative: General: cooperative and comfortable Orientation: alert, awake and oriented x3 Head: normal to inspection Neck: normal visual inspection Cardio: no JVD, regular rate, regular rhythm Chest palpation & inspection: normal inspection of the chest Resp Effort & Inspection: normal respiratory effort Abd: soft, non-tender, non-distended. Chou catheter in place Extremities: Warm well perfused, no edema Objective Lab Results 03/10/24 10:00 03/12/24 07:02 Microbiology Results Microbiology 03/10/24 10:18 Blood - Left Hand Blood Culture - Preliminary No Growth 2 Days 03/10/24 14:45 Chou Port Urine Culture - Final No Growth 2 Days 03/10/24 10:00 Blood - Left Antecubital Blood Culture - Preliminary No Growth 2 Days Meds Allergies and Active Meds Allergies fentanyl Allergy (Unknown, Verified 03/10/24 10:11) Dizziness, loopy indomethacin (From Indocin) Allergy (Unknown, Verified 03/10/24 10:11) Dizziness zolpidem (From Ambien) Allergy (Unknown, Verified 03/10/24 10:11) Confusion, memory loss Penicillins Allergy (Verified 03/10/24 10:11) Weakness Active Meds: Active Medications Generic Name Dose Route Start Last Admin Trade Name Freq PRN Reason Stop Dose Admin Acetaminophen 500 mg 03/10/24 21:00 03/12/24 08:56 Acetaminophen 500 Mg Tablet PO 03/10/25 20:59 500 mg BID ANIBAL Administration Allopurinol 300 mg 03/11/24 09:00 03/12/24 08:56 Allopurinol 300 Mg Tablet PO 03/11/25 08:59 300 mg DAILY ANIBAL Administration Apixaban 5 mg 03/10/24 21:00 03/12/24 08:56 Apixaban 5 Mg Tablet PO 03/10/25 20:59 5 mg BID ANIBAL Administration Atorvastatin Calcium 40 mg 03/11/24 09:00 03/12/24 08:56 Atorvastatin 40 Mg Tablet PO 03/11/25 08:59 40 mg DAILY ANIBAL Administration Bumetanide 1 mg 03/11/24 09:25 03/12/24 08:56 Bumetanide 1 Mg Tablet PO 03/11/25 09:24 1 mg BID ANIBAL Administration Carvedilol 3.125 mg 03/10/24 21:00 03/12/24 08:56 Carvedilol 3.125 Mg Tablet PO 03/10/25 20:59 3.125 mg BID ANIBAL Administration Clindamycin HCl 300 mg 03/10/24 14:00 03/12/24 15:06 Clindamycin 300 Mg Capsule PO 300 mg QID ANIBAL Administration Levothyroxine Sodium 150 mcg 03/11/24 06:30 03/12/24 06:40 Levothyroxine 150 Mcg Tablet PO 03/11/25 06:29 Not Given DAILY@0630 ANIBAL Eszopiclone 3 Mg 3 mg 03/10/24 22:00 03/11/24 21:22 Tablet PO 03/10/25 21:59 Not Given QHS ANIBAL Oxycodone/Acetaminophen 1 tab 03/10/24 13:54 03/12/24 12:45 Oxycodone/Acetaminophen 5-325 Mg Tablet PO 1 tab Q6HR PRN Administration pain Polyethylene Glycol 17 gm 03/10/24 15:00 03/11/24 12:21 Polyethylene Glycol 3350 17 Gm Powd.Pack PO 03/10/25 14:59 17 gm DAILY PRN Administration Constipation Polyethylene Glycol 17 gm 03/11/24 10:34 Polyethylene Glycol 3350 17 Gm Powd.Pack PO 03/11/25 10:33 DAILY PRN Constipation Senna/Docusate Sodium 2 tab 03/10/24 21:00 03/12/24 08:56 Sennosides/Docusate 8.6-50mg 1 Tab Tablet PO 03/10/25 20:59 2 tab BID ANIBAL Administration Sodium Chloride 0 ml 03/10/24 10:00 Sodium Chloride 0.9 % 10 Ml Syringe IV-PUSH 03/10/25 09:59 PRN PRN Flush Trazodone HCl 50 mg 03/10/24 21:00 03/11/24 21:20 Trazodone 50 Mg Tablet PO 03/10/25 20:59 50 mg QPM ANIBAL Administration A&P - Hospitalist Assessment/Plan (1) LIS (acute kidney injury): Plan 1. Acute urine retention with obstructive uropathy and LIS. - This occurred in the setting of recent spine surgery, pain medications - Urine output is good. Renal function is improving. Resume oral diuretics from home. Continue to monitor daily electrolytes, renal function and volume status. -DC Chou catheter, void trial, plan for reinsertion if postvoid residual volumeabove 300 cc -Continue to trend renal function until back to baseline, 1.3-1.5. 2. COVID-19 infection. Oxygen saturation 96% on room air. Observe. - likely incidental 3. Metabolic encephalopathy in the setting of the above. Resolved. 4. Recent lumbar decompression surgery 2 weeks ago in [facility]. No complications otherwise. PT OT and pain control. Continue treatment for chronic medical comorbidities with home regimen. Recent lumbar fusion surgery February 2024 A-fib on Eliquis HFrEF Hypothyroid Hypertension BPH Dyslipidemia Gout Sleep apnea Obesity class I Diet: regular Daily Labs: BMP Lines/Drains: PIV, Chou DVT ppx: apixiban 5 mg bid for afib Code status: Full Status: inpatient Discussed with patient at bedside. All questions answered. In agreement with theabove plan. Michele Knight MD Internal Medicine Hospitalist Attending Physician Documented By: Michele Knight MD 03/12/24 1706 Signed By: <Electronically signed by Michele Knight MD> 03/12/24 1964 [facility] Work Phone: 1(603) [phone] [address] Hospitalist Progress Note Signed Patient: Tavo Wallis Jr MR# : [id number] : 1940 Acct:[id number] Age/Sex: 83 / M Adm Date: 5 Loc: 3T Room: [address] [place] [address] Type: ADM IN Attending Dr: Michele Knight MD Copies to: ~ Date of Service: 03/12/2024 Subjective Subjective Narrative: Alert and oriented, conversant, states pain is controlled. Tolerating p.o., having bowel movements.Ambulated out of bed to chair with PT OT Exam Physical Exam Vital Signs: Temp Pulse Resp BP Pulse Ox O2 Del Method 97.6 F 78 20 97/59 L 93 L Room Air 03/12/24 15:05 03/12/24 15:05 03/12/24 15:05 03/12/24 15:05 03/12/24 15:03/12/24 15:05 Narrative: General: cooperative and comfortable Orientation: alert, awake and oriented x3 Head: normal to inspection Neck: normal visual inspection Cardio: no JVD, regular rate, regular rhythm Chest palpation & inspection: normal inspection of the chest Resp Effort & Inspection: normal respiratory effort Abd: soft, non-tender, non-distended. Chou catheter in place Extremities: Warm well perfused, no edema Objective Lab Results 03/10/24 10:00 03/12/24 07:02 Microbiology Results Microbiology 03/10/24 10:18 Blood - Left Hand Blood Culture - Preliminary No Growth 2 Days 03/10/24 14:45 Chou Port Urine Culture - Final No Growth 2 Days 03/10/24 10:00 Blood - Left Antecubital Blood Culture - Preliminary No Growth 2 Days Meds Allergies and Active Meds Allergies fentanyl Allergy (Unknown, Verified 03/10/24 10:11) Dizziness, loopy indomethacin (From Indocin) Allergy (Unknown, Verified 03/10/24 10:11) Dizziness zolpidem (From Ambien) Allergy (Unknown, Verified 03/10/24 10:11) Confusion, memory loss Penicillins Allergy (Verified 03/10/24 10:11) Weakness Active Meds: Active Medications Generic Name Dose Route Start Last Admin Trade Name Freq PRN Reason Stop Dose Admin Acetaminophen 500 mg 03/10/24 21:00 03/12/24 08:56 Acetaminophen 500 Mg Tablet PO 03/10/25 20:59 500 mg BID ANIBAL Administration Allopurinol 300 mg 03/11/24 09:00 03/12/24 08:56 Allopurinol 300 Mg Tablet PO 03/11/25 08:59 300 mg DAILY ANIBAL Administration Apixaban 5 mg 03/10/24 21:00 03/12/24 08:56 Apixaban 5 Mg Tablet PO 03/10/25 20:59 5 mg BID ANIBAL Administration Atorvastatin Calcium 40 mg 03/11/24 09:00 03/12/24 08:56 Atorvastatin 40 Mg Tablet PO 03/11/25 08:59 40 mg DAILY ANIBAL Administration Bumetanide 1 mg 03/11/24 09:25 03/12/24 08:56 Bumetanide 1 Mg Tablet PO 03/11/25 09:24 1 mg BID ANIBAL Administration Carvedilol 3.125 mg 03/10/24 21:00 03/12/24 08:56 Carvedilol 3.125 Mg Tablet PO 03/10/25 20:59 3.125 mg BID ANIBAL Administration Clindamycin HCl 300 mg 03/10/24 14:00 03/12/24 15:06 Clindamycin 300 Mg Capsule PO 300 mg QID ANIBAL Administration Levothyroxine Sodium 150 mcg 03/11/24 06:30 03/12/24 06:40 Levothyroxine 150 Mcg Tablet PO 03/11/25 06:29 Not Given DAILY@0630 ANIBAL Eszopiclone 3 Mg 3 mg 03/10/24 22:00 03/11/24 21:22 Tablet PO 03/10/25 21:59 Not Given QHS ANIBAL Oxycodone/Acetaminophen 1 tab 03/10/24 13:54 03/12/24 12:45 Oxycodone/Acetaminophen 5-325 Mg Tablet PO 1 tab Q6HR PRN Administration pain Polyethylene Glycol 17 gm 03/10/24 15:00 03/11/24 12:21 Polyethylene Glycol 3350 17 Gm Powd.Pack PO 03/10/25 14:59 17 gm DAILY PRN Administration Constipation Polyethylene Glycol 17 gm 03/11/24 10:34 Polyethylene Glycol 3350 17 Gm Powd.Pack PO 03/11/25 10:33 DAILY PRN Constipation Senna/Docusate Sodium 2 tab 03/10/24 21:00 03/12/24 08:56 Sennosides/Docusate 8.6-50mg 1 Tab Tablet PO 03/10/25 20:59 2 tab BID ANIBAL Administration Sodium Chloride 0 ml 03/10/24 10:00 Sodium Chloride 0.9 % 10 Ml Syringe IV-PUSH 03/10/25 09:59 PRN PRN Flush Trazodone HCl 50 mg 03/10/24 21:00 03/11/24 21:20 Trazodone 50 Mg Tablet PO 03/10/25 20:59 50 mg QPM ANIBAL Administration A&P - Hospitalist Assessment/Plan (1) LIS (acute kidney injury): Plan 1. Acute urine retention with obstructive uropathy and ILS. - This occurred in the setting of recent spine surgery, pain medications - Urine output is good. Renal function is improving. Resume oral diuretics from home. Continue to monitor daily electrolytes, renal function and volume status. -DC Chou catheter, void trial, plan for reinsertion if postvoid residual volumeabove 300 cc -Continue to trend renal function until back to baseline, 1.3-1.5. 2. COVID-19 infection. Oxygen saturation 96% on room air. Observe. - likely incidental 3. Metabolic encephalopathy in the setting of the above. Resolved. 4. Recent lumbar decompression surgery 2 weeks ago in [facility]. No complications otherwise. PT OT and pain control. Continue treatment for chronic medical comorbidities with home regimen. Recent lumbar fusion surgery February 2024 A-fib on Eliquis HFrEF Hypothyroid Hypertension BPH Dyslipidemia Gout Sleep apnea Obesity class I Diet: regular Daily Labs: BMP Lines/Drains: PIV, Chou DVT ppx: apixiban 5 mg bid for afib Code status: Full Status: inpatient Discussed with patient at bedside. All questions answered. In agreement with theabove plan. Michele Knight MD Internal Medicine Hospitalist Attending Physician Documented By: Michele Knight MD 03/12/241705 Signed By: 03/12/24 1712 [facility]01-05-2025 Progress note Author Mitchell Reyes [facility] Date/TimeJanuary 2024 12:33pm [place] [address] Hospitalist Progress Note Signed Patient: Tavo Wallis Jr MR# : [id number] : 1940 Acct:[id number] Age/Sex: 83 / M Adm Date: 5 Loc: Room: [address] [place] [address] Type: ADM IN Attending Dr: Mitchell Reyes MD Copies to: ~ Date of Service: 03/11/2024 Subjective Subjective Narrative: With better than yesterday. Mental status is improved. He has no acute complaints. Low back pain ismanageable. Heart is regular Lungs are clear Abdomen soft Neurological nonfocal Assessment and plan 1. Acute urine retention with obstructive uropathy and LIS. This occurred in the setting of recent spine surgery, pain medications etc. Urine output is good. Renal function is improving. Resume oral diuretics from home. Continue to monitor daily electrolytes, renal function and volume status. 2. COVID-19 infection. Oxygen saturation 96% on room air. Observe. 3. Metabolic encephalopathy in the setting of the above. Resolved. 4. Recent lumbar decompression surgery 2 weeks ago in [facility]. No complications otherwise. PT OT and pain control. Possible discharge back to SNF tomorrowUrinary retention, recent spine surgery 2weeks ago. Also hasCOVID, probably incidental finding. Discharge back to SNF tomorrow if renal function back to baseline. Continue treatment for chronic medical comorbidities with home regimen. Recent lumbar fusion surgery February 2024 A-fib on Eliquis HFrEF Hypothyroid Hypertension BPH Dyslipidemia Gout Sleep apnea Obesity class I Exam Physical Exam Vital Signs: Temp Pulse Resp BP Pulse Ox O2 Del Method 97.8 F 59 L 18 95/58 L 96 Room Air 03/11/24 11:04 03/11/24 11:04 03/11/24 11:04 03/11/24 11:04 03/11/24 11:04 03/11/24 11:04 Objective Lab Results 03/10/24 10:00 03/11/24 06:24 Microbiology Results Microbiology 03/10/24 14:45 Chou Port Urine Culture - Preliminary No Growth 1 Day 03/10/24 10:18 Blood - Left Hand Blood Culture - Preliminary No Growth 1 Day 03/10/24 10:00 Blood - Left Antecubital Blood Culture - Preliminary No Growth 1 Day 03/10/24 10:00 Nasopharyngeal Respiratory Panel (PCR) - Final Meds Allergies and Active Meds Allergies fentanyl Allergy (Unknown, Verified 03/10/24 10:11) Dizziness, loopy indomethacin (From Indocin) Allergy (Unknown, Verified 03/10/24 10:11) Dizziness zolpidem (From Ambien) Allergy (Unknown, Verified 03/10/24 10:11) Confusion, memory loss Penicillins Allergy (Verified 03/10/24 10:11) Weakness Active Meds: Active Medications Generic Name Dose Route Start Last Admin Trade Name Freq PRN Reason Stop Dose Admin Acetaminophen 500 mg 03/10/24 21:00 03/11/24 08:16 Acetaminophen 500 Mg Tablet PO 03/10/25 20:59 500 mg BID ANIBAL Administration Allopurinol 300 mg 03/11/24 09:00 03/11/24 08:20 Allopurinol 300 Mg Tablet PO 03/11/25 08:59 300 mg DAILY ANIBAL Administration Apixaban 5 mg 03/10/24 21:00 03/11/24 08:16 Apixaban 5 Mg Tablet PO 03/10/25 20:59 5 mg BID ANIBAL Administration Atorvastatin Calcium 40 mg 03/11/24 09:00 03/11/24 08:20 Atorvastatin 40 Mg Tablet PO 03/11/25 08:59 40 mg DAILY ANIBAL Administration Bumetanide 1 mg 03/11/24 09:25 03/11/24 09:42 Bumetanide 1 Mg Tablet PO 03/11/25 09:24 1 mg BID ANIBAL Administration Carvedilol 3.125 mg 03/10/24 21:00 03/11/24 08:16 Carvedilol 3.125 Mg Tablet PO 03/10/25 20:59 3.125 mg BID ANIBAL Administration Clindamycin HCl 300 mg 03/10/24 14:00 03/11/24 08:16 Clindamycin 300 Mg Capsule PO 300 mg QID ANIBAL Administration Influenza Virus Vacc Triv Types A&B 0.5 ml 03/11/24 14:37 Flu Vacc High-Dose Tv (65yr +)Pf 0.5 Ml Syringe 24-25 IM 03/11/24 14:38 .ONCE ONE Levothyroxine Sodium 150 mcg 03/11/24 06:30 03/11/24 05:30 Levothyroxine 150 Mcg Tablet PO 03/11/25 06:29 Not Given DAILY@0630 [facility] Eszopiclone 3 Mg 3 mg 03/10/24 22:00 03/11/24 00:18 Tablet PO 03/10/25 21:59 Not Given QHS ANIBAL Oxycodone/Acetaminophen 1 tab 03/10/24 13:54 03/10/24 18:29 Oxycodone/Acetaminophen 5-325 Mg Tablet PO 1 tab Q6HR PRN Administration pain Polyethylene Glycol 17 gm 03/10/24 15:00 03/11/24 12:21 Polyethylene Glycol 3350 17 Gm Powd.Pack PO 03/10/25 14:59 17 gm DAILY PRN Administration Constipation Polyethylene Glycol 17 gm 03/11/24 10:34 Polyethylene Glycol 3350 17 Gm Powd.Pack PO 03/11/25 10:33 DAILY PRN Constipation Senna/Docusate Sodium 2 tab 03/10/24 21:00 03/11/24 08:16 Sennosides/Docusate 8.6-50mg 1 Tab Tablet PO 03/10/25 20:59 2 tab BID ANIBAL Administration Sodium Chloride 0 ml 03/10/24 10:00 Sodium Chloride 0.9 % 10 Ml Syringe IV-PUSH 03/10/25 09:59 PRN PRN Flush Trazodone HCl 50 mg 03/10/24 21:00 03/10/24 20:27 Trazodone 50 Mg Tablet PO 03/10/25 20:59 50 mg QPM ANIBAL Administration A&P - Hospitalist Assessment/Plan (1) LIS (acute kidney injury): Plan . Documented By: Mitchell Reyes MD 03/11/24 1231 Signed By: <Electronically signed by Mitchell Reyes MD> 03/11/24 1233 [facility] Work Phone: 1(195) 639-159101-05-2025 [place] [address] Hospitalist Progress Note Signed Patient: Tavo Wallis Jr MR# : [id number] : 1940 Acct:[id number] Age/Sex: 83 / M Adm Date: 5 Loc: Room: [address] [place] [address] Type: ADM IN Attending Dr: Mitchell Reyes MD Copies to: ~ Date of Service: 03/11/2024 Subjective Subjective Narrative: With better than yesterday. Mental status is improved. He has no acute complaints. Low back pain ismanageable. Heart is regular Lungs are clear Abdomen soft Neurological nonfocal Assessment and plan 1. Acute urine retention with obstructive uropathy and LIS. This occurred in the setting of recent spine surgery, pain medications etc. Urine output is good. Renal function is improving. Resume oral diuretics from home. Continue to monitor daily electrolytes, renal function and volume status. 2. COVID-19 infection. Oxygen saturation 96% on room air. Observe. 3. Metabolic encephalopathy in the setting of the above. Resolved. 4. Recent lumbar decompression surgery 2 weeks ago in [facility]. No complications otherwise. PT OT and pain control. Possible discharge back to SNF tomorrowUrinary retention, recent spine surgery 2weeks ago. Also hasCOVID, probably incidental finding. Discharge back to SNF tomorrow if renal function back to baseline. Continue treatment for chronic medical comorbidities with home regimen. Recent lumbar fusion surgery February 2024 A-fib on Eliquis HFrEF Hypothyroid Hypertension BPH Dyslipidemia Gout Sleep apnea Obesity class I Exam Physical Exam Vital Signs: Temp Pulse Resp BP Pulse Ox O2 Del Method 97.8 F 59 L 18 95/58 L 96 Room Air 03/11/24 11:04 03/11/24 11:04 03/11/24 11:04 03/11/24 11:04 03/11/24 11:04 03/11/24 11:04 Objective Lab Results 03/10/24 10:00 03/11/24 06:24 Microbiology Results Microbiology 03/10/24 14:45 Chou Port Urine Culture - Preliminary No Growth 1 Day 03/10/24 10:18 Blood - Left Hand Blood Culture - Preliminary No Growth 1 Day 03/10/24 10:00 Blood - Left Antecubital Blood Culture - Preliminary No Growth 1 Day 03/10/24 10:00 Nasopharyngeal Respiratory Panel (PCR) - Final Meds Allergies and Active Meds Allergies fentanyl Allergy (Unknown, Verified 03/10/24 10:11) Dizziness, loopy indomethacin (From Indocin) Allergy (Unknown, Verified 03/10/24 10:11) Dizziness zolpidem (From Ambien) Allergy (Unknown, Verified 03/10/24 10:11) Confusion, memory loss Penicillins Allergy (Verified 03/10/24 10:11) Weakness Active Meds: Active Medications Generic Name Dose Route Start Last Admin Trade Name Vince PRN Reason Stop Dose Admin Acetaminophen 500 mg 03/10/24 21:00 03/11/24 08:16 Acetaminophen 500 Mg Tablet PO 03/10/25 20:59 500 mg BID ANIBAL Administration Allopurinol 300 mg 03/11/24 09:00 03/11/24 08:20 Allopurinol 300 Mg Tablet PO 03/11/25 08:59 300 mg DAILY ANIBAL Administration Apixaban 5 mg 03/10/24 21:00 03/11/24 08:16 Apixaban 5 Mg Tablet PO 03/10/25 20:59 5 mg BID ANIBAL Administration Atorvastatin Calcium 40 mg 03/11/24 09:00 03/11/24 08:20 Atorvastatin 40 Mg Tablet PO 03/11/25 08:59 40 mg DAILY ANIBAL Administration Bumetanide 1 mg 03/11/24 09:25 03/11/24 09:42 Bumetanide 1 Mg Tablet PO 03/11/25 09:24 1 mg BID ANIBAL Administration Carvedilol 3.125 mg 03/10/24 21:00 03/11/24 08:16 Carvedilol 3.125 Mg Tablet PO 03/10/25 20:59 3.125 mg BID ANIBAL Administration Clindamycin HCl 300 mg 03/10/24 14:00 03/11/24 08:16 Clindamycin 300 Mg Capsule PO 300 mg QID ANIBAL Administration Influenza Virus Vacc Triv Types A&B 0.5 ml 03/11/24 14:37 Flu Vacc High-Dose Tv (65yr +)Pf 0.5 Ml Syringe 24-25 IM 03/11/24 14:38 .ONCE ONE Levothyroxine Sodium 150 mcg 03/11/24 06:30 03/11/24 05:30 Levothyroxine 150 Mcg Tablet PO 03/11/25 06:29 Not Given DAILY@0630 [facility] Eszopiclone 3 Mg 3 mg 03/10/24 22:00 03/11/24 00:18 Tablet PO 03/10/25 21:59 Not Given QHS ANIBAL Oxycodone/Acetaminophen 1 tab 03/10/24 13:54 03/10/24 18:29 Oxycodone/Acetaminophen 5-325 Mg Tablet PO 1 tab Q6HR PRN Administration pain Polyethylene Glycol 17 gm 03/10/24 15:00 03/11/24 12:21 Polyethylene Glycol 3350 17 Gm Powd.Pack PO 03/10/25 14:59 17 gm DAILY PRN Administration Constipation Polyethylene Glycol 17 gm 03/11/24 10:34 Polyethylene Glycol 3350 17 Gm Powd.Pack PO 03/11/25 10:33 DAILY PRN Constipation Senna/Docusate Sodium 2 tab 03/10/24 21:00 03/11/24 08:16 Sennosides/Docusate 8.6-50mg 1 Tab Tablet PO 03/10/25 20:59 2 tab BID ANIBAL Administration Sodium Chloride 0 ml 03/10/24 10:00 Sodium Chloride 0.9 % 10 Ml Syringe IV-PUSH 03/10/25 09:59 PRN PRN Flush Trazodone HCl 50 mg 03/10/24 21:00 03/10/24 20:27 Trazodone 50 Mg Tablet PO 03/10/25 20:59 50 mg QPM ANIBAL Administration A&P - Hospitalist Assessment/Plan (1) LIS (acute kidney injury): Plan . Documented By: Mitchell Reyes MD 03/11/24 1231 Signed By: 03/11/24 1233 [facility]01-04-2025 History and physical note Author Mitchell Reyes [facility] Date/TimeJanuary 2024 3:49pm[place] [id number] Hospitalist H&P Signed Patient: Tavo Wallis Jr MR# : [id number] : 1940 Acct:[id number] Age/Sex: 83 / M Adm Date: 5 Loc: 3T Room: [address] [place] [address] Type: ADM IN Attending Dr: Mitchell Reyes MD Copies to: MD Opal Peters,DO~ HPI DATE OF EXAMINATION: 03/10/24 HISTORY OF PRESENT ILLNESS: Patient is a 89-year-old male, who was well until approximately 2 weeks ago, when he underwent spinal decompression surgery in [facility] about 2 weeks prior to presentation. He is a poor historian. His daughter at bedside is telling methat during the hospitalization, he had somewhat slow heart rateand low blood pressure, and he was giving fluids. As a result he developed edema, and upon discharge she was released with a diuretic therapy. About a week prior to presentation he was diagnosed witha urinary tract infection, Bactrim was prescribed for 5 days with improvement. He got better, but the day prior to presentation, he appeared loopy, confused, heart rate was low and blood pressurewas low. He was brought today to the emergency department. Patient does not really describe any pain or discomfort. No chest pain or shortness of breath. Past medical history Recent lumbar fusion surgery February 2024 A-fib on Eliquis HFrEF Hypothyroid Hypertension BPH Dyslipidemia Gout Sleep apnea Obesity class I 10 point review of systems cannot be performed due to mental status Physical exam Patient seen on the floor Patient appears comfortable, in no distress. Skin is normally colored, no icterus, cyanosis or edema noted. Capillary refill is normal. Joints are without any effusion. Abdomen is soft, benign, no rebound or rigidity. No organomegaly. Bowel sounds present. Bladder is distended on ultrasound exam. A Chou catheter was inserted in my presence, about 1400 cc urine was present. Heart regular, no gallop, rub or JVD. Peripheral pulses present bilaterally. Central venous pressure measured ultrasonographically is fairly normal at [id number] cc water. LV contractility is slightly decreased. Lungs are clear to auscultation, no rales, ronchi or wheezes. HENT normal Neurological: Patient is awake. Cognition is normal. Cranial nerves are intact. Power is symmetric all extremities, with no focal motor deficit identified on a cursory exam. Psych: affect is normal. EKG Labs imaging reviewed Assessment and plan 1. Acute urine retention with obstructive uropathy and LIS. Continue Chou catheter drainage. Patient appears to be otherwise with preserved central venous pressure, does not appear to be volume depleted from diuretics. Will hold both fluids and diuretics andreassess volume status on a daily basis. Maintain regular oral intake. Rule out urinary infection. 2. COVID-19 infection. Oxygen saturation 94% on room air. Observe. 3. Metabolic encephalopathy in the setting of the above. Continue treatment for chronic medical comorbidities with home regimen. Recent lumbar fusion surgery February 2024 A-fib on Eliquis HFrEF Hypothyroid Hypertension BPH Dyslipidemia Gout Sleep apnea Obesity class I [facility] Medical History Insomnia Hypothyroidism Hypertension Constipation BPH (benign prostatic [...] and Allergies Allergies fentanyl Allergy (Unknown, Verified 03/10/24 10:11) Dizziness, loopy indomethacin (From Indocin) Allergy (Unknown, Verified 03/10/24 10:11) Dizziness zolpidem (From Ambien) Allergy (Unknown, Verified 03/10/24 10:11) Confusion, memory loss Penicillins Allergy (Verified 03/10/24 10:11) Weakness Home Medications apixaban 5 mg tablet 5 mg PO BID 06/06/23 [History Confirmed 03/10/24] magnesium oxide 400 mg PO DAILY 06/06/23 [History Confirmed 03/10/24] oxycodone-acetaminophen 5 mg-325 mg tablet 1 tab PO Q6HR PRN pain 06/06/23 [History Confirmed 03/10/24] potassium chloride 20 mEq tablet,extended release(part/cryst) (Klor-Con M) 20 meq PO DAILY #90 tabs06/07/23 [Rx Confirmed 03/10/24] allopurinol 300 mg tablet 300 mg PO DAILY #90 tabs 06/09/23 [Rx Confirmed 03/10/24] atorvastatin 40 mg tablet 40 mg PO DAILY #90 tabs 09/01/23 [Rx Confirmed 03/10/24] eszopiclone 3 mg tablet 3 mg PO QHS 90 days #90 tabs 11/29/23 [Rx Confirmed 03/10/24] levothyroxine 150 mcg tablet (Synthroid) 150 mcg PO QAM #90 tabs 11/29/23 [Rx Confirmed 03/10/24] trazodone 50 mg tablet 50 mg PO QHS PRN insomnia #90 tabs 11/29/23 [Rx Confirmed 03/10/24] acetaminophen 500 mg tablet (Acetaminophen Extra Strength) 500 mg PO BID 03/10/24 [History Confirmed 03/10/24] bumetanide 1 mg tablet 1 mg PO BID 03/10/24 [History Confirmed 03/10/24] carvedilol 6.25 mg tablet 6.25 mg PO BID 03/10/24 [History Confirmed 03/10/24] clindamycin HCl 300 mg capsule (Cleocin HCl) 300 mg PO QID 03/10/24 [History Confirmed 03/10/24] metolazone 5 mg tablet 5 mg PO DAILY 03/10/24 [History Confirmed 03/10/24] Exam Physical Exam Vital Signs: Temp Pulse Resp BP Pulse Ox O2 Del Method 97.6 F 58 L 18 107/58 L 96 Room Air 03/10/24 09:52 03/10/24 13:32 03/10/24 11:19 03/10/24 13:32 03/10/24 13:32 03/10/24 13:32 Results - Hospitalist H&P Lab Results Labs: Laboratory Last Values Corrected WBC 8.5 X10E3/uL (4.1-10.5) 03/10/24 10:00 Uncorrected WBC Count 8.5 x10E3/uL (4.1-10.5) 03/10/24 10:00 RBC 2.78 x10E6/uL (3.90-5.60) L 03/10/24 10:00 Hgb 9.3 g/dL (13.0-17.0) L 03/10/24 10:00 Hct 27.9 % (38.8-50.0) L 03/10/24 10:00 MCV 100.5 fl (83.5-101) 03/10/24 10:00 MCH 33.6 pg (27.5-35.2) 03/10/24 10:00 MCHC 33.5 g/dL (32.5-35.6) 03/10/24 10:00 RDW 15.4 % (12.0-14.8) H 03/10/24 10:00 Plt Count 247 x10E3/uL (150-450) 03/10/24 10:00 MPV 7.6 fl (6.6-10.1) 03/10/24 10:00 Neut % (Auto) 71.6 % (.) 03/10/24 10:00 Lymph % (Auto) 11.9 % (.) 03/10/24 10:00 [place] % (Auto) 9.2 % (.) 03/10/24 10:00 Eos % (Auto) 5.9 % (.) 03/10/24 10:00 Baso % (Auto) 1.4 % (.) 03/10/24 10:00 Nucleat RBC Rel Count 0.0 /100 WBC (0-0.5) 03/10/24 10:00 Neut # (Auto) 6.1 x10E3/uL (1.8-7.7) 03/10/24 10:00 Lymph # (Auto) 1.0 x10E3/uL (1.00-4.8) 03/10/24 10:00 [place] # (Auto) 0.8 x10E3/uL (0.0-0.8) 03/10/24 10:00 Eos # (Auto) 0.5 x10E3/uL (0.0-0.45) H 03/10/24 10:00 Baso # (Auto) 0.1 x10E3/uL (0.0-0.2) 03/10/24 10:00 Monocyte Dist Width 22.24 % (0.00-20.00) H 03/10/24 10:00 PT 30.4 Seconds (9.0-12.9) H 03/10/24 10:00 INR 2.7 03/10/24 10:00 APTT 38.8 Seconds (25.1-36.5) H 03/10/24 10:00 PHA Creatinine Clear 19.97 03/10/24 10:00 Sodium 132 mmol/L (136-145) L 03/10/24 10:00 Potassium 4.5 mmol/L (3.5-5.1) 03/10/24 10:00 Chloride 98 mmol/L (98-107) 03/10/24 10:00 Carbon Dioxide 30.2 mmol/L (21.0-31.0) 03/10/24 10:00 Anion Gap 8.3 mEq/L (6.0-15.0) 03/10/24 10:00 BUN 40 mg/dL (7-25) H 03/10/24 10:00 Creatinine 3.07 mg/dL (0.70-1.30) H 03/10/24 10:00 Est GFR (CKD-EPI) 19.558 mL/Min 03/10/24 10:00 Glucose 125 mg/dL (70-100) H 03/10/24 10:00 Lactic Acid 1.2 mmol/L (0.5-2.2) 03/10/24 10:00 Calcium 8.3 mg/dL (8.6-10.3) L 03/10/24 10:00 Total Bilirubin 0.6 mg/dl (0.3-1.0) 03/10/24 10:00 Direct Bilirubin 0.20 mg/dL (0.03-0.18) H 03/10/24 10:00 Indirect Bilirubin 0.4 mg/dL 03/10/24 10:00 AST 18 U/L (13-39) 03/10/24 10:00 ALT 10 U/L (7-52) 03/10/24 10:00 Alkaline Phosphatase 111 U/L (34-104) H 03/10/24 10:00 Total Creatine Kinase 22 U/L (30-223) L 03/10/24 10:00 Troponin I High Sens 14.1 pg/mL (0.0-20.0) 03/10/24 10:00 B-Natriuretic Peptide 254.0 pg/mL (5-100) H 03/10/24 10:00 Total Protein 5.7 gm/dL (6.4-8.9) L 03/10/24 10:00 Albumin 2.7 gm/dL (3.5-5.7) L 03/10/24 10:00 Globulin 3.0 gm/dL 03/10/24 10:00 Albumin/Globulin Ratio 0.9 03/10/24 10:00 COVID-19 Clin Com Detected (Not Detecte) A 03/10/24 10:00 Microbiology Results Micro: Microbiology - Results from entire visit 03/10/24 10:00 Nasopharyngeal Respiratory Panel (PCR) - Final Assessment & Plan Assessment/Plan (1) LIS (acute kidney injury): Plan . IP vs OBS Justification Based on differential dx, clinical care plan, and risk of adverse events, if untreated, in my clinical judgement this patient requires an acute care setting as: INPATIENT because of an expectation ofan over 2 midnight stay. Estimated length of stay (# of days): 2 Documented By: Mitchell Reyes MD 03/10/24 1349 Signed By: <Electronically signed by Mitchell Reyes MD> 03/10/[address] [facility] Work Phone: 1(833) 738-916401-04-2025 [place] [address] Hospitalist H&P Signed Patient: Tavo Wallis Jr MR# : [id number] : 1940 Acct:[id number] Age/Sex: 83 / M Adm Date: 5 Loc: Room: [address] [place] [address] Type: ADM IN Attending Dr: Mitchell Reyes MD Copies to: MD Opal Peters,DO~ HPI DATE OF EXAMINATION: 03/10/24 HISTORY OF PRESENT ILLNESS: Patient is a 89-year-old male, who was well until approximately 2 weeks ago, when he underwent spinal decompression surgery in [facility] about 2 weeks prior to presentation. He is a poor historian. His daughter at bedside is telling methat during the hospitalization, he had somewhat slow heart rateand low blood pressure, and he was giving fluids. As a result he developed edema, and upon discharge she was released with a diuretic therapy. About a week prior to presentation he was diagnosed witha urinary tract infection, Bactrim was prescribed for 5 days with improvement. He got better, but the day prior to presentation, he appeared loopy, confused, heart rate was low and blood pressurewas low. He was brought today to the emergency department. Patient does not really describe any pain or discomfort. No chest pain or shortness of breath. Past medical history Recent lumbar fusion surgery February 2024 A-fib on Eliquis HFrEF Hypothyroid Hypertension BPH Dyslipidemia Gout Sleep apnea Obesity class I 10 point review of systems cannot be performed due to mental status Physical exam Patient seen on the floor Patient appears comfortable, in no distress. Skin is normally colored, no icterus, cyanosis or edema noted. Capillary refill is normal. Joints are without any effusion. Abdomen is soft, benign, no rebound or rigidity. No organomegaly. Bowel sounds present. Bladder is distended on ultrasound exam. A Chou catheter was inserted in my presence, about 1400 cc urine was present. Heart regular, no gallop, rub or JVD. Peripheral pulses present bilaterally. Central venous pressure measured ultrasonographically is fairly normal at [id number] cc water. LV contractility is slightly decreased. Lungs are clear to auscultation, no rales, ronchi or wheezes. HENT normal Neurological: Patient is awake. Cognition is normal. Cranial nerves are intact. Power is symmetric all extremities, with no focal motor deficit identified on a cursory exam. Psych: affect is normal. EKG Labs imaging reviewed Assessment and plan 1. Acute urine retention with obstructive uropathy and LIS. Continue Chou catheter drainage. Patient appears to be otherwise with preserved central venous pressure, does not appear to be volume depleted from diuretics. Will hold both fluids and diuretics andreassess volume status on a daily basis. Maintain regular oral intake. Rule out urinary infection. 2. COVID-19 infection. Oxygen saturation 94% on room air. Observe. 3. Metabolic encephalopathy in the setting of the above. Continue treatment for chronic medical comorbidities with home regimen. Recent lumbar fusion surgery February 2024 A-fib on Eliquis HFrEF Hypothyroid Hypertension BPH Dyslipidemia Gout Sleep apnea Obesity class I [facility] Medical History Insomnia Hypothyroidism Hypertension Constipation BPH (benign prostatic [...] and Allergies Allergies fentanyl Allergy (Unknown, Verified 03/10/24 10:11) Dizziness, loopy indomethacin (From Indocin) Allergy (Unknown, Verified 03/10/24 10:11) Dizziness zolpidem (From Ambien) Allergy (Unknown, Verified 03/10/24 10:11) Confusion, memory loss Penicillins Allergy (Verified 03/10/24 10:11) Weakness Home Medications apixaban 5 mg tablet 5 mg PO BID 06/06/23 [History Confirmed 03/10/24] magnesium oxide 400 mg PO DAILY 06/06/23 [History Confirmed 03/10/24] oxycodone-acetaminophen 5 mg-325 mg tablet 1 tab PO Q6HR PRN pain 06/06/23 [History Confirmed 03/10/24] potassium chloride 20 mEq tablet,extended release(part/cryst) (Klor-Con M) 20 meq PO DAILY #90 tabs06/07/23 [Rx Confirmed 03/10/24] allopurinol 300 mg tablet 300 mg PO DAILY #90 tabs 06/09/23 [Rx Confirmed 03/10/24] atorvastatin 40 mg tablet 40 mg PO DAILY #90 tabs 09/01/23 [Rx Confirmed 03/10/24] eszopiclone 3 mg tablet 3 mg PO QHS 90 days #90 tabs 11/29/23 [Rx Confirmed 03/10/24] levothyroxine 150 mcg tablet (Synthroid) 150 mcg PO QAM #90 tabs 11/29/23 [Rx Confirmed 03/10/24] trazodone 50 mg tablet 50 mg PO QHS PRN insomnia #90 tabs 11/29/23 [Rx Confirmed 03/10/24] acetaminophen 500 mg tablet (Acetaminophen Extra Strength) 500 mg PO BID 03/10/24 [History Confirmed 03/10/24] bumetanide 1 mg tablet 1 mg PO BID 03/10/24 [History Confirmed 03/10/24] carvedilol 6.25 mg tablet 6.25 mg PO BID 03/10/24 [History Confirmed 03/10/24] clindamycin HCl 300 mg capsule (Cleocin HCl) 300 mg PO QID 03/10/24 [History Confirmed 03/10/24] metolazone 5 mg tablet 5 mg PO DAILY 03/10/24 [History Confirmed 03/10/24] Exam Physical Exam Vital Signs: Temp Pulse Resp BP Pulse Ox O2 Del Method 97.6 F 58 L 18 107/58 L 96 Room Air 03/10/24 09:52 03/10/24 13:32 03/10/24 11:19 03/10/24 13:32 03/10/24 13:32 03/10/24 13:32 Results - Hospitalist H&P Lab Results Labs: Laboratory Last Values Corrected WBC 8.5 X10E3/uL (4.1-10.5) 03/10/24 10:00 Uncorrected WBC Count 8.5 x10E3/uL (4.1-10.5) 03/10/24 10:00 RBC 2.78 x10E6/uL (3.90-5.60) L 03/10/24 10:00 Hgb 9.3 g/dL (13.0-17.0) L 03/10/24 10:00 Hct 27.9 % (38.8-50.0) L 03/10/24 10:00 MCV 100.5 fl (83.5-101) 03/10/24 10:00 MCH 33.6 pg (27.5-35.2) 03/10/24 10:00 MCHC 33.5 g/dL (32.5-35.6) 03/10/24 10:00 RDW 15.4 % (12.0-14.8) H 03/10/24 10:00 Plt Count 247 x10E3/uL (150-450) 03/10/24 10:00 MPV 7.6 fl (6.6-10.1) 03/10/24 10:00 Neut % (Auto) 71.6 % (.) 03/10/24 10:00 Lymph % (Auto) 11.9 % (.) 03/10/24 10:00 [place] % (Auto) 9.2 % (.) 03/10/24 10:00 Eos % (Auto) 5.9 % (.) 03/10/24 10:00 Baso % (Auto) 1.4 % (.) 03/10/24 10:00 Nucleat RBC Rel Count 0.0 /100 WBC (0-0.5) 03/10/24 10:00 Neut # (Auto) 6.1 x10E3/uL (1.8-7.7) 03/10/24 10:00 Lymph # (Auto) 1.0 x10E3/uL (1.00-4.8) 03/10/24 10:00 [place] # (Auto) 0.8 x10E3/uL (0.0-0.8) 03/10/24 10:00 Eos # (Auto) 0.5 x10E3/uL (0.0-0.45) H 03/10/24 10:00 Baso # (Auto) 0.1 x10E3/uL (0.0-0.2) 03/10/24 10:00 Monocyte Dist Width 22.24 % (0.00-20.00) H 03/10/24 10:00 PT 30.4 Seconds (9.0-12.9) H 03/10/24 10:00 INR 2.7 03/10/24 10:00 APTT 38.8 Seconds (25.1-36.5) H 03/10/24 10:00 PHA Creatinine Clear 19.97 03/10/24 10:00 Sodium 132 mmol/L (136-145) L 03/10/24 10:00 Potassium 4.5 mmol/L (3.5-5.1) 03/10/24 10:00 Chloride 98 mmol/L (98-107) 03/10/24 10:00 Carbon Dioxide 30.2 mmol/L (21.0-31.0) 03/10/24 10:00 Anion Gap 8.3 mEq/L (6.0-15.0) 03/10/24 10:00 BUN 40 mg/dL (7-25) H 03/10/24 10:00 Creatinine 3.07 mg/dL (0.70-1.30) H 03/10/24 10:00 Est GFR (CKD-EPI) 19.558 mL/Min 03/10/24 10:00 Glucose 125 mg/dL (70-100) H 03/10/24 10:00 Lactic Acid 1.2 mmol/L (0.5-2.2) 03/10/24 10:00 Calcium 8.3 mg/dL (8.6-10.3) L 03/10/24 10:00 Total Bilirubin 0.6 mg/dl (0.3-1.0) 03/10/24 10:00 Direct Bilirubin 0.20 mg/dL (0.03-0.18) H 03/10/24 10:00 Indirect Bilirubin 0.4 mg/dL 03/10/24 10:00 AST 18 U/L (13-39) 03/10/24 10:00 ALT 10 U/L (7-52) 03/10/24 10:00 Alkaline Phosphatase 111 U/L (34-104) H 03/10/24 10:00 Total Creatine Kinase 22 U/L (30-223) L 03/10/24 10:00 Troponin I High Sens 14.1 pg/mL (0.0-20.0) 03/10/24 10:00 B-Natriuretic Peptide 254.0 pg/mL (5-100) H 03/10/24 10:00 Total Protein 5.7 gm/dL (6.4-8.9) L 03/10/24 10:00 Albumin 2.7 gm/dL (3.5-5.7) L 03/10/24 10:00 Globulin 3.0 gm/dL 03/10/24 10:00 Albumin/Globulin Ratio 0.9 03/10/24 10:00 COVID-19 Clin Com Detected (Not Detecte) A 03/10/24 10:00 Microbiology Results Micro: Microbiology - Results from entire visit 03/10/24 10:00 Nasopharyngeal Respiratory Panel (PCR) - Final Assessment & Plan Assessment/Plan (1) LIS (acute kidney injury): Plan . IP vs OBS Justification Based on differential dx, clinical care plan, and risk of adverse events, if untreated, in my clinical judgement this patient requires an acute care setting as: INPATIENT because of an expectation ofan over 2 midnight stay. Estimated length of stay (# of days): 2 Documented By: Mitchell Reyes MD 03/10/24 1349 Signed By: 03/10/24 1549 [facility]01-04-2025 Evaluation note* Diagnosis Onset Date Resolution Status Admit Date LIS (acute kidney injury) acuteJanuary 2024 11:26amCOVID-19acuteJanuary 2024 11:26amFatigueacute Eliza 2024 11:26am [facility] Work Phone: [phone]) 705-895512-23-2024 History of Present illness Narrative* Randa King MD - 02/27/2024 1:26 PM EST INTERNAL MEDICINE Progress Note 02/27/2024 1:26 PM Subjective: Admit Date: 02/21/2024 PCP: Opal Ga DO Interval History: No new fever, no chills. Bc no growth Bp improved, good UO on bumex Objective: Vitals: BP 109/73 Pulse 95 Temp 98 F (36.7 C) (Oral) Resp 18 Ht 1.676 m (5' 6 ) Wt 86.3 kg (190 lb 3.2 oz) SpO2 96% BMI 30.70 kg/m General appearance: alert and cooperative with exam, calm HEENT: atraumatic Neck: no adenopathy, no carotid bruit, and no JVD Lungs: diminished breath sounds bibasilar Heart: irregularly irregular rhythm and S1, S2 normal Abdomen: soft, non-tender; bowel sounds normal; no masses, no organomegaly Extremities: edema trace gem LE Neurologic:Alert, oriented to person and place, thought content appropriate Medications: Scheduled Meds: cefepime 2,000 mg IntraVENous Q12H apixaban 5 mg Oral BID lisinopril 2.5 mg Oral Daily thiamine 100 mg Oral Daily folic acid 1 mg Oral Daily magnesium citrate 296 mL Oral Once bumetanide 1 mg Oral Daily midodrine 2.5 mg Oral TID WC bisacodyl 10 mg Oral Daily sennosides-docusate sodium 2 tablet Oral BID allopurinol 300 mg Oral Daily atorvastatin 40 mg Oral Daily carvedilol 6.25 mg Oral BID WC levothyroxine 150 mcg Oral Daily traZODone 50 mg Oral Nightly sodium chloride flush 5-40 mL IntraVENous 2 times per day polyethylene glycol 17 g Oral Daily Continuous Infusions: sodium chloride 5 mL/hr at 02/25/24 2000 dextrose Lab Results: CBC: Recent Labs 02/25/24 0719 02/26/24 0622 02/27/24 0356 WBC 11.7* -- 13.6* HGB 8.8* 9.3* 9.2* PLT 180 -- 282 BMP: Recent Labs 02/25/24 0438 02/26/24 0622 02/27/24 0356 NA 134* 134* 131* K 2.9* 3.5 3.7 CL 97* 97* 96* CO2 26 24 23 BUN 17 21 30* CREATININE 1.1 1.2 1.5* GLUCOSE 100 109* 100 TSH: Lab Results Component Value Date/Time TSH 0.678 02/22/2024 04:12 PM ECHO: Left Ventricle: Moderately reduced left ventricular systolic function with a visually estimated EF of 35 - 40%. Left ventricle size is normal. Normal wall thickness. Normal wall motion. Normal diastolic function. Right Ventricle: Right ventricle is mildly dilated. Aortic Valve: Mildly thickened cusps. Mildly calcified cusps. 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 Tricuspid Valve: Mild to moderate regurgitation. Image quality is technically difficult. Technically difficult study, technically difficult study due to patient's body habitus and procedure performed with the patient in a supine position. COVID-19 & Influenza Combo [[id number]] Collected: 02/25/24 1109 Updated: 02/25/24 1153 Specimen Source: Nasopharyngeal Swab SARS-CoV-2 RNA, RT PCR NOT DETECTED Comment: Influenza A NOT DETECTED Influenza B NOT DETECTED Lactic Acid, Sepsis 1.0 XR CHEST PORTABLE [[id number]] Collected: 02/24/242041 Updated: 02/24/242142 Narrative: 1 view chest x-ray Comparison: None Findings: Fdgyjzas-re-fgbvdr cardiomegaly. Small left and trace right pleural effusions. Cephalization pulmonary vasculature with diffusely increased interstitial markings and diffuse hazy alveolar opacity. No pneumothorax. Impression: 1. [id number] cardiomegaly with pulmonary edema and pleural effusions. Findings are consistent with CHF. 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 Status post L2-L5 decompression and posterior spinal fusion. Chronic atrial fibrillation. Nonischemic cardiomyopathy. Chronic HFrEF EF 35-40% Hypothyroidism. H/o alcohol abuse preop, no DT Hypokalemia related to diuretics. -Resolved. Postop fever, query source Negative blood cultures, Cont Bumex, cont coreg ACEI Continue routine postop care, For dc to SNF today. Randa King MD, MD * Nayely Chau, PT - 02/27/2024 8:46 AM EST [facility] INPATIENT PHYSICAL THERAPY DAILY NOTE STRZ ICU STEPDOWN TELEMETRY 4K - 4K-25/025-A Discharge Recommendations: Subacte/Longterm Facility Equipment Recommendations: No (Patient has RW, cane and wheelchair) Time In: 0800 Time Out: 0842 Timed Code Treatment Minutes: 42 Minutes Minutes: 42 Date: 02/27/2024 Patient Name: Tavo Wallis, Gender: male : 1940 (83 y.o.) Referring Practitioner: Gustabo May PA Diagnosis: Lumbar stenosis with neurogenic claudication Additional Pertinent Hx: The patient is a 83-year-old male who is having constant low back pain with radiation of pain into the bilateral legs with numbness. The patient reports symptoms have been present on a chronic basis. Current VAS score 7/10. Activities that aggravate the pain include standing and walking. Activities that help alleviate the pain include rest. Modifying factors include medication management, physical therapy, and injections/RFA. These have provided mild relief with no lasting benefit. He had a prior lumbar surgery with Dr. Calvillo in 2010. Former smoker. S/P L2-5 decompression and noninstrumented fusion 02/20 Prior Level of Function: Lives With: Alone Type of Home: House Home Layout: One level Home Access: Ramped entrance Home Equipment: Cane, Walker - Rolling, Walker - 4-Wheeled, Wheelchair - Manual Bathroom Shower/Tub: Walk-in shower Bathroom Toilet: Standard Bathroom Equipment: Commode Prior Level of Assist for ADLs: Independent Prior Level of Assist for Homemaking: Independent Homemaking Responsibilities: Yes Prior Level of Assist for Transfers: Independent Active Otorhinolaryngologist: Yes (Daughter able to transport until cleared to drive again.) 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 son lives on same property but behind patient. Family lives near by and comes often Prior Level of Assist for Ambulation: Independent household ambulator, with or without device Has the patient had two or more falls in the past year or any fall with injury in the past year?: Yes (~5) Restrictions/Precautions: Restrictions/Precautions: General Precautions, Fall Risk Required Braces or Orthoses Spinal: (LSO when up) Position Activity Restriction Spinal Precautions: No Bending, No Lifting, No Twisting Other Position/Activity Restrictions: hemovac x1 SUBJECTIVE: OK to see pt per nursing. Pt in bed when PT arrived, incontinent of BM during session. Extensive time for hygiene care in bed, tech in room to assist. PAIN: 6/10: back Vitals: Vitals not assessed per clinical judgement, see nursing flowsheet OBJECTIVE: Bed Mobility: Rolling to Left: Minimal Assistance, Moderate Assistance, with head of bed flat, with rail Rolling to Right: Minimal Assistance, Moderate Assistance, X 1, with head of bed flat, with rail, with verbal cues Supine to Sit: Moderate Assistance, X 1, with head of bed flat, with rail, with verbal cues Scooting: Contact Guard Assistance to scoot hips to EOB Pt completed rolling multiple times in bed to complete hygiene care and pratima care. Educated on log roll to complete tasks. Transfers: Sit to Stand: Minimal Assistance, X 1, cues for hand placement, with verbal cues Stand to Sit:Minimal Assistance, X 1, cues for hand placement, with verbal cues RW for support, slow transitions Ambulation: Contact Guard Assistance, Minimal Assistance, X 1, with cues for safety, with verbal cues , with increased time for completion Distance: 4 feet to chair Surface: Level Tile Device: Rolling Walker Gait Deviations: Forward Flexed Posture, Slow Rafaela, Decreased Step Length Bilaterally, DecreasedGait Speed, Decreased Foot Clearance Right, Decreased Foot Clearance Left, and Increased reliance on assistive device Shuffled steps, cues for sequencing, slow pace Stairs: Not Tested Balance: Static Sitting Balance: Stand By Assistance Dynamic Sitting Balance: Contact Guard Assistance Static Standing Balance: Contact Guard Assistance, Minimal Assistance Pt sitting on EOB, changed gown, applied brace with education on application. RW for support once in standing Exercise: None Functional Outcome Measures: [facility] (6 CLICK) BASIC MOBILITY AM-[facility] Inpatient Mobility Raw Score : 13 AM-[facility] Inpatient T-Scale Score : 36.74 Modified [place] Scale: Not Applicable ASSESSMENT: Assessment: Patient progressing toward established goals. Activity Tolerance: Patient tolerance of treatment:Fair. Plan: Current Treatment Recommendations: Strengthening, Balance training, Endurance training, Functional mobility training, Transfer training, Gait training, Stair training, Neuromuscular re-education, Safety education & training, Patient/Caregiver education & training, Therapeutic activities, Equipment evaluation, education, & procurement, Home exercise program General Plan: (5x O) Education: Learners: Patient and Family Patient Education: Plan of Care, Precautions/Restrictions, Bed Mobility, Equipment Education, Transfers, Gait, Use of Gait Belt, - Patient Verbalized Understanding, - Patient Requires Continued Education Goals: Patient Goals : None Stated Short Term Goals Time Frame for Short Term Goals: Duration of stay Short Term Goal 1: PT to assess bed mobility when able Short Term Goal 2: Patient to perform sit<>stand transfers with Supervision in order to assist with safety with transfers in home. Short Term Goal 3: Patient to ambulate >/=75 feet with use of RW and Supervision in order to assist with home mobility. Short Term Goal 4: Patient to ambulate up/down 20 foot ramp with use of RW and Supervision in orderto assist with home entry. [employer] Goals Time Frame for Care Home Goals : N/A due to ELOS Following session, patient left in safe position with all fall risk precautions in place. Pt in bedside chair following session, all needs and call light in reach, alarm on. * Gustabo May PA - 02/27/2024 8:01 AM EST Department of Orthopedic Surgery Spine Service Attending Progress Note Subjective: POD#6 patient overall doing better, back pain improved. No radicular complaints. Working with therapy Vitals VITALS: BP (!) 105/58 Pulse 88 Temp 98.1 F (36.7 C) (Oral) Resp 18 Ht 1.676 m (5' 6 ) Wt 86.3 kg (190 lb 3.2 oz) SpO2 98% BMI 30.70 kg/m 24HR INTAKE/OUTPUT: Intake/Output Summary (Last 24 hours) at 02/27/2024 0801 Last data filed at 02/27/2024 0743 Gross per 24 hour Intake -- Output 320 ml Net -320 ml URINARY CATHETER OUTPUT (Chou): External Urinary Catheter-Output (mL): 300 mL DRAIN/TUBE OUTPUT: Closed/Suction Drain Back Accordion-Output (ml): 0 ml PHYSICAL EXAM: Orientation: awake and alert and oriented x 3 Incision: dressing in place, clean, dry, intact Lower Extremity Motor : 5/5 bilateral pedal push/pull except 4/5 left TA (chronic). Able to bend both legs in bed without issue Lower Extremity Sensory: Intact L1-S1 Swelling LE with wraps Flatus: positive LABS: HgB: Lab Results Component Value Date/Time HGB 9.2 02/27/2024 03:56 AM Hemoglobin/Hematocrit: Lab Results Component Value Date/Time HGB 9.2 02/27/2024 03:56 AM HCT 27.6 02/27/2024 03:56 AM BMP: Lab Results Component Value Date/Time NA 131 02/27/2024 03:56 AM K 3.7 02/27/2024 03:56 AM CL 96 02/27/2024 03:56 AM CO2 23 02/27/2024 03:56 AM BUN 30 02/27/2024 03:56 AM CREATININE 1.5 02/27/2024 03:56 AM CALCIUM 8.5 02/27/2024 03:56 AM LABGLOM 46 02/27/2024 03:56 AM GLUCOSE 100 02/27/2024 03:56 AM ASSESSMENT AND PLAN: Post operative day 6 status post L2-5 decompression and noninstrumented fusion 1: Monitor labs. Remove drain 2: Activity Level: As tolerated. PT/OT, back brace when ambulating 3: Pain Control: Ok 4: Discharge Planning: SNF today 5: acute blood loss anemia s/p surgery - hgb stable 9.2 6: Resume Eliquis 7: potassium replacement protocol - normal today ISSA Najera * Randa King MD - 02/26/2024 5:16 PM EST INTERNAL MEDICINE Progress Note 02/26/2024 5:16 PM Subjective: Admit Date: 02/21/2024 PCP: Opal Ga DO Interval History: No new fever, no chills. Bp improved, good UO on bumex Objective: Vitals: BP 108/89 Pulse 97 Temp 98.2 F (36.8 C) (Oral) Resp 18 Ht 1.676 m (5' 6 ) Wt 86.3kg (190 lb 3.2 oz) SpO2 95% BMI 30.70 kg/m General appearance: alert and cooperative with exam, calm HEENT: atraumatic Neck: no adenopathy, no carotid bruit, and no JVD Lungs: diminished breath sounds bibasilar Heart: irregularly irregular rhythm and S1, S2 normal Abdomen: soft, non-tender; bowel sounds normal; no masses, no organomegaly Extremities: edema trace gem LE Neurologic:Alert, oriented to person and place, thought content appropriate Medications: Scheduled Meds: cefepime 2,000 mg IntraVENous Q12H apixaban 5 mg Oral BID lisinopril 2.5 mg Oral Daily thiamine 100 mg Oral Daily folic acid 1 mg Oral Daily magnesium citrate 296 mL Oral Once bumetanide 1 mg Oral Daily midodrine 2.5 mg Oral TID WC bisacodyl 10 mg Oral Daily sennosides-docusate sodium 2 tablet Oral BID allopurinol 300 mg Oral Daily atorvastatin 40 mg Oral Daily carvedilol 6.25 mg Oral BID WC levothyroxine 150 mcg Oral Daily traZODone 50 mg Oral Nightly sodium chloride flush 5-40 mL IntraVENous 2 times per day polyethylene glycol 17 g Oral Daily Continuous Infusions: sodium chloride 5 mL/hr at 02/25/24 2000 dextrose Lab Results: CBC: Recent Labs 02/25/24 0438 02/25/24 0719 02/26/24 0622 WBC -- 11.7* -- HGB 8.2* 8.8* 9.3* PLT -- 180 -- BMP: Recent Labs 02/24/24 0404 02/25/24 0438 02/26/24 0622 NA 138 134* 134* K 3.9 2.9* 3.5 CL 104 97* 97* CO2 BUN CREATININE 1.2 1.1 1.2 GLUCOSE 126* 100 109* TSH: Lab Results Component Value Date/Time TSH 0.678 02/22/2024 04:12 PM ECHO: Left Ventricle: Moderately reduced left ventricular systolic function with a visually estimated EF of 35 - 40%. Left ventricle size is normal. Normal wall thickness. Normal wall motion. Normal diastolic function. Right Ventricle: Right ventricle is mildly dilated. Aortic Valve: Mildly thickened cusps. Mildly calcified cusps. 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 Tricuspid Valve: Mild to moderate regurgitation. Image quality is technically difficult. Technically difficult study, technically difficult study due to patient's body habitus and procedure performed with the patient in a supine position. COVID-19 & Influenza Combo [[id number]] Collected: 02/25/24 1109 Updated: 02/25/24 1153 Specimen Source: Nasopharyngeal Swab SARS-CoV-2 RNA, RT PCR NOT DETECTED Comment: Influenza A NOT DETECTED Influenza B NOT DETECTED Lactic Acid, Sepsis 1.0 XR CHEST PORTABLE [[id number]] Collected: 02/24/242041 Updated: 02/24/242142 Narrative: 1 view chest x-ray Comparison: None Findings: Ebkeronq-ns-xvrygv cardiomegaly. Small left and trace right pleural effusions. Cephalization pulmonary vasculature with diffusely increased interstitial markings and diffuse hazy alveolar opacity. No pneumothorax. Impression: 1. Iyxrbxhd-cy-brxrmo cardiomegaly with pulmonary edema and pleural effusions. Findings are consistent with CHF. 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 Status post L2-L5 decompression and posterior spinal fusion. Chronic atrial fibrillation. Nonischemic cardiomyopathy. Chronic HFrEF EF 35-40% Hypothyroidism. H/o alcohol abuse preop, no DT Hypokalemia related to diuretics. -Resolved. Postop fever, query source Negative blood cultures, Continue empiric antibiotics as initiated. Cont Bumex, cont coreg ACEI Continue routine postop care, PT/OT Randa King MD, MD * Qing Steele OTA - 02/26/2024 1:58 PM EST [facility] ICU STEPDOWN TELEMETRY 4K Occupational Therapy Daily Note Discharge Recommendations: Continue to assess pending progress, ECF with OT, and Patient would benefit from continued OT at discharge Equipment Recommendations: No continue to monitor Time In: 1316 Time Out: 1357 Timed Code Treatment Minutes: 41 Minutes Minutes: 41 Date: 02/26/2024 Patient Name: Tavo Wallis, Gender: male Room: [address] [place] [address] : 1940 (83 y.o.) Referring Practitioner: Randi Burris MD Diagnosis: Lumbar stenosis with neurogenic claudication Additional Pertinent Hx: The patient is a 83-year-old male who is having constant low back pain with radiation of pain into the bilateral legs with numbness. The patient reports symptoms have been present on a chronic basis. Current VAS score 7/10. Activities that aggravate the pain include standing and walking. Activities that help alleviate the pain include rest. Modifying factors include medication management, physical therapy, and injections/RFA. These have provided mild relief with no lasting benefit. He had a prior lumbar surgery with Dr. Calvillo in 2010. Former smoker. S/P L2-5 decompression and noninstrumented fusion 02/20 Restrictions/Precautions: Restrictions/Precautions: General Precautions, Fall Risk Required Braces or Orthoses Spinal: (LSO when up) Position Activity Restriction Spinal Precautions: No Bending, No Lifting, No Twisting Other Position/Activity Restrictions: hemovac x1 Social/Functional History: Lives With: Alone Type of Home: House Home Layout: One level Home Access: Ramped entrance Home Equipment: Cane, Walker - Rolling, Walker - 4-Wheeled, Wheelchair - Manual Bathroom Shower/Tub: Walk-in shower Bathroom Toilet: Standard Bathroom Equipment: Commode Prior Level of Assist for ADLs: Independent Prior Level of Assist for Homemaking: Independent Homemaking Responsibilities: Yes Prior Level of Assist for Transfers: Independent Prior Level of Assist for Ambulation: Independent household ambulator, with or without device Has the patient had two or more falls in the past year or any fall with injury in the past year?: Yes (~5) Active Otorhinolaryngologist: Yes (Daughter able to transport until cleared to drive again.) Mode of Transportation: Truck 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 son lives on same property but behind patient. Family lives near by and comes often SUBJECTIVE: pt lying in bed when arrived. Daughter in room. Bed alarm on when arrived and back on at end of session PAIN:pt stated back pain and at end of session wanted some tylenol RN notified Vitals: vitals being checked with montior throughout session COGNITION: Decreased Insight, Impaired Memory, Inattention, Decreased Problem Solving, and Decreased Safety Awareness Telesitter in room ADL: Toileting: Dependent. To wipe bottom and change depends Toilet Transfer: Moderate Assistance, with verbal cues , and with increased time for completion. ToBSC . Max A to don and doff back brace IADL: Not Tested BALANCE: Sitting Balance: Contact Guard Assistance. Sitting EOB with cues for upright posture Standing Balance: Contact Guard Assistance, Minimal Assistance, with verbal cues , with increased time for completion. Was leaning to R intially when up was able to correct with verbal and tactile cues. BED MOBILITY: Supine to Sit: Moderate Assistance, with verbal cues , with increased time for completion trunk offbed Sit to Supine: Maximum Assistance, with head of bed raised, with rail, with verbal cues , with increased time for completion for LE in bed TRANSFERS: Sit to Stand: Moderate Assistance, with increased time for completion, cues for hand placement, with verbal cues. Stand to Sit: Moderate Assistance, with increased time for completion, cues for hand placement, with verbal cues. FUNCTIONAL MOBILITY: Assistive Device: Rolling Walker Assist Level: Minimal Assistance, Moderate Assistance, with verbal cues , and with increased time for completion. Distance: from EOB to BSC No LOB, very unsteady throughout Modified [place] Scale: Not Applicable ASSESSMENT: Activity Tolerance: Patient tolerance of treatment: Fair treatment tolerance Plan: Times Per Week: 6x Current Treatment Recommendations: Balance training, Strengthening, Functional mobility training, Endurance training, Safety education & training, Patient/Caregiver education & training, Painmanagement, Cognitive reorientation, Equipment evaluation, education, & procurement, Self-Care / ADL, Home management training Education: Learners: Patient and Family ADL's, Precautions, and Importance of Increasing Activity Goals Short Term Goals Time Frame for Short Term Goals: until discharge Short Term Goal 1: Patient will safely complete various functional transfers with supervision and 0-1 cues for spinal precautions to improve safety in living environment. Short Term Goal 2: Patient will improve functional ambulation to/from bathroom with SBA and LRAD, 0-1 vcs for safety in prep for return to PLOF. Short Term Goal 3: Patient will complete UB/LB dressing/bathing with CGA and use of LHAE prn to maintain spinal precautions to improve ease in BADL routine. Short Term Goal 4: Patient will tolerate standing 7-12 minutes with BUE release reaching ouside base of support with SBA to complete sink side grooming. Care Home Goals Time Frame for Patternmaker Wood Goals : None due to ELOS Following session, patient left in safe position with all fall risk precautions in place. * Nayely Chau PT - 02/26/2024 10:40 AM EST [facility] INPATIENT PHYSICAL THERAPY DAILY NOTE [facility] ICU STEPDOWN TELEMETRY 4K - 4K-25/025-A Discharge Recommendations: Subacte/Longterm Facility Equipment Recommendations: No (Patient has RW, cane and wheelchair) Time In: 1004 Time Out: 1050 Timed Code Treatment Minutes: 46 Minutes Minutes: 46 Date: 02/26/2024 Patient Name: Tavo Wallis, Gender: male : 1940 (83 y.o.) Referring Practitioner: Gustabo May PA Diagnosis: Lumbar stenosis with neurogenic claudication Additional Pertinent Hx: The patient is a 83-year-old male who is having constant low back pain with radiation of pain into the bilateral legs with numbness. The patient reports symptoms have been present on a chronic basis. Current VAS score 7/10. Activities that aggravate the pain include standing and walking. Activities that help alleviate the pain include rest. Modifying factors include medication management, physical therapy, and injections/RFA. These have provided mild relief with no lasting benefit. He had a prior lumbar surgery with Dr. Calvillo in 2010. Former smoker. S/P L2-5 decompression and noninstrumented fusion 02/20 Prior Level of Function: Lives With: Alone Type of Home: House Home Layout: One level Home Access: Ramped entrance Home Equipment: Cane, Walker - Rolling, Walker - 4-Wheeled, Wheelchair - Manual Bathroom Shower/Tub: Walk-in shower Bathroom Toilet: Standard Bathroom Equipment: Commode Prior Level of Assist for ADLs: Independent Prior Level of Assist for Homemaking: Independent Homemaking Responsibilities: Yes Prior Level of Assist for Transfers: Independent Active Otorhinolaryngologist: Yes (Daughter able to transport until cleared to drive again.) 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 son lives on same property but behind patient. Family lives near by and comes often Prior Level of Assist for Ambulation: Independent household ambulator, with or without device Has the patient had two or more falls in the past year or any fall with injury in the past year?: Yes (~5) Restrictions/Precautions: Restrictions/Precautions: General Precautions, Fall Risk Required Braces or Orthoses Spinal: (LSO when up) Position Activity Restriction Spinal Precautions: No Bending, No Lifting, No Twisting Other Position/Activity Restrictions: hemovac x1 SUBJECTIVE: Ok to see pt per nursing. Pt in bedside chair when PT arrived, agreeable to PT session,daughter present, would occasionally limit functional mobility/assessment of pt during session. Pt incontinent and required assist for hygiene and pratima care, increased time. PAIN: 08/14: back with prolong tasks Vitals: Oxygen: 96% on room air Heart Rate: 90s to 124 at times with mobility OBJECTIVE: Bed Mobility: Sit to Supine: Maximum Assistance, X 1, with head of bed flat, with verbal cues Scooting: Dependent Assist for BLE to place back in bed, educated on sequencing. Increased time for positioning with mod-min A required. Transfers: Sit to Stand: Minimal Assistance, Moderate Assistance, X 1, cues for hand placement, with verbal cues Stand to Sit:Minimal Assistance, X 1, cues for hand placement, with verbal cues Completed from various surfaces and heights during session. Slow transitions and cues for sequencing. RW for support Ambulation: Minimal Assistance Distance: 2 feet, 4 feet Surface: Level Tile Device: Rolling Walker Gait Deviations: Forward Flexed Posture, Slow Rafaela, Decreased Step Length Bilaterally, DecreasedWeight Shift Bilaterally, Decreased Gait Speed, Decreased Foot Clearance Right, Decreased Foot Clearance Left, Unsteady Gait, and Increased reliance on assistive device Slow pace, cues for safety with step by step commands. Min A for RW management Stairs: Not Tested Balance: Static Sitting Balance: Stand By Assistance Dynamic Sitting Balance: Contact Guard Assistance Static Standing Balance: Minimal Assistance, Moderate Assistance, X 1, with cues for safety, with verbal cues Brace donned in sitting prior to tasks with education on application. Initially required mod A due to increased posterior lean, progressed to Min A. Pt required assist for pratima care x3 during session. Attempted to complete toileting tasks, brief donned. Exercise: Patient was guided in 1 set(s) 10 reps of exercises to both lower extremities: Ankle pumps, Glut sets, Quad sets, Heelslides, Hip abduction/adduction and Straight leg raises. Exercises were completedfor increased independence with functional mobility. Pt required VC and visual cues for proper technique of exercises with good demo. Functional Outcome Measures: [facility] (6 CLICK) BASIC MOBILITY AM-[facility] Inpatient Mobility Raw Score : 13 AM-[facility] Inpatient T-Scale Score : 36.74 Modified [place] Scale: Not Applicable ASSESSMENT: Assessment: fair progression, increased assist for transfers this session Activity Tolerance: Patient tolerance of treatment:Fair. Plan: Current Treatment Recommendations: Strengthening, Balance training, Endurance training, Functional mobility training, Transfer training, Gait training, Stair training, Neuromuscular re-education, Safety education & training, Patient/Caregiver education & training, Therapeutic activities, Equipment evaluation, education, & procurement, Home exercise program General Plan: (5x O) Education: Learners: Patient and Family Patient Education: Plan of Care, Precautions/Restrictions, Family Education, Bed Mobility, Equipment Education, Transfers, Gait, Use of Gait Belt, Verbal Exercise Instruction, - Patient Verbalized Understanding, - Patient Requires Continued Education Goals: Patient Goals : None Stated Short Term Goals Time Frame for Short Term Goals: Duration of stay Short Term Goal 1: PT to assess bed mobility when able Short Term Goal 2: Patient to perform sit<>stand transfers with Supervision in order to assist with safety with transfers in home. Short Term Goal 3: Patient to ambulate >/=75 feet with use of RW and Supervision in order to assist with home mobility. Short Term Goal 4: Patient to ambulate up/down 20 foot ramp with use of RW and Supervision in orderto assist with home entry. Care Home Goals Time Frame for Care Home Goals : N/A due to ELOS Following session, patient left in safe position with all fall risk precautions in place. Pt in bedside chair following session, all needs and call light in reach, alarm on. * Randi Burris MD - 02/26/2024 7:34 AM EST Department of Orthopedic Surgery Spine Service Attending Progress Note Subjective: POD#5 patient up with therapy yesterday, reports overall feeling better. His legs felt weak when getting up, but denies leg pain. Denies n/v, CP, SOB. ++BM Potassium WNL Afebrile Vitals VITALS: BP 124/80 Pulse (!) 114 Temp 98.3 F (36.8 C) (Oral) Resp 17 Ht 1.676 m (5' 6 ) Wt86.3 kg (190 lb 3.2 oz) SpO2 93% BMI 30.70 kg/m 24HR INTAKE/OUTPUT: Intake/Output Summary (Last 24 hours) at 02/26/2024 0734 Last data filed at 02/26/2024 0657 Gross per 24 hour Intake -- Output 305 ml Net -305 ml URINARY CATHETER OUTPUT (Chou): External Urinary Catheter-Output (mL): 225 mL DRAIN/TUBE OUTPUT: Closed/Suction Drain Back Accordion-Output (ml): 30 ml PHYSICAL EXAM: Orientation: awake and alert and oriented x 3 Incision: dressing in place, clean, dry, intact Lower Extremity Motor : 5/5 bilateral pedal push/pull except 4/5 left TA (chronic). Able to bend both legs in bed without issue Lower Extremity Sensory: Intact L1-S1 Swelling LE with wraps Flatus: positive LABS: HgB: Lab Results Component Value Date/Time HGB 9.3 02/26/2024 06:22 AM Hemoglobin/Hematocrit: Lab Results Component Value Date/Time HGB 9.3 02/26/2024 06:22 AM HCT 27.7 02/26/2024 06:22 AM BMP: Lab Results Component Value Date/Time NA 134 02/26/2024 06:22 AM K 3.5 02/26/2024 06:22 AM CL 97 02/26/2024 06:22 AM CO2 24 02/26/2024 06:22 AM BUN 21 02/26/2024 06:22 AM CREATININE 1.2 02/26/2024 06:22 AM CALCIUM 8.9 02/26/2024 06:22 AM LABGLOM 60 02/26/2024 06:22 AM GLUCOSE 109 02/26/2024 06:22 AM ASSESSMENT AND PLAN: Post operative day 5 status post L2-5 decompression and noninstrumented fusion 1: Monitor labs and drain output - remove prior to discharge 2: Activity Level: As tolerated. PT/OT, back brace when ambulating 3: Pain Control: Ok 4: Discharge Planning: pending - planning rehab/SNF 5: acute blood loss anemia s/p surgery - hgb improved to 9.3 6: Resume Eliquis 7: potassium replacement protocol - normal today ISSA Najera Patient seen and examined independently by me. Agree with Physician slitter and rewinder note above. Discussed w/ patient's daughter. Continue therapy. SNF at discharge. Randi Burris MD 02/26/2024 2:10 PM * Randa King MD - 02/25/2024 2:25 PM EST INTERNAL MEDICINE Progress Note 02/25/2024 2:25 PM Subjective: Admit Date: 02/21/2024 PCP: Kuns, Opal P, DO Interval History: Events noted. Choked on food last night- Isolated event, no recurrence. Temperature spike this morning temperature 103.4 F. Bp improved, good UO on bumex He is alert, o x3 Objective: Vitals: BP 97/61 Pulse 93 Temp 98.5 F (36.9 C) (Oral) Resp 17 Ht 1.676 m (5' 6 ) Wt 86.3 kg (190 lb 3.2 oz) SpO2 94% BMI 30.70 kg/m General appearance: alert and cooperative with exam, calm HEENT: atraumatic Neck: no adenopathy, no carotid bruit, and no JVD Lungs: diminished breath sounds bibasilar Heart: irregularly irregular rhythm and S1, S2 normal Abdomen: soft, non-tender; bowel sounds normal; no masses, no organomegaly Extremities: edema trace gem LE Neurologic:Alert, oriented to person and place, thought content appropriate Medications: Scheduled Meds: cefepime 2,000 mg IntraVENous Q12H apixaban 5 mg Oral BID lisinopril 2.5 mg Oral Daily thiamine 100 mg Oral Daily folic acid 1 mg Oral Daily magnesium citrate 296 mL Oral Once bumetanide 1 mg Oral Daily midodrine 2.5 mg Oral TID WC bisacodyl 10 mg Oral Daily sennosides-docusate sodium 2 tablet Oral BID allopurinol 300 mg Oral Daily atorvastatin 40 mg Oral Daily carvedilol 6.25 mg Oral BID WC levothyroxine 150 mcg Oral Daily traZODone 50 mg Oral Nightly sodium chloride flush 5-40 mL IntraVENous 2 times per day polyethylene glycol 17 g Oral Daily Continuous Infusions: sodium chloride dextrose Lab Results: CBC: Recent Labs 02/24/24 0404 02/25/24 0438 02/25/24 0719 WBC -- -- 11.7* HGB 8.3* 8.2* 8.8* PLT -- -- 180 BMP: Recent Labs 02/23/24 0339 02/24/24 0404 02/25/24 0438 NA 137 138 134* K 4.3 3.9 2.9* CL 105 104 97* CO2 22* 23 26 BUN 24* 20 17 CREATININE 1.3* 1.2 1.1 GLUCOSE 148* 126* 100 TSH: Lab Results Component Value Date/Time TSH 0.678 02/22/2024 04:12 PM ECHO: Left Ventricle: Moderately reduced left ventricular systolic function with a visually estimated EF of 35 - 40%. Left ventricle size is normal. Normal wall thickness. Normal wall motion. Normal diastolic function. Right Ventricle: Right ventricle is mildly dilated. Aortic Valve: Mildly thickened cusps. Mildly calcified cusps. 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 Tricuspid Valve: Mild to moderate regurgitation. Image quality is technically difficult. Technically difficult study, technically difficult study due to patient's body habitus and procedure performed with the patient in a supine position. COVID-19 & Influenza Combo [[id number]] Collected: 02/25/24 1109 Updated: 02/25/24 1153 Specimen Source: Nasopharyngeal Swab SARS-CoV-2 RNA, RT PCR NOT DETECTED Comment: Influenza A NOT DETECTED Influenza B NOT DETECTED Lactic Acid, Sepsis 1.0 XR CHEST PORTABLE [[id number]] Collected: 02/24/242041 Updated: 02/24/242142 Narrative: 1 view chest x-ray Comparison: None Findings: Esuqarto-jx-smzwpy cardiomegaly. Small left and trace right pleural effusions. Cephalization pulmonary vasculature with diffusely increased interstitial markings and diffuse hazy alveolar opacity. No pneumothorax. Impression: 1. Hxhhbxwg-nr-sflkru cardiomegaly with pulmonary edema and pleural effusions. Findings are consistent with CHF. 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 Status post L2-L5 decompression and posterior spinal fusion. Chronic atrial fibrillation. Nonischemic cardiomyopathy. Chronic HFrEF EF 35-40% Hypothyroidism. H/o alcohol abuse preop, no DT Hypokalemia related to diuretics. Postop fever, query source Follow-up blood cultures, repeat UA. Continue empiric antibiotics as initiated. Cont Bumex, cont coreg ACEI Continue routine postop care, PT/OT Am labs. Randa King MD, MD * Lula Russell SLP - 02/25/2024 1:[address] 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 Per chart review, The patient is a 83-year-old male who is having constant low back pain with radiation of pain into the bilateral legs with numbness. The patient reports symptoms have been present on a chronic basis. Current VAS score 7/10. Activities that aggravate the pain include standing and walking. Activities that help alleviate the pain include rest. Modifying factors include medication management, physical therapy, and injections/RFA. These have provided mild relief with no lasting benefit. He had a prior lumbar surgery with Dr. Calvillo in 2010. Former smoker. S/P L2-5 decompression and noninstrumented fusion 02/20 Past Medical History: Diagnosis Date Arthritis Cancer (HCC) 2003 was in spine ( went through chemo and radioation ) Hyperlipidemia Hypertension Thyroid disease SUBJECTIVE: Spoke with MARK Hinojosa for approval of CSE. Upon arrival, patient sitting upright in bed. Alert and cooperative. Daughter present at bedside. OBJECTIVE: Pain: No pain reported. Current Diet: NPO Respiratory Status: Nasal Canula: 1 LPM Behavioral Observation: Alert CRANIAL NERVE ASSESSMENT CN V (Trigeminal) Closes and Opens Mandible WFL Rotary Jaw Movement WFL CN VII (Facial) Cheeks Hold Food out of Sulci WFL Opens, Closes/Seals, Protrudes, Retracts Lips WFL General Appearance WFL Sensation WFL CN X (Vagus - Pharyngeal) Raises Back of Tongue WFL CN XI (Accessory) Lifts Soft Palate WFL CN XII (Hypoglossal) Elevates Tongue Up and Back WFL Protrusion WFL Lateralizes Tongue WFL Sensation WFL Other Observations Dentition WFL Vocal Quality WFL Cough WFL Patient Evaluated Using: Thin Liquids, Puree, and Coarse Solids Oral Phase: WFL Pharyngeal Phase: Impaired: Suspected Pharyngeal Residue Signs and Symptoms of Laryngeal Penetration/Aspiration: Delayed Cough Functional Oral Intake Scale: Total Oral Intake: 7. Total oral intake with no restrictions Impressions: Patient presents with WFL oral phase with inability to fully discern potential presence of pharyngeal phase deficits without formal instrumentation. Patient with appropriate mastication,manipulation and AP transit observed. Consistent pharyngeal trigger achieved. Patient with delayed c ough x1 following coarse solid textures, suspect pharyngeal residuals. No other overt s/s of aspiration present at bedside, certainly cannot rule out pharyngeal dysfunction at bedside alone. Instrumental evaluation not warranted at this time. Recommend regular diet, thin liquids. Skilled ST services recommended for brief follow up interventions. RECOMMENDATIONS/ASSESSMENT: Instrumental Evaluation: Instrumental evaluation not indicated at this time. Rehabilitation Potential: excellent EDUCATION: Learner: Patient and Family Education: Reviewed results and recommendations of this evaluation, Reviewed diet and strategies, Reviewed signs, symptoms and risks of aspiration, Reviewed ST goals and Plan of Care, Education Related to Potential Risks and Complications Due to Impairment/Illness/Injury, and Home Safety Education Evaluation of Education: Verbalizes understanding PLAN: Skilled MARINE ELECTRICIAN APPRENTICE intervention on acute care 1-3 x per week or until goals met and or patient plateaus infunction. Specific interventions for next session may include: dysphagia therapy PATIENT GOAL: Did not state. Will further assess during treatment. SHORT TERM GOALS: Short Term Goals Time Frame for Short Term Goals: 2 weeks Goal 1: Patient will consume regular diet, thin liquids with stable pulmonary status and incorporation of trained compensatory strategies to assist with nutrition/hydration measures Goal 2: Considerations for an instrumental evaluation should adverse changes be conveyed in direct relation to the safety/efficency of the swallow mechanism. Dysphagia Therapy: Following completion of clinical swallow evaluation, transitioned to skilled service provision withdirect education provided re: the following: -Anatomy/physiology of swallow mechanism -Rationale for recommended diet level -Compensatory swallowing strategies (full upright positioning, small bite/sips, slow rate for intake, alternating solids/liquids) -S/s aspiration (immediate/delayed coughing, throat clearing, wet vocal quality) with potential implications (pneumonia, recurrent/prolonged hospitalizations, medical decline). -Needs to engage in comprehensive oral care in attempts to reduce potential bacteria colonization/infection -Ambulation with staffing (as able) to assist with mobility and overall pulmonary health SENIOR CARE GOALS: No LTGs established due to short ELOS. Lula Russell M.A., [facility]-MARINE ELECTRICIAN APPRENTICE [id number] * Gustabo May PA - 02/25/2024 8:05 AM EST Department of Orthopedic Surgery Spine Service Attending Progress Note Subjective: POD#4 patient not out of bed last 2 days. C/o sharp pain in back when getting up. Denies leg pain. Denies SOB. Daughter is upset. Febrile this am, testing ordered with IM +BM Vitals VITALS: BP 102/66 Pulse 94 Temp (!) 102.4 F (39.1 C) (Rectal) Comment: tylenol given Resp 20 Ht 1.676 m (5' 6 ) Wt 86.3 kg (190 lb 3.2 oz) SpO2 94% BMI 30.70 kg/m 24HR INTAKE/OUTPUT: Intake/Output Summary (Last 24 hours) at 02/25/2024 0805 Last data filed at 02/25/2024 0600 Gross per 24 hour Intake 250 ml Output 4350 ml Net -4100 ml URINARY CATHETER OUTPUT (Chou): External Urinary Catheter-Output (mL): 700 mL DRAIN/TUBE OUTPUT: Closed/Suction Drain Back Accordion-Output (ml): 30 ml PHYSICAL EXAM: Orientation: awake and alert and oriented x 3 Incision: dressing in place, clean, dry, intact Lower Extremity Motor : 5/5 bilateral pedal push/pull except 4/5 left TA (chronic) Lower Extremity Sensory: Intact L1-S1 Swelling LE with wraps Flatus: positive LABS: HgB: Lab Results Component Value Date/Time HGB 8.8 02/25/2024 07:19 AM Hemoglobin/Hematocrit: Lab Results Component Value Date/Time HGB 8.8 02/25/2024 07:19 AM HCT 27.1 02/25/2024 07:19 AM BMP: Lab Results Component Value Date/Time NA 134 02/25/2024 04:38 AM K 2.9 02/25/2024 04:38 AM CL 97 02/25/2024 04:38 AM CO2 26 02/25/2024 04:38 AM BUN 17 02/25/2024 04:38 AM CREATININE 1.1 02/25/2024 04:38 AM CALCIUM 8.5 02/25/2024 04:38 AM LABGLOM 67 02/25/2024 04:38 AM GLUCOSE 100 02/25/2024 04:38 AM ASSESSMENT AND PLAN: Post operative day 4 status post L2-5 decompression and noninstrumented fusion 1: Monitor labs and drain output 2: Activity Level: As tolerated. PT/OT, back brace when ambulating 3: Pain Control: Ok 4: Discharge Planning: pending - planning rehab/SNF 5: acute blood loss anemia s/p surgery - hgb improved to 8.8 6: Resume Eliquis 7: potassium replacement protocol ISSA Najera * Misa Solorio, OT - 02/24/2024 2:07 PM EST [facility] ICU STEPDOWN TELEMETRY 4K Occupational Therapy Daily Note Discharge Recommendations: Subacute/residential facility Equipment Recommendations: No continue to monitor Time In: 830 Time Out: 908 Timed Code Treatment Minutes: 38 Minutes Minutes: 38 Date: 02/24/2024 Patient Name: Tavo Wallis, Gender: male Room: [address] [place] [address] : 1940 (83 y.o.) Referring Practitioner: Randi Burris MD Diagnosis: Lumbar stenosis with neurogenic claudication Additional Pertinent Hx: The patient is a 83-year-old male who is having constant low back pain with radiation of pain into the bilateral legs with numbness. The patient reports symptoms have been present on a chronic basis. Current VAS score 7/10. Activities that aggravate the pain include standing and walking. Activities that help alleviate the pain include rest. Modifying factors include medication management, physical therapy, and injections/RFA. These have provided mild relief with no lasting benefit. He had a prior lumbar surgery with Dr. Calvillo in 2010. Former smoker. S/P L2-5 decompression and noninstrumented fusion 02/20 Restrictions/Precautions: Restrictions/Precautions: General Precautions, Fall Risk Required Braces or Orthoses Spinal: (LSO when up) Position Activity Restriction Spinal Precautions: No Bending, No Lifting, No Twisting Other Position/Activity Restrictions: hemovac x1 Social/Functional History: Lives With: Alone Type of Home: House Home Layout: One level Home Access: Ramped entrance Home Equipment: Cane, Walker - Rolling, Walker - 4-Wheeled, Wheelchair - Manual Bathroom Shower/Tub: Walk-in shower Bathroom Toilet: Standard Bathroom Equipment: Commode Prior Level of Assist for ADLs: Independent Prior Level of Assist for Homemaking: Independent Homemaking Responsibilities: Yes Prior Level of Assist for Transfers: Independent Prior Level of Assist for Ambulation: Independent household ambulator, with or without device Has the patient had two or more falls in the past year or any fall with injury in the past year?: Yes (~5) Active Otorhinolaryngologist: Yes (Daughter able to transport until cleared to drive again.) Mode of Transportation: Truck 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 son lives on same property but behind patient. Family lives near by and comes often SUBJECTIVE: Nurse approved OT treatment. Pt with PT on arrival finishing up session and ambulating in room. Pt demos incontinent episode of bladder during mobility and is agreeable to wash up after PT is complete. PAIN: does not c/o pain but does demo some facial grimacing throughout session. Vitals: Heart Rate: low 100s at rest, pt becomes tachy with standing. Nurse present and aware COGNITION: Slow Processing, Decreased Problem Solving, and Decreased Safety Awareness ADL: Grooming: Minimal Assistance. Bathing: Maximum Assistance. Pt completes sponge bath seated in recliner chair. Assist for thoroughness of UB, assist for legs and assist for pratima care in standing required. Upper Extremity Dressing: Maximum Assistance. 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 Lower Extremity Dressing: Maximum Assistance. To don pull up over feet and hips. Footwear Management: Dependent. To don fern hose and socks Toileting: Dependent. External catheter in place. Total assist for clean up after incontinent episode of bladder in standing . BALANCE: Sitting Balance: Stand By Assistance. Standing Balance: Minimal Assistance, X 1, with cues for safety, with verbal cues . With b UE support. Unable to release Ues from walker to assist with standing ADLs. TRANSFERS: Sit to Stand: Minimal Assistance, X 1, with increased time for completion, cues for hand placement,with verbal cues. X3 trials this session during bath/dressing routine Stand to Sit: Minimal Assistance, X 1, cues for hand placement, with verbal cues. FUNCTIONAL MOBILITY: Assistive Device: Rolling Walker Assist Level: Contact Guard Assistance, X 1, with verbal cues , and with increased time for completion. Distance: x2 feet forward and back, cues for upright posture required ASSESSMENT: Activity Tolerance: Patient tolerance of treatment: Fair treatment toleranceSOB noted, increased time for rest breaks needed. Plan: Times Per Week: 6x Current Treatment Recommendations: Balance training, Strengthening, Functional mobility training, Endurance training, Safety education & training, Patient/Caregiver education & training, Painmanagement, Cognitive reorientation, Equipment evaluation, education, & procurement, Self-Care / ADL, Home management training Education: Learners: Patient Role of OT, Plan of Care, and ADL's Goals Short Term Goals Time Frame for Short Term Goals: until discharge Short Term Goal 1: Patient will safely complete various functional transfers with supervision and 0-1 cues for spinal precautions to improve safety in living environment. Short Term Goal 2: Patient will improve functional ambulation to/from bathroom with SBA and LRAD, 0-1 vcs for safety in prep for return to PLOF. Short Term Goal 3: Patient will complete UB/LB dressing/bathing with CGA and use of LHAE prn to maintain spinal precautions to improve ease in BADL routine. Short Term Goal 4: Patient will tolerate standing 7-12 minutes with BUE release reaching ouside base of support with SBA to complete sink side grooming. Patternmaker Wood Goals Time Frame for Patternmaker Wood Goals : None due to ELOS Following session, patient left in safe position with all fall risk precautions in place. * Randa King MD - 02/24/2024 11:43 AM EST INTERNAL MEDICINE Progress Note 02/24/2024 11:43 AM Subjective: Admit Date: 02/21/2024 PCP: Opal Ga, Interval History: Daughter reports confusion, pt has a h/o mod to heavy ETOH use preop, no shakes, no hallucinations Bp improved, good UO on bumex He is alert, o x3 Objective: Vitals: BP 122/72 Pulse (!) 107 Temp 99.1 F (37.3 C) (Oral) Resp 18 Ht 1.676 m (5' 6 ) Wt86.3 kg (190 lb 3.2 oz) SpO2 94% BMI 30.70 kg/m General appearance: alert and cooperative with exam, calm HEENT: atraumatic Neck: no adenopathy, no carotid bruit, and no JVD Lungs: diminished breath sounds bibasilar Heart: irregularly irregular rhythm and S1, S2 normal Abdomen: soft, non-tender; bowel sounds normal; no masses, no organomegaly Extremities: edema trace gem LE Neurologic: Mental status: Alert, oriented, thought content appropriate Medications: Scheduled Meds: apixaban 5 mg Oral BID bumetanide 1 mg Oral Daily midodrine 2.5 mg Oral TID WC bisacodyl 10 mg Oral Daily sennosides-docusate sodium 2 tablet Oral BID allopurinol 300 mg Oral Daily atorvastatin 40 mg Oral Daily carvedilol 6.25 mg Oral BID WC levothyroxine 150 mcg Oral Daily potassium chloride 20 mEq Oral Daily traZODone 50 mg Oral Nightly sodium chloride flush 5-40 mL IntraVENous 2 times per day polyethylene glycol 17 g Oral Daily Continuous Infusions: sodium chloride dextrose Lab Results: CBC: Recent Labs 02/22/24 1612 02/23/24 0339 02/24/24 0404 HGB 9.1* 8.0* 8.3* BMP: Recent Labs 02/22/24 0337 02/23/24 0339 02/24/24 0404 NA 134* 137 138 K 4.2 4.3 3.9 CL 101 105 104 CO2 22* 22* 23 BUN 18 24* 20 CREATININE 0.9 1.3* 1.2 GLUCOSE 165* 148* 126* TSH: Lab Results Component Value Date/Time TSH 0.678 02/22/2024 04:12 PM ECHO: Left Ventricle: Moderately reduced left ventricular systolic function with a visually estimated EF of 35 - 40%. Left ventricle size is normal. Normal wall thickness. Normal wall motion. Normal diastolic function. Right Ventricle: Right ventricle is mildly dilated. Aortic Valve: Mildly thickened cusps. Mildly calcified cusps. 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 Tricuspid Valve: Mild to moderate regurgitation. Image quality is technically difficult. Technically difficult study, technically difficult study due to patient's body habitus and procedure performed with the patient in a supine position. 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 Status post L2-L5 decompression and posterior spinal fusion. Chronic atrial fibrillation. Nonischemic cardiomyopathy. Chronic HFrEF EF 35-40% Hypothyroidism. H/o alcohol abuse preop, no DT Keep on telemetry bed Cont Bumex, cont coreg ACEI Continue routine postop care, PT/OT Am labs. Randa King MD, * Ann ePrez PTA - 02/24/2024 7:50 AM EST [facility] INPATIENT PHYSICAL THERAPY DAILY NOTE [facility] ICU STEPDOWN TELEMETRY 4K - 4K-25/025-A Discharge Recommendations: Subacte/Longterm Facility Equipment Recommendations: No (Patient has RW, cane and wheelchair) Time In: 0748 Time Out: 0831 Timed Code Treatment Minutes: 43 Minutes Minutes: 43 Date: 02/24/2024 Patient Name: Tavo Wallis, Gender: male : 1940 (83 y.o.) Referring Practitioner: Gustabo May PA Diagnosis: Lumbar stenosis with neurogenic claudication Additional Pertinent Hx: The patient is a 83-year-old male who is having constant low back pain with radiation of pain into the bilateral legs with numbness. The patient reports symptoms have been present on a chronic basis. Current VAS score 7/10. Activities that aggravate the pain include standing and walking. Activities that help alleviate the pain include rest. Modifying factors include medication management, physical therapy, and injections/RFA. These have provided mild relief with no lasting benefit. He had a prior lumbar surgery with Dr. Calvillo in 2010. Former smoker. S/P L2-5 decompression and noninstrumented fusion 02/20 Prior Level of Function: Lives With: Alone Type of Home: House Home Layout: One level Home Access: Ramped entrance Home Equipment: Cane, Walker - Rolling, Walker - 4-Wheeled, Wheelchair - Manual Bathroom Shower/Tub: Walk-in shower Bathroom Toilet: Standard Bathroom Equipment: Commode Prior Level of Assist for ADLs: Independent Prior Level of Assist for Homemaking: Independent Homemaking Responsibilities: Yes Prior Level of Assist for Transfers: Independent Active Otorhinolaryngologist: Yes (Daughter able to transport until cleared to drive again.) 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 son lives on same property but behind patient. Family lives near by and comes often Prior Level of Assist for Ambulation: Independent household ambulator, with or without device Has the patient had two or more falls in the past year or any fall with injury in the past year?: Yes (~5) Restrictions/Precautions: Restrictions/Precautions: General Precautions, Fall Risk Required Braces or Orthoses Spinal: (LSO when up) Position Activity Restriction Spinal Precautions: No Bending, No Lifting, No Twisting Other Position/Activity Restrictions: hemovac x1 SUBJECTIVE: Pt in bed upon arrival, and agrees to therapy, RN approved session, Pt A&O X 06/08, Trung confusion, pts daughter Abigail present during session, Telesitter present PAIN: 07/14: back Vitals: pt on cont monitor during session Vitals: 02/24/24 1038 BP: 122/72 Pulse: (!) 107 Resp: Temp: 99.1 F (37.3 C) SpO2: 94% Pt able to state 1/3 precautions/restrictions. education provided OBJECTIVE: Bed Mobility: Rolling to Left: Moderate Assistance, with verbal cues , with increased time for completion Supine to Sit: Moderate Assistance, with head of bed flat, with verbal cues , with increased time for completion Scooting: Moderate Assistance, with verbal cues Transfers: Sit to Stand: Minimal Assistance, with increased time for completion, cues for hand placement, withverbal cues, decreased force production, cues for ant weight shift Stand to Sit:Minimal Assistance, with increased time for completion, cues for hand placement, with verbal cues, cues for alignment to surface Ambulation: Contact Guard Assistance, Minimal Assistance, with verbal cues , with increased time for completion Distance: 12ft Surface: Level Tile Device: Rolling Walker Gait Deviations: Forward Flexed Posture, Slow Rafaela, Decreased Step Length Bilaterally, DecreasedGait Speed, Decreased Heel Strike Bilaterally, Unsteady Gait, and Increased reliance on assistive device, shirt shuffled steps, heavy reliance on AD, pt leans to R side Stairs: Not Tested Balance: Pt statically stood ~4mins, incontinent of urine, assist needed for clean up prior to resume ambulation Exercise: Patient was guided in 1 set(s) 10 reps of exercises to both lower extremities: Ankle Pumps, Glute Sets, Quad Sets,, PPT, Vacuums. . Exercises were completed for increased independence with functional mobility. Functional Outcome Measures: [facility] (6 CLICK) BASIC MOBILITY AM-[facility] Inpatient Mobility Raw Score : 14 AM-[facility] Inpatient T-Scale Score : 38.1 Modified Flaco Scale: Not Applicable ASSESSMENT: Assessment: Patient progressing toward established goals. Pt demonstrates impairments with strength, balance, endurance, activity tolerance, independence, requires hands on assistance for safety withmobility and would benefit from continued skilled PT improve these impairments, to maximize independence, pt will greatly benefit from continued skilled PT. Activity Tolerance: Patient tolerance of treatment:Good. Plan: Current Treatment Recommendations: Strengthening, Balance training, Endurance training, Functional mobility training, Transfer training, Gait training, Stair training, Neuromuscular re-education, Safety education & training, Patient/Caregiver education & training, Therapeutic activities, Equipment evaluation, education, & procurement, Home exercise program General Plan: (5x O) Education: Learners: Patient Patient Education: Plan of Care, Precautions/Restrictions, Education Related to Diagnosis, Bed Mobility, Transfers, Gait, Verbal Exercise Instruction Goals: Patient Goals : None Stated Short Term Goals Time Frame for Short Term Goals: Duration of stay Short Term Goal 1: PT to assess bed mobility when able Short Term Goal 2: Patient to perform sit<>stand transfers with Supervision in order to assist with safety with transfers in home. Short Term Goal 3: Patient to ambulate >/=75 feet with use of RW and Supervision in order to assist with home mobility. Short Term Goal 4: Patient to ambulate up/down 20 foot ramp with use of RW and Supervision in orderto assist with home entry. Care Home Goals Time Frame for Care Home Goals : N/A due to ELOS Following session, patient left in safe position with all fall risk precautions in place. * Gustabo May PA - 02/24/2024 7:05 AM EST Department of Orthopedic Surgery Spine Service Attending Progress Note Subjective: POD#2 A&Ox3, BP improved, swelling in LE C/o back pain, c/o ankle pain He did not get out of bed yesterday No BM Chou removed, external cath in place Echo completed yesterday Drain outputs improved Vitals VITALS: BP 129/68 Pulse (!) 105 Temp 98.8 F (37.1 C) (Oral) Resp 17 Ht 1.676 m (5' 6 ) Wt86.3 kg (190 lb 3.2 oz) SpO2 94% BMI 30.70 kg/m 24HR INTAKE/OUTPUT: Intake/Output Summary (Last 24 hours) at 02/24/2024 0705 Last data filed at 02/24/2024 0632 Gross per 24 hour Intake 3743.25 ml Output 2890 ml Net 853.25 ml URINARY CATHETER OUTPUT (Chou): External Urinary Catheter-Output (mL): 800 mL DRAIN/TUBE OUTPUT: Closed/Suction Drain Back Accordion-Output (ml): 70 ml PHYSICAL EXAM: Orientation: awake and alert and oriented x 3 Incision: dressing in place, clean, dry, intact Lower Extremity Motor : 5/5 bilateral pedal push/pull except 4/5 left TA (chronic) Lower Extremity Sensory: Intact L1-S1 Flatus: positive LABS: HgB: Lab Results Component Value Date/Time HGB 8.3 02/24/2024 04:04 AM Hemoglobin/Hematocrit: Lab Results Component Value Date/Time HGB 8.3 02/24/2024 04:04 AM HCT 26.3 02/24/2024 04:04 AM BMP: Lab Results Component Value Date/Time NA 138 02/24/2024 04:04 AM K 3.9 02/24/2024 04:04 AM CL 104 02/24/2024 04:04 AM CO2 23 02/24/2024 04:04 AM BUN 20 02/24/2024 04:04 AM CREATININE 1.2 02/24/2024 04:04 AM CALCIUM 8.6 02/24/2024 04:04 AM LABGLOM 60 02/24/2024 04:04 AM GLUCOSE 126 02/24/2024 04:04 AM ASSESSMENT AND PLAN: Post operative day 3 status post L2-5 decompression and noninstrumented fusion 1: Monitor labs and drain output 2: Activity Level: As tolerated. PT/OT, back brace when ambulating 3: Pain Control: Ok 4: Discharge Planning: pending - planning rehab/SNF 5: acute blood loss anemia s/p surgery - hgb improved to 8.3 6: Resume ISSA Boothe * Randa King MD - 02/23/2024 2:30 PM EST INTERNAL MEDICINE Progress Note 02/23/2024 6:01 PM Subjective: Admit Date: 02/21/2024 PCP: Opal Ga, DO Interval History: Bp improved, responded to IVF alert, o x3 Objective: Vitals: BP (!) 159/77 Pulse 87 Temp 98.7 F (37.1 C) (Oral) Resp 18 Ht 1.676 m (5' 6 ) Wt 86.3 kg (190 lb 3.2 oz) SpO2 92% BMI 30.70 kg/m General appearance: alert and cooperative with exam HEENT: Head: atraumatic Neck: no adenopathy, no carotid bruit, and no JVD Lungs: diminished breath sounds bibasilar Heart: irregularly irregular rhythm and S1, S2 normal Abdomen: soft, non-tender; bowel sounds normal; no masses, no organomegaly Extremities: edema trace gem LE Neurologic: Mental status: Alert, oriented, thought content appropriate Medications: Scheduled Meds: bisacodyl 10 mg Oral Daily sennosides-docusate sodium 2 tablet Oral BID midodrine 10 mg Oral TID WC allopurinol 300 mg Oral Daily atorvastatin 40 mg Oral Daily [Held by provider] bumetanide 1 mg Oral Daily carvedilol 6.25 mg Oral BID WC levothyroxine 150 mcg Oral Daily potassium chloride 20 mEq Oral Daily traZODone 50 mg Oral Nightly sodium chloride flush 5-40 mL IntraVENous 2 times per day polyethylene glycol 17 g Oral Daily Continuous Infusions: sodium chloride dextrose Lab Results: CBC: Recent Labs 02/22/24 0337 02/22/24 1612 02/23/24 0339 HGB 9.5* 9.1* 8.0* BMP: Recent Labs 02/22/24 0337 02/23/24 0339 NA 134* 137 K 4.2 4.3 CL 101 105 CO2 22* 22* BUN 18 24* CREATININE 0.9 1.3* GLUCOSE 165* 148* TSH: Lab Results Component Value Date/Time TSH 0.678 02/22/2024 04:12 PM Assessment and Plan: Lumbar L2-L5 DDD and lumbar spinal stenosis with neurogenic claudication. Status post L2-L5 decompression and posterior spinal fusion. Chronic atrial fibrillation. Nonischemic cardiomyopathy. Hypothyroidism. Continue telemetry monitoring. Dc IVF, f/up ECHO Resume coreg Continue routine postop care, PT/OT Am labs. Randa King MD, * Ioana Steele RDCS - 02/23/2024 11:48 AM EST Echo completed at bedside. ROW Dr. Tenorio to read. At bedside 11:13-11:48. * Girish Stern - 02/23/2024 11:25 AM EST Spiritual Health History and Assessment/Progress Note [facility] Loneliness/Social Isolation, , , Name: Tavo Wallis Age: 83 y.o. Sex: male Language: Bermudian Nondenominational: None Lumbar stenosis with neurogenic claudication Date: 02/23/2024 Total Time Calculated: (P) 8 min [facility]K Referral/Consult From: Nurse Encounter Overview/Reason: Loneliness/Social Isolation Service Provided For: Patient Sasha, Belief, Meaning: Patient unable to assess at this time Family/Friends No family/friends present Importance and Influence: Patient unable to assess at this time Family/Friends No family/friends present Community: Patient Other: Patient was in physical therapy. The patient was too tired to chat at this moment. Family/Friends No family/friends present Assessment and Plan of Care: Patient Interventions include: Facilitated expression of thoughts and feelings Family/Friends Interventions include: No family/friends present Patient Plan of Care: Spiritual Care available upon further referral Family/Friends Plan of Care: No family/friends present * Ioana Steele RDCS - 02/23/2024 10:34 AM EST Therapy just started working with patient. Will wainwright back to complete echo once therapy is completed. * Mimi Solo OT - 02/23/2024 10:29 AM EST [facility] ICU STEPDOWN TELEMETRY 4K Occupational Therapy Daily Note Discharge Recommendations: ECF with OT and 24 hour assistance or supervision Equipment Recommendations: No continue to monitor Time In: 1029 Time Out: 1053 Timed Code Treatment Minutes: 24 Minutes Minutes: 24 Date: 02/23/2024 Patient Name: Tavo Wallis, Gender: male Room: [address] [place] [address] : 1940 (83 y.o.) Referring Practitioner: Randi Burris MD Diagnosis: Lumbar stenosis with neurogenic claudication Additional Pertinent Hx: The patient is a 83-year-old male who is having constant low back pain with radiation of pain into the bilateral legs with numbness. The patient reports symptoms have been present on a chronic basis. Current VAS score 7/10. Activities that aggravate the pain include standing and walking. Activities that help alleviate the pain include rest. Modifying factors include medication management, physical therapy, and injections/RFA. These have provided mild relief with no lasting benefit. He had a prior lumbar surgery with Dr. Calvillo in 2010. Former smoker. S/P L2-5 decompression and noninstrumented fusion 02/20 Restrictions/Precautions: Restrictions/Precautions: General Precautions, Fall Risk Required Braces or Orthoses Spinal: (LSO when up) Position Activity Restriction Spinal Precautions: No Bending, No Lifting, No Twisting Other Position/Activity Restrictions: hemovac x1 Social/Functional History: Lives With: Alone Type of Home: House Home Layout: One level Home Access: Ramped entrance Home Equipment: Cane, Walker - Rolling, Walker - 4-Wheeled, Wheelchair - Manual Bathroom Shower/Tub: Walk-in shower Bathroom Toilet: Standard Bathroom Equipment: Commode Prior Level of Assist for ADLs: Independent Prior Level of Assist for Homemaking: Independent Homemaking Responsibilities: Yes Prior Level of Assist for Transfers: Independent Prior Level of Assist for Ambulation: Independent household ambulator, with or without device Has the patient had two or more falls in the past year or any fall with injury in the past year?: Yes (~5) Active Otorhinolaryngologist: Yes (Daughter able to transport until cleared to drive again.) Mode of Transportation: Truck 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 son lives on same property but behind patient. Family lives near by and comes often SUBJECTIVE: RN approved session, patient seated up in recliner upon OT arrival and agreeable to tx.Patient A & O x 3 and able to recall 2/3 spinal precautions with patient re-edu and affect on ADLs. Telesitter in room. Bed alarm activated at end of session. PAIN: occasional facial grimacing from back pain; did not rate. Vitals: Vitals not assessed per clinical judgement, see nursing flowsheet Oxygen: on room air with O2 >90% t/o all tx. COGNITION: Decreased Recall, Decreased Insight, Decreased Problem Solving, Decreased Safety Awareness, and Impulsive ADL: Grooming: Stand By Assistance. After s/u to complete oral care seated in recliner. Cues for sequencing task Footwear Management: Maximum Assistance. To doff/don slipper socks within spinal precautions. Edu on alternate tech . -MAX A with increased time to don lumbar corset due to initially not wrapping around patient fully to fasten. IADL: Not Tested BALANCE: Sitting Balance: Stand By Assistance. Standing Balance: Contact Guard Assistance, Minimal Assistance. With use of 2 w/w for support. BED MOBILITY: Sit to Supine: Maximum Assistance, X 1 with cues for tech and increased time to position in bed forcomfort and pressure relief. TRANSFERS: Sit to Stand: Minimal Assistance. From recliner with cues for hand placement FUNCTIONAL MOBILITY: Assistive Device: Rolling Walker Assist Level: Contact Guard Assistance. Distance: from recliner to EOB Shuffling feet with increased time to complete. Modified [place] Scale: Not Applicable ASSESSMENT: Activity Tolerance: Patient tolerance of treatment: Good treatment tolerance Plan: Times Per Week: 6x Current Treatment Recommendations: Balance training, Strengthening, Functional mobility training, Endurance training, Safety education & training, Patient/Caregiver education & training, Painmanagement, Cognitive reorientation, Equipment evaluation, education, & procurement, Self-Care / ADL, Home management training Education: Learners: Patient Role of OT, Plan of Care, ADL's, Precautions, Reviewed Prior Education, Importance of Increasing Activity, Fall Prevention, and Assistive Device Safety Goals Short Term Goals Time Frame for Short Term Goals: until discharge Short Term Goal 1: Patient will safely complete various functional transfers with supervision and 0-1 cues for spinal precautions to improve safety in living environment. Short Term Goal 2: Patient will improve functional ambulation to/from bathroom with SBA and LRAD, 0-1 vcs for safety in prep for return to PLOF. Short Term Goal 3: Patient will complete UB/LB dressing/bathing with CGA and use of LHAE prn to maintain spinal precautions to improve ease in BADL routine. Short Term Goal 4: Patient will tolerate standing 7-12 minutes with BUE release reaching ouside base of support with SBA to complete sink side grooming. Care Home Goals Time Frame for Care Home Goals : None due to ELOS Following session, patient left in safe position with all fall risk precautions in place. * Ann Perez PTA - 02/23/2024 9:11 AM EST [facility] INPATIENT PHYSICAL THERAPY DAILY NOTE [facility] ICU STEPDOWN TELEMETRY 4K - 4K-25/025-A Discharge Recommendations: Subacte/Longterm Facility Equipment Recommendations: No (Patient has RW, cane and wheelchair) Time In: 907 Time Out: 947 Timed Code Treatment Minutes: 40 Minutes Minutes: 40 Date: 02/23/2024 Patient Name: Tavo Wallis, Gender: male : 1940 (83 y.o.) Referring Practitioner: Gustabo May PA Diagnosis: Lumbar stenosis with neurogenic claudication Additional Pertinent Hx: The patient is a 83-year-old male who is having constant low back pain with radiation of pain into the bilateral legs with numbness. The patient reports symptoms have been present on a chronic basis. Current VAS score 7/10. Activities that aggravate the pain include standing and walking. Activities that help alleviate the pain include rest. Modifying factors include medication management, physical therapy, and injections/RFA. These have provided mild relief with no lasting benefit. He had a prior lumbar surgery with Dr. Calvillo in 2010. Former smoker. S/P L2-5 decompression and noninstrumented fusion 02/20 Prior Level of Function: Lives With: Alone Type of Home: House Home Layout: One level Home Access: Ramped entrance Home Equipment: Cane, Walker - Rolling, Walker - 4-Wheeled, Wheelchair - Manual Bathroom Shower/Tub: Walk-in shower Bathroom Toilet: Standard Bathroom Equipment: Commode Prior Level of Assist for ADLs: Independent Prior Level of Assist for Homemaking: Independent Homemaking Responsibilities: Yes Prior Level of Assist for Transfers: Independent Active Otorhinolaryngologist: Yes (Daughter able to transport until cleared to drive again.) 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 son lives on same property but behind patient. Family lives near by and comes often Prior Level of Assist for Ambulation: Independent household ambulator, with or without device Has the patient had two or more falls in the past year or any fall with injury in the past year?: Yes (~5) Restrictions/Precautions: Restrictions/Precautions: General Precautions, Fall Risk Required Braces or Orthoses Spinal: (LSO when up) Position Activity Restriction Spinal Precautions: No Bending, No Lifting, No Twisting Other Position/Activity Restrictions: hemovac x1 SUBJECTIVE: Pt in bed upon arrival, and agrees to therapy, RN approved session, Pt A&O X /, Pt pleasant and cooperative, Telesitter present PAIN: dull and heavy 09/13: back and L heel/LE Vitals: pt on cont monitor during session Vitals: 02/23/24 0727 BP: (!) 91/52 Pulse: 84 Resp: 17 Temp: 98.4 F (36.9 C) SpO2: 98% OBJECTIVE: Bed Mobility: Rolling to Left: Moderate Assistance, with head of bed flat, with rail, with verbal cues , with increased time for completion Supine to Sit: Moderate Assistance, with head of bed flat, with rail, with verbal cues , with increased time for completion Scooting: Moderate Assistance, with head of bed flat, with verbal cues , with increased time for completion Transfers: Sit to Stand: Contact Guard Assistance, with increased time for completion, cues for hand placement, with verbal cues, decreased force production Stand to Sit:Contact Guard Assistance, cues for hand placement, with verbal cues Ambulation: Contact Guard Assistance, Minimal Assistance, with cues for safety, with verbal cues , with increased time for completion Distance: 16ft Surface: Level Tile Device: Rolling Walker Gait Deviations: Forward Flexed Posture, Slow Rafaela, Decreased Step Length Bilaterally, DecreasedWeight Shift Left, Lean to Left, Decreased Gait Speed, Decreased Heel Strike Bilaterally, DecreasedFoot Clearance Right, Decreased Foot Clearance Left, Wide Base of Support, Unsteady Gait, DecreasedTerminal Knee Extension, and Increased reliance on assistive device, reporting fatigue in gem UEs, jack R Stairs: Not Tested Balance: Not Tested Exercise: Patient was guided in 1 set(s) 10 reps of exercises to both lower extremities: Ankle Pumps, Glute Sets, Quad Sets, Isometric Hip Adduction, PPT, Vacuums. Exercises were completed for increased independence with functional mobility. Functional Outcome Measures: [facility] (6 CLICK) BASIC MOBILITY AM-[facility] Inpatient Mobility Raw Score : 14 AM-[facility] Inpatient T-Scale Score : 38.1 Modified [place] Scale: Not Applicable ASSESSMENT: Assessment: Patient progressing toward established goals. Pt demonstrates impairments with strength, balance, endurance, activity tolerance, independence, requires hands on assistance for safety withmobility and would benefit from continued skilled PT improve these impairments, to maximize independence, to prevent falls and ensure safety with mobility, pt will greatly benefit from continued skilled PT. Activity Tolerance: Patient tolerance of treatment:Fair. Plan: Current Treatment Recommendations: Strengthening, Balance training, Endurance training, Functional mobility training, Transfer training, Gait training, Stair training, Neuromuscular re-education, Safety education & training, Patient/Caregiver education & training, Therapeutic activities, Equipment evaluation, education, & procurement, Home exercise program General Plan: (5x O) Education: Learners: Patient Patient Education: Plan of Care, Precautions/Restrictions, Education Related to Diagnosis, Bed Mobility, Transfers, Gait, Verbal Exercise Instruction Goals: Patient Goals : None Stated Short Term Goals Time Frame for Short Term Goals: Duration of stay Short Term Goal 1: PT to assess bed mobility when able Short Term Goal 2: Patient to perform sit<>stand transfers with Supervision in order to assist with safety with transfers in home. Short Term Goal 3: Patient to ambulate >/=75 feet with use of RW and Supervision in order to assist with home mobility. Short Term Goal 4: Patient to ambulate up/down 20 foot ramp with use of RW and Supervision in orderto assist with home entry. [employer] Goals Time Frame for [employer] Goals : N/A due to ELOS Following session, patient left in safe position with all fall risk precautions in place. * Mani Hannon PA-C - 02/23/2024 6:39 AM EST Department of Orthopedic Surgery Spine Service Attending Progress Note Subjective: POD#2 Patient confused this am, but able to answer all questions appropriately. C/o back pain. Reports he ambulated with PT yesterday. No BM Vitals VITALS: BP 101/60 Pulse 78 Temp 97.8 F (36.6 C) (Axillary) Resp 16 Ht 1.676 m (5' 6 ) Wt 86.3 kg (190 lb 3.2 oz) SpO2 97% BMI 30.70 kg/m 24HR INTAKE/OUTPUT: Intake/Output Summary (Last 24 hours) at 02/23/2024 0639 Last data filed at 02/23/2024 0438 Gross per 24 hour Intake 3061.16 ml Output 1295 ml Net 1766.16 ml URINARY CATHETER OUTPUT (Chou): External Urinary Catheter-Output (mL): 900 mL (emptied) DRAIN/TUBE OUTPUT: Closed/Suction Drain Back Accordion-Output (ml): 30 ml (emptied) PHYSICAL EXAM: Orientation: awake and alert, cooperative. States he is at [facility] for back surgery, knows his surgeons name but states its 1984. Incision: dressing in place, clean, dry, intact Lower Extremity Motor : 5/5 bilateral pedal push/pull except 4/5 left TA (chronic) Lower Extremity Sensory: Intact L1-S1 Flatus: positive LABS: HgB: Lab Results Component Value Date/Time HGB 8.0 02/23/2024 03:39 AM Hemoglobin/Hematocrit: Lab Results Component Value Date/Time HGB 8.0 02/23/2024 03:39 AM HCT 25.3 02/23/2024 03:39 AM BMP: Lab Results Component Value Date/Time NA 137 02/23/2024 03:39 AM K 4.3 02/23/2024 03:39 AM CL 105 02/23/2024 03:39 AM CO2 22 02/23/2024 03:39 AM BUN 24 02/23/2024 03:39 AM CREATININE 1.3 02/23/2024 03:39 AM CALCIUM 8.4 02/23/2024 03:39 AM LABGLOM 55 02/23/2024 03:39 AM GLUCOSE 148 02/23/2024 03:39 AM ASSESSMENT AND PLAN: Post operative day 2 status post L2-5 decompression and noninstrumented fusion 1: Monitor labs and drain output 2: Activity Level: As tolerated. PT/OT, back brace when ambulating 3: Pain Control: Ok 4: Discharge Planning: pending - planning rehab/SNF 5: acute blood loss anemia s/p surgery - hgb 8.0 6: Remove chou today Mani Hannon PA-C * Virginia Ruiz, PT - 02/22/2024 10:44 AM EST [facility] INPATIENT PHYSICAL THERAPY EVALUATION [facility] ICU STEPDOWN TELEMETRY 4K - 4K-25/025-A Discharge Recommendations: Continue to assess pending progress, Subacute/Longterm Facility Equipment Recommendations: No (Patient has RW, cane and wheelchair) Time In: 1007 Time Out: 1035 Timed Code Treatment Minutes: 15 Minutes Minutes: 28 Date: 02/22/2024 Patient Name: Tavo Wallis, Gender: male : 1940 (83 y.o.) Referring Practitioner: Gustabo May PA Diagnosis: Lumbar stenosis with neurogenic claudication Additional Pertinent Hx: The patient is a 83-year-old male who is having constant low back pain with radiation of pain into the bilateral legs with numbness. The patient reports symptoms have been present on a chronic basis. Current VAS score 7/10. Activities that aggravate the pain include standing and walking. Activities that help alleviate the pain include rest. Modifying factors include medication management, physical therapy, and injections/RFA. These have provided mild relief with no lasting benefit. He had a prior lumbar surgery with Dr. Calvillo in 2010. Former smoker. S/P L2-5 decompression and noninstrumented fusion 02/20 Restrictions/Precautions: Restrictions/Precautions: General Precautions, Fall Risk Spinal Precautions: No Bending, No Lifting, No Twisting Other Position/Activity Restrictions: hemovac x1 Required Braces or Orthoses?: Yes Spinal: (LSO when up) Subjective: Chart Reviewed: Yes Patient assessed for rehabilitation services?: Yes Family/Caregiver Present: Yes (Daughter) Subjective: RN ok'd PT session. Patient seated in recliner upon arrival. Patient agreeable to therapy. Patient reporting increased complaints of back pain to 7/10. Patient only able to recall 2/3 spinal precuations and PT provided education on how to don and doff brace and for importance of wearingbrace and for spinal precautions General: Vision: Impaired Vision Exceptions: Wears glasses for reading Hearing: Exceptions to WFL Hearing Exceptions: Hard of hearing/hearing concerns Pain: 7/10: low back pain Vitals: Vitals not assessed per clinical judgement, see nursing flowsheet Social/Functional History: Lives With: Alone Type of Home: House Home Layout: One level Home Access: Ramped entrance Home Equipment: Cane, Walker - Rolling, Walker - 4-Wheeled, Wheelchair - Manual Bathroom Shower/Tub: Walk-in shower Bathroom Toilet: Standard Bathroom Equipment: Commode Prior Level of Assist for ADLs: Independent Prior Level of Assist for Homemaking: Independent Homemaking Responsibilities: Yes Prior Level of Assist for Transfers: Independent Prior Level of Assist for Ambulation: Independent household ambulator, with or without device Has the patient had two or more falls in the past year or any fall with injury in the past year?: Yes (~5) Active Otorhinolaryngologist: Yes Mode of Transportation: Truck 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 son lives on same property but behind patient. Family lives near by and comes often OBJECTIVE: Range of Motion: Right Lower Extremity: WFL Left Lower Extremity: WFL Strength: Right Lower Extremity: Impaired - 4-/5 grossly Left Lower Extremity: Impaired - 4-/5 grossly Balance: Static Sitting Balance: Supervision Dynamic Sitting Balance: Supervision Static Standing Balance: Contact Guard Assistance Dynamic Standing Balance: Contact Guard Assistance, Minimal Assistance *Patient instructed in standing unsupported and reaching outside KATRINA to touch therapist hand outside KATRINA. Bed Mobility: Not Tested Transfers: Sit to Stand: Minimal Assistance Stand to Sit:Minimal Assistance *Patient instructed in multiple sit<>stand transfers throughout session from recliner and edge of bed with cueing for hand placement and increased time required to complete. To/From Bed and Chair: Minimal Assistance *Patient performed bed<>recliner with use of RW and cueing for RW management Ambulation: Minimal Assistance Distance: 5 feet x 2 Surface: Level Tile Device: Rolling Walker Gait Deviations: Forward Flexed Posture, Slow Rafaela, Decreased Step Length Bilaterally, DecreasedWeight Shift Bilaterally, Decreased Gait Speed, Decreased Heel Strike Bilaterally, Decreased Foot Clearance Right, Decreased Foot Clearance Left, Unsteady Gait, Decreased Terminal Knee Extension, Increased reliance on assistive device, Verbal and tactile cues for safety and sequencing required during gait training in order for a more normalized gait pattern and fall preventions. Without verbal and tactile cues, patient would require more physical assistance in order to complete task, and Cues for proximity to assistive device *Patient required tactile cueing at RW for management and cueing for toe clearance and body alignment with RW Stairs: Not Tested Exercise: None Functional Outcome Measures: Completed [facility] (6 CLICK) BASIC MOBILITY AM-[facility] Inpatient Mobility Raw Score : 14 AM-[facility] Inpatient T-Scale Score : 38.1 Modified [place]: Premorbid Functional Status: Not Applicable Current Functional Status: Not Applicable ASSESSMENT: Activity Tolerance: Patient tolerance of treatment:Fair. Treatment Initiated: Treatment and education initiated within context of evaluation. Evaluation time included review of current medical information, gathering information related to past medical, social and functional history, completion of standardized testing, formal and informal observation of tasks, assessment of data and development of plan of care and goals. Treatment time included skilled education and facilitation of tasks to increase safety and independence with functional mobility forimproved independence and quality of life. Assessment: Body Structures, Functions, Activity Limitations Requiring Skilled Therapeutic Intervention: Decreased functional mobility , Decreased strength, Increased pain, Decreased posture, Decreased endurance, Decreased body mechanics, Decreased sensation, Decreased balance Assessment: Patient is a 83 y.o male s/p lumbar fusion resulting in a decline in functional mobility from baseline. Patient demonstrates decreased strength in BLE's and endurance which limits his functional mobility. Patient requires minimal assistance for sit<>stand transfers and ambulation with use of RW and cueing for safety with transfers and ambulation. Patient demonstrates decreased dynamic standing balance resulting in increased risk for falls. Patient overall can benefit from skilled PT treatment in order to assist with BLE strengthening, gait training, transfer training, bed mobility, core strengthening and dynamic balance for increased functional mobility. Therapy Prognosis: Good Requires PT Follow-Up: Yes Patient Education: . Patient Education Education Given To: Patient Education Provided: Role of Therapy, Transfer Training, Plan of Care, Mobility Training, Precautions Education Method: Demonstration, Verbal Barriers to Learning: Cognition Education Outcome: Verbalized understanding, Demonstrated understanding, Continued education needed Plan: Current Treatment Recommendations: Strengthening, Balance training, Endurance training, Functional mobility training, Transfer training, Gait training, Stair training, Neuromuscular re-education, Safety education & training, Patient/Caregiver education & training, Therapeutic activities, Equipment evaluation, education, & procurement, Home exercise program General Plan: (5x O) Goals: Patient Goals : None Stated Short Term Goals Time Frame for Short Term Goals: Duration of stay Short Term Goal 1: PT to assess bed mobility when able Short Term Goal 2: Patient to perform sit<>stand transfers with Supervision in order to assist with safety with transfers in home. Short Term Goal 3: Patient to ambulate >/=75 feet with use of RW and Supervision in order to assist with home mobility. Short Term Goal 4: Patient to ambulate up/down 20 foot ramp with use of RW and Supervision in orderto assist with home entry. Care Home Goals Time Frame for [employer] Goals : N/A due to ELOS Following session, patient left in safe position with all fall risk precautions in place. * Dianne Del Rio OT - 02/22/2024 7:19 AM EST [facility] INPATIENT OCCUPATIONAL THERAPY [facility] ICU STEPDOWN TELEMETRY 4K EVALUATION Discharge Recommendations: Continue to assess pending progress, Subacute/Longterm Facility Equipment Recommendations: No continue to monitor Time In: 718 Time Out: 826 Timed Code Treatment Minutes: 58 Minutes Minutes: 68 Date: 02/22/2024 Patient Name: Tavo Wallis, Gender: male : 1940 (83 y.o.) Referring Practitioner: Randi Burris MD Diagnosis: Lumbar stenosis with neurogenic claudication Additional Pertinent Hx: The patient is a 83-year-old male who is having constant low back pain with radiation of pain into the bilateral legs with numbness. The patient reports symptoms have been present on a chronic basis. Current VAS score 7/10. Activities that aggravate the pain include standing and walking. Activities that help alleviate the pain include rest. Modifying factors include medication management, physical therapy, and injections/RFA. These have provided mild relief with no lasting benefit. He had a prior lumbar surgery with Dr. Calvillo in 2010. Former smoker. S/P L2-5 decompression and noninstrumented fusion 02/20 Restrictions/Precautions: Restrictions/Precautions: General Precautions, Fall Risk Required Braces or Orthoses Spinal: (LSO when up) Position Activity Restriction Spinal Precautions: No Bending, No Lifting, No Twisting Other Position/Activity Restrictions: hemovac x1 Subjective Chart Reviewed: Yes, Orders, Progress Notes, History and Physical, Operative Notes Patient assessed for rehabilitation services?: Yes Family / Caregiver Present: Yes (daughter) Subjective: RN approved OT session, patient pleasant and agreeable to session with PA with Dr. Burris present. Patient slightly confused but pleasant and agreeable. Pain: 7/10: back pain Vitals: HR 130's with activity, at rest 100's RN aware Social/Functional History: Lives With: Alone Type of Home: House Home Layout: One level Home Access: Ramped entrance Home Equipment: (BSC) Bathroom Shower/Tub: Walk-in shower Bathroom Toilet: Standard Prior Level of Assist for ADLs: Independent Prior Level of Assist for Homemaking: Independent Homemaking Responsibilities: Yes Prior Level of Assist for Transfers: Independent Prior Level of Assist for Ambulation: Independent household ambulator, with or without device Has the patient had two or more falls in the past year or any fall with injury in the past year?: Yes (5 this year) Active Otorhinolaryngologist: Yes 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 son lives on same property but behind patient. Family lives near by and comes often VISION:WNL HEARING: WNL COGNITION: Slow Processing, Decreased Recall, Decreased Insight, Decreased Problem Solving, Decreased Safety Awareness, Impaired Attention, Difficulty Following Commands, and Impulsive RANGE OF MOTION: Right Upper Extremity: Impaired - 90 degrees shoulder flexion, compensation noted with shoulder flexion, all other joints WFL Left Upper Extremity: Impaired - 110 degrees shoulder flexion all other joints WFL STRENGTH: Right Upper Extremity: Impaired - 3-/5 Left Upper Extremity: Impaired - 4-/5 Hand Dominance: Ambidextrous SENSATION: Denied changes but does have swelling bilaterally ADL: Grooming: Minimal Assistance, X 1, with set-up, with verbal cues , and with increased time for completion. Oral hygiene routine while sitting in recliner, required moderate cues to complete task and attention to task, requires min assistance for opening items Upper Extremity Dressing: Maximum Assistance and X 1. Calvin back brace while sitting on EOB Lower Extremity Dressing: Maximum Assistance, X 1, with set-up, with verbal cues , and with increased time for completion. Threading BLE into depends, then when standign max assist to pull up. Patient distracted by lines and required assistance to maintain spinal prcautions. Footwear Management: Maximum Assistance, X 1, with set-up, with verbal cues , and with increased time for completion. Calvin slipper socks while sitting on EOB to maintain spinal precautions . Began education about use of long handled adaptive equipment to improve ease and independence in ADL completion while maintaining spinal precautions, however due to patient cognition patient will benefit from continuous educaiton IADL: Not Tested BALANCE: Sitting Balance: Contact Guard Assistance, X 1, with cues for safety, with verbal cues . Standing Balance: Minimal Assistance, X 1, with cues for safety, with verbal cues , with increased time for completion. For balance and safety BED MOBILITY: Rolling to Right: Moderate Assistance, X 1, with head of bed flat, with rail, with verbal cues , with increased time for completion education on log roll techniques Supine to Sit: Moderate Assistance, X 1, with head of bed flat, with rail, with verbal cues , with increased time for completion education on log roll techniques Scooting: Minimal Assistance, X 1 TRANSFERS: Sit to Stand: Minimal Assistance, X 1, with increased time for completion, cues for hand placement,with verbal cues. From EOB Stand to Sit: Minimal Assistance, X 1, with increased time for completion, cues for hand placement,with verbal cues. To recliner, required cues for self placement, walker placement and safe techniques FUNCTIONAL MOBILITY: Assistive Device: Rolling Walker Assist Level: Minimal Assistance, X 1, with set-up, with verbal cues , and with increased time for completion. Distance: Within room Assistance with walker placement, safe walker placement and cues to visually scan in room for targets [facility] Inpatient Daily Activity Raw Score: 14 [facility] Inpatient ADL T-Scale Score : 33.39 ADL Inpatient CMS 0-100% Score: 59.67 Activity Tolerance: Patient tolerance of treatment: Good treatment tolerance, Limited by fatigue, Limited by medical complications, and Reduced activity pace Functional Outcome Measures: [facility] Inpatient Daily Activity Raw Score: 14 [facility] Inpatient ADL T-Scale Score : 33.39 ADL Inpatient CMS 0-100% Score: 59.67 ADL Inpatient CMS G-Code Modifier : CK Modified [place]: Premorbid Functional Status: Not Applicable Current Functional Status: Not Applicable Assessment: Assessment: Tavo Wallis is a 83 y.o. y.o. male that presents with below new performance deficits secondary to lumbar stenosis with neurogenic claudication . Pt is requiring increased assistance for ADLs, functional mobility, ADL transfers compared to baseline level of function. Skilled OT services is warranted to improve below performance deficits and progress pt towards PLOF. Without OT pt is at risk for falls, further decline in functional abilities, increased caregiver burden, increased risk for medical complication as a result of reduce mobility and inability to return to prior level of living. Performance deficits / Impairments: Decreased functional mobility , Decreased cognition, Decreased high-level IADLs, Decreased ADL status, Decreased endurance, Decreased strength, Decreased balance, Decreased safe awareness Prognosis: Good REQUIRES OT FOLLOW-UP: Yes Decision Making: Medium Complexity Treatment Initiated: Treatment and education initiated within context of evaluation. Evaluation time included review of current medical information, gathering information related to past medical, social and functional history, completion of standardized testing, formal and informal observation of tasks, assessment of data and development of plan of care and goals. Treatment time included skilled education and facilitation of tasks to increase safety and independence with ADL's for improved functional independence and quality of life. Patient Education: Patient Education Education Given To: Patient;Family Education Provided: Role of Therapy;Plan of Care;Fall Prevention Strategies;Orientation;Precautions;Family Education;ADL Adaptive Strategies;Transfer Training Education Method: Demonstration;Verbal Barriers to Learning: Cognition Education Outcome: Verbalized understanding;Demonstrated understanding Plan: Times Per Week: 6x Current Treatment Recommendations: Balance training, Strengthening, Functional mobility training, Endurance training, Safety education & training, Patient/Caregiver education & training, Painmanagement, Cognitive reorientation, Equipment evaluation, education, & procurement, Self-Care / ADL, Home management training. See long-term goal time frame for expected duration of plan of care. If no long-term goals established, a short length of stay is anticipated. Goals: Patient goals : Go back home Short Term Goals Time Frame for Short Term Goals: until discharge Short Term Goal 1: Patient will safely complete various functional transfers with supervision and 0-1 cues for spinal precautions to improve safety in living environment. Short Term Goal 2: Patient will improve functional ambulation to/from bathroom with SBA and LRAD, 0-1 vcs for safety in prep for return to PLOF. Short Term Goal 3: Patient will complete UB/LB dressing/bathing with CGA and use of LHAE prn to maintain spinal precautions to improve ease in BADL routine. Short Term Goal 4: Patient will tolerate standing 7-12 minutes with BUE release reaching ouside base of support with SBA to complete sink side grooming. Care Home Goals Time Frame for Patternmaker Wood Goals : None due to ELOS [facility] Inpatient Daily Activity Raw Score: 14 [facility] ADL T-Scale Score : 33.39 Following session, patient left in safe position with all fall risk precautions in place. * Gustabo May PA - 02/22/2024 7:06 AM EST Department of Orthopedic Surgery Spine Service Attending Progress Note Subjective: POD#1 Patient confused this am, daughter at bedside. Patient getting ready to work with PT. He c/o back pain and left thigh pain. He has not been out of bed yet Chou in place. No BM Denies chest pain, shortness of breath, n/v. Per daughter, patient is a 6pack/day drinker, sometimes more. Vitals VITALS: BP 98/68 Pulse (!) 104 Temp 97.6 F (36.4 C) (Oral) Resp 18 Ht 1.676 m (5' 6 ) Wt 86.3 kg (190 lb 3.2 oz) SpO2 94% BMI 30.70 kg/m 24HR INTAKE/OUTPUT: Intake/Output Summary (Last 24 hours) at 02/22/2024 0706 Last data filed at 02/22/2024 0542 Gross per 24 hour Intake 1900 ml Output 1390 ml Net 510 ml URINARY CATHETER OUTPUT (Chou): External Urinary Catheter-Output (mL): 340 mL DRAIN/TUBE OUTPUT: Closed/Suction Drain Back Accordion-Output (ml): 60 ml (emptied) PHYSICAL EXAM: Orientation: awake and alert, cooperative. States he is at [facility] for back surgery, knows his surgeons name but states its 1984. Incision: dressing in place, clean, dry, intact Lower Extremity Motor : 5/5 bilateral pedal push/pull except 4/5 left TA (chronic) Lower Extremity Sensory: Intact L1-S1 Flatus: positive LABS: HgB: Lab Results Component Value Date/Time HGB 9.5 02/22/2024 03:37 AM Hemoglobin/Hematocrit: Lab Results Component Value Date/Time HGB 9.5 02/22/2024 03:37 AM HCT 30.0 02/22/2024 03:37 AM BMP: Lab Results Component Value Date/Time NA 134 02/22/2024 03:37 AM K 4.2 02/22/2024 03:37 AM CL 101 02/22/2024 03:37 AM CO2 22 02/22/2024 03:37 AM BUN 18 02/22/2024 03:37 AM CREATININE 0.9 02/22/2024 03:37 AM CALCIUM 8.5 02/22/2024 03:37 AM LABGLOM 85 02/22/2024 03:37 AM GLUCOSE 165 02/22/2024 03:37 AM ASSESSMENT AND PLAN: Post operative day 1 status post L2-5 decompression and noninstrumented fusion 1: Monitor labs and drain output 2: Activity Level: As tolerated. PT/OT, back brace when ambulating 3: Pain Control: Ok - morphine discontinued 4: Discharge Planning: pending - planning rehab/SNF 5: remove chou once mobile 6: acute blood loss anemia s/p surgery - hgb 9.5, AM labs ISSA Najera * Ambar Gibson RN - 02/21/2024 2:27 PM EST 1343: Pt arrives to pacu. Pt awake and restless in bed. O2 sat 77% on 6L NC. Respirations labored. VETERAN APPEALS REVIEWER at pt bedside and placed NPA in right nare. 1410: O2 sats at 92% on 6L NC. Pt placed on Non-rebreather mask 15L O2. 1415: Dr. Padron at pt bedside. Verbal order to place pt on heated High Flow NC 60% FiO2 and 60LPM. 1419: Pt c/o lower back pain 10/10. Dilaudid administered per MAY 1429: Pt c/o lower back pain 10/10. Dilaudid administered per MAY. 1435: Pt c/o lower back pain 10/10. Dilaudid administered per MAY. 1504: Phone call to Dr. Padron. Updated on pt status. Dr. Padron stating to leave pt on High Flow NC and recommending step down floor. 1510: Phone call to Dr. Man. Updated on pt status. Order received for pt to be admitted to step down floor. Family updated on awaiting bed placement. 1515: 250 ml of sanguineous drainage emptied from pt's hemovac. 1525: Pt resting in bed on left side with eyes closed. VSS. 1540: Pt resting in bed with eyes closed. Awakens easily to voice. 1548: Pt c/o of lower back pain 6/10. Oxycodone IR administered per MAY. 1600: 250 ml of sanguineous drainage emptied from pt's hemovac. 1615: Pt's family at pt's bedside. 1618: Pt meets criteria for discharge from pacu, awaiting room placement 1635: Phone call to Mani PARSONS to update on hemovac output. T/O received for H&H. 1650: Pt resting in bed with eyes closed and respiration easy and unlabored. VSS. 1710: Pt resting in bed with eyes closed. Awakens easily to voice. VSS. 1724: Phone call to . Spoke with nurse Marcelle and report given. Pt resting in bed with eyes closed comfortably. VSS. 1745: Called [facility] to have nurse update family about room number and that room was awaiting to be cleaned. Stat clean placed on room 1810: Repositioned patient at this time and provided more water, tolerated well 182: Pt resting off and on with eyes closed, easily awakens to voice. 1830: [facility] called pacu for update per family request, update given that pt continuing to await room to finish cleaning 185: Called family to update of patients room being ready and patient being in for transport 185: Emptied 150mls from hemovac drain 185: Pt transported to in stable condition. VSS * Karen Ambrocio RN - 02/21/2024 7:57 AM EST Patient admitted to [facility] room 3 with family at bedside. Bed in low position side rails up call lightin reach. Patient denies questions at this time. Abigail (daughter) [phone] * Edilma Abdul RN - 02/20/2024 9:01 AM EST Called for clearance from Dr Mcintyre * Edilma Abdul RN - 02/15/2024 12:11 PM EST Called [facility] medical records for labs, CXR, EKG and any other testing pt has done for surgery. Had to leave message * Edilma Abdul RN - 02/15/2024 9:57 AM EST PAT call attempted, patient unavailable, left message to please call us back at your earliest convenience; [phone] * Edilma Abdul RN - 02/14/2024 3:[address] Burris for labs, EKG, clearance, and CXR documented in this encounterBon [facility] Discharge instructions* Discharge Instructions* Gustabo May PA - 02/27/2024 8:04 AM EST Wound Care: -Dressing changes once daily until incision is clean and dry, then okay to leave open to air. -Do not submerge incision in water. Avoid hot-tubs and pools -Okay to shower but try and keep incision as dry as possible. Can apply a waterproof dressing whileshowering. Restrictions: -Limit bending and twisting -No lifting over 10-15 lbs -Walk as much as tolerated, take short frequent walks throughout the day and try to take one long walk a day (start at 5 minutes and increase as tolerated) -Wear back brace when ambulating. Medications: -A pain medication (Percocet) and muscle relaxer (Flexeril) will be sent to your pharmacy. Take medications as directed -Pain medications can cause postoperative constipation. Take an over the counter stool softener while taking the pain medication -Okay to resume vitamins and supplements one week after surgery -Okay to resume aspirin 72 hours after surgery and all other blood thinners 5 days following surgery unless otherwise directed -Hold NSAIDs for 6 months after surgery Postoperative appointment: -Please contact the office to schedule an appointment for 6 weeks after surgery if you are not already scheduled for an appointment - ext [phone] If any concerning symptoms, such as calf pain/swelling, new numbness/tingling or pain please the contact the office. If concerning symptoms including chest pain or difficulty breathing, go to the Emergency Department. * Discharge Instr - Diet* Norma Peter RN - 02/27/2024 9:40 AM EST Good nutrition is important when healing from an illness, injury, or surgery. Follow any nutrition recommendations given to you during your hospital stay. If you were given an oral nutrition supplement while in the hospital, continue to take this supplement at home. You can take it with meals, in-between meals, and/or before bedtime. These supplements can be purchased at most local grocery stores, pharmacies, and [employer]. If you have any questions about your diet or nutrition, call the hospital and ask for the dietitian. * Discharge Instr - JESSICA* Randa King MD - 02/24/2024 11:27 AM EST Continuity of Care Form Patient Name: Tavo Wallis : 1940 Admit date: 02/21/2024 Discharge date: Code Status Order: Full Code Advance Directives: Advance Care Flowsheet Documentation Date/Time Healthcare Directive Type of Healthcare Directive Copy in Chart Healthcare Agent Appointed Healthcare Agent's Name Healthcare Agent's Phone Number 02/21/24 0757 Yes, patient has an advance directive for healthcare treatment Durable power of admitted attorneys for health care;Living will Yes, copy in chart -- -- -- Admitting Physician: Randi Burris MD PCP: Opal Ga DO Discharging Nurse: Discharging Hospital Unit/Room#: 4K-25/025-A Discharging Unit Phone Number: Emergency Contact: Extended Emergency Contact Information Primary Emergency Contact: DamiannixonNicole Mobile Relation: Child Japanese Professor needed? No Past Surgical History: Past Surgical History: Procedure Laterality Date BACK SURGERY x2 lumbar area EYE SURGERY Bilateral catract JOINT REPLACEMENT Bilateral both kness, left hip, both shoulders rotator cuff, LUMBAR FUSION N/A 02/21/2024 L2-5 Decompression and Non Instrumented Fusion performed by Randi Burris MD at [facility] OR Immunization History: Immunization History Administered Date(s) Administered COVID-19, CASSIEA Erika, (age 12y+), IM, 50 mcg/0.5 mL 12/24/2021 Active Problems: Patient Active Problem List Diagnosis Code Lumbar stenosis with neurogenic claudication M48.062 Isolation/Infection: Isolation No Isolation Patient Infection Status None to display Nurse Assessment: Last Vital Signs: BP 122/72 Pulse (!) 107 Temp 99.1 F (37.3 C) (Oral) Resp 18 Ht 1.676 m (5' 6 ) Wt 86.3 kg (190 lb 3.2 oz) SpO2 94% BMI 30.70 kg/m Last documented pain score (0-10 scale): Pain Level: 3 Last Weight: Wt Readings from Last 1 Encounters: 02/21/24 86.3 kg (190 lb 3.2 oz) Mental Status: oriented and alert IV Access: - None Nursing Mobility/ADLs: Walking Assisted Transfer Assisted Bathing Assisted Dressing Assisted Toileting Assisted Feeding Assisted Green Tire Inspector Assisted Med Delivery whole Wound Care Documentation and Therapy: Incision 02/21/24 Back Lower;Medial (Active) Dressing Status Old drainage noted;Dry;Intact 02/24/24 1106 Incision Cleansed Not Cleansed 02/24/24 1106 Dressing/Treatment Tegaderm/transparent film dressing;Dry dressing 02/24/24 1106 Closure Other (Comment) 02/24/24 1106 Margins Other (Comment) 02/24/24 1106 Incision Assessment Other (Comment) 02/24/24 1106 Drainage Amount Small (< 25%) 02/24/24 1106 Drainage Description Serosanguinous 02/24/24 1106 Odor None 02/24/24 1106 Pratima-incision Assessment Other (Comment) 02/24/24 1106 Number of days: 3 Elimination: Continence: Bowel: No Bladder: No Urinary Catheter: None Colostomy/Ileostomy/Ileal Conduit: No Date of Last BM: 02/27/2024 Intake/Output Summary (Last 24 hours) at 02/24/2024 1124 Last data filed at 02/24/2024 1103 Gross per 24 hour Intake 1706.98 ml Output 3240 ml Net -1533.02 ml I/O last 3 completed shifts: In: 4243.3 [P.O.:1420; I.V.:2321.4; IV Piggyback:501.9] Out: 3820 [Urine:3700; Drains:120] Safety Concerns: None Impairments/Disabilities: None Nutrition Therapy: Current Nutrition Therapy: - Oral Diet: General Routes of Feeding: Oral Liquids: Thin Liquids Daily Fluid Restriction: no Last Modified Barium Swallow with Video (Video Swallowing Test): not done Treatments at the Time of Hospital Discharge: Respiratory Treatments: Oxygen Therapy: is not on home oxygen therapy. Ventilator: - No ventilator support Rehab Therapies: Physical Therapy and Occupational Therapy Weight Bearing Status/Restrictions: No weight bearing restrictions Other Medical Equipment (for information only, NOT a DME order): braces back Other Treatments: Patient's personal belongings (please select all that are sent with patient): None RN SIGNATURE: CASE MANAGEMENT/SOCIAL WORK SECTION Inpatient Status Date: 02/22/2024 Readmission Risk Assessment Score: [facility] RISK OF UNPLANNED READMISSION 2.0 15.2 Total Score Discharging to Facility/ Agency Name: [facility] Address: [address] [place] [address] Dialysis Facility (if applicable) Name: Address: Dialysis Schedule: Phone: Fax: Manager Resource/Hydroelectric Station Operator Chief signature: PHYSICIAN SECTION Prognosis: Good Condition at Discharge: Stable Rehab Potential (if transferring to Rehab): Good Recommended Labs or Other Treatments After Discharge: complete course of antibiotic, PT/OT Physician Certification: I certify the above information and transfer of Tavo Wallis is necessary for the continuing treatment of the diagnosis listed and that he requires Longterm Facility for less 30 days. Update Admission H&P: No change in H&P PHYSICIAN SIGNATURE: documented in this encounterBon [facility] History of Present illness Narrative* Tavo Mcintyre, DO - 02/16/2024 2:50 PM EST Subjective Tavo Wallis is a 83 y.o. male Chief Complaint Pre-op Clearance 83-year-old gentleman here for preoperative risk assessment and clearance prior to her lumbar kyphoplasty/laminectomy. He is doing well from a cardiovascular standpoint. Last hospitalization was 2 years ago. At that time his Entresto and carvedilol were discontinued. Imaging revealed improved left ventricular function with ejection fraction of 50%. He has known mild nonischemic cardiomyopathy; atrial fibrillation that is chronic, currently on anticoagulation and Bumex no longer on beta-saroj or afterload reduction therapies. Today's ECG reveals atrial for better rate of 111 with PVC's.. He is otherwise had no hospitalizations for heart failure, he has minimal coronary artery disease again improved LV function by recent echo from within the last year Recommendation he is clear for his intended lumbar procedure, will follow-up again in 1 year with nurse practitioner Review of Systems All other systems reviewed and are negative. Vitals: 02/16/24 1520 BP: 142/86 BP Location: Left arm Patient Position: Sitting Pulse: (!) 111 Weight: 86.6 kg (191 lb) Height: 1.676 m (5' 6 ) Objective [...] back: Normal range of motion. Right lower leg: No edema. Left lower leg: No edema. Skin: General: Skin is warm and dry. [...] (Mag-Ox) 400 mg (241.3 mg magnesium) tablet, Take 1 tablet (400 mg) by mouth once daily., Disp: 90 tablet, Rfl: 3 oxyCODONE-acetaminophen (Percocet) 5-325 mg tablet, Take 1 tablet by mouth 2 times a day., Disp: , Rfl: traZODone (Desyrel) 50 mg tablet, Take 1 tablet (50 mg) by mouth as needed at bedtime., Disp: , Rfl: Assessment/Plan 1. Preop cardiovascular exam 2. Heart failure, NYHA class 2 3. Chronic atrial fibrillation (Multi) 4. MCFP current use of anticoagulant therapy 5. Primary hypertension 6. Mixed hyperlipidemia 7. BMI 30.0-30.9,adult 8. Former smoker Scribe Attestation By signing my name below, Viridiana Washington LPN, Scribe attest that this documentation has been prepared under the direction and in the presence of Ju Mcintyre DO. Provider Attestation - Scribe documentation All medical record entries made by the Scribe were at my direction and personally dictated by me. Albino reviewed the chart and agree that the record accurately reflects my personal performance of the history, physical exam, discussion and plan. [facility] Work Phone: 1(634) 681-154112-12-2024 Instructions* Patient Instructions* Viridiana Walden LPN - 02/16/2024 2:50 PM EST Please bring all medicines, vitamins, and herbal supplements with you when you come to the office. Prescriptions will not be filled unless you are compliant with your follow up appointments or have a follow up appointment scheduled as per instruction of your physician. Refills should be requested at the time of your visit. Fall Prevention Education Given Tavo Wallis is clear for surgery from a cardiac standpoint documented [facility]Kind[facility] Work Phone: 1(217) 670-939112-09-2024 Evaluation note* Author Danna Melgar [facility] 2023 9:28amThe above note written by Danna Melgar LPN, acting as human recorder, note dictated by Dr. Opal Ga. [facility] Work Phone: 1(987) 862-611405-08-2024 History of Present illness Narrative* Tavo Myranda DO Francisco Javier - 07/13/2023 9:40 AM EDT Subjective Tavo Wallis is a 82 y.o. male Chief Complaint Annual Exam 82-year-old gentleman returns for follow-up. He is doing well from a cardiovascular standpoint he is debilitated by his significant osteoarthritis, recent peripheral nerve/ablations performed at [facility] this past year. He has persistent edema [...] Scribe Attestation By signing my name below, ITasha RN , Scribe attest that this documentation has been prepared under the direction and in the presence of Ju Mcintyre DO. Provider Attestation - Scribe documentation All medical record entries made by the Scribe were at my direction and personally dictated by me. Ihave reviewed the chart and agree that the record accurately reflects my personal performance of the history, physical exam, discussion and plan. documented in this [facility]Kind[facility] Work Phone: [phone]) 351-854805-08-2024 Instructions* Patient Instructions* Hermilo Bell MA - 07/13/2023 9:40 AM [...] Fall Prevention Education Given documented [facility]Kind[facility] Work Phone: [phone] [id number] Evaluation note* Encounter Date Diagnosis Assessment Notes Treatment Notes Treatment Clinical Notes Mar, Lumbar degenerative disc disease (ICD-10 - M51.36) Patient is following with pain management at [facility], had a recent branch block. He is scheduled to follow up again next week to discuss another procedure. Patient reports rarely taking the above pain medication as this does cause him constipation. Mar,Screening for prostate cancer (ICD-10 - Z12.5) Blood work ordered for next visit. Mar,Hypothyroidism, unspecified (ICD-10 - E03.9) Blood work ordered for next visit. Mar,Hyperlipidemia (ICD-10 - E78.5) Blood work ordered for next visit. Patient does follow with Dr. Mcintyre yearly. Mar,PH (benign prostatic hyperplasia) (ICD-10 - N40.0) Patient [...] above medication. We will continue to monitor. rimidi Other 10-02-2023 Evaluation note* Encounter Date Diagnosis Assessment Notes Treatment Notes Treatment Clinical Notes Dec, Insomnia (ICD-10 - G47.00) rimidi Other 09-26-2023 Evaluation note* Encounter Date Diagnosis Assessment Notes Treatment Notes Treatment Clinical Notes Nov, Gout (ICD-10 - M10.9) rimidi Other 07-12-2023 Evaluation note* Encounter Date Diagnosis [...] the blood sugar and chemestries are stable Sep,Hypothyroidism, unspecified (ICD-10 - E03.9) Thyroid levels are stable. He is to continue with current medicaton regimen as ordered. Sep,PH (benign prostatic hypertrophy) (ICD-10 - N40.0) Patient has known BPH. PSA is within normal limits Sep,Lumbar degenerative disc disease (ICD-10 - M51.36) Patient is under the care of pain management out of [place]. States the pain is slightly improved and mobility of the spine is improved to wear he can bend over to touch his foot while in a sitting position. Encouraged to follow plan of care as outlined by pain management. Use stool softner/ increase fiber to assist with side effects of constipation that is caused by pain pill. Sep,out (ICD-10 - M10.9) No swelling or redness reported in any of the joints. Allopurinol dose is to remain the same. Renalfunction is stable. CBC shows mild anemia but this is also stable for him and slightly better Sep,ough, unspecified type (ICD-10 - R05.9) Patient reports episodic cough that varies througout the day. He reports thick green sputum at times associated with this. I am going to order him a zpack with a refll. He admits to not drinking verywell. He needs to increase the fluids to thin out the secretions. Rx sent rimidi Other 07-05-2023 Evaluation note* Encounter Date Diagnosis Assessment Notes Treatment Notes Treatment Clinical Notes Sep, Hyperlipidemia (ICD-10 - E78.5) Sep,Insomnia (ICD-10 - G47.00) Sep,Hypothyroidism, unspecified (ICD-10 - E03.9) rimidi Other 04-03-2023 Evaluation note* Encounter Date Diagnosis Assessment Notes Treatment Notes Treatment Clinical Notes Jun, Lumbar degenerative disc disease (ICD-10 - M51.36) I am in agreement the patient keep the above medication on hand to use sparingly for back pain and to continue following with Pain Management. The patient states he does still go to the [facility] for hunting trips with a group but does not do much walking around anymore. Jun,round-level fall (ICD-10 - W18.30XA) The patient states he had a new door installed that has a small 3-inch step that he forgot about resulting in a fall yesterday 06/06/22. The patient sustained a left knee abrasion and exacerbation oflumbar pain. Per patient he thinks he landed on his cane and cell phone. The patient encourged to continue ambulating with his cane and use caution . Jun,brasion of left knee, initial encounter (ICD-10 - S80.212A) Abrasion of the left knee sustained secondary to a fall at this home yesterday 06/06/22. The patient states his knee is fine with no treatment required today. Jun,Hyperlipidemia (ICD-10 - E78.5) Blood work ordered to be collected in three months. Pt is to continue with the above medication andcontinue watching their diet and increase their exercise regimen. Jun,Weight loss (ICD-10 - R63.4) Blood work ordered to evalaute. Jun,Screening for prostate cancer (ICD-10 - Z12.5) rimidi Other 03-28-2023 Evaluation note* Encounter Date Diagnosis Assessment Notes Treatment Notes Treatment Clinical Notes May, Insomnia (ICD-10 - G47.00) rimidi Other 03-07-2023 Evaluation note* Encounter Date Diagnosis Assessment Notes Treatment Notes Treatment Clinical Notes May, Atrial fibrillation (ICD-10 - I4 8.91) rimidi Other 02-09-2023 NoteCONSULTATION CONSULTATION DATE: 04/15/2022 HISTORY [...] in the clinic in three months' time.[id number] Evaluation note* Encounter Date Diagnosis Assessment Notes [...] medication everyday as he does get relief. Mar,ctinic keratosis (ICD-10 - L57.0) Noted on the scalp. I advised the patient we can freeze this if this does become bothersome. Encouraged patient to wear a hat out in the sun. rimidi Other 12-29-2022 Evaluation note* Encounter Date Diagnosis Assessment Notes Treatment Notes Treatment Clinical Notes Feb, Insomnia (ICD-10 - G47.00) Feb,Hypothyroidism, unspecified (ICD-10 - E03.9) rimidi Other 12-28-2022 Evaluation note* Encounter Date Diagnosis Assessment Notes Treatment Notes Treatment Clinical Notes Feb, Insomnia (ICD-10 - G47.00) Feb,Hypothyroidism, unspecified (ICD-10 - E03.9) rimidi Other 12-15-2022 NoteCONSULTATION CONSULTATION DATE: 02/18/2022 HISTORY [...] move forward with the plan of care.[facility] [id number] Evaluation note* Encounter Date Diagnosis Assessment Notes Treatment Notes Treatment Clinical Notes Feb, Lumbar degenerative disc disease (ICD-10 - M51.36) Daughter feels that patient was doing quite well while he was getting daily PT at [facility], however now that he has home has become significantly weaker since being home. He missed his Home health referal and therapy initiation due to being out of town. I feel that he would definitelybenefit from further therapy, therefore this was ordered for him. Feb,HF (congestive heart failure) (ICD-10 - I50.9) Patient states that he does not always take his diuretic when he has appointments or is leaving hishome , resulting in CHF flare up. He is down about 16lbs since being diuresed during his hospitalization. Strongly encouraged patient to stay compliant with medications, wear his compression stockings and monitor his weight as often as he can. He will f/u with cardiology on 02/15. Feb,Lower extremity weakness (ICD-10 - M62.81) PT ordered for patient Feb,andidiasis (ICD-10 - B37.9) Noted in groin area upon examination, continue using the above powder. rimidi Other 11-11-2022 Progress note Author Raji [facility] January 15, 2022 4:51pmNote Date/TimeNov2021 4:[place] [address] Hospitalist Progress Note Signed Patient: Tavo Wallis Jr MR# : [id number] : 1940 Acct:[id number] Age/Sex: 81 / M Adm Date: 2 Loc: 3T Room: [address] [place] [address] Type: ADM IN Attending Dr: Raji Ennis [...] mg 01/09/22 14:41 Bisacodyl 10 Mg Supp.Rect SD 01/09/23 14:40 DAILY PRN Constipation Bisacodyl 10 [...] Propionate 1 spray 01/09/22 15:17 Fluticasone Propionate Moselle 120 Moselle/16 Gm Bottle NARES-BOTH 01/09/23 15:16 QHS PRN Nasal Congestion Magnesium Sulfate 2 gm in 50 mls @ 25 mls/hr 01/09/22 14:41 Magnesium Sulf 2gm-*Swfi* IV 01/09/23 14:40 DAILY PRN Magnesium Level < 1.5 Levothyroxine Sodium 150 mcg 01/10/22 06:30 01/15/22 06:38 Levothyroxine 150 Mcg Tablet PO 11/06/23 06:29 Not Given DAILY@0630 ANIBAL Magnesium Hydroxide [...] tomorrow. Documented By: Raji Ennis MD 01/15/22 2663 Signed By: <Electronically signed by Raji Ennis MD> 01/15/22 1651 [facility] Work Phone: 1(612) 916-302411-11-2022 Progress note Author Frankie Reynolds [facility] January 15, 2022 12:21pmNote Date/TimeNov2021 12:21pm[place] [address] Infect. Disease Progress Note Signed Patient: Tavo Wallis Jr MR# : [id number] : 1940 Acct:[id number] Age/Sex: 81 / M Adm Date: 2 Loc: Room: 0D6792-0 Type: ADM IN Attending Dr: Raji Ennis [...] Tablet) 300 mg PO DAILY [facility] Stop: 01/10/23 08:59 Last Admin: 01/15/22 08:46 Dose: 300 mg Apixaban (Apixaban 5 Mg Tablet) 5 mg PO BID [facility] Stop: 01/09/23 20:59 Last Admin: 01/15/22 08:46 Dose: 5 mg Atorvastatin Calcium (Atorvastatin 40 Mg Tablet) 40 mg PO QHS ANIBAL Stop: 01/09/23 21:59 Last Admin: 01/14/22 21:32 Dose: 40 mg Bisacodyl (Bisacodyl 10 Mg Supp.Rect) 10 mg SD DAILY PRN PRN Reason: Constipation Stop: 01/09/23 14:40 Bisacodyl (Bisacodyl 5 Mg Tablet.Dr) 10 mg PO DAILY PRN PRN Reason: Constipation Stop: 01/09/23 14:40 Last Admin: 01/14/22 19:57 Dose: 10 mg Bumetanide (Bumetanide 1 Mg Tablet) 1 mg PO DAILY@0800 [facility] Stop: 01/14/23 15:59 Last Admin: 01/15/22 08:46 Dose: 1 mg Docusate Sodium (Docusate 100 Mg Capsule) 100 mg PO BID [facility] Stop: 01/09/23 20:59 Last Admin: 01/15/22 08:46 Dose: 100 mg Fluticasone Propionate (Fluticasone Propionate Moselle 120 Moselle/16 Gm Bottle) 1 spray NARES-BOTH QHSPRN PRN Reason: Nasal Congestion Stop: 01/09/23 15:16 Magnesium Sulfate (Magnesium Sulf 2gm-*Swfi*) 2 gm in 50 mls @ 25 mls/hr IV DAILY PRN PRN Reason: Magnesium Level < 1.5 Stop: 01/09/23 14:40 Levothyroxine Sodium (Levothyroxine 150 Mcg Tablet) 150 mcg PO DAILY@0630 [facility] Stop: 01/10/23 06:29 Last Admin: 01/15/22 06:38 [...] (Tablet) 3 mg PO HS [facility] Stop: 01/11/23 21:59 Last Admin: 01/14/22 21:32 Dose: 3 mg Nystatin (Nystatin 100,000 Unit/Gram Powder 15 Gm Bottle) 1 applic TOPICAL TID [facility] Stop: 01/09/23 21:59 Last Admin: 01/15/22 08:46 [...] Tab.Er.Prt) 20 meq PO QPM [facility] Stop: 01/09/23 20:59 Last Admin: 01/14/22 21:32 [...] denies any new physical complaints. We will followhim as needed Documented By: Frankie Reynolds MD 01/15/221219 Signed By: <Electronically signed by MD Frankie Reynolds> 01/15/22 1221 [facility] Work Phone: 1([phone]) 153-402211-10-2022 Progress note Author Raji Ennis [facility] January 14, 2022 5:43pmNote Date/TimeNov2021 5:43[place] [address] Hospitalist Progress Note Signed Patient: Tavo Wallis Jr MR# : [id number] : 1940 Acct:[id number] Age/Sex: 81 / M Adm Date: 2 Loc: Room: [address] [place] [address] Type: ADM IN Attending Dr: Raji Ennis MD Copies to: ~ Date of Service: 01/14/2022 Subjective Subjective Narrative: patient seen and examined. He is in good spirits today and is oriented x3. Denies any shortness of breath, cough, chest pain, fever and chills. States that low back pain is fairly well tolerated withpain medications. Exam Physical Exam Vital Signs: Temp [...] mg 01/09/22 14:41 Bisacodyl 10 Mg Supp.Rect SD 01/09/23 14:40 DAILY PRN Constipation Bisacodyl 10 [...] Propionate 1 spray 01/09/22 15:17 Fluticasone Propionate Moselle 120 Moselle/16 Gm Bottle NARES-BOTH 01/09/23 15:16 QHS PRN [...] 21:17 Dextrose IV 01/14/22 23:59 Infused Q24H [facility] Infusion Levothyroxine Sodium 150 mcg 01/10/22 06:30 01/14/22 05:54 Levothyroxine 150 Mcg Tablet PO 01/10/23 06:29 150 mcg DAILY@0630 [facility] Administration Magnesium Hydroxide 30 ml 01/09/22 14:41 [...] signed by Raji Ennis MD> 01/14/221742 [facility] Work Phone: [phone] 527-486511-10-2022 Progress note Author Frankie Reynolds [facility] January 14, 2022 9:39amNote Date/TimeNov2021 9:39am[place] [address] Infect. Disease Progress Note Signed Patient: Tavo Wallis Jr MR# : [id number] : 1940 Acct:[id number] Age/Sex: 81 / M Adm Date: 2 Loc: Room: [address] [place] [address] Type: ADM IN Attending Dr: Raji Ennis [...] Appearance Clear Urine pH 5.5 Ur Specific Delta 1.012 Urine Protein 30 H Urine Glucose [...] Tablet) 300 mg PO DAILY [facility] Stop: 01/10/23 08:59 Last Admin: 01/14/22 08:04 Dose: 300 mg Apixaban (Apixaban 5 Mg Tablet) 5 mg PO BID [facility] Stop: 01/09/23 20:59 Last Admin: 01/14/22 08:04 Dose: 5 mg Atorvastatin Calcium (Atorvastatin 40 Mg Tablet) 40 mg PO QHS ANIBAL Stop: 01/09/23 21:59 Last Admin: 01/13/22 21:26 Dose: 40 mg Bisacodyl (Bisacodyl 10 Mg Supp.Rect) 10 mg SD DAILY PRN PRN Reason: Constipation Stop: 01/09/23 14:40 Bisacodyl (Bisacodyl 5 Mg Tablet.Dr) 10 mg PO DAILY PRN PRN Reason: Constipation Stop: 01/09/23 14:40 Last Admin: 01/13/22 21:26 Dose: 10 mg Bumetanide (Bumetanide 1 Mg Tablet) 1 mg PO BID@0800,1600 [facility] Stop: 01/13/23 15:59 Docusate Sodium (Docusate 100 Mg Capsule) 100 mg PO BID [facility] Stop: 01/09/23 20:59 Last Admin: 01/14/22 08:03 Dose: 100 mg Fluticasone Propionate (Fluticasone Propionate Moselle 120 Moselle/16 Gm Bottle) 1 spray NARES-BOTH QHSPRN PRN Reason: Nasal Congestion Stop: 01/09/23 15:16 Magnesium Sulfate (Magnesium Sulf 2gm-*Swfi*) 2 gm in 50 mls @ 25 mls/hr IV DAILY PRN PRN Reason: Magnesium Level < 1.5 Stop: 01/09/23 14:40 Cefepime HCl (Maxipime) 2 gm in 50 mls @ 100 mls/hr IV Q12H [facility] Last Admin: 01/14/22 03:05 Dose: 100 mls/hr Vancomycin HCl 1.25 gm/ (Dextrose) 275 mls @ 183.333 mls/hr IV Q24H [facility] Stop: 01/13/23 18:59 Last Infusion: 01/13/22 21:17 Dose: Infused Levothyroxine Sodium (Levothyroxine 150 Mcg Tablet) 150 mcg PO DAILY@0630 [facility] Stop: 01/10/23 06:29 Last Admin: 01/14/22 05:54 Dose: 150 mcg Magnesium Hydroxide (Magnesium Hydroxide Susp 30 Ml Udc) 30 ml PO BID PRN PRN Reason: Constipation Stop: 01/09/23 14:40 Magnesium Oxide (Magnesium Oxide 400 Mg Tablet) 400 mg PO DAILY [facility] Stop: 01/10/23 08:59 Last Admin: 01/14/22 08:04 Dose: 400 mg Nitroglycerin (Nitroglycerin 0.4 Mg Tab.Subl) 0.4 mg SUBLINGUAL Q5MIN.X3 PRN PRN Reason: Chest Pain Stop: 01/09/23 14:40 Pom Eszopiclone 3 Mg (Tablet) 3 mg PO HS [facility] Stop: 01/11/23 21:59 Last Admin: 01/13/22 21:27 Dose: 3 mg Nystatin (Nystatin 100,000 Unit/Gram Powder 15 Gm Bottle) 1 applic TOPICAL TID [facility] Stop: 01/09/23 21:59 Last Admin: 01/14/22 08:04 [...] almost 2 days. Urinalysis was sent yesterday thatdid havesome RBCs but minimal WBCs and no bacteria seen. Urine culture pending. Patient's temperature curve quickly resolved and remains normal. He has been onbroad-spectrum antibiotic therapy but noclear infection has been found to date. Blood cultures to be negative at 48 hours later today and if urine culture remains negative we will plan on stopping antibiotics after tonight's last dose. We then can observe off antibiotic. Uric acid was within normal limits Documented By: Frankie Reynolds MD 01/14/22934 Signed By: <Electronically signed by MD Frankie Reynolds> 01/14/2214 [facility] Work Phone: 1(591) 294-759111-09-2022 Progress note Author Mani Dickens [facility] January 13, 2022 6:10pmNote Date/TimeNov2021 8:13[place] [id number] Neurology Progress Note Signed with Addenda Patient: Tavo Wallis Jr MR# : [id number] : 1940 Acct:[id number] Age/Sex: 81 / M Adm Date: 2 Loc: Room: [address] [place] [address] Type: ADM IN Attending Dr: Raji Ennis MD Copies to: ~ ADDENDUM1 The patient is an 81-year-old male with chronic back pain and increased difficulty ambulating admitted to the hospital due to difficulty getting around. The patient had an MRI scan of the lumbar spine which did not reveal evidence of an acute process. There is no evidence of recurrent ependymoma orsevere degenerative changes. The patient does have moderate degenerative disc disease for which shehas seen pain management in the past likely [...] Decreased sensation be low the knee to allmodalities. CEREBELLAR EXAM: * Alternating movements are intact and normal in bilateral upper extremities * Alternating movements are intact and normal in lower extremities * Unable to test finger-nose or [id number]-xi-[id number] due to drowsiness REFLEX EXAM: * 1/4 [...] Therapy Recommendations: OT Recommendations OT Recommended Discharge Longterm Facility Location OT Recommended Services at Physical Therapy,Occupational Therapy Discharge PT Recommendations PT Recommended Discharge Longterm Facility Location PT Recommended Services at Physical [...] which he describes as a dull ache. Chroniclow back painand lower extremity weakness with progressive [...] falls Status: Acute Documented By: MEI Tristan 09 Signed By: <Electronically signed by MEI Knight> 01/13/22 1520 [facility] Work Phone: [phone] 141-484611-09-2022 Progress note Author Raji [facility] January 13, 2022 3:44pmNote Date/TimeNovember 2021 3:27[place] [address] Hospitalist Progress Note Signed Patient: Tavo Wallis MR# : [id number] : 1940 Acct:[id number] Age/Sex: 81 / M Adm Date: 2 Loc: 3T Room: [address] [place] [address] Type: ADM IN Attending Dr: Raji Ennis [...] mg 01/09/22 14:41 Bisacodyl 10 Mg Supp.Rect SD 01/09/23 14:40 DAILY PRN Constipation Bisacodyl 10 mg 01/09/22 14:41 01/12/22 08:22 Bisacodyl 5 Mg Tablet.Dr PO 01/09/23 14:40 10 mg DAILY PRN Administration Constipation Bumetanide 1 mg 01/13/22 16:00 Bumetanide 1 Mg Tablet PO 01/13/23 15:59 BID@0800,1600 [facility] Docusate Sodium 100 mg 01/09/22 21:00 01/13/22 09:43 Docusate 100 Mg Capsule PO 01/09/23 20:59 100 mg BID ANIBAL Administration Fluticasone Propionate 1 spray 01/09/22 15:17 Fluticasone Propionate Moselle 120 Moselle/16 Gm Bottle NARES-BOTH 01/09/23 15:16 QHS PRN [...] signed by Raji Ennis MD> 01/13/[address] [facility] Work Phone: [phone] 797-200911-09-2022 Consult note Author Frankie Reynolds [facility] January 13, 2022 10:45amNote Date/TimeNovember 2021 10:45amA[place] [id number] Infect. Disease Consult Note Signed Patient: Tavo Wallis Jr MR# : [id number] : 1940 Acct:[id number] Age/Sex: 81 / M Adm Date: 2 Loc: 3T Room: [address] [place] [address] Type: ADM IN Attending Dr: Raji Ennis MD Copies to: MD Opal Giles DO Michael S Blank, MD~ HPI Data of Consult Consult date: 01/13/22 Requesting Physician: Raji Ennis MD Primary Care Provider: Opal Ga DO Consult Narrative History of present illness: Mr. Wallis is a 81 year old male who was admitted back on the fifth and at thattime was afebrile. He came into the hospital after having falls at home. Laboratory data and imaging suggested acute onchronic congestive heart failure so he was managed [...] negative unless noted below or in HPI [facility] Attestation Statement: The following information was [...] Bisacodyl (Bisacodyl 10 Mg Supp.Rect) 10 mg SD DAILY PRN PRN Reason: Constipation Stop: 01/09/23 14:40 Bisacodyl (Bisacodyl 5 Mg Tablet.Dr) 10 mg PO DAILY PRN PRN Reason: Constipation Stop: 01/09/23 14:40 Last Admin: 01/12/22 08:22 Dose: 10 mg Bumetanide (Bumetanide 1 Mg/4 Ml Vial) 1 mg IV-PUSH BID@0800,1600 [facility] Stop: 01/13/23 07:59 Last Admin: 01/13/22 09:43 Dose: 1 mg Docusate Sodium (Docusate 100 Mg Capsule) 100 mg PO BID [facility] Stop: 01/09/23 20:59 Last Admin: 01/13/22 09:43 Dose: 100 mg Fluticasone Propionate (Fluticasone Propionate Moselle 120 Moselle/16 Gm Bottle) 1 spray NARES-BOTH QHSPRN PRN Reason: Nasal Congestion Stop: 01/09/23 15:16 Magnesium Sulfate (Magnesium Sulf 2gm-*Swfi*) 2 gm in 50 mls @ 25 mls/hr IV DAILY PRN PRN Reason: Magnesium Level < 1.5 Stop: 01/09/23 14:40 Cefepime HCl (Maxipime) 2 gm in 50 mls @ 100 mls/hr IV Q12H [facility] Last Admin: 01/13/22 03:07 Dose: 100 mls/hr Levothyroxine Sodium (Levothyroxine 150 Mcg Tablet) 150 mcg PO DAILY@0630 [facility] Stop: 01/10/23 06:29 Last Admin: 01/13/22 06:26 Dose: 150 mcg Magnesium Hydroxide (Magnesium Hydroxide Susp 30 Ml Udc) 30 ml PO BID PRN PRN Reason: Constipation Stop: 01/09/23 14:40 Magnesium Oxide (Magnesium Oxide 400 Mg Tablet) 400 mg PO DAILY [facility] Stop: 01/10/23 08:59 Last Admin: 01/13/22 09:43 Dose: 400 mg Nitroglycerin (Nitroglycerin 0.4 Mg Tab.Subl) 0.4 mg SUBLINGUAL Q5MIN.X3 PRN PRN Reason: Chest Pain Stop: 01/09/23 14:40 Pom Eszopiclone 3 Mg (Tablet) 3 mg PO HS [facility] Stop: 01/11/23 21:59 Last Admin: 01/12/22 22:51 Dose: 3 mg Nystatin (Nystatin 100,000 Unit/Gram Powder 15 Gm Bottle) 1 applic TOPICAL TID [facility] Stop: 01/09/23 21:59 Last Admin: 01/13/22 09:43 [...] lumbar spine pending from yesterday. 01/12/22 Chest x-ray with resolving pulmonary edema. A&P - Infectious [...] lower extremities and the ankle pain with discomfortwe will check a serum uric acid but clinically he does not have any joints that appear consistent with acute gout. Documented By: Frankie Reynolds MD 01/13/22 1033 Signed By: <Electronically signed by MD Frankie Reynolds> 01/13/22 1044 [facility] Work Phone: [phone] Progress note Author W Be Mcintyre [facility] January 12, 2022 6:11pmNote Date/TimeNov2021 6:11pm[place] [address] Cardiology Progress Note Signed Patient: Tavo Wallis Jr MR# : [id number] : 1940 Acct:[id number] Age/Sex: 81 / M Adm Date: 2 Loc: Room: [address] [place] [address] Type: ADM IN Attending Dr: Raji Ennis MD Copies to: ~ Date of Service: 01/12/2022 Subjective Principal diagnosis: Atrial fibrillation, bradycardia, diastolic CHF Interval history: Mr. Wallis endorses improved shortness of breath today. Edema in b/l LE continues to diminish. Patient continues to remain in normal rate without episode of bradycardia with heart rate ranging 67-58in the past 24 hours. Saturating well on [...] % (Auto) 76.3 Lymph % (Auto) 12.2 [place] % (Auto) 9.1 Eos % (Auto) 1.9 Baso % (Auto) 0.5 Neut # (Auto) 7.7 Lymph # (Auto) 1.2 [place] # (Auto) 0.9 H Eos # (Auto) [...] 2.9 Globulin (PEP) 2.4 Albumin/Globulin (PEP) 1.2 Hohcr-0-Brolovnpw 0.4 Ajpaa-4-Fnfifgitp 0.7 Beta Globulins 0.6 L Gamma Globulins 0.8 M-Franky Not observed PEP Note IgG 816 IgA 171 IgM 105 Serum Immunofixation 01/12/22 06:42 Corrected WBC Uncorrected WBC Count RBC Hgb Hct MCV MCH MCHC RDW Plt Count MPV Neut % (Auto) Lymph % (Auto) [place] % (Auto) Eos % (Auto) Baso % (Auto) Neut # (Auto) Lymph # (Auto) [place] # (Auto) Eos # (Auto) Baso # (Auto) Nucleated RBC % (auto) PHA Creatinine Clear Sodium Potassium Chloride Carbon Dioxide Anion Gap BUN Creatinine Est GFR ( Amer) Est GFR (Non-Af Amer) Glucose Calcium C-Reactive Prot, Quant 8.4 H Serum Total Protein Albumin (Send Out) Globulin (PEP) Albumin/Globulin (PEP) Ayvwh-9-Beapjgdxv Dxotd-0-Zlsvatjnm Beta Globulins Gamma Globulins M-Franky PEP Note [...] by Bhupinder Mcintyre DO> 01/12/22 1811 [facility] Work Phone: [phone] 325-846511-08-2022 Progress note Author Raji Ennis [facility] January 12, 2022 4:38pmNote Date/TimeNov2021 4:38pm[place] [address] Hospitalist Progress Note Signed Patient: Tavo Wallis Jr MR# : [id number] : 1940 Acct:[id number] Age/Sex: 81 / M Adm Date: 2 Loc: Room: [address] [place] [address] Type: ADM IN Attending Dr: Raji Ennis MD Copies to: ~ Date of Service: 01/12/2022 Subjective Subjective Narrative: Patient seen and examined. Patient appears slightly lethargic and is confused. He could tell me hisname but could not tell me the place or time. Per RN patient was awake, alert and oriented early inthe morning but appeared confusedafter receiving Dilaudid for [...] mg 01/09/22 14:41 Bisacodyl 10 Mg Supp.Rect SD 01/09/23 14:40 DAILY PRN Constipation Bisacodyl 10 [...] Propionate 1 spray 01/09/22 15:17 Fluticasone Propionate Moselle 120 Moselle/16 Gm Bottle NARES-BOTH 01/09/23 15:16 QHS PRN [...] By: <Electronically signed by Raji Ennis MD> 01/12/228 [facility] Work Phone: 1(463) 492-553711-08-2022 Progress note Author Mani Dickens [facility] January 12, 2022 4:10pmNote Date/TimeNov2021 8:19[place] [address] Neurology Progress Note Signed Patient: Tavo Wallis Jr MR# : [id number] : 1940 Acct:[id number] Age/Sex: 81 / M Adm Date: 2 Loc: Room: [address] [place] [address] Type: ADM IN Attending Dr: Raji Ennis [...] extremities * Unable to test finger-nose or zsio-qq-tmjl due to drowsiness REFLEX EXAM: * 1/4 [...] Therapy Recommendations: OT Recommendations OT Recommended Discharge Longterm Facility Location OT Recommended Services at Physical Therapy,Occupational Therapy Discharge PT Recommendations PT Recommended Discharge Longterm Facility Location PT Recommended Services at Physical [...] which he describes as a dull ache. Chroniclow back painand lower extremity weakness with progressive [...] the plan of care and confirmed the SENIOR ACCOUNTING MANAGER note The patient is an 81-year-old man with history of cognitive impairment, atrial fibrillation on chronic anticoagulation, obstructive sleep apnea, and degenerative joint disease. 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 The [...] by MD Mani Dickens> 01/12/22 1610 [facility] Work Phone: 1(994) 199-837511-07-2022 Progress note Author Raji Ennis [facility] January 11, 2022 5:04pmNote Date/TimeNov2021 5:[address] [address] Hospitalist Progress Note Signed Patient: Tavo Wallis Jr MR# : [id number] : 1940 Acct:[id number] Age/Sex: 81 / M Adm Date: 2 Loc: Room: [address] [place] [address] Type: ADM IN Attending Dr: Raji Ennis [...] mg 01/09/22 14:41 Bisacodyl 10 Mg Supp.Rect SD 01/09/23 14:40 DAILY PRN Constipation Bisacodyl 10 [...] Propionate 1 spray 01/09/22 15:17 Fluticasone Propionate Moselle 120 Moselle/16 Gm Bottle NARES-BOTH 01/09/23 15:16 QHS PRN [...] Tablet PO 01/11/23 21:59 HS [facility] Nystatin 1 applic 01/09/22 22:00 01/11/22 15:24 [...] prophylaxis Documented By: Raji Ennis MD 01/11/22 0407 Signed By: <Electronically signed by Raji Ennis MD> 01/11/22 8714 [facility] Work Phone: 1(843) 441-305111-07-2022 Progress note Author Mani Dickens [facility] January 11, 2022 5:02pmNote Date/TimeNov2021 8:55[place] [address] Neurology Progress Note Signed Patient: JadynTavo sevilla Jr MR# : [id number] : 1940 Acct:[id number] Age/Sex: 81 / M Adm Date: 2 Loc: 3T Room: [address] [place] [address] Type: ADM IN Attending Dr: Raji Ennis [...] weakness (Bilateral lower extremity), Reports frequent falls, Reportsparesthesias, Reports vertigo and Reports weakness Exam Physical [...] knee to all modalities. CEREBELLAR EXAM: * Akzxch-th-uspi and alternating movements are intact and normal in bilateral upper extremities * Uotj-zd-qjqr and alternating movements are intact and normal in lower extremi ties REFLEX EXAM: * 03/10 throughout Objective Vital [...] Therapy Recommendations: OT Recommendations OT Recommended Discharge Longterm Facility Location OT Recommended Services at Physical Therapy,Occupational Therapy Discharge PT Recommendations PT Recommended Discharge Longterm Facility Location PT Recommended Services at Physical [...] which he describes as a dull ache. 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 The patient statesthat he has had progressive weakness of his [...] cannot exclude superimposed degenerative lumbar spine disease contributingto spinal canal stenosis or polyradiculopathy contributing to lower extremity weakness. I will obtain an MRI scan of the lumbar spine to assess for any structural lesions which may be contributing tothe patient's symptoms. We will have physical therapy, [...] <Electronically signed by MD Mani Dickens> 01/11/22 170 [facility] Work Phone: 1([phone]) 139-601711-07-2022 Progress note Author W Be Mcintyre [facility] January 11, 2022 2:09pmNote Date/TimeNov2021 2:09[place] [address] Cardiology Progress Note Signed Patient: Tavo Wallis Jr MR# : [id number] : 1940 Acct:[id number] Age/Sex: 81 / M Adm Date: 2 Loc: Room: [address] [place] [address] Type: ADM IN Attending Dr: Raji Enins [...] % (Auto) 73.8 Lymph % (Auto) 13.7 [place] % (Auto) 9.6 Eos % (Auto) 2.2 Baso % (Auto) 0.7 Neut # (Auto) 6.3 Lymph # (Auto) 1.2 [place] # (Auto) 0.8 Eos # (Auto) 0.2 [...] by Bhupinder Mcintyre DO> 01/11/22 1409 [facility] Work Phone: 1([phone] 590-740311-06-2022 Progress note Author Dharmesh Zavala [facility] January 10, 2022 8:54pmNote Date/TimeNov2021 8:54[place] [address] Hospitalist Progress Note Signed Patient: Tavo Wallis Jr MR# : [id number] : 1940 Acct:[id number] Age/Sex: 81 / M Adm Date: 2 Loc: Room: [address] [place] [address] Type: ADM IN Attending Dr: Dharmesh Zavala DO Copies to: ~ Date of Service: 01/10/2022 Subjective Subjective Narrative: When I entered the room the patient tells me that he is getting a pain in the thighs on the top of his legs. He does mention that the people in [place] told me that was due to the [...] mg 01/09/22 14:41 Bisacodyl 10 Mg Supp.Rect SD 01/09/23 14:40 DAILY PRN Constipation Bisacodyl 10 mg 01/09/22 14:41 Bisacodyl 5 Mg Tablet.Dr PO 01/09/23 14:40 DAILY PRN Constipation Bumetanide 1 mg 01/09/22 15:30 01/10/22 14:42 Bumetanide 1 Mg/4 Ml Vial IV-PUSH 01/09/23 15:29 1 mg Q8H ANIBAL Administration Docusate Sodium 100 mg 01/09/22 21:00 01/10/22 08:58 Docusate 100 Mg Capsule PO 01/09/23 20:59 Not Given BID [facility] Fluticasone Propionate 1 spray 01/09/22 15:17 Fluticasone Propionate Moselle 120 Moselle/16 Gm Bottle NARES-BOTH 01/09/23 15:16 QHS PRN [...] signed by Dharmesh Zavala DO> 01/10/222053 [facility] Work Phone: [phone] Consult note Author Vikas Mane [facility] January 10, 2022 12:35pmNote Date/TimeNov2021 9:20[place] [address] Neurology Consult Note Signed Patient: Tavo Wallis Jr MR# : [id number] : 1940 Acct:[id number] Age/Sex: 81 / M Adm Date: 2 Loc: Room: [address] [place] [address] Type: ADM IN Attending Dr: Dharmesh Zavala DO Copies to: DO Opal Pollock,DO Dharmesh Zavala DO~ HPI Consult Date: 01/10/22 Vehicle Service Agent: Vikas Mane DO PMFSH Vaccinated for COVID-19?: [...] Esa Cardoso M.D.01/09/2022 10:11 AM Dictation Location: [place] [address] Renal Ultrasound 01/10/22 05:00 IMPRESSION: No hydronephrosis. Impression dictated by: Esa Cardoso M.D.01/10/2022 9:07 AM Dictation Location: [place] [address] Assessment/Plan (1) Falls frequently: Assessment/Problem Details: HPI: [...] bilateral pleural effusions. New macrocytosis. Most recent EFwas acceptable. Recent constipation. Recently taken off some medications that were meant to help with prostate issues. Sees urology. Reported history of an unspecified tumor of the lumbar spine. Daughter had handwritten note that said ependymoma. 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 He said Dr. Matias did the operation who I do not think was in practice that longago but I could be wrong. They were [...] rapidly alternating movements. No limb dysmetria with vwsmnm-evhs-hcitwb testing. DATA REVIEW: MRI lumbar spine from [...] <Electronically signed by Vikas Mane DO> 01/10/[address] [place] [address] Work Phone: [phone]) 190-831611-06-2022 Consult note Author Marv Urena [facility] January 10, 2022 11:32amNote Date/TimeNov2021 11:32[place] [address] Cardiology Consult Note Signed Patient: Tavo Wallis Jr MR# : [id number] : 1940 Acct:[id number] Age/Sex: 81 / M Adm Date: 2 Loc: Room: [address] [place] [address] Type: ADM IN Attending Dr: Dharmesh Zavala DO Copies to: DO Marv Catalan MD, [facility] Dharmesh Zavala DO~ Cardiology HPI History of Present Illness Consult Date: 01/10/22 Reason for Consult: Bradycardia HPI: Mr. Wallis is a 81 year old male who is being seen at request of the hospitalist for evaluation ofbradycardia. Patient is known to have chronic atrial [...] atrial fibrillation and at times he has pausesupto 3 seconds. The concern was regarding the [...] He has adequate social support at home. [facility]-19?: Yes Medical History (Updated [...] x10E3/uL Lymph # (Auto) 1.0 (1.00-4.8) x10E3/uL [place] # (Auto) 1.0 H (0.0-0.8) x10E3/uL Eos [...] and interpreted as documented below: (Atrial fibrillation withPVCs) A&P - Cardiology (1) HFrEF (heart failure [...] ejection fraction remains low he does need beta-saroj therapy therefore he will need apacemaker. Code(s): I48.91 - Unspecified atrial fibrillation (3) Bradycardia: Assessment/Problem Details: Caused by atrial fibrillation with slow ventricular response on 2 agents contributing to bradycardia that is digoxin and Coreg. Plan: Hold off on digoxin and Coreg for today and tomorrow, reassess ejection fractionby echo tomorrow Code(s): R00.1 - Bradycardia, unspecified Documented By: Marv Urena MD, [facility] 2 1125 Signed By: <Electronically signed by [facility] Marv Urena> 01/10/22 1132 [facility] Work Phone: [phone] 461-621811-05-2022 History and physical note Author Dharmesh Zavala [facility] January 09, 2022 3:30pmNote Date/TimeNov2021 3:[place] [address] Hospitalist H&P Signed Patient: Tavo Wallis Jr MR# : [id number] : 1940 Acct:[id number] Age/Sex: 81 / M Adm Date: 2 Loc: Room: [address] [place] [address] Type: ADM IN Attending Dr: Dharmesh Zavala [...] May 2016. Minimal coronary artery disease but isleft-ventricular ejection fraction was reduced at 35 to [...] patient describes that he was using his walkerto navigate through the home where he lives [...] that he had seen a urologist in [place] recently. Patient used to be on a number of prostate medications but apparently they were stopped because they are not doing what they are supposed to be doing. The patient andhis daughter have a discussion about what urology was doing for the situation without finding a specific answer. Patient also describes that he has been veryconstipated lately and takes an unspecified zqyk-bxx-ukocyvh generic stool softener. His daughter does point [...] has handwritten note from home which seems tosay ependymoma but has some other letters on it that I cannot tell what it is trying to spell. Itseems like he got a number radiofrequency ablations by pain management doctor in [place]. Review of Systems Review of Systems Review [...] spine, thoracic spine, lumbar spineand sacrum does notreveal any point focal tenderness. Amazingly he does not really have any bruises on his back. Thereis a small scar in the lumbar regionfrom [...] % (Auto) 13.5 % (.) 01/09/22 10:36 [place] % (Auto) 14.2 % (.) 01/09/22 10:36 Eos % (Auto) 0.1 % (.) 01/09/22 10:36 Baso % (Auto) 1.0 % (.) 01/09/22 10:36 Neut # (Auto) 4.3 x10E3/uL (1.8-7.7) 01/09/22 10:36 Lymph # (Auto) 0.8 x10E3/uL (1.00-4.8) L 01/09/22 10:36 [place] # (Auto) 0.9 x10E3/uL (0.0-0.8) H 01/09/22 [...] pH 5.5 (5.0-9.0) 01/09/22 12:42 Ur Specific Delta 1.018 (1.001-1.030) 01/09/22 12:42 Urine Protein Trace [...] lumbar spine. Documented By: Dharmesh Zavala DO 1516 Signed By: <Electronically signed by Dharmesh Zavala, > 01/09/22 1530 [facility] Work Phone: 1(796) 868-211111-03-2022 Evaluation note* Encounter Date Diagnosis Assessment Notes [...] some rug burn on his bilateral knees. Jan,Laceration of left upper arm, initial encounter (ICD-10 [...] in a week to re-evaluate the area. [facility] Other 10-21-2022 Evaluation note* Encounter Date Diagnosis Assessment Notes Treatment Notes Treatment Clinical Notes Dec, Lower extremity edema (ICD-10 - R60.0) [facility] Other 10-13-2022 NoteCONSULTATION CONSULTATION DATE: 12/17/2021 HISTORY [...] next refill, we will change it to [place] 5/325 daily p.r.n. and the patient is encouraged to increase oral fluids and to continue with his stool softener on a daily basis. Heat education was discussed with the patient, as far as frequency and consistency. We will see him in three months' time, unless otherwise indicated, and all questions answered today.[facility] [id number] NoteCONSULTATION CONSULTATION DATE: 11/12/2021 HISTORY OF PRESENT [...] followed up in the office post procedure.[facility] [id number] Evaluation note* Encounter Date Diagnosis Assessment Notes Treatment Notes Treatment Clinical Notes Oct, Atrial fibrillation (ICD-10 - I4 8.91) Blood pressure upon check in is WNL. He is to follow with cardiology as scheduled. Refill provided for the klor-con. Oct,HF (congestive heart failure) (ICD-10 - I50.9) Patient reports continued swelling despite the Bumex. He does not take this daily but admits he took it every day for three days in a row and lost 9lbs. He was instructed to take a 1/2 tablet every day in hopes to manage his swelling better. He voiced understanding. [facility] Other 07-25-2022 Evaluation note* Encounter Date Diagnosis Assessment Notes Treatment Notes Treatment Clinical Notes Sep, CHF (congestive heart failure) ( ICD-10 - I50.9) [facility] Other 07-08-2022 Evaluation note* Encounter Date Diagnosis Assessment Notes Treatment Notes Treatment Clinical Notes Sep, CHF (congestive heart failure) ( ICD-10 - I50.9) Patient is to hold bumex until re-evaluated in one month per Dr. Opal Ga. [facility] Other 07-07-2022 Evaluation note* Encounter Date Diagnosis Assessment Notes Treatment Notes Treatment Clinical Notes Sep, Atrial fibrillation (ICD-10 - I4 8.91) [facility] Other 07-01-2022 Evaluation note* Encounter Date Diagnosis Assessment Notes Treatment Notes Treatment Clinical Notes Sep, Insomnia (ICD-10 - G47.00) Sep,Gout (ICD-10 - M10.9) [facility] Other 06-27-2022 Evaluation note* Encounter Date Diagnosis Assessment Notes Treatment Notes Treatment Clinical Notes Aug, Hypothyroidism, unspecified (ICD -10 - E03.9) Lab results indicate that patient is on too much thyroid supplement at this time. Need to decrease dose to 137 mcg daily and will recheck this level again in 4 months. Aug,Hypertension (ICD-10 - I10) Lab results reviewed with patient. Levels are stable. Blood pressure is good on current regimen. Aug,trial fibrillation (ICD-10 - I48.91) Patient is under the care of Cardiology. He is currently is in AF today. He did see watch crystal edge grinder a few weeks ago and is stable at this time. He will see him again in one year. Sooner if needed. Continue with current regimen. Aug,Hyperlipidemia (ICD-10 - E78.5) Lipid panel reviewed with patient. Levels are well controlled on current meds. Liver enzymes are within normal limits. No increase in myalgia or joint pain. Tolerating statin therapy well. This will be monitored Aug,HF (congestive heart failure) (ICD-10 - I50.9) Lab results have been reviewed with patient. Renal function has improved. Electrolytes normal. Glucose is stable. Patient will continue with current medications at this time. [facility] Other 06-09-2022 NoteCONSULTATION CONSULTATION DATE: 08/13/2021 This [...] in three months' time unless otherwise indicated. [facility] Signed and Approved by: NATACHA RODARTE . 08/20/2021 16:02:00[facility] [id number] Evaluation note* Encounter Date Diagnosis Assessment Notes Treatment Notes Treatment Clinical Notes May, Insomnia (ICD-10 - G47.00) [facility] Other 01-05-2022 Evaluation note* Encounter Date Diagnosis Assessment Notes Treatment Notes Treatment Clinical Notes Mar, Atrial fibrillation (ICD-10 - I4 8.91) [facility]idi Other 12-30-2021 Evaluation note* Encounter Date Diagnosis Assessment Notes Treatment Notes Treatment Clinical Notes Feb, Insomnia (ICD-10 - G47.00) [facility]idi Other 11-15-2021 Evaluation note* Encounter Date Diagnosis Assessment Notes Treatment Notes Treatment Clinical Notes Jan, Chronic pain (ICD-10 - G89.29) Patient is to follow with Dr. Brambila as scheduled. He is scheduled for an ablation tomorrow. Jan,trial fibrillation (ICD-10 - I48.91) Patient is to continue to follow with Dr. Mcintyre as scheduled. Patient states this is every 6 months. Jan,Hypothyroidism, unspecified (ICD-10 - E03.9) Jan,Hyperlipidemia (ICD-10 - E78.5) Jan,PH (benign prostatic hypertrophy) (ICD-10 - N40.0) Patient is to continue following with Dr. Berkowitz Jan,creening for prostate cancer (ICD-10 - Z12.5) rimidi Other 03-19-2007 History general Narrative - Reported* Type Description Date Medical History EKG 05-23-2006 Medical HistoryMRI Lumbar Spine 01-13-11; [facility] NorthMedical Historyleft hip replacement 7-37-53Rhyuarh Bsyajro10/18/14[facility] Historyfollows with urologyMedical History05/11/16 Stress TestMedical Historyf/u with Dr Mcintyre for CHF, A-FibMedical HistoryDr Brambila pain mgmt- back spondylolysisMedical HistoryMUGA Stress test 4/10/17 NOHCMedical History 05/10/2018 Colonscopy due to positive cologuard- polypectomy- Dr. Sweet Historyvenous insufficiencyMedical HistoryHTNMedical HistoryDJDMedical History HypothyroidismMedical HistoryMild CRIMedical HistoryCHFSurgical HistoryLeg and ankleSurgical HistoryBackSurgical HistoryBoth ShouldersSurgical HistoryHand Surgical HistoryNoseSurgical HistoryTumor removed from back that was in the ooqvd41-48-7500Ybwsxibw Historyleft hip sjldkykbjtp5-30-34Lvuwacfj History Bilateral Axhdqwrg1618Dohkwwqe HistoryLTJADON Lezama11/05/19[facility], A-Fib04/2016 rimidi Other [id number] History general Narrative - Reported* Type Description Date Medical History EKG 05-23-2006 Medical HistoryMRI Lumbar Spine 01-13-11; [facility] History[facility] replacement 0-37-70Yegnkrt Pweqdpp72/18/14-[facility] Historyfollows with urologyMedical History05/11/16 Stress TestMedical Historyf/u with Dr Mcintyre for CHF, A-FibMedical HistoryDr Brambila pain mgmt- back spondylolysisMedical HistoryMUGA Stress test 06/14/16 NOMedical History 05/10/2018 Colonscopy due to positive cologuard- polypectomy- Dr. Sweet Historyvenous insufficiencyMedical HistoryHTNMedical HistoryDJDMedical History HypothyroidismMedical HistoryMild CRIMedical HistoryCHFMedical Rgbxggf9-3-4984 Bilateral lumbar medical branch blockSurgical HistoryLeg and ankleSurgical HistoryBackSurgical HistoryBoth ShouldersSurgical HistoryHandSurgical History NoseSurgical HistoryTumor removed from back that was in the -04-9480 Surgical Historyleft hip -10-44Fprgwpwt HistoryBilateral Cataract 2018Surgical HistoryLTJADON Lezama11/05/19Hospitalization HistoryFR- CHF, A-Fib04/2016 rimidi Other Consult note Author Vikas Mane [facility] January 10, 2022 12:35pmNote Date/TimeNov2021 9:20[place] [address] Neurology Consult Note Signed Patient: Tavo Wallis Jr MR# : [id number] : 1940 Acct:[id number] Age/Sex: 81 / M Adm Date: 2 Loc: 3T Room: [address] [place] [address] Type: ADM IN Attending Dr: Dharmesh Zavala DO Copies to: DO Opal Pollock,DO Dharmesh Zavala DO~ HPI Consult Date: 01/10/22 Vehicle Service Agent: Vikas Mane DO PMFSH Vaccinated for COVID-19?: [...] Esa Cardoso M.D.01/09/2022 1:02 PM Dictation Location: [facility]--[address] 01/09/22 09:47 IMPRESSION: No acute [...] Esa Cardoso M.D.01/09/2022 10:11 AM Dictation Location: [facility]03 Renal Ultrasound 01/10/22 05:00 IMPRESSION: No hydronephrosis. Impression dictated by: Esa Cardoso M.D.01/10/2022 9:07 AM Dictation Location: [place] [address] Assessment/Plan (1) Falls frequently: Assessment/Problem Details: HPI: [...] bilateral pleural effusions. New macrocytosis. Most recent EFwas acceptable. Recent constipation. Recently taken off some medications that were meant to help with prostate issues. Sees urology. Reported history of an unspecified tumor of the lumbar spine. Daughter had handwritten note that said ependymoma. 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 He said Dr. Matias did the operation who I do not think was in practice that longago but I could be wrong. They were [...] rapidly alternating movements. No limb dysmetria with unpxxh-mtxh-uoqanc testing. DATA REVIEW: MRI lumbar spine from [...] by Vikas Mane DO> 01/10/22 1235 [facility] Work Phone: Consult note Author Marv Urena [facility] January 10, 2022 11:32amNote Date/TimeNov2021 11:32[place] [id number] Cardiology Consult Note Signed Patient: Tavo Wallis Jr MR# : [id number] : 1940 Acct:[id number] Age/Sex: 81 / M Adm Date: 2 Loc: 3T Room: [address] [place] [address] Type: ADM IN Attending Dr: Dharmesh Zavala DO Copies to: DO Marv Catalan MD, [facility] Dharmesh Zavala, ~ Cardiology HPI History of Present Illness Consult Date: 01/10/22 Reason for Consult: Bradycardia HPI: Mr. Wallis is a 81 year old male who is being seen at request of the hospitalist for evaluation ofbradycardia. Patient is known to have chronic atrial [...] atrial fibrillation and at times he has pausesupto 3 seconds. The concern was regarding the [...] He has adequate social support at home. [facility] Vaccinated for COVID-19?: Yes Medical History [...] x10E3/uL Lymph # (Auto) 1.0 (1.00-4.8) x10E3/uL [place] # (Auto) 1.0 H (0.0-0.8) x10E3/uL Eos [...] and interpreted as documented below: (Atrial fibrillation withPVCs) A&P - Cardiology (1) HFrEF (heart failure [...] ejection fraction remains low he does need beta-saroj therapy therefore he will need apacemaker. Code(s): I48.91 - Unspecified atrial fibrillation (3) Bradycardia: Assessment/Problem Details: Caused by atrial fibrillation with slow ventricular response on 2 agents contributing to bradycardia that is digoxin and Coreg. Plan: Hold off on digoxin and Coreg for today and tomorrow, reassess ejection fractionby echo tomorrow Code(s): R00.1 - Bradycardia, unspecified Documented By: Marv Urena MD, [facility] 2 1125 Signed By: <Electronically signed by [facility]> 01/10/22 1131 [facility] Work Phone: Consult note Author Frankie Reynolds [facility] January 13, 2022 10:45amNote Date/TimeNovember 2021 10:45am[place] [id number] Infect. Disease Consult Note Signed Patient: Tavo Wallis Jr MR# : [id number] : 1940 Acct:[id number] Age/Sex: 81 / M Adm Date: 2 Loc: Room: [address] [place] [address] Type: ADM IN Attending Dr: Raji Ennis MD Copies to: MD Opal Giles DO Michael S Blank, MD~ HPI Data of Consult Consult date: 01/13/22 Requesting Physician: Raji Ennis MD Primary Care Provider: Opal Ga DO Consult Narrative History of present illness: Mr. Wallis is a 81 year old male who was admitted back on the and at thattime was afebrile. He came into the hospital after having falls at home. Laboratory data and imaging suggested acute onchronic congestive heart failure so he was managed [...] negative unless noted below or in HPI [facility] Attestation Statement: The following information was [...] Bisacodyl (Bisacodyl 10 Mg Supp.Rect) 10 mg SD DAILY PRN PRN Reason: Constipation Stop: 01/09/23 14:40 Bisacodyl (Bisacodyl 5 Mg Tablet.Dr) 10 mg PO DAILY PRN PRN Reason: Constipation Stop: 01/09/23 14:40 Last Admin: 01/12/22 08:22 Dose: 10 mg Bumetanide (Bumetanide 1 Mg/4 Ml Vial) 1 mg IV-PUSH BID@0800,1600 [facility] Stop: 01/13/23 07:59 Last Admin: 01/13/22 09:43 Dose: 1 mg Docusate Sodium (Docusate 100 Mg Capsule) 100 mg PO BID [facility] Stop: 01/09/23 20:59 Last Admin: 01/13/22 09:43 Dose: 100 mg Fluticasone Propionate (Fluticasone Propionate Moselle 120 Moselle/16 Gm Bottle) 1 spray NARES-BOTH QHSPRN PRN Reason: Nasal Congestion Stop: 01/09/23 15:16 Magnesium Sulfate (Magnesium Sulf 2gm-*Swfi*) 2 gm in 50 mls @ 25 mls/hr IV DAILY PRN PRN Reason: Magnesium Level < 1.5 Stop: 01/09/23 14:40 Cefepime HCl (Maxipime) 2 gm in 50 mls @ 100 mls/hr IV Q12H [facility] Last Admin: 01/13/22 03:07 Dose: 100 mls/hr Levothyroxine Sodium (Levothyroxine 150 Mcg Tablet) 150 mcg PO DAILY@0630 [facility] Stop: 01/10/23 06:29 Last Admin: 01/13/22 06:26 Dose: 150 mcg Magnesium Hydroxide (Magnesium Hydroxide Susp 30 Ml Udc) 30 ml PO BID PRN PRN Reason: Constipation Stop: 01/09/23 14:40 Magnesium Oxide (Magnesium Oxide 400 Mg Tablet) 400 mg PO DAILY [facility] Stop: 01/10/23 08:59 Last Admin: 01/13/22 09:43 Dose: 400 mg Nitroglycerin (Nitroglycerin 0.4 Mg Tab.Subl) 0.4 mg SUBLINGUAL Q5MIN.X3 PRN PRN Reason: Chest Pain Stop: 01/09/23 14:40 Pom Eszopiclone 3 Mg (Tablet) 3 mg PO HS [facility] Stop: 01/11/23 21:59 Last Admin: 01/12/22 22:51 Dose: 3 mg Nystatin (Nystatin 100,000 Unit/Gram Powder 15 Gm Bottle) 1 applic TOPICAL TID [facility] Stop: 01/09/23 21:59 Last Admin: 01/13/22 09:43 [...] Tab.Er.Prt) 20 meq PO QPM [facility] Stop: 01/09/23 20:59 Last Admin: 01/12/22 22:51 Dose: 20 meq Sodium Chloride (Sodium Chloride 0.9 % 10 Ml Syringe) 0 ml IV-PUSH PRN PRN PRN Reason: Flush Stop: 01/09/23 09:37 Last Admin: 01/10/22 23:31 Dose: 10 ml Sodium Chloride (Sodium Chloride 0.9 % 10 Ml Syringe) 0 ml IV-PUSH QSHIFT [facility] Stop: 01/09/23 21:59 Last Admin: 01/13/22 06:26 [...] lumbar spine pending from yesterday. 01/12/22 Chest x-ray with resolving pulmonary edema. A&P - Infectious [...] lower extremities and the ankle pain with discomfortwe will check a serum uric acid but clinically he does not have any joints that appear consistent with acute gout. Documented By: Frankie Reynolds MD 01/13/22 1033 Signed By: <Electronically signed by MD Frankie Reynolds> 01/13/22 1045 [facility] Work Phone: Consult note Author Bayron farnsworth [facility] HospitalNote Date/TimeMay 2024 2:[place] [address] Urology Consult Note Signed Patient: Tavo Wallis Jr MR# : [id number] : 1940 Acct:[id number] Age/Sex: 83 / M Adm Date: 5 Loc: Room: [address] [place] [address] Type: ADM IN Attending Dr: Mario Jordan MD Copies to: MD Sandip Fajardo DO Bayron Tom MD~ History of Present Illness Consult Details Consult Date: 07/13/2024 Reason for Urology Consult: Gross hematuria Requesting Provider: Mario Jordan MD HPI: Patient is a 83-year-old male who urology is consulted for gross hematuria. He has a chronic indwelling Chou catheter and secondary to acute urinary retentionmonths ago for which he has failed multiple void trials. He presented to the emergency room with gross hematuria with clots and his Chou catheter was upsized to a three-way catheter with continuous bladder irrigation initiated. Urine is currently clear yellow. Of note, yesterday, patient had a cystoscopy for evaluation of his bladder outlet with his urologist. Currently doing well. He is slightly hypotensive, has leukocytosis with 26 and is on antibiotics. He denies any prior history of recurrent urinary tract infection, no prior history of nephrolithiasis and he denies any flank pain or suprapubic discomfort. No imaging done on admission. 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 Social History Comments: [facility] Meds Medications and Allergies Allergies fentanyl Allergy (Unknown, Verified 07/12/24 15:55) Dizziness, loopy indomethacin (From Indocin) Allergy (Unknown, Verified 07/12/24 15:55) Dizziness zolpidem (From Ambien) Allergy (Unknown, Verified 07/12/24 15:55) Confusion, memory loss Penicillins Allergy (Verified 07/12/24 15:55) Weakness Home Medications magnesium oxide 400 mg PO DAILY 06/06/23 [History Confirmed 07/12/24] allopurinol 300 mg tablet 300 mg PO DAILY #90 tabs 06/09/23 [Rx Confirmed 07/12/24] atorvastatin 40 mg tablet 40 mg PO DAILY #90 tabs 09/01/23 [Rx Confirmed 07/12/24] eszopiclone 3 mg tablet 3 mg PO QHS 90 days #90 tabs 11/29/23 [Rx Confirmed 07/12/24] levothyroxine 150 mcg tablet (Synthroid) 150 mcg PO QAM #90 tabs 11/29/23 [Rx Confirmed 07/12/24] trazodone 50 mg tablet 50 mg PO QHS PRN insomnia #90 tabs 11/29/23 [Rx Confirmed 07/12/24] acetaminophen 500 mg tablet (Acetaminophen Extra Strength) 500 mg PO TID 03/10/24 [History Confirmed 07/12/24] bumetanide 1 mg tablet 1 mg PO DAILY 03/10/24 [History Confirmed 07/12/24] carvedilol 3.125 mg tablet 3.125 mg PO BID 30 days #60 tabs 03/15/24 [Rx Confirmed 07/12/24] oxycodone-acetaminophen 5 mg-325 mg tablet 1 tab PO Q6HR PRN pain 2 days #8 tabs03/15/24 [Rx Confirmed 07/12/24] apixaban 2.5 mg tablet (Eliquis) 5 mg PO BID 07/12/24 [History Confirmed 07/12/24] doxycycline hyclate 100 mg tablet 100 mg PO BID 07/12/24 [History Confirmed 07/12/24] ipratropium 0.5 mg-albuterol 3 mg (2.5 mg base)/3 mL nebulization soln 3 ml inhalation Q6HR PRN shortness of breath or wheezing 07/12/24 [History Confirmed 07/12/24] potassium chloride 20 mEq tablet,extended release(part/cryst) (Klor-Con M) 20 meq PO DAILY 07/12/24[History Confirmed 07/12/24] Exam Physical Exam Vital Signs: Temp Pulse Resp BP Pulse Ox O2 Del Method O2 Flow Rate 97.8 F 85 20 85/59 L 97 Room Air 2 07/13/24 07:47 07/13/24 13:05 07/13/24 11:40 07/13/24 13:05 07/13/24 11:40 07/13/24 11:40 07/13/24 04:00 Narrative: General: Alert and oriented x 3, NAD Cardiovascular: Regular rate and rhythm Lungs: Nonlabored breathing on supplemental oxygen Abdomen: Soft, nontender, nondistended with no guarding or rigidity noted : No flank or suprapubic tenderness noted, Chou catheter in place with clear yellow urine 22 Japanese three-way Skin: Warm and dry Extremities: No peripheral edema noted Const General: healthy appearing Results - Urology Labs 07/13/24 05:14 07/13/24 05:14 Labs: Laboratory Results - Last 48 hrs. 07/13/24 05:14: Corrected WBC 26.7 H, Uncorrected WBC Count 26.7 H, RBC 2.77 L, Hgb 8.0 L, Hct 25.1L, MCV 90.9, MCH 29.1, MCHC 32.0 L, RDW 18.4 H, Plt Count 179, MPV 7.7, Neut % (Auto) 90.2, Lymph %(Auto) 2.7, [place] % (Auto) 6.8, Eos % (Auto) 0.1, Baso % (Auto) 0.2, Nucleat RBC Rel Count 0.1, Neut# (Auto) 24.1 H, Lymph # (Auto) 0.7 L, [place] # (Auto) 1.8 H, Eos # (Auto) 0.0, Baso # (Auto) 0.1, Platelet Estimate Normal, Large Platelets Slight, Plt Morphology Comment N/A, RBC Morphology N/A, Polychromasia Slight, Hypochromasia Slight, Poikilocytosis Moderate, Anisocytosis Slight, Microcytosis Slight, Tear Drop Cells Slight, Ovalocytes Slight, Acanthocytes (Spur) Slight, Schistocytes Slight, PHA Creatinine Clear 34.84, Sodium 133 L, Potassium 3.9, Chloride 101, Carbon Dioxide 24.2, Anion Gap11.7, BUN 34 H, Creatinine 1.75 H, Est GFR (CKD-EPI) 38.393, Glucose 66 L, Calcium 8.1 L, Phosphorus 3.0, Magnesium 1.8 L, Total Bilirubin 0.5, AST 11 L, ALT 5 L, Alkaline Phosphatase 69, Total Protein 4.9 L D, Albumin 2.6 L, Globulin 2.3, Albumin/Globulin Ratio 1.1 07/12/24 23:39: Lactic Acid 2.2 H* 07/12/24 20:26: Corrected WBC 21.3 H, Uncorrected WBC Count 21.3 H, RBC 3.07 L, Hgb 9.0 L, Hct 28.2L, MCV 91.9, MCH 29.4, MCHC 32.0 L, RDW 18.2 H, Plt Count 217, MPV 7.3, Neut % (Auto) N/A, Lymph % (Auto) N/A, [place] % (Auto) N/A, Eos % (Auto) N/A, Baso % (Auto) N/A, Nucleat RBC Rel Count N/A, Neut # (Auto) N/A, Lymph # (Auto) N/A, [place] # (Auto) N/A, Eos # (Auto) N/A, Baso # (Auto) N/A, BandNeutrophils % 3, Lymphocytes % 2 L, Monocytes % 1 L, Eosinophils % 1, Segmented Neutrophils 93 H, MonocyteDist Width 29.58 H, Platelet Estimate Normal, Plt Morphology Comment Normal, RBC Morphology N/A, Poikilocytosis Slight, Anisocytosis Slight, Microcytosis Slight, Ovalocytes Slight, Stomatocytes Slight, Lactic Acid 3.0 H* 07/12/24 18:49: Lactic Acid 2.2 H* 07/12/24 16:19: Urine Color Red A, Urine Appearance Turbid A, Urine pH , Ur Specific Delta 1.020,Urine Protein , Urine Glucose (UA) , Urine Ketones , Urine Occult Blood , Urine Nitrite , Urine Bilirubin , Urine Urobilinogen , Ur Leukocyte Esterase , Urine RBC Innumerable H, Urine WBC 10-19 H, UrSquamous Epith Cells 0-1, Urine Bacteria 1+ H 07/12/24 15:03: SARS-CoV-2 Rap RNA(RT-PCR) Negative 07/12/24 15:00: Corrected WBC 6.5, Uncorrected WBC Count 6.5, RBC 3.28 L, Hgb 9.9 L, Hct 29.8 L, MCV 90.8, MCH 30.1, MCHC 33.2, RDW 17.9 H, Plt Count 288, MPV7.2, Neut % (Auto) 93.8, Lymph % (Auto) 4.2, [place] % (Auto) 0.4, Eos % (Auto) 1.3, Baso % (Auto) 0.3, Nucleat RBC Rel Count 0.2, Neut # (Auto)6.3, Lymph # (Auto) 0.3 L, [place] # (Auto) 0.0, Eos # (Auto) 0.1, Baso # (Auto) 0.0, Monocyte Dist Width Test not performed, PHA Creatinine Clear 38.97, Sodium 135 L, Potassium 3.9, Chloride 102, Carbon Dioxide 27.2, Anion Gap 9.7, BUN 33 H, Creatinine 1.62 H, Est GFR (CKD-EPI) 42.119, Glucose 69 L, Lactic Acid 2.3 H*, Calcium 9.0, Magnesium 1.7 L, Total Bilirubin 0.6, AST 13, ALT 6 L, Alkaline Phosphatase 100, Troponin I High Sens 21 H, B-Natriuretic Peptide 164.0 H, TotalProtein 6.7, Albumin 3.4 L, Globulin 3.3, Albumin/Globulin Ratio 1.0 Microbiology Microbiology: 07/12/24 16:19 Clean Void Midstream Urine Culture - Preliminary Gram Negative Bacilli 07/12/24 15:00 Blood - Left Arm Blood Culture - Preliminary Pseudomonas aeruginosa 07/12/24 15:00 Blood - Left Arm Bacterial ID (NA Multiplex Assay) - Final 07/12/24 15:07 Blood - Left Forearm Blood Culture - Preliminary Enterococcus faecalis Gram Negative Bacilli 07/12/24 15:07 Blood - Left Forearm Bacterial ID (NA Multiplex Assay) - Final 07/12/24 15:03 Nasopharyngeal SARS-CoV-2, Influenza & RSV (PCR) - Final Assessment/Plan (1) Sepsis: Plan: With leukocytosis of 26, positive blood cultures growing Pseudomonas, Enterococcus faecalis we willobtain a stat CT abdomen pelvis to rule out any obstructive uropathy Continue with broad-spectrum antibiotics and treat with culture sensitive antibiotics once final cultures have resolved Pain and nausea control as needed Appreciate medicine team recommendations for medical management Qualifiers: Sepsis acute organ dysfunction status: without acute organ dysfunction Code(s): A41.9 - Sepsis, unspecified organism (2) Hematuria: Plan: Likely secondary to procedure, traumatic insertion Gross hematuria has resolved. Maintain Chou catheter for now Patient will need to follow-up with his primary urologist upon discharge Qualifiers: Hematuria type: gross Qualified Code(s): R31.0 - Gross hematuria Code(s): R31.9 - Hematuria, unspecified Documented By: Bayron Tom MD 07/13 1444 Signed By: <Electronically signed by Bayron Tom MD> 07/13/24 1449 [facility] Work Phone: Consult note Author Bryce Villeda [facility] HospitalNote Date/TimeMay 2024 12:21pmAlicia Ville [id number] General Surgery Consult Note Signed Patient: Tavo Wallis Jr MR# : [id number] : 1940 Acct:[id number] Age/Sex: 83 / M Adm Date: 5 Loc: 4 Room: [address] [place] [address] Type: ADM IN Attending Dr: Mario Jordan MD Copies to: MD Sandip Fajardo DO~ History of Present Illness Date of consult: 07/14/2024 Requesting/Attending Provider: Mario Jordan MD History of present illness: Tavo is an 83-year-old male with multiple medical conditions including atrialfibrillation, hypothyroid, hypertension, CHF, who presented to the ER from [facility] for hematuria. The patient was admitted for evaluation and treatment and was found to have a raised area on the right lateral anterior calf with surrounding erythema. Consult was placed for surgical evaluation of a possible abscess. The patient states he knows nothing of the area, it does not bother him unless it is touched or hit. He is unaware of any trauma that may have caused the injury. [facility] Medical History Insomnia Hypothyroidism Hypertension Constipation BPH (benign prostatic [...] hyperplasia) Atrial fibrillation History of gastric ulcer 1959's Sleep apnea does not use equipment Hypothyroidism [...] 2011 History of total right knee replacement 2014 History of excision of Zenker's diverticulum Transcervial resection 2009 Family History Mother Alzheimers disease Hx of CABG CAD (coronary artery disease) Myocardial infarction Heart disease Hypertension Brother Myocardial infarction Father Hepatic cirrhosis Sister Cancer Brother Heart disease Legacy FamHx Relation: Brother(s) Son Cancer Legacy FamHx Problem: Diagnosed with Cancer Social History Smoking Status: Former smoker Tobacco Type: cigarettes Substance Use Type: None Substance Abuse Comment: 3 drinks a day >6 Social History Comments: [facility] rehab Allergies & Medications Medications and Allergies Allergies fentanyl Allergy (Unknown, Verified 07/12/24 15:55) Dizziness, loopy indomethacin (From Indocin) Allergy (Unknown, Verified 07/12/24 15:55) Dizziness zolpidem (From Ambien) Allergy (Unknown, Verified 07/12/24 15:55) Confusion, memory loss Penicillins Allergy (Verified 07/12/24 15:55) Weakness Home Medications magnesium oxide 400 mg PO DAILY 06/06/23 [History Confirmed 07/12/24] allopurinol 300 mg tablet 300 mg PO DAILY #90 tabs 06/09/23 [Rx Confirmed 07/12/24] atorvastatin 40 mg tablet 40 mg PO DAILY #90 tabs 09/01/23 [Rx Confirmed 07/12/24] eszopiclone 3 mg tablet 3 mg PO QHS 90 days #90 tabs 11/29/23 [Rx Confirmed 07/12/24] levothyroxine 150 mcg tablet (Synthroid) 150 mcg PO QAM #90 tabs 11/29/23 [Rx Confirmed 07/12/24] trazodone 50 mg tablet 50 mg PO QHS PRN insomnia #90 tabs 11/29/23 [Rx Confirmed 07/12/24] acetaminophen 500 mg tablet (Acetaminophen Extra Strength) 500 mg PO TID 03/10/24 [History Confirmed 07/12/24] bumetanide 1 mg tablet 1 mg PO DAILY 03/10/24 [History Confirmed 07/12/24] carvedilol 3.125 mg tablet 3.125 mg PO BID 30 days #60 tabs 03/15/24 [Rx Confirmed 07/12/24] oxycodone-acetaminophen 5 mg-325 mg tablet 1 tab PO Q6HR PRN pain 2 days #8 tabs03/15/24 [Rx Confirmed 07/12/24] apixaban 2.5 mg tablet (Eliquis) 5 mg PO BID 07/12/24 [History Confirmed 07/12/24] doxycycline hyclate 100 mg tablet 100 mg PO BID 07/12/24 [History Confirmed 07/12/24] ipratropium 0.5 mg-albuterol 3 mg (2.5 mg base)/3 mL nebulization soln 3 ml inhalation Q6HR PRN shortness of breath or wheezing 07/12/24 [History Confirmed 07/12/24] potassium chloride 20 mEq tablet,extended release(part/cryst) (Klor-Con M) 20 meq PO DAILY 07/12/24[History Confirmed 07/12/24] Active Medications Acetaminophen (Acetaminophen 500 Mg Tablet) 500 mg PO TID [facility] Stop: 07/12/25 21:59 Last Admin: 07/14/24 09:05 Dose: 500 mg Acetaminophen (Acetaminophen 325 Mg Tablet) 650 mg PO Q6HR PRN PRN Reason: Pain Scale 1 - 3 or fever Stop: 07/12/25 16:59 Albuterol/Ipratropium (Ipratropium/Albuterol 0.5-3 Mg 3 Ml Ampul.Neb) 3 ml INHALATION Q6HR PRN PRN Reason: shortness of breath or wheezing Stop: 07/12/25 16:56 Allopurinol (Allopurinol 300 Mg Tablet) 300 mg PO DAILY [facility] Stop: 07/13/25 08:59 Last Admin: 07/14/24 09:05 Dose: 300 mg Atorvastatin Calcium (Atorvastatin 40 Mg Tablet) 40 mg PO DAILY [facility] Stop: 07/13/25 08:59 Last Admin: 07/14/24 09:05 Dose: 40 mg Furosemide (Furosemide 40 Mg/4 Ml Vial) 40 mg IV-PUSH BID@0800,1600 [facility] Stop: 07/13/25 07:59 Last Admin: 07/14/24 09:05 Dose: 40 mg Vancomycin HCl 1.25 gm/ (Dextrose) 275 mls @ 183.333 mls/hr IV Q12H [facility] Stop: 07/13/25 17:59 Last Admin: 07/14/24 09:05 Dose: 183.33 mls/hr Cefepime HCl (Maxipime) 2 gm in 50 mls @ 12.5 mls/hr IV Q12H [facility] Last Admin: 07/14/24 09:05 Dose: 12.5 mls/hr Levothyroxine Sodium (Levothyroxine 150 Mcg Tablet) 150 mcg PO DAILY.0630 [facility] Stop: 07/13/25 06:29 Last Admin: 07/14/24 06:43 Dose: 150 mcg Magnesium Oxide (Magnesium Oxide 400 Mg Tablet) 400 mg PO DAILY [facility] Stop: 07/13/25 08:59 Last Admin: 07/14/24 09:05 Dose: 400 mg Eszopiclone 3 Mg (Tablet) 3 mg PO QHS [facility] Stop: 07/12/25 21:59 Last Admin: 07/13/24 21:44 Dose: Not Given Pom (Eszopiclone 3 (Mg Tablet)) 3 mg PO QHS [facility] Stop: 07/20/25 21:59 Oxycodone/Acetaminophen (Oxycodone/Acetaminophen 5-325 Mg Tablet) 1 tab PO Q4H PRN PRN Reason: Pain Scale 4 - 7 Last Admin: 07/13/24 22:05 Dose: 1 tab Polyethylene Glycol (Polyethylene Glycol 3350 17 Gm Powd.Pack) 17 gm PO BID [facility] Stop: 07/14/25 10:04 Potassium Chloride (Potassium Chloride Er 20 Meq Tab.Er.Prt) 20 meq PO DAILY [facility] Stop: 07/13/25 08:59 Last Admin: 07/14/24 09:05 Dose: 20 meq Sennosides (Sennosides Syrup 8.8 Mg/5 Ml Udc) 8.8 mg PO BID [facility] Stop: 07/14/25 10:04 Sodium Chloride (Sodium Chloride 0.9 % 10 Ml Syringe) 0 ml IV-PUSH PRN PRN PRN Reason: Flush Stop: 07/12/25 14:40 Last Admin: 07/12/24 16:12 Dose: 10 ml Trazodone HCl (Trazodone 50 Mg Tablet) 50 mg PO QHS PRN PRN Reason: insomnia Stop: 07/12/25 16:56 Last Admin: 07/13/24 21:44 Dose: 50 mg Vancomycin HCl (Vancomycin - Pharmacy Dosing 1 Each Miscell) 1 each IV ONCE PRN; Protocol PRN Reason: ZZ.Pharmacy Consult Exam Physical Exam Vital Signs: Temp Pulse Resp BP Pulse Ox O2 Del Method O2 Flow Rate 98.3 F 74 18 115/62 97 Room Air 2 07/14/24 08:00 07/14/24 08:00 07/14/24 08:00 07/14/24 08:00 07/14/24 08:00 07/14/24 08:00 07/13/24 04:00 Const General: cooperative, no acute distress and frail appearing Nutritional Appearance: average body habitus Orientation: alert, awake and oriented x3 Resp Effort & Inspection: normal respiratory effort and able to speak in complete sentences Auscultation: clear to auscultation bilaterally GI Inspection: normal to inspection and non-distended Palpation: soft Auscultation: normal bowel sounds Skin Other: Right anterior lateral calf has a 4 cm in diameter raised area with surrounding cellulitis, no evidence of drainage. Results - Gen. Surgery Pain Assessment Lower Back: Pain Description: Chronic and Aching Pain Intensity: 4 Intake and Output 24 hour I&O: Intake & Output 07/13/24 07/14/24 07/14/24 23:59 07:59 15:59 Intake Total 1175 / 1875 250 / 250 Output Total 1800 / 1800 850 / 850 Balance -625 / 75 -600 / -600 Weight 90.2 kg Labs 07/14/24 05:17 07/14/24 05:17 Laboratory Results - last 72 hr 07/14/24 05:17: Corrected WBC 15.7 H, Uncorrected WBC Count 15.7 H, RBC 2.63 L, Hgb 7.8 L, Hct 24.0L, MCV 91.5, MCH 29.8, MCHC 32.5, RDW 18.4 H, Plt Count 147 L, MPV 7.9, Neut % (Auto) 84.9, Lymph %(Auto) 7.4, [place] % (Auto) 6.1, Eos % (Auto) 1.4, Baso % (Auto) 0.2, Nucleat RBC Rel Count 0.1, Neut# (Auto) 13.3 H, Lymph # (Auto) 1.2, [place] # (Auto) 1.0 H, Eos # (Auto) 0.2, Baso # (Auto) 0.0, PHA Creatinine Clear 36.75, Sodium 132 L, Potassium 3.3 L, Chloride 101, Carbon Dioxide 22.1, Anion Gap 12.2, BUN 34 H, Creatinine 1.63 H, Est GFR (CKD-EPI) 41.809, Glucose 81, Calcium 8.2 L, Total Bilirubin 0.4, AST 11 L, ALT 4 L, Alkaline Phosphatase 79, Total Protein 5.2 L, Albumin 2.7 L, Globulin 2.5, Albumin/Globulin Ratio 1.1 07/13/24 05:14: Corrected WBC 26.7 H, Uncorrected WBC Count 26.7 H, RBC 2.77 L, Hgb 8.0 L, Hct 25.1L, MCV 90.9, MCH 29.1, MCHC 32.0 L, RDW 18.4 H, Plt Count 179, MPV 7.7, Neut % (Auto) 90.2, Lymph %(Auto) 2.7, [place] % (Auto) 6.8, Eos % (Auto) 0.1, Baso % (Auto) 0.2, Nucleat RBC Rel Count 0.1, Neut# (Auto) 24.1 H, Lymph # (Auto) 0.7 L, [place] # (Auto) 1.8 H, Eos # (Auto) 0.0, Baso # (Auto) 0.1, Platelet Estimate Normal, Large Platelets Slight, Plt Morphology Comment N/A, RBC Morphology N/A, Polychromasia Slight, Hypochromasia Slight, Poikilocytosis Moderate, Anisocytosis Slight, Microcytosis Slight, Tear Drop Cells Slight, Ovalocytes Slight, Acanthocytes (Spur) Slight, Schistocytes Slight, PHA Creatinine Clear 34.84, Sodium 133 L, Potassium 3.9, Chloride 101, Carbon Dioxide 24.2, Anion Gap11.7, BUN 34 H, Creatinine 1.75 H, Est GFR (CKD-EPI) 38.393, Glucose 66 L, Calcium 8.1 L, Phosphorus 3.0, Magnesium 1.8 L, Total Bilirubin 0.5, AST 11 L, ALT 5 L, Alkaline Phosphatase 69, Total Protein 4.9 L D, Albumin 2.6 L, Globulin 2.3, Albumin/Globulin Ratio 1.1 07/12/24 23:39: Lactic Acid 2.2 H* 07/12/24 20:26: Corrected WBC 21.3 H, Uncorrected WBC Count 21.3 H, RBC 3.07 L, Hgb 9.0 L, Hct 28.2L, MCV 91.9, MCH 29.4, MCHC 32.0 L, RDW 18.2 H, Plt Count 217, MPV 7.3, Neut % (Auto) N/A, Lymph % (Auto) N/A, [place] % (Auto) N/A, Eos % (Auto) N/A, Baso % (Auto) N/A, Nucleat RBC Rel Count N/A, Neut # (Auto) N/A, Lymph # (Auto) N/A, [place] # (Auto) N/A, Eos # (Auto) N/A, Baso # (Auto) N/A, BandNeutrophils % 3, Lymphocytes % 2 L, Monocytes % 1 L, Eosinophils % 1, Segmented Neutrophils 93 H, MonocyteDist Width 29.58 H, Platelet Estimate Normal, Plt Morphology Comment Normal, RBC Morphology N/A, Poikilocytosis Slight, Anisocytosis Slight, Microcytosis Slight, Ovalocytes Slight, Stomatocytes Slight, Lactic Acid 3.0 H* 07/12/24 18:49: Lactic Acid 2.2 H* 07/12/24 16:19: Urine Color Red A, Urine Appearance Turbid A, Urine pH , Ur Specific Delta 1.020,Urine Protein , Urine Glucose (UA) , Urine Ketones , Urine Occult Blood , Urine Nitrite , Urine Bilirubin , Urine Urobilinogen , Ur Leukocyte Esterase , Urine RBC Innumerable H, Urine WBC 10-19 H, UrSquamous Epith Cells 0-1, Urine Bacteria 1+ H 07/12/24 15:03: SARS-CoV-2 Rap RNA(RT-PCR) Negative 07/12/24 15:00: Corrected WBC 6.5, Uncorrected WBC Count 6.5, RBC 3.28 L, Hgb 9.9 L, Hct 29.8 L, MCV 90.8, MCH 30.1, MCHC 33.2, RDW 17.9 H, Plt Count 288, MPV7.2, Neut % (Auto) 93.8, Lymph % (Auto) 4.2, [place] % (Auto) 0.4, Eos % (Auto) 1.3, Baso % (Auto) 0.3, Nucleat RBC Rel Count 0.2, Neut # (Auto)6.3, Lymph # (Auto) 0.3 L, [place] # (Auto) 0.0, Eos # (Auto) 0.1, Baso # (Auto) 0.0, Monocyte Dist Width Test not performed, PHA Creatinine Clear 38.97, Sodium 135 L, Potassium 3.9, Chloride 102, Carbon Dioxide 27.2, Anion Gap 9.7, BUN 33 H, Creatinine 1.62 H, Est GFR (CKD-EPI) 42.119, Glucose 69 L, Lactic Acid 2.3 H*, Calcium 9.0, Magnesium 1.7 L, Total Bilirubin 0.6, AST 13, ALT 6 L, Alkaline Phosphatase 100, Troponin I High Sens 21 H, B-Natriuretic Peptide 164.0 H, TotalProtein 6.7, Albumin 3.4 L, Globulin 3.3, Albumin/Globulin Ratio 1.0 Microbiology Microbiology - Results from entire visit 07/12/24 16:19 Clean Void Midstream Urine Culture - Final Pseudomonas aeruginosa 07/12/24 15:07 Blood - Left Forearm Blood Culture - Preliminary Enterococcus faecalis Pseudomonas aeruginosa 07/12/24 15:07 Blood - Left Forearm Bacterial ID (NA Multiplex Assay) - Final 07/12/24 15:00 Blood - Left Arm Blood Culture - Preliminary Pseudomonas aeruginosa 07/12/24 15:00 Blood - Left Arm Bacterial ID (NA Multiplex Assay) - Final 07/13/24 18:56 Nasal Nasal Screen MRSA/MSSA - Final 07/13/24 17:50 Stool Stool Occult Blood (BELLA) - Final 07/12/24 15:03 Nasopharyngeal SARS-CoV-2, Influenza & RSV (PCR) - Final A&P - General Surgery (1) Sepsis: Qualifiers: Sepsis acute organ dysfunction status: without acute organ dysfunction (2) Hematuria: Qualifiers: Hematuria type: gross Qualified Code(s): R31.0 - Gross hematuria (3) Abscess: Plan Patient was admitted for hematuria was found to have an area of cellulitis and possible abscess on the right anterior lateral calf. There is no evidence of drainage at this time. I will get a CT of the right lower extremity for furtherevaluation and determine if this is indeed an abscess that needsdrainage. Documented By: Bryce Villeda DO 07/14/24 12 15 Signed By: <Electronically signed by Bryce Villeda DO> 07/14/[address] [facility] Work Phone: Consult note Author Frankie Reynolds [facility] HospitalNote Date/TimeMay 2024 9:59[place] [id number] Infect. Disease Consult Note Signed Patient: Tavo Wallis Jr MR# : [id number] : 1940 Acct:[id number] Age/Sex: 84 / M Adm Date: 5 Loc: Room: [address] [place] [address] Type: ADM IN Attending Dr: Mario Jordan MD Copies to: MD Sandip Fajardo MD~ [facility] Data of Consult Consult date: 07/15/24 Requesting Physician: Mario Jordan MD Primary Care Provider: Sandip Aguirre DO Consult Narrative History of present illness: Mr. Wallis is a 84 year old male who was admitted back on July 12. He has a pastmedical history of A-fib hypothyroidism hypertension BPH and chronic Chou sinceJanuary. This gets exchanged every month. He was noted to have hematuria and in the emergency room he was hypotensive. Lactate was slightly elevated more count was normal. Chest x-ray showed congestion consolidation suggesting pneumonia. Initial blood cultures July 12 both are growing Pseudomonas with 1 setis also growing Enterococcus and his urine culture was sent and is now positive for Enterococcus and Pseudomonas. Abdominal CT done onadmission shows mild left-sided hydronephrosis with hydroureter. Source of blood culture positivitylikely from complicated urinary tract infection. The patient has been on vancomycin and cefepime since admission. He was also noted on the right lower leg there was a area that was visibly swollen without erythema or warmth. CT scan confirmed a fluid collection. Patient denies any known trauma to this leg. Hospitalist as well as general surgery consult yesterday mentions erythema and tenderness around the swelling but today erythema is not that impressive. I received a consult to help manage the antibiotics. Again he remains on vancomycin and cefepime. 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 Social History Comments: [facility] Allergies and Medications Allergies and Active Meds Allergies fentanyl Allergy (Unknown, Verified 07/12/24 15:55) Dizziness, loopy indomethacin (From Indocin) Allergy (Unknown, Verified 07/12/24 15:55) Dizziness zolpidem (From Ambien) Allergy (Unknown, Verified 07/12/24 15:55) Confusion, memory loss Penicillins Allergy (Verified 07/12/24 15:55) Weakness Active Medications Acetaminophen (Acetaminophen 500 Mg Tablet) 500 mg PO TID [facility] Stop: 07/12/25 21:59 Last Admin: 07/15/24 08:33 Dose: 500 mg Acetaminophen (Acetaminophen 325 Mg Tablet) 650 mg PO Q6HR PRN PRN Reason: Pain Scale 1 - 3 or fever Stop: 07/12/25 16:59 Albuterol/Ipratropium (Ipratropium/Albuterol 0.5-3 Mg 3 Ml Ampul.Neb) 3 ml INHALATION Q6HR PRN PRN Reason: shortness of breath or wheezing Stop: 07/12/25 16:56 Allopurinol (Allopurinol 300 Mg Tablet) 300 mg PO DAILY [facility] Stop: 07/13/25 08:59 Last Admin: 07/15/24 08:33 Dose: 300 mg Atorvastatin Calcium (Atorvastatin 40 Mg Tablet) 40 mg PO DAILY [facility] Stop: 07/13/25 08:59 Last Admin: 07/15/24 08:33 Dose: 40 mg Bumetanide (Bumetanide 1 Mg Tablet) 1 mg PO DAILY@0800 [facility] Stop: 07/15/25 07:59 Last Admin: 07/15/24 08:33 Dose: 1 mg Vancomycin HCl 1.25 gm/ (Dextrose) 275 mls @ 183.333 mls/hr IV Q12H [facility] Stop: 07/13/25 17:59 Last Admin: 07/15/24 09:47 Dose: 183.33 mls/hr Cefepime HCl (Maxipime) 2 gm in 50 mls @ 12.5 mls/hr IV Q12H [facility] Last Admin: 07/15/24 08:34 Dose: 12.5 mls/hr Levothyroxine Sodium (Levothyroxine 150 Mcg Tablet) 150 mcg PO DAILY.0630 [facility] Stop: 07/13/25 06:29 Last Admin: 07/15/24 08:33 Dose: 150 mcg Magnesium Oxide (Magnesium Oxide 400 Mg Tablet) 400 mg PO DAILY [facility] Stop: 07/13/25 08:59 Last Admin: 07/15/24 08:33 Dose: 400 mg Eszopiclone 3 Mg (Tablet) 3 mg PO QHS [facility] Stop: 07/12/25 21:59 Last Admin: 07/14/24 23:17 Dose: Not Given Pom (Eszopiclone 3 (Mg Tablet)) 3 mg PO QHS [facility] Stop: 07/20/25 21:59 Oxycodone/Acetaminophen (Oxycodone/Acetaminophen 5-325 Mg Tablet) 1 tab PO Q4H PRN PRN Reason: Pain Scale 4 - 7 Last Admin: 07/13/24 22:05 Dose: 1 tab Polyethylene Glycol (Polyethylene Glycol 3350 17 Gm Powd.Pack) 17 gm PO BID [facility] Stop: 07/14/25 10:04 Last Admin: 07/15/24 08:17 Dose: Not Given Potassium Chloride (Potassium Chloride Er 20 Meq Tab.Er.Prt) 20 meq PO DAILY [facility] Stop: 07/13/25 08:59 Last Admin: 07/15/24 08:33 Dose: 20 meq Sennosides (Sennosides Syrup 8.8 Mg/5 Ml Udc) 8.8 mg PO BID [facility] Stop: 07/14/25 10:04 Last Admin: 07/15/24 08:17 Dose: Not Given Sodium Chloride (Sodium Chloride 0.9 % 10 Ml Syringe) 0 ml IV-PUSH PRN PRN PRN Reason: Flush Stop: 07/12/25 14:40 Last Admin: 07/15/24 09:47 Dose: 10 ml Trazodone HCl (Trazodone 50 Mg Tablet) 50 mg PO QHS PRN PRN Reason: insomnia Stop: 07/12/25 16:56 Last Admin: 07/14/24 21:14 Dose: 50 mg Vancomycin HCl (Vancomycin - Pharmacy Dosing 1 Each Miscell) 1 each IV ONCE PRN; Protocol PRN Reason: ZZ.Pharmacy Consult Exam Physical Exam Vital Signs: Vital Signs Temp Pulse Resp BP Pulse Ox O2 Del Method 07/15/24 08:00 98.0 F 60 18 136/72 97 Room Air 07/15/24 04:00 68 16 126/68 98 Room Air 07/15/24 00:00 85 16 123/60 99 Room Air 07/14/24 20:00 Room Air 07/14/24 20:00 98.3 F 84 20 114/52 L 98 Room Air 07/14/24 16:00 98.3 F 73 20 105/59 L 97 Room Air 07/14/24 12:00 98.7 F 80 16 110/58 L 96 Room Air Intake and Output 07/14/24 07/15/24 07/15/24 23:59 07:59 15:59 Intake Total 1135 / 1710 50 / 50 Output Total 1300 / 2150 1850 / 1850 Balance -165 / -440 -1800 / -1800 Intake: IV 275 / 600 50 / 50 Cefepime 2Gm-*Ns* 2 gm In 50 ml 50 / 50 @ 12.5 mls/hr IV Q12H [facility] Rx#: [id number] Vancomycin 1.25 gm In Dextrose 275 / 550 5 % in Water 250 ml @ 183.333 mls/hr IV Q12H [facility] Rx#:[id number] Oral 860 / 1110 0 / 0 Output: Urine Amount (Catheter) 1299 / 0 1849 / 1849 3-way Urethral 1300 / 2150 1849 / 1849 Other: # Bowel Movements 2 0 Weight 90.8 kg Date of Last Bowel Movement 07/14/24 Patient Weight 07/15/24 23:59 Weight 90.8 kg Const General: comfortable and no acute distress Orientation: oriented x3 HEENT Head: normal to inspection Ears: hearing grossly normal bilaterally Face and sinus: normal facial exam Mouth: oral mucosae normal Eyes General: appearance normal, both eyes and all related structures Neck Neck: normal visual inspection Chest Chest palpation & inspection: normal inspection of the chest Resp Effort & Inspection: normal respiratory effort Cardio Rate: regular rate Rhythm: regular rhythm GI Inspection: normal to inspection Palpation: soft and nontender Skin Other: 3 cm raised swollen area lateral aspect of the right mid leg. Some mild bruise/ecchymosis noted butno erythema present today. Extrem General: edema Results - Infectious Disease Labs 07/15/24 04:31 07/15/24 04:31 Labs: 07/15/24 04:31: Corrected WBC 11.2 H, Uncorrected WBC Count 11.2 H, BUN 32 H, Creatinine 1.44 H Microbiology Results Microbiology Narrative: 07/12/24 15:07 Blood Culture - Preliminary Blood - Left Forearm Enterococcus faecalis Pseudomonas aeruginosa Bacterial ID (NA Multiplex Assay) - Final 07/12/24 15:00 Blood Culture - Final Blood - Left Arm Pseudomonas aeruginosa Bacterial ID (NA Multiplex Assay) - Final 07/12/24 16:19 Urine Culture - Preliminary Clean Void Midstream Pseudomonas aeruginosa Enterococcus faecalis 07/13/24 18:56 Nasal Screen MRSA/MSSA - Final Nasal 07/13/24 17:50 Stool Occult Blood (BELLA) - Final Stool 07/12/24 15:03 SARS-CoV-2, Influenza & RSV (PCR) - Final Nasopharyngeal Imaging and Cardiology Status: report viewed by me Results Comments: CT IMPRESSION: There is diffuse soft tissue swelling consistent with cellulitis. There is a fluid collection consistent with a history of abscess in the anterior/lateral soft tissues of the mid and lower leg measuring 3.9 x 1.7 x 4.4 cm in greatest dimension. No CT evidence of osteomyelitis. A&P - Infectious Disease (1) Sepsis: Qualifiers: Sepsis acute organ dysfunction status: without acute organ dysfunction (2) Complicated UTI (urinary tract infection): (3) Bacteremia due to Pseudomonas: (4) Bacteremia due to Enterococcus: (5) Abscess of left leg: Plan Patient currently on vancomycin and cefepime based on initial cultures from early on in hospital stay. Follow blood cultures remain negative. Source of blood culture likely from his urinary tract infection especially given the hydroureter seen on CT scan. Urine culture did not match blood cultures.Patient now with right lower extremity leg swelling which documentation yesterday did suggest therewas erythema but today erythema is minimal. The area is about [address] scan is confirmed fluid collection. Kamlesh Villeda is planning a bedside I&D. Patient denies any known trauma. Willawait Dr. Villeda I&D and likely superficial culture to be sent. For now maintain vancomycin and cefepime Documented By: Frankie Reynolds MD 07/15/24 0949 Signed By: <Electronically signed by MD Frankie Reynolds> 07/15/[address] [facility] Work Phone: Evaluation noteNo assessment information available [facility] Work Phone: Evaluation noteNo InformationNort Setred Other Evaluation note* Diagnosis Onset Date Resolution Status Acute decompensated heart failure acuteAcute exacerbation of chronic low back painacuteElevated troponinacuteFall acuteHypoxemiaacute [facility] Work Phone: Evaluation note* Diagnosis Onset Date Resolution Status Acute decompensated heart failure acuteAcute exacerbation of chronic low back [id number] respiratory failure with hypoxiaacuteAltered mental statusacuteAnasarcaacute Bladder retentionacuteBradycardiaacuteConstipationacuteDifficulty walkingacute Elevated troponinacuteFallacuteFalls frequentlyacuteFeveracuteGeneralized weaknessacuteHFrEF (heart failure with reduced ejection fraction)acuteHypoxemia acuteImpaired activities of daily livingacuteMyxopapillary ependymomaacute Pleural effusionacuteSleep apneaacuteAtrial fibrillationchronicHypertension chronic [facility] Work Phone: Evaluation note* Diagnosis Chronic atrial fibrillation (Multi) Atrial fibrillation Essential hypertension, benign Heart failure, NYHA class 2 (Multi) Hyperlipidemia, unspecified hyperlipidemia type documented in this encounter [facility] Work Phone: Evaluation note* Author Mayra Ponce [facility] HospitalAuthoredJuly 2023 10:21amThe above note written by ROSALIE Quiroga acting as human recorder, note dictated by Dr. Opal Ga. 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 Primary hypertension Unspecified essential hypertension Mixed hyperlipidemia BMI 30.0-30.9,adult Former smoker Personal history of tobacco use, presenting hazards to health documented in this encounter [facility] Work Phone: Evaluation note* Diagnosis Lumbar stenosis with neurogenic claudication- Primary Spinal stenosis, lumbar region, with neurogenic claudication Longstanding persistent atrial fibrillation (HCC) Cardiomyopathy, unspecified type (HCC) 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, lumbar region, with neurogenic claudication [facility] Diagnosis Pain due to onychomycosis of toenail of left foot- Primary Pain due to onychomycosis of toenail of right foot Localized edema Edema Decreased pedal pulses Other symptoms involving cardiovascular system [facility]FP (current) use of anticoagulants Long-term (current) use of anticoagulants [facility] Author Dharmesh Zavala [facility] January 09, 2022 3:30pmNote Date/TimeNov2021 3:30pm[place] [address] Hospitalist H&P Signed Patient: Tavo Wallis Jr MR# : [id number] : 1940 Acct:[id number] Age/Sex: 81 / M Adm Date: 2 Loc: Room: [address] [place] [address] Type: ADM IN Attending Dr: Dharmesh Zavala [...] May 2016. Minimal coronary artery disease but isleft-ventricular ejection fraction was reduced at 35 to [...] patient describes that he was using his walkerto navigate through the home where he lives [...] that he had seen a urologist in [place] recently. Patient used to be on a number of prostate medications but apparently they were stopped because they are not doing what they are supposed to be doing. The patient andhis daughter have a discussion about what urology was doing for the situation without finding a specific answer. Patient also describes that he has been veryconstipated lately and takes an unspecified ubur-eck-dazyblz generic stool softener. His daughter does point [...] has handwritten note from home which seems tosay ependymoma but has some other letters on it that I cannot tell what it is trying to spell. Itseems like he got a number radiofrequency ablations by pain management doctor in [place]. Review of Systems Review of Systems Review [...] spine, thoracic spine, lumbar spineand sacrum does notreveal any point focal tenderness. Amazingly he does not really have any bruises on his back. Thereis a small scar in the lumbar regionfrom [...] % (Auto) 13.5 % (.) 01/09/22 10:36 [place] % (Auto) 14.2 % (.) 01/09/22 10:36 Eos % (Auto) 0.1 % (.) 01/09/22 10:36 Baso % (Auto) 1.0 % (.) 01/09/22 10:36 Neut # (Auto) 4.3 x10E3/uL (1.8-7.7) 01/09/22 10:36 Lymph # (Auto) 0.8 x10E3/uL (1.00-4.8) L 01/09/22 10:36 [place] # (Auto) 0.9 x10E3/uL (0.0-0.8) H 01/09/22 [...] pH 5.5 (5.0-9.0) 01/09/22 12:42 Ur Specific Delta 1.018 (1.001-1.030) 01/09/22 12:42 Urine Protein Trace [...] lumbar spine. Documented By: Dharmesh Zavala DO [id number] Signed By: <Electronically signed by Dharmesh Zavala DO> 01/09/22 1306 [facility] Work Phone: History and physical note Author Mitchell Reyes [facility] HospitalNote Date/TimeJanuary 2024 3:49pmAlicia Ville [id number] Hospitalist H&P Signed Patient: Tavo Wallis Jr MR# : [id number] : 1940 Acct:[id number] Age/Sex: 83 / M Adm Date: 5 Loc: 3T Room: [address] [place] [address] Type: ADM IN Attending Dr: Mitchell Reyes MD Copies to: MD Opal Peters,DO~ HPI DATE OF EXAMINATION: 03/10/24 HISTORY OF PRESENT ILLNESS: Patient is a 89-year-old male, who was well until approximately 2 weeks ago, when he underwent spinal decompression surgery in [facility] about 2 weeks prior to presentation. He is a poor historian. His daughter at bedside is telling methat during the hospitalization, he had somewhat slow heart rateand low blood pressure, and he was giving fluids. As a result he developed edema, and upon discharge she was released with a diuretic therapy. About a week prior to presentation he was diagnosed witha urinary tract infection, Bactrim was prescribed for 5 days with improvement. He got better, but the day prior to presentation, he appeared loopy, confused, heart rate was low and blood pressurewas low. He was brought today to the emergency department. Patient does not really describe any pain or discomfort. No chest pain or shortness of breath. Past medical history Recent lumbar fusion surgery February 2024 A-fib on Eliquis HFrEF Hypothyroid Hypertension BPH Dyslipidemia Gout Sleep apnea Obesity class I 10 point review of systems cannot be performed due to mental status Physical exam Patient seen on the floor Patient appears comfortable, in no distress. Skin is normally colored, no icterus, cyanosis or edema noted. Capillary refill is normal. Joints are without any effusion. Abdomen is soft, benign, no rebound or rigidity. No organomegaly. Bowel sounds present. Bladder is distended on ultrasound exam. A Chou catheter was inserted in my presence, about 1400 cc urine was present. Heart regular, no gallop, rub or JVD. Peripheral pulses present bilaterally. Central venous pressure measured ultrasonographically is fairly normal at [id number] cc water. LV contractility is slightly decreased. Lungs are clear to auscultation, no rales, ronchi or wheezes. HENT normal Neurological: Patient is awake. Cognition is normal. Cranial nerves are intact. Power is symmetric all extremities, with no focal motor deficit identified on a cursory exam. Psych: affect is normal. EKG Labs imaging reviewed Assessment and plan 1. Acute urine retention with obstructive uropathy and LIS. Continue Chou catheter drainage. Patient appears to be otherwise with preserved central venous pressure, does not appear to be volume depleted from diuretics. Will hold both fluids and diuretics andreassess volume status on a daily basis. Maintain regular oral intake. Rule out urinary infection. 2. COVID-19 infection. Oxygen saturation 94% on room air. Observe. 3. Metabolic encephalopathy in the setting of the above. Continue treatment for chronic medical comorbidities with home regimen. Recent lumbar fusion surgery February 2024 A-fib on Eliquis HFrEF Hypothyroid Hypertension BPH Dyslipidemia Gout Sleep apnea Obesity class I [facility] Medical History Insomnia Hypothyroidism Hypertension Constipation BPH (benign prostatic [...] and Allergies Allergies fentanyl Allergy (Unknown, Verified 03/10/24 10:11) Dizziness, loopy indomethacin (From Indocin) Allergy (Unknown, Verified 03/10/24 10:11) Dizziness zolpidem (From Ambien) Allergy (Unknown, Verified 03/10/24 10:11) Confusion, memory loss Penicillins Allergy (Verified 03/10/24 10:11) Weakness Home Medications apixaban 5 mg tablet 5 mg PO BID 06/06/23 [History Confirmed 03/10/24] magnesium oxide 400 mg PO DAILY 06/06/23 [History Confirmed 03/10/24] oxycodone-acetaminophen 5 mg-325 mg tablet 1 tab PO Q6HR PRN pain 06/06/23 [History Confirmed 03/10/24] potassium chloride 20 mEq tablet,extended release(part/cryst) (Klor-Con M) 20 meq PO DAILY #90 tabs06/07/23 [Rx Confirmed 03/10/24] allopurinol 300 mg tablet 300 mg PO DAILY #90 tabs 06/09/23 [Rx Confirmed 03/10/24] atorvastatin 40 mg tablet 40 mg PO DAILY #90 tabs 09/01/23 [Rx Confirmed 03/10/24] eszopiclone 3 mg tablet 3 mg PO QHS 90 days #90 tabs 11/29/23 [Rx Confirmed 03/10/24] levothyroxine 150 mcg tablet (Synthroid) 150 mcg PO QAM #90 tabs 11/29/23 [Rx Confirmed 03/10/24] trazodone 50 mg tablet 50 mg PO QHS PRN insomnia #90 tabs 11/29/23 [Rx Confirmed 03/10/24] acetaminophen 500 mg tablet (Acetaminophen Extra Strength) 500 mg PO BID 03/10/24 [History Confirmed 03/10/24] bumetanide 1 mg tablet 1 mg PO BID 03/10/24 [History Confirmed 03/10/24] carvedilol 6.25 mg tablet 6.25 mg PO BID 03/10/24 [History Confirmed 03/10/24] clindamycin HCl 300 mg capsule (Cleocin HCl) 300 mg PO QID 03/10/24 [History Confirmed 03/10/24] metolazone 5 mg tablet 5 mg PO DAILY 03/10/24 [History Confirmed 03/10/24] Exam Physical Exam Vital Signs: Temp Pulse Resp BP Pulse Ox O2 Del Method 97.6 F 58 L 18 107/58 L 96 Room Air 03/10/24 09:52 03/10/24 13:32 03/10/24 11:19 03/10/24 13:32 03/10/24 13:32 03/10/24 13:32 Results - Hospitalist H&P Lab Results Labs: Laboratory Last Values Corrected WBC 8.5 X10E3/uL (4.1-10.5) 03/10/24 10:00 Uncorrected WBC Count 8.5 x10E3/uL (4.1-10.5) 03/10/24 10:00 RBC 2.78 x10E6/uL (3.90-5.60) L 03/10/24 10:00 Hgb 9.3 g/dL (13.0-17.0) L 03/10/24 10:00 Hct 27.9 % (38.8-50.0) L 03/10/24 10:00 MCV 100.5 fl (83.5-101) 03/10/24 10:00 MCH 33.6 pg (27.5-35.2) 03/10/24 10:00 MCHC 33.5 g/dL (32.5-35.6) 03/10/24 10:00 RDW 15.4 % (12.0-14.8) H 03/10/24 10:00 Plt Count 247 x10E3/uL (150-450) 03/10/24 10:00 MPV 7.6 fl (6.6-10.1) 03/10/24 10:00 Neut % (Auto) 71.6 % (.) 03/10/24 10:00 Lymph % (Auto) 11.9 % (.) 03/10/24 10:00 [place] % (Auto) 9.2 % (.) 03/10/24 10:00 Eos % (Auto) 5.9 % (.) 03/10/24 10:00 Baso % (Auto) 1.4 % (.) 03/10/24 10:00 Nucleat RBC Rel Count 0.0 /100 WBC (0-0.5) 03/10/24 10:00 Neut # (Auto) 6.1 x10E3/uL (1.8-7.7) 03/10/24 10:00 Lymph # (Auto) 1.0 x10E3/uL (1.00-4.8) 03/10/24 10:00 [place] # (Auto) 0.8 x10E3/uL (0.0-0.8) 03/10/24 10:00 Eos # (Auto) 0.5 x10E3/uL (0.0-0.45) H 03/10/24 10:00 Baso # (Auto) 0.1 x10E3/uL (0.0-0.2) 03/10/24 10:00 Monocyte Dist Width 22.24 % (0.00-20.00) H 03/10/24 10:00 PT 30.4 Seconds (9.0-12.9) H 03/10/24 10:00 INR 2.7 03/10/24 10:00 APTT 38.8 Seconds (25.1-36.5) H 03/10/24 10:00 PHA Creatinine Clear 19.97 03/10/24 10:00 Sodium 132 mmol/L (136-145) L 03/10/24 10:00 Potassium 4.5 mmol/L (3.5-5.1) 03/10/24 10:00 Chloride 98 mmol/L (98-107) 03/10/24 10:00 Carbon Dioxide 30.2 mmol/L (21.0-31.0) 03/10/24 10:00 Anion Gap 8.3 mEq/L (6.0-15.0) 03/10/24 10:00 BUN 40 mg/dL (7-25) H 03/10/24 10:00 Creatinine 3.07 mg/dL (0.70-1.30) H 03/10/24 10:00 Est GFR (CKD-EPI) 19.558 mL/Min 03/10/24 10:00 Glucose 125 mg/dL (70-100) H 03/10/24 10:00 Lactic Acid 1.2 mmol/L (0.5-2.2) 03/10/24 10:00 Calcium 8.3 mg/dL (8.6-10.3) L 03/10/24 10:00 Total Bilirubin 0.6 mg/dl (0.3-1.0) 03/10/24 10:00 Direct Bilirubin 0.20 mg/dL (0.03-0.18) H 03/10/24 10:00 Indirect Bilirubin 0.4 mg/dL 03/10/24 10:00 AST 18 U/L (13-39) 03/10/24 10:00 ALT 10 U/L (7-52) 03/10/24 10:00 Alkaline Phosphatase 111 U/L (34-104) H 03/10/24 10:00 Total Creatine Kinase 22 U/L (30-223) L 03/10/24 10:00 Troponin I High Sens 14.1 pg/mL (0.0-20.0) 03/10/24 10:00 B-Natriuretic Peptide 254.0 pg/mL (5-100) H 03/10/24 10:00 Total Protein 5.7 gm/dL (6.4-8.9) L 03/10/24 10:00 Albumin 2.7 gm/dL (3.5-5.7) L 03/10/24 10:00 Globulin 3.0 gm/dL 03/10/24 10:00 Albumin/Globulin Ratio 0.9 03/10/24 10:00 COVID-19 Clin Com Detected (Not Detecte) A 03/10/24 10:00 Microbiology Results Micro: Microbiology - Results from entire visit 03/10/24 10:00 Nasopharyngeal Respiratory Panel (PCR) - Final Assessment & Plan Assessment/Plan (1) LIS (acute kidney injury): Plan . IP vs OBS Justification Based on differential dx, clinical care plan, and risk of adverse events, if untreated, in my clinical judgement this patient requires an acute care setting as: INPATIENT because of an expectation ofan over 2 midnight stay. Estimated length of stay (# of days): 2 Documented By: Mitchell Reyes MD 03/10/24 1349 Signed By: <Electronically signed by Mitchell Reyes MD> 03/10/24 1549 [facility] Work Phone: History and physical note Author Mario Jordan [facility] HospitalNote Date/TimeMay 2024 6:49[place] [address] Hospitalist H&P Signed Patient: Tavo Wallis Jr MR# : [id number] : 1940 Acct:[id number] Age/Sex: 83 / M Adm Date: 5 Loc: Room: [address] [place] [address] Type: ADM IN Attending Dr: Mario Jordan MD Copies to: MD Sandip Fajardo Ramona DO~ HPI DATE OF EXAMINATION: 07/12/24 CHIEF COMPLAINT: Hematuria HISTORY OF PRESENT ILLNESS: This is a 83-year-old male with significant past medical history of A-fib, hypothyroidism, hypertension, BPH on chronic Chou since March 2024 exchangingevery month, hyperlipidemia, gout, cardiomyopathy, history of CHF, was [facility] for chief concern for hematuria. Patient had appointment with urologist today who exchangehis Chou and patient mentions that he has been bleeding since thenwith minimal urine output. Daughter at bedside. Denies any pain any urgency frequency dysuria or lower abdominal pain. Denies any flank pain. Denies any fever or chills. Patient is on antibiotics for shortness of breath for couple of days. He mentions worsening shortness of breath with cough and some sputum production for 4 to 5 days. In the ED initially he was slightly hypotensive andresolved on its own. Patient got Lasix 40 units and magnesium replacement. Lactate was 2.3. Lab work shows WBC of 6.5, creatinine 1.62, lactate of 2.3, magnesium 1.7, normal liver enzymes, troponin 21, BNP is pending. Urinalysis shows innumerable RBCs and WBC of 10-19. And 1+ bacteria. COVID test negative. Chest x-ray shows minimal hilar congestion no consolidation suggesting pneumonia. Urine culture and blood culture pending. Patient was also started on broad-spectrum antibiotics. Review of Systems Review of Systems All other systems reviewed & are negative unless noted below or in HPI [facility] Medical History Insomnia Hypothyroidism Hypertension Constipation BPH (benign prostatic [...] knee replacement History of endoscopic sinus surgery 1989' Hx of decompressive lumbar laminectomy 2010-with tumor [...] Diagnosed with Cancer Social History Smoking Status: Never smoker Tobacco Type: cigarettes Substance Use Type: None Substance Abuse Comment: 3 drinks a day >6 Meds Medications and Allergies Allergies fentanyl Allergy (Unknown, Verified 07/12/24 15:55) Dizziness, loopy indomethacin (From Indocin) Allergy (Unknown, Verified 07/12/24 15:55) Dizziness zolpidem (From Ambien) Allergy (Unknown, Verified 07/12/24 15:55) Confusion, memory loss Penicillins Allergy (Verified 07/12/24 15:55) Weakness Home Medications magnesium oxide 400 mg PO DAILY 06/06/23 [History Confirmed 07/12/24] allopurinol 300 mg tablet 300 mg PO DAILY #90 tabs 06/09/23 [Rx Confirmed 07/12/24] atorvastatin 40 mg tablet 40 mg PO DAILY #90 tabs 09/01/23 [Rx Confirmed 07/12/24] eszopiclone 3 mg tablet 3 mg PO QHS 90 days #90 tabs 11/29/23 [Rx Confirmed 07/12/24] levothyroxine 150 mcg tablet (Synthroid) 150 mcg PO QAM #90 tabs 11/29/23 [Rx Confirmed 07/12/24] trazodone 50 mg tablet 50 mg PO QHS PRN insomnia #90 tabs 11/29/23 [Rx Confirmed 07/12/24] acetaminophen 500 mg tablet (Acetaminophen Extra Strength) 500 mg PO TID 03/10/24 [History Confirmed 07/12/24] bumetanide 1 mg tablet 1 mg PO DAILY 03/10/24 [History Confirmed 07/12/24] carvedilol 3.125 mg tablet 3.125 mg PO BID 30 days #60 tabs 03/15/24 [Rx Confirmed 07/12/24] oxycodone-acetaminophen 5 mg-325 mg tablet 1 tab PO Q6HR PRN pain 2 days #8 tabs03/15/24 [Rx Confirmed 07/12/24] apixaban 2.5 mg tablet (Eliquis) 5 mg PO BID 07/12/24 [History Confirmed 07/12/24] doxycycline hyclate 100 mg tablet 100 mg PO BID 07/12/24 [History Confirmed 07/12/24] ipratropium 0.5 mg-albuterol 3 mg (2.5 mg base)/3 mL nebulization soln 3 ml inhalation Q6HR PRN shortness of breath or wheezing 07/12/24 [History Confirmed 07/12/24] potassium chloride 20 mEq tablet,extended release(part/cryst) (Klor-Con M) 20 meq PO DAILY 07/12/24[History Confirmed 07/12/24] Exam Physical Exam Vital Signs: Temp Pulse Resp BP Pulse Ox O2 Del Method O2 Flow Rate 98.2 F 95 20 107/51 L 96 Nasal Cannula 2 07/12/24 14:38 07/12/24 18:00 07/12/24 18:00 07/12/24 18:12 07/12/24 18:00 07/12/24 18:00 07/12/24 18:00 Narrative: General: Awake alert, no acute distress HEENT: head atraumatic, normocephalic, moist mucous membranes Neck: supple no masses, no lymphadenopathy CVS: regular rate and rhythm, no murmurs or gallops Respiratory: diminished breath sound with crackles, no wheezing GI: soft, nondistended, nontender, positive bowel sounds with no organomegaly Extremity: moves all extremities, no restrictions of movements, no calf tenderness bilateral 2-3+ pedal edema Neuro: AOx3, CN II-VII intact. Moves all extremities in all planes of motion. Skin: intact no rashes or lesions Results - Hospitalist H&P Lab Results Labs: Laboratory Last Values Corrected WBC 6.5 X10E3/uL (4.1-10.5) 07/12/24 15:00 Uncorrected WBC Count 6.5 x10E3/uL (4.1-10.5) 07/12/24 15:00 RBC 3.28 x10E6/uL (3.90-5.60) L 07/12/24 15:00 Hgb 9.9 g/dL (13.0-17.0) L 07/12/24 15:00 Hct 29.8 % (38.8-50.0) L 07/12/24 15:00 MCV 90.8 fl (83.5-101) 07/12/24 15:00 MCH 30.1 pg (27.5-35.2) 07/12/24 15:00 MCHC 33.2 g/dL (32.5-35.6) 07/12/24 15:00 RDW 17.9 % (12.0-14.8) H 07/12/24 15:00 Plt Count 288 x10E3/uL (150-450) 07/12/24 15:00 MPV 7.2 fl (6.6-10.1) 07/12/24 15:00 Neut % (Auto) 93.8 % (.) 07/12/24 15:00 Lymph % (Auto) 4.2 % (.) 07/12/24 15:00 [place] % (Auto) 0.4 % (.) 07/12/24 15:00 Eos % (Auto) 1.3 % (.) 07/12/24 15:00 Baso % (Auto) 0.3 % (.) 07/12/24 15:00 Nucleat RBC Rel Count 0.2 /100 WBC (0-0.5) 07/12/24 15:00 Neut # (Auto) 6.3 x10E3/uL (1.8-7.7) 07/12/24 15:00 Lymph # (Auto) 0.3 x10E3/uL (1.00-4.8) L 07/12/24 15:00 [place] # (Auto) 0.0 x10E3/uL (0.0-0.8) 07/12/24 15:00 Eos # (Auto) 0.1 x10E3/uL (0.0-0.45) 07/12/24 15:00 Baso # (Auto) 0.0 x10E3/uL (0.0-0.2) 07/12/24 15:00 Monocyte Dist Width Test not performed % (0.00-20.00) 07/12/24 15:00 PHA Creatinine Clear 38.97 07/12/24 15:00 Sodium 135 mmol/L (136-145) L 07/12/24 15:00 Potassium 3.9 mmol/L (3.5-5.1) 07/12/24 15:00 Chloride 102 mmol/L (98-107) 07/12/24 15:00 Carbon Dioxide 27.2 mmol/L (21.0-31.0) 07/12/24 15:00 Anion Gap 9.7 mEq/L (6.0-15.0) 07/12/24 15:00 BUN 33 mg/dL (7-25) H 07/12/24 15:00 Creatinine 1.62 mg/dL (0.70-1.30) H 07/12/24 15:00 Est GFR (CKD-EPI) 42.119 mL/Min 07/12/24 15:00 Glucose 69 mg/dL (70-100) L 07/12/24 15:00 Lactic Acid 2.3 mmol/L (0.5-1.9) H* 07/12/24 15:00 Calcium 9.0 mg/dL (8.6-10.3) 07/12/24 15:00 Magnesium 1.7 mg/dL (1.9-2.7) L 07/12/24 15:00 Total Bilirubin 0.6 mg/dl (0.3-1.0) 07/12/24 15:00 AST 13 U/L (13-39) 07/12/24 15:00 ALT 6 U/L (7-52) L 07/12/24 15:00 Alkaline Phosphatase 100 U/L (34-104) 07/12/24 15:00 Troponin I High Sens 21 ng/L (0-20) H 07/12/24 15:00 Total Protein 6.7 gm/dL (6.4-8.9) 07/12/24 15:00 Albumin 3.4 gm/dL (3.5-5.7) L 07/12/24 15:00 Globulin 3.3 gm/dL 07/12/24 15:00 Albumin/Globulin Ratio 1.0 07/12/24 15:00 Urine Color Red (Yellow) A 07/12/24 16:19 Urine Appearance Turbid (Clear) A 07/12/24 16:19 Urine pH (5.0-9.0) 07/12/24 16:19 Ur Specific Delta 1.020 (1.001-1.030) 07/12/24 16:19 Urine Protein mg/dL (Negative) 07/12/24 16:19 Urine Glucose (UA) mg/dL (Normal) 07/12/24 16:19 Urine Ketones (Negative) 07/12/24 16:19 Urine Occult Blood (Negative) 07/12/24 16:19 Urine Nitrite (Negative) 07/12/24 16:19 Urine Bilirubin (Negative) 07/12/24 16:19 Urine Urobilinogen mg/dL (Normal) 07/12/24 16:19 Ur Leukocyte Esterase (Negative) 07/12/24 16:19 Urine RBC Innumerable /HPF (0-4) H 07/12/24 16:19 Urine WBC 10-19 /HPF (0-4) H 07/12/24 16:19 Ur Squamous Epith Cells 0-1 /HPF (0-2) 07/12/24 16:19 Urine Bacteria 1+ /HPF (None Seen) H 07/12/24 16:19 SARS-CoV-2 Rap RNA(RT-PCR) Negative (Negative) 07/12/24 15:03 Microbiology Results Micro: Microbiology - Results from entire visit 07/12/24 15:03 Nasopharyngeal SARS-CoV-2, Influenza & RSV (PCR) - Final Assessment & Plan Assessment/Plan (1) Hematuria: (2) Hypoxia: (3) CHF exacerbation: (4) Sepsis: (5) Hypothyroidism: (6) Hypertension: (7) BPH (benign prostatic hyperplasia): (8) Atrial fibrillation: Plan This is a 83-year-old male with significant past medical history of A-fib, hypothyroidism, hypertension, BPH on chronic Chou since March 2024 exchangingevery month, hyperlipidemia, gout, cardiomyopathy, history of CHF, was sent [facility] ED from [facility] for chief concern for hematuria. Patient had appointment with urologist today who exchangehis Chou and patient mentions that he has been bleeding since thenwith minimal urine output. Daughter at bedside. Denies any pain any urgency frequency dysuria or lower abdominal pain. Denies any flank pain. Denies any fever or chills. Patient is on antibiotics for shortness of breath for couple of days. He mentions worsening shortness of breath with cough and some sputum production for 4 to 5 days. In the ED initially he was slightly hypotensive andresolved on its own. Patient got Lasix 40 units and magnesium replacement. Lactate was 2.3. Lab work shows WBC of 6.5, creatinine 1.62, lactate of 2.3, magnesium 1.7, normal liver enzymes, troponin 21, BNP is pending. Urinalysis shows innumerable RBCs and WBC of 10-19. And 1+ bacteria. COVID test negative. Chest x-ray shows minimal hilar congestion no consolidation suggesting pneumonia. Urine culture and blood culture pending. Patient was also started on broad-spectrum antibiotics. Plan: - Admitted to regular nursing floor with telemetry - Continue on broad-spectrum antibiotics for concern for pneumonia/UTI - Follow-up sputum culture blood culture and urine culture - Started on continuous bladder irrigation as per urologist recommendation. Urology on consult appreciate recommendation - Eliquis on hold in setting of hematuria - Continue POA medications-allopurinol, Lipitor, Bumex, magnesium, trazodone - Continue on IV diuresis - Monitor input and output - Daily weights - Heart healthy diet - Full code IP vs OBS Justification Based on differential dx, clinical care plan, and risk of adverse events, if untreated, in my clinical judgement this patient requires an acute care setting as: INPATIENT because of an expectation ofan over 2 midnight stay. Estimated length of stay (# of days): 3 Documented By: Mario Jordan MD 07/12/24 1831 Signed By: <Electronically signed by Mario Jordan MD> 07/12/[address] [facility] Work Phone: History of Present illness Narrative* The patient states he has been generally stable since the last visit. Comorbid Illnesses: hypertension. * Symptoms: denies chest pain at rest, denies exertional chest pain, denies dyspnea, denies fatigue, stable exercise intolerance, denies palpitations, denies edema, denies orthopnea, denies dizziness and denies orthostatic dizziness. * Disease Monitoring: [facility] Work Phone: History of Present illness Narrative* The patient states he has been generally stable since the last visit. Comorbid Illnesses: hypertension. * Symptoms: denies chest pain at rest, denies exertional chest pain, denies dyspnea, denies fatigue, stable exercise intolerance, denies palpitations, denies edema, denies orthopnea, denies dizziness and denies orthostatic dizziness. * Disease Monitoring: [facility] Work Phone: History of Present illness Narrative* [...] is not doing well with his goals. [facility] DO Work Phone: History of Present [...] is not doing well with his goals. [facility] Work Phone: Hospital Discharge instructions Additional Instructions Longterm Facility to manage care: - Full code [...] unable to void, chou catheter removed on 01/16[facility] Work Phone: Hospital Discharge instructions Additional Instructions SNF TO MANAGE: PT/OT to eval and treat Monitor VS per protocol Monitor Neuro. assessment--Intracranial Hemorrhage Monitor Urinary assessment and for increased signs of infection--UTI Skin care BID--Theraworx protect foam to bilateral groin folds and scrotal redness. Dressing change every 3 days to left lower back and left buttock suspected deep tissue pressure injuries-- *Clean with Theraworx protect foam and pat dry. Apply Mepilex border foams for added protection. Off load bilateral heels and turn and reposition every 2 hours Maintain and routine care to chou--chou is chronic Maintain high risk fall precautions Care to be managed by [facility] Work Phone: Hospital Discharge instructions Additional Instructions SNF TO MANAGE: PT/OT to [...] hours Maintain and perform routine care to chou--chou is chronic High risk fall precautions Care to be managed by [facility] Work Phone: Progress note Author Dharmesh Zavala [facility] January 10, 2022 8:54pmNote Date/TimeNov2021 8:54[place] [address] Hospitalist Progress Note Signed Patient: Tavo Wallis Jr MR# : [id number] : 1940 Acct:[id number] Age/Sex: 81 / M Adm Date: 2 Loc: Room: 4F0587-1 Type: ADM IN Attending Dr: Dharmesh Zavala DO Copies to: ~ Date of Service: 01/10/2022 Subjective Subjective Narrative: When I entered the room the patient tells me that he is getting a pain in the thighs on the top of his legs. He does mention that the people in [place] told me that was due to the [...] mg 01/09/22 14:41 Bisacodyl 10 Mg Supp.Rect SD 01/09/23 14:40 DAILY PRN Constipation Bisacodyl 10 [...] Propionate 1 spray 01/09/22 15:17 Fluticasone Propionate Moselle 120 Moselle/16 Gm Bottle NARES-BOTH 01/09/23 15:16 QHS PRN [...] 01/09/22 22:00 Eszopiclone PO 01/09/23 21:59 HS [facility] Nystatin 1 applic 01/09/22 22:00 01/10/22 14:42 [...] signed by Dharmesh Zavala DO> 01/10/222053 [facility] Work Phone: Progress note Author Mani Dickens [facility] January 11, 2022 5:02pmNote Date/TimeNov2021 8:[address] [address] Neurology Progress Note Signed Patient: Tavo Wallis Jr MR# : [id number] : 1940 Acct:[id number] Age/Sex: 81 / M Adm Date: 2 Loc: 3T Room: [address] [place] [address] Type: ADM IN Attending Dr: Raji Ennis [...] weakness (Bilateral lower extremity), Reports frequent falls, Reportsparesthesias, Reports vertigo and Reports weakness Exam Physical [...] knee to all modalities. CEREBELLAR EXAM: * Hyquzy-zc-[id number] and alternating movements are intact and normal in bilateral upper extremities * Foyo-rq-poge and alternating movements are intact and normal [...] Therapy Recommendations: OT Recommendations OT Recommended Discharge Longterm Facility Location OT Recommended Services at Physical Therapy,Occupational Therapy Discharge PT Recommendations PT Recommended Discharge Longterm Facility Location PT Recommended Services at Physical [...] head and spine were unrevealing. Dr. Sesar Rajinder did the operation. They were told that when they did the resection the surgeon could not take all of it. He has subsequent spinal imaging that continues to show some evidence oftumor. He has a lot of low back pain. Some of those back pain seem to radiate into his upper thighs, which he describes as a dull ache. 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 The patient statesthat he has had progressive weakness of his [...] cannot exclude superimposed degenerative lumbar spine disease contributingto spinal canal stenosis or polyradiculopathy contributing to lower extremity weakness. I will obtain an MRI scan of the lumbar spine to assess for any structural lesions which may be contributing tothe patient's symptoms. We will have physical therapy, [...] <Electronically signed by MD Mani Dickens> 01/11/22 170 [facility] Work Phone: Progress note Author W Be Mcintyre [facility] January 11, 2022 2:09pmNote Date/TimeNov2021 2:09[place] [address] Cardiology Progress Note Signed Patient: Tavo Wallis Jr MR# : [id number] : 1940 Acct:[id number] Age/Sex: 81 / M Adm Date: 2 Loc: Room: [address] [place] [address] Type: ADM IN Attending Dr: Raji Ennis [...] % (Auto) 73.8 Lymph % (Auto) 13.7 [place] % (Auto) 9.6 Eos % (Auto) 2.2 Baso % (Auto) 0.7 Neut # (Auto) 6.3 Lymph # (Auto) 1.2 [place] # (Auto) 0.8 Eos # (Auto) 0.2 [...] by Bhupinder Mcintyre DO> 01/11/22 1409 [facility] Work Phone: Progress note Author Raji Ennis [facility] January 11, 2022 5:04pmNote Date/TimeNov2021 5:04pm[place] [address] Hospitalist Progress Note Signed Patient: Tavo Wallis Jr MR# : [id number] : 1940 Acct:[id number] Age/Sex: 81 / M Adm Date: 2 Loc: Room: [address] [place] [address] Type: ADM IN Attending Dr: Raji Ennis [...] mg 01/09/22 14:41 Bisacodyl 10 Mg Supp.Rect SD 01/09/23 14:40 DAILY PRN Constipation Bisacodyl 10 [...] Propionate 1 spray 01/09/22 15:17 Fluticasone Propionate Moselle 120 Moselle/16 Gm Bottle NARES-BOTH 01/09/23 15:16 QHS PRN [...] prophylaxis Documented By: Raji Ennis MD 01/11/22 9267 Signed By: <Electronically signed by Raji Ennis MD> 01/11/22 1709 [facility] Work Phone: Progress note Author Mani Dickens [facility] January 12, 2022 4:10pmNote Date/TimeNov2021 8:19[place] [id number] Neurology Progress Note Signed Patient: Tavo Wallis Jr MR# : [id number] : 1940 Acct:[id number] Age/Sex: 81 / M Adm Date: 2 Loc: Room: [address] [place] [address] Type: ADM IN Attending Dr: Raji Ennis [...] extremities * Unable to test finger-nose or eqat-pv-vinc due to drowsiness REFLEX EXAM: * 1 throughout Objective Vital Signs Vital Signs: Vital [...] Therapy Recommendations: OT Recommendations OT Recommended Discharge Longterm Facility Location OT Recommended Services at Physical Therapy,Occupational Therapy Discharge PT Recommendations PT Recommended Discharge Longterm Facility Location PT Recommended Services at Physical [...] which he describes as a dull ache. Chroniclow back painand lower extremity weakness with progressive [...] the plan of care and confirmed the SENIOR ACCOUNTING MANAGER note The patient is an 81-year-old man with history of cognitive impairment, atrial fibrillation on chronic anticoagulation, obstructive sleep apnea, and degenerative joint disease. 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 The [...] by MD Mani Dickens> 01/12/22 1610 [facility] Work Phone: Progress note Author Raji Ennis [facility] January 12, 2022 4:38pmNote Date/TimeNov2021 4:38[place] [address] Hospitalist Progress Note Signed Patient: Tavo Wallis Jr MR# : [id number] : 1940 Acct:[id number] Age/Sex: 81 / M Adm Date: 2 Loc: Room: [address] [place] [address] Type: ADM IN Attending Dr: Raji Ennis MD Copies to: ~ Date of Service: 01/12/2022 Subjective Subjective Narrative: Patient seen and examined. Patient appears slightly lethargic and is confused. He could tell me hisname but could not tell me the place or time. Per RN patient was awake, alert and oriented early inthe morning but appeared confusedafter receiving Dilaudid for [...] Tablet PO 01/10/23 08:59 300 mg DAILY AINBAL Administration Apixaban 5 mg 01/09/22 21:00 01/12/22 08:22 Apixaban 5 Mg Tablet PO 01/09/23 20:59 5 mg BID ANIBAL Administration Atorvastatin Calcium 40 mg 01/09/22 22:00 01/11/22 21:53 Atorvastatin 40 Mg Tablet PO 01/09/23 21:59 40 mg QHS ANIBAL Administration Bisacodyl 10 mg 01/09/22 14:41 Bisacodyl 10 Mg Supp.Rect SD 01/09/23 14:40 DAILY PRN Constipation Bisacodyl 10 [...] Propionate 1 spray 01/09/22 15:17 Fluticasone Propionate Moselle 120 Moselle/16 Gm Bottle NARES-BOTH 01/09/23 15:16 QHS PRN [...] signed by Raji Ennis MD> 01/12/[address] [facility] Work Phone: Progress note Author W Be Mcintyre [facility] January 12, 2022 6:11pmNote Date/TimeNov2021 6:11[place] [address] Cardiology Progress Note Signed Patient: Tavo Wallis MR# : [id number] : 1940 Acct:[id number] Age/Sex: 81 / M Adm Date: 2 Loc: 3T Room: [address] [place] [address] Type: ADM IN Attending Dr: Raji Ennis MD Copies to: ~ Date of Service: 01/12/2022 Subjective Principal diagnosis: Atrial fibrillation, bradycardia, diastolic CHF Interval history: Mr. Wallis endorses improved shortness of breath today. Edema in b/l LE continues to diminish. Patient continues to remain in normal rate without episode of bradycardia with heart rate ranging 67-58in the past 24 hours. Saturating well on [...] % (Auto) 76.3 Lymph % (Auto) 12.2 [place] % (Auto) 9.1 Eos % (Auto) 1.9 Baso % (Auto) 0.5 Neut # (Auto) 7.7 Lymph # (Auto) 1.2 [place] # (Auto) 0.9 H Eos # (Auto) [...] 2.9 Globulin (PEP) 2.4 Albumin/Globulin (PEP) 1.2 Juuxr-3-Vqrvukwbv 0.4 Vduec-5-Nwjijexzz 0.7 Beta Globulins 0.6 L Gamma Globulins 0.8 M-Franky Not observed PEP Note IgG 816 IgA 171 IgM 105 Serum Immunofixation 01/12/22 06:42 Corrected WBC Uncorrected WBC Count RBC Hgb Hct MCV MCH MCHC RDW Plt Count MPV Neut % (Auto) Lymph % (Auto) [place] % (Auto) Eos % (Auto) Baso % (Auto) Neut # (Auto) Lymph # (Auto) [place] # (Auto) Eos # (Auto) Baso # (Auto) Nucleated RBC % (auto) PHA Creatinine Clear Sodium Potassium Chloride Carbon Dioxide Anion Gap BUN Creatinine Est GFR ( Amer) Est GFR (Non-Af Amer) Glucose Calcium C-Reactive Prot, Quant 8.4 H Serum Total Protein Albumin (Send Out) Globulin (PEP) Albumin/Globulin (PEP) Ympoq-5-Myphbflce Ylaio-5-Kkmwmaklj Beta Globulins Gamma Globulins M-Franky PEP Note [...] by Bhupinder Mcintyre DO> 01/12/22 1811 [facility] Work Phone: Progress note Author Mani Dickens [facility] January 13, 2022 6:10pmNote Date/TimeNov2021 8:13[place] [address] Neurology Progress Note Signed with Addenda Patient: Tavo Wallis Jr MR# : [id number] : 1940 Acct:[id number] Age/Sex: 81 / M Adm Date: 2 Loc: Room: [address] [place] [address] Type: ADM IN Attending Dr: Raji Ennis MD Copies to: ~ ADDENDUM1 The patient is an 81-year-old male with chronic back pain and increased difficulty ambulating admitted to the hospital due to difficulty getting around. The patient had an MRI scan of the lumbar spine which did not reveal evidence of an acute process. There is no evidence of recurrent ependymoma orsevere degenerative changes. The patient does have moderate degenerative disc disease for which shehas seen pain management in the past likely [...] Decreased sensation be low the knee to allmodalities. CEREBELLAR EXAM: * Alternating movements are intact and normal in bilateral upper extremities * Alternating movements are intact and normal in lower extremities * Unable to test finger-nose or qvfh-ei-wqfz due to drowsiness REFLEX EXAM: * 03/10 [...] Therapy Recommendations: OT Recommendations OT Recommended Discharge Longterm Facility Location OT Recommended Services at Physical Therapy,Occupational Therapy Discharge PT Recommendations PT Recommended Discharge Longterm Facility Location PT Recommended Services at Physical [...] which he describes as a dull ache. Chroniclow back painand lower extremity weakness with progressive [...] signed by MEI Knight> 01/13/22 1520 [facility] Work Phone: Progress note Author Raji Ennis [facility] January 13, 2022 3:44pmNote Date/TimeNov2021 3:27pm[place] [address] Hospitalist Progress Note Signed Patient: Tavo Wallis Jr MR# : [id number] : 1940 Acct:[id number] Age/Sex: 81 / M Adm Date: 2 Loc: Room: [address] [place] [address] Type: ADM IN Attending Dr: Raji Ennis [...] mg 01/09/22 14:41 Bisacodyl 10 Mg Supp.Rect SD 01/09/23 14:40 DAILY PRN Constipation Bisacodyl 10 [...] Propionate 1 spray 01/09/22 15:17 Fluticasone Propionate Moselle 120 Moselle/16 Gm Bottle NARES-BOTH 01/09/23 15:16 QHS PRN [...] by Raji Ennis MD> 01/13/22 1544 [facility] Work Phone: Progress note Author Frankie Reynolds [facility] January 14, 2022 9:39amNote Date/TimeNov2021 9:39[place] [address] Infect. Disease Progress Note Signed Patient: Tavo Wallis Jr MR# : [id number] : 1940 Acct:[id number] Age/Sex: 81 / M Adm Date: 2 Loc: Room: [address] [place] [address] Type: ADM IN Attending Dr: Raji Ennis [...] Appearance Clear Urine pH 5.5 Ur Specific Delta 1.012 Urine Protein 30 H Urine Glucose [...] Tablet) 300 mg PO DAILY [facility] Stop: 01/10/23 08:59 Last Admin: 01/14/22 08:04 Dose: 300 mg Apixaban (Apixaban 5 Mg Tablet) 5 mg PO BID [facility] Stop: 01/09/23 20:59 Last Admin: 01/14/22 08:04 Dose: 5 mg Atorvastatin Calcium (Atorvastatin 40 Mg Tablet) 40 mg PO QHS [facility] Stop: 01/09/23 21:59 Last Admin: 01/13/22 21:26 Dose: 40 mg Bisacodyl (Bisacodyl 10 Mg Supp.Rect) 10 mg SD DAILY PRN PRN Reason: Constipation Stop: 01/09/23 14:40 Bisacodyl (Bisacodyl 5 Mg Tablet.Dr) 10 mg PO DAILY PRN PRN Reason: Constipation Stop: 01/09/23 14:40 Last Admin: 01/13/22 21:26 Dose: 10 mg Bumetanide (Bumetanide 1 Mg Tablet) 1 mg PO BID@0800,1600 [facility] Stop: 01/13/23 15:59 Docusate Sodium (Docusate 100 Mg Capsule) 100 mg PO BID [facility] Stop: 01/09/23 20:59 Last Admin: 01/14/22 08:03 Dose: 100 mg Fluticasone Propionate (Fluticasone Propionate Moselle 120 Moselle/16 Gm Bottle) 1 spray NARES-BOTH QHSPRN PRN Reason: Nasal Congestion Stop: 01/09/23 15:16 Magnesium Sulfate (Magnesium Sulf 2gm-*Swfi*) 2 gm in 50 mls @ 25 mls/hr IV DAILY PRN PRN Reason: Magnesium Level < 1.5 Stop: 01/09/23 14:40 Cefepime HCl (Maxipime) 2 gm in 50 mls @ 100 mls/hr IV Q12H [facility] Last Admin: 01/14/22 03:05 Dose: 100 mls/hr Vancomycin HCl 1.25 gm/ (Dextrose) 275 mls @ 183.333 mls/hr IV Q24H ANIBAL Stop: 01/13/23 18:59 Last Infusion: 01/13/22 21:17 Dose: Infused Levothyroxine Sodium (Levothyroxine 150 Mcg Tablet) 150 mcg PO DAILY@0630 [facility] Stop: 01/10/23 06:29 Last Admin: 01/14/22 05:54 [...] (Tablet) 3 mg PO HS [facility] Stop: 01/11/23 21:59 Last Admin: 01/13/22 21:27 [...] almost 2 days. Urinalysis was sent yesterday thatdid havesome RBCs but minimal WBCs and no bacteria seen. Urine culture pending. Patient's temperature curve quickly resolved and remains normal. He has been onbroad-spectrum antibiotic therapy but noclear infection has been found to date. Blood cultures to be negative at 48 hours later today and if urine culture remains negative we will plan on stopping antibiotics after tonight's last dose. We then can observe off antibiotic. Uric acid was within normal limits Documented By: Frankie Reynolds MD 01/14/2235 Signed By: <Electronically signed by MD Frankie Reynolds> 01/14/[address] [facility] Work Phone: Progress note Author [facility] January 14, 2022 5:43pmNote Date/TimeNov2021 5:43[place] [address] Hospitalist Progress Note Signed Patient: Tavo Wallis Jr MR# : [id number] : 1940 Acct:[id number] Age/Sex: 81 / M Adm Date: 2 Loc: Room: [address] [place] [address] Type: ADM IN Attending Dr: Raji Ennis MD Copies to: ~ Date of Service: 01/14/2022 Subjective Subjective Narrative: patient seen and examined. He is in good spirits today and is oriented x3. Denies any shortness of breath, cough, chest pain, fever and chills. States that low back pain is fairly well tolerated withpain medications. Exam Physical Exam Vital Signs: Temp [...] mg 01/09/22 14:41 Bisacodyl 10 Mg Supp.Rect SD 01/09/23 14:40 DAILY PRN Constipation Bisacodyl 10 [...] Propionate 1 spray 01/09/22 15:17 Fluticasone Propionate Moselle 120 Moselle/16 Gm Bottle NARES-BOTH 01/09/23 15:16 QHS PRN [...] signed by Raji Ennis MD> 01/14/221742 [facility] Work Phone: Progress note Author Frankie Reynolds [facility] January 15, 2022 12:21pmNote Date/TimeNov2021 12:21pm[place] [address] Infect. Disease Progress Note Signed Patient: Tavo Wallis Jr MR# : [id number] : 1940 Acct:[id number] Age/Sex: 81 / M Adm Date: 2 Loc: Room: [address] [place] [address] Type: ADM IN Attending Dr: Raji Ennis [...] Tablet) 300 mg PO DAILY [facility] Stop: 01/10/23 08:59 Last Admin: 01/15/22 08:46 Dose: 300 mg Apixaban (Apixaban 5 Mg Tablet) 5 mg PO BID [facility] Stop: 01/09/23 20:59 Last Admin: 01/15/22 08:46 Dose: 5 mg Atorvastatin Calcium (Atorvastatin 40 Mg Tablet) 40 mg PO QHS [facility] Stop: 01/09/23 21:59 Last Admin: 01/14/22 21:32 Dose: 40 mg Bisacodyl (Bisacodyl 10 Mg Supp.Rect) 10 mg SD DAILY PRN PRN Reason: Constipation Stop: 01/09/23 [...] Dose: 100 mg Fluticasone Propionate (Fluticasone Propionate Moselle 120 Moselle/16 Gm Bottle) 1 spray NARES-BOTH QHSPRN PRN Reason: Nasal Congestion Stop: 01/09/23 15:16 Magnesium Sulfate (Magnesium Sulf 2gm-*Swfi*) 2 gm in 50 mls @ 25 mls/hr IV DAILY PRN PRN Reason: Magnesium Level < 1.5 Stop: 01/09/23 14:40 Levothyroxine Sodium (Levothyroxine 150 Mcg Tablet) 150 mcg PO DAILY@0630 [facility] Stop: 01/10/23 06:29 Last Admin: 01/15/22 06:38 Dose: Not Given Magnesium Hydroxide (Magnesium Hydroxide Susp 30 Ml Udc) 30 ml PO BID PRN PRN Reason: Constipation Stop: 01/09/23 14:40 Magnesium Oxide (Magnesium Oxide 400 Mg Tablet) 400 mg PO DAILY [facility] Stop: 01/10/23 08:59 Last Admin: 01/15/22 08:46 Dose: 400 mg Nitroglycerin (Nitroglycerin 0.4 Mg Tab.Subl) 0.4 mg SUBLINGUAL Q5MIN.X3 PRN PRN Reason: Chest Pain Stop: 01/09/23 14:40 Pom Eszopiclone 3 Mg (Tablet) 3 mg PO HS [facility] Stop: 01/11/23 21:59 Last Admin: 01/14/22 21:32 Dose: 3 mg Nystatin (Nystatin 100,000 Unit/Gram Powder 15 Gm Bottle) 1 applic TOPICAL TID [facility] Stop: 01/09/23 21:59 Last Admin: 01/15/22 08:46 [...] denies any new physical complaints. We will followhim as needed Documented By: Frankie Reynolds MD 01/15/221219 Signed By: <Electronically signed by MD Frankie Reynolds> 01/15/221220 [facility] Work Phone: Progress note Author Raji Ennis [facility] January 15, 2022 4:51pmNote Date/TimeNov2021 4:51pm[place] [address] Hospitalist Progress Note Signed Patient: Tavo Wallis Jr MR# : [id number] : 1940 Acct:[id number] Age/Sex: 81 / M Adm Date: 2 Loc: Room: [address] [place] [address] Type: ADM IN Attending Dr: Raji Ennis [...] mg 01/09/22 14:41 Bisacodyl 10 Mg Supp.Rect SD 01/09/23 14:40 DAILY PRN Constipation Bisacodyl 10 [...] Propionate 1 spray 01/09/22 15:17 Fluticasone Propionate Moselle 120 Moselle/16 Gm Bottle NARES-BOTH 01/09/23 15:16 QHS PRN [...] by Raji Ennis MD> 01/15/22 1651 [facility] Work Phone: Progress note Author Mitchell Reyes [facility] Date/TimeJanuary 2024 12:33pm [place] [address] Hospitalist Progress Note Signed Patient: Tavo Wallis Jr MR# : [id number] : 1940 Acct:[id number] Age/Sex: 83 / M Adm Date: 5 Loc: 3T Room: [address] [place] [address] Type: ADM IN Attending Dr: Mitchell Reyes MD Copies to: ~ Date of Service: 03/11/2024 Subjective Subjective Narrative: With better than yesterday. Mental status is improved. He has no acute complaints. Low back pain ismanageable. Heart is regular Lungs are clear Abdomen soft Neurological nonfocal Assessment and plan 1. Acute urine retention with obstructive uropathy and LIS. This occurred in the setting of recent spine surgery, pain medications etc. Urine output is good. Renal function is improving. Resume oral diuretics from home. Continue to monitor daily electrolytes, renal function and volume status. 2. COVID-19 infection. Oxygen saturation 96% on room air. Observe. 3. Metabolic encephalopathy in the setting of the above. Resolved. 4. Recent lumbar decompression surgery 2 weeks ago in [facility]. No complications otherwise. PT OT and pain control. Possible discharge back to SNF tomorrowUrinary retention, recent spine surgery 2weeks ago. Also hasCOVID, probably incidental finding. Discharge back to SNF tomorrow if renal function back to baseline. Continue treatment for chronic medical comorbidities with home regimen. Recent lumbar fusion surgery February 2024 A-fib on Eliquis HFrEF Hypothyroid Hypertension BPH Dyslipidemia Gout Sleep apnea Obesity class I Exam Physical Exam Vital Signs: Temp Pulse Resp BP Pulse Ox O2 Del Method 97.8 F 59 L 18 95/58 L 96 Room Air 03/11/24 11:04 03/11/24 11:04 03/11/24 11:04 03/11/24 11:04 03/11/24 11:04 03/11/24 11:04 Objective Lab Results 03/10/24 10:00 03/11/24 06:24 Microbiology Results Microbiology 03/10/24 14:45 Chou Port Urine Culture - Preliminary No Growth 1 Day 03/10/24 10:18 Blood - Left Hand Blood Culture - Preliminary No Growth 1 Day 03/10/24 10:00 Blood - Left Antecubital Blood Culture - Preliminary No Growth 1 Day 03/10/24 10:00 Nasopharyngeal Respiratory Panel (PCR) - Final Meds Allergies and Active Meds Allergies fentanyl Allergy (Unknown, Verified 03/10/24 10:11) Dizziness, loopy indomethacin (From Indocin) Allergy (Unknown, Verified 03/10/24 10:11) Dizziness zolpidem (From Ambien) Allergy (Unknown, Verified 03/10/24 10:11) Confusion, memory loss Penicillins Allergy (Verified 03/10/24 10:11) Weakness Active Meds: Active Medications Generic Name Dose Route Start Last Admin Trade Name Freq PRN Reason Stop Dose Admin Acetaminophen 500 mg 03/10/24 21:00 03/11/24 08:16 Acetaminophen 500 Mg Tablet PO 03/10/25 20:59 500 mg BID ANIBAL Administration Allopurinol 300 mg 03/11/24 09:00 03/11/24 08:20 Allopurinol 300 Mg Tablet PO 03/11/25 08:59 300 mg DAILY ANIBAL Administration Apixaban 5 mg 03/10/24 21:00 03/11/24 08:16 Apixaban 5 Mg Tablet PO 03/10/25 20:59 5 mg BID ANIBAL Administration Atorvastatin Calcium 40 mg 03/11/24 09:00 03/11/24 08:20 Atorvastatin 40 Mg Tablet PO 03/11/25 08:59 40 mg DAILY ANIBAL Administration Bumetanide 1 mg 03/11/24 09:25 03/11/24 09:42 Bumetanide 1 Mg Tablet PO 03/11/25 09:24 1 mg BID ANIBAL Administration Carvedilol 3.125 mg 03/10/24 21:00 03/11/24 08:16 Carvedilol 3.125 Mg Tablet PO 03/10/25 20:59 3.125 mg BID ANIBAL Administration Clindamycin HCl 300 mg 03/10/24 14:00 03/11/24 08:16 Clindamycin 300 Mg Capsule PO 300 mg QID ANIBAL Administration Influenza Virus Vacc Triv Types A&B 0.5 ml 03/11/24 14:37 Flu Vacc High-Dose Tv (65yr +)Pf 0.5 Ml Syringe IM 03/11/24 14:38 .ONCE ONE Levothyroxine Sodium 150 mcg 03/11/24 06:30 03/11/24 05:30 Levothyroxine 150 Mcg Tablet PO 03/11/25 06:29 Not Given DAILY@0630 [facility] Eszopiclone 3 Mg 3 mg 03/10/24 22:00 03/11/24 00:18 Tablet PO 03/10/25 21:59 Not Given QHS [facility] Oxycodone/Acetaminophen 1 tab 03/10/24 13:54 03/10/24 18:29 Oxycodone/Acetaminophen 5-325 Mg Tablet PO 1 tab Q6HR PRN Administration pain Polyethylene Glycol 17 gm 03/10/24 15:00 03/11/24 12:21 Polyethylene Glycol 3350 17 Gm Powd.Pack PO 03/10/25 14:59 17 gm DAILY PRN Administration Constipation Polyethylene Glycol 17 gm 03/11/24 10:34 Polyethylene Glycol 3350 17 Gm Powd.Pack PO 03/11/25 10:33 DAILY PRN Constipation Senna/Docusate Sodium 2 tab 03/10/24 21:00 03/11/24 08:16 Sennosides/Docusate 8.6-50mg 1 Tab Tablet PO 03/10/25 20:59 2 tab BID ANIBAL Administration Sodium Chloride 0 ml 03/10/24 10:00 Sodium Chloride 0.9 % 10 Ml Syringe IV-PUSH 03/10/25 09:59 PRN PRN Flush Trazodone HCl 50 mg 03/10/24 21:00 03/10/24 20:27 Trazodone 50 Mg Tablet PO 03/10/25 20:59 50 mg QPM ANIBAL Administration A&P - Hospitalist Assessment/Plan (1) LIS (acute kidney injury): Plan . Documented By: Mitchell Reyes MD 03/11/24 1231 Signed By: <Electronically signed by Mitchell Reyes MD> 03/11/24 1233 [facility] Work Phone: Progress note Author Michele Knight [facility] Date/TimeJanuary 2024 5:12[place] [address] Hospitalist Progress Note Signed Patient: Tavo Wallis Jr MR# : [id number] : 1940 Acct:[id number] Age/Sex: 83 / M Adm Date: 5 Loc: Room: [address] [place] [address] Type: ADM IN Attending Dr: Michele Knight MD Copies to: ~ Date of Service: 03/12/2024 Subjective Subjective Narrative: Alert and oriented, conversant, states pain is controlled. Tolerating p.o., having bowel movements.Ambulated out of bed to chair with PT OT Exam Physical Exam Vital Signs: Temp Pulse Resp BP Pulse Ox O2 Del Method 97.6 F 78 20 97/59 L 93 L Room Air 03/12/24 15:05 03/12/24 15:05 03/12/24 15:05 03/12/24 15:05 03/12/24 15:03/12/24 15:05 Narrative: General: cooperative and comfortable Orientation: alert, awake and oriented x3 Head: normal to inspection Neck: normal visual inspection Cardio: no JVD, regular rate, regular rhythm Chest palpation & inspection: normal inspection of the chest Resp Effort & Inspection: normal respiratory effort Abd: soft, non-tender, non-distended. Chou catheter in place Extremities: Warm well perfused, no edema Objective Lab Results 03/10/24 10:00 03/12/24 07:02 Microbiology Results Microbiology 03/10/24 10:18 Blood - Left Hand Blood Culture - Preliminary No Growth 2 Days 03/10/24 14:45 Chou Port Urine Culture - Final No Growth 2 Days 03/10/24 10:00 Blood - Left Antecubital Blood Culture - Preliminary No Growth 2 Days Meds Allergies and Active Meds Allergies fentanyl Allergy (Unknown, Verified 03/10/24 10:11) Dizziness, loopy indomethacin (From Indocin) Allergy (Unknown, Verified 03/10/24 10:11) Dizziness zolpidem (From Ambien) Allergy (Unknown, Verified 03/10/24 10:11) Confusion, memory loss Penicillins Allergy (Verified 03/10/24 10:11) Weakness Active Meds: Active Medications Generic Name Dose Route Start Last Admin Trade Name Freq PRN Reason Stop Dose Admin Acetaminophen 500 mg 03/10/24 21:00 03/12/24 08:56 Acetaminophen 500 Mg Tablet PO 03/10/25 20:59 500 mg BID ANIBAL Administration Allopurinol 300 mg 03/11/24 09:00 03/12/24 08:56 Allopurinol 300 Mg Tablet PO 03/11/25 08:59 300 mg DAILY ANIBAL Administration Apixaban 5 mg 03/10/24 21:00 03/12/24 08:56 Apixaban 5 Mg Tablet PO 03/10/25 20:59 5 mg BID ANIBAL Administration Atorvastatin Calcium 40 mg 03/11/24 09:00 03/12/24 08:56 Atorvastatin 40 Mg Tablet PO 03/11/25 08:59 40 mg DAILY ANIBAL Administration Bumetanide 1 mg 03/11/24 09:25 03/12/24 08:56 Bumetanide 1 Mg Tablet PO 03/11/25 09:24 1 mg BID ANIBAL Administration Carvedilol 3.125 mg 03/10/24 21:00 03/12/24 08:56 Carvedilol 3.125 Mg Tablet PO 03/10/25 20:59 3.125 mg BID ANIBAL Administration Clindamycin HCl 300 mg 03/10/24 14:00 03/12/24 15:06 Clindamycin 300 Mg Capsule PO 300 mg QID ANIBAL Administration Levothyroxine Sodium 150 mcg 03/11/24 06:30 03/12/24 06:40 Levothyroxine 150 Mcg Tablet PO 03/11/25 06:29 Not Given DAILY@0630 [facility] Eszopiclone 3 Mg 3 mg 03/10/24 22:00 03/11/24 21:22 Tablet PO 03/10/25 21:59 Not Given QHS AN[facility] Oxycodone/Acetaminophen 1 tab 03/10/24 13:54 03/12/24 12:45 Oxycodone/Acetaminophen 5-325 Mg Tablet PO 1 tab Q6HR PRN Administration pain Polyethylene Glycol 17 gm 03/10/24 15:00 03/11/24 12:21 Polyethylene Glycol 3350 17 Gm Powd.Pack PO 03/10/25 14:59 17 gm DAILY PRN Administration Constipation Polyethylene Glycol 17 gm 03/11/24 10:34 Polyethylene Glycol 3350 17 Gm Powd.Pack PO 03/11/25 10:33 DAILY PRN Constipation Senna/Docusate Sodium 2 tab 03/10/24 21:00 03/12/24 08:56 Sennosides/Docusate 8.6-50mg 1 Tab Tablet PO 03/10/25 20:59 2 tab BID ANIBAL Administration Sodium Chloride 0 ml 03/10/24 10:00 Sodium Chloride 0.9 % 10 Ml Syringe IV-PUSH 03/10/25 09:59 PRN PRN Flush Trazodone HCl 50 mg 03/10/24 21:00 03/11/24 21:20 Trazodone 50 Mg Tablet PO 03/10/25 20:59 50 mg QPM ANIBAL Administration A&P - Hospitalist Assessment/Plan (1) LIS (acute kidney injury): Plan 1. Acute urine retention with obstructive uropathy and LIS. - This occurred in the setting of recent spine surgery, pain medications - Urine output is good. Renal function is improving. Resume oral diuretics from home. Continue to monitor daily electrolytes, renal function and volume status. -DC Chou catheter, void trial, plan for reinsertion if postvoid residual volumeabove 300 cc -Continue to trend renal function until back to baseline, 1.3-1.5. 2. COVID-19 infection. Oxygen saturation 96% on room air. Observe. - likely incidental 3. Metabolic encephalopathy in the setting of the above. Resolved. 4. Recent lumbar decompression surgery 2 weeks ago in [facility]. No complications otherwise. PT OT and pain control. Continue treatment for chronic medical comorbidities with home regimen. Recent lumbar fusion surgery February 2024 A-fib on Eliquis HFrEF Hypothyroid Hypertension BPH Dyslipidemia Gout Sleep apnea Obesity class I Diet: regular Daily Labs: BMP Lines/Drains: PIV, Chou DVT ppx: apixiban 5 mg bid for afib Code status: Full Status: inpatient Discussed with patient at bedside. All questions answered. In agreement with theabove plan. Michele Knight MD Internal Medicine Hospitalist Attending Physician Documented By: Michele Knight MD 03/12/241705 Signed By: <Electronically signed by Michele Knight MD> 03/12/241711 [facility] Work Phone: Progress note Author Michele Knight [facility] HospitalNote Date/TimeJanuary 2024 6:00[place] [address] Hospitalist Progress Note Signed Patient: Tavo Wallis Jr MR# : [id number] : 1940 Acct:[id number] Age/Sex: 83 / M Adm Date: 5 Loc: 3T Room: [address] [place] [address] Type: ADM IN Attending Dr: Michele Knight MD Copies to: ~ Date of Service: 03/13/2024 Subjective Subjective Narrative: Remains alert and oriented, conversant, tolerating p.o., having bowel movements. Currently out of bed to chair, voiding without catheter, reports 1 incontinenceand 1 ambulation to bathroom. Exam Physical Exam Vital Signs: Temp Pulse Resp BP Pulse Ox O2 Del Method 97.6 F 72 16 114/72 96 Room Air 03/13/24 07:59 03/13/24 07:59 03/13/24 07:59 03/13/24 07:59 03/13/24 07:59 03/13/24 08:00 Narrative: General: cooperative and comfortable Orientation: alert, awake and oriented x3 Head: normal to inspection Neck: normal visual inspection Cardio: no JVD, regular rate, regular rhythm Chest palpation & inspection: normal inspection of the chest Resp Effort & Inspection: normal respiratory effort Abd: soft, non-tender, non-distended. Extremities: Warm well perfused, no edema Objective Lab Results 03/10/24 10:00 03/13/24 14:32 Microbiology Results Microbiology 03/10/24 10:18 Blood - Left Hand Blood Culture - Preliminary No Growth 3 Days 03/10/24 10:00 Blood - Left Antecubital Blood Culture - Preliminary No Growth 3 Days 03/10/24 14:45 Chou Port Urine Culture - Final No Growth 2 Days Meds Allergies and Active Meds Allergies fentanyl Allergy (Unknown, Verified 03/10/24 10:11) Dizziness, loopy indomethacin (From Indocin) Allergy (Unknown, Verified 03/10/24 10:11) Dizziness zolpidem (From Ambien) Allergy (Unknown, Verified 03/10/24 10:11) Confusion, memory loss Penicillins Allergy (Verified 03/10/24 10:11) Weakness Active Meds: Active Medications Generic Name Dose Route Start Last Admin Trade Name Freq PRN Reason Stop Dose Admin Acetaminophen 500 mg 03/10/24 21:00 03/13/24 08:02 Acetaminophen 500 Mg Tablet PO 03/10/25 20:59 500 mg BID ANIBAL Administration Allopurinol 300 mg 03/11/24 09:00 03/13/24 08:02 Allopurinol 300 Mg Tablet PO 03/11/25 08:59 300 mg DAILY ANIBAL Administration Apixaban 5 mg 03/10/24 21:00 03/13/24 08:02 Apixaban 5 Mg Tablet PO 03/10/25 20:59 5 mg BID ANIBAL Administration Atorvastatin Calcium 40 mg 03/11/24 09:00 03/13/24 08:02 Atorvastatin 40 Mg Tablet PO 03/11/25 08:59 40 mg DAILY ANIBAL Administration Bumetanide 1 mg 03/11/24 09:25 03/13/24 08:02 Bumetanide 1 Mg Tablet PO 03/11/25 09:24 1 mg BID ANIBAL Administration Carvedilol 3.125 mg 03/10/24 21:00 03/13/24 08:02 Carvedilol 3.125 Mg Tablet PO 03/10/25 20:59 3.125 mg BID ANIBAL Administration Clindamycin HCl 300 mg 03/10/24 14:00 03/13/24 08:02 Clindamycin 300 Mg Capsule PO 300 mg QID ANIBAL Administration Levothyroxine Sodium 150 mcg 03/11/24 06:30 03/13/24 05:33 Levothyroxine 150 Mcg Tablet PO 03/11/25 06:29 150 mcg DAILY@0630 ANIBAL Administration Eszopiclone 3 Mg 3 mg 03/10/24 22:00 03/13/24 01:32 Tablet PO 03/10/25 21:59 Not Given QHS ANIBAL Oxycodone/Acetaminophen 1 tab 03/10/24 13:54 03/12/24 19:31 Oxycodone/Acetaminophen 5-325 Mg Tablet PO 1 tab Q6HR PRN Administration pain Polyethylene Glycol 17 gm 03/10/24 15:00 03/11/24 12:21 Polyethylene Glycol 3350 17 Gm Powd.Pack PO 03/10/25 14:59 17 gm DAILY PRN Administration Constipation Polyethylene Glycol 17 gm 03/11/24 10:34 Polyethylene Glycol 3350 17 Gm Powd.Pack PO 03/11/25 10:33 DAILY PRN Constipation Senna/Docusate Sodium 2 tab 03/10/24 21:00 03/13/24 08:02 Sennosides/Docusate 8.6-50mg 1 Tab Tablet PO 03/10/25 20:59 2 tab BID ANIBAL Administration Sodium Chloride 0 ml 03/10/24 10:00 Sodium Chloride 0.9 % 10 Ml Syringe IV-PUSH 03/10/25 09:59 PRN PRN Flush Trazodone HCl 50 mg 03/10/24 21:00 03/12/24 21:48 Trazodone 50 Mg Tablet PO 03/10/25 20:59 50 mg QPM ANIBAL Administration A&P - Hospitalist Assessment/Plan (1) LIS (acute kidney injury): Plan 1. Acute urine retention with obstructive uropathy and LIS. - This occurred in the setting of recent spine surgery, pain medications, pain improved and able tomaintain out of bed to chair. - Voiding spontaneously at present, will plan for bladder scan q8h -Light hydration, normal saline at 75 cc/h -Continue to trend renal function until back to baseline, 1.3-1.5. 2. COVID-19 infection. Oxygen saturation 96% on room air. Observe. - likely incidental 3. Metabolic encephalopathy in the setting of the above. Resolved. 4. Recent lumbar decompression surgery 2 weeks ago in [facility]. No complications otherwise. PT OT and pain control. Continue treatment for chronic medical comorbidities with home regimen. Recent lumbar fusion surgery February 2024 A-fib on Eliquis HFrEF Hypothyroid Hypertension BPH Dyslipidemia Gout Sleep apnea Obesity class I Diet: regular Daily Labs: BMP Lines/Drains: PIV DVT ppx: apixiban 5 mg bid for afib Code status: Full Status: inpatient --> Discussed with patient at bedside. All questions answered. In agreement with theabove plan. Michele Knight MD Internal Medicine Hospitalist Attending Physician Documented By: Michele Knight MD 03/13/24 1430 Signed By: <Electronically signed by Michele Knight MD> 03/13/24 1800 [facility] Work Phone: Progress note Author Michele Knight [facility] HospitalNote Date/TimeJanuary 2024 4:13[place] [address] Hospitalist Progress Note Signed Patient: Tavo Wallis Jr MR# : [id number] : 1940 Acct:[id number] Age/Sex: 83 / M Adm Date: 5 Loc: 3T Room: [address] [place] [address] Type: ADM IN Attending Dr: Michele Knight MD Copies to: ~ Date of Service: 03/14/2024 Subjective Subjective Narrative: No acute events overnight, elevated creatinine this morning 2.39 up from 2.27, over 300 cc on postvoid residual, Chou catheter replaced. Exam Physical Exam Vital Signs: Temp Pulse Resp BP Pulse Ox O2 Del Method 97.8 F 65 19 112/71 92 L Room Air 03/13/24 20:10 03/14/24 04:15 03/14/24 04:15 03/14/24 04:15 03/14/24 04:15 03/14/24 06:26 Narrative: General: cooperative and comfortable Orientation: alert, awake and oriented x3 Head: normal to inspection Neck: normal visual inspection Cardio: no JVD, regular rate, regular rhythm Chest palpation & inspection: normal inspection of the chest Resp Effort & Inspection: normal respiratory effort Abd: soft, non-tender, non-distended. Extremities: Warm well perfused, no edema Objective Lab Results 03/10/24 10:00 03/14/24 05:34 Microbiology Results Microbiology 03/10/24 10:18 Blood - Left Hand Blood Culture - Preliminary No Growth 3 Days 03/10/24 10:00 Blood - Left Antecubital Blood Culture - Preliminary No Growth 3 Days Meds Allergies and Active Meds Allergies fentanyl Allergy (Unknown, Verified 03/10/24 10:11) Dizziness, loopy indomethacin (From Indocin) Allergy (Unknown, Verified 03/10/24 10:11) Dizziness zolpidem (From Ambien) Allergy (Unknown, Verified 03/10/24 10:11) Confusion, memory loss Penicillins Allergy (Verified 03/10/24 10:11) Weakness Active Meds: Active Medications Generic Name Dose Route Start Last Admin Trade Name Freq PRN Reason Stop Dose Admin Acetaminophen 500 mg 03/10/24 21:00 03/13/24 21:26 Acetaminophen 500 Mg Tablet PO 03/10/25 20:59 500 mg BID ANIBAL Administration Allopurinol 300 mg 03/11/24 09:00 03/13/24 08:02 Allopurinol 300 Mg Tablet PO 03/11/25 08:59 300 mg DAILY ANIBAL Administration Apixaban 2.5 mg 03/13/24 21:00 03/13/24 21:27 Apixaban 2.5 Mg Tablet PO 03/13/25 20:59 2.5 mg BID ANIBAL Administration Atorvastatin Calcium 40 mg 03/11/24 09:00 03/13/24 08:02 Atorvastatin 40 Mg Tablet PO 03/11/25 08:59 40 mg DAILY ANIBAL Administration Bumetanide 1 mg 03/11/24 09:25 03/13/24 21:26 Bumetanide 1 Mg Tablet PO 03/11/25 09:24 1 mg BID ANIBAL Administration Carvedilol 3.125 mg 03/10/24 21:00 03/13/24 21:27 Carvedilol 3.125 Mg Tablet PO 03/10/25 20:59 3.125 mg BID ANIBAL Administration Clindamycin HCl 300 mg 03/10/24 14:00 03/13/24 22:36 Clindamycin 300 Mg Capsule PO Not Given QID ANIBAL Levothyroxine Sodium 150 mcg 03/11/24 06:30 03/14/24 07:23 Levothyroxine 150 Mcg Tablet PO 03/11/25 06:29 150 mcg DAILY@0630 ANIBAL Administration Eszopiclone 3 Mg 3 mg 03/10/24 22:00 03/13/24 22:37 Tablet PO 03/10/25 21:59 Not Given QHS ANIBAL Oxycodone/Acetaminophen 1 tab 03/10/24 13:54 03/13/24 15:25 Oxycodone/Acetaminophen 5-325 Mg Tablet PO 1 tab Q6HR PRN Administration pain Polyethylene Glycol 17 gm 03/10/24 15:00 03/11/24 12:21 Polyethylene Glycol 3350 17 Gm Powd.Pack PO 03/10/25 14:59 17 gm DAILY PRN Administration Constipation Polyethylene Glycol 17 gm 03/11/24 10:34 Polyethylene Glycol 3350 17 Gm Powd.Pack PO 03/11/25 10:33 DAILY PRN Constipation Senna/Docusate Sodium 2 tab 03/10/24 21:00 03/13/24 21:26 Sennosides/Docusate 8.6-50mg 1 Tab Tablet PO 03/10/25 20:59 2 tab BID ANIBAL Administration Sodium Chloride 0 ml 03/10/24 10:00 Sodium Chloride 0.9 % 10 Ml Syringe IV-PUSH 03/10/25 09:59 PRN PRN Flush Trazodone HCl 50 mg 03/10/24 21:00 03/13/24 21:26 Trazodone 50 Mg Tablet PO 03/10/25 20:59 50 mg QPM ANIBAL Administration A&P - Hospitalist Assessment/Plan (1) LIS (acute kidney injury): Plan 1. Acute urine retention with obstructive uropathy and LIS. - This occurred in the setting of recent spine surgery, pain medications, pain improved and able tomaintain out of bed to chair. - Chou catheter replaced today due to high post-void residual > 300 cc, creatinine increased to2.39 from 2.27. Started flomax, if creatinine trending down on 03/16 will attempt void trial to determine discharge with or without chou catheter. 2. COVID-19 infection. Oxygen saturation 96% on room air. Observe. - likely incidental 3. Metabolic encephalopathy in the setting of the above. Resolved. 4. Recent lumbar decompression surgery 2 weeks ago in [facility]. No complications otherwise. PT OT and pain control. Continue treatment for chronic medical comorbidities with home regimen. Recent lumbar fusion surgery February 2024 A-fib on Eliquis HFrEF Hypothyroid Hypertension BPH Dyslipidemia Gout Sleep apnea Obesity class I Diet: regular Daily Labs: BMP Lines/Drains: PIV DVT ppx: apixiban 5 mg bid for afib Code status: Full Status: inpatient --> Discussed with patient at bedside. All questions answered. In agreement with theabove plan. Michele Knight MD Internal Medicine Hospitalist Attending Physician Documented By: Michele Knight MD 03/14/24 0852 Signed By: <Electronically signed by Michele Knight MD> 03/14/24 1613 [facility] Work Phone: Progress note Author Mario Jordan [facility] HospitalNote Date/TimeMay 2024 2:[place] [address] Hospitalist Progress Note Signed Patient: Tavo Wallis Jr MR# : [id number] : 1940 Acct:[id number] Age/Sex: 83 / M Adm Date: 5 Loc: Room: [address] [place] [address] Type: ADM IN Attending Dr: Mario Jordan MD Copies to: ~ Date of Service: 07/13/2024 Subjective Subjective Narrative: To be lying in the bed and is on room air. Chou catheter in situ hematuria improving. Exam Physical Exam Vital Signs: Temp Pulse Resp BP Pulse Ox O2 Del Method O2 Flow Rate 97.8 F 85 20 85/59 L 97 Room Air 2 07/13/24 07:47 07/13/24 13:05 07/13/24 11:40 07/13/24 13:05 07/13/24 11:40 07/13/24 11:40 07/13/24 04:00 Narrative: General: Awake alert, no acute distress HEENT: head atraumatic, normocephalic, moist mucous membranes Neck: supple no masses, no lymphadenopathy CVS: regular rate and rhythm, no murmurs or gallops Respiratory: diminished breath sound with crackles, no wheezing GI: soft, nondistended, nontender, positive bowel sounds with no organomegaly Extremity: moves all extremities, no restrictions of movements, no calf tenderness bilateral 3-4+ pedal edema Neuro: AOx3, CN II-VII intact. Moves all extremities in all planes of motion. Skin: intact no rashes or lesions Objective Lab Results 07/13/24 05:14 07/13/24 05:14 Microbiology Results Microbiology 07/12/24 16:19 Clean Void Midstream Urine Culture - Preliminary Gram Negative Bacilli 07/12/24 15:00 Blood - Left Arm Blood Culture - Preliminary Pseudomonas aeruginosa 07/12/24 15:00 Blood - Left Arm Bacterial ID (NA Multiplex Assay) - Final 07/12/24 15:07 Blood - Left Forearm Blood Culture - Preliminary Enterococcus faecalis Gram Negative Bacilli 07/12/24 15:07 Blood - Left Forearm Bacterial ID (NA Multiplex Assay) - Final 07/12/24 15:03 Nasopharyngeal SARS-CoV-2, Influenza & RSV (PCR) - Final Meds Allergies and Active Meds Allergies fentanyl Allergy (Unknown, Verified 07/12/24 15:55) Dizziness, loopy indomethacin (From Indocin) Allergy (Unknown, Verified 07/12/24 15:55) Dizziness zolpidem (From Ambien) Allergy (Unknown, Verified 07/12/24 15:55) Confusion, memory loss Penicillins Allergy (Verified 07/12/24 15:55) Weakness Active Meds: Active Medications Generic Name Dose Route Start Last Admin Trade Name Freq PRN Reason Stop Dose Admin Acetaminophen 500 mg 07/12/24 22:00 07/13/24 14:10 Acetaminophen 500 Mg Tablet PO 07/12/25 21:59 500 mg TID ANIBAL Administration Acetaminophen 650 mg 07/12/24 17:00 Acetaminophen 325 Mg Tablet PO 07/12/25 16:59 Q6HR PRN Pain Scale 1 - 3 or fever Albuterol/Ipratropium 3 ml 07/12/24 16:57 Ipratropium/Albuterol 0.5-3 Mg 3 Ml Ampul.Neb INHALATION 07/12/25 16:56 Q6HR PRN shortness of breath or wheezing Allopurinol 300 mg 07/13/24 09:00 07/13/24 08:22 Allopurinol 300 Mg Tablet PO 07/13/25 08:59 300 mg DAILY ANIBAL Administration Atorvastatin Calcium 40 mg 07/13/24 09:00 07/13/24 08:22 Atorvastatin 40 Mg Tablet PO 07/13/25 08:59 40 mg DAILY ANIBAL Administration Furosemide 40 mg 07/13/24 08:00 07/13/24 08:22 Furosemide 40 Mg/4 Ml Vial IV-PUSH 07/13/25 07:59 40 mg BID@0800,1600 ANIBAL Administration Cefepime HCl 1 gm in 50 mls @ 12.5 mls/hr 07/12/24 20:00 07/13/24 08:22 Maxipime IV 100 mls/hr Q12H ANIBAL Administration Vancomycin HCl 1.25 gm/ 275 mls @ 183.333 mls/hr 07/13/24 18:00 Dextrose IV 07/13/25 17:59 Q12H ANIBAL Levothyroxine Sodium 150 mcg 07/13/24 06:30 07/13/24 06:20 Levothyroxine 150 Mcg Tablet PO 07/13/25 06:29 150 mcg DAILY.0630 ANIBAL Administration Magnesium Oxide 400 mg 07/13/24 09:00 07/13/24 08:22 Magnesium Oxide 400 Mg Tablet PO 07/13/25 08:59 400 mg DAILY ANIBAL Administration Pom (Eszopiclone 3 3 mg 07/12/24 22:00 07/12/24 21:58 Mg Tablet) PO 07/12/25 21:59 Not Given QHS ANIBAL Oxycodone/Acetaminophen 1 tab 07/12/24 17:00 Oxycodone/Acetaminophen 5-325 Mg Tablet PO Q4H PRN Pain Scale 4 - 7 Potassium Chloride 20 meq 07/13/24 09:00 07/13/24 08:22 Potassium Chloride Er 20 Meq Tab.Er.Prt PO 07/13/25 08:59 20 meq DAILY ANIBAL Administration Sodium Chloride 0 ml 07/12/24 14:41 07/12/24 16:12 Sodium Chloride 0.9 % 10 Ml Syringe IV-PUSH 07/12/25 14:40 10 ml PRN PRN Administration Flush Trazodone HCl 50 mg 07/12/24 16:57 Trazodone 50 Mg Tablet PO 07/12/25 16:56 QHS PRN insomnia Vancomycin HCl 1 each 07/12/24 17:05 Vancomycin - Pharmacy Dosing 1 Each Miscell IV ONCE PRN ZZ.Pharmacy Consult Protocol A&P - Hospitalist Assessment/Plan (1) Hematuria: (2) Hypoxia: (3) CHF exacerbation: (4) Sepsis: (5) Hypothyroidism: (6) Hypertension: (7) BPH (benign prostatic hyperplasia): (8) Atrial fibrillation: Plan This is a 83-year-old male with significant past medical history of A-fib, hypothyroidism, hypertension, BPH on chronic Chou since March 2024 exchangingevery month, hyperlipidemia, gout, cardiomyopathy, history of CHF, was sent [facility] ED from [facility] for chief concern for hematuria. Patient had appointment with urologist today who exchangehis Chou and patient mentions that he has been bleeding since thenwith minimal urine output. Daughter at bedside. Denies any pain any urgency frequency dysuria or lower abdominal pain. Denies any flank pain. Denies any fever or chills. Patient is on antibiotics for shortness of breath for couple of days. He mentions worsening shortness of breath with cough and some sputum production for 4 to 5 days. In the ED initially he was slightly hypotensive andresolved on its own. Patient got Lasix 40 units and magnesium replacement. Lactate was 2.3. Lab work shows WBC of 6.5, creatinine 1.62, lactate of 2.3, magnesium 1.7, normal liver enzymes, troponin 21, BNP is pending. Urinalysis shows innumerable RBCs and WBC of 10-19. And 1+ bacteria. COVID test negative. Chest x-ray shows minimal hilar congestion no consolidation suggesting pneumonia. Urine culture and blood culture pending. Patient was also started on broad-spectrum antibiotics. Urine culture grew gram-negative bacilli. Finalculture pending. And blood culture grew gram-negative bacilli and Enterococcus faecalis. Previous history of urine culture growing Pseudomonas and Proteus sensitive to cefepime. Plan: - Admitted to regular nursing floor with telemetry - Continue on broad-spectrum antibiotics for concern for pneumonia/UTI - Follow-up sputum culture blood culture and urine culture and MRSA PCR - Started on continuous bladder irrigation as per urologist recommendation. Urology on consult appreciate recommendation - Eliquis on hold in setting of hematuria - Continue POA medications-allopurinol, Lipitor, Bumex, magnesium, trazodone - Continue on IV diuresis - Monitor input and output - Daily weights - Heart healthy diet - PT/OT-residential facility - Full code SCD for DVT prophylaxis Documented By: Mario Jordan MD 07/13/24 2435 Signed By: <Electronically signed by Mario Jordan MD> 07/13/24 1438 [facility] Work Phone: Progress note Author Mario Jordan [facility] HospitalNote Date/TimeMay 2024 12:47pmA[place]ia [place] [id number] Hospitalist Progress Note Signed Patient: Tavo Wallis Jr MR# : [id number] : 1940 Acct:[id number] Age/Sex: 83 / M Adm Date: 5 Loc: 4 Room: [address] [place] [address] Type: ADM IN Attending Dr: Mario Jordan MD Copies to: ~ Date of Service: 07/14/2024 Subjective Subjective Narrative: Patient is comfortably lying in the bed and is on room air. CBI was stopped andpatient was started on Chou catheter. Has pinkish discoloration of the urine. Daughter bedside also mentions swelling in the right leg suggestive of abscess. General surgery consulted. Lab work shows leukocytosis trending down- 15.7 today, potassium 3.3 and replaced, creatinine 1.63 and trending down Exam Physical Exam Vital Signs: Temp Pulse Resp BP Pulse Ox O2 Del Method O2 Flow Rate 98.7 F 80 16 110/58 L 96 Room Air 2 07/14/24 12:00 07/14/24 12:00 07/14/24 12:00 07/14/24 12:00 07/14/24 12:00 07/14/24 12:00 07/13/24 04:00 Narrative: General: Awake alert, no acute distress HEENT: head atraumatic, normocephalic, moist mucous membranes Neck: supple no masses, no lymphadenopathy CVS: regular rate and rhythm, no murmurs or gallops Respiratory: diminished breath sound with crackles, no wheezing GI: soft, nondistended, nontender, positive bowel sounds with no organomegaly Extremity: moves all extremities, no restrictions of movements, no calf tenderness bilateral 3-4+ pedal edema, with small 3 to 4 cm swelling in the lateral aspect of the mid right leg with erythema and tenderness and fluctuance but not pulsatile Neuro: AOx3, CN II-VII intact. Moves all extremities in all planes of motion. Skin: intact no rashes or lesions Objective Lab Results 07/14/24 05:17 07/14/24 05:17 Microbiology Results Microbiology 07/12/24 16:19 Clean Void Midstream Urine Culture - Final Pseudomonas aeruginosa 07/12/24 15:07 Blood - Left Forearm Blood Culture - Preliminary Enterococcus faecalis Pseudomonas aeruginosa 07/12/24 15:07 Blood - Left Forearm Bacterial ID (NA Multiplex Assay) - Final 07/12/24 15:00 Blood - Left Arm Blood Culture - Preliminary Pseudomonas aeruginosa 07/12/24 15:00 Blood - Left Arm Bacterial ID (NA Multiplex Assay) - Final 07/13/24 18:56 Nasal Nasal Screen MRSA/MSSA - Final 07/13/24 17:50 Stool Stool Occult Blood (BELLA) - Final Meds Allergies and Active Meds Allergies fentanyl Allergy (Unknown, Verified 07/12/24 15:55) Dizziness, loopy indomethacin (From Indocin) Allergy (Unknown, Verified 07/12/24 15:55) Dizziness zolpidem (From Ambien) Allergy (Unknown, Verified 07/12/24 15:55) Confusion, memory loss Penicillins Allergy (Verified 07/12/24 15:55) Weakness Active Meds: Active Medications Generic Name Dose Route Start Last Admin Trade Name Freq PRN Reason Stop Dose Admin Acetaminophen 500 mg 07/12/24 22:00 07/14/24 09:05 Acetaminophen 500 Mg Tablet PO 07/12/25 21:59 500 mg TID AINBAL Administration Acetaminophen 650 mg 07/12/24 17:00 Acetaminophen 325 Mg Tablet PO 07/12/25 16:59 Q6HR PRN Pain Scale 1 - 3 or fever Albuterol/Ipratropium 3 ml 07/12/24 16:57 Ipratropium/Albuterol 0.5-3 Mg 3 Ml Ampul.Neb INHALATION 07/12/25 16:56 Q6HR PRN shortness of breath or wheezing Allopurinol 300 mg 07/13/24 09:00 07/14/24 09:05 Allopurinol 300 Mg Tablet PO 07/13/25 08:59 300 mg DAILY ANIBAL Administration Atorvastatin Calcium 40 mg 07/13/24 09:00 07/14/24 09:05 Atorvastatin 40 Mg Tablet PO 07/13/25 08:59 40 mg DAILY ANIBAL Administration Furosemide 40 mg 07/13/24 08:00 07/14/24 09:05 Furosemide 40 Mg/4 Ml Vial IV-PUSH 07/13/25 07:59 40 mg BID@0800,1600 ANIBAL Administration Vancomycin HCl 1.25 gm/ 275 mls @ 183.333 mls/hr 07/13/24 18:00 07/14/24 09:05 Dextrose IV 07/13/25 17:59 183.33 mls/hr Q12H ANIBAL Administration Cefepime HCl 2 gm in 50 mls @ 12.5 mls/hr 07/13/24 20:00 07/14/24 09:05 Maxipime IV 12.5 mls/hr Q12H ANIBAL Administration Levothyroxine Sodium 150 mcg 07/13/24 06:30 07/14/24 06:43 Levothyroxine 150 Mcg Tablet PO 07/13/25 06:29 150 mcg DAILY.0630 ANIBAL Administration Magnesium Oxide 400 mg 07/13/24 09:00 07/14/24 09:05 Magnesium Oxide 400 Mg Tablet PO 07/13/25 08:59 400 mg DAILY ANIBAL Administration Eszopiclone 3 Mg 3 mg 07/12/24 22:00 07/13/24 21:44 Tablet PO 07/12/25 21:59 Not Given QHS ANIBAL Pom (Eszopiclone 3 3 mg 07/20/24 22:00 Mg Tablet) PO 07/20/25 21:59 QHS ANIBAL Oxycodone/Acetaminophen 1 tab 07/12/24 17:00 07/13/24 22:05 Oxycodone/Acetaminophen 5-325 Mg Tablet PO 1 tab Q4H PRN Administration Pain Scale 4 - 7 Polyethylene Glycol 17 gm 07/14/24 10:05 07/14/24 12:28 Polyethylene Glycol 3350 17 Gm Powd.Pack PO 07/14/25 10:04 17 gm BID ANIBAL Administration Potassium Chloride 20 meq 07/13/24 09:00 07/14/24 09:05 Potassium Chloride Er 20 Meq Tab.Er.Prt PO 07/13/25 08:59 20 meq DAILY ANIBAL Administration Sennosides 8.8 mg 07/14/24 10:05 07/14/24 12:28 Sennosides Syrup 8.8 Mg/5 Ml Udc PO 07/14/25 10:04 8.8 mg BID ANIBAL Administration Sodium Chloride 0 ml 07/12/24 14:41 07/12/24 16:12 Sodium Chloride 0.9 % 10 Ml Syringe IV-PUSH 07/12/25 14:40 10 ml PRN PRN Administration Flush Trazodone HCl 50 mg 07/12/24 16:57 07/13/24 21:44 Trazodone 50 Mg Tablet PO 07/12/25 16:56 50 mg QHS PRN Administration insomnia Vancomycin HCl 1 each 07/12/24 17:05 Vancomycin - Pharmacy Dosing 1 Each Miscell IV ONCE PRN ZZ.Pharmacy Consult Protocol A&P - Hospitalist Assessment/Plan (1) Hematuria: (2) Hypoxia: (3) CHF exacerbation: (4) Sepsis: (5) Hypothyroidism: (6) Hypertension: (7) BPH (benign prostatic hyperplasia): (8) Atrial fibrillation: Plan This is a 83-year-old male with significant past medical history of A-fib, hypothyroidism, hypertension, BPH on chronic Chou since March 2024 exchangingevery month, hyperlipidemia, gout, cardiomyopathy, history of CHF, was sent [facility] ED from [facility] for chief concern for hematuria. Patient had appointment with urologist today who exchangehis Chou and patient mentions that he has been bleeding since thenwith minimal urine output. Daughter at bedside. Denies any pain any urgency frequency dysuria or lower abdominal pain. Denies any flank pain. Denies any fever or chills. Patient is on antibiotics for shortness of breath for couple of days. He mentions worsening shortness of breath with cough and some sputum production for 4 to 5 days. In the ED initially he was slightly hypotensive andresolved on its own. Patient got Lasix 40 units and magnesium replacement. Lactate was 2.3. Lab work shows WBC of 6.5, creatinine 1.62, lactate of 2.3, magnesium 1.7, normal liver enzymes, troponin 21, BNP is pending. Urinalysis shows innumerable RBCs and WBC of 10-19. And 1+ bacteria. COVID test negative. Chest x-ray shows minimal hilar congestion no consolidation suggesting pneumonia. Urine culture and blood culture pending. Patient was also started on broad-spectrum antibiotics. Urine culture grew gram-negative bacilli. Finalculture pending. And blood culture grew gram-negative bacilli and Enterococcus faecalis. Previous history of urine culture growing Pseudomonas and Proteus sensitive to cefepime. Daughter bedside also mentions swelling in the right leg suggestive of abscess. General surgery consulted. Plan: - Admitted to regular nursing floor with telemetry - Continue on broad-spectrum antibiotics for concern for pneumonia/UTI/abscess - Follow-up sputum culture blood culture and urine culture and MRSA PCR - Urology on consult appreciate recommendation - Eliquis on hold in setting of hematuria - Continue POA medications-allopurinol, Lipitor, Bumex, magnesium, trazodone - Will switch to home diuretic dose and monitor daily weights. - Monitor input and output - Daily weights - Heart healthy diet - PT/OT-residential facility - General Surgery consulted for abscess in the right mid leg lateral aspect - Full code SCD for DVT prophylaxis Documented By: Mario Jordan MD 07/14/24 1238 Signed By: <Electronically signed by Mario Jordan MD> 07/14/[address] [facility] Work Phone: progress note Author Bryce Villeda [facility] HospitalNote Date/TimeMay 2024 2:[place] [address] Progress Note Signed Patient: Tavo Wallis Jr MR# : [id number] : 1940 Acct:[id number] Age/Sex: 84 / M Adm Date: 5 Loc: Room: [address] [place] [address] Type: ADM IN Attending Dr: Mario Jordan MD Copies to: ~ Date of Service: 2024 Progress Narrative Note PROGRESS NOTE Progress Note: I performed an I&D of right lower extremity hematoma at the bedside. The wound is packed. He can be discharged with daily packing. There is no need for surgical follow-up, he can follow-up with his primary care physician. I will sign off the case at this time. Documented By: Bryce Villeda DO 07/15/24 12 19 Signed By: <Electronically signed by Bryce Villeda DO> 07/15/[address] [facility] Work Phone: progress note Author Mario Jordan [facility] HospitalNote Date/TimeMay 2024 1:39pm[place] [address] Hospitalist Progress Note Signed Patient: Tavo Wallis Jr MR# : [id number] : 1940 Acct:[id number] Age/Sex: 84 / M Adm Date: 5 Loc: Room: [address] [place] [address] Type: ADM IN Attending Dr: Mario Jordan MD Copies to: ~ Date of Service: 2024 Subjective Subjective Narrative: Patient is comfortably lying in the bed and is on room air. No hematuria seen in urinary bag. Patient had I&D of the swelling and was found to have hematoma. WBC is 11.2 and trending downwards, hemoglobin 8 and stable, potassium 3.5. Creatinine 1.44 and trending downwards. Exam Physical Exam Vital Signs: Temp Pulse Resp BP Pulse Ox O2 Del Method O2 Flow Rate 98.0 F 60 18 136/72 97 Room Air 2 07/15/24 08:00 07/15/24 08:00 07/15/24 08:00 07/15/24 08:00 07/15/24 08:00 07/15/24 08:00 07/13/24 04:00 Narrative: General: Awake alert, no acute distress HEENT: head atraumatic, normocephalic, moist mucous membranes Neck: supple no masses, no lymphadenopathy CVS: regular rate and rhythm, no murmurs or gallops Respiratory: diminished breath sound with crackles, no wheezing GI: soft, nondistended, nontender, positive bowel sounds with no organomegaly Extremity: moves all extremities, no restrictions of movements, no calf tenderness bilateral 3-4+ pedal edema, with small 3 to 4 cm swelling in the lateral aspect of the mid right leg with erythema and tenderness and fluctuance but not pulsatile Neuro: AOx3, CN II-VII intact. Moves all extremities in all planes of motion. Skin: intact no rashes or lesions Objective Lab Results 07/15/24 04:31 07/15/24 04:31 Microbiology Results Microbiology 07/12/24 16:19 Clean Void Midstream Urine Culture - Final Pseudomonas aeruginosa Enterococcus faecalis 07/12/24 15:07 Blood - Left Forearm Blood Culture - Preliminary Enterococcus faecalis Pseudomonas aeruginosa 07/12/24 15:07 Blood - Left Forearm Bacterial ID (NA Multiplex Assay) - Final 07/12/24 15:00 Blood - Left Arm Blood Culture - Final Pseudomonas aeruginosa 07/12/24 15:00 Blood - Left Arm Bacterial ID (NA Multiplex Assay) - Final Meds Allergies and Active Meds Allergies fentanyl Allergy (Unknown, Verified 07/12/24 15:55) Dizziness, loopy indomethacin (From Indocin) Allergy (Unknown, Verified 07/12/24 15:55) Dizziness zolpidem (From Ambien) Allergy (Unknown, Verified 07/12/24 15:55) Confusion, memory loss Penicillins Allergy (Verified 07/12/24 15:55) Weakness Active Meds: Active Medications Generic Name Dose Route Start Last Admin Trade Name Freq PRN Reason Stop Dose Admin Acetaminophen 500 mg 07/12/24 22:00 07/15/24 08:33 Acetaminophen 500 Mg Tablet PO 07/12/25 21:59 500 mg TID ANIBAL Administration Acetaminophen 650 mg 07/12/24 17:00 Acetaminophen 325 Mg Tablet PO 07/12/25 16:59 Q6HR PRN Pain Scale 1 - 3 or fever Albuterol/Ipratropium 3 ml 07/12/24 16:57 Ipratropium/Albuterol 0.5-3 Mg 3 Ml Ampul.Neb INHALATION 07/12/25 16:56 Q6HR PRN shortness of breath or wheezing Allopurinol 300 mg 07/13/24 09:00 07/15/24 08:33 Allopurinol 300 Mg Tablet PO 07/13/25 08:59 300 mg DAILY ANIBAL Administration Atorvastatin Calcium 40 mg 07/13/24 09:00 07/15/24 08:33 Atorvastatin 40 Mg Tablet PO 07/13/25 08:59 40 mg DAILY ANIBAL Administration Bumetanide 1 mg 07/15/24 08:00 07/15/24 08:33 Bumetanide 1 Mg Tablet PO 07/15/25 07:59 1 mg DAILY@0800 ANIBAL Administration Vancomycin HCl 1.25 gm/ 275 mls @ 183.333 mls/hr 07/13/24 18:00 07/15/24 09:47 Dextrose IV 07/13/25 17:59 183.33 mls/hr Q12H ANIBAL Administration Cefepime HCl 2 gm in 50 mls @ 12.5 mls/hr 07/13/24 20:00 07/15/24 08:34 Maxipime IV 12.5 mls/hr Q12H ANIBAL Administration Levothyroxine Sodium 150 mcg 07/13/24 06:30 07/15/24 08:33 Levothyroxine 150 Mcg Tablet PO 07/13/25 06:29 150 mcg DAILY.0630 ANIBAL Administration Magnesium Oxide 400 mg 07/13/24 09:00 07/15/24 08:33 Magnesium Oxide 400 Mg Tablet PO 07/13/25 08:59 400 mg DAILY ANIBAL Administration Eszopiclone 3 Mg 3 mg 07/12/24 22:00 07/14/24 23:17 Tablet PO 07/12/25 21:59 Not Given QHS ANIBAL Pom (Eszopiclone 3 3 mg 07/20/24 22:00 Mg Tablet) PO 07/20/25 21:59 QHS ANIBAL Oxycodone/Acetaminophen 1 tab 07/12/24 17:00 07/13/24 22:05 Oxycodone/Acetaminophen 5-325 Mg Tablet PO 1 tab Q4H PRN Administration Pain Scale 4 - 7 Polyethylene Glycol 17 gm 07/14/24 10:05 07/15/24 08:17 Polyethylene Glycol 3350 17 Gm Powd.Pack PO 07/14/25 10:04 Not Given BID ANIBAL Potassium Chloride 20 meq 07/13/24 09:00 07/15/24 08:33 Potassium Chloride Er 20 Meq Tab.Er.Prt PO 07/13/25 08:59 20 meq DAILY ANIBAL Administration Sennosides 8.8 mg 07/14/24 10:05 07/15/24 08:17 Sennosides Syrup 8.8 Mg/5 Ml Udc PO 07/14/25 10:04 Not Given BID ANIBAL Sodium Chloride 0 ml 07/12/24 14:41 07/15/24 09:47 Sodium Chloride 0.9 % 10 Ml Syringe IV-PUSH 07/12/25 14:40 10 ml PRN PRN Administration Flush Trazodone HCl 50 mg 07/12/24 16:57 07/14/24 21:14 Trazodone 50 Mg Tablet PO 07/12/25 16:56 50 mg QHS PRN Administration insomnia Vancomycin HCl 1 each 07/12/24 17:05 Vancomycin - Pharmacy Dosing 1 Each Miscell IV ONCE PRN ZZ.Pharmacy Consult Protocol A&P - Hospitalist Assessment/Plan (1) Hematuria: (2) Hypoxia: (3) CHF exacerbation: (4) Sepsis: (5) Hypothyroidism: (6) Hypertension: (7) BPH (benign prostatic hyperplasia): (8) Atrial fibrillation: Plan This is a 83-year-old male with significant past medical history of A-fib, hypothyroidism, hypertension, BPH on chronic Chou since March 2024 exchangingevery month, hyperlipidemia, gout, cardiomyopathy, history of CHF, was sent [facility] ED from [facility] for chief concern for hematuria. Patient had appointment with urologist today who exchangehis Chou and patient mentions that he has been bleeding since thenwith minimal urine output. Daughter at bedside. Denies any pain any urgency frequency dysuria or lower abdominal pain. Denies any flank pain. Denies any fever or chills. Patient is on antibiotics for shortness of breath for couple of days. He mentions worsening shortness of breath with cough and some sputum production for 4 to 5 days. In the ED initially he was slightly hypotensive andresolved on its own. Patient got Lasix 40 units and magnesium replacement. Lactate was 2.3. Lab work shows WBC of 6.5, creatinine 1.62, lactate of 2.3, magnesium 1.7, normal liver enzymes, troponin 21, BNP is pending. Urinalysis shows innumerable RBCs and WBC of 10-19. And 1+ bacteria. COVID test negative. Chest x-ray shows minimal hilar congestion no consolidation suggesting pneumonia. Urine culture and blood culture pending. Patient was also started on broad-spectrum antibiotics. Urine culture grew gram-negative bacilli. Finalculture pending. And blood culture grew gram-negative bacilli and Enterococcus faecalis. Previous history of urine culture growing Pseudomonas and Proteus sensitive to cefepime. Daughter bedside also mentions swelling in the right leg suggestive of abscess. General surgery consulted. Patient had I&D and was found to have hematoma. Plan: - Admitted to regular nursing floor with telemetry - Continue on broad-spectrum antibiotics for concern for pneumonia/UTI/abscess. ID managing antibiotics - Follow-up sputum culture blood culture and urine culture and MRSA PCR - Urology on consult appreciate recommendation - Will restart his Eliquis - Continue POA medications-allopurinol, Lipitor, Bumex, magnesium, trazodone - Continue on home diuretic dose and monitor daily weights. - Monitor input and output - Daily weights - Heart healthy diet - PT/OT-residential facility - Full code SCD for DVT prophylaxis Documented By: Mario Jordan MD 07/15/241334 Signed By: <Electronically signed by Mario Jordan MD> 07/15/24 1339 [facility] Work Phone: Progress note Author Frankie Reynolds [facility] HospitalNote Date/TimeMay 2024 9:28[place] [id number] Infect. Disease Progress Note Signed Patient: Tavo Wallis Jr MR# : [id number] : 1940 Acct:[id number] Age/Sex: 84 / M Adm Date: 5 Loc: Room: [address] [place] [address] Type: ADM IN Attending Dr: Mario Jordan MD Copies to: ~ Date of Service: 07/16/2024 Subjective Interval history: Patient feels okay but family in room and both patient and family are frustratedthat patient is notphysically getting any stronger especially with his legs. Patient did have I&D of a right lowerleg fluid collection which seems to be hematoma. Culture was sent of this. Patient remains on cefepime and vancomycin Exam Physical Exam Vital Signs: Vital Signs Temp Pulse Resp BP Pulse Ox O2 Del Method 07/16/24 05:23 70 18 160/92 H 98 Room Air 07/15/24 20:00 Room Air 07/15/24 20:00 18 118/59 L 98 Room Air 07/15/24 16:41 98.1 F 69 14 107/57 L 99 Room Air 07/15/24 12:00 98.1 F 72 16 106/65 97 Room Air Intake and Output 07/15/24 07/16/24 07/16/24 23:59 07:59 15:59 Intake Total 700 / 800 450 / 450 Output Total 3250 / 5100 2300 / 2300 Balance -2550 / -4300 -1850 / -1850 Intake: Oral 700 / 700 450 / 450 Output: Urine Amount (Catheter) 3250 / 5100 2300 / 2300 3-way Urethral 3250 / 5100 2300 / 2300 Other: # Bowel Movements 3 Weight 89.4 kg Date of Last Bowel Movement 07/15/24 Patient Weight 07/16/24 23:59 Weight 89.4 kg Const General: comfortable and no acute distress Orientation: oriented x3 HEENT Head: normal to inspection Ears: hearing grossly normal bilaterally Face and sinus: normal facial exam Mouth: oral mucosae normal Eyes General: appearance normal, both eyes and all related structures Neck Neck: normal visual inspection Chest Chest palpation & inspection: normal inspection of the chest Resp Effort & Inspection: normal respiratory effort Cardio Rate: regular rate Rhythm: regular rhythm GI Inspection: normal to inspection Palpation: soft and nontender Skin Other: Right lower leg with dressing intact. Extrem General: edema Objective Labs CBC/BMP: CBC, BMP 07/16/24 05:43 Corrected WBC 7.9 Uncorrected WBC Count 7.9 RBC 2.88 L Hgb 8.6 L Hct 26.3 L Plt Count 151 Sodium 137 Potassium 3.6 Chloride 104 Carbon Dioxide 26.5 Anion Gap 10.1 BUN 26 H Creatinine 1.15 Calcium 8.2 L Labs: 07/16/24 05:43 BUN 26 H Creatinine 1.15 Microbiology Microbiology: Microbiology - Results from entire visit 07/12/24 15:07 Blood - Left Forearm Blood Culture - Final Enterococcus faecalis Pseudomonas aeruginosa 07/12/24 15:07 Blood - Left Forearm Bacterial ID (NA Multiplex Assay) - Final 07/12/24 16:19 Clean Void Midstream Urine Culture - Final Pseudomonas aeruginosa Enterococcus faecalis 07/12/24 15:00 Blood - Left Arm Blood Culture - Final Pseudomonas aeruginosa 07/12/24 15:00 Blood - Left Arm Bacterial ID (NA Multiplex Assay) - Final 07/13/24 18:56 Nasal Nasal Screen MRSA/MSSA - Final 07/13/24 17:50 Stool Stool Occult Blood (BELLA) - Final 07/12/24 15:03 Nasopharyngeal SARS-CoV-2, Influenza & RSV (PCR) - Final Allergies and Medications Allergies and Active Meds Allergies fentanyl Allergy (Unknown, Verified 07/12/24 15:55) Dizziness, loopy indomethacin (From Indocin) Allergy (Unknown, Verified 07/12/24 15:55) Dizziness zolpidem (From Ambien) Allergy (Unknown, Verified 07/12/24 15:55) Confusion, memory loss Penicillins Allergy (Verified 07/12/24 15:55) Weakness Active Medications Acetaminophen (Acetaminophen 500 Mg Tablet) 500 mg PO TID [facility] Stop: 07/12/25 21:59 Last Admin: 07/15/24 22:09 Dose: 500 mg Acetaminophen (Acetaminophen 325 Mg Tablet) 650 mg PO Q6HR PRN PRN Reason: Pain Scale 1 - 3 or fever Stop: 07/12/25 16:59 Albuterol/Ipratropium (Ipratropium/Albuterol 0.5-3 Mg 3 Ml Ampul.Neb) 3 ml INHALATION Q6HR PRN PRN Reason: shortness of breath or wheezing Stop: 07/12/25 16:56 Allopurinol (Allopurinol 300 Mg Tablet) 300 mg PO DAILY [facility] Stop: 07/13/25 08:59 Last Admin: 07/15/24 08:33 Dose: 300 mg Apixaban (Apixaban 5 Mg Tablet) 5 mg PO BID [facility] Stop: 07/15/25 20:59 Last Admin: 07/15/24 22:09 Dose: 5 mg Atorvastatin Calcium (Atorvastatin 40 Mg Tablet) 40 mg PO DAILY [facility] Stop: 07/13/25 08:59 Last Admin: 07/15/24 08:33 Dose: 40 mg Bumetanide (Bumetanide 1 Mg Tablet) 1 mg PO DAILY@0800 [facility] Stop: 07/15/25 07:59 Last Admin: 07/15/24 08:33 Dose: 1 mg Cefepime HCl (Maxipime) 2 gm in 50 mls @ 12.5 mls/hr IV Q12H [facility] Last Admin: 07/15/24 20:05 Dose: 12.5 mls/hr Vancomycin HCl (Vancomycin) 1 gm in 250 mls @ 250 mls/hr IV Q24H [facility] Levothyroxine Sodium (Levothyroxine 150 Mcg Tablet) 150 mcg PO DAILY.0630 [facility] Stop: 07/13/25 06:29 Last Admin: 07/16/24 05:21 Dose: 150 mcg Magnesium Oxide (Magnesium Oxide 400 Mg Tablet) 400 mg PO DAILY [facility] Stop: 07/13/25 08:59 Last Admin: 07/15/24 08:33 Dose: 400 mg Eszopiclone 3 Mg (Tablet) 3 mg PO QHS [facility] Stop: 07/12/25 21:59 Last Admin: 07/15/24 22:09 Dose: 3 mg Pom (Eszopiclone 3 (Mg Tablet)) 3 mg PO QHS [facility] Stop: 07/20/25 21:59 Oxycodone/Acetaminophen (Oxycodone/Acetaminophen 5-325 Mg Tablet) 1 tab PO Q4H PRN PRN Reason: Pain Scale 4 - 7 Last Admin: 07/13/24 22:05 Dose: 1 tab Polyethylene Glycol (Polyethylene Glycol 3350 17 Gm Powd.Pack) 17 gm PO BID [facility] Stop: 07/14/25 10:04 Last Admin: 07/15/24 20:11 Dose: Not Given Potassium Chloride (Potassium Chloride Er 20 Meq Tab.Er.Prt) 20 meq PO DAILY [facility] Stop: 07/13/25 08:59 Last Admin: 07/15/24 08:33 Dose: 20 meq Sennosides (Sennosides Syrup 8.8 Mg/5 Ml Udc) 8.8 mg PO BID [facility] Stop: 07/14/25 10:04 Last Admin: 07/15/24 20:12 Dose: Not Given Sodium Chloride (Sodium Chloride 0.9 % 10 Ml Syringe) 0 ml IV-PUSH PRN PRN PRN Reason: Flush Stop: 07/12/25 14:40 Last Admin: 07/15/24 20:06 Dose: 10 ml Trazodone HCl (Trazodone 50 Mg Tablet) 50 mg PO QHS PRN PRN Reason: insomnia Stop: 07/12/25 16:56 Last Admin: 07/14/24 21:14 Dose: 50 mg Vancomycin HCl (Vancomycin - Pharmacy Dosing 1 Each Miscell) 1 each IV ONCE PRN; Protocol PRN Reason: STEFFEN.Pharmacy Consult A&P - Infectious Disease Assessment/Plan (1) Sepsis: Qualifiers: Sepsis acute organ dysfunction status: without acute organ dysfunction (2) Complicated UTI (urinary tract infection): (3) Bacteremia due to Pseudomonas: (4) Bacteremia due to Enterococcus: (5) Abscess of left leg: Plan I&D of right lower leg found coagulated blood consistent with hematoma. Culturesent. Patient remains on vancomycin cefepime. Will place PICC line given complicated UTI with bacteremia. Will follow-up on lower leg culture. Patient and family's main complaint is that he continues to be weak. Apparently had back surgery at an outside hospital but then got infected. Patient not complaining of anyback pain. Apparently he is just weak and is upper thighs. intermediate that he has been to on and off therapy only happens once a day and it sounds like he sits in a chair or bed for the rest of thetime. This is according to his family member. Documented By: Frankie Reynolds MD 07/16/24918 Signed By: <Electronically signed by MD Frankie Reynolds> 07/16/24927 [facility] Work Phone: Progress note Author Mario Jordan [facility] HospitalNote Date/TimeMay 2024 2:59[place] [address] Hospitalist Progress Note Signed Patient: Tavo Wallis Jr MR# : [id number] : 1940 Acct:[id number] Age/Sex: 84 / M Adm Date: 5 Loc: Room: [address] [place] [address] Type: ADM IN Attending Dr: Mario Jordan MD Copies to: ~ Date of Service: 07/16/2024 Subjective Subjective Narrative: Patient is comfortably lying in the bed and is on room air. No hematuria seen in urinary bag. Creatinine is 1.15 and downtrending. Exam Physical Exam Vital Signs: Temp Pulse Resp BP Pulse Ox O2 Del Method O2 Flow Rate 98.1 F 78 16 131/82 98 Room Air 2 07/16/24 08:00 07/16/24 08:00 07/16/24 08:00 07/16/24 08:00 07/16/24 08:00 07/16/24 08:00 07/13/24 04:00 Narrative: General: Awake alert, no acute distress HEENT: head atraumatic, normocephalic, moist mucous membranes Neck: supple no masses, no lymphadenopathy CVS: regular rate and rhythm, no murmurs or gallops Respiratory: diminished breath sound with crackles, no wheezing GI: soft, nondistended, nontender, positive bowel sounds with no organomegaly Extremity: moves all extremities, no restrictions of movements, no calf tenderness bilateral 3-4+ pedal edema, with small 3 to 4 cm swelling in the lateral aspect of the mid right leg with erythema and tenderness and fluctuance but not pulsatile Neuro: AOx3, CN II-VII intact. Moves all extremities in all planes of motion. Skin: intact no rashes or lesions Objective Lab Results 07/16/24 05:43 07/16/24 05:43 Microbiology Results Microbiology 07/15/24 12:15 Leg,Right - Abscess Aerobic Culture - Preliminary No Growth 1 Day 07/15/24 12:15 Leg,Right - Abscess Anaerobic Culture - Preliminary No Anaerobes Isolated 1 Day 07/15/24 12:15 Leg,Right - Abscess Gram Stain - Final 07/12/24 15:07 Blood - Left Forearm Blood Culture - Final Enterococcus faecalis Pseudomonas aeruginosa 07/12/24 15:07 Blood - Left Forearm Bacterial ID (NA Multiplex Assay) - Final 07/12/24 16:19 Clean Void Midstream Urine Culture - Final Pseudomonas aeruginosa Enterococcus faecalis Meds Allergies and Active Meds Allergies fentanyl Allergy (Unknown, Verified 07/12/24 15:55) Dizziness, loopy indomethacin (From Indocin) Allergy (Unknown, Verified 07/12/24 15:55) Dizziness zolpidem (From Ambien) Allergy (Unknown, Verified 07/12/24 15:55) Confusion, memory loss Penicillins Allergy (Verified 07/12/24 15:55) Weakness Active Meds: Active Medications Generic Name Dose Route Start Last Admin Trade Name Freq PRN Reason Stop Dose Admin Acetaminophen 500 mg 07/12/24 22:00 07/16/24 09:39 Acetaminophen 500 Mg Tablet PO 07/12/25 21:59 500 mg TID [facility] Administration Acetaminophen 650 mg 07/12/24 17:00 Acetaminophen 325 Mg Tablet PO 07/12/25 16:59 Q6HR PRN Pain Scale 1 - 3 or fever Albuterol/Ipratropium 3 ml 07/12/24 16:57 Ipratropium/Albuterol 0.5-3 Mg 3 Ml Ampul.Neb INHALATION 07/12/25 16:56 Q6HR PRN shortness of breath or wheezing Allopurinol 300 mg 07/13/24 09:00 07/16/24 09:39 Allopurinol 300 Mg Tablet PO 07/13/25 08:59 300 mg DAILY [facility] Administration Apixaban 5 mg 07/15/24 21:00 07/16/24 09:39 Apixaban 5 Mg Tablet PO 07/15/25 20:59 5 mg BID [facility] Administration Atorvastatin Calcium 40 mg 07/13/24 09:00 07/16/24 09:38 Atorvastatin 40 Mg Tablet PO 07/13/25 08:59 40 mg DAILY [facility] Administration Bumetanide 1 mg 07/15/24 08:00 07/16/24 09:39 Bumetanide 1 Mg Tablet PO 07/15/25 07:59 1 mg DAILY@0800 [facility] Administration Cefepime HCl 2 gm in 50 mls @ 12.5 mls/hr 07/13/24 20:00 07/16/24 09:39 Maxipime IV 12.5 mls/hr Q12H [facility] Administration Vancomycin HCl 1 gm in 250 mls @ 250 mls/hr 07/16/24 10:00 Vancomycin IV Q24H [facility] Levothyroxine Sodium 150 mcg 07/13/24 06:30 07/16/24 05:21 Levothyroxine 150 Mcg Tablet PO 07/13/25 06:29 150 mcg DAILY.0630 [facility] Administration Magnesium Oxide 400 mg 07/13/24 09:00 07/16/24 09:38 Magnesium Oxide 400 Mg Tablet PO 07/13/25 08:59 400 mg DAILY [facility] Administration Eszopiclone 3 Mg 3 mg 07/12/24 22:00 07/15/24 22:09 Tablet PO 07/12/25 21:59 3 mg QHS [facility] Administration Pom (Eszopiclone 3 3 mg 07/20/24 22:00 Mg Tablet) PO 07/20/25 21:59 QHS [facility] Oxycodone/Acetaminophen 1 tab 07/12/24 17:00 07/13/24 22:05 Oxycodone/Acetaminophen 5-325 Mg Tablet PO 1 tab Q4H PRN Administration Pain Scale 4 - 7 Polyethylene Glycol 17 gm 07/14/24 10:05 07/15/24 20:11 Polyethylene Glycol 3350 17 Gm Powd.Pack PO 07/14/25 10:04 Not Given BID [facility] Potassium Chloride 20 meq 07/13/24 09:00 07/16/24 09:39 Potassium Chloride Er 20 Meq Tab.Er.Prt PO 07/13/25 08:59 20 meq DAILY [facility] Administration Sennosides 8.8 mg 07/14/24 10:05 07/15/24 20:12 Sennosides Syrup 8.8 Mg/5 Ml Udc PO 07/14/25 10:04 Not Given BID [facility] Sodium Chloride 0 ml 07/12/24 14:41 07/15/24 20:06 Sodium Chloride 0.9 % 10 Ml Syringe IV-PUSH 07/12/25 14:40 10 ml PRN PRN Administration Flush Trazodone HCl 50 mg 07/12/24 16:57 07/14/24 21:14 Trazodone 50 Mg Tablet PO 07/12/25 16:56 50 mg QHS PRN Administration insomnia Vancomycin HCl 1 each 07/12/24 17:05 Vancomycin - Pharmacy Dosing 1 Each Miscell IV ONCE PRN ZZ.Pharmacy Consult Protocol A&P - Hospitalist Assessment/Plan (1) Hematuria: (2) Hypoxia: (3) CHF exacerbation: (4) Sepsis: (5) Hypothyroidism: (6) Hypertension: (7) BPH (benign prostatic hyperplasia): (8) Atrial fibrillation: Plan This is a 83-year-old male with significant past medical history of A-fib, hypothyroidism, hypertension, BPH on chronic Chou since March 2024 exchangingevery month, hyperlipidemia, gout, cardiomyopathy, history of CHF, was [facility] from [facility] for chief concern for hematuria. Patient had appointment with urologist today who exchangehis Chou and patient mentions that he has been bleeding since thenwith minimal urine output. Daughter at bedside. Denies any pain any urgency frequency dysuria or lower abdominal pain. Denies any flank pain. Denies any fever or chills. Patient is on antibiotics for shortness of breath for couple of days. He mentions worsening shortness of breath with cough and some sputum production for 4 to 5 days. In the ED initially he was slightly hypotensive andresolved on its own. Patient got Lasix 40 units and magnesium replacement. Lactate was 2.3. Lab work shows WBC of 6.5, creatinine 1.62, lactate of 2.3, magnesium 1.7, normal liver enzymes, troponin 21, BNP is pending. Urinalysis shows innumerable RBCs and WBC of 10-19. And 1+ bacteria. COVID test negative. Chest x-ray shows minimal hilar congestion no consolidation suggesting pneumonia. Urine culture and blood culture pending. Patient was also started on broad-spectrum antibiotics. Urine culture grew gram-negative bacilli. Finalculture pending. And blood culture grew gram-negative bacilli and Enterococcus faecalis. Previous history of urine culture growing Pseudomonas and Proteus sensitive to cefepime. Daughter bedside also mentions swelling in the right leg suggestive of abscess. General surgery consulted. Patient had I&D and was found to have hematoma. Final culture pending. Plan: - Admitted to regular nursing floor with telemetry - Continue on broad-spectrum antibiotics for concern for pneumonia/UTI/abscess. ID managing antibiotics- has PiCC line ordered - Follow-up sputum culture blood culture and urine culture and MRSA PCR - Urology on consult appreciate recommendation- recommended to discharge on Chou and follow-up with urology. - Continue POA medications-allopurinol, Lipitor, Bumex, magnesium, trazodone, Eliquis - Continue on home diuretic dose and monitor daily weights. - Monitor input and output - Daily weights - Heart healthy diet - PT/OT-residential facility - Full code SCD for DVT prophylaxis Documented By: Mairo Jordan MD 07/16/241454 Signed By: <Electronically signed by Mario Jordan MD> 07/16/[address] [facility] Work Phone: Progress note Author Frankie Reynolds [facility] HospitalNote Date/TimeMay 2024 8:51[place] [address] Infect. Disease Progress Note Signed Patient: Tavo Wallis Jr MR# : [id number] : 1940 Acct:[id number] Age/Sex: 84 / M Adm Date: 5 Loc: 4 Room: 3A1554-7 Type: ADM IN Attending Dr: Mario Jordan MD Copies to: ~ Date of Service: 07/17/2024 Subjective Interval history: Patient without new physical complaints. Did get his PICC line in his right upper extremity yesterday. Continues on vancomycin and cefepime. Exam Physical Exam Vital Signs: Temp Pulse Resp BP Pulse Ox O2 Del Method O2 Flow Rate 97.9 F 73 18 124/69 98 Room Air 2 07/16/24 18:15 07/17/24 07:32 07/17/24 07:32 07/17/24 07:32 07/17/24 07:32 07/17/24 07:45 07/13/24 04:00 Const General: comfortable and no acute distress Orientation: oriented x3 HEENT Head: normal to inspection Ears: hearing grossly normal bilaterally Face and sinus: normal facial exam Mouth: oral mucosae normal Eyes General: appearance normal, both eyes and all related structures Neck Neck: normal visual inspection Chest Chest palpation & inspection: normal inspection of the chest Resp Effort & Inspection: normal respiratory effort Cardio Rate: regular rate Rhythm: regular rhythm GI Inspection: normal to inspection Palpation: soft and nontender Skin Other: Right lower leg with dressing intact. Extrem General: edema Objective Labs CBC/BMP: CBC, BMP 07/17/24 05:57 Corrected WBC 7.1 Uncorrected WBC Count 7.1 RBC 2.88 L Hgb 8.5 L Hct 25.8 L Plt Count 164 Microbiology Microbiology: Microbiology - Results from entire visit 07/15/24 12:15 Leg,Right - Abscess Aerobic Culture - Preliminary No Growth 1 Day 07/15/24 12:15 Leg,Right - Abscess Anaerobic Culture - Preliminary No Anaerobes Isolated 1 Day 07/15/24 12:15 Leg,Right - Abscess Gram Stain - Final 07/12/24 15:07 Blood - Left Forearm Blood Culture - Final Enterococcus faecalis Pseudomonas aeruginosa 07/12/24 15:07 Blood - Left Forearm Bacterial ID (NA Multiplex Assay) - Final 07/12/24 16:19 Clean Void Midstream Urine Culture - Final Pseudomonas aeruginosa Enterococcus faecalis 07/12/24 15:00 Blood - Left Arm Blood Culture - Final Pseudomonas aeruginosa 07/12/24 15:00 Blood - Left Arm Bacterial ID (NA Multiplex Assay) - Final 07/13/24 18:56 Nasal Nasal Screen MRSA/MSSA - Final 07/13/24 17:50 Stool Stool Occult Blood (BELLA) - Final 07/12/24 15:03 Nasopharyngeal SARS-CoV-2, Influenza & RSV (PCR) - Final Allergies and Medications Allergies and Active Meds Allergies fentanyl Allergy (Unknown, Verified 07/12/24 15:55) Dizziness, loopy indomethacin (From Indocin) Allergy (Unknown, Verified 07/12/24 15:55) Dizziness zolpidem (From Ambien) Allergy (Unknown, Verified 07/12/24 15:55) Confusion, memory loss Penicillins Allergy (Verified 07/12/24 15:55) Weakness Active Medications Acetaminophen (Acetaminophen 500 Mg Tablet) 500 mg PO TID [facility] Stop: 07/12/25 21:59 Last Admin: 07/17/24 08:15 Dose: 500 mg Acetaminophen (Acetaminophen 325 Mg Tablet) 650 mg PO Q6HR PRN PRN Reason: Pain Scale 1 - 3 or fever Stop: 07/12/25 16:59 Albuterol/Ipratropium (Ipratropium/Albuterol 0.5-3 Mg 3 Ml Ampul.Neb) 3 ml INHALATION Q6HR PRN PRN Reason: shortness of breath or wheezing Stop: 07/12/25 16:56 Allopurinol (Allopurinol 300 Mg Tablet) 300 mg PO DAILY [facility] Stop: 07/13/25 08:59 Last Admin: 07/17/24 08:15 Dose: 300 mg Apixaban (Apixaban 5 Mg Tablet) 5 mg PO BID [facility] Stop: 07/15/25 20:59 Last Admin: 07/17/24 08:15 Dose: 5 mg Atorvastatin Calcium (Atorvastatin 40 Mg Tablet) 40 mg PO DAILY [facility] Stop: 07/13/25 08:59 Last Admin: 07/17/24 08:15 Dose: 40 mg Bumetanide (Bumetanide 1 Mg Tablet) 1 mg PO DAILY@0800 [facility] Stop: 07/15/25 07:59 Last Admin: 07/17/24 08:15 Dose: 1 mg Cefepime HCl (Maxipime) 2 gm in 50 mls @ 12.5 mls/hr IV Q12H [facility] Last Admin: 07/17/24 08:15 Dose: 12.5 mls/hr Vancomycin HCl (Vancomycin) 1 gm in 250 mls @ 250 mls/hr IV Q24H [facility] Last Infusion: 07/16/24 12:00 Dose: Infused Levothyroxine Sodium (Levothyroxine 150 Mcg Tablet) 150 mcg PO DAILY.0630 [facility] Stop: 07/13/25 06:29 Last Admin: 07/17/24 08:15 Dose: 150 mcg Magnesium Oxide (Magnesium Oxide 400 Mg Tablet) 400 mg PO DAILY [facility] Stop: 07/13/25 08:59 Last Admin: 07/17/24 08:16 Dose: 400 mg Eszopiclone 3 Mg (Tablet) 3 mg PO QHS [facility] Stop: 07/12/25 21:59 Last Admin: 07/16/24 22:10 Dose: 3 mg Pom (Eszopiclone 3 (Mg Tablet)) 3 mg PO QHS [facility] Stop: 07/20/25 21:59 Oxycodone/Acetaminophen (Oxycodone/Acetaminophen 5-325 Mg Tablet) 1 tab PO Q4H PRN PRN Reason: Pain Scale 4 - 7 Last Admin: 07/13/24 22:05 Dose: 1 tab Polyethylene Glycol (Polyethylene Glycol 3350 17 Gm Powd.Pack) 17 gm PO BID [facility] Stop: 07/14/25 10:04 Last Admin: 07/17/24 08:16 Dose: Not Given Potassium Chloride (Potassium Chloride Er 20 Meq Tab.Er.Prt) 20 meq PO DAILY [facility] Stop: 07/13/25 08:59 Last Admin: 07/17/24 08:15 Dose: 20 meq Sennosides (Sennosides Syrup 8.8 Mg/5 Ml Udc) 8.8 mg PO BID [facility] Stop: 07/14/25 10:04 Last Admin: 07/17/24 08:16 Dose: Not Given Sodium Chloride (Sodium Chloride 0.9 % 10 Ml Syringe) 0 ml IV-PUSH PRN PRN PRN Reason: Flush Stop: 07/12/25 14:40 Last Admin: 07/16/24 20:08 Dose: 10 ml Trazodone HCl (Trazodone 50 Mg Tablet) 50 mg PO QHS PRN PRN Reason: insomnia Stop: 07/12/25 16:56 Last Admin: 07/14/24 21:14 Dose: 50 mg Vancomycin HCl (Vancomycin - Pharmacy Dosing 1 Each Miscell) 1 each IV ONCE PRN; Protocol PRN Reason: STEFFEN.Pharmacy Consult A&P - Infectious Disease Assessment/Plan (1) Sepsis: Qualifiers: Sepsis acute organ dysfunction status: without acute organ dysfunction (2) Complicated UTI (urinary tract infection): (3) Bacteremia due to Pseudomonas: (4) Bacteremia due to Enterococcus: (5) Abscess of left leg: Plan I&D of right lower leg found coagulated blood consistent with hematoma. Culturewith no growth. Fingering right lower extremity collection just a clotted hematoma. Remains on vancomycin and cefepime given his positive blood cultures which likely stems from a left-sided kidney infection given hydronephrosis and cystitis due to bladder wall thickening. Favor maintaining both vancomycin and cefepime for 9 more days Documented By: Frankie Reynolds MD 07/17/24 0849 Signed By: <Electronically signed by MD Frankie Reynolds> 07/17/2451 [facility] Work Phone: Reason for referral (narrative)* Consultation (Routine) - AuthorizedSpecialtyDiagnoses / ProceduresReferred By Contact Referred To ContactCardiology Diagnoses Heart failure, NYHA class 2 (Multi) Procedures Follow Up In Cardiology Tavo Mcintyre DO [address] [facility] [address], [place] [address] [place], [place] [id number] Tavo Mcintyre DO [address] [facility], [facility] [address] [place] [address] Referral IDStatusReasonStart DateExpiration DateVisits RequestedVisits [id number]/ [facility] Work Phone: Refcrf for referral (narrative)No reason for referral information availableSt. Francis Hospital [facility]tr Work Phone: Chief Complaint * I am doing pretty good' * TAVO WALLIS is being seen for a 6 [...] * I am doing pretty good' * TAVO WALLIS is being seen for a 6 [...] the same as last office f/u. * TAVO WALLIS is being seen for a 6 [...] f/u: 'seem to be doing fine' * TAVO WALLIS is being seen for follow-up of a hospitalization for dizziness. * Hospital f/u: 'seem to be doing fine' * TAVO WALLIS is being seen for follow-up of a hospitalization for dizziness. * Patient presents to the office ambulatory with wheeled walker and steady gait. Last evaluated in clinic Dr. Mcintyre July 2021. 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 He denies any palpitations or fast heartbeats. * TAVO WALLIS is being seen for an annual [...] Complaint and Reason for Visit Chief Complaint MEDICARE/[facility] Chief Complaint E03.9 I10 I48.91 fallReason for VisitAcute decompensated heart failure Acute exacerbation of chronic low back pain Elevated troponin Fall Hypoxemia Chief Complaint E03.9 I10 I48.91 fallReason for VisitAcute decompensated heart failure Acute exacerbation of chronic low back pain [id number] Acute respiratory failure with hypoxia Altered mental status Anasarca Bladder retention Bradycardia Constipation Difficulty walking Elevated troponin Fall Falls frequently Fever Generalized weakness HFrEF (heart failure with reduced ejection fraction) Hypoxemia Impaired activities of daily living Myxopapillary ependymoma Pleural effusion Sleep apnea Atrial fibrillation Hypertension Chief Complaint E03.9 I10 I48.91 fall Z79.01 I48.20 MEDICARE/gneralized weaknessReason for VisitAcute decompensated heart failure Acute exacerbation of chronic low back pain [id number] Acute respiratory failure with hypoxia Altered mental status Anasarca Bladder retention Bradycardia Constipation Difficulty walking Elevated troponin Fall Falls frequently Fever Generalized weakness HFrEF (heart failure with reduced ejection fraction) Hypoxemia Impaired activities of daily living Myxopapillary ependymoma Pleural effusion Sleep apnea Atrial fibrillation Hypertension Chief Complaint fall Z79.01 I48.20 MEDICARE/gneralized weaknessReason for VisitAcute decompensated heart failure Acute exacerbation of chronic low back pain [id number] Acute respiratory failure with hypoxia Altered mental [...] I50.9 E78 .5 E03.9 E78.5 Z12.5 6 monthReason for VisitHyperlipidemia Hypertension Hypothyroidism Screening for prostate cancer Chief Complaint left lower leg sore/ f/u neurosurgery appt Reason for Visit Cellulitis and absce ss of left leg Lumbar spondylolysis Muscle pareses Venous insufficiency Chief Complaint Admit Date left lower leg sore/f/u neurosurgery rowena t December 27, 2023 12:31pm L03.16 I10 I50.9 D43.2 G72.89 G47.30 I87 .2 L02.416 December 30, 2023 7:18am surgical clearance February 13, 2024 8 :48am I48.91 I11.0 March 02, 2024 11:00am Lethargic March 10, 2024 11 :26am Reason for Visit Admit Date Cellulitis and abscess of left leg Octob er 2023 12:31pm Lumbar spondylolysis December 27, 2023 12:31pm Muscle pareses December 27, 2023 1 2:31pm Venous insufficiency December 27, 2023 12:31pm Atrial fibrillation February 13, 2024 8 :48am Lumbar spondylolysis February 13, 2024 8:48am Pre-operative clearance February 12 8:48am LIS (acute kidney injury) March 10 025 11:26am Reason for Visit Admit Date Cellulitis and abscess of left leg Octob er 2023 12:31pm Lumbar spondylolysis December 27, 2023 12:31pm Muscle pareses December 27, 2023 1 2:31pm Venous insufficiency December 27, 2023 12:31pm Atrial fibrillation February 13, 2024 8 :48am Lumbar spondylolysis February 13, 2024 8:48am Pre-operative clearance February 12 8:48am LIS (acute kidney injury) March 10 025 11:26am COVID-19 March 10, 2024 11 :26am Fatigue March 10, 2024 11 :26am Chief Complaint Admit Date surgical clearance February 13, 2024 8 :48am I48.91 I11.0 March 02, 2024 11:00am Lethargic March 10, 2024 11 :26am Z47.89 April 03, 2024 3 :19pm Reason for Visit Admit Date Atrial fibrillation February 13, 2024 8 :48am Lumbar spondylolysis February 13, 2024 8:48am Pre-operative clearance February 12 8:48am LIS (acute kidney injury) March 10 11:26am COVID-19 March 10, 2024 11 :26am Fatigue March 10, 2024 11 :26am Chief Complaint Admit Date surgical clearance February 13, 2024 8 :48am I48.91 I11.0 March 02, 2024 11:00am Lethargic March 10, 2024 11 :26am Z47.89 April 03, 2024 3 :19pm 148.91 N18.3 April 23, 2024 10:53am Chief Complaint Admit Date surgical clearance February 13, 2024 8 :48am I48.91 I11.0 March 02, 2024 11:00am Lethargic March 10, 2024 11 :26am Z47.89 April 03, 2024 3 :19pm 148.91 N18.3 April 23, 2024 10:53am i11.0 i50.33 ga3.41 i48.91 r33.9 z48.811 April 30, 2024 8:20am Chief Complaint Admit Date surgical clearance February 13, 2024 8 :48am I48.91 I11.0 March 02, 2024 11:00am Lethargic March 10, 2024 11 :26am Z47.89 April 03, 2024 3 :19pm 148.91 N18.3 April 23, 2024 10:53am i11.0 i50.33 ga3.41 i48.91 r33.9 z48.811 April 30, 2024 8:20am R33.9 May 07, 2024 8:58 am Chief Complaint Admit Date I48.91 I11.0 March 02, 2024 11:00am Lethargic March 10, 2024 11 :26am Z47.89 April 03, 2024 3 :19pm 148.91 N18.3 April 23, 2024 10:53am i11.0 i50.33 ga3.41 i48.91 r33.9 z48.811 April 30, 2024 8:20am R33.9 May 07, 2024 8:58 am Reason for Visit Admit Date LIS (acute kidney injury) March 10 11:26am COVID-19 March 10, 2024 11 :26am Fatigue March 10, 2024 11 :26am Chief Complaint Admit Date I48.91 I11.0 March 02, 2024 11:00am Lethargic March 10, 2024 11 :26am Z47.89 April 03, 2024 3 :19pm 148.91 N18.3 April 23, 2024 10:53am i11.0 i50.33 ga3.41 i48.91 r33.9 z48.811 April 30, 2024 8:20am R33.9 May 07, 2024 8:58 am I48.91, N18.3, I50.33, G93.41, M48.062 M arch 2024 10:45am I48.91,I11.0,I50.33,M48.062,Z48.811 Isaiah h 2024 7:13am Chief Complaint Admit Date I48.91 I11.0 March 02, 2024 11:00am Lethargic March 10, 2024 11 :26am Z47.89 April 03, 2024 3 :19pm 148.91 N18.3 April 23, 2024 10:53am i11.0 i50.33 ga3.41 i48.91 r33.9 z48.811 April 30, 2024 8:20am R33.9 May 07, 2024 8:58 am I48.91, N18.3, I50.33, G93.41, M48.062 M arch 2024 10:45am I48.91,I11.0,I50.33,M48.062,Z48.811 Isaiah h 2024 7:13am Z48.811 111.0 May 28, 2024 8:2 5am Chief Complaint Admit Date Lethargic March 10, 2024 11 :26am Z47.89 April 03, 2024 3 :19pm 148.91 N18.3 April 23, 2024 10:53am i11.0 i50.33 ga3.41 i48.91 r33.9 z48.811 April 30, 2024 8:20am R33.9 May 07, 2024 8:58 am I48.91, N18.3, I50.33, G93.41, M48.062 M arch 2024 10:45am I48.91,I11.0,I50.33,M48.062,Z48.811 Isaiah h 2024 7:13am Z48.811 111.0 May 28, 2024 8:2 5am Chief Complaint Admit Date Lethargic March 10, 2024 11 :26am Z47.89 April 03, 2024 3 :19pm 148.91 N18.3 April 23, 2024 10:53am i11.0 i50.33 ga3.41 i48.91 r33.9 z48.811 April 30, 2024 8:20am R33.9 May 07, 2024 8:58 am I48.91, N18.3, I50.33, G93.41, M48.062 M arch 2024 10:45am I48.91,I11.0,I50.33,M48.062,Z48.811 Isaiah h 2024 7:13am Z48.811 111.0 May 28, 2024 8:2 5am I48.91,M48.062,Z48.811,G93.41,M54.50 Apr az 2024 9:25am Chief Complaint Admit Date Lethargic March 10, 2024 11 :26am Z47.89 April 03, 2024 3 :19pm 148.91 N18.3 April 23, 2024 10:53am i11.0 i50.33 ga3.41 i48.91 r33.9 z48.811 April 30, 2024 8:20am R33.9 May 07, 2024 8:58 am I48.91, N18.3, I50.33, G93.41, M48.062 M arch 2024 10:45am I48.91,I11.0,I50.33,M48.062,Z48.811 [facility] h 2024 7:13am Z48.811 111.0 May 28, 2024 8:2 5am I48.91,M48.062,Z48.811,G93.41,M54.50 Jun 9:25am I48.2, N18.3, I11.0, M48.062 June 11, 2024 7:09am Chief Complaint Admit Date Z47April 03, 2024 3 :19pm 148.91 N18.3 April 23, 2024 10:53am i11.0 i50.33 ga3.41 i48.91 r33.9 z48.811 April 30, 2024 8:20am R33.9 May 07, 2024 8:58 am I48.91, N18.3, I50.33, G93.41, M48.062 M arch 2024 10:45am I48.91,I11.0,I50.33,M48.062,Z48.811 [facility] h 2024 7:13am Z48.811 111.0 May 28, 2024 8:2 5am I48.91,M48.062,Z48.811,G93.41,M54.50 Jun 9:25am I48.2, N18.3, I11.0, M48.062 June 11, 2024 7:09am R30.0, R31.0, R53.82 June 12, 2024 4:3 0am Chief Complaint Admit Date Z47.89 April 03, 2024 3 :19pm 148.91 N18.3 April 23, 2024 10:53am i11.0 i50.33 ga3.41 i48.91 r33.9 z48.811 April 30, 2024 8:20am R33.9 May 07, 2024 8:58 am I48.91, N18.3, I50.33, G93.41, M48.062 M arch 2024 10:45am I48.91,I11.0,I50.33,M48.062,Z48.811 Isaiah h 2024 7:13am Z48.811 111.0 May 28, 2024 8:2 5am I48.91,M48.062,Z48.811,G93.41,M54.50 Jun 9:25am I48.2, N18.3, I11.0, M48.062 June 11, 2024 7:09am R30.0, R31.0, R53.82 June 12, 2024 4:3 0am I48.2, Z48.811, M48.062 June 13, 2024 9:36am Chief Complaint Admit Date Z47.89 April 03, 2024 3 :19pm 148.91 N18.3 April 23, 2024 10:53am i11.0 i50.33 ga3.41 i48.91 r33.9 z48.811 April 30, 2024 8:20am R33.9 May 07, 2024 8:58 am I48.91, N18.3, I50.33, G93.41, M48.062 arch 2024 10:45am I48.91,I11.0,I50.33,M48.062,Z48.811 Isaiah h 2024 7:13am Z48.811 111.0 May 28, 2024 8:2 5am I48.91,M48.062,Z48.811,G93.41,M54.50 Jun 9:25am I48.2, N18.3, I11.0, M48.062 June 11, 2024 7:09am R30.0, R31.0, R53.82 June 12, 2024 4:3 0am I48.2, Z48.811, M48.062 June 13, 2024 9:36am I48.91, I11.0, T81.31XA June 18, 2024 8:37am Chief Complaint Admit Date 148.91 N18.3 April 23, 2024 10:53am i11.0 i50.33 ga3.41 i48.91 r33.9 z48.811 April 30, 2024 8:20am R33.9 May 07, 2024 8:58 am I48.91, N18.3, I50.33, G93.41, M48.062 M arch 2024 10:45am I48.91,I11.0,I50.33,M48.062,Z48.811 Isaiah h 2024 7:13am Z48.811 111.0 May 28, 2024 8:2 5am I48.91,M48.062,Z48.811,G93.41,M54.50 Jun 9:25am I48.2, N18.3, I11.0, M48.062 June 11, 2024 7:09am R30.0, R31.0, R53.82 June 12, 2024 4:3 0am I48.2, Z48.811, M48.062 June 13, 2024 9:36am I48.91, I11.0, T81.31XA June 18, 2024 8:37am m48.062 z48.811 i96.01 m62.81 m43.28 Jun 7:00am Chief Complaint Admit Date 148.91 N18.3 April 23, 2024 10:53am i11.0 i50.33 ga3.41 i48.91 r33.9 z48.811 April 30, 2024 8:20am R33.9 May 07, 2024 8:58 am I48.91, N18.3, I50.33, G93.41, M48.062 M arch 2024 10:45am I48.91,I11.0,I50.33,M48.062,Z48.811 Isaiah h 2024 7:13am Z48.811 111.0 May 28, 2024 8:2 5am I48.91,M48.062,Z48.811,G93.41,M54.50 Jun 9:25am I48.2, N18.3, I11.0, M48.062 June 11, 2024 7:09am R30.0, R31.0, R53.82 June 12, 2024 4:3 0am I48.2, Z48.811, M48.062 June 13, 2024 9:36am I48.91, I11.0, T81.31XA June 18, 2024 8:37am m48.062 z48.811 i96.01 m62.81 m43.28 Jun 7:00am Z48.811 G93.41 M62.81 M48.062 June 8:56am Chief Complaint Admit Date 148.91 N18.3 April 23, 2024 10:53am i11.0 i50.33 ga3.41 i48.91 r33.9 z48.811 April 30, 2024 8:20am R33.9 May 07, 2024 8:58 am I48.91, N18.3, I50.33, G93.41, M48.[address] [facility] 2024 10:45am I48.91,I11.0,I50.33,M48.062,Z48.811 Isaiah h 2024 7:13am Z48.811 111.0 May 28, 2024 8:2 5am I48.91,M48.062,Z48.811,G93.41,M54.50 Jun 9:25am I48.2, N18.3, I11.0, M48.062 June 11, 2024 7:09am R30.0, R31.0, R53.82 June 12, 2024 4:3 0am I48.2, Z48.811, M48.062 June 13, 2024 9:36am I48.91, I11.0, T81.31XA June 18, 2024 8:37am m48.062 z48.811 i96.01 m62.81 m43.28 Apr 2024 7:00am Z48.811 G93.41 M62.81 M48.062 June 8:56am M48.062 Z48.811 M62.81 I50.33 G93.41 July 09, 2024 9:10am cath issues July 12, 2024 5:00pm Reason for Visit Admit Date Atrial fibrillation July 12, 2024 5:00pm BPH (benign prostatic hyperplasia) July 122024 5:00pm CHF exacerbation July 12, 2024 5:00pm Hematuria July 12, 2024 5:00pm Hypertension July 12, 2024 5:00pm Hypothyroidism July 12, 2024 5:00pm Hypoxia July 12, 2024 5:00pm Sepsis July 12, 2024 5:00pm Chief Complaint Admit Date 148.91 N18.3 April 23, 2024 10:53am i11.0 i50.33 ga3.41 i48.91 r33.9 z48.811 April 30, 2024 8:20am R33.9 May 07, 2024 8:58 am I48.91, N18.3, I50.33, G93.41, M48.062 M [facility] 2024 10:45am I48.91,I11.0,I50.33,M48.062,Z48.811 [facility] 2024 7:13am Z48.811 111.0 May 28, 2024 8:2 5am I48.91,M48.062,Z48.811,G93.41,M54.50 Apr 2024 9:25am I48.2, N18.3, I11.0, M48.062 June 11, 2024 7:09am R30.0, R31.0, R53.82 June 12, 2024 4:3 0am I48.2, Z48.811, M48.062 June 13, 2024 9:36am I48.91, I11.0, T81.31XA June 18, 2024 8:37am m48.062 z48.811 i96.01 m62.81 m43.28 Jun 7:00am Z48.811 G93.41 M62.81 M48.062 June 8:56am M48.062 Z48.811 M62.81 I50.33 G93.41 July 09, 2024 9:10am cath issues July 12, 2024 5:00pm cath issues 2024 9:49a m Reason for Visit Admit Date Abscess July 12, 2024 5:00pm Abscess of left leg July 12, 2024 5:00pm Atrial fibrillation July 12, 2024 5:00pm Bacteremia due to Enterococcus July 12, 2024 5:00pm Bacteremia due to Pseudomonas July 12, 2 025 5:00pm BPH (benign prostatic hyperplasia) July 122024 5:00pm CHF exacerbation July 12, 2024 5:00pm Complicated UTI (urinary tract infection ) July 12, 2024 5:00pm Hematuria July 12, 2024 5:00pm Hypertension July 12, 2024 5:00pm Hypothyroidism July 12, 2024 5:00pm Hypoxia July 12, 2024 5:00pm Sepsis July 12, 2024 5:00pm Chief Complaint Admit Date I48.91, I11.0, T81.31XA June 18, 2024 8:37am m48.062 z48.811 i96.01 m62.81 m43.28 Jun 7:00am Z48.811 G93.41 M62.81 M48.062 June 8:56am M48.062 Z48.811 M62.81 I50.33 G93.41 July 09, 2024 9:10am cath issues July 12, 2024 5:00pm cath issues 2024 9:49a m Chronic Kidney Disease Stage III July 6:17am Atrial Fibrillation August 27, 2024 11:5 6am Urine drop-off September 14, 2024 10:5 0am Chief Complaint Admit Date m48.062 z48.811 i96.01 m62.81 m43.28 Apr 2024 7:00am Z48.811 G93.41 M62.81 M48.062 June 8:56am M48.062 Z48.811 M62.81 I50.33 G93.41 July 09, 2024 9:10am cath issues July 12, 2024 5:00pm cath issues 2024 9:49a m Chronic Kidney Disease Stage III July 6:17am Atrial Fibrillation August 27, 2024 11:5 6am Urine drop-off September 14, 2024 10:5 0am lumbar pain September 18, 2024 3:12 pm Chief Complaint Admit Date Z48.811 G93.41 M62.81 M48.062 June 8:56am M48.062 Z48.811 M62.81 I50.33 G93.41 July 09, 2024 9:10am cath issues July 12, 2024 5:00pm cath issues 2024 9:49a m Chronic Kidney Disease Stage III July 6:17am Atrial Fibrillation August 27, 2024 11:5 6am Urine drop-off September 14, 2024 10:5 0am lumbar pain September 18, 2024 3:12 pm recent uti, afib, chronic chou September 12:45pm Reason for Visit Admit Date Abscess July 12, 2024 5:00pm Abscess of left leg July 12, 2024 5:00pm Atrial fibrillation July 12, 2024 5:00pm Bacteremia due to Enterococcus July 12, 2024 5:00pm Bacteremia due to Pseudomonas July 12, 2 025 5:00pm BPH (benign prostatic hyperplasia) July 122024 5:00pm CHF exacerbation July 12, 2024 5:00pm Complicated UTI (urinary tract infection ) July 12, 2024 5:00pm Hematuria July 12, 2024 5:00pm Hypertension July 12, 2024 5:00pm Hypothyroidism July 12, 2024 5:00pm Hypoxia July 12, 2024 5:00pm Sepsis July 12, 2024 5:00pm Hx of decompressive lumbar laminectomy J scout 2024 3:12pm Neurogenic claudication due to lumbar sp inal stenosis September 18, 2024 3:12pm Radicular low back pain September 18, 2024 3:12pm Severe back pain September 18, 2024 3:12 pm Chief Complaint Admit Date M48.062 Z48.811 M62.81 I50.33 G93.41 July 09, 2024 9:10am cath issues July 12, 2024 5:00pm cath issues 2024 9:49a m Chronic Kidney Disease Stage III July 6:17am Atrial Fibrillation August 27, 2024 11:5 6am Urine drop-off September 14, 2024 10:5 0am lumbar pain September 18, 2024 3:12 pm recent uti, afib, chronic chou September 12:45pm Ref: Dr. Ga - UTI October 04, 2024 1:51 pm Reason for Visit Admit Date Abscess July 12, 2024 5:00pm Abscess of left leg July 12, 2024 5:00pm Atrial fibrillation July 12, 2024 5:00pm Bacteremia due to Enterococcus July 12, 2024 5:00pm Bacteremia due to Pseudomonas July 12, 2 025 5:00pm BPH (benign prostatic hyperplasia) July 122024 5:00pm CHF exacerbation July 12, 2024 5:00pm Complicated UTI (urinary tract infection ) July 12, 2024 5:00pm Hematuria July 12, 2024 5:00pm Hypertension July 12, 2024 5:00pm Hypothyroidism July 12, 2024 5:00pm Hypoxia July 12, 2024 5:00pm Sepsis July 12, 2024 5:00pm Hx of decompressive lumbar laminectomy J scout 2024 3:12pm Neurogenic claudication due to lumbar sp inal stenosis September 18, 2024 3:12pm Radicular low back pain September 18, 2024 3:12pm Severe back pain September 18, 2024 3:12 pm Catheter-associated urinary tract infect ion October 04, 2024 1:51pm Chief Complaint Admit Date M48.062 Z48.811 M62.81 I50.33 G93.41 July 09, 2024 9:10am cath issues July 12, 2024 5:00pm cath issues 2024 9:49a m Chronic Kidney Disease Stage III July 6:17am Atrial Fibrillation August 27, 2024 11:5 6am Urine drop-off September 14, 2024 10:5 0am lumbar pain September 18, 2024 3:12 pm recent uti, afib, chronic chou September 12:45pm Ref: Dr. Ga - UTI October 04, 2024 1:51 pm Fall October 05, 2024 9:1 3pm Reason for Visit Admit Date Abscess July 12, 2024 5:00pm Abscess of left leg July 12, 2024 5:00pm Atrial fibrillation July 12, 2024 5:00pm Bacteremia due to Enterococcus July 12, 2024 5:00pm Bacteremia due to Pseudomonas July 12, 025 5:00pm BPH (benign prostatic hyperplasia) July 122024 5:00pm CHF exacerbation July 12, 2024 5:00pm Complicated UTI (urinary tract infection ) July 12, 2024 5:00pm Hematuria July 12, 2024 5:00pm Hypertension July 12, 2024 5:00pm Hypothyroidism July 12, 2024 5:00pm Hypoxia July 12, 2024 5:00pm Sepsis July 12, 2024 5:00pm Hx of decompressive lumbar laminectomy J scout 2024 3:12pm Neurogenic claudication due to lumbar sp inal stenosis September 18, 2024 3:12pm Radicular low back pain September 18, 2024 3:12pm Severe back pain September 18, 2024 3:12 pm Catheter-associated urinary tract infect ion October 04, 2024 1:51pm Abrasion of arm, left October 05, 2024 9 :13pm Fall October 05, 2024 9:1 3pm Intracranial hemorrhage October 05, 2024 9:13pm Chief Complaint Admit Date cath issues July 12, 2024 5:00pm cath issues 2024 9:49a m Chronic Kidney Disease Stage III July 6:17am Atrial Fibrillation August 27, 2024 11:5 6am Urine drop-off September 14, 2024 10:5 0am lumbar pain September 18, 2024 3:12 pm recent uti, afib, chronic chou September 12:45pm Ref: Dr. Daily CALABRESE October 04, 2024 1:51 pm Fall October 05, 2024 9:1 3pm Fall October 07, 2024 7:0 5am Reason for Visit Admit Date Abscess July 12, 2024 5:00pm Abscess of left leg July 12, 2024 5:00pm Atrial fibrillation July 12, 2024 5:00pm Bacteremia due to Enterococcus July 12, 2024 5:00pm Bacteremia due to Pseudomonas July 12, 2 025 5:00pm BPH (benign prostatic hyperplasia) July 122024 5:00pm CHF exacerbation July 12, 2024 5:00pm Complicated UTI (urinary tract infection ) July 12, 2024 5:00pm Hematuria July 12, 2024 5:00pm Hypertension July 12, 2024 5:00pm Hypothyroidism July 12, 2024 5:00pm Hypoxia July 12, 2024 5:00pm Sepsis July 12, 2024 5:00pm Hx of decompressive lumbar laminectomy J scout 2024 3:12pm Neurogenic claudication due to lumbar sp inal stenosis September 18, 2024 3:12pm Radicular low back pain September 18, 2024 3:12pm Severe back pain September 18, 2024 3:12 pm Catheter-associated urinary tract infect ion October 04, 2024 1:51pm Abrasion of arm, left October 07, 2024 7 :05am Catheter-associated urinary tract infect ion October 07, 2024 7:05am Fall October 07, 2024 7:0 5am Fever October 07, 2024 7:0 5am Intracranial hemorrhage October 07, 2024 7:05am Chief Complaint Admit Date Atrial Fibrillation August 27, 2024 11:5 6am Urine drop-off September 14, 2024 10:5 0am lumbar pain September 18, 2024 3:12 pm recent uti, afib, chronic chou September 12:45pm Ref: Dr. Daily CALABRESE October 04, 2024 1:51 pm Fall October 05, 2024 9:1 3pm Fall October 07, 2024 7:0 5am M54.10 M54.9 M48.062 October 31, 2024 1 0:52am I62.9 October 31, 2024 11 :01am Reason for Visit Admit Date Hx of decompressive lumbar laminectomy J scout 2024 3:12pm Neurogenic claudication due to lumbar sp inal stenosis September 18, 2024 3:12pm Radicular low back pain September 18, 2024 3:12pm Severe back pain September 18, 2024 3:12 pm Catheter-associated urinary tract infect ion October 04, 2024 1:51pm Catheter-associated urinary tract infect ion October 07, 2024 7:05am Intracranial hemorrhage October 07, 2024 7:05am Abrasion of arm, left October 07, 2024 7 :05am Fall October 07, 2024 7:0 5am Fever October 07, 2024 7:0 5am Chief Complaint Admit Date Atrial Fibrillation August 27, 2024 11:5 6am Urine drop-off September 14, 2024 10:5 0am lumbar pain September 18, 2024 3:12 pm recent uti, afib, chronic chou September 12:45pm Ref: Dr. Daily Perez UTI October 04, 2024 1:51 pm Fall October 05, 2024 9:1 3pm Fall October 07, 2024 7:0 5am M54.10 M54.9 M48.062 October 31, 2024 1 0:52am I62.9 October 31, 2024 11 :01am hospital f/u - subdural hematoma [facility] 2024 9:43am Chief Complaint Admit Date Urine drop-off September 14, 2024 10:5 0am lumbar pain September 18, 2024 3:12 pm recent uti, afib, chronic chou September 12:45pm Ref: Dr. Daily Perez UTI October 04, 2024 1:51 pm Fall October 05, 2024 9:1 3pm fallOctober 07, 2024 7:0 5am I62.9 October 31, 2024 11 :01am hospital f/u - subdural hematoma [facility] 2024 9:43am M81.0 November 29, 2024 11:23am Reason for Visit Admit Date Hx of decompressive lumbar laminectomy J scout 2024 3:12pm Neurogenic claudication due to lumbar sp inal stenosis September 18, 2024 3:12pm Radicular low back pain September 18, 2024 3:12pm Severe back pain September 18, 2024 3:12 pm Catheter-associated urinary tract infect ion October 04, [...] Severe back pain November 06, 2024 9:43am Chief Complaint Admit Date Urine drop-off September 14, 2024 10:5 0am lumbar pain September 18, 2024 3:12 pm recent uti, afib, chronic chou September 12:45pm Ref: Dr. Daily CALABRESE October 04, 2024 1:51 pm Fall October 05, 2024 9:1 3pm fallOctober 07, 2024 7:0 5am I62.9 October 31, 2024 11 :01am hospital f/u - subdural hematoma [facility] 2024 9:43am M81.0 November 29, 2024 11:23am S32.010A M54.9 M48.062 R29.898 December 04, 2024 9:41am Chief Complaint Admit Date Urine drop-off September 14, 2024 10:5 0am lumbar pain September 18, 2024 3:12 pm recent uti, afib, chronic chou September 12:45pm Ref: Dr. Daily CALABRESE October 04, 2024 1:51 pm Fall October 06, 2024 9:1 3pm Fall October 07, 2024 7:0 5am I62.9 October 31, 2024 11 :01am hospital f/u - subdural hematoma [facility] 2024 9:43am M81.0 November 29, 2024 11:23am S32.010A M54.9 M48.062 R29.898 December 04, 2024 9:41am fall December 12, 2024 2: 39pm Reason for Visit Admit Date Hx of decompressive lumbar laminectomy J scout 2024 3:12pm Neurogenic claudication due to lumbar sp inal stenosis September 18, 2024 3:12pm Radicular low back pain September 18, 2024 3:12pm Severe back pain September 18, 2024 3:12 pm Catheter-associated urinary tract infect ion October 04, 2024 1:51pm Catheter-associated urinary tract infect ion October 07, 2024 7:05am Intracranial hemorrhage October 07, 2024 7:05am Abrasion of arm, left October 07, 2024 7 :05am Fall October 07, 2024 7:0 5am Fever October 07, 2024 7:0 5am Compression fracture of L1 lumbar verteb ra November 06, 2024 9:43am Hx of decompressive lumbar laminectomy S epteer 2024 9:43am Intracranial hemorrhage November 06 9:43am Radicular low back pain November 06 9:43am Severe back pain November 06, 2024 9:43am Atrial fibrillation with RVR December 2:39pm Chief Complaint Admit Date recent uti, afib, chronic chou September 12:45pm Ref: Dr. Ga - UTI October 04, 2024 1:51 pm fallOctober 06, 2024 9:1 3pm Fall October 07, [...] 9:43am Hx of decompressive lumbar laminectomy S 2024 9:43am Intracranial hemorrhage November 06 9:43am Radicular low back pain November 06 9:43am Severe back pain November 06, 2024 9:43am Atrial fibrillation with RVR December 2:39pm Falls December 12, 2024 2: 39pm Pressure ulcer of coccygeal region, stag e December 12, 2024 2:39pm Stage III pressure ulcer of right heel O ctober 2024 2:39pm Chief Complaint Admit Date Ref: Dr. Ga - UTI October 04, 2024 1:51 pm [...] 9:43am Hx of decompressive lumbar laminectomy S 2024 9:43am Intracranial hemorrhage November 06 9:43am Radicular low back pain November 06 9:43am Severe back pain November 06, 2024 9:43am Falls December 12, 2024 2: 39pm Pressure ulcer of coccygeal region, stag e 2 December 12, 2024 2:39pm Stage III pressure ulcer of right heel O ctober 2024 2:39pm Atrial fibrillation with RVR December 2:39pm Chief Complaint Admit Date Ref: Dr. Ga - UTI October 04, 2024 1:51 pm Fall October 06, 2024 9:1 3pm Fall October 07, 2024 7:0 5am I62.9 October 31, 2024 11 :01am hospital f/u - subdural hematoma Septemb 2024 9:43am M81.0 November 29, 2024 11:23am S32.010A M54.9 M48.062 R29.898 December 04, 2024 9:41am fall December 12, 2024 2: 39pm Unknown December 27, 2024 9 :51pm Unknown December 30, 2024 4 :45pm Family History Relationship Condition Age at Onset Recorded Date/T jc mother Alzheimer's disease Unknown History of coronary artery bypass surgeryUnknownCoronary artery diseaseUnknown Myocardial infarctionUnknownbrotherMyocardial infarctionUnknownfatherHepatic cirrhosisUnknownsisterMalignant neoplasmUnknownbrotherHeart diseaseUnknownfather DeceasedUnknownHepatic cirrhosisUnknowngrandparentDeceasedUnknownmotherDeceased UnknownHypertensionUnknownHeart diseaseUnknownmotherHeart diseaseUnknownson Malignant neoplasmUnknownNo Family History Records Found Relationship Condition Age at Onset Recorded Date/T jc Not Specified Alzheimer's disease Unknown History of coronary artery bypass surgeryUnknownCoronary artery diseaseUnknown Myocardial infarctionUnknownbrotherMyocardial infarctionUnknownfatherHepatic cirrhosisUnknownsisterMalignant neoplasmUnknown Advance Directives No Advanced Directives Records Found Advance Directive Response Recorded Date/ Time Advance Directives No January 07, 2017 10:09am Advance Directive Response Recorded Date/ Time Advance Directives No January 07, 2017 9:09am Advance Directive Response Recorded Date/ Time Advance Directives No April 05, 2023 4:20pm Date ActivatedDate YidopogumlgTtechcjq59/17/2024 7:35 AM Advance Directive Response Recorded Date/ Time Advance Directives No April 05, 2023 3:20pm Summary Purpose Additional Source Comments REASON FOR VISIT (unrecogniz ed section and content) ReasonCommentsAnnual Zjtv9glUlghmzXdvnqlgiAhn-iu ClearanceLumbar fusionSpecialty Diagnoses / ProceduresReferred By ContactReferred To Contact Diagnoses Preop cardiovascular exam Procedures ECG 12 Lead Tavo Mcintyre DO [address] [facility] [address] [place] [address] Phone: tel: fax: Referral IDStatusReasonStart DateExpiration DateVisits RequestedVisits [id number] / Procedures Referred By ContactReferred To Contact Diagnoses Degeneration of intervertebral disc of lumbar region, unspecified whether pain present Degeneration of intervertebral disc of lumbar region, unspecified whether pain present [M51.369] Procedures SD ARTHRODESIS POSTERIOR/PSTLAT TQ 1NTRSPC LUMBAR SD ARTHRODESIS PST/PSTLAT TQ 1NTRSPC EA ADDL NTRSPC SD POTTS FACETECTOMY & FORAMOTOMY 1 VRT SGM LUMBAR SD POTTS FACETECTOMY&FORAMOT 1 VRT SGM EA ADDL SGM SD AUTOGRAFT SPINE SURGERY LOCAL FROM SAME INCISION L2-5 Decompression and Non Instrumented Fusion L2-5 Decompression and Non Instrumented Fusion L2-5 Decompression and Non Instrumented Fusion L2-5 Decompression and Non Instrumented Fusion L2-5 Decompression and Non Instrumented Fusion Randi Burris MD [address] [place] [address] [place] [address] [facility] [id number] [place] [address] Referral IDStatusReasonStart DateExpiration DateVisits RequestedVisits [id number] PatientDebridement of Nail Care Teams (unrecognized sec tion and content) Team Status: Active Member Role Status Dates Bhupinder Mcintyre DO Specialist Active Team Status: Active Member Role Status Dates Opal Ga DO Primary Care Provider Active Sta rt: April 13, 2024 Ricky Sorto MDAttending ProviderActiveStart: April 13, 2024 Team Status: Active Member Role Status Dates Cristhian Ball , DO Attending Provider Active Sta rt: April 13, 2024 End: April 15, 2024Ricky Sorto , MDReferring ProviderActiveStart: April 13, 2024 End: April 15, 2024 Team Status: Active Member Role Status Wil Ga DO Primary Care Provider Active Sta rt: April 14, 2024 Joy Rosemary ProviderActiveStart: April 14, 2024 Team Status: Inactive Member Role Status Dates Sandip Aguirre , DO Attending Provider Active St art: April 23, 2024 End: April 23, 2024 Team Status: Inactive Member Role Status Dates Sandip Aguirre , DO Attending Provider Active Start: April 30, 2024 End: April 30, 2024 Team Status: Inactive Member Role Status Wil Aguirre , DO Attending Provider Active St art: May 07, 2024 End: May 07, 2024 Team Status: Inactive Member Role Status Dates Sandip Aguirre , DO Attending Provider Active Start: May 14, 2024 End: May 14, 2024 Team Status: Inactive Member Role Status Dates Sandip Aguirre , DO Attending Provider Active Start: May 21, 2024 End: May 21, 2024 Team Status: Inactive Member Role Status Wil Aguirre , DO Attending Provider Active St art: May 28, 2024 End: May 28, 2024 Team Status: Inactive Member Role Status Wil Aguirre , DO Attending Provider Active St art: June 06, 2024 End: June 06, 2024 Team Status: Inactive Member Role Status Dates Sandip Aguirre , DO Attending Provider Active Start: June 11, 2024 End: June 11, 2024 Team Status: Inactive Member Role Status Wil Aguirre , DO Attending Provider Active St art: June 12, 2024 End: June 12, 2024 Team Status: Inactive Member Role Status Wil Aguirre , DO Attending Provider Active Start: June 13, 2024 End: June 13, 2024 Team Status: Inactive Member Role Status Dates Sandip R Ramona , DO Attending Provider Active Start: June 18, 2024 End: June 18, 2024 Team Status: Inactive Member Role Status Dates Sandip Aguirre , DO Attending Provider Active Start: June 25, 2024 End: June 25, 2024 Team Status: Inactive Member Role Status Dates Sandip Aguirre DO Attending Provider Active Start: July 02, 2024 End: July 02, 2024 Team Status: Inactive Member Role Status Dates Opal Ga DO Primary Care Provide r, Attending Provider Active Start: February 13, 2024 End: February 13, 2024 Team Status: Active Member Role Status Dates Opal Ga DO Primary Care Provider Active Sta rt: February 14, 2024 Selvon F Lester , MDAttending ProviderActiveStart: February 14, 2024 Team Status: Inactive Member Role Status Dates Sandip Aguirre , DO Attending Provider Active Start: March 02, 2024 End: March 02, 2024 Team Status: Inactive Member Role Status Dates Marcos Martin DO Emergency Provider Active Sta rt: March 10, 2024 End: March 15ryamadou Ga DOPrimary Care ProviderActiveStart: March 10, 2024 End: March 15ndrekatja Amy , MDAdmit ProviderActiveStart: March 10, 2024 End: March 15, 2024Rahusharon Knight , MDAttending ProviderActiveStart: March 10, 2024 End: March 15, 2024 Team Status: Inactive Member Role Status Dates Opal Ga DO Primary Care Provider Active Sta rt: April 03, 2024 End: April 03, 2024Selvon F Lester , MDAttending ProviderActiveStart: April 03, 2024 End: April 03, 2024 Team Status: Active Member Role Status Dates Opal Ga DO Primary Care Provider Active Team Status: Inactive Member Role Status Dates Opal Ga DO Primary Care Provider, Attending Provi percy Active Team Status: Inactive Member Role Status Dates Opal Ga DO Primary Care Provider Active Natacha Rodarte SENIOR ACCOUNTING MANAGER-CAttending ProviderActive Team Status: Active Member Role Status Dates Opal Ga DO Primary Care Provider Active Frankie Paiz MDEmecyruscy ProviderActiveKristopher Sally , DOAdmit Provider, Attending ProviderActive Team Status: Inactive Member Role Status Dates Opal Ga DO Primary Care Provider Active Frankie Paiz MDEmecyruscy ProviderActiveKristopher Sally , DOAdmit ProviderActiveKatherine SciarappaOther ProviderActiveNicole Wil , DOOther ProviderActiveSttyrone Dickens MDOther ProviderActiveChristophe Scott Rizvi , DO Other ProviderActiveFelicia JESSICA Knight-BCOther ProviderActiveAdam Scott Mane , DOOther ProviderActiveAngela Scott Degroot , APRNOther ProviderActiveAnoop Raymon , MDAttending ProviderActiveMickari Reynolds MDOther ProviderActive Team Status: Inactive Member Role Status Dates Opal Ga , DO Primary Care Provider Active Enedelia Gomez , APRNAttending ProviderActive Team Status: Active Member Role Status Dates Opal Ga , DO Primary Care Provider Active Opal Ga , DO CHCAttending ProviderActive Team Status: Inactive Member Role Status Dates Opal Ga , DO Primary Care Provider Active Opal Ga , DO CHCAttending ProviderActiveTeam MemberRelationshipSpecialty Start DateEnd Date Opal Ga DO [facility]01/05/21 Team Status: Inactive Member Role Status Dates Opal Ga DO Primary Care Provider Active Sta rt: July 19, 2023 End: July 19, 2023W Be Mcintyre DOAttshelbi ProviderActiveStart: July 19, 2023 End: July 19, 2023 Team Status: Inactive Member Role Status Wil Ga DO Primary Care Provide r, Attending Provider Active Start: September 12, 2023 End: September 12, 2023 Team Status: Active Member Role Status Dates Bhupinder Mcintyre DO Specialist Active PAUL[facility] Care ProviderActive Team Status: Inactive Member Role Status Dates Opal Ga DO Primary Care Provide r, Attending Provider Active Start: September 21, 2023 End: September 21, 2023 Team Status: Inactive Member Role Status Wil Ga DO Primary Care Provide r, Attending Provider Active Start: December 27, 2023 End: December 27, 2023Team MemberRelationshipSpecialtyStart DateEnd Date Opal Ga DO [facility]01/05/21Team MemberRelationshipSpecialtyStart DateEnd Date [facility]al Ga [facility] Team Status: Inactive Member Role Status Dates Opal Ga , Primary Care Provide r, Attending Provider Active Start: December 30, 2023 End: December 30, 2023 Team Status: Active Member Role Status Dates Marcos Martin , Emergency Provider Active Sta rt: March 10, 2024 Opal Ga , DOPrimary Care ProviderActiveStart: March 10, 2024 Mitchell Reyes , MDAdmit Provider, Attending ProviderActiveStart: March 10, 2024 Team Status: Inactive Member Role Status Dates Sandip Aguirre , Attending Provider Active Start: July 09, 2024 End: July 09, 2024 Team Status: Active Member Role Status Dates Bhupinder Mcintyre , Specialist Active Sandippriscilla Aguirre , DOPrimary Care ProviderActive Team Status: Active Member Role Status Dates Melvi Qureshi APRN Emergency Provider Active S tart: July 12, 2024 Sandip Mirzating , DOPrimary Care ProviderActiveStart: July 12, 2024 Mario Jordan MDAdmit Provider, Attending ProviderActiveStart: July 12, 2024 Team Status: Inactive Member Role Status Dates Melvi Qureshi APRN Emergency Provider Active S tart: July 12, 2024 End: July 17, 2024Daamy Aguirer , DOPrimary Care ProviderActiveStart: July 12, 2024 End: July 17fatemeh Jordan MDAdmit ProviderActiveStart: July 12, 2024 End: July 17, 2024Keith Woodall MDOther ProviderActiveStart: July 12, 2024 End: July 17, 2024Vinay Lynn MDOther ProviderActiveStart: July 12, 2024 End: July 17, 2024Trisha Hebert MDOther ProviderActiveStart: July 12, 2024 End: July 17, 2024Ronald Watson MDOther ProviderActiveStart: July 12, 2024 End: July 17, 2024Keith Batista MDOther ProviderActiveStart: July 12, 2024 End: July 17herve Wong MDOther ProviderActiveStart: July 12, 2024 End: July 17, 2024Elizabeth Velázquez ProviderActiveStart: July 12, 2024 End: July 17sandhya Larry , SENIOR ACCOUNTING MANAGER-COther ProviderActiveStart: July 12, 2024 End: July 17guanakito Gomez MACHINE SLAT BASKET MAKER-BCOther ProviderActiveStart: July 12, 2024 End: July 17, 2024Elizabeth Vargas ProviderActiveStart: July 12, 2024 End: July 17, 2024Jennifer Dingending ProviderActiveStart: July 12, 2024 End: July 17, 2024 Team Status: Active Member Role Status Dates Melvi Qureshi APRN Emergency Provider Active S tart: 2024 Sandip Aguirre , DOPrimary Care ProviderActiveStart: 2024 Mario Jordan MDAdmit Provider, Other ProviderActiveStart: 2024 Keith Woodall MDOther ProviderActiveStart: 2024 Vinay Lynn MDOther ProviderActiveStart: 2024 Trisha Hebert MDOther ProviderActiveStart: 2024 Ronald Watson MDOther ProviderActiveStart: 2024 Keith Batista MDOther ProviderActiveStart: 2024 Albert Wong MDOther ProviderActiveStart: 2024 Bayron Tom MDOther ProviderActiveStart: 2024 Nkechi Larry , SENIOR ACCOUNTING MANAGER-COther ProviderActiveStart: 2024 Ella Gomez MACHINE SLAT BASKET MAKER-BCOther ProviderActiveStart: 2024 Bryce Villeda DOOther ProviderActiveStart: 2024 Jennifer Vargasending Provider, Other ProviderActiveStart: 2024 Team Status: Active Member Role Status Dates DO Jacqueline Baron Active PHYSICIAN NO FAMILYPrimary Care ProviderActive Team Status: Active Member Role Status Dates Melvi Qureshi COTTRELL OPERATOR Emergency Provider Active S tart: 2024 Sandip Aguirre , DOPrimary Care ProviderActiveStart: 2024 Bartolo Fajardoit ProviderActiveStart: 2024 Mario Jordan MDOther ProviderActiveStart: 2024 Keith Woodall MDOther ProviderActiveStart: 2024 Vinay Lynn MDOther ProviderActiveStart: 2024 Trisha Hebert MDOther ProviderActiveStart: 2024 Ronald Watson MDOther ProviderActiveStart: 2024 Keith Batista MDOther ProviderActiveStart: 2024 Albert Wong MDOther ProviderActiveStart: 2024 Bayron Tom MDOther ProviderActiveStart: 2024 Nkechi Larry NP-COther ProviderActiveStart: 2024 PEPE Villalobos-BCOther ProviderActiveStart: 2024 Bryce Villeda DOOther ProviderActiveStart: 2024 Jennifer Vargasending ProviderActiveStart: 2024 Frankie Reynolds MDOther ProviderActiveStart: 2024 Team Status: Inactive Member Role Status Dates Sandip Aguirre DO Primary Care Provider Active Start: July 23, 2024 End: July 23, 2024Sandip Aguirre DOAttending ProviderActiveStart: July 23, 2024 End: July 23, 2024 Team Status: Inactive Member Role Status Dates Opal Ga DO Primary Care Provider Active Sta rt: August 27, 2024 End: August 27Christal Hassan ProviderActiveStart: August 27, 2024 End: August 27, 2024 Team Status: Inactive Member Role Status Dates Opal Ga DO Attending Provider Active Start: September 14, 2024 End: September 14, 2024PHYSICIAMADOU NO FAMILYPrimary Care ProviderActiveStart: September 14, 2024 End: September 14, 2024 Team Status: Inactive Member Role Status Dates Keely Montoya APRN Attending Provider Active Start: September 18, 2024 End: September 18Clarisa Hassancarraway methodist medical centershelia Care ProviderActiveStart: September 18, 2024 End: September 18, 2024 Team Status: Inactive Member Role Status Dates Opal Ga DO Primary Care Provider Active Sta rt: September 24, 2024 End: September 24, 2024W Be Mcintyre DOAttending ProviderActiveStart: September 24, 2024 End: September 24, 2024 Team Status: Inactive Member Role Status Dates Opal Ga DO Primary Care Provider Active Sta rt: October 04, 2024 End: October 04, 2024Mickari Reynolds MDAttending ProviderActiveStart: October 04, 2024 End: October 04, 2024 Team Status: Active Member Role Status Dates Opal Ga DO Primary Care Provider Active Sta rt: October 05, 2024 Arleen Mares ProviderActiveStart: October 05, 2024 Frankie Johnson DOAdmit ProviderActiveStart: October 05, 2024 Frankie Johnson DOAttshelbi ProviderActiveStart: October 05, 2024 Team Status: Active Member Role Status Dates Opal Ga DO Primary Care Provider Active Sta rt: October 05, 2024 Arleen Mares ProviderActiveStart: October 05, 2024 Rocky Quinnit ProviderActiveStart: October 05, 2024 Franck Gagnon DOOther ProviderActiveStart: October 05, 2024 Ata Singh ProviderActiveStart: October 05, 2024 Elizabeth Singh ProviderActiveStart: October 05, 2024 Team Status: Inactive Member Role Status Dates Opal Ga DO Primary Care Provider Active Sta rt: October 07, 2024 End: October 10, 2024Arleen Mares ProviderActiveStart: October 07, 2024 End: October 10, 2024Mickari Johnson DOAdmit ProviderActiveStart: October 07, 2024 End: October 10, 2024Frankie Johnson DOAttending ProviderActiveStart: October 07, 2024 End: October 10, 2024 Team Status: Inactive Member Role Status Dates Opal Ga DO Primary Care Provider Active Sta rt: October 31, 2024 End: October 31, 2024Keely Montoya APRNAttending ProviderActiveStart: October 31, 2024 End: October 31, 2024 Team Status: Inactive Member Role Status Dates Opal Ga DO Primary Care Provider Active Sta rt: October 31, 2024 End: October 31, 2024Jovany Stovall MDAttending ProviderActiveStart: October 31, 2024 End: October 31, 2024 Team Status: Inactive Member Role Status Dates Opal Ga DO Primary Care Provider Active Sta rt: November 06, 2024 End: November 06, 2024Elenanrdés Montoya , APRNAttending ProviderActiveStart: November 06, 2024 End: November 06, 2024 Team Status: Inactive Member Role Status Dates Opal Ga DO Primary Care Provider Active Sta rt: November 29, 2024 End: November 29, 2024Elenandrés Montoya , APRNAttending ProviderActiveStart: November 29, 2024 End: November 29, 2024 Team Status: Active Member Role Status Dates Opal Ga DO Primary Care Provider Active Sta rt: October 06, 2024 Jennifer Vargasending ProviderActiveStart: October 06, 2024 Team Status: Inactive Member Role Status Dates Opal Ga DO Primary Care Provider Active Sta rt: December 04, 2024 End: December 04, 2024Elenandrés Montoya , APRNAttending ProviderActiveStart: December 04, 2024 End: December 04, 2024 Team Status: Active Member Role Status Dates Opal Ga DO Primary Care Provider Active Sta rt: October 06, 2024 ISSA Mares-CEmergemarjorie ProviderActiveStart: October 06, 2024 Frankie Johnson DOAdmit ProviderActiveStart: October 06, 2024 Franck Gagnon DOOther ProviderActiveStart: October 06, 2024 Ata Singh ProviderActiveStart: October 06, 2024 Jovany Stovall MDOther ProviderActiveStart: October 06, 2024 Team Status: Active Member Role Status Dates Opal Ga DO Primary Care Provider Active Sta rt: December 12, 2024 Sree Thao DOEmergency ProviderActiveStart: December 12, 2024 Akash Tosha Doamekpor , MDAdmit ProviderActiveStart: December 12, 2024 Akash E Doamekpor , MDAttending ProviderActiveStart: December 12, 2024 Team Status: Inactive Member Role Status Dates Opal Ga DO Primary Care Provider Active Sta rt: December 12, 2024 End: December 18lexdelgado Engsteven DOEmergency ProviderActiveStart: December 12, 2024 End: December 18, 2024Frederbronson Givens Doamekpor , MDAdmit ProviderActiveStart: December 12, 2024 End: December 18, 2024Rabecka Knight MDAttending ProviderActiveStart: December 12, 2024 End: December 18, 2024 Team Status: Active Member Role/Relationship Status Dates Bhupinder Mcintyre DO Specialist Active Team Status: Inactive Member Role/Relationship Status Dates Opal Ga DO Primary Care Provider Active Sta rt: October 04, 2024 End: October 04, 2024MicAta Samson ProviderActiveStart: October 04, 2024 End: October 04, 2024 Team Status: Active Member Role/Relationship Status Dates Opal Ga DO Primary Care Provider Active Sta rt: October 06, 2024 Ata Vargas ProviderActiveStart: October 06, 2024 Team Status: Active Member Role/Relationship Status Dates Opal Ga DO Primary Care Provider Active Sta rt: October 06, 2024 Arleen Mares ProviderActiveStart: October 06, 2024 Rocky Quinnit ProviderActiveStart: October 06, 2024 Franck Gagnon DOOther ProviderActiveStart: October 06, 2024 Ata Singh ProviderActiveStart: October 06, 2024 Elizabeth Singh ProviderActiveStart: October 06, 2024 Team Status: Inactive Member Role/Relationship Status Dates Opal Ga DO Primary Care Provider Active Sta rt: October 07, 2024 End: October 10, 2024Arleen Mares ProviderActiveStart: October 07, 2024 End: October 10, 2024Michael Frings , DOAdmit ProviderActiveStart: October 07, 2024 End: October 10, 2024Mickari Johnson DOAttending ProviderActiveStart: October 07, 2024 End: October 10, 2024 Team Status: Inactive Member Role/Relationship Status Dates Opal Ga DO Primary Care Provider Active Sta rt: October 31, 2024 End: October 31, 2024Dafrederic Stovall MDAttending ProviderActiveStart: October 31, 2024 End: October 31, 2024 Team Status: Inactive Member Role/Relationship Status Wil Ga DO Primary Care Provider Active Sta rt: November 06, 2024 End: November 06, 2024Elena Jan , APRNAttending ProviderActiveStart: November 06, 2024 End: November 06, 2024 Team Status: Inactive Member Role/Relationship Status Wil Ga DO Primary Care Provider Active Sta rt: November 29, 2024 End: November 29, 2024Elena Jan , APRNAttending ProviderActiveStart: November 29, 2024 End: November 29, 2024 Team Status: Inactive Member Role/Relationship Status Wil Ga DO Primary Care Provider Active Sta rt: December 04, 2024 End: December 04, 2024Elena Jan , APRNAttending ProviderActiveStart: December 04, 2024 End: December 04, 2024 Team Status: Inactive Member Role/Relationship Status Wil Ga DO Primary Care Provider Active Sta rt: December 12, 2024 End: December 18Zuleyma Vickersrgenfortino ProviderActiveStart: December 12, 2024 End: December 18, 2024Akash Mccartney MDAdmit ProviderActiveStart: December 12, 2024 End: December 18, 2024Rabecka Knight MDAttending ProviderActiveStart: December 12, 2024 End: December 18, 2024 Team Status: Active Member Role/Relationship Status Wil Ga DO Primary Care Provider Active Sta rt: December 27, 2024 Cristy rPince SENIOR ACCOUNTING MANAGER-CAttending ProviderActiveStart: December 27, 2024 Team Status: Inactive Member Role/Relationship Status Dates Liliana Miller DO Attending Provider Active Start: December 27, 2024 End: December 27, 2024 Team Status: Active Member Role/Relationship Status Dates Clarence Schroeder DO Attending Provider Active Sta rt: December 30, 2024 Team Status: Inactive Member Role/Relationship Status Dates Clarence Schroeder DO Attending Provider Active Sta rt: December 30, 2024 End: December 30, 2024 Team Status: Active Member Role/Relationship Status Dates Sha Pepe MD Attending Provider Active Sta rt: December 31, 2024 Goals (unrecognized section and content) Goals may be documented in a n alternate section (unrecognized sect ion and content) No Status Records FoundNo Status Records FoundNo Status Records FoundNo Status Records FoundNo Status Records FoundNo Status Records FoundNo Status Records FoundNo Status Records Found INFORMATION SOURCE (unrecogn ized section and content) DATE CREATED AUTHOR 07/09/2022 [facility] DATE CREATED AUTHOR AUTHOR'S ORGANIZ ATION 07/09/2022 [employer] DATE CREATED AUTHOR AUTHOR'S ORGANIZ ATION 07/16/2022 [facility] DATE CREATED AUTHOR AUTHOR'S ORGANIZ ATION 03/16/2024 [facility] DATE CREATED AUTHOR AUTHOR'S ORGANIZ ATION 08/04/2024 [facility] DATE CREATED AUTHOR AUTHOR'S ORGANIZ ATION 08/16/2024 [facility] DATE CREATED AUTHOR AUTHOR'S ORGANIZ ATION 10/20/2024 [facility] DATE CREATED AUTHOR AUTHOR'S ORGANIZ ATION 01/03/2025 [facility] Ordered Prescriptions (unrec ognized section and content) PrescriptionSigDispensedRefillsStart DateEnd Date cefdinir (OMNICEF) 300 MG capsule Take 1 capsule by mouth 2 times daily for 7 days 14 capsule oxyCODONE-acetaminophen (PERCOCET) 5-325 MG per tablet Indications:Lumbar stenosis with neurogenic claudicationTake 1 tablet by mouth every 6 hours as needed for Pain for up to 7 days. Max Daily Amount: 4 tablets 28 tablet Scheduled Active and Recently Administ ered Medications (unrecognized section and content) Medication Order allopurinol (ZYLOPRIM) tablet 300 mg 300 mg, Oral, DAILY, First dose on Tue02/21/24 at 2030, Until Discontinued * 0826 (Given - Provider: Dontrell Molina RN) * 0724 (Given - Provider: Dontrell Molina RN) * 0751 (Given - Provider: Norma Peter, RN) apixaban (ELIQUIS) tablet 5 mg 5 mg, Oral, 2 TIMES DAILY, First dose (after last modification) on Tue02/24/24 at 0900, Until Discontinued, Indication of Use: A Fib/A Flutter, ANTICOAGULANT * 0826 (Given - Provider: Dontrell Molina RN) * 2002 (Given - Provider: Cristy Chau, RN) * 0725 (Given - Provider: Dontrell Molina RN) * 2057 (Given - Provider: Cristy Chau, RN) * 08 (Given - Provider: Norma Peter, RN) * 2099 (Due) atorvastatin (LIPITOR) tablet 40 mg 40 mg, Oral, DAILY, First dose on Tue02/21/24 at 2030, Until Discontinued * 0826 (Given - Provider: Dontrell Molina RN) * 0725 (Given - Provider: Dontrell Molina RN) * 0752 (Given - Provider: Norma Peter, RN) bisacodyl (DULCOLAX) EC tablet 10 mg 10 mg, Oral, DAILY, First dose (after last modification) on Tue02/23/24 at 0900, Until Discontinued, Do not crush or break., Post-op * 0826 (Given - Provider: Dontrell Molina RN) * 0726 (Given - Provider: Dontrell Molina RN) * 0726 (Not Given - Provider: Norma Peter RN - Reason: Patient/family refused) bumetanide (BUMEX) injection 1 mg (COMPLETED) 1 mg, IntraVENous, ONCE, 1 dose, On Tue02/25/24 at 0900 * 0827 (Given - Provider: Dontrell Molina RN) bumetanide (BUMEX) tablet 1 mg 1 mg, Oral, DAILY, First dose (after last modification) on Tue02/23/24 at 1900, Until Discontinued * 0826 (Held - Provider: Dontrell Molina RN - Reason: Pt NPO) * 0725 (Given - Provider: Dontrell Molina RN) * 0927 (Given - Provider: Norma Peter, RN) carvedilol (COREG) tablet 6.25 mg 6.25 mg, Oral, 2 TIMES DAILY WITH MEALS, First dose on Tue02/21/24 at 2030, Until Discontinued, Hold for sbp < 100 or HR < 60 Administer with food to minimize the risk of orthostatic hypotension * 1011 (Held - Provider: Dontrell Molina RN - Reason: Pt NPO) * 1755 (Given - Provider: Dontrell Molina RN) * 0726 (Given - Provider: Dontrell Molina RN) * 1514 (Given - Provider: Dontrell Molina, MARK) * 0752 (Given - Provider: Norma Peter, RN) * 1700 (Due) ceFEPIme (MAXIPIME) 2,000 mg in sodium chloride 0.9 % 100 mL IVPB (mini-bag) (Linked Group 1) 2,000 mg, IntraVENous, at 25 mL/hr, Administer over 240 Minutes, EVERY 12 HOURS, First dose on Tue02/25/24 at 2000 * 2003 (New Bag - Provider: Cristy Chau RN) * 0008 (Stopped - Provider: Cristy Chau RN) * 0745 (New Bag - Provider: Dontrell Molina RN) * 1232 (Stopped - Provider: Dontrell Molina RN) * 204 (New Bag - Provider: Cristy Chau RN) * 0104 (Stopped - Provider: Cristy Chau RN) * 0802 (New Bag - Provider: Norma Peter, MARK) * 1234 (Stopped - Provider: Norma Peter, MARK) * 1999 (Due) ceFEPIme (MAXIPIME) 2,000 mg in sterile water 20 mL IV syringe (COMPLETED) (Linked Group 1) 2,000 mg, IntraVENous, ONCE, 1 dose, On 02/25/24 at 0800, Antimicrobial Indications: Bloodstream Infection, Administer as slow IV Push over 5 mins Reconstitute 2 g vial with 10 mL of designated diluent. Then, to produce a 100 mg/mL solution, further dilute in syringe to 20 mL. * 0828 (Given - Provider: Dontrell Molina RN) folic acid (FOLVITE) tablet 1 mg 1 mg, Oral, DAILY, First dose on Tue02/24/24 at 1300, Until Discontinued * 0826 (Given - Provider: Dontrell Molina RN) * 0725 (Given - Provider: Dontrell Molina RN) * 0752 (Given - Provider: Norma Peter, RN) levothyroxine (SYNTHROID) tablet 150 mcg 150 mcg, Oral, DAILY, First dose on Tue02/22/24 at 0700, Until Discontinued, Tube feeding (TF) interaction, obtain physician order to manage, recommend holding TF for 30 minutes before and after dose. * 0826 (Given - Provider: Dontrell Molina RN) * 0725 (Given - Provider: Dontrell Molina RN) * 0752 (Given - Provider: Norma Peter, RN) lisinopril (PRINIVIL;ZESTRIL) tablet 2.5 mg 2.5 mg, Oral, DAILY, First dose on Tue02/25/24 at 0900, Until Discontinued, Hold for SBP < 110 * 0826 (Held - Provider: Dontrell Molina RN - Reason: Pt NPO) * 0726 (Given - Provider: Dontrell Molina RN) * 0749 (Not Given - Provider: Norma Peter RN - Reason: Order parameters not met) magnesium citrate solution 296 mL 296 mL, Oral, ONCE, 1 dose, On Tue02/24/24 at 1945, Administer each dose with 8 oz (240 mL) of water. midodrine (PROAMATINE) tablet 2.5 mg 2.5 mg, Oral, 3 TIMES DAILY WITH MEALS, First dose (after last modification) on Tue02/24/24 at 0800, Until Discontinued, Do not give after 1800 or within 4 hrs of bedtime. Hold for sbp > 120 * 0826 (Held - Provider: Dontrell Molina RN - Reason: Pt NPO) * 1005 (Given - Provider: Dontrell Molina RN) * 1754 (Held - Provider: Dontrell Molina RN - Reason: Order parameters not met) * 0725 (Held - Provider: Dontrell Molina RN - Reason: Order parameters not met) * 1106 (Given - Provider: Dontrell Molina RN) * 1514 (Given - Provider: Dontrell Molina, RN) * 0752 (Given - Provider: Norma Peter, RN) * 1234 (Given - Provider: Norma Peter, RN) * 1700 (Due) polyethylene glycol (GLYCOLAX) packet 17 g 17 g, Oral, DAILY, First dose on Tue02/21/24 at 1945, Until Discontinued, Stir and dissolve one packet of powder (17 g) in any 4 to 8 ounces of beverage (cold, hot or room temperature) then drink, Post-op * 0826 (Held - Provider: Dontrell Molina RN - Reason: Pt NPO) * 722 (Given - Provider: Dontrell Molina RN) * 726 (Not Given - Provider: Norma Peter RN - Reason: Patient/family refused) sennosides-docusate sodium (SENOKOT-S) 8.6-50 MG tablet 2 tablet 2 tablet, Oral, 2 TIMES DAILY, First dose (after last modification) on Tue02/22/24 at 2100, Until Discontinued, Post-op * 1013 (Given - Provider: Dontrell Molina RN) * 2002 (Given - Provider: Cristy Chau RN) * 722 (Given - Provider: Dontrell Molina RN) * 2128 (Not Given - Provider: Cristy Chau RN - Reason: Patient/family refused) * 746 (Not Given - Provider: Norma Peter RN - Reason: Patient/family refused) * 2099 (Due) sodium chloride flush 0.9 % injection 5-40 mL 5-40 mL, IntraVENous, EVERY 12 HOURS SCHEDULED (2 times per day), First dose on Tue02/21/24 at 2100, Until Discontinued, For Line Patency: Peripheral IV = 5 mL; Midline or Central Line = 10 mL/lumen. If following IV push medication, administer flush at same rate as the IV push. Flush volume is determined by type of infusion therapy being given. For non-viscous solutions use: Peripheral IV = 5 mLMidline or Central Line = 10 mL/lumen For viscous solutions (i.e. blood components, parenteral nutrition, contrast media, or after obtaining blood sample) use: Peripheral IV = 10 mL Midline or Central Line = 20 mL/lumen, Post-op * 0826 (Held - Provider: Dontrell Molina RN - Reason: Pt NPO) * 2004 (Given - Provider: Cristy Chau RN) * 726 (Canceled Entry - Provider: Dontrell Molina RN) * 2058 (Given - Provider: Cristy Chau, MARK) * 0803 (Given - Provider: Norma Peter, MARK) * 2100 (Due) thiamine tablet 100 mg 100 mg, Oral, DAILY, First dose on Tue02/24/24 at 1300, Until Discontinued * 1013 (Given - Provider: Dontrell Molina RN) * 0725 (Given - Provider: Dontrell Molina RN) * 075 (Given - Provider: Norma Peter, MARK) traZODone (DESYREL) tablet 50 mg 50 mg, Oral, NIGHTLY, First dose on Tue02/21/24 at 2100, Until Discontinued * 0015 (Given - Provider: Vignesh Diane RN - Comment: Daughter wanted held due to pt being sleepy during the day but patient is now agitated and awake.) * 2002 (Given - Provider: Cristy Chau RN) * 2057 (Given - Provider: Cristy Chau RN) * 2099 (Due) Medication Order02/24/[id number]//[id number]/ 0.9 % sodium chloride infusion IntraVENous, at 5-250 mL/hr, PRN, if patient receiving piggyback infusions and maintenance fluids are not ordered OR KVO fluids to protect IV site / prevent frequent line interruptions/ long duration, Starting on Tue02/21/24 at 1918, For piggyback infusion, administer at same rate as piggyback fora total of 25 mL. Enter 25 mL into dose field and piggyback rate into rate field of order. If piggyback is infusing at a rate less than 100 mL/hr, enter 25 mL into dose field and 100 mL/hr into rate field of order. For KVO fluids, enter rate of 20 mL/hr or less into rate field of order., Post-op * 1999 (New Bag - Provider: Cristy Chau RN) acetaminophen (TYLENOL) suppository 650 mg 650 mg, Rectal, EVERY 4 HOURS PRN, Starting on Tue02/25/24 at 0700, Until Discontinued, Pain Mild (1-3), Fever, Maximum dose of acetaminophen is 4000 mg from all sources in 24 hours. * 075 (Given - Provider: Dontrell Molina, MARK) acetaminophen (TYLENOL) tablet 650 mg 650 mg, Oral, EVERY 6 HOURS PRN, Starting on Tue02/21/24 at 1918, Until Discontinued, Pain Mild (1-3), Fever, Maximum dose of acetaminophen is 4000 mg from all sources in 24 hours., Post-op * 0350 (Given - Provider: Cristy Chau, RN) * 0949 (Given - Provider: Dontrell Molina, MARK) * 1512 (Given - Provider: Dontrell Molina RN) * 0208 (Given - Provider: Cristy hCau RN) * 0754 (Given - Provider: Norma Peter, RN) * 1238 (Given - Provider: Norma Peter, MARK) biotene oral solution 15 mL, Swish & Spit, 3 TIMES DAILY PRN, Starting on Tue02/25/24 at 0814, Until Discontinued, Dry Mouth bisacodyl (DULCOLAX) suppository 10 mg 10 mg, Rectal, DAILY PRN, Starting on Tue02/21/24 at 191, Until Discontinued, Constipation, Second line therapy for constipation, After 24 hours, if no result from first line PRN therapy, give second line therapy in combination with first line therapy., Post-op cyclobenzaprine (FLEXERIL) tablet 10 mg 10 mg, Oral, 3 TIMES DAILY PRN, Starting on Tue02/21/24 at 191, Until Discontinued, Muscle spasms, Post-op dextrose 10 % infusion IntraVENous, at 100 mL/hr, CONTINUOUS PRN, if blood glucose remains LESS THAN 70 mg/dL after 2 dextrose 10% intravenous boluses or administration of glucagon, Starting on Tue02/21/24 at 1918, If blood glucose fails to stabilize after 2 dextrose 10% intravenous boluses or glucagon administration, start dextrose 10% infusion at 100 mL/hour and repeat blood glucose at 30 and 60 minutes. If blood glucose is GREATER THAN 70 mg/dL after 60 minutes, discontinue dextrose 10% infusion. dextrose bolus 10% 125 mL(Linked Group 2) 125 mL, IntraVENous, at 937.5 mL/hr, Administer over 8 Minutes, PRN, Other, Blood glucose 40 - 69 mg/dL and patient NOT ALERT or NPO, Starting on Tue02/21/24 at 1917, Repeat blood glucose in 15 minutes. If blood glucose remains LESS THAN 70 mg/dL, repeat treatment and recheck blood glucose in 15 minutes x 2. If using glycemic management system, dose as instructed per system. If blood glucose remains LESS THAN 70 mg/dL after 2 intravenous boluses start dextrose 10% at 100 mL/hour and notify provider. dextrose bolus 10% 250 mL(Linked Group 2) 250 mL, IntraVENous, at 937.5 mL/hr, Administer over 16 Minutes, PRN, Other, Blood glucose LESS THAN 40 mg/dL and patient NOT ALERT or NPO, Starting on Tue02/21/24 at 1917, Repeat blood glucose in 15 minutes. If blood glucose remains LESS THAN 70 mg/dL, repeat treatment and recheck blood glucose in 15 minutes x 2. If using glycemic management system, dose as instructed per system. If blood glucose remains LESS THAN 70 mg/dL after 2 intravenous boluses start dextrose 10% at 100 mL/hour and notify provider. glucagon injection 1 mg 1 mg, SubCUTAneous, PRN, Starting on Tue02/21/24 at 1917, Until Discontinued, Low blood sugar, Blood glucose LESS THAN 70 mg/dL and patient NOT ALERT or NPO and does not have IV access., After administration, attempt intravenous access and start dextrose 10% at 100 mL/hr. Repeat blood glucose in 15 minutes x 2 and notify provider. Reconstitute powder for injection by adding 1 mL of sign painter apprentice-supplied sterile diluent or sterile water for injection to a vial containing 1 mg of the drug, to provide solutions containing 1 mg/mL. Shake vial gently to dissolve. glucose chewable tablet 16 g 16 g (4 tablet), Oral, PRN, Starting on Tue02/21/24 at 1917, Until Discontinued, Low blood sugar, If blood glucose is LESS THAN 70 mg/dL and patient is alert and tolerating oral. Give 4 tablets (16g) Repeat blood glucose in 15 minutes. If blood glucose is LESS THAN 70 mg/dL, repeat treatment and re check blood glucose in 15 minutes x 2. If blood glucose remains LESS THAN 70 mg/dL, notify provider. magnesium hydroxide (MILK OF MAGNESIA) 400 MG/5ML suspension 30 mL 30 mL, Oral, DAILY PRN, Starting on Tue02/21/24 at 1917, Until Discontinued, Constipation, First line therapy for constipation., Post-op ondansetron (ZOFRAN) injection 4 mg(Linked Group 3) 4 mg, IntraVENous, EVERY 6 HOURS PRN, Starting on Tue02/21/24 at 1917, Until Discontinued, Nausea,Vomiting, Administer if oral route cannot be used., Post-op ondansetron (ZOFRAN-ODT) disintegrating tablet 4 mg(Linked Group 3) 4 mg, Oral, EVERY 8 HOURS PRN, Starting on Tue02/21/24 at 191, Until Discontinued, Nausea, Vomiting, Post-op oxyCODONE (ROXICODONE) immediate release tablet 10 mg(Linked Group 4) 10 mg, Oral, EVERY 6 HOURS PRN, Starting on Tue02/21/24 at 1917, Until Discontinued, Pain Severe (7-10), Post-op oxyCODONE (ROXICODONE) immediate release tablet 5 mg(Linked Group 4) 5 mg, Oral, EVERY 6 HOURS PRN, Starting on Tue02/21/24 at 1917, Until Discontinued, Pain Moderate (4-6), Post-op potassium bicarb-citric acid (EFFER-K) effervescent tablet 40 mEq(Linked Group 5) 40 mEq, Oral, PRN, Starting on Tue02/25/24 at 0709, Until Discontinued, Per Potassium Replacement Protocol, Administer as alternative if patient unable to tolerate oral tablet. K Lab Replacement Action 3.1 to 3.5 40 mEq ORAL x 1 Under 3.1 Refer to IV replacement protocol Recheck K level in AM. Protocol not for use in patients with CrCl less than 30 mL/min. Do not chew or crush. Dissolve flavoredtablets completely in 3 to 4 ounces of cold water; unflavored tablets may be dissolved in 3 to 4 ounces of cold juice. Patient to sip slowly over a 5 to 10 minute period. May further dilute if GI adverse effects occur. * 0824 (See Alternative - Provider: Dontrell Molina RN) * 0955 (See Alternative - Provider: Dontrell Molina RN) * 0723 (See Alternative - Provider: Dontrell Molina RN) potassium chloride (KLOR-CON M) extended release tablet 40 mEq(Linked Group 5) 40 mEq, Oral, PRN, Starting on 02/25/24 at 0709, Until Discontinued, Potassium Replacement, Maygive alternative linked oral order (ordered as effervescent, packet, or liquid solution) if patientunable to tolerate tablet. K Lab Replacement Action 3.1 to 3.5 40 mEq ORAL x 1 Under 3.1 Refer to IV replacement protocol Recheck K level in AM. Protocol not for use in patients with CrCl less than 30 mL/min. Do not crush, chew, or suck on tablet. Tablet may also be broken in half and each half swallowed separately. * 0824 (See Alternative - Provider: Dontrell Molina RN) * 0955 (See Alternative - Provider: Dontrell Molina RN) * 0723 (Given - Provider: Dontrell Molina RN) potassium chloride 10 mEq/100 mL IVPB (Peripheral Line)(Linked Group 5) 10 mEq, IntraVENous, PRN, Starting on 02/25/24 at 0709, Until Discontinued, at 100 mL/hr, Potassium Replacement, K Lab Replacement Action 2.7 to 3.0 10 mEq IVPB x 6 doses (60 mEq Total) Under 2.7CALL PROVIDER and administer 10 mEq IVPB x 6 doses (60 mEq Total) Infuse at 10 mEq/hr. Repeat Potassium lab 1 hour after final administration. Protocol not for use in patients with CrCl less than 30 m L/min. * 0824 (New Bag - Provider: Dontrell Molina RN) * 0955 (New Bag - Provider: Dontrell Molina RN) * 0723 (See Alternative - Provider: Dontrell Molina RN) sodium chloride flush 0.9 % injection 5-40 mL 5-40 mL, IntraVENous, PRN, Starting on Tue02/21/24 at 1918, Until Discontinued, Line Care, After every IV line use, For Line Patency: Peripheral IV = 5 mL; Midline or Central Line = 10 mL/lumen. If following IV push medication, administer flush at same rate as the IV push. Flush volume is determined by type of infusion therapy being given. For non-viscous solutions use: Peripheral IV = 5 mL Midline or Central Line = 10 mL/lumen For viscous solutions (i.e. blood components, parenteral nutrition, contrast media, or after obtaining blood sample) use: Peripheral IV = 10 mL Midline or Central Line = 20 mL/lumen, Post-op Order Group 1: ceFEPIme (MAXIPIME) 2,000 mg in sterile water 20 mL IV syringe (COMPLETED)Jump to med 2,000 mg, IntraVENous, ONCE, 1 dose, On 02/25/24 at 0800, Antimicrobial Indications: Bloodstream Infection, Administer as slow IV Push over 5 mins Reconstitute 2 g vial with 10 mL of designated diluent. Then, to produce a 100 mg/mL solution, further dilute in syringe to 20 mL. Followed by ceFEPIme (MAXIPIME) 2,000 mg in sodium chloride 0.9 % 100 mL IVPB (mini-bag)Jump to med 2,000 mg, IntraVENous, at 25 mL/hr, Administer over 240 Minutes, EVERY 12 HOURS, First dose on Tue02/25/24 at 2000 Group 2: dextrose bolus 10% 125 mLJump to med 125 mL, IntraVENous, at 937.5 mL/hr, Administer over 8 Minutes, PRN, Other, Blood glucose 40 - 69 mg/dL and patient NOT ALERT or NPO, Starting on Tue02/21/24 at 191, Repeat blood glucose in 15 minutes. If blood glucose remains LESS THAN 70 mg/dL, repeat treatment and recheck blood glucose in 15 minutes x 2. If using glycemic management system, dose as instructed per system. If blood glucose remains LESS THAN 70 mg/dL after 2 intravenous boluses start dextrose 10% at 100 mL/hour and notify provider. Or dextrose bolus 10% 250 mLJump to med 250 mL, IntraVENous, at 937.5 mL/hr, Administer over 16 Minutes, PRN, Other, Blood glucose LESS THAN 40 mg/dL and patient NOT ALERT or NPO, Starting on Tue02/21/24 at 1917, Repeat blood glucose in 15 minutes. If blood glucose remains LESS THAN 70 mg/dL, repeat treatment and recheck blood glucose in 15 minutes x 2. If using glycemic management system, dose as instructed per system. If blood glucose remains LESS THAN 70 mg/dL after 2 intravenous boluses start dextrose 10% at 100 mL/hour and notify provider. Group 3: ondansetron (ZOFRAN-ODT) disintegrating tablet 4 mgJump to med 4 mg, Oral, EVERY 8 HOURS PRN, Starting on Tue02/21/24 at 191, Until Discontinued, Nausea, Vomiting, Post-op Or ondansetron (ZOFRAN) injection 4 mgJump to med 4 mg, IntraVENous, EVERY 6 HOURS PRN, Starting on Tue02/21/24 at 1917, Until Discontinued, Nausea,Vomiting, Administer if oral route cannot be used., Post-op Group 4: oxyCODONE (ROXICODONE) immediate release tablet 5 mgJump to med 5 mg, Oral, EVERY 6 HOURS PRN, Starting on Tue02/21/24 at 1918, Until Discontinued, Pain Moderate (4-6), Post-op Or oxyCODONE (ROXICODONE) immediate release tablet 10 mgJump to med 10 mg, Oral, EVERY 6 HOURS PRN, Starting on Tue02/21/24 at 1918, Until Discontinued, Pain Severe (7-10), Post-op Group 5: potassium chloride (KLOR-CON M) extended release tablet 40 mEqJump to med 40 mEq, Oral, PRN, Starting on 02/25/24 at 0709, Until Discontinued, Potassium Replacement, Maygive alternative linked oral order (ordered as effervescent, packet, or liquid solution) if patientunable to tolerate tablet. K Lab Replacement Action 3.1 to 3.5 40 mEq ORAL x 1 Under 3.1 Refer to IV replacement protocol Recheck K level in AM. Protocol not for use in patients with CrCl less than 30 mL/min. Do not crush, chew, or suck on tablet. Tablet may also be broken in half and each half swallowed separately. Or potassium bicarb-citric acid (EFFER-K) effervescent tablet 40 mEqJump to med 40 mEq, Oral, PRN, Starting on Tue02/25/24 at 0709, Until Discontinued, Per Potassium Replacement Protocol, Administer as alternative if patient unable to tolerate oral tablet. K Lab Replacement Action 3.1 to 3.5 40 mEq ORAL x 1 Under 3.1 Refer to IV replacement protocol Recheck K level in AM. Protocol not for use in patients with CrCl less than 30 mL/min. Do not chew or crush. Dissolve flavoredtablets completely in 3 to 4 ounces of cold water; unflavored tablets may be dissolved in 3 to 4 ounces of cold juice. Patient to sip slowly over a 5 to 10 minute period. May further dilute if GI adverse effects occur. Or potassium chloride 10 mEq/100 mL IVPB (Peripheral Line)Jump to med 10 mEq, IntraVENous, PRN, Starting on 02/25/24 at 0709, Until Discontinued, at 100 mL/hr, Potassium Replacement, K Lab Replacement Action 2.7 to 3.0 10 mEq IVPB x 6 doses (60 mEq Total) Under 2.7CALL PROVIDER and administer 10 mEq IVPB x 6 doses (60 mEq Total) Infuse at 10 mEq/hr. Repeat Potassium lab 1 hour after final administration. Protocol not for use in patients with CrCl less than 30 m L/min. Source Comments (unrecognize d section and content) In the event this informatio n is protected by the Federal Confidentiality of Alcohol and Drug Abuse Patient Records regulations: The Federal rules restrict any use of the information to criminally investigate or prosecute any alcohol or drug abuse patient.[facility] FOR RECORDS PERTAINING TO PATIENTS WHO ARE [...] BE BASED ON THE PRIMARY CLINICAL RECORDS. [facility]. provides no warranty or guarantee of the accuracy or completeness of information in this document.
== END 2025-01-16 14:25 | disposition home or self-care (01) ==
LOC: WC 14:24
PROVIDERS: PCP Family Medicine; Visit Provider Podiatrist Foot & Ankle Surgery
DX: L89.612 Pressure ulcer of right heel, stage 2 (principal)
CPT/HCPCS: A6213; G0463

== ENCOUNTER 2025-01-25 10:29 | Outpatient (REF) | payer MEDICARE, BC, SELFPAY ==
--- OUTSIDE RECORDS SUMMARY | 2023-08-02 05:45 | XMS_ITS ---
Author Organization [facility] Address [address] [place] [address] [place] [address] Care Team Providers Care Financial Agent Name Role Phone Pawel Echavarria Unavailable [phone] Mendy Bull Unavailable Unavailable Allergies Allergen (clinical drug ingredient) Drug/Non Drug Allergy documented on EMR Reaction Allergy Type Onset Date Status zolpidem Ambien Unknown Drug Allergy ActiveDuragesic-100UnknownDrug AllergyActivefentanylFentanylUnknownDrug Allergy ActiveindomethacinIndocinUnknownDrug AllergyActivepenicillaminePenicillamine anaphylaxisDrug AllergyActive REASON FOR VISIT rfc Medications Medication SIG (Take, Route, Frequency, Duration) Notes Start Date End Date Status Magnesium 400 MG Tablet as directed Orally ActiveSenna 30 MG Miscellaneousas directed OrallyActivePotassiminActive Acetaminophen 500 MG Capsule2 capsule as needed Orally BID prnActiveAllopurinol 300 MG Tablet1 tablet Orally Once a day; Duration: 30 day(s)ActiveLipitor 40 MG Tablet1 tablet Orally Once a day; Duration: 30 day(s)ActivetraZODone HCl 50 MG Tablet1 tablet at bedtime as needed Orally Once a day; Duration: 30 day(s)Active Lunesta 3 MG Tablet1 tablet immediately before bedtime Orally Once a dayActive Synthroid 150 MCG Tablet1 tablet in the morning on an empty stomach Orally Once a day; Duration: 30 day(s)ActiveSpironolactone 25 MG Tablet1 tablet Orally; Duration: 30 day(s)ActiveoxyBUTYnin Chloride ER 5 MG Tablet Extended Release 24 Hour1 tablet Orally Once a day; Duration: 30 day(s)ActiveEliquis 2.5 MG Tabletas directed OrallyActivetraMADol HCl 50 MG Tablet1 tablet as needed Orally Q 6 hrs prnActive Social History Tobacco Use: Social History Observation Description Date Details (start date - stop date) Never Smoker NA - NA Social History Social HistorySocial InfoQuestionAnswerNotestobacco usePatient is a:non smoker Vital Signs Height 64 in 08/02/2023 Encounters Encounter Location Date Provider Diagnosis [facility] [address] [place] [address] 08/02/2023 Pawel Echavarria Plan Of Treatment No Information Progress Notes * Irineo WALLIS JrDOB:01/1941 (84 yo M)Acc No.[id number]:08/02/2023 Patient:?Irineo Wallis Jr :?Pawel Echavarria DPMDOB:1940???Age:83 Y???Sex: MaleDate:08/02/2023hone:Address:[place] [address] Subjective: * Chief Complaints: * R fc * Medical History: Hypertension Hyperlidemia Atrial fibrillation Overactive bladder Lumbar spondylosis Heart murmur Stomach ulcers Poor circulation Thyroid disease Skin conditions * Family History: mother heart attack. * Social History: T obacco use P atient is a: n on smoker. * Medications: T akingoxyBUTYnin Chloride ER 5 MG Tablet Extended Release 24 Hour 1 tablet Orally Once a day traMADol HCl 50 MG Tablet 1 tablet as needed Orally Q 6 hrs prn Eliquis 2.5 MG Tablet as directed Orally Lipitor 40 MG Tablet 1 tablet Orally Once a day Spironolactone 25 MG Tablet 1 tablet Orally Synthroid 150 MCG Tablet 1 tablet in the morning on an empty stomach Orally Once a day Lunesta 3 MG Tablet 1 tablet immediately before bedtime Orally Once a day traZODone HCl 50 MG Tablet 1 tablet at bedtime as needed Orally Once a day Allopurinol 300 MG Tablet 1 tablet Orally Once a day Acetaminophen 500 MG Capsule 2 capsule as needed Orally BID prn Senna 30 MG Miscellaneous as directed Orally Magnesium 400 MG Tablet as directed Orally Potassimin Taking oxyBUTYnin Chloride ER 5 MG Tablet Extended Release 24 Hour 1 tablet Orally Once a day Taking traMADol HCl 50 MG Tablet 1 tablet as needed Orally Q 6 hrs prn Taking Eliquis 2.5 MG Tablet as directed Orally Taking Lipitor 40 MG Tablet 1 tablet Orally Once a day Taking Spironolactone 25 MG Tablet 1 tablet Orally Taking Synthroid 150 MCG Tablet 1 tablet in the morning on an empty stomach Orally Once a day Taking Lunesta 3 MG Tablet 1 tablet immediately before bedtime Orally Once a day Taking traZODone HCl 50 MG Tablet 1 tablet at bedtime as needed Orally Once a day Taking Allopurinol 300 MG Tablet 1 tablet Orally Once a day Taking Acetaminophen 500 MG Capsule 2 capsule as needed Orally BID prn Taking Senna 30 MG Miscellaneous as directed Orally Taking Magnesium 400 MG Tablet as directed Orally Taking Potassimin * Allergies: F entanylPenicillamine: anaphylaxisDuragesic-100IndocinAmbien Objective: * Vitals: H t: 64 in. * Electronic signature of Pawel Echavarria DPM on 01/25/2025 at 10:34 AM ESTSign off status: Pending * Provider: Danae Echavarria DPM Date: 0 08/02/2023 Generated for Printing/Faxing/eTransmitting on:?01/25/2025 10:34 AM EST
--- OUTSIDE RECORDS SUMMARY | 2024-03-26 04:45 | XMS_ITS ---
Author Organization [facility] Address [address] [place] [address] [place] [address] Care Team Providers Care Audio Video Technician Name Role Phone Pawel Echavarria Unavailable [phone] Mendy Bull Unavailable Unavailable Allergies Allergen (clinical drug ingredient) Drug/Non Drug Allergy documented on EMR Reaction Allergy Type Onset Date Status zolpidem Ambien Unknown Drug Allergy ActiveDuragesic-100UnknownDrug AllergyActivefentanylFentanylUnknownDrug Allergy ActiveindomethacinIndocinUnknownDrug AllergyActivepenicillaminePenicillamine anaphylaxisDrug AllergyActive REASON FOR VISIT c Medications Medication SIG (Take, Route, Frequency, Duration) Notes Start Date End Date Status Magnesium 400 MG Tablet as directed Orally ActiveAcetaminophen 500 MG Capsule2 capsule as needed Orally BID prnActive Bumetanide 1 MG Tablet1 tablet Orally Once a dayActivePotassium Chloride ER 20 MEQ Tablet Extended Release1 tablet with food Orally Once a dayActiveEszopiclone 3 MG Tablet1 tablet immediately before bedtime Orally Once a dayActivetraZODone HCl 50 MG Tablet1 tablet at bedtime as needed Orally Once a day; Duration: 30 day(s)ActiveEliquis 5 MG Tabletas directed OrallyActiveLipitor 40 MG Tablet1 tablet Orally Once a day; Duration: 30 day(s)ActiveSpironolactone 25 MG Tablet1 tablet Orally; Duration: 30 day(s)ActiveSynthroid 150 MCG Tablet1 tablet in the morning on an empty stomach Orally Once a day; Duration: 30 day(s)Active Social History Tobacco Use: Social History Observation Description Date Details (start date - stop date) Never Smoker NA - NA Social History Social HistorySocial InfoQuestionAnswerNotestobacco usePatient is a:non smoker Vital Signs Height 64 in 03/26/2024 Encounters Encounter Location Date Provider Diagnosis [facility] [address] [place] [address] 03/26/2024 Pawel Echavarria Plan Of Treatment No Information Progress Notes * PADDYDENISIrineo JrDOB:01/1941 (84 yo M)Acc No.[id number]:03/26/2024 Patient:?BryonborisdenisIrineo Jr :?Pawel Echavarria DPMDOB:1940???Age:83 Y???Sex: MaleDate:03/26/2024Phone:Address:[facility] [place] Subjective: * Chief Complaints: * R fc * Medical History: Hypertension Hyperlidemia Atrial fibrillation Overactive bladder Lumbar spondylosis Heart murmur Stomach ulcers Poor circulation Thyroid disease Skin conditions * Family History: mother heart attack. * Social History: T obacco use P atient is a: n on smoker. * Medications: T akingBumetanide 1 MG Tablet 1 tablet Orally Once a day Potassium Chloride ER 20 MEQ Tablet Extended Release 1 tablet with food Orally Once a day Eszopiclone 3 MG Tablet 1 tablet immediately before bedtime Orally Once a day Eliquis 5 MG Tablet as directed Orally Lipitor 40 MG Tablet 1 tablet Orally Once a day Spironolactone 25 MG Tablet 1 tablet Orally Synthroid 150 MCG Tablet 1 tablet in the morning on an empty stomach Orally Once a day traZODone HCl 50 MG Tablet 1 tablet at bedtime as needed Orally Once a day Acetaminophen 500 MG Capsule 2 capsule as needed Orally BID prn Magnesium 400 MG Tablet as directed Orally Taking Bumetanide 1 MG Tablet 1 tablet Orally Once a day Taking Potassium Chloride ER 20 MEQ Tablet Extended Release 1 tablet with food Orally Once a day Taking Eszopiclone 3 MG Tablet 1 tablet immediately before bedtime Orally Once a day Taking Eliquis 5 MG Tablet as directed Orally Taking Lipitor 40 MG Tablet 1 tablet Orally Once a day Taking Spironolactone 25 MG Tablet 1 tablet Orally Taking Synthroid 150 MCG Tablet 1 tablet in the morning on an empty stomach Orally Once a day Taking traZODone HCl 50 MG Tablet 1 tablet at bedtime as needed Orally Once a day Taking Acetaminophen 500 MG Capsule 2 capsule as needed Orally BID prn Taking Magnesium 400 MG Tablet as directed Orally * Allergies: F entanylPenicillamine: anaphylaxisDuragesic-100IndocinAmbien Objective: * Vitals: H t: 64 in. * Electronic signature of Pawel Echavarria DPM on 01/25/2025 at 10:35 AM ESTSign off status: Pending * Provider: Danae Echavarria DPM Date: 0 03/26/2024 Generated for Printing/Faxing/eTransmitting on:?01/25/2025 10:35 AM EST
--- OUTSIDE RECORDS SUMMARY | 2024-04-13 04:20 | XMS_ITS ---
Author Organization [facility] Address [address] [place] [address] Care Team Providers Care Labor Delivery Specialist Name Role Phone Randi Burris Unavailable [phone] SIXTO SIMMONS CNP Unavailable Unavailable REASON FOR VISIT L2-5 DECOMPRESSION AND NON INSTRUMENTED FUSION, [facility] , 02/20 Encounters Encounter Location Date Provider Diagnosis [facility] [facility] [address] [place] [address] [place] [address] 04/13/2024 Randi Burris Plan Of Treatment No Information Progress Notes * TAVO WALLIS JR RDOB:01/1941 (84 yo M)Acc No.[id number]:04/13/2024 Progress Notes Patient: Sharifa BRAVO TAVO [place] :?Randi Man MD, PhDDOB:1940 ???Age:83 Y???Sex:MaleDate:04/13/2024Phone:[phone]:[address] [place] [place], [id number] Subjective: * Chief Complaints: * 1 . L2-5 DECOMPRESSION AND NON INSTRUMENTED FUSION, [facility] , 02/20. * Medical History: * Surgical History: R otator cuff surgery , L2-5 laminectomy, PSF 02/21/2024. Objective: * Vitals: Assessment: Plan: * Treatment: Forms: * Images: * Electronic signature of Randi Burris MD, PHD on 01/25/2025 at 10:33 AM EST Sign off status: Pending * Provider: Myranda Man MD, PhD Date: 0 04/13/2024 Generated for Printing/Faxing/eTransmitting on:?01/25/2025 10:33 AM EST
--- OUTSIDE RECORDS SUMMARY | 2024-05-25 05:30 | XMS_ITS ---
Author Organization [facility] Address [address] [place] [address] Care Team Providers Care Tripe Finisher Name Role Phone Randi Burris Unavailable [phone] SIXTO SIMMONS CNP Unavailable Unavailable REASON FOR VISIT S.P I & D, 04/13/24 Encounters Encounter Location Date Provider Diagnosis [facility] [facility] [address] [place] [address] [place] [address] 05/25/2024 Randi Burris Plan Of Treatment No Information Progress Notes * TAVO WALLIS JR RDOB:01/1941 (84 yo M)Acc No.[id number]:05/25/2024 Progress Notes Patient: Sharifa BRAVO TAVO MCFARLAND :?Randi Man MD, PhDDOB:1940 ???Age:83 Y???Sex:MaleDate:05/25/2024Phone:[phone]:[address] [phone] Subjective: * Chief Complaints: * 1 . S.P I & D, 04/13/24. * Medical History: * Surgical History: R otator cuff surgery , L2-5 laminectomy, PSF 02/21/2024, Lumbar wound I & D 04/17/2024. Objective: * Vitals: Assessment: Plan: * Treatment: Forms: * Images: * Electronic signature of Randi Burris MD, PHD on 01/25/2025 at 10:34 AM EST Sign off status: Pending * Provider: Myranda Man MD, PhD Date: 0 05/25/2024 Generated for Printing/Faxing/eTransmitting on:?01/25/2025 10:34 AM EST
--- OUTSIDE RECORDS SUMMARY | 2024-06-08 05:10 | XMS_ITS ---
Author Organization [facility] Address [address] [place] [address] Care Team Providers Care Pole Sander Operator Name Role Phone Randi Burris Unavailable [phone] SIXTO SIMMONS CNP Unavailable Unavailable REASON FOR VISIT lumbar recheck Medications Medication SIG (Take, Route, Frequency, Duration) Notes Start Date End Date Status magnesium oxide ActivepramipexoleActivetraZODoneActivepotassium chlorideActiveOxycodoneActive Flexeril 10 mg1 tab(s) orally 3 times a day prn muscle adofml51/16/2024Active Flexeril 10 mg1 tab(s) orally 3 times a day5ActiveatorvastatinActive EliquisActiveallopurinolActivelevothyroxineActiveeszopicloneActivebumetanide Active Encounters Encounter Location Date Provider Diagnosis [facility] Office [address] [place] [address] [place] [address] 06/08/2024 Randi Burris Plan Of Treatment Pending Test Test Name Order Date Lumbar spine 2v ap and lat - [id number] 06/08 Progress Notes * TAVO WALLIS JR RDOB:01/1941 (84 yo M)Acc No.[id number]:06/08/2024 Patient:?TAVO WALLIS JR :?Randi Man MD, PhDDOB:1940 ???Age:83 Y???Sex:MaleDate:06/08/2024Phone:[phone]:[address] [id number] Subjective: * Chief Complaints: * 1 . [...] Lumbar spine 2v ap and lat - 99032 Forms: * Images: * Electronic signature of Randi Burris MD, PHD on 01/25/2025 at 10:35 AM EST Sign off status: Pending * Provider: Myranda Man MD, PhD Date: 0 06/08/2024 Generated for Printing/Faxing/eTransmitting on:?01/25/2025 10:35 AM EST
--- OUTSIDE RECORDS SUMMARY | 2024-07-20 05:00 | XMS_ITS ---
Author Organization [facility] Address [address] [place] [address] Care Team Providers Care Hospice/Home Health Aide Name Role Phone Randi Burris Unavailable [phone] SIXTO SIMMONS CNP Unavailable Unavailable REASON FOR VISIT LUMBAR RECHECK Medications Medication SIG (Take, Route, Frequency, Duration) Notes Start Date End Date Status Flexeril 10 mg 1 tab(s) orally 3 times a day pr n muscle spasms 4ActiveFlexeril 10 mg1 tab(s) orally 3 times a day5Active atorvastatinActiveallopurinolActiveEliquisActivemagnesium oxideActiveOxycodone ActiveeszopicloneActivelevothyroxineActivebumetanideActivetraZODoneActive pramipexoleActivepotassium chlorideActive Encounters Encounter Location Date Provider Diagnosis [facility] Office [address] [place] [address] [place] [address] 07/20/2024 Randi Burris Plan Of Treatment No Information Progress Notes * TAVO WALLIS JR RDOB:01/1941 (84 yo M)Acc No.[id number]:07/20/2024 Patient:?TAVO WALLIS JR :?Randi Man MD, PhDDOB:1940 ???Age:84 Y???Sex:MaleDate:07/20/2024Phone:[phone]:[address], [place] [id number] Subjective: * Chief Complaints: * 1 . [...] PhD Date: 0 07/20/2024 Generated for Printing/Faxing/eTransmitting on:?01/25/2025 10:35 AM EST
--- OUTSIDE RECORDS SUMMARY | 2024-08-10 05:20 | XMS_ITS ---
Author Organization [facility] Address [address] [place] [address] Care Team Providers Care Blocker And Polisher Gold Wheel Name Role Phone Randi Burris Unavailable [phone] SIXTO SIMMONS CNP Unavailable Unavailable REASON FOR VISIT LUMBAR RECHECK Encounters Encounter Location Date Provider Diagnosis [facility] Office [address] [place] [address] [place] [address] 08/10/2024 Randi Burris Plan Of Treatment No Information Progress Notes * TAVO WALLIS JR RDOB:01/1941 (84 yo M)Acc No.[id number]:08/10/2024 Patient:?TAVO WALLIS JR :?Randi Man MD, PhDDOB:1940 ???Age:84 Y???Sex:MaleDate:08/10/2024Phone:[phone]:[address] [phone] Subjective: * Chief Complaints: * 1 . LUMBAR RECHECK. * Medical History: Objective: * Vitals: Assessment: Plan: * Treatment: Forms: * Images: * Electronic signature of Randi Burris MD, PHD on 01/25/2025 at 10:33 AM EST Sign off status: Pending * Provider: Myranda Man MD, PhD Date: 0 08/10/2024 Generated for Printing/Faxing/eTransmitting on:?01/25/2025 10:33 AM EST
--- OUTSIDE RECORDS SUMMARY | 2024-08-31 05:40 | XMS_ITS ---
Author Organization [facility] Address [address] [place] [address] Care Team Providers Care Farm Crew Member Name Role Phone Randi Burris Unavailable [phone] SIXTO SIMMONS CNP Unavailable Unavailable REASON FOR VISIT LUMBAR RECHECK Medications Medication SIG (Take, Route, Frequency, Duration) Notes Start Date End Date Status atorvastatin ActiveallopurinolActiveEliquisActiveFlexeril 10 mg1 tab(s) orally 3 times a day 5ActiveFlexeril 10 mg1 tab(s) orally 3 times a day prn muscle spasms 4ActiveOxycodoneActivelevothyroxineActivemagnesium oxideActive bumetanideActiveeszopicloneActivepotassium chlorideActivetraZODoneActive pramipexoleActive Encounters Encounter Location Date Provider Diagnosis [facility] [address] [place] [address] 08/31/2024 Randi Burris Plan Of Treatment Pending Test Test Name Order Date Lumbar spine 2v ap and lat - 88457 08/31 Progress Notes * TAVO WALLIS JR RDOB:01/1941 (84 yo M)Acc No.[id number]:08/31/2024 Patient:?TAVO WALLIS JR :?Randi Man MD, PhDDOB:1940 ???Age:84 Y???Sex:MaleDate:08/31/2024Phone:[phone]:[address] [id number] Subjective: * Chief Complaints: * 1 . [...] Lumbar spine 2v ap and lat - 22208 * Procedure Codes: 7 2100 X-ray Lumbar Spine, 2 view Forms: * Images: * Electronic signature of Randi Burris MD, PHD on 01/25/2025 at 10:35 AM EST Sign off status: Pending * Provider: Myranda Man MD, PhD Date: 0 08/31/2024 Generated for Printing/Faxing/eTransmitting on:?01/25/2025 10:35 AM EST
--- OUTSIDE RECORDS SUMMARY | 2025-01-25 10:33 | XMS_ITS | Clinical Summary ---
Author Organization [facility] Address [address] [place] [id number] Care Team Providers Care Fish Net Stringer Name Role Phone Unavailable Primary Care Provider Unavailabl e Allergies Active AllergyReactionsCriticalityNoted DateCommentsPenicillinsMental Status Aizmbg1004/07/2004 Medications MedicationSigDispense QuantityRefillsLast FilledStart DateEnd DateStatus SYNTHROID 150 MCG TABLET Take one(1) tablet daily.Active ALLOPURINOL 300 MG TABLET Take one(1) tablet daily.Active HYTRIN 2 MG CAPSULE Take one(1) capsule daily.Active BUMEX 2 MG TABLET Take one(1) tablet daily.Active CELEBREX 200 MG CAPSULE Take one(1) capsule daily.Active LEXAPRO 5 MG TABLET take one half [id number] VICODIN 5/500 TABLET as jmggzi555Active K-DUR 20 MEQ TABLET SA Take one(1) tablet daily.Active Active Problems No known active problems Family History Medical HistoryRelationCommentsAlzheimer's DiseaseMotherCoronary Artery Disease MotherHad CABG when she was olderThyroidSisterHypothyroidismobesitySister RelationStatusCommentsMotherSister Social History Tobacco UseTypesPacks/DayYears UsedDateSmoking Tobacco: BdgktbItlzrbmsys004 04/07/1964 - 04/07/1994 Comments:Started in [place] Alcohol UseStandard Drinks/WeekCommentsYes0 (1 standard drink = 0.6 oz pure alcohol)A few beers every daySex and Gender InformationValueDate RecordedSex Assigned at BirthNot on fileLegal AixZzqq13/02/2012 10:06 AM ESTGender Identity Not on fileSexual OrientationNot on fileOccupationIndustryJob Start DateJob End DateNot on fileNot on fileNot on fileNot on file Last Filed Vital Signs Vital SignReadingTime TakenCommentsBlood Qmkdobfw603/85006/28/2024 10:50 AM EDT Efcyv7117 10:50 AM QCNKwobdhestdh97.9 ??C (98.5 ??F)06/28/2024 10:50 AM EDTRespiratory Rweb939106/28/2024 10:50 AM EDTOxygen Jkomgnrplq61%06/28/2024 10:50 AM EDTInhaled Oxygen Concentration--Clxpuu356.2 kg (276 lb)04/07/2004 3:44 PM ESTHeight--Body Mass Index-- Plan of Treatment Health MaintenanceDue DateLast DoneCommentsAnxiety Vzfnucdtd20/11/1960Depression Rtxyhlfpi65/11/1960DTaP,Tdap,Td Vaccine (1 - Tdap)1Diabetes Screening 1986Pneumococcal Vaccine: 50+ (1 of 1 - PCV)07/16/1991Shingrix Vaccine (1 of 2)07/16/1991RSV Vaccine (1 - 1-dose 75+ series)2016Advance Directive Clccsmzofa31/01/2025ovid-19 Vaccine (1 - 2024- season)2024Influenza Vaccine (#1)2024 Insurance
--- OUTSIDE RECORDS SUMMARY | 2025-01-25 10:34 | XMS_ITS | Patient Health Record ---
Author Organization [facility] Address [facility] [place] [address] Care Team Providers Care Virtual Reality Specialist Name Role Phone Pawel Echavarria Unavailable [phone] Mendy Bull Unavailable Unavailable Allergies Allergen (clinical drug ingredient) Drug/Non Drug Allergy documented on EMR Reaction Allergy Type Onset Date Status zolpidem Ambien Unknown Drug Allergy ActiveDuragesic-100UnknownDrug AllergyActivefentanylFentanylUnknownDrug Allergy ActiveindomethacinIndocinUnknownDrug AllergyActivepenicillaminePenicillamine anaphylaxisDrug AllergyActive Reason For Referral No Information Medications Medication SIG (Take, Route, Frequency, Duration) Notes Start Date End Date Status Magnesium 400 MG Tablet as directed Orally ActivetraZODone HCl 50 MG Tablet1 tablet at bedtime as needed Orally Once a day; Duration: 30 day(s)ActiveAcetaminophen 500 MG Capsule2 capsule as needed Orally BID prnActiveEliquis 5 MG Tabletas directed OrallyActiveLipitor 40 MG Tablet1 tablet Orally Once a day; Duration: 30 day(s)ActiveSpironolactone 25 MG Tablet1 tablet Orally; Duration: 30 day(s)ActiveSynthroid 150 MCG Tablet1 tablet in the morning on an empty stomach Orally Once a day; Duration: 30 day(s)Active Bumetanide 1 MG Tablet1 tablet Orally Once [...] Social HistorySocial InfoQuestionAnswerNotestobacco usePatient is a:non smoker Problems Problem Type SNOMED Code ICD Code Onset Dates Problem Status W/U Status Risk Notes Problem 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) (00637118363544574) Unspecified atherosclerosis of [place] arteries of extremities, bilateral legs (I70.203) ActiveconfirmedProblemAcquired hammer toe of right foot (7021654121064044)Other hammer toe(s) (acquired), right foot (M20.41)ActiveconfirmedProblemAcquired hammer toe of left foot (0927044620235819)Other hammer toe(s) (acquired), left foot (M20.42)Activeconfirmed Plan Of Treatment No Information Insurance Providers Payer Name Payer Address Payer Phone Subscriber Number Group Number Insured Name Patient Relationship to Insured Coverage Start Date Coverage End Date Medicare Part B [id number] Part [facility] Claims [address] [place] [address] [id number], WilliamSelf - patient is the insured[facility] and [facility] HospitalPO [address] [place], [place] [id number], WilliamSelf - patient is the insured Medical (General) History Medical History History ICD Code hypertension hyperlidemiaatrial fibrillationoveractive bladderlumbar spondylosisheart murmur stomach ulcerspoor circulationthyroid diseaseskin conditionsSurgical History Surgery Date(Month/Year)
--- OUTSIDE RECORDS SUMMARY | 2025-01-25 10:35 | XMS_ITS | Clinical Summary ---
Author Organization [facility] Address [address], [address] [place] [address] Care Team Providers Care Draw End Hand Name Role Phone Feliciano Ambrosio DO Primary Care Provider [phone] Allergies Active AllergyReactionsCriticalityNoted KyziGnkiubalYfubpwnuGat12/29/2018 Can't remember goofy LliyyorqgmplYon50/29/2018 Can't remember goofy and agitated RkcyccxjklrAmy42/29/2018 As child ZolpidemOther (See Comments)Low09/23/2020 Can't remember [...] Safety Domain Source: IP Abuse ScreeningAnswerDate RecordedPhysical ejqtsCikwoh92/17/2024Verbal abuseDenies 02/21/2024Emotional fsegmWfglkj77/17/2024Financial gposrAlyrqj59/17/2024Sexual ahknnOhzegn21/17/2024Sex and Gender InformationValueDate RecordedSex Assigned at BirthNot on fileLegal PkjUejf6704/16/2012 8:10 PM ESTGender IdentityNot on file Sexual OrientationNot on file Last Filed Vital Signs Vital SignReadingTime TakenCommentsBlood Slkdlpfg574/7302/27/2024 10:46 AM EST Jsqwr722402/27/2024 10:46 AM HRTQldnrxcrznd83.7 ??C (98 ??F)02/27/2024 10:46 AM ESTRespiratory Aiax056604/29/2023 10:46 AM ESTOxygen Aiqwabopbb45%02/27/2024 10:46 AM ESTInhaled Oxygen Concentration--Tzpjzv82.3 kg (190 lb 3.2 oz)02/21/2024 7:45 AM SVLQdlikx530.6 cm (5' 6 )02/21/2024 7:45 AM ESTBody Mass Index30.7104/23/2023 7:45 AM EST Plan of Treatment Health MaintenanceDue DateLast KtjaEeojxtluVrgnuk64/11/1952Depression Screen 4DTaP/Tdap/Td vaccine (1 - Tdap)1Shingles vaccine [...] Mendes TypeRelation to PatientDate of BirthPhone Billing AddressPersonal/GcojrnDjya04/11/1941 [address] [place] [address] * Guarantor: Krista Mendes TypeRelation to PatientDate of BirthPhone Billing AddressPersonal/IywaflIwpu21/11/1941 [address] [place] [address] Advance Directives * Full Code (Latest Code Status on File) Date ActivatedDate GevntawemguOyifhncj85/17/2024 7:35 AM02/27/2024 3:35 PM Care Teams Team MemberRelationshipSpecialtyStart DateEnd Date Feliciano Ambrosio DO [facility]CP [facility]07/22/17
--- OUTSIDE RECORDS SUMMARY | 2025-01-25 10:35 | XMS_ITS | Clinical Summary ---
Author Organization [facility] Address [id number] [address] [place] [address] Care Team Providers Care Boat Operator Name Role Phone TjcatieEdmondan Louis HARGROVE Primary Care Provider Allergies Active AllergyReactionsCriticalityNoted HgfvZpxcypqxCafsokfx67/20/2021Fentanyl 09/02/20175473Nodwrqdquvuj60/29/1495Vftnxcnrygh95/01/2005 Other reaction(s): Mental Status Change Medications MedicationSigDispense [...] MOUTH ONCE EVERY MORNING ON AN EMPTY FEWRDSS243Active magnesium oxide (MAG-OX) 400 mg tablet Take [...] DateBenign prostatic hyperplasia (BPH) with urinary urge sedzcbplcdjm57/07/2019 Overview (05/18/2022): urolift 12/21 (Ameena) Was using [...] standard drink = 0.6 oz pure alcohol)ChildcareAnswerDate AbiholvmEvqnivhjjXablhel82/04/2019EmploymentAnswer Date JlefchfrQydmeetfrvGzbiibk03/04/2019Hunger ScreeningAnswerDate Recorded Within the past 12 months we worried whether our food would run out before we got money to buy more.Never True05/18/2022Within the past 12 months the food we bought just didn't last and we didn't have money to get more.Never True 05/18/2022urpose - LifeAnswerDate RecordedPurpose and direction in lifeUnknown 03/31/2020ex and Gender InformationValueDate RecordedSex Assigned at BirthNot on fileLegal UzvQyal9110/08/2014 8:36 PM EDTGender IdentityNot on fileSexual OrientationNot on file Last Filed Vital Signs Vital SignReadingTime TakenCommentsBlood Latlbpsb478/7905/18/2022 11:26 AM EDT Jocux280005/18/2022 11:26 AM EDTTemperature--Respiratory Ulvw911105/18/2022 11:26 AM EDTOxygen Saturation--Inhaled Oxygen Concentration--Gusvbi27.6 kg (180 lb) 05/18/2022 11:26 AM HZVWyxcur043.6 cm (5' 6 )05/18/2022 11:26 AM EDTBody Mass Index29.05005/18/2022 11:26 AM EDT Plan of Treatment Health MaintenanceDue DateLast DoneCommentsDepression Jkiemtkes52/11/1954Tobacco Pemgjmmbw73/11/1954DTaP,Tdap and Td Vaccines (1 - Tdap)1960Zoster (Shingles) Vaccine (1 of 2)07/16/1991Fall Risk Tvtbmminm44/11/2007RSV ( or age 60+ yrs) (1 - 1-dose 75+ series)2016COVID-19 Vaccine (2024- season)/, 02/18/2021, 05/28/2020, Additional history exists Influenza Fjfmhwe61/, 12/22/2019, 12/06/2019, Additional history exists Medical Devices Not on file Insurance Care Teams Team MemberRelationshipSpecialtyStart DateEnd Date Feliciano Ambrosio DO PCP - GeneralFamily Medicine06/05/18
--- OUTSIDE RECORDS SUMMARY | 2025-01-25 10:35 | XMS_ITS | Clinical Summary ---
Author Organization [facility] Address [address] [place] [address] Phone Care Team Providers Care Financial Systems Administrator Name Role Phone Feliicano Ambrosio Louis HARGROVE Primary Care Provider [phone] Allergies Active AllergyReactionsCriticalityNoted DateCommentsFentanylDizziness,Nausea Only02/16/20237185KymqihoqybgwIshdg10/13/7547QkyyeevqtzzEosln67/13/2023Zolpidem Hzxqzcn4702/16/2023 Medications MedicationSigDispense QuantityRefillsLast FilledStart DateEnd DateStatus acetaminophen [...] current use of anticoagulant therapy 02/16/2024MI 30.0-30.9,adult02/16/2024Former wbdakp1402/16/2024hronic atrial pljsmzzxyoqt56/13/2023Echocardiogram ydlpyrse84/13/3593Dzokj25/13/2023rimary qeizergwrpnb18/13/2023Heart failure, NYHA class 212/Hyperlipemia 02/16/2023Mild CAD02/16/2023 Resolved Problems ProblemNoted DateDiagnosed DateResolved DateNon-ischemic cardiomyopathy Encounters DateTypeDepartmentCare BmtgCjpspsvqbqk15/09/2025Scanned Document [facility] [address] [place] [address] Scanning, Generic Provider 11/23/2024Refill [facility] [address] [address] Irineo Mcintyre, Chronic atrial fibrillation (Multi); Essential hypertension, benign; Non-ischemic cardiomyopathy (Multi)from Last 3 Months Immunizations ImmunizationAdministration DatesNext DueInfluenza, Qklaeuzijvs93/01/2019, 11/05/2017,04/07/2016Pneumococcal conjugate vaccine, 13-valent (PREVNAR 13) 04/07/2016 Family History Medical HistoryRelationNameCommentsNo Known ProblemsMotherRelationNameStatus CommentsMother Social History Tobacco UseTypesPacks/DayYears UsedDateSmoking Tobacco: FormerCigarettesQuit: 1980Smokeless Tobacco: Never Tobacco Cessation:Counseling Given: Yes Alcohol UseStandard Drinks/WeekCommentsYes3 (1 standard drink = 0.6 oz pure alcohol)Sex and Gender InformationValueDate RecordedSex Assigned at BirthNot on fileLegal YfvIguu99/26/2022 2:53 PM ESTGender IdentityNot on fileSexual OrientationNot on file Last Filed Vital Signs Vital SignReadingTime TakenCommentsBlood Jsnazlya801/8602/16/2024 3:20 PM EST Qiriz77841/12/2024 3:20 PM ESTTemperature--Respiratory Rate--Oxygen Saturation-- Inhaled Oxygen Concentration--Turpgl11.6 kg (191 lb)02/16/2024 3:20 PM ESTHeight 167.6 cm (5' 6 )02/16/2024 3:20 PM ESTBody Mass Index30.8302/16/2024 3:20 PM EST Plan of Treatment DateTypeDepartmentCare Team (Latest Contact Info)Uzraeepcuvy85/09/2025 10:00 AM ESTOffice Visit [facility] [address] [address] Enedelia Gomez, ANESTHESIOLOGIST AND CRITICAL CARE-[facility] [address] [facility] [address] [place] [address] Health MaintenanceDue DateLast DoneCommentsCreatinine Level1941Lipid Panel 1941Medicare Annual Wellness Visit (AWV)2Potassium Level 1941TSH Level2Diabetes Asbroxknn00/11/1960DTaP/Tdap/Td Vaccines (1 - Tdap)07/16/1963Zoster Vaccines (1 of 2)07/16/1991Pneumococcal Vaccine (2 of 2 - PPSV23, PCV20, or PCV21)RSV High Risk: (Elderly (60+) or Population) (1 - 1-dose 75+ series)2016Influenza Vaccine (#1) 510/, 12/24/2021, 12/22/2019, Additional history existsCOVID-19 Vaccine ( season)510/, 02/18/2021, 05/28/2020, Additional history tillwnFaoxtcndoyqour13/09/202610/11/2024, 02/23/2024, 01/10/2022, Additional history existsHIB VaccinesAged OutNo [...] DateEnd Date Feliciano Ambrosio DO PCP - Kyrqdbg92/1/21
--- OUTSIDE RECORDS SUMMARY | 2025-01-25 10:35 | XMS_ITS | Patient Health Record ---
Author Organization [facility] Address [address] [place] [address] Care Team Providers Care Enterprise Architect Manager Name Role Phone Randi Burris Unavailable [phone] SIXTO SIMMONS CNP Unavailable Unavailable Gustabo May Unavailable [phone] Maxine Torres Unavailable Allergies Allergen (clinical drug ingredient) Drug/Non Drug Allergy documented on EMR Reaction Allergy Type Onset Date Status penicillin (uncoded)UnknownAllergyActiveindomethacinindomethacinUnknownDrug AllergyActivefentanylfentaNYLUnknownDrug AllergyActivezolpidemAmbienUnknownDrug AllergyActive Results Component Value Reference Range Notes .eGFR Reviewed date:04/25/2024 11:56:06 AM Interpretation: Performing Lab: Notes/Report: [address] [address] Estimated GFR 55 >=60 mL/min/1.73m? [facility] have implemented the eGFR calculation approach [...] Insurance Company: MEDICARE Surgeon/Assist:ST SAGE/ AMIE OR ALEXISSurgery Location:[facility] Date & Time:04/13/24 @ 10:30AMHosp arrival time day of:9:30AMSurgery End Time:12:00PM Procedure:LUMBAR I &DSpecial Equipment:PRONE,ANABELLA TABLEAdmission Type: INPATIENTAnesthesia Type/CPNB:GENERALPost-op Appointment Date:05/25/24 @ 10:30AM JESIcheduler:Leno Physician:CLEAREDHistory & Physical Appointment Date/:04/13/24CT HEAD WO CONTRAST Reviewed date:03/06/2024 07:29:49 AM Interpretation: Performing Lab: Notes/Report: CT head without contrast [address] [address], Original Ordering Provider: Joanne LAWRENCE Provider Role: CopiedMagnesium Reviewed date:04/25/2024 11:56:11 AM Interpretation: Performing Lab: Notes/Report: [address] [address]Ickisaktt Lvl1.91.7-2.4 mg/dLTroponin-I Reviewed date:04/25/2024 11:56:06 AM Interpretation: Performing Lab: Notes/Report: [address] [address]Tpnblhij-T<0.030.00-0.03 ng/mL An increased Troponin-I value, in the absence of myocardial ischemia, may indicate other etiologiesof cardiac damage. 99th Percentile Cutoff for Negative/Positive: Negative <= 0.03 Positive >= 0.04 CMP Reviewed date:04/25/2024 11:56:11 AM Interpretation: Performing Lab: Notes/Report: [address] [address]Sztpce Krq716170-696 mmol/LPotassium Lvl3.23.4-4.8 mmol/L Izpqggbi3921-741 mmol/ARM12423-45 mmol/LAnion Yoe73-12Nxzsolu Gfi1432-24 mg/dL PNK377-29 mg/dLCreatinine Lvl1.300.61-1.24 mg/dLBUN Crea Ratio19.210.0-20.0Bili Total0.80.3-1.2 mg/dLAlk Emej92835-22 IU/YDUO2549-94 IU/NPCV4930-08 IU/LTotal Protein6.66.5-8.1 g/dLAlbumin Lvl3.03.2-4.9 g/dLAG Ratio0.81.1-2.2Calcium Lvl8.5 8.5-10.3 mg/dLPhosphorus Reviewed date:04/25/2024 11:56:11 AM Interpretation: Performing Lab: Notes/Report: [address] [address]Vzvjckmiel6.12.5-4.6 mg/dLBNP Reviewed date:04/25/2024 11:56:06 AM Interpretation: Performing Lab: Notes/Report: [address] [address]LOB8643-183 pg/mL.AMI 2 Hr Reviewed date:04/25/2024 11:56:06 AM Interpretation: Performing Lab: Notes/Report: [address] [address] Hour Troponin<0.030.00-0.03 ng/mL An increased Troponin-I value, in the absence of myocardial ischemia, may indicate other etiologiesof cardiac damage. 99th Percentile Cutoff for Negative/Positive: Negative <= 0.03 Positive >= 0.04 2 Hour Cawpzbsuc56.817.4-105.7 ng/mLMRSA, PCR Reviewed date:04/16/2024 01:17:51 PM Interpretation: Performing Lab: Notes/Report: [address] [address]Aizxpwuztbb Resistant Staph aurus(MRSA)Not DetectedNot Detected Mutations or polymorphisms in primer or probe binding regions may affect detection of new or unknown MRSA variants resulting in a false negative. The [employer] Xpert MRSA Assay is a qualitative in [...] available to the clinician. LAB ONLY Result Called?NoXR CHEST PORTABLE Reviewed date:03/06/2024 07:29:49 AM Interpretation: Performing Lab: Notes/Report: 1 view chest x-ray [place] [address], Original Ordering Provider: Joanne LAWRENCE Provider Role: CopiedXR LUMBAR SPINE 1 VW Reviewed date:02/22/2024 03:19:14 PM Interpretation: Performing Lab: Notes/Report: MOBILE LATERAL LUMBAR SPINE: [place] [address], Original Ordering Provider: Joanne CARLOS Provider Role: OrderingCBC w/ Diff Reviewed date:04/25/2024 11:56:11 AM Interpretation: Performing Lab: Notes/Report: [facility] [address] [place], [place] [address]QFP1.74.5-11.0 x10*3/mcLRBC2.784.30-5.80 x10*6/mcLHgb8.913.5- 17.5 g/dLHct26.741.0-53.0 %MCV96.180.0-100.0 fLMCH32.227.0-35.0 abCRLE54.531.0- 37.0 %Zekxapfy733002-950 x10*3/zsMEFY10.711.6-14.8 %Mean Platelet Volume6.76.7- 10.6 fLDiff Auto Reviewed date:04/25/2024 11:56:11 AM Interpretation: Performing Lab: Notes/Report: [address], [place] [address]Qtpwhl Auto63.447.2-70.8 %Lymph Auto25.527.2-40.8 %[place] Auto6.5 4.7-13.9 %Eos Auto3.90.0-6.1 %Basophil Auto0.70.0-1.2 %Neutro Absolute5.51.8-7.7 x10*3/mcLLymph Absolute2.21.0-4.8 x10*3/mcLMono Absolute0.60.3-1.1 x10*3/mcLEos Absolute0.30.0-0.4 x10*3/mcLBaso Absolute0.10.0-0.2 x10*3/mcLCBC w/ Diff Reviewed date:04/16/2024 01:17:51 PM Interpretation: Performing Lab: Notes/Report: [address], [place] [address]FCD0.54.5-11.0 x10*3/mcLRBC2.414.30-5.80 x10*6/mcLHgb7.713.5- 17.5 g/dLHct23.341.0-53.0 %MCV96.580.0-100.0 fLMCH32.027.0-35.0 fkIOEG17.231.0- 37.0 %Dxhlnzwt876121-929 x10*3/qpPJPV71.411.6-14.8 %Mean Platelet Volume6.96.7- 10.6 fLC Bld Reviewed date:04/20/2024 08:42:56 AM Interpretation: Performing Lab: Notes/Report: [address], [place] [address]Govm Patient Name: Tavo Wallis : 1940 [facility] C BldSee Below For Report Final No growth at 5 days. Severiano Watt Reviewed date:04/20/2024 08:42:56 AM Interpretation: Performing Lab: Notes/Report: [address] [address]Bgtm Patient Name: Tavo Wallis : 1940 [facility] Severiano Curielee Below For Report Final No growth at 5 days. Basic Metabolic Profile Reviewed date:04/16/2024 01:17:51 PM Interpretation: Performing Lab: Notes/Report: [address] [address]Cnlyll Xxo195580-947 mmol/LPotassium Lvl3.63.4-4.8 mmol/L Pammgrzl9626-003 mmol/YZO94628-68 mmol/LAnion Oeg63-04Hetxxmj Gcu9062-73 mg/dL ILN910-18 mg/dLCreatinine Lvl1.510.61-1.24 mg/dLBUN Crea Ratio15.210.0-20.0 Calcium Lvl8.58.5-10.3 mg/dLMagnesium Reviewed date:04/16/2024 01:17:51 PM Interpretation: Performing Lab: Notes/Report: [address] [address]Iffxqlskk Lvl2.01.7-2.4 mg/dL.eGFR Reviewed date:04/16/2024 01:17:51 PM Interpretation: Performing Lab: Notes/Report: [address] [address]Wtxwbaene GFR46>=60 mL/min/1.73m? [facility] have implemented the eGFR calculation approach [...] of SCr/? or 1 Age = years Diff Auto Reviewed date:04/16/2024 01:17:51 PM Interpretation: Performing Lab: Notes/Report: [facility] [address] [place], [place] [address]Eljzhe Auto55.647.2-70.8 %Lymph Auto33.227.2-40.8 %[place] Auto6.6 4.7-13.9 %Eos Auto3.80.0-6.1 %Basophil Auto0.80.0-1.2 %Neutro Absolute4.11.8-7.7 x10*3/mcLLymph Absolute2.51.0-4.8 x10*3/mcLMono Absolute0.50.3-1.1 x10*3/mcLEos Absolute0.30.0-0.4 x10*3/mcLBaso Absolute0.10.0-0.2 x10*3/mcLABO/Rh Reviewed date:04/16/2024 01:17:51 PM Interpretation: Performing Lab: Notes/Report: [facility] ([facility]KNOWN) [address] [place], [place] [address]AWL/RhABO/Rh: O POSABSC Auto Reviewed date:04/16/2024 01:17:51 PM Interpretation: Performing Lab: Notes/Report: [facility] ([facility]) [address] [place], [place] [address]KLGI AutoAntibody Screen: Negative ABSCHgb Reviewed date:04/18/2024 07:51:19 AM Interpretation: Performing Lab: Notes/Report: [address] [address]Hcd9.013.5-17.5 g/dLHct26.141.0-53.0 %B12 Reviewed date:04/16/2024 01:17:51 PM Interpretation: Performing Lab: Notes/Report: [address] [address]Bllpofg B12 Emd632071-230 pg/mLFolate Lvl Reviewed date:04/16/2024 01:17:51 PM Interpretation: Performing Lab: Notes/Report: [address] [address]Zgptvv Lvl5.9>=5.9 ng/mLA WHO Technical Consultation has determined that deficient Folate concentrations are considered to be less than 4 ng/mL.Ferritin Reviewed date:04/16/2024 01:17:51 PM Interpretation: Performing Lab: Notes/Report: [address] [address]Nfojcrzp Xaj974.523.9-336.2 ng/mLTIBC Reviewed date:04/16/2024 01:17:51 PM Interpretation: Performing Lab: Notes/Report: [address] [address]Hupe Sat11.6>=16.0 %ZNPS130903-257 mcg/bSUexpclvwmje738495-494 mg/iPOrpw8260-823 mcg/dL.eGFR Reviewed date:04/18/2024 07:51:19 AM Interpretation: Performing Lab: Notes/Report: [address] [address]Pkmntwdru GFR52>=60 mL/min/1.73m? [facility] have implemented the eGFR calculation approach [...] date:04/18/2024 07:51:19 AM Interpretation: Performing Lab: Notes/Report: [address] [address]Mvgqtldar Lvl2.01.7-2.4 mg/dLRetic Count Reviewed date:04/16/2024 01:17:51 PM Interpretation: Performing Lab: Notes/Report: [address] [address]Dbz40.041.0-53.0 %Reticulocyte1.60.8-2.5 %Ret Abs0.0370 Corrected Retic Count0.820.80-2.50 %Sodium Reviewed date:04/18/2024 07:51:19 AM Interpretation: Performing Lab: Notes/Report: [address] [address]Hjzltn Jnx448187-090 mmol/LBasic Metabolic Profile Reviewed date:04/18/2024 07:51:19 AM Interpretation: Performing Lab: Notes/Report: [address] [address]Vsalqd Tga571456-380 mmol/LPotassium Lvl3.73.4-4.8 mmol/L Ohsomocc30096-877 mmol/HPW19925-47 mmol/LAnion Zyd46-23Ahhxaht Cfe2454-25 mg/dL CVO881-96 mg/dLCreatinine Lvl1.370.61-1.24 mg/dLBUN Crea Ratio14.610.0-20.0 Calcium Lvl8.48.5-10.3 mg/dLVanco Trough Reviewed date:04/18/2024 07:51:19 AM Interpretation: Performing Lab: Notes/Report: [address], [place] [address]Hzcdi Lthvjc68.810.0-15.0 mcg/mLCBC w/ Diff Reviewed date:04/18/2024 07:51:19 AM Interpretation: Performing Lab: Notes/Report: [address], [place] [address]JRL6.64.5-11.0 x10*3/mcLRBC2.844.30-5.80 x10*6/mcLHgb9.013.5- 17.5 g/dLHct26.441.0-53.0 %MCV93.080.0-100.0 fLMCH31.827.0-35.0 brUMJB76.231.0- 37.0 %Rzexnsmj576203-490 x10*3/bsGPXI34.711.6-14.8 %Mean Platelet Volume6.56.7- 10.6 fLDiff Auto Reviewed date:04/18/2024 07:51:19 AM Interpretation: Performing Lab: Notes/Report: [address], [place] [address]Dpjgim Auto54.947.2-70.8 %Lymph Auto28.727.2-40.8 %[place] Auto9.7 4.7-13.9 %Eos Auto5.40.0-6.1 %Basophil Auto1.30.0-1.2 %Neutro Absolute3.11.8-7.7 x10*3/mcLLymph Absolute1.61.0-4.8 x10*3/mcLMono Absolute0.50.3-1.1 x10*3/mcLEos Absolute0.30.0-0.4 x10*3/mcLBaso Absolute0.10.0-0.2 x10*3/mcLHgb Reviewed date:04/18/2024 07:51:19 AM Interpretation: Performing Lab: Notes/Report: [address], [place] [address]Thk4.113.5-17.5 g/dLHct27.241.0-53.0 %Basic Metabolic Profile Reviewed date:04/18/2024 11:33:44 AM Interpretation: Performing Lab: Notes/Report: [address] [address]Qakvhu Qpf042854-725 mmol/LPotassium Lvl3.93.4-4.8 mmol/L Auoegvfv6858-007 mmol/VCI36212-93 mmol/LAnion Vcq25-96Gedjowr Gue6691-40 mg/dL SGW892-10 mg/dLCreatinine Lvl1.450.61-1.24 mg/dLBUN Crea Ratio13.110.0-20.0 Calcium Lvl8.38.5-10.3 mg/dLMagnesium Reviewed date:04/18/2024 11:33:44 AM Interpretation: Performing Lab: Notes/Report: [address] [address]Ikyvovfog Lvl1.81.7-2.4 mg/dLCRP Reviewed date:04/18/2024 11:33:44 AM Interpretation: Performing Lab: Notes/Report: [address] [address]WCD06.600.00-0.75 mg/dL CRP measurement is useful for assessment of non-specific INFLAMMATORY RESPONSE to infection or injury AND is a sensitive MARKER of ACUTE INFLAMMATION including CARDIAC RISK ASSESSMENT. CARDIAC patients with elevated CRP are POTENTIALLY at a HIGHER RISK OF FUTURE CARDIAC EVENTS. ESR Reviewed date:04/18/2024 11:33:44 AM Interpretation: Performing Lab: Notes/Report: [address] [address]Uti Jbcu872-63 mm/hr.eGFR Reviewed date:04/18/2024 11:33:44 AM Interpretation: Performing Lab: Notes/Report: [address] [address]Bhvbdwdzn GFR48>=60 mL/min/1.73m? [facility] have implemented the eGFR calculation approach [...] of SCr/? or 1 Age = years C KG Reviewed date:04/25/2024 11:56:06 AM Interpretation: Performing Lab: Notes/Report: [facility] [address] [place], [place] [address]Hukc Patient Name: Tavo Wallis : 1940 [facility] Severiano ANASee Below For Report Final No anaerobic growth after 72 hrs. C Sterile BS Reviewed date:04/25/2024 11:56:06 AM Interpretation: Performing Lab: Notes/Report: [facility] ([facility]) [address] [place] [address] [address]Iqub Patient Name: Tavo Wallis : 1940 [facility] C Sterile BSSee Below For Report Final [...] date:04/20/2024 08:42:56 AM Interpretation: Performing Lab: Notes/Report: [place] [address] [facility] GFR52>=60 mL/min/1.73m? [facility] have implemented the eGFR calculation approach [...] date:04/20/2024 08:42:56 AM Interpretation: Performing Lab: Notes/Report: [address] [place], [place] [address]ZLN1.94.5-11.0 x10*3/mcLRBC2.964.30-5.80 x10*6/mcLHgb9.313.5- 17.5 g/dLHct27.441.0-53.0 %MCV92.480.0-100.0 fLMCH31.427.0-35.0 mnSLLY89.031.0- 37.0 %Pgxkeufy778332-557 x10*3/ozYGUQ60.111.6-14.8 %Mean Platelet Volume7.26.7- 10.6 fLCBC w/ Diff Reviewed date:04/18/2024 11:33:44 AM Interpretation: Performing Lab: Notes/Report: [place] [address] [place], [place] [address]WBC8.54.5-11.0 x10*3/mcLRBC2.904.30-5.80 x10*6/mcLHgb 8.913.5-17.5 g/dLHct26.841.0-53.0 %MCV92.680.0-100.0 fLMCH30.627.0-35.0 pgMCHC 33.131.0-37.0 %Tilwkkkv042984-672 x10*3/ujSLUY81.111.6-14.8 %Mean Platelet Volume6.96.7-10.6 fLMagnesium Reviewed date:04/20/2024 08:42:56 AM Interpretation: Performing Lab: Notes/Report: [address] [address]Alhjbkmoi Lvl2.11.7-2.4 mg/dLDiff Auto Reviewed date:04/18/2024 11:33:44 AM Interpretation: Performing Lab: Notes/Report: [address] [address]Komnbo Auto53.747.2-70.8 %Lymph Auto32.027.2-40.8 %[place] Auto9.7 4.7-13.9 %Eos Auto4.00.0-6.1 %Basophil Auto0.60.0-1.2 %Neutro Absolute4.51.8-7.7 x10*3/mcLLymph Absolute2.71.0-4.8 x10*3/mcLMono Absolute0.80.3-1.1 x10*3/mcLEos Absolute0.30.0-0.4 x10*3/mcLBaso Absolute0.10.0-0.2 x10*3/mcLRespiratory Pathogens Panel Reviewed date:04/20/2024 08:42:56 AM Interpretation: Performing Lab: Notes/Report: [place] [address] [place], [place] [address]Influenza ANot DetectedNot DetectedInfluenza A/H1Not DetectedNot DetectedInfluenza A/H3Not DetectedNot DetectedInfluenza BNot DetectedNot DetectedRSV ANot DetectedNot DetectedRSV BNot DetectedNot Detected Adenovirus.Not DetectedNot DetectedhMPVNot DetectedNot DetectedParainfluenza 1 Not DetectedNot DetectedParainfluenza 2Not DetectedNot DetectedParainfluenza 3 Not DetectedNot DetectedParainfluenza 4Not DetectedNot DetectedRhinovirusNot DetectedNot DetectedDue to the genetic similarity between human rhinovirus and enterovirus, some strains of enterovirusmay be detected as rhinovirus by this assay.Bordatella para/bronchNot DetectedNot DetectedBordatella pertussisNot DetectedNot DetectedBordatella holmesiiNot DetectedNot Detected Testing was performed using nucleic acid amplification including Influenza A, Influenza A/H1, Influenza A/H3, Influenza B, RSV A, RSV B, Adenovirus, Human Metapneumovirus, Parainfluenza 1, 2, 3, 4, Rhinovirus, Bordatella parapertussis / bronchiseptica, Bordatella holmesii, Bordatella pertussis. Results from the [facility] Respiratory Pathogens Panel should be interpreted with [...] Influenza A and / or Influenza B. XR Chest 1 View Reviewed date:04/18/2024 11:33:44 AM Interpretation: Performing Lab: Notes/Report: Patient Name: Tavo Wallis CLINICAL HISTORY: Worsening dyspnea.Basic Metabolic Profile Reviewed date:04/20/2024 08:42:56 AM Interpretation: Performing Lab: Notes/Report: [place] [address] [address] [facility] Kay093148-626 mmol/LPotassium Lvl3.83.4-4.8 mmol/EKntmgebu7707-494 mmol/VFV10062-81 mmol/LAnion Bjj56-74Idnpnqy Txt0503-54 mg/qLUMI191-70 mg/dLCreatinine Lvl1.370.61-1.24 mg/dLBUN Crea Ratio14.610.0-20.0 Calcium Lvl8.58.5-10.3 mg/dLDiff Auto Reviewed date:04/20/2024 08:42:56 AM Interpretation: Performing Lab: Notes/Report: [address], [place] [address]Rfedzh Auto50.147.2-70.8 %Lymph Auto32.327.2-40.8 %[place] Auto 11.24.7-13.9 %Eos Auto5.90.0-6.1 %Basophil Auto0.50.0-1.2 %Neutro Absolute3.5 1.8-7.7 x10*3/mcLLymph Absolute2.21.0-4.8 x10*3/mcLMono Absolute0.80.3-1.1 x10*3/mcLEos Absolute0.40.0-0.4 x10*3/mcLBaso Absolute0.00.0-0.2 x10*3/mcLCBC w/ Diff Reviewed date:04/20/2024 08:42:56 AM Interpretation: Performing Lab: Notes/Report: [address] [address]UHR5.04.5-11.0 x10*3/mcLRBC2.934.30-5.80 x10*6/mcLHgb9.113.5- 17.5 g/dLHct27.241.0-53.0 %MCV92.980.0-100.0 fLMCH31.127.0-35.0 ppAPLX94.531.0- 37.0 %Dhvmpjlg796835-394 x10*3/swLHFF01.611.6-14.8 %Mean Platelet Volume7.06.7- 10.6 fLDiff Auto Reviewed date:04/20/2024 08:42:56 AM Interpretation: Performing Lab: Notes/Report: [address], [place] [address]Kgmkqu Auto49.447.2-70.8 %Lymph Auto32.327.2-40.8 %[place] Auto9.0 4.7-13.9 %Eos Auto8.70.0-6.1 %Basophil Auto0.60.0-1.2 %Neutro Absolute3.01.8-7.7 x10*3/mcLLymph Absolute1.91.0-4.8 x10*3/mcLMono Absolute0.50.3-1.1 x10*3/mcLEos Absolute0.50.0-0.4 x10*3/mcLBaso Absolute0.00.0-0.2 x10*3/mcLMagnesium Reviewed date:04/20/2024 08:42:56 AM Interpretation: Performing Lab: Notes/Report: [facility] [address] [place], [place] [address]Ijsrwffwl Lvl2.11.7-2.4 mg/dLBasic Metabolic Profile Reviewed date:04/20/2024 08:42:56 AM Interpretation: Performing Lab: Notes/Report: [facility] [address] [place], [place] [address]Xmdndl Jxg326958-971 mmol/LPotassium Lvl3.73.4-4.8 mmol/L Opieodtf2504-241 mmol/PDO32683-52 mmol/LAnion Anz70-86Ezxpuhr Ybv0713-52 mg/dL AWX645-18 mg/dLCreatinine Lvl1.250.61-1.24 mg/dLBUN Crea Ratio15.210.0-20.0 Calcium Lvl8.68.5-10.3 mg/dL.eGFR Reviewed date:04/20/2024 08:42:56 AM Interpretation: Performing Lab: Notes/Report: [address] [place] [address] [facility] GFR57[facility]60 mL/min/1.73m? [facility] have implemented the eGFR calculation approach [...] of SCr/? or 1 Age = years Reason For Referral Reason BONE STIM Diagnosis 1 Anterolisthesis of l umbar spine (M43.16) Referral Organization [facility] Referring Provider First Name Seljacinton Referring Provider Last Name [place] Referring Provider Speciality Orthopedic Surgery Referred Organization [facility] Referred Address [address] [place], [place],[address], General Notes Viridiana Mehta 02/10/2024 11:35:01 AM > ALL CLINICAL SENT TO [facility] FOR BONE STIM Referral Priority Routine Reason NO AUTH REQ......... .............................NOT SCHEDULED.................................MCR/ANTHEM MRI LUMBAR TO BE DONE AT [facility] Diagnosis 1 Aftercare following surgery of the musculoskeletal system (Z47.89) Referral Organization [facility] Referring Provider First Name Randi Referring Provider Last Name [place] Referring Provider Speciality Orthopedic Surgery Referred Organization [facility] Scheduling Referred Address [address] [place], [place],[address],[place] Procedure 1 MRI Lumbar Spine w/o Dye (79898) General Notes Ania Gilmore 2024 10:07:48 AM >, Shobha Stanton 03/23/2024 10:13:34 AM > MEDICARE PARTS A & B ACTIVE AND EFFECTIVE 07/05/06 PER [facility] WITH ANTHEM SECONDARY. NO AUTHORIZATION REQUIRED. FAXED TO FACILITY.Anthony Sara 03/26/2024 11:58:10 AM > order faxed Referral Priority Routine Reason NO AUTH REQ..............................04/13/24................................MCR/ANTHE M LUMBAR I & [place] [address] [place] [address] [place] [address] no dictation available Diagnos is 1 Wound dehiscence (T81.30XA) Referra l [facility] Referri ng Provide r First Name Randi Agarwal ng Provide r Last Name [facility] Referjovanni austin Provide r Special ity Orthopedic Surgery Referre d [facility] Inpatient Referre d Address [address] [place], [place],[address],[place] Procedu re 1 Incision and drainage of hematoma seroma or fluid collection (23695) Procedu re 2 Incision and drainage complex po wound i nfection (23516) Procedu re 3 Secondary closure surgical wound or dehi scence, ext or comp (06349) General Notes Ania Gilmore 04/12/2024 02:02:58 PM >, Ania Gilmore 04/12/2024 02:41:05 PM >PATIENT WAS SEEN IN THE OFFICE 03/23, MRI ORDERED AND BEING SEEN IN THE OFFICE TOMORROW, Shobha Stanton 04/12/2024 02:45:29 PM > MEDICARE PARTS A & B ACTIVE AND EFFECTIVE 07/05/06 PER [facility] WITH [employer]M SECONDARY. NO AUTHORIZATION REQUIRED. FAXED TO [facility]., Ania Gilmore 04/16/2024 09:09:49 AM >SURGERY WAS CANCELLED. PATIENT ADMITTED FOR OTHER ISSUES AND THEN TRANSFERRED TO [facility] AND WILL BE DONE TOMORROW MORNING, Shobha Stanton 04/16/2024 09:14:49 AM > NOTED, THANK YOU. Referra l Priorit y Stat Medications Medication SIG (Take, Route, Frequency, Duration) Notes Start Date End Date Status Oxycodone Activepotassium chlorideActivelevothyroxineActivemagnesium oxideActivebumetanide ActiveeszopicloneActiveatorvastatinActiveallopurinolActiveEliquisActivetraZODone ActiveFlexeril 10 mg1 tab(s) orally 3 times a day5Activepramipexole ActiveFlexeril 10 mg1 tab(s) orally 3 times a day prn muscle udzgky3804/22/2023 Active Social History Tobacco Use: Social History [...] Status Risk Notes Problem History of arthrodesis (049028777) Arthro desis status (Z98.1) ActiveconfirmedProblemDehiscence of surgical wound (07877508)Disruption of external operation (surgical) wound, 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, initial encounter (T81.31XA)ActiveconfirmedProblemPostoperative seroma (950936490)Postprocedural seroma of skin and subcutaneous tissue following other procedure (L76.34)Active confirmedProblemArachnoiditis (3526565)Arachnoiditis (G03.9)Activeconfirmed ProblemSpinal stenosis of lumbar region (89443291)Spinal stenosis, lumbar region without neurogenic claudication (M48.061)ActiveconfirmedProblemNeurogenic claudication (875633971)Lumbar stenosis with neurogenic claudication (M48.062) ActiveconfirmedProblemLeft foot drop (finding) (375856541181589)Acquired left foot drop (M21.372)ActiveconfirmedProblemEncounter for other orthopedic aftercare (Z47.89)ActiveconfirmedProblemAcquired spondylolisthesis (395550192) Anterolisthesis of lumbar spine (M43.16)ActiveconfirmedProblemBilateral sacral insufficiency fracture (disorder) ([id number])Sacral insufficiency fracture with routine healing, subsequent encounter (M84.48XD)Activeconfirmed ProblemOther intervertebral disc degeneration, lumbar region with discogenic back pain and lower extremitypain (M51.362)Activeconfirmed Encounters Encounter Location Date Provider Diagnosis [facility] [address] [place] [id number] 02/17/2024 Gustabo Diglio Anterolisthesis of lumbar spine M43.16 ; Lumbar stenosis with neurogenic claudication M48.062 and Other intervertebral disc degeneration, lumbar region with discogenic back pain and lower extremity pain M51.362 [facility] Out[facility] [address] [place], [place] [id number] 02/21/2024 Selvon Dayton Spinal stenosis, lumbar region without neurogenic claudication M48.061 ; Other intervertebral disc degeneration, lumbar region with discogenic back pain and lower extremity pain M51.362 ; Anterolisthesis of lumbar spine M43.16 and Acquired left foot drop M21.372 [facility] [address] [place] [address] 03/09/2024 [facility] Encounter for other orthopedic aftercare Z47.89 and Arthrodesis status Z98.1 [facility] [employer] [facility] [place] [address] [place] [address] 03/23/2024 Maxine [facility] Disruption of external operation (surgical) wound, 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, initial encounter T81.31XA ; Postprocedural seroma of skin and subcutaneous tissue following other procedure L76.34 ; Encounter for other orthopedic aftercare Z47.89 and Arthrodesis status Z98.1 [facility] [address] [employer] [facility] [place] [address] [place] [address] 04/13/2024 Gustabo Diglamonto Wound dehiscence T81.30XA [facility] [address] [place], [place] [id number] 04/17/2024 Randi Burris 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 (surgical) wound, 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, initial encounter T81.31XA [facility] [address] [facility] [place] [address] [place] [address] 05/11/2024 [facility] Encounter for other orthopedic aftercare Z47.89 ; Disruption of external operation (surgical) wound, 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, initial encounter T81.31XA and Arthrodesis status Z98.1 [facility] [place] [address] [place] [address] 02/14/2024 [facility] [address] [place] [address]/ [place] [address] [place] [address]/[facility] Assessments Encounter Date Diagnosis (ICD Code) Assessment Notes Treatment Notes Treatment Clinical Notes Section Notes 02/17/2024 Lumbar stenosis with neurogenic claudication (ICD-10 - M48.062) 02/17/2024nterolisthesis of lumbar spine (ICD-10 - M43.16)02/21/2024Spinal stenosis, lumbar region without neurogenic claudication (ICD-10 - M48.061) 02/21/2024Other intervertebral disc degeneration, lumbar region with discogenic back pain and lower extremitypain (ICD-10 - M51.362)03/09/2024rthrodesis status (ICD-10 - Z98.1)1. 2 weeks s/p L2-5 revision decompression/yrmzao5503/09/2024 Encounter for other orthopedic aftercare (ICD-10 - Z47.89)1. 2 weeks s/p L2-5 revision decompression/xgpmph5403/23/2024Disruption of external operation (surgical) wound, 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, initial encounter (ICD-10 - T81.31XA)1. 4 weeks s/p L2-5 revision decompression and zeizbn1503/23/2024 Postprocedural seroma of skin and subcutaneous tissue following other procedure (ICD-10 - L76.34)1. 4 weeks s/p L2-5 revision decompression and curdob6304/13/2024 Wound dehiscence (ICD-10 - T81.30XA)1. 6-week status post lumbar decompression and noninstrumented fusion with postoperative fluid collection, wound drainage and wound gyubvivnqu01/11/2025Disruption of external operation (surgical) wound, not elsewhere [...] months s/p L2-5 decompression and noninstrumented fusion 5Arthrodesis status (ICD-10 - Z98.1) 1. 3 weeks s/p I&D with seroma evacuation 2. 3 months s/p L2-5 decompression and noninstrumented fusion 03/23/2024Encounter for other orthopedic aftercare (ICD-10 - Z47.89)1. 4 weeks s/p L2-5 revision decompression and oopzgq5802/21/2024nterolisthesis of lumbar spine (ICD-10 - M43.16)02/17/2024Other intervertebral disc degeneration, lumbar region with discogenic back pain and lower extremitypain (ICD-10 - M51.362) 02/21/2024cquired left foot drop (ICD-10 - M21.372)03/23/2024rthrodesis status (ICD-10 - Z98.1)1. 4 weeks s/p L2-5 revision decompression and qflens2002/17/2024 OtherA lumbosacral corset brace has been ordered today [...] regards, 1. 2 weeks s/p L2-5 revision decompression/hzcrhm4703/23/2024Other Plan established by Dr. Man. Patient evaluated [...] 4 weeks s/p L2-5 revision decompression and rrkqly0904/13/2024Other Plan established by Dr. Man. At this [...] postoperative fluid collection, wound drainage and wound /07/2025 Other Overall patient is starting to improve. Infectious disease is going to extend his meropenem IV for 1 more week and then reassess as there is a very small area of dehiscence still with some drainage. Patient will continue with his LSO brace and physical therapy at the [facility]. I did refill his Flexeril [...] Date Lumbar spine, 4v flex ext - 45906 2023 Lumbar spine 2v ap and lat - 44899 05/11 Surgery Scheduling 01/25/2024 Surgery Scheduling 04/12/2024 DME - Lumbar Support, Surgical OTS 02/16 GRD-Compression stockings:thigh-high OTS 03/09/2024 BONE STIMULATOR 02/17/2024 MRI : Lumbosacral Spine W/O Contrast - 7 8 03/23/2024 Future Test Test Name Order Date Chest 2 views - 63083 01/25/2024 CBC 01/25/2024 Type and Screen Blood Type 01/25/2024 PT/PTT 01/25/2024 BMP 01/25/2024 MRSA (Bilateral Nares) PCR 01/25/2024 EKG 01/25/2024 Insurance Providers Payer Name Payer Address Payer Phone Subscriber Number Group Number Insured Name Patient Relationship to Insured Coverage Start Date Coverage [place] [address] [place] [address] [id number] DAMION WALLIS JRelf - patient is the insuredAnthemPO [address] [place] [id number] JR, WILLIAMSelf - patient is the insured Medical (General) History Medical History History ICD Code High Blood Pressure Abnormal Heart RhythmThyroid diseaseStomach ulcersCancer spineKidney stones OsteoarthritisRheumatoid arthritisBleeding DisordersSurgical History Surgery Date(Month/Year) Rotator cuff surgery
--- OUTSIDE RECORDS SUMMARY | 2025-01-25 10:35 | XMS_ITS | Clinical Summary ---
Author Organization [facility] Address [address] [place] [address] Care Team Providers Care Senior Systems Developer Name Role Phone Unavailable Primary Care Provider Unavailabl e Encounters DateTypeDepartmentCare HhyeMfnepgkrhrq09/20/2025bstract [facility] [address] [place] [address] Unallocated, [facility] MD Josee from Last 3 Months Social History Tobacco UseTypesPacks/DayYears UsedDateSmoking Tobacco: Never AssessedSex and Gender InformationValueDate RecordedSex Assigned at BirthNot on fileLegal Sex Male05/19/2022 6:54 PM EDTGender IdentityNot on fileSexual OrientationNot on file Plan of Treatment Not on file Insurance
--- OUTSIDE RECORDS SUMMARY | 2025-01-25 10:35 | XMS_ITS | Continuity of Care Document ---
Author Organization [facility] Address [address] [place], [place] [id number] Insurance Providers Payer Plan Claims Address Claims Phone Policy Number Group Number Relation Employer Guarantor Name Guarantor Guarantor Address Guarantor Phone [facility] [address], [place], [place] [id number] Linda Slaterborisroel, Kellie [place], [place] [address] [address], [place], [place] [address]jxh:[phone] [id number] Jadynroel, Nelli Maurer [place], [place] [address] [address] [address], [place], [place] [id number] Irineo Randell, [place] [address] Problems Condition ICD9 code ICD10 code SNOMED code Start Date End Date S tatus Encephalopathy, unspecified G93.4015ActiveObstructive and reflux uropathy, xcsoyiihgkkJ28.9 5ActiveBenign prostatic hyperplasia with lower urinary tract symptoms N40.1105ActiveAcute kidney failure, hxexysvhnloV90.915Active Cellulitis of right lower limbL03.733765ActiveUrinary tract infection, site not tlxhqmmcrW50.0105ActivePressure ulcer of right heel, stage 2 L89.171305ActiveBenign neoplasm of spinal dnhmvgsoF32.1105Active Anemia, oqgpnpczatrW09.910/29/2025ActivePure hypercholesterolemia, unspecified E78.0010tiveInsomnia, gncbgoapwubZ44.001tiveSleep apnea, vxcbhrkttwmZ15.3010tiveHypothyroidism, xauolvpkwjtQ22.91 ActiveTinnitus, unspecified earH93.191tiveUnspecified ixklpysfK90.9 10tiveLongstanding persistent atrial ltgfzutgykbuI52.1110 ActiveCardiomyopathy, piqxhtrkbevH28.91tivePeripheral vascular disease, hdvqhijiluwZ91.91tivePleural effusion, not elsewhere voiaraoberK8589tiveDiverticulum of esophagus, dmhlnbdlG74.510 ActiveGastric ulcer, unspecified as acute or chronic, without hemorrhage or yhrexyljdqrJ67.91tiveAcute on chronic diastolic (congestive) heart pzwdilsQ28.3310tiveGout, lffyykpvuqyM69.91tiveLow back pain, qfjyqgegxdbR06.5010tiveUnspecified osteoarthritis, unspecified siteM19.9010tiveSynovial cyst of popliteal space [[place]], unspecified kneeM71.tiveChronic kidney disease, yvgtmnpqolqW81.91 ActiveAltered mental status, cfgbuvtnrwaJ33.8210tivePresence of unspecified artificial hip ycsmoT34.36155tiveRheumatoid arthritis with rheumatoid factor of multiple sites without organ or systems lgenpucrftxK10.79 01/04/2025tiveOther specified postprocedural qvrjrkR30.47132tive Chronic peptic ulcer, site unspecified, without hemorrhage or fydlrwboltqJ81.7 01/04/2025tiveFoot drop, left footM21.49364tiveSpinal stenosis, lumbar region with neurogenic qnqypmparojiS36.26701tiveOther intervertebral disc degeneration, lumbar region with discogenic back pain and lower xnihburkmqenoU24.644955ActiveAge-related osteoporosis without current pathological xilwxgurV04.0105ActiveUnspecified kyphosis, site epbqgnhqrkxE63.987705ActiveRetention of urine, evflzwhlrygV49.91 ActivePersonal history of other diseases of the circulatory xaitgeF66.79 01/04/2025tiveWedge compression fracture of first lumbar vertebra, subsequent encounter for fracture with obelzaonvbqlmiQ57.010D095ActiveShortness of zmicuuB04.0215336KwvimnZolrnzrubrsL45.610tiveNutritional deficiency, oxdzjbkeitwL21.91tiveMuscle weakness (generalized)M62.81 01/05/2025tiveCandidiasis of skin and nailB37.tiveDifficulty in walking, not elsewhere wgblwtrovwJ27.211tiveDysphagia, unspecified R13.1011tiveOther speech aodkioxhfgauR67.8901/07/2025tiveMethicillin resistant Staphylococcus aureus infection, unspecified siteA49.021 ActiveHypo-osmolality and vtkqzmdrlcxnT01.1115Active Results Test Result Date/Time Value / Unit Interp. Refere nce Range Tuberculosis reaction wheal[ 99181-1] Tuberculosis reaction wheal [93772-8] 01/16/2025 05:00 PM 0 mm NEG Tuberculosis reaction wheal[69817-0]?Tuberculosis reaction wheal [83081-3]01/16/2025 05:00 PMSee noteTB testTuberculosis reaction wheal[87570-4]?Tuberculosis reaction wheal [50187-0]01/04/2025 10:46 AM 0 mmNEG Allergies, adverse reactions, alerts Substance Reaction Date Status Type No allergies have been recorded Non SkcqGkoxyz34/31/2025Non Orgealoslwrs97/31/2025Non PcqwQakonxx16/31/2025Non DrugPenicillins (PCN)01/04/2025Non Drug Immunizations Vaccine Route Date Status COVID-19 Vaccine Unassigned Route of Administration Completed COVID-19 Vaccine Unassigned Route of Administration Completed COVID-19 Vaccine Unassigned Route of Administration Completed COVID-19 Vaccine Unassigned Route of Administration Completed COVID-19 Vaccine Unassigned Route of Administration Completed COVID-19 Vaccine Unassigned Route of Administration Completed COVID-19 Vaccine Unassigned Route of Administration Refused Influenza Vaccine Unassigned Route of Administration 1 03/27/2024 Completed Medications Medication Instructions Route Dosage Frequency [...] HCl)1 tab, oral, Once A Dayoral1.0 1.0 d15103/10/2024Peripheral vascular disease, unspecifiedActiveZosyn in dextrose (iso-osm) (mahczvylbwiy-plihhlxpba-oenyht) 3.375 gram/50 mL piggyback (Zosyn in dextrose (iso-osm) (huaxozrlttcf-gzyqndlxcc-nwzevm))3.375 gram, intravenous, Three Times A Dayintravenous1.08.0 h1511/07/2024Urinary tract infection, site not specifiedActivebudesonide 0.5 mg/2 mL suspension for nebulization (budesonide)2 ml, inhalation, Twice A Dayinhalation1.012.0 h 01/04/2025Shortness of breathActivefluconazole 200 mg tablet (fluconazole)1 tab, oral, Once A Dayoral1.01.0 d1511/andidiasis of skin and nail Activeheparin (porcine) 5,000 unit/mL solution (heparin (porcine))5,000 units, injection, Twice A Day1.012.0 h15103/10/2024Longstanding persistent atrial fibrillationActiveipratropium-albuterol 0.5 mg-3 mg(2.5 mg base)/3 mL solution for nebulization (ipratropium-albuterol)3 ml, inhalation, Every 8 Hours - PRN, wheezinginhalation1.08.0 01/04/2025Shortness of breathActive levothyroxine 150 mcg tablet (levothyroxine)1 tablet, oral, Once A Dayoral1.01.0 01/04/2025Hypothyroidism, unspecifiedActiveMagOx (magnesium oxide) 400 mg (241.3 mg [...] Day, constipationoral1.0 1.0 d15ActiveZosyn in dextrose (iso-osm) (wxfqcmxeecyd-sewdmvpvqd-uszhia) 3.375 gram/50 mL piggyback (Zosyn in dextrose (iso-osm) (tjbhloobdlkr-hfxtaqbhtc-bzblsr))3.375 gram, intravenous, Three Times A Dayintravenous1.08.0 h1/5Cellulitis of right lower limbActive Normal Saline Flush (sodium chloride 0.9 % (flush)) - syringe (Normal Saline Flush (sodium chloride0.9 % (flush)))10mL, injection, Flush before and after IV medication, flush with 10 mL NS prior to medication administration and 10mL NS after medication is complete1.08.0 h1511/5ActiveZosyn in dextrose (iso-osm) (owqkszpzvdqw-woemudbarh-ojftsl) 3.375 gram/50 mL piggyback (Zosyn in dextrose (iso-osm) (egxqhiqhybvh-smdmcsjfey-paunqk))3.375 gram, intravenous, Three Times A Dayintravenous1.08.0 h1/20240307/5Cellulitis of right lower limbActiveZosyn in dextrose (iso-osm) (qslbjlqtuizf-qepmdtstfk-iturhw) 3.375 gram/50 mL piggyback (Zosyn in dextrose (iso-osm) (ikzzwlsdsrqw-dodlabsarj-iyonbc))3.375 gram, intravenous, Three Times A Day intravenous1.08.0 h103/08/318152/5Cellulitis of right lower limbActiveZosyn in dextrose (iso-osm) (eozkufusflcb-qwejzrxxor-jjagwi) 3.375 gram/50 mL piggyback (Zosyn in dextrose (iso-osm) (gmmrxfdssyny-tlbemqzkdz-iewxha))3.375 gram, intravenous, Three Times A Dayintravenous1.08.0 h103/08/225885/08/2024 Cellulitis of right lower limbActivefluconazole 200 mg tablet (fluconazole)1 tab, oral, Once A Dayoral1.01.0 d1511/5Candidiasis of skin and nailActiveZyvox (linezolid) 600 mg tablet (Zyvox (linezolid))1 tab, oral, Twice A Day, MRSA rt. heeloral1.012.0 h103/09/153290/5Activediltiazem HCl 120 mg capsule,extended release 12 hr [...] within 1 hour of administering Enemeez, contact provider.rectal1.01.0 d 515ActiveMiralax (polyethylene glycol 3350) 17 gram/dose powder (Miralax (polyethylene glycol 3350))17gm (1 capful), oral, Once A Day - PRN, Step 1: If no BM by Day 2, Mix 17gm (1 capful) in 4-8oz beverage of choice in the morning. Indication for use: Constipationoral1.01.0 d1511/10/2024 ActiveSantyl (collagenase clostridium histo.) 250 unit/gram ointment (Santyl (collagenase clostridium histo.))nickel thick, topical, Once A Day, Apply to right heel and cover with foam dressing dailytopical1.01.0 d1511/ Activesodium chloride 1,000 mg tablet,soluble (sodium chloride)2 tablets, miscellaneous, Once A Day1.01.0 d103/18/2024Hypo-osmolality and hyponatremia Activebumetanide 1 mg tablet (bumetanide)1 tablet, oral, Once A Dayoral1.01.0 d 01/16/2025Pleural effusion, 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ActiveEnemeez (docusate sodium) 283 mg/5 mL enema (Enemeez (docusate sodium))1 enema, rectal, Once A Day - PRN, Step 3: If no BM by morning of day 4, administer 1 Enemeez MicroEnema in the morning. Indication for use: ConstipationStep 4: If no BM within 1 hour of administering Enemeez, contact provider.rectal1.01.0 d15ActiveMiralax (polyethylene glycol 3350) 17 gram/dose powder (Miralax (polyethylene glycol 3350))17gm (1 capful), oral, Once A Day - PRN, Step 1: If no BM by Day 2, Mix 17gm (1 capful) in 4-8oz beverage of choice in the morning. Indication for use: Constipationoral1.01.0 d15ActiveSantyl (collagenase clostridium histo.) 250 unit/gram ointment (Santyl (collagenase clostridium histo.))nickel thick, topical, Once A Day, Apply to right heel and cover with foam dressing dailyWound measurement : 2.9 cm X 0.9 cmtopical1.01.0 d15Activebaclofen 10 mg tablet (baclofen)1 tablet, oral, Three Times A Day - PRNoral1.08.0 h103/24/2024 Other intervertebral disc degeneration, lumbar region with discogenic back pain and lower extremitypainActiveFluzone High-Dose 2024- (PF) (flu vacc kq5729- 26(65yr up)-pf) 180 mcg/0.5 mL syringe (Fluzone High-Dose (PF) (flu vacc pl7399-13(65yr up)-pf))0.5ml, intramuscular, Once - One Timeintramuscular1.0 515Active Vital Signs Date Vital Result Comment 01/04/2025 04:37 PM Temperature (8310-5) 98.3 [degF] Oxygen Saturation (73152-1)96 %Respiratory Rate (9279-1)18 /minHeart Rate (8867-4)64 /minBlood Pressure Systolic (8480-6)128 mm[Hg]Blood Pressure Diastolic (8462-4)72 mm[Hg]01/04/2025 03:43 PMTemperature (8310-5)97.9 [degF] Oxygen Saturation (26555-7)98 %Respiratory Rate (9279-1)16 /minHeart Rate (8867-4)78 /minBlood Pressure Systolic (8480-6)110 mm[Hg]Blood Pressure Diastolic (8462-4)54 mm[Hg]Body Height (8302-2)67 [in_us]01/05/2025 08:57 AM Temperature (8310-5)98.1 [degF]Oxygen Saturation (18145-4)98 %Respiratory Rate (9279-1)16 /minHeart Rate (8867-4)89 /minBlood Pressure Systolic (8480-6)133 mm[Hg]Blood Pressure Diastolic (8462-4)69 mm[Hg]01/05/2025 10:27 AMTemperature (8310-5)98.9 [degF]Oxygen Saturation (98913-9)97 %Respiratory Rate (9279-1)18 /minHeart Rate (8867-4)78 /minBlood Pressure Systolic (8480-6)126 mm[Hg]Blood Pressure Diastolic (8462-4)76 mm[Hg]01/05/2025 10:05 PMTemperature (8310-5)97.9 [degF]Oxygen Saturation (79642-1)97 %Respiratory Rate (9279-1)18 /minHeart Rate (8867-4)74 /minBlood Pressure Systolic (8480-6)138 mm[Hg]Blood Pressure Diastolic (8462-4)78 mm[Hg]01/06/2025 01:05 PMTemperature (8310-5)98.6 [degF] Oxygen Saturation (33059-8)95 %Respiratory Rate (9279-1)18 /minHeart Rate (8867-4)68 /minBlood Pressure Systolic (8480-6)132 mm[Hg]Blood Pressure Diastolic (8462-4)78 mm[Hg]01/06/2025 11:20 PMTemperature (8310-5)98.1 [degF] Oxygen Saturation (29084-5)95 %Respiratory Rate (9279-1)18 /minHeart Rate (8867-4)70 /minBlood Pressure Systolic (8480-6)140 mm[Hg]Blood Pressure Diastolic (8462-4)79 mm[Hg]01/07/2025 11:30 AMTemperature (8310-5)98 [degF] Oxygen Saturation (79630-2)95 %Respiratory Rate (9279-1)18 /minHeart Rate (8867-4)82 /minBlood Pressure Systolic (8480-6)115 mm[Hg]Blood Pressure Diastolic (8462-4)61 mm[Hg]01/07/2025 11:09 AMBody Weight (55194-8)186.2 [lb_av] Body Mass Index (90229-6)29.16 kg/m201/08/2025 01:29 AMTemperature (8310-5)98 [degF]Oxygen Saturation (08634-1)95 %Respiratory Rate (9279-1)18 /minHeart Rate (8867-4)75 /minBlood Pressure Systolic (8480-6)123 mm[Hg]Blood Pressure Diastolic (8462-4)62 mm[Hg]01/08/2025 05:35 AMTemperature (8310-5)98 [degF] Respiratory Rate (9279-1)18 /minHeart Rate (8867-4)74 /minBlood Pressure Systolic (8480-6)155 mm[Hg]Blood Pressure Diastolic (8462-4)80 mm[Hg]01/08/2025 09:32 AMBlood Pressure Systolic (8480-6)136 mm[Hg]Blood Pressure Diastolic (8462-4)83 mm[Hg]01/08/2025 09:27 AMTemperature (8310-5)98.5 [degF]Oxygen Saturation (53452-4)94 %Respiratory Rate (9279-1)18 /minHeart Rate (8867-4)84 /min01/08/2025 12:09 PMTemperature (8310-5)98.5 [degF]Oxygen Saturation (44496-2)94 %Respiratory Rate (9279-1)18 /minHeart Rate (8867-4)84 /minBlood Pressure Systolic (8480-6)136 mm[Hg]Blood Pressure Diastolic (8462-4)83 mm[Hg] 01/09/2025 10:30 AMTemperature (8310-5)98 [degF]Oxygen Saturation (12492-6)96 % Respiratory Rate (9279-1)18 /minHeart Rate (8867-4)66 /minBlood Pressure Systolic (8480-6)116 mm[Hg]Blood Pressure Diastolic (8462-4)53 mm[Hg]01/10/2025 10:35 AMTemperature (8310-5)98.2 [degF]Oxygen Saturation (06490-9)95 % Respiratory Rate (9279-1)18 /minHeart Rate (8867-4)63 /minBlood Pressure Systolic (8480-6)104 mm[Hg]Blood Pressure Diastolic (8462-4)53 mm[Hg]01/11/2025 09:41 AMTemperature (8310-5)98.3 [degF]Oxygen Saturation (09818-8)97 % Respiratory Rate (9279-1)18 /minHeart Rate (8867-4)75 /minBlood Pressure Systolic (8480-6)144 mm[Hg]Blood Pressure Diastolic (8462-4)76 mm[Hg]01/12/2025 10:19 AMTemperature (8310-5)98.2 [degF]Oxygen Saturation (60398-8)96 % Respiratory Rate (9279-1)16 /minHeart Rate (8867-4)68 /minBlood Pressure Systolic (8480-6)128 mm[Hg]Blood Pressure Diastolic (8462-4)62 mm[Hg]01/12/2025 12:08 PMTemperature (8310-5)98.2 [degF]Oxygen Saturation (66013-5)96 % Respiratory Rate (9279-1)16 /minHeart Rate (8867-4)68 /minBlood Pressure Systolic (8480-6)128 mm[Hg]Blood Pressure Diastolic (8462-4)62 mm[Hg]01/13/2025 09:41 AMTemperature (8310-5)98 [degF]Oxygen Saturation (04612-7)95 %Respiratory Rate (9279-1)18 /minHeart Rate (8867-4)76 /minBlood Pressure Systolic (8480-6) 110 mm[Hg]Blood Pressure Diastolic (8462-4)71 mm[Hg]01/13/2025 12:06 PM Temperature (8310-5)98 [degF]Oxygen Saturation (71715-3)95 %Respiratory Rate (9279-1)18 /minHeart Rate (8867-4)76 /minBlood Pressure Systolic (8480-6)110 mm[Hg]Blood Pressure Diastolic (8462-4)71 mm[Hg]01/14/2025 09:35 AMTemperature (8310-5)98.2 [degF]Oxygen Saturation (23558-2)93 %Respiratory Rate (9279-1)18 /minHeart Rate (8867-4)74 /minBlood Pressure Systolic (8480-6)137 mm[Hg]Blood Pressure Diastolic (8462-4)63 mm[Hg]01/15/2025 09:35 AMTemperature (8310-5)98.4 [degF]Oxygen Saturation (43530-6)96 %Respiratory Rate (9279-1)18 /minHeart Rate (8867-4)77 /minBlood Pressure Systolic (8480-6)142 mm[Hg]Blood Pressure Diastolic (8462-4)80 mm[Hg]01/15/2025 09:09 PMBody Weight (71408-7)169.8 [lb_av] Body Mass Index (54479-6)26.59 kg/m201/16/2025 11:13 AMTemperature (8310-5)98.1 [degF]Oxygen Saturation (25905-6)96 %Respiratory Rate (9279-1)18 /minHeart Rate (8867-4)77 /minBlood Pressure Systolic (8480-6)138 mm[Hg]Blood Pressure Diastolic (8462-4)75 mm[Hg]01/17/2025 10:42 AMTemperature (8310-5)98.5 [degF] Oxygen Saturation (01835-8)95 %Respiratory Rate (9279-1)16 /minHeart Rate (8867-4)73 /minBlood Pressure Systolic (8480-6)140 mm[Hg]Blood Pressure Diastolic (8462-4)64 mm[Hg]01/17/2025 12:01 PMTemperature (8310-5)98.5 [degF] Oxygen Saturation (56171-2)95 %Respiratory Rate (9279-1)16 /minHeart Rate (8867-4)73 /minBlood Pressure Systolic (8480-6)140 mm[Hg]Blood Pressure Diastolic (8462-4)64 mm[Hg]01/18/2025 10:59 AMTemperature (8310-5)97.7 [degF] Oxygen Saturation (85073-9)96 %Respiratory Rate (9279-1)18 /minHeart Rate (8867-4)70 /minBlood Pressure Systolic (8480-6)107 mm[Hg]Blood Pressure Diastolic (8462-4)59 mm[Hg]01/19/2025 09:21 AMTemperature (8310-5)98 [degF] Oxygen Saturation (79092-3)97 %Respiratory Rate (9279-1)18 /minHeart Rate (8867-4)82 /minBlood Pressure Systolic (8480-6)91 mm[Hg]Blood Pressure Diastolic (8462-4)61 mm[Hg]01/20/2025 10:44 AMTemperature (8310-5)98.2 [degF]Oxygen Saturation (08436-1)97 %Respiratory Rate (9279-1)18 /minHeart Rate (8867-4)73 /minBlood Pressure Systolic (8480-6)97 mm[Hg]Blood Pressure Diastolic (8462-4)57 mm[Hg]01/21/2025 10:27 AMTemperature (8310-5)97.8 [degF]Oxygen Saturation (42329-9)96 %Respiratory Rate (9279-1)16 /minHeart Rate (8867-4)83 /minBlood Pressure Systolic (8480-6)126 mm[Hg]Blood Pressure Diastolic (8462-4)67 mm[Hg] 01/22/2025 09:15 AMTemperature (8310-5)98.2 [degF]Oxygen Saturation (24843-6)96 %Respiratory Rate (9279-1)16 /minHeart Rate (8867-4)80 /minBlood Pressure Systolic (8480-6)132 mm[Hg]Blood Pressure Diastolic (8462-4)79 mm[Hg]01/23/2025 09:33 AMTemperature (8310-5)98.2 [degF]Oxygen Saturation (15710-3)96 % Respiratory Rate (9279-1)16 /minHeart Rate (8867-4)71 /minBlood Pressure Systolic (8480-6)128 mm[Hg]Blood Pressure Diastolic (8462-4)72 mm[Hg]01/22/2025 08:40 PMBody Weight (04883-7)169.5 [lb_av]Body Mass Index (83806-4)26.54 kg/m2 01/24/2025 10:17 AMTemperature (8310-5)98.1 [degF]Oxygen Saturation (12630-5)97 %Respiratory Rate (9279-1)16 /minHeart Rate (8867-4)65 /minBlood Pressure Systolic (8480-6)106 mm[Hg]Blood Pressure Diastolic (8462-4)56 mm[Hg]01/25/2025 09:13 AMTemperature (8310-5)98.3 [degF]Oxygen Saturation (45407-1)95 % Respiratory Rate (9279-1)16 /minHeart Rate (8867-4)75 /minBlood Pressure Systolic (8480-6)110 mm[Hg]Blood Pressure Diastolic (8462-4)80 mm[Hg]01/25/2025 09:12 AMTemperature (8310-5)98 [degF] Social History No smoking Hx information available Encounters Type CPT Code Date Location Provider Indication s encounter report 01/04/2025 11:06 Kirit Bull MD01encounter gqyjid1301/04/2025 01:20 PMMendy Bull MD01 Advance Directives Directive Description Verification Date Supporting Document(s) Resuscitation
--- OUTSIDE RECORDS SUMMARY | 2025-01-25 10:36 | XMS_ITS | Encounter Summary ---
Author Organization [facility] Address [address] [place] [address] Care Team Providers Care Electrical Accessories I Assembler Name Role Phone Unavailable Primary Care Provider Unavailabl e Encounter Details DateTypeDepartmentCare Team (Latest Contact Info)Orjztzabqmb18/20/2025bstract [facility] [address] [place] [id number] Unallocated, [facility], [address] [place] [address] Social History Tobacco UseTypesPacks/DayYears UsedDateSmoking Tobacco: Never AssessedSex and Gender InformationValueDate RecordedSex Assigned at BirthNot on fileLegal Sex Male05/19/2022 6:54 PM EDTGender IdentityNot on fileSexual OrientationNot on filedocumented as of this encounter Plan of Treatment Not on file documented as of this encounter Visit Diagnoses Not on filedocumented in this encounter
--- OUTSIDE RECORDS SUMMARY | 2025-01-25 10:41 | XMS_ITS | CCD ---
Author Organization [facility] ion Partnership [facility] Care Team Providers Care Music Director Name Role Phone Opal Ga Unavailable Unavailable Unavailable Opal Ga Unavailable DO Opal Ga Primary Care Provider AKUA Rodarte Attending Provider [phone] DO Opal Ga Attending Provider DO Opal Ga Primary Care Provider DO Opal Ga Attending Provider MD Frankie Paiz Emergency Provider DO Dharmesh Zavala Admit Provider DO Dharmesh Zavala Attending Provider Shy Mcdonough Other Provider Unavailable DO Meme De La Torre Other Provider MD Mani Dickens Other Provider [phone] DO Matheus Rizvi Other Provider [phone] Antonia ANP- Hoa Other Provider DO Vikas Mane Other Provider RIKY Degroot Other Provider MD Raji Ennis Attending Provider MD Frankie Reynolds Other Provider RIKY Mix Attending Provider DO Opal Ga Attending Provider [phone] Kuns, DO Opal Primary Care Provider Kuns, DO Opal Myers Attending Provider Kuns, [...] Unavailable Tjs, DO Wiggins Primary Care Provider Tjs, DO Wiggins Attending Provider Kuns Opal HARGROVE Primary Care Provider Kuns, DO Opal Primary Care Provider DO Bhupinder Mcintyre Attending Provider [phone] Kuns, DO Wiggins Attending Provider Kuns Opal HARGROVE Primary Care Provider [phone] Opal Ga DO Primary Care Provider JUNE, RANDI F Admitting Unavailable JUNE, MARCELLUSN F Attending Unavailable OPAL GA Primary Care Unavailable ORIANA, OLUREMI A Consulting Unavailable Kuns DO, Opal Primary Care Provider Tjs DOOpal Attending Provider Bunting DO, Sandip R Attending Provider Marcos Martin DO Emergency Provider Amy TIDWELL, Mitchell Admit Provider [phone] Mitchell Reyes MD Attending Provider Michele Knight MD Attending Provider Opal Ga DO Primary Care Provider Randi Batista MD Attending Provider Bunting DO, Sandip Attending Provider Unavailable Primary Care Provider Unavailabl e Bunting DO, Sanidp R Attending Provider Veronica HARGROVE, Marcos Fink Emergency Provider [phone] Daily DO, Opal Primary Care Provider Amy TIDWELL, Mitchell Admit Provider [phone] Michele Knight MD Attending Provider [phone] Randi Batista MD Attending Provider Bunting DO, Sandip Attending Provider [phone] Bunting DO, Sandip R Attending Provider Veronica HARGROVE, Marcos Fink Emergency Provider Daily DOOpal Primary Care Provider [phone] Mitchell Reyes MD Admit Provider Michele Knight MD Attending Provider Randi Batista MD Attending Provider Bunting DO, Sandip Attending Provider Bunting DO, Sandip R Attending Provider [phone] Tjs , Opal Primary Care Provider [phone] Tjs Opal HARGROVE Primary Care Provider [phone] Unavailable Primary Care Provider Unavailleigh ann e Kiera BUNDLE CUTTER, Melvi M Emergency Provider Ramona DO, Sandip R Primary Care Provider [phone] Julian TIDWELL, Mario Admit Provider Julian TIDWELL, Mario Attending Provider Talisha TIDWELL, Keith Other Provider Shane TIDWELL, Vinay Myers Other Provider Trisha Hebert MD Other Provider Walter TIDWELL, Ronald Urbina Other Provider [phone] Lester TIDWELL, Keith Fink Other Provider Marvin TIDWELL, Albert Whitmore Other Provider [phone] Negro TIDWELL, Bayron Other Provider [phone] Laron BALLASTER-C, Nkechi Burnette Other Provider [facility] [place] Other Provider [phone] Gail TIDWELL, Frankie Other Provider Dimitry TIDWELL, Stephanie Attending Provider [phone] Trihsa Heebrt Attending Unavailable Ambar Smumers Attending Unavailable ABYRON TOM Attending Unavail able BAYRON TOM Referring Unavail able Nkechi Larry Attending Unavailable Ambar Summers Attending Unavailable Tye Pompa Attending Unavailable [facility] BUNDLE CUTTER-CREAM GATHERER, Tamar Asencio [facility]ending [facility] Tye Pompa Attending Unavailable [facility] BUNDLE CUTTER-CREAM GATHERER, Tamar Asencio Attending [facility], [facility] BUNDLE CUTTER-CREAM GATHERER, Tamar Asencio Attending U navailable [facility] BUNDLE CUTTER-CREAM GATHERER, Tamar Asencio Attending U navailable Francisco Javier [...] DO, Tavo Be Primary Care Unavai labfrederic [facility], Sandip R Attending Provider Melvi Qureshi APRN Emergency Provider [phone] [facility], Sandip R Primary Care Provider Julian TIDWELL, Mario Admit Provider Keith Woodall MD Other Provider Vinay Lynn MD Other Provider Trisha Hebert MD Other Provider Walter TIDWELL, Ronald Urbina Other Provider Keith Batista MD Other Provider Albert Wong MD Other Provider Negro TIDWELL, Bayron Other Provider Laron ALLEN-C, Nkechi Burnette Other Provider Jason [facility], Ella Other Provider [phone] Frankie Reynolds MD Other Provider Stephanie Moraes MD Attending Provider Julian TIDWELL, Mario Other Provider Itzkowitz DO, Bryce Other Provider Frankie Reynolds MD Attending Provider [phone] Opal Ga DO Primary Care Provider Opal Ga DO Attending Provider NO FAMILY, PHYSICIAN Primary Care Provider Unava ilable Bunting DO, Sandip R Attending Provider Keely Montoya APRN Attending Provider Bunting DO, Sandip R Attending Provider Bhupinder Mcintyre DO Attending Provider Bunting DO, Sandip R Attending Provider [phone] Bunting DO, Sandip R Attending Provider [phone] Julian TIDWELL, Mario Other Provider Itzkofelice DO, Bryce Other Provider Frankie Reynolds MD Attending Provider Opal Ga DO Primary Care Provider [phone] Opal Ga DO Attending Provider NO FAMILY, PHYSICIAN Primary Care Provider Unava ilable Keely Montoya APRN Attending Provider Bhupinder Mcintyre DO Attending Provider Cedric LECHUGA, Terence Roe Emergency Provider Frankie Johnson DO Admit Provider Frankie Johnson DO Attending Provider Ramona DO, Sandip R Attending Provider Franck Gagnon DO Other Provider Jovany Stovall MD Attending Provider [phone] Jovany Stovall MD Other Provider Frankie Johnson DO Attending Provider TAVO MCINTYRE Attending Unavailable OPAL GA Primary Care Unavailable Frankie Reynolds MD Attending Provider Terence Steele PA-C Emergency Provider [phone] Frankie Johnson DO Admit Provider Franck Gagnon DO Other Provider Jovany Stovall MD Attending Provider Jovany Stovall MD Other Provider Frankie Johnson DO Attending Provider Opal Ga DO Attending Provider [phone] Opal Ga DO Primary Care Provider Terence Steele PA-C Emergency Provider [phone] Frankie Johnson DO Admit Provider Franck Gagnon DO Other Provider Jovany Stovall MD Attending Provider Jovany Stovall MD Other Provider Sree Thao DO Emergency Provider Akash Mccartney MD Admit Provider Akash Mccartney MD Attending Provider Opal Ga DO Primary Care Provider Frankie Reynolds MD Attending Provider [phone] Terence Steele PA-C Emergency Provider Frankie Johnson DO Admit Provider Franck Gagnon DO Other Provider Jovany Stovall MD Attending Provider Jovany Stovall MD Other Provider Keely Montoya APRN Attending Provider Sree Thao DO Emergency Provider Akash Mccartney MD Admit Provider Michele Knight MD Attending Provider Opal Ga DO Primary Care Provider Keely Montoya APRN Attending Provider Michele Knight MD Attending Provider Niki BALLASTER-C, Cristy Attending Provider Paul , Liliana Dasilva Attending Provider [phone] [facility] Opal Primary Care Provider [phone] Niki BALLASTER-C, Cristy Attending Provider Marker DO, Liliana Dasilva Attending Provider Clarence Schroeder DO Attending Provider Sha Pepe MD Attending Provider [phone] Bunting, Sandip R Attending Unavailable Bunting, Sandip R Admitting Unavailable Michele Knight Attending Unavailable Opal Ga [facility] Unavailable DoameAkash cody Admitting Unavailab Pauline Murray Consulting Unavailable Pauline Chacon Consulting Unavailable Bhupinder Mcintyre Consulting Unavailable Urena, Marv Consulting Unavailable Traboulssi, Robert Consulting Unavailable Enedelia Gomez Consulting Unavailable AlvarezVerena Consulting Unavailable Renu Kraus Consulting Unavailable Bunting, Sandip R Primary Care Unavailable Mario Jordan Admitting Unavailable SemaStephanie sandres Attending Unavailable Keith Woodall Consulting Unavailable Vinay [...] Sandip Attending Unavailable Michele Knight Attending Unavailable [facility]Cap[facility] Centeran Primary [facility] Unavailable Amy, Mitchell Admitting Unavailable [...] Mcintyre Admitting Unavailable StovallJovany Attending Unavailable Kuns, Opla Primary Care Unavailable Stovall, Jovany E Admitting [...] Attending Unavailable Marker, Liliana Dasilva Admitting Unavailable BrooksideClarence Attending Unavailable [place], Clarence Fink Admitting Unavailable Bunting, Sandip Admitting Unavailable Bunting, Sandip Attending Unavailable Bunting, Sandip R Attending Unavailable Bunting, Sandip R Admitting Unavailable Allergies Allergy ClassificationReported Allergen(s)Allergy TypeDate of OnsetReaction(s) Facility (20 sources)fentaNYL; Translations: [Duragesic-75 PT72]Drug Xguulhs12-25-3588 Dizziness, Nausea OnlyUnTr[facility] (20 sources)Indomethacin; Translations: [Indocin]Drug Tlidviu58-96-1006NapasJZMichael [place] [address] DO Work Phone: (20 sources)Penicillins; Translations: [Penicillins]Allergy to drug (finding) 62-27-6237Gnlji, WeaknessUniversity Hospitals Ahuja Medical CenterComment on above: 10/09/24 - had a penicillin injection prior to a procedure 20-30 years ago and fell down some stairs afterward (20 sources)zolpidem; Translations: [Ambien]Drug Lxqzcji46-09-2966Hfcupfd, Other (See Comments)-[facility]ena [address] DO Work Phone: (20 sources)Penicillin; Translations: [penicillin]Drug Pdcbvph10-32-3039 anaphylaxisUniversity Hospitals Ahuja Medical Center (20 sources)Duragesic-75Drug jkqpwop60-70-7522zpdnktRttsixtnx Regional Medical Center (20 sources)fentaNYL; Translations: [fentaNYL]Drug Zebklhb37-58-7924Ykbehitqd, Dizziness, loopy [facility] (20 sources)Indomethacin; Translations: [INDOMETHACIN]Drug Cvdmpcf59-12-2846 DizzinessUniversity Hospitals Ahuja Medical Center (20 sources)zolpidem; Translations: [ZOLPIDEM]Drug Cuoyzjv61-72-8649Yiugknyor, Confusion, memory lossUniversity Hospitals Ahuja Medical Center (1 source)fentaNYLDrug AllergyThe [facility] Repository (2 sources)PenicillinsDrug allergy (disorder)16-76-7842Czu [facility] (1 source)ProcyclidineDrug AllergyThe [facility]als [facility] Repository (1 source)zolpidemDrug AllergyThe [facility] Repository (4 sources)PenicillinsDrug Scrnogk98-50-3812Opvuh, Mental Status Change [facility] Work Phone: (1 source)Duragesic-25; Translations: [Duragesic-25]Propensity to adverse reactions (disorder)[facility] Repository (1 source)FentaNYL Matrix; Translations: [FentaNYL Matrix]Propensity to adverse reactions (disorder)[facility] Repository (1 source)PenicillinsDrug allergy (disorder)71-54-5027ZcmjcgzdeUniversity Hospitals Ahuja Medical Center Repository Medications Current Medications MedicationDrug Class(es)DatesSig (Normalized)Sig (Original)albuterol 0.833 mg/ml / ipratropium bromide 0.167 mg/ml inhalation solution (20 sources)Anticholinergic, beta2-Adrenergic AgonistStart: 26-57-0837Gvjwg: 32-91-0859xnft 1 mL by inhalation three times dailyStart: 07-12-2024 End: 00-43-5974Ivvnk: 07-12-2024 End: 92-27-2949lcjh 1 mL by inhalation every six hours as needed for wheezing Ipratropium-Albuterol 0.5 mg-3 mg(2.5 mg base)/3 mL solution for nebulization Discontinued 3 ML INHALATION Every 6 hours as needed for shortness of breath or wheezing July 12, 2024 12:00am September 1:59pmazithromycin 250 mg oral tablet (3 sources)Macrolide AntimicrobialStart: 23-98-4176Nqzcyrkpf Z-Jed 250 MG as directed Orally Sep, Activebudesonide 0.25 mg/ml inhalation suspension (4 sources)CorticosteroidStart: 13-09-8173Vwute: 42-37-9332lrhr 0.5 mg by inhalation twice dailybumetanide 1 mg oral tablet (20 sources)Loop DiureticStart: mg, IntraVENous, ONCE, 1 dose, On 02/25/24 at 0900Start: 10-17-2019 End: 12-94-4766Gyccf: 10-17-2019 End: 67-13-3538Xuckm: 01-14-2016 End: 81-19-6866khyn 1 tablet by mouth once dailyBumetanide 1 mg tablet Discontinued 1 MG PO Daily June 06, 2023 12:00am June 06, 2023 3:49pmStart: 70-02-5831sgct 0.5 tablet by mouth once daily as neededBumex 1 MG 0.5 tablet Orally Once a day PRN Jan, ActiveStart: 90-79-5439kepz 1 tablet by mouth every other day as neededBumex 1 MG 1 tablet Orally every other day PRN Jan, ActiveStart: 70-43-9632LNBFK 2 MG TABLET Take one(1) tablet daily. 0 04/07/2004 Activecefdinir 300 mg oral capsule (1 source)Cephalosporin AntibacterialStart: 02-27-2024 End: 18-25-1569hoie 1 capsule by mouth twice dailycefdinir (OMNICEF) [...] mg oral capsule (1 source)Nonsteroidal Anti-inflammatory DrugStart: 18-04-2680MPDIITZC 200 MG CAPSULE Take one(1) capsule daily. 0 04/07/2004 ActiveCompression Pump (20 sources)Start: 86-33-6746Sgqoopslbjm Pump as directed to bilateral lower extremity Q other PM Feb, Activecompression stockings 30-40 mmhg (20 sources)Start: 20-41-7363feluvrmqwel stockings 30-40 mmhg as directed knee high as directed 2 pair 30-40mmhg size xs. 5 gvaris, 923cx5, mt 719706 Sep, ActiveStart: 85-25-6240ouybdkfiwrl stockings 30-40 mmhg as directed knee high as directed 2 pair Sep, ActivedilTIAZem hydrochloride 30 mg oral tablet (3 sources)Calcium Channel BlockerStart: 59-83-9483ocdxgmnooxhi 5 mg oral tablet (1 source)Serotonin Reuptake InhibitorStart: 66-00-9775TRHKVGV 5 MG TABLET take one half daily 0 04/07/2004 Activeglucagon (rdna) 1 mg injection (1 source)Antihypoglycemic AgentStart: 81-16-99399641 ml glucose 100 mg/ml injection (3 sources)Start: 39-59-3727Hcfjb: 56-07-0578eeeixafm bolus 10% 125 mLStart: 97-52-4308Ycjiqaslk (20 sources)Magnesium 400 MG Orally Activetake 1 tablet by mouth once daily Magnesium 400 MG Oral Tablet Take 1 tablet daily Quantity: 0 Refills: 0 Ordered: 05-Jan-2021 DO Activemagnesium oxide 400 mg oral tablet (20 sources)Start: 01-05-2024 End: 28-84-2662upbt 1 tablet by mouth once dailymagnesium oxide (Mag-Ox) 400 mg (241.3 mg magnesium) tablet Indications: Chronic atrial fibrillation (Multi) , Essential hypertension, benign , Non-ischemic cardiomyopathy (Multi) Take 1 tablet (400 mg) by mouth once daily. 90 tablet 3 01/05/2024 01/04/2025 Active Start: 61-80-9881Tfsjt: 93-16-8751onbf 1 tablet by mouth once dailyMagnesium Oxide 400 (240 Mg) MG Oral Tablet TAKE 1 TABLET BY MOUTH EVERY DAY Quantity: 90 Refills: 3 Ordered: 16-Feb-2022 Tavo Mcintyre DO Start : 15-Feb-2022 Active Start: 10-17-2019 End: 67-89-6433epmcmyaad hydrochloride 2.5 mg oral tablet (2 sources)alpha-Adrenergic AgonistStart: 20-51-3244lrlf 2.5 mg by mouth three times daily at mealtime2.5 mg, Oral, 3 TIMES DAILY WITH MEALS, First dose (after last modification) on Tue02/24/24 at 0800, Until Discontinued, Do not give after 1800 or within 4 hrs of bedtime. Hold for sbp > 120Start: 02-22-2024 End: 15-82-0047hodv 10 mg by mouth three times daily at zuybonuc58 mg, Oral, 3 TIMES DAILY WITH MEALS, First dose on Tue02/22/24 at 2130, Until Discontinued, Do not give after 1800 or within 4 hrs of bedtime.Multi For Him (20 sources)Multi For Him Activenystatin 100 unt/mg topical powder (20 sources)Polyene AntifungalStart: 47-64-7264Buuli: 80-20-6948Zvnfd: 06-06-2023 End: 18-57-8459Brugs: 06-06-2023 End: 29-36-9766Xqnamdxv 100,000 unit/gram powder Discontinued 1 APPLIC TOPICAL Twice daily June 06, 2023 12:00amJan2024 11:14am FreeTextSi application Externally Twice a day; Note: Source Status: Taking; Refills: 3; Provider: Daily Wiggins PStart: 87-87-1705Atnstwtw 681001 UNIT/GM 1 application Externally Twice a day for 30 days Feb, Activeondansetron (ZOFRAN-ODT) disintegrating tablet 4 mg (1 source)Start: 39-50-0703joevqqfsyyx (ZOFRAN-ODT) disintegrating tablet 4 mg microencapsulated potassium chloride 20 meq extended release oral tablet (20 sources)Start: 05-91-1964Ttsiz: 51-65-6131lyycwwili chloride (KLOR-CON M) extended release tablet 40 mEqStart: 12-21-2019 End: 06-83-4487Bgsft: 12-21-2019 End: 92-69-5336ziuy 1 tablet by mouth at bedtimePotassium Chloride 20 mEq Tablet Extended Release Discontinued 20 MEQ PO Bedtime December 21, 201912:00am January 04, 2020 12:33pm On Hold: Resume on 12/26/19.Start: 68-96-5971nndg 1 tablet by mouth once dailyK-Dur 20 mEq 1 tablet orally Once a day Oct, ActiveStart: 04-07-2004 End: 79-96-6343sflfilbwavo dihydrochloride 0.25 mg oral tablet (15 sources)Nonergot Dopamine AgonistStart: 10-05-2024 End: 12-18-2024 End: 56-87-9605flzt 1 tablet by mouth once dailypramipexole (MIRAPEX) 0.25 MG tablet Take 1 tablet by mouth daily 02/27/2024 Discontinued (Stop Taking at Discharge)terazosin 2 mg oral capsule (1 source)alpha-Adrenergic BlockerStart: 06-48-1782KJYQMH 2 MG CAPSULE Take one(1) capsule daily. 0 04/07/2004 Active Completed/Discontinued Medications MedicationDrug Class(es)DatesSig (Normalized)Sig (Original)acetaminophen 500 mg oral tablet (20 sources)Start: 03-10-2024 End: 74-01-7422Zrbmv: 03-10-2024 End: 45-00-6463yamc 1 tablet by mouth three times daily as needed for pain Acetaminophen (Acetaminophen Extra Strength) 500 mg tablet Discontinued 500 MG PO Three times dailyas needed for pain 20 July 17, 2024 1:26pm December 12, 2024 3:21pmStart: 86-42-2432fjor 1 tablet by mouth twice dailyAcetaminophen (Acetaminophen Extra Strength) 500 mg tablet Active 500 MG PO Twice daily March 10, 2024 12:00amStart: 78-78-5699097 mg, Rectal, EVERY 4 HOURS PRN, Starting on 02/25/24 at 0700, Until Discontinued, Pain Mild (1-3), Fever, Maximum dose of acetaminophen is 4000 mg from all sources in 24 hours.Start: 06-06-2023 End: 36-08-0418Mlwxg: 06-06-2023 End: 74-81-1535Eyyjd: 01-04-2020 End: 11-08-9690Tdeze: 01-04-2020 End: 84-29-7788scna 2 tablets by mouth twice dailyAcetaminophen 500 mg Tablet Discontinued 1000 MG PO Twice daily 60 0 January 04, 2020 12:00am June 06, 2023 11:56amStart: 01-04-2020 End: 88-55-5843Jcfer: 01-04-2020 End: 92-14-0849pqyh 1000 mg by mouth twice dailyAcetaminophen Discontinued 1000 MG PO Twice daily January 04, 2020 12:00am June 06, 2023 11:56amStart: 10-17-2019 End: 19-87-3366Dikgu: 10-17-2019 End: 90-34-8910fhwg 2 tablets by mouth twice dailyAcetaminophen (Tylenol) 325 mg Tablet Discontinued 650 MG PO Twice daily October 17, 2019 12:00am November 06, 2019 9:42am paintake 1 capsule by mouth every six hoursTylenol 325 MG 1 capsule as needed Orally every 6 hrs Activeacetaminophen 325 mg / HYDROcodone bitartrate 5 mg oral tablet (20 sources)Opioid AgonistStart: 11-06-2019 End: 54-67-3163Qqyfz: 11-06-2019 End: 81-38-5097lalx 1 tablet by mouth every six hours as needed for pain Hydrocodone-Acetaminophen ([place]) 5-325 mg tablet Discontinued 1 TAB PO Q6H as needed for pain 10 0Sept2019November 06, 2019 9:42am Other injury of unspecified body regionStart: 11-06-2019 End: 81-04-1271Hgxrh: 11-06-2019 End: 87-86-2776svvq 1 tablet by mouth every six hours as needed for pain Hydrocodone-Acetaminophen ([place]) 5-325 mg tablet Discontinued 1 TAB PO Q6H as needed for pain 10 November 06, 2019 November 05, 2020 9:42amStart: 11-06-2019 End: 27-12-6488ljbh 1 tablet by mouth every six hours as needed for pain Hydrocodone-Acetaminophen ([place]) 5-325 mg tablet Discontinued 1 TAB PO Q6H as needed for pain November 06, 2019 November 06, 2019 9:42amStart: 11-06-2019 End: 84-20-5513jgkl 1 tablet by mouth every six hours as needed for pain Hydrocodone-Acetaminophen ([place]) 5-325 mg tablet Discontinued 1 TAB PO Q6H as needed for pain November 06, 2019 November 06, 2019 9:42amStart: 11-06-2019 End: 52-34-0033jnux 1 tablet by mouth every six hours as needed for pain Hydrocodone-Acetaminophen ([place]) 5-325 mg tablet Discontinued 1 TAB PO Q6H as needed for pain November 06, 2019 November 06, 2019 9:42amStart: 11-06-2019 End: 44-81-7011pdqy 1 tablet by mouth every six hours as needed for pain Hydrocodone-Acetaminophen ([place]) 5-325 mg tablet Discontinued 1 TAB PO Q6H as needed for pain November 06, 2019 November 06, 2019 9:42amStart: 11-06-2019 End: 37-20-9958cxvp 1 tablet by mouth every six hours as needed for pain Hydrocodone-Acetaminophen ([place]) 5-325 mg tablet Discontinued 1 TAB PO Q6H as needed for pain November 06, 2019 November 06, 2019 9:42amStart: 11-06-2019 End: 63-93-5191Pkwtb: 11-06-2019 End: 52-66-3820Ysaji: 11-06-2019 End: 82-35-4616eetk 1 tablet by mouth every six hours as needed for pain Hydrocodone-Acetaminophen ([place]) 5-325 mg tablet Discontinued 1 TAB PO Q6H as needed for pain November 06, 2019 November 06, 2019 9:42amStart: 11-06-2019 End: 77-14-4056hacf 1 tablet by mouth every six hours as needed for pain Hydrocodone-Acetaminophen ([place]) 5-325 mg tablet Discontinued 1 TAB PO Q6H as needed for pain November 06, 2019 November 06, 2019 9:42amStart: 11-06-2019 End: 56-66-3310esbe 1 tablet by mouth every six hours as needed for pain Hydrocodone-Acetaminophen ([place]) 5-325 mg tablet Discontinued 1 TAB PO Q6H as needed for pain November 06, 2019 November 06, 2019 9:42amStart: 11-06-2019 End: 11-82-0194fofh 1 tablet by mouth every six hours as needed for pain Hydrocodone-Acetaminophen ([place]) 5-325 mg tablet Discontinued 1 TAB PO Q6H as needed for pain 10 November 06, 2019 November 06, 2019 9:42amStart: 11-06-2019 End: 18-68-3697Dfsfj: 11-06-2019 End: 89-20-5299Arycw: 11-06-2019 End: 16-35-0102Rmrog: 11-06-2019 End: 27-16-8742Cswow: 11-06-2019 End: 81-84-2994Dombv: 11-06-2019 End: 74-60-2522kcrn 1 tablet by mouth every six hours as needed for pain Hydrocodone-Acetaminophen ([place]) 5-325 mg tablet Discontinued 1 TAB PO Q6H as needed for pain November 06, 2019 November 06, 2019 9:42amStart: 11-06-2019 End: 54-71-6109obik 1 tablet by mouth every six hours as needed for pain Hydrocodone-Acetaminophen ([place]) 5-325 mg tablet Discontinued 1 TAB PO Q6H as needed for pain November 06, 2019 November 06, 2019 9:42amStart: 11-06-2019 End: 00-70-7953Obzji: 11-06-2019 End: 15-07-4118Rhgsd: 11-06-2019 End: 21-62-8506nbkn 1 tablet by mouth every six hours as needed for pain Hydrocodone-Acetaminophen ([place]) 5-325 mg tablet Discontinued 1 TAB PO Q6H as needed for pain November 06, 2019 November 06, 2019 9:42amStart: 11-06-2019 End: 46-26-3265oync 1 tablet by mouth every six hours as needed for pain Hydrocodone-Acetaminophen ([place]) 5-325 mg tablet Discontinued 1 TAB PO Q6H as needed for pain November 06, 2019 November 06, 2019 9:42amStart: 11-06-2019 End: 81-39-3802dbgt 1 tablet by mouth every six hours as needed for pain Hydrocodone-Acetaminophen ([place]) 5-325 mg tablet Discontinued 1 TAB PO Q6H as needed for pain November 06, 2019 November 06, 2019 9:42amStart: 11-06-2019 End: 88-14-5032pdfx 1 tablet by mouth every six hours as needed for pain Hydrocodone-Acetaminophen ([place]) 5-325 mg tablet Discontinued 1 TAB PO Q6H as needed for pain November 06, 2019 November 06, 2019 9:42amStart: 11-06-2019 End: 21-71-2078ivhm 1 tablet by mouth every six hours as needed for pain Hydrocodone-Acetaminophen ([place]) 5-325 mg tablet Discontinued 1 TAB PO Q6H as needed for pain November 06, 2019 November 06, 2019 8:42amStart: 11-06-2019 End: 35-60-6249aceg 1 tablet by mouth every six hours as needed for pain Hydrocodone-Acetaminophen ([place]) 5-325 mg tablet Discontinued 1 TAB PO Q6H as needed for pain November 06, 2019 November 06, 2019 8:42amStart: 11-06-2019 End: 66-91-4802rcvl 1 tablet by mouth every six hours as needed for pain Hydrocodone-Acetaminophen ([place]) 5-325 mg tablet Discontinued 1 TAB PO Q6H as needed for pain November 06, 2019 November 06, 2019 8:42amStart: 11-06-2019 End: 75-93-7411iseg 1 tablet by mouth every six hours as needed for pain Hydrocodone-Acetaminophen ([place]) 5-325 mg tablet Discontinued 1 TAB PO Q6H as needed for pain November 06, 2019 November 06, 2019 8:42amStart: 11-06-2019 End: 29-71-4862nbei 1 tablet by mouth every six hours as needed for pain Hydrocodone-Acetaminophen ([place]) 5-325 mg tablet Discontinued 1 TAB PO Q6H as needed for pain November 06, 2019 November 06, 2019 8:42amStart: 11-06-2019 End: 39-96-3478gdyj 1 tablet by mouth every six hours as needed for pain Hydrocodone-Acetaminophen ([place]) 5-325 mg tablet Discontinued 1 TAB PO Q6H as needed for pain November 06, 2019 November 06, 2019 8:42amStart: 11-06-2019 End: 95-56-2240rmfq 1 tablet by mouth every six hoursHydrocodone-Acetaminophen ([place]) 5-325 mg tablet Discontinued 1 TAB PO Q6H November 06, 2019 S 2019 9:42amStart: 11-06-2019 End: 73-09-7461fpbp 1 tablet by mouth every six hoursHydrocodone-Acetaminophen ([place]) 5-325 mg tablet Discontinued 1 TAB PO Q6H November 06, 2019 S 2019 9:42amStart: 11-06-2019 End: 82-92-2811vnlz 1 tablet by mouth every six hoursHydrocodone-Acetaminophen ([place]) 5-325 mg tablet Discontinued 1 TAB PO Q6H November 06, 2019 S 2019 9:42amStart: 11-06-2019 End: 51-25-9840iohz 1 tablet by mouth every six hoursHydrocodone-Acetaminophen ([place]) 5-325 mg tablet Discontinued 1 TAB PO Q6H November 06, 2019 S 2019 9:42amStart: 11-06-2019 End: 13-34-0507unkz 1 tablet by mouth every six hoursHydrocodone-Acetaminophen ([place]) 5-325 mg tablet Discontinued 1 TAB PO Q6H November 06, 2019 S 2019 8:42amStart: 11-06-2019 End: 93-42-5708hywb 1 tablet by mouth every six hoursHydrocodone-Acetaminophen ([place]) 5-325 mg tablet Discontinued 1 TAB PO Q6H November 06, 2019 S 2019 8:42amStart: 11-06-2019 End: 47-69-0213raru 1 tablet by mouth every six hoursHydrocodone-Acetaminophen ([place]) 5-325 mg tablet Discontinued 1 TAB PO Q6H November 06, 2019 S 2019 8:42amStart: 11-06-2019 End: 84-27-3065cnpl 1 tablet by mouth every six hoursHydrocodone-Acetaminophen ([place]) 5-325 mg tablet Discontinued 1 TAB PO Q6H November 06, 2019 S 2019 8:42amStart: 11-06-2019 End: 29-66-8515xole 1 tablet by mouth every six hoursHydrocodone-Acetaminophen ([place]) 5-325 mg tablet Discontinued 1 TAB PO Q6H November 06, 2019 S sheyariel 2019 9:42amStart: 11-06-2019 End: 09-08-3245high 1 tablet by mouth every six hoursHydrocodone-Acetaminophen ([place]) 5-325 mg tablet Discontinued 1 TAB PO Q6H November 06, 2019 S sheyariel 2019 9:42amStart: 45-57-3199SJXGQVS 5/500 TABLET as needed 0 04/07/2004 Activeacetaminophen 325 mg / oxyCODONE hydrochloride 5 mg oral tablet (20 sources)Opioid AgonistStart: 06-06-2023 End: 55-78-1476yqmd 1 tablet by mouth every six hours as needed for pain Oxycodone-Acetaminophen 5-325 mg tablet Discontinued 1 TAB PO Every 6 hours as needed for pain 8 2 0 July 17, 2024 October 05, 2024 7:29pm Abscess of left lower extremity Cutaneous abscess of left lower limbStart: 02-18-2022 End: 57-83-9360zqhu 1 tablet by mouth twice dailyoxyCODONE-acetaminophen (Percocet) 5-325 mg tablet Take 1 tablet by mouth 2 times a day. 07/08/2022 ActiveStart: 01-16-2022 End: 68-73-5010kdrx 1 tablet by mouth every eight hours as needed for pain Oxycodone-Acetaminophen 5-325 mg Tablet Discontinued 1 TAB PO Q8H as needed for Moderate Pain 9 3 0Nov2021June 06, 2023 11:57am Low back pain Low back pain, unspecifiedStart: 01-04-2020 End: 83-39-8476wqcl 1 tablet by mouth every four hours as needed for pain Oxycodone-Acetaminophen 5-325 mg Tablet Discontinued 1 TAB PO Q4H as needed for Mild Pain 30 7 0 January 04, 2020 January 16, 2022 1:30pm Status post total left knee replacement Presence of leftartificial knee jointStart: 11-06-2019 End: 11-51-7066Qqoim: 11-06-2019 End: 64-27-5128dzzw 1 tablet by mouth every four to [...] Orally every [address] Brambila PRN Obzrse71 ml albumin human, care home 250 mg/ml injection (1 source)Human Serum AlbuminStart: [...] tablet (20 sources)Xanthine Oxidase InhibitorStart: 04-07-2004 End: 30-20-1315gutzuhyo 5 mg oral tablet (20 sources)Factor Xa InhibitorStart: 12-12-2024 End: 21-55-9658Wyozp: 03-15-2024 End: 40-87-9213Gqhxy: 03-15-2024 End: 80-71-1819tgku 2 tablets by mouth twice dailyApixaban (Eliquis) 2.5 mg Tablet Discontinued 5 MG PO Twice daily July 12, 2024 12:00am December 18, 2024 11:08amStart: 10-17-2019 End: 50-35-6378nfbetwfylogb 40 mg oral tablet (20 sources)HMG-CoA Reductase InhibitorStart: 10-17-2019 End: 59-71-3840wwiihushbl hydrochloride 0.137 mg/actuat metered dose nasal spray (20 sources)Histamine-1 Receptor AntagonistStart: 10-17-2019 End: 86-10-7815qjgfcvxdzz hydrochloride 0.137 mg/actuat / fluticasone propionate 0.05 mg/actuat metered dose nasalspray (20 sources)Corticosteroid, Histamine-1 Receptor AntagonistStart: 10-17-2019 End: 41-32-2165Specr: 10-17-2019 End: 56-31-7722Vmogxehvwn-Fluticasone 137-50 mcg/spray [place],Non-Aerosol Discontinued 1 SPRAY INTRANASAL Twice daily October 17, 2019 12:00am December 24, 2019 11:02amStart: 10-17-2019 End: 06-24-4901Chcfgqhljx-Fluticasone Discontinued 1 SPRAY INTRANASAL Twice daily October 16, 2019 11:00pm December 24, 2019 10:02amStart: 10-17-2019 End: 93-40-8879Jsxhhrojux-Fluticasone Discontinued 1 SPRAY INTRANASAL Twice daily October 17, 2019 12:00am December 24, 2019 11:02amAzelastine-Fluticasone 137-50 mcg/spray [place],Non-Aerosol (12 sources)Start: 10-17-2019 End: 44-82-5172Kmajjqcgzd-Fluticasone 137-50 mcg/spray [place],Non-Aerosol Discontinued 1 SPRAY INTRANASAL Twice daily October 17, 2019 12:00am December 24, 2019 11:02amStart: 10-17-2019 End: 92-61-6561Eqanauaorw-Fluticasone 137-50 mcg/spray [place],Non-Aerosol Discontinued 1 SPRAY INTRANASAL Twice daily October 16, 2019 11:00pm December 24, 2019 10:02ambisacodyl 5 mg delayed release oral tablet (3 sources)Stimulant LaxativeStart: 79-00-6862hngj 10 mg by mouth once daily10 mg, Oral, DAILY, First dose (after last modification) on Tue02/23/24 at 0900, Until Discontinued, Do not crush or break., Post-opStart: 10-67-1094Naqjx: 02-21-2024 End: 27-01-0439ebpd 5 mg by mouth once daily5 mg, Oral, DAILY, First dose on Tue02/21/24 at 1945, Until Discontinued, Do not crush or break., Post-opcarvedilol 3.125 mg oral tablet (20 sources)alpha-Adrenergic Saroj, beta-Adrenergic BlockerStart: 03-15-2024 End: 64-57-1240Ddhut: 02-16-2024 End: 46-18-4047Dwqgh: 10-17-2019 End: 52-07-5723gaQYZjvmm (ANCEF) 2,000 mg in sterile water 20 mL IV syringe (1 source)Start: 02-21-2024 End: 42,000 mg, IntraVENous, EVERY 8 HOURS, 2 doses, First dose on Tue02/21/24 at 2000, Last dose on Tue02/22/24 at 0400, Antimicrobial Indications: Surgical Prophylaxis, Administer over 5 mins. Reconstitute 2 g vial with 20 mL Sterile Water. Withdraw entire contents., Post-opcefepime 2000 mg injection (16 sources)Cephalosporin AntibacterialStart: 07-17-2024 End: 17-47-3866hvsginskbz 500 mg oral capsule (20 sources)Cephalosporin AntibacterialStart: 04-11-2017 End: 51-25-6651cezgmnlkbyciy 500 mg oral tablet (15 sources)Quinolone AntimicrobialStart: 08-29-2024 End: 14-18-6875uvnxlytldem 300 mg oral capsule (20 sources)Lincosamide AntibacterialStart: 03-10-2024 End: 30-27-2998junlvopchzwwzpi hydrochloride 10 mg oral tablet (1 source)Muscle RelaxantStart: 87-14-4882wfle 10 mg by mouth three times daily as fchbso09 mg, Oral, 3 TIMES DAILY PRN, Starting on Tue02/21/24 at 1918, Until Discontinued, Muscle spasms, Post-opdiclofenac sodium 0.01 mg/mg topical gel (20 sources)Nonsteroidal Anti-inflammatory DrugStart: 01-04-2020 End: 80-18-8288Vqcll: 01-04-2020 End: 87-78-7969njsoz 2 g topically three times dailyDiclofenac Sodium Discontinued 2 GM TOPICAL Three times daily January 04, 2020 12:00am January 09, 2022 2:10pmdigoxin 0.125 mg oral tablet (20 sources)Cardiac GlycosideStart: 10-17-2019 End: 13-16-0201tyiu 1 tablet by mouth every twenty-four hoursDigoxin 125 MCG 1 tablet Orally Once a day Activedocusate sodium 100 mg oral capsule (20 sources)Start: 11-06-2019 End: 18-78-2324Teojr: 11-06-2019 End: 82-38-4484cavj 1 capsule by mouth once daily as neededDocusate Sodium 100 mg capsule Discontinued 100 MG PO Daily as needed June 06, 2023 12:00am Januar y 2024 11:13amdocusate sodium 50 mg / sennosides, care home 8.6 mg oral tablet (2 sources)Start: 02-21-2024 End: 96-83-3273zpnb 2 tablets by mouth twice daily2 tablet, Oral, 2 TIMES DAILY, First dose (after last modification) on Tue02/22/24 at 2100, Until D iscontinued, Post-opdoxycycline hyclate 100 mg oral tablet (20 sources)Tetracycline-class DrugStart: 07-12-2024 End: 80-46-6431Txdqi: 12-23-2023 End: 48-36-7544svmbalbym 1000 mg injection (3 sources)Penem AntibacterialStart: 12-18-2024 End: 62-43-6587nifybvykzil 3 mg oral tablet (20 sources)Start: 11-16-2021 End: 29-12-4420Pkzyd: 46-99-9107gzww 1 tablet by mouth every twenty-four hours Eszopiclone 3 MG 1 tablet immediately before bedtime Orally Once a day May, ActiveStart: 10-17-2019 End: 66-79-2719duxsbtmyth 0.92 mg/ml / menthol 0.42 mg/ml / methyl salicylate 0.6 mg/ml / thymol 0.64 mg/ml mouthwash (1 source)Start: 84-63-0570tvru 15 mL by mouth three times daily as kywxvw88 mL, Swish & Spit, 3 TIMES DAILY PRN, Starting on 02/25/24 at 0814, Until Discontinued, Dry Mouthfluticasone propionate 0.05 mg/actuat metered dose nasal spray (20 sources)CorticosteroidStart: 01-09-2022 End: 85-42-3922Ceoqprjmhib Propionate 50 mcg/actuation spray,suspension Discontinued 1 SPRAY NARES-BOTH Daily at bedtime as needed for Nasal Congestion January 09, 2022 2:10pm June 06, 2023 11:57amStart: 01-04-2020 End: 39-19-7673Aylyk: 01-04-2020 End: 15-26-8177Kzyehactpyj Propionate 50 mcg/actuation [place],Suspension Discontinued 1 SPRAY NARES-BOTH Twice daily January 04, 2020 12:00am January 09, 2022 2:10pmfolic acid 1 mg oral tablet (1 source)Start: 77-55-9996erqr 1 mg by mouth once daily1 mg, Oral, DAILY, First dose on Tue02/24/24 at 1300, Until Discontinuedfolic acid 2.5 mg / vitamin b12 1 mg / vitamin b6 25 mg oral tablet (20 sources)Vitamin E49Giiex: 01-04-2020 End: 56-32-5893Ukpek: 01-04-2020 End: 99-70-6287xhzy 1 tablet by mouth once dailyFolic Acid-Vit [...] Janny meredith Jenna: kellyinet overrideStart: 02-21-2024 End: 28-62-7451ugrs 0.25 mg by mouth once0.25 mg, IntraVENous, ONCE, 1 dose, On Tue02/21/24 at 0915, If oral and IV narcotics ordered, use oral first and only use IV if oral is ineffective or cannot take oral. Do Not give oral and IV within 1 hour of each other unless specifically ordered.hydrOXYzine pamoate 25 mg oral capsule (20 sources)AntihistamineStart: 11-06-2019 End: 45-48-5297Pgcej: 11-06-2019 End: 47-02-5757Gdlfckc (20 sources)Start: 55-07-1876Cxvhajz Aug, 3 mLStart: 59-26-1897Bsuwcmd Aug, 3 mLlactulose 667 mg/ml oral solution (20 sources)Osmotic LaxativeStart: 01-04-2020 End: 95-02-4703Qigxusiit Not-Takinglevothyroxine sodium 0.15 mg oral tablet (20 sources)l-ThyroxineStart: 69-41-9155Qwubjzrzj 137 MCG 1 tablet every morning on an empty stomach Orally Once a day for 90 days Aug, ActiveStart: 10-17-2017 End: 46-78-6102Zdkho: 04-07-2004 End: 33-81-9838hdhv 1 tablet by mouth once daily in the morningLevothyroxine (Synthroid) 150 mcg tablet Discontinued 150 MCG PO Every morning June 06, 2023 12:00am September 21, 2023 9:53amlinezolid 600 mg oral tablet (10 sources)Oxazolidinone AntibacterialStart: 10-10-2024 End: 21-86-0588qxqvezpthb 2.5 mg oral tablet (1 source)Angiotensin Converting Enzyme InhibitorStart: 17-53-8329dxvc 2.5 mg by mouth once daily2.5 mg, Oral, DAILY, First dose on 02/25/24 at 0900, Until Discontinued, Hold for SBPmagnesium hydroxide 80 mg/ml oral suspension (1 source)Start: 58-61-4232illi 30 mL by mouth once daily as needed for xcopnoykxhls64 mL, Oral, DAILY PRN, Starting on 02/21/24 at 1918, Until Discontinued, Constipation, First line therapy for constipation., Post-op melatonin 5 mg oral tablet (20 sources)Start: 01-04-2020 End: 67-82-8599qpyKPmsdim 5 mg oral tablet (20 sources)Thiazide-like DiureticStart: 03-10-2024 End: hr mirabegron 25 mg extended release oral tablet (20 sources)beta3-Adrenergic AgonistStart: 01-04-2020 End: 91-97-8981Tirpc: 10-17-2019 End: 20-71-3777Ihwpsmjiskbc (Daily Multi-Vitamin) tablet (20 sources)Start: 06-06-2023 End: 23-71-4643dyxb 1 tablet by mouth once dailyMultivitamin (Daily Multi- Vitamin) tablet Discontinued 1 TAB PO Daily June 06, 2023 12:00am March 10, 2024 11:14amStart: 06-06-2023 End: 04-35-9761mdon 1 tablet by mouth once dailyMultivitamin (Daily Multi- Vitamin) tablet Discontinued 1 TAB PO Daily June 05, 2023 11:00pm March 10, 2024 10:14amStart: 64-51-1225lhhc 1 tablet by mouth once dailyMultivitamin (Daily Multi-Vitamin) tablet Active 1 TAB PO Daily June 06, 2023 12:00am mupirocin 0.02 mg/mg topical ointment (20 sources)RNA Synthetase Inhibitor AntibacterialStart: 06-06-2023 End: 44-63-9804Tcflo: 06-06-2023 End: 92-84-6486Kkuvrcvtg Active 1 APPLIC TOPICAL Twice daily December 23, 2023 12:06pm 1 application Externally Twice a dayStart: 03-36-2519Maqhrtlpe 2 % 1 application Externally Twice a day Jan, Skjxff39 hr oxybutynin chloride 10 mg extended release oral tablet (20 sources)Cholinergic Muscarinic AntagonistStart: 06-06-2023 End: 28-36-8707Inkbf: 01-04-2020 End: 63-96-0815Lllzf: 01-04-2020 End: 54-40-6033ffqz 10 mg by mouth once daily at lunchOxybutynin Chloride Discontinued 10 MG PO Daily with lunch January 04, 2020 12:00am January 2:36pmStart: 10-17-2019 End: 50-49-8886hpeULHVBW hydrochloride 5 mg oral tablet (12 sources)Opioid AgonistStart: 10-10-2024 End: 81-83-8384Ueemr: 43-48-1598lavZSEKXY (ROXICODONE) immediate release tablet 5 mgStart: 02-21-2024 End: 12-44-8971xvxi 1 dose by mouth once5 mg, Oral, ONCE PRN, 1 dose, Starting on Tue02/21/24 at 1510, Until Tue02/21/24 at 1548, Pain Moderate (4-6), Pain Severe (7-10), PHASE II, PACU onlypolyethylene glycol 3350 59495 mg powder for oral solution (19 sources)Osmotic LaxativeStart: 07-17-2024 End: 96-39-1139Idfwy: 02-21-2024 End: 56-40-868601 g, Oral, ONCE, 1 dose, On Tue02/24/24 at 1230, Stir and dissolve one packet of powder (17 g) inany 4 to 8 ounces of beverage (cold, hot or room temperature) then drinksacubitril 24 mg / valsartan 26 mg oral tablet (20 sources)Angiotensin 2 Receptor BlockerStart: 10-17-2019 End: 93-69-3306Glsmz: 10-17-2019 End: 12-79-2865dlos 1 tablet by mouth twice dailySacubitril-Valsartan (Entresto) 24-26 mg Tablet Discontinued 1 TAB PO Twice daily 60 0 January 04, 2020 12:00am January 16, 2022 1:30pmENTRESTO 24 mg/26 mg 1 orally twice a day Lyljrx77 ml sodium chloride 9 mg/ml injection (8 sources)Start: 02-22-2024 End: 02-01-7183492 mL (5.79 mL/kg), IntraVENous, at 491.8 mL/hr, Administer over 61 Minutes, ONCE, On Tue02/22/24at 2044, For 1 doseStart: 06-36-60440-40 mL, IntraVENous, EVERY 12 HOURS SCHEDULED (2 [...] or Central Line = 20 mL/lumen, Post-opStart: 67-76-7240Aavxz: 02-21-2024 End: 46-33-3778JjtlmTWRfkl, at 125 mL/hr, CONTINUOUS, Starting on Tue02/21/24 at 1945, Post-opStart: 93-13-9656kqmv 20 mL intravenously every hourIntraVENous, at 5-250 [...] rate field of order., Post-opStart: 02-21-2024 End: 40-28-4952SnujpKHBnvj, at 5-250 mL/hr, PRN, if patient receiving [...] Reductase Inhibitor Antibacterial, Sulfonamide AntimicrobialStart: 12-23-2023 End: 14-83-9973Mkicp: 12-23-2023 End: 34-92-4819xhqf 1 tablet by mouth twice dailySulfamethoxazole-Trimethoprim (Bactrim Ds) 800-160 mg tablet Discontinued 1 TAB PO Twice daily 20 0October 2023 12:00am February 13, 2024 10:23am Open wound of skin Other injury of unspecified body region, initial encounterStart: 01-09-2022 End: 23-41-2526Shdyg: 01-07-2022 End: 63-58-0492hhmi 1 tablet by mouth twice dailySulfamethoxazole-Trimethoprim (Bactrim Ds) 800-160 mg Tablet Discontinued 1 TAB PO Twice daily January 09, 2022 12:00am January 16, 2022 1:30pm started 01/08/22 for 7 daysStart: 12-21-2019 End: 07-66-6458Qzyar: 12-21-2019 End: 56-45-5305fonw 1 tablet by mouth every twelve hoursSulfamethoxazole- Trimethoprim (Bactrim Ds) 800-160 mg Tablet Discontinued 1 TAB PO Q12H December 21, 2019 12:00am December 25, 2019 1:37pmtamsulosin hydrochloride 0.4 mg oral capsule (20 sources)alpha-Adrenergic BlockerStart: 03-15-2024 End: 22-21-3505xzgxawkd 100 mg oral tablet (1 source)Start: 59-47-3259wylp 100 mg by mouth once mg, Oral, DAILY, First dose on Tue02/24/24 at 1300, Until DiscontinuedtraZODone hydrochloride 50 mg oral tablet (20 sources)Serotonin Reuptake InhibitorStart: 01-09-2022 End: 53-88-4742Yjcxlljmqjdao (20 sources)CorticosteroidStart: 63-58-8217Ebwdzhi -40 mg July, 40 mg vancomycin 1000 mg injection (16 sources)Glycopeptide AntibacterialStart: 07-17-2024 End: 09-18-2024 (18 sources)Start: 06-06-2023 End: 85-02-1323Xmxgz: 10-17-2019 End: 12-24-2019 Problems Active Problems Problem ClassificationProblemDateDocumented DateEpisodic/ChronicAcute cerebrovascular disease (20 sources)Intracranial hemorrhage; Translations: [Nontraumatic intracranial hemorrhage, unspecified]Onset: [id number] dysrhythmias (20 sources)Chronic atrial fibrillation; Translations: [Atrial fibrillation] Onset: 01-19-2021 Resolved: 68-28-9258ZqjodzvFkyoynw dysrhythmias (20 sources)Bradycardia; Translations: [Bradycardia, unspecified]01-10-2022 EpisodicChronic kidney disease (1 source)Chronic kidney disease; Translations: [Chronic kidney disease, stage 3 unspecified]Onset: 09-89-1181Gemqtjt ulcer of skin (14 sources)Pressure ulcer of sacral region, stage 2; Translations: [Pressure injury of coccygeal region, stage2]Onset: 927422-14-7597Bpgbtiv Complication of device; implant or graft (20 sources)Urinary tract infectious disease; Translations: [Infection and inflammatory reaction due to indwelling urethral catheter, initial encounter] Onset: 020472-77-5029ZiehpgsbIdngyfxyay heart failure; nonhypertensive (20 sources)Heart failure; Translations: [Heart failure, unspecified]Onset: 08-31-2021 Resolved: 80-30-0648QrqndqjCvuygpwt atherosclerosis and other heart disease (20 sources)Coronary atherosclerosis; Translations: [Coronary atherosclerosis of unspecified type of vessel, picayune or graft]Onset: 087311-14-4949[place] Disorders of lipid metabolism (20 sources)Hyperlipidemia; Translations: [Other and unspecified hyperlipidemia] Onset: 01-19-2021 Resolved: 46-34-4704CeunfflP Codes: Fall (20 sources)Unspecified fall, initial encounter; Translations: [Fall]Episodic Essential hypertension (20 sources)Benign essential hypertension; Translations: [Benign essential hypertension]Onset: 08-31-2021 Resolved: 40-17-9314NnglnnaZnwvu of unknown origin (20 sources)Fever; Translations: [Fever, unspecified]Onset: 816800-65-2093 EpisodicFluid and electrolyte disorders (20 sources)Dehydration; Translations: [Dehydration]51-20-2312Pzyvrdkg Genitourinary symptoms and ill-defined conditions (1 source)Urge incontinence; Translations: [URGE INCONTINENCE]Onset: 05-17-2022 ChronicGout and other crystal arthropathies (20 sources)Gout; Translations: [Gout, unspecified]Onset: 09-04-2021 Resolved: 60-42-8280EohdincNbtysrdemmc of prostate (20 sources)Benign prostatic hyperplasia; Translations: [Benign prostatic hyperplasia without lower urinary tract symptoms]Onset: 01-19-2021 Resolved: 37-42-0183QkninazAlnoabdkpmof injury (1 source)Traumatic subdural hemorrhage without loss of consciousness, initial encounter; Translations: [Traumatic subdural hemorrhage without loss of consciousness, initial encounter]Onset: 17-21-8008YbctvdfuLbbyoal and fatigue (20 sources)Asthenia; Translations: [Weakness]Onset: EpisodicMycoses (3 sources)Candidiasis, unspecified; Translations: [Pain in toe]Episodic Neoplasms of unspecified nature or uncertain behavior (20 sources)Ependymoma ; 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, unspecified]44-65-0186PehpwwaMabwkdf on above:1989Open wounds of extremities (1 source)Laceration without foreign body of left upper arm, initial encounter EpisodicOpen wounds of head; neck; and trunk (20 sources)Laceration - injury; Translations: [Laceration]99-49-2839Hwliwmbs Osteoarthritis (20 sources)Osteoarthritis of left knee joint; 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, left knee]ChronicOsteoporosis (7 sources)Senile osteoporosis; Translations: [Age-related osteoporosis without current pathological fracture]Onset: 804361-22-1604YneegjeWwwjz acquired deformities (20 sources)Acquired spondylolisthesis; Translations: [Spondylolysis, lumbar region]EpisodicOther acquired deformities (20 sources)Spondylolysis; Translations: [Spondylolysis, lumbar region] 29-07-9627YrslhcvtYxrcd acquired deformities (9 sources)Spondylolysis, lumbar region; Translations: [Acquired spondylolisthesis]36-35-9388CqvjolnsGwckx aftercare (20 sources)Drug therapy finding; Translations: [Long-term (current) use of other medications]41-48-9725PyhyambbFhfcn aftercare (20 sources)Long-term current use of anticoagulant; Translations: [Long-term (current) use of anticoagulants]Onset: 523983-53-2411ZbopdgowBokoq and unspecified benign neoplasm (20 sources)Spinal meningioma; Translations: [Benign neoplasm of spinal meninges]EpisodicOther circulatory disease (7 sources)H/O: atrial fibrillation; Translations: [Personal history of other diseases of circulatory system]EpisodicOther circulatory disease (3 sources)History of sick sinus syndrome; Translations: [Personal history of other diseases of circulatory system]EpisodicOther circulatory disease (1 source)Abnormal foot pulse; Translations: [Other specified symptoms and signs involving the circulatory and respiratory systems]92-47-0773QmfbzunjKhwap connective tissue disease (20 sources)History of repair of hip joint; Translations: [Presence of left artificial hip joint]ChronicOther connective tissue disease (20 sources)Artificial knee joint present; Translations: [Presence of unspecified artificial knee joint]ChronicOther connective tissue disease (20 sources)History of total knee arthroplasty; Translations: [Presence of left artificial knee joint]39-34-7598WxnsnfsQrxdm connective tissue disease (20 sources)Synovial cyst of popliteal space; Translations: [Synovial cyst of popliteal space [[place]], left knee]EpisodicOther connective tissue disease (20 sources)Neuropathic pain; Translations: [Neuralgia and neuritis, unspecified]EpisodicOther connective tissue disease (20 sources)Recurrent falls ; Translations: [Repeated falls]53-35-2248Jnfulqxc Other connective tissue disease (4 sources)Repeated falls; Translations: [History of fall]Onset: 12-12-2024 42-53-1315OjllegnrCnryr connective tissue disease (1 source)Muscle weakness (generalized)EpisodicOther [...] (20 sources)Vascular insufficiency; Translations: [Venous insufficiency (chronic) (peripheral)]36-26-8024UyvedrzeCubds diseases of veins and lymphatics (3 sources)Venous insufficiency (chronic) (peripheral); Translations: [Venous (peripheral) insufficiency, unspecified]77-75-9646RxjolqplEzjgc ear and sense organ disorders (13 sources)Tinnitus; Translations: [Tinnitus, unspecified ear]EpisodicOther fractures (12 sources)Compression fracture of lumbar spine; Translations: [Wedge compression fracture of first lumbar vertebra, initial encounter for closed fracture]90-61-6488HbqujvcjQzteb fractures (1 source)Wedge compression fracture of first lumbar vertebra, initial encounter for closed fracture; Translations: [Wedge compression fracture of first lumbar vertebra, initial encounter for closed fracture]Onset: 63-99-1817SohxxgmdIihlp gastrointestinal disorders (20 sources)Constipation; Translations: [Constipation, unspecified]01-09-2022 EpisodicOther gastrointestinal disorders (3 sources)Constipation, unspecified; Translations: [Constipation, unspecified] 29-96-2828UupxzjahPuzri hematologic conditions (5 sources)Raised cardiac enzyme or marker; Translations: [Other specified abnormalities of plasma proteins]77-96-2824XjnzuhpqJixfx hematologic conditions (4 sources)Other specified abnormalities of plasma proteins; Translations: [Other abnormal blood chemistry]53-16-5500EcjtopirQpfvn injuries and conditions due to external causes (20 sources)Open wound of skin; Translations: [Other injury of unspecified body region, initial encounter]42-43-6696AzohcgsiTquil lower respiratory disease (20 sources)Hypoxemia; Translations: [Hypoxemia]93-15-1134GlkyhsrtIjfzf lower respiratory disease (20 sources)Hypoxia; Translations: [Hypoxemia]12-38-7213MrmoiotgUsgxq nervous system disorders (20 sources)Chronic pain; Translations: [Other chronic pain]ChronicOther nervous system disorders (1 source)Other chronic painOnset: 01-19-2021 Resolved: 41-70-1806NntdzriHjfoo nervous system disorders (20 sources)Difficulty walking; Translations: [Difficulty in walking, 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]98-08-9088VlykbdnLxata nervous system disorders (3 sources)Difficulty in walking, 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; Translations: [Difficulty in walking]12-78-1952NovsftcXdrqi nervous system disorders (20 sources)Muscle weakness; Translations: [Other specified myopathies] 66-00-0188ZjfnckdRxtxw nervous system disorders (3 sources)Other specified myopathies; Translations: [Myopathy, unspecified] 69-33-6423UohegruQrwmr nervous system disorders (1 source)Metabolic encephalopathy; Translations: [Metabolic encephalopathy] Onset: 37-49-9692XwcmdwoJqxvt non-traumatic joint disorders (20 sources)Multiple joint pain; Translations: [Pain in unspecified joint] EpisodicOther non-traumatic joint disorders (20 sources)Ankle pain; Translations: [Pain in left ankle and joints of left foot]12-20-9069BxftwcibIplxj nutritional; endocrine; and metabolic disorders (3 sources)Body mass index 30+ - obesity; Translations: [Body Mass Index 33.0- 33.9, adult]Onset: 666263-21-2217VtydwtaFzkts nutritional; endocrine; and metabolic disorders (20 sources)Obesity; Translations: [Obesity, unspecified]ChronicOther nutritional; endocrine; and metabolic disorders (2 sources)Body mass index (BMI) 30.0-30.9, adult; Translations: [Body mass index (BMI) 30.0-30.9, adult]Onset: 59-67-5696IwyqhooNftiz nutritional; endocrine; and metabolic disorders (1 source)Abnormal weight lossEpisodicOther nutritional; endocrine; and metabolic disorders (3 sources)Overweight in adulthood with body mass index of 25 or more but less than 30; Translations: [Overweight]EpisodicOther screening for suspected conditions (not mental disorders or infectious disease) (20 sources)Echocardiogram abnormal; Translations: [Nonspecific (abnormal) findings on radiological and other examination of other intrathoracic organs] Onset: 01-19-2021 Resolved: 42-84-5962KhicbllwXccaj skin disorders (20 sources)Abnormality of nail of toe; Translations: [Other nail disorders] EpisodicOther skin disorders (1 source)Actinic keratosisEpisodicOther upper respiratory infections (20 sources)Sinusitis; Translations: [Chronic sinusitis, unspecified]Chronic Pratima-; endo-; and myocarditis; cardiomyopathy (except that caused by tuberculosis or sexually transmitted disease) (20 sources)Cardiomyopathy; Translations: [Other primary cardiomyopathies]Onset: 02-16-2023 Resolved: 727860-97-3886IqpoqvmNuhtwyhv; pneumothorax; pulmonary collapse (20 sources)Pleural effusion; Translations: [Pleural effusion, 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]90-74-7454IkxqooqsImvvpbjv codes; unclassified (20 sources)Sleep apnea; Translations: [Sleep apnea, unspecified]01-09-2022 ChronicComment on above:does not use equipmentResidual codes; unclassified (3 sources)Sleep apnea, unspecified; Translations: [Unspecified sleep apnea] 08-90-1171UcskwtaHwhyigso codes; unclassified (7 sources)Swelling - edema - symptom; Translations: [Edema]EpisodicResidual codes; unclassified (20 sources)Edema; Translations: [Edema]Onset: 658858-35-1177Pvbbccku Residual codes; unclassified (20 sources)Insomnia; Translations: [Insomnia, unspecified]81-89-6901Ljtgbevk Residual codes; unclassified (8 sources)Insomnia, unspecifiedOnset: 03-05-2021 Resolved: 62-16-2275XdpnixldXikcvhcy codes; unclassified (20 sources)Activity of daily living (ADL) alteration; Translations: [Other specified health status]93-83-0105EqeplnrwOgcbjkwf codes; unclassified (20 sources)Edema, generalized; Translations: [Generalized edema]12-21-2019 EpisodicResidual codes; unclassified (20 sources)Patient encounter status; Translations: [Encounter for prophylactic measures, unspecified]77-80-8463EhdsdiwtTgantsbp codes; unclassified (20 sources)Altered mental status; Translations: [Altered mental status, unspecified]51-56-0854ZvcarhzoYqaksvwj codes; unclassified (1 source)Localized edemaEpisodicResidual codes; unclassified (3 sources)Altered mental status, unspecified; Translations: [Altered mental status]07-31-8658MrtjgsypAjgxuuii codes; unclassified (3 sources)Generalized edema; Translations: [Edema]71-04-0440WczmzwksTqgoyubc codes; unclassified (7 sources)Other specified health status; Translations: [Other specified conditions influencing health status]19-66-6655FlnuthpnYkcmcbay codes; unclassified (1 source)Localized edema; Translations: [Localized edema]94-28-4090Mxqymwzx Residual codes; unclassified (1 source)Other specified postprocedural states; Translations: [Other specified postprocedural states]Onset: 52-82-3727BnnefcxoHaseyqlzzye failure; insufficiency; arrest (adult) (20 sources)Acute respiratory failure; Translations: [Acute respiratory failure with hypoxia]25-74-4101YmxpbcdwDcqixrrihpv; intervertebral disc disorders; other back problems (20 sources)Degeneration of lumbar intervertebral disc; Translations: [Other intervertebral disc degeneration, lumbar region]Onset: 15-73-5300Jnnnuvq Spondylosis; intervertebral disc disorders; other back problems (20 sources)Chronic low back pain; Translations: [Acute exacerbation of chronic low back pain]Onset: 750182-75-1668KsyrzjaiSlmunsolwmw injury; contusion (20 sources)Abrasion, left knee, initial encounter; Translations: [Abrasion of left upper arm, initial encounter]Onset: 11-93-0911LkdpomhnGliwoay disorders (20 sources)Hypothyroidism; Translations: [Hypothyroidism, unspecified]Onset: 01-19-2021 Resolved: 11-53-8176HxfiuksGoakguhuxtdj (3 sources)LOW BACK PAIN, UNSPECIFIED; Translations: [LOW BACK PAIN, UNSPECIFIED]Onset: 91-90-6076Zdmuxcjjxmra (1 source)Patient encounter oimikw88-61-9906Mfgjhanzvvxh (1 source)Longstanding persistent atrial fibrillation; Translations: [Longstanding persistent atrial fibrillation]Onset: 81-41-3397Thwxeoledtbx (12 sources)A [facility] screening has identified you as FRAIL or [...] Four Ways to Beat the Frailty Risk [email or web address]-ujrjlb-ltvv- jsrn-jh-rgyw-the-fra yxod-[id number]ksthe (3 sources)Chronic atrial fibrillation, unspecified; Translations: [Chronic atrial fibrillation, unspecified (Multi)]Onset: 79-93-3503Vhvadifyocpu (14 sources)For a brain CT. This must be done prior to the appointment with Dr. Stovall.Unclassified (7 sources)Please call to schedule follow up appointment following discharge from [facility] facility.Unclassified (7 sources)Please have the Brain CT done 1 day prior to this appointment. This appointment is scheduled with Dr. Stovall's Nurse Practitioner.Unclassified (2 sources)Please call to schedule an appointment for right heel stage 3 pressure injury.Varicose veins of lower extremity (20 sources)Varicose veins of lower extremity; Translations: [Varicose veins of left lower extremity with othercomplications]57-10-2520IepyvcatKfiny infection (20 sources)Disease caused by 2019-nCoV; Translations: [COVID-19]03-10-2024 Episodic Past or Other Problems Problem ClassificationProblemDateDocumented DateEpisodic/ChronicAcute and unspecified renal failure (20 sources)Acute renal failure syndrome; Translations: [Acute kidney failure, unspecified]Onset: 911971-17-7629OffsohqvCrazvrztp infection; unspecified site (20 sources)Bacteremia; Translations: [Bacteremia due to Pseudomonas]Onset: 168304-85-8115BuvyiavbYbasnqabitpzk of surgical procedures or medical care (1 source)Disruption of external operation (surgical) wound, 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, initial encounter; Translations: [Disruption of external operation (surgical) wound, 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, initial encounter]Onset: 06-06-2024 EpisodicGenitourinary symptoms and ill-defined conditions (20 sources)Retention of urine; Translations: [Retention of urine, unspecified] Onset: 224512-45-0441VcyigsauPgxqr aftercare (2 sources)nursing home (current) use of anticoagulants; Translations: [nursing home (current) use of anticoagulants]Onset: 91-62-4195YcrjyikrUsajt aftercare (1 source)Encounter for other orthopedic aftercare; Translations: [Encounter for other orthopedic aftercare]Onset: 41-72-6223JxgpffycWixri connective tissue disease (5 sources)Muscle wasting and atrophy, 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, unspecified site; Translations: [MUSCLE WASTING ATROPHY NEC UNS SITE]Onset: 08-17-2021 EpisodicOther lower respiratory disease (7 sources)Hypoxemia; Translations: [Hypoxemia]Onset: 892064-34-4326 EpisodicScreening and history of mental health and substance abuse codes (20 sources)Ex-smoker; Translations: [Personal history of tobacco use]Onset: 432328-74-0009FnowtcpnExfuyqi on above:Quit smoking in 1979;Septicemia (except in labor) (20 sources)Sepsis; Translations: [Sepsis, unspecified organism]Onset: 627628-65-4694HcbveteoGvvt and subcutaneous tissue infections (20 sources)Cellulitis, unspecified; Translations: [Cellulitis]Onset: 07-12-2024 46-38-4834FyyzkkizHxhazrpcjtfj (1 source)LOW BACK PAIN, UNSPECIFIED; Translations: [LOW BACK PAIN, UNSPECIFIED] Onset: 59-11-3982Nygmqpvycrfc (1 source)Cough, unspecified type R05.9Unclassified (2 sources)Onset: 095336-91-3143Xwclusp tract infections (20 sources)Urinary tract infection, site not specified; Translations: [Urinary tract infectious disease]Onset: 44-66-1847Rhsdeueb Results Test NameValueInterpretationReference RangeFacilityBasophils Auto (Bld) [#/Vol] Ordered By: Sha Pepe on 38-41-6918Tvntxjzqc (Bld) [#/Vol]0.1 10 3/uL0.0-0.1 [facility] CenterBasophils/100 WBC Auto (Bld)Ordered By: Sha Pepe on 46-98-6061Rvvhqpexu/100 WBC (Bld)0.8 %0.2-2.0[facility] CenterEosinophils/100 WBC Auto (Bld)Ordered By: Sha Pepe on 04-18-3829Baaotxqmqtl/100 WBC (Bld)2.7 %0.9-7.0[facility] Erythrocyte distribution width Auto (RBC) [Ratio]Ordered By: Sha Pepe on 83-82-0622Htzjtqehcyl distribution width (RBC) [Ratio]16.9 %High11.0-15.0 [facility] CenterGlobulin Calc (S) [Mass/Vol]Ordered By: Sha Pepe on 61-94-9743Yuthfprk (S) [Mass/Vol]3.7 g/dLUniversity Hospitals Ahuja Medical CenterGlomerular filtration rate (GFR) estimation in non- AmericanOrdered By: Sha Pepe on 99-41-5289QJP/1.73 sq M.predicted among non-blacks MDRD (S/P/Bld) [Vol rate/Area]28 mL/min/{1.73_m2}Low>=60 mL/min/1.73m 2FCleveland Clinic FoundationHematocrit Auto (Bld) [Volume fraction]Ordered By: Sha Pepe on 93-32-1637Vjnzmekwsa (Bld) [Volume fraction]26.0 %Low42.0-54.0 [facility] CenterHemoglobin [Mass/volume] in BloodOrdered By: Sha Pepe on 42-22-7239Kobkhcdkhw (Bld) [Mass/Vol]8.3 g/dLLow14.0-18.0 [facility] CenterIron binding capacity [Mass/volume] in Serum or PlasmaOrdered By: Sha Pepe on 95-05-4498Zzwm binding capacity [Mass/Vol] 177.0 ug/aZUbu766.0-450.0[facility] CenterIron saturation [Mass Fraction] in Serum or PlasmaOrdered By: Sha Pepe on 12-42-7792Bmfq saturation [Mass fraction]6.8 %[facility] CenterLeukocytes [#/volume] corrected for nucleated erythrocytes in Blood by Automated coun Ordered By: hSa Pepe on 67-17-1679PRR corrected for nucl RBC Auto (Bld) [#/Vol]7.1 10 3/uL4.0-11.0[facility] CenterLymphocytes Auto (Bld) [#/Vol]Ordered By: Sha Pepe on 88-60-5505Bctxfxvgket (Bld) [#/Vol]1.0 10 3/uLLow1.2-3.8[facility] CenterLymphocytes/100 WBC Auto (Bld)Ordered By: Sha Pepe on 07-24-1826Hwsyozcbmqd/100 WBC (Bld)14.0 %Low 20.5-60.0[facility] CenterH Auto (RBC) [Entitic mass]Ordered By: Sha Pepe on 25-87-5386WOR (RBC) [Entitic mass]28.3 pg25.9-34.0[facility] CenterMCHC Auto (RBC) [Mass/Vol]Ordered By: Sha Pepe on 15-17-3370AIPT (RBC) [Mass/Vol]31.7 g/dL29.9-35.2FCleveland Clinic FoundationMCV Auto (RBC) [Entitic vol]Ordered By: Sha Pepe on 18-90-4149IYV (RBC) [Entitic vol]89.3 fL80.0-94.0[facility] CenterMonocytes Auto (Bld) [#/Vol]Ordered By: Sha Pepe on 08-15-1201Nzgqdjmmh (Bld) [#/Vol] 0.5 10 3/uL0.3-0.8[facility] CenterMonocytes/100 WBC Auto (Bld) Ordered By: Sha Pepe on 95-19-0371Lmsgdufzn/100 WBC (Bld)6.8 %1.7-12.0 [facility] CenterNeutrophils Auto (Bld) [#/Vol]Ordered By: Sha Pepe on 16-02-5395Cauphfgnuew (Bld) [#/Vol]5.3 10 3/uL1.4-6.5FCleveland Clinic FoundationNeutrophils/100 WBC Auto (Bld)Ordered By: Sha Pepe on 54-88-5740Nyjzjkxrcak/100 WBC (Bld)75.6 %High43.0-75.0[facility] CenterNo Panel InformationOrdered By: Sha Pepe on 42-71-829170.1 [facility]41.0 mg/dLHigh7.0-18.0[facility]8.6 mg/dL8.5-10.1FC[facility] Foundation108 mmol/LHigh 98-107[facility]25.0 mmol/L21.0-32.0[facility]2.26 mg/dLHigh0.70-1.30[facility]34Low>=60 mL/min/1.73m 2FC[facility] Foundation107 mg/fTTrcx06-320YfifwgdlzUniversity Hospitals Ahuja Medical Center4.1 mmol/L3.5-5.1FC[facility] Foundation141 mmol/Y373-813NudxwttkjUniversity Hospitals Ahuja Medical Center9.00 ng/mL8.60-58.90[facility]293.0 ng/mL26.0-388.0[facility] 10.864 u[iU]/mLHigh0.358-3.740[facility]2.4 mg/dL1.8-2.4 [facility]12.0 ug/dLLow65.0-175.0[facility]2.4 g/dLLow3.4-5.0[facility]0.2 10 3/uL 0.0-0.7FC[facility] Foundation96 U/I99-842NsmxsjqduUniversity Hospitals Ahuja Medical Center16 U/H80-88RhdjpvcwnUniversity Hospitals Ahuja Medical Center17 U/N46-58XbwdtayadUniversity Hospitals Ahuja Medical Center0.01 10 3/uL0.00-0.03[facility]0.1 %0.0-0.5 [facility]0.5 mg/dL0.2-1.0[facility]6.1 g/dLLow6.4-8.2FC[facility] Clinic FoundationPlatelet mean volume Auto (Bld) [Entitic vol]Ordered By: Sha Pepe on 84-76-6024Ctnkjrid mean volume (Bld) [Entitic vol]9.7 fL9.5-13.5FC[facility] Platelets Auto (Bld) [#/Vol]Ordered By: Sha Pepe on 27-76-3138Rffzyyxku (Bld) [#/Vol]216 10 3/sD305-425FgpjiomhdUniversity Hospitals Ahuja Medical CenterRBC Auto (Bld) [#/Vol]Ordered By: Sha Pepe on 64-04-8926NTM (Bld) [#/Vol]2.72 10 6/uLLow 4.70-6.10Mart[facility] Ferry Hospitalerum or plasma albumin/globulin mass ratioOrdered By: Sha Pepe on 24-24-5794Kuuindm/Globulin [Mass ratio]0.6 {ratio}[facility] Ferry Hospitalerum or plasma anion gap determination Ordered By: Sha Pepe on 28-69-1619Rjkhk gap [Moles/Vol]12.1 mmol/LFCleveland Clinic FoundationBasophils Auto (Bld) [#/Vol]Ordered By: Clarence Schroeder on 41-00-3305Tzpmcjstl (Bld) [#/Vol]0.1 10 3/uL0.0-0.1FCleveland Clinic FoundationBasophils/100 WBC Auto (Bld)Ordered By: Clarence Schroeder on 12-30-2024 Basophils/100 WBC (Bld)0.6 %0.2-2.0[facility] Eosinophils/100 WBC Auto (Bld)Ordered By: Clarence Schroeder on 12-30-2024 Eosinophils/100 WBC (Bld)1.9 %0.9-7.0[facility] Erythrocyte distribution width Auto (RBC) [Ratio]Ordered By: Clarence Schroeder on 80-89-0401Urgrvzqfgzw distribution width (RBC) [Ratio]16.9 %High11.0-15.0 [facility] CenterGlomerular filtration rate (GFR) estimation in non- AmericanOrdered By: Clarence Schroeder on 99-15-2793RAG/1.73 sq M.predicted among non-blacks MDRD (S/P/Bld) [Vol rate/Area]23 mL/min/{1.73_m2}Low>=60 mL/min/1.73m 2FC[facility] Clinic FoundationHematocrit Auto (Bld) [Volume fraction]Ordered By: Clarence Schroeder on 85-95-2876Hikjljylmg (Bld) [Volume fraction] 24.0 %Low42.0-54.0[facility] CenterHemoglobin [Mass/volume] in BloodOrdered By: Clarence Schroeder on 06-47-8044Lwbytekuxa (Bld) [Mass/Vol]7.6 g/dLLow 14.0-18.0[facility] CenterLeukocytes [#/volume] corrected for nucleated erythrocytes in Blood by Automated counOrdered By: Clarence Schroeder on 58-39-6047QWN corrected for nucl RBC Auto (Bld) [#/Vol]11.9 10 3/uLHigh4.0-11.0 [facility] CenterLymphocytes Auto (Bld) [#/Vol]Ordered By: Clarence Schroeder on 10-86-8025Fbspehuhxxr (Bld) [#/Vol]1.2 10 3/uL1.2-3.8[facility] CenterLymphocytes/100 WBC Auto (Bld)Ordered By: Clarence Schroeder on 66-51-9217Opyfxhoxemj/100 WBC (Bld)10.4 %Low20.5-60.0[facility] CenterMCH Auto (RBC) [Entitic mass]Ordered By: Clarence Schroeder on 23-58-5465QQX (RBC) [Entitic mass]28.8 pg25.9-34.0[facility] CenterMCHC Auto (RBC) [Mass/Vol]Ordered By: Clarence Schroeder on 15-21-4152RTTR (RBC) [Mass/Vol]31.7 g/dL29.9-35.2FC[facility] Clinic FoundationMCV Auto (RBC) [Entitic vol] Ordered By: Clarence Schroeder on 06-50-3328BWL (RBC) [Entitic vol]90.9 fL80.0-94.0 [facility] CenterMonocytes Auto (Bld) [#/Vol]Ordered By: Clarence Schroeder on 02-43-6445Geioewgit (Bld) [#/Vol]0.8 10 3/uL0.3-0.8[facility] CenterMonocytes/100 WBC Auto (Bld)Ordered By: Clarence Schroeder on 12-30-2024 Monocytes/100 WBC (Bld)6.9 %1.7-12.0[facility] CenterNeutrophils Auto (Bld) [#/Vol]Ordered By: Clarence Schroeder on 80-86-3456Fdlhdufbaog (Bld) [#/Vol]9.5 10 3/uLHigh1.4-6.5FC[facility] Clinic FoundationNeutrophils/100 WBC Auto (Bld)Ordered By: Clarence Newsometon on 18-43-6428Onqvyybkooc/100 WBC (Bld)79.9 %High43.0-75.0[facility] CenterNo Panel InformationOrdered By: Clarence Alexandre on 61-67-5444CRB-[facility] HospitalNONE SEEN #/LPFNONE/RAREUniversity Hospitals Ahuja Medical CenterNone Seen #/HPFNone [facility] HospitalMALL #/HPFAbnormalTUCSON VA MEDICAL CENTERE [facility] HospitalNegativeNEG/TRACEMartins Ferry HospitalMALLAbnormalNEGATIVE [facility] CenterCLEARCLEARUniversity Hospitals Ahuja Medical CenterLT. YELLOWYELLOWUniversity Hospitals Ahuja Medical CenterMODERATEAbnormalNEGATIVEUniversity Hospitals Ahuja Medical CenterNONE SEENCleveland Clinic [facility] PositiveAbnormalNEGATIVEUniversity Hospitals Ahuja Medical Center6.05.0-9.0[facility]2-5 #/HPFAbnormal0-2FC[facility] Foundation <=1.378Yfrkfamm4.005-1.025[facility]0.2 EU/dL0.2-1.0 [facility]5-10 #/HPFAbnormalNONE [facility]1.5 mmol/L0.4-2.0[facility]122.3 pg/mL Critically high4.0-76.1FC[facility] Foundation4924.0 pg/mLCritically high<=1800.0[facility]16.5[facility]44.0 mg/dLHigh7.0-18.0[facility]0.2 10 3/uL0.0-0.7 [facility]9.5 mg/dL8.5-10.1[facility] Foundation97 mmol/SUmn01-102RofmupcwkUniversity Hospitals Ahuja Medical Center24.2 mmol/L21.0-32.0 [facility]2.66 mg/dLHigh0.70-1.30[facility]0.04 10 3/uLHigh0.00-0.03[facility]28Low >=60 mL/min/1.73m 2FC[facility] Foundation0.3 %0.0-0.5[facility]100 mg/aB38-750UcmriftvaUniversity Hospitals Ahuja Medical Center4.7 mmol/L3.5-5.1FC[facility] Foundation131 mmol/BEtw034-698CsmjhywqwUniversity Hospitals Ahuja Medical CenterPlatelet mean volume Auto (Bld) [Entitic vol]Ordered By: Clarence Schroeder on 61-87-0252Wjzddpcm mean volume (Bld) [Entitic vol]9.5 fL9.5-13.5 [facility] CenterPlatelets Auto (Bld) [#/Vol]Ordered By: Clarence Schroeder on 91-86-3879Qudopojdq (Bld) [#/Vol]294 10 3/oD999-958LhpjkkpqmUniversity Hospitals Ahuja Medical CenterRBC Auto (Bld) [#/Vol]Ordered By: Clarence Schroeder on 06-55-3724YKM (Bld) [#/Vol]2.64 10 6/uLLow4.70-6.10Martins Ferry Hospitalerum or plasma anion gap determinationOrdered By: Clarence Schroeder on 80-93-9062Rwzyy gap [Moles/Vol]14.5 mmol/LFCleveland Clinic FoundationUrine Cultureon 68-99-1777Higorawb identified Cx Nom (U)NormalThe [facility] Comment on above:Performed By: #### CU[facility] ####[facility] [id number] [place] [address] USAYeast detection in urine sediment by light microscopyOrdered By: Clarence Schroeder on 15-90-4679Wrzdg LM Ql (Urine sed)SEEN AbnormalNONE SEENUniversity Hospitals Ahuja Medical CenterBasophils Auto (Bld) [#/Vol] Ordered By: Cristy Prince ([place]) on 45-47-1099Vkkpjzqrq (Bld) [#/Vol]0.1 10 3/uL0.0-0.1FC[facility] Clinic FoundationBasophils/100 WBC Auto (Bld)Ordered By: (Maki) Cristyvanita Livingstonon on 60-49-4775Qbkgpyqkc/100 WBC (Bld)0.9 %0.2-2.0 [facility] CenterEosinophils/100 WBC Auto (Bld)Ordered By: (Maki) Cristyvanita Prince on 02-10-0120Szncpyseeez/100 WBC (Bld)2.8 %0.9-7.0 [facility] CenterErythrocyte distribution width Auto (RBC) [Ratio]Ordered By: (Maki) Cristy Niki on 44-69-8136Yhcwcqqqrav distribution width (RBC) [Ratio]16.9 %High11.0-15.0[facility] Medical CenterGlobulin Calc (S) [Mass/Vol]Ordered By: (Maki) Cristy Niki on 55-13-9762Mozgnjro (S) [Mass/Vol]4.2 g/dLUniversity Hospitals Ahuja Medical CenterGlomerular filtration rate (GFR) estimation in non- AmericanOrdered By: (Maki) Cristyvanita Livingstonon on 25-34-7219UGB/1.73 sq M.predicted among non-blacks MDRD (S/P/Bld) [Vol rate/Area]51 mL/min/{1.73_m2}Low>=60 mL/min/1.73m 2FC[facility] Clinic FoundationHematocrit Auto (Bld) [Volume fraction]Ordered By: (Maki) Cristy Niki on 19-60-1034Xytkpbqmdn (Bld) [Volume fraction]27.1 %Low42.0-54.0[facility] CenterHemoglobin [Mass/volume] in BloodOrdered By: (Maki) Cristy Niki on 88-56-4662Kgyuhomqbq (Bld) [Mass/Vol]8.7 g/dLLow14.0-18.0 [facility] CenterLaboratory - Chemistry and Chemistry - challengeOrdered By: (Maki) Cristy Niki on 11-13-0798Ruxzvltpr Ql (U) NegativeNEGATIVEUniversity Hospitals Ahuja Medical CenterGlucose (U) [Mass/Vol]Negative NEGATIVEUniversity Hospitals Ahuja Medical CenterKetones Ql (U)NegativeNEGATIVEUniversity Hospitals Ahuja Medical CenterpH (U)5.5 [pH]5.0-9.0[facility] Specific gravity (U) [Rel density]<=1.418Vkdxkpce7.005-1.025[facility] CenterUrobilinogen Qn (U)0.2 {Raghu'U}/dL0.2-1.0[facility] CenterAlbumin [Mass/Vol]2.7 g/dLLow3.4-5.0[facility] CenterALP [Catalytic activity/Vol]143 U/XXrcq58-937DttgxfndpUniversity Hospitals Ahuja Medical CenterALT [Catalytic activity/Vol]30 U/M53-42RnisizfwqUniversity Hospitals Ahuja Medical Center AST [Catalytic activity/Vol]42 U/ZFvtg72-93QndqrqjfwUniversity Hospitals Ahuja Medical Center Bilirubin [Mass/Vol]0.5 mg/dL0.2-1.0[facility] CenterCalcium [Mass/Vol]8.9 mg/dL8.5-10.1FCleveland Clinic FoundationChloride [Moles/Vol] 97 mmol/FPhj77-449SblyrvnsmUniversity Hospitals Ahuja Medical CenterCO2 [Moles/Vol]24.8 mmol/L 21.0-32.0[facility] CenterCreatinine [Mass/Vol]1.33 mg/dLHigh 0.70-1.30[facility] CenterGFR/1.73 sq M.predicted MDRD (S/P/Bld) [Vol rate/Area]mL/min/{1.73_m2}>=60 mL/min/1.73m 2FC[facility] Clinic FoundationGlucose [Mass/Vol]92 mg/rI40-325OnwnqrzsjUniversity Hospitals Ahuja Medical CenterPotassium [Moles/Vol]5.1 mmol/L3.5-5.1FCleveland Clinic FoundationProtein [Mass/Vol] 6.9 g/dL6.4-8.2FSumma Health Akron Campusodium [Moles/Vol]131 mmol/LLow 136-145[facility] CenterUrea nitrogen [Mass/Vol]24.0 mg/dLHigh 7.0-18.0[facility] CenterUrea nitrogen/Creatinine [Mass ratio] 18.0 mg/mgUniversity Hospitals Ahuja Medical CenterLaboratory - Hematology and Cell countsOrdered By: Cristy Prince ([place]) on 39-10-2947Qfzhtakz granulocytes/100 WBC (Bld)0.5 %0.0-0.5FCleveland Clinic FoundationLaboratory - Specimen informationOrdered By: Cristy Prince ([place]) on 63-45-3634Inygrxieup (U)SL CLOUDYCLEARFCleveland Clinic FoundationColor (U)LT. YELLOWYELLOWUniversity Hospitals Ahuja Medical CenterLaboratory - UrinalysisOrdered By: (Glynn) Cristy Prince on 91-22-0826Fjecanmqr esterase Test strip Ql (U)SMALLAbnormalNEGATIVEUniversity Hospitals Ahuja Medical CenterMucus Ql (Urine sed)NONE SEENNONE SEENUniversity Hospitals Ahuja Medical CenterNitrite Ql (U)NegativeNEGATIVEUniversity Hospitals Ahuja Medical Center Protein Ql (U)NegativeNEG/TRACEUniversity Hospitals Ahuja Medical CenterLeukocytes [#/volume] corrected for nucleated erythrocytes in Blood by Automated coun Ordered By: (Glynn) Cristy Prince on 39-10-7630EVE corrected for nucl RBC Auto (Bld) [#/Vol]8.1 10 3/uL4.0-11.0University Hospitals Ahuja Medical CenterLymphocytes Auto (Bld) [#/Vol]Ordered By: (Glynn) Cristy Prince on 32-36-8130Eychdjmifjx (Bld) [#/Vol]1.2 10 3/uL1.2-3.8[facility] Ahuja Medical CenterLymphocytes/100 WBC Auto (Bld)Ordered By: (Glynn) Cristy Prince on 94-72-3811Uixsavemjbf/100 WBC (Bld)14.4 %Low20.5-60.0[facility] Auto (RBC) [Entitic mass]Ordered By: (Glynn) Cristy Prince on 03-31-6880UXA (RBC) [Entitic mass]28.9 pg25.9-34.0[facility] Auto (RBC) [Mass/Vol]Ordered By: (Monisha Prince on 39-53-2260FYRV (RBC) [Mass/Vol] 32.1 g/dL29.9-35.2FCleveland Clinic FoundationMCV Auto (RBC) [Entitic vol] Ordered By: (Glynn) Cristy Prince on 98-25-2271PYY (RBC) [Entitic vol]90.0 fL 80.0-94.0[facility] Ahuja Medical CenterMonocytes Auto (Bld) [#/Vol]Ordered By: (Glynn) Cristy Prince on 43-98-7918Hnedhgulh (Bld) [#/Vol]0.7 10 3/uL 0.3-0.8[facility]huja Medical CenterMonocytes/100 WBC Auto (Bld)Ordered By: Cristy Prince ([place]) on 98-22-1805Tvjfparxb/100 WBC (Bld)8.6 %1.7-12.0 [facility]huja Medical CenterNeutrophils Auto (Bld) [#/Vol]Ordered By: (Glynn) Cristy Prince on 47-49-6517Zvpjucxnqlb (Bld) [#/Vol]5.9 10 3/uL1.4-6.5 [facility]ja Medical CenterNeutrophils/100 WBC Auto (Bld)Ordered By: Cristy Prince ([place]) on 18-41-3234Qobwydkyzvx/100 WBC (Bld)72.8 %43.0-75.0 [facility]ja Medical CenterNo Panel InformationOrdered By: Cristy Prince ([place]) on 78-27-3759Vqwjg BacteriaSMALL #/HPFAbnormalNONE SEENUniversity Hospitals Ahuja Medical CenterUrine Culture ReflexedYE-Keenan Private HospitalUrine Microscopic ReviewYEDayton Osteopathic HospitalUrine Occult BloodNegativeNEGATIVEUniversity Hospitals Ahuja Medical CenterUrine Other CastsNONE SEEN #/LPFNONE SEENUniversity Hospitals Ahuja Medical CenterUrine Other CrystalsNone Seen #/HPFNone [facility] HospitalUrine RBC0-2 #/HPF0-2FCleveland Clinic FoundationUrine Squamous Epithelial CellsNONE SEEN #/LPFNONE/RARE [facility] Medical CenterUrine UVU12-94 #/HPFAbnormalNONE SEENUniversity Hospitals Ahuja Medical CenterYES-FRMCUniversity Hospitals Ahuja Medical CenterYESUniversity Hospitals Ahuja Medical CenterNONE SEEN #/LPFNONE/RAREUniversity Hospitals Ahuja Medical Center NegativeNEG/TRACEUniversity Hospitals Ahuja Medical CenterNone Seen #/HPFNone Seen [facility] HospitalMALL #/HPFAbnormalNONE SEENMartins Ferry HospitalL CLOUDYCLEARFCleveland Clinic FoundationNONE SEENNONE SEEN [facility]ja Medical CenterLT. YELLOWYELLOWUniversity Hospitals Ahuja Medical Center0-2 #/HPF0-2FC[facility] Clinic Foundation10-20 #/HPFAbnormalNONE SEEN [facility]erry HospitalMALLAbnormalNEGATIVEUniversity Hospitals Ahuja Medical Center5.55.0-9.0[facility]<=1.738Igdnmxze6.005-1.025 [facility]0.2 EU/dL0.2-1.0[facility]ja Medical CenterEosinophils # (Auto)0.2 10 3/uL0.0-0.7FCleveland Clinic Foundation Immature Granulocyte # (Auto)0.04 10 3/uLHigh0.00-0.03[facility]huja Medical CenterTroponin I High Sthpcvdzbkd230.3 pg/mLCritically high4.0-76.1FCleveland Clinic FoundationComment on above:RESULTS CALLED TO YARIEL Prince, BALLASTER @BY Holland Noel, [facility] 2156CUT-OFF POINTS HAVE BEEN ESTABLISHED BASED ON THE FOURTHUNIVERSAL DEFINITION OF MYOCARDIAL INFARCTION. THE UPPERREFERENCE LIMIT (URL) OF TROPONIN, DEFINED THE 99THPERCENTILE OF cTnI DISTRIBUTION IN A REFERENCE POPULATION,HAS BEEN CONFIRMED THE DECISION THRESHOLD FOR MIDIAGNOSIS.99TH PERCENTILE = 76.2 PG/MLNOTE: HIGH-SENSITIVITY TROPONIN ASSAY IS NOT INTENDED TO BEUSED IN ISOLATION BUT SHOULD BE INTERPRETED IN CONJUNCTIONWITHOTHER DIAGNOSTIC AND CLINICAL INFORMATION.131.3 pg/mLCritically high4.0-76.1FCleveland Clinic Foundation2.7 g/dLLow3.4-5.0[facility]0.2 10 3/uL0.0-0.7FCleveland Clinic Foundation143 U/TYxqg00-697WipwzxktvUniversity Hospitals Ahuja Medical Center30 U/X08-94ZrnzrdofgUniversity Hospitals Ahuja Medical Center42 U/KDser78-38KiomxqezgUniversity Hospitals Ahuja Medical Center18.0[facility]0.04 10 3/uLHigh0.00-0.03[facility]24.0 mg/dLHigh7.0-18.0[facility]0.5 %0.0-0.5 [facility]8.9 mg/dL8.5-10.1FCleveland Clinic Foundation97 mmol/KNjy95-531RnbezpndhUniversity Hospitals Ahuja Medical Center24.8 mmol/L21.0-32.0 [facility]1.33 mg/dLHigh0.70-1.30[facility]>60>=60 mL/min/1.73m 2FCleveland Clinic Foundation92 mg/dL 74-106[facility]5.1 mmol/L3.5-5.1FCleveland Clinic Foundation131 mmol/JCyf463-763PtsipasvfUniversity Hospitals Ahuja Medical Center0.5 mg/dL 0.2-1.0[facility]6.9 g/dL6.4-8.2FCleveland Clinic FoundationPlatelet mean volume Auto (Bld) [Entitic vol]Ordered By: Cristy Prince ([place]) on 40-36-5088Cffsgguk mean volume (Bld) [Entitic vol]10.6 fL 9.5-13.5FCleveland Clinic FoundationPlatelets Auto (Bld) [#/Vol]Ordered By: Cristy Prince ([place]) on 20-70-0829Swehunekj (Bld) [#/Vol]244 10 3/hS787-319 [facility]ja Medical CenterRBC Auto (Bld) [#/Vol]Ordered By: Cristy Prince ([place]) on 79-65-8479GVK (Bld) [#/Vol]3.01 10 6/uLLow4.70-6.10Martins Ferry Hospitalerum or plasma albumin/globulin mass ratioOrdered By: Cristy Prince ([place]) on 12-59-9968Clkcmmp/Globulin [Mass ratio]0.6 {ratio} [facility] CenterSerum or plasma anion gap determinationOrdered By: (Glynn) Cristy Prince on 28-98-2418Lbgza gap [Moles/Vol]14.3 mmol/L [facility]huja Medical CenterUrine Cultureon 96-93-3452Vixysrhx identified Cx Nom (U)ORGANISM: Bibiana albicans (O:CANALB) [place] Count >100,000 PERFORMED BY: [facility] [address] [place] [address] PATHOLOGIST UNDERBASTER MARY SONI M.D.NormalThe Levine [facility]'S Hospital Physician GroupComment on above: Performed By: #### CUU ####[address] [address] USAUrine cultureOrdered By: Liliana Miller on 35-55-1404Dyipqaoc identified Cx Nom (U)Bibiana albicansAbKettering Health DaytonYeast detection in urine sediment by light microscopy Ordered By: (Monisha Muniz Niki on 96-09-6570Ivgfq LM Ql (Urine sed)SEEN AbnormalNONE Dayton Children's HospitalComment on above:Many budding yeastModerate HyphaeBasophils [#/volume] in Blood by Automated countOrdered By: Michele Knight on 21-18-6843Yvbwqqwhw (Bld) [#/Vol]0.0 10*3/uLNormal0.0-0.2 [facility] Ahuja Medical CenterComment on above:Result Comment: PERFORMED BY:[id number] [place], [place] [phone] MEDICAL DIRECTORMARY SONI M.D.Performed By: #### CBC ####[address] [address] [place] Basophils/100 leukocytes in Blood by Automated countOrdered By: Michele Knight on 59-34-7757Repolwboy/100 WBC (Bld)0.7 %Normal.[facility] Comment on above:Performed By: #### CBC ####[address] [address] USAComplete Blood Count Auto Diffon 12-18-2024 Mean Corpuscular HGB Conc32.6 g/ySRopfll48.5-35.6[facility] Comment on above:Performed By: #### CBC ####[id number] USANRBC%0.0 /100{WBC}Normal0-0.5The [facility]S Hospital Physician GroupComment on above:Performed By: #### CBC ####[id number] USAWhite Blood Count3.6 [CFU]/mL Low4.1-10.5The [facility] Hospital Physician GroupComment on above:Performed By: #### CBC ####[place] [address] [place] Eosinophils [#/volume] in Blood by Automated countOrdered By: Michele Eugene on 73-83-2666Jfbtkqdhqdc (Bld) [#/Vol]0.2 10*3/uLNormal0.0-0.45[facility]huja Medical CenterComment on above:Performed By: #### CBC ####[id number] USAEosinophils/100 leukocytes in Blood by Automated countOrdered By: Michele Eugene on 57-33-7364Sqomkcfmxvj/100 WBC (Bld)6.5 %Normal.[facility] Ahuja Medical CenterComment on above:Performed By: #### CBC ####[place] [address] USAErythrocyte distribution width [Ratio] by Automated countOrdered By: Michele Knight on 52-42-0483Axdvcjyhmyx distribution width (RBC) [Ratio]18.1 %High 12.0-14.8[facility]huja Medical CenterComment on above:Performed By: #### CBC ####[id number] [place] Erythrocytes [#/volume] in Blood by Automated countOrdered By: Michele Knight on 29-82-7603NRO (Bld) [#/Vol]3.00 10*6/uLLow3.90-5.60[facility]huja Medical CenterComment on above:Performed By: #### CBC ####[id number] USAHematocrit [Volume Fraction] of Blood by Automated countOrdered By: Michele Knight on 84-81-7050Fxuchxhafn (Bld) [Volume fraction]26.3 %Low38.8-50.0[facility]huja Medical CenterComment on above: Performed By: #### CBC ####[id number] USAHemoglobin [Mass/volume] in BloodOrdered By: Michele Knight on 09-89-7991Xqtlbqglfb (Bld) [Mass/Vol]8.6 g/dLLow13.0-17.0[facility]huja Medical CenterComment on above:Performed By: #### CBC ####[id number] USALeukocytes [#/volume] corrected for nucleated erythrocytes in Blood by Automated counOrdered By: Michele Knight on 27-67-1197DAH corrected for nucl RBC Auto (Bld) [#/Vol]3.6 10*3/uLLow4.1-10.5FCleveland Clinic FoundationLeukocytes [#/volume] in Blood by Automated countOrdered By: Michele Knight on 85-75-5886CLL (Bld) [#/Vol] 3.6 10*3/uLLow4.1-10.5FCleveland Clinic FoundationComment on above: Performed By: #### CBC ####[id number] USALymphocytes [#/volume] in Blood by Automated count Ordered By: Michele Knight on 31-61-7546Ijufrlbnxkt (Bld) [#/Vol]0.7 10*3/uLLow 1.00-4.8[facility]huja Medical CenterComment on above:Performed By: #### CBC ####[id number] [place] Lymphocytes/100 leukocytes in Blood by Automated countOrdered By: Michele Knight on 07-90-8284Zenxitumggz/100 WBC (Bld)18.6 %Normal.[facility]huja Medical CenterComment on above:Performed By: #### CBC ####[id number] [facility]ITALMCH [Entitic mass] by Automated count Ordered By: Michele Knight on 04-39-1883CZL (RBC) [Entitic mass]28.6 pgNormal 27.5-35.2FCleveland Clinic FoundationComment on above:Performed By: #### CBC ####[address] MCHC Auto (RBC) [Mass/Vol]Ordered By: Michele Knight on 84-92-4355PONZ (RBC) [Mass/Vol]32.6 g/dL32.5-35.6FCleveland Clinic FoundationMCV [Entitic volume] by Automated countOrdered By: Michele Knight on 48-54-5132JMT (RBC) [Entitic vol]87.8 mMHhwbvw49.5-101[facility]huja Medical CenterComment on above:Performed By: #### CBC ####[id number] USAMonocytes [#/volume] in Blood by Automated count Ordered By: Michele Knight on 91-31-6847Tcbfnvnpd (Bld) [#/Vol]0.3 10*3/uLNormal 0.0-0.8[facility]huja Medical CenterComment on above:Performed By: #### CBC ####[id number] [place] Monocytes/100 leukocytes in Blood by Automated countOrdered By: Michele Knight on 80-72-6603Hikomarks/100 WBC (Bld)8.6 %Normal.[facility] Comment on above:Performed By: #### CBC ####[id number] USANeutrophils [#/volume] in Blood by Automated countOrdered By: Michele Knight on 81-15-4523Hyigruwxqsg (Bld) [#/Vol]2.4 10*3/uL Normal1.8-7.7FCleveland Clinic FoundationComment on above:Performed By: #### CBC ####[address] [address] USANeutrophils/100 leukocytes in Blood by Automated countOrdered By: Michele Knight on 22-17-4977Qotpkusomse/100 WBC (Bld)65.6 %Normal.[facility]huja Medical CenterComment on above:Performed By: #### CBC ####[address] [address] USANucleated erythrocytes [Presence] in Blood by Automated countOrdered By: Michele Knight on 12-18-2024 Nucleated RBC Auto Ql (Bld)0.0 /100{WBC}0-0.5FC[facility] Foundation Platelet mean volume [Entitic volume] in Blood by Automated countOrdered By: Michele Knight on 67-33-4581Agakorua mean volume (Bld) [Entitic vol]7.4 fLNormal 6.6-10.1FCleveland Clinic FoundationComment on above:Performed By: #### CBC ####[address] [address] [place] Platelets [#/volume] in Blood by Automated countOrdered By: Michele Knight on 61-25-7001Srlcviikn (Bld) [#/Vol]262 10*3/jDXteszk301-666FzjvrfkaqUniversity Hospitals Ahuja Medical CenterComment on above:Performed By: #### CBC ####[address] [address] USABasic Metabolic Panelon 91-94-4612Lznckqrvcv Clr Calc Sbjszyoz82.08[facility] Comment on above:Result Comment: PERFORMED BY:[address] [place], [place] [phone] MEDICAL DIRECTORMARY SONI M.D.Performed By: #### BMP, CBC ####[address] [address] USAGFR/1.73 sq M.predicted MDRD (S/P/Bld) [Vol rate/Area]mL/min/{1.73_m2}NormalThe [facility]ine [facility] Group Comment on above:Performed By: #### BMP, CBC ####[address] [address] USACalcium [Mass/volume] in Serum or PlasmaOrdered By: Akash Mccartney on 08-60-1306Kgqzszq [Mass/Vol]8.4 mg/dL Low8.6-10.3FCleveland Clinic FoundationComment on above:Performed By: #### BMP, CBC ####[address] [address] USACapillary blood glucose measurement by glucometer (mass/volume)Ordered By: Akash Mccartney on 55-95-9973Xixwgvv [Mass/Vol]108 mg/dLNormalUniversity Hospitals Ahuja Medical CenterComment on above:Random Glucose Reference Range is dependent [...] Serum or PlasmaOrdered By: Akash Mccartney on 61-14-0140ZZ2 [Moles/Vol]26.3 mmol/L Axqjts54.0-31.0[facility]huja Medical CenterComment on above:Performed By: #### BMP, CBC ####[address] [address] USAChloride [Moles/volume] in Serum or PlasmaOrdered By: Akash Mccartney on 59-67-6114Gntomymw [Moles/Vol]103 mmol/SEpmslm13-531VwqvhzaahUniversity Hospitals Ahuja Medical CenterComment on above:Performed By: #### BMP, CBC ####[address] [address] [facility] Complete Blood Count Auto Diffon 77-69-2391Oqxgzjklc (Bld) [#/Vol]0.0 10*3/uL Normal0.0-0.2The [facility] Hospital Physician GroupComment on above:Result Comment: PERFORMED BY:[address] [place], [place] [phone] MEDICAL DIRECTORMARY SONI M.D.Performed By: #### BMP, CBC ####[address] [address] USABasophils/100 WBC (Bld)0.8 %Normal.The [facility] Hospital Physician GroupComment on above:Performed By: #### BMP, CBC ####[address] [address] USAEosinophils (Bld) [#/Vol]0.2 10*3/uLNormal 0.0-0.45The [facility] Hospital Physician GroupComment on above:Performed By: #### BMP, CBC ####[address] [address] [place] Eosinophils/100 WBC (Bld)6.2 %Normal.The [facility] Hospital Physician GroupComment on above:Performed By: #### BMP, CBC ####[address] [address] USAErythrocyte distribution width (RBC) [Ratio]18.1 % High12.0-14.8The [facility] Hospital Physician GroupComment on above:Performed By: #### BMP, CBC ####[address] [address] USAHematocrit (Bld) [Volume fraction]24.1 %Low38.8-50.0The [facility] Hospital Physician GroupComment on above:Performed By: #### BMP, CBC ####[address] [address] USAHemoglobin (Bld) [Mass/Vol]7.9 g/dLLow 13.0-17.0The [facility] Hospital Physician GroupComment on above:Performed By: #### BMP, CBC ####[place] [address] [place] Lymphocytes (Bld) [#/Vol]0.6 10*3/uLLow1.00-4.8[facility] Comment on above:Performed By: #### BMP, CBC ####[place] [address] USALymphocytes/100 WBC (Bld)17.9 %Normal. The [facility] Hospital Physician GroupComment on above:Performed By: #### BMP, CBC ####[address] (RBC) [Entitic mass]29.0 lqFexkqi23.5-35.2The [facility] Hospital Physician GroupComment on above:Performed By: #### BMP, CBC ####[address] (RBC) [Entitic vol]87.9 lYQmwpyk98.5-101 [facility] Hospital Physician GroupComment on above:Performed By: #### BMP, CBC ####[place] [address] USAMean Corpuscular HGB Conc33.0 g/qIFlovkl35.5-35.6The [facility] Hospital Physician GroupComment on above:Performed By: #### BMP, CBC ####[place] [address] USAMonocytes (Bld) [#/Vol]0.4 10*3/uLNormal 0.0-0.8The [facility] Hospital Physician GroupComment on above:Performed By: #### BMP, CBC ####[id number] [place] Monocytes/100 WBC (Bld)10.4 %Normal.[facility] Physician GroupComment on above:Performed By: #### BMP, CBC ####[place] [address] USANeutrophils (Bld) [#/Vol]2.2 10*3/uLNormal1.8-7.7The [facility] Hospital Physician GroupComment on above:Performed By: #### BMP, CBC ####[place] [address] [place] Neutrophils/100 WBC (Bld)64.7 %Normal.The [facility] Hospital Physician GroupComment on above:Performed By: #### BMP, CBC ####[place] [address] USANRBC%0.1 /100{WBC}Normal0-0.5The [facility] Hospital Physician GroupComment on above:Performed By: #### BMP, CBC ####[place] [address] USAPlatelet mean volume (Bld) [Entitic vol]7.3 fLNormal6.6-10.1The [facility] Hospital Physician GroupComment on above: Performed By: #### BMP, CBC ####[place] [address] USAPlatelets (Bld) [#/Vol]195 10*3/sHAebcqm535-959Tea [facility] Physician GroupComment on above:Performed By: #### BMP, CBC ####[place] [address] USARBC (Bld) [#/Vol]2.74 10*6/uLLow3.90-5.60The [facility] Hospital Physician GroupComment on above:Performed By: #### BMP, CBC ####[place] [address] USAWBC (Bld) [#/Vol]3.4 10*3/uLLow4.1-10.5The [facility] Hospital Physician GroupComment on above:Performed By: #### BMP, CBC ####[place] [address] USAWhite Blood Count3.4 [CFU]/mLLow4.1-10.5The [facility] Physician GroupComment on above:Performed By: #### BMP, CBC ####[place] [address] USACreatinine [Mass/volume] in Serum or PlasmaOrdered By: Akash Mccartney on 13-69-2970Mahytgulky [Mass/Vol]1.20 mg/dLNormal0.70-1.30[facility]ja Medical CenterComment on above:Performed By: #### BMP, CBC ####[facility] [address] [place] [address] [place] Glomerular filtration rate [Volume Rate/Area] in Serum, Plasma or Blood by CreatinineOrdered By: Akash Mccartney on 67-76-3924Mhxfizoyts filtration rate [Volume Rate/Area] in Serum, Plasma or Blood by Creatinine> 60.0 mL/Min [facility]ja Medical CenterGlucose Poct Glucometerson 27-16-7075Mauskia0 Glu2: Cleaned [facility] Physician GroupComment on above:Result Comment: PERFORMED BY:[address] [place], [place] [phone] MEDICAL MARY KATE SONI M.D.Performed By: #### GLULS ####Point of Care testing,Glucose [Mass/volume] in Serum or PlasmaOrdered By: Akash Mccartney on 40-58-2687Awpnnze [Mass/Vol]84 mg/dL Ftdktk69-724NcdcbsvqfUniversity Hospitals Ahuja Medical CenterComment on above:ADA recommended reference rangeRandom Glucose Reference [...] recommended reference rangePerformed By: #### BMP, CBC ####[facility] [address] [place] [address] USANo Panel InformationOrdered By: Akash Mccartney on 12-17-2024 Bedside Glucose CommentGlu2: cleaned [facility] HospitalGlu2: cleaned [facility] HospitalPharmacy Creatinine Clearance (Chem47.08[facility]47.08[facility] Medical CenterPotassium [Moles/volume] in Serum or PlasmaOrdered By: Akash Mccartney on 95-81-1073Dbxshtlxu [Moles/Vol]3.8 mmol/LNormal3.5-5.1FCleveland Clinic FoundationComment on above:Performed By: #### BMP, CBC ####[address] [place] [address] USASerum or plasma anion gap determinationOrdered By: Akash Mccartney on 87-28-1806Ovlvb gap [Moles/Vol]9.5 mmol/LNormal6.0-15.0[facility]ja Medical CenterComment on above:Performed By: #### BMP, CBC ####[address] [place] [address] USASodium [Moles/volume] in Serum or PlasmaOrdered By: Akash Mccartney on 55-94-0075Axtons [Moles/Vol]135 mmol/KXef281-576LsurymbuwUniversity Hospitals Ahuja Medical CenterComment on above:Performed By: #### BMP, CBC ####[address] [address] USAUrea nitrogen [Mass/volume] in Serum or PlasmaOrdered By: Akash Mccartney on 81-15-3742Nqjb nitrogen [Mass/Vol]20 mg/dLNormal7-25[facility]ja Medical CenterComment on above:Performed By: #### BMP, CBC ####[address] [place] [address] USAGlucose Poct Glucometerson 30-55-9071Khbgdmh [Mass/Vol]157 mg/dLNoCone Health Physician GroupComment on above:Result Comment: Random Glucose Reference Range is dependent on time and content of last meal. Glucose of more than 200 mg/dL in a nonstressed, ambulatory subject supports the diagnosis of Diabetes Mellitus.PERFORMED BY:[address] [place], [place] [phone] MEDICAL DIRECTORMARIO S NAE M.D.Performed By: #### GLULS ####Point of Care testing,Alanine aminotransferase [Enzymatic activity/volume] in Serum or PlasmaOrdered By: Akash Mccartney on 12-15-2024 ALT [Catalytic activity/Vol]10 U/LNormal7-52[facility] Comment on above:Performed By: #### CMP, CBC ####[address] [place] [address] USAAlbumin [Mass/volume] in Serum or Plasma by Bromocresol green (BCG) dye binding methoOrdered By: Akash Mccartney on 11-14-5513Fpgzmxs BCG dye [Mass/Vol]3.4 g/dLLow3.5-5.7FCleveland Clinic FoundationAlkaline phosphatase [Enzymatic activity/volume] in Serum or PlasmaOrdered By: Akash Mccartney on 73-44-9471ROI [Catalytic activity/Vol]99 U/ERetqiu77-107IonxrvzlgUniversity Hospitals Ahuja Medical CenterComment on above:Performed By: #### CMP, CBC ####[place] [id number] USAAspartate aminotransferase [Enzymatic activity/volume] in Serum or PlasmaOrdered By: Akash Mccartney on 12-15-2024 AST [Catalytic activity/Vol]23 U/XRhzdsz04-67HdelhzjqvUniversity Hospitals Ahuja Medical Center Comment on above:Performed By: #### CMP, CBC ####[place] [id number] USABilirubin.total [Mass/volume] in Serum or PlasmaOrdered By: Akash Mccartney on 88-42-8507Vbjkweqzy [Mass/Vol]0.8 mg/dLNormal0.3-1.0[facility]ja Medical CenterComment on above:Performed By: #### CMP, CBC ####[address] [place] [address] USAComplete Blood Count Auto Diffon 60-74-5261Ujpzyyxpw (Bld) [#/Vol] 0.0 10*3/uLNormal0.0-0.2The [facility] Physician GroupComment on above:Result Comment: PERFORMED BY:[address] [place], [place] [phone] MEDICAL DIRECTORMARY SONI M.D.Performed By: #### CMP, CBC ####[address] [address] USABasophils/100 WBC (Bld)0.5 %Normal.[facility] Comment on above:Performed By: #### CMP, CBC ####[address] [address] USAEosinophils (Bld) [#/Vol]0.2 10*3/uL Normal0.0-0.45[facility] Physician GroupComment on above:Performed By: #### CMP, CBC ####[address] [address] USAEosinophils/100 WBC (Bld)4.6 %Normal.[facility] Physician GroupComment on above:Performed By: #### CMP, CBC ####[address] [address] USAErythrocyte distribution width (RBC) [Ratio]18.3 % High12.0-14.8[facility] Physician GroupComment on above:Performed By: #### CMP, CBC ####[address] [address] USAHematocrit (Bld) [Volume fraction]29.0 %Low38.8-50.0[facility] Physician GroupComment on above:Performed By: #### CMP, CBC ####[address] [address] USAHemoglobin (Bld) [Mass/Vol]9.5 g/dLLow 13.0-17.0[facility] Physician GroupComment on above:Performed By: #### CMP, CBC ####[address] [address] [place] Lymphocytes (Bld) [#/Vol]0.4 10*3/uLLow1.00-4.8[facility] Comment on above:Performed By: #### CMP, CBC ####[place] [id number] USALymphocytes/100 WBC (Bld)7.7 %Normal. [facility] Physician GroupComment on above:Performed By: #### CMP, CBC ####[address] StreetMCH (RBC) [Entitic mass]29.0 htDoibvw32.5-35.2The [facility] Physician GroupComment on above:Performed By: #### CMP, CBC ####[address] StreetMCV (RBC) [Entitic vol]88.4 hWPfwlnl25.5-101 The [facility] Physician GroupComment on above:Performed By: #### CMP, CBC ####[place] [address] USAMean Corpuscular HGB Conc32.8 g/vIUevnac74.5-35.6The [facility] Physician GroupComment on above:Performed By: #### CMP, CBC ####[place] [address] USAMonocytes (Bld) [#/Vol]0.2 10*3/uLNormal 0.0-0.8The [facility] Physician GroupComment on above:Performed By: #### CMP, CBC ####[place] [id number] [place] Monocytes/100 WBC (Bld)3.3 %Normal.The [facility] Physician GroupComment on above:Performed By: #### CMP, CBC ####[place] [id number] USANeutrophils (Bld) [#/Vol]4.4 10*3/uLNormal1.8-7.7The [facility] Physician GroupComment on above:Performed By: #### CMP, CBC ####[place] [id number] [place] Neutrophils/100 WBC (Bld)83.9 %Normal.The [facility] Physician GroupComment on above:Performed By: #### CMP, CBC ####[place] [address] USANRBC%0.2 /100{WBC}Normal0-0.5The [facility] Physician GroupComment on above:Performed By: #### CMP, CBC ####[place] [address] USAPlatelet mean volume (Bld) [Entitic vol]7.5 fLNormal6.6-10.1The [facility] Physician GroupComment on above: Performed By: #### CMP, CBC ####[place] [address] USAPlatelets (Bld) [#/Vol]280 10*3/fJEaqgoa801-841Jrz [facility] Physician GroupComment on above:Performed By: #### CMP, CBC ####[place] [address] USARBC (Bld) [#/Vol]3.27 10*6/uLLow3.90-5.60The [facility] Physician GroupComment on above:Performed By: #### CMP, CBC ####[place] [address] USAWBC (Bld) [#/Vol]5.2 10*3/uLNormal4.1-10.5The [facility] Physician GroupComment on above:Performed By: #### CMP, CBC ####[place] [address] USAWhite Blood Count5.2 [CFU]/mLNormal4.1-10.5The [facility] Physician GroupComment on above:Performed By: #### CMP, CBC ####[place] [address] USAComprehensive Metabolic Panelon 80-16-2699Bhzgvoc [Mass/Vol]3.4 g/dLLow3.5-5.7The [facility] Physician GroupComment on above: Performed By: #### CMP, CBC ####[address] [address] USAAnion gap [Moles/Vol]10.3 mmol/LNormal6.0-15.0The [facility] Physician GroupComment on above:Performed By: #### CMP, CBC ####[address] [address] USACalcium [Mass/Vol]8.9 mg/dLNormal8.6-10.3The [facility] Physician GroupComment on above: Performed By: #### CMP, CBC ####[address] [address] USAChloride [Moles/Vol]103 mmol/UCchawe12-014Byt [facility] Physician GroupComment on above:Performed By: #### CMP, CBC ####[place] [id number] USACO2 [Moles/Vol]26.6 mmol/EWwggjq10.0-31.0The [facility] Physician GroupComment on above:Performed By: #### CMP, CBC ####[place] [id number] USACreatinine [Mass/Vol]1.21 mg/dLNormal0.70-1.30The [facility] Physician GroupComment on above:Performed By: #### CMP, CBC ####[address] [address] [place] Creatinine Clr Calc Fphyggrj34.69NormalThe [facility] Physician GroupComment on above:Result Comment: PERFORMED BY:[address] [place], [place] [phone] MEDICAL MARY KATE SONI M.D.Performed By: #### CMP, CBC ####[address] [address] USAGFR/1.73 sq M.predicted MDRD (S/P/Bld) [Vol rate/Area]59.409 mL/min/{1.73_m2}NormalThe [facility] Physician GroupComment on above:Performed By: #### CMP, CBC ####[address] [place] [address] USAGlucose [Mass/Vol]83 mg/dMMoaapo33-137Xha [facility] Physician GroupComment on above:Result Comment: Random Glucose Reference Range is dependent on time and content of last meal. Glucose of more than 200 mg/dL in a nonstressed, ambulatory subject supports the diagnosis of Diabetes Mellitus. ADA recommended reference rangePerformed By: #### CMP, CBC ####[address] [address] USAPotassium [Moles/Vol] 3.9 mmol/LNormal3.5-5.1[facility] HospitalComment on above:Performed By: #### CMP, CBC ####[place] [id number] USASodium [Moles/Vol]136 mmol/UTpmyus336-615Odz [facility] HospitalComment on above:Performed By: #### CMP, CBC ####[place] [id number] USAUrea nitrogen [Mass/Vol]16 mg/dL Normal7-25The [facility] HospitalComment on above:Performed By: #### CMP, CBC ####[place] [id number] [place] Protein [Mass/volume] in Serum or PlasmaOrdered By: Akash Mccartney on 46-94-2089Cfgkyic [Mass/Vol]6.6 g/dLNormal6.4-8.9[facility]ja Medical CenterComment on above:Performed By: #### CMP, CBC ####[place] [id number] USASerum globulin measurement by calculation (mass/volume)Ordered By: Akash Mccartney on 31-95-4516Opbyfcnz (S) [Mass/Vol]3.2 g/dLNormalUniversity Hospitals Ahuja Medical CenterComment on above: Performed By: #### CMP, CBC ####[place] [id number] USASerum or plasma albumin/globulin mass ratioOrdered By: Akash Mccartney on 94-69-6687Pzoyvlz/Globulin [Mass ratio]1.1 {ratio} NormalUniversity Hospitals Ahuja Medical CenterComment on above:Performed By: #### CMP, CBC ####[place] [id number] [facility] Complete Blood Count Auto Diffon 66-25-6398Iohhfzind (Bld) [#/Vol]0.0 10*3/uL Normal0.0-0.2The [facility] Physician GroupComment on above:Result Comment: PERFORMED BY:[address] [place], [place] [phone] MEDICAL DIRECTORMARY SONI M.D.Performed By: #### CBC, CMP ####[place] [address] USABasophils/100 WBC (Bld)0.7 %Normal.The [facility] Physician GroupComment on above:Performed By: #### CBC, CMP ####[place] [address] USAEosinophils (Bld) [#/Vol]0.3 10*3/uLNormal 0.0-0.45[facility]ician [facility] HospitalComment on above:Performed By: #### CBC, CMP ####[place] [address] [place] Eosinophils/100 WBC (Bld)5.4 %Normal.The [facility] Physician GroupComment on above:Performed By: #### CBC, CMP ####[place] [address] USAErythrocyte distribution width (RBC) [Ratio]18.3 % High12.0-14.8The [facility] Physician GroupComment on above:Performed By: #### CBC, CMP ####[place] [address] USAHematocrit (Bld) [Volume fraction]25.1 %Low38.8-50.0The [facility] Physician GroupComment on above:Performed By: #### CBC, CMP ####[place] [address] USAHemoglobin (Bld) [Mass/Vol]8.2 g/dLLow 13.0-17.0The [facility] Physician GroupComment on above:Performed By: #### CBC, CMP ####[place] [address] [place] Lymphocytes (Bld) [#/Vol]1.2 10*3/uLNormal1.00-4.8[facility] Comment on above:Performed By: #### CBC, CMP ####[place] [address] USALymphocytes/100 WBC (Bld)22.4 %Normal. The [facility] Physician GroupComment on above:Performed By: #### CBC, CMP ####[place] [address] USAMCH (RBC) [Entitic mass]28.5 apVqwzfb76.5-35.2The [facility] Physician GroupComment on above:Performed By: #### CBC, CMP ####[place] [address] USAMCV (RBC) [Entitic vol]87.6 xQZricvc69.5-101 The [facility] Physician GroupComment on above:Performed By: #### CBC, CMP ####[place] [address] USAMean Corpuscular HGB Conc32.5 g/xNCvzlor20.5-35.6The [facility] Physician GroupComment on above:Performed By: #### CBC, CMP ####[place] [address] USAMonocytes (Bld) [#/Vol]0.5 10*3/uLNormal 0.0-0.8The [facility] Physician GroupComment on above:Performed By: #### CBC, CMP ####[place] [address] [place] Monocytes/100 WBC (Bld)8.9 %Normal.The [facility] Physician GroupComment on above:Performed By: #### CBC, CMP ####[address] [address] USANeutrophils (Bld) [#/Vol]3.3 10*3/uLNormal1.8-7.7The [facility] Physician GroupComment on above:Performed By: #### CBC, CMP ####[place] [id number] [place] Neutrophils/100 WBC (Bld)62.6 %Normal.The [facility] Physician GroupComment on above:Performed By: #### CBC, CMP ####[place] [id number] USANRBC%0.1 /100{WBC}Normal0-0.5The [facility] Physician GroupComment on above:Performed By: #### CBC, CMP ####[place] [address] USAPlatelet mean volume (Bld) [Entitic vol]7.7 fLNormal6.6-10.1The [facility] Physician GroupComment on above: Performed By: #### CBC, CMP ####[address] [address] USAPlatelets (Bld) [#/Vol]230 10*3/mNTmkqmr271-772Lgg [facility] Physician GroupComment on above:Performed By: #### CBC, CMP ####[place] [address] USARBC (Bld) [#/Vol]2.87 10*6/uLLow3.90-5.60The [facility] Physician GroupComment on above:Performed By: #### CBC, CMP ####[address] [address] USAWBC (Bld) [#/Vol]5.3 10*3/uLNormal4.1-10.5The [facility] Physician GroupComment on above:Performed By: #### CBC, CMP ####[place] [id number] USAWhite Blood Count5.3 [CFU]/mLNormal4.1-10.5The [facility] Physician GroupComment on above:Performed By: #### CBC, CMP ####[place] [id number] USAComprehensive Metabolic Panelon 74-53-2454Bagohfp [Mass/Vol]3.1 g/dLLow3.5-5.7The [facility] Physician GroupComment on above: Performed By: #### CBC, CMP ####[place] [address] USAAlbumin/Globulin [Mass ratio]1.1 {ratio}NormalThe [facility] Physician GroupComment on above:Performed By: #### CBC, CMP ####[place] [address] USAALP [Catalytic activity/Vol]85 U/RYnsxms94-504Kpi [facility] Physician GroupComment on above:Performed By: #### CBC, CMP ####[place] [address] USAALT [Catalytic activity/Vol]10 U/LNormal7-52 The [facility] Physician GroupComment on above:Performed By: #### CBC, CMP ####[place] [id number] USAAnion gap [Moles/Vol]11.5 mmol/LNormal6.0-15.0The [facility] Physician GroupComment on above:Performed By: #### CBC, CMP ####[place] [id number] USAAST [Catalytic activity/Vol]25 U/INikyww08-75Zub [facility] Physician GroupComment on above:Performed By: #### CBC, CMP ####[place] [id number] [place] Bilirubin [Mass/Vol]0.6 mg/dLNormal0.3-1.0The [facility] Physician GroupComment on above:Performed By: #### CBC, CMP ####[place] [id number] USACalcium [Mass/Vol]8.3 mg/dLLow8.6-10.3The [facility] Physician GroupComment on above:Performed By: #### CBC, CMP ####[address] [address] [place] Chloride [Moles/Vol]104 mmol/MVvmska74-327Kpn [facility] Physician GroupComment on above:Performed By: #### CBC, CMP ####[place] [address] [place] [address] USACO2 [Moles/Vol]25.5 mmol/BVvjblx50.0-31.0The [facility] Physician GroupComment on above:Performed By: #### CBC, CMP ####[address] [address] [place] Creatinine [Mass/Vol]1.15 mg/dLNormal0.70-1.30[facility] Comment on above:Performed By: #### CBC, CMP ####[address] [address] USACreatinine Clr Calc Kaxqorhc96.10 NormalThe [facility]S Hospital Physician GroupComment on above:Result Comment: PERFORMED BY:[address] [place], [place] [phone] MEDICAL DIRECTORMARY SONI M.D.Performed By: #### CBC, CMP ####[address] [address] [place] GFR/1.73 sq M.predicted MDRD (S/P/Bld) [Vol rate/Area]mL/min/{1.73_m2}NormalThe [facility] Physician GroupComment on above:Performed By: #### CBC, CMP ####[address] [address] [place] Globulin (S) [Mass/Vol]2.8 g/dLNormalThe [facility] Physician GroupComment on above:Performed By: #### CBC, CMP ####[address] [address] USAGlucose [Mass/Vol]81 mg/eLTohrja92-740Jzw [facility] Physician GroupComment on above:Result Comment: Random Glucose Reference Range is dependent on time and content of last meal. Glucose of more than 200 mg/dL in a nonstressed, ambulatory subject supports the diagnosis of Diabetes Mellitus. ADA recommended reference rangePerformed By: #### CBC, CMP ####[place] [address] [place] [address] USAPotassium [Moles/Vol] 4.0 mmol/LNormal3.5-5.1The [facility] HospitalComment on above:Performed By: #### CBC, CMP ####[place] [address] [place] [address] USAProtein [Mass/Vol]5.9 g/dLLow6.4-8.9The [facility] Comment on above:Performed By: #### CBC, CMP ####[address] [address] USASodium [Moles/Vol]137 mmol/LNormal 136-145The [facility] Physician GroupComment on above:Performed By: #### CBC, CMP ####[address] [address] USAUrea nitrogen [Mass/Vol]16 mg/dLNormal7-25The [facility] HospitalComment on above:Performed By: #### CBC, CMP ####[address] [address] USAECH echo transthoracicon 93-02-3631UPW echo transthoracicNoCone Health Physician BrghaV8Q with Estimated Average Gluon 74-48-7762Lcyomoo [Mass/Vol]111 mg/dLNoCone Health Physician [facility] HospitalComment on above:Result Comment: PERFORMED BY:[address] [place], [place] [phone] MEDICAL DIRECTORMARY SONI M.D.Performed By: #### ELDER, PTT, CMP, FE and TIBC, PT, A1C WTH eA, LIPID, MG, [id number], HS TROP, CBC ####[address] [address] USABlood estimated average glucose determination by estimation from glycated hemoglobinOrdered By: Akash Mccartney on 12-13-2024 Average glucose Estimated from glycated hemoglobin (Bld) [Mass/Vol]111 mg/dL [facility] Medical CenterCholesterol [Mass/volume] in Serum or Plasma Ordered By: Akash Mccartney on 18-46-8262Cdrikygzasp [Mass/Vol]89 mg/dLLow 140-200[facility]ja Medical CenterComment on above:Chol less than 200 mg/dl low riskChol 201-239 mg/dl borderline riskChol 240 mg/dl and greater high riskOrder Comment: FASTING YResult Comment: Chol less than 200 mg/dl low risk Chol 201-239 mg/dl borderline risk Chol 240 mg/dland greater high riskPerformed By: #### ELDER, PTT, CMP, FE and TIBC, PT, A1C WTH eA, LIPID, MG, [id number], HS TROP, CBC ####[facility] [address] [place] [address] USACholesterol in HDL [Mass/volume] in Serum or PlasmaOrdered By: Akash Mccartney on 28-44-1879Pzdcwowqvbu in HDL [Mass/Vol]43 mg/gQAfwofz66-76WnugifwheUniversity Hospitals Ahuja Medical CenterComment on above:HDL CHOL ATP-III CLASSIFICATION Cardiovascular RiskHDL > or equal to 60 mg/dL LOWHDL < 40 mg/dL HIGHOrder Comment: FASTING YResult Comment: HDL CHOL ATP-III CLASSIFICATION Cardiovascular Risk HDL > or equal to 60 mg/dL LOW HDL < 40 mg/dL HIGHPerformed By: #### ELDER, PTT, CMP, FE and TIBC, PT, A1C WTH eA, LIPID, MG, [id number], HS TROP, CBC ## ##[facility] [address] [place] [address] [place] Cholesterol in LDL Calc [Mass/Vol]Ordered By: Akash Mccartney on 12-13-2024 Cholesterol in LDL [Mass/Vol]35 mg/dL0-100[facility] Comment on above:LDL ATP III CLASSIFICATIONLDL less than 100 mg/dL OptimalLDL 100-129 mg/dL Near or above kbayqaiQND355-678 mg/dL Borderline highLDL 160-189 mg/dL HighLDL greater than 189 mg/dL Very highCholesterol in VLDL Calc [Mass/Vol]Ordered By: Akash Mccartney on 55-40-0201Matiajisivl in VLDL [Mass/Vol]11 mg/dLUniversity Hospitals Ahuja Medical CenterComplete Blood Count Auto Diffon 03-65-9507Qzcnytsgq (Bld) [#/Vol]0.0 10*3/uLNormal0.0-0.2The [facility] Physician GroupComment on above:Result Comment: PERFORMED BY:[address] [place], [place] [phone] MEDICAL DIRECTORMARY SONI M.D.Performed By: #### ELDER, PTT, CMP, FE and TIBC, PT, A1C WTH eA, LIPID, MG, [id number], HS TROP, CBC ####[address] [address] USABasophils/100 WBC (Bld)0.8 %Normal.The [facility] Physician GroupComment on above:Performed By: #### ELDER, PTT, CMP, FE and TIBC, PT, A1C WTH eA, LIPID, MG, [id number], HS TROP, CBC ####[address] [address] USAEosinophils (Bld) [#/Vol]0.4 10*3/uLNormal0.0-0.45The [facility] Physician GroupComment on above: Performed By: #### ELDER, PTT, CMP, FE and TIBC, PT, A1C WTH eA, LIPID, MG, [id number], HS TROP, CBC ####[address] [address] USAEosinophils/100 WBC (Bld)7.4 %Normal.The [facility] Physician GroupComment on above:Performed By: #### ELDER, PTT, CMP, FE and TIBC, PT, A1C WTH eA, LIPID, MG, [id number], HS TROP, CBC ####[address] [address] USAErythrocyte distribution width (RBC) [Ratio]18.2 %High12.0-14.8The [facility] Physician GroupComment on above: Performed By: #### ELDER, PTT, CMP, FE and TIBC, PT, A1C WTH eA, LIPID, MG, [id number], HS TROP, CBC ####[place] [address] USAHematocrit (Bld) [Volume fraction]23.9 %Low38.8-50.0 The [facility] Physician GroupComment on above:Performed By: #### ELDER, PTT, CMP, FE and TIBC, PT, A1C WTH eA, LIPID, MG, [id number], HS TROP, CBC ####[place] [id number] USAHemoglobin (Bld) [Mass/Vol]7.9 g/dLLow13.0-17.0The [facility] Physician GroupComment on above: Performed By: #### ELDER, PTT, CMP, FE and TIBC, PT, A1C WTH eA, LIPID, MG, [id number], HS TROP, CBC ####[place] [id number] USALymphocytes (Bld) [#/Vol]1.0 10*3/uLNormal1.00-4.8 The [facility] Physician GroupComment on above:Performed By: #### ELDER, PTT, CMP, FE and TIBC, PT, A1C WTH eA, LIPID, MG, [id number], HS TROP, CBC ####[place] [id number] USALymphocytes/100 WBC (Bld)19.1 %Normal.The [facility] Physician GroupComment on above:Performed By: #### ELDER, PTT, CMP, FE and TIBC, PT, A1C WTH eA, LIPID, MG, [id number], HS TROP, CBC ####[place] [id number] USAMCH (RBC) [Entitic mass]29.1 bpMaivvl36.5-35.2The [facility] Physician GroupComment on above:Performed By: #### ELDER, PTT, CMP, FE and TIBC, PT, A1C WTH eA, LIPID, MG, [id number], HS TROP, CBC ####[place] [id number] USAMCV (RBC) [Entitic vol]88.3 wBDhmcxa03.5-101The [facility] Physician GroupComment on above:Performed By: #### ELDER, PTT, CMP, FE and TIBC, PT, A1C WTH eA, LIPID, MG, [id number], HS TROP, CBC ####[place] [address] USAMean Corpuscular HGB Conc32.9 g/sTVbgaeq10.5-35.6The [facility] Physician GroupComment on above: Performed By: #### ELDER, PTT, CMP, FE and TIBC, PT, A1C WTH eA, LIPID, MG, [id number], HS TROP, CBC ####[place] [address] USAMonocytes (Bld) [#/Vol]0.4 10*3/uLNormal0.0-0.8The [facility] Physician GroupComment on above:Performed By: #### ELDER, PTT, CMP, FE and TIBC, PT, A1C WTH eA, LIPID, MG, [id number], HS TROP, CBC ####[place] [id number] USAMonocytes/100 WBC (Bld)7.4 %Normal.The [facility] Physician GroupComment on above:Performed By: #### ELDER, PTT, CMP, FE and TIBC, PT, A1C WTH eA, LIPID, MG, [id number], HS TROP, CBC ####[place] [id number] [place] Neutrophils (Bld) [#/Vol]3.4 10*3/uLNormal1.8-7.7The [facility] Comment on above:Performed By: #### ELDER, PTT, CMP, FE and TIBC, PT, A1C WTH eA, LIPID, MG, [id number], HS TROP, CBC ####[place] [id number] USANeutrophils/100 WBC (Bld)65.3 %Normal.The [facility] Physician GroupComment on above:Performed By: #### ELDER, PTT, CMP, FE and TIBC, PT, A1C WTH eA, LIPID, MG, [id number], HS TROP, CBC ####[place] [address] USANRBC%0.0 /100{WBC}Normal0-0.5 The [facility] Physician GroupComment on above:Performed By: #### ELDER, PTT, CMP, FE and TIBC, PT, A1C WTH eA, LIPID, MG, [id number], HS TROP, CBC ####[place] [address] USAPlatelet mean volume (Bld) [Entitic vol]7.8 fLNormal6.6-10.1The [facility] Physician GroupComment on above:Performed By: #### ELDER, PTT, CMP, FE and TIBC, PT, A1C WTH eA, LIPID, MG, [id number], HS TROP, CBC ####[place] [id number] USAPlatelets (Bld) [#/Vol]218 10*3/wAVpcaln705-080Nhi [facility] Physician GroupComment on above:Performed By: #### ELDER, PTT, CMP, FE and TIBC, PT, A1C WTH eA, LIPID, MG, [id number], HS TROP, CBC ####[place] [id number] USARBC (Bld) [#/Vol]2.71 10*6/uLLow3.90-5.60The [facility] Physician GroupComment on above:Performed By: #### ELDER, PTT, CMP, FE and TIBC, PT, A1C WTH eA, LIPID, MG, [id number], HS TROP, CBC ####[place] [id number] USAWBC (Bld) [#/Vol]5.2 10*3/uLNormal4.1-10.5The [facility] Physician GroupComment on above:Performed By: #### ELDER, PTT, CMP, FE and TIBC, PT, A1C WTH eA, LIPID, MG, [id number], HS TROP, CBC ####[address] [address] USAWhite Blood Count5.2 [CFU]/mLNormal4.1-10.5The [facility] Physician GroupComment on above:Performed By: #### ELDER, PTT, CMP, FE and TIBC, PT, A1C WTH eA, LIPID, MG, [id number], HS TROP, CBC ####[place] [id number] USAComprehensive Metabolic Panelon [id number] [Mass/Vol]3.1 g/dLLow3.5-5.7The [facility] Physician GroupComment on above:Order Comment: FASTING YPerformed By: #### ELDER, PTT, CMP, FE and TIBC, PT, A1C WTH eA, LIPID, MG, [id number], HS TROP, CBC ## ##[place] [id number] [place] Albumin/Globulin [Mass ratio]1.1 {ratio}NormalThe [facility] Comment on above:Order Comment: FASTING YPerformed By: #### ELDER, PTT, CMP, FE and TIBC, PT, A1C WTH eA, LIPID, MG, [id number], HS TROP, CBC ####[address] [address] USAALP [Catalytic activity/Vol]81 U/OKkvtom36-301Utm [facility] Physician GroupComment on above: Order Comment: FASTING YPerformed By: #### ELDER, PTT, CMP, FE and TIBC, PT, A1C WTH eA, LIPID, MG, [id number], HS TROP, CBC ####[address] [address] USAALT [Catalytic activity/Vol]11 U/L Normal7-52The [facility] Physician GroupComment on above:Order Comment: FASTING Y Performed By: #### ELDER, PTT, CMP, FE and TIBC, PT, A1C WTH eA, LIPID, MG, [id number], HS TROP, CBC ####[address] [address] USAAnion gap [Moles/Vol]9.5 mmol/LNormal6.0-15.0The [facility] Physician GroupComment on above:Order Comment: FASTING YPerformed By: #### ELDER, PTT, CMP, FE and TIBC, PT, A1C WTH eA, LIPID, MG, [id number], HS TROP, CBC ####[place] [id number] USAAST [Catalytic activity/Vol]33 U/VOzeknd31-62Mmw [facility] Physician GroupComment on above:Order Comment: FASTING YPerformed By: #### ELDER, PTT, CMP, FE and TIBC, PT, A1C WTH eA, LIPID, MG, [id number], HS TROP, CBC ####[address] [address] USABilirubin [Mass/Vol]0.7 mg/dL Normal0.3-1.0The [facility] Physician GroupComment on above:Order Comment: FASTING YPerformed By: #### ELDER, PTT, CMP, FE and TIBC, PT, A1C WTH eA, LIPID, MG, [id number], HS TROP, CBC ####[place] [id number] USACalcium [Mass/Vol]8.5 mg/dLLow8.6-10.3[facility] Physician GroupComment on above:Order Comment: FASTING YPerformed By: #### ELDER, PTT, CMP, FE and TIBC, PT, A1C WTH eA, LIPID, MG, [id number], HS TROP, CBC ## ##[address] [address] USAChloride [Moles/Vol]106 mmol/[id number] [facility] Physician GroupComment on above: Order Comment: FASTING YPerformed By: #### ELDER, PTT, CMP, FE and TIBC, PT, A1C WTH eA, LIPID, MG, [id number], HS TROP, CBC ####[place] [id number] USACO2 [Moles/Vol]24.1 mmol/LNormal 21.0-31.0[facility] Physician GroupComment on above:Order Comment: FASTING Y Performed By: #### ELDER, PTT, CMP, FE and TIBC, PT, A1C WTH eA, LIPID, MG, [id number], HS TROP, CBC ####[place] [address] USACreatinine [Mass/Vol]1.05 mg/dLNormal0.70-1.30[facility] Physician GroupComment on above:Order Comment: FASTING YPerformed By: #### ELDER, PTT, CMP, FE and TIBC, PT, A1C WTH eA, LIPID, MG, [id number], HS TROP, CBC ####[address] Creatinine Clr Calc Obkdrzia80.26NoCone Health Physician GroupComment on above:Order Comment: FASTING YPerformed By: #### ELDER, PTT, CMP, FE and TIBC, PT, A1C WTH eA, LIPID, MG, [id number], HS TROP, CBC ####[place] [id number] USAGFR/1.73 sq M.predicted MDRD (S/P/Bld) [Vol rate/Area]mL/min/{1.73_m2}NormalThe [facility] Hospital Physician GroupComment on above:Order Comment: FASTING YPerformed By: #### ELDER, PTT, CMP, FE and TIBC, PT, A1C WTH eA, LIPID, MG, [id number], HS TROP, CBC ####[place] [id number] [facility] HOSPITALGlobulin (S) [Mass/Vol]2.7 g/dLNormal [facility] Physician GroupComment on above:Order Comment: FASTING YPerformed By: #### ELDER, PTT, CMP, FE and TIBC, PT, A1C WTH eA, LIPID, MG, [id number], HS TROP, CBC ####[place] [id number] USAGlucose [Mass/Vol]78 mg/fKDmdxxq19-844Kcn [facility] Physician GroupComment on above:Order Comment: FASTING YResult Comment: Random Glucose Reference Range is dependent on time and content of last meal. Glucose of more than 200 mg/dL in a nonstressed, ambulatory subject supports the diagnosis of Diabetes Mellitus. ADA recommended reference rangePerformed By: #### ELDER, PTT, CMP, FE and TIBC, PT, A1C WTH eA, LIPID, MG, [id number], HS TROP, CBC ####[place] [address] USAPotassium [Moles/Vol]3.6 mmol/LNormal3.5-5.1The [facility] Physician GroupComment on above:Order Comment: FASTING YPerformed By: #### ELDER, PTT, CMP, FE and TIBC, PT, A1C WTH eA, LIPID, MG, [id number], HS TROP, CBC ####[place] [id number] USAProtein [Mass/Vol]5.8 g/dLLow6.4-8.9The [facility] Physician GroupComment on above:Order Comment: FASTING YPerformed By: #### ELDER, PTT, CMP, FE and TIBC, PT, A1C WTH eA, LIPID, MG, [id number], HS TROP, CBC ## ##[place] [id number] USASodium [Moles/Vol]136 mmol/KAaegnq586-003Jns [facility] Physician GroupComment on above: Order Comment: FASTING YPerformed By: #### ELDER, PTT, CMP, FE and TIBC, PT, A1C WTH eA, LIPID, MG, [id number], HS TROP, CBC ####[place] [id number] USAUrea nitrogen [Mass/Vol]14 mg/dLNormal 7-25The [facility] Hospital Physician GroupComment on above:Order Comment: FASTING Y Performed By: #### ELDER, PTT, CMP, FE and TIBC, PT, A1C WTH eA, LIPID, MG, [id number], HS TROP, CBC ####[facility] [place] [address] USAFerritin [Mass/volume] in Serum or PlasmaOrdered By: Akash Mccartney on 22-97-9213Kqvbrhtj [Mass/Vol]371.5 ng/vTRnyj39.9-336.2 [facility]huja Medical CenterComment on above:Order Comment: FASTING Y Performed By: #### ELDER, PTT, CMP, FE and TIBC, PT, A1C WTH eA, LIPID, MG, [id number], HS TROP, CBC ####[place] [address] [place] [address] USAFolate [Mass/volume] in Serum or PlasmaOrdered By: Akash Mccartney on 20-25-4126Svwndp [Mass/Vol]9.1 ng/mL>5.9[facility]huja Medical CenterComment on above:Folate reference range: >5.9 ng/mlThe WHO technical consultation on folate and vitamin p32tzwujdwedzmm has determined that folate concentrations lessthan 4 ng/ml are considered deficient.Hemoglobin A1c/Hemoglobin.total in BloodOrdered By: Akash Mccartney on 61-09-7310IcU1w (Bld) [Mass fraction]5.5 %Normal4.3-5.6FCleveland Clinic FoundationComment on above:Increased risk for diabetes: 5.7 - 6.4diabetes: >6.4glycemic control for adults with diabetes: <7.0Result Comment: Increased risk for diabetes: 5.7 - 6.4 diabetes: >6.4 glycemic control for adults with diabetes: <7.0 Performed By: #### ELDER, PTT, CMP, FE and TIBC, PT, A1C WTH eA, LIPID, MG, [id number], HS TROP, CBC ####[place] [address] [place] [address] USAINR in Platelet poor plasma by Coagulation assay Ordered By: Akash Mccartney on 54-56-3049UCC Coag (PPP) [Relative time]2.5 {INR}NormalUniversity Hospitals Ahuja Medical CenterComment on above:INR Therapeutic Range A) Pre- and [...] TIBC, PT, A1C WTH eA, LIPID, MG, [id number], HS TROP, CBC ####[place] [address] [place] [address] USAIron [Mass/volume] in Serum or PlasmaOrdered By: Akash Mccartney on 27-85-4598Zrax [Mass/Vol]11 ug/cYMqf61-492NwzdejvguUniversity Hospitals Ahuja Medical CenterComment on above:Order Comment: FASTING YPerformed By: #### ELDER, PTT, CMP, FE and TIBC, PT, A1C WTH eA, LIPID, MG, [id number], HS TROP, CBC ####[place] [address] [place] [address] [place] Iron and TIBC Profileon 12-13-2024% Iron Saturation5.4 %Hfu05-91Qcb [facility] Physician GroupComment on above:Order Comment: FASTING YPerformed By: #### ELDER, PTT, CMP, FE and TIBC, PT, A1C WTH eA, LIPID, MG, [id number], HS TROP, CBC ## ##[facility] [place] [address] USATotal Iron Binding Ykvnmpmd207 ug/jBQwa563-906Bqx [facility] Physician GroupComment on above:Order Comment: FASTING YPerformed By: #### ELDER, PTT, CMP, FE and TIBC, PT, A1C WTH eA, LIPID, MG, [id number], HS TROP, CBC ####[place] [address] [place] [address] USALipid Panelon 24-03-0681BJL Cholesterol,Vpgpuzxsrm83 mg/dLNormal0-100The [facility] Hospital Physician GroupComment on above:Order Comment: FASTING YResult Comment: LDL ATP III CLASSIFICATION LDL less than 100 mg/dL Optimal LDL 100-129 mg/dL Near or above optimal LDL 130-159 mg/dL Borderline high LDL 160-189 mg/dL High LDL greater than 189 mg/dL Very highPerformed By: #### ELDER, PTT, CMP, FE and TIBC, PT, A1C WTH eA, LIPID, MG, [id number], HS TROP, CBC ####[place] [address] [place] [address] USATriglyceride w/Vpjwob76 mg/dLNormal0-149The [facility] Hospital Physician GroupComment on above:Order Comment: FASTING YResult Comment: TRIG ATP III CLASSIFICATION TRIG less than 150 mg/dL Normal TRIG 150- 199 mg/dL Borderline high TRIG 200-500 mg/dL High TRIG greater than 500 mg/dL Very high Standard traceable to the Center for Disease Conrtrol and Prevention (CDC) test method.Performed By: #### ELDER, PTT, CMP, FE and TIBC, PT, A1C WTH eA, LIPID, MG, [id number], HS TROP, CBC ####[address] [address] USAVLDL RFRMBXXPNWN81 mg/dLNormalThe [facility] Hospital Physician GroupComment on above:Order Comment: FASTING YPerformed By: #### ELDER, PTT, CMP, FE and TIBC, PT, A1C WTH eA, LIPID, MG, [id number], HS TROP, CBC ## ##[address] [address] USAMagnesium [Mass/volume] in Serum or PlasmaOrdered By: Akash Mccartney on 12-13-2024 Magnesium [Mass/Vol]1.8 mg/dLLow1.9-2.7FCleveland Clinic FoundationComment on above:Order Comment: FASTING YPerformed By: #### ELDER, PTT, CMP, FE and TIBC, PT, A1C WTH eA, LIPID, MG, [id number], HS TROP, CBC ####[facility] [place] [address] USAPartial Thromboplastin Timeon 82-49-6686yWHR Coag (Bld) [Time]38.9 sHigh25.1-36.5The [facility] Comment on above:Result Comment: A hematocrit value greater than 55% may lead to inaccurate results in coagulation testing. Patients having hematocrit values >55% require a special collection tube for coagulation studies. Please contact the laboratory at [phone] for redraw instructions.PERFORMED BY:[address] [place], [place] [phone] MEDICAL DIRECTORMARY SONI M.D.Performed By: #### ELDER, PTT, CMP, FE and TIBC, PT, A1C WTH eA, LIPID, MG, [id number], HS TROP, CBC ####[place] [address] [place] [address] USAProthrombin time (PT)Ordered By: Akash Mccartney on 53-63-0615HO Coag (PPP) [Time]27.3 sHigh9.0-12.9 [facility]huja Medical CenterComment on above:A hematocrit value greater than 55% may lead to inaccurate results in coagulation testing. Patientshaving hematocrit values >55% require a special collection tube for coagulation studies. Please contact the laboratory at [phone] for redraw instructions. Result Comment: A hematocrit value greater than 55% may lead to inaccurate results in coagulation testing. Patients having hematocrit values >55% require a special collection tube for coagulation studies. Please contact the laboratory at [phone] for redraw instructions.Performed By: #### ELDER, PTT, CMP, FE and TIBC, PT, A1C WTH eA, LIPID, MG, [id number], HS TROP, CBC ####[place] [address] [place] [address] USASerum or plasma iron binding capacity measurement (mass/volume)Ordered By: Akash Mccartney on 12-13-2024 Iron binding capacity [Mass/Vol]204 ug/rPPnm543-213JzemnysfmMartins Ferry Hospitalerum or plasma iron saturation measurement (mass fraction)Ordered By: Akash Mccartney on 66-11-6580Yojp saturation [Mass fraction]5.4 %Sxr59-20 Martins Ferry Hospitalerum or plasma total cholesterol/high density lipoprotein (HDL) cholesterol mass ratOrdered By: Akash Mccartney on 50-62-9218Ltvzcjmrmgd.total/Cholesterol in HDL [Mass ratio]2.1 {ratio}Normal<5.0 [facility]ja Medical CenterComment on above:Order Comment: FASTING YResult Comment: PERFORMED BY:[address] [place], [place] [phone] MEDICAL DIRECTORMARY SONI M.D.Performed By: #### ELDER, PTT, CMP, FE and TIBC, PT, A1C WTH eA, LIPID, MG, [id number], HS TROP, CBC ####[address] [address] USATransferrin [Mass/volume] in Serum or PlasmaOrdered By: Akash Mccartney on 40-32-3775Jampsejcmzz [Mass/Vol]146 mg/bGTjt286-052YtgbbpxbfUniversity Hospitals Ahuja Medical CenterComment on above:Order Comment: FASTING YPerformed By: #### ELDER, PTT, CMP, FE and TIBC, PT, A1C WTH eA, LIPID, MG, [id number], HS TROP, CBC ## ##[address] [address] [place] Triglyceride [Mass/volume] in Serum or PlasmaOrdered By: Akash Mccartney on 60-51-4930Uyhcecikalpn [Mass/Vol]57 mg/dL0-149[facility] Comment on above:TRIG ATP III CLASSIFICATIONTRIG less than 150 mg/dL NormalTRIG 150-199 mg/dL Borderline highTRIG 200-500 mg/dL High TRIG greater than 500 mg/dL Very highStandard traceable to the Center for Disease Conrtrol and Prevention (CDC) test method.Troponin I High Sensitivityon 16-53-4065Hlagohkh I High Chbmzdrucdf45Fgsvmp8-31Bwq [facility] Physician GroupComment on above:Result Comment: The Troponin units of report have been changed to meet the Chest Pain Accreditationrequirement, element EC5.M1l2. Troponin units are changed from pg/ml to ng/L. Also, the decimal is removed and results are in whole numbers.PERFORMED BY:[address] GOLDSTEINDaneAMEENAALSEA, [place] [phone] MEDICAL DIRECTORMARY SONI M.D.Performed By: #### ELDER, PTT, CMP, FE and TIBC, PT, A1C WTH eA, LIPID, MG, [id number], HS TROP, CBC ####[address] [address] USATroponin I.cardiac [Mass/volume] in Serum or Plasma by Detection limit <= 0.01 ng/mLOrdered By: Akash Mccartney on 40-77-1678Eucnltxe I.cardiac DL <= 0.01 ng/mL [Mass/Vol]10 ng/L0-[facility]huja Medical CenterComment on above:The Troponin units of report have been changed to meet the Chest Pain Accreditation requirement, element EC5.M1l2. Troponin units are changed from pg/ml to ng/L. Also, the decimal is removed and results are in whole numbers. Vit. B12/Folate Profileon 35-26-9192Wkcrpi9.1 ng/mLNormal>5.9The [facility] Hospital Physician GroupComment on above:Order Comment: FASTING YResult Comment: Folate reference range: >5.9 ng/ml The WHO technical consultation on folate and vitamin b12 deficiencies has determined that folate concentrations less than 4 ng/ml are considered deficient.PERFORMED BY:[address] [place], [place] [phone] MEDICAL DIRECTORMARY SONI M.D.Performed By: #### ELDER, PTT, CMP, FE and TIBC, PT, A1C WTH eA, LIPID, MG, [id number], HS TROP, CBC ####[facility] [place] [address] USAVitamin B12 ser/plasOrdered By: Akash Mccartney on 14-61-5019Ecxtcxaqy (Vitamin B12) [Mass/Vol]506 pg/rULdebdw993-393WfzknmufhUniversity Hospitals Ahuja Medical CenterComment on above:Order Comment: FASTING YPerformed By: #### ELDER, PTT, CMP, FE and TIBC, PT, A1C WTH eA, LIPID, MG, [id number], HS TROP, CBC ####[place] [address] [place] [id number] [facility] aPTT in Platelet poor plasma by Coagulation assayOrdered By: Akash Mccartney on 45-45-2798oFGV Coag (PPP) [Time]38.9 sHigh25.1-36.5FCleveland Clinic FoundationComment on above:A hematocrit value greater than 55% may lead to inaccurate results in coagulation testing. Patientshaving hematocrit values >55% require a special collection tube for coagulation studies. Please contact the laboratory at [phone] for redraw instructions.Alanine aminotransferase [Enzymatic activity/volume] in Serum or PlasmaOrdered By: Sree Thoa on 71-02-9453CJH [Catalytic activity/Vol]14 U/LNormal7-52[facility]ja Medical CenterComment on above:Performed By: #### HS TROP, PTT, PT, CBC, CMP ####[facility] [place] [address] USAAlbumin [Mass/volume] in Serum or Plasma by Bromocresol green (BCG) dye binding metho Ordered By: Sree Thao on 41-19-9275Xyemllg BCG dye [Mass/Vol]3.7 g/dL 3.5-5.7FCleveland Clinic FoundationAlkaline phosphatase [Enzymatic activity/volume] in Serum or PlasmaOrdered By: Sree Thao on 12-12-2024 ALP [Catalytic activity/Vol]98 U/VKpquur51-247PansddsfiUniversity Hospitals Ahuja Medical Center Comment on above:Performed By: #### HS TROP, PTT, PT, CBC, CMP ####[place] [address] [place] [address] USAAppearance of Urine Ordered By: Sree Thao on 47-60-9148Ooknjtdamq (U)ClearNormalClear [facility]ja Medical CenterComment on above:Order Comment: Name Collection Type:: Chou CatheterPerformed By: #### CUU, ADDONUAPLUS ####[place] [address] [place], [place] USAAspartate aminotransferase [Enzymatic activity/volume] in Serum or PlasmaOrdered By: Sree Thao on 00-80-9662LYO [Catalytic activity/Vol]49 U/EOvmd16-36CcqmxctdfUniversity Hospitals Ahuja Medical CenterComment on above:Performed By: #### HS TROP, PTT, PT, CBC, CMP ####[place] [address] [place] [address] USABNP ser/plasOrdered By: Sree Thao on 76-07-0797Kwqnxawrlrt peptide B (Bld) [Mass/Vol]114.0 pg/mLHigh5-100[facility]huja Medical CenterComment on above: Order Comment: ADDED ON TO PREVIOUS REQUISITION PER EDILMA IN [place] Comment: PERFORMED BY:[place] [address] [place], [place] [phone] MEDICAL MARY KATE SONI M.D.Performed By: #### BNP ####[address] [address] USABacteria [Presence] in Urine by AutomatedOrdered By: Sree Thao on 84-22-9790Eixfbtdk Auto Ql (U)Rare [HPF]None [facility] HospitalBasophils [#/volume] in Blood by Automated countOrdered By: Sree Thao on 26-44-4256Qlmtfswjp (Bld) [#/Vol]0.0 10*3/uLNormal0.0-0.2FCleveland Clinic FoundationComment on above:Result Comment: PERFORMED BY:[address] [place], [place] [phone] MEDICAL DIRECTORMARIO S NAE M.D.Performed By: #### HS TROP, PTT, PT, CBC, CMP ####[place] [address] [place] Basophils/100 leukocytes in Blood by Automated countOrdered By: Sree Thao on 79-52-1110Yindghdjg/100 WBC (Bld)0.6 %Normal.[facility]huja Medical CenterComment on above:Performed By: #### HS TROP, PTT, PT, CBC, CMP ####[place] [address] [facility] Bilirubin Test strip Ql (U)Ordered By: Sree Thao on 59-46-9967Pvjawwgmz Ql (U)NegativeNegativeUniversity Hospitals Ahuja Medical CenterBilirubin.total [Mass/volume] in Serum or PlasmaOrdered By: Sree Thao on 12-12-2024 Bilirubin [Mass/Vol]0.9 mg/dLNormal0.3-1.0[facility] Comment on above:Performed By: #### HS TROP, PTT, PT, CBC, CMP ####[place] [address] USACT cervical spine wo conon 42-71-1204XT cervical spine wo conNormalThe [facility] Group Calcium [Mass/volume] in Serum or PlasmaOrdered By: Sree Thao on 27-62-2588Ngjmcxo [Mass/Vol]9.1 mg/dLNormal8.6-10.3FCleveland Clinic FoundationComment on above:Performed By: #### HS TROP, PTT, PT, CBC, CMP ####[place] [address] USACarbon dioxide, total [Moles/volume] in Serum or PlasmaOrdered By: Sree Thao on 85-81-7153EY4 [Moles/Vol]26.4 mmol/ICtsjkj92.0-31.0[facility]ja Medical CenterComment on above:Performed By: #### HS TROP, PTT, PT, CBC, CMP ####[place] [address] [place] Chloride [Moles/volume] in Serum or PlasmaOrdered By: Sree Thao on 20-58-9660Ahytgxnb [Moles/Vol]102 mmol/VWbanxa88-581TddsviaaaUniversity Hospitals Ahuja Medical CenterComment on above:Performed By: #### HS TROP, PTT, PT, CBC, CMP ####[address] [address] USAColor of Urine by AutoOrdered By: Sree Master on 13-00-5093Oifbr (U)Colorless NormalYellowUniversity Hospitals Ahuja Medical CenterComment on above:Order Comment: Name Collection Type:: Chou CatheterPerformed By: #### CUU, ADDONUAPLUS ####[address] USAComplete Blood Count Auto Diffon 53-08-9819Xbsr Corpuscular HGB Conc32.5 g/dLNormal 32.5-35.6The [facility] Physician GroupComment on above:Performed By: #### HS TROP, PTT, PT, CBC, CMP ####[address] [address] USAMonocytes/100 WBC (Bld)18.74 %Normal0.00-20.00The [facility] Hospital Physician GroupComment on above:Performed By: #### HS TROP, PTT, PT, CBC, CMP ####[address] [address] USANRBC% 0.3 /100{WBC}Normal0-0.5The [facility] Physician [facility] HospitalComment on above:Performed By: #### HS TROP, PTT, PT, CBC, CMP ####[address] [address] USAWhite Blood Count5.0 [CFU]/mLNormal4.1-10.5The [facility] Physician [facility] HospitalComment on above:Performed By: #### HS TROP, PTT, PT, CBC, CMP ####[address] [address] USAComprehensive Metabolic Panelon 32-19-9889Owgpajk [Mass/Vol]3.7 g/dLNormal 3.5-5.7The [facility] Physician GroupComment on above:Performed By: #### HS TROP, PTT, PT, CBC, CMP ####[address] [place] [address] USACreatinine Clr Calc Krdjnrzf38.45NoCone Health Physician Group Comment on above:Result Comment: PERFORMED BY:[address] [place], [place] [phone] MEDICAL DIRECTORMARY SONI M.D.Performed By: #### HS TROP, PTT, PT, CBC, CMP ####[address] [address] [place] GFR/1.73 sq M.predicted MDRD (S/P/Bld) [Vol rate/Area]mL/min/{1.73_m2}NormalThe [facility]S Hospital Physician GroupComment on above:Performed By: #### HS TROP, PTT, PT, CBC, CMP ####[address] [address] USACreatinine [Mass/volume] in Serum or PlasmaOrdered By: Sree Thao on 57-76-7655Golaqwdzdl [Mass/Vol]1.09 mg/dLNormal0.70-1.30[facility]huja Medical CenterComment on above:Performed By: #### HS TROP, PTT, PT, CBC, CMP ####[address] [address] [place] Dipstick and Microscopicon 07-08-1111Xqpqjuyh,UrineRareNormalNone SeenThe [facility] Children'S Hospital Physician GroupComment on above:Order Comment: Name Collection Type:: Chou CatheterPerformed By: #### CUU, ADDONUAPLUS ####[address] USABilirubin,UrineNegativeNormalNegative The [facility] Physician GroupComment on above:Order Comment: Name Collection Type:: Chou CatheterPerformed By: #### CUU, ADDONUAPLUS ####[address] USAGlucose Ql (U)NormalNormal NormalThe [facility]'S Hospital Physician GroupComment on above:Order Comment: Name Collection Type:: Chou CatheterPerformed By: #### CUU, ADDONUAPLUS ####[address] USAHyaline Casts,Lssqh4-5Yvaiqo3-4Zlx [facility] Physician GroupComment on above:Order Comment: Name Collection Type:: Chou CatheterPerformed By: #### CUU, ADDONUAPLUS ####[address] USAMucus,UrineRareNormalThe [facility]'S Hospital Physician GroupComment on above:Order Comment: Name Collection Type:: Chou CatheterResult Comment: PERFORMED BY:[address]ETD[address] GOLDSTEINDaneAMEENA, [place] [phone] MEDICAL MARY KATE SONI M.D.Performed By: #### CUU, ADDONUAPLUS ####[address] USANitrite,UrineNegativeNormalNegativeThe [facility] Hospital Physician GroupComment on above:Order Comment: Name Collection Type:: Chou CatheterPerformed By: #### CUU, ADDONUAPLUS ####[address] [address] USAOccult Blood,Urine1+NormalNegativeThe [facility] Hospital Physician GroupComment on above:Order Comment: Name Collection Type:: Chou CatheterResult Comment: PERFORMED BY:[address] [place]STE[place]ane[place], [place] [phone] MEDICAL MARY KATE SONI M.D.Performed By: #### CUU, ADDONUAPLUS ####[address] USAProtein,UrineNegativeNormalNegativeThe [facility] Hospital Physician GroupComment on above:Order Comment: Name Collection Type:: Chou CatheterPerformed By: #### CUU, ADDONUAPLUS ####[address] USARBC,Nkjup4-0Evaqvb3-5Dps [facility] Physician GroupComment on above:Order Comment: Name Collection Type:: Chou CatheterPerformed By: #### CUU, ADDONUAPLUS ####[address] USASpecificy [place],Urine1.004Normal 1.001-1.030The [facility] Hospital Physician GroupComment on above:Order Comment: Name Collection Type:: Chou CatheterPerformed By: #### CUU, ADDONUAPLUS ####[address] [place] Urobilinogen,UrineNormalNormalNormMelbourne Regional Medical Center Physician GroupComment on above:Order Comment: Name Collection Type:: Chou CatheterPerformed By: #### CUU, ADDONUAPLUS ####[address] [address] USAWBC,Vyemv34-97Mcuzfh1-5Mpi [facility] Physician GroupComment on above: Order Comment: Name Collection Type:: Chou CatheterPerformed By: #### CUU, ADDONUAPLUS ####[address] USAECG 12 lead ECGon 43-32-6557AGV 12 lead ECGMinneapolis VA Health Care SystemEosinophils [#/volume] in Blood by Automated countOrdered By: Sree Thao on 00-83-1858Xhxhsktcajq (Bld) [#/Vol]0.2 10*3/uLNormal0.0-0.45[facility]ja Medical CenterComment on above:Performed By: #### HS TROP, PTT, PT, CBC, CMP ####[address] [address] USAEosinophils/100 leukocytes in Blood by Automated countOrdered By: Sree Thao on 35-19-9788Cagylrisedr/100 WBC (Bld)4.4 %Normal.[facility]huja Medical CenterComment on above:Performed By: #### HS TROP, PTT, PT, CBC, CMP ####[address] [address] [place] Epithelial cells.squamous [#/area] in Urine sediment by Automated countOrdered By: Sree Thao on 78-79-3771Wyvlznoiqn cells.squamous Auto (Urine sed) [#/Area]N/AFCleveland Clinic FoundationErythrocyte distribution width [Ratio] by Automated countOrdered By: Sree Thao on 52-87-7860Nanrfuvtjup distribution width (RBC) [Ratio]18.4 %High12.0-14.8[facility]huja Medical CenterComment on above:Performed By: #### HS TROP, PTT, PT, CBC, CMP ####[facility] [address] Erythrocytes [#/area] in Urine sediment by Automated countOrdered By: Sree Thao on 51-29-5270VFI Auto (Urine sed) [#/Area]1-2 [HPF]0-4FCleveland Clinic FoundationErythrocytes [#/volume] in Blood by Automated countOrdered By: Sree Thao on 80-32-3782CQK (Bld) [#/Vol]3.34 10*6/uLLow3.90-5.60 [facility]ja Medical CenterComment on above:Performed By: #### HS TROP, PTT, PT, CBC, CMP ####[facility] Mhu[address] StreetGlomerular filtration rate [Volume Rate/Area] in Serum, Plasma or Blood by CreatinineOrdered By: Sree Thao on 53-94-2133Akqmbjsxyl filtration rate [Volume Rate/Area] in Serum, Plasma or Blood by Creatinine> 60.0 mL/MinUniversity Hospitals Ahuja Medical CenterGlucose [Mass/volume] in Serum or Plasma Ordered By: Sree Thao on 17-20-6902Curfpzs [Mass/Vol]121 mg/cRYlwy02-579 [facility] Medical CenterComment on above:ADA recommended reference rangeRandom Glucose Reference [...] #### HS TROP, PTT, PT, CBC, CMP ####[address] [address] [place] [id number] USAGlucose [Mass/volume] in Urine by Test stripOrdered By: Sree Thao on 73-23-7008Ywseqrq Test strip (U) [Mass/Vol]Normal mg/dLNormal [facility]huja Medical CenterHematocrit [Volume Fraction] of Blood by Automated countOrdered By: Sree Thao on 31-45-7867Uvngwwcgip (Bld) [Volume fraction]29.7 %Low38.8-50.0[facility]huja Medical CenterComment on above:Performed By: #### HS TROP, PTT, PT, CBC, CMP ####[place] [address] USAHemoglobin Test strip Ql (U) Ordered By: Sree Thao on 60-77-9460Rfglhvorcb Ql (U)1+HighNegative [facility] Ahuja Medical CenterHemoglobin [Mass/volume] in BloodOrdered By: Sree Thao on 18-85-6278Zpylrxdihv (Bld) [Mass/Vol]9.6 g/dLLow13.0-17.0 [facility] Medical CenterComment on above:Performed By: #### HS TROP, PTT, PT, CBC, CMP ####[place] [address] USAHyaline casts [#/area] in Urine sediment by Automated countOrdered By: Sree Thao on 51-58-1298Luwepld casts Auto (Urine sed) [#/Area]0-8 [LPF]0-8[facility] Ahuja Medical CenterINR in Platelet poor plasma by Coagulation assayOrdered By: Sree Thao on 63-75-8438TOU Coag (PPP) [Relative time]2.6 {INR}NormalUniversity Hospitals Ahuja Medical CenterComment on above: INR Therapeutic Range A) Pre- [...] #### HS TROP, PTT, PT, CBC, CMP ####[facility] [address] [facility] [address] USAKetones [Presence] in Urine by Test stripOrdered By: Sree Thao on 03-29-7870Oosptwt Ql (U) NegativeNormalNegativeUniversity Hospitals Ahuja Medical CenterComment on above:Order Comment: Name Collection Type:: Chou CatheterPerformed By: #### CUU, ADDONUAPLUS ####[place] [address] [facility], [id number] USALeukocyte esterase [Presence] in Urine by Test stripOrdered By: Sree Thao on 20-11-2075Sheudwofm esterase Test strip Ql (U)2+NormalNegative [facility]als Ahuja Medical CenterComment on above:Order Comment: Name Collection Type:: Chou CatheterPerformed By: #### CUU, ADDONUAPLUS ####[place] [address] [facility], [id number] USALeukocytes [#/area] in Urine sediment by Automated countOrdered By: Sree Thao on 71-15-9547LYK Auto (Urine sed) [#/Area]10-19 [HPF]High0-4[facility] Leukocytes [#/volume] corrected for nucleated erythrocytes in Blood by Automated counOrdered By: Sree Thao on 93-00-9337XMU corrected for nucl RBC Auto (Bld) [#/Vol]5.0 10*3/uL4.1-10.5FCleveland Clinic FoundationLeukocytes [#/volume] in Blood by Automated countOrdered By: Sree Thao on 21-06-9546TLJ (Bld) [#/Vol]5.0 10*3/uLNormal4.1-10.5FCleveland Clinic FoundationComment on above:Performed By: #### HS TROP, PTT, PT, CBC, CMP ####[address] Lymphocytes [#/volume] in Blood by Automated countOrdered By: Sree Thao on 23-56-4163Vxmibdbgitb (Bld) [#/Vol]0.8 10*3/uLLow1.00-4.8[facility] Ahuja Medical CenterComment on above:Performed By: #### HS TROP, PTT, PT, CBC, CMP ####[address] Lymphocytes/100 leukocytes in Blood by Automated countOrdered By: Sree Thao on 24-58-6288Avemswdckni/100 WBC (Bld)15.9 %Normal.[facility] Ahuja Medical CenterComment on above:Performed By: #### HS TROP, PTT, PT, CBC, CMP ####[place] [id number] [facility] [Entitic mass] by Automated countOrdered By: Sree Thao on 38-34-2779BQO (RBC) [Entitic mass]28.8 jbImngnl82.5-35.2[facility] Comment on above:Performed By: #### HS TROP, PTT, PT, CBC, CMP ####[place] [id number] [facility] Auto (RBC) [Mass/Vol]Ordered By: Sree Thao on 85-65-1511RIWU (RBC) [Mass/Vol]32.5 g/dL32.5-35.6FTrinity Health System East CampusV [Entitic volume] by Automated countOrdered By: Sree Thao on 34-84-4916YNP (RBC) [Entitic vol]88.7 fL Ondvjx83.5-101[facility] Ahuja Medical CenterComment on above:Performed By: #### HS TROP, PTT, PT, CBC, CMP ####[place] [id number] USAMonocyte distribution width [Entitic volume] in Blood by AutomatedOrdered By: Sree Thao on 15-09-7435Yqdlawln distribution width Auto (Bld) [Entitic vol]18.74 %0.00-20.00[facility]ja Medical CenterMonocytes [#/volume] in Blood by Automated countOrdered By: Sree Thao on 12-42-1078Gxofajuhr (Bld) [#/Vol]0.4 10*3/uLNormal0.0-0.8 [facility]ja Medical CenterComment on above:Performed By: #### HS TROP, PTT, PT, CBC, CMP ####[place] [id number] USAMonocytes/100 leukocytes in Blood by Automated countOrdered By: Sree Thao on 38-76-4069Fguwmuvxs/100 WBC (Bld)7.5 %Normal.[facility] Ahuja Medical CenterComment on above:Performed By: #### HS TROP, PTT, PT, CBC, CMP ####[place] [address] USAMucus [Presence] in Urine by AutomatedOrdered By: Sree Thao on 63-74-5801Mbtsp Auto Ql (U)Rare [LPF][facility] Neutrophils [#/volume] in Blood by Automated countOrdered By: Sree Thao on 24-00-3160Qywgmgawfmj (Bld) [#/Vol]3.5 10*3/uLNormal1.8-7.7FC[facility] Clinic FoundationComment on above:Performed By: #### HS TROP, PTT, PT, CBC, CMP ####[address] [address] [place] Neutrophils/100 leukocytes in Blood by Automated countOrdered By: Sree Thao on 43-68-8102Igqyloabdhu/100 WBC (Bld)71.6 %Normal.[facility] Ahuja Medical CenterComment on above:Performed By: #### HS TROP, PTT, PT, CBC, CMP ####[address] [address] USANitrite Test strip Ql (U)Ordered By: Sree Thao on 03-39-5357Mwulsss Ql (U) NegativeNegativeUniversity Hospitals Ahuja Medical CenterNo Panel InformationOrdered By: Sree Thao on 89-01-3237Oyaewyub Creatinine Clearance (Chem51.45 [facility]huja Medical CenterNucleated erythrocytes [Presence] in Blood by Automated countOrdered By: Sree Thao on 76-02-3573Eflkbvgxk RBC Auto Ql (Bld)0.3 /100{WBC}0-0.5FCleveland Clinic FoundationPartial Thromboplastin Timeon 62-33-2881hEIB Coag (Bld) [Time]38.4 sHigh25.1-36.5The [facility] Physician GroupComment on above:Result Comment: A hematocrit value greater than 55% may lead to inaccurate results in coagulation testing. Patients having hematocrit values >55% require a special collection tube for coagulation s tudies. Please contact the laboratory at [phone] for redraw instructions.PERFORMED BY:[address] [place], [place] [phone] MEDICAL DIRECTORMARY SONI M.D.Performed By: #### HS TROP, PTT, PT, CBC, CMP ####[address] [address] USAPlatelet mean volume [Entitic volume] in Blood by Automated countOrdered By: Sree Thao on 16-23-1168Emlvdjcj mean volume (Bld) [Entitic vol]7.8 fLNormal6.6-10.1FCleveland Clinic FoundationComment on above:Performed By: #### HS TROP, PTT, PT, CBC, CMP ####[address] [address] [place] Platelets [#/volume] in Blood by Automated countOrdered By: Sree Thao on 07-04-2217Zfxkaugdc (Bld) [#/Vol]229 10*3/oCQsliyp346-387JevbapdeoUniversity Hospitals Ahuja Medical CenterComment on above:Performed By: #### HS TROP, PTT, PT, CBC, CMP ####[address] [address] [place] Potassium [Moles/volume] in Serum or PlasmaOrdered By: Sree Thao on 62-56-6531Xzbzotdwx [Moles/Vol]3.6 mmol/LNormal3.5-5.1FC[facility] Clinic FoundationComment on above:Hemolysis is present at a level that could interfere with the result.Contact lab if redraw is requiredResult Comment: Hemolysis is present at a level that could interfere with the result. Contact lab if redraw is requiredPerformed By: #### HS TROP, PTT, PT, CBC, CMP ####[place] [address] [place] [address] USAProtein Test strip (U) [Mass/Vol]Ordered By: Sree Thao on 07-49-2044Hwojhwa (U) [Mass/Vol] NegativeNegativeUniversity Hospitals Ahuja Medical CenterProtein [Mass/volume] in Serum or PlasmaOrdered By: Sree Thao on 51-59-0022Okjjaqc [Mass/Vol]6.9 g/dL Normal6.4-8.9[facility] Medical CenterCompine rest christian mental health services on above:Performed By: #### HS TROP, PTT, PT, CBC, CMP ####[address] [address] USAProthrombin time (PT)Ordered By: Sree Thao on 86-61-2185QO Coag (PPP) [Time]28.3 sHigh9.0-12.9[facility]ja Medical CenterComment on above:A hematocrit value greater than 55% may lead to inaccurate results in coagulation testing. Patientshaving hematocrit values >55% require a special collection tube for coagulation studies. Please contact the laboratory at [phone] for redraw instructions.Result Comment: A hematocrit value greater than 55% may lead to inaccurate results in coagulation testing. Patients having hematocrit values >55% require a special collection tube for coagulation studies. Please contact the laboratory at [phone] for redraw instructions.Performed By: #### HS TROP, PTT, PT, CBC, CMP ####[facility] [place] [address] USASerum globulin measurement by calculation (mass/volume)Ordered By: Sree Thao on 41-12-6311Vklfjdzy (S) [Mass/Vol]3.2 g/dLNormalUniversity Hospitals Ahuja Medical Center Comment on above:Performed By: #### HS TROP, PTT, PT, CBC, CMP ####[address] [address] USASerum or plasma albumin/globulin mass ratioOrdered By: Sree Thao on 12-12-2024 Albumin/Globulin [Mass ratio]1.2 {ratio}NormalUniversity Hospitals Ahuja Medical Center Comment on above:Performed By: #### HS TROP, PTT, PT, CBC, CMP ####[address] [address] USASerum or plasma anion gap determinationOrdered By: Sree Thao on 44-25-6126Ujrqc gap [Moles/Vol]11.2 mmol/LNormal6.0-15.0[facility] Medical CenterComment on above:Performed By: #### HS TROP, PTT, PT, CBC, CMP ####[address] [address] USASodium [Moles/volume] in Serum or PlasmaOrdered By: Sree Thao on 66-82-8182Wannsf [Moles/Vol]136 mmol/CFxsewy408-336UkhfuyvjbUniversity Hospitals Ahuja Medical CenterComment on above:Performed By: #### HS TROP, PTT, PT, CBC, CMP ####[address] [address] USASpecific gravity Test strip (U) [Rel density] Ordered By: Sree Thao on 75-23-4920Lgkjbthz gravity (U) [Rel density] 1.0041.001-1.030[facility]ja Medical CenterTroponin I High Sensitivityon 09-00-3403Mbrturkf I High Vyjulzncwpx50Kydsvo5-95Tqa [facility] Comment on above:Result Comment: The Troponin units of report have been changed to meet the Chest Pain Accreditationrequirement, element EC5.M1l2. Troponin units are changed from pg/ml to ng/L. Also, the decimal is removed and results are in whole numbers.PERFORMED BY:[address] [place], [place] [phone] MEDICAL DIRECTORMARY SONI M.D.Performed By: #### HS TROP, PTT, PT, CBC, CMP ####[facility] [place] [address] USATroponin I.cardiac [Mass/volume] in Serum or Plasma by Detection limit <= 0.01 ng/mLOrdered By: Sree Thao on 08-39-5704Hnoihbhs I.cardiac DL <= 0.01 ng/mL [Mass/Vol]10 ng/L0-20[facility] Medical CenterComment on above:The Troponin units of report have been changed to meet the Chest Pain Accreditation requirement, element EC5.M1l2. Troponin units are changed from pg/ml to ng/L. Also, the decimal is removed and results are in whole numbers.Urea nitrogen [Mass/volume] in Serum or Plasma Ordered By: Sree Thao on 20-13-6346Debk nitrogen [Mass/Vol]16 mg/dL Normal7-[facility]huja Medical CenterComment on above:Performed By: #### HS TROP, PTT, PT, CBC, CMP ####[facility] [place] [address] USAUrine Cultureon 21-98-1260Rrxsxuvo identified Cx Nom (U)NormalThe Levine Children'S Hospital Physician GroupComment on above:Performed By: #### CUU, ADDONUAPLUS ####[address] USAUrine cultureOrdered By: Sree Thao on 44-49-5436Llvbsnfz identified Cx Nom (U)Klebsiella pneumoniae (ESBL)AbnormalUniversity Hospitals Ahuja Medical Center Urobilinogen Test strip (U) [Mass/Vol]Ordered By: Sree Thao on 40-48-5329Eqhosmtaswtp (U) [Mass/Vol]Normal mg/dLNormalUniversity Hospitals Ahuja Medical CenterX-ray reportOrdered By: Shaquille Mahoney on 49-30-5343Nnire report [facility] Main [place] [address] [place] [address] XRay Report Signed Patient: Tavo Wallis Carson Murray MR# : [id number] : 1940 Acct:[id number] Age/Sex: 84 / M ADM Date: 5 Loc: ER Room: Type: [facility] ER Attending Dr: Copies to: Sree [...] Mahoney M.D. 12/12/2024 1:46 PM Dictation Location: [place] [address] Transcribed By: [facility] 12/12/24 1346 Dictated By: Shaquille Mahoney II, MD 12/12/24 1342 Signed By: 12/12/24 1346 [facility] Work Phone: Study reportUniversity Hospitals Ahuja Medical Center Work Phone: XR chest 2V*on 84-00-5271EN chest 2V*NormalThe [facility]ine Children'S Hospital Physician GroupaPTT in Platelet poor plasma by Coagulation assay Ordered By: Sree Thao on 85-18-8835oLUH Coag (PPP) [Time]38.4 sHigh 25.1-36.5FCleveland Clinic FoundationComment on above:A hematocrit value greater than 55% may lead to inaccurate results in coagulation testing. Patients having hematocrit values >55% require a special collection tube for coagulation studies. Please contact the laboratory at [phone] for redraw instructions. pH of Urine by Test stripOrdered By: Sree Thao on 58-87-9432eX (U)5.5 [pH]Normal5.0-9.0[facility]ja Medical CenterComment on above:Order Comment: Name Collection Type:: Chou CatheterPerformed By: #### CUU, ADDONUAPLUS ####[facility] [address] [place], [place] [facility]PITALMR lumbar spine wo/w conon 89-01-9208NX lumbar spine wo/w conNormalThe [facility] Hospital Physician GroupMagnetic resonance imaging reportOrdered By: Shaquille Mahoney on 82-84-2755Bmnkg reportWVUMEDICINE HARR[facility] [address] [place] [address] [place] [address] MRI Report Signed Patient: Tavo Wallis Jr MR# : [id number] : 1940 Acct:[id number] Age/Sex: 84 / M ADM Date: 5 Loc: MR Room: Type: [facility] Attending Dr: Keely Montoya APRN Copies to: [...] Mahoney M.D. 12/04/2024 1:30 PM Dictation Location: [place] [address] Transcribed By: NOLVIA 12/04/24 1330 Dictated By: Shaquille Mahoney II, MD 12/04/24 1323 Signed By: 12/04/24 1330 [facility] Work Phone: ct head/brain wo conon 64-26-0999TP head/brain wo con NormalThe [facility] Children[facility]S Hospital Physician GroupCT lumbar spine wo conon 12-88-4495NG lumbar spine wo conNormalThe [facility] Hospital Physician GroupX-ray reportOrdered By: Esa Cardoso on 24-91-4688Cwhjz reportWVUMEDICINE HARRISON [facility] Main [place] [address] [place], [place] [address] XRay Report Signed Patient: Tavo Wallis Jr MR# : [id number] : 1940 Acct:[id number] Age/Sex: 84 / M ADM Date: 5 Loc: CT Room: Type: [facility] Attending Dr: Jovany Stovall MD Copies to: [...] Cardoso M.D. 10/31/2024 5:40 PM Dictation Location: [facility]--[address] Transcribed By: [facility] 10/31/241739 Dictated By: Esa Cardoso DO 10/31/241734 Signed By: 10/31/241739 [facility] Medical CenterXR lumbar spine 6V w bendingon 21-87-1578HD lumbar spine 6V w bendingNoCone Health Physician GroupBasic Metabolic Panelon 50-11-9007Qmzkxvxfmm Clr Calc Xaqmavxb16.92NoCone Health Physician GroupComment on above:Performed By: #### GOMEZ DOMINGUEZ, MG ####[address] [address] USAGFR/1.73 sq M.predicted MDRD (S/P/Bld) [Vol rate/Area]55.532 mL/min/{1.73_m2}NormalThe Levine Children'S Hospital Physician GroupComment on above:Performed By: #### GOMEZ DOMINGUEZ, MG ####[address] [address] USACalcium [Mass/volume] in Serum or PlasmaOrdered By: Franck Gagnon on 36-99-1385Rrqbpnn [Mass/Vol]8.6 mg/dL Normal8.6-10.3FCleveland Clinic FoundationComment on above:Performed By: #### GOMEZ DOMINGUEZ, MG ####[address] [address] USACarbon dioxide, total [Moles/volume] in Serum or PlasmaOrdered By: Franck Gagnon on 17-10-7462GN6 [Moles/Vol]27.5 mmol/ASeataz40.0-31.0[facility]ja Medical CenterComment on above:Performed By: #### GOMEZ DOMINGUEZ, MG ####[address] [address] [place] Chloride [Moles/volume] in Serum or PlasmaOrdered By: Franck Gagnon on 10-08-2024 Chloride [Moles/Vol]98 mmol/NTrozbj88-805FfcipynwcUniversity Hospitals Ahuja Medical Center Comment on above:Performed By: #### GOMEZ DOMINGUEZ, MG ####[address] [address] USACreatinine [Mass/volume] in Serum or PlasmaOrdered By: Franck Gagnon on 18-82-7760Cmfwfmigja [Mass/Vol]1.28 mg/dLNormal0.70-1.30[facility]ja Medical CenterComment on above:Performed By: #### GOMEZ DOMINGUEZ, MG ####[address] [address] USAErythrocyte distribution width [Ratio] by Automated countOrdered By: Franck Gagnon on 14-92-1106Lxowizqggvt distribution width (RBC) [Ratio]17.7 %High12.0-14.8[facility]huja Medical CenterComment on above: Performed By: #### GOMEZ DOMINGUEZ MG ####[facility] [place] [address] USAErythrocytes [#/volume] in Blood by Automated count Ordered By: Franck Gagnon on 46-62-7447OVR (Bld) [#/Vol]2.63 10*6/uLLow3.90-5.60 [facility]ja Medical CenterComment on above:Performed By: #### GOMEZ DOMINGUEZ MG ####[place] [address] [place] [address] [place] Glucose [Mass/volume] in Serum or PlasmaOrdered By: Franck Gagnon on 10-08-2024 Glucose [Mass/Vol]95 mg/kEUmerzo22-984LbilbsjbxUniversity Hospitals Ahuja Medical CenterComment on above:ADA recommended reference rangeRandom Glucose Reference [...] reference rangePerformed By: #### GOMEZ DOMINGUEZ MG ####[place] [address] [place] [address] USAHematocrit [Volume Fraction] of Blood by Automated countOrdered By: Franck Gagnon on 83-94-1076Qnkxeorhoi (Bld) [Volume fraction]24.1 %Low38.8-50.0[facility]huja Medical CenterComment on above: Performed By: #### GOMEZ DOMINGUEZ MG ####[place] [address] [place] [address] USAHemoglobin [Mass/volume] in BloodOrdered By: Franck Gagnon on 22-61-6204Byvevlnxbp (Bld) [Mass/Vol]8.0 g/dLLow13.0-17.0[facility]ja Medical CenterComment on above:Performed By: #### GOMEZ DOMINGUEZ MG ####[place] [address] Hemogram CBC Without Diffon 64-94-9442Avja Corpuscular HGB Conc33.2 g/dLNormal 32.5-35.6The [facility] Hospital Physician GroupComment on above:Performed By: #### GOMEZ DOMINGUEZ, MG ####[place] [address] [address] StreetWhite Blood Count6.0 [CFU]/mLNormal4.1-10.5[facility] Comment on above:Performed By: #### GOMEZ DOMINGUEZ MG ####[address]Leukocytes [#/volume] corrected for nucleated erythrocytes in Blood by Automated counOrdered By: Franck Gagnon on 30-16-0406NZL corrected for nucl RBC Auto (Bld) [#/Vol]6.0 10*3/uL 4.1-10.5FRegency Hospital Company [Entitic mass] by Automated count Ordered By: Franck Gagnon on 90-79-2853GKI (RBC) [Entitic mass]30.4 pgNormal 27.5-35.2FCleveland Clinic FoundationComment on above:Performed By: #### GOMEZ DOMINGUEZ, MG ####[place] [address] [facility] CITYHC Auto (RBC) [Mass/Vol]Ordered By: Franck Gagnon on 85-71-8348VDRS (RBC) [Mass/Vol]33.2 g/dL32.5-35.6FTrinity Health System East CampusV [Entitic volume] by Automated countOrdered By: Franck Gagnon on 32-81-3839VUJ (RBC) [Entitic vol]91.5 gRAdevnm52.5-101[facility]ja Medical CenterComment on above:Performed By: #### ALBERTO CBCNO, MG ####[place] [address] [place] [address] USAMagnesium [Mass/volume] in Serum or Plasma Ordered By: Franck Gagnon on 89-28-4166Ihelatusx [Mass/Vol]2.1 mg/dLNormal1.9-2.7 [facility]ja Medical CenterComment on above:Result Comment: PERFORMED BY:[place] [address] [address] [place], [place] [phone] MEDICAL MARY KATE SONI M.D.Performed By: #### CORA DOMINGUEZNO, MG ####[place] [address] [place] [address] USANo Panel InformationOrdered By: Franck Gagnon on 76-53-8112Mifwezaoc GFR (CKD-EPI)55.532 mL/[facility]Ph[facility] Creatinine Clearance (Chem40.92[facility]55.532 mL/[facility]40.92[facility]huja Medical CenterPlatelet mean volume [Entitic volume] in Blood by Automated countOrdered By: Franck Gagnon on 18-48-9318Hktbqdmm mean volume (Bld) [Entitic vol]7.5 fLNormal6.6-10.1FCleveland Clinic FoundationComment on above:Result Comment: PERFORMED BY:[place] [address] [address] [place], [place] [phone] MEDICAL MARY KATE SONI M.D.Performed By: #### ALBERTO, CORANO, MG ####[address] [address] [place] Platelets [#/volume] in Blood by Automated countOrdered By: Franck Gagnon on 08-40-3465Dzxhksmjh (Bld) [#/Vol]173 10*3/mHXjmgeu633-877RdiigradsUniversity Hospitals Ahuja Medical CenterComment on above:Performed By: #### BMP, CBCNO, MG ####[place] [address] [place] [address] USAPotassium [Moles/volume] in Serum or PlasmaOrdered By: Franck Gagnon on 61-28-4411Sjxihhnig [Moles/Vol]4.1 mmol/LNormal3.5-5.1FCleveland Clinic FoundationComment on above:Performed By: #### GOMEZ DOMINGUEZ, MG ####[place] [address] [place] [address] USASerum or plasma anion gap determinationOrdered By: Franck Gagnon on 34-76-9232Bwjav gap [Moles/Vol]9.6 mmol/LNormal6.0-15.0 [facility]ja Medical CenterComment on above:Performed By: #### GOMEZ DOMINGUEZ, MG ####[address] [address] [place] Sodium [Moles/volume] in Serum or PlasmaOrdered By: Franck Gagnon on 10-08-2024 Sodium [Moles/Vol]131 mmol/HMim685-658IkdtjseddUniversity Hospitals Ahuja Medical CenterComment on above:Performed By: #### GOMEZ DOMINGUEZ, MG ####[address] [address] USAUrea nitrogen [Mass/volume] in Serum or PlasmaOrdered By: Franck Gagnon on 72-97-0721Lvme nitrogen [Mass/Vol]20 mg/dL Normal7-25[facility]huja Medical CenterComment on above:Performed By: #### GOMEZ DOMINGUEZ, MG ####[address] [address] USAAppearance of UrineOrdered By: Franck Gagnon on 29-13-8279Jspxvtvdod (U) CloudyCritically abnormalCleSt. John of God HospitalComment on above: Order Comment: Name Collection Type:: Chou CatheterPerformed By: #### CUU, ADDONUAPLUS ####[address] USABacteria [Presence] in Urine by AutomatedOrdered By: Franck Gagnon on 97-91-5842Ccnzxvdw Auto Ql (U)Rare [HPF]None SeenUniversity Hospitals Ahuja Medical CenterBilirubin Test strip Ql (U)Ordered By: Franck Gagnon on 71-48-6534Kveojhxqm Ql (U)NegativeNegativeUniversity Hospitals Ahuja Medical CenterCT head/brain wo conon 61-44-2593VI head/brain wo conNormalHca Florida Wood[facility] Hospital Physician GroupCT head/brain wo conNormalHca Florida [facility] Hospital Physician GroupColor of Urine by AutoOrdered By: Franck Gagnon on 87-46-7181Gtqtp (U)YellowNormalYellowUniversity Hospitals Ahuja Medical CenterComment on above:Order Comment: Name Collection Type:: Chou Catheter Performed By: #### CUU, ADDONUAPLUS ####[address] USADipstick and Microscopicon 45-29-1474Jxhlqrbn,Urine RareNormalNone SeenThe Levine Children'S Hospital Physician GroupComment on above:Order Comment: Name Collection Type:: Chou CatheterPerformed By: #### CUU, ADDONUAPLUS ####[address] [place] Bilirubin,UrineNegativeNormalNegativeHca Florida Wood[facility] Hospital Physician GroupComment on above:Order Comment: Name Collection Type:: Chou CatheterPerformed By: #### CUU, ADDONUAPLUS ####[address] [address] USAGlucose Ql (U)NormalNormalNormalThe [facility] Children'S Hospital Physician GroupComment on above:Order Comment: Name Collection Type:: Chou CatheterPerformed By: #### CUU, ADDONUAPLUS ####[address] [address] USAHyaline Casts,Nfzbe6-6Wogaiq1-8Ant [facility] Hospital Physician GroupComment on above:Order Comment: Name Collection Type:: Chou CatheterPerformed By: #### CUU, ADDONUAPLUS ####[address] [address] USAMucus,UrineRareNormalHca Florida Woodmont Hospital Physician GroupComment on above: Order Comment: Name Collection Type:: Chou CatheterResult Comment: PERFORMED BY:[place] [address] [address] [place], [place] [phone] MEDICAL DIRECTORMARY SONI M.D.Performed By: #### CUU, ADDONUAPLUS ####[address], [place] USANitrite,UrineNegativeNormalNegativeHca Florida Woodmont Hospital Physician GroupComment on above:Order Comment: Name Collection Type:: Chou CatheterPerformed By: #### CUU, ADDONUAPLUS ####[address] [address] USAOccult Blood,Urine3+NormalNegativeThe Levine Children'S Hospital Physician GroupComment on above:Order Comment: Name Collection Type:: Chou CatheterResult Comment: PERFORMED BY:[place] [address] [address] [place], [place] [phone] MEDICAL DIRECTORMARY SONI M.D.Performed By: #### CUU, ADDONUAPLUS ####[address] USARBC,UrineInnumerableNormal0-4The [facility] Hospital Physician GroupComment on above:Order Comment: Name Collection Type:: Chou Catheter Performed By: #### CUU, ADDONUAPLUS ####[address] USASpecificy [place],Urine1.610Joxdls3.001-1.030The [facility] Hospital Physician GroupComment on above:Order Comment: Name Collection Type:: Chou CatheterPerformed By: #### CUU, ADDONUAPLUS ####[address] [place] USAUrobilinogen,UrineNormalNormalNormal The [facility] Hospital Physician GroupComment on above:Order Comment: Name Collection Type:: Chou CatheterPerformed By: #### CUU, ADDONUAPLUS ####[address]etshel[address] GQ[address] USAWBC,UrineInnumerableNormal0-4 [facility] Physician GroupComment on above:Order Comment: Name Collection Type:: Chou CatheterPerformed By: #### CUU, ADDONUAPLUS ####[address] USAEpithelial cells.squamous [#/area] in Urine sediment by Automated countOrdered By: Franck Gagnon on 63-73-1950Epjklimkcw cells.squamous Auto (Urine sed) [#/Area]N/AFCleveland Clinic FoundationErythrocytes [#/area] in Urine sediment by Automated countOrdered By: Franck Gagnon on 92-48-6184OTX Auto (Urine sed) [#/Area] Innumerable [HPF]High0-4FCleveland Clinic FoundationGlucose [Mass/volume] in Urine by Test stripOrdered By: Franck Gagnon on 65-67-0879Ifzunze Test strip (U) [Mass/Vol]Normal mg/dLNormalUniversity Hospitals Ahuja Medical CenterHemoglobin Test strip Ql (U)Ordered By: Franck Gagnon on 78-04-6621Himtrbqxjf Ql (U)3+High NegativeUniversity Hospitals Ahuja Medical CenterHemogram CBC Without Diffon 10-07-2024 Erythrocyte distribution width (RBC) [Ratio]17.6 %High12.0-14.8The [facility] Physician GroupComment on above:Performed By: #### CBCNO ####[place] [address] USAHematocrit (Bld) [Volume fraction]27.2 %Low38.8-50.0[facility] Physician GroupComment on above: Performed By: #### CBCNO ####[place] [address] USAHemoglobin (Bld) [Mass/Vol]8.9 g/dLLow13.0-17.0The [facility] Physician GroupComment on above:Performed By: #### CBCNO ####[place] [address] USAMCH (RBC) [Entitic mass]30.2 ogYtkfvh62.5-35.2The [facility] Physician GroupComment on above: Performed By: #### CBCNO ####[place] [address] USAMCV (RBC) [Entitic vol]92.6 hCHnpwpe15.5-101[facility] Physician [facility] HospitalComment on above:Performed By: #### CBCNO ####[place] [address] USAMean Corpuscular HGB Conc32.6 g/kVBcppqj42.5-35.6[facility] Physician [facility] HospitalComment on above: Performed By: #### CBCNO ####[place] [address] USAPlatelet mean volume (Bld) [Entitic vol]7.8 fLNormal 6.6-10.1[facility] Physician [facility] HospitalComment on above:Result Comment: PERFORMED BY:[address] [place], [place] [phone] MEDICAL DIRECTORMARY SONI M.D.Performed By: #### CBCNO ####[place] [address] [place] Platelets (Bld) [#/Vol]177 10*3/aWNhhhiy679-566[facility] Physician [facility] Comment on above:Performed By: #### CBCNO ####[place] [address] USARBC (Bld) [#/Vol]2.94 10*6/uLLow3.90-5.60[facility] Physician [facility] HospitalComment on above:Performed By: #### CBCNO ####[place] [address] USAWhite Blood Count6.7 [CFU]/mLNormal4.1-10.5[facility] Physician [facility] HospitalComment on above:Performed By: #### CBCNO ####[place] [address] USAHyaline casts [#/area] in Urine sediment by Automated countOrdered By: Franck Gagnon on 41-83-4475Nqktkuh casts Auto (Urine sed) [#/Area]0-8 [LPF]0-8 [facility] Ahuja Medical CenterKetones [Presence] in Urine by Test strip Ordered By: Franck Gagnon on 37-68-7276Drwyrpq Ql (U)TraceNormalNegMercy Health Defiance HospitalComment on above:Order Comment: Name Collection Type:: Chou CatheterPerformed By: #### CUU, ADDONUAPLUS ####[address] [place], [place] USALeukocyte esterase [Presence] in Urine by Test stripOrdered By: Franck Gagnon on 96-20-2521Jqenkxtak esterase Test strip Ql (U)3+NormalNegMercy Health Defiance HospitalComment on above: Order Comment: Name Collection Type:: Chou CatheterPerformed By: #### CUU, ADDONUAPLUS ####[address] USALeukocytes [#/area] in Urine sediment by Automated countOrdered By: Franck Gagnon on 52-21-2124YBS Auto (Urine sed) [#/Area]Innumerable [HPF]High0-4 [facility]huja Medical CenterMucus [Presence] in Urine by AutomatedOrdered By: Franck Gagnon on 85-34-6784Ihjed Auto Ql (U)Rare [LPF][facility]huja Medical CenterNitrite Test strip Ql (U)Ordered By: Franck Gagnon on 10-07-2024 Nitrite Ql (U)NegativeNegMercy Health Defiance HospitalProtein [Mass/volume] in Urine by Test stripOrdered By: Franck Gagnon on 10-07-2024 Protein (U) [Mass/Vol]100 mg/dLNoCleveland Clinic Marymount Hospital Comment on above:Order Comment: Name Collection Type:: Chou CatheterPerformed By: #### CUU, ADDONUAPLUS ####[address] USASpecific gravity Test strip (U) [Rel density]Ordered By: Franck Gagnon on 21-06-9085Cyhpoikk gravity (U) [Rel density]1.0281.001-1.030 [facility] Ahuja Medical CenterUrine Cultureon 92-11-2852Gacikwie identified Cx Nom (U)No Growth 2 Days PERFORMED BY: [facility] [address] [place] [address] PATHOLOGIST UNDERBASTER MARY SONI M.D.[facility] Physician GroupComment on above: Performed By: #### CUU, ADDONUAPLUS ####[address] USAUrine cultureOrdered By: Franck Gagnon on 10-07-2024 Bacteria identified Cx Nom (U)No Growth 2 DaysUniversity Hospitals Ahuja Medical Center Urobilinogen Test strip (U) [Mass/Vol]Ordered By: Franck Gagnon on 10-07-2024 Urobilinogen (U) [Mass/Vol]Normal mg/dLNormalUniversity Hospitals Ahuja Medical CenterX- ray reportOrdered By: Shaquille Mahoney on 92-57-7470Mpnkc reportUniversity Hospitals Ahuja Medical Center Work Phone: XR chest 1V portableon 18-36-0188KO chest 1V portable NormalThe [facility] Physician [facility] HospitalpH of Urine by Test stripOrdered By: Franck Gagnon on 30-63-6355wR (U)5.5 [pH]Normal5.0-9.0[facility] Comment on above:Order Comment: Name Collection Type:: Chou CatheterPerformed By: #### CUU, ADDONUAPLUS ####[address] USABlood Cultureon 62-42-7283Tfisbado identified Cx Nom (Bld)NO GROWTH 5 DAYS PERFORMED BY: [facility] [address] [place] [address] PATHOLOGIST UNDERBASTER MARY SONI M.D.NormalHca Florida Woodmont Hospital Physician GroupComment on above: Performed By: #### CUBLD ####[address] [address] USABacteria identified Cx Nom (Bld)NO GROWTH 5 DAYS PERFORMED BY: [facility] [address] [place] [address] PATHOLOGIST UNDERBASTER MARY SONI M.D.[facility] Physician GroupComment on above: Performed By: #### CUBLD ####[address] [place] [address] USACT head/brain wo conon 52-37-1149YU head/brain wo conNormalThe [facility] Hospital Physician GroupCapillary blood glucose measurement by glucometer (mass/volume)Ordered By: Franck Gagnon on 65-68-6965Evjmcib [Mass/Vol] 102 mg/dLBrecksville VA / Crille HospitalComment on above:Random Glucose Reference Range is dependent on time and content of last meal. Glucose of more than 200 mg/dL in a nonstressed, ambulatory subject supports the diagnosis of Diabetes Mellitus.Result Comment: Random Glucose Reference Range is dependent on time and content of last meal. Glucose of more than 200 mg/dL in a nonstressed, ambulatory subject supports the diagnosis of Diabetes Mellitus.PERFORMED BY:[address] [place], [place] [phone] MEDICAL DIRECTORMARY SONI M.D.Performed By: #### GLULS ####Point of Care testing,Dipstick and MicroscopicOrdered By: Frankie Reynolds on 83-00-0423Cvgwukkrsu (U)clearNormalClearUniversity Hospitals Ahuja Medical CenterComment on above:Order Comment: Name Collection Type:: Chou Catheter Performed By: #### RAGHAVENDRA, CUU ####[facility] [facility] [place], [place] USAKetones Ql (U)NegativeNormalNegMercy Health Defiance HospitalComment on above:Order Comment: Name Collection Type:: Chou CatheterPerformed By: #### RAGHAVENDRA, CUU ####[place] [address] [place], [place] USALeukocyte esterase Test strip Ql (U)4+ NormalNegMercy Health Defiance HospitalComment on above:Order Comment: Name Collection Type:: Chou CatheterPerformed By: #### OCTAVIANOPLUS, CUU ####[place] [address] [place], [place] USApH (U) 5.5 [pH]Normal5.0-9.0[facility] Hospitals Ahuja Medical CenterComment on above:Order Comment: Name Collection Type:: Chou CatheterPerformed By: #### ADDONUAPLUS, CUU ####[address] [place] Dipstick and Microscopicon 27-30-3598Jgemqyue,Urine1+ [HPF]NormalNone SeenThe Levine Children'S Hospital Physician GroupComment on above:Order Comment: Name Collection Type:: Chou CatheterPerformed By: #### ADDONUAPLUS, CUU ####[address] USABilirubin,UrineNegativeNormalNegative [facility] Physician GroupComment on above:Order Comment: Name Collection Type:: Chou CatheterPerformed By: #### ADDONUAPLUS, CUU ####[address] USAColor (U)Light-YellowNormal YellowHca Florida Woodmont Hospital Physician GroupComment on above:Order Comment: Name Collection Type:: Chou CatheterPerformed By: #### ADDONUAPLUS, CUU ####[address] USAGlucose Ql (U)NormalNormalNormalThe [facility] Hospital Physician GroupComment on above:Order Comment: Name Collection Type:: Chou CatheterPerformed By: #### ADDONUAPLUS, CUU ####[address] [place] [place] Hyaline Casts,UrineNoneNormal0-8The [facility] Physician GroupComment on above: Order Comment: Name Collection Type:: Chou CatheterPerformed By: #### ADDONUAPLUS, CUU ####[address] [address] USAMucus,UrineRareNormalHca Florida [facility] Hospital Physician GroupComment on above: Order Comment: Name Collection Type:: Chou CatheterResult Comment: PERFORMED BY:[place] [place] [address] [place], [place] [phone] MEDICAL DIRECTORMARADILENE S NAE M.D.Performed By: #### ADDONUAPLUS, CUU ####[address] [address] USANitrite,UrinePositiveNormalNegativeThe [facility]S Hospital Physician GroupComment on above:Order Comment: Name Collection Type:: Chou CatheterPerformed By: #### ADDONUAPLUS, CUU ####[address] USAOccult Blood,Urine2+NormalNegativeThe [facility] Physician Group Comment on above:Order Comment: Name Collection Type:: Chou CatheterResult Comment: PERFORMED BY:[address] [place], [place] [phone] MEDICAL MARY KATE SONI M.D.Performed By: #### ADDONUAPLUS, CUU ####[address] USAProtein,UrineTraceNormalNegativeThe [facility]S Hospital Physician GroupComment on above:Order Comment: Name Collection Type:: Chou CatheterPerformed By: #### ADDONUAPLUS, CUU ####[address] USARBC,Hwxkd21-98Iozzhh6-1Zqd [facility] Physician GroupComment on above:Order Comment: Name Collection Type:: Chou CatheterPerformed By: #### ADDONUAPLUS, CUU ####[address] USASpecificy [place],Urine1.018Normal 1.001-1.030The [facility] Physician GroupComment on above:Order Comment: Name Collection Type:: Chou CatheterPerformed By: #### ADDONUAPLUS, CUU ####[address] [place] Urobilinogen,UrineNormalNormalNormalThe [facility] Hospital Physician GroupComment on above:Order Comment: Name Collection Type:: Chou CatheterPerformed By: #### ADDONUAPLUS, CUU ####[facility] [address] [place] [address] USAWBC,Gxdlu29-36Ohyiom0-0Bye [facility] Physician GroupComment on above: Order Comment: Name Collection Type:: Chou CatheterPerformed By: #### ADDTINO, CUU ####[facility] [address] [place] [address] USALaboratory - Chemistry and Chemistry - challengeOrdered By: Frankie Reynolds on 30-51-1510Nyxoglnzv Ql (U)NegativeUniversity Hospitals Ahuja Medical Center Specific gravity (U) [Rel density]1.018[facility] Laboratory - Microbiology and Antimicrobial susceptibilityOrdered By: Franck Gagnon on 48-02-1341Wmepisxa identified Cx Nom (Bld)NO GROWTH [address] [place], [place] [address]Bacteria identified Cx Nom (Bld)NO GROWTH [facility] CenterLaboratory - Specimen informationOrdered By: Frankie Reynolds on 82-19-6334Fjwgz (U)lightyellowUniversity Hospitals Ahuja Medical Center Laboratory - UrinalysisOrdered By: Frankie Reynolds on 94-48-9588Xlokdys Ql (U) PositiveUniversity Hospitals Ahuja Medical CenterProtein Ql (U)TraceUniversity Hospitals Ahuja Medical CenterMRSA - MSSA Nasal PCRon 58-44-7544RCAQ - MSSA Nasal PCRNormalThe [facility] Hospital Physician GroupComment on above:Performed By: #### MRSA - MSSA PCR ####[facility] [address] [place] [address] USANo Panel InformationOrdered By: Michele Knight on 23-48-2176Iwucw Screen MRSA/MSSA [facility] Medical CenterNo Panel InformationOrdered By: Franck Gagnon on 66-43-2229TD GROWTH 5 DAYSUniversity Hospitals Ahuja Medical CenterNO GROWTH DAYS [facility] Medical CenterNo Panel InformationOrdered By: Frankie Reynolds on 90-42-6505Dmjix Collection TypeSee commentUniversity Hospitals Ahuja Medical Center Comment on above:naUrine Glucose (UA)NormalUniversity Hospitals Ahuja Medical Center Urine Occult BloodSee commentUniversity Hospitals Ahuja Medical CenterComment on above: not doneUrine UrobilinogenNormalMartins Ferry Hospitalee comment [facility] CenterlightyellowUniversity Hospitals Ahuja Medical Center clearUniversity Hospitals Ahuja Medical CenterNormalUniversity Hospitals Ahuja Medical Center NegativeUniversity Hospitals Ahuja Medical Center1.018[facility] 5.5FCleveland Clinic FoundationTraceUniversity Hospitals Ahuja Medical Center PositiveUniversity Hospitals Ahuja Medical Center4+[facility] Urine Cultureon 35-07-2452Sethjewf identified Cx Nom (U)NormalThe [facility]S Hospital Physician GroupComment on above:Performed By: #### RAGHAVENDRA, CUU ####[facility] [address] [place], [place] USAUrine cultureOrdered By: Franck Gagnon on 53-27-2495Xzeanyzr identified Cx Nom (U) Enterococcus faecalisAbKettering Health DaytonAlanine aminotransferase [Enzymatic activity/volume] in Serum or PlasmaOrdered By: Terence Steele on 33-28-0034YWL [Catalytic activity/Vol]6 U/LLow7-52[facility]huja Medical CenterComment on above:Performed By: #### CBC, CMP, PTT, PT ####[facility] [address] [place] [address] USAAlbumin [Mass/volume] in Serum or Plasma by Bromocresol green (BCG) dye binding metho Ordered By: Terence Steele on 95-97-7219Qotvrgr BCG dye [Mass/Vol]3.5 g/dL3.5-5.7 [facility]huja Medical CenterAlkaline phosphatase [Enzymatic activity/volume] in Serum or PlasmaOrdered By: Terence Steele on 64-94-2816SBT [Catalytic activity/Vol]157 U/IEawm72-048MhzxcobouUniversity Hospitals Ahuja Medical Center Comment on above:Performed By: #### CBC, CMP, PTT, PT ####[facility] [address] [place] [address] USAAspartate aminotransferase [Enzymatic activity/volume] in Serum or PlasmaOrdered By: Terence Steele on 02-72-3634WAM [Catalytic activity/Vol]16 U/KFdlpof11-40HlfrokwrnUniversity Hospitals Ahuja Medical CenterComment on above:Performed By: #### CBC, CMP, PTT, PT ####[facility] [address] [place] [address] [place] Basophils [#/volume] in Blood by Automated countOrdered By: Terence Steele on 58-71-7991Teiryiibe (Bld) [#/Vol]0.0 10*3/uLNormal0.0-0.2FCleveland Clinic FoundationComment on above:Result Comment: PERFORMED BY:[address] [place], [place] [phone] MEDICAL DIRECTORMARY SONI M.D.Performed By: #### CBC, CMP, PTT, PT ####[address] [address] USABasophils/100 leukocytes in Blood by Automated countOrdered By: Terence Steele on 10-05-2024 Basophils/100 WBC (Bld)0.4 %Normal.[facility]huja Medical CenterComment on above:Performed By: #### CBC, CMP, PTT, PT ####[address] [address] USABilirubin.total [Mass/volume] in Serum or PlasmaOrdered By: Terence Steele on 66-59-4713Zaglcxvxy [Mass/Vol]0.6 mg/dL Normal0.3-1.0[facility]huja Medical CenterComment on above:Performed By: #### CBC, CMP, PTT, PT ####[address] [address] USACT cervical spine wo [facility] 97-04-1158CH cervical spine wo conNAsheville Specialty Hospital Physician GroupCT facial bones wo [facility] hospitalon 64-91-0769KT facial bones wo conNAsheville Specialty Hospital Physician GroupCT head/brain wo [facility] 31-65-4347II head/brain wo conNAsheville Specialty Hospital Physician Group Calcium [Mass/volume] in Serum or PlasmaOrdered By: Terence Steele on 10-05-2024 Calcium [Mass/Vol]9.4 mg/dLNormal8.6-10.3FC[facility] Clinic Foundation Comment on above:Performed By: #### CBC, CMP, PTT, PT ####[address] [address] USACarbon dioxide, total [Moles/volume] in Serum or PlasmaOrdered By: Terence Steele on 09-99-4981AL2 [Moles/Vol]25.9 mmol/XCirzfb23.0-31.0[facility]ja Medical CenterComment on above:Performed By: #### CBC, CMP, PTT, PT ####[address] [address] USAChloride [Moles/volume] in Serum or PlasmaOrdered By: Terenec Steele on 47-52-7852Aqzzwldp [Moles/Vol]102 mmol/LNormal 98-107[facility]ja Medical CenterComment on above:Performed By: #### CBC, CMP, PTT, PT ####[address] [address] USAComplete Blood Count Auto Diffon 25-90-0717Jewv Corpuscular HGB Conc 33.1 g/cASnfpao97.5-35.6The [facility] Physician GroupComment on above:Performed By: #### CBC, CMP, PTT, PT ####[address] [address] USAMonocytes/100 WBC (Bld)19.41 %Normal0.00-20.00The [facility] Physician GroupComment on above:Performed By: #### CBC, CMP, PTT, PT ####[address] [address] USANRBC% 0.2 /100{WBC}Normal0-0.5The [facility] Physician GroupComment on above:Performed By: #### CBC, CMP, PTT, PT ####[address] [address] USAWhite Blood Count5.7 [CFU]/mLNormal4.1-10.5The [facility] Physician GroupComment on above:Performed By: #### CBC, CMP, PTT, PT ####[address] [address] [place] Comprehensive Metabolic Panelon 60-69-7383Sehnigl [Mass/Vol]3.5 g/dLNormal 3.5-5.7The [facility] Physician GroupComment on above:Performed By: #### CBC, CMP, PTT, PT ####[address] [place] [address] USACreatinine Clr Calc Nfslkumm46.79NoCone Health Physician Group Comment on above:Result Comment: PERFORMED BY:[address] [place], [place] [phone] MEDICAL DIRECTORMARY SONI M.D.Performed By: #### CBC, CMP, PTT, PT ####[address] [address] USAGFR/1.73 sq M.predicted MDRD (S/P/Bld) [Vol rate/Area]mL/min/{1.73_m2}NormalThe [facility] Physician [facility] HospitalComment on above:Performed By: #### CBC, CMP, PTT, PT ####[place] [address] [place] Creatinine [Mass/volume] in Serum or PlasmaOrdered By: Terence Steele on 17-54-0171Uzsmyhjkhv [Mass/Vol]1.11 mg/dLNormal0.70-1.30[facility]ja Medical CenterComment on above:Performed By: #### CBC, CMP, PTT, PT ####[address] [address] USAECG 12 lead ECGon 90-71-2138TYS 12 lead ECGJackson North Medical Center Physician [facility] Eosinophils [#/volume] in Blood by Automated countOrdered By: Terence Steele on 11-02-0534Petwxpfmwpo (Bld) [#/Vol]0.3 10*3/uLNormal0.0-0.45[facility]ja Medical CenterComment on above:Performed By: #### CBC, CMP, PTT, PT ####[place] [address] [place] Eosinophils/100 leukocytes in Blood by Automated countOrdered By: Terence Steele on 72-48-6501Afrobjlaizv/100 WBC (Bld)4.7 %Normal.[facility]huja Medical CenterComment on above:Performed By: #### CBC, CMP, PTT, PT ####[address] [address] USAErythrocyte distribution width [Ratio] by Automated countOrdered By: Terence Steele on 94-36-8857Awpjruucmtm distribution width (RBC) [Ratio]17.5 %High12.0-14.8 [facility]huja Medical CenterComment on above:Performed By: #### CBC, CMP, PTT, PT ####[address] [address] USAErythrocytes [#/volume] in Blood by Automated countOrdered By: Terence Steele on 11-98-4401QZN (Bld) [#/Vol]3.08 10*6/uLLow3.90-5.60[facility]ja Medical CenterComment on above:Performed By: #### CBC, CMP, PTT, PT ####[address] [address] USAGlucose [Mass/volume] in Serum or PlasmaOrdered By: Terence Steele on 01-03-1875Rveljmh [Mass/Vol]105 mg/oPZqbe76-020QgsdtagwvUniversity Hospitals Ahuja Medical CenterComment on above:Result Comment: Random Glucose Reference Range is dependent on time and content of last meal. Glucose of more than 200 mg/dL in a nonstressed, ambulatory subject supports the diagnosis of Diabetes Mellitus. ADA recommended reference rangePerformed By: #### CBC, CMP, PTT, PT ####[address] [address] USAHematocrit [Volume Fraction] of Blood by Automated countOrdered By: Terence Steele on 69-10-8286Wvxpfyhcfe (Bld) [Volume fraction] 28.3 %Low38.8-50.0[facility]huja Medical CenterComment on above:Performed By: #### CBC, CMP, PTT, PT ####[address] [address] USAHemoglobin [Mass/volume] in BloodOrdered By: Terence Steele on 37-87-7015Rdsiuptgmh (Bld) [Mass/Vol]9.3 g/dLLow13.0-17.0[facility]ja Medical CenterComment on above:Performed By: #### CBC, CMP, PTT, PT ####[address] [place] [address] USAINR in Platelet poor plasma by Coagulation assayOrdered By: Terence Steele on 10-05-2024 INR Coag (PPP) [Relative time]2.4 {INR}NormalUniversity Hospitals Ahuja Medical Center Comment on above:INR Therapeutic Range A) Pre- [...] 4.5Performed By: #### CBC, CMP, PTT, PT ####[address] [place] [address] [place] Leukocytes [#/volume] corrected for nucleated erythrocytes in Blood by Automated counOrdered By: Terence Steele on 09-51-6213LCR corrected for nucl RBC Auto (Bld) [#/Vol]5.7 10*3/uL4.1-10.5FCleveland Clinic FoundationLeukocytes [#/volume] in Blood by Automated countOrdered By: Terence Steele on 12-74-7490GYG (Bld) [#/Vol]5.7 10*3/uLNormal4.1-10.5FCleveland Clinic FoundationComment on above:Performed By: #### CBC, CMP, PTT, PT ####[address] [place] [address] USALymphocytes [#/volume] in Blood by Automated countOrdered By: Terence Steele on 23-54-3121Fphbpaetqiw (Bld) [#/Vol] 1.1 10*3/uLNormal1.00-4.8[facility]ja Medical CenterComment on above: Performed By: #### CBC, CMP, PTT, PT ####[facility] [address] [place] [address] USALymphocytes/100 leukocytes in Blood by Automated countOrdered By: Terence Steele on 04-09-9162Rnuiepdxqjq/100 WBC (Bld) 19.8 %Normal.[facility]huja Medical CenterComment on above:Performed By: #### CBC, CMP, PTT, PT ####[address] [address] [facility] CITYH [Entitic mass] by Automated countOrdered By: Terence Steele on 79-75-7875FGH (RBC) [Entitic mass]30.3 maUuozry65.5-35.2 [facility]ja Medical CenterComment on above:Performed By: #### CBC, CMP, PTT, PT ####[address] [address] [facility] MID[facility] CITYHC Auto (RBC) [Mass/Vol]Ordered By: Terence Steele on 62-31-4252GKRX (RBC) [Mass/Vol]33.1 g/dL32.5-35.6FCleveland Clinic FoundationMCV [Entitic volume] by Automated countOrdered By: Terence Steele on 73-73-7833VGP (RBC) [Entitic vol]91.7 yPXmjqzo38.5-101[facility]ja Medical CenterComment on above:Performed By: #### CBC, CMP, PTT, PT ####[facility] [address] [place] [address] USAMonocyte distribution width [Entitic volume] in Blood by AutomatedOrdered By: Terence Steele on 40-00-8963Zosunbor distribution width Auto (Bld) [Entitic vol]19.41 %0.00-20.00[facility]ja Medical CenterMonocytes [#/volume] in Blood by Automated countOrdered By: Terence Steele on 96-55-1430Gqrpbnzvq (Bld) [#/Vol]0.6 10*3/uLNormal0.0-0.8[facility] Medical CenterComment on above:Performed By: #### CBC, CMP, PTT, PT ####[facility] [place] [address] [place] Monocytes/100 leukocytes in Blood by Automated countOrdered By: Terence Steele on 40-85-5724Twuerzgul/100 WBC (Bld)9.9 %Normal.[facility] Comment on above:Performed By: #### CBC, CMP, PTT, PT ####[address] [place] [address] USANeutrophils [#/volume] in Blood by Automated countOrdered By: Terence Steele on 94-23-1026Dgczehewukt (Bld) [#/Vol]3.7 10*3/uLNormal1.8-7.7FCleveland Clinic FoundationComment on above:Performed By: #### CBC, CMP, PTT, PT ####[address] [place] [address] USANeutrophils/100 leukocytes in Blood by Automated countOrdered By: Terence Steele on 63-78-1535Qtnrndytaay/100 WBC (Bld) 65.2 %Normal.[facility] Ahuja Medical CenterComment on above:Performed By: #### CBC, CMP, PTT, PT ####[address] [address] USANo Panel InformationOrdered By: Terence Steele on 10-05-2024> 60.0 mL/MinUniversity Hospitals Ahuja Medical Center44.79[facility]huja Medical CenterNucleated erythrocytes [Presence] in Blood by Automated count Ordered By: Ternece Steele on 58-04-9446Vnmofjfvj RBC Auto Ql (Bld)0.2 /100{WBC} 0-0.5FCleveland Clinic FoundationPartial Thromboplastin Timeon 10-05-2024 aPTT Coag (Bld) [Time]41.0 sHigh25.1-36.5The [facility] Hospital Physician GroupComment on above:Result Comment: A hematocrit value greater than 55% may lead to inaccurate results in coagulation testing. Patients having hematocrit values >55% require a special collection tube for coagulation studies. Please contact the laboratory at [phone] for redraw instructions.PERFORMED BY:[address] [place], [place] [phone] MEDICAL DIRECTORMARY SONI M.D.Performed By: #### CBC, CMP, PTT, PT ####[address] [address] [facility] Platelet mean volume [Entitic volume] in Blood by Automated countOrdered By: Terence Steele on 60-15-8337Bgjjfflk mean volume (Bld) [Entitic vol]7.7 fLNormal 6.6-10.1FCleveland Clinic FoundationComment on above:Performed By: #### CBC, CMP, PTT, PT ####[address] [address] USAPlatelets [#/volume] in Blood by Automated countOrdered By: Terence Steele on 94-12-2305Jxzexlgvw (Bld) [#/Vol]217 10*3/qXUrtcaa582-748KefbxlgqqUniversity Hospitals Ahuja Medical CenterComment on above:Performed By: #### CBC, CMP, PTT, PT ####[id number] [facility] Potassium [Moles/volume] in Serum or PlasmaOrdered By: Terence Steele on 76-86-0670Zbuvjddyc [Moles/Vol]4.2 mmol/LNormal3.5-5.1FCleveland Clinic FoundationComment on above:Performed By: #### CBC, CMP, PTT, PT ####[address] [address] USAProtein [Mass/volume] in Serum or PlasmaOrdered By: Terence Steele on 20-92-3901Lzqbvlj [Mass/Vol]6.7 g/dLNormal6.4-8.9[facility] Ahuja Medical CenterComment on above:Performed By: #### CBC, CMP, PTT, PT ####[address] [address] USAProthrombin time (PT)Ordered By: Terence Steele on 99-17-9181ZE Coag (PPP) [Time]26.6 sHigh9.0-12.9[facility] Ahuja Medical CenterComment on above:A hematocrit value greater than 55% may lead to inaccurate results in coagulation testing. Patientshaving hematocrit values >55% require a special collection tube for coagulation studies. Please contact the laboratory at [phone] for redraw instructions.Result Comment: A hematocrit value greater than 55% may lead to inaccurate results in coagulation testing. Patients having hematocrit values >55% require a special collection tube for coagulation studies. Please contact the laboratory at [phone] for redraw instructions.Performed By: #### CBC, CMP, PTT, PT ####[address] [place] [address] USASerum globulin measurement by calculation (mass/volume)Ordered By: Treence Steele on 86-68-2383Ehvayrti (S) [Mass/Vol]3.2 g/dLNormalUniversity Hospitals Ahuja Medical CenterComment on above: Performed By: #### CBC, CMP, PTT, PT ####[id number] USASerum or plasma albumin/globulin mass ratio Ordered By: Terence Steele on 39-62-5254Iykyeir/Globulin [Mass ratio]1.1 {ratio} NormalUniversity Hospitals Ahuja Medical CenterCompine rest christian mental health services on above:Performed By: #### CBC, CMP, PTT, PT ####[id number] USASerum or plasma anion gap determinationOrdered By: Terence Steele on 19-79-8618Yxnsr gap [Moles/Vol]13.3 mmol/LNormal6.0-15.0[facility]huja Medical CenterComment on above:Performed By: #### CBC, CMP, PTT, PT ####[address] [address] USASodium [Moles/volume] in Serum or PlasmaOrdered By: Terence Steele on 73-38-4744Tfhtiy [Moles/Vol]137 mmol/IZrlgwv563-354AdjoyfgqwUniversity Hospitals Ahuja Medical CenterComment on above:Performed By: #### CBC, CMP, PTT, PT ####[address] [address] USAUrea nitrogen [Mass/volume] in Serum or PlasmaOrdered By: Terence Steele on 52-36-3040Jhmb nitrogen [Mass/Vol]18 mg/dL Normal7-25University [facility] Ahuja Medical CenterComment on above:Performed By: #### CBC, CMP, PTT, PT ####[address] [address] USAaPTT in Platelet poor plasma by Coagulation assayOrdered By: Terence Steele on 51-12-3991tDTP Coag (PPP) [Time]41.0 sHigh25.1-36.5FCleveland Clinic FoundationComment on above:A hematocrit value greater than 55% may lead to inaccurate results in coagulation testing. Patientshaving hematocrit values >55% require a special collection tube for coagulation studies. Please contact the laboratory at [phone] for redraw instructions.Basic Metabolic Panelon 25-71-9539HAT/1.73 sq M.predicted MDRD (S/P/Bld) [Vol rate/Area]mL/min/{1.73_m2} NormalThe Levine Children'S Hospital Physician GroupComment on above:Performed By: #### CBC, BMP ####[address] [address] [place] Basophils [#/volume] in Blood by Automated countOrdered By: Bhupinder Mcintyre on 33-78-5209Ghjocaimg (Bld) [#/Vol]0.0 10*3/uLNormal0.0-0.2FCleveland Clinic FoundationComment on above:Result Comment: PERFORMED BY:[address] [place], [place] [phone] MEDICAL MARY KATE SONI M.D.Performed By: #### CBC, BMP ####[address] [address] USABasophils/100 leukocytes in Blood by Automated countOrdered By: Bhupinder Mcintyre on 60-61-8130Ywfofthjj/100 WBC (Bld)1.0 %Normal.[facility] Ahuja Medical CenterComment on above:Performed By: #### CBC, BMP ####[address] [address] USACalcium [Mass/volume] in Serum or PlasmaOrdered By: Bhupinder Mcintyre on 03-03-7221Cgvrkew [Mass/Vol]8.7 mg/dLNormal8.6-10.3FCleveland Clinic FoundationComment on above:Result Comment: PERFORMED BY:[address] [place], [place] [phone] MEDICAL DIRECTORMARY SONI M.D.Performed By: #### CBC, BMP ####[address] [address] USACarbon dioxide, total [Moles/volume] in Serum or PlasmaOrdered By: Bhupinder Mcintyre on 97-76-5413MR5 [Moles/Vol]29.5 mmol/DUoswqp83.0-31.0[facility]ja Medical CenterComment on above:Performed By: #### CBC, BMP ####[address] [address] USAChloride [Moles/volume] in Serum or PlasmaOrdered By: Bhupinder Mcintyre on 87-71-3639Fkirelgh [Moles/Vol]103 mmol/SKrsgji64-479CktxwfqggUniversity Hospitals Ahuja Medical CenterComment on above:Performed By: #### CBC, BMP ####[address] [address] [facility] Complete Blood Count Auto Diffon 36-95-6848Pikq Corpuscular HGB Conc32.5 g/dL Uikhue72.5-35.6The [facility] Hospital Physician GroupComment on above:Performed By: #### CBC, BMP ####[address] [address] USANRBC%0.2 /100{WBC}Normal0-0.5The [facility] Hospital Physician GroupComment on above: Performed By: #### CBC, BMP ####[address] [place] [address] USAWhite Blood Count4.5 [CFU]/mLNormal4.1-10.5The [facility] Hospital Physician GroupComment on above:Performed By: #### CBC, BMP ####[address] [place] Creatinine [Mass/volume] in Serum or PlasmaOrdered By: Bhupinder Mcintyre on 09-24-2024 Creatinine [Mass/Vol]1.08 mg/dLNormal0.70-1.30[facility] Comment on above:Performed By: #### CBC, BMP ####[address] USAEosinophils [#/volume] in Blood by Automated countOrdered By: Bhupinder Mcintyre on 33-59-1012Rmrvyhqxojl (Bld) [#/Vol]0.3 10*3/uLNormal0.0-0.45[facility]ja Medical CenterComment on above:Performed By: #### CBC, BMP ####[address] USAEosinophils/100 leukocytes in Blood by Automated countOrdered By: Bhupinder Mcintyre on 82-68-3147Vdrthmfpnnp/100 WBC (Bld)7.2 %Normal.[facility]huja Medical CenterComment on above:Performed By: #### CBC, BMP ####[address] USAErythrocyte distribution width [Ratio] by Automated countOrdered By: Bhupinder Mcintyre on 09-24-2024 Erythrocyte distribution width (RBC) [Ratio]17.4 %High12.0-14.8[facility]ja Medical CenterComment on above:Performed By: #### CBC, BMP ####[address] [place] Erythrocytes [#/volume] in Blood by Automated countOrdered By: Bhupinder Mcintyre on 75-39-4923ZHU (Bld) [#/Vol]2.99 10*6/uLLow3.90-5.60[facility] Medical CenterComment on above:Performed By: #### CBC, BMP ####[address] [address] USAGlucose [Mass/volume] in Serum or PlasmaOrdered By: Bhupinder Mcintyre on 73-03-5735Wtpitol [Mass/Vol]80 mg/dLNormal 70-100[facility]ja Medical CenterComment on above:ADA recommended reference rangeRandom Glucose Reference [...] recommended reference rangePerformed By: #### CBC, BMP ####[address] [address] USAHematocrit [Volume Fraction] of Blood by Automated countOrdered By: Bhupinder Mcintyre on 41-44-5630Fdoexosnwx (Bld) [Volume fraction]27.6 %Low38.8-50.0 [facility]ja Medical CenterComment on above:Performed By: #### CBC, BMP ####[address] [address] [place] Hemoglobin [Mass/volume] in BloodOrdered By: Bhupinder Mcintyre on 49-93-4290Ujahovjber (Bld) [Mass/Vol]9.0 g/dLLow13.0-17.0[facility]ja Medical CenterComment on above:Performed By: #### CBC, BMP ####[address] [address] USALeukocytes [#/volume] corrected for nucleated erythrocytes in Blood by Automated counOrdered By: Bhupinder Mcintyre on 37-11-9990[place] corrected for nucl RBC Auto (Bld) [#/Vol]4.5 10*3/uL4.1-10.5FCleveland Clinic FoundationLeukocytes [#/volume] in Blood by Automated countOrdered By: Bhupinder Mcintyre on 25-30-6613EXR (Bld) [#/Vol]4.5 10*3/uLNormal4.1-10.5FCleveland Clinic FoundationComment on above:Performed By: #### CBC, BMP ####[address] [address] [place] Lymphocytes [#/volume] in Blood by Automated countOrdered By: Bhupinder Mcintyre on 15-49-8373Knfansjtpnb (Bld) [#/Vol]1.3 10*3/uLNormal1.00-4.8[facility]ja Medical CenterComment on above:Performed By: #### CBC, BMP ####[address] [address] USALymphocytes/100 leukocytes in Blood by Automated countOrdered By: Bhupinder Mcintyre on 09-24-2024 Lymphocytes/100 WBC (Bld)29.5 %Normal.[facility]huja Medical CenterComment on above:Performed By: #### CBC, BMP ####[address] [address] [facility] [Entitic mass] by Automated countOrdered By: Bhupinder Mcintyre on 55-76-0988YRP (RBC) [Entitic mass]30.0 eiZnwkpm49.5-35.2 [facility]ja Medical CenterComment on above:Performed By: #### CBC, BMP ####[address] [address] [facility] Auto (RBC) [Mass/Vol]Ordered By: Bhupinder Mcintyre on 57-09-7843AAWY (RBC) [Mass/Vol] 32.5 g/dL32.5-35.6FTrinity Health System East CampusV [Entitic volume] by Automated countOrdered By: Bhupinder Mcintyre on 84-02-7781MHE (RBC) [Entitic vol]92.3 fL Xymcst84.5-101[facility]ja Medical CenterComment on above:Performed By: #### CBC, BMP ####[address] [address] USAMonocytes [#/volume] in Blood by Automated countOrdered By: Bhupinder Mcintyre on 42-64-5896Obkyqiklw (Bld) [#/Vol]0.4 10*3/uLNormal0.0-0.8[facility] Medical CenterComment on above:Performed By: #### CBC, BMP ####[address] [place] [address] USAMonocytes/100 leukocytes in Blood by Automated countOrdered By: Bhupinder Mcintyre on 09-24-2024 Monocytes/100 WBC (Bld)8.7 %Normal.[facility]ja Medical CenterComment on above:Performed By: #### CBC, BMP ####[address] USANeutrophils [#/volume] in Blood by Automated count Ordered By: Bhupinder Mcintyre on 92-19-6626Wmusmkojkny (Bld) [#/Vol]2.4 10*3/uLNormal 1.8-7.7FCleveland Clinic FoundationComment on above:Performed By: #### CBC, BMP ####[address] [place] Neutrophils/100 leukocytes in Blood by Automated countOrdered By: Bhupinder Mcintyre on 92-60-3119Wmlnugmiemv/100 WBC (Bld)53.6 %Normal.[facility]ja Medical CenterComment on above:Performed By: #### CBC, BMP ####[id number] USANo Panel InformationOrdered By: Bhupinder Mcintyre on 82-92-2904Crlgyzpej GFR (CKD-EPI)> 60.0 mL/MinUniversity Hospitals Ahuja Medical CenterPharmacy Creatinine Clearance (ChemN/[facility]> 60.0 mL/MinUniversity Hospitals Ahuja Medical CenterN/[facility] SouthwoodsNucleated erythrocytes [Presence] in Blood by Automated countOrdered By: Bhupinder Mcintyre on 05-97-2780Pcynfjxwk RBC Auto Ql (Bld)0.2 /100{WBC} 0-0.5FCleveland Clinic FoundationPlatelet mean volume [Entitic volume] in Blood by Automated countOrdered By: Bhupinder Mcintyre on 11-12-9715Mrfqsgyu mean volume (Bld) [Entitic vol]8.2 fLNormal6.6-10.1FCleveland Clinic FoundationComment on above:Performed By: #### CBC, BMP ####[address] [address] USAPlatelets [#/volume] in Blood by Automated countOrdered By: Bhupinder Mcintyre on 74-91-9856Ymqvsaohn (Bld) [#/Vol]188 10*3/uLNormal 150-450[facility]ja Medical CenterComment on above:Performed By: #### CBC, BMP ####[address] [address] [place] Potassium [Moles/volume] in Serum or PlasmaOrdered By: Bhupinder Mcintyre on 09-24-2024 Potassium [Moles/Vol]4.3 mmol/LNormal3.5-5.1[facility] Comment on above:Performed By: #### CBC, BMP ####[address] [address] USASerum or plasma anion gap determinationOrdered By: Bhupinder Mcintyre on 23-58-1937Zozkw gap [Moles/Vol]9.8 mmol/L Normal6.0-15.0[facility]huja Medical CenterComment on above:Performed By: #### CBC, BMP ####[address] [address] USASodium [Moles/volume] in Serum or PlasmaOrdered By: Bhupinder Mcintyre on 20-65-8608Pvfzts [Moles/Vol]138 mmol/GTryyei308-051LfiivluzgUniversity Hospitals Ahuja Medical CenterComment on above:Performed By: #### CBC, BMP ####[address] [address] USAUrea nitrogen [Mass/volume] in Serum or PlasmaOrdered By: Bhupinder Mcintyre on 99-12-4682Fidd nitrogen [Mass/Vol]19 mg/dLNormal7-25[facility]huja Medical CenterComment on above:Performed By: #### CBC, BMP ####[address] [address] USAUrine Cultureon 38-25-6485Sphetjof identified Cx Nom (U)NormalThe Levine Children'S Hospital Physician GroupComment on above:Performed By: #### CUU ####[address] [address] USAUrine cultureOrdered By: Opal Ga on 67-49-5376Haoynslx identified Cx Nom (U)Achromobacter xylosoxidansDelaware County HospitalUrine Cultureon 08-27-2024 Bacteria identified Cx Nom (U)NormalThe Levine Children'S Hospital Physician GroupComment on above:Performed By: #### CUU ####[address] [address] USAUrine cultureOrdered By: Opal Ga on 08-27-2024 Bacteria identified Cx Nom (U)Citrobacter freundii complexAbKettering Health DaytonBacteria identified Cx Nom (U)Pseudomonas aeruginosa AbnormalUniversity Hospitals Ahuja Medical CenterCreatinineon 04-79-5897YJD/1.73 sq M.predicted MDRD (S/P/Bld) [Vol rate/Area]mL/min/{1.73_m2}NormalThe Levine Children'S Hospital Physician GroupComment on above:Result Comment: PERFORMED BY:[address] [place], [place] [phone] MEDICAL DIRECTORJAJA CATES M.D.Performed By: #### DESTINY ANTONIOAT ####[address] [address] USACreatinine [Mass/volume] in Serum or PlasmaOrdered By: Sandip Aguirre on 07-23-2024 Creatinine [Mass/Vol]1.06 mg/dLNormal0.70-1.30[facility] Comment on above:Performed By: #### DESTINY ANTONIOAT ####[address] [address] USAErythrocyte Sedimentation Rateon 26-71-1885JXE (Bld) [Velocity]63 mm/hHigh0-19[facility] Comment on above:Result Comment: PERFORMED BY:[address] [place], [place] [phone] MEDICAL DIRECTORJAJA VILLAGOMEZCINDY MariePerformed By: #### ESR ####[address] [address] USAErythrocyte sedimentation rate by Photometric methodOrdered By: Sandip Aguirre on 79-42-4301MGS Photometric method (Bld) [Velocity]63 mm/hrHigh0[facility]ja Medical CenterNo Panel InformationOrdered By: Sandip Aguirre on 20-92-1554Cjathiwgo GFR (CKD-EPI)> 60.0 mL/MinUniversity Hospitals Ahuja Medical CenterPharmacy Creatinine Clearance (ChemN/[facility]> 60.0 mL/MinUniversity Hospitals Ahuja Medical CenterN/[facility]woodsVancomycin [Mass/volume] in Serum or Plasma --troughOrdered By: Sandip Aguirre on 04-05-8972Uofhxllubc trough [Mass/Vol]18.2 ug/mL10.0-20.0[facility]ja Medical CenterComment on above:Last dose: -Vancomycin,Troughon 07-23-2024 Vancomycin,Dkeruc99.2 ug/hAElrdun22.0-20.0The [facility] Hospital Physician GroupComment on above:Result Comment: Last dose: -PERFORMED BY:[address] [place], [place] [phone] MEDICAL DIRECTORJAJA VILLAGOMEZCINDY MariePerformed By: #### TALHA ANTONIO ####[address] [address] USABasophils Auto (Bld) [#/Vol]Ordered By: Mario Jordan on 66-59-4170Lhssnkeym (Bld) [#/Vol]Automated basophil count0.0-0.2FCleveland Clinic FoundationBasophils [#/volume] in Blood by Automated countOrdered By: Mario Jordan on 30-06-1591Azrfkkyal (Bld) [#/Vol]0.1 10*3/uLNormal0.0-0.2FCleveland Clinic FoundationComment on above:Result Comment: PERFORMED BY:[address] [place], [place] [phone] MEDICAL DIRECTORJAJA WHITE M.D.Performed By: #### CBC ####[address] [address] USABasophils/100 WBC Auto (Bld)Ordered By: Mario Jordan on 17-60-8478Fctksjzsz/100 WBC (Bld)Automated basophil %.[facility] Ahuja Medical CenterBasophils/100 leukocytes in Blood by Automated count Ordered By: Mario Jordan on 03-50-9963Wnuioquid/100 WBC (Bld)0.9 %Normal. [facility]huja Medical CenterComment on above:Performed By: #### CBC ####[address] [facility] Complete Blood Count Auto Diffon 73-33-8276Poab Corpuscular HGB Conc32.8 g/dL Ybzlyo17.5-35.6The [facility] Hospital Physician GroupComment on above:Performed By: #### CBC ####[address] [address] [place] NRBC%0.0 /100{WBC}Normal0-0.5The [facility] Hospital Physician GroupComment on above: Performed By: #### CBC ####[address] USAEosinophils Auto (Bld) [#/Vol]Ordered By: Mario Jordan on 59-27-3267Ayiboursqqq (Bld) [#/Vol]Automated eosinophil count0.0-0.45 [facility]huja Medical CenterEosinophils [#/volume] in Blood by Automated countOrdered By: Mario Jordan on 56-22-4760Elxyyftpiar (Bld) [#/Vol]0.3 10*3/uL Normal0.0-0.45[facility]huja Medical CenterComment on above:Performed By: #### CBC ####[id number] USAEosinophils/100 WBC Auto (Bld)Ordered By: Mario Jordan on 07-17-2024 Eosinophils/100 WBC (Bld)Automated eosinophil %.[facility] Ahuja Medical CenterEosinophils/100 leukocytes in Blood by Automated countOrdered By: Mario Jordan on 50-88-3493Mfgezwyeswm/100 WBC (Bld)4.8 %Normal.[facility]huja Medical CenterComment on above:Performed By: #### CBC ####[place] [address] USAErythrocyte distribution width Auto (RBC) [Ratio]Ordered By: Mario Jordan on 46-53-2071Ykdcfjshszz distribution width (RBC) [Ratio]Erythrocyte distribution width [Ratio] by Automated count High12.0-14.8[facility] Hospitals Ahuja Medical CenterErythrocyte distribution width [Ratio] by Automated countOrdered By: Mario Jordan on 43-35-8316Fgacixlhwps distribution width (RBC) [Ratio]18.5 %High12.0-14.8[facility]ja Medical CenterComment on above:Performed By: #### CBC ####[address] USAErythrocytes [#/volume] in Blood by Automated countOrdered By: Mario Jordan on 48-70-8439JAY (Bld) [#/Vol]2.88 10*6/uLLow3.90-5.60[facility]ja Medical CenterComment on above:Performed By: #### CBC ####[place] [address] USAHematocrit Auto (Bld) [Volume fraction]Ordered By: Mario Jrodan on 92-88-6317Wxzlfdlupt (Bld) [Volume fraction]Hematocrit [Volume Fraction] of Blood by Automated dtzjiNri30.8-50.0[facility] Ahuja Medical CenterHematocrit [Volume Fraction] of Blood by Automated countOrdered By: Mario Jordan on 65-89-0492Xddfgydjmo (Bld) [Volume fraction]25.8 %Low38.8-50.0[facility]huja Medical CenterComment on above:Performed By: #### CBC ####[address] [place] [address] USAHemoglobin [Mass/volume] in BloodOrdered By: Mario Jordan on 80-37-7749Wdsalmlljz (Bld) [Mass/Vol]Hemoglobin [Mass/volume] in TlxxgJfk87.0-17.0[facility] Hospitals Ahuja Medical CenterHemoglobin (Bld) [Mass/Vol]8.5 g/dLLow13.0-17.0[facility]ja Medical CenterComment on above:Performed By: #### CBC ####[address] USALeukocytes [#/volume] corrected for nucleated erythrocytes in Blood by Automated counOrdered By: Mario Jordan on 38-87-7579TRC corrected for nucl RBC Auto (Bld) [#/Vol]Leukocytes [#/volume] corrected for nucleated erythrocytes in Blood by Automated coun4.1-10.5FCleveland Clinic FoundationWBC corrected for nucl RBC Auto (Bld) [#/Vol]7.1 10*3/uL4.1-10.5 [facility]ja Medical CenterLeukocytes [#/volume] in Blood by Automated countOrdered By: Mario Jordan on 08-87-7779BXW (Bld) [#/Vol]7.1 10*3/uLNormal 4.1-10.5FCleveland Clinic FoundationComment on above:Performed By: #### CBC ####[id number] [place] Lymphocytes Auto (Bld) [#/Vol]Ordered By: Mario Jordan on 01-70-5508Xruooitxcol (Bld) [#/Vol]Lymphocytes [#/volume] in Blood by Automated count1.00-4.8[facility]huja Medical CenterLymphocytes [#/volume] in Blood by Automated count Ordered By: Mario Jordan on 24-14-7194Bgspmbsjkfq (Bld) [#/Vol]1.5 10*3/uLNormal 1.00-4.8[facility]ja Medical CenterComment on above:Performed By: #### CBC ####[address] [address] [facility] Lymphocytes/100 WBC Auto (Bld)Ordered By: Mario Jordan on 07-17-2024 Lymphocytes/100 WBC (Bld)Lymphocytes/100 leukocytes in Blood by Automated count. [facility] Ahuja Medical CenterLymphocytes/100 leukocytes in Blood by Automated countOrdered By: Mario Jordan on 72-36-0179Jdcrqzdaupw/100 WBC (Bld) 20.4 %Normal.[facility]huja Medical CenterComment on above:Performed By: #### CBC ####[id number] [facility] Auto (RBC) [Entitic mass]Ordered By: Mario Jordan on 36-98-3657KOY (RBC) [Entitic mass]MCH [Entitic mass] by Automated count27.5-35.2FRegency Hospital Company [Entitic mass] by Automated countOrdered By: Mario Jordan on 27-89-3607NUM (RBC) [Entitic mass]29.4 ggCavbqj59.5-35.2FCleveland Clinic FoundationComment on above:Performed By: #### CBC ####[address] [place] [id number] [facility] Auto (RBC) [Mass/Vol] Ordered By: Mario Jordan on 00-63-5674SIFK (RBC) [Mass/Vol]MCHC [Mass/volume] by Automated count32.5-35.6FTrinity Health System East CampusHC (RBC) [Mass/Vol] 32.8 g/dL32.5-35.6FPremier Health Upper Valley Medical Center Auto (RBC) [Entitic vol] Ordered By: Mario Jordan on 10-05-5813QUO (RBC) [Entitic vol]MCV [Entitic volume] by Automated count83.5-101[facility] [Entitic volume] by Automated countOrdered By: Mario Jordan on 64-62-2709JUB (RBC) [Entitic vol] 89.8 eIBycepn41.5-101[facility]ja Medical CenterComment on above:Performed By: #### CBC ####[id number] USAMonocytes Auto (Bld) [#/Vol]Ordered By: Mario Jordan on 07-17-2024 Monocytes (Bld) [#/Vol]Automated blood monocyte count0.0-0.8[facility]ja Medical CenterMonocytes [#/volume] in Blood by Automated countOrdered By: Mario Jordan on 33-66-0696Whzxtgclc (Bld) [#/Vol]0.6 10*3/uLNormal0.0-0.8[facility]ja Medical CenterComment on above:Performed By: #### CBC ####[place] [address] USAMonocytes/100 WBC Auto (Bld)Ordered By: Mario Jordan on 42-98-1639Foobncfhs/100 WBC (Bld)Automated monocyte %.[facility]ja Medical CenterMonocytes/100 leukocytes in Blood by Automated countOrdered By: Mario Jordan on 26-29-1304Xjtjvpaqu/100 WBC (Bld)8.0 %Normal.[facility]huja Medical CenterComment on above:Performed By: #### CBC ####[address] Neutrophils Auto (Bld) [#/Vol]Ordered By: Mario Jordan on 30-82-4497Svmhqqxxsfe (Bld) [#/Vol]Neutrophils [#/volume] in Blood by Automated count1.8-7.7FCleveland Clinic FoundationNeutrophils [#/volume] in Blood by Automated countOrdered By: Mario Jordan on 77-40-2168Ahrbpeixvze (Bld) [#/Vol]4.7 10*3/uLNormal1.8-7.7 [facility]huja Medical CenterComment on above:Performed By: #### CBC ####[address] Neutrophils/100 WBC Auto (Bld)Ordered By: Mario Jordan on 07-17-2024 Neutrophils/100 WBC (Bld)Automated neutrophil %.[facility] Medical CenterNeutrophils/100 leukocytes in Blood by Automated countOrdered By: Mario Jordan on 43-49-7975Cmjqnijdvtr/100 WBC (Bld)65.9 %Normal.[facility]ja Medical CenterComment on above:Performed By: #### CBC ####[address] [address] [place] [id number] USANucleated erythrocytes [Presence] in Blood by Automated countOrdered By: Mario Jordan on 07-17-2024 Nucleated RBC Auto Ql (Bld)Nucleated erythrocytes [Presence] in Blood by Automated count0-0.5FCleveland Clinic FoundationNucleated RBC Auto Ql (Bld) 0.0 /100{WBC}0-0.5FCleveland Clinic FoundationPlatelet mean volume Auto (Bld) [Entitic vol]Ordered By: Mario Jordan on 89-70-8785Hhumhosq mean volume (Bld) [Entitic vol]Platelet mean volume [Entitic volume] in Blood by Automated count6.6-10.1FCleveland Clinic FoundationPlatelet mean volume [Entitic volume] in Blood by Automated countOrdered By: Mario Jordan on 88-49-2000Fyilzzrs mean volume (Bld) [Entitic vol]8.2 fLNormal6.6-10.1FCleveland Clinic FoundationComment on above:Performed By: #### CBC ####[place] [id number] USAPlatelets Auto (Bld) [#/Vol]Ordered By: Mario Jordan on 34-28-1628Jbjisvcme (Bld) [#/Vol]Platelets [#/volume] in Blood by Automated uctxb489-368VpuiufizoUniversity Hospitals Ahuja Medical CenterPlatelets [#/volume] in Blood by Automated countOrdered By: Mario Jordan on 07-17-2024 Platelets (Bld) [#/Vol]164 10*3/uTUfvysk809-791Izipevruu[address] [place] [address] Comment on above:Performed By: #### CBC ####[place] [id number] USARBC Auto (Bld) [#/Vol]Ordered By: Mario Jordan on 18-53-3394JCX (Bld) [#/Vol]Erythrocytes [#/volume] in Blood by Automated countLow3.90-5.60[facility]huja Medical CenterWBC Auto (Bld) [#/Vol]Ordered By: Mario Jordan on 45-36-2337GFB (Bld) [#/Vol]Leukocytes [#/volume] in Blood by Automated count4.1-10.5FCleveland Clinic FoundationAlanine aminotransferase [Enzymatic activity/volume] in Serum or PlasmaOrdered By: Mario Jordan on 52-53-1163GES [Catalytic activity/Vol]Alanine aminotransferase [Enzymatic activity/volume] in Serum or Plasma7-52[facility] Medical CenterALT [Catalytic activity/Vol]14 U/LNormal7-52[facility] CenterComment on above:Performed By: #### CBC, CMP ####[facility] [address] [place] [address] USAAlbumin [Mass/volume] in Serum or Plasma by Bromocresol green (BCG) dye binding methoOrdered By: Mario Jordan on 07-16-2024 Albumin BCG dye [Mass/Vol]Albumin [Mass/volume] in Serum or Plasma by Bromocresol green (BCG) dye binding methoLow3.5-5.7FCleveland Clinic FoundationAlbumin BCG dye [Mass/Vol]2.8 g/dLLow3.5-5.7FCleveland Clinic FoundationAlkaline phosphatase [Enzymatic activity/volume] in Serum or PlasmaOrdered By: Mario Jordan on 31-58-3511RBE [Catalytic activity/Vol]Alkaline phosphatase [Enzymatic activity/volume] in Serum or Gexpje43-728AjtvcfffbUniversity Hospitals Ahuja Medical CenterALP [Catalytic activity/Vol]100 U/MEgqwex19-860CirvxtyqtUniversity Hospitals Ahuja Medical CenterComment on above:Performed By: #### CBC, CMP ####[facility] [address] [place] [address] USAAspartate aminotransferase [Enzymatic activity/volume] in Serum or PlasmaOrdered By: Mario Jordan on 81-62-6008ODL [Catalytic activity/Vol]Aspartate aminotransferase [Enzymatic activity/volume] in Serum or Mpshhw43-71IawjzobirUniversity Hospitals Ahuja Medical CenterAST [Catalytic activity/Vol]22 U/LFssuku95-69SnkqtxuivUniversity Hospitals Ahuja Medical Center Comment on above:Performed By: #### CBC, CMP ####[facility] [address] [place] [address] USABilirubin.total [Mass/volume] in Serum or PlasmaOrdered By: Mario Jordan on 11-71-2191Pfzpyvrdj [Mass/Vol] Bilirubin.total [Mass/volume] in Serum or Plasma0.3-1.0[facility]huja Medical CenterBilirubin [Mass/Vol]0.4 mg/dLNormal0.3-1.0[facility] Medical CenterComment on above:Performed By: #### CBC, CMP ####[facility] [address] [place] [address] USACalcium [Mass/volume] in Serum or PlasmaOrdered By: Mario Jordan on 14-53-7747Yxsvqry [Mass/Vol] Calcium [Mass/volume] in Serum or PlasmaLow8.6-10.3FCleveland Clinic FoundationCalcium [Mass/Vol]8.2 mg/dLLow8.6-10.3FC[facility] Comment on above:Performed By: #### CBC, CMP ####[facility] [address] [place] [address] USACarbon dioxide, total [Moles/volume] in Serum or PlasmaOrdered By: Mario Jordan on 62-34-4516PX4 [Moles/Vol]Carbon dioxide, total [Moles/volume] in Serum or Xsrlft62.0-31.0[facility] Medical CenterCO2 [Moles/Vol]26.5 mmol/SOutfth07.0-31.0[facility]ja Medical CenterComment on above:Performed By: #### CBC, CMP ####[facility] [address] [place] [address] USAChloride [Moles/volume] in Serum or PlasmaOrdered By: Mario Jordan on 48-51-0748Spuhqrte [Moles/Vol]Chloride [Moles/volume] in Serum or Mobuwr97-277NsdbtsmvuUniversity Hospitals Ahuja Medical CenterChloride [Moles/Vol]104 mmol/MXfcydi20-286VdjsrtcdlUniversity Hospitals Ahuja Medical CenterComment on above:Performed By: #### CBC, CMP ####[address] [address] USAComplete Blood Count Auto Diffon 22-05-1194Szanfvets (Bld) [#/Vol]0.0 10*3/uLNormal0.0-0.2The [facility] Physician GroupComment on above:Result Comment: PERFORMED BY:[address], [place] [phone] MEDICAL DIRECTORJAJA CATES M.D.Performed By: #### CBC, CMP ####[place] [id number] [place] Basophils/100 WBC (Bld)0.6 %Normal.The [facility] Physician GroupComment on above:Performed By: #### CBC, CMP ####[address] [address] USAEosinophils (Bld) [#/Vol]0.3 10*3/uLNormal0.0-0.45 The [facility] Physician GroupComment on above:Performed By: #### CBC, CMP ####[place] [id number] [place] Eosinophils/100 WBC (Bld)4.0 %Normal.The [facility] Physician GroupComment on above:Performed By: #### CBC, CMP ####[address] [address] USAErythrocyte distribution width (RBC) [Ratio]18.7 % High12.0-14.8The [facility] Hospital Physician GroupComment on above:Performed By: #### CBC, CMP ####[address] [address] USAHematocrit (Bld) [Volume fraction]26.3 %Low38.8-50.0The [facility] Physician GroupComment on above:Performed By: #### CBC, CMP ####[place] [id number] USAHemoglobin (Bld) [Mass/Vol]8.6 g/dLLow 13.0-17.0The [facility] Physician GroupComment on above:Performed By: #### CBC, CMP ####[place] [address] [place] Lymphocytes (Bld) [#/Vol]1.3 10*3/uLNormal1.00-4.8[facility] Comment on above:Performed By: #### CBC, CMP ####[place] [address] USALymphocytes/100 WBC (Bld)16.9 %Normal. The [facility] Physician GroupComment on above:Performed By: #### CBC, CMP ####[address] (RBC) [Entitic mass]29.9 lsMyjhfa73.5-35.2The [facility] Physician GroupComment on above:Performed By: #### CBC, CMP ####[address]V (RBC) [Entitic vol]91.3 fRMssrta48.5-101 The [facility] Physician GroupComment on above:Performed By: #### CBC, CMP ####[place] [address] USAMean Corpuscular HGB Conc32.7 g/oENueoww88.5-35.6The [facility] Physician GroupComment on above:Performed By: #### CBC, CMP ####[place] [address] USAMonocytes (Bld) [#/Vol]0.5 10*3/uLNormal 0.0-0.8The [facility] Physician GroupComment on above:Performed By: #### CBC, CMP ####[place] [address] [place] Monocytes/100 WBC (Bld)6.5 %Normal.The [facility] Physician GroupComment on above:Performed By: #### CBC, CMP ####[place] [address] USANeutrophils (Bld) [#/Vol]5.7 10*3/uLNormal1.8-7.7The [facility] Physician GroupComment on above:Performed By: #### CBC, CMP ####[place] [address] [place] Neutrophils/100 WBC (Bld)72.0 %Normal.The [facility] Physician GroupComment on above:Performed By: #### CBC, CMP ####[place] [address] USANRBC%0.0 /100{WBC}Normal0-0.5The [facility] Hospital Physician GroupComment on above:Performed By: #### CBC, CMP ####[place] [address] USAPlatelet mean volume (Bld) [Entitic vol]8.3 fLNormal6.6-10.1The [facility] Physician GroupComment on above: Performed By: #### CBC, CMP ####[place] [address] USAPlatelets (Bld) [#/Vol]151 10*3/aDCsefqm648-007Ozs [facility] Physician GroupComment on above:Performed By: #### CBC, CMP ####[place] [address] USARBC (Bld) [#/Vol]2.88 10*6/uLLow3.90-5.60The [facility] Physician GroupComment on above:Performed By: #### CBC, CMP ####[place] [address] USAWBC (Bld) [#/Vol]7.9 10*3/uLNormal4.1-10.5The [facility] Physician GroupComment on above:Performed By: #### CBC, CMP ####[address] Comprehensive Metabolic Panelon 78-47-1085Xrrnddf [Mass/Vol]2.8 g/dLLow3.5-5.7 The [facility] Physician GroupComment on above:Performed By: #### CBC, CMP ####[address] [place] [address] [place] Creatinine Clr Calc Dvlnfafm44.36NormMelbourne Regional Medical Center Physician GroupComment on above:Result Comment: PERFORMED BY:[address] [place], [place] [phone] MEDICAL RANCHO WHITE M.D.Performed By: #### CBC, CMP ####[address] [address] USAGFR/1.73 sq M.predicted MDRD (S/P/Bld) [Vol rate/Area]mL/min/{1.73_m2}NormalThe [facility]S Hospital Physician GroupComment on above: Performed By: #### CBC, CMP ####[address] [place] [address] USACreatinine [Mass/volume] in Serum or PlasmaOrdered By: Mario Jordan on 78-87-8663Iajwbkaszf [Mass/Vol]Creatinine [Mass/volume] in Serum or Plasma0.70-1.30[facility] Medical CenterCreatinine [Mass/Vol] 1.15 mg/dLNormmd0.70-1.30[facility] CenterComment on above: Performed By: #### CBC, CMP ####[address] [address] USAGlobulin Calc (S) [Mass/Vol]Ordered By: Mario Jordan on 00-03-0197Yyrnckjr (S) [Mass/Vol]Serum globulin measurement by calculation (mass/volume)[facility] Medical CenterGlucose [Mass/volume] in Serum or PlasmaOrdered By: Mario Jordan on 31-86-9184Rskiqtn [Mass/Vol]Glucose [Mass/volume] in Serum or Wrvndi74-987UhuryvmuiUniversity Hospitals Ahuja Medical CenterGlucose [Mass/Vol]86 mg/vSLerjlf20-159TyhlonndpUniversity Hospitals Ahuja Medical CenterComment on above: ADA recommended reference rangeRandom Glucose [...] recommended reference rangePerformed By: #### CBC, CMP ####[facility] [place] [address] USANo Panel InformationOrdered By: Mario Jordan on 18-79-3433Wbpbncmie GFR (CKD-EPI)> 60.0 mL/MinUniversity Hospitals Ahuja Medical CenterPharmacy Creatinine Clearance (Chem51.36[facility]> 60.0 mL/MinUniversity Hospitals Ahuja Medical Center51.36[facility] Medical CenterPotassium [Moles/volume] in Serum or PlasmaOrdered By: Mario Jordan on 93-82-5167Msoxcpgak [Moles/Vol]Potassium [Moles/volume] in Serum or Plasma3.5-5.1FCleveland Clinic FoundationPotassium [Moles/Vol]3.6 mmol/LNormal3.5-5.1FCleveland Clinic FoundationComment on above:Performed By: #### CBC, CMP ####[address] [address] USAProtein [Mass/volume] in Serum or PlasmaOrdered By: Mario Jordan on 08-15-7625Ywtvipp [Mass/Vol] Protein [Mass/volume] in Serum or PlasmaLow6.4-8.9[facility] Medical CenterProtein [Mass/Vol]5.5 g/dLLow6.4-8.9[facility] Comment on above:Performed By: #### CBC, CMP ####[address] [place] [address] USASerum globulin measurement by calculation (mass/volume)Ordered By: Mario Jordan on 03-16-2904Zrsboprt (S) [Mass/Vol]2.7 g/dLNoDayton Osteopathic HospitalComment on above: Performed By: #### CBC, CMP ####[address] [place] [address] USASerum or plasma albumin/globulin mass ratioOrdered By: Mario Jordan on 20-70-5289Lcvxtae/Globulin [Mass ratio]Serum or plasma albumin/globulin mass ratioUniversity Hospitals Ahuja Medical CenterAlbumin/Globulin [Mass ratio]1.0 {ratio}NormalUniversity Hospitals Ahuja Medical CenterComment on above: Performed By: #### CBC, CMP ####[address] [address] USASerum or plasma anion gap determinationOrdered By: Mario Jordan on 41-87-0122Bqyuw gap [Moles/Vol]Serum or plasma anion gap determination6.0-15.0[facility] Medical CenterAnion gap [Moles/Vol]10.1 mmol/LNormal6.0-15.0[facility] Medical CenterComment on above:Performed By: #### CBC, CMP ####[place] [id number] USASodium [Moles/volume] in Serum or PlasmaOrdered By: Mario Jordan on 84-09-7330Vileqh [Moles/Vol]Sodium [Moles/volume] in Serum or Pbpuri939-483 [facility] Hospitalodium [Moles/Vol]137 mmol/TWatnju776-093 [facility] CenterComment on above:Performed By: #### CBC, CMP ####[address] [address] USAUrea nitrogen [Mass/volume] in Serum or PlasmaOrdered By: Mario Jordan on 07-16-2024 Urea nitrogen [Mass/Vol]Urea nitrogen [Mass/volume] in Serum or PlasmaHigh7-25 [facility]ja Medical CenterUrea nitrogen [Mass/Vol]26 mg/dLHigh7-25 [facility] Medical CenterComment on above:Performed By: #### CBC, CMP ####[address] [address] USAX-ray reportOrdered By: Shaquille Mahoney on 40-78-5796Qlpel reportUniversity Hospitals Ahuja Medical Center Work Phone: xr chest 1V portableon 59-05-3949GJ chest 1V portable NormalThe [facility]S Hospital Physician GroupAerobic Cultureon 72-09-9133Cjlixkj Culture NormalThe [facility]'S Hospital Physician GroupComment on above:Performed By: #### AERC ####[address] [address] USAAerobic cultureOrdered By: Bryce Villeda on 01-13-0084Zjfpvryf identified Aer cx Nom (Unsp spec)Aerobic cultureUniversity Hospitals Ahuja Medical CenterBacteria identified Aer cx Nom (Unsp spec)No Growth 2 DaysUniversity Hospitals Ahuja Medical CenterAnaerobic cultureOrdered By: Bryce Villeda on 20-15-8467Hqyrvxke identified Anaer cx Nom (Unsp spec)No Anaerobes Isolated 3 DaysUniversity Hospitals Ahuja Medical CenterComplete Blood Count Auto Diffon 18-48-7852Fqjbufebl (Bld) [#/Vol]0.1 10*3/uLNormal0.0-0.2The [facility] Physician GroupComment on above:Result Comment: PERFORMED BY:[address] [place], [place] [phone] MEDICAL DIRECTORJAJA WHITE M.D.Performed By: #### CMP, CBC ####[address] [address] USABasophils/100 WBC (Bld)0.5 %Normal.The [facility] Hospital Physician GroupComment on above:Performed By: #### CMP, CBC ####[address] [address] [place] Eosinophils (Bld) [#/Vol]0.4 10*3/uLNormal0.0-0.45The [facility] Comment on above:Performed By: #### CMP, CBC ####[address] [address] USAEosinophils/100 WBC (Bld)3.1 %Normal. The [facility] Hospital Physician GroupComment on above:Performed By: #### CMP, CBC ####[address] [address] [place] Erythrocyte distribution width (RBC) [Ratio]18.7 %High12.0-14.8The [facility] Hospital Physician GroupComment on above:Performed By: #### CMP, CBC ####[place] [address] USAHematocrit (Bld) [Volume fraction]24.7 %Low38.8-50.0The [facility] Hospital Physician GroupComment on above:Performed By: #### CMP, CBC ####[place] [address] USAHemoglobin (Bld) [Mass/Vol]8.0 g/dLLow13.0-17.0The [facility] Hospital Physician GroupComment on above:Performed By: #### CMP, CBC ####[place] [address] [place] Lymphocytes (Bld) [#/Vol]1.2 10*3/uLNormal1.00-4.8The [facility] Comment on above:Performed By: #### CMP, CBC ####[place] [address] USALymphocytes/100 WBC (Bld)10.9 %Normal. The [facility] Hospital Physician GroupComment on above:Performed By: #### CMP, CBC ####[place] [address] USAMCH (RBC) [Entitic mass]29.4 fkNsmbpr36.5-35.2The [facility] Physician GroupComment on above:Performed By: #### CMP, CBC ####[place] [address] USAMCV (RBC) [Entitic vol]90.4 bVXuoeae13.5-101 The [facility] Physician GroupComment on above:Performed By: #### CMP, CBC ####[place] [id number] USAMean Corpuscular HGB Conc32.5 g/dTNfhhcq01.5-35.6The [facility] Hospital Physician GroupComment on above:Performed By: #### CMP, CBC ####[place] [address] USAMonocytes (Bld) [#/Vol]0.7 10*3/uLNormal 0.0-0.8The [facility] Hospital Physician GroupComment on above:Performed By: #### CMP, CBC ####[place] [address] [place] Monocytes/100 WBC (Bld)6.0 %Normal.The [facility] Physician GroupComment on above:Performed By: #### CMP, CBC ####[place] [address] USANeutrophils (Bld) [#/Vol]8.9 10*3/uLHigh1.8-7.7The [facility] Physician GroupComment on above:Performed By: #### CMP, CBC ####[place] [address] [place] Neutrophils/100 WBC (Bld)79.5 %Normal.The [facility] Physician GroupComment on above:Performed By: #### CMP, CBC ####[place] [address] USANRBC%0.0 /100{WBC}Normal0-0.5The [facility] Physician GroupComment on above:Performed By: #### CMP, CBC ####[place] [address] USAPlatelet mean volume (Bld) [Entitic vol]8.0 fLNormal6.6-10.1The [facility] Physician GroupComment on above: Performed By: #### CMP, CBC ####[place] [address] USAPlatelets (Bld) [#/Vol]153 10*3/zFXbgmfd178-017Bfg [facility] Physician GroupComment on above:Performed By: #### CMP, CBC ####[place] [address] USARBC (Bld) [#/Vol]2.73 10*6/uLLow3.90-5.60The [facility] Physician GroupComment on above:Performed By: #### CMP, CBC ####[address] [address] USAWBC (Bld) [#/Vol]11.2 10*3/uLHigh4.1-10.5The [facility] Physician GroupComment on above:Performed By: #### CMP, CBC ####[address] [address] [facility] Comprehensive Metabolic Panelon 98-16-4926Bguztgn [Mass/Vol]2.7 g/dLLow3.5-5.7 The [facility] Physician GroupComment on above:Performed By: #### CMP, CBC ####[address] [address] [facility] Albumin/Globulin [Mass ratio]1.0 {ratio}NormalThe [facility] Physician Group Comment on above:Performed By: #### CMP, CBC ####[address] [address] USAALP [Catalytic activity/Vol]91 U/L Ntfheb41-792Sub [facility] Physician GroupComment on above:Performed By: #### CMP, CBC ####[address] [address] USAALT [Catalytic activity/Vol]8 U/LNormal7-52[facility] Comment on above:Performed By: #### CMP, CBC ####[address] [address] USAAnion gap [Moles/Vol]9.7 mmol/LNormal 6.0-15.0The [facility] Physician GroupComment on above:Performed By: #### CMP, CBC ####[address] [address] USAAST [Catalytic activity/Vol]17 U/BMcadbq55-51Nsa [facility] Physician GroupComment on above:Performed By: #### CMP, CBC ####[address] [address] USABilirubin [Mass/Vol]0.4 mg/dLNormal0.3-1.0The [facility] Physician GroupComment on above:Performed By: #### CMP, CBC ####[address] [place] [address] USACalcium [Mass/Vol]8.2 mg/dLLow8.6-10.3The [facility] Physician GroupComment on above: Performed By: #### CMP, CBC ####[place] [id number] USAChloride [Moles/Vol]103 mmol/PGmrrfp37-216Xjt [facility] Physician [facility] HospitalComment on above:Performed By: #### CMP, CBC ####[place] [address] USACO2 [Moles/Vol]25.8 mmol/PKdllls54.0-31.0The [facility] Physician GroupComment on above:Performed By: #### CMP, CBC ####[place] [address] USACreatinine [Mass/Vol]1.44 mg/dLHigh0.70-1.30The [facility] Physician GroupComment on above:Performed By: #### CMP, CBC ####[place] [address] [place] Creatinine Clr Calc Xwxgjbju68.88NoCone Health Physician GroupComment on above:Result Comment: PERFORMED BY:[address] [place], [place] [phone] MEDICAL DIRECTORJAJA WHITE M.D.Performed By: #### CMP, CBC ####[address] [address] USAEstimated GFR48.213 mL/MinNoCone Health Physician [facility] HospitalComment on above:Performed By: #### CMP, CBC ####[address] [address] USAGlobulin (S) [Mass/Vol]2.7 g/dLJackson North Medical Center Physician [facility] HospitalComment on above:Performed By: #### CMP, CBC ####[address] [address] USAGlucose [Mass/Vol]108 mg/bHGjuo26-797Skm [facility] Comment on above:Result Comment: Random Glucose Reference Range is dependent on time and content of last meal. Glucose of more than 200 mg/dL in a nonstressed, ambulatory subject supports the diagnosis of Diabetes Mellitus. ADA recommended reference rangePerformed By: #### CMP, CBC ####[address] [place] [address] USAPotassium [Moles/Vol]3.5 mmol/LNormal 3.5-5.1The [facility] Physician GroupComment on above:Performed By: #### CMP, CBC ####[address] [place] [address] [place] Protein [Mass/Vol]5.4 g/dLLow6.4-8.9The [facility] Physician [facility] HospitalComment on above:Performed By: #### CMP, CBC ####[address] [place] [address] USASodium [Moles/Vol]135 mmol/THbp835-436Xpr [facility] Physician [facility] HospitalComment on above:Performed By: #### CMP, CBC ####[address] [address] [place] [id number] USAUrea nitrogen [Mass/Vol]32 mg/dLHigh7-25The [facility] Physician [facility] HospitalComment on above: Performed By: #### CMP, CBC ####[place] [id number] USAGram stain microscopyOrdered By: Bryce Villeda on 01-38-8084Jfaavaksxoz observation Gram stain Nom (Unsp spec)Gram stain microscopyUniversity Hospitals Ahuja Medical CenterMicroscopic observation Gram stain Nom (Unsp spec)[facility]ja Medical CenterVancomycin [Mass/volume] in Serum or Plasma --troughOrdered By: Mario Jordan on 93-92-4901Iukpjibbkv trough [Mass/Vol]Serum or plasma trough vancomycin mpyivQfdg62.0-20.0[facility]ja Medical CenterVancomycin trough [Mass/Vol]38.7 ug/aOZkfi94.0-20.0[facility]ja Medical CenterComment on above:Last dose: -Vancomycin,Troughon 74-57-0197Qoccfeckue,Sgbnee53.7 ug/jQYyyi33.0-20.0The [facility] Comment on above:Result Comment: Last dose: -PERFORMED BY:[address] [place], [place] [phone] MEDICAL DIRECTORJAJA CATES M.D.Performed By: #### VANCT ####[address] [address] USACT lower leg RT wo conon 27-80-2926JV lower leg RT wo conNormalThe [facility] Physician [facility] Complete Blood Count Auto Diffon 92-35-4977Bukwttvhx (Bld) [#/Vol]0.0 10*3/uL Normal0.0-0.2The [facility] Hospital Physician GroupComment on above:Result Comment: PERFORMED BY:[address] [place], [place] [phone] MEDICAL DIRECTORJAJA CATES M.D. Performed By: #### CBC, CMP ####[place] [id number] USABasophils/100 WBC (Bld)0.2 %Normal.The [facility] Physician GroupComment on above:Performed By: #### CBC, CMP ####[place] [id number] USAEosinophils (Bld) [#/Vol]0.2 10*3/uLNormal0.0-0.45The [facility] Hospital Physician GroupComment on above: Performed By: #### CBC, CMP ####[place] [address] USAEosinophils/100 WBC (Bld)1.4 %Normal.The [facility] Hospital Physician GroupComment on above:Performed By: #### CBC, CMP ####[place] [id number] USAErythrocyte distribution width (RBC) [Ratio]18.4 %High12.0-14.8The [facility] Physician [facility] Comment on above:Performed By: #### CBC, CMP ####[address] [address] USAHematocrit (Bld) [Volume fraction]24.0 %Low38.8-50.0The [facility] Physician GroupComment on above:Performed By: #### CBC, CMP ####[place] [address] USAHemoglobin (Bld) [Mass/Vol]7.8 g/dLLow13.0-17.0The [facility] Physician Group Comment on above:Performed By: #### CBC, CMP ####[place] [id number] USALymphocytes (Bld) [#/Vol]1.2 10*3/uL Normal1.00-4.8The [facility] Physician GroupComment on above:Performed By: #### CBC, CMP ####[place] [address] USALymphocytes/100 WBC (Bld)7.4 %Normal.The [facility] Physician GroupComment on above:Performed By: #### CBC, CMP ####[place] [id number] USAMCH (RBC) [Entitic mass]29.8 wiHlydxk86.5-35.2The [facility] Physician GroupComment on above:Performed By: #### CBC, CMP ####[place] [id number] USAMCV (RBC) [Entitic vol]91.5 xXZwsllz34.5-101The [facility] Physician GroupComment on above:Performed By: #### CBC, CMP ####[place] [id number] USAMean Corpuscular HGB Conc32.5 g/uHLfvxoe17.5-35.6The [facility] Physician GroupComment on above:Performed By: #### CBC, CMP ####[place] [id number] [place] Monocytes (Bld) [#/Vol]1.0 10*3/uLHigh0.0-0.8The [facility] Comment on above:Performed By: #### CBC, CMP ####[address] [address] USAMonocytes/100 WBC (Bld)6.1 %Normal.The [facility] Physician GroupComment on above:Performed By: #### CBC, CMP ####[address] [address] [place] Neutrophils (Bld) [#/Vol]13.3 10*3/uLHigh1.8-7.7The [facility] Comment on above:Performed By: #### CBC, CMP ####[address] [address] USANeutrophils/100 WBC (Bld)84.9 %Normal. The [facility] Physician GroupComment on above:Performed By: #### CBC, CMP ####[address] [address] USANRBC% 0.1 /100{WBC}Normal0-0.5The [facility] Physician GroupComment on above:Performed By: #### CBC, CMP ####[address] [address] USAPlatelet mean volume (Bld) [Entitic vol]7.9 fLNormal6.6-10.1The [facility] Physician GroupComment on above:Performed By: #### CBC, CMP ####[address] [address] [place] Platelets (Bld) [#/Vol]147 10*3/xSVjb542-207Mnm [facility] Physician GroupComment on above:Performed By: #### CBC, CMP ####[address] [address] USARBC (Bld) [#/Vol]2.63 10*6/uLLow3.90-5.60The [facility] Physician GroupComment on above:Performed By: #### CBC, CMP ####[address] [address] USAWBC (Bld) [#/Vol]15.7 10*3/uLHigh4.1-10.5The [facility] Physician GroupComment on above:Performed By: #### CBC, CMP ####[address] [address] USAComprehensive Metabolic Panelon 57-82-8292Bzxqdgz [Mass/Vol]2.7 g/dLLow3.5-5.7The [facility] Physician GroupComment on above: Performed By: #### CBC, CMP ####[place] [address] USAAlbumin/Globulin [Mass ratio]1.1 {ratio}NormalThe [facility] Hospital Physician GroupComment on above:Performed By: #### CBC, CMP ####[place] [address] USAALP [Catalytic activity/Vol]79 U/XQzsnan78-464Yur [facility] Physician GroupComment on above:Performed By: #### CBC, CMP ####[place] [address] USAALT [Catalytic activity/Vol]4 U/LLow7-52The [facility] Physician GroupComment on above:Performed By: #### CBC, CMP ####[place] [phone] USAAnion gap [Moles/Vol]12.2 mmol/LNormal6.0-15.0The [facility] Physician GroupComment on above:Performed By: #### CBC, CMP ####[place] [phone] USAAST [Catalytic activity/Vol]11 U/SBji22-61Nhm [facility] Physician GroupComment on above:Performed By: #### CBC, CMP ####[place] [phone] [place] Bilirubin [Mass/Vol]0.4 mg/dLNormal0.3-1.0The [facility] Physician GroupComment on above:Performed By: #### CBC, CMP ####[place] [address] USACalcium [Mass/Vol]8.2 mg/dLLow8.6-10.3The [facility] Physician GroupComment on above:Performed By: #### CBC, CMP ####[place] [address] [place] Chloride [Moles/Vol]101 mmol/FTsljlh90-127Mtx [facility] Physician GroupComment on above:Performed By: #### CBC, CMP ####[place] [id number] USACO2 [Moles/Vol]22.1 mmol/FZyzbez30.0-31.0The [facility] Physician GroupComment on above:Performed By: #### CBC, CMP ####[place] [id number] [facility] Creatinine [Mass/Vol]1.63 mg/dLHigh0.70-1.30The [facility] Physician GroupComment on above:Performed By: #### CBC, CMP ####[place] [address] USACreatinine Clr Calc Iqekmxix43.75NormMelbourne Regional Medical Center Physician GroupComment on above:Result Comment: PERFORMED BY:[address] [place], [place] [phone] MEDICAL DIRECTORJAJA CATES M.D.Performed By: #### CBC, CMP ####[address] Estimated GFR41.809 mL/MinNoCone Health Physician [facility] General HospitalComment on above: Performed By: #### CBC, CMP ####[place] [phone] USAGlobulin (S) [Mass/Vol]2.5 g/dLJackson North Medical Center Physician [facility] General HospitalComment on above:Performed By: #### CBC, CMP ####[place] [address] USAGlucose [Mass/Vol]81 mg/oKJxepjx56-680Ixl [facility] Physician GroupComment on above:Result Comment: Random Glucose Reference Range is dependent on time and content of last meal. Glucose of more than 200 mg/dL in a nonstressed, ambulatory subject supports the diagnosis of Diabetes Mellitus. ADA recommended reference rangePerformed By: #### CBC, CMP ####[facility] [place] [address] USAPotassium [Moles/Vol]3.3 mmol/LLow3.5-5.1The [facility] Comment on above:Performed By: #### CBC, CMP ####[place] [address] [place] [address] USAProtein [Mass/Vol]5.2 g/dLLow6.4-8.9 The [facility] Physician GroupComment on above:Performed By: #### CBC, CMP ####[place] [address] [place] [address] USASodium [Moles/Vol]132 mmol/JNix410-613Qek [facility] Physician GroupComment on above: Performed By: #### CBC, CMP ####[address] [address] USAUrea nitrogen [Mass/Vol]34 mg/dLHigh7-25The [facility] Physician GroupComment on above:Performed By: #### CBC, CMP ####[place] [phone] [facility] Vancomycin [Mass/volume] in Serum or Plasma --peakOrdered By: Mario Jordan on 71-18-4703Hpvwfdoird peak [Mass/Vol]Vancomycin [Mass/volume] in Serum or Plasma --peak20.0-40.0[facility] Ahuja Medical CenterVancomycin peak [Mass/Vol]27.3 ug/mL20.0-40.0[facility]huja Medical CenterComment on above:Last dose: - Vancomycin,Peakon 62-79-1359Fkqvsvzxpi,Peak27.3 ug/cNYguuri45.0-40.0The [facility] Physician GroupComment on above:Order Comment: Comment ?DRAW 1 HOUR AFTER INFUSION COMPLETES Date of last dose?: 20240712 Time of last dose?: 1800 Result Comment: Last dose: -PERFORMED BY:[address] [place], [place] [phone] MEDICAL DIRECTORJAJA CATES M.D.Performed By: #### VANCP ####[place] [address] [place] [address] USAAcanthocytes [Presence] in Blood by Light microscopyOrdered By: Mario Jordan on 24-68-0540Ltvbirvnvghv LM Ql (Bld) Acanthocytes [Presence] in Blood by Light microscopyUniversity Hospitals Ahuja Medical CenterAcanthocytes LM Ql (Bld)SlightUniversity Hospitals Ahuja Medical Center Anisocytosis LM Ql (Bld)Ordered By: Mario Jordan on 85-18-9660Eqnmjwfpdwcs Ql (Bld)Anisocytosis [Presence] in Blood by Light microscopyUniversity Hospitals Ahuja Medical CenterAnisocytosis [Presence] in Blood by Light microscopyOrdered By: Mario Jordan on 13-78-1199Qayvgiztfrlr Ql (Bld)SlightNormalUniversity Hospitals Ahuja Medical CenterComment on above:Performed By: #### PHOS, CMP, SCAN CBC, MG ####[place] [address] [place] [phone] USACT abdomen pelvis wo conon 35-54-2645UM abdomen pelvis wo conNormalThe [facility] Physician [facility] HospitalComprehensive Metabolic Panelon 19-02-9604Trakvmk [Mass/Vol]2.6 g/dLLow3.5-5.7The [facility] Physician GroupComment on above:Performed By: #### PHOS, CMP, SCAN CBC, MG ####[place] [address] [place] [address] USAAlbumin/Globulin [Mass ratio]1.1 {ratio}NormalThe [facility] Physician GroupComment on above:Performed By: #### PHOS, CMP, SCAN CBC, MG ####[place] [address] [place] [address] USAALP [Catalytic activity/Vol]69 U/IVxgbmi93-889Znw [facility] Group Comment on above:Performed By: #### PHOS, CMP, SCAN CBC, MG ####[place] [address] [place] [address] USAALT [Catalytic activity/Vol]5 U/LLow7-52The [facility] Physician GroupComment on above:Performed By: #### PHOS, CMP, SCAN CBC, MG ####[place] [address] USAAnion gap [Moles/Vol]11.7 mmol/LNormal6.0-15.0The [facility] Physician GroupComment on above:Performed By: #### PHOS, CMP, SCAN CBC, MG ####[place] [address] USAAST [Catalytic activity/Vol]11 U/VDuo13-31Eoi [facility] Comment on above:Performed By: #### PHOS, CMP, SCAN CBC, MG ####[place] [address] USABilirubin [Mass/Vol] 0.5 mg/dLNormal0.3-1.0The [facility] Physician GroupComment on above:Performed By: #### PHOS, CMP, SCAN CBC, MG ####[place] [address] USACalcium [Mass/Vol]8.1 mg/dLLow8.6-10.3The [facility] Physician GroupComment on above:Performed By: #### PHOS, CMP, SCAN CBC, MG ####[place] [address] [place] Chloride [Moles/Vol]101 mmol/ZSlxcbf82-830Erz [facility] Physician GroupComment on above:Performed By: #### PHOS, CMP, SCAN CBC, MG ####[place] [address] USACO2 [Moles/Vol]24.2 mmol/L Pkhxfl73.0-31.0The [facility] Physician GroupComment on above:Performed By: #### PHOS, CMP, SCAN CBC, MG ####[place] [address] USACreatinine [Mass/Vol]1.75 mg/dLHigh0.70-1.30The [facility] Physician GroupComment on above:Performed By: #### PHOS, CMP, SCAN CBC, MG ####[place] [address] USACreatinine Clr Calc Rbllnalx99.84NoCone Health Physician [facility] County General HospitalComment on above:Performed By: #### PHOS, CMP, SCAN CBC, MG ####[place] [address] [place] [address] USAEstimated GFR38.393 mL/Min NormalThe [facility] Physician [facility] HospitalComment on above:Performed By: #### PHOS, CMP, SCAN CBC, MG ####[place] [address] USAGlobulin (S) [Mass/Vol]2.3 g/dLNoCone Health Physician [facility] Comment on above:Performed By: #### PHOS, CMP, SCAN CBC, MG ####[place] [address] USAGlucose [Mass/Vol]66 mg/rSRxi98-075Gmt [facility] Physician GroupComment on above:Result Comment: Random Glucose Reference Range is dependent on time and content of last meal. Glucose of more than 200 mg/dL in a nonstressed, ambulatory subject supports the diagnosis of Diabetes Mellitus. ADA recommended reference rangePerformed By: #### PHOS, CMP, SCAN CBC, MG ####[place] [address] USAPotassium [Moles/Vol]3.9 mmol/LNormal3.5-5.1The [facility] Physician [facility] HospitalComment on above:Performed By: #### PHOS, CMP, SCAN CBC, MG ####[place] [address] USAProtein [Mass/Vol]4.9 g/dLSignificant change down6.4-8.9The [facility] Physician [facility] HospitalComment on above:Performed By: #### PHOS, CMP, SCAN CBC, MG ####[place] [address] USASodium [Moles/Vol]133 mmol/JXiv331-432Jyg [facility] Physician [facility] HospitalComment on above: Performed By: #### PHOS, CMP, SCAN CBC, MG ####[address] [place] [address] USAUrea nitrogen [Mass/Vol]34 mg/dLUnited [facility] Center 7 [facility] Physician GroupComment on above:Performed By: #### PHOS, CMP, SCAN CBC, MG ####[place] [address] [place] [address] USADacrocytes [Presence] in Blood by Light microscopyOrdered By: Mario Jordan on 07-45-3868Xyszksymak LM Ql (Bld)Teardrop cell detectionUniversity Hospitals Ahuja Medical CenterDacrocytes LM Ql (Bld)SlightUniversity Hospitals Ahuja Medical CenterErythrocyte morphology finding [Identifier] in BloodOrdered By: aMrio Jordan on 73-51-5141BDE morphology finding Nom (Bld)RBC morphologyUniversity Hospitals Ahuja Medical CenterRBC morphology finding Nom (Bld)N/The [facility] Hospital at SouthwoodsHypochromia LM Ql (Bld)Ordered By: Mario Jordan on 07-13-2024 Hypochromia Ql (Bld)Hypochromia [Presence] in Blood by Light microscopyUniversity Hospitals Ahuja Medical CenterHypochromia Ql (Bld)[facility] Tiffin HospitalMRSA - MSSA Nasal PCRon 81-52-5771DCTW - MSSA Nasal PCRNoCone Health Physician GroupComment on above:Performed By: #### MRSA - MSSA PCR ####[address] [address] [facility] Magnesium [Mass/volume] in Serum or PlasmaOrdered By: Mario Jordan on 07-13-2024 Magnesium [Mass/Vol]Magnesium [Mass/volume] in Serum or PlasmaLow1.9-2.7 [facility]ja Medical CenterMagnesium [Mass/Vol]1.8 mg/dLLow1.9-2.7 [facility]ja Medical CenterComment on above:Result Comment: PERFORMED BY:[address] [place], [place] [phone] MEDICAL DIRECTORJAJA CATES M.D.Performed By: #### PHOS, CMP, SCAN CBC, MG ####[address] [address] USAMicrocytes LM Ql (Bld)Ordered By: Mario Jordan on 23-78-7683Nlpkqomjij Ql (Bld)Microcytes [Presence] in Blood by Light microscopy [facility]huja Medical CenterMicrocytes Ql (Bld)[facility]iffin HospitalNo Panel InformationOrdered By: Mario Jordan on 97-47-5936Cbxdk Screen MRSA/MSSThe Surgical Hospital at SouthwoodsOvalocytes [Presence] in Blood by Light microscopyOrdered By: Mario Jordan on 96-08-2754Iymfasyrdm LM Ql (Bld) Ovalocyte detectionUniversity Hospitals Ahuja Medical CenterOvalocytes LM Ql (Bld)[facility] Cleveland-FairhillPhosphate [Mass/volume] in Serum or Plasma Ordered By: Mario Jordan on 74-89-1549Sobyzxvxn [Mass/Vol]Phosphate [Mass/volume] in Serum or Plasma2.5-4.5FCleveland Clinic FoundationPhosphate [Mass/Vol] 3.0 mg/dLNormal2.5-4.5FCleveland Clinic FoundationComment on above: Performed By: #### PHOS, CMP, SCAN CBC, MG ####[facility] [address] [place] [id number] USAPlatelet adequacy [Presence] in Blood by Light microscopyOrdered By: Mario Jordan on 02-90-9499Xgnyuawxj LM Ql (Bld) Platelet adequacy [Presence] in Blood by Light microscopyNoDayton Osteopathic HospitalPlatelets LM Ql (Bld)NormalNoDayton Osteopathic HospitalPlatelet morphology finding [Identifier] in BloodOrdered By: Mario Jordan on 01-85-2651Wsvvziyx morphology finding Nom (Bld)Platelet morphology finding [Identifier] in BloodUniversity Hospitals Ahuja Medical CenterPlatelet morphology finding Nom (Bld)N/AFCleveland Clinic FoundationPlatelets Large [Presence] in Blood by Light microscopyOrdered By: Mario Jordan on 07-13-2024 Platelets Large LM Ql (Bld)Platelets Large [Presence] in Blood by Light microscopyUniversity Hospitals Ahuja Medical CenterPlatelets Large LM Ql (Bld)Slight [facility]ja Medical CenterPoikilocytosis [Presence] in Blood by Light microscopyOrdered By: Mario Jordan on 98-67-2616Pxuwsdulnqvsou LM Ql (Bld) Poikilocytosis [Presence] in Blood by Light microscopyUniversity Hospitals Ahuja Medical CenterPoikilocytosis LM Ql (Bld)ModerateUniversity Hospitals Ahuja Medical Center Polychromasia [Presence] in Blood by Light microscopyOrdered By: Mario Jordan on 42-33-6667Qsrtsoriwrxya LM Ql (Bld)Polychromasia [Presence] in Blood by Light microscopyUniversity Hospitals Ahuja Medical CenterPolychromasia LM Ql (Bld)Slight [facility] Ferry Hospitalcan and CBCon 78-79-7003SdbxhpthzyqnQjedca NormalThe [facility] Physician GroupComment on above:Performed By: #### PHOS, CMP, SCAN CBC, MG ####[place] [address] USABasophils (Bld) [#/Vol]0.1 10*3/uLNormal0.0-0.2The [facility] Physician GroupComment on above:Performed By: #### PHOS, CMP, SCAN CBC, MG ####[place] [id number] [place] Basophils/100 WBC (Bld)0.2 %Normal.The [facility] Physician GroupComment on above:Performed By: #### PHOS, CMP, SCAN CBC, MG ####[address] [address] USAEosinophils (Bld) [#/Vol]0.0 10*3/uL Normal0.0-0.45The [facility] Physician GroupComment on above:Performed By: #### PHOS, CMP, SCAN CBC, MG ####[place] [id number] USAEosinophils/100 WBC (Bld)0.1 %Normal.The [facility] Physician GroupComment on above:Performed By: #### PHOS, CMP, SCAN CBC, MG ####[place] [id number] [place] Erythrocyte distribution width (RBC) [Ratio]18.4 %High12.0-14.8The [facility] Physician GroupComment on above:Performed By: #### PHOS, CMP, SCAN CBC, MG ####[address] [address] [place] Hematocrit (Bld) [Volume fraction]25.1 %Low38.8-50.0The [facility] Physician GroupComment on above:Performed By: #### PHOS, CMP, SCAN CBC, MG ####[address] [address] USAHemoglobin (Bld) [Mass/Vol]8.0 g/dLLow13.0-17.0The [facility] Physician GroupComment on above: Performed By: #### PHOS, CMP, SCAN CBC, MG ####[address] [address] USAHypochromasiaSHighsmith-Rainey Specialty Hospital Physician GroupComment on above:Performed By: #### PHOS, CMP, SCAN CBC, MG ####[address] [address] USALarge PlateletsSHighsmith-Rainey Specialty Hospital Physician GroupComment on above:Result Comment: PERFORMED BY:[address]ToshaGU[place], [place] [phone] MEDICAL DIRECTORJAJA CATES M.D. Performed By: #### PHOS, CMP, SCAN CBC, MG ####[address] [address] USALymphocytes (Bld) [#/Vol]0.7 10*3/uL Low1.00-4.8The [facility] Physician GroupComment on above:Performed By: #### PHOS, CMP, SCAN CBC, MG ####[address] [address] USALymphocytes/100 WBC (Bld)2.7 %Normal.The [facility] Physician GroupComment on above:Performed By: #### PHOS, CMP, SCAN CBC, MG ####[address] [address] USAMCH (RBC) [Entitic mass]29.1 iiMqfbsv38.5-35.2The [facility] Physician GroupComment on above:Performed By: #### PHOS, CMP, SCAN CBC, MG ####[place] [address] USAMCV (RBC) [Entitic vol]90.9 fL Dzeumv55.5-101The [facility] Physician GroupComment on above:Performed By: #### PHOS, CMP, SCAN CBC, MG ####[place] [address] USAMean Corpuscular HGB Conc32.0 g/dLLow32.5-35.6The [facility] Physician GroupComment on above:Performed By: #### PHOS, CMP, SCAN CBC, MG ####[place] [address] USAMicrocytosisSlightNormalThe [facility] Physician GroupComment on above: Performed By: #### PHOS, CMP, SCAN CBC, MG ####[place] [address] USAMonocytes (Bld) [#/Vol]1.8 10*3/uLHigh 0.0-0.8The [facility] Physician GroupComment on above:Performed By: #### PHOS, CMP, SCAN CBC, MG ####[place] [address] USAMonocytes/100 WBC (Bld)6.8 %Normal.The [facility] Group Comment on above:Performed By: #### PHOS, CMP, SCAN CBC, MG ####[place] [address] USANeutrophils (Bld) [#/Vol]24.1 10*3/uLHigh1.8-7.7The [facility] Physician GroupComment on above: Performed By: #### PHOS, CMP, SCAN CBC, MG ####[place] [address] USANeutrophils/100 WBC (Bld)90.2 %Normal. The [facility] Physician GroupComment on above:Performed By: #### PHOS, CMP, SCAN CBC, MG ####[place] [place] [address] USANRBC%0.1 /100{WBC}Normal0-0.5The [facility] Physician GroupComment on above: Performed By: #### PHOS, CMP, SCAN CBC, MG ####[address] [address] USAOvalocytesSlightJackson North Medical Center Physician GroupComment on above:Performed By: #### PHOS, CMP, SCAN CBC, MG ####[address] [address] [place] Platelet EstimateNormalNormalJackson North Medical Center Physician GroupComment on above:Performed By: #### PHOS, CMP, SCAN CBC, MG ####[address] [address] USAPlatelet mean volume (Bld) [Entitic vol]7.7 fLNormal6.6-10.1The [facility] Physician GroupComment on above:Performed By: #### PHOS, CMP, SCAN CBC, MG ####[address] [address] USAPlatelets (Bld) [#/Vol]179 10*3/xIPqwrvu481-075Wiq [facility] Physician GroupComment on above:Performed By: #### PHOS, CMP, SCAN CBC, MG ####[address] [address] USAPoikilocytosisModerateNormMelbourne Regional Medical Center Physician GroupComment on above: Performed By: #### PHOS, CMP, SCAN CBC, MG ####[address] [address] USAPolychromasiaSlightJackson North Medical Center Physician GroupComment on above:Performed By: #### PHOS, CMP, SCAN CBC, MG ####[address] [address] USARBC (Bld) [#/Vol]2.77 10*6/uLLow3.90-5.60The [facility] Physician GroupComment on above:Performed By: #### PHOS, CMP, SCAN CBC, MG ####[address] [place] [address] USASchistocytesUNC Health Wayne Physician GroupComment on above:Performed By: #### PHOS, CMP, SCAN CBC, MG ####[address] [address] USATear Drop CellsSlightJackson North Medical Center Physician GroupComment on above:Performed By: #### PHOS, CMP, SCAN CBC, MG ####[address] [address] USAWBC (Bld) [#/Vol]26.7 10*3/uLHigh4.1-10.5The [facility] Physician GroupComment on above:Performed By: #### PHOS, CMP, SCAN CBC, MG ####[address] [address] USASchistocytes [Presence] in Blood by Light microscopyOrdered By: Mario Jordan on 13-82-4852Tivisorsrdsd LM Ql (Bld)Schistocytes [Presence] in Blood by Light microscopyMartins Ferry Hospitalchistocytes LM Ql (Bld)Slight Martins Ferry Hospitaltool Occult Blood (Guaiac)on 67-21-5692Kucrp Occult Blood (Guaiac)NormalThe [facility] Physician GroupComment on above: Performed By: #### OB(GUAIAC) ####[address] [address]VZQJjejw gastrointestinal hemoglobin detectionOrdered By: Melvi Qureshi on 27-46-8507Xyyktoyoxi.gastrointestinal Ql (Stl)Stool gastrointestinal hemoglobin detectionUniversity Hospitals Ahuja Medical Center Hemoglobin.gastrointestinal Ql (Stl)[facility]huja Medical CenterAlanine aminotransferase [Enzymatic activity/volume] in Serum or PlasmaOrdered By: Melvi Qureshi on 05-81-5735MQX [Catalytic activity/Vol]Alanine aminotransferase [Enzymatic activity/volume] in Serum or PlasmaLow7-52[facility]ja Medical CenterAlbumin [Mass/volume] in Serum or Plasma by Bromocresol green (BCG) dye binding methoOrdered By: Melvi Qureshi on 32-09-0885Jcmykax BCG dye [Mass/Vol] Albumin [Mass/volume] in Serum or Plasma by Bromocresol green (BCG) dye binding methoLow3.5-5.7FCleveland Clinic FoundationAlkaline phosphatase [Enzymatic activity/volume] in Serum or PlasmaOrdered By: Melvi Qureshi on 68-85-2242EEX [Catalytic activity/Vol]Alkaline phosphatase [Enzymatic activity/volume] in Serum or Msmcpz42-799WfgxkvfzqUniversity Hospitals Ahuja Medical CenterAmbulatory Visit Summaryon 33-36-6343Qcrnkrfneh Visit SummaryAmbulatory Visit Summary TAVO WALLIS :1940 [...] Ambar Summers PA-C Where: [facility] [address] [place] [address]- You Need to Schedule the Following Appointments [...] Arthritis BPH with obstruction/lowe (more content not included)...[facility] Cleveland Medical CenterAspartate aminotransferase [Enzymatic activity/volume] in Serum or PlasmaOrdered By: Melvi Qureshi on 42-67-1264CXF [Catalytic activity/Vol]Aspartate aminotransferase [Enzymatic activity/volume] in Serum or Ixvujr52-83YusdxzslwUniversity Hospitals Ahuja Medical CenterBNP ser/plasOrdered By: Melvi Qureshi on 07-12-2024 Natriuretic peptide B (Bld) [Mass/Vol]164.0 pg/mLHigh5-100[facility] Ahuja Medical CenterComment on above:Result Comment: PERFORMED BY:[facility] [place], [place] [phone] MEDICAL DIRECTORJAJA CATES M.D.Performed By: #### BNP ####[facility] [place] [address] USABacteria [Presence] in Urine sediment by Light microscopyOrdered By: Melvi Qureshi on 36-40-7631Yfadjeix LM Ql (Urine sed)Bacteria [Presence] in Urine sediment by Light microscopyKettering Health MiamisburgBacteria LM Ql (Urine sed)1+ [HPF][facility] Health MiamisburgBand form neutrophils/100 WBC Manual cnt (Bld)Ordered By: Mario Jordan on 88-77-4266Rlvu form neutrophils/100 WBC (Bld) Peripheral white blood cell differential % bands, microscopic exam0-Cleveland Clinic FoundationBand form neutrophils/100 leukocytes in Blood by Manual countOrdered By: Mario [place] on 04-45-8111Wwiy form neutrophils/100 WBC (Bld)3 % Normal0-Cleveland Clinic FoundationComment on above:Order Comment: 4P/33 Performed By: #### DIFF CBC ####[facility] [address] [id number] USABasophils Auto (Bld) [#/Vol]Ordered By: Melvi Qureshi on 29-82-0398Syczuyrra (Bld) [#/Vol]Automated basophil count0.0-0.2FCleveland Clinic FoundationBasophils/100 WBC Auto (Bld)Ordered By: Melvi Qureshi on 24-88-9554Zvvcsjtfi/100 WBC (Bld)Automated basophil %.[facility]huja Medical CenterBilirubin Test strip Ql (U)Ordered By: Melvi Qureshi on 44-94-5838Ukseqksgy Ql (U)Bilirubin.total [Presence] in Urine by Test stripNegativeUniversity Hospitals Ahuja Medical CenterBilirubin Ql (U)See commentNegativeUniversity Hospitals Ahuja Medical CenterComment on above:Unable to obtain accurate result due to color interference.Bilirubin.total [Mass/volume] in Serum or PlasmaOrdered By: Melvi Qureshi on 24-62-8886Snsocbuxf [Mass/Vol]Bilirubin.total [Mass/volume] in Serum or Plasma0.3-1.0[facility]ja Medical CenterBlood Cultureon 94-12-7582Sgwsmdvg identified Cx Nom (Bld)NormalThe [facility] Hospital Physician GroupComment on above: Performed By: #### HS TROP, CBC, CUBLD, MG, LACTIC, CMP ####[facility] [address] [place] [address] USACOVID Cepheid NegativeOrdered By: Melvi Qureshi on 20-45-9948AZHI-CoV-2 (COVID-19) Ab IA QlNegativeNegKettering Health HamiltonComment on above:This is a duplicate Cepheid Xpert Xpress CoV-2/Flu/RSV Plus RNA by RT-PCR result to be used for statistical tracking purpose only.SARS-CoV-2 (COVID-19) RNA SMITHA+probe Ql (Unsp spec)COVID CepheidNegativeMartins Ferry HospitalARS-CoV-2 (COVID-19) RNA SMITHA+probe Ql (Unsp spec)NegativeNormalNegativeUniversity Hospitals Ahuja Medical Center Comment on above:Result Comment: This is a duplicate Cepheid Xpert Xpress CoV- 2/Flu/RSV Plus RNA by RT-PCR result zaira used for statistical tracking purpose only.PERFORMED BY:[address] [address] [address] [place], [place] [phone] MEDICAL DIRECTORJAJA CATES M.D. Performed By: #### COVID19 FLU RSV, CEPHEID NEG ####[address] [place] [address] USACalcium [Mass/volume] in Serum or PlasmaOrdered By: Melvi Qureshi on 95-75-8511Ucjpwcx [Mass/Vol]Calcium [Mass/volume] in Serum or Plasma8.6-10.3FCleveland Clinic FoundationCarbon dioxide, total [Moles/volume] in Serum or PlasmaOrdered By: Melvi Qureshi on 60-86-0373ON4 [Moles/Vol]Carbon dioxide, total [Moles/volume] in Serum or Plasma 21.0-31.0[facility]ja Medical CenterChloride [Moles/volume] in Serum or PlasmaOrdered By: Melvi Qureshi on 52-54-8280Lspurbmx [Moles/Vol]Chloride [Moles/volume] in Serum or Uwskiv84-142CtsadmxulUniversity Hospitals Ahuja Medical CenterComplete Blood Count Auto Diffon 57-88-2568Pszugmzdo (Bld) [#/Vol]0.0 10*3/uLNormal 0.0-0.2The [facility] Hospital Physician GroupComment on above:Result Comment: PERFORMED BY:[address] [address] [address] [place], [place] [phone] MEDICAL DIRECTORJAJA CATES M.D.Performed By: #### HS TROP, CBC, CUBLD, MG, LACTIC, CMP ####[place] [address] USABasophils/100 WBC (Bld)0.3 %Normal.The [facility] Hospital Physician GroupComment on above:Performed By: #### HS TROP, CBC, CUBLD, MG, LACTIC, CMP ####[place] [address] USAEosinophils (Bld) [#/Vol]0.1 10*3/uLNormal0.0-0.45The [facility]S Hospital Physician GroupComment on above:Performed By: #### HS TROP, CBC, CUBLD, MG, LACTIC, CMP ####[place] [address] USAEosinophils/100 WBC (Bld)1.3 %Normal.The [facility] Comment on above:Performed By: #### HS TROP, CBC, CUBLD, MG, LACTIC, CMP ####[place] [address] [place] Erythrocyte distribution width (RBC) [Ratio]17.9 %High12.0-14.8The [facility] Hospital Physician GroupComment on above:Performed By: #### HS TROP, CBC, CUBLD, MG, LACTIC, CMP ####[place] [address] USAHematocrit (Bld) [Volume fraction]29.8 %Low38.8-50.0The [facility] Hospital Physician GroupComment on above:Performed By: #### HS TROP, CBC, CUBLD, MG, LACTIC, CMP ####[place] [address] USAHemoglobin (Bld) [Mass/Vol]9.9 g/dLLow13.0-17.0The [facility] Hospital Physician GroupComment on above:Performed By: #### HS TROP, CBC, CUBLD, MG, LACTIC, CMP ####[place] [address] [place] Lymphocytes (Bld) [#/Vol]0.3 10*3/uLLow1.00-4.8The [facility] Comment on above:Performed By: #### HS TROP, CBC, CUBLD, MG, LACTIC, CMP ####[address] Lymphocytes/100 WBC (Bld)4.2 %Normal.The [facility] Hospital Physician GroupComment on above:Performed By: #### HS TROP, CBC, CUBLD, MG, LACTIC, CMP ####[address] (RBC) [Entitic mass]30.1 usIszoev58.5-35.2The [facility] Hospital Physician GroupComment on above: Performed By: #### HS TROP, CBC, CUBLD, MG, LACTIC, CMP ####[address] (RBC) [Entitic vol]90.8 fL Aytioj67.5-101The [facility] Hospital Physician GroupComment on above:Performed By: #### HS TROP, CBC, CUBLD, MG, LACTIC, CMP ####[place] [address] USAMean Corpuscular HGB Conc33.2 g/dLNormal 32.5-35.6The [facility] Hospital Physician GroupComment on above:Performed By: #### HS TROP, CBC, CUBLD, MG, LACTIC, CMP ####[place] [address] USAMonocyte Distribution WidthNot performedNormal 0.00-20.00The [facility]S Hospital Physician GroupComment on above:Result Comment: Unable to calculate MDW because the Absolute Monocyte Count is <0.8.Performed By: #### HS TROP, CBC, CUBLD, MG, LACTIC, CMP ####[place] [address] USAMonocytes (Bld) [#/Vol]0.0 10*3/uLNormal 0.0-0.8The [facility] Hospital Physician GroupComment on above:Performed By: #### HS TROP, CBC, CUBLD, MG, LACTIC, CMP ####[address] [address] USAMonocytes/100 WBC (Bld)0.4 %Normal.The [facility] Hospital Physician GroupComment on above:Performed By: #### HS TROP, CBC, CUBLD, MG, LACTIC, CMP ####[place] [address] USANeutrophils (Bld) [#/Vol]6.3 10*3/uLNormal1.8-7.7The [facility] Hospital Physician GroupComment on above:Performed By: #### HS TROP, CBC, CUBLD, MG, LACTIC, CMP ####[place] [address] USANeutrophils/100 WBC (Bld)93.8 %Normal.The [facility] Comment on above:Performed By: #### HS TROP, CBC, CUBLD, MG, LACTIC, CMP ####[place] [id number] USANRBC% 0.2 /100{WBC}Normal0-0.5The [facility] Hospital Physician GroupComment on above:Performed By: #### HS TROP, CBC, CUBLD, MG, LACTIC, CMP ####[place] [id number] USAPlatelet mean volume (Bld) [Entitic vol]7.2 fLNormal6.6-10.1The [facility] Hospital Physician GroupComment on above:Performed By: #### HS TROP, CBC, CUBLD, MG, LACTIC, CMP ####[place] [address] USAPlatelets (Bld) [#/Vol]288 10*3/uL Tufuou963-893Ayn [facility] Physician GroupComment on above:Performed By: #### HS TROP, CBC, CUBLD, MG, LACTIC, CMP ####[place] [address] USARBC (Bld) [#/Vol]3.28 10*6/uLLow3.90-5.60The [facility] Hospital Physician GroupComment on above:Performed By: #### HS TROP, CBC, CUBLD, MG, LACTIC, CMP ####[place] [address] USAWBC (Bld) [#/Vol]6.5 10*3/uLNormal4.1-10.5The [facility] Hospital Physician GroupComment on above:Performed By: #### HS TROP, CBC, CUBLD, MG, LACTIC, CMP ####[place] [id number] USAComprehensive Metabolic Panelon 08-43-9387Xccslxl [Mass/Vol]3.4 g/dLLow3.5-5.7The [facility] Hospital Physician GroupComment on above: Performed By: #### HS TROP, CBC, CUBLD, MG, LACTIC, CMP ####[place] [address] USAAlbumin/Globulin [Mass ratio] 1.0 {ratio}NormalThe Levine Children'S Hospital Physician GroupComment on above:Performed By: #### HS TROP, CBC, CUBLD, MG, LACTIC, CMP ####[place] [id number] USAALP [Catalytic activity/Vol]100 U/LNormal 34-104The [facility] Hospital Physician GroupComment on above:Performed By: #### HS TROP, CBC, CUBLD, MG, LACTIC, CMP ####[place] [address] USAALT [Catalytic activity/Vol]6 U/LLow7-52The [facility] Hospital Physician GroupComment on above:Performed By: #### HS TROP, CBC, CUBLD, MG, LACTIC, CMP ####[place] [id number] USAAnion gap [Moles/Vol]9.7 mmol/LNormal6.0-15.0The [facility] Physician GroupComment on above:Performed By: #### HS TROP, CBC, CUBLD, MG, LACTIC, CMP ####[place] [address] USAAST [Catalytic activity/Vol]13 U/ESoyaww78-85Dri [facility] Physician GroupComment on above:Performed By: #### HS TROP, CBC, CUBLD, MG, LACTIC, CMP ####[place] [address] USABilirubin [Mass/Vol]0.6 mg/dLNormal0.3-1.0The [facility] Physician GroupComment on above:Performed By: #### HS TROP, CBC, CUBLD, MG, LACTIC, CMP ####[place] [address] USACalcium [Mass/Vol]9.0 mg/dLNormal8.6-10.3The [facility] Physician GroupComment on above:Performed By: #### HS TROP, CBC, CUBLD, MG, LACTIC, CMP ####[place] [address] USAChloride [Moles/Vol]102 mmol/OKqswai49-994Xxv [facility] Physician GroupComment on above:Performed By: #### HS TROP, CBC, CUBLD, MG, LACTIC, CMP ####[place] [address] USACO2 [Moles/Vol]27.2 mmol/NEblzmi72.0-31.0The [facility] Physician GroupComment on above:Performed By: #### HS TROP, CBC, CUBLD, MG, LACTIC, CMP ####[place] [address] USACreatinine [Mass/Vol]1.62 mg/dLHigh0.70-1.30The [facility] Physician GroupComment on above:Performed By: #### HS TROP, CBC, CUBLD, MG, LACTIC, CMP ####[place] [address] USACreatinine Clr Calc Ynufgzvz52.97NormMelbourne Regional Medical Center Physician GroupComment on above:Performed By: #### HS TROP, CBC, CUBLD, MG, LACTIC, CMP ####[place] [address] USAEstimated GFR42.119 mL/MinNoCone Health Physician GroupComment on above:Performed By: #### HS TROP, CBC, CUBLD, MG, LACTIC, CMP ####[place] [address] USAGlobulin (S) [Mass/Vol]3.3 g/dLNormalThe [facility] Physician GroupComment on above:Performed By: #### HS TROP, CBC, CUBLD, MG, LACTIC, CMP ####[place] [address] USAGlucose [Mass/Vol]69 mg/cWIlu78-994Fsy [facility] Physician GroupComment on above:Result Comment: Random Glucose Reference Range is dependent on time and content of last meal. Glucose of more than 200 mg/dL in a nonstressed, ambulatory subject supports the diagnosis of Diabetes Mellitus. ADA recommended reference rangePerformed By: #### HS TROP, CBC, CUBLD, MG, LACTIC, CMP ####[place] [address] USAPotassium [Moles/Vol]3.9 mmol/LNormal3.5-5.1The [facility] Physician GroupComment on above:Performed By: #### HS TROP, CBC, CUBLD, MG, LACTIC, CMP ####[place] [address] USAProtein [Mass/Vol]6.7 g/dLNormal6.4-8.9The [facility] Physician GroupComment on above:Performed By: #### HS TROP, CBC, CUBLD, MG, LACTIC, CMP ####[place] [address] USASodium [Moles/Vol]135 mmol/WOip469-263Ubl [facility] Comment on above:Performed By: #### HS TROP, CBC, CUBLD, MG, LACTIC, CMP ####[place] [address] USAUrea nitrogen [Mass/Vol]33 mg/dLHigh7-25The [facility] Physician GroupComment on above:Performed By: #### HS TROP, CBC, CUBLD, MG, LACTIC, CMP ####[address] [address] USACreatinine [Mass/volume] in Serum or PlasmaOrdered By: Melvi Qureshi on 59-21-7943Pwvjdxmvpz [Mass/Vol]Creatinine [Mass/volume] in Serum or PlasmaHigh0.70-1.30[facility] Medical CenterDiff and CBCon 04-61-9465Qrltqnedqxdi Ql (Bld)Slight NormalThe [facility]ine [facility]'S Hospital Physician GroupComment on above:Order Comment: Performed By: #### DIFF CBC ####[place] [id number] USAErythrocyte distribution width (RBC) [Ratio]18.2 % High12.0-14.8The [facility] Physician GroupComment on above:Order Comment: Performed By: #### DIFF CBC ####[place] [id number] USAHematocrit (Bld) [Volume fraction]28.2 %Low38.8-50.0 The [facility] Physician GroupComment on above:Order Comment: Performed By: #### DIFF CBC ####[address] [address] USAHemoglobin (Bld) [Mass/Vol]9.0 g/dLLow13.0-17.0The [facility] Physician GroupComment on above:Order Comment: Performed By: #### DIFF CBC ####[address] [address] USAMCH (RBC) [Entitic mass]29.4 aoCehhgp19.5-35.2The [facility] Physician GroupComment on above:Order Comment: Performed By: #### DIFF CBC ####[place] [id number] USAMCV (RBC) [Entitic vol]91.9 fL Xhlhwu57.5-101The [facility] Physician GroupComment on above:Order Comment: Performed By: #### DIFF CBC ####[place] [id number] USAMean Corpuscular HGB Conc32.0 g/dLLow32.5-35.6The [facility] Physician GroupComment on above:Order Comment: Performed By: #### DIFF CBC ####[address] [address] USAMicrocytosisSlightNoCone Health Physician GroupComment on above:Order Comment: Performed By: #### DIFF CBC ####[place] [id number] USAMonocytes/100 WBC (Bld)29.58 %High0.00-20.00 [facility] Physician GroupComment on above:Order Comment: Result Comment: For adults in ED, MDW > 20.0 may be associated with a higher risk of sepsis during the first 12 hrs of hospital admission The predictive value of MDW for identifying sepsis in patients with hematological abnormalities has not been establishedPerformed By: #### DIFF CBC ####[address] [address] USAOvalocytesSlightNoCone Health Physician GroupComment on above:Order Comment: Performed By: #### DIFF CBC ####[address] [address] [place] Platelet EstimateNormalNormalNormMelbourne Regional Medical Center Physician GroupComment on above:Order Comment: Performed By: #### DIFF CBC ####[address] [address] USAPlatelet mean volume (Bld) [Entitic vol]7.3 fLNormal6.6-10.1The [facility] Physician GroupComment on above: Order Comment: Performed By: #### DIFF CBC ####[address] [address] USAPlatelet MorphologyNormalNormalNormal The [facility] Physician GroupComment on above:Order Comment: Result Comment: PERFORMED BY:[address] [place], [place] [phone] MEDICAL DIRECTORJAJA CATES M.D. Performed By: #### DIFF CBC ####[address] [address] USAPlatelets (Bld) [#/Vol]217 10*3/dUJipmcb615-250Vnc [facility] Physician GroupComment on above:Order Comment: 4PPerformed By: #### DIFF CBC ####[address] [address] USAPoikilocytosisSlightNoCone Health Physician GroupComment on above:Order Comment: 4PPerformed By: #### DIFF CBC ####[address] [address] USARBC (Bld) [#/Vol]3.07 10*6/uLLow 3.90-5.60The [facility] Physician GroupComment on above:Order Comment: 4 Performed By: #### DIFF CBC ####[address] [address] USAStomatocytesSlightNoCone Health Physician GroupComment on above:Order Comment: 4Performed By: #### DIFF CBC ####[address] [address] USAWBC (Bld) [#/Vol]21.3 10*3/uLHigh4.1-10.5The [facility] Physician GroupComment on above:Order Comment: Performed By: #### DIFF CBC ####[address] [address] USADipstick and Microscopicon 90-90-5765Tvupbukh,Urine1+HighNone SeenThe [facility]'S Hospital Physician GroupComment on above:Order Comment: Name Collection Type:: Chou CatheterResult Comment: PERFORMED BY:[address] [address] [place]ANToshaDaneAMEENA[place], [place] [phone] MEDICAL DIRECTORJAJA CATES M.D. Performed By: #### ADDONUAPLUS ####[place] [address] [place] [address] USABilirubin,UrineNormalNegativeHca [facility] Physician GroupComment on above:Order Comment: Name Collection Type:: Chou Catheter Result Comment: Unable to obtain accurate result due to color interference. Performed By: #### ADDONUAPLUS ####[address] [place] [address] USAGlucose Ql (U)NormalNormalThe [facility] Physician GroupComment on above:Order Comment: Name Collection Type:: Chou CatheterResult Comment: Unable to obtain accurate result due to color interference.Performed By: #### ADDONUAPLUS ####[address] [place] [address] USAKetones Ql (U)NormalNegativeH[facility] Physician GroupComment on above:Order Comment: Name Collection Type:: Chou CatheterResult Comment: Unable to obtain accurate result due to color interference.Performed By: #### ADDONUAPLUS ####[address] [place] [address] USALeukocyte esterase Test strip Ql (U)NormalNegative [facility] Physician GroupComment on above:Order Comment: Name Collection Type:: Chou CatheterResult Comment: Unable to obtain accurate result due to color interference.Performed By: #### ADDONUAPLUS ####[address] [place] [address] USANitrite,UrineNormalNegativeH[facility] Physician GroupComment on above:Order Comment: Name Collection Type:: Chou CatheterResult Comment: Unable to obtain accurate result due to color interference.Performed By: #### ADDONUAPLUS ####[address] [place] [address] USAOccult Blood,UrineNormalNegativeH[facility] Physician GroupComment on above:Order Comment: Name Collection Type:: Chou CatheterResult Comment: Unable to obtain accurate result due to color interference.Performed By: #### ADDONUAPLUS ####[address] [place] [address] USApH,UrineNormal5.0-9.0[facility] Physician GroupComment on above:Order Comment: Name Collection Type:: Chou CatheterResult Comment: Unable to obtain accurate result due to color interference.Performed By: #### ADDONUAPLUS ####[address] [place] [address] USAProtein,UrineNormalNegativeH[facility] Physician GroupComment on above:Order Comment: Name Collection Type:: Chou CatheterResult Comment: Unable to obtain accurate result due to color interference.Performed By: #### ADDONUAPLUS ####[address] [place] [address] USARBC,UrineInnumerableHigh0-4The [facility] Physician GroupComment on above:Order Comment: Name Collection Type:: Chou CatheterPerformed By: #### ADDONUAPLUS ####[address] [address] USASpecificy [place],Urine1.020Normal 1.001-1.030The [facility] Physician GroupComment on above:Order Comment: Name Collection Type:: Chou CatheterPerformed By: #### ADDONUAPLUS ####[address] [address] USASquamous Epithelial Cell,Lxgzm9-9Hldtir2-8Fdq [facility] Physician GroupComment on above:Order Comment: Name Collection Type:: Chou CatheterPerformed By: #### ADDONUAPLUS ####[address] [address] [place] Urobilinogen,UrineNormalNormalThe [facility] Physician GroupComment on above: Order Comment: Name Collection Type:: Chou CatheterResult Comment: Unable to obtain accurate result due to color interference.Performed By: #### ADDONUAPLUS ####[address] [address] [place] WBC,Eoueg41-86Pjne7-8Cfc [facility] Physician GroupComment on above:Order Comment: Name Collection Type:: Chou CatheterPerformed By: #### ADDONUAPLUS ####[address] [address] USAECG 12 lead ECGon 67-20-9653DDJ 12 lead ECGNormalThe [facility]ician Group Eosinophils Auto (Bld) [#/Vol]Ordered By: Melvi Qureshi on 84-09-6573Tjfnopddcpi (Bld) [#/Vol]Automated eosinophil count0.0-0.45[facility] Eosinophils/100 WBC Auto (Bld)Ordered By: Melvi Qureshi on 07-12-2024 Eosinophils/100 WBC (Bld)Automated eosinophil %.[facility] Medical CenterEosinophils/100 WBC Manual cnt (Bld)Ordered By: Mario Jordan on 07-12-2024 Eosinophils/100 WBC (Bld)Eosinophils/100 leukocytes in Blood by Manual count1- [facility] CenterEosinophils/100 leukocytes in Blood by Manual countOrdered By: Mario Jordan on 39-96-9082Rzjztsffbgi/100 WBC (Bld)1 %Normal1-3 [facility] Medical CenterComment on above:Order Comment: 4P/33Performed By: #### DIFF CBC ####[facility] [place] [address] [facility] HOSPITALEpithelial cells.squamous [#/area] in Urine sediment by Microscopy high power fieldOrdered By: Melvi Qureshi on 86-86-2267Jugfnlftfc cells.squamous LM.HPF (Urine sed) [#/Area]Epithelial cells.squamous [#/area] in Urine sediment by Microscopy high power field0-2FCleveland Clinic FoundationEpithelial cells.squamous LM.HPF (Urine sed) [#/Area]0-1 [HPF]0-2FCleveland Clinic FoundationErythrocyte distribution width Auto (RBC) [Ratio]Ordered By: Melvi Qureshi on 83-82-8176Lkyfdboyzmc distribution width (RBC) [Ratio]Erythrocyte distribution width [Ratio] by Automated mypobHkwy92.0-14.8[facility] Medical CenterErythrocytes [#/area] in Urine sediment by Microscopy high power fieldOrdered By: Melvi Qureshi on 04-78-1083JOB LM.HPF (Urine sed) [#/Area] Erythrocytes [#/area] in Urine sediment by Microscopy high power fieldHigh0-4 [facility] Medical CenterRB LM.HPF (Urine sed) [#/Area]Innumerable [HPF]High0-4FCleveland Clinic FoundationGlobulin Calc (S) [Mass/Vol]Ordered By: Melvi Qureshi on 05-78-2913Dnjntlxa (S) [Mass/Vol]Serum globulin measurement by calculation (mass/volume)[facility] CenterGlucose [Mass/volume] in Serum or PlasmaOrdered By: Melvi Qureshi on 06-77-1885Uathvym [Mass/Vol]Glucose [Mass/volume] in Serum or NfsnktMzc77-966AtoxcwyepUniversity Hospitals Ahuja Medical CenterGlucose [Mass/volume] in Urine by Test stripOrdered By: Melvi Qureshi on 65-94-0408Vftdkuc Test strip (U) [Mass/Vol]Glucose [Mass/volume] in Urine by Test stripNormalUniversity Hospitals Ahuja Medical CenterGlucose Test strip (U) [Mass/Vol]See commentNormCommunity Regional Medical CenterComment on above: Unable to obtain accurate result due to color interference.Hematocrit Auto (Bld) [Volume fraction]Ordered By: Melvi Qureshi on 47-28-4686Pxfucqriwn (Bld) [Volume fraction]Hematocrit [Volume Fraction] of Blood by Automated phblhIst88.8-50.0 [facility] Medical CenterHemoglobin Test strip Ql (U)Ordered By: Melvi Qureshi on 96-09-0094Nmxdqjwzor Ql (U)Hemoglobin [Presence] in Urine by Test strip NegativeUniversity Hospitals Ahuja Medical CenterHemoglobin Ql (U)See commentNegative [facility] Medical CenterComment on above:Unable to obtain accurate result due to color interference.Hemoglobin [Mass/volume] in BloodOrdered By: Melvi Qureshi on 82-14-8879Mnxiqqqrkt (Bld) [Mass/Vol]Hemoglobin [Mass/volume] in EqtqdVaq08.0-17.0[facility] Medical CenterKetones Test strip (U) [Mass/Vol]Ordered By: Melvi Qureshi on 99-15-2213Jfhabni (U) [Mass/Vol]Urine ketones measurement by test strip (mass/volume)NegativeUniversity Hospitals Ahuja Medical CenterKetones (U) [Mass/Vol]See commentNegativeUniversity Hospitals Ahuja Medical CenterComment on above:Unable to obtain accurate result due to color interference.Laboratory - Microbiology and Antimicrobial susceptibilityOrdered By: Melvi Qureshi on 87-10-8435Orqvwqvy identified Cx Nom (Bld)Enterococcus faecalisAbnoDayton Osteopathic HospitalBacteria identified Cx Nom (Bld)Pseudomonas aeruginosaAbnoDayton Osteopathic HospitalLactate [Moles/volume] in Serum or PlasmaOrdered By: Mario Jordan on 16-38-1807Bxtifyw [Moles/Vol]Lactate [Moles/volume] in Serum or PlasmaCritically high0.5-1.9 [facility] Medical CenterLactate [Moles/Vol]2.2 mmol/LCritically high 0.5-1.9[facility] Medical CenterComment on above:Critical Result : Called to and read back by: LEXIS DARNELL at: 07/13/2024 00:27:29 by:DHLactic Acid reference range has been updated to 0.5 1.9 mmol/L and the critical range of 2.0 or greater.Lactate [Moles/Vol]Lactate [Moles/volume] in Serum or Plasma Critically high0.5-1.9[facility]ja Medical CenterLactic Acidon 07-12-2024 Lactate [Moles/Vol]2.2 mmol/LOff scale high0.5-1.9The [facility] Comment on above:Order Comment: 4P/33Result Comment: Critical Result : Called to and read back by: ALTON HYMAN at: 07/12/2024 19:37:40 by:PAB Lactic Acid reference range has been updated to 0.5 ? 1.9 mmol/L and the critical range of 2.0 or greater.PERFORMED BY:[facility]111[facility] WEST CAMPUSDARCI [place], [place] [id number] MEDICAL DIRECTORJAJA WHITE M.D.Performed By: #### LACTIC ####[address] [place] [address] USALactate [Moles/Vol]2.3 mmol/LOff scale high 0.5-1.9The [facility] Physician GroupComment on above:Result Comment: Critical Result : Called to and read back by: DORA DARDEN at: 07/12/2024 16:01:14 by:PAB Lactic Acid reference range has been updated to 0.5 ? 1.9 mmol/L and the critical range of 2.0 or greater.PERFORMED BY:[place] [address] [address] GOLDSTEINDaneAMEENAALSEA, [place] [phone] MEDICAL DIRECTORJAJA CATES M.D.Performed By: #### HS TROP, CBC, CUBLD, MG, LACTIC, CMP ####[address] [address] USALactic Acid Reflexon 98-10-7581Ifwcwg Acid Reflex2.2 mmol/LOff scale high0.5-1.9The [facility] Physician GroupComment on above:Order Comment: CHANGE PER FRANCES PIRES KAHResult Comment: Critical Result : Called to and read back by: LEXIS DARNELL at: 07/13/2024 00:27:29 by:DH Lactic Acid reference range has been updated to 0.5 ? 1.9 mmol/L and the critical range of 2.0 orgreater.PERFORMED BY:[address] [address] [address] [place], [place] [phone] MEDICAL DIRECTORJAJA CATES M.D. Performed By: #### LACTIC RFX ####[address] [address]CFTYxxdyc Acid Reflex3.0 mmol/LOff scale high0.5-1.9The [facility] Physician GroupComment on above:Result Comment: Critical Result : Called to and read back by: KATE DUBON at: 07/12/2024 21:43:37 by:PAB Lactic Acid reference range has been updated to 0.5 ? 1.9 mmol/L and the critical range of 2.0 or greater.PERFORMED BY:[address] [address] [address] [place], [place] [phone] MEDICAL DIRECTORJAJA WHITE M.D.Performed By: #### LACTIC RFX ####[address] [address]ACQLncpmkdan esterase [Presence] in Urine by Test stripOrdered By: Melvi Qureshi on 08-52-2936Amgmclfpi esterase Test strip Ql (U)Leukocyte esterase [Presence] in Urine by Test stripNegativeUniversity Hospitals Ahuja Medical CenterLeukocyte esterase Test strip Ql (U)See commentNegative University Hospitals Ahuja Medical CenterComment on above:Unable to obtain accurate result due to color interference.Leukocytes [#/area] in Urine sediment by Microscopy high power fieldOrdered By: Melvi Qureshi on 01-27-1232CAI LM.HPF (Urine sed) [#/Area]Leukocytes [#/area] in Urine sediment by Microscopy high power fieldHigh0-4FCleveland Clinic FoundationWBC LM.HPF (Urine sed) [#/Area]10-19 [HPF]High075 Guerrero StreetLeukocytes [#/volume] corrected for nucleated erythrocytes in Blood by Automated counOrdered By: Melvi Qureshi on 51-02-8713WZZ corrected for nucl RBC Auto (Bld) [#/Vol]Leukocytes [#/volume] corrected for nucleated erythrocytes in Blood by Automated coun 4.1-10.5FCleveland Clinic FoundationLymphocytes Auto (Bld) [#/Vol]Ordered By: Melvi Qureshi on 96-52-2284Iahhnyfreyc (Bld) [#/Vol]Lymphocytes [#/volume] in Blood by Automated countLow1.00-4.8[facility] Lymphocytes/100 WBC Auto (Bld)Ordered By: Melvi Qureshi on 07-12-2024 Lymphocytes/100 WBC (Bld)Lymphocytes/100 leukocytes in Blood by Automated count. [facility] Ahuja Medical CenterLymphocytes/100 WBC Manual cnt (Bld)Ordered By: Mario Jordan on 84-13-8284Xizjfrkvtom/100 WBC (Bld)Lymphocytes/100 leukocytes in Blood by Manual pbrjmKcw14-41KladkmkrxUniversity Hospitals Ahuja Medical CenterLymphocytes/100 leukocytes in Blood by Manual countOrdered By: Mario Jordan on 07-12-2024 Lymphocytes/100 WBC (Bld)2 %Ezm03-69PsvojstbcUniversity Hospitals Ahuja Medical CenterComment on above:Order Comment: 4P/33Performed By: #### DIFF CBC ####[facility] [place] [address] [facility] Auto (RBC) [Entitic mass] Ordered By: Melvi Qureshi on 89-18-0552OXF (RBC) [Entitic mass]MCH [Entitic mass] by Automated count27.5-35.2FTrinity Health System East CampusHC Auto (RBC) [Mass/Vol]Ordered By: Melvi Qureshi on 63-78-1329WBIE (RBC) [Mass/Vol]MCHC [Mass/volume] by Automated count32.5-35.6FTrinity Health System East CampusV Auto (RBC) [Entitic vol]Ordered By: Melvi Qureshi on 13-92-6849HTO (RBC) [Entitic vol]MCV [Entitic volume] by Automated count83.5-101University Hospitals Ahuja Medical CenterMagnesiumon 85-44-7777Brixkxnqo [Mass/Vol]1.7 mg/dLLow1.9-2.7The [facility] Physician GroupComment on above:Result Comment: PERFORMED BY:[address] [place], [place] [phone] MEDICAL DIRECTORJAJA CATES M.D.Performed By: #### HS TROP, CBC, CUBLD, MG, LACTIC, CMP ####[facility] [place] [address] USAMagnesium [Mass/volume] in Serum or PlasmaOrdered By: Melvi Qureshi on 74-30-6563Upkobqkqh [Mass/Vol]Magnesium [Mass/volume] in Serum or PlasmaLow 1.9-2.7FCleveland Clinic FoundationMonocyte distribution width [Entitic volume] in Blood by AutomatedOrdered By: Melvi Qureshi on 98-37-3984Jtjrqyws distribution width Auto (Bld) [Entitic vol]Monocyte distribution width [Entitic volume] in Blood by AutomatedHigh0.00-20.00[facility] Monocyte distribution width [Entitic volume] in Blood by AutomatedOrdered By: Mario Jordan on 71-38-5705Lzdcibws distribution width Auto (Bld) [Entitic vol] 29.58 %High0.00-20.00[facility] Ahuja Medical CenterComment on above:For adults in ED, MDW > 20.0 may be associated with a higher risk of sepsis during the first 12 hrs of hospital admissionThe predictive value of MDW for identifying sepsis in patients with hematological abnormalities has not been establishedMonocytes Auto (Bld) [#/Vol]Ordered By: Melvi Qureshi on 07-12-2024 Monocytes (Bld) [#/Vol]Automated blood monocyte count0.0-0.8University Hospit[facility] Ahuja Medical CenterMonocytes/100 WBC Auto (Bld)Ordered By: Melvi Qureshi on 07-12-2024 Monocytes/100 WBC (Bld)Automated monocyte %.[facility] Monocytes/100 WBC Manual cnt (Bld)Ordered By: Mario Jordan on 07-12-2024 Monocytes/100 WBC (Bld)Monocytes/100 leukocytes in Blood by Manual countLow2 [facility]huja Medical CenterMonocytes/100 leukocytes in Blood by Manual countOrdered By: Mario Jordan on 22-54-5826Imddwoyqk/100 WBC (Bld)1 %Low2- [facility] Ahuja Medical CenterComment on above:Order Comment: 4P/33Performed By: #### DIFF CBC ####[facility] [address] [place] [address] USANatriuretic peptide B [Mass/Vol]Ordered By: Melvi Qureshi on 40-97-5600Yigihhgrkld peptide B (Bld) [Mass/Vol]BNP ser/plasHigh5-100University Hospitals Ahuja Medical CenterNeutrophils Auto (Bld) [#/Vol]Ordered By: Melvi Qureshi on 99-39-1714Yqffdhsqcfo (Bld) [#/Vol]Neutrophils [#/volume] in Blood by Automated count1.8-7.7FCleveland Clinic FoundationNeutrophils/100 WBC Auto (Bld) Ordered By: Melvi Qureshi on 37-48-2262Tibcdkmdhml/100 WBC (Bld)Automated neutrophil %.[facility] Ahuja Medical CenterNiite Test strip Ql (U)Ordered By: Melvi Qureshi on 61-49-4895Crkbaxh Ql (U)Nitrite [Presence] in Urine by Test stripNegativeUniversity Hospitals Ahuja Medical CenterNitrite Ql (U)See commentNegative [facility]huja Medical CenterComment on above:Unable to obtain accurate result due to color interference.No Panel InformationOrdered By: Melvi Qureshi on 08-48-6750Hqhewarpf ID (NA Multiplex Assay)[facility] AbnormalUniversity Hospitals Ahuja Medical CenterAbnormCommunity Regional Medical CenterEnterococcus faecalisAbnoDayton Osteopathic HospitalPseudomonas aeruginosaAbnoDayton Osteopathic Hospital42.119 mL/MinUniversity Hospitals Ahuja Medical Center38.97[facility]ja Medical CenterNucleated erythrocytes [Presence] in Blood by Automated countOrdered By: Melvi Qureshi on 47-38-7693Urlfgsoqe RBC Auto Ql (Bld)Nucleated erythrocytes [Presence] in Blood by Automated count0-0.5FCleveland Clinic FoundationPlatelet mean volume Auto (Bld) [Entitic vol]Ordered By: Melvi Qureshi on 98-93-4123Gnhvchxq mean volume (Bld) [Entitic vol]Platelet mean volume [Entitic volume] in Blood by Automated count6.6-10.1FCleveland Clinic FoundationPlatelets Auto (Bld) [#/Vol]Ordered By: Melvi Qureshi on 27-98-3535Sgvlzoxjy (Bld) [#/Vol]Platelets [#/volume] in Blood by Automated cyzfe439-414CeawkucfuUniversity Hospitals Ahuja Medical Center Potassium [Moles/volume] in Serum or PlasmaOrdered By: Melvi Qureshi on 07-12-2024 Potassium [Moles/Vol]Potassium [Moles/volume] in Serum or Plasma3.5-5.1FCleveland Clinic FoundationProtein Test strip (U) [Mass/Vol]Ordered By: Melvi Qureshi on 80-33-1403Kbopaxj (U) [Mass/Vol]Protein [Mass/volume] in Urine by Test strip NegativeUniversity Hospitals Ahuja Medical CenterProtein (U) [Mass/Vol]See comment NegativeUniversity Hospitals Ahuja Medical CenterComment on above:Unable to obtain accurate result due to color interference.Protein [Mass/volume] in Serum or PlasmaOrdered By: Melvi Qureshi on 75-20-9316Sktudxd [Mass/Vol]Protein [Mass/volume] in Serum or Plasma6.4-8.9[facility] Hospit[facility] Ahuja Medical CenterRBC Auto (Bld) [#/Vol]Ordered By: Melvi Qureshi on 82-29-6156INB (Bld) [#/Vol]Erythrocytes [#/volume] in Blood by Automated countLow3.90-5.60[facility]huja Medical CenterRespiratory specimen influenza A virus, influenza B virus, respiratory syncytical virOrdered By: Melvi Qureshi on 82-89-0517OLLR-CoV-2 (COVID-19) RNA SMITHA+probe Ql (Unsp spec)NormalUniversity Hospitals Ahuja Medical CenterComment on above: Performed By: #### COVID19 FLU RSV, CEPHEID NEG ####[facility] [address] [place] [address] USASegmented neutrophils/100 WBC Manual cnt (Bld)Ordered By: Mario Jordan on 64-95-7536Edhlskeim neutrophils/100 WBC (Bld)Manual blood segmented neutrophils/100 tnxiigqjhpJjfy07-61GgqkuotgaMartins Ferry Hospitalegmented neutrophils/100 leukocytes in Blood by Manual countOrdered By: Mario Jordan on 56-18-5149Pifoeihxd neutrophils/100 WBC (Bld)93 %Cira30-11IxulbhxtxUniversity Hospitals Ahuja Medical CenterComment on above:Order Comment: 4P/33 Performed By: #### DIFF CBC ####[facility] [address] [place] [address] USASerum or plasma albumin/globulin mass ratioOrdered By: Melvi Qureshi on 95-21-8121Dcndgkr/Globulin [Mass ratio]Serum or plasma albumin/globulin mass ratioMartins Ferry Hospitalerum or plasma anion gap determinationOrdered By: Melvi Qureshi on 27-91-5629Hveis gap [Moles/Vol]Serum or plasma anion gap determination6.0-15.0Martins Ferry Hospitalodium [Moles/volume] in Serum or PlasmaOrdered By: Melvi Qureshi on 75-02-1162Qorzhx [Moles/Vol]Sodium [Moles/volume] in Serum or GpjxhaPpm803-554 Martins Ferry Hospitalpecific gravity of Urine by Refractometry Ordered By: Melvi Qureshi on 28-32-6861Gtzhfwkx gravity Refractometry (U) [Rel density]Specific gravity of Urine by Refractometry1.001-1.030Martins Ferry Hospitalpecific gravity Refractometry (U) [Rel density]1.0201.001-1.030 [facility]ins Ferry Hospitaltomatocytes [Presence] in Blood by Light microscopyOrdered By: Mario Jordan on 38-00-2061Cozkwhrzgmiq LM Ql (Bld)Red blood cell stomatocyte detectionMartins Ferry Hospitaltomatocytes LM Ql (Bld)SlightUniversity Hospitals Ahuja Medical CenterTroponin I High Sensitivityon 94-91-0693Cxfqiltm I High Nmqrrbuudjj74Sfyw9-65Pbf [facility] Comment on above:Result Comment: The Troponin units of report have been changed to meet the Chest Pain Accreditationrequirement, element EC5.M1l2. Troponin units are changed from pg/ml to ng/L. Also, the decimal is removed and results are in whole numbers.PERFORMED BY:[address] [place], [place] [phone] MEDICAL DIRECTORJAJA WHITE M.D.Performed By: #### HS TROP, CBC, CUBLD, MG, LACTIC, CMP ####[address] [address] [facility] Troponin I.cardiac [Mass/volume] in Serum or Plasma by Detection limit <= 0.01 ng/Ordered By: Melvi Qureshi on 09-19-5571Pgkknxcz I.cardiac DL <= 0.01 ng/mL [Mass/Vol]Troponin I.cardiac [Mass/volume] in Serum or Plasma by Detection limit <= 0.01 ng/High0[facility] Ahuja Medical CenterTroponin I.cardiac [Mass/volume] in Serum or Plasma by Detection limit <= 0.01 ng/mLOrdered By: Melvi Qureshi on 53-82-8931Eflqmvtw I.cardiac DL <= 0.01 ng/mL [Mass/Vol]21 ng/L High0-[facility]huja Medical CenterComment on above:The Troponin units of report have been changed to meet the Chest Pain Accreditation requirement, jeremy ment EC5.M1l2. Troponin units are changed from pg/ml to ng/L. Also, the decimal is removed and results are in whole numbers.Urea nitrogen [Mass/volume] in Serum or PlasmaOrdered By: Melvi Qureshi on 40-58-5477Iezj nitrogen [Mass/Vol]Urea nitrogen [Mass/volume] in Serum or PlasmaHigh7-25[facility]ja Medical CenterUrine Cultureon 29-58-3571Nfpfivon identified Cx Nom (U)NormalThe [facility]S Hospital Physician GroupComment on above:Performed By: #### CUU ####[facility] [address] [place] [address] USAUrine appearance determinationOrdered By: Melvi Qureshi on 66-84-3379Lwtnapboen (U)Urine appearance AbnormalCleSt. John of God HospitalAppearance (U)TurbidCritically abnormalFisher-Titus Medical CenterComment on above:Order Comment: Name Collection Type:: Chou CatheterPerformed By: #### ADDONUAPLUS ####[facility] [address] [place] [address] USAUrine color determinationOrdered By: Melvi Qureshi on 12-01-1183Mnowv (U)Urine color AbnormalYellowUniversity Hospitals Ahuja Medical CenterColor (U)RedCritically abnormal YellowUniversity Hospitals Ahuja Medical CenterComment on above:Order Comment: Name Collection Type:: Chou CatheterPerformed By: #### ADDONUAPLUS ####[facility] [address] [place] [address] USAUrine cultureOrdered By: Rowena Jordan on 97-30-7087Mfgueesz identified Cx Nom (U)Pseudomonas aeruginosaAbKettering Health DaytonBacteria identified Cx Nom (U)Enterococcus faecalisAbKettering Health DaytonUrine culture AbnormalUniversity Hospitals Ahuja Medical CenterUrine cultureAbKettering Health DaytonUrobilinogen Test strip (U) [Mass/Vol]Ordered By: Melvi Qureshi on 91-79-8163Lynceotfumsy (U) [Mass/Vol]Urobilinogen [Mass/volume] in Urine by Test stripNoDayton Osteopathic HospitalUrobilinogen (U) [Mass/Vol]See commentNoDayton Osteopathic HospitalComment on above:Unable to obtain accurate result due to color interference.Urology Office/Clinic Noteon 23-46-4425Mriazto Office/Clinic NoteUrology Office/Clinic Note Chief Complaint Cysto [...] Prior Dr Good pt. Pt resides at [facility] for rehab. Pt/s daughter is with him today. 1. Urinary retention (R33.9: Retention of urine, unspecified) Pt underwent lumbar decompression w/ fusion 02/21/24. Discharged to [facility] for rehab. Subsequently admitted to [facility] 03/10/2024-03/15/2024 for LIS secondary to acute urinary [...] No recent stone imaging. 4. Anticoagulated (Z79.01: pan puller (current) use of anticoagulants) Eliquis for Afib. Elevated risk of periop complications 5. Hypospadias (Q54.9: Hypospadias, unspecified) See procedure section. (more content not included)...[facility] Cleveland Medical CenterComment on above:Result Comment: Electronically Signed By: Anup TIDWELL, Trisha Degroot\.br\Date and Time Signed: 07/12/24 09:19EDT\.br\Electronically Co-Signed By: Dulce Maria Brown\.br\Date and Time Co-Signed: 07/12/24 08:58 E DT\.br\Electronically Co-Signed By: Dulce Maria Brown P\.br\Date and Time Co- Signed: 07/12/24 09:02 EDT\.br\Electronically Co-Signed By: Dulce Maria Brown P\.br\Date and Time Co-Signed: 07/12/24 09:05 EDTWBC Auto (Bld) [#/Vol]Ordered By: Melvi Qureshi on 40-54-5323OOY (Bld) [#/Vol]Leukocytes [#/volume] in Blood by Automated count4.1-10.5FCleveland Clinic FoundationX-ray reportOrdered By: Ortega Groves on 31-26-3855Qseyg reportUniversity Hospitals Ahuja Medical CenterXR chest 1V portableon 51-88-2151WB chest 1V portableNoCone Health Physician GrouppH Test strip (U)Ordered By: Melvi Qureshi on 93-04-6082nQ (U)pH of Urine by Test strip5.0-9.0[facility]huja Medical CenterpH (U)See comment5.0-9.0 [facility]ja Medical CenterComment on above:Unable to obtain accurate result due to color interference.Provider Letteron 46-97-8029Wbuaflun Letter Randi Burris MD [address] [facility], [place] [address] Re: Tavo Jadynroel Date of Visit: 07/11/[address] Burris, Thank you for your referral to my office. Attached you will find the most recent office visit note.Please call if you have any questions or concerns. Sincerely, Tye Pompa MD [address] [facility], [address] [place] [address] The following document(s) were included in the letter: July 11, 2024 15:20:30 EDT - (07/11/2024) Telehealth Office Visit NoteNormal Samaritan HospitalBasophils Auto (Bld) [#/Vol]Ordered By: Sandip Bunting on 26-20-2539Dedjzkopk (Bld) [#/Vol]Automated basophil count0.0-0.2 [facility]huja Medical CenterBasophils [#/volume] in Blood by Automated countOrdered By: Sandip Bunting on 18-63-8329Kwlieukvx (Bld) [#/Vol]0.0 10*3/uL Normal0.0-0.2FCleveland Clinic FoundationComment on above:Performed By: #### CBC, ESR, CRP ####[facility] [address] [place] [address] USABasophils/100 WBC Auto (Bld)Ordered By: Sandip Bunting on 07-09-2024 Basophils/100 WBC (Bld)Automated basophil %.[facility] Basophils/100 leukocytes in Blood by Automated countOrdered By: Sandip Bunting on 58-92-6478Rzmcanvdk/100 WBC (Bld)0.1 %Normal.[facility]huja Medical CenterComment on above:Performed By: #### CBC, ESR, CRP ####[facility] [address] [place] [address] USAC reactive protein [Mass/volume] in Serum or PlasmaOrdered By: Sandip Bunting on 27-46-5013OTN [Mass/Vol]C reactive protein [Mass/volume] in Serum or PlasmaHigh0.0-0.5 [facility] Medical CenterCRP [Mass/Vol]2.4 mg/dLHigh0.0-0.5FCleveland Clinic FoundationC-Reactive Proteinon 30-93-0695Y-Reactive Protein2.4 mg/dLHigh0.0-0.5The [facility] Physician GroupComment on above:Result Comment: PERFORMED BY:[address] [place], [place] [phone] MEDICAL DIRECTORJAJA CATES M.D. Performed By: #### CBC, ESR, CRP ####[place] [id number] USAComplete Blood Count Auto Diffon 24-42-2635Txal Corpuscular HGB Conc32.5 g/fXWiszdl88.5-35.6The [facility] Physician [facility] HospitalComment on above:Performed By: #### CBC, ESR, CRP ####[place] [id number] USANRBC%0.0 /100{WBC}Normal0-0.5The [facility] Physician [facility] HospitalComment on above:Performed By: #### CBC, ESR, CRP ####[place] [address] [place] Eosinophils Auto (Bld) [#/Vol]Ordered By: Sandip Bunting on 07-09-2024 Eosinophils (Bld) [#/Vol]Automated eosinophil count0.0-0.45[facility]ja Medical CenterEosinophils [#/volume] in Blood by Automated countOrdered By: Sandip Bunting on 04-82-4367Ustwxldghbv (Bld) [#/Vol]0.0 10*3/uLNormal0.0-0.45 [facility] Medical CenterComment on above:Performed By: #### CBC, ESR, CRP ####[place] [address] [place] Eosinophils/100 WBC Auto (Bld)Ordered By: Sandip Bunting on 07-09-2024 Eosinophils/100 WBC (Bld)Automated eosinophil %.[facility] Ahuja Medical CenterEosinophils/100 leukocytes in Blood by Automated countOrdered By: Sandip Bunting on 31-69-3242Pntehxmcxqz/100 WBC (Bld)0.4 %Normal.[facility]huja Medical CenterComment on above:Performed By: #### CBC, ESR, CRP ####[address] [address] [facility]ITALErythrocyte Sedimentation Rateon 39-27-9775INM (Bld) [Velocity]52 mm/hHigh0-The [facility] Physician GroupComment on above:Result Comment: PERFORMED BY:[address] [place], [place] [phone] MEDICAL DIRECTORJAJA CATES M.D.Performed By: #### CBC, ESR, CRP ####[place] [id number] [facility] Erythrocyte distribution width Auto (RBC) [Ratio]Ordered By: Sandip Bunting on 17-27-5532Rlhdzyiljsc distribution width (RBC) [Ratio]Erythrocyte distribution width [Ratio] by Automated ezpbqXkos51.0-14.[address] [place] [address] Erythrocyte distribution width [Ratio] by Automated countOrdered By: Sandip Bunting on 50-20-4390Mfflkidsoax distribution width (RBC) [Ratio]17.6 %High 12.0-14.[address] [place], [place] [address]Comment on above:Performed By: #### CBC, ESR, CRP ####[place] [id number] USAErythrocyte sedimentation rate by Photometric methodOrdered By: Sandip Bunting on 76-21-5212YFG Photometric method (Bld) [Velocity]Erythrocyte sedimentation rate by Photometric methodUnited Hospital CenterSelect Medical Specialty Hospital - Columbus SouthR Photometric method (Bld) [Velocity]52 mm/hrUnited Hospital Center0-19[facility]huja Medical CenterErythrocytes [#/volume] in Blood by Automated countOrdered By: Sandip Bunting on 76-93-9842DDS (Bld) [#/Vol]3.01 10*6/uLLow3.90-5.60[facility] Medical CenterComment on above:Performed By: #### CBC, ESR, CRP ####[place] [place] [address] [place] Hematocrit Auto (Bld) [Volume fraction]Ordered By: Sandip Bunting on 07-09-2024 Hematocrit (Bld) [Volume fraction]Hematocrit [Volume Fraction] of Blood by Automated pvrxeKgy40.8-50.0[facility]huja Medical CenterHematocrit [Volume Fraction] of Blood by Automated countOrdered By: Sandip Bunting on 07-09-2024 Hematocrit (Bld) [Volume fraction]27.1 %Low38.8-50.0[facility]ja Medical CenterComment on above:Performed By: #### CBC, ESR, CRP ####[place] [address] [place] [id number] USAHemoglobin [Mass/volume] in BloodOrdered By: Sandip Bunting on 96-00-7874Edhkvolknc (Bld) [Mass/Vol] Hemoglobin [Mass/volume] in HnhjjRkh08.0-17.0[facility] Hemoglobin (Bld) [Mass/Vol]8.8 g/dLLow13.0-17.0[facility] Comment on above:Performed By: #### CBC, ESR, CRP ####[place] [id number] USALeukocytes [#/volume] corrected for nucleated erythrocytes in Blood by Automated counOrdered By: Sandip Bunting on 25-89-6477YIM corrected for nucl RBC Auto (Bld) [#/Vol]Leukocytes [#/volume] corrected for nucleated erythrocytes in Blood by Automated coun4.1-10.5FCleveland Clinic FoundationWBC corrected for nucl RBC Auto (Bld) [#/Vol]8.1 10*3/uL 4.1-10.5FCleveland Clinic FoundationLeukocytes [#/volume] in Blood by Automated countOrdered By: Sandip Bunting on 59-15-7565FCZ (Bld) [#/Vol]8.1 10*3/uLNormal4.1-10.5FCleveland Clinic FoundationComment on above:Performed By: #### CBC, ESR, CRP ####[address] [address] USALymphocytes Auto (Bld) [#/Vol]Ordered By: Sandip Bunting on 89-40-5824Gciyqpwxwbv (Bld) [#/Vol]Lymphocytes [#/volume] in Blood by Automated count1.00-4.8[facility]huja Medical CenterLymphocytes [#/volume] in Blood by Automated countOrdered By: Sandip Bunting on 47-39-2288Mdfsliwzyny (Bld) [#/Vol]1.0 10*3/uLNormal1.00-4.8[facility] Medical CenterComment on above:Performed By: #### CBC, ESR, CRP ####[place] [id number] USALymphocytes/100 WBC Auto (Bld)Ordered By: Sandip Bunting on 60-67-0031Ywlvoafjfqm/100 WBC (Bld)Lymphocytes/100 leukocytes in Blood by Automated count.[facility] Ahuja Medical CenterLymphocytes/100 leukocytes in Blood by Automated countOrdered By: Sandip Bunting on 07-09-2024 Lymphocytes/100 WBC (Bld)12.5 %Normal.[facility]huja Medical CenterComment on above:Performed By: #### CBC, ESR, CRP ####[place] [id number] [facility] Auto (RBC) [Entitic mass]Ordered By: Sandip Bunting on 83-55-9609RWV (RBC) [Entitic mass]MCH [Entitic mass] by Automated count27.5-35.2FRegency Hospital Company [Entitic mass] by Automated countOrdered By: Sandip Bunting on 14-41-1157JVW (RBC) [Entitic mass] 29.3 hmAkbnds08.5-35.2FCleveland Clinic FoundationComment on above: Performed By: #### CBC, ESR, CRP ####[place] [id number] USAMCHC Auto (RBC) [Mass/Vol]Ordered By: Sandip Bunting on 20-17-3792UEVY (RBC) [Mass/Vol]MCHC [Mass/volume] by Automated count 32.5-35.6FTrinity Health System East CampusHC (RBC) [Mass/Vol]32.5 g/dL 32.5-35.6FCleveland Clinic FoundationMCV Auto (RBC) [Entitic vol]Ordered By: Sandip Bunting on 91-31-2590FSD (RBC) [Entitic vol]MCV [Entitic volume] by Automated count83.-101[facility] CenterV [Entitic volume] by Automated countOrdered By: Sandip Bunting on 45-59-8024WQQ (RBC) [Entitic vol] 90.1 iABkymnw51.97 Wilson StreetComment on above:Performed By: #### CBC, ESR, CRP ####[place] [address] USAMonocytes Auto (Bld) [#/Vol]Ordered By: Sandip Bunting on 35-20-7878Nztyvonaq (Bld) [#/Vol]Automated blood monocyte count 0.0-0.8[facility] Medical CenterMonocytes [#/volume] in Blood by Automated countOrdered By: Sandip Bunting on 02-41-2092Oqfbvwzjx (Bld) [#/Vol] 0.6 10*3/uLNormal0.0-0.8[facility]huja Medical CenterComment on above: Performed By: #### CBC, ESR, CRP ####[place] [id number] USAMonocytes/100 WBC Auto (Bld)Ordered By: Sandip Bunting on 99-32-6067Skipsyzru/100 WBC (Bld)Automated monocyte %.[facility] CenterMonocytes/100 leukocytes in Blood by Automated count Ordered By: Sandip Bunting on 26-14-8667Lgdttsidb/100 WBC (Bld)7.3 %Normal. [facility]ja Medical CenterComment on above:Performed By: #### CBC, ESR, CRP ####[place] [address] [place] Neutrophils Auto (Bld) [#/Vol]Ordered By: Sandip Bunting on 07-09-2024 Neutrophils (Bld) [#/Vol]Neutrophils [#/volume] in Blood by Automated count 1.8-7.7FCleveland Clinic FoundationNeutrophils [#/volume] in Blood by Automated countOrdered By: Sandip Bunting on 27-57-2200Ocvxaplqczu (Bld) [#/Vol] 6.4 10*3/uLNormal1.8-7.7FCleveland Clinic FoundationComment on above: Performed By: #### CBC, ESR, CRP ####[facility] [address] [place] [address] USANeutrophils/100 WBC Auto (Bld)Ordered By: Sandip Bunting on 49-15-5247Hkitkfuetrz/100 WBC (Bld)Automated neutrophil %.[facility] Medical CenterNeutrophils/100 leukocytes in Blood by Automated count Ordered By: Sandip Bunting on 93-44-0571Zjcmtdzgfvx/100 WBC (Bld)79.7 %Normal. [facility]huja Medical CenterComment on above:Performed By: #### CBC, ESR, CRP ####[facility] [address] [place] [address] Nucleated erythrocytes [Presence] in Blood by Automated countOrdered By: Sandip Bunting on 65-89-0947Uetycewiw RBC Auto Ql (Bld)Nucleated erythrocytes [Presence] in Blood by Automated count0-0.5FC[facility] Nucleated RBC Auto Ql (Bld)0.0 /100{WBC}0-0.5[facility] Platelet mean volume Auto (Bld) [Entitic vol]Ordered By: Sandip Bunting on 73-72-7798Ldipnruq mean volume (Bld) [Entitic vol]Platelet mean volume [Entitic volume] in Blood by Automated count6.6-10.1FC[facility] Foundation Platelet mean volume [Entitic volume] in Blood by Automated countOrdered By: Sandip Bunting on 37-54-4290Hfzwefgx mean volume (Bld) [Entitic vol]7.8 fLNormal 6.6-10.1FCleveland Clinic FoundationComment on above:Performed By: #### CBC, ESR, CRP ####[facility] [address] [place] [address] USAPlatelets Auto (Bld) [#/Vol]Ordered By: Sandip Bunting on 07-09-2024 Platelets (Bld) [#/Vol]Platelets [#/volume] in Blood by Automated lqmto075-798 [facility]ja Medical CenterPlatelets [#/volume] in Blood by Automated countOrdered By: Sandip Bunting on 71-10-2359Bumgqsxhl (Bld) [#/Vol]234 10*3/uL Ucampv851-238QznmbijzmUniversity Hospitals Ahuja Medical CenterComment on above:Performed By: #### CBC, ESR, CRP ####[facility] [place] [address] USARBC Auto (Bld) [#/Vol]Ordered By: Sandip Bunting on 78-71-8468UYE (Bld) [#/Vol]Erythrocytes [#/volume] in Blood by Automated countLow3.90-5.60 [facility] Medical CenterWBC Auto (Bld) [#/Vol]Ordered By: Sandip Bunting on 08-28-3492HHM (Bld) [#/Vol]Leukocytes [#/volume] in Blood by Automated count4.1-10.5FCleveland Clinic FoundationBasophils Auto (Bld) [#/Vol]Ordered By: Sandip Bunting on 76-73-5264Gdmabfcgi (Bld) [#/Vol]Automated basophil count0.0-0.2FCleveland Clinic FoundationBasophils [#/volume] in Blood by Automated countOrdered By: Sandip Bunting on 01-89-5890Vuoognfft (Bld) [#/Vol]0.1 10*3/uLNormal0.0-0.2FCleveland Clinic FoundationCompine rest christian mental health services on above:Performed By: #### CBC, ESR, CRP ####[facility] [place] [address] USABasophils/100 WBC Auto (Bld)Ordered By: Sandip Bunting on 85-84-1555Dpmhqtkns/100 WBC (Bld)Automated basophil %.[facility] Medical CenterBasophils/100 leukocytes in Blood by Automated count Ordered By: Sandip Aguirre on 58-79-8428Sbefazvhq/100 WBC (Bld)1.3 %Normal. [facility]huja Medical CenterComment on above:Performed By: #### CBC, ESR, CRP ####[address] [address] USAC reactive protein [Mass/volume] in Serum or PlasmaOrdered By: Sandip Aguirre on 35-26-7012NHR [Mass/Vol]C reactive protein [Mass/volume] in Serum or PlasmaHigh 0.0-0.5FCleveland Clinic FoundationCRP [Mass/Vol]8.0 mg/dLHigh0.0-0.5 [facility] CenterC-Reactive Proteinon 31-51-9930D-Reactive Protein8.0 mg/dLHigh0.0-0.5The [facility] Physician GroupComment on above:Result Comment: PERFORMED BY:[address] [place], [place] [phone] MEDICAL DIRECTORJAJA CATES M.D. Performed By: #### CBC, ESR, CRP ####[address] [address] USAComplete Blood Count Auto Diffon 66-64-4271Xvcm Corpuscular HGB Conc32.9 g/oJPkyrrc67.5-35.6The [facility] Hospital Physician GroupComment on above:Performed By: #### CBC, ESR, CRP ####[address] [address] USANRBC%0.0 /100{WBC}Normal0-0.5The [facility] Physician GroupComment on above:Performed By: #### CBC, ESR, CRP ####[address] [address] [place] Eosinophils Auto (Bld) [#/Vol]Ordered By: Sandip Aguirre on 07-02-2024 Eosinophils (Bld) [#/Vol]Automated eosinophil count0.0-0.45FirAvita Health SystemEosinophils [#/volume] in Blood by Automated countOrdered By: Sandip Bunting on 89-14-9546Ocgmapbkyim (Bld) [#/Vol]0.4 10*3/uLNormal0.0-0.45 [facility] Medical CenterComment on above:Performed By: #### CBC, ESR, CRP ####[place] [address] [facility] Eosinophils/100 WBC Auto (Bld)Ordered By: Sandip Bunting on 07-02-2024 Eosinophils/100 WBC (Bld)Automated eosinophil %.[facility] Medical CenterEosinophils/100 leukocytes in Blood by Automated countOrdered By: Sandip Bunting on 15-60-8051Kkyzfkxoxif/100 WBC (Bld)6.4 %Normal.[facility]huja Medical CenterComment on above:Performed By: #### CBC, ESR, CRP ####[place] [address] [facility]OS[facility]ITALErythrocyte Sedimentation Rateon 58-92-3695RZJ (Bld) [Velocity]95 mm/hHigh0-19The [facility] Physician GroupComment on above:Result Comment: PERFORMED BY:[address] [place], [place] [phone] MEDICAL DIRECTORMOKAIT CATES M.D.Performed By: #### CBC, ESR, CRP ####[place] [address] [facility] Erythrocyte distribution width Auto (RBC) [Ratio]Ordered By: Sandip Bunting on 47-43-0159Sriyplyrbcd distribution width (RBC) [Ratio]Erythrocyte distribution width [Ratio] by Automated bmgvdCblo30.0-14.8[facility] Erythrocyte distribution width [Ratio] by Automated countOrdered By: Sandip Bunting on 88-19-3083Tofpzbdkbst distribution width (RBC) [Ratio]17.1 %High 12.0-14.8[facility]huja Medical CenterComment on above:Performed By: #### CBC, ESR, CRP ####[place] [address] USAErythrocyte sedimentation rate by Photometric methodOrdered By: Sandip Aguirre on 76-37-8581AKV Photometric method (Bld) [Velocity]Erythrocyte sedimentation rate by Photometric method13 Thornton StreetESR Photometric method (Bld) [Velocity]95 mm/hr13 [address] StreetErythrocytes [#/volume] in Blood by Automated countOrdered By: Sandip Bunting on 02-81-0918GEW (Bld) [#/Vol]2.89 10*6/uLLow3.90-5.60[facility]huja Medical CenterComment on above:Performed By: #### CBC, ESR, CRP ####[facility] [address] [place] [address] [place] Hematocrit Auto (Bld) [Volume fraction]Ordered By: Sandip Bunting on 07-02-2024 Hematocrit (Bld) [Volume fraction]Hematocrit [Volume Fraction] of Blood by Automated acgbrAia16.8-50.0[facility]huja Medical CenterHematocrit [Volume Fraction] of Blood by Automated countOrdered By: Sandip Aguirre on 07-02-2024 Hematocrit (Bld) [Volume fraction]25.7 %Low38.8-50.0[facility]ja Medical CenterComment on above:Performed By: #### CBC, ESR, CRP ####[place] [address] USAHemoglobin [Mass/volume] in BloodOrdered By: Sandip Aguirre on 84-99-8764Raeonpmcdb (Bld) [Mass/Vol] Hemoglobin [Mass/volume] in JkimjLhe68.0-17.0[facility] Hemoglobin (Bld) [Mass/Vol]8.5 g/dLLow13.0-17.0[facility] Comment on above:Performed By: #### CBC, ESR, CRP ####[place] [address] USALeukocytes [#/volume] corrected for nucleated erythrocytes in Blood by Automated counOrdered By: Sandip Aguirre on 30-31-2776FEQ corrected for nucl RBC Auto (Bld) [#/Vol]Leukocytes [#/volume] corrected for nucleated erythrocytes in Blood by Automated coun4.1-10.5FCleveland Clinic FoundationWBC corrected for nucl RBC Auto (Bld) [#/Vol]6.7 10*3/uL 4.1-10.5FCleveland Clinic FoundationLeukocytes [#/volume] in Blood by Automated countOrdered By: Sandip Bunting on 21-29-2028KYD (Bld) [#/Vol]6.7 10*3/uLNormal4.1-10.5FCleveland Clinic FoundationComment on above:Performed By: #### CBC, ESR, CRP ####[facility] [address] [place] [address] USALymphocytes Auto (Bld) [#/Vol]Ordered By: Sandip Aguirre on 26-27-8991Gsbtdsxkuse (Bld) [#/Vol]Lymphocytes [#/volume] in Blood by Automated count1.00-4.8[facility]huja Medical CenterLymphocytes [#/volume] in Blood by Automated countOrdered By: Sandip Bunting on 67-71-3610Acgruzwdzhp (Bld) [#/Vol]1.4 10*3/uLNormal1.00-4.8[facility]ja Medical CenterComment on above:Performed By: #### CBC, ESR, CRP ####[place] [address] [place] [address] USALymphocytes/100 WBC Auto (Bld)Ordered By: Sandip Aguirre on 05-16-9229Fhjmjwagkxv/100 WBC (Bld)Lymphocytes/100 leukocytes in Blood by Automated count.[facility] Ahuja Medical CenterLymphocytes/100 leukocytes in Blood by Automated countOrdered By: Sandip Bunsantiago on 07-02-2024 Lymphocytes/100 WBC (Bld)21.2 %Normal.[facility]huja Medical CenterComment on above:Performed By: #### CBC, ESR, CRP ####[place] [address] [place] [address] [facility] Auto (RBC) [Entitic mass]Ordered By: Sandip Bunting on 22-79-3358ZQG (RBC) [Entitic mass]MCH [Entitic mass] by Automated count27.5-35.2FRegency Hospital Company [Entitic mass] by Automated countOrdered By: Sandip Bunting on 67-31-6703RDK (RBC) [Entitic mass] 29.2 caVpjesj60.5-35.2FCleveland Clinic FoundationComment on above: Performed By: #### CBC, ESR, CRP ####[facility] [address] [place] [id number] [facility] CITYHC Auto (RBC) [Mass/Vol]Ordered By: Sandip Bunting on 69-56-6283XAPC (RBC) [Mass/Vol]MCHC [Mass/volume] by Automated count 32.5-35.6FTrinity Health System East CampusHC (RBC) [Mass/Vol]32.9 g/dL 32.5-35.6FTrinity Health System East CampusV Auto (RBC) [Entitic vol]Ordered By: Sandip Bunting on 34-14-6344UKR (RBC) [Entitic vol]MCV [Entitic volume] by Automated count83.5-101[facility] CenterV [Entitic volume] by Automated countOrdered By: Sandip Bunting on 14-79-2359FVT (RBC) [Entitic vol] 88.9 yRSlingp21.5-101[facility] Medical CenterComment on above:Performed By: #### CBC, ESR, CRP ####[place] [id number] USAMonocytes Auto (Bld) [#/Vol]Ordered By: Sandip Bunting on 00-26-8444Czusuzfbw (Bld) [#/Vol]Automated blood monocyte count 0.0-0.8[facility] Medical CenterMonocytes [#/volume] in Blood by Automated countOrdered By: Sandip Bunting on 65-10-7590Emgyhqjqt (Bld) [#/Vol] 0.3 10*3/uLNormal0.0-0.8[facility] Medical CenterComment on above: Performed By: #### CBC, ESR, CRP ####[facility] [address] [place] [address] USAMonocytes/100 WBC Auto (Bld)Ordered By: Sandip Bunting on 05-57-9356Nxtiqrjwe/100 WBC (Bld)Automated monocyte %.[facility] Medical CenterMonocytes/100 leukocytes in Blood by Automated count Ordered By: Sandip Bunting on 40-55-3505Krykrmfom/100 WBC (Bld)4.8 %Normal. [facility]ja Medical CenterComment on above:Performed By: #### CBC, ESR, CRP ####[facility] [address] [place] [id number] [facility] Neutrophils Auto (Bld) [#/Vol]Ordered By: Sandip Bunting on 07-02-2024 Neutrophils (Bld) [#/Vol]Neutrophils [#/volume] in Blood by Automated count 1.8-7.7FCleveland Clinic FoundationNeutrophils [#/volume] in Blood by Automated countOrdered By: Sandip Bunting on 00-10-6950Gwtogssfeuc (Bld) [#/Vol] 4.4 10*3/uLNormal1.8-7.7FCleveland Clinic FoundationComment on above: Performed By: #### CBC, ESR, CRP ####[facility] [address] [place] [address] USANeutrophils/100 WBC Auto (Bld)Ordered By: Sandip Bunting on 75-90-5784Yrutuchsyos/100 WBC (Bld)Automated neutrophil %.[facility] Medical CenterNeutrophils/100 leukocytes in Blood by Automated count Ordered By: Sandip Bunting on 36-29-9882Xrjzoferkbt/100 WBC (Bld)66.3 %Normal. [facility]ja Medical CenterComment on above:Performed By: #### CBC, ESR, CRP ####[facility] [address] [place], [place] [address] [facility] Nucleated erythrocytes [Presence] in Blood by Automated countOrdered By: Sandip Bunting on 74-39-3142Lfhoknohx RBC Auto Ql (Bld)Nucleated erythrocytes [Presence] in Blood by Automated count0-0.5FC[facility] Nucleated RBC Auto Ql (Bld)0.0 /100{WBC}0-0.5[facility] Platelet mean volume Auto (Bld) [Entitic vol]Ordered By: Sandip Bunting on 15-33-2450Zypbjyqf mean volume (Bld) [Entitic vol]Platelet mean volume [Entitic volume] in Blood by Automated count6.6-10.1FC[facility] Platelet mean volume [Entitic volume] in Blood by Automated countOrdered By: Sandip Bunting on 31-23-5674Wzkefykh mean volume (Bld) [Entitic vol]7.7 fLNormal 6.6-10.1FCleveland Clinic FoundationComment on above:Performed By: #### CBC, ESR, CRP ####[facility] [address] [place] [address] USAPlatelets Auto (Bld) [#/Vol]Ordered By: Sandip Bunting on 07-02-2024 Platelets (Bld) [#/Vol]Platelets [#/volume] in Blood by Automated -823 [facility] Medical CenterPlatelets [#/volume] in Blood by Automated countOrdered By: Sandip Bunting on 43-68-2696Guaqgflwr (Bld) [#/Vol]180 10*3/uL Rsjlzq504-042FzjaapegrUniversity Hospitals Ahuja Medical CenterComment on above:Performed By: #### CBC, ESR, CRP ####[facility] [address] [place] [address] USARBC Auto (Bld) [#/Vol]Ordered By: Sandip Bunting on 83-88-6622XOY (Bld) [#/Vol]Erythrocytes [#/volume] in Blood by Automated countLow3.90-5.60 [facility] Medical CenterWBC Auto (Bld) [#/Vol]Ordered By: Sandip Bunting on 62-30-1404FEW (Bld) [#/Vol]Leukocytes [#/volume] in Blood by Automated count4.1-10.5FCleveland Clinic FoundationProvider Letteron 58-33-5789Tsyfcxzo Letter Tavo Mcintyre, [address], [address] [place] [address] Re: Tavo Slaterulett Date of Visit: 06/26/[address] Mcintyre, Thank you for your referral to my office. Attached you will find the most recent office visit note.Please call if you have any questions or concerns. Sincerely, Tye Pompa MD [address] [facility], [address] [place] [address] The following document(s) were included in the letter: June 26, 2024 15:49:54 EDT - (06/26/2024) Telehealth Office Visit NoteNormal [facility] HospitalBasophils Auto (Bld) [#/Vol]Ordered By: Sandip Bunting on 64-01-2068Inyiyqoqr (Bld) [#/Vol]Automated basophil count0.0-0.2 [facility]ja Medical CenterBasophils [#/volume] in Blood by Automated countOrdered By: Sandip Bunting on 53-59-6367Wbmcdfyge (Bld) [#/Vol]0.1 10*3/uL Normal0.0-0.2FCleveland Clinic FoundationComment on above:Performed By: #### ESR, CBC, CRP ####[facility] [address] [place] [address] USABasophils/100 WBC Auto (Bld)Ordered By: Sandip Mirzating on 06-25-2024 Basophils/100 WBC (Bld)Automated basophil %.[facility] Basophils/100 leukocytes in Blood by Automated countOrdered By: Sandip Bunting on 11-45-5733Auptfkbza/100 WBC (Bld)0.9 %Normal.[facility]huja Medical CenterComment on above:Performed By: #### ESR, CBC, CRP ####[facility] Dgb[address] [place] [address] USAC reactive protein [Mass/volume] in Serum or PlasmaOrdered By: Sandip Bunting on 88-44-1947YRZ [Mass/Vol]C reactive protein [Mass/volume] in Serum or PlasmaHigh0.0-0.5 [facility] Medical CenterCRP [Mass/Vol]6.5 mg/dLHigh0.0-0.5FCleveland Clinic FoundationC-Reactive Proteinon 48-03-7561W-Reactive Protein6.5 mg/dLHigh0.0-0.5The [facility] Physician GroupComment on above:Result Comment: PERFORMED BY:[address] [place], [place] [phone] MEDICAL DIRECTORJAJA CATES M.D. Performed By: #### ESR, CBC, CRP ####[address] [address] USAComplete Blood Count Auto Diffon 14-15-7125Pmbw Corpuscular HGB Conc33.3 g/tHOtdmbq50.5-35.6[facility] Physician [facility] HospitalComment on above:Performed By: #### ESR, CBC, CRP ####[address] [address] USANRBC%0.1 /100{WBC}Normal0-0.5[facility] Physician [facility] HospitalComment on above:Performed By: #### ESR, CBC, CRP ####[address] [address] [place] Eosinophils Auto (Bld) [#/Vol]Ordered By: Sandip Bunting on 06-25-2024 Eosinophils (Bld) [#/Vol]Automated eosinophil count0.0-0.45[facility]ja Medical CenterEosinophils [#/volume] in Blood by Automated countOrdered By: Sandip Bunting on 64-07-5291Lxyktjmjied (Bld) [#/Vol]0.3 10*3/uLNormal0.0-0.45 [facility]ja Medical CenterComment on above:Performed By: #### ESR, CBC, CRP ####[place] [address] [place] Eosinophils/100 WBC Auto (Bld)Ordered By: Sandip Bunting on 06-25-2024 Eosinophils/100 WBC (Bld)Automated eosinophil %.[facility] Medical CenterEosinophils/100 leukocytes in Blood by Automated countOrdered By: Sandip Bunting on 81-37-9610Xojpjdhkgrc/100 WBC (Bld)4.4 %Normal.[facility]huja Medical CenterComment on above:Performed By: #### ESR, CBC, CRP ####[place] [address] [place] [address] USAErythrocyte Sedimentation Rateon 34-07-0860ZPB (Bld) [Velocity]79 mm/hHigh0-19[facility] Physician GroupComment on above:Result Comment: PERFORMED BY:[address] [place], [place] [phone] MEDICAL DIRECTORJAJA CATES M.D.Performed By: #### ESR, CBC, CRP ####[place] [address] [place] [id number] [facility] Erythrocyte distribution width Auto (RBC) [Ratio]Ordered By: Sandip Bunting on 44-09-6867Usvefwrfcvk distribution width (RBC) [Ratio]Erythrocyte distribution width [Ratio] by Automated nfkwtYqhc63.0-14.8[facility] Erythrocyte distribution width [Ratio] by Automated countOrdered By: Sandip Bunting on 78-86-8669Ukhozihnmkf distribution width (RBC) [Ratio]16.7 %High 12.0-14.[address] [place], [place] [address]Comment on above:Performed By: #### ESR, CBC, CRP ####[place] [id number] USAErythrocyte sedimentation rate by Photometric methodOrdered By: Sandip Bunting on 18-22-0809TXO Photometric method (Bld) [Velocity]Erythrocyte sedimentation rate by Photometric methodHigh0-19[facility]ja Medical CenterESR Photometric method (Bld) [Velocity]79 mm/hrUnited Hospital Center0-19[facility] Medical CenterErythrocytes [#/volume] in Blood by Automated countOrdered By: Sandip Bunting on 47-77-4725ARU (Bld) [#/Vol]2.81 10*6/uLLow3.90-5.60[facility]ja Medical CenterComment on above:Performed By: #### ESR, CBC, CRP ####[address] [place] [address] [place] Hematocrit Auto (Bld) [Volume fraction]Ordered By: Sandip Bunting on 06-25-2024 Hematocrit (Bld) [Volume fraction]Hematocrit [Volume Fraction] of Blood by Automated hbtluHtb58.8-50.0[facility]huja Medical CenterHematocrit [Volume Fraction] of Blood by Automated countOrdered By: Sandip Bunting on 06-25-2024 Hematocrit (Bld) [Volume fraction]24.4 %Low38.8-50.0[facility]ja Medical CenterComment on above:Performed By: #### ESR, CBC, CRP ####[place] [id number] USAHemoglobin [Mass/volume] in BloodOrdered By: Sandip Bunting on 53-17-6772Onglyzhxnj (Bld) [Mass/Vol] Hemoglobin [Mass/volume] in EhrabYry09.0-17.0[facility] Hemoglobin (Bld) [Mass/Vol]8.1 g/dLLow13.0-17.0[facility] Comment on above:Performed By: #### ESR, CBC, CRP ####[place] [id number] USALeukocytes [#/volume] corrected for nucleated erythrocytes in Blood by Automated counOrdered By: Sandip Bunting on 77-02-9312OCK corrected for nucl RBC Auto (Bld) [#/Vol]Leukocytes [#/volume] corrected for nucleated erythrocytes in Blood by Automated coun4.1-10.5FCleveland Clinic FoundationWBC corrected for nucl RBC Auto (Bld) [#/Vol]8.0 10*3/uL 4.1-10.5FCleveland Clinic FoundationLeukocytes [#/volume] in Blood by Automated countOrdered By: Sandip Bunting on 34-70-0658LJB (Bld) [#/Vol]8.0 10*3/uLNormal4.1-10.5FCleveland Clinic FoundationComment on above:Performed By: #### ESR, CBC, CRP ####[place] [address] USALymphocytes Auto (Bld) [#/Vol]Ordered By: Sandip Bunting on 38-58-5950Mhtzgfopthf (Bld) [#/Vol]Lymphocytes [#/volume] in Blood by Automated count1.00-4.8[facility]huja Medical CenterLymphocytes [#/volume] in Blood by Automated countOrdered By: Sandip Bunting on 39-76-6843Oddpzldfnrc (Bld) [#/Vol]1.4 10*3/uLNormal1.00-4.8[facility]ja Medical CenterComment on above:Performed By: #### ESR, CBC, CRP ####[facility] [address] [place], [place] [address] USALymphocytes/100 WBC Auto (Bld)Ordered By: Sandip Bunting on 74-31-6590Dszhhjstmgc/100 WBC (Bld)Lymphocytes/100 leukocytes in Blood by Automated count.[facility]huja Medical CenterLymphocytes/100 leukocytes in Blood by Automated countOrdered By: Sandip Bunting on 06-25-2024 Lymphocytes/100 WBC (Bld)17.6 %Normal.[facility]huja Medical CenterComment on above:Performed By: #### ESR, CBC, CRP ####[facility] [address] [place], [place] [address] [facility] Auto (RBC) [Entitic mass]Ordered By: Sandip Bunting on 87-70-7684XNH (RBC) [Entitic mass]MCH [Entitic mass] by Automated count27.5-35.2FRegency Hospital Company [Entitic mass] by Automated countOrdered By: Sandip Bunting on 48-94-4794NHP (RBC) [Entitic mass] 29.0 wdPhihlj76.5-35.2FCleveland Clinic FoundationComment on above: Performed By: #### ESR, CBC, CRP ####[place] [id number] [facility] Auto (RBC) [Mass/Vol]Ordered By: Sandip Bunting on 52-34-4947NYEJ (RBC) [Mass/Vol]MCHC [Mass/volume] by Automated count 32.5-35.6FCleveland Clinic FoundationMCHC (RBC) [Mass/Vol]33.3 g/dL 32.5-35.6FCleveland Clinic FoundationMCV Auto (RBC) [Entitic vol]Ordered By: Sandip Bunting on 23-65-7989AMR (RBC) [Entitic vol]MCV [Entitic volume] by Automated count83.5-101[facility]ja Medical CenterMCV [Entitic volume] by Automated countOrdered By: Sandip Bunting on 13-66-5526HAI (RBC) [Entitic vol] 87.1 aYFzqxfq58.5-101[facility]ja Medical CenterComment on above:Performed By: #### ESR, CBC, CRP ####[facility] [address] [place] [id number] USAMonocytes Auto (Bld) [#/Vol]Ordered By: Sandip Bunting on 09-89-9113Hycpdaysm (Bld) [#/Vol]Automated blood monocyte count 0.0-0.8[facility]ja Medical CenterMonocytes [#/volume] in Blood by Automated countOrdered By: Sandip Bunting on 39-53-5697Lcwpmecxf (Bld) [#/Vol] 0.6 10*3/uLNormal0.0-0.8[facility]ja Medical CenterComment on above: Performed By: #### ESR, CBC, CRP ####[facility] [address] [place], [place] [address] USAMonocytes/100 WBC Auto (Bld)Ordered By: Sandip Bunting on 92-87-8830Uswcfinld/100 WBC (Bld)Automated monocyte %.[facility] CenterMonocytes/100 leukocytes in Blood by Automated count Ordered By: Sandip Bunting on 21-31-7608Kejdpizmy/100 WBC (Bld)7.7 %Normal. [facility]ja Medical CenterComment on above:Performed By: #### ESR, CBC, CRP ####[address] [address] [place] Neutrophils Auto (Bld) [#/Vol]Ordered By: Sandip Bunting on 06-25-2024 Neutrophils (Bld) [#/Vol]Neutrophils [#/volume] in Blood by Automated count 1.8-7.7FCleveland Clinic FoundationNeutrophils [#/volume] in Blood by Automated countOrdered By: Sandip Bunsantiago on 58-74-6469Ifhmvmkstmn (Bld) [#/Vol] 5.5 10*3/uLNormal1.8-7.7FCleveland Clinic FoundationComment on above: Performed By: #### ESR, CBC, CRP ####[facility] [address] [id number] USANeutrophils/100 WBC Auto (Bld)Ordered By: Sandip Aguirre on 59-32-0415Qadrqcxyytk/100 WBC (Bld)Automated neutrophil %.[facility] CenterNeutrophils/100 leukocytes in Blood by Automated count Ordered By: Sandip Aguirre on 44-45-2246Ndzdvqgjdha/100 WBC (Bld)69.4 %Normal. [facility]ja Medical CenterComment on above:Performed By: #### ESR, CBC, CRP ####[facility] [address] [id number] [facility] Nucleated erythrocytes [Presence] in Blood by Automated countOrdered By: Sandip Aguirre on 52-51-1646Ptjyxsjsp RBC Auto Ql (Bld)Nucleated erythrocytes [Presence] in Blood by Automated count0-0.5FCleveland Clinic Foundation Nucleated RBC Auto Ql (Bld)0.1 /100{WBC}0-0.5FC[facility] Foundation Platelet mean volume Auto (Bld) [Entitic vol]Ordered By: Sandip Bunting on 73-38-5842Nsudzkwu mean volume (Bld) [Entitic vol]Platelet mean volume [Entitic volume] in Blood by Automated count6.6-10.1FC[facility] Clinic Foundation Platelet mean volume [Entitic volume] in Blood by Automated countOrdered By: Sandip Bunting on 86-59-2610Gvoqbjaw mean volume (Bld) [Entitic vol]7.5 fLNormal 6.6-10.1FCleveland Clinic FoundationComment on above:Performed By: #### ESR, CBC, CRP ####[facility] [place] [address] USAPlatelets Auto (Bld) [#/Vol]Ordered By: Sandip Bunting on 06-25-2024 Platelets (Bld) [#/Vol]Platelets [#/volume] in Blood by Automated piyje178-162 [facility] Medical CenterPlatelets [#/volume] in Blood by Automated countOrdered By: Sandip Bunting on 17-77-2764Gqmumrxfo (Bld) [#/Vol]234 10*3/uL Fjofih006-436IdytwuslwUniversity Hospitals Ahuja Medical CenterComment on above:Performed By: #### ESR, CBC, CRP ####[address] [place] [id number] USARBC Auto (Bld) [#/Vol]Ordered By: Sandip Bunting on 97-75-5003DAF (Bld) [#/Vol]Erythrocytes [#/volume] in Blood by Automated countLow3.90-5.60 [facility] Medical CenterWBC Auto (Bld) [#/Vol]Ordered By: Sandip Bunting on 25-13-2632ULC (Bld) [#/Vol]Leukocytes [#/volume] in Blood by Automated count4.1-10.5FCleveland Clinic FoundationBaowensboro health regional hospital Metabolic Panelon 97-62-9644Lqgtkdiph GFR25.145 mL/MinNoCone Health Physician GroupComment on above:Performed By: #### CBC, CRP, BMP, ESR ####[address] [place] [id number] USABasophils Auto (Bld) [#/Vol]Ordered By: Sandip Bunting on 37-27-3835Pikckkius (Bld) [#/Vol]Automated basophil count 0.0-0.2FCleveland Clinic FoundationBasophils [#/volume] in Blood by Automated countOrdered By: Sandip Bunting on 53-86-2135Okhlkdprc (Bld) [#/Vol] 0.1 10*3/uLNormal0.0-0.2FCleveland Clinic FoundationComment on above: Performed By: #### CBC, CRP, BMP, ESR ####[address] [address] USABasophils/100 WBC Auto (Bld)Ordered By: Sandip Aguirre on 19-56-8789Jcltkewfo/100 WBC (Bld)Automated basophil %.[facility] Medical CenterBasophils/100 leukocytes in Blood by Automated count Ordered By: Sandip Aguirre on 29-46-9316Foguygpbf/100 WBC (Bld)0.6 %Normal. [facility]ja Medical CenterComment on above:Performed By: #### CBC, CRP, BMP, ESR ####[address] [address] USAC reactive protein [Mass/volume] in Serum or PlasmaOrdered By: Sandip Aguirre on 70-31-0340IEV [Mass/Vol]C reactive protein [Mass/volume] in Serum or Plasma High0.0-0.5FCleveland Clinic FoundationCRP [Mass/Vol]19.0 mg/dLHigh0.0-0.5 [facility] CenterC-Reactive Proteinon 41-19-3314N-Reactive Zghjbin51.0 mg/dLHigh0.0-0.5The [facility] Physician GroupComment on above:Result Comment: PERFORMED BY:[address] [address] [address], [place] [phone] MEDICAL DIRECTORJAJA CATES M.D. Performed By: #### CBC, CRP, BMP, ESR ####[address] [address] USACalcium [Mass/volume] in Serum or Plasma Ordered By: Tamar Cunha on 67-54-7192Chpmaag [Mass/Vol]Calcium [Mass/volume] in Serum or Plasma8.6-10.3FCleveland Clinic FoundationCalcium [Mass/Vol] 8.6 mg/dLNormal8.6-10.3FCleveland Clinic FoundationComment on above: Performed By: #### CBC, CRP, BMP, ESR ####[address] [address] USACarbon dioxide, total [Moles/volume] in Serum or PlasmaOrdered By: Tamar Cunha on 75-55-9878ZZ2 [Moles/Vol]Carbon dioxide, total [Moles/volume] in Serum or Mrwdkj57.0-31.0[facility] Medical CenterCO2 [Moles/Vol]22.2 mmol/YGgatbk21.0-31.0[facility] Comment on above:Performed By: #### CBC, CRP, BMP, ESR ####[address] [place] [address] USAChloride [Moles/volume] in Serum or PlasmaOrdered By: Tamar Cunha on 41-83-3135Efrcavzg [Moles/Vol] Chloride [Moles/volume] in Serum or LproliNkp66-709SnfyjellyUniversity Hospitals Ahuja Medical CenterChloride [Moles/Vol]97 mmol/SBma07-302BtfshygxxUniversity Hospitals Ahuja Medical Center Comment on above:Performed By: #### CBC, CRP, BMP, ESR ####[address] [address] USAComplete Blood Count Auto Diff on 27-52-9381Axlv Corpuscular HGB Conc32.8 g/jMEbmjwz25.5-35.6The [facility] Physician GroupComment on above:Performed By: #### CBC, CRP, BMP, ESR ####[address] [address] USANRBC% 0.0 /100{WBC}Normal0-0.5[facility] Physician [facility] HospitalComment on above:Performed By: #### CBC, CRP, BMP, ESR ####[place] [id number] USACreatinine [Mass/volume] in Serum or PlasmaOrdered By: Tamar Cunha on 95-54-3643Sgbeoivwyh [Mass/Vol]Creatinine [Mass/volume] in Serum or PlasmaHigh0.70-1.30[facility] Medical CenterCreatinine [Mass/Vol]2.49 mg/dLHigh0.70-1.30[facility] Medical CenterComment on above:Performed By: #### CBC, CRP, BMP, ESR ####[address] [place] [address] USAEosinophils Auto (Bld) [#/Vol]Ordered By: Sandip Bunting on 70-04-6757Ctoaycilyds (Bld) [#/Vol]Automated eosinophil count0.0-0.45[facility] Medical CenterEosinophils [#/volume] in Blood by Automated countOrdered By: Sandip Bunting on 49-79-5694Bcuxdbmciqv (Bld) [#/Vol]0.2 10*3/uLNormal0.0-0.45[facility] Medical CenterComment on above:Performed By: #### CBC, CRP, BMP, ESR ####[address] [address] USAEosinophils/100 WBC Auto (Bld)Ordered By: Sandip Bunting on 79-28-1679Fjfsrmsijok/100 WBC (Bld)Automated eosinophil %. [facility] Medical CenterEosinophils/100 leukocytes in Blood by Automated countOrdered By: Sandip Bunting on 33-59-4284Tfzznflaiqs/100 WBC (Bld) 1.9 %Normal.[facility]huja Medical CenterComment on above:Performed By: #### CBC, CRP, BMP, ESR ####[address] [address] USAErythrocyte Sedimentation Rateon 86-48-1947ADL (Bld) [Velocity]105 mm/hHigh0-19The [facility] Physician GroupComment on above:Result Comment: PERFORMED BY:[address] [place], [place] [phone] MEDICAL DIRECTORJAJA CATES M.D. Performed By: #### CBC, CRP, BMP, ESR ####[address] [address] USAErythrocyte distribution width Auto (RBC) [Ratio]Ordered By: Sandip Bunting on 39-54-9989Llddmkkqgsf distribution width (RBC) [Ratio]Erythrocyte distribution width [Ratio] by Automated countHigh 12.0-14.8[facility]ja Medical CenterErythrocyte distribution width [Ratio] by Automated countOrdered By: Sandip Aguirre on 72-54-3466Qtqknbhoxjw distribution width (RBC) [Ratio]16.6 %High12.0-14.8[facility] Medical CenterComment on above:Performed By: #### CBC, CRP, BMP, ESR ####[facility] [address] [place] [address] USAErythrocyte sedimentation rate by Photometric methodOrdered By: Sandip Aguirre on 06-18-2024 ESR Photometric method (Bld) [Velocity]Erythrocyte sedimentation rate by Photometric methodUnited Hospital Center019[facility]ja Medical CenterESR Photometric method (Bld) [Velocity]105 mm/hrUnited Hospital Center019[facility] Erythrocytes [#/volume] in Blood by Automated countOrdered By: Sandip Aguirre on 12-33-3588KJJ (Bld) [#/Vol]3.31 10*6/uLLow3.90-5.60[facility] Medical CenterComment on above:Performed By: #### CBC, CRP, BMP, ESR ####[facility] [address] [place] [address] USAGlucose [Mass/volume] in Serum or PlasmaOrdered By: Tamar Cunha on 44-83-2576Gacnkpa [Mass/Vol] Glucose [Mass/volume] in Serum or YimhqlUpek03-135FrtbfjdmdUniversity Hospitals Ahuja Medical CenterComment on above:ADA recommended reference rangeRandom Glucose Reference Range is dependent on time and content of last meal. Glucose of more than 200 mg/dL in a nonstressed, ambulatory subject supports the diagnosisof Diabetes Mellitus.Glucose [Mass/Vol]105 mg/aQUviu03-759CxgkeuytiUniversity Hospitals Ahuja Medical Center Comment on above:ADA recommended reference rangeRandom Glucose [...] rangePerformed By: #### CBC, CRP, BMP, ESR ####[facility] [address] [id number] USAHematocrit Auto (Bld) [Volume fraction]Ordered By: Sandip Bunting on 61-62-9653Suumqyiqav (Bld) [Volume fraction]Hematocrit [Volume Fraction] of Blood by Automated uneqwZql86.8-50.0 [facility] Medical CenterHematocrit [Volume Fraction] of Blood by Automated countOrdered By: Sandip Bunting on 98-93-1536Qsjzgpjvrx (Bld) [Volume fraction]29.4 %Low38.8-50.0[facility]ja Medical CenterComment on above: Performed By: #### CBC, CRP, BMP, ESR ####[address] [place] [address] USAHemoglobin [Mass/volume] in BloodOrdered By: Sandip Bunting on 51-46-5227Sqjczvpdkg (Bld) [Mass/Vol]Hemoglobin [Mass/volume] in OsjouZmo57.0-17.0[facility] Medical CenterHemoglobin (Bld) [Mass/Vol] 9.6 g/dLLow13.0-17.0[facility] Medical CenterComment on above:Performed By: #### CBC, CRP, BMP, ESR ####[place] [id number] USALeukocytes [#/volume] corrected for nucleated erythrocytes in Blood by Automated counOrdered By: Sandip Bunting on 06-18-2024 WBC corrected for nucl RBC Auto (Bld) [#/Vol]Leukocytes [#/volume] corrected for nucleated erythrocytes in Blood by Automated counHigh4.1-10.5FCleveland Clinic FoundationWBC corrected for nucl RBC Auto (Bld) [#/Vol]10.9 10*3/uLHigh 4.1-10.5FCleveland Clinic FoundationLeukocytes [#/volume] in Blood by Automated countOrdered By: Sandip Bunting on 95-17-0899SQQ (Bld) [#/Vol]10.9 10*3/uLHigh4.1-10.5FCleveland Clinic FoundationComment on above:Performed By: #### CBC, CRP, BMP, ESR ####[facility] [place] [address] USALymphocytes Auto (Bld) [#/Vol]Ordered By: Sandip Bunting on 04-33-4073Oyxqymhbral (Bld) [#/Vol]Lymphocytes [#/volume] in Blood by Automated count1.00-4.8[facility]huja Medical CenterLymphocytes [#/volume] in Blood by Automated countOrdered By: Sandip Bunting on 69-39-7467Hnlysfputpl (Bld) [#/Vol]1.2 10*3/uLNormal1.00-4.8[facility] Medical CenterComment on above:Performed By: #### CBC, CRP, BMP, ESR ####[place] [id number] USALymphocytes/100 WBC Auto (Bld)Ordered By: Sandip Bunting on 52-81-7061Tarbirsybap/100 WBC (Bld)Lymphocytes/100 leukocytes in Blood by Automated count.[facility] Lymphocytes/100 leukocytes in Blood by Automated countOrdered By: Sandip Bunting on 33-11-4448Xxigzonewqv/100 WBC (Bld)10.9 %Normal.[facility]ja Medical CenterComment on above:Performed By: #### CBC, CRP, BMP, ESR ####[place] [id number] [facility] Auto (RBC) [Entitic mass]Ordered By: Sandip Bunting on 19-38-1930JGI (RBC) [Entitic mass] MCH [Entitic mass] by Automated count27.5-35.2FC[facility] Foundation MCH [Entitic mass] by Automated countOrdered By: Sandip Bunting on 52-51-6100NUB (RBC) [Entitic mass]29.1 brOnwohk46.5-35.2FC[facility] Comment on above:Performed By: #### CBC, CRP, BMP, ESR ####[place] [id number] [facility] Auto (RBC) [Mass/Vol] Ordered By: Sandip Bunting on 06-44-5791FMKM (RBC) [Mass/Vol]MCHC [Mass/volume] by Automated count32.5-35.6FTrinity Health System East CampusHC (RBC) [Mass/Vol]32.8 g/dL32.5-35.6FCleveland Clinic FoundationMCV Auto (RBC) [Entitic vol]Ordered By: Sandip Bunting on 76-39-1644SNK (RBC) [Entitic vol]MCV [Entitic volume] by Automated count83.5-101[facility] Medical CenterV [Entitic volume] by Automated countOrdered By: Sadnip Bunting on 15-47-6921KJG (RBC) [Entitic vol]88.[address] [place], [place] [address]Comment on above:Performed By: #### CBC, CRP, BMP, ESR ####[facility] [address] [place] [address] USAMonocytes Auto (Bld) [#/Vol]Ordered By: Sandip Bunting on 62-98-5313Wxujczofa (Bld) [#/Vol]Automated blood monocyte count0.0-0.8[facility] Medical CenterMonocytes [#/volume] in Blood by Automated countOrdered By: Sandip Bunting on 60-39-9876Pvuuplosg (Bld) [#/Vol] 0.8 10*3/uLNormal0.0-0.8[facility] Medical CenterComment on above: Performed By: #### CBC, CRP, BMP, ESR ####[place] [id number] USAMonocytes/100 WBC Auto (Bld)Ordered By: Sandip Bunting on 90-62-0247Qzosdjqvi/100 WBC (Bld)Automated monocyte %.[facility] Medical CenterMonocytes/100 leukocytes in Blood by Automated count Ordered By: Sandip Bunting on 86-12-3866Pydbsofha/100 WBC (Bld)7.0 %Normal. [facility] Medical CenterComment on above:Performed By: #### CBC, CRP, BMP, ESR ####[place] [id number] USANeutrophils Auto (Bld) [#/Vol]Ordered By: Sandip Bunting on 06-18-2024 Neutrophils (Bld) [#/Vol]Neutrophils [#/volume] in Blood by Automated countHigh 1.8-7.7FCleveland Clinic FoundationNeutrophils [#/volume] in Blood by Automated countOrdered By: Sandip Bunting on 13-11-7711Ssawwhgeufc (Bld) [#/Vol] 8.7 10*3/uLHigh1.8-7.7FCleveland Clinic FoundationComment on above: Performed By: #### CBC, CRP, BMP, ESR ####[facility] [address] [place] [address] USANeutrophils/100 WBC Auto (Bld)Ordered By: Sandip Bunting on 29-77-2046Ejzmdqvfciq/100 WBC (Bld)Automated neutrophil %. [facility] Medical CenterNeutrophils/100 leukocytes in Blood by Automated countOrdered By: Sandip Bunting on 77-99-9493Kifynhmzwbj/100 WBC (Bld) 79.6 %Normal.[facility]ja Medical CenterComment on above:Performed By: #### CBC, CRP, BMP, ESR ####[facility] [address] [place] [address] USANo Panel InformationOrdered By: Tamar Cunha on 36-85-4879Olhizenvw GFR (CKD-EPI)25.145 mL/[facility] Creatinine Clearance (ChemN/[facility]25.145 mL/[facility] SystemN/[facility] Nucleated erythrocytes [Presence] in Blood by Automated countOrdered By: Sandip Bunting on 27-13-5960Yfqgfruef RBC Auto Ql (Bld)Nucleated erythrocytes [Presence] in Blood by Automated count0-0.5FC[facility] Nucleated RBC Auto Ql (Bld)0.0 /100{WBC}0-0.5[facility] Platelet mean volume Auto (Bld) [Entitic vol]Ordered By: Sandip Bunting on 56-50-6873Ufuxmivq mean volume (Bld) [Entitic vol]Platelet mean volume [Entitic volume] in Blood by Automated count6.6-10.1FC[facility] Platelet mean volume [Entitic volume] in Blood by Automated countOrdered By: Sandip Bunting on 37-99-6583Snqdaadh mean volume (Bld) [Entitic vol]7.8 fLNormal 6.6-10.1FCleveland Clinic FoundationComment on above:Performed By: #### CBC, CRP, BMP, ESR ####[facility] [address] [place] [address] USAPlatelets Auto (Bld) [#/Vol]Ordered By: Sandip Bunting on 06-18-2024 Platelets (Bld) [#/Vol]Platelets [#/volume] in Blood by Automated -647 [facility] Medical CenterPlatelets [#/volume] in Blood by Automated countOrdered By: Sandip Bunting on 06-12-2937Ecmjofowu (Bld) [#/Vol]292 10*3/uL Qhayzy389-941CllfrcfltUniversity Hospitals Ahuja Medical CenterComment on above:Performed By: #### CBC, CRP, BMP, ESR ####[facility] [address] [place] [address] USAPotassium [Moles/volume] in Serum or PlasmaOrdered By: Tamar Cunha on 09-74-7656Mifwmojux [Moles/Vol]Potassium [Moles/volume] in Serum or Plasma3.5-5.1FCleveland Clinic FoundationPotassium [Moles/Vol] 4.7 mmol/LNormal3.5-5.1FCleveland Clinic FoundationComment on above: Performed By: #### CBC, CRP, BMP, ESR ####[facility] [address] [place] [address] USARBC Auto (Bld) [#/Vol]Ordered By: Sandip Bunsantiago on 77-64-7854QDB (Bld) [#/Vol]Erythrocytes [#/volume] in Blood by Automated countLow3.90-5.60Martins Ferry Hospitalerum or plasma anion gap determinationOrdered By: Taamr Cunha on 73-11-6322Zizpt gap [Moles/Vol]Serum or plasma anion gap determinationHigh6.0-15.0[facility] Medical CenterAnion gap [Moles/Vol]16.5 mmol/LHigh6.0-15.0[facility] Medical CenterComment on above:Performed By: #### CBC, CRP, BMP, ESR ####[facility] [place] [address] USASodium [Moles/volume] in Serum or PlasmaOrdered By: Tamar Cunha on 19-36-6535Ndjrqe [Moles/Vol]Sodium [Moles/volume] in Serum or WlcazfTux466-489ZlhzfyzqgMartins Ferry Hospitalodium [Moles/Vol]131 mmol/DYkf791-991PuuanfhtxUniversity Hospitals Ahuja Medical CenterComment on above:Performed By: #### CBC, CRP, BMP, ESR ####[facility] [address] [place] [address] USAUrea nitrogen [Mass/volume] in Serum or PlasmaOrdered By: Tamar Cunha on 97-15-1575Kuoa nitrogen [Mass/Vol]Urea nitrogen [Mass/volume] in Serum or PlasmaHigh7-25 [facility] Medical CenterUrea nitrogen [Mass/Vol]42 mg/dLHigh7-25 [facility] Medical CenterComment on above:Performed By: #### CBC, CRP, BMP, ESR ####[facility] [address] [place] [address] USAWBC Auto (Bld) [#/Vol]Ordered By: Sandip Bunting on 21-12-7905WNN (Bld) [#/Vol]Leukocytes [#/volume] in Blood by Automated countHigh4.1-10.5FCleveland Clinic FoundationBasophils Auto (Bld) [#/Vol]Ordered By: Sandip Bunting on 28-98-5924Goobtruzi (Bld) [#/Vol]Automated basophil count0.0-0.2FCleveland Clinic FoundationBasophils/100 WBC Auto (Bld)Ordered By: Sandip Bunting on 69-80-2710Xhfuzgmgk/100 WBC (Bld)Automated basophil %.[facility] Medical CenterComplete Blood Count Auto Diffon 58-35-8009Gfedcbpdj (Bld) [#/Vol] 0.0 10*3/uLNormal0.0-0.2The [facility] Physician GroupComment on above:Result Comment: PERFORMED BY:[address] [place], [place] [phone] MEDICAL DIRECTORJAJA CATES M.D. Performed By: #### CBC ####[place] [address] USABasophils/100 WBC (Bld)0.5 %Normal.The [facility] Physician GroupComment on above:Performed By: #### CBC ####[place] [address] USAEosinophils (Bld) [#/Vol]0.2 10*3/uLNormal0.0-0.45The [facility] Hospital Physician GroupComment on above:Performed By: #### CBC ####[place] [address] USAEosinophils/100 WBC (Bld)2.2 %Normal.The [facility] Physician GroupComment on above:Performed By: #### CBC ####[place] [address] USAErythrocyte distribution width (RBC) [Ratio]16.6 % High12.0-14.8The [facility] Physician GroupComment on above:Performed By: #### CBC ####[place] [address] [place] Hematocrit (Bld) [Volume fraction]29.1 %Low38.8-50.0The [facility] Physician GroupComment on above:Performed By: #### CBC ####[place] [address] USAHemoglobin (Bld) [Mass/Vol]9.7 g/dLLow 13.0-17.0The [facility] Physician GroupComment on above:Performed By: #### CBC ####[place] [address] [place] Lymphocytes (Bld) [#/Vol]0.8 10*3/uLLow1.00-4.8[facility] Comment on above:Performed By: #### CBC ####[place] [address] USALymphocytes/100 WBC (Bld)9.5 %Normal.[facility] Physician GroupComment on above:Performed By: #### CBC ####[address] (RBC) [Entitic mass]29.8 exLotxly72.5-35.2The [facility] Physician GroupComment on above: Performed By: #### CBC ####[address] (RBC) [Entitic vol]89.7 sVYsiesu55.5-101The [facility] Hospital Physician GroupComment on above:Performed By: #### CBC ####[place] [address] USAMean Corpuscular HGB Conc33.2 g/uXYoelcv15.5-35.6The [facility] Physician GroupComment on above: Performed By: #### CBC ####[place] [address] USAMonocytes (Bld) [#/Vol]0.6 10*3/uLNormal0.0-0.8[facility] Physician GroupComment on above:Performed By: #### CBC ####[place] [address] USAMonocytes/100 WBC (Bld)7.4 %Normal.[facility] Physician GroupComment on above:Performed By: #### CBC ####[place] [address] USANeutrophils (Bld) [#/Vol]7.0 10*3/uLNormal1.8-7.7The [facility] Physician GroupComment on above:Performed By: #### CBC ####[place] [address] USANeutrophils/100 WBC (Bld)80.4 %Normal. [facility] Physician GroupComment on above:Performed By: #### CBC ####[place] [address] USANRBC% 0.0 /100{WBC}Normal0-0.5The [facility] Physician GroupComment on above:Performed By: #### CBC ####[place] [address] USAPlatelet mean volume (Bld) [Entitic vol]8.1 fLNormal6.6-10.1The [facility] Physician GroupComment on above:Performed By: #### CBC ####[place] [address] USAPlatelets (Bld) [#/Vol]202 10*3/iZCcxheu260-316Fns [facility] Physician GroupComment on above: Performed By: #### CBC ####[place] [address] USARBC (Bld) [#/Vol]3.24 10*6/uLLow3.90-5.60[facility] Physician GroupComment on above:Performed By: #### CBC ####[place] [address] USAWBC (Bld) [#/Vol]8.7 10*3/uLNormal4.1-10.5[facility] Physician GroupComment on above:Performed By: #### CBC ####[place] [address] USAEosinophils Auto (Bld) [#/Vol]Ordered By: Sandip Bunting on 06-13-2024 Eosinophils (Bld) [#/Vol]Automated eosinophil count0.0-0.45[facility] Medical CenterEosinophils/100 WBC Auto (Bld)Ordered By: Sandip Bunting on 14-32-3000Ivkcicclvjt/100 WBC (Bld)Automated eosinophil %.[facility] Medical CenterErythrocyte distribution width Auto (RBC) [Ratio]Ordered By: Sandip Bunting on 16-76-8315Wuwbxnuzjts distribution width (RBC) [Ratio] Erythrocyte distribution width [Ratio] by Automated rbekgIusb68.0-14.8[facility]ja Medical CenterHematocrit Auto (Bld) [Volume fraction]Ordered By: Sandip Bunting on 54-04-8731Uzecgbcxvr (Bld) [Volume fraction]Hematocrit [Volume Fraction] of Blood by Automated dejrrNxb85.8-50.0[facility] Medical CenterHemoglobin [Mass/volume] in BloodOrdered By: Sandip Bunting on 06-13-2024 Hemoglobin (Bld) [Mass/Vol]Hemoglobin [Mass/volume] in XqapgVri00.0-17.0 [facility] Medical CenterLeukocytes [#/volume] corrected for nucleated erythrocytes in Blood by Automated counOrdered By: Sandip Bunting on 06-13-2024 WBC corrected for nucl RBC Auto (Bld) [#/Vol]Leukocytes [#/volume] corrected for nucleated erythrocytes in Blood by Automated coun4.1-10.5FCleveland Clinic FoundationLymphocytes Auto (Bld) [#/Vol]Ordered By: Sandip Bunting on 40-44-5848Pltlfcbcrmm (Bld) [#/Vol]Lymphocytes [#/volume] in Blood by Automated countLow1.00-4.8[facility] Medical CenterLymphocytes/100 WBC Auto (Bld) Ordered By: Sandip Bunting on 04-02-3553Gnbufkggwzl/100 WBC (Bld)Lymphocytes/100 leukocytes in Blood by Automated count.[facility]ja Medical CenterMCH Auto (RBC) [Entitic mass]Ordered By: Sandip Bunting on 12-86-5189LBE (RBC) [Entitic mass]MCH [Entitic mass] by Automated count27.5-35.2FCleveland Clinic FoundationMCHC Auto (RBC) [Mass/Vol]Ordered By: Sandip Bunting on 06-13-2024 MCHC (RBC) [Mass/Vol]MCHC [Mass/volume] by Automated count32.5-35.6FCleveland Clinic FoundationMCV Auto (RBC) [Entitic vol]Ordered By: Sandip Bunting on 91-60-3651YCV (RBC) [Entitic vol]MCV [Entitic volume] by Automated count83.5-101 [facility] CenterMonocytes Auto (Bld) [#/Vol]Ordered By: Sandip Bunting on 55-11-2258Qohlasfrd (Bld) [#/Vol]Automated blood monocyte count 0.0-0.8[facility] CenterMonocytes/100 WBC Auto (Bld)Ordered By: Sandip Bunting on 46-70-3334Pdswigcss/100 WBC (Bld)Automated monocyte %. [facility] CenterNeutrophils Auto (Bld) [#/Vol]Ordered By: Sandip Bunting on 72-63-6121Ltofdbpwryl (Bld) [#/Vol]Neutrophils [#/volume] in Blood by Automated count1.8-7.7FCleveland Clinic FoundationNeutrophils/100 WBC Auto (Bld)Ordered By: Sandip Bunting on 67-58-9284Olzqkksbiyz/100 WBC (Bld) Automated neutrophil %.[facility] Medical CenterNucleated erythrocytes [Presence] in Blood by Automated countOrdered By: Sandip Bunting on 06-13-2024 Nucleated RBC Auto Ql (Bld)Nucleated erythrocytes [Presence] in Blood by Automated count0-0.5FCleveland Clinic FoundationPlatelet mean volume Auto (Bld) [Entitic vol]Ordered By: Sandip Bunting on 84-03-5077Gpxdmlgf mean volume (Bld) [Entitic vol]Platelet mean volume [Entitic volume] in Blood by Automated count6.6-10.1FCleveland Clinic FoundationPlatelets Auto (Bld) [#/Vol] Ordered By: Sandip Bunting on 14-49-0163Zzatxirti (Bld) [#/Vol]Platelets [#/volume] in Blood by Automated ymhdb599-613YiijbinguUniversity Hospitals Ahuja Medical Center RBC Auto (Bld) [#/Vol]Ordered By: Sandip Bunting on 24-61-9110GIB (Bld) [#/Vol] Erythrocytes [#/volume] in Blood by Automated countLow3.90-5.60[facility] CenterWBC Auto (Bld) [#/Vol]Ordered By: Sandip Bunting on 98-34-2037CSC (Bld) [#/Vol]Leukocytes [#/volume] in Blood by Automated count 4.1-10.5FCleveland Clinic FoundationAppearance of UrineOrdered By: Sandip Bunting on 33-20-0069Avcqmzhgek (U)Urine appearanceAbnormalClearUniversity Hospitals Ahuja Medical CenterBacteria [Presence] in Urine by AutomatedOrdered By: Sandip Bunting on 08-70-5926Pbjrexkt Auto Ql (U)Bacteria [Presence] in Urine by AutomatedNone Martin Memorial HospitalBilirubin Test strip Ql (U) Ordered By: Sandip Bunting on 78-33-2235Fkowsuikk Ql (U)Bilirubin.total [Presence] in Urine by Test stripNegativeUniversity Hospitals Ahuja Medical CenterColor Auto (U)Ordered By: Sandip Bunting on 93-81-0043Ljauo (U)Color of Urine by Auto YellowUniversity Hospitals Ahuja Medical CenterDipstick and Microscopicon 06-12-2024 Appearance (U)TurbidCritically abnormalClearThe Lev[facility]'S Hospital Physician GroupComment on above:Order Comment: Name Collection Type:: Collection Method Unknown Performed By: #### CUU, ADDONUAPLUS ####[facility] [place], [place] USABacteria,UrineRareNormalNone SeenHca Florida Woodmont Hospital Physician GroupComment on above:Order Comment: Name Collection Type:: Collection Method UnknownPerformed By: #### CUU, ADDONUAPLUS ####[facility] [place], [place] USABilirubin,UrineNegativeNormal NegativeThe Levine Children'S Hospital Physician GroupComment on above:Order Comment: Name Collection Type:: Collection Method UnknownPerformed By: #### CUU, ADDONUAPLUS ####[facility] [facility] [place] USAColor (U)YellowNormalYellowThe Levine Children'S Hospital Physician GroupComment on above:Order Comment: Name Collection Type:: Collection Method UnknownPerformed By: #### CUU, ADDONUAPLUS ####[facility] [place] [address] USAGlucose Ql (U)NormalNormalNormalThe [facility]ine Children'S Hospital Physician GroupComment on above:Order Comment: Name Collection Type:: Collection Method UnknownPerformed By: #### CUU, ADDONUAPLUS ####[address] [id number] USAHyaline Casts,UrineNoneNormal0-8The [facility] Hospital Physician GroupComment on above:Order Comment: Name Collection Type:: Collection Method UnknownResult Comment: PERFORMED BY:[address] [place] [address] [place], [place] [phone] MEDICAL DIRECTORJAJA CATES M.D.Performed By: #### CUU, ADDONUAPLUS ####[address] USAKetones Ql (U)NegativeNormalNegativeHca Florida Woodmont Hospital Physician GroupComment on above:Order Comment: Name Collection Type:: Collection Method UnknownPerformed By: #### MANDO, ADDONUAPLUS ####[address] [address] USALeukocyte esterase Test strip Ql (U)4+HighNegativeHca Florida Woodmont Hospital Physician GroupComment on above:Order Comment: Name Collection Type:: Collection Method UnknownPerformed By: #### MANDO, ADDONUAPLUS ####[address] [address] USANitrite,UrinePositiveHigh NegativeThe Levine Children'S Hospital Physician GroupComment on above:Order Comment: Name Collection Type:: Collection Method UnknownPerformed By: #### CUU, ADDONUAPLUS ####[address] [id number] USAOccult Blood,Urine2+HighNegativeHca Florida Wood[facility] Hospital Physician GroupComment on above:Order Comment: Name Collection Type:: Collection Method UnknownResult Comment: PERFORMED BY:[address] [address] GOLDSTEINDaneAMEENAALSEA, [place] [phone] MEDICAL DIRECTORJAJA CATES M.D. Performed By: #### MANDO ADDONUAPLUS ####[address], [address] USApH (U)8.0 [pH]Normal5.0-9.0The [facility]S Hospital Physician GroupComment on above:Order Comment: Name Collection Type:: Collection Method UnknownPerformed By: #### CUU, ADDONUAPLUS ####[address] Andrewnovant health[place], [place] USAProtein (U) [Mass/Vol]70 mg/dLHigh NegativeThe Levine Children'S Hospital Physician GroupComment on above:Order Comment: Name Collection Type:: Collection Method UnknownPerformed By: #### CUU, ADDONUAPLUS ####[address], [place]F[address] [place] RBC,Faqld06-03Qyhn4-1Yjo [facility] Hospital Physician GroupComment on above:Order Comment: Name Collection Type:: Collection Method UnknownPerformed By: #### CUU, ADDONUAPLUS ####[address] [address] USASpecificy [place],Urine1.494Afhmaj1.001-1.030The [facility] Hospital Physician GroupComment on above:Order Comment: Name Collection Type:: Collection Method UnknownPerformed By: #### CUU, ADDONUAPLUS ####[address] Andre[address] health[place], [place] USAUrobilinogen,UrineNormalNormalNormalThe [facility] Children'S Hospital Physician GroupComment on above:Order Comment: Name Collection Type:: Collection Method UnknownPerformed By: #### CUU, ADDONUAPLUS ####[address] Andre[place] health[place], [place] USAWBC CLUMP, UrineMany HighNone SeenHca Florida Woodmont Hospital Physician GroupComment on above:Order Comment: Name Collection Type:: Collection Method UnknownPerformed By: #### CUU, ADDONUAPLUS ####[address] [place] health[place], [place] [place] WBC,UrineInnumerableHigh0-4The [facility] Hospital Physician GroupComment on above:Order Comment: Name Collection Type:: Collection Method UnknownPerformed By: #### CUU, ADDONUAPLUS ####[facility] [address] [place] [address] USAEpithelial cells.squamous [#/area] in Urine sediment by Automated count Ordered By: Sandip Bunting on 22-46-3097Xcvmcogrvl cells.squamous Auto (Urine sed) [#/Area]Epithelial cells.squamous [#/area] in Urine sediment by Automated countUniversity Hospitals Ahuja Medical CenterErythrocytes [#/area] in Urine sediment by Automated countOrdered By: Sandip Bunting on 28-73-7433DPQ Auto (Urine sed) [#/Area]Erythrocytes [#/area] in Urine sediment by Automated countHigh0-4 [facility] Medical CenterGlucose [Mass/volume] in Urine by Test strip Ordered By: Sandip Bunting on 52-54-9071Sxkgouv Test strip (U) [Mass/Vol]Glucose [Mass/volume] in Urine by Test stripBrecksville VA [facility] Hemoglobin Test strip Ql (U)Ordered By: Sandip Bunting on 82-39-6617Pkwgkgtcty Ql (U)Hemoglobin [Presence] in Urine by Test stripSelect Medical Specialty Hospital - Cleveland-FairhillHyaline casts [#/area] in Urine sediment by Automated count Ordered By: Sandip Bunting on 92-32-2520Ysrhiqc casts Auto (Urine sed) [#/Area] Hyaline casts [#/area] in Urine sediment by Automated count0-8[facility] Medical CenterKetones Test strip Ql (U)Ordered By: Sandip Bunting on 06-12-2024 Ketones Ql (U)Ketones [Presence] in Urine by Test stripNegMercy Health Defiance HospitalLeukocyte clumps [Presence] in Urine by AutomatedOrdered By: Sandip Bunting on 18-66-6301Lkuauaila clumps Auto Ql (U)Leukocyte clumps [Presence] in Urine by AutomatedWelch Community Hospitale [facility] Leukocyte esterase [Presence] in Urine by Test stripOrdered By: Sandip Bunting on 44-70-2884Xpmenlsxk esterase Test strip Ql (U)Leukocyte esterase [Presence] in Urine by Test stripSelect Medical Specialty Hospital - Cleveland-FairhillLeukocytes [#/area] in Urine sediment by Automated countOrdered By: Sandip Bunting on 19-70-2219OTP Auto (Urine sed) [#/Area]Leukocytes [#/area] in Urine sediment by Automated countHigh0-4FCleveland Clinic FoundationNitrite Test strip Ql (U) Ordered By: Sandip Bunting on 77-08-2467Asfqrsw Ql (U)Nitrite [Presence] in Urine by Test stripHighNegMercy Health Defiance HospitalProtein Test strip (U) [Mass/Vol]Ordered By: Sandip Bunting on 39-12-2232Wsmibeq (U) [Mass/Vol]Protein [Mass/volume] in Urine by Test stripHighNegPeoples Hospitalpecific gravity Test strip (U) [Rel density]Ordered By: Sandip Bunting on 69-88-4483Pkcmmbfe gravity (U) [Rel density]Specific gravity of Urine by Test strip1.001-1.030[facility] Medical CenterUrine Culture on 14-46-5769Owjvbwgh identified Cx Nom (U)NormalThe [facility]ine [facility] Hospital Physician Group Comment on above:Performed By: #### CUU, ADDEMERITAUAPLUS ####[facility] StreetUrine cultureOrdered By: Sandip Bunting on 33-38-1808Xkfariuu identified Cx Nom (U)AbnormalUniversity Hospitals Ahuja Medical CenterBacteria identified Cx Nom (U)AbnormalUniversity Hospitals Ahuja Medical CenterUrine cultureAbnoDayton Osteopathic HospitalUrine culture AbnormalUniversity Hospitals Ahuja Medical CenterUrobilinogen Test strip (U) [Mass/Vol] Ordered By: Sandip Bunting on 50-22-1187Iiqmembpilec (U) [Mass/Vol]Urobilinogen [Mass/volume] in Urine by Test stripNoDayton Osteopathic HospitalpH Test strip (U)Ordered By: Sandip Bunting on 22-97-6917zX (U)pH of Urine by Test strip5.0-9.0[facility] Medical CenterBasophils Auto (Bld) [#/Vol]Ordered By: Sandip Bunting on 43-62-9126Rqohfzarb (Bld) [#/Vol]Automated basophil count 0.0-0.2FCleveland Clinic FoundationBasophils/100 WBC Auto (Bld)Ordered By: Sandip Bunting on 75-32-0288Aakcyczil/100 WBC (Bld)Automated basophil %. [facility] Medical CenterC reactive protein [Mass/volume] in Serum or PlasmaOrdered By: Sandip Bunting on 41-23-1325RFI [Mass/Vol]C reactive protein [Mass/volume] in Serum or PlasmaHigh0.0-0.5FCleveland Clinic FoundationC- Reactive Proteinon 90-43-2117X-Reactive Bsktdgz15.3 mg/dLHigh0.0-0.5The [facility] Hospital Physician GroupComment on above:Result Comment: PERFORMED BY:[address] [place], [place] [phone] MEDICAL DIRECTORJAJA CATES M.D.Performed By: #### CRP, CBC, ESR ####[address] [address] [facility] Complete Blood Count Auto Diffon 08-95-5150Xrfyonsim (Bld) [#/Vol]0.0 10*3/uL Normal0.0-0.2The [facility] Physician [facility] HospitalComment on above:Performed By: #### CRP, CBC, ESR ####[address] [address] USABasophils/100 WBC (Bld)0.3 %Normal.The [facility] Hospital Physician GroupComment on above:Performed By: #### CRP, CBC, ESR ####[address] [address] USAEosinophils (Bld) [#/Vol]0.1 10*3/uL Normal0.0-0.45The [facility] Physician [facility] HospitalComment on above:Performed By: #### CRP, CBC, ESR ####[address] [address] USAEosinophils/100 WBC (Bld)0.6 %Normal.The [facility] Comment on above:Performed By: #### CRP, CBC, ESR ####[address] [address] USAErythrocyte distribution width (RBC) [Ratio]16.3 %High12.0-14.8The [facility] Hospital Physician GroupComment on above: Performed By: #### CRP, CBC, ESR ####[place] [address] USAHematocrit (Bld) [Volume fraction]26.9 %Low38.8-50.0 The [facility] Hospital Physician GroupComment on above:Performed By: #### CRP, CBC, ESR ####[place] [address] [facility] Hemoglobin (Bld) [Mass/Vol]8.8 g/dLLow13.0-17.0The [facility] Comment on above:Performed By: #### CRP, CBC, ESR ####[place] [address] USALymphocytes (Bld) [#/Vol]1.7 10*3/uL Normal1.00-4.8The [facility] Hospital Physician GroupComment on above:Performed By: #### CRP, CBC, ESR ####[place] [address] USALymphocytes/100 WBC (Bld)13.8 %Normal.The [facility] Comment on above:Performed By: #### CRP, CBC, ESR ####[address] [address] USAMCH (RBC) [Entitic mass]29.1 pgNormal 27.5-35.2The [facility] Hospital Physician GroupComment on above:Performed By: #### CRP, CBC, ESR ####[address] [address] USAMCV (RBC) [Entitic vol]88.8 fRJhoafw68.5-101The [facility] Comment on above:Performed By: #### CRP, CBC, ESR ####[place] [address] USAMean Corpuscular HGB Conc32.8 g/dL Eebmfz64.5-35.6The [facility] Hospital Physician GroupComment on above:Performed By: #### CRP, CBC, ESR ####[address] [place] [address] USAMonocytes (Bld) [#/Vol]1.1 10*3/uLHigh0.0-0.8The [facility] Physician GroupComment on above:Performed By: #### CRP, CBC, ESR ####[address] [address] USAMonocytes/100 WBC (Bld)9.1 % Normal.The [facility] Hospital Physician GroupComment on above:Performed By: #### CRP, CBC, ESR ####[address] [address] USANeutrophils (Bld) [#/Vol]9.1 10*3/uLHigh1.8-7.7The [facility] Comment on above:Performed By: #### CRP, CBC, ESR ####[address] [address] USANeutrophils/100 WBC (Bld)76.2 %Normal .The [facility] Hospital Physician GroupComment on above:Performed By: #### CRP, CBC, ESR ####[address] [address] USANRBC% 0.0 /100{WBC}Normal0-0.5The [facility] Hospital Physician GroupComment on above:Performed By: #### CRP, CBC, ESR ####[address] [address] USAPlatelet mean volume (Bld) [Entitic vol]8.0 fLNormal 6.6-10.1The [facility] Hospital Physician GroupComment on above:Performed By: #### CRP, CBC, ESR ####[address] [address] USAPlatelets (Bld) [#/Vol]214 10*3/dZHpdifk821-271Dvj [facility] Comment on above:Performed By: #### CRP, CBC, ESR ####[address] [address] USARBC (Bld) [#/Vol]3.03 10*6/uLLow 3.90-5.60The [facility] Hospital Physician GroupComment on above:Performed By: #### CRP, CBC, ESR ####[address] [place] [address] USAWBC (Bld) [#/Vol]12.0 10*3/uLHigh4.1-10.5The [facility] Physician GroupComment on above:Performed By: #### CRP, CBC, ESR ####[address] [address] USAEosinophils Auto (Bld) [#/Vol]Ordered By: Sandip Bunting on 99-34-0658Edhycvkobde (Bld) [#/Vol]Automated eosinophil count0.0-0.45[facility] Medical CenterEosinophils/100 WBC Auto (Bld) Ordered By: Sandip Bunting on 84-08-1716Ragmzosrxkn/100 WBC (Bld)Automated eosinophil %.[facility] Medical CenterErythrocyte Sedimentation Rateon 28-45-3115UFS (Bld) [Velocity]97 mm/hHigh0-19The [facility] Comment on above:Result Comment: PERFORMED BY:[address] [place], [place] [phone] MEDICAL DIRECTORJAJA CATES M.D.Performed By: #### CRP, CBC, ESR ####[address] [address] [facility] Erythrocyte distribution width Auto (RBC) [Ratio]Ordered By: Sandip Bunting on 28-14-3929Taxngyvimxv distribution width (RBC) [Ratio]Erythrocyte distribution width [Ratio] by Automated tmwbfDtnp45.0-14.8[facility] Erythrocyte sedimentation rate by Photometric methodOrdered By: Sandip Bunting on 81-06-4354EPQ Photometric method (Bld) [Velocity]Erythrocyte sedimentation rate by Photometric methodHigh0-19[facility] Medical CenterHematocrit Auto (Bld) [Volume fraction]Ordered By: Sandip Bunting on 96-22-8247Gehducfmri (Bld) [Volume fraction]Hematocrit [Volume Fraction] of Blood by Automated count Low38.8-50.0[facility]ja Medical CenterHemoglobin [Mass/volume] in Blood Ordered By: Sandip Bunting on 74-30-7468Zgzpszjshg (Bld) [Mass/Vol]Hemoglobin [Mass/volume] in AftwkGcn44.0-17.0[facility] Medical CenterLeukocytes [#/volume] corrected for nucleated erythrocytes in Blood by Automated coun Ordered By: Sandip Bunting on 00-32-3810IQU corrected for nucl RBC Auto (Bld) [#/Vol]Leukocytes [#/volume] corrected for nucleated erythrocytes in Blood by Automated counHigh4.1-10.5FCleveland Clinic FoundationLymphocytes Auto (Bld) [#/Vol]Ordered By: Sandip Bunting on 60-67-7037Xvnnxnclmyh (Bld) [#/Vol] Lymphocytes [#/volume] in Blood by Automated count1.00-4.8[facility] Medical CenterLymphocytes/100 WBC Auto (Bld)Ordered By: Sandip Bunting on 70-79-3056Hdghludjiaf/100 WBC (Bld)Lymphocytes/100 leukocytes in Blood by Automated count.[facility]ja Medical CenterMCH Auto (RBC) [Entitic mass] Ordered By: Sandip Bunting on 77-14-4545PKR (RBC) [Entitic mass]MCH [Entitic mass] by Automated count27.5-35.2FCleveland Clinic FoundationMCHC Auto (RBC) [Mass/Vol]Ordered By: Sandip Bunting on 20-63-0726UZSY (RBC) [Mass/Vol] MCHC [Mass/volume] by Automated count32.5-35.6FC[facility] Foundation MCV Auto (RBC) [Entitic vol]Ordered By: Sandip Bunting on 43-17-0175ESK (RBC) [Entitic vol]MCV [Entitic volume] by Automated count83.5-101[facility] Medical CenterMonocytes Auto (Bld) [#/Vol]Ordered By: Sandip Bunting on 13-07-2501Qxbsvxnld (Bld) [#/Vol]Automated blood monocyte countHigh0.0-0.8 [facility] CenterMonocytes/100 WBC Auto (Bld)Ordered By: Sandip Aguirre on 25-35-5506Bcelyyfhf/100 WBC (Bld)Automated monocyte %.[facility] Medical CenterNeutrophils Auto (Bld) [#/Vol]Ordered By: Sandip Bunting on 48-41-0849Hipqeqtoouq (Bld) [#/Vol]Neutrophils [#/volume] in Blood by Automated countHigh1.8-7.7FCleveland Clinic FoundationNeutrophils/100 WBC Auto (Bld)Ordered By: Sandip Aguirre on 05-82-9689Pqzsrsuxlou/100 WBC (Bld) Automated neutrophil %.[facility] Medical CenterNucleated erythrocytes [Presence] in Blood by Automated countOrdered By: Sandip Aguirre on 06-11-2024 Nucleated RBC Auto Ql (Bld)Nucleated erythrocytes [Presence] in Blood by Automated count0-0.5FCleveland Clinic FoundationPlatelet mean volume Auto (Bld) [Entitic vol]Ordered By: Sandip Aguirre on 58-63-9583Nbxgqjrg mean volume (Bld) [Entitic vol]Platelet mean volume [Entitic volume] in Blood by Automated count6.6-10.1FCleveland Clinic FoundationPlatelets Auto (Bld) [#/Vol] Ordered By: Sandip Mirzating on 90-40-3102Nalgqjwur (Bld) [#/Vol]Platelets [#/volume] in Blood by Automated -001AryrrugzgUniversity Hospitals Ahuja Medical Center RBC Auto (Bld) [#/Vol]Ordered By: Sandip Mirzating on 43-58-1174LVR (Bld) [#/Vol] Erythrocytes [#/volume] in Blood by Automated countLow3.90-5.60[facility] Medical CenterWBC Auto (Bld) [#/Vol]Ordered By: Sandip Bunting on 77-03-5068CFD (Bld) [#/Vol]Leukocytes [#/volume] in Blood by Automated countHigh 4.1-10.5FCleveland Clinic FoundationInfectious Disease Office/Clinic Noteon 95-24-6447Yqcdmlknew Disease Office/Clinic NoteAssessment/Plan 1. Surgical wound dehiscence [...] has had no fevers or chills. This insurance underwriter sales did talk with patient he is having [...] the andre [1] he had surgery at [facility] in [place].Postoperatively gained a lot of fluid weight. Also has catheter for urinary retention. Has chronic lymphedema uses pumps at home. Admitted to [place] had MRI that showed fluid collection. History ofA-fib. Surgery was not done there due to need for cardiology services. Transferred to [facility] where he connected with cardiology. Actually went [...] to witness patient stand with assist. This insurance underwriter sales was able to visualize back incision appears [...] (02/21/2024) Lumbar Wound Irri (more content not included)...[facility] HospitalProvider Letteron 49-08-2071Fwczmime Letter Re: Tavo Wallis Carson Date of Visit: 06/07/2024 13:30:[address] Mcintyre, In regards to our mutual patient Vaughn Tavo Byrd. Attached you will find the most recent office visit note. Please call if you have any questions or concerns. Sincerely, Tamar Cunha APRN-C [facility] [address], [address] [place] [address] The following document(s) were included in the letter: June 07, 2024 14:05:12 EDT - (06/07/2024) Infectious Disease Office Visit Note [facility] HospitalBasic Metabolic Panelon 17-79-7133Jcapr gap [Moles/Vol]14.1 mmol/LNormal6.0-15.0The [facility] Physician GroupComment on above:Order Comment: BMP ADD ON PER *[employer] BUNDLE CUTTER-CREAM GATHERER, Tamar Luis M* AT INFECTIOUS DISEASE AND TRAVEL MEDICINE. FAXED ORDER ASKING TO ADD ON TO BLOOD DRAWN EARLIER TODAY.Performed By: #### CRP, BMP, CBC, ESR ####[facility] [address] [place] [address] USACalcium [Mass/Vol]9.0 mg/dL Normal8.6-10.3The [facility] Hospital Physician GroupComment on above:Order Comment: BMP ADD ON PER *[employer] BUNDLE CUTTER-CREAM GATHERER, Tamar Luis M* AT INFECTIOUS DISEASE AND TRAVEL MEDICINE. FAXED ORDER ASKING TO ADD ON TO BLOOD DRAWN EARLIER TODAY.Performed By: #### CRP, BMP, CBC, ESR ####[facility] [address] [place] [address] USAChloride [Moles/Vol]100 mmol/NWvgtlm83-481Djc [facility] Hospital Physician GroupComment on above:Order Comment: BMP ADD ON PER *[employer] BUNDLE CUTTER-CREAM GATHERER, Tamar Luis M* AT INFECTIOUS DISEASE AND TRAVEL MEDICINE. FAXED ORDER ASKING TO ADD ON TO BLOOD DRAWN EARLIER TODAY.Performed By: #### CRP, BMP, CBC, ESR ####[facility] [place] [address] USACO2 [Moles/Vol]28.8 mmol/TZmyyui73.0-31.0The [facility] Hospital Physician GroupComment on above:Order Comment: BMP ADD ON PER *[employer] BUNDLE CUTTER-CREAM GATHERER, Tamar Luis M* AT INFECTIOUS DISEASE AND TRAVEL MEDICINE. FAXED ORDER ASKING TO ADD ON TO BLOOD DRAWN EARLIER TODAY.Performed By: #### CRP, BMP, CBC, ESR ####[address] [address] [place] [address] USACreatinine [Mass/Vol] 1.16 mg/dLNormal0.70-1.30The [facility] Hospital Physician GroupComment on above:Order Comment: BMP ADD ON PER *[employer] BUNDLE CUTTER-CREAM GATHERER, Tamar Luis M* AT INFECTIOUS DISEASE AND TRAVEL MEDICINE. FAXED ORDER ASKING TO ADD ON TO BLOOD DRAWN EARLIER TODAY. Performed By: #### CRP, BMP, CBC, ESR ####[address] [address] [place] [address] USAGFR/1.73 sq M.predicted MDRD (S/P/Bld) [Vol rate/Area]mL/min/{1.73_m2}NormalThe Levine Children'S Hospital Physician GroupComment on above: Order Comment: BMP ADD ON PER *[employer] BUNDLE CUTTER-CREAM GATHERER, Tamar Luis M* AT INFECTIOUS DISEASE AND TRAVEL MEDICINE. FAXED ORDER ASKING TO ADD ON TO BLOOD DRAWN EARLIER TODAY.Performed By: #### CRP, BMP, CBC, ESR ####[facility] [place] [address] USAGlucose [Mass/Vol]93 mg/sQAbkfnq40-580 The [facility] Hospital Physician GroupComment on above:Order Comment: BMP ADD ON PER *[employer] BUNDLE CUTTER-CREAM GATHERER, Tamar Luis M* AT INFECTIOUS DISEASE AND TRAVEL MEDICINE. FAXED ORDER ASKING TO ADD ON TO BLOOD DRAWN EARLIER TODAY.Result Comment: Random Glucose Reference Range is dependent on time and content of last meal. Glucose of more than 200 mg/dL in a nonstressed, ambulatory subject supports the diagnosis of Diabetes Mellitus. ADA recommended reference rangePerformed By: #### CRP, BMP, CBC, ESR ####[id number] [place] [address] USAPotassium [Moles/Vol]3.9 mmol/LNormal3.5-5.1The [facility] Physician GroupComment on above:Order Comment: BMP ADD ON PER *Guerline BUNDLE CUTTER-CREAM GATHERER, Tamar Luis M* AT INFECTIOUS DISEASE AND TRAVEL MEDICINE. FAXED ORDER ASKING TO ADD ON TO BLOOD DRAWN EARLIER TODAY.Performed By: #### CRP, BMP, CBC, ESR ####[address] [address] USASodium [Moles/Vol]139 mmol/CVrpvfg518-927Tmu [facility] Physician GroupComment on above:Order Comment: BMP ADD ON PER *Guerline BUNDLE CUTTER-CREAM GATHERER, Tamar Luis M* AT INFECTIOUS DISEASE AND TRAVEL MEDICINE. FAXED ORDER ASKING TO ADD ON TO BLOOD DRAWN EARLIER TODAY.Performed By: #### CRP, BMP, CBC, ESR ####[address] [address] USAUrea nitrogen [Mass/Vol]19 mg/dLNormal7-25The [facility] Physician GroupComment on above:Order Comment: BMP ADD ON PER *Guerline BUNDLE CUTTER-CREAM GATHERER, Tamar Luis M* AT INFECTIOUS DISEASE AND TRAVEL MEDICINE. FAXED ORDER ASKING TO ADD ON TO BLOOD DRAWN EARLIER TODAY. Performed By: #### CRP, BMP, CBC, ESR ####[address] [address] USABasophils Auto (Bld) [#/Vol]Ordered By: Sandip Bunsantiago on 52-30-9139Orkretypt (Bld) [#/Vol]Automated basophil count0.0-0.2 [facility] CenterBasophils/100 WBC Auto (Bld)Ordered By: Sandip Bunting on 69-97-3557Alltdtopx/100 WBC (Bld)Automated basophil %.[facility] Medical CenterC reactive protein [Mass/volume] in Serum or Plasma Ordered By: Sandip Aguirre on 15-58-6568NGB [Mass/Vol]C reactive protein [Mass/volume] in Serum or PlasmaHigh0.0-0.5FCleveland Clinic FoundationC- Reactive Proteinon 71-88-0627F-Reactive Protein7.7 mg/dLHigh0.0-0.5The [facility] Physician GroupComment on above:Result Comment: PERFORMED BY:[facility] [place], [place] [phone] MEDICAL DIRECTORJAJA CATES M.D.Performed By: #### CRP, BMP, CBC, ESR ####[facility] [address] [place] [address] USAOrder Comment: BMP ADD ON PER *Guerline BELLA, Tamar Asencio* AT INFECTIOUS DISEASE AND TRAVEL MEDICINE. FAXED ORDER ASKING TO ADD ON TO BLOOD DRAWN EARLIER TODAY. Calcium [Mass/volume] in Serum or PlasmaOrdered By: Sandip Bunting on 06-06-2024 Calcium [Mass/Vol]Calcium [Mass/volume] in Serum or Plasma8.6-10.3FCleveland Clinic FoundationCarbon dioxide, total [Moles/volume] in Serum or Plasma Ordered By: Sandip Bunting on 21-67-0385HR3 [Moles/Vol]Carbon dioxide, total [Moles/volume] in Serum or Xskrwl56.0-31.0[facility] Chloride [Moles/volume] in Serum or PlasmaOrdered By: Sandip Bunting on 19-99-3579Rbeqardm [Moles/Vol]Chloride [Moles/volume] in Serum or Cntnms37-368 [facility] Medical CenterComplete Blood Count Auto Diffon 06-06-2024 Basophils (Bld) [#/Vol]0.1 10*3/uLNormal0.0-0.2[facility] Comment on above:Performed By: #### CRP, BMP, CBC, ESR ####[facility] [address] [place] [address] USABasophils/100 WBC (Bld)0.6 % Normal.The [facility] Physician GroupComment on above:Performed By: #### CRP, BMP, CBC, ESR ####[place] [address] USAEosinophils (Bld) [#/Vol]0.6 10*3/uLHigh0.0-0.45The [facility] Physician GroupComment on above:Performed By: #### CRP, BMP, CBC, ESR ####[place] [address] USAEosinophils/100 WBC (Bld)6.2 %Normal.The [facility] Physician GroupComment on above:Performed By: #### CRP, BMP, CBC, ESR ####[place] [address] USAErythrocyte distribution width (RBC) [Ratio]16.3 % High12.0-14.8The [facility] Physician GroupComment on above:Performed By: #### CRP, BMP, CBC, ESR ####[place] [address] USAHematocrit (Bld) [Volume fraction]28.8 %Low38.8-50.0The [facility] Physician GroupComment on above:Performed By: #### CRP, BMP, CBC, ESR ####[address] Hemoglobin (Bld) [Mass/Vol]9.6 g/dLLow13.0-17.0[facility] Comment on above:Performed By: #### CRP, BMP, CBC, ESR ####[place] [address] USALymphocytes (Bld) [#/Vol]1.7 10*3/uLNormal1.00-4.8The [facility] Hospital Physician GroupComment on above:Performed By: #### CRP, BMP, CBC, ESR ####[id number] USALymphocytes/100 WBC (Bld)19.1 %Normal.The [facility] Physician GroupComment on above:Performed By: #### CRP, BMP, CBC, ESR ####[id number] [facility]ITALMCH (RBC) [Entitic mass]30.1 eeCqrupw94.5-35.2The [facility] Physician GroupComment on above:Performed By: #### CRP, BMP, CBC, ESR ####[address] (RBC) [Entitic vol]90.1 fLNormal 83.5-101The [facility] Physician GroupComment on above:Performed By: #### CRP, BMP, CBC, ESR ####[place] [address] USAMean Corpuscular HGB Conc33.4 g/oRKxmktr97.5-35.6The [facility] Physician GroupComment on above:Performed By: #### CRP, BMP, CBC, ESR ####[place] [address] [place] Monocytes (Bld) [#/Vol]0.6 10*3/uLNormal0.0-0.8[facility] Comment on above:Performed By: #### CRP, BMP, CBC, ESR ####[place] [address] USAMonocytes/100 WBC (Bld)6.1 % Normal.The [facility] Physician GroupComment on above:Performed By: #### CRP, BMP, CBC, ESR ####[place] [address] USANeutrophils (Bld) [#/Vol]6.2 10*3/uLNormal1.8-7.7The [facility] Physician GroupComment on above:Performed By: #### CRP, BMP, CBC, ESR ####[place] [address] [place] Neutrophils/100 WBC (Bld)68.0 %Normal.The [facility] Physician GroupComment on above:Performed By: #### CRP, BMP, CBC, ESR ####[place] [address] USANRBC%0.1 /100{WBC}Normal0-0.5The [facility] Physician GroupComment on above:Performed By: #### CRP, BMP, CBC, ESR ####[address] Platelet mean volume (Bld) [Entitic vol]7.9 fLNormal6.6-10.1The [facility] Physician GroupComment on above:Performed By: #### CRP, BMP, CBC, ESR ####[address] Platelets (Bld) [#/Vol]270 10*3/sNWuxvjh566-973Mwz [facility] Comment on above:Performed By: #### CRP, BMP, CBC, ESR ####[place] [address] USARBC (Bld) [#/Vol]3.19 10*6/uL Low3.90-5.60[facility] Physician [facility] HospitalComment on above:Performed By: #### CRP, BMP, CBC, ESR ####[place] [address] USAWBC (Bld) [#/Vol]9.1 10*3/uLNormal4.1-10.5The [facility] Physician GroupComment on above:Performed By: #### CRP, BMP, CBC, ESR ####[place] [address] USACreatinine [Mass/volume] in Serum or PlasmaOrdered By: Sandip Bunting on 06-06-2024 Creatinine [Mass/Vol]Creatinine [Mass/volume] in Serum or Plasma0.70-1.30 [facility] Medical CenterEosinophils Auto (Bld) [#/Vol]Ordered By: Sandip Bunting on 78-88-6912Wetogthfxyc (Bld) [#/Vol]Automated eosinophil count High0.0-0.45[facility] Medical CenterEosinophils/100 WBC Auto (Bld) Ordered By: Sandip Bunting on 30-78-0924Uminwcxvvtw/100 WBC (Bld)Automated eosinophil %.[facility] Medical CenterErythrocyte Sedimentation Rateon 21-20-7262IBA (Bld) [Velocity]72 mm/hHigh0-19[facility] Comment on above:Result Comment: PERFORMED BY:[facility] [place], [place] [phone] MEDICAL DIRECTORMOKAIT CATES M.D.Performed By: #### CRP, BMP, CBC, ESR ####[facility] [place] [address] [facility] Erythrocyte distribution width Auto (RBC) [Ratio]Ordered By: Sandip Bunting on 38-82-2927Xwnhzyedjwb distribution width (RBC) [Ratio]Erythrocyte distribution width [Ratio] by Automated edrzpZunb77.0-14.8[facility] Erythrocyte sedimentation rate by Photometric methodOrdered By: Sandip Bunting on 68-02-8941NZE Photometric method (Bld) [Velocity]Erythrocyte sedimentation rate by Photometric methodHigh0-19[facility] Medical CenterGlucose [Mass/volume] in Serum or PlasmaOrdered By: Sandip Bunting on 30-85-4117Jqnscfm [Mass/Vol]Glucose [Mass/volume] in Serum or Hvkeuq40-201WfddzrkrfUniversity Hospitals Ahuja Medical CenterComment on above:ADA recommended reference rangeRandom Glucose Reference Range is dependent on time and content of last meal. Glucose of more than 200 mg/dL in a nonstressed, ambulatory subject supports the diagnosisof Diabetes Mellitus.Hematocrit Auto (Bld) [Volume fraction]Ordered By: Sandip Bunting on 24-88-6146Etnxctfles (Bld) [Volume fraction]Hematocrit [Volume Fraction] of Blood by Automated hnutzTvr67.8-50.0[facility] Medical CenterHemoglobin [Mass/volume] in BloodOrdered By: Sandip Bunting on 06-06-2024 Hemoglobin (Bld) [Mass/Vol]Hemoglobin [Mass/volume] in TpoumEfk35.0-17.0 [facility] Medical CenterLeukocytes [#/volume] corrected for nucleated erythrocytes in Blood by Automated counOrdered By: Sandip Bunting on 06-06-2024 WBC corrected for nucl RBC Auto (Bld) [#/Vol]Leukocytes [#/volume] corrected for nucleated erythrocytes in Blood by Automated coun4.1-10.5FCleveland Clinic FoundationLymphocytes Auto (Bld) [#/Vol]Ordered By: Sandip Bunting on 93-88-5104Inoiwticixe (Bld) [#/Vol]Lymphocytes [#/volume] in Blood by Automated count1.00-4.8[facility]ja Medical CenterLymphocytes/100 WBC Auto (Bld) Ordered By: Sandip Bunting on 58-54-1904Wloiqgsfzkr/100 WBC (Bld)Lymphocytes/100 leukocytes in Blood by Automated count.[facility] Medical CenterMCH Auto (RBC) [Entitic mass]Ordered By: Sandip Bunting on 60-33-5650IBI (RBC) [Entitic mass]MCH [Entitic mass] by Automated count27.5-35.2FCleveland Clinic FoundationMCHC Auto (RBC) [Mass/Vol]Ordered By: Sandip Bunting on 06-06-2024 MCHC (RBC) [Mass/Vol]MCHC [Mass/volume] by Automated count32.5-35.6FCleveland Clinic FoundationMCV Auto (RBC) [Entitic vol]Ordered By: Sandip Bunting on 49-40-3949AOF (RBC) [Entitic vol]MCV [Entitic volume] by Automated count83.5-101 [facility] Medical CenterMonocytes Auto (Bld) [#/Vol]Ordered By: Sandip Bunting on 84-39-3753Fuwcrbhbv (Bld) [#/Vol]Automated blood monocyte count 0.0-0.8[facility] Medical CenterMonocytes/100 WBC Auto (Bld)Ordered By: Sandip Bunting on 71-54-3191Knhhjkeqt/100 WBC (Bld)Automated monocyte %. [facility] Medical CenterNeutrophils Auto (Bld) [#/Vol]Ordered By: Sandip Bunting on 99-21-8561Pgovzrpvzoh (Bld) [#/Vol]Neutrophils [#/volume] in Blood by Automated count1.8-7.7FCleveland Clinic FoundationNeutrophils/100 WBC Auto (Bld)Ordered By: Sandip Bunting on 45-39-2758Fuykxdvzlai/100 WBC (Bld) Automated neutrophil %.[facility] Medical CenterNo Panel Information Ordered By: Sandip Bunting on 92-72-5949Sortfnewy GFR (CKD-EPI)> 60.0 mL/Min [facility] Medical CenterPharmacy Creatinine Clearance (ChemN/AFCleveland Clinic Foundation> 60.0 mL/MinUniversity Hospitals Ahuja Medical CenterN/A [facility] Medical CenterNucleated erythrocytes [Presence] in Blood by Automated countOrdered By: Sandip Bunting on 36-11-2765Blstrptmn RBC Auto Ql (Bld)Nucleated erythrocytes [Presence] in Blood by Automated count0-0.5FCleveland Clinic FoundationPlatelet mean volume Auto (Bld) [Entitic vol]Ordered By: Sandip Bunting on 35-90-4319Ifjugbjf mean volume (Bld) [Entitic vol]Platelet mean volume [Entitic volume] in Blood by Automated count6.6-10.1FCleveland Clinic FoundationPlatelets Auto (Bld) [#/Vol]Ordered By: Sandip Bunting on 89-73-7882Xaeekzxov (Bld) [#/Vol]Platelets [#/volume] in Blood by Automated edawe020-716LyultwlfoUniversity Hospitals Ahuja Medical CenterPotassium [Moles/volume] in Serum or PlasmaOrdered By: Sandip Bunting on 85-57-2151Rdalshfkh [Moles/Vol]Potassium [Moles/volume] in Serum or Plasma3.5-5.1FCleveland Clinic FoundationRBC Auto (Bld) [#/Vol]Ordered By: Sandip Bunting on 65-48-5174JOV (Bld) [#/Vol] Erythrocytes [#/volume] in Blood by Automated countLow3.90-5.60Mart[facility] Ferry Hospitalerum or plasma anion gap determinationOrdered By: Sandip Bunting on 26-94-0507Xvcls gap [Moles/Vol]Serum or plasma anion gap determination6.0-15.0[facility] Ferry Hospitalodium [Moles/volume] in Serum or PlasmaOrdered By: Sandip Bunting on 01-47-9381Rwrima [Moles/Vol]Sodium [Moles/volume] in Serum or Gfkuff012-480McbihabdrUniversity Hospitals Ahuja Medical CenterUrea nitrogen [Mass/volume] in Serum or PlasmaOrdered By: Sandip Bunting on 96-87-1040Ljqk nitrogen [Mass/Vol]Urea nitrogen [Mass/volume] in Serum or Plasma 09-28[facility] Medical CenterWBC Auto (Bld) [#/Vol]Ordered By: Sandip Aguirre on 84-53-3793ZWC (Bld) [#/Vol]Leukocytes [#/volume] in Blood by Automated count4.1-10.5FCleveland Clinic FoundationUrology Office/Clinic Noteon 14-31-5168Lddyipm Office/Clinic NoteUrology Office/Clinic Note Chief Complaint New [...] [facility]. Subsequently admitted to [facility] [place]/[facility]-03/15/2024 for LIS secondary to acute urinary [...] patient has indwelling cath Patient resides at [facility] for rehab. Reports his cath has been [...] perioperative complications. Lumbar spine MRI 04/03/2024 at [facility] for prostate sizing -Schedule cystoscopy. The risks [...] BPH medications. -See #1 3. Anticoagulated (Z79.01: nursing home (current) use of anticoagulants) On Eliquis for [...] technique, single interspace; lumbar (wi (more content notincluded)...[facility] Cleveland Medical CenterComment on above:Result Comment: Electronically Signed By: Melina LECHUGA, Ambar\.br\Date and Time Signed: 06/02/24 14:35 EDTB-Type Natriuretic Peptideon 05-28-2024 Natriuretic peptide B (Bld) [Mass/Vol]407.0 pg/mLHigh5-100The [facility] Hospital Physician GroupComment on above:Result Comment: PERFORMED BY:[facility] [place], [place] [phone] MEDICAL DIRECTORJAJA CATES M.D.Performed By: #### BNP, ESR, CBC, CRP ####[facility] [address] [place] [address] [facility] Basophils Auto (Bld) [#/Vol]Ordered By: Sandip Bunting on 54-37-8297Hfsrxsbos (Bld) [#/Vol]Automated basophil count0.0-0.2FC[facility] Foundation Basophils/100 WBC Auto (Bld)Ordered By: Sandip Bunting on 05-28-2024 Basophils/100 WBC (Bld)Automated basophil %.[facility]ja Medical CenterC reactive protein [Mass/volume] in Serum or PlasmaOrdered By: Sandip Bunting on 19-49-7224TAH [Mass/Vol]C reactive protein [Mass/volume] in Serum or PlasmaHigh 0.0-0.5FCleveland Clinic FoundationC-Reactive Proteinon 21-67-1051H- Reactive Protein8.8 mg/dLHigh0.0-0.5The [facility] Physician GroupComment on above:Result Comment: PERFORMED BY:[address] [place], [place] [phone] MEDICAL DIRECTORJAJA WHITE M.D.Performed By: #### BNP, ESR, CBC, CRP ####[id number] USAComplete Blood Count Auto Diff on 10-12-6790Kggvjkrdo (Bld) [#/Vol]0.1 10*3/uLNormal0.0-0.2The [facility] Physician GroupComment on above:Performed By: #### BNP, ESR, CBC, CRP ####[id number] [place] Basophils/100 WBC (Bld)1.0 %Normal.The [facility] Physician GroupComment on above:Performed By: #### BNP, ESR, CBC, CRP ####[id number] USAEosinophils (Bld) [#/Vol]0.5 10*3/uL High0.0-0.45The [facility] Physician GroupComment on above:Performed By: #### BNP, ESR, CBC, CRP ####[id number] USAEosinophils/100 WBC (Bld)8.2 %Normal.[facility] Comment on above:Performed By: #### BNP, ESR, CBC, CRP ####[id number] USAErythrocyte distribution width (RBC) [Ratio]16.7 %High12.0-14.8The [facility] Physician GroupComment on above: Performed By: #### BNP, ESR, CBC, CRP ####[id number] USAHematocrit (Bld) [Volume fraction]25.2 %Low 38.8-50.0The [facility] Physician GroupComment on above:Performed By: #### BNP, ESR, CBC, CRP ####[address] USAHemoglobin (Bld) [Mass/Vol]8.6 g/dLLow13.0-17.0The [facility] Physician GroupComment on above:Performed By: #### BNP, ESR, CBC, CRP ####[id number] USALymphocytes (Bld) [#/Vol]1.5 10*3/uLNormal1.00-4.8The [facility] Physician GroupComment on above: Performed By: #### BNP, ESR, CBC, CRP ####[id number] USALymphocytes/100 WBC (Bld)26.1 %Normal.The [facility] Physician GroupComment on above:Performed By: #### BNP, ESR, CBC, CRP ####[address] [facility]ITALMCH (RBC) [Entitic mass]30.7 gwDntive76.5-35.2The [facility] Physician GroupComment on above:Performed By: #### BNP, ESR, CBC, CRP ####[id number] [facility]OSPITALMCV (RBC) [Entitic vol]90.1 fLNormal 83.5-101The [facility] Physician GroupComment on above:Performed By: #### BNP, ESR, CBC, CRP ####[place] [id number] USAMean Corpuscular HGB Conc34.1 g/xQPbqihz37.5-35.6The [facility] Physician GroupComment on above:Performed By: #### BNP, ESR, CBC, CRP ####[id number] [place] Monocytes (Bld) [#/Vol]0.4 10*3/uLNormal0.0-0.8[facility] Comment on above:Performed By: #### BNP, ESR, CBC, CRP ####[place] [address] USAMonocytes/100 WBC (Bld)6.5 % Normal.The [facility] Physician GroupComment on above:Performed By: #### BNP, ESR, CBC, CRP ####[place] [address] USANeutrophils (Bld) [#/Vol]3.3 10*3/uLNormal1.8-7.7The [facility] Physician GroupComment on above:Performed By: #### BNP, ESR, CBC, CRP ####[address] Neutrophils/100 WBC (Bld)58.2 %Normal.The [facility] Physician GroupComment on above:Performed By: #### BNP, ESR, CBC, CRP ####[place] [address] USANRBC%0.1 /100{WBC}Normal0-0.5The [facility] Physician GroupComment on above:Performed By: #### BNP, ESR, CBC, CRP ####[address] Platelet mean volume (Bld) [Entitic vol]7.9 fLNormal6.6-10.1The [facility] Physician GroupComment on above:Performed By: #### BNP, ESR, CBC, CRP ####[address] Platelets (Bld) [#/Vol]186 10*3/nBQlmftc957-740Zug [facility] Comment on above:Performed By: #### BNP, ESR, CBC, CRP ####[place] [address] USARBC (Bld) [#/Vol]2.80 10*6/uL Low3.90-5.60The [facility] Physician GroupComment on above:Performed By: #### BNP, ESR, CBC, CRP ####[address] [place] [address] USAWBC (Bld) [#/Vol]5.7 10*3/uLNormal4.1-10.5The [facility] Physician GroupComment on above:Performed By: #### BNP, ESR, CBC, CRP ####[address] [address] USAEosinophils Auto (Bld) [#/Vol]Ordered By: Sandip Bunting on 95-37-1283Hdfvvrjtaaf (Bld) [#/Vol] Automated eosinophil countHigh0.0-0.45[facility] Eosinophils/100 WBC Auto (Bld)Ordered By: Sandip Bunting on 05-28-2024 Eosinophils/100 WBC (Bld)Automated eosinophil %.[facility]ja Medical CenterErythrocyte Sedimentation Rateon 42-48-2753VYZ (Bld) [Velocity]62 mm/hHigh 0-19The [facility] Physician GroupComment on above:Result Comment: PERFORMED BY:[address] [place], [place] [phone] MEDICAL DIRECTORJAJA CATES M.D.Performed By: #### BNP, ESR, CBC, CRP ####[address] [address] USAErythrocyte distribution width Auto (RBC) [Ratio]Ordered By: Sandip Bunting on 45-79-4531Eqquykheukf distribution width (RBC) [Ratio]Erythrocyte distribution width [Ratio] by Automated nxiebVuzv88.0-14.8[facility]huja Medical CenterErythrocyte sedimentation rate by Photometric methodOrdered By: Sandip Bunting on 03-17-1439QVP Photometric method (Bld) [Velocity]Erythrocyte sedimentation rate by Photometric methodHigh0-19[facility]ja Medical CenterHematocrit Auto (Bld) [Volume fraction]Ordered By: Sandip Bunting on 93-38-9016Rcensiyjhy (Bld) [Volume fraction]Hematocrit [Volume Fraction] of Blood by Automated yynlqWbf70.8-50.0[facility]huja Medical CenterHemoglobin [Mass/volume] in BloodOrdered By: Sandip Bunting on 30-36-9528Ifivjcowow (Bld) [Mass/Vol]Hemoglobin [Mass/volume] in PqftxYgi72.0-17.0[facility]ja Medical CenterLeukocytes [#/volume] corrected for nucleated erythrocytes in Blood by Automated counOrdered By: Sandip Bunting on 99-57-0309UKY corrected for nucl RBC Auto (Bld) [#/Vol]Leukocytes [#/volume] corrected for nucleated erythrocytes in Blood by Automated coun4.1-10.5FC[facility] Lymphocytes Auto (Bld) [#/Vol]Ordered By: Sandip Bunting on 05-28-2024 Lymphocytes (Bld) [#/Vol]Lymphocytes [#/volume] in Blood by Automated count 1.00-4.8[facility]huja Medical CenterLymphocytes/100 WBC Auto (Bld)Ordered By: Sandip Bunting on 65-11-8196Mtudiifqcph/100 WBC (Bld)Lymphocytes/100 leukocytes in Blood by Automated count.[facility]huja Medical CenterMCH Auto (RBC) [Entitic mass]Ordered By: Sandip Bunting on 23-64-8603KUZ (RBC) [Entitic mass]MCH [Entitic mass] by Automated count27.5-35.2FCleveland Clinic FoundationMCHC Auto (RBC) [Mass/Vol]Ordered By: Sandip Bunting on 54-85-2496BHTT (RBC) [Mass/Vol]MCHC [Mass/volume] by Automated count32.5-35.6FCleveland Clinic FoundationMCV Auto (RBC) [Entitic vol]Ordered By: Sandip Bunting on 16-97-6276OAK (RBC) [Entitic vol]MCV [Entitic volume] by Automated count83.5-101 [facility] Medical CenterMonocytes Auto (Bld) [#/Vol]Ordered By: Sandip Bunting on 73-20-7857Hvzwzbczk (Bld) [#/Vol]Automated blood monocyte count 0.0-0.8[facility] Medical CenterMonocytes/100 WBC Auto (Bld)Ordered By: Sandip Bunting on 86-24-3038Clfmjfgoe/100 WBC (Bld)Automated monocyte %. [facility]ja Medical CenterNatriuretic peptide B [Mass/Vol]Ordered By: Sandip Bunting on 85-54-8413Bdljiewnvea peptide B (Bld) [Mass/Vol]BNP ser/plas High5-100[facility] Medical CenterNeutrophils Auto (Bld) [#/Vol]Ordered By: Sandip Bunting on 17-85-2990Tkafiuqxeim (Bld) [#/Vol]Neutrophils [#/volume] in Blood by Automated count1.8-7.7FC[facility] Foundation Neutrophils/100 WBC Auto (Bld)Ordered By: Sandip Bunting on 05-28-2024 Neutrophils/100 WBC (Bld)Automated neutrophil %.[facility] Medical CenterNucleated erythrocytes [Presence] in Blood by Automated countOrdered By: Sandip Bunting on 26-03-9056Dyxjgjaxt RBC Auto Ql (Bld)Nucleated erythrocytes [Presence] in Blood by Automated count0-0.5FC[facility] Platelet mean volume Auto (Bld) [Entitic vol]Ordered By: Sandip Bunting on 90-09-1086Oygiujsl mean volume (Bld) [Entitic vol]Platelet mean volume [Entitic volume] in Blood by Automated count6.6-10.1FC[facility] Platelets Auto (Bld) [#/Vol]Ordered By: Sandip Bunting on 75-05-5601Oliwkjpdd (Bld) [#/Vol]Platelets [#/volume] in Blood by Automated nozhn472-259SzitlggjrUniversity Hospitals Ahuja Medical CenterRBC Auto (Bld) [#/Vol]Ordered By: Sandip Bunting on 07-12-9547XUL (Bld) [#/Vol]Erythrocytes [#/volume] in Blood by Automated count Low3.90-5.60[facility] Medical CenterWBC Auto (Bld) [#/Vol]Ordered By: Sandip Bunting on 42-10-8499TJY (Bld) [#/Vol]Leukocytes [#/volume] in Blood by Automated count4.1-10.5FCleveland Clinic FoundationB-Type Natriuretic Peptideon 84-57-5221Hpnthoipdop peptide B (Bld) [Mass/Vol]300.0 pg/mLHigh5-100 [facility] Physician GroupComment on above:Result Comment: PERFORMED BY:[address] [place], [place] [phone] MEDICAL DIRECTORJAJA CATES M.D.Performed By: #### BNP, ESR, CRP, CBC ####[address] [address] USABasophils Auto (Bld) [#/Vol]Ordered By: Sandip Bunting on 05-21-2024 Basophils (Bld) [#/Vol]Automated basophil count0.0-0.2FC[facility] Clinic FoundationBasophils/100 WBC Auto (Bld)Ordered By: Sandip Bunting on 05-21-2024 Basophils/100 WBC (Bld)Automated basophil %.[facility] CenterC reactive protein [Mass/volume] in Serum or PlasmaOrdered By: Sandip Bunting on 52-57-2880RPX [Mass/Vol]C reactive protein [Mass/volume] in Serum or PlasmaHigh 0.0-0.5FCleveland Clinic FoundationC-Reactive Proteinon 48-75-5717K- Reactive Protein3.8 mg/dLHigh0.0-0.5[facility] Physician GroupComment on above:Result Comment: PERFORMED BY:[address] [address] [place], [place] [phone] MEDICAL DIRECTORJAJA WHITE M.D.Performed By: #### BNP, ESR, CRP, CBC ####[address] [address] USAComplete Blood Count Auto Diff on 10-49-0158Qmhrskquc (Bld) [#/Vol]0.0 10*3/uLNormal0.0-0.2The [facility] Physician GroupComment on above:Performed By: #### BNP, ESR, CRP, CBC ####[address] [address] [place] Basophils/100 WBC (Bld)1.1 %Normal.[facility] Physician GroupComment on above:Performed By: #### BNP, ESR, CRP, CBC ####[place] [address] USAEosinophils (Bld) [#/Vol]0.4 10*3/uL Normal0.0-0.45The [facility] Physician GroupComment on above:Performed By: #### BNP, ESR, CRP, CBC ####[place] [address] USAEosinophils/100 WBC (Bld)8.7 %Normal.[facility] Comment on above:Performed By: #### BNP, ESR, CRP, CBC ####[place] [address] USAErythrocyte distribution width (RBC) [Ratio]16.4 %High12.0-14.8[facility] Physician GroupComment on above: Performed By: #### BNP, ESR, CRP, CBC ####[place] [address] USAHematocrit (Bld) [Volume fraction]23.8 %Low 38.8-50.0[facility] Physician GroupComment on above:Performed By: #### BNP, ESR, CRP, CBC ####[place] [address] USAHemoglobin (Bld) [Mass/Vol]7.9 g/dLLow13.0-17.0The [facility] Physician GroupComment on above:Performed By: #### BNP, ESR, CRP, CBC ####[place] [id number] USALymphocytes (Bld) [#/Vol]1.5 10*3/uLNormal1.00-4.8[facility] Physician GroupComment on above: Performed By: #### BNP, ESR, CRP, CBC ####[place] [id number] USALymphocytes/100 WBC (Bld)36.1 %Normal.[facility] Physician GroupComment on above:Performed By: #### BNP, ESR, CRP, CBC ####[address] [place] [address] USAMCH (RBC) [Entitic mass]30.4 ogLuqywj83.5-35.2[facility] Physician GroupComment on above:Performed By: #### BNP, ESR, CRP, CBC ####[address] (RBC) [Entitic vol]90.8 fLNormal 83.5-101The [facility] Physician GroupComment on above:Performed By: #### BNP, ESR, CRP, CBC ####[place] [address] USAMean Corpuscular HGB Conc33.4 g/qDSjloaj60.5-35.6[facility] Physician GroupComment on above:Performed By: #### BNP, ESR, CRP, CBC ####[place] [address] [place] Monocytes (Bld) [#/Vol]0.4 10*3/uLNormal0.0-0.8[facility] Comment on above:Performed By: #### BNP, ESR, CRP, CBC ####[place] [address] USAMonocytes/100 WBC (Bld)9.5 % Normal.[facility] Physician GroupComment on above:Performed By: #### BNP, ESR, CRP, CBC ####[place] [address] USANeutrophils (Bld) [#/Vol]1.9 10*3/uLNormal1.8-7.7[facility] Physician GroupComment on above:Performed By: #### BNP, ESR, CRP, CBC ####[place] [address] [place] Neutrophils/100 WBC (Bld)44.6 %Normal.[facility] Physician GroupComment on above:Performed By: #### BNP, ESR, CRP, CBC ####[place] [address] USANRBC%0.2 /100{WBC}Normal0-0.5[facility] Physician GroupComment on above:Performed By: #### BNP, ESR, CRP, CBC ####[address] Platelet mean volume (Bld) [Entitic vol]7.5 fLNormal6.6-10.1[facility] Physician GroupComment on above:Performed By: #### BNP, ESR, CRP, CBC ####[address] Platelets (Bld) [#/Vol]185 10*3/pACdccdl530-771[facility] Comment on above:Performed By: #### BNP, ESR, CRP, CBC ####[place] [address] USARBC (Bld) [#/Vol]2.62 10*6/uL Low3.90-5.60[facility] Physician GroupComment on above:Performed By: #### BNP, ESR, CRP, CBC ####[place] [address] USAWBC (Bld) [#/Vol]4.2 10*3/uLNormal4.1-10.5[facility] Physician GroupComment on above:Performed By: #### BNP, ESR, CRP, CBC ####[place] [address] USAEosinophils Auto (Bld) [#/Vol]Ordered By: Sandip Aguirre on 98-89-1758Akavexkqpnv (Bld) [#/Vol] Automated eosinophil count0.0-0.45[facility] Eosinophils/100 WBC Auto (Bld)Ordered By: Sandip Aguirre on 05-21-2024 Eosinophils/100 WBC (Bld)Automated eosinophil %.[facility] CenterErythrocyte Sedimentation Rateon 58-03-6904XFX (Bld) [Velocity]35 mm/hHigh 0-19[facility] Physician GroupComment on above:Result Comment: PERFORMED BY:[address] [place], [place] [phone] MEDICAL DIRECTORJAJA CATES M.D.Performed By: #### BNP, ESR, CRP, CBC ####[facility] [address] [place] [address] [facility]OS[facility]ITALErythrocyte distribution width Auto (RBC) [Ratio]Ordered By: Sandip Bunsantiago on 49-70-2767Fvzkxjtwbts distribution width (RBC) [Ratio]Erythrocyte distribution width [Ratio] by Automated mligsSmeu13.0-14.8[facility]ja Medical CenterErythrocyte sedimentation rate by Photometric methodOrdered By: Sandip Bunting on 10-88-3084MNG Photometric method (Bld) [Velocity]Erythrocyte sedimentation rate by Photometric methodHigh0-19[facility] Medical CenterHematocrit Auto (Bld) [Volume fraction]Ordered By: Sandip Bunting on 36-50-5665Dihnozhvyf (Bld) [Volume fraction]Hematocrit [Volume Fraction] of Blood by Automated nmpamZtn29.8-50.0[facility] Medical CenterHemoglobin [Mass/volume] in BloodOrdered By: Sandip Bunting on 19-30-5719Cymgacprcg (Bld) [Mass/Vol]Hemoglobin [Mass/volume] in ZcddoJji31.0-17.0[facility] Medical CenterInfectious Disease Office/Clinic Noteon 12-91-9356Kvrnkshtkm Disease Office/Clinic NoteAssessment/Plan 1. Surgical wound dehiscence Plan: This time we will send orders over to discontinue midline. Would like repeat lab work on 05/28. CBC/basic metabolic profile, CRP, and sed rate. Will call results. Will see how he does off antibiotics. 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 [...] should have completed treatment on 05/17/2024. 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 Also has catheter for urinary retention. Has chronic lymphedema uses pumps at home. Admitted to [place] had MRI that showed fluid collection. History ofA-fib. Surgery was not done there due to need for cardiology services. Transferred to [facility] where he connected with cardiology. Actually went [...] Daily atorvastatin 40 m (more content not included)...[facility] HospitalLeukocytes [#/volume] corrected for nucleated erythrocytes in Blood by Automated counOrdered By: Sandip Aguirre on 91-84-2386ZXB corrected for nucl RBC Auto (Bld) [#/Vol]Leukocytes [#/volume] corrected for nucleated erythrocytes in Blood by Automated coun4.1-10.5FCleveland Clinic FoundationLymphocytes Auto (Bld) [#/Vol]Ordered By: Sandip Aguirre on 13-76-5718Fzkjwuikric (Bld) [#/Vol]Lymphocytes [#/volume] in Blood by Automated count1.00-4.8[facility]ja Medical CenterLymphocytes/100 WBC Auto (Bld)Ordered By: Sandip Bunting on 03-98-8890Jgjadxbxijo/100 WBC (Bld)Lymphocytes/100 leukocytes in Blood by Automated count.[facility]ja Medical CenterMCH Auto (RBC) [Entitic mass] Ordered By: Sandip Bunting on 84-67-0310IGY (RBC) [Entitic mass]MCH [Entitic mass] by Automated count27.5-35.2FCleveland Clinic FoundationMCHC Auto (RBC) [Mass/Vol]Ordered By: Sandip Bunting on 49-07-3966SJRN (RBC) [Mass/Vol] MCHC [Mass/volume] by Automated count32.5-35.6FC[facility] Clinic Foundation MCV Auto (RBC) [Entitic vol]Ordered By: Sandip Bunting on 34-80-0146HEH (RBC) [Entitic vol]MCV [Entitic volume] by Automated count83.5-101[facility] CenterMonocytes Auto (Bld) [#/Vol]Ordered By: Sandip Bunting on 10-56-0059Gbswamcfv (Bld) [#/Vol]Automated blood monocyte count0.0-0.8[facility] Medical CenterMonocytes/100 WBC Auto (Bld)Ordered By: Sandip Bunting on 97-61-3469Uhnmdwcvy/100 WBC (Bld)Automated monocyte %.[facility] Medical CenterNatriuretic peptide B [Mass/Vol]Ordered By: Sandip Bunting on 49-40-1632Ugawelvpdcc peptide B (Bld) [Mass/Vol]BNP ser/plasHigh5-100[facility] Medical CenterNeutrophils Auto (Bld) [#/Vol]Ordered By: Sandip Bunting on 71-57-4244Ebmvcjliinc (Bld) [#/Vol]Neutrophils [#/volume] in Blood by Automated count1.8-7.7FCleveland Clinic FoundationNeutrophils/100 WBC Auto (Bld)Ordered By: Sandip Bunting on 95-68-0074Tsqgdkeoxmr/100 WBC (Bld)Automated neutrophil %.[facility] Medical CenterNucleated erythrocytes [Presence] in Blood by Automated countOrdered By: Sandip Bunting on 62-02-7168Ztelalrhv RBC Auto Ql (Bld)Nucleated erythrocytes [Presence] in Blood by Automated count0-0.5 [facility]ja Medical CenterPlatelet mean volume Auto (Bld) [Entitic vol] Ordered By: Sandip Bunting on 77-84-7051Gvocokmh mean volume (Bld) [Entitic vol] Platelet mean volume [Entitic volume] in Blood by Automated count6.6-10.1 [facility] Medical CenterPlatelets Auto (Bld) [#/Vol]Ordered By: Sandip Bunting on 70-26-4706Kbzbgukfl (Bld) [#/Vol]Platelets [#/volume] in Blood by Automated kaplc210-078PkdnblxmdUniversity Hospitals Ahuja Medical CenterRBC Auto (Bld) [#/Vol] Ordered By: Sandip Bunting on 10-12-8897ARL (Bld) [#/Vol]Erythrocytes [#/volume] in Blood by Automated countLow3.90-5.60[facility] CenterWBC Auto (Bld) [#/Vol]Ordered By: Sandip Bunting on 64-33-5158JMX (Bld) [#/Vol] Leukocytes [#/volume] in Blood by Automated count4.1-10.5FCleveland Clinic FoundationB-Type Natriuretic Peptideon 69-48-3123Lbojnsyimng peptide B (Bld) [Mass/Vol]322.0 pg/mLHigh5-100[facility] Physician GroupComment on above: Result Comment: PERFORMED BY:[facility] [place], [place] [phone] MEDICAL DIRECTORJAJA WHITE M.D.Performed By: #### CBC, CRP, BNP, ESR ####[address] [place] [address] USABasophils Auto (Bld) [#/Vol] Ordered By: Sandip Bunting on 62-93-6835Wlhhjtlqx (Bld) [#/Vol]Automated basophil count0.0-0.2FCleveland Clinic FoundationBasophils/100 WBC Auto (Bld)Ordered By: Sandip Bunting on 04-95-5333Xplbefoto/100 WBC (Bld)Automated basophil %.[facility] CenterC reactive protein [Mass/volume] in Serum or PlasmaOrdered By: Sandip Aguirre on 89-24-4135HSZ [Mass/Vol]C reactive protein [Mass/volume] in Serum or PlasmaHigh0.0-0.5FCleveland Clinic FoundationC-Reactive Proteinon 27-26-3258K-Reactive Protein6.0 mg/dLHigh0.0-0.5[facility] Physician GroupComment on above:Result Comment: PERFORMED BY:[address] [place], [place] [phone] MEDICAL DIRECTORJAJA CATES M.D.Performed By: #### CBC, CRP, BNP, ESR ####[place] [id number] [facility] Complete Blood Count Auto Diffon 77-68-7018Cjswzvegk (Bld) [#/Vol]0.0 10*3/uL Normal0.0-0.2[facility] Physician GroupComment on above:Performed By: #### CBC, CRP, BNP, ESR ####[address] [address] USABasophils/100 WBC (Bld)0.9 %Normal.[facility] Comment on above:Performed By: #### CBC, CRP, BNP, ESR ####[address] [address] USAEosinophils (Bld) [#/Vol]0.5 10*3/uLHigh0.0-0.45[facility] Physician GroupComment on above:Performed By: #### CBC, CRP, BNP, ESR ####[address] [address] USAEosinophils/100 WBC (Bld)10.9 %Normal.[facility] Physician GroupComment on above:Performed By: #### CBC, CRP, BNP, ESR ####[address] [address] [facility] Erythrocyte distribution width (RBC) [Ratio]16.9 %High12.0-14.8[facility] Physician GroupComment on above:Performed By: #### CBC, CRP, BNP, ESR ####[place] [address] [place] Hematocrit (Bld) [Volume fraction]24.8 %Low38.8-50.0[facility] Physician GroupComment on above:Performed By: #### CBC, CRP, BNP, ESR ####[place] [address] USAHemoglobin (Bld) [Mass/Vol]8.3 g/dLLow13.0-17.0[facility] Physician GroupComment on above: Performed By: #### CBC, CRP, BNP, ESR ####[place] [address] USALymphocytes (Bld) [#/Vol]1.4 10*3/uLNormal 1.00-4.8[facility] Physician GroupComment on above:Performed By: #### CBC, CRP, BNP, ESR ####[place] [address] USALymphocytes/100 WBC (Bld)29.6 %Normal.[facility] Comment on above:Performed By: #### CBC, CRP, BNP, ESR ####[place] [id number] USAMCH (RBC) [Entitic mass]30.4 auBsxjcj94.5-35.2[facility] Physician GroupComment on above:Performed By: #### CBC, CRP, BNP, ESR ####[place] [id number] USAMCV (RBC) [Entitic vol]90.6 kBTgukog70.5-101[facility] Physician GroupComment on above:Performed By: #### CBC, CRP, BNP, ESR ####[place] [id number] USAMean Corpuscular HGB Conc33.5 g/rQUfdhwx92.5-35.6[facility] Physician GroupComment on above:Performed By: #### CBC, CRP, BNP, ESR ####[place] [address] USAMonocytes (Bld) [#/Vol]0.4 10*3/uL Normal0.0-0.8[facility] Physician GroupComment on above:Performed By: #### CBC, CRP, BNP, ESR ####[place] [address] USAMonocytes/100 WBC (Bld)9.0 %Normal.[facility] Comment on above:Performed By: #### CBC, CRP, BNP, ESR ####[place] [address] USANeutrophils (Bld) [#/Vol]2.3 10*3/uLNormal1.8-7.7[facility] Physician GroupComment on above:Performed By: #### CBC, CRP, BNP, ESR ####[place] [address] USANeutrophils/100 WBC (Bld)49.6 %Normal.[facility] Physician GroupComment on above:Performed By: #### CBC, CRP, BNP, ESR ####[place] [id number] USANRBC% 0.1 /100{WBC}Normal0-0.5[facility] Physician GroupComment on above:Performed By: #### CBC, CRP, BNP, ESR ####[place] [id number] USAPlatelet mean volume (Bld) [Entitic vol]7.7 fLNormal 6.6-10.1The [facility] Physician GroupComment on above:Performed By: #### CBC, CRP, BNP, ESR ####[place] [id number] USAPlatelets (Bld) [#/Vol]207 10*3/fRBdmfhh675-585Ghw [facility] Physician GroupComment on above:Performed By: #### CBC, CRP, BNP, ESR ####[address] [address] USARBC (Bld) [#/Vol]2.73 10*6/uLLow3.90-5.60[facility] Physician GroupComment on above:Performed By: #### CBC, CRP, BNP, ESR ####[address] [address] USAWBC (Bld) [#/Vol]4.7 10*3/uLNormal4.1-10.5[facility] Physician GroupComment on above:Performed By: #### CBC, CRP, BNP, ESR ####[address] [address] [place] Eosinophils Auto (Bld) [#/Vol]Ordered By: Sandip Bunting on 05-14-2024 Eosinophils (Bld) [#/Vol]Automated eosinophil countHigh0.0-0.45[facility] CenterEosinophils/100 WBC Auto (Bld)Ordered By: Sandip Bunting on 31-62-5632Mcbyizpuirh/100 WBC (Bld)Automated eosinophil %.[facility] Medical CenterErythrocyte Sedimentation Rateon 16-45-6102SZR (Bld) [Velocity]59 mm/hHigh0-19[facility] Physician GroupComment on above:Result Comment: PERFORMED BY:[address] [place], [place] [phone] MEDICAL DIRECTORJAJA CATES M.D. Performed By: #### CBC, CRP, BNP, ESR ####[address] [address] USAErythrocyte distribution width Auto (RBC) [Ratio]Ordered By: Sandip Bunting on 06-17-5400Ytgbnhqcdjv distribution width (RBC) [Ratio]Erythrocyte distribution width [Ratio] by Automated countHigh 12.0-14.8[facility] Medical CenterErythrocyte sedimentation rate by Photometric methodOrdered By: Sandip Bunting on 64-63-2429TNJ Photometric method (Bld) [Velocity]Erythrocyte sedimentation rate by Photometric methodHigh0-19 [facility] CenterHematocrit Auto (Bld) [Volume fraction]Ordered By: Sandip Bunting on 81-75-2667Tqcaprczwg (Bld) [Volume fraction]Hematocrit [Volume Fraction] of Blood by Automated fuyxgGwf28.8-50.0[facility] Medical CenterHemoglobin [Mass/volume] in BloodOrdered By: Sandip Bunting on 78-82-6420Lttpmzwfuf (Bld) [Mass/Vol]Hemoglobin [Mass/volume] in BloodLow 13.0-17.0[facility] Medical CenterLeukocytes [#/volume] corrected for nucleated erythrocytes in Blood by Automated counOrdered By: Sandip Bunting on 73-76-0269ONN corrected for nucl RBC Auto (Bld) [#/Vol]Leukocytes [#/volume] corrected for nucleated erythrocytes in Blood by Automated coun4.1-10.5FCleveland Clinic FoundationLymphocytes Auto (Bld) [#/Vol]Ordered By: Sandip Bunting on 84-31-4890Szyvwmgsspp (Bld) [#/Vol]Lymphocytes [#/volume] in Blood by Automated count1.00-4.8[facility] Medical CenterLymphocytes/100 WBC Auto (Bld)Ordered By: Sandip Bunting on 22-06-0505Wkifbwwmfjg/100 WBC (Bld) Lymphocytes/100 leukocytes in Blood by Automated count.[facility] CenterH Auto (RBC) [Entitic mass]Ordered By: Sandip Bunting on 49-84-5336DDU (RBC) [Entitic mass]MCH [Entitic mass] by Automated count27.5-35.2 [facility] CenterMCHC Auto (RBC) [Mass/Vol]Ordered By: Sandip Bunting on 76-71-1408GRWE (RBC) [Mass/Vol]MCHC [Mass/volume] by Automated count 32.5-35.6FCleveland Clinic FoundationMCV Auto (RBC) [Entitic vol]Ordered By: Sandip Bunting on 29-86-7399HHD (RBC) [Entitic vol]MCV [Entitic volume] by Automated count83.5-101[facility] CenterMonocytes Auto (Bld) [#/Vol]Ordered By: Sandip Bunting on 63-34-0534Qylxwnjuk (Bld) [#/Vol]Automated blood monocyte count0.0-0.8[facility] Medical CenterMonocytes/100 WBC Auto (Bld)Ordered By: Sandip Bunting on 87-24-1672Pydxuadxg/100 WBC (Bld) Automated monocyte %.[facility] Medical CenterNatriuretic peptide B [Mass/Vol]Ordered By: Sandip Bunting on 53-33-0683Umlthsbfunw peptide B (Bld) [Mass/Vol]BNP ser/plasHigh5-100[facility] Medical CenterNeutrophils Auto (Bld) [#/Vol]Ordered By: Sandip Bunting on 06-85-6905Anukcwyovfo (Bld) [#/Vol] Neutrophils [#/volume] in Blood by Automated count1.8-7.7FCleveland Clinic FoundationNeutrophils/100 WBC Auto (Bld)Ordered By: Sandip Bunting on 66-49-5542Chlfekciwat/100 WBC (Bld)Automated neutrophil %.[facility] Medical CenterNucleated erythrocytes [Presence] in Blood by Automated count Ordered By: Sandip Bunting on 28-09-2733Iaymsexqq RBC Auto Ql (Bld)Nucleated erythrocytes [Presence] in Blood by Automated count0-0.5FCleveland Clinic FoundationPlatelet mean volume Auto (Bld) [Entitic vol]Ordered By: Sandip Bunting on 75-60-1179Lxlfgwng mean volume (Bld) [Entitic vol]Platelet mean volume [Entitic volume] in Blood by Automated count6.6-10.1FCleveland Clinic FoundationPlatelets Auto (Bld) [#/Vol]Ordered By: Sandip Bunting on 07-11-7978Auojvbbig (Bld) [#/Vol]Platelets [#/volume] in Blood by Automated oizsj063-575FucsuxnfrUniversity Hospitals Ahuja Medical CenterRBC Auto (Bld) [#/Vol]Ordered By: Sandip Bunting on 97-22-6388XVR (Bld) [#/Vol]Erythrocytes [#/volume] in Blood by Automated countLow3.90-5.60[facility] Medical CenterWBC Auto (Bld) [#/Vol]Ordered By: Sandip Bunting on 01-62-8415TTD (Bld) [#/Vol]Leukocytes [#/volume] in Blood by Automated count4.1-10.5FC[facility] Foundation B-Type Natriuretic Peptideon 81-65-6304Ubhgdfevevk peptide B (Bld) [Mass/Vol] 356.0 pg/mLHigh5-100[facility] Physician GroupComment on above:Result Comment: PERFORMED BY:[place] [place], [place] [phone] MEDICAL DIRECTORJAJA CATES M.D. Performed By: #### ESR, CRP, BNP, CBC ####[place] [id number] [place] [address] USABasophils Auto (Bld) [#/Vol]Ordered By: Sandip Bunting on 23-46-0343Argdfdwcn (Bld) [#/Vol]Automated basophil count0.0-0.2 [facility] Medical CenterBasophils/100 WBC Auto (Bld)Ordered By: Sandip Bunting on 34-71-5278Cjuxrclgd/100 WBC (Bld)Automated basophil %.[facility] Medical CenterC reactive protein [Mass/volume] in Serum or Plasma Ordered By: Sandip Bunting on 88-21-1270HXV [Mass/Vol]C reactive protein [Mass/volume] in Serum or PlasmaHigh0.0-0.5FCleveland Clinic FoundationC- Reactive Proteinon 11-68-7432Z-Reactive Protein5.8 mg/dLHigh0.0-0.5[facility] Physician GroupComment on above:Result Comment: PERFORMED BY:[place] [address] [place], [place] [phone] MEDICAL DIRECTORJAJA CATES M.D.Performed By: #### ESR, CRP, BNP, CBC ####[address] [address] [facility] Complete Blood Count Auto Diffon 61-95-8388Zkssxdurk (Bld) [#/Vol]0.1 10*3/uL Normal0.0-0.2[facility] Physician GroupComment on above:Performed By: #### ESR, CRP, BNP, CBC ####[place] [address] USABasophils/100 WBC (Bld)1.3 %Normal.[facility] Comment on above:Performed By: #### ESR, CRP, BNP, CBC ####[place] [address] USAEosinophils (Bld) [#/Vol]0.4 10*3/uLNormal0.0-0.45[facility] Physician GroupComment on above:Performed By: #### ESR, CRP, BNP, CBC ####[place] [address] USAEosinophils/100 WBC (Bld)7.9 %Normal.[facility] Physician GroupComment on above:Performed By: #### ESR, CRP, BNP, CBC ####[address] Erythrocyte distribution width (RBC) [Ratio]17.2 %High12.0-14.8[facility] Physician GroupComment on above:Performed By: #### ESR, CRP, BNP, CBC ####[place] [address] [place] Hematocrit (Bld) [Volume fraction]26.9 %Low38.8-50.0[facility] Physician GroupComment on above:Performed By: #### ESR, CRP, BNP, CBC ####[place] [address] USAHemoglobin (Bld) [Mass/Vol]8.8 g/dLLow13.0-17.0[facility] Physician GroupComment on above: Performed By: #### ESR, CRP, BNP, CBC ####[place] [address] USALymphocytes (Bld) [#/Vol]1.3 10*3/uLNormal 1.00-4.8[facility] Physician GroupComment on above:Performed By: #### ESR, CRP, BNP, CBC ####[place] [id number] USALymphocytes/100 WBC (Bld)29.0 %Normal.[facility] Comment on above:Performed By: #### ESR, CRP, BNP, CBC ####[place] [id number] [facility] (RBC) [Entitic mass]30.0 tmVueycu22.5-35.2The [facility] Physician GroupComment on above:Performed By: #### ESR, CRP, BNP, CBC ####[place] [id number] [facility] (RBC) [Entitic vol]91.3 qRPjexuu48.5-101The [facility] Physician GroupComment on above:Performed By: #### ESR, CRP, BNP, CBC ####[place] [address] USAMean Corpuscular HGB Conc32.9 g/pIHduoim08.5-35.6The [facility] Physician GroupComment on above:Performed By: #### ESR, CRP, BNP, CBC ####[place] [address] USAMonocytes (Bld) [#/Vol]0.3 10*3/uL Normal0.0-0.8The [facility] Physician GroupComment on above:Performed By: #### ESR, CRP, BNP, CBC ####[place] [address] USAMonocytes/100 WBC (Bld)6.4 %Normal.[facility] Comment on above:Performed By: #### ESR, CRP, BNP, CBC ####[place] [address] USANeutrophils (Bld) [#/Vol]2.6 10*3/uLNormal1.8-7.7The [facility] Physician GroupComment on above:Performed By: #### ESR, CRP, BNP, CBC ####[place] [address] USANeutrophils/100 WBC (Bld)55.4 %Normal.[facility] Physician GroupComment on above:Performed By: #### ESR, CRP, BNP, CBC ####[place] [address] USANRBC% 0.1 /100{WBC}Normal0-0.5The [facility] Physician GroupComment on above:Performed By: #### ESR, CRP, BNP, CBC ####[place] [address] USAPlatelet mean volume (Bld) [Entitic vol]7.6 fLNormal 6.6-10.1The [facility] Physician GroupComment on above:Performed By: #### ESR, CRP, BNP, CBC ####[place] [address] USAPlatelets (Bld) [#/Vol]192 10*3/fLNnodsw326-327Xbn [facility] Physician GroupComment on above:Performed By: #### ESR, CRP, BNP, CBC ####[place] [address] USARBC (Bld) [#/Vol]2.95 10*6/uLLow3.90-5.60The [facility] Physician GroupComment on above:Performed By: #### ESR, CRP, BNP, CBC ####[place] [address] USAWBC (Bld) [#/Vol]4.7 10*3/uLNormal4.1-10.5The [facility] Physician GroupComment on above:Performed By: #### ESR, CRP, BNP, CBC ####[place] [address] [place] Eosinophils Auto (Bld) [#/Vol]Ordered By: Sandip Aguirre on 05-07-2024 Eosinophils (Bld) [#/Vol]Automated eosinophil count0.0-0.45[facility] CenterEosinophils/100 WBC Auto (Bld)Ordered By: Sandip Aguirre on 89-78-4632Yuyxtzyxdrq/100 WBC (Bld)Automated eosinophil %.[facility] CenterErythrocyte Sedimentation Rateon 57-48-7080RLN (Bld) [Velocity]65 mm/hHigh0-19The [facility] Physician GroupComment on above:Result Comment: PERFORMED BY:[facility] [place], [place] [phone] MEDICAL DIRECTORJAJA CATES M.D. Performed By: #### ESR, CRP, BNP, CBC ####[facility] [place] [address] USAErythrocyte distribution width Auto (RBC) [Ratio]Ordered By: Sandip Bunting on 82-00-4932Mffzrguoyxw distribution width (RBC) [Ratio]Erythrocyte distribution width [Ratio] by Automated countHigh 12.0-14.8[facility] Medical CenterErythrocyte sedimentation rate by Photometric methodOrdered By: Sandip Bunting on 36-55-0153IWF Photometric method (Bld) [Velocity]Erythrocyte sedimentation rate by Photometric methodHigh0-19 [facility] CenterHematocrit Auto (Bld) [Volume fraction]Ordered By: Sandip Bunting on 64-03-5497Pmllbvvidm (Bld) [Volume fraction]Hematocrit [Volume Fraction] of Blood by Automated jzibzUgv05.8-50.0[facility] CenterHemoglobin [Mass/volume] in BloodOrdered By: Sandip Bunting on 60-91-0822Fhbcfyfhgm (Bld) [Mass/Vol]Hemoglobin [Mass/volume] in BloodLow 13.0-17.0[facility] Medical CenterLeukocytes [#/volume] corrected for nucleated erythrocytes in Blood by Automated counOrdered By: Sandip Bunting on 26-99-3763SHE corrected for nucl RBC Auto (Bld) [#/Vol]Leukocytes [#/volume] corrected for nucleated erythrocytes in Blood by Automated coun4.1-10.5FCleveland Clinic FoundationLymphocytes Auto (Bld) [#/Vol]Ordered By: Sandip Bunting on 74-70-1331Ohjmkcpzhqn (Bld) [#/Vol]Lymphocytes [#/volume] in Blood by Automated count1.00-4.8[facility] CenterLymphocytes/100 WBC Auto (Bld)Ordered By: Sandip Bunting on 28-01-8717Bxumurclyez/100 WBC (Bld) Lymphocytes/100 leukocytes in Blood by Automated count.[facility] CenterH Auto (RBC) [Entitic mass]Ordered By: Sandip Bunting on 50-86-4442DPW (RBC) [Entitic mass]MCH [Entitic mass] by Automated count27.5-35.2 [facility] Medical CenterMCHC Auto (RBC) [Mass/Vol]Ordered By: Sandip Bunting on 89-36-8140KSEI (RBC) [Mass/Vol]MCHC [Mass/volume] by Automated count 32.5-35.6FCleveland Clinic FoundationMCV Auto (RBC) [Entitic vol]Ordered By: Sandip Bunting on 32-50-8593GWG (RBC) [Entitic vol]MCV [Entitic volume] by Automated count83.5-101[facility] Medical CenterMonocytes Auto (Bld) [#/Vol]Ordered By: Sandip Bunting on 37-62-2401Ijgknyroj (Bld) [#/Vol]Automated blood monocyte count0.0-0.8[facility] Medical CenterMonocytes/100 WBC Auto (Bld)Ordered By: Sandip Bunting on 25-24-2027Pgaaeohgh/100 WBC (Bld) Automated monocyte %.[facility] Medical CenterNatriuretic peptide B [Mass/Vol]Ordered By: Sandip Bunting on 49-58-1934Jurnzkvbsuc peptide B (Bld) [Mass/Vol]BNP ser/plasHigh5-100[facility] Medical CenterNeutrophils Auto (Bld) [#/Vol]Ordered By: Sandip Bunting on 53-86-9651Sxuhywtbsrd (Bld) [#/Vol] Neutrophils [#/volume] in Blood by Automated count1.8-7.7FCleveland Clinic FoundationNeutrophils/100 WBC Auto (Bld)Ordered By: Sandip Bunting on 80-87-1260Ehfuglhgitc/100 WBC (Bld)Automated neutrophil %.[facility] Medical CenterNucleated erythrocytes [Presence] in Blood by Automated count Ordered By: Sandip Bunting on 17-58-6459Mlsmiqpvy RBC Auto Ql (Bld)Nucleated erythrocytes [Presence] in Blood by Automated count0-0.5FCleveland Clinic FoundationPlatelet mean volume Auto (Bld) [Entitic vol]Ordered By: Sandip Bunting on 61-11-6867Itbzfzoe mean volume (Bld) [Entitic vol]Platelet mean volume [Entitic volume] in Blood by Automated count6.6-10.1FCleveland Clinic FoundationPlatelets Auto (Bld) [#/Vol]Ordered By: Sandip Bunting on 72-18-6271Mmdjhgwiq (Bld) [#/Vol]Platelets [#/volume] in Blood by Automated csrue269-077RbbtafobtUniversity Hospitals Ahuja Medical CenterRBC Auto (Bld) [#/Vol]Ordered By: Sandip Bunting on 67-35-3649DJD (Bld) [#/Vol]Erythrocytes [#/volume] in Blood by Automated countLow3.90-5.60[facility] Medical CenterWBC Auto (Bld) [#/Vol]Ordered By: Sandip Bunting on 72-11-1769PLQ (Bld) [#/Vol]Leukocytes [#/volume] in Blood by Automated count4.1-10.5FCleveland Clinic Foundation B-Type Natriuretic Peptideon 24-70-3021Fnvjrwrzsdp peptide B (Bld) [Mass/Vol] 269.0 pg/mLHigh5-100The [facility] Hospital Physician GroupComment on above:Result Comment: PERFORMED BY:[facility] [place], [place] [phone] MEDICAL DIRECTORJAJA CATES M.D. Performed By: #### CBC, BNP, ESR, CRP ####[place] [address] [place] [address] USABasophils Auto (Bld) [#/Vol]Ordered By: Sandip Bunting on 59-61-9287Buebuyvkm (Bld) [#/Vol]Automated basophil count0.0-0.2 [facility] Medical CenterBasophils/100 WBC Auto (Bld)Ordered By: Sandip Bunting on 32-35-4859Xdvmexlhu/100 WBC (Bld)Automated basophil %.[facility] Medical CenterC reactive protein [Mass/volume] in Serum or Plasma Ordered By: Sandip Aguirre on 86-23-2086QCS [Mass/Vol]C reactive protein [Mass/volume] in Serum or PlasmaHigh0.0-0.5FCleveland Clinic FoundationC- Reactive Proteinon 79-03-8642A-Reactive Protein4.6 mg/dLHigh0.0-0.5The [facility] Physician GroupComment on above:Result Comment: PERFORMED BY:[address] [place], [place] [phone] MEDICAL DIRECTORJAJA CATES M.D.Performed By: #### CBC, BNP, ESR, CRP ####[place] [id number] [facility] Complete Blood Count Auto Diffon 23-12-4710Vqxqkcfhx (Bld) [#/Vol]0.1 10*3/uL Normal0.0-0.2The [facility] Hospital Physician GroupComment on above:Performed By: #### CBC, BNP, ESR, CRP ####[address] [address] USABasophils/100 WBC (Bld)1.3 %Normal.[facility] Comment on above:Performed By: #### CBC, BNP, ESR, CRP ####[address] [address] USAEosinophils (Bld) [#/Vol]0.4 10*3/uLNormal0.0-0.45The [facility] Physician GroupComment on above:Performed By: #### CBC, BNP, ESR, CRP ####[place] [id number] USAEosinophils/100 WBC (Bld)7.5 %Normal.The [facility] Physician GroupComment on above:Performed By: #### CBC, BNP, ESR, CRP ####[place] [address] [facility] Erythrocyte distribution width (RBC) [Ratio]17.6 %High12.0-14.8The [facility] Physician GroupComment on above:Performed By: #### CBC, BNP, ESR, CRP ####[place] [address] [place] Hematocrit (Bld) [Volume fraction]26.4 %Low38.8-50.0The [facility] Physician GroupComment on above:Performed By: #### CBC, BNP, ESR, CRP ####[place] [address] USAHemoglobin (Bld) [Mass/Vol]8.8 g/dLLow13.0-17.0The [facility] Physician GroupComment on above: Performed By: #### CBC, BNP, ESR, CRP ####[place] [address] USALymphocytes (Bld) [#/Vol]1.9 10*3/uLNormal 1.00-4.8The [facility] Physician GroupComment on above:Performed By: #### CBC, BNP, ESR, CRP ####[place] [address] USALymphocytes/100 WBC (Bld)35.3 %Normal.[facility] Comment on above:Performed By: #### CBC, BNP, ESR, CRP ####[address] StreetMCH (RBC) [Entitic mass]30.7 erTrybpx67.5-35.2The [facility] Physician GroupComment on above:Performed By: #### CBC, BNP, ESR, CRP ####[place] [address] USAMCV (RBC) [Entitic vol]92.5 lHIcpdoc79.5-101The [facility] Physician GroupComment on above:Performed By: #### CBC, BNP, ESR, CRP ####[place] [address] USAMean Corpuscular HGB Conc33.1 g/gLPldsjz07.5-35.6The [facility] Physician GroupComment on above:Performed By: #### CBC, BNP, ESR, CRP ####[place] [address] USAMonocytes (Bld) [#/Vol]0.4 10*3/uL Normal0.0-0.8The [facility] Physician GroupComment on above:Performed By: #### CBC, BNP, ESR, CRP ####[place] [address] USAMonocytes/100 WBC (Bld)7.1 %Normal.[facility] Comment on above:Performed By: #### CBC, BNP, ESR, CRP ####[place] [address] USANeutrophils (Bld) [#/Vol]2.6 10*3/uLNormal1.8-7.7The [facility] Physician GroupComment on above:Performed By: #### CBC, BNP, ESR, CRP ####[place] [address] USANeutrophils/100 WBC (Bld)48.8 %Normal.The [facility] Physician GroupComment on above:Performed By: #### CBC, BNP, ESR, CRP ####[place] [address] USANRBC% 0.1 /100{WBC}Normal0-0.5The [facility] Physician GroupComment on above:Performed By: #### CBC, BNP, ESR, CRP ####[place] [address] USAPlatelet mean volume (Bld) [Entitic vol]7.3 fLNormal 6.6-10.1The [facility] Physician GroupComment on above:Performed By: #### CBC, BNP, ESR, CRP ####[place] [address] USAPlatelets (Bld) [#/Vol]238 10*3/mVCfbizl825-343Sgb [facility] Physician GroupComment on above:Performed By: #### CBC, BNP, ESR, CRP ####[place] [address] [place] [address] USARBC (Bld) [#/Vol]2.85 10*6/uLLow3.90-5.60The [facility] Physician GroupComment on above:Performed By: #### CBC, BNP, ESR, CRP ####[address] [address] USAWBC (Bld) [#/Vol]5.4 10*3/uLNormal4.1-10.5The [facility] Physician GroupComment on above:Performed By: #### CBC, BNP, ESR, CRP ####[address] [address] [place] Eosinophils Auto (Bld) [#/Vol]Ordered By: Sandip Bunting on 04-30-2024 Eosinophils (Bld) [#/Vol]Automated eosinophil count0.0-0.45[facility] CenterEosinophils/100 WBC Auto (Bld)Ordered By: Sandip Bunting on 88-34-7954Pldbuyvyjte/100 WBC (Bld)Automated eosinophil %.[facility] Medical CenterErythrocyte Sedimentation Rateon 87-93-6001TEN (Bld) [Velocity]57 mm/hHigh0-19The [facility] Physician GroupComment on above:Result Comment: PERFORMED BY:[address] [place], [place] [phone] MEDICAL DIRECTORJAJA CATES M.D. Performed By: #### CBC, BNP, ESR, CRP ####[address] [address] USAErythrocyte distribution width Auto (RBC) [Ratio]Ordered By: Sandip Bunting on 71-30-0378Xzcslhawmdg distribution width (RBC) [Ratio]Erythrocyte distribution width [Ratio] by Automated countHigh 12.0-14.8[facility] Medical CenterErythrocyte sedimentation rate by Photometric methodOrdered By: Sandip Bunting on 52-81-7961TRR Photometric method (Bld) [Velocity]Erythrocyte sedimentation rate by Photometric methodHigh0-19 [facility] Medical CenterHematocrit Auto (Bld) [Volume fraction]Ordered By: Sandip Bunting on 05-87-1823Uekqyrnkjr (Bld) [Volume fraction]Hematocrit [Volume Fraction] of Blood by Automated mdghdByr80.8-50.0[facility] Medical CenterHemoglobin [Mass/volume] in BloodOrdered By: Sandip Bunting on 78-52-8160Jpugkjfihy (Bld) [Mass/Vol]Hemoglobin [Mass/volume] in BloodLow 13.0-17.0[facility] Medical CenterLeukocytes [#/volume] corrected for nucleated erythrocytes in Blood by Automated counOrdered By: Sandip Bunting on 30-44-5866VYF corrected for nucl RBC Auto (Bld) [#/Vol]Leukocytes [#/volume] corrected for nucleated erythrocytes in Blood by Automated coun4.1-10.5FCleveland Clinic FoundationLymphocytes Auto (Bld) [#/Vol]Ordered By: Sandip Bunting on 97-74-5533Fgsgldhtouo (Bld) [#/Vol]Lymphocytes [#/volume] in Blood by Automated count1.00-4.8[facility] Medical CenterLymphocytes/100 WBC Auto (Bld)Ordered By: Sandip Bunting on 67-42-6210Igtgtyjvyxq/100 WBC (Bld) Lymphocytes/100 leukocytes in Blood by Automated count.[facility] CenterH Auto (RBC) [Entitic mass]Ordered By: Sandip Bunting on 01-38-3919TNC (RBC) [Entitic mass]MCH [Entitic mass] by Automated count27.5-35.2 [facility] Medical CenterMCHC Auto (RBC) [Mass/Vol]Ordered By: Sandip Bunting on 70-40-1318NMAN (RBC) [Mass/Vol]MCHC [Mass/volume] by Automated count 32.5-35.6FCleveland Clinic FoundationMCV Auto (RBC) [Entitic vol]Ordered By: Sandip Bunting on 88-73-3045IFA (RBC) [Entitic vol]MCV [Entitic volume] by Automated count83.5-101[facility] Medical CenterMonocytes Auto (Bld) [#/Vol]Ordered By: Sandip Bunting on 12-65-1735Lxmtfjqjz (Bld) [#/Vol]Automated blood monocyte count0.0-0.8[facility] Medical CenterMonocytes/100 WBC Auto (Bld)Ordered By: Sandip Bunting on 16-76-6033Yoerlvesb/100 WBC (Bld) Automated monocyte %.[facility] Medical CenterNatriuretic peptide B [Mass/Vol]Ordered By: Sandip Bunting on 98-34-7957Ifyhrmhyplq peptide B (Bld) [Mass/Vol]BNP ser/plasHigh5-100[facility] Medical CenterNeutrophils Auto (Bld) [#/Vol]Ordered By: Sandip Bunting on 55-55-1194Wykvlxkzbdv (Bld) [#/Vol] Neutrophils [#/volume] in Blood by Automated count1.8-7.7FCleveland Clinic FoundationNeutrophils/100 WBC Auto (Bld)Ordered By: Sandip Bunting on 80-21-9872Qvseehjwfwq/100 WBC (Bld)Automated neutrophil %.[facility] Medical CenterNucleated erythrocytes [Presence] in Blood by Automated count Ordered By: Sandip Bunting on 33-67-5175Skovmwezb RBC Auto Ql (Bld)Nucleated erythrocytes [Presence] in Blood by Automated count0-0.5FCleveland Clinic FoundationPlatelet mean volume Auto (Bld) [Entitic vol]Ordered By: Sandip Bunting on 21-74-7831Jsxidkql mean volume (Bld) [Entitic vol]Platelet mean volume [Entitic volume] in Blood by Automated count6.6-10.1FCleveland Clinic FoundationPlatelets Auto (Bld) [#/Vol]Ordered By: Sandip Bunting on 75-82-0452Gcbhqxcwj (Bld) [#/Vol]Platelets [#/volume] in Blood by Automated gawrb847-752YqmcpgohhUniversity Hospitals Ahuja Medical CenterRBC Auto (Bld) [#/Vol]Ordered By: Sandip Bunting on 51-17-2058RIF (Bld) [#/Vol]Erythrocytes [#/volume] in Blood by Automated countLow3.90-5.60[facility] Medical CenterWBC Auto (Bld) [#/Vol]Ordered By: Sandip Bunting on 27-71-3861PAF (Bld) [#/Vol]Leukocytes [#/volume] in Blood by Automated count4.1-10.5FC[facility] Foundation B-Type Natriuretic Peptideon 69-15-5769Ykjcqlerqce peptide B (Bld) [Mass/Vol] 216.0 pg/mLHigh5-100The [facility] Physician GroupComment on above:Result Comment: PERFORMED BY:[place] [address] [place], [place] [phone] MEDICAL DIRECTORJAJA CATES M.D. Performed By: #### BNP, CRP, CBC, ESR ####[facility] [address] [place] [address] USABasophils Auto (Bld) [#/Vol]Ordered By: Sandip Bunting on 79-88-3981Dtgktdgop (Bld) [#/Vol]Automated basophil count0.0-0.2 [facility] Medical CenterBasophils/100 WBC Auto (Bld)Ordered By: Sandip Bunting on 92-72-1040Awligxtpo/100 WBC (Bld)Automated basophil %.[facility] Medical CenterC reactive protein [Mass/volume] in Serum or Plasma Ordered By: Sandip Bunting on 89-27-2538WNZ [Mass/Vol]C reactive protein [Mass/volume] in Serum or PlasmaHigh0.0-0.5FCleveland Clinic FoundationC- Reactive Proteinon 32-10-8859I-Reactive Protein6.7 mg/dLHigh0.0-0.5The [facility] Physician GroupComment on above:Result Comment: PERFORMED BY:[place] [address] [place], [place] [phone] MEDICAL DIRECTORJAJA CATES M.D.Performed By: #### BNP, CRP, CBC, ESR ####[facility] [address] [place] [address] [facility] Complete Blood Count Auto Diffon 07-90-4976Oqpayubhs (Bld) [#/Vol]0.1 10*3/uL Normal0.0-0.2The [facility] Physician GroupComment on above:Performed By: #### BNP, CRP, CBC, ESR ####[place] [address] USABasophils/100 WBC (Bld)0.9 %Normal.[facility] Comment on above:Performed By: #### BNP, CRP, CBC, ESR ####[place] [address] USAEosinophils (Bld) [#/Vol]0.5 10*3/uLHigh0.0-0.45The [facility] Physician GroupComment on above:Performed By: #### BNP, CRP, CBC, ESR ####[place] [address] USAEosinophils/100 WBC (Bld)6.4 %Normal.The [facility] Physician GroupComment on above:Performed By: #### BNP, CRP, CBC, ESR ####[address] Erythrocyte distribution width (RBC) [Ratio]17.0 %High12.0-14.8The [facility] Physician GroupComment on above:Performed By: #### BNP, CRP, CBC, ESR ####[place] [address] [place] Hematocrit (Bld) [Volume fraction]26.9 %Low38.8-50.0The [facility] Physician GroupComment on above:Performed By: #### BNP, CRP, CBC, ESR ####[place] [address] USAHemoglobin (Bld) [Mass/Vol]9.0 g/dLLow13.0-17.0The [facility] Physician GroupComment on above: Performed By: #### BNP, CRP, CBC, ESR ####[place] [address] USALymphocytes (Bld) [#/Vol]2.1 10*3/uLNormal 1.00-4.8The [facility] Physician GroupComment on above:Performed By: #### BNP, CRP, CBC, ESR ####[place] [id number] USALymphocytes/100 WBC (Bld)29.5 %Normal.[facility] Comment on above:Performed By: #### BNP, CRP, CBC, ESR ####[place] [id number] [facility] (RBC) [Entitic mass]31.4 uhMflajy42.5-35.2The [facility] Physician GroupComment on above:Performed By: #### BNP, CRP, CBC, ESR ####[place] [id number] [facility] (RBC) [Entitic vol]93.7 mQAjbrzk78.5-101The [facility] Physician GroupComment on above:Performed By: #### BNP, CRP, CBC, ESR ####[place] [address] USAMean Corpuscular HGB Conc33.5 g/tESkbzxa57.5-35.6The [facility] Physician GroupComment on above:Performed By: #### BNP, CRP, CBC, ESR ####[place] [address] USAMonocytes (Bld) [#/Vol]0.7 10*3/uL Normal0.0-0.8The [facility] Physician GroupComment on above:Performed By: #### BNP, CRP, CBC, ESR ####[place] [id number] USAMonocytes/100 WBC (Bld)9.2 %Normal.[facility] Comment on above:Performed By: #### BNP, CRP, CBC, ESR ####[place] [id number] USANeutrophils (Bld) [#/Vol]3.9 10*3/uLNormal1.8-7.7The [facility] Physician GroupComment on above:Performed By: #### BNP, CRP, CBC, ESR ####[place] [address] USANeutrophils/100 WBC (Bld)54.0 %Normal.The [facility] Physician GroupComment on above:Performed By: #### BNP, CRP, CBC, ESR ####[place] [address] USANRBC% 0.1 /100{WBC}Normal0-0.5The [facility] Physician GroupComment on above:Performed By: #### BNP, CRP, CBC, ESR ####[place] [address] USAPlatelet mean volume (Bld) [Entitic vol]7.8 fLNormal 6.6-10.1The [facility] Physician GroupComment on above:Performed By: #### BNP, CRP, CBC, ESR ####[place] [address] USAPlatelets (Bld) [#/Vol]249 10*3/oQMeqftx344-782Rhu [facility] Physician GroupComment on above:Performed By: #### BNP, CRP, CBC, ESR ####[place] [address] USARBC (Bld) [#/Vol]2.87 10*6/uLLow3.90-5.60The [facility] Physician GroupComment on above:Performed By: #### BNP, CRP, CBC, ESR ####[place] [address] USAWBC (Bld) [#/Vol]7.2 10*3/uLNormal4.1-10.5The [facility] Physician GroupComment on above:Performed By: #### BNP, CRP, CBC, ESR ####[place] [address] [place] Eosinophils Auto (Bld) [#/Vol]Ordered By: Sanidp Aguirre on 04-23-2024 Eosinophils (Bld) [#/Vol]Automated eosinophil countHigh0.0-0.45[facility] CenterEosinophils/100 WBC Auto (Bld)Ordered By: Sandip Bunting on 73-38-0845Ueikahkpjre/100 WBC (Bld)Automated eosinophil %.[facility] Medical CenterErythrocyte Sedimentation Rateon 85-35-2110HXG (Bld) [Velocity]95 mm/hHigh0-19The [facility] Physician GroupComment on above:Result Comment: PERFORMED BY:[facility] [place], [place] [phone] MEDICAL DIRECTORJAJA CATES M.D. Performed By: #### BNP, CRP, CBC, ESR ####[facility] [place] [address] [facility]ITALEryth[facility] distribution width Auto (RBC) [Ratio]Ordered By: Sandip Bunting on 93-01-5925Pjkhpdddwck distribution width (RBC) [Ratio]Erythrocyte distribution width [Ratio] by Automated countHigh 12.0-14.8[facility] Medical CenterErythrocyte sedimentation rate by Photometric methodOrdered By: Sandip Bunting on 24-16-7159GBY Photometric method (Bld) [Velocity]Erythrocyte sedimentation rate by Photometric methodHigh0-19 [facility] Medical CenterHematocrit Auto (Bld) [Volume fraction]Ordered By: Sandip Bunting on 95-83-0579Yaxtejvpgs (Bld) [Volume fraction]Hematocrit [Volume Fraction] of Blood by Automated gdamiPib22.8-50.0[facility] Medical CenterHemoglobin [Mass/volume] in BloodOrdered By: Snadip Bunting on 46-56-9525Zdplsudwgb (Bld) [Mass/Vol]Hemoglobin [Mass/volume] in BloodLow 13.0-17.0[facility] Medical CenterLeukocytes [#/volume] corrected for nucleated erythrocytes in Blood by Automated counOrdered By: Sandip Bunting on 91-34-7250NIU corrected for nucl RBC Auto (Bld) [#/Vol]Leukocytes [#/volume] corrected for nucleated erythrocytes in Blood by Automated coun4.1-10.5FCleveland Clinic FoundationLymphocytes Auto (Bld) [#/Vol]Ordered By: Sandip Bunting on 49-26-7417Snsqerkoxbz (Bld) [#/Vol]Lymphocytes [#/volume] in Blood by Automated count1.00-4.8[facility] Medical CenterLymphocytes/100 WBC Auto (Bld)Ordered By: Sandip Bunting on 90-48-0661Smjsgjpvzkb/100 WBC (Bld) Lymphocytes/100 leukocytes in Blood by Automated count.[facility] CenterH Auto (RBC) [Entitic mass]Ordered By: Sandip Bunting on 05-00-8282FDB (RBC) [Entitic mass]MCH [Entitic mass] by Automated count27.5-35.2 [facility] CenterHC Auto (RBC) [Mass/Vol]Ordered By: Sandip Bunting on 59-05-1362KQCD (RBC) [Mass/Vol]MCHC [Mass/volume] by Automated count 32.5-35.6FCleveland Clinic FoundationMCV Auto (RBC) [Entitic vol]Ordered By: Sandip Bunting on 04-58-0808YAR (RBC) [Entitic vol]MCV [Entitic volume] by Automated count83.5-101[facility] CenterMonocytes Auto (Bld) [#/Vol]Ordered By: Sandip Bunting on 00-42-8427Rwmxynozt (Bld) [#/Vol]Automated blood monocyte count0.0-0.8[facility] Medical CenterMonocytes/100 WBC Auto (Bld)Ordered By: Sandip Bunting on 35-69-0199Gqhxmcyxj/100 WBC (Bld) Automated monocyte %.[facility] CenterNatriuretic peptide B [Mass/Vol]Ordered By: Sandip Bunting on [id number] peptide B (Bld) [Mass/Vol]BNP ser/plasHigh5-100[facility] CenterNeutrophils Auto (Bld) [#/Vol]Ordered By: Sandip Bunting on 09-85-4191Egnkimrgdia (Bld) [#/Vol] Neutrophils [#/volume] in Blood by Automated count1.8-7.7FC[facility] Clinic FoundationNeutrophils/100 WBC Auto (Bld)Ordered By: Sandip Bunting on 42-52-5959Uipipqubdkg/100 WBC (Bld)Automated neutrophil %.Firelands Regional Medical CenterNucleated erythrocytes [Presence] in Blood by Automated count Ordered By: Sandip Bunting on 12-00-2354Aqklnarxl RBC Auto Ql (Bld)Nucleated erythrocytes [Presence] in Blood by Automated count0-0.5FCleveland Clinic FoundationPlatelet mean volume Auto (Bld) [Entitic vol]Ordered By: Sandip Bunting on 65-78-6133Duagznbp mean volume (Bld) [Entitic vol]Platelet mean volume [Entitic volume] in Blood by Automated count6.6-10.1FCleveland Clinic FoundationPlatelets Auto (Bld) [#/Vol]Ordered By: Sandip Bunting on 82-83-2333Jykjtbixe (Bld) [#/Vol]Platelets [#/volume] in Blood by Automated -272OmicjmbssUniversity Hospitals Ahuja Medical CenterRBC Auto (Bld) [#/Vol]Ordered By: Sadnip Bunting on 46-55-2562OJA (Bld) [#/Vol]Erythrocytes [#/volume] in Blood by Automated countLow3.90-5.60University Hospitals Ahuja Medical CenterWBC Auto (Bld) [#/Vol]Ordered By: Sandip Bunting on 82-72-9554BYN (Bld) [#/Vol]Leukocytes [#/volume] in Blood by Automated count4.1-10.5FCleveland Clinic Foundation .eGFRon 22-50-6514Ndljghhdm GFR57 mL/min/1.73m?Low>=60Samaritan HospitalComment on above:Result Comment: [facility] have implemented the eGFR calculation [...] Age = yearsPerformed By: #### MG #### [address] [address]Jpadq Metabolic Profileon 74-37-2069Lcqfd gap [Moles/Vol]8 mmol/LNormal4-12Samaritan HospitalComment on above:Performed By: #### CD:[id number] #### [address] [address]Alrspvk [Mass/Vol]8.6 mg/dLNormal8.5-10.3BCentervilleComment on above:Performed By: #### CD:[id number] #### [address] [address]Lwmabzzm [Moles/Vol]96 mmol/URos71-669IzvqlfxavSamaritan HospitalComment on above:Performed By: #### CD:[id number] #### [address] [address]ME8 [Moles/Vol]27 mmol/XAoqjce11-53MdwumtwhjSamaritan HospitalComment on above:Performed By: #### CD:[id number] #### [address] [address]Nrhazlmgzg [Mass/Vol]1.25 mg/dLHigh0.61-1.24Samaritan HospitalComment on above:Performed By: #### CD:[id number] #### [address] [address]Ahzuuyf [Mass/Vol]83 mg/xVFupwiq14-68IeyrfezvxSamaritan HospitalComment on above:Performed By: #### CD:[id number] #### [address] [address]Iwjvfhinj [Moles/Vol]3.7 mmol/LNormal3.4-4.8BCentervilleComment on above:Performed By: #### CD:[id number] #### [address] [address]Zkblmc [Moles/Vol]131 mmol/NPtq964-603NkjfrzyvtSamaritan HospitalComment on above:Performed By: #### CD:[id number] #### [address] [address]Zddf nitrogen [Mass/Vol]19 mg/dLNormal8-26Samaritan HospitalComment on above:Performed By: #### CD:[id number] #### [address] [address]Flqs nitrogen/Creatinine [Mass ratio]15.2 mg/vfQcnljw92.0-20.0 Samaritan HospitalComment on above:Performed By: #### CD:[id number] #### [address] [address]V Bldon 04-20-2024 Bld Final No growth at 5 days.NormalSamaritan HospitalComment on above: Performed By: #### BLDC ####[address] [address]Drsyiiful By: #### MARISELA #### [address] [address]F Sterile BSon 04-20-2024 Sterile BS Final Light Growth of Pseudomonas aeruginosa isolated ORGANISM PA SUSCEPTIBILITY ORGANISM ID: 1 ANTIBIOTIC INTERPRETATION BELLA STATUS POS Pseudomonas aeruginosa Ceftazidime S 4 V Ciprofloxacin I 1 V Levofloxacin R 4 V Meropenem S 1 V Piperacillin/Tazobactam S 16 V SUSCEPTIBILITY ORGANISM ID: 1 ANTIBIOTIC INTERPRETATION BELLA STATUS POS Pseudomonas aeruginosa Cefepime S VNormalSamaritan HospitalComment on above:Performed By: #### :[id number] #### [address] [address]KYO w/ Diffon 32-11-9455Nqaxopnsezm distribution width (RBC) [Ratio]17.6 %High11.6-14.8BCentervilleComment on above: Performed By: #### CBC ####[address] [address]Jicxxzrdla (Bld) [Volume fraction]27.2 %Low41.0-53.0 Samaritan HospitalComment on above:Performed By: #### CBC ####[address] [address]Sqclggwjvi (Bld) [Mass/Vol]9.1 g/dLLow13.5-17.5BCentervilleComment on above:Performed By: #### CBC ####[address] [address]NYE (RBC) [Entitic mass]31.1 qfAttioc51.0-35.0Samaritan HospitalComment on above:Performed By: #### CBC ####[address] [address]FPZP45.5 %Srnvlx09.0-37.0 Samaritan HospitalComment on above:Performed By: #### CBC ####[address] [address]UPX (RBC) [Entitic vol]92.9 yFBrevvd20.0-100.0Samaritan HospitalComment on above:Performed By: #### CBC ####[address] [address]Uxhgpuzo725 x10*3/wgPIjftko047-102GypnsdeyvSamaritan HospitalComment on above:Performed By: #### CBC ####[address] [address]Nwhuuims mean volume (Bld) [Entitic vol]7.0 fL Normal6.7-10.6BCentervilleComment on above:Performed By: #### CBC ####[address] [address]LPR2.93 x10*6/mcLLow4.30-5.80Samaritan HospitalComment on above:Performed By: #### CBC ####[address] [address]EPT8.0 x10*3/mcLNormal4.5-11.0Samaritan HospitalComment on above:Performed By: #### CBC ####[address] [address]Byldrrfuwl Progress Noteon 60-90-5436Eetldfknjt Progress NoteSubjective PCP: Opal aG DO ([place], [place]) Cardio: Kathy Mcintyre DO ([facility] [place] [place] 83M with permanent AF, CHF, CKD, hypercholesterolemia transferred from [facility] for continued treatment of lower extremity edema and perioperative cardiology evaluation. Lower extremity edema suspected of being more related to chronic lymphedema than decompensated heart failure. Interval History: - POD #3 lumbar I&D with wound closure finding a small seroma - No significant events overnight - Fluid balance -3.3 L yesterday and -7.5 L since admission to [facility] (-4.7 L at [facility] prior to transfer) - Denies chest pain, dyspnea, palpitations, or lightheadedness Cardiac Testing Echocardiography > 04/13/24: (Limited) EF 45-50%, mild RV enlargement with mildly reduced systolic function, marked LAE, moderate MARCIA ([facility]) Objective Vitals & Measurements T: 36.7 ?C [...] Zofran, 4 mg= 2 mL, IV Push, z0op-Nwhborlw Times, PRN Assessment/Plan 1. Chronic HFmrEF (systolic [...] a cardiac perspective. Follow up with primary pump erector helper in [place], [place], after discharge. Will sign off. Medical Decision Making Number of Problems Addressed: Moderate (2 stable chronic problems [CHF, AF]) Data Reviewed/Analyzed: Moderate (reviewed results of at least 3 unique lab tests) Risk of Complications, Morbidity, or Mortality: Moderate (prescription drug management) Electronically signed by Frankie Dallas DO 04/20/24 13:45 [facility] Dietary Progress Noteon 25-55-2336Nvccrny Progress NotePt. screened for LOS. Pt. with [...] Electronically signed by Dolly Escobedo 04/20/24 13:26 ESTNormalBlGlenbeigh HospitalDiff Autoon 61-21-3358Lmud Absolute0.0 x10*3/mcLNormal0.0-0.2BCenterville Comment on above:Performed By: #### .Automated Diff ####[address] [address]Bchvdqvpu/100 WBC (Bld)0.6 % Normal0.0-1.2BCentervilleComment on above:Performed By: #### .Automated Diff ####[address] [address]Lqn Absolute0.5 x10*3/mcLHigh0.0-0.4BKettering Health Main Campus SystemComment on above:Performed By: #### .Automated Diff ####[address] [address]Ocjwyunldwd/100 WBC (Bld)8.7 %High0.0-6.1 [facility] SystemComment on above:Performed By: #### .Automated Diff ####[address] [address]Mogqq Absolute1.9 x10*3/mcLNormal1.0-4.8BKettering Health Main Campus SystemComment on above:Performed By: #### .Automated Diff ####[address] [address]Ezousleymob/100 WBC (Bld)32.3 %Sqhyob11.2-40.8 [facility]aritan HospitalComment on above:Performed By: #### .Automated Diff ####[address] [address]Ngjo Absolute0.5 x10*3/mcLNormal0.3-1.1BKettering Health Main Campus SystemComment on above:Performed By: #### .Automated Diff ####[address] [address]Hjsfapftc/100 WBC (Bld)9.0 %Normal4.7-13.9BKettering Health Main Campus SystemComment on above:Performed By: #### .Automated Diff ####[address] [address]Pcdcoc Absolute3.0 x10*3/mcLNormal1.8-7.7BKettering Health Main Campus SystemComment on above:Performed By: #### .Automated Diff ####[address] [address]Rsrfdy Auto49.4 %Jtcmgc11.2-70.8BCentervilleComment on above:Performed By: #### .Automated Diff ####[facility] [place], [place] [address]Nxfcidhta Clinical Summary on 27-54-1121Pohfqrsoy Clinical SummaryBlProvidence Holy Family [facility] [address] [place] [address] [phone] [address] [phone] Clinical Summary Person Information Name: Tavo Wallis Age: 83 Years : 1940 Sex: Male PCP: Tavo Mcintyre DO Marital Status: Phone: PCP: Race: White Ethnicity: Not or Language: [place] Citizen Visit Id: Visit Reason: CHF exacerbation Speciality: Acuity: Enc Type: Inpatient Med Service: Medicine-General Arrival: 04/15/2024 03:52:56 Discharge: Dispo Type: Address: [address] [id number] Preferred Communication Mode: Preferred Language: [place] Citizen Discharge Diagnosis: 1:Postoperative wound infection; 2:Dehiscence of surgical wound; 3:Atrial fibrillation, permanent; 4:Current use of anticoagulants; 5:Lymphedema; 6:Chronic systolic heart failure; 7:Postoperative urinary retention; 8:Preoperative cardiovascular examination Discharged To: prison facility Mode of Discharge Transportation: Home Treatments: Devices/Equipment: Professional Skilled Services: Special Services and Community Resources: Discharge Orders: Activity Restrictions Follow up 04/20/24 13:16:00 EST, Provider: Tye Pompa MD, 1 to 2 weeks Follow up 04/20/24 13:17:00 EST, Provider: [facility], Randi [place], 1 week Follow up with Primary Care Provider (PCP) 04/18/24 11:08:00 EST, 1 to 2 weeks Correction Facility Certification 04/18/24 11:08:00 EST, Skilled, I certify [facility] facility stay is anticipated to be LESS [...] range between ( 27.2 and 40.8 ) [place] Auto: 9.0 % -- Normal range between [...] range between ( 41.0 and 53.0 ) [place] Absolute: 0.5 x10 MCH: 31.1 pg -- Normal range between ( 27.0 and 35.0 ) Neutro Absolute: 3.0 x10 Hgb: 9.1 g/dL -- Normal range between ( 13.5 and 17.5 ) Me (more content not included)...NormalSamaritan HospitalMagnesiumon 77-83-9184Movcfnyka [Mass/Vol]2.1 mg/dLNormal1.7-2.4BCentervilleComment on above:Performed By: #### MG #### [address] [address]Kqnlertmqn Progress Noteon 55-97-3152Cyyairiukw Progress Note Subjective POD#1 lumbar I&D. Patient [...] Zofran, 4 mg= 2 mL, IV Push, b0my-Ntcuiwhz Times, PRN Assessment/Plan 1. Postoperative wound infection [...] signed by Mani Hannon PA-C 04/20/24 08:08 [facility] Progress Note-Nurseon 14-31-0818Ibajeicw Note-Wivsq69l 10cm single lumen powerglide midline catheter inserted in the left upper arm. Sterile field main tained. no complications noted. Patient tolerated well. lot # [id number] Electronically signed by Jonelle Wall 04/20/24 11:55 [facility].eGFRon 14-14-2940Jraetvzau GFR52 mL/min/1.73m?Low>=60[facility] Comment on above:Result Comment: [facility] have implemented the eGFR calculation [...] 1 Age = yearsPerformed By: #### EGFR ####[address] [address]Rosmu Metabolic Profileon 49-05-0690Dekyp gap [Moles/Vol] 6 mmol/LNormal4-12Samaritan HospitalComment on above:Performed By: #### MG #### [address] [address]Orhpedz [Mass/Vol]8.5 mg/dLNormal8.5-10.3BCentervilleComment on above:Performed By: #### MG #### [address] [address]Qnrnxwim [Moles/Vol]97 mmol/SDal51-159BokvyghcuSamaritan HospitalComment on above:Performed By: #### MG #### [address] [address]BU5 [Moles/Vol]27 mmol/DRbxlqo22-23NwgpzsrdsSamaritan HospitalComment on above:Performed By: #### MG #### [address] [address]Cvynzbdfio [Mass/Vol]1.37 mg/dLHigh0.61-1.24Samaritan HospitalComment on above:Performed By: #### MG #### [address] [address]Uecatld [Mass/Vol]94 mg/aQTiweej46-20UuynohvplSamaritan HospitalComment on above:Performed By: #### MG #### [address] [address]Urrlujqgb [Moles/Vol]3.8 mmol/LNormal3.4-4.8BCentervilleComment on above:Performed By: #### MG #### [address] [address]Yeecqk [Moles/Vol]130 mmol/CAdm187-562QbzuelddgSamaritan HospitalComment on above:Performed By: #### MG #### [address] [address]Qamv nitrogen [Mass/Vol]20 mg/dLNormal8-26Samaritan HospitalComment on above:Performed By: #### MG #### [address] [address]Jnpo nitrogen/Creatinine [Mass ratio]14.6 mg/hsUbzgtf33.0-20.0 [facility]itan HospitalComment on above:Performed By: #### MG #### [address] [address]Q ANAon 04-19-2024 KG Final No anaerobic growth after 72 hrs.NormalSamaritan HospitalComment on above:Performed By: #### CD:[id number] #### [address] [address]NCV w/ Diffon 68-81-2222Dluqnijboze distribution width (RBC) [Ratio]18.1 %High11.6-14.8BCentervilleComment on above: Performed By: #### CD:[id number] #### [address] [address]Znkistanre (Bld) [Volume fraction]27.4 %Low41.0-53.0Samaritan HospitalComment on above:Performed By: #### CD:[id number] #### [address] [address]Ddjskbyetm (Bld) [Mass/Vol]9.3 g/dLLow13.5-17.5BCentervilleComment on above:Performed By: #### CD:[id number] #### [address] [address]UHE (RBC) [Entitic mass]31.4 rkUtffxq58.0-35.0Samaritan HospitalComment on above:Performed By: #### CD:[id number] #### [address] [address]HFLU73.0 %Rlxtgi93.0-37.0Samaritan HospitalComment on above:Performed By: #### CD:[id number] #### [address] [address]HLF (RBC) [Entitic vol]92.4 vVStpvxn09.0-100.0Samaritan HospitalComment on above:Performed By: #### CD:[id number] #### [address], [place] [address]Gsuyqtok363 x10*3/fgVMnthkt410-172MtvxdauvjSamaritan HospitalComment on above:Performed By: #### CD:[id number] #### [address] [address]Budxxxpj mean volume (Bld) [Entitic vol]7.2 fLNormal6.7-10.6 Sam[facility]itan HospitalComment on above:Performed By: #### CD:[id number] #### [address], [place] [address]GMP2.96 x10*6/mcLLow4.30-5.80[facility] Comment on above:Performed By: #### CD:[id number] #### [address], [place] [address]IHW2.9 x10*3/mcLNormal4.5-11.0[facility] Comment on above:Performed By: #### CD:[id number] #### [address] [address]Ilbh Autoon 01-03-4440Ykoq Absolute0.0 x10*3/mcLNormal0.0-0.2 [facility]aritan HospitalComment on above:Performed By: #### MG #### [address] [address]Ajedjplns/100 WBC (Bld)0.5 %Normal0.0-1.2BCentervilleComment on above:Performed By: #### MG #### [address] [address]Tbw Absolute0.4 x10*3/mcLNormal0.0-0.4BCentervilleComment on above:Performed By: #### MG #### [address] [address]Ixgsmguzuah/100 WBC (Bld)5.9 %Normal0.0-6.1BCentervilleComment on above:Performed By: #### MG #### [address] [address]Nncql Absolute2.2 x10*3/mcLNormal1.0-4.8BCentervilleComment on above:Performed By: #### MG #### [address] [address]Dvtxashuqhh/100 WBC (Bld)32.3 %Ojdnau74.2-40.8BCentervilleComment on above:Performed By: #### MG #### [address] [address]Ocxd Absolute0.8 x10*3/mcLNormal0.3-1.1BCentervilleComment on above:Performed By: #### MG #### [address] [address]Yxtpidfat/100 WBC (Bld)11.2 %Normal4.7-13.9BCentervilleComment on above:Performed By: #### MG #### [facility] [address] [place], [place] [address]Giiert Absolute3.5 x10*3/mcLNormal1.8-7.7BCentervilleComment on above:Performed By: #### MG #### [facility] [address] [place], [place] [address]Ofwjnw Auto50.1 %Qclaqr87.2-70.8BCenterville Comment on above:Performed By: #### MG #### [facility] [address] [place], [place] [address]Muefdwfile Disease Progress Noteon 97-05-3805Ifpytnoton Disease Progress NoteSubjective Overall feeling okay. No [...] with patient's daughter who is power of business agent. CRF filled out. Ordered: Midline Catheter Insertion 2. Dehiscence of surgical wound 3. Atrial fibrillation, permanent 4. Current use of anticoagulants 5. Lymphedema 6. Chronic systolic heart failure 7. Postoperative urinary retention 8. Preoperative cardiovascular examination Electronically signed by Tye Pompa MD 04/19/24 20:32 ESTNormalSamaritan HospitalMagnesiumon 75-86-3453Ddonmdztk [Mass/Vol]2.1 mg/dLNormal1.7-2.4 [facility]aritan HospitalComment on above:Performed By: #### CBC #### [place] [address].eGFRon 74-97-2687Khgaxrmed GFR48 mL/min/1.73m?Low>=60Samaritan HospitalComment on above:Result Comment: [facility] have implemented the eGFR calculation [...] Age = yearsPerformed By: #### CBC #### [address] [address]Rpche Metabolic Profileon 77-95-9571Qdnxs gap [Moles/Vol]8 mmol/LNormal4-12Sam[facility]itan HospitalComment on above:Performed By: #### MG #### [address] [address]Enfbnex [Mass/Vol]8.3 mg/dLLow8.5-10.3BCentervilleComment on above:Performed By: #### MG #### [address] [address]Bjyillll [Moles/Vol]97 mmol/OUsk74-552JhenretrzSamaritan HospitalComment on above:Performed By: #### MG #### [address] [address]KU5 [Moles/Vol]27 mmol/WElnwjk74-17AzqovidtpSamaritan HospitalComment on above:Performed By: #### MG #### [address] [address]Fhtxxdbbhl [Mass/Vol]1.45 mg/dLHigh0.61-1.24Samaritan HospitalComment on above:Performed By: #### MG #### [address] [address]Mqlvovq [Mass/Vol]87 mg/eXGadkdf50-24TxxdawmohSamaritan HospitalComment on above:Performed By: #### MG #### [address] [address]Jlbykdoap [Moles/Vol]3.9 mmol/LNormal3.4-4.8BCentervilleComment on above:Performed By: #### MG #### [address] [address]Zdewdg [Moles/Vol]132 mmol/IDmz207-585InccmlkacSamaritan HospitalComment on above:Performed By: #### MG #### [address] [address]Ypyz nitrogen [Mass/Vol]19 mg/dLNormal8-26Samaritan HospitalComment on above:Performed By: #### MG #### [address] [address]Ewis nitrogen/Creatinine [Mass ratio]13.1 mg/dxCiennk91.0-20.0 Samaritan HospitalComment on above:Performed By: #### MG #### [address] [address]WXK w/ Diffon 88-62-7494Wdzikxubusz distribution width (RBC) [Ratio]18.1 %High11.6-14.8BCentervilleComment on above: Performed By: #### MG #### [address] [address]Rsxsxelmss (Bld) [Volume fraction]26.8 %Low41.0-53.0Samaritan HospitalComment on above:Performed By: #### MG #### [address] [address]Rdjauxmorw (Bld) [Mass/Vol]8.9 g/dLLow13.5-17.5BCentervilleComment on above:Performed By: #### MG #### [address] [address]PIW (RBC) [Entitic mass]30.6 yjEqyebv21.0-35.0Samaritan HospitalComment on above:Performed By: #### MG #### [address] [address]SFZT33.1 %Aksuvs98.0-37.0Samaritan HospitalComment on above:Performed By: #### MG #### [address] [address]IHN (RBC) [Entitic vol]92.6 nKKfehzt49.0-100.0Samaritan HospitalComment on above:Performed By: #### MG #### [address] [address]Hzikctch369 x10*3/abZTokcmc836-813EixnogedzSamaritan HospitalComment on above:Performed By: #### MG #### [address] [address]Ijtvpamb mean volume (Bld) [Entitic vol]6.9 fLNormal6.7-10.6 [facility]itan HospitalComment on above:Performed By: #### MG #### [address] [address]IMU1.90 x10*6/mcLLow4.30-5.80[facility] Comment on above:Performed By: #### MG #### [address] [address]QQP9.5 x10*3/mcLNormal4.5-11.0[facility] Comment on above:Performed By: #### MG #### [address] [address]RFCts 75-08-2946WVY61.60 mg/dLHigh0.00-0.75Samaritan HospitalComment on above:Result Comment: CRP measurement is useful for assessment of non-specific INFLAMMATORY RESPONSE to infection or injury AND is a sensitive MARKER of ACUTE INFLAMMATION including CARDIAC RISK ASSESSMENT. CARDIAC patients with elevated CRP are POTENTIALLY at a HIGHER RISK OF FUTURE CARDIAC EVENTS.Performed By: #### MG #### [address] [address]Zyeqywnqfg Progress Noteon 59-66-5841Cpxcobxwzi Progress Note Subjective PCP: Opal Ga DO ([place], [place]) Cardio: Kathy Mcintyre DO ([facility] [place] [place]) 83M with permanent AF, CHF, CKD, hypercholesterolemia transferred from [facility] for continued treatment of lower extremity edema and perioperative cardiology evaluation. Lower extremity edema suspected of being more related to chronic lymphedema than decompensated heart failure. Interval History: - POD #1 lumbar I&D with wound closure finding a small seroma - No significant events overnight - Fluid balance -1.3 L yesterday and -4.0 L since admission to [facility] (-4.7 L at [facility] prior to transfer) - Denies chest pain, dyspnea, palpitations, or lightheadedness Cardiac Testing Echocardiography > 04/13/24: (Limited) EF 45-50%, mild RV enlargement with mildly reduced systolic function, marked LAE, moderate MARCIA ([facility]) Objective Vitals & Measurements T: 38.0 ?C [...] Zofran, 4 mg= 2 mL, IV Push, q9gp-Gosxhvrk Times, PRN Assessment/Plan 1. Chronic HFmrEF (systolic [...] signed by Frankie Dallas DO 04/18/24 07:58 [facility] Diff Autoon 21-53-3065Cwcc Absolute0.1 x10*3/mcLNormal0.0-0.2BCentervilleComment on above:Performed By: #### .Automated Diff ####[address] [address]Cqgedjvkr/100 WBC (Bld)0.6 %Normal0.0-1.2BCentervilleComment on above:Performed By: #### .Automated Diff ####[address] [address]Wbd Absolute0.3 x10*3/mcLNormal0.0-0.4BCentervilleComment on above:Performed By: #### .Automated Diff ####[address] [address]Naqzqfnbspf/100 WBC (Bld)4.0 %Normal0.0-6.1 [facility]itan HospitalComment on above:Performed By: #### .Automated Diff ####[address] [address]Mifyx Absolute2.7 x10*3/mcLNormal1.0-4.8BCentervilleComment on above:Performed By: #### .Automated Diff ####[address] [address]Rnzfpdurmjb/100 WBC (Bld)32.0 %Wqiedy87.2-40.8 [facility]itan HospitalComment on above:Performed By: #### .Automated Diff ####[address] [address]Skje Absolute0.8 x10*3/mcLNormal0.3-1.1BCentervilleComment on above:Performed By: #### .Automated Diff ####[address] [address]Bqilxyffh/100 WBC (Bld)9.7 %Normal4.7-13.9BCentervilleComment on above:Performed By: #### .Automated Diff ####[place] [address] [place], [place] [address]Zpbmsg Absolute4.5 x10*3/mcLNormal1.8-7.7BCentervilleComment on above:Performed By: #### .Automated Diff ####[address] [address]Dqmgqx Auto53.7 %Cuhhgn44.2-70.8BCentervilleComment on above:Performed By: #### .Automated Diff ####[address] [address]NDDze 84-98-9341Fns Rate75 mm/hrHigh0-23Samaritan HospitalComment on above:Performed By: #### ESR ####[address] [address] Infectious Disease Progress Noteon 06-04-9826Ciwnvalgep Disease Progress Note Subjective Noted to have [...] signed by Tye Pompa MD 04/18/24 17:30 ESTNormalSamaritan HospitalMagnesiumon 77-87-2117Wzcahbuqc [Mass/Vol]1.8 mg/dLNormal1.7-2.4 [facility]itan HospitalComment on above:Performed By: #### MG #### [address] [address]Bregodwbxe Progress Noteon 18-43-4311Sabmpzuhfz Progress Note Subjective POD#1 lumbar I&D. Patient [...] Zofran, 4 mg= 2 mL, IV Push, w2cu-Prlywnnn Times, PRN Assessment/Plan 1. Dehiscence of surgical wound 2. Atrial fibrillation, permanent 3. Current use of anticoagulants 4. Lymphedema 5. Chronic systolic heart failure 6. Postoperative urinary retention Plan: 1. Continue drain 2. ID consulted and following along 3. Discharge pending Electronically signed by Mani Hannon PA-C 04/18/24 06:30 ESTNormalSamaritan Hospital Respiratory Pathogens Panelon 93-54-8430Seftygkkor.Not detectedNormalNot DetectedSamaritan HospitalComment on above:Performed By: #### CD:[id number] #### [address] [address]Ujmkuxhdmj holmesiiNot detectedNormalNot DetectedSamaritan HospitalComment on above:Result Comment: Testing was performed using nucleic acid amplification including Influenza A, Influenza A/H1, Influenza A/H3, Influenza B, RSV A, RSV B, Adenovirus, Human Metapneumovirus, Parainfluenz a 1, 2, 3, 4, Rhinovirus, Bordatella parapertussis / bronchiseptica, Bordatella holmesii, Bordatella pertussis. Results from the [employer] Respiratory Pathogens Panel should be interpreted with [...] and / or Influenza B.Performed By: #### CD:[id number] #### [address] [address]Swikhnwhai para/bronchNot detectedNormalNot DetectedSamaritan HospitalComment on above:Performed By: #### CD:[id number] #### [address] [address]Pctofepdjp pertussisNot detectedNormalNot DetectedSamaritan HospitalComment on above:Performed By: #### CD:[id number] #### [address], [place] [address]sZGIXqe detectedNormalNot DetectedSamaritan HospitalComment on above:Performed By: #### CD:[id number] #### [address], [place] [address]Fsraqjixk ANot detectedNormalNot DetectedSamaritan HospitalComment on above:Performed By: #### [id number] #### [address] [address]Zypupziut A/H1Not detectedNormalNot DetectedRiverview Health Institute SystemComment on above:Performed By: #### [id number] #### [address], [place] [address]Uzidgjxxj A/H3Not detectedNormalNot DetectedRiverview Health Institute SystemComment on above:Performed By: #### [id number] #### [facility] [address] [facility], [place] [address]Vhjzgvoad BNot detectedNormalNot DetectedRiverview Health Institute SystemComment on above:Performed By: #### CD:[id number] #### [address], [place] [address]Bhxqpqyhiifxq 1Not detectedNormalNot DetectedRiverview Health Institute SystemComment on above:Performed By: #### CD:[id number] #### [address], [place] [address]Qkdakcyyvrdzt 2Not detectedNormalNot DetectedRiverview Health Institute SystemComment on above:Performed By: #### CD:[id number] #### [address], [place] [address]Bdbjdffgcvczl 3Not detectedNormalNot DetectedRiverview Health Institute SystemComment on above:Performed By: #### CD:[id number] #### [address], [place] [address]Llqjwnbrwbnqq 4Not detectedNormalNot DetectedRiverview Health Institute SystemComment on above:Performed By: #### CD:[id number] #### [address], [place] [address]TjdznmkyfaYfs detectedNormalNot DetectedRiverview Health Institute SystemComment on above:Result Comment: Due to the genetic similarity between human rhinovirus and enterovirus, some strains of enterovirus may be detected as rhinovirus by this assay.Performed By: #### CD:[id number] #### [address], [place] [address]TFR ANot detectedNormalNot DetectedBlGlenbeigh HospitalComment on above:Performed By: #### CD:[id number] #### [facility] [address] [place], [place] [address]JIR BNot detectedNormalNot DetectedSamaritan HospitalComment on above:Performed By: #### CD:[id number] #### [facility] [address] [place], [place] [address]PH Chest 1 Viewon 03-05-6110HX Chest 1 ViewCLINICAL HISTORY: Worsening dyspnea. EXAMINATION: [...] Signed, Electronically Signed in Other Vendor System)Normal [facility].eGFRon 77-31-2702Cztonvdzs GFR52 mL/min/1.73m?Low >=60Samaritan HospitalComment on above:Result Comment: [facility] have implemented the eGFR calculation [...] 1 Age = yearsPerformed By: #### EGFR ####[address] [address]Ywenb Metabolic Profileon 79-71-1147Tqctj gap [Moles/Vol] 7 mmol/LNormal4-12Samaritan HospitalComment on above:Performed By: #### CD:[id number] ####[address] [address]Pxnzagv [Mass/Vol]8.4 mg/dLLow8.5-10.3BCenterville Comment on above:Performed By: #### CD:[id number] ####[address] [address]Xjhzlokl [Moles/Vol]100 mmol/L Ncsgzo85-768SxwsmpmxmSamaritan HospitalComment on above:Performed By: #### CD:[id number] ####[address] [address]IP0 [Moles/Vol]26 mmol/LPjeuoy24-56RxvbhxehsSamaritan HospitalComment on above:Performed By: #### CD:[id number] ####[address] [address]Ystknjyxex [Mass/Vol]1.37 mg/dLHigh0.61-1.24 Samaritan HospitalComment on above:Performed By: #### CD:[id number] ####[address] [address]Qbactkl [Mass/Vol]89 mg/mHWsznxi58-89PrugqwdyoSamaritan HospitalComment on above: Performed By: #### CD:[id number] ####[address] [address]Iklyzlsif [Moles/Vol]3.7 mmol/LNormal3.4-4.8BCentervilleComment on above:Performed By: #### CD:[id number] ####[address] [address]Djfxkf [Moles/Vol]133 mmol/SEmqbpl484-988SuzigwvxbSamaritan HospitalComment on above:Performed By: #### CD:[id number] ####[address] [address]Wlzb nitrogen [Mass/Vol]20 mg/dLNormal8-26Samaritan HospitalComment on above:Performed By: #### CD:[id number] ####[address] [address]Kbtf nitrogen/Creatinine [Mass ratio]14.6 mg/euWrbwsh17.0-20.0Samaritan HospitalComment on above:Performed By: #### CD:[id number] ####[address] [address]YOJ w/ Diffon 04-17-2024 Erythrocyte distribution width (RBC) [Ratio]18.7 %High11.6-14.8BCentervilleComment on above:Performed By: #### CBC ####[address] [address]Fhsdqdtjsf (Bld) [Volume fraction]26.4 %Low41.0-53.0Samaritan HospitalComment on above: Performed By: #### CBC ####[address] [address]Ozcdguwyqn (Bld) [Mass/Vol]9.0 g/dLLow13.5-17.5BCentervilleComment on above:Performed By: #### CBC ####[address] [address]BSH (RBC) [Entitic mass]31.8 pg Tdyflp98.0-35.0Samaritan HospitalComment on above:Performed By: #### CBC ####[address] [address]WCOS64.2 %Nuxwgb46.0-37.0Samaritan HospitalComment on above:Performed By: #### CBC ####[address] [address]ITY (RBC) [Entitic vol]93.0 bCMqzqaz25.0-100.0Samaritan HospitalComment on above:Performed By: #### CBC ####[address] [address]Wlsxgtpk149 x10*3/qsZShcjmj539-115AqxnjeklnSamaritan HospitalComment on above:Performed By: #### CBC ####[place] [address]Platelet mean volume (Bld) [Entitic vol]6.5 fL Low6.7-10.6BCentervilleComment on above:Performed By: #### CBC ####[address] [address]PEA5.84 x10*6/mcLLow4.30-5.80Samaritan HospitalComment on above:Performed By: #### CBC ####[address] [address]SGM3.6 x10*3/mcLNormal4.5-11.0Samaritan HospitalComment on above:Performed By: #### CBC ####[address] [address]Yfdo Autoon 59-19-5647Ppff Absolute0.1 x10*3/mcLNormal 0.0-0.2BCentervilleComment on above:Performed By: #### CD:[id number] #### [address] [address]Fvynighme/100 WBC (Bld)1.3 %High0.0-1.2BCentervilleComment on above:Performed By: #### CD:[id number] #### [address] [address]Aiv Absolute0.3 x10*3/mcLNormal0.0-0.4BCentervilleComment on above:Performed By: #### CD:[id number] #### [address], [place] [address]Xenzunozqvd/100 WBC (Bld)5.4 %Normal0.0-6.1BKettering Health Main Campus SystemComment on above:Performed By: #### CD:[id number] #### [address], [place] [address]Faxjz Absolute1.6 x10*3/mcLNormal1.0-4.8BCentervilleComment on above:Performed By: #### CD:[id number] #### [address] [address]Euvovotonmj/100 WBC (Bld)28.7 %Xzrlfs77.2-40.8BCentervilleComment on above:Performed By: #### CD:[id number] #### [address], [place] [address]Yfbr Absolute0.5 x10*3/mcLNormal0.3-1.1BCentervilleComment on above:Performed By: #### CD:[id number] #### [address] [address]Edmlafvny/100 WBC (Bld)9.7 %Normal4.7-13.9BKettering Health Main Campus SystemComment on above:Performed By: #### CD:[id number] #### [address], [place] [address]Okmjsj Absolute3.1 x10*3/mcLNormal1.8-7.7BKettering Health Main Campus SystemComment on above:Performed By: #### CD:[id number] #### [address], [place] [address]Kvmjct Auto54.9 %Fgekol27.2-70.8BKettering Health Main Campus System Comment on above:Performed By: #### CD:[id number] #### [facility] [address] [place], [place] [address]Dpy & Hcton 55-88-5807Plaxilxbtg (Bld) [Volume fraction]27.2 % Low41.0-53.0Samaritan HospitalComment on above:Performed By: #### HGBHCT ####[facility] [place] [address] Hemoglobin (Bld) [Mass/Vol]9.1 g/dLLow13.5-17.5BCenterville Comment on above:Performed By: #### HGBHCT ####[address] [address]Uewutpywsu Disease Consultationon 04-17-2024 Infectious Disease ConsultationChief Complaint [...] for the tumor. His initial surgery at [facility] in [place]. Postoperatively apparently he gained a lot of fluid weight. He was sent to snf and due to persistent edema he was sent to [facility]. Catheter wasplaced and was found to [...] up either. He was sent back to snf. Apparently wound broke down due to persistent pressure with the back brace on against the bed. At 1 point his lymphedema pump was apparently put on over socks and caused extreme pain due to the tightness. He is doing okay at this point. He does not have any open areas in the legs or feet. He was initially admitted to [place] with MRI showing a fluid collection. He [...] being told of any fever by the snf. She has been unhappy with the care at the facility. On review of documents from [place] he was on remdesivir on the and 14 April. However daughter states he was treated for COVIDwhile he was in [facility] earlier in March. Apparently though he did [...] of left hip replacement (more content not included)...NormalSamaritan HospitalMagnesiumon 55-08-3337Qzkuolhys [Mass/Vol]2.0 mg/dLNormal 1.7-2.4BCentervilleComment on above:Performed By: #### MG #### [place], [place] [address]Operative Reporton 44-30-6621Gxntzvuar ReportPreoperative Diagnosis lumbar postoperative fluid collection with wound dehiscence Postoperative Diagnosis same Operation Lumbar I&D with wound closure Surgeon(s) [facility] TIDWELL, Randi Mesa (Surgeon - Primary) [employer] Mani Hannon PA-C (Aerobics Teacher) Anesthesia General Lupe TIDWELL, Elan Hurtado (Business Development Professional) Presley Pereira MD, Alejandro Thomas (Business Development Professional) Girish Gonzalez (Provider) Estimated Blood Loss 25 mL Findings small seroma Specimen(s) Sterile Body Sites Culture (Back Wound for aerobic,Tissue,Back) Anaerobic Culture (Back wound for anaerobic,Wound,Back) Complications none Catheters, Drains, Tubes Device: Wound Drain W/Trocar [id number] Electronically signed by Lalo LECHUGA Gustabo Sharpe 04/17/24 07:23 ESTNormBrecksville VA / Crille Hospital Sodiumon 54-14-2608Eredrd [Moles/Vol]134 mmol/BQhyawg343-340SrpypsuitSamaritan HospitalComment on above:Performed By: #### NA ####[facility] [place], [place] [address]Qpfqk Troughon 21-38-9426Azpqb Wcgxvn86.8 mcg/aYTkbroj05.0-15.0Samaritan HospitalComment on above: Performed By: #### VANCT #### [address] [address].eGFRon 19-27-2398Rnqahabwq GFR46 mL/min/1.73m?Low>=60Samaritan HospitalComment on above:Result Comment: [facility] have implemented the eGFR calculation [...] Age = yearsPerformed By: #### EGFR #### [facility] [address] [place] [address]MTV/Rhon 51-89-6504PKW/RhABO/Rh: O POSNormBrecksville VA / Crille HospitalComment on above:Performed By: #### VANCT #### [place] [address] [facility], [place] [address]IHEP Autoon 71-96-6021MWKI AutoNegativeNormalSamaritan HospitalComment on above:Performed By: #### ASA #### [facility] (UNKNOWN) [address] [facility], [place] [address]B59by 27-99-7587Dmjehflso (Vitamin B12) [Mass/Vol]422 pg/mL Hwgwof315-470LmxrpiubzCentervilleComment on above:Performed By: #### CD:[id number] #### [facility] [address] [place] [address], [place] [address]Cstho Metabolic Profileon 79-41-2099Kwqgy gap [Moles/Vol]8 mmol/LNormal4-12Samaritan HospitalComment on above:Performed By: #### CD:[id number] #### [address], [place] [address]Wxsmtnm [Mass/Vol]8.5 mg/dLNormal8.5-10.3BCentervilleComment on above:Performed By: #### CD:[id number] #### [address], [place] [address]Bzxsknpd [Moles/Vol]96 mmol/RAvg48-618OvtdkhcxoSamaritan HospitalComment on above:Performed By: #### CD:[id number] #### [address], [place] [address]LZ4 [Moles/Vol]26 mmol/KEjtnfh55-98CuuwlnbbiSamaritan HospitalComment on above:Performed By: #### CD:[id number] #### [address], [place] [address]Raifyejzhu [Mass/Vol]1.51 mg/dLHigh0.61-1.24Samaritan HospitalComment on above:Performed By: #### CD:[id number] #### [address], [place] [address]Dxvfmby [Mass/Vol]85 mg/mGCiieep78-81HwyfvxcwlSamaritan HospitalComment on above:Performed By: #### CD:[id number] #### [address] [address]Idjnexptd [Moles/Vol]3.6 mmol/LNormal3.4-4.8BCentervilleComment on above:Performed By: #### CD:[id number] #### [address] [address]Jutdji [Moles/Vol]130 mmol/RZdr650-078GjddcgedwSamaritan HospitalComment on above:Performed By: #### CD:[id number] #### [address] [address]Btxh nitrogen [Mass/Vol]23 mg/dLNormal8-26Samaritan HospitalComment on above:Performed By: #### CD:[id number] #### [address] [address]Cwhs nitrogen/Creatinine [Mass ratio]15.2 mg/wrKiglaq68.0-20.0 Samaritan HospitalComment on above:Performed By: #### CD:[id number] #### [address] [address]XDN w/ Diffon 55-82-5697Gpifecohxwn distribution width (RBC) [Ratio]15.4 %High11.6-14.8BCentervilleComment on above: Performed By: #### CBC ####[address] [address]Uvnrhheueb (Bld) [Volume fraction]23.3 %Low41.0-53.0 Samaritan HospitalComment on above:Performed By: #### CBC ####[address] [address]Wyrbwbbgzr (Bld) [Mass/Vol]7.7 g/dLLow13.5-17.5BCentervilleComment on above:Performed By: #### CBC ####[address] [address]UTK (RBC) [Entitic mass]32.0 ijMbmdin12.0-35.0Samaritan HospitalComment on above:Performed By: #### CBC ####[place] [address]MCHC33.2 %Pescbw32.0-37.0 Samaritan HospitalComment on above:Performed By: #### CBC ####[place] [address]MCV (RBC) [Entitic vol]96.5 nVLguxvr51.0-100.0Samaritan HospitalComment on above:Performed By: #### CBC ####[address] [address]Tiufxygm533 x10*3/hhCUpsnhz755-607Xmenxbhll Valley Health SystemComment on above:Performed By: #### CBC ####[place] [address]Platelet mean volume (Bld) [Entitic vol]6.9 fL Normal6.7-10.6BCentervilleComment on above:Performed By: #### CBC ####[address] [address]HSW2.41 x10*6/mcLLow4.30-5.80Samaritan HospitalComment on above:Performed By: #### CBC ####[address] [address]OHT8.5 x10*3/mcLNormal4.5-11.0Samaritan HospitalComment on above:Performed By: #### CBC ####[address] [address]Yxbbinotft Progress Noteon 65-85-8894Bixjafpzhg Progress NoteSubjective PCP: Opal Ga DO ([place], [place]) Cardio: Kathy Mcintyre DO ([facility], [place], [place]) 83M with permanent AF, CHF, CKD, hypercholesterolemia transferred from [facility] for continued treatment of lower extremity edema and perioperative cardiology evaluation. Lower extremity edema suspected of being more related to chronic lymphedema than decompensated heart failure. Interval History: - Surgery reportedly planned for Tuesday, 04/17 at 6 am - No significant events overnight - Fluid balance -720 mL yesterday and -1.1 L since admission to [facility] (-4.7 L at [facility] prior to transfer) - Lower extremity edema decreasing - Denies chest pain, dyspnea, palpitations, or lightheadedness Cardiac Testing Echocardiography > 04/13/24: (Limited) EF 45-50%, mild RV enlargement with mildly reduced systolic function, marked LAE, moderate MARCIA ([facility]) Objective Vitals & Measurements T: 36.7 ?C [...] signed by Frankie Dallas DO 04/16/24 10:16 ESTNormBrecksville VA / Crille Hospital Diff Autoon 28-88-5991Ousw Absolute0.1 x10*3/mcLNormal0.0-0.2BCentervilleComment on above:Performed By: #### .Automated Diff ####[address] [address]Syzonlwyo/100 WBC (Bld)0.8 %Normal0.0-1.2Bl[facility] Valley Health SystemComment on above:Performed By: #### .Automated Diff ####[address] [address]Zud Absolute0.3 x10*3/mcLNormal0.0-0.4BKettering Health Main Campus SystemComment on above:Performed By: #### .Automated Diff ####[address] [address]Hopkeujlwla/100 WBC (Bld)3.8 %Normal0.0-6.1 [facility] SystemComment on above:Performed By: #### .Automated Diff ####[address] [address]Tnfvs Absolute2.5 x10*3/mcLNormal1.0-4.8BKettering Health Main Campus SystemComment on above:Performed By: #### .Automated Diff ####[address] [address]Odklpeefmqg/100 WBC (Bld)33.2 %Wyykxv47.2-40.8 Samaritan HospitalComment on above:Performed By: #### .Automated Diff ####[address] [address]Oobu Absolute0.5 x10*3/mcLNormal0.3-1.1BCentervilleComment on above:Performed By: #### .Automated Diff ####[address] [address]Ugrbvsykp/100 WBC (Bld)6.6 %Normal4.7-13.9BKettering Health Main Campus SystemComment on above:Performed By: #### .Automated Diff ####[address] [address]Vtkmcz Absolute4.1 x10*3/mcLNormal1.8-7.7BKettering Health Main Campus SystemComment on above:Performed By: #### .Automated Diff ####[address] [address]Rsqbuv Auto55.6 %Nitngf26.2-70.8BCentervilleComment on above:Performed By: #### .Automated Diff ####[address] [address]Plcdzvtphz 04-16-2024 Ferritin Zmn756.5 ng/gDYpdclq87.9-336.2BCentervilleComment on above:Performed By: #### FERR ####[address] [address]Lmkreq Lvlon 55-09-9631Stwjlc Lvl5.9 ng/mLNormal>=5.9 Samaritan HospitalComment on above:Result Comment: A WHO Technical Consultation has determined that deficient Folate concentrations are considered to be less than 4 ng/mL.Performed By: #### FOL ####[address] [address]Cwc & Hcton 39-11-7412Gwojcrduim (Bld) [Volume fraction]26.1 %Low41.0-53.0Samaritan HospitalComment on above: Performed By: #### CBC #### [address] [address]Ekeqlijdkl (Bld) [Mass/Vol]9.0 g/dLLow13.5-17.5BCentervilleComment on above:Performed By: #### CBC #### [address] [address]Qvemowbzoxt 44-03-1748Yccneycjn [Mass/Vol]2.0 mg/dLNormal 1.7-2.4BCentervilleComment on above:Performed By: #### MG ####[address] [address]Blewv Count on 34-83-5788Tiqnqyquw Retic Count0.82 %Normal0.80-2.50Samaritan HospitalComment on above:Performed By: #### CD:[id number] #### [address] [address]Vrtkcdkxmu (Bld) [Volume fraction]23.0 %Low41.0-53.0Samaritan HospitalComment on above:Performed By: #### CD:[id number] #### [address] [address]Crr Abs0.0370 x10*6/mcLNormalSamaritan Hospital Comment on above:Performed By: #### CD:[id number] #### [address] [address]Oewedwnryqid1.6 %Normal0.8-2.5BCenterville Comment on above:Performed By: #### CD:[id number] #### [address] [address]RVQLrc 84-00-5143Wizm [Mass/Vol]26 ug/cZTaj00-718CqtzueoskSamaritan HospitalComment on above:Performed By: #### TIBC ####[address] [address]Uzco Sat11.6 %Low>=16.0 Samaritan HospitalComment on above:Performed By: #### TIBC ####[address] [address]JPHQ882 mcg/cRLdv246-439NqccazzvrSamaritan HospitalComment on above:Performed By: #### TIBC ####[address] [address] Transferrin [Mass/Vol]160 mg/dDHyj948-766UgmqmhysnSamaritan HospitalComment on above:Performed By: #### TIBC ####[address] [address].AMI 2 Hron Hour Vbomwuvuu42.8 ng/mLNormal 17.4-105.7BCentervilleComment on above:Performed By: #### MG #### [address] [address] Hour Troponin<0.01Hkwrni7.00-0.03Samaritan HospitalComment on above:Result Comment: An increased Troponin-I value, in the absence of myocardial ischemia, may indicate other etiologies of cardiac damage. 99th Percentile Cutoff for Negative/Positive: Negative <= 0.03 Positive >= 0.04Performed By: #### MG #### [address] [address].eGFRon 07-60-1762Hxbyffwdb GFR55 mL/min/1.73m?Low>=60Samaritan HospitalComment on above:Result Comment: [facility] have implemented the eGFR calculation [...] or 1 Age = yearsPerformed By: #### CD:[id number] #### [address] [address]LKBhd 37-23-2204Pigyrancwut peptide B (Bld) [Mass/Vol]166 pg/mL High0-100Samaritan HospitalComment on above:Performed By: #### CD:[id number] #### [address] [address]MCQ w/ Diffon 48-07-9373Cobfohouhbi distribution width (RBC) [Ratio]15.7 %High11.6-14.8BCentervilleComment on above: Performed By: #### CBC #### [address], [place] [address]Ptulvzcvpq (Bld) [Volume fraction]26.7 %Low41.0-53.0Samaritan HospitalComment on above:Performed By: #### CBC #### [address] [address]Wfbnmkupmq (Bld) [Mass/Vol]8.9 g/dLLow13.5-17.5BCentervilleComment on above:Performed By: #### CBC #### [address] [address]XAG (RBC) [Entitic mass]32.2 cxExehti73.0-35.0Samaritan HospitalComment on above:Performed By: #### CBC #### [address] [address]TYDL69.5 %Ngeswv33.0-37.0Samaritan HospitalComment on above:Performed By: #### CBC #### [address] [address]NFN (RBC) [Entitic vol]96.1 jAPvnfmi39.0-100.0Samaritan HospitalComment on above:Performed By: #### CBC #### [address] [address]Rzjiggtu836 x10*3/voGTeakay497-348SgdcegbgdSamaritan HospitalComment on above:Performed By: #### CBC #### [address] [address]Ubkqqiwg mean volume (Bld) [Entitic vol]6.7 fLNormal6.7-10.6 Samaritan HospitalComment on above:Performed By: #### CBC #### [address] [address]SDH1.78 x10*6/mcLLow4.30-5.80[facility] Comment on above:Performed By: #### CBC #### [address] [address]PBI2.7 x10*3/mcLNormal4.5-11.0[facility] Comment on above:Performed By: #### CBC #### [address] [address]RPNnu 16-27-9220Ynzkgub [Mass/Vol]3.0 g/dLLow3.2-4.9BCentervilleComment on above:Performed By: #### CBC #### [address] [address]Xcfsajr/Globulin [Mass ratio]0.8 {ratio}Low1.1-2.2BCentervilleComment on above:Performed By: #### CBC #### [address] [address]Rqt Mvhr316 IU/OIugv04-09NawbydteeSamaritan HospitalComment on above:Performed By: #### CBC #### [address] [address]LGQ [Catalytic activity/Vol]10 U/OAvw23-73OjazzlmqcSamaritan HospitalComment on above:Performed By: #### CBC #### [address] [address]Cvrjs gap [Moles/Vol]7 mmol/LNormal4-12Samaritan HospitalComment on above:Performed By: #### CBC #### [address] [address]EPH [Catalytic activity/Vol]19 U/WOnvwec61-39HacixgcrsSamaritan HospitalComment on above:Performed By: #### CBC #### [address] [address]Hvjo Total0.8 mg/dLNormal0.3-1.2BCenterville Comment on above:Performed By: #### CBC #### [address] [address]Bndqnvu [Mass/Vol]8.5 mg/dLNormal8.5-10.3[facility] Health SystemComment on above:Performed By: #### CBC #### [address] [address]Gcyxsldo [Moles/Vol]95 mmol/VNzj63-397ThmldolmbSamaritan HospitalComment on above:Performed By: #### CBC #### [address] [address]JJ4 [Moles/Vol]27 mmol/XJnruxs71-47UpmsroabpSamaritan HospitalComment on above:Performed By: #### CBC #### [address] [address]Gzijjelluf [Mass/Vol]1.30 mg/dLHigh0.61-1.24Samaritan HospitalComment on above:Performed By: #### CBC #### [address] [address]Xhukicu [Mass/Vol]91 mg/vHGwmpkv58-14FsivphoiaSamaritan HospitalComment on above:Performed By: #### CBC #### [address] [address]Xkqymqwmd [Moles/Vol]3.2 mmol/LLow3.4-4.8BCentervilleComment on above:Performed By: #### CBC #### [address] [address]Xooxtqf [Mass/Vol]6.6 g/dLNormal6.5-8.1BCentervilleComment on above:Performed By: #### CBC #### [address] [address]Flskev [Moles/Vol]129 mmol/FSfs378-484EoeodqxjcSamaritan HospitalComment on above:Performed By: #### CBC #### [address] [address]Usik nitrogen [Mass/Vol]25 mg/dLNormal8-26Samaritan HospitalComment on above:Performed By: #### CBC #### [address] [address]Magr nitrogen/Creatinine [Mass ratio]19.2 mg/xsQwyegw74.0-20.0 Samaritan HospitalComment on above:Performed By: #### CBC #### [facility] [address] [place], [place] [address]Gefrujvefs Consultationon 95-94-3932Vucmrkmytp Consultation Chief Complaint Surgery canceled at [facility] due to swollen legs Reason for Consultation Preoperative cardiology evaluation History of Present Illness PCP: Opal Ga DO ([place], [place]) Cardio: Kathy Mcintyre DO ([place], [place]) 83M with permanent AF, CHF, CKD, hypercholesterolemia transferred from [facility] for continued treatment of lower extremity edema and perioperative cardiology evaluation. - Preop cardiology evaluation by Dr. Mcintyre (02/16/24) reported LVEF 50% by echo - Underwent lumbar decompression with fusion by Dr. Man at [facility] on 02/21/24 - Surgery reportedly complicated by decompensated CHF > Family member claims [facility] Hospitalist gave too much IV fluid and didn't give diuretics - Post-op echo reportedly showed LVEF 35-40% (02/23/24) - Discharged to [facility] in [place], [place], for post-acute rehab - Subsequently developed acute urinary retention, LIS, and acute CHF requiring care at [facility] leading to indwelling Chou catheter - Evaluated in spine clinic 03/23 for concern about surgical site drainage - Presented to [facility] 04/13 for planned I&D but procedure canceled due to 3+ lower extremity edema and elevated BNP level - Admitted to [facility] 04/13/24 for treatment of acute on chronic systolic heart failure - NT-pro-BNP elevated at 4117 (normal is <1800) - High sensitivity troponin I elevated with flat trend (121.8, 116.3, 123.1) - CXR (04/13) report describes mild cardiomegaly, hyperinflated lungs, and minimal bibasilar atelectasis - Admitting physician at [place] documented the patient had no shortness of breath, no JVD, and clear lungs on auscultation - Limited echo showed LVEF 45-50% - Documented fluid balance at [facility] on 04/14 and 04/15 (prior to transfer): -3.0 L and -1.7L - Transferred to [facility] for preoperative cardiology evaluation before rescheduling I&D - Patient currently denies chest pain, shortness of breath, cough, orthopnea, palpitations, or lightheadedness - Reportedly has chronic edema for which he has used lymphedema pumps nightly for several years Cardiac Testing Echocardiography > 04/13/24: (Limited) EF 45-50%, mild RV enlargement with mildly reduced systolic function, marked LAE, moderate MARCIA ([facility]) Physical Exam Vitals & Measurements T: 38 [...] had acute decompensated CHF upon admission to [facility] > Lower extremity edema is chronic in [...] with fusion (02/2024) [employer] (more content not included)...[facility] [id number] Absolute0.1 x10*3/mcLNormal0.0-0.2BCentervilleComment on above:Performed By: #### .Automated Diff ####[address] [address]Yjzmzsbwe/100 WBC (Bld)0.7 % Normal0.0-1.2BCentervilleComment on above:Performed By: #### .Automated Diff ####[address] [address]Zfn Absolute0.3 x10*3/mcLNormal0.0-0.4BCentervilleComment on above:Performed By: #### .Automated Diff ####[address] [address]Cqkpzrygxdv/100 WBC (Bld)3.9 %Normal0.0-6.1 Samaritan HospitalComment on above:Performed By: #### .Automated Diff ####[address] [address]Nvfye Absolute2.2 x10*3/mcLNormal1.0-4.8BCentervilleComment on above:Performed By: #### .Automated Diff ####[address] [address]Mwgfxnkacbe/100 WBC (Bld)25.5 %Low27.2-40.8BCentervilleComment on above:Performed By: #### .Automated Diff ####[address] [address]Egjf Absolute0.6 x10*3/mcLNormal0.3-1.1BCentervilleComment on above:Performed By: #### .Automated Diff ####[address] [address]Xjsesxtqx/100 WBC (Bld)6.5 %Normal4.7-13.9BCentervilleComment on above:Performed By: #### .Automated Diff ####[address] [address]Mylaad Absolute5.5 x10*3/mcLNormal1.8-7.7BCentervilleComment on above:Performed By: #### .Automated Diff ####[address] [address]Jhrrmr Auto63.4 %Vlnxfa01.2-70.8BCentervilleComment on above:Performed By: #### .Automated Diff ####[address] [address]VWMT, PCRon 27-96-7649QGP ONLY Result Called?NoNormalSamaritan HospitalComment on above: Performed By: #### MG #### [address] [address]Zezdeksllfl Resistant Staph aurus(MRSA)Not detectedNormalNot DetectedSamaritan HospitalComment on above:Result Comment: Mutations or polymorphisms in primer or probe binding regions may affect detectionof new or unknown MRSA variants resulting in a false negative. The [employer] Xpert MRSA Assay is a qualitative in [...] to the clinician.Performed By: #### MG #### [address] [address]Rxxijqgusdm 76-82-4270Hbzualngm [Mass/Vol]1.9 mg/dLNormal 1.7-2.4BCentervilleComment on above:Performed By: #### MG #### [address] [address]Uassijmkdwre 62-33-5625Ggznhxfgh [Mass/Vol]3.1 mg/dLNormal 2.5-4.6BCentervilleComment on above:Performed By: #### PHOS ####[address] [address]Uqgltbxe-Icr 53-20-8712Wfzxkylq I.cardiac [Mass/Vol]ng/mLNormal0.00-0.03Samaritan HospitalComment on above:Result Comment: An increased Troponin-I value, in the absence of myocardial ischemia, may indicate other etiologies of cardiac damage. 99th Percentile Cutoff for Negative/Positive: Negative <= 0.03 Positive >= 0.04Performed By: #### TROP ####[address] [address]Uhpcbsnio Auto (Bld) [#/Vol]on 70-16-8276Wvgpimvws (Bld) [#/Vol]Automated basophil count0.0-0.1[facility] Basophils/100 WBC Auto (Bld)on 31-08-6477Osacvhtgt/100 WBC (Bld)Automated basophil %0.2-2.0[facility] CenterCholesterol in LDL Calc [Mass/Vol]on 37-12-5269Akavhvzqzav in LDL [Mass/Vol]Cholesterol in LDL [Mass/volume] in Serum or Plasma by calculationUniversity Hospitals Ahuja Medical Center Comment on above:<100 mg/dl PHUDBOR744-800 mg/dl NEAR OR ABOVE ZLXVZWJ661-409 mg/dl BORDERLINE TJDV185-861 mg/dl HIGH>190 mg/dl VERY HIGHCholesterol in VLDL Calc [Mass/Vol]on 39-43-4170Dfctlfccfaz in VLDL [Mass/Vol]Cholesterol in VLDL [Mass/volume] in Serum or Plasma by calculationUniversity Hospitals Ahuja Medical Center Eosinophils/100 WBC Auto (Bld)on 26-25-4474Lkidnapsdhb/100 WBC (Bld)Automated eosinophil %0.9-7.0[facility] CenterErythrocyte distribution width Auto (RBC) [Ratio]on 48-37-8883Thmcticheyo distribution width (RBC) [Ratio]Erythrocyte distribution width [Ratio] by Automated count11.0-15.0 [facility] CenterEstimated glomerular filtration rate (GFR) non- Americanon 20-53-8540FEM/1.73 sq M.predicted among non-blacks MDRD (S/P/Bld) [Vol rate/Area]Estimated glomerular filtration rate (GFR) non- AmericanLow>=60 mL/min/1.73m 2FCleveland Clinic FoundationGlobulin Calc (S) [Mass/Vol]on 37-57-1080Jaohgigb (S) [Mass/Vol]Serum globulin measurement by calculation (mass/volume)[facility] CenterHematocrit Auto (Bld) [Volume fraction]on 72-04-2227Crxjrqoyqg (Bld) [Volume fraction]Hematocrit [Volume Fraction] of Blood by Automated iwtmnMjf36.0-54.0[facility] CenterHemoglobin [Mass/volume] in Bloodon 36-16-9974Guocujbwbe (Bld) [Mass/Vol]Hemoglobin [Mass/volume] in GeyquJni22.0-18.0[facility] CenterLaboratory - Chemistry and Chemistry - challengeon 04-14-2024 Bilirubin Ql (U)NegativeNEGATIVEUniversity Hospitals Ahuja Medical CenterGlucose (U) [Mass/Vol]NegativeNEGATIVEUniversity Hospitals Ahuja Medical CenterKetones Ql (U) NegativeNEGATIVEUniversity Hospitals Ahuja Medical CenterpH (U)6.5 [pH]5.0-9.0[facility] Ferry Hospitalpecific gravity (U) [Rel density]1.0101.005-1.025 [facility] CenterUrobilinogen Qn (U)0.2 {Raghu'U}/dL0.2-1.0 [facility] CenterAlbumin [Mass/Vol]2.2 g/dLLow3.4-5.0[facility] CenterALP [Catalytic activity/Vol]104 U/J63-147RxrujsqdmUniversity Hospitals Ahuja Medical CenterALT [Catalytic activity/Vol]8 U/LMhc91-30FxhsbwjphUniversity Hospitals Ahuja Medical CenterAST [Catalytic activity/Vol]18 U/Z79-73EsvgbvkffUniversity Hospitals Ahuja Medical CenterBilirubin [Mass/Vol]0.4 mg/dL0.2-1.0[facility] CenterCalcium [Mass/Vol]8.6 mg/dL8.5-10.1[facility] Chloride [Moles/Vol]100 mmol/D67-900RljehpcixUniversity Hospitals Ahuja Medical CenterCholesterol [Mass/Vol]107 mg/dL<=200[facility] CenterCholesterol in HDL [Mass/Vol]48 mg/hI63-58UolpnkhieUniversity Hospitals Ahuja Medical CenterComment on above:> or =60 mg/dl - LOW CARDIOVASCULAR RISK<40 mg/dl - HIGH CARDIOVASCULAR RISKCO2 [Moles/Vol]29.7 mmol/L21.0-32.0[facility] CenterCreatinine [Mass/Vol]1.43 mg/dLHigh0.70-1.30[facility] CenterGFR/1.73 sq M.predicted MDRD (S/P/Bld) [Vol rate/Area]57 mL/min/{1.73_m2}Low>=60 mL/min/1.73m 2FC[facility] Clinic FoundationGlucose [Mass/Vol]73 mg/dLLow 74-106[facility] CenterMagnesium [Mass/Vol]1.8 mg/dL1.8-2.4 [facility] CenterNatriuretic peptide B (Bld) [Mass/Vol]4117.0 pg/mLCritically high<=1800.0[facility] Medical CenterComment on above: RESULTS CALLED TO LORENZA VELAZQUEZ,RNPotassium [Moles/Vol]3.6 mmol/L3.5-5.1 [facility] CenterProtein [Mass/Vol]6.2 g/dLLow6.4-8.2FSumma Health Akron Campusodium [Moles/Vol]138 mmol/B797-668DcbrqolcpUniversity Hospitals Ahuja Medical CenterTriglyceride [Mass/Vol]61 mg/dL<=150[facility] CenterTSH Qn10.469 m[IU]/LHigh0.358-3.740[facility] CenterUrea nitrogen [Mass/Vol]22.0 mg/dLHigh7.0-18.0[facility] CenterUrea nitrogen/Creatinine [Mass ratio]15.4 mg/mgUniversity Hospitals Ahuja Medical Center Laboratory - Hematology and Cell countson 73-94-7955Qiktomxq granulocytes/100 WBC (Bld)0.3 %0.0-0.5FC[facility] FoundationLaboratory - Specimen informationon 75-84-8982Lvdfiwotfu (U)CLEARCLEARFCleveland Clinic FoundationColor (U)LT. YELLOWYELLOWUniversity Hospitals Ahuja Medical CenterLaboratory - Urinalysison 89-66-2798Ckfoiwoqd esterase Test strip Ql (U)MODERATEAbnormal NEGATIVEUniversity Hospitals Ahuja Medical CenterMucus Ql (Urine sed)NONE SEENNONE SEEN [facility] CenterNitrite Ql (U)NegativeNEGATIVEUniversity Hospitals Ahuja Medical CenterProtein Ql (U)NegativeNEG/TRACEUniversity Hospitals Ahuja Medical CenterLeukocytes [#/volume] corrected for nucleated erythrocytes in Blood by Automated counon 13-50-8966YVU corrected for nucl RBC Auto (Bld) [#/Vol] Leukocytes [#/volume] corrected for nucleated erythrocytes in Blood by Automated coun4.0-11.0[facility] Medical CenterLymphocytes Auto (Bld) [#/Vol]on 68-62-4999Itmoloprkjt (Bld) [#/Vol]Lymphocytes [#/volume] in Blood by Automated count1.2-3.8[facility] CenterLymphocytes/100 WBC Auto (Bld)on 12-43-8230Pposwvadvmb/100 WBC (Bld)Lymphocytes/100 leukocytes in Blood by Automated count20.5-60.0[facility] Medical CenterMCH Auto (RBC) [Entitic mass]on 92-42-5421IKQ (RBC) [Entitic mass]MCH [Entitic mass] by Automated count 25.9-34.0[facility] Medical CenterMCHC Auto (RBC) [Mass/Vol]on 19-69-2246BEUM (RBC) [Mass/Vol]MCHC [Mass/volume] by Automated count29.9-35.2 [facility] CenterMCV Auto (RBC) [Entitic vol]on 74-37-0905GOE (RBC) [Entitic vol]MCV [Entitic volume] by Automated wnvfdSfma43.0-94.0[facility] Medical CenterMonocytes Auto (Bld) [#/Vol]on 81-51-8062Pnfhrhhth (Bld) [#/Vol]Automated blood monocyte count0.3-0.8[facility] Monocytes/100 WBC Auto (Bld)on 09-46-4965Yqmhejruu/100 WBC (Bld)Automated monocyte %1.7-12.0[facility] Medical CenterNeutrophils Auto (Bld) [#/Vol]on 62-56-1394Smkwtjxtpdl (Bld) [#/Vol]Neutrophils [#/volume] in Blood by Automated count1.4-6.5FC[facility] Clinic FoundationNeutrophils/100 WBC Auto (Bld)on 54-65-4395Wozqqmxoxnd/100 WBC (Bld)Automated neutrophil %43.0-75.0 [facility] CenterNo Panel Informationon 78-30-1735Qywtu Bacteria SMALL #/HPFAbnormalNONE SEENUniversity Hospitals Ahuja Medical CenterUrine Culture ReflexedALREADY ORDEREDUniversity Hospitals Ahuja Medical CenterUrine Occult Blood NegativeNEGATIVEUniversity Hospitals Ahuja Medical CenterUrine Other CastsNONE SEEN #/LPFNONE [facility] HospitalUrine Other CrystalsNone Seen #/HPFNone [facility] HospitalUrine RBCNONE SEEN #/HPF0-2 [facility] CenterUrine Squamous Epithelial CellsNONE SEEN #/LPF NONE/RAREUniversity Hospitals Ahuja Medical CenterUrine HZD23-44 #/HPFAbnormalNONE SEEN [facility] CenterALREADY ORDEREDUniversity Hospitals A[facility] Medical CenterNONE SEEN #/LPFNONE/RAREUniversity Hospitals Ahuja Medical CenterNone Seen #/HPF 0-2FSumma Health Akron CampusMALL #/HPFAbnormalNONE SEENUniversity Hospitals Ahuja Medical CenterNegativeNEG/TRACEUniversity Hospitals Ahuja Medical CenterCLEAR CLEARUniversity Hospitals Ahuja Medical CenterLT. YELLOWYELLOWUniversity Hospitals Ahuja Medical CenterMODERATEAbnormalNEGATIVEUniversity Hospitals A[facility] Medical CenterNONE SEENNONE SEENUniversity Hospitals A[facility] Center6.55.0-9.0[facility] 1.0101.005-1.025[facility]0.2 EU/dL0.2-1.0[facility]10-20 #/HPFAbnormalTUCSON VA MEDICAL CENTERE [facility] Children's HospitalTroponin I High Ugjqzdjreve742.8 pg/mLCritically high4.0-76.1FC[facility] Clinic FoundationComment on above:RESULTS CALLED TO Yloi WillRNCUT-OFF POINTS HAVE BEEN ESTABLISHED BASED ON THE FOURTHUNIVERSAL DEFINITION OF MYOCARDIAL INFARCTION. THE UPPERREFERENCE LIMIT (URL) OF TROPONIN, DEFINED THE 99THPERCENTILE OF cTnI DISTRIBUTION IN A REFERENCE POPULATION,HAS BEEN CONFIRMED THE DECISION THRESHOLD FOR MIDIAGNOSIS.99TH PERCENTILE = 76.2 PG/MLNOTE: HIGH-SENSITIVITY TROPONIN ASSAY IS NOT INTENDED TOBEUSED IN ISOLATION BUT SHOULD BE INTERPRETED IN CONJUNCTIONWITH OTHER DIAGNOSTIC AND CLINICAL INFORMATION.121.8 pg/mLCritically high4.0-76.1[facility] Eosinophils # (Auto)0.4 10 3/uL0.0-0.7FC[facility] Clinic FoundationImmature Granulocyte # (Auto)0.02 10 3/uL0.00-0.03[facility]10.469 u[iU]/mLHigh0.358-3.740[facility]4117.0 pg/mLCritically high<=1800.0[facility]1.8 mg/dL1.8-2.4[facility]107 mg/dL<=200[facility]48 mg/dL40-60 [facility]2.2 g/dLLow3.4-5.0[facility]0.4 10 3/uL0.0-0.7[facility]104 U/Z01-087LoilscbrrUniversity Hospitals Ahuja Medical Center61 mg/dL<=150[facility]8 U/LLow 16-63[facility]18 U/J72-38LwuxuhvqpUniversity Hospitals Ahuja Medical Center15.4FC[facility] Foundation0.02 10 3/uL0.00-0.03[facility]22.0 mg/dLHigh7.0-18.0[facility] 0.3 %0.0-0.5[facility]8.6 mg/dL8.5-10.1[facility]100 mmol/S76-238WgdhapkooUniversity Hospitals Ahuja Medical Center29.7 mmol/L 21.0-32.0[facility]1.43 mg/dLHigh0.70-1.30[facility]57Low>=60 mL/min/1.73m 2[facility] 73 mg/wFDqy74-901TuiplxftqUniversity Hospitals Ahuja Medical Center3.6 mmol/L3.5-5.1[facility]138 mmol/A421-058SweizewfaUniversity Hospitals Ahuja Medical Center0.4 mg/dL0.2-1.0[facility]6.2 g/dLLow6.4-8.2FC[facility] FoundationPlatelet mean volume Auto (Bld) [Entitic vol]on 85-72-5777Zwcohgxw mean volume (Bld) [Entitic vol]Platelet mean volume [Entitic volume] in Blood by Automated countLow9.5-13.5[facility] Platelets Auto (Bld) [#/Vol]on 54-01-1722Xvyjollvv (Bld) [#/Vol]Platelets [#/volume] in Blood by Automated -323ZsuwjoqcqUniversity Hospitals Ahuja Medical Center RBC Auto (Bld) [#/Vol]on 78-98-5934LXM (Bld) [#/Vol]Erythrocytes [#/volume] in Blood by Automated countLow4.70-6.10Martins Ferry Hospitalerum or plasma albumin/globulin mass ratioon 02-19-6966Lhwozoo/Globulin [Mass ratio] Serum or plasma albumin/globulin mass ratioUniversity Hospitals Ahuja Medical Center Serum or plasma anion gap determinationon 39-89-3687Tzlzf gap [Moles/Vol]Serum or plasma anion gap determinationMartins Ferry Hospitalerum or plasma total cholesterol/high density lipoprotein (HDL) cholesterol mass william 84-21-8595Mrhnqqvxgxg.total/Cholesterol in HDL [Mass ratio]Serum or plasma total cholesterol/high density lipoprotein (HDL) cholesterol mass ratUniversity Hospitals Ahuja Medical CenterComment on above:3.3 - 4.4 LOW RISK4.4 - 7.1 AVERAGE RISK7.1 - 11.0 MODERATE RISK>11.0 HIGH RISKActivated partial thromboplastin time (aPTT) in platelet poor plasma by coagulation aon 58-37-8123mWLR Coag (PPP) [Time]Activated partial thromboplastin time (aPTT) in platelet poor plasma by coagulation a22.3-36.2FC[facility] FoundationBasophils Auto (Bld) [#/Vol]on 42-04-2764Fudtrqyiu (Bld) [#/Vol]Automated basophil count0.0-0.1 [facility] CenterBasophils/100 WBC Auto (Bld)on 04-13-2024 Basophils/100 WBC (Bld)Automated basophil %0.2-2.0[facility] CenterEosinophils/100 WBC Auto (Bld)on 89-10-8171Flrbhqwuhpf/100 WBC (Bld) Automated eosinophil %0.9-7.0[facility] Medical CenterErythrocyte distribution width Auto (RBC) [Ratio]on 38-52-7215Yddtljwfcrg distribution width (RBC) [Ratio]Erythrocyte distribution width [Ratio] by Automated count11.0-15.0 [facility] CenterEstimated glomerular filtration rate (GFR) non- Americanon 91-01-0426NSX/1.73 sq M.predicted among non-blacks MDRD (S/P/Bld) [Vol rate/Area]Estimated glomerular filtration rate (GFR) non- AmericanLow>=60 mL/min/1.73m 2FC[facility] Clinic FoundationGlobulin Calc (S) [Mass/Vol]on 24-89-6055Ozgbqdtj (S) [Mass/Vol]Serum globulin measurement by calculation (mass/volume)[facility] Medical CenterHematocrit Auto (Bld) [Volume fraction]on 68-73-5061Ftrnrodtic (Bld) [Volume fraction]Hematocrit [Volume Fraction] of Blood by Automated abkgtNvc36.0-54.0[facility] Medical CenterHemoglobin [Mass/volume] in Bloodon 45-40-5466Xetslcwbfy (Bld) [Mass/Vol]Hemoglobin [Mass/volume] in YconiKzg61.0-18.0[facility] Medical CenterINR in Platelet poor plasma by Coagulation assayon 41-54-2863PYY Coag (PPP) [Relative time]INR in Platelet poor plasma by Coagulation assay [facility]ja Medical CenterComment on above:DESIRED INR:2.0-3.0 CONDITIONS NOT LISTED BELOW2.5-3.5 FOR PROSTHETIC HEART VALVE REPLACEMENT2.5-3.5 RECURRENT THROMBOSISLaboratory - Chemistry and Chemistry - challengeon 86-54-2712Zubsdax [Mass/Vol]2.5 g/dLLow3.4-5.0[facility] CenterALP [Catalytic activity/Vol]118 U/YRsfv90-951YtjirvawvUniversity Hospitals Ahuja Medical CenterALT [Catalytic activity/Vol]10 U/RIwr44-76EsmdkjkmdUniversity Hospitals Ahuja Medical CenterAST [Catalytic activity/Vol]25 U/J73-24PtgosuxcuUniversity Hospitals Ahuja Medical CenterBilirubin [Mass/Vol]0.5 mg/dL0.2-1.0[facility] Medical CenterCalcium [Mass/Vol]8.9 mg/dL 8.5-10.1FC[facility] FoundationChloride [Moles/Vol]99 mmol/L98-107 [facility] Medical CenterCO2 [Moles/Vol]31.5 mmol/L21.0-32.0[facility] CenterCreatinine [Mass/Vol]1.62 mg/dLHigh0.70-1.30[facility] CenterGFR/1.73 sq M.predicted MDRD (S/P/Bld) [Vol rate/Area]50 mL/min/{1.73_m2}Low>=60 mL/min/1.73m 2FC[facility] FoundationGlucose [Mass/Vol]80 mg/cP60-072WieyoveowUniversity Hospitals Ahuja Medical CenterNatriuretic peptide B (Bld) [Mass/Vol]2978.0 pg/mLCritically high<=1800.0[facility] Medical CenterComment on above:RESULTS CALLED TO MARIA INES CARUSO RN IN SURGERY BY Ivis Tobias at 1053Potassium [Moles/Vol]4.5 mmol/L3.5-5.1FC[facility] FoundationProtein [Mass/Vol]6.9 g/dL6.4-8.2[facility] Sodium [Moles/Vol]137 mmol/E266-097BkxnmscnyUniversity Hospitals Ahuja Medical CenterUrea nitrogen [Mass/Vol]21.0 mg/dLHigh7.0-18.0[facility] CenterUrea nitrogen/Creatinine [Mass ratio]13.0 mg/mgUniversity Hospitals Ahuja Medical Center Laboratory - Hematology and Cell countson 18-70-5333Vihnyifl granulocytes/100 WBC (Bld)0.3 %0.0-0.5FC[facility] Clinic FoundationLeukocytes [#/volume] corrected for nucleated erythrocytes in Blood by Automated counon 94-48-2350FFA corrected for nucl RBC Auto (Bld) [#/Vol]Leukocytes [#/volume] corrected for nucleated erythrocytes in Blood by Automated coun4.0-11.0[facility] Medical CenterLymphocytes Auto (Bld) [#/Vol]on 17-02-7576Dythmsmxhyd (Bld) [#/Vol]Lymphocytes [#/volume] in Blood by Automated count1.2-3.8[facility] Medical CenterLymphocytes/100 WBC Auto (Bld)on 04-13-2024 Lymphocytes/100 WBC (Bld)Lymphocytes/100 leukocytes in Blood by Automated count 20.5-60.0[facility] Medical CenterMCH Auto (RBC) [Entitic mass]on 59-00-6536FJS (RBC) [Entitic mass]MCH [Entitic mass] by Automated count25.9-34.0 [facility] Medical CenterMCHC Auto (RBC) [Mass/Vol]on 97-82-9750LGAL (RBC) [Mass/Vol]MCHC [Mass/volume] by Automated count29.9-35.2FC[facility] Clinic FoundationMCV Auto (RBC) [Entitic vol]on 31-55-9264OKM (RBC) [Entitic vol] MCV [Entitic volume] by Automated cgsjzWcts54.0-94.0[facility] Medical CenterMonocytes Auto (Bld) [#/Vol]on 28-80-8130Ffpddsykc (Bld) [#/Vol]Automated blood monocyte count0.3-0.8[facility] Medical CenterMonocytes/100 WBC Auto (Bld)on 46-94-6372Baggucsso/100 WBC (Bld)Automated monocyte %1.7-12.0 [facility] Medical CenterNeutrophils Auto (Bld) [#/Vol]on 04-13-2024 Neutrophils (Bld) [#/Vol]Neutrophils [#/volume] in Blood by Automated count 1.4-6.5FC[facility] Clinic FoundationNeutrophils/100 WBC Auto (Bld)on 35-89-0215Bgwxfygpuqm/100 WBC (Bld)Automated neutrophil %43.0-75.0[facility] CenterNo Panel Informationon 68-27-7852Udfiiexfedc # (Auto)0.4 10 3/uL0.0-0.7FC[facility] Clinic FoundationImmature Granulocyte # (Auto)0.02 10 3/uL0.00-0.03[facility] Medical CenterTroponin I High Sensitivity 123.1 pg/mLCritically high4.0-76.1FC[facility] Clinic FoundationComment on above:RESULTS CALLED TO Yoli Will RNCUT-OFF [...] OTHER DIAGNOSTIC AND CLINICAL INFORMATION.123.1 pg/mLCritically high4.0-76.1 [facility]2978.0 pg/mLCritically high<=1800.0[facility]0.4 10 3/uL0.0-0.7[facility]2.5 g/dLLow3.4-5.0[facility]118 U/ALgky00-787NbabjnomuUniversity Hospitals Ahuja Medical Center10 U/ONsu19-97QytlgsnkuUniversity Hospitals Ahuja Medical Center25 U/L 15-37[facility]0.02 10 3/uL0.00-0.03[facility]13.0[facility]0.3 %0.0-0.5[facility]21.0 mg/dLHigh7.0-18.0[facility] 8.9 mg/dL8.5-10.1[facility]99 mmol/O54-962UaisgvrdvUniversity Hospitals Ahuja Medical Center31.5 mmol/L21.0-32.0[facility]1.62 mg/dLHigh0.70-1.30[facility]50Low>=60 mL/min/1.73m 2 [facility]80 mg/oQ54-784YnzxfdziaUniversity Hospitals Ahuja Medical Center 4.5 mmol/L3.5-5.1[facility]137 mmol/J682-546PareqhuuqUniversity Hospitals Ahuja Medical Center0.5 mg/dL0.2-1.0[facility]6.9 g/dL 6.4-8.2FC[facility] FoundationPlatelet mean volume Auto (Bld) [Entitic vol]on 58-75-3601Poswfcii mean volume (Bld) [Entitic vol]Platelet mean volume [Entitic volume] in Blood by Automated count9.5-13.5FC[facility] Clinic FoundationPlatelets Auto (Bld) [#/Vol]on 32-70-4301Ofykvxjyc (Bld) [#/Vol]Platelets [#/volume] in Blood by Automated stpap085-619BibzezxvxUniversity Hospitals Ahuja Medical Center Prothrombin time (PT)on 27-30-9732RQ Coag (PPP) [Time]Prothrombin time (PT)High 9.0-11.6FCleveland Clinic FoundationRBC Auto (Bld) [#/Vol]on 75-84-8198NOB (Bld) [#/Vol]Erythrocytes [#/volume] in Blood by Automated countLow4.70-6.10 [facility] Hospitalerum or plasma albumin/globulin mass ratioon 42-95-0461Xbnlywv/Globulin [Mass ratio]Serum or plasma albumin/globulin mass ratioMartins Ferry Hospitalerum or plasma anion gap determinationon 12-73-3880Lzvmr gap [Moles/Vol]Serum or plasma anion gap determinationUniversity Hospitals Ahuja Medical CenterMagnetic resonance imaging reportOrdered By: Palmer Dejesus on 84-08-6189Qtkei reportWVUMEDICINE HARRISON [facility] Main [place] [address] [place] [address] MRI Report Signed Patient: Tavo Wallis Jr MR# : [id number] : 1940 Acct:[id number] Age/Sex: 83 / M ADM Date: 5 Loc: MR Room: Type: [facility] Attending Dr: Randi Batista MD Copies to: Randi Burris MD~ Ordering Provider: Randi Burris MD Date of Service: 04/03/24 MR/MR lumbar spine wo con: Z47.89 ([id number]) XR/XR pre/post mri xray: PRE AND POST [...] the foraminal and extraforaminal and lateral zone. Udveblsc-dj-bdghyy right and at least moderate left neural [...] No central canal or neural from narrowing. Zjgm-pn-tbsphfdq facet degeneration. MR/MR lumbar spine wo con [...] Palmer Dejesus M.D.04/03/2024 5:02 PM Dictation Location: [facility]--23 Transcribed By: [facility] 04/03/241701 Dictated By: Palmer Dejesus MD 04/03/24 1630 Signed By: 04/03/241701 [facility] Work Phone: xr pre/post mri xrayon 38-73-6588ZH pre/post mri xray NormalThe [facility] Medical CenterBasic Metabolic Panelon 17-84-0652Kzmlf gap [Moles/Vol]12.7 mmol/LNormal6.0-15.0The [facility] Medical CenterComment on above:Performed By: #### BMP ####[id number] [place] [address] USACalcium [Mass/Vol]8.2 mg/dLLow8.6-10.3The [facility] Medical CenterComment on above:Performed By: #### BMP ####[id number] [place] [address] USAChloride [Moles/Vol]93 mmol/L Qfo05-752Lta [facility] Medical CenterComment on above:Performed By: #### BMP ####[address] [place] [address] USACO2 [Moles/Vol]30.7 mmol/ZHiycry58.0-31.0The [facility] Medical CenterComment on above:Performed By: #### BMP ####[id number] [place] [address] USACreatinine [Mass/Vol]2.22 mg/dLHigh0.70-1.30The [facility] Medical CenterComment on above:Performed By: #### BMP ####[id number] [place] [address] USACreatinine Clr Calc Pkuqxsoh85.04NoCone Health Physician GroupComment on above:Result Comment: PERFORMED BY:[address] [address] [place], [place] [id number] MEDICAL DIRECTORJAJA CATES M.D. Performed By: #### BMP ####[address] [address] USAEstimated GFR28.859 mL/MinNoCone Health Physician GroupComment on above:Performed By: #### BMP ####[address] [address] USAGlucose [Mass/Vol]73 mg/dL Gzlqia84-918Cmq [facility] Physician GroupComment on above:Result Comment: Random Glucose Reference Range is dependent on time and content of last meal. Glucose of more than 200 mg/dL in a nonstressed, ambulatory subject supports the diagnosis of Diabetes Mellitus. ADA recommended reference rangePerformed By: #### BMP ####[address] [address] USAPotassium [Moles/Vol]3.4 mmol/LLow3.5-5.1The [facility] Physician GroupComment on above:Performed By: #### BMP ####[address] [address] USASodium [Moles/Vol]133 mmol/JEie290-992Xrw [facility] Physician GroupComment on above:Performed By: #### BMP ####[address] [address] USAUrea nitrogen [Mass/Vol]40 mg/dLHigh7-25The [facility] Physician GroupComment on above:Performed By: #### BMP ####[address] [address] [place] Calcium [Mass/volume] in Serum or PlasmaOrdered By: Michele Knight on 03-15-2024 Calcium [Mass/Vol]Calcium [Mass/volume] in Serum or PlasmaLow8.6-10.3FCleveland Clinic FoundationCarbon dioxide, total [Moles/volume] in Serum or Plasma Ordered By: Michele Knight on 44-65-6710QZ5 [Moles/Vol]Carbon dioxide, total [Moles/volume] in Serum or Mfomfy26.0-31.0[facility] Chloride [Moles/volume] in Serum or PlasmaOrdered By: Michele Knight on 03-15-2024 Chloride [Moles/Vol]Chloride [Moles/volume] in Serum or EgpitiUsi40-268FvrxcgogmUniversity Hospitals Ahuja Medical CenterCreatinine [Mass/volume] in Serum or PlasmaOrdered By: Michele Knight on 33-10-9541Lkzeyhtlxd [Mass/Vol]Creatinine [Mass/volume] in Serum or PlasmaHigh0.70-1.30[facility] Medical CenterGlucose [Mass/volume] in Serum or PlasmaOrdered By: Michele Knight on 37-17-7733Djwltlc [Mass/Vol]Glucose [Mass/volume] in Serum or Tkyxyi21-307QsefztdhgUniversity Hospitals Ahuja Medical CenterComment on above:ADA recommended reference rangeRandom Glucose Reference Range is dependent on time and content of last meal. Glucose of more than 200 mg/dL in a nonstressed, ambulatory subject supports the diagnosisof Diabetes Mellitus.No Panel InformationOrdered By: Michele Knight on 33-90-5478Mwmlncpwr GFR (CKD-EPI) 28.859 mL/MinUniversity Hospitals Ahuja Medical CenterPharmacy Creatinine Clearance (Chem26.04[facility]28.859 mL/MinUniversity Hospitals Ahuja Medical Center26.04[facility] CenterPotassium [Moles/volume] in Serum or PlasmaOrdered By: Michele Knight on 55-39-6412Vusrsiifn [Moles/Vol] Potassium [Moles/volume] in Serum or PlasmaLow3.5-5.1FSumma Health Akron Campuserum or plasma anion gap determinationOrdered By: Michele Knight on 35-79-4541Xjkht gap [Moles/Vol]Serum or plasma anion gap determination6.0-15.0 [facility] Hospitalodium [Moles/volume] in Serum or PlasmaOrdered By: Michele Knight on 36-88-5292Iajlcs [Moles/Vol]Sodium [Moles/volume] in Serum or QhjqjiBmp903-862BaefkgdrlUniversity Hospitals Ahuja Medical CenterUrea nitrogen [Mass/volume] in Serum or PlasmaOrdered By: Michele Knight on 18-95-0211Igvv nitrogen [Mass/Vol] Urea nitrogen [Mass/volume] in Serum or PlasmaHigh7-25[facility] Medical CenterBasic Metabolic Panelon 43-35-2296Nrnrp gap [Moles/Vol]11.4 mmol/LNormal 6.0-15.0The [facility] Physician GroupComment on above:Performed By: #### BMP ####[address] [address] USACalcium [Mass/Vol]8.1 mg/dLLow8.6-10.3The [facility] Physician GroupComment on above: Performed By: #### BMP ####[address] [address] USAChloride [Moles/Vol]93 mmol/IMmw12-505Gyu [facility] Physician GroupComment on above:Performed By: #### BMP ####[address] [address] USACO2 [Moles/Vol]29.7 mmol/L Tgqofc94.0-31.0The [facility] Physician GroupComment on above:Performed By: #### BMP ####[address] [address] [place] Creatinine [Mass/Vol]2.39 mg/dLHigh0.70-1.30The [facility] Physician GroupComment on above:Performed By: #### BMP ####[address] [address] USACreatinine Clr Calc Aedswlcu01.73NormMemorial Hospitale [facility] Physician GroupComment on above:Result Comment: PERFORMED BY:[address] [address] [place], [place] [phone] MEDICAL DIRECTORJAJA CATES M.D.Performed By: #### BMP ####[address] [address] USAEstimated GFR26.413 mL/Min NormalThe [facility] Hospital Physician GroupComment on above:Performed By: #### BMP ####[address] [address] USAGlucose [Mass/Vol]80 mg/fOYpdauc20-221Cbv [facility] Physician GroupComment on above: Result Comment: Random Glucose Reference Range is dependent on time and content of last meal. Glucose of more than 200 mg/dL in a nonstressed, ambulatory subject supports the diagnosis of Diabetes Mellitus. ADA recommended reference rangePerformed By: #### BMP ####[address] [address] USAPotassium [Moles/Vol]3.1 mmol/LLow3.5-5.1The [facility] Physician GroupComment on above:Performed By: #### BMP ####[address] [address] USASodium [Moles/Vol]131 mmol/ACsp883-372Chj [facility] Physician GroupComment on above:Performed By: #### BMP ####[address] [address] USAUrea nitrogen [Mass/Vol]41 mg/dLHigh7-25The [facility] Physician GroupComment on above:Performed By: #### BMP ####[address] [address] USABasic Metabolic Panelon 96-68-4502Euwzt gap [Moles/Vol]11.2 mmol/LNormal6.0-15.0The [facility] Physician GroupComment on above:Performed By: #### BMP ####[address] [address] USACalcium [Mass/Vol]8.7 mg/dLNormal8.6-10.3The [facility] Physician GroupComment on above:Performed By: #### BMP ####[address] [address] USAChloride [Moles/Vol] 91 mmol/IHfc64-396Ktm [facility] Physician GroupComment on above:Performed By: #### BMP ####[address] [place] [address] USACO2 [Moles/Vol]30.0 mmol/WMhaixn97.0-31.0The [facility] Physician GroupComment on above:Performed By: #### BMP ####[address] [address] USACreatinine [Mass/Vol]2.27 mg/dLHigh0.70-1.30The [facility] Physician GroupComment on above:Performed By: #### BMP ####[address] [address] USACreatinine Clr Calc Inbqabqd70.95NoCone Health Physician GroupComment on above:Result Comment: PERFORMED BY:[address] [place], [place] [phone] MEDICAL DIRECTORJAJA CATES M.D. Performed By: #### BMP ####[address] [address] USAEstimated GFR28.097 mL/MinNoCone Health Physician [facility] General HospitalComment on above:Performed By: #### BMP ####[address] [address] USAGlucose [Mass/Vol]143 mg/dL Ezwq84-251Hll [facility] Physician GroupComment on above:Result Comment: Random Glucose Reference Range is dependent on time and content of last meal. Glucose of more than 200 mg/dL in a nonstressed, ambulatory subject supports the diagnosis of Diabetes Mellitus. ADA recommended reference rangePerformed By: #### BMP ####[address] [address] USAPotassium [Moles/Vol]3.2 mmol/LLow3.5-5.1The [facility] Physician GroupComment on above:Performed By: #### BMP ####[address] [address] USASodium [Moles/Vol]129 mmol/LZvf642-598Ehw [facility] Physician GroupComment on above:Performed By: #### BMP ####[address] [place] [address] USAUrea nitrogen [Mass/Vol]36 mg/dLHigh7-25The [facility] Physician GroupComment on above:Performed By: #### BMP ####[address] [address] [facility] Basic Metabolic Panelon 20-79-7315Yohmo gap [Moles/Vol]10.1 mmol/LNormal6.0-15.0 The [facility] Physician GroupComment on above:Performed By: #### BMP ####[address] [address] USACalcium [Mass/Vol]8.4 mg/dLLow8.6-10.3The [facility] Physician GroupComment on above: Performed By: #### BMP ####[address] [address] USAChloride [Moles/Vol]96 mmol/CHyr86-182Cng [facility] Physician GroupComment on above:Performed By: #### BMP ####[address] USACO2 [Moles/Vol]29.5 mmol/L Emohhy14.0-31.0The [facility] Physician GroupComment on above:Performed By: #### BMP ####[address] [address] [place] Creatinine [Mass/Vol]2.33 mg/dLHigh0.70-1.30The [facility] Physician GroupComment on above:Performed By: #### BMP ####[address] [address] USACreatinine Clr Calc Nrlniudp37.07NormalThe [facility] Physician GroupComment on above:Result Comment: PERFORMED BY:[address] [address] [place], [place] [phone] MEDICAL DIRECTORJAJA CATES M.D.Performed By: #### BMP ####[address] [address] USAEstimated GFR27.232 mL/Min NormalThe [facility] Hospital Physician GroupComment on above:Performed By: #### BMP ####[address] [address] USAGlucose [Mass/Vol]79 mg/zTIlzblu34-707Cby [facility] Physician GroupComment on above: Result Comment: Random Glucose Reference Range is dependent on time and content of last meal. Glucose of more than 200 mg/dL in a nonstressed, ambulatory subject supports the diagnosis of Diabetes Mellitus. ADA recommended reference rangePerformed By: #### BMP ####[id number] USAPotassium [Moles/Vol]3.6 mmol/LNormal3.5-5.1The [facility] Physician GroupComment on above:Performed By: #### BMP ####[address] USASodium [Moles/Vol]132 mmol/GGzm675-936Mlv [facility] Physician GroupComment on above:Performed By: #### BMP ####[address] [address] USAUrea nitrogen [Mass/Vol]35 mg/dLHigh7-25The [facility] Physician GroupComment on above:Performed By: #### BMP ####[address] [address] USABasic Metabolic Panelon 68-37-5815Gtigz gap [Moles/Vol]11.8 mmol/LNormal6.0-15.0The [facility] Physician GroupComment on above:Performed By: #### BMP ####[address] USACalcium [Mass/Vol]8.3 mg/dLLow8.6-10.3The [facility] Physician GroupComment on above:Performed By: #### BMP ####[address] [address] USAChloride [Moles/Vol]100 mmol/L Gvjicy74-302Dof [facility] Physician GroupComment on above:Performed By: #### BMP ####[address] [address] USACO2 [Moles/Vol]28.4 mmol/YUlibom07.0-31.0The [facility] Physician GroupComment on above:Performed By: #### BMP ####[address] [address] USACreatinine [Mass/Vol]2.69 mg/dLHigh0.70-1.30The [facility] Physician GroupComment on above:Performed By: #### BMP ####[address] USACreatinine Clr Calc Azarcett27.96NormMelbourne Regional Medical Center Physician GroupComment on above:Result Comment: PERFORMED BY:[address] [place], [place] [phone] MEDICAL DIRECTORJAJA CATES M.D. Performed By: #### BMP ####[address] [address] USAEstimated GFR22.919 mL/MinNoCone Health Physician [facility] County General HospitalComment on above:Performed By: #### BMP ####[address] [address] USAGlucose [Mass/Vol]97 mg/dL Lvpvkp01-033Rvk [facility] Physician [facility] HospitalComment on above:Result Comment: Random Glucose Reference Range is dependent on time and content of last meal. Glucose of more than 200 mg/dL in a nonstressed, ambulatory subject supports the diagnosis of Diabetes Mellitus. ADA recommended reference rangePerformed By: #### BMP ####[address] [address] USAPotassium [Moles/Vol]4.2 mmol/LNormal3.5-5.1The [facility]ician Group Comment on above:Performed By: #### BMP ####[address] [address] USASodium [Moles/Vol]136 mmol/BPwuuvo524-795Uvt [facility] Physician [facility] HospitalComment on above:Performed By: #### BMP ####[address] USAUrea nitrogen [Mass/Vol]39 mg/dLHigh7-25The [facility] Physician GroupComment on above: Performed By: #### BMP ####[facility] [place] [address] USAAlanine aminotransferase [Enzymatic activity/volume] in Serum or PlasmaOrdered By: Marcos Martin on 49-44-3342UCW [Catalytic activity/Vol]Alanine aminotransferase [Enzymatic activity/volume] in Serum or Plasma7-52[facility] CenterAlbumin [Mass/volume] in Serum or Plasma by Bromocresol green (BCG) dye binding methoOrdered By: Marcos Martin on 55-96-9526Vtwhsrm BCG dye [Mass/Vol]Albumin [Mass/volume] in Serum or Plasma by Bromocresol green (BCG) dye binding methoLow3.5-5.7FCleveland Clinic FoundationAlkaline phosphatase [Enzymatic activity/volume] in Serum or PlasmaOrdered By: Marcos Martin on 62-86-4838EDC [Catalytic activity/Vol]Alkaline phosphatase [Enzymatic activity/volume] in Serum or TgfhuvHpeh67-447RixletxehUniversity Hospitals Ahuja Medical CenterAppearance of UrineOrdered By: Marcos Martin on 32-15-1108Krdrrjokxq (U)Urine appearanceCleSt. John of God HospitalAspartate aminotransferase [Enzymatic activity/volume] in Serum or PlasmaOrdered By: Marcos Martin on 09-02-1131IQI [Catalytic activity/Vol]Aspartate aminotransferase [Enzymatic activity/volume] in Serum or Ojhvku96-04IdicrphnqUniversity Hospitals Ahuja Medical CenterB-Type Natriuretic Peptideon 21-45-1372Zttfdhpburz peptide B (Bld) [Mass/Vol]254.0 pg/mLHigh5-100The [facility] Physician GroupComment on above: Result Comment: PERFORMED BY:[address] [address] [address] [place], [place] [phone] MEDICAL DIRECTORJAJA WHITE M.D.Performed By: #### CBC, CK, PT, BNP, PTT, HS TROP ####[facility] [place] [address] USABacteria [Presence] in Urine by AutomatedOrdered By: Marcos Martin on 54-47-2979Dfzfrgih Auto Ql (U) Bacteria [Presence] in Urine by AutomatedNone Martin Memorial HospitalBasic Metabolic Panelon 62-64-2793Aiwrm gap [Moles/Vol]8.3 mmol/LNormal 6.0-15.0The [facility] Physician GroupComment on above:Performed By: #### CUBLD, LACTIC, HEPATIC, TSH3, BMP ####[address] [place] [address] USACalcium [Mass/Vol]8.3 mg/dLLow8.6-10.3The [facility] Physician GroupComment on above:Performed By: #### CUBLD, LACTIC, HEPATIC, TSH3, BMP ####[address] [address] [place] Chloride [Moles/Vol]98 mmol/RDpzzoz34-422Jnx [facility] Physician [facility] HospitalComment on above:Performed By: #### CUBLD, LACTIC, HEPATIC, TSH3, BMP ####[place] USACO2 [Moles/Vol]30.2 mmol/LGrjodk08.0-31.0The [facility] Physician GroupComment on above:Performed By: #### CUBLD, LACTIC, HEPATIC, TSH3, BMP ####[address] [address] USACreatinine [Mass/Vol]3.07 mg/dLHigh0.70-1.30 The [facility] Physician GroupComment on above:Performed By: #### CUBLD, LACTIC, HEPATIC, TSH3, BMP ####[address] [address] USACreatinine Clr Calc Qmnwvmap74.97NormMelbourne Regional Medical Center Physician Group Comment on above:Result Comment: PERFORMED BY:[address] [place], [place] [phone] MEDICAL DIRECTORJAJA CATES M.D.Performed By: #### CUBLD, LACTIC, HEPATIC, TSH3, BMP ####[address] [address] USAEstimated GFR19.558 mL/MinNormalThPower County Hospital Physician [facility] HospitalComment on above:Performed By: #### CUBLD, LACTIC, HEPATIC, TSH3, BMP ####[place] [address] USAGlucose [Mass/Vol]125 mg/yEJkbc30-457Akb [facility] Physician GroupComment on above:Result Comment: Random Glucose Reference Range is dependent on time and content of last meal. Glucose of more than 200 mg/dL in a nonstressed, ambulatory subject supports the diagnosis of Diabetes Mellitus. ADA recommended reference rangePerformed By: #### CUBLD, LACTIC, HEPATIC, TSH3, BMP ####[place] [address] USAPotassium [Moles/Vol]4.5 mmol/LNormal3.5-5.1 The [facility] Physician [facility] HospitalComment on above:Performed By: #### CUBLD, LACTIC, HEPATIC, TSH3, BMP ####[place] [address] USASodium [Moles/Vol]132 mmol/ATbj972-630Kxy [facility] Physician [facility] Comment on above:Performed By: #### CUBLD, LACTIC, HEPATIC, TSH3, BMP ####[address] USAUrea nitrogen [Mass/Vol]40 mg/dLHigh7-25The [facility] Physician [facility] HospitalComment on above:Performed By: #### CUBLD, LACTIC, HEPATIC, TSH3, BMP ####[place] [address] USABasophils Auto (Bld) [#/Vol]Ordered By: Marcos Martin on 38-20-7088Qyzxtmzqe (Bld) [#/Vol]Automated basophil count0.0-0.2FCleveland Clinic FoundationBasophils/100 WBC Auto (Bld)Ordered By: Marcos Martin on 48-40-7172Kganarbfi/100 WBC (Bld)Automated basophil %.[facility] Medical CenterBilirubin Test strip Ql (U)Ordered By: Marcos Martin on 50-21-3890Xjasbgwaf Ql (U)Bilirubin.total [Presence] in Urine by Test stripNegativeUniversity Hospitals Ahuja Medical CenterBilirubin.direct [Mass/volume] in Serum or PlasmaOrdered By: Marcos Martin on 03-10-2024 Bilirubin.direct [Mass/Vol]Bilirubin.direct [Mass/volume] in Serum or PlasmaHigh 0.03-0.18FCleveland Clinic FoundationBilirubin.total [Mass/volume] in Serum or PlasmaOrdered By: Marcos Martin on 38-79-9309Wnjznsldq [Mass/Vol] Bilirubin.total [Mass/volume] in Serum or Plasma0.3-1.0[facility] Medical CenterBioFire Detectedon 72-00-4296XdxDkxu DetectedDetectedCritically abnormalNot DetecteThe [facility] Physician GroupComment on above:Result Comment: This is a duplicate RP2.1 COVID (PCR) result to be used for statistical tracking purpose only.PERFORMED BY:[address] [place], [place] [phone] MEDICAL DIRECTORJAJA WHITE M.D.Performed By: #### BIOFIRECOVDET, RESP PANEL UPP. ####[id number] USABlood Cultureon 88-98-3405Hzztqpbz identified Cx Nom (Bld)NO GROWTH 5 DAYS PERFORMED BY: [facility] [id number] PATHOLOGIST UNDERBASTER JAJA CATES M.D.NormalThe [facility] Hospital Physician GroupComment on above: Performed By: #### CUBLD, LACTIC, HEPATIC, TSH3, BMP ####[id number] USACOVID-19 Detected/Not Detected Ordered By: Marcos Martin on 55-64-6119GTLM-CoV-2 (COVID-19) RNA SMITHA+non-probe Ql (Nph)Not detectedAbnormalNot DetectNewark HospitalComment on above:This is a duplicate RP2.1 COVID (PCR) result to be used for statistical tracking purpose only.Calcium [Mass/volume] in Serum or PlasmaOrdered By: Marcos Martin on 93-98-8312Otqhdnr [Mass/Vol]Calcium [Mass/volume] in Serum or PlasmaLow 8.6-10.3FCleveland Clinic FoundationCarbon dioxide, total [Moles/volume] in Serum or PlasmaOrdered By: Marcos Martin on 56-76-6988LD1 [Moles/Vol]Carbon dioxide, total [Moles/volume] in Serum or Gaqwmt76.0-31.0[facility]ja Medical CenterChloride [Moles/volume] in Serum or PlasmaOrdered By: Marcos Martin on 33-59-8880Fsipvelb [Moles/Vol]Chloride [Moles/volume] in Serum or Plasma 98-107[facility] Medical CenterColor Auto (U)Ordered By: Marcos Martin on 79-33-3969Ptrta (U)Color of Urine by AutoYellowUniversity Hospitals Ahuja Medical Center Complete Blood Count Auto Diffon 11-99-4093Seejsgqyx (Bld) [#/Vol]0.1 10*3/uL Normal0.0-0.2The [facility] Physician GroupComment on above:Result Comment: PERFORMED BY:[address] [place], [place] [phone] MEDICAL DIRECTORJAJA CAETS M.D. Performed By: #### CBC, CK, PT, BNP, PTT, HS TROP ####[address] [address] USABasophils/100 WBC (Bld)1.4 %Normal. The [facility] Physician GroupComment on above:Performed By: #### CBC, CK, PT, BNP, PTT, HS TROP ####[address] [address] USAEosinophils (Bld) [#/Vol]0.5 10*3/uLHigh0.0-0.45The [facility] Physician GroupComment on above:Performed By: #### CBC, CK, PT, BNP, PTT, HS TROP ####[address] [address] [place] Eosinophils/100 WBC (Bld)5.9 %Normal.The [facility] Physician GroupComment on above:Performed By: #### CBC, CK, PT, BNP, PTT, HS TROP ####[place] [address] USAErythrocyte distribution width (RBC) [Ratio]15.4 %High12.0-14.8The [facility] Hospital Physician GroupComment on above: Performed By: #### CBC, CK, PT, BNP, PTT, HS TROP ####[place] [address] USAHematocrit (Bld) [Volume fraction] 27.9 %Low38.8-50.0The [facility] Hospital Physician GroupComment on above:Performed By: #### CBC, CK, PT, BNP, PTT, HS TROP ####[place] [address] USAHemoglobin (Bld) [Mass/Vol]9.3 g/dLLow13.0-17.0The [facility] Physician GroupComment on above:Performed By: #### CBC, CK, PT, BNP, PTT, HS TROP ####[place] [address] USALymphocytes (Bld) [#/Vol]1.0 10*3/uLNormal1.00-4.8The [facility] Physician GroupComment on above:Performed By: #### CBC, CK, PT, BNP, PTT, HS TROP ####[place] [address] [place] Lymphocytes/100 WBC (Bld)11.9 %Normal.The [facility] Physician GroupComment on above:Performed By: #### CBC, CK, PT, BNP, PTT, HS TROP ####[place] [address] USAMCH (RBC) [Entitic mass]33.6 xpXpdokx22.5-35.2The [facility] Physician GroupComment on above:Performed By: #### CBC, CK, PT, BNP, PTT, HS TROP ####[address] [place] [address] USAMCV (RBC) [Entitic vol]100.5 kJLtukbu24.5-101The [facility] Physician GroupComment on above:Performed By: #### CBC, CK, PT, BNP, PTT, HS TROP ####[place] [id number] USAMean Corpuscular HGB Conc33.5 g/fIVtmwaf50.5-35.6The [facility] Physician GroupComment on above:Performed By: #### CBC, CK, PT, BNP, PTT, HS TROP ####[place] [address] [place] Monocytes (Bld) [#/Vol]0.8 10*3/uLNormal0.0-0.8The [facility]ician Group Comment on above:Performed By: #### CBC, CK, PT, BNP, PTT, HS TROP ####[place] [id number] USAMonocytes/100 WBC (Bld)22.24 %High0.00-20.00The [facility] Physician GroupComment on above:Result Comment: For adults in ED, MDW > 20.0 may be associated with a higher risk of sepsis during the first 12 hrs of hospital admissionPerformed By: #### CBC, CK, PT, BNP, PTT, HS TROP ####[place] [id number] USAMonocytes/100 WBC (Bld)9.2 %Normal.The [facility] Physician GroupComment on above:Performed By: #### CBC, CK, PT, BNP, PTT, HS TROP ####[place] [address] [place] Neutrophils (Bld) [#/Vol]6.1 10*3/uLNormal1.8-7.7The [facility]ician Group Comment on above:Performed By: #### CBC, CK, PT, BNP, PTT, HS TROP ####[place] [address] USANeutrophils/100 WBC (Bld)71.6 %Normal.The [facility] Physician GroupComment on above:Performed By: #### CBC, CK, PT, BNP, PTT, HS TROP ####[place] [address] USANRBC%0.0 /100{WBC}Normal0-0.5The [facility] Physician GroupComment on above:Performed By: #### CBC, CK, PT, BNP, PTT, HS TROP ####[address] Platelet mean volume (Bld) [Entitic vol]7.6 fLNormal6.6-10.1The [facility] Physician GroupComment on above:Performed By: #### CBC, CK, PT, BNP, PTT, HS TROP ####[address] Platelets (Bld) [#/Vol]247 10*3/sVAngfbo603-453Ngk [facility] Physician Group Comment on above:Performed By: #### CBC, CK, PT, BNP, PTT, HS TROP ####[place] [address] USARBC (Bld) [#/Vol] 2.78 10*6/uLLow3.90-5.60The [facility] Physician GroupComment on above:Performed By: #### CBC, CK, PT, BNP, PTT, HS TROP ####[place] [address] USAWBC (Bld) [#/Vol]8.5 10*3/uLNormal4.1-10.5The [facility] Physician GroupComment on above:Performed By: #### CBC, CK, PT, BNP, PTT, HS TROP ####[address]Creatine Kinaseon 04-52-1273YS [Catalytic activity/Vol]22 U/VTfe09-756 The [facility] Physician GroupComment on above:Performed By: #### CBC, CK, PT, BNP, PTT, HS TROP ####[address] [place] [address] USACreatine kinase [Enzymatic activity/volume] in Serum or Plasma Ordered By: Marcos Martin on 91-67-6239XF [Catalytic activity/Vol]Creatine kinase [Enzymatic activity/volume] in Serum or AhocxmJkt13-356DqcrctjhjUniversity Hospitals Ahuja Medical CenterCreatinine [Mass/volume] in Serum or PlasmaOrdered By: Marcos Martin on 81-15-4011Himuoeeqxc [Mass/Vol]Creatinine [Mass/volume] in Serum or Plasma High0.70-1.30[facility]huja Medical CenterDipstick and Microscopicon 01-80-3022Xmggiqrqwx (U)ClearNormalClearThe [facility] Hospital Physician GroupComment on above:Order Comment: Name Collection Type:: Chou CatheterPerformed By: #### ADDONUAPLUS ####[address] [address] USABacteria,UrineNone SeenNormalNone SeenThe [facility] Physician Group Comment on above:Order Comment: Name Collection Type:: Chou CatheterPerformed By: #### ADDONUAPLUS ####[address] [address] USABilirubin,UrineNegativeNormalNegativeHca Florida [facility] Hospital Physician GroupComment on above:Order Comment: Name Collection Type:: Chou CatheterPerformed By: #### ADDONUAPLUS ####[address] [address] USAColor (U)Light-YellowNormalYellowHca Florida [facility] Hospital Physician GroupComment on above:Order Comment: Name Collection Type:: Chou CatheterPerformed By: #### ADDONUAPLUS ####[address] [address] USAGlucose Ql (U)NormalNormalNormalThe [facility] Hospital Physician GroupComment on above:Order Comment: Name Collection Type:: Chou CatheterPerformed By: #### ADDONUAPLUS ####[address] [address] USAHyaline Casts,UrineInnumerableHigh0-8The [facility] Hospital Physician GroupComment on above:Order Comment: Name Collection Type:: Chou CatheterPerformed By: #### ADDONUAPLUS ####[address] [address] USAKetones Ql (U)NegativeNormalNegative The [facility] Physician GroupComment on above:Order Comment: Name Collection Type:: Chou CatheterPerformed By: #### ADDONUAPLUS ####[address] [address] USALeukocyte esterase Test strip Ql (U)NegativeNormalNegativeThe [facility] Hospital Physician GroupComment on above:Order Comment: Name Collection Type:: Chou CatheterPerformed By: #### ADDONUAPLUS ####[address] [address] [place] Mucus,UrineRareNormalThe [facility] Physician GroupComment on above:Order Comment: Name Collection Type:: Chou CatheterResult Comment: PERFORMED BY:[place] [address] [address] [place] [id number] 17PATHOLOGIST MEDICAL DIRECTORJAJA CATES M.D.Performed By: #### ADDONUAPLUS ####[address] [address] USANitrite,UrineNegativeNormalNegativeThe [facility] Physician GroupComment on above:Order Comment: Name Collection Type:: Chou CatheterPerformed By: #### ADDONUAPLUS ####[address] [address] USAOccult Blood,UrineTraceHighNegativeHca [facility] Physician GroupComment on above:Order Comment: Name Collection Type:: Chou CatheterResult Comment: PERFORMED BY:[place] [address] [address] [place] [phone] MEDICAL DIRECTORJAJA CATES M.D. Performed By: #### ADDONUAPLUS ####[address] [address] USApH (U)5.0 [pH]Normal5.0-9.0The [facility] Physician GroupComment on above:Order Comment: Name Collection Type:: Chou Catheter Performed By: #### ADDONUAPLUS ####[address] [address] USAProtein,UrineNegativeNormalNegativeHca [facility] Physician GroupComment on above:Order Comment: Name Collection Type:: Chou CatheterPerformed By: #### ADDONUAPLUS ####[address] [address] USARBC,Urine5 [HPF]High0-4The [facility] Physician GroupComment on above:Order Comment: Name Collection Type:: Chou Catheter Performed By: #### ADDONUAPLUS ####[address] [address] USASpecificy [place],Urine1.048Miadzh8.001-1.030The [facility] Physician GroupComment on above:Order Comment: Name Collection Type:: Chou CatheterPerformed By: #### ADDONUAPLUS ####[address] [address] USASquamous Epithelial Cell,Urine1 [HPF] Normal0-2The [facility] Physician GroupComment on above:Order Comment: Name Collection Type:: Chou CatheterPerformed By: #### ADDONUAPLUS ####[address] [address] USAUrobilinogen,Urine NormalNormalNormMemorial Hospitale [facility] Physician GroupComment on above:Order Comment: Name Collection Type:: Chou CatheterPerformed By: #### ADDONUAPLUS ####[address] [address] [place] WBC,Urine5 [HPF]High0-4The [facility] Physician GroupComment on above:Order Comment: Name Collection Type:: Chou CatheterPerformed By: #### ADDONUAPLUS ####[address] [address] USAECG 12 lead ECGon 19-01-2185HAN 12 lead ECGNormMemorial Hospitale [facility]ician Group Eosinophils Auto (Bld) [#/Vol]Ordered By: Marcos Martin on 54-03-0199Mdmtqqpucbl (Bld) [#/Vol]Automated eosinophil countHigh0.0-0.45[facility] CenterEosinophils/100 WBC Auto (Bld)Ordered By: Marcos Martin on 03-10-2024 Eosinophils/100 WBC (Bld)Automated eosinophil %.[facility] Medical CenterEpithelial cells.squamous [#/area] in Urine sediment by Automated count Ordered By: Marcos Martin on 13-85-1107Ypmpolznuw cells.squamous Auto (Urine sed) [#/Area]Epithelial cells.squamous [#/area] in Urine sediment by Automated count 0-2FCleveland Clinic FoundationErythrocyte distribution width Auto (RBC) [Ratio]Ordered By: Marcos Martin on 99-36-3642Zozeoxsieml distribution width (RBC) [Ratio]Erythrocyte distribution width [Ratio] by Automated gkiozMyvr82.0-14.8 [facility] CenterErythrocytes [#/area] in Urine sediment by Automated countOrdered By: Marcos Martin on 09-82-1940SNK Auto (Urine sed) [#/Area]Erythrocytes [#/area] in Urine sediment by Automated countHigh0-4 [facility] CenterGlobulin Calc (S) [Mass/Vol]Ordered By: Marcos Martin on 38-18-6104Bnydqbwe (S) [Mass/Vol]Serum globulin measurement by calculation (mass/volume)[facility] CenterGlucose [Mass/volume] in Serum or PlasmaOrdered By: Marcos Martin on 66-92-6606Daqoknw [Mass/Vol]Glucose [Mass/volume] in Serum or MsuwxlOdnp08-977IkhgtubbqUniversity Hospitals Ahuja Medical Center Comment on above:ADA recommended reference rangeRandom Glucose Reference Range is dependent on time and content of last meal. Glucose of more than 200 mg/dL in a nonstressed, ambulatory subject supports the diagnosisof Diabetes Mellitus. Glucose [Mass/volume] in Urine by Test stripOrdered By: Marcos Martin on 48-55-8584Rxhvaqd Test strip (U) [Mass/Vol]Glucose [Mass/volume] in Urine by Test stripNormalUniversity Hospitals Ahuja Medical CenterHematocrit Auto (Bld) [Volume fraction]Ordered By: Marcos Martin on 16-26-8513Uwljhfwuhb (Bld) [Volume fraction] Hematocrit [Volume Fraction] of Blood by Automated naeilGlg40.8-50.0[facility] Medical CenterHemoglobin Test strip Ql (U)Ordered By: Marcos Martin on 27-78-0085Sfddxyaxym Ql (U)Hemoglobin [Presence] in Urine by Test stripHigh NegativeUniversity Hospitals Ahuja Medical CenterHemoglobin [Mass/volume] in Blood Ordered By: Marcos Martin on 48-54-4467Hunbhxvbuq (Bld) [Mass/Vol]Hemoglobin [Mass/volume] in SitlkLed98.0-17.0[facility] Medical CenterHepatic Panel on 69-86-9869Hxixdcd [Mass/Vol]2.7 g/dLLow3.5-5.7The [facility] Comment on above:Performed By: #### CUBLD, LACTIC, HEPATIC, TSH3, BMP ####[place] [address] [place] [id number] [place] Albumin/Globulin [Mass ratio]0.9 {ratio}NormalThe [facility] Comment on above:Performed By: #### CUBLD, LACTIC, HEPATIC, TSH3, BMP ####[place] [address] [place] [address] USAALP [Catalytic activity/Vol]111 U/GPdyj75-625Wzx [facility] Physician GroupComment on above:Performed By: #### CUBLD, LACTIC, HEPATIC, TSH3, BMP ####[address] [address] USAALT [Catalytic activity/Vol]10 U/LNormal7-52The [facility] Physician GroupComment on above: Performed By: #### CUBLD, LACTIC, HEPATIC, TSH3, BMP ####[address] [address] USAAST [Catalytic activity/Vol]18 U/MFwvxli37-70Ihl [facility] Physician GroupComment on above:Performed By: #### CUBLD, LACTIC, HEPATIC, TSH3, BMP ####[address] [address] USABilirubin [Mass/Vol]0.6 mg/dLNormal0.3-1.0The [facility] Physician GroupComment on above:Performed By: #### CUBLD, LACTIC, HEPATIC, TSH3, BMP ####[place] [address] USABilirubin,Indirect0.4 mg/dLNoCone Health Physician [facility] Comment on above:Performed By: #### CUBLD, LACTIC, HEPATIC, TSH3, BMP ####[address] Bilirubin.indirect [Mass/Vol]0.20 mg/dLHigh0.03-0.18The [facility] Physician GroupComment on above:Performed By: #### CUBLD, LACTIC, HEPATIC, TSH3, BMP ####[address] Globulin (S) [Mass/Vol]3.0 g/dLNoCone Health Physician [facility] HospitalComment on above:Performed By: #### CUBLD, LACTIC, HEPATIC, TSH3, BMP ####[place] [address] USAProtein [Mass/Vol]5.7 g/dLLow6.4-8.9The [facility] Physician GroupComment on above:Performed By: #### CUBLD, LACTIC, HEPATIC, TSH3, BMP ####[place] [address] USAHyaline casts [#/area] in Urine sediment by Automated countOrdered By: Marcos Martin on 50-04-7315Ngcwiws casts Auto (Urine sed) [#/Area]Hyaline casts [#/area] in Urine sediment by Automated countHigh0-8 [facility] CenterINR in Platelet poor plasma by Coagulation assayOrdered By: Marcos Martin on 82-93-3926SGC Coag (PPP) [Relative time]INR in Platelet poor plasma by Coagulation assayUniversity Hospitals Ahuja Medical Center Comment on above:INR Therapeutic Range A) Pre- [...] Ql (U)Ketones [Presence] in Urine by Test stripNegativeUniversity Hospitals Ahuja Medical CenterLaboratory - Microbiology and Antimicrobial susceptibilityOrdered By: Marcos Martin on 65-42-3662Zwbilxpe identified Cx Nom (Bld)NO GROWTH 5 DAYSUniversity Hospitals Ahuja Medical CenterBacteria identified Cx Nom (Bld)NO GROWTH 5 DAYSUniversity Hospitals Ahuja Medical CenterLactate [Moles/volume] in Serum or PlasmaOrdered By: Marcos Martin on 03-66-9433Wfjyfqs [Moles/Vol]Lactate [Moles/volume] in Serum or Plasma0.5-2.2FCleveland Clinic FoundationLactic Acidon 39-08-4723Wwqrmig [Moles/Vol]1.2 mmol/LNormal0.5-2.2The [facility] Physician GroupComment on above:Result Comment: PERFORMED BY:[facility] [place] [address] [place], [place] [phone] MEDICAL DIRECTORJAJA CATES M.D.Performed By: #### CUBLD, LACTIC, HEPATIC, TSH3, BMP ####[facility] [place] [address] USALeukocyte esterase [Presence] in Urine by Test stripOrdered By: Marcos Martin on 23-20-8598Ludkgbieh esterase Test strip Ql (U)Leukocyte esterase [Presence] in Urine by Test stripNegativeUniversity Hospitals Ahuja Medical CenterLeukocytes [#/area] in Urine sediment by Automated countOrdered By: Marcos Martin on 06-92-0053FBD Auto (Urine sed) [#/Area]Leukocytes [#/area] in Urine sediment by Automated countHigh0-4FCleveland Clinic FoundationLeukocytes [#/volume] corrected for nucleated erythrocytes in Blood by Automated counOrdered By: Marcos Martin on 46-24-9709LZP corrected for nucl RBC Auto (Bld) [#/Vol]Leukocytes [#/volume] corrected for nucleated erythrocytes in Blood by Automated coun 4.1-10.5FCleveland Clinic FoundationLymphocytes Auto (Bld) [#/Vol]Ordered By: Marcos Martin on 69-91-8465Ofndknwvgwr (Bld) [#/Vol]Lymphocytes [#/volume] in Blood by Automated count1.00-4.8[facility] Medical CenterLymphocytes/100 WBC Auto (Bld)Ordered By: Marcos Martin on 25-31-7856Tsjqcaggzcq/100 WBC (Bld) Lymphocytes/100 leukocytes in Blood by Automated count.[facility] Medical CenterMCH Auto (RBC) [Entitic mass]Ordered By: Marcos Martin on 03-10-2024 MCH (RBC) [Entitic mass]MCH [Entitic mass] by Automated count27.5-35.2FCleveland Clinic FoundationMCHC Auto (RBC) [Mass/Vol]Ordered By: Marcos Martin on 59-92-1981TERM (RBC) [Mass/Vol]MCHC [Mass/volume] by Automated count32.5-35.6 [facility] Medical CenterMCV Auto (RBC) [Entitic vol]Ordered By: Marcos Martin on 40-27-1560RVU (RBC) [Entitic vol]MCV [Entitic volume] by Automated count83.5-101[facility] Medical CenterMonocyte distribution width [Entitic volume] in Blood by AutomatedOrdered By: Marcos Martin on 03-10-2024 Monocyte distribution width Auto (Bld) [Entitic vol]Monocyte distribution width [Entitic volume] in Blood by AutomatedHigh0.00-20.00[facility] Medical CenterComment on above:For adults in ED, MDW > 20.0 may be associated with a higher risk of sepsis during the first 12 hrs of hospital admissionMonocytes Auto (Bld) [#/Vol]Ordered By: Marcos Martin on 37-05-9818Dgmunmqdn (Bld) [#/Vol] Automated blood monocyte count0.0-0.8[facility] Monocytes/100 WBC Auto (Bld)Ordered By: Marcos Martin on 28-88-5806Hjzvmpjvo/100 WBC (Bld)Automated monocyte %.[facility] Medical CenterMucus [Presence] in Urine by AutomatedOrdered By: Marcos Martin on 00-97-3544Gyssh Auto Ql (U)Mucus [Presence] in Urine by AutomatedUniversity Hospitals Ahuja Medical CenterNatriuretic peptide B [Mass/Vol]Ordered By: Marcos Martin on 65-03-7693Jwywfdxqocc peptide B (Bld) [Mass/Vol]BNP ser/plasHigh5-100[facility] Neutrophils Auto (Bld) [#/Vol]Ordered By: Marcos Martin on 94-69-0401Dvlyzrudgrb (Bld) [#/Vol]Neutrophils [#/volume] in Blood by Automated count1.8-7.7FCleveland Clinic FoundationNeutrophils/100 WBC Auto (Bld)Ordered By: Marcos Martin on 62-02-3480Uilxagdajxv/100 WBC (Bld)Automated neutrophil %.[facility] Medical CenterNitrite Test strip Ql (U)Ordered By: Marcos Martin on 03-10-2024 Nitrite Ql (U)Nitrite [Presence] in Urine by Test stripNegativeUniversity Hospitals Ahuja Medical CenterNo Panel InformationOrdered By: Marcos Martin on 03-10-2024 Estimated GFR (CKD-EPI)19.558 mL/MinUniversity Hospitals Ahuja Medical CenterPharmacy Creatinine Clearance (Chem19.97[facility] CenterNO GROWTH 5 DAYS [facility] Medical CenterNucleated erythrocytes [Presence] in Blood by Automated countOrdered By: Marcos Martin on 44-87-0110Yjkcdoskn RBC Auto Ql (Bld) Nucleated erythrocytes [Presence] in Blood by Automated count0-0.5FCleveland Clinic FoundationPartial Thromboplastin Timeon 92-05-6039yBUA Coag (Bld) [Time]38.8 sHigh25.1-36.5The [facility] Physician GroupComment on above:Result Comment: A hematocrit value greater than 55% may lead to inaccurate results in coagulation testing. Patients having hematocrit values >55% require a special collection tube for coagulation studies. Please contact the laboratory at [phone] for redraw instructions.PERFORMED BY:[place] [address] [address] [place], [place] [phone] MEDICAL DIRECTORJAJA CATES M.D.Performed By: #### CBC, CK, PT, BNP, PTT, HS TROP ####[facility] Platelet mean volume Auto (Bld) [Entitic vol]Ordered By: Marcos Martin on 06-13-1507Pkrwmpmr mean volume (Bld) [Entitic vol]Platelet mean volume [Entitic volume] in Blood by Automated count6.6-10.1FCleveland Clinic Foundation Platelets Auto (Bld) [#/Vol]Ordered By: Marcos Martin on 77-02-5434Skwatacwv (Bld) [#/Vol]Platelets [#/volume] in Blood by Automated -922HondsqcaxUniversity Hospitals Ahuja Medical CenterPotassium [Moles/volume] in Serum or PlasmaOrdered By: Marcos Martin on 80-68-2122Zbeehzgdd [Moles/Vol]Potassium [Moles/volume] in Serum or Plasma3.5-5.1FCleveland Clinic FoundationProtein Test strip (U) [Mass/Vol]Ordered By: Marcos Martin on 81-45-5834Ctauiqi (U) [Mass/Vol]Protein [Mass/volume] in Urine by Test stripNegativeUniversity Hospitals Ahuja Medical Center Protein [Mass/volume] in Serum or PlasmaOrdered By: Marcos Martin on 03-10-2024 Protein [Mass/Vol]Protein [Mass/volume] in Serum or PlasmaLow6.4-8.9[facility] Medical CenterProthrombin Time INRon 77-08-8688PKL Coag (PPP) [Relative time]2.7 {INR}NormalThe [facility] Hospital Physician GroupComment on above:Result Comment: INR [...] CBC, CK, PT, BNP, PTT, HS TROP ####[facility] [place] [address] USAPT Coag (PPP) [Time] 30.4 sHigh9.0-12.9[facility] Physician GroupComment on above:Result Comment: A hematocrit value greater than 55% may lead to inaccurate results in coagulation testing. Patients having hematocrit values >55% require a special collection tube for coagulation studies. Please contact the laboratory at [phone] for redraw instructions.Performed By: #### CBC, CK, PT, BNP, PTT, HS TROP ####[facility] [address] [place] [address] USAProthrombin time (PT)Ordered By: Marcos Martin on 06-84-6783BS Coag (PPP) [Time]Prothrombin time (PT)High9.0-12.9[facility] Medical CenterComment on above:A hematocrit value greater than 55% may lead to inaccurate results in coagulation testing. Patientshaving hematocrit values >55% require a special collection tube for coagulation studies. Please contact the laboratory at [phone] for redraw instructions.RBC Auto (Bld) [#/Vol]Ordered By: Marcos Martin on 34-04-5327ONS (Bld) [#/Vol]Erythrocytes [#/volume] in Blood by Automated countLow3.90-5.60[facility] Medical CenterRespiratory (Upper) Panel, PCRon 31-90-5443Obqcqpjkngx (Upper) Panel, PCRNormMelbourne Regional Medical Center Physician GroupComment on above:Performed By: #### BIOFIRECOVDET, RESP PANEL UPP. ####[facility] [address] [place] [address] [facility] Respiratory pathogens DNA and RNA panel - Nasopharynx by SMITHA with non-probe detectionOrdered By: Marcos Martin on 29-44-0461Rjzncujrykq pathogens DNA and RNA panel SMITHA+non-probe (Nph)Respiratory pathogens DNA and RNA panel - Nasopharynx by SMITHA with non-probe detectionMartins Ferry Hospitalerum or plasma albumin/globulin mass ratioOrdered By: Marcos Martin on 47-40-2573Mabwbux/Globulin [Mass ratio]Serum or plasma albumin/globulin mass ratioMartins Ferry Hospitalerum or plasma anion gap determinationOrdered By: Marcos Martin on 38-59-0673Muozf gap [Moles/Vol]Serum or plasma anion gap determination6.0-15.0 Martins Ferry Hospitalerum or plasma non-glucuronidated bilirubin measurement (mass/volume)Ordered By: Marcos Martin on 91-98-5495Bdpjnhvyr.indirect [Mass/Vol]Serum or plasma non-glucuronidated bilirubin measurement (mass/volume)Martins Ferry Hospitalodium [Moles/volume] in Serum or PlasmaOrdered By: Marcos Martin on 62-34-1936Jnbckm [Moles/Vol]Sodium [Moles/volume] in Serum or MobooaCay721-304JjfybhnbfUniversity Hospitals Ahuja Medical Center Specific gravity Test strip (U) [Rel density]Ordered By: Marcos Martin on 18-04-3591Qovvuiyr gravity (U) [Rel density]Specific gravity of Urine by Test strip1.001-1.030[facility] Medical CenterThyroid Stimulating Hormoneon 79-36-6050YJA Qn11.48 m[IU]/LHigh0.45-5.33The [facility] Physician GroupComment on above:Result Comment: PERFORMED BY:[place] [address] [address] [place], [place] [phone] MEDICAL DIRECTORJAJA CATES M.D.Performed By: #### CUBLD, LACTIC, HEPATIC, TSH3, BMP ####[address] [address] [facility] Thyrotropin [Units/volume] in Serum or PlasmaOrdered By: Mitchell Reyes on 79-96-7845CSQ QnThyrotropin [Units/volume] in Serum or PlasmaHigh0.45-5.33 [facility] Medical CenterTroponin I High Sensitivityon 03-10-2024 Troponin I High Lqaxxjkuqbp44.1 pg/mLNormal0.0-20.0[facility] Comment on above:Result Comment: PERFORMED BY:[address] [place], [place] [phone] MEDICAL DIRECTORJAJA CATES M.D.Performed By: #### CBC, CK, PT, BNP, PTT, HS TROP ####[facility] [address] [place] [address] [facility] Troponin I.cardiac [Mass/volume] in Serum or Plasma by Detection limit <= 0.01 ng/Ordered By: Marcos Martin on 02-77-6143Cpvdiauo I.cardiac DL <= 0.01 ng/mL [Mass/Vol]Troponin I.cardiac [Mass/volume] in Serum or Plasma by Detection limit <= 0.01 ng/0.0-20.0[facility] Medical CenterUrea nitrogen [Mass/volume] in Serum or PlasmaOrdered By: Marcos Martin on 16-65-4373Tlpf nitrogen [Mass/Vol] Urea nitrogen [Mass/volume] in Serum or PlasmaUnited Hospital Center7-25[facility] Medical CenterUrine Cultureon 05-06-3997Dazvgklc identified Cx Nom (U)No Growth 2 Days PERFORMED BY: [place] [address] PATHOLOGIST UNDERBASTER JAJA CATES M.D.NormalThe [facility]S Hospital Physician GroupComment on above: Performed By: #### CUU ####[facility] [address] [place] [address] USAUrine cultureOrdered By: Mitchell Reyes on 33-25-2275Rlwwiqbq identified Cx Nom (U)Urine cultureUniversity Hospitals Ahuja Medical CenterBacteria identified Cx Nom (U)Urine cultureUniversity Hospitals Ahuja Medical CenterUrobilinogen Test strip (U) [Mass/Vol]Ordered By: Marcos Martin on 67-70-9832Blyyoibphuqo (U) [Mass/Vol]Urobilinogen [Mass/volume] in Urine by Test stripNormalUniversity Hospitals Ahuja Medical CenterWBC Auto (Bld) [#/Vol]Ordered By: Marcos Martin on 80-81-4770ABJ (Bld) [#/Vol]Leukocytes [#/volume] in Blood by Automated count4.1-10.5FCleveland Clinic FoundationX-ray reportOrdered By: Shaquille Mahoney on 64-71-9046Lfzpm reportWVUMEDICINE HARRISON [facility] [address] [place] [address] [place] [address] XRay Report Signed Patient: Tavo Wallis Jr MR# : [id number] : 1940 Acct:[id number] Age/Sex: 83 / M ADM Date: 5 Loc: ER Room: Type: [facility] ER Attending Dr: Copies to: Marcos Martin [...] Shaquille Mahoney M.D.03/10/2024 10:26 AM Dictation Location: [place] [address] Transcribed By: NOLVIA 03/10/24 1026 Dictated By: Shaquille Mahoney II, MD 03/10/24 1025 Signed By: 03/10/24 [facility]6 [facility] Work Phone: XR chest 1V portableon 10-00-0910DO chest 1V portable NormalThe [facility]'S Hospital Physician GroupaPTT in Platelet poor plasma by Coagulation assayOrdered By: Marcos Martin on 22-83-2770nNDF Coag (PPP) [Time]Activated partial thromboplastin time (aPTT) in platelet poor plasma by coagulation [facility] 25.1-36.5FCleveland Clinic FoundationComment on above:A hematocrit value greater than 55% may lead to inaccurate results in coagulation testing. Patients having hematocrit values >55% require a special collection tube for coagulation studies. Please contact the laboratory at [phone] for redraw instructions. pH Test strip (U)Ordered By: Marcos Martin on 86-18-9778eZ (U)pH of Urine by Test strip5.0-9.0[facility] Medical CenterAlanine aminotransferase [Enzymatic activity/volume] in Serum or PlasmaOrdered By: Sandip Bunting on 20-69-9342BXX [Catalytic activity/Vol]Alanine aminotransferase [Enzymatic activity/volume] in Serum or Plasma7-52[facility] Medical CenterAlbumin [Mass/volume] in Serum or Plasma by Bromocresol green (BCG) dye binding methoOrdered By: Sandip Bunting on 03-64-6046Jcqvxhf BCG dye [Mass/Vol]Albumin [Mass/volume] in Serum or Plasma by Bromocresol green (BCG) dye binding methoLow3.5-5.7FCleveland Clinic FoundationAlkaline phosphatase [Enzymatic activity/volume] in Serum or PlasmaOrdered By: Sandip Bunting on 60-83-9995KKD [Catalytic activity/Vol] Alkaline phosphatase [Enzymatic activity/volume] in Serum or JdxhymUwrg84-841 [facility] Medical CenterAspartate aminotransferase [Enzymatic activity/volume] in Serum or PlasmaOrdered By: Sandip Bunting on 59-06-3822WZV [Catalytic activity/Vol]Aspartate aminotransferase [Enzymatic activity/volume] in Serum or Injkpb27-31JkzeugpeqUniversity Hospitals Ahuja Medical CenterBasophils Auto (Bld) [#/Vol]Ordered By: Sandip Bunting on 56-51-9749Pbqwxmiwe (Bld) [#/Vol]Automated basophil count0.0-0.2FCleveland Clinic FoundationBasophils/100 WBC Auto (Bld)Ordered By: Sandip Bunting on 55-54-1096Cxvnkcrsy/100 WBC (Bld)Automated basophil %.[facility] Medical CenterBilirubin.total [Mass/volume] in Serum or PlasmaOrdered By: Sandip Bunting on 78-18-5010Dagjbfvpp [Mass/Vol] Bilirubin.total [Mass/volume] in Serum or Plasma0.3-1.0[facility] Medical CenterCalcium [Mass/volume] in Serum or PlasmaOrdered By: Sandip Bunting on 18-04-2741Pvuzwgi [Mass/Vol]Calcium [Mass/volume] in Serum or PlasmaLow 8.6-10.3FCleveland Clinic FoundationCarbon dioxide, total [Moles/volume] in Serum or PlasmaOrdered By: Sandip Bunting on 56-63-6767PZ7 [Moles/Vol]Carbon dioxide, total [Moles/volume] in Serum or Myevbd28.0-31.0[facility]huja Medical CenterChloride [Moles/volume] in Serum or PlasmaOrdered By: Sandip Bunting on 15-05-7937Iunyifxi [Moles/Vol]Chloride [Moles/volume] in Serum or Ksxttt75-661RwcoziynlUniversity Hospitals Ahuja Medical CenterComplete Blood Count Auto Diffon 52-21-4758Kwwoioymb (Bld) [#/Vol]0.0 10*3/uLNormal0.0-0.2The [facility] Physician GroupComment on above:Result Comment: PERFORMED BY:[address] [place], [place] [phone] MEDICAL DIRECTORJAJA CATES M.D.Performed By: #### CMP, CBC ####[address] [address] USABasophils/100 WBC (Bld)0.5 %Normal.The [facility] Physician GroupComment on above:Performed By: #### CMP, CBC ####[address] [address] USAEosinophils (Bld) [#/Vol]0.4 10*3/uLNormal0.0-0.45The [facility] Hospital Physician GroupComment on above:Performed By: #### CMP, CBC ####[address] [address] USAEosinophils/100 WBC (Bld)4.6 %Normal.The [facility] Physician GroupComment on above:Performed By: #### CMP, CBC ####[address] [address] USAErythrocyte distribution width (RBC) [Ratio]15.4 %High12.0-14.8The [facility] Hospital Physician GroupComment on above:Performed By: #### CMP, CBC ####[place] [phone] [facility] Hematocrit (Bld) [Volume fraction]28.8 %Low38.8-50.0The [facility] Hospital Physician GroupComment on above:Performed By: #### CMP, CBC ####[place] [address] USAHemoglobin (Bld) [Mass/Vol]9.7 g/dLLow 13.0-17.0The [facility] Hospital Physician GroupComment on above:Performed By: #### CMP, CBC ####[place] [address] [place] Lymphocytes (Bld) [#/Vol]0.5 10*3/uLLow1.00-4.8The [facility] Comment on above:Performed By: #### CMP, CBC ####[place] [address] USALymphocytes/100 WBC (Bld)6.1 %Normal. The [facility] Hospital Physician GroupComment on above:Performed By: #### CMP, CBC ####[place] [address] USAMCH (RBC) [Entitic mass]34.4 nuYcqyet48.5-35.2The [facility] Hospital Physician GroupComment on above:Performed By: #### CMP, CBC ####[place] [address] USAMCV (RBC) [Entitic vol]102.5 mHTscv82.5-101The [facility] Hospital Physician GroupComment on above:Performed By: #### CMP, CBC ####[place] [address] USAMean Corpuscular HGB Conc33.6 g/qJOewqtf21.5-35.6The [facility] Hospital Physician GroupComment on above:Performed By: #### CMP, CBC ####[place] [address] USAMonocytes (Bld) [#/Vol]0.6 10*3/uLNormal 0.0-0.8The [facility] Hospital Physician GroupComment on above:Performed By: #### CMP, CBC ####[address] [address] [place] Monocytes/100 WBC (Bld)7.3 %Normal.The [facility] Physician GroupComment on above:Performed By: #### CMP, CBC ####[address] [address] USANeutrophils (Bld) [#/Vol]6.2 10*3/uLNormal1.8-7.7The [facility] Hospital Physician GroupComment on above:Performed By: #### CMP, CBC ####[address] [address] [place] Neutrophils/100 WBC (Bld)81.5 %Normal.The [facility] Hospital Physician GroupComment on above:Performed By: #### CMP, CBC ####[place] [phone] USANRBC%0.1 /100{WBC}Normal0-0.5The [facility] Hospital Physician GroupComment on above:Performed By: #### CMP, CBC ####[address] [address] USAPlatelet mean volume (Bld) [Entitic vol]8.2 fLNormal6.6-10.1The [facility] Hospital Physician GroupComment on above: Performed By: #### CMP, CBC ####[address] [address] USAPlatelets (Bld) [#/Vol]265 10*3/yYPdcdwb551-594Kvl [facility] Physician GroupComment on above:Performed By: #### CMP, CBC ####[address] [address] USARBC (Bld) [#/Vol]2.81 10*6/uLLow3.90-5.60The [facility] Hospital Physician GroupComment on above:Performed By: #### CMP, CBC ####[address] [address] USAWBC (Bld) [#/Vol]7.6 10*3/uLNormal4.1-10.5The [facility] Hospital Physician GroupComment on above:Performed By: #### CMP, CBC ####[address] [address] [facility] Comprehensive Metabolic Panelon 00-91-8597Muqojck [Mass/Vol]2.8 g/dLLow3.5-5.7 The [facility] Hospital Physician GroupComment on above:Performed By: #### CMP, CBC ####[place] [phone] [facility] Albumin/Globulin [Mass ratio]1.2 {ratio}NormalThe [facility] Comment on above:Performed By: #### CMP, CBC ####[place] [phone] USAALP [Catalytic activity/Vol]106 U/L Gocf99-659Iuk [facility] Physician GroupComment on above:Result Comment: PERFORMED BY:[address] [place], [place] [phone] MEDICAL DIRECTORJAJA CATES M.D. Performed By: #### CMP, CBC ####[address] [address] USAALT [Catalytic activity/Vol]13 U/LNormal7-52The [facility] Hospital Physician GroupComment on above:Performed By: #### CMP, CBC ####[address] [address] USAAnion gap [Moles/Vol]9.7 mmol/LNormal6.0-15.0The [facility] Hospital Physician GroupComment on above:Performed By: #### CMP, CBC ####[address] [address] USAAST [Catalytic activity/Vol]22 U/BSfpfhz18-30Yhw [facility] Physician GroupComment on above:Performed By: #### CMP, CBC ####[address] [address] [place] Bilirubin [Mass/Vol]0.7 mg/dLNormal0.3-1.0The [facility] Hospital Physician GroupComment on above:Performed By: #### CMP, CBC ####[address] [address] USACalcium [Mass/Vol]8.2 mg/dLLow8.6-10.3The [facility] Hospital Physician GroupComment on above:Performed By: #### CMP, CBC ####[address] [address] [place] Chloride [Moles/Vol]98 mmol/BFniiqs58-659Spb [facility] Physician GroupComment on above:Performed By: #### CMP, CBC ####[address] [address] USACO2 [Moles/Vol]27.9 mmol/BWffjfy81.0-31.0The [facility] Hospital Physician GroupComment on above:Performed By: #### CMP, CBC ####[address] [address] [place] Creatinine [Mass/Vol]1.58 mg/dLHigh0.70-1.30The [facility] Hospital Physician GroupComment on above:Performed By: #### CMP, CBC ####[address] [address] USAEstimated GFR43.402 mL/MinNoCone Health Physician Perry County General HospitalComment on above:Performed By: #### CMP, CBC ####[address] [address] USAGlobulin (S) [Mass/Vol]2.3 g/dLNoCone Health Physician GroupComment on above:Performed By: #### CMP, CBC ####[address] [address] USAGlucose [Mass/Vol]111 mg/jJOvld78-313Ett [facility] Comment on above:Result Comment: Random Glucose Reference Range is dependent on time and content of last meal. Glucose of more than 200 mg/dL in a nonstressed, ambulatory subject supports the diagnosis of Diabetes Mellitus. ADA recommended reference rangePerformed By: #### CMP, CBC ####[address] [address] USAPotassium [Moles/Vol]3.6 mmol/LNormal 3.5-5.1The [facility] Hospital Physician GroupComment on above:Performed By: #### CMP, CBC ####[facility] [address] [place] [phone] [place] Protein [Mass/Vol]5.1 g/dLLow6.4-8.9The [facility] Physician GroupComment on above:Performed By: #### CMP, CBC ####[facility] [address] [place] [address] USASodium [Moles/Vol]132 mmol/YNxi127-947Usd [facility] Physician GroupComment on above:Performed By: #### CMP, CBC ####[facility] [address] [place] [address] USAUrea nitrogen [Mass/Vol]24 mg/dLNormal7-25The [facility] Hospital Physician GroupComment on above: Performed By: #### CMP, CBC ####[place] [address] [place] [address] USACreatinine [Mass/volume] in Serum or PlasmaOrdered By: Sandip Bunting on 05-03-2574Cnydbmsizy [Mass/Vol]Creatinine [Mass/volume] in Serum or PlasmaHigh0.70-1.30[facility]huja Medical CenterEosinophils Auto (Bld) [#/Vol]Ordered By: Sandip Bunting on 92-89-8542Dskrltdhyuq (Bld) [#/Vol] Automated eosinophil count0.0-0.45[facility] Eosinophils/100 WBC Auto (Bld)Ordered By: Sandip Bunting on 03-02-2024 Eosinophils/100 WBC (Bld)Automated eosinophil %.[facility]huja Medical CenterErythrocyte distribution width Auto (RBC) [Ratio]Ordered By: Sandip Bunting on 05-50-4345Xijqpfkbdgm distribution width (RBC) [Ratio]Erythrocyte distribution width [Ratio] by Automated ofixmOyim92.0-14.8[facility]huja Medical CenterGlobulin Calc (S) [Mass/Vol]Ordered By: Sandip Bunting on 32-62-3359Dljeljiq (S) [Mass/Vol]Serum globulin measurement by calculation (mass/volume)[facility]ja Medical CenterGlucose [Mass/volume] in Serum or PlasmaOrdered By: Sandip Bunting on 33-52-6264Tyxmree [Mass/Vol]Glucose [Mass/volume] in Serum or MylcmkSykm49-611WywdqnsklUniversity Hospitals Ahuja Medical Center Comment on above:ADA recommended reference rangeRandom Glucose Reference Range is dependent on time and content of last meal. Glucose of more than 200 mg/dL in a nonstressed, ambulatory subject supports the diagnosisof Diabetes Mellitus. Hematocrit Auto (Bld) [Volume fraction]Ordered By: Sandip Aguirre on 03-02-2024 Hematocrit (Bld) [Volume fraction]Hematocrit [Volume Fraction] of Blood by Automated zrkvkRqh41.8-50.0[facility]huja Medical CenterHemoglobin [Mass/volume] in BloodOrdered By: Sandip Bunting on 35-02-4330Bltestmihg (Bld) [Mass/Vol]Hemoglobin [Mass/volume] in GodzlLal19.0-17.0[facility]ja Medical CenterLeukocytes [#/volume] corrected for nucleated erythrocytes in Blood by Automated counOrdered By: Sandip Bunting on 18-08-2955VFN corrected for nucl RBC Auto (Bld) [#/Vol]Leukocytes [#/volume] corrected for nucleated erythrocytes in Blood by Automated coun4.1-10.5FC[facility] Clinic Foundation Lymphocytes Auto (Bld) [#/Vol]Ordered By: Sandip Bunting on 03-02-2024 Lymphocytes (Bld) [#/Vol]Lymphocytes [#/volume] in Blood by Automated countLow 1.00-4.8[facility]huja Medical CenterLymphocytes/100 WBC Auto (Bld)Ordered By: Sandip Bunting on 12-88-2654Pvxcepruzdz/100 WBC (Bld)Lymphocytes/100 leukocytes in Blood by Automated count.[facility]ja Medical CenterMCH Auto (RBC) [Entitic mass]Ordered By: Sandip Bunsantiago on 01-92-7826BLB (RBC) [Entitic mass]MCH [Entitic mass] by Automated count27.5-35.2FCleveland Clinic FoundationMCHC Auto (RBC) [Mass/Vol]Ordered By: Sandip Aguirre on 03-91-7522WBSX (RBC) [Mass/Vol]MCHC [Mass/volume] by Automated count32.5-35.6FCleveland Clinic FoundationMCV Auto (RBC) [Entitic vol]Ordered By: Sandip Bunting on 40-03-8121SUF (RBC) [Entitic vol]MCV [Entitic volume] by Automated countHigh 83.5-101[facility]ja Medical CenterMonocytes Auto (Bld) [#/Vol]Ordered By: Sandip Bunting on 39-68-5306Zknpqaoqa (Bld) [#/Vol]Automated blood monocyte count0.0-0.8[facility] Medical CenterMonocytes/100 WBC Auto (Bld)Ordered By: Sandip Bunting on 87-47-0001Mqmuaqdrc/100 WBC (Bld)Automated monocyte %. [facility]ja Medical CenterNeutrophils Auto (Bld) [#/Vol]Ordered By: Sandip Bunting on 15-88-2566Jhrpzrbxbpt (Bld) [#/Vol]Neutrophils [#/volume] in Blood by Automated count1.8-7.7FCleveland Clinic FoundationNeutrophils/100 WBC Auto (Bld)Ordered By: Sandip Bunting on 32-32-5297Uivlkoshtjl/100 WBC (Bld) Automated neutrophil %.[facility] Medical CenterNo Panel Information Ordered By: Sandip Bunting on 16-46-2238Avcyyjzzd GFR (CKD-EPI)43.402 mL/Min [facility] Medical CenterPharmacy Creatinine Clearance (ChemN/AFCleveland Clinic FoundationNucleated erythrocytes [Presence] in Blood by Automated countOrdered By: Sandip Bunting on 99-46-9758Foxdxubfo RBC Auto Ql (Bld) Nucleated erythrocytes [Presence] in Blood by Automated count0-0.5FCleveland Clinic FoundationPlatelet mean volume Auto (Bld) [Entitic vol]Ordered By: Sandip Bunting on 10-37-2997Tonlkqsh mean volume (Bld) [Entitic vol]Platelet mean volume [Entitic volume] in Blood by Automated count6.6-10.1FCleveland Clinic FoundationPlatelets Auto (Bld) [#/Vol]Ordered By: Sandip Bunting on 63-57-1782Bvnkicpdi (Bld) [#/Vol]Platelets [#/volume] in Blood by Automated aighu857-225NuofgkdpxUniversity Hospitals Ahuja Medical CenterPotassium [Moles/volume] in Serum or PlasmaOrdered By: Sadnip Bunting on 93-82-1549Uakpxvoel [Moles/Vol]Potassium [Moles/volume] in Serum or Plasma3.5-5.1FCleveland Clinic FoundationProtein [Mass/volume] in Serum or PlasmaOrdered By: Sandip Bunting on 34-16-9297Mjijtnh [Mass/Vol]Protein [Mass/volume] in Serum or PlasmaLow6.4-8.9[facility]ja Medical CenterRBC Auto (Bld) [#/Vol]Ordered By: Sandip Bunting on 76-89-7635UHH (Bld) [#/Vol]Erythrocytes [#/volume] in Blood by Automated countLow3.90-5.60 [facility]erry Hospitalerum or plasma albumin/globulin mass ratio Ordered By: Sandip Bunting on 76-33-7494Uevxznn/Globulin [Mass ratio]Serum or plasma albumin/globulin mass ratioMartins Ferry Hospitalerum or plasma anion gap determinationOrdered By: Sandip Bunting on 87-96-3613Jhurr gap [Moles/Vol]Serum or plasma anion gap determination6.0-15.0Mart[facility] Ferry Hospitalodium [Moles/volume] in Serum or PlasmaOrdered By: Sandip Bunting on 17-87-5571Ycvltm [Moles/Vol]Sodium [Moles/volume] in Serum or PlasmaLow 136-145[facility]ja Medical CenterUrea nitrogen [Mass/volume] in Serum or PlasmaOrdered By: Sandip Bunting on 49-29-7434Bcgn nitrogen [Mass/Vol]Urea nitrogen [Mass/volume] in Serum or Plasma7-25[facility] WBC Auto (Bld) [#/Vol]Ordered By: Sandip Bunting on 34-25-2068ZAL (Bld) [#/Vol] Leukocytes [#/volume] in Blood by Automated count4.1-10.5FCleveland Clinic FoundationANION GAPon 54-15-6549Oaega gap [Moles/Vol]12.0 mmol/LNormal 8.0-16.0Tyler County HospitalComment on above:Result Comment: ANION GAP = Sodium -(Chloride + CO2)Performed By: #### ANION, CBCND, EGFR1, BMP #### [facility] [address] [place] [address]Sswcv Gapon 18-32-8026Ivlot gap [Moles/Vol]12.0 mmol/L8.0 - 16.0 meq/LBon [facility]ulton County Health CenterComment on above:ANION GAP = Sodium -(Chloride + CO2) Performed at [facility] [address] [place] [address] BASIC METABOL PANELon 16-84-4655Ilvhqpw [Mass/Vol]8.5 mg/dLNormal8.5-10.5SHarris Health System Lyndon B. Johnson HospitalComment on above:Performed By: #### ANION, CBCND, EGFR1, BMP #### [facility] [address] [address]Vcdilarz [Moles/Vol]96 mmol/BLyy61-283WnuovTyler County Hospital Comment on above:Performed By: #### ANION, CBCND, EGFR1, BMP #### [facility] [address] [place] [address]BC7 [Moles/Vol]23 mmol/AUabzmz48-35KkxjzTyler County Hospital Comment on above:Performed By: #### ANION, CBCND, EGFR1, BMP #### [facility] [address] [address]Hrfakovunq [Mass/Vol]1.5 mg/dLHigh0.4-1.2SHarris Health System Lyndon B. Johnson HospitalComment on above:Performed By: #### ANION, CBCND, EGFR1, BMP #### [facility] [address] [place] [address]Vwvzczf [Mass/Vol]100 mg/dNNqtodb40-052CkhpnTyler County Hospital Comment on above:Performed By: #### ANION, CBCND, EGFR1, BMP #### [facility] [address] [place] [address]Zetpjfigv [Moles/Vol]3.7 mmol/LNormal3.5-5.2SHarris Health System Lyndon B. Johnson HospitalComment on above:Performed By: #### ANION, CBCND, EGFR1, BMP #### [facility] [address] [place], [place] [address]Zpwxce [Moles/Vol]131 mmol/CRre393-955UsuwgTyler County Hospital Comment on above:Performed By: #### ANION, CBCND, EGFR1, BMP #### [facility] [address] [place], [place] [address]Aftl nitrogen [Mass/Vol]30 mg/dLHigh7-22Tyler County HospitalComment on above:Performed By: #### ANION, CBCND, EGFR1, BMP #### [facility] [address] [place], [place] [address]Pisgi metabolic 2000 panelon 71-20-8866Koezgpo [Mass/Vol]8.5 mg/dL 8.5 - 10.5 mg/dLBon Secours Chillicothe Va Medical Centery Mercy Health Anderson HospitalComment on above:Performed at [facility] [address] [place], [place] [address]Pynzjgud [Moles/Vol]96 mmol/LLow98 - 111 meq/LBon Secours Mercy HealthCO2 [Moles/Vol]23 mmol/L23 - 33 meq/LBon Secours Mercy HealthCreatinine [Mass/Vol]1.5 mg/dLHigh0.4 - 1.2 mg/dLBon Secours Mercy HealthGlucose [Mass/Vol]100 mg/dL70 - 108 mg/dLBon Secours Mercy Health Potassium [Moles/Vol]3.7 mmol/L3.5 - 5.2 meq/LBon Secours Mercy HealthSodium [Moles/Vol]131 mmol/DTnu400 - 145 meq/LBon Secours Mercy HealthUrea nitrogen [Mass/Vol]30 mg/dLHigh7 - 22 mg/dLBon Secours Mercy HealthCBCon 02-27-2024 Erythrocyte distribution width (RBC) [Entitic vol]52.1 iHPxxq50.0 - 45.0 fLBon Secours Mercy HealthErythrocyte distribution width (RBC) [Ratio]13.9 %11.5 - 14.5 %[facility] HealthHematocrit (Bld) [Volume fraction]27.6 %Low42.0 - 52.0 %[facility] HealthHemoglobin (Bld) [Mass/Vol]9.2 g/dLLowBon Secours Mercy HealthInterpretation and review of laboratory resultsAbnormalBon Wilson Memorial HospitalH (RBC) [Entitic mass]34.2 fxLwye56.0 - 33.0 pgHenrico Doctors' Hospital—Henrico CampusHC (RBC) [Mass/Vol]33.3 g/dLBon Wilson Memorial HospitalV (RBC) [Entitic vol]102.6 rWDvyr03.0 - 94.0 fLSentara Virginia Beach General HospitalPlatelet mean volume (Bld) [Entitic vol]10.2 fL9.4 - 12.4 fLSentara Virginia Beach General HospitalComment on above: Performed at [address] [address]Pwpyuxlxp (Bld) [#/Vol]282 10*3/uLSentara Virginia Beach General HospitalRBC (Bld) [#/Vol]2.69 10*6/uLLow [facility] General HospitalWBC (Bld) [#/Vol]13.6 10*3/uLHighBon [facility] Regional HospitalCBC NO DIFFERENTIALon 46-45-2409Qjepndoqqod distribution width (RBC) [Ratio]13.9 %Zaoucq06.5-14.5SHarris [facility] System [facility] Johnson Hospital Comment on above:Performed By: #### ANION, CBCND, EGFR1, BMP #### [address] [address]Jtfuncomts (Bld) [Volume fraction]27.6 %Low42.0-52.0T[facility] County HospitalComment on above:Performed By: #### ANION, CBCND, EGFR1, BMP #### [address] [address]Rgutkipfbh (Bld) [Mass/Vol]9.2 g/dLLow14.0-18.0Tyler County HospitalComment on above:Performed By: #### ANION, CBCND, EGFR1, BMP #### [facility] [address] [place] [address]UYZ (RBC) [Entitic mass]34.2 sxTkju67.0-33.0T[facility] County HospitalComment on above:Performed By: #### ANION, CBCND, EGFR1, BMP #### [facility] [address] [place] [address]HGNP (RBC) [Mass/Vol]33.3 g/xNVuzpdg26.2-35.5SHarris Health System Lyndon B. Johnson HospitalComment on above:Performed By: #### ANION, CBCND, EGFR1, BMP #### [facility] [address] [place] [address]ZXV (RBC) [Entitic vol]102.6 vGLtjs11.0-94.0T[facility] HospitalComment on above:Performed By: #### ANION, CBCND, EGFR1, BMP #### [facility] [address] [place] [address]RJDSEHDF005 thou/fc2Zdzjik792-484MldspTyler County Hospital Comment on above:Performed By: #### ANION, CBCND, EGFR1, BMP #### [facility] [address] [place] [address]Fqbkbjlw mean volume (Bld) [Entitic vol]10.2 fLNormal9.4-12.4SHarris Health System Lyndon B. Johnson HospitalComment on above:Performed By: #### ANION, CBCND, EGFR1, BMP #### [facility] [address] [address]PZF7.69 mill/ec5Zfh4.70-6.10T[facility] County HospitalComment on above:Performed By: #### ANION, CBCND, EGFR1, BMP #### [facility] [address] [place] [address]KYZ-KH47.1 yEHlug21.0-45.0T[facility] County HospitalComment on above:Performed By: #### ANION, CBCND, EGFR1, BMP #### [facility] [address] [place] [address]UUK96.6 thou/ry4Eidv3.8-10.8T[facility] County HospitalComment on above:Performed By: #### ANION, CBCND, EGFR1, BMP #### [facility] [address] [place] [address]WPE Rhythm Stripon 70-46-9717BOGQRAZFjoInova Women's HospitalBon Fulton County Health CenterGFR, ESTIMATEDon 48-45-1036AWO/1.73 sq M.predicted MDRD (S/P/Bld) [Vol rate/Area]46 mL/min/{1.73_m2}Abnormal>60Bon [facility]ult[facility] County Health CenterComment on above:Pediatric calculator link https://www.kidney.org/professionals/kdoqi/gfr_calculatorped Effective Dec [...] that affects renal tubular secretion. Performed at [facility] [employer] [address] [address] Result Comment: Pediatric calculator link https://www.kidney.org/professionals/kdoqi/gfr_calculatorped Effective [...] By: #### ANION, CBCND, EGFR1, BMP #### [employer] [address] [place] [address]Js Panel Informationon 30-47-7466Lupsgkzabddiva and review of laboratory resultsAbnormalLifePoint HospitalsANION GAPon 26-96-1189Xqchu gap [Moles/Vol]13.0 mmol/LNormal8.0-16.0T[facility] County HospitalComment on above:Result Comment: ANION GAP = Sodium -(Chloride + CO2)Performed By: #### NTBNP, TSH3, HH #### [employer] [address] [place], [place] [address]Wurxg Gapon 39-79-7382Ipngu gap [Moles/Vol]13.0 mmol/L8.0 - 16.0 meq/LBon [facility] County Health CenterComment on above:ANION GAP = Sodium -(Chloride + CO2) Performed at [facility] [address] [place] [address] BASIC METABOL PANELon 23-19-1409Dbtxemp [Mass/Vol]8.9 mg/dLNormal8.5-10.5SHarris Health System Lyndon B. Johnson HospitalComment on above:Performed By: #### REINA CORRALES, #### [facility] [address] [place] [address]Frlqteea [Moles/Vol]97 mmol/DRhd26-111OmlqlTyler County Hospital Comment on above:Performed By: #### REINA CORRALES, #### [facility] [address] [place] [address]WW7 [Moles/Vol]24 mmol/BIlnikf75-00VsrahTyler County Hospital Comment on above:Performed By: #### REINA CORRALES, #### [facility] [address] [place] [address]Aaqxkcsxli [Mass/Vol]1.2 mg/dLNormal0.4-1.2SHarris Health System Lyndon B. Johnson HospitalComment on above:Performed By: #### REINA CORRALES, #### [facility] [address] [place] [address]Ewlsyvy [Mass/Vol]109 mg/wGErjk83-090GxkskTyler County Hospital Comment on above:Performed By: #### REINA CORRALES, #### [facility] [address] [place] [address]Tylumvxky [Moles/Vol]3.5 mmol/LNormal3.5-5.2SHarris Health System Lyndon B. Johnson HospitalComment on above:Performed By: #### REINA CORRALES, HH #### [facility] [address] [place] [address]Tblett [Moles/Vol]134 mmol/CMjh129-652WrszlTyler County Hospital Comment on above:Performed By: #### REINA CORRALES, HH #### [facility] [address], [place] [address]Vfjy nitrogen [Mass/Vol]21 mg/dLNormal7-22SaColumbus Community HospitalComment on above:Performed By: #### NTBNP, TSH3, #### [facility] [address], [place] [address]Fxcff metabolic 2000 panelon 94-58-9457Tgwndqn [Mass/Vol]8.9 mg/dL 8.5 - 10.5 mg/dLBon [facility]ulton County Health CenterComment on above:Performed at [facility] [address] [place], [place] [address]Redkhbqu [Moles/Vol]97 mmol/LLow98 - 111 meq/LBon SecWoman's Hospital HealthCO2 [Moles/Vol]24 mmol/L23 - 33 meq/LBon [facility] CenterCreatinine [Mass/Vol]1.2 mg/dL0.4 - 1.2 mg/dLBon [facility] Health CenterGlucose [Mass/Vol]109 mg/sLBnvd35 - 108 mg/dLBon [facility] CenterInterpretation and review of laboratory resultsAbnormalBon [facility] County Health CenterPotassium [Moles/Vol]3.5 mmol/L3.5 - 5.2 meq/LBon [facility] Sodium [Moles/Vol]134 mmol/FYle470 - 145 meq/LBon [facility] Health CenterUrea nitrogen [Mass/Vol]21 mg/dL7 - 22 mg/dLBon [facility] County Health CenterGFR, ESTIMATEDon 29-60-2761TOO/1.73 sq M.predicted MDRD (S/P/Bld) [Vol rate/Area]60 mL/min/{1.73_m2}Normal>60Bon [facility] County Health CenterComment on above:Pediatric calculator link https://www.kidney.org/professionals/kdoqi/gfr_calculatorped Effective Dec [...] that affects renal tubular secretion. [place] [address] Result Comment: Pediatric calculator link https://www.kidney.org/professionals/kdoqi/gfr_calculatorped Effective [...] tubular secretion.Performed By: #### REINA CORRALES, #### [address] [address]PVD,HCTon 16-97-6596Lgujgwbvaz (Bld) [Volume fraction]27.7 %Low 42.0-52.0[facility] HospitalComment on above:Performed at [address] [address]Ntysajsij By: #### REINA CORRALES, #### [address] [address]Zqtddipikn (Bld) [Mass/Vol]9.3 g/dLLow14.0-18.0[facility] on above:Performed By: #### REINA CORRALES, #### [address] [address]Tehwblsjvq and Hematocrit panel (Bld)on 94-72-7562Brrjswdyjhbvxt and review of laboratory resultsAbnormalBon [facility] HospitalNo Panel Informationon 48-90-8272Ymy [facility] County Health CenterANION GAPon 10-59-0598Vdmkf gap [Moles/Vol]11.0 mmol/LNormal8.0-16.0[facility] HospitalComment on above:Result Comment: ANION GAP = Sodium -(Chloride + CO2) Performed By: #### POCGL #### [address] [address]Ixvvc Gapon 45-59-8863Asgnd gap [Moles/Vol]11.0 mmol/L8.0 - 16.0 meq/LBon [facility] CenterComment on above:ANION GAP = Sodium -(Chloride + CO2) Performed at [facility] [address] [place] [address] BASIC METABOL PANELon 92-55-7321Eybowhd [Mass/Vol]8.5 mg/dLNormal8.5-10.5SHarris Health System Lyndon B. Johnson HospitalComment on above:Performed By: #### POCGL #### [address] [address]Hfrzyqum [Moles/Vol]97 mmol/BScx38-372UrcggTyler County Hospital Comment on above:Performed By: #### POCGL #### [address] [address]OV7 [Moles/Vol]26 mmol/BYlpqgz06-97WpzzvTyler County Hospital Comment on above:Performed By: #### POCGL #### [address] [address]Bjkdbcxlxk [Mass/Vol]1.1 mg/dLNormal0.4-1.2SHarris Health System Lyndon B. Johnson HospitalComment on above:Performed By: #### POCGL #### [address] [address]Fewkqri [Mass/Vol]100 mg/jEIajtze15-809OdaytTyler County Hospital Comment on above:Performed By: #### POCGL #### [address] [address]Pcyqygixv [Moles/Vol]2.9 mmol/LLow3.5-5.2SHarris [facility] System Lyndon B. Johnson HospitalComment on above:Performed By: #### POCGL #### [facility] [address] [place] [address]Prgswo [Moles/Vol]134 mmol/OEgf060-585SuvasTyler County Hospital Comment on above:Performed By: #### POCGL #### [facility] [address] [place] [address]Hicf nitrogen [Mass/Vol]17 mg/dLNormal7-22T[facility] County HospitalComment on above:Performed By: #### POCGL #### [address] [address]UPTPT CULTUREon 46-95-6241Ftomivlq identified Cx Nom (Bld) MICROBIOLOGY REPORT [facility], [address] [place] [address], [facility] PATIENT: TAVO WALLIS LOCATION: [facility] : 1940 AGE: 83 SEX: M ADM: 02/21/24 Att. Physician: RANDI BURRIS Order Id: [id number] Req. Physician: RANDA KING Source: wqnwo-Luucq-bahpcygxok <5.5oz./set volume Site: Peripheral Vein Collected: 02/25/24 07:19 Current Antibiotics: not stated Antibiotics comment: C O M M E N T S Source:->Blood STATUS OF ORDERED AND REPORTED TESTS BLOOD CULTURE FINAL 03/01/24 BLOOD CULTURE FINAL 03/01/24 08:06 02/26/24 No growth 24 hours. 02/27/24 No growth 48 hours. 03/01/24 No growth at 5 daysNormalSHarris Health System Lyndon B. Johnson HospitalBacteria identified Cx Nom (Bld)MICROBIOLOGY REPORT [facility], [address] [place] [address], [facility] PATIENT: TAVO WALLIS LOCATION: [facility] : 1940 AGE: 83 SEX: M ADM: 02/21/24 Att. Physician: RANDI BURRIS Order Id: [id number] Req. Physician: ORIANA, OLUREMI Source: wliqd-Pabok-khuvbbbkxk <5.5oz./set volume Site: Peripheral Vein Collected: 02/25/24 07:19 Current Antibiotics: not stated Antibiotics comment: STATUS OF ORDERED AND REPORTED TESTS BLOOD CULTURE FINAL 03/01/24 BLOOD CULTURE FINAL 03/01/24 08:06 02/26/24 No growth 24 hours. 02/27/24 No growth 48 hours. 03/01/24 No growth at 5 daysNoParkland Memorial HospitalBaowensboro health regional hospital metabolic 2000 panelon 41-85-8390Wxtkpjl [Mass/Vol]8.5 mg/dL8.5 - 10.5 mg/dLBon SecLicking Memorial HospitalComment on above:Performed at [facility] [address] [place] [address]Xvytwfrg [Moles/Vol]97 mmol/LLow98 - 111 meq/LBon SecVeterans Health Administrationy HealthCO2 [Moles/Vol]26 mmol/L23 - 33 meq/LBon SecWoman's Hospital HealthCreatinine [Mass/Vol]1.1 mg/dL0.4 - 1.2 mg/dLBon [facility]ours [facility] HealthGlucose [Mass/Vol]100 mg/dL70 - 108 mg/dLBon Secours [facility] HealthInterpretation and review of laboratory resultsAbnormalBon Secours [facility] Centery HealthPotassium [Moles/Vol]2.9 mmol/LLow3.5 - 5.2 meq/LBon SecWoman's Hospital HealthSodium [Moles/Vol]134 mmol/LLow 135 - 145 meq/LBon SecWoman's Hospital HealthUrea nitrogen [Mass/Vol]17 mg/dL7 - 22 mg/dLBon SecWoman's Hospital HealthCBCon 97-93-1215Azrasreljbz distribution width (RBC) [Entitic vol]57.1 qKGukv79.0 - 45.0 fLBon [facility] Interpretation and review of laboratory resultsAbnormalBon SecWoman's Hospital Health Platelets (Bld) [#/Vol]180 10*3/uLBon Secours [facility] Centery HealthRBC (Bld) [#/Vol]2.49 10*6/uLLowBon Secours [facility] Centery HealthWBC (Bld) [#/Vol]11.7 10*3/uLHighBon [facility]ours [facility] HealthBon [facility] HealthCBC NO DIFFERENTIALon 59-54-4717Smkusjtxocl distribution width (RBC) [Ratio]14.3 %Xuzzkq13.5-14.5Bon [facility] Comment on above:Performed By: #### REINA CORRALES, #### [facility] [address] [place] [address]Bwcnkstcco (Bld) [Volume fraction]27.1 %Low42.0-52.0[facility] on above:Performed By: #### REINA CORRALES, HH #### [facility] [address] [place] [address]Nahnmcngos (Bld) [Mass/Vol]8.8 g/dLLow14.0-18.0Bon [facility] on above:Performed By: #### REINA CORRALES, HH #### [facility] [address] [place] [address]ARP (RBC) [Entitic mass]35.3 vkOoac44.0-33.0Bon [facility] CenterComment on above:Performed By: #### REINA CORRALES, #### [facility] [address] [place] [address] 10[address]RVSA (RBC) [Mass/Vol]32.5 g/kXGgufll58.2-35.5Bon [facility] on above:Performed By: #### REINA CORRALES, #### [facility] [address] [place] [address]PWE (RBC) [Entitic vol]108.8 gBBkht34.0-94.0Bon [facility] on above:Performed By: #### REINA CORRALES, #### [facility] [address] [place] [address]AGDFPTOC451 thou/ne3Jpqkqh882-682JtvuyTyler County Hospital Comment on above:Performed By: #### REINA CORRALES, #### [facility] [address] [place] [address]Kaddnsyp mean volume (Bld) [Entitic vol]10.0 fLNormal9.4-12.4Bon [facility] Hospitalpine [facility] on above:Performed at [facility] [address] [address]Bebhwflxj By: #### REINA CORRALES, JE #### [facility] [employer] [address] [place] [address]WIE9.49 mill/nk9Uic2.70-6.10T[facility] HospitalComment on above:Performed By: #### REINA CORRALES, JE #### [facility] [address] [place] [address] 8[address]BSZ-AW34.1 tAKhzq81.0-45.0[facility] HospitalCompine rest [facility] on above:Performed By: #### REINA CORRALES, JE #### [facility] [employer] [address] [address]DUL51.7 thou/ws8Viqn2.8-10.8[facility] HospitalComment on above:Performed By: #### REINA CORRALES, JE #### [facility] [employer] [address] [address]FEP, ESTIMATEDon 27-44-1681VKP/1.73 sq M.predicted MDRD (S/P/Bld) [Vol rate/Area]67 mL/min/{1.73_m2}Normal>60Bon [facility] on above:Pediatric calculator link https://www.kidney.org/professionals/kdoqi/gfr_calculatorped Effective Dec [...] that affects renal tubular secretion. Performed at [facility] [address] [address] Result Comment: Pediatric calculator link https://www.kidney.org/professionals/kdoqi/gfr_calculatorped Effective [...] renal tubular secretion.Performed By: #### POCGL #### [address] [address]ALG,HCTon 91-49-4059Ugezfgkyzs (Bld) [Volume fraction]25.2 %Low 42.0-52.0[facility] on above:Performed at [address] [address]Usefinxub By: #### POCGL #### [address] [address]Pxrrequaja (Bld) [Mass/Vol]8.2 g/dLLow14.0-18.0[facility] on above:Performed By: #### POCGL #### [address] [address]Vytacxlzqv and Hematocrit panel (Bld)on 12-75-9906Pssnuukqhqpuxt and review of laboratory resultsAbnormalBon [facility] Regional HospitalInfluenza virus A and B RNA and SARS-CoV-2 (COVID-19) N gene panel SMITHA+probe (Resp)on 21-48-8437FKLAG RNA SMITHA+probe Ql (Resp)Not detectedNOT DETECTEDSentara Virginia Beach General HospitalFLUBV RNA SMITHA+probe Ql (Resp)Not detectedNOT DETECTEDIn[facility] on above:Performed at [address] [address]LRYZ-FdN-5 (COVID-19) RNA SMITHA+probe Ql (Resp)Not detectedNOT DETECTEDInova Fair Oaks Hospital on above:Not Detected results do not [...] in nasopharyngeal and nasal swab specimens. Bon [facility] Health CenterLACTIC ACID, SEPSISon 77-97-4108GEVXXD ACID, SEPSIS0.9 mmol/LNormal0.5-1.9[facility] HospitalComment on above:Performed By: #### NTBNP, TSH3, #### [address] [address]MZMTPR ACID, SEPSIS1.0 mmol/LNormal0.5-1.9[facility] HospitalComment on above:Performed By: #### LACDS #### [address] [address]Cbgnvaz, Sepsison 19-78-8863Pauwbd Acid, Sepsis0.9 mmol/L0.5 - 1.9 mmol/LBon [facility] County Health CenterComment on above:Performed at [facility] [address] [place] [address]Syo [facility] County Health CenterLactic Acid, Sepsis 1.0 mmol/L0.5 - 1.9 mmol/LBon [facility] CenterComment on above:Performed at [facility] [place] [address]Sent[facility] HospitalNo Panel Informationon 53-32-9892Pct [facility] Health CenterSARS-COV-2 & INFLUENZA A/Bon 37-39-2865QQGRIVPXH A, RT-PCRNot detectedNormalNOT DETECTEDTyler County HospitalComment on above:Performed By: #### CVFLU #### [address] [address]FAXDUJACS B, RT-PCRNot detectedNormalNOT DETECTEDTyler County HospitalComment on above:Performed By: #### CVFLU #### [address] [address]RVMN-SlE-9 (COVID-19) RNA SMITHA+probe Ql (Unsp spec)Not detected NormalNOT DETECTEDTyler County HospitalComment on above:Result Comment: Not Detected results [...] nasal swab specimens.Performed By: #### CVFLU #### [address] [address]GJRJF GAPon 84-06-4890Cxeum gap [Moles/Vol]11.0 mmol/LNormal 8.0-16.0[facility] HospitalComment on above:Result Comment: ANION GAP = Sodium -(Chloride + CO2)Performed By: #### POCGL #### [address] [address]Wgwme Gapon 56-74-3110Epoku gap [Moles/Vol]11.0 mmol/L8.0 - 16.0 meq/LBon [facility] Health CenterComment on above:ANION GAP = Sodium -(Chloride + CO2) Performed at [facility] [address] [address] BASIC METABOL PANELon 95-71-1431Qcdowuk [Mass/Vol]8.6 mg/dLNormal8.5-10.5SHarris Health System Lyndon B. Johnson HospitalComment on above:Performed By: #### POCGL #### [address] [address]Uqnrgagx [Moles/Vol]104 mmol/SWyvzug76-721CwojrTyler County HospitalComment on above:Performed By: #### POCGL #### [address] [address]LG0 [Moles/Vol]23 mmol/XKyrjba79-51WwtjjTyler County Hospital Comment on above:Performed By: #### POCGL #### [address] [address]Rzmrkwmore [Mass/Vol]1.2 mg/dLNormal0.4-1.2SHarris Health System Lyndon B. Johnson HospitalComment on above:Performed By: #### POCGL #### [facility] [address] [place] [address]Rohotml [Mass/Vol]126 mg/kEMmql41-828LfrwoTyler County Hospital Comment on above:Performed By: #### POCGL #### [facility] [address] [place] [address]Dcnjokkoo [Moles/Vol]3.9 mmol/LNormal3.5-5.2SHarris Health System Lyndon B. Johnson HospitalComment on above:Performed By: #### POCGL #### [facility] [address] [place] [address]Muwdap [Moles/Vol]138 mmol/KAihsai646-355NyrocTyler County HospitalComment on above:Performed By: #### POCGL #### [facility] [address] [place] [address]Jelr nitrogen [Mass/Vol]20 mg/dLNormal7-22T[facility] HospitalComment on above:Performed By: #### POCGL #### [address] [address]Uurui metabolic 2000 panelon 87-67-7701Scruqug [Mass/Vol]8.6 mg/dL 8.5 - 10.5 mg/dLBon SecVeterans Health Administrationy Mercy Health Anderson HospitalComment on above:Performed at [facility] [address] [place] [address]Wppzgdzv [Moles/Vol]104 mmol/L98 - 111 meq/LBon Secours Mercy HealthCO2 [Moles/Vol]23 mmol/L23 - 33 meq/LBon [facility]ours Mercy HealthCreatinine [Mass/Vol]1.2 mg/dL0.4 - 1.2 mg/dLBon Secours Mercy HealthGlucose [Mass/Vol]126 mg/tEJdpl57 - 108 mg/dLBon Secours Mercy HealthInterpretation and review of laboratory resultsAbnormalBon Secours Mercy HealthPotassium [Moles/Vol]3.9 mmol/L3.5 - 5.2 meq/LBon [facility]ours [facility] Sodium [Moles/Vol]138 mmol/L135 - 145 meq/LBon Secours Mercy HealthUrea nitrogen [Mass/Vol]20 mg/dL7 - 22 mg/dLBon Secours Mercy HealthCT HEAD WO CONTRASTon 03-71-8742OU HEAD WO CONTRASTCT head without contrast COMPARISON: [...] Signed by: Dudley Mattson MD 02/24/24 Final resultNormalSHarris Health System Lyndon B. Johnson HospitalCT Head WO contraston . No acute intracranial abnormality. 2. Global cerebral volume loss and chronic microvascular ischemic changes. This document has been electronically signed by: Dudley Mattson MD on 02/24/2024 07:43 PM All CTs at this facility use dose modulation techniques and iterative reconstructions, and/or weight-based dosing when appropriate to reduce radiation to a low as reasonably achievable.[facility] CONSOLIDATEDCT head without contrast COMPARISON: None FINDINGS: Global cerebral volume loss and chronic microvascular ischemic changes. No acute intracranial hemorrhage, extra-axial fluid collection, mass effect, or midline shift. Ventricular system and basilar cisterns are patent. Hensley-white matter differentiation is maintained. No gross orbital abnormality. No suspicious or acute bone lesion. Mastoid air cells and paranasal sinuses are predominantly clear. [facility] Dudley Leger MD - 02/24/2024 CT head [...] radiation to a low as reasonably achievable. [facility] HospitalRadiology Study observation (narrative)[facility] HospitalSelero [facility] HospitalCT Head WO contrastOrdered By: Dudley Mattson on 86-31-1598Okq [facility] CenterGFR, ESTIMATEDon 75-79-0063PUQ/1.73 sq M.predicted MDRD (S/P/Bld) [Vol rate/Area]60 mL/min/{1.73_m2}Normal>60Bon [facility] on above:Pediatric calculator link https://www.kidney.org/professionals/kdoqi/gfr_calculatorped Effective Dec [...] that affects renal tubular secretion. Performed at [facility] [address] [place] [address] Result Comment: Pediatric calculator link https://www.kidney.org/professionals/kdoqi/gfr_calculatorped Effective [...] By: #### ANION, CBCND, EGFR1, BMP #### [employer] [facility] [address] [place] [address]MPXXNGD POCon 56-47-5673Hqbjhhe [Mass/Vol]126 mg/zNUjcf48-210U[facility] on above:Performed at [facility] [address] [place] [address]Ideebnlii By: #### POCGL #### [address] [address]Kjnfhig Auto test strip (Bld) [Mass/Vol]on 02-24-2024 Interpretation and review of laboratory resultsAbnormCarilion Clinic St. Albans Hospital Bon [facility] Health CenterHGB,HCTon 61-87-2779Rrrvlrgxhi (Bld) [Volume fraction] 26.3 %Low42.0-52.0Bon [facility] on above:Performed at [facility] [address] [place] [address]Nmpwtwecx By: #### POCGL #### [address] [address]Tqzjpgzzrm (Bld) [Mass/Vol]8.3 g/dLLow14.0-18.0Bon [facility] on above:Performed By: #### POCGL #### [address] [address]Qqtcpxggeb and Hematocrit panel (Bld)on 95-95-3440Tvghmiqctdqbky and review of laboratory resultsAbnoAvera McKennan Hospital & University Health Center - Sioux FallsNo Panel Informationon 07-08-8595Ykf [facility] Health CenterPortable XR Chest AP single viewon . Cjkbfygy-kf-shmeco cardiomegaly with pulmonary edema and pleural effusions. Findings are consistent with CHF. This document has been electronically signed by: Dudley Mattson MD on 02/24/2024 09:42 PMWSOUTHEAST MISSOU[facility] CONSOLIDATED1 view chest x-ray Comparison: None Findings: Mtsevhhv-ck-pzdzzq cardiomegaly. Small left and trace right pleural effusions. Cephalization pulmonary vasculature with diffusely increased interstitial markings and diffuse hazy alveolar opacity. No pneumothorax. [facility] Dudley Leger MD - 02/24/2024 1 view chest x-ray Comparison: None Findings: Pagslgrq-qw-mqqiuh cardiomegaly. Small left and trace right pleural effusions. Cephalization pulmonary vasculature with diffusely increased interstitial markings and diffuse hazy alveolar opacity. No pneumothorax. IMPRESSION: 1. Pnnfipgf-mk-dhnplj cardiomegaly with pulmonary edema and pleural effusions. Findings are consistent with CHF. This document has been electronically signed by: Dudley Mattson MD on 02/24/2024 09:42 PM [facility] HospitalsRadiology Study observation (narrative)[facility] HospitalXR CHEST PORTABLEon 09-24-1213QR CHEST PORTABLE1 view chest x-ray Comparison: None Findings: Dzwhxwda-vs-dkphiy cardiomegaly. Small left and trace right pleural effusions. Cephalization pulmonary vasculature with diffusely increased interstitial markings and diffuse hazy alveolar opacity. No pneumothorax. IMPRESSION: 1. Rjtkaodu-re-hhwnje cardiomegaly with pulmonary edema and pleural effusions. Findings are consistent with CHF. This document has been electronically signed by: Dudley Mattson MD on 02/24/2024 09:42 PM Interpreted by: Dudley Mattson MD Signed by: Dudley Mattson MD 02/24/24 Final resultNormalSHarris Health System Lyndon B. Johnson HospitalANION GAPon 67-65-4222Bymar gap [Moles/Vol]10.0 mmol/LNormal8.0-16.0T[facility] County HospitalComment on above: Result Comment: ANION GAP = Sodium -(Chloride + CO2)Performed By: #### GREG CORRALES3, #### [facility] [address] [place], [place] [address]Fdjfp Gapon 94-09-7799Qejkq gap [Moles/Vol]10.0 mmol/L8.0 - 16.0 meq/LBon [facility] Health CenterComment on above:ANION GAP = Sodium -(Chloride + CO2) Performed at [facility] [address] [place] [address] BASIC METABOL PANELon 63-89-2889Segkajm [Mass/Vol]8.4 mg/dLLow8.5-10.5SHarris Health System Lyndon B. Johnson HospitalComment on above:Performed By: #### GREG CORRALES3, #### [facility] [address] [place], [place] [address]Kgrqiwmf [Moles/Vol]105 mmol/WGybzgy11-637QcipjTyler County HospitalComment on above:Performed By: #### REINA CORRALES, HH #### [facility] [address] [place] [address] 820[address]CV0 [Moles/Vol]22 mmol/TDka95-60MesdeTyler County HospitalComment on above:Performed By: #### GREG CORRALES3, HH #### [facility] [address] [place] [address]Hzsubwrpaf [Mass/Vol]1.3 mg/dLHigh0.4-1.2SHarris Health System Lyndon B. Johnson HospitalComment on above:Performed By: #### REINA CORRALES, HH #### [facility] [address] [place] [address]Giclzoh [Mass/Vol]148 mg/eSRgbv85-235GbgixTyler County Hospital Comment on above:Performed By: #### REINA CORRALES, HH #### [facility] [address] [place] [address]Geyzviiiq [Moles/Vol]4.3 mmol/LNormal3.5-5.2SHarris [facility] System Lyndon B. Johnson HospitalComment on above:Performed By: #### REINA CORRALES, HH #### [facility] [address] [place] [address]Etjwwx [Moles/Vol]137 mmol/OXnnrnv132-398LuaxcTyler County HospitalComment on above:Performed By: #### REINA CORRALES, #### [facility] [address] [place] [address] 58[address]Tmmk nitrogen [Mass/Vol]24 mg/dLHigh7-22T[facility] HospitalComment on above:Performed By: #### REINA CORRALES, HH #### [facility] [address] [place] [address]Ahscc metabolic 2000 panelon 27-45-8671Idafbqd [Mass/Vol]8.4 mg/dL Low8.5 - 10.5 mg/dLBon [facility] CenterComment on above:Performed at [facility] [address] [place] [address]Eobxwpnr [Moles/Vol]105 mmol/L 98 - 111 meq/LBon [facility] CenterCO2 [Moles/Vol]22 mmol/LLow23 - 33 meq/L Bon ProtAffin BiotechnologieCreatinine [Mass/Vol]1.3 mg/dLHigh0.4 - 1.2 mg/dLBon ProtAffin BiotechnologieGlucose [Mass/Vol]148 mg/lHVyry89 - 108 mg/dLBon ProtAffin BiotechnologiePotassium [Moles/Vol]4.3 mmol/L3.5 - 5.2 meq/LBon ProtAffin BiotechnologieSodium [Moles/Vol]137 mmol/L135 - 145 meq/LBon ProtAffin BiotechnologieUrea nitrogen [Mass/Vol]24 mg/dLHigh7 - 22 mg/dLBon ProtAffin BiotechnologieCardiac echo study ProcedureOrdered By: Bambi Huntley on 99-98-2809Moixckmng Aorta3.0 cm [employer] Phone: Ascending Aorta Index1.53 cm/m2[facility] [employer] Phone: AV Cusp Mmode1.7 cmBanner Baywood Medical Center [employer] Phone: AV Peak Amwnbthr91yuIuDsh [employer] Phone: AV Peak Velocity1.6 m/sBon [employer] Phone: AV Velocity Ratio0.44[employer] Phone: Body surface area Derived from formula2 m2[facility] [employer] Phone: EF BP36 %Auuihqmy21 - 100 %[employer] Work Phone: Est. RA Mlbvhiac7xxBrTbd [employer] Phone: Fractional Shortening 2D18 %28 - 44 %[employer] Phone: Interpretation and review of laboratory results AbnormalOne [employer] Bill Phone: IVSd1.0 cm0.6 - 1.0 cmOne [employer] Bill Phone: LA Area 2C22.6 cm2Bon [facility] Work Phone: la Area 4C22.8 cm2Bon [facility] Work Phone: LA Diameter4.4 cmBon [facility] Work Phone: LA Major Axis6.5 cmBon [facility] Work Phone: la Minor Axis6.0 cmBon [facility] Work Phone: LA Size Index2.24 cm/m2Bon [facility] Work Phone: LA Volume BP68 sWCgejvekr44 - 58 mLBon [facility] Work Phone: LA Volume Index BP35 ml/n3Besiryeg96 - 34 ml/m2Bon [facility] Work Phone: LA Volume Index MOD A2C34 ml/m216 - 34 ml/m2Bon [facility] Work Phone: LA Volume Index MOD A4C33 ml/m216 - 34 ml/m2Bon [facility] Work Phone: LA Volume MOD A2C67 aCTemxwtoc98 - 58 mLBon [employer]Aff[employer] Work Phone: LA Volume MOD A4C65 aUGcecyrgv32 - 58 mLBon [facility] Work Phone: LV EDV [phone] mLYOOWALK SecOver[facility] Health Work Phone: LV EDV P5V773 mLBon [facility] Work Phone: LV EDV Index A2C69 mL/m2Bon [facility] Work Phone: LV EDV Index A4C66 mL/m2Bon [facility] Work Phone: LV Ejection Fraction A2C38 %[employer] Work Phone: LV Ejection Fraction A4C37 %Bon [facility] Work Phone: LV ESV A2C83 mLBon [facility] Work Phone: [phone] ESV A4C82 mLBon [facility] Work Phone: [phone] ESV Index A2C42 mL/m2Bon [facility] Work Phone: [phone] ESV Index A4C42 mL/m2Bon [facility] Work Phone: [phone] IVRT63.0 msBon [facility] Work Phone: [phone] Mass 2D194.4 g88 - 224 gBon [facility] Work Phone: [phone] Mass 2D Index99.2 g/m249 - 115 g/m2Bon [facility] Work Phone: [phone] RWT Ratio0.44Bon [employer] Work Phone: [phone] cm4.2 - 5.9 cmBon [facility]Over[facility] Work Phone: [phone] Index2.55 cm/m2Bon [facility] Work Phone: LVIDs4.1 cmBon Sec[employer] Work Phone: LVIDs Index2.09 cm/m2Bon [facility] Work Phone: [phone] Peak Sqdexppv1yfJbIge SecOver[facility] Health Work Phone: [phone] Peak Velocity0.7 m/sBon [facility] Work Phone: [phone] cmAbnormal0.6 - 1.0 cmBon [facility] Work Phone: MR Peak Pfkomaiw87ifSvLqs [employer] Work Phone: MR Peak Velocity4.5 m/sBon [facility] Work Phone: [phone] E Velocity1.63 m/sBon [facility] Work Phone: PR Max Velocity1.0 m/sBon [employer] Phone: Pulmonary Artery WIO9hkYuVlt [employer] Phone: [phone] Max Velocity0.8 m/sBon [employer] Phone: [phone] Peak Ernxygpd3ktYrFoq [employer] Phone: [phone] cmBon [employer] [facility] Phone: [phone] [employer] Phone: [phone] cmAbnormal1.7 cmBon [employer] [employer] [facility] Phone: TR Max Velocity3.02 m/sBon [employer] Phone: TR Peak Gaenxoag16pxRpQoi [employer] Phone: TV E Wave Velocity0.5 m/sBon [employer] Phone: [phone] [employer] Phone: Cardiac echo study Procedureon 59-52-2140Qhtx Ventricle: Moderately reduced left ventricular systolic function [...] echo report scanned into cart under care everywhere.[facility] Radiology Study observation (narrative)Bon [facility] Rhythm Strip on 69-74-5440WI 93PACEARTBon [facility] HealthHR 100PACEARTBon [facility] HealthHR 80PACEARTBon Secours VoipSwitchy HealthGFR, ESTIMATEDon 41-48-6876GSN/1.73 sq M.predicted MDRD (S/P/Bld) [Vol rate/Area]55 mL/min/{1.73_m2}Abnormal>60Bon SecOrigin[facility]PSComment on above:Pediatric calculator link https://www.kidney.org/professionals/kdoqi/gfr_calculatorped Effective Dec [...] that affects renal tubular secretion. Performed at [facility] [address] [place] [address] Result Comment: Pediatric calculator link https://www.kidney.org/professionals/kdoqi/gfr_calculatorped Effective [...] secretion.Performed By: #### REINA CORRALES, JE #### [address] [address]GGX,HCTon 92-03-1491Bvyvodnqrq (Bld) [Volume fraction]25.3 %Low 42.0-52.0[facility] on above:Performed at [address] [address]Mmndgrxcf By: #### REINA CORRALES HH #### [address] [address]Seoskfopqc (Bld) [Mass/Vol]8.0 g/dLLow14.0-18.0Bon [facility] on above:Performed By: #### ERINA CORRALES, #### [address] [address]Smbpmdyufr and Hematocrit panel (Bld)on 69-59-0805Repsfydqtdksaq and review of laboratory resultsAbnormHospital Corporation of AmericaNo Panel Informationon 87-63-9491Ouakfpskqxrhzc and review of laboratory resultsAbnormalLifePoint HospitalsANION GAPon 32-12-3718Cukum gap [Moles/Vol]11.0 mmol/LNormal8.0-16.0Tyler County HospitalComment on above:Result Comment: ANION GAP = Sodium -(Chloride + CO2)Performed By: #### REINA CORRALES, JE #### [address] [address]Izzre Gapon 86-73-2777Ewpfx gap [Moles/Vol]11.0 mmol/L8.0 - 16.0 meq/LBon Secours Mercy HealthComment on above:ANION GAP = Sodium -(Chloride + CO2) Performed at [facility] [address] [place] [address] BASIC METABOL PANELon 00-56-7241Ilomxhy [Mass/Vol]8.5 mg/dLNormal8.5-10.5SHarris Health System Lyndon B. Johnson HospitalComment on above:Performed By: #### GREG CORRALES3, #### [facility] [address] [place] [address] 12[address]Isntzfam [Moles/Vol]101 mmol/EImzcxu93-041ZymhrTyler County HospitalComment on above:Performed By: #### GREG CORRALES3, HH #### [facility] [address] [place] [address]QI8 [Moles/Vol]22 mmol/YQws93-13RghkaTyler County HospitalComment on above:Performed By: #### GREG CORRALES3, #### [facility] [address] [place] [address]Obgywhmhfo [Mass/Vol]0.9 mg/dLNormal0.4-1.2SHarris Health System Lyndon B. Johnson HospitalComment on above:Performed By: #### REINA CORRALES, HH #### [facility] [address] [place] [address]Xezvudh [Mass/Vol]165 mg/gVVmpa37-334JelwmTyler County Hospital Comment on above:Performed By: #### GREG CORRALES3, #### [facility] [address] [place] [address] 81980Hepyukawm [Moles/Vol]4.2 mmol/LNormal3.5-5.2SHarris Health System Lyndon B. Johnson HospitalComment on above:Performed By: #### GREG CORRALES3, HH #### [facility] [address] [place] [address]Eglnzm [Moles/Vol]134 mmol/BAtr359-644XaqavTyler County Hospital Comment on above:Performed By: #### GREG CORRALES3, HH #### [facility] [address] [place] [address] 270[address]Lybk nitrogen [Mass/Vol]18 mg/dLNormal7-22SaColumbus Community HospitalComment on above:Performed By: #### NTBNP, TSH3, #### [facility] [address] [place] [address]Lisez metabolic 2000 panelon 78-89-0534Tvhllyp [Mass/Vol]8.5 mg/dL 8.5 - 10.5 mg/dLBon [facility] CenterComment on above:Performed at [facility] [address] [place] [address]67[address]Vwogvjwt [Moles/Vol]101 mmol/L98 - 111 meq/LBon [facility] CenterCO2 [Moles/Vol]22 mmol/LLow23 - 33 meq/LBon [facility] CenterCreatinine [Mass/Vol]0.9 mg/dL0.4 - 1.2 mg/dLBon [facility] CenterGlucose [Mass/Vol]165 mg/kZDnfz88 - 108 mg/dLBon [facility] CenterInterpretation and review of laboratory resultsAbnormalBon [facility] CenterPotassium [Moles/Vol]4.2 mmol/L3.5 - 5.2 meq/LBon [facility] Sodium [Moles/Vol]134 mmol/IIsz611 - 145 meq/LBon [facility] CenterUrea nitrogen [Mass/Vol]18 mg/dL7 - 22 mg/dLBon [facility] CenterBrain Natriuretic Peptideon 75-48-3447Urpqsgmgcje peptide.B prohormone N-Terminal IA [Mass/Vol] 4637.0 pg/mLHigh0.0 - 449.0 pg/mLBon [facility] CenterComment on above: Performed at [facility] [address] [place] [address]ERV Rhythm Stripon 50-59-6976WGCZLGCUjp [facility] CenterHR 120PACEARTBon [facility] Health CenterPACEARTSentara Virginia Beach General HospitalGFR, ESTIMATEDon 06-66-7094PPZ/1.73 sq M.predicted MDRD (S/P/Bld) [Vol rate/Area]85 mL/min/{1.73_m2}Normal>60Bon [facility] Health CenterComment on above:Pediatric calculator link https://www.kidney.org/professionals/kdoqi/gfr_calculatorped Effective Dec [...] that affects renal tubular secretion. [place] [address] Result Comment: Pediatric calculator link https://www.kidney.org/professionals/kdoqi/gfr_calculatorped Effective [...] tubular secretion.Performed By: #### SAVANNA, TSH3, #### [address] [address]VSHQTHG POCon 97-64-7007Himrege [Mass/Vol]155 mg/pYHdon47-908Cis [facility] on above:Performed at [address] [address]Ovjuqukoq By: #### POCGL #### [address] [address]Isnvdyl Auto test strip (Bld) [Mass/Vol]on 02-22-2024 Interpretation and review of laboratory resultsAbnormalCommunity Health SystemsHGB,HCTon 42-34-4614Vbhxbmjiis (Bld) [Volume fraction] 28.7 %Low42.0-52.0[facility] on above:Performed at [address] [address]Lgjfmfzex By: #### NTTRINIDADP, TSH3, #### [address] [address]Wephdxnhwc (Bld) [Mass/Vol]9.1 g/dLLow14.0-18.0Sentara Virginia Beach General HospitalComment on above:Performed By: #### REINA CORRALES, JE #### [facility] [address] [place] [address] 36[address]Ouwditgvmi (Bld) [Volume fraction]30.0 %Low42.0-52.0T[facility] County HospitalComment on above:Performed By: #### REINA CORRALES, JE #### [address] [address]Yyfiwemhqg (Bld) [Mass/Vol]9.5 g/dLLow14.0-18.0Tyler County HospitalComment on above:Performed By: #### REINA CORRALES, #### [address] [address]Rxcdjxnnli and Hematocrit panel (Bld)on 60-01-8581Tdumkhypxzwtwv and review of laboratory resultsAbnormHospital Corporation of AmericaHematocrit (Bld) [Volume fraction]30.0 %Low42.0 - 52.0 %Bon [facility] CenterComment on above:Performed at [facility] [address] [place] [address]Moxgbavnao (Bld) [Mass/Vol]9.5 g/dLLowSentara Virginia Beach General Hospital Interpretation and review of laboratory resultsAbnoBowdle HospitalNT PRO-B NATRIURETIC PEPTIDEon 95-09-8244Hwoiiscmghu peptide B (Bld) [Mass/Vol]4637.0 pg/mLHigh0.0-449.0[facility] Comment on above:Performed By: #### REINA CORRALES, #### [address] [address]Ayemgfzfjtg peptide.B prohormone N-Terminal [place] [Mass/Vol]on 38-35-7406Zyfefpjvulbwtw and review of laboratory resultsAbnoSentara RMH Medical CenterNo Panel Informationon 01-37-8945Hbt [facility] HospitalTSH DL <= 0.005 mIU/L Qnon 38-73-4115HUJ Qn0.678 m[IU]/LBon [facility] CenterCompine rest [facility] on above:Performed at [facility] [address] [place] [address]HWH THIRD GENERATIONon 50-33-3553EID THIRD GENERATION0.678 uIU/mLNormal0.400-4.200SaColumbus Community HospitalComment on above:Performed By: #### REINA CORRALES, #### [facility] [address] [place] [address] 811[address]NTBMXQE POCon 63-93-9635Aolsyqd [Mass/Vol]185 mg/nWXmpv35-999Qjw [facility] CenterCompine rest christ[facility] mental [facility] services on above:Performed at [facility] [address] [place] [address] 629[address]Hxfgrmmhg By: #### REINA CORRALES, JE #### [facility] [address] [place] [address]Cszyvwh Auto test strip (Bld) [Mass/Vol]on 02-21-2024 Interpretation and review of laboratory resultsAbnormalCommunity Health SystemsHGB,HCTon 19-93-3168Pbqpeiypxd (Bld) [Volume fraction] 32.1 %Low42.0-52.0Bon [facility] on above:Performed at [facility] [address] [place] [address] 129[address]Osxaaaspx By: #### REINA CORRALES, #### [facility] [address] [place] [address]Odglekxdkj (Bld) [Mass/Vol]10.3 g/dLLow14.0-18.0[facility] on above:Performed By: #### REINA CORRALES, #### [facility] [address] [place] [address]Pznkdiqlfo and Hematocrit panel (Bld)on 75-25-7249Ahnnjkcyopelln and review of laboratory resultsAbnormalCarilion Roanoke Memorial Hospital HealthTYPE AND SCREENon 00-68-6912ZVYHCfv [facility] CenterRh Factor PositiveBon [facility] HealthTYPE AND SCREEN CAPTURE on 80-01-5446JWMATESU FAZAL CAPTURENegativeNormalSaint Caryn's Medical Center Comment on above:Performed By: #### POCGL #### [facility] [address], [place] [address]ZI CAPTURE (2 D CLONES)PositiveBaylor Scott & White [facility] Center [facility] Centennial Comment on above:Performed By: #### POCGL #### [facility] [address], [place] [address]XBB CAPTUREONoParkland Memorial HospitalComment on above: Performed By: #### POCGL #### [facility] [address] [place] [address]99[address]AY LUMBAR SPINE 1 VWon 49-88-3893UU LUMBAR SPINE 1 VWMOBILE LATERAL LUMBAR SPINE: [...] Signed by: Partha Victor MD 02/21/24 Final resultBaylor Scott & White Medical Center – CentennialXR Lumbar spine Single viewon 03-18-0918Hmfjmkimhbhiee appearance of the lumbar spine. This report has been created using voice recognition software. It may contain minor errors which are inherent in voice recognition technology. Electronically signed by Dr. Partha VictorSARAI [facility] CONSOLIDATEDMOBILTosha LATERAL LUMBAR SPINE: CLINICAL INFORMATION: surgery COMPARISON: No prior study. TECHNIQUE: A single lateral mobile view of the lumbar spine was obtained For localization purposes. FINDINGS: 2 spinal needles are present posteriorly, directed at the L1 and L2 levels. [facility] ROBERT VALEPartha ball MD - 02/21/2024 MOBILE [...] technology. Electronically signed by Dr. Partha Cabrera [facility] CenterRadiology Study observation (narrative)[facility] HospitalXR Lumbar spine Single viewOrdered By: Partha Victor on 90-80-3565Jfq [facility] Work Phone: ecg [phone] Leadon 54-62-5343Ltveoa fibrillation, rightward axis, low voltage, PVCs, nonspecific T wave abnormality, abnormal ECGCPACSKettering Health Hamilton Work Phone: activated partial thromboplastin time (aPTT) in platelet poor plasma by coagulation aon 69-88-3030tZFU Coag (PPP) [Time] Activated partial thromboplastin time (aPTT) in platelet poor plasma by coagulation aHigh22.3-36.2FCleveland Clinic FoundationBasophils Auto (Bld) [#/Vol]on 58-53-6100Zjeqdswbu (Bld) [#/Vol]Automated basophil count0.0-0.1 [facility] Medical CenterBasophils/100 WBC Auto (Bld)on 02-14-2024 Basophils/100 WBC (Bld)Automated basophil %0.2-2.0[facility] Medical CenterEosinophils/100 WBC Auto (Bld)on 47-29-0104Zdzntehfekb/100 WBC (Bld) Automated eosinophil %0.9-7.0[facility] Medical CenterErythrocyte distribution width Auto (RBC) [Ratio]on 03-84-4275Makrfgqrhji distribution width (RBC) [Ratio]Erythrocyte distribution width [Ratio] by Automated count11.0-15.0 [facility] Medical CenterEstimated glomerular filtration rate (GFR) non- Americanon 79-16-9549EOD/1.73 sq M.predicted among non-blacks MDRD (S/P/Bld) [Vol rate/Area]Estimated glomerular filtration rate (GFR) non- AmericanLow>=60 mL/min/1.73m 2FCleveland Clinic FoundationHematocrit Auto (Bld) [Volume fraction]on 22-21-2703Bohyjcjarr (Bld) [Volume fraction]Hematocrit [Volume Fraction] of Blood by Automated fhrfvZzz64.0-54.0[facility] Medical CenterHemoglobin [Mass/volume] in Bloodon 42-61-1156Ruwovlszsz (Bld) [Mass/Vol]Hemoglobin [Mass/volume] in WlgrcNic91.0-18.0[facility] Medical CenterINR in Platelet poor plasma by Coagulation assayon 78-61-1242UNU Coag (PPP) [Relative time]INR in Platelet poor plasma by Coagulation assay [facility] Medical CenterComment on above:DESIRED INR:2.0-3.0 CONDITIONS NOT LISTED BELOW2.5-3.5 FOR PROSTHETIC HEART VALVE REPLACEMENT2.5-3.5 RECURRENT THROMBOSISLaboratory - Chemistry and Chemistry - challengeon 81-00-5174Yphagvv [Mass/Vol]9.2 mg/dL8.5-10.1FCleveland Clinic FoundationChloride [Moles/Vol] 108 mmol/LXpwe09-189WkjencczqUniversity Hospitals Ahuja Medical CenterCO2 [Moles/Vol]28.1 mmol/L 21.0-32.0[facility] Medical CenterCreatinine [Mass/Vol]1.47 mg/dLHigh 0.70-1.30[facility] CenterGFR/1.73 sq M.predicted MDRD (S/P/Bld) [Vol rate/Area]56 mL/min/{1.73_m2}Low>=60 mL/min/1.73m 2FCleveland Clinic FoundationGlucose [Mass/Vol]101 mg/kT75-371PrhebcqulUniversity Hospitals Ahuja Medical Center Potassium [Moles/Vol]4.2 mmol/L3.5-5.1FSumma Health Akron Campusodium [Moles/Vol]144 mmol/D516-965JwktpkhnaUniversity Hospitals Ahuja Medical CenterUrea nitrogen [Mass/Vol]25.0 mg/dLHigh7.0-18.0[facility] Medical CenterUrea nitrogen/Creatinine [Mass ratio]17.0 mg/mgUniversity Hospitals Ahuja Medical Center Laboratory - Hematology and Cell countson 57-69-2409Zttnhyyh granulocytes/100 WBC (Bld)0.2 %0.0-0.5FCleveland Clinic FoundationLeukocytes [#/volume] corrected for nucleated erythrocytes in Blood by Automated counon 60-37-1063ECG corrected for nucl RBC Auto (Bld) [#/Vol]Leukocytes [#/volume] corrected for nucleated erythrocytes in Blood by Automated coun4.0-11.0[facility] Medical CenterLymphocytes Auto (Bld) [#/Vol]on 04-53-3063Wdbztnjmqln (Bld) [#/Vol]Lymphocytes [#/volume] in Blood by Automated countLow1.2-3.8[facility] Medical CenterLymphocytes/100 WBC Auto (Bld)on 02-14-2024 Lymphocytes/100 WBC (Bld)Lymphocytes/100 leukocytes in Blood by Automated count Low20.5-60.0[facility] CenterH Auto (RBC) [Entitic mass]on 55-43-7932WJW (RBC) [Entitic mass]MCH [Entitic mass] by Automated countHigh 25.9-34.0[facility] CenterHC Auto (RBC) [Mass/Vol]on 98-09-0836INGV (RBC) [Mass/Vol]MCHC [Mass/volume] by Automated count29.9-35.2 [facility] CenterMCV Auto (RBC) [Entitic vol]on 73-49-4109MTZ (RBC) [Entitic vol]MCV [Entitic volume] by Automated auishApcw32.0-94.0[facility] Medical CenterMonocytes Auto (Bld) [#/Vol]on 95-70-2567Ydnlyalit (Bld) [#/Vol]Automated blood monocyte count0.3-0.8[facility] Monocytes/100 WBC Auto (Bld)on 97-44-3075Vvhalnqhq/100 WBC (Bld)Automated monocyte %1.7-12.0[facility] Medical CenterNeutrophils Auto (Bld) [#/Vol]on 97-78-1171Tdyxvefeool (Bld) [#/Vol]Neutrophils [#/volume] in Blood by Automated count1.4-6.5FCleveland Clinic FoundationNeutrophils/100 WBC Auto (Bld)on 36-15-4818Lfjdaainiiu/100 WBC (Bld)Automated neutrophil %43.0-75.0 [facility] CenterNo Panel Informationon 07-82-6512Ceivlcoeeso # (Auto)0.2 10 3/uL0.0-0.7FCleveland Clinic FoundationImmature Granulocyte # (Auto)0.01 10 3/uL0.00-0.03[facility] Medical CenterPlatelet mean volume Auto (Bld) [Entitic vol]on 17-88-8154Papnmtnw mean volume (Bld) [Entitic vol] Platelet mean volume [Entitic volume] in Blood by Automated count9.5-13.5 [facility] Medical CenterPlatelets Auto (Bld) [#/Vol]on 02-14-2024 Platelets (Bld) [#/Vol]Platelets [#/volume] in Blood by Automated dcari390-620 [facility] Medical CenterProthrombin time (PT)on 72-75-7251EG Coag (PPP) [Time]Prothrombin time (PT)High9.0-11.6FCleveland Clinic FoundationRBC Auto (Bld) [#/Vol]on 54-63-9916PKL (Bld) [#/Vol]Erythrocytes [#/volume] in Blood by Automated countLow4.70-6.10Martins Ferry Hospitalerum or plasma anion gap determinationon 36-43-0994Zryyd gap [Moles/Vol]Serum or plasma anion gap determinationUniversity Hospitals Ahuja Medical CenterAlanine aminotransferase [Enzymatic activity/volume] in Serum or PlasmaOrdered By: Opal Ga on 53-97-1178GXD [Catalytic activity/Vol]Alanine aminotransferase [Enzymatic activity/volume] in Serum or Plasma7-[facility] Medical CenterAlbumin [Mass/volume] in Serum or Plasma by Bromocresol green (BCG) dye binding metho Ordered By: Opal Ga on 34-52-4374Skxnorb BCG dye [Mass/Vol]Albumin [Mass/volume] in Serum or Plasma by Bromocresol green (BCG) dye binding metho 3.5-5.7FCleveland Clinic FoundationAlkaline phosphatase [Enzymatic activity/volume] in Serum or PlasmaOrdered By: Opal Ga on 78-26-3393IMB [Catalytic activity/Vol]Alkaline phosphatase [Enzymatic activity/volume] in Serum or VqvbwuDaiz97-123JtwojyxvdUniversity Hospitals Ahuja Medical CenterAspartate aminotransferase [Enzymatic activity/volume] in Serum or PlasmaOrdered By: Opal Ga on 33-99-9327RXM [Catalytic activity/Vol]Aspartate aminotransferase [Enzymatic activity/volume] in Serum or HzijtmVgsm73-96LfscspraeUniversity Hospitals Ahuja Medical CenterBasophils Auto (Bld) [#/Vol]Ordered By: Opal Ga on 12-30-2023 Basophils (Bld) [#/Vol]Automated basophil count0.0-0.2FCleveland Clinic FoundationBasophils/100 WBC Auto (Bld)Ordered By: Opal Ga on 12-30-2023 Basophils/100 WBC (Bld)Automated basophil %.[facility] Bilirubin.total [Mass/volume] in Serum or PlasmaOrdered By: Opal Ga on 50-07-2468Shhvltijc [Mass/Vol]Bilirubin.total [Mass/volume] in Serum or Plasma 0.3-1.0[facility] Medical CenterCalcium [Mass/volume] in Serum or Plasma Ordered By: Opal Ga on 56-30-6545Jikjcpz [Mass/Vol]Calcium [Mass/volume] in Serum or Plasma8.6-10.3FCleveland Clinic FoundationCarbon dioxide, total [Moles/volume] in Serum or PlasmaOrdered By: Opal Ga on 83-85-4780KG2 [Moles/Vol]Carbon dioxide, total [Moles/volume] in Serum or Execpy64.0-31.0 [facility] Medical CenterChloride [Moles/volume] in Serum or Plasma Ordered By: Opal Ga on 98-26-0362Bvrtzqrg [Moles/Vol]Chloride [Moles/volume] in Serum or Tbqegq53-200NopjiyqhwUniversity Hospitals Ahuja Medical CenterCreatinine [Mass/volume] in Serum or PlasmaOrdered By: Opal Ga on 67-31-1910Ivfgpxhfle [Mass/Vol]Creatinine [Mass/volume] in Serum or Plasma0.70-1.30[facility] Medical CenterEosinophils Auto (Bld) [#/Vol]Ordered By: Opal Ga on 59-41-1092Yvncchgaing (Bld) [#/Vol]Automated eosinophil count0.0-0.45[facility] Medical CenterEosinophils/100 WBC Auto (Bld)Ordered By: Opal Ga on 67-13-6237Tvuzlajxniz/100 WBC (Bld)Automated eosinophil %.[facility] Medical CenterErythrocyte distribution width Auto (RBC) [Ratio]Ordered By: Opal Ga on 73-60-7473Wfypsgygrak distribution width (RBC) [Ratio]Erythrocyte distribution width [Ratio] by Automated count12.0-14.8[facility] Medical CenterGlobulin Calc (S) [Mass/Vol]Ordered By: Opal Ga on 50-66-0804Qsdjyuen (S) [Mass/Vol]Serum globulin measurement by calculation (mass/volume)[facility] Medical CenterGlucose [Mass/volume] in Serum or PlasmaOrdered By: Opal Ga on 97-20-0211Ejehjho [Mass/Vol]Glucose [Mass/volume] in Serum or Plasma 70-100[facility] Medical CenterComment on above:ADA recommended reference rangeRandom Glucose Reference Range is dependent on time and content of last meal. Glucose of more than 200 mg/dL in a nonstressed, ambulatory subject supports the diagnosisof Diabetes Mellitus.Hematocrit Auto (Bld) [Volume fraction]Ordered By: Opal Ga on 32-42-3845Dzhdytonmi (Bld) [Volume fraction] Hematocrit [Volume Fraction] of Blood by Automated hxfbcZji88.8-50.0[facility] Medical CenterHemoglobin [Mass/volume] in BloodOrdered By: Opal Ga on 74-55-8831Oyfieabipe (Bld) [Mass/Vol]Hemoglobin [Mass/volume] in BloodLow 13.0-17.0[facility] Medical CenterLeukocytes [#/volume] corrected for nucleated erythrocytes in Blood by Automated counOrdered By: Opal Ga on 18-34-8175KFT corrected for nucl RBC Auto (Bld) [#/Vol]Leukocytes [#/volume] corrected for nucleated erythrocytes in Blood by Automated coun4.1-10.5FCleveland Clinic FoundationLymphocytes Auto (Bld) [#/Vol]Ordered By: Opal Ga on 04-46-2563Elgtmxfogyk (Bld) [#/Vol]Lymphocytes [#/volume] in Blood by Automated countLow1.00-4.8[facility] Medical CenterLymphocytes/100 WBC Auto (Bld) Ordered By: Opal Ga on 99-71-0165Gvfmtpdblib/100 WBC (Bld)Lymphocytes/100 leukocytes in Blood by Automated count.[facility]huja Medical CenterMCH Auto (RBC) [Entitic mass]Ordered By: Opal Ga on 10-40-9413IDS (RBC) [Entitic mass]MCH [Entitic mass] by Automated duyqaVcmm20.5-35.2FCleveland Clinic FoundationMCHC Auto (RBC) [Mass/Vol]Ordered By: Opal Ga on 47-63-6166FZKV (RBC) [Mass/Vol]MCHC [Mass/volume] by Automated count32.5-35.6FCleveland Clinic FoundationMCV Auto (RBC) [Entitic vol]Ordered By: Opal Ga on 10-00-9098WAN (RBC) [Entitic vol]MCV [Entitic volume] by Automated countHigh 83.5-101[facility] Medical CenterMonocytes Auto (Bld) [#/Vol]Ordered By: Opal Ga on 23-06-2778Jsavjcczs (Bld) [#/Vol]Automated blood monocyte count 0.0-0.8[facility] Medical CenterMonocytes/100 WBC Auto (Bld)Ordered By: Opal Ga on 80-26-9529Kusiuqgag/100 WBC (Bld)Automated monocyte %.[facility] Medical CenterNeutrophils Auto (Bld) [#/Vol]Ordered By: Opal Ga on 35-95-3074Iwrkxncqxdm (Bld) [#/Vol]Neutrophils [#/volume] in Blood by Automated count1.8-7.7FCleveland Clinic FoundationNeutrophils/100 WBC Auto (Bld) Ordered By: Opal Ga on 72-10-8607Tijhwyosxse/100 WBC (Bld)Automated neutrophil %.[facility] CenterNo Panel InformationOrdered By: Opal Ga on 09-42-4001Ktgnpjvkm GFR (CKD-EPI)> 60.0 mL/MinUniversity Hospitals Ahuja Medical CenterPharmacy Creatinine Clearance (ChemN/[facility] Hospital at SouthwoodsNucleated erythrocytes [Presence] in Blood by Automated countOrdered By: Opal Ga on 30-76-0489Dajvbrpsp RBC Auto Ql (Bld)Nucleated erythrocytes [Presence] in Blood by Automated count0-0.5FC[facility] Clinic Foundation Platelet mean volume Auto (Bld) [Entitic vol]Ordered By: Opal Ga on 48-82-9968Tultvafb mean volume (Bld) [Entitic vol]Platelet mean volume [Entitic volume] in Blood by Automated count6.6-10.1FC[facility] Foundation Platelets Auto (Bld) [#/Vol]Ordered By: Opal Ga on 46-98-6418Rqthqjtdw (Bld) [#/Vol]Platelets [#/volume] in Blood by Automated ficgn864-421AqqrnnlkmUniversity Hospitals Ahuja Medical CenterPotassium [Moles/volume] in Serum or PlasmaOrdered By: Opal Ga on 87-54-5262Heeyawaxc [Moles/Vol]Potassium [Moles/volume] in Serum or Plasma 3.5-5.1FCleveland Clinic FoundationProtein [Mass/volume] in Serum or Plasma Ordered By: Opal Ga on 33-95-5105Pjboeku [Mass/Vol]Protein [Mass/volume] in Serum or PlasmaLow6.4-8.9[facility] Medical CenterRBC Auto (Bld) [#/Vol] Ordered By: Opal Ga on 29-67-8805ZCF (Bld) [#/Vol]Erythrocytes [#/volume] in Blood by Automated countLow3.90-5.60[facility] Hospitalerum or plasma albumin/globulin mass ratioOrdered By: Opal Ga on 12-30-2023 Albumin/Globulin [Mass ratio]Serum or plasma albumin/globulin mass ratio [facility] Hospitalerum or plasma anion gap determinationOrdered By: Opal Ga on 76-55-2342Qwbxi gap [Moles/Vol]Serum or plasma anion gap determination6.0-15.0[facility] Hospitalodium [Moles/volume] in Serum or PlasmaOrdered By: Opal Ga on 87-46-9341Wfdfxd [Moles/Vol]Sodium [Moles/volume] in Serum or Hnlohi145-413KdglgudfgUniversity Hospitals Ahuja [facility] Center Thyrotropin [Units/volume] in Serum or PlasmaOrdered By: Opal Ga on 93-66-4261NBG QnThyrotropin [Units/volume] in Serum or PlasmaLow0.45-5.33 [facility] CenterThyroxine (T4) free [Mass/volume] in Serum or PlasmaOrdered By: Opal Ga on 74-32-5903Unib T4 [Mass/Vol]Thyroxine (T4) free [Mass/volume] in Serum or PlasmaHigh0.61-1.12[facility] Urea nitrogen [Mass/volume] in Serum or PlasmaOrdered By: Opla Ga on 67-27-2732Bqjs nitrogen [Mass/Vol]Urea nitrogen [Mass/volume] in Serum or Plasma 09-28[facility] CenterWBC Auto (Bld) [#/Vol]Ordered By: Opal Ga on 76-61-0779SSD (Bld) [#/Vol]Leukocytes [#/volume] in Blood by Automated count4.1-10.5FCleveland Clinic FoundationAlanine aminotransferase [Enzymatic activity/volume] in Serum or PlasmaOrdered By: Opal Ga on 06-14-7547WAL [Catalytic activity/Vol]18 U/L7-52[facility] CenterAlbumin [Mass/volume] in Serum or Plasma by Bromocresol green (BCG) dye binding methoOrdered By: Opal Ga on 35-52-3338Vmdlast BCG dye [Mass/Vol]4.1 g/dL3.5-5.7FCleveland Clinic FoundationAlkaline phosphatase [Enzymatic activity/volume] in Serum or PlasmaOrdered By: Opal Ga on 82-37-4994SCX [Catalytic activity/Vol]117 U/WRnsv25-792FrccnhijsUniversity Hospitals Ahuja Medical Center Aspartate aminotransferase [Enzymatic activity/volume] in Serum or PlasmaOrdered By: Opal Ga on 41-75-5992NQB [Catalytic activity/Vol]29 U/I78-37OwzkfksirUniversity Hospitals Ahuja Medical CenterBasophils Auto (Bld) [#/Vol]Ordered By: Opal Ga on 51-24-9040Orostzouk (Bld) [#/Vol]0.0 10*3/uL0.0-0.2FC[facility] Clinic FoundationBasophils/100 WBC Auto (Bld)Ordered By: Opal Ga on 09-12-2023 Basophils/100 WBC (Bld)0.8 %.[facility] Medical CenterBilirubin.total [Mass/volume] in Serum or PlasmaOrdered By: Opal Ga on 63-35-8297Cypdoezzq [Mass/Vol]0.7 mg/dL0.3-1.0[facility] CenterCalcium [Mass/volume] in Serum or PlasmaOrdered By: Opal Ga on 61-07-8113Vmxtvjp [Mass/Vol]9.7 mg/dL8.6-10.3FCleveland Clinic FoundationCarbon dioxide, total [Moles/volume] in Serum or PlasmaOrdered By: Opal Ga on 36-25-9768TB1 [Moles/Vol]30.3 mmol/L21.0-31.0[facility] CenterChloride [Moles/volume] in Serum or PlasmaOrdered By: Opal Ga on 58-54-3664Zpbycvzh [Moles/Vol]105 mmol/P32-152IildzoqecUniversity Hospitals Ahuja Medical CenterCholesterol [Mass/volume] in Serum or PlasmaOrdered By: Opal Ga on 59-09-6723Pxfvuydaots [Mass/Vol]135 mg/lFDpi758-759CcpwmpykdUniversity Hospitals Ahuja Medical CenterComment on above: Chol less than 200 mg/dl low riskChol 201-239 mg/dl borderline riskChol 240 mg/dl and greater high riskCholesterol in LDL Calc [Mass/Vol]Ordered By: Opal Ga on 53-38-3325Pessbmgfkma in LDL [Mass/Vol]43 mg/dL0-100[facility] CenterComment on above:LDL ATP III CLASSIFICATIONLDL less than 100 mg/dL OptimalLDL 100-129 mg/dL Near or above brjpzunIEP051-516 mg/dL Borderline highLDL 160-189 mg/dL HighLDL greater than 189 mg/dL Very highCholesterol in VLDL Calc [Mass/Vol]Ordered By: Opal Ga on 07-90-4436Wrtceaxpbgy in VLDL [Mass/Vol]10 mg/dLUniversity Hospitals Ahuja Medical CenterCreatinine [Mass/volume] in Serum or PlasmaOrdered By: Opal Ga on 96-46-9127Llldamzayc [Mass/Vol]1.19 mg/dL0.70-1.30[facility] CenterEosinophils Auto (Bld) [#/Vol] Ordered By: Opal Ga on 71-98-7278Loauogfvaym (Bld) [#/Vol]0.5 10*3/uLHigh 0.0-0.45[facility] CenterEosinophils/100 WBC Auto (Bld)Ordered By: Opal Ga on 43-98-8487Wadlcboredq/100 WBC (Bld)10.7 %.[facility] Medical CenterErythrocyte distribution width Auto (RBC) [Ratio]Ordered By: Opal Ga on 06-97-6210Unaxnmqbygw distribution width (RBC) [Ratio]13.9 %12.0-14.8 [facility] Medical CenterGlobulin Calc (S) [Mass/Vol]Ordered By: Opal Ga on 94-63-5481Mhvtspbo (S) [Mass/Vol]2.3 g/dLUniversity Hospitals Ahuja Medical CenterGlucose [Mass/volume] in Serum or PlasmaOrdered By: Opal Ga on 19-56-5846Xbrtpnv [Mass/Vol]85 mg/oS12-084KgsmbqjgkUniversity Hospitals Ahuja Medical Center Comment on above:ADA recommended reference rangeRandom Glucose Reference Range is dependent on time and content of last meal. Glucose of more than 200 mg/dL in a nonstressed, ambulatory subject supports the diagnosisof Diabetes Mellitus. Hematocrit Auto (Bld) [Volume fraction]Ordered By: Opal Ga on 09-12-2023 Hematocrit (Bld) [Volume fraction]39.6 %38.8-50.0[facility] Medical CenterHemoglobin [Mass/volume] in BloodOrdered By: Opal Ga on 09-12-2023 Hemoglobin (Bld) [Mass/Vol]13.1 g/dL13.0-17.0[facility] Leukocytes [#/volume] corrected for nucleated erythrocytes in Blood by Automated counOrdered By: Opal Ga on 17-46-6565CQN corrected for nucl RBC Auto (Bld) [#/Vol]5.0 10*3/uL4.1-10.5FCleveland Clinic FoundationLymphocytes Auto (Bld) [#/Vol]Ordered By: Opal Ga on 44-56-3440Cvyphzymbsj (Bld) [#/Vol]1.4 10*3/uL1.00-4.8[facility] Medical CenterLymphocytes/100 WBC Auto (Bld) Ordered By: Opal Ga on 56-68-7900Jdtxjpepjwa/100 WBC (Bld)27.8 %.[facility] CenterH Auto (RBC) [Entitic mass]Ordered By: Opal Ga on 20-13-2854NOT (RBC) [Entitic mass]35.2 pg27.5-35.2FCleveland Clinic FoundationMCHC Auto (RBC) [Mass/Vol]Ordered By: Opal Ga on 40-45-5463DHQF (RBC) [Mass/Vol]33.1 g/dL32.5-35.6FCleveland Clinic FoundationMCV Auto (RBC) [Entitic vol]Ordered By: Opal Ga on 12-81-0808LGG (RBC) [Entitic vol]106.3 fL High83.5-101[facility] CenterMonocytes Auto (Bld) [#/Vol]Ordered By: Opal Ga on 26-92-8962Oszxhahai (Bld) [#/Vol]0.5 10*3/uL0.0-0.8[facility] CenterMonocytes/100 WBC Auto (Bld)Ordered By: Opal Ga on 18-72-9741Bvaymjouc/100 WBC (Bld)9.7 %.[facility] Neutrophils Auto (Bld) [#/Vol]Ordered By: Opal Ga on 77-17-0906Sdjlpxtvdtq (Bld) [#/Vol]2.6 10*3/uL1.8-7.7FCleveland Clinic FoundationNeutrophils/100 WBC Auto (Bld)Ordered By: Opal Ga on 11-62-7133Lluhxplzaeu/100 WBC (Bld)51.0 %.[facility] CenterNo Panel InformationOrdered By: Opal Ga on 35-07-4974Unomzthzb GFR (CKD-EPI)> 60.0 mL/MinUniversity Hospitals Ahuja Medical Center Pharmacy Creatinine Clearance (ChemN/AFCleveland Clinic FoundationNucleated erythrocytes [Presence] in Blood by Automated countOrdered By: Opal Ga on 05-97-3255Lqepietwj RBC Auto Ql (Bld)0.1 /100{WBC}0-0.5FCleveland Clinic FoundationPlatelet mean volume Auto (Bld) [Entitic vol]Ordered By: Opal Ga on 50-41-0799Qfzufxtt mean volume (Bld) [Entitic vol]8.6 fL6.6-10.1 [facility] Medical CenterPlatelets Auto (Bld) [#/Vol]Ordered By: Opal Ga on 20-65-8906Icpxehvsr (Bld) [#/Vol]163 10*3/bS203-468YukeyfpluUniversity Hospitals Ahuja Medical CenterPotassium [Moles/volume] in Serum or PlasmaOrdered By: Opal Ga on 46-95-4864Ilcdfvtlb [Moles/Vol]4.0 mmol/L3.5-5.1FCleveland Clinic FoundationProstate specific Ag [Mass/volume] in Serum or PlasmaOrdered By: Opal Ga on 67-52-8534Ztosdpfb specific Ag [Mass/Vol]2.430 ng/mL0.000-4.000[facility] CenterComment on above:Serial tumor marker results determined by assays using different manufacturers or methods may not be comparable.[facility] Laboratory document processing specialist and method:[employer] DXI, CHEMILUMINESCENT IMMUNOASSAY.Protein [Mass/volume] in Serum or PlasmaOrdered By: Opal Ga on 03-56-0031Ywnodqv [Mass/Vol]6.4 g/dL6.4-8.9[facility] Medical CenterRBC Auto (Bld) [#/Vol]Ordered By: Opal Ga on 53-93-6922ORN (Bld) [#/Vol]3.73 10*6/uLLow3.90-5.60[facility] Hospitalerum or plasma albumin/globulin mass ratioOrdered By: Opal Ga on 09-12-2023 Albumin/Globulin [Mass ratio]1.8 {ratio}[facility] Hospitalerum or plasma anion gap determinationOrdered By: Opal Ga on 40-78-2228Niqgt gap [Moles/Vol]9.7 mmol/L6.0-15.0[facility] Hospitalerum or plasma high density lipoprotein (HDL) cholesterol measurementOrdered By: Opal Ga on 54-29-0173Gvgzfaskmxi in HDL [Mass/Vol]81 mg/pZ79-60ZapyyxsewUniversity Hospitals Ahuja Medical CenterComment on above:HDL CHOL ATP-III CLASSIFICATION Cardiovascular RiskHDL > or equal to 60 mg/dL LOWHDL < 40 mg/dL HIGHSerum or plasma total cholesterol/high density lipoprotein (HDL) cholesterol mass ratOrdered By: Opal Ga on 48-92-0762Krthbrtkiqp.total/Cholesterol in HDL [Mass ratio]1.7 {ratio} <5.0[facility] Hospitalodium [Moles/volume] in Serum or Plasma Ordered By: Opal Ga on 24-85-1170Wavljn [Moles/Vol]141 mmol/W987-930IgtqusjixUniversity Hospitals Ahuja Medical CenterThyrotropin [Units/volume] in Serum or PlasmaOrdered By: Opal Ga on 87-26-0629HQA Qn0.19 m[IU]/LLow0.45-5.33[facility] Medical CenterThyroxine (T4) free [Mass/volume] in Serum or PlasmaOrdered By: Opal Ga on 18-86-5253Dzya T4 [Mass/Vol]1.24 ng/dLHigh0.61-1.12[facility] Medical CenterTriglyceride [Mass/volume] in Serum or PlasmaOrdered By: Opal Ga on 63-54-1568Qndshmypsrnh [Mass/Vol]53 mg/dL0-149[facility] Medical CenterComment on above:TRIG ATP III CLASSIFICATIONTRIG less than 150 mg/dL NormalTRIG 150-199 mg/dL Borderline highTRIG 200-500 mg/dL High TRIG greater than 500 mg/dL Very highStandard traceable to the Center for Disease Co nrtrol and Prevention (CDC) test method.Urea nitrogen [Mass/volume] in Serum or PlasmaOrdered By: Opal Ga on 54-84-3389Itsh nitrogen [Mass/Vol]26 mg/dLHigh 7-25[facility] CenterWBC Auto (Bld) [#/Vol]Ordered By: Opal Ga on 08-91-1351YDC (Bld) [#/Vol]5.0 10*3/uL4.1-10.5FCleveland Clinic FoundationAlanine aminotransferase [Enzymatic activity/volume] in Serum or Plasma Ordered By: Bhupinder Mcintyre on 99-16-6807ZWN [Catalytic activity/Vol]37 U/L7-52 [facility] Medical CenterAspartate aminotransferase [Enzymatic activity/volume] in Serum or PlasmaOrdered By: Bhupinder Mcintyre on 45-58-3750FSK [Catalytic activity/Vol]66 U/SLbob37-97UkjodrnayUniversity Hospitals Ahuja Medical CenterCalcium [Mass/volume] in Serum or PlasmaOrdered By: Bhupinder Mcintyre on 92-80-8574Njwgolp [Mass/Vol]9.8 mg/dL8.6-10.3FC[facility] Clinic FoundationCarbon dioxide, total [Moles/volume] in Serum or PlasmaOrdered By: Bhupinder Mcintyre on 56-44-1366HA1 [Moles/Vol]27.1 mmol/L21.0-31.0[facility] Medical CenterChloride [Moles/volume] in Serum or PlasmaOrdered By: Bhupinder Mcintyre on 71-41-7574Ktzmwvuc [Moles/Vol]104 mmol/W30-741CwdbgbedkUniversity Hospitals Ahuja Medical CenterCholesterol [Mass/volume] in Serum or PlasmaOrdered By: Bhupinder Mcintyre on 36-47-9351Mlmfrapaank [Mass/Vol]152 mg/hJ688-803EqhociyncUniversity Hospitals Ahuja Medical CenterComment on above:Chol less than 200 mg/dl low riskChol 201-239 mg/dl borderline riskChol 240 mg/dl and greater high riskCholesterol in LDL Calc [Mass/Vol]Ordered By: Bhupinder Mcintyre on 56-77-1521Itdwushwgzj in LDL [Mass/Vol]49 mg/dL0-100[facility] Medical CenterComment on above:LDL ATP III CLASSIFICATIONLDL less than 100 mg/dL OptimalLDL 100-129 mg/dL Near or above bixhsdwVHD589-891 mg/dL Borderline highLDL 160-189 mg/dL HighLDL greater than 189 mg/dL Very highCholesterol in VLDL Calc [Mass/Vol]Ordered By: Bhupinder Mcintyre on 35-98-1669Cecyobgryfi in VLDL [Mass/Vol]17 mg/dLUniversity Hospitals Ahuja Medical CenterCreatinine [Mass/volume] in Serum or PlasmaOrdered By: Bhupinder Mcintyre on 73-91-7899Xvrhrokzya [Mass/Vol]1.14 mg/dL0.70-1.30[facility] Medical CenterGlucose [Mass/volume] in Serum or PlasmaOrdered By: Bhupinder Mcintyre on 05-52-1047Jekvmzv [Mass/Vol]83 mg/kG71-577 [facility] Medical CenterComment on above:ADA recommended reference rangeRandom Glucose Reference Range is dependent on time and content of last meal. Glucose of more than 200 mg/dL in a nonstressed, ambulatory subject supports the diagnosisof Diabetes Mellitus.Natriuretic peptide B [Mass/Vol] Ordered By: Bhupinder Mcintyre on 41-69-2947Ktwczzkzhzi peptide B (Bld) [Mass/Vol]347.0 pg/mLHigh5-100[facility] CenterNo Panel InformationOrdered By: Bhupinder Mcintyre on 48-27-2367Pzrvdgcuk GFR (CKD-EPI)> 60.0 mL/MinUniversity Hospitals Ahuja Medical CenterPharmacy Creatinine Clearance (ChemN/[facility] at SouthwoodsPotassium [Moles/volume] in Serum or PlasmaOrdered By: Bhupinder Mcintyre on 77-26-5223Hzaaiuert [Moles/Vol]4.2 mmol/L3.5-5.1FSumma Health Akron Campuserum or plasma anion gap determinationOrdered By: Bhupinder Mcintyre on 07-19-2023 Anion gap [Moles/Vol]14.1 mmol/L6.0-15.0[facility] Hospitalerum or plasma high density lipoprotein (HDL) cholesterol measurementOrdered By: Bhupinder Mcintyre on 98-54-9389Fvapovpminf in HDL [Mass/Vol]86 mg/zD64-37YptykyugmUniversity Hospitals Ahuja Medical CenterComment on above:HDL CHOL ATP-III CLASSIFICATION Cardiovascular RiskHDL > or equal to 60 mg/dL LOWHDL < 40 mg/dL HIGHSerum or plasma total cholesterol/high density lipoprotein (HDL) cholesterol mass rat Ordered By: Bhupinder Mcintyre on 60-19-8634Qkgfzhrbgwj.total/Cholesterol in HDL [Mass ratio]1.8 {ratio}<5.0[facility] Hospitalodium [Moles/volume] in Serum or PlasmaOrdered By: Bhupinder Mcintyre on 14-32-2133Qlxjco [Moles/Vol]141 mmol/L 136-145[facility] Medical CenterTriglyceride [Mass/volume] in Serum or PlasmaOrdered By: Bhupinder Mcintyre on 01-70-3525Rnmsharqsidi [Mass/Vol]85 mg/dL0-149 [facility] Medical CenterComment on above:TRIG ATP III CLASSIFICATIONTRIG less than 150 mg/dL NormalTRIG 150-199 mg/dL Borderline highTRIG 200-500 mg/dL High TRIG greater than 500 mg/dL Very highStandard traceable to the Center for Disease Conrtrol and Prevention (CDC) test method. Urea nitrogen [Mass/volume] in Serum or PlasmaOrdered By: Bhupinder Mcintyre on 88-83-5224Buyu nitrogen [Mass/Vol]22 mg/dL7-25[facility] Alanine aminotransferase [Enzymatic activity/volume] in Serum or PlasmaOrdered By: Opal Ga on 37-13-5815KRK [Catalytic activity/Vol]31 U/L7-52[facility] Medical CenterAlbumin [Mass/volume] in Serum or Plasma by Bromocresol green (BCG) dye binding methoOrdered By: Opal Ga on 42-37-8880Fjrtfyh BCG dye [Mass/Vol]4.1 g/dL3.5-5.7FCleveland Clinic FoundationAlkaline phosphatase [Enzymatic activity/volume] in Serum or PlasmaOrdered By: Opal Ga on 73-35-3941WCW [Catalytic activity/Vol]124 U/C90-109AeialjdaiUniversity Hospitals Ahuja Medical CenterAspartate aminotransferase [Enzymatic activity/volume] in Serum or Plasma Ordered By: Opal Ga on 54-13-1507QPK [Catalytic activity/Vol]47 U/L13-39 [facility] Medical CenterBasophils Auto (Bld) [#/Vol]Ordered By: Opal Ga on 86-72-7854Rzzaahrkg (Bld) [#/Vol]0.0 10*3/uL0.0-0.2FCleveland Clinic FoundationBasophils/100 WBC Auto (Bld)Ordered By: Opal Ga on 09-08-2022 Basophils/100 WBC (Bld)1.0 %.[facility] Medical CenterBilirubin.total [Mass/volume] in Serum or PlasmaOrdered By: Opal Ga on 98-26-6742Umezioxbh [Mass/Vol]0.7 mg/dL0.3-1.0[facility] Medical CenterCalcium [Mass/volume] in Serum or PlasmaOrdered By: Opal Ga on 27-68-2644Onrnone [Mass/Vol]9.5 mg/dL8.6-10.3FCleveland Clinic FoundationCarbon dioxide, total [Moles/volume] in Serum or PlasmaOrdered By: Opal Ga on 88-81-1153DM4 [Moles/Vol]30.7 mmol/L21.0-31.0[facility] Medical CenterChloride [Moles/volume] in Serum or PlasmaOrdered By: Opal Ga on 59-16-7214Boeylruo [Moles/Vol]107 mmol/P43-977LvnpqplauUniversity Hospitals Ahuja Medical CenterCholesterol [Mass/volume] in Serum or PlasmaOrdered By: Opal Ga on 93-21-6873Chmuggzdvbh [Mass/Vol]124 mg/vX270-000YubykjnzhUniversity Hospitals Ahuja Medical CenterComment on above:Chol less than 200 mg/dl low riskChol 201-239 mg/dl borderline riskChol 240 mg/dl and greater high riskCholesterol in LDL Calc [Mass/Vol]Ordered By: Opal Ga on 74-89-3920Txvnmktwfty in LDL [Mass/Vol]44 mg/dL0-100[facility] Medical CenterComment on above:LDL ATP III CLASSIFICATIONLDL less than 100 mg/dL OptimalLDL 100-129 mg/dL Near or above gohnwecVUO194-266 mg/dL Borderline highLDL 160-189 mg/dL HighLDL greater than 189 mg/dL Very highCholesterol in VLDL Calc [Mass/Vol]Ordered By: Opal Ga on 29-49-4539Bavmawginaf in VLDL [Mass/Vol]13 mg/dLUniversity Hospitals Ahuja Medical CenterCreatinine [Mass/volume] in Serum or PlasmaOrdered By: Opal Ga on 30-05-0715Lrbasugsbg [Mass/Vol]1.18 mg/dL0.70-1.30[facility] Medical CenterEosinophils Auto (Bld) [#/Vol] Ordered By: Opal Ga on 83-25-0321Eprlmgermhp (Bld) [#/Vol]0.8 10*3/uL0.0-0.45 [facility] CenterEosinophils/100 WBC Auto (Bld)Ordered By: Opal Ga on 86-22-2704Dkpswofoujj/100 WBC (Bld)16.6 %.[facility] Medical CenterErythrocyte distribution width Auto (RBC) [Ratio]Ordered By: Opal Ga on 67-76-4689Tyfdgwspkfe distribution width (RBC) [Ratio]14.9 %12.0-14.8[facility] Medical CenterGlobulin Calc (S) [Mass/Vol]Ordered By: Opal Ga on 16-58-0953Ybmdwwvp (S) [Mass/Vol]2.2 g/dLUniversity Hospitals Ahuja Medical Center Glucose [Mass/volume] in Serum or PlasmaOrdered By: Opal Ga on 09-08-2022 Glucose [Mass/Vol]83 mg/eJ08-431TqkiqzveyUniversity Hospitals Ahuja Medical CenterComment on above:ADA recommended reference rangeRandom Glucose Reference Range is dependent on time and content of last meal. Glucose of more than 200 mg/dL in a nonstressed, ambulatory subject supports the diagnosisof Diabetes Mellitus. Hematocrit Auto (Bld) [Volume fraction]Ordered By: Opal Ga on 09-08-2022 Hematocrit (Bld) [Volume fraction]37.1 %38.8-50.0[facility] Medical CenterHemoglobin [Mass/volume] in BloodOrdered By: Oapl Ga on 09-08-2022 Hemoglobin (Bld) [Mass/Vol]12.5 g/dL13.0-17.0[facility] Leukocytes [#/volume] corrected for nucleated erythrocytes in Blood by Automated counOrdered By: pOal Ga on 17-78-7094UHD corrected for nucl RBC Auto (Bld) [#/Vol]4.7 10*3/uL4.1-10.5FCleveland Clinic FoundationLymphocytes Auto (Bld) [#/Vol]Ordered By: Opal Ga on 17-51-7731Yfuaqkbrlnw (Bld) [#/Vol]1.3 10*3/uL1.00-4.8[facility] Medical CenterLymphocytes/100 WBC Auto (Bld) Ordered By: Opal Ga on 14-40-9852Gcqefqnwqmf/100 WBC (Bld)27.0 %.[facility] Medical CenterMCH Auto (RBC) [Entitic mass]Ordered By: Opal Ga on 00-18-4842XTO (RBC) [Entitic mass]33.5 pg27.5-35.2FCleveland Clinic FoundationMCHC Auto (RBC) [Mass/Vol]Ordered By: Opal Ga on 35-25-6132QLSF (RBC) [Mass/Vol]33.6 g/dL32.5-35.6FCleveland Clinic FoundationMCV Auto (RBC) [Entitic vol]Ordered By: Opal Ga on 75-59-2366NUL (RBC) [Entitic vol]99.7 fL 83.5-101[facility] CenterMonocytes Auto (Bld) [#/Vol]Ordered By: Opal Ga on 08-93-3199Gpuskfkca (Bld) [#/Vol]0.3 10*3/uL0.0-0.8[facility] CenterMonocytes/100 WBC Auto (Bld)Ordered By: Opal Ga on 58-24-8193Cqfjkrcob/100 WBC (Bld)7.2 %.[facility] Natriuretic peptide B [Mass/Vol]Ordered By: Bhupinder Mcintyre on 69-01-5694Jdpamnmhjzo peptide B (Bld) [Mass/Vol]123.0 pg/mL5-100[facility] Neutrophils Auto (Bld) [#/Vol]Ordered By: Opal Ga on 41-99-7397Pntyjgidvvk (Bld) [#/Vol]2.2 10*3/uL1.8-7.7FCleveland Clinic FoundationNeutrophils/100 WBC Auto (Bld)Ordered By: Opal Ga on 72-42-1798Uuzbdowtnxd/100 WBC (Bld)48.2 %.[facility] CenterNo Panel Informationon 09-08-2022 123.0\S\123.0above high -308[facility] [address] DO Work Phone: Comment on above:PERFORMED BY:[facility] [place], [place] [id number] MEDICAL DIRECTORJAYY SANTA M.D.No Panel InformationOrdered By: Opal Ga on 09-08-2022 Estimated GFR (CKD-EPI)> 60.0 mL/MinUniversity Hospitals Ahuja Medical CenterPharmacy Creatinine Clearance (ChemN/AFCleveland Clinic FoundationNucleated erythrocytes [Presence] in Blood by Automated countOrdered By: Opal Ga on 36-15-7733Kqxpsinqe RBC Auto Ql (Bld)0.2 /100{WBC}0-0.5FCleveland Clinic FoundationPlatelet mean volume Auto (Bld) [Entitic vol]Ordered By: Opal Ga on 81-39-1456Oexuibaf mean volume (Bld) [Entitic vol]8.8 fL6.6-10.1 [facility] Medical CenterPlatelets Auto (Bld) [#/Vol]Ordered By: Opal Ga on 57-73-1490Eoxhhjndi (Bld) [#/Vol]155 10*3/aN945-893XffmdsavlUniversity Hospitals Ahuja Medical CenterPotassium [Moles/volume] in Serum or PlasmaOrdered By: Opal Ga on 44-01-8347Aemqralux [Moles/Vol]4.0 mmol/L3.5-5.1FCleveland Clinic FoundationProstate specific Ag [Mass/volume] in Serum or PlasmaOrdered By: Opal Ga on 09-92-7649Buwjntqd specific Ag [Mass/Vol]2.140 ng/mL0.000-4.000[facility] CenterProtein [Mass/volume] in Serum or PlasmaOrdered By: Opal Ga on 91-21-4059Uvtxtwk [Mass/Vol]6.3 g/dL6.4-8.9[facility] Medical CenterRBC Auto (Bld) [#/Vol]Ordered By: Opal Ga on 25-04-7173BZW (Bld) [#/Vol]3.73 10*6/uL3.90-5.60[facility] Hospitalerum or plasma albumin/globulin mass ratioOrdered By: Opal Ga on 09-08-2022 Albumin/Globulin [Mass ratio]1.9 {ratio}[facility] Hospitalerum or plasma anion gap determinationOrdered By: Opal Ga on 53-71-5257Snzea gap [Moles/Vol]8.3 mmol/L6.0-15.0[facility] Hospitalerum or plasma high density lipoprotein (HDL) cholesterol measurementOrdered By: Opal Ga on 38-59-8876Ovlbbekcwdn in HDL [Mass/Vol]67 mg/pE92-20JltwkymuuUniversity Hospitals Ahuja Medical CenterComment on above:HDL CHOL ATP-III CLASSIFICATION Cardiovascular RiskHDL > or equal to 60 mg/dL LOWHDL < 40 mg/dL HIGHSerum or plasma total cholesterol/high density lipoprotein (HDL) cholesterol mass ratOrdered By: Opal Ga on 20-83-2651Neympaammpx.total/Cholesterol in HDL [Mass ratio]1.9 {ratio} <5.0[facility]erry Hospitalodium [Moles/volume] in Serum or Plasma Ordered By: Opal Ga on 77-88-7124Xkyscr [Moles/Vol]142 mmol/A896-989LsqboxmlgUniversity Hospitals Ahuja Medical CenterThyrotropin [Units/volume] in Serum or PlasmaOrdered By: Opal Ga on 49-36-0047JBT Qn0.46 m[IU]/L0.45-5.33[facility] Medical CenterThyroxine (T4) free [Mass/volume] in Serum or PlasmaOrdered By: Opal Ga on 83-26-6800Zjfz T4 [Mass/Vol]1.28 ng/dL0.61-1.12[facility] Medical CenterTriglyceride [Mass/volume] in Serum or PlasmaOrdered By: Opal Ga on 79-13-5439Csuutyxorgmm [Mass/Vol]66 mg/dL0-149[facility] Comment on above:TRIG ATP III CLASSIFICATIONTRIG less than 150 mg/dL NormalTRIG 150-199 mg/dL Borderline highTRIG 200-500 mg/dL High TRIG greater than 500 mg/dL Very highStandard traceable to the Center for Disease Conrtrol and Prevention (CDC) test method.Urea nitrogen [Mass/volume] in Serum or PlasmaOrdered By: Opal Ga on 54-97-3211Vklb nitrogen [Mass/Vol]22 mg/dL7[facility] CenterWBC Auto (Bld) [#/Vol]Ordered By: Opal Ga on 24-33-1557JRZ (Bld) [#/Vol]4.7 10*3/uL4.1-10.5FCleveland Clinic FoundationOffice Visit (Cardiology)on 48-78-5234Qxqqpi-up visitDiagnoses/Problems Assessed Heart failure, NYHA class 2 [...] of Cardiac catheterization History of Complete colonoscopy [facility] History of Epidural steroid injection History of [...] (more content not included)...NormalUH TouchworksTobacco Screening. on 33-34-8667Fsrothl use status CPHSb) [facility] 250 DO Work Phone: US KIDNEYS BLADDERon [phone] KIDNEYS BLADDEREXAM: US KIDNEYS BLADDER 05/13/2022 HISTORY: [...] Electronically authenticated by: RONALD ISRAEL Date: 2022-05-13 09:51[facility] CenterCardiovasc Arrhythmia Resultson 15-54-0020Eegqdnubdz Arrhythmia ResultsReason For Visit Reason for Visit: Holter Monitor: TAVO is here for the application of a 24 hour Holter monitor. Ordering Physician: Enedelia Aguillon NP Diagnosis: afib NO equipment agreement signed. TAVO understands monitor is to be returned on: 03/16/2022 Monitor number [id number] applied. Holter monitor printed and placed on [...] Future Appointments Date/TimeProviderSpecialtySite 07/07/2022 09:20 Tavo Link, [id number] [facility] [address] 250 DO Signatures Electronically signed by : Marv Urena MD; Mar 19 2022 6:25PM EST (Author) Electronically signed by : Enedelia Gomez APRN-CREAM GATHERER; Mar 22 2022 9:37AM EST (Author)NormalUH TouchworksCreatinine and Glomerular filtration rate.predicted panel (S/P/Bld)Ordered By: Enedelia Gomez on 89-01-0959Imbpihedmt [Mass/Vol]1.28 mg/dL0.64-1.27[facility]huja Medical CenterEstimated glomerular filtration rate (GFR) non- AmericanOrdered By: Enedelia Gomez on 36-99-4013XNO/1.73 sq M.predicted among non-blacks MDRD (S/P/Bld) [Vol rate/Area]54 mL/MinUniversity Hospitals Ahuja Medical CenterNo Panel InformationOrdered By: Enedelia Gomez on 03-11-2022 Estimated GFR ()> 60 mL/MinUniversity Hospitals Ahuja Medical Center Comment on above:GFR estimated reference range: According to KDOQI guidelines, <60 ml/min/1.73m2 is sufficient todiagnose a patient with chronic kidney disease.Pharmacy Creatinine Clearance (ChemN/[facility] No Panel Informationon .1\S\10.0Msojhf8.0-15.0MP-[facility] [place] 250 DO Work Phone: [phone]\S\9.0Useifw2.2-10.2MP-[facility] 250 DO Work Phone: Comment on above:PERFORMED BY:[place] [address] [place], [place] [phone] MEDICAL DIRECTORJAYY SANTA M.D.30.5\S\30.5above high sidbmxbqd60.0-30.0MP-[facility] 250 DO Work Phone: [phone]\S\518Knkkld33-884SO-Llnaq [place] [facility] 250 DO Work Phone: [phone]\S\3.4Xevhdn2.5-5.1MP-[facility] 250 DO Work Phone: [phone]\S\368Hkpyyh013-923SJ-Hoour [place] [facility] 250 DO Work Phone: > 60NormalMP-[facility] 250 DO Work Phone: Comment on above:GFR estimated reference range: According to KDOQI guidelines, <60 ml/min/1.73m2 is sufficient todiagnose a patient with chronic kidney disease.54\S\54NormalMP-[facility] 250 DO Work Phone: [phone]\S\1.28above high threshold0.64-1.27MP-[facility] 250 DO Work Phone: [phone]\S\53Lzwydz5-52XM-Ylusm [place] [facility] 250 DO Work Phone: [phone]\S\10Qtbipg10-786EF-Gabag [place] [facility] 250 DO Work Phone: Comment on above:Random Glucose Reference Range is dependent on time and content of last meal. Glucose of more than 200 mg/dL in a nonstressed, ambulatory subject supports the diagnosis of Diabetes Mellitus. ADA recommended reference rangeSerum or plasma anion gap determinationOrdered By: Enedelia Gomez on 46-34-9512Qryov gap [Moles/Vol]10.1 mmol/L6.0-15.0[facility] Ferry Hospitalerum or plasma calcium measurement (mass/volume)Ordered By: Enedelia Gomez on 00-29-6456Aahicpg [Mass/Vol]9.9 mg/dL8.2-10.2FSumma Health Akron Campuserum or plasma chloride measurement (moles/volume) Ordered By: Enedelia Gomez on 03-58-7907Orjuovlk [Moles/Vol]100 mmol/L95-114 [facility]erry Hospitalerum or plasma glucose measurement (mass/volume)Ordered By: Enedelia Gomez on 10-97-6202Hhbtzha [Mass/Vol]96 mg/dL 70-100[facility]ja Medical CenterComment on above:ADA recommended reference rangeRandom Glucose Reference Range is dependent on time and content of last meal. Glucose of more than 200 mg/dL in a nonstressed, ambulatory subject supports the diagnosisof Diabetes Mellitus.Serum or plasma potassium measurement (moles/volume)Ordered By: Enedelia Gomez on 03-95-1899Ocpwlothc [Moles/Vol]3.6 mmol/L3.5-5.1FSumma Health Akron Campuserum or plasma sodium measurement (moles/volume)Ordered By: Enedelia Gomez on 02-68-7234Tulcno [Moles/Vol]137 mmol/H994-491OmflhngmkMartins Ferry Hospitalerum or plasma total carbon dioxide measurement (moles/volume)Ordered By: Enedelia Gomez on 60-11-7052IR4 [Moles/Vol]30.5 mmol/L22.0-30.0[facility] Serum or plasma urea nitrogen measurement (mass/volume)Ordered By: Enedelia Gomez on 96-71-3354Ugka nitrogen [Mass/Vol]17 mg/dL9-23[facility] Medical CenterOffice Visit (Cardiology)on 51-86-3178Wghnvo-up visitDiagnoses/Problems Assessed Chronic atrial fibrillation (427.31) (I48.20) [...] in adult Healthy Weight Tips; Status:Complete; Done: 36Sfv1470 Patient Instructions Please bring all medicines, vitamins, [...] [place] July 2021. [facility] 20[facility], noted bradycardia with3.0-second pause [...] very rare postural orthostatic hypotension in the strap buckler machine. He denies any palpitations or fast heartbeats. [...] of Cardiac catheterization History of Complete colonoscopy [facility] History of Epidural steroid injection History of [...] (more content not included)... NormalUH TouchworksTobacco Screening.on 04-14-8210Ychmi depression screening assessmentNoProv[facility] 250 DO Work Phone: Fall risk assessmentb) One or more falls in the last year[facility] 250 DO Work Phone: Tobacco use status CPHSb) [facility] [employer] 250 DO Work Phone: Basophils Auto (Bld) [#/Vol]Ordered By: Raji Ennis on 65-47-7528Gxfgvovle (Bld) [#/Vol]0.1 10*3/uL0.0-0.2FCleveland Clinic FoundationBasophils/100 WBC Auto (Bld)Ordered By: Raji Ennis on 01-16-2022 Basophils/100 WBC (Bld)1.0 %.[facility] Medical CenterCreatinine and Glomerular filtration rate.predicted panel (S/P/Bld)Ordered By: Raji Ennis on 46-54-0247Zzkcbfqfjp [Mass/Vol]1.56 mg/dL0.64-1.27[facility]ja Medical CenterEosinophils Auto (Bld) [#/Vol]Ordered By: Raji Ennis on 01-16-2022 Eosinophils (Bld) [#/Vol]0.4 10*3/uL0.0-0.45[facility] Eosinophils/100 WBC Auto (Bld)Ordered By: Raji Ennis on 01-16-2022 Eosinophils/100 WBC (Bld)5.6 %.[facility]ja Medical CenterErythrocyte distribution width Auto (RBC) [Ratio]Ordered By: Raji Ennis on 01-16-2022 Erythrocyte distribution width (RBC) [Ratio]15.3 %12.0-14.8[facility] Medical CenterEstimated glomerular filtration rate (GFR) non- Ordered By: Raji Ennis on 43-60-1417BAH/1.73 sq M.predicted among non-blacks MDRD (S/P/Bld) [Vol rate/Area]43 mL/MinUniversity Hospitals Ahuja Medical Center Hematocrit Auto (Bld) [Volume fraction]Ordered By: Raji Ennis on 01-16-2022 Hematocrit (Bld) [Volume fraction]35.4 %38.8-50.0[facility]ja Medical CenterHemoglobin [Mass/volume] in BloodOrdered By: Raji Ennis on 01-16-2022 Hemoglobin (Bld) [Mass/Vol]11.8 g/dL13.0-17.0[facility] Laboratory - Hematology and Cell countsOrdered By: Raji Ennis on 01-16-2022 Nucleated RBC/100 WBC (Bld) [Ratio]0.0 %0-0.5FCleveland Clinic Foundation Leukocytes [#/volume] in Blood by Automated countOrdered By: Raji Ennis on 91-35-2763PZM (Bld) [#/Vol]6.5 10*3/uL4.5-11.0[facility] Lymphocytes Auto (Bld) [#/Vol]Ordered By: Raji Ennis on 56-58-4737Reajmxblupu (Bld) [#/Vol]1.1 10*3/uL1.00-4.8[facility]ja Medical CenterLymphocytes/100 WBC Auto (Bld)Ordered By: Raji Ennis on 28-61-2992Pfjikjwqwfj/100 WBC (Bld) 17.1 %.[facility] Auto (RBC) [Entitic mass]Ordered By: Raji Ennis on 80-89-7375LUT (RBC) [Entitic mass]33.2 pg27.5-35.2[facility] Auto (RBC) [Mass/Vol]Ordered By: Raji Ennis on 89-63-0715GWFR (RBC) [Mass/Vol]33.3 g/dL32.5-35.6FCleveland Clinic FoundationMCV Auto (RBC) [Entitic vol]Ordered By: Raji Raymon on 09-24-1232PSU (RBC) [Entitic vol]100.0 fL83.5-101[facility] Medical CenterMonocytes Auto (Bld) [#/Vol]Ordered By: Raji Raymon on 97-80-6710Dnldaoico (Bld) [#/Vol] 0.8 10*3/uL0.0-0.8[facility] Medical CenterMonocytes/100 WBC Auto (Bld) Ordered By: Raji Raymon on 24-67-1236Ibfoqfnfc/100 WBC (Bld)11.9 %.[facility]ja Medical CenterNeutrophils Auto (Bld) [#/Vol]Ordered By: Raji Raymon on 22-64-4359Ivhzcwyqgco (Bld) [#/Vol]4.2 10*3/uL1.8-7.7FCleveland Clinic FoundationNeutrophils/100 WBC Auto (Bld)Ordered By: Raji Raymon on 01-16-2022 Neutrophils/100 WBC (Bld)64.4 %.[facility] CenterNo Panel InformationOrdered By: Raji Raymon on 78-36-6815Cikirlylo GFR ()52 mL/MinUniversity Hospitals Ahuja Medical CenterComment on above:GFR estimated reference range: According to KDOQI guidelines, <60 ml/min/1.73m2 is sufficient todiagnose a patient with chronic kidney disease.Pharmacy Creatinine Clearance (Chem39.79[facility]ja Medical CenterPlatelet mean volume Auto (Bld) [Entitic vol]Ordered By: Raji Raymon on 44-25-8304[place] mean volume (Bld) [Entitic vol]9.1 fL6.6-10.1FCleveland Clinic FoundationPlatelets Auto (Bld) [#/Vol]Ordered By: Raji Raymon on 70-65-5405Znalhhgdh (Bld) [#/Vol]195 10*3/bP924-154GdbtjeywoUniversity Hospitals Ahuja Medical CenterRBC Auto (Bld) [#/Vol]Ordered By: Raji Ennis on 86-17-6495LIE (Bld) [#/Vol]3.54 10*6/uL3.90-5.60[facility] Ferry Hospitalerum or plasma anion gap determinationOrdered By: Raji Ennis on 55-49-8207Uzkdz gap [Moles/Vol]11.4 mmol/L6.0-15.0[facility] Ferry Hospitalerum or plasma calcium measurement (mass/volume)Ordered By: Raji Raymon on 06-82-4537Qqjbsol [Mass/Vol]9.0 mg/dL8.2-10.2FSumma Health Akron Campuserum or plasma chloride measurement (moles/volume)Ordered By: RajiStaufferam 79-93-6376Jczybxsy [Moles/Vol]95 mmol/N95-865UrmexmjwaMartins Ferry Hospitalerum or plasma glucose measurement (mass/volume)Ordered By: Raji Raymon 96-27-0442Yhzqfqs [Mass/Vol]87 mg/oV57-726GpuioeoglUniversity Hospitals Ahuja Medical CenterComment on above:ADA recommended reference rangeRandom Glucose Reference Range is dependent on time and content of last meal. Glucose of more than 200 mg/dL in a nonstressed, ambulatory subject supports the diagnosisof Diabetes Mellitus.Serum or plasma potassium measurement (moles/volume)Ordered By: Raji Ennis 84-37-3042Jzpycitxk [Moles/Vol]4.0 mmol/L3.5-5.1FSumma Health Akron Campuserum or plasma sodium measurement (moles/volume)Ordered By: Raji Ennis 14-25-3298Rmnhca [Moles/Vol]132 mmol/Z560-947TyocgflfgMartins Ferry Hospitalerum or plasma total carbon dioxide measurement (moles/volume) Ordered By: Raji Arringtonam 58-91-6441HD3 [Moles/Vol]29.6 mmol/L22.0-30.0 [facility] Hospitalerum or plasma urea nitrogen measurement (mass/volume)Ordered By: Raji Ennis 70-21-6088Qzsl nitrogen [Mass/Vol]29 mg/dL9-23[facility] Medical CenterUrine culture routineOrdered By: Frankie Reynolds on 21-16-2777Cztasact identified Cx Nom (U)No Growth 2 Days [facility] CenterAutomated erythrocytes count in urine sediment (number/area)Ordered By: Frankie Reynolds on 48-55-8397CGB Auto (Urine sed) [#/Area]50-100 [HPF]0-4FCleveland Clinic FoundationAutomated leukocytes count in urine sediment (number/area)Ordered By: Frankie Reynolds on 61-12-8213WGZ Auto (Urine sed) [#/Area]5-9 [HPF]0-4FCleveland Clinic FoundationBilirubin Test strip Ql (U)Ordered By: Frankie Reynolds on 38-97-5980Zglpytaip Ql (U)Negative NegativeUniversity Hospitals Ahuja Medical CenterColor Auto (U)Ordered By: Frankie Reynolds on 03-72-4207Ycvlz (U)YellowYellowUniversity Hospitals Ahuja Medical CenterKetones Auto test strip (U) [Mass/Vol]Ordered By: Frankie Reynolds on 83-82-0837Agujtdd (U) [Mass/Vol]NegativeNegativeUniversity Hospitals Ahuja Medical CenterLaboratory - UrinalysisOrdered By: Frankie Reynolds on 10-95-2763Htorqtn casts LM Ql (Urine sed) 0-8 [LPF]0-8[facility] Medical CenterNitrite Test strip Ql (U)Ordered By: Frankie Reynolds on 19-69-8548Wufoedo Ql (U)NegativeNegMercy Health Defiance HospitalProtein Auto test strip (U) [Mass/Vol]Ordered By: Frankie Reynolds on 56-62-4908Qbskkmz (U) [Mass/Vol]30 mg/dLNegativeMartins Ferry Hospitalerum or plasma uric acid measurement (mass/volume)Ordered By: Frankie Reynolds on 39-64-5798Baunu [Mass/Vol]4.7 mg/dL2.6-7.2FSumma Health Akron Campuserum or plasma vancomycin measurement (mass/volume)Ordered By: Raji Ennis on 67-36-1466Exvhkziolf [Mass/Vol]9.7 ug/mL5.0-20.0[facility] Medical CenterComment on above:Last dose: -Specific gravity Auto test strip (U) [Rel density]Ordered By: Frankie Reynolds on 54-23-6204Ilzxzppa gravity (U) [Rel density]1.0121.001-1.030Martins Ferry Hospitalquamous epithelial cells detection in urine sediment by light microscopyOrdered By: Frankie Reynolds on 79-93-4585Kbzyaqikgf cells.squamous LM Ql (Urine sed)0-1 [HPF]0-2FCleveland Clinic FoundationUrine bacteria detection by automated methodOrdered By: Frankie Reynolds on 99-41-6666Vzyeghno Auto Ql (U)None seenNone SeenUniversity Hospitals Ahuja Medical CenterUrine clarity by refractometry automatedOrdered By: Frankie Reynolds on 88-35-9619Kpkqurp Refractometry automated (U)ClearClear [facility] Medical CenterUrine culture routineOrdered By: Frankie Reynolds on 52-10-7309[place] identified Cx Nom (U)No Growth 2 DaysUniversity Hospitals Ahuja Medical CenterUrine glucose measurement by automated test strip (mass/volume) Ordered By: Frankie Reynolds on 06-07-0851Qkgskxr Auto test strip (U) [Mass/Vol] Normal mg/dLNoDayton Osteopathic HospitalUrine hemoglobin detection by automated test stripOrdered By: Frankie Reynolds on 68-62-7876Qviwspdgdf Auto test strip Ql (U)3+NegativeUniversity Hospitals Ahuja Medical CenterUrine leukocyte esterase detection by automated test stripOrdered By: Frankie Reynolds on 01-13-2022 Leukocyte esterase Auto test strip Ql (U)2+NegativeUniversity Hospitals Ahuja Medical CenterUrobilinogen Auto test strip (U) [Mass/Vol]Ordered By: Frankie Reynolds on 51-19-2179Ksquzmvzpoqd (U) [Mass/Vol]Normal mg/dLNoDayton Osteopathic HospitalpH Auto test strip (U)Ordered By: Frankie Reynolds on 58-49-9932mJ (U)5.5 [pH]5.0-9.0[facility] Medical CenterBacterial blood culture Ordered By: Raji Ennis on 47-08-3452Cpcriymz identified Cx Nom (Bld)NO GROWTH 5 DAYSUniversity Hospitals Ahuja Medical CenterC reactive protein [Mass/volume] in Serum or PlasmaOrdered By: Raji Ennis on 44-61-4654SUG [Mass/Vol]8.4 mg/dL0.0-1.0 [facility] Medical CenterAlbumin [Mass/volume] in Serum or PlasmaOrdered By: Vikas Mane on 11-28-7284Ypigwss [Mass/Vol]2.9 g/dL2.9-4.4FCleveland Clinic FoundationIgA [Mass/volume] in Serum or PlasmaOrdered By: Vikas Mane on 92-11-9849CeT [Mass/Vol]171 mg/hQ72-009CxejbiwchUniversity Hospitals Ahuja Medical CenterIgG [Mass/volume] in Serum or PlasmaOrdered By: Vikas Mane on 01-11-2022 IgG [Mass/Vol]816 mg/vG241-8337LthownbglUniversity Hospitals Ahuja Medical CenterIgM [Mass/volume] in Serum or PlasmaOrdered By: Vikas Mane on 96-30-4558FkJ [Mass/Vol]105 mg/fP17-344UlxxmdypaUniversity Hospitals Ahuja Medical CenterComment on above: Performed at: [employer] [id number] Director: Patrick Ortiz PhD, Phone: [phone] Panel InformationOrdered By: Vikas Mane on 33-02-9163Udkxsov Electrophoresis M-SpikeNot observed g/dLNot ObservedUniversity Hospitals Ahuja Medical CenterProtein Electrophoresis NoteSee comment.[facility]ja Medical CenterComment on above:Protein electrophoresis scan will follow via computer,mail, or carbonizer delivery.Performed at: [employer] [id number] Director: Patrick Ortiz PhD, Phone: [phone] ImmunofixationSee comment.[facility]ja Medical CenterComment on above:No monoclonality detected.Protein [Mass/volume] in Serum or PlasmaOrdered By: Vikas Mane on 05-40-7105Cupyjjn [Mass/Vol]5.3 g/dL6.0-8.5FSumma Health Akron Campuserum globulin measurement (mass/volume)Ordered By: Vikas Mane on 37-78-8132Ofyowaoy (S) [Mass/Vol]2.4 g/dL2.2-3.9Martins Ferry Hospitalerum or plasma albumin/globulin mass ratioOrdered By: Vikas Mane on 04-20-8885Sleqpgg/Globulin [Mass ratio]1.2 {ratio}0.7-1.7FSumma Health Akron Campuserum or plasma alpha 1 globulin measurement by electrophoresis (mass/volume)Ordered By: Vikas Mane on 47-48-2820Wvvaa 1 globulin Elph [Mass/Vol]0.4 g/dL0.0-0.4FSumma Health Akron Campuserum or plasma alpha 2 globulin measurement by electrophoresis (mass/volume)Ordered By: Vikas Mane on 23-46-7632Wbdbi 2 globulin Elph [Mass/Vol]0.7 g/dL0.4-1.0Mart[facility] Ferry Hospitalerum or plasma beta globulin measurement by electrophoresis (mass/volume)Ordered By: Vikas Mane on 05-25-5903Swbo globulin Elph [Mass/Vol] 0.6 g/dL0.7-1.3FSumma Health Akron Campuserum or plasma gamma globulin measurement by electrophoresis (mass/volume)Ordered By: Vikas Mane on 94-70-4002Vnsgn globulin Elph [Mass/Vol]0.8 g/dL0.4-1.8[facility] Medical CenterFolate [Mass/volume] in Serum or PlasmaOrdered By: Dharmesh Zavala on 28-36-3133Pavlcy [Mass/Vol]8.8 ng/mL>5.9[facility] Medical CenterComment on above:Folate reference range: >5.9 ng/mlThe WHO technical consultation on folate and vitamin t68ukzrdxnoiofg has determined that folate concentrations lessthan 4 ng/ml are considered deficient.Glucose mean value [Mass/volume] in Blood Estimated from glycated hemoglobinOrdered By: Dharmesh Zavala on 47-18-9596Lbgptpz glucose Estimated from glycated hemoglobin (Bld) [Mass/Vol]114 mg/dLUniversity Hospitals Ahuja Medical CenterHemoglobin A1c percentage Ordered By: Dharmesh Zavala on 81-64-6114XkR5a (Bld) [Mass fraction]5.6 % 4.3-5.6FCleveland Clinic FoundationComment on above:Increased risk for diabetes: 5.7 - 6.4diabetes: >6.4glycemic control for adults with diabetes: &l t;7.0Iron [Mass/volume] in Serum or PlasmaOrdered By: Dharmesh Zavala on 41-53-0227Eyzq [Mass/Vol]13 ug/oZ33-241EwpelbxsvUniversity Hospitals Ahuja Medical Center Laboratory - Chemistry and Chemistry - challengeOrdered By: Dharmesh Zavala on 78-13-1807Eoglzssjj (Vitamin B12) [Mass/Vol]458 pg/cP190-220XvfdwxlolUniversity Hospitals Ahuja Medical CenterMagnesium [Mass/Vol]1.9 mg/dL1.6-2.6FCleveland Clinic FoundationNatriuretic peptide B (Bld) [Mass/Vol]679.0 pg/mL5-100[facility] CenterTS DL <= 0.005 mIU/L QnOrdered By: Dharmesh Zavala on 43-87-3450AZU Qn3.99 m[IU]/L0.45-5.33[facility] Troponin I.cardiac [Mass/volume] in Serum or Plasma by High sensitivity method Ordered By: Dharmesh Zavala on 75-12-2670Livxepkv I.cardiac High sensitivity method [Mass/Vol]110 pg/mL0-20[facility] Comment on above:Results calledat 0808 on 01/10/22Activated partial thromboplastin time (aPTT) in platelet poor plasma by coagulation aOrdered By: Frankie Paiz on 12-37-5484wYHD Coag (PPP) [Time]39.1 s25.1-36.5FCleveland Clinic FoundationAutomated erythrocytes count in urine sediment (number/area)Ordered By: Frankie Paiz on 96-72-4283NTX Auto (Urine sed) [#/Area]0-1 [HPF]0-4FCleveland Clinic FoundationAutomated leukocytes count in urine sediment (number/area)Ordered By: Frankie Paiz on 72-03-1343APW Auto (Urine sed) [#/Area]5-9 [HPF]0-4FCleveland Clinic FoundationBasophils Auto (Bld) [#/Vol]Ordered By: Frankie Paiz on 49-90-4626Awnbkzdyp (Bld) [#/Vol]0.1 10*3/uL0.0-0.2FCleveland Clinic FoundationBasophils/100 WBC Auto (Bld) Ordered By: Frankie Paiz on 50-17-9847Gbamkdfkk/100 WBC (Bld)1.0 %.[facility]ja Medical CenterBilirubin Test strip Ql (U)Ordered By: Frankie Paiz on 08-50-7134Jqosnjrsy Ql (U)NegativeNegMercy Health Defiance Hospital COVID-19 Positive/NegativeOrdered By: Frankie Paiz on 48-00-6890YUSR-CoV-2 (COVID-19) N gene SMITHA+probe Ql (Resp)NegativeNegMercy Health Defiance HospitalComment on above:Testing for SARS-CoV-2 by RT-PCRThis test was developed and its performance characteristics determined by [employer] ([employer]) and validated at the [facility]. This test has not been FDA cleared [...] sooner. COVID-19 SOFIAOrdered By: Frankie Paiz on 84-10-2217SOUE-CoV+SARS-CoV-2 (COVID-19) Ag IA.rapid Ql (Resp)NegativeNegMercy Health Defiance HospitalComment on above:This is a duplicate Veronica SARS Antigen (MADHAVI) result to be used for statistical tracking purpose only.Color Auto (U)Ordered By: Frankie Paiz on 99-44-3434Gxhff (U)YellowYellowUniversity Hospitals Ahuja Medical Center Creatine kinase [Enzymatic activity/volume] in Serum or PlasmaOrdered By: Frankie Paiz on 53-31-8190MT [Catalytic activity/Vol]231 U/O76-917XebnarcnjUniversity Hospitals Ahuja Medical CenterCreatinine and Glomerular filtration rate.predicted panel (S/P/Bld)Ordered By: Frankie Paiz on 53-97-9852Zauqjzxkle [Mass/Vol]1.62 mg/dL 0.64-1.27[facility] Medical CenterEosinophils Auto (Bld) [#/Vol]Ordered By: Frankie Paiz on 55-79-8147Choseyiitab (Bld) [#/Vol]0.0 10*3/uL0.0-0.45 [facility] Medical CenterEosinophils/100 WBC Auto (Bld)Ordered By: Frankie Paiz on 14-40-4531Cnbqtptbvxb/100 WBC (Bld)0.1 %.[facility] Medical CenterErythrocyte distribution width Auto (RBC) [Ratio]Ordered By: Frankie Paiz on 35-29-9156Qbkxnpzzdpy distribution width (RBC) [Ratio]15.9 % 12.0-14.8[facility] Medical CenterEstimated glomerular filtration rate (GFR) non- AmericanOrdered By: Frankie Paiz on 87-00-5055IZH/1.73 sq M.predicted among non-blacks MDRD (S/P/Bld) [Vol rate/Area]41 mL/MinUniversity Hospitals Ahuja Medical CenterHematocrit Auto (Bld) [Volume fraction]Ordered By: Frankie Paiz on 74-76-0537Sxlvozujbw (Bld) [Volume fraction]36.5 %38.8-50.0 [facility] Medical CenterHemoglobin [Mass/volume] in BloodOrdered By: Frankie Paiz on 37-34-3506Ealbtwozju (Bld) [Mass/Vol]12.1 g/dL13.0-17.0 [facility] Medical CenterKetones Auto test strip (U) [Mass/Vol]Ordered By: Frankie Paiz on 87-17-1476Tiavjlg (U) [Mass/Vol]TraceNegativeUniversity Hospitals Ahuja Medical CenterLaboratory - Chemistry and Chemistry - challengeOrdered By: Frankie Paiz on 82-92-3455Ubycrxyjgdv peptide B (Bld) [Mass/Vol]1810.0 pg/mL5-100[facility] CenterLaboratory - CoagulationOrdered By: Frankie Paiz on 76-94-7670XT Coag (PPP) [Time]28.4 s9.0-12.9[facility] CenterLaboratory - Hematology and Cell countsOrdered By: Frankie Paiz on 56-19-6032Zwzbxyhal RBC/100 WBC (Bld) [Ratio]0.1 %0-0.5FCleveland Clinic FoundationLaboratory - UrinalysisOrdered By: Frankie Paiz on 01-09-2022 Hyaline casts LM Ql (Urine sed)0-8 [LPF]0-8[facility] Leukocytes [#/volume] in Blood by Automated countOrdered By: Frankie Paiz on 61-03-4798FZI (Bld) [#/Vol]6.0 10*3/uL4.5-11.0[facility] Lymphocytes Auto (Bld) [#/Vol]Ordered By: Frankie Paiz on 01-09-2022 Lymphocytes (Bld) [#/Vol]0.8 10*3/uL1.00-4.8[facility] Lymphocytes/100 WBC Auto (Bld)Ordered By: Frankie Paiz on 01-09-2022 Lymphocytes/100 WBC (Bld)13.5 %.[facility] Auto (RBC) [Entitic mass]Ordered By: Frankie Paiz on 41-87-9998LFA (RBC) [Entitic mass] 33.7 pg27.5-35.2FCleveland Clinic FoundationMCHC Auto (RBC) [Mass/Vol] Ordered By: Frankie Paiz on 78-85-9480PYQJ (RBC) [Mass/Vol]33.2 g/dL32.5-35.6 [facility] Medical CenterMCV Auto (RBC) [Entitic vol]Ordered By: Frankie Paiz on 12-43-8402KLC (RBC) [Entitic vol]101.5 fL83.5-101[facility] Medical CenterMonocytes Auto (Bld) [#/Vol]Ordered By: Frankie Paiz on 34-58-5434Mwnvendqu (Bld) [#/Vol]0.9 10*3/uL0.0-0.8[facility] CenterMonocytes/100 WBC Auto (Bld)Ordered By: Frankie Paiz on 01-09-2022 Monocytes/100 WBC (Bld)14.2 %.[facility] CenterNeutrophils Auto (Bld) [#/Vol]Ordered By: Frankie Paiz on 21-33-1015Inwadwgvnqg (Bld) [#/Vol] 4.3 10*3/uL1.8-7.7FCleveland Clinic FoundationNeutrophils/100 WBC Auto (Bld)Ordered By: Frankie Paiz on 74-11-4723Ajizocaoyvk/100 WBC (Bld)71.2 %. [facility] CenterNitrite Test strip Ql (U)Ordered By: Frankie Paiz on 54-17-6872Vkinpij Ql (U)NegativeNegativeUniversity Hospitals Ahuja Medical CenterNo Panel InformationOrdered By: Frankie Paiz on 69-61-8091IHGD Antigen (LFIA)[facility] CenterEstimated GFR ()50 mL/Min [facility] CenterComment on above:GFR estimated reference range: According to KDOQI guidelines, <60 ml/min/1.73m2 is sufficient todiagnose a patient with chronic kidney disease.Pharmacy Creatinine Clearance (Chem39.44 [facility] HospitalARS Antigen (LFIA)[facility] CenterPlatelet mean volume Auto (Bld) [Entitic vol]Ordered By: Frankie Paiz on 60-93-7333Pdvecmim mean volume (Bld) [Entitic vol]8.3 fL6.6-10.1FCleveland Clinic FoundationPlatelet poor plasma international normalized ratio (INR) by coagulation assay (relatOrdered By: Frankie Paiz on 27-54-3695FSE Coag (PPP) [Relative time]2.5 {INR}[facility] CenterComment on above: INR Therapeutic Range A) Pre- [...] Auto (Bld) [#/Vol]Ordered By: Frankie Paiz on 11-91-7125Kgubhurda (Bld) [#/Vol]162 10*3/zF440-346BautcvrypUniversity Hospitals Ahuja Medical CenterProtein Auto test strip (U) [Mass/Vol]Ordered By: Frankie Paiz on 67-92-4716Cpvoite (U) [Mass/Vol]Trace mg/dLNegativeUniversity Hospitals Ahuja Medical CenterRBC Auto (Bld) [#/Vol]Ordered By: Frankie Paiz on 58-59-4612PRW (Bld) [#/Vol]3.59 10*6/uL 3.90-5.60[facility]erry Hospitalerum or plasma anion gap determinationOrdered By: Frankie Paiz on 42-23-9384Pgndj gap [Moles/Vol]14.9 mmol/L6.0-15.0[facility]erry Hospitalerum or plasma calcium measurement (mass/volume)Ordered By: Frankie Paiz on 78-92-3324Ywsccjx [Mass/Vol]9.2 mg/dL8.2-10.2FSumma Health Akron Campuserum or plasma chloride measurement (moles/volume)Ordered By: Frankie Paiz on 01-09-2022 Chloride [Moles/Vol]100 mmol/G35-244HvqgnphrzMartins Ferry Hospitalerum or plasma creatine kinase MB (CKMB)/total creatine kinase (CK) ratio by calcula Ordered By: Frankie Paiz on 02-91-7869OI.MB Calc [Catalytic fraction]2.3 % 0.00-2.50[facility] Ferry Hospitalerum or plasma creatine kinase MB measurement (mass/volume)Ordered By: Frankie Paiz on 56-05-0720YC.MB [Mass/Vol]5.4 ng/mL0.6-6.3FSumma Health Akron Campuserum or plasma glucose measurement (mass/volume)Ordered By: Frankie Paiz on 00-07-4498Qkdruex [Mass/Vol]99 mg/iV22-223JhabeynlcUniversity Hospitals Ahuja Medical CenterComment on above:ADA recommended reference rangeRandom Glucose Reference Range is dependent on time and content of last meal. Glucose of more than 200 mg/dL in a nonstressed, ambulatory subject supports the diagnosisof Diabetes Mellitus.Serum or plasma potassium measurement (moles/volume)Ordered By: Frankie Paiz on 01-09-2022 Potassium [Moles/Vol]4.1 mmol/L3.5-5.1FSumma Health Akron Campuserum or plasma sodium measurement (moles/volume)Ordered By: Frankie Paiz on 01-09-2022 Sodium [Moles/Vol]136 mmol/P250-982AqtemrxbqMartins Ferry Hospitalerum or plasma total carbon dioxide measurement (moles/volume)Ordered By: Frankie Paiz on 53-36-3514HK6 [Moles/Vol]25.2 mmol/L22.0-30.0[facility] Hospitalerum or plasma urea nitrogen measurement (mass/volume)Ordered By: Frankie Paiz on 02-32-6185Kkzb nitrogen [Mass/Vol]21 mg/dL9-23[facility]erry Hospitalpecific gravity Auto test strip (U) [Rel density]Ordered By: Frankie Paiz on 93-63-3290Swllsfcz gravity (U) [Rel density]1.0181.001-1.030 [facility] Hospitalquamous epithelial cells detection in urine sediment by light microscopyOrdered By: Frankie Paiz on 58-24-6305Rxkgwarhdx cells.squamous LM Ql (Urine sed)0-1 [HPF]0-2FCleveland Clinic Foundation Troponin I.cardiac [Mass/volume] in Serum or Plasma by High sensitivity method Ordered By: Frankie Paiz on 33-60-5971Dsokbuvv I.cardiac High sensitivity method [Mass/Vol]101 pg/mL0-20[facility] CenterComment on above: Results calledat 1208 on 01/09/22Urine bacteria detection by automated method Ordered By: Frankie Paiz on 22-40-2618Bcrxuier Auto Ql (U)None seenNone Seen [facility] CenterUrine clarity by refractometry automatedOrdered By: Frankie Paiz on 39-42-9480Uykxmdu Refractometry automated (U)CloudyClear [facility] CenterUrine glucose measurement by automated test strip (mass/volume)Ordered By: Frankie Paiz on 66-79-3823Kcftxto Auto test strip (U) [Mass/Vol]Normal mg/dLNoDayton Osteopathic HospitalUrine hemoglobin detection by automated test stripOrdered By: Frankie Paiz on 81-35-5629Rocxacqmiz Auto test strip Ql (U)NegativeNegativeUniversity Hospitals Ahuja Medical CenterUrine leukocyte esterase detection by automated test stripOrdered By: Frankie Paiz on 21-26-4726Seyixrstq esterase Auto test strip Ql (U)2+ NegativeUniversity Hospitals Ahuja Medical CenterUrobilinogen Auto test strip (U) [Mass/Vol]Ordered By: Frankie Paiz on 62-47-9344Dagxhohtiyyx (U) [Mass/Vol] Normal mg/dLNormalUniversity Hospitals Ahuja Medical CenterYeast detection in urine sediment by light microscopyOrdered By: Frankie Paiz on 56-36-4367Kxdbj LM Ql (Urine sed)None seen [HPF]None SeenUniversity Hospitals Ahuja Medical CenterpH Auto test strip (U)Ordered By: Frankie Paiz on 92-83-0616zF (U)5.5 [pH]5.0-9.0[facility] CenterBody fluid albumin measurement (mass/volume)Ordered By: Opal Ga on 56-34-2993Wgwmtlb (Body fld) [Mass/Vol]3.5 g/dL3.2-5.5FCleveland Clinic FoundationCreatinine and Glomerular filtration rate.predicted panel (S/P/Bld)Ordered By: Opal Ga on 92-07-4786Tzkntpniqm [Mass/Vol]1.29 mg/dL 0.64-1.27[facility] CenterEstimated glomerular filtration rate (GFR) non- AmericanOrdered By: Opal Ga on 89-32-8121ZUR/1.73 sq M.predicted among non-blacks MDRD (S/P/Bld) [Vol rate/Area]54 mL/MinUniversity Hospitals Ahuja Medical CenterGlobulin Calc (S) [Mass/Vol]Ordered By: Opal Ga on 01-82-6146Iqiclues (S) [Mass/Vol]2.2 g/dLUniversity Hospitals Ahuja Medical CenterNo Panel InformationOrdered By: Opal Ga on 69-79-6466Vptbozxvl GFR ()> 60 mL/MinUniversity Hospitals Ahuja Medical CenterComment on above:GFR estimated reference range: According to KDOQI guidelines, <60 ml/min/1.73m2 is sufficient todiagnose a patient with chronic kidney disease.Pharmacy Creatinine Clearance (ChemN/[facility] SouthwoodsProtein [Mass/volume] in Serum or PlasmaOrdered By: Opal Ga on 86-40-5011Mrmfbcu [Mass/Vol]5.7 g/dL 6.1-7.9[facility]erry Hospitalerum or plasma alanine aminotransferase measurement without P-5'-P (enzymatic activiOrdered By: Opal Ga on 75-35-8920QDZ No additional P-5'-P [Catalytic activity/Vol]19 U/R48-41ZcmprsqfwMartins Ferry Hospitalerum or plasma albumin/globulin mass ratioOrdered By: Opal Ga on 28-48-2919Okrornm/Globulin [Mass ratio]1.6 {ratio}[facility] Hospitalerum or plasma alkaline phosphatase measurement (enzymatic activity/volume)Ordered By: Opal Ga on 63-20-4327LCA [Catalytic activity/Vol]92 U/F59-88NrprxkpxlMartins Ferry Hospitalerum or plasma anion gap determinationOrdered By: Opal Ga on 22-02-8949Dupvf gap [Moles/Vol]15.3 mmol/L6.0-15.0[facility] Hospitalerum or plasma aspartate aminotransferase measurement (enzymatic activity/volume)Ordered By: Opal Ga on 33-37-6104HBY [Catalytic activity/Vol]27 U/E33-96VmtjuxdydMartins Ferry Hospitalerum or plasma calcium measurement (mass/volume)Ordered By: Opal Ga on 23-19-7829Hhshfwo [Mass/Vol]9.6 mg/dL8.2-10.2FC[facility] Clinic Foundation Serum or plasma chloride measurement (moles/volume)Ordered By: Opal Ga on 66-34-7452Kvllmtin [Moles/Vol]103 mmol/X25-880PpepevzzlUniversity Hospitals Ahuja Medical Center Serum or plasma glucose measurement (mass/volume)Ordered By: Opal Ga on 42-27-7228Xvuyhwn [Mass/Vol]84 mg/zX48-042ShkorrfwpUniversity Hospitals Ahuja Medical Center Comment on above:ADA recommended reference rangeRandom Glucose Reference Range is dependent on time and content of last meal. Glucose of more than 200 mg/dL in a nonstressed, ambulatory subject supports the diagnosisof Diabetes Mellitus. Serum or plasma potassium measurement (moles/volume)Ordered By: Opal Ga on 34-46-1053Aijioathu [Moles/Vol]4.5 mmol/L3.5-5.1FSumma Health Akron Campuserum or plasma sodium measurement (moles/volume)Ordered By: Opal Ga on 12-62-4392Gckjzg [Moles/Vol]139 mmol/K942-551OpacigbjbUniversity Hospitals Ahuja Medical Center Serum or plasma total bilirubin measurement (mass/volume)Ordered By: Opal Ga on 92-19-9408Zzeqcoged [Mass/Vol]1.2 mg/dL0.3-1.2FSumma Health Akron Campuserum or plasma total carbon dioxide measurement (moles/volume)Ordered By: Opal Ga on 06-01-8036FT9 [Moles/Vol]25.2 mmol/L22.0-30.0[facility] Hospitalerum or plasma urea nitrogen measurement (mass/volume)Ordered By: Opal Ga on 33-60-7756Vuba nitrogen [Mass/Vol]16 mg/dL9-[facility] CenterTS DL <= 0.005 mIU/L QnOrdered By: Opal Ga on 39-48-7094KCE Qn 1.83 m[IU]/L0.45-5.33[facility] Medical CenterThyroxine (T4) free [Mass/volume] in Serum or PlasmaOrdered By: Opal Ga on 61-86-6270Hzcr T4 [Mass/Vol]1.09 ng/dL0.61-1.12[facility] CenterOffice Visit (Cardiology)on 20-33-2772Fwkfus-up visitDiagnoses/Problems Assessed Non-ischemic cardiomyopathy (425.4) (I42.8) Chronic [...] Former smoker Tobacco Use Screening; Status:Complete; Done: 22Udp0259 Patient Instructions By signing my name below, [...] of Cardiac catheterization History of Complete colonoscopy [facility] History of Hip replacement History of Knee [...] com (more content not included)...NormalUH TouchworksTobacco Screening.on 57-44-1290Ygoht depression screening assessmentNoProvidence [facility] [place] Teddy Bear DO Work Phone: Fall risk assessmentb) One or more falls in the last yearProv[facility] [place] Teddy Bear DO Work Phone: Tobacco use status CPHSb) NoMKittitas Valley Healthcare [facility] [place] 250 DO Work Phone: Tobacco Screening.on 32-69-5705Kgfe risk assessmentb) One or more falls in the last yearProv[facility] 250 DO Work Phone: Tobacco use status CPHSb) NoMKittitas Valley Healthcare [facility] [place] 250 DO Work Phone: Vital Signs Date TimeVital SignValuePerforming PtddsmeihQdvpmmrm32-64-0661 14:46-0400Heart rate95 /minOpal Ga DO Work Phone: [facility]10-14-2025 14:46-0400 Respiratory rate20 /minOpal Ga DO Work Phone: [phone]10-14-2025 12:00-0400 Body cseowrnbczd54.8 [degF]Opal Ga DO Work Phone: [phone]10-14-2025 12:00-0400 Diastolic blood dbyxvpqa60 mm[Hg]Opal Ga DO Work Phone: [address] [place], [place] [address]10-14-2025 12:00-0400 SaO2% (BldA) [Mass fraction]94 %Opal Ga DO Work Phone: [facility]10-14-2025 12:00-0400 Systolic blood nhlkdban762 mm[Hg]Opalamadou Ga DO Work Phone: [facility]10-14-2025 05:59-0400 Body xrgyxp16 kgOpal Ga DO Work Phone: [facility]10-09-2025 13:08-0400 Body rywatw719.64 cmOpal Ga DO Work Phone: [facility]10-08-2025 16:05-0400 Diastolic blood dweoynyb63 mm[Hg]PHYSICIAN NO [facility]10-08-2025 16:05-0400Heart rate97 /minPHYSICIAN [facility]10-08-2025 16:05-0400Respiratory rate16 /minPHYSICIAN [facility]10-08-2025 16:05-7856CrM6% (BldA) [Mass fraction]100 %PHYSICIAN NO [facility]10-08-2025 16:05-0400Systolic blood bfziedrx425 mm[Hg]PHYSICIAN NO [facility]10-08-2025 12:10-0400Body .64 cmPHYSICIAN [facility]10-08-2025 12:10-0400Body ctrvgycoutp81.2 [degF]PHYSICIAN [facility]10-08-2025 12:10-0400 Body vecyuy39.4 kgPHYSICIAN [facility]09-30-2025 08:56-0400Body inddne550.64 cmPHYSICIAN [facility]09-30-2025 08:56-0400Body kgPHYSICIAN [facility]08-06-2025 08:00-0400Body .6 [degF]Melvi Hindsb BUNDLE CUTTER Work Phone: [address] [place], [place] 5726108-06-2025 08:00-0400 Diastolic blood tzlaogcr24 mm[Hg]Melvi Kiera B[employer]DLE CUTTER Work Phone: [facility]08-06-2025 08:00-0400 Heart rate67 /minAmanda Kiera BUNDLE CUTTER Work Phone: [facility]08-06-2025 08:00-0400 Respiratory rate18 /minAmanda Kiera BUNDLE CUTTER Work Phone: [facility]08-06-2025 08:00-0400 SaO2% (BldA) [Mass fraction]93 %Melvi Kiera B[employer]DLE CUTTER Work Phone: [facility]08-06-2025 08:00-0400 Systolic blood zuqwjwpl42 mm[Hg]Melvi Kiera BUNDLE CUTTER Work Phone: [address] [place], [place] 5726108-06-2025 06:11-0400 Body peblbg60.4 kgAmanda Kiera B[employer]DLE CUTTER Work Phone: [phone] [place], [place] 4792908-03-2025 03:35-0400 Inhaled oxygen flow rate2 L/minAmanda Kiera BUNDLE CUTTER Work Phone: [phone]08-02-2025 14:03-0400 Body qkankk577.48 cmAmanda Kiera B[employer]DLE CUTTER Work Phone: [phone]08-01-2025 22:55-0400 Diastolic blood edtbhpiu34 mm[Hg]Melvi Kiera [employer] C[employer]TER Work Phone: [phone]08-01-2025 22:55-0400 Heart emik299 /minAmanda Kiera B[employer]DLE CUTTER Work Phone: [phone] [place], [place] 5726108-01-2025 22:55-0400 Respiratory rate20 /minAmanda Kiera BUNDLE CUTTER Work Phone: [address] [place], [place] 5726108-01-2025 22:55-0400 SaO2% (BldA) [Mass fraction]98 %Melvi Kiera B[employer] CUTTER Work Phone: [phone] [place], [place] 4792908-01-2025 22:55-0400 Systolic blood wnpiaqoy971 mm[Hg]Melvi Kiera B[employer] C[employer]TER Work Phone: [phone])492-[address] [place], [place] 4792908-01-2025 17:56-0400 Body ichesc263.48 cmAmanda Kiera B[employer]DLE CUTTER Work Phone: [phone] [place], [place] 4792908-01-2025 17:56-0400 Body nypqeqobmuz36.7 [degF]Melvi Kiera B[employer] C[employer]TER Work Phone: [phone] [place], [place] 4792908-01-2025 17:56-0400 Body skyfos45.1 kgAmanda Kiera B[employer]DLE CUTTER Work Phone: [phone]07-31-2025 14:00-0400 Body nwcewy602.48 cmAmanda Kiera BUNDLE CUTTER Work Phone: [facility]07-31-2025 14:00-0400 Body ilycazvmclz88.2 [degF]Melvi Kiera B[employer] CUTTER Work Phone: [facility]07-31-2025 14:00-0400 Diastolic blood vudujcnb28 mm[Hg]Melvi Kiera B[employer]DLE CUTTER Work Phone: [facility]07-31-2025 14:00-0400 Heart rate43 /minAmanda Kiera BUNDLE CUTTER Work Phone: [facility]07-31-2025 14:00-0400 Systolic blood onojyzap684 mm[Hg]Melvi Kiera B[employer] C[employer]TER Work Phone: [phone]05-13-2025 11:27-0400 Body tfxvzfaexsm44.7 [degF]Melvi Kiera B[employer]DLE CUTTER Work Phone: [facility]05-13-2025 11:27-0400 Diastolic blood mm[Hg]Melvi Kiera B[employer]DLE CUTTER Work Phone: [facility]05-13-2025 11:27-0400 Heart rate83 /minAmanda Kiera BUNDLE CUTTER Work Phone: [facility]05-13-2025 11:27-0400 Respiratory rate18 /minAmanda Kiera B[employer]DLE CUTTER Work Phone: [phone]05-13-2025 11:27-0400 SaO2% (BldA) [Mass fraction]99 %Melvi Kiera B[employer] CUTTER Work Phone: [facility]05-13-2025 11:27-0400 Systolic blood ypyvptow134 mm[Hg]Melvi Kiera B[employer]DLE CUTTER Work Phone: [facility]05-13-2025 06:00-0400 Body cuyqmz82.1 kgAmanda Kiera BUNDLE CUTTER Work Phone: [facility]05-09-2025 16:26-0400 Body hywfrl390.64 cmAmanda Kiera B[employer]DLE CUTTER Work Phone: [phone] [place], [place] 4792905-09-2025 04:00-0400 Inhaled oxygen flow rate2 L/minAmanda Kiera BUNDLE CUTTER Work Phone: [phone] [place], [place] 4792905-08-2025 19:00-0400 Diastolic blood ecqlfshp12 mm[Hg]Melvi Kiera B[employer]DLE CUTTER Work Phone: [address] [place], [place] 5726105-08-2025 19:00-0400 Heart bcoy094 /minAmanda Kiera B[employer]DLE CUTTER Work Phone: [phone] [place], [place] 4792905-08-2025 19:00-0400 Inhaled oxygen flow rate2 L/minAmanda Kiera BUNDLE CUTTER Work Phone: [address] [place], [place] 5726105-08-2025 19:00-0400 Respiratory rate24 /minAmanda Kiera BUNDLE CUTTER Work Phone: [address] [place], [place] 5726105-08-2025 19:00-0400 SaO2% (BldA) [Mass fraction]95 %Melvi Kiera B[employer]DLE CUTTER Work Phone: [phone] [place], [place] 4792905-08-2025 19:00-0400 Systolic blood dehaugqy185 mm[Hg]Melvi Kiera BUNDLE CUTTER Work Phone: [address] [place], [place] 5726105-08-2025 14:38-0400 Body ojefdk510.64 cmAmanda Kiera B[employer]DLE CUTTER Work Phone: [phone] [place], [place] 4792905-08-2025 14:38-0400 Body oycboofbtnf03.2 [degF]Melvi Kiera B[employer]DLE CUTTER Work Phone: [address] [place], [place] 5726105-08-2025 14:38-0400 Body peijng840.2 kgAmanda Kiera B[employer]DLE CUTTER Work Phone: [phone] [place], [place] 4792902-20-2025 12:09-0500 Body jqjvlzscxoh43.1 [degF]Partha Gabriel DPM Work Phone: [facility]02-20-2025 12:09-0500Diastolic blood ldivtyjv69 mm[Hg]aPrtha Smartert DPM Work Phone: [facility]02-20-2025 12:09-0500Heart rate78 /min Partha Harvey DPM Work Phone: [facility]02-20-2025 12:09-0500Respiratory rate 18 /minVidyakhurram Gabriel DPM Work Phone: [facility]02-20-2025 12:09-9056LtZ8% (BldA) [Mass fraction]98 %Partha Gabriel DPM Work Phone: [facility]02-20-2025 12:09-0500Systolic blood yjoshivy208 mm[Hg]Partha Smartert DPM Work Phone: [facility]01-09-2025 16:16-0500Body temperature 97.9 [degF]Opal Tjs DO Work Phone: [facility]01-09-2025 16:16-0500 Diastolic blood ntzbgxou67 mm[Hg]Opal Sparkss DO Work Phone: [facility]01-09-2025 16:16-0500 Heart rate79 /minEdmondamadou Kuns DO Work Phone: [facility]01-09-2025 16:16-0500 Respiratory rate18 /minEdmondamadou Kuns DO Work Phone: [facility]01-09-2025 16:16-0500 SaO2% (BldA) [Mass fraction]94 %Opal Sparkss DO Work Phone: [facility]01-09-2025 16:16-0500 Systolic blood vamivjbs206 mm[Hg]Opal Sparkss DO Work Phone: [facility]01-09-2025 04:08-0500 Body pehlvp12.7 kgOpal Ga DO Work Phone: [phone] [place], [place] 9311101-07-2025 12:58-0500 Body achysk206.64 cmOpal Ga DO Work Phone: [phone] [place], [place] 9311101-04-2025 13:32-0500 Diastolic blood pcqyouvx54 mm[Hg]Opal Ga DO Work Phone: [phone] [place], [place] 9311101-04-2025 13:32-0500 Heart rate58 /minOpal Ga DO Work Phone: [phone] [place], [place] 9311101-04-2025 13:32-0500 SaO2% (BldA) [Mass fraction]96 %Opal Ga DO Work Phone: [phone]01-04-2025 13:32-0500 Systolic blood lzboojsm365 mm[Hg]Opal Ga DO Work Phone: 1([phone])[address]01-04-2025 11:19-0500 Respiratory rate18 /minOpal Ga DO Work Phone: [phone] [place], [place] 9311101-04-2025 09:52-0500 Body jgqwow567.64 cmOpal Ga DO Work Phone: [phone]01-04-2025 09:52-0500 Body rmzzleuxvwj14.6 [degF]Opal Ga DO Work Phone: [phone] [place], [place] 9311101-04-2025 09:52-0500 Body qpbira00.6 kgOpal Ga DO Work Phone: [phone] [place], [place] 9311112-23-2024 10:46-0500 Body eyqofgmbusy69.01 [degF]Randi Burris MD Work Phone: [facility]12-23-2024 10:46-0500Diastolic blood ignanito25 mm[Hg]Randi Burris MD Work Phone: [address] [place], [place] [address]11112-23-2024 10:46-0500Heart rate95 /Joseph Burris MD Work Phone: [facility]12-23-2024 10:46-0500 Respiratory rate18 /Joseph Burris MD Work Phone: [facility]12-23-2024 10:46-7949KmU8% (BldA) [Mass fraction]96 %Randi Bruris MD Work Phone: [facility]12-23-2024 10:46-0500Systolic blood mm[Hg]Randi Burris MD Work Phone: [facility]12-17-2024 07:45-0500Body gsorhj221.6 cmSmitali Burris MD Work Phone: [facility]12-17-2024 07:45-0500Body mass index (BMI) [Ratio]30.7 kg/p3HmcvfuRandi Burris MD Work Phone: [facility]12-17-2024 07:45-0500Body lnftsi76.27 kgRandi Burris MD Work Phone: [facility]12-12-2024 15:20-0500Body yuezxd368.6 cmTavo Mcintyre DO Work Phone: [facility]12-12-2024 15:20-0500 Body mass index (BMI) [Ratio]30.83 kg/k8SmmltzrTavo Mcintyre DO Work Phone: [facility]12-12-2024 15:20-0500 Body xxuvnj37.64 kgWisalvatore Mcintyre DO Work Phone: [facility]12-12-2024 15:20-0500 Diastolic blood vdqzdlyj23 mm[Hg]Tavo Mcintyre DO Work Phone: [facility]12-12-2024 15:20-0500 Heart ofpp297 /Neel Mcintyre DO Work Phone: [facility]12-12-2024 15:20-0500 Systolic blood gzedaxik394 mm[Hg]Tavo Mcintyre DO Work Phone: [facility]12-09-2024 09:35-0500 Body ntwuvv245.64 cmOpal Ga DO Work Phone: [facility]12-09-2024 09:35-0500 Body mass index (BMI) [Ratio]30.7 kg/w6MnltlOpal Sparkss DO Work Phone: 1(014)[address] [place], [place] 9311112-09-2024 09:35-0500 Body dwyzil07.18 kgOpal Ga DO Work Phone: [phone]12-09-2024 09:35-0500 Diastolic blood kuzqtgqo69 mm[Hg]Opal Sparksmyranda DO Work Phone: [phone]12-09-2024 09:35-0500 Heart rate51 /Ann Ga DO Work Phone: 1([phone] [place], [place] 1315612-09-2024 09:35-0500 Respiratory rate18 /minOpal Ga DO Work Phone: [phone]45[facility]12-09-2024 09:35-0500 SaO2% (BldA) [Mass fraction]95 %Opal Ga DO Work Phone: 1(086)2-[address] [place], [place] 9311112-09-2024 09:35-0500 Systolic blood fbifpbkx991 mm[Hg]Opalamadou Sparkss DO Work Phone: 1(851)7-[address] [place], [place] 9311110-22-2024 12:47-0400 Body mtocum409.64 cmUniversity Hospitals [facility]hu[facility] Center10-22-2024 12:47-0400Body mass index (BMI) [Ratio]28.8 kg/c5UvibbgpbsUniversity Hospitals Ahuja Medical Center10-22-2024 12:47-0400Body gbmoru47.19 kgUniversity Hospitals [facility]hu[facility] Center10-22-2024 12:47-0400Diastolic blood bthoqqsd72 mm[Hg][facility] 12-27-2023 12:47-0400Heart rate78 /[facility] 12-27-2023 12:47-0400Respiratory rate16 /[facility] 12-27-2023 12:47-2946ZoL6% (BldA) [Mass fraction]99 %[facility]10-22-2024 12:47-0400Systolic blood jcwuncek675 mm[Hg][facility]07-17-2024 10:00-0400Body nthugr161.64 cmDO Opal Ga Work Phone: [facility]07-17-2024 10:00-0400 Body mass index (BMI) [Ratio]29.8 kg/m2DO Opal Ga Work Phone: [facility]07-17-2024 10:00-0400 Body ohzeah85.91 kgDO Opal Ga Work Phone: [facility]07-17-2024 10:00-0400 Diastolic blood dsvrkreh18 mm[Hg]DO Opal Ga Work Phone: [facility]07-17-2024 10:00-0400 Heart rate72 /MariAmrik Ga Work Phone: [facility]07-17-2024 10:00-0400 Respiratory rate16 /Annelise Ga Work Phone: [facility]07-17-2024 10:00-0400 Systolic blood etxpcilu531 mm[Hg]DO Opal Ga Work Phone: [facility]05-08-2024 10:30-0400 Diastolic blood ymnxughr93 mm[Hg]Tavo Mcintyre DO Work Phone: [facility] [place]05-08-2024 10:30-0400 Systolic blood cbtonzpb167 mm[Hg]Tavo Mcintyre DO Work Phone: [facility]05-08-2024 09:57-0400 Body llyvwr208.6 cmTavo Mcintyre DO Work Phone: [facility]05-08-2024 09:57-0400 Body mass index (BMI) [Ratio]29.8 kg/b1YgldbkqTavo Carodon DO Work Phone: [facility]05-08-2024 09:57-0400 Body .73 kgWisalvatore Carodon DO Work Phone: [facility]05-08-2024 09:57-0400 Heart rate60 /minWisalvatore Mcintyre DO Work Phone: [facility]01-12-2024 09:15-0500 Body lmretq924.64 cmOpal Ga Other [employer] Other 01-12-2024 09:15-0500Body mass index (BMI) [Ratio]29.7 kg/s8EsnorOpal Ga Other [employer] Other 01-12-2024 09:15-0500Body egkkcy77.46 kgEdmondamadou Tjmyranda Other [employer] Other 01-12-2024 09:15-0500Diastolic blood yearnfvi53 mm[Hg] Opal Ga Other [employer] Other 01-12-2024 09:15-0500Respiratory rate16 /minOpal Ga Other [employer] Other 01-12-2024 09:15-3254PlJ0% (BldA) [Mass fraction]97 % Opal Ga Other [employer] Other 01-12-2024 09:15-0500Systolic blood mm[Hg] Opal Ga Other [employer] Other 07-12-2023 09:15-0400Body vnvayb624.64 cmOpal Ga Other [facility] [employer] Other 07-12-2023 09:15-0400Body mass index (BMI) [Ratio] 28.11 kg/q6OomtyOpal Ga Other [facility] 07-12-2023 09:15-0400Body mljuwo62.02 kgOpal Ga Other [facility] 07-12-2023 09:15-0400Diastolic blood whkczdcu15 mm[Hg] Opal Ga Other [facility] [employer] Other 07-12-2023 09:15-0400Respiratory rate16 /minOpal Ga Other [facility] 07-12-2023 09:15-8108CuP9% (BldA) [Mass fraction]96 % Opal Ga Other [facility] [employer] Other 07-12-2023 09:15-0400Systolic blood tsrzobcn661 mm[Hg] Opal Ga Other [employer] Other 05-03-2023 09:36-0400Body iaftls750.64 cmOpal Ga Work Phone: 1(627) [phone][facility] [facility] Work Phone: 1(873) 111-499305-03-2023 09:36-0400Body mass index (BMI) [Ratio] 28.89 kg/r6IzrchOpal Ga Work Phone: mp809-1142FF-Vjfsk [place] [employer] 250 DO Work Phone: 1(112) 543-148205-03-2023 09:36-0400Body surface area Derived from formula1.91 d8WmxydOpal Ga Work Phone: mp297-3299OM-Kxaet [place] [employer] 250 DO Work Phone: 1(397) 416-803405-03-2023 09:36-0400Body mymyms69.19 kgEdmondamadou Ga Work Phone: 1(635) [phone]-Jzcur [place] [employer] 250 DO Work Phone: 1(944) [phone] 09:36-0400Diastolic blood mzulhzuy13 mm[Hg] Opal Ga Work Phone: 1(839) [phone]-Snfql [place] [facility] 250 DO Work Phone: 1(237) [phone] 09:36-0400Heart rate76 /minBryamadou Ga Work Phone: 1(386) [phone]-Thkxz [place] [facility] 250 DO Work Phone: 1(107) 247-165805-03-2023 09:36-0400Systolic blood vrrjifln240 mm[Hg] Opal Ga Work Phone: 1(339) [phone]-Ekmnb [place] [employer] 250 DO Work Phone: 1(986) [phone] 10:15-0400Body .64 cmOpal Tjmyranda Other [employer] Other 04-03-2023 10:15-0400Body mass index (BMI) [Ratio]29.7 kg/j4WrxasOpal Ga Other [employer] Other 04-03-2023 10:15-0400Body vyaneu83.46 kgOpal Ga Other [employer] Other 04-03-2023 10:15-0400Diastolic blood iwzksees57 mm[Hg] Opal Sparksmyranda Other [place] [employer] Other 04-03-2023 10:15-0400Respiratory rate16 /minOpal Daily Other [facility] [employer] Other 04-03-2023 10:15-4809IzV8% (BldA) [Mass fraction]96 % Opal Sparksmyranda Other [facility] [employer] Other 04-03-2023 10:15-0400Systolic blood xurywgpv219 mm[Hg] Opal Tjmyranda Other [facility] [employer] Other 01-04-2023 14:47-0500Body hikumd606.64 cmOpal Ga Work Phone: 1(810) [phone]-Undpc [place] [employer] 250 DO Work Phone: 1(785) 232-688901-04-2023 14:47-0500Body mass index (BMI) [Ratio] 30.18 kg/z8MzhrkOpal Ga Work Phone: 1(872) [phone]-Cwqoq [place] [employer] 250 DO Work Phone: 1(902) 679-560401-04-2023 14:47-0500Body surface area Derived from formula1.94 r1DqiomOpal Ga Work Phone: 1(241) [phone]-Cwifw [place] [employer] 250 DO Work Phone: 1(105) [phone] 14:47-0500Body vqeuez02.82 kgEdmondamadou Ga Work Phone: 1(994) [phone]-Jzyua [place] 250 DO Work Phone: 1(883) 109-753701-04-2023 14:47-0500Diastolic blood lyisahtr44 mm[Hg] Opal P Kuns Work Phone: mp302-2221VZ-Ighbj [place] [employer] 250 DO Work Phone: 1(420) [phone] 14:47-0500Heart rate72 /minOpal Sparkss Work Phone: mp252-7972SO-Jxhgh [place] [employer] 250 DO Work Phone: 1(237) 163-814601-04-2023 14:47-0500Systolic blood mqdvdbui731 mm[Hg] Opal Ga Work Phone: mp877-4053FA-Ykypm [place] [employer] 250 DO Work Phone: 1(373) 170-565001-03-2023 13:30-0500Body oynvom257.24 cmOpal Ga Other [employer] Other 01-03-2023 13:30-0500Body mass index (BMI) [Ratio] 42.82 kg/q4WrkbrOpal Ga Other [employer] Other 01-03-2023 13:30-0500Body mpdtow01.64 kgOpal Ga Other [employer] Other 01-03-2023 13:30-0500Diastolic blood mpbxyvbs22 mm[Hg] Opal Ga Other [employer] Other 01-03-2023 13:30-0500Respiratory rate16 /minOpal Ga Other [employer] Other 01-03-2023 13:30-5553MpT3% (BldA) [Mass fraction]96 % Opal Ga Other [employer] Other 01-03-2023 13:30-0500Systolic blood bcgdicnx687 mm[Hg] Opal Ga Other [employer] Other 12-06-2022 15:45-0500Body dusywu339.24 cmOpal Sparksmyranda Other [employer] Other 12-06-2022 15:45-0500Body mass index (BMI) [Ratio] 44.92 kg/i1FyxwyOpal Ga Other [employer] Other 12-06-2022 15:45-0500Body erejma84.9 kgEdmondamadou Ga Other [employer] Other 12-06-2022 15:45-0500Diastolic blood ireileus71 mm[Hg] Opal Ga Other [employer] Other 12-06-2022 15:45-0500Respiratory rate16 /minEdmondamadou Ga Other [employer] Other 12-06-2022 15:45-5358ZeZ6% (BldA) [Mass fraction]98 % Opal Ga Other [employer] Other 12-06-2022 15:45-0500Systolic blood qwnussmv150 mm[Hg] Opal Ga Other [employer] Other 11-12-2022 11:37-0500Body khuwysahhhy83.1 [degF]DO Opal Ga Work Phone: [facility]11-12-2022 11:37-0500 Diastolic blood bypozqbb74 mm[Hg]DO Opal Ga Work Phone: [facility]11-12-2022 11:37-0500 Heart rate79 /minDO Opal Ga Work Phone: [facility]11-12-2022 11:37-0500 Respiratory rate16 /Annelise Ga Work Phone: [facility]11-12-2022 11:37-0500 SaO2% (BldA) [Mass fraction]97 %DO Opal Ga Work Phone: [facility]11-12-2022 11:37-0500 Systolic blood wuyfrdap246 mm[Hg]DO Opal Ga Work Phone: [facility]11-12-2022 04:10-0500 Body oyxbqv14.5 kgDO Opal Ga Work Phone: 1(809)164-[address] [place], [place] 9311111-09-2022 16:00-0500 Inhaled oxygen flow rate1 L/Annelise Ga Work Phone: [address] [place], [place] 1315611-07-2022 13:55-0500 Body yuajxt628.64 cmDO Opal Ga Work Phone: [facility]11-05-2022 14:00-0400 Diastolic blood oixgigsm22 mm[Hg]DO Opal Ga Work Phone: [facility]11-05-2022 14:00-0400 Heart rate67 /Annelise Ga Work Phone: [facility]11-05-2022 14:00-0400 Inhaled oxygen flow rate3 L/Annelise Ga Work Phone: [facility]11-05-2022 14:00-0400 Respiratory rate19 /Annelise Ga Work Phone: [facility]11-05-2022 14:00-0400 SaO2% (BldA) [Mass fraction]99 %DO Opal Ga Work Phone: [facility]11-05-2022 14:00-0400 Systolic blood rwmqkioi561 mm[Hg]DO Opal Ga Work Phone: [facility]11-05-2022 09:41-0400 Body gvvzazoeqrp85.2 [degF]DO Opal Ga Work Phone: [facility]11-05-2022 09:38-0400 Body .64 cmDO Opal Ga Work Phone: [facility]11-05-2022 09:38-0400 Body kgDO Opal Ga Work Phone: [facility]11-03-2022 13:45-0400 Body zynzhl955.24 cmOpal Ga Other [employer] Other 11-03-2022 13:45-0400Body mass index (BMI) [Ratio] 48.42 kg/z2Mhhxq Tjmyranda Other [employer] Other 11-03-2022 13:45-0400Body kpxegh53.98 kgOpal Ga Other [employer] Other 11-03-2022 13:45-0400Diastolic blood kwbcinca80 mm[Hg] Opal Ga Other [employer] Other 11-03-2022 13:45-0400Respiratory rate16 /minOpal Tjmyranda Other [employer] Other 11-03-2022 13:45-2098PsF5% (BldA) [Mass fraction]94 % Opal Ga Other [employer] Other 11-03-2022 13:45-0400Systolic blood nvbzqelp389 mm[Hg] Opal Ga Other [employer] Other 08-08-2022 09:00-0400Body heightEdmondamadou jTmyranda Other [employer] Other 08-08-2022 09:00-0400Body mass index (BMI) [Ratio] 32.83 kg/f1WnhicOpal Ga Other [employer] Other 08-08-2022 09:00-0400Body haaafe83.26 kgOpal Ga Other [employer] Other 08-08-2022 09:00-0400Diastolic blood ukcnikol89 mm[Hg] Opal Ga Other [employer] Other 08-08-2022 09:00-0400Respiratory rate16 /minOpal Ga Other [employer] Other 08-08-2022 09:00-8118HhI8% (BldA) [Mass fraction]95 % Opal Ga Other [employer] Other 08-08-2022 09:00-0400Systolic blood lzggreut813 mm[Hg] Opal Ga Other [employer] Other 07-08-2022 10:00-0400Body heightEdmondamadou Tjmyranda Other [employer] Other 07-08-2022 10:00-0400Diastolic blood lfrhyuir60 mm[Hg] Opal Ga Other [employer] Other 07-08-2022 10:00-0400Respiratory rate16 /minOpal Ga Other [employer] Other 07-08-2022 10:00-7829KdX8% (BldA) [Mass fraction]96 % Opal Ga Other [place] [employer] Other 07-08-2022 10:00-0400Systolic blood jsijjklb284 mm[Hg] Opal Ga Other [facility] [employer] Other 06-27-2022 12:00-0400Body heightOpal Ga Other [facility] [employer] Other 06-27-2022 12:00-0400Diastolic blood nudnywmd96 mm[Hg] Opal Ga Other [facility] [employer] Other 06-27-2022 12:00-0400Systolic blood aywadhmb996 mm[Hg] Opal Ga Other [facility] [employer] Other 05-31-2022 14:17-0400Body .64 cmOpal Sparksmyranda Work Phone: 1(338) [phone]-Qsgfg [place] [employer] 250 DO Work Phone: 1(793) 807-776405-31-2022 14:17-0400Body mass index (BMI) [Ratio] 33.09 kg/o0TnkfqOpal Sparkss Work Phone: mp132-0253DU-Cruvo [place] [employer] 250 DO Work Phone: 1(959) 978-545705-31-2022 14:17-0400Body surface area Derived from formula2.02 h0HxdqxOpal Sparkss Work Phone: mp558-3183IQ-Tttap [place] [employer] 250 DO Work Phone: 1(448) 123-865805-31-2022 14:17-0400Body igqtpk93.99 kgOpal Sparksmyranda Work Phone: mp547-9177HT-Drthz [place] [employer] 250 DO Work Phone: 1(932) 408-204605-31-2022 14:17-0400Diastolic blood cfdkogbs84 mm[Hg] Opal Ga Work Phone: mp005-7361GC-Wmfcl [place] [employer] 250 DO Work Phone: 1(622) 821-124205-31-2022 14:17-0400Heart rate54 /minOpal Sparkss Work Phone: mp076-2840QW-Gmcoe [place] [employer] 250 DO Work Phone: 1(512) [phone] 14:17-0400Systolic blood qusqddvd179 mm[Hg] Opal Ga Work Phone: mp135-9164MR-Jemwz [place] [employer] 250 DO Work Phone: 1(202) 894-514511-15-2021 09:30-0500Body heightOpal Ga Other [employer] Other 11-15-2021 09:30-0500Body mass index (BMI) [Ratio] 33.67 kg/z5KujqvOpal Ga Other [employer] Other 11-15-2021 09:30-0500Body piaugf65.62 kgOpal Ga Other [employer] Other 11-15-2021 09:30-0500Diastolic blood mm[Hg] Opal Ga Other [employer] Other 11-15-2021 09:30-0500Respiratory rate16 /minOpal Ga Other [employer] Other 11-15-2021 09:30-2957OuG6% (BldA) [Mass fraction]96 % Opal Tjmyranda [facility] Other 11-15-2021 09:30-0500Systolic blood norblxhl795 mm[Hg] Opal Ga Other [place] [employer] Other 11-01-2021 15:22-0400Body uncibj124.64 cmOpal Myers Daily Work Phone: 1(555) [phone]-Sxtew [place] [facility] 250 DO Work Phone: 1(505) 949-858611-01-2021 15:22-0400Body mass index (BMI) [Ratio] 33.25 kg/s5AvdbhOpal Ga Work Phone: 1(383) [phone]-Jlmnb [place] [facility] 250 DO Work Phone: 1(960) 225-850611-01-2021 15:22-0400Body surface area Derived from formula2.03 u6Cgxqq [place] Ga Work Phone: 1(987) [phone]-Akmdx [place] [facility] 250 DO Work Phone: 1(561) 389-100011-01-2021 15:22-0400Body zpipbj06.44 kgOpal Myers Daily Work Phone: 1(337) [phone]-Wqmce [place] [facility] 250 DO Work Phone: 1(446) 390-417111-01-2021 15:22-0400Diastolic blood iabezjdx94 mm[Hg] Opal Ga Work Phone: 1(560) [phone]-Ztrtu [place] [facility] 250 DO Work Phone: 1(660) 311-766011-01-2021 15:22-0400Heart rate56 /minOpal Ga Work Phone: 1(906) [phone]-Vkdmy [place] [facility] 250 DO Work Phone: 1(296) 614-807411-01-2021 15:22-0400Systolic blood piaxunrj828 mm[Hg] Opal P Kuns Work Phone: 1(560) [phone]-Ajopr [place] [facility] 250 DO Work Phone: Encounters Encounter DateEncounter TypeCare ProviderFacilityStart: 38-92-5574Wgowf Massouh MD-[facility] Work Phone: Start: 12-30-2024 End: 64-71-4237hktpprhapqEjbjl Daily DO Work Phone: -[facility] [place] [facility]: 12-30-2024 End: 52-08-3827Mtqx Vinton M DO-[facility] [place] [facility]ospStart: 12-27-2024 End: 49-69-2128vnsloptfjuOmnrm Kuns DO Work Phone: -[facility] [place] [facility]ospStart: 12-27-2024 End: 77-16-2509Dodhuqvh ReferredMelissa Vidya Marker DO-[facility] [place] [facility]ospStart: 30-26-5429Awc-patient / Non-visit(Maki) Cristy FATIMA-[facility] Work Phone: Start: 12-27-2024 End: 42-79-4729Bjhiwli Jane Marker DO-LAB [facility] [place] [facility]ospStart: 12-12-2024 End: 34-21-5544Aqonkesawe and management of inpatientFrederbronson Mccartney MD-[facility] Work Phone: Start: 12-12-2024 End: 60-83-4352Aalnl Prasad MD-[facility] Work Phone: Start: 12-04-2024 End: 18-93-5001Bsoklid encounter procedureElenandrés Montoya BUNDLE CUTTER-[facility] [place] Work Phone: Start: 12-04-2024 End: 37-46-6811YemopKeely Montoya BUNDLE CUTTER-[facility] [place] Work Phone: Start: 12-04-2024 End: 50-13-3682tbfivjnokcCVUXQJTWI NO [facility]ILYFire[facility] Work Phone: Start: 11-29-2024 End: 97-46-8838Jdetpyn encounter procedureKeely Montoya [facility] Work Phone: Start: 11-29-2024 End: 12-28-9697ZkrtqKeely Montoya [facility] Work Phone: Start: 11-29-2024 End: 30-35-8415rviyfutpvxKPMKBXYWS NO [facility] Work Phone: Start: 11-06-2024 End: 92-92-4091zbqakfqgwgWodwf Tjs DO Work Phone: [facility] Work Phone: Start: 11-06-2024 End: 08-96-2703Kcpwnrv encounter procedureKeely Montoya [facility] Work Phone: start: 11-06-2024 End: [facility]50[facility]8740[facility] Work Phone: start: 10-31-2024 End: 40-95-6243TtnlJovany Stovall MD-CT [facility] [place] Work Phone: Start: 10-31-2024 End: 52-58-6430orhngofknhAygdw Kuns DO Work Phone: [facility] Work Phone: Start: 10-31-2024 End: 83-06-6730Xwmsljm encounter procedureJovany Stovall MD-CT [facility] [place] Work Phone: Start: 10-07-2024 End: 35-78-5069Wyitbakwus and management of inpatientAmanda M Kiera BUNDLE CUTTER Work Phone: [facility] Work Phone: Start: 10-07-2024 End: 48-24-7602Qlcoont R. Frings DO-[facility] Work Phone: Start: 36-79-7848Vyw-patient / Non-visitDafrederic Stovall [facility] Work Phone: start: 20-91-6298EeyxJovany Stovall MD[facility] Work Phone: start: 53-31-1397Jvq-patient / Non-visitMickari Reynolds MD[facility] Work Phone: Start: 81-15-9226WijvwbcFrankie Reynolds MDUn[facility] Work Phone: Start: 03-41-0849Qaf-patient / Non-visitDafrederic Stovall MD[facility] Work Phone: start: 07-32-9036nyqdinegsmm encounterMelvi Fink Kiera BUNDLE CUTTER Work Phone: [facility] Work Phone: Start: 97-52-1508Lvbials R. Estuardongs DO-3 [place] [facility] Work Phone: Start: 10-04-2024 End: 77-89-9788igroeweabfQdrlag M Kiera BUNDLE CUTTER Work Phone: [facility] Work Phone: Start: 10-04-2024 End: 99-56-6454Etwnyak encounter procedureMickari Reynolds MDUn[facility] Work Phone: Start: 10-04-2024 End: 17-66-0624AdlzzmtFrankie Reynolds MDUn[facility] Work Phone: Start: 09-24-2024 End: 85-70-3832Ikbxycl encounter procedureW Be Mcintyre [facility] Work Phone: Start: 09-24-2024 End: 09-24-2024W Be Mcintyre DO-Lab [facility] Work Phone: Start: 09-24-2024 End: 54-60-8253ugaljhmtlmJflmub M Kiera BUNDLE CUTTER Work Phone: [facility] Work Phone: Start: 09-18-2024 End: 05-78-6294hpmdlakgkwDdtlna Scott Kiera BUNDLE CUTTER Work Phone: [facility] Work Phone: Start: 09-18-2024 End: 81-99-0904Tysnkds encounter procedureKeely [facility] Work Phone: start: 09-18-2024 End: 75-48-3435Xnpcc [facility] Work Phone: start: 09-14-2024 End: 25-57-5705kenqhioibbYiedwd M Kiera BUNDLE CUTTER Work Phone: [facility] Work Phone: Start: 09-14-2024 End: 97-94-1447Kkxuies encounter procedureOpal Ga P DO-Lab [facility] Work Phone: Start: 09-14-2024 End: 25-17-2966Kjqwm Kuns P DO-Lab [facility] Work Phone: Start: 08-27-2024 End: 71-90-5436Oqhfzfo encounter procedureBryamadou Sparkss P DO-Lab [facility] Work Phone: Start: 08-27-2024 End: 38-21-0091Xrsqt Kuns P DO-Lab [facility] Work Phone: Start: 08-27-2024 End: 94-76-9162bjyecrmhcsNnzwt KunsFacility:[facility] Start: 71-49-4001qwkunquiabHihyyxjlsRichard PompaFacility:Infectious DiseaseStart: 35-05-1363tgsdveyoowZqgnqc J GaleaFacility:EU [place]kyStart: 07-23-2024 End: 04-04-0144nvyvqhsajnBmpdzo R BuntingFacility:[facility] Hospitaltart: 07-23-2024 End: 90-16-0177Ylszbkn encounter procedureDarrin Ray [facility] DO-Lab [facility] Work Phone: Start: 07-23-2024 End: 61-17-2594Drzesf Ray [facility] DO-Lab [facility] Work Phone: Start: 2024 End: 69-48-3093Lpesmnod Result EncounterFredric H Itjo annkowitz DO Work Phone: n[facility] External Department UnsolicitedStart: 2024 End: 55-89-4903Ncoddtzb Result EncounterFredric H Itzkowitz DO Work Phone: [facility] External Department UnsolicitedStart: 2024 Non-patient / Non-visitMichael Myranda Reynolds MD-[facility] Work Phone: Start: 64-13-9321Flkltx Kiera BUNDLE CUTTER Work Phone: [facility] Work Phone: Start: 07-12-2024 End: 65-58-2970Tzuajkbsur and management of inpatientAmanda M Kiera BUNDLE CUTTER Work Phone: [facility] Work Phone: Start: 07-12-2024 End: 05-43-2814Hugptf Kiera BUNDLE CUTTER Work Phone: [facility] [place] [facility] Work Phone: Start: 07-12-2024 End: 63-98-8100hqswnehzedKIAPKUJCandy HAMPTONRAFacility:CD:[id number]: 07-11-2024 End: 23-06-0960ctrwkvcwqbUhltbuwqpRichard Mcclellancility:Infectious DiseaseStart: 07-09-2024 End: 85-34-5462btuaxaqjqnXzpkqe R [facility] Work Phone: Start: 07-09-2024 End: 21-68-4130Objsdcje ReferredDarrin Ray Bunting DO-Lab [facility] Work Phone: Start: 07-09-2024 End: 90-47-3835Hfpkrv Bunting DO Work Phone: [facility]-Lab [facility] Work Phone: Start: 07-02-2024 End: 52-34-3478murwrcsebjKiseiq R [facility] Work Phone: Start: 07-02-2024 End: 69-74-3405Opoalbfw ReferredDarrin Ray Bunting DO-Lab [facility] Work Phone: Start: 07-02-2024 End: 10-80-8784Uydtxy Bunting DO Work Phone: [facility]-Lab [facility] Work Phone: Start: 06-26-2024 End: 28-50-4332jcimoexsqlZtqzifgjfRichard Mcclellancility:Infectious DiseaseStart: 06-25-2024 End: 35-94-9966qxsrvicrbrFhqps Kuns DO Work Phone: [facility] Work Phone: Start: 06-25-2024 End: 67-18-1017Zjwzydjr ReferredDarrin Ray Bunting DO-Lab [facility] Work Phone: Start: 06-25-2024 End: 79-39-9621Qwvco Kuns DO Work Phone: [facility]-Lab [facility] Work Phone: Start: 06-18-2024 End: 65-07-5561ujqvgbarnnYoteh Kuns DO Work Phone: [facility] Work Phone: Start: 06-18-2024 End: 91-22-9254Smanxnnb ReferredBryamadou Sparkss DO Work Phone: [facility]-Lab [facility] Work Phone: Start: 06-18-2024 End: 23-05-6265Pttmeut encounter procedureDaalannaolinda Aguirre DO-Lab [facility] Work Phone: Start: 06-18-2024 End: 80-96-9388Mjoos Kuns DO Work Phone: [facility]-Lab [facility] Work Phone: Start: 06-13-2024 End: 27-27-6235mqmdkpwsszGmcar Tjs DO Work Phone: [facility] Work Phone: Start: 06-13-2024 End: 45-48-6961Kngkxyzo ReferredBryamadou Sparkss DO Work Phone: [facility]-Lab [facility] Work Phone: Start: 06-13-2024 End: 39-66-2992Qoelgez encounter procedureBryamadou Sparkss DO Work Phone: [facility]-Lab [facility] Work Phone: Start: 06-13-2024 End: 17-15-6930Fwela Kuns DO Work Phone: [facility]-Lab [facility] Work Phone: Start: 06-12-2024 End: 63-36-7252osqqtazhabHfqsv M Lizzi DO Work Phone: [facility] Work Phone: Start: 06-12-2024 End: 72-80-6149Rwjndrq encounter procedureOpal Ga DO Work Phone: [facility]-Lab [facility] Work Phone: Start: 06-12-2024 End: 07-04-5231Rinkx Lizzi DO Work Phone: [facility] Work Phone: Start: 06-11-2024 End: 62-54-7919kuwmlbdrzbKekdw M Lizzi DO Work Phone: [facility] Work Phone: Start: 06-11-2024 End: 26-25-7368Huoymzf encounter procedureOpal Ga DO Work Phone: [facility]-Lab [facility] Work Phone: Start: 06-11-2024 End: 42-74-4185Xgvjr Lizzi DO Work Phone: [facility]-Lab [facility] Work Phone: Start: 06-07-2024 End: 90-77-5022ddqwsrukkoDtowti Noel Saltzman BUNDLE CUTTER-CNPFacility:Infectious DiseaseStart: 06-06-2024 End: 69-54-9946cunnnqrxnmUahus M Lizzi DO Work Phone: [facility] Work Phone: Start: 06-06-2024 End: 10-69-3836Cgtydviq ReferredMarocs Martin DO Work Phone: [facility]-Lab [facility] Work Phone: Start: 06-06-2024 End: 30-44-7174Lluafow encounter procedureBryamadou Kuns DO Work Phone: [facility] Work Phone: Start: 06-06-2024 End: 06-18-1485Bsyej Lizzi DO Work Phone: [facility] Work Phone: Start: 06-04-2024 End: 04-91-5949aqyvesdmytAdmiwy Noel Saltzman BUNDLE CUTTER-CNPFacility:Infectious DiseaseStart: 06-01-2024 End: 05-10-2223fswreabfxjVpukcp TannaFacility:[place]Start: 05-28-2024 End: 62-58-3906psxdwsutwkEbckr M Lizzi DO Work Phone: [facility] Work Phone: Start: 05-28-2024 End: 50-70-0591Qhgglpp encounter procedureJaalondra Martin DO Work Phone: [facility] Work Phone: Start: 05-28-2024 End: 50-53-3798Cvgdm Lizzi DO Work Phone: [facility] Work Phone: Start: 36-60-6155hxlpoimtrbDozhg LueFacility:[place]kyStart: 05-21-2024 End: 26-10-7826gzxvxhczkxZseodl Noel Saltzman BUNDLE CUTTER-CNPFacility:Infectious DiseaseStart: 05-21-2024 End: 29-88-3793pbtttxtlgrEppkx M Lizzi DO Work Phone: [facility] Work Phone: Start: 05-21-2024 End: 87-83-9536Ncvbvvg encounter procedureJaalondra Martin DO Work Phone: [facility] Work Phone: Start: 05-21-2024 End: 24-29-3398Mcrhx Veronica DO Work Phone: [facility] Work Phone: Start: 05-14-2024 End: 16-16-8645atlouwrtuySojdr Scott Martin DO Work Phone: [facility] Work Phone: Start: 05-14-2024 End: 60-66-0577Omzgmkja ReferredJared Veronica DO Work Phone: [facility] Health Work Phone: Start: 05-14-2024 End: 76-43-6718Qcfuewj encounter procedureJared Veronica DO Work Phone: [facility] Work Phone: Start: 05-14-2024 End: 98-43-7726Xccpx Veronica DO Work Phone: [facility] Work Phone: Start: 05-10-2024 End: 56-05-3858ybsqywwmmvRcfckm Noel Saltzman BUNDLE CUTTER-CNPFacility:Infectious DiseaseStart: 05-07-2024 End: 25-37-0395unbnsxhvspWknky M Veronica DO Work Phone: [facility] Work Phone: Start: 05-07-2024 End: 24-88-0501Ydgtzyg encounter procedureJared Veronica DO Work Phone: [facility] Work Phone: Start: 05-07-2024 End: 31-34-6220Vrcpi Veronica DO Work Phone: [facility] Work Phone: Start: 04-30-2024 End: 40-29-3788qdngetvrgoUqtzv M Lizzi DO Work Phone: [facility] Work Phone: Start: 04-30-2024 End: 30-90-7687Bwfsrgy encounter procedureJared Veronica DO Work Phone: [facility] Work Phone: Start: 04-30-2024 End: 27-08-8701Efart Lizzi DO Work Phone: [facility] Work Phone: Start: 04-26-2024 End: 46-02-6869Nevssrm nursing facility care/day 25 minutesThkhurram Gabriel DPM Work Phone: Dr. Otto Bingham LLCComment on above:Pain due to onychomycosis of toenail of left foot (Primary Dx); Pain due to onychomycosis of toenail of right foot; Localized edema; Decreased pedal pulses; pan puller (current) use of anticoagulantsStart: 04-23-2024 End: 83-56-5230oqkzqsbsbgFttva M Lizzi DO Work Phone: [facility] Work Phone: Start: 04-23-2024 End: 22-39-8351Wlreiaj encounter procedureJared Veronica DO Work Phone: [facility] Work Phone: Start: 04-23-2024 End: 64-76-1864Djpef Lizzi DO Work Phone: [facility] Work Phone: Start: 04-15-2024 End: 52-71-8123Tyrwafmbzt and management of inpatientAtheer R Moises TIDWELL [facility]: 75-64-5734How-patient / Non-visitJared Veronica DO Work Phone: [facility] Work Phone: Start: 91-90-8715Kruma Veronica DO Work Phone: [facility] Work Phone: Start: 04-13-2024 End: 74-69-9670Xnm-patient / Non-visitJared Veronica DO Work Phone: [facility] Work Phone: Start: 04-13-2024 End: 22-76-8145Kmfpu Veronica DO Work Phone: [facility] Work Phone: Start: 93-60-3559Hab-patient / Non-visitJared Veronica DO Work Phone: [facility] Work Phone: Start: 18-49-7420Aeldw Veronica DO Work Phone: [facility] Work Phone: Start: 04-03-2024 End: 90-66-7355Xsyyzuv encounter procedureJared Veronica DO Work Phone: [facility] [place] Work Phone: Start: 04-03-2024 End: 15-54-7472Qzrvm Veronica DO Work Phone: [facility] [place] Work Phone: Start: 04-03-2024 End: 05-26-5809eaoqaewjjoZihkb M Veronica DO Work Phone: [facility] Work Phone: Start: 03-10-2024 End: 59-89-0714Hwngnfxidj and management of inpatientOpal Ga DO Work Phone: [facility] [place] [facility] Work Phone: Start: 03-10-2024 End: 32-06-3328Vbftu Veronica DO Work Phone: [facility] [place] [facility] Work Phone: Start: 03-02-2024 End: 92-38-5462whyrsyqwxxHsfemm R BuntingFacility:[facility]tart: 03-02-2024 End: 06-01-5086Yoyoyaza ReferredOpal Ga DO Work Phone: [facility] [place] Work Phone: Start: 02-21-2024 End: 02-81-4826Xfdsswgixk and management of inpatientSmitali Burris MD Work Phone: strz ICU STEPDOWN TELEMETRY 4KComment on above: Longstanding persistent atrial fibrillation (HCC) (Primary Dx); Cardiomyopathy, unspecified type (HCC); Lumbar stenosis with neurogenic claudicationStart: 02-16-2024 End: 68-55-7829olwhvyhaabKCMNXPOBon Secours Health System AmbulatoryStart: 02-16-2024 End: 69-65-3863Dkrvhqyqj for preprocedural cardiovascular examinationBon Secours Health System AmbulatoryStart: 02-16-2024 End: 23-10-6415Ajmzrk outpatient visit 25 minutesNew [facility] DO Work Phone: [facility] on above:Preop cardiovascular exam; Heart failure, NYHA class 2; Chronic atrial fibrillation (Multi); 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; Primary hypertension; Mixed hyperlipidemia; BMI 30.0-30.9,adult; Former smokerStart: 02-16-2024 End: 11-14-1544Fsfnfva encounter statusTavo Mcintyre DO Work Phone: [facility]Start: 04-92-0021Jto- patient / Non-visitEdmondamadou Ga DO Work Phone: [facility] Work Phone: Start: 02-13-2024 End: 41-11-1388Ibyiihspq for other preprocedural examinationOpal Ga DO Work Phone: [facility]: 02-13-2024 End: 80-61-1335Cfviajr encounter procedureOpal Ga DO Work Phone: [facility] Work Phone: Start: 12-30-2023 End: 17-08-5762Jlttcja encounter procedureOpal Ga DO Work Phone: [facility] [place] Work Phone: Start: 12-27-2023 End: 22-85-6946aavezetdezHhybeliidBarberton Citizens Hospital Work Phone: Start: 12-27-2023 End: 89-26-9544Yzchfbc encounter procedureLevine [facility] Work Phone: Start: 10-24-2023 End: 14-41-5647eyqmxclzdnFjvshhs Vytautas Giedraitis MDFacility:PM [facility] Start: 10-10-2023 End: 11-88-2157nhqdtlausjCaviofl Vytautas Giedraitis MDFacility:[facility] [place] Start: 09-21-2023 End: 37-01-3560uvqyveaxyoNM Opal Ga Work Phone: [facility] Work Phone: Start: 09-21-2023 End: 14-38-3880Hvvzcwa encounter procedureDO Opal Ga Work Phone: [facility] Family [facility] Work Phone: Start: 09-12-2023 End: 19-12-5158tokmssmzckBJ Opal Ga Work Phone: [facility] Work Phone: Start: 09-12-2023 End: 63-39-7368Nckfhfy encounter procedureDO Opal Ga Work Phone: [facility] Work Phone: Start: 07-19-2023 End: 43-04-8000Oxfdhgf encounter procedureDO Opal Ga Work Phone: [facility] Work Phone: Start: 07-13-2023 End: 09-66-4696Mffepi outpatient visit 25 minutesBeckiscott Whitmore Francisco Javier Work Phone: uh [facility] HospitalComment on above:Chronic atrial fibrillation (Multi); Essential hypertension, benign; Heart failure, NYHA class 2 (Multi); Hyperlipidemia, unspecified hyperlipidemia typeStart: 03-18-2023 End: 99-79-0722fjyixdssavFyggv Kuns Other [employer] Other Start: 58-37-2763Rjxwan outpatient visit 25 minutes Opal [facility] [place]Start: 12-31-2022 End: 43-87-6563bnpsmtmyoyHbgpj Kuns Other [employer] Other Start: 32-82-1708Xpxjrobtx encounterOpal [facility] [place]Start: 12-06-2022 End: 36-01-6396hcvjqadpixHbzpw Kuns Other [employer] Other Start: 66-72-1882Zlbdmftlv encounterOpal SparksRu [facility] [place]Start: 11-30-2022 End: 76-32-9527vyllaewieiTpsbh Kuns Other [facility] [employer] Other Start: 74-06-5740Cthhakteq encounterBryamadou [facility] CastaliaStart: 80-88-9331iyqkxhsmhpDCNXXQG HALKER .Facility:H1 Start: 09-15-2022 End: 95-79-7873tbuvzsvqbpLosdy Kuns Other [place] [employer] Other Start: 33-05-8044Pmovjb outpatient visit 15 minutes Op[facility] [place]Start: 91-55-4157Pdwqe UpdateOpal Ga Work Phone: [phone]-Zymaz [facility] [facility] DO Work Phone: Start: 15-25-4078Kmtxeonpa encounterBryamadou VenessaG [facility] [place]Start: 09-08-2022 End: 28-68-5564jwnrcskivjUX Opal Ga Work Phone: [facility] Work Phone: Start: 09-08-2022 End: 11-33-3206Znwtlfz encounter procedureDO Opal Ga Work Phone: [facility] Work Phone: Start: 05-78-1393Iu RenewalOpal Sparkss Work Phone: [phone]-Csqoh [facility] [facility] DO Work Phone: Start: 07-08-2022 End: 82-66-8202fxhtyzmyswDIZCLFFLJCEY LAKSHMIPATHY .Facility:C3Ouwip: 07-07-2022 Office outpatient visit 15 minutesOpal Sparkss Work Phone: [phone]-Ueiqg [facility] [facility] DO Work Phone: Start: 75-16-1353tyokygqqunTh. Bryan Keith Tjmyranda Facility:[id number]: 06-07-2022 End: 48-54-0594estwnxxpbfDzlxm Kuns Other [employer] [facility] [employer] Other Start: 88-17-6218Qwpknv outpatient visit 25 minutes Opal TjmyrandaReece [facility] [place]Start: 06-01-2022 End: 49-88-5453mddhycujmeGocme Kuns Other [employer] [facility]miss[facility] [employer] Other Start: 07-38-5781Iazkhopft encounterEdmondamadou GaReece [facility] CastaliaStart: 05-13-2022 End: 76-10-9050gqqdtlwsedPFQNCONH MURPHYFacility:G7Ujpwt: 05-11-2022 End: 46-42-3341mbiytxobxpFuvmx Kuns Other [employer] [facility]miss[facility] [employer] Other Start: 81-63-0799Ncytdzufd encounterEdmondamadou GaArbour-HRI Hospital [place]Start: 04-15-2022 End: 08-55-6801cbxdmrhzkvJC TROY BRAMBILA .Facility:P6Stcdw: 04-12-2022 End: 67-60-7806pvskputufiXM Bryan Kuns Work Phone: [facility] Work Phone: Start: 04-12-2022 End: 12-42-6050Wilerbhxwn RecurringDO Opal Ga Work Phone: [facility] [place] Work Phone: start: 03-30-2022 End: 93-74-5292tyrpbypyhuPT TROY BRAMBILA .Facility:U0Qbfrv: 78-96-5179Hw RenewalOpal Ga Work Phone: [phone]-Jvafs [facility] [facility] DO Work Phone: Start: 30-34-3923fnjrrnhjtyVqutia Ibrahim Facility:[id number]: 84-46-3328yjkluptlaeWcmbulatoryMs. Enedelia GomezFacility: Start: 26-53-9812Yqgeibo encounter procedureOpal Ga Work Phone: [phone]-Bfxmp [facility] [facility] DO Work Phone: Start: 99-77-5907Ufpkr UpdateOpal Ga Work Phone: [phone]-Hqzga [facility] [facility] DO Work Phone: Start: 81-63-0375Gymllimtlp RecurringDO Opal Ga Work Phone: [facility] [place] Work Phone: start: 03-11-2022 End: 16-12-3255jkwcftqtbvJJ Opal Ga Work Phone: [facility] Work Phone: Start: 03-11-2022 End: 94-26-9402Yduahfj encounter procedureDO Opal Ga Work Phone: [facility] [place] Work Phone: Start: 12-33-7753BRY, Provider: Enedelia Mix, Status: Pen, Time: 2:30 PMOpal Ga Work Phone: [phone]-Axgxv [facility] [facility] DO Work Phone: Start: 84-94-8559Ysnzzg outpatient visit 25 minutes Opal Ga Work Phone: [phone]-Nxeqd [facility] [facility] DO Work Phone: Start: 12-92-3233Hmopkdz encounter procedureOpal Sparkss Work Phone: [phone]-Robml [facility] [facility] DO Work Phone: Start: 83-47-8476scyzkpzyjgMkDane Gomez Facility:[id number]: 03-09-2022 End: 14-16-5344kfpvgktnipSasjo Kuns Other noC[employer] Other Start: 20-58-3972Ltafyp outpatient visit 15 minutes Opal SparksmyrandaReece [facility] Cast[place]Start: 03-04-2022 End: 42-60-9406gmtvnrqpdjTfyzz Kuns Other [facility] [employer] Other Start: 66-57-7550Wtaivhtcz encounterBryamadou DailyArbour-HRI Hospital CastaliaStart: 46-53-0141Uv RenewalBryan P Kuns Work Phone: [phone]-OclglLakeWood [facility] Center[facility] [facility] DO Work Phone: Start: 03-03-2022 End: 13-84-7341okgbubwfjqTxjyg Kuns Other [place] [employer] Other Start: 44-33-7127Mhmfaetuh encounterOpal DailyReece [facility] [place]Start: 02-18-2022 End: 86-89-2427kunebahazvJE TROY VelaFacility:J4Eietr: 73-23-5671Pu RenewalBryan P Kuns Work Phone: [phone]-VtgwkLuverne Medical Center 250 DO Work Phone: Start: 02-09-2022 End: 55-23-8702bygsptkdcvKndvy Kuns Other [employer] Other Start: 66-71-7069Bcboxy outpatient visit 25 minutes Opal SparksmyrandaReece [facility] [place]Start: 01-13-2022 End: 48-66-8456dyjswfhhmfSlxmh Kuns Other [employer] Other Start: 60-39-9239Qmrknlsfo encounterOpal Coleman [facility] [place]Start: 29-45-4523vyohonrntyEf. Opal Ga Facility:[id number]: 74-44-9903mgefuzxukeHcwcax IbrahimFacility:[id number]: 81-27-6263ofnoxteellGn. Opal GaFacility:[id number]: 01-09-2022 End: 61-40-9645Davcamqgeb and management of inpatientDO Opal Ga Work Phone: [facility] [place] [facility] SurgStart: 01-07-2022 End: 27-91-2227zadcaeagodNpabk Kuns Other [employer] Other Start: 91-66-2336Isnhic outpatient visit 25 minutes Opal GaReece [facility] [place]Start: 12-25-2021 End: 55-76-9633fjngqnznumDisno Kunmyranda Other [employer] Other Start: 84-11-3392Rpjyuowbs encounterOpal GaReece [facility] Cast[place]Start: 12-17-2021 End: 64-88-3454skrlrtrvqqVM TROY BRAMBILA .Facility:H1Trxaz: 12-17-2021 End: 79-63-3617nhoipikiilNY Opal Ga Work Phone: [facility] Work Phone: Start: 12-17-2021 End: 83-37-3253Sqgxffb encounter procedureDO Opal Ga Work Phone: [facility] [place]Start: 12-01-2021 End: 73-50-9418plyrmhlsqqHX TROY S BRAMBILA .Facility:I5Vsqua: 11-12-2021 End: 81-15-7077pwwrprptyfUO NELSY GAFacility:K2Eytze: 10-12-2021 End: 56-24-3374jwmfjoyqpnPfmjp Kuns Other [employer] Other Start: 90-06-2825Eccbzj outpatient visit 15 minutes [facility] [place]Start: 09-28-2021 End: 40-71-6053itmvrsxirdZqxmp Kuns Other [employer] [employer] Other Start: 22-50-5502Yerymafti encounterOpal Coleman [facility] [place]Start: 09-28-2021 End: 30-35-2367Ushbyawnmn RecurringDO Opal Sparksmyranda Work Phone: [facility] Therapy [place]Start: 09-11-2021 End: 59-15-5689wskmdqlrsdHkjhy Kuns Other [employer] [facility] [employer] Other Start: 79-24-9208Fupxgxx evaluation of patient and reportOpal GaReece [facility] CastaliaStart: 49-89-4691Bplpcusbc encounter Opal GaReece [facility] [place]Start: 09-10-2021 End: 23-87-8676duwjxytjkhBJ BRETT KUNSaint [facility] [employer] Other Start: 09-04-2021 End: 65-79-8420nlabmpazeyQqexs Kuns Other [place] [employer] Other Start: 23-21-0621Swyoengmf encounterOpal Coleman [facility] [place]Start: 08-31-2021 End: 32-79-2086ergkpggymkXzrxd Kuns Other [employer] Other Start: 81-51-0472Dycozq outpatient visit 25 minutes Op[facility] [place]Start: 08-17-2021 End: 07-82-2074corrufxlbkAV TROY S МАРИНА .Facility:D9Sucyq: 08-13-2021 End: 75-07-3305nadxkpxunzUF TROY Myranda BRAMBILA .Facility:K2Nnrqf: 54-26-5210Noszxn outpatient visit 15 minutesBryamadou Ga Work Phone: [phone]-WpxrkEssentia Health 250 DO Work Phone: Start: 76-49-3062hwvcdsejmlOlDane Parker Daily Facility:[id number]: 07-28-2021 End: 86-19-9045urxmsqpyxaJD TROY Whitmore BRAMBILA .Facility:L1Cbuty: 05-25-2021 End: 90-66-9746tbfwiyqotvUvdtn Kuns Other [employer]Kin[employer] Other Start: 08-34-9002Bkgthezwk encounterOpal CliffordG Family Medicine [place]Start: 32-03-5206Ur RenewalOpal Ga Work Phone: [phone]-HoxirRichard [place]ille [address] DO Work Phone: Start: 03-11-2021 End: 76-98-7452pszqzgwlvlXpchl Kuns Other [employer] Other Start: 92-61-2718Wsfxfheoc encounterOpal Coleman [facility] [place]Start: 03-05-2021 End: 31-73-6306zxxtelxidfTeycp Kuns Other [employer] Other Start: 16-12-2996Vndiljlqs encounterOpal CliffordG Family Medicine [place]Start: 04-31-8882Fh RenewalOpal Sparkss Work Phone: [phone]-KqjccMay[facility] 250 DO Work Phone: Start: 01-19-2021 End: 18-41-4461xkldqnvpkpJnhuf Kuns Other [employer] Other Start: 76-85-0952Pdmkge outpatient visit 25 minutes Opal GaFPG [facility] [place]Start: 90-61-4660Zp RenewalOpal Myers Daily Work Phone: [phone]-Hitng [facility] [facility] DO Work Phone: Start: 80-55-9934Ax RenewalOpal Sparksmyranda Work Phone: [phone]-Hwnsw [facility] [facility] [place] Work Phone: Start: 80-46-1409Bdaqtz outpatient visit 15 minutes Opal Ga Work Phone: [phone]-Gynyp [facility] [facility] DO Work Phone: Start: 29-51-4018Sanjfvq encounter procedureBryamadou Ga Work Phone: [phone]-Zdnze [facility] [facility] DO Work Phone: Procedures DateProcedureProcedure DetailPerforming ClinicianStart: 94-99-5332Bbiba culture Opal Ga DO Work Phone: Start: 87-11-4345Wcawa cultureOpal Ga DO Work Phone: Start: 31-98-7129TW cervical spine without contrast PHYSICIAN NO FAMILYStart: 70-70-4772AC of head without contrastPHYSICIAN NO FAMILYStart: 48-46-3133Ftawy chest X-rayPHYSICIAN NO FAMILYStart: 29-71-1244QNB of lumbar spine with contrastPHYSICIAN NO FAMILYStart: 34-71-8420Mqhf energy X- ray absorptiometryPHYSICIAN NO FAMILYStart: 75-32-9921NP of head without contrastOpal Ga DO Work Phone: Start: 13-36-1200QU of lumbar spine without contrast Opal Ga DO Work Phone: Start: 67-96-1343F-ray of lumbar spine, six views including bending viewsBryan Kuns DO Work Phone: Start: 85-80-5742Xiufn cultureAmanda Kiera BUNDLE CUTTER Work Phone: Start: 69-00-2734PQ of head without contrastAmanda Kiera BUNDLE CUTTER Work Phone: Start: 34-40-5454Vfodx chest X-rayAmanda Kiera BUNDLE CUTTER Work Phone: Start: 33-22-3874Gcppdtww identified in Blood by CultureBryan Tjs DO Work Phone: Start: 92-22-3546Ffaji Screen MRSA/MSSABryan Tjs DO Work Phone: Start: 59-38-6462Rgadm cultureAmanda Kiera BUNDLE CUTTER Work Phone: Start: 67-20-7599Jcyhjv Kiera BUNDLE CUTTER Work Phone: Start: 10-06-2024 End: 68-65-7969KK of head without contrastAmanda Kiera BUNDLE CUTTER Work Phone: Start: 75-70-4171MK cervical spine without contrast Melvi Kiera BUNDLE CUTTER Work Phone: Start: 31-37-0309OV of facial bones without contrast Melvi Kiera BUNDLE CUTTER Work Phone: Start: 81-32-2804MG of head without contrastAmanda Kiera BUNDLE CUTTER Work Phone: Start: 72-64-1732Petwk cultureAmanda Kiera BUNDLE CUTTER Work Phone: Start: 72-48-9647Gbuzl cultureAmanda Kiera BUNDLE CUTTER Work Phone: Start: 53-97-4066Cabfc chest X-rayAmanda Kiera BUNDLE CUTTER Work Phone: Start: 30-00-9872Xatymrp microbial cultureAmanda Kiera BUNDLE CUTTER Work Phone: Start: 07-42-3662Zafvvvhvj microbial cultureAmanda Kiera BUNDLE CUTTER Work Phone: Start: 75-39-6123Kgox stain microscopyAmanda Kiera BUNDLE CUTTER Work Phone: Start: 53-06-7758YVLKIQO CULTUREFredric H Itzkowitz DO Work Phone: Start: 09-44-5817PPFIZRSQB CULTUREFredric H Itzkowitz DO Work Phone: Start: 59-77-7958BQ of lower leg without contrast Melvi Kiera BUNDLE CUTTER Work Phone: Start: 25-84-0996UO of abdomen and pelvis without contrastAmanda Kiera BUNDLE CUTTER Work Phone: Start: 20-34-2542Cjlum Screen MRSA/MSSAAmanda Kiera BUNDLE CUTTER Work Phone: Start: 33-06-0140Hcfazkenf for occult blood in feces Melvi Kiera BUNDLE CUTTER Work Phone: Start: 40-43-6722Jipwvr Kiera BUNDLE CUTTER Work Phone: Start: 16-68-3248Aggik chest X-rayAmanda Kiera BUNDLE CUTTER Work Phone: Start: 51-79-7800Ihkghefx identified in Blood by CultureAmanda Kiera BUNDLE CUTTER Work Phone: Start: 48-46-1641Mytorxcul ID (NA Multiplex Assay) Melvi Kiera BUNDLE CUTTER Work Phone: Start: 01-58-3462Eshtr cultureAmanda Kiera BUNDLE CUTTER Work Phone: Start: 07-12-2024 End: 82-47-6162Yogty nucleic acid assayAmanda Kiera BUNDLE CUTTER Work Phone: Start: 91-02-7457Qebxlr Kiera BUNDLE CUTTER Work Phone: Start: 75-62-3884Crrbz cultureJared Veronica DO Work Phone: Start: 07-42-2140PM pre/post mri xrayJared Veronica DO Work Phone: Start: 96-94-0110LO lumbar spine wo conJared Veronica DO Work Phone: Start: 04-03-2024 End: 77-39-2548Nvkxo Veronica DO Work Phone: Start: 29-33-5131Srattwsj identified in Blood by CultureOpal Ga DO Work Phone: Start: 43-48-8837Vxblldgfrwl Panel (PCR)Opal Ga DO Work Phone: Start: 28-01-1664Qdqzr cultureOpal Ga DO Work Phone: Start: 60-39-1212Syiob Veronica DO Work Phone: Start: 20-00-7922Aknxi chest X-rayOpal Ga DO Work Phone: Start: 34-08-4047Kojhg gap [Moles/Vol]Gustabo Diglio PA Work Phone: Start: 13-11-8785Ecjnm metabolic panel calcium total Gustabo Diglio PA Work Phone: Start: 32-58-6329NMVLKTLAEZ FILTRATION RATE, ESTIMATED Gustabo Diglio PA Work Phone: Start: 36-87-8856Zfkmbh ecg 1-3 leads w/interpretation & reportUnknown Provider ResultStart: 95-92-8417Frefnc ecg 1-3 leads w/interpretation & reportUnknown Provider ResultStart: 41-28-6540Tnvtj gap [Moles/Vol]Gustabo Diglio PA Work Phone: Start: 95-38-3729Kccfx metabolic panel calcium total Gustabo Diglio PA Work Phone: Start: 53-93-5085WVEGGUCWNW FILTRATION RATE, ESTIMATED Gustabo Diglio PA Work Phone: Start: 81-84-6332Mhiidhrup virus A and B RNA and SARS-CoV-2 (COVID-19) N gene panel - Respiratory specimen by SMITHA with probe detectionRanda King MD Work Phone: Start: 54-85-9239MFFNPGX, SEPSISRanda King MD Work Phone: Start: 08-79-2236Clzxwdmr identified in Blood by Aerobe cultureRanda King MD Work Phone: Start: 45-97-6861Nnnxu count complete automatedOlfannie King MD Work Phone: Start: 33-39-2309Ovreysd bacterial blood aerobic w/id isolatesOlfannie King MD Work Phone: Start: 03-19-2129JOIKOQH, SEPSISOlfannie King MD Work Phone: Start: 80-42-0760Owznq gap [Moles/Vol]Gustabo Diglio PA Work Phone: Start: 21-33-0320Dxjjw metabolic panel calcium total Gustabo Diglio PA Work Phone: Start: 69-15-2226KOAJUUGUHP FILTRATION RATE, ESTIMATED Gustabo Diglio PA Work Phone: Start: 53-01-3214Hnvzfp and language therapy regime Randa King MD Work Phone: Start: 87-54-0530Rcknrtpole exam chest single view Randa King MD Work Phone: Start: 29-26-8942Uo head/brain w/o contrast material Randa King MD Work Phone: Start: 16-57-5270Ovgm bld gluc mntr dev cleared fda spec home useAlexis Diglio PA Work Phone: Start: 98-69-1650Wlkkl gap [Moles/Vol]Gustabo Diglio PA Work Phone: Start: 95-89-4611Rcqrx metabolic panel calcium total Gustabo Diglio PA Work Phone: Start: 01-86-8408XMKSQWVPAH FILTRATION RATE, ESTIMATED Gustabo Diglio PA Work Phone: Start: 63-15-8334Ynpr tthrc r-t 2d w/wom-mode compl spec&colr Baldev King MD Work Phone: Start: 02-23-2024 End: 54-23-4918Ezdumh ecg 1-3 leads w/interpretation & reportUnknown Provider ResultStart: 32-43-3262Fxvrq gap [Moles/Vol]Gustabo Diglio PA Work Phone: Start: 04-61-2915Tebol metabolic panel calcium total Gustabo Diglio PA Work Phone: Start: 31-66-4752IPPLNGNTKN FILTRATION RATE, ESTIMATED Gustabo Diglio PA Work Phone: Start: 45-52-4227Ibcjyi ecg 1-3 leads w/interpretation & reportUnknown Provider ResultStart: 81-82-8702Uovszttjnnb peptideOlfannie King MD Work Phone: Start: 02-22-2024 End: 50-11-2153Jlqlft ecg 1-3 leads w/interpretation & reportUnknown Provider ResultStart: 04-84-1236Yjdh bld gluc mntr dev cleared fda spec home useAlexis Diglio PA Work Phone: Start: 69-74-1820Tgkhv gap [Moles/Vol]Gustabo Diglio PA Work Phone: Start: 04-46-6939Irqeo metabolic panel calcium total Gustabo Diglio PA Work Phone: Start: 21-32-0379CVFLMUMKQO FILTRATION RATE, ESTIMATED Gustabo Diglio PA Work Phone: Start: 63-11-5720Eenm bld gluc mntr dev cleared fda spec home useAlexis Diglio PA Work Phone: Start: 00-83-1026Ndgmfz ecg 1-3 leads w/interpretation & reportUnknown Provider ResultStart: 35-12-4478Jfnjb count hemoglobinSttyrone Whittington Parvez PA-C Work Phone: Start: 86-46-4250Rehkf spine 1 view specify level Selmerna Burris MD Work Phone: Start: 02-21-2024 End: 46-93-6949Xcgptapgvkz posterior/posterolateral lumbarSelvon Moshe Burris MD Work Phone: Start: 02-21-2024 End: 08-09-4580Nzenqceth spine surgery local from same incisionSmitali Burris MD Work Phone: Start: 02-21-2024 End: 36-43-6192Cmp facetectomy & foramotomy [address] TID[place] Work Phone: Start: 66-08-4003Tbbaidny [address] [place] TIDWELL Work Phone: Comment on above:Performed at [facility] [address] [place] [address]Ysaxv: 95-75-4940Etufu typing serologic aboAlexis Diglio PA Work Phone: Start: 98-00-8974Iay routine ecg w/least 12 lds w/i&r Tavo Mcintyre DO Work Phone: Start: 98-71-0274PB of right hipDO Opal Sparksmyranda Work Phone: Start: 82-04-2693Gtdwt X-ray of right hipDO Opal Daily Work Phone: Start: 22-88-1760Fwpwm cultureDO Opal Daily Work Phone: Start: 08-45-4412Jnquu culture for bacteria, including anaerobic screenDO Opal Ga Work Phone: start: 12-64-0708Orihk chest X-rayDO Opal Ga Work Phone: Start: 32-13-9665EJN of lumbar spine with contrastDO Opal Ga Work Phone: Start: 28-39-1084Vfezvoq ultrasonography of bilateral carotid arteriesDO Opal Ga Work Phone: Start: 72-23-4631Crvuuxrclrcewou of bilateral kidneys DO Opal Ga Work Phone: Start: 03-14-6670UUNQ Antigen (LFIA)DO Opal Ga Work Phone: Start: 73-35-2696Xpivo chest X-rayDO Opal Ga Work Phone: Start: 02-21-1128Nwnmbewk tomography of thoracic spine without contrastDO Opal Ga Work Phone: Start: 29-04-0011BF cervical spine without contrastDO Opal Ga Work Phone: Start: 61-71-7943GB of head without contrastDO Opal Ga Work Phone: Start: 88-69-5250BS of lumbar spine without contrastDO Opal Ga Work Phone: Start: 94-56-3554Lpyye colonoscopyOpal Ga Work Phone: Comment on above:[facility];Arthroplasty of kneeOpal P Tjs Work Phone: Comment on above:2016 and 2020;Arthroscopy of shoulder Opal P Tjs Work Phone: Cardiac catheterizationEdmondamadou P Tjs Work Phone: Epidural steroid injectionOpal P Tjs Work Phone: History of excision of lamina of lumbar vertebra for decompression of spinal cordHx of decompressive lumbar laminectomyAmanda Kiera BUNDLE CUTTER Work Phone: Comment on above:2011-with tumor resectionHistory [...] Work Phone: Plan of Treatment DateCare ActivityDetailAuthorStart: 69-92-7706IvmdiOhioHealth Mansfield Hospitaltart: 43-42-6261KlaephrldMartins Ferry Hospitaltart: 72-64-2768Kxwue [facility]htart: 12-27-2024 Bacteria identified in Urine by CultureDayton Children's Hospitaltart: 02-63-2842WuvcnmsxyMartins Ferry Hospitaltart: 12-12-2024 Hospital admissionMartins Ferry Hospitaltart: 27-20-9554Zoqawxem identified in Urine by [facility]oster [facility] Start: 70-90-4280RdhbxOhioHealth Mansfield Hospitaltart: 10-10-2024 [facility]: 10-06-2024 End: 89-21-9690SkikpmhafMartins Ferry Hospitaltart: 62-69-5021Ytxomafr admissionMartins Ferry Hospitaltart: 84-73-2182NevpvofxzMartins Ferry Hospitaltart: 32-05-3244Djxfzknc identified in Urine by CultureDayton Children's Hospitaltart: 29-33-5532ZagbeOhioHealth Mansfield Hospitaltart: 73-70-4041kpeqfaomxoIktpjjeptgPcazqtri:EU Ameena Start: 20-20-3501HwfzanszhMartins Ferry Hospitaltart: 28-22-7570WoqbxhcivGeorgetown Behavioral Hospital CenterStart: 52-49-8136RtkcbyytfGeorgetown Behavioral Hospital CenterStart: 20-20-7678XchyzobpiGeorgetown Behavioral Hospital CenterStart: 07-18-2024 End: 67-87-4827Zjertay encounter yvefarblq35/14/2025 10:00 AM EDT Office Visit [place] [address] [facility] [address] [place] [id number] Tavo Mcintyre DO [address] [place] [address] [facility] CenterStart: 62-82-1311ThbabwbmaMartins Ferry Hospitaltart: 07-17-2024 End: 67-23-4751MjoygqxopGeorgetown Behavioral Hospital CenterStart: 68-52-7227Yollsszwtwciu metabolic 1999 panel - Serum or PlasmaGeorgetown Behavioral Hospital CenterStart: 07-16-2024 End: 33-34-1885KaxdmaubqGeorgetown Behavioral Hospital CenterStart: 13-74-3183Uicmvaslb microbial cultureGeorgetown Behavioral Hospital CenterStart: 83-99-6489Abfmijjkspltq metabolic 1999 panel - Serum or PlasmaGeorgetown Behavioral Hospital CenterStart: 2024 End: 65-21-8797PqweiiwhqGeorgetown Behavioral Hospital CenterStart: 28-48-0076Idtkguuh to infectious diseases physicianGeorgetown Behavioral Hospital CenterStart: 07-14-2024 Comprehensive metabolic 1999 panel - Serum or PlasmaGeorgetown Behavioral Hospital CenterStart: 07-14-2024 End: 12-50-4641FqfcfmmlpGeorgetown Behavioral Hospital CenterStart: 62-92-4396Nujxzvhnnnlie metabolic 1999 panel - Serum or PlasmaGeorgetown Behavioral Hospital CenterStart: 19-88-8490QvnzhiyoaGeorgetown Behavioral Hospital CenterStart: 07-12-2024 End: 01-01-8207MivxbvwbwGeorgetown Behavioral Hospital CenterStart: 70-79-4463Jebbnbmy admissionGeorgetown Behavioral Hospital CenterStart: 09-21-6043Goflcwqml culture of sputumGeorgetown Behavioral Hospital CenterStart: 88-74-4046Ofhgfbkh therapy procedureGeorgetown Behavioral Hospital CenterStart: 31-58-2720Xrqbumfv to occupational therapistMartins Ferry Hospitaltart: 59-41-9474Pvaishuy to urologistMartins Ferry Hospitaltart: 69-60-0188Wwtlt culture [facility] Hospitaltart: 07-12-2024 End: 75-26-5423XgodubfabMartins Ferry Hospitaltart: 07-12-2024 Hemoglobin.gastrointestinal [Presence] in StoolUniversity Hospitals Ahuja [facility] Center Start: 85-85-0714Putvwstc of Right Lower Leg Skin, External ApproachMartins Ferry Hospitaltart: 60-03-0171Acjubpzxv of Infusion Device into Superior Vena Cava, Percutaneous ApproachMartins Ferry Hospitaltart: 65-54-8603NooouljlaMartins Ferry Hospitaltart: 06-12-2024 End: 97-40-6249Kdgct [facility]htart: 03-15-2024 [facility]tart: 80-75-2706MlknroceuMartins Ferry Hospitaltart: 33-59-2303Xvwklaal identified in Blood by CultureBlood Culture [facility] Hospitaltart: 76-65-0690Pboonlmq therapy procedure [facility]tart: 66-81-0604Ovzrfmvb to occupational therapistMartins Ferry Hospitaltart: 31-32-6829CaozfxowjMartins Ferry Hospitaltart: 48-07-4429Rwcenuet admissionMartins Ferry Hospitaltart: 03-10-2024 End: 47-60-4764FdocfcpnsMartins Ferry Hospitaltart: 58-31-1926Dnwrhnc function panelMartins Ferry Hospitaltart: 60-16-8639Mncszje Directive DiscussionAdvance Directive DiscussionMercy Health – The Jewish Hospitaltart: 28-00-9306Sjyuvt Wellness Visit (Medicare)Annual Wellness Visit (Medicare)Bon [facility] HospitalOverwolf [facility]: 41-02-2203Oreds-19 Vaccine ( season)Covid- 19 Vaccine ()[facility] Hospitaltart: 36-10-2856LQOMI-19 Vaccine ()COVID-19 Vaccine ()Bon [facility] HospitalOverwolf [facility]: 74-31-1914VRVSD-19 Vaccine ( season)COVID-19 Vaccine ( season)[facility] HamiltonStdubois: 77-25-2756Nlaeizpmt vaccinationInfluenza Vaccine (#1)[facility] HamiltonStdubois: 15-77-7823Yevnlshhk vaccinationFlu vaccine (#1)Rick [facility] CenterStart: 07-13-2023 End: 15-57-1951Esihkca aminotransferase [Enzymatic activity/volume] in Serum or Plasma by With P-5'-PAlanine Aminotransferase Lab Routine Hyperlipidemia, unspecified hyperlipidemia type Expected: 07/13/2023 (Approximate), Expires: 07/12/2024[facility] Work Phone: Comment on above:Expected: 07/13/2023 (Approximate), Expires: 07/12/2024Start: 07-13-2023 End: 15-16-3900Gyvbnxuya aminotransferase [Enzymatic activity/volume] in Serum or Plasma by With P-5'-PAspartate Aminotransferase Lab Routine Hyperlipidemia, unspecified hyperlipidemia type Expected: 07/13/2023 (Approximate), Expires: 07/12/2024UnTr[facility] Work Phone: Comment on above:Expected: 07/13/2023 (Approximate), Expires: 07/12/2024Start: 07-13-2023 End: 93-36-3260Zodrz metabolic 2000 panel - Serum or PlasmaBasic Metabolic Panel Lab Routine Chronic atrial fibrillation (Multi) Essential hypertension, benign Heart failure, NYHA class 2 (Multi) Hyperlipidemia, unspecified hyperlipidemia type Expected: 07/13/2023 (Approximate), Expires: 07/12/2024[facility] Service Area Work Phone: Comment on above:Expected: 07/13/2023 (Approximate), Expires: 07/12/2024Start: 07-13-2023 End: 46-23-3667Ccpwn 1996 panel - Serum or PlasmaLipid Panel Lab Routine Hyperlipidemia, unspecified hyperlipidemia type Expected: 07/13/2023 (Approx imate), Expires: 07/12/2024UnTr[facility] Work Phone: Comment on above:Expected: 07/13/2023 (Approximate), Expires: 07/12/2024Start: 07-13-2023 End: 90-73-1478Olmyrzlhtxc peptide B [Mass/volume] in BloodB-Type Natriuretic Peptide Lab Routine Heart failure, NYHA class 2 (Multi) Expected: 07/13/2023 (Approximate), Expires: 07/12/2024[facility] Work Phone: Comment on above:Expected: 07/13/2023 (Approximate), Expires: 07/12/2024Start: 17-03-6210KAO, Provider: Tavo Mcintyre, Status: Pen, Time: 9:40 AMFUV, Provider: Tavo Mcintyre, Status: Pen, Time: 9:40 AMMP-[facility] [address] DO Work Phone: Start: 18-51-2378HzovotnzhibminhlYfytcusdejypbc [facility]Start: 30-12-9148WQXZN-19 Vaccine ( season)COVID-19 Vaccine ( season)[facility] Start: 53-95-9633ZMS, Provider: Tavo Mcintyre, Status: Pen, Time: 9:20 AMFUV, Provider: Tavo Mcintyre, Status: Pen, Time: 9:[address] [facility] [place] [address] DO Work Phone: Start: 39-31-9265SSKGQN MON, Provider: LEVAR MARES DRILL PRESS SET UP OPERATOR 1,[id number], Status: Pen, Time: 10:30 [facility] MON, Provider: LEVAR MARES DRILL PRESS SET UP OPERATOR 1,[id number], Status: Pen, Time: 10:30 AMMP-[facility]-[place] [address] DO Work Phone: Start: 99-04-5777YNI, Provider: Enedelia Mix, Status: Pen, Time: 2:30 PMFUV, Provider: Enedelia Mix, Status: Pen, Time: 2:30 PMMP-[facility]-[place] [address] DO Work Phone: Start: 45-04-8999EccvsnflwUniversity Hospitals Ahuja Medical Center Start: 20-00-4542Hweacbbm to infectious diseases physicianMartins Ferry Hospitaltart: 85-82-6116Gdxrefyu to neurologistMartins Ferry Hospitaltart: 69-64-6998Ptlxbmho to Social ServicesMartins Ferry Hospitaltart: 66-03-5510Rjhhfasx admissionMartins Ferry Hospitaltart: 22-37-5888XcrvrpodlMartins Ferry Hospitaltart: 25-36-1870HOF, Provider: Tavo Mcintyre, Status: Pen, Time: 9:50 AMMP-[facility]-[place] [address] DO Work Phone: Start: 63-11-8600AYL, Provider: Tavo Mcintyre, Status: Pen, Time: 9:30 AMFUV, Provider: Tavo Mcintyre, Status: Pen, Time: 9:30 AM-[facility]-[place] [address] DO Work Phone: Start: 28-96-7261Elrvaqqjxon Syncytial Virus (RSV) or age 60 yrs+ (1 - 1-dose 75+ series)Respiratory Syncytial Virus (RSV) or age 60 yrs+ (1 - 1-dose 75+ series)[facility] HospitalStart: 77-53-6034BCO High Risk: (Elderly (60+) or Population) (1 - 1-dose 75+ series)RSV High Risk: (Elderly (60+) or Population) (1 - 1-dose 75+ series)[facility]Start: 74-33-7704WQT Vaccine (1 - 1-dose 75+ series)RSV Vaccine (1 - 1-dose 75+ series)[facility] Hospitaltart: 06-02-2016 Pneumococcal 65+ years Vaccine (2 of 2 - PPSV23 or PCV20)Pneumococcal 65+ years Vaccine (2 of 2 - PPSV23 or PCV20)[facility] HospitalStart: 06-02-2016 Pneumococcal Vaccine: 65+ Years (2 of 2 - PPSV23 or PCV20)Pneumococcal Vaccine: 65+ Years (2 of 2 - PPSV23 or PCV20)[facility]: 65-57-1255SHM patients and/or patients aged 60+ years (1 - 1-dose 60+ series)RSV patients and/or patients aged 60+ years (1 - 1-dose 60+ series)[facility]: 18-15-6187Ldmztixyeocg Vaccine: 50+ (1 of 1 - PCV)Pneumococcal Vaccine: 50+ (1 of 1 - PCV)[facility]: 11-78-4207Yzmnwqcl vaccine (1 of 2)Shingles vaccine (1 of 2)[facility]: 65-51-4160Kqxhxejq Vaccine (1 of 2)Shingrix Vaccine (1 of 2) [facility]: 26-49-8426Shkpzw Vaccines (1 of 2)Zoster Vaccines (1 of 2)[facility]: 50-08-4574Dmzlnurs ScreeningDiabetes ScreeningUniversity Hospitals Beachwood Medical Centerrt: 88-53-2368DOqL/Tdap/Td Vaccines (1 - Tdap) DTaP/Tdap/Td Vaccines (1 - Tdap)[facility]: 83-91-0993CUbD/Tdap/Td vaccine (1 - Tdap)DTaP/Tdap/Td vaccine (1 - Tdap)[facility]: 88-69-5300Cczfy microalbumin profileDTaP,Tdap,Td Vaccine (1 - Tdap)[facility]err[facility]: 98-67-7227Xpiuwqk ScreeningAnxiety ScreeningUniversity Hospitals Beachwood Medical Centerrt: 93-65-3379Ngikmwozox ScreeningDepression ScreeningUniversity Hospitals Beachwood Medical Centerrt: 83-33-0340Pvjkfkjf mellitus screeningDiabetes ScreeningUnGuernsey Memorial Hospital: 02-14-5063Uzgjlcnopi Screen Depression ScreenBon [facility]: 98-72-2480Yhrkm panelLipidsBon [facility]: 25-85-5115Soqmrxaihb measurementCreatinine Level [facility]: 61-75-2522Pkdxw panelLipid Panel [facility]: 05-11-1942Medicare Annual Wellness Visit Medicare Annual Wellness Visit (AWV)[facility]: 57-41-7095Xtomesisl measurementPotOklahoma Hospital Association Start: 00-16-1176Jhozphy stimulating hormone measurementTSHarmon Memorial Hospital – HollisAEROBIC CULTUREAEROBIC CULTURE Lab Routine 2024 12:15 PM EDTNOND Healthcare Work Phone: ANAEROBIC CULTUREANAEROBIC CULTURE Lab Routine 2024 12:15 PM EDDelta Medical CenterAnion gap measurementCommunity Regional Medical Center Work Phone: Bacteria identified in Blood by Aerobe cultureBon [facility] Health CenterBacteria identified in Urine by CultureUrine Culture [facility] End: 38-47-3635Sspdg metabolic 1999 panel - Serum or PlasmaBasic Metabolic Panel Lab Routine Daily for 1 Weeks starting 02/22/2024 until 02/28/2024, 6 completed Bon [facility] CenterComment on above:Daily for 1 Weeks starting 02/22/2024 until 02/28/2024, 6 completedBasophil countCommunity Regional Medical Center Work Phone: Basophil percent differential countCommunity Regional Medical Center Work Phone: Blood culture for bacteria, including anaerobic screen Blood CultureUniversity Hospitals Ahuja Medical CenterCalcium [Mass/volume] in Serum or PlasmaCommunity Regional Medical Center Work Phone: Carbon dioxide, total [Moles/volume] in Serum or PlasmaCommunity Regional Medical Center Work Phone: Chloride [Moles/volume] in Serum or PlasmaCommunity Regional Medical Center Work Phone: Comprehensive metabolic 1999 panel - Serum or Plasma [facility] CenterCreatinine and Glomerular filtration rate.predicted panel - Serum, Plasma or BloodCommunity Regional Medical Center Work Phone: CT Lumbar spine WO [facility] CenterCT Unspecified body region WO [facility] Debridement nail any method 1-5DEBRIDEMENT OF NAIL(S), 1-5 Procedures Routine Pain due to onychomycosis of toenail of left foot Pain due to onychomycosis of toenail of right foot Localized edema Decreased pedal pulses nursing home (current) use of anticoagulants Ordered: 04/26/2024P [facility] Work Phone: Comfinj on above:Ordered: 04/26/2024Eosinophil percent differential countGeorgetown Behavioral Hospital Ctr Work Phone: Eosinophils [#/volume] in [facility] Work Phone: Erythrocyte mean corpuscular volume determination [facility] Work Phone: Erythrocytes [#/volume] in BloodGeorgetown Behavioral Hospital Ctr Work Phone: Glucose [Mass/volume] in Serum or PlasmaGeorgetown Behavioral Hospital Ctr Work Phone: Glucose [Mass/volume] in Serum or PlasmaPOCT Glucose Point of Care Testing STAT As Needed until discontinued starting 02/21/2024on [facility] Eferio Work Phone: comment on above:As Needed until discontinued starting 02/21/2024Glucose [Mass/volume] in Serum or PlasmaPOCT Glucose Point of Care Testing STAT As Needed until discontinued starting 02/21/2024[facility] on above:As Needed until discontinued starting 02/21/2024 Hematocrit [Volume Fraction] of [facility] Work Phone: Hemoglobin [Mass/volume] in [facility] Work Phone: Hemoglobin distribution, width determinationGeorgetown Behavioral Hospital Ctr Work Phone: Leukocytes [#/volume] in [facility] Work Phone: Lymphocyte countGeorgetown Behavioral Hospital Ctr Work Phone: Lymphocyte percent differential countGeorgetown Behavioral Hospital Ctr Work Phone: Mean corpuscular hemoglobin concentration determinationGeorgetown Behavioral Hospital Ctr Work Phone: Mean corpuscular hemoglobin determinationGeorgetown Behavioral Hospital Ctr Work Phone: Measurement of renal functionGeorgetown Behavioral Hospital Ctr Work Phone: Monocyte countGeorgetown Behavioral Hospital Ctr Work Phone: Monocyte percent differential countGeorgetown Behavioral Hospital Ctr Work Phone: MR Lumbar spine WO and W contrast [facility] HospitalMR Lumbar spine WO and W contrast [facility] HospitalNeutrophil countGeorgetown Behavioral Hospital Ctr Work Phone: Neutrophil percent differential countGeorgetown Behavioral Hospital Ctr Work Phone: Oxygen therapy [Minimum Data Set]Initiate Oxygen Therapy Protocol Respiratory Care Routine As Needed until discontinued starting 02/21/2024 HomeWellness on above:As Needed until discontinued starting 02/21/2024atient EducationGeorgetown Behavioral Hospital Ctr Work Phone: Patient referralGeorgetown Behavioral Hospital Ctr Work Phone: Platelet mean volume determinationGeorgetown Behavioral Hospital Ctr Work Phone: Platelets [#/volume] in BloodGeorgetown Behavioral Hospital Ctr Work Phone: Potassium [Moles/volume] in Serum or PlasmaGeorgetown Behavioral Hospital Ctr Work Phone: Sodium [Moles/volume] in Serum or PlasmaGeorgetown Behavioral Hospital Ctr Work Phone: Spirometry panelIncentive spirometry Respiratory Care Routine Every 2hr while awake until discontinued starting 02/21/2024 HomeWellness on above:Every 2hr while awake until discontinued starting 02/21/2024Urea nitrogen [Mass/volume] in Serum or PlasmaGeorgetown Behavioral Hospital Ctr Work Phone: End: 32-17-0727Ugyenmngop with Reflex to CultureUrinalysis with Reflex to Culture Lab Routine One Time for 1 Occurrences starting 02/25/2024 until 04/27/2023 HomeWellness on above:One Time for 1 Occurrences starting 02/25/2024 until 02/25/2024Urine [facility] HospitalXR Lumbar spine ViewsJoe [facility] Immunizations Immunization DateImmunizationNotesCare GqodiemdMjibzsox50-38-7497qhwtxbymq virus vaccine, unspecified formulationDO Opal Ga Work Phone: [facility]10-13-2023influenza, high dose seasonal, preservative-freeOpal Ga Other [facility]10-20-2022influenza, seasonal, injectableOpal Ga Other [facility]10-20-2022COVID-19 Moderna (BIvalent)Opal Ga Other [facility]10-20-2022Fluzone High-Dose Quadrivalent 0.7 ML Intramuscular Suspension Prefilled SyringeOpal P Daily Work Phone: [facility]12-15-2021Moderna COVID-19 Vaccine 100 MCG/0.5ML Intramuscular SuspensionBryan P Tjs Work Phone: [facility]03-24-2021Moderna COVID-19 Vaccine 100 MCG/0.5ML Intramuscular SuspensionBryan P Tjs Work Phone: [facility]03-01-2021COVID-19 Vaccine Moderna - Documentation Purposes OnlyOpal Ga Other [facility]02-24-2021Moderna COVID-19 Vaccine 100 MCG/0.5ML Intramuscular SuspensionBryan P Kuns Work Phone: [facility]02-08-2021Moderna COVID-19 Vaccine 100 MCG/0.5ML Intramuscular SuspensionEdmondan P Kuns Work Phone: [facility]10-17-2020Fluzone High-Dose Quadrivalent 0.7 ML Intramuscular Suspension Prefilled SyringeEdmondan P Tjs Work Phone: [facility]10-01-2020influenza, seasonal, injectableBryan P Kuns Work Phone: [facility]09-18-2019influenza, seasonal, injectableBryan Kuns Other [facility]09-16-2019Seasonal trivalent influenza vaccine, adjuvanted, preservative freeBryan P Kuns Work Phone: [facility]09-01-2019influenza virus vaccine, unspecified formulationBryan P Kuns Work Phone: [phone]-OkfbdRichard [place] [address] DO Work Phone: [phone], high dose seasonal, preservative-freeBryan P Kuns Work Phone: [facility]10-01-2018influenza, seasonal, injectableBryan Kuns Other [facility]09-01-2018influenza virus vaccine, unspecified formulationBryan P Kuns Work Phone: [phone]-HnbxhRichard [place] [address] DO Work Phone: [phone]msswmk virus vaccine, unspecified formulationBryan P Kuns Work Phone: [phone]-FvkxlRichard [place] [address] DO Work Phone: [phone]liwofvgc conjugate vaccine, 13 valent Opal P Kuns Work Phone: [phone]-ZktcrRichard [place] [address] DO Work Phone: [phone]kmfp 40/XylocaineBryan Kuns Other [employer] Other Payers DatePayer CategoryPayerPolicy [id number]-cwm [id number] Cross Blue Shield Managed CareASPIRUS [facility] [id number]6-4304 [id number]445.64676-79-8011RancSalah [facility] INDEMNITY .2.840.445699.1.13.159.2.7.9.762123.63548. [facility] [id number] .[id number] 1960Medicare [id number] .6.91392[id number] .1.414527.3.579.[id number] .1.395680.3.57[id number] 2.16.840.1.275224.3.579.2.51796-46-2642Sobvrxm259998604 2.16.840.1.955147.3.579.2.38006-74-3845Ckhzlhz066527257 2.16.840.1.482841.3.579.2.58255-36-8068Iaglkgd119187764 2.16.840.1.212921.3.579.2.37945-54-4978Jokfmqy827515719 2.16.840.1.497079.3.579.2.29184-15-7930Mxmxpbr876488597 2.840.1.285168.3.579.2.02615-13-8492Arvjyub702855521 2.840.1.606831.3.579.2.64439-50-9585Cwguhig0892264 2.16840.1.012706.3.579.2.47679-31-5682Oxoxyvs1913598 2.16.840.1.446019.3.579.2.08359-79-4651Ungpvzi7790952 2.840.1.641089.3.579.2.73079-76-8400Lqperyh2093982 2.16.840.1.506276.3.579.2.70150-98-1621Otlcwqu4372987 2.16.840.1.056286.3.579.2.43585-17-8092Pxbwaey9132032 2.16.840.1.481032.3.579.2.87803-59-1279Qzhgvkd3769067 2.16840.1.680126.3.579.2.32073-48-1578Kwqsfmm7460708 2.16.840.1.558919.3.579.2.10047-81-1024Qeztzfp7933130 2.16.840.1.223508.3.579.2.43663-72-4740Pplcgyv2502607 2.16.840.1.772112.3.579.2.82540-88-6045Iniihwk5026772 2.16.840.1.308707.3.579.2.32076-25-6267Mvzgkkz4147050 2.16.840.1.048821.3.579.2.70162-23-9379Fjgznrn5814067 2.16840.1.314422.3.579.2.89869-67-3372Mkcxuwv673046036 2.16840.1.815607.3.579.2.8621-87-6421Xyxadld90137563 2.16.840.1.280633.3.579.2.33418-41-7719Taejzkz60691433 2.16.840.1.887251.3.579.2.08484-41-7640Fccqwrh20406568 2.16.840.1.755707.3.579.2.64095-69-2127Drkbpuo11258944 2.16840.1.708669.3.579.2.30856-78-8572Gvklwkt32365485 2.16.840.1.401742.3.579.2.17184-48-3689Lexvaqq92189444 2.16.840.1.580762.3.579.2.54078-81-2545Bqzhacy935349194 2.16.840.1.269877.3.579.2.12970-87-0195Uxbtvjd209330138 2.16.840.1.650974.3.579.2.25788-07-5454Retfeoh362033958 2.840.1.186532.3.579.2.13028-60-3668Ojeujrh803239939 2.840.1.580022.3.579.2.62009-13-6855Glfpbxv083538586 2.84.1.789795.3.579.2.53289-87-9260Cxuksgb162170920 2.0.1.183571.3.579.2.17661-02-4944Xjnsdko559153704 2..1.892520.3.579.2.85975-17-0506Pwkuzyi596417644 2..1.716834.3.579.2.89059-09-5652Vvdwxfu119619028 2..1.164037.3.579.2.96437-43-2442Ffncudi739171252 2..1.768170.3.579.2.54975-67-0939Ksqpgsl684150498 2.840.1.025930.3.579.2.9317Pwsnguz36902043 2..1.833276.3.579.2.531 Nxmstkx51991410 2.840.1.438797.3.579.2.248Xiknemr73377865 2.840.1.552658.3.579.2.300Ifeadoi11707190 2.840.1.810713.3.579.2.531 Lwionda69644186 2.840.1.231063.3.579.2.994Vlalcvb24737185 2.840.1.704235.3.579.2.902Yjujfdg47534939 2.16.840.1.535878.3.579.2.531 Zskqocv75760895 2.840.1.615931.3.579.2.673Kcqasoe94236369 2.840.1.859[id number] 2.840.1.478312.3.579.2.531 Rdekgyc95001233 2.840.1.732852.3.579.2.009Htazndf85153408 2.840.1.596447.3.579.2.502Pgdhwzo00437208 2.840.1.524592.3.579.2.531 Tmiqynv73001710 2.840.1.629513.3.579.2.244Begrrat52361573 2.840.1.984848.3.579.2.794Wkvjqmw46301950 2.0.1.210129.3.579.2.531 Xrhtctu96538283 2..1.369090.3.579.2.459Lwlzxqk80921238 2.840.1.195833.3.579.2.459Ftcynbm47982620 2.840.1.650924.3.579.2.531 Opuaxwc87257991 2.840.1.028754.3.579.2.010Znxhxls53267374 2.840.1.528414.3.579.2.676Zkxiprx22612753 2.840.1.110108.3.579.2.531 Szxcgck55024052 2.840.1.320029.3.579.2.786Mbsovil50859379 2.840.1.851829.3.579.2.269Zfhvqij19261179 2.16.840.1.279565.3.579.2.531 Qzsulip10832482 2.16.840.1.604590.3.579.2.415Pfrwpab87273402 2.16.840.1.689064.3.579.2.569Urwwpxw92265738 2.16.840.1.140492.3.579.2.531 Uempkzq29291116 2.16.840.1.192737.3.579.2.531 Social History DateTypeDetailFacilityStart: 07-13-2023 End: 82-64-1275Jpxgc alcohol useDaily alcohol use-[facility] 250 DO Work Phone: Comment on above:1-2 beers;Coffee 2 cups daily;Quit smoking in 1979;Start: 07-13-2023 End: 15-57-9068Lhg Assigned At [facility] Other Start: 12-26-2019 End: 65-66-7898Nhqcuqu smoking status NHISEx-smoker (finding)[facility] 33-82-8309Uvy [facility] 04-07-1963 End: 83-41-0755Vgywuva of tobacco useCurrent smokerUnTrinity Health System West Campus Work Phone: Start: 04-07-1963 End: 30-80-4999Uqmeswp of tobacco useCigarette SmokerUnTrinity Health System West Campus Work Phone: Start: 07-13-2023 End: 54-75-1925Olzmkpd use and exposureSmokeless tobacco non-userUnTrinity Health System [facility] Campus Work Phone: Start: 07-13-2023 End: 45-46-7351Akegckzwt beverage intakeCurrent drinker of alcohol (finding) [facility] Work Phone: Start: 45-69-3407Qbf assigned at birthNot on file [facility] Work Phone: Start: 07-03-2023 End: 99-92-0959Jnqntnih to SARS-CoV-2 (event)Not sureKettering Health HamiltonStart: 42-53-5890Xzgksywxq beverage intakeEx-drinker (finding)[facility] [place] HospitalPhysical abuseDeniesBon [facility] HospitalOverwolf [facility] HospitalStart: 26-57-0657Rqhtckk Commentdaily couple a dayBon [place] [facility] HospitalStart: 03-10-2024 End: 52-77-0118EcuKzhu (finding)[facility] CenterTobaoklahoma er & [facility] smoking status NHISTobacco smoking consumption unknownLee's Summit HospitalStart: 07-13-2024 End: 67-71-9046SabvdgwvsCommunity [facility] Center Work Phone: Medical Equipment Procedure CodeEquipment CodeEquipment Original TextEquipment IdentifierDates Arthroplasty, knee, total, minimally invasiveART SURF LEFT 11MM 10-11EFFDAStart: 70-80-2512Uspkvafebsvl, knee, total, minimally invasive ()[id number] FDAStart: 58-77-6949Tyupksnumrck, knee, total, minimally invasive()[id number] FDA Start: 07-30-2918Bwlxxzkjbnvf, knee, total, minimally invasive ()[id number] FDAStart: 96-48-1025Moczflbmcsuv, knee, total, minimally invasive()[id number] FDAStart: 81-63-1762Euzphdojsend, knee, total, minimally invasiveART SURF LEFT 11MM 10-11EFFDAStart: 80-50-5945Medhlovuycbl, knee, total, minimally invasiveART SURF LEFT 11MM 10-11EFFDAStart: 63-86-7586Odozklbkzfwu, knee, total, minimally invasiveART SURF LEFT 11MM 10-11EFFDAStart: 50-88-5043Xldmvtyjyczh, knee, total, minimally invasiveART SURF LEFT 11MM 10-11EFFDAStart: 58-21-0251Bmzjydnirwth, knee, total, minimally invasiveART SURF LEFT 11MM 10-11EFFDAStart: 11-05-2019 Arthroplasty, knee, total, minimally invasiveART SURF LEFT 11MM 10-11EFFDAStart: 86-07-9432Ksesimjfdvjw, knee, total, minimally invasiveART SURF LEFT 11MM 10-11EFFDAStart: 37-61-7117Vfhaaqxridmk, knee, total, minimally invasiveART SURF LEFT 11MM 10-11EFFDAStart: 36-71-7646Kxgvlnlkwgxz, knee, total, minimally invasiveART SURF LEFT 11MM 10-11EFFDAStart: 59-49-4917Qjgrtrdznwsw, knee, total, minimally invasiveART SURF LEFT 11MM 10-11EFFDAStart: 30-05-4171Vtmhghafaueh, knee, total, minimally invasiveART SURF LEFT 11MM 10-11EFFDAStart: 11-05-2019 Arthroplasty, knee, total, minimally invasiveART SURF LEFT 11MM 10-11EFFDAStart: 55-87-9182Gzzyieahxuos, knee, total, minimally invasiveART SURF LEFT 11MM 10-11EFFDAStart: 96-80-8352Jnhnowqleqwv, knee, total, minimally invasiveART SURF LEFT 11MM 10-11EFFDAStart: 94-26-8472Luxnwdlroqzo, knee, total, minimally invasiveART SURF LEFT 11MM 10-11EFFDAStart: 25-93-6195Ixvsnhfrxljs, knee, total, minimally invasiveART SURF LEFT 11MM 10-11EFFDAStart: 15-20-3491Bulvnyqsoqyq, knee, total, minimally invasiveART SURF LEFT 11MM 10-11EFFDAStart: 11-05-2019 Arthroplasty, knee, total, minimally invasiveART SURF LEFT 11MM 10-11EFFDAStart: 02-02-4803Emqqvclljczh, knee, total, minimally invasiveART SURF LEFT 11MM 10-11EFFDAStart: 61-99-1485Yaaokhyfsrau, knee, total, minimally invasiveFDA Start: 79-93-3853Pmyrvlyvvzyk, knee, total, minimally invasiveFDAStart: 05-13-7357Fsoorizpidum, knee, total, minimally invasiveART SURF LEFT 11MM 10-11EFFDAStart: 89-44-8632Qurmdpnirnet, knee, total, minimally invasiveART SURF LEFT 11MM 10-11EFFDAStart: 56-59-1912Qwevbsblorib, knee, total, minimally invasiveFDAStart: 86-13-5757Fcdbclojzsvs, knee, total, minimally invasiveFDA Start: 42-95-3165Yjlrqmkoolqw, knee, total, minimally invasiveFDAStart: 74-76-5433Dbvqtitwlarp, knee, total, minimally invasiveFDAStart: 11-05-2019 Arthroplasty, knee, total, minimally invasiveFDAStart: 06-30-8282Sckyibgoihys, knee, total, minimally invasiveART SURF LEFT 11MM 10-11EFFDAStart: 11-05-2019 Arthroplasty, knee, total, minimally invasiveART SURF LEFT 11MM 10-11EFFDAStart: 03-57-4833Rgsffuwkgiiy, knee, total, minimally invasiveART SURF LEFT 11MM 10-11EFFDAStart: 36-67-0092Sjvshmsjfxjw, knee, total, minimally invasiveART SURF LEFT 11MM 10-11EFFDAStart: 16-18-2429Dzchsvnglpnz, knee, total, minimally invasiveFDAStart: 38-14-2356Snqyyquerxfq, knee, total, minimally invasiveFDA Start: 13-70-0748Sjullzjmbugv, knee, total, minimally invasiveART SURF LEFT 11MM 10-11EFFDAStart: 54-32-2286Clhmvmlheceh, knee, total, minimally invasiveART SURF LEFT 11MM 10-11EFFDAStart: 86-86-1637Rotorkcykfbp, knee, total, minimally invasiveART SURF LEFT 11MM 10-11EFFDAStart: 09-56-5300Cymfnzsrvlvp, knee, total, minimally invasiveART SURF LEFT 11MM 10-11EFFDAStart: 79-81-7457Lyeagrekmzki, knee, total, minimally invasiveART SURF LEFT 11MM 10-11EFFDAStart: 11-05-2019 Arthroplasty, knee, total, minimally invasiveART SURF LEFT 11MM 10-11EFFDAStart: 49-36-3296Rlnahfqozblb, knee, total, minimally invasiveFDAStart: 11-05-2019 Arthroplasty, knee, total, minimally invasiveART SURF LEFT 11MM 10-11EFFDAStart: 45-24-4118Wmqnmcisqupr, knee, total, minimally invasiveFDAStart: 11-05-2019 Goals DatePatient GoalDesired Activity/State Functional Status BxvkOjqirefnafKfgwkpCsvbrtqq61-06-0348Ifcofytlfs statusPatient is Progressing Toward [facility] Work Phone: [phone] statusPatient Not at [facility] Work Phone: [phone] statusPatient is Progressing Toward [facility] Work Phone: [phone] statusPatient is Progressing Toward [facility] Work Phone: [phone] statusPatient at [facility] Work Phone: [phone] statusPatient at [facility] Work Phone: [phone]ommdum statusPatient is Progressing Toward [facility] Work Phone: Mental Status UmvcAhvgofhiysUeifytZylfjghg34-94-3268Jdosxogrr functionPatient at [facility] Work Phone: [phone] functionCognitive Status [facility] Work Phone: [phone] functionPatient at [facility] Work Phone: [phone] functionPatient at [facility] Work Phone: [phone] functionPatient at [facility] Work Phone: [phone] functionPatient at [facility] Work Phone: [phone] functionCognitive Status [facility] Work Phone: Clinical Notes 05-23-2006 to 12-17-2024 Note Date & MzcjSkjyPvsewopu11-73-6510 Progress note Author Michele Knight [facility] CenterNote Date/TimeOctober 2024 8:35pm [place] [address] Hospitalist Progress Note Signed Patient: Tavo Wallis Jr MR# : [id number] : 1940 Acct:[id number] Age/Sex: 84 / M Adm Date: 5 Loc: 4N Room: 2C1534-4 Type: ADM IN Attending Dr: Michele Knight [...] - Continue PT/OT, plan for discharge to [facility] facility for further therapy needs A-fib on [...] <Electronically signed by Michele Knight MD> 12/17/242034 [facility] Work Phone: 1(804) 236-669910-13-2025 Progress note Author [facility]Note Date/TimeOctober 2024 4:47pm [place] [address] Cardiology Progress Note Signed Patient: Tavo Wallis Jr MR# : [id number] : 1940 Acct:[id number] Age/Sex: 84 / M Adm Date: 5 Loc: 4N Room: 2E2038-7 Type: ADM IN Attending Dr: Michele Knight [...] with RVR while on chronic anticoagulation. His MOYLT4UUWCmxavx is 4 and HAS-BLED score is also [...] % (Auto) 64.7 Lymph % (Auto) 17.9 [place] % (Auto) 10.4 Eos % (Auto) 6.2 Baso % (Auto) 0.8 Nucleat RBC Rel Count 0.1 Neut # (Auto) 2.2 Lymph # (Auto) 0.6 L [place] # (Auto) 0.4 Eos # (Auto) 0.2 [...] <Electronically signed by Bhupinder Mcintyre DO> 12/17/241646 [facility] Work Phone: 1(303) 609-266910-12-2025 Progress note Author Akash Mccartney [facility] CenterNote Date/TimeOctober 2024 9:46pm [place] [address] Hospitalist Progress Note Signed Patient: Tavo Wallis Jr MR# : [id number] : 1940 Acct:[id number] Age/Sex: 84 / M Adm Date: 5 Loc: Room: [address] [place] [address] Type: ADM IN Attending Dr: Akash Mccartney [...] - Continue PT/OT, plan for discharge to [facility] facility for further therapy needs A-fib on [...] <Electronically signed by Akash Mccartney MD> 12/16/242145 [facility] Work Phone: 1(253) 529-822810-11-2025 Progress note Author Akash Mccartney [facility] CenterNote Date/TimeOctober 2024 4:39pm [place] [address] Hospitalist Progress Note Signed Patient: Tavo Wallis Jr MR# : [id number] : 1940 Acct:[id number] Age/Sex: 84 / M Adm Date: 5 Loc: 4N Room: [address] [place] [address] Type: ADM IN Attending Dr: Akash Mccartney [...] Syringe IV-PUSH 12/12/25 21:59 Not Given QSHIFT [facility] Trazodone HCl 50 mg 12/12/24 18:24 12/14/24 [...] - Continue PT/OT, plan for discharge to [facility] facility for further therapy needs A-fib on [...] future Documented By: Akash Mccartney MD 5 [id number] Signed By: <Electronically signed by Akash Mccartney MD> 12/15/24 6455 [facility] Work Phone: 1(389) 597-845210-10-2025 Progress note Author Akash Mccartney [facility] CenterNote Date/TimeOctober 2024 5:22pm [place] [address] Hospitalist Progress Note Signed Patient: Tavo Wallis Jr MR# : [id number] : 1940 Acct:[id number] Age/Sex: 84 / M Adm Date: 5 Loc: 4N Room: [address] [place] [address] Type: ADM IN Attending Dr: Akash Mccartney [...] Tablet PO 12/12/25 21:59 400 mg QHS [facility] Administration Non-Formulary Medication 3 mg 12/12/24 22:00 12/13/24 23:08 Eszopiclone [Lunesta] PO 12/12/25 21:59 Not Given QHS [facility] Nystatin 1 applic 12/12/24 21:00 12/14/24 08:04 [...] - Continue PT/OT, plan for discharge to [facility] facility for further therapy needs A-fib on [...] signed by Akash Mccartney MD> 12/14/24 1722 [facility] Work Phone: 1([phone] 975-618710-10-2025 Consult note Author Bhupinder Mcintyre [facility] CenterNote Date/TimeOctober 2024 4:05pm [place] [address] Cardiology Consult Note Signed Patient: Tavo Wallis Jr MR# : [id number] : 1940 Acct:[id number] Age/Sex: 84 / M Adm Date: Loc: 4N Room: [address] [place] [address] Type: ADM IN Attending Dr: Akash Mccartney [...] with RVR while on chronic anticoagulation. His LEQRS5CSIXttmjn is 4 and HAS-BLED score is also [...] themain issue with his falling and weakness. [facility] Medical History Abrasion of arm, left [...] drinks a day >6 Social History Comments: [facility] rehab Meds Medications and Allergies Allergies fentanyl [...] x10E3/uL Lymph # (Auto) 1.2 (1.00-4.8) x10E3/uL [place] # (Auto) 0.5 (0.0-0.8) x10E3/uL Eos # [...] <Electronically signed by RES Janie Khan> 12/14/24 8842 [facility] Work Phone: 1(661) 282-784110-09-2025 Progress note Author Akash Mccartney [facility] CenterNote Date/TimeOctober 2024 5:16pmWelcome[place] [address] Hospitalist Progress Note Signed with Addenda Patient: Tavo Wallis Jr MR# : [id number] : 1940 Acct:[id number] Age/Sex: 84 / M Adm Date: 5 Loc: 4 Room: [address] [place] [address] Type: ADM IN Attending Dr: Akash Mccartney [...] studies Documented By: Akash Mccartney MD 5 8098 Signed By: <Electronically signed by Akash Mccartney MD> 12/13/24 8627 [facility] Work Phone: 1(896) 350-147210-09-2025 History and physical note Author Akash Mccartney [facility] CenterNote Date/TimeOctober 2024 3:14[place] [address] Hospitalist H&P Signed Patient: Tavo Wallis MR# : [id number] : 1940 Acct:[id number] Age/Sex: 84 / M Adm Date: 5 Loc: 4N Room: 5J5382-7 Type: ADM IN Attending Dr: Akash Mccartney [...] that which is noted above in HPI [facility] Medical History Abrasion of arm, left [...] drinks a day >6 Social History Comments: [facility] rehab Meds Medications and Allergies Allergies fentanyl [...] % (Auto) 15.9 % (.) 12/12/24 12: [place] % (Auto) 7.5 % (.) 12/12/24 12: Eos % (Auto) 4.4 % (.) 12/12/24 12:25 Baso % (Auto) 0.6 % (.) 12/12/24 12: Nucleat RBC Rel Count 0.3 /100 WBC (0-0.5) 12/12/24 12: Neut # (Auto) 3.5 x10E3/uL (1.8-7.7) 12/12/24 12: Lymph # (Auto) 0.8 x10E3/uL (1.00-4.8) L 12/12/24 12: [place] # (Auto) 0.4 x10E3/uL (0.0-0.8) 12/12/24 12:25 [...] pH 5.5 (5.0-9.0) 12/12/24 13:19 Ur Specific [place] 1.004 (1.001-1.030) 12/12/24 13:19 Urine Protein Negative [...] days): 3 Documented By: Akash Mccartney MD 1910 Signed By: <Electronically signed by Akash Mccartney MD> 12/13/24 1746 [facility] Work Phone: 1(662) 567-936410-08-2025 Radiology Diagnostic [facility] Main [place] [address] [place] [address] CT Scan Report Signed Patient: Tavo Wallis Jr MR# : [id number] : 1940 Acct:[id number] Age/Sex: 84 / M ADM Date: 5 Loc: ER Room: Type: [facility] ER Attending Dr: Copies to: Sree Thao DO~ Ordering Provider: Sree Thao DO Date of Service: 12/12/24 CT/CT cervical spine wo con: fall ([id number]) CT/CT head/brain wo con: fall CT head/brain [...] Mahoney M.D. 12/12/2024 1:53 PM Dictation Location: [place] [address] Transcribed By: [facility] 12/12/24 1353 Dictated By: Shaquille Mahoney II, MD 12/12/24 1346 Signed By: 12/12/24 1353 [facility] Work Phone: 1(284) 694-848708-27-2025 Radiology Diagnostic [facility] Main [place] [address] [place] [address] CT Scan Report Signed Patient: Tavo Wallis Jr MR# : [id number] : 1940 Acct:[id number] Age/Sex: 84 / M ADM Date: 5 Loc: CT Room: Type: [facility] Attending Dr: Jovany Stovall MD Copies to: [...] Cardoso M.D. 10/31/2024 5:33 PM Dictation Location: [place] [address] Transcribed By: [facility] 10/31/24 1733 Dictated By: Esa Cardoso DO 10/31/24 1726 Signed By: 10/31/24 1733 [facility]08-27-2025 Radiology Diagnostic study note [facility] Main [place] [address] [place] [address] CT Scan Report Signed Patient: Tavo Wallis Jr MR# : [id number] : 1940 Acct:[id number] Age/Sex: 84 / M ADM Date: 5 Loc: CT Room: Type: [facility] Attending Dr: Jovany Stovall MD Copies to: [...] Cardoso M.D. 10/31/2024 5:26 PM Dictation Location: [place] [address] Transcribed By: [facility] 10/31/241725 Dictated By: Esa Cardoso DO 10/31/24 171 Signed By: 10/31/241725 [facility]08-05-2025 Progress note Author Frankie Johnson [facility] CenterNote Date/TimeAugust 2024 12:52pm[place] [address] Hospitalist Progress Note Signed Patient: Tavo Wallis Jr MR# : [id number] : 1940 Acct:[id number] Age/Sex: 84 / M Adm Date: 5 Loc: Room: [address] [place] [address] Type: ADM IN Attending Dr: Frankie Johnson [...] <Electronically signed by Frankie Johnson DO> 10/09/24 [facility]2 [facility] Work Phone: 1(586) 117-328008-04-2025 Progress note Author Frankie Johnson [facility] CenterNote Date/TimeAugust 2024 8:15[place] [address] Hospitalist Progress Note Signed Patient: Tavo Wallis Jr MR# : [id number] : 1940 Acct:[id number] Age/Sex: 84 / M Adm Date: 5 Loc: Room: [address] [place] [address] Type: ADM IN Attending Dr: Frankie Johnson [...] Tablet PO 10/06/25 06:29 Not Given DAILY.0630 [facility] Magnesium Oxide 400 mg 10/06/24 09:00 10/08/24 [...] signed by Frankie Johnson DO> 10/08/24 0815 [facility] Work Phone: 1(506) 920-263608-03-2025 Progress note Author Franck Gagnon [facility] CenterNote Date/TimeAugust 2024 10:[place] [id number] Hospitalist Progress Note Signed with Addenda Patient: Tavo Wallis Jr MR# : [id number] : 1940 Acct:[id number] Age/Sex: 84 / M Adm Date: 5 Loc: Room: [address] [place] [address] Type: ADM INOo Attending Dr: Franck Gagnon [...] signed by Franck Gagnon DO> 10/07/24 0959 [facility] Work Phone: 1(781) 529-368908-03-2025 Progress note Author Jovany Stovall [facility] CenterNote Date/TimeAugust 2024 9:04[place] [address] Neurosurgery Progress Note Signed Patient: Tavo Wallis Jr MR# : [id number] : 1940 Acct:[id number] Age/Sex: 84 / M Adm Date: 5 Loc: 3T Room: [address] [place] [address] Type: ADM INOo Attending Dr: Franck Gagnon [...] patient up in my office in [address] of the head. He could be seen by my nurse practitioner atthat time. Documented By: Jovany Stovall MD 10/07/24901 Signed By: <Electronically signed by MD Jovany Stovall> 10/07/24903 [facility] Work Phone: 1(173) 753-849008-03-[address] [facility] Work Phone: 1(423) 395-822308-03-[address] [facility] Work Phone: 1(840) 257-839608-02-2025 Progress note Author Michele Knight [facility] CenterNote Date/TimeAugust 2024 8:32[place] [address] Progress Note Signed Patient: Tavo Wallis Jr MR# : [id number] : 1940 Acct:[id number] Age/Sex: 84 / M Adm Date: 5 Loc: 3T Room: [address] [place] [address] Type: ADM INOo Attending Dr: Franck Gagnon [...] <Electronically signed by Michele Knight MD> 10/06/242031 [facility] Work Phone: 1(247) 856-254108-02-[address] [facility] Work Phone: 1(751) 423-724408-02-2025 Progress note Author Franck Gagnon [facility] CenterNote Date/TimeAugust 2024 11:47[place] [address] Hospitalist Progress Note Signed Patient: Tavo Wallis Jr MR# : [id number] : 1940 Acct:[id number] Age/Sex: 84 / M Adm Date: 5 Loc: 3T Room: [address] [place] [address] Type: ADM INOo Attending Dr: Franck Gagnon [...] DO Documented By: Franck Gagnon DO 10/06/24 105 Signed By: <Electronically signed by Franck Gagnon DO> 10/06/24 2934 [facility] Work Phone: 1(634) 829-626908-02-2025 Consult note Author Jovany Stovall [facility] CenterNote Date/TimeAugust 2024 9:00[place] [id number] Neurosurgery Consult Note Signed Patient: Tavo Wallis Jr MR# : [id number] : 1940 Acct:[id number] Age/Sex: 84 / M Adm Date: 5 Loc: 3T Room: [address] [place] [address] Type: ADM INOo Attending Dr: Franck Gagnon [...] negative unless noted below or in HPI [facility] Medical History (Updated 10/06/24 @ 08:53 [...] drinks a day >6 Social History Comments: [facility] Meds Medications and Allergies Allergies fentanyl Allergy [...] % (Auto) 65.2, Lymph % (Auto) 19.8, [place] % (Auto) 9.9, Eos % (Auto) 4.7, Baso % (Auto) 0.4, Nucleat RBC Rel Count 0.2, Neut # (Auto) 3.7, Lymph # (Auto) 1.1, [place] # (Auto) 0.6, Eos # (Auto) 0.3, [...] you. Documented By: Jovany Stovall MD 10/06/24 0875 Signed By: <Electronically signed by MD Jovany Stovall> 10/06/24 09 [facility] Work Phone: 1(248) 540-930008-02-2025 History and physical note Author Frankie Johnson [facility] CenterNote Date/TimeAugust 2024 5:25[place] [address] Hospitalist H&P Signed Patient: Tavo Wallis Jr MR# : [id number] : 1940 Acct:[id number] Age/Sex: 84 / M Adm Date: 5 Loc: 3T Room: [address] [place] [address] Type: ADM INOo Attending Dr: Frankie Johnson [...] risk. Continue fall precautions. Consult to PT/OT. [facility] Medical History Insomnia Hypothyroidism Hypertension Constipation [...] drinks a day >6 Social History Comments: [facility] Meds Medications and Allergies Allergies fentanyl Allergy [...] % (Auto) 19.8 % (.) 10/05/24 19:30 [place] % (Auto) 9.9 % (.) 10/05/24 19:30 Eos % (Auto) 4.7 % (.) 10/05/24 19:30 Baso % (Auto) 0.4 % (.) 10/05/24 19:30 Nucleat RBC Rel Count 0.2 /100 WBC (0-0.5) 10/05/24 19:30 Neut # (Auto) 3.7 x10E3/uL (1.8-7.7) 10/05/24 19:30 Lymph # (Auto) 1.1 x10E3/uL (1.00-4.8) 10/05/24 19:30 [place] # (Auto) 0.6 x10E3/uL (0.0-0.8) 10/05/24 19:30 [...] <Electronically signed by Frankie Johnson DO> 10/06/24524 [facility] Work Phone: 1(136) 803-176508-01-[address] [facility] Work Phone: 1(600) 262-594108-01-[address] [facility] Work Phone: 1(992) 552-285308-01-[address] [facility] Work Phone: 1(841) 805-977807-31-2025 Evaluation note* Diagnosis Onset Date Resolution Status [...] of right heelacute December 12, 2024 2:39pm [facility] Work Phone: 1(584) 477-524207-31-2025 Evaluation note* Diagnosis Onset Date Resolution Status [...] 2:39pmAtrial fibrillation with RVR resolvedOctober 2024 2:39pm [facility] Work Phone: 1(526) 593-726107-15-2025 Evaluation note* Diagnosis Onset Date Resolution Status Admit Date Hx of decompressive lumbar laminectomy acuteJuly 2024 3:12pmNeurogenic claudication due to lumbar spinal stenosis acuteJuly 2024 3:12pmRadicular low back painacuteJuly 2024 3:12pm Severe back painacuteJuly 2024 3:12pmCatheter-associated urinary tract infectionacuteJuly 2024 1:51pmCatheter-associated urinary tract infection acuteAugust 2024 7:05amIntracranial hemorrhageacuteAugust 2024 7:05am Abrasion of arm, leftinactiveAugust 2024 7:05amFallinactiveAugust 2024 7:05amFeverdeletedAugust 2024 7:05am [facility] Work Phone: [phone]) [phone] Evaluation note* Diagnosis Onset Date Resolution Status [...] 2024 9:43amSevere back pain acuteSeptember 2024 9:43am [facility] Work Phone: [phone] 713-969907-15-2025 Evaluation note* Diagnosis Onset Date Resolution Status [...] 2024 9:43amAtrial fibrillation with RVRacuteOctober 2024 2:39pm [facility] Work Phone: [phone] Progress note Author Frankie Reynolds [facility] CenterNote Date/TimeMay 2024 8:51amWelcome[place] [address] Infect. Disease Progress Note Signed Patient: Tavo Wallis Jr MR# : [id number] : 1940 Acct:[id number] Age/Sex: 84 / M Adm Date: 5 Loc: Room: [address] [place] [address] Type: ADM IN Attending Dr: Mario Jordan [...] 300 Mg Tablet) 300 mg PO DAILY [facility] Stop: 07/13/25 08:59 Last Admin: 07/17/24 08:15 Dose: 300 mg Apixaban (Apixaban 5 Mg Tablet) 5 mg PO BID [facility] Stop: 07/15/25 20:59 Last Admin: 07/17/24 08:15 Dose: 5 mg Atorvastatin Calcium (Atorvastatin 40 Mg Tablet) 40 mg PO DAILY [facility] Stop: 07/13/25 08:59 Last Admin: 07/17/24 08:15 Dose: 40 mg Bumetanide (Bumetanide 1 Mg Tablet) 1 mg PO DAILY@0800 [facility] Stop: 07/15/25 07:59 Last Admin: 07/17/24 08:15 Dose: 1 mg Cefepime HCl (Maxipime) 2 gm in 50 mls @ 12.5 mls/hr IV Q12H [facility] Last Admin: 07/17/24 08:15 Dose: 12.5 mls/hr Vancomycin HCl (Vancomycin) 1 gm in 250 mls @ 250 mls/hr IV Q24H [facility] Last Infusion: 07/16/24 12:00 Dose: Infused Levothyroxine Sodium (Levothyroxine 150 Mcg Tablet) 150 mcg PO DAILY.0630 [facility] Stop: 07/13/25 06:29 Last Admin: 07/17/24 08:15 Dose: 150 mcg Magnesium Oxide (Magnesium Oxide 400 Mg Tablet) 400 mg PO DAILY [facility] Stop: 07/13/25 08:59 Last Admin: 07/17/24 08:16 Dose: 400 mg Eszopiclone 3 Mg (Tablet) 3 mg PO QHS [facility] Stop: 07/12/25 21:59 Last Admin: 07/16/24 22:10 Dose: 3 mg Pom (Eszopiclone 3 (Mg Tablet)) 3 mg PO QHS [facility] Stop: 07/20/25 21:59 Oxycodone/Acetaminophen (Oxycodone/Acetaminophen 5-325 Mg [...] By: <Electronically signed by MD Frankie Reynolds> 07/17/2432 [facility] Work Phone: 1([phone]) 406-286005-12-2025 Progress note Author Mario Jordan [facility] CenterNote Date/TimeMay 2024 2:59pmWelcome[place] [address] Hospitalist Progress Note Signed Patient: Tavo Wallis Jr MR# : [id number] : 1940 Acct:[id number] Age/Sex: 84 / M Adm Date: 5 Loc: Room: [address] [place] [address] Type: ADM IN Attending Dr: Mario Jordan [...] gout, cardiomyopathy, history of CHF, [facility] from [facility] for chief concern for hematuria. Patient had [...] Daily weights - Heart healthy diet - PT/OT-chcf facility - Full code SCD for DVT prophylaxis Documented By: Mario Jordan MD 07/16/241454 Signed By: <Electronically signed by Mario Jordan MD> 07/16/241458 [facility] Work Phone: [phone]) 768-248005-12-2025 Progress note Author Frankie Reynolds [facility] CenterNote Date/TimeMay 2024 9:28[place] [address] Infect. Disease Progress Note Signed Patient: Tavo Wallis Jr MR# : [id number] : 1940 Acct:[id number] Age/Sex: 84 / M Adm Date: 5 Loc: Room: [address] [place] [address] Type: ADM IN Attending Dr: Mario Jordan [...] 500 Mg Tablet) 500 mg PO TID [facility] Stop: 07/12/25 21:59 Last Admin: 07/15/24 22:09 [...] 5 Mg Tablet) 5 mg PO BID [facility] Stop: 07/15/25 20:59 Last Admin: 07/15/24 22:09 Dose: 5 mg Atorvastatin Calcium (Atorvastatin 40 Mg Tablet) 40 mg PO DAILY [facility] Stop: 07/13/25 08:59 Last Admin: 07/15/24 08:33 Dose: 40 mg Bumetanide (Bumetanide 1 Mg Tablet) 1 mg PO DAILY@0800 [facility] Stop: 07/15/25 07:59 Last Admin: 07/15/24 08:33 Dose: 1 mg Cefepime HCl (Maxipime) 2 gm in 50 mls @ 12.5 mls/hr IV Q12H [facility] Last Admin: 07/15/24 20:05 Dose: 12.5 mls/hr Vancomycin HCl (Vancomycin) 1 gm in 250 mls @ 250 mls/hr IV Q24H [facility] Levothyroxine Sodium (Levothyroxine 150 Mcg Tablet) 150 mcg PO DAILY.0630 [facility] Stop: 07/13/25 06:29 Last Admin: 07/16/24 05:21 Dose: 150 mcg Magnesium Oxide (Magnesium Oxide 400 Mg Tablet) 400 mg PO DAILY [facility] Stop: 07/13/25 08:59 Last Admin: 07/15/24 08:33 Dose: 400 mg Eszopiclone 3 Mg (Tablet) 3 mg PO QHS [facility] Stop: 07/12/25 21:59 Last Admin: 07/15/24 22:09 Dose: 3 mg Pom (Eszopiclone 3 (Mg Tablet)) 3 mg PO QHS [facility] Stop: 07/20/25 21:59 Oxycodone/Acetaminophen (Oxycodone/Acetaminophen 5-325 Mg Tablet) 1 tab PO Q4H PRN PRN Reason: Pain Scale 4 - 7 Last Admin: 07/13/24 22:05 Dose: 1 tab Polyethylene Glycol (Polyethylene Glycol 3350 17 Gm Powd.Pack) 17 gm PO BID [facility] Stop: 07/14/25 10:04 Last Admin: 07/15/24 20:11 Dose: Not Given Potassium Chloride (Potassium Chloride Er 20 Meq Tab.Er.Prt) 20 meq PO DAILY [facility] Stop: 07/13/25 08:59 Last Admin: 07/15/24 08:33 Dose: 20 meq Sennosides (Sennosides Syrup 8.8 Mg/5 Ml Udc) 8.8 mg PO BID [facility] Stop: 07/14/25 10:04 Last Admin: 07/15/24 20:12 [...] <Electronically signed by MD Frankie Reynolds> 07/16/24927 [facility] Work Phone: [phone]) 490-173305-11-2025 Progress note Author Mario Jordan [facility] CenterNote Date/TimeMay 2024 1:39pmWelcome[place] [address] Hospitalist Progress Note Signed Patient: Tavo Wallis Jr MR# : [id number] : 1940 Acct:[id number] Age/Sex: 84 / M Adm Date: 5 Loc: Room: [address] [place] [address] Type: ADM IN Attending Dr: Mario Jordan [...] gout, cardiomyopathy, history of CHF, [facility] from [facility] for chief concern for hematuria. Patient had [...] Daily weights - Heart healthy diet - PT/OT-chcf facility - Full code SCD for DVT prophylaxis Documented By: Mario Jordan MD 07/15/241334 Signed By: <Electronically signed by Mario Jordan MD> 07/15/241338 [facility] Work Phone: 1([phone]) [phone] Consult note Author Frankie Reynolds [facility] CenterNote Date/TimeMay 2024 9:59[place] [id number] Infect. Disease Consult Note Signed Patient: Tavo Wallis Jr MR# : [id number] : 1940 Acct:[id number] Age/Sex: 84 / M Adm Date: 5 Loc: Room: [address] [place] [address] Type: ADM IN Attending Dr: Mario Jordan [...] negative unless noted below or in HPI [facility] Medical History Insomnia Hypothyroidism Hypertension Constipation [...] drinks a day >6 Social History Comments: [facility] rehab Allergies and Medications Allergies and Active [...] 50 mls @ 12.5 mls/hr IV Q12H [facility] Last Admin: 07/15/24 08:34 Dose: 12.5 mls/hr Levothyroxine Sodium (Levothyroxine 150 Mcg Tablet) 150 mcg PO DAILY.0630 [facility] Stop: 07/13/25 06:29 Last Admin: 07/15/24 08:33 Dose: 150 mcg Magnesium Oxide (Magnesium Oxide 400 Mg Tablet) 400 mg PO DAILY [facility] Stop: 07/13/25 08:59 Last Admin: 07/15/24 08:33 Dose: 400 mg Eszopiclone 3 Mg (Tablet) 3 mg PO QHS [facility] Stop: 07/12/25 21:59 Last Admin: 07/14/24 23:17 Dose: Not Given Pom (Eszopiclone 3 (Mg Tablet)) 3 mg PO QHS [facility] Stop: 07/20/25 21:59 Oxycodone/Acetaminophen (Oxycodone/Acetaminophen 5-325 Mg Tablet) 1 tab PO Q4H PRN PRN Reason: Pain Scale 4 - 7 Last Admin: 07/13/24 22:05 Dose: 1 tab Polyethylene Glycol (Polyethylene Glycol 3350 17 Gm Powd.Pack) 17 gm PO BID [facility] Stop: 07/14/25 10:04 Last Admin: 07/15/24 08:17 [...] @ 12.5 mls/hr IV Q12H [facility] Rx#: [id number] Vancomycin 1.25 gm In Dextrose 275 / 550 5 % in Water 250 ml @ 183.333 mls/hr IV Q12H [facility] Rx#:[id number] Oral 860 / 1110 0 / 0 [...] signed by MD Frankie Reynolds> 07/15/24 0959 [facility] Work Phone: [phone]) 275-597805-10-2025 Progress note Author Mario Jordan [facility] CenterNote Date/TimeMay 2024 12:47pmWelcome[place] [address] Hospitalist Progress Note Signed Patient: Tavo Wallis Jr MR# : [id number] : 1940 Acct:[id number] Age/Sex: 83 / M Adm Date: 5 Loc: Room: [address] [place] [address] Type: ADM IN Attending Dr: Mario Jordan [...] gout, cardiomyopathy, history of CHF, was [facility] from [facility] for chief concern for hematuria. Patient had [...] Daily weights - Heart healthy diet - PT/OT-chcf facility - General Surgery consulted for abscess in the right mid leg lateral aspect - Full code SCD for DVT prophylaxis Documented By: Mario Jordan MD 07/14/24 1232 Signed By: <Electronically signed by Mario Jordan MD> 07/14/24 1246 [facility] Work Phone: [phone]) [phone] Consult note Author Bryce Villeda [facility] CenterNote Date/TimeMay 2024 12:21pmWelcome[place] [address] General Surgery Consult Note Signed Patient: Tavo Wallis Jr MR# : [id number] : 1940 Acct:[id number] Age/Sex: 83 / M Adm Date: 5 Loc: Room: [address] [place] [address] Type: ADM IN Attending Dr: Mario Jordan MD Copies to: MD Sandip Fajardo DO~ History of Present Illness Date of consult: 07/14/2024 Requesting/Attending Provider: Mario Jordan MD History of present illness: Tavo is an 83-year-old male with multiple medical conditions including atrialfibrillation, hypothyroid, hypertension, CHF, who presented to the ER from [facility] for hematuria. The patient was admitted [...] trauma that may have caused the injury. [facility] Medical History Insomnia Hypothyroidism Hypertension Constipation [...] drinks a day >6 Social History Comments: [facility] rehab Allergies & Medications Medications and Allergies [...] 500 Mg Tablet) 500 mg PO TID [facility] Stop: 07/12/25 21:59 Last Admin: 07/14/24 09:05 [...] Mg/4 Ml Vial) 40 mg IV-PUSH BID@0800,1600 [facility] Stop: 07/13/25 07:59 Last Admin: 07/14/24 09:05 Dose: 40 mg Vancomycin HCl 1.25 gm/ (Dextrose) 275 mls @ 183.333 mls/hr IV Q12H [facility] Stop: 07/13/25 17:59 Last Admin: 07/14/24 09:05 Dose: 183.33 mls/hr Cefepime HCl (Maxipime) 2 gm in 50 mls @ 12.5 mls/hr IV Q12H [facility] Last Admin: 07/14/24 09:05 Dose: 12.5 mls/hr Levothyroxine Sodium (Levothyroxine 150 Mcg Tablet) 150 mcg PO DAILY.629 [facility] Stop: 07/13/25 06:29 Last Admin: 07/14/24 06:43 Dose: 150 mcg Magnesium Oxide (Magnesium Oxide 400 Mg Tablet) 400 mg PO DAILY [facility] Stop: 07/13/25 08:59 Last Admin: 07/14/24 09:05 Dose: 400 mg Eszopiclone 3 Mg (Tablet) 3 mg PO QHS [facility] Stop: 07/12/25 21:59 Last Admin: 07/13/24 21:44 Dose: Not Given Pom (Eszopiclone 3 (Mg Tablet)) 3 mg PO QHS [facility] Stop: 07/20/25 21:59 Oxycodone/Acetaminophen (Oxycodone/Acetaminophen 5-325 Mg Tablet) 1 tab PO Q4H PRN PRN Reason: Pain Scale 4 - 7 Last Admin: 07/13/24 22:05 Dose: 1 tab Polyethylene Glycol (Polyethylene Glycol 3350 17 Gm Powd.Pack) 17 gm PO BID [facility] Stop: 07/14/25 10:04 Potassium Chloride (Potassium Chloride Er 20 Meq Tab.Er.Prt) 20 meq PO DAILY [facility] Stop: 07/13/25 08:59 Last Admin: 07/14/24 09:05 Dose: 20 meq Sennosides (Sennosides Syrup 8.8 Mg/5 Ml Udc) 8.8 mg PO BID [facility] Stop: 07/14/25 10:04 Sodium Chloride (Sodium Chloride [...] Neut % (Auto) 84.9, Lymph %(Auto) 7.4, [place] % (Auto) 6.1, Eos % (Auto) 1.4, Baso % (Auto) 0.2, Nucleat RBC Rel Count 0.1, Neut# (Auto) 13.3 H, Lymph # (Auto) 1.2, [place] # (Auto) 1.0 H, Eos # (Auto) [...] Neut % (Auto) 90.2, Lymph %(Auto) 2.7, [place] % (Auto) 6.8, Eos % (Auto) 0.1, Baso % (Auto) 0.2, Nucleat RBC Rel Count 0.1, Neut# (Auto) 24.1 H, Lymph # (Auto) 0.7 L, [place] # (Auto) 1.8 H, Eos # (Auto) [...] % (Auto) N/A, Lymph % (Auto) N/A, [place] % (Auto) N/A, Eos % (Auto) N/A, Baso % (Auto) N/A, Nucleat RBC Rel Count N/A, Neut # (Auto) N/A, Lymph # (Auto) N/A, [place] # (Auto) N/A, Eos # (Auto) N/A, [...] Turbid A, Urine pH , Ur Specific [place] 1.020,Urine Protein , Urine Glucose (UA) , [...] % (Auto) 93.8, Lymph % (Auto) 4.2, [place] % (Auto) 0.4, Eos % (Auto) 1.3, Baso % (Auto) 0.3, Nucleat RBC Rel Count 0.2, Neut # (Auto)6.3, Lymph # (Auto) 0.3 L, [place] # (Auto) 0.0, Eos # (Auto) 0.1, [...] signed by Bryce Villeda DO> 07/14/24 1221 [facility] Work Phone: [phone]) 118-226605-10-2025 Radiology Diagnostic study noteUniversity [facility] Work Phone: [phone]) 493-368305-09-2025 Consult note Author Bayron farnsworth [facility] CenterNote Date/TimeMay 2024 2:49pmWelcome[place] [address] Urology Consult Note Signed Patient: Tavo Wallis Jr MR# : [id number] : 1940 Acct:[id number] Age/Sex: 83 / M Adm Date: 5 Loc: Room: [address] [place] [address] Type: ADM IN Attending Dr: Mario Jordan [...] done and negative except as per HPI [facility] Medical History Insomnia Hypothyroidism Hypertension Constipation [...] drinks a day >6 Social History Comments: [facility] rehab Meds Medications and Allergies Allergies fentanyl [...] in place with clear yellow urine 22 [place] three-way Skin: Warm and dry Extremities: No [...] Neut % (Auto) 90.2, Lymph %(Auto) 2.7, [place] % (Auto) 6.8, Eos % (Auto) 0.1, Baso % (Auto) 0.2, Nucleat RBC Rel Count 0.1, Neut# (Auto) 24.1 H, Lymph # (Auto) 0.7 L, [place] # (Auto) 1.8 H, Eos # (Auto) [...] % (Auto) N/A, Lymph % (Auto) N/A, [place] % (Auto) N/A, Eos % (Auto) N/A, Baso % (Auto) N/A, Nucleat RBC Rel Count N/A, Neut # (Auto) N/A, Lymph # (Auto) N/A, [place] # (Auto) N/A, Eos # (Auto) N/A, [...] Turbid A, Urine pH , Ur Specific [place] 1.020,Urine Protein , Urine Glucose (UA) , [...] % (Auto) 93.8, Lymph % (Auto) 4.2, [place] % (Auto) 0.4, Eos % (Auto) 1.3, Baso % (Auto) 0.3, Nucleat RBC Rel Count 0.2, Neut # (Auto)6.3, Lymph # (Auto) 0.3 L, [place] # (Auto) 0.0, Eos # (Auto) 0.1, [...] unspecified Documented By: Bayron Tom MD 07/13 144 Signed By: <Electronically signed by Bayron Tom MD> 07/13/24 1449 [facility] Work Phone: [phone]) 149-799705-09-2025 Progress note Author Mario Jordan [facility] CenterNote Date/TimeMay 2024 2:38pmWelcome, [place] [address] Hospitalist Progress Note Signed Patient: Tavo Wallis Jr MR# : [id number] : 1940 Acct:[id number] Age/Sex: 83 / M Adm Date: 5 Loc: Room: [address] [place] [address] Type: ADM IN Attending Dr: Mario Jordan [...] gout, cardiomyopathy, history of CHF, was [facility] from [facility] for chief concern for hematuria. Patient had [...] Daily weights - Heart healthy diet - PT/OT-chcf facility - Full code SCD for DVT prophylaxis Documented By: Mario Jordan MD 07/13/24 1435 Signed By: <Electronically signed by Mario Jordan MD> 07/13/24 1432 [facility] Work Phone: [phone]) 341-142005-09-2025 Radiology [facility]Fire[facility] Work Phone: [phone]) [phone] History and physical note Author Mario Jordan [facility] CenterNote Date/TimeMay 2024 6:49pm[place] [id number] Hospitalist H&P Signed Patient: Tavo Wallis Jr MR# : [id number] : 1940 Acct:[id number] Age/Sex: 83 / M Adm Date: 5 Loc: Room: [address] [place] [address] Type: ADM IN Attending Dr: Mario Jordan MD Copies to: MD Sandip Fajardo DO~ HPI DATE OF EXAMINATION: 07/12/24 CHIEF COMPLAINT: Hematuria HISTORY OF PRESENT ILLNESS: This is a 83-year-old male with significant past medical history of A-fib, hypothyroidism, hypertension, BPH on chronic Chou since March 2024 exchangingevery month, hyperlipidemia, gout, cardiomyopathy, history of CHF, was sent [facility] from [facility] for chief concern for hematuria. Patient had [...] negative unless noted below or in HPI [facility] Medical History Insomnia Hypothyroidism Hypertension Constipation [...] % (Auto) 4.2 % (.) 07/12/24 15:00 [place] % (Auto) 0.4 % (.) 07/12/24 15:00 Eos % (Auto) 1.3 % (.) 07/12/24 15:00 Baso % (Auto) 0.3 % (.) 07/12/24 15:00 Nucleat RBC Rel Count 0.2 /100 WBC (0-0.5) 07/12/24 15:00 Neut # (Auto) 6.3 x10E3/uL (1.8-7.7) 07/12/24 15:00 Lymph # (Auto) 0.3 x10E3/uL (1.00-4.8) L 07/12/24 15:00 [place] # (Auto) 0.0 x10E3/uL (0.0-0.8) 07/12/24 15:00 [...] Urine pH (5.0-9.0) 07/12/24 16:19 Ur Specific [place] 1.020 (1.001-1.030) 07/12/24 16:19 Urine Protein mg/dL [...] gout, cardiomyopathy, history of CHF, was sent [facility] from [facility] for chief concern for hematuria. Patient had [...] <Electronically signed by Mario Jordan MD> 07/12/24 2282 [facility] Work Phone: 1([phone]) 601-336505-08-2025 Evaluation note* Diagnosis Onset Date Resolution Status Admit Date Atrial fibrillation acuteMay 2024 5:00pmBPH (benign prostatic hyperplasia)acuteMay 2024 5:00pmCHF exacerbationacuteMay 2024 5:00pmHematuriaacuteMay 2024 5:00pmHypertensionacuteMay 2024 5:00pmHypothyroidismacuteMay 2024 5:00pmHypoxiaacuteMay 2024 5:00pmSepsisacuteMay 2024 5:00pm [facility] Work Phone: [phone]) [phone] Evaluation note* Diagnosis Onset Date Resolution Status Admit Date Abscess acuteMay 2024 5:00pmAbscess of left legacuteMay 2024 5:00pmAtrial fibrillationacuteMay 2024 5:00pmBacteremia due to EnterococcusacuteMay 2024 5:00pmBacteremia due to PseudomonasacuteMay 2024 5:00pmBPH (benign prostatic hyperplasia)acuteMay 2024 5:00pmCHF exacerbationacuteMay 2024 5:00pmComplicated UTI (urinary tract infection)acuteMay 2024 5:00pm HematuriaacuteMay 2024 5:00pmHypertensionacuteMay 2024 5:00pm HypothyroidismacuteMay 2024 5:00pmHypoxiaacuteMay 2024 5:00pmSepsis acuteMay 2024 5:00pm [facility] Work Phone: [phone] 340-124605-08-2025 Evaluation note* Diagnosis Onset Date Resolution Status Admit Date Abscess resolvedMay 2024 5:00pmAbscess of left legresolvedMay 2024 5:00pm Atrial fibrillationresolvedMay 2024 5:00pmBacteremia due to Enterococcus resolvedMay 2024 5:00pmBacteremia due to PseudomonasresolvedMay 2024 5:00pmBPH (benign prostatic hyperplasia)2024 5:00pmCHF exacerbationresolvedMay 2024 5:00pmComplicated UTI (urinary tract infection)resolvedJuly 12, 2024 5:00pmHematuriaresolvedMay 2024 5:00pm HypertensionresolvedMay 2024 5:00pmHypothyroidismresolvedMay 2024 5:00pmHypoxiaresolvedMay 2024 5:00pmSepsisresolvedMay 2024 5:00pm [facility] Work Phone: [phone]) [phone] Evaluation note* Diagnosis Onset Date Resolution Status [...] painacuteJuly 2024 3:12pmSevere back painacuteJuly 2024 3:12pm [facility] Work Phone: 1([phone]) [phone] Evaluation note* Diagnosis Onset Date Resolution Status [...] 2024 3:12pmCatheter-associated urinary tract infectionacuteJuly 2024 1:51pm [facility] Work Phone: [phone]) [phone] Evaluation note* Diagnosis Onset Date Resolution Status [...] 2024 9:13pmFallacuteAugust 2024 9:13pmIntracranial hemorrhageacuteAugust 2024 9:13pm [facility] Work Phone: 1([phone]) [phone] Evaluation note* Diagnosis Onset Date Resolution Status [...] 7:05amFever acuteAugust 2024 7:05amIntracranial hemorrhageacuteAugust 2024 7:05am [facility] Work Phone: [phone]) 348-830905-08-2025 NotePatient Education Urology Hypospadias, Pediatric Hypospadias is [...] Follow these instructions at home: ??? Give wehn-asd-gbqspxo and prescription medicines only as told by [...] Reviewed: 06/23/2020 Monisha Patient Education ? 2023 [email or web address] Radha.[facility] 07-11-2024 NoteThis is a Telehealth Appointment *This visit was conducted via Telehealth with real time interactive synchronized audio and video communication. The patient provided written consent for treatment. The patient understands their rights, the HIPAA risks and that they will be charged accordingly for the services rendered. The patient was seen via telemedicine while they were at: _[place] This telemedicinevisit was conducted due to: transport_ [...] February 24, extended through May 17, 2024 [facility] for UTI, doxycycline at present through July [...] bivalent 12/24/2021 Recorded Comments (more content not included)...[facility]04-22-2025 NoteThis is a Telehealth Appointment *This visit was conducted via Telehealth with real time interactive synchronized audio and video communication. The patient provided written consent for treatment. The patient understands their rights, the HIPAA risks and that they will be charged accordingly for the services rendered. The patient was seen via telemedicine while they were at: _[place] This telemedicinevisit was conducted due to: transport_ [...] region. He is sitting in a wheelchair. Cohu catheter is in. Culture of June 12 [...] Substance Abuse Denies All (more content not included)...[facility]03-29-2025 Note Patient Education Urology Acute Urinary Retention, [...] these instructions at home: Medicines ??? Take rnns-lxe-ltjfpzt and prescription medicines only as told by [...] Reviewed: 11/12/2020 Monisha Patient Education ? 2023 [employer]cell[employer] Carson.[facility] 05-10-2024 NoteThis is a Telehealth Appointment *This visit was conducted via Telehealth with real time interactive synchronized audio and video communication. The patient provided written consent for treatment. The patient understands their rights, the HIPAA risks and that they will be charged accordingly for the services rendered. The patient was seen via telemedicine while they were at: snf This telemedicine visit was conducted due to: [...] the andre [1] he had surgery at [facility] in [place].Postoperatively gained a lot of fluid weight. Also has catheter for urinary retention. Has chronic lymphedema uses pumps at home. Admitted to [place] had MRI that showed fluid collection. History ofA-fib. Surgery was not done there due to need for cardiology services. Transferred to [facility] where he connected with cardiology. Actually went [...] spent on se (more content not included)... [facility]02-20-2025 History of Present illness Narrative* Partha Gabriel, DPM - 04/26/2024 4:32 PM EST Tavo Byrd Jadynroel : 1940 Senior Care: [facility] PCP:dr. aguirre Date last seen: 04/15/2024 in [...] right foot Localized edema Decreased pedal pulses nursing home (current) use of anticoagulants Partha Gabriel DPM [facility] Instructions* Patient Instructions* Partha Gabriel DPM - 04/26/2024 4:32 PM EST Pt not to attempt self care due to high risk. documented in this encounterOhio[facility]02-14-2025 NoteAdmission Information Patient: Tavo Wallis : 1940 Date of Admission: 04/15/2024 03:52:56 Date of Discharge: 04/20/24 Code Status: Full ResuscitationFull Resuscitation PCP: Tavo Mcintyre DO Consult: Celena HARGROVE, Frankie Hernandez; Moises TIDWELL, Crystal Byrd; Aletha TIDWELL, Tye Barrera; Lalo LECHUGA, Gustabo Sharpe; [place] TIDWELL, [facility] Course : This is a 83 Years old Male with past medical history of heart failure with reduced ejection fraction, permanent A-fib, chronic kidney disease stage III AAA, hypothyroidism, chronic back pain with recent surgery about 2 months ago who was transferred from [facility] for wound dehiscence. The reason why patient was transferred was because of his extensive cardiac history and anesthesia at [facility] did not feel comfortable putting him under [...] I reviewed other provider notes. [facility] Discharge Time Spent with Patient: over [...] focal deficits. Psychiatric: Calm (more content not included)...[facility] 04-17-2024 NoteOperative Report DATE OF PROCEDURE: 04/17/2024 PREOPERATIVE DIAGNOSES: 1. 8-weeks status post lumbar decompression and noninstrumented fusion with postoperative fluid collection and wound dehiscence POSTOPERATIVE DIAGNOSES: 1. 8-weeks status post lumbar decompression and noninstrumented fusion with postoperative fluid collection and wound dehiscence OPERATION PERFORMED: 1. Lumbar I&D with wound closure SURGEON: Randi Burris MD APPLIQUER ZIGZAG: ALEXANDREA Corcoran PA-C assisted throughout the procedure [...] signed by Randi Burris MD 04/17/24 15:05 [facility]02-09-2025 NoteChief Complaint Wound dehiscence Reason for Consultation Lumbar wound dehiscence History of Present Illness The patient is a 83-year-old male who is status post lumbar decompression and noninstrumented fusion done 02/20/25 at [facility] with Dr. Man. He was admitted to [place] on Tuesday from office for lumbar I&D due to wound drainage and postoperative fluid collection on MRI. Anesthesia cancelled surgery due to LE swelling, elevated BNP and recent Echo in Feb, no cardiology on staff. He was transferred to [facility] yesterday for surgical clearance. c/o back pain [...] EST Electronically signed by [facility] TIDWELL, Randi Mesa 04/17/2024 14:49 [facility] 04-15-2024 NotePatient seen and examined in AM. Chart reviewed and discussed plan of care with patient and his daughter at bedside. Notably patient had lumbar spine surgery done with Dr Burris, due to concerns for wound dehiscence he was transferred to inpatient hospital for debridement. Patient was [facility] from [facility] as there was some concern for decompensated CHF, no cardiology service was present at [place] patient states he follows with cardiology?[facility] for appropriate clearance and restratification prior to orthopedic surgery. Near his [place] in [place]. He did receive appropriate cardiac clearance prior [...] signed by YordanJuan camara DO 04/15/24 11:09 [facility]02-09-2025 NoteAssessment/Plan Brief Hospital Course Summary: This [...] in our hospital Dr. [place]. Through [facility]. EKG performed patient has a known [...] Illness 83M presented as a transfer from [facility] for cardiac clearance the patient has been [...] time the patient was fluid overloaded at [place] currently he is not in our hospital the patient states that his left lower extremity is chronically erythematous which has beenongoing for the past several years likely from venous congestion. The patient has ejection gxatosgv04% currently he is not on room air. [...] by Moises TIDWELL, Crystal Byrd 04/15/24 06:21 [facility] 03-14-2024 Progress note Author Michele Knight [facility] Center[facility] Date/TimeJanuary 2024 4:13pmWelcome[place] [address] Hospitalist Progress Note Signed Patient: Tavo Wallis Jr MR# : [id number] : 1940 Acct:[id number] Age/Sex: 83 / M Adm Date: 5 Loc: Room: [address] [place] [address] Type: ADM IN Attending Dr: Michele Knight [...] lumbar decompression surgery 2 weeks ago in [facility]. No complications otherwise. PT OT and pain [...] <Electronically signed by Michele Knight MD> 03/14/24 [facility]3 [facility] Work Phone: 1(497) 764-680201-08-2025 [place] [address] Hospitalist Progress Note Signed Patient: Tavo Wallis Jr MR# : [id number] : 1940 Acct:[id number] Age/Sex: 83 / M Adm Date: 5 Loc: 3T Room: [address] [place] [address] Type: ADM IN Attending Dr: Michele Knight [...] tomaintain out of bed to chair. - Chuo catheter replaced today due to high post-void [...] lumbar decompression surgery 2 weeks ago in [facility]. No complications otherwise. PT OT and pain [...] MD 03/14/24 0852 Signed By: 03/14/24 1613 [facility]01-08[facility]2025 Hospital Discharge instructions Additional Instructions SNF to [...] hours -Care to be managed by SNF providers.[facility] Work Phone: 1(570) 510-610001-07-2025 Progress note Author Michele Knight [facility] CenterNote Date/TimeJanuary 2024 6:00pmWelcome, [place] [address] Hospitalist Progress Note Signed Patient: Tavo Wallis Jr MR# : [id number] : 1940 Acct:[id number] Age/Sex: 83 / M Adm Date: 5 Loc: 3T Room: 6Z6631-3 Type: ADM IN Attending Dr: Michele Knight [...] lumbar decompression surgery 2 weeks ago in [facility]. No complications otherwise. PT OT and pain [...] signed by Michele Knight MD> 03/13/24 1800 [facility] Work Phone: [phone]) 995-893301-07-2025 [place] [address] Hospitalist Progress Note Signed Patient: Tavo Wallis Jr MR# : [id number] : 1940 Acct:[id number] Age/Sex: 83 / M Adm Date: 5 Loc: 3T Room: [address] [place] [address] Type: ADM IN Attending Dr: Michele Knight [...] lumbar decompression surgery 2 weeks ago in [facility]. No complications otherwise. PT OT and pain [...] MD 03/13/24 1430 Signed By: 03/13/24 1800 [facility]01-06-2025 Progress note Author Michele Knight [facility] CenterNote Date/TimeJanuary 2024 5:12pDavis[place] [address] Hospitalist Progress Note Signed Patient: Tavo Wallis Jr MR# : [id number] : 1940 Acct:[id number] Age/Sex: 83 / M Adm Date: 5 Loc: 3T Room: [address] [place] [address] Type: ADM IN Attending Dr: Michele Knight [...] lumbar decompression surgery 2 weeks ago in [facility]. No complications otherwise. PT OT and pain [...] <Electronically signed by Michele Knight MD> 03/12/24 6242 [facility] Work Phone: 1(632) 129-416701-06-2025 [place] [address] Hospitalist Progress Note Signed Patient: Tavo Wallis Jr MR# : [id number] : 1940 Acct:[id number] Age/Sex: 83 / M Adm Date: 5 Loc: 3T Room: [address] [place] [address] Type: ADM IN Attending Dr: Michele Knight [...] lumbar decompression surgery 2 weeks ago in [facility]. No complications otherwise. PT OT and pain [...] Knight MD 03/12/241705 Signed By: 03/12/24 1712 [facility]01-05-2025 Progress note Author Mitchell Reyes [facility] Center[facility] Date/TimeJanuary 2024 12:33pm [place] [address] Hospitalist Progress Note Signed Patient: Tavo Wallis Jr MR# : [id number] : 1940 Acct:[id number] Age/Sex: 83 / M Adm Date: 5 Loc: Room: [address] [place] [address] Type: ADM IN Attending Dr: Mitchell Reyes [...] lumbar decompression surgery 2 weeks ago in [facility]. No complications otherwise. PT OT and pain [...] Tablet PO 03/11/25 06:29 Not Given DAILY@0630 [facility] Eszopiclone 3 Mg 3 mg 03/10/24 22:00 [...] signed by Mitchell Reyes MD> 03/11/24 1233 [facility] Work Phone: 1(488) 531-385901-05-2025 [place] [address] Hospitalist Progress Note Signed Patient: Tavo Wallis Jr MR# : [id number] : 1940 Acct:[id number] Age/Sex: 83 / M Adm Date: 5 Loc: Room: [address] [place] [address] Type: ADM IN Attending Dr: Mitchell Reyes [...] lumbar decompression surgery 2 weeks ago in [facility]. No complications otherwise. PT OT and pain [...] Tablet PO 03/11/25 06:29 Not Given DAILY@0630 [facility] Eszopiclone 3 Mg 3 mg 03/10/24 22:00 [...] MD 03/11/24 1231 Signed By: 03/11/24 1233 [facility]01-04-2025 History and physical note Author Mitchell Reyes [facility] Center[facility] Date/TimeJanuary 2024 3:49pmEric [place] [id number] Hospitalist H&P Signed Patient: Tavo Wallis Jr MR# : [id number] : 1940 Acct:[id number] Age/Sex: 83 / M Adm Date: 5 Loc: 3T Room: [address] [place] [address] Type: ADM IN Attending Dr: Mitchell Reyes MD Copies to: MD Opal Peters,DO~ HPI DATE OF EXAMINATION: 03/10/24 HISTORY OF PRESENT ILLNESS: Patient is a 89-year-old male, who was well until approximately 2 weeks ago, when he underwent spinal decompression surgery in [facility] about 2 weeks prior to presentation. [...] pressure measured ultrasonographically is fairly normal at cc water. LV contractility is slightly decreased. [...] Dyslipidemia Gout Sleep apnea Obesity class I [facility] Medical History Insomnia Hypothyroidism Hypertension Constipation [...] % (Auto) 11.9 % (.) 03/10/24 10:00 [place] % (Auto) 9.2 % (.) 03/10/24 10:00 Eos % (Auto) 5.9 % (.) 03/10/24 10:00 Baso % (Auto) 1.4 % (.) 03/10/24 10:00 Nucleat RBC Rel Count 0.0 /100 WBC (0-0.5) 03/10/24 10:00 Neut # (Auto) 6.1 x10E3/uL (1.8-7.7) 03/10/24 10:00 Lymph # (Auto) 1.0 x10E3/uL (1.00-4.8) 03/10/24 10:00 [place] # (Auto) 0.8 x10E3/uL (0.0-0.8) 03/10/24 10:00 [...] signed by Mitchell Reyes MD> 03/10/24 1549 [facility] Work Phone: 1(679) 935-124501-04-2025 [place] [address] Hospitalist H&P Signed Patient: Tavo Wallis Jr MR# : [id number] : 1940 Acct:[id number] Age/Sex: 83 / M Adm Date: 5 Loc: Room: [address] [place] [address] Type: ADM IN Attending Dr: Mitchell Reyes MD Copies to: MD Opal Peters,DO~ HPI DATE OF EXAMINATION: 03/10/24 HISTORY OF PRESENT ILLNESS: Patient is a 89-year-old male, who was well until approximately 2 weeks ago, when he underwent spinal decompression surgery in [facility] about 2 weeks prior to presentation. [...] Bladder is distended on ultrasound exam. A Hcou catheter was inserted in my presence, about 1400 cc urine was present. Heart regular, no gallop, rub or JVD. Peripheral pulses present bilaterally. Central venous pressure measured ultrasonographically is fairly normal at ptexgf16 cc water. LV contractility is slightly decreased. [...] Dyslipidemia Gout Sleep apnea Obesity class I [facility] Medical History Insomnia Hypothyroidism Hypertension Constipation [...] % (Auto) 11.9 % (.) 03/10/24 10:00 [place] % (Auto) 9.2 % (.) 03/10/24 10:00 Eos % (Auto) 5.9 % (.) 03/10/24 10:00 Baso % (Auto) 1.4 % (.) 03/10/24 10:00 Nucleat RBC Rel Count 0.0 /100 WBC (0-0.5) 03/10/24 10:00 Neut # (Auto) 6.1 x10E3/uL (1.8-7.7) 03/10/24 10:00 Lymph # (Auto) 1.0 x10E3/uL (1.00-4.8) 03/10/24 10:00 [place] # (Auto) 0.8 x10E3/uL (0.0-0.8) 03/10/24 10:00 [...] MD 03/10/24 1349 Signed By: 03/10/24 1549 [facility]01-04-2025 Evaluation note* Diagnosis Onset Date Resolution Status Admit Date LIS (acute kidney injury) acuteJanuary 2024 11:26amCOVID-19acuteJanuary 2024 11:26amFatigueacute Eliza 2024 11:26am [facility] Work Phone: [phone]) 671-511912-23-2024 History of Present illness Narrative* Randa King [...] a supine position. COVID-19 & Influenza Combo [[id number]] Collected: 02/25/24 1109 Updated: 02/25/24 1153 Specimen Source: Nasopharyngeal Swab SARS-CoV-2 RNA, RT PCR NOT DETECTED Comment: Influenza A NOT DETECTED Influenza B NOT DETECTED Lactic Acid, Sepsis 1.0 XR CHEST PORTABLE [[id number]] Collected: 02/24/242041 Updated: 02/24/242142 Narrative: 1 view chest x-ray Comparison: None Findings: Nlykmrth-yo-sfsebq cardiomegaly. Small left and trace right pleural effusions. Cephalization pulmonary vasculature with diffusely increased interstitial markings and diffuse hazy alveolar opacity. No pneumothorax. Impression: 1. Wmisuawh-vt-eybavs cardiomegaly with pulmonary edema and pleural effusions. 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 Mailing Manager Goals Time Frame for Long-Term Goals : N/A due to ELOS Following [...] a supine position. COVID-19 & Influenza Combo [[id number]] Collected: 02/25/24 1109 Updated: 02/25/24 1153 Specimen Source: Nasopharyngeal Swab SARS-CoV-2 RNA, RT PCR NOT DETECTED Comment: Influenza A NOT DETECTED Influenza B NOT DETECTED Lactic Acid, Sepsis 1.0 XR CHEST PORTABLE [[id number]] Collected: 02/24/242041 Updated: 02/24/242142 Narrative: 1 view chest x-ray Comparison: None Findings: Fkphqase-bd-rfjklj cardiomegaly. Small left and trace right pleural effusions. Cephalization pulmonary vasculature with diffusely increased interstitial markings and diffuse hazy alveolar opacity. No pneumothorax. Impression: 1. Goupmwua-sh-xsjznn cardiomegaly with pulmonary edema and pleural effusions. [...] Steele OTA - 02/26/2024 1:[address] [facility] ICU STEPDOWN TELEMETRY 4K Occupational Therapy Daily Note Discharge Recommendations: Continue to assess pending progress, ECF with OT, and Patient would benefit from continued OT at discharge Equipment Recommendations: No continue to monitor Time In: 1316 Time Out: 1357 Timed Code Treatment Minutes: 41 Minutes Minutes: 41 Date: 02/26/2024 Patient Name: Tavo Wallis, Gender: male Room: [address] [place] [address] : 1940 (83 y.o.) Referring Practitioner: Randi [...] in the past year?: Yes (~5) Active Smeller: Yes (Daughter able to transport until cleared to drive again.) Mode of Transportation: Truck Additional 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 Long-Term Goals Time Frame for Mailing Manager Goals : None due to ELOS Following session, patient left in safe position with all fall risk precautions in place. 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 Functional Outcome Measures: [facility] (6 CLICK) BASIC MOBILITY [facility] Inpatient Mobility Raw Score : 13 [facility] Inpatient T-Scale Score : 36.74 Modified [place] Scale: Not Applicable ASSESSMENT: Assessment: fair progression, [...] Supervision in orderto assist with home entry. Long-Term Goals Time Frame for Long-Term Goals : N/A due to ELOS Following [...] examined independently by me. Agree with Physician regulator mechanic note above. Discussed w/ patient's daughter. Continue [...] a supine position. COVID-19 & Influenza Combo [[id number]] Collected: 02/25/24 1109 Updated: 02/25/24 1153 Specimen Source: Nasopharyngeal Swab SARS-CoV-2 RNA, RT PCR NOT DETECTED Comment: Influenza A NOT DETECTED Influenza B NOT DETECTED Lactic Acid, Sepsis 1.0 XR CHEST PORTABLE [[id number]] Collected: 02/24/242041 Updated: 02/24/242142 Narrative: 1 view chest x-ray Comparison: None Findings: Nbrzhwcg-sb-vqqgfm cardiomegaly. Small left and trace right pleural effusions. Cephalization pulmonary vasculature with diffusely increased interstitial markings and diffuse hazy alveolar opacity. No pneumothorax. Impression: 1. Wmwtofbc-lq-ontjbf cardiomegaly with pulmonary edema and pleural effusions. [...] Russell SLP - 02/25/2024 1:24 PM EST [facility] SPEECH THERAPY STRZ ICU STEPDOWN TELEMETRY 4K Clinical Swallow Evaluation + Dysphagia Therapy Discharge Recommendations: Home with Home Exercise Program DIET ORDER RECOMMENDATIONS AFTER EVALUATION: Regular, thin liquids Strategies: Full Upright Position, Small Bite/Sip, Pulmonary Monitoring, Alternate Solids and Liquids, Limit Distractions, and Monitor for Fatigue DIALYSIS CLINICAL MANAGER Individual Minutes Time In: 930 Time Out: 947 Minutes: 17 Timed Code Treatment Minutes: 0 Minutes CSE: 9 minutes Dysphagia Therapy: 8 minutes Date: 02/25/2024 Patient Name: Tavo Wallis CSN: [id number] : 1940 (83 y.o.) Gender: male Referring Physician: Randa King MD Diagnosis: Lumbar stenosis with neurogenic claudication History of Present Illness/Injury: Patient admitted to [facility] for above dx. Per chart review, [...] Evaluation of Education: Verbalizes understanding PLAN: Skilled DIALYSIS CLINICAL MANAGER intervention on acute care 1-3 x per [...] assist with mobility and overall pulmonary health ASSISTED GOALS: No LTGs established due to short ELOS. Lula Russell M.A., [facility]-DIALYSIS CLINICAL MANAGER [id number] * Gustabo May PA - 02/25/2024 8:05 [...] Solorio, OT - 02/24/2024 2:[address] 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 Mailing Manager Goals Time Frame for Mailing Manager Goals : None due to ELOS Following [...] Am labs. 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 Functional Outcome Measures: [facility] (6 CLICK) BASIC MOBILITY [facility] Inpatient Mobility Raw Score : 14 [facility] Inpatient T-Scale Score : 38.1 Modified [place] [...] Supervision in orderto assist with home entry. Long-Term Goals Time Frame for Long-Term Goals : N/A due to ELOS Following [...] EST Spiritual Health History and Assessment/Progress Note [facility] Loneliness/Social Isolation, , , Name: Tavo Wallis Age: 83 y.o. Sex: male Language: [place] Citizen Oriental Orthodox: None Lumbar stenosis with neurogenic claudication Date: 02/23/2024 Total Time Calculated: (P) 8 min Spiritual Assessment [facility] STEPDOWN TELEMETRY 4K Referral/Consult From: Nurse [...] Therapy just started working with patient. [place] back to complete echo once therapy is completed. * Mimi Solo OT - 02/23/2024 10:[address] 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 Modified [place] Scale: Not Applicable ASSESSMENT: Activity Tolerance: Patient [...] with SBA to complete sink side grooming. Long-Term Goals Time Frame for Long-Term Goals : None due to ELOS Following session, patient left in safe position with all fall risk precautions in place. 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 Functional Outcome Measures: [facility] (6 CLICK) BASIC MOBILITY [facility] Inpatient Mobility Raw Score : 14 [facility] Inpatient T-Scale Score : 38.1 Modified [place] [...] Supervision in orderto assist with home entry. 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 Long-Term Goals Time Frame for Mailing Manager Goals : N/A due to ELOS Following session, patient left in safe position with all fall risk precautions in place. 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 and uses various [...] to visually scan in room for targets [facility] Inpatient Daily Activity Raw Score: 14 [facility] Inpatient ADL T-Scale Score : 33.39 ADL Inpatient CMS 0-100% Score: 59.67 Activity Tolerance: Patient tolerance of treatment: Good treatment tolerance, Limited by fatigue, Limited by medical complications, and Reduced activity pace Functional Outcome Measures: [facility] Inpatient Daily Activity Raw Score: 14 [facility] Inpatient ADL T-Scale Score : 33.39 ADL Inpatient CMS 0-100% Score: 59.67 ADL Inpatient CMS G-Code Modifier : CK Modified [place]: Premorbid Functional Status: Not Applicable Current Functional [...] with SBA to complete sink side grooming. Long-Term Goals Time Frame for Mailing Manager Goals : None due to [facility]: [facility] T-Scale Score : 33.39 [...] and alert, cooperative. States he is at [facility] for back surgery, knows his surgeons name [...] sat 77% on 6L NC. Respirations labored. CAN DRYER at pt bedside and placed NPA in [...] with eyes closed comfortably. VSS. 1745: Called [facility] to have nurse update family about room number and that room was awaiting to be cleaned. Stat clean placed on room 1810: Repositioned patient at this time and provided more water, tolerated well 182: Pt resting off and on with eyes closed, easily awakens to voice. 1830: [facility] called pacu for update per family request, update given that pt continuing to await room to finish cleaning 185: Called family to update of patients room being ready and patient being in for transport 185: Emptied 150mls from hemovac drain 185: Pt transported to in stable condition. VSS * Karen Ambrocio RN - 02/21/2024 7:57 AM EST Patient admitted to [facility] room 3 with family at bedside. Bed in low position side rails up call lightin reach. Patient denies questions at this time. Abigail (daughter) [phone] * Edilma Abdul RN - 02/20/2024 9:01 AM EST Called for clearance from Dr Mcintyre * Edilma Abdul RN - 02/15/2024 12:11 PM EST Called [facility] medical records for labs, CXR, EKG and any other testing pt has done for surgery. Had to leave message * Edilma Abdul RN - 02/15/2024 9:57 AM EST PAT call attempted, patient unavailable, left message to please call us back at your earliest convenience; [phone] * Edilma Abdul RN - 02/14/2024 3:[address] Burris for labs, EKG, clearance, and CXR documented in this encounterBon [facility] Discharge instructions* Discharge Instructions* Gustabo May [...] already scheduled for an appointment - ext [phone] If any concerning symptoms, such as calf [...] at most local grocery stores, pharmacies, and [employer]. If you have any questions about your [...] directive for healthcare treatment Durable power of business agent for health care;Living will Yes, copy in chart -- -- -- Admitting Physician: Randi Burris MD PCP: Opal Ga DO Discharging Nurse: Discharging Hospital Unit/Room#: 4K-25/025-A Discharging Unit Phone Number: Emergency Contact: Extended Emergency Contact Information Primary Emergency Contact: DamiannixonNicole Mobile Relation: Child Rubber Engraver needed? No Past Surgical History: Past Surgical History: Procedure Laterality Date BACK SURGERY x2 lumbar area EYE SURGERY Bilateral catract JOINT REPLACEMENT Bilateral both kness, left hip, both shoulders rotator cuff, LUMBAR FUSION N/A 02/21/2024 L2-5 Decompression and Non Instrumented Fusion performed by Randi Burris MD at [facility] OR Immunization History: Immunization History Administered Date(s) [...] Assisted Dressing Assisted Toileting Assisted Feeding Assisted Bundler Assisted Med Delivery whole Wound Care Documentation [...] Status Date: 02/22/2024 Readmission Risk Assessment Score: [facility] RISK OF UNPLANNED READMISSION 2.0 15.2 Total Score Discharging to Facility/ Agency Name: [facility] Address: [address] [place] [address] Dialysis Facility (if applicable) Name: Address: Dialysis Schedule: Phone: Fax: Rapid Outsole Stitcher/Book Shelver signature: PHYSICIAN SECTION Prognosis: Good Condition at Discharge: Stable Rehab Potential (if transferring to Rehab): Good Recommended Labs or Other Treatments After Discharge: complete course of antibiotic, PT/OT Physician Certification: I certify the above information and transfer of Tavo Wallis is necessary for the continuing treatment of the diagnosis listed and that he requires Correction Facility for less 30 days. Update Admission H&P: No change in H&P PHYSICIAN SIGNATURE: documented in this encounterBon [facility] History of Present illness Narrative* Tavo Mcintyre, [...] 2 3. Chronic atrial fibrillation (Multi) 4. nursing home current use of anticoagulant therapy 5. Primary [...] exam, discussion and plan. [facility] Work Phone: 1([phone]) 532-991212-12-2024 Instructions* Patient Instructions* Viridiana Walden LPN - [...] from a cardiac standpoint documented [facility] Work Phone: 1([phone]) 234-365712-09-2024 Evaluation note* Author Danna Melgar [facility] 2023 9:28amThe above note written by Danna Melgar LPN, acting as human recorder, note dictated by Dr. Opal Ga. [facility] Work Phone: 1(298) 246-640805-08-2024 History of Present illness Narrative* Tavo Myranda DO Francisco Javier - 07/13/2023 9:40 AM EDT Subjective Tavo Wallis is a 82 y.o. male Chief Complaint Annual Exam 82-year-old gentleman returns for follow-up. He is doing well from a cardiovascular standpoint he is debilitated by his significant osteoarthritis, recent peripheral nerve/ablations performed at [facility] this past year. He has persistent edema [...] exam, discussion and plan. documented in this [facility] Work Phone: 1([phone]) 675-324705-08-2024 Instructions* Patient Instructions* Hermilo Bell MA - [...] Fall Prevention Education Given documented in [facility] Work Phone: 1([phone]) 237-482701-12-2024 Evaluation note* Encounter Date Diagnosis Assessment Notes Treatment Notes Treatment Clinical Notes Mar, Lumbar degenerative disc disease (ICD-10 - M51.36) Patient is following with pain management at [place], had a recent branch block. He is [...] above medication. We will continue to monitor. [facility] Other 10-02-2023 Evaluation note* Encounter Date Diagnosis Assessment Notes Treatment Notes Treatment Clinical Notes Dec, Insomnia (ICD-10 - G47.00) [facility] Other 09-26-2023 Evaluation note* Encounter Date Diagnosis Assessment Notes Treatment Notes Treatment Clinical Notes Nov, Gout (ICD-10 - M10.9) [facility] Other 07-12-2023 Evaluation note* Encounter Date Diagnosis [...] the care of pain management out of [place]. States the pain is slightly improved and [...] to thin out the secretions. Rx sent [facility] Other 07-05-2023 Evaluation note* Encounter Date Diagnosis Assessment Notes Treatment Notes Treatment Clinical Notes Sep, Hyperlipidemia (ICD-10 - E78.5) Sep,Insomnia (ICD-10 - G47.00) Sep,Hypothyroidism, unspecified (ICD-10 - E03.9) [facility] Other 04-03-2023 Evaluation note* Encounter Date Diagnosis Assessment Notes Treatment Notes Treatment Clinical Notes Jun, Lumbar degenerative disc disease (ICD-10 - M51.36) I am in agreement the patient keep the above medication on hand to use sparingly for back pain and to continue following with Pain Management. The patient states he does still go to the [facility] for hunting trips with a [...] Jun,Screening for prostate cancer (ICD-10 - Z12.5) [facility] Other 03-28-2023 Evaluation note* Encounter Date Diagnosis Assessment Notes Treatment Notes Treatment Clinical Notes May, Insomnia (ICD-10 - G47.00) [facility] Other 03-07-2023 Evaluation note* Encounter Date Diagnosis Assessment Notes Treatment Notes Treatment Clinical Notes May, Atrial fibrillation (ICD-10 - I4 8.91) [facility] Other 02-09-2023 NoteCONSULTATION CONSULTATION DATE: 04/15/2022 HISTORY [...] in the clinic in three months' time.[id number] Evaluation note* Encounter Date Diagnosis Assessment Notes [...] wear a hat out in the sun. [facility] Other 12-29-2022 Evaluation note* Encounter Date Diagnosis Assessment Notes Treatment Notes Treatment Clinical Notes Feb, Insomnia (ICD-10 - G47.00) Feb,Hypothyroidism, unspecified (ICD-10 - E03.9) [facility] Other 12-28-2022 Evaluation note* Encounter Date Diagnosis Assessment Notes Treatment Notes Treatment Clinical Notes Feb, Insomnia (ICD-10 - G47.00) Feb,Hypothyroidism, unspecified (ICD-10 - E03.9) [facility] Other 12-15-2022 NoteCONSULTATION CONSULTATION DATE: 02/18/2022 HISTORY [...] move forward with the plan of care.[facility] [id number] Evaluation note* Encounter Date Diagnosis Assessment Notes [...] upon examination, continue using the above powder. [facility] Other 11-11-2022 Progress note Author Raji [facility] January 15, 2022 4:51pmNote Date/TimeNov2021 4:51pmWelcome[place] [address] Hospitalist Progress Note Signed Patient: Tavo Wallis Jr MR# : [id number] : 1940 Acct:[id number] Age/Sex: 81 / M Adm Date: 2 Loc: 3T Room: [address] [place] [address] Type: ADM IN Attending Dr: Raji Ennis [...] mg 01/09/22 14:41 Bisacodyl 10 Mg Supp.Rect WI 01/09/23 14:40 DAILY PRN Constipation Bisacodyl 10 [...] Propionate 1 spray 01/09/22 15:17 Fluticasone Propionate [place] 120 [place]/16 Gm Bottle NARES-BOTH 01/09/23 15:16 QHS PRN [...] set up for tomorrow. Documented By: Raji nEnis MD 01/15/22 7549 Signed By: <Electronically signed by Raji Ennis MD> 01/15/22 1651 [facility] Work Phone: 1([phone]) 394-262711-11-2022 Progress note Author Frankie Reynolds [facility] January 15, 2022 12:21pmNote Date/TimeNov2021 12:21pmWelcome[place] [address] Infect. Disease Progress Note Signed Patient: Tavo Wallis Jr MR# : [id number] : 1940 Acct:[id number] Age/Sex: 81 / M Adm Date: 2 Loc: Room: 4U8146-3 Type: ADM IN Attending Dr: Raji Ennis [...] 300 Mg Tablet) 300 mg PO DAILY [facility] Stop: 01/10/23 08:59 Last Admin: 01/15/22 08:46 Dose: 300 mg Apixaban (Apixaban 5 Mg Tablet) 5 mg PO BID [facility] Stop: 01/09/23 20:59 Last Admin: 01/15/22 08:46 Dose: 5 mg Atorvastatin Calcium (Atorvastatin 40 Mg Tablet) 40 mg PO QHS ANIBAL Stop: 01/09/23 21:59 Last Admin: 01/14/22 21:32 Dose: 40 mg Bisacodyl (Bisacodyl 10 Mg Supp.Rect) 10 mg WI DAILY PRN PRN Reason: Constipation Stop: 01/09/23 14:40 Bisacodyl (Bisacodyl 5 Mg Tablet.Dr) 10 mg PO DAILY PRN PRN Reason: Constipation Stop: 01/09/23 14:40 Last Admin: 01/14/22 19:57 Dose: 10 mg Bumetanide (Bumetanide 1 Mg Tablet) 1 mg PO DAILY@0800 [facility] Stop: 01/14/23 15:59 Last Admin: 01/15/22 08:46 Dose: 1 mg Docusate Sodium (Docusate 100 Mg Capsule) 100 mg PO BID [facility] Stop: 01/09/23 20:59 Last Admin: 01/15/22 08:46 Dose: 100 mg Fluticasone Propionate (Fluticasone Propionate [place] 120 [place]/16 Gm Bottle) 1 spray NARES-BOTH QHSPRN PRN Reason: Nasal Congestion Stop: 01/09/23 15:16 Magnesium Sulfate (Magnesium Sulf 2gm-*Swfi*) 2 gm in 50 mls @ 25 mls/hr IV DAILY PRN PRN Reason: Magnesium Level < 1.5 Stop: 01/09/23 14:40 Levothyroxine Sodium (Levothyroxine 150 Mcg Tablet) 150 mcg PO DAILY@0630 [facility] Stop: 01/10/23 06:29 Last Admin: 01/15/22 06:38 [...] 3 Mg (Tablet) 3 mg PO HS [facility] Stop: 01/11/23 21:59 Last Admin: 01/14/22 21:32 Dose: 3 mg Nystatin (Nystatin 100,000 Unit/Gram Powder 15 Gm Bottle) 1 applic TOPICAL TID [facility] Stop: 01/09/23 21:59 Last Admin: 01/15/22 08:46 [...] 20 Meq Tab.Er.Prt) 20 meq PO QPM [facility] Stop: 01/09/23 20:59 Last Admin: 01/14/22 21:32 [...] signed by MD Frankie Reynolds> 01/15/22 1221 [facility] Work Phone: [phone] 262-289611-10-2022 Progress note Author Raji Ennis [facility] January 14, 2022 5:43pmNote Date/TimeNov2021 5:43pmWelcome, [place] [address] Hospitalist Progress Note Signed Patient: Tavo Wallis Jr MR# : [id number] : 1940 Acct:[id number] Age/Sex: 81 / M Adm Date: 2 Loc: Room: [address] [place] [address] Type: ADM IN Attending Dr: Raji Ennis [...] mg 01/09/22 14:41 Bisacodyl 10 Mg Supp.Rect WI 01/09/23 14:40 DAILY PRN Constipation Bisacodyl 10 [...] Propionate 1 spray 01/09/22 15:17 Fluticasone Propionate [place] 120 [place]/16 Gm Bottle NARES-BOTH 01/09/23 15:16 QHS PRN [...] 21:17 Dextrose IV 01/14/22 23:59 Infused Q24H [facility] Infusion Levothyroxine Sodium 150 mcg 01/10/22 06:30 01/14/22 05:54 Levothyroxine 150 Mcg Tablet PO 01/10/23 06:29 150 mcg DAILY@0630 [facility] Administration Magnesium Hydroxide 30 ml 01/09/22 14:41 [...] <Electronically signed by Raji Ennis MD> 01/14/221742 [facility] Work Phone: 1(497) 569-414011-10-2022 Progress note Author Frankie Reynolds [facility] January 14, 2022 9:39amNote Date/TimeNov2021 9:39amWelcome[place] [address] Infect. Disease Progress Note Signed Patient: Tavo Wallis Jr MR# : [id number] : 1940 Acct:[id number] Age/Sex: 81 / M Adm Date: 2 Loc: Room: [address] [place] [address] Type: ADM IN Attending Dr: Raji Ennis [...] Appearance Clear Urine pH 5.5 Ur Specific [place] 1.012 Urine Protein 30 H Urine Glucose [...] 300 Mg Tablet) 300 mg PO DAILY [facility] Stop: 01/10/23 08:59 Last Admin: 01/14/22 08:04 Dose: 300 mg Apixaban (Apixaban 5 Mg Tablet) 5 mg PO BID [facility] Stop: 01/09/23 20:59 Last Admin: 01/14/22 08:04 Dose: 5 mg Atorvastatin Calcium (Atorvastatin 40 Mg Tablet) 40 mg PO QHS ANIBAL Stop: 01/09/23 21:59 Last Admin: 01/13/22 21:26 Dose: 40 mg Bisacodyl (Bisacodyl 10 Mg Supp.Rect) 10 mg WI DAILY PRN PRN Reason: Constipation Stop: 01/09/23 14:40 Bisacodyl (Bisacodyl 5 Mg Tablet.Dr) 10 mg PO DAILY PRN PRN Reason: Constipation Stop: 01/09/23 14:40 Last Admin: 01/13/22 21:26 Dose: 10 mg Bumetanide (Bumetanide 1 Mg Tablet) 1 mg PO BID@0800,1600 [facility] Stop: 01/13/23 15:59 Docusate Sodium (Docusate 100 Mg Capsule) 100 mg PO BID [facility] Stop: 01/09/23 20:59 Last Admin: 01/14/22 08:03 Dose: 100 mg Fluticasone Propionate (Fluticasone Propionate [place] 120 [place]/16 Gm Bottle) 1 spray NARES-BOTH QHSPRN PRN Reason: Nasal Congestion Stop: 01/09/23 15:16 Magnesium Sulfate (Magnesium Sulf 2gm-*Swfi*) 2 gm in 50 mls @ 25 mls/hr IV DAILY PRN PRN Reason: Magnesium Level < 1.5 Stop: 01/09/23 14:40 Cefepime HCl (Maxipime) 2 gm in 50 mls @ 100 mls/hr IV Q12H [facility] Last Admin: 01/14/22 03:05 Dose: 100 mls/hr Vancomycin HCl 1.25 gm/ (Dextrose) 275 mls @ 183.333 mls/hr IV Q24H [facility] Stop: 01/13/23 18:59 Last Infusion: 01/13/22 21:17 Dose: Infused Levothyroxine Sodium (Levothyroxine 150 Mcg Tablet) 150 mcg PO DAILY@0630 [facility] Stop: 01/10/23 06:29 Last Admin: 01/14/22 05:54 Dose: 150 mcg Magnesium Hydroxide (Magnesium Hydroxide Susp 30 Ml Udc) 30 ml PO BID PRN PRN Reason: Constipation Stop: 01/09/23 14:40 Magnesium Oxide (Magnesium Oxide 400 Mg Tablet) 400 mg PO DAILY [facility] Stop: 01/10/23 08:59 Last Admin: 01/14/22 08:04 Dose: 400 mg Nitroglycerin (Nitroglycerin 0.4 Mg Tab.Subl) 0.4 mg SUBLINGUAL Q5MIN.X3 PRN PRN Reason: Chest Pain Stop: 01/09/23 14:40 Pom Eszopiclone 3 Mg (Tablet) 3 mg PO HS [facility] Stop: 01/11/23 21:59 Last Admin: 01/13/22 21:27 Dose: 3 mg Nystatin (Nystatin 100,000 Unit/Gram Powder 15 Gm Bottle) 1 applic TOPICAL TID [facility] Stop: 01/09/23 21:59 Last Admin: 01/14/22 08:04 [...] By: <Electronically signed by MD Frankie Reynolds> 01/14/2251 [facility] Work Phone: 1([phone]) 143-250911-09-2022 Progress note Author Mani Dickens [facility] January 13, 2022 6:10pmNote Date/TimeNov2021 8:13[place] [id number] Neurology Progress Note Signed with Addenda Patient: Tavo Wallis Jr MR# : [id number] : 1940 Acct:[id number] Age/Sex: 81 / M Adm Date: 2 Loc: Room: [address] [place] [address] Type: ADM IN Attending Dr: Raji Ennis [...] extremities * Unable to test finger-nose or dtug-ga-todc due to drowsiness REFLEX EXAM: * 1/4 [...] Therapy Recommendations: OT Recommendations OT Recommended Discharge Correction Facility Location OT Recommended Services at Physical Therapy,Occupational Therapy Discharge PT Recommendations PT Recommended Discharge Correction Facility Location PT Recommended Services at Physical [...] <Electronically signed by MEI Knight> 01/13/22 1520 [facility] Work Phone: 1([phone]) 712-254411-09-2022 Progress note Author Raji [facility] January 13, 2022 3:44pmNote Date/TimeNovember 2021 3:27pmWelcome[place] [address] Hospitalist Progress Note Signed Patient: Tavo Wallis MR# : [id number] : 1940 Acct:[id number] Age/Sex: 81 / M Adm Date: 2 Loc: 3T Room: [address] [place] [address] Type: ADM IN Attending Dr: Raji Ennis [...] mg 01/09/22 14:41 Bisacodyl 10 Mg Supp.Rect WI 01/09/23 14:40 DAILY PRN Constipation Bisacodyl 10 mg 01/09/22 14:41 01/12/22 08:22 Bisacodyl 5 Mg Tablet.Dr PO 01/09/23 14:40 10 mg DAILY PRN Administration Constipation Bumetanide 1 mg 01/13/22 16:00 Bumetanide 1 Mg Tablet PO 01/13/23 15:59 BID@0800,1600 [facility] Docusate Sodium 100 mg 01/09/22 21:00 01/13/22 09:43 Docusate 100 Mg Capsule PO 01/09/23 20:59 100 mg BID ANIBAL Administration Fluticasone Propionate 1 spray 01/09/22 15:17 Fluticasone Propionate [place] 120 [place]/16 Gm Bottle NARES-BOTH 01/09/23 15:16 QHS PRN [...] signed by Raji Ennis MD> 01/13/22 1544 [facility] Work Phone: [phone]) 734-691011-09-2022 Consult note Author Frankie Reynolds [facility] January 13, 2022 10:45amNote Date/TimeNovember 2021 10:45amEric [place] [id number] Infect. Disease Consult Note Signed Patient: Tavo Wallis Jr MR# : [id number] : 1940 Acct:[id number] Age/Sex: 81 / M Adm Date: 2 Loc: 3T Room: [address] [place] [address] Type: ADM IN Attending Dr: Raji Ennis [...] negative unless noted below or in HPI [facility] Attestation Statement: The following information was [...] Bisacodyl (Bisacodyl 10 Mg Supp.Rect) 10 mg WI DAILY PRN PRN Reason: Constipation Stop: 01/09/23 14:40 Bisacodyl (Bisacodyl 5 Mg Tablet.Dr) 10 mg PO DAILY PRN PRN Reason: Constipation Stop: 01/09/23 14:40 Last Admin: 01/12/22 08:22 Dose: 10 mg Bumetanide (Bumetanide 1 Mg/4 Ml Vial) 1 mg IV-PUSH BID@0800,1600 [facility] Stop: 01/13/23 07:59 Last Admin: 01/13/22 09:43 Dose: 1 mg Docusate Sodium (Docusate 100 Mg Capsule) 100 mg PO BID [facility] Stop: 01/09/23 20:59 Last Admin: 01/13/22 09:43 Dose: 100 mg Fluticasone Propionate (Fluticasone Propionate [place] 120 [place]/16 Gm Bottle) 1 spray NARES-BOTH QHSPRN PRN Reason: Nasal Congestion Stop: 01/09/23 15:16 Magnesium Sulfate (Magnesium Sulf 2gm-*Swfi*) 2 gm in 50 mls @ 25 mls/hr IV DAILY PRN PRN Reason: Magnesium Level < 1.5 Stop: 01/09/23 14:40 Cefepime HCl (Maxipime) 2 gm in 50 mls @ 100 mls/hr IV Q12H [facility] Last Admin: 01/13/22 03:07 Dose: 100 mls/hr Levothyroxine Sodium (Levothyroxine 150 Mcg Tablet) 150 mcg PO DAILY@0630 [facility] Stop: 01/10/23 06:29 Last Admin: 01/13/22 06:26 Dose: 150 mcg Magnesium Hydroxide (Magnesium Hydroxide Susp 30 Ml Udc) 30 ml PO BID PRN PRN Reason: Constipation Stop: 01/09/23 14:40 Magnesium Oxide (Magnesium Oxide 400 Mg Tablet) 400 mg PO DAILY [facility] Stop: 01/10/23 08:59 Last Admin: 01/13/22 09:43 Dose: 400 mg Nitroglycerin (Nitroglycerin 0.4 Mg Tab.Subl) 0.4 mg SUBLINGUAL Q5MIN.X3 PRN PRN Reason: Chest Pain Stop: 01/09/23 14:40 Pom Eszopiclone 3 Mg (Tablet) 3 mg PO HS [facility] Stop: 01/11/23 21:59 Last Admin: 01/12/22 22:51 Dose: 3 mg Nystatin (Nystatin 100,000 Unit/Gram Powder 15 Gm Bottle) 1 applic TOPICAL TID [facility] Stop: 01/09/23 21:59 Last Admin: 01/13/22 09:43 [...] signed by MD Frankie Reynolds> 01/13/22 1044 [facility] Work Phone: [phone] 401-391311-08-2022 Progress note Author W Be Mcintyre [facility] January 12, 2022 6:11pmNote Date/TimeNov2021 6:11pmWelcome[place] [address] Cardiology Progress Note Signed Patient: Tavo Wallis Jr MR# : [id number] : 1940 Acct:[id number] Age/Sex: 81 / M Adm Date: 2 Loc: Room: [address] [place] [address] Type: ADM IN Attending Dr: Raji Ennis [...] % (Auto) 76.3 Lymph % (Auto) 12.2 [place] % (Auto) 9.1 Eos % (Auto) 1.9 Baso % (Auto) 0.5 Neut # (Auto) 7.7 Lymph # (Auto) 1.2 [place] # (Auto) 0.9 H Eos # (Auto) [...] 2.9 Globulin (PEP) 2.4 Albumin/Globulin (PEP) 1.2 Tcbgv-1-Bzsmaqzcp 0.4 Tsurx-0-Kycwkmmfc 0.7 Beta Globulins 0.6 L Gamma Globulins 0.8 M-Franky Not observed PEP Note IgG 816 IgA 171 IgM 105 Serum Immunofixation 01/12/22 06:42 Corrected WBC Uncorrected WBC Count RBC Hgb Hct MCV MCH MCHC RDW Plt Count MPV Neut % (Auto) Lymph % (Auto) [place] % (Auto) Eos % (Auto) Baso % (Auto) Neut # (Auto) Lymph # (Auto) [place] # (Auto) Eos # (Auto) Baso # (Auto) Nucleated RBC % (auto) PHA Creatinine Clear Sodium Potassium Chloride Carbon Dioxide Anion Gap BUN Creatinine Est GFR ( Amer) Est GFR (Non-Af Amer) Glucose Calcium C-Reactive Prot, Quant 8.4 H Serum Total Protein Albumin (Send Out) Globulin (PEP) Albumin/Globulin (PEP) Eayuq-2-Fdvwdlpwp Pfxvm-8-Duddjybuq Beta Globulins Gamma Globulins M-Franky PEP Note [...] signed by Bhupinder Mcintyre DO> 01/12/22 1811 [facility] Work Phone: 1([phone]) 465-279111-08-2022 Progress note Author Raji Ennis [facility] January 12, 2022 4:38pmNote Date/TimeNov2021 4:38pmWelcome, [place] [address] Hospitalist Progress Note Signed Patient: Tavo Wallis Jr MR# : [id number] : 1940 Acct:[id number] Age/Sex: 81 / M Adm Date: 2 Loc: Room: [address] [place] [address] Type: ADM IN Attending Dr: Raji Ennis [...] mg 01/09/22 14:41 Bisacodyl 10 Mg Supp.Rect WI 01/09/23 14:40 DAILY PRN Constipation Bisacodyl 10 mg 01/09/22 14:41 01/12/22 08:22 Bisacodyl 5 Mg Tablet.Dr PO 01/09/23 14:40 10 mg DAILY PRN Administration Constipation Bumetanide 1 mg 01/09/22 15:30 01/12/22 14:53 Bumetanide 1 Mg/4 Ml Vial IV-PUSH 01/09/23 15:29 1 mg Q8H ANIBAL Administration Docusate Sodium 100 mg 01/09/22 21:00 01/12/22 08:22 Docusate 100 Mg Capsule PO 01/09/23 20:59 100 mg BID NAIBAL Administration Fluticasone Propionate 1 spray 01/09/22 15:17 Fluticasone Propionate [place] 120 [place]/16 Gm Bottle NARES-BOTH 01/09/23 15:16 QHS PRN [...] <Electronically signed by Raji Ennis MD> 01/12/228 [facility] Work Phone: 1([phone]) 223-740611-08-2022 Progress note Author Mani Dickens [facility] January 12, 2022 4:10pmNote Date/TimeNov2021 8:19[place] [address] Neurology Progress Note Signed Patient: Tavo Wallis Jr MR# : [id number] : 1940 Acct:[id number] Age/Sex: 81 / M Adm Date: 2 Loc: Room: [address] [place] [address] Type: ADM IN Attending Dr: Raji Ennis [...] extremities * Unable to test finger-nose or efhr-mm-rqbg due to drowsiness REFLEX EXAM: * 1/4 [...] Therapy Recommendations: OT Recommendations OT Recommended Discharge Correction Facility Location OT Recommended Services at Physical Therapy,Occupational Therapy Discharge PT Recommendations PT Recommended Discharge Correction Facility Location PT Recommended Services at Physical [...] the plan of care and confirmed the BALLASTER note The patient is an 81-year-old man [...] signed by MD Mani Dickens> 01/12/22 1610 [facility] Work Phone: 1(422) 389-663211-07-2022 Progress note Author Raji Ennis [facility] January 11, 2022 5:04pmNote Date/TimeNov2021 5:[address] [address] Hospitalist Progress Note Signed Patient: Tavo Wallis Jr MR# : [id number] : 1940 Acct:[id number] Age/Sex: 81 / M Adm Date: 2 Loc: Room: [address] [place] [address] Type: ADM IN Attending Dr: Raji Ennis [...] mg 01/09/22 14:41 Bisacodyl 10 Mg Supp.Rect WI 01/09/23 14:40 DAILY PRN Constipation Bisacodyl 10 [...] Propionate 1 spray 01/09/22 15:17 Fluticasone Propionate [place] 120 [place]/16 Gm Bottle NARES-BOTH 01/09/23 15:16 QHS PRN [...] 01/11/22 22:00 Tablet PO 01/11/23 21:59 HS [facility] Nystatin 1 applic 01/09/22 22:00 01/11/22 15:24 [...] prophylaxis Documented By: Raji Ennis MD 01/11/22 4477 Signed By: <Electronically signed by Raji Ennis MD> 01/11/22 4755 [facility] Work Phone: 1(660) 291-230511-07-2022 Progress note Author Mani Dickens [facility] January 11, 2022 5:02pmNote Date/TimeNov2021 8:55[place] [address] Neurology Progress Note Signed Patient: JadynTavo sevilla Jr MR# : [id number] : 1940 Acct:[id number] Age/Sex: 81 / M Adm Date: 2 Loc: 3T Room: [address] [place] [address] Type: ADM IN Attending Dr: Raji Ennis [...] knee to all modalities. CEREBELLAR EXAM: * Zbrxaj-sh-uwnl and alternating movements are intact and normal in bilateral upper extremities * Piih-zi-nabh and alternating movements are intact and normal [...] Therapy Recommendations: OT Recommendations OT Recommended Discharge Correction Facility Location OT Recommended Services at Physical Therapy,Occupational Therapy Discharge PT Recommendations PT Recommended Discharge Correction Facility Location PT Recommended Services at Physical [...] the plan of care and confirmed the BALLASTER note The patient is an 81-year-old man [...] signed by MD Mani Dickens> 01/11/22 170 [facility] Work Phone: 1(396) 157-604611-07-2022 Progress note Author W Be Mcintyre [facility] January 11, 2022 2:09pmNote Date/TimeNov2021 2:09pmWelcome[place] [address] Cardiology Progress Note Signed Patient: Tavo Wallis Jr MR# : [id number] : 1940 Acct:[id number] Age/Sex: 81 / M Adm Date: 2 Loc: Room: [address] [place] [address] Type: ADM IN Attending Dr: Raji Ennis [...] % (Auto) 73.8 Lymph % (Auto) 13.7 [place] % (Auto) 9.6 Eos % (Auto) 2.2 Baso % (Auto) 0.7 Neut # (Auto) 6.3 Lymph # (Auto) 1.2 [place] # (Auto) 0.8 Eos # (Auto) 0.2 [...] signed by Bhupinder Mcintyre DO> 01/11/22 1409 [facility] Work Phone: 1([phone]) 220-551711-06-2022 Progress note Author Dharmesh Zavala [facility] January 10, 2022 8:54pmNote Date/TimeNov2021 8:54pmWelcome[place] [address] Hospitalist Progress Note Signed Patient: Tavo Wallis Jr MR# : [id number] : 1940 Acct:[id number] Age/Sex: 81 / M Adm Date: 2 Loc: Room: [address] [place] [address] Type: ADM IN Attending Dr: Dharmesh Zavala DO Copies to: ~ Date of Service: 01/10/2022 Subjective Subjective Narrative: When I entered the room the patient tells me that he is getting a pain in the thighs on the top of his legs. He does mention that the people in [place] told me that was due to the [...] mg 01/09/22 14:41 Bisacodyl 10 Mg Supp.Rect WI 01/09/23 14:40 DAILY PRN Constipation Bisacodyl 10 mg 01/09/22 14:41 Bisacodyl 5 Mg Tablet.Dr PO 01/09/23 14:40 DAILY PRN Constipation Bumetanide 1 mg 01/09/22 15:30 01/10/22 14:42 Bumetanide 1 Mg/4 Ml Vial IV-PUSH 01/09/23 15:29 1 mg Q8H ANIBAL Administration Docusate Sodium 100 mg 01/09/22 21:00 01/10/22 08:58 Docusate 100 Mg Capsule PO 01/09/23 20:59 Not Given BID [facility] Fluticasone Propionate 1 spray 01/09/22 15:17 Fluticasone Propionate [place] 120 [place]/16 Gm Bottle NARES-BOTH 01/09/23 15:16 QHS PRN [...] <Electronically signed by Dharmesh Zavala DO> 01/10/222053 [facility] Work Phone: 1(124) [phone] Consult note Author Vikas Mane [facility] January 10, 2022 12:35pmNote Date/TimeNov2021 9:20[place] [address] Neurology Consult Note Signed Patient: Tavo Wallis Jr MR# : [id number] : 1940 Acct:[id number] Age/Sex: 81 / M Adm Date: 2 Loc: Room: [address] [place] [address] Type: ADM IN Attending Dr: Dharmesh Zavala DO Copies to: DO Opal Pollock,DO Dharmesh Zavala DO~ HPI Consult Date: 01/10/22 French Binder: Vikas Mane DO PMFSH Vaccinated for COVID-19?: [...] Esa Cardoso M.D.01/09/2022 10:11 AM Dictation Location: [place] [address] Renal Ultrasound 01/10/22 05:00 IMPRESSION: No hydronephrosis. Impression dictated by: Esa Cardoso M.D.01/10/2022 9:07 AM Dictation Location: [place] [address] Assessment/Plan (1) Falls frequently: Assessment/Problem Details: HPI: [...] rapidly alternating movements. No limb dysmetria with anujpn-rqhl-zizbkd testing. DATA REVIEW: MRI lumbar spine from [...] <Electronically signed by Vikas Mane DO> 01/10/[address] [place] [address] Work Phone: [phone]) 502-954311-06-2022 Consult note Author Marv Urena [facility] January 10, 2022 11:32amNote Date/TimeNov2021 11:32[place] [address] Cardiology Consult Note Signed Patient: Tavo Wallis Jr MR# : [id number] : 1940 Acct:[id number] Age/Sex: 81 / M Adm Date: 2 Loc: Room: [address] [place] [address] Type: ADM IN Attending Dr: Dharmesh Zavala DO Copies to: DO Marv Catalan MD, [facility] Dharmesh Zavala DO~ Cardiology HPI History of [...] He has adequate social support at home. [facility]-19?: Yes Medical [...] x10E3/uL Lymph # (Auto) 1.0 (1.00-4.8) x10E3/uL [place] # (Auto) 1.0 H (0.0-0.8) x10E3/uL Eos [...] Bradycardia, unspecified Documented By: Marv Urena MD, [facility] 2 1125 Signed By: <Electronically signed by [facility] Marv Urena> 01/10/22 1132 [facility] Work Phone: [phone] 547-143711-05-2022 History and physical note Author Dharmesh Zavala [facility] January 09, 2022 3:30pmNote Date/TimeNov2021 3:30pmWelcome[place] [address] Hospitalist H&P Signed Patient: Tavo Wallis Jr MR# : [id number] : 1940 Acct:[id number] Age/Sex: 81 / M Adm Date: 2 Loc: Room: [address] [place] [address] Type: ADM IN Attending Dr: Dharmesh Zavala [...] that he had seen a urologist in [place] recently. Patient used to be on a number of prostate medications but apparently they were stopped because they are not doing what they are supposed to be doing. The patient andhis daughter have a discussion about what urology was doing for the situation without finding a specific answer. Patient also describes that he has been veryconstipated lately and takes an unspecified naes-uvy-eckhwjk generic stool softener. His daughter does point [...] radiofrequency ablations by pain management doctor in [place]. Review of Systems Review of Systems Review [...] % (Auto) 13.5 % (.) 01/09/22 10:36 [place] % (Auto) 14.2 % (.) 01/09/22 10:36 Eos % (Auto) 0.1 % (.) 01/09/22 10:36 Baso % (Auto) 1.0 % (.) 01/09/22 10:36 Neut # (Auto) 4.3 x10E3/uL (1.8-7.7) 01/09/22 10:36 Lymph # (Auto) 0.8 x10E3/uL (1.00-4.8) L 01/09/22 10:36 [place] # (Auto) 0.9 x10E3/uL (0.0-0.8) H 01/09/22 [...] pH 5.5 (5.0-9.0) 01/09/22 12:42 Ur Specific [place] 1.018 (1.001-1.030) 01/09/22 12:42 Urine Protein Trace [...] lumbar spine. Documented By: Dharmesh Zavala DO 1514 Signed By: <Electronically signed by Dharmesh Zavala, > 01/09/22 1530 [facility] Work Phone: 1(658) 998-381811-03-2022 Evaluation note* Encounter Date Diagnosis Assessment Notes [...] in a week to re-evaluate the area. [facility] Other 10-21-2022 Evaluation note* Encounter Date Diagnosis Assessment Notes Treatment Notes Treatment Clinical Notes Dec, Lower extremity edema (ICD-10 - R60.0) [facility] Other 10-13-2022 NoteCONSULTATION CONSULTATION DATE: 12/17/2021 HISTORY [...] next refill, we will change it to [place] 5/325 daily p.r.n. and the patient is encouraged to increase oral fluids and to continue with his stool softener on a daily basis. Heat education was discussed with the patient, as far as frequency and consistency. We will see him in three months' time, unless otherwise indicated, and all questions answered today.[facility] [id number] NoteCONSULTATION CONSULTATION DATE: 11/12/2021 HISTORY OF PRESENT [...] followed up in the office post procedure.[facility] [id number] Evaluation note* Encounter Date Diagnosis Assessment Notes [...] manage his swelling better. He voiced understanding. [facility] Other 07-25-2022 Evaluation note* Encounter Date Diagnosis Assessment Notes Treatment Notes Treatment Clinical Notes Sep, CHF (congestive heart failure) ( ICD-10 - I50.9) [facility] Other 07-08-2022 Evaluation note* Encounter Date Diagnosis Assessment Notes Treatment Notes Treatment Clinical Notes Sep, CHF (congestive heart failure) ( ICD-10 - I50.9) Patient is to hold bumex until re-evaluated in one month per Dr. Opal Ga. [facility] Other 07-07-2022 Evaluation note* Encounter Date Diagnosis Assessment Notes Treatment Notes Treatment Clinical Notes Sep, Atrial fibrillation (ICD-10 - I4 8.91) [facility] Other 07-01-2022 Evaluation note* Encounter Date Diagnosis Assessment Notes Treatment Notes Treatment Clinical Notes Sep, Insomnia (ICD-10 - G47.00) Sep,Gout (ICD-10 - M10.9) [facility] Other 06-27-2022 Evaluation note* Encounter Date Diagnosis [...] is in AF today. He did see pump erector helper a few weeks ago and is stable [...] continue with current medications at this time. [facility] Other 06-09-2022 NoteCONSULTATION CONSULTATION DATE: 08/13/2021 This [...] in three months' time unless otherwise indicated. [facility] Signed and Approved by: NATACHA RODARTE . 08/20/2021 16:02:00[facility] [id number] Evaluation note* Encounter Date Diagnosis Assessment Notes Treatment Notes Treatment Clinical Notes May, Insomnia (ICD-10 - G47.00) [facility] Other 01-05-2022 Evaluation note* Encounter Date Diagnosis Assessment Notes Treatment Notes Treatment Clinical Notes Mar, Atrial fibrillation (ICD-10 - I4 8.91) [facility] Other 12-30-2021 Evaluation note* Encounter Date Diagnosis Assessment Notes Treatment Notes Treatment Clinical Notes Feb, Insomnia (ICD-10 - G47.00) [facility] Other 11-15-2021 Evaluation note* Encounter Date Diagnosis [...] Jan,creening for prostate cancer (ICD-10 - Z12.5) [facility] Other 03-19-2007 History general Narrative - Reported* Type Description Date Medical History EKG 05-23-2006 Medical HistoryMRI Lumbar Spine 01-13-11; [facility] Historyleft hip replacement 4-60-58Lvpkxyj Uczuzeq27/18/14-[facility] Historyfollows with urologyMedical History05/11/16 Stress TestMedical Historyf/u with Dr Mcintyre for CHF, A-FibMedical HistoryDr Brambila pain mgmt- back spondylolysisMedical HistoryMUGA Stress test 4/10/17 NOHCMedical History 05/10/2018 Colonscopy due to positive cologuard- polypectomy- Dr. Sweet Historyvenous insufficiencyMedical HistoryHTNMedical HistoryDJDMedical History HypothyroidismMedical HistoryMild CRIMedical HistoryCHFSurgical HistoryLeg and ankleSurgical HistoryBackSurgical HistoryBoth ShouldersSurgical HistoryHand Surgical HistoryNoseSurgical HistoryTumor removed from back that was in the bpghu42-84-3822Tsgdpspm Historyleft hip jmoruhafbxn6-72-00Konynixh History Bilateral Oayvpjgq9054Pwcihlvk HistoryLTJADON Lezama11/05/19[facility], A-Fib04/2016 [facility] Other [id number] History general Narrative - Reported* Type Description Date Medical History EKG 05-23-2006 Medical HistoryMRI Lumbar Spine 01-13-11; [facility] replacement 3-07-69Qdnunmh Opkfmks35/18/14-[facility] Historyfollows with urologyMedical History05/11/16 Stress TestMedical Historyf/u with Dr Mcintyre for CHF, A-FibMedical HistoryDr Brambila pain mgmt- back spondylolysisMedical HistoryMUGA Stress test 06/14/16 NOMedical History 05/10/2018 Colonscopy due to positive cologuard- polypectomy- Dr. Sweet Historyvenous insufficiencyMedical HistoryHTNMedical HistoryDJDMedical History HypothyroidismMedical HistoryMild CRIMedical HistoryCHFMedical Ilvzurx6-8-0821 Bilateral lumbar medical branch blockSurgical HistoryLeg and ankleSurgical HistoryBackSurgical HistoryBoth ShouldersSurgical HistoryHandSurgical History NoseSurgical HistoryTumor removed from back that was in the [id number] Surgical Historyleft hip vzynwewofno5-06-33Rojmnedv HistoryBilateral Cataract 2018Surgical HistoryLTJADON Lezama11/05/19Hospitalization HistoryFR- CHF, A-Fib04/2016 [facility] Other Consult note Author Vikas Mane [facility] January 10, 2022 12:35pmNote Date/TimeNov2021 9:20[place] [address] Neurology Consult Note Signed Patient: Tavo Wallis Jr MR# : [id number] : 1940 Acct:[id number] Age/Sex: 81 / M Adm Date: 2 Loc: 3T Room: [address] [place] [address] Type: ADM IN Attending Dr: Dharmesh Zavala DO Copies to: DO Opal Pollock,DO Dharmesh Zavala DO~ HPI Consult Date: 01/10/22 French Binder: Vikas Mane DO PMFSH Vaccinated for COVID-19?: [...] Esa Cardoso M.D.01/09/2022 10:11 AM Dictation Location: [facility] Renal Ultrasound 01/10/22 05:00 IMPRESSION: No hydronephrosis. Impression dictated by: Esa Cardoso M.D.01/10/2022 9:07 AM Dictation Location: [place] [address] Assessment/Plan (1) Falls frequently: Assessment/Problem Details: HPI: [...] rapidly alternating movements. No limb dysmetria with jplhkc-ssdn-ovegwg testing. DATA REVIEW: MRI lumbar spine from [...] signed by Vikas Mane DO> 01/10/22 1235 [facility] Work Phone: Consult note Author Marv Urena [facility] January 10, 2022 11:32amNote Date/TimeNov2021 11:32[place] [id number] Cardiology Consult Note Signed Patient: Tavo Wallis Jr MR# : [id number] : 1940 Acct:[id number] Age/Sex: 81 / M Adm Date: 2 Loc: 3T Room: [address] [place] [address] Type: ADM IN Attending Dr: Dharmesh Zavala DO Copies to: DO Marv Catalan MD, [facility] Dharmesh Zavala, ~ Cardiology HPI History of [...] He has adequate social support at home. [facility] Vaccinated for COVID-19?: Yes Medical History [...] x10E3/uL Lymph # (Auto) 1.0 (1.00-4.8) x10E3/uL [place] # (Auto) 1.0 H (0.0-0.8) x10E3/uL Eos [...] Bradycardia, unspecified Documented By: Marv Urena MD, [facility] 2 1125 Signed By: <Electronically signed by [facility]everiano Urena> 01/10/22 1130 [facility] Work Phone: Consult note Author Frankie Reynolds [facility] January 13, 2022 10:45amNote Date/TimeNovember 2021 10:[place] [id number] Infect. Disease Consult Note Signed Patient: Tavo Wallis Jr MR# : [id number] : 1940 Acct:[id number] Age/Sex: 81 / M Adm Date: 2 Loc: Room: [address] [place] [address] Type: ADM IN Attending Dr: Raji Ennis [...] negative unless noted below or in HPI [facility] Attestation Statement: The following information was [...] Bisacodyl (Bisacodyl 10 Mg Supp.Rect) 10 mg WI DAILY PRN PRN Reason: Constipation Stop: 01/09/23 14:40 Bisacodyl (Bisacodyl 5 Mg Tablet.Dr) 10 mg PO DAILY PRN PRN Reason: Constipation Stop: 01/09/23 14:40 Last Admin: 01/12/22 08:22 Dose: 10 mg Bumetanide (Bumetanide 1 Mg/4 Ml Vial) 1 mg IV-PUSH BID@0800,1600 [facility] Stop: 01/13/23 07:59 Last Admin: 01/13/22 09:43 Dose: 1 mg Docusate Sodium (Docusate 100 Mg Capsule) 100 mg PO BID [facility] Stop: 01/09/23 20:59 Last Admin: 01/13/22 09:43 Dose: 100 mg Fluticasone Propionate (Fluticasone Propionate [place] 120 [place]/16 Gm Bottle) 1 spray NARES-BOTH QHSPRN PRN Reason: Nasal Congestion Stop: 01/09/23 15:16 Magnesium Sulfate (Magnesium Sulf 2gm-*Swfi*) 2 gm in 50 mls @ 25 mls/hr IV DAILY PRN PRN Reason: Magnesium Level < 1.5 Stop: 01/09/23 14:40 Cefepime HCl (Maxipime) 2 gm in 50 mls @ 100 mls/hr IV Q12H [facility] Last Admin: 01/13/22 03:07 Dose: 100 mls/hr Levothyroxine Sodium (Levothyroxine 150 Mcg Tablet) 150 mcg PO DAILY@0630 [facility] Stop: 01/10/23 06:29 Last Admin: 01/13/22 06:26 Dose: 150 mcg Magnesium Hydroxide (Magnesium Hydroxide Susp 30 Ml Udc) 30 ml PO BID PRN PRN Reason: Constipation Stop: 01/09/23 14:40 Magnesium Oxide (Magnesium Oxide 400 Mg Tablet) 400 mg PO DAILY [facility] Stop: 01/10/23 08:59 Last Admin: 01/13/22 09:43 Dose: 400 mg Nitroglycerin (Nitroglycerin 0.4 Mg Tab.Subl) 0.4 mg SUBLINGUAL Q5MIN.X3 PRN PRN Reason: Chest Pain Stop: 01/09/23 14:40 Pom Eszopiclone 3 Mg (Tablet) 3 mg PO HS [facility] Stop: 01/11/23 21:59 Last Admin: 01/12/22 22:51 Dose: 3 mg Nystatin (Nystatin 100,000 Unit/Gram Powder 15 Gm Bottle) 1 applic TOPICAL TID [facility] Stop: 01/09/23 21:59 Last Admin: 01/13/22 09:43 [...] 20 Meq Tab.Er.Prt) 20 meq PO QPM [facility] Stop: 01/09/23 20:59 Last Admin: 01/12/22 22:51 Dose: 20 meq Sodium Chloride (Sodium Chloride 0.9 % 10 Ml Syringe) 0 ml IV-PUSH PRN PRN PRN Reason: Flush Stop: 01/09/23 09:37 Last Admin: 01/10/22 23:31 Dose: 10 ml Sodium Chloride (Sodium Chloride 0.9 % 10 Ml Syringe) 0 ml IV-PUSH QSHIFT [facility] Stop: 01/09/23 21:59 Last Admin: 01/13/22 06:26 [...] signed by MD Frankie Reynolds> 01/13/22 1045 [facility] Work Phone: Consult note Author Bayron farnsworth [facility] CenterNote Date/TimeMay 2024 2:49pmWelcome[place] [address] Urology Consult Note Signed Patient: Tavo Wallis Jr MR# : [id number] : 1940 Acct:[id number] Age/Sex: 83 / M Adm Date: 5 Loc: Room: [address] [place] [address] Type: ADM IN Attending Dr: Mario Jordan [...] done and negative except as per HPI [facility] Medical History Insomnia Hypothyroidism Hypertension Constipation [...] drinks a day >6 Social History Comments: [facility] Meds Medications and Allergies Allergies fentanyl Allergy [...] in place with clear yellow urine 22 Romanian three-way Skin: Warm and dry Extremities: No [...] Neut % (Auto) 90.2, Lymph %(Auto) 2.7, [place] % (Auto) 6.8, Eos % (Auto) 0.1, Baso % (Auto) 0.2, Nucleat RBC Rel Count 0.1, Neut# (Auto) 24.1 H, Lymph # (Auto) 0.7 L, [place] # (Auto) 1.8 H, Eos # (Auto) [...] % (Auto) N/A, Lymph % (Auto) N/A, [place] % (Auto) N/A, Eos % (Auto) N/A, Baso % (Auto) N/A, Nucleat RBC Rel Count N/A, Neut # (Auto) N/A, Lymph # (Auto) N/A, [place] # (Auto) N/A, Eos # (Auto) N/A, [...] Turbid A, Urine pH , Ur Specific [place] 1.020,Urine Protein , Urine Glucose (UA) , [...] % (Auto) 93.8, Lymph % (Auto) 4.2, [place] % (Auto) 0.4, Eos % (Auto) 1.3, Baso % (Auto) 0.3, Nucleat RBC Rel Count 0.2, Neut # (Auto)6.3, Lymph # (Auto) 0.3 L, [place] # (Auto) 0.0, Eos # (Auto) 0.1, [...] signed by Bayron Tom MD> 07/13/24 1449 [facility] Work Phone: Consult note Author Bryce Villeda [facility] CenterNote Date/TimeMay 2024 12:[place]pm[place] [id number] General Surgery Consult Note Signed Patient: Tavo Wallis Jr MR# : [id number] : 1940 Acct:[id number] Age/Sex: 83 / M Adm Date: 5 Loc: 4 Room: [address] [place] [address] Type: ADM IN Attending Dr: Mario Jordan MD Copies to: MD Sandip Fajardo DO~ History of Present Illness Date of consult: 07/14/2024 Requesting/Attending Provider: Mario Jordan MD History of present illness: Tavo is an 83-year-old male with multiple medical conditions including atrialfibrillation, hypothyroid, hypertension, CHF, who presented to the ER from [facility] for hematuria. The patient was admitted [...] trauma that may have caused the injury. [facility] Medical History Insomnia Hypothyroidism Hypertension Constipation [...] drinks a day >6 Social History Comments: [facility] rehab Allergies & Medications Medications and Allergies [...] 500 Mg Tablet) 500 mg PO TID [facility] Stop: 07/12/25 21:59 Last Admin: 07/14/24 09:05 Dose: 500 mg Acetaminophen (Acetaminophen 325 Mg Tablet) 650 mg PO Q6HR PRN PRN Reason: Pain Scale 1 - 3 or fever Stop: 07/12/25 16:59 Albuterol/Ipratropium (Ipratropium/Albuterol 0.5-3 Mg 3 Ml Ampul.Neb) 3 ml INHALATION Q6HR PRN PRN Reason: shortness of breath or wheezing Stop: 07/12/25 16:56 Allopurinol (Allopurinol 300 Mg Tablet) 300 mg PO DAILY [facility] Stop: 07/13/25 08:59 Last Admin: 07/14/24 09:05 [...] 50 mls @ 12.5 mls/hr IV Q12H [facility] Last Admin: 07/14/24 09:05 Dose: 12.5 mls/hr [...] 3 (Mg Tablet)) 3 mg PO QHS [facility] Stop: 07/20/25 21:59 Oxycodone/Acetaminophen (Oxycodone/Acetaminophen 5-325 Mg Tablet) 1 tab PO Q4H PRN PRN Reason: Pain Scale 4 - 7 Last Admin: 07/13/24 22:05 Dose: 1 tab Polyethylene Glycol (Polyethylene Glycol 3350 17 Gm Powd.Pack) 17 gm PO BID [facility] Stop: 07/14/25 10:04 Potassium Chloride (Potassium Chloride Er 20 Meq Tab.Er.Prt) 20 meq PO DAILY [facility] Stop: 07/13/25 08:59 Last Admin: 07/14/24 09:05 Dose: 20 meq Sennosides (Sennosides Syrup 8.8 Mg/5 Ml Udc) 8.8 mg PO BID [facility] Stop: 07/14/25 10:04 Sodium Chloride (Sodium Chloride [...] Neut % (Auto) 84.9, Lymph %(Auto) 7.4, [place] % (Auto) 6.1, Eos % (Auto) 1.4, Baso % (Auto) 0.2, Nucleat RBC Rel Count 0.1, Neut# (Auto) 13.3 H, Lymph # (Auto) 1.2, [place] # (Auto) 1.0 H, Eos # (Auto) [...] Neut % (Auto) 90.2, Lymph %(Auto) 2.7, [place] % (Auto) 6.8, Eos % (Auto) 0.1, Baso % (Auto) 0.2, Nucleat RBC Rel Count 0.1, Neut# (Auto) 24.1 H, Lymph # (Auto) 0.7 L, [place] # (Auto) 1.8 H, Eos # (Auto) [...] % (Auto) N/A, Lymph % (Auto) N/A, [place] % (Auto) N/A, Eos % (Auto) N/A, Baso % (Auto) N/A, Nucleat RBC Rel Count N/A, Neut # (Auto) N/A, Lymph # (Auto) N/A, [place] # (Auto) N/A, Eos # (Auto) N/A, [...] Turbid A, Urine pH , Ur Specific [place] 1.020,Urine Protein , Urine Glucose (UA) , [...] % (Auto) 93.8, Lymph % (Auto) 4.2, [place] % (Auto) 0.4, Eos % (Auto) 1.3, Baso % (Auto) 0.3, Nucleat RBC Rel Count 0.2, Neut # (Auto)6.3, Lymph # (Auto) 0.3 L, [place] # (Auto) 0.0, Eos # (Auto) 0.1, [...] signed by Bryce Villeda DO> 07/14/24 1221 [facility] Work Phone: Consult note Author Frankie Reynolds [facility] CenterNote Date/TimeMay 2024 9:59[place] [id number] Infect. Disease Consult Note Signed Patient: Tavo Wallis Jr MR# : [id number] : 1940 Acct:[id number] Age/Sex: 84 / M Adm Date: 5 Loc: Room: [address] [place] [address] Type: ADM IN Attending Dr: Mario Jordan MD Copies to: MD Sandip Fajardo MD~ [facility] Data of Consult Consult date: 07/15/24 [...] negative unless noted below or in HPI [facility] Medical History Insomnia Hypothyroidism Hypertension Constipation [...] 500 Mg Tablet) 500 mg PO TID [facility] Stop: 07/12/25 21:59 Last Admin: 07/15/24 08:33 [...] 40 Mg Tablet) 40 mg PO DAILY [facility] Stop: 07/13/25 08:59 Last Admin: 07/15/24 08:33 Dose: 40 mg Bumetanide (Bumetanide 1 Mg Tablet) 1 mg PO DAILY@0800 [facility] Stop: 07/15/25 07:59 Last Admin: 07/15/24 08:33 Dose: 1 mg Vancomycin HCl 1.25 gm/ (Dextrose) 275 mls @ 183.333 mls/hr IV Q12H [facility] Stop: 07/13/25 17:59 Last Admin: 07/15/24 09:47 Dose: 183.33 mls/hr Cefepime HCl (Maxipime) 2 gm in 50 mls @ 12.5 mls/hr IV Q12H [facility] Last Admin: 07/15/24 08:34 Dose: 12.5 mls/hr Levothyroxine Sodium (Levothyroxine 150 Mcg Tablet) 150 mcg PO DAILY.0630 [facility] Stop: 07/13/25 06:29 Last Admin: 07/15/24 08:33 Dose: 150 mcg Magnesium Oxide (Magnesium Oxide 400 Mg Tablet) 400 mg PO DAILY [facility] Stop: 07/13/25 08:59 Last Admin: 07/15/24 08:33 Dose: 400 mg Eszopiclone 3 Mg (Tablet) 3 mg PO QHS [facility] Stop: 07/12/25 21:59 Last Admin: 07/14/24 23:17 Dose: Not Given Pom (Eszopiclone 3 (Mg Tablet)) 3 mg PO QHS [facility] Stop: 07/20/25 21:59 Oxycodone/Acetaminophen (Oxycodone/Acetaminophen 5-325 Mg Tablet) 1 tab PO Q4H PRN PRN Reason: Pain Scale 4 - 7 Last Admin: 07/13/24 22:05 Dose: 1 tab Polyethylene Glycol (Polyethylene Glycol 3350 17 Gm Powd.Pack) 17 gm PO BID [facility] Stop: 07/14/25 10:04 Last Admin: 07/15/24 08:17 Dose: Not Given Potassium Chloride (Potassium Chloride Er 20 Meq Tab.Er.Prt) 20 meq PO DAILY [facility] Stop: 07/13/25 08:59 Last Admin: 07/15/24 08:33 Dose: 20 meq Sennosides (Sennosides Syrup 8.8 Mg/5 Ml Udc) 8.8 mg PO BID [facility] Stop: 07/14/25 10:04 Last Admin: 07/15/24 08:17 [...] @ 12.5 mls/hr IV Q12H [facility] Rx#: [id number] Vancomycin 1.25 gm In Dextrose 275 / 550 5 % in Water 250 ml @ 183.333 mls/hr IV Q12H [facility] Rx#:[id number] Oral 860 / 1110 0 / 0 [...] signed by MD Frankie Reynolds> 07/15/24 0959 [facility] Work Phone: Evaluation noteNo assessment information available [facility] Work Phone: Evaluation noteNo InformationNort DiObex Other Evaluation note* Diagnosis Onset Date Resolution Status Acute decompensated heart failure acuteAcute exacerbation of chronic low back painacuteElevated troponinacuteFall acuteHypoxemiaacute [facility] Work Phone: Evaluation note* Diagnosis Onset Date Resolution Status Acute decompensated heart failure acuteAcute exacerbation of chronic low back luejdwysiGLT-[id number] respiratory failure with hypoxiaacuteAltered mental statusacuteAnasarcaacute Bladder retentionacuteBradycardiaacuteConstipationacuteDifficulty walkingacute Elevated troponinacuteFallacuteFalls frequentlyacuteFeveracuteGeneralized weaknessacuteHFrEF (heart failure with reduced ejection fraction)acuteHypoxemia acuteImpaired activities of daily livingacuteMyxopapillary ependymomaacute Pleural effusionacuteSleep apneaacuteAtrial fibrillationchronicHypertension chronic [facility] Work Phone: Evaluation note* Diagnosis Chronic atrial fibrillation (Multi) Atrial fibrillation Essential hypertension, benign Heart failure, NYHA class 2 (Multi) Hyperlipidemia, unspecified hyperlipidemia type documented in this encounter [facility] Work Phone: Evaluation note* Author Mayra Ponce [facility] CenterAuthoredJuly 2023 10:21amThe above note written by ROSALIE Quiroga acting as human recorder, note dictated by Dr. Opal Ga. 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 Primary hypertension Unspecified essential hypertension Mixed hyperlipidemia BMI 30.0-30.9,adult Former smoker Personal history of tobacco use, presenting hazards to health documented in this encounter [facility] Work Phone: Evaluation note* Diagnosis Lumbar stenosis with neurogenic claudication- Primary Spinal stenosis, lumbar region, with neurogenic claudication Longstanding persistent atrial fibrillation (HCC) Cardiomyopathy, unspecified type (HCC) 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, lumbar region, with neurogenic claudication [facility] Diagnosis Pain due to onychomycosis of toenail of left foot- Primary Pain due to onychomycosis of toenail of right foot Localized edema Edema Decreased pedal pulses Other symptoms involving cardiovascular system nursing home (current) use of anticoagulants Long-term (current) use of anticoagulants [facility] Author Dharmesh Zavala [facility] January 09, 2022 3:30pmNote Date/TimeNov2021 3:30pmWelcome[place] [address] Hospitalist H&P Signed Patient: Tavo Wallis Jr MR# : [id number] : 1940 Acct:[id number] Age/Sex: 81 / M Adm Date: 2 Loc: Room: [address] [place] [address] Type: ADM IN Attending Dr: Dharmesh Zavala [...] that he had seen a urologist in [place] recently. Patient used to be on a number of prostate medications but apparently they were stopped because they are not doing what they are supposed to be doing. The patient andhis daughter have a discussion about what urology was doing for the situation without finding a specific answer. Patient also describes that he has been veryconstipated lately and takes an unspecified ztch-bif-nrwhbyf generic stool softener. His daughter does point [...] radiofrequency ablations by pain management doctor in [place]. Review of Systems Review of Systems Review [...] % (Auto) 13.5 % (.) 01/09/22 10:36 [place] % (Auto) 14.2 % (.) 01/09/22 10:36 Eos % (Auto) 0.1 % (.) 01/09/22 10:36 Baso % (Auto) 1.0 % (.) 01/09/22 10:36 Neut # (Auto) 4.3 x10E3/uL (1.8-7.7) 01/09/22 10:36 Lymph # (Auto) 0.8 x10E3/uL (1.00-4.8) L 01/09/22 10:36 [place] # (Auto) 0.9 x10E3/uL (0.0-0.8) H 01/09/22 [...] pH 5.5 (5.0-9.0) 01/09/22 12:42 Ur Specific [place] 1.018 (1.001-1.030) 01/09/22 12:42 Urine Protein Trace [...] lumbar spine. Documented By: Dharmesh Zavala DO 1548 Signed By: <Electronically signed by Dharmesh Zavala DO> 01/09/22 1107 [facility] Work Phone: History and physical note Author Mitchell Reyes [facility] CenterNote Date/TimeJanuary 2024 3:49pmEric Ville [id number] Hospitalist H&P Signed Patient: Tavo Wallis Jr MR# : [id number] : 1940 Acct:[id number] Age/Sex: 83 / M Adm Date: 5 Loc: 3T Room: [address] [place] [address] Type: ADM IN Attending Dr: Mitchell Reyes MD Copies to: MD Opal Peters,DO~ HPI DATE OF EXAMINATION: 03/10/24 HISTORY OF PRESENT ILLNESS: Patient is a 89-year-old male, who was well until approximately 2 weeks ago, when he underwent spinal decompression surgery in [facility] about 2 weeks prior to presentation. [...] pressure measured ultrasonographically is fairly normal at bantkk06 cc water. LV contractility is slightly decreased. [...] Dyslipidemia Gout Sleep apnea Obesity class I [facility] Medical History Insomnia Hypothyroidism Hypertension Constipation [...] % (Auto) 11.9 % (.) 03/10/24 10:00 [place] % (Auto) 9.2 % (.) 03/10/24 10:00 Eos % (Auto) 5.9 % (.) 03/10/24 10:00 Baso % (Auto) 1.4 % (.) 03/10/24 10:00 Nucleat RBC Rel Count 0.0 /100 WBC (0-0.5) 03/10/24 10:00 Neut # (Auto) 6.1 x10E3/uL (1.8-7.7) 03/10/24 10:00 Lymph # (Auto) 1.0 x10E3/uL (1.00-4.8) 03/10/24 10:00 [place] # (Auto) 0.8 x10E3/uL (0.0-0.8) 03/10/24 10:00 [...] signed by Mitchell Reyes MD> 03/10/24 1549 [facility] Work Phone: History and physical note Author Mario Jordan [facility] CenterNote Date/TimeMay 2024 6:49pmWelcome[place] [address] Hospitalist H&P Signed Patient: Tavo Wallis Jr MR# : [id number] : 1940 Acct:[id number] Age/Sex: 83 / M Adm Date: 5 Loc: Room: [address] [place] [address] Type: ADM IN Attending Dr: Mario Jordan MD Copies to: MD Sandip Fajardo Ramona DO~ HPI DATE OF EXAMINATION: 07/12/24 CHIEF COMPLAINT: Hematuria HISTORY OF PRESENT ILLNESS: This is a 83-year-old male with significant past medical history of A-fib, hypothyroidism, hypertension, BPH on chronic Chou since March 2024 exchangingevery month, hyperlipidemia, gout, cardiomyopathy, history of CHF, [facility] for chief concern for hematuria. Patient had [...] negative unless noted below or in HPI [facility] Medical History Insomnia Hypothyroidism Hypertension Constipation [...] % (Auto) 4.2 % (.) 07/12/24 15:00 [place] % (Auto) 0.4 % (.) 07/12/24 15:00 Eos % (Auto) 1.3 % (.) 07/12/24 15:00 Baso % (Auto) 0.3 % (.) 07/12/24 15:00 Nucleat RBC Rel Count 0.2 /100 WBC (0-0.5) 07/12/24 15:00 Neut # (Auto) 6.3 x10E3/uL (1.8-7.7) 07/12/24 15:00 Lymph # (Auto) 0.3 x10E3/uL (1.00-4.8) L 07/12/24 15:00 [place] # (Auto) 0.0 x10E3/uL (0.0-0.8) 07/12/24 15:00 [...] Urine pH (5.0-9.0) 07/12/24 16:19 Ur Specific [place] 1.020 (1.001-1.030) 07/12/24 16:19 Urine Protein mg/dL [...] gout, cardiomyopathy, history of CHF, was [facility] from [facility] for chief concern for hematuria. Patient had [...] signed by Mario Jordan MD> 07/12/24 1849 [facility] Work Phone: History of Present illness Narrative* The patient states he has been generally stable since the last visit. Comorbid Illnesses: hypertension. * Symptoms: denies chest pain at rest, denies exertional chest pain, denies dyspnea, denies fatigue, stable exercise intolerance, denies palpitations, denies edema, denies orthopnea, denies dizziness and denies orthostatic dizziness. * Disease Monitoring: [facility] [employer] Work Phone: History of Present illness Narrative* The patient states he has been generally stable since the last visit. Comorbid Illnesses: hypertension. * Symptoms: denies chest pain at rest, denies exertional chest pain, denies dyspnea, denies fatigue, stable exercise intolerance, denies palpitations, denies edema, denies orthopnea, denies dizziness and denies orthostatic dizziness. * Disease Monitoring: [facility] [employer] Work Phone: History of Present illness Narrative* [...] is not doing well with his goals. [facility] 250 DO Work Phone: History of [...] is not doing well with his goals. [facility] Work Phone: Hospital Discharge instructions Additional Instructions Correction Facility to manage care: - Full code [...] unable to void, chou catheter removed on 01/16[facility] Work Phone: Hospital Discharge instructions [...] Care to be managed by [facility] Work Phone: Hospital Discharge instructions Additional [...] Care to be managed by [facility] Work Phone: Progress note Author Dharmesh Zavala [facility] January 10, 2022 8:54pmNote Date/TimeNov2021 8:54pmWelcome, [place] [address] Hospitalist Progress Note Signed Patient: Tavo Wallis Jr MR# : [id number] : 1940 Acct:[id number] Age/Sex: 81 / M Adm Date: 2 Loc: Room: 3U7582-7 Type: ADM IN Attending Dr: Dharmesh Zavala DO Copies to: ~ Date of Service: 01/10/2022 Subjective Subjective Narrative: When I entered the room the patient tells me that he is getting a pain in the thighs on the top of his legs. He does mention that the people in [place] told me that was due to the [...] mg 01/09/22 14:41 Bisacodyl 10 Mg Supp.Rect WI 01/09/23 14:40 DAILY PRN Constipation Bisacodyl 10 [...] Propionate 1 spray 01/09/22 15:17 Fluticasone Propionate [place] 120 [place]/16 Gm Bottle NARES-BOTH 01/09/23 15:16 QHS PRN [...] 01/09/22 22:00 Eszopiclone PO 01/09/23 21:59 HS [facility] Nystatin 1 applic 01/09/22 22:00 01/10/22 14:42 [...] <Electronically signed by Dharmesh Zavala DO> 01/10/222053 [facility] Work Phone: Progress note Author Mani Dickens [facility] January 11, 2022 5:02pmNote Date/TimeNov2021 8:[address] [address] Neurology Progress Note Signed Patient: Tavo Wallis Jr MR# : [id number] : 1940 Acct:[id number] Age/Sex: 81 / M Adm Date: 2 Loc: 3T Room: [address] [place] [address] Type: ADM IN Attending Dr: Raji Ennis [...] knee to all modalities. CEREBELLAR EXAM: * Hvoogd-yj-fysk and alternating movements are intact and normal in bilateral upper extremities * Vpup-do-bhjt and alternating movements are intact and normal [...] Therapy Recommendations: OT Recommendations OT Recommended Discharge Correction Facility Location OT Recommended Services at Physical Therapy,Occupational Therapy Discharge PT Recommendations PT Recommended Discharge Correction Facility Location PT Recommended Services at Physical [...] the plan of care and confirmed the BALLASTER note The patient is an 81-year-old man [...] signed by MD Mani Dickens> 01/11/22 170 [facility] Work Phone: Progress note Author W Be Mcintyre [facility] January 11, 2022 2:09pmNote Date/TimeNov2021 2:09pmWelcome[place] [address] Cardiology Progress Note Signed Patient: Tavo Wallis Jr MR# : [id number] : 1940 Acct:[id number] Age/Sex: 81 / M Adm Date: 2 Loc: Room: [address] [place] [address] Type: ADM IN Attending Dr: Raji Ennis [...] % (Auto) 73.8 Lymph % (Auto) 13.7 [place] % (Auto) 9.6 Eos % (Auto) 2.2 Baso % (Auto) 0.7 Neut # (Auto) 6.3 Lymph # (Auto) 1.2 [place] # (Auto) 0.8 Eos # (Auto) 0.2 [...] signed by Bhupinder Mcintyre DO> 01/11/22 1409 [facility] Work Phone: Progress note Author Raji Ennis [facility] January 11, 2022 5:04pmNote Date/TimeNov2021 5:04pmWelcome, [place] [address] Hospitalist Progress Note Signed Patient: Tavo Wallis Jr MR# : [id number] : 1940 Acct:[id number] Age/Sex: 81 / M Adm Date: 2 Loc: Room: [address] [place] [address] Type: ADM IN Attending Dr: Raji Ennis [...] mg 01/09/22 14:41 Bisacodyl 10 Mg Supp.Rect WI 01/09/23 14:40 DAILY PRN Constipation Bisacodyl 10 [...] Propionate 1 spray 01/09/22 15:17 Fluticasone Propionate [place] 120 [place]/16 Gm Bottle NARES-BOTH 01/09/23 15:16 QHS PRN [...] prophylaxis Documented By: Raji Ennis MD 01/11/22 9777 Signed By: <Electronically signed by Raji Ennis MD> 01/11/22 1701 [facility] Work Phone: Progress note Author Mani Dickens [facility] January 12, 2022 4:10pmNote Date/TimeNov2021 8:19[place] [id number] Neurology Progress Note Signed Patient: Tavo Wallis Jr MR# : [id number] : 1940 Acct:[id number] Age/Sex: 81 / M Adm Date: 2 Loc: Room: [address] [place] [address] Type: ADM IN Attending Dr: Raji Ennis [...] extremities * Unable to test finger-nose or blrf-gd-ftrn due to drowsiness REFLEX EXAM: * 1 [...] Therapy Recommendations: OT Recommendations OT Recommended Discharge Correction Facility Location OT Recommended Services at Physical Therapy,Occupational Therapy Discharge PT Recommendations PT Recommended Discharge Correction Facility Location PT Recommended Services at Physical [...] the plan of care and confirmed the BALLASTER note The patient is an 81-year-old man [...] signed by MD Mani Dickens> 01/12/22 1610 [facility] Work Phone: Progress note Author Raji Ennis [facility] January 12, 2022 4:38pmNote Date/TimeNov2021 4:38pmWelcome, [place] [address] Hospitalist Progress Note Signed Patient: Tavo Wallis Jr MR# : [id number] : 1940 Acct:[id number] Age/Sex: 81 / M Adm Date: 2 Loc: Room: [address] [place] [address] Type: ADM IN Attending Dr: Raji Ennis [...] mg 01/09/22 14:41 Bisacodyl 10 Mg Supp.Rect WI 01/09/23 14:40 DAILY PRN Constipation Bisacodyl 10 [...] Propionate 1 spray 01/09/22 15:17 Fluticasone Propionate [place] 120 [place]/16 Gm Bottle NARES-BOTH 01/09/23 15:16 QHS PRN [...] signed by Raji Ennis MD> 01/12/22 1638 [facility] Work Phone: Progress note Author W Be Mcintyre [facility] January 12, 2022 6:11pmNote Date/TimeNov2021 6:11pmWelcome[place] [address] Cardiology Progress Note Signed Patient: Tavo Wallis MR# : [id number] : 1940 Acct:[id number] Age/Sex: 81 / M Adm Date: 2 Loc: 3T Room: [address] [place] [address] Type: ADM IN Attending Dr: Raji Ennis MD Copies to: ~ Date of Service: 01/12/2022 Subjective Principal diagnosis: Atrial fibrillation, bradycardia, diastolic CHF Interval history: Mr. Wlalis endorses improved shortness of breath today. Edema [...] % (Auto) 76.3 Lymph % (Auto) 12.2 [place] % (Auto) 9.1 Eos % (Auto) 1.9 Baso % (Auto) 0.5 Neut # (Auto) 7.7 Lymph # (Auto) 1.2 [place] # (Auto) 0.9 H Eos # (Auto) [...] 2.9 Globulin (PEP) 2.4 Albumin/Globulin (PEP) 1.2 Lklxk-5-Cektclgka 0.4 Gmami-9-Anlxdqoge 0.7 Beta Globulins 0.6 L Gamma Globulins 0.8 M-Franky Not observed PEP Note IgG 816 IgA 171 IgM 105 Serum Immunofixation 01/12/22 06:42 Corrected WBC Uncorrected WBC Count RBC Hgb Hct MCV MCH MCHC RDW Plt Count MPV Neut % (Auto) Lymph % (Auto) [place] % (Auto) Eos % (Auto) Baso % (Auto) Neut # (Auto) Lymph # (Auto) [place] # (Auto) Eos # (Auto) Baso # (Auto) Nucleated RBC % (auto) PHA Creatinine Clear Sodium Potassium Chloride Carbon Dioxide Anion Gap BUN Creatinine Est GFR ( Amer) Est GFR (Non-Af Amer) Glucose Calcium C-Reactive Prot, Quant 8.4 H Serum Total Protein Albumin (Send Out) Globulin (PEP) Albumin/Globulin (PEP) Veyzd-9-Zfoczvqiq Mozso-3-Kpsgvpoxp Beta Globulins Gamma Globulins M-Franky PEP Note [...] signed by Bhupinder Mcintyre DO> 01/12/22 1811 [facility] Work Phone: Progress note Author Mani Dickens [facility] January 13, 2022 6:10pmNote Date/TimeNov2021 8:13[place] [address] Neurology Progress Note Signed with Addenda Patient: Tavo Wallis Jr MR# : [id number] : 1940 Acct:[id number] Age/Sex: 81 / M Adm Date: 2 Loc: Room: [address] [place] [address] Type: ADM IN Attending Dr: Raji Ennis [...] extremities * Unable to test finger-nose or gejf-gb-ilyc due to drowsiness REFLEX EXAM: * 03/10 [...] Therapy Recommendations: OT Recommendations OT Recommended Discharge Correction Facility Location OT Recommended Services at Physical Therapy,Occupational Therapy Discharge PT Recommendations PT Recommended Discharge Correction Facility Location PT Recommended Services at Physical [...] <Electronically signed by MEI Knight> 01/13/22 1520 [facility] Work Phone: Progress note Author Raji Ennis [facility] January 13, 2022 3:44pmNote Date/TimeNov2021 3:27pmWelcome, [place] [address] Hospitalist Progress Note Signed Patient: Tavo Wallis Jr MR# : [id number] : 1940 Acct:[id number] Age/Sex: 81 / M Adm Date: 2 Loc: Room: [address] [place] [address] Type: ADM IN Attending Dr: Raji Ennis [...] mg 01/09/22 14:41 Bisacodyl 10 Mg Supp.Rect WI 01/09/23 14:40 DAILY PRN Constipation Bisacodyl 10 [...] Propionate 1 spray 01/09/22 15:17 Fluticasone Propionate [place] 120 [place]/16 Gm Bottle NARES-BOTH 01/09/23 15:16 QHS PRN [...] signed by Raji Ennis MD> 01/13/22 1544 [facility] Work Phone: Progress note Author Frankie Reynolds [facility] January 14, 2022 9:39amNote Date/TimeNov2021 9:39amWelcome, [place] [address] Infect. Disease Progress Note Signed Patient: Tavo Wallis Jr MR# : [id number] : 1940 Acct:[id number] Age/Sex: 81 / M Adm Date: 2 Loc: Room: [address] [place] [address] Type: ADM IN Attending Dr: Raji Ennis [...] Appearance Clear Urine pH 5.5 Ur Specific [place] 1.012 Urine Protein 30 H Urine Glucose [...] 300 Mg Tablet) 300 mg PO DAILY [facility] Stop: 01/10/23 08:59 Last Admin: 01/14/22 08:04 Dose: 300 mg Apixaban (Apixaban 5 Mg Tablet) 5 mg PO BID [facility] Stop: 01/09/23 20:59 Last Admin: 01/14/22 08:04 Dose: 5 mg Atorvastatin Calcium (Atorvastatin 40 Mg Tablet) 40 mg PO QHS [facility] Stop: 01/09/23 21:59 Last Admin: 01/13/22 21:26 Dose: 40 mg Bisacodyl (Bisacodyl 10 Mg Supp.Rect) 10 mg WI DAILY PRN PRN Reason: Constipation Stop: 01/09/23 14:40 Bisacodyl (Bisacodyl 5 Mg Tablet.Dr) 10 mg PO DAILY PRN PRN Reason: Constipation Stop: 01/09/23 14:40 Last Admin: 01/13/22 21:26 Dose: 10 mg Bumetanide (Bumetanide 1 Mg Tablet) 1 mg PO BID@0800,1600 [facility] Stop: 01/13/23 15:59 Docusate Sodium (Docusate 100 Mg Capsule) 100 mg PO BID [facility] Stop: 01/09/23 20:59 Last Admin: 01/14/22 08:03 Dose: 100 mg Fluticasone Propionate (Fluticasone Propionate [place] 120 [place]/16 Gm Bottle) 1 spray NARES-BOTH QHSPRN PRN Reason: Nasal Congestion Stop: 01/09/23 15:16 Magnesium Sulfate (Magnesium Sulf 2gm-*Swfi*) 2 gm in 50 mls @ 25 mls/hr IV DAILY PRN PRN Reason: Magnesium Level < 1.5 Stop: 01/09/23 14:40 Cefepime HCl (Maxipime) 2 gm in 50 mls @ 100 mls/hr IV Q12H [facility] Last Admin: 01/14/22 03:05 Dose: 100 mls/hr Vancomycin HCl 1.25 gm/ (Dextrose) 275 mls @ 183.333 mls/hr IV Q24H [facility] Stop: 01/13/23 18:59 Last Infusion: 01/13/22 21:17 Dose: Infused Levothyroxine Sodium (Levothyroxine 150 Mcg Tablet) 150 mcg PO DAILY@0630 [facility] Stop: 01/10/23 06:29 Last Admin: 01/14/22 05:54 [...] 3 Mg (Tablet) 3 mg PO HS [facility] Stop: 01/11/23 21:59 Last Admin: 01/13/22 21:27 [...] signed by MD Frankie Reynolds> 01/14/22 0939 [facility] Work Phone: Progress note Author [facility] January 14, 2022 5:43pmNote Date/TimeNov2021 5:43pmWelcome, [place] [address] Hospitalist Progress Note Signed Patient: Tavo Wallis Jr MR# : [id number] : 1940 Acct:[id number] Age/Sex: 81 / M Adm Date: 2 Loc: Room: [address] [place] [address] Type: ADM IN Attending Dr: Raji Ennis [...] mg 01/09/22 14:41 Bisacodyl 10 Mg Supp.Rect WI 01/09/23 14:40 DAILY PRN Constipation Bisacodyl 10 [...] Propionate 1 spray 01/09/22 15:17 Fluticasone Propionate [place] 120 [place]/16 Gm Bottle NARES-BOTH 01/09/23 15:16 QHS PRN [...] <Electronically signed by Raji Ennis MD> 01/14/221742 [facility] Work Phone: Progress note Author Frankie Reynolds [facility] January 15, 2022 12:21pmNote Date/TimeNov2021 12:21pmWelcome, [place] [address] Infect. Disease Progress Note Signed Patient: Tavo Wallis Jr MR# : [id number] : 1940 Acct:[id number] Age/Sex: 81 / M Adm Date: 2 Loc: Room: [address] [place] [address] Type: ADM IN Attending Dr: Raji Ennis [...] 300 Mg Tablet) 300 mg PO DAILY [facility] Stop: 01/10/23 08:59 Last Admin: 01/15/22 08:46 Dose: 300 mg Apixaban (Apixaban 5 Mg Tablet) 5 mg PO BID [facility] Stop: 01/09/23 20:59 Last Admin: 01/15/22 08:46 Dose: 5 mg Atorvastatin Calcium (Atorvastatin 40 Mg Tablet) 40 mg PO QHS [facility] Stop: 01/09/23 21:59 Last Admin: 01/14/22 21:32 Dose: 40 mg Bisacodyl (Bisacodyl 10 Mg Supp.Rect) 10 mg WI DAILY PRN PRN Reason: Constipation Stop: 01/09/23 [...] Dose: 100 mg Fluticasone Propionate (Fluticasone Propionate [place] 120 [place]/16 Gm Bottle) 1 spray NARES-BOTH QHSPRN PRN Reason: Nasal Congestion Stop: 01/09/23 15:16 Magnesium Sulfate (Magnesium Sulf 2gm-*Swfi*) 2 gm in 50 mls @ 25 mls/hr IV DAILY PRN PRN Reason: Magnesium Level < 1.5 Stop: 01/09/23 14:40 Levothyroxine Sodium (Levothyroxine 150 Mcg Tablet) 150 mcg PO DAILY@0630 [facility] Stop: 01/10/23 06:29 Last Admin: 01/15/22 06:38 Dose: Not Given Magnesium Hydroxide (Magnesium Hydroxide Susp 30 Ml Udc) 30 ml PO BID PRN PRN Reason: Constipation Stop: 01/09/23 14:40 Magnesium Oxide (Magnesium Oxide 400 Mg Tablet) 400 mg PO DAILY [facility] Stop: 01/10/23 08:59 Last Admin: 01/15/22 08:46 Dose: 400 mg Nitroglycerin (Nitroglycerin 0.4 Mg Tab.Subl) 0.4 mg SUBLINGUAL Q5MIN.X3 PRN PRN Reason: Chest Pain Stop: 01/09/23 14:40 Pom Eszopiclone 3 Mg (Tablet) 3 mg PO HS [facility] Stop: 01/11/23 21:59 Last Admin: 01/14/22 21:32 Dose: 3 mg Nystatin (Nystatin 100,000 Unit/Gram Powder 15 Gm Bottle) 1 applic TOPICAL TID [facility] Stop: 01/09/23 21:59 Last Admin: 01/15/22 08:46 [...] <Electronically signed by MD Frankie Reynolds> 01/15/221220 [facility] Work Phone: Progress note Author Raji Ennis [facility] January 15, 2022 4:51pmNote Date/TimeNov2021 4:51pmWelcome, [place] [address] Hospitalist Progress Note Signed Patient: Tavo Wallis Jr MR# : [id number] : 1940 Acct:[id number] Age/Sex: 81 / M Adm Date: 2 Loc: Room: [address] [place] [address] Type: ADM IN Attending Dr: Raji Ennis [...] mg 01/09/22 14:41 Bisacodyl 10 Mg Supp.Rect WI 01/09/23 14:40 DAILY PRN Constipation Bisacodyl 10 [...] Propionate 1 spray 01/09/22 15:17 Fluticasone Propionate [place] 120 [place]/16 Gm Bottle NARES-BOTH 01/09/23 15:16 QHS PRN [...] tomorrow. Documented By: Raji Ennis MD 01/15/22 1648 Signed By: <Electronically signed by Raji Ennis MD> 01/15/22 1651 [facility] Work Phone: Progress note Author Mitchell Reyes [facility] Center[facility] Date/TimeJanuary 2024 12:33pm [place] [address] Hospitalist Progress Note Signed Patient: Tavo Wallis Jr MR# : [id number] : 1940 Acct:[id number] Age/Sex: 83 / M Adm Date: 5 Loc: 3T Room: [address] [place] [address] Type: ADM IN Attending Dr: Mitchell Reyes [...] lumbar decompression surgery 2 weeks ago in [facility]. No complications otherwise. PT OT and pain [...] Tablet PO 03/11/25 06:29 Not Given DAILY@0630 [facility] Eszopiclone 3 Mg 3 mg 03/10/24 22:00 03/11/24 00:18 Tablet PO 03/10/25 21:59 Not Given QHS [facility] Oxycodone/Acetaminophen 1 tab 03/10/24 13:54 03/10/24 18:29 [...] signed by Mitchell Reyes MD> 03/11/24 1233 [facility] Work Phone: Progress note Author Michele Knight [facility] CenterNote Date/TimeJanuary 2024 5:12pmWelcome[place] [address] Hospitalist Progress Note Signed Patient: Tavo Wallis Jr MR# : [id number] : 1940 Acct:[id number] Age/Sex: 83 / M Adm Date: 5 Loc: Room: [address] [place] [address] Type: ADM IN Attending Dr: Michele Knight [...] Tablet PO 03/11/25 06:29 Not Given DAILY@0630 [facility] Eszopiclone 3 Mg 3 mg 03/10/24 22:00 [...] lumbar decompression surgery 2 weeks ago in [facility]. No complications otherwise. PT OT and pain [...] <Electronically signed by Michele Knight MD> 03/12/241711 [facility] Work Phone: Progress note Author Michele Knight [facility] CenterNote Date/TimeJanuary 2024 6:00pmWelcome[place] [address] Hospitalist Progress Note Signed Patient: Tavo Wallis Jr MR# : [id number] : 1940 Acct:[id number] Age/Sex: 83 / M Adm Date: 5 Loc: 3T Room: [address] [place] [address] Type: ADM IN Attending Dr: Michele Knight [...] lumbar decompression surgery 2 weeks ago in [facility]. No complications otherwise. PT OT and pain [...] signed by Michele Knight MD> 03/13/24 1800 [facility] Work Phone: Progress note Author Michele Knight [facility] CenterNote Date/TimeJanuary 2024 4:13pmWelcome[place] [address] Hospitalist Progress Note Signed Patient: Tavo Wallis Jr MR# : [id number] : 1940 Acct:[id number] Age/Sex: 83 / M Adm Date: 5 Loc: 3T Room: [address] [place] [address] Type: ADM IN Attending Dr: Michele Knight [...] lumbar decompression surgery 2 weeks ago in [facility]. No complications otherwise. PT OT and pain [...] signed by Michele Knight MD> 03/14/24 1613 [facility] Work Phone: Progress note Author Mario Jordan [facility] CenterNote Date/TimeMay 2024 2:38pmWelcome[place] [address] Hospitalist Progress Note Signed Patient: Tavo Wallis Jr MR# : [id number] : 1940 Acct:[id number] Age/Sex: 83 / M Adm Date: 5 Loc: Room: [address] [place] [address] Type: ADM IN Attending Dr: Mario Jordan [...] gout, cardiomyopathy, history of CHF, [facility] from [facility] for chief concern for hematuria. Patient had [...] Daily weights - Heart healthy diet - PT/OT-chcf facility - Full code SCD for DVT prophylaxis Documented By: Mario Jordan MD 07/13/24 5337 Signed By: <Electronically signed by Mario Jordan MD> 07/13/24 1438 [facility] Work Phone: Progress note Author Mario Jordan [facility] CenterNote Date/TimeMay 2024 12:47pm[place] [id number] Hospitalist Progress Note Signed Patient: Tavo Wallis Jr MR# : [id number] : 1940 Acct:[id number] Age/Sex: 83 / M Adm Date: 5 Loc: 4 Room: [address] [place] [address] Type: ADM IN Attending Dr: Mario Jordan [...] gout, cardiomyopathy, history of CHF, was [facility] for chief concern for hematuria. Patient had [...] Daily weights - Heart healthy diet - PT/OT-chcf facility - General Surgery consulted for abscess in the right mid leg lateral aspect - Full code SCD for DVT prophylaxis Documented By: Mario Jordan MD 07/14/24 1238 Signed By: <Electronically signed by Mario Jordan MD> 07/14/24 1246 [facility] Work Phone: progress note Author Bryce Villeda [facility] CenterNote Date/TimeMay 2024 2:20pmWelcome[place] [address] Progress Note Signed Patient: Tavo Wallis Jr MR# : [id number] : 1940 Acct:[id number] Age/Sex: 84 / M Adm Date: 5 Loc: Room: [address] [place] [address] Type: ADM IN Attending Dr: Mario Jordan [...] <Electronically signed by Bryce Villeda DO> 07/15/24 1217 [facility] Work Phone: progress note Author Mario Jordan [facility] CenterNote Date/TimeMay 2024 1:39pmWelcome[place] [address] Hospitalist Progress Note Signed Patient: Tavo Wallis Jr MR# : [id number] : 1940 Acct:[id number] Age/Sex: 84 / M Adm Date: 5 Loc: Room: [address] [place] [address] Type: ADM IN Attending Dr: Mario Jordan [...] gout, cardiomyopathy, history of CHF, was [facility] from [facility] for chief concern for hematuria. Patient had [...] Daily weights - Heart healthy diet - PT/OT-chcf facility - Full code SCD for DVT prophylaxis Documented By: Mario Jordan MD 07/15/241334 Signed By: <Electronically signed by Mario Jordan MD> 07/15/24 1339 [facility] Work Phone: Progress note Author Frankie eRynolds [facility] CenterNote Date/TimeMay 2024 9:28[place] [id number] Infect. Disease Progress Note Signed Patient: Tavo Wallis Jr MR# : [id number] : 1940 Acct:[id number] Age/Sex: 84 / M Adm Date: 5 Loc: Room: [address] [place] [address] Type: ADM IN Attending Dr: Mario Jordan [...] 500 Mg Tablet) 500 mg PO TID [facility] Stop: 07/12/25 21:59 Last Admin: 07/15/24 22:09 Dose: 500 mg Acetaminophen (Acetaminophen 325 Mg Tablet) 650 mg PO Q6HR PRN PRN Reason: Pain Scale 1 - 3 or fever Stop: 07/12/25 16:59 Albuterol/Ipratropium (Ipratropium/Albuterol 0.5-3 Mg 3 Ml Ampul.Neb) 3 ml INHALATION Q6HR PRN PRN Reason: shortness of breath or wheezing Stop: 07/12/25 16:56 Allopurinol (Allopurinol 300 Mg Tablet) 300 mg PO DAILY [facility] Stop: 07/13/25 08:59 Last Admin: 07/15/24 08:33 Dose: 300 mg Apixaban (Apixaban 5 Mg Tablet) 5 mg PO BID [facility] Stop: 07/15/25 20:59 Last Admin: 07/15/24 22:09 Dose: 5 mg Atorvastatin Calcium (Atorvastatin 40 Mg Tablet) 40 mg PO DAILY [facility] Stop: 07/13/25 08:59 Last Admin: 07/15/24 08:33 Dose: 40 mg Bumetanide (Bumetanide 1 Mg Tablet) 1 mg PO DAILY@0800 [facility] Stop: 07/15/25 07:59 Last Admin: 07/15/24 08:33 Dose: 1 mg Cefepime HCl (Maxipime) 2 gm in 50 mls @ 12.5 mls/hr IV Q12H [facility] Last Admin: 07/15/24 20:05 Dose: 12.5 mls/hr Vancomycin HCl (Vancomycin) 1 gm in 250 mls @ 250 mls/hr IV Q24H [facility] Levothyroxine Sodium (Levothyroxine 150 Mcg Tablet) 150 mcg PO DAILY.0630 [facility] Stop: 07/13/25 06:29 Last Admin: 07/16/24 05:21 Dose: 150 mcg Magnesium Oxide (Magnesium Oxide 400 Mg Tablet) 400 mg PO DAILY [facility] Stop: 07/13/25 08:59 Last Admin: 07/15/24 08:33 Dose: 400 mg Eszopiclone 3 Mg (Tablet) 3 mg PO QHS [facility] Stop: 07/12/25 21:59 Last Admin: 07/15/24 22:09 [...] <Electronically signed by MD Frankie Reynolds> 07/16/24927 [facility] Work Phone: Progress note Author Mario Jordan [facility] CenterNote Date/TimeMay 2024 2:59pmWelcome[place] [address] Hospitalist Progress Note Signed Patient: Tavo Wallis Jr MR# : [id number] : 1940 Acct:[id number] Age/Sex: 84 / M Adm Date: 5 Loc: Room: [address] [place] [address] Type: ADM IN Attending Dr: Mario Jordan [...] gout, cardiomyopathy, history of CHF, was [facility] for chief concern for hematuria. Patient had [...] Daily weights - Heart healthy diet - PT/OT-chcf facility - Full code SCD for DVT prophylaxis Documented By: Mario Jordan MD 07/16/241454 Signed By: <Electronically signed by Mario Jordan MD> 07/16/24 1459 [facility] Work Phone: Progress note Author Frankie Reynolds [facility] CenterNote Date/TimeMay 2024 8:51[place] [address] Infect. Disease Progress Note Signed Patient: Tavo Wallis Jr MR# : [id number] : 1940 Acct:[id number] Age/Sex: 84 / M Adm Date: 5 Loc: 4 Room: 1B3759-2 Type: ADM IN Attending Dr: Mario Jordan [...] 500 Mg Tablet) 500 mg PO TID [facility] Stop: 07/12/25 21:59 Last Admin: 07/17/24 08:15 Dose: 500 mg Acetaminophen (Acetaminophen 325 Mg Tablet) 650 mg PO Q6HR PRN PRN Reason: Pain Scale 1 - 3 or fever Stop: 07/12/25 16:59 Albuterol/Ipratropium (Ipratropium/Albuterol 0.5-3 Mg 3 Ml Ampul.Neb) 3 ml INHALATION Q6HR PRN PRN Reason: shortness of breath or wheezing Stop: 07/12/25 16:56 Allopurinol (Allopurinol 300 Mg Tablet) 300 mg PO DAILY [facility] Stop: 07/13/25 08:59 Last Admin: 07/17/24 08:15 Dose: 300 mg Apixaban (Apixaban 5 Mg Tablet) 5 mg PO BID [facility] Stop: 07/15/25 20:59 Last Admin: 07/17/24 08:15 Dose: 5 mg Atorvastatin Calcium (Atorvastatin 40 Mg Tablet) 40 mg PO DAILY [facility] Stop: 07/13/25 08:59 Last Admin: 07/17/24 08:15 Dose: 40 mg Bumetanide (Bumetanide 1 Mg Tablet) 1 mg PO DAILY@0800 [facility] Stop: 07/15/25 07:59 Last Admin: 07/17/24 08:15 Dose: 1 mg Cefepime HCl (Maxipime) 2 gm in 50 mls @ 12.5 mls/hr IV Q12H [facility] Last Admin: 07/17/24 08:15 Dose: 12.5 mls/hr Vancomycin HCl (Vancomycin) 1 gm in 250 mls @ 250 mls/hr IV Q24H [facility] Last Infusion: 07/16/24 12:00 Dose: Infused Levothyroxine Sodium (Levothyroxine 150 Mcg Tablet) 150 mcg PO DAILY.0630 [facility] Stop: 07/13/25 06:29 Last Admin: 07/17/24 08:15 Dose: 150 mcg Magnesium Oxide (Magnesium Oxide 400 Mg Tablet) 400 mg PO DAILY [facility] Stop: 07/13/25 08:59 Last Admin: 07/17/24 08:16 Dose: 400 mg Eszopiclone 3 Mg (Tablet) 3 mg PO QHS [facility] Stop: 07/12/25 21:59 Last Admin: 07/16/24 22:10 [...] <Electronically signed by MD Frankie Reynolds> 07/17/2451 [facility] Work Phone: Reason for referral (narrative)* Consultation (Routine) - AuthorizedSpecialtyDiagnoses / ProceduresReferred By Contact Referred To ContactCardiology Diagnoses Heart failure, NYHA class 2 (Multi) Procedures Follow Up In Cardiology Tavo Mcintyre DO [address] [facility], [place] [place], [place] [id number] Tavo Mcintyre DO [address] [facility], [facility] [address] [place] [address] Referral IDStatusReasonStart DateExpiration DateVisits RequestedVisits [id number]/8/20245/ [facility] Work Phone: Reqqiz for referral (narrative)No reason for referral information availableGeorgetown Behavioral Hospital Ctr Work Phone: Chief Complaint * [...] July 2021. * January 2022 hospitalized at [facility] due [facility], noted bradycardia with3.0-second pause [...] rare postural orthostatic h ypotension in the strap buckler machine. He denies any palpitations or fast heartbeats. [...] Complaint and Reason for Visit Chief Complaint MEDICARE/[facility] Chief Complaint E03.9 I10 I48.91 fallReason for VisitAcute decompensated heart failure Acute exacerbation of chronic low back pain Elevated troponin Fall Hypoxemia Chief Complaint E03.9 I10 I48.91 fallReason for VisitAcute decompensated heart failure Acute exacerbation of chronic low back pain [id number] Acute respiratory failure with hypoxia Altered mental [...] Acute exacerbation of chronic low back pain [id number] Acute respiratory failure with hypoxia Altered mental [...] Acute exacerbation of chronic low back pain [id number] Acute respiratory failure with hypoxia Altered mental [...] May 28, 2024 8:2 5am I48.91,M48.062,Z48.811,G93.41,M54.50 Apr wa 2024 9:25am Chief Complaint Admit Date Lethargic March 10, 2024 11 :26am Z47.89 April 03, 2024 3 :19pm 148.91 N18.3 April 23, 2024 10:53am i11.0 i50.33 ga3.41 i48.91 r33.9 z48.811 April 30, 2024 8:20am R33.9 May 07, 2024 8:58 am I48.91, N18.3, I50.33, G93.41, M48.062 M arch 2024 10:45am I48.91,I11.0,I50.33,M48.062,Z48.811 [facility] h 2024 7:13am Z48.811 111.0 May 28, 2024 8:2 5am I48.91,M48.062,Z48.811,G93.41,M54.50 Jun 9:25am I48.2, N18.3, I11.0, M48.062 June 11, 2024 7:09am Chief Complaint Admit Date Z47April 03, 2024 3 :19pm 148.91 N18.3 April 23, 2024 10:53am i11.0 i50.33 ga3.41 i48.91 r33.9 z48.811 April 30, 2024 8:20am R33.9 May 07, 2024 8:58 am I48.91, N18.3, I50.33, G93.41, M48.062 M arch 2024 10:45am I48.91,I11.0,I50.33,M48.062,Z48.811 [facility] h 2024 7:13am Z48.811 111.0 May [...] 8:58 am I48.91, N18.3, I50.33, G93.41, M48.062 [facility] 2024 10:45am I48.91,I11.0,I50.33,M48.062,Z48.811 [facility] 2024 7:13am [...] am I48.91, N18.3, I50.33, G93.41, M48.062 M [facility] 2024 10:45am I48.91,I11.0,I50.33,M48.062,Z48.811 [facility] 2024 7:13am Z48.811 111.0 May 28, 2024 [...] 11 :01am hospital f/u - subdural hematoma [facility] 2024 9:43am Chief Complaint Admit Date Urine drop-off September 14, 2024 10:5 0am lumbar pain September 18, 2024 3:12 pm recent uti, afib, chronic chou September 12:45pm Ref: Dr. Daily Perez UTI October 04, 2024 1:51 pm Fall October 05, 2024 9:1 3pm fallOctober 07, 2024 7:0 5am I62.9 October 31, 2024 11 :01am hospital f/u - subdural hematoma [facility] 2024 9:43am M81.0 November 29, 2024 11:23am [...] 11 :01am hospital f/u - subdural hematoma [facility] 2024 9:43am M81.0 November 29, 2024 11:23am [...] 11 :01am hospital f/u - subdural hematoma [facility] 2024 9:43am M81.0 November 29, 2024 11:23am [...] No April 05, 2023 4:20pm Date ActivatedDate JlmvztwfcleAjmyhtky88/17/2024 7:35 AM Advance Directive Response Recorded Date/ Time Advance Directives No April 05, 2023 3:20pm Summary Purpose Additional Source Comments REASON FOR VISIT (unrecogniz ed section and content) ReasonCommentsAnnual Ctxd4uoYonwfmEjauhkjjCzy-rj ClearanceLumbar fusionSpecialty Diagnoses / ProceduresReferred By ContactReferred To Contact Diagnoses Preop cardiovascular exam Procedures ECG 12 Lead Tavo Mcintyre DO [address] [facility], [address] [place] [address] Phone: tel: fax: Referral IDStatusReasonStart DateExpiration DateVisits RequestedVisits [id number]/12/202412/12/[id number] / Procedures Referred By ContactReferred To Contact Diagnoses Degeneration of intervertebral disc of lumbar region, unspecified whether pain present Degeneration of intervertebral disc of lumbar region, unspecified whether pain present [M51.369] Procedures WI ARTHRODESIS POSTERIOR/PSTLAT TQ 1NTRSPC LUMBAR WI ARTHRODESIS PST/PSTLAT TQ 1NTRSPC EA ADDL NTRSPC WI POTTS FACETECTOMY & FORAMOTOMY 1 VRT SGM LUMBAR WI POTTS FACETECTOMY&FORAMOT 1 VRT SGM EA ADDL SGM WI AUTOGRAFT SPINE SURGERY LOCAL FROM SAME INCISION L2-5 Decompression and Non Instrumented Fusion L2-5 Decompression and Non Instrumented Fusion L2-5 Decompression and Non Instrumented Fusion L2-5 Decompression and Non Instrumented Fusion L2-5 Decompression and Non Instrumented Fusion Randi Burris MD [address] [place] [address] [place] [address] [facility] [address] [place] [address] Referral IDStatusReasonStart DateExpiration DateVisits RequestedVisits [id number] PatientDebridement of Nail Care Teams (unrecognized sec [...] DO Primary Care Provider Active Natacha Rodarte BALLASTER-CAttending ProviderActive Team Status: Active Member Role Status [...] MemberRelationshipSpecialty Start DateEnd Date Opal Ga DO [facility]01/05/21 Team Status: Inactive Member Role Status Dates [...] Dates Bhupinder Mcintyre DO Specialist Active [facility] Care ProviderActive Team Status: Inactive Member Role Status Dates Opal Ga DO Primary Care Provide r, Attending Provider Active Start: September 21, 2023 End: September 21, 2023 Team Status: Inactive Member Role Status Wil Ga DO Primary Care Provide r, Attending Provider Active Start: December 27, 2023 End: December 27, 2023Team MemberRelationshipSpecialtyStart DateEnd Date Opal Ga DO [facility]01/05/21Team MemberRelationshipSpecialtyStart DateEnd Date Opal Ga DO [facility] Team Status: Inactive Member Role Status [...] July 12, 2024 End: July 17, 2024Daamy Aguirre , DOPrimary Care ProviderActiveStart: July 12, 2024 [...] 12, 2024 End: July 17sandhya Larry , BALLASTER-COther ProviderActiveStart: July 12, 2024 End: July 17guanakito Gomez MAGNET PLACER-BCOther ProviderActiveStart: July 12, 2024 End: July 17, [...] Tom MDOther ProviderActiveStart: 2024 Nkechi Larry , BALLASTER-COther ProviderActiveStart: 2024 Ella Gomez MAGNET PLACER-BCOther ProviderActiveStart: 2024 Bryce Villeda DOOther ProviderActiveStart: 2024 Jennifer Vargasending Provider, Other ProviderActiveStart: 2024 Team Status: Active Member Role Status Dates DO Jacqueline Baron Active PHYSICIAN NO FAMILYPrimary Care ProviderActive Team Status: Active Member Role Status Dates Melvi Qureshi BUNDLE CUTTER Emergency Provider Active S tart: 2024 Sandip [...] Start: September 18, 2024 End: September 18Clarisa Hassanencompass health rehabilitation hospital [facility] montgomeryshelia Care ProviderActiveStart: September 18, 2024 End: September [...] rt: November 06, 2024 End: November 06, 2024Elenandrés Montoya , APRNAttending ProviderActiveStart: November 06, 2024 [...] Status: Inactive Member Role/Relationship Status Dates Opal aG DO Primary Care Provider Active Sta rt: [...] Sta rt: December 27, 2024 Cristy Prince BALLASTER-CAttending ProviderActiveStart: December 27, 2024 Team Status: Inactive [...] section and content) DATE CREATED AUTHOR 07/09/2022 [facility] DATE CREATED AUTHOR AUTHOR'S ORGANIZ ATION 07/09/2022 [email or web address] DATE CREATED AUTHOR AUTHOR'S ORGANIZ ATION 07/16/2022 [facility] DATE CREATED AUTHOR AUTHOR'S ORGANIZ ATION 03/16/2024 [facility] DATE CREATED AUTHOR AUTHOR'S ORGANIZ ATION 08/04/2024 [facility] DATE CREATED AUTHOR AUTHOR'S ORGANIZ ATION 08/16/2024 [facility] DATE CREATED AUTHOR AUTHOR'S ORGANIZ ATION 10/20/2024 [facility] DATE CREATED AUTHOR AUTHOR'S ORGANIZ ATION 01/03/2025 [facility] Ordered Prescriptions (unrec ognized [...] Chau RN) * 0008 (Stopped - Provider: Crisyt Chau RN) * 0745 (New Bag - [...] RN) * 0208 (Given - Provider: Cristy Chau RN) * 0754 (Given - Provider: Norma [...] for injection by adding 1 mL of document processing specialist-supplied sterile diluent or sterile water for injection [...] or prosecute any alcohol or drug abuse patient.[facility] FOR RECORDS PERTAINING TO PATIENTS WHO [...] BE BASED ON THE PRIMARY CLINICAL RECORDS. [facility] [employer] [facility]. provides no warranty or guarantee of the accuracy or completeness of information in this document.
[2025-01-25 13:21] LABS: Glucose Urine UA NEGATIVE (NEGATIVE)
[2025-01-25 13:29] LABS: Cast Seen? NONE SEEN #/LPF (NONE SEEN); Crystals Seen? None Seen #/HPF (None Seen); Urine Culture Indicated YES-FRMC
== END 2025-01-25 10:30 | disposition home or self-care (01) ==
LOC: LAB 10:29
PROVIDERS: PCP Family Medicine; Visit Provider Family Medicine
DX: R41.82 Altered mental status, unspecified (principal)
CPT/HCPCS: 81001; 87086; 87088; 87186

== ENCOUNTER 2025-01-26 11:53 | Inpatient (IN) | payer MEDICARE, BC, SELFPAY ==
--- OUTSIDE RECORDS SUMMARY | 2023-08-02 05:45 | XMS_ITS ---
Author Organization [facility] Address [address] [place] [address] [place] [address] Care Team Providers Care Trigonometry Teacher Name Role Phone Pawel Echavarria Unavailable [phone] Mendy Bull Unavailable Unavailable Allergies Allergen (clinical [...] Encounter Location Date Provider Diagnosis [facility] [address] [place] [address] 08/02/2023 Pawel Echavarria Plan Of Treatment No Information Progress Notes * Irineo WALLIS JrDOB:01/1941 (84 yo M)Acc No.[id number]:08/02/2023 Patient:?Irineo Wallis Jr :?Pawel Echavarria DPMDOB:1940???Age:83 Y???Sex: MaleDate:08/02/2023hone:Address:[place] [address] Subjective: * Chief Complaints: * R fc [...] Electronic signature of Pawel Echavarria DPM on 01/28/2025 at 10:08 AM ESTSign off status: Pending * Provider: Danae Echavarria DPM Date: 0 08/02/2023 Generated for Printing/Faxing/eTransmitting on:?01/28/2025 10:08 AM EST
--- OUTSIDE RECORDS SUMMARY | 2023-08-02 05:45 | XMS_ITS ---
Author Organization [facility] Address [facility] [place] [address] Care Team Providers Care Tool Maintenance Technician Name Role Phone Pawel Echavarria Unavailable [phone] Mendy Bull Unavailable Unavailable Allergies Allergen (clinical [...] Encounter Location Date Provider Diagnosis [facility] [address] [place] [address] 08/02/2023 Pawel Echavarria Plan Of Treatment No Information Progress Notes * Irineo WALLIS JrDOB:01/1941 (84 yo M)Acc No.[id number]:08/02/2023 Patient:?Irineo Wallis Jr :?Pawel Echavarria DPMDOB:1940???Age:83 Y???Sex: MaleDate:08/02/2023hone:Address:[place] [address] Subjective: * Chief Complaints: * R fc [...] Electronic signature of Pawel Echavarria DPM on 01/26/2025 at 12:04 PM ESTSign off status: Pending * Provider: Danae Echavarria DPM Date: 0 08/02/2023 Generated for Printing/Faxing/eTransmitting on:?01/26/2025 12:04 PM EST
--- OUTSIDE RECORDS SUMMARY | 2024-03-26 04:45 | XMS_ITS ---
Author Organization [facility] Address [address] [place] [address] [place] [address] Care Team Providers Care Hand Box Folder Name Role Phone Pawel Echavarria Unavailable [phone] Mendy Bull Unavailable Unavailable Allergies Allergen (clinical [...] Encounter Location Date Provider Diagnosis [facility] [address] [place] [address] 03/26/2024 Pawel Echavarria Plan Of Treatment No Information Progress Notes * PADDYDENISIrineo JrDOB:01/1941 (84 yo M)Acc No.[id number]:03/26/2024 Patient:?BryonborisdenisIrineo Jr :?Pawel Echavarria DPMDOB:1940???Age:83 Y???Sex: MaleDate:03/26/2024Phone:Address:[facility] [id number] Subjective: * Chief Complaints: * R fc [...] of Pawel Echavarria DPM on 01/28/2025 at 10:11 AM ESTSign off status: Pending * Provider: Danae Echavarria DPM Date: 0 03/26/2024 Generated for Printing/Faxing/eTransmitting on:?01/28/2025 10:11 AM EST
--- OUTSIDE RECORDS SUMMARY | 2024-03-26 04:45 | XMS_ITS ---
Author Organization [facility] Address [address] [place] [address] [place] [address] Care Team Providers Care End Frazer Name Role Phone Pawel Echavarria Unavailable [phone] Mendy Bull Unavailable Unavailable Allergies Allergen (clinical [...] Encounter Location Date Provider Diagnosis [facility] [address] [place] [address] 03/26/2024 Pawel Echavarria Plan Of Treatment No Information Progress Notes * PADDYDENISIrineo JrDOB:01/1941 (84 yo M)Acc No.[id number]:03/26/2024 Patient:?BryonborisdenisIrineo Jr :?Pawel Echavarria DPMDOB:1940???Age:83 Y???Sex: MaleDate:03/26/2024Phone:Address:[facility] [place] Subjective: * Chief Complaints: * R fc [...] of Pawel Echavarria DPM on 01/26/2025 at 12:05 PM ESTSign off status: Pending * Provider: Danae Echavarria DPM Date: 0 03/26/2024 Generated for Printing/Faxing/eTransmitting on:?01/26/2025 12:05 PM EST
--- OUTSIDE RECORDS SUMMARY | 2024-04-13 04:20 | XMS_ITS ---
Author Organization [facility] Address [address] [place] [address] Care Team Providers Care Rn Clinical Quality Name Role Phone Randi Burris Unavailable [phone] SIXTO SIMMONS CNP Unavailable Unavailable REASON FOR VISIT L2-5 DECOMPRESSION AND NON INSTRUMENTED FUSION, [facility] , 02/20 Encounters Encounter Location Date Provider Diagnosis [facility] [address] [place] [address] [place] [address] 04/13/2024 Randi Burris Plan Of Treatment No Information Progress Notes * TAVO WALLIS JR RDOB:01/1941 (84 yo M)Acc No.[id number]:04/13/2024 Progress Notes Patient: Sharifa BRAVO TAVO [place] :?Randi Man MD, PhDDOB:1940 ???Age:83 Y???Sex:MaleDate:04/13/2024Phone:[phone]:[address] [place] [place], [id number] Subjective: * Chief Complaints: * 1 . L2-5 DECOMPRESSION AND NON INSTRUMENTED FUSION, [facility] , 02/20. * Medical History: * Surgical History: R otator cuff surgery , L2-5 laminectomy, PSF 02/21/2024. Objective: * Vitals: Assessment: Plan: * Treatment: Forms: * Images: * Electronic signature of Randi Burris MD, PHD on 01/28/2025 at 10:07 AM EST Sign off status: Pending * Provider: Myranda Man MD, PhD Date: 0 04/13/2024 Generated for Printing/Faxing/eTransmitting on:?01/28/2025 10:07 AM EST
--- OUTSIDE RECORDS SUMMARY | 2024-04-13 04:20 | XMS_ITS ---
Author Organization [facility] Address [address] [place] [address] Care Team Providers Care Manager Life Name Role Phone Randi Burris Unavailable [phone] SIXTO SIMMONS CNP Unavailable Unavailable REASON FOR VISIT L2-5 DECOMPRESSION AND NON INSTRUMENTED FUSION, [facility] , 02/20 Encounters Encounter Location Date Provider Diagnosis [facility] [facility] [address] [place] [address] [place] [address] 04/13/2024 Randi Burris Plan Of Treatment No Information Progress Notes * TAVO WALLIS JR RDOB:01/1941 (84 yo M)Acc No.[id number]:04/13/2024 Progress Notes Patient: Sharifa BRAVO TAVO [place] :?Randi Man MD, PhDDOB:1940 ???Age:83 Y???Sex:MaleDate:04/13/2024Phone:[phone]:[address] [place] [place], [id number] Subjective: * Chief Complaints: * 1 . L2-5 DECOMPRESSION AND NON INSTRUMENTED FUSION, [facility] , 02/20. * Medical History: * Surgical History: R otator cuff surgery , L2-5 laminectomy, PSF 02/21/2024. Objective: * Vitals: Assessment: Plan: * Treatment: Forms: * Images: * Electronic signature of Randi Burris MD, PHD on 01/26/2025 at 12:03 PM EST Sign off status: Pending * Provider: Myranda Man MD, PhD Date: 0 04/13/2024 Generated for Printing/Faxing/eTransmitting on:?01/26/2025 12:03 PM EST
--- OUTSIDE RECORDS SUMMARY | 2024-05-25 05:30 | XMS_ITS ---
Author Organization [facility] Address [address] [place] [address] Care Team Providers Care Student Union Consultant Name Role Phone Randi Burris Unavailable [phone] SIXTO SIMMONS CNP Unavailable Unavailable REASON FOR VISIT S.P I & D, 04/13/24 Encounters Encounter Location Date Provider Diagnosis [facility] [facility] [address] [place] [address] [place] [address] 05/25/2024 Randi Burris Plan Of Treatment No Information Progress Notes * TAVO WALLIS JR RDOB:01/1941 (84 yo M)Acc No.[id number]:05/25/2024 Progress Notes Patient: Sharifa BRAVO TAVO MCFARLAND :?Randi Man MD, PhDDOB:1940 ???Age:83 Y???Sex:MaleDate:05/25/2024Phone:[phone]:[address] [place] [id number] Subjective: * Chief Complaints: * 1 . S.P I & D, 04/13/24. * Medical History: * Surgical History: R otator cuff surgery , L2-5 laminectomy, PSF 02/21/2024, Lumbar wound I & D 04/17/2024. Objective: * Vitals: Assessment: Plan: * Treatment: Forms: * Images: * Electronic signature of Randi Burris MD, PHD on 01/28/2025 at 10:08 AM EST Sign off status: Pending * Provider: Myranda Man MD, PhD Date: 0 05/25/2024 Generated for Printing/Faxing/eTransmitting on:?01/28/2025 10:08 AM EST
--- OUTSIDE RECORDS SUMMARY | 2024-05-25 05:30 | XMS_ITS ---
Author Organization [facility] Address [address] [place] [address] Care Team Providers Care Studio Camera Operator Name Role Phone Randi Burris Unavailable [phone] SIXTO SIMMONS CNP Unavailable Unavailable REASON FOR VISIT S.P I & D, 04/13/24 Encounters Encounter Location Date Provider Diagnosis [facility] [facility] [address] [place] [address] [place] [address] 05/25/2024 Randi Burris Plan Of Treatment No Information Progress Notes * TAVO WALLIS JR RDOB:01/1941 (84 yo M)Acc No.[id number]:05/25/2024 Progress Notes Patient: Sharifa BRAVO TAVO MCFARLAND :?Randi Man MD, PhDDOB:1940 ???Age:83 Y???Sex:MaleDate:05/25/2024Phone:[phone]:[address] [id number] Subjective: * Chief Complaints: * 1 . S.P I & D, 04/13/24. * Medical History: * Surgical History: R otator cuff surgery , L2-5 laminectomy, PSF 02/21/2024, Lumbar wound I & D 04/17/2024. Objective: * Vitals: Assessment: Plan: * Treatment: Forms: * Images: * Electronic signature of Randi Burris MD, PHD on 01/26/2025 at 12:04 PM EST Sign off status: Pending * Provider: Myranda Man MD, PhD Date: 0 05/25/2024 Generated for Printing/Faxing/eTransmitting on:?01/26/2025 12:04 PM EST
--- OUTSIDE RECORDS SUMMARY | 2024-06-08 05:10 | XMS_ITS ---
Author Organization [facility] Address [address] [place] [address] Care Team Providers Care Financial Services Manager Name Role Phone Randi Burris Unavailable [phone] SIXTO SIMMONS CNP Unavailable Unavailable REASON FOR VISIT lumbar recheck Medications Medication SIG (Take, Route, Frequency, Duration) Notes Start Date End Date Status magnesium oxide ActivepramipexoleActivetraZODoneActivepotassium chlorideActiveOxycodoneActive Flexeril 10 mg1 tab(s) orally 3 times a day prn muscle zbhlih65/16/2024Active Flexeril 10 mg1 tab(s) orally 3 times a day5ActiveatorvastatinActive EliquisActiveallopurinolActivelevothyroxineActiveeszopicloneActivebumetanide Active Encounters Encounter Location Date Provider Diagnosis [facility] Office [address] [place] [address] [place] [address] 06/08/2024 Randi Burris Plan Of Treatment Pending Test Test Name Order Date Lumbar spine 2v ap and lat - [id number] 06/08 Progress Notes * TAVO WALLIS JR RDOB:01/1941 (84 yo M)Acc No.[id number]:06/08/2024 Patient:?TAVO WALLIS JR :?Randi Man MD, PhDDOB:1940 ???Age:83 Y???Sex:MaleDate:06/08/2024Phone:[phone]:[address] [id number] Subjective: * Chief Complaints: * 1 . Lumbar recheck. * Medical History: * Medications: T aking pramipexole , Taking traZODone , Taking potassium chloride , Taking Oxycodone , Taking magnesium oxide , Taking levothyroxine , Taking eszopiclone , Taking bumetanide , Taking atorvastatin , Taking Eliquis , Taking allopurinol , Taking Flexeril 10 mg tablet 1 tab(s) orally 3 times a day prn muscle spasms , Taking Flexeril 10 mg tablet 1 tab(s) orally 3 times a day Objective: * Vitals: Assessment: Plan: * Treatment: ?Imaging: Lumbar spine 2v ap and lat - 64512 Forms: * Images: * Electronic signature of Randi Burris MD, PHD on 01/28/2025 at 10:11 AM EST Sign off status: Pending * Provider: Myranda Man MD, PhD Date: 0 06/08/2024 Generated for Printing/Faxing/eTransmitting on:?01/28/2025 10:11 AM EST
--- OUTSIDE RECORDS SUMMARY | 2024-06-08 05:10 | XMS_ITS ---
Author Organization [facility] Address [address] [place] [address] Care Team Providers Care Transformer Shop Supervisor Name Role Phone Randi Burris Unavailable [phone] SIXTO SIMMONS CNP Unavailable Unavailable REASON FOR VISIT lumbar recheck Medications Medication SIG (Take, Route, Frequency, Duration) Notes Start Date End Date Status magnesium oxide ActivepramipexoleActivetraZODoneActivepotassium chlorideActiveOxycodoneActive Flexeril 10 mg1 tab(s) orally 3 times a day prn muscle arztvl28/16/2024Active Flexeril 10 mg1 tab(s) orally 3 times a day5ActiveatorvastatinActive EliquisActiveallopurinolActivelevothyroxineActiveeszopicloneActivebumetanide Active Encounters Encounter Location Date Provider Diagnosis [facility] Office [address] [place] [address] [place] [address] 06/08/2024 Randi Burris Plan Of Treatment Pending Test Test Name Order Date Lumbar spine 2v ap and lat - 14795 06/08 Progress Notes * TAVO WALLIS JR RDOB:01/1941 (84 yo M)Acc No.[id number]:06/08/2024 Patient:?TAVO WALLIS JR :?Randi Man MD, PhDDOB:1940 ???Age:83 Y???Sex:MaleDate:06/08/2024Phone:[phone]:[address] [id number] Subjective: * Chief Complaints: * 1 . [...] Lumbar spine 2v ap and lat - 98374 Forms: * Images: * Electronic signature of Randi Burris MD, PHD on 01/26/2025 at 12:05 PM EST Sign off status: Pending * Provider: Myranda Man MD, PhD Date: 0 06/08/2024 Generated for Printing/Faxing/eTransmitting on:?01/26/2025 12:05 PM EST
--- OUTSIDE RECORDS SUMMARY | 2024-07-20 05:00 | XMS_ITS ---
Author Organization [facility] Address [address] [place] [address] Care Team Providers Care Fire Manager Name Role Phone Randi Burris Unavailable [phone] SIXTO SIMMONS CNP Unavailable Unavailable REASON FOR VISIT LUMBAR RECHECK Medications Medication SIG (Take, Route, Frequency, Duration) Notes Start Date End Date Status Flexeril 10 mg 1 tab(s) orally 3 times a day pr n muscle spasms 4ActiveFlexeril 10 mg1 tab(s) orally 3 times a day5Active atorvastatinActiveallopurinolActiveEliquisActivemagnesium oxideActiveOxycodone ActiveeszopicloneActivelevothyroxineActivebumetanideActivetraZODoneActive pramipexoleActivepotassium chlorideActive Encounters Encounter Location Date Provider Diagnosis [facility] Office [address] [place] [address] [place] [address] 07/20/2024 Randi Burris Plan Of Treatment No Information Progress Notes * TAVO WALLIS JR RDOB:01/1941 (84 yo M)Acc No.[id number]:07/20/2024 Patient:?TAVO WALLIS JR :?Randi Man MD, PhDDOB:1940 ???Age:84 Y???Sex:MaleDate:07/20/2024Phone:[phone]:[address], [id number] Subjective: * Chief Complaints: * 1 . LUMBAR RECHECK. * Medical History: * Medications: T aking [...] Provider: Myranda Man MD, PhD Date: 0 07/20/2024 Generated for Printing/Faxing/eTransmitting on:?01/26/2025 12:05 PM EST
--- OUTSIDE RECORDS SUMMARY | 2024-07-20 05:00 | XMS_ITS ---
Author Organization [facility] Address [address] [place] [address] Care Team Providers Care Chromosomal Disorders Counselor Name Role Phone Randi Burris Unavailable [phone] SIXTO SIMMONS CNP Unavailable Unavailable REASON FOR VISIT LUMBAR RECHECK Medications Medication SIG (Take, Route, Frequency, Duration) Notes Start Date End Date Status Flexeril 10 mg 1 tab(s) orally 3 times a day pr n muscle spasms 4ActiveFlexeril 10 mg1 tab(s) orally 3 times a day5Active atorvastatinActiveallopurinolActiveEliquisActivemagnesium oxideActiveOxycodone ActiveeszopicloneActivelevothyroxineActivebumetanideActivetraZODoneActive pramipexoleActivepotassium chlorideActive Encounters Encounter Location Date Provider Diagnosis [facility] Office [address] [place] [address] [place] [address] 07/20/2024 Randi Burris Plan Of Treatment No Information Progress Notes * TAVO WALLIS JR RDOB:01/1941 (84 yo M)Acc No.[id number]:07/20/2024 Patient:?TAVO WALLIS JR :?Randi Man MD, PhDDOB:1940 ???Age:84 Y???Sex:MaleDate:07/20/2024Phone:[phone]:[address], [id number] Subjective: * Chief Complaints: * 1 . [...] PhD Date: 0 07/20/2024 Generated for Printing/Faxing/eTransmitting on:?01/28/2025 10:11 AM EST
--- OUTSIDE RECORDS SUMMARY | 2024-08-10 05:20 | XMS_ITS ---
Author Organization [facility] Address [address] [place] [address] Care Team Providers Care Sales And Catering Coordinator Name Role Phone Randi Burris Unavailable [phone] SIXTO SIMMONS CNP Unavailable Unavailable REASON FOR VISIT LUMBAR RECHECK Encounters Encounter Location Date Provider Diagnosis [facility] Office [address] [place] [address] [place] [address] 08/10/2024 Randi Burris Plan Of Treatment No Information Progress Notes * TAVO WALLIS JR RDOB:01/1941 (84 yo M)Acc No.[id number]:08/10/2024 Patient:?TAVO WALLIS JR :?Randi Man MD, PhDDOB:1940 ???Age:84 Y???Sex:MaleDate:08/10/2024Phone:[phone]:[address] [id number] Subjective: * Chief Complaints: * 1 . LUMBAR RECHECK. * Medical History: Objective: * Vitals: Assessment: Plan: * Treatment: Forms: * Images: * Electronic signature of Randi Burris MD, PHD on 01/28/2025 at 10:07 AM EST Sign off status: Pending * Provider: Myranda Man MD, PhD Date: 0 08/10/2024 Generated for Printing/Faxing/eTransmitting on:?01/28/2025 10:07 AM EST
--- OUTSIDE RECORDS SUMMARY | 2024-08-10 05:20 | XMS_ITS ---
Author Organization [facility] Address [address] [place] [address] Care Team Providers Care Computer Support Analyst Name Role Phone Randi Burris Unavailable [phone] SIXTO SIMMONS CNP Unavailable Unavailable REASON FOR VISIT LUMBAR RECHECK Encounters Encounter Location Date Provider Diagnosis [facility] Office [address] [place] [address] [place] [address] 08/10/2024 Randi Burris Plan Of Treatment No Information Progress Notes * TAVO WALLIS JR RDOB:01/1941 (84 yo M)Acc No.[id number]:08/10/2024 Patient:?TAVO WALLIS JR :?Randi Man MD, PhDDOB:1940 ???Age:84 Y???Sex:MaleDate:08/10/2024Phone:[phone]:[address] [phone] Subjective: * Chief Complaints: * 1 . LUMBAR RECHECK. * Medical History: Objective: * Vitals: Assessment: Plan: * Treatment: Forms: * Images: * Electronic signature of Randi Burris MD, PHD on 01/26/2025 at 12:03 PM EST Sign off status: Pending * Provider: Myranda Man MD, PhD Date: 0 08/10/2024 Generated for Printing/Faxing/eTransmitting on:?01/26/2025 12:03 PM EST
--- OUTSIDE RECORDS SUMMARY | 2024-08-31 05:40 | XMS_ITS ---
Author Organization [facility] Address [address] [place] [address] Care Team Providers Care Interior Decorator Paperhanging Name Role Phone Randi Burris Unavailable [phone] SIXTO SIMMONS CNP Unavailable Unavailable REASON FOR VISIT LUMBAR RECHECK Medications Medication SIG (Take, Route, Frequency, Duration) Notes Start Date End Date Status atorvastatin ActiveallopurinolActiveEliquisActiveFlexeril 10 mg1 tab(s) orally 3 times a day 5ActiveFlexeril 10 mg1 tab(s) orally 3 times a day prn muscle spasms 4ActiveOxycodoneActivelevothyroxineActivemagnesium oxideActive bumetanideActiveeszopicloneActivepotassium chlorideActivetraZODoneActive pramipexoleActive Encounters Encounter Location Date Provider Diagnosis [facility] Office [address] [place] [address] 08/31/2024 Randi Burris Plan Of Treatment Pending Test Test Name Order Date Lumbar spine 2v ap and lat - [id number] 08/31 Progress Notes * TAVO WALLIS JR RDOB:01/1941 (84 yo M)Acc No.[id number]:08/31/2024 Patient:?TAVO WALLIS JR :?Randi Man MD, PhDDOB:1940 ???Age:84 Y???Sex:MaleDate:08/31/2024Phone:[phone]:[address] [id number] Subjective: * Chief Complaints: * 1 . [...] Lumbar spine 2v ap and lat - 05672 * Procedure Codes: 7 2100 X-ray Lumbar Spine, 2 view Forms: * Images: * Electronic signature of Randi Burris MD, PHD on 01/26/2025 at 12:05 PM EST Sign off status: Pending * Provider: Myranda Man MD, PhD Date: 0 08/31/2024 Generated for Printing/Faxing/eTransmitting on:?01/26/2025 12:05 PM EST
--- OUTSIDE RECORDS SUMMARY | 2024-08-31 05:40 | XMS_ITS ---
Author Organization [facility] Address [address] [place] [address] Care Team Providers Care Massage Therapy Instructor Name Role Phone Randi Burris Unavailable [phone] SIXTO SIMMONS CNP Unavailable Unavailable REASON FOR VISIT LUMBAR RECHECK Medications Medication SIG (Take, Route, Frequency, Duration) Notes Start Date End Date Status atorvastatin ActiveallopurinolActiveEliquisActiveFlexeril 10 mg1 tab(s) orally 3 times a day 5ActiveFlexeril 10 mg1 tab(s) orally 3 times a day prn muscle spasms 4ActiveOxycodoneActivelevothyroxineActivemagnesium oxideActive bumetanideActiveeszopicloneActivepotassium chlorideActivetraZODoneActive pramipexoleActive Encounters Encounter Location Date Provider Diagnosis [facility] [address] [place] [address] 08/31/2024 Randi Burris Plan Of Treatment Pending Test Test Name Order Date Lumbar spine 2v ap and lat - 17660 08/31 Progress Notes * TAVO WALLIS JR RDOB:01/1941 (84 yo M)Acc No.[id number]:08/31/2024 Patient:?TAVO WALLIS JR :?Randi Man MD, PhDDOB:1940 ???Age:84 Y???Sex:MaleDate:08/31/2024Phone:[phone]:[address] [id number] Subjective: * Chief Complaints: * 1 . [...] Lumbar spine 2v ap and lat - 44401 * Procedure Codes: 7 2100 X-ray Lumbar Spine, 2 view Forms: * Images: * Electronic signature of Randi Burris MD, PHD on 01/28/2025 at 10:11 AM EST Sign off status: Pending * Provider: Myranda Man MD, PhD Date: 0 08/31/2024 Generated for Printing/Faxing/eTransmitting on:?01/28/2025 10:11 AM EST
--- OUTSIDE RECORDS SUMMARY | 2025-01-25 19:30 | XMS_ITS | Continuity of Care Document ---
Author Organization [facility] Address [address] [place] [address] Phone Care Team Providers Care Regional Maintenance Manager Name Role Phone Feliciano Ambrosio DO Primary Care Provider Jovany Stovall MD Attending Provider Keely Montoya APRN Attending Provider [phone] Sree Thao DO Emergency Provider [phone] Akash Mccartney MD Admit Provider [phone] Michele Knight MD Attending Provider Cristy Prince [employer] Attending Provider Liliana Miller DO Attending Provider Lea Peña DO Attending Provider Sha Pepe MD Attending Provider Mendy Bull MD Attending Provider Care Teams Patient Care [...] 06, 2024 End: November 06, 2024Elenandrés Montoya APRNAtgabriel ProviderActiveStart: November 06, 2024 End: November 06, 2024 Visit Care Team Team Status: Inactive Member Role/Relationship Status Dates Feliciano Ambrosio DO Primary Care Provider Active Sta rt: November 29, 2024 End: November 29, 2024Elenandrés Montoya , HARVINDERNAtgabriel ProviderActiveStart: November 29, 2024 End: November 29, 2024 Visit Care Team Team Status: Inactive Member Role/Relationship Status Dates Feliciano Ambrosio DO Primary Care Provider Active Sta rt: December 04, 2024 End: December 04, 2024Elenandrés Montoya , [place] ProviderActiveStart: December 04, 2024 End: December 04, 2024 Visit Care Team Team Status: Inactive Member Role/Relationship Status Dates Feliciano Ambrosio DO Primary Care Provider Active Sta rt: December 12, 2024 End: December 18Sumi Vickers ProviderActiveStart: December 12, 2024 End: December 18, 2024Akash Mccartney MDAdmit ProviderActiveStart: December 12, 2024 End: December 18, 2024Rabecka Knight MDAttending ProviderActiveStart: December 12, 2024 End: December 18, 2024 Visit Care Team Team Status: Active Member Role/Relationship Status Dates Feliciano Ambrosio DO Primary Care Provider Active Sta rt: December 27, 2024 Cristy Prince NP-CAttending ProviderActiveStart: December 27, 2024 Visit Care Team Team Status: Inactive Member Role/Relationship Status Dates Liliana Miller DO Attending Provider Active Start: December 27, 2024 End: December 27, 2024 Visit Care Team Team Status: Active Member Role/Relationship Status Dates Lea Peña DO Attending Provider Active Sta rt: December 30, 2024 Visit Care Team Team Status: Inactive Member Role/Relationship Status Dates Lea Peña DO Attending Provider Active Sta rt: December 30, 2024 End: December 30, 2024 Visit Care Team Team Status: Active Member Role/Relationship Status Dates Sha Pepe MD Attending Provider Active Sta rt: December 31, 2024 Visit Care Team Team Status: Active Member Role/Relationship Status Dates Sha Pepe MD Attending Provider Active Sta rt: January 01, 2025 Visit Care Team Team Status: Active Member Role/Relationship Status Dates Sha Pepe MD Attending Provider Active Sta rt: January 02, 2025 Visit Care Team Team Status: Active Member Role/Relationship Status Dates Sha Pepe MD Attending Provider Active Sta rt: January 03, 2025 Visit Care Team Team Status: Active Member Role/Relationship Status Dates Sha Pepe MD Attending Provider Active Sta rt: January 04, 2025 Patient Care Team Team Status: Active Member Role/Relationship Status Dates Mendy Bull MD Attending Provider Active Star t: January 25, 2025 Chief Complaint and Reason for Visit Chief Complaint Admit Date I62.9 October 31, 2024 11 :01am hospital f/u - subdural hematoma Septemb er 2024 9:43am M81.0 November 29, 2024 11:23am S32.010A M54.9 M48.062 R29.898 December 04, 2024 9:41am fall December 12, 2024 2: 39pm Unknown December 27, 2024 9 :51pm Unknown December 30, 2024 4 :45pm Reason for Visit Admit Date Compression fracture of L1 lumbar verteb ra [...] Type Reason(s) Provider Provider Contact Information P rovider Address Start Date Please call to schedule an appointment for right heel stage 3 pressure injury. Please call to schedule an appointment for right heel stage 3 pressure injury. [facility] CenterWork Phone: [phone] [place] [id number] Gomez APRNWork Phone: [phone] [address] [address] Health Concerns Concerns Start Date A [facility] screening has identified you as FRAIL [...] Ways to Beat the Frailty Risk [email or web address]-azojbu-erqh- vvmh-pd-fvfd-the-fra ilty-risk Allergies, Adverse Reactions, Alerts Allergen Type Severity Reaction Last Updated Verified Status Comments fentanyl Allergy Unknown Dizziness, loopy Octobe r 2024 11:23am Yes Active indomethacinAllergyUnknownDizzinessOctober 2024 11:23amYesActivezolpidem AllergyUnknownConfusion, memory lossOctober 2024 11:23amYesActive PenicillinsAllergyUnknownWeaknessOctbaptist health [facility] 2024 11:06xdIgoEufnxo2/5/25 - had a penicillin injection prior to a procedure 20-30 years ago and fell down some stairs afterward Social History Smoking Status Status Start Date End Date Date of Observa tion Ex-smoker (finding) December 14, 2024 11:17am Observation Status Observation Response Date of Response Legal Sex Male (finding) [facility] 1940 Social History Assessments Assessment Value Date Recorded SDOH Follow up December 18, 2024 10:09amQuestionAnswerDate RecordedHas the SDOH screening changed since admission?NOctb[facility] 2024 10:09am Assessment Value Date Recorded SDOH Follow up December 14, 2024 9:13amQuestionAnswerDate RecordedHas the SDOH screening changed since admission?NOctober 2024 9:13am Family History Relationship Condition Age at Onset Recorded Date/T jc mother Alzheimer's disease Unknown History of coronary artery bypass surgeryUnknownCoronary artery diseaseUnknown Myocardial infarctionUnknownHeart diseaseUnknownHypertensionUnknownbrother Myocardial infarctionUnknownfatherHepatic cirrhosisUnknownDeceasedUnknownsister Malignant neoplasmUnknownbrotherHeart diseaseUnknownsonMalignant neoplasmUnknown Problems Active Problems Problem Diagnosis/Recorded Date Onset Date Status C omments LIS (acute kidney injury) March 10, 2024 10:50am Unknow n Active Severe back painJuly 2024 2:41pmUnknownActiveOpen wound of skinOctober 2023 11:06amUnknownActivePressure ulcer of coccygeal region, stage 2 December 17, 2024 2:15pmUnknownActiveStage III pressure ulcer of right heel December 17, 2024 2:15pmUnknownActiveCompression fracture of L1 lumbar vertebra November 06, 2024 9:28amUnknownActiveCOVID-19January 2024 3:06pmUnknown ActiveInsomniaApril 2023 2:48pmUnknownActiveInsomniaJuly 2023 8:40am UnknownActiveScreening for prostate cancerJuly 2023 9:20amUnknownActiveHx of decompressive lumbar laminectomyAugust 2019 10:04hhPizwldqIospun3627- with tumor resectionLow back painNovember 2021 12:29pmUnknownActiveSleep apneaAugust 2019 10:09amUnknownActivedoes not use equipmentRadicular low back painJuly 2024 2:42pmUnknownActiveFatigueJanuary 2024 3:06pm UnknownActiveCatheter-associated urinary tract infectionJuly 2024 1:12pm UnknownActiveChronic CHFOctober 2019 11:36amUnknownActiveMuscle pareses December 27, 2023 12:23pmUnknownActiveMyxopapillary ependymomaAugust 2019 10:17emRovmiuyPigxaz1400Cqm related osteoporosisSeptember 2024 9:30am UnknownActiveBradycardiaNovember 2021 11:30amUnknownActiveEdemaOctober 2019 6:18pmUnknownActiveVenous ulcer of left legOctober 2023 12:20pm UnknownActiveHyperlipidemiaJuly 2023 8:40amUnknownActiveWeakness of both lower extremitiesSeptember 2024 9:30amUnknownActiveVenous insufficiencyJuly 2023 8:40amUnknownActiveFallsOctober 2024 2:14amUnknownActiveDVT prophylaxisOctober 2019 12:11pmUnknownActiveNeurogenic claudication due to lumbar spinal stenosisJuly 2024 2:41pmUnknownActiveUrinary tract infection associated with indwelling urethral catheterJuly 2024 1:35pmUnknownActive Intracranial hemorrhageAugust 2024 8:15pmUnknownActiveLumbar spondylolysis September 21, 2023 8:40amUnknownActiveConstipationJuly 2023 8:40amUnknown ActiveCellulitis and abscess of left legOctober 2023 12:23pmUnknownActive Inactive/Resolved Problems Problem Diagnosis/Recorded Date Onset Date Status C omments Bacteremia due to Pseudomonas 2024 8:56am Unknow n Resolved Bacteremia due to EnterococcusMa2024 8:57amUnknownResolvedImpaired activities of daily livingOctober 2019 10:53amUnknownResolvedBPH (benign prostatic hyperplasia)September 21, 2023 8:40amUnknownResolvedLow serum prealbumin December 26, 2019 11:36amUnknownResolvedAcute respiratory failure with hypoxia January 09, 2022 2:28pmUnknownResolvedMedication side effectSeptember 2019 1:02pmUnknownResolvedAcute exacerbation of congestive heart failureOctober 2019 12:07pmUnknownResolvedCHF exacerbationMay 2024 5:42pmUnknown ResolvedHematuriaMay 2024 5:42pmUnknownResolvedLacerationFebruary 2017 2:13pmUnknownResolvedAcute decompensated heart failureNovember 2021 11:43am UnknownResolvedHFrEF (heart failure with reduced ejection fraction)December 21, 2019 12:51pmUnknownResolvedComplicated UTI (urinary tract infection)2024 8:56amUnknownResolvedAbscessMay 2024 11:20amUnknownResolvedHypoxemia January 09, 2022 11:43amUnknownResolvedAtrial fibrillationJuly 2023 8:40amUnknownResolvedAcute on chronic congestive heart failure with left ventricular diastolic dysfunctionNovember 2021 2:27pmUnknownResolvedStatus post total left knee replacementSeptember 2019 8:36amUnknownResolved HypothyroidismJuly 2023 8:40amUnknownResolvedPleural effusionNovember 2021 2:28pmUnknownResolvedElevated troponinNovember 2021 11:43amUnknown ResolvedAbscess of left legMay 2024 8:57amUnknownResolvedBladder retention January 09, 2022 2:28pmUnknownResolvedAnasarcaOctober 2019 10:53am UnknownResolvedFalls frequentlyNovember 2021 2:27pmUnknownResolved Generalized weaknessOctober 2019 10:53amUnknownResolvedHypoxiaMay 2024 5:42pmUnknownResolvedSepsisMay 2024 5:49pmUnknownResolvedLeft ankle painOctober 2019 9:30amUnknownResolvedAltered mental statusSeptember 2019 11:15amUnknownResolvedDebilityOctober 2019 11:28amUnknownResolved Difficulty walkingNovember 2021 2:28pmUnknownResolvedHypertensionJuly 2023 8:40amUnknownResolvedConstipationNovember 2021 2:28pmUnknownResolved FallNovember 2021 11:43amUnknownResolvedFallAugust 2024 8:15pmUnknown ResolvedAtrial fibrillation with RVROctober 2024 2:14pmUnknownResolved Abrasion of arm, leftAugust 2024 8:15pmUnknownResolvedDehydrationSeptember 2019 1:02pmUnknownResolved Medications Medication Status Dose Units Route Directions Qty Days Refills S tart Date Stop Date End Date Reason(s) Instructions Adherence Bumetanide 1 mg tablet Discontinued 1 MG PO Alexander y 90 3April 2023 2:47pmJanuary 2024 10:17amEszopiclone 3 mg tablet Clpsfjbvdapx4LAPSFgzrt at kkfbxkq41140Ngfzh 2023 2:47pmApril 2023 3:29pmInsomnia Insomnia, unspecifiedTrazodone 50 mg yuniiaRwlliiyujhir29GESYFrcrg at bedtime as needed for zeialtqg876Umztv2023 2:49pmSeptember 2023 11:01am Eszopiclone 3 mg locxgtWmmvrmlwzhga0SICUQsgib at iphjraq84532Nizmr2023 3:29pmSeptember 2023 11:01amInsomnia Insomnia, unspecifiedLevothyroxine (Synthroid) 150 mcg lsansdDaszaycxxffb124FEI POEvery wpiqbua760Dghsy 2nd, 2024 12:40pmSeptember 2023 8:26amPotassium Chloride (Klor-Con M20) 20 mEq tablet,ER particles/rtpfgjiyXaabkpwdciyb86CCMOW Cifcn905Hnurj 2023 11:00pmJanuary 2024 12:33pmAtorvastatin 40 mg zsdxhsNdzfcjysxdwf54JGFFXtadk163Blvs 2023 1:09pmAugust 2024 6:31pm Levothyroxine (Synthroid) 150 mcg ykkbqhQzwevgovldaw867FTIIQNhfnb hvdjxwi436 November 18, 2023 8:25amSeptember 2023 11:01amEszopiclone 3 mg tablet Ngrizkomjlot1ETGCBtogy at epebvrr11540Wvnkttkhp2023 11:01amJune 2024 9:33amInsomnia Insomnia, unspecifiedLevothyroxine (Synthroid) 150 mcg pciksfCvlngf681QQVJUTbcmj pggyfoo214Ljypmxkdn2023 11:01amUnknownTrazodone 50 mg skqrhqHidela54ZALX Daily at bedtime as needed for ziiyqczj291Wgdvljfmk2023 11:01amUnknown Doxycycline Hyclate 100 mg mutzhcXubwmsoxeqqe944UUUOJlbze gcxgc585Qfhgbmt2023 11:00pmDecember 2023 9:23amOpen wound of skin Other injury of unspecified body region, initial encounterSulfamethoxazole- Trimethoprim (Bactrim Ds) 800-160 mg yfcaumUjemlvttgjdb3GUFWSIqmol dnfdi244 December 22, 2023 11:00pmDecember 2023 9:23amOpen wound of skin Other injury of unspecified body region, initial encounterMupirocin 2 % ointment Pnfyaepwwzcs5PPYXWESSTMAJMPccxy bquhz304Gplmcrz 18th, 2024 11:06amJanuary 2024 10:14amOpen wound of skin Other injury of unspecified body region, initial encounter1 application Externally Twice a dayEszopiclone 3 mg nqdkbtKdhkabjxpcgy5DBZPRdpmp at cmsiyas96 Jun2024 9:33amJune 2024 8:18amInsomnia Insomnia, unspecifiedCiprofloxacin Hcl (Cipro) 500 mg gmwvpcMajapjgblkhj254FEJZ Twice yxqhe17406Hkoi2024 11:00pmJuly 2024 2:15pmEszopiclone 3 mg xuxijgGoalqanqdruj5AGQJRcszn at ruxhtjw55037Ovpr2024 8:18amAugust 2024 6:28pmInsomnia Insomnia, unspecifiedNystatin 100,000 unit/gram thbfhsXoftet9HGCCPVZPNEFLQHxzea hcdaj360Qrfv 2024 11:28amUnknownHydrocodone-Acetaminophen (Fountain) 5-325 mg ugfcvwZmcjuarquotu4PXETLX2X as needed for udvd585[place] 2020September 2019 8:42amOther injury of unspecified body regionCephalexin (Keflex) 500 mg ybuyccqAjasapztrkxq634GDOOH04F10493Pwwotkus 2017 12:00amFebruary 2017 12:00amFebruary 2017 12:02amAtorvastatin 40 mg sfxdovUxuqpzgtyldm57CY POBedtimeAugust 2019 11:00pmOct2019 11:33amhyperlipidemia Allopurinol 300 mg syoyobIjuhyncuoufn712REHVTuovmPpqvxi 2019 11:00pm January 04, 2020 11:34amEszopiclone (Lunesta) 3 mg wdspikFbvkqnwevkbo1IVRU Daily at bedtimeAugust 2019 11:00pmOct2019 11:33amMirabegron (Myrbetriq) 50 mg tablet extended release 24 dcHqwdrmnenyti04TOOJXfurj with lunchAu2019 11:00pmOct2019 11:34amApixaban (Eliquis) 5 mg rosjakRxzmcqhrzfeb8EVKQPdnhk dailyAugust 2019 11:00pmOct2019 11:90jjt-pipJlsdhyeonf-Qnkcquwlv (Entresto) 24-26 mg ejipxvAphngdgabcxr4QILBL Twice dailyAugust 2019 11:00pmOct2019 11:33amOn Hold: Resume on 12/27/19.Carvedilol 6.25 mg TabletDiscontinued6.25MGPOTwice dailyAugust 2019 11:00pmOct2019 11:33amheartLevothyroxine 150 mcg Tablet Xtwecueeowxt976TYYONZuwykTyudzh 2019 11:00pmOct2019 11:33am hypothyroidismBumetanide 1 mg BlfkgnKfvlyvraxwkp2CNSFFuzwkGblqab 2019 11:00pmOct2019 11:33amheart failureOn Hold: Resume on 12/26/19. Digoxin 125 mcg (0.125 mg) QacnlpXancksyanafd243RZTVGLmqadErugoo 2019 11:00pmOctober 2019 11:33ama-fibMagnesium Oxide 400 mg magnesium Tablet Idfwwlfuhhls760HNWGShrahBxzblr 2019 11:00pmOct2019 11:33ama-fib Oxybutynin Chloride 10 mg Tablet Extended Release 47zmBvkkjraowhms10CRQJKxywj with lunchAugust 2019 11:00pmOct2019 11:34amUrinary symptoms Azelastine 137 mcg (0.1 %) Aerosol,SprayDiscontinuedINTRANASALAugust 2019 11:00pmAugust 2019 4:12pmAzelastine-Fluticasone 137-50 mcg/spray [place],Non-LbwyqvoGfdzeqkdwngy6DNWUCGTQMSNIMNMMdytg dailyAugust 2019 11:00pmOctober 2019 10:02amAcetaminophen (Tylenol) 325 mg Tablet Kgnpqohwemmv111JQJAOmldk dailyAugust 2019 11:00pmSeptember 2019 8:42ampainHydroxyzine Pamoate 50 mg UwiqcywSgsuttgevvgn48HBUBR7N as needed for Muscle Uubdp16Rukhob 2019 11:00pmOct2019 11:33amDocusate Sodium (Dok) 100 mg ZfjrnstHvtucipuuvhn278LRJCElktz gbgju12Vvznyw 31st, 2020 11:00pm January 04, 2020 11:33amHydroxyzine Pamoate 25 mg InqddvlShwpflsscchc68DFCBJ0S as needed for Muscle Wxrxg52Qtckzg 31st, 2020 11:00pmOct2019 11:33am Oxycodone-Acetaminophen (Percocet) 5-325 mg tabletDiscontinued1 - 2TABPOEVERY 4- 6 HOURS as needed for bjic2374Iozbglpnq2019 11:33am Presence of left artificial knee jointIpratropium-Albuterol 0.5 mg-3 mg(2.5 mg base)/3 mL solution for bfmyvhmjgdlkWygydq6DWCVPKZFTMHQMlbte times dailyOct2024 11:00pmUnknownBudesonide 0.5 mg/2 mL suspension for nebulizationActive 0.5MGINHALATIONTwice dailyOctober 2024 11:00pmUnknownAcetaminophen (Acetaminophen Extra Strength) 500 mg sudxveOhiyqz4482SVKUHnoaf times daily as needed for painOctober 2024 11:00pmUnknownApixaban (Eliquis) 5 mg tablet Tdpxjdmiqdsv8PAOAPtxhh dailyOctober 2024 11:00pmOctober 2024 10:08am Diltiazem Hcl 30 mg LxmrqlHnbxiw37ESMWCozvk kofbr928985Nxhzorj 13th, 2025 11:00pmUnknownErtapenem 1 gram Recon YlixXoaiprirvbtw4ACKAD55I675Frccrbs 13th, 2025 11:00pmOctober 2024 11:00pmOctober 2024 11:01pmPramipexole 0.25 mg tabletActive0.25MGPODaily as needed for tremor(s)0300December 18, 2024 10:08amUnknownPotassium Chloride 20 mEq Tablet Extended KlmsnsnPfdsjggnzlvc14UIF POBedtimeOct2019 11:00pmOctober 2019 11:33amOn Hold: Resume on 12/26/19.Sulfamethoxazole-Trimethoprim (Bactrim Ds) 800-160 mg Tablet Vhjrabudllvn9JNHIBA00YIxwmntk 15th, 2020 11:00pmOctober 2019 12:37pm Atorvastatin 40 mg VfddfsDentggrkufsz81COFEGntun at pmdxver498Eumotbf 29th, 2020 11:00pmApril 2023 10:57amCarvedilol 6.25 mg TabletDiscontinued6.25MGPOTwice daily with ulnwk882NzguupfJanuary 03, 2020 11:00pmNovember 2021 12:30pm Hydroxyzine Pamoate 50 mg SfudkfbUqbuezqegvdo75PKWKU5W as needed for Muscle Zjzla25Azxgphk2019 11:00pmNovember 2021 1:10pmAcetaminophen 500 mg EvxokyHcpiactxeizb6870JVPEUbqrc rfcit121Bgqnqqr 29th, 2020 11:00pmApril 2023 10:56amOxycodone-Acetaminophen 5-325 mg UuxapmOzkxayugiexm4NYRLXY6H as needed for Mild Jkts3866Vqfzmej2021 12:30pmStatus post total left knee replacement Presence of left artificial knee jointFolic Acid-Vit B6-Vit B12 (Folbee) 2.5-25-1 mg GgbjvrJbhnvnrixqyn8QRFHSQeady045Vqlfmrv 2019 11:00pmNov2021 1:09pmPotassium Chloride (Klor-Con M20) 20 mEq Tablet,Er Particles/MkgcdxhiHiunzvysgtgw25CWAVRGmkqx849Hieegov 2019 11:pmNov2021 1:35pmMagnesium Oxide 400 mg (241.3 mg magnesium) TabletDiscontinued 218SUAWBpfzz560Jtjfquz 2019 11:00pmApril 2023 10:57amLevothyroxine (Synthroid) 150 mcg ZbtdfrBpkwwzqeyjnn356SSJUKTZYDI@4326628Mmaubcs 2019 11:00pmApril 2023 10:57amDocusate Sodium (Dok) 100 mg CapsuleDiscontinued 100MGPOTwice yjcvf910Gysnyea 29th, 2020 11:00pmApril 2023 10:57amOxybutynin Chloride 5 mg Tablet Extended Release 53vxDpvjwbuofmqm76GOGPPypas with skdet943 January 03, 2020 11:00pmArh [facility] 2021 1:36pmBumetanide 1 mg Tablet Wkjwoqtjbglo6XLYADSRVA@0511852Etbqgos 2019 11:[facility] 2021 1:35pmAllopurinol 300 mg ThmpuwCyeensfokwwm012MLJJZwfkh874Ohhrvtx 2019 11:00pmApril 2023 10:57amDigoxin 125 mcg (0.125 mg) SkskjnJpfmalmxlwvi071 YGLBPWfmzq174Vvnvvxe 2019 11:[facility]2021 12:30pmFluticasone Propionate 50 mcg/actuation [place],MrbedrmhxcXfsecgjwwhnc8ZELYFWDWYT-PPDJXyuog jdgye168Zgebmde 29th, 2020 11:00pmNov2021 1:10pmHydroxyzine Pamoate 25 mg PedzceuVdpnvmyqlbfu99FMZUN4O as needed for Muscle Dflcj770Hytcxqu 2019 11:00pmJanuary 09, 2022 1:10pmDiclofenac Sodium 1 % OwlUrasvkrasrvj1ZN TOPICALThree times daily as needed for zwau029Tcbgujz 2019 11:00pmJanuary 09, 2022 1:10pmMelatonin 5 mg SsqqbvJfirerdqyman3TIMDMtbzi at sisfzei897Mfotwov 2019 11:00pmJanuary 09, 2022 1:09pmLactulose 20 gram/30 mL Solution Aeulnghsdxup82CLHJBedup as needed for Cdrpgvysgfcv2605Rxnrwmg 2019 11:00pm January 09, 2022 1:11pmMirabegron (Myrbetriq) 25 mg Tablet Extended Release 24 OmXctcspnkhbhy68DNBWWqvih with yknmq424Vinrepo 29th, 2020 11:002021 1:36pmApixaban (Eliquis) 5 mg OrzgkoVhyhzrziopwv4SDBLQnrlr tauhg364Nabbgph 2019 11:00pmApril 2023 10:57amSacubitril-Valsartan (Entresto) 24-26 mg RvlopsZymyrduurued0SQYFBFvvuc rdpwn467Babyskr 2019 11:00pmJanuary 16, 2022 12:30pmTrazodone 50 mg mjddytIrcpvjbopjtv29CDRZKpftvgrCtuotnlx 4th, 2022 11:00pmApril 2023 10:57amEszopiclone 3 mg nueycfAayesarkwhhk9FKWV BedtimeNov2021 11:00pmApril 2023 10:57amFluticasone Propionate 50 mcg/actuation spray,upsbtosliwBrhrkdkntzvg6SRSBSFATPX-BXIDZmwgf at bedtime as needed for Nasal CongestionJanuary 09, 2022 1:10pmApril 2023 10:57am Potassium Chloride (Klor-Con M20) 20 mEq tablet,ER particles/crystals Sozthrrkqvlm49CTAGXSehzx eveningJanuary 09, 2022 1:35pmApril 2023 10:57am Bumetanide 1 mg tabletDiscontinued0.5MGPODAILY@0800Nov2021 1:35pm January 16, 2022 12:30pmSulfamethoxazole-Trimethoprim (Bactrim Ds) 800-160 mg KegxnvXilfswxodkfm9DXIQZHadcx dailyNov2021 11:00pmNov2021 12:30pmstarted 01/08/22 for 7 daysOxycodone-Acetaminophen 5-325 mg Tablet Ztdwrstsmftr7PUKJGU1G as needed for Moderate Dtml769Wmblbxfl 12thpril 2023 10:57amLow back pain Low back pain, unspecifiedBumetanide 1 mg EyqngtXwsnqwydlrbg7ZKQBVVPNR@407772 January 16, 2022 12:00amApril 2023 10:57amClindamycin Hcl (Cleocin Hcl) 300 mg uddfytuRisadxrxzbus190VZAYRpzr times dailyJanuary 2024 12:00amMay 2024 3:01pmMetolazone 5 mg irsdliWnpzjyqjbfno5ZUCPUcuekMbvddmp 2024 12:00amJanuary 2024 12:33pmCarvedilol 6.25 mg tabletDiscontinued6.25MGPO Twice dailyJanuary 2024 12:00amJanuary 2024 12:33pmmust administer with a meal/foodAcetaminophen (Acetaminophen Extra Strength) 500 mg tablet Bmontixqansc575IUMWTqufl times dailyJanuary 2024 12:00amMay 2024 12:27pmBumetanide 1 mg mtppcpBrumqf1JFJKClyfiPzlalnb 2024 12:00amUnknown Carvedilol 3.125 mg TabletDiscontinued3.125MGPOTwice apuni01206Tqapyvu 2024 12:00amJuly 2024 2:14pmApixaban (Eliquis) 2.5 mg TabletDiscontinued2.5MGPO Twice avbuu20581Kghnijp 2024 12:00amMay 2024 3:01pmTamsulosin 0.4 mg CapsuleDiscontinued0.5URLRUwrgy74569Rcqincc 2024 12:00amMay 2024 3:01pmOxycodone-Acetaminophen 5-325 mg fxiibxJowgvwimrpun2IZVTQDklyk 6 hours as needed for gugg550Bolpgcj 2024 12:45pmMay 2024 12:26pmPotassium Chloride (Klor-Con M20) 20 mEq tablet,ER particles/xaxdtnilDwchou30EFXCJMgocy at bedtimeMay 2024 11:00pmUnknownDoxycycline Hyclate 100 mg tabletDiscontinued 100MGPOTwice dailyMay 2024 11:00pmMay 2024 12:26pmend date 07/14/2024 Ipratropium-Albuterol 0.5 mg-3 mg(2.5 mg base)/3 mL solution for nebulization Aujuckievoom5AZQSXLBKBUTRGngku 6 hours as needed for shortness of breath or wheezingJuly 11, 2024 11:00pmJuly 2024 12:59pmApixaban (Eliquis) 2.5 mg ZnkiwmGvciyuejfqbl6ONVMHblpn dailyMay 2024 11:00pmOctober 2024 10:08amCefepime 2 gram Recon EtzjTcrjvqzzxsop4KKYAL15Z8211Vja 2024 11:00pm September 18, 2024 2:14pmVancomycin 1,000 mg Recon KpdhOojlknwexuyj0ZQECO29G128Cwo 2024 11:00pmJuly 2024 2:16pmPolyethylene Glycol 3350 (Healthylax) 17 gram Powder In EcaotpTjlzzjwgigwe33AXQTLutal gpovr94WigJuly 16, 2024 11:00pmAugust 2024 6:29pmAcetaminophen (Acetaminophen Extra Strength) 500 mg tablet Pnicnqjlecfo627DYPXLedlb times daily as needed for pbhb888Aux 2024 12:26pm December 12, 2024 2:21pmOxycodone-Acetaminophen 5-325 mg wqkvkeByihpvblhnnt8MZW POEvery 6 hours as needed for uujt871Coj ugu2024 6:29pm Abscess of left lower extremity Cutaneous abscess of left lower limbEszopiclone (Lunesta) 3 mg xgiumhXscxcc5OCTN Daily at bedtimeJuly 2024 11:00pmUnknownPramipexole 0.25 mg tablet Discontinued0.25MGPODaily as needed for tremor(s)October 04, 2024 11:00pmOctober 2024 10:08amAtorvastatin 40 mg ujfbscIzsktj45ISZYSgxnu at bedtimeJuly 2024 11:00pmUnknownOxycodone 5 mg DigjytSojxlsbncqeg5ICRLLmzqu 4 hours as needed for Severe Ksbs6608Pgdnzx 2024Oct2024 2:19pmFall Unspecified fall, initial encounterLinezolid 600 mg dytufiZincxfanhwpz329TFJI Twice hbwey1537Kabxwu 2024 11:00pmOctober 2024 2:20pmApixaban 5 mg lzffziRydykmdvgiff7MKGQNrbqu dailyMarch 2023 11:00pmJanuary 2024 12:33pmMagnesium Oxide 400 mg magnesium xfguqunYtzyfe756OFMLTmaxq at bedtime June 05, 2023 11:00pmUnknownBumetanide 1 mg bflgviDbnfvhhdilnl7AUALBjafiOlknv 2023 11:00pmApril 2023 2:49pmDocusate Sodium 100 mg capsule Ltccmctedyva113JNUIZfafq as neededMarch 2023 11:00pmJanuary 2024 10:13amPotassium Chloride 20 mEq tablet,ER particles/zynhrgdlBctiemokijjn33LWJXI DailyMarch 2023 11:00pmApril 2023 12:46pmOxycodone-Acetaminophen 5- 325 mg mrogqhAvdmnkejdlqo3TWWHFSmbmu 6 hours as needed for rnjg2Iqfjb 2023 11:00pmJanuary 2024 12:45pmFreeTextSi tablet as needed Orally every 6 hrs; Note: Source Status: TakingDr. Brambila PRN; Provider: Daily Wiggins ( )Trazodone 50 mg dcljwcYejurrbbvunp31ULAZRipgh at bedtime as needed June 05, 2023 11:00pmApril 2023 2:49pmAtorvastatin 40 mg tablet Eqzuypmfoplv59NEJGSmnwdCrahx 2023 11:00pmJune 2023 1:09pmOxybutynin Chloride 10 mg tablet extended release 13ixCffdyjtqajyk43RGBPRtlsrTvnla 2023 11:00pmJuly 2023 8:55amMultivitamin (Daily Multi-Vitamin) tablet Wpgbbrfayjgf6BXHWPDrdkrJnofc 2023 11:00pmJanuary 2024 10:14am Acetaminophen (Tylenol) 325 mg fvreonWpakgsytwwad113JCQTYhgve 6 hours as needed June 05, 2023 11:00pmJanuary 2024 10:11amEszopiclone 3 mg tablet Juijswtyzsbf7CIMJDcjjc at [facility]time[facility]2023 11:00pmApril 2023 2:49pm Nystatin 100,000 unit/gram zelbziNnldtdxcpdte2MHMMYRSKHOAWPPwqpp dailyCoshocton [facility] 2023 11:00pmJanuary 2024 10:14amFreeTextSi application Externally Twice a day; Note: Source Status: Taking; Refills: 3; Provider: Daily Myers Mupirocin 2 % awuczisrWawwvfcaoitm4AQPOHQYEHHTYKOfott [facility] 2023 11:00pmOctober 2023 11:07amFreeTextSi application Externally Twice a day; Note: Source Status: Taking; Refills: 1; Qty: 60gram; Provider: Daily Wiggins PLevothyroxine (Synthroid) 150 mcg jmlaecIohepgczfncw613FZIYJJrodx morningCoshocton Regional [facility] Center 2023 11:00pmJuly 2023 8:53amAllopurinol 300 mg cfnrcpKvlswhebcuia157 MGPODailyCoshocton Regional Medical Center 2023 11:00pmApril 2023 1:17pmAllopurinol 300 mg tablet Zwdfeytjelcd981EKXSJhwar491[facility]ont 2023 1:16pmApril 2023 1:18pm Allopurinol 300 mg ouftgsXptmng600AWUCUsopb499Twfyb 2023 1:18pmUnknown Immunizations Immunization Event Date Not Given Reason Dose Number Manager Federal Lot Number Reason(s) Given Vaccine Information Statement (VIS) Detail Administration Location COVID-19 mRNA-1273 (Moderna) April 14, 2020 COVID-19 mRNA-1273 (Moderna)April 30OVID-19 mRNA-1273 (Moderna)May 05OVID-19 mRNA-1273 (Moderna)May 28OVID-19 mRNA-1273 (Moderna)February 18OVID-19 mRNA Bivalent Booster (Moderna)December 24, 2021Fluzone TIV High-Dose 65YR+December 06, 2017Fluzone TIV High-Dose 65YR+December 17, 2022Fluzone QIV High-Dose 65YR+December 22, 2019OJ519AA [facility]trFl[facility] Q[facility] High-Dose 65YR+December 24, 2021 Influenza, trivalentSeptember 2018influenza, unspecified formulation December 17, 2022Trivalent Influenza VaccineOctober 2017Trivalent Influenza VaccineSeptember 2018Trivalent Influenza VaccineOctober 2021Trivalent Influenza VaccineOctober 2019 Medical Equipment Device Date Implanted Device Details ART SURF LEFT 11MM 10-11EF November 05, 2019 Orthopaedic cement, non-medicatedAugust 2019UDI: [id number] cement, non-medicated November 05, 2019UDI: [id number] knee femur prosthesisAugust 2019UDI: [id number] Uncoated knee tibia prosthesis, metallicAugust 2019UDI: [id number] patella prosthesisAugust 2019UDI: [id number] Procedures Procedure Date Performed Status CT lumbar spine wo con October 31, 2024 10:02am completed XR lumbar spine 6V w bending October 31, 2024 1 0:02am completed CT head/brain wo con October 31, 2024 10:02am c ompleted XR dexa axial skeleton November 29, 2024 10:2 8am completed MR lumbar spine wo/w con December 04, 2024 8: 48am completed CT head/brain wo con December 12, 2024 11:39am c ompleted CT cervical spine wo con December 12, 2024 11:39 am completed XR chest 2V* December 12, 2024 11:39am comple fern Urine Culture December 12, 2024 completed Urine Culture December 27, 2024 completed Urine Culture December 30, 2024 completed Relevant Diagnostic Tests and/or Laboratory Data Laboratory Results Test Collection Date/Time Result Date/Time Result Interpretation Reference Range Result Comment Performing Site Troponin I High Sensitivi ty December 27, 2024 8:17pm December 27, 2024 8:17pm 131.3 pg/mL Above upper panic limits 4.0-76.1 RESULTS CALLED TO JONATHAN Prince NP @BY Holland Noel, Tat 2156CUT-OFF POINTS HAVE BEEN ESTABLISHED BASED ON THE FOURTHUNIVER ALISSA DEFINITION OF MYOCARDIAL INFARCTION. THE UPPERREFEREN CE LIMIT (URL) OF TROPONIN, DEFINED THE 99THPERCENTI LE OF cTnI DISTRIBUTION IN A REFERENCE POPULATION,H BEEN CONFIRMED THE DECISION THRESHOLD FOR MIDIAGNOSIS. 99TH PERCENTILE = 76.2 PG/MLNOTE: HIGH-SENSITI VITY TROPONIN ASSAY IS NOT INTENDED TO BEUSED IN ISOLATION BUT SHOULD BE INTERPRETED IN CONJUNCTIONW ITH OTHER DIAGNOSTIC AND CLINICAL INFORMATION. Anion GapOctober 2024 8:17pmOctober 2024 8:17pm14.3Basophils # (Auto)December 27, 2024 8:17pmOctober 2024 8:17pm0.1 10 3/uL0.0-0.1Urine Culture ReflexedOctober 2024 8:51pmOctober 2024 8:51pmYES-FRMCUrine Microscopic ReviewOctober 2024 8:51pmYESLactic Acid LevelOctober 2024 2:54pmOctober 2024 2:54pm1.5 mmol/L0.4-2.0Troponin I High Sensitivity December 30, 2024 2:54pmOctober 2024 2:45xd383.3 pg/mLAbove upper panic limits4.0-76.1RESULTS CALLED TO DR. LEA PEÑA at 1637CUT-OFF POINTS HAVE BEEN ESTABLISHED BASED ON THE FOURTHUNIVERS DEFINITION OF MYOCARDIAL INFARCTION. THE UPPERREFERENCE LIMIT (URL) OF TROPONIN, DEFINED THE 99THPERCENTILE OF cTnI DISTRIBUTION IN A REFERENCE POPULATION,HAS BEEN CONFIRMED THE DECISION THRESHOLD FOR MIDIAGNOSIS.99TH PERCENTILE = 76.2 PG/MLNOTE: HIGH-SENSITIVITY TROPONIN ASSAY IS NOT INTENDED TO BEUSED IN ISOLATION BUT SHOULD BE INTERPRETED IN CONJUNCTIONWITH OTHER DIAGNOSTIC AND CLINICAL INFORMATION.Anion GapOct2024 2:54pmOctober 2024 2:54pm14.5B-Type Natriuretic PeptideOct2024 2:54pmOctober 2024 2:17wj7567.0 pg/mLAbove upper panic limits <=1800.0RESULTS CALLED TO DR. LEA PEÑA at 1637Basophils # (Auto)December 30, 2024 2:54pmOctober 2024 2:54pm0.1 10 3/uL0.0-0.1Urine Culture Reflexed December 30, 2024 3:45pmYES-JD [facility] – NORMANVitamin B12 LevelDecember 31, 2024 4:40am December 31, 2024 4:55ha487 pg/eK374-0461Uagrjhkwd at: - [facility] [address] [id number] Director: Patrick Ortiz PhD, Phone: [phone] 27th, 2025 4:40amOct2024 4:40am9.00 ng/mL 8.60-58.90FerritinDecember 31, 2024 4:40amOct2024 4:81mg705.0 ng/mL 26.0-388.0Thyroid Stimulating Hormone 3rd GenDecember 31, 2024 4:40amOct2024 4:40am10.864 u[iU]/mLAbove high normal0.358-3.740Magnesium Level December 31, 2024 4:40amOctober 2024 4:40am2.4 mg/dL1.8-2.4Iron SaturationOctober 2024 4:40amOctober 2024 4:40am6.8 %Basophils # (Auto)December 31, 2024 4:40amOctober 2024 4:40am0.1 10 3/uL0.0-0.1Anion GapOctober 2024 8:50pmOctober 2024 8:50pm12.1HematocritOctober 2024 8:50pmOctober 2024 8:50pm26.0 %Below low vsptxu20.0-54.0Hematocrit January 01, 2025 4:19amOctober 2024 4:19am23.6 %Below lower panic limits 42.0-54.0RESULTS CALLED TO JACKI MONIQUE RN @BY Shy Haque at 0631 Anion GapOctober 2024 4:19amOctober 2024 4:19am13.7Anion GapOctober 2024 4:42amOctober 2024 4:42am11.5HematocritOctober 2024 4:42amOctober 2024 4:42am25.2 %Below low alkrgw81.0-54.0Anion GapOctober 2024 4:02amOctober 2024 4:02am13.7HematocritOctober 2024 3:22pmOctober 2024 3:22pm25.3 %Below low fdysps60.0-54.0Anion GapOctober 2024 4:24amOctober 2024 4:24am12.0Urine Microscopic ReviewNovember 2024 9:00amNovember 2024 9:00amYESAlbumin/Globulin RatioDecember 27, 2024 8:17pmOctober 2024 8:17pm0.6Basophils (%) (Auto)December 27, 2024 8:17pmOctober 2024 8:17pm0.9 %0.2-2.0Urine Other CastsOctober 2024 8:51pmOctober 2024 8:51pmNONE SEEN #/LPFNONE SEENUrine Bilirubin December 27, 2024 8:51pmNEGATIVENEGATIVEBUN/Creatinine RatioOct2024 2:54pmOctober 2024 2:54pm16.5Basophils (%) (Auto)December 30, 2024 2:54pm December 30, 2024 2:54pm0.6 %0.2-2.0Urine Other CastsOctober 2024 3:45pm NONE SEEN #/LPFNONE SEENAlbumin/Globulin RatioOctober 2024 4:40amOctober 2024 4:40am0.6Iron LevelOctober 2024 4:40amOctober 2024 4:40am 12.0 ug/dLBelow low zebpxq29.0-175.0Basophils (%) (Auto)December 31, 2024 4:40amOctober 2024 4:40am0.8 %0.2-2.0BUN/Creatinine RatioOctober 2024 8:50pmOctober 2024 8:50pm18.1HemoglobinOct2024 8:50pm December 31, 2024 8:50pm8.3 g/dLBelow low vzjisv14.0-18.0HemoglobinOctober 2024 4:19amOctober 2024 4:19am7.6 g/dLBelow low xiltup08.0-18.0 Albumin/Globulin RatioOctober 2024 4:19amOctober 2024 4:19am0.6 Albumin/Globulin RatioOctober 2024 4:42amOctober 2024 4:42am0.6 HemoglobinOctober 2024 4:42amOctober 2024 4:42am8.1 g/dLBelow low npkogj31.0-18.0Albumin/Globulin RatioOctober 2024 4:02amOctober 2024 4:02am0.6HemoglobinOctober 2024 3:22pmOctober 2024 3:22pm8.2 g/dL Below low prlypl30.0-18.0BUN/Creatinine RatioOct2024 4:24amOctober 2024 4:24am17.9Urine BilirubinNovember 2024 9:00amNovember 2024 9:00amNEGATIVENEGATIVEAlbuminOct2024 8:17pmOctober 2024 8:17pm2.7 g/dLBelow low normal3.4-5.0Eosinophils # (Auto)December 27, 2024 8:17pmOctober 2024 8:17pm0.2 10 3/uL0.0-0.7Urine Other CrystalsOct2024 8:51pmOctober 2024 8:51pmNone Seen #/HPFNone SeenUrine Occult BloodOct2024 8:51pmNEGATIVENEGATIVEBlood Urea NitrogenOct2024 2:54pmOctober 2024 2:54pm44.0 mg/dLAbove high normal7.0-18.0 Eosinophils # (Auto)December 30, 2024 2:54pmOctober 2024 2:54pm0.2 10 3/uL0.0-0.7Urine Other CrystalsOctober 2024 3:45pmNone Seen #/HPFNone Seen AlbuminOct2024 4:40amOctober 2024 4:40am2.4 g/dLBelow low normal3.4-5.0Total Iron Binding CapacityOct2024 4:40amOctober 2024 4:22ja778.0 ug/dLBelow low lwzqih398.0-450.0Eosinophils # (Auto)December 31, 2024 4:40amOctober 2024 4:40am0.2 10 3/uL0.0-0.7Blood Urea Nitrogen December 31, 2024 8:50pmOctober 2024 8:50pm41.0 mg/dLAbove high normal 7.0-18.0Mean Corpuscular HemoglobinOctober 2024 4:19amOctober 2024 4:19am28.9 pg25.9-34.0AlbuminOctober 2024 4:19amOctober 2024 4:19am 2.2 g/dLBelow low normal3.4-5.0AlbuminOctober 2024 4:42amOctober 2024 4:42am2.3 g/dLBelow low normal3.4-5.0Mean Corpuscular HemoglobinOctober 2024 4:42amOctober 2024 4:42am28.6 pg25.9-34.0Mean Corpuscular HemoglobinOctober 2024 4:02amOctober 2024 4:02am28.6 pg25.9-34.0 AlbuminOctober 2024 4:02amOctober 2024 4:02am2.0 g/dLBelow low normal3.4-5.0Blood Urea NitrogenOctober 2024 4:24amOctober 2024 4:24am20.0 mg/dLAbove high normal7.0-18.0Urine Occult BloodNov2024 9:00amNovember 2024 9:00amSMALLAbnormal (applies to non-numeric results) NEGATIVEAlkaline PhosphataseOct2024 8:17pmOctober 2024 8:17pm 143 U/LAbove high siymfu56-208Ocomeyctbrd (%) (Auto)December 27, 2024 8:17pm December 27, 2024 8:17pm2.8 %0.9-7.0Urine BacteriaOct2024 8:51pm December 27, 2024 8:51pmSMALL #/HPFAbnormal (applies to non-numeric results) NONE SEENUrine AppearanceOctober 2024 8:51pmSL CLOUDYCLEARCalcium Level December 30, 2024 2:54pmOct2024 2:54pm9.5 mg/dL8.5-10.1Eosinophils (%) (Auto)December 30, 2024 2:54pmOctober 2024 2:54pm1.9 %0.9-7.0Urine BacteriaOctober 2024 3:45pmSMALL #/HPFAbnormal (applies to non-numeric results)NONE SEENAlkaline PhosphataseOct2024 4:40amOctober 2024 4:40am96 U/P50-135Yuncklkfasj (%) (Auto)December 31, 2024 4:40amOctober 2024 4:40am2.7 %0.9-7.0Calcium LevelOct2024 8:50pmOctober 2024 8:50pm8.6 mg/dL8.5-10.1Mean Corpuscular Hemoglobin ConcentOct2024 4:19amOctober 2024 4:19am32.2 g/dL29.9-35.2Alkaline PhosphataseOct2024 4:19amOctober 2024 4:19am92 U/C67-499Zedqjbqg Phosphatase January 02, 2025 4:42amOctober 2024 4:42am86 U/G30-734Jmys Corpuscular Hemoglobin ConcentOctober 2024 4:42amOctober 2024 4:42am32.1 g/dL 29.9-35.2Mean Corpuscular Hemoglobin ConcentOct2024 4:02amOctober 2024 4:02am32.1 g/dL29.9-35.2Alkaline PhosphataseOct2024 4:02am January 03, 2025 4:02am82 U/V84-280Zmoyxwz LevelOct2024 4:24am January 04, 2025 4:24am8.4 mg/dLBelow low normal8.5-10.1Urine Appearance January 25, 2025 9:00amNovember 2024 9:00amCLEARCLEARAlanine Aminotransferase (ALT/SGPT)December 27, 2024 8:17pmOctober 2024 8:17pm30 U/C45-10FjvzegfireFumhoms 2024 8:17pmOctober 2024 8:17pm27.1 %Below low .0-54.0Urine MucusOctober 2024 8:51pmOctober 2024 8:51pm NONE SEENNONE SEENUrine ColorOctober 2024 8:51pmLT. YELLOWYELLOWChloride LevelOct2024 2:54pmOctober 2024 2:54pm97 mmol/LBelow low normal 98-107HematocritOctober 2024 2:54pmOctober 2024 2:54pm24.0 %Below low .0-54.0Urine BilirubinOct2024 3:45pmNEGATIVENEGATIVE Alanine Aminotransferase (ALT/SGPT)December 31, 2024 4:40amOctober 2024 4:40am16 U/P18-40Myugepos LevelOctober 2024 8:50pmOctober 2024 8:66jo201 mmol/LAbove high ufhuqe44-747Hrkt Corpuscular VolumeOct2024 4:19amOctober 2024 4:19am89.7 fL80.0-94.0Alanine Aminotransferase (ALT/SGPT)January 01, 2025 4:19amOctober 2024 4:19am11 U/LBelow low ivbcrf45-10Wgmjizm Aminotransferase (ALT/SGPT)January 02, 2025 4:42amOctober 2024 4:42am9 U/LBelow low vveilc65-92Pbwy Corpuscular VolumeOct2024 4:42amOctober 2024 4:42am89.0 fL80.0-94.0Mean Corpuscular Volume January 03, 2025 4:02amOctober 2024 4:02am89.0 fL80.0-94.0Alanine Aminotransferase (ALT/SGPT)January 03, 2025 4:02amOctober 2024 4:02am7 U/LBelow low hkursf17-06Uodhjhfr LevelOctober 2024 4:24amOctober 2024 4:90dq422 mmol/L77-459Cdohf ColorNovember 2024 9:00amNovember 2024 9:00amLT. YELLOWYELLOWAspartate Amino Transf (AST/SGOT)December 27, 2024 8:17pmOctober 2024 8:17pm42 U/LAbove high sqqmie57-82ZngomfiqheNogdove 23rd, 2025 8:17pmOctober 2024 8:17pm8.7 g/dLBelow low bpnwty09.0-18.0Urine RBCOct2024 8:51pmOct2024 8:83lq5-7 #/HPF0-2Urine Glucose (UA)December 27, 2024 8:51pmNEGATIVE mg/dLNEGATIVECarbon Dioxide LevelOct2024 2:54pmOct2024 2:54pm24.2 mmol/L21.0-32.0HemoglobinOct2024 2:54pmOctober 2024 2:54pm7.6 g/dLBelow low kafqnc43.0-18.0Urine Occult BloodOctober 2024 3:45pmSMALLAbnormal (applies to non-numeric results)NEGATIVEAspartate Amino Transf (AST/SGOT)December 31, 2024 4:40am December 31, 2024 4:40am17 U/G05-86Luhdcz Dioxide LevelOct2024 8:50pmOctober 2024 8:50pm25.0 mmol/L21.0-32.0Mean Platelet VolumeOct2024 4:19amOct2024 4:19am9.6 fL9.5-13.5Aspartate Amino Transf (AST/SGOT)January 01, 2025 4:19amOctober 2024 4:19am14 U/LBelow low aiopgj12-53Srblpudxb Amino Transf (AST/SGOT)January 02, 2025 4:42amOctober 2024 4:42am20 U/Y97-85Diyx Platelet VolumeOctober 2024 4:42amOct2024 4:42am9.9 fL9.5-13.5Mean Platelet VolumeOct2024 4:02am January 03, 2025 4:02am9.6 fL9.5-13.5Aspartate Amino Transf (AST/SGOT)January 03, 2025 4:02amJanuary 03, 2025 4:02am17 U/O63-21Ncgmlz Dioxide LevelOct2024 4:24amOct2024 4:24am24.7 mmol/L21.0-32.0Urine Glucose (UA)January 25, 2025 9:00amNovemb2024 9:00amNEGATIVE mg/dLNEGATIVE BUN/Creatinine RatioOctober 2024 8:17pmOct2024 8:17pm18.0 Immature Granulocyte # (Auto)December 27, 2024 8:17pmOctober 2024 8:17pm 0.04 10 3/uLAbove high normal0.00-0.03Urine Squamous Epithelial CellsOct2024 8:51pmOct2024 8:51pmNONE SEEN #/LPFNONE/RAREUrine Ketones December 27, 2024 8:51pmNEGATIVE mg/dLNEGATIVECreatinineOct2024 2:54pmOctober 2024 2:54pm2.66 mg/dLAbove high normal0.70-1.30Immature Granulocyte # (Auto)December 30, 2024 2:54pmOctober 2024 2:54pm0.04 10 3/uLAbove high normal0.00-0.03Urine AppearanceOct2024 3:45pmCLEAR CLEARImmature Granulocyte # (Auto)December 31, 2024 4:40amOctober 2024 4:40am0.01 10 3/uL0.00-0.03CreatinineOct2024 8:50pmOct2024 8:50pm2.26 mg/dLAbove high normal0.70-1.30Platelet CountOctober 2024 4:19amOctober 2024 4:84hb707 10 3/wJ533-110OSR/Creatinine RatioOct2024 4:19amOctober 2024 4:19am19.0BUN/Creatinine RatioOct2024 4:42amOct2024 4:42am18.5Platelet CountOct2024 4:42am January 02, 2025 4:65hy331 10 3/bT829-984Dtavvkmi CountOct2024 4:02amOct2024 4:59yy103 10 3/jV796-819LZW/Creatinine RatioOct2024 4:02amOct2024 4:02am18.9CreatinineOct2024 4:24amOct2024 4:24am1.12 mg/dL0.70-1.30Urine KetonesNov2024 9:00amNovember 2024 9:00amNEGATIVE mg/dLNEGATIVEBlood Urea Nitrogen December 27, 2024 8:17pmOct2024 8:17pm24.0 mg/dLAbove high normal 7.0-18.0Immature Granulocyte % (Auto)December 27, 2024 8:17pmOctober 2024 8:17pm0.5 %0.0-0.5Urine WBCOctober 2024 8:51pmOctober 2024 8:51pm 10-20 #/HPFAbnormal (applies to non-numeric results)NONE SEENUrine Leukocyte EsteraseOctober 2024 8:51pmSMALLAbnormal (applies to non-numeric results) NEGATIVEEstimated GFR ()December 30, 2024 2:54pmOctober 2024 2:26ro78Ztllu low normal>=60 mL/min/1.73m 2Immature Granulocyte % (Auto) December 30, 2024 2:54pmOctober 2024 2:54pm0.3 %0.0-0.5Urine ColorOctober 2024 3:45pmLT. YELLOWYELLOWImmature Granulocyte % (Auto)December 31, 2024 4:40amOctober 2024 4:40am0.1 %0.0-0.5Estimated GFR () December 31, 2024 8:50pmOctober 2024 8:85tl92Eohgc low normal>=60 mL/min/1.73m 2Red Blood CountOctober 2024 4:19amOctober 2024 4:19am 2.63 10 6/uLBelow low normal4.70-6.10Blood Urea NitrogenOctober 2024 4:19amOctober 2024 4:19am39.0 mg/dLAbove high normal7.0-18.0Blood Urea NitrogenOctober 2024 4:42amOctober 2024 4:42am30.0 mg/dLAbove high normal7.0-18.0Red Blood CountOctober 2024 4:42amOctober 2024 4:42am 2.83 10 6/uLBelow low normal4.70-6.10Red Blood CountOctober 2024 4:02am January 03, 2025 4:02am2.73 10 6/uLBelow low normal4.70-6.10Blood Urea NitrogenOctober 2024 4:02amOctober 2024 4:02am24.0 mg/dLAbove high normal7.0-18.0Estimated GFR ()January 04, 2025 4:24amOctober 2024 4:24am>60>=60 mL/min/1.73m 2Urine Leukocyte EsteraseNovember 2024 9:00amNovember 2024 9:00amMODERATEAbnormal (applies to non-numeric results)NEGATIVECalcium LevelOctober 2024 8:17pmOctober 2024 8:17pm 8.9 mg/dL8.5-10.1Lymphocytes # (Auto)December 27, 2024 8:17pmOctober 2024 8:17pm1.2 10 3/uL1.2-3.8Urine YeastOct2024 8:51pmOctober 2024 8:51pmSEENAbnormal (applies to non-numeric results)NONE SEENMany budding yeastModerate HyphaeUrine NitriteOctober 2024 8:51pmNEGATIVENEGATIVE Estimated GFR (Non- AmericanDecember 30, 2024 2:54pmOctober 2024 2:99sp50Xjaoz low normal>=60 mL/min/1.73m 2Lymphocytes # (Auto)December 30, 2024 2:54pmOctober 2024 2:54pm1.2 10 3/uL1.2-3.8Urine Glucose (UA)December 30, 2024 3:45pmNEGATIVE mg/dLNEGATIVELymphocytes # (Auto)December 31, 2024 4:40amOctober 2024 4:40am1.0 10 3/uLBelow low normal1.2-3.8Estimated GFR (Non- AmericanDecember 31, 2024 8:50pmOctober 2024 8:97fg45Uoiuw low normal>=60 mL/min/1.73m 2Red Cell Distribution WidthOct2024 4:19amOctober 2024 4:19am16.7 %Above high drqloo14.0-15.0Calcium Level January 01, 2025 4:19amOctober 2024 4:19am8.6 mg/dL8.5-10.1Calcium Level January 02, 2025 4:42amOctober 2024 4:42am8.6 mg/dL8.5-10.1Red Cell Distribution WidthOct2024 4:42amOctober 2024 4:42am16.3 %Above high uabrwo43.0-15.0Red Cell Distribution WidthOct2024 4:02amOctober 2024 4:02am16.3 %Above high .0-15.0Calcium LevelOct2024 4:02amOctober 2024 4:02am8.4 mg/dLBelow low normal8.5-10.1Estimated GFR (Non- AmericanJanuary 04, 2025 4:24amOctober 2024 4:24am>60>=60 mL/min/1.73m 2Urine NitriteNovember 2024 9:00amNovember 2024 9:00am POSITIVEAbnormal (applies to non-numeric results)NEGATIVEChloride LevelDecember 27, 2024 8:17pmOctober 2024 8:17pm97 mmol/LBelow low fikvgr65-180 Lymphocytes (%) (Auto)December 27, 2024 8:17pmOctober 2024 8:17pm14.4 % Below low rntjaq50.5-60.0Urine pHOctober 2024 8:51pm5.55.0-9.0Glucose LevelOct2024 2:54pmOctober 2024 2:75un049 mg/wS93-304 Lymphocytes (%) (Auto)December 30, 2024 2:54pmOctober 2024 2:54pm10.4 % Below low jvnivb81.5-60.0Urine KetonesOctober 2024 3:45pmNEGATIVE mg/dL NEGATIVELymphocytes (%) (Auto)December 31, 2024 4:40amOctober 2024 4:40am 14.0 %Below low nwohdr90.5-60.0Glucose LevelOctober 2024 8:50pmOctober 2024 8:91bb930 mg/dLAbove high ffsrxu62-270Cnvyhvpey White Blood Count January 01, 2025 4:19amOctober 2024 4:19am6.8 10 3/uL4.0-11.0Chloride LevelOct2024 4:19amOctober 2024 4:86zk215 mmol/D05-858Ijoaxusl LevelOctober 2024 4:42amOctober 2024 4:51qn942 mmol/U89-380Gtxrrjtpr White Blood CountOct5 4:42amOctober 2024 4:42am7.2 10 3/uL 4.0-11.0Corrected White Blood CountOct2024 4:02amOctober 2024 4:02am5.9 10 3/uL4.0-11.0Chloride LevelOctober 2024 4:02amOctober 2024 4:75fw561 mmol/O62-762Iwecbux LevelOctober 2024 4:24amOctober 2024 4:24am76 mg/wK64-548Bzdoc pHNovember 2024 9:00amNovember 2024 9:00am7.55.0-9.0Carbon Dioxide LevelOctober 2024 8:17pmOctober 2024 8:17pm24.8 mmol/L21.0-32.0Mean Corpuscular HemoglobinOctober 2024 8:17pm December 27, 2024 8:17pm28.9 pg25.9-34.0Urine ProteinOctober 2024 8:51pm NEGATIVE mg/dLNEG/TRACEPotassium LevelOctober 2024 2:54pmOctober 2024 2:54pm4.7 mmol/L3.5-5.1Mean Corpuscular HemoglobinOctober 2024 2:54pm December 30, 2024 2:54pm28.8 pg25.9-34.0Urine Leukocyte EsteraseOctober 2024 3:45pmMODERATEAbnormal (applies to non-numeric results)NEGATIVEMean Corpuscular HemoglobinOctober 2024 4:40amOctober 2024 4:40am28.3 pg 25.9-34.0Potassium LevelOctober 2024 8:50pmOctober 2024 8:50pm4.1 mmol/L3.5-5.1Carbon Dioxide LevelOctober 2024 4:19amOct2024 4:19am25.1 mmol/L21.0-32.0Carbon Dioxide LevelOctober 2024 4:42amOctober 2024 4:42am24.1 mmol/L21.0-32.0Carbon Dioxide LevelOctober 2024 4:02amOctober 2024 4:02am22.6 mmol/L21.0-32.0Potassium LevelOctober 2024 4:24amOctober 2024 4:24am3.7 mmol/L3.5-5.1Urine ProteinNovember 2024 9:00amNovember 2024 9:00am30 mg/dLAbnormal (applies to non-numeric results)NEG/TRACECreatinineOctober 2024 8:17pmOctober 2024 8:17pm 1.33 mg/dLAbove high normal0.70-1.30Mean Corpuscular Hemoglobin ConcentOctober 2024 8:17pmOctober 2024 8:17pm32.1 g/dL29.9-35.2Urine Specific GravityOctober 2024 8:51pm<=1.005Abnormal (applies to non-numeric results) 1.005-1.025Sodium LevelOctober 2024 2:54pmOctober 2024 2:18mf913 mmol/LBelow low hjgjyz810-815Qfte Corpuscular Hemoglobin ConcentOctober 2024 2:54pmOctober 2024 2:54pm31.7 g/dL29.9-35.2Urine MucusOctober 2024 3:45pmNONE SEENNONE SEENMean Corpuscular Hemoglobin ConcentOctober 2024 4:40amOctober 2024 4:40am31.7 g/dL29.9-35.2Sodium LevelOctober 2024 8:50pmOctober 2024 8:83is358 mmol/Y903-197VeotfbjcajCrgzgpz 2024 4:19amOctober 2024 4:19am2.05 mg/dLAbove high normal0.70-1.30 CreatinineOctober 2024 4:42amOctober 2024 4:42am1.62 mg/dLAbove high normal0.70-1.30CreatinineJanuary 03, 2025 4:02amOctober 2024 4:02am1.27 mg/dL0.70-1.30Sodium LevelJanuary 04, 2025 4:24amOctober 2024 4:52bl078 mmol/H662-948Lfcgr Specific GravityNov2024 9:00amNovember 2024 9:00am1.0101.005-1.025Estimated GFR ()December 27, 2024 8:17pmDecember 27, 2024 8:17pm>60>=60 mL/min/1.73m 2Mean Corpuscular Volume December 27, 2024 8:17pmOctober 2024 8:17pm90.0 fL80.0-94.0Urine UrobilinogenOct2024 8:51pm0.2 EU/dL0.2-1.0Mean Corpuscular Volume December 30, 2024 2:54pmOctober 2024 2:54pm90.9 fL80.0-94.0Urine Nitrite December 30, 2024 3:45pmPOSITIVEAbnormal (applies to non-numeric results) NEGATIVEMean Corpuscular VolumeDecember 31, 2024 4:40amOctober 2024 4:40am89.3 fL80.0-94.0Estimated GFR ()January 01, 2025 4:19am January 01, 2025 4:56qp83Mpwcb low normal>=60 mL/min/1.73m 2Estimated GFR ()January 02, 2025 4:42amOctober 2024 4:84fp24Zkqxn low normal>=60 mL/min/1.73m 2Estimated GFR ()January 03, 2025 4:02amOctober 2024 4:02am>60>=60 mL/min/1.73m 2Urine UrobilinogenNov2024 9:00amNovember 2024 9:00am0.2 EU/dL0.2-1.0Estimated GFR (Non- AmericanOctober 2024 8:17pmOctober 2024 8:49yi97Nxatl low normal>=60 mL/min/1.73m 2Monocytes # (Auto)December 27, 2024 8:17pmOctober 2024 8:17pm0.7 10 3/uL0.3-0.8Monocytes # (Auto)December 30, 2024 2:54pm December 30, 2024 2:54pm0.8 10 3/uL0.3-0.8Urine pHOctober 2024 3:45pm6.0 5.0-9.0Monocytes # (Auto)December 31, 2024 4:40amOctober 2024 4:40am0.5 10 3/uL0.3-0.8Estimated GFR (Non- AmericanOctober 2024 4:19am January 01, 2025 4:97co24Jezbw low normal>=60 mL/min/1.73m 2Estimated GFR (Non- AmericanOctober 2024 4:42amOctober 2024 4:81ww49Zauyh low normal>=60 mL/min/1.73m 2Estimated GFR (Non- AmericanOctober 2024 4:02amOctober 2024 4:97lc58Pbbcx low normal>=60 mL/min/1.73m 2 GlobulinOct2024 8:17pmOctober 2024 8:17pm4.2 g/dLMonocytes (%) (Auto)December 27, 2024 8:17pmOctober 2024 8:17pm8.6 %1.7-12.0Monocytes (%) (Auto)December 30, 2024 2:54pmOctober 2024 2:54pm6.9 %1.7-12.0Urine ProteinOctober 2024 3:45pmNEGATIVE mg/dLNEG/TRACEGlobulinOctober 2024 4:40amOct2024 4:40am3.7 g/dLMonocytes (%) (Auto)December 31, 2024 4:40amOctober 2024 4:40am6.8 %1.7-12.0GlobulinOct2024 4:19amOctober 2024 4:19am3.6 g/dLGlobulinOct2024 4:42amOct2024 4:42am3.7 g/dLGlobulinOct2024 4:02amOct2024 4:02am3.6 g/dLGlucose LevelOct2024 8:17pmOct2024 8:17pm92 mg/oS07-715Fsdv Platelet VolumeOct2024 8:17pmOct2024 8:17pm10.6 fL9.5-13.5Mean Platelet VolumeOct2024 2:54pmOctober 2024 2:54pm9.5 fL9.5-13.5Urine RBCOct2024 3:05mm8-7 #/HPFAbnormal (applies to non-numeric results)0-2Mean Platelet VolumeOct2024 4:40am December 31, 2024 4:40am9.7 fL9.5-13.5Glucose LevelOct2024 4:19am January 01, 2025 4:19am88 mg/kO91-791Ypvewin LevelOct2024 4:42am January 02, 2025 4:42am96 mg/oV45-849Iukavjn LevelOct2024 4:02am January 03, 2025 4:02am87 mg/gY34-549Yirndlnfc LevelOct2024 8:17pm December 27, 2024 8:17pm5.1 mmol/L3.5-5.1Neutrophils # (Auto)December 27, 2024 8:17pmOct2024 8:17pm5.9 10 3/uL1.4-6.5Neutrophils # (Auto)December 30, 2024 2:54pmOctober 2024 2:54pm9.5 10 3/uLAbove high normal1.4-6.5 Urine Specific GravityDecember 30, 2024 3:45pm<=1.005Abnormal (applies to non- numeric results)1.005-1.025Neutrophils # (Auto)December 31, 2024 4:40amOctober 2024 4:40am5.3 10 3/uL1.4-6.5Potassium LevelOct2024 4:19am January 01, 2025 4:19am3.8 mmol/L3.5-5.1Potassium LevelOctober 2024 4:42amOctober 2024 4:42am3.6 mmol/L3.5-5.1Potassium LevelOctober 2024 4:02amOctober 2024 4:02am3.3 mmol/LBelow low normal3.5-5.1Sodium LevelOct2024 8:17pmOctober 2024 8:02gl079 mmol/LBelow low -878Sqrkxttyjew (%) (Auto)December 27, 2024 8:17pmOctober 2024 8:17pm72.8 %43.0-75.0Neutrophils (%) (Auto)December 30, 2024 2:54pmOctober 2024 2:54pm79.9 %Above high fycoxm48.0-75.0Urine Squamous Epithelial Cells December 30, 2024 3:45pmNONE SEEN #/LPFNONE/RARENeutrophils (%) (Auto)December 31, 2024 4:40amOctober 2024 4:40am75.6 %Above high .0-75.0Sodium LevelOctober 2024 4:19amOctober 2024 4:60cv843 mmol/Q658-261Xcjdvk LevelOctober 2024 4:42amOctober 2024 4:43yk867 mmol/J498-370Zvozms LevelOctober 2024 4:02amOctober 2024 4:73rh978 mmol/LBelow low uqekns020-115Rhujz BilirubinOctober 2024 8:17pmOctober 2024 8:17pm 0.5 mg/dL0.2-1.0Platelet CountOctober 2024 8:17pmOctober 2024 8:17pm 244 10 3/tS785-929Yaixpuzc CountOctober 2024 2:54pmOctober 2024 2:64bl056 10 3/eC190-501Eckld UrobilinogenOctober 2024 3:45pm0.2 EU/dL 0.2-1.0Total BilirubinOctober 2024 4:40amOctober 2024 4:40am0.5 mg/dL0.2-1.0Platelet CountOctober 2024 4:40amOctober 2024 4:52ws605 10 3/kH488-186Cerso BilirubinOctober 2024 4:19amOctober 2024 4:19am 0.5 mg/dL0.2-1.0Total BilirubinOctober 2024 4:42amOctober 2024 4:42am1.0 mg/dL0.2-1.0Total BilirubinOctober 2024 4:02amOctober 2024 4:02am0.5 mg/dL0.2-1.0Total ProteinOctober 2024 8:17pmOctober 2024 8:17pm6.9 g/dL6.4-8.2Red Blood CountOct2024 8:17pmOctober 2024 8:17pm3.01 10 6/uLBelow low normal4.70-6.10Red Blood CountOct2024 2:54pmOctober 2024 2:54pm2.64 10 6/uLBelow low normal4.70-6.10Urine WBC December 30, 2024 3:80vy7-33 #/HPFAbnormal (applies to non-numeric results)NONE SEENTotal ProteinOctober 2024 4:40amOctober 2024 4:40am6.1 g/dL Below low normal6.4-8.2Red Blood CountOctober 2024 4:40amOctober 2024 4:40am2.72 10 6/uLBelow low normal4.70-6.10Total ProteinOct2024 4:19amOct2024 4:19am5.8 g/dLBelow low normal6.4-8.2Total Protein January 02, 2025 4:42amOctober 2024 4:42am6.0 g/dLBelow low normal 6.4-8.2Total ProteinOct2024 4:02amOctober 2024 4:02am5.6 g/dL Below low normal6.4-8.2Red Cell Distribution WidthOct2024 8:17pm December 27, 2024 8:17pm16.9 %Above high kbgfiz70.0-15.0Red Cell Distribution WidthOct2024 2:54pmOct2024 2:54pm16.9 %Above high normal 11.0-15.0Urine YeastOct2024 3:45pmSEENAbnormal (applies to non- numeric results)NONE SEENMANY BUDDING YEASTMODERATE HYPHAERed Cell Distribution WidthOctober 2024 4:40amOct2024 4:40am16.9 %Above high normal 11.0-15.0Corrected White Blood CountOctober 2024 8:17pmOct2024 8:17pm8.1 10 3/uL4.0-11.0Corrected White Blood CountOctober 2024 2:54pm December 30, 2024 2:54pm11.9 10 3/uLAbove high normal4.0-11.0Corrected White Blood CountOctober 2024 4:40amOctober 2024 4:40am7.1 10 3/uL4.0-11.0 Corrected White Blood CountOctober 2024 10:42amOctober 2024 11:26am 3.6 10*3/uLBelow low normal4.1-10.5[facility] [id number] [address] [place] [address] 16173Jwsdadposkq WBC CountOctober 2024 10:42amOctober 2024 11:26am3.6 10*3/uLBelow low normal4.1-10.5F[facility] [id number] [address] [place] [address] 66660Thc Blood CountOctober 2024 10:42amOctober 2024 11:26am3.00 10*6/uLBelow low normal3.90-5.60[facility] [id number] [address] [place] [address] 58688ZrucygymzjDpquqaz 2024 10:42amOctober 2024 11:26am 8.6 g/dLBelow low bhkkze14.0-17.0[facility] [id number] [address] [place] [address] 24810CwlvdwkwltLlikfon 2024 10:42amOctober 2024 11:26am 26.3 %Below low aehszb66.8-50.0[facility] [id number] [address] [place] [address] 98833Segc Corpuscular VolumeOctober 2024 10:42amOctober 2024 11:26am87.8 fL83.5-101[facility] [id number] [address] [place] [address] 37596Mzit Corpuscular HemoglobinOctober 2024 10:42amOctober 2024 11:26am28.6 pg27.5-35.2F[facility] [id number] [address] [place] [address] 27225Fvfr Corpuscular Hemoglobin ConcentOctober 2024 10:42am October 2024 11:26am32.6 g/dL32.5-35.6F[facility] [id number] [address] [place] [address] 94400Jua Cell Distribution WidthOctober 2024 10:42amOctober 2024 11:26am18.1 %Above high jgmzek06.0-14.8[facility] [id number] [address] [facility] 72814Grluftbt CountOctober 2024 10:42amOctober 2024 11:68tk764 10*3/fW869-625VgqhwexomTrihealth [facility] [id number] [address] [facility] 53854Qwtb Platelet VolumeOctober 2024 10:42amOctober 2024 11:26am7.4 fL6.6-10.1F[facility] [id number] [address] [facility] 77876Mhkicrko Distribution WidthOct2024 11:25amOctober 2024 11:48am18.74 %0.00-20.00[facility] [id number] [address] [facility] 08257Osagjkhists (%) (Auto)December 18, 2024 10:42amOctober 2024 11:26am65.6 %.[facility] [id number] [address] [facility] 92408Hnmrqhsxima (%) (Auto)December 18, 2024 10:42amOctober 2024 11:26am18.6 %.[facility] [id number] [address] [facility] 98825Ndljtgapi (%) (Auto)December 18, 2024 10:42amOctober 2024 11:26am8.6 %.[facility] [id number] [address] [facility] 33967Eekjmuqgpeo (%) (Auto)December 18, 2024 10:42amOctober 2024 11:26am6.5 %.[facility] [id number] [address] [facility] 36272Qhgsokqtj (%) (Auto)December 18, 2024 10:42amOctober 2024 11:26am0.7 %.[facility] [id number] [address] [facility] 06920Lgooxcztz RBC Relative Count (auto)December 18, 2024 10:42am December 18, 2024 11:26am0.0 /100{WBC}0-0.5[facility] [id number] [address] [place] [address] 17277Bqqemprsjzk # (Auto)December 18, 2024 10:42amOctober 2024 11:26am2.4 10*3/uL1.8-7.7F[facility] [id number] [address] [place] [address] 80039Omiofjntreo # (Auto)December 18, 2024 10:42amOctober 2024 11:26am0.7 10*3/uLBelow low normal1.00-4.8[facility] [id number] [address] [place] [address] 89159Slaueuyiw # (Auto)December 18, 2024 10:42amOctober 2024 11:26am0.3 10*3/uL0.0-0.8[facility] [id number] [address] [place] [address] 27311Jqxzcuhfgwt # (Auto)December 18, 2024 10:42amOctober 2024 11:26am0.2 10*3/uL0.0-0.45[facility] [id number] [address] [place] [address] 71051Dejhulunl # (Auto)December 18, 2024 10:42amOctober 2024 11:26am0.0 10*3/uL0.0-0.2F[facility] [id number] [address] [place] [address] 38058Tkjvnrnjrdy TimeOctober 2024 4:39amOctober 2024 5:38am27.3 [facility] high normal9.0-12.9A hematocrit value greater than 55% may lead to inaccurate results in coagulation testing. Patientshaving hematocrit values >55% require a special collection tube for coagulation studies. Please c ontact the laboratory at [phone] for redraw instructions.[facility] [id number] [address] [facility] 71586Iegdcpgsn Time International RatioOctober 2024 4:39am December 13, 2024 5:38am2.5INR Therapeutic Range A) Pre- and Peroperative OAT started two weeks before surgery. NOT HIP SURGERY: 1.5 - 2.5 HIP SURGERY: 2 - 3B) Primary and secondary prevention of venous THROMBOSIS: 2 - 3C) Active venous thrombosis, pulmonary embolismand prevention of recurrent venous thrombosis: 2 - 3D) Prevention of arterial thromboembolismincluding patients with mechanical heart valves: 3 - 4.5[facility] [id number] [address] [facility] 16840Yimebiyti Partial Thromboplast TimeOctober 2024 4:39am December 13, 2024 5:38am38.9 sAbove high .1-36.5A hematocrit value greater than 55% may lead to inaccurate results in coagulation testing. Patients having hematocrit values >55% require a special collection tube for coagulation studies. Please contact the laboratory at [phone] for redraw instructions. [facility] [id number] [address] [facility] 39223Khkkc ColorOctober 2024 12:19pmOctober 2024 12:38pm ColorlessYellowTrihealth Bethesda North Hospital [facility] [id number] [address] [facility] 88889Tbbop AppearanceOctober 2024 12:19pmOctober 2024 12:38pmClearClearTrihealth [facility]hes[facility] [id number] [address] [facility] 76563Suxnj Specific GravityOctober 2024 12:19pmOctober 2024 12:38pm1.0041.001-1.030[facility] [id number] [address] [facility] 05996Cozpp pHOctober 2024 12:19pmOctober 2024 12:38pm5.5 5.0-9.0[facility] [id number] [address] [facility] 10831Zhxyn Leukocyte EsteraseOctober 2024 12:19pmOctober 2024 12:38pm2+Above high normalNegativeTrihealth [facility] [id number] [address] [facility] 69306Rdedh NitriteOctober 2024 12:19pmOctober 2024 12:38pm NegativeNegativeTrihealth [facility] [id number] [address] [facility] 47364Lzswu ProteinOctober 2024 12:19pmOctober 2024 12:38pm Negative mg/dLNegativeTrihealth [facility] [id number] [address] [facility] 70161Uplke Glucose (UA)December 12, 2024 12:19pmOctober 2024 12:38pmNormal mg/dLNormDunlap Memorial [facility] [id number] [address] [facility] 68556Pthfl KetonesOctober 2024 12:19pmOctober 2024 12:38pm NegativeNegativeTrihealth [facility] [id number] [address] [facility] 39176Ejbbc UrobilinogenOctober 2024 12:19pmOctober 2024 12:38pmNormal mg/dLNormDunlap Memorial Hospital [facility] [id number] [address] [facility] 37933Kqnzu BilirubinOctober 2024 12:19pmOctober 2024 12:38pmNegativeNegativeTrihealth [facility] [id number] [address] [facility] 55683Rvpjo Occult BloodOctober 2024 12:19pmOctober 2024 12:38pm1+Above high normalNegativeTrihealth [facility] [id number] [address] [facility] 00324Yuagr RBCOctober 2024 12:19pmOctober 2024 12:56pd0-3 [HPF]0-4F[facility] [id number] [address] [facility] 50495Rosel WBCOctober 2024 12:19pmOctober 2024 12:39pm10- 19 [HPF]Above high normal0-4F[facility] [id number] [address] [facility] 92676Ucfgp Squamous Epithelial CellsOctober 2024 12:19pmOctober 2024 12:39pmN/AFKn[facility] [id number] [address] [facility] 68869Tunov BacteriaOctober 2024 12:19pmOctober 2024 12:39pmRare [HPF]None SeenTrihealth Bethesda North Hospital Ctr [id number] [address] [facility] 46154Fwbvz Hyaline CastsOctober 2024 12:19pmOctober 2024 12:87xc3-6 [LPF]0-8[facility] [id number] [address] [facility] 94587Ghkqd MucusOctober 2024 12:19pmOctober 2024 12:39pm Rare [LPF][facility] [id number] [address] [place] [address] 88242Duqkqil LevelOctober 2024 7:13amOctober 2024 8:05am 84 mg/lF87-283IKV recommended reference rangeRandom Glucose Reference Range is dependent on time and content of last meal. Glucose of more than 200 mg/dL in a nonstressed, ambulatory subject supports the diagnosisof Diabetes Mellitus. [facility] [id number] [address] [place] [address] 44157Rrzmt Urea NitrogenOctober 2024 7:13amOctober 2024 8:05am20 mg/dL7-25[facility] [id number] [address] [place] [address] 36681LtnrodgynkLpewdwt 2024 7:13amOctober 2024 8:05am 1.20 mg/dL0.70-1.30[facility] [id number] [address] [place] [address] 12402Qmwpggray GFR (CKD-EPI)December 17, 2024 7:13amOctober 2024 8:05am> 60.0 mL/MinTrihealth Bethesda North Hospital [facility]tr [id number] [address] [place] [address] 38322Jrprcx LevelOctober 2024 7:13amOctober 2024 8:05am 135 mmol/LBelow low fipuzm181-869BfkjjoxbbTrihealth [facility] [id number] [address] [place] [address] 30714Fovukufgb LevelOctober 2024 7:13amOctober 2024 8:05am3.8 mmol/L3.5-5.1F[facility] [id number] [address] [facility] 16255Eopeihux LevelOctober 2024 7:13amOctober 2024 8:49gc485 mmol/D34-270RtrlwmablTrihealth [facility] [id number] [address] [facility] 51748Mhdyvx Dioxide LevelOctober 2024 7:13amOctober 2024 8:05am26.3 mmol/L21.0-31.0[facility] [id number] [address] [facility] 88853Fxxwr GapOctober 2024 7:13amOctober 2024 8:05am9.5 mEq/L6.0-15.0[facility] [id number] [address] [facility] 96964Fqgllkw LevelOctober 2024 7:13amOctober 2024 8:05am 8.4 mg/dLBelow low normal8.6-10.3F[facility] [id number] [address] [facility] 01718Nxdvhcvmp LevelOctober 2024 4:39amOctober 2024 5:37am 1.8 mg/dLBelow low normal1.9-2.7F[facility] [id number] [address] [place] [address] 28743Dmiqv ProteinOctober 2024 5:23amOctober 2024 6:46am 6.6 g/dL6.4-8.9[facility] [id number] [address] [place] [address] 27557SydmjbfQmiqpos 2024 5:23amOctober 2024 6:46am3.4 g/dLBelow low normal3.5-5.7F[facility] [id number] [address] [facility] 53812XunjgzfwHbaibap 2024 5:23amOctober 2024 6:46am3.2 g/dLTrihealth Bethesda North Hospital [facility] [id number] [address] [facility] 81270Bplyvgz/Globulin RatioOctober 2024 5:23amOctober 2024 6:46am1.1F[facility] [id number] [address] [facility] 75053Dfpqm BilirubinOctober 2024 5:23amOctober 2024 6:46am0.8 mg/dL0.3-1.0[facility] [id number] [address] [facility] 80231Sjyhpvzik Amino Transf (AST/SGOT)December 15, 2024 5:23am December 15, 2024 6:46am23 U/G47-03JqrwlqelrTrihealth Bethesda [facility] [id number] [address] [place] [address] 74330Yvvqmpc Aminotransferase (ALT/SGPT)December 15, 2024 5:23am December 15, 2024 6:46am10 U/L7-52[facility] [id number] [address] [place] [address] 61231Nfkonlnc PhosphataseOctober 2024 5:23amOctober 2024 6:46am99 U/X38-022FsvanqecrTrihealth Bethesda North [facility] [id number] [address] [facility] 50028Hfyn LevelOctober 2024 4:39amOctober 2024 4:38pm11 ug/dLBelow low fnxsib18-932FqkldjbfcTrihealth Bethesda [facility] [id number] [address] [place] [address] 67031Jjfnu Iron Binding CapacityOctober 2024 4:39amOctober 2024 4:06og007 ug/dLBelow low rasmck201-480FrzfymtaiTrihealth Bethesda North [facility] [id number] [address] [place] [address] 13469Anhi SaturationOctober 2024 4:39amOctober 2024 4:38pm 5.4 %Below low qmflua50-11JpemhkwqwTrihealth Bethesda North [facility] [id number] [address] [place] [address] 73542FongjhwevejTvsyias 2024 4:39amOctober 2024 4:22rr865 mg/dLBelow low mfrulb798-528IwvnytxlnTrihealth Bethesda [facility] [id number] [address] [place] [address] 68282BzubzryeJvpmsrt 2024 4:39amOctober 2024 5:20iz725.5 ng/mLAbove high .9-336.2FKn[facility] [id number] [address] [facility] 94527Hjqfpzhl I High SensitivityOctober 2024 4:39amOctober 2024 5:44am10 ng/L0-20The Troponin units of report have been changed to meet the Chest Pain Accreditation requirement, element EC5.M1l2. Troponin units are changed from pg/ml to ng/L. Also, the decimal is removed and results are in whole numbers.[facility] [id number] [address] [facility] 50767I-Iatu Natriuretic PeptideOctober 2024 11:25amOctober 2024 2:62et546.0 pg/mLAbove high normal5-100[facility] [id number] [address] [facility] 40994Xechhwkfpxd LevelOctober 2024 4:39amOctober 2024 5:37am89 mg/dLBelow low fapeoz457-044Zuut less than 200 mg/dl low riskChol 201- 239 mg/dl borderline riskChol 240 mg/dl and greater high riskTrihealth Bethesda North Hospital [facility]tr [id number] [address] [facility] 00283UXM CholesterolOctober 2024 4:39amOctober 2024 5:37am 43 mg/uS90-03WCI CHOL ATP-III CLASSIFICATION Cardiovascular RiskHDL > or equal to 60 mg/dL LOWHDL < 40 mg/dL [facility] [id number] [address] [facility] 28127Zmrbehhqftfdu LevelOctober 2024 4:39amOctober 2024 5:37am57 mg/dL0-149TRIG ATP III CLASSIFICATIONTRIG less than 150 mg/dL NormalTRIG 150-199 mg/dL Borderline highTRIG 200-500 mg/dL High TRIG greater than 500 mg/dL Very highStandard traceable to the Center for Disease Conrtrol and Prevention (CDC) test method.[facility] [id number] [address] [facility] 56899JLB Cholesterol, CalculatedOctober 2024 4:39amOctober 2024 5:37am35 mg/dL0-100LDL ATP III CLASSIFICATIONLDL less than 100 mg/dL OptimalLDL 100-129 mg/dL Near or above ykhbskhVTU887-155 mg/dL Borderline highLDL 160-189 mg/dL HighLDL greater than 189 mg/dL Very highTrihealth Bethesda North [facility] [id number] [address] [facility] 63503TLAG CholesterolOctober 2024 4:39amOctober 2024 5:37am11 mg/dLTrihealth Bethesda North Hospital [facility] [id number] [address] [facility] 33711Dfmeqtaprac/HDL RatioOctober 2024 4:39amOctober 2024 5:37am2.1<5.0[facility] [id number] [address] [place] [address] 57296Amnuwko B12 LevelOctober 2024 4:39amOctober 2024 5:35zb685 pg/hJ683-936WvjjcgzybTrihealth Bethesda North [facility] [id number] [address] [facility] 99745McxxdwEdlglen 2024 4:39amOctober 2024 5:03pm9.1 ng/mL >5.9Folate reference range: >5.9 ng/mlThe WHO technical consultation on folate and vitamin t27zmeoyeiqhdue has determined that folate concentrations lessthan 4 ng/ml are considered deficient.[facility] [id number] [address] [facility] 15996Lmwxakym Creatinine Clearance (ChemOctober 2024 7:13am December 17, 2024 8:05am47.08[facility] [id number] [address] [place] [address] 46503Ugkpxnaazc K0vAslqfxr 2024 4:39amOctober 2024 12:30pm 5.5 %4.3-5.6Increased risk for diabetes: 5.7 - 6.4diabetes: >6.4glycemic control for adults with diabetes: <7.0[facility] [id number] [address] [place] [address] 45459Mchssglfm Average GlucoseOctober 2024 4:39amOctober 2024 12:94he980 mg/dLTrihealth Bethesda North [facility] [id number] [address] [place], [place] [address]70Bedside GlucoseOctober 2024 7:59amOctober 2024 8:80ne050 mg/dLRandom Glucose Reference Range is dependent on time and content of last meal. Glucose of more than 200 mg/dL in a nonstressed, ambulatory subject supports the diagnosis of Diabetes Mellitus.Point of Care testingBedside Glucose CommentOctober 2024 7:59amOctober 2024 8:97vdHgp1: cleaned meterPoint of Care testing Microbiology Results Procedure Source Result Collection Date/Time Result Date/Time Result Comment Performing Site Urine Culture Urine, Chou Catheter Klebsiella pneumoniae (ESBL) December 12, 2024 1:19pm December 15, 2024 9:21am [facility] [id number] [address] [place] [address] 15108Ykkfh CultureUrine, Clean-Voided MidstreamCandida albicans December 27, 2024 9:51pmOctober 2024 9:13amTrihealth [facility] [id number] [address] [place] [address] 30930Lukcs CultureUrine, Clean-Voided MidstreamCandida albicans December 30, 2024 4:45pmOctober 2024 8:51amTrihealth [facility] [id number] [address] [place] [address] 06062Mzqhx, Clean-Voided MidstreamAchromobacter xylosoxidansOctober 2024 4:45pmOctober 2024 8:51amTrihealth [facility]hesda [facility] [id number] [address] [place] [address] 64532 Diagnostic Imaging Reports Author Esa Cardoso [facility] HospitalAuthoredAugust 2024 5:19pmReportDictated Date/TimeDictated ByStatusRadiology ReportAugust 2024 5:19pmDigna DavidTrumbull Memorial Hospital [facility] [place] [address] [place] [address] CT Scan Report Signed Patient: Irineo Mendes Jr MR# : [id number] : 1940 Acct:[id number] Age/Sex: 84 / M ADM Date: 5 Loc: CT Room: Type: [facility] Attending Dr: Jovany Stovall MD Copies to: [...] Cardoso M.D. 10/31/2024 5:26 PM Dictation Location: [place] [address] Transcribed By: [facility] 10/31/241725 Dictated By: Esa Cardoso DO 10/31/241718 Signed By: <Electronically signed by Esa Cardoso DO in OV> 10/31/241725 Author Esa Cardoso [facility] HospitalAuthoredAupresbyterian hospitalt 2024 5:26pmReportDictated Date/TimeDictated ByStatusRadiology ReportAugust 2024 5:26pmDigna DavidTrumbull [facility] [place] [address] CT Scan Report Signed Patient: Irineo Mendes Jr MR# : [id number] : 1940 Acct:[id number] Age/Sex: 84 / M ADM Date: 5 Loc: CT Room: Type: [facility] Attending Dr: Jovany Stovall MD Copies to: [...] 5:33 PM Dictation Location: RADIO-PC-20 Transcribed By: [facility] 10/31/24 1733 Dictated By: Esa Cardoso DO 10/31/24 1726 Signed By: <Electronically signed by Esa Cardoso DO in OV> 10/31/24 173 Author Esa Cardoso [facility] HospitalAuthoredAucrownpoint health care facility 2024 5:35pmReportDictated Date/TimeDictated ByStatusRadiology ReportAupresbyterian hospitalt 2024 5:35pmAndreina DavidProvidence Hospital [facility] [place] [address] [place] [address] XRay Report Signed Patient: Irineo Mendes Jr MR# : [id number] : 1940 Acct:[id number] Age/Sex: 84 / M ADM Date: 5 Loc: CT Room: Type: [facility] Attending Dr: Jovany Stovall MD Copies to: [...] 5:40 PM Dictation Location: RADIO-PC-20 Transcribed By: [facility] 10/31/241739 Dictated By: Esa Cardoso DO 10/31/241734 Signed By: <Electronically signed by Esa Cardoso DO in OV> 10/31/24 174 Author Shaquille Mahoney [facility] HospitalAuthoredSeptember 2024 1:23pmReport Dictated Date/TimeDictated ByStatusRadiology ReportSeptember 2024 1:23pm Shaquille Mahoney II [facility] [place] [address] MRI Report Signed Patient: Irineo Mendes Jr MR# : [id number] : 1940 Acct:[id number] Age/Sex: 84 / M ADM Date: 5 Loc: Room: Type: [facility] Attending Dr: Keely Montoya APRN Copies to: [...] Mahoney M.D. 12/04/2024 1:30 PM Dictation Location: RADIO-PC-27 Transcribed By: NOLVIA 12/04/24 1330 Dictated By: Shaquille Mahoney II, MD 12/04/24 1323 Signed By: <Electronically signed by Shaquille Mahoney II, MD in OV> 12/04/24 1330 Author Shaquille Mahoney [facility] HospitalAuthoredPromedica [facility] 2024 1:42pmReportDictated Date/TimeDictated ByStatusRadiology ReportOctober 2024 1:42pmShaquille Mahoney II [facility] [place] [address] [place] [address] XRay Report Signed Patient: Irineo Mendes Jr MR# : [id number] : 1940 Acct:[id number] Age/Sex: 84 / M ADM Date: 5 Loc: ER Room: Type: [facility] ER Attending Dr: Copies to: Sree Thao [...] Mahoney M.D. 12/12/2024 1:46 PM Dictation Location: RADIO-PC-23 Transcribed By: NOLVIA 12/12/24 1346 Dictated By: Shaquille Mahoney II, MD 12/12/24 1342 Signed By: <Electronically signed by Shaquille Mahoney II, MD in [place]> 12/12/24 1346 Author Shaquille Mahoney [facility] 2024 1:46pmReportDictated Date/TimeDictated ByStatusRadiology ReportOctober 2024 1:46pmShaquille Mahoney II [facility] [place] [address] [place] [address] Scan Report Signed Patient: Irineo Mendes Jr MR# : [id number] : 1940 Acct:[id number] Age/Sex: 84 / M ADM Date: 5 Loc: ER Room: Type: [facility] ER Attending Dr: Copies to: Sree Thao DO~ Ordering Provider: Sree Thao DO Date of Service: 12/12/24 CT/CT cervical spine wo con: fall ([id number]) CT/CT head/brain wo con: fall CT head/brain [...] Mahoney M.D. 12/12/2024 1:53 PM Dictation Location: [place] [address] Transcribed By: [facility] 12/12/24 1353 Dictated By: Shaquille Mahoney II, MD 12/12/24 1346 Signed By: <Electronically signed by Shaquille Mahoney II, MD in OV> 12/12/24 1353 Vital Signs Vital Reading Result Reference Range Collection Date/Time Height 66 [in_i] December 04, 2024 7:28urYucckx37.00 kgSept2024 7:52xlBlszag74 [in_i]December 13, 2024 12:56fnPgwoli79.00 kgOctober 2024 4:59amBody Hzovprxopoj84.8 [degF]97.6-99.0Octb[facility] 2024 11:00amHeart Rate95 /tlk03-095 December 18, 2024 1:46pmRespiratory rate20 /pzt94-39Hqssbtd 14th, 2025 1:46pm Oxygen saturation by Pulse haiszapm36 %95-100Oct2024 11:00amBP Zbixicqm606 mm[Hg]100-140December 18, 2024 11:00amBP Jarwjkmwz18 mm[Hg]60-100 December 18, 2024 11:00am Advance Directives Advance Directive Response Recorded Date/ Time Advance Directives No April 05, 2023 3:20pm Insurance Providers Guarantor Irineo Mendes Jr Address [address] [address] Info.Home Phone: Coverage Status Update:2024 Payer Group Member ID Coverage Type Subscriber Relationship to Subscriber Effective Date Expiration Date [place]ta KARTIK/ROSA MARIA Id: [id number] R Houlett , Jr Id: [id number] [address] [address] Home Phone: Email: [email or web address] [id number] R Houlett , Jr Id: [id number] [address] [address] Home Phone: Email: [email or web address] Encounters Encounter Location(s) Arrival/Admit Date Discharge/Departure Date Discharge/Departure Disposition Provider(s) Departed Clinical -CT Scan [facility] October 31, 2024 11:01am October 31, 2024 11:02am Discharged to home care or self care (routine discharge) Jovany Stovall MD Departed Physician/ Provider Office Visit -[facility] Neurosurgery November 06, 2024 9:43am November 06, 2024 10:19am Discharged to home care or self care (routine discharge) Keely Montoya APRN Departed Clinical [facility] November 29, 2024 11:23am November 29, 2024 11:24am Discharged to home care or self care (routine discharge) Keely Montoya APRN Departed Clinical -MRI [facility] December 04, 2024 9:41am December 04, 2024 9:42am Discharged to home care or self care (routine discharge) Keely Montoya APRN Discharged Inpatient -[facility] December 12, 2024 2:39pm December 18, 2024 3:30pm Discharged/[facility] with Sangita Knight MD Non-patient / Non-visit -[facility] O ct2024 9:17pm (Maki) Cirsty Prince NP-CDeparted Referred-[facility] December 27, 2024 9:51pmOctober 2024 9:52pmDischarged to home care or self care (routine discharge)Dolly Shankar-patient / Non-visit- [facility]October 2024 3:54pmDanae Perez DODeparted Referred[facility] 4:45pmOctober 2024 4:46pmDischarged to home care or self care (routine discharge)Danae Perez DO Non-patient / Ktg-tjamt-[facility]October 2024 5:40am Sha Pepe MDNon-patient / Mkb-mwcru-Ubref [facility] 2024 5:19amLatrice Dias-patient / Lew-xzztw-Dsfjd [facility]October 2024 5:42amSha Pepe MDNon-patient / Rcg-uhlji-Uuimx [facility] 2024 5:02amSha Pepe MD Non-patient / Cys-vwaar-Nbisq [facility] 2024 5:24am Sha Pepe MDNon-patient / Ziw-niagm-Hwhgi [facility]November 2024 9:00amDanae Nix MD Recent Diagnosis Onset Date Admit Date Compression fracture of L1 lumbar vertebra Unkno wn November 06, 2024 9:43am Hx of decompressive lumbar laminectomy Unknown November 06, 2024 9:43am Intracranial hemorrhage Unknown 2024 9:43am Radicular low back pain Unknown 2024 9:43am Severe back pain Unknown November 06, 2024 9:43am Falls Unknown December 12 2:39pm Pressure ulcer of coccygeal region, stage 2 Unkn own December 12, 2024 2:39pm Stage III pressure ulcer of right heel Unknown December 12, 2024 2:39pm Atrial fibrillation with RVR Unknown Dec 2:39pm Functional Status Observation Response Date Recorded Dressing Patient is Progressing Toward seline December 18, 2024 2:30pm Eating Patient at Baseline December 2:30pm Bathing Patient is Progressing Toward Ba nhiine December 18, 2024 2:30pm Disability Status Patient at Baseline December 182024 2:30pm Mental Status Observation Response Date Recorded Cognitive Status Patient at Baseline December 2:30pm Cognitive/Mental Status Assessments Assessments Diagnosis Onset Date Resolution Status Admit Date Compression fracture of L1 lumbar verteb ra acuteSept2024 9:43amHx of decompressive lumbar laminectomyacute November 06, 2024 9:43amIntracranial hemorrhageacuteSept2024 9:43am Radicular low back painacuteSept2024 9:43amSevere back painacute November 06, 2024 9:43amFallsacuteOctober 2024 2:39pmPressure ulcer of coccygeal region, stage 2acuteOctober 2024 2:39pmStage III pressure ulcer of right heelacuteOctober 2024 2:39pmAtrial fibrillation with RVRresolved December 12, 2024 2:39pm Plan of Treatment Author Keely Montoya [facility] HospitalAuthoredNovember 06, 2024 9:29amThis patient is an 84-year-old male who is [...] which is why he was [facility] post[facility]. He still has some pain [...] Name Ordered Date Scheduled Date Urine Culture January 25, 2025 9:00am Future Visits Future appointment information is unavailable Future Procedures Procedure Name Ordered Date Scheduled Date Admit Status Order December 12, 2024 1:39pm Octo 2024 1:39pm Discharge Order December 18, 2024 10:08am Octob er 2024 10:08am Urine Culture January 25, 2025 4:28pm Novem 2024 9:00am Future Medications Future medication information is unavailable Patient Instructions Patient instructions are unavailable Goals Acute Goals Author Authored Date Exhibit optimal tissue perfu katarzyna * Exhibits adequate oxygenation and ventilation * Exhibits adequate cardiac output * Regains stable cardiac rhythm * Maintains optimal activity level * Maintains balanced intake and outputDesOhioHealth Grove City Methodist HospitalOctbaptist [facility] 2024 2:48pmSkin integrity intact [facility] HospitalOct[facility] 2024 2:48pmMaintain/increase activity levels * Understands factors that may lead to activity intolerance * Helps perform self care activities * Maintains maximum range of motion * Increase/regain muscle mass and strength * Maintains VS WNL during activity * Maintain intact skin integrity Updated: 3DestMarymount HospitalOctober 2024 2:48pmAbsence of new skin breakdown [facility] HospitalOctober 2024 2:48pmWound healing [facility] HospitalOctbaptist health [facility] 2024 2:48pmFall Prevention estMarymount HospitalOctober 2024 2:48pm Preferences Type Detail Treatment Intervention Code Status: Full Code
[2025-01-26] VITALS (36 sets, daily range): BP systolic 104–158; BP diastolic 60–96; PULSE 68–111; TEMP 36.6–37.1; O2SAT 67–100; BMI 25.1; BMI 23.6
--- NOTE | 2025-01-26 12:04 | ECG_ITS ---
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 Measurements Intervals [place] Rate: 74 P: -98129 CO: -49779 QRS: 179 QRSD: 80 T: 90 QT: 338 QTc: 365 Interpretive Statements 1210 Atrial fibrillation 3233 Anteroseptal myocardial infarction, probably old 5120 Possible right ventricular hypertrophy 9150 abnormal ECG Compared to ECG 12/31/2024 05:42:08 Indeterminate axis no longer present Myocardial infarct finding still present Electronically Signed On 01-27-2025 20:24:51 EST by ROWAN OCHOA M.D.
--- NOTE | 2025-01-26 12:04 | XR_ITS ---
The [address] [address] Patient Name: TAVO WALLIS MRN: [id number] date: 1940 Sex: M Assigned Patient Location: ER Current Patient Location: ER Accession/Order Number: [id number] Exam Date: 01/26/2025 12:40 Report Date: 01/26/2025 13:23 At the request of: TYE CRYSTAL MD Procedure: XR chest 1V Single view chest: CLINICAL HISTORY: ams COMPARISON: Chest 12/30/2024 FINDINGS: Heart and mediastinal structures appear unchanged. Bibasilar pleural parenchymal changes are similar to the prior study no free air. XR/XR chest 1V IMPRESSION: NO SIGNIFICANT CHANGE IN CHEST FINDINGS. Impression dictated by: Nelsy Claros Jr.ODane 01/26/2025 1:23 PM Dictation Location: [place] [address] Electronically authenticated by: [id number] Y Date: 01/26/2025 13:23
--- OUTSIDE RECORDS SUMMARY | 2025-01-26 12:04 | XMS_ITS | Clinical Summary ---
Author Organization [facility] Address [address] [place] [address] Care Team Providers Care Wire Mesh Gate Assembler Name Role Phone Unavailable Primary Care Provider Unavailabl e Allergies Active AllergyReactionsCriticalityNoted DateCommentsPenicillinsMental Status Ggixbo1804/07/2004 Medications MedicationSigDispense QuantityRefillsLast FilledStart DateEnd DateStatus SYNTHROID 150 MCG TABLET Take one(1) tablet daily.Active ALLOPURINOL 300 MG TABLET Take one(1) tablet daily.Active HYTRIN 2 MG CAPSULE Take one(1) capsule daily.Active BUMEX 2 MG TABLET Take one(1) tablet daily.Active CELEBREX 200 MG CAPSULE Take one(1) capsule daily.Active LEXAPRO 5 MG TABLET take one half avazn196Active VICODIN 5/500 TABLET as qmhxdw041Active K-DUR 20 MEQ TABLET SA Take one(1) tablet daily.Active Active Problems No known active problems Family History Medical HistoryRelationCommentsAlzheimer's DiseaseMotherCoronary Artery Disease MotherHad CABG when she was olderThyroidSisterHypothyroidismobesitySister RelationStatusCommentsMotherSister Social History Tobacco UseTypesPacks/DayYears UsedDateSmoking Tobacco: VvtwcdSmqbemgpkx450 04/07/1964 - 04/07/1994 Comments:Started in High janey o[place] Alcohol UseStandard Drinks/WeekCommentsYes0 (1 standard drink = 0.6 oz pure alcohol)A few beers every daySex and Gender InformationValueDate RecordedSex Assigned at BirthNot on fileLegal JqnZwtw92/02/2012 10:06 AM ESTGender Identity Not on fileSexual OrientationNot on fileOccupationIndustryJob Start DateJob End DateNot on fileNot on fileNot on fileNot on file Last Filed Vital Signs Vital SignReadingTime TakenCommentsBlood Afiplzxb592/85006/28/2024 10:50 AM EDT Ghdur8247 10:50 AM HSSHxcdqaghywz76.9 ??C (98.5 ??F)06/28/2024 10:50 AM EDTRespiratory Oder848106/28/2024 10:50 AM EDTOxygen Aowwawsbyh29%06/28/2024 10:50 AM EDTInhaled Oxygen Concentration--Dernam483.2 kg (276 lb)04/07/2004 3:44 PM ESTHeight--Body Mass Index-- Plan of Treatment Health MaintenanceDue DateLast DoneCommentsAnxiety Exdjhqxtt27/11/1960Depression Ubijdcneb50/11/1960DTaP,Tdap,Td Vaccine (1 - Tdap)1Diabetes Screening 1986Pneumococcal Vaccine: 50+ (1 of 1 - PCV)07/16/1991Shingrix Vaccine (1 of 2)07/16/1991RSV Vaccine (1 - 1-dose 75+ series)2016Advance Directive Lcfedrqzgy69/01/2025ovid-19 Vaccine (1 - 2024- season)2024Influenza Vaccine (#1)2024 Insurance
--- NOTE | 2025-01-26 12:05 | CT_ITS ---
The [address] [address] Patient Name: TAVO WALLIS MRN: [id number] date: 1940 Sex: M Assigned Patient Location: ER Current Patient Location: ER Accession/Order Number: [id number] Exam Date: 01/26/2025 12:40 Report Date: 01/26/2025 13:22 At the request of: TYE CRYSTAL MD Procedure: CT head/brain wo con CT BRAIN WITHOUT CONTRAST: CLINICAL HISTORY: ams COMPARISON: CT brain 12/30/2024 TECHNIQUE: Contiguous axial unenhanced images were obtained through the brain. This CT exam was performed using one or more following dose reduction techniques: Automated exposure control, adjustment of the mA and/or kV according to patient size, or use of iterative reconstruction technique. FINDINGS: There is no evidence of midline shift, intra or extra-axial fluid collection, hemorrhage or CT evidence of stroke. Cortical atrophy with chronic microvascular ischemic changes grossly similar to the prior study. Posterior fossa appears unremarkable. Visualized intraorbital contents demonstrate no acute findings. Visualized paranasal sinuses are clear. The surrounding soft tissues are normal. CT/CT head/brain wo con IMPRESSION: NO ACUTE INTRACRANIAL ABNORMALITY. Impression dictated by: Ortega Groves Jr., D.O. 01/26/2025 1:22 PM Dictation Location: [place] [address] Electronically authenticated by: [id number] Y Date: 01/26/2025 13:22
--- OUTSIDE RECORDS SUMMARY | 2025-01-26 12:05 | XMS_ITS | Patient Health Record ---
Author Organization [facility] Address [facility] [place] [address] Care Team Providers Care Gas Processing Plant Operator Name Role Phone Pawel Echavarria Unavailable [phone] Mendy Bull Unavailable Unavailable Allergies Allergen (clinical [...] rosis of arteries of lower limbs (disorder) (13297124233333743) Unspecified atherosclerosis of [place] arteries of extremities, bilateral legs (I70.203) ActiveconfirmedProblemAcquired hammer toe of right foot (3130256016276228)Other hammer toe(s) (acquired), right foot (M20.41)ActiveconfirmedProblemAcquired hammer toe of left foot ([id number])Other hammer toe(s) (acquired), left foot (M20.42)Activeconfirmed Plan Of Treatment No Information Insurance Providers Payer Name Payer Address Payer Phone Subscriber Number Group Number Insured Name Patient Relationship to Insured Coverage Start Date Coverage End Date Medicare Part B J-15 Part [facility] Claims [address] [place] [address] [id number], WilliamSelf - patient is the insuredUniversity [facility] and [facility] HealthPO [address] [place], [place] [id number], WilliamSelf - patient is the insured Medical (General) History Medical History History ICD Code hypertension hyperlidemiaatrial fibrillationoveractive bladderlumbar spondylosisheart murmur stomach ulcerspoor circulationthyroid diseaseskin conditionsSurgical History Surgery Date(Month/Year)
--- OUTSIDE RECORDS SUMMARY | 2025-01-26 12:05 | XMS_ITS | Clinical Summary ---
Author Organization [facility] Address [address] [place] [address] Care Team Providers Care Cnc Manager Name Role Phone Unavailable Primary Care Provider Unavailabl e Encounters DateTypeDepartmentCare FnycJnfyhbjcfhq53/21/2025linisync Result Encounter [facility] External Department Unsolicited Mendy Bull MD 01/24/2025bstract [facility] [address] [place] [id number] Unallocated, Noms ProviderMD from Last 3 Months Social History Tobacco UseTypesPacks/DayYears UsedDateSmoking Tobacco: Never AssessedSex and Gender InformationValueDate RecordedSex Assigned at BirthNot on fileLegal Sex Male05/19/2022 6:54 PM EDTGender IdentityNot on fileSexual OrientationNot on file Plan of Treatment Not on file Procedures Procedure NamePriorityDate/TimeAssociated DiagnosisCommentsURINE [facility] Pwchqhs3201/25/2025 9:00 AM ESTTBH UA (CLEAN/CATCH) DIGITAL PUBLISHING SPECIALIST/MICRO IF IND.Routine 01/25/2025 9:00 AM EST from Last 3 Months Results * (ABNORMAL) TBH UA (CLEAN/CATCH) DIGITAL PUBLISHING SPECIALIST/MICRO IF IND. (01/25/2025 9:00 AM EST) ComponentValueRef RangeTest MethodAnalysis TimePerformed AtPathologist SignatureCOLOR URINELT. YELLOWYELLOWTBHCLARITY URINECLEARCLEARTBHSPECIFIC GRAVITY URINE1.0101.005 - 1.025TBHPH URINE7.55.0 - 9.0TBHPROTEIN URINE30(A) NEG/TRACE mg/dLTBHGLUCOSE URINE UANEGATIVENEGATIVE mg/dLTBHBILIRUBIN URINE NEGATIVENEGATIVETBHKETONES URINENEGATIVENEGATIVE mg/dLTBHBLOOD URINESMALL(A) NEGATIVETBHNITRITE URINEPOSITIVE(A)NEGATIVETBHUROBILINOGEN URINE0.20.2 - 1.0 EU/dLTBHLEUKOCYTE ESTERASE URINEMODERATE(A)NEGATIVETBHURINE MICROSCOPIC INDICATEDYESTBHSpecimen (Source)Anatomical Location / LateralityCollection Method / VolumeCollection TimeReceived Time01/25/2025 9:00 AM EST01/25/2025 10:31 AM EST Narrative [facility] - 01/25/2025 1:23 PM EST Authorizing ProviderResult TypeResult StatusRugen M Henderson MDCLINISYNCFinal Result Performing OrganizationAddressCity/State/ZIP CodePhone Number [facility] from Last 3 Months Insurance
--- OUTSIDE RECORDS SUMMARY | 2025-01-26 12:06 | XMS_ITS | Clinical Summary ---
Author Organization [facility] Address [facility] [address] [place] [address] Care Team Providers Care Rock Lather Name Role Phone TjcatieEdmondan Louis HARGROVE Primary Care Provider [phone] Allergies Active AllergyReactionsCriticalityNoted AjmsMawdlgllAnrclzxo82/20/2021Fentanyl 09/02/20179672Tqulwxzuwgmr26/29/4833Msmnpkndvcv71/01/2005 Other reaction(s): Mental Status Change Medications MedicationSigDispense [...] MOUTH ONCE EVERY MORNING ON AN EMPTY JUVVPBS081Active magnesium oxide (MAG-OX) 400 mg tablet Take [...] DateBenign prostatic hyperplasia (BPH) with urinary urge /07/2019 Overview (05/18/2022): urolift 12/21 (Ameena) Was using [...] standard drink = 0.6 oz pure alcohol)ChildcareAnswerDate FpjgpwfiYifzqddnqUobtlvm53/04/2019EmploymentAnswer Date YompffuoJormhlmrolXqxzyvc01/04/2019Hunger ScreeningAnswerDate Recorded Within the past 12 months we worried whether our food would run out before we got money to buy more.Never True05/18/2022Within the past 12 months the food we bought just didn't last and we didn't have money to get more.Never True 05/18/2022urpose - LifeAnswerDate RecordedPurpose and direction in lifeUnknown 03/31/2020ex and Gender InformationValueDate RecordedSex Assigned at BirthNot on fileLegal PebQkhf9310/08/2014 8:36 PM EDTGender IdentityNot on fileSexual OrientationNot on file Last Filed Vital Signs Vital SignReadingTime TakenCommentsBlood Zefwxoro183/7905/18/2022 11:26 AM EDT Ltlii827405/18/2022 11:26 AM EDTTemperature--Respiratory Ficn480905/18/2022 11:26 AM EDTOxygen Saturation--Inhaled Oxygen Concentration--Mzuwpt06.6 kg (180 lb) 05/18/2022 11:26 AM JLCSgbbeb546.6 cm (5' 6 )05/18/2022 11:26 AM EDTBody Mass Index29.05005/18/2022 11:26 AM EDT Plan of Treatment Health MaintenanceDue DateLast DoneCommentsDepression Tzckuybht42/11/1954Tobacco Bqweowqzm62/11/1954DTaP,Tdap and Td Vaccines (1 - Tdap)1960Zoster (Shingles) Vaccine (1 of 2)07/16/1991Fall Risk Petyeecjr01/11/2007RSV ( or age 60+ yrs) (1 - 1-dose 75+ series)2016COVID-19 Vaccine (2024- season)/, 02/18/2021, 05/28/2020, Additional history exists Influenza Cwzsqpj77/, 12/22/2019, 12/06/2019, Additional history exists Medical Devices Not on file Insurance Care Teams Team MemberRelationshipSpecialtyStart DateEnd Date Feliciano Ambrosio DO PCP - GeneralFamily Medicine06/05/18
--- OUTSIDE RECORDS SUMMARY | 2025-01-26 12:06 | XMS_ITS | Clinical Summary ---
Author Organization [facility] Address [address], [address] [place] [address] Care Team Providers Care Photography Professor Name Role Phone Feliciano Ambrosio DO Primary Care Provider [phone] Allergies Active AllergyReactionsCriticalityNoted TylqHpxgwbooAmlcjhwlEkn25/29/2018 Can't remember goofy BdeafaifxemuVqt62/29/2018 Can't remember goofy and agitated KuhxdrbcmgsQxg28/29/2018 As child ZolpidemOther (See Comments)Low09/23/2020 Can't remember [...] Safety Domain Source: IP Abuse ScreeningAnswerDate RecordedPhysical caiixVoazby79/17/2024Verbal abuseDenies 02/21/2024Emotional cjvpyGtgauh53/17/2024Financial ldredYqgdkr86/17/2024Sexual gigsgCdvckp63/17/2024Sex and Gender InformationValueDate RecordedSex Assigned at BirthNot on fileLegal HjkIxws9004/16/2012 8:10 PM ESTGender IdentityNot on file Sexual OrientationNot on file Last Filed Vital Signs Vital SignReadingTime TakenCommentsBlood Dxklqjnt573/7302/27/2024 10:46 AM EST Ydalv361702/27/2024 10:46 AM GUTAdtwvktoxbz65.7 ??C (98 ??F)02/27/2024 10:46 AM ESTRespiratory Niyb094204/29/2023 10:46 AM ESTOxygen Einhdfjfgt42%02/27/2024 10:46 AM ESTInhaled Oxygen Concentration--Vvjpvv01.3 kg (190 lb 3.2 oz)02/21/2024 7:45 AM JFKSkbzww384.6 cm (5' 6 )02/21/2024 7:45 AM ESTBody Mass Index30.7104/23/2023 7:45 AM EST Plan of Treatment Health MaintenanceDue DateLast VngjWhmlpwbhTvhsru90/11/1952Depression Screen 4DTaP/Tdap/Td vaccine (1 - Tdap)1Shingles vaccine [...] Mendes TypeRelation to PatientDate of BirthPhone Billing AddressPersonal/MefnpjSrvc10/11/1941 [address] [place] [address] * Guarantor: Krista Mendes TypeRelation to PatientDate of BirthPhone Billing AddressPersonal/HxwnlfCsyr24/11/1941 [address] [place] [address] Advance Directives * Full Code (Latest Code Status on File) Date ActivatedDate GwtoftnlzmhGzmeyupq75/17/2024 7:35 AM02/27/2024 3:35 PM Care Teams Team MemberRelationshipSpecialtyStart DateEnd Date Feliciano Ambrosio DO PCP - GeneralFabenjamin [facility] Medicine07/22/17
--- OUTSIDE RECORDS SUMMARY | 2025-01-26 12:06 | XMS_ITS | Clinical Summary ---
Author Organization [facility] Address [address] [place] [address] Phone Care Team Providers Care Dispatcher Refinery Name Role Phone Feliciano Ambrosio Louis HARGROVE Primary Care Provider [phone] Allergies Active AllergyReactionsCriticalityNoted DateCommentsFentanylDizziness,Nausea Only02/16/20234668NglgqjbgbzgvOmsdy18/13/5704KqtpokewdugYrgpe44/13/2023Zolpidem Oeykeml8602/16/2023 Medications MedicationSigDispense QuantityRefillsLast FilledStart DateEnd DateStatus acetaminophen [...] current use of anticoagulant therapy 02/16/2024MI 30.0-30.9,adult02/16/2024Former eyoust8002/16/2024hronic atrial zuxywzbshtdx48/13/2023Echocardiogram pqfojmub72/13/2212Rkhwx82/13/2023rimary tdxjsxvumwzx11/13/2023Heart failure, NYHA class 212/Hyperlipemia 02/16/2023Mild CAD02/16/2023 Resolved Problems ProblemNoted DateDiagnosed DateResolved DateNon-ischemic cardiomyopathy Encounters DateTypeDepartmentCare LgmaLfqfjfcdhlm10/09/2025Scanned Document [facility] [address] [place] [address] Scanning, Generic Provider 11/23/2024Refill [facility] [address] [address] Irineo Mcintyre, Chronic atrial fibrillation (Multi); Essential hypertension, benign; Non-ischemic cardiomyopathy (Multi)from Last 3 Months Immunizations ImmunizationAdministration DatesNext DueInfluenza, Gwsiaknqijn77/01/2019, 11/05/2017,04/07/2016Pneumococcal conjugate vaccine, 13-valent (PREVNAR 13) 04/07/2016 Family History Medical HistoryRelationNameCommentsNo Known ProblemsMotherRelationNameStatus CommentsMother Social History Tobacco UseTypesPacks/DayYears UsedDateSmoking Tobacco: FormerCigarettesQuit: 1980Smokeless Tobacco: Never Tobacco Cessation:Counseling Given: Yes Alcohol UseStandard Drinks/WeekCommentsYes3 (1 standard drink = 0.6 oz pure alcohol)Sex and Gender InformationValueDate RecordedSex Assigned at BirthNot on fileLegal FhtQvcz71/26/2022 2:53 PM ESTGender IdentityNot on fileSexual OrientationNot on file Last Filed Vital Signs Vital SignReadingTime TakenCommentsBlood Vpxzqnst112/8602/16/2024 3:20 PM EST Njcnp99617/12/2024 3:20 PM ESTTemperature--Respiratory Rate--Oxygen Saturation-- Inhaled Oxygen Concentration--Hnezud85.6 kg (191 lb)02/16/2024 3:20 PM ESTHeight 167.6 cm (5' 6 )02/16/2024 3:20 PM ESTBody Mass Index30.8302/16/2024 3:20 PM EST Plan of Treatment DateTypeDepartmentCare Team (Latest Contact Info)Ixoheiucdex25/09/2025 10:00 AM ESTOffice Visit [facility] [address] [address] Enedelia Gomez, COMMUNITY WORKER-[facility] [address] [facility] [address] [place] [address] Health MaintenanceDue DateLast DoneCommentsCreatinine Level1941Lipid Panel 1941Medicare Annual Wellness Visit (AWV)2Potassium Level 1941TSH Level2Diabetes Mqczdjlla66/11/1960DTaP/Tdap/Td Vaccines (1 - Tdap)07/16/1963Zoster Vaccines (1 of 2)07/16/1991Pneumococcal Vaccine (2 of 2 - PPSV23, PCV20, or PCV21)RSV High Risk: (Elderly (60+) or Population) (1 - 1-dose 75+ series)2016Influenza Vaccine (#1) 510/, 12/24/2021, 12/22/2019, Additional history existsCOVID-19 Vaccine ( season)510/, 02/18/2021, 05/28/2020, Additional history mwnapgGbixofyazspmyb00/09/202610/11/2024, 02/23/2024, 01/10/2022, Additional history existsHIB VaccinesAged OutNo [...] DateEnd Date Feliciano Ambrosio DO PCP - Fmtfsyj14/1/21
--- OUTSIDE RECORDS SUMMARY | 2025-01-26 12:06 | XMS_ITS | Encounter Summary ---
Author Organization [facility] Address [address] [place] [address] Care Team Providers Care Veneer Puller Name Role Phone Unavailable Primary Care Provider Unavailabl e Encounter Details DateTypeDepartmentCare Team (Latest Contact Info)Gwrpmvfhird27/21/2025linisync Result Encounter [facility] External Department Unsolicited Mendy Bull MD [address] [facility] [address] [place] [address] Social History Tobacco UseTypesPacks/DayYears UsedDateSmoking Tobacco: Never AssessedSex and Gender InformationValueDate RecordedSex Assigned at BirthNot on fileLegal Sex Male05/19/2022 6:54 PM EDTGender IdentityNot on fileSexual OrientationNot on filedocumented as of this encounter Plan of Treatment NameTypePriorityAssociated DiagnosesDate/TimeURINE [facility] [place] 01/25/2025 9:00 AM ESTdocumented as of this encounter Procedures Procedure NamePriorityDate/TimeAssociated DiagnosisCommentsURINE [facility] [place] Xjfplro4101/25/2025 9:00 AM ESTTBH UA (CLEAN/CATCH) SCREEN PRINTING LOADER UNLOADER/MICRO IF IND.Routine 01/25/2025 9:00 AM EST documented in this encounter Results * (ABNORMAL) [facility]H UA (CLEAN/CATCH) SCREEN PRINTING LOADER UNLOADER/MICRO IF IND. (01/25/2025 9:00 AM EST) ComponentValueRef [...] 01/25/2025 1:23 PM EST Authorizing ProviderResult TypeResult StatusMendy Bull MDCLINISYNCFinal Result Performing OrganizationAddressCity/State/ZIP CodePhone Number CLINISYNC TB documented in this encounter Visit Diagnoses Not on filedocumented in this encounter
--- OUTSIDE RECORDS SUMMARY | 2025-01-26 12:06 | XMS_ITS | Continuity of Care Document ---
Author Organization [facility] Address [address] [place], [place] [address] Insurance Providers Payer Plan Claims Address Claims Phone Policy Number Group Number Relation Employer Guarantor Name Guarantor Guarantor Address Guarantor Phone [facility] [address], [place], [place] [id number] Linda Slaterborisroel, Kellie [place], [place] [address] [address], [place], [place] [address]fgy:[phone] [id number] Jadynroel, Nelli [place]urer [place], [place] [address] [address] [address], [place], [place] [id number] Irineo Randell, [place] [address] Problems Condition ICD9 code ICD10 code SNOMED code Start Date End Date S tatus Encephalopathy, unspecified G93.4015ActiveObstructive and reflux uropathy, vwgwerqvqmnE25.9 5ActiveBenign prostatic hyperplasia with lower urinary tract symptoms N40.1105ActiveAcute kidney failure, dcrexcxxfxpR07.915Active Cellulitis of right lower limbL03.213995ActiveUrinary tract infection, site not hkwyujhgqT68.0105ActivePressure ulcer of right heel, stage 2 L89.475645ActiveBenign neoplasm of spinal bvglybjzY76.1105Active Anemia, znxqnfptceaO41.910/29/2025ActivePure hypercholesterolemia, unspecified E78.0010tiveInsomnia, vdctqeajnbfJ66.001tiveSleep apnea, byyjymiofpeX43.3010tiveHypothyroidism, stnkiltpwgwM42.91 ActiveTinnitus, unspecified earH93.191tiveUnspecified rfnqjpwmO99.9 10tiveLongstanding persistent atrial pvqfvnxuwzfjU23.1110 ActiveCardiomyopathy, khwgcwkvfwqA68.91tivePeripheral vascular disease, yijvhcougnhX59.91tivePleural effusion, not elsewhere hesqgqoqdiD8982tiveDiverticulum of esophagus, gygfxgtvG79.510 ActiveGastric ulcer, unspecified as acute or chronic, without hemorrhage or jiwpzyhnueoI91.91tiveAcute on chronic diastolic (congestive) heart czjeenrO64.3310tiveGout, goiucdkvuewK68.91tiveLow back pain, saxsushdtmrG09.5010tiveUnspecified osteoarthritis, unspecified siteM19.9010tiveSynovial cyst of popliteal space [Wayne], unspecified kneeM71.tiveChronic kidney disease, aqzoamorybeV85.91 ActiveAltered mental status, zcmbobtttehN94.8210tivePresence of unspecified artificial hip ypkjhY60.11954tiveRheumatoid arthritis with rheumatoid factor of multiple sites without organ or systems udobtzdishrU09.79 01/04/2025tiveOther specified postprocedural erelnrT78.36298tive Chronic peptic ulcer, site unspecified, without hemorrhage or rfohanurkurX22.7 01/04/2025tiveFoot drop, left footM21.79999tiveSpinal stenosis, lumbar region with neurogenic zhcottpdcvdsW07.48726tiveOther intervertebral disc degeneration, lumbar region with discogenic back pain and lower djoavftrhseyoW69.200865ActiveAge-related osteoporosis without current pathological tdcqurpnA42.0105ActiveUnspecified kyphosis, site jsyuiivjcacV56.976825ActiveRetention of urine, fvyfydqrdmsE51.91 ActivePersonal history of other diseases of the circulatory lgxaauH03.79 01/04/2025tiveWedge compression fracture of first lumbar vertebra, subsequent encounter for fracture with qnawcpdfsmydltN14.010D095ActiveShortness of vquvvqP73.0215277VlabnyQwquvydfsnoL45.610tiveNutritional deficiency, oulfxjtldvoE51.91tiveMuscle weakness (generalized)M62.81 01/05/2025tiveCandidiasis of skin and nailB37.tiveDifficulty in walking, not elsewhere kehgovrvenE19.211tiveDysphagia, unspecified R13.1011tiveOther speech gnsojkzgjnvfC45.8901/07/2025tiveMethicillin resistant Staphylococcus aureus infection, unspecified siteA49.021 ActiveHypo-osmolality and wtnxvgnojcyxM61.1115Active Results Test Result Date/Time Value / Unit Interp. Refere nce Range Tuberculosis reaction wheal[ 43188-6] Tuberculosis reaction wheal [73454-5] 01/16/2025 05:00 PM 0 mm NEG Tuberculosis reaction wheal[09123-5]?Tuberculosis reaction wheal [52734-4]01/16/2025 05:00 PMSee noteTB testTuberculosis reaction wheal[54204-5]?Tuberculosis reaction wheal [28560-1]01/04/2025 10:46 AM 0 mmNEG Allergies, adverse reactions, alerts Substance Reaction Date Status Type No allergies have been recorded Non KnfnKfmwbb63/31/2025Non Pqcdcucoulvh86/31/2025Non VhbtOlochyv96/31/2025Non DrugPenicillins (PCN)01/04/2025Non Drug Immunizations Vaccine Route Date [...] d15103/10/2024Peripheral vascular disease, unspecifiedActiveZosyn in dextrose (iso-osm) (uagzvclinntp-kmvbvlamhy-bhiycp) 3.375 gram/50 mL piggyback (Zosyn in dextrose (iso-osm) (gbywrughiidu-znbxqxcmld-gpooox))3.375 gram, intravenous, Three Times A Dayintravenous1.08.0 h1511/07/2024Urinary [...] Day, constipationoral1.0 1.0 d15ActiveZosyn in dextrose (iso-osm) (ypakrhscixki-wbupkynspw-tfpcxn) 3.375 gram/50 mL piggyback (Zosyn in dextrose (iso-osm) (dmtixluvjwmu-zollwmhmtt-sgcqaf))3.375 gram, intravenous, Three Times A Dayintravenous1.08.0 h1/5Cellulitis of right lower limbActive Normal Saline Flush (sodium chloride 0.9 % (flush)) - syringe (Normal Saline Flush (sodium chloride0.9 % (flush)))10mL, injection, Flush before and after IV medication, flush with 10 mL NS prior to medication administration and 10mL NS after medication is complete1.08.0 h1511/5ActiveZosyn in dextrose (iso-osm) (vpswgjzogjvs-djgubagmer-wnqjen) 3.375 gram/50 mL piggyback (Zosyn in dextrose (iso-osm) (lzvsnmvtvihx-tqjeimgicx-jmbaxe))3.375 gram, intravenous, Three Times A Dayintravenous1.08.0 h1/20240307/5Cellulitis of right lower limbActiveZosyn in dextrose (iso-osm) (pxjdlvsoghow-kjkznqsyse-tstgcn) 3.375 gram/50 mL piggyback (Zosyn in dextrose (iso-osm) (ybvruudkvwqy-tlpkewuirq-abqmxc))3.375 gram, intravenous, Three Times A Day intravenous1.08.0 h103/08/183296/5Cellulitis of right lower limbActiveZosyn in dextrose (iso-osm) (cszwghkgrtqc-tvxjujgigx-kjfuhh) 3.375 gram/50 mL piggyback (Zosyn in dextrose (iso-osm) (qyrewzcjumbi-uveeelbyxf-lhyxbj))3.375 gram, intravenous, Three Times A Dayintravenous1.08.0 h103/08/163885/08/2024 Cellulitis of right lower limbActivefluconazole 200 mg tablet (fluconazole)1 tab, oral, Once A Dayoral1.01.0 d1511/5Candidiasis of skin and nailActiveZyvox (linezolid) 600 mg tablet (Zyvox (linezolid))1 tab, oral, Twice A Day, MRSA rt. heeloral1.012.0 h103/09/096285/5Activediltiazem HCl 120 mg capsule,extended release 12 hr [...] discogenic back pain and lower extremitypainActiveFluzone High-Dose (PF) (flu vacc fu5128- 26(65yr up)-pf) 180 mcg/0.5 mL syringe (Fluzone High-Dose (PF) (flu vacc nc7510-31(65yr up)-pf))0.5ml, intramuscular, Once - One Timeintramuscular1.0 515ActiveMacrobid (nitrofurantoin monohyd/m-cryst) 100 mg capsule (Macrobid (nitrofurantoin monohyd/m-cryst))100 mg, oral, Twice A Dayoral 1.012.0 h1Urinary tract infection, site not specifiedActive Vital Signs Date Vital Result Comment 01/04/2025 04:37 PM Temperature (8310-5) 98.3 [degF] Oxygen Saturation (59745-7)96 %Respiratory Rate (9279-1)18 /minHeart Rate (8867-4)64 /minBlood Pressure Systolic (8480-6)128 mm[Hg]Blood Pressure Diastolic (8462-4)72 mm[Hg]01/04/2025 03:43 PMTemperature (8310-5)97.9 [degF] Oxygen Saturation (46041-3)98 %Respiratory Rate (9279-1)16 /minHeart Rate (8867-4)78 /minBlood Pressure Systolic (8480-6)110 mm[Hg]Blood Pressure Diastolic (8462-4)54 mm[Hg]Body Height (8302-2)67 [in_us]01/05/2025 08:57 AM Temperature (8310-5)98.1 [degF]Oxygen Saturation (72197-3)98 %Respiratory Rate (9279-1)16 /minHeart Rate (8867-4)89 /minBlood Pressure Systolic (8480-6)133 mm[Hg]Blood Pressure Diastolic (8462-4)69 mm[Hg]01/05/2025 10:27 AMTemperature (8310-5)98.9 [degF]Oxygen Saturation (46061-4)97 %Respiratory Rate (9279-1)18 /minHeart Rate (8867-4)78 /minBlood Pressure Systolic (8480-6)126 mm[Hg]Blood Pressure Diastolic (8462-4)76 mm[Hg]01/05/2025 10:05 PMTemperature (8310-5)97.9 [degF]Oxygen Saturation (64448-6)97 %Respiratory Rate (9279-1)18 /minHeart Rate (8867-4)74 /minBlood Pressure Systolic (8480-6)138 mm[Hg]Blood Pressure Diastolic (8462-4)78 mm[Hg]01/06/2025 01:05 PMTemperature (8310-5)98.6 [degF] Oxygen Saturation (70596-8)95 %Respiratory Rate (9279-1)18 /minHeart Rate (8867-4)68 /minBlood Pressure Systolic (8480-6)132 mm[Hg]Blood Pressure Diastolic (8462-4)78 mm[Hg]01/06/2025 11:20 PMTemperature (8310-5)98.1 [degF] Oxygen Saturation (38854-1)95 %Respiratory Rate (9279-1)18 /minHeart Rate (8867-4)70 /minBlood Pressure Systolic (8480-6)140 mm[Hg]Blood Pressure Diastolic (8462-4)79 mm[Hg]01/07/2025 11:30 AMTemperature (8310-5)98 [degF] Oxygen Saturation (78029-9)95 %Respiratory Rate (9279-1)18 /minHeart Rate (8867-4)82 /minBlood Pressure Systolic (8480-6)115 mm[Hg]Blood Pressure Diastolic (8462-4)61 mm[Hg]01/07/2025 11:09 AMBody Weight (92987-7)186.2 [lb_av] Body Mass Index (70853-8)29.16 kg/m201/08/2025 01:29 AMTemperature (8310-5)98 [degF]Oxygen Saturation (27414-7)95 %Respiratory Rate (9279-1)18 /minHeart Rate (8867-4)75 /minBlood Pressure Systolic (8480-6)123 mm[Hg]Blood Pressure Diastolic (8462-4)62 mm[Hg]01/08/2025 05:35 AMTemperature (8310-5)98 [degF] Respiratory Rate (9279-1)18 /minHeart Rate (8867-4)74 /minBlood Pressure Systolic (8480-6)155 mm[Hg]Blood Pressure Diastolic (8462-4)80 mm[Hg]01/08/2025 09:32 AMBlood Pressure Systolic (8480-6)136 mm[Hg]Blood Pressure Diastolic (8462-4)83 mm[Hg]01/08/2025 09:27 AMTemperature (8310-5)98.5 [degF]Oxygen Saturation (12076-0)94 %Respiratory Rate (9279-1)18 /minHeart Rate (8867-4)84 /min01/08/2025 12:09 PMTemperature (8310-5)98.5 [degF]Oxygen Saturation (40563-2)94 %Respiratory Rate (9279-1)18 /minHeart Rate (67-4)84 /minBlood Pressure Systolic (8480-6)136 mm[Hg]Blood Pressure Diastolic (8462-4)83 mm[Hg] 01/09/2025 10:30 AMTemperature (8310-5)98 [degF]Oxygen Saturation (27564-1)96 % Respiratory Rate (9279-1)18 /minHeart Rate (8867-4)66 /minBlood Pressure Systolic (8480-6)116 mm[Hg]Blood Pressure Diastolic (8462-4)53 mm[Hg]01/10/2025 10:35 AMTemperature (8310-5)98.2 [degF]Oxygen Saturation (49228-1)95 % Respiratory Rate (9279-1)18 /minHeart Rate (8866-4)63 /minBlood Pressure Systolic (8480-6)104 mm[Hg]Blood Pressure Diastolic (8462-4)53 mm[Hg]01/11/2025 09:41 AMTemperature (8310-5)98.3 [degF]Oxygen Saturation (83178-6)97 % Respiratory Rate (9279-1)18 /minHeart Rate (8867-4)75 /minBlood Pressure Systolic (8480-6)144 mm[Hg]Blood Pressure Diastolic (8462-4)76 mm[Hg]01/12/2025 10:19 AMTemperature (8310-5)98.2 [degF]Oxygen Saturation (21578-7)96 % Respiratory Rate (9279-1)16 /minHeart Rate (8867-4)68 /minBlood Pressure Systolic (8480-6)128 mm[Hg]Blood Pressure Diastolic (8462-4)62 mm[Hg]01/12/2025 12:08 PMTemperature (8310-5)98.2 [degF]Oxygen Saturation (70979-0)96 % Respiratory Rate (9279-1)16 /minHeart Rate (8867-4)68 /minBlood Pressure Systolic (8480-6)128 mm[Hg]Blood Pressure Diastolic (8462-4)62 mm[Hg]01/13/2025 09:41 AMTemperature (8310-5)98 [degF]Oxygen Saturation (50107-9)95 %Respiratory Rate (9279-1)18 /minHeart Rate (8867-4)76 /minBlood Pressure Systolic (8480-6) 110 mm[Hg]Blood Pressure Diastolic (8462-4)71 mm[Hg]01/13/2025 12:06 PM Temperature (8310-5)98 [degF]Oxygen Saturation (65610-7)95 %Respiratory Rate (9279-1)18 /minHeart Rate (8867-4)76 /minBlood Pressure Systolic (8480-6)110 mm[Hg]Blood Pressure Diastolic (8462-4)71 mm[Hg]01/14/2025 09:35 AMTemperature (8310-5)98.2 [degF]Oxygen Saturation (52893-4)93 %Respiratory Rate (9279-1)18 /minHeart Rate (8867-4)74 /minBlood Pressure Systolic (8480-6)137 mm[Hg]Blood Pressure Diastolic (8462-4)63 mm[Hg]01/15/2025 09:35 AMTemperature (8310-5)98.4 [degF]Oxygen Saturation (01545-1)96 %Respiratory Rate (9279-1)18 /minHeart Rate (8867-4)77 /minBlood Pressure Systolic (8480-6)142 mm[Hg]Blood Pressure Diastolic (8462-4)80 mm[Hg]01/15/2025 09:09 PMBody Weight (08659-6)169.8 [lb_av] Body Mass Index (09544-0)26.59 kg/m201/16/2025 11:13 AMTemperature (8310-5)98.1 [degF]Oxygen Saturation (93073-7)96 %Respiratory Rate (9279-1)18 /minHeart Rate (8867-4)77 /minBlood Pressure Systolic (8480-6)138 mm[Hg]Blood Pressure Diastolic (8462-4)75 mm[Hg]01/17/2025 10:42 AMTemperature (8310-5)98.5 [degF] Oxygen Saturation (05771-9)95 %Respiratory Rate (9279-1)16 /minHeart Rate (8867-4)73 /minBlood Pressure Systolic (8480-6)140 mm[Hg]Blood Pressure Diastolic (8462-4)64 mm[Hg]01/17/2025 12:01 PMTemperature (8310-5)98.5 [degF] Oxygen Saturation (47110-0)95 %Respiratory Rate (9279-1)16 /minHeart Rate (8867-4)73 /minBlood Pressure Systolic (8480-6)140 mm[Hg]Blood Pressure Diastolic (8462-4)64 mm[Hg]01/18/2025 10:59 AMTemperature (8310-5)97.7 [degF] Oxygen Saturation (37019-0)96 %Respiratory Rate (9279-1)18 /minHeart Rate (67-4)70 /minBlood Pressure Systolic (8480-6)107 mm[Hg]Blood Pressure Diastolic (8462-4)59 mm[Hg]01/19/2025 09:21 AMTemperature (8310-5)98 [degF] Oxygen Saturation (85514-3)97 %Respiratory Rate (9279-1)18 /minHeart Rate (8867-4)82 /minBlood Pressure Systolic (8480-6)91 mm[Hg]Blood Pressure Diastolic (8462-4)61 mm[Hg]01/20/2025 10:44 AMTemperature (8310-5)98.2 [degF]Oxygen Saturation (40826-7)97 %Respiratory Rate (9279-1)18 /minHeart Rate (8867-4)73 /minBlood Pressure Systolic (8480-6)97 mm[Hg]Blood Pressure Diastolic (8462-4)57 mm[Hg]01/21/2025 10:27 AMTemperature (8310-5)97.8 [degF]Oxygen Saturation (48243-4)96 %Respiratory Rate (9279-1)16 /minHeart Rate (8867-4)83 /minBlood Pressure Systolic (8480-6)126 mm[Hg]Blood Pressure Diastolic (8462-4)67 mm[Hg] 01/22/2025 09:15 AMTemperature (8310-5)98.2 [degF]Oxygen Saturation (78201-4)96 %Respiratory Rate (9279-1)16 /minHeart Rate (8867-4)80 /minBlood Pressure Systolic (8480-6)132 mm[Hg]Blood Pressure Diastolic (8462-4)79 mm[Hg]01/23/2025 09:33 AMTemperature (8310-5)98.2 [degF]Oxygen Saturation (82771-1)96 % Respiratory Rate (9279-1)16 /minHeart Rate (8867-4)71 /minBlood Pressure Systolic (8480-6)128 mm[Hg]Blood Pressure Diastolic (8462-4)72 mm[Hg]01/22/2025 08:40 PMBody Weight (83527-9)169.5 [lb_av]Body Mass Index (66933-9)26.54 kg/m2 01/24/2025 10:17 AMTemperature (8310-5)98.1 [degF]Oxygen Saturation (70322-5)97 %Respiratory Rate (9279-1)16 /minHeart Rate (8867-4)65 /minBlood Pressure Systolic (8480-6)106 mm[Hg]Blood Pressure Diastolic (8462-4)56 mm[Hg]01/25/2025 09:13 AMTemperature (8310-5)98.3 [degF]Oxygen Saturation (36579-6)95 % Respiratory Rate (9279-1)16 /minHeart Rate (8867-4)75 /minBlood Pressure Systolic (8480-6)110 mm[Hg]Blood Pressure Diastolic (8462-4)80 mm[Hg]01/25/2025 09:12 AMTemperature (8310-5)98 [degF]01/26/2025 01:40 AMTemperature (8310-5)97.2 [degF]01/26/2025 10:58 AMTemperature (8310-5)98.1 [degF]Oxygen Saturation (38684-4)94 %Respiratory Rate (9279-1)18 /minHeart Rate (8867-4)65 /minBlood Pressure Systolic (8480-6)140 mm[Hg]Blood Pressure Diastolic (8462-4)76 mm[Hg] 01/26/2025 11:28 AMTemperature (8310-5)98.1 [degF] Social History No smoking Hx information available Encounters Type CPT Code Date Location Provider Indication s encounter report 01/04/2025 11:06 Kirit Bull MD01encounter lddzpu4601/04/2025 01:20 Poly RODRIGUEZ Advance Directives Directive Description Verification Date Supporting Document(s) Resuscitation
--- OUTSIDE RECORDS SUMMARY | 2025-01-26 12:06 | XMS_ITS | Patient Health Record ---
Author Organization [facility] Address [address] [place] [address] Care Team Providers Care [employer] Name Role Phone Shruti Burris Unavailable [phone] SIXTO SIMMONS CNP Unavailable Unavailable Gustabo May Unavailable [phone] Maxine Torres Unavailable Allergies Allergen (clinical drug ingredient) Drug/Non Drug Allergy documented on EMR Reaction Allergy Type Onset Date Status penicillin (uncoded)UnknownAllergyActiveindomethacinindomethacinUnknownDrug AllergyActivefentanylfentaNYLUnknownDrug AllergyActivezolpidemAmbienUnknownDrug AllergyActive Results Component Value Reference Range Notes Surgery Scheduling (Not yet reviewed by provider) Interpretation: Performing Lab: Notes/Report: Primary Insurance Company: MEDICARE Surgeon/Assist:ST SAGE/ AMIE OR ALEXISSurgery Location:[facility] Date & Time:04/13/24 @ 10:30AMHosp arrival time day of:9:30AMSurgery End Time:12:00PM Procedure:LUMBAR I &DSpecial Equipment:ANABELLA VELA TABLEAdmission Type: INPATIENTAnesthesia Type/CPNB:GENERALPost-op Appointment Date:05/25/24 @ 10:30AM Katelyn:Leno Physician:CLEAREDHistory & Physical Appointment Date/:04/13/24CT HEAD WO CONTRAST Reviewed date:03/06/2024 07:29:49 AM Interpretation: Performing Lab: Notes/Report: CT head without contrast [facility] [address], [place] [address], Original Ordering Provider: Joanne LAWRENCE Provider Role: CopiedXR CHEST PORTABLE Reviewed date:03/06/2024 07:29:49 AM Interpretation: Performing Lab: Notes/Report: 1 view chest x-ray [facility] [address], [place] [address], Original Ordering Provider: Joanne LAWRENCE Provider Role: CopiedMagnesium Reviewed date:04/25/2024 11:56:11 AM Interpretation: Performing Lab: Notes/Report: [address] [address]Heimpsfgi Lvl1.91.7-2.4 mg/dLTroponin-I Reviewed date:04/25/2024 11:56:06 AM Interpretation: Performing Lab: Notes/Report: [address] [address]Fwprwwbj-V<0.030.00-0.03 ng/mL An increased Troponin-I value, in the absence of myocardial ischemia, may indicate other etiologiesof cardiac damage. 99th Percentile Cutoff for Negative/Positive: Negative <= 0.03 Positive >= 0.04 CMP Reviewed date:04/25/2024 11:56:11 AM Interpretation: Performing Lab: Notes/Report: [address] [address]Fpernc Cwn702097-147 mmol/LPotassium Lvl3.23.4-4.8 mmol/L Qipxbgfr6515-775 mmol/GFV30829-58 mmol/LAnion Rzk54-92Enxcbue Ceb3972-55 mg/dL OAW200-61 mg/dLCreatinine Lvl1.300.61-1.24 mg/dLBUN Crea Ratio19.210.0-20.0Bili Total0.80.3-1.2 mg/dLAlk Qhmv37853-54 IU/DMBL7940-33 IU/LCMY3773-52 IU/LTotal Protein6.66.5-8.1 g/dLAlbumin Lvl3.03.2-4.9 g/dLAG Ratio0.81.1-2.2Calcium Lvl8.5 8.5-10.3 mg/dLPhosphorus Reviewed date:04/25/2024 11:56:11 AM Interpretation: Performing Lab: Notes/Report: [address] [address]Tzonhebuqa5.12.5-4.6 mg/dLBNP Reviewed date:04/25/2024 11:56:06 AM Interpretation: Performing Lab: Notes/Report: [address] [address]ORJ9489-648 pg/mL.AMI 2 Hr Reviewed date:04/25/2024 11:56:06 AM Interpretation: Performing Lab: Notes/Report: [address] [address] Hour Troponin<0.030.00-0.03 ng/mL An increased Troponin-I value, in the absence of myocardial ischemia, may indicate other etiologiesof cardiac damage. 99th Percentile Cutoff for Negative/Positive: Negative <= 0.03 Positive >= 0.04 2 Hour Ilyqiyzko45.817.4-105.7 ng/mLMRSA, PCR Reviewed date:04/16/2024 01:17:51 PM Interpretation: Performing Lab: Notes/Report: [address] [address]Greghomdkaw Resistant Staph aurus(MRSA)Not DetectedNot Detected Mutations or polymorphisms in primer or probe binding regions may affect detection of new or unknown MRSA variants resulting in a false negative. The [employer] Xpert MRSA Assay is a qualitative in [...] to the clinician. LAB ONLY Result Called?NoXR LUMBAR SPINE 1 VW Reviewed date:02/22/2024 03:19:14 PM Interpretation: Performing Lab: Notes/Report: MOBILE LATERAL LUMBAR SPINE: [facility] [address] [place], [place] [address], Original Ordering Provider: SHRUTI BURRIS, Joanne Provider Role: Ordering.eGFR Reviewed date:04/25/2024 11:56:06 AM Interpretation: Performing Lab: Notes/Report: [address] [address]Gxerigtsv GFR55>=60 mL/min/1.73m? [facility] have implemented the eGFR calculation [...] Age = years CBC w/ Diff Reviewed date:04/25/2024 11:56:11 AM Interpretation: Performing Lab: Notes/Report: [address] [address]YDZ8.74.5-11.0 x10*3/mcLRBC2.784.30-5.80 x10*6/mcLHgb8.913.5- 17.5 g/dLHct26.741.0-53.0 %MCV96.180.0-100.0 fLMCH32.227.0-35.0 tcSPNN87.531.0- 37.0 %Kitczrys048216-809 x10*3/thHRIM61.711.6-14.8 %Mean Platelet Volume6.76.7- 10.6 fLDiff Auto Reviewed date:04/25/2024 11:56:11 AM Interpretation: Performing Lab: Notes/Report: [address] [address]Awvjfn Auto63.447.2-70.8 %Lymph Auto25.527.2-40.8 %[place] Auto6.5 4.7-13.9 %Eos Auto3.90.0-6.1 %Basophil Auto0.70.0-1.2 %Neutro Absolute5.51.8-7.7 x10*3/mcLLymph Absolute2.21.0-4.8 x10*3/mcLMono Absolute0.60.3-1.1 x10*3/mcLEos Absolute0.30.0-0.4 x10*3/mcLBaso Absolute0.10.0-0.2 x10*3/mcLC Bld Reviewed date:04/20/2024 08:42:56 AM Interpretation: Performing Lab: Notes/Report: [address] [address]Qron Patient Name: Tavo Wallis : 1940 [facility] Severiano Lee Below For Report Final No growth at 5 days. C Bld Reviewed date:04/20/2024 08:42:56 AM Interpretation: Performing Lab: Notes/Report: [address] [address]Lhqe Patient Name: Tavo Wallis : 1940 [facility] Severiano RebolledodSly Below For Report Final No growth at 5 days. .eGFR Reviewed date:04/16/2024 01:17:51 PM Interpretation: Performing Lab: Notes/Report: [address] [address]Cafukinsn GFR46>=60 mL/min/1.73m? [facility] have implemented the eGFR calculation [...] Age = years CBC w/ Diff Reviewed date:04/16/2024 01:17:51 PM Interpretation: Performing Lab: Notes/Report: [address] [address]HHE4.54.5-11.0 x10*3/mcLRBC2.414.30-5.80 x10*6/mcLHgb7.713.5- 17.5 g/dLHct23.341.0-53.0 %MCV96.580.0-100.0 fLMCH32.027.0-35.0 qqJVWC82.231.0- 37.0 %Ovaxawsi783977-091 x10*3/krYAJJ83.411.6-14.8 %Mean Platelet Volume6.96.7- 10.6 fLMagnesium Reviewed date:04/16/2024 01:17:51 PM Interpretation: Performing Lab: Notes/Report: [address] [place], [place] [address]Rnozrxxgf Lvl2.01.7-2.4 mg/dLBasic Metabolic Profile Reviewed date:04/16/2024 01:17:51 PM Interpretation: Performing Lab: Notes/Report: [facility] [address] [place], [place] [address]Mspvan Dwz002923-268 mmol/LPotassium Lvl3.63.4-4.8 mmol/L Jbwzqity6541-745 mmol/HKQ22070-29 mmol/LAnion Lof64-29Nkkwrji Isi5138-67 mg/dL CSI705-15 mg/dLCreatinine Lvl1.510.61-1.24 mg/dLBUN Crea Ratio15.210.0-20.0 Calcium Lvl8.58.5-10.3 mg/dLDiff Auto Reviewed date:04/16/2024 01:17:51 PM Interpretation: Performing Lab: Notes/Report: [address] [address]Picqob Auto55.647.2-70.8 %Lymph Auto33.227.2-40.8 %[place] Auto6.6 4.7-13.9 %Eos Auto3.80.0-6.1 %Basophil Auto0.80.0-1.2 %Neutro Absolute4.11.8-7.7 x10*3/mcLLymph Absolute2.51.0-4.8 x10*3/mcLMono Absolute0.50.3-1.1 x10*3/mcLEos Absolute0.30.0-0.4 x10*3/mcLBaso Absolute0.10.0-0.2 x10*3/mcLABO/Rh Reviewed date:04/16/2024 01:17:51 PM Interpretation: Performing Lab: Notes/Report: [facility] (UNKNOWN) [facility] [place], [place] [address]PCB/RhABO/Rh: O POSABSC Auto Reviewed date:04/16/2024 01:17:51 PM Interpretation: Performing Lab: Notes/Report: [facility] (UNKNOWN) [address] [place], [place] [address]WIXQ AutoAntibody Screen: Negative ABSCHgb Reviewed date:04/18/2024 07:51:19 AM Interpretation: Performing Lab: Notes/Report: [address] [address]Gxh6.013.5-17.5 g/dLHct26.141.0-53.0 %Ferritin Reviewed date:04/16/2024 01:17:51 PM Interpretation: Performing Lab: Notes/Report: [address] [address]Nskjqbnt Uly144.523.9-336.2 ng/mLFolate Lvl Reviewed date:04/16/2024 01:17:51 PM Interpretation: Performing Lab: Notes/Report: [address] [address]Dtmfir Lvl5.9>=5.9 ng/mLA WHO Technical Consultation has determined that deficient Folate concentrations are considered to be less than 4 ng/mL.B12 Reviewed date:04/16/2024 01:17:51 PM Interpretation: Performing Lab: Notes/Report: [address] [address]Vsjkscs B12 Auf659827-406 pg/mLRetic Count Reviewed date:04/16/2024 01:17:51 PM Interpretation: Performing Lab: Notes/Report: [address] [address]Qmh78.041.0-53.0 %Reticulocyte1.60.8-2.5 %Ret Abs0.0370 Corrected Retic Count0.820.80-2.50 %TIBC Reviewed date:04/16/2024 01:17:51 PM Interpretation: Performing Lab: Notes/Report: [address] [address]Unym Sat11.6>=16.0 %VGAR587973-684 mcg/cCOzaoeeskoxl170299-113 mg/bTGzzl5343-840 mcg/dLBasic Metabolic Profile Reviewed date:04/18/2024 07:51:19 AM Interpretation: Performing Lab: Notes/Report: [address] [address]Jzqjuv Nie980933-213 mmol/LPotassium Lvl3.73.4-4.8 mmol/L Jzpotenc40420-358 mmol/RTZ11969-20 mmol/LAnion Yzv59-80Foskvxy Dei7252-33 mg/dL HYH564-95 mg/dLCreatinine Lvl1.370.61-1.24 mg/dLBUN Crea Ratio14.610.0-20.0 Calcium Lvl8.48.5-10.3 mg/dL.eGFR Reviewed date:04/18/2024 07:51:19 AM Interpretation: Performing Lab: Notes/Report: [address] [address]Viuaafobh GFR52>=60 mL/min/1.73m? [facility] have implemented the eGFR calculation [...] date:04/18/2024 07:51:19 AM Interpretation: Performing Lab: Notes/Report: [address] [address]Lkwuqbosz Lvl2.01.7-2.4 mg/dLVanco Trough Reviewed date:04/18/2024 07:51:19 AM Interpretation: Performing Lab: Notes/Report: [address] [address]Tzefe Gifazc75.810.0-15.0 mcg/mLSodium Reviewed date:04/18/2024 07:51:19 AM Interpretation: Performing Lab: Notes/Report: [address], [place] [address]Tnoevn Eum924147-549 mmol/LCBC w/ Diff Reviewed date:04/18/2024 07:51:19 AM Interpretation: Performing Lab: Notes/Report: [address], [place] [address]OYU1.64.5-11.0 x10*3/mcLRBC2.844.30-5.80 x10*6/mcLHgb9.013.5- 17.5 g/dLHct26.441.0-53.0 %MCV93.080.0-100.0 fLMCH31.827.0-35.0 apKNNE17.231.0- 37.0 %Qwvpvuvc988682-664 x10*3/smUZEU47.711.6-14.8 %Mean Platelet Volume6.56.7- 10.6 fLDiff Auto Reviewed date:04/18/2024 07:51:19 AM Interpretation: Performing Lab: Notes/Report: [address], [place] [address]Gecxrw Auto54.947.2-70.8 %Lymph Auto28.727.2-40.8 %[place] Auto9.7 4.7-13.9 %Eos Auto5.40.0-6.1 %Basophil Auto1.30.0-1.2 %Neutro Absolute3.11.8-7.7 x10*3/mcLLymph Absolute1.61.0-4.8 x10*3/mcLMono Absolute0.50.3-1.1 x10*3/mcLEos Absolute0.30.0-0.4 x10*3/mcLBaso Absolute0.10.0-0.2 x10*3/mcLHgb Reviewed date:04/18/2024 07:51:19 AM Interpretation: Performing Lab: Notes/Report: [address], [place] [address]Yzt9.113.5-17.5 g/dLHct27.241.0-53.0 %C Sterile BS Reviewed date:04/25/2024 11:56:06 AM Interpretation: Performing Lab: Notes/Report: [facility] (DEFAULT) [address] [place] [address] [facility] [address] [place], [place] [address]Eago Patient Name: Tavo Wallis : 1940 [facility] C Sterile BSSee Below For Report [...] PA SUSCEPTIBILITY ORGANISM ID: 1 ANTIBIOTIC INTERPRETATION EBLLA STATUS SUSCEPTIBILITY ORGANISM ID: 1 ANTIBIOTIC INTERPRETATION [...] ORGANISM ID: 1 ANTIBIOTIC INTERPRETATION BELLA STATUS Magnesium Reviewed date:04/18/2024 11:33:44 AM Interpretation: Performing Lab: Notes/Report: [address] [address]Lovobtyws Lvl1.81.7-2.4 mg/dLCRP Reviewed date:04/18/2024 11:33:44 AM Interpretation: Performing Lab: Notes/Report: [address] [address]JEH40.600.00-0.75 mg/dL CRP measurement is useful for assessment of non-specific INFLAMMATORY RESPONSE to infection or injury AND is a sensitive MARKER of ACUTE INFLAMMATION including CARDIAC RISK ASSESSMENT. CARDIAC patients with elevated CRP are POTENTIALLY at a HIGHER RISK OF FUTURE CARDIAC EVENTS. Severiano SAUL Reviewed date:04/25/2024 11:56:06 AM Interpretation: Performing Lab: Notes/Report: [address] [address]Yftv Patient Name: Tavo Wallis : 1940 [facility] Severiano Sanders Below For Report Final No anaerobic growth after 72 hrs. Basic Metabolic Profile Reviewed date:04/18/2024 11:33:44 AM Interpretation: Performing Lab: Notes/Report: [address] [address]Hlyfbh Gfl793876-743 mmol/LPotassium Lvl3.93.4-4.8 mmol/L Rblgnaor4388-427 mmol/NHO53858-51 mmol/LAnion Olc63-79Rvglaqr Jew3543-29 mg/dL HAK984-70 mg/dLCreatinine Lvl1.450.61-1.24 mg/dLBUN Crea Ratio13.110.0-20.0 Calcium Lvl8.38.5-10.3 mg/dL.eGFR Reviewed date:04/18/2024 11:33:44 AM Interpretation: Performing Lab: Notes/Report: [address] [address]Kggahhafd GFR48>=60 mL/min/1.73m? [facility] have implemented the eGFR calculation [...] Age = years CBC w/ Diff Reviewed date:04/18/2024 11:33:44 AM Interpretation: Performing Lab: Notes/Report: [address] [address]LQP0.54.5-11.0 x10*3/mcLRBC2.904.30-5.80 x10*6/mcLHgb8.913.5- 17.5 g/dLHct26.841.0-53.0 %MCV92.680.0-100.0 fLMCH30.627.0-35.0 qwPCJG07.131.0- 37.0 %Iihnoexw825323-768 x10*3/zdDAJO64.111.6-14.8 %Mean Platelet Volume6.96.7- 10.6 fLDiff Auto Reviewed date:04/18/2024 11:33:44 AM Interpretation: Performing Lab: Notes/Report: [address] [address]Lwiazm Auto53.747.2-70.8 %Lymph Auto32.027.2-40.8 %[place] Auto9.7 4.7-13.9 %Eos Auto4.00.0-6.1 %Basophil Auto0.60.0-1.2 %Neutro Absolute4.51.8-7.7 x10*3/mcLLymph Absolute2.71.0-4.8 x10*3/mcLMono Absolute0.80.3-1.1 x10*3/mcLEos Absolute0.30.0-0.4 x10*3/mcLBaso Absolute0.10.0-0.2 x10*3/mcLESR Reviewed date:04/18/2024 11:33:44 AM Interpretation: Performing Lab: Notes/Report: [address] [address]Mvb Uxhc155-82 mm/hrXR Chest 1 View Reviewed date:04/18/2024 11:33:44 AM Interpretation: Performing Lab: Notes/Report: Patient Name: Tavo Wallis CLINICAL HISTORY: Worsening dyspnea.Respiratory Pathogens Panel Reviewed date:04/20/2024 08:42:56 AM Interpretation: Performing Lab: Notes/Report: [address] [address]Ldxdwoafi ANot DetectedNot DetectedInfluenza A/H1Not Detected Not DetectedInfluenza [...] Bordatella holmesii, Bordatella pertussis. Results from the [facility] Respiratory Pathogens Panel should be interpreted with [...] Influenza A and / or Influenza B. Diff Auto Reviewed date:04/20/2024 08:42:56 AM Interpretation: Performing Lab: Notes/Report: [facility] [address] [place], [place] [address]Ztydey Auto50.147.2-70.8 %Lymph Auto32.327.2-40.8 %[place] Auto 11.24.7-13.9 %Eos Auto5.90.0-6.1 %Basophil Auto0.50.0-1.2 %Neutro Absolute3.5 1.8-7.7 x10*3/mcLLymph Absolute2.21.0-4.8 x10*3/mcLMono Absolute0.80.3-1.1 x10*3/mcLEos Absolute0.40.0-0.4 x10*3/mcLBaso Absolute0.00.0-0.2 x10*3/mcL Magnesium Reviewed date:04/20/2024 08:42:56 AM Interpretation: Performing Lab: Notes/Report: [address] [address]Cepzyreyq Lvl2.11.7-2.4 mg/dLBasic Metabolic Profile Reviewed date:04/20/2024 08:42:56 AM Interpretation: Performing Lab: Notes/Report: [place] [address] [place], [place] [address]Betzrf Zdl636015-307 mmol/LPotassium Lvl3.83.4-4.8 mmol/L Pkhrnhzf7307-352 mmol/FIM79500-94 mmol/LAnion Bhw98-04Cknhmpd Tia8744-05 mg/dL WDN055-13 mg/dLCreatinine Lvl1.370.61-1.24 mg/dLBUN Crea Ratio14.610.0-20.0 Calcium Lvl8.58.5-10.3 mg/dL.eGFR Reviewed date:04/20/2024 08:42:56 AM Interpretation: Performing Lab: Notes/Report: [address] [address]Rzfkzoiyd GFR52>=60 mL/min/1.73m? [facility] have implemented the eGFR calculation [...] date:04/20/2024 08:42:56 AM Interpretation: Performing Lab: Notes/Report: [address] [address]JQI7.94.5-11.0 x10*3/mcLRBC2.964.30-5.80 x10*6/mcLHgb9.313.5- 17.5 g/dLHct27.441.0-53.0 %MCV92.480.0-100.0 fLMCH31.427.0-35.0 mxRADR96.031.0- 37.0 %Nhsnocma921218-145 x10*3/arDFUT71.111.6-14.8 %Mean Platelet Volume7.26.7- 10.6 fL.eGFR Reviewed date:04/20/2024 08:42:56 AM Interpretation: Performing Lab: Notes/Report: [address] [address]Pkehulvih GFR57>=60 mL/min/1.73m? [facility] have implemented the eGFR calculation [...] date:04/20/2024 08:42:56 AM Interpretation: Performing Lab: Notes/Report: [address] [address]QYP1.04.5-11.0 x10*3/mcLRBC2.934.30-5.80 x10*6/mcLHgb9.113.5- 17.5 g/dLHct27.241.0-53.0 %MCV92.980.0-100.0 fLMCH31.127.0-35.0 jzYHAR66.531.0- 37.0 %Xzlmvawv312740-315 x10*3/ruGJTI06.611.6-14.8 %Mean Platelet Volume7.06.7- 10.6 fLDiff Auto Reviewed date:04/20/2024 08:42:56 AM Interpretation: Performing Lab: Notes/Report: [address] [address]Wrenbj Auto49.447.2-70.8 %Lymph Auto32.327.2-40.8 %[place] Auto9.0 4.7-13.9 %Eos Auto8.70.0-6.1 %Basophil Auto0.60.0-1.2 %Neutro Absolute3.01.8-7.7 x10*3/mcLLymph Absolute1.91.0-4.8 x10*3/mcLMono Absolute0.50.3-1.1 x10*3/mcLEos Absolute0.50.0-0.4 x10*3/mcLBaso Absolute0.00.0-0.2 x10*3/mcLMagnesium Reviewed date:04/20/2024 08:42:56 AM Interpretation: Performing Lab: Notes/Report: [address] [address]Wqpasezcv Lvl2.11.7-2.4 mg/dLBasic Metabolic Profile Reviewed date:04/20/2024 08:42:56 AM Interpretation: Performing Lab: Notes/Report: [address] [address]Iuqboh Kug114680-709 mmol/LPotassium Lvl3.73.4-4.8 mmol/L Mncctbbu3795-386 mmol/HEO84575-10 mmol/LAnion Gpb19-05Cwkwdot Ess6718-09 mg/dL JQD845-29 mg/dLCreatinine Lvl1.250.61-1.24 mg/dLBUN Crea Ratio15.210.0-20.0 Calcium Lvl8.68.5-10.3 mg/dL Reason For Referral Reason BONE STIM Diagnosis 1 Anterolisthesis of l umbar spine (M43.16) Referral Organization [facility] Referring Provider First Name Selmerna Referring Provider Last Name [place] Referring Provider Speciality Orthopedic Surgery Referred Organization [facility] Referred Address [address] [place],[address], General Notes Viridiana Mehta 02/10/2024 11:35:01 AM > ALL CLINICAL SENT TO [facility] FOR BONE STIM Referral Priority Routine Reason NO AUTH REQ......... .............................NOT SCHEDULED.................................MCR/ANTHEM MRI LUMBAR TO BE DONE AT [facility] Diagnosis 1 Aftercare following surgery of the musculoskeletal system (Z47.89) Referral Organization [facility] Referring Provider First Name Shruti Referring Provider Last Name [place] Referring Provider Speciality Orthopedic Surgery Referred Organization [facility] Central Scheduling Referred Address [address] [place], [place],[address],[place] Procedure 1 MRI Lumbar Spine w/o Dye (29514) General Notes Ania Gilmore 2024 10:07:48 AM >, Shobha Stanton 03/23/2024 10:13:34 AM > MEDICARE PARTS A & B ACTIVE AND EFFECTIVE 07/05/06 PER [facility] WITH [employer] SECONDARY. NO AUTHORIZATION REQUIRED. FAXED TO FACILITY.Anthony Sara 03/26/2024 11:58:10 AM > order faxed Referral Priority Routine Reason NO AUTH REQ..............................04/13/24................................MCR/LUCIUS Fink LUMBAR I & [place] [address] [place] [address] [place] [address] no dictation available Diagnos is 1 Wound dehiscence (T81.30XA) Referra l [facility] Referri ng Provide r First Name Shruti Agarwal ng Provide r Last Name [facility] Referjovanni ng Provide r Special ity Orthopedic Surgery Referre d [facility] Inpatient Referre d Address [address] [place], [place],[address],[place] Procedu re 1 Incision and drainage of hematoma seroma or fluid collection (95454) Procedu re 2 Incision and drainage complex po wound i nfection (62695) Procedu re 3 Secondary closure surgical wound or dehi scence, ext or comp (24541) General Notes Ania Gilmore 04/12/2024 02:02:58 PM >, Ania Gilmore 04/12/2024 02:41:05 PM >PATIENT WAS SEEN IN THE OFFICE 03/23, MRI ORDERED AND BEING SEEN IN THE OFFICE TOMORROW, Shobha Stanton 04/12/2024 02:45:29 PM > MEDICARE PARTS A & B ACTIVE AND EFFECTIVE 07/05/06 PER [facility] WITH [employer] SECONDARY. NO AUTHORIZATION REQUIRED. FAXED TO [facility].Mando Dawn 04/16/2024 09:09:49 AM >SURGERY WAS CANCELLED. PATIENT ADMITTED FOR OTHER ISSUES AND THEN TRANSFERRED TO [facility] AND WILL BE DONE TOMORROW MORNING, Shobha Stanton 04/16/2024 09:14:49 AM > NOTED, THANK YOU. Referra l Priorit y Stat Medications Medication SIG (Take, Route, Frequency, Duration) Notes Start Date End Date Status Oxycodone Activepotassium chlorideActivelevothyroxineActivemagnesium oxideActivebumetanide ActiveeszopicloneActiveatorvastatinActiveallopurinolActiveEliquisActivetraZODone ActiveFlexeril 10 mg1 tab(s) orally 3 times a day5Activepramipexole ActiveFlexeril 10 mg1 tab(s) orally 3 times a day prn muscle kkanvx6704/22/2023 Active Social History Tobacco Use: Social History [...] Status Risk Notes Problem History of arthrodesis (552836595) Arthro desis status (Z98.1) ActiveconfirmedProblemDehiscence of surgical wound (06991407)Disruption of external operation (surgical) wound, 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, initial encounter (T81.31XA)ActiveconfirmedProblemPostoperative seroma (175325751)Postprocedural seroma of skin and subcutaneous tissue following other procedure (L76.34)Active confirmedProblemArachnoiditis (1088746)Arachnoiditis (G03.9)Activeconfirmed ProblemSpinal stenosis of lumbar region (10129568)Spinal stenosis, lumbar region without neurogenic claudication (M48.061)ActiveconfirmedProblemNeurogenic claudication (354888619)Lumbar stenosis with neurogenic claudication (M48.062) ActiveconfirmedProblemLeft foot drop (finding) (190840867874648)Acquired left foot drop (M21.372)ActiveconfirmedProblemEncounter for other orthopedic aftercare (Z47.89)ActiveconfirmedProblemAcquired spondylolisthesis (854427489) Anterolisthesis of lumbar spine (M43.16)ActiveconfirmedProblemBilateral sacral insufficiency fracture (disorder) (98079755841776004)Sacral insufficiency fracture with routine healing, subsequent encounter (M84.48XD)Activeconfirmed ProblemOther intervertebral disc degeneration, lumbar region with discogenic back pain and lower extremitypain (M51.362)Activeconfirmed Encounters Encounter Location Date Provider Diagnosis [facility] [address] [place] [id number] 02/17/2024 Gustabo Diglio Anterolisthesis of lumbar spine M43.16 ; Lumbar stenosis with neurogenic claudication M48.062 and Other intervertebral disc degeneration, lumbar region with discogenic back pain and lower extremity pain M51.362 [facility] Out[facility] [address], [place] [id number] 02/21/2024 [place]vo[place]ane [place] Spinal stenosis, lumbar region without neurogenic claudication M48.061 ; Other intervertebral disc degeneration, lumbar region with discogenic back pain and lower extremity pain M51.362 ; Anterolisthesis of lumbar spine M43.16 and Acquired left foot drop M21.372 [facility] [address] [address] [place] [address] 03/09/2024 [facility] Encounter for other orthopedic aftercare Z47.89 and Arthrodesis status Z98.1 [facility] [address] [employer] [facility] [place] [address] [place] [address] 03/23/2024 [facility] Disruption of external operation (surgical) wound, 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, initial encounter T81.31XA ; Postprocedural seroma of skin and subcutaneous tissue following other procedure L76.34 ; Encounter for other orthopedic aftercare Z47.89 and Arthrodesis status Z98.1 [facility] [address] [employer] [facility] [place] [address] [place] [address] 04/13/2024 Gustabo Diglamonto Wound dehiscence T81.30XA 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, 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, initial encounter T81.31XA [facility] [address] [employer] [facility] [place] [address] [place] [address] 05/11/2024 Max[facility] Encounter for other orthopedic aftercare Z47.89 ; Disruption of external operation (surgical) wound, 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, initial encounter T81.31XA and Arthrodesis status Z98.1 [facility] [place] [place] [address] [place] [address] 02/14/2024 [facility] [place] [address] [place] [id number]/ [place] [address] [place] [id number]/[facility] Assessments Encounter Date Diagnosis (ICD Code) Assessment [...] - Z98.1)1. 2 weeks s/p L2-5 revision decompression/fiyhxw2703/09/2024 Encounter for other orthopedic aftercare (ICD-10 - Z47.89)1. 2 weeks s/p L2-5 revision decompression/dkyxmj9303/23/2024Disruption of external operation (surgical) wound, 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, initial encounter (ICD-10 - T81.31XA)1. 4 weeks s/p L2-5 revision decompression and coates2503/23/2024 Postprocedural seroma of skin and subcutaneous tissue following other procedure (ICD-10 - L76.34)1. 4 weeks s/p L2-5 revision decompression and lmmbtt2704/13/2024 Wound dehiscence (ICD-10 - T81.30XA)1. 6-week status post lumbar decompression and noninstrumented fusion with postoperative fluid collection, wound drainage and wound azxrquxfoy11/11/2025Disruption of external operation (surgical) wound, not elsewhere [...] 4 weeks s/p L2-5 revision decompression and etkftv094Anterolisthesis of lumbar spine (ICD-10 - M43.16)02/17/2024Other intervertebral disc degeneration, lumbar region with discogenic back pain and lower extremitypain (ICD-10 - M51.362) 02/21/2024cquired left foot drop (ICD-10 - M21.372)03/23/2024rthrodesis status (ICD-10 - Z98.1)1. 4 weeks s/p L2-5 revision decompression and pdwdpm1002/17/2024 OtherA lumbosacral corset brace has been ordered [...] regards, 1. 2 weeks s/p L2-5 revision decompression/zutwkz1803/23/2024Other Plan established by Dr. Man. Patient evaluated [...] 4 weeks s/p L2-5 revision decompression and mczugs5504/13/2024Other Plan established by Dr. Man. At this [...] postoperative fluid collection, wound drainage and wound ynptvbdqkp99/07/2025 Other Overall patient is starting to improve. Infectious disease is going to extend his meropenem IV for 1 more week and then reassess as there is a very small area of dehiscence still with some drainage. Patient will continue with his LSO brace and physical therapy at the [facility]. I did refill his Flexeril [...] Date Lumbar spine, 4v flex ext - 59969 2023 Lumbar spine 2v ap and lat - 20739 05/11 Surgery Scheduling 01/25/2024 Surgery Scheduling 04/12/2024 DME - Lumbar Support, Surgical OTS 02/16 GRD-Compression stockings:thigh-high OTS 03/09/2024 BONE STIMULATOR 02/17/2024 MRI : Lumbosacral Spine W/O Contrast - 7 8 03/23/2024 Future Test Test Name Order Date Chest 2 views - 02286 01/25/2024 CBC 01/25/2024 Type and Screen Blood Type 01/25/2024 PT/PTT 01/25/2024 BMP 01/25/2024 MRSA (Bilateral Nares) PCR 01/25/2024 EKG 01/25/2024 Insurance Providers Payer Name Payer Address Payer Phone Subscriber Number Group Number Insured Name Patient Relationship to Insured Coverage Start Date Coverage End [place] [address] [place] [address] [id number] DAMION WALLIS JRelf - patient is the insuredAnthemPO [address] [place] [id number] JR, WILLIAMSelf - patient is the insured Medical (General) History Medical History History ICD Code High Blood Pressure Abnormal Heart RhythmThyroid diseaseStomach ulcersCancer spineKidney stones OsteoarthritisRheumatoid arthritisBleeding DisordersSurgical History Surgery Date(Month/Year) Rotator cuff surgery
--- OUTSIDE RECORDS SUMMARY | 2025-01-26 12:07 | XMS_ITS | Encounter Summary ---
Author Organization [facility] Address [address] [place] [address] Care Team Providers Care Train Director Name Role Phone Unavailable Primary Care Provider Unavailabl e Encounter Details DateTypeDepartmentCare Team (Latest Contact Info)Upfmwseakbr74/20/2025bstract [facility] [address] [place] [id number] Unallocated, [facility], [address] [place] [address] Social History Tobacco UseTypesPacks/DayYears UsedDateSmoking Tobacco: Never AssessedSex and Gender InformationValueDate RecordedSex Assigned at BirthNot on fileLegal Sex Male05/19/2022 6:54 PM EDTGender IdentityNot on fileSexual OrientationNot on filedocumented as of this encounter Plan of Treatment Not on file documented as of this encounter Visit Diagnoses Not on filedocumented in this encounter
--- OUTSIDE RECORDS SUMMARY | 2025-01-26 12:07 | XMS_ITS | CCD ---
Author Organization [facility] ion Partnership [facility] Care Team Providers Care Forex Trader Name Role Phone Opal Ga Unavailable Unavailable Unavailable Opal Ga Unavailable DO Opal Ga Primary Care Provider AKUA Rodarte Attending Provider DO Opal Ga Attending Provider DO Opal Ga Primary Care Provider DO Opal Ga Attending Provider MD Frankie Paiz Emergency Provider DO Dharmesh Zavala Admit Provider [phone] DO Dharmesh Zavala Attending Provider [phone] Shy Mcdonough Other Provider Unavailable DO Meme De La Torre Other Provider MD Mani Dickens Other Provider DO Matheus Rizvi Other Provider [phone] Antonia ANP- Hoa Other Provider DO Vikas Mane Other Provider RIKY Degroot Other Provider MD Raji Ennis Attending Provider [phone] MD Frankie Reynolds Other Provider RIKY Mix Attending Provider DO Opal Ga Attending Provider [phone] Kuns, DO Opal Primary Care Provider Kuns, DO Opal Myers Attending Provider [phone] Kuns, Dr. Opal Parker Primary Care Unavaila [...] Opal Parker Primary Care Unavaila ble Urena, Mavr Attending Unavailable Kunmyranda, Dr. Opal Parker Primary [...] Primary Care Unavailable LAKSHMIPATHY ., YANNI Attending Nicehlle vailable HALKER ., DOMINIC Consulting Unavailable BRAMBILA ., DR TROY Whitmore Admitting Unavailable BRAMBILA ., DR TROY Whitmore Attending Unavailable RODARTE ., NATACHA Consulting Unavailable DAILY, DR WIGGINS Primary Care Unavailable Tjs, DO Wiggins Primary Care Provider [phone] Tjs, DO Wiggins Attending Provider Kuns Opal HARGROVE Primary Care Provider Kuns, DO Opal Primary Care Provider DO Bhupinder Mcintyre Attending Provider [phone] Kuns, DO Wiggins Attending Provider Kuns Opal HARGROVE Primary Care Provider Opal Ga DO Primary Care Provider JUNE, RANDI F Admitting Unavailable JUNE, MARCELLUSN F Attending Unavailable OPAL GA Primary Care Unavailable ORIANA, OLUREMI A Consulting Unavailable Kuns DO, Opal Primary Care Provider [phone] Tjs DOOpal Attending Provider Bunting DO, Sandip [...] Care Provider Amy TIDWELL, Mitchell Admit Provider Michele Knight MD Attending Provider Randi Batista MD Attending Provider Bunting DO, Sandip Attending Provider Bunting DO, Sandip R Attending Provider [phone] Veronica HARGROVE, Marcos Fink Emergency Provider Daily DOOpal Primary Care Provider Mitchell Reyes MD Admit Provider [phone] Michele Knight MD Attending Provider Randi Batista MD Attending Provider Bunting DO, Sandip Attending Provider Bunting DO, Sandip R Attending Provider [phone] Tjs , Opal Primary Care Provider Tjs Opal HARGROVE Primary Care Provider [phone] Unavailable Primary Care Provider Unavailleigh ann e Kiera AIR TANK ASSEMBLER, Melvi M Emergency Provider Ramona DO, Sandip R Primary Care Provider [phone] Julian TIDWELL, Mario Admit Provider Julian TIDWELL, Mario Attending Provider Talisha TIDWELL, Keith Other Provider [phone] Shane TIDWELL, Vinay Myers Other Provider Trisha Hebert MD Other Provider Walter TIDWELL, Ronald Urbina Other Provider Lester TIDWELL, Keith Fink Other Provider Marvin TIDWELL, Albert Whitmore Other Provider [phone] Negro TIDWELL, Bayron Other Provider [phone] Laron PHARMACY OPERATIONS MANAGER-C, Nkechi Burnette Other Provider [facility], Wickes Other Provider Gail TIDWELL, Frankie Other Provider Dimitry TIDWELL, Stephanie Attending Provider Trisha Hebert Attending Unavailable Ambar Summers Attending Unavailable BAYRON TOM Attending Unavail able BAYRON TOM Referring Unavail able Nkechi Larry Attending Unavailable Ambar Summers Attending Unavailable Tye Pompa Attending Unavailable [facility] AIR TANK ASSEMBLER-TRUCK LOADER AND UNLOADER, Tamar Asencio [facility] Tye Pompa Attending Unavailable [facility] AIR TANK ASSEMBLER-TRUCK LOADER AND UNLOADER, Tamar Asencio Attending [facility], [facility] AIR TANK ASSEMBLER-TRUCK LOADER AND UNLOADER, Tamar Asencio Attending U navailable [facility][note 2] AIR TANK ASSEMBLER-TRUCK LOADER AND UNLOADER, Tamar Asencio Attending U navailable Francisco Javier [...] DO, Tavo Be Primary Care Unavai labfrederic [facility], Sandip R Attending Provider Melvi Qureshi APRN Emergency Provider [facility], Sandip R Primary Care Provider Julian TIDWELL, Mario Admit Provider Keith Woodall MD Other Provider Vinay Lynn MD Other Provider Trisha Hebert MD Other Provider Walter TIDWELL, Ronald Urbina Other Provider Keith Batista MD Other Provider [phone] Albert Wong MD Other Provider [phone] Negro TIDWELL, Bayron Other Provider Laron ALLEN-C, Nkechi Burnette Other Provider [phone] [facility], Ella Other Provider Frankie Reynolds MD Other Provider Stephanie Moraes MD Attending Provider [phone] Julian TIDWELL, Mario Other Provider Itzkowitz DO, Bryce Other Provider Frankie Reynolds MD Attending Provider Opal Ga DO Primary Care Provider Opal Ga DO Attending Provider NO FAMILY, PHYSICIAN Primary Care Provider Unava ilable Bunting DO, Sandip R Attending Provider Keely Montoya APRN Attending Provider Bunting DO, Sandip R Attending Provider Bhupinder Mcintyre DO Attending Provider Bunting DO, Sandip R Attending Provider Bunting DO, Sandip R Attending Provider Julian TIDWELL, Mario Other Provider Itzkofelice DO, [...] Other Provider Jovany Stovall MD Attending Provider [phone] Jovany Stovall MD Other Provider Frankie Johnson DO Attending Provider TAVO MCINTYRE Attending Unavailable OPAL GA Primary Care Unavailable Frankie Reynolds MD Attending Provider [phone] Terence Steele PA-C Emergency Provider Frankie Johnson DO Admit Provider Franck Gagnon DO Other Provider Jovany Stovall MD Attending Provider Jovany Stovall MD Other Provider Frankie Johnson DO Attending Provider Opal Ga DO Attending Provider Opal Ga DO Primary Care Provider Terence Steele PA-C Emergency Provider [phone] Frankie Johnson DO Admit Provider Franck Gagnon DO Other Provider Jovany Stovall MD Attending Provider Jovany Stovall MD Other Provider Sree Thao DO Emergency Provider Akash Mccartney MD Admit Provider Akash Mccartney MD Attending Provider Opal Ga DO Primary Care Provider [phone] Frankie Reynolds MD Attending Provider Terence Steele [...] Provider Michele Knight MD Attending Provider Niki PHARMACY OPERATIONS MANAGER-C, Cristy Attending Provider [phone] Paul , Liliana Dasilva Attending Provider [phone] [facility] Primary Care Provider Niki PHARMACY OPERATIONS MANAGER-C, Cristy Attending Provider Marker DO, Liliana Dasilva Attending Provider Clarence Schroeder DO Attending Provider [phone] Sha Pepe MD Attending Provider [phone] Bunting, Sandip R Attending Unavailable Bunting, Sandip R Admitting Unavailable Michele Knight Attending Unavailable Opal Ga [facility] Care Unavailable DoameAkash cody Admitting Unavailab Pauline [...] Sandip Attending Unavailable Michele Knight Attending [facility]available [facility] Unavailable Amy, Mitchell Admitting Unavailable [...] Attending Unavailable Marker, Liliana Dasilva Admitting Unavailable GuinClarence Attending Unavailable Guin, Clarence Fink Admitting Unavailable Bunting, Sandip Admitting Unavailable Bunting, Sandip Attending Unavailable Bunting, Sandip R Attending Unavailable Bunting, Sandip R Admitting Unavailable Allergies Allergy ClassificationReported Allergen(s)Allergy TypeDate of OnsetReaction(s) Facility (20 sources)fentaNYL; Translations: [Duragesic-75 PT72]Drug Mucqkpf28-68-5388 Dizziness, N[facility] ([facility] sources)Indomethacin; Translations: [Indocin]Drug Eidsjtu26-21-0996GxpwiFZDavid [place]ille [address] DO Work Phone: (20 sources)Penicillins; Translations: [Penicillins]Allergy to drug (finding) 12-85-2036Qzgyf, WeaknessOhio Valley Surgical HospitalComment on above: 10/09/24 - had a penicillin injection prior to a procedure 20-30 years ago and fell down some stairs afterward (20 sources)zolpidem; Translations: [Ambien]Drug Iromahs94-57-7457Puuvlqp, Other (See Comments)-[facility] [address] DO Work Phone: (20 sources)Penicillin; Translations: [penicillin]Drug Natztck00-14-9342 anaphylaxisOhio Valley Surgical Hospital (20 sources)Duragesic-75Drug zorcwxj16-39-8927vgnoqiOmhsejgoy [facility] Medical Center (20 sources)fentaNYL; Translations: [fentaNYL]Drug Vcsvrnb54-30-1049Jycxihlwu, Dizziness, loopy [facility] (20 sources)Indomethacin; Translations: [INDOMETHACIN]Drug Zrkfhul38-22-9605 DizzinessOhio Valley Surgical Hospital (20 sources)zolpidem; Translations: [ZOLPIDEM]Drug Ruprchf98-30-2843Idzytrqgz, Confusion, memory lossOhio Valley Surgical Hospital (1 source)fentaNYLDrug AllergyThe [facility] (2 sources)PenicillinsDrug allergy (disorder)61-51-8380Zdn [facility] Repository (1 source)ProcyclidineDrug AllergyThe [facility] Rep[facility] (1 source)zolpidemDrug AllergyThe [facility] (4 sources)PenicillinsDrug Qrhfwlz62-95-1572Syvpv, Mental Status Change [facility] Work Phone: (1 source)Duragesic-25; Translations: [Duragesic-25]Propensity to adverse reactions (disorder)[facility] Repository (1 source)FentaNYL Matrix; Translations: [FentaNYL Matrix]Propensity to adverse reactions (disorder)[facility] Repository (1 source)PenicillinsDrug allergy (disorder)52-93-3987JapidjophOhio Valley Surgical Hospital Repository Medications Current Medications MedicationDrug Class(es)DatesSig (Normalized)Sig (Original)albuterol 0.833 mg/ml / ipratropium bromide 0.167 mg/ml inhalation solution (20 sources)Anticholinergic, beta2-Adrenergic AgonistStart: 87-21-2143Wliqv: 21-31-4203egsp 1 mL by inhalation three times dailyStart: 07-12-2024 End: 34-48-7741Pekkc: 07-12-2024 End: 08-94-7858btzz 1 mL by inhalation every six hours as needed for wheezing Ipratropium-Albuterol 0.5 mg-3 mg(2.5 mg base)/3 mL solution for nebulization Discontinued 3 ML INHALATION Every 6 hours as needed for shortness of breath or wheezing July 12, 2024 12:00am September 1:59pmazithromycin 250 mg oral tablet (3 sources)Macrolide AntimicrobialStart: 65-55-6208Humzimlgu Z-Jed 250 MG as directed Orally Sep, Activebudesonide 0.25 mg/ml inhalation suspension (4 sources)CorticosteroidStart: 26-83-2215Eybbp: 88-09-0484jrro 0.5 mg by inhalation twice dailybumetanide 1 mg oral tablet (20 sources)Loop DiureticStart: mg, IntraVENous, ONCE, 1 dose, On 02/25/24 at 0900Start: 10-17-2019 End: 53-99-7341Zbhpu: 10-17-2019 End: 71-74-6682Xuwya: 01-14-2016 End: 85-68-6790igku 1 tablet by mouth once dailyBumetanide 1 mg tablet Discontinued 1 MG PO Daily June 06, 2023 12:00am June 06, 2023 3:49pmStart: 65-65-4961wnsv 0.5 tablet by mouth once daily as neededBumex 1 MG 0.5 tablet Orally Once a day PRN Jan, ActiveStart: 93-68-9181prpn 1 tablet by mouth every other day as neededBumex 1 MG 1 tablet Orally every other day PRN Jan, ActiveStart: 03-77-0253KIJUK 2 MG TABLET Take one(1) tablet daily. 0 04/07/2004 Activecefdinir 300 mg oral capsule (1 source)Cephalosporin AntibacterialStart: 02-27-2024 End: 37-55-2450zvzf 1 capsule by mouth twice dailycefdinir (OMNICEF) [...] mg oral capsule (1 source)Nonsteroidal Anti-inflammatory DrugStart: 33-64-2570XZRPZLBN 200 MG CAPSULE Take one(1) capsule daily. 0 04/07/2004 ActiveCompression Pump (20 sources)Start: 20-78-0836Iivleafchja Pump as directed to bilateral lower extremity Q other PM Feb, Activecompression stockings 30-40 mmhg (20 sources)Start: 99-99-2337mlatsnppkzf stockings 30-40 mmhg as directed knee high as directed 2 pair 30-40mmhg size xs. 5 gvaris, 9[address], [place] [address] Sep, ActiveStart: 51-37-9330kkajticdfeh stockings 30-40 mmhg as directed knee high as directed 2 pair Sep, ActivedilTIAZem hydrochloride 30 mg oral tablet (3 sources)Calcium Channel BlockerStart: 13-49-5088uwpsyxhjbnhf 5 mg oral tablet (1 source)Serotonin Reuptake InhibitorStart: 44-51-6189CSVFLGB 5 MG TABLET take one half daily 0 04/07/2004 Activeglucagon (rdna) 1 mg injection (1 source)Antihypoglycemic AgentStart: 71-57-61575972 ml glucose 100 mg/ml injection (3 sources)Start: 61-36-7780Wgvxx: 25-02-0947vjpjhtoi bolus 10% 125 mLStart: 58-63-6603Noxijsamd (20 sources)Magnesium 400 MG Orally Activetake 1 tablet by mouth once daily Magnesium 400 MG Oral Tablet Take 1 tablet daily Quantity: 0 Refills: 0 Ordered: 05-Jan-2021 DO Activemagnesium oxide 400 mg oral tablet (20 sources)Start: 01-05-2024 End: 25-14-9404bjbp 1 tablet by mouth once dailymagnesium oxide (Mag-Ox) 400 mg (241.3 mg magnesium) tablet Indications: Chronic atrial fibrillation (Multi) , Essential hypertension, benign , Non-ischemic cardiomyopathy (Multi) Take 1 tablet (400 mg) by mouth once daily. 90 tablet 3 01/05/2024 01/04/2025 Active Start: 07-21-3652Bfweo: 60-73-0967lajv 1 tablet by mouth once dailyMagnesium Oxide 400 (240 Mg) MG Oral Tablet TAKE 1 TABLET BY MOUTH EVERY DAY Quantity: 90 Refills: 3 Ordered: 16-Feb-2022 Tavo Mcintyre DO Start : 15-Feb-2022 Active Start: 10-17-2019 End: 72-82-6991wcgykxfpp hydrochloride 2.5 mg oral tablet (2 sources)alpha-Adrenergic AgonistStart: 26-76-5524bgen 2.5 mg by mouth three times daily at mealtime2.5 mg, Oral, 3 TIMES DAILY WITH MEALS, First dose (after last modification) on Tue02/24/24 at 0800, Until Discontinued, Do not give after 1800 or within 4 hrs of bedtime. Hold for sbp > 120Start: 02-22-2024 End: 04-69-1786kolg 10 mg by mouth three times daily at pfuigkmi11 mg, Oral, 3 TIMES DAILY WITH MEALS, First dose on Tue02/22/24 at 2130, Until Discontinued, Do not give after 1800 or within 4 hrs of bedtime.Multi For Him (20 sources)Multi For Him Activenystatin 100 unt/mg topical powder (20 sources)Polyene AntifungalStart: 62-73-7713Scqaq: 67-85-4190Qmsmv: 06-06-2023 End: 85-47-3231Ybjvy: 06-06-2023 End: 75-05-1295Geuzelpv 100,000 unit/gram powder Discontinued 1 APPLIC TOPICAL Twice daily June 06, 2023 12:00amJan2024 11:14am FreeTextSi application Externally Twice a day; Note: Source Status: Taking; Refills: 3; Provider: Daily Wiggins PStart: 58-11-4502Jqivvhkw 141124 UNIT/GM 1 application Externally Twice a day for 30 days Feb, Activeondansetron (ZOFRAN-ODT) disintegrating tablet 4 mg (1 source)Start: 83-68-3646alsmotdgdki (ZOFRAN-ODT) disintegrating tablet 4 mg microencapsulated potassium chloride 20 meq extended release oral tablet (20 sources)Start: 13-41-6715Vvlek: 03-92-6146dgobadefe chloride (KLOR-CON M) extended release tablet 40 mEqStart: 12-21-2019 End: 16-59-3589Pmhsv: 12-21-2019 End: 38-31-1699ijnc 1 tablet by mouth at bedtimePotassium Chloride 20 mEq Tablet Extended Release Discontinued 20 MEQ PO Bedtime December 21, 201912:00am January 04, 2020 12:33pm On Hold: Resume on 12/26/19.Start: 80-49-7164suvn 1 tablet by mouth once dailyK-Dur 20 mEq 1 tablet orally Once a day Oct, ActiveStart: 04-07-2004 End: 97-60-8998stpipivesvj dihydrochloride 0.25 mg oral tablet (15 sources)Nonergot Dopamine AgonistStart: 10-05-2024 End: 12-18-2024 End: 65-28-6358sjdc 1 tablet by mouth once dailypramipexole (MIRAPEX) 0.25 MG tablet Take 1 tablet by mouth daily 02/27/2024 Discontinued (Stop Taking at Discharge)terazosin 2 mg oral capsule (1 source)alpha-Adrenergic BlockerStart: 82-92-3209OKOMMY 2 MG CAPSULE Take one(1) capsule daily. 0 04/07/2004 Active Completed/Discontinued Medications MedicationDrug Class(es)DatesSig (Normalized)Sig (Original)acetaminophen 500 mg oral tablet (20 sources)Start: 03-10-2024 End: 15-78-5685Xfjqy: 03-10-2024 End: 00-55-4934bufa 1 tablet by mouth three times daily as needed for pain Acetaminophen (Acetaminophen Extra Strength) 500 mg tablet Discontinued 500 MG PO Three times dailyas needed for pain 20 July 17, 2024 1:26pm December 12, 2024 3:21pmStart: 77-87-2628olxy 1 tablet by mouth twice dailyAcetaminophen (Acetaminophen Extra Strength) 500 mg tablet Active 500 MG PO Twice daily March 10, 2024 12:00amStart: 93-43-3802953 mg, Rectal, EVERY 4 HOURS PRN, Starting on 02/25/24 at 0700, Until Discontinued, Pain Mild (1-3), Fever, Maximum dose of acetaminophen is 4000 mg from all sources in 24 hours.Start: 06-06-2023 End: 52-50-7825Lwsdr: 06-06-2023 End: 21-52-9002Ccsif: 01-04-2020 End: 29-36-4170Crhvi: 01-04-2020 End: 80-49-3464zbjc 2 tablets by mouth twice dailyAcetaminophen 500 mg Tablet Discontinued 1000 MG PO Twice daily 60 0 January 04, 2020 12:00am June 06, 2023 11:56amStart: 01-04-2020 End: 87-40-6676Ujknv: 01-04-2020 End: 28-84-5722enwe 1000 mg by mouth twice dailyAcetaminophen Discontinued 1000 MG PO Twice daily January 04, 2020 12:00am June 06, 2023 11:56amStart: 10-17-2019 End: 18-24-7756Vljfj: 10-17-2019 End: 73-16-6994kcdz 2 tablets by mouth twice dailyAcetaminophen (Tylenol) 325 mg Tablet Discontinued 650 MG PO Twice daily October 17, 2019 12:00am November 06, 2019 9:42am paintake 1 capsule by mouth every six hoursTylenol 325 MG 1 capsule as needed Orally every 6 hrs Activeacetaminophen 325 mg / HYDROcodone bitartrate 5 mg oral tablet (20 sources)Opioid AgonistStart: 11-06-2019 End: 85-85-9395Wieka: 11-06-2019 End: 73-21-7047ckdk 1 tablet by mouth every six hours as needed for pain Hydrocodone-Acetaminophen ([place]) 5-325 mg tablet Discontinued 1 TAB PO Q6H as needed for pain 10 0Sept2019November 06, 2019 9:42am Other injury of unspecified body regionStart: 11-06-2019 End: 41-90-0066Mrwxz: 11-06-2019 End: 78-98-0933fskk 1 tablet by mouth every six hours as needed for pain Hydrocodone-Acetaminophen ([place]) 5-325 mg tablet Discontinued 1 TAB PO Q6H as needed for pain 10 November 06, 2019 November 05, 2020 9:42amStart: 11-06-2019 End: 19-85-3244pjyw 1 tablet by mouth every six hours as needed for pain Hydrocodone-Acetaminophen ([place]) 5-325 mg tablet Discontinued 1 TAB PO Q6H as needed for pain November 06, 2019 November 06, 2019 9:42amStart: 11-06-2019 End: 62-71-9663nxoy 1 tablet by mouth every six hours as needed for pain Hydrocodone-Acetaminophen ([place]) 5-325 mg tablet Discontinued 1 TAB PO Q6H as needed for pain November 06, 2019 November 06, 2019 9:42amStart: 11-06-2019 End: 05-21-8784tjcp 1 tablet by mouth every six hours as needed for pain Hydrocodone-Acetaminophen ([place]) 5-325 mg tablet Discontinued 1 TAB PO Q6H as needed for pain November 06, 2019 November 06, 2019 9:42amStart: 11-06-2019 End: 94-31-8877ghww 1 tablet by mouth every six hours as needed for pain Hydrocodone-Acetaminophen ([place]) 5-325 mg tablet Discontinued 1 TAB PO Q6H as needed for pain November 06, 2019 November 06, 2019 9:42amStart: 11-06-2019 End: 80-17-6027cisf 1 tablet by mouth every six hours as needed for pain Hydrocodone-Acetaminophen ([place]) 5-325 mg tablet Discontinued 1 TAB PO Q6H as needed for pain November 06, 2019 November 06, 2019 9:42amStart: 11-06-2019 End: 13-58-4655Othli: 11-06-2019 End: 46-96-5657Lnzth: 11-06-2019 End: 80-74-3589omwt 1 tablet by mouth every six hours as needed for pain Hydrocodone-Acetaminophen ([place]) 5-325 mg tablet Discontinued 1 TAB PO Q6H as needed for pain November 06, 2019 November 06, 2019 9:42amStart: 11-06-2019 End: 14-82-9503ipyx 1 tablet by mouth every six hours as needed for pain Hydrocodone-Acetaminophen ([place]) 5-325 mg tablet Discontinued 1 TAB PO Q6H as needed for pain November 06, 2019 November 06, 2019 9:42amStart: 11-06-2019 End: 84-21-3992qgag 1 tablet by mouth every six hours as needed for pain Hydrocodone-Acetaminophen ([place]) 5-325 mg tablet Discontinued 1 TAB PO Q6H as needed for pain November 06, 2019 November 06, 2019 9:42amStart: 11-06-2019 End: 87-04-7508gbnv 1 tablet by mouth every six hours as needed for pain Hydrocodone-Acetaminophen ([place]) 5-325 mg tablet Discontinued 1 TAB PO Q6H as needed for pain 10 November 06, 2019 November 06, 2019 9:42amStart: 11-06-2019 End: 35-79-7995Dckoh: 11-06-2019 End: 14-31-7958Hvduq: 11-06-2019 End: 21-31-0484Kugqh: 11-06-2019 End: 07-30-4439Reffy: 11-06-2019 End: 66-42-4426Eymdv: 11-06-2019 End: 15-59-7738guuq 1 tablet by mouth every six hours as needed for pain Hydrocodone-Acetaminophen ([place]) 5-325 mg tablet Discontinued 1 TAB PO Q6H as needed for pain November 06, 2019 November 06, 2019 9:42amStart: 11-06-2019 End: 22-52-2255pobq 1 tablet by mouth every six hours as needed for pain Hydrocodone-Acetaminophen ([place]) 5-325 mg tablet Discontinued 1 TAB PO Q6H as needed for pain November 06, 2019 November 06, 2019 9:42amStart: 11-06-2019 End: 89-32-3530Stuoq: 11-06-2019 End: 52-87-4178Htpbz: 11-06-2019 End: 70-05-8542aylh 1 tablet by mouth every six hours as needed for pain Hydrocodone-Acetaminophen ([place]) 5-325 mg tablet Discontinued 1 TAB PO Q6H as needed for pain November 06, 2019 November 06, 2019 9:42amStart: 11-06-2019 End: 40-16-0042ctgz 1 tablet by mouth every six hours as needed for pain Hydrocodone-Acetaminophen ([place]) 5-325 mg tablet Discontinued 1 TAB PO Q6H as needed for pain November 06, 2019 November 06, 2019 9:42amStart: 11-06-2019 End: 38-10-7240vbkn 1 tablet by mouth every six hours as needed for pain Hydrocodone-Acetaminophen ([place]) 5-325 mg tablet Discontinued 1 TAB PO Q6H as needed for pain November 06, 2019 November 06, 2019 9:42amStart: 11-06-2019 End: 49-72-2060jnua 1 tablet by mouth every six hours as needed for pain Hydrocodone-Acetaminophen ([place]) 5-325 mg tablet Discontinued 1 TAB PO Q6H as needed for pain November 06, 2019 November 06, 2019 9:42amStart: 11-06-2019 End: 79-99-0330pqft 1 tablet by mouth every six hours as needed for pain Hydrocodone-Acetaminophen ([place]) 5-325 mg tablet Discontinued 1 TAB PO Q6H as needed for pain November 06, 2019 November 06, 2019 8:42amStart: 11-06-2019 End: 50-57-2961islj 1 tablet by mouth every six hours as needed for pain Hydrocodone-Acetaminophen ([place]) 5-325 mg tablet Discontinued 1 TAB PO Q6H as needed for pain November 06, 2019 November 06, 2019 8:42amStart: 11-06-2019 End: 31-45-6340gxes 1 tablet by mouth every six hours as needed for pain Hydrocodone-Acetaminophen ([place]) 5-325 mg tablet Discontinued 1 TAB PO Q6H as needed for pain November 06, 2019 November 06, 2019 8:42amStart: 11-06-2019 End: 46-65-5265lroh 1 tablet by mouth every six hours as needed for pain Hydrocodone-Acetaminophen ([place]) 5-325 mg tablet Discontinued 1 TAB PO Q6H as needed for pain November 06, 2019 November 06, 2019 8:42amStart: 11-06-2019 End: 46-52-1968zdbo 1 tablet by mouth every six hours as needed for pain Hydrocodone-Acetaminophen ([place]) 5-325 mg tablet Discontinued 1 TAB PO Q6H as needed for pain November 06, 2019 November 06, 2019 8:42amStart: 11-06-2019 End: 17-05-2084oiac 1 tablet by mouth every six hours as needed for pain Hydrocodone-Acetaminophen ([place]) 5-325 mg tablet Discontinued 1 TAB PO Q6H as needed for pain November 06, 2019 November 06, 2019 8:42amStart: 11-06-2019 End: 19-07-6608jccu 1 tablet by mouth every six hoursHydrocodone-Acetaminophen ([place]) 5-325 mg tablet Discontinued 1 TAB PO Q6H November 06, 2019 S 2019 9:42amStart: 11-06-2019 End: 11-04-8373wiqk 1 tablet by mouth every six hoursHydrocodone-Acetaminophen ([place]) 5-325 mg tablet Discontinued 1 TAB PO Q6H November 06, 2019 S 2019 9:42amStart: 11-06-2019 End: 70-87-6958lrbw 1 tablet by mouth every six hoursHydrocodone-Acetaminophen ([place]) 5-325 mg tablet Discontinued 1 TAB PO Q6H November 06, 2019 S 2019 9:42amStart: 11-06-2019 End: 32-44-8989cjdm 1 tablet by mouth every six hoursHydrocodone-Acetaminophen ([place]) 5-325 mg tablet Discontinued 1 TAB PO Q6H November 06, 2019 S 2019 9:42amStart: 11-06-2019 End: 14-05-0243rlon 1 tablet by mouth every six hoursHydrocodone-Acetaminophen ([place]) 5-325 mg tablet Discontinued 1 TAB PO Q6H November 06, 2019 S 2019 8:42amStart: 11-06-2019 End: 67-63-9200crgl 1 tablet by mouth every six hoursHydrocodone-Acetaminophen ([place]) 5-325 mg tablet Discontinued 1 TAB PO Q6H November 06, 2019 S 2019 8:42amStart: 11-06-2019 End: 67-01-4349ujsm 1 tablet by mouth every six hoursHydrocodone-Acetaminophen ([place]) 5-325 mg tablet Discontinued 1 TAB PO Q6H November 06, 2019 S 2019 8:42amStart: 11-06-2019 End: 27-24-7322yhgy 1 tablet by mouth every six hoursHydrocodone-Acetaminophen ([place]) 5-325 mg tablet Discontinued 1 TAB PO Q6H November 06, 2019 S 2019 8:42amStart: 11-06-2019 End: 30-09-0732vurc 1 tablet by mouth every six hoursHydrocodone-Acetaminophen ([place]) 5-325 mg tablet Discontinued 1 TAB PO Q6H November 06, 2019 S sheyariel 2019 9:42amStart: 11-06-2019 End: 99-56-4641dmjz 1 tablet by mouth every six hoursHydrocodone-Acetaminophen ([place]) 5-325 mg tablet Discontinued 1 TAB PO Q6H November 06, 2019 S sheyariel 2019 9:42amStart: 86-66-0532PGTCHXN 5/500 TABLET as needed 0 04/07/2004 Activeacetaminophen 325 mg / oxyCODONE hydrochloride 5 mg oral tablet (20 sources)Opioid AgonistStart: 06-06-2023 End: 90-87-6693cezb 1 tablet by mouth every six hours as needed for pain Oxycodone-Acetaminophen 5-325 mg tablet Discontinued 1 TAB PO Every 6 hours as needed for pain 8 2 0 July 17, 2024 October 05, 2024 7:29pm Abscess of left lower extremity Cutaneous abscess of left lower limbStart: 02-18-2022 End: 30-31-8516ddfh 1 tablet by mouth twice dailyoxyCODONE-acetaminophen (Percocet) 5-325 mg tablet Take 1 tablet by mouth 2 times a day. 07/08/2022 ActiveStart: 01-16-2022 End: 56-02-2084cubb 1 tablet by mouth every eight hours as needed for pain Oxycodone-Acetaminophen 5-325 mg Tablet Discontinued 1 TAB PO Q8H as needed for Moderate Pain 9 3 0Nov2021June 06, 2023 11:57am Low back pain Low back pain, unspecifiedStart: 01-04-2020 End: 11-30-5176lxtf 1 tablet by mouth every four hours as needed for pain Oxycodone-Acetaminophen 5-325 mg Tablet Discontinued 1 TAB PO Q4H as needed for Mild Pain 30 7 0 January 04, 2020 January 16, 2022 1:30pm Status post total left knee replacement Presence of leftartificial knee jointStart: 11-06-2019 End: 23-79-4633Ykvox: 11-06-2019 End: 56-20-8807ugxt 1 tablet by mouth every four to [...] Orally every [address] Brambila PRN Zsaecq01 ml albumin human, snf 250 mg/ml injection (1 source)Human Serum AlbuminStart: [...] tablet (20 sources)Xanthine Oxidase InhibitorStart: 04-07-2004 End: 27-36-3870jseyakiu 5 mg oral tablet (20 sources)Factor Xa InhibitorStart: 12-12-2024 End: 48-66-8850Cdydd: 03-15-2024 End: 06-07-6704Pbjme: 03-15-2024 End: 20-76-2813vpzv 2 tablets by mouth twice dailyApixaban (Eliquis) 2.5 mg Tablet Discontinued 5 MG PO Twice daily July 12, 2024 12:00am December 18, 2024 11:08amStart: 10-17-2019 End: 22-62-1107bdnzoobikzhz 40 mg oral tablet (20 sources)HMG-CoA Reductase InhibitorStart: 10-17-2019 End: 59-95-1276uzwyankrkb hydrochloride 0.137 mg/actuat metered dose nasal spray (20 sources)Histamine-1 Receptor AntagonistStart: 10-17-2019 End: 68-71-7475vrfayfufkp hydrochloride 0.137 mg/actuat / fluticasone propionate 0.05 mg/actuat metered dose nasalspray (20 sources)Corticosteroid, Histamine-1 Receptor AntagonistStart: 10-17-2019 End: 72-36-6485Vtssr: 10-17-2019 End: 00-69-8266Fjospxxipg-Fluticasone 137-50 mcg/spray [place],Non-Aerosol Discontinued 1 SPRAY INTRANASAL Twice daily October 17, 2019 12:00am December 24, 2019 11:02amStart: 10-17-2019 End: 81-04-7905Alkbamqlrr-Fluticasone Discontinued 1 SPRAY INTRANASAL Twice daily October 16, 2019 11:00pm December 24, 2019 10:02amStart: 10-17-2019 End: 69-41-2013Vsqrzdigut-Fluticasone Discontinued 1 SPRAY INTRANASAL Twice daily October 17, 2019 12:00am December 24, 2019 11:02amAzelastine-Fluticasone 137-50 mcg/spray [place],Non-Aerosol (12 sources)Start: 10-17-2019 End: 86-73-1534Vliakrguyq-Fluticasone 137-50 mcg/spray [place],Non-Aerosol Discontinued 1 SPRAY INTRANASAL Twice daily October 17, 2019 12:00am December 24, 2019 11:02amStart: 10-17-2019 End: 90-32-3098Dftwcnvtqm-Fluticasone 137-50 mcg/spray [place],Non-Aerosol Discontinued 1 SPRAY INTRANASAL Twice daily October 16, 2019 11:00pm December 24, 2019 10:02ambisacodyl 5 mg delayed release oral tablet (3 sources)Stimulant LaxativeStart: 29-91-1880jigs 10 mg by mouth once daily10 mg, Oral, DAILY, First dose (after last modification) on Tue02/23/24 at 0900, Until Discontinued, Do not crush or break., Post-opStart: 06-45-0001Iqosu: 02-21-2024 End: 27-02-9017oroz 5 mg by mouth once daily5 mg, Oral, DAILY, First dose on Tue02/21/24 at 1945, Until Discontinued, Do not crush or break., Post-opcarvedilol 3.125 mg oral tablet (20 sources)alpha-Adrenergic Saroj, beta-Adrenergic BlockerStart: 03-15-2024 End: 90-61-1940Gemwo: 02-16-2024 End: 79-93-2686Atdtj: 10-17-2019 End: 29-80-5435deOGFfrva (ANCEF) 2,000 mg in sterile water 20 mL IV syringe (1 source)Start: 02-21-2024 End: 42,000 mg, IntraVENous, EVERY 8 HOURS, 2 doses, First dose on Tue02/21/24 at 2000, Last dose on Tue02/22/24 at 0400, Antimicrobial Indications: Surgical Prophylaxis, Administer over 5 mins. Reconstitute 2 g vial with 20 mL Sterile Water. Withdraw entire contents., Post-opcefepime 2000 mg injection (16 sources)Cephalosporin AntibacterialStart: 07-17-2024 End: 04-81-4812niurzdudwm 500 mg oral capsule (20 sources)Cephalosporin AntibacterialStart: 04-11-2017 End: 32-33-4476ztksvbrlwmyic 500 mg oral tablet (15 sources)Quinolone AntimicrobialStart: 08-29-2024 End: 88-72-5728khkmbtcnycl 300 mg oral capsule (20 sources)Lincosamide AntibacterialStart: 03-10-2024 End: 40-22-3150esbsstpnxhhfgxb hydrochloride 10 mg oral tablet (1 source)Muscle RelaxantStart: 57-92-4559snmc 10 mg by mouth three times daily as wbulbp35 mg, Oral, 3 TIMES DAILY PRN, Starting on Tue02/21/24 at 1918, Until Discontinued, Muscle spasms, Post-opdiclofenac sodium 0.01 mg/mg topical gel (20 sources)Nonsteroidal Anti-inflammatory DrugStart: 01-04-2020 End: 23-64-6128Ualzy: 01-04-2020 End: 26-02-7614ssckk 2 g topically three times dailyDiclofenac Sodium Discontinued 2 GM TOPICAL Three times daily January 04, 2020 12:00am January 09, 2022 2:10pmdigoxin 0.125 mg oral tablet (20 sources)Cardiac GlycosideStart: 10-17-2019 End: 05-85-1373wapt 1 tablet by mouth every twenty-four hoursDigoxin 125 MCG 1 tablet Orally Once a day Activedocusate sodium 100 mg oral capsule (20 sources)Start: 11-06-2019 End: 16-98-3105Hycvy: 11-06-2019 End: 07-50-4097hhmw 1 capsule by mouth once daily as neededDocusate Sodium 100 mg capsule Discontinued 100 MG PO Daily as needed June 06, 2023 12:00am Januar y 2024 11:13amdocusate sodium 50 mg / sennosides, snf 8.6 mg oral tablet (2 sources)Start: 02-21-2024 End: 98-13-6159inyo 2 tablets by mouth twice daily2 tablet, Oral, 2 TIMES DAILY, First dose (after last modification) on Tue02/22/24 at 2100, Until D iscontinued, Post-opdoxycycline hyclate 100 mg oral tablet (20 sources)Tetracycline-class DrugStart: 07-12-2024 End: 03-15-1559Vvhyq: 12-23-2023 End: 32-36-7852pqoamibfw 1000 mg injection (3 sources)Penem AntibacterialStart: 12-18-2024 End: 24-99-1539nqohtbllaak 3 mg oral tablet (20 sources)Start: 11-16-2021 End: 20-47-8417Fciod: 55-99-9916rjrq 1 tablet by mouth every twenty-four hours Eszopiclone 3 MG 1 tablet immediately before bedtime Orally Once a day May, ActiveStart: 10-17-2019 End: 64-08-0834sfbhurtsow 0.92 mg/ml / menthol 0.42 mg/ml / methyl salicylate 0.6 mg/ml / thymol 0.64 mg/ml mouthwash (1 source)Start: 84-16-3695ybhk 15 mL by mouth three times daily as vbinan02 mL, Swish & Spit, 3 TIMES DAILY PRN, Starting on 02/25/24 at 0814, Until Discontinued, Dry Mouthfluticasone propionate 0.05 mg/actuat metered dose nasal spray (20 sources)CorticosteroidStart: 01-09-2022 End: 06-16-7108Cxwswcnresa Propionate 50 mcg/actuation spray,suspension Discontinued 1 SPRAY NARES-BOTH Daily at bedtime as needed for Nasal Congestion January 09, 2022 2:10pm June 06, 2023 11:57amStart: 01-04-2020 End: 99-20-5491Cwjwd: 01-04-2020 End: 94-92-7077Ycjfbtjolsz Propionate 50 mcg/actuation [place],Suspension Discontinued 1 SPRAY NARES-BOTH Twice daily January 04, 2020 12:00am January 09, 2022 2:10pmfolic acid 1 mg oral tablet (1 source)Start: 76-22-6791ansk 1 mg by mouth once daily1 mg, Oral, DAILY, First dose on Tue02/24/24 at 1300, Until Discontinuedfolic acid 2.5 mg / vitamin b12 1 mg / vitamin b6 25 mg oral tablet (20 sources)Vitamin V92Igzwa: 01-04-2020 End: 20-93-3897Jqqwm: 01-04-2020 End: 84-83-6186mhmv 1 tablet by mouth once dailyFolic Acid-Vit [...] Janny meredith Jenna: kellyinet overrideStart: 02-21-2024 End: 62-60-7894noqd 0.25 mg by mouth once0.25 mg, IntraVENous, ONCE, 1 dose, On Tue02/21/24 at 0915, If oral and IV narcotics ordered, use oral first and only use IV if oral is ineffective or cannot take oral. Do Not give oral and IV within 1 hour of each other unless specifically ordered.hydrOXYzine pamoate 25 mg oral capsule (20 sources)AntihistamineStart: 11-06-2019 End: 92-04-8761Sruzm: 11-06-2019 End: 90-31-7775Uuwwaxc (20 sources)Start: 62-29-6464Yazhkmd Aug, 3 mLStart: 77-59-7730Ebsxybf Aug, 3 mLlactulose 667 mg/ml oral solution (20 sources)Osmotic LaxativeStart: 01-04-2020 End: 19-17-7515Llekocfda Not-Takinglevothyroxine sodium 0.15 mg oral tablet (20 sources)l-ThyroxineStart: 72-43-0823Gdytqlnxu 137 MCG 1 tablet every morning on an empty stomach Orally Once a day for 90 days Aug, ActiveStart: 10-17-2017 End: 77-79-4165Odzmp: 04-07-2004 End: 51-03-0566emwn 1 tablet by mouth once daily in the morningLevothyroxine (Synthroid) 150 mcg tablet Discontinued 150 MCG PO Every morning June 06, 2023 12:00am September 21, 2023 9:53amlinezolid 600 mg oral tablet (10 sources)Oxazolidinone AntibacterialStart: 10-10-2024 End: 81-34-4313xayswwkbff 2.5 mg oral tablet (1 source)Angiotensin Converting Enzyme InhibitorStart: 52-96-5092iyep 2.5 mg by mouth once daily2.5 mg, Oral, DAILY, First dose on 02/25/24 at 0900, Until Discontinued, Hold for SBPmagnesium hydroxide 80 mg/ml oral suspension (1 source)Start: 39-77-7466bdhy 30 mL by mouth once daily as needed for mL, Oral, DAILY PRN, Starting on 02/21/24 at 1918, Until Discontinued, Constipation, First line therapy for constipation., Post-op melatonin 5 mg oral tablet (20 sources)Start: 01-04-2020 End: 17-21-2793esqEPnutqz 5 mg oral tablet (20 sources)Thiazide-like DiureticStart: 03-10-2024 End: hr mirabegron 25 mg extended release oral tablet (20 sources)beta3-Adrenergic AgonistStart: 01-04-2020 End: 02-88-4006Dmfkk: 10-17-2019 End: 27-51-4076Wunfojesenra (Daily Multi-Vitamin) tablet (20 sources)Start: 06-06-2023 End: 58-76-6664yjmt 1 tablet by mouth once dailyMultivitamin (Daily Multi- Vitamin) tablet Discontinued 1 TAB PO Daily June 06, 2023 12:00am March 10, 2024 11:14amStart: 06-06-2023 End: 84-20-5808ejvo 1 tablet by mouth once dailyMultivitamin (Daily Multi- Vitamin) tablet Discontinued 1 TAB PO Daily June 05, 2023 11:00pm March 10, 2024 10:14amStart: 36-87-9577mnln 1 tablet by mouth once dailyMultivitamin (Daily Multi-Vitamin) tablet Active 1 TAB PO Daily June 06, 2023 12:00am mupirocin 0.02 mg/mg topical ointment (20 sources)RNA Synthetase Inhibitor AntibacterialStart: 06-06-2023 End: 78-06-0503Edilh: 06-06-2023 End: 80-60-0057Zqjwlahov Active 1 APPLIC TOPICAL Twice daily December 23, 2023 12:06pm 1 application Externally Twice a dayStart: 71-20-2609Efqjtgqnj 2 % 1 application Externally Twice a day Jan, Hapniq54 hr oxybutynin chloride 10 mg extended release oral tablet (20 sources)Cholinergic Muscarinic AntagonistStart: 06-06-2023 End: 27-51-0929Dfhzs: 01-04-2020 End: 45-22-0376Muemk: 01-04-2020 End: 55-44-7205orbn 10 mg by mouth once daily at lunchOxybutynin Chloride Discontinued 10 MG PO Daily with lunch January 04, 2020 12:00am January 2:36pmStart: 10-17-2019 End: 50-47-7987efyBLKTBE hydrochloride 5 mg oral tablet (12 sources)Opioid AgonistStart: 10-10-2024 End: 02-68-9624Dplca: 09-26-3881zgtQACQTQ (ROXICODONE) immediate release tablet 5 mgStart: 02-21-2024 End: 74-33-6991idbg 1 dose by mouth once5 mg, Oral, ONCE PRN, 1 dose, Starting on Tue02/21/24 at 1510, Until Tue02/21/24 at 1548, Pain Moderate (4-6), Pain Severe (7-10), PHASE II, PACU onlypolyethylene glycol 3350 25628 mg powder for oral solution (19 sources)Osmotic LaxativeStart: 07-17-2024 End: 75-18-7329Wnpjs: 02-21-2024 End: 81-20-377378 g, Oral, ONCE, 1 dose, On Tue02/24/24 at 1230, Stir and dissolve one packet of powder (17 g) inany 4 to 8 ounces of beverage (cold, hot or room temperature) then drinksacubitril 24 mg / valsartan 26 mg oral tablet (20 sources)Angiotensin 2 Receptor BlockerStart: 10-17-2019 End: 33-69-6341Nywne: 10-17-2019 End: 04-19-7729evam 1 tablet by mouth twice dailySacubitril-Valsartan (Entresto) 24-26 mg Tablet Discontinued 1 TAB PO Twice daily 60 0 January 04, 2020 12:00am January 16, 2022 1:30pmENTRESTO 24 mg/26 mg 1 orally twice a day Xkxjxj21 ml sodium chloride 9 mg/ml injection (8 sources)Start: 02-22-2024 End: 04-90-0725876 mL (5.79 mL/kg), IntraVENous, at 491.8 mL/hr, Administer over 61 Minutes, ONCE, On Tue02/22/24at 2044, For 1 doseStart: 75-11-59456-40 mL, IntraVENous, EVERY 12 HOURS SCHEDULED (2 [...] or Central Line = 20 mL/lumen, Post-opStart: 02-60-6228Arpjb: 02-21-2024 End: 32-85-5607YfvevVXHxlc, at 125 mL/hr, CONTINUOUS, Starting on Tue02/21/24 at 1945, Post-opStart: 89-45-3441uxvg 20 mL intravenously every hourIntraVENous, at 5-250 [...] rate field of order., Post-opStart: 02-21-2024 End: 64-54-1860ItjqpKZNrvh, at 5-250 mL/hr, PRN, if patient receiving [...] Reductase Inhibitor Antibacterial, Sulfonamide AntimicrobialStart: 12-23-2023 End: 53-82-3869Zbwdi: 12-23-2023 End: 97-26-2070xnmh 1 tablet by mouth twice dailySulfamethoxazole-Trimethoprim (Bactrim Ds) 800-160 mg tablet Discontinued 1 TAB PO Twice daily 20 0October 2023 12:00am February 13, 2024 10:23am Open wound of skin Other injury of unspecified body region, initial encounterStart: 01-09-2022 End: 20-10-8138Gjhgk: 01-07-2022 End: 02-84-0445geow 1 tablet by mouth twice dailySulfamethoxazole-Trimethoprim (Bactrim Ds) 800-160 mg Tablet Discontinued 1 TAB PO Twice daily January 09, 2022 12:00am January 16, 2022 1:30pm started 01/08/22 for 7 daysStart: 12-21-2019 End: 66-39-6200Tecuf: 12-21-2019 End: 13-51-3378lgpy 1 tablet by mouth every twelve hoursSulfamethoxazole- Trimethoprim (Bactrim Ds) 800-160 mg Tablet Discontinued 1 TAB PO Q12H December 21, 2019 12:00am December 25, 2019 1:37pmtamsulosin hydrochloride 0.4 mg oral capsule (20 sources)alpha-Adrenergic BlockerStart: 03-15-2024 End: 63-54-4097ineqbwlq 100 mg oral tablet (1 source)Start: 89-03-3174zyri 100 mg by mouth once rzqre560 mg, Oral, DAILY, First dose on Tue02/24/24 at 1300, Until DiscontinuedtraZODone hydrochloride 50 mg oral tablet (20 sources)Serotonin Reuptake InhibitorStart: 01-09-2022 End: 18-07-2826Uljxgljstzxyr (20 sources)CorticosteroidStart: 38-33-6440Xzyktqv -40 mg July, 40 mg vancomycin 1000 mg injection (16 sources)Glycopeptide AntibacterialStart: 07-17-2024 End: 09-18-2024 (18 sources)Start: 06-06-2023 End: 09-72-3727Hoaor: 10-17-2019 End: 12-24-2019 Problems Active Problems Problem ClassificationProblemDateDocumented DateEpisodic/ChronicAcute cerebrovascular disease (20 sources)Intracranial hemorrhage; Translations: [Nontraumatic intracranial hemorrhage, unspecified]Onset: 766470-18-5655VornyhpMosdjjd dysrhythmias (20 sources)Chronic atrial fibrillation; Translations: [Atrial fibrillation] Onset: 01-19-2021 Resolved: 68-79-0015AtxnhcbRhauwyj dysrhythmias (20 sources)Bradycardia; Translations: [Bradycardia, unspecified]01-10-2022 EpisodicChronic kidney disease (1 source)Chronic kidney disease; Translations: [Chronic kidney disease, stage 3 unspecified]Onset: 79-43-9906Qbwfeyd ulcer of skin (14 sources)Pressure ulcer of sacral region, stage 2; Translations: [Pressure injury of coccygeal region, stage2]Onset: 969576-43-9096Avuymyu Complication of device; implant or graft (20 sources)Urinary tract infectious disease; Translations: [Infection and inflammatory reaction due to indwelling urethral catheter, initial encounter] Onset: 738480-15-5986XtzoxnyiRqdnbtkpuc heart failure; nonhypertensive (20 sources)Heart failure; Translations: [Heart failure, unspecified]Onset: 08-31-2021 Resolved: 91-04-8705YsvnaewZovyhoro atherosclerosis and other heart disease (20 sources)Coronary atherosclerosis; Translations: [Coronary atherosclerosis of unspecified type of vessel, [place] or graft]Onset: 976575-28-7449Gwbrpkz Disorders of lipid metabolism (20 sources)Hyperlipidemia; Translations: [Other and unspecified hyperlipidemia] Onset: 01-19-2021 Resolved: 33-40-2470VcihcvdA Codes: Fall (20 sources)Unspecified fall, initial encounter; Translations: [Fall]Episodic Essential hypertension (20 sources)Benign essential hypertension; Translations: [Benign essential hypertension]Onset: 08-31-2021 Resolved: 48-97-9613LvtkohzJwryy of unknown origin (20 sources)Fever; Translations: [Fever, unspecified]Onset: 146227-65-4938 EpisodicFluid and electrolyte disorders (20 sources)Dehydration; Translations: [Dehydration]66-96-1452Trhkbkww Genitourinary symptoms and ill-defined conditions (1 source)Urge incontinence; Translations: [URGE INCONTINENCE]Onset: 05-17-2022 ChronicGout and other crystal arthropathies (20 sources)Gout; Translations: [Gout, unspecified]Onset: 09-04-2021 Resolved: 62-70-4691MsvsrzaWaboqihcfzn of prostate (20 sources)Benign prostatic hyperplasia; Translations: [Benign prostatic hyperplasia without lower urinary tract symptoms]Onset: 01-19-2021 Resolved: 67-83-1684QgmhuzdAktxocdapnzo injury (1 source)Traumatic subdural hemorrhage without loss of consciousness, initial encounter; Translations: [Traumatic subdural hemorrhage without loss of consciousness, initial encounter]Onset: 87-10-4861NmggvvyqPghucey and fatigue (20 sources)Asthenia; Translations: [Weakness]Onset: EpisodicMycoses (3 sources)Candidiasis, unspecified; Translations: [Pain in toe]Episodic Neoplasms of unspecified nature or uncertain behavior (20 sources)Ependymoma ; 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, unspecified]60-92-9701LefplczFaqgqgy on above:1989Open wounds of extremities (1 source)Laceration without foreign body of left upper arm, initial encounter EpisodicOpen wounds of head; neck; and trunk (20 sources)Laceration - injury; Translations: [Laceration]04-23-5325Qqoyvbaj Osteoarthritis (20 sources)Osteoarthritis of left knee joint; 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, left knee]ChronicOsteoporosis (7 sources)Senile osteoporosis; Translations: [Age-related osteoporosis without current pathological fracture]Onset: 926314-40-5866GwofiwiDzwfi acquired deformities (20 sources)Acquired spondylolisthesis; Translations: [Spondylolysis, lumbar region]EpisodicOther acquired deformities (20 sources)Spondylolysis; Translations: [Spondylolysis, lumbar region] 48-74-3982QuatctryYxneb acquired deformities (9 sources)Spondylolysis, lumbar region; Translations: [Acquired spondylolisthesis]73-78-9143VkjsvuoxTvrmr aftercare (20 sources)Drug therapy finding; Translations: [Long-term (current) use of other medications]14-20-0504YojxnnwnGqgqt aftercare (20 sources)Long-term current use of anticoagulant; Translations: [Long-term (current) use of anticoagulants]Onset: 299009-82-4043SamgqsoiIhhpa and unspecified benign neoplasm (20 sources)Spinal meningioma; Translations: [Benign neoplasm of spinal meninges]EpisodicOther circulatory disease (7 sources)H/O: atrial fibrillation; Translations: [Personal history of other diseases of circulatory system]EpisodicOther circulatory disease (3 sources)History of sick sinus syndrome; Translations: [Personal history of other diseases of circulatory system]EpisodicOther circulatory disease (1 source)Abnormal foot pulse; Translations: [Other specified symptoms and signs involving the circulatory and respiratory systems]75-97-2382GjaneiswLjiba connective tissue disease (20 sources)History of repair of hip joint; Translations: [Presence of left artificial hip joint]ChronicOther connective tissue disease (20 sources)Artificial knee joint present; Translations: [Presence of unspecified artificial knee joint]ChronicOther connective tissue disease (20 sources)History of total knee arthroplasty; Translations: [Presence of left artificial knee joint]50-29-4239TodhizlItnds connective tissue disease (20 sources)Synovial cyst of popliteal space; Translations: [Synovial cyst of popliteal space [[place]], left knee]EpisodicOther connective tissue disease (20 sources)Neuropathic pain; Translations: [Neuralgia and neuritis, unspecified]EpisodicOther connective tissue disease (20 sources)Recurrent falls ; Translations: [Repeated falls]34-62-3884Modolhaj Other connective tissue disease (4 sources)Repeated falls; Translations: [History of fall]Onset: 12-12-2024 67-09-2575JkvuqgiqHeylr connective tissue disease (1 source)Muscle weakness (generalized)EpisodicOther [...] (20 sources)Vascular insufficiency; Translations: [Venous insufficiency (chronic) (peripheral)]97-76-4601DtmvphtuTfrgn diseases of veins and lymphatics (3 sources)Venous insufficiency (chronic) (peripheral); Translations: [Venous (peripheral) insufficiency, unspecified]24-85-9251PltvcqdrHzxjl ear and sense organ disorders (13 sources)Tinnitus; Translations: [Tinnitus, unspecified ear]EpisodicOther fractures (12 sources)Compression fracture of lumbar spine; Translations: [Wedge compression fracture of first lumbar vertebra, initial encounter for closed fracture]39-43-9658MccyxfgzVuuht fractures (1 source)Wedge compression fracture of first lumbar vertebra, initial encounter for closed fracture; Translations: [Wedge compression fracture of first lumbar vertebra, initial encounter for closed fracture]Onset: 49-00-1845QtplkxmyGplob gastrointestinal disorders (20 sources)Constipation; Translations: [Constipation, unspecified]01-09-2022 EpisodicOther gastrointestinal disorders (3 sources)Constipation, unspecified; Translations: [Constipation, unspecified] 77-49-3951VigiamhnByfny hematologic conditions (5 sources)Raised cardiac enzyme or marker; Translations: [Other specified abnormalities of plasma proteins]05-28-3154MxdrzumiIfljk hematologic conditions (4 sources)Other specified abnormalities of plasma proteins; Translations: [Other abnormal blood chemistry]04-92-2908GdwqbwkvMjpop injuries and conditions due to external causes (20 sources)Open wound of skin; Translations: [Other injury of unspecified body region, initial encounter]61-37-2585OstrxoprUfkvz lower respiratory disease (20 sources)Hypoxemia; Translations: [Hypoxemia]94-23-7726FnmpmljhLaixs lower respiratory disease (20 sources)Hypoxia; Translations: [Hypoxemia]48-74-2984DeznvdvzVnirl nervous system disorders (20 sources)Chronic pain; Translations: [Other chronic pain]ChronicOther nervous system disorders (1 source)Other chronic painOnset: 01-19-2021 Resolved: 39-30-0199QpoabmrDnsql nervous system disorders (20 sources)Difficulty walking; Translations: [Difficulty in walking, 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]98-35-0053MkhidtpHrqgc nervous system disorders (3 sources)Difficulty in walking, 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; Translations: [Difficulty in walking]49-40-7589PaargcrNrbzn nervous system disorders (20 sources)Muscle weakness; Translations: [Other specified myopathies] 96-22-5935EnxpyngSajwr nervous system disorders (3 sources)Other specified myopathies; Translations: [Myopathy, unspecified] 49-19-2431PwlxkilWxxge nervous system disorders (1 source)Metabolic encephalopathy; Translations: [Metabolic encephalopathy] Onset: 52-19-2642ZdcfjxtCsygc non-traumatic joint disorders (20 sources)Multiple joint pain; Translations: [Pain in unspecified joint] EpisodicOther non-traumatic joint disorders (20 sources)Ankle pain; Translations: [Pain in left ankle and joints of left foot]20-18-9634BozmgwskRxkeu nutritional; endocrine; and metabolic disorders (3 sources)Body mass index 30+ - obesity; Translations: [Body Mass Index 33.0- 33.9, adult]Onset: 189421-60-4212AjlxbwiXwjva nutritional; endocrine; and metabolic disorders (20 sources)Obesity; Translations: [Obesity, unspecified]ChronicOther nutritional; endocrine; and metabolic disorders (2 sources)Body mass index (BMI) 30.0-30.9, adult; Translations: [Body mass index (BMI) 30.0-30.9, adult]Onset: 25-21-3555GkyjpoeGaixb nutritional; endocrine; and metabolic disorders (1 source)Abnormal weight lossEpisodicOther nutritional; endocrine; and metabolic disorders (3 sources)Overweight in adulthood with body mass index of 25 or more but less than 30; Translations: [Overweight]EpisodicOther screening for suspected conditions (not mental disorders or infectious disease) (20 sources)Echocardiogram abnormal; Translations: [Nonspecific (abnormal) findings on radiological and other examination of other intrathoracic organs] Onset: 01-19-2021 Resolved: 11-30-6412TzegpbdqQradc skin disorders (20 sources)Abnormality of nail of toe; Translations: [Other nail disorders] EpisodicOther skin disorders (1 source)Actinic keratosisEpisodicOther upper respiratory infections (20 sources)Sinusitis; Translations: [Chronic sinusitis, unspecified]Chronic Pratima-; endo-; and myocarditis; cardiomyopathy (except that caused by tuberculosis or sexually transmitted disease) (20 sources)Cardiomyopathy; Translations: [Other primary cardiomyopathies]Onset: 02-16-2023 Resolved: 562526-75-0126GsiijltZbgweuhu; pneumothorax; pulmonary collapse (20 sources)Pleural effusion; Translations: [Pleural effusion, 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]16-10-6866TwcmfmyvQizijgdj codes; unclassified (20 sources)Sleep apnea; Translations: [Sleep apnea, unspecified]01-09-2022 ChronicComment on above:does not use equipmentResidual codes; unclassified (3 sources)Sleep apnea, unspecified; Translations: [Unspecified sleep apnea] 73-88-0273GibtabmJqyeegwc codes; unclassified (7 sources)Swelling - edema - symptom; Translations: [Edema]EpisodicResidual codes; unclassified (20 sources)Edema; Translations: [Edema]Onset: 968328-87-3056Rrsmsusv Residual codes; unclassified (20 sources)Insomnia; Translations: [Insomnia, unspecified]58-16-2436Zcdsigws Residual codes; unclassified (8 sources)Insomnia, unspecifiedOnset: 03-05-2021 Resolved: 85-29-4405CsglsilhAgzmrkza codes; unclassified (20 sources)Activity of daily living (ADL) alteration; Translations: [Other specified health status]41-38-7843KvlqeqtbNqocfduq codes; unclassified (20 sources)Edema, generalized; Translations: [Generalized edema]12-21-2019 EpisodicResidual codes; unclassified (20 sources)Patient encounter status; Translations: [Encounter for prophylactic measures, unspecified]32-19-1974YnjmqkvvWerbgptt codes; unclassified (20 sources)Altered mental status; Translations: [Altered mental status, unspecified]42-04-7960PdbtivppAntwtsme codes; unclassified (1 source)Localized edemaEpisodicResidual codes; unclassified (3 sources)Altered mental status, unspecified; Translations: [Altered mental status]73-48-2126BfhkrpjgDbmldvoh codes; unclassified (3 sources)Generalized edema; Translations: [Edema]80-97-4559VkvmtiewXvtbirqn codes; unclassified (7 sources)Other specified health status; Translations: [Other specified conditions influencing health status]90-29-0610YyojxafxKylhzlbt codes; unclassified (1 source)Localized edema; Translations: [Localized edema]59-51-5627Ojsbzkjt Residual codes; unclassified (1 source)Other specified postprocedural states; Translations: [Other specified postprocedural states]Onset: 17-48-8994PrzckdwvIwwzxkxudwg failure; insufficiency; arrest (adult) (20 sources)Acute respiratory failure; Translations: [Acute respiratory failure with hypoxia]90-37-6352XrntmuksDjgyfxegqxg; intervertebral disc disorders; other back problems (20 sources)Degeneration of lumbar intervertebral disc; Translations: [Other intervertebral disc degeneration, lumbar region]Onset: 90-28-0332Hlmbbka Spondylosis; intervertebral disc disorders; other back problems (20 sources)Chronic low back pain; Translations: [Acute exacerbation of chronic low back pain]Onset: 821430-87-4121SecjszazTqumhezogvy injury; contusion (20 sources)Abrasion, left knee, initial encounter; Translations: [Abrasion of left upper arm, initial encounter]Onset: 63-04-3549JxohpjmrJtdqkbc disorders (20 sources)Hypothyroidism; Translations: [Hypothyroidism, unspecified]Onset: 01-19-2021 Resolved: 33-21-3988NzbfwjyLckeohovvgur (3 sources)LOW BACK PAIN, UNSPECIFIED; Translations: [LOW BACK PAIN, UNSPECIFIED]Onset: 17-30-1035Ulgnqdjefrvd (1 source)Patient encounter bumsyt60-41-3844Flxfedncxqsi (1 source)Longstanding persistent atrial fibrillation; Translations: [Longstanding persistent atrial fibrillation]Onset: 19-32-4121Xrawadadgokl (12 sources)A [facility] screening has identified you as FRAIL [...] to Beat the Frailty Risk [email or web address]-dhjfxe-ahbw- wmuz-hc-vnsb-the-fra zytc-[email or web address]nfwcc (3 sources)Chronic atrial fibrillation, unspecified; Translations: [Chronic atrial fibrillation, unspecified (Multi)]Onset: 08-48-1684Vnzsjssuihud (14 sources)For a brain CT. This must be done prior to the appointment with Dr. Stovall.Unclassified (7 sources)Please call to schedule follow up appointment following discharge from long term facility.Unclassified (7 sources)Please have the Brain CT done 1 day prior to this appointment. This appointment is scheduled with Dr. Stovall's Nurse Practitioner.Unclassified (2 sources)Please call to schedule an appointment for right heel stage 3 pressure injury.Varicose veins of lower extremity (20 sources)Varicose veins of lower extremity; Translations: [Varicose veins of left lower extremity with othercomplications]02-59-4645TqmlllozZevys infection (20 sources)Disease caused by 2019-nCoV; Translations: [COVID-19]03-10-2024 Episodic Past or Other Problems Problem ClassificationProblemDateDocumented DateEpisodic/ChronicAcute and unspecified renal failure (20 sources)Acute renal failure syndrome; Translations: [Acute kidney failure, unspecified]Onset: 545336-88-5407RvmcfgmfGqewkppmg infection; unspecified site (20 sources)Bacteremia; Translations: [Bacteremia due to Pseudomonas]Onset: 463830-08-6649TvydzqlyAmxptjdvfaqdj of surgical procedures or medical care (1 source)Disruption of external operation (surgical) wound, 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, initial encounter; Translations: [Disruption of external operation (surgical) wound, 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, initial encounter]Onset: 06-06-2024 EpisodicGenitourinary symptoms and ill-defined conditions (20 sources)Retention of urine; Translations: [Retention of urine, unspecified] Onset: 963707-48-2992McfcdysaZlxhd aftercare (2 sources)USP (current) use of anticoagulants; Translations: [USP (current) use of anticoagulants]Onset: 32-11-9037WvszzfhsJlxhv aftercare (1 source)Encounter for other orthopedic aftercare; Translations: [Encounter for other orthopedic aftercare]Onset: 25-61-6422VovwdhwiUabpd connective tissue disease (5 sources)Muscle wasting and atrophy, 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, unspecified site; Translations: [MUSCLE WASTING ATROPHY NEC UNS SITE]Onset: 08-17-2021 EpisodicOther lower respiratory disease (7 sources)Hypoxemia; Translations: [Hypoxemia]Onset: 977496-18-3182 EpisodicScreening and history of mental health and substance abuse codes (20 sources)Ex-smoker; Translations: [Personal history of tobacco use]Onset: 034643-44-1958IfzptycmDwxwwpe on above:Quit smoking in 1979;Septicemia (except in labor) (20 sources)Sepsis; Translations: [Sepsis, unspecified organism]Onset: 418314-06-1776RpepxugbMmhz and subcutaneous tissue infections (20 sources)Cellulitis, unspecified; Translations: [Cellulitis]Onset: 07-12-2024 53-28-8121RqigdrszHvtazqnxkdbw (1 source)LOW BACK PAIN, UNSPECIFIED; Translations: [LOW BACK PAIN, UNSPECIFIED] Onset: 29-62-1942Uxtqgotxzdoa (1 source)Cough, unspecified type R05.9Unclassified (2 sources)Onset: 730160-89-0972Gjkceuw tract infections (20 sources)Urinary tract infection, site not specified; Translations: [Urinary tract infectious disease]Onset: 84-68-1778Oezidwlc Results Test NameValueInterpretationReference RangeFacilityBasophils Auto (Bld) [#/Vol] Ordered By: Sha Pepe on 61-30-3248Jcpfmghis (Bld) [#/Vol]0.1 10 3/uL0.0-0.1 [facility] HospitalBasophils/100 WBC Auto (Bld)Ordered By: Sha Pepe on 97-37-7452Oiwudlcip/100 WBC (Bld)0.8 %0.2-2.0[facility] HospitalEosinophils/100 WBC Auto (Bld)Ordered By: Sha Pepe on 19-84-2520Tuwyeppqqzq/100 WBC (Bld)2.7 %0.9-7.0[facility] Erythrocyte distribution width Auto (RBC) [Ratio]Ordered By: Sha Pepe on 66-42-6116Hlqbymsnzba distribution width (RBC) [Ratio]16.9 %High11.0-15.0 [facility] HospitalGlobulin Calc (S) [Mass/Vol]Ordered By: Sha Pepe on 46-63-1692Hmkulvzy (S) [Mass/Vol]3.7 g/dLOhio Valley Surgical HospitalGlomerular filtration rate (GFR) estimation in non- AmericanOrdered By: Sha Pepe on 63-32-0421RTU/1.73 sq M.predicted among non-blacks MDRD (S/P/Bld) [Vol rate/Area]28 mL/min/{1.73_m2}Low>=60 mL/min/1.73m 2FCommunity Regional Medical CenterHematocrit Auto (Bld) [Volume fraction]Ordered By: Sha Pepe on 09-75-9097Uoavdvodgz (Bld) [Volume fraction]26.0 %Low42.0-54.0 [facility] HospitalHemoglobin [Mass/volume] in BloodOrdered By: Sha Pepe on 95-81-1506Uusxzsplpo (Bld) [Mass/Vol]8.3 g/dLLow14.0-18.0 [facility] HospitalIron binding capacity [Mass/volume] in Serum or PlasmaOrdered By: Sha Pepe on 65-28-9314Tirl binding capacity [Mass/Vol] 177.0 ug/tGFtv283.0-450.0[facility] HospitalIron saturation [Mass Fraction] in Serum or PlasmaOrdered By: Sha Pepe on 38-13-4783Ogwb saturation [Mass fraction]6.8 %[facility] HospitalLeukocytes [#/volume] corrected for nucleated erythrocytes in Blood by Automated coun Ordered By: Sha Pepe on 95-68-9033MMM corrected for nucl RBC Auto (Bld) [#/Vol]7.1 10 3/uL4.0-11.0[facility] HospitalLymphocytes Auto (Bld) [#/Vol]Ordered By: Sha Pepe on 80-57-7187Hobpymehmbn (Bld) [#/Vol]1.0 10 3/uLLow1.2-3.8[facility] HospitalLymphocytes/100 WBC Auto (Bld)Ordered By: Sha Pepe on 11-56-3030Pvmwjeblpkl/100 WBC (Bld)14.0 %Low 20.5-60.0[facility] HospitalH Auto (RBC) [Entitic mass]Ordered By: Sha Pepe on 94-24-4767VNZ (RBC) [Entitic mass]28.3 pg25.9-34.0[facility] HospitalMCHC Auto (RBC) [Mass/Vol]Ordered By: Sha Pepe on 94-65-2815NMWI (RBC) [Mass/Vol]31.7 g/dL29.9-35.2FCommunity Regional Medical CenterMCV Auto (RBC) [Entitic vol]Ordered By: Sha Pepe on 87-39-5386KBF (RBC) [Entitic vol]89.3 fL80.0-94.0[facility] HospitalMonocytes Auto (Bld) [#/Vol]Ordered By: Sha Pepe on 79-78-5225Zjqacrueq (Bld) [#/Vol] 0.5 10 3/uL0.3-0.8[facility] HospitalMonocytes/100 WBC Auto (Bld) Ordered By: Sha Pepe on 13-57-3224Kjmxlnehy/100 WBC (Bld)6.8 %1.7-12.0 [facility] HospitalNeutrophils Auto (Bld) [#/Vol]Ordered By: Sha Pepe on 58-74-6421Vqjgwezuyuh (Bld) [#/Vol]5.3 10 3/uL1.4-6.5FCommunity Regional Medical CenterNeutrophils/100 WBC Auto (Bld)Ordered By: Sha Pepe on 81-43-5046Oguynuliela/100 WBC (Bld)75.6 %High43.0-75.0[facility] HospitalNo Panel InformationOrdered By: Sha Pepe on 13-77-337919.1 [facility]41.0 mg/dLHigh7.0-18.0[facility]8.6 mg/dL8.5-10.1FCommunity Regional Medical Center108 mmol/LHigh 98-107[facility]25.0 mmol/L21.0-32.0[facility]2.26 mg/dLHigh0.70-1.30[facility]34Low>=60 mL/min/1.73m 2FCommunity Regional Medical Center107 mg/xDJkea07-563PbiedfziaOhio Valley Surgical Hospital4.1 mmol/L3.5-5.1FCommunity Regional Medical Center141 mmol/V818-756IbcrgqbdmOhio Valley Surgical Hospital9.00 ng/mL8.60-58.90[facility]293.0 ng/mL26.0-388.0[facility] 10.864 u[iU]/mLHigh0.358-3.740[facility]2.4 mg/dL1.8-2.4 [facility]12.0 ug/dLLow65.0-175.0[facility]2.4 g/dLLow3.4-5.0[facility]0.2 10 3/uL 0.0-0.7FCommunity Regional Medical Center96 U/E34-626XtkurflxvOhio Valley Surgical Hospital16 U/L52-97GuycjibrgOhio [facility] Surgical Hospital17 U/M76-62ClzjkneazOhio Valley Surgical Hospital0.01 10 3/uL0.00-0.03[facility]0.1 %0.0-0.5 [facility]0.5 mg/dL0.2-1.0[facility]6.1 g/dLLow6.4-8.2FCommunity Regional Medical CenterPlatelet mean volume Auto (Bld) [Entitic vol]Ordered By: Sha Pepe on 96-01-1486Dexdnjbw mean volume (Bld) [Entitic vol]9.7 fL9.5-13.5FCommunity Regional Medical Center Platelets Auto (Bld) [#/Vol]Ordered By: Sha Pepe on 58-07-6823Qlbhniabq (Bld) [#/Vol]216 10 3/cY504-291BodnwyagfOhio Valley Surgical HospitalRBC Auto (Bld) [#/Vol]Ordered By: Sha Pepe on 59-43-9779JOU (Bld) [#/Vol]2.72 10 6/uLLow 4.70-6.10[facility] Hospitalerum or plasma albumin/globulin mass ratioOrdered By: Sha Pepe on 19-74-7802Rzkgxmc/Globulin [Mass ratio]0.6 {ratio}[facility] Valley Hospitalerum or plasma anion gap determination Ordered By: Sha Pepe on 53-86-9716Sqvoe gap [Moles/Vol]12.1 mmol/LFCommunity Regional Medical CenterBasophils Auto (Bld) [#/Vol]Ordered By: Clarence Schroeder on 72-39-3029Dvxlibjcp (Bld) [#/Vol]0.1 10 3/uL0.0-0.1FCommunity Regional Medical CenterBasophils/100 WBC Auto (Bld)Ordered By: Clarence Schroeder on 12-30-2024 Basophils/100 WBC (Bld)0.6 %0.2-2.0[facility] Eosinophils/100 WBC Auto (Bld)Ordered By: Clarence Schroeder on 12-30-2024 Eosinophils/100 WBC (Bld)1.9 %0.9-7.0[facility] Erythrocyte distribution width Auto (RBC) [Ratio]Ordered By: Clarence Schroeder on 90-51-3783Tpsaqeclboa distribution width (RBC) [Ratio]16.9 %High11.0-15.0 [facility] HospitalGlomerular filtration rate (GFR) estimation in non- AmericanOrdered By: Clarence Schroeder on 95-71-4897LCG/1.73 sq M.predicted among non-blacks MDRD (S/P/Bld) [Vol rate/Area]23 mL/min/{1.73_m2}Low>=60 mL/min/1.73m 2FCommunity Regional Medical CenterHematocrit Auto (Bld) [Volume fraction]Ordered By: Clarence Schroeder on 06-61-4475Rmgidusnqz (Bld) [Volume fraction] 24.0 %Low42.0-54.0[facility] HospitalHemoglobin [Mass/volume] in BloodOrdered By: Clarence Schroeder on 97-69-7868Orbgwkblph (Bld) [Mass/Vol]7.6 g/dLLow 14.0-18.0[facility] HospitalLeukocytes [#/volume] corrected for nucleated erythrocytes in Blood by Automated counOrdered By: Clarence Schroeder on 97-73-7692WOE corrected for nucl RBC Auto (Bld) [#/Vol]11.9 10 3/uLHigh4.0-11.0 [facility] HospitalLymphocytes Auto (Bld) [#/Vol]Ordered By: Clarence Schroeder on 06-48-6105Dzflqcngikz (Bld) [#/Vol]1.2 10 3/uL1.2-3.8[facility] HospitalLymphocytes/100 WBC Auto (Bld)Ordered By: Clarence Schroeder on 77-27-7939Mssxmfhlbkf/100 WBC (Bld)10.4 %Low20.5-60.0[facility] HospitalMCH Auto (RBC) [Entitic mass]Ordered By: Clarence Schroeder on 55-10-1658CCV (RBC) [Entitic mass]28.8 pg25.9-34.0[facility] HospitalMCHC Auto (RBC) [Mass/Vol]Ordered By: Clarence Schroeder on 12-55-3569EIXW (RBC) [Mass/Vol]31.7 g/dL29.9-35.2FCommunity Regional Medical CenterMCV Auto (RBC) [Entitic vol] Ordered By: Clarence Schroeder on 75-01-7391WCY (RBC) [Entitic vol]90.9 fL80.0-94.0 [facility] HospitalMonocytes Auto (Bld) [#/Vol]Ordered By: Clarence Schroeder on 10-82-2097Jdyuolwpl (Bld) [#/Vol]0.8 10 3/uL0.3-0.8[facility] HospitalMonocytes/100 WBC Auto (Bld)Ordered By: Clarence Schroeder on 12-30-2024 Monocytes/100 WBC (Bld)6.9 %1.7-12.0[facility] HospitalNeutrophils Auto (Bld) [#/Vol]Ordered By: Clarence Schroeder on 60-02-2230Dudsqyodsxz (Bld) [#/Vol]9.5 10 3/uLHigh1.4-6.5FCommunity Regional Medical CenterNeutrophils/100 WBC Auto (Bld)Ordered By: Clarence Newsometon on 10-47-7898Yewdxkrqlfi/100 WBC (Bld)79.9 %High43.0-75.0[facility] HospitalNo Panel InformationOrdered By: Clarence Alexandre on 20-06-0799GIK-[facility] HospitalNONE SEEN #/LPFNONE/RAREOhio Valley Surgical HospitalNone Seen #/HPFNone [facility] InstituteMALL #/HPFAbnormalHONORHEALTH REHABILITATION HOSPITALE [facility] HospitalNegativeNEG/TRACEBlanchard Valley Health System [facility] HospitalMALLAbnormalNEGATIVE [facility] HospitalCLEARCLEAROhio Valley Surgical HospitalLT. YELLOWYELLOWOhio Valley Surgical HospitalMODERATEAbnormalNEGATIVEOhio Valley Surgical HospitalNONE SEENBerger Hospital PositiveAbnormalNEGATIVEOhio [facility] Surgical Hospital6.05.0-9.0[facility]2-5 #/HPFAbnormal0-2FCommunity Regional Medical Center <=1.339Ewjjazuo8.005-1.025[facility]0.2 EU/dL0.2-1.0 [facility]5-10 #/HPFAbnormalNONE [facility]1.5 mmol/L0.4-2.0[facility]122.3 pg/mL Critically high4.0-76.1FCommunity Regional Medical Center4924.0 pg/mLCritically high<=1800.0[facility]16.5FCommunity Regional Medical Center44.0 mg/dLHigh7.0-18.0[facility]0.2 10 3/uL0.0-0.7 [facility]9.5 mg/dL8.5-10.1FCommunity Regional Medical Center97 mmol/QYcq74-350ElcowzbqaOhio Valley Surgical Hospital24.2 mmol/L21.0-32.0 [facility]2.66 mg/dLHigh0.70-1.30[facility]0.04 10 3/uLHigh0.00-0.03[facility]28Low >=60 mL/min/1.73m 2FCommunity Regional Medical Center0.3 %0.0-0.5FCommunity Regional Medical Center100 mg/nV23-621WwvhghftbOhio Valley Surgical Hospital4.7 mmol/L3.5-5.1FCommunity Regional Medical Center131 mmol/FLlq356-346UkbzohfpfOhio Valley Surgical HospitalPlatelet mean volume Auto (Bld) [Entitic vol]Ordered By: Clarence Schroeder on 80-05-4113Cibmyxnw mean volume (Bld) [Entitic vol]9.5 fL9.5-13.5 [facility] HospitalPlatelets Auto (Bld) [#/Vol]Ordered By: Clarence Schroeder on 24-25-5127Jzbwgsazb (Bld) [#/Vol]294 10 3/kY988-544KpkhdpjyzOhio Valley Surgical HospitalRBC Auto (Bld) [#/Vol]Ordered By: Clarence Schroeder on 27-52-1510QQX (Bld) [#/Vol]2.64 10 6/uLLow4.70-6.10[facility] Hospitalerum or plasma anion gap determinationOrdered By: Clarence Schroeder on 47-01-8065Yyxmf gap [Moles/Vol]14.5 mmol/LFCommunity Regional Medical CenterUrine Cultureon 03-82-9129Vdahdktc identified Cx Nom (U)NormalThe [facility] Comment on above:Performed By: #### CUU ####[facility] [address] [place] [address] USAYeast detection in urine sediment by light microscopyOrdered By: Clarence Schroeder on 63-92-3418Seuet LM Ql (Urine sed)SEEN AbnormalNONE SEENOhio Valley Surgical HospitalBasophils Auto (Bld) [#/Vol] Ordered By: Cristy Prince ([place]) on 45-77-0100Vzqnfhgqa (Bld) [#/Vol]0.1 10 3/uL0.0-0.1FCommunity Regional Medical CenterBasophils/100 WBC Auto (Bld)Ordered By: (Maki) Cristyvanita Livingstonon on 35-39-3513Unacdwxed/100 WBC (Bld)0.9 %0.2-2.0 [facility] HospitalEosinophils/100 WBC Auto (Bld)Ordered By: (Maki) Cristyvanita Prince on 40-08-7542Szirfmkuphg/100 WBC (Bld)2.8 %0.9-7.0 [facility] HospitalErythrocyte distribution width Auto (RBC) [Ratio]Ordered By: (Maki) Cristy Niki on 00-41-9495Yewzatgrtez distribution width (RBC) [Ratio]16.9 %High11.0-15.0[facility] HospitalGlobulin Calc (S) [Mass/Vol]Ordered By: (Maki) Cristy Niki on 89-57-4085Lfhayoff (S) [Mass/Vol]4.2 g/dLOhio Valley Surgical HospitalGlomerular filtration rate (GFR) estimation in non- AmericanOrdered By: (Maki) Cristyvanita Livingstonon on 81-61-7342OSD/1.73 sq M.predicted among non-blacks MDRD (S/P/Bld) [Vol rate/Area]51 mL/min/{1.73_m2}Low>=60 mL/min/1.73m 2FCommunity Regional Medical CenterHematocrit Auto (Bld) [Volume fraction]Ordered By: (Maki) Cristy Niki on 77-26-0492Vfqwvsqmfi (Bld) [Volume fraction]27.1 %Low42.0-54.0[facility] HospitalHemoglobin [Mass/volume] in BloodOrdered By: (Maki) Cristy Niki on 30-94-7971Fskybgpukr (Bld) [Mass/Vol]8.7 g/dLLow14.0-18.0 [facility] HospitalLaboratory - Chemistry and Chemistry - challengeOrdered By: (Maki) Cristy Niki on 44-29-4824Sfovstjpz Ql (U) NegativeNEGATIVEOhio Valley Surgical HospitalGlucose (U) [Mass/Vol]Negative NEGATIVEOhio Valley Surgical HospitalKetones Ql (U)NegativeNEGATIVEOhio Valley Surgical HospitalpH (U)5.5 [pH]5.0-9.0[facility] Specific gravity (U) [Rel density]<=1.530Ziippjdk9.005-1.025[facility] HospitalUrobilinogen Qn (U)0.2 {Raghu'U}/dL0.2-1.0[facility] HospitalAlbumin [Mass/Vol]2.7 g/dLLow3.4-5.0[facility] HospitalALP [Catalytic activity/Vol]143 U/GKieu94-736DqfcwbdprOhio Valley Surgical HospitalALT [Catalytic activity/Vol]30 U/A43-68HlmjebgpxOhio Valley Surgical Hospital AST [Catalytic activity/Vol]42 U/SVnpu71-64IracbwwocOhio Valley Surgical Hospital Bilirubin [Mass/Vol]0.5 mg/dL0.2-1.0[facility] HospitalCalcium [Mass/Vol]8.9 mg/dL8.5-10.1FCommunity Regional Medical CenterChloride [Moles/Vol] 97 mmol/ZWzh02-713PvnmxbddsOhio Valley Surgical HospitalCO2 [Moles/Vol]24.8 mmol/L 21.0-32.0[facility] HospitalCreatinine [Mass/Vol]1.33 mg/dLHigh 0.70-1.30[facility] HospitalGFR/1.73 sq M.predicted MDRD (S/P/Bld) [Vol rate/Area]mL/min/{1.73_m2}>=60 mL/min/1.73m 2FCommunity Regional Medical CenterGlucose [Mass/Vol]92 mg/pM19-339YbuvqsrfiOhio Valley Surgical HospitalPotassium [Moles/Vol]5.1 mmol/L3.5-5.1FCommunity Regional Medical CenterProtein [Mass/Vol] 6.9 g/dL6.4-8.2FUniversity Hospitals Beachwood Medical Centerodium [Moles/Vol]131 mmol/LLow 136-145[facility] HospitalUrea nitrogen [Mass/Vol]24.0 mg/dLHigh 7.0-18.0[facility] HospitalUrea nitrogen/Creatinine [Mass ratio] 18.0 mg/mgOhio Valley Surgical HospitalLaboratory - Hematology and Cell countsOrdered By: Cristy Prince ([place]) on 26-16-6758Ciucqvyb granulocytes/100 WBC (Bld)0.5 %0.0-0.5FCommunity Regional Medical CenterLaboratory - Specimen informationOrdered By: Cristy Prince ([place]) on 49-21-3235Dureonwpxw (U)SL CLOUDYCLEARFCommunity Regional Medical CenterColor (U)LT. YELLOWYELLOWOhio Valley Surgical HospitalLaboratory - UrinalysisOrdered By: (Glynn) Cristy Prince on 43-36-8038Vpkeuzimr esterase Test strip Ql (U)SMALLAbnormalNEGATIVEOhio Valley Surgical HospitalMucus Ql (Urine sed)NONE SEENNONE SEENOhio Valley Surgical HospitalNitrite Ql (U)NegativeNEGATIVEOhio Valley Surgical Hospital Protein Ql (U)NegativeNEG/TRACEOhio Valley Surgical HospitalLeukocytes [#/volume] corrected for nucleated erythrocytes in Blood by Automated coun Ordered By: (Glynn) Cristy Prince on 75-36-4917ZOE corrected for nucl RBC Auto (Bld) [#/Vol]8.1 10 3/uL4.0-11.0[facility] HospitalLymphocytes Auto (Bld) [#/Vol]Ordered By: (Glynn) Cristy Prince on 55-67-5662Weyboirqtfo (Bld) [#/Vol]1.2 10 3/uL1.2-3.8[facility] HospitalLymphocytes/100 WBC Auto (Bld)Ordered By: (Glynn) Cristy Prince on 45-13-6406Weuwwpetxhz/100 WBC (Bld)14.4 %Low20.5-60.0[facility] [place] [facility] Auto (RBC) [Entitic mass]Ordered By: (Glynn) Cristy Prince on 60-41-1739AXG (RBC) [Entitic mass]28.9 pg25.9-34.0[facility] Auto (RBC) [Mass/Vol]Ordered By: (Monisha Prince on 67-94-6975NUDM (RBC) [Mass/Vol] 32.1 g/dL29.9-35.2FCommunity Regional Medical CenterMCV Auto (RBC) [Entitic vol] Ordered By: (Glynn) Cristy Prince on 36-29-0648MAA (RBC) [Entitic vol]90.0 fL 80.0-94.0[facility] HospitalMonocytes Auto (Bld) [#/Vol]Ordered By: (Glynn) Cristy Prince on 96-33-0072Ocpqaztuw (Bld) [#/Vol]0.7 10 3/uL 0.3-0.8[facility] HospitalMonocytes/100 WBC Auto (Bld)Ordered By: Cristy Prince ([place]) on 99-79-0123Kiqnaywjv/100 WBC (Bld)8.6 %1.7-12.0 [facility] HospitalNeutrophils Auto (Bld) [#/Vol]Ordered By: (Glynn) Cristy Prince on 92-60-0948Wgdjkhxbmuz (Bld) [#/Vol]5.9 10 3/uL1.4-6.5 [facility] HospitalNeutrophils/100 WBC Auto (Bld)Ordered By: Cristy Prince ([place]) on 51-43-5343Xynkqepopbw/100 WBC (Bld)72.8 %43.0-75.0 [facility] HospitalNo Panel InformationOrdered By: Cristy Prince ([place]) on 16-47-3000Gapbx BacteriaSMALL #/HPFAbnormalNONE SEENOhio Valley Surgical HospitalUrine Culture ReflexedYE-[facility] HospitalUrine Microscopic ReviewYEParma Community General HospitalUrine Occult BloodNegativeNEGATIVEOhio Valley Surgical HospitalUrine Other CastsNONE SEEN #/LPFNONE SEENOhio Valley Surgical HospitalUrine Other CrystalsNone Seen #/HPFNone [facility] CenterUrine RBC0-2 #/HPF0-2FCommunity Regional Medical CenterUrine Squamous Epithelial CellsNONE SEEN #/LPFNONE/RARE [facility] HospitalUrine EPN57-74 #/HPFAbnormalNONE SEENOhio Valley Surgical HospitalYES-FRMCOhio Valley Surgical HospitalYESOhio Valley Surgical HospitalNONE SEEN #/LPFNONE/RAREOhio Valley Surgical Hospital NegativeNEG/TRACEOhio Valley Surgical HospitalNone Seen #/HPFNone Seen [facility] HospitalMALL #/HPFAbnormalNONE SEENBlanchard Valley Health System [facility] HospitalL CLOUDYCLEARFCommunity Regional Medical CenterNONE SEENNONE SEEN [facility] HospitalLT. YELLOWYELLOWOhio Valley Surgical Hospital0-2 #/HPF0-2FCommunity Regional Medical Center10-20 #/HPFAbnormalNONE SEEN [facility] HospitalMALLAbnormalNEGATIVEOhio Valley Surgical Hospital5.55.0-9.0[facility]<=1.779Vxbxxhic1.005-1.025 [facility]0.2 EU/dL0.2-1.0[facility] HospitalEosinophils # (Auto)0.2 10 3/uL0.0-0.7FCommunity Regional Medical Center Immature Granulocyte # (Auto)0.04 10 3/uLHigh0.00-0.03[facility] Surgical HospitalTroponin I High Ogwxwypstaq858.3 pg/mLCritically high4.0-76.1FCommunity Regional Medical CenterComment on above:RESULTS CALLED TO YARIEL Prince, PHARMACY OPERATIONS MANAGER @BY [facility] Noel, [facility] 2156CUT-OFF POINTS [...] IN CONJUNCTIONWITHOTHER DIAGNOSTIC AND CLINICAL INFORMATION.131.3 pg/mLCritically high4.0-76.1FCommunity Regional Medical Center2.7 g/dLLow3.4-5.0[facility]0.2 10 3/uL0.0-0.7FCommunity Regional Medical Center143 U/GDgxe41-323BsrkooecxOhio Valley Surgical Hospital30 U/N74-88LcfsdhlzzOhio Valley Surgical Hospital42 U/PQulq68-29DpitcsaefOhio Valley Surgical Hospital18.0[facility]0.04 10 3/uLHigh0.00-0.03[facility]24.0 mg/dLHigh7.0-18.0[facility]0.5 %0.0-0.5 [facility]8.9 mg/dL8.5-10.1FCommunity Regional Medical Center97 mmol/HSoc29-167JcacotivfOhio Valley Surgical Hospital24.8 mmol/L21.0-32.0 [facility]1.33 mg/dLHigh0.70-1.30[facility]>60>=60 mL/min/1.73m 2FCommunity Regional Medical Center92 mg/dL 74-106[facility]5.1 mmol/L3.5-5.1FCommunity Regional Medical Center131 mmol/UPqw092-212KsddhzomvOhio Valley Surgical Hospital0.5 mg/dL 0.2-1.0[facility]6.9 g/dL6.4-8.2FCommunity Regional Medical CenterPlatelet mean volume Auto (Bld) [Entitic vol]Ordered By: Cristy Prince ([place]) on 90-71-3012Tfvkyetk mean volume (Bld) [Entitic vol]10.6 fL 9.5-13.5FCommunity Regional Medical CenterPlatelets Auto (Bld) [#/Vol]Ordered By: Cristy Prince ([place]) on 86-88-3796Uuiesxiaw (Bld) [#/Vol]244 10 3/pO950-423 [facility] HospitalRBC Auto (Bld) [#/Vol]Ordered By: Cristy Prince ([place]) on 39-24-2600UDI (Bld) [#/Vol]3.01 10 6/uLLow4.70-6.10[facility] Hospitalerum or plasma albumin/globulin mass ratioOrdered By: Cristy Prince ([place]) on 64-39-5849Ezgadar/Globulin [Mass ratio]0.6 {ratio} [facility] CenterSerum or plasma anion gap determinationOrdered By: ([place]nn) Cristy Prince on 56-03-0353Pbnrd gap [Moles/Vol]14.3 mmol/L [facility] HospitalUrine Cultureon 76-46-8437Kvlwtikf identified Cx Nom (U)ORGANISM: Bibiana albicans (O:CANALB) Swoope Count >100,000 PERFORMED BY: [facility] [address] [place] [address] PATHOLOGIST EXPLOSIVE ORDNANCE TECHNICIAN MARY SONI M.D.NormalThe Unc Health Physician GroupComment on above: Performed By: #### CUU ####[address] [address] USAUrine cultureOrdered By: Liliana Miller on 98-62-5937Xgfgqgos identified Cx Nom (U)Bibiana albicansAbHolzer Medical Center – JacksonYeast detection in urine sediment by light microscopy Ordered By: (Monisha Muniz Niki on 42-56-9021Ddycq LM Ql (Urine sed)SEEN AbnormalNONE [facility] Private HospitalComment on above:Many budding yeastModerate HyphaeBasophils [#/volume] in Blood by Automated countOrdered By: Michele Knight on 60-35-7401Dldmpuxni (Bld) [#/Vol]0.0 10*3/uLNormal0.0-0.2 [facility] HospitalComment on above:Result Comment: PERFORMED BY:[address] [place], [place] [phone] MEDICAL DIRECTORMARY SONI M.D.Performed By: #### CBC ####[address] [address] [place] Basophils/100 leukocytes in Blood by Automated countOrdered By: Michele Knight on 90-13-2649Gkztbrgop/100 WBC (Bld)0.7 %Normal.[facility] Comment on above:Performed By: #### CBC ####[address] [address] USAComplete Blood Count Auto Diffon 12-18-2024 Mean Corpuscular HGB Conc32.6 g/kUAlycgc37.5-35.6[facility] Comment on above:Performed By: #### CBC ####[address] USANRBC%0.0 /100{WBC}Normal0-0.5The Unc Health Physician GroupComment on above:Performed By: #### CBC ####[address] USAWhite Blood Count3.6 [CFU]/mL Low4.1-10.5The Unc Health Physician GroupComment on above:Performed By: #### CBC ####[place] [address] [place] Eosinophils [#/volume] in Blood by Automated countOrdered By: Michele Eugene on 73-66-7001Spykorgbnha (Bld) [#/Vol]0.2 10*3/uLNormal0.0-0.45Ohio [facility] Surgical HospitalComment on above:Performed By: #### CBC ####[address] USAEosinophils/100 leukocytes in Blood by Automated countOrdered By: Michele Eugene on 31-19-3191Sdtqmvpewuw/100 WBC (Bld)6.5 %Normal.[facility] Surgical HospitalComment on above:Performed By: #### CBC ####[place] [address] USAErythrocyte distribution width [Ratio] by Automated countOrdered By: Michele Knight on 72-20-6842Nglxcyskdwg distribution width (RBC) [Ratio]18.1 %High 12.0-14.8[facility] Surgical HospitalComment on above:Performed By: #### CBC ####[address] [place] Erythrocytes [#/volume] in Blood by Automated countOrdered By: Michele Knight on 84-43-1935AEF (Bld) [#/Vol]3.00 10*6/uLLow3.90-5.60[facility] Surgical HospitalComment on above:Performed By: #### CBC ####[address] USAHematocrit [Volume Fraction] of Blood by Automated countOrdered By: Michele Knight on 51-35-5390Yvveibrwjo (Bld) [Volume fraction]26.3 %Low38.8-50.0[facility] Surgical HospitalComment on above: Performed By: #### CBC ####[address] USAHemoglobin [Mass/volume] in BloodOrdered By: Michele Knight on 46-09-5150Qwqmcqsrqe (Bld) [Mass/Vol]8.6 g/dLLow13.0-17.0[facility] HospitalComment on above:Performed By: #### CBC ####[address] USALeukocytes [#/volume] corrected for nucleated erythrocytes in Blood by Automated counOrdered By: Michele Knight on 56-76-6875HHQ corrected for nucl RBC Auto (Bld) [#/Vol]3.6 10*3/uLLow4.1-10.5FCommunity Regional Medical CenterLeukocytes [#/volume] in Blood by Automated countOrdered By: Michele Knight on 74-46-6329ENX (Bld) [#/Vol] 3.6 10*3/uLLow4.1-10.5FCommunity Regional Medical CenterComment on above: Performed By: #### CBC ####[address] USALymphocytes [#/volume] in Blood by Automated count Ordered By: Michele Knight on 21-96-0432Adtpbmdxomr (Bld) [#/Vol]0.7 10*3/uLLow 1.00-4.8[facility] Surgical HospitalComment on above:Performed By: #### CBC ####[address] [place] Lymphocytes/100 leukocytes in Blood by Automated countOrdered By: Michele Knight on 49-86-5641Dvyqrycamee/100 WBC (Bld)18.6 %Normal.[facility] Surgical HospitalComment on above:Performed By: #### CBC ####[address] [facility]ENTERMCH [Entitic mass] by Automated count Ordered By: Michele Knight on 96-12-8077BON (RBC) [Entitic mass]28.6 pgNormal 27.5-35.2FCommunity Regional Medical CenterComment on above:Performed By: #### CBC ####[address] MCHC Auto (RBC) [Mass/Vol]Ordered By: Michele Knight on 83-45-5813PYAR (RBC) [Mass/Vol]32.6 g/dL32.5-35.6FCommunity Regional Medical CenterMCV [Entitic volume] by Automated countOrdered By: Michele Knight on 83-46-4351NPA (RBC) [Entitic vol]87.8 mAPrdvdn58.5-101Ohio Valley Surgical HospitalComment on above:Performed By: #### CBC ####[address] USAMonocytes [#/volume] in Blood by Automated count Ordered By: Michele Knight on 78-76-3040Gqxezpmhw (Bld) [#/Vol]0.3 10*3/uLNormal 0.0-0.8[facility] Surgical HospitalComment on above:Performed By: #### CBC ####[address] [place] Monocytes/100 leukocytes in Blood by Automated countOrdered By: Michele Knight on 62-55-5171Rprigzegp/100 WBC (Bld)8.6 %Normal.[facility] Comment on above:Performed By: #### CBC ####[address] USANeutrophils [#/volume] in Blood by Automated countOrdered By: Michele Knight on 82-03-4592Fawjhcbtysq (Bld) [#/Vol]2.4 10*3/uL Normal1.8-7.7FCommunity Regional Medical CenterComment on above:Performed By: #### CBC ####[address] [address] USANeutrophils/100 leukocytes in Blood by Automated countOrdered By: Michele Knight on 10-23-0209Ubbgqjhqbxa/100 WBC (Bld)65.6 %Normal.[facility] HospitalComment on above:Performed By: #### CBC ####[address] [address] USANucleated erythrocytes [Presence] in Blood by Automated countOrdered By: Michele Knight on 12-18-2024 Nucleated RBC Auto Ql (Bld)0.0 /100{WBC}0-0.5FCommunity Regional Medical Center Platelet mean volume [Entitic volume] in Blood by Automated countOrdered By: Michele Knight on 60-04-4124Keaxvhrc mean volume (Bld) [Entitic vol]7.4 fLNormal 6.6-10.1FCommunity Regional Medical CenterComment on above:Performed By: #### CBC ####[address] [address] [place] Platelets [#/volume] in Blood by Automated countOrdered By: Michele Knight on 06-32-8339Fxczomozm (Bld) [#/Vol]262 10*3/kXNnfqwc737-011HsloktlhwOhio Valley Surgical HospitalComment on above:Performed By: #### CBC ####[address] [address] USABasic Metabolic Panelon 21-60-0894Soovipaeho Clr Calc Dceqgdye19.08[facility] Comment on above:Result Comment: PERFORMED BY:[address] [place], [place] [phone] MEDICAL DIRECTORMARY SONI M.D.Performed By: #### BMP, CBC ####[address] [address] USAGFR/1.73 sq M.predicted MDRD (S/P/Bld) [Vol rate/Area]mL/min/{1.73_m2}NormalThe Unc Health [facility] Group Comment on above:Performed By: #### BMP, CBC ####[address] [address] USACalcium [Mass/volume] in Serum or PlasmaOrdered By: Akash Mccartney on 21-73-8028Cvifwyo [Mass/Vol]8.4 mg/dL Low8.6-10.3FCommunity Regional Medical CenterComment on above:Performed By: #### BMP, CBC ####[address] [address] USACapillary blood glucose measurement by glucometer (mass/volume)Ordered By: Akash Mccartney on 83-52-6823Hngvmzy [Mass/Vol]108 mg/dLNormalOhio Valley Surgical HospitalComment on above:Random Glucose Reference Range is [...] Serum or PlasmaOrdered By: Akash Mccartney on 65-22-3269TK7 [Moles/Vol]26.3 mmol/L Ttubbu57.0-31.0[facility] Surgical HospitalComment on above:Performed By: #### BMP, CBC ####[address] [address] USAChloride [Moles/volume] in Serum or PlasmaOrdered By: Akash Mccartney on 67-09-1333Mmzthheo [Moles/Vol]103 mmol/GGizval88-605OufkbgurtOhio Valley Surgical HospitalComment on above:Performed By: #### BMP, CBC ####[address] [address] [facility] Complete Blood Count Auto Diffon 17-39-8174Pzrnkcixy (Bld) [#/Vol]0.0 10*3/uL Normal0.0-0.2The Unc Health Physician GroupComment on above:Result Comment: PERFORMED BY:[address] [place], [place] [phone] MEDICAL DIRECTORMARY SONI M.D.Performed By: #### BMP, CBC ####[address] [address] USABasophils/100 WBC (Bld)0.8 %Normal.The Unc Health Physician GroupComment on above:Performed By: #### BMP, CBC ####[address] [address] USAEosinophils (Bld) [#/Vol]0.2 10*3/uLNormal 0.0-0.45The Unc Health Physician GroupComment on above:Performed By: #### BMP, CBC ####[address] [address] [place] Eosinophils/100 WBC (Bld)6.2 %Normal.The Un[facility] Health Physician GroupComment on above:Performed By: #### BMP, CBC ####[address] [address] USAErythrocyte distribution width (RBC) [Ratio]18.1 % High12.0-14.8The Un[facility] Health Physician GroupComment on above:Performed By: #### BMP, CBC ####[address] [address] USAHematocrit (Bld) [Volume fraction]24.1 %Low38.8-50.0The Unc Health Physician GroupComment on above:Performed By: #### BMP, CBC ####[address] [address] USAHemoglobin (Bld) [Mass/Vol]7.9 g/dLLow 13.0-17.0The Unc Health Physician GroupComment on above:Performed By: #### BMP, CBC ####[place] [address] [place] Lymphocytes (Bld) [#/Vol]0.6 10*3/uLLow1.00-4.8[facility] Comment on above:Performed By: #### BMP, CBC ####[place] [address] USALymphocytes/100 WBC (Bld)17.9 %Normal. The Unc Health Physician GroupComment on above:Performed By: #### BMP, CBC ####[address] StreetH (RBC) [Entitic mass]29.0 ldGnwonk11.5-35.2The [facility] Health Physician GroupComment on above:Performed By: #### BMP, CBC ####[address]V (RBC) [Entitic vol]87.9 rYIrbffb86.5-101 The Unc Health Physician GroupComment on above:Performed By: #### BMP, CBC ####[place] [address] USAMean Corpuscular HGB Conc33.0 g/nXUdgmcd23.5-35.6The [facility] Health Physician GroupComment on above:Performed By: #### BMP, CBC ####[place] [address] USAMonocytes (Bld) [#/Vol]0.4 10*3/uLNormal 0.0-0.8The [facility] Health Physician GroupComment on above:Performed By: #### BMP, CBC ####[id number] [place] Monocytes/100 WBC (Bld)10.4 %Normal.The Un[facility] Health Physician GroupComment on above:Performed By: #### BMP, CBC ####[place] [address] USANeutrophils (Bld) [#/Vol]2.2 10*3/uLNormal1.8-7.7The [facility] Health Physician GroupComment on above:Performed By: #### BMP, CBC ####[place] [address] [place] Neutrophils/100 WBC (Bld)64.7 %Normal.The Un[facility] Health Physician GroupComment on above:Performed By: #### BMP, CBC ####[place] [address] USANRBC%0.1 /100{WBC}Normal0-0.5The Unc Health Physician GroupComment on above:Performed By: #### BMP, CBC ####[place] [address] USAPlatelet mean volume (Bld) [Entitic vol]7.3 fLNormal6.6-10.1The Un[facility] Health Physician GroupComment on above: Performed By: #### BMP, CBC ####[place] [address] USAPlatelets (Bld) [#/Vol]195 10*3/wKDikxdt819-678Ohm Unc Health Physician GroupComment on above:Performed By: #### BMP, CBC ####[place] [address] USARBC (Bld) [#/Vol]2.74 10*6/uLLow3.90-5.60The [facility] Health Physician GroupComment on above:Performed By: #### BMP, CBC ####[place] [address] USAWBC (Bld) [#/Vol]3.4 10*3/uLLow4.1-10.5The Un[facility] Health Physician GroupComment on above:Performed By: #### BMP, CBC ####[place] [address] USAWhite Blood Count3.4 [CFU]/mLLow4.1-10.5The Un[facility] Health Physician GroupComment on above:Performed By: #### BMP, CBC ####[place] [address] USACreatinine [Mass/volume] in Serum or PlasmaOrdered By: Akash Mccartney on 25-44-5817Kqudnpwudx [Mass/Vol]1.20 mg/dLNormal0.70-1.30[facility] Surgical HospitalComment on above:Performed By: #### BMP, CBC ####[facility] [address] [place] [address] [place] Glomerular filtration rate [Volume Rate/Area] in Serum, Plasma or Blood by CreatinineOrdered By: Akash Mccartney on 13-14-8703Xheafchsee filtration rate [Volume Rate/Area] in Serum, Plasma or Blood by Creatinine> 60.0 mL/Min [facility] HospitalGlucose Poct Glucometerson 54-88-7108Yebozod5 Glu2: Cleaned [facility] County Physician GroupComment on above:Result Comment: PERFORMED BY:[address] [place], [place] [phone] MEDICAL MARY KATE SONI M.D.Performed By: #### GLULS ####Point of Care testing,Glucose [Mass/volume] in Serum or PlasmaOrdered By: Akash Mccartney on 11-35-7536Wnuduzl [Mass/Vol]84 mg/dL Sfzyje75-731DxhanmgdlOhio Valley Surgical HospitalComment on above:ADA recommended reference rangeRandom Glucose [...] recommended reference rangePerformed By: #### BMP, CBC ####[facility] [address] [place] [address] USANo Panel InformationOrdered By: Akash Mccartney on 12-17-2024 Bedside Glucose CommentGlu2: cleaned [facility] HospitalGlu2: cleaned [facility] HospitalPharmacy Creatinine Clearance (Chem47.08[facility]47.08[facility] HospitalPotassium [Moles/volume] in Serum or PlasmaOrdered By: Akash Mccartney on 83-87-2084Nkgbqrpui [Moles/Vol]3.8 mmol/LNormal3.5-5.1FCommunity Regional Medical CenterComment on above:Performed By: #### BMP, CBC ####[address] [place] [address] USASerum or plasma anion gap determinationOrdered By: Akash Mccartney on 61-87-4825Oimnj gap [Moles/Vol]9.5 mmol/LNormal6.0-15.0[facility] HospitalComment on above:Performed By: #### BMP, CBC ####[address] [place] [address] USASodium [Moles/volume] in Serum or PlasmaOrdered By: Akash Mccartney on 18-65-0683Dvhsax [Moles/Vol]135 mmol/XKjm684-129AzntmjpkcOhio Valley Surgical HospitalComment on above:Performed By: #### BMP, CBC ####[address] [address] USAUrea nitrogen [Mass/volume] in Serum or PlasmaOrdered By: Akash Mccartney on 41-33-1297Aibz nitrogen [Mass/Vol]20 mg/dLNormal7-25[facility] HospitalComment on above:Performed By: #### BMP, CBC ####[address] [place] [address] USAGlucose Poct Glucometerson 81-79-8750Sgahbpq [Mass/Vol]157 mg/dLNoCritical access hospital Physician GroupComment on above:Result Comment: Random Glucose Reference Range is dependent on time and content of last meal. Glucose of more than 200 mg/dL in a nonstressed, ambulatory subject supports the diagnosis of Diabetes Mellitus.PERFORMED BY:[address] [place], [place] [phone] MEDICAL DIRECTORMARIO S NAE M.D.Performed By: #### GLULS ####Point of Care testing,Alanine aminotransferase [Enzymatic activity/volume] in Serum or PlasmaOrdered By: Akash Mccartney on 12-15-2024 ALT [Catalytic activity/Vol]10 U/LNormal7-52[facility] Comment on above:Performed By: #### CMP, CBC ####[address] [place] [address] USAAlbumin [Mass/volume] in Serum or Plasma by Bromocresol green (BCG) dye binding methoOrdered By: Akash Mccartney on 99-72-0777Xekydec BCG dye [Mass/Vol]3.4 g/dLLow3.5-5.7FCommunity Regional Medical CenterAlkaline phosphatase [Enzymatic activity/volume] in Serum or PlasmaOrdered By: Akash Mccartney on 63-11-1964EHD [Catalytic activity/Vol]99 U/YJtanky09-428GzatvrrkfOhio Valley Surgical HospitalComment on above:Performed By: #### CMP, CBC ####[address] [place] USAAspartate aminotransferase [Enzymatic activity/volume] in Serum or PlasmaOrdered By: Akash Mccartney on 12-15-2024 AST [Catalytic activity/Vol]23 U/DBxnnmh02-83TnhvekmmdOhio Valley Surgical Hospital Comment on above:Performed By: #### CMP, CBC ####[address] USABilirubin.total [Mass/volume] in Serum or PlasmaOrdered By: Akash Mccartney on 71-66-1355Bofpkjhkt [Mass/Vol]0.8 mg/dLNormal0.3-1.0[facility] HospitalComment on above:Performed By: #### CMP, CBC ####[address] [place] [address] USAComplete Blood Count Auto Diffon 03-07-2556Epnyswvrm (Bld) [#/Vol] 0.0 10*3/uLNormal0.0-0.2The [facility] Health Physician GroupComment on above:Result Comment: PERFORMED BY:[address] [place], [place] [phone] MEDICAL DIRECTORMARY SONI M.D.Performed By: #### CMP, CBC ####[address] [address] USABasophils/100 WBC (Bld)0.5 %Normal.[facility] Comment on above:Performed By: #### CMP, CBC ####[address] [address] USAEosinophils (Bld) [#/Vol]0.2 10*3/uL Normal0.0-0.45The [facility] Health Physician GroupComment on above:Performed By: #### CMP, CBC ####[address] [address] USAEosinophils/100 WBC (Bld)4.6 %Normal.The [facility] Health Physician GroupComment on above:Performed By: #### CMP, CBC ####[address] [address] USAErythrocyte distribution width (RBC) [Ratio]18.3 % High12.0-14.8The [facility] Health Physician GroupComment on above:Performed By: #### CMP, CBC ####[address] [address] USAHematocrit (Bld) [Volume fraction]29.0 %Low38.8-50.0The [facility] Health Physician GroupComment on above:Performed By: #### CMP, CBC ####[address] [address] USAHemoglobin (Bld) [Mass/Vol]9.5 g/dLLow 13.0-17.0The [facility] Health Physician GroupComment on above:Performed By: #### CMP, CBC ####[address] [address] [place] Lymphocytes (Bld) [#/Vol]0.4 10*3/uLLow1.00-4.8[facility] Comment on above:Performed By: #### CMP, CBC ####[address] USALymphocytes/100 WBC (Bld)7.7 %Normal. The [facility] Health Physician GroupComment on above:Performed By: #### CMP, CBC ####[address] StreetMCH (RBC) [Entitic mass]29.0 nxJesfjj87.5-35.2The [facility] Health Physician GroupComment on above:Performed By: #### CMP, CBC ####[address] StreetMCV (RBC) [Entitic vol]88.4 mAXsjatk24.5-101 The [facility] Health Physician GroupComment on above:Performed By: #### CMP, CBC ####[place] [address] USAMean Corpuscular HGB Conc32.8 g/uBKcibfi86.5-35.6The [facility] Health Physician GroupComment on above:Performed By: #### CMP, CBC ####[place] [address] USAMonocytes (Bld) [#/Vol]0.2 10*3/uLNormal 0.0-0.8The [facility] Health Physician GroupComment on above:Performed By: #### CMP, CBC ####[address] [place] Monocytes/100 WBC (Bld)3.3 %Normal.The [facility] Health Physician GroupComment on above:Performed By: #### CMP, CBC ####[address] USANeutrophils (Bld) [#/Vol]4.4 10*3/uLNormal1.8-7.7The [facility] Health Physician GroupComment on above:Performed By: #### CMP, CBC ####[address] [place] Neutrophils/100 WBC (Bld)83.9 %Normal.The [facility] Health Physician GroupComment on above:Performed By: #### CMP, CBC ####[place] [address] USANRBC%0.2 /100{WBC}Normal0-0.5The [facility] Health Physician GroupComment on above:Performed By: #### CMP, CBC ####[place] [address] USAPlatelet mean volume (Bld) [Entitic vol]7.5 fLNormal6.6-10.1The [facility] Health Physician GroupComment on above: Performed By: #### CMP, CBC ####[place] [address] USAPlatelets (Bld) [#/Vol]280 10*3/uKCeklmk248-249Xxa [facility] Physician GroupComment on above:Performed By: #### CMP, CBC ####[place] [address] USARBC (Bld) [#/Vol]3.27 10*6/uLLow3.90-5.60The [facility] Health Physician GroupComment on above:Performed By: #### CMP, CBC ####[place] [address] USAWBC (Bld) [#/Vol]5.2 10*3/uLNormal4.1-10.5The [facility] Health Physician GroupComment on above:Performed By: #### CMP, CBC ####[place] [address] USAWhite Blood Count5.2 [CFU]/mLNormal4.1-10.5The [facility] Health Physician GroupComment on above:Performed By: #### CMP, CBC ####[place] [address] USAComprehensive Metabolic Panelon 14-77-2546Unmqyqt [Mass/Vol]3.4 g/dLLow3.5-5.7The [facility] Health Physician GroupComment on above: Performed By: #### CMP, CBC ####[address] [address] USAAnion gap [Moles/Vol]10.3 mmol/LNormal6.0-15.0The [facility] Health Physician GroupComment on above:Performed By: #### CMP, CBC ####[address] [address] USACalcium [Mass/Vol]8.9 mg/dLNormal8.6-10.3The [facility] Health Physician GroupComment on above: Performed By: #### CMP, CBC ####[address] [address] USAChloride [Moles/Vol]103 mmol/BZzfyux83-203Kqe [facility] Physician GroupComment on above:Performed By: #### CMP, CBC ####[address] USACO2 [Moles/Vol]26.6 mmol/TYocjvw77.0-31.0The [facility] Health Physician GroupComment on above:Performed By: #### CMP, CBC ####[address] USACreatinine [Mass/Vol]1.21 mg/dLNormal0.70-1.30The [facility] Health Physician GroupComment on above:Performed By: #### CMP, CBC ####[address] [address] [place] Creatinine Clr Calc Yhmcxski61.69NormalThe Unc Health Physician GroupComment on above:Result Comment: PERFORMED BY:[address] [place], [place] [phone] MEDICAL MARY KATE SONI M.D.Performed By: #### CMP, CBC ####[address] [address] USAGFR/1.73 sq M.predicted MDRD (S/P/Bld) [Vol rate/Area]59.409 mL/min/{1.73_m2}NormalThe Unc Health Physician GroupComment on above:Performed By: #### CMP, CBC ####[address] [place] [address] USAGlucose [Mass/Vol]83 mg/yHJfycoq22-664Ffm [facility] Physician GroupComment on above:Result Comment: Random Glucose Reference Range is dependent on time and content of last meal. Glucose of more than 200 mg/dL in a nonstressed, ambulatory subject supports the diagnosis of Diabetes Mellitus. ADA recommended reference rangePerformed By: #### CMP, CBC ####[address] [address] USAPotassium [Moles/Vol] 3.9 mmol/LNormal3.5-5.1The [facility] HospitalComment on above:Performed By: #### CMP, CBC ####[place] [id number] USASodium [Moles/Vol]136 mmol/WSwuugw603-724Xro [facility] HospitalComment on above:Performed By: #### CMP, CBC ####[place] [id number] USAUrea nitrogen [Mass/Vol]16 mg/dL Normal7-25The [facility] HospitalComment on above:Performed By: #### CMP, CBC ####[place] [phone] [place] Protein [Mass/volume] in Serum or PlasmaOrdered By: Akash Mccartney on 88-32-1291Nnnhnon [Mass/Vol]6.6 g/dLNormal6.4-8.9[facility] HospitalComment on above:Performed By: #### CMP, CBC ####[place] [phone] USASerum globulin measurement by calculation (mass/volume)Ordered By: Akash Mccartney on 86-98-0922Lbbvhzqf (S) [Mass/Vol]3.2 g/dLNormalOhio Valley Surgical HospitalComment on above: Performed By: #### CMP, CBC ####[place] [phone] USASerum or plasma albumin/globulin mass ratioOrdered By: Akash Mccartney on 55-30-1812Wjtxqrk/Globulin [Mass ratio]1.1 {ratio} NormalOhio Valley Surgical HospitalComment on above:Performed By: #### CMP, CBC ####[place] [id number] [facility] Complete Blood Count Auto Diffon 07-77-9336Kiamoxoxo (Bld) [#/Vol]0.0 10*3/uL Normal0.0-0.2The [facility] Health Physician GroupComment on above:Result Comment: PERFORMED BY:[address] [place], [place] [phone] MEDICAL DIRECTORMARY SONI M.D.Performed By: #### CBC, CMP ####[place] [address] USABasophils/100 WBC (Bld)0.7 %Normal.The [facility] Health Physician GroupComment on above:Performed By: #### CBC, CMP ####[place] [address] USAEosinophils (Bld) [#/Vol]0.3 10*3/uLNormal 0.0-0.45The [facility] HospitalComment on above:Performed By: #### CBC, CMP ####[place] [address] [place] Eosinophils/100 WBC (Bld)5.4 %Normal.The [facility] Health Physician GroupComment on above:Performed By: #### CBC, CMP ####[place] [address] USAErythrocyte distribution width (RBC) [Ratio]18.3 % High12.0-14.8The [facility] Health Physician GroupComment on above:Performed By: #### CBC, CMP ####[place] [address] USAHematocrit (Bld) [Volume fraction]25.1 %Low38.8-50.0The [facility] Health Physician GroupComment on above:Performed By: #### CBC, CMP ####[place] [address] USAHemoglobin (Bld) [Mass/Vol]8.2 g/dLLow 13.0-17.0The [facility] Health Physician GroupComment on above:Performed By: #### CBC, CMP ####[place] [address] [place] Lymphocytes (Bld) [#/Vol]1.2 10*3/uLNormal1.00-4.8The [facility] Comment on above:Performed By: #### CBC, CMP ####[place] [address] USALymphocytes/100 WBC (Bld)22.4 %Normal. The [facility] Health Physician GroupComment on above:Performed By: #### CBC, CMP ####[place] [address] USAMCH (RBC) [Entitic mass]28.5 akOpaaop38.5-35.2The [facility] Health Physician GroupComment on above:Performed By: #### CBC, CMP ####[place] [address] USAMCV (RBC) [Entitic vol]87.6 xICveiis28.5-101 The [facility] Health Physician GroupComment on above:Performed By: #### CBC, CMP ####[place] [address] USAMean Corpuscular HGB Conc32.5 g/gRYskqxt23.5-35.6The [facility] Health Physician GroupComment on above:Performed By: #### CBC, CMP ####[place] [address] USAMonocytes (Bld) [#/Vol]0.5 10*3/uLNormal 0.0-0.8The [facility] Health Physician GroupComment on above:Performed By: #### CBC, CMP ####[place] [address] [place] Monocytes/100 WBC (Bld)8.9 %Normal.The [facility] Health Physician GroupComment on above:Performed By: #### CBC, CMP ####[address] [address] USANeutrophils (Bld) [#/Vol]3.3 10*3/uLNormal1.8-7.7The [facility] Health Physician GroupComment on above:Performed By: #### CBC, CMP ####[place] [address] [place] Neutrophils/100 WBC (Bld)62.6 %Normal.The [facility] Health Physician GroupComment on above:Performed By: #### CBC, CMP ####[place] [address] USANRBC%0.1 /100{WBC}Normal0-0.5The [facility] Health Physician GroupComment on above:Performed By: #### CBC, CMP ####[place] [address] USAPlatelet mean volume (Bld) [Entitic vol]7.7 fLNormal6.6-10.1The [facility] Health Physician GroupComment on above: Performed By: #### CBC, CMP ####[address] [address] USAPlatelets (Bld) [#/Vol]230 10*3/oSBfaaup903-399Ztu [facility] Health Physician GroupComment on above:Performed By: #### CBC, CMP ####[place] [address] USARBC (Bld) [#/Vol]2.87 10*6/uLLow3.90-5.60The [facility] Health Physician GroupComment on above:Performed By: #### CBC, CMP ####[address] [address] USAWBC (Bld) [#/Vol]5.3 10*3/uLNormal4.1-10.5The [facility] Health Physician GroupComment on above:Performed By: #### CBC, CMP ####[place] [address] USAWhite Blood Count5.3 [CFU]/mLNormal4.1-10.5The [facility] Health Physician GroupComment on above:Performed By: #### CBC, CMP ####[place] [address] USAComprehensive Metabolic Panelon 73-56-1804Bwuyeiv [Mass/Vol]3.1 g/dLLow3.5-5.7The [facility] Health Physician GroupComment on above: Performed By: #### CBC, CMP ####[place] [address] USAAlbumin/Globulin [Mass ratio]1.1 {ratio}NormalThe [facility] Health Physician GroupComment on above:Performed By: #### CBC, CMP ####[place] [address] USAALP [Catalytic activity/Vol]85 U/MZxduju27-161Nzt [facility] Health Physician GroupComment on above:Performed By: #### CBC, CMP ####[place] [address] USAALT [Catalytic activity/Vol]10 U/LNormal7-52 The [facility] Health Physician GroupComment on above:Performed By: #### CBC, CMP ####[place] [phone] USAAnion gap [Moles/Vol]11.5 mmol/LNormal6.0-15.0The [facility] Health Physician GroupComment on above:Performed By: #### CBC, CMP ####[place] [address] USAAST [Catalytic activity/Vol]25 U/ACqjwcx30-66Fgm [facility] Health Physician GroupComment on above:Performed By: #### CBC, CMP ####[place] [address] [place] Bilirubin [Mass/Vol]0.6 mg/dLNormal0.3-1.0The [facility] Health Physician GroupComment on above:Performed By: #### CBC, CMP ####[place] [address] USACalcium [Mass/Vol]8.3 mg/dLLow8.6-10.3The [facility] Health Physician GroupComment on above:Performed By: #### CBC, CMP ####[address] [address] [place] Chloride [Moles/Vol]104 mmol/PFgmowv43-469Fav [facility] Health Physician GroupComment on above:Performed By: #### CBC, CMP ####[place] [address] [place] [address] USACO2 [Moles/Vol]25.5 mmol/MVfmrmk64.0-31.0The [facility] Health Physician GroupComment on above:Performed By: #### CBC, CMP ####[address] [address] [place] Creatinine [Mass/Vol]1.15 mg/dLNormal0.70-1.30The [facility] Comment on above:Performed By: #### CBC, CMP ####[address] [address] USACreatinine Clr Calc Jgnkarwv59.10 NormalThe Unc Health Physician GroupComment on above:Result Comment: PERFORMED BY:[address] [place], [place] [phone] MEDICAL DIRECTORMARY SONI M.D.Performed By: #### CBC, CMP ####[address] [address] [place] GFR/1.73 sq M.predicted MDRD (S/P/Bld) [Vol rate/Area]mL/min/{1.73_m2}NormalThe [facility] Health Physician GroupComment on above:Performed By: #### CBC, CMP ####[address] [address] [place] Globulin (S) [Mass/Vol]2.8 g/dLNormalThe [facility] Health Physician GroupComment on above:Performed By: #### CBC, CMP ####[address] [address] USAGlucose [Mass/Vol]81 mg/mZUgjlxu87-703Wjh [facility] Health Physician GroupComment on above:Result Comment: Random Glucose Reference Range is dependent on time and content of last meal. Glucose of more than 200 mg/dL in a nonstressed, ambulatory subject supports the diagnosis of Diabetes Mellitus. ADA recommended reference rangePerformed By: #### CBC, CMP ####[address] [address] [place] [address] USAPotassium [Moles/Vol] 4.0 mmol/LNormal3.5-5.1The [facility] HospitalComment on above:Performed By: #### CBC, CMP ####[place] [address] [place] [address] USAProtein [Mass/Vol]5.9 g/dLLow6.4-8.9The [facility] Comment on above:Performed By: #### CBC, CMP ####[address] [address] USASodium [Moles/Vol]137 mmol/LNormal 136-145The [facility] Health Physician GroupComment on above:Performed By: #### CBC, CMP ####[address] [address] USAUrea nitrogen [Mass/Vol]16 mg/dLNormal7-25The [facility] HospitalComment on above:Performed By: #### CBC, CMP ####[address] [address] USAECH echo transthoracicon 50-23-1934MIE echo transthoracicNoCritical access hospital Physician KvmfzL1A with Estimated Average Gluon 81-34-3606Dtcrpoc [Mass/Vol]111 mg/dLNoCritical access hospital Physician [facility] HospitalComment on above:Result Comment: PERFORMED BY:[address] [place], [place] [phone] MEDICAL DIRECTORMARY SONI M.D.Performed By: #### ELDER, PTT, CMP, FE and TIBC, PT, A1C WTH eA, LIPID, MG, [id number], HS TROP, CBC ####[address] [address] USABlood estimated average glucose determination by estimation from glycated hemoglobinOrdered By: kAash Mccartney on 12-13-2024 Average glucose Estimated from glycated hemoglobin (Bld) [Mass/Vol]111 mg/dL [facility] HospitalCholesterol [Mass/volume] in Serum or Plasma Ordered By: Akash Mccartney on 48-89-4697Msyjijivocj [Mass/Vol]89 mg/dLLow 140-200Ohio [facility] HospitalComment on above:Chol less than 200 mg/dl low riskChol 201-239 mg/dl borderline riskChol 240 mg/dl and greater high riskOrder Comment: FASTING YResult Comment: Chol less than 200 mg/dl low risk Chol 201-239 mg/dl borderline risk Chol 240 mg/dland greater high riskPerformed By: #### ELDER, PTT, CMP, FE and TIBC, PT, A1C WTH eA, LIPID, MG, [id number], HS TROP, CBC ####[facility] [id number] [place] [address] USACholesterol in HDL [Mass/volume] in Serum or PlasmaOrdered By: Akash Mccartney on 35-21-5533Vckngelfvyi in HDL [Mass/Vol]43 mg/wDKvfzlo66-93BnuqxmxmuOhio Valley Surgical HospitalComment on above:HDL CHOL ATP-III CLASSIFICATION Cardiovascular RiskHDL > or equal to 60 mg/dL LOWHDL < 40 mg/dL HIGHOrder Comment: FASTING YResult Comment: HDL CHOL ATP-III CLASSIFICATION Cardiovascular Risk HDL > or equal to 60 mg/dL LOW HDL < 40 mg/dL HIGHPerformed By: #### ELDER, PTT, CMP, FE and TIBC, PT, A1C WTH eA, LIPID, MG, [id number], HS TROP, CBC ## ##[facility] [address] [place] [address] [place] Cholesterol in LDL Calc [Mass/Vol]Ordered By: Akash Mccartney on 12-13-2024 Cholesterol in LDL [Mass/Vol]35 mg/dL0-100[facility] Comment on above:LDL ATP III CLASSIFICATIONLDL less than 100 mg/dL OptimalLDL 100-129 mg/dL Near or above ymmklseFBS600-080 mg/dL Borderline highLDL 160-189 mg/dL HighLDL greater than 189 mg/dL Very highCholesterol in VLDL Calc [Mass/Vol]Ordered By: Akash Mccartney on 91-03-2017Xwinlliaecm in VLDL [Mass/Vol]11 mg/dLOhio Valley Surgical HospitalComplete Blood Count Auto Diffon 77-85-0189Skmflyekk (Bld) [#/Vol]0.0 10*3/uLNormal0.0-0.2The [facility] Health Physician GroupComment on above:Result Comment: PERFORMED BY:[address] [place], [place] [phone] MEDICAL DIRECTORMARY SONI M.D.Performed By: #### ELDER, PTT, CMP, FE and TIBC, PT, A1C WTH eA, LIPID, MG, [id number], HS TROP, CBC ####[address] [address] USABasophils/100 WBC (Bld)0.8 %Normal.The [facility] Health Physician GroupComment on above:Performed By: #### ELDER, PTT, CMP, FE and TIBC, PT, A1C WTH eA, LIPID, MG, [id number], HS TROP, CBC ####[address] [address] USAEosinophils (Bld) [#/Vol]0.4 10*3/uLNormal0.0-0.45The [facility] Health Physician GroupComment on above: Performed By: #### ELDER, PTT, CMP, FE and TIBC, PT, A1C WTH eA, LIPID, MG, [id number], HS TROP, CBC ####[address] [address] USAEosinophils/100 WBC (Bld)7.4 %Normal.The [facility] Health Physician GroupComment on above:Performed By: #### ELDER, PTT, CMP, FE and TIBC, PT, A1C WTH eA, LIPID, MG, [id number], HS TROP, CBC ####[address] [address] USAErythrocyte distribution width (RBC) [Ratio]18.2 %High12.0-14.8The [facility] Health Physician GroupComment on above: Performed By: #### ELDER, PTT, CMP, FE and TIBC, PT, A1C WTH eA, LIPID, MG, [id number], HS TROP, CBC ####[place] [address] USAHematocrit (Bld) [Volume fraction]23.9 %Low38.8-50.0 The [facility] Health Physician GroupComment on above:Performed By: #### ELDER, PTT, CMP, FE and TIBC, PT, A1C WTH eA, LIPID, MG, [id number], HS TROP, CBC ####[place] [phone] USAHemoglobin (Bld) [Mass/Vol]7.9 g/dLLow13.0-17.0The [facility] Health Physician GroupComment on above: Performed By: #### ELDER, PTT, CMP, FE and TIBC, PT, A1C WTH eA, LIPID, MG, [id number], HS TROP, CBC ####[place] [phone] USALymphocytes (Bld) [#/Vol]1.0 10*3/uLNormal1.00-4.8 The [facility] Health Physician GroupComment on above:Performed By: #### ELDER, PTT, CMP, FE and TIBC, PT, A1C WTH eA, LIPID, MG, [id number], HS TROP, CBC ####[place] [phone] USALymphocytes/100 WBC (Bld)19.1 %Normal.The [facility] Health Physician GroupComment on above:Performed By: #### ELDER, PTT, CMP, FE and TIBC, PT, A1C WTH eA, LIPID, MG, [id number], HS TROP, CBC ####[place] [phone] USAMCH (RBC) [Entitic mass]29.1 thJgejoh14.5-35.2The [facility] Health Physician GroupComment on above:Performed By: #### ELDER, PTT, CMP, FE and TIBC, PT, A1C WTH eA, LIPID, MG, [id number], HS TROP, CBC ####[place] [phone] USAMCV (RBC) [Entitic vol]88.3 yGBxmhob54.5-101The [facility] Health Physician GroupComment on above:Performed By: #### ELDER, PTT, CMP, FE and TIBC, PT, A1C WTH eA, LIPID, MG, [id number], HS TROP, CBC ####[place] [address] USAMean Corpuscular HGB Conc32.9 g/rHPjcwvg47.5-35.6The [facility] Health Physician GroupComment on above: Performed By: #### ELDER, PTT, CMP, FE and TIBC, PT, A1C WTH eA, LIPID, MG, [id number], HS TROP, CBC ####[place] [address] USAMonocytes (Bld) [#/Vol]0.4 10*3/uLNormal0.0-0.8The [facility] Health Physician GroupComment on above:Performed By: #### ELDER, PTT, CMP, FE and TIBC, PT, A1C WTH eA, LIPID, MG, [id number], HS TROP, CBC ####[place] [phone] USAMonocytes/100 WBC (Bld)7.4 %Normal.The [facility] Health Physician GroupComment on above:Performed By: #### ELDER, PTT, CMP, FE and TIBC, PT, A1C WTH eA, LIPID, MG, [id number], HS TROP, CBC ####[place] [phone] [place] Neutrophils (Bld) [#/Vol]3.4 10*3/uLNormal1.8-7.7The [facility] Comment on above:Performed By: #### ELDER, PTT, CMP, FE and TIBC, PT, A1C WTH eA, LIPID, MG, [id number], HS TROP, CBC ####[place] [phone] USANeutrophils/100 WBC (Bld)65.3 %Normal.The [facility] Health Physician GroupComment on above:Performed By: #### ELDER, PTT, CMP, FE and TIBC, PT, A1C WTH eA, LIPID, MG, [id number], HS TROP, CBC ####[place] [address] USANRBC%0.0 /100{WBC}Normal0-0.5 The [facility] Health Physician GroupComment on above:Performed By: #### ELDER, PTT, CMP, FE and TIBC, PT, A1C WTH eA, LIPID, MG, [id number], HS TROP, CBC ####[place] [address] USAPlatelet mean volume (Bld) [Entitic vol]7.8 fLNormal6.6-10.1The [facility] Health Physician GroupComment on above:Performed By: #### ELDER, PTT, CMP, FE and TIBC, PT, A1C WTH eA, LIPID, MG, [id number], HS TROP, CBC ####[place] [phone] USAPlatelets (Bld) [#/Vol]218 10*3/eMTdhrfc018-298Lsy [facility] Physician GroupComment on above:Performed By: #### ELDER, PTT, CMP, FE and TIBC, PT, A1C WTH eA, LIPID, MG, [id number], HS TROP, CBC ####[place] [phone] USARBC (Bld) [#/Vol]2.71 10*6/uLLow3.90-5.60The [facility] Physician GroupComment on above:Performed By: #### ELDER, PTT, CMP, FE and TIBC, PT, A1C WTH eA, LIPID, MG, [id number], HS TROP, CBC ####[place] [phone] USAWBC (Bld) [#/Vol]5.2 10*3/uLNormal4.1-10.5The [facility] Physician GroupComment on above:Performed By: #### ELDER, PTT, CMP, FE and TIBC, PT, A1C WTH eA, LIPID, MG, [id number], HS TROP, CBC ####[address] [address] USAWhite Blood Count5.2 [CFU]/mLNormal4.1-10.5The [facility] Health Physician GroupComment on above:Performed By: #### ELDER, PTT, CMP, FE and TIBC, PT, A1C WTH eA, LIPID, MG, [id number], HS TROP, CBC ####[place] [phone] USAComprehensive Metabolic Panelon 31-66-6182Lpimjah [Mass/Vol]3.1 g/dLLow3.5-5.7The [facility] Health Physician GroupComment on above:Order Comment: FASTING YPerformed By: #### ELDER, PTT, CMP, FE and TIBC, PT, A1C WTH eA, LIPID, MG, [id number], HS TROP, CBC ## ##[place] [id number] [place] Albumin/Globulin [Mass ratio]1.1 {ratio}NormalThe [facility] Physician Group Comment on above:Order Comment: FASTING YPerformed By: #### ELDER, PTT, CMP, FE and TIBC, PT, A1C WTH eA, LIPID, MG, [id number], HS TROP, CBC ####[address] [address] USAALP [Catalytic activity/Vol]81 U/WVfncwi67-312Ibg [facility] Physician GroupComment on above: Order Comment: FASTING YPerformed By: #### ELDER, PTT, CMP, FE and TIBC, PT, A1C WTH eA, LIPID, MG, [id number], HS TROP, CBC ####[address] [address] USAALT [Catalytic activity/Vol]11 U/L Normal7-52The [facility] Health Physician GroupComment on above:Order Comment: FASTING Y Performed By: #### ELDER, PTT, CMP, FE and TIBC, PT, A1C WTH eA, LIPID, MG, [id number], HS TROP, CBC ####[address] [address] USAAnion gap [Moles/Vol]9.5 mmol/LNormal6.0-15.0The [facility] Health Physician GroupComment on above:Order Comment: FASTING YPerformed By: #### ELDER, PTT, CMP, FE and TIBC, PT, A1C WTH eA, LIPID, MG, [id number], HS TROP, CBC ####[place] [phone] USAAST [Catalytic activity/Vol]33 U/IRlsmdp23-40Wdc [facility] Physician GroupComment on above:Order Comment: FASTING YPerformed By: #### ELDER, PTT, CMP, FE and TIBC, PT, A1C WTH eA, LIPID, MG, [id number], HS TROP, CBC ####[address] [address] USABilirubin [Mass/Vol]0.7 mg/dL Normal0.3-1.0The [facility] Health Physician GroupComment on above:Order Comment: FASTING YPerformed By: #### ELDER, PTT, CMP, FE and TIBC, PT, A1C WTH eA, LIPID, MG, [id number], HS TROP, CBC ####[place] [phone] USACalcium [Mass/Vol]8.5 mg/dLLow8.6-10.3The [facility] Health Physician GroupComment on above:Order Comment: FASTING YPerformed By: #### ELDER, PTT, CMP, FE and TIBC, PT, A1C WTH eA, LIPID, MG, [id number], HS TROP, CBC ## ##[address] [address] USAChloride [Moles/Vol]106 mmol/OEbjgge33-643Bba [facility] Physician GroupComment on above: Order Comment: FASTING YPerformed By: #### ELDER, PTT, CMP, FE and TIBC, PT, A1C WTH eA, LIPID, MG, [id number], HS TROP, CBC ####[place] [phone] USACO2 [Moles/Vol]24.1 mmol/LNormal 21.0-31.0[facility] Physician GroupComment on above:Order Comment: FASTING Y Performed By: #### ELDER, PTT, CMP, FE and TIBC, PT, A1C WTH eA, LIPID, MG, [id number], HS TROP, CBC ####[place] [address] USACreatinine [Mass/Vol]1.05 mg/dLNormal0.70-1.30The [facility] Health Physician GroupComment on above:Order Comment: FASTING YPerformed By: #### ELDER, PTT, CMP, FE and TIBC, PT, A1C WTH eA, LIPID, MG, [id number], HS TROP, CBC ####[address] Creatinine Clr Calc Vmfqnyaw24.26NoCritical access hospital Physician GroupComment on above:Order Comment: FASTING YPerformed By: #### ELDER, PTT, CMP, FE and TIBC, PT, A1C WTH eA, LIPID, MG, [id number], HS TROP, CBC ####[place] [id number] USAGFR/1.73 sq M.predicted MDRD (S/P/Bld) [Vol rate/Area]mL/min/{1.73_m2}NormalThe [facility] Health Physician GroupComment on above:Order Comment: FASTING YPerformed By: #### ELDER, PTT, CMP, FE and TIBC, PT, A1C WTH eA, LIPID, MG, [id number], HS TROP, CBC ####[place] [phone] [facility] CENTERGlobulin (S) [Mass/Vol]2.7 g/dLNormal [facility] Physician GroupComment on above:Order Comment: FASTING YPerformed By: #### ELDER, PTT, CMP, FE and TIBC, PT, A1C WTH eA, LIPID, MG, [id number], HS TROP, CBC ####[place] [id number] USAGlucose [Mass/Vol]78 mg/cMVqsowk73-718Msk [facility] Physician GroupComment on above:Order Comment: FASTING YResult Comment: Random Glucose Reference Range is dependent on time and content of last meal. Glucose of more than 200 mg/dL in a nonstressed, ambulatory subject supports the diagnosis of Diabetes Mellitus. ADA recommended reference rangePerformed By: #### ELDER, PTT, CMP, FE and TIBC, PT, A1C WTH eA, LIPID, MG, [id number], HS TROP, CBC ####[place] [address] USAPotassium [Moles/Vol]3.6 mmol/LNormal3.5-5.1The [facility] Physician GroupComment on above:Order Comment: FASTING YPerformed By: #### ELDER, PTT, CMP, FE and TIBC, PT, A1C WTH eA, LIPID, MG, [id number], HS TROP, CBC ####[place] [id number] USAProtein [Mass/Vol]5.8 g/dLLow6.4-8.9The [facility] Physician GroupComment on above:Order Comment: FASTING YPerformed By: #### ELDER, PTT, CMP, FE and TIBC, PT, A1C WTH eA, LIPID, MG, [id number], HS TROP, CBC ## ##[place] [id number] USASodium [Moles/Vol]136 mmol/DSaoetj955-040Tyv [facility] Physician GroupComment on above: Order Comment: FASTING YPerformed By: #### ELDER, PTT, CMP, FE and TIBC, PT, A1C WTH eA, LIPID, MG, [id number], HS TROP, CBC ####[place] [phone] USAUrea nitrogen [Mass/Vol]14 mg/dLNormal 7-25The [facility] Physician GroupComment on above:Order Comment: FASTING Y Performed By: #### ELDER, PTT, CMP, FE and TIBC, PT, A1C WTH eA, LIPID, MG, [id number], HS TROP, CBC ####[facility] [place] [address] USAFerritin [Mass/volume] in Serum or PlasmaOrdered By: Akash Mccartney on 26-33-6190Tnlubzyn [Mass/Vol]371.5 ng/cUIarn60.9-336.2 [facility] HospitalComment on above:Order Comment: FASTING Y Performed By: #### ELDER, PTT, CMP, FE and TIBC, PT, A1C WTH eA, LIPID, MG, [id number], HS TROP, CBC ####[address] [place] [address] USAFolate [Mass/volume] in Serum or PlasmaOrdered By: Akash Mccartney on 77-81-9079Xvssdj [Mass/Vol]9.1 ng/mL>5.9[facility] HospitalComment on above:Folate reference range: >5.9 ng/mlThe WHO technical consultation on folate and vitamin g04vajmuzkidoix has determined that folate concentrations lessthan 4 ng/ml are considered deficient.Hemoglobin A1c/Hemoglobin.total in BloodOrdered By: Akash Mccartney on 26-55-9669ThE6z (Bld) [Mass fraction]5.5 %Normal4.3-5.6FCommunity Regional Medical CenterComment on above:Increased risk for diabetes: 5.7 - 6.4diabetes: >6.4glycemic control for adults with diabetes: <7.0Result Comment: Increased risk for diabetes: 5.7 - 6.4 diabetes: >6.4 glycemic control for adults with diabetes: <7.0 Performed By: #### ELDER, PTT, CMP, FE and TIBC, PT, A1C WTH eA, LIPID, MG, [id number], HS TROP, CBC ####[address] [place] [address] USAINR in Platelet poor plasma by Coagulation assay Ordered By: Akash Mccartney on [id number] Coag (PPP) [Relative time]2.5 {INR}NormalOhio Valley Surgical HospitalComment on above:INR Therapeutic Range A) Pre- [...] TIBC, PT, A1C WTH eA, LIPID, MG, [id number], HS TROP, CBC ####[id number] [place] [address] USAIron [Mass/volume] in Serum or PlasmaOrdered By: Akash Mccartney on [id number] [Mass/Vol]11 ug/[id number] Valley Surgical HospitalComment on above:Order Comment: FASTING YPerformed By: #### ELDER, PTT, CMP, FE and TIBC, PT, A1C WTH eA, LIPID, MG, [id number], HS TROP, CBC ####[id number] [place] [address] [place] Iron and TIBC Profileon 12-13-2024% Iron Saturation5.4 %[id number] [facility] Health Physician GroupComment on above:Order Comment: FASTING YPerformed By: #### ELDER, PTT, CMP, FE and TIBC, PT, A1C WTH eA, LIPID, MG, [id number], HS TROP, CBC ## ##[facility] [place] [address] USATotal Iron Binding [id number] ug/[id number] [facility] Physician GroupComment on above:Order Comment: FASTING YPerformed By: #### ELDER, PTT, CMP, FE and TIBC, PT, A1C WTH eA, LIPID, MG, [id number], HS TROP, CBC ####[address] [place] [address] USALipid Panelon [id number] Cholesterol,Ebkwolqnzc48 mg/dLNormal0-100The [facility] Health Physician GroupComment on above:Order Comment: FASTING YResult Comment: LDL ATP III CLASSIFICATION LDL less than 100 mg/dL Optimal LDL 100-129 mg/dL Near or above optimal LDL 130-159 mg/dL Borderline high LDL 160-189 mg/dL High LDL greater than 189 mg/dL Very highPerformed By: #### ELDER, PTT, CMP, FE and TIBC, PT, A1C WTH eA, LIPID, MG, [id number], HS TROP, CBC ####[address] [place] [address] USATriglyceride w/Qwpdtm80 mg/dLNormal0-149The [facility] Health Physician GroupComment on above:Order Comment: FASTING YResult Comment: TRIG ATP III CLASSIFICATION TRIG less than 150 mg/dL Normal TRIG 150- 199 mg/dL Borderline high TRIG 200-500 mg/dL High TRIG greater than 500 mg/dL Very high Standard traceable to the Center for Disease Conrtrol and Prevention (CDC) test method.Performed By: #### ELDER, PTT, CMP, FE and TIBC, PT, A1C WTH eA, LIPID, MG, [id number], HS TROP, CBC ####[address] [address] USAVLDL FTYKRFWOWMX75 mg/dLNormalThe Unc Health Physician GroupComment on above:Order Comment: FASTING YPerformed By: #### ELDER, PTT, CMP, FE and TIBC, PT, A1C WTH eA, LIPID, MG, [id number], HS TROP, CBC ## ##[address] [address] USAMagnesium [Mass/volume] in Serum or PlasmaOrdered By: Akash Mccartney on 12-13-2024 Magnesium [Mass/Vol]1.8 mg/dLLow1.9-2.7FCommunity Regional Medical CenterComment on above:Order Comment: FASTING YPerformed By: #### ELDER, PTT, CMP, FE and TIBC, PT, A1C WTH eA, LIPID, MG, [id number], HS TROP, CBC ####[facility] [place] [address] USAPartial Thromboplastin Timeon 57-08-5208zZPY Coag (Bld) [Time]38.9 sHigh25.1-36.5The [facility] Comment on above:Result Comment: A hematocrit value greater than 55% may lead to inaccurate results in coagulation testing. Patients having hematocrit values >55% require a special collection tube for coagulation studies. Please contact the laboratory at [phone] for redraw instructions.PERFORMED BY:[address] [place], [place] [phone] MEDICAL DIRECTORMARY SONI M.D.Performed By: #### ELDER, PTT, CMP, FE and TIBC, PT, A1C WTH eA, LIPID, MG, [id number], HS TROP, CBC ####[address] [place] [address] USAProthrombin time (PT)Ordered By: Akash Mccartney on 63-59-5867CL Coag (PPP) [Time]27.3 sHigh9.0-12.9 [facility] HospitalComment on above:A hematocrit value greater than 55% may lead to inaccurate results in coagulation testing. Patientshaving hematocrit values >55% require a special collection tube for coagulation studies. Please contact the laboratory at [phone] for redraw instructions. Result Comment: A hematocrit value greater than 55% may lead to inaccurate results in coagulation testing. Patients having hematocrit values >55% require a special collection tube for coagulation studies. Please contact the laboratory at [phone] for redraw instructions.Performed By: #### ELDER, PTT, CMP, FE and TIBC, PT, A1C WTH eA, LIPID, MG, [id number], HS TROP, CBC ####[address] [place] [address] USASerum or plasma iron binding capacity measurement (mass/volume)Ordered By: Akash Mccartney on 12-13-2024 Iron binding capacity [Mass/Vol]204 ug/uSWrp254-452BsopranrbBlanchard Valley Health System Blanchard Valley Hospitalerum or plasma iron saturation measurement (mass fraction)Ordered By: Akash Mccartney on 31-79-4881Lfii saturation [Mass fraction]5.4 %Aph69-40 [facility] Blanchard Valley Hospitalerum or plasma total cholesterol/high density lipoprotein (HDL) cholesterol mass ratOrdered By: Akash Mccartney on 64-90-1486Wpzrzodjlyi.total/Cholesterol in HDL [Mass ratio]2.1 {ratio}Normal<5.0 [facility] HospitalComment on above:Order Comment: FASTING YResult Comment: PERFORMED BY:[address] [place], [place] [phone] MEDICAL DIRECTORMARY SONI M.D.Performed By: #### ELDER, PTT, CMP, FE and TIBC, PT, A1C WTH eA, LIPID, MG, [id number], HS TROP, CBC ####[address] [address] USATransferrin [Mass/volume] in Serum or PlasmaOrdered By: Akash Mccartney on 61-05-5371Uktyrmcquit [Mass/Vol]146 mg/bTHks374-037ZiypeohnxOhio Valley Surgical HospitalComment on above:Order Comment: FASTING YPerformed By: #### ELDER, PTT, CMP, FE and TIBC, PT, A1C WTH eA, LIPID, MG, [id number], HS TROP, CBC ## ##[address] [address] [place] Triglyceride [Mass/volume] in Serum or PlasmaOrdered By: Akash Mccartney on 13-04-3720Jhucaoulblsf [Mass/Vol]57 mg/dL0-149[facility] Comment on above:TRIG ATP III CLASSIFICATIONTRIG less than 150 mg/dL NormalTRIG 150-199 mg/dL Borderline highTRIG 200-500 mg/dL High TRIG greater than 500 mg/dL Very highStandard traceable to the Center for Disease Conrtrol and Prevention (CDC) test method.Troponin I High Sensitivityon 18-83-2022Vdpdccmy I High Begvqbuugft19Gybefe7-37Rps Unc Health Physician GroupComment on above:Result Comment: The Troponin units of report have been changed to meet the Chest Pain Accreditationrequirement, element EC5.M1l2. Troponin units are changed from pg/ml to ng/L. Also, the decimal is removed and results are in whole numbers.PERFORMED BY:[address] GOLDSTEINDaneAMEENAMED[place], [place] [phone] MEDICAL DIRECTORMARY SONI M.D.Performed By: #### ELDER, PTT, CMP, FE and TIBC, PT, A1C WTH eA, LIPID, MG, [id number], HS TROP, CBC ####[address] [address] USATroponin I.cardiac [Mass/volume] in Serum or Plasma by Detection limit <= 0.01 ng/mLOrdered By: Akash Mccartney on 22-95-6565Cqaqpzum I.cardiac DL <= 0.01 ng/mL [Mass/Vol]10 ng/L0-[facility] HospitalComment on above:The Troponin units of report have been changed to meet the Chest Pain Accreditation requirement, element EC5.M1l2. Troponin units are changed from pg/ml to ng/L. Also, the decimal is removed and results are in whole numbers. Vit. B12/Folate Profileon 15-94-0289Dnrrqz0.1 ng/mLNormal>5.9The Unc Health Physician GroupComment on above:Order Comment: FASTING YResult Comment: Folate reference range: >5.9 ng/ml The WHO technical consultation on folate and vitamin b12 deficiencies has determined that folate concentrations less than 4 ng/ml are considered deficient.PERFORMED BY:[address] [place], [place] [phone] MEDICAL DIRECTORMARY SONI M.D.Performed By: #### ELDER, PTT, CMP, FE and TIBC, PT, A1C WTH eA, LIPID, MG, [id number], HS TROP, CBC ####[facility] [place] [address] USAVitamin B12 ser/plasOrdered By: Akash Mccartney on 89-60-1535Gniuoetia (Vitamin B12) [Mass/Vol]506 pg/yDZmacpe840-848HowzprdezOhio Valley Surgical HospitalComment on above:Order Comment: FASTING YPerformed By: #### ELDER, PTT, CMP, FE and TIBC, PT, A1C WTH eA, LIPID, MG, [id number], HS TROP, CBC ####[address] [place] [address] [facility] aPTT in Platelet poor plasma by Coagulation assayOrdered By: Akash Mccartney on 56-09-3080wIHP Coag (PPP) [Time]38.9 sHigh25.1-36.5FCommunity Regional Medical CenterComment on above:A hematocrit value greater than 55% may lead to inaccurate results in coagulation testing. Patientshaving hematocrit values >55% require a special collection tube for coagulation studies. Please contact the laboratory at [phone] for redraw instructions.Alanine aminotransferase [Enzymatic activity/volume] in Serum or PlasmaOrdered By: Sree Thao on 01-13-7776TUC [Catalytic activity/Vol]14 U/LNormal7-52[facility] HospitalComment on above:Performed By: #### HS TROP, PTT, PT, CBC, CMP ####[facility] [place] [address] USAAlbumin [Mass/volume] in Serum or Plasma by Bromocresol green (BCG) dye binding metho Ordered By: Sree Thao on 41-56-9159Uwgyyri BCG dye [Mass/Vol]3.7 g/dL 3.5-5.7FCommunity Regional Medical CenterAlkaline phosphatase [Enzymatic activity/volume] in Serum or PlasmaOrdered By: Sree Thao on 12-12-2024 ALP [Catalytic activity/Vol]98 U/AIpkpth38-300EscqvrskeOhio Valley Surgical Hospital Comment on above:Performed By: #### HS TROP, PTT, PT, CBC, CMP ####[address] [place] [address] USAAppearance of Urine Ordered By: Sree Thao on 74-94-9839Pbiokfcfcu (U)ClearNormalClear [facility] HospitalComment on above:Order Comment: Name Collection Type:: Chou CatheterPerformed By: #### CUU, ADDONUAPLUS ####[address] [place], [place] USAAspartate aminotransferase [Enzymatic activity/volume] in Serum or PlasmaOrdered By: Sree Thao on 84-62-0215IHE [Catalytic activity/Vol]49 U/QQxhi25-99SwqznzaqmOhio Valley Surgical HospitalComment on above:Performed By: #### HS TROP, PTT, PT, CBC, CMP ####[address] [place] [address] USABNP ser/plasOrdered By: Sree Thao on 10-02-4988Wpiguajzauu peptide B (Bld) [Mass/Vol]114.0 pg/mLHigh5-100[facility] HospitalComment on above: Order Comment: ADDED ON TO PREVIOUS REQUISITION PER EDILMA IN [place] Comment: PERFORMED BY:[address] [place], [place] [phone] MEDICAL MARY KATE SONI M.D.Performed By: #### BNP ####[address] [address] USABacteria [Presence] in Urine by AutomatedOrdered By: Sree Thao on 90-52-1150Nspjmsou Auto Ql (U)Rare [HPF]None [facility] Health CenterBasophils [#/volume] in Blood by Automated countOrdered By: Sree Thao on 70-33-3287Akneythgc (Bld) [#/Vol]0.0 10*3/uLNormal0.0-0.2FCommunity Regional Medical CenterComment on above:Result Comment: PERFORMED BY:[address] [place] [place], [place] [phone] MEDICAL DIRECTORMARIO S NAE M.D.Performed By: #### HS TROP, PTT, PT, CBC, CMP ####[phone] [place] Basophils/100 leukocytes in Blood by Automated countOrdered By: Sree Thao on 91-42-6216Nrubxmgtu/100 WBC (Bld)0.6 %Normal.[facility] HospitalComment on above:Performed By: #### HS TROP, PTT, PT, CBC, CMP ####[address] [facility] Bilirubin Test strip Ql (U)Ordered By: Sree Thao on 57-50-7337Umtilzydm Ql (U)NegativeNegativeOhio Valley Surgical HospitalBilirubin.total [Mass/volume] in Serum or PlasmaOrdered By: Sree Thao on 12-12-2024 Bilirubin [Mass/Vol]0.9 mg/dLNormal0.3-1.0[facility] Comment on above:Performed By: #### HS TROP, PTT, PT, CBC, CMP ####[phone] USACT cervical spine wo conon 99-19-4822QH cervical spine wo conNormalThe Unc Health Physician Group Calcium [Mass/volume] in Serum or PlasmaOrdered By: Sree Thao on 86-19-0081Gvrgfvb [Mass/Vol]9.1 mg/dLNormal8.6-10.3FCommunity Regional Medical CenterComment on above:Performed By: #### HS TROP, PTT, PT, CBC, CMP ####[id number] USACarbon dioxide, total [Moles/volume] in Serum or PlasmaOrdered By: Sree Thao on 69-83-0057EX3 [Moles/Vol]26.4 mmol/XFdiyfs72.0-31.0[facility] HospitalComment on above:Performed By: #### HS TROP, PTT, PT, CBC, CMP ####[address] [place] Chloride [Moles/volume] in Serum or PlasmaOrdered By: Sree Thao on 32-23-5241Lxjxsrvi [Moles/Vol]102 mmol/WTyucot47-559GhokjdpddOhio Valley Surgical HospitalComment on above:Performed By: #### HS TROP, PTT, PT, CBC, CMP ####[address] [address] USAColor of Urine by AutoOrdered By: Sree Master on 26-41-4861Spqoy (U)Colorless NormalYellowOhio Valley Surgical HospitalComment on above:Order Comment: Name Collection Type:: Chou CatheterPerformed By: #### CUU, ADDONUAPLUS ####[address] USAComplete Blood Count Auto Diffon 54-55-7519Flqy Corpuscular HGB Conc32.5 g/dLNormal 32.5-35.6The Unc Health Physician GroupComment on above:Performed By: #### HS TROP, PTT, PT, CBC, CMP ####[address] [address] USAMonocytes/100 WBC (Bld)18.74 %Normal0.00-20.00The Unc Health Physician GroupComment on above:Performed By: #### HS TROP, PTT, PT, CBC, CMP ####[address] [address] USANRBC% 0.3 /100{WBC}Normal0-0.5The [facility]ician [facility] HospitalComment on above:Performed By: #### HS TROP, PTT, PT, CBC, CMP ####[address] [address] USAWhite Blood Count5.0 [CFU]/mLNormal4.1-10.5The [facility]ician [facility] HospitalComment on above:Performed By: #### HS TROP, PTT, PT, CBC, CMP ####[address] [address] USAComprehensive Metabolic Panelon 26-78-1936Extspsm [Mass/Vol]3.7 g/dLNormal 3.5-5.7The Un[facility] Health Physician GroupComment on above:Performed By: #### HS TROP, PTT, PT, CBC, CMP ####[address] [place] [address] USACreatinine Clr Calc Yzmjewrf93.45NoCritical access hospital Physician Group Comment on above:Result Comment: PERFORMED BY:[address] [place] [place], [place] [phone] MEDICAL DIRECTORMARY SONI M.D.Performed By: #### HS TROP, PTT, PT, CBC, CMP ####[address] [address] [place] GFR/1.73 sq M.predicted MDRD (S/P/Bld) [Vol rate/Area]mL/min/{1.73_m2}NormalThe Unc Health Physician GroupComment on above:Performed By: #### HS TROP, PTT, PT, CBC, CMP ####[address] [address] USACreatinine [Mass/volume] in Serum or PlasmaOrdered By: Sree Thao on 20-72-0183Zacisyvnit [Mass/Vol]1.09 mg/dLNormal0.70-1.30[facility] HospitalComment on above:Performed By: #### HS TROP, PTT, PT, CBC, CMP ####[address] [address] [place] Dipstick and Microscopicon 34-56-9076Vxxwywsf,UrineRareNormalNone SeenThe Unc Health Physician GroupComment on above:Order Comment: Name Collection Type:: Chou CatheterPerformed By: #### CUU, ADDONUAPLUS ####[address] USABilirubin,UrineNegativeNormalNegative The Unc Health Physician GroupComment on above:Order Comment: Name Collection Type:: Chou CatheterPerformed By: #### CUU, ADDONUAPLUS ####[address] USAGlucose Ql (U)NormalNormal NormalThe Unc Health Physician GroupComment on above:Order Comment: Name Collection Type:: Chou CatheterPerformed By: #### CUU, ADDONUAPLUS ####[address] USAHyaline Casts,Atudb6-6Witzhb8-8Ndu [facility] Health Physician GroupComment on above:Order Comment: Name Collection Type:: Chou CatheterPerformed By: #### CUU, ADDONUAPLUS ####[address] USAMucus,UrineRareNormalThe Unc Health Physician GroupComment on above:Order Comment: Name Collection Type:: Chou CatheterResult Comment: PERFORMED BY:[address] [place]OLDSTE[place]aneAMEE[place], [place] [phone] MEDICAL MARY KATE SONI M.D.Performed By: #### CUU, ADDONUAPLUS ####[address] USANitrite,UrineNegativeNormalNegativeThe Unc Health Physician GroupComment on above:Order Comment: Name Collection Type:: Chou CatheterPerformed By: #### CUU, ADDONUAPLUS ####[address] [address] USAOccult Blood,Urine1+NormalNegativeThe Unc Health Physician GroupComment on above:Order Comment: Name Collection Type:: Chou CatheterResult Comment: PERFORMED BY:[address] [place], [place] [phone] MEDICAL MARY KATE SONI M.D.Performed By: #### CUU, ADDONUAPLUS ####[address] USAProtein,UrineNegativeNormalNegativeThe Unc Health Physician GroupComment on above:Order Comment: Name Collection Type:: Chou CatheterPerformed By: #### CUU, ADDONUAPLUS ####[address] USARBC,Dmzki3-4Tcusye4-4Pal [facility] Health Physician GroupComment on above:Order Comment: Name Collection Type:: Chou CatheterPerformed By: #### CUU, ADDONUAPLUS ####[address] USASpecificy Randolph,Urine1.004Normal 1.001-1.030The [facility] Health Physician GroupComment on above:Order Comment: Name Collection Type:: Chou CatheterPerformed By: #### CUU, ADDONUAPLUS ####[address] [place] Urobilinogen,UrineNormalNormalNormHCA Florida Lake [facility] Hospital Physician GroupComment on above:Order Comment: Name Collection Type:: Chou CatheterPerformed By: #### CUU, ADDONUAPLUS ####[address] [address] USAWBC,Eyfat58-24Eebzwa9-3Qji [facility] Health Physician GroupComment on above: Order Comment: Name Collection Type:: Chou CatheterPerformed By: #### CUU, ADDONUAPLUS ####[address] USAECG 12 lead ECGon 90-92-7628AXC 12 lead ECGAitkin HospitalEosinophils [#/volume] in Blood by Automated countOrdered By: Sree Thao on 67-34-0737Tfihdrfmwuk (Bld) [#/Vol]0.2 10*3/uLNormal0.0-0.45[facility] HospitalComment on above:Performed By: #### HS TROP, PTT, PT, CBC, CMP ####[address] [address] USAEosinophils/100 leukocytes in Blood by Automated countOrdered By: Sree Thao on 05-16-6682Orxqnxipkly/100 WBC (Bld)4.4 %Normal.[facility] HospitalComment on above:Performed By: #### HS TROP, PTT, PT, CBC, CMP ####[address] [address] [place] Epithelial cells.squamous [#/area] in Urine sediment by Automated countOrdered By: Sree Thao on 21-62-1412Xlwthliaqo cells.squamous Auto (Urine sed) [#/Area]N/AFCommunity Regional Medical CenterErythrocyte distribution width [Ratio] by Automated countOrdered By: Sree Thao on 90-32-1776Yrnzfdnufpn distribution width (RBC) [Ratio]18.4 %High12.0-14.8[facility] HospitalComment on above:Performed By: #### HS TROP, PTT, PT, CBC, CMP ####[facility] Ydr[address] Erythrocytes [#/area] in Urine sediment by Automated countOrdered By: Sree Thao on 65-87-8358PWM Auto (Urine sed) [#/Area]1-2 [HPF]0-4FCommunity Regional Medical CenterErythrocytes [#/volume] in Blood by Automated countOrdered By: Sree Thao on 87-72-0249KNK (Bld) [#/Vol]3.34 10*6/uLLow3.90-5.60 [facility] HospitalComment on above:Performed By: #### HS TROP, PTT, PT, CBC, CMP ####[facility] [id number] [address] StreetGlomerular filtration rate [Volume Rate/Area] in Serum, Plasma or Blood by CreatinineOrdered By: Sree Thao on 50-23-3419Xohvgzvtjz filtration rate [Volume Rate/Area] in Serum, Plasma or Blood by Creatinine> 60.0 mL/MinOhio Valley Surgical HospitalGlucose [Mass/volume] in Serum or Plasma Ordered By: Sree Thao on 03-18-6886Qhvqnou [Mass/Vol]121 mg/tTPpwp44-355 [facility] HospitalComment on above:ADA recommended reference rangeRandom Glucose [...] #### HS TROP, PTT, PT, CBC, CMP ####[address] [place] [id number] USAGlucose [Mass/volume] in Urine by Test stripOrdered By: Sree Thao on 48-87-7026Vglvwxp Test strip (U) [Mass/Vol]Normal mg/dLNormal [facility] HospitalHematocrit [Volume Fraction] of Blood by Automated countOrdered By: Sree Thao on 31-58-5089Zzbahuyjmu (Bld) [Volume fraction]29.7 %Low38.8-50.0[facility] Surgical HospitalComment on above:Performed By: #### HS TROP, PTT, PT, CBC, CMP ####[address] USAHemoglobin Test strip Ql (U) Ordered By: Sree Thao on 54-21-7642Aaddoixgps Ql (U)1+HighNegative [facility] Surgical HospitalHemoglobin [Mass/volume] in BloodOrdered By: Sree Thao on 05-00-0928Vbivubmvzv (Bld) [Mass/Vol]9.6 g/dLLow13.0-17.0 [facility] HospitalComment on above:Performed By: #### HS TROP, PTT, PT, CBC, CMP ####[address] USAHyaline casts [#/area] in Urine sediment by Automated countOrdered By: Sree Thao on 80-43-2154Pkytnym casts Auto (Urine sed) [#/Area]0-8 [LPF]0-8[facility] Surgical HospitalINR in Platelet poor plasma by Coagulation assayOrdered By: Sree Thao on 66-93-0559EVA Coag (PPP) [Relative time]2.6 {INR}NormalOhio Valley Surgical HospitalComment on above: INR Therapeutic Range A) [...] #### HS TROP, PTT, PT, CBC, CMP ####[facility] Qhp[address] [place] [address] USAKetones [Presence] in Urine by Test stripOrdered By: Sree Thao on 71-85-2908Bxfzzqv Ql (U) NegativeNormalNegativeOhio Valley Surgical HospitalComment on above:Order Comment: Name Collection Type:: Chou CatheterPerformed By: #### CUU, ADDONUAPLUS ####[address] [facility], [place] USALeukocyte esterase [Presence] in Urine by Test stripOrdered By: Sree Thao on 36-78-1347Rvqpsfudi esterase Test strip Ql (U)2+NormalNegative [facility] HospitalComment on above:Order Comment: Name Collection Type:: Chou CatheterPerformed By: #### CUU, ADDONUAPLUS ####[address] [facility], [id number] USALeukocytes [#/area] in Urine sediment by Automated countOrdered By: Sree Thao on 79-04-3477LPO Auto (Urine sed) [#/Area]10-19 [HPF]High0-4FCommunity Regional Medical Center Leukocytes [#/volume] corrected for nucleated erythrocytes in Blood by Automated counOrdered By: Sree Thao on 31-17-4384FJF corrected for nucl RBC Auto (Bld) [#/Vol]5.0 10*3/uL4.1-10.5FCommunity Regional Medical CenterLeukocytes [#/volume] in Blood by Automated countOrdered By: Sree Thao on 43-66-8824SEI (Bld) [#/Vol]5.0 10*3/uLNormal4.1-10.5FCommunity Regional Medical CenterComment on above:Performed By: #### HS TROP, PTT, PT, CBC, CMP ####[address] Lymphocytes [#/volume] in Blood by Automated countOrdered By: Sree Thao on 31-69-8095Khfcmacwijz (Bld) [#/Vol]0.8 10*3/uLLow1.00-4.8[facility] HospitalComment on above:Performed By: #### HS TROP, PTT, PT, CBC, CMP ####[address] Lymphocytes/100 leukocytes in Blood by Automated countOrdered By: Sree Thao on 90-24-7915Xwtpebykueu/100 WBC (Bld)15.9 %Normal.[facility] HospitalComment on above:Performed By: #### HS TROP, PTT, PT, CBC, CMP ####[address] [facility] [Entitic mass] by Automated countOrdered By: Sree Thao on 75-74-8646WLB (RBC) [Entitic mass]28.8 pcYmyxrl79.5-35.2FCommunity Regional Medical Center Comment on above:Performed By: #### HS TROP, PTT, PT, CBC, CMP ####[address] [facility] Auto (RBC) [Mass/Vol]Ordered By: Sree Thao on 82-00-9411XXLG (RBC) [Mass/Vol]32.5 g/dL32.5-35.6FSalem City HospitalV [Entitic volume] by Automated countOrdered By: Sree Thao on 30-14-7256ZPS (RBC) [Entitic vol]88.7 fL Xilfzi10.5-101Ohio [facility] Surgical HospitalComment on above:Performed By: #### HS TROP, PTT, PT, CBC, CMP ####[address] USAMonocyte distribution width [Entitic volume] in Blood by AutomatedOrdered By: Sree Thao on 70-54-4056Nwudqmsq distribution width Auto (Bld) [Entitic vol]18.74 %0.00-20.00[facility] Surgical HospitalMonocytes [#/volume] in Blood by Automated countOrdered By: Sree Thao on 26-01-7778Kuyafhdjj (Bld) [#/Vol]0.4 10*3/uLNormal0.0-0.8 [facility] HospitalComment on above:Performed By: #### HS TROP, PTT, PT, CBC, CMP ####[address] USAMonocytes/100 leukocytes in Blood by Automated countOrdered By: Sree Thao on 99-41-9407Mvqdapcjg/100 WBC (Bld)7.5 %Normal.[facility] HospitalComment on above:Performed By: #### HS TROP, PTT, PT, CBC, CMP ####[address] USAMucus [Presence] in Urine by AutomatedOrdered By: Sree Thao on 35-46-6388Etrtq Auto Ql (U)Rare [LPF][facility] Neutrophils [#/volume] in Blood by Automated countOrdered By: Sree Thao on 92-01-8562Hedpdgyjmmo (Bld) [#/Vol]3.5 10*3/uLNormal1.8-7.7FCommunity Regional Medical CenterComment on above:Performed By: #### HS TROP, PTT, PT, CBC, CMP ####[address] [address] [place] Neutrophils/100 leukocytes in Blood by Automated countOrdered By: Sree Thao on 31-37-6741Yhnknuyiilg/100 WBC (Bld)71.6 %Normal.[facility] HospitalComment on above:Performed By: #### HS TROP, PTT, PT, CBC, CMP ####[address] [address] USANitrite Test strip Ql (U)Ordered By: Sree Thao on 87-20-0537Odslcnb Ql (U) NegativeNegativeOhio Valley Surgical HospitalNo Panel InformationOrdered By: Sree Thao on 78-05-4369Agaqlgio Creatinine Clearance (Chem51.45 [facility] Surgical HospitalNucleated erythrocytes [Presence] in Blood by Automated countOrdered By: Sree Thao on 95-74-9328Glxhztnvo RBC Auto Ql (Bld)0.3 /100{WBC}0-0.5FCommunity Regional Medical CenterPartial Thromboplastin Timeon 49-50-9830qSVR Coag (Bld) [Time]38.4 sHigh25.1-36.5The Unc Health Physician GroupComment on above:Result Comment: A hematocrit value greater than 55% may lead to inaccurate results in coagulation testing. Patients having hematocrit values >55% require a special collection tube for coagulation s tudies. Please contact the laboratory at [phone] for redraw instructions.PERFORMED BY:[address] [place], [place] [phone] MEDICAL DIRECTORMARY SONI M.D.Performed By: #### HS TROP, PTT, PT, CBC, CMP ####[address] [address] USAPlatelet mean volume [Entitic volume] in Blood by Automated countOrdered By: Sree Thao on 84-89-7662Qdqdfqgo mean volume (Bld) [Entitic vol]7.8 fLNormal6.6-10.1FCommunity Regional Medical CenterComment on above:Performed By: #### HS TROP, PTT, PT, CBC, CMP ####[address] [address] [place] Platelets [#/volume] in Blood by Automated countOrdered By: Sree Thao on 44-68-0605Hkzdoelyg (Bld) [#/Vol]229 10*3/qPTvunds295-545QpbcuhcjqOhio Valley Surgical HospitalComment on above:Performed By: #### HS TROP, PTT, PT, CBC, CMP ####[address] [address] [place] Potassium [Moles/volume] in Serum or PlasmaOrdered By: Sree Thao on 77-63-7479Vgsvkvzkv [Moles/Vol]3.6 mmol/LNormal3.5-5.1FCommunity Regional Medical CenterComment on above:Hemolysis is present at a level that could interfere with the result.Contact lab if redraw is requiredResult Comment: Hemolysis is present at a level that could interfere with the result. Contact lab if redraw is requiredPerformed By: #### HS TROP, PTT, PT, CBC, CMP ####[address] [place] [address] USAProtein Test strip (U) [Mass/Vol]Ordered By: Sree Thao on 40-19-1721Sdqtmyk (U) [Mass/Vol] NegativeNegativeOhio Valley Surgical HospitalProtein [Mass/volume] in Serum or PlasmaOrdered By: Sree Thao on 03-54-6722Amaipqp [Mass/Vol]6.9 g/dL Normal6.4-8.9[facility] Surgical HospitalComveterans affairs ann [facility] on above:Performed By: #### HS TROP, PTT, PT, CBC, CMP ####[address] [address] USAProthrombin time (PT)Ordered By: Sree Thao on 49-09-8869BA Coag (PPP) [Time]28.3 sHigh9.0-12.9Ohio Valley Surgical HospitalComment on above:A hematocrit value greater than 55% may lead to inaccurate results in coagulation testing. Patientshaving hematocrit values >55% require a special collection tube for coagulation studies. Please contact the laboratory at [phone] for redraw instructions.Result Comment: A hematocrit value greater than 55% may lead to inaccurate results in coagulation testing. Patients having hematocrit values >55% require a special collection tube for coagulation studies. Please contact the laboratory at [phone] for redraw instructions.Performed By: #### HS TROP, PTT, PT, CBC, CMP ####[facility] [place] [address] USASerum globulin measurement by calculation (mass/volume)Ordered By: Sree Thao on 09-82-3542Cnudcftt (S) [Mass/Vol]3.2 g/dLNormalOhio Valley Surgical Hospital Comment on above:Performed By: #### HS TROP, PTT, PT, CBC, CMP ####[address] [address] USASerum or plasma albumin/globulin mass ratioOrdered By: Sree Thao on 12-12-2024 Albumin/Globulin [Mass ratio]1.2 {ratio}NormalOhio Valley Surgical Hospital Comment on above:Performed By: #### HS TROP, PTT, PT, CBC, CMP ####[address] [address] USASerum or plasma anion gap determinationOrdered By: Sree Thao on 90-82-8856Wlxvb gap [Moles/Vol]11.2 mmol/LNormal6.0-15.0Ohio [facility] Surgical HospitalComment on above:Performed By: #### HS TROP, PTT, PT, CBC, CMP ####[address] [address] USASodium [Moles/volume] in Serum or PlasmaOrdered By: Sree Thao on 30-49-3240Ofipvm [Moles/Vol]136 mmol/NGdrqrq597-681IhxqhjsykOhio Valley Surgical HospitalComment on above:Performed By: #### HS TROP, PTT, PT, CBC, CMP ####[address] [address] USASpecific gravity Test strip (U) [Rel density] Ordered By: Sree Thao on 58-94-5195Mitilzch gravity (U) [Rel density] 1.0041.001-1.030Ohio Valley Surgical HospitalTroponin I High Sensitivityon 17-75-6317Jfkkliwi I High Cwcbzbkgpbo45Fbxzbc1-44Juh [facility] Comment on above:Result Comment: The Troponin units of report have been changed to meet the Chest Pain Accreditationrequirement, element EC5.M1l2. Troponin units are changed from pg/ml to ng/L. Also, the decimal is removed and results are in whole numbers.PERFORMED BY:[address] [place], [place] [phone] MEDICAL DIRECTORMARY SONI M.D.Performed By: #### HS TROP, PTT, PT, CBC, CMP ####[facility] [place] [address] USATroponin I.cardiac [Mass/volume] in Serum or Plasma by Detection limit <= 0.01 ng/mLOrdered By: Sree Thao on 45-48-6052Wihepcea I.cardiac DL <= 0.01 ng/mL [Mass/Vol]10 ng/L0-20Ohio [facility] Surgical HospitalComment on above:The Troponin units of report have been changed to meet the Chest Pain Accreditation requirement, element EC5.M1l2. Troponin units are changed from pg/ml to ng/L. Also, the decimal is removed and results are in whole numbers.Urea nitrogen [Mass/volume] in Serum or Plasma Ordered By: Sree Thao on 77-10-0038Ljnh nitrogen [Mass/Vol]16 mg/dL Normal7-[facility] Surgical HospitalComment on above:Performed By: #### HS TROP, PTT, PT, CBC, CMP ####[facility] [place] [address] USAUrine Cultureon 94-95-4385Tqplkcgx identified Cx Nom (U)NormalThe Unc Health Physician GroupComment on above:Performed By: #### CUU, ADDONUAPLUS ####[address] USAUrine cultureOrdered By: Sree Thao on 98-54-2562Xncagoia identified Cx Nom (U)Klebsiella pneumoniae (ESBL)AbnormalOhio Valley Surgical Hospital Urobilinogen Test strip (U) [Mass/Vol]Ordered By: Sree Thao on 31-05-5207Wgrnjixqtcsb (U) [Mass/Vol]Normal mg/dLNormalOhio Valley Surgical HospitalX-ray reportOrdered By: Shaquille Mahoney on 81-14-5850Okxvn report [facility] [address] [place] [address] XRay Report Signed Patient: Tavo Wallis Carson Murray MR# : [id number] : 1940 Acct:[id number] Age/Sex: 84 / M ADM Date: 5 Loc: ER Room: Type: [facility] ER Attending Dr: Copies to: Sree Thao [...] Mahoney M.D. 12/12/2024 1:46 PM Dictation Location: [place] [address] Transcribed By: [facility] 12/12/24 1346 Dictated By: Shaquille Mahoney II, MD 12/12/24 1342 Signed By: 12/12/24 1346 [facility] Work Phone: Study reportOhio Valley Surgical Hospital Work Phone: XR chest 2V*on 09-26-9657KB chest 2V*NormalThe Unc Health Physician GroupaPTT in Platelet poor plasma by Coagulation assay Ordered By: Sree Thao on 00-89-8638xXRE Coag (PPP) [Time]38.4 sHigh 25.1-36.5FCommunity Regional Medical CenterComment on above:A hematocrit value greater than 55% may lead to inaccurate results in coagulation testing. Patients having hematocrit values >55% require a special collection tube for coagulation studies. Please contact the laboratory at [phone] for redraw instructions. pH of Urine by Test stripOrdered By: Sree Thao on 13-60-0875iS (U)5.5 [pH]Normal5.0-9.0Ohio Valley Surgical HospitalComment on above:Order Comment: Name Collection Type:: Chou CatheterPerformed By: #### CUU, ADDONUAPLUS ####[facility] [address] [place], [place] [facility] CENTERMR lumbar spine wo/w conon 90-12-5284GZ lumbar spine wo/w conNormalThe Unc Health Physician GroupMagnetic resonance imaging reportOrdered By: Shaquille Mahoney on 89-24-3339Pznyk reportOHIOHEALTH NEL[facility]VIL[facility] [address] [place] [address] MRI Report Signed Patient: Tavo Wallis Jr MR# : [id number] : 1940 Acct:[id number] Age/Sex: 84 / M ADM Date: 5 Loc: MR Room: Type: [facility] Attending Dr: Keely Montoya APRN Copies [...] Mahoney M.D. 12/04/2024 1:30 PM Dictation Location: [place] [address] Transcribed By: NOLVIA 12/04/24 1330 Dictated By: Shaquille Mahoney II, MD 12/04/24 1323 Signed By: 12/04/24 1330 [facility] Work Phone: ct head/brain wo conon 76-16-8309MT head/brain wo con NormalThe Unc Health Physician GroupCT lumbar spine wo conon 01-74-0076MF lumbar spine wo conNormalThe Unc Health Physician GroupX-ray reportOrdered By: Esa Cardoso on 55-68-0148Fdblz reportOHIOHEALTH NEL[facility]VIL[facility] [address] [place] [address] [place], [place] [address] XRay Report Signed Patient: Tavo Wallis Jr MR# : [id number] : 1940 Acct:[id number] Age/Sex: 84 / M ADM Date: 5 Loc: CT Room: Type: [facility] Attending Dr: Jovany Stovall MD Copies [...] Cardoso M.D. 10/31/2024 5:40 PM Dictation Location: [facility]--20 Transcribed By: [facility] 10/31/241739 Dictated By: Esa Cardoso DO 10/31/241734 Signed By: 10/31/241739 [facility] Surgical HospitalXR lumbar spine 6V w bendingon 22-81-2862YJ lumbar spine 6V w bendingNoCritical access hospital Physician GroupBasic Metabolic Panelon 22-05-4259Zqdjgaiwhd Clr Calc Hutjukdp15.92NoCritical access hospital Physician GroupComment on above:Performed By: #### GOMEZ DOMINGUEZ, MG ####[address] [address] USAGFR/1.73 sq M.predicted MDRD (S/P/Bld) [Vol rate/Area]55.532 mL/min/{1.73_m2}NormalThe Unc Health Physician GroupComment on above:Performed By: #### GOMEZ DOMINGUEZ, MG ####[address] [address] USACalcium [Mass/volume] in Serum or PlasmaOrdered By: Franck Gagnon on 42-61-0325Rfgttdv [Mass/Vol]8.6 mg/dL Normal8.6-10.3FCommunity Regional Medical CenterComment on above:Performed By: #### GOMEZ DOMINGUEZ, MG ####[address] [address] USACarbon dioxide, total [Moles/volume] in Serum or PlasmaOrdered By: Frankc Gagnon on 87-86-0538MR3 [Moles/Vol]27.5 mmol/KWiqzjl31.0-31.0Ohio [facility] Surgical HospitalComment on above:Performed By: #### GOMEZ DOMINGUEZ, MG ####[address] [address] [place] Chloride [Moles/volume] in Serum or PlasmaOrdered By: Franck Gagnon on 10-08-2024 Chloride [Moles/Vol]98 mmol/KXcmusz39-985YjphlcszxOhio Valley Surgical Hospital Comment on above:Performed By: #### GOMEZ DOMINGUEZ, MG ####[address] [address] USACreatinine [Mass/volume] in Serum or PlasmaOrdered By: Franck Gagnon on 97-30-5257Zcdrmspodt [Mass/Vol]1.28 mg/dLNormal0.70-1.30[facility] Surgical HospitalComment on above:Performed By: #### GOMEZ DOMINGUEZ, MG ####[address] [address] USAErythrocyte distribution width [Ratio] by Automated countOrdered By: Franck Gagnon on 91-83-8648Jogbnhgfbar distribution width (RBC) [Ratio]17.7 %High12.0-14.8Ohio [facility] Surgical HospitalComment on above: Performed By: #### GOMEZ DOMINGUEZ MG ####[facility] [place] [address] USAErythrocytes [#/volume] in Blood by Automated count Ordered By: Franck Gagnon on 96-83-1223IYN (Bld) [#/Vol]2.63 10*6/uLLow3.90-5.60 [facility] Surgical HospitalComment on above:Performed By: #### GOMEZ DOMINGUEZ MG ####[place] [address] [place] [address] [place] Glucose [Mass/volume] in Serum or PlasmaOrdered By: Franck Gagnon on 10-08-2024 Glucose [Mass/Vol]95 mg/xPYfxwxo23-954BtdesejfjOhio Valley Surgical HospitalComment on above:ADA recommended reference rangeRandom Glucose [...] reference rangePerformed By: #### GOMEZ DOMINGUEZ MG ####[place] [address] [place] [address] USAHematocrit [Volume Fraction] of Blood by Automated countOrdered By: Franck Gagnon on 80-25-5360Menibvjqfc (Bld) [Volume fraction]24.1 %Low38.8-50.0[facility] Surgical HospitalComment on above: Performed By: #### GOMEZ DOMINGUEZ MG ####[place] [address] [place] [address] USAHemoglobin [Mass/volume] in BloodOrdered By: rFanck Gagnon on 85-13-4807Dtmjlzontn (Bld) [Mass/Vol]8.0 g/dLLow13.0-17.0[facility] Surgical HospitalComment on above:Performed By: #### GOMEZ DOMINGUEZ MG ####[place] [address] Hemogram CBC Without Diffon 42-29-0711Umdg Corpuscular HGB Conc33.2 g/dLNormal 32.5-35.6The Unc Health Physician GroupComment on above:Performed By: #### GOMEZ DOMINGUEZ, MG ####[place] [address] [address]White Blood Count6.0 [CFU]/mLNormal4.1-10.5The [facility] Comment on above:Performed By: #### GOMEZ DOMINGUEZ MG ####[address] StreetLeukocytes [#/volume] corrected for nucleated erythrocytes in Blood by Automated counOrdered By: Franck Gagnon on 62-93-6384OZI corrected for nucl RBC Auto (Bld) [#/Vol]6.0 10*3/uL 4.1-10.5FMercy Health Fairfield Hospital [Entitic mass] by Automated count Ordered By: Franck Gagnon on 15-59-9512SHX (RBC) [Entitic mass]30.4 pgNormal 27.5-35.2FCommunity Regional Medical CenterComment on above:Performed By: #### GOMEZ DOMINGUEZ, MG ####[place] [address] [facility]HC Auto (RBC) [Mass/Vol]Ordered By: Franck Gagnon on 00-54-2069YVHI (RBC) [Mass/Vol]33.2 g/dL32.5-35.6FSalem City HospitalV [Entitic volume] by Automated countOrdered By: Franck Gagnon on 31-70-3589LIO (RBC) [Entitic vol]91.5 zNYvbtiy08.5-101Ohio [facility] Surgical HospitalComment on above:Performed By: #### ALBERTO CBCNO, MG ####[place] [address] [place] [address] USAMagnesium [Mass/volume] in Serum or Plasma Ordered By: Franck Gagnon on 11-17-9552Etdngkizm [Mass/Vol]2.1 mg/dLNormal1.9-2.7 [facility] Surgical HospitalComment on above:Result Comment: PERFORMED BY:[place] [address] [address] [place], [place] [phone] MEDICAL MARY KATE SONI M.D.Performed By: #### CORA DOMINGUEZNO, MG ####[place] [address] [place] [address] USANo Panel InformationOrdered By: Franck Gagnon on 55-91-0804Pynfvemhh GFR (CKD-EPI)55.532 mL/[facility] CenterPharmacy Creatinine Clearance (Chem40.92[facility]55.532 mL/[facility]40.92[facility] Surgical HospitalPlatelet mean volume [Entitic volume] in Blood by Automated countOrdered By: Franck Gagnon on 26-74-8219Yhwbxrpw mean volume (Bld) [Entitic vol]7.5 fLNormal6.6-10.1FCommunity Regional Medical CenterComment on above:Result Comment: PERFORMED BY:[place] [address] [address] [place], [place] [phone] MEDICAL MARY KATE SONI M.D.Performed By: #### ALBERTO, CORANO, MG ####[address] [address] [place] Platelets [#/volume] in Blood by Automated countOrdered By: Franck Gagnon on 16-13-9467Kognhsmxa (Bld) [#/Vol]173 10*3/oVDcourq992-050BmmegyxqaOhio Valley Surgical HospitalComment on above:Performed By: #### BMP, CBCNO, MG ####[place] [address] [place] [address] USAPotassium [Moles/volume] in Serum or PlasmaOrdered By: Franck Gagnon on 35-08-7868Kouusmjwe [Moles/Vol]4.1 mmol/LNormal3.5-5.1FCommunity Regional Medical CenterComment on above:Performed By: #### GOMEZ DOMINGUEZ, MG ####[place] [address] [place] [address] USASerum or plasma anion gap determinationOrdered By: Franck Gagnon on 66-99-3111Kenmi gap [Moles/Vol]9.6 mmol/LNormal6.0-15.0 [facility] HospitalComment on above:Performed By: #### GOMEZ DOMINGUEZ, MG ####[address] [address] [place] Sodium [Moles/volume] in Serum or PlasmaOrdered By: Franck Gagnon on 10-08-2024 Sodium [Moles/Vol]131 mmol/ZEsb883-631TqhhvdcxtOhio Valley Surgical HospitalComment on above:Performed By: #### GOMEZ DOMINGUEZ, MG ####[address] [address] USAUrea nitrogen [Mass/volume] in Serum or PlasmaOrdered By: Franck Gagnon on 60-51-8107Kwon nitrogen [Mass/Vol]20 mg/dL Normal7-25Ohio [facility] Surgical HospitalComment on above:Performed By: #### GOMEZ DOMINGUEZ, MG ####[address] [address] USAAppearance of UrineOrdered By: Franck Gagnon on 24-12-5612Myjcamsqbw (U) CloudyCritically abnormalCleGrand Lake Joint Township District Memorial HospitalComment on above: Order Comment: Name Collection Type:: Chou CatheterPerformed By: #### CUU, ADDONUAPLUS ####[address] USABacteria [Presence] in Urine by AutomatedOrdered By: Franck Gagnon on 87-56-8490Skubaitu Auto Ql (U)Rare [HPF]None SeenOhio Valley Surgical HospitalBilirubin Test strip Ql (U)Ordered By: Franck Gagnon on 73-90-8180Yfnuwwwny Ql (U)NegativeNegativeOhio Valley Surgical HospitalCT head/brain wo conon 90-38-1602NA head/brain wo conNormalBaptist Health Wolfson Children'S Hospital Physician GroupCT head/brain wo conNormalBaptist Health Wolfson Children'S Hospital Physician GroupColor of Urine by AutoOrdered By: Franck Gagnon on 52-52-0834Mjedg (U)YellowNormalYellowOhio Valley Surgical HospitalComment on above:Order Comment: Name Collection Type:: Chou Catheter Performed By: #### CUU, ADDONUAPLUS ####[address] USADipstick and Microscopicon 58-93-1037Nmnimohz,Urine RareNormalNone SeenThe Unc Health Physician GroupComment on above:Order Comment: Name Collection Type:: Chou CatheterPerformed By: #### CUU, ADDONUAPLUS ####[address] [place] Bilirubin,UrineNegativeNormalNegativeBaptist Health Wolfson Children'S Hospital Physician GroupComment on above:Order Comment: Name Collection Type:: Chou CatheterPerformed By: #### CUU, ADDONUAPLUS ####[address] [address] USAGlucose Ql (U)NormalNormalNormalThe Unc Health Physician GroupComment on above:Order Comment: Name Collection Type:: Chou CatheterPerformed By: #### CUU, ADDONUAPLUS ####[address] [address] USAHyaline Casts,Jkjjt2-6Onkglb0-7Dcb Unc Health Physician GroupComment on above:Order Comment: Name Collection Type:: Chou CatheterPerformed By: #### CUU, ADDONUAPLUS ####[address] [address] USAMucus,UrineRareNormalBaptist Health Wolfson Children'S Hospital Physician GroupComment on above: Order Comment: Name Collection Type:: Chou CatheterResult Comment: PERFORMED BY:[place] [address] [address] [place], [place] [phone] MEDICAL DIRECTORMARY SONI M.D.Performed By: #### CUU, ADDONUAPLUS ####[address]lucianaMED[place], [place]K[address] USANitrite,UrineNegativeNormalNegativeBaptist Health Wolfson Children'S Hospital Physician GroupComment on above:Order Comment: Name Collection Type:: Chou CatheterPerformed By: #### CUU, ADDONUAPLUS ####[address] [address] USAOccult Blood,Urine3+NormalNegativeThe Unc Health Physician GroupComment on above:Order Comment: Name Collection Type:: Chou CatheterResult Comment: PERFORMED BY:[place] [address] [address] [place], [place] [phone] MEDICAL DIRECTORMARY SONI M.D.Performed By: #### CUU, ADDONUAPLUS ####[address] USARBC,UrineInnumerableNormal0-4The Unc Health Physician GroupComment on above:Order Comment: Name Collection Type:: Chou Catheter Performed By: #### CUU, ADDONUAPLUS ####[address] USASpecificy Randolph,Urine1.609Mjxqws0.001-1.030The Unc Health Physician GroupComment on above:Order Comment: Name Collection Type:: Chou CatheterPerformed By: #### CUU, ADDONUAPLUS ####[address]luc[address] [address] USAUrobilinogen,UrineNormalNormalNormal The Unc Health Physician GroupComment on above:Order Comment: Name Collection Type:: Chou CatheterPerformed By: #### CUU, ADDONUAPLUS ####[address] [address] USAWBC,UrineInnumerableNormal0-4 The Unc Health Physician GroupComment on above:Order Comment: Name Collection Type:: Chou CatheterPerformed By: #### CUU, ADDONUAPLUS ####[address] USAEpithelial cells.squamous [#/area] in Urine sediment by Automated countOrdered By: Franck Gagnon on 18-27-9837Blfodzelfl cells.squamous Auto (Urine sed) [#/Area]N/AFCommunity Regional Medical CenterErythrocytes [#/area] in Urine sediment by Automated countOrdered By: Franck Gagnon on 23-58-0999PWU Auto (Urine sed) [#/Area] Innumerable [HPF]High0-4FCommunity Regional Medical CenterGlucose [Mass/volume] in Urine by Test stripOrdered By: Franck Gagnon on 38-28-4988Vobkmwk Test strip (U) [Mass/Vol]Normal mg/dLNormalOhio Valley Surgical HospitalHemoglobin Test strip Ql (U)Ordered By: Franck Gagnon on 98-50-3549Edprcpchkn Ql (U)3+High NegativeOhio Valley Surgical HospitalHemogram CBC Without Diffon 10-07-2024 Erythrocyte distribution width (RBC) [Ratio]17.6 %High12.0-14.8The Unc Health Physician GroupComment on above:Performed By: #### CBCNO ####[place] [address] USAHematocrit (Bld) [Volume fraction]27.2 %Low38.8-50.0The Unc Health Physician GroupComment on above: Performed By: #### CBCNO ####[place] [address] USAHemoglobin (Bld) [Mass/Vol]8.9 g/dLLow13.0-17.0The Unc Health Physician GroupComment on above:Performed By: #### CBCNO ####[place] [address] USAMCH (RBC) [Entitic mass]30.2 lmHkddfq43.5-35.2The Unc Health Physician GroupComment on above: Performed By: #### CBCNO ####[place] [address] USAMCV (RBC) [Entitic vol]92.6 pCMeejwp07.5-101The [facility] Physician [facility] General HospitalComment on above:Performed By: #### CBCNO ####[place] [address] USAMean Corpuscular HGB Conc32.6 g/kVNbqdxa59.5-35.6The [facility] Physician [facility] HospitalComment on above: Performed By: #### CBCNO ####[place] [address] USAPlatelet mean volume (Bld) [Entitic vol]7.8 fLNormal 6.6-10.1The [facility] Physician [facility] General HospitalComment on above:Result Comment: PERFORMED BY:[address] [place], [place] [phone] MEDICAL DIRECTORMARY SONI M.D.Performed By: #### CBCNO ####[place] [address] [place] Platelets (Bld) [#/Vol]177 10*3/vYCalgaa980-481Mnd [facility] Comment on above:Performed By: #### CBCNO ####[place] [address] USARBC (Bld) [#/Vol]2.94 10*6/uLLow3.90-5.60The [facility] Physician [facility] General HospitalComment on above:Performed By: #### CBCNO ####[place] [address] USAWhite Blood Count6.7 [CFU]/mLNormal4.1-10.5The [facility] Physician [facility] General HospitalComment on above:Performed By: #### CBCNO ####[place] [address] USAHyaline casts [#/area] in Urine sediment by Automated countOrdered By: Franck Gagnon on 11-87-4374Jcjzeas casts Auto (Urine sed) [#/Area]0-8 [LPF]0-8 [facility] Surgical HospitalKetones [Presence] in Urine by Test strip Ordered By: Franck Gagnon on 06-69-4761Uyuomkj Ql (U)TraceNormalNegOhioHealth Grady Memorial HospitalComment on above:Order Comment: Name Collection Type:: Chou CatheterPerformed By: #### CUU, ADDONUAPLUS ####[place] [address] [place], [place] USALeukocyte esterase [Presence] in Urine by Test stripOrdered By: Franck Gagnon on 02-31-8003Zalmjjniw esterase Test strip Ql (U)3+NormalNegOhioHealth Grady Memorial HospitalComment on above: Order Comment: Name Collection Type:: Chou CatheterPerformed By: #### CUU, ADDONUAPLUS ####[address] USALeukocytes [#/area] in Urine sediment by Automated countOrdered By: Franck Gagnon on 28-41-4250SAG Auto (Urine sed) [#/Area]Innumerable [HPF]High0-4 [facility] HospitalMucus [Presence] in Urine by AutomatedOrdered By: Franck Gagnon on 15-75-8707Uehdf Auto Ql (U)Rare [LPF][facility] HospitalNitrite Test strip Ql (U)Ordered By: Franck Gagnon on 10-07-2024 Nitrite Ql (U)NegativeNegOhioHealth Grady Memorial HospitalProtein [Mass/volume] in Urine by Test stripOrdered By: Franck Gagnon on 10-07-2024 Protein (U) [Mass/Vol]100 mg/dLNoFairfield Medical Center Comment on above:Order Comment: Name Collection Type:: Chou CatheterPerformed By: #### CUU, ADDONUAPLUS ####[address] USASpecific gravity Test strip (U) [Rel density]Ordered By: Franck Gagnon on 53-69-2795Ocysadkz gravity (U) [Rel density]1.0281.001-1.030 [facility] HospitalUrine Cultureon 33-90-6709Bovdfvef identified Cx Nom (U)No Growth 2 Days PERFORMED BY: [facility] [address] [place] [address] PATHOLOGIST EXPLOSIVE ORDNANCE TECHNICIAN MARY SONI M.D.[facility] Physician GroupComment on above: Performed By: #### CUU, ADDONUAPLUS ####[address] USAUrine cultureOrdered By: Franck Gagnon on 10-07-2024 Bacteria identified Cx Nom (U)No Growth 2 DaysOhio Valley Surgical Hospital Urobilinogen Test strip (U) [Mass/Vol]Ordered By: Franck Gagnon on 10-07-2024 Urobilinogen (U) [Mass/Vol]Normal mg/dLNormalOhio Valley Surgical HospitalX- ray reportOrdered By: Shaquille Mahoney on 13-37-4221Dvubq reportOhio Valley Surgical Hospital Work Phone: XR chest 1V portableon 62-26-9389SL chest 1V portable NormalThe Unc Health Physician Forrest General HospitalpH of Urine by Test stripOrdered By: Franck Gagnon on 75-22-1683vW (U)5.5 [pH]Normal5.0-9.0[facility] Comment on above:Order Comment: Name Collection Type:: Chou CatheterPerformed By: #### CUU, ADDONUAPLUS ####[address] USABlood Cultureon 68-82-1488Mjevvqiw identified Cx Nom (Bld)NO GROWTH 5 DAYS PERFORMED BY: [facility] [address] [place] [address] PATHOLOGIST EXPLOSIVE ORDNANCE TECHNICIAN MARY SONI M.D.NormalBaptist Health Wolfson Children'S Hospital Physician GroupComment on above: Performed By: #### CUBLD ####[address] [address] USABacteria identified Cx Nom (Bld)NO GROWTH 5 DAYS PERFORMED BY: [facility] [address] [place] [address] PATHOLOGIST EXPLOSIVE ORDNANCE TECHNICIAN MARY SONI M.D.[facility] Physician GroupComment on above: Performed By: #### CUBLD ####[address] [place] [address] USACT head/brain wo conon 06-61-9818RB head/brain wo conNormalThe Unc Health Physician GroupCapillary blood glucose measurement by glucometer (mass/volume)Ordered By: Franck Gagnon on 97-24-6252Efduwcs [Mass/Vol] 102 mg/dLWyandot Memorial HospitalComment on above:Random Glucose Reference Range is dependent on time and content of last meal. Glucose of more than 200 mg/dL in a nonstressed, ambulatory subject supports the diagnosis of Diabetes Mellitus.Result Comment: Random Glucose Reference Range is dependent on time and content of last meal. Glucose of more than 200 mg/dL in a nonstressed, ambulatory subject supports the diagnosis of Diabetes Mellitus.PERFORMED BY:[place] [address] [place], [place] [phone] MEDICAL DIRECTORMARY SONI M.D.Performed By: #### GLULS ####Point of Care testing,Dipstick and MicroscopicOrdered By: Frankie Reynolds on 14-22-5219Svpbobcbcs (U)clearNormalClearOhio Valley Surgical HospitalComment on above:Order Comment: Name Collection Type:: Chou Catheter Performed By: #### RAGHAVENDRA, CUU ####[facility] Andrewn[address] hospital tuscaloosasheliaMED[place], [place]YZ[address] USAKetones Ql (U)NegativeNormalNegOhioHealth Grady Memorial HospitalComment on above:Order Comment: Name Collection Type:: Chou CatheterPerformed By: #### RAGHAVENDRA, CUU ####[address] [facility], [place] USALeukocyte esterase Test strip Ql (U)4+ NormalNegOhioHealth Grady Memorial HospitalComment on above:Order Comment: Name Collection Type:: Chou CatheterPerformed By: #### OCTAVIANOPLUS, CUU ####[address] [facility] [place], [place] USApH (U) 5.5 [pH]Normal5.0-9.0Ohio Valley Surgical HospitalComment on above:Order Comment: Name Collection Type:: Chou CatheterPerformed By: #### ADDONUAPLUS, CUU ####[address] [place] Dipstick and Microscopicon 88-10-0960Xaowrmao,Urine1+ [HPF]NormalNone SeenThe Unc Health Physician GroupComment on above:Order Comment: Name Collection Type:: Chou CatheterPerformed By: #### ADDONUAPLUS, CUU ####[address] USABilirubin,UrineNegativeNormalNegative [facility] Physician GroupComment on above:Order Comment: Name Collection Type:: Chou CatheterPerformed By: #### ADDONUAPLUS, CUU ####[address] USAColor (U)Light-YellowNormal YellowBaptist Health Wolfson Children'S Hospital Physician GroupComment on above:Order Comment: Name Collection Type:: Chou CatheterPerformed By: #### ADDONUAPLUS, CUU ####[address] USAGlucose Ql (U)NormalNormalNormalThe Unc Health Physician GroupComment on above:Order Comment: Name Collection Type:: Chou CatheterPerformed By: #### ADDONUAPLUS, CUU ####[address] [place] [place] Hyaline Casts,UrineNoneNormal0-8The Unc Health Physician GroupComment on above: Order Comment: Name Collection Type:: Chou CatheterPerformed By: #### ADDONUAPLUS, CUU ####[address] [address] USAMucus,UrineRareNormalBaptist Health Wolfson Children'S Hospital Physician GroupComment on above: Order Comment: Name Collection Type:: Chou CatheterResult Comment: PERFORMED BY:[address] [place], [place] [phone] MEDICAL DIRECTORMARADILENE S NAE M.D.Performed By: #### ADDONUAPLUS, CUU ####[address] [address] USANitrite,UrinePositiveNormalNegativeThe Unc Health Physician GroupComment on above:Order Comment: Name Collection Type:: Chou CatheterPerformed By: #### ADDONUAPLUS, CUU ####[address] USAOccult Blood,Urine2+NormalNegativeThe Un[facility] Physician Group Comment on above:Order Comment: Name Collection Type:: Chou CatheterResult Comment: PERFORMED BY:[address] [place], [place] [phone] MEDICAL MARY KATE SONI M.D.Performed By: #### ADDONUAPLUS, CUU ####[address] USAProtein,UrineTraceNormalNegativeThe Unc Health Physician GroupComment on above:Order Comment: Name Collection Type:: Chou CatheterPerformed By: #### ADDONUAPLUS, CUU ####[address] USARBC,Otamv49-30Jlxplr2-7Wgx Unc Health Physician GroupComment on above:Order Comment: Name Collection Type:: Chou CatheterPerformed By: #### ADDONUAPLUS, CUU ####[address] USASpecificy Randolph,Urine1.018Normal 1.001-1.030The Unc Health Physician GroupComment on above:Order Comment: Name Collection Type:: Chou CatheterPerformed By: #### ADDONUAPLUS, CUU ####[address] [place] Urobilinogen,UrineNormalNormalNormalThe Unc Health Physician GroupComment on above:Order Comment: Name Collection Type:: Chou CatheterPerformed By: #### ADDONUAPLUS, CUU ####[facility] [address] [place] [address] USAWBC,Kzgxo35-27Lckufo1-9Ncn Unc Health Physician GroupComment on above: Order Comment: Name Collection Type:: Chou CatheterPerformed By: #### ADDTINO, CUU ####[facility] [address] [place] [address] USALaboratory - Chemistry and Chemistry - challengeOrdered By: Frankie Reynolds on 85-03-2697Kpagefozw Ql (U)NegativeOhio Valley Surgical Hospital Specific gravity (U) [Rel density]1.018[facility] Laboratory - Microbiology and Antimicrobial susceptibilityOrdered By: Franck Gagnon on 88-66-4984Xobsjbsm identified Cx Nom (Bld)NO GROWTH [address] [place], [place] [address]Bacteria identified Cx Nom (Bld)NO GROWTH [facility] - Specimen informationOrdered By: Frankie Reynolds on 90-43-2813Ehzrd (U)lightyellowOhio Valley Surgical Hospital Laboratory - UrinalysisOrdered By: Frankie Reynolds on 31-02-7996Ccixeir Ql (U) PositiveOhio Valley Surgical HospitalProtein Ql (U)TraceOhio Valley Surgical HospitalMRSA - MSSA Nasal PCRon 48-41-0456YFUS - MSSA Nasal PCRNormalThe Unc Health Physician GroupComment on above:Performed By: #### MRSA - MSSA PCR ####[facility] [address] [place] [address] USANo Panel InformationOrdered By: Michele Knight on 86-66-9832Waddx Screen MRSA/MSSA [facility] HospitalNo Panel InformationOrdered By: Franck Gagnon on 96-09-6665FA GROWTH 5 DAYSOhio Valley Surgical HospitalNO GROWTH DAYS [facility] HospitalNo Panel InformationOrdered By: Frankie Reynolds on 21-26-4770Sysyd Collection TypeSee commentOhio Valley Surgical Hospital Comment on above:naUrine Glucose (UA)NormalOhio Valley Surgical Hospital Urine Occult BloodSee commentOhio Valley Surgical HospitalComment on above: not doneUrine UrobilinogenNormalBlanchard Valley Health System Blanchard Valley Hospitalee comment [facility] HospitallightyellowOhio Valley Surgical Hospital clearOhio Valley Surgical HospitalNormalOhio Valley Surgical Hospital NegativeOhio Valley Surgical Hospital1.018[facility] 5.5FCommunity Regional Medical CenterTraceOhio Valley Surgical Hospital PositiveOhio Valley Surgical Hospital4+[facility] Urine Cultureon 04-85-6396Vtcvykrg identified Cx Nom (U)NormalThe Unc Health Physician GroupComment on above:Performed By: #### RAGHAVENDRA, CUU ####[facility] [address] [place], [place] USAUrine cultureOrdered By: Franck Gagnon on 65-02-7383Gpxdnxgf identified Cx Nom (U) Enterococcus faecalisAbHolzer Medical Center – JacksonAlanine aminotransferase [Enzymatic activity/volume] in Serum or PlasmaOrdered By: Terence Steele on 75-60-3796CEJ [Catalytic activity/Vol]6 U/LLow7-52Ohio [facility] Surgical HospitalComment on above:Performed By: #### CBC, CMP, PTT, PT ####[facility] [address] [place] [address] USAAlbumin [Mass/volume] in Serum or Plasma by Bromocresol green (BCG) dye binding metho Ordered By: Terence Steele on 85-18-7286Dbrseer BCG dye [Mass/Vol]3.5 g/dL3.5-5.7 [facility] Surgical HospitalAlkaline phosphatase [Enzymatic activity/volume] in Serum or PlasmaOrdered By: Terence Steele on 28-30-1932POL [Catalytic activity/Vol]157 U/WCanh48-385WxxdguiraOhio Valley Surgical Hospital Comment on above:Performed By: #### CBC, CMP, PTT, PT ####[facility] [address] [place] [address] USAAspartate aminotransferase [Enzymatic activity/volume] in Serum or PlasmaOrdered By: Terence Steele on 81-72-9755PMJ [Catalytic activity/Vol]16 U/UPtkuvu39-70EmjqrzcshOhio Valley Surgical HospitalComment on above:Performed By: #### CBC, CMP, PTT, PT ####[facility] [address] [place] [address] [place] Basophils [#/volume] in Blood by Automated countOrdered By: Terence Steele on 07-93-8348Kqxbsulgx (Bld) [#/Vol]0.0 10*3/uLNormal0.0-0.2FCommunity Regional Medical CenterComment on above:Result Comment: PERFORMED BY:[address] [place], [place] [phone] MEDICAL DIRECTORMARY SONI M.D.Performed By: #### CBC, CMP, PTT, PT ####[address] [address] USABasophils/100 leukocytes in Blood by Automated countOrdered By: Terence Steele on 10-05-2024 Basophils/100 WBC (Bld)0.4 %Normal.Ohio [facility] Surgical HospitalComment on above:Performed By: #### CBC, CMP, PTT, PT ####[address] [address] USABilirubin.total [Mass/volume] in Serum or PlasmaOrdered By: Terence Steele on 10-26-5044Qhwsfhzfv [Mass/Vol]0.6 mg/dL Normal0.3-1.0Ohio [facility] Surgical HospitalComment on above:Performed By: #### CBC, CMP, PTT, PT ####[address] [address] USACT cervical spine wo [facility] 08-03-2304BW cervical spine wo conNAtrium Health Physician GroupCT facial bones wo [facility] & sports medicineon 21-60-8209NT facial bones wo conNAtrium Health Physician GroupCT head/brain wo [facility] 56-03-0791FC head/brain wo conNAtrium Health Physician Group Calcium [Mass/volume] in Serum or PlasmaOrdered By: Terenec Steele on 10-05-2024 Calcium [Mass/Vol]9.4 mg/dLNormal8.6-10.3FCommunity Regional Medical Center Comment on above:Performed By: #### CBC, CMP, PTT, PT ####[address] [address] USACarbon dioxide, total [Moles/volume] in Serum or PlasmaOrdered By: Terence Steele on 64-70-5961OR8 [Moles/Vol]25.9 mmol/ZRtkvjr94.0-31.0Ohio [facility] Surgical HospitalComment on above:Performed By: #### CBC, CMP, PTT, PT ####[address] [address] USAChloride [Moles/volume] in Serum or PlasmaOrdered By: Terence Steele on 35-00-0754Qzfmfmdj [Moles/Vol]102 mmol/LNormal 98-107Ohio [facility] Surgical HospitalComment on above:Performed By: #### CBC, CMP, PTT, PT ####[address] [address] USAComplete Blood Count Auto Diffon 24-37-4633Yfpk Corpuscular HGB Conc 33.1 g/hXOxpwpr04.5-35.6The Unc Health Physician GroupComment on above:Performed By: #### CBC, CMP, PTT, PT ####[address] [address] USAMonocytes/100 WBC (Bld)19.41 %Normal0.00-20.00The Unc Health Physician GroupComment on above:Performed By: #### CBC, CMP, PTT, PT ####[address] [address] USANRBC% 0.2 /100{WBC}Normal0-0.5The Unc Health Physician GroupComment on above:Performed By: #### CBC, CMP, PTT, PT ####[address] [address] USAWhite Blood Count5.7 [CFU]/mLNormal4.1-10.5The Unc Health Physician GroupComment on above:Performed By: #### CBC, CMP, PTT, PT ####[address] [address] [place] Comprehensive Metabolic Panelon 83-94-0386Qpxbzvv [Mass/Vol]3.5 g/dLNormal 3.5-5.7The Unc Health Physician GroupComment on above:Performed By: #### CBC, CMP, PTT, PT ####[address] [place] [address] USACreatinine Clr Calc Hhbuycrr67.79NoCritical access hospital Physician Group Comment on above:Result Comment: PERFORMED BY:[address] [place], [place] [phone] MEDICAL DIRECTORMARY SONI M.D.Performed By: #### CBC, CMP, PTT, PT ####[address] [address] USAGFR/1.73 sq M.predicted MDRD (S/P/Bld) [Vol rate/Area]mL/min/{1.73_m2}NormalThe Unc Health Physician [facility] HospitalComment on above:Performed By: #### CBC, CMP, PTT, PT ####[address] [place] Creatinine [Mass/volume] in Serum or PlasmaOrdered By: Terence Steele on 18-08-7856Vcxhhkaplh [Mass/Vol]1.11 mg/dLNormal0.70-1.30Ohio [facility] Surgical HospitalComment on above:Performed By: #### CBC, CMP, PTT, PT ####[address] [address] USAECG 12 lead ECGon 91-94-0952ZVI 12 lead ECGAdventHealth Ocala Physician [facility] Eosinophils [#/volume] in Blood by Automated countOrdered By: Terence Steele on 31-03-7577Euteogdooku (Bld) [#/Vol]0.3 10*3/uLNormal0.0-0.45Ohio [facility] Surgical HospitalComment on above:Performed By: #### CBC, CMP, PTT, PT ####[address] [place] Eosinophils/100 leukocytes in Blood by Automated countOrdered By: Terence Steele on 01-68-6234Exukemprilg/100 WBC (Bld)4.7 %Normal.[facility] Surgical HospitalComment on above:Performed By: #### CBC, CMP, PTT, PT ####[address] [address] USAErythrocyte distribution width [Ratio] by Automated countOrdered By: Terence Steele on 83-17-0157Sbtcffdmecl distribution width (RBC) [Ratio]17.5 %High12.0-14.8 [facility] Surgical HospitalComment on above:Performed By: #### CBC, CMP, PTT, PT ####[address] [address] USAErythrocytes [#/volume] in Blood by Automated countOrdered By: Terence Steele on 16-56-8781GAW (Bld) [#/Vol]3.08 10*6/uLLow3.90-5.60[facility] Surgical HospitalComment on above:Performed By: #### CBC, CMP, PTT, PT ####[address] [address] USAGlucose [Mass/volume] in Serum or PlasmaOrdered By: Terence Steele on 60-48-8536Ucexoim [Mass/Vol]105 mg/zVGady21-577OgrtpxuchOhio Valley Surgical HospitalComment on above:Result Comment: Random Glucose Reference Range is dependent on time and content of last meal. Glucose of more than 200 mg/dL in a nonstressed, ambulatory subject supports the diagnosis of Diabetes Mellitus. ADA recommended reference rangePerformed By: #### CBC, CMP, PTT, PT ####[address] [address] USAHematocrit [Volume Fraction] of Blood by Automated countOrdered By: Terence Steele on 16-61-7574Hgjfqvezzi (Bld) [Volume fraction] 28.3 %Low38.8-50.0[facility] Surgical HospitalComment on above:Performed By: #### CBC, CMP, PTT, PT ####[address] [address] USAHemoglobin [Mass/volume] in BloodOrdered By: Terence Steele on 63-12-0081Ddgajbyyug (Bld) [Mass/Vol]9.3 g/dLLow13.0-17.0[facility] HospitalComment on above:Performed By: #### CBC, CMP, PTT, PT ####[address] [place] [address] USAINR in Platelet poor plasma by Coagulation assayOrdered By: Terence Steele on 10-05-2024 INR Coag (PPP) [Relative time]2.4 {INR}NormalOhio Valley Surgical Hospital Comment on above:INR Therapeutic Range A) [...] 4.5Performed By: #### CBC, CMP, PTT, PT ####[address] [place] [address] [place] Leukocytes [#/volume] corrected for nucleated erythrocytes in Blood by Automated counOrdered By: Terence Steele on 38-69-8983YEW corrected for nucl RBC Auto (Bld) [#/Vol]5.7 10*3/uL4.1-10.5FCommunity Regional Medical CenterLeukocytes [#/volume] in Blood by Automated countOrdered By: Terence Steele on 48-62-7058EGX (Bld) [#/Vol]5.7 10*3/uLNormal4.1-10.5FCommunity Regional Medical CenterComment on above:Performed By: #### CBC, CMP, PTT, PT ####[address] [place] [address] USALymphocytes [#/volume] in Blood by Automated countOrdered By: Terence Steele on 49-03-3052Zvqzzifrgno (Bld) [#/Vol] 1.1 10*3/uLNormal1.00-4.8[facility] Surgical HospitalComment on above: Performed By: #### CBC, CMP, PTT, PT ####[facility] [address] [place] [address] USALymphocytes/100 leukocytes in Blood by Automated countOrdered By: Terence Steele on 19-12-0085Cixgfdmulwo/100 WBC (Bld) 19.8 %Normal.[facility] Surgical HospitalComment on above:Performed By: #### CBC, CMP, PTT, PT ####[address] [address] [facility] [Entitic mass] by Automated countOrdered By: Terence Steele on 87-31-4999JOC (RBC) [Entitic mass]30.3 jkWhybre62.5-35.2 [facility] HospitalComment on above:Performed By: #### CBC, CMP, PTT, PT ####[address] [address] [facility] LA[facility]ONHC Auto (RBC) [Mass/Vol]Ordered By: Terence Steele on 93-85-0702IQCZ (RBC) [Mass/Vol]33.1 g/dL32.5-35.6FCommunity Regional Medical CenterMCV [Entitic volume] by Automated countOrdered By: Terence Steele on 01-99-1513AOE (RBC) [Entitic vol]91.7 eHPrxghf73.5-101Ohio [facility] Surgical HospitalComment on above:Performed By: #### CBC, CMP, PTT, PT ####[facility] [address] [place] [address] USAMonocyte distribution width [Entitic volume] in Blood by AutomatedOrdered By: Terence Steele on 26-82-5571Ithnhujb distribution width Auto (Bld) [Entitic vol]19.41 %0.00-20.00[facility] Surgical HospitalMonocytes [#/volume] in Blood by Automated countOrdered By: Terence Steele on 35-07-4525Vfdccudsm (Bld) [#/Vol]0.6 10*3/uLNormal0.0-0.8[facility] Surgical HospitalComment on above:Performed By: #### CBC, CMP, PTT, PT ####[facility] [place] [address] [place] Monocytes/100 leukocytes in Blood by Automated countOrdered By: Terence Steele on 32-77-3148Bamxxecvo/100 WBC (Bld)9.9 %Normal.[facility] Comment on above:Performed By: #### CBC, CMP, PTT, PT ####[address] [place] [address] USANeutrophils [#/volume] in Blood by Automated countOrdered By: Terence Steele on 71-39-7472Gpjmmlnqwyf (Bld) [#/Vol]3.7 10*3/uLNormal1.8-7.7FCommunity Regional Medical CenterComment on above:Performed By: #### CBC, CMP, PTT, PT ####[address] [place] [address] USANeutrophils/100 leukocytes in Blood by Automated countOrdered By: Terence Steele on 77-21-6196Sbgexiwlbtt/100 WBC (Bld) 65.2 %Normal.[facility] Surgical HospitalComment on above:Performed By: #### CBC, CMP, PTT, PT ####[address] [address] USANo Panel InformationOrdered By: Terence Steele on 10-05-2024> 60.0 mL/MinOhio Valley Surgical Hospital44.79Ohio [facility] Surgical HospitalNucleated erythrocytes [Presence] in Blood by Automated count Ordered By: Terence Steele on 17-07-0482Tsnsikssl RBC Auto Ql (Bld)0.2 /100{WBC} 0-0.5FCommunity Regional Medical CenterPartial Thromboplastin Timeon 10-05-2024 aPTT Coag (Bld) [Time]41.0 sHigh25.1-36.5The Unc Health Physician GroupComment on above:Result Comment: A hematocrit value greater than 55% may lead to inaccurate results in coagulation testing. Patients having hematocrit values >55% require a special collection tube for coagulation studies. Please contact the laboratory at [phone] for redraw instructions.PERFORMED BY:[address] [place], [place] [phone] MEDICAL DIRECTORMARY SONI M.D.Performed By: #### CBC, CMP, PTT, PT ####[address] [address] [facility] Platelet mean volume [Entitic volume] in Blood by Automated countOrdered By: Terence Steele on 29-34-3551Yklzyvgq mean volume (Bld) [Entitic vol]7.7 fLNormal 6.6-10.1FCommunity Regional Medical CenterComment on above:Performed By: #### CBC, CMP, PTT, PT ####[address] [address] USAPlatelets [#/volume] in Blood by Automated countOrdered By: Terence Steele on 53-23-9349Vfdnlvxmd (Bld) [#/Vol]217 10*3/sBZrvkeh101-845ZjokjnjwoOhio Valley Surgical HospitalComment on above:Performed By: #### CBC, CMP, PTT, PT ####[address] [facility] Potassium [Moles/volume] in Serum or PlasmaOrdered By: Terence Steele on 93-47-9428Nbpulmekq [Moles/Vol]4.2 mmol/LNormal3.5-5.1FCommunity Regional Medical CenterComment on above:Performed By: #### CBC, CMP, PTT, PT ####[address] [address] USAProtein [Mass/volume] in Serum or PlasmaOrdered By: Terence Steele on 36-93-4288Nfsxwge [Mass/Vol]6.7 g/dLNormal6.4-8.9[facility] HospitalComment on above:Performed By: #### CBC, CMP, PTT, PT ####[address] [address] USAProthrombin time (PT)Ordered By: Terence Steele on 20-76-7612NT Coag (PPP) [Time]26.6 sHigh9.0-12.9[facility] Surgical HospitalComment on above:A hematocrit value greater than 55% may lead to inaccurate results in coagulation testing. Patientshaving hematocrit values >55% require a special collection tube for coagulation studies. Please contact the laboratory at [phone] for redraw instructions.Result Comment: A hematocrit value greater than 55% may lead to inaccurate results in coagulation testing. Patients having hematocrit values >55% require a special collection tube for coagulation studies. Please contact the laboratory at [phone] for redraw instructions.Performed By: #### CBC, CMP, PTT, PT ####[address] [place] [address] USASerum globulin measurement by calculation (mass/volume)Ordered By: Terence Steele on 90-20-6771Fojubrwv (S) [Mass/Vol]3.2 g/dLNormalOhio Valley Surgical HospitalComment on above: Performed By: #### CBC, CMP, PTT, PT ####[address] USASerum or plasma albumin/globulin mass ratio Ordered By: Terence Steele on 87-05-3605Eoltjvn/Globulin [Mass ratio]1.1 {ratio} NormalOhio Valley Surgical HospitalComveterans affairs ann [facility] system on above:Performed By: #### CBC, CMP, PTT, PT ####[address] USASerum or plasma anion gap determinationOrdered By: Terence Steele on 00-01-0428Htwxu gap [Moles/Vol]13.3 mmol/LNormal6.0-15.0[facility] HospitalComment on above:Performed By: #### CBC, CMP, PTT, PT ####[address] [address] USASodium [Moles/volume] in Serum or PlasmaOrdered By: Terence Steele on 58-66-2904Jpwspo [Moles/Vol]137 mmol/POqodpb989-356FnlrhzkmvOhio Valley Surgical HospitalComment on above:Performed By: #### CBC, CMP, PTT, PT ####[address] [address] USAUrea nitrogen [Mass/volume] in Serum or PlasmaOrdered By: Terence Steele on 00-52-4406Ujpp nitrogen [Mass/Vol]18 mg/dL Normal7-25Ohio [facility] Surgical HospitalComment on above:Performed By: #### CBC, CMP, PTT, PT ####[address] [address] USAaPTT in Platelet poor plasma by Coagulation assayOrdered By: Terence Steele on 90-96-5728hERX Coag (PPP) [Time]41.0 sHigh25.1-36.5FCommunity Regional Medical CenterComment on above:A hematocrit value greater than 55% may lead to inaccurate results in coagulation testing. Patientshaving hematocrit values >55% require a special collection tube for coagulation studies. Please contact the laboratory at [phone] for redraw instructions.Basic Metabolic Panelon 62-08-3684UFB/1.73 sq M.predicted MDRD (S/P/Bld) [Vol rate/Area]mL/min/{1.73_m2} NormalThe Unc Health Physician GroupComment on above:Performed By: #### CBC, BMP ####[address] [address] [place] Basophils [#/volume] in Blood by Automated countOrdered By: Bhupinder Mcintyre on 09-26-3550Rtnmtlpck (Bld) [#/Vol]0.0 10*3/uLNormal0.0-0.2FCommunity Regional Medical CenterComment on above:Result Comment: PERFORMED BY:[address] [place], [place] [phone] MEDICAL MARY KATE SONI M.D.Performed By: #### CBC, BMP ####[address] [address] USABasophils/100 leukocytes in Blood by Automated countOrdered By: Bhupinder Mcintyre on 31-99-2994Wpgtmqfqb/100 WBC (Bld)1.0 %Normal.[facility] HospitalComment on above:Performed By: #### CBC, BMP ####[address] [address] USACalcium [Mass/volume] in Serum or PlasmaOrdered By: Bhupinder Mcintyre on 05-82-5896Yfqlbza [Mass/Vol]8.7 mg/dLNormal8.6-10.3FCommunity Regional Medical CenterComment on above:Result Comment: PERFORMED BY:[address] [place], [place] [phone] MEDICAL DIRECTORMARY SONI M.D.Performed By: #### CBC, BMP ####[address] [address] USACarbon dioxide, total [Moles/volume] in Serum or PlasmaOrdered By: Bhupinder Mcintyre on 62-64-2275VQ2 [Moles/Vol]29.5 mmol/HYgyovx71.0-31.0[facility] HospitalComment on above:Performed By: #### CBC, BMP ####[address] [address] USAChloride [Moles/volume] in Serum or PlasmaOrdered By: Bhupinder Mcintyre on 37-65-4461Zyzhzqxl [Moles/Vol]103 mmol/KZalmns99-185EpaaufhyiOhio Valley Surgical HospitalComment on above:Performed By: #### CBC, BMP ####[address] [address] [facility] Complete Blood Count Auto Diffon 43-14-0353Cwwj Corpuscular HGB Conc32.5 g/dL Qtauyh81.5-35.6The Unc Health Physician GroupComment on above:Performed By: #### CBC, BMP ####[address] [address] USANRBC%0.2 /100{WBC}Normal0-0.5The Unc Health Physician GroupComment on above: Performed By: #### CBC, BMP ####[address] [place] [address] USAWhite Blood Count4.5 [CFU]/mLNormal4.1-10.5The Unc Health Physician GroupComment on above:Performed By: #### CBC, BMP ####[address] [place] Creatinine [Mass/volume] in Serum or PlasmaOrdered By: Bhupinder Mcintyre on 09-24-2024 Creatinine [Mass/Vol]1.08 mg/dLNormal0.70-1.30[facility] Comment on above:Performed By: #### CBC, BMP ####[address] USAEosinophils [#/volume] in Blood by Automated countOrdered By: Bhupinder Mcintyre on 47-82-1026Nwhtrdczunf (Bld) [#/Vol]0.3 10*3/uLNormal0.0-0.45[facility] HospitalComment on above:Performed By: #### CBC, BMP ####[address] USAEosinophils/100 leukocytes in Blood by Automated countOrdered By: Bhupinder Mcintyre on 28-53-9362Reqnjxusmrn/100 WBC (Bld)7.2 %Normal.[facility] HospitalComment on above:Performed By: #### CBC, BMP ####[address] USAErythrocyte distribution width [Ratio] by Automated countOrdered By: Bhupinder Mcintyre on 09-24-2024 Erythrocyte distribution width (RBC) [Ratio]17.4 %High12.0-14.8[facility] Surgical HospitalComment on above:Performed By: #### CBC, BMP ####[address] [place] Erythrocytes [#/volume] in Blood by Automated countOrdered By: Bhupinder Mcintyre on 02-50-9493NDS (Bld) [#/Vol]2.99 10*6/uLLow3.90-5.60[facility] HospitalComment on above:Performed By: #### CBC, BMP ####[address] [address] USAGlucose [Mass/volume] in Serum or PlasmaOrdered By: Bhupinder Mcintyre on 98-28-2031Htjtcwp [Mass/Vol]80 mg/dLNormal 70-100Ohio Valley Surgical HospitalComment on above:ADA recommended reference rangeRandom Glucose [...] recommended reference rangePerformed By: #### CBC, BMP ####[address] [address] USAHematocrit [Volume Fraction] of Blood by Automated countOrdered By: Bhupinder Mcintyre on 29-96-7571Qjdaxwgume (Bld) [Volume fraction]27.6 %Low38.8-50.0 [facility] HospitalComment on above:Performed By: #### CBC, BMP ####[address] [address] [place] Hemoglobin [Mass/volume] in BloodOrdered By: Bhupinder Mcintyre on 53-28-8334Fbwaevohmv (Bld) [Mass/Vol]9.0 g/dLLow13.0-17.0[facility] Surgical HospitalComment on above:Performed By: #### CBC, BMP ####[address] [address] USALeukocytes [#/volume] corrected for nucleated erythrocytes in Blood by Automated counOrdered By: Bhupinder Mcintyre on 63-79-4928JQX corrected for nucl RBC Auto (Bld) [#/Vol]4.5 10*3/uL4.1-10.5FCommunity Regional Medical CenterLeukocytes [#/volume] in Blood by Automated countOrdered By: Bhupinder Mcintyre on 50-17-1476LAZ (Bld) [#/Vol]4.5 10*3/uLNormal4.1-10.5FCommunity Regional Medical CenterComment on above:Performed By: #### CBC, BMP ####[address] [address] [place] Lymphocytes [#/volume] in Blood by Automated countOrdered By: Bhupinder Mcintyre on 14-76-2838Bgbyzoeflbr (Bld) [#/Vol]1.3 10*3/uLNormal1.00-4.8[facility] Surgical HospitalComment on above:Performed By: #### CBC, BMP ####[address] [address] USALymphocytes/100 leukocytes in Blood by Automated countOrdered By: Bhupinder Mcintyre on 09-24-2024 Lymphocytes/100 WBC (Bld)29.5 %Normal.[facility] Surgical HospitalComment on above:Performed By: #### CBC, BMP ####[address] [address] [facility] [Entitic mass] by Automated countOrdered By: Bhupinder Mcintyre on 61-01-2258TPI (RBC) [Entitic mass]30.0 gvZxqdkk11.5-35.2 [facility] HospitalComment on above:Performed By: #### CBC, BMP ####[address] [address] [facility] Auto (RBC) [Mass/Vol]Ordered By: Bhupinder Mcintyre on 76-07-0857TAKQ (RBC) [Mass/Vol] 32.5 g/dL32.5-35.6FSalem City HospitalV [Entitic volume] by Automated countOrdered By: Bhupinder Mcintyre on 18-10-5915LFS (RBC) [Entitic vol]92.3 fL Mnhioj93.5-101Ohio [facility] Surgical HospitalComment on above:Performed By: #### CBC, BMP ####[address] [address] USAMonocytes [#/volume] in Blood by Automated countOrdered By: Bhupinder Mcintyre on 21-11-1086Eupomdhof (Bld) [#/Vol]0.4 10*3/uLNormal0.0-0.8[facility] HospitalComment on above:Performed By: #### CBC, BMP ####[address] [place] [address] USAMonocytes/100 leukocytes in Blood by Automated countOrdered By: Bhupinder Mcintyre on 09-24-2024 Monocytes/100 WBC (Bld)8.7 %Normal.[facility] Surgical HospitalComment on above:Performed By: #### CBC, BMP ####[address] USANeutrophils [#/volume] in Blood by Automated count Ordered By: Bhupinder Mcnityre on 69-20-8716Ivbbgwgbcoz (Bld) [#/Vol]2.4 10*3/uLNormal 1.8-7.7FCommunity Regional Medical CenterComment on above:Performed By: #### CBC, BMP ####[address] [place] Neutrophils/100 leukocytes in Blood by Automated countOrdered By: Bhupinder Mcintyre on 83-59-7626Tqqsqtnysci/100 WBC (Bld)53.6 %Normal.[facility] HospitalComment on above:Performed By: #### CBC, BMP ####[id number] USANo Panel InformationOrdered By: Bhupinder Mcintyre on 00-62-9891Ckqjxqanh GFR (CKD-EPI)> 60.0 mL/MinOhio Valley Surgical HospitalPharmacy Creatinine Clearance (ChemN/[facility]> 60.0 mL/MinOhio Valley Surgical HospitalN/[facility] DaytonNucleated erythrocytes [Presence] in Blood by Automated countOrdered By: Bhupinder Mcintyre on 20-79-4992Onirfiszt RBC Auto Ql (Bld)0.2 /100{WBC} 0-0.5FCommunity Regional Medical CenterPlatelet mean volume [Entitic volume] in Blood by Automated countOrdered By: Bhupinder Mcintyre on 64-48-7679Vtidkjyc mean volume (Bld) [Entitic vol]8.2 fLNormal6.6-10.1FCommunity Regional Medical CenterComment on above:Performed By: #### CBC, BMP ####[address] [address] USAPlatelets [#/volume] in Blood by Automated countOrdered By: Bhupinder Mcintyre on 48-86-0605Vyafccbup (Bld) [#/Vol]188 10*3/uLNormal 150-450Ohio Valley Surgical HospitalComment on above:Performed By: #### CBC, BMP ####[address] [address] [place] Potassium [Moles/volume] in Serum or PlasmaOrdered By: Bhupinder Mcintyre on 09-24-2024 Potassium [Moles/Vol]4.3 mmol/LNormal3.5-5.1FCommunity Regional Medical Center Comment on above:Performed By: #### CBC, BMP ####[address] [address] USASerum or plasma anion gap determinationOrdered By: Bhupinder Mcintyre on 43-65-2029Lnhbb gap [Moles/Vol]9.8 mmol/L Normal6.0-15.0[facility] Surgical HospitalComment on above:Performed By: #### CBC, BMP ####[address] [address] USASodium [Moles/volume] in Serum or PlasmaOrdered By: Bhupinder Mcintyre on 13-35-9148Lbrvji [Moles/Vol]138 mmol/VNwnlvu756-614FsfgoscjoOhio Valley Surgical HospitalComment on above:Performed By: #### CBC, BMP ####[address] [address] USAUrea nitrogen [Mass/volume] in Serum or PlasmaOrdered By: Bhupinder Mcintyre on 66-37-4410Rxbn nitrogen [Mass/Vol]19 mg/dLNormal7-25Ohio [facility] Surgical HospitalComment on above:Performed By: #### CBC, BMP ####[address] [address] USAUrine Cultureon 90-09-9337Olovuwxk identified Cx Nom (U)NormalThe Unc Health Physician GroupComment on above:Performed By: #### CUU ####[address] [address] USAUrine cultureOrdered By: Opal Ga on 15-12-1004Edgvrfrv identified Cx Nom (U)Achromobacter xylosoxidansOhioHealth Grant Medical CenterUrine Cultureon 08-27-2024 Bacteria identified Cx Nom (U)NormalThe Unc Health Physician GroupComment on above:Performed By: #### CUU ####[address] [address] USAUrine cultureOrdered By: Opal Ga on 08-27-2024 Bacteria identified Cx Nom (U)Citrobacter freundii complexAbHolzer Medical Center – JacksonBacteria identified Cx Nom (U)Pseudomonas aeruginosa AbnormalOhio Valley Surgical HospitalCreatinineon 25-83-9453HVX/1.73 sq M.predicted MDRD (S/P/Bld) [Vol rate/Area]mL/min/{1.73_m2}NormalThe Unc Health Physician GroupComment on above:Result Comment: PERFORMED BY:[address] [place], [place] [phone] MEDICAL DIRECTORJAJA CATES M.D.Performed By: #### DESTINY ANTONIOAT ####[address] [address] USACreatinine [Mass/volume] in Serum or PlasmaOrdered By: Sandip Aguirre on 07-23-2024 Creatinine [Mass/Vol]1.06 mg/dLNormal0.70-1.30[facility] Comment on above:Performed By: #### DESTINY ANTONIOAT ####[address] [address] USAErythrocyte Sedimentation Rateon 70-19-2089MRQ (Bld) [Velocity]63 mm/hHigh0-19The [facility] Comment on above:Result Comment: PERFORMED BY:[address] [place] [place], [place] [phone] MEDICAL DIRECTORJAJA VILLAGOMEZCINDY MariePerformed By: #### ESR ####[address] [address] USAErythrocyte sedimentation rate by Photometric methodOrdered By: Sandip Aguirre on 85-77-1779ADS Photometric method (Bld) [Velocity]63 mm/hrHigh0Ohio [facility] HospitalNo Panel InformationOrdered By: Sandip Aguirre on 92-76-5565Mqmnfoirg GFR (CKD-EPI)> 60.0 mL/MinOhio Valley Surgical HospitalPharmacy Creatinine Clearance (ChemN/[facility]> 60.0 mL/MinOhio Valley Surgical HospitalN/[facility] DaytonVancomycin [Mass/volume] in Serum or Plasma --troughOrdered By: Sandip Aguirre on 02-22-4993Tqeoyysfox trough [Mass/Vol]18.2 ug/mL10.0-20.0[facility] HospitalComment on above:Last dose: -Vancomycin,Troughon 07-23-2024 Vancomycin,Vkadaj40.2 ug/sRKqusmw36.0-20.0The Unc Health Physician GroupComment on above:Result Comment: Last dose: -PERFORMED BY:[address] [place], [place] [phone] MEDICAL DIRECTORJAJA VILLAGOMEZCINDY MariePerformed By: #### TALHA ANTONIO ####[address] [address] USABasophils Auto (Bld) [#/Vol]Ordered By: Mario Jordan on 17-24-4950Inhrjejmx (Bld) [#/Vol]Automated basophil count0.0-0.2FCommunity Regional Medical CenterBasophils [#/volume] in Blood by Automated countOrdered By: Mario Jordan on 86-95-8267Zqqqxzxdc (Bld) [#/Vol]0.1 10*3/uLNormal0.0-0.2FCommunity Regional Medical CenterComment on above:Result Comment: PERFORMED BY:[address] [place], [place] [phone] MEDICAL DIRECTORJAJA WHITE M.D.Performed By: #### CBC ####[address] [address] USABasophils/100 WBC Auto (Bld)Ordered By: Mario Jordan on 65-73-8755Zsvrrxfbo/100 WBC (Bld)Automated basophil %.Ohio [facility] Surgical HospitalBasophils/100 leukocytes in Blood by Automated count Ordered By: Mario Jordan on 92-07-2991Tfaekvymn/100 WBC (Bld)0.9 %Normal. [facility] HospitalComment on above:Performed By: #### CBC ####[address] [facility] Complete Blood Count Auto Diffon 51-36-7324Yklc Corpuscular HGB Conc32.8 g/dL Hqbboz15.5-35.6The Unc Health Physician GroupComment on above:Performed By: #### CBC ####[address] [address] [place] NRBC%0.0 /100{WBC}Normal0-0.5The Unc Health Physician GroupComment on above: Performed By: #### CBC ####[address] USAEosinophils Auto (Bld) [#/Vol]Ordered By: Mario Jordan on 35-79-0277Poasjerznnt (Bld) [#/Vol]Automated eosinophil count0.0-0.45 [facility] Surgical HospitalEosinophils [#/volume] in Blood by Automated countOrdered By: Mario Jordan on 30-46-7856Pdbtnxrdxst (Bld) [#/Vol]0.3 10*3/uL Normal0.0-0.45Ohio [facility] Surgical HospitalComment on above:Performed By: #### CBC ####[address] USAEosinophils/100 WBC Auto (Bld)Ordered By: Mario Jordan on 07-17-2024 Eosinophils/100 WBC (Bld)Automated eosinophil %.Ohio [facility] Surgical HospitalEosinophils/100 leukocytes in Blood by Automated countOrdered By: Mario Jordan on 56-09-4196Mlnuwaaobpi/100 WBC (Bld)4.8 %Normal.[facility] HospitalComment on above:Performed By: #### CBC ####[place] [address] USAErythrocyte distribution width Auto (RBC) [Ratio]Ordered By: Mario Jordan on 79-91-7137Cztdvxmlpjm distribution width (RBC) [Ratio]Erythrocyte distribution width [Ratio] by Automated count High12.0-14.8[facility] Surgical HospitalErythrocyte distribution width [Ratio] by Automated countOrdered By: Mario Jordan on 30-46-5226Jcabigevgrv distribution width (RBC) [Ratio]18.5 %High12.0-14.8[facility] HospitalComment on above:Performed By: #### CBC ####[address] USAErythrocytes [#/volume] in Blood by Automated countOrdered By: Mairo Jordan on 75-83-2876IPK (Bld) [#/Vol]2.88 10*6/uLLow3.90-5.60[facility] HospitalComment on above:Performed By: #### CBC ####[place] [address] USAHematocrit Auto (Bld) [Volume fraction]Ordered By: Mario Jordan on 41-71-3587Szvzqozalj (Bld) [Volume fraction]Hematocrit [Volume Fraction] of Blood by Automated gemfqYyf19.8-50.0[facility] Surgical HospitalHematocrit [Volume Fraction] of Blood by Automated countOrdered By: Mario Jordan on 72-48-4147Hwucducohw (Bld) [Volume fraction]25.8 %Low38.8-50.0[facility] HospitalComment on above:Performed By: #### CBC ####[address] [place] [address] USAHemoglobin [Mass/volume] in BloodOrdered By: Mario Jordan on 83-14-3943Mapihlycty (Bld) [Mass/Vol]Hemoglobin [Mass/volume] in SvuydHgu90.0-17.0[facility] Surgical HospitalHemoglobin (Bld) [Mass/Vol]8.5 g/dLLow13.0-17.0[facility] HospitalComment on above:Performed By: #### CBC ####[address] USALeukocytes [#/volume] corrected for nucleated erythrocytes in Blood by Automated counOrdered By: Mario Jordan on 82-59-0315AID corrected for nucl RBC Auto (Bld) [#/Vol]Leukocytes [#/volume] corrected for nucleated erythrocytes in Blood by Automated coun4.1-10.5FCommunity Regional Medical CenterWBC corrected for nucl RBC Auto (Bld) [#/Vol]7.1 10*3/uL4.1-10.5 [facility] HospitalLeukocytes [#/volume] in Blood by Automated countOrdered By: Mario Jordan on 86-48-1949AVA (Bld) [#/Vol]7.1 10*3/uLNormal 4.1-10.5FCommunity Regional Medical CenterComment on above:Performed By: #### CBC ####[address] [place] Lymphocytes Auto (Bld) [#/Vol]Ordered By: Mario Jordan on 76-30-6523Tuoggyupssw (Bld) [#/Vol]Lymphocytes [#/volume] in Blood by Automated count1.00-4.8[facility] Surgical HospitalLymphocytes [#/volume] in Blood by Automated count Ordered By: Mario Jordan on 90-54-3296Alabewamunp (Bld) [#/Vol]1.5 10*3/uLNormal 1.00-4.8[facility] HospitalComment on above:Performed By: #### CBC ####[address] [address] [facility] Lymphocytes/100 WBC Auto (Bld)Ordered By: Mario Jordan on 07-17-2024 Lymphocytes/100 WBC (Bld)Lymphocytes/100 leukocytes in Blood by Automated count. [facility] Surgical HospitalLymphocytes/100 leukocytes in Blood by Automated countOrdered By: Mario Jordan on 37-79-3501Qwddjvvyued/100 WBC (Bld) 20.4 %Normal.[facility] HospitalComment on above:Performed By: #### CBC ####[facility] [facility] Auto (RBC) [Entitic mass]Ordered By: Mario Jordan on 98-01-8159XKH (RBC) [Entitic mass]MCH [Entitic mass] by Automated count27.5-35.2FMercy Health Fairfield Hospital [Entitic mass] by Automated countOrdered By: Mario Jordan on 26-32-4065FDV (RBC) [Entitic mass]29.4 ocBigrsc49.5-35.2FCommunity Regional Medical CenterComment on above:Performed By: #### CBC ####[address] [facility] Auto (RBC) [Mass/Vol] Ordered By: Mario Jordan on 20-83-4744CMDT (RBC) [Mass/Vol]MCHC [Mass/volume] by Automated count32.5-35.6FSalem City HospitalHC (RBC) [Mass/Vol] 32.8 g/dL32.5-35.6FFlower Hospital Auto (RBC) [Entitic vol] Ordered By: Mario Jordan on 51-79-3436HRF (RBC) [Entitic vol]MCV [Entitic volume] by Automated count83.5-101[facility] [Entitic volume] by Automated countOrdered By: Mario Jordan on 04-12-1454OGD (RBC) [Entitic vol] 89.8 jGLsdcuq93.5-101[facility] HospitalComment on above:Performed By: #### CBC ####[address] USAMonocytes Auto (Bld) [#/Vol]Ordered By: Mario Jordan on 07-17-2024 Monocytes (Bld) [#/Vol]Automated blood monocyte count0.0-0.8[facility] HospitalMonocytes [#/volume] in Blood by Automated countOrdered By: Mario Jordan on 73-59-3375Doyznsuya (Bld) [#/Vol]0.6 10*3/uLNormal0.0-0.8[facility] HospitalComment on above:Performed By: #### CBC ####[place] [address] USAMonocytes/100 WBC Auto (Bld)Ordered By: Mario Jordan on 04-68-7008Vlzmjzdhk/100 WBC (Bld)Automated monocyte %.[facility] Surgical HospitalMonocytes/100 leukocytes in Blood by Automated countOrdered By: Mario Jordan on 20-13-8481Prhtiebwt/100 WBC (Bld)8.0 %Normal.[facility] HospitalComment on above:Performed By: #### CBC ####[address] Neutrophils Auto (Bld) [#/Vol]Ordered By: Mario Jordan on 95-28-2704Cadybogoipd (Bld) [#/Vol]Neutrophils [#/volume] in Blood by Automated count1.8-7.7FCommunity Regional Medical CenterNeutrophils [#/volume] in Blood by Automated countOrdered By: Mario Jordan on 33-15-1909Psmhermgiqx (Bld) [#/Vol]4.7 10*3/uLNormal1.8-7.7 [facility] HospitalComment on above:Performed By: #### CBC ####[address] Neutrophils/100 WBC Auto (Bld)Ordered By: Mario Jordan on 07-17-2024 Neutrophils/100 WBC (Bld)Automated neutrophil %.[facility] Surgical HospitalNeutrophils/100 leukocytes in Blood by Automated countOrdered By: Mario Jordan on 83-79-5620Jcilkudziwt/100 WBC (Bld)65.9 %Normal.[facility] HospitalComment on above:Performed By: #### CBC ####[address] USANucleated erythrocytes [Presence] in Blood by Automated countOrdered By: Mario Jordan on 07-17-2024 Nucleated RBC Auto Ql (Bld)Nucleated erythrocytes [Presence] in Blood by Automated count0-0.5FCommunity Regional Medical CenterNucleated RBC Auto Ql (Bld) 0.0 /100{WBC}0-0.5FCommunity Regional Medical CenterPlatelet mean volume Auto (Bld) [Entitic vol]Ordered By: Mario Jordan on 17-06-7083Paqbeiml mean volume (Bld) [Entitic vol]Platelet mean volume [Entitic volume] in Blood by Automated count6.6-10.1FCommunity Regional Medical CenterPlatelet mean volume [Entitic volume] in Blood by Automated countOrdered By: Mario Jordan on 95-13-3900Adjfnchf mean volume (Bld) [Entitic vol]8.2 fLNormal6.6-10.1FCommunity Regional Medical CenterComment on above:Performed By: #### CBC ####[address] USAPlatelets Auto (Bld) [#/Vol]Ordered By: Mario Jordan on 34-43-7471Pbiblzcvs (Bld) [#/Vol]Platelets [#/volume] in Blood by Automated ptiul425-168DhunbwibrOhio Valley Surgical HospitalPlatelets [#/volume] in Blood by Automated countOrdered By: Mario Jordan on 07-17-2024 Platelets (Bld) [#/Vol]164 10*3/dLEtmwqd035-658Iknmufreo[address] [place] [address] Comment on above:Performed By: #### CBC ####[address] USARBC Auto (Bld) [#/Vol]Ordered By: Mario Jordan on 48-16-2906SIQ (Bld) [#/Vol]Erythrocytes [#/volume] in Blood by Automated countLow3.90-5.60[facility] HospitalWBC Auto (Bld) [#/Vol]Ordered By: Mario Jordan on 55-29-8830KVQ (Bld) [#/Vol]Leukocytes [#/volume] in Blood by Automated count4.1-10.5FCommunity Regional Medical CenterAlanine aminotransferase [Enzymatic activity/volume] in Serum or PlasmaOrdered By: Mario Jordan on 65-45-1051GIR [Catalytic activity/Vol]Alanine aminotransferase [Enzymatic activity/volume] in Serum or Plasma7-52[facility] Surgical HospitalALT [Catalytic activity/Vol]14 U/LNormal7-52[facility] HospitalComment on above:Performed By: #### CBC, CMP ####[facility] [address] [place] [address] USAAlbumin [Mass/volume] in Serum or Plasma by Bromocresol green (BCG) dye binding methoOrdered By: Mario Jordan on 07-16-2024 Albumin BCG dye [Mass/Vol]Albumin [Mass/volume] in Serum or Plasma by Bromocresol green (BCG) dye binding methoLow3.5-5.7FCommunity Regional Medical CenterAlbumin BCG dye [Mass/Vol]2.8 g/dLLow3.5-5.7FCommunity Regional Medical CenterAlkaline phosphatase [Enzymatic activity/volume] in Serum or PlasmaOrdered By: Mario Jordan on 56-35-7624PQC [Catalytic activity/Vol]Alkaline phosphatase [Enzymatic activity/volume] in Serum or Pafoph21-826SzufdxcopOhio Valley Surgical HospitalALP [Catalytic activity/Vol]100 U/TVaunpk79-307DeewzzbzkOhio Valley Surgical HospitalComment on above:Performed By: #### CBC, CMP ####[facility] [address] [place] [address] USAAspartate aminotransferase [Enzymatic activity/volume] in Serum or PlasmaOrdered By: Mario Jordan on 97-15-6585LIO [Catalytic activity/Vol]Aspartate aminotransferase [Enzymatic activity/volume] in Serum or Qlyjwr65-14VhwzwirofOhio Valley Surgical HospitalAST [Catalytic activity/Vol]22 U/GRnltuc53-44KouasquzeOhio Valley Surgical Hospital Comment on above:Performed By: #### CBC, CMP ####[facility] [address] [place] [address] USABilirubin.total [Mass/volume] in Serum or PlasmaOrdered By: Mario Jordan on 05-00-6103Atngzbhfv [Mass/Vol] Bilirubin.total [Mass/volume] in Serum or Plasma0.3-1.0[facility] Surgical HospitalBilirubin [Mass/Vol]0.4 mg/dLNormal0.3-1.0[facility] HospitalComment on above:Performed By: #### CBC, CMP ####[facility] [address] [place] [address] USACalcium [Mass/volume] in Serum or PlasmaOrdered By: Mario Jordan on 82-41-2068Gowtaew [Mass/Vol] Calcium [Mass/volume] in Serum or PlasmaLow8.6-10.3FCommunity Regional Medical CenterCalcium [Mass/Vol]8.2 mg/dLLow8.6-10.3FCommunity Regional Medical Center Comment on above:Performed By: #### CBC, CMP ####[facility] [address] [place] [address] USACarbon dioxide, total [Moles/volume] in Serum or PlasmaOrdered By: Mario Jordan on 43-79-8692XL4 [Moles/Vol]Carbon dioxide, total [Moles/volume] in Serum or Iqfnex38.0-31.0[facility] Surgical HospitalCO2 [Moles/Vol]26.5 mmol/QNumohk14.0-31.0[facility] HospitalComment on above:Performed By: #### CBC, CMP ####[facility] [address] [place] [address] USAChloride [Moles/volume] in Serum or PlasmaOrdered By: Mario Jordan on 85-27-0041Svdzblgs [Moles/Vol]Chloride [Moles/volume] in Serum or Kvhnpj71-146BmfndklouOhio Valley Surgical HospitalChloride [Moles/Vol]104 mmol/DTfytsm55-757MoyxkgakuOhio Valley Surgical HospitalComment on above:Performed By: #### CBC, CMP ####[address] [address] USAComplete Blood Count Auto Diffon 38-69-7129Guglflkkq (Bld) [#/Vol]0.0 10*3/uLNormal0.0-0.2The Unc Health Physician GroupComment on above:Result Comment: PERFORMED BY:[address], [place] [phone] MEDICAL DIRECTORJAJA CATES M.D.Performed By: #### CBC, CMP ####[id number] [place] Basophils/100 WBC (Bld)0.6 %Normal.The Unc Health Physician GroupComment on above:Performed By: #### CBC, CMP ####[address] [address] USAEosinophils (Bld) [#/Vol]0.3 10*3/uLNormal0.0-0.45 The Unc Health Physician GroupComment on above:Performed By: #### CBC, CMP ####[address] [place] Eosinophils/100 WBC (Bld)4.0 %Normal.The Unc Health Physician GroupComment on above:Performed By: #### CBC, CMP ####[address] [address] USAErythrocyte distribution width (RBC) [Ratio]18.7 % High12.0-14.8The Unc Health Physician GroupComment on above:Performed By: #### CBC, CMP ####[address] [address] USAHematocrit (Bld) [Volume fraction]26.3 %Low38.8-50.0The Unc Health Physician GroupComment on above:Performed By: #### CBC, CMP ####[address] USAHemoglobin (Bld) [Mass/Vol]8.6 g/dLLow 13.0-17.0The Unc Health Physician GroupComment on above:Performed By: #### CBC, CMP ####[place] [address] [place] Lymphocytes (Bld) [#/Vol]1.3 10*3/uLNormal1.00-4.8The [facility] Comment on above:Performed By: #### CBC, CMP ####[place] [address] USALymphocytes/100 WBC (Bld)16.9 %Normal. The Unc Health Physician GroupComment on above:Performed By: #### CBC, CMP ####[address] (RBC) [Entitic mass]29.9 idNvjlsp22.5-35.2The Unc Health Physician GroupComment on above:Performed By: #### CBC, CMP ####[address] (RBC) [Entitic vol]91.3 dOJulpuw77.5-101 The Unc Health Physician GroupComment on above:Performed By: #### CBC, CMP ####[place] [address] USAMean Corpuscular HGB Conc32.7 g/uKXcnexy87.5-35.6The Unc Health Physician GroupComment on above:Performed By: #### CBC, CMP ####[place] [address] USAMonocytes (Bld) [#/Vol]0.5 10*3/uLNormal 0.0-0.8The Unc Health Physician GroupComment on above:Performed By: #### CBC, CMP ####[place] [address] [place] Monocytes/100 WBC (Bld)6.5 %Normal.The Unc Health Physician GroupComment on above:Performed By: #### CBC, CMP ####[place] [address] USANeutrophils (Bld) [#/Vol]5.7 10*3/uLNormal1.8-7.7The Unc Health Physician GroupComment on above:Performed By: #### CBC, CMP ####[place] [address] [place] Neutrophils/100 WBC (Bld)72.0 %Normal.The Un[facility] Health Physician GroupComment on above:Performed By: #### CBC, CMP ####[place] [address] USANRBC%0.0 /100{WBC}Normal0-0.5The Unc Health Physician GroupComment on above:Performed By: #### CBC, CMP ####[place] [address] USAPlatelet mean volume (Bld) [Entitic vol]8.3 fLNormal6.6-10.1The Unc Health Physician GroupComment on above: Performed By: #### CBC, CMP ####[place] [address] USAPlatelets (Bld) [#/Vol]151 10*3/gDYckfrl474-936Reo Unc Health Physician GroupComment on above:Performed By: #### CBC, CMP ####[place] [address] USARBC (Bld) [#/Vol]2.88 10*6/uLLow3.90-5.60The Un[facility] Health Physician GroupComment on above:Performed By: #### CBC, CMP ####[place] [address] USAWBC (Bld) [#/Vol]7.9 10*3/uLNormal4.1-10.5The Unc Health Physician GroupComment on above:Performed By: #### CBC, CMP ####[address] Comprehensive Metabolic Panelon 39-60-9021Uiyoeit [Mass/Vol]2.8 g/dLLow3.5-5.7 The Unc Health Physician GroupComment on above:Performed By: #### CBC, CMP ####[address] [place] [address] [place] Creatinine Clr Calc Mlbwmhdi61.36NormHCA Florida Lake [facility] Hospital Physician GroupComment on above:Result Comment: PERFORMED BY:[address] [place], [place] [phone] MEDICAL RANCHO WHITE M.D.Performed By: #### CBC, CMP ####[address] [address] USAGFR/1.73 sq M.predicted MDRD (S/P/Bld) [Vol rate/Area]mL/min/{1.73_m2}NormalThe Unc Health Physician GroupComment on above: Performed By: #### CBC, CMP ####[address] [place] [address] USACreatinine [Mass/volume] in Serum or PlasmaOrdered By: Mario Jordan on 91-44-3758Qfpekbmonq [Mass/Vol]Creatinine [Mass/volume] in Serum or Plasma0.70-1.30[facility] HospitalCreatinine [Mass/Vol] 1.15 mg/dLNormks0.70-1.30[facility] HospitalComment on above: Performed By: #### CBC, CMP ####[address] [address] USAGlobulin Calc (S) [Mass/Vol]Ordered By: Mario Jordan on 26-61-4959Jlzamkqu (S) [Mass/Vol]Serum globulin measurement by calculation (mass/volume)[facility] HospitalGlucose [Mass/volume] in Serum or PlasmaOrdered By: Mario Jordan on 18-81-8633Kiookvp [Mass/Vol]Glucose [Mass/volume] in Serum or Hfitnj88-807HyjzoohgyOhio Valley Surgical HospitalGlucose [Mass/Vol]86 mg/eCNvjlri90-409KsndvolpnOhio Valley Surgical HospitalComment on above: ADA recommended reference rangeRandom [...] recommended reference rangePerformed By: #### CBC, CMP ####[facility] [place] [address] USANo Panel InformationOrdered By: Mario Jordan on 32-20-3461Syjvtwqdw GFR (CKD-EPI)> 60.0 mL/MinOhio Valley Surgical HospitalPharmacy Creatinine Clearance (Chem51.36[facility]> 60.0 mL/MinOhio Valley Surgical Hospital51.36[facility] HospitalPotassium [Moles/volume] in Serum or PlasmaOrdered By: Mario Jordan on 24-97-9798Qbayberrb [Moles/Vol]Potassium [Moles/volume] in Serum or Plasma3.5-5.1FCommunity Regional Medical CenterPotassium [Moles/Vol]3.6 mmol/LNormal3.5-5.1FCommunity Regional Medical CenterComment on above:Performed By: #### CBC, CMP ####[address] [address] USAProtein [Mass/volume] in Serum or PlasmaOrdered By: Mario Jordan on 29-91-0639Mpmnnef [Mass/Vol] Protein [Mass/volume] in Serum or PlasmaLow6.4-8.9[facility] HospitalProtein [Mass/Vol]5.5 g/dLLow6.4-8.9[facility] Comment on above:Performed By: #### CBC, CMP ####[address] [place] [address] USASerum globulin measurement by calculation (mass/volume)Ordered By: Mario Jordan on 72-42-5002Qzsenybm (S) [Mass/Vol]2.7 g/dLNoMercy Health Defiance HospitalComment on above: Performed By: #### CBC, CMP ####[address] [place] [address] USASerum or plasma albumin/globulin mass ratioOrdered By: Mario Jordan on 56-12-7312Vdkkbtj/Globulin [Mass ratio]Serum or plasma albumin/globulin mass ratioOhio Valley Surgical HospitalAlbumin/Globulin [Mass ratio]1.0 {ratio}NormalOhio Valley Surgical HospitalComment on above: Performed By: #### CBC, CMP ####[address] [address] USASerum or plasma anion gap determinationOrdered By: Mario Jordan on 17-39-8527Wnqds gap [Moles/Vol]Serum or plasma anion gap determination6.0-15.0[facility] HospitalAnion gap [Moles/Vol]10.1 mmol/LNormal6.0-15.0[facility] HospitalComment on above:Performed By: #### CBC, CMP ####[address] USASodium [Moles/volume] in Serum or PlasmaOrdered By: Mario Jordan on 57-45-7186Vmvwyw [Moles/Vol]Sodium [Moles/volume] in Serum or Mmunkc691-710 [facility] Hospitalodium [Moles/Vol]137 mmol/TPnmzvq155-999 [facility] HospitalComment on above:Performed By: #### CBC, CMP ####[address] [address] USAUrea nitrogen [Mass/volume] in Serum or PlasmaOrdered By: Mario Jordan on 07-16-2024 Urea nitrogen [Mass/Vol]Urea nitrogen [Mass/volume] in Serum or PlasmaHigh7-25 [facility] HospitalUrea nitrogen [Mass/Vol]26 mg/dLHigh7-25 [facility] HospitalComment on above:Performed By: #### CBC, CMP ####[address] [address] USAX-ray reportOrdered By: Shaquille Mahoney on 12-85-5139Hfulg reportOhio Valley Surgical Hospital Work Phone: xr chest 1V portableon 63-35-5613SA chest 1V portable NormalThe Unc Health Physician GroupAerobic Cultureon 73-06-7391Ekyhuby Culture NormalThe Unc Health Physician GroupComment on above:Performed By: #### AERC ####[address] [address] USAAerobic cultureOrdered By: Bryce Villeda on 48-69-8538Sodtkqun identified Aer cx Nom (Unsp spec)Aerobic cultureOhio Valley Surgical HospitalBacteria identified Aer cx Nom (Unsp spec)No Growth 2 DaysOhio Valley Surgical HospitalAnaerobic cultureOrdered By: Bryce Villeda on 30-07-5395Oqailhdx identified Anaer cx Nom (Unsp spec)No Anaerobes Isolated 3 DaysOhio Valley Surgical HospitalComplete Blood Count Auto Diffon 60-59-5323Rkhaixmhn (Bld) [#/Vol]0.1 10*3/uLNormal0.0-0.2The Unc Health Physician GroupComment on above:Result Comment: PERFORMED BY:[address] [place], [place] [phone] MEDICAL DIRECTORJAJA WHITE M.D.Performed By: #### CMP, CBC ####[address] [address] USABasophils/100 WBC (Bld)0.5 %Normal.The Unc Health Physician GroupComment on above:Performed By: #### CMP, CBC ####[address] [address] [place] Eosinophils (Bld) [#/Vol]0.4 10*3/uLNormal0.0-0.45The [facility] Comment on above:Performed By: #### CMP, CBC ####[address] [address] USAEosinophils/100 WBC (Bld)3.1 %Normal. The Unc Health Physician GroupComment on above:Performed By: #### CMP, CBC ####[address] [address] [place] Erythrocyte distribution width (RBC) [Ratio]18.7 %High12.0-14.8The Unc Health Physician GroupComment on above:Performed By: #### CMP, CBC ####[place] [address] USAHematocrit (Bld) [Volume fraction]24.7 %Low38.8-50.0The Unc Health Physician GroupComment on above:Performed By: #### CMP, CBC ####[place] [address] USAHemoglobin (Bld) [Mass/Vol]8.0 g/dLLow13.0-17.0The Unc Health Physician GroupComment on above:Performed By: #### CMP, CBC ####[place] [address] [place] Lymphocytes (Bld) [#/Vol]1.2 10*3/uLNormal1.00-4.8The [facility] Comment on above:Performed By: #### CMP, CBC ####[place] [address] USALymphocytes/100 WBC (Bld)10.9 %Normal. The Unc Health Physician GroupComment on above:Performed By: #### CMP, CBC ####[address] USAMCH (RBC) [Entitic mass]29.4 htFedjvv23.5-35.2The Unc Health Physician GroupComment on above:Performed By: #### CMP, CBC ####[place] [address] USAMCV (RBC) [Entitic vol]90.4 hPUhqytx58.5-101 The Unc Health Physician GroupComment on above:Performed By: #### CMP, CBC ####[address] USAMean Corpuscular HGB Conc32.5 g/fXJfwaxh32.5-35.6The Unc Health Physician GroupComment on above:Performed By: #### CMP, CBC ####[place] [address] USAMonocytes (Bld) [#/Vol]0.7 10*3/uLNormal 0.0-0.8The Unc Health Physician GroupComment on above:Performed By: #### CMP, CBC ####[place] [address] [place] Monocytes/100 WBC (Bld)6.0 %Normal.The Unc Health Physician GroupComment on above:Performed By: #### CMP, CBC ####[place] [address] USANeutrophils (Bld) [#/Vol]8.9 10*3/uLHigh1.8-7.7The Unc Health Physician GroupComment on above:Performed By: #### CMP, CBC ####[place] [address] [place] Neutrophils/100 WBC (Bld)79.5 %Normal.The Unc Health Physician GroupComment on above:Performed By: #### CMP, CBC ####[place] [address] USANRBC%0.0 /100{WBC}Normal0-0.5The Unc Health Physician GroupComment on above:Performed By: #### CMP, CBC ####[place] [address] USAPlatelet mean volume (Bld) [Entitic vol]8.0 fLNormal6.6-10.1The Unc Health Physician GroupComment on above: Performed By: #### CMP, CBC ####[place] [address] USAPlatelets (Bld) [#/Vol]153 10*3/rCRksbnb923-063Wos Unc Health Physician GroupComment on above:Performed By: #### CMP, CBC ####[place] [address] USARBC (Bld) [#/Vol]2.73 10*6/uLLow3.90-5.60The Unc Health Physician GroupComment on above:Performed By: #### CMP, CBC ####[address] [address] USAWBC (Bld) [#/Vol]11.2 10*3/uLHigh4.1-10.5The Unc Health Physician GroupComment on above:Performed By: #### CMP, CBC ####[address] [address] [facility] Comprehensive Metabolic Panelon 24-19-0457Bhddaaq [Mass/Vol]2.7 g/dLLow3.5-5.7 The Unc Health Physician GroupComment on above:Performed By: #### CMP, CBC ####[address] [address] [facility] Albumin/Globulin [Mass ratio]1.0 {ratio}NormalThe Unc Health Physician Group Comment on above:Performed By: #### CMP, CBC ####[address] [address] USAALP [Catalytic activity/Vol]91 U/L Agyqcy34-354Mjk Unc Health Physician GroupComment on above:Performed By: #### CMP, CBC ####[address] [address] USAALT [Catalytic activity/Vol]8 U/LNormal7-52The [facility] Comment on above:Performed By: #### CMP, CBC ####[address] [address] USAAnion gap [Moles/Vol]9.7 mmol/LNormal 6.0-15.0The Unc Health Physician GroupComment on above:Performed By: #### CMP, CBC ####[address] [address] USAAST [Catalytic activity/Vol]17 U/VOhzcvx36-64Zfp Un[facility] Health Physician GroupComment on above:Performed By: #### CMP, CBC ####[address] [address] USABilirubin [Mass/Vol]0.4 mg/dLNormal0.3-1.0The Unc Health Physician GroupComment on above:Performed By: #### CMP, CBC ####[address] [place] [address] USACalcium [Mass/Vol]8.2 mg/dLLow8.6-10.3The Unc Health Physician GroupComment on above: Performed By: #### CMP, CBC ####[address] USAChloride [Moles/Vol]103 mmol/JTybkzp55-056Eky [facility] Physician [facility] HospitalComment on above:Performed By: #### CMP, CBC ####[place] [address] USACO2 [Moles/Vol]25.8 mmol/MHogxip89.0-31.0The Unc Health Physician GroupComment on above:Performed By: #### CMP, CBC ####[place] [address] USACreatinine [Mass/Vol]1.44 mg/dLHigh0.70-1.30The Un[facility] Health Physician GroupComment on above:Performed By: #### CMP, CBC ####[place] [address] [place] Creatinine Clr Calc Rkmmdayb14.88NoCritical access hospital Physician GroupComment on above:Result Comment: PERFORMED BY:[address] [place], [place] [phone] MEDICAL DIRECTORJAJA WHITE M.D.Performed By: #### CMP, CBC ####[address] [address] USAEstimated GFR48.213 mL/MinNoCritical access hospital Physician [facility] HospitalComment on above:Performed By: #### CMP, CBC ####[address] [address] USAGlobulin (S) [Mass/Vol]2.7 g/dLAdventHealth Ocala Physician [facility] HospitalComment on above:Performed By: #### CMP, CBC ####[address] [address] USAGlucose [Mass/Vol]108 mg/wJAyum69-008Oax [facility] Comment on above:Result Comment: Random Glucose Reference Range is dependent on time and content of last meal. Glucose of more than 200 mg/dL in a nonstressed, ambulatory subject supports the diagnosis of Diabetes Mellitus. ADA recommended reference rangePerformed By: #### CMP, CBC ####[address] [place] [address] USAPotassium [Moles/Vol]3.5 mmol/LNormal 3.5-5.1The Un[facility] Health Physician GroupComment on above:Performed By: #### CMP, CBC ####[address] [place] [address] [place] Protein [Mass/Vol]5.4 g/dLLow6.4-8.9The [facility] Physician [facility] HospitalComment on above:Performed By: #### CMP, CBC ####[address] [place] [address] USASodium [Moles/Vol]135 mmol/EVte020-313Xsd [facility] Physician [facility] HospitalComment on above:Performed By: #### CMP, CBC ####[phone] USAUrea nitrogen [Mass/Vol]32 mg/dLHigh7-25The [facility] Physician [facility] HospitalComment on above: Performed By: #### CMP, CBC ####[address] USAGram stain microscopyOrdered By: Bryce Villeda on 56-27-2988Fssgkzxexcz observation Gram stain Nom (Unsp spec)Gram stain microscopyOhio Valley Surgical HospitalMicroscopic observation Gram stain Nom (Unsp spec)[facility] HospitalVancomycin [Mass/volume] in Serum or Plasma --troughOrdered By: Mario Jordan on 71-70-0852Akfhglryvb trough [Mass/Vol]Serum or plasma trough vancomycin jxdhmVzhv62.0-20.0[facility] HospitalVancomycin trough [Mass/Vol]38.7 ug/yQOywy95.0-20.0[facility] HospitalComment on above:Last dose: -Vancomycin,Troughon 25-50-1404Tczzzwzhyv,Idyqnz28.7 ug/vYAjbg73.0-20.0The [facility] Comment on above:Result Comment: Last dose: -PERFORMED BY:[address] [place], [place] [phone] MEDICAL DIRECTORJAJA CATES M.D.Performed By: #### VANCT ####[address] [address] USACT lower leg RT wo conon 55-95-6079GG lower leg RT wo conNormalThe [facility] Physician [facility] Complete Blood Count Auto Diffon 62-20-1991Yzgugtuga (Bld) [#/Vol]0.0 10*3/uL Normal0.0-0.2The Unc Health Physician GroupComment on above:Result Comment: PERFORMED BY:[address] [place], [place] [phone] MEDICAL DIRECTORJAJA CATES M.D. Performed By: #### CBC, CMP ####[address] USABasophils/100 WBC (Bld)0.2 %Normal.The [facility] Health Physician GroupComment on above:Performed By: #### CBC, CMP ####[address] USAEosinophils (Bld) [#/Vol]0.2 10*3/uLNormal0.0-0.45The [facility] Health Physician GroupComment on above: Performed By: #### CBC, CMP ####[address] USAEosinophils/100 WBC (Bld)1.4 %Normal.The [facility] Health Physician GroupComment on above:Performed By: #### CBC, CMP ####[address] USAErythrocyte distribution width (RBC) [Ratio]18.4 %High12.0-14.8The [facility]ician [facility] Comment on above:Performed By: #### CBC, CMP ####[address] [address] USAHematocrit (Bld) [Volume fraction]24.0 %Low38.8-50.0The [facility] Health Physician GroupComment on above:Performed By: #### CBC, CMP ####[place] [address] USAHemoglobin (Bld) [Mass/Vol]7.8 g/dLLow13.0-17.0The [facility] Comment on above:Performed By: #### CBC, CMP ####[address] USALymphocytes (Bld) [#/Vol]1.2 10*3/uL Normal1.00-4.8The [facility] Health Physician GroupComment on above:Performed By: #### CBC, CMP ####[place] [address] USALymphocytes/100 WBC (Bld)7.4 %Normal.The [facility] Health Physician GroupComment on above:Performed By: #### CBC, CMP ####[address] USAMCH (RBC) [Entitic mass]29.8 qrNvfvns59.5-35.2The [facility] Health Physician GroupComment on above:Performed By: #### CBC, CMP ####[address] USAMCV (RBC) [Entitic vol]91.5 uPBgalas63.5-101The [facility] Health Physician GroupComment on above:Performed By: #### CBC, CMP ####[address] USAMean Corpuscular HGB Conc32.5 g/eSRaskgw33.5-35.6The [facility] Health Physician GroupComment on above:Performed By: #### CBC, CMP ####[address] [place] Monocytes (Bld) [#/Vol]1.0 10*3/uLHigh0.0-0.8The [facility] Comment on above:Performed By: #### CBC, CMP ####[address] [address] USAMonocytes/100 WBC (Bld)6.1 %Normal.The [facility] Health Physician GroupComment on above:Performed By: #### CBC, CMP ####[address] [address] [place] Neutrophils (Bld) [#/Vol]13.3 10*3/uLHigh1.8-7.7The [facility] Comment on above:Performed By: #### CBC, CMP ####[address] [address] USANeutrophils/100 WBC (Bld)84.9 %Normal. The [facility] Health Physician GroupComment on above:Performed By: #### CBC, CMP ####[address] [address] USANRBC% 0.1 /100{WBC}Normal0-0.5The [facility] Health Physician GroupComment on above:Performed By: #### CBC, CMP ####[address] [address] USAPlatelet mean volume (Bld) [Entitic vol]7.9 fLNormal6.6-10.1The [facility] Health Physician GroupComment on above:Performed By: #### CBC, CMP ####[address] [address] [place] Platelets (Bld) [#/Vol]147 10*3/jMXya083-355Zcj [facility] Physician GroupComment on above:Performed By: #### CBC, CMP ####[address] [address] USARBC (Bld) [#/Vol]2.63 10*6/uLLow3.90-5.60The [facility] Health Physician GroupComment on above:Performed By: #### CBC, CMP ####[address] [address] USAWBC (Bld) [#/Vol]15.7 10*3/uLHigh4.1-10.5The [facility] Health Physician GroupComment on above:Performed By: #### CBC, CMP ####[address] [address] USAComprehensive Metabolic Panelon 22-37-8178Uptehsy [Mass/Vol]2.7 g/dLLow3.5-5.7The [facility] Health Physician GroupComment on above: Performed By: #### CBC, CMP ####[place] [address] USAAlbumin/Globulin [Mass ratio]1.1 {ratio}NormalThe Unc Health Physician GroupComment on above:Performed By: #### CBC, CMP ####[place] [address] USAALP [Catalytic activity/Vol]79 U/NTwaeot73-045Afr [facility] Health Physician GroupComment on above:Performed By: #### CBC, CMP ####[place] [address] USAALT [Catalytic activity/Vol]4 U/LLow7-52The [facility] Health Physician GroupComment on above:Performed By: #### CBC, CMP ####[address] USAAnion gap [Moles/Vol]12.2 mmol/LNormal6.0-15.0The [facility] Health Physician GroupComment on above:Performed By: #### CBC, CMP ####[address] USAAST [Catalytic activity/Vol]11 U/JUxd21-93Gmq [facility] Physician GroupComment on above:Performed By: #### CBC, CMP ####[address] [place] Bilirubin [Mass/Vol]0.4 mg/dLNormal0.3-1.0The [facility] Health Physician GroupComment on above:Performed By: #### CBC, CMP ####[place] [address] USACalcium [Mass/Vol]8.2 mg/dLLow8.6-10.3The [facility] Health Physician GroupComment on above:Performed By: #### CBC, CMP ####[place] [address] [place] Chloride [Moles/Vol]101 mmol/ZOgrcyp01-224Mzh [facility] Physician GroupComment on above:Performed By: #### CBC, CMP ####[address] USACO2 [Moles/Vol]22.1 mmol/UWfqgiu01.0-31.0The [facility] Health Physician GroupComment on above:Performed By: #### CBC, CMP ####[address] [facility] Creatinine [Mass/Vol]1.63 mg/dLHigh0.70-1.30The [facility] Health Physician GroupComment on above:Performed By: #### CBC, CMP ####[place] [address] USACreatinine Clr Calc Gdrtkctv24.75NormHCA Florida Lake [facility] Hospital Physician GroupComment on above:Result Comment: PERFORMED BY:[address] [place], [place] [phone] MEDICAL DIRECTORJAJA CATES M.D.Performed By: #### CBC, CMP ####[address] Estimated GFR41.809 mL/MinNoCritical access hospital Physician [facility] HospitalComment on above: Performed By: #### CBC, CMP ####[address] USAGlobulin (S) [Mass/Vol]2.5 g/dLAdventHealth Ocala Physician [facility] HospitalComment on above:Performed By: #### CBC, CMP ####[place] [address] USAGlucose [Mass/Vol]81 mg/rZTcgsyd41-478Gtj [facility] Physician GroupComment on above:Result Comment: Random Glucose Reference Range is dependent on time and content of last meal. Glucose of more than 200 mg/dL in a nonstressed, ambulatory subject supports the diagnosis of Diabetes Mellitus. ADA recommended reference rangePerformed By: #### CBC, CMP ####[facility] [place] [address] USAPotassium [Moles/Vol]3.3 mmol/LLow3.5-5.1The [facility] Comment on above:Performed By: #### CBC, CMP ####[address] [place] [address] USAProtein [Mass/Vol]5.2 g/dLLow6.4-8.9 The [facility] Health Physician GroupComment on above:Performed By: #### CBC, CMP ####[address] [place] [address] USASodium [Moles/Vol]132 mmol/OXec353-284Jii [facility] Physician GroupComment on above: Performed By: #### CBC, CMP ####[address] [address] USAUrea nitrogen [Mass/Vol]34 mg/dLHigh7-25The [facility] Health Physician GroupComment on above:Performed By: #### CBC, CMP ####[address] [facility] Vancomycin [Mass/volume] in Serum or Plasma --peakOrdered By: Mario Jordan on 48-98-8866Wjjhwycdxi peak [Mass/Vol]Vancomycin [Mass/volume] in Serum or Plasma --peak20.0-40.0[facility] HospitalVancomycin peak [Mass/Vol]27.3 ug/mL20.0-40.0[facility] HospitalComment on above:Last dose: - Vancomycin,Peakon 40-02-3824Odjwmatlvn,Peak27.3 ug/nADmfkkm92.0-40.0The [facility] Health Physician GroupComment on above:Order Comment: Comment ?DRAW 1 HOUR AFTER INFUSION COMPLETES Date of last dose?: [id number] Time of last dose?: 1800 Result Comment: Last dose: -PERFORMED BY:[address] [place], [place] [phone] MEDICAL DIRECTORJAJA CATES M.D.Performed By: #### VANCP ####[address] [place] [address] USAAcanthocytes [Presence] in Blood by Light microscopyOrdered By: Mario Jordan on 14-75-9468Srhgdveuoqds LM Ql (Bld) Acanthocytes [Presence] in Blood by Light microscopyOhio Valley Surgical HospitalAcanthocytes LM Ql (Bld)SlightOhio Valley Surgical Hospital Anisocytosis LM Ql (Bld)Ordered By: Mario Jordan on 35-40-2572Auicnsngmfva Ql (Bld)Anisocytosis [Presence] in Blood by Light microscopyOhio Valley Surgical HospitalAnisocytosis [Presence] in Blood by Light microscopyOrdered By: Mario Jordan on 94-16-0265Koyqixbixeya Ql (Bld)SlightNormalOhio Valley Surgical HospitalComment on above:Performed By: #### PHOS, CMP, SCAN CBC, MG ####[address] [place] [phone] USACT abdomen pelvis wo conon 19-55-7920NH abdomen pelvis wo conNormalThe [facility] Physician [facility] HospitalComprehensive Metabolic Panelon 67-12-4732Dfbjalr [Mass/Vol]2.6 g/dLLow3.5-5.7The [facility] Health Physician GroupComment on above:Performed By: #### PHOS, CMP, SCAN CBC, MG ####[address] [place] [address] USAAlbumin/Globulin [Mass ratio]1.1 {ratio}NormalThe [facility] Health Physician GroupComment on above:Performed By: #### PHOS, CMP, SCAN CBC, MG ####[address] [place] [address] USAALP [Catalytic activity/Vol]69 U/GDjwwcp32-510Jne [facility] Comment on above:Performed By: #### PHOS, CMP, SCAN CBC, MG ####[address] [place] [address] USAALT [Catalytic activity/Vol]5 U/LLow7-52The [facility] Health Physician GroupComment on above:Performed By: #### PHOS, CMP, SCAN CBC, MG ####[place] [address] USAAnion gap [Moles/Vol]11.7 mmol/LNormal6.0-15.0The [facility] Health Physician GroupComment on above:Performed By: #### PHOS, CMP, SCAN CBC, MG ####[place] [address] USAAST [Catalytic activity/Vol]11 U/MIdn27-63Uzw [facility] Comment on above:Performed By: #### PHOS, CMP, SCAN CBC, MG ####[place] [address] USABilirubin [Mass/Vol] 0.5 mg/dLNormal0.3-1.0The [facility] Health Physician GroupComment on above:Performed By: #### PHOS, CMP, SCAN CBC, MG ####[place] [address] USACalcium [Mass/Vol]8.1 mg/dLLow8.6-10.3The [facility] Health Physician GroupComment on above:Performed By: #### PHOS, CMP, SCAN CBC, MG ####[place] [address] [place] Chloride [Moles/Vol]101 mmol/WUeullc46-599Jol [facility] Physician GroupComment on above:Performed By: #### PHOS, CMP, SCAN CBC, MG ####[place] [address] USACO2 [Moles/Vol]24.2 mmol/L Ioedqe94.0-31.0The [facility] Health Physician GroupComment on above:Performed By: #### PHOS, CMP, SCAN CBC, MG ####[place] [address] USACreatinine [Mass/Vol]1.75 mg/dLHigh0.70-1.30The [facility] Health Physician GroupComment on above:Performed By: #### PHOS, CMP, SCAN CBC, MG ####[place] [address] USACreatinine Clr Calc Wgtfswsa57.84NoCritical access hospital Physician [facility] HospitalComment on above:Performed By: #### PHOS, CMP, SCAN CBC, MG ####[address] [place] [address] USAEstimated GFR38.393 mL/Min NormalThe [facility] Physician [facility] HospitalComment on above:Performed By: #### PHOS, CMP, SCAN CBC, MG ####[place] [address] USAGlobulin (S) [Mass/Vol]2.3 g/dLNoCritical access hospital Physician [facility] Comment on above:Performed By: #### PHOS, CMP, SCAN CBC, MG ####[place] [address] USAGlucose [Mass/Vol]66 mg/mMUrl57-408Wfn [facility] Physician GroupComment on above:Result Comment: Random Glucose Reference Range is dependent on time and content of last meal. Glucose of more than 200 mg/dL in a nonstressed, ambulatory subject supports the diagnosis of Diabetes Mellitus. ADA recommended reference rangePerformed By: #### PHOS, CMP, SCAN CBC, MG ####[place] [address] USAPotassium [Moles/Vol]3.9 mmol/LNormal3.5-5.1The [facility] Physician [facility] HospitalComment on above:Performed By: #### PHOS, CMP, SCAN CBC, MG ####[place] [address] USAProtein [Mass/Vol]4.9 g/dLSignificant change down6.4-8.9The [facility] Physician [facility] HospitalComment on above:Performed By: #### PHOS, CMP, SCAN CBC, MG ####[place] [address] USASodium [Moles/Vol]133 mmol/IXrn336-037Hai [facility]ician [facility] HospitalComment on above: Performed By: #### PHOS, CMP, SCAN CBC, MG ####[address] [place] [address] USAUrea nitrogen [Mass/Vol]34 mg/dLBluefield Regional Medical Center 7 [facility] Health Physician GroupComment on above:Performed By: #### PHOS, CMP, SCAN CBC, MG ####[address] [place] [address] USADacrocytes [Presence] in Blood by Light microscopyOrdered By: Mario Jordan on 32-06-3135Wfysinrktz LM Ql (Bld)Teardrop cell detectionOhio Valley Surgical HospitalDacrocytes LM Ql (Bld)SlightOhio Valley Surgical HospitalErythrocyte morphology finding [Identifier] in BloodOrdered By: Mario Jordan on 81-99-5857DKE morphology finding Nom (Bld)RBC morphologyOhio Valley Surgical HospitalRBC morphology finding Nom (Bld)N/[facility] DaytonHypochromia LM Ql (Bld)Ordered By: Mario Jordan on 07-13-2024 Hypochromia Ql (Bld)Hypochromia [Presence] in Blood by Light microscopyOhio Valley Surgical HospitalHypochromia Ql (Bld)[facility] CenterMRSA - MSSA Nasal PCRon [id number] - MSSA Nasal PCRNoCritical access hospital Physician GroupComment on above:Performed By: #### MRSA - MSSA PCR ####[address] [address] [facility] Magnesium [Mass/volume] in Serum or PlasmaOrdered By: Mario Jordan on 07-13-2024 Magnesium [Mass/Vol]Magnesium [Mass/volume] in Serum or PlasmaLow1.9-2.7 [facility] Surgical HospitalMagnesium [Mass/Vol]1.8 mg/dLLow1.9-2.7 [facility] Surgical HospitalComment on above:Result Comment: PERFORMED BY:[address] [place], [place] [phone] MEDICAL DIRECTORJAJA CATES M.D.Performed By: #### PHOS, CMP, SCAN CBC, MG ####[address] [address] USAMicrocytes LM Ql (Bld)Ordered By: Mario Jordan on 67-67-0302Tcwxzuxdqs Ql (Bld)Microcytes [Presence] in Blood by Light microscopy [facility] Surgical HospitalMicrocytes Ql (Bld)[facility] CenterNo Panel InformationOrdered By: Mario Jordan on 69-44-8588Xhgkv Screen MRSA/MSSAccess Hospital DaytonOvalocytes [Presence] in Blood by Light microscopyOrdered By: Mario Jordan on 65-44-1125Gakclrslcf LM Ql (Bld) Ovalocyte detectionOhio Valley Surgical HospitalOvalocytes LM Ql (Bld)[facility] HospitalPhosphate [Mass/volume] in Serum or Plasma Ordered By: Mario Jordan on 29-87-4831Tfcsxkygj [Mass/Vol]Phosphate [Mass/volume] in Serum or Plasma2.5-4.5FCommunity Regional Medical CenterPhosphate [Mass/Vol] 3.0 mg/dLNormal2.5-4.5FCommunity Regional Medical CenterComment on above: Performed By: #### PHOS, CMP, SCAN CBC, MG ####[facility] [id number] USAPlatelet adequacy [Presence] in Blood by Light microscopyOrdered By: Mario Jordan on 36-22-7562Hbybcfacs LM Ql (Bld) Platelet adequacy [Presence] in Blood by Light microscopyNoMercy Health Defiance HospitalPlatelets LM Ql (Bld)NormalNoMercy Health Defiance HospitalPlatelet morphology finding [Identifier] in BloodOrdered By: Mario Jordan on 75-53-7885Whzbinmi morphology finding Nom (Bld)Platelet morphology finding [Identifier] in BloodOhio Valley Surgical HospitalPlatelet morphology finding Nom (Bld)N/AFCommunity Regional Medical CenterPlatelets Large [Presence] in Blood by Light microscopyOrdered By: Mario Jordan on 07-13-2024 Platelets Large LM Ql (Bld)Platelets Large [Presence] in Blood by Light microscopyOhio Valley Surgical HospitalPlatelets Large LM Ql (Bld)Slight [facility] HospitalPoikilocytosis [Presence] in Blood by Light microscopyOrdered By: Mario Jordan on 17-27-3989Wpthashbizghrq LM Ql (Bld) Poikilocytosis [Presence] in Blood by Light microscopyOhio Valley Surgical HospitalPoikilocytosis LM Ql (Bld)ModerateOhio Valley Surgical Hospital Polychromasia [Presence] in Blood by Light microscopyOrdered By: Mario Jordan on 75-92-0750Twmumfxklncwq LM Ql (Bld)Polychromasia [Presence] in Blood by Light microscopyOhio Valley Surgical HospitalPolychromasia LM Ql (Bld)Slight [facility] Valley Hospitalcan and CBCon 66-09-7015WrbcjnxorgbeFavolf NormalThe Unc Health Physician GroupComment on above:Performed By: #### PHOS, CMP, SCAN CBC, MG ####[place] [address] USABasophils (Bld) [#/Vol]0.1 10*3/uLNormal0.0-0.2The Unc Health Physician GroupComment on above:Performed By: #### PHOS, CMP, SCAN CBC, MG ####[place] [phone] [place] Basophils/100 WBC (Bld)0.2 %Normal.The Unc Health Physician GroupComment on above:Performed By: #### PHOS, CMP, SCAN CBC, MG ####[address] [address] USAEosinophils (Bld) [#/Vol]0.0 10*3/uL Normal0.0-0.45The Unc Health Physician GroupComment on above:Performed By: #### PHOS, CMP, SCAN CBC, MG ####[place] [phone] USAEosinophils/100 WBC (Bld)0.1 %Normal.The Unc Health Physician GroupComment on above:Performed By: #### PHOS, CMP, SCAN CBC, MG ####[place] [phone] [place] Erythrocyte distribution width (RBC) [Ratio]18.4 %High12.0-14.8The Unc Health Physician GroupComment on above:Performed By: #### PHOS, CMP, SCAN CBC, MG ####[address] [address] [place] Hematocrit (Bld) [Volume fraction]25.1 %Low38.8-50.0The Unc Health Physician GroupComment on above:Performed By: #### PHOS, CMP, SCAN CBC, MG ####[address] [address] USAHemoglobin (Bld) [Mass/Vol]8.0 g/dLLow13.0-17.0The Unc Health Physician GroupComment on above: Performed By: #### PHOS, CMP, SCAN CBC, MG ####[address] [address] USAHypochromasiaSIredell Memorial Hospital Physician GroupComment on above:Performed By: #### PHOS, CMP, SCAN CBC, MG ####[address] [address] USALarge PlateletsSIredell Memorial Hospital Physician GroupComment on above:Result Comment: PERFORMED BY:[address]ToshaRICHEYV[place], [place] [phone] MEDICAL DIRECTORJAJA CATES M.D. Performed By: #### PHOS, CMP, SCAN CBC, MG ####[address] [address] USALymphocytes (Bld) [#/Vol]0.7 10*3/uL Low1.00-4.8The Unc Health Physician GroupComment on above:Performed By: #### PHOS, CMP, SCAN CBC, MG ####[address] [address] USALymphocytes/100 WBC (Bld)2.7 %Normal.The Un[facility] Health Physician GroupComment on above:Performed By: #### PHOS, CMP, SCAN CBC, MG ####[address] [address] USAMCH (RBC) [Entitic mass]29.1 qoGwxnga35.5-35.2The Unc Health Physician GroupComment on above:Performed By: #### PHOS, CMP, SCAN CBC, MG ####[place] [address] USAMCV (RBC) [Entitic vol]90.9 fL Eszyut01.5-101The Unc Health Physician GroupComment on above:Performed By: #### PHOS, CMP, SCAN CBC, MG ####[place] [address] USAMean Corpuscular HGB Conc32.0 g/dLLow32.5-35.6The Unc Health Physician GroupComment on above:Performed By: #### PHOS, CMP, SCAN CBC, MG ####[place] [address] USAMicrocytosisSlightNormalThe Unc Health Physician GroupComment on above: Performed By: #### PHOS, CMP, SCAN CBC, MG ####[place] [address] USAMonocytes (Bld) [#/Vol]1.8 10*3/uLHigh 0.0-0.8The Unc Health Physician GroupComment on above:Performed By: #### PHOS, CMP, SCAN CBC, MG ####[place] [address] USAMonocytes/100 WBC (Bld)6.8 %Normal.The [facility]ician Group Comment on above:Performed By: #### PHOS, CMP, SCAN CBC, MG ####[place] [address] USANeutrophils (Bld) [#/Vol]24.1 10*3/uLHigh1.8-7.7The Un[facility] Health Physician GroupComment on above: Performed By: #### PHOS, CMP, SCAN CBC, MG ####[place] [address] USANeutrophils/100 WBC (Bld)90.2 %Normal. The Unc Health Physician GroupComment on above:Performed By: #### PHOS, CMP, SCAN CBC, MG ####[address] [place] [address] USANRBC%0.1 /100{WBC}Normal0-0.5The Unc Health Physician GroupComment on above: Performed By: #### PHOS, CMP, SCAN CBC, MG ####[address] [address] USAOvalocytesSlightAdventHealth Ocala Physician GroupComment on above:Performed By: #### PHOS, CMP, SCAN CBC, MG ####[address] [address] [place] Platelet EstimateNormalNormalAdventHealth Ocala Physician GroupComment on above:Performed By: #### PHOS, CMP, SCAN CBC, MG ####[address] [address] USAPlatelet mean volume (Bld) [Entitic vol]7.7 fLNormal6.6-10.1The Unc Health Physician GroupComment on above:Performed By: #### PHOS, CMP, SCAN CBC, MG ####[address] [address] USAPlatelets (Bld) [#/Vol]179 10*3/vERpsbrl525-456Txi Unc Health Physician GroupComment on above:Performed By: #### PHOS, CMP, SCAN CBC, MG ####[address] [address] USAPoikilocytosisModerateNormHCA Florida Lake Monroe Hospital Physician GroupComment on above: Performed By: #### PHOS, CMP, SCAN CBC, MG ####[address] [address] USAPolychromasiaSlightAdventHealth Ocala Physician GroupComment on above:Performed By: #### PHOS, CMP, SCAN CBC, MG ####[address] [address] USARBC (Bld) [#/Vol]2.77 10*6/uLLow3.90-5.60The Un[facility] Health Physician GroupComment on above:Performed By: #### PHOS, CMP, SCAN CBC, MG ####[address] [place] [address] USASchistocytesUNC Health Nash Physician GroupComment on above:Performed By: #### PHOS, CMP, SCAN CBC, MG ####[address] [address] USATear Drop CellsSlightAdventHealth Ocala Physician GroupComment on above:Performed By: #### PHOS, CMP, SCAN CBC, MG ####[address] [address] USAWBC (Bld) [#/Vol]26.7 10*3/uLHigh4.1-10.5The Unc Health Physician GroupComment on above:Performed By: #### PHOS, CMP, SCAN CBC, MG ####[address] [address] USASchistocytes [Presence] in Blood by Light microscopyOrdered By: Mario Jordan on 83-61-0197Wgrennielpbv LM Ql (Bld)Schistocytes [Presence] in Blood by Light microscopyBlanchard Valley Health System Blanchard Valley Hospitalchistocytes LM Ql (Bld)Slight [facility] Bl[facility] Valley Hospitaltool Occult Blood (Guaiac)on 73-29-7862Dznks Occult Blood (Guaiac)NormalThe Unc Health Physician GroupComment on above: Performed By: #### OB(GUAIAC) ####[address] [address]BLFFduof gastrointestinal hemoglobin detectionOrdered By: Melvi Qureshi on 40-62-6225Dgzbvimqtf.gastrointestinal Ql (Stl)Stool gastrointestinal hemoglobin detectionOhio Valley Surgical Hospital Hemoglobin.gastrointestinal Ql (Stl)[facility] Surgical HospitalAlanine aminotransferase [Enzymatic activity/volume] in Serum or PlasmaOrdered By: Melvi Qureshi on 97-05-2566WJQ [Catalytic activity/Vol]Alanine aminotransferase [Enzymatic activity/volume] in Serum or PlasmaLow7-52Ohio [facility] Surgical HospitalAlbumin [Mass/volume] in Serum or Plasma by Bromocresol green (BCG) dye binding methoOrdered By: Melvi Qureshi on 12-41-2157Bvgggzz BCG dye [Mass/Vol] Albumin [Mass/volume] in Serum or Plasma by Bromocresol green (BCG) dye binding methoLow3.5-5.7FCommunity Regional Medical CenterAlkaline phosphatase [Enzymatic activity/volume] in Serum or PlasmaOrdered By: Melvi Qureshi on 46-34-5880BKH [Catalytic activity/Vol]Alkaline phosphatase [Enzymatic activity/volume] in Serum or Wddfca30-715GimhrpymwOhio Valley Surgical HospitalAmbulatory Visit Summaryon 16-95-4601Pyndtbftbi Visit SummaryAmbulatory Visit Summary TAVO WALLIS :1940 [...] Ambar Summers PA-C Where: [facility] [address] [place] [address]- You Need to Schedule the Following Appointments [...] Arthritis BPH with obstruction/lowe (more content not included)...[facility] HospitalAspartate aminotransferase [Enzymatic activity/volume] in Serum or PlasmaOrdered By: Melvi Qureshi on 30-08-0507PCG [Catalytic activity/Vol]Aspartate aminotransferase [Enzymatic activity/volume] in Serum or Yvnlff83-53VrpxvzgguOhio Valley Surgical HospitalBNP ser/plasOrdered By: Melvi Qureshi on 07-12-2024 Natriuretic peptide B (Bld) [Mass/Vol]164.0 pg/mLHigh5-100Ohio Valley Surgical HospitalComment on above:Result Comment: PERFORMED BY:[facility] [place], [place] [phone] MEDICAL DIRECTORJAJA CATES M.D.Performed By: #### BNP ####[facility] [place] [address] USABacteria [Presence] in Urine sediment by Light microscopyOrdered By: Melvi Qureshi on 08-41-9452Sdsgjufh LM Ql (Urine sed)Bacteria [Presence] in Urine sediment by Light microscopyPremier Health Upper Valley Medical CenterBacteria LM Ql (Urine sed)1+ [HPF][facility] Medical CenterBand form neutrophils/100 WBC Manual cnt (Bld)Ordered By: Mario Jordan on 47-83-8045Bkal form neutrophils/100 WBC (Bld) Peripheral white blood cell differential % bands, microscopic exam0-Community Regional Medical CenterBand form neutrophils/100 leukocytes in Blood by Manual countOrdered By: Mario Jordan on 92-62-5629Ikpe form neutrophils/100 WBC (Bld)3 % Normal0-Community Regional Medical CenterComment on above:Order Comment: 4P/33 Performed By: #### DIFF CBC ####[facility] [address] [id number] USABasophils Auto (Bld) [#/Vol]Ordered By: Melvi Qureshi on 34-57-9604Dbsvhrcpt (Bld) [#/Vol]Automated basophil count0.0-0.2FCommunity Regional Medical CenterBasophils/100 WBC Auto (Bld)Ordered By: Melvi Qrueshi on 74-00-8532Wegmrbubu/100 WBC (Bld)Automated basophil %.Ohio Valley Surgical HospitalBilirubin Test strip Ql (U)Ordered By: Melvi Qureshi on 38-53-1968Zyodmndhz Ql (U)Bilirubin.total [Presence] in Urine by Test stripNegativeOhio Valley Surgical HospitalBilirubin Ql (U)See commentNegativeOhio Valley Surgical HospitalComment on above:Unable to obtain accurate result due to color interference.Bilirubin.total [Mass/volume] in Serum or PlasmaOrdered By: Melvi Qureshi on 60-36-1730Hdijwpval [Mass/Vol]Bilirubin.total [Mass/volume] in Serum or Plasma0.3-1.0Ohio [facility] Surgical HospitalBlood Cultureon 43-68-0083Yboxsaln identified Cx Nom (Bld)NormalThe Unc Health Physician GroupComment on above: Performed By: #### HS TROP, CBC, CUBLD, MG, LACTIC, CMP ####[facility] [address] [place] [address] USACOVID Cepheid NegativeOrdered By: Melvi Qureshi on 60-88-2988GZCS-CoV-2 (COVID-19) Ab IA QlNegativeNegOhioHealth Arthur G.H. Bing, MD, Cancer CenterComment on above:This is a duplicate Cepheid Xpert Xpress CoV-2/Flu/RSV Plus RNA by RT-PCR result to be used for statistical tracking purpose only.SARS-CoV-2 (COVID-19) RNA SMITHA+probe Ql (Unsp spec)COVID CepheidNegativeBlanchard Valley Health System Blanchard Valley HospitalARS-CoV-2 (COVID-19) RNA SMITHA+probe Ql (Unsp spec)NegativeNormalNegativeOhio Valley Surgical Hospital Comment on above:Result Comment: This is a duplicate Cepheid Xpert Xpress CoV- 2/Flu/RSV Plus RNA by RT-PCR result zaira used for statistical tracking purpose only.PERFORMED BY:[address] [place], [place] [phone] MEDICAL DIRECTORJAJA CATES M.D. Performed By: #### COVID19 FLU RSV, CEPHEID NEG ####[address] [place] [address] USACalcium [Mass/volume] in Serum or PlasmaOrdered By: Melvi Qureshi on 43-90-6248Qtmfigd [Mass/Vol]Calcium [Mass/volume] in Serum or Plasma8.6-10.3FCommunity Regional Medical CenterCarbon dioxide, total [Moles/volume] in Serum or PlasmaOrdered By: Melvi Qureshi on 71-25-5482JD3 [Moles/Vol]Carbon dioxide, total [Moles/volume] in Serum or Plasma 21.0-31.0Ohio [facility] Surgical HospitalChloride [Moles/volume] in Serum or PlasmaOrdered By: Melvi Qureshi on 53-09-2733Edznpxgk [Moles/Vol]Chloride [Moles/volume] in Serum or Mtncoz32-972XpnlwhvhkOhio Valley Surgical HospitalComplete Blood Count Auto Diffon 50-75-2226Ipormiujh (Bld) [#/Vol]0.0 10*3/uLNormal 0.0-0.2The Unc Health Physician GroupComment on above:Result Comment: PERFORMED BY:[address] [place], [place] [phone] MEDICAL DIRECTORJAJA CATES M.D.Performed By: #### HS TROP, CBC, CUBLD, MG, LACTIC, CMP ####[place] [address] USABasophils/100 WBC (Bld)0.3 %Normal.The Unc Health Physician GroupComment on above:Performed By: #### HS TROP, CBC, CUBLD, MG, LACTIC, CMP ####[place] [address] USAEosinophils (Bld) [#/Vol]0.1 10*3/uLNormal0.0-0.45The Unc Health Physician GroupComment on above:Performed By: #### HS TROP, CBC, CUBLD, MG, LACTIC, CMP ####[place] [address] USAEosinophils/100 WBC (Bld)1.3 %Normal.The [facility] Comment on above:Performed By: #### HS TROP, CBC, CUBLD, MG, LACTIC, CMP ####[place] [address] [place] Erythrocyte distribution width (RBC) [Ratio]17.9 %High12.0-14.8The Unc Health Physician GroupComment on above:Performed By: #### HS TROP, CBC, CUBLD, MG, LACTIC, CMP ####[place] [address] USAHematocrit (Bld) [Volume fraction]29.8 %Low38.8-50.0The Unc Health Physician GroupComment on above:Performed By: #### HS TROP, CBC, CUBLD, MG, LACTIC, CMP ####[place] [address] USAHemoglobin (Bld) [Mass/Vol]9.9 g/dLLow13.0-17.0The Unc Health Physician GroupComment on above:Performed By: #### HS TROP, CBC, CUBLD, MG, LACTIC, CMP ####[place] [address] [place] Lymphocytes (Bld) [#/Vol]0.3 10*3/uLLow1.00-4.8The [facility] Physician Group Comment on above:Performed By: #### HS TROP, CBC, CUBLD, MG, LACTIC, CMP ####[address] Lymphocytes/100 WBC (Bld)4.2 %Normal.The Unc Health Physician GroupComment on above:Performed By: #### HS TROP, CBC, CUBLD, MG, LACTIC, CMP ####[address] (RBC) [Entitic mass]30.1 moStfyuv78.5-35.2The Unc Health Physician GroupComment on above: Performed By: #### HS TROP, CBC, CUBLD, MG, LACTIC, CMP ####[address] (RBC) [Entitic vol]90.8 fL Svbhtv99.5-101The Unc Health Physician GroupComment on above:Performed By: #### HS TROP, CBC, CUBLD, MG, LACTIC, CMP ####[place] [address] USAMean Corpuscular HGB Conc33.2 g/dLNormal 32.5-35.6The Unc Health Physician GroupComment on above:Performed By: #### HS TROP, CBC, CUBLD, MG, LACTIC, CMP ####[place] [address] USAMonocyte Distribution WidthNot performedNormal 0.00-20.00The Unc Health Physician GroupComment on above:Result Comment: Unable to calculate MDW because the Absolute Monocyte Count is <0.8.Performed By: #### HS TROP, CBC, CUBLD, MG, LACTIC, CMP ####[place] [address] USAMonocytes (Bld) [#/Vol]0.0 10*3/uLNormal 0.0-0.8The Unc Health Physician GroupComment on above:Performed By: #### HS TROP, CBC, CUBLD, MG, LACTIC, CMP ####[address] [address] USAMonocytes/100 WBC (Bld)0.4 %Normal.The Unc Health Physician GroupComment on above:Performed By: #### HS TROP, CBC, CUBLD, MG, LACTIC, CMP ####[place] [address] USANeutrophils (Bld) [#/Vol]6.3 10*3/uLNormal1.8-7.7The Unc Health Physician GroupComment on above:Performed By: #### HS TROP, CBC, CUBLD, MG, LACTIC, CMP ####[place] [address] USANeutrophils/100 WBC (Bld)93.8 %Normal.The [facility] Comment on above:Performed By: #### HS TROP, CBC, CUBLD, MG, LACTIC, CMP ####[place] [phone] USANRBC% 0.2 /100{WBC}Normal0-0.5The Unc Health Physician GroupComment on above:Performed By: #### HS TROP, CBC, CUBLD, MG, LACTIC, CMP ####[address] [phone] USAPlatelet mean volume (Bld) [Entitic vol]7.2 fLNormal6.6-10.1The Unc Health Physician GroupComment on above:Performed By: #### HS TROP, CBC, CUBLD, MG, LACTIC, CMP ####[place] [address] USAPlatelets (Bld) [#/Vol]288 10*3/uL Nvwmeo930-072Tuw [facility] Health Physician GroupComment on above:Performed By: #### HS TROP, CBC, CUBLD, MG, LACTIC, CMP ####[place] [address] USARBC (Bld) [#/Vol]3.28 10*6/uLLow3.90-5.60The [facility] Health Physician GroupComment on above:Performed By: #### HS TROP, CBC, CUBLD, MG, LACTIC, CMP ####[place] [address] USAWBC (Bld) [#/Vol]6.5 10*3/uLNormal4.1-10.5The [facility] Health Physician GroupComment on above:Performed By: #### HS TROP, CBC, CUBLD, MG, LACTIC, CMP ####[address] [place] [phone] USAComprehensive Metabolic Panelon 31-24-8008Kvtooqe [Mass/Vol]3.4 g/dLLow3.5-5.7The [facility] Health Physician GroupComment on above: Performed By: #### HS TROP, CBC, CUBLD, MG, LACTIC, CMP ####[place] [address] USAAlbumin/Globulin [Mass ratio] 1.0 {ratio}NormalThe Unc Health Physician GroupComment on above:Performed By: #### HS TROP, CBC, CUBLD, MG, LACTIC, CMP ####[address] [phone] USAALP [Catalytic activity/Vol]100 U/LNormal 34-104The [facility] Health Physician GroupComment on above:Performed By: #### HS TROP, CBC, CUBLD, MG, LACTIC, CMP ####[place] [address] USAALT [Catalytic activity/Vol]6 U/LLow7-52The [facility] Health Physician GroupComment on above:Performed By: #### HS TROP, CBC, CUBLD, MG, LACTIC, CMP ####[place] [phone] USAAnion gap [Moles/Vol]9.7 mmol/LNormal6.0-15.0The [facility] Health Physician GroupComment on above:Performed By: #### HS TROP, CBC, CUBLD, MG, LACTIC, CMP ####[place] [address] USAAST [Catalytic activity/Vol]13 U/LNgfpws89-84Qbm [facility] Physician GroupComment on above:Performed By: #### HS TROP, CBC, CUBLD, MG, LACTIC, CMP ####[place] [address] USABilirubin [Mass/Vol]0.6 mg/dLNormal0.3-1.0The [facility] Health Physician GroupComment on above:Performed By: #### HS TROP, CBC, CUBLD, MG, LACTIC, CMP ####[place] [address] USACalcium [Mass/Vol]9.0 mg/dLNormal8.6-10.3The [facility] Health Physician GroupComment on above:Performed By: #### HS TROP, CBC, CUBLD, MG, LACTIC, CMP ####[place] [address] USAChloride [Moles/Vol]102 mmol/AVnhwkg45-781Qbu [facility] Physician GroupComment on above:Performed By: #### HS TROP, CBC, CUBLD, MG, LACTIC, CMP ####[place] [address] USACO2 [Moles/Vol]27.2 mmol/ZDtfvrm71.0-31.0The [facility] Health Physician GroupComment on above:Performed By: #### HS TROP, CBC, CUBLD, MG, LACTIC, CMP ####[place] [address] USACreatinine [Mass/Vol]1.62 mg/dLHigh0.70-1.30The [facility] Health Physician GroupComment on above:Performed By: #### HS TROP, CBC, CUBLD, MG, LACTIC, CMP ####[place] [address] USACreatinine Clr Calc Afadvszz64.97NormHCA Florida Lake Monroe Hospital Physician GroupComment on above:Performed By: #### HS TROP, CBC, CUBLD, MG, LACTIC, CMP ####[place] [address] USAEstimated GFR42.119 mL/MinNoCritical access hospital Physician GroupComment on above:Performed By: #### HS TROP, CBC, CUBLD, MG, LACTIC, CMP ####[place] [address] USAGlobulin (S) [Mass/Vol]3.3 g/dLNormalThe Un[facility] Health Physician GroupComment on above:Performed By: #### HS TROP, CBC, CUBLD, MG, LACTIC, CMP ####[place] [address] USAGlucose [Mass/Vol]69 mg/vVEsq82-568Aup [facility] Health Physician GroupComment on above:Result Comment: Random Glucose Reference Range is dependent on time and content of last meal. Glucose of more than 200 mg/dL in a nonstressed, ambulatory subject supports the diagnosis of Diabetes Mellitus. ADA recommended reference rangePerformed By: #### HS TROP, CBC, CUBLD, MG, LACTIC, CMP ####[place] [address] USAPotassium [Moles/Vol]3.9 mmol/LNormal3.5-5.1The [facility] Health Physician GroupComment on above:Performed By: #### HS TROP, CBC, CUBLD, MG, LACTIC, CMP ####[place] [address] USAProtein [Mass/Vol]6.7 g/dLNormal6.4-8.9The [facility] Health Physician GroupComment on above:Performed By: #### HS TROP, CBC, CUBLD, MG, LACTIC, CMP ####[place] [address] USASodium [Moles/Vol]135 mmol/ENug456-897Pvu [facility] Comment on above:Performed By: #### HS TROP, CBC, CUBLD, MG, LACTIC, CMP ####[place] [address] USAUrea nitrogen [Mass/Vol]33 mg/dLHigh7-25The [facility] Health Physician GroupComment on above:Performed By: #### HS TROP, CBC, CUBLD, MG, LACTIC, CMP ####[address] [address] USACreatinine [Mass/volume] in Serum or PlasmaOrdered By: Melvi Qureshi on 16-70-1900Gcxwshxxmr [Mass/Vol]Creatinine [Mass/volume] in Serum or PlasmaHigh0.70-1.30Ohio [facility] Surgical HospitalDiff and CBCon 08-64-9958Zqmlwvqcubut Ql (Bld)Slight NormalThe Unc Health Physician GroupComment on above:Order Comment: Performed By: #### DIFF CBC ####[place] [id number] USAErythrocyte distribution width (RBC) [Ratio]18.2 % High12.0-14.8The [facility]c Health Physician GroupComment on above:Order Comment: Performed By: #### DIFF CBC ####[place] [id number] USAHematocrit (Bld) [Volume fraction]28.2 %Low38.8-50.0 The [facility] Health Physician GroupComment on above:Order Comment: Performed By: #### DIFF CBC ####[address] [address] USAHemoglobin (Bld) [Mass/Vol]9.0 g/dLLow13.0-17.0The [facility] Health Physician GroupComment on above:Order Comment: Performed By: #### DIFF CBC ####[address] [address] USAMCH (RBC) [Entitic mass]29.4 afVffihy05.5-35.2The [facility] Health Physician GroupComment on above:Order Comment: Performed By: #### DIFF CBC ####[place] [id number] USAMCV (RBC) [Entitic vol]91.9 fL Uapaag13.5-101The [facility] Health Physician GroupComment on above:Order Comment: Performed By: #### DIFF CBC ####[place] [id number] USAMean Corpuscular HGB Conc32.0 g/dLLow32.5-35.6The [facility] Health Physician GroupComment on above:Order Comment: Performed By: #### DIFF CBC ####[address] [address] USAMicrocytosisSlightNoCritical access hospital Physician GroupComment on above:Order Comment: Performed By: #### DIFF CBC ####[place] [id number] USAMonocytes/100 WBC (Bld)29.58 %High0.00-20.00 [facility] Physician GroupComment on above:Order Comment: Result Comment: For adults in ED, MDW > 20.0 may be associated with a higher risk of sepsis during the first 12 hrs of hospital admission The predictive value of MDW for identifying sepsis in patients with hematological abnormalities has not been establishedPerformed By: #### DIFF CBC ####[address] [address] USAOvalocytesSlightNoCritical access hospital Physician GroupComment on above:Order Comment: Performed By: #### DIFF CBC ####[address] [address] [place] Platelet EstimateNormalNormalNormHCA [facility] Physician GroupComment on above:Order Comment: Performed By: #### DIFF CBC ####[address] [address] USAPlatelet mean volume (Bld) [Entitic vol]7.3 fLNormal6.6-10.1The [facility] Health Physician GroupComment on above: Order Comment: Performed By: #### DIFF CBC ####[address] [address] USAPlatelet MorphologyNormalNormalNormal The [facility] Health Physician GroupComment on above:Order Comment: Result Comment: PERFORMED BY:[address] [place], [place] [phone] MEDICAL DIRECTORJAJA CATES M.D. Performed By: #### DIFF CBC ####[address] [address] USAPlatelets (Bld) [#/Vol]217 10*3/eDIoumbi231-775Gfe [facility] Physician GroupComment on above:Order Comment: 4PPerformed By: #### DIFF CBC ####[address] [address] USAPoikilocytosisSlightNoCritical access hospital Physician GroupComment on above:Order Comment: 4PPerformed By: #### DIFF CBC ####[address] [address] USARBC (Bld) [#/Vol]3.07 10*6/uLLow 3.90-5.60The [facility] Health Physician GroupComment on above:Order Comment: 4 Performed By: #### DIFF CBC ####[address] [address] USAStomatocytesSlightNoCritical access hospital Physician GroupComment on above:Order Comment: 4Performed By: #### DIFF CBC ####[address] [address] USAWBC (Bld) [#/Vol]21.3 10*3/uLHigh4.1-10.5The [facility] Health Physician GroupComment on above:Order Comment: Performed By: #### DIFF CBC ####[address] [address] USADipstick and Microscopicon 14-35-3644Twaxahsn,Urine1+HighNone SeenThe Unc Health Physician GroupComment on above:Order Comment: Name Collection Type:: Chou CatheterResult Comment: PERFORMED BY:[address] [address] [address] QUANToshaDaneAMEENAMEDINA, [place] [phone] MEDICAL DIRECTORJAJA CATES M.D. Performed By: #### ADDONUAPLUS ####[address] [place] [address] USABilirubin,UrineNormalNegativeBaptist Health Wolfson [facility]'S Hospital Physician GroupComment on above:Order Comment: Name Collection Type:: Chou Catheter Result Comment: Unable to obtain accurate result due to color interference. Performed By: #### ADDONUAPLUS ####[address] [place] [address] USAGlucose Ql (U)NormalNormalThe [facility] Health Physician GroupComment on above:Order Comment: Name Collection Type:: Chou CatheterResult Comment: Unable to obtain accurate result due to color interference.Performed By: #### ADDONUAPLUS ####[address] [place] [address] USAKetones Ql (U)NormalNegativeBaptist Health Wolfson Children'S Hospital Physician GroupComment on above:Order Comment: Name Collection Type:: Chou CatheterResult Comment: Unable to obtain accurate result due to color interference.Performed By: #### ADDONUAPLUS ####[address] [place] [address] USALeukocyte esterase Test strip Ql (U)NormalNegative [facility] Physician GroupComment on above:Order Comment: Name Collection Type:: Chou CatheterResult Comment: Unable to obtain accurate result due to color interference.Performed By: #### ADDONUAPLUS ####[address] [place] [address] USANitrite,UrineNormalNegativeBaptist Health Wolf[facility]'S Hospital Physician GroupComment on above:Order Comment: Name Collection Type:: Chou CatheterResult Comment: Unable to obtain accurate result due to color interference.Performed By: #### ADDONUAPLUS ####[address] [place] [address] USAOccult Blood,UrineNormalNegativeBaptist Health Wolf[facility]'S Hospital Physician GroupComment on above:Order Comment: Name Collection Type:: Chou CatheterResult Comment: Unable to obtain accurate result due to color interference.Performed By: #### ADDONUAPLUS ####[address] [place] [address] USApH,UrineNormal5.0-9.0[facility] Physician GroupComment on above:Order Comment: Name Collection Type:: Chou CatheterResult Comment: Unable to obtain accurate result due to color interference.Performed By: #### ADDONUAPLUS ####[address] [place] [address] USAProtein,UrineNormalNegativeBaptist Health Wolf[facility]'S Hospital Physician GroupComment on above:Order Comment: Name Collection Type:: Chou CatheterResult Comment: Unable to obtain accurate result due to color interference.Performed By: #### ADDONUAPLUS ####[address] [place] [address] USARBC,UrineInnumerableHigh0-4The [facility] Health Physician GroupComment on above:Order Comment: Name Collection Type:: Chou CatheterPerformed By: #### ADDONUAPLUS ####[address] [address] USASpecificy Randolph,Urine1.020Normal 1.001-1.030The [facility] Health Physician GroupComment on above:Order Comment: Name Collection Type:: Chou CatheterPerformed By: #### ADDONUAPLUS ####[address] [address] USASquamous Epithelial Cell,Sdtkw0-7Gyxomg4-0Jkx [facility] Physician GroupComment on above:Order Comment: Name Collection Type:: Chou CatheterPerformed By: #### ADDONUAPLUS ####[address] [address] [place] Urobilinogen,UrineNormalNormalThe [facility] Health Physician GroupComment on above: Order Comment: Name Collection Type:: Chou CatheterResult Comment: Unable to obtain accurate result due to color interference.Performed By: #### ADDONUAPLUS ####[address] [address] [place] WBC,Mlnrf05-28Ysvf2-2Cjp [facility] Physician GroupComment on above:Order Comment: Name Collection Type:: Chou CatheterPerformed By: #### ADDONUAPLUS ####[address] [address] USAECG 12 lead ECGon 06-76-7020WIQ 12 lead ECGNormalThe [facility]ician Group Eosinophils Auto (Bld) [#/Vol]Ordered By: Melvi Qureshi on 02-31-8902Ncsrfvrpqbu (Bld) [#/Vol]Automated eosinophil count0.0-0.45[facility] Eosinophils/100 WBC Auto (Bld)Ordered By: Melvi Qureshi on 07-12-2024 Eosinophils/100 WBC (Bld)Automated eosinophil %.[facility] HospitalEosinophils/100 WBC Manual cnt (Bld)Ordered By: Mario Jordan on 07-12-2024 Eosinophils/100 WBC (Bld)Eosinophils/100 leukocytes in Blood by Manual count1- [facility] HospitalEosinophils/100 leukocytes in Blood by Manual countOrdered By: Mario Jordan on 08-61-4088Jbcynyebpwv/100 WBC (Bld)1 %Normal1-3 [facility] HospitalComment on above:Order Comment: 4P/33Performed By: #### DIFF CBC ####[facility] [place] [address] [facility] CENTEREpithelial cells.squamous [#/area] in Urine sediment by Microscopy high power fieldOrdered By: Melvi Qureshi on 21-43-1388Riwtvcskko cells.squamous LM.HPF (Urine sed) [#/Area]Epithelial cells.squamous [#/area] in Urine sediment by Microscopy high power field0-2FCommunity Regional Medical CenterEpithelial cells.squamous LM.HPF (Urine sed) [#/Area]0-1 [HPF]0-2FCommunity Regional Medical CenterErythrocyte distribution width Auto (RBC) [Ratio]Ordered By: Melvi Qureshi on 43-11-9761Gawrzkwnpra distribution width (RBC) [Ratio]Erythrocyte distribution width [Ratio] by Automated zrdxgTrjd27.0-14.8[facility] HospitalErythrocytes [#/area] in Urine sediment by Microscopy high power fieldOrdered By: Melvi Qureshi on 66-77-2450MQN LM.HPF (Urine sed) [#/Area] Erythrocytes [#/area] in Urine sediment by Microscopy high power fieldHigh0-4 [facility] HospitalRB LM.HPF (Urine sed) [#/Area]Innumerable [HPF]High0-4FCommunity Regional Medical CenterGlobulin Calc (S) [Mass/Vol]Ordered By: Melvi Qureshi on 21-13-7990Oalarzlg (S) [Mass/Vol]Serum globulin measurement by calculation (mass/volume)[facility] HospitalGlucose [Mass/volume] in Serum or PlasmaOrdered By: Melvi Qureshi on 03-68-3813Sbfmtwy [Mass/Vol]Glucose [Mass/volume] in Serum or BnqdgzQom93-461WwxshlljlOhio Valley Surgical HospitalGlucose [Mass/volume] in Urine by Test stripOrdered By: Melvi Qureshi on 01-91-0273Wrujugm Test strip (U) [Mass/Vol]Glucose [Mass/volume] in Urine by Test stripNormalOhio Valley Surgical HospitalGlucose Test strip (U) [Mass/Vol]See commentNormMercy Health Defiance HospitalComment on above: Unable to obtain accurate result due to color interference.Hematocrit Auto (Bld) [Volume fraction]Ordered By: Melvi Qureshi on 03-88-3901Hxmszsenpq (Bld) [Volume fraction]Hematocrit [Volume Fraction] of Blood by Automated bodoyYbm62.8-50.0 [facility] HospitalHemoglobin Test strip Ql (U)Ordered By: Melvi Qureshi on 18-04-0263Ophpkqchxw Ql (U)Hemoglobin [Presence] in Urine by Test strip NegativeOhio Valley Surgical HospitalHemoglobin Ql (U)See commentNegative [facility] HospitalComment on above:Unable to obtain accurate result due to color interference.Hemoglobin [Mass/volume] in BloodOrdered By: Melvi Qureshi on 00-82-4358Rjvjykiryy (Bld) [Mass/Vol]Hemoglobin [Mass/volume] in VpwipVke87.0-17.0[facility] HospitalKetones Test strip (U) [Mass/Vol]Ordered By: Melvi Qureshi on 18-81-0764Xxfrbei (U) [Mass/Vol]Urine ketones measurement by test strip (mass/volume)NegativeOhio Valley Surgical HospitalKetones (U) [Mass/Vol]See commentNegativeOhio Valley Surgical HospitalComment on above:Unable to obtain accurate result due to color interference.Laboratory - Microbiology and Antimicrobial susceptibilityOrdered By: Melvi Qureshi on 59-94-5351Wazkjgsl identified Cx Nom (Bld)Enterococcus faecalisAbnoMercy Health Defiance HospitalBacteria identified Cx Nom (Bld)Pseudomonas aeruginosaAbnoMercy Health Defiance HospitalLactate [Moles/volume] in Serum or PlasmaOrdered By: Mario Jordan on 00-31-7229Dskkpmh [Moles/Vol]Lactate [Moles/volume] in Serum or PlasmaCritically high0.5-1.9 [facility] HospitalLactate [Moles/Vol]2.2 mmol/LCritically high 0.5-1.9[facility] HospitalComment on above:Critical Result : Called to and read back by: LEXIS DARNELL at: 07/13/2024 00:27:29 by:DHLactic Acid reference range has been updated to 0.5 1.9 mmol/L and the critical range of 2.0 or greater.Lactate [Moles/Vol]Lactate [Moles/volume] in Serum or Plasma Critically high0.5-1.9[facility] HospitalLactic Acidon 07-12-2024 Lactate [Moles/Vol]2.2 mmol/LOff scale high0.5-1.9[facility] Comment on above:Order Comment: 4P/33Result Comment: Critical Result : Called to and read back by: ALTON HYMAN at: 07/12/2024 19:37:40 by:PAB Lactic Acid reference range has been updated to 0.5 ? 1.9 mmol/L and the critical range of 2.0 or greater.PERFORMED BY:[facility]111C[facility] MERCY HOSPITALDARCI [place]AM[place], [place] [phone] MEDICAL DIRECTORJAJA WHITE M.D.Performed By: #### LACTIC ####[address] [place] [address] USALactate [Moles/Vol]2.3 mmol/LOff scale high 0.5-1.9The [facility] Health Physician GroupComment on above:Result Comment: Critical Result : Called to and read back by: DORA DARDEN at: 07/12/2024 16:01:14 by:PAB Lactic Acid reference range has been updated to 0.5 ? 1.9 mmol/L and the critical range of 2.0 or greater.PERFORMED BY:[address] [address] [address] GOLDSTEINDaneAMEENAMEDINA, [place] [phone] MEDICAL DIRECTORJAJA CATES M.D.Performed By: #### HS TROP, CBC, CUBLD, MG, LACTIC, CMP ####[address] [address] USALactic Acid Reflexon 00-31-8621Fgewdk Acid Reflex2.2 mmol/LOff scale high0.5-1.9The [facility] Physician GroupComment on above:Order Comment: CHANGE PER FRANCES PIRES KAHResult Comment: Critical Result : Called to and read back by: LEXIS DARNELL at: 07/13/2024 00:27:29 by:DH Lactic Acid reference range has been updated to 0.5 ? 1.9 mmol/L and the critical range of 2.0 orgreater.PERFORMED BY:[address] [address] [place], [place] [phone] MEDICAL DIRECTORJAJA CATES M.D. Performed By: #### LACTIC RFX ####[address] [address]FECNxbluw Acid Reflex3.0 mmol/LOff scale high0.5-1.9The [facility] Health Physician GroupComment on above:Result Comment: Critical Result : Called to and read back by: KATE DUBON at: 07/12/2024 21:43:37 by:PAB Lactic Acid reference range has been updated to 0.5 ? 1.9 mmol/L and the critical range of 2.0 or greater.PERFORMED BY:[address] [address] [place], [place] [phone] MEDICAL DIRECTORJAJA WHITE M.D.Performed By: #### LACTIC RFX ####[address] [address]AVVFbhhqehfw esterase [Presence] in Urine by Test stripOrdered By: Melvi Qureshi on 58-57-8780Raqxfllbm esterase Test strip Ql (U)Leukocyte esterase [Presence] in Urine by Test stripNegativeOhio Valley Surgical HospitalLeukocyte esterase Test strip Ql (U)See commentNegative [facility] HospitalComment on above:Unable to obtain accurate result due to color interference.Leukocytes [#/area] in Urine sediment by Microscopy high power fieldOrdered By: Melvi Qureshi on 64-12-3519VEY LM.HPF (Urine sed) [#/Area]Leukocytes [#/area] in Urine sediment by Microscopy high power fieldHigh0-4FCommunity Regional Medical CenterWBC LM.HPF (Urine sed) [#/Area]10-19 [HPF]High078 Weber StreetLeukocytes [#/volume] corrected for nucleated erythrocytes in Blood by Automated counOrdered By: Melvi Qureshi on 10-17-1278IKT corrected for nucl RBC Auto (Bld) [#/Vol]Leukocytes [#/volume] corrected for nucleated erythrocytes in Blood by Automated coun 4.1-10.5FCommunity Regional Medical CenterLymphocytes Auto (Bld) [#/Vol]Ordered By: Melvi Qureshi on 97-35-4213Xanoedwdxpj (Bld) [#/Vol]Lymphocytes [#/volume] in Blood by Automated countLow1.00-4.8[facility] Lymphocytes/100 WBC Auto (Bld)Ordered By: Melvi Qureshi on 07-12-2024 Lymphocytes/100 WBC (Bld)Lymphocytes/100 leukocytes in Blood by Automated count. [facility] HospitalLymphocytes/100 WBC Manual cnt (Bld)Ordered By: Mario Jordan on 11-97-7397Creiwgdcopm/100 WBC (Bld)Lymphocytes/100 leukocytes in Blood by Manual obgdqFnt78-51ToqnsvfwmOhio Valley Surgical HospitalLymphocytes/100 leukocytes in Blood by Manual countOrdered By: Mario Jordan on 07-12-2024 Lymphocytes/100 WBC (Bld)2 %Knx60-10GxnyqjyviOhio Valley Surgical HospitalComment on above:Order Comment: 4P/33Performed By: #### DIFF CBC ####[facility] [place] [address] [facility] Auto (RBC) [Entitic mass] Ordered By: Melvi Qureshi on 69-19-5874HJQ (RBC) [Entitic mass]MCH [Entitic mass] by Automated count27.5-35.2FSalem City HospitalHC Auto (RBC) [Mass/Vol]Ordered By: Melvi Qureshi on 31-82-8066MBTQ (RBC) [Mass/Vol]MCHC [Mass/volume] by Automated count32.5-35.6FSalem City HospitalV Auto (RBC) [Entitic vol]Ordered By: Melvi Qureshi on 98-81-1100RHO (RBC) [Entitic vol]MCV [Entitic volume] by Automated count83.5-101[facility] HospitalMagnesiumon 63-11-9335Ryzitctih [Mass/Vol]1.7 mg/dLLow1.9-2.7The [facility] Health Physician GroupComment on above:Result Comment: PERFORMED BY:[address] [place], [place] [phone] MEDICAL DIRECTORJAJA CATES M.D.Performed By: #### HS TROP, CBC, CUBLD, MG, LACTIC, CMP ####[facility] [place] [address] USAMagnesium [Mass/volume] in Serum or PlasmaOrdered By: Melvi Qureshi on 80-90-2253Yrpweufcl [Mass/Vol]Magnesium [Mass/volume] in Serum or PlasmaLow 1.9-2.7FCommunity Regional Medical CenterMonocyte distribution width [Entitic volume] in Blood by AutomatedOrdered By: Melvi Qureshi on 03-84-4989Qbmjwclh distribution width Auto (Bld) [Entitic vol]Monocyte distribution width [Entitic volume] in Blood by AutomatedHigh0.00-20.00[facility] Monocyte distribution width [Entitic volume] in Blood by AutomatedOrdered By: Mario Jordan on 33-13-5117Dzkpvtmj distribution width Auto (Bld) [Entitic vol] 29.58 %High0.00-20.00[facility] HospitalComment on above:For adults in ED, MDW > 20.0 may be associated with a higher risk of sepsis during the first 12 hrs of hospital admissionThe predictive value of MDW for identifying sepsis in patients with hematological abnormalities has not been establishedMonocytes Auto (Bld) [#/Vol]Ordered By: Melvi Qureshi on 07-12-2024 Monocytes (Bld) [#/Vol]Automated blood monocyte count0.0-0.8[facility] HospitalMonocytes/100 WBC Auto (Bld)Ordered By: Melvi Qureshi on 07-12-2024 Monocytes/100 WBC (Bld)Automated monocyte %.[facility] Monocytes/100 WBC Manual cnt (Bld)Ordered By: Mario Jordan on 07-12-2024 Monocytes/100 WBC (Bld)Monocytes/100 leukocytes in Blood by Manual countLow2 [facility] HospitalMonocytes/100 leukocytes in Blood by Manual countOrdered By: Mario Jordan on 17-08-6274Apmenbrfv/100 WBC (Bld)1 %Low2- [facility] HospitalComment on above:Order Comment: 4P/33Performed By: #### DIFF CBC ####[facility] [address] [place] [address] USANatriuretic peptide B [Mass/Vol]Ordered By: Melvi Qureshi on 64-90-0891Cdcmtuyausy peptide B (Bld) [Mass/Vol]BNP ser/plasHigh5-100[facility] HospitalNeutrophils Auto (Bld) [#/Vol]Ordered By: Melvi Qureshi on 18-24-8632Nsvphsjmmzj (Bld) [#/Vol]Neutrophils [#/volume] in Blood by Automated count1.8-7.7FCommunity Regional Medical CenterNeutrophils/100 WBC Auto (Bld) Ordered By: Melvi Qureshi on 62-38-6152Eaqaqoioqhc/100 WBC (Bld)Automated neutrophil %.[facility] HospitalNiite Test strip Ql (U)Ordered By: Melvi Qureshi on 48-49-7142Rrkybkc Ql (U)Nitrite [Presence] in Urine by Test stripNegativeOhio Valley Surgical HospitalNitrite Ql (U)See commentNegative [facility] HospitalComment on above:Unable to obtain accurate result due to color interference.No Panel InformationOrdered By: Melvi Qureshi on 85-10-4374Lnhpqyhxy ID (NA Multiplex Assay)[facility] AbnormalOhio Valley Surgical HospitalAbnormMercy Health Defiance HospitalEnterococcus faecalisAbnoMercy Health Defiance HospitalPseudomonas aeruginosaAbnoMercy Health Defiance Hospital42.119 mL/MinOhio Valley Surgical Hospital38.97[facility] HospitalNucleated erythrocytes [Presence] in Blood by Automated countOrdered By: Melvi Qureshi on 99-33-1202Qmseyxcit RBC Auto Ql (Bld)Nucleated erythrocytes [Presence] in Blood by Automated count0-0.5FCommunity Regional Medical CenterPlatelet mean volume Auto (Bld) [Entitic vol]Ordered By: Melvi Qureshi on 06-57-2008Jaeupxhs mean volume (Bld) [Entitic vol]Platelet mean volume [Entitic volume] in Blood by Automated count6.6-10.1FCommunity Regional Medical CenterPlatelets Auto (Bld) [#/Vol]Ordered By: Melvi Qureshi on 45-08-2401Ymeebosev (Bld) [#/Vol]Platelets [#/volume] in Blood by Automated djucq975-193AxcolbdasOhio Valley Surgical Hospital Potassium [Moles/volume] in Serum or PlasmaOrdered By: Melvi Qureshi on 07-12-2024 Potassium [Moles/Vol]Potassium [Moles/volume] in Serum or Plasma3.5-5.1FCommunity Regional Medical CenterProtein Test strip (U) [Mass/Vol]Ordered By: Melvi Qureshi on 03-39-2765Vyydqlu (U) [Mass/Vol]Protein [Mass/volume] in Urine by Test strip NegativeOhio Valley Surgical HospitalProtein (U) [Mass/Vol]See comment NegativeOhio Valley Surgical HospitalComment on above:Unable to obtain accurate result due to color interference.Protein [Mass/volume] in Serum or PlasmaOrdered By: Melvi Qureshi on 15-05-6188Zgtvcui [Mass/Vol]Protein [Mass/volume] in Serum or Plasma6.4-8.9[facility] HospitalRBC Auto (Bld) [#/Vol]Ordered By: Melvi Qureshi on 56-56-8363BEM (Bld) [#/Vol]Erythrocytes [#/volume] in Blood by Automated countLow3.90-5.60[facility] HospitalRespiratory specimen influenza A virus, influenza B virus, respiratory syncytical virOrdered By: Melvi Qureshi on 92-67-2427OHVS-CoV-2 (COVID-19) RNA SMITHA+probe Ql (Unsp spec)NormalOhio Valley Surgical HospitalComment on above: Performed By: #### COVID19 FLU RSV, CEPHEID NEG ####[facility] [address] [place] [address] USASegmented neutrophils/100 WBC Manual cnt (Bld)Ordered By: Mario Jordan on 92-73-4673Zohjjfxhc neutrophils/100 WBC (Bld)Manual blood segmented neutrophils/100 bczviposibXmei56-31DsdtsszitBlanchard Valley Health System Blanchard Valley Hospitalegmented neutrophils/100 leukocytes in Blood by Manual countOrdered By: Mario Jordan on 50-68-9571Pkiudrgpy neutrophils/100 WBC (Bld)93 %Gsyj98-69MwxjzpogtOhio Valley Surgical HospitalComment on above:Order Comment: 4P/33 Performed By: #### DIFF CBC ####[facility] [address] [place] [address] USASerum or plasma albumin/globulin mass ratioOrdered By: Melvi Qureshi on 40-83-7970Vlmrlfj/Globulin [Mass ratio]Serum or plasma albumin/globulin mass ratioBlanchard Valley Health System Blanchard Valley Hospitalerum or plasma anion gap determinationOrdered By: Melvi Qureshi on 51-03-8899Agjcd gap [Moles/Vol]Serum or plasma anion gap determination6.0-15.0[facility] Blanchard Valley Hospitalodium [Moles/volume] in Serum or PlasmaOrdered By: Melvi Qureshi on 84-07-0690Vhnxag [Moles/Vol]Sodium [Moles/volume] in Serum or HxgpidDpt821-833 [facility] Blanchard Valley Hospitalpecific gravity of Urine by Refractometry Ordered By: Melvi Qureshi on 60-71-2408Ffgvjdif gravity Refractometry (U) [Rel density]Specific gravity of Urine by Refractometry1.001-1.030[facility] Blanchard Valley Hospitalpecific gravity Refractometry (U) [Rel density]1.0201.001-1.030 [facility] Blanchard Valley Hospitaltomatocytes [Presence] in Blood by Light microscopyOrdered By: Mario Jordan on 12-45-9090Eewohcovcnqb LM Ql (Bld)Red blood cell stomatocyte detectionBlanchard Valley Health System Blanchard Valley Hospitaltomatocytes LM Ql (Bld)SlightOhio Valley Surgical HospitalTroponin I High Sensitivityon 41-24-5659Nggsjlwj I High Orvawlrzxda32Mbct0-37[facility] Comment on above:Result Comment: The Troponin units of report have been changed to meet the Chest Pain Accreditationrequirement, element EC5.M1l2. Troponin units are changed from pg/ml to ng/L. Also, the decimal is removed and results are in whole numbers.PERFORMED BY:[address] [place], [place] [phone] MEDICAL DIRECTORJAJA WHITE M.D.Performed By: #### HS TROP, CBC, CUBLD, MG, LACTIC, CMP ####[address] [address] [facility] Troponin I.cardiac [Mass/volume] in Serum or Plasma by Detection limit <= 0.01 ng/Ordered By: Melvi Qureshi on 18-11-8125Frdlgckn I.cardiac DL <= 0.01 ng/mL [Mass/Vol]Troponin I.cardiac [Mass/volume] in Serum or Plasma by Detection limit <= 0.01 ng/High0[facility] Surgical HospitalTroponin I.cardiac [Mass/volume] in Serum or Plasma by Detection limit <= 0.01 ng/mLOrdered By: Melvi Qureshi on 91-15-8937Aifpmwca I.cardiac DL <= 0.01 ng/mL [Mass/Vol]21 ng/L High0-[facility] HospitalComment on above:The Troponin units of report have been changed to meet the Chest Pain Accreditation requirement, jeremy ment EC5.M1l2. Troponin units are changed from pg/ml to ng/L. Also, the decimal is removed and results are in whole numbers.Urea nitrogen [Mass/volume] in Serum or PlasmaOrdered By: Melvi Qureshi on 38-62-9842Aqrc nitrogen [Mass/Vol]Urea nitrogen [Mass/volume] in Serum or PlasmaHigh7-25[facility] Surgical HospitalUrine Cultureon 67-22-3687Iwmdbojd identified Cx Nom (U)NormalThe Unc Health Physician GroupComment on above:Performed By: #### CUU ####[facility] [address] [place] [address] USAUrine appearance determinationOrdered By: Melvi Qureshi on 85-94-9696Pevfvnniix (U)Urine appearance AbnormalCleGrand Lake Joint Township District Memorial HospitalAppearance (U)TurbidCritically abnormalOhioHealth Berger HospitalComment on above:Order Comment: Name Collection Type:: Chou CatheterPerformed By: #### ADDONUAPLUS ####[facility] [address] [place] [address] USAUrine color determinationOrdered By: Melvi Qureshi on 31-67-6239Dlsvl (U)Urine color AbnormalYellowOhio Valley Surgical HospitalColor (U)RedCritically abnormal YellowOhio Valley Surgical HospitalComment on above:Order Comment: Name Collection Type:: Chou CatheterPerformed By: #### ADDONUAPLUS ####[facility] [address] [place] [address] USAUrine cultureOrdered By: Rowena Jordan on 46-58-3779Utjiktws identified Cx Nom (U)Pseudomonas aeruginosaAbHolzer Medical Center – JacksonBacteria identified Cx Nom (U)Enterococcus faecalisAbHolzer Medical Center – JacksonUrine culture AbnormalOhio Valley Surgical HospitalUrine cultureAbHolzer Medical Center – JacksonUrobilinogen Test strip (U) [Mass/Vol]Ordered By: Melvi Qureshi on 34-67-5329Kdlyqmomfuos (U) [Mass/Vol]Urobilinogen [Mass/volume] in Urine by Test stripNoMercy Health Defiance HospitalUrobilinogen (U) [Mass/Vol]See commentNoMercy Health Defiance HospitalComment on above:Unable to obtain accurate result due to color interference.Urology Office/Clinic Noteon [id number] Office/Clinic NoteUrology Office/Clinic Note Chief Complaint Cysto [...] Prior Dr Good pt. Pt resides at [facility] for rehab. Pt/s daughter is with him today. 1. Urinary retention (R33.9: Retention of urine, unspecified) Pt underwent lumbar decompression w/ fusion 02/21/24. Discharged to [facility] for rehab. [place] [facility] [place]03[place]15[place]24 for LIS secondary to acute urinary [...] No recent stone imaging. 4. 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 Elevated risk of periop complications 5. Hypospadias (Q54.9: Hypospadias, unspecified) See procedure section. (more content not included)...[facility]st HospitalComment on above:Result Comment: Electronically Signed By: Anup TIDWELL, Trisha Degroot\.br\Date and Time Signed: 07/12/24 09:19EDT\.br\Electronically Co-Signed By: Dulce Maria Brown\.br\Date and Time Co-Signed: 07/12/24 08:58 E DT\.br\Electronically Co-Signed By: Dulce Maria Brown P\.br\Date and Time Co- Signed: 07/12/24 09:02 EDT\.br\Electronically Co-Signed By: Dulce Maria Brown P\.br\Date and Time Co-Signed: 07/12/24 09:05 EDTWBC Auto (Bld) [#/Vol]Ordered By: Melvi Qureshi on 34-24-1721IMA (Bld) [#/Vol]Leukocytes [#/volume] in Blood by Automated count4.1-10.5FCommunity Regional Medical CenterX-ray reportOrdered By: Ortega Groves on 39-71-7816Riyhw reportOhio Valley Surgical HospitalXR chest 1V portableon 16-08-3805BW chest 1V portableNoCritical access hospital Physician GrouppH Test strip (U)Ordered By: Melvi Qureshi on 54-61-1048dB (U)pH of Urine by Test strip5.0-9.0Ohio Valley Surgical HospitalpH (U)See comment5.0-9.0 [facility] Surgical HospitalComment on above:Unable to obtain accurate result due to color interference.Provider Letteron [phone] Letter Randi Burris MD [address] [facility], [place] [address] Re: Tavo Jadynroel Date of Visit: 07/11/[address] Burris, Thank you for your referral to my office. Attached you will find the most recent office visit note.Please call if you have any questions or concerns. Sincerely, Tye Pompa MD [address], [address] [place] [address] The following document(s) were included in the letter: July 11, 2024 15:20:30 EDT - (07/11/2024) Telehealth Office Visit NoteNormal City HospitalBasophils Auto (Bld) [#/Vol]Ordered By: Sandip Bunting on 31-30-8017Xedodzlac (Bld) [#/Vol]Automated basophil count0.0-0.2 [facility] Surgical HospitalBasophils [#/volume] in Blood by Automated countOrdered By: Sandip Bunting on 00-72-3202Texlqyrem (Bld) [#/Vol]0.0 10*3/uL Normal0.0-0.2FCommunity Regional Medical CenterComment on above:Performed By: #### CBC, ESR, CRP ####[facility] [address] [place] [address] USABasophils/100 WBC Auto (Bld)Ordered By: Sandip Bunting on 07-09-2024 Basophils/100 WBC (Bld)Automated basophil %.[facility] Basophils/100 leukocytes in Blood by Automated countOrdered By: Sandip Bunting on 38-91-2353Earflvwvh/100 WBC (Bld)0.1 %Normal.[facility] Valley Surgical HospitalComment on above:Performed By: #### CBC, ESR, CRP ####[facility] [address] [place] [address] USAC reactive protein [Mass/volume] in Serum or PlasmaOrdered By: Sandip Bunting on 80-11-5190SRQ [Mass/Vol]C reactive protein [Mass/volume] in Serum or PlasmaHigh0.0-0.5 [facility] HospitalCRP [Mass/Vol]2.4 mg/dLHigh0.0-0.5FCommunity Regional Medical CenterC-Reactive Proteinon 54-87-7880D-Reactive Protein2.4 mg/dLHigh0.0-0.5The Unc Health Physician GroupComment on above:Result Comment: PERFORMED BY:[address] [place], [place] [phone] MEDICAL DIRECTORJAJA CATES M.D. Performed By: #### CBC, ESR, CRP ####[place] [id number] USAComplete Blood Count Auto Diffon 04-62-8080Drwx Corpuscular HGB Conc32.5 g/iNLvyiof23.5-35.6The [facility] Physician Forrest General HospitalComment on above:Performed By: #### CBC, ESR, CRP ####[place] [address] USANRBC%0.0 /100{WBC}Normal0-0.5The [facility] Physician Forrest General HospitalComment on above:Performed By: #### CBC, ESR, CRP ####[place] [id number] [place] Eosinophils Auto (Bld) [#/Vol]Ordered By: Sandip Bunting on 07-09-2024 Eosinophils (Bld) [#/Vol]Automated eosinophil count0.0-0.45Ohio Valley Surgical HospitalEosinophils [#/volume] in Blood by Automated countOrdered By: Sandip Bunting on 28-57-4404Lvebqxvwdjx (Bld) [#/Vol]0.0 10*3/uLNormal0.0-0.45 [facility] HospitalComment on above:Performed By: #### CBC, ESR, CRP ####[place] [address] [place] Eosinophils/100 WBC Auto (Bld)Ordered By: Sandip Bunting on 07-09-2024 Eosinophils/100 WBC (Bld)Automated eosinophil %.[facility] Surgical HospitalEosinophils/100 leukocytes in Blood by Automated countOrdered By: Sandip Bunting on 45-45-9191Efhfosephgm/100 WBC (Bld)0.4 %Normal.[facility] Surgical HospitalComment on above:Performed By: #### CBC, ESR, CRP ####[address] [address] [facility] CENTERErythrocyte Sedimentation Rateon 99-76-6208SZG (Bld) [Velocity]52 mm/hHigh0-The Unc Health Physician GroupComment on above:Result Comment: PERFORMED BY:[address] [place], [place] [phone] MEDICAL DIRECTORJAJA CATES M.D.Performed By: #### CBC, ESR, CRP ####[place] [id number] [facility] Erythrocyte distribution width Auto (RBC) [Ratio]Ordered By: Sandip Bunting on 90-79-6510Ngrqhsxtqrw distribution width (RBC) [Ratio]Erythrocyte distribution width [Ratio] by Automated ntgxnRvue07.0-14.[address] [place] [address] Erythrocyte distribution width [Ratio] by Automated countOrdered By: Sandip Bunting on 68-79-8687Isnwrswjjse distribution width (RBC) [Ratio]17.6 %High 12.0-14.[address] [place], [place] [address]Comment on above:Performed By: #### CBC, ESR, CRP ####[place] [id number] USAErythrocyte sedimentation rate by Photometric methodOrdered By: Sandip Bunting on 57-41-7668ZWU Photometric method (Bld) [Velocity]Erythrocyte sedimentation rate by Photometric methodBluefield Regional Medical CenterCleveland Clinic Union HospitalR Photometric method (Bld) [Velocity]52 mm/hrBluefield Regional Medical Center0-19Ohio Valley Surgical HospitalErythrocytes [#/volume] in Blood by Automated countOrdered By: Sandip Bunting on 42-89-4158XDH (Bld) [#/Vol]3.01 10*6/uLLow3.90-5.60[facility] Surgical HospitalComment on above:Performed By: #### CBC, ESR, CRP ####[place] [address] [place] [address] [place] Hematocrit Auto (Bld) [Volume fraction]Ordered By: Sandip Bunting on 07-09-2024 Hematocrit (Bld) [Volume fraction]Hematocrit [Volume Fraction] of Blood by Automated vzljiQry60.8-50.0[facility] Surgical HospitalHematocrit [Volume Fraction] of Blood by Automated countOrdered By: Sandip Bunting on 07-09-2024 Hematocrit (Bld) [Volume fraction]27.1 %Low38.8-50.0[facility] Surgical HospitalComment on above:Performed By: #### CBC, ESR, CRP ####[place] [address] [place] [id number] USAHemoglobin [Mass/volume] in BloodOrdered By: Sandip Bunting on 50-39-8657Rouzwrykqo (Bld) [Mass/Vol] Hemoglobin [Mass/volume] in ThbptZlh85.0-17.0[facility] Hemoglobin (Bld) [Mass/Vol]8.8 g/dLLow13.0-17.0[facility] Comment on above:Performed By: #### CBC, ESR, CRP ####[place] [address] USALeukocytes [#/volume] corrected for nucleated erythrocytes in Blood by Automated counOrdered By: Sandip Bunting on 52-38-9285UQF corrected for nucl RBC Auto (Bld) [#/Vol]Leukocytes [#/volume] corrected for nucleated erythrocytes in Blood by Automated coun4.1-10.5FCommunity Regional Medical CenterWBC corrected for nucl RBC Auto (Bld) [#/Vol]8.1 10*3/uL 4.1-10.5FCommunity Regional Medical CenterLeukocytes [#/volume] in Blood by Automated countOrdered By: Sandip Bunting on 31-87-3018AND (Bld) [#/Vol]8.1 10*3/uLNormal4.1-10.5FCommunity Regional Medical CenterComment on above:Performed By: #### CBC, ESR, CRP ####[address] [address] USALymphocytes Auto (Bld) [#/Vol]Ordered By: Sandip Bunting on 28-73-0773Zfknepafowj (Bld) [#/Vol]Lymphocytes [#/volume] in Blood by Automated count1.00-4.8[facility] Surgical HospitalLymphocytes [#/volume] in Blood by Automated countOrdered By: Sandip Bunting on 90-11-1879Bbzjuffdifd (Bld) [#/Vol]1.0 10*3/uLNormal1.00-4.8[facility] Surgical HospitalComment on above:Performed By: #### CBC, ESR, CRP ####[place] [address] USALymphocytes/100 WBC Auto (Bld)Ordered By: Sandip Bunting on 86-15-2727Lgdypcgabed/100 WBC (Bld)Lymphocytes/100 leukocytes in Blood by Automated count.[facility] Surgical HospitalLymphocytes/100 leukocytes in Blood by Automated countOrdered By: Sandip Bunting on 07-09-2024 Lymphocytes/100 WBC (Bld)12.5 %Normal.[facility] Surgical HospitalComment on above:Performed By: #### CBC, ESR, CRP ####[place] [address] [facility] Auto (RBC) [Entitic mass]Ordered By: Sandip Bunting on 08-43-5056SNJ (RBC) [Entitic mass]MCH [Entitic mass] by Automated count27.5-35.2FMercy Health Fairfield Hospital [Entitic mass] by Automated countOrdered By: Sandip Bunting on 21-72-3161ZPD (RBC) [Entitic mass] 29.3 gxNszqcn93.5-35.2FCommunity Regional Medical CenterComment on above: Performed By: #### CBC, ESR, CRP ####[place] [address] USAMCHC Auto (RBC) [Mass/Vol]Ordered By: Sandip Bunting on 73-00-1784KFYX (RBC) [Mass/Vol]MCHC [Mass/volume] by Automated count 32.5-35.6FSalem City HospitalHC (RBC) [Mass/Vol]32.5 g/dL 32.5-35.6FCommunity Regional Medical CenterMCV Auto (RBC) [Entitic vol]Ordered By: Sandip Bunting on 42-10-7409GYB (RBC) [Entitic vol]MCV [Entitic volume] by Automated count83.-101Protestant Deaconess HospitalV [Entitic volume] by Automated countOrdered By: Sandip Bunting on 63-72-6311EYI (RBC) [Entitic vol] 90.1 iEDtydop59.75 [address] StreetComment on above:Performed By: #### CBC, ESR, CRP ####[place] [address] USAMonocytes Auto (Bld) [#/Vol]Ordered By: Sandip Bunting on 74-52-2587Vthapezmm (Bld) [#/Vol]Automated blood monocyte count 0.0-0.8[facility] Surgical HospitalMonocytes [#/volume] in Blood by Automated countOrdered By: Sandip Bunting on 09-29-3028Jnkdtzbwx (Bld) [#/Vol] 0.6 10*3/uLNormal0.0-0.8[facility] Surgical HospitalComment on above: Performed By: #### CBC, ESR, CRP ####[place] [address] USAMonocytes/100 WBC Auto (Bld)Ordered By: Sandip Bunting on 72-51-9091Sdhmztrrw/100 WBC (Bld)Automated monocyte %.[facility] Surgical HospitalMonocytes/100 leukocytes in Blood by Automated count Ordered By: Sandip Bunting on 45-33-9670Gtbdwnhcu/100 WBC (Bld)7.3 %Normal. [facility] HospitalComment on above:Performed By: #### CBC, ESR, CRP ####[place] [address] [place] Neutrophils Auto (Bld) [#/Vol]Ordered By: Sandip Bunting on 07-09-2024 Neutrophils (Bld) [#/Vol]Neutrophils [#/volume] in Blood by Automated count 1.8-7.7FCommunity Regional Medical CenterNeutrophils [#/volume] in Blood by Automated countOrdered By: Sandip Bunting on 56-07-7438Narialpquyt (Bld) [#/Vol] 6.4 10*3/uLNormal1.8-7.7FCommunity Regional Medical CenterComment on above: Performed By: #### CBC, ESR, CRP ####[facility] [address] [place] [address] USANeutrophils/100 WBC Auto (Bld)Ordered By: Sandip Bunting on 19-51-3191Pgpyxypnffl/100 WBC (Bld)Automated neutrophil %.[facility] Surgical HospitalNeutrophils/100 leukocytes in Blood by Automated count Ordered By: Sandip Bunting on 49-06-5928Bjeajolefzp/100 WBC (Bld)79.7 %Normal. [facility] HospitalComment on above:Performed By: #### CBC, ESR, CRP ####[facility] [address] [place] [address] Nucleated erythrocytes [Presence] in Blood by Automated countOrdered By: Sandip Bunting on 28-76-7426Rzwrjgtyf RBC Auto Ql (Bld)Nucleated erythrocytes [Presence] in Blood by Automated count0-0.5FCommunity Regional Medical Center Nucleated RBC Auto Ql (Bld)0.0 /100{WBC}0-0.5FCommunity Regional Medical Center Platelet mean volume Auto (Bld) [Entitic vol]Ordered By: Sandip Bunting on 36-24-8274Gccavffl mean volume (Bld) [Entitic vol]Platelet mean volume [Entitic volume] in Blood by Automated count6.6-10.1FCommunity Regional Medical Center Platelet mean volume [Entitic volume] in Blood by Automated countOrdered By: Sandip Bunting on 89-30-7780Hqskzkrx mean volume (Bld) [Entitic vol]7.8 fLNormal 6.6-10.1FCommunity Regional Medical CenterComment on above:Performed By: #### CBC, ESR, CRP ####[facility] [address] [place] [address] USAPlatelets Auto (Bld) [#/Vol]Ordered By: Sandip Bunting on 07-09-2024 Platelets (Bld) [#/Vol]Platelets [#/volume] in Blood by Automated -174 [facility] HospitalPlatelets [#/volume] in Blood by Automated countOrdered By: Sandip Bunting on 15-67-7660Gvuususme (Bld) [#/Vol]234 10*3/uL Hwzxyh150-845UedduljecOhio Valley Surgical HospitalComment on above:Performed By: #### CBC, ESR, CRP ####[facility] [place] [address] USARBC Auto (Bld) [#/Vol]Ordered By: Sandip Bunting on 43-24-4049JBM (Bld) [#/Vol]Erythrocytes [#/volume] in Blood by Automated countLow3.90-5.60 [facility] HospitalWBC Auto (Bld) [#/Vol]Ordered By: Sandip Bunting on 24-15-4427DAJ (Bld) [#/Vol]Leukocytes [#/volume] in Blood by Automated count4.1-10.5FCommunity Regional Medical CenterBasophils Auto (Bld) [#/Vol]Ordered By: Sandip Bunting on 63-47-8431Iiwzcyyfi (Bld) [#/Vol]Automated basophil count0.0-0.2FCommunity Regional Medical CenterBasophils [#/volume] in Blood by Automated countOrdered By: Sandip Bunting on 43-80-3420Ukxvwlrxk (Bld) [#/Vol]0.1 10*3/uLNormal0.0-0.2FCommunity Regional Medical CenterComveterans affairs ann [facility] on above:Performed By: #### CBC, ESR, CRP ####[facility] [place] [address] USABasophils/100 WBC Auto (Bld)Ordered By: Sandip Bunting on 75-59-8649Vrrqzrgjq/100 WBC (Bld)Automated basophil %.[facility] HospitalBasophils/100 leukocytes in Blood by Automated count Ordered By: Sandip Aguirre on 15-52-3406Amirthqjm/100 WBC (Bld)1.3 %Normal. [facility] HospitalComment on above:Performed By: #### CBC, ESR, CRP ####[address] [address] USAC reactive protein [Mass/volume] in Serum or PlasmaOrdered By: Sandip Aguirre on 29-78-0713HWT [Mass/Vol]C reactive protein [Mass/volume] in Serum or PlasmaHigh 0.0-0.5FCommunity Regional Medical CenterCRP [Mass/Vol]8.0 mg/dLHigh0.0-0.5 [facility] HospitalC-Reactive Proteinon 46-10-2652X-Reactive Protein8.0 mg/dLHigh0.0-0.5The Unc Health Physician GroupComment on above:Result Comment: PERFORMED BY:[address] [place], [place] [phone] MEDICAL DIRECTORJAJA CATES M.D. Performed By: #### CBC, ESR, CRP ####[address] [address] USAComplete Blood Count Auto Diffon 54-68-1236Ulna Corpuscular HGB Conc32.9 g/dGNxtjlj04.5-35.6The Unc Health Physician GroupComment on above:Performed By: #### CBC, ESR, CRP ####[address] [address] USANRBC%0.0 /100{WBC}Normal0-0.5The Unc Health Physician GroupComment on above:Performed By: #### CBC, ESR, CRP ####[address] [address] [place] Eosinophils Auto (Bld) [#/Vol]Ordered By: Sandip Aguirre on 07-02-2024 Eosinophils (Bld) [#/Vol]Automated eosinophil count0.0-0.45FirBlanchard Valley Health System Blanchard Valley HospitalEosinophils [#/volume] in Blood by Automated countOrdered By: Sandip Bunting on 20-26-3290Vgfkarunuow (Bld) [#/Vol]0.4 10*3/uLNormal0.0-0.45 [facility] HospitalComment on above:Performed By: #### CBC, ESR, CRP ####[place] [address] [facility] Eosinophils/100 WBC Auto (Bld)Ordered By: Sandip Bunting on 07-02-2024 Eosinophils/100 WBC (Bld)Automated eosinophil %.[facility] HospitalEosinophils/100 leukocytes in Blood by Automated countOrdered By: Sandip Bunting on 24-22-8412Rwvyzyrzwsa/100 WBC (Bld)6.4 %Normal.[facility] HospitalComment on above:Performed By: #### CBC, ESR, CRP ####[place] [address] [facility] CENTERErythrocyte Sedimentation Rateon 46-33-6525AFY (Bld) [Velocity]95 mm/hHigh0-19The Unc Health Physician GroupComment on above:Result Comment: PERFORMED BY:[address] [place], [place] [phone] MEDICAL DIRECTORMOKAIT CATES M.D.Performed By: #### CBC, ESR, CRP ####[place] [address] [facility] Erythrocyte distribution width Auto (RBC) [Ratio]Ordered By: Sandip Bunting on 78-41-8253Bknkcsslkge distribution width (RBC) [Ratio]Erythrocyte distribution width [Ratio] by Automated crgovDeba09.0-14.8[facility] Erythrocyte distribution width [Ratio] by Automated countOrdered By: Sandip Bunting on 15-38-7232Xpxcaapuadj distribution width (RBC) [Ratio]17.1 %High 12.0-14.8[facility] Surgical HospitalComment on above:Performed By: #### CBC, ESR, CRP ####[place] [address] USAErythrocyte sedimentation rate by Photometric methodOrdered By: Sandip Aguirre on 10-96-0919VON Photometric method (Bld) [Velocity]Erythrocyte sedimentation rate by Photometric method46 Mitchell StreetESR Photometric method (Bld) [Velocity]95 mm/hr46 Mitchell StreetErythrocytes [#/volume] in Blood by Automated countOrdered By: Sandip Bunting on 11-05-7114PWA (Bld) [#/Vol]2.89 10*6/uLLow3.90-5.60[facility] HospitalComment on above:Performed By: #### CBC, ESR, CRP ####[facility] [address] [place] [address] [place] Hematocrit Auto (Bld) [Volume fraction]Ordered By: Sandip Bunting on 07-02-2024 Hematocrit (Bld) [Volume fraction]Hematocrit [Volume Fraction] of Blood by Automated lzxfmEtx11.8-50.0[facility] Surgical HospitalHematocrit [Volume Fraction] of Blood by Automated countOrdered By: Sandip Aguirre on 07-02-2024 Hematocrit (Bld) [Volume fraction]25.7 %Low38.8-50.0[facility] HospitalComment on above:Performed By: #### CBC, ESR, CRP ####[place] [address] USAHemoglobin [Mass/volume] in BloodOrdered By: Sandip Aguirre on 57-26-5054Uzpbxyohqt (Bld) [Mass/Vol] Hemoglobin [Mass/volume] in PklsmFiw70.0-17.0[facility] Hemoglobin (Bld) [Mass/Vol]8.5 g/dLLow13.0-17.0[facility] Comment on above:Performed By: #### CBC, ESR, CRP ####[place] [address] USALeukocytes [#/volume] corrected for nucleated erythrocytes in Blood by Automated counOrdered By: Sandip Aguirre on 87-11-0028SUA corrected for nucl RBC Auto (Bld) [#/Vol]Leukocytes [#/volume] corrected for nucleated erythrocytes in Blood by Automated coun4.1-10.5FCommunity Regional Medical CenterWBC corrected for nucl RBC Auto (Bld) [#/Vol]6.7 10*3/uL 4.1-10.5FCommunity Regional Medical CenterLeukocytes [#/volume] in Blood by Automated countOrdered By: Sandip Bunting on 12-96-1574KJP (Bld) [#/Vol]6.7 10*3/uLNormal4.1-10.5FCommunity Regional Medical CenterComment on above:Performed By: #### CBC, ESR, CRP ####[facility] [address] [place] [address] USALymphocytes Auto (Bld) [#/Vol]Ordered By: Sandip Aguirre on 48-18-3463Wtrsgorhtps (Bld) [#/Vol]Lymphocytes [#/volume] in Blood by Automated count1.00-4.8[facility] Surgical HospitalLymphocytes [#/volume] in Blood by Automated countOrdered By: Sandip Bunting on 83-54-2353Yebydzbsgzr (Bld) [#/Vol]1.4 10*3/uLNormal1.00-4.8[facility] HospitalComment on above:Performed By: #### CBC, ESR, CRP ####[address] [place] [address] USALymphocytes/100 WBC Auto (Bld)Ordered By: Sandip Aguirre on 75-82-2856Lhhwyugmgcv/100 WBC (Bld)Lymphocytes/100 leukocytes in Blood by Automated count.[facility] Surgical HospitalLymphocytes/100 leukocytes in Blood by Automated countOrdered By: Sandip Bunsantiago on 07-02-2024 Lymphocytes/100 WBC (Bld)21.2 %Normal.[facility] HospitalComment on above:Performed By: #### CBC, ESR, CRP ####[address] [place] [address] [facility] Auto (RBC) [Entitic mass]Ordered By: Sandip Bunting on 34-17-8383ATB (RBC) [Entitic mass]MCH [Entitic mass] by Automated count27.5-35.2FMercy Health Fairfield Hospital [Entitic mass] by Automated countOrdered By: Sandip Bunting on 71-02-2039KBR (RBC) [Entitic mass] 29.2 lyLzzlji53.5-35.2FCommunity Regional Medical CenterComment on above: Performed By: #### CBC, ESR, CRP ####[facility] [address] [place] [address] [facility] Auto (RBC) [Mass/Vol]Ordered By: Sandip Bunting on 04-15-3344FSOD (RBC) [Mass/Vol]MCHC [Mass/volume] by Automated count 32.5-35.6FSalem City HospitalHC (RBC) [Mass/Vol]32.9 g/dL 32.5-35.6FSalem City HospitalV Auto (RBC) [Entitic vol]Ordered By: Sandip Bunting on 44-48-7747PLG (RBC) [Entitic vol]MCV [Entitic volume] by Automated count83.5-101[facility]aconess HospitalV [Entitic volume] by Automated countOrdered By: Sandip Bunting on 59-25-0397BML (RBC) [Entitic vol] 88.9 jIAxuoet92.5-101[facility] HospitalComment on above:Performed By: #### CBC, ESR, CRP ####[place] [address] USAMonocytes Auto (Bld) [#/Vol]Ordered By: Sandip Bunting on 53-81-7873Bwivfztqs (Bld) [#/Vol]Automated blood monocyte count 0.0-0.8[facility] HospitalMonocytes [#/volume] in Blood by Automated countOrdered By: Sandip Bunting on 96-84-5490Uekepumay (Bld) [#/Vol] 0.3 10*3/uLNormal0.0-0.8[facility] HospitalComment on above: Performed By: #### CBC, ESR, CRP ####[facility] [address] [place] [address] USAMonocytes/100 WBC Auto (Bld)Ordered By: Sandip Bunting on 65-26-4549Mxxwnphkc/100 WBC (Bld)Automated monocyte %.[facility] HospitalMonocytes/100 leukocytes in Blood by Automated count Ordered By: Sandip Bunting on 95-06-7746Ejjwdtwia/100 WBC (Bld)4.8 %Normal. [facility] HospitalComment on above:Performed By: #### CBC, ESR, CRP ####[facility] [address] [place] [id number] [facility] Neutrophils Auto (Bld) [#/Vol]Ordered By: Sandip Bunting on 07-02-2024 Neutrophils (Bld) [#/Vol]Neutrophils [#/volume] in Blood by Automated count 1.8-7.7FCommunity Regional Medical CenterNeutrophils [#/volume] in Blood by Automated countOrdered By: Sandip Bunting on 19-19-2425Ouqmmxzngrk (Bld) [#/Vol] 4.4 10*3/uLNormal1.8-7.7FCommunity Regional Medical CenterComment on above: Performed By: #### CBC, ESR, CRP ####[facility] [address] [place] [address] USANeutrophils/100 WBC Auto (Bld)Ordered By: Sandip Bunting on 64-99-7980Ldrgbvtnbyt/100 WBC (Bld)Automated neutrophil %.[facility] HospitalNeutrophils/100 leukocytes in Blood by Automated count Ordered By: Sandip Bunting on 19-08-0712Xwxkawhomiy/100 WBC (Bld)66.3 %Normal. [facility] HospitalComment on above:Performed By: #### CBC, ESR, CRP ####[facility] [address] [place], [place] [address] [facility] Nucleated erythrocytes [Presence] in Blood by Automated countOrdered By: Sandip Bunting on 83-73-6869Phicfiozw RBC Auto Ql (Bld)Nucleated erythrocytes [Presence] in Blood by Automated count0-0.5FCommunity Regional Medical Center Nucleated RBC Auto Ql (Bld)0.0 /100{WBC}0-0.5FCommunity Regional Medical Center Platelet mean volume Auto (Bld) [Entitic vol]Ordered By: Sandip Bunting on 67-26-6273Aypwifhn mean volume (Bld) [Entitic vol]Platelet mean volume [Entitic volume] in Blood by Automated count6.6-10.1FCommunity Regional Medical Center Platelet mean volume [Entitic volume] in Blood by Automated countOrdered By: Sandip Bunting on 69-23-6321Knljdpae mean volume (Bld) [Entitic vol]7.7 fLNormal 6.6-10.1FCommunity Regional Medical CenterComment on above:Performed By: #### CBC, ESR, CRP ####[facility] [address] [place] [address] USAPlatelets Auto (Bld) [#/Vol]Ordered By: Sandip Bunting on 07-02-2024 Platelets (Bld) [#/Vol]Platelets [#/volume] in Blood by Automated -552 [facility] HospitalPlatelets [#/volume] in Blood by Automated countOrdered By: Sandip Bunting on 53-34-2739Tyeihythb (Bld) [#/Vol]180 10*3/uL Ujgsxn791-632QxqghcehvOhio Valley Surgical HospitalComment on above:Performed By: #### CBC, ESR, CRP ####[facility] [address] [place] [address] USARBC Auto (Bld) [#/Vol]Ordered By: Sandip Bunting on 77-30-1466OHQ (Bld) [#/Vol]Erythrocytes [#/volume] in Blood by Automated countLow3.90-5.60 [facility] HospitalWBC Auto (Bld) [#/Vol]Ordered By: Sandip Bunting on 37-22-5403ZIV (Bld) [#/Vol]Leukocytes [#/volume] in Blood by Automated count4.1-10.5FCommunity Regional Medical CenterProvider Letteron 33-83-7727Logfcfux Letter Tavo Mcintyre, [address], [address] [place] [address] Re: Tavo Slaterulett Date of Visit: 06/26/[address] Mcintyre, Thank you for your referral to my office. Attached you will find the most recent office visit note.Please call if you have any questions or concerns. Sincerely, Tye Pompa MD [address], [address] [place] [address] The following document(s) were included in the letter: June 26, 2024 15:49:54 EDT - (06/26/2024) Telehealth Office Visit NoteNormal City HospitalBasophils Auto (Bld) [#/Vol]Ordered By: Sandip Bunting on 73-18-7686Exqbcegty (Bld) [#/Vol]Automated basophil count0.0-0.2 [facility] HospitalBasophils [#/volume] in Blood by Automated countOrdered By: Sandip Bunting on 65-52-7267Snrexnttz (Bld) [#/Vol]0.1 10*3/uL Normal0.0-0.2FCommunity Regional Medical CenterComment on above:Performed By: #### ESR, CBC, CRP ####[facility] [address] [place] [address] USABasophils/100 WBC Auto (Bld)Ordered By: Sandip Mirzating on 06-25-2024 Basophils/100 WBC (Bld)Automated basophil %.[facility] Basophils/100 leukocytes in Blood by Automated countOrdered By: Sandip Bunting on 49-62-5482Fpbxeakcg/100 WBC (Bld)0.9 %Normal.[facility] HospitalComment on above:Performed By: #### ESR, CBC, CRP ####[facility] [address] [place] [address] USAC reactive protein [Mass/volume] in Serum or PlasmaOrdered By: Sandip Bunting on 56-65-5627ECF [Mass/Vol]C reactive protein [Mass/volume] in Serum or PlasmaHigh0.0-0.5 [facility] HospitalCRP [Mass/Vol]6.5 mg/dLHigh0.0-0.5FCommunity Regional Medical CenterC-Reactive Proteinon 64-30-5428A-Reactive Protein6.5 mg/dLHigh0.0-0.5The Unc Health Physician GroupComment on above:Result Comment: PERFORMED BY:[address] [place], [place] [phone] MEDICAL DIRECTORJAJA CATES M.D. Performed By: #### ESR, CBC, CRP ####[address] [address] USAComplete Blood Count Auto Diffon 45-88-4453Gtnz Corpuscular HGB Conc33.3 g/aJGfksse19.5-35.6The [facility]ician [facility] General HospitalComment on above:Performed By: #### ESR, CBC, CRP ####[address] [address] USANRBC%0.1 /100{WBC}Normal0-0.5The [facility] Physician Forrest General HospitalComment on above:Performed By: #### ESR, CBC, CRP ####[address] [address] [place] Eosinophils Auto (Bld) [#/Vol]Ordered By: Sandip Bunting on 06-25-2024 Eosinophils (Bld) [#/Vol]Automated eosinophil count0.0-0.45[facility] HospitalEosinophils [#/volume] in Blood by Automated countOrdered By: Sandip Bunting on 99-38-0877Dthodyyixmn (Bld) [#/Vol]0.3 10*3/uLNormal0.0-0.45 [facility] HospitalComment on above:Performed By: #### ESR, CBC, CRP ####[place] [id number] [place] Eosinophils/100 WBC Auto (Bld)Ordered By: Sandip Bunting on 06-25-2024 Eosinophils/100 WBC (Bld)Automated eosinophil %.[facility] HospitalEosinophils/100 leukocytes in Blood by Automated countOrdered By: Sandip Bunting on 85-10-4212Rgldjfgyvlh/100 WBC (Bld)4.4 %Normal.[facility] HospitalComment on above:Performed By: #### ESR, CBC, CRP ####[place] [address] [place] [address] USAErythrocyte Sedimentation Rateon 38-27-2888DCQ (Bld) [Velocity]79 mm/hHigh0-19The Unc Health Physician GroupComment on above:Result Comment: PERFORMED BY:[address] [place], [place] [phone] MEDICAL DIRECTORJAJA CATES M.D.Performed By: #### ESR, CBC, CRP ####[place] [address] [place] [address] [facility] Erythrocyte distribution width Auto (RBC) [Ratio]Ordered By: Sandip Bunting on 96-34-9688Ebmwrbbusxg distribution width (RBC) [Ratio]Erythrocyte distribution width [Ratio] by Automated zvxneXgpz04.0-14.8[facility] Erythrocyte distribution width [Ratio] by Automated countOrdered By: Sandip Bunting on 20-96-4435Pmhhrwtxvbe distribution width (RBC) [Ratio]16.7 %High 12.0-14.[address] [place], [place] [address]Comment on above:Performed By: #### ESR, CBC, CRP ####[place] [address] USAErythrocyte sedimentation rate by Photometric methodOrdered By: Sandip Bunting on 99-46-4789XBX Photometric method (Bld) [Velocity]Erythrocyte sedimentation rate by Photometric methodHigh0-19[facility] HospitalESR Photometric method (Bld) [Velocity]79 mm/hrBluefield Regional Medical Center0-19[facility] HospitalErythrocytes [#/volume] in Blood by Automated countOrdered By: Sandip Bunting on 69-53-9615GZR (Bld) [#/Vol]2.81 10*6/uLLow3.90-5.60[facility] HospitalComment on above:Performed By: #### ESR, CBC, CRP ####[address] [place] [address] [place] Hematocrit Auto (Bld) [Volume fraction]Ordered By: Sandip Bunting on 06-25-2024 Hematocrit (Bld) [Volume fraction]Hematocrit [Volume Fraction] of Blood by Automated emqisKrw69.8-50.0[facility] HospitalHematocrit [Volume Fraction] of Blood by Automated countOrdered By: Sandip Bunting on 06-25-2024 Hematocrit (Bld) [Volume fraction]24.4 %Low38.8-50.0[facility] HospitalComment on above:Performed By: #### ESR, CBC, CRP ####[place] [address] USAHemoglobin [Mass/volume] in BloodOrdered By: Sandip Bunting on 61-59-0490Rmpnabpkdg (Bld) [Mass/Vol] Hemoglobin [Mass/volume] in WpyozZsf64.0-17.0[facility] Hemoglobin (Bld) [Mass/Vol]8.1 g/dLLow13.0-17.0[facility] Comment on above:Performed By: #### ESR, CBC, CRP ####[place] [address] USALeukocytes [#/volume] corrected for nucleated erythrocytes in Blood by Automated counOrdered By: Sandip Bunting on 69-45-4225JZL corrected for nucl RBC Auto (Bld) [#/Vol]Leukocytes [#/volume] corrected for nucleated erythrocytes in Blood by Automated coun4.1-10.5FCommunity Regional Medical CenterWBC corrected for nucl RBC Auto (Bld) [#/Vol]8.0 10*3/uL 4.1-10.5FCommunity Regional Medical CenterLeukocytes [#/volume] in Blood by Automated countOrdered By: Sandip Bunting on 55-03-2362HQS (Bld) [#/Vol]8.0 10*3/uLNormal4.1-10.5FCommunity Regional Medical CenterComment on above:Performed By: #### ESR, CBC, CRP ####[place] [address] USALymphocytes Auto (Bld) [#/Vol]Ordered By: Sandip Bunting on 54-40-9898Xkunwvzgbiv (Bld) [#/Vol]Lymphocytes [#/volume] in Blood by Automated count1.00-4.8[facility] HospitalLymphocytes [#/volume] in Blood by Automated countOrdered By: Sandip Bunting on 54-95-6419Qashotyjzyy (Bld) [#/Vol]1.4 10*3/uLNormal1.00-4.8[facility] HospitalComment on above:Performed By: #### ESR, CBC, CRP ####[facility] [address] [place], [place] [address] USALymphocytes/100 WBC Auto (Bld)Ordered By: Sandip Bunting on 38-75-5458Wqwkxxfcdee/100 WBC (Bld)Lymphocytes/100 leukocytes in Blood by Automated count.[facility] HospitalLymphocytes/100 leukocytes in Blood by Automated countOrdered By: Sandip Bunting on 06-25-2024 Lymphocytes/100 WBC (Bld)17.6 %Normal.[facility] HospitalComment on above:Performed By: #### ESR, CBC, CRP ####[facility] [address] [place], [place] [address] [facility] Auto (RBC) [Entitic mass]Ordered By: Sandip Bunting on 72-86-3096EZL (RBC) [Entitic mass]MCH [Entitic mass] by Automated count27.5-35.2FMercy Health Fairfield Hospital [Entitic mass] by Automated countOrdered By: Sandip Bunting on 67-33-1945ZPX (RBC) [Entitic mass] 29.0 tjUztrlq18.5-35.2FCommunity Regional Medical CenterComment on above: Performed By: #### ESR, CBC, CRP ####[place] [address] [facility] Auto (RBC) [Mass/Vol]Ordered By: Sandip Bunting on 84-53-2454YITS (RBC) [Mass/Vol]MCHC [Mass/volume] by Automated count 32.5-35.6FCommunity Regional Medical CenterMCHC (RBC) [Mass/Vol]33.3 g/dL 32.5-35.6FCommunity Regional Medical CenterMCV Auto (RBC) [Entitic vol]Ordered By: Sandip Bunting on 57-23-7442KYD (RBC) [Entitic vol]MCV [Entitic volume] by Automated count83.5-101[facility] HospitalMCV [Entitic volume] by Automated countOrdered By: Sandip Bunting on 96-90-5532CHO (RBC) [Entitic vol] 87.1 xBUiqzhs49.5-101[facility] HospitalComment on above:Performed By: #### ESR, CBC, CRP ####[facility] [address] [place] [address] USAMonocytes Auto (Bld) [#/Vol]Ordered By: Sandip Bunting on 83-22-0777Cmexoabqz (Bld) [#/Vol]Automated blood monocyte count 0.0-0.8[facility] HospitalMonocytes [#/volume] in Blood by Automated countOrdered By: Sandip Bunting on 40-33-5132Bkjviivnn (Bld) [#/Vol] 0.6 10*3/uLNormal0.0-0.8[facility] HospitalComment on above: Performed By: #### ESR, CBC, CRP ####[facility] [address] [place], [place] [address] USAMonocytes/100 WBC Auto (Bld)Ordered By: Sandip Bunting on 38-89-1798Rtewwnrid/100 WBC (Bld)Automated monocyte %.[facility] HospitalMonocytes/100 leukocytes in Blood by Automated count Ordered By: Sandip Bunting on 23-07-3458Rwheoydqa/100 WBC (Bld)7.7 %Normal. [facility] HospitalComment on above:Performed By: #### ESR, CBC, CRP ####[address] [address] [place] Neutrophils Auto (Bld) [#/Vol]Ordered By: Sandip Bunting on 06-25-2024 Neutrophils (Bld) [#/Vol]Neutrophils [#/volume] in Blood by Automated count 1.8-7.7FCommunity Regional Medical CenterNeutrophils [#/volume] in Blood by Automated countOrdered By: Snadip Bunsantiago on 00-44-2310Uysfzpxqzcu (Bld) [#/Vol] 5.5 10*3/uLNormal1.8-7.7FCommunity Regional Medical CenterComment on above: Performed By: #### ESR, CBC, CRP ####[facility] [address] [place] [address] USANeutrophils/100 WBC Auto (Bld)Ordered By: Sandip Aguirre on 96-37-2701Zgzozrzxwwh/100 WBC (Bld)Automated neutrophil %.[facility] HospitalNeutrophils/100 leukocytes in Blood by Automated count Ordered By: Sandip Aguirre on 44-19-8344Weyguaqqxxu/100 WBC (Bld)69.4 %Normal. [facility] HospitalComment on above:Performed By: #### ESR, CBC, CRP ####[facility] [address] [place] [address] [facility] Nucleated erythrocytes [Presence] in Blood by Automated countOrdered By: Sandip Aguirre on 35-41-4354Lwzurmtte RBC Auto Ql (Bld)Nucleated erythrocytes [Presence] in Blood by Automated count0-0.5FCommunity Regional Medical Center Nucleated RBC Auto Ql (Bld)0.1 /100{WBC}0-0.5FCommunity Regional Medical Center Platelet mean volume Auto (Bld) [Entitic vol]Ordered By: Sandip Bunting on 72-04-5087Vrexpghj mean volume (Bld) [Entitic vol]Platelet mean volume [Entitic volume] in Blood by Automated count6.6-10.1FCommunity Regional Medical Center Platelet mean volume [Entitic volume] in Blood by Automated countOrdered By: Sandip Bunting on 05-16-3812Udrmkwck mean volume (Bld) [Entitic vol]7.5 fLNormal 6.6-10.1FCommunity Regional Medical CenterComment on above:Performed By: #### ESR, CBC, CRP ####[facility] [place] [address] USAPlatelets Auto (Bld) [#/Vol]Ordered By: Sandip Bunting on 06-25-2024 Platelets (Bld) [#/Vol]Platelets [#/volume] in Blood by Automated bapzi446-713 [facility] HospitalPlatelets [#/volume] in Blood by Automated countOrdered By: Sandip Bunting on 34-24-5001Zvjzwhazx (Bld) [#/Vol]234 10*3/uL Aegwjd907-496KpgmqmfwqOhio Valley Surgical HospitalComment on above:Performed By: #### ESR, CBC, CRP ####[place] [address] [place] [address] USARBC Auto (Bld) [#/Vol]Ordered By: Sandip Bunting on 81-14-4551TZC (Bld) [#/Vol]Erythrocytes [#/volume] in Blood by Automated countLow3.90-5.60 [facility] HospitalWBC Auto (Bld) [#/Vol]Ordered By: Sandip Bunting on 36-96-7113KJQ (Bld) [#/Vol]Leukocytes [#/volume] in Blood by Automated count4.1-10.5FCommunity Regional Medical CenterBadeaconess health system Metabolic Panelon 92-60-7720Yunlurywz GFR25.145 mL/MinNoCritical access hospital Physician GroupComment on above:Performed By: #### CBC, CRP, BMP, ESR ####[place] [address] [place] [address] USABasophils Auto (Bld) [#/Vol]Ordered By: Sandip Bunting on 15-75-5729Etyiepfml (Bld) [#/Vol]Automated basophil count 0.0-0.2FCommunity Regional Medical CenterBasophils [#/volume] in Blood by Automated countOrdered By: Sandip Bunting on 45-60-6137Ekmkrwwbg (Bld) [#/Vol] 0.1 10*3/uLNormal0.0-0.2FCommunity Regional Medical CenterComment on above: Performed By: #### CBC, CRP, BMP, ESR ####[address] [address] USABasophils/100 WBC Auto (Bld)Ordered By: Sandip Aguirre on 01-77-3125Fsgwmzlpg/100 WBC (Bld)Automated basophil %.[facility] HospitalBasophils/100 leukocytes in Blood by Automated count Ordered By: Sandip Aguirre on 62-65-2541Fuiounfou/100 WBC (Bld)0.6 %Normal. [facility] HospitalComment on above:Performed By: #### CBC, CRP, BMP, ESR ####[address] [address] USAC reactive protein [Mass/volume] in Serum or PlasmaOrdered By: Sandip Aguirre on 32-53-7710UQM [Mass/Vol]C reactive protein [Mass/volume] in Serum or Plasma High0.0-0.5FCommunity Regional Medical CenterCRP [Mass/Vol]19.0 mg/dLHigh0.0-0.5 [facility] HospitalC-Reactive Proteinon 24-69-6517M-Reactive Dodmzhh82.0 mg/dLHigh0.0-0.5The Unc Health Physician GroupComment on above:Result Comment: PERFORMED BY:[place] [address] [place], [place] [phone] MEDICAL DIRECTORJAJA CATES M.D. Performed By: #### CBC, CRP, BMP, ESR ####[address] [address] USACalcium [Mass/volume] in Serum or Plasma Ordered By: Tamar Cunha on 94-26-2233Zdqhxzd [Mass/Vol]Calcium [Mass/volume] in Serum or Plasma8.6-10.3FCommunity Regional Medical CenterCalcium [Mass/Vol] 8.6 mg/dLNormal8.6-10.3FCommunity Regional Medical CenterComment on above: Performed By: #### CBC, CRP, BMP, ESR ####[address] [address] USACarbon dioxide, total [Moles/volume] in Serum or PlasmaOrdered By: Tamar Cunha on 88-48-5281DS2 [Moles/Vol]Carbon dioxide, total [Moles/volume] in Serum or Rxwqcn08.0-31.0[facility] HospitalCO2 [Moles/Vol]22.2 mmol/IFvafuu67.0-31.0[facility] Comment on above:Performed By: #### CBC, CRP, BMP, ESR ####[place] [address] [place] [address] USAChloride [Moles/volume] in Serum or PlasmaOrdered By: Tamar Cunha on 39-16-5880Vmvrzqrs [Moles/Vol] Chloride [Moles/volume] in Serum or OmendsRzy80-338FuddoqkhsOhio Valley Surgical HospitalChloride [Moles/Vol]97 mmol/NOwf72-790VgpgbmtsjOhio Valley Surgical Hospital Comment on above:Performed By: #### CBC, CRP, BMP, ESR ####[address] [address] USAComplete Blood Count Auto Diff on 13-42-7548Ghsn Corpuscular HGB Conc32.8 g/vGCxsbag31.5-35.6The Unc Health Physician GroupComment on above:Performed By: #### CBC, CRP, BMP, ESR ####[address] [address] USANRBC% 0.0 /100{WBC}Normal0-0.5The [facility] Physician Forrest General HospitalComment on above:Performed By: #### CBC, CRP, BMP, ESR ####[place] [address] USACreatinine [Mass/volume] in Serum or PlasmaOrdered By: Tamar Cunha on 91-88-5224Zxdnupyzau [Mass/Vol]Creatinine [Mass/volume] in Serum or PlasmaHigh0.70-1.30[facility] HospitalCreatinine [Mass/Vol]2.49 mg/dLHigh0.70-1.30[facility] HospitalComment on above:Performed By: #### CBC, CRP, BMP, ESR ####[address] [place] [address] USAEosinophils Auto (Bld) [#/Vol]Ordered By: Sandip Bunting on 96-05-1102Yhvgmclrngt (Bld) [#/Vol]Automated eosinophil count0.0-0.45[facility] HospitalEosinophils [#/volume] in Blood by Automated countOrdered By: Sandip Bunting on 30-35-6958Fhqbcblwwed (Bld) [#/Vol]0.2 10*3/uLNormal0.0-0.45[facility] HospitalComment on above:Performed By: #### CBC, CRP, BMP, ESR ####[address] [address] USAEosinophils/100 WBC Auto (Bld)Ordered By: Sandip Bunting on 76-50-8231Mtnozmrkzat/100 WBC (Bld)Automated eosinophil %. [facility] HospitalEosinophils/100 leukocytes in Blood by Automated countOrdered By: Sandip Bunting on 46-86-5371Uhtdpirsnzw/100 WBC (Bld) 1.9 %Normal.[facility] HospitalComment on above:Performed By: #### CBC, CRP, BMP, ESR ####[address] [address] USAErythrocyte Sedimentation Rateon 93-68-4806AJH (Bld) [Velocity]105 mm/hHigh0-19The Unc Health Physician GroupComment on above:Result Comment: PERFORMED BY:[address] [place], [place] [phone] MEDICAL DIRECTORJAJA CATES M.D. Performed By: #### CBC, CRP, BMP, ESR ####[address] [address] USAErythrocyte distribution width Auto (RBC) [Ratio]Ordered By: Sandip Bunting on 83-69-1089Umbtklxtvfe distribution width (RBC) [Ratio]Erythrocyte distribution width [Ratio] by Automated countHigh 12.0-14.8[facility] HospitalErythrocyte distribution width [Ratio] by Automated countOrdered By: Sandip Aguirre on 59-31-2640Orstzpijjau distribution width (RBC) [Ratio]16.6 %High12.0-14.8[facility] HospitalComment on above:Performed By: #### CBC, CRP, BMP, ESR ####[facility] [address] [place] [address] USAErythrocyte sedimentation rate by Photometric methodOrdered By: Sandip Aguirre on 06-18-2024 ESR Photometric method (Bld) [Velocity]Erythrocyte sedimentation rate by Photometric methodBluefield Regional Medical Center019[facility] HospitalESR Photometric method (Bld) [Velocity]105 mm/hrBluefield Regional Medical Center019[facility] Erythrocytes [#/volume] in Blood by Automated countOrdered By: Sandip Aguirre on 22-67-4213SRA (Bld) [#/Vol]3.31 10*6/uLLow3.90-5.60[facility] HospitalComment on above:Performed By: #### CBC, CRP, BMP, ESR ####[facility] [address] [place] [address] USAGlucose [Mass/volume] in Serum or PlasmaOrdered By: Tamar Cunha on 20-94-3913Zpselzy [Mass/Vol] Glucose [Mass/volume] in Serum or XzerltOwln54-721ZtiuwlfgjOhio Valley Surgical HospitalComment on above:ADA recommended reference rangeRandom Glucose Reference Range is dependent on time and content of last meal. Glucose of more than 200 mg/dL in a nonstressed, ambulatory subject supports the diagnosisof Diabetes Mellitus.Glucose [Mass/Vol]105 mg/gPQpmm88-846LwevbqtpzOhio Valley Surgical Hospital Comment on above:ADA recommended reference rangeRandom [...] rangePerformed By: #### CBC, CRP, BMP, ESR ####[facility] [address] [place] [address] USAHematocrit Auto (Bld) [Volume fraction]Ordered By: Sandip Bunting on 84-98-0393Flsacxqwdp (Bld) [Volume fraction]Hematocrit [Volume Fraction] of Blood by Automated ykctbYdk46.8-50.0 [facility] HospitalHematocrit [Volume Fraction] of Blood by Automated countOrdered By: Sandip Bunting on 28-57-0434Hrnzdlbisp (Bld) [Volume fraction]29.4 %Low38.8-50.0[facility] HospitalComment on above: Performed By: #### CBC, CRP, BMP, ESR ####[place] [address] [place] [address] USAHemoglobin [Mass/volume] in BloodOrdered By: Sandip Bunting on 29-17-0714Gshiyxmkjx (Bld) [Mass/Vol]Hemoglobin [Mass/volume] in AdlnaPlx44.0-17.0[facility] HospitalHemoglobin (Bld) [Mass/Vol] 9.6 g/dLLow13.0-17.0[facility] HospitalComment on above:Performed By: #### CBC, CRP, BMP, ESR ####[place] [address] USALeukocytes [#/volume] corrected for nucleated erythrocytes in Blood by Automated counOrdered By: Sandip Bunting on 06-18-2024 WBC corrected for nucl RBC Auto (Bld) [#/Vol]Leukocytes [#/volume] corrected for nucleated erythrocytes in Blood by Automated counHigh4.1-10.5FCommunity Regional Medical CenterWBC corrected for nucl RBC Auto (Bld) [#/Vol]10.9 10*3/uLHigh 4.1-10.5FCommunity Regional Medical CenterLeukocytes [#/volume] in Blood by Automated countOrdered By: Sandip Bunting on 28-76-3789ZVI (Bld) [#/Vol]10.9 10*3/uLHigh4.1-10.5FCommunity Regional Medical CenterComment on above:Performed By: #### CBC, CRP, BMP, ESR ####[facility] [place] [address] USALymphocytes Auto (Bld) [#/Vol]Ordered By: Sandip Bunting on 85-53-7182Jkktavepgcq (Bld) [#/Vol]Lymphocytes [#/volume] in Blood by Automated count1.00-4.8[facility] Surgical HospitalLymphocytes [#/volume] in Blood by Automated countOrdered By: Sandip Bunting on 23-75-2037Qusnqsxhdpv (Bld) [#/Vol]1.2 10*3/uLNormal1.00-4.8[facility] HospitalComment on above:Performed By: #### CBC, CRP, BMP, ESR ####[place] [address] USALymphocytes/100 WBC Auto (Bld)Ordered By: Sandip Bunting on 31-11-1649Knszikswtku/100 WBC (Bld)Lymphocytes/100 leukocytes in Blood by Automated count.[facility] Lymphocytes/100 leukocytes in Blood by Automated countOrdered By: Sandip Bunting on 96-00-4246Jlrohshnnyk/100 WBC (Bld)10.9 %Normal.[facility] HospitalComment on above:Performed By: #### CBC, CRP, BMP, ESR ####[place] [address] [facility] Auto (RBC) [Entitic mass]Ordered By: Sandip Bunting on 57-75-9267VPJ (RBC) [Entitic mass] MCH [Entitic mass] by Automated count27.5-35.2FCommunity Regional Medical Center MCH [Entitic mass] by Automated countOrdered By: Sandip Bunting on 79-91-3684NBS (RBC) [Entitic mass]29.1 zlFrgtok38.5-35.2FCommunity Regional Medical Center Comment on above:Performed By: #### CBC, CRP, BMP, ESR ####[place] [address] [facility] Auto (RBC) [Mass/Vol] Ordered By: Sandip Bunting on 02-50-5973PTDC (RBC) [Mass/Vol]MCHC [Mass/volume] by Automated count32.5-35.6FSalem City HospitalHC (RBC) [Mass/Vol]32.8 g/dL32.5-35.6FCommunity Regional Medical CenterMCV Auto (RBC) [Entitic vol]Ordered By: Sandip Bunting on 62-77-5434EDL (RBC) [Entitic vol]MCV [Entitic volume] by Automated count83.5-101Pro[facility]aconess HospitalV [Entitic volume] by Automated countOrdered By: Sandip Bunting on 69-32-0068MJC (RBC) [Entitic vol]88.[address] [place], [place] [address]Comment on above:Performed By: #### CBC, CRP, BMP, ESR ####[facility] [address] [place] [address] USAMonocytes Auto (Bld) [#/Vol]Ordered By: Sandip Bunting on 99-34-9189Nhnspmegb (Bld) [#/Vol]Automated blood monocyte count0.0-0.8[facility] HospitalMonocytes [#/volume] in Blood by Automated countOrdered By: Sandip Bunting on 10-70-3350Geaeqvsek (Bld) [#/Vol] 0.8 10*3/uLNormal0.0-0.8[facility] HospitalComment on above: Performed By: #### CBC, CRP, BMP, ESR ####[place] [address] USAMonocytes/100 WBC Auto (Bld)Ordered By: Sandip Bunting on 64-34-2407Qbceebzgm/100 WBC (Bld)Automated monocyte %.[facility] HospitalMonocytes/100 leukocytes in Blood by Automated count Ordered By: Sandip Bunting on 43-79-1082Wtkhkkzpt/100 WBC (Bld)7.0 %Normal. [facility] HospitalComment on above:Performed By: #### CBC, CRP, BMP, ESR ####[place] [address] USANeutrophils Auto (Bld) [#/Vol]Ordered By: Sandip Bunting on 06-18-2024 Neutrophils (Bld) [#/Vol]Neutrophils [#/volume] in Blood by Automated countHigh 1.8-7.7FCommunity Regional Medical CenterNeutrophils [#/volume] in Blood by Automated countOrdered By: Sandip Bunting on 00-57-3648Icoqjuxrooj (Bld) [#/Vol] 8.7 10*3/uLHigh1.8-7.7FCommunity Regional Medical CenterComment on above: Performed By: #### CBC, CRP, BMP, ESR ####[facility] [address] [place] [address] USANeutrophils/100 WBC Auto (Bld)Ordered By: Sandip Bunting on 71-52-1952Tjansmlwzge/100 WBC (Bld)Automated neutrophil %. [facility] HospitalNeutrophils/100 leukocytes in Blood by Automated countOrdered By: Sandip Bunting on 86-33-5560Gmngbhujrsp/100 WBC (Bld) 79.6 %Normal.[facility] HospitalComment on above:Performed By: #### CBC, CRP, BMP, ESR ####[facility] [facility] [id number] [place] [address] USANo Panel InformationOrdered By: Tamar Cunha on 08-47-3764Pqwajtqou GFR (CKD-EPI)25.145 mL/[facility] Creatinine Clearance (ChemN/[facility]25.145 mL/[facility] Nucleated erythrocytes [Presence] in Blood by Automated countOrdered By: Sandip Bunting on 48-99-0887Fnqzhdamr RBC Auto Ql (Bld)Nucleated erythrocytes [Presence] in Blood by Automated count0-0.5FCommunity Regional Medical Center Nucleated RBC Auto Ql (Bld)0.0 /100{WBC}0-0.5FCommunity Regional Medical Center Platelet mean volume Auto (Bld) [Entitic vol]Ordered By: Sandip Bunting on 89-50-3123Xdsqngrs mean volume (Bld) [Entitic vol]Platelet mean volume [Entitic volume] in Blood by Automated count6.6-10.1FCommunity Regional Medical Center Platelet mean volume [Entitic volume] in Blood by Automated countOrdered By: Sandip Bunting on 02-66-6620Anzzvmig mean volume (Bld) [Entitic vol]7.8 fLNormal 6.6-10.1FCommunity Regional Medical CenterComment on above:Performed By: #### CBC, CRP, BMP, ESR ####[facility] [address] [place] [address] USAPlatelets Auto (Bld) [#/Vol]Ordered By: Sandip Bunting on 06-18-2024 Platelets (Bld) [#/Vol]Platelets [#/volume] in Blood by Automated exvwn156-786 [facility] HospitalPlatelets [#/volume] in Blood by Automated countOrdered By: Sandip Bunting on 55-75-7379Rsqxjiwvt (Bld) [#/Vol]292 10*3/uL Ifmbeh593-671JiupubyecOhio Valley Surgical HospitalComment on above:Performed By: #### CBC, CRP, BMP, ESR ####[facility] [address] [place] [address] USAPotassium [Moles/volume] in Serum or PlasmaOrdered By: Tamar Cunha on 45-20-9059Dezdkjbsm [Moles/Vol]Potassium [Moles/volume] in Serum or Plasma3.5-5.1FCommunity Regional Medical CenterPotassium [Moles/Vol] 4.7 mmol/LNormal3.5-5.1FCommunity Regional Medical CenterComment on above: Performed By: #### CBC, CRP, BMP, ESR ####[facility] [address] [place] [address] USARBC Auto (Bld) [#/Vol]Ordered By: Sandip Bunsantiago on 45-45-0621DLR (Bld) [#/Vol]Erythrocytes [#/volume] in Blood by Automated countLow3.90-5.60[facility]ard Valley Hospitalerum or plasma anion gap determinationOrdered By: Tamar Cunha on 44-68-8593Bvvel gap [Moles/Vol]Serum or plasma anion gap determinationHigh6.0-15.0[facility] HospitalAnion gap [Moles/Vol]16.5 mmol/LHigh6.0-15.0[facility] HospitalComment on above:Performed By: #### CBC, CRP, BMP, ESR ####[facility] [place] [address] USASodium [Moles/volume] in Serum or PlasmaOrdered By: Tamar Cunha on 45-84-6131Heytqc [Moles/Vol]Sodium [Moles/volume] in Serum or NfpwcpAsh732-171KjpxkvkauBlanchard Valley Health System Blanchard Valley Hospitalodium [Moles/Vol]131 mmol/SDbs435-992FonhkxwkaOhio Valley Surgical HospitalComment on above:Performed By: #### CBC, CRP, BMP, ESR ####[facility] [address] [place] [address] USAUrea nitrogen [Mass/volume] in Serum or PlasmaOrdered By: Tamar Cunha on 25-68-3910Nnkv nitrogen [Mass/Vol]Urea nitrogen [Mass/volume] in Serum or PlasmaHigh7-25 [facility] HospitalUrea nitrogen [Mass/Vol]42 mg/dLHigh7-25 [facility] HospitalComment on above:Performed By: #### CBC, CRP, BMP, ESR ####[facility] [address] [place] [address] USAWBC Auto (Bld) [#/Vol]Ordered By: Sandip Bunting on 91-37-2433CLE (Bld) [#/Vol]Leukocytes [#/volume] in Blood by Automated countHigh4.1-10.5FCommunity Regional Medical CenterBasophils Auto (Bld) [#/Vol]Ordered By: Sandip Bunting on 94-49-8941Fmmpdnnji (Bld) [#/Vol]Automated basophil count0.0-0.2FCommunity Regional Medical CenterBasophils/100 WBC Auto (Bld)Ordered By: Sandip Bunting on 34-32-8822Xybuaxlmy/100 WBC (Bld)Automated basophil %.[facility] HospitalComplete Blood Count Auto Diffon 29-79-4401Blsrtwaqy (Bld) [#/Vol] 0.0 10*3/uLNormal0.0-0.2The Unc Health Physician GroupComment on above:Result Comment: PERFORMED BY:[address] [place], [place] [phone] MEDICAL DIRECTORJAJA CATES M.D. Performed By: #### CBC ####[place] [address] USABasophils/100 WBC (Bld)0.5 %Normal.The Unc Health Physician GroupComment on above:Performed By: #### CBC ####[place] [address] USAEosinophils (Bld) [#/Vol]0.2 10*3/uLNormal0.0-0.45The Unc Health Physician GroupComment on above:Performed By: #### CBC ####[place] [address] USAEosinophils/100 WBC (Bld)2.2 %Normal.The Unc Health Physician GroupComment on above:Performed By: #### CBC ####[place] [address] USAErythrocyte distribution width (RBC) [Ratio]16.6 % High12.0-14.8The Unc Health Physician GroupComment on above:Performed By: #### CBC ####[place] [address] [place] Hematocrit (Bld) [Volume fraction]29.1 %Low38.8-50.0The Unc Health Physician GroupComment on above:Performed By: #### CBC ####[place] [address] USAHemoglobin (Bld) [Mass/Vol]9.7 g/dLLow 13.0-17.0The Unc Health Physician GroupComment on above:Performed By: #### CBC ####[place] [address] [place] Lymphocytes (Bld) [#/Vol]0.8 10*3/uLLow1.00-4.8The [facility] Comment on above:Performed By: #### CBC ####[place] [address] USALymphocytes/100 WBC (Bld)9.5 %Normal.The Unc Health Physician GroupComment on above:Performed By: #### CBC ####[address]H (RBC) [Entitic mass]29.8 yhXmmmcl12.5-35.2The Unc Health Physician GroupComment on above: Performed By: #### CBC ####[address]V (RBC) [Entitic vol]89.7 eVNlcxxj97.5-101The Unc Health Physician GroupComment on above:Performed By: #### CBC ####[place] [address] USAMean Corpuscular HGB Conc33.2 g/hNIikwlw88.5-35.6The Unc Health Physician GroupComment on above: Performed By: #### CBC ####[place] [address] USAMonocytes (Bld) [#/Vol]0.6 10*3/uLNormal0.0-0.8The Unc Health Physician GroupComment on above:Performed By: #### CBC ####[place] [address] USAMonocytes/100 WBC (Bld)7.4 %Normal.The Unc Health Physician GroupComment on above:Performed By: #### CBC ####[place] [address] USANeutrophils (Bld) [#/Vol]7.0 10*3/uLNormal1.8-7.7The Unc Health Physician GroupComment on above:Performed By: #### CBC ####[place] [address] USANeutrophils/100 WBC (Bld)80.4 %Normal. The Unc Health Physician GroupComment on above:Performed By: #### CBC ####[place] [address] USANRBC% 0.0 /100{WBC}Normal0-0.5The Unc Health Physician GroupComment on above:Performed By: #### CBC ####[place] [address] USAPlatelet mean volume (Bld) [Entitic vol]8.1 fLNormal6.6-10.1The Unc Health Physician GroupComment on above:Performed By: #### CBC ####[place] [address] USAPlatelets (Bld) [#/Vol]202 10*3/rJNuedgz250-097Muu Unc Health Physician GroupComment on above: Performed By: #### CBC ####[place] [address] USARBC (Bld) [#/Vol]3.24 10*6/uLLow3.90-5.60The Unc Health Physician GroupComment on above:Performed By: #### CBC ####[place] [address] USAWBC (Bld) [#/Vol]8.7 10*3/uLNormal4.1-10.5The Unc Health Physician GroupComment on above:Performed By: #### CBC ####[place] [address] USAEosinophils Auto (Bld) [#/Vol]Ordered By: Sandip Bunting on 06-13-2024 Eosinophils (Bld) [#/Vol]Automated eosinophil count0.0-0.45[facility] HospitalEosinophils/100 WBC Auto (Bld)Ordered By: Sandip Bunting on 06-35-8909Gaxaphizjdf/100 WBC (Bld)Automated eosinophil %.[facility] HospitalErythrocyte distribution width Auto (RBC) [Ratio]Ordered By: Sandip Bunting on 59-99-8787Kfgibumelqd distribution width (RBC) [Ratio] Erythrocyte distribution width [Ratio] by Automated yiqboTcjn95.0-14.8[facility] HospitalHematocrit Auto (Bld) [Volume fraction]Ordered By: Sandip Bunting on 97-18-3509Zlapllrqde (Bld) [Volume fraction]Hematocrit [Volume Fraction] of Blood by Automated gjiuvAwx98.8-50.0[facility] HospitalHemoglobin [Mass/volume] in BloodOrdered By: Sandip Bunting on 06-13-2024 Hemoglobin (Bld) [Mass/Vol]Hemoglobin [Mass/volume] in JkrlgBcq89.0-17.0 [facility] HospitalLeukocytes [#/volume] corrected for nucleated erythrocytes in Blood by Automated counOrdered By: Sandip Bunting on 06-13-2024 WBC corrected for nucl RBC Auto (Bld) [#/Vol]Leukocytes [#/volume] corrected for nucleated erythrocytes in Blood by Automated coun4.1-10.5FCommunity Regional Medical CenterLymphocytes Auto (Bld) [#/Vol]Ordered By: Sandip Bunting on 07-38-1578Humaxiqmkta (Bld) [#/Vol]Lymphocytes [#/volume] in Blood by Automated countLow1.00-4.8[facility] HospitalLymphocytes/100 WBC Auto (Bld) Ordered By: Sandip Bunting on 48-45-8323Lhqvnhohadp/100 WBC (Bld)Lymphocytes/100 leukocytes in Blood by Automated count.[facility] HospitalMCH Auto (RBC) [Entitic mass]Ordered By: Sandip Bunting on 29-59-1902CLU (RBC) [Entitic mass]MCH [Entitic mass] by Automated count27.5-35.2FCommunity Regional Medical CenterMCHC Auto (RBC) [Mass/Vol]Ordered By: Sandip Bunting on 06-13-2024 MCHC (RBC) [Mass/Vol]MCHC [Mass/volume] by Automated count32.5-35.6FCommunity Regional Medical CenterMCV Auto (RBC) [Entitic vol]Ordered By: Sandip Bunting on 39-35-0086YOM (RBC) [Entitic vol]MCV [Entitic volume] by Automated count83.5-101 [facility] HospitalMonocytes Auto (Bld) [#/Vol]Ordered By: Sandip Bunting on 46-37-2129Hlielevyk (Bld) [#/Vol]Automated blood monocyte count 0.0-0.8[facility] HospitalMonocytes/100 WBC Auto (Bld)Ordered By: Sandip Bunting on 43-36-1145Avrkiltgn/100 WBC (Bld)Automated monocyte %. [facility] HospitalNeutrophils Auto (Bld) [#/Vol]Ordered By: Sandip Bunting on 20-51-9730Hjwiobkdhlm (Bld) [#/Vol]Neutrophils [#/volume] in Blood by Automated count1.8-7.7FCommunity Regional Medical CenterNeutrophils/100 WBC Auto (Bld)Ordered By: Sandip Bunting on 87-78-8194Ydsbgcrxzgs/100 WBC (Bld) Automated neutrophil %.[facility] HospitalNucleated erythrocytes [Presence] in Blood by Automated countOrdered By: Sandip Bunting on 06-13-2024 Nucleated RBC Auto Ql (Bld)Nucleated erythrocytes [Presence] in Blood by Automated count0-0.5FCommunity Regional Medical CenterPlatelet mean volume Auto (Bld) [Entitic vol]Ordered By: Sandip Bunting on 17-64-2380Qqroezmy mean volume (Bld) [Entitic vol]Platelet mean volume [Entitic volume] in Blood by Automated count6.6-10.1FCommunity Regional Medical CenterPlatelets Auto (Bld) [#/Vol] Ordered By: Sandip Bunting on 26-17-4181Onrjbynsu (Bld) [#/Vol]Platelets [#/volume] in Blood by Automated gttob603-571WlcwsqrlwOhio Valley Surgical Hospital RBC Auto (Bld) [#/Vol]Ordered By: Sandip Bunting on 69-05-9081BPI (Bld) [#/Vol] Erythrocytes [#/volume] in Blood by Automated countLow3.90-5.60[facility] HospitalWBC Auto (Bld) [#/Vol]Ordered By: Sandip Bunting on 24-16-7294QCZ (Bld) [#/Vol]Leukocytes [#/volume] in Blood by Automated count 4.1-10.5FCommunity Regional Medical CenterAppearance of UrineOrdered By: Sandip Bunting on 88-48-1985Qvpihdfugv (U)Urine appearanceAbnormalClearOhio Valley Surgical HospitalBacteria [Presence] in Urine by AutomatedOrdered By: Sandip Bunting on 51-90-6985Axysvish Auto Ql (U)Bacteria [Presence] in Urine by AutomatedNone [facility] Health CenterBilirubin Test strip Ql (U) Ordered By: Sandip Bunting on 99-55-0754Tbaxhddgv Ql (U)Bilirubin.total [Presence] in Urine by Test stripNegativeOhio Valley Surgical HospitalColor Auto (U)Ordered By: Sandip Bunting on 21-51-4030Doxoo (U)Color of Urine by Auto YellowOhio Valley Surgical HospitalDipstick and Microscopicon 06-12-2024 Appearance (U)TurbidCritically abnormalClearThe Unc Health Physician GroupComment on above:Order Comment: Name Collection Type:: Collection Method Unknown Performed By: #### CUU, ADDONUAPLUS ####[facility] [facility] [place], [place] USABacteria,UrineRareNormalNone SeenBaptist Health Wolfson Children'S Hospital Physician GroupComment on above:Order Comment: Name Collection Type:: Collection Method UnknownPerformed By: #### CUU, ADDONUAPLUS ####[facility] [facility], [id number] USABilirubin,UrineNegativeNormal NegativeThe Unc Health Physician GroupComment on above:Order Comment: Name Collection Type:: Collection Method UnknownPerformed By: #### CUU, ADDONUAPLUS ####[facility] [place] [place] USAColor (U)YellowNormalYellowThe Unc Health Physician GroupComment on above:Order Comment: Name Collection Type:: Collection Method UnknownPerformed By: #### CUU, ADDONUAPLUS ####[facility] [facility] [address] USAGlucose Ql (U)NormalNormalNormalThe Unc Health Physician GroupComment on above:Order Comment: Name Collection Type:: Collection Method UnknownPerformed By: #### CUU, ADDONUAPLUS ####[address] [id number] USAHyaline Casts,UrineNoneNormal0-8The Unc Health Physician GroupComment on above:Order Comment: Name Collection Type:: Collection Method UnknownResult Comment: PERFORMED BY:[address] [place], [place] [phone] MEDICAL DIRECTORJAJA CATES M.D.Performed By: #### CUU, ADDONUAPLUS ####[address] USAKetones Ql (U)NegativeNormalNegativeBaptist Health Wolfson Children'S Hospital Physician GroupComment on above:Order Comment: Name Collection Type:: Collection Method UnknownPerformed By: #### MANDO, ADDONUAPLUS ####[address] [address] USALeukocyte esterase Test strip Ql (U)4+HighNegativeBaptist Health Wolfson Children'S Hospital Physician GroupComment on above:Order Comment: Name Collection Type:: Collection Method UnknownPerformed By: #### MANDO, ADDONUAPLUS ####[address] [id number] USANitrite,UrinePositiveHigh NegativeThe Unc Health Physician GroupComment on above:Order Comment: Name Collection Type:: Collection Method UnknownPerformed By: #### CUU, ADDONUAPLUS ####[address] [id number] USAOccult Blood,Urine2+HighNegativeBaptist Health Wolfson Children'S Hospital Physician GroupComment on above:Order Comment: Name Collection Type:: Collection Method UnknownResult Comment: PERFORMED BY:[address] [address] [address]STEINDaneAM[place], [place] [phone] MEDICAL DIRECTORJAJA CATES M.D. Performed By: #### MANDO ADDONUAPLUS ####[address], [id number] USApH (U)8.0 [pH]Normal5.0-9.0The Unc Health Physician GroupComment on above:Order Comment: Name Collection Type:: Collection Method UnknownPerformed By: #### CUU, ADDONUAPLUS ####[address] [facility] [place], [place] USAProtein (U) [Mass/Vol]70 mg/dLHigh NegativeThe Unc Health Physician GroupComment on above:Order Comment: Name Collection Type:: Collection Method UnknownPerformed By: #### CUU, ADDONUAPLUS ####[address], [place] [place] RBC,Fxubj82-19Pzsy7-1Mcb Unc Health Physician GroupComment on above:Order Comment: Name Collection Type:: Collection Method UnknownPerformed By: #### CUU, ADDONUAPLUS ####[address] [address] USASpecificy Randolph,Urine1.523Tgdfwx8.001-1.030The Unc Health Physician GroupComment on above:Order Comment: Name Collection Type:: Collection Method UnknownPerformed By: #### CUU, ADDONUAPLUS ####[address] [facility] centerluc[place], [place] USAUrobilinogen,UrineNormalNormalNormalThe Unc Health Physician GroupComment on above:Order Comment: Name Collection Type:: Collection Method UnknownPerformed By: #### CUU, ADDONUAPLUS ####[address] [facility] [place], [place] USAWBC CLUMP, UrineMany HighNone SeenBaptist Health Wolfson Children'S Hospital Physician GroupComment on above:Order Comment: Name Collection Type:: Collection Method UnknownPerformed By: #### CUU, ADDONUAPLUS ####[address] [facility] [place], [place] [place] WBC,UrineInnumerableHigh0-4The Unc Health Physician GroupComment on above:Order Comment: Name Collection Type:: Collection Method UnknownPerformed By: #### CUU, ADDONUAPLUS ####[facility] [address] [place] [address] USAEpithelial cells.squamous [#/area] in Urine sediment by Automated count Ordered By: Sandip Bunting on 89-00-9555Hfcbnbwxod cells.squamous Auto (Urine sed) [#/Area]Epithelial cells.squamous [#/area] in Urine sediment by Automated countOhio Valley Surgical HospitalErythrocytes [#/area] in Urine sediment by Automated countOrdered By: Sandip Bunting on 48-23-1949JQI Auto (Urine sed) [#/Area]Erythrocytes [#/area] in Urine sediment by Automated countHigh0-4 [facility] HospitalGlucose [Mass/volume] in Urine by Test strip Ordered By: Sandip Bunting on 21-86-0529Wmzqazn Test strip (U) [Mass/Vol]Glucose [Mass/volume] in Urine by Test stripWyandot Memorial Hospital Hemoglobin Test strip Ql (U)Ordered By: Sandip Bunting on 53-22-8934Ozsdkkzsbj Ql (U)Hemoglobin [Presence] in Urine by Test stripProMedica Memorial HospitalHyaline casts [#/area] in Urine sediment by Automated count Ordered By: Sandip Bunting on 37-91-9448Loyclnw casts Auto (Urine sed) [#/Area] Hyaline casts [#/area] in Urine sediment by Automated count0-8[facility] Surgical HospitalKetones Test strip Ql (U)Ordered By: Sandip Bunting on 06-12-2024 Ketones Ql (U)Ketones [Presence] in Urine by Test stripNegOhioHealth Grady Memorial HospitalLeukocyte clumps [Presence] in Urine by AutomatedOrdered By: Sandip Bunting on 61-34-9059Lznyktary clumps Auto Ql (U)Leukocyte clumps [Presence] in Urine by AutomatedMon Health Medical Centere [facility] Leukocyte esterase [Presence] in Urine by Test stripOrdered By: Sandip Bunting on 62-55-1133Vvdqgiqjf esterase Test strip Ql (U)Leukocyte esterase [Presence] in Urine by Test stripProMedica Memorial HospitalLeukocytes [#/area] in Urine sediment by Automated countOrdered By: Sandip Bunting on 46-03-6866ADQ Auto (Urine sed) [#/Area]Leukocytes [#/area] in Urine sediment by Automated countHigh0-4FCommunity Regional Medical CenterNitrite Test strip Ql (U) Ordered By: Sandip Bunting on 14-95-4140Sujwzzj Ql (U)Nitrite [Presence] in Urine by Test stripHighNegOhioHealth Grady Memorial HospitalProtein Test strip (U) [Mass/Vol]Ordered By: Sandip Bunting on 89-22-5261Yhhczpn (U) [Mass/Vol]Protein [Mass/volume] in Urine by Test stripHighNegWVUMedicine Harrison Community Hospitalpecific gravity Test strip (U) [Rel density]Ordered By: Sandip Bunting on 92-73-9257Yffycohq gravity (U) [Rel density]Specific gravity of Urine by Test strip1.001-1.030[facility] Surgical HospitalUrine Culture on 08-58-6213Gfzpweuw identified Cx Nom (U)NormalThe Unc Health Physician Group Comment on above:Performed By: #### CUU, ADDEMERITAUAPLUS ####[facility] StreetUrine cultureOrdered By: Sandip Bunting on 73-34-6952Rpslgkwc identified Cx Nom (U)AbnormalOhio Valley Surgical HospitalBacteria identified Cx Nom (U)AbnormalOhio Valley Surgical HospitalUrine cultureAbnoMercy Health Defiance HospitalUrine culture AbnormalOhio Valley Surgical HospitalUrobilinogen Test strip (U) [Mass/Vol] Ordered By: Sandip Bunting on 62-97-0583Bykvqkbnjclw (U) [Mass/Vol]Urobilinogen [Mass/volume] in Urine by Test stripNoMercy Health Defiance HospitalpH Test strip (U)Ordered By: Sandip Bunting on 07-32-2708oZ (U)pH of Urine by Test strip5.0-9.0[facility] HospitalBasophils Auto (Bld) [#/Vol]Ordered By: Sandip Bunting on 97-80-5609Uvckjigid (Bld) [#/Vol]Automated basophil count 0.0-0.2FCommunity Regional Medical CenterBasophils/100 WBC Auto (Bld)Ordered By: Sandip Bunting on 77-53-3700Thaclahxv/100 WBC (Bld)Automated basophil %. [facility] HospitalC reactive protein [Mass/volume] in Serum or PlasmaOrdered By: Sandip Bunting on 80-92-6380FBF [Mass/Vol]C reactive protein [Mass/volume] in Serum or PlasmaHigh0.0-0.5FCommunity Regional Medical CenterC- Reactive Proteinon 91-22-3233R-Reactive Pvtwqwo09.3 mg/dLHigh0.0-0.5The Unc Health Physician GroupComment on above:Result Comment: PERFORMED BY:[address] [place], [place] [phone] MEDICAL DIRECTORJAJA CATES M.D.Performed By: #### CRP, CBC, ESR ####[address] [address] [facility] Complete Blood Count Auto Diffon 23-15-0617Zhumihosu (Bld) [#/Vol]0.0 10*3/uL Normal0.0-0.2The [facility] Physician [facility] HospitalComment on above:Performed By: #### CRP, CBC, ESR ####[address] [address] USABasophils/100 WBC (Bld)0.3 %Normal.The [facility] Health Physician GroupComment on above:Performed By: #### CRP, CBC, ESR ####[address] [address] USAEosinophils (Bld) [#/Vol]0.1 10*3/uL Normal0.0-0.45The [facility] Physician [facility] General HospitalComment on above:Performed By: #### CRP, CBC, ESR ####[address] [address] USAEosinophils/100 WBC (Bld)0.6 %Normal.The [facility] Comment on above:Performed By: #### CRP, CBC, ESR ####[address] [address] USAErythrocyte distribution width (RBC) [Ratio]16.3 %High12.0-14.8The Unc Health Physician GroupComment on above: Performed By: #### CRP, CBC, ESR ####[place] [id number] USAHematocrit (Bld) [Volume fraction]26.9 %Low38.8-50.0 The Unc Health Physician GroupComment on above:Performed By: #### CRP, CBC, ESR ####[place] [address] [facility] Hemoglobin (Bld) [Mass/Vol]8.8 g/dLLow13.0-17.0The [facility] Comment on above:Performed By: #### CRP, CBC, ESR ####[place] [address] USALymphocytes (Bld) [#/Vol]1.7 10*3/uL Normal1.00-4.8The Unc Health Physician GroupComment on above:Performed By: #### CRP, CBC, ESR ####[place] [address] USALymphocytes/100 WBC (Bld)13.8 %Normal.The [facility] Comment on above:Performed By: #### CRP, CBC, ESR ####[address] [address] USAMCH (RBC) [Entitic mass]29.1 pgNormal 27.5-35.2The Unc Health Physician GroupComment on above:Performed By: #### CRP, CBC, ESR ####[address] [address] USAMCV (RBC) [Entitic vol]88.8 oCLeiqfs40.5-101The [facility] Comment on above:Performed By: #### CRP, CBC, ESR ####[place] [address] USAMean Corpuscular HGB Conc32.8 g/dL Howvpf48.5-35.6The Unc Health Physician GroupComment on above:Performed By: #### CRP, CBC, ESR ####[address] [place] [address] USAMonocytes (Bld) [#/Vol]1.1 10*3/uLHigh0.0-0.8The Un[facility] Health Physician GroupComment on above:Performed By: #### CRP, CBC, ESR ####[address] [address] USAMonocytes/100 WBC (Bld)9.1 % Normal.The [facility] Health Physician GroupComment on above:Performed By: #### CRP, CBC, ESR ####[address] [address] USANeutrophils (Bld) [#/Vol]9.1 10*3/uLHigh1.8-7.7The [facility] Comment on above:Performed By: #### CRP, CBC, ESR ####[address] [address] USANeutrophils/100 WBC (Bld)76.2 %Normal .The Unc Health Physician GroupComment on above:Performed By: #### CRP, CBC, ESR ####[address] [address] USANRBC% 0.0 /100{WBC}Normal0-0.5The Unc Health Physician GroupComment on above:Performed By: #### CRP, CBC, ESR ####[address] [address] USAPlatelet mean volume (Bld) [Entitic vol]8.0 fLNormal 6.6-10.1The Un[facility] Health Physician GroupComment on above:Performed By: #### CRP, CBC, ESR ####[address] [address] USAPlatelets (Bld) [#/Vol]214 10*3/xUGyhdfa081-027Mvw [facility] Comment on above:Performed By: #### CRP, CBC, ESR ####[address] [address] USARBC (Bld) [#/Vol]3.03 10*6/uLLow 3.90-5.60The Un[facility] Health Physician GroupComment on above:Performed By: #### CRP, CBC, ESR ####[address] [place] [address] USAWBC (Bld) [#/Vol]12.0 10*3/uLHigh4.1-10.5The [facility] Health Physician GroupComment on above:Performed By: #### CRP, CBC, ESR ####[address] [address] USAEosinophils Auto (Bld) [#/Vol]Ordered By: Sandip Bunting on 61-10-6600Maemanuogqk (Bld) [#/Vol]Automated eosinophil count0.0-0.45[facility] Surgical HospitalEosinophils/100 WBC Auto (Bld) Ordered By: Sandip Bunting on 67-77-9419Liubbvxuybu/100 WBC (Bld)Automated eosinophil %.[facility] Surgical HospitalErythrocyte Sedimentation Rateon 87-14-3145QBW (Bld) [Velocity]97 mm/hHigh0-19The [facility] Comment on above:Result Comment: PERFORMED BY:[address] [place], [place] [phone] MEDICAL DIRECTORJAJA CATES M.D.Performed By: #### CRP, CBC, ESR ####[address] [address] [facility] Erythrocyte distribution width Auto (RBC) [Ratio]Ordered By: Sandip Bunting on 82-93-5331Wimbhabblva distribution width (RBC) [Ratio]Erythrocyte distribution width [Ratio] by Automated cvaskEgbf52.0-14.8[facility] Erythrocyte sedimentation rate by Photometric methodOrdered By: Sandip Bunting on 20-33-7622OGL Photometric method (Bld) [Velocity]Erythrocyte sedimentation rate by Photometric methodHigh0-19[facility] HospitalHematocrit Auto (Bld) [Volume fraction]Ordered By: Sandip Bunting on 94-45-7033Sbxdyvvfxb (Bld) [Volume fraction]Hematocrit [Volume Fraction] of Blood by Automated count Low38.8-50.0[facility] HospitalHemoglobin [Mass/volume] in Blood Ordered By: Sandip Bunting on 91-78-2439Vuemhamatf (Bld) [Mass/Vol]Hemoglobin [Mass/volume] in NhzwfUex29.0-17.0[facility] HospitalLeukocytes [#/volume] corrected for nucleated erythrocytes in Blood by Automated coun Ordered By: Sandip Bunting on 64-42-9233YYU corrected for nucl RBC Auto (Bld) [#/Vol]Leukocytes [#/volume] corrected for nucleated erythrocytes in Blood by Automated counHigh4.1-10.5FCommunity Regional Medical CenterLymphocytes Auto (Bld) [#/Vol]Ordered By: Sandip Bunting on 71-98-8248Mezkscrtvyb (Bld) [#/Vol] Lymphocytes [#/volume] in Blood by Automated count1.00-4.8[facility] HospitalLymphocytes/100 WBC Auto (Bld)Ordered By: Sandip Bunting on 48-62-0235Wnykdogtcai/100 WBC (Bld)Lymphocytes/100 leukocytes in Blood by Automated count.[facility] HospitalMCH Auto (RBC) [Entitic mass] Ordered By: Sandip Bunting on 35-37-7213TNW (RBC) [Entitic mass]MCH [Entitic mass] by Automated count27.5-35.2FCommunity Regional Medical CenterMCHC Auto (RBC) [Mass/Vol]Ordered By: Sandip Bunting on 21-89-0690GIQA (RBC) [Mass/Vol] MCHC [Mass/volume] by Automated count32.5-35.6FCommunity Regional Medical Center MCV Auto (RBC) [Entitic vol]Ordered By: Sandip Bunting on 31-46-9733DZK (RBC) [Entitic vol]MCV [Entitic volume] by Automated count83.5-101[facility] HospitalMonocytes Auto (Bld) [#/Vol]Ordered By: Sandip Bunting on 62-52-3966Vqkswhcfn (Bld) [#/Vol]Automated blood monocyte countHigh0.0-0.8 [facility] HospitalMonocytes/100 WBC Auto (Bld)Ordered By: Sandip Aguirre on 85-84-6549Dlrxswdso/100 WBC (Bld)Automated monocyte %.[facility] HospitalNeutrophils Auto (Bld) [#/Vol]Ordered By: Sandip Bunting on 17-68-7878Eqkvtawfuut (Bld) [#/Vol]Neutrophils [#/volume] in Blood by Automated countHigh1.8-7.7FCommunity Regional Medical CenterNeutrophils/100 WBC Auto (Bld)Ordered By: Sandip Aguirre on 71-44-7566Iltotfqzroq/100 WBC (Bld) Automated neutrophil %.[facility] HospitalNucleated erythrocytes [Presence] in Blood by Automated countOrdered By: Sandip Aguirre on 06-11-2024 Nucleated RBC Auto Ql (Bld)Nucleated erythrocytes [Presence] in Blood by Automated count0-0.5FCommunity Regional Medical CenterPlatelet mean volume Auto (Bld) [Entitic vol]Ordered By: Sandip Aguirre on 32-75-4959Nmhpmfcd mean volume (Bld) [Entitic vol]Platelet mean volume [Entitic volume] in Blood by Automated count6.6-10.1FCommunity Regional Medical CenterPlatelets Auto (Bld) [#/Vol] Ordered By: Sandip Mirzating on 59-15-1060Aiczhovxx (Bld) [#/Vol]Platelets [#/volume] in Blood by Automated gquij233-378FvwapqlcaOhio Valley Surgical Hospital RBC Auto (Bld) [#/Vol]Ordered By: Sandip Mirzating on 12-10-3332JYR (Bld) [#/Vol] Erythrocytes [#/volume] in Blood by Automated countLow3.90-5.60[facility] HospitalWBC Auto (Bld) [#/Vol]Ordered By: Sandip Bunting on 48-71-9422MBP (Bld) [#/Vol]Leukocytes [#/volume] in Blood by Automated countHigh 4.1-10.5FCommunity Regional Medical CenterInfectious Disease Office/Clinic Noteon 94-53-6317Kbrufgwabl Disease Office/Clinic NoteAssessment/Plan 1. Surgical wound dehiscence [...] has had no fevers or chills. This continuity writer did talk with patient he is [...] the andre [1] he had surgery at [facility] in [place].Postoperatively gained a lot of fluid weight. Also has catheter for urinary retention. Has chronic lymphedema uses pumps at home. Admitted to [facility] had MRI that showed fluid collection. History ofA-fib. Surgery was not done there due to need for cardiology services. Transferred to [facility] where he connected with cardiology. Actually went [...] to witness patient stand with assist. This continuity writer was able to visualize back incision [...] (02/21/2024) Lumbar Wound Irri (more content not included)...[facility] HospitalProvider Letteron [phone] Letter Re: Tavo Wallis Carson Date of Visit: 06/07/2024 13:30:[address] Mcintyre, In regards to our mutual patient Vaughn Tavo Byrd. Attached you will find the most recent office visit note. Please call if you have any questions or concerns. Sincerely, Tamar Cunha APRN-C [facility] [address], [address] [place] [address] The following document(s) were included in the letter: June 07, 2024 14:05:12 EDT - (06/07/2024) Infectious Disease Office Visit Note [facility] HospitalBasic Metabolic Panelon 77-36-0153Qhnsm gap [Moles/Vol]14.1 mmol/LNormal6.0-15.0The Unc Health Physician GroupComment on above:Order Comment: BMP ADD ON PER *[employer] AIR TANK ASSEMBLER-TRUCK LOADER AND UNLOADER, Tamar Luis M* AT INFECTIOUS DISEASE AND TRAVEL MEDICINE. FAXED ORDER ASKING TO ADD ON TO BLOOD DRAWN EARLIER TODAY.Performed By: #### CRP, BMP, CBC, ESR ####[facility] [address] [place] [address] USACalcium [Mass/Vol]9.0 mg/dL Normal8.6-10.3The Unc Health Physician GroupComment on above:Order Comment: BMP ADD ON PER *[employer] TANK ASSEMBLER-TRUCK LOADER AND UNLOADER, Tamar Luis M* AT INFECTIOUS DISEASE AND TRAVEL MEDICINE. FAXED ORDER ASKING TO ADD ON TO BLOOD DRAWN EARLIER TODAY.Performed By: #### CRP, BMP, CBC, ESR ####[facility] [address] [place] [address] USAChloride [Moles/Vol]100 mmol/ABaluep97-838Ogr Unc Health Physician GroupComment on above:Order Comment: BMP ADD ON PER *[employer] TANK ASSEMBLER-TRUCK LOADER AND UNLOADER, Tamar Luis M* AT INFECTIOUS DISEASE AND TRAVEL MEDICINE. FAXED ORDER ASKING TO ADD ON TO BLOOD DRAWN EARLIER TODAY.Performed By: #### CRP, BMP, CBC, ESR ####[facility] [place] [address] USACO2 [Moles/Vol]28.8 mmol/XZyfwhm80.0-31.0The Unc Health Physician GroupComment on above:Order Comment: BMP ADD ON PER *[employer] TANK ASSEMBLER-TRUCK LOADER AND UNLOADER, Tamar Luis M* AT INFECTIOUS DISEASE AND TRAVEL MEDICINE. FAXED ORDER ASKING TO ADD ON TO BLOOD DRAWN EARLIER TODAY.Performed By: #### CRP, BMP, CBC, ESR ####[place] [address] [place] [address] USACreatinine [Mass/Vol] 1.16 mg/dLNormal0.70-1.30The Unc Health Physician GroupComment on above:Order Comment: BMP ADD ON PER *[employer] TANK ASSEMBLER-TRUCK LOADER AND UNLOADER, Tamar Luis M* AT INFECTIOUS DISEASE AND TRAVEL MEDICINE. FAXED ORDER ASKING TO ADD ON TO BLOOD DRAWN EARLIER TODAY. Performed By: #### CRP, BMP, CBC, ESR ####[address] [place] [address] USAGFR/1.73 sq M.predicted MDRD (S/P/Bld) [Vol rate/Area]mL/min/{1.73_m2}NormalThe Unc Health Physician GroupComment on above: Order Comment: BMP ADD ON PER *[employer] TANK ASSEMBLER-TRUCK LOADER AND UNLOADER, Tamar Luis M* AT INFECTIOUS DISEASE AND TRAVEL MEDICINE. FAXED ORDER ASKING TO ADD ON TO BLOOD DRAWN EARLIER TODAY.Performed By: #### CRP, BMP, CBC, ESR ####[facility] [place] [address] USAGlucose [Mass/Vol]93 mg/hLFqehrm22-359 The Unc Health Physician GroupComment on above:Order Comment: BMP ADD ON PER *[employer] TANK ASSEMBLER-TRUCK LOADER AND UNLOADER, Tamar Luis M* AT INFECTIOUS DISEASE AND TRAVEL MEDICINE. FAXED ORDER ASKING TO ADD ON TO BLOOD DRAWN EARLIER TODAY.Result Comment: Random Glucose Reference Range is dependent on time and content of last meal. Glucose of more than 200 mg/dL in a nonstressed, ambulatory subject supports the diagnosis of Diabetes Mellitus. ADA recommended reference rangePerformed By: #### CRP, BMP, CBC, ESR ####[place] [address] [place] [address] USAPotassium [Moles/Vol]3.9 mmol/LNormal3.5-5.1The Unc Health Physician GroupComment on above:Order Comment: BMP ADD ON PER *[employer] TANK ASSEMBLER-TRUCK LOADER AND UNLOADER, Tamar Luis M* AT INFECTIOUS DISEASE AND TRAVEL MEDICINE. FAXED ORDER ASKING TO ADD ON TO BLOOD DRAWN EARLIER TODAY.Performed By: #### CRP, BMP, CBC, ESR ####[address] [address] USASodium [Moles/Vol]139 mmol/XUjpcao651-382Xbf Un[facility] Health Physician GroupComment on above:Order Comment: BMP ADD ON PER *[employer] TANK ASSEMBLER-TRUCK LOADER AND UNLOADER, Tamar Luis M* AT INFECTIOUS DISEASE AND TRAVEL MEDICINE. FAXED ORDER ASKING TO ADD ON TO BLOOD DRAWN EARLIER TODAY.Performed By: #### CRP, BMP, CBC, ESR ####[address] [address] USAUrea nitrogen [Mass/Vol]19 mg/dLNormal7-25The Unc Health Physician GroupComment on above:Order Comment: BMP ADD ON PER *[employer] TANK ASSEMBLER-TRUCK LOADER AND UNLOADER, Tamar Luis M* AT INFECTIOUS DISEASE AND TRAVEL MEDICINE. FAXED ORDER ASKING TO ADD ON TO BLOOD DRAWN EARLIER TODAY. Performed By: #### CRP, BMP, CBC, ESR ####[address] [address] USABasophils Auto (Bld) [#/Vol]Ordered By: Sandip Bunsantiago on 99-22-4442Yeyeddbdh (Bld) [#/Vol]Automated basophil count0.0-0.2 [facility] HospitalBasophils/100 WBC Auto (Bld)Ordered By: Sandip Bunting on 22-95-0814Nmfficqeq/100 WBC (Bld)Automated basophil %.[facility] HospitalC reactive protein [Mass/volume] in Serum or Plasma Ordered By: Sandip Aguirre on 93-72-2617UGG [Mass/Vol]C reactive protein [Mass/volume] in Serum or PlasmaHigh0.0-0.5FCommunity Regional Medical CenterC- Reactive Proteinon 21-25-2488W-Reactive Protein7.7 mg/dLHigh0.0-0.5The Unc Health Physician GroupComment on above:Result Comment: PERFORMED BY:[facility] [place], [place] [phone] MEDICAL DIRECTORJAJA CATES M.D.Performed By: #### CRP, BMP, CBC, ESR ####[facility] [address] [place] [address] USAOrder Comment: BMP ADD ON PER *Guerline BELLA, Tamar Asencio* AT INFECTIOUS DISEASE AND TRAVEL MEDICINE. FAXED ORDER ASKING TO ADD ON TO BLOOD DRAWN EARLIER TODAY. Calcium [Mass/volume] in Serum or PlasmaOrdered By: Sandip Bunting on 06-06-2024 Calcium [Mass/Vol]Calcium [Mass/volume] in Serum or Plasma8.6-10.3FCommunity Regional Medical CenterCarbon dioxide, total [Moles/volume] in Serum or Plasma Ordered By: Sandip Bunting on 65-37-7864YE1 [Moles/Vol]Carbon dioxide, total [Moles/volume] in Serum or Kgvbjl53.0-31.0[facility] Chloride [Moles/volume] in Serum or PlasmaOrdered By: Sandip Bunting on 65-06-4780Stuofubn [Moles/Vol]Chloride [Moles/volume] in Serum or Wrbycv47-944 [facility] HospitalComplete Blood Count Auto Diffon 06-06-2024 Basophils (Bld) [#/Vol]0.1 10*3/uLNormal0.0-0.2The [facility] Comment on above:Performed By: #### CRP, BMP, CBC, ESR ####[facility] [address] [place] [address] USABasophils/100 WBC (Bld)0.6 % Normal.The Unc Health Physician GroupComment on above:Performed By: #### CRP, BMP, CBC, ESR ####[place] [address] USAEosinophils (Bld) [#/Vol]0.6 10*3/uLHigh0.0-0.45The Unc Health Physician GroupComment on above:Performed By: #### CRP, BMP, CBC, ESR ####[place] [address] USAEosinophils/100 WBC (Bld)6.2 %Normal.The Unc Health Physician GroupComment on above:Performed By: #### CRP, BMP, CBC, ESR ####[place] [address] USAErythrocyte distribution width (RBC) [Ratio]16.3 % High12.0-14.8The Unc Health Physician GroupComment on above:Performed By: #### CRP, BMP, CBC, ESR ####[place] [address] USAHematocrit (Bld) [Volume fraction]28.8 %Low38.8-50.0The Unc Health Physician GroupComment on above:Performed By: #### CRP, BMP, CBC, ESR ####[address] Hemoglobin (Bld) [Mass/Vol]9.6 g/dLLow13.0-17.0The [facility] Comment on above:Performed By: #### CRP, BMP, CBC, ESR ####[place] [address] USALymphocytes (Bld) [#/Vol]1.7 10*3/uLNormal1.00-4.8The Unc Health Physician GroupComment on above:Performed By: #### CRP, BMP, CBC, ESR ####[place] [address] USALymphocytes/100 WBC (Bld)19.1 %Normal.The Unc Health Physician GroupComment on above:Performed By: #### CRP, BMP, CBC, ESR ####[place] [address] [facility]ENTERMCH (RBC) [Entitic mass]30.1 ffYabywf35.5-35.2The Un[facility] Health Physician GroupComment on above:Performed By: #### CRP, BMP, CBC, ESR ####[address] (RBC) [Entitic vol]90.1 fLNormal 83.5-101The Unc Health Physician GroupComment on above:Performed By: #### CRP, BMP, CBC, ESR ####[place] [address] USAMean Corpuscular HGB Conc33.4 g/rREjipbr11.5-35.6The Unc Health Physician GroupComment on above:Performed By: #### CRP, BMP, CBC, ESR ####[place] [address] [place] Monocytes (Bld) [#/Vol]0.6 10*3/uLNormal0.0-0.8[facility] Comment on above:Performed By: #### CRP, BMP, CBC, ESR ####[place] [address] USAMonocytes/100 WBC (Bld)6.1 % Normal.The Un[facility] Health Physician GroupComment on above:Performed By: #### CRP, BMP, CBC, ESR ####[place] [address] USANeutrophils (Bld) [#/Vol]6.2 10*3/uLNormal1.8-7.7The Unc Health Physician GroupComment on above:Performed By: #### CRP, BMP, CBC, ESR ####[place] [address] [place] Neutrophils/100 WBC (Bld)68.0 %Normal.The Un[facility] Health Physician GroupComment on above:Performed By: #### CRP, BMP, CBC, ESR ####[place] [address] USANRBC%0.1 /100{WBC}Normal0-0.5The Unc Health Physician GroupComment on above:Performed By: #### CRP, BMP, CBC, ESR ####[address] Platelet mean volume (Bld) [Entitic vol]7.9 fLNormal6.6-10.1The Un[facility] Health Physician GroupComment on above:Performed By: #### CRP, BMP, CBC, ESR ####[address] Platelets (Bld) [#/Vol]270 10*3/rZLmpmye383-192Bmb [facility] Comment on above:Performed By: #### CRP, BMP, CBC, ESR ####[place] [address] USARBC (Bld) [#/Vol]3.19 10*6/uL Low3.90-5.60The [facility] Physician [facility] HospitalComment on above:Performed By: #### CRP, BMP, CBC, ESR ####[place] [address] USAWBC (Bld) [#/Vol]9.1 10*3/uLNormal4.1-10.5The Un[facility] Health Physician GroupComment on above:Performed By: #### CRP, BMP, CBC, ESR ####[place] [address] USACreatinine [Mass/volume] in Serum or PlasmaOrdered By: Asndip Bunting on 06-06-2024 Creatinine [Mass/Vol]Creatinine [Mass/volume] in Serum or Plasma0.70-1.30 [facility] HospitalEosinophils Auto (Bld) [#/Vol]Ordered By: Sandip Bunting on 96-27-9580Uawsqgwqktx (Bld) [#/Vol]Automated eosinophil count High0.0-0.45[facility] HospitalEosinophils/100 WBC Auto (Bld) Ordered By: Sandip Bunting on 92-09-2130Rdmrpnibton/100 WBC (Bld)Automated eosinophil %.[facility] HospitalErythrocyte Sedimentation Rateon 13-18-2635ZDB (Bld) [Velocity]72 mm/hHigh0-19The [facility] Comment on above:Result Comment: PERFORMED BY:[facility] [place], [place] [phone] MEDICAL DIRECTORMOKAIT CATES M.D.Performed By: #### CRP, BMP, CBC, ESR ####[facility] [place] [address] [facility] Erythrocyte distribution width Auto (RBC) [Ratio]Ordered By: Sandip Bunting on 90-17-3569Refpztpelfq distribution width (RBC) [Ratio]Erythrocyte distribution width [Ratio] by Automated ieqecZjca07.0-14.8[facility] Erythrocyte sedimentation rate by Photometric methodOrdered By: Sandip Bunting on 84-45-0102HWN Photometric method (Bld) [Velocity]Erythrocyte sedimentation rate by Photometric methodHigh0-19[facility] HospitalGlucose [Mass/volume] in Serum or PlasmaOrdered By: Sandip Bunting on 57-03-7081Ldcveau [Mass/Vol]Glucose [Mass/volume] in Serum or Bbukaw38-601SdiiqcwbqOhio Valley Surgical HospitalComment on above:ADA recommended reference rangeRandom Glucose Reference Range is dependent on time and content of last meal. Glucose of more than 200 mg/dL in a nonstressed, ambulatory subject supports the diagnosisof Diabetes Mellitus.Hematocrit Auto (Bld) [Volume fraction]Ordered By: Sandip Bunting on 61-99-5046Enxzsptnuo (Bld) [Volume fraction]Hematocrit [Volume Fraction] of Blood by Automated qykooPyy65.8-50.0[facility] HospitalHemoglobin [Mass/volume] in BloodOrdered By: Sandip Bunting on 06-06-2024 Hemoglobin (Bld) [Mass/Vol]Hemoglobin [Mass/volume] in YhhcrTjw11.0-17.0 [facility] HospitalLeukocytes [#/volume] corrected for nucleated erythrocytes in Blood by Automated counOrdered By: Sandip Bunting on 06-06-2024 WBC corrected for nucl RBC Auto (Bld) [#/Vol]Leukocytes [#/volume] corrected for nucleated erythrocytes in Blood by Automated coun4.1-10.5FCommunity Regional Medical CenterLymphocytes Auto (Bld) [#/Vol]Ordered By: Sandip Bunting on 45-09-5328Dgprlwhgyrq (Bld) [#/Vol]Lymphocytes [#/volume] in Blood by Automated count1.00-4.8[facility] HospitalLymphocytes/100 WBC Auto (Bld) Ordered By: Sandip Bunting on 83-30-0637Jnucgpxxovt/100 WBC (Bld)Lymphocytes/100 leukocytes in Blood by Automated count.[facility] HospitalMCH Auto (RBC) [Entitic mass]Ordered By: Sandip Bunting on 23-92-6279DGW (RBC) [Entitic mass]MCH [Entitic mass] by Automated count27.5-35.2FCommunity Regional Medical CenterMCHC Auto (RBC) [Mass/Vol]Ordered By: Sandip Bunting on 06-06-2024 MCHC (RBC) [Mass/Vol]MCHC [Mass/volume] by Automated count32.5-35.6FCommunity Regional Medical CenterMCV Auto (RBC) [Entitic vol]Ordered By: Sandip Bunting on 04-15-6278PFJ (RBC) [Entitic vol]MCV [Entitic volume] by Automated count83.5-101 [facility] HospitalMonocytes Auto (Bld) [#/Vol]Ordered By: Asndip Bunting on 83-48-7322Djudgdsrq (Bld) [#/Vol]Automated blood monocyte count 0.0-0.8[facility] HospitalMonocytes/100 WBC Auto (Bld)Ordered By: Sandip Bunting on 73-76-8277Rcnxqlyir/100 WBC (Bld)Automated monocyte %. [facility] HospitalNeutrophils Auto (Bld) [#/Vol]Ordered By: Sandip Bunting on 89-33-8743Iyhjtrupfel (Bld) [#/Vol]Neutrophils [#/volume] in Blood by Automated count1.8-7.7FCommunity Regional Medical CenterNeutrophils/100 WBC Auto (Bld)Ordered By: Sandip Bunting on 44-07-4422Jpdmvprlbzz/100 WBC (Bld) Automated neutrophil %.[facility] HospitalNo Panel Information Ordered By: Sandip Bunting on 96-34-7917Gtftozism GFR (CKD-EPI)> 60.0 mL/Min [facility] HospitalPharmacy Creatinine Clearance (ChemN/AFCommunity Regional Medical Center> 60.0 mL/MinOhio Valley Surgical HospitalN/A [facility] HospitalNucleated erythrocytes [Presence] in Blood by Automated countOrdered By: Sandip Bunting on 51-63-5223Buroojsed RBC Auto Ql (Bld)Nucleated erythrocytes [Presence] in Blood by Automated count0-0.5FCommunity Regional Medical CenterPlatelet mean volume Auto (Bld) [Entitic vol]Ordered By: Sandip Bunting on 90-40-8274Rmeclvzw mean volume (Bld) [Entitic vol]Platelet mean volume [Entitic volume] in Blood by Automated count6.6-10.1FCommunity Regional Medical CenterPlatelets Auto (Bld) [#/Vol]Ordered By: Sandip Bunting on 16-61-6722Aylfdeasm (Bld) [#/Vol]Platelets [#/volume] in Blood by Automated huefq204-905TesuttbvpOhio Valley Surgical HospitalPotassium [Moles/volume] in Serum or PlasmaOrdered By: Sandip Bunting on 42-49-8145Zfavwxtsu [Moles/Vol]Potassium [Moles/volume] in Serum or Plasma3.5-5.1FCommunity Regional Medical CenterRBC Auto (Bld) [#/Vol]Ordered By: Sandip Bunting on 45-51-2773MXC (Bld) [#/Vol] Erythrocytes [#/volume] in Blood by Automated countLow3.90-5.60[facility] Blanchard Valley Hospitalerum or plasma anion gap determinationOrdered By: Sandip Bunting on 10-67-5688Mtcqc gap [Moles/Vol]Serum or plasma anion gap determination6.0-15.0[facility] Blanchard Valley Hospitalodium [Moles/volume] in Serum or PlasmaOrdered By: Sandip Bunting on 76-82-5750Ogkdtq [Moles/Vol]Sodium [Moles/volume] in Serum or Nnonfm690-482BktexhntlOhio Valley Surgical HospitalUrea nitrogen [Mass/volume] in Serum or PlasmaOrdered By: Sandip Bunting on 66-79-2271Lzew nitrogen [Mass/Vol]Urea nitrogen [Mass/volume] in Serum or Plasma 09-28[facility] HospitalWBC Auto (Bld) [#/Vol]Ordered By: Sandip Aguirre on 79-71-7998PCF (Bld) [#/Vol]Leukocytes [#/volume] in Blood by Automated count4.1-10.5FCommunity Regional Medical CenterUrology Office/Clinic Noteon 56-18-4945Unexump Office/Clinic NoteUrology Office/Clinic Note Chief Complaint New [...] lumbar decompression w/ fusion 02/21/24. Discharged to [facility] for rehab. [place] [facility] [place]24 for LIS secondary to acute urinary [...] patient has indwelling cath Patient resides at [facility] for rehab. Reports his cath has been [...] perioperative complications. Lumbar spine [place]03/2024 [place] [facility] [place] -Schedule cystoscopy. The risks [...] BPH medications. -See #1 3. Anticoagulated (Z79.01: USP (current) use of anticoagulants) On Eliquis for [...] technique, single interspace; lumbar (wi (more content notincluded)...[facility] HospitalComment on above:Result Comment: Electronically Signed By: Melina LECHUGA, Ambar\.br\Date and Time Signed: 06/02/24 14:35 EDTB-Type Natriuretic Peptideon 05-28-2024 Natriuretic peptide B (Bld) [Mass/Vol]407.0 pg/mLHigh5-100The Unc Health Physician GroupComment on above:Result Comment: PERFORMED BY:[facility] [place], [place] [phone] MEDICAL DIRECTORJAJA CATES M.D.Performed By: #### BNP, ESR, CBC, CRP ####[facility] [address] [place] [address] [facility] Basophils Auto (Bld) [#/Vol]Ordered By: Sandip Bunting on 52-77-8232Popheqpfq (Bld) [#/Vol]Automated basophil count0.0-0.2FCommunity Regional Medical Center Basophils/100 WBC Auto (Bld)Ordered By: Sandip Bunting on 05-28-2024 Basophils/100 WBC (Bld)Automated basophil %.[facility] HospitalC reactive protein [Mass/volume] in Serum or PlasmaOrdered By: Sandip Bunting on 90-84-1633QFQ [Mass/Vol]C reactive protein [Mass/volume] in Serum or PlasmaHigh 0.0-0.5FCommunity Regional Medical CenterC-Reactive Proteinon 62-95-6538W- Reactive Protein8.8 mg/dLHigh0.0-0.5The Unc Health Physician GroupComment on above:Result Comment: PERFORMED BY:[address] [place], [place] [phone] MEDICAL DIRECTORJAJA WHITE M.D.Performed By: #### BNP, ESR, CBC, CRP ####[place] [id number] USAComplete Blood Count Auto Diff on 48-53-0732Fwbpckzyn (Bld) [#/Vol]0.1 10*3/uLNormal0.0-0.2The Unc Health Physician GroupComment on above:Performed By: #### BNP, ESR, CBC, CRP ####[place] [id number] [place] Basophils/100 WBC (Bld)1.0 %Normal.The Unc Health Physician GroupComment on above:Performed By: #### BNP, ESR, CBC, CRP ####[place] [id number] USAEosinophils (Bld) [#/Vol]0.5 10*3/uL High0.0-0.45The Un[facility] Health Physician GroupComment on above:Performed By: #### BNP, ESR, CBC, CRP ####[place] [id number] USAEosinophils/100 WBC (Bld)8.2 %Normal.[facility] Comment on above:Performed By: #### BNP, ESR, CBC, CRP ####[place] [address] USAErythrocyte distribution width (RBC) [Ratio]16.7 %High12.0-14.8The Unc Health Physician GroupComment on above: Performed By: #### BNP, ESR, CBC, CRP ####[place] [address] USAHematocrit (Bld) [Volume fraction]25.2 %Low 38.8-50.0The Un[facility] Health Physician GroupComment on above:Performed By: #### BNP, ESR, CBC, CRP ####[place] [address] USAHemoglobin (Bld) [Mass/Vol]8.6 g/dLLow13.0-17.0The Un[facility] Health Physician GroupComment on above:Performed By: #### BNP, ESR, CBC, CRP ####[place] [address] USALymphocytes (Bld) [#/Vol]1.5 10*3/uLNormal1.00-4.8The Un[facility] Health Physician GroupComment on above: Performed By: #### BNP, ESR, CBC, CRP ####[place] [address] USALymphocytes/100 WBC (Bld)26.1 %Normal.The Un[facility] Health Physician GroupComment on above:Performed By: #### BNP, ESR, CBC, CRP ####[place] [address] [facility]ENTERMCH (RBC) [Entitic mass]30.7 mwQmcmzq67.5-35.2The Unc Health Physician GroupComment on above:Performed By: #### BNP, ESR, CBC, CRP ####[place] [id number] [facility] CENTERMCV (RBC) [Entitic vol]90.1 fLNormal 83.5-101The Unc Health Physician GroupComment on above:Performed By: #### BNP, ESR, CBC, CRP ####[place] [id number] USAMean Corpuscular HGB Conc34.1 g/tIRwqiqq54.5-35.6The Unc Health Physician GroupComment on above:Performed By: #### BNP, ESR, CBC, CRP ####[place] [id number] [place] Monocytes (Bld) [#/Vol]0.4 10*3/uLNormal0.0-0.8[facility] Comment on above:Performed By: #### BNP, ESR, CBC, CRP ####[place] [address] USAMonocytes/100 WBC (Bld)6.5 % Normal.The Unc Health Physician GroupComment on above:Performed By: #### BNP, ESR, CBC, CRP ####[place] [address] USANeutrophils (Bld) [#/Vol]3.3 10*3/uLNormal1.8-7.7The Unc Health Physician GroupComment on above:Performed By: #### BNP, ESR, CBC, CRP ####[address] Neutrophils/100 WBC (Bld)58.2 %Normal.The Unc Health Physician GroupComment on above:Performed By: #### BNP, ESR, CBC, CRP ####[place] [address] USANRBC%0.1 /100{WBC}Normal0-0.5The Unc Health Physician GroupComment on above:Performed By: #### BNP, ESR, CBC, CRP ####[address] Platelet mean volume (Bld) [Entitic vol]7.9 fLNormal6.6-10.1The Unc Health Physician GroupComment on above:Performed By: #### BNP, ESR, CBC, CRP ####[address] Platelets (Bld) [#/Vol]186 10*3/jHVpnahp003-853Fcz [facility] Comment on above:Performed By: #### BNP, ESR, CBC, CRP ####[place] [address] USARBC (Bld) [#/Vol]2.80 10*6/uL Low3.90-5.60The Un[facility] Health Physician GroupComment on above:Performed By: #### BNP, ESR, CBC, CRP ####[place] [address] [place] [address] USAWBC (Bld) [#/Vol]5.7 10*3/uLNormal4.1-10.5The Unc Health Physician GroupComment on above:Performed By: #### BNP, ESR, CBC, CRP ####[address] [address] USAEosinophils Auto (Bld) [#/Vol]Ordered By: Sandip Bunting on 65-75-8779Yhynvjrvenc (Bld) [#/Vol] Automated eosinophil countHigh0.0-0.45[facility] Eosinophils/100 WBC Auto (Bld)Ordered By: Sandip Bunting on 05-28-2024 Eosinophils/100 WBC (Bld)Automated eosinophil %.[facility] HospitalErythrocyte Sedimentation Rateon 71-83-0516CSO (Bld) [Velocity]62 mm/hHigh 0-19The Unc Health Physician GroupComment on above:Result Comment: PERFORMED BY:[address] [place], [place] [phone] MEDICAL DIRECTORJAJA CATES M.D.Performed By: #### BNP, ESR, CBC, CRP ####[address] [address] USAErythrocyte distribution width Auto (RBC) [Ratio]Ordered By: Sandip Bunting on 53-68-7332Zgiruleircv distribution width (RBC) [Ratio]Erythrocyte distribution width [Ratio] by Automated bvdofPdqn87.0-14.8[facility] HospitalErythrocyte sedimentation rate by Photometric methodOrdered By: Sandip Bunting on 00-16-2964DIH Photometric method (Bld) [Velocity]Erythrocyte sedimentation rate by Photometric methodHigh0-19[facility] HospitalHematocrit Auto (Bld) [Volume fraction]Ordered By: Sandip Bunting on 56-74-4057Dxvvzqhyuq (Bld) [Volume fraction]Hematocrit [Volume Fraction] of Blood by Automated qjhgsMol48.8-50.0[facility] HospitalHemoglobin [Mass/volume] in BloodOrdered By: Sandip Bunting on 46-88-0251Sngxqotpig (Bld) [Mass/Vol]Hemoglobin [Mass/volume] in QczdrNop46.0-17.0[facility] HospitalLeukocytes [#/volume] corrected for nucleated erythrocytes in Blood by Automated counOrdered By: Sandip Bunting on 74-79-3170DFN corrected for nucl RBC Auto (Bld) [#/Vol]Leukocytes [#/volume] corrected for nucleated erythrocytes in Blood by Automated coun4.1-10.5FCommunity Regional Medical Center Lymphocytes Auto (Bld) [#/Vol]Ordered By: Sandip Bunting on 05-28-2024 Lymphocytes (Bld) [#/Vol]Lymphocytes [#/volume] in Blood by Automated count 1.00-4.8[facility] HospitalLymphocytes/100 WBC Auto (Bld)Ordered By: Sandip Bunting on 95-03-3506Aklrlcgkwhh/100 WBC (Bld)Lymphocytes/100 leukocytes in Blood by Automated count.[facility] HospitalMCH Auto (RBC) [Entitic mass]Ordered By: Sandip Bunting on 93-75-3680VVQ (RBC) [Entitic mass]MCH [Entitic mass] by Automated count27.5-35.2FCommunity Regional Medical CenterMCHC Auto (RBC) [Mass/Vol]Ordered By: Sandip Bunting on 02-99-8540GUXC (RBC) [Mass/Vol]MCHC [Mass/volume] by Automated count32.5-35.6FCommunity Regional Medical CenterMCV Auto (RBC) [Entitic vol]Ordered By: Sandip Bunting on 38-68-5039XOU (RBC) [Entitic vol]MCV [Entitic volume] by Automated count83.5-101 [facility] HospitalMonocytes Auto (Bld) [#/Vol]Ordered By: Sandip Bunting on 81-25-8285Zevnpmgvm (Bld) [#/Vol]Automated blood monocyte count 0.0-0.8[facility] HospitalMonocytes/100 WBC Auto (Bld)Ordered By: Sandip Bunting on 35-67-0050Bffbeoeld/100 WBC (Bld)Automated monocyte %. [facility] HospitalNatriuretic peptide B [Mass/Vol]Ordered By: Sandip Bunting on 18-48-3445Mcelmioakgc peptide B (Bld) [Mass/Vol]BNP ser/plas High5-100[facility] HospitalNeutrophils Auto (Bld) [#/Vol]Ordered By: Sandip Bunting on 00-75-8450Oevyvqbswsg (Bld) [#/Vol]Neutrophils [#/volume] in Blood by Automated count1.8-7.7FCommunity Regional Medical Center Neutrophils/100 WBC Auto (Bld)Ordered By: Sandip Bunting on 05-28-2024 Neutrophils/100 WBC (Bld)Automated neutrophil %.[facility] HospitalNucleated erythrocytes [Presence] in Blood by Automated countOrdered By: Sandip Bunting on 02-57-2503Dkaurngdg RBC Auto Ql (Bld)Nucleated erythrocytes [Presence] in Blood by Automated count0-0.5FCommunity Regional Medical Center Platelet mean volume Auto (Bld) [Entitic vol]Ordered By: Sandip Bunting on 34-46-5597Plwukkai mean volume (Bld) [Entitic vol]Platelet mean volume [Entitic volume] in Blood by Automated count6.6-10.1FCommunity Regional Medical Center Platelets Auto (Bld) [#/Vol]Ordered By: Sandip Bunting on 49-35-9620Ppejitaiu (Bld) [#/Vol]Platelets [#/volume] in Blood by Automated bedjh964-042OnpoaccatOhio Valley Surgical HospitalRBC Auto (Bld) [#/Vol]Ordered By: Sandip Bunting on 57-09-1024OMC (Bld) [#/Vol]Erythrocytes [#/volume] in Blood by Automated count Low3.90-5.60[facility] HospitalWBC Auto (Bld) [#/Vol]Ordered By: Sandip Bunting on 11-05-7641DWW (Bld) [#/Vol]Leukocytes [#/volume] in Blood by Automated count4.1-10.5FCommunity Regional Medical CenterB-Type Natriuretic Peptideon 05-78-5947Cvwtrtszdjw peptide B (Bld) [Mass/Vol]300.0 pg/mLHigh5-100 The Unc Health Physician GroupComment on above:Result Comment: PERFORMED BY:[place] [address] [place], [place] [phone] MEDICAL DIRECTORJAJA CATES M.D.Performed By: #### BNP, ESR, CRP, CBC ####[address] [address] USABasophils Auto (Bld) [#/Vol]Ordered By: Sandip Bunting on 05-21-2024 Basophils (Bld) [#/Vol]Automated basophil count0.0-0.2FCommunity Regional Medical CenterBasophils/100 WBC Auto (Bld)Ordered By: Sandip Bunting on 05-21-2024 Basophils/100 WBC (Bld)Automated basophil %.[facility] HospitalC reactive protein [Mass/volume] in Serum or PlasmaOrdered By: Sandip Bunting on 62-09-7278HCJ [Mass/Vol]C reactive protein [Mass/volume] in Serum or PlasmaHigh 0.0-0.5FCommunity Regional Medical CenterC-Reactive Proteinon 50-96-2768F- Reactive Protein3.8 mg/dLHigh0.0-0.5The Unc Health Physician GroupComment on above:Result Comment: PERFORMED BY:[place] [address] [place], [place] [phone] MEDICAL DIRECTORJAJA WHITE M.D.Performed By: #### BNP, ESR, CRP, CBC ####[address] [address] USAComplete Blood Count Auto Diff on 76-80-1819Wlwmoxpbr (Bld) [#/Vol]0.0 10*3/uLNormal0.0-0.2The Unc Health Physician GroupComment on above:Performed By: #### BNP, ESR, CRP, CBC ####[address] [address] [place] Basophils/100 WBC (Bld)1.1 %Normal.The [facility] Health Physician GroupComment on above:Performed By: #### BNP, ESR, CRP, CBC ####[place] [address] USAEosinophils (Bld) [#/Vol]0.4 10*3/uL Normal0.0-0.45The Unc Health Physician GroupComment on above:Performed By: #### BNP, ESR, CRP, CBC ####[place] [address] USAEosinophils/100 WBC (Bld)8.7 %Normal.[facility] Comment on above:Performed By: #### BNP, ESR, CRP, CBC ####[place] [address] USAErythrocyte distribution width (RBC) [Ratio]16.4 %High12.0-14.8The Unc Health Physician GroupComment on above: Performed By: #### BNP, ESR, CRP, CBC ####[place] [address] USAHematocrit (Bld) [Volume fraction]23.8 %Low 38.8-50.0The Unc Health Physician GroupComment on above:Performed By: #### BNP, ESR, CRP, CBC ####[place] [address] USAHemoglobin (Bld) [Mass/Vol]7.9 g/dLLow13.0-17.0The Un[facility] Health Physician GroupComment on above:Performed By: #### BNP, ESR, CRP, CBC ####[place] [id number] USALymphocytes (Bld) [#/Vol]1.5 10*3/uLNormal1.00-4.8The Un[facility] Health Physician GroupComment on above: Performed By: #### BNP, ESR, CRP, CBC ####[place] [address] USALymphocytes/100 WBC (Bld)36.1 %Normal.The [facility] Health Physician GroupComment on above:Performed By: #### BNP, ESR, CRP, CBC ####[address] [place] [address] USAMCH (RBC) [Entitic mass]30.4 rnXljaqo67.5-35.2The Unc Health Physician GroupComment on above:Performed By: #### BNP, ESR, CRP, CBC ####[address] (RBC) [Entitic vol]90.8 fLNormal 83.5-101The Un[facility] Health Physician GroupComment on above:Performed By: #### BNP, ESR, CRP, CBC ####[place] [address] USAMean Corpuscular HGB Conc33.4 g/aXTcnyfm84.5-35.6The Un[facility] Health Physician GroupComment on above:Performed By: #### BNP, ESR, CRP, CBC ####[place] [address] [place] Monocytes (Bld) [#/Vol]0.4 10*3/uLNormal0.0-0.8[facility] Comment on above:Performed By: #### BNP, ESR, CRP, CBC ####[place] [address] USAMonocytes/100 WBC (Bld)9.5 % Normal.The Un[facility] Health Physician GroupComment on above:Performed By: #### BNP, ESR, CRP, CBC ####[place] [address] USANeutrophils (Bld) [#/Vol]1.9 10*3/uLNormal1.8-7.7The Un[facility] Health Physician GroupComment on above:Performed By: #### BNP, ESR, CRP, CBC ####[place] [address] [place] Neutrophils/100 WBC (Bld)44.6 %Normal.The [facility] Health Physician GroupComment on above:Performed By: #### BNP, ESR, CRP, CBC ####[place] [address] USANRBC%0.2 /100{WBC}Normal0-0.5The Unc Health Physician GroupComment on above:Performed By: #### BNP, ESR, CRP, CBC ####[address] Platelet mean volume (Bld) [Entitic vol]7.5 fLNormal6.6-10.1The Unc Health Physician GroupComment on above:Performed By: #### BNP, ESR, CRP, CBC ####[address] Platelets (Bld) [#/Vol]185 10*3/oMSlgqaz809-327Wkk [facility] Comment on above:Performed By: #### BNP, ESR, CRP, CBC ####[place] [address] USARBC (Bld) [#/Vol]2.62 10*6/uL Low3.90-5.60The Un[facility] Health Physician GroupComment on above:Performed By: #### BNP, ESR, CRP, CBC ####[place] [address] USAWBC (Bld) [#/Vol]4.2 10*3/uLNormal4.1-10.5The Un[facility] Health Physician GroupComment on above:Performed By: #### BNP, ESR, CRP, CBC ####[place] [address] USAEosinophils Auto (Bld) [#/Vol]Ordered By: Sandip Aguirre on 11-78-7390Yfbpkhxifax (Bld) [#/Vol] Automated eosinophil count0.0-0.45[facility] Eosinophils/100 WBC Auto (Bld)Ordered By: Sandip Aguirre on 05-21-2024 Eosinophils/100 WBC (Bld)Automated eosinophil %.[facility] HospitalErythrocyte Sedimentation Rateon 64-17-0700FJQ (Bld) [Velocity]35 mm/hHigh 0-19The Unc Health Physician GroupComment on above:Result Comment: PERFORMED BY:[address] [place], [place] [phone] MEDICAL DIRECTORJAJA CATES M.D.Performed By: #### BNP, ESR, CRP, CBC ####[facility] [address] [place] [address] [facility] CENTERErythrocyte distribution width Auto (RBC) [Ratio]Ordered By: Sandip Bunsantiago on 59-25-4760Oevfhosxsnh distribution width (RBC) [Ratio]Erythrocyte distribution width [Ratio] by Automated todgvKmws25.0-14.8[facility] HospitalErythrocyte sedimentation rate by Photometric methodOrdered By: Sandip Bunting on 28-93-6505EJK Photometric method (Bld) [Velocity]Erythrocyte sedimentation rate by Photometric methodHigh0-19[facility] HospitalHematocrit Auto (Bld) [Volume fraction]Ordered By: Sandip Bunting on 37-63-9625Lfxsxoqopy (Bld) [Volume fraction]Hematocrit [Volume Fraction] of Blood by Automated xyajnYug71.8-50.0[facility] HospitalHemoglobin [Mass/volume] in BloodOrdered By: Sandip Bunting on 77-04-5722Rpemkdyjfd (Bld) [Mass/Vol]Hemoglobin [Mass/volume] in TvopvAyz26.0-17.0[facility] HospitalInfectious Disease Office/Clinic Noteon 19-34-9800Jthffufftq Disease Office/Clinic NoteAssessment/Plan 1. Surgical wound dehiscence Plan: This time we will send orders over to discontinue midline. Would like repeat lab work on 05/28. CBC/basic metabolic profile, CRP, and sed rate. Will call results. Will see how he does off antibiotics. Encouraged to follow-up with neurosurgeon regarding his back.Also would be a good idea to connect with mold sprayer he continues to have mildly elevated creatinine. [...] should have completed treatment on 05/17/2024. This continuity writer did review most recent lab work [...] the andre [1] he had surgery at [facility] in [place].Postoperatively gained a lot of fluid weight. Also has catheter for urinary retention. Has chronic lymphedema uses pumps at home. Admitted to [facility] had MRI that showed fluid collection. History ofA-fib. Surgery was not done there due to need for cardiology services. Transferred to [facility] where he connected with cardiology. Actually went [...] Daily atorvastatin 40 m (more content not included)...[facility] HospitalLeukocytes [#/volume] corrected for nucleated erythrocytes in Blood by Automated counOrdered By: Sandip Aguirre on 11-74-0246FHW corrected for nucl RBC Auto (Bld) [#/Vol]Leukocytes [#/volume] corrected for nucleated erythrocytes in Blood by Automated coun4.1-10.5FCommunity Regional Medical CenterLymphocytes Auto (Bld) [#/Vol]Ordered By: Sandip Aguirre on 12-46-6106Inhmkntaqgx (Bld) [#/Vol]Lymphocytes [#/volume] in Blood by Automated count1.00-4.8[facility] HospitalLymphocytes/100 WBC Auto (Bld)Ordered By: Sandip Bunting on 44-12-3959Mqoavvgnzxx/100 WBC (Bld)Lymphocytes/100 leukocytes in Blood by Automated count.[facility] HospitalMCH Auto (RBC) [Entitic mass] Ordered By: Sandip Bunting on 30-90-5460KPZ (RBC) [Entitic mass]MCH [Entitic mass] by Automated count27.5-35.2FCommunity Regional Medical CenterMCHC Auto (RBC) [Mass/Vol]Ordered By: Sandip Bunting on 21-40-8554HZSH (RBC) [Mass/Vol] MCHC [Mass/volume] by Automated count32.5-35.6FCommunity Regional Medical Center MCV Auto (RBC) [Entitic vol]Ordered By: Sandip Bunting on 13-74-6423AYZ (RBC) [Entitic vol]MCV [Entitic volume] by Automated count83.5-101[facility] HospitalMonocytes Auto (Bld) [#/Vol]Ordered By: Sandip Bunting on 49-35-0852Kvjnaxidj (Bld) [#/Vol]Automated blood monocyte count0.0-0.8[facility] HospitalMonocytes/100 WBC Auto (Bld)Ordered By: Sandip Bunting on 83-22-0282Cetnrjfgx/100 WBC (Bld)Automated monocyte %.[facility] HospitalNatriuretic peptide B [Mass/Vol]Ordered By: Sandip Bunting on 10-96-3620Uzzdvetsqso peptide B (Bld) [Mass/Vol]BNP ser/plasHigh5-100[facility] HospitalNeutrophils Auto (Bld) [#/Vol]Ordered By: Sandip Bunting on 30-93-1320Ojtgfrstiiq (Bld) [#/Vol]Neutrophils [#/volume] in Blood by Automated count1.8-7.7FCommunity Regional Medical CenterNeutrophils/100 WBC Auto (Bld)Ordered By: Sandip Bunting on 39-01-0250Ntsldnyfkae/100 WBC (Bld)Automated neutrophil %.[facility] HospitalNucleated erythrocytes [Presence] in Blood by Automated countOrdered By: Sandip Bunting on 35-81-6249Bupgtvlai RBC Auto Ql (Bld)Nucleated erythrocytes [Presence] in Blood by Automated count0-0.5 [facility] HospitalPlatelet mean volume Auto (Bld) [Entitic vol] Ordered By: Sandip Bunting on 61-86-3895Mwmqpepb mean volume (Bld) [Entitic vol] Platelet mean volume [Entitic volume] in Blood by Automated count6.6-10.1 [facility] HospitalPlatelets Auto (Bld) [#/Vol]Ordered By: Sandip Bunting on 22-63-5763Ecoqcpwos (Bld) [#/Vol]Platelets [#/volume] in Blood by Automated vemso973-597RttkykoqiOhio Valley Surgical HospitalRBC Auto (Bld) [#/Vol] Ordered By: Sandip Bunting on 40-65-6960KHP (Bld) [#/Vol]Erythrocytes [#/volume] in Blood by Automated countLow3.90-5.60[facility] HospitalWBC Auto (Bld) [#/Vol]Ordered By: Sandip Bunting on 40-39-7539YZT (Bld) [#/Vol] Leukocytes [#/volume] in Blood by Automated count4.1-10.5FCommunity Regional Medical CenterB-Type Natriuretic Peptideon 78-14-4039Otktogwndyn peptide B (Bld) [Mass/Vol]322.0 pg/mLHigh5-100The Unc Health Physician GroupComment on above: Result Comment: PERFORMED BY:[facility] [place], [place] [phone] MEDICAL DIRECTORJAJA WHITE M.D.Performed By: #### CBC, CRP, BNP, ESR ####[address] [place] [address] USABasophils Auto (Bld) [#/Vol] Ordered By: Sandip Bunting on 98-51-5927Jsmymowqw (Bld) [#/Vol]Automated basophil count0.0-0.2FCommunity Regional Medical CenterBasophils/100 WBC Auto (Bld)Ordered By: Sandip Bunting on 68-58-1002Sxuqlteaj/100 WBC (Bld)Automated basophil %.[facility] HospitalC reactive protein [Mass/volume] in Serum or PlasmaOrdered By: Sandip Aguirre on 35-93-8468XQJ [Mass/Vol]C reactive protein [Mass/volume] in Serum or PlasmaHigh0.0-0.5FCommunity Regional Medical CenterC-Reactive Proteinon 85-77-3059S-Reactive Protein6.0 mg/dLHigh0.0-0.5The [facility]c Health Physician GroupComment on above:Result Comment: PERFORMED BY:[address] [place], [place] [phone] MEDICAL DIRECTORJAJA CATES M.D.Performed By: #### CBC, CRP, BNP, ESR ####[place] [id number] [facility] Complete Blood Count Auto Diffon 24-76-1914Zzscfyeka (Bld) [#/Vol]0.0 10*3/uL Normal0.0-0.2The [facility] Health Physician GroupComment on above:Performed By: #### CBC, CRP, BNP, ESR ####[address] [address] USABasophils/100 WBC (Bld)0.9 %Normal.[facility] Comment on above:Performed By: #### CBC, CRP, BNP, ESR ####[address] [address] USAEosinophils (Bld) [#/Vol]0.5 10*3/uLHigh0.0-0.45The Unc Health Physician GroupComment on above:Performed By: #### CBC, CRP, BNP, ESR ####[address] [address] USAEosinophils/100 WBC (Bld)10.9 %Normal.The Unc Health Physician GroupComment on above:Performed By: #### CBC, CRP, BNP, ESR ####[address] [address] [facility] Erythrocyte distribution width (RBC) [Ratio]16.9 %High12.0-14.8The Unc Health Physician GroupComment on above:Performed By: #### CBC, CRP, BNP, ESR ####[place] [address] [place] Hematocrit (Bld) [Volume fraction]24.8 %Low38.8-50.0The Unc Health Physician GroupComment on above:Performed By: #### CBC, CRP, BNP, ESR ####[place] [address] USAHemoglobin (Bld) [Mass/Vol]8.3 g/dLLow13.0-17.0The Unc Health Physician GroupComment on above: Performed By: #### CBC, CRP, BNP, ESR ####[place] [address] USALymphocytes (Bld) [#/Vol]1.4 10*3/uLNormal 1.00-4.8The Unc Health Physician GroupComment on above:Performed By: #### CBC, CRP, BNP, ESR ####[place] [address] USALymphocytes/100 WBC (Bld)29.6 %Normal.[facility] Comment on above:Performed By: #### CBC, CRP, BNP, ESR ####[place] [id number] USAMCH (RBC) [Entitic mass]30.4 dfKwbutp89.5-35.2The Unc Health Physician GroupComment on above:Performed By: #### CBC, CRP, BNP, ESR ####[place] [address] USAMCV (RBC) [Entitic vol]90.6 mQMkbyor37.5-101The Unc Health Physician GroupComment on above:Performed By: #### CBC, CRP, BNP, ESR ####[place] [address] USAMean Corpuscular HGB Conc33.5 g/yJYtugno78.5-35.6The Unc Health Physician GroupComment on above:Performed By: #### CBC, CRP, BNP, ESR ####[place] [address] USAMonocytes (Bld) [#/Vol]0.4 10*3/uL Normal0.0-0.8The Unc Health Physician GroupComment on above:Performed By: #### CBC, CRP, BNP, ESR ####[place] [address] USAMonocytes/100 WBC (Bld)9.0 %Normal.[facility] Comment on above:Performed By: #### CBC, CRP, BNP, ESR ####[place] [address] USANeutrophils (Bld) [#/Vol]2.3 10*3/uLNormal1.8-7.7The Unc Health Physician GroupComment on above:Performed By: #### CBC, CRP, BNP, ESR ####[place] [address] USANeutrophils/100 WBC (Bld)49.6 %Normal.The Unc Health Physician GroupComment on above:Performed By: #### CBC, CRP, BNP, ESR ####[place] [id number] USANRBC% 0.1 /100{WBC}Normal0-0.5The Unc Health Physician GroupComment on above:Performed By: #### CBC, CRP, BNP, ESR ####[place] [id number] USAPlatelet mean volume (Bld) [Entitic vol]7.7 fLNormal 6.6-10.1The Unc Health Physician GroupComment on above:Performed By: #### CBC, CRP, BNP, ESR ####[place] [address] USAPlatelets (Bld) [#/Vol]207 10*3/rUAmuzja088-129Elu Unc Health Physician GroupComment on above:Performed By: #### CBC, CRP, BNP, ESR ####[address] [address] USARBC (Bld) [#/Vol]2.73 10*6/uLLow3.90-5.60The Unc Health Physician GroupComment on above:Performed By: #### CBC, CRP, BNP, ESR ####[address] [address] USAWBC (Bld) [#/Vol]4.7 10*3/uLNormal4.1-10.5The Unc Health Physician GroupComment on above:Performed By: #### CBC, CRP, BNP, ESR ####[address] [address] [place] Eosinophils Auto (Bld) [#/Vol]Ordered By: Sandip Bunting on 05-14-2024 Eosinophils (Bld) [#/Vol]Automated eosinophil countHigh0.0-0.45[facility] HospitalEosinophils/100 WBC Auto (Bld)Ordered By: Sandip Bunting on 78-79-2744Lxytlsvaruu/100 WBC (Bld)Automated eosinophil %.[facility] HospitalErythrocyte Sedimentation Rateon 82-83-0652WBE (Bld) [Velocity]59 mm/hHigh0-19The Unc Health Physician GroupComment on above:Result Comment: PERFORMED BY:[address] [place], [place] [phone] MEDICAL DIRECTORJAJA CATES M.D. Performed By: #### CBC, CRP, BNP, ESR ####[address] [address] USAErythrocyte distribution width Auto (RBC) [Ratio]Ordered By: Sandip Bunting on 49-17-6073Wpcwnbhjbyu distribution width (RBC) [Ratio]Erythrocyte distribution width [Ratio] by Automated countHigh 12.0-14.8[facility] HospitalErythrocyte sedimentation rate by Photometric methodOrdered By: Sandip Bunting on 56-55-4468KZT Photometric method (Bld) [Velocity]Erythrocyte sedimentation rate by Photometric methodHigh0-19 [facility] HospitalHematocrit Auto (Bld) [Volume fraction]Ordered By: Sandip Bunting on 86-61-7574Kflgqsikpt (Bld) [Volume fraction]Hematocrit [Volume Fraction] of Blood by Automated ytjlaTca79.8-50.0[facility] HospitalHemoglobin [Mass/volume] in BloodOrdered By: Sandip Bunting on 62-24-8871Csgmugritr (Bld) [Mass/Vol]Hemoglobin [Mass/volume] in BloodLow 13.0-17.0[facility] HospitalLeukocytes [#/volume] corrected for nucleated erythrocytes in Blood by Automated counOrdered By: Sandip Bunting on 98-96-0642JGK corrected for nucl RBC Auto (Bld) [#/Vol]Leukocytes [#/volume] corrected for nucleated erythrocytes in Blood by Automated coun4.1-10.5FCommunity Regional Medical CenterLymphocytes Auto (Bld) [#/Vol]Ordered By: Sandip Bunting on 88-71-8101Hmwfcmdhtpn (Bld) [#/Vol]Lymphocytes [#/volume] in Blood by Automated count1.00-4.8[facility] HospitalLymphocytes/100 WBC Auto (Bld)Ordered By: Sandip Bunting on 33-38-8022Unrjwfdfwwq/100 WBC (Bld) Lymphocytes/100 leukocytes in Blood by Automated count.[facility] HospitalH Auto (RBC) [Entitic mass]Ordered By: Sandip Bunting on 19-78-4706GKI (RBC) [Entitic mass]MCH [Entitic mass] by Automated count27.5-35.2 [facility] HospitalMCHC Auto (RBC) [Mass/Vol]Ordered By: Sandip Bunting on 26-79-7566RUVI (RBC) [Mass/Vol]MCHC [Mass/volume] by Automated count 32.5-35.6FCommunity Regional Medical CenterMCV Auto (RBC) [Entitic vol]Ordered By: Sandip Bunting on 68-73-5879HPG (RBC) [Entitic vol]MCV [Entitic volume] by Automated count83.5-101[facility] HospitalMonocytes Auto (Bld) [#/Vol]Ordered By: Sandip Bunting on 41-16-4210Vwanlyzkg (Bld) [#/Vol]Automated blood monocyte count0.0-0.8[facility] HospitalMonocytes/100 WBC Auto (Bld)Ordered By: Sandip Bunting on 06-65-9950Nichdkpsr/100 WBC (Bld) Automated monocyte %.[place] [facility] HospitalNatriuretic peptide B [Mass/Vol]Ordered By: Sandip Bunting on 97-34-7263Hazksfdxhdx peptide B (Bld) [Mass/Vol]BNP ser/plasHigh5-100[facility] HospitalNeutrophils Auto (Bld) [#/Vol]Ordered By: Sandip Bunting on 67-81-2929Rdlytmrbiuj (Bld) [#/Vol] Neutrophils [#/volume] in Blood by Automated count1.8-7.7FCommunity Regional Medical CenterNeutrophils/100 WBC Auto (Bld)Ordered By: Sandip Bunting on 43-87-0784Pzkklzipgfz/100 WBC (Bld)Automated neutrophil %.[facility] HospitalNucleated erythrocytes [Presence] in Blood by Automated count Ordered By: Sandip Bunting on 87-33-4997Hfedyyutr RBC Auto Ql (Bld)Nucleated erythrocytes [Presence] in Blood by Automated count0-0.5FCommunity Regional Medical CenterPlatelet mean volume Auto (Bld) [Entitic vol]Ordered By: Sandip Bunting on 81-22-2332Vdkucmdc mean volume (Bld) [Entitic vol]Platelet mean volume [Entitic volume] in Blood by Automated count6.6-10.1FCommunity Regional Medical CenterPlatelets Auto (Bld) [#/Vol]Ordered By: Sandip Bunting on 71-73-5623Vsauvwbjg (Bld) [#/Vol]Platelets [#/volume] in Blood by Automated -059AeuokrchyOhio Valley Surgical HospitalRBC Auto (Bld) [#/Vol]Ordered By: Sandip Bunting on 34-34-6568LJX (Bld) [#/Vol]Erythrocytes [#/volume] in Blood by Automated countLow3.90-5.60[facility] HospitalWBC Auto (Bld) [#/Vol]Ordered By: Sandip Bunting on 57-46-5565LOE (Bld) [#/Vol]Leukocytes [#/volume] in Blood by Automated count4.1-10.5FCommunity Regional Medical Center B-Type Natriuretic Peptideon 62-78-4649Xktyppmwcng peptide B (Bld) [Mass/Vol] 356.0 pg/mLHigh5-100The Unc Health Physician GroupComment on above:Result Comment: PERFORMED BY:[address] [place], [place] [phone] MEDICAL DIRECTORJAJA CATES M.D. Performed By: #### ESR, CRP, BNP, CBC ####[address] [place] [address] USABasophils Auto (Bld) [#/Vol]Ordered By: Sandip Bunting on 41-28-9911Wmbsqolrn (Bld) [#/Vol]Automated basophil count0.0-0.2 [facility] HospitalBasophils/100 WBC Auto (Bld)Ordered By: Sandip Bunting on 68-07-0636Ewykpdjmh/100 WBC (Bld)Automated basophil %.[facility] HospitalC reactive protein [Mass/volume] in Serum or Plasma Ordered By: Sandip Bunting on 81-87-9315AAR [Mass/Vol]C reactive protein [Mass/volume] in Serum or PlasmaHigh0.0-0.5FCommunity Regional Medical CenterC- Reactive Proteinon 18-71-9650L-Reactive Protein5.8 mg/dLHigh0.0-0.5The Unc Health Physician GroupComment on above:Result Comment: PERFORMED BY:[address] [place], [place] [phone] MEDICAL DIRECTORJAJA CATES M.D.Performed By: #### ESR, CRP, BNP, CBC ####[address] [address] [facility] Complete Blood Count Auto Diffon 75-40-1557Mjnijqkun (Bld) [#/Vol]0.1 10*3/uL Normal0.0-0.2The Unc Health Physician GroupComment on above:Performed By: #### ESR, CRP, BNP, CBC ####[place] [address] USABasophils/100 WBC (Bld)1.3 %Normal.[facility] Comment on above:Performed By: #### ESR, CRP, BNP, CBC ####[place] [address] USAEosinophils (Bld) [#/Vol]0.4 10*3/uLNormal0.0-0.45The Unc Health Physician GroupComment on above:Performed By: #### ESR, CRP, BNP, CBC ####[place] [address] USAEosinophils/100 WBC (Bld)7.9 %Normal.The Unc Health Physician GroupComment on above:Performed By: #### ESR, CRP, BNP, CBC ####[address] Erythrocyte distribution width (RBC) [Ratio]17.2 %High12.0-14.8The Unc Health Physician GroupComment on above:Performed By: #### ESR, CRP, BNP, CBC ####[place] [address] [place] Hematocrit (Bld) [Volume fraction]26.9 %Low38.8-50.0The Unc Health Physician GroupComment on above:Performed By: #### ESR, CRP, BNP, CBC ####[place] [address] USAHemoglobin (Bld) [Mass/Vol]8.8 g/dLLow13.0-17.0The Unc Health Physician GroupComment on above: Performed By: #### ESR, CRP, BNP, CBC ####[place] [address] USALymphocytes (Bld) [#/Vol]1.3 10*3/uLNormal 1.00-4.8The Unc Health Physician GroupComment on above:Performed By: #### ESR, CRP, BNP, CBC ####[id number] USALymphocytes/100 WBC (Bld)29.0 %Normal.[facility] Comment on above:Performed By: #### ESR, CRP, BNP, CBC ####[address] [facility] (RBC) [Entitic mass]30.0 cfLxnwfq62.5-35.2The Unc Health Physician GroupComment on above:Performed By: #### ESR, CRP, BNP, CBC ####[address] [facility] ([facility]BC) [Entitic vol]91.3 iMMiyaeb17.5-101The Unc Health Physician GroupComment on above:Performed By: #### ESR, CRP, BNP, CBC ####[place] [address] USAMean Corpuscular HGB Conc32.9 g/oNPtgrki37.5-35.6The Unc Health Physician GroupComment on above:Performed By: #### ESR, CRP, BNP, CBC ####[place] [address] USAMonocytes (Bld) [#/Vol]0.3 10*3/uL Normal0.0-0.8The Unc Health Physician GroupComment on above:Performed By: #### ESR, CRP, BNP, CBC ####[place] [address] USAMonocytes/100 WBC (Bld)6.4 %Normal.[facility] Comment on above:Performed By: #### ESR, CRP, BNP, CBC ####[place] [address] USANeutrophils (Bld) [#/Vol]2.6 10*3/uLNormal1.8-7.7The Unc Health Physician GroupComment on above:Performed By: #### ESR, CRP, BNP, CBC ####[place] [address] USANeutrophils/100 WBC (Bld)55.4 %Normal.The Unc Health Physician GroupComment on above:Performed By: #### ESR, CRP, BNP, CBC ####[place] [address] USANRBC% 0.1 /100{WBC}Normal0-0.5The Unc Health Physician GroupComment on above:Performed By: #### ESR, CRP, BNP, CBC ####[place] [address] USAPlatelet mean volume (Bld) [Entitic vol]7.6 fLNormal 6.6-10.1The Unc Health Physician GroupComment on above:Performed By: #### ESR, CRP, BNP, CBC ####[place] [address] USAPlatelets (Bld) [#/Vol]192 10*3/zNDwcvmu760-267Wjp Unc Health Physician GroupComment on above:Performed By: #### ESR, CRP, BNP, CBC ####[place] [address] USARBC (Bld) [#/Vol]2.95 10*6/uLLow3.90-5.60The Unc Health Physician GroupComment on above:Performed By: #### ESR, CRP, BNP, CBC ####[place] [address] USAWBC (Bld) [#/Vol]4.7 10*3/uLNormal4.1-10.5The Unc Health Physician GroupComment on above:Performed By: #### ESR, CRP, BNP, CBC ####[place] [address] [place] Eosinophils Auto (Bld) [#/Vol]Ordered By: Sandip Aguirre on 05-07-2024 Eosinophils (Bld) [#/Vol]Automated eosinophil count0.0-0.45[facility] HospitalEosinophils/100 WBC Auto (Bld)Ordered By: Sandip Aguirre on 65-03-8477Dpirurrivbo/100 WBC (Bld)Automated eosinophil %.[facility] HospitalErythrocyte Sedimentation Rateon 66-39-5729NFN (Bld) [Velocity]65 mm/hHigh0-19The Unc Health Physician GroupComment on above:Result Comment: PERFORMED BY:[facility] [place], [place] [phone] MEDICAL DIRECTORJAJA CATES M.D. Performed By: #### ESR, CRP, BNP, CBC ####[facility] [place] [address] USAErythrocyte distribution width Auto (RBC) [Ratio]Ordered By: Sandip Bunting on 29-09-4464Vfgirwqrvwe distribution width (RBC) [Ratio]Erythrocyte distribution width [Ratio] by Automated countHigh 12.0-14.8[facility] HospitalErythrocyte sedimentation rate by Photometric methodOrdered By: Sandip Bunting on 67-61-2385GTN Photometric method (Bld) [Velocity]Erythrocyte sedimentation rate by Photometric methodHigh0-19 [facility] HospitalHematocrit Auto (Bld) [Volume fraction]Ordered By: Sandip Bunting on 80-82-2585Rzomepxcwc (Bld) [Volume fraction]Hematocrit [Volume Fraction] of Blood by Automated oyanaFnz35.8-50.0[facility] HospitalHemoglobin [Mass/volume] in BloodOrdered By: Sandip Bunting on 85-35-2504Rhflsnmqcx (Bld) [Mass/Vol]Hemoglobin [Mass/volume] in BloodLow 13.0-17.0[facility] HospitalLeukocytes [#/volume] corrected for nucleated erythrocytes in Blood by Automated counOrdered By: Sandip Bunting on 07-75-6822AVE corrected for nucl RBC Auto (Bld) [#/Vol]Leukocytes [#/volume] corrected for nucleated erythrocytes in Blood by Automated coun4.1-10.5FCommunity Regional Medical CenterLymphocytes Auto (Bld) [#/Vol]Ordered By: Sandip Bunting on 77-28-8745Tqsvjvqxhqr (Bld) [#/Vol]Lymphocytes [#/volume] in Blood by Automated count1.00-4.8[facility] HospitalLymphocytes/100 WBC Auto (Bld)Ordered By: Sandip Bunting on 96-54-7031Usjyseqkuxc/100 WBC (Bld) Lymphocytes/100 leukocytes in Blood by Automated count.[facility] HospitalH Auto (RBC) [Entitic mass]Ordered By: Sandip Bunting on 49-18-3975IFY (RBC) [Entitic mass]MCH [Entitic mass] by Automated count27.5-35.2 [facility] HospitalMCHC Auto (RBC) [Mass/Vol]Ordered By: Sandip Bunting on 20-80-4281MTFD (RBC) [Mass/Vol]MCHC [Mass/volume] by Automated count 32.5-35.6FCommunity Regional Medical CenterMCV Auto (RBC) [Entitic vol]Ordered By: Sandip Bunting on 25-68-8433XHV (RBC) [Entitic vol]MCV [Entitic volume] by Automated count83.5-101[facility] HospitalMonocytes Auto (Bld) [#/Vol]Ordered By: Sandip Bunting on 98-09-4178Cdmenupus (Bld) [#/Vol]Automated blood monocyte count0.0-0.8[facility] HospitalMonocytes/100 WBC Auto (Bld)Ordered By: Sandip Bunting on 36-98-4760Wukucpmol/100 WBC (Bld) Automated monocyte %.[facility] HospitalNatriuretic peptide B [Mass/Vol]Ordered By: Sandip Bunting on 22-68-6724Dfirmywayri peptide B (Bld) [Mass/Vol]BNP ser/plasHigh5-100[facility] HospitalNeutrophils Auto (Bld) [#/Vol]Ordered By: Sandip Bunting on 30-69-5174Vloghjfnyjp (Bld) [#/Vol] Neutrophils [#/volume] in Blood by Automated count1.8-7.7FCommunity Regional Medical CenterNeutrophils/100 WBC Auto (Bld)Ordered By: Sandip Bunting on 44-42-0201Tikyrwxiajb/100 WBC (Bld)Automated neutrophil %.[facility] HospitalNucleated erythrocytes [Presence] in Blood by Automated count Ordered By: Sandip Bunting on 96-13-0549Qldiqtkcj RBC Auto Ql (Bld)Nucleated erythrocytes [Presence] in Blood by Automated count0-0.5FCommunity Regional Medical CenterPlatelet mean volume Auto (Bld) [Entitic vol]Ordered By: Sandip Bunting on 41-20-9921Kdgpkopn mean volume (Bld) [Entitic vol]Platelet mean volume [Entitic volume] in Blood by Automated count6.6-10.1FCommunity Regional Medical CenterPlatelets Auto (Bld) [#/Vol]Ordered By: Sandip Bunting on 67-93-6037Qstxpldwp (Bld) [#/Vol]Platelets [#/volume] in Blood by Automated zylyv079-834MfbpawazfOhio Valley Surgical HospitalRBC Auto (Bld) [#/Vol]Ordered By: Sandip Bunting on 61-32-8207ZYP (Bld) [#/Vol]Erythrocytes [#/volume] in Blood by Automated countLow3.90-5.60[facility] HospitalWBC Auto (Bld) [#/Vol]Ordered By: Sandip Bunting on 25-48-1708NHL (Bld) [#/Vol]Leukocytes [#/volume] in Blood by Automated count4.1-10.5FCommunity Regional Medical Center B-Type Natriuretic Peptideon 69-15-8021Dmojxpcpurk peptide B (Bld) [Mass/Vol] 269.0 pg/mLHigh5-100The Unc Health Physician GroupComment on above:Result Comment: PERFORMED BY:[facility] [place], [place] [phone] MEDICAL DIRECTORJAJA CATES M.D. Performed By: #### CBC, BNP, ESR, CRP ####[address] [place] [address] USABasophils Auto (Bld) [#/Vol]Ordered By: Sandip Bunting on 47-03-3663Jdaahmnec (Bld) [#/Vol]Automated basophil count0.0-0.2 [facility] HospitalBasophils/100 WBC Auto (Bld)Ordered By: Sandip Bunting on 85-22-0784Zyabcwyyk/100 WBC (Bld)Automated basophil %.[facility] HospitalC reactive protein [Mass/volume] in Serum or Plasma Ordered By: Sandip Aguirre on 10-11-4873ZLJ [Mass/Vol]C reactive protein [Mass/volume] in Serum or PlasmaHigh0.0-0.5FCommunity Regional Medical CenterC- Reactive Proteinon 88-96-3541Z-Reactive Protein4.6 mg/dLHigh0.0-0.5The Unc Health Physician GroupComment on above:Result Comment: PERFORMED BY:[address] [place], [place] [phone] MEDICAL DIRECTORJAJA CATES M.D.Performed By: #### CBC, BNP, ESR, CRP ####[address] [id number] [facility] Complete Blood Count Auto Diffon 89-54-5546Nobpqevkg (Bld) [#/Vol]0.1 10*3/uL Normal0.0-0.2The Unc Health Physician GroupComment on above:Performed By: #### CBC, BNP, ESR, CRP ####[address] [address] USABasophils/100 WBC (Bld)1.3 %Normal.[facility] Comment on above:Performed By: #### CBC, BNP, ESR, CRP ####[address] [address] USAEosinophils (Bld) [#/Vol]0.4 10*3/uLNormal0.0-0.45The Unc Health Physician GroupComment on above:Performed By: #### CBC, BNP, ESR, CRP ####[id number] USAEosinophils/100 WBC (Bld)7.5 %Normal.The Unc Health Physician GroupComment on above:Performed By: #### CBC, BNP, ESR, CRP ####[id number] [facility] Erythrocyte distribution width (RBC) [Ratio]17.6 %High12.0-14.8The Unc Health Physician GroupComment on above:Performed By: #### CBC, BNP, ESR, CRP ####[place] [address] [place] Hematocrit (Bld) [Volume fraction]26.4 %Low38.8-50.0The Unc Health Physician GroupComment on above:Performed By: #### CBC, BNP, ESR, CRP ####[place] [address] USAHemoglobin (Bld) [Mass/Vol]8.8 g/dLLow13.0-17.0The Unc Health Physician GroupComment on above: Performed By: #### CBC, BNP, ESR, CRP ####[place] [address] USALymphocytes (Bld) [#/Vol]1.9 10*3/uLNormal 1.00-4.8The Unc Health Physician GroupComment on above:Performed By: #### CBC, BNP, ESR, CRP ####[place] [address] USALymphocytes/100 WBC (Bld)35.3 %Normal.[facility] Comment on above:Performed By: #### CBC, BNP, ESR, CRP ####[address] StreetMCH (RBC) [Entitic mass]30.7 nqKpvlnr44.5-35.2The Unc Health Physician GroupComment on above:Performed By: #### CBC, BNP, ESR, CRP ####[place] [address] USAMCV (RBC) [Entitic vol]92.5 xUFjerou30.5-101The Unc Health Physician GroupComment on above:Performed By: #### CBC, BNP, ESR, CRP ####[place] [address] USAMean Corpuscular HGB Conc33.1 g/bKGstwqt14.5-35.6The Unc Health Physician GroupComment on above:Performed By: #### CBC, BNP, ESR, CRP ####[place] [address] USAMonocytes (Bld) [#/Vol]0.4 10*3/uL Normal0.0-0.8The Unc Health Physician GroupComment on above:Performed By: #### CBC, BNP, ESR, CRP ####[place] [address] USAMonocytes/100 WBC (Bld)7.1 %Normal.[facility] Comment on above:Performed By: #### CBC, BNP, ESR, CRP ####[place] [address] USANeutrophils (Bld) [#/Vol]2.6 10*3/uLNormal1.8-7.7The Unc Health Physician GroupComment on above:Performed By: #### CBC, BNP, ESR, CRP ####[place] [address] USANeutrophils/100 WBC (Bld)48.8 %Normal.The Unc Health Physician GroupComment on above:Performed By: #### CBC, BNP, ESR, CRP ####[place] [address] USANRBC% 0.1 /100{WBC}Normal0-0.5The Unc Health Physician GroupComment on above:Performed By: #### CBC, BNP, ESR, CRP ####[place] [address] USAPlatelet mean volume (Bld) [Entitic vol]7.3 fLNormal 6.6-10.1The Unc Health Physician GroupComment on above:Performed By: #### CBC, BNP, ESR, CRP ####[place] [address] USAPlatelets (Bld) [#/Vol]238 10*3/kHHniyrr070-018Clh Unc Health Physician GroupComment on above:Performed By: #### CBC, BNP, ESR, CRP ####[address] [place] [address] USARBC (Bld) [#/Vol]2.85 10*6/uLLow3.90-5.60The Unc Health Physician GroupComment on above:Performed By: #### CBC, BNP, ESR, CRP ####[address] [address] USAWBC (Bld) [#/Vol]5.4 10*3/uLNormal4.1-10.5The Unc Health Physician GroupComment on above:Performed By: #### CBC, BNP, ESR, CRP ####[address] [address] [place] Eosinophils Auto (Bld) [#/Vol]Ordered By: Sandip Bunting on 04-30-2024 Eosinophils (Bld) [#/Vol]Automated eosinophil count0.0-0.45[facility] HospitalEosinophils/100 WBC Auto (Bld)Ordered By: Sandip Bunting on 92-95-5234Jrqifoymedq/100 WBC (Bld)Automated eosinophil %.[facility] HospitalErythrocyte Sedimentation Rateon 99-30-7242PMC (Bld) [Velocity]57 mm/hHigh0-19The Unc Health Physician GroupComment on above:Result Comment: PERFORMED BY:[address] [place], [place] [phone] MEDICAL DIRECTORJAJA CATES M.D. Performed By: #### CBC, BNP, ESR, CRP ####[address] [address] USAErythrocyte distribution width Auto (RBC) [Ratio]Ordered By: Sandip Bunting on 95-94-2981Rolgrzpulrv distribution width (RBC) [Ratio]Erythrocyte distribution width [Ratio] by Automated countHigh 12.0-14.8[facility] HospitalErythrocyte sedimentation rate by Photometric methodOrdered By: Sandip Bunting on 75-59-8168JFY Photometric method (Bld) [Velocity]Erythrocyte sedimentation rate by Photometric methodHigh0-19 [facility] HospitalHematocrit Auto (Bld) [Volume fraction]Ordered By: Sandip Bunting on 59-46-0966Ptrfkrnriv (Bld) [Volume fraction]Hematocrit [Volume Fraction] of Blood by Automated fpjjmNmk35.8-50.0[facility] HospitalHemoglobin [Mass/volume] in BloodOrdered By: Sandip Bunting on 09-90-2125Ilpmbasppx (Bld) [Mass/Vol]Hemoglobin [Mass/volume] in BloodLow 13.0-17.0[facility] HospitalLeukocytes [#/volume] corrected for nucleated erythrocytes in Blood by Automated counOrdered By: Sandip Bunting on 56-38-3874GZH corrected for nucl RBC Auto (Bld) [#/Vol]Leukocytes [#/volume] corrected for nucleated erythrocytes in Blood by Automated coun4.1-10.5FCommunity Regional Medical CenterLymphocytes Auto (Bld) [#/Vol]Ordered By: Sandip Bunting on 78-87-3421Bzkuwijxpht (Bld) [#/Vol]Lymphocytes [#/volume] in Blood by Automated count1.00-4.8[facility] HospitalLymphocytes/100 WBC Auto (Bld)Ordered By: Sandip Bunting on 49-68-7206Zshthmxcsxw/100 WBC (Bld) Lymphocytes/100 leukocytes in Blood by Automated count.[facility] HospitalH Auto (RBC) [Entitic mass]Ordered By: Sandip Bunting on 97-44-1562VUL (RBC) [Entitic mass]MCH [Entitic mass] by Automated count27.5-35.2 [facility] HospitalMCHC Auto (RBC) [Mass/Vol]Ordered By: Sandip Bunting on 49-53-7617FBEL (RBC) [Mass/Vol]MCHC [Mass/volume] by Automated count 32.5-35.6FCommunity Regional Medical CenterMCV Auto (RBC) [Entitic vol]Ordered By: Sandip Bunting on 35-01-8045UNI (RBC) [Entitic vol]MCV [Entitic volume] by Automated count83.5-101[facility] HospitalMonocytes Auto (Bld) [#/Vol]Ordered By: Sandip Bunting on 02-67-4580Pngtjteys (Bld) [#/Vol]Automated blood monocyte count0.0-0.8[facility] HospitalMonocytes/100 WBC Auto (Bld)Ordered By: Sandip Bunting on 00-10-2892Xxadcgjqm/100 WBC (Bld) Automated monocyte %.[facility] HospitalNatriuretic peptide B [Mass/Vol]Ordered By: Sandip Bunting on 85-63-9215Xcqhourieuu peptide B (Bld) [Mass/Vol]BNP ser/plasHigh5-100[facility] HospitalNeutrophils Auto (Bld) [#/Vol]Ordered By: Sandip Bunting on 88-90-3719Eshssnxwrbn (Bld) [#/Vol] Neutrophils [#/volume] in Blood by Automated count1.8-7.7FCommunity Regional Medical CenterNeutrophils/100 WBC Auto (Bld)Ordered By: Sandip Bunting on 46-04-0962Dneagpotmyp/100 WBC (Bld)Automated neutrophil %.[facility] HospitalNucleated erythrocytes [Presence] in Blood by Automated count Ordered By: Sandip Bunting on 64-33-6944Agqmpnxsy RBC Auto Ql (Bld)Nucleated erythrocytes [Presence] in Blood by Automated count0-0.5FCommunity Regional Medical CenterPlatelet mean volume Auto (Bld) [Entitic vol]Ordered By: Sandip Bunting on 50-58-6687Mfoiorjq mean volume (Bld) [Entitic vol]Platelet mean volume [Entitic volume] in Blood by Automated count6.6-10.1FCommunity Regional Medical CenterPlatelets Auto (Bld) [#/Vol]Ordered By: Sandip Bunting on 62-90-0313Kmelmnvtr (Bld) [#/Vol]Platelets [#/volume] in Blood by Automated ecpen422-826MsdhosbfcOhio Valley Surgical HospitalRBC Auto (Bld) [#/Vol]Ordered By: Sandip Bunting on 09-36-9269EZV (Bld) [#/Vol]Erythrocytes [#/volume] in Blood by Automated countLow3.90-5.60[facility] HospitalWBC Auto (Bld) [#/Vol]Ordered By: Sandip Bunting on 97-24-5810AMS (Bld) [#/Vol]Leukocytes [#/volume] in Blood by Automated count4.1-10.5FCommunity Regional Medical Center B-Type Natriuretic Peptideon 47-51-8700Evcxutgjmqx peptide B (Bld) [Mass/Vol] 216.0 pg/mLHigh5-100The Unc Health Physician GroupComment on above:Result Comment: PERFORMED BY:[address] [place], [place] [phone] MEDICAL DIRECTORJAJA CATES M.D. Performed By: #### BNP, CRP, CBC, ESR ####[facility] [address] [place] [address] USABasophils Auto (Bld) [#/Vol]Ordered By: Sandip Bunting on 50-33-4449Zoigflwku (Bld) [#/Vol]Automated basophil count0.0-0.2 [facility] HospitalBasophils/100 WBC Auto (Bld)Ordered By: Sandip Bunting on 24-17-5539Qlydobdjj/100 WBC (Bld)Automated basophil %.[facility] HospitalC reactive protein [Mass/volume] in Serum or Plasma Ordered By: Sandip Bunting on 99-09-4985KOX [Mass/Vol]C reactive protein [Mass/volume] in Serum or PlasmaHigh0.0-0.5FCommunity Regional Medical CenterC- Reactive Proteinon 23-67-0692M-Reactive Protein6.7 mg/dLHigh0.0-0.5The Unc Health Physician GroupComment on above:Result Comment: PERFORMED BY:[address] [place], [place] [phone] MEDICAL DIRECTORJAJA CATES M.D.Performed By: #### BNP, CRP, CBC, ESR ####[facility] [address] [place] [address] [facility] Complete Blood Count Auto Diffon 52-68-2420Bavrpeuax (Bld) [#/Vol]0.1 10*3/uL Normal0.0-0.2The Unc Health Physician GroupComment on above:Performed By: #### BNP, CRP, CBC, ESR ####[place] [address] USABasophils/100 WBC (Bld)0.9 %Normal.[facility] Comment on above:Performed By: #### BNP, CRP, CBC, ESR ####[place] [address] USAEosinophils (Bld) [#/Vol]0.5 10*3/uLHigh0.0-0.45The Unc Health Physician GroupComment on above:Performed By: #### BNP, CRP, CBC, ESR ####[place] [address] USAEosinophils/100 WBC (Bld)6.4 %Normal.The Unc Health Physician GroupComment on above:Performed By: #### BNP, CRP, CBC, ESR ####[address] Erythrocyte distribution width (RBC) [Ratio]17.0 %High12.0-14.8The Unc Health Physician GroupComment on above:Performed By: #### BNP, CRP, CBC, ESR ####[place] [address] [place] Hematocrit (Bld) [Volume fraction]26.9 %Low38.8-50.0The Unc Health Physician GroupComment on above:Performed By: #### BNP, CRP, CBC, ESR ####[place] [address] USAHemoglobin (Bld) [Mass/Vol]9.0 g/dLLow13.0-17.0The Unc Health Physician GroupComment on above: Performed By: #### BNP, CRP, CBC, ESR ####[place] [address] USALymphocytes (Bld) [#/Vol]2.1 10*3/uLNormal 1.00-4.8The Unc Health Physician GroupComment on above:Performed By: #### BNP, CRP, CBC, ESR ####[place] [id number] USALymphocytes/100 WBC (Bld)29.5 %Normal.[facility] Comment on above:Performed By: #### BNP, CRP, CBC, ESR ####[address] [place] [facility] (RBC) [Entitic mass]31.4 hiLaepvl89.5-35.2The Unc Health Physician GroupComment on above:Performed By: #### BNP, CRP, CBC, ESR ####[place] [facility] ([facility]) [Entitic vol]93.7 wJEyuixa49.5-101The Unc Health Physician GroupComment on above:Performed By: #### BNP, CRP, CBC, ESR ####[place] [address] USAMean Corpuscular HGB Conc33.5 g/vSMtajgm70.5-35.6The Unc Health Physician GroupComment on above:Performed By: #### BNP, CRP, CBC, ESR ####[place] [address] USAMonocytes (Bld) [#/Vol]0.7 10*3/uL Normal0.0-0.8The [facility] Health Physician GroupComment on above:Performed By: #### BNP, CRP, CBC, ESR ####[place] [id number] USAMonocytes/100 WBC (Bld)9.2 %Normal.[facility] Comment on above:Performed By: #### BNP, CRP, CBC, ESR ####[place] [id number] USANeutrophils (Bld) [#/Vol]3.9 10*3/uLNormal1.8-7.7The [facility] Health Physician GroupComment on above:Performed By: #### BNP, CRP, CBC, ESR ####[place] [address] USANeutrophils/100 WBC (Bld)54.0 %Normal.The [facility] Health Physician GroupComment on above:Performed By: #### BNP, CRP, CBC, ESR ####[place] [address] USANRBC% 0.1 /100{WBC}Normal0-0.5The [facility] Health Physician GroupComment on above:Performed By: #### BNP, CRP, CBC, ESR ####[place] [address] USAPlatelet mean volume (Bld) [Entitic vol]7.8 fLNormal 6.6-10.1The Un[facility] Health Physician GroupComment on above:Performed By: #### BNP, CRP, CBC, ESR ####[place] [address] USAPlatelets (Bld) [#/Vol]249 10*3/xUNrwxbo533-033Jnl Unc Health Physician GroupComment on above:Performed By: #### BNP, CRP, CBC, ESR ####[place] [address] USARBC (Bld) [#/Vol]2.87 10*6/uLLow3.90-5.60The Unc Health Physician GroupComment on above:Performed By: #### BNP, CRP, CBC, ESR ####[place] [address] USAWBC (Bld) [#/Vol]7.2 10*3/uLNormal4.1-10.5The Unc Health Physician GroupComment on above:Performed By: #### BNP, CRP, CBC, ESR ####[place] [address] [place] Eosinophils Auto (Bld) [#/Vol]Ordered By: Sandip Aguirre on 04-23-2024 Eosinophils (Bld) [#/Vol]Automated eosinophil countHigh0.0-0.45[facility] HospitalEosinophils/100 WBC Auto (Bld)Ordered By: Sandip Bunting on 96-85-8939Wauzxdnoglb/100 WBC (Bld)Automated eosinophil %.[facility] HospitalErythrocyte Sedimentation Rateon 40-80-2107QNI (Bld) [Velocity]95 mm/hHigh0-19The Unc Health Physician GroupComment on above:Result Comment: PERFORMED BY:[facility] [place], [place] [phone] MEDICAL DIRECTORJAJA CATES M.D. Performed By: #### BNP, CRP, CBC, ESR ####[facility] [place] [address] [facility] HEALTH CENTERErythrocyte distribution width Auto (RBC) [Ratio]Ordered By: Sandip Bunting on 62-15-7116Bxdheubbxoj distribution width (RBC) [Ratio]Erythrocyte distribution width [Ratio] by Automated countHigh 12.0-14.8[facility] HospitalErythrocyte sedimentation rate by Photometric methodOrdered By: Sandip Bunting on 91-38-7176QSY Photometric method (Bld) [Velocity]Erythrocyte sedimentation rate by Photometric methodHigh0-19 [facility] HospitalHematocrit Auto (Bld) [Volume fraction]Ordered By: Sandip Bunting on 83-61-1206Tbpyktsgfs (Bld) [Volume fraction]Hematocrit [Volume Fraction] of Blood by Automated qjdezSpq21.8-50.0[facility] HospitalHemoglobin [Mass/volume] in BloodOrdered By: Sandip Bunting on 85-69-1046Nwhdhunejk (Bld) [Mass/Vol]Hemoglobin [Mass/volume] in BloodLow 13.0-17.0[facility] HospitalLeukocytes [#/volume] corrected for nucleated erythrocytes in Blood by Automated counOrdered By: Sandip Bunting on 61-03-6735VYI corrected for nucl RBC Auto (Bld) [#/Vol]Leukocytes [#/volume] corrected for nucleated erythrocytes in Blood by Automated coun4.1-10.5FCommunity Regional Medical CenterLymphocytes Auto (Bld) [#/Vol]Ordered By: Sandip Bunting on 18-40-6212Esawyijbnft (Bld) [#/Vol]Lymphocytes [#/volume] in Blood by Automated count1.00-4.8[facility] HospitalLymphocytes/100 WBC Auto (Bld)Ordered By: Sandip Bunting on 58-10-7595Bzhsolbkrhr/100 WBC (Bld) Lymphocytes/100 leukocytes in Blood by Automated count.[facility] HospitalH Auto (RBC) [Entitic mass]Ordered By: Sandip Bunting on 82-44-1815UIL (RBC) [Entitic mass]MCH [Entitic mass] by Automated count27.5-35.2 [facility] HospitalHC Auto (RBC) [Mass/Vol]Ordered By: Sandip Bunting on 15-57-6181LCVS (RBC) [Mass/Vol]MCHC [Mass/volume] by Automated count 32.5-35.6FCommunity Regional Medical CenterMCV Auto (RBC) [Entitic vol]Ordered By: Sandip Bunting on 18-38-9261OSC (RBC) [Entitic vol]MCV [Entitic volume] by Automated count83.5-101[facility] HospitalMonocytes Auto (Bld) [#/Vol]Ordered By: Sandip Bunting on 42-47-8642Hymidtwvy (Bld) [#/Vol]Automated blood monocyte count0.0-0.8[facility] HospitalMonocytes/100 WBC Auto (Bld)Ordered By: Sandip Bunting on 95-97-5689Eycgtwrok/100 WBC (Bld) Automated monocyte %.[facility] HospitalNatriuretic peptide B [Mass/Vol]Ordered By: Sandip Bunting on 17-26-3457Qzyojpusfeq peptide B (Bld) [Mass/Vol]BNP ser/plasHigh5-100[facility] HospitalNeutrophils Auto (Bld) [#/Vol]Ordered By: Sandip Bunting on 82-04-5134Sidhvgqnwcz (Bld) [#/Vol] Neutrophils [#/volume] in Blood by Automated count1.8-7.7FCommunity Regional Medical CenterNeutrophils/100 WBC Auto (Bld)Ordered By: Sandip Bunting on 13-42-1553Rqbjspqytmg/100 WBC (Bld)Automated neutrophil %.[facility] CenterNucleated erythrocytes [Presence] in Blood by Automated count Ordered By: Sandip Bunting on 59-16-8740Kqgeqcvaw RBC Auto Ql (Bld)Nucleated erythrocytes [Presence] in Blood by Automated count0-0.5FCommunity Regional Medical CenterPlatelet mean volume Auto (Bld) [Entitic vol]Ordered By: Sandip Bunting on 31-62-6287Ptypghmf mean volume (Bld) [Entitic vol]Platelet mean volume [Entitic volume] in Blood by Automated count6.6-10.1FCommunity Regional Medical CenterPlatelets Auto (Bld) [#/Vol]Ordered By: Sandip Bunting on 25-91-8980Dsavzyayh (Bld) [#/Vol]Platelets [#/volume] in Blood by Automated zjoog181-014RcaulsieuOhio Valley Surgical HospitalRBC Auto (Bld) [#/Vol]Ordered By: Sandip Bunting on 79-77-7391LJZ (Bld) [#/Vol]Erythrocytes [#/volume] in Blood by Automated countLow3.90-5.60[facility] HospitalWBC Auto (Bld) [#/Vol]Ordered By: Sandip Bunting on 79-55-3303PAO (Bld) [#/Vol]Leukocytes [#/volume] in Blood by Automated count4.1-10.5FCommunity Regional Medical Center .eGFRon 31-43-6623Dqlbluxhn GFR57 mL/min/1.73m?Low>=60City HospitalComment on above:Result Comment: [facility] Laboratories have implemented the eGFR calculation approach [...] Age = yearsPerformed By: #### MG #### [address] [address]Wdcey Metabolic Profileon 63-25-1903Aajfx gap [Moles/Vol]8 mmol/LNormal4-12City HospitalComment on above:Performed By: #### CD:[id number] #### [address] [address]Qjtcnwm [Mass/Vol]8.6 mg/dLNormal8.5-10.3BAvita Health System Galion HospitalComment on above:Performed By: #### CD:[id number] #### [address] [address]Ditocvgc [Moles/Vol]96 mmol/YLjl03-830RxaxaglppCity HospitalComment on above:Performed By: #### CD:[id number] #### [address] [address]MS4 [Moles/Vol]27 mmol/CDnxqim04-87CpefzxwieCity HospitalComment on above:Performed By: #### CD:[id number] #### [address] [address]Mkcvlvmell [Mass/Vol]1.25 mg/dLHigh0.61-1.24City HospitalComment on above:Performed By: #### CD:[id number] #### [address] [address]Ykcejrx [Mass/Vol]83 mg/pMPjzzne38-30LpjwblnsxCity HospitalComment on above:Performed By: #### CD:[id number] #### [address] [address]Qyrmnwlgi [Moles/Vol]3.7 mmol/LNormal3.4-4.8BAvita Health System Galion HospitalComment on above:Performed By: #### CD:[id number] #### [address] [address]Zliefc [Moles/Vol]131 mmol/EZyb238-572OuylfjthcCity HospitalComment on above:Performed By: #### CD:[id number] #### [address] [address]Ocpl nitrogen [Mass/Vol]19 mg/dLNormal8-26City HospitalComment on above:Performed By: #### CD:[id number] #### [address] [address]Phjk nitrogen/Creatinine [Mass ratio]15.2 mg/czYntwod90.0-20.0 City HospitalComment on above:Performed By: #### CD:[id number] #### [address] [address]A Bldon 04-20-2024 Bld Final No growth at 5 days.NormalCity HospitalComment on above: Performed By: #### BLDC ####[address] [address]Moectzotj By: #### MARISELA #### [address] [address]N Sterile BSon 04-20-2024 Sterile BS Final Light Growth of Pseudomonas aeruginosa isolated ORGANISM PA SUSCEPTIBILITY ORGANISM ID: 1 ANTIBIOTIC INTERPRETATION BELLA STATUS POS Pseudomonas aeruginosa Ceftazidime S 4 V Ciprofloxacin I 1 V Levofloxacin R 4 V Meropenem S 1 V Piperacillin/Tazobactam S 16 V SUSCEPTIBILITY ORGANISM ID: 1 ANTIBIOTIC INTERPRETATION BELLA STATUS POS Pseudomonas aeruginosa Cefepime S VNormalCity HospitalComment on above:Performed By: #### :[id number] #### [address] [address]QHZ w/ Diffon 49-13-5691Ikxelvqzbgh distribution width (RBC) [Ratio]17.6 %High11.6-14.8BAvita Health System Galion HospitalComment on above: Performed By: #### CBC ####[address] [address]Wshecskmpb (Bld) [Volume fraction]27.2 %Low41.0-53.0 City HospitalComment on above:Performed By: #### CBC ####[address] [address]Qfkqmoupvv (Bld) [Mass/Vol]9.1 g/dLLow13.5-17.5BAvita Health System Galion HospitalComment on above:Performed By: #### CBC ####[address] [address]OLO (RBC) [Entitic mass]31.1 zvRdwsko34.0-35.0City HospitalComment on above:Performed By: #### CBC ####[address] [address]FUOB71.5 %Xhvqtp76.0-37.0 City HospitalComment on above:Performed By: #### CBC ####[address] [address]GTO (RBC) [Entitic vol]92.9 zBWkzjlf66.0-100.0City HospitalComment on above:Performed By: #### CBC ####[address] [address]Wskpuwce650 x10*3/ptWQnrzlm311-153HdahyjdugCity HospitalComment on above:Performed By: #### CBC ####[address] [address]Afyggfib mean volume (Bld) [Entitic vol]7.0 fL Normal6.7-10.6BAvita Health System Galion HospitalComment on above:Performed By: #### CBC ####[address] [address]NJB6.93 x10*6/mcLLow4.30-5.80City HospitalComment on above:Performed By: #### CBC ####[address] [address]HJB8.0 x10*3/mcLNormal4.5-11.0City HospitalComment on above:Performed By: #### CBC ####[address] [address]Drgrsdgref Progress Noteon 53-05-1145Rqcxpesepq Progress NoteSubjective PCP: Opal Ga DO ([place], [place]) Cardio: Kathy Mcintyre DO [facility] [place] [place] 83M with permanent AF, CHF, CKD, hypercholesterolemia transferred from [facility] for continued treatment of lower extremity edema and perioperative cardiology evaluation. Lower extremity edema suspected of being more related to chronic lymphedema than decompensated heart failure. Interval History: - POD #3 lumbar I&D with wound closure finding a small seroma - No significant events overnight - Fluid balance -3.3 L yesterday and -7.5 L since admission to [facility] (-4.7 L at [facility] prior to transfer) - Denies chest pain, dyspnea, palpitations, or lightheadedness Cardiac Testing Echocardiography > 04/13/24: (Limited) EF 45-50%, mild RV enlargement with mildly reduced systolic function, marked LAE, moderate MARCIA ([facility]) Objective Vitals & Measurements T: 36.7 ?C [...] Zofran, 4 mg= 2 mL, IV Push, k7tz-Uhnnlick Times, PRN Assessment/Plan 1. Chronic HFmrEF (systolic [...] a cardiac perspective. Follow up with primary intake clerk in [place], [place], after discharge. Will sign off. Medical Decision Making Number of Problems Addressed: Moderate (2 stable chronic problems [CHF, AF]) Data Reviewed/Analyzed: Moderate (reviewed results of at least 3 unique lab tests) Risk of Complications, Morbidity, or Mortality: Moderate (prescription drug management) Electronically signed by Frankie Dallas DO 04/20/24 13:45 [facility] Dietary Progress Noteon 53-06-2473Rptmxzs Progress NotePt. screened for LOS. Pt. with [...] Electronically signed by Dolly Escobedo 04/20/24 13:26 ESTNormalBlSelect Medical [facility]Health Rehabilitation Hospital - DublinDiff Autoon 78-71-7447Mxke Absolute0.0 x10*3/mcLNormal0.0-0.2BAvita Health System Gal[facility] Hospital Comment on above:Performed By: #### .Automated Diff ####[address] [address]Ydzrogrcv/100 WBC (Bld)0.6 % Normal0.0-1.2BAvita Health System Galion HospitalComment on above:Performed By: #### .Automated Diff ####[address] [address]Zxl Absolute0.5 x10*3/mcLHigh0.0-0.4BMcCullough-Hyde Memorial Hospital SystemComment on above:Performed By: #### .Automated Diff ####[address] [address]Ynfmgdxxvkd/100 WBC (Bld)8.7 %High0.0-6.1 [facility] SystemComment on above:Performed By: #### .Automated Diff ####[address] [address]Gjalr Absolute1.9 x10*3/mcLNormal1.0-4.8BMcCullough-Hyde Memorial Hospital SystemComment on above:Performed By: #### .Automated Diff ####[address] [address]Edkpqvusgne/100 WBC (Bld)32.3 %Ahmjqg13.2-40.8 City HospitalComment on above:Performed By: #### .Automated Diff ####[address] [address]Fgsb Absolute0.5 x10*3/mcLNormal0.3-1.1BMcCullough-Hyde Memorial Hospital SystemComment on above:Performed By: #### .Automated Diff ####[address] [address]Pmytbnduw/100 WBC (Bld)9.0 %Normal4.7-13.9BMcCullough-Hyde Memorial Hospital SystemComment on above:Performed By: #### .Automated Diff ####[address] [address]Oqispe Absolute3.0 x10*3/mcLNormal1.8-7.7BMcCullough-Hyde Memorial Hospital SystemComment on above:Performed By: #### .Automated Diff ####[address] [address]Nnvdym Auto49.4 %Zsdqbh85.2-70.8BAvita Health System Galion HospitalComment on above:Performed By: #### .Automated Diff ####[facility] [place], [place] [address]Vhmikbqyw Clinical Summary on 36-13-5617Nzfabvfaf Clinical SummaryBlWestern State Hospital [address] [place] [address] [phone] [address] [phone] Clinical Summary Person Information Name: Tavo Wallis Age: 83 Years : 1940 Sex: Male PCP: Tavo Mcintyre DO Marital Status: Phone: PCP: Race: White Ethnicity: Not or Language: Egyptian Visit Id: Visit Reason: CHF exacerbation Speciality: Acuity: Enc Type: Inpatient Med Service: Medicine-General Arrival: 04/15/2024 03:52:56 Discharge: Dispo Type: Address: [address] [id number] Preferred Communication Mode: Preferred Language: Egyptian Discharge Diagnosis: 1:Postoperative wound infection; 2:Dehiscence of surgical wound; 3:Atrial fibrillation, permanent; 4:Current use of anticoagulants; 5:Lymphedema; 6:Chronic systolic heart failure; 7:Postoperative urinary retention; 8:Preoperative cardiovascular examination Discharged To: alf facility Mode of Discharge Transportation: Home Treatments: Devices/Equipment: Professional Skilled Services: Special Services and Community Resources: Discharge Orders: Activity Restrictions Follow up 04/20/24 13:16:00 EST, Provider: Tye Pompa MD, 1 to 2 weeks Follow up 04/20/24 13:17:00 EST, Provider: [facility], Randi Mes[place], 1 week Follow up with Primary Care Provider (PCP) 04/18/24 11:08:00 EST, 1 to 2 weeks Retirement Facility Certification 04/18/24 11:08:00 EST, Skilled, I certify long term facility stay is anticipated to be LESS [...] range between ( 27.2 and 40.8 ) [place] Auto: 9.0 % -- Normal range between [...] range between ( 41.0 and 53.0 ) [place] Absolute: 0.5 x10 MCH: 31.1 pg -- Normal range between ( 27.0 and 35.0 ) Neutro Absolute: 3.0 x10 Hgb: 9.1 g/dL -- Normal range between ( 13.5 and 17.5 ) Me (more content not included)...NormalCity HospitalMagnesiumon 91-67-8168Xusvxcrhm [Mass/Vol]2.1 mg/dLNormal1.7-2.4BAvita Health System Galion HospitalComment on above:Performed By: #### MG #### [address] [address]Kflvaiwako Progress Noteon 40-48-4548Ezleahhjiv Progress Note Subjective POD#1 lumbar I&D. Patient [...] Zofran, 4 mg= 2 mL, IV Push, a9il-Knpgcsdb Times, PRN Assessment/Plan 1. Postoperative wound infection [...] signed by Mani Hannon PA-C 04/20/24 08:08 [facility] Progress Note-Nurseon 68-68-6857Opwqxgnt Note-Eayvf95a 10cm single lumen powerglide midline catheter inserted in the left upper arm. Sterile field main tained. no complications noted. Patient tolerated well. lot # [id number] Electronically signed by Jonelle Wall 04/20/24 11:55 [facility].eGFRon 41-15-1323Tqdrppkog GFR52 mL/min/1.73m?Low>=60City Hospital Comment on above:Result Comment: [facility] Laboratories have implemented the eGFR calculation approach [...] 1 Age = yearsPerformed By: #### EGFR ####[address] [address]Uvshd Metabolic Profileon 83-97-6347Izgsd gap [Moles/Vol] 6 mmol/LNormal4-12City HospitalComment on above:Performed By: #### MG #### [address] [address]Qeheyto [Mass/Vol]8.5 mg/dLNormal8.5-10.3BAvita Health System Galion HospitalComment on above:Performed By: #### MG #### [address] [address]Nqozvytq [Moles/Vol]97 mmol/NQpz01-875LwtfgxatfCity HospitalComment on above:Performed By: #### MG #### [address] [address]IQ5 [Moles/Vol]27 mmol/LQxzbdm77-95FyfpagdjvCity HospitalComment on above:Performed By: #### MG #### [address] [address]Yzqhnugzsh [Mass/Vol]1.37 mg/dLHigh0.61-1.24City HospitalComment on above:Performed By: #### MG #### [address] [address]Jwczequ [Mass/Vol]94 mg/oBKbcjmp53-91WliwpkkhxCity HospitalComment on above:Performed By: #### MG #### [address] [address]Juzgbitpc [Moles/Vol]3.8 mmol/LNormal3.4-4.8BAvita Health System Galion HospitalComment on above:Performed By: #### MG #### [address] [address]Pajkby [Moles/Vol]130 mmol/PEuc318-918UtkikhjwfCity HospitalComment on above:Performed By: #### MG #### [address] [address]Lxea nitrogen [Mass/Vol]20 mg/dLNormal8-26City HospitalComment on above:Performed By: #### MG #### [address] [address]Tjct nitrogen/Creatinine [Mass ratio]14.6 mg/lwAhcvir28.0-20.0 City HospitalComment on above:Performed By: #### MG #### [address] [address]Q ANAon 04-19-2024 KG Final No anaerobic growth after 72 hrs.NormalCity HospitalComment on above:Performed By: #### CD:[id number] #### [address] [address]WZS w/ Diffon 94-07-3784Yyjhfbzfyox distribution width (RBC) [Ratio]18.1 %High11.6-14.8BAvita Health System Galion HospitalComment on above: Performed By: #### CD:[id number] #### [address] [address]Tlmtksbduv (Bld) [Volume fraction]27.4 %Low41.0-53.0City HospitalComment on above:Performed By: #### CD:[id number] #### [address] [address]Yhnuhzylnd (Bld) [Mass/Vol]9.3 g/dLLow13.5-17.5BAvita Health System Galion HospitalComment on above:Performed By: #### CD:[id number] #### [address] [address]NZR (RBC) [Entitic mass]31.4 ieVpfdve04.0-35.0City HospitalComment on above:Performed By: #### CD:[id number] #### [address] [address]GTJC00.0 %Rmlxeb82.0-37.0City HospitalComment on above:Performed By: #### CD:[id number] #### [address] [address]CEE (RBC) [Entitic vol]92.4 pUTobxzu83.0-100.0City HospitalComment on above:Performed By: #### CD:[id number] #### [address], [place] [address]Dljvdrim744 x10*3/xgRDmlxoq106-641TatiagksaCity HospitalComment on above:Performed By: #### CD:[id number] #### [address] [address]Qymrcnmf mean volume (Bld) [Entitic vol]7.2 fLNormal6.7-10.6 City HospitalComment on above:Performed By: #### CD:[id number] #### [address], [place] [address]CTC4.96 x10*6/mcLLow4.30-5.80[facility] Comment on above:Performed By: #### CD:[id number] #### [address], [place] [address]TFL5.9 x10*3/mcLNormal4.5-11.0[facility] Comment on above:Performed By: #### CD:[id number] #### [address] [address]Peji Autoon 66-92-1183Qnxl Absolute0.0 x10*3/mcLNormal0.0-0.2 City HospitalComment on above:Performed By: #### MG #### [address] [address]Vcfgtxcru/100 WBC (Bld)0.5 %Normal0.0-1.2BAvita Health System Galion HospitalComment on above:Performed By: #### MG #### [address] [address]Wai Absolute0.4 x10*3/mcLNormal0.0-0.4BAvita Health System Galion HospitalComment on above:Performed By: #### MG #### [address] [address]Lqnmltngddp/100 WBC (Bld)5.9 %Normal0.0-6.1BAvita Health System Galion HospitalComment on above:Performed By: #### MG #### [address] [address]Tznsn Absolute2.2 x10*3/mcLNormal1.0-4.8BAvita Health System Galion HospitalComment on above:Performed By: #### MG #### [address] [address]Culmnziwick/100 WBC (Bld)32.3 %Qbivov43.2-40.8BAvita Health System Galion HospitalComment on above:Performed By: #### MG #### [address] [address]Osif Absolute0.8 x10*3/mcLNormal0.3-1.1BAvita Health System Galion HospitalComment on above:Performed By: #### MG #### [address] [address]Ylkkvibne/100 WBC (Bld)11.2 %Normal4.7-13.9BAvita Health System Galion HospitalComment on above:Performed By: #### MG #### [facility] [address] [place], [place] [address]Wnbhgh Absolute3.5 x10*3/mcLNormal1.8-7.7BAvita Health System Galion HospitalComment on above:Performed By: #### MG #### [facility] [address] [place], [place] [address]Knghve Auto50.1 %Fnswym21.2-70.8BA[facility] Comment on above:Performed By: #### MG #### [facility] [address] [place], [place] [address]Oejbjqpsby Disease Progress Noteon 16-50-4803Gsksnwmtgu Disease Progress NoteSubjective Overall feeling okay. No [...] with patient's daughter who is power of associate attorney. CRF filled out. Ordered: Midline Catheter Insertion 2. Dehiscence of surgical wound 3. Atrial fibrillation, permanent 4. Current use of anticoagulants 5. Lymphedema 6. Chronic systolic heart failure 7. Postoperative urinary retention 8. Preoperative cardiovascular examination Electronically signed by Tye Pompa MD 04/19/24 20:32 ESTNormalCity HospitalMagnesiumon 55-06-9933Avhaxwclx [Mass/Vol]2.1 mg/dLNormal1.7-2.4 City HospitalComment on above:Performed By: #### CBC #### [place] [address].eGFRon 17-12-8525Oxofldbhh GFR48 mL/min/1.73m?Low>=60City HospitalComment on above:Result Comment: [facility] Laboratories have implemented the eGFR calculation approach [...] Age = yearsPerformed By: #### CBC #### [address] [address]Shhzb Metabolic Profileon 07-96-8303Omaiw gap [Moles/Vol]8 mmol/LNormal4-12City HospitalComment on above:Performed By: #### MG #### [address] [address]Usaorla [Mass/Vol]8.3 mg/dLLow8.5-10.3BAvita Health System Galion HospitalComment on above:Performed By: #### MG #### [address] [address]Wqrbdpbk [Moles/Vol]97 mmol/EPbj51-454KclkndwqnCity HospitalComment on above:Performed By: #### MG #### [address] [address]TR2 [Moles/Vol]27 mmol/VDbozvj57-20YhdnaromrCity HospitalComment on above:Performed By: #### MG #### [address] [address]Eassyluaob [Mass/Vol]1.45 mg/dLHigh0.61-1.24City HospitalComment on above:Performed By: #### MG #### [address] [address]Pvimedg [Mass/Vol]87 mg/aIWitecf98-68BolssdowyCity HospitalComment on above:Performed By: #### MG #### [address] [address]Nbpebsgpf [Moles/Vol]3.9 mmol/LNormal3.4-4.8BAvita [facility] System Galion HospitalComment on above:Performed By: #### MG #### [address] [address]Ngbgvp [Moles/Vol]132 mmol/TGgc707-844WdzytifsxCity HospitalComment on above:Performed By: #### MG #### [address] [address]Tckk nitrogen [Mass/Vol]19 mg/dLNormal8-26City HospitalComment on above:Performed By: #### MG #### [address] [address]Tunw nitrogen/Creatinine [Mass ratio]13.1 mg/mhXphbcm54.0-20.0 City HospitalComment on above:Performed By: #### MG #### [address] [address]KDU w/ Diffon 11-55-4928Iosyenecpuj distribution width (RBC) [Ratio]18.1 %High11.6-14.8BAvita Health System Galion HospitalComment on above: Performed By: #### MG #### [address] [address]Kycbttysbo (Bld) [Volume fraction]26.8 %Low41.0-53.0City HospitalComment on above:Performed By: #### MG #### [address] [address]Lkdxihtfdn (Bld) [Mass/Vol]8.9 g/dLLow13.5-17.5BAvita Health System Galion HospitalComment on above:Performed By: #### MG #### [address] [address]ORK (RBC) [Entitic mass]30.6 ksApqotx80.0-35.0City HospitalComment on above:Performed By: #### MG #### [address] [address]HSFT11.1 %Csgvej50.0-37.0City HospitalComment on above:Performed By: #### MG #### [address] [address]JFC (RBC) [Entitic vol]92.6 cRHrjsnd92.0-100.0City HospitalComment on above:Performed By: #### MG #### [address] [address]Biizdtzi009 x10*3/agRRdoceo897-864DzzlvtpkgCity HospitalComment on above:Performed By: #### MG #### [address] [address]Vwevufwu mean volume (Bld) [Entitic vol]6.9 fLNormal6.7-10.6 City HospitalComment on above:Performed By: #### MG #### [address] [address]GOG2.90 x10*6/mcLLow4.30-5.80[facility] Comment on above:Performed By: #### MG #### [address] [address]YIP4.5 x10*3/mcLNormal4.5-11.0[facility] Comment on above:Performed By: #### MG #### [address] [address]PKSav 98-93-2085RBN41.60 mg/dLHigh0.00-0.75City HospitalComment on above:Result Comment: CRP measurement is useful for assessment of non-specific INFLAMMATORY RESPONSE to infection or injury AND is a sensitive MARKER of ACUTE INFLAMMATION including CARDIAC RISK ASSESSMENT. CARDIAC patients with elevated CRP are POTENTIALLY at a HIGHER RISK OF FUTURE CARDIAC EVENTS.Performed By: #### MG #### [address] [id number] Progress Noteon [phone] Progress Note Subjective PCP: Opal Ga DO ([place], [place]) Cardio: Kathy Mcintyre DO [facility] [place] [place] 83M with permanent AF, CHF, CKD, hypercholesterolemia transferred from [facility] for continued treatment of lower extremity edema and perioperative cardiology evaluation. Lower extremity edema suspected of being more related to chronic lymphedema than decompensated heart failure. Interval History: - POD #1 lumbar I&D with wound closure finding a small seroma - No significant events overnight - Fluid balance -1.3 L yesterday and -4.0 L since admission to [facility] (-4.7 L at [facility] prior to transfer) - Denies chest pain, dyspnea, palpitations, or lightheadedness Cardiac Testing Echocardiography > 04/13/24: (Limited) EF 45-50%, mild RV enlargement with mildly reduced systolic function, marked LAE, moderate MARCIA ([facility]) Objective Vitals & Measurements T: 38.0 ?C [...] Zofran, 4 mg= 2 mL, IV Push, b1uj-Gcevahuq Times, PRN Assessment/Plan 1. Chronic HFmrEF (systolic [...] signed by Frankie Dallas DO 04/18/24 07:58 [facility] Diff Autoon 08-30-1732Gloe Absolute0.1 x10*3/mcLNormal0.0-0.2BAvita Health System Galion HospitalComment on above:Performed By: #### .Automated Diff ####[address] [address]Rtmqmamas/100 WBC (Bld)0.6 %Normal0.0-1.2BAvita Health System Galion HospitalComment on above:Performed By: #### .Automated Diff ####[address] [address]Ycv Absolute0.3 x10*3/mcLNormal0.0-0.4BAvita Health System Galion HospitalComment on above:Performed By: #### .Automated Diff ####[address] [address]Yloxlppgzzh/100 WBC (Bld)4.0 %Normal0.0-6.1 City HospitalComment on above:Performed By: #### .Automated Diff ####[address] [address]Onytw Absolute2.7 x10*3/mcLNormal1.0-4.8BAvita Health System Galion HospitalComment on above:Performed By: #### .Automated Diff ####[address] [address]Pcploduprdc/100 WBC (Bld)32.0 %Hjsrqr74.2-40.8 City HospitalComment on above:Performed By: #### .Automated Diff ####[address] [address]Jswd Absolute0.8 x10*3/mcLNormal0.3-1.1BAvita Health System Galion HospitalComment on above:Performed By: #### .Automated Diff ####[address] [address]Aozxbgbkf/100 WBC (Bld)9.7 %Normal4.7-13.9BAvita Health System Galion HospitalComment on above:Performed By: #### .Automated Diff ####[address] [place], [place] [address]Sefqsw Absolute4.5 x10*3/mcLNormal1.8-7.7BAvita Health System Galion HospitalComment on above:Performed By: #### .Automated Diff ####[address] [address]Mikquf Auto53.7 %Vsonbx04.2-70.8BAvita Health System Galion HospitalComment on above:Performed By: #### .Automated Diff ####[address] [address]EMSqu 51-81-4067Qzi Rate75 mm/hrHigh0-23City HospitalComment on above:Performed By: #### ESR ####[address] [address] Infectious Disease Progress Noteon 30-14-3449Pjvfphukjp Disease Progress Note Subjective Noted to have [...] signed by Tye Pompa MD 04/18/24 17:30 ESTNormalCity HospitalMagnesiumon 69-37-3934Zqiwxdfvz [Mass/Vol]1.8 mg/dLNormal1.7-2.4 City HospitalComment on above:Performed By: #### MG #### [address] [address]Mzymzvsaay Progress Noteon 22-78-2595Kwllsqgbto Progress Note Subjective POD#1 lumbar I&D. Patient [...] Zofran, 4 mg= 2 mL, IV Push, y4nd-Brftbphu Times, PRN Assessment/Plan 1. Dehiscence of surgical wound 2. Atrial fibrillation, permanent 3. Current use of anticoagulants 4. Lymphedema 5. Chronic systolic heart failure 6. Postoperative urinary retention Plan: 1. Continue drain 2. ID consulted and following along 3. Discharge pending Electronically signed by aMni Hannon PA-C 04/18/24 06:30 ESTNormalCity Hospital Respiratory Pathogens Panelon 41-71-4695Rjfbvwxxtw.Not detectedNormalNot DetectedCity HospitalComment on above:Performed By: #### CD:[id number] #### [address] [address]Tftnydzyqz holmesiiNot detectedNormalNot DetectedCity HospitalComment on above:Result Comment: Testing was performed using nucleic acid amplification including Influenza A, Influenza A/H1, Influenza A/H3, Influenza B, RSV A, RSV B, Adenovirus, Human Metapneumovirus, Parainfluenz a 1, 2, 3, 4, Rhinovirus, Bordatella parapertussis / bronchiseptica, Bordatella holmesii, Bordatella pertussis. Results from the [facility] Respiratory Pathogens Panel should be interpreted with [...] and / or Influenza B.Performed By: #### CD:[id number] #### [address] [address]Dlibyemulp para/bronchNot detectedNormalNot DetectedCity HospitalComment on above:Performed By: #### CD:[id number] #### [address] [address]Ieaydvenls pertussisNot detectedNormalNot DetectedCity HospitalComment on above:Performed By: #### CD:[id number] #### [address], [place] [address]oJCBAso detectedNormalNot DetectedCity HospitalComment on above:Performed By: #### CD:[id number] #### [address], [place] [address]Ccebtzkwl ANot detectedNormalNot DetectedCity HospitalComment on above:Performed By: #### CD:[id number] #### [address] [address]Ipzqmummk A/H1Not detectedNormalNot DetectedSamaritan North Health Center SystemComment on above:Performed By: #### CD:[id number] #### [address], [place] [address]Doraitrhi A/H3Not detectedNormalNot DetectedSamaritan North Health Center SystemComment on above:Performed By: #### CD:[id number] #### [facility] [address] [facility], [place] [address]Ndmyzynpu BNot detectedNormalNot DetectedSamaritan North Health Center SystemComment on above:Performed By: #### CD:[id number] #### [address], [place] [address]Mndzwfqwmkqzq 1Not detectedNormalNot DetectedSamaritan North Health Center SystemComment on above:Performed By: #### CD:[id number] #### [address], [place] [address]Lrqeohtpqbhrp 2Not detectedNormalNot DetectedSamaritan North Health Center SystemComment on above:Performed By: #### CD:[id number] #### [address], [place] [address]Esgusfzklymis 3Not detectedNormalNot DetectedSamaritan North Health Center SystemComment on above:Performed By: #### CD:[id number] #### [address], [place] [address]Euzddqcxwnjqg 4Not detectedNormalNot DetectedSamaritan North Health Center SystemComment on above:Performed By: #### CD:[id number] #### [address], [place] [address]TmiqghtgqsKze detectedNormalNot DetectedSamaritan North Health Center SystemComment on above:Result Comment: Due to the genetic similarity between human rhinovirus and enterovirus, some strains of enterovirus may be detected as rhinovirus by this assay.Performed By: #### CD:[id number] #### [address], [place] [address]KBQ ANot detectedNormalNot DetectedBlSelect Medical OhioHealth Rehabilitation Hospital - DublinComment on above:Performed By: #### CD:[id number] #### [facility] [address] [place], [place] [address]DEK BNot detectedNormalNot DetectedCity HospitalComment on above:Performed By: #### CD:[id number] #### [facility] [address] [place], [place] [address]HF Chest 1 Viewon 49-77-4283GQ Chest 1 ViewCLINICAL HISTORY: Worsening dyspnea. EXAMINATION: [...] Signed, Electronically Signed in Other Vendor System)[facility].eGFRon 68-07-3618Fnnybrdcu GFR52 mL/min/1.73m?Low >=60City HospitalComment on above:Result Comment: [facility] Laboratories have implemented the eGFR calculation approach [...] 1 Age = yearsPerformed By: #### EGFR ####[address] [address]Lbrdl Metabolic Profileon 24-49-9740Fakre gap [Moles/Vol] 7 mmol/LNormal4-12City HospitalComment on above:Performed By: #### CD:[id number] ####[address] [address]Enqosky [Mass/Vol]8.4 mg/dLLow8.5-10.3BA[facility] Comment on above:Performed By: #### CD:[id number] ####[address] [address]Qgitxefi [Moles/Vol]100 mmol/L Zirzds70-368UxwjuwvriCity HospitalComment on above:Performed By: #### CD:[id number] ####[address] [address]HF9 [Moles/Vol]26 mmol/VHvbxyn33-25ZzybxymqhCity HospitalComment on above:Performed By: #### CD:[id number] ####[address] [address]Xxwzaykkav [Mass/Vol]1.37 mg/dLHigh0.61-1.24 City HospitalComment on above:Performed By: #### CD:[id number] ####[address] [address]Cjllfrq [Mass/Vol]89 mg/jHQtpdsc80-73YkmugstcxCity HospitalComment on above: Performed By: #### CD:[id number] ####[address] [address]Nitvgylke [Moles/Vol]3.7 mmol/LNormal3.4-4.8BAvita Health System Galion HospitalComment on above:Performed By: #### CD:[id number] ####[address] [address]Stuzht [Moles/Vol]133 mmol/XMeivtx909-945WgcteofojCity HospitalComment on above:Performed By: #### CD:[id number] ####[address] [address]Lnvk nitrogen [Mass/Vol]20 mg/dLNormal8-26City HospitalComment on above:Performed By: #### CD:[id number] ####[address] [address]Igbd nitrogen/Creatinine [Mass ratio]14.6 mg/wzYrjecb98.0-20.0City HospitalComment on above:Performed By: #### CD:[id number] ####[address] [address]VVO w/ Diffon 04-17-2024 Erythrocyte distribution width (RBC) [Ratio]18.7 %High11.6-14.8BAvita Health System Galion HospitalComment on above:Performed By: #### CBC ####[address] [address]Czpwadxuhv (Bld) [Volume fraction]26.4 %Low41.0-53.0City HospitalComment on above: Performed By: #### CBC ####[address] [address]Rnacktzxsb (Bld) [Mass/Vol]9.0 g/dLLow13.5-17.5BAvita Health System Galion HospitalComment on above:Performed By: #### CBC ####[address] [address]UVD (RBC) [Entitic mass]31.8 pg Vbvoui49.0-35.0City HospitalComment on above:Performed By: #### CBC ####[address] [address]SSFU81.2 %Yqakoe96.0-37.0City HospitalComment on above:Performed By: #### CBC ####[address] [address]UGP (RBC) [Entitic vol]93.0 gJYfztef71.0-100.0City HospitalComment on above:Performed By: #### CBC ####[address] [address]Ljtztsec053 x10*3/fnBIjofka905-800ZqhviufwnCity HospitalComment on above:Performed By: #### CBC ####[address]Platelet mean volume (Bld) [Entitic vol]6.5 fL Low6.7-10.6BAvita Health System Galion HospitalComment on above:Performed By: #### CBC ####[address] [address]KVM4.84 x10*6/mcLLow4.30-5.80City HospitalComment on above:Performed By: #### CBC ####[address] [address]PUW3.6 x10*3/mcLNormal4.5-11.0City HospitalComment on above:Performed By: #### CBC ####[address] [address]Xvlt Autoon 86-60-6095Jtcb Absolute0.1 x10*3/mcLNormal 0.0-0.2BAvita Health [facility] Gal[facility] HospitalComment on above:Performed By: #### CD:[id number] #### [address] [address]Bueyugjfi/100 WBC (Bld)1.3 %High0.0-1.2BAvita Health System Galion HospitalComment on above:Performed By: #### CD:[id number] #### [address] [address]Dxm Absolute0.3 x10*3/mcLNormal0.0-0.4BAvita Health System Galion HospitalComment on above:Performed By: #### CD:[id number] #### [address], [place] [address]Malijljkapa/100 WBC (Bld)5.4 %Normal0.0-6.1BMcCullough-Hyde Memorial Hospital SystemComment on above:Performed By: #### CD:[id number] #### [address], [place] [address]Unqws Absolute1.6 x10*3/mcLNormal1.0-4.8BAvita Health System Galion HospitalComment on above:Performed By: #### CD:[id number] #### [address] [address]Yxaraczoiwx/100 WBC (Bld)28.7 %Mvudqt13.2-40.8BAvita Health System Galion HospitalComment on above:Performed By: #### CD:[id number] #### [address], [place] [address]Dqsj Absolute0.5 x10*3/mcLNormal0.3-1.1BAvita Health System Galion HospitalComment on above:Performed By: #### CD:[id number] #### [address] [address]Jeigekzih/100 WBC (Bld)9.7 %Normal4.7-13.9BMcCullough-Hyde Memorial Hospital SystemComment on above:Performed By: #### CD:[id number] #### [address], [place] [address]Khzvkt Absolute3.1 x10*3/mcLNormal1.8-7.7BMcCullough-Hyde Memorial Hospital SystemComment on above:Performed By: #### CD:[id number] #### [address], [place] [address]Ftmkme Auto54.9 %Fajqtb01.2-70.8BMcCullough-Hyde Memorial Hospital System Comment on above:Performed By: #### CD:[id number] #### [facility] [address] [place], [place] [address]Esw & Hcton 78-97-6354Szvwjdhbyt (Bld) [Volume fraction]27.2 % Low41.0-53.0City HospitalComment on above:Performed By: #### HGBHCT ####[facility] [place] [address] Hemoglobin (Bld) [Mass/Vol]9.1 g/dLLow13.5-17.5BA[facility] Comment on above:Performed By: #### HGBHCT ####[address] [address]Ucrfhekard Disease Consultationon 04-17-2024 Infectious Disease ConsultationChief Complaint [...] for the tumor. His initial surgery at [facility] in [place]. Postoperatively apparently he gained a lot of fluid weight. He was sent to detention and due to persistent edema he was sent to [facility]. Catheter wasplaced and was found to [...] up either. He was sent back to detention. Apparently wound broke down due to persistent pressure with the back brace on against the bed. At 1 point his lymphedema pump was apparently put on over socks and caused extreme pain due to the tightness. He is doing okay at this point. He does not have any open areas in the legs or feet. He was initially admitted to [facility] with MRI showing a fluid collection. He [...] being told of any fever by the detention. She has been unhappy with the care at the facility. On review of documents from [facility] he was on remdesivir on the and 14 April. However daughter states he was treated for COVIDwhile he was in [facility] earlier in March. Apparently though he did [...] of left hip replacement (more content not included)...NormalCity HospitalMagnesiumon 66-96-0800Fnfbhmwxp [Mass/Vol]2.0 mg/dLNormal 1.7-2.4BAvita Health System Galion HospitalComment on above:Performed By: #### MG #### [place], [place] [address]Operative Reporton 57-69-1714Wmwpuyydn ReportPreoperative Diagnosis lumbar postoperative fluid collection with wound dehiscence Postoperative Diagnosis same Operation Lumbar I&D with wound closure Surgeon(s) [facility] TIDWELL, Randi Mesa (Surgeon - Primary) Advertisement Distributor Mani Hannon PA-C (Grinding Supervisor) Anesthesia General Lupe TIDWELL, Elan Hurtado (Biztalk Consultant) Presley Pereira MD, Alejandro Thomas (Biztalk Consultant) Girish Gonzalez (Provider) Estimated Blood Loss 25 mL Findings small seroma Specimen(s) Sterile Body Sites Culture (Back Wound for aerobic,Tissue,Back) Anaerobic Culture (Back wound for anaerobic,Wound,Back) Complications none Catheters, Drains, Tubes Device: Wound Drain W/Trocar [id number] Electronically signed by Lalo LECHUGA Gustabo Sharpe 04/17/24 07:23 ESTNormBucyrus Community Hospital Sodiumon 05-35-6917Anpquz [Moles/Vol]134 mmol/HRoqnmb688-271AvkyvwpibCity HospitalComment on above:Performed By: #### NA ####[facility] [place], [place] [address]Advdi Troughon 83-55-3623Hauzr Vstihm91.8 mcg/fTYmipvi44.0-15.0City HospitalComment on above: Performed By: #### VANCT #### [address] [address].eGFRon 30-35-1249Tjvanxcvl GFR46 mL/min/1.73m?Low>=60City HospitalComment on above:Result Comment: [facility] Laboratories have implemented the eGFR calculation approach [...] Age = yearsPerformed By: #### EGFR #### [facility] [address] [place] [address]BVP/Rhon 84-16-1921WZV/RhABO/Rh: O POSNormBucyrus Community HospitalComment on above:Performed By: #### VANCT #### [address] [facility], [place] [address]JHFM Autoon 12-25-0168MSJC AutoNegativeNormalCity HospitalComment on above:Performed By: #### ASA #### [facility] (UNKNOWN) [address] [facility], [place] [address]F99mq 25-31-8019Gmyludgzg (Vitamin B12) [Mass/Vol]422 pg/mL Qblvnv829-571RaezxyaucAvita Health System Galion HospitalComment on above:Performed By: #### CD:[id number] #### [facility] [address] [place] [address], [place] [address]Lnqyn Metabolic Profileon 69-83-8303Qzrog gap [Moles/Vol]8 mmol/LNormal4-12City HospitalComment on above:Performed By: #### CD:[id number] #### [address], [place] [address]Xbkpnpt [Mass/Vol]8.5 mg/dLNormal8.5-10.3BAvita Health System Galion HospitalComment on above:Performed By: #### CD:[id number] #### [address], [place] [address]Hmdoebsi [Moles/Vol]96 mmol/IPdp72-147VtqtiksavCity HospitalComment on above:Performed By: #### CD:[id number] #### [address], [place] [address]EN0 [Moles/Vol]26 mmol/YHtqaxc81-09RxlyvwbzbCity HospitalComment on above:Performed By: #### CD:[id number] #### [address], [place] [address]Ongtlesylk [Mass/Vol]1.51 mg/dLHigh0.61-1.24City HospitalComment on above:Performed By: #### CD:[id number] #### [address], [place] [address]Pntwtvr [Mass/Vol]85 mg/cPSaaufs73-77XztxcpzjhCity HospitalComment on above:Performed By: #### CD:[id number] #### [address] [address]Mswopzfbb [Moles/Vol]3.6 mmol/LNormal3.4-4.8BAvita Health System Galion HospitalComment on above:Performed By: #### CD:[id number] #### [address] [address]Ipdhqh [Moles/Vol]130 mmol/NUzz514-497QgjwrklgkCity HospitalComment on above:Performed By: #### CD:[id number] #### [address] [address]Ydqt nitrogen [Mass/Vol]23 mg/dLNormal8-26City HospitalComment on above:Performed By: #### CD:[id number] #### [address] [address]Jrqg nitrogen/Creatinine [Mass ratio]15.2 mg/hrWoujol93.0-20.0 City HospitalComment on above:Performed By: #### CD:[id number] #### [address] [address]EGQ w/ Diffon 44-10-9363Qltliqzgytz distribution width (RBC) [Ratio]15.4 %High11.6-14.8BAvita Health System Galion HospitalComment on above: Performed By: #### CBC ####[address] [address]Onwvdysntm (Bld) [Volume fraction]23.3 %Low41.0-53.0 City HospitalComment on above:Performed By: #### CBC ####[address] [address]Fgnapfolhu (Bld) [Mass/Vol]7.7 g/dLLow13.5-17.5BAvita Health System Galion HospitalComment on above:Performed By: #### CBC ####[address] [address]YJC (RBC) [Entitic mass]32.0 kfRioode12.0-35.0City HospitalComment on above:Performed By: #### CBC ####[place] [address]MCHC33.2 %Qmqjse81.0-37.0 City HospitalComment on above:Performed By: #### CBC ####[place] [address]MCV (RBC) [Entitic vol]96.5 nPGrqmxi78.0-100.0City HospitalComment on above:Performed By: #### CBC ####[address] [address]Jcimbkuk313 x10*3/rrYIrnnzh395-816Iykdeekuf Valley Health SystemComment on above:Performed By: #### CBC ####[place] [address]Platelet mean volume (Bld) [Entitic vol]6.9 fL Normal6.7-10.6BAvita Health System Galion HospitalComment on above:Performed By: #### CBC ####[address] [address]TDC2.41 x10*6/mcLLow4.30-5.80City HospitalComment on above:Performed By: #### CBC ####[address] [address]RVD6.5 x10*3/mcLNormal4.5-11.0City HospitalComment on above:Performed By: #### CBC ####[address] [address]Ddclxmgprm Progress Noteon 90-85-5849Avwocuktnu Progress NoteSubjective PCP: Opal Ga DO ([place], [place]) Cardio: Kathy Mcintyre DO ([facility], [place], [place]) 83M with permanent AF, CHF, CKD, hypercholesterolemia transferred from [facility] for continued treatment of lower extremity edema and perioperative cardiology evaluation. Lower extremity edema suspected of being more related to chronic lymphedema than decompensated heart failure. Interval History: - Surgery reportedly planned for Tuesday, 04/17 at 6 am - No significant events overnight - Fluid balance -720 mL yesterday and -1.1 L since admission to [facility] (-4.7 L at [facility] prior to transfer) - Lower extremity edema decreasing - Denies chest pain, dyspnea, palpitations, or lightheadedness Cardiac Testing Echocardiography > 04/13/24: (Limited) EF 45-50%, mild RV enlargement with mildly reduced systolic function, marked LAE, moderate MARCIA ([facility]) Objective Vitals & Measurements T: 36.7 ?C [...] signed by Frankie Dallas DO 04/16/24 10:16 ESTNormBucyrus Community Hospital Diff Autoon 62-33-8607Cyxj Absolute0.1 x10*3/mcLNormal0.0-0.2BAvita Health System Galion HospitalComment on above:Performed By: #### .Automated Diff ####[address] [address]Qedakbcnl/100 WBC (Bld)0.8 %Normal0.0-1.2[facility] SystemComment on above:Performed By: #### .Automated Diff ####[address] [address]Rid Absolute0.3 x10*3/mcLNormal0.0-0.4BMcCullough-Hyde Memorial Hospital SystemComment on above:Performed By: #### .Automated Diff ####[address] [address]Dglqmxgbfol/100 WBC (Bld)3.8 %Normal0.0-6.1 [facility] SystemComment on above:Performed By: #### .Automated Diff ####[address] [address]Nmzbd Absolute2.5 x10*3/mcLNormal1.0-4.8BMcCullough-Hyde Memorial Hospital SystemComment on above:Performed By: #### .Automated Diff ####[address] [address]Rtrmvpilwzn/100 WBC (Bld)33.2 %Nqliuy34.2-40.8 City HospitalComment on above:Performed By: #### .Automated Diff ####[address] [address]Pyzo Absolute0.5 x10*3/mcLNormal0.3-1.1BAvita Health System Galion HospitalComment on above:Performed By: #### .Automated Diff ####[address] [address]Rxaasfphx/100 WBC (Bld)6.6 %Normal4.7-13.9BMcCullough-Hyde Memorial Hospital SystemComment on above:Performed By: #### .Automated Diff ####[address] [address]Hynnql Absolute4.1 x10*3/mcLNormal1.8-7.7BMcCullough-Hyde Memorial Hospital SystemComment on above:Performed By: #### .Automated Diff ####[address] [address]Zpjgha Auto55.6 %Fzoxrs45.2-70.8BAvita Health System Galion HospitalComment on above:Performed By: #### .Automated Diff ####[address] [address]Bymnkuldwh 04-16-2024 Ferritin Nxu538.5 ng/oKKsbzox82.9-336.2BAvita Health System Galion HospitalComment on above:Performed By: #### FERR ####[address] [address]Ymnnbj Lvlon 64-69-4435Wvyoby Lvl5.9 ng/mLNormal>=5.9 City HospitalComment on above:Result Comment: A WHO Technical Consultation has determined that deficient Folate concentrations are considered to be less than 4 ng/mL.Performed By: #### FOL ####[address] [address]Jkl & Hcton 39-83-3378Htfymdjzrj (Bld) [Volume fraction]26.1 %Low41.0-53.0City HospitalComment on above: Performed By: #### CBC #### [address] [address]Sorrrulieg (Bld) [Mass/Vol]9.0 g/dLLow13.5-17.5BAvita Health System Galion HospitalComment on above:Performed By: #### CBC #### [address] [address]Ygapqbpahuf 61-95-5059Fbmrrbjkw [Mass/Vol]2.0 mg/dLNormal 1.7-2.4BAvita Health System Galion HospitalComment on above:Performed By: #### MG ####[address] [address]Vdhbn Count on 41-48-7082Hulmexbvj Retic Count0.82 %Normal0.80-2.50City HospitalComment on above:Performed By: #### CD:[id number] #### [address] [address]Rndqlffdtq (Bld) [Volume fraction]23.0 %Low41.0-53.0City HospitalComment on above:Performed By: #### CD:[id number] #### [address] [address]Wul Abs0.0370 x10*6/mcLNormalCity Hospital Comment on above:Performed By: #### CD:[id number] #### [address] [address]Wapebqeasowj9.6 %Normal0.8-2.5[facility] Comment on above:Performed By: #### CD:[id number] #### [address] [address]YVKJlt 45-24-9829Lgym [Mass/Vol]26 ug/mMDbz38-938WqfdatosvCity HospitalComment on above:Performed By: #### TIBC ####[address] [address]Znhu Sat11.6 %Low>=16.0 City HospitalComment on above:Performed By: #### TIBC ####[address] [address]AUAP602 mcg/aYZkq978-613SwfvzoiaeCity HospitalComment on above:Performed By: #### TIBC ####[address] [address] Transferrin [Mass/Vol]160 mg/xRTqw217-392NgtfbtuxoCity HospitalComment on above:Performed By: #### TIBC ####[address] [address].AMI 2 Hron Hour Umyosnqek17.8 ng/mLNormal 17.4-105.7BAvita Health System Galion HospitalComment on above:Performed By: #### MG #### [address] [address] Hour Troponin<0.89Bvvuwd6.00-0.03City HospitalComment on above:Result Comment: An increased Troponin-I value, in the absence of myocardial ischemia, may indicate other etiologies of cardiac damage. 99th Percentile Cutoff for Negative/Positive: Negative <= 0.03 Positive >= 0.04Performed By: #### MG #### [address] [address].eGFRon 00-07-7782Tnstdcdvx GFR55 mL/min/1.73m?Low>=60City HospitalComment on above:Result Comment: [facility] Laboratories have implemented the eGFR calculation approach [...] or 1 Age = yearsPerformed By: #### CD:[id number] #### [address] [address]BEBjm 77-18-1797Bffoetednnj peptide B (Bld) [Mass/Vol]166 pg/mL High0-100City HospitalComment on above:Performed By: #### CD:[id number] #### [address] [address]FXD w/ Diffon 60-76-5562Wtgbekhkfxx distribution width (RBC) [Ratio]15.7 %High11.6-14.8BAvita Health System Galion HospitalComment on above: Performed By: #### CBC #### [address], [place] [address]Mxktjwxxwa (Bld) [Volume fraction]26.7 %Low41.0-53.0City HospitalComment on above:Performed By: #### CBC #### [address] [address]Sdscxrzmve (Bld) [Mass/Vol]8.9 g/dLLow13.5-17.5BAvita Health System Galion HospitalComment on above:Performed By: #### CBC #### [address] [address]VRC (RBC) [Entitic mass]32.2 rzKxynna87.0-35.0[facility] HospitalComment on above:Performed By: #### CBC #### [address] [address]PLFK91.5 %Hwsljl70.0-37.0[facility] HospitalComment on above:Performed By: #### CBC #### [address] [address]FCY (RBC) [Entitic vol]96.1 uNHoqjio46.0-100.0[facility] HospitalComment on above:Performed By: #### CBC #### [address] [address]Bndmuawr571 x10*3/swRLmxexu955-284FuxjmqdnnCity HospitalComment on above:Performed By: #### CBC #### [address] [address]Wxvqexdr mean volume (Bld) [Entitic vol]6.7 fLNormal6.7-10.6 City HospitalComment on above:Performed By: #### CBC #### [address] [address]VXG9.78 x10*6/mcLLow4.30-5.80[facility] Comment on above:Performed By: #### CBC #### [address] [address]CNX3.7 x10*3/mcLNormal4.5-11.0[facility] Comment on above:Performed By: #### CBC #### [address] [address]ZSLsh 50-14-6362Dqoosrz [Mass/Vol]3.0 g/dLLow3.2-4.9BAvita Health System Galion HospitalComment on above:Performed By: #### CBC #### [address] [address]Fxrcbte/Globulin [Mass ratio]0.8 {ratio}Low1.1-2.2BAvita Health System Galion HospitalComment on above:Performed By: #### CBC #### [address] [address]Jop Nenl019 IU/SZlti37-18BytiljzhbCity HospitalComment on above:Performed By: #### CBC #### [address] [address]VIN [Catalytic activity/Vol]10 U/FOxn67-99EobqdmgncCity HospitalComment on above:Performed By: #### CBC #### [address] [address]Wjtvb gap [Moles/Vol]7 mmol/LNormal4-12City HospitalComment on above:Performed By: #### CBC #### [address] [address]GVU [Catalytic activity/Vol]19 U/YUskxtr36-78McvwifwyaCity HospitalComment on above:Performed By: #### CBC #### [address] [address]Tvdx Total0.8 mg/dLNormal0.3-1.2BAv[facility] Comment on above:Performed By: #### CBC #### [address] [address]Erscuby [Mass/Vol]8.5 mg/dLNormal8.5-10.3[facility] SystemComment on above:Performed By: #### CBC #### [address] [address]Jpkxolnq [Moles/Vol]95 mmol/ZUrf47-861EgnfwzircCity HospitalComment on above:Performed By: #### CBC #### [address] [address]KC3 [Moles/Vol]27 mmol/OCcghke90-89SnygivegwCity HospitalComment on above:Performed By: #### CBC #### [address] [address]Ugmwnzjdln [Mass/Vol]1.30 mg/dLHigh0.61-1.24City HospitalComment on above:Performed By: #### CBC #### [address] [address]Hepzsuz [Mass/Vol]91 mg/dQGuwktm01-48TcjqynidaCity HospitalComment on above:Performed By: #### CBC #### [address] [address]Mxzsxabck [Moles/Vol]3.2 mmol/LLow3.4-4.8BAvita Health System Galion HospitalComment on above:Performed By: #### CBC #### [address] [address]Bsozpmh [Mass/Vol]6.6 g/dLNormal6.5-8.1BAvita Health System Galion HospitalComment on above:Performed By: #### CBC #### [address] [address]Xwtjrx [Moles/Vol]129 mmol/MOsr108-221KbhwbdwbtCity HospitalComment on above:Performed By: #### CBC #### [address] [address]Ylah nitrogen [Mass/Vol]25 mg/dLNormal8-26City HospitalComment on above:Performed By: #### CBC #### [address] [address]Tmlu nitrogen/Creatinine [Mass ratio]19.2 mg/zwPnnydb07.0-20.0 City HospitalComment on above:Performed By: #### CBC #### [facility] [address] [place], [place] [address]Mykweopjmi Consultationon 34-05-5309Vquiypqttw Consultation Chief Complaint Surgery canceled at [facility] due to swollen legs Reason for Consultation Preoperative cardiology evaluation History of Present Illness PCP: Opal Ga DO ([place], [place]) Cardio: Kathy Mcintyre DO ([place], [place]) 83M with permanent AF, CHF, CKD, hypercholesterolemia transferred from [facility] for continued treatment of lower extremity edema and perioperative cardiology evaluation. - Preop cardiology evaluation by Dr. Mcintyre (02/16/24) reported LVEF 50% by echo - Underwent lumbar decompression with fusion by Dr. Man at [facility] on 02/21/24 - Surgery reportedly complicated by decompensated CHF > Family member claims [facility] Hospitalist gave too much IV fluid and didn't give diuretics - Post-op echo reportedly showed LVEF 35-40% (02/23/24) - Discharged to [facility] in [place], [place], for post-acute rehab - Subsequently developed acute urinary retention, LIS, and acute CHF requiring care at [facility] leading to indwelling Chou catheter - Evaluated in spine clinic 03/23 for concern about surgical site drainage - Presented to [facility] 04/13 for planned I&D but procedure canceled due to 3+ lower extremity edema and elevated BNP level - Admitted to [facility] 04/13/24 for treatment of acute on chronic systolic heart failure - NT-pro-BNP elevated at 4117 (normal is <1800) - High sensitivity troponin I elevated with flat trend (121.8, 116.3, 123.1) - CXR (04/13) report describes mild cardiomegaly, hyperinflated lungs, and minimal bibasilar atelectasis - Admitting physician at [facility] documented the patient had no shortness of breath, no JVD, and clear lungs on auscultation - Limited echo showed LVEF 45-50% - Documented fluid balance at [facility] on 04/14 and 04/15 (prior to transfer): -3.0 L and -1.7L - Transferred to [facility] for preoperative cardiology evaluation before rescheduling I&D - Patient currently denies chest pain, shortness of breath, cough, orthopnea, palpitations, or lightheadedness - Reportedly has chronic edema for which he has used lymphedema pumps nightly for several years Cardiac Testing Echocardiography > 04/13/24: (Limited) EF 45-50%, mild RV enlargement with mildly reduced systolic function, marked LAE, moderate MARCIA ([facility]) Physical Exam Vitals & Measurements T: 37 [...] decompensated CHF upon admission to [facility] > Lower extremity edema is chronic in [...] with fusion (02/2024) [employer] (more content not included)...NormalCity HospitalDiff Autoon 05-58-4445Vdyn Absolute0.1 x10*3/mcLNormal0.0-0.2BAvita Health System Galion HospitalComment on above:Performed By: #### .Automated Diff ####[address] [address]Jxqdjedtq/100 WBC (Bld)0.7 % Normal0.0-1.2BAvita Health System Galion HospitalComment on above:Performed By: #### .Automated Diff ####[address] [address]Wvv Absolute0.3 x10*3/mcLNormal0.0-0.4BAvita Health System Galion HospitalComment on above:Performed By: #### .Automated Diff ####[address] [address]Toqjgvdtigf/100 WBC (Bld)3.9 %Normal0.0-6.1 City HospitalComment on above:Performed By: #### .Automated Diff ####[address] [address]Rmoln Absolute2.2 x10*3/mcLNormal1.0-4.8BAvita Health System Galion HospitalComment on above:Performed By: #### .Automated Diff ####[address] [address]Rmadnvmzbjq/100 WBC (Bld)25.5 %Low27.2-40.8BAvita Health System Galion HospitalComment on above:Performed By: #### .Automated Diff ####[address] [address]Fiig Absolute0.6 x10*3/mcLNormal0.3-1.1BAvita Health System Galion HospitalComment on above:Performed By: #### .Automated Diff ####[address] [address]Stswgigzm/100 WBC (Bld)6.5 %Normal4.7-13.9BAvita Health System Galion HospitalComment on above:Performed By: #### .Automated Diff ####[address] [address]Oplwsg Absolute5.5 x10*3/mcLNormal1.8-7.7BAvita Health System Galion HospitalComment on above:Performed By: #### .Automated Diff ####[address] [address]Iajile Auto63.4 %Tuflnp20.2-70.8BAvita Health System Galion HospitalComment on above:Performed By: #### .Automated Diff ####[address] [address]BGID, PCRon 30-95-8976UAY ONLY Result Called?NoNormalCity HospitalComment on above: Performed By: #### MG #### [address] [address]Hvxadugrpxs Resistant Staph aurus(MRSA)Not detectedNormalNot DetectedCity HospitalComment on above:Result Comment: Mutations or polymorphisms in primer or probe binding regions may affect detectionof new or unknown MRSA variants resulting in a false negative. The Provade Xpert MRSA Assay is a qualitative in [...] to the clinician.Performed By: #### MG #### [address] [address]Judyynalbrq 46-76-3342Ycejesxjk [Mass/Vol]1.9 mg/dLNormal 1.7-2.4BAvita Health System Galion HospitalComment on above:Performed By: #### MG #### [address] [address]Wldlaepqbbwe 43-40-4851Nykesbqcg [Mass/Vol]3.1 mg/dLNormal 2.5-4.6BAvita Health System Galion HospitalComment on above:Performed By: #### PHOS ####[address] [address]Fpkyaafm-Tvb 94-70-5421Gljbdquc I.cardiac [Mass/Vol]ng/mLNormal0.00-0.03City HospitalComment on above:Result Comment: An increased Troponin-I value, in the absence of myocardial ischemia, may indicate other etiologies of cardiac damage. 99th Percentile Cutoff for Negative/Positive: Negative <= 0.03 Positive >= 0.04Performed By: #### TROP ####[address] [address]Jaigjmryl Auto (Bld) [#/Vol]on 51-36-2429Mrekgibdf (Bld) [#/Vol]Automated basophil count0.0-0.1FCommunity Regional Medical Center Basophils/100 WBC Auto (Bld)on 97-65-7800Fvzsphrwu/100 WBC (Bld)Automated basophil %0.2-2.0[facility] HospitalCholesterol in LDL Calc [Mass/Vol]on 90-71-6749Fkaqsylnwuj in LDL [Mass/Vol]Cholesterol in LDL [Mass/volume] in Serum or Plasma by calculationOhio Valley Surgical Hospital Comment on above:<100 mg/dl QYWZKXB672-770 mg/dl NEAR OR ABOVE YRNTFJI677-040 mg/dl BORDERLINE EHKI982-961 mg/dl HIGH>190 mg/dl VERY HIGHCholesterol in VLDL Calc [Mass/Vol]on 31-47-7374Kkysftwdvza in VLDL [Mass/Vol]Cholesterol in VLDL [Mass/volume] in Serum or Plasma by calculationOhio Valley Surgical Hospital Eosinophils/100 WBC Auto (Bld)on 20-59-9965Igsqwpyzrou/100 WBC (Bld)Automated eosinophil %0.9-7.0[facility] HospitalErythrocyte distribution width Auto (RBC) [Ratio]on 73-52-7124Etogonlkbwt distribution width (RBC) [Ratio]Erythrocyte distribution width [Ratio] by Automated count11.0-15.0 [facility] HospitalEstimated glomerular filtration rate (GFR) non- Americanon 94-09-3007VCR/1.73 sq M.predicted among non-blacks MDRD (S/P/Bld) [Vol rate/Area]Estimated glomerular filtration rate (GFR) non- AmericanLow>=60 mL/min/1.73m 2FCommunity Regional Medical CenterGlobulin Calc (S) [Mass/Vol]on 99-94-4429Ixtjfmmy (S) [Mass/Vol]Serum globulin measurement by calculation (mass/volume)[facility] HospitalHematocrit Auto (Bld) [Volume fraction]on 55-40-6096Latglaqnnf (Bld) [Volume fraction]Hematocrit [Volume Fraction] of Blood by Automated uwylaApu73.0-54.0[facility] HospitalHemoglobin [Mass/volume] in Bloodon 52-76-7337Wvdihrtnvp (Bld) [Mass/Vol]Hemoglobin [Mass/volume] in RslcsYox34.0-18.0[facility] HospitalLaboratory - Chemistry and Chemistry - challengeon 04-14-2024 Bilirubin Ql (U)NegativeNEGATIVEOhio Valley Surgical HospitalGlucose (U) [Mass/Vol]NegativeNEGATIVEOhio Valley Surgical HospitalKetones Ql (U) NegativeNEGATIVEOhio Valley Surgical HospitalpH (U)6.5 [pH]5.0-9.0[facility] Blanchard Valley Hospitalpecific gravity (U) [Rel density]1.0101.005-1.025 [facility] HospitalUrobilinogen Qn (U)0.2 {Raghu'U}/dL0.2-1.0 [facility] HospitalAlbumin [Mass/Vol]2.2 g/dLLow3.4-5.0[facility] HospitalALP [Catalytic activity/Vol]104 U/O78-247CspwilcvaOhio Valley Surgical HospitalALT [Catalytic activity/Vol]8 U/IMva62-64LwcrpkrgfOhio Valley Surgical HospitalAST [Catalytic activity/Vol]18 U/F38-97XsiadunplOhio Valley Surgical HospitalBilirubin [Mass/Vol]0.4 mg/dL0.2-1.0[facility] HospitalCalcium [Mass/Vol]8.6 mg/dL8.5-10.1FCommunity Regional Medical Center Chloride [Moles/Vol]100 mmol/X13-947GmizkgygmOhio Valley Surgical HospitalCholesterol [Mass/Vol]107 mg/dL<=200[facility] HospitalCholesterol in HDL [Mass/Vol]48 mg/uH61-65WrjndpmaiOhio Valley Surgical HospitalComment on above:> or =60 mg/dl - LOW CARDIOVASCULAR RISK<40 mg/dl - HIGH CARDIOVASCULAR RISKCO2 [Moles/Vol]29.7 mmol/L21.0-32.0[facility] HospitalCreatinine [Mass/Vol]1.43 mg/dLHigh0.70-1.30[facility] HospitalGFR/1.73 sq M.predicted MDRD (S/P/Bld) [Vol rate/Area]57 mL/min/{1.73_m2}Low>=60 mL/min/1.73m 2FCommunity Regional Medical CenterGlucose [Mass/Vol]73 mg/dLLow 74-106[facility] HospitalMagnesium [Mass/Vol]1.8 mg/dL1.8-2.4 [facility] HospitalNatriuretic peptide B (Bld) [Mass/Vol]4117.0 pg/mLCritically high<=1800.0[facility] HospitalComment on above: RESULTS CALLED TO LORENZA VELAZQUEZ,RNPotassium [Moles/Vol]3.6 mmol/L3.5-5.1 [facility] HospitalProtein [Mass/Vol]6.2 g/dLLow6.4-8.2FUniversity Hospitals Beachwood Medical Centerodium [Moles/Vol]138 mmol/L890-712XqshdtttzOhio Valley Surgical HospitalTriglyceride [Mass/Vol]61 mg/dL<=150Ohio [facility] HospitalTSH Qn10.469 m[IU]/LHigh0.358-3.740[facility] HospitalUrea nitrogen [Mass/Vol]22.0 mg/dLHigh7.0-18.0[facility] HospitalUrea nitrogen/Creatinine [Mass ratio]15.4 mg/mgOhio Valley Surgical Hospital Laboratory - Hematology and Cell countson 16-10-7058Kzyfcemy granulocytes/100 WBC (Bld)0.3 %0.0-0.5FCommunity Regional Medical CenterLaboratory - Specimen informationon 55-33-9873Dwaxhohwlb (U)CLEARCLEARFCommunity Regional Medical CenterColor (U)LT. YELLOWYELLOWOhio Valley Surgical HospitalLaboratory - Urinalysison 24-49-2656Okdafllmd esterase Test strip Ql (U)MODERATEAbnormal NEGATIVEOhio Valley Surgical HospitalMucus Ql (Urine sed)NONE SEENNONE SEEN [facility] HospitalNitrite Ql (U)NegativeNEGATIVEOhio Valley Surgical HospitalProtein Ql (U)NegativeNEG/TRACEOhio Valley Surgical HospitalLeukocytes [#/volume] corrected for nucleated erythrocytes in Blood by Automated counon 88-24-6277ORN corrected for nucl RBC Auto (Bld) [#/Vol] Leukocytes [#/volume] corrected for nucleated erythrocytes in Blood by Automated coun4.0-11.0[facility] HospitalLymphocytes Auto (Bld) [#/Vol]on 71-85-7823Mxzysxcwcie (Bld) [#/Vol]Lymphocytes [#/volume] in Blood by Automated count1.2-3.8[facility] HospitalLymphocytes/100 WBC Auto (Bld)on 26-44-2244Utrdckdkanu/100 WBC (Bld)Lymphocytes/100 leukocytes in Blood by Automated count20.5-60.0[facility] HospitalMCH Auto (RBC) [Entitic mass]on 58-07-9769EFG (RBC) [Entitic mass]MCH [Entitic mass] by Automated count 25.9-34.0[facility] HospitalMCHC Auto (RBC) [Mass/Vol]on 14-09-6901TNIS (RBC) [Mass/Vol]MCHC [Mass/volume] by Automated count29.9-35.2 [facility] HospitalMCV Auto (RBC) [Entitic vol]on 24-25-4383VVE (RBC) [Entitic vol]MCV [Entitic volume] by Automated npydnVqtz21.0-94.0[facility] HospitalMonocytes Auto (Bld) [#/Vol]on 29-46-1469Cpgvfydpz (Bld) [#/Vol]Automated blood monocyte count0.3-0.8[facility] Monocytes/100 WBC Auto (Bld)on 66-38-2700Anqepfawz/100 WBC (Bld)Automated monocyte %1.7-12.0[facility] HospitalNeutrophils Auto (Bld) [#/Vol]on 33-22-0781Edrmnrevwdj (Bld) [#/Vol]Neutrophils [#/volume] in Blood by Automated count1.4-6.5FCommunity Regional Medical CenterNeutrophils/100 WBC Auto (Bld)on 19-94-1147Nuupmqoyxav/100 WBC (Bld)Automated neutrophil %43.0-75.0 [facility] HospitalNo Panel Informationon 18-99-0848Mkfqh Bacteria SMALL #/HPFAbnormalNONE SEENOhio Valley Surgical HospitalUrine Culture ReflexedALREADY ORDEREDOhio Valley Surgical HospitalUrine Occult Blood NegativeNEGATIVEOhio Valley Surgical HospitalUrine Other CastsNONE SEEN #/LPFNONE [facility] HospitalUrine Other CrystalsNone Seen #/HPFNone [facility] CenterUrine RBCNONE SEEN #/HPF0-2 [facility] HospitalUrine Squamous Epithelial CellsNONE SEEN #/LPF NONE/RAREOhio Valley Surgical HospitalUrine LSU35-36 #/HPFAbnormalNONE SEEN [facility] HospitalALREADY ORDEREDOhio Valley Surgical HospitalNONE SEEN #/LPFNONE/RAREOhio Valley Surgical HospitalNone Seen #/HPF 0-2FUniversity Hospitals Beachwood Medical CenterMALL #/HPFAbnormalNONE SEENOhio Valley Surgical HospitalNegativeNEG/TRACEOhio Valley Surgical HospitalCLEAR CLEAROhio Valley Surgical HospitalLT. YELLOWYELLOWOhio Valley Surgical HospitalMODERATEAbnormalNEGATIVEOhio Valley Surgical HospitalNONE SEENNONE SEENOhio Valley Surgical Hospital6.55.0-9.0[facility] 1.0101.005-1.025[facility]0.2 EU/dL0.2-1.0[facility]10-20 #/HPFAbnormalHONORHEALTH REHABILITATION HOSPITALE [facility] Private HospitalTroponin I High Zvuvlhmljxe521.8 pg/mLCritically high4.0-76.1FCommunity Regional Medical CenterComment on above:RESULTS CALLED TO Yoli WillRNCUT-OFF POINTS [...] CONJUNCTIONWITH OTHER DIAGNOSTIC AND CLINICAL INFORMATION.121.8 pg/mLCritically high4.0-76.1FCommunity Regional Medical Center Eosinophils # (Auto)0.4 10 3/uL0.0-0.7FCommunity Regional Medical CenterImmature Granulocyte # (Auto)0.02 10 3/uL0.00-0.03[facility]10.469 u[iU]/mLHigh0.358-3.740[facility]4117.0 pg/mLCritically high<=1800.0[facility]1.8 mg/dL1.8-2.4FCommunity Regional Medical Center107 mg/dL<=200[facility]48 mg/dL40-60 [facility]2.2 g/dLLow3.4-5.0[facility]0.4 10 3/uL0.0-0.7FCommunity Regional Medical Center104 U/N60-752PjwjtvzuxOhio Valley Surgical Hospital61 mg/dL<=150[facility]8 U/LLow 16-63[facility]18 U/F28-87ArvllihocOhio Valley Surgical Hospital15.4FCommunity Regional Medical Center0.02 10 3/uL0.00-0.03[facility]22.0 mg/dLHigh7.0-18.0[facility] 0.3 %0.0-0.5FCommunity Regional Medical Center8.6 mg/dL8.5-10.1FCommunity Regional Medical Center100 mmol/Q96-887SnybxbgwwOhio Valley Surgical Hospital29.7 mmol/L 21.0-32.0[facility]1.43 mg/dLHigh0.70-1.30[facility]57Low>=60 mL/min/1.73m 2FCommunity Regional Medical Center 73 mg/qFVci91-587KszbayuxvOhio Valley Surgical Hospital3.6 mmol/L3.5-5.1FCommunity Regional Medical Center138 mmol/W956-771DfrcdqhupOhio Valley Surgical Hospital0.4 mg/dL0.2-1.0[facility]6.2 g/dLLow6.4-8.2FCommunity Regional Medical CenterPlatelet mean volume Auto (Bld) [Entitic vol]on 93-39-0736Llhiwtyt mean volume (Bld) [Entitic vol]Platelet mean volume [Entitic volume] in Blood by Automated countLow9.5-13.5FCommunity Regional Medical Center Platelets Auto (Bld) [#/Vol]on 70-00-8679Fhwpgvdwb (Bld) [#/Vol]Platelets [#/volume] in Blood by Automated dtnai307-724YooculcdzOhio Valley Surgical Hospital RBC Auto (Bld) [#/Vol]on 69-35-0652RNT (Bld) [#/Vol]Erythrocytes [#/volume] in Blood by Automated countLow4.70-6.10[facility] Bl[facility]ard Valley Hospitalerum or plasma albumin/globulin mass ratioon 23-16-7673Mnzcerm/Globulin [Mass ratio] Serum or plasma albumin/globulin mass ratioOhio Valley Surgical Hospital Serum or plasma anion gap determinationon 25-82-5080Slyit gap [Moles/Vol]Serum or plasma anion gap determinationBlanchard Valley Health System Blanchard Valley Hospitalerum or plasma total cholesterol/high density lipoprotein (HDL) cholesterol mass william 03-58-7491Xpkklymcjnz.total/Cholesterol in HDL [Mass ratio]Serum or plasma total cholesterol/high density lipoprotein (HDL) cholesterol mass ratOhio Valley Surgical HospitalComment on above:3.3 - 4.4 LOW RISK4.4 - 7.1 AVERAGE RISK7.1 - 11.0 MODERATE RISK>11.0 HIGH RISKActivated partial thromboplastin time (aPTT) in platelet poor plasma by coagulation aon 49-97-3138qGGE Coag (PPP) [Time]Activated partial thromboplastin time (aPTT) in platelet poor plasma by coagulation a22.3-36.2FCommunity Regional Medical CenterBasophils Auto (Bld) [#/Vol]on 06-56-1867Swtvvxctj (Bld) [#/Vol]Automated basophil count0.0-0.1 [facility] HospitalBasophils/100 WBC Auto (Bld)on 04-13-2024 Basophils/100 WBC (Bld)Automated basophil %0.2-2.0[facility] HospitalEosinophils/100 WBC Auto (Bld)on 31-72-2232Ecjauptketa/100 WBC (Bld) Automated eosinophil %0.9-7.0[facility] HospitalErythrocyte distribution width Auto (RBC) [Ratio]on 52-50-6996Napbxnykbiw distribution width (RBC) [Ratio]Erythrocyte distribution width [Ratio] by Automated count11.0-15.0 [facility] HospitalEstimated glomerular filtration rate (GFR) non- Americanon 60-04-2638BWJ/1.73 sq M.predicted among non-blacks MDRD (S/P/Bld) [Vol rate/Area]Estimated glomerular filtration rate (GFR) non- AmericanLow>=60 mL/min/1.73m 2FCommunity Regional Medical CenterGlobulin Calc (S) [Mass/Vol]on 64-46-8803Fcuqxzbf (S) [Mass/Vol]Serum globulin measurement by calculation (mass/volume)[facility] HospitalHematocrit Auto (Bld) [Volume fraction]on 93-29-2455Cbdzxzxuwl (Bld) [Volume fraction]Hematocrit [Volume Fraction] of Blood by Automated mueapAci50.0-54.0[facility] HospitalHemoglobin [Mass/volume] in Bloodon 51-46-5317Nicezunppp (Bld) [Mass/Vol]Hemoglobin [Mass/volume] in BirsoToe16.0-18.0[facility] HospitalINR in Platelet poor plasma by Coagulation assayon 62-14-0508DFR Coag (PPP) [Relative time]INR in Platelet poor plasma by Coagulation assay [facility] HospitalComment on above:DESIRED INR:2.0-3.0 CONDITIONS NOT LISTED BELOW2.5-3.5 FOR PROSTHETIC HEART VALVE REPLACEMENT2.5-3.5 RECURRENT THROMBOSISLaboratory - Chemistry and Chemistry - challengeon 28-57-1387Gdcytvw [Mass/Vol]2.5 g/dLLow3.4-5.0[facility] HospitalALP [Catalytic activity/Vol]118 U/AXkcn73-335ZqaposguhOhio Valley Surgical HospitalALT [Catalytic activity/Vol]10 U/MGcb26-96QkagykahjOhio Valley Surgical HospitalAST [Catalytic activity/Vol]25 U/M74-44XjhewbqomOhio Valley Surgical HospitalBilirubin [Mass/Vol]0.5 mg/dL0.2-1.0[facility] HospitalCalcium [Mass/Vol]8.9 mg/dL 8.5-10.1FCommunity Regional Medical CenterChloride [Moles/Vol]99 mmol/L98-107 [facility] HospitalCO2 [Moles/Vol]31.5 mmol/L21.0-32.0[facility] HospitalCreatinine [Mass/Vol]1.62 mg/dLHigh0.70-1.30[facility] HospitalGFR/1.73 sq M.predicted MDRD (S/P/Bld) [Vol rate/Area]50 mL/min/{1.73_m2}Low>=60 mL/min/1.73m 2FCommunity Regional Medical CenterGlucose [Mass/Vol]80 mg/cZ48-868JdiqdcoxyOhio Valley Surgical HospitalNatriuretic peptide B (Bld) [Mass/Vol]2978.0 pg/mLCritically high<=1800.0[facility] HospitalComment on above:RESULTS CALLED TO MARIA INES CARUSO RN IN SURGERY BY Ivis Tobias at 1053Potassium [Moles/Vol]4.5 mmol/L3.5-5.1FCommunity Regional Medical CenterProtein [Mass/Vol]6.9 g/dL6.4-8.2FCommunity Regional Medical Center Sodium [Moles/Vol]137 mmol/Q287-085NhrubhgenOhio Valley Surgical HospitalUrea nitrogen [Mass/Vol]21.0 mg/dLHigh7.0-18.0[facility] HospitalUrea nitrogen/Creatinine [Mass ratio]13.0 mg/mgOhio Valley Surgical Hospital Laboratory - Hematology and Cell countson 45-52-5871Fnidovon granulocytes/100 WBC (Bld)0.3 %0.0-0.5FCommunity Regional Medical CenterLeukocytes [#/volume] corrected for nucleated erythrocytes in Blood by Automated counon 01-00-1536JSZ corrected for nucl RBC Auto (Bld) [#/Vol]Leukocytes [#/volume] corrected for nucleated erythrocytes in Blood by Automated coun4.0-11.0[facility] HospitalLymphocytes Auto (Bld) [#/Vol]on 02-08-5425Cwfpmxtrjvw (Bld) [#/Vol]Lymphocytes [#/volume] in Blood by Automated count1.2-3.8[facility] HospitalLymphocytes/100 WBC Auto (Bld)on 04-13-2024 Lymphocytes/100 WBC (Bld)Lymphocytes/100 leukocytes in Blood by Automated count 20.5-60.0[facility] HospitalMCH Auto (RBC) [Entitic mass]on 52-78-5710XZL (RBC) [Entitic mass]MCH [Entitic mass] by Automated count25.9-34.0 [facility] HospitalMCHC Auto (RBC) [Mass/Vol]on 49-99-6402DXRW (RBC) [Mass/Vol]MCHC [Mass/volume] by Automated count29.9-35.2FCommunity Regional Medical CenterMCV Auto (RBC) [Entitic vol]on 69-30-8550ZIG (RBC) [Entitic vol] MCV [Entitic volume] by Automated wnikjVvvc20.0-94.0[facility] HospitalMonocytes Auto (Bld) [#/Vol]on 79-13-5573Ttjfpnvah (Bld) [#/Vol]Automated blood monocyte count0.3-0.8[facility] HospitalMonocytes/100 WBC Auto (Bld)on 44-02-6695Uyiuytqcv/100 WBC (Bld)Automated monocyte %1.7-12.0 [facility] HospitalNeutrophils Auto (Bld) [#/Vol]on 04-13-2024 Neutrophils (Bld) [#/Vol]Neutrophils [#/volume] in Blood by Automated count 1.4-6.5FCommunity Regional Medical CenterNeutrophils/100 WBC Auto (Bld)on 00-03-9688Gocamnphghx/100 WBC (Bld)Automated neutrophil %43.0-75.0[facility] HospitalNo Panel Informationon 28-59-8392Oypvyfiyrjg # (Auto)0.4 10 3/uL0.0-0.7FCommunity Regional Medical CenterImmature Granulocyte # (Auto)0.02 10 3/uL0.00-0.03[facility] HospitalTroponin I High Sensitivity 123.1 pg/mLCritically high4.0-76.1FCommunity Regional Medical CenterComment on above:RESULTS CALLED TO Yoli Will RNCUT-OFF [...] OTHER DIAGNOSTIC AND CLINICAL INFORMATION.123.1 pg/mLCritically high4.0-76.1 [facility]2978.0 pg/mLCritically high<=1800.0[facility]0.4 10 3/uL0.0-0.7FCommunity Regional Medical Center2.5 g/dLLow3.4-5.0[facility]118 U/WZuwc91-391ZjmrtbighOhio Valley Surgical Hospital10 U/DFli85-41WxmbtsbfzOhio [facility] Hospital25 U/L 15-37[facility]0.02 10 3/uL0.00-0.03[facility]13.0[facility]0.3 %0.0-0.5FCommunity Regional Medical Center21.0 mg/dLHigh7.0-18.0[facility] 8.9 mg/dL8.5-10.1FCommunity Regional Medical Center99 mmol/H23-792VbsiuzxkwOhio Valley Surgical Hospital31.5 mmol/L21.0-32.0[facility]1.62 mg/dLHigh0.70-1.30[facility]50Low>=60 mL/min/1.73m 2 [facility]80 mg/jE56-616EmhexjcgqOhio [facility] Hospital 4.5 mmol/L3.5-5.1FCommunity Regional Medical Center137 mmol/J618-640XwewqlkhyOhio Valley Surgical Hospital0.5 mg/dL0.2-1.0[facility]6.9 g/dL 6.4-8.2FCommunity Regional Medical CenterPlatelet mean volume Auto (Bld) [Entitic vol]on 28-09-0082Mujdsszt mean volume (Bld) [Entitic vol]Platelet mean volume [Entitic volume] in Blood by Automated count9.5-13.5FCommunity Regional Medical CenterPlatelets Auto (Bld) [#/Vol]on 21-46-6217Srtzqfevc (Bld) [#/Vol]Platelets [#/volume] in Blood by Automated aygqv604-888WdaqpnmlvOhio Valley Surgical Hospital Prothrombin time (PT)on 16-88-5268WW Coag (PPP) [Time]Prothrombin time (PT)High 9.0-11.6FCommunity Regional Medical CenterRBC Auto (Bld) [#/Vol]on 89-39-4703KQW (Bld) [#/Vol]Erythrocytes [#/volume] in Blood by Automated countLow4.70-6.10 [facility]ard Valley Hospitalerum or plasma albumin/globulin mass ratioon 08-46-9454Cuywhjt/Globulin [Mass ratio]Serum or plasma albumin/globulin mass ratioBlanchard Valley Health System Blanchard Valley Hospitalerum or plasma anion gap determinationon 29-69-6610Nysax gap [Moles/Vol]Serum or plasma anion gap determinationOhio Valley Surgical HospitalMagnetic resonance imaging reportOrdered By: Palmer Dejesus on 16-17-8461Vsddx reportOHIOHEALTH NEL[facility]VIL[facility] Main [place] [address] [place] [address] MRI Report Signed Patient: Tavo Wallis Jr MR# : [id number] : 1940 Acct:[id number] Age/Sex: 83 / M ADM Date: 5 Loc: MR Room: Type: [facility] Attending Dr: Randi Batista MD Copies to: Randi Burris MD~ Ordering Provider: Randi Burris MD Date of Service: 04/03/24 MR/MR lumbar spine wo con: Z47.89 ([id number]) XR/XR pre/post mri xray: PRE AND POST [...] the foraminal and extraforaminal and lateral zone. Njkgpzrf-jc-jtbmwr right and at least moderate left neural [...] No central canal or neural from narrowing. Idef-io-jlkootze facet degeneration. MR/MR lumbar spine wo con [...] Palmer Dejesus M.D.04/03/2024 5:02 PM Dictation Location: [facility]--23 Transcribed By: [facility] 04/03/241701 Dictated By: Palmer Dejesus MD 04/03/24 1630 Signed By: 04/03/241701 [facility] Work Phone: xr pre/post mri xrayon 31-30-8804UR pre/post mri xray NormalThe [facility] MontgomeryBasic Metabolic Panelon 68-07-9677Lnhej gap [Moles/Vol]12.7 mmol/LNormal6.0-15.0The [facility] MontgomeryComment on above:Performed By: #### BMP ####[address] [place] [address] USACalcium [Mass/Vol]8.2 mg/dLLow8.6-10.3The [facility] MontgomeryComment on above:Performed By: #### BMP ####[address] [place] [address] USAChloride [Moles/Vol]93 mmol/L Spy78-103Jam [facility] MontgomeryComment on above:Performed By: #### BMP ####[address] [place] [address] USACO2 [Moles/Vol]30.7 mmol/OKwntus19.0-31.0The [facility] MontgomeryComment on above:Performed By: #### BMP ####[address] [place] [address] USACreatinine [Mass/Vol]2.22 mg/dLHigh0.70-1.30The [facility] MontgomeryComment on above:Performed By: #### BMP ####[address] [place] [address] USACreatinine Clr Calc Nvekxuou25.04NoCritical access hospital Physician GroupComment on above:Result Comment: PERFORMED BY:[address] [place], [place] [phone] MEDICAL DIRECTORJAJA CATES M.D. Performed By: #### BMP ####[address] [address] USAEstimated GFR28.859 mL/MinNoCritical access hospital Physician GroupComment on above:Performed By: #### BMP ####[address] [address] USAGlucose [Mass/Vol]73 mg/dL Mwbdrw48-558Xwp [facility] Physician GroupComment on above:Result Comment: Random Glucose Reference Range is dependent on time and content of last meal. Glucose of more than 200 mg/dL in a nonstressed, ambulatory subject supports the diagnosis of Diabetes Mellitus. ADA recommended reference rangePerformed By: #### BMP ####[address] [address] USAPotassium [Moles/Vol]3.4 mmol/LLow3.5-5.1The [facility] Health Physician GroupComment on above:Performed By: #### BMP ####[address] [address] USASodium [Moles/Vol]133 mmol/GZoi480-218Ocr [facility] Physician GroupComment on above:Performed By: #### BMP ####[address] [address] USAUrea nitrogen [Mass/Vol]40 mg/dLHigh7-25The [facility] Health Physician GroupComment on above:Performed By: #### BMP ####[address] [address] [place] Calcium [Mass/volume] in Serum or PlasmaOrdered By: Michele Knight on 03-15-2024 Calcium [Mass/Vol]Calcium [Mass/volume] in Serum or PlasmaLow8.6-10.3FCommunity Regional Medical CenterCarbon dioxide, total [Moles/volume] in Serum or Plasma Ordered By: Michele Knight on 87-71-3075DE2 [Moles/Vol]Carbon dioxide, total [Moles/volume] in Serum or Ohuktt90.0-31.0[facility] Chloride [Moles/volume] in Serum or PlasmaOrdered By: Michele Knight on 03-15-2024 Chloride [Moles/Vol]Chloride [Moles/volume] in Serum or CuakmjMnw55-266WkmdmmyovOhio Valley Surgical HospitalCreatinine [Mass/volume] in Serum or PlasmaOrdered By: Michele Knight on 58-75-2305Duffpyfhzk [Mass/Vol]Creatinine [Mass/volume] in Serum or PlasmaHigh0.70-1.30[facility] HospitalGlucose [Mass/volume] in Serum or PlasmaOrdered By: Michele Knight on 24-67-7500Vwannwg [Mass/Vol]Glucose [Mass/volume] in Serum or Zwaqer19-765IltqrozwgOhio Valley Surgical HospitalComment on above:ADA recommended reference rangeRandom Glucose Reference Range is dependent on time and content of last meal. Glucose of more than 200 mg/dL in a nonstressed, ambulatory subject supports the diagnosisof Diabetes Mellitus.No Panel InformationOrdered By: Michele Knight on 29-74-7707Wuuahjscn GFR (CKD-EPI) 28.859 mL/MinOhio Valley Surgical HospitalPharmacy Creatinine Clearance (Chem26.04[facility]28.859 mL/MinOhio Valley Surgical Hospital26.04[facility] HospitalPotassium [Moles/volume] in Serum or PlasmaOrdered By: Michele Knight on 59-44-9063Avqfpflqs [Moles/Vol] Potassium [Moles/volume] in Serum or PlasmaLow3.5-5.1FUniversity Hospitals Beachwood Medical Centererum or plasma anion gap determinationOrdered By: Michele Knight on 83-31-7063Babqo gap [Moles/Vol]Serum or plasma anion gap determination6.0-15.0 [facility] Valley Hospitalodium [Moles/volume] in Serum or PlasmaOrdered By: Michele Knight on 94-00-4313Kkcdfw [Moles/Vol]Sodium [Moles/volume] in Serum or JtwhqgDwg481-606FxbpwglqoOhio Valley Surgical HospitalUrea nitrogen [Mass/volume] in Serum or PlasmaOrdered By: Michele Knight on 31-56-2960Xuhr nitrogen [Mass/Vol] Urea nitrogen [Mass/volume] in Serum or PlasmaHigh7-25[facility] HospitalBasic Metabolic Panelon 69-60-1370Ccpws gap [Moles/Vol]11.4 mmol/LNormal 6.0-15.0The [facility] Health Physician GroupComment on above:Performed By: #### BMP ####[address] [address] USACalcium [Mass/Vol]8.1 mg/dLLow8.6-10.3The [facility] Health Physician GroupComment on above: Performed By: #### BMP ####[address] [address] USAChloride [Moles/Vol]93 mmol/UGpj74-236Qdf [facility] Physician GroupComment on above:Performed By: #### BMP ####[address] [address] USACO2 [Moles/Vol]29.7 mmol/L Uaigic12.0-31.0The [facility] Health Physician GroupComment on above:Performed By: #### BMP ####[address] [address] [place] Creatinine [Mass/Vol]2.39 mg/dLHigh0.70-1.30The [facility] Health Physician GroupComment on above:Performed By: #### BMP ####[address] [address] USACreatinine Clr Calc Djlyzdvi96.73NormMemorial Health System Marietta Memorial Hospitale [facility] Health Physician GroupComment on above:Result Comment: PERFORMED BY:[address] [place], [place] [phone] MEDICAL DIRECTORJAJA CATES M.D.Performed By: #### BMP ####[address] [address] USAEstimated GFR26.413 mL/Min NormalThe [facility] Health Physician GroupComment on above:Performed By: #### BMP ####[address] [address] USAGlucose [Mass/Vol]80 mg/jGXyfnpf29-418Zlh [facility] Physician GroupComment on above: Result Comment: Random Glucose Reference Range is dependent on time and content of last meal. Glucose of more than 200 mg/dL in a nonstressed, ambulatory subject supports the diagnosis of Diabetes Mellitus. ADA recommended reference rangePerformed By: #### BMP ####[address] [address] USAPotassium [Moles/Vol]3.1 mmol/LLow3.5-5.1The [facility] Health Physician GroupComment on above:Performed By: #### BMP ####[address] [address] USASodium [Moles/Vol]131 mmol/IQry065-838Jne [facility] Physician GroupComment on above:Performed By: #### BMP ####[address] [address] USAUrea nitrogen [Mass/Vol]41 mg/dLHigh7-25The [facility] Health Physician GroupComment on above:Performed By: #### BMP ####[address] [address] USABasic Metabolic Panelon 24-00-2919Zmbsu gap [Moles/Vol]11.2 mmol/LNormal6.0-15.0The [facility] Health Physician GroupComment on above:Performed By: #### BMP ####[address] [address] USACalcium [Mass/Vol]8.7 mg/dLNormal8.6-10.3The [facility] Health Physician GroupComment on above:Performed By: #### BMP ####[address] [address] USAChloride [Moles/Vol] 91 mmol/LGkr14-471Oox [facility] Physician GroupComment on above:Performed By: #### BMP ####[address] [place] [address] USACO2 [Moles/Vol]30.0 mmol/QRevzqf38.0-31.0The [facility] Health Physician GroupComment on above:Performed By: #### BMP ####[address] [address] USACreatinine [Mass/Vol]2.27 mg/dLHigh0.70-1.30The [facility] Health Physician GroupComment on above:Performed By: #### BMP ####[address] [address] USACreatinine Clr Calc Nocnepcj42.95NoCritical access hospital Physician GroupComment on above:Result Comment: PERFORMED BY:[address] [place], [place] [phone] MEDICAL DIRECTORJAJA CATES M.D. Performed By: #### BMP ####[address] [address] USAEstimated GFR28.097 mL/MinNoCritical access hospital Physician [facility] HospitalComment on above:Performed By: #### BMP ####[address] [address] USAGlucose [Mass/Vol]143 mg/dL Thfg40-082Byu [facility] Physician GroupComment on above:Result Comment: Random Glucose Reference Range is dependent on time and content of last meal. Glucose of more than 200 mg/dL in a nonstressed, ambulatory subject supports the diagnosis of Diabetes Mellitus. ADA recommended reference rangePerformed By: #### BMP ####[address] [address] USAPotassium [Moles/Vol]3.2 mmol/LLow3.5-5.1The [facility] Health Physician GroupComment on above:Performed By: #### BMP ####[address] [address] USASodium [Moles/Vol]129 mmol/BDsm582-521Xan [facility] Physician GroupComment on above:Performed By: #### BMP ####[address] [place] [address] USAUrea nitrogen [Mass/Vol]36 mg/dLHigh7-25The [facility] Health Physician GroupComment on above:Performed By: #### BMP ####[address] [address] [facility] Basic Metabolic Panelon 68-61-8875Fruvl gap [Moles/Vol]10.1 mmol/LNormal6.0-15.0 The [facility] Health Physician GroupComment on above:Performed By: #### BMP ####[address] [address] USACalcium [Mass/Vol]8.4 mg/dLLow8.6-10.3The [facility] Health Physician GroupComment on above: Performed By: #### BMP ####[address] [address] USAChloride [Moles/Vol]96 mmol/GEyu19-932Ifm [facility] Physician GroupComment on above:Performed By: #### BMP ####[address] USACO2 [Moles/Vol]29.5 mmol/L Rakygk67.0-31.0The [facility] Health Physician GroupComment on above:Performed By: #### BMP ####[address] [address] [place] Creatinine [Mass/Vol]2.33 mg/dLHigh0.70-1.30The [facility] Physician GroupComment on above:Performed By: #### BMP ####[address] [address] USACreatinine Clr Calc Qhzkcakl00.07NormalThe [facility] Health Physician GroupComment on above:Result Comment: PERFORMED BY:[address] [place], [place] [phone] MEDICAL DIRECTORJAJA CATES M.D.Performed By: #### BMP ####[address] [address] USAEstimated GFR27.232 mL/Min NormalThe [facility] Health Physician GroupComment on above:Performed By: #### BMP ####[address] [address] USAGlucose [Mass/Vol]79 mg/xINhlxvw59-605Dhu [facility] Physician GroupComment on above: Result Comment: Random Glucose Reference Range is dependent on time and content of last meal. Glucose of more than 200 mg/dL in a nonstressed, ambulatory subject supports the diagnosis of Diabetes Mellitus. ADA recommended reference rangePerformed By: #### BMP ####[address] USAPotassium [Moles/Vol]3.6 mmol/LNormal3.5-5.1The [facility] Physician GroupComment on above:Performed By: #### BMP ####[address] USASodium [Moles/Vol]132 mmol/BQhk533-049Era [facility] Physician GroupComment on above:Performed By: #### BMP ####[address] [address] USAUrea nitrogen [Mass/Vol]35 mg/dLHigh7-25The [facility] Physician GroupComment on above:Performed By: #### BMP ####[address] [address] USABasic Metabolic Panelon 80-32-0012Evfsd gap [Moles/Vol]11.8 mmol/LNormal6.0-15.0The [facility] Health Physician GroupComment on above:Performed By: #### BMP ####[address] USACalcium [Mass/Vol]8.3 mg/dLLow8.6-10.3The [facility] Physician GroupComment on above:Performed By: #### BMP ####[address] [address] USAChloride [Moles/Vol]100 mmol/L Enrygl97-312Mat [facility] Physician GroupComment on above:Performed By: #### BMP ####[address] [address] USACO2 [Moles/Vol]28.4 mmol/UPdznpg61.0-31.0The [facility] Physician GroupComment on above:Performed By: #### BMP ####[address] [address] USACreatinine [Mass/Vol]2.69 mg/dLHigh0.70-1.30The [facility] Physician GroupComment on above:Performed By: #### BMP ####[address] USACreatinine Clr Calc Dleinlxd50.96NormHCA [facility] Physician GroupComment on above:Result Comment: PERFORMED BY:[address] [place], [place] [phone] MEDICAL DIRECTORJAJA CATES M.D. Performed By: #### BMP ####[address] [address] USAEstimated GFR22.919 mL/MinNoCritical access hospital Physician [facility] HospitalComment on above:Performed By: #### BMP ####[address] [address] USAGlucose [Mass/Vol]97 mg/dL Pzhnya91-548Lce [facility] Physician [facility] HospitalComment on above:Result Comment: Random Glucose Reference Range is dependent on time and content of last meal. Glucose of more than 200 mg/dL in a nonstressed, ambulatory subject supports the diagnosis of Diabetes Mellitus. ADA recommended reference rangePerformed By: #### BMP ####[address] [address] USAPotassium [Moles/Vol]4.2 mmol/LNormal3.5-5.1The [facility] Group Comment on above:Performed By: #### BMP ####[address] [address] USASodium [Moles/Vol]136 mmol/LMajddg187-491Ubb [facility] Physician [facility] HospitalComment on above:Performed By: #### BMP ####[address] USAUrea nitrogen [Mass/Vol]39 mg/dLHigh7-25The [facility] Physician GroupComment on above: Performed By: #### BMP ####[facility] [place] [address] USAAlanine aminotransferase [Enzymatic activity/volume] in Serum or PlasmaOrdered By: Marcos Martin on 73-25-2388PUE [Catalytic activity/Vol]Alanine aminotransferase [Enzymatic activity/volume] in Serum or Plasma7-52[facility] HospitalAlbumin [Mass/volume] in Serum or Plasma by Bromocresol green (BCG) dye binding methoOrdered By: Marcos Martin on 38-44-3617Utcizik BCG dye [Mass/Vol]Albumin [Mass/volume] in Serum or Plasma by Bromocresol green (BCG) dye binding methoLow3.5-5.7FCommunity Regional Medical CenterAlkaline phosphatase [Enzymatic activity/volume] in Serum or PlasmaOrdered By: Marcos Martin on 71-24-7875QEM [Catalytic activity/Vol]Alkaline phosphatase [Enzymatic activity/volume] in Serum or PtzyjlPvmb27-756PdoppchihOhio Valley Surgical HospitalAppearance of UrineOrdered By: Marcos Martin on 05-19-3936Bqcxkqeopt (U)Urine appearanceCleGrand Lake Joint Township District Memorial HospitalAspartate aminotransferase [Enzymatic activity/volume] in Serum or PlasmaOrdered By: Marcos Martin on 10-86-0899NZM [Catalytic activity/Vol]Aspartate aminotransferase [Enzymatic activity/volume] in Serum or Hxewql46-15LzmwbziauOhio Valley Surgical HospitalB-Type Natriuretic Peptideon 76-58-5182Svbbrkrhpol peptide B (Bld) [Mass/Vol]254.0 pg/mLHigh5-100The [facility] Health Physician GroupComment on above: Result Comment: PERFORMED BY:[address] [place], [place] [phone] MEDICAL DIRECTORJAJA WHITE M.D.Performed By: #### CBC, CK, PT, BNP, PTT, HS TROP ####[facility] [place] [address] USABacteria [Presence] in Urine by AutomatedOrdered By: Marcos Martin on 35-14-8204Zjpngszz Auto Ql (U) Bacteria [Presence] in Urine by AutomatedNone [facility] CenterBasic Metabolic Panelon 36-76-0370Hdlyy gap [Moles/Vol]8.3 mmol/LNormal 6.0-15.0The [facility] Physician GroupComment on above:Performed By: #### CUBLD, LACTIC, HEPATIC, TSH3, BMP ####[address] [place] [address] USACalcium [Mass/Vol]8.3 mg/dLLow8.6-10.3The [facility] Physician GroupComment on above:Performed By: #### CUBLD, LACTIC, HEPATIC, TSH3, BMP ####[address] [address] [place] Chloride [Moles/Vol]98 mmol/CDeeiqi00-483Coo [facility] Physician [facility] HospitalComment on above:Performed By: #### CUBLD, LACTIC, HEPATIC, TSH3, BMP ####[address] USACO2 [Moles/Vol]30.2 mmol/IYruoug49.0-31.0The [facility] Physician GroupComment on above:Performed By: #### CUBLD, LACTIC, HEPATIC, TSH3, BMP ####[address] [address] USACreatinine [Mass/Vol]3.07 mg/dLHigh0.70-1.30 The [facility] Health Physician GroupComment on above:Performed By: #### CUBLD, LACTIC, HEPATIC, TSH3, BMP ####[address] [address] USACreatinine Clr Calc Crofzdjm99.97NormHCA [facility] Hospital Physician Group Comment on above:Result Comment: PERFORMED BY:[address] [place]ESNEW [place], [place] [phone] MEDICAL DIRECTORJAJA CATES M.D.Performed By: #### CUBLD, LACTIC, HEPATIC, TSH3, BMP ####[address] [address] USAEstimated GFR19.558 mL/MinNormalThSaint Alphons[facility] Physician [facility] HospitalComment on above:Performed By: #### CUBLD, LACTIC, HEPATIC, TSH3, BMP ####[place] [address] USAGlucose [Mass/Vol]125 mg/uFRppz40-800Wsm [facility] Physician GroupComment on above:Result Comment: Random Glucose Reference Range is dependent on time and content of last meal. Glucose of more than 200 mg/dL in a nonstressed, ambulatory subject supports the diagnosis of Diabetes Mellitus. ADA recommended reference rangePerformed By: #### CUBLD, LACTIC, HEPATIC, TSH3, BMP ####[place] [address] USAPotassium [Moles/Vol]4.5 mmol/LNormal3.5-5.1 The [facility] Physician [facility] HospitalComment on above:Performed By: #### CUBLD, LACTIC, HEPATIC, TSH3, BMP ####[place] [address] USASodium [Moles/Vol]132 mmol/HTvs977-249Cro [facility] Physician [facility] Comment on above:Performed By: #### CUBLD, LACTIC, HEPATIC, TSH3, BMP ####[address] USAUrea nitrogen [Mass/Vol]40 mg/dLHigh7-25The [facility] Physician [facility] HospitalComment on above:Performed By: #### CUBLD, LACTIC, HEPATIC, TSH3, BMP ####[place] [address] USABasophils Auto (Bld) [#/Vol]Ordered By: Marcos Martin on 39-73-0887Ywmhxvrnx (Bld) [#/Vol]Automated basophil count0.0-0.2FCommunity Regional Medical CenterBasophils/100 WBC Auto (Bld)Ordered By: Marcos Martin on 51-90-1165Qubpdvnce/100 WBC (Bld)Automated basophil %.Ohio [facility] Surgical HospitalBilirubin Test strip Ql (U)Ordered By: Marcos Martin on 77-73-5028Etqeqoeol Ql (U)Bilirubin.total [Presence] in Urine by Test stripNegativeOhio Valley Surgical HospitalBilirubin.direct [Mass/volume] in Serum or PlasmaOrdered By: Marcos Martin on 03-10-2024 Bilirubin.direct [Mass/Vol]Bilirubin.direct [Mass/volume] in Serum or PlasmaHigh 0.03-0.18FCommunity Regional Medical CenterBilirubin.total [Mass/volume] in Serum or PlasmaOrdered By: Marcos Martin on 56-11-4585Pglszjwhf [Mass/Vol] Bilirubin.total [Mass/volume] in Serum or Plasma0.3-1.0[facility] HospitalBioFire Detectedon 03-35-8536WzbObqt DetectedDetectedCritically abnormalNot DetecteThe [facility] Health Physician GroupComment on above:Result Comment: This is a duplicate RP2.1 COVID (PCR) result to be used for statistical tracking purpose only.PERFORMED BY:[address]DRIDGEDIETRICH, [place] [phone] MEDICAL DIRECTORJAJA WHITE M.D.Performed By: #### BIOFIRECOVDET, RESP PANEL UPP. ####[id number] USABlood Cultureon 81-63-0612Xqiwicmf identified Cx Nom (Bld)NO GROWTH 5 DAYS PERFORMED BY: [facility] [id number] PATHOLOGIST EXPLOSIVE ORDNANCE TECHNICIAN JAJA CATES M.D.NormalThe [facility] Health Physician GroupComment on above: Performed By: #### CUBLD, LACTIC, HEPATIC, TSH3, BMP ####[id number] USACOVID-19 Detected/Not Detected Ordered By: Marcos Martin on 32-04-7743KVLN-CoV-2 (COVID-19) RNA SMITHA+non-probe Ql (Nph)Not detectedAbnormalNot DetectWyandot Memorial HospitalComment on above:This is a duplicate RP2.1 COVID (PCR) result to be used for statistical tracking purpose only.Calcium [Mass/volume] in Serum or PlasmaOrdered By: Marcos Martin on 01-08-0853Zbvqojg [Mass/Vol]Calcium [Mass/volume] in Serum or PlasmaLow 8.6-10.3FCommunity Regional Medical CenterCarbon dioxide, total [Moles/volume] in Serum or PlasmaOrdered By: Marcos Martin on 34-10-8029LE0 [Moles/Vol]Carbon dioxide, total [Moles/volume] in Serum or Dnjzup91.0-31.0[facility] Surgical HospitalChloride [Moles/volume] in Serum or PlasmaOrdered By: Marcos Martin on 04-19-8473Zjyzrrkf [Moles/Vol]Chloride [Moles/volume] in Serum or Plasma 98-107Ohio [facility] Surgical HospitalColor Auto (U)Ordered By: Marcos Martin on 47-71-7224Rjdyu (U)Color of Urine by AutoYellowOhio Valley Surgical Hospital Complete Blood Count Auto Diffon 76-72-6546Gnjtntngh (Bld) [#/Vol]0.1 10*3/uL Normal0.0-0.2The [facility] Health Physician GroupComment on above:Result Comment: PERFORMED BY:[address] [place], [place] [phone] MEDICAL DIRECTORJAJA CATES M.D. Performed By: #### CBC, CK, PT, BNP, PTT, HS TROP ####[address] [address] USABasophils/100 WBC (Bld)1.4 %Normal. The [facility] Health Physician GroupComment on above:Performed By: #### CBC, CK, PT, BNP, PTT, HS TROP ####[address] [address] USAEosinophils (Bld) [#/Vol]0.5 10*3/uLHigh0.0-0.45The [facility] Physician GroupComment on above:Performed By: #### CBC, CK, PT, BNP, PTT, HS TROP ####[address] [address] [place] Eosinophils/100 WBC (Bld)5.9 %Normal.The [facility] Physician GroupComment on above:Performed By: #### CBC, CK, PT, BNP, PTT, HS TROP ####[place] [address] USAErythrocyte distribution width (RBC) [Ratio]15.4 %High12.0-14.8The [facility] Health Physician GroupComment on above: Performed By: #### CBC, CK, PT, BNP, PTT, HS TROP ####[place] [address] USAHematocrit (Bld) [Volume fraction] 27.9 %Low38.8-50.0The [facility] Health Physician GroupComment on above:Performed By: #### CBC, CK, PT, BNP, PTT, HS TROP ####[place] [address] USAHemoglobin (Bld) [Mass/Vol]9.3 g/dLLow13.0-17.0The [facility] Physician GroupComment on above:Performed By: #### CBC, CK, PT, BNP, PTT, HS TROP ####[place] [address] USALymphocytes (Bld) [#/Vol]1.0 10*3/uLNormal1.00-4.8The [facility] Health Physician GroupComment on above:Performed By: #### CBC, CK, PT, BNP, PTT, HS TROP ####[place] [address] [place] Lymphocytes/100 WBC (Bld)11.9 %Normal.The Unc Health Physician GroupComment on above:Performed By: #### CBC, CK, PT, BNP, PTT, HS TROP ####[place] [address] USAMCH (RBC) [Entitic mass]33.6 crRjlvyg62.5-35.2The Unc Health Physician GroupComment on above:Performed By: #### CBC, CK, PT, BNP, PTT, HS TROP ####[address] [place] [address] USAMCV (RBC) [Entitic vol]100.5 eJZpvxxa85.5-101The Unc Health Physician GroupComment on above:Performed By: #### CBC, CK, PT, BNP, PTT, HS TROP ####[place] [id number] USAMean Corpuscular HGB Conc33.5 g/sYBgjcle24.5-35.6The Unc Health Physician GroupComment on above:Performed By: #### CBC, CK, PT, BNP, PTT, HS TROP ####[place] [id number] [place] Monocytes (Bld) [#/Vol]0.8 10*3/uLNormal0.0-0.8The [facility] Comment on above:Performed By: #### CBC, CK, PT, BNP, PTT, HS TROP ####[place] [id number] USAMonocytes/100 WBC (Bld)22.24 %High0.00-20.00The Unc Health Physician GroupComment on above:Result Comment: For adults in ED, MDW > 20.0 may be associated with a higher risk of sepsis during the first 12 hrs of hospital admissionPerformed By: #### CBC, CK, PT, BNP, PTT, HS TROP ####[place] [id number] USAMonocytes/100 WBC (Bld)9.2 %Normal.The Unc Health Physician GroupComment on above:Performed By: #### CBC, CK, PT, BNP, PTT, HS TROP ####[place] [id number] [place] Neutrophils (Bld) [#/Vol]6.1 10*3/uLNormal1.8-7.7The [facility] Comment on above:Performed By: #### CBC, CK, PT, BNP, PTT, HS TROP ####[place] [id number] USANeutrophils/100 WBC (Bld)71.6 %Normal.The Unc Health Physician GroupComment on above:Performed By: #### CBC, CK, PT, BNP, PTT, HS TROP ####[place] [address] USANRBC%0.0 /100{WBC}Normal0-0.5The Unc Health Physician GroupComment on above:Performed By: #### CBC, CK, PT, BNP, PTT, HS TROP ####[address] Platelet mean volume (Bld) [Entitic vol]7.6 fLNormal6.6-10.1The Unc Health Physician GroupComment on above:Performed By: #### CBC, CK, PT, BNP, PTT, HS TROP ####[address] Platelets (Bld) [#/Vol]247 10*3/xXSiarvc082-558Aux [facility] Comment on above:Performed By: #### CBC, CK, PT, BNP, PTT, HS TROP ####[place] [address] USARBC (Bld) [#/Vol] 2.78 10*6/uLLow3.90-5.60The Un[facility] Health Physician GroupComment on above:Performed By: #### CBC, CK, PT, BNP, PTT, HS TROP ####[place] [address] USAWBC (Bld) [#/Vol]8.5 10*3/uLNormal4.1-10.5The Unc Health Physician GroupComment on above:Performed By: #### CBC, CK, PT, BNP, PTT, HS TROP ####[address]Creatine Kinaseon 03-86-9123MK [Catalytic activity/Vol]22 U/JBcs41-312 The Unc Health Physician GroupComment on above:Performed By: #### CBC, CK, PT, BNP, PTT, HS TROP ####[address] [place] [address] USACreatine kinase [Enzymatic activity/volume] in Serum or Plasma Ordered By: Marcos Martin on 41-23-6370YY [Catalytic activity/Vol]Creatine kinase [Enzymatic activity/volume] in Serum or FkxarhWkp41-540FfjwqindlOhio Valley Surgical HospitalCreatinine [Mass/volume] in Serum or PlasmaOrdered By: Marcos Martin on 18-23-2539Zkdmyarvkw [Mass/Vol]Creatinine [Mass/volume] in Serum or Plasma High0.70-1.30[facility] Surgical HospitalDipstick and Microscopicon 87-33-3133Uewixtngon (U)ClearNormalClearThe Unc Health Physician GroupComment on above:Order Comment: Name Collection Type:: Chou CatheterPerformed By: #### ADDONUAPLUS ####[address] [address] USABacteria,UrineNone SeenNormalNone SeenThe [facility] Health Physician Group Comment on above:Order Comment: Name Collection Type:: Chou CatheterPerformed By: #### ADDONUAPLUS ####[address] [address] USABilirubin,UrineNegativeNormalNegativeBaptist Health Wolfson Children'S Hospital Physician GroupComment on above:Order Comment: Name Collection Type:: Chou CatheterPerformed By: #### ADDONUAPLUS ####[address] [address] USAColor (U)Light-YellowNormalYellowBaptist Health Wolfson Children'S Hospital Physician GroupComment on above:Order Comment: Name Collection Type:: Chou CatheterPerformed By: #### ADDONUAPLUS ####[address] [address] USAGlucose Ql (U)NormalNormalNormalThe Unc Health Physician GroupComment on above:Order Comment: Name Collection Type:: Chou CatheterPerformed By: #### ADDONUAPLUS ####[address] [address] USAHyaline Casts,UrineInnumerableHigh0-8The Unc Health Physician GroupComment on above:Order Comment: Name Collection Type:: Chou CatheterPerformed By: #### ADDONUAPLUS ####[address] [address] USAKetones Ql (U)NegativeNormalNegative The Unc Health Physician GroupComment on above:Order Comment: Name Collection Type:: Chou CatheterPerformed By: #### ADDONUAPLUS ####[address] [address] USALeukocyte esterase Test strip Ql (U)NegativeNormalNegativeThe Unc Health Physician GroupComment on above:Order Comment: Name Collection Type:: Chou CatheterPerformed By: #### ADDONUAPLUS ####[address] [address] [place] Mucus,UrineRareNormalThe Unc Health Physician GroupComment on above:Order Comment: Name Collection Type:: Chou CatheterResult Comment: PERFORMED BY:[place] [address] [address] [place] [place] [phone] 41PATHOLOGIST MEDICAL DIRECTORJAJA CATES M.D.Performed By: #### ADDONUAPLUS ####[address] [address] USANitrite,UrineNegativeNormalNegativeThe Unc Health Physician GroupComment on above:Order Comment: Name Collection Type:: Chou CatheterPerformed By: #### ADDONUAPLUS ####[address] [address] USAOccult Blood,UrineTraceHighNegativeBaptist Health Wolfson Children'S Hospital Physician GroupComment on above:Order Comment: Name Collection Type:: Chou CatheterResult Comment: PERFORMED BY:[place] [address] [address] [place]ESPAM[place] [place] [phone] MEDICAL DIRECTORJAJA CATES M.D. Performed By: #### ADDONUAPLUS ####[address] [address] USApH (U)5.0 [pH]Normal5.0-9.0The Un[facility] Health Physician GroupComment on above:Order Comment: Name Collection Type:: Chou Catheter Performed By: #### ADDONUAPLUS ####[address] [address] USAProtein,UrineNegativeNormalNegativeBaptist Health Wolfson Children'S Hospital Physician GroupComment on above:Order Comment: Name Collection Type:: Chou CatheterPerformed By: #### ADDONUAPLUS ####[address] [address] USARBC,Urine5 [HPF]High0-4The Un[facility] Health Physician GroupComment on above:Order Comment: Name Collection Type:: Chou Catheter Performed By: #### ADDONUAPLUS ####[address] [address] USASpecificy Randolph,Urine1.059Rexmcl7.001-1.030The Un[facility] Health Physician GroupComment on above:Order Comment: Name Collection Type:: Chou CatheterPerformed By: #### ADDONUAPLUS ####[address] [address] USASquamous Epithelial Cell,Urine1 [HPF] Normal0-2The [facility] Health Physician GroupComment on above:Order Comment: Name Collection Type:: Chou CatheterPerformed By: #### ADDONUAPLUS ####[address] [address] USAUrobilinogen,Urine NormalNormalNormMemorial Health System Marietta Memorial Hospitale Un[facility] Health Physician GroupComment on above:Order Comment: Name Collection Type:: Chou CatheterPerformed By: #### ADDONUAPLUS ####[address] [address] [place] WBC,Urine5 [HPF]High0-4The Un[facility] Health Physician GroupComment on above:Order Comment: Name Collection Type:: Chou CatheterPerformed By: #### ADDONUAPLUS ####[address] [address] USAECG 12 lead ECGon 79-96-2386RJA 12 lead ECGNormMemorial Health System Marietta Memorial Hospitale [facility] Eosinophils Auto (Bld) [#/Vol]Ordered By: Marcos Martin on 21-98-8133Bwondoojajv (Bld) [#/Vol]Automated eosinophil countHigh0.0-0.45[facility] Surgical HospitalEosinophils/100 WBC Auto (Bld)Ordered By: Marcos Martin on 03-10-2024 Eosinophils/100 WBC (Bld)Automated eosinophil %.[facility] Surgical HospitalEpithelial cells.squamous [#/area] in Urine sediment by Automated count Ordered By: Marcos Martin on 66-80-1227Drtuulrkdq cells.squamous Auto (Urine sed) [#/Area]Epithelial cells.squamous [#/area] in Urine sediment by Automated count 0-2FCommunity Regional Medical CenterErythrocyte distribution width Auto (RBC) [Ratio]Ordered By: Marcos Martin on 01-86-8467Hpxidvwjakd distribution width (RBC) [Ratio]Erythrocyte distribution width [Ratio] by Automated obxbiTscr76.0-14.8 [facility] HospitalErythrocytes [#/area] in Urine sediment by Automated countOrdered By: Marcos Martin on 38-08-6346ZEA Auto (Urine sed) [#/Area]Erythrocytes [#/area] in Urine sediment by Automated countHigh0-4 [facility] HospitalGlobulin Calc (S) [Mass/Vol]Ordered By: Marcos Martin on 53-20-1898Kvzoibhe (S) [Mass/Vol]Serum globulin measurement by calculation (mass/volume)[facility] HospitalGlucose [Mass/volume] in Serum or PlasmaOrdered By: Marcos Martin on 28-10-7160Mruswut [Mass/Vol]Glucose [Mass/volume] in Serum or FrmkokLmpb22-178BxbtssrpzOhio Valley Surgical Hospital Comment on above:ADA recommended reference rangeRandom Glucose Reference Range is dependent on time and content of last meal. Glucose of more than 200 mg/dL in a nonstressed, ambulatory subject supports the diagnosisof Diabetes Mellitus. Glucose [Mass/volume] in Urine by Test stripOrdered By: Marcos Martin on 86-52-9604Myvyori Test strip (U) [Mass/Vol]Glucose [Mass/volume] in Urine by Test stripNormalOhio Valley Surgical HospitalHematocrit Auto (Bld) [Volume fraction]Ordered By: Marcos Martin on 65-10-6805Itqlfdqvaa (Bld) [Volume fraction] Hematocrit [Volume Fraction] of Blood by Automated zdpczRip32.8-50.0[facility] HospitalHemoglobin Test strip Ql (U)Ordered By: Marcos Martin on 44-35-1982Lbhhgnaqsv Ql (U)Hemoglobin [Presence] in Urine by Test stripHigh NegativeOhio Valley Surgical HospitalHemoglobin [Mass/volume] in Blood Ordered By: Marcos Martin on 52-39-2967Cqmksdshcn (Bld) [Mass/Vol]Hemoglobin [Mass/volume] in JebhkGdk70.0-17.0[facility] HospitalHepatic Panel on 40-86-0041Irlbebm [Mass/Vol]2.7 g/dLLow3.5-5.7The [facility] Comment on above:Performed By: #### CUBLD, LACTIC, HEPATIC, TSH3, BMP ####[place] [address] [place] [id number] [place] Albumin/Globulin [Mass ratio]0.9 {ratio}NormalThe [facility] Comment on above:Performed By: #### CUBLD, LACTIC, HEPATIC, TSH3, BMP ####[place] [address] [place] [address] USAALP [Catalytic activity/Vol]111 U/VHlcg31-477Tmf Un[facility] Health Physician GroupComment on above:Performed By: #### CUBLD, LACTIC, HEPATIC, TSH3, BMP ####[address] [address] USAALT [Catalytic activity/Vol]10 U/LNormal7-52The [facility] Health Physician GroupComment on above: Performed By: #### CUBLD, LACTIC, HEPATIC, TSH3, BMP ####[address] [address] USAAST [Catalytic activity/Vol]18 U/MVicmzm13-25Fuh [facility] Health Physician GroupComment on above:Performed By: #### CUBLD, LACTIC, HEPATIC, TSH3, BMP ####[address] [address] USABilirubin [Mass/Vol]0.6 mg/dLNormal0.3-1.0The [facility] Health Physician GroupComment on above:Performed By: #### CUBLD, LACTIC, HEPATIC, TSH3, BMP ####[place] [address] USABilirubin,Indirect0.4 mg/dLNoCritical access hospital Physician [facility] Comment on above:Performed By: #### CUBLD, LACTIC, HEPATIC, TSH3, BMP ####[address] Bilirubin.indirect [Mass/Vol]0.20 mg/dLHigh0.03-0.18The [facility] Health Physician GroupComment on above:Performed By: #### CUBLD, LACTIC, HEPATIC, TSH3, BMP ####[address] Globulin (S) [Mass/Vol]3.0 g/dLNoCritical access hospital Physician [facility] HospitalComment on above:Performed By: #### CUBLD, LACTIC, HEPATIC, TSH3, BMP ####[place] [address] USAProtein [Mass/Vol]5.7 g/dLLow6.4-8.9The [facility] Health Physician GroupComment on above:Performed By: #### CUBLD, LACTIC, HEPATIC, TSH3, BMP ####[place] [address] USAHyaline casts [#/area] in Urine sediment by Automated countOrdered By: Marcos Martin on 76-65-8273Kxbnhfz casts Auto (Urine sed) [#/Area]Hyaline casts [#/area] in Urine sediment by Automated countHigh0-8 [facility] HospitalINR in Platelet poor plasma by Coagulation assayOrdered By: Marcos Martin on 96-45-2291JEN Coag (PPP) [Relative time]INR in Platelet poor plasma by Coagulation assayOhio Valley Surgical Hospital Comment on above:INR Therapeutic Range A) [...] Ql (U)Ketones [Presence] in Urine by Test stripNegativeOhio Valley Surgical HospitalLaboratory - Microbiology and Antimicrobial susceptibilityOrdered By: Marcos Martin on 73-70-2507Yhtbipoe identified Cx Nom (Bld)NO GROWTH 5 DAYSOhio Valley Surgical HospitalBacteria identified Cx Nom (Bld)NO GROWTH 5 DAYSOhio Valley Surgical HospitalLactate [Moles/volume] in Serum or PlasmaOrdered By: Marcos Martin on 72-39-9473Qktumez [Moles/Vol]Lactate [Moles/volume] in Serum or Plasma0.5-2.2FCommunity Regional Medical CenterLactic Acidon 99-88-4027Ntucgkl [Moles/Vol]1.2 mmol/LNormal0.5-2.2The Unc Health Physician GroupComment on above:Result Comment: PERFORMED BY:[facility] [place] [address] [place], [place] [phone] MEDICAL DIRECTORJAJA CATES M.D.Performed By: #### CUBLD, LACTIC, HEPATIC, TSH3, BMP ####[facility] [place] [address] USALeukocyte esterase [Presence] in Urine by Test stripOrdered By: Marcos Martin on 21-27-0036Cxljsrwsv esterase Test strip Ql (U)Leukocyte esterase [Presence] in Urine by Test stripNegativeOhio Valley Surgical HospitalLeukocytes [#/area] in Urine sediment by Automated countOrdered By: Marcos Martin on 25-35-9328PGH Auto (Urine sed) [#/Area]Leukocytes [#/area] in Urine sediment by Automated countHigh0-4FCommunity Regional Medical CenterLeukocytes [#/volume] corrected for nucleated erythrocytes in Blood by Automated counOrdered By: Marcos Martin on 31-62-2297KSN corrected for nucl RBC Auto (Bld) [#/Vol]Leukocytes [#/volume] corrected for nucleated erythrocytes in Blood by Automated coun 4.1-10.5FCommunity Regional Medical CenterLymphocytes Auto (Bld) [#/Vol]Ordered By: Marcos Martin on 48-95-0917Olergtnpdul (Bld) [#/Vol]Lymphocytes [#/volume] in Blood by Automated count1.00-4.8[facility] Surgical HospitalLymphocytes/100 WBC Auto (Bld)Ordered By: Marcos Martin on 43-75-7390Lmswchlrldw/100 WBC (Bld) Lymphocytes/100 leukocytes in Blood by Automated count.[facility] Surgical HospitalMCH Auto (RBC) [Entitic mass]Ordered By: Marcos Martin on 03-10-2024 MCH (RBC) [Entitic mass]MCH [Entitic mass] by Automated count27.5-35.2FCommunity Regional Medical CenterMCHC Auto (RBC) [Mass/Vol]Ordered By: Marcos Martin on 07-69-4811PMOZ (RBC) [Mass/Vol]MCHC [Mass/volume] by Automated count32.5-35.6 [facility] HospitalMCV Auto (RBC) [Entitic vol]Ordered By: Marcos Martin on 70-14-8354EEF (RBC) [Entitic vol]MCV [Entitic volume] by Automated count83.5-101[facility] Surgical HospitalMonocyte distribution width [Entitic volume] in Blood by AutomatedOrdered By: Marcos Martin on 03-10-2024 Monocyte distribution width Auto (Bld) [Entitic vol]Monocyte distribution width [Entitic volume] in Blood by AutomatedHigh0.00-20.00[facility] HospitalComment on above:For adults in ED, MDW > 20.0 may be associated with a higher risk of sepsis during the first 12 hrs of hospital admissionMonocytes Auto (Bld) [#/Vol]Ordered By: Marcos Martin on 86-78-1206Hxtkardsh (Bld) [#/Vol] Automated blood monocyte count0.0-0.8[facility] Monocytes/100 WBC Auto (Bld)Ordered By: Marcos Martin on 55-68-7089Srrfpqnfw/100 WBC (Bld)Automated monocyte %.[facility] Surgical HospitalMucus [Presence] in Urine by AutomatedOrdered By: Marcos Martin on 19-60-2779Qvwwe Auto Ql (U)Mucus [Presence] in Urine by AutomatedOhio Valley Surgical HospitalNatriuretic peptide B [Mass/Vol]Ordered By: Marcos Martin on 02-30-4986Rfghsrobxij peptide B (Bld) [Mass/Vol]BNP ser/plasHigh5-100[facility] Neutrophils Auto (Bld) [#/Vol]Ordered By: Marcos Martin on 43-12-1762Zmgcohhyxmx (Bld) [#/Vol]Neutrophils [#/volume] in Blood by Automated count1.8-7.7FCommunity Regional Medical CenterNeutrophils/100 WBC Auto (Bld)Ordered By: Marcos Martin on 29-15-5023Mruugezjpar/100 WBC (Bld)Automated neutrophil %.[facility] Surgical HospitalNitrite Test strip Ql (U)Ordered By: Marcos Martin on 03-10-2024 Nitrite Ql (U)Nitrite [Presence] in Urine by Test stripNegativeOhio Valley Surgical HospitalNo Panel InformationOrdered By: Marcos Martin on 03-10-2024 Estimated GFR (CKD-EPI)19.558 mL/MinOhio Valley Surgical HospitalPharmacy Creatinine Clearance (Chem19.97[facility] HospitalNO GROWTH 5 DAYS [facility] HospitalNucleated erythrocytes [Presence] in Blood by Automated countOrdered By: Marcos Martin on 17-65-0776Pmjiaoucw RBC Auto Ql (Bld) Nucleated erythrocytes [Presence] in Blood by Automated count0-0.5FCommunity Regional Medical CenterPartial Thromboplastin Timeon 28-04-4419yLPT Coag (Bld) [Time]38.8 sHigh25.1-36.5The Unc Health Physician GroupComment on above:Result Comment: A hematocrit value greater than 55% may lead to inaccurate results in coagulation testing. Patients having hematocrit values >55% require a special collection tube for coagulation studies. Please contact the laboratory at [phone] for redraw instructions.PERFORMED BY:[place] [address] [address] [place], [place] [phone] MEDICAL DIRECTORJAJA CATES M.D.Performed By: #### CBC, CK, PT, BNP, PTT, HS TROP ####[facility] Platelet mean volume Auto (Bld) [Entitic vol]Ordered By: Marcos Martin on 23-55-0343Aachgimd mean volume (Bld) [Entitic vol]Platelet mean volume [Entitic volume] in Blood by Automated count6.6-10.1FCommunity Regional Medical Center Platelets Auto (Bld) [#/Vol]Ordered By: Marcos Martin on 24-63-4269Lyaesofne (Bld) [#/Vol]Platelets [#/volume] in Blood by Automated -867MvzwqtmukOhio Valley Surgical HospitalPotassium [Moles/volume] in Serum or PlasmaOrdered By: Marcos Martin on 14-07-7240Wbpoxvgvz [Moles/Vol]Potassium [Moles/volume] in Serum or Plasma3.5-5.1FCommunity Regional Medical CenterProtein Test strip (U) [Mass/Vol]Ordered By: Marcos Martin on 45-90-5003Qvqbbdd (U) [Mass/Vol]Protein [Mass/volume] in Urine by Test stripNegativeOhio Valley Surgical Hospital Protein [Mass/volume] in Serum or PlasmaOrdered By: Marcos Martin on 03-10-2024 Protein [Mass/Vol]Protein [Mass/volume] in Serum or PlasmaLow6.4-8.9[facility] HospitalProthrombin Time INRon 88-40-1037WWX Coag (PPP) [Relative time]2.7 {INR}NormalThe Unc Health Physician GroupComment on above:Result Comment: INR Therapeutic [...] CBC, CK, PT, BNP, PTT, HS TROP ####[facility] [place] [address] USAPT Coag (PPP) [Time] 30.4 sHigh9.0-12.9[facility] Physician GroupComment on above:Result Comment: A hematocrit value greater than 55% may lead to inaccurate results in coagulation testing. Patients having hematocrit values >55% require a special collection tube for coagulation studies. Please contact the laboratory at [phone] for redraw instructions.Performed By: #### CBC, CK, PT, BNP, PTT, HS TROP ####[facility] [address] [place] [address] USAProthrombin time (PT)Ordered By: Marcos Martin on 83-72-7541FG Coag (PPP) [Time]Prothrombin time (PT)High9.0-12.9[facility] Surgical HospitalComment on above:A hematocrit value greater than 55% may lead to inaccurate results in coagulation testing. Patientshaving hematocrit values >55% require a special collection tube for coagulation studies. Please contact the laboratory at [phone] for redraw instructions.RBC Auto (Bld) [#/Vol]Ordered By: Marcos Martin on 36-49-7319CGO (Bld) [#/Vol]Erythrocytes [#/volume] in Blood by Automated countLow3.90-5.60[facility] HospitalRespiratory (Upper) Panel, PCRon 36-86-6166Dwhhfuxjjbz (Upper) Panel, PCRNormHCA Florida [facility] Hospital Physician GroupComment on above:Performed By: #### BIOFIRECOVDET, RESP PANEL UPP. ####[facility] [address] [place] [address] [facility] Respiratory pathogens DNA and RNA panel - Nasopharynx by SMITHA with non-probe detectionOrdered By: Marcos Martin on 51-24-5565Ngotvwktvqd pathogens DNA and RNA panel SMITHA+non-probe (Nph)Respiratory pathogens DNA and RNA panel - Nasopharynx by SMITHA with non-probe detectionBlanchard Valley Health System Blanchard Valley Hospitalerum or plasma albumin/globulin mass ratioOrdered By: Marcos Martin on 86-00-2897Ksamnnp/Globulin [Mass ratio]Serum or plasma albumin/globulin mass ratioBlanchard Valley Health System Blanchard Valley Hospitalerum or plasma anion gap determinationOrdered By: Marcos Martin on 65-23-4834Xbvhz gap [Moles/Vol]Serum or plasma anion gap determination6.0-15.0 [facility] Blanchard Valley Hospitalerum or plasma non-glucuronidated bilirubin measurement (mass/volume)Ordered By: Marcos Martin on 64-17-9044Erydhxfve.indirect [Mass/Vol]Serum or plasma non-glucuronidated bilirubin measurement (mass/volume)[facility] Blanchard Valley Hospitalodium [Moles/volume] in Serum or PlasmaOrdered By: Marcos Martin on 85-42-1076Wjmtxe [Moles/Vol]Sodium [Moles/volume] in Serum or IarvjpHgo445-692OmlkerfmjOhio Valley Surgical Hospital Specific gravity Test strip (U) [Rel density]Ordered By: Marcos Martin on 34-37-9233Zdrnbjlg gravity (U) [Rel density]Specific gravity of Urine by Test strip1.001-1.030[facility] HospitalThyroid Stimulating Hormoneon 48-61-6981WIJ Qn11.48 m[IU]/LHigh0.45-5.33The [facility]c Health Physician GroupComment on above:Result Comment: PERFORMED BY:[place] [address] [address] [place], [place] [phone] MEDICAL DIRECTORJAJA CATES M.D.Performed By: #### CUBLD, LACTIC, HEPATIC, TSH3, BMP ####[address] [address] [facility] Thyrotropin [Units/volume] in Serum or PlasmaOrdered By: Mitchell Reyes on 89-09-2393QQJ QnThyrotropin [Units/volume] in Serum or PlasmaHigh0.45-5.33 [facility] HospitalTroponin I High Sensitivityon 03-10-2024 Troponin I High Lefdwlhyvir17.1 pg/mLNormal0.0-20.0[facility] Comment on above:Result Comment: PERFORMED BY:[address] ELDRIDGEDIETRICH, [place] [phone] MEDICAL DIRECTORJAJA CATES M.D.Performed By: #### CBC, CK, PT, BNP, PTT, HS TROP ####[facility] [address] [place] [address] [facility] Troponin I.cardiac [Mass/volume] in Serum or Plasma by Detection limit <= 0.01 ng/Ordered By: Marcos Martin on 96-72-2373Ylbcdnje I.cardiac DL <= 0.01 ng/mL [Mass/Vol]Troponin I.cardiac [Mass/volume] in Serum or Plasma by Detection limit <= 0.01 ng/0.0-20.0[facility] HospitalUrea nitrogen [Mass/volume] in Serum or PlasmaOrdered By: Marcos Martin on 30-79-9563Ifbi nitrogen [Mass/Vol] Urea nitrogen [Mass/volume] in Serum or PlasmaBluefield Regional Medical Center7-25[facility] Surgical HospitalUrine Cultureon 45-49-7219Eiuxzxlv identified Cx Nom (U)No Growth 2 Days PERFORMED BY: [place] [address] PATHOLOGIST EXPLOSIVE ORDNANCE TECHNICIAN JAJA CATES M.D.NormalThe Unc Health Physician GroupComment on above: Performed By: #### CUU ####[facility] [address] [place] [address] USAUrine cultureOrdered By: Mitchell Reyes on 29-70-0532Pvvrwlsg identified Cx Nom (U)Urine cultureOhio Valley Surgical HospitalBacteria identified Cx Nom (U)Urine cultureOhio Valley Surgical HospitalUrobilinogen Test strip (U) [Mass/Vol]Ordered By: Marcso Martin on 19-15-1251Gbhptejnjzjq (U) [Mass/Vol]Urobilinogen [Mass/volume] in Urine by Test stripNormalOhio Valley Surgical HospitalWBC Auto (Bld) [#/Vol]Ordered By: Marcos Martin on 36-39-4518NRC (Bld) [#/Vol]Leukocytes [#/volume] in Blood by Automated count4.1-10.5FCommunity Regional Medical CenterX-ray reportOrdered By: Shaquille Mahoney on 80-59-3962Yhhbh reportOHIOHEALTH NEL[facility]VIL[facility] [address] [place] [address] XRay Report Signed Patient: Tavo Wallis Jr MR# : [id number] : 1940 Acct:[id number] Age/Sex: 83 / M ADM Date: 5 Loc: ER Room: Type: [facility] ER Attending Dr: Copies to: Marcos Martin [...] Shaquille Mahoney M.D.03/10/2024 10:26 AM Dictation Location: [place] [address] Transcribed By: NOLVIA 03/10/24 1026 Dictated By: Shaquille Mahoney II, MD 03/10/24 1025 Signed By: 03/10/24 [facility]6 [facility] Work Phone: XR chest 1V portableon 25-72-8207YG chest 1V portable NormalThe Unc Health Physician GroupaPTT in Platelet poor plasma by Coagulation assayOrdered By: Marcos Martin on 31-95-5197yUSN Coag (PPP) [Time]Activated partial thromboplastin time (aPTT) in platelet poor plasma by coagulation [facility] 25.1-36.5FCommunity Regional Medical CenterComment on above:A hematocrit value greater than 55% may lead to inaccurate results in coagulation testing. Patients having hematocrit values >55% require a special collection tube for coagulation studies. Please contact the laboratory at [phone] for redraw instructions. pH Test strip (U)Ordered By: Marcos Martin on 12-82-7173oX (U)pH of Urine by Test strip5.0-9.0[facility] Surgical HospitalAlanine aminotransferase [Enzymatic activity/volume] in Serum or PlasmaOrdered By: Sandip Bunting on 84-58-9654YLY [Catalytic activity/Vol]Alanine aminotransferase [Enzymatic activity/volume] in Serum or Plasma7-52[facility] HospitalAlbumin [Mass/volume] in Serum or Plasma by Bromocresol green (BCG) dye binding methoOrdered By: Sandip Bunting on 43-01-1217Bfbrmdo BCG dye [Mass/Vol]Albumin [Mass/volume] in Serum or Plasma by Bromocresol green (BCG) dye binding methoLow3.5-5.7FCommunity Regional Medical CenterAlkaline phosphatase [Enzymatic activity/volume] in Serum or PlasmaOrdered By: Sandip Bunting on 47-65-4117FOO [Catalytic activity/Vol] Alkaline phosphatase [Enzymatic activity/volume] in Serum or NkmewuJual88-114 [facility] HospitalAspartate aminotransferase [Enzymatic activity/volume] in Serum or PlasmaOrdered By: Sandip Bunting on 09-34-6768BBV [Catalytic activity/Vol]Aspartate aminotransferase [Enzymatic activity/volume] in Serum or Rlghiq71-07JivmsberlOhio Valley Surgical HospitalBasophils Auto (Bld) [#/Vol]Ordered By: Sandip Bunting on 52-12-1625Ceuaafuqb (Bld) [#/Vol]Automated basophil count0.0-0.2FCommunity Regional Medical CenterBasophils/100 WBC Auto (Bld)Ordered By: Sandip Bunting on 87-28-1483Cvrrmmrve/100 WBC (Bld)Automated basophil %.[facility] HospitalBilirubin.total [Mass/volume] in Serum or PlasmaOrdered By: Sandip Bunting on 20-02-2001Qvbfxwfoe [Mass/Vol] Bilirubin.total [Mass/volume] in Serum or Plasma0.3-1.0[facility] HospitalCalcium [Mass/volume] in Serum or PlasmaOrdered By: Sandip Bunting on 57-66-0876Crjjhmo [Mass/Vol]Calcium [Mass/volume] in Serum or PlasmaLow 8.6-10.3FCommunity Regional Medical CenterCarbon dioxide, total [Moles/volume] in Serum or PlasmaOrdered By: Sandip Bunting on 76-25-4771ID8 [Moles/Vol]Carbon dioxide, total [Moles/volume] in Serum or Ffgxrm15.0-31.0[facility] HospitalChloride [Moles/volume] in Serum or PlasmaOrdered By: Sandip Bunting on 33-38-4717Vtusihqv [Moles/Vol]Chloride [Moles/volume] in Serum or Ygmxer20-837FdvnhwiqcOhio Valley Surgical HospitalComplete Blood Count Auto Diffon 81-03-4637Oupkfuylk (Bld) [#/Vol]0.0 10*3/uLNormal0.0-0.2The Unc Health Physician GroupComment on above:Result Comment: PERFORMED BY:[address] [place], [place] [phone] MEDICAL DIRECTORJAJA CATES M.D.Performed By: #### CMP, CBC ####[address] [address] USABasophils/100 WBC (Bld)0.5 %Normal.The Unc Health Physician GroupComment on above:Performed By: #### CMP, CBC ####[address] [address] USAEosinophils (Bld) [#/Vol]0.4 10*3/uLNormal0.0-0.45The Unc Health Physician GroupComment on above:Performed By: #### CMP, CBC ####[address] [address] USAEosinophils/100 WBC (Bld)4.6 %Normal.The Unc Health Physician GroupComment on above:Performed By: #### CMP, CBC ####[address] [address] USAErythrocyte distribution width (RBC) [Ratio]15.4 %High12.0-14.8The Unc Health Physician GroupComment on above:Performed By: #### CMP, CBC ####[place] [id number] [facility] Hematocrit (Bld) [Volume fraction]28.8 %Low38.8-50.0The Unc Health Physician GroupComment on above:Performed By: #### CMP, CBC ####[place] [address] USAHemoglobin (Bld) [Mass/Vol]9.7 g/dLLow 13.0-17.0The Unc Health Physician GroupComment on above:Performed By: #### CMP, CBC ####[place] [address] [place] Lymphocytes (Bld) [#/Vol]0.5 10*3/uLLow1.00-4.8The [facility] Comment on above:Performed By: #### CMP, CBC ####[place] [address] USALymphocytes/100 WBC (Bld)6.1 %Normal. The Unc Health Physician GroupComment on above:Performed By: #### CMP, CBC ####[place] [address] USAMCH (RBC) [Entitic mass]34.4 gnRjpzjz26.5-35.2The Unc Health Physician GroupComment on above:Performed By: #### CMP, CBC ####[place] [address] USAMCV (RBC) [Entitic vol]102.5 aBJshh98.5-101The Unc Health Physician GroupComment on above:Performed By: #### CMP, CBC ####[place] [address] USAMean Corpuscular HGB Conc33.6 g/sOKcxcgh92.5-35.6The Unc Health Physician GroupComment on above:Performed By: #### CMP, CBC ####[place] [address] USAMonocytes (Bld) [#/Vol]0.6 10*3/uLNormal 0.0-0.8The Unc Health Physician GroupComment on above:Performed By: #### CMP, CBC ####[address] [address] [place] Monocytes/100 WBC (Bld)7.3 %Normal.The Unc Health Physician GroupComment on above:Performed By: #### CMP, CBC ####[address] [address] USANeutrophils (Bld) [#/Vol]6.2 10*3/uLNormal1.8-7.7The Unc Health Physician GroupComment on above:Performed By: #### CMP, CBC ####[address] [address] [place] Neutrophils/100 WBC (Bld)81.5 %Normal.The Unc Health Physician GroupComment on above:Performed By: #### CMP, CBC ####[place] [id number] USANRBC%0.1 /100{WBC}Normal0-0.5The Unc Health Physician GroupComment on above:Performed By: #### CMP, CBC ####[address] [address] USAPlatelet mean volume (Bld) [Entitic vol]8.2 fLNormal6.6-10.1The Unc Health Physician GroupComment on above: Performed By: #### CMP, CBC ####[address] [address] USAPlatelets (Bld) [#/Vol]265 10*3/hJArbxhx348-780Elo Unc Health Physician GroupComment on above:Performed By: #### CMP, CBC ####[address] [address] USARBC (Bld) [#/Vol]2.81 10*6/uLLow3.90-5.60The Unc Health Physician GroupComment on above:Performed By: #### CMP, CBC ####[address] [address] USAWBC (Bld) [#/Vol]7.6 10*3/uLNormal4.1-10.5The Unc Health Physician GroupComment on above:Performed By: #### CMP, CBC ####[address] [address] [facility] Comprehensive Metabolic Panelon 49-79-0100Vhtiwvy [Mass/Vol]2.8 g/dLLow3.5-5.7 The Unc Health Physician GroupComment on above:Performed By: #### CMP, CBC ####[place] [phone] [facility] Albumin/Globulin [Mass ratio]1.2 {ratio}NormalThe Unc Health Physician Group Comment on above:Performed By: #### CMP, CBC ####[place] [phone] USAALP [Catalytic activity/Vol]106 U/L Wlat39-999Dkx Unc Health Physician GroupComment on above:Result Comment: PERFORMED BY:[address] [place], [place] [phone] MEDICAL DIRECTORJAJA CATES M.D. Performed By: #### CMP, CBC ####[address] [address] USAALT [Catalytic activity/Vol]13 U/LNormal7-52The Unc Health Physician GroupComment on above:Performed By: #### CMP, CBC ####[address] [address] USAAnion gap [Moles/Vol]9.7 mmol/LNormal6.0-15.0The Unc Health Physician GroupComment on above:Performed By: #### CMP, CBC ####[address] [address] USAAST [Catalytic activity/Vol]22 U/DRuhnao17-55Ayi Unc Health Physician GroupComment on above:Performed By: #### CMP, CBC ####[address] [address] [place] Bilirubin [Mass/Vol]0.7 mg/dLNormal0.3-1.0The Unc Health Physician GroupComment on above:Performed By: #### CMP, CBC ####[address] [address] USACalcium [Mass/Vol]8.2 mg/dLLow8.6-10.3The Unc Health Physician GroupComment on above:Performed By: #### CMP, CBC ####[address] [address] [place] Chloride [Moles/Vol]98 mmol/YWgtxxh23-548Hpz Unc Health Physician GroupComment on above:Performed By: #### CMP, CBC ####[address] [address] USACO2 [Moles/Vol]27.9 mmol/IPihprj18.0-31.0The Unc Health Physician GroupComment on above:Performed By: #### CMP, CBC ####[address] [address] [place] Creatinine [Mass/Vol]1.58 mg/dLHigh0.70-1.30The Unc Health Physician GroupComment on above:Performed By: #### CMP, CBC ####[address] [address] USAEstimated GFR43.402 mL/MinNoCritical access hospital Physician [facility] General HospitalComment on above:Performed By: #### CMP, CBC ####[address] [address] USAGlobulin (S) [Mass/Vol]2.3 g/dLNoCritical access hospital Physician GroupComment on above:Performed By: #### CMP, CBC ####[address] [address] USAGlucose [Mass/Vol]111 mg/kVWzzt66-225Cmu [facility] Comment on above:Result Comment: Random Glucose Reference Range is dependent on time and content of last meal. Glucose of more than 200 mg/dL in a nonstressed, ambulatory subject supports the diagnosis of Diabetes Mellitus. ADA recommended reference rangePerformed By: #### CMP, CBC ####[address] [address] USAPotassium [Moles/Vol]3.6 mmol/LNormal 3.5-5.1The Unc Health Physician GroupComment on above:Performed By: #### CMP, CBC ####[facility] [address] [place] [address] [place] Protein [Mass/Vol]5.1 g/dLLow6.4-8.9The Unc Health Physician GroupComment on above:Performed By: #### CMP, CBC ####[facility] [address] [place] [address] USASodium [Moles/Vol]132 mmol/TEyv593-634Yzb Unc Health Physician GroupComment on above:Performed By: #### CMP, CBC ####[facility] [address] [place] [address] USAUrea nitrogen [Mass/Vol]24 mg/dLNormal7-25The Unc Health Physician GroupComment on above: Performed By: #### CMP, CBC ####[place] [address] [place] [address] USACreatinine [Mass/volume] in Serum or PlasmaOrdered By: Sandip Bunting on 98-46-7591Rmuljstrby [Mass/Vol]Creatinine [Mass/volume] in Serum or PlasmaHigh0.70-1.30[facility] HospitalEosinophils Auto (Bld) [#/Vol]Ordered By: Sandip Bunting on 02-72-0861Jwwpglulzpe (Bld) [#/Vol] Automated eosinophil count0.0-0.45[facility] Eosinophils/100 WBC Auto (Bld)Ordered By: Sandip Bunting on 03-02-2024 Eosinophils/100 WBC (Bld)Automated eosinophil %.[facility] HospitalErythrocyte distribution width Auto (RBC) [Ratio]Ordered By: Sandip Bunting on 18-02-7464Zvkqyrxxjqu distribution width (RBC) [Ratio]Erythrocyte distribution width [Ratio] by Automated qjxqwAqfo34.0-14.8[facility] HospitalGlobulin Calc (S) [Mass/Vol]Ordered By: Sandip Bunting on 28-34-9359Crugkqdh (S) [Mass/Vol]Serum globulin measurement by calculation (mass/volume)[facility] HospitalGlucose [Mass/volume] in Serum or PlasmaOrdered By: Sandip Bunting on 04-27-2922Wiemfiu [Mass/Vol]Glucose [Mass/volume] in Serum or QwfbomMsaf08-273RhpfysveqOhio Valley Surgical Hospital Comment on above:ADA recommended reference rangeRandom Glucose Reference Range is dependent on time and content of last meal. Glucose of more than 200 mg/dL in a nonstressed, ambulatory subject supports the diagnosisof Diabetes Mellitus. Hematocrit Auto (Bld) [Volume fraction]Ordered By: Sandip Aguirre on 03-02-2024 Hematocrit (Bld) [Volume fraction]Hematocrit [Volume Fraction] of Blood by Automated xwgalLpa36.8-50.0[facility] HospitalHemoglobin [Mass/volume] in BloodOrdered By: Sandip Bunting on 33-35-8622Fmckcsqqju (Bld) [Mass/Vol]Hemoglobin [Mass/volume] in QbxwrSzm74.0-17.0[facility] HospitalLeukocytes [#/volume] corrected for nucleated erythrocytes in Blood by Automated counOrdered By: Sandip Bunting on 02-19-6514YIQ corrected for nucl RBC Auto (Bld) [#/Vol]Leukocytes [#/volume] corrected for nucleated erythrocytes in Blood by Automated coun4.1-10.5FCommunity Regional Medical Center Lymphocytes Auto (Bld) [#/Vol]Ordered By: Sandip Bunting on 03-02-2024 Lymphocytes (Bld) [#/Vol]Lymphocytes [#/volume] in Blood by Automated countLow 1.00-4.8[facility] HospitalLymphocytes/100 WBC Auto (Bld)Ordered By: Sandip Bunting on 81-01-1132Cmnjepwxrcq/100 WBC (Bld)Lymphocytes/100 leukocytes in Blood by Automated count.[facility] HospitalMCH Auto (RBC) [Entitic mass]Ordered By: Sandip Bunsantiago on 29-35-1245RMX (RBC) [Entitic mass]MCH [Entitic mass] by Automated count27.5-35.2FCommunity Regional Medical CenterMCHC Auto (RBC) [Mass/Vol]Ordered By: Sandip Aguirre on 69-27-8486OWUB (RBC) [Mass/Vol]MCHC [Mass/volume] by Automated count32.5-35.6FCommunity Regional Medical CenterMCV Auto (RBC) [Entitic vol]Ordered By: Sandip Bunting on 42-70-0443YIR (RBC) [Entitic vol]MCV [Entitic volume] by Automated countHigh 83.5-101[facility] HospitalMonocytes Auto (Bld) [#/Vol]Ordered By: Sandip Bunting on 61-65-1866Egqjcfkfs (Bld) [#/Vol]Automated blood monocyte count0.0-0.8[facility] HospitalMonocytes/100 WBC Auto (Bld)Ordered By: Sandip Bunting on 38-17-4535Rgtwjgdri/100 WBC (Bld)Automated monocyte %. [facility] HospitalNeutrophils Auto (Bld) [#/Vol]Ordered By: Sandip Bunting on 71-48-2991Ypvmlzqfmao (Bld) [#/Vol]Neutrophils [#/volume] in Blood by Automated count1.8-7.7FCommunity Regional Medical CenterNeutrophils/100 WBC Auto (Bld)Ordered By: Sandip Bunting on 88-12-9634Wmaziukuoar/100 WBC (Bld) Automated neutrophil %.[facility] HospitalNo Panel Information Ordered By: Sandip Bunting on 65-97-4360Nxyzhsidy GFR (CKD-EPI)43.402 mL/Min [facility] HospitalPharmacy Creatinine Clearance (ChemN/AFCommunity Regional Medical CenterNucleated erythrocytes [Presence] in Blood by Automated countOrdered By: Sandip Bunting on 74-68-2977Vevskcnse RBC Auto Ql (Bld) Nucleated erythrocytes [Presence] in Blood by Automated count0-0.5FCommunity Regional Medical CenterPlatelet mean volume Auto (Bld) [Entitic vol]Ordered By: Sandip Bunting on 76-26-8606Tvfapmzb mean volume (Bld) [Entitic vol]Platelet mean volume [Entitic volume] in Blood by Automated count6.6-10.1FCommunity Regional Medical CenterPlatelets Auto (Bld) [#/Vol]Ordered By: Sandip Bunting on 77-60-9782Ypuklhryd (Bld) [#/Vol]Platelets [#/volume] in Blood by Automated zptba345-973WhkznioczOhio Valley Surgical HospitalPotassium [Moles/volume] in Serum or PlasmaOrdered By: Sandip Bunting on 62-36-3717Chexqyziz [Moles/Vol]Potassium [Moles/volume] in Serum or Plasma3.5-5.1FCommunity Regional Medical CenterProtein [Mass/volume] in Serum or PlasmaOrdered By: Sandip Bunting on 35-86-6263Ishmnlb [Mass/Vol]Protein [Mass/volume] in Serum or PlasmaLow6.4-8.9[facility] HospitalRBC Auto (Bld) [#/Vol]Ordered By: Sandip Bunting on 36-17-3527VIL (Bld) [#/Vol]Erythrocytes [#/volume] in Blood by Automated countLow3.90-5.60 [facility] Blanchard Valley Hospitalerum or plasma albumin/globulin mass ratio Ordered By: Sandip Bunting on 99-92-9680Grdwavo/Globulin [Mass ratio]Serum or plasma albumin/globulin mass ratioBlanchard Valley Health System Blanchard Valley Hospitalerum or plasma anion gap determinationOrdered By: Sandip Bunting on 67-27-8722Xacmr gap [Moles/Vol]Serum or plasma anion gap determination6.0-15.0[facility] Blanchard Valley Hospitalodium [Moles/volume] in Serum or PlasmaOrdered By: Sandip Bunting on 22-68-0051Nlcrtu [Moles/Vol]Sodium [Moles/volume] in Serum or PlasmaLow 136-145Ohio [facility] Surgical HospitalUrea nitrogen [Mass/volume] in Serum or PlasmaOrdered By: Sandip Bunting on 63-43-8122Bktl nitrogen [Mass/Vol]Urea nitrogen [Mass/volume] in Serum or Plasma7-25[facility] WBC Auto (Bld) [#/Vol]Ordered By: Sandip Bunting on 50-04-6872NBL (Bld) [#/Vol] Leukocytes [#/volume] in Blood by Automated count4.1-10.5FCommunity Regional Medical CenterANION GAPon 79-87-2230Vhfsk gap [Moles/Vol]12.0 mmol/LNormal 8.0-16.0[facility] – HarlingenComment on above:Result Comment: ANION GAP = Sodium -(Chloride + CO2)Performed By: #### ANION, CBCND, EGFR1, BMP #### [facility] [address] [place] [address]Dsprw Gapon 15-79-8016Wwheg gap [Moles/Vol]12.0 mmol/L8.0 - 16.0 meq/LBon Flower HospitalComment on above:ANION GAP = Sodium -(Chloride + CO2) Performed at [facility] [address] [place] [address] BASIC METABOL PANELon 57-14-3927Ppluwdx [Mass/Vol]8.5 mg/dLNormal8.5-10.5SMatagorda Regional Medical CenterComment on above:Performed By: #### ANION, CBCND, EGFR1, BMP #### [facility] [address] [address]Bgykbqmo [Moles/Vol]96 mmol/AVnp47-760HvsqnValley Baptist Medical Center – Harlingen Comment on above:Performed By: #### ANION, CBCND, EGFR1, BMP #### [facility] [address] [place] [address]FK0 [Moles/Vol]23 mmol/YBkbwvf97-54AyyzoValley Baptist Medical Center – Harlingen Comment on above:Performed By: #### ANION, CBCND, EGFR1, BMP #### [facility] [address] [address]Wpbtxoohru [Mass/Vol]1.5 mg/dLHigh0.4-1.2SMatagorda Regional Medical CenterComment on above:Performed By: #### ANION, CBCND, EGFR1, BMP #### [facility] [address] [place] [address]Kbtobmq [Mass/Vol]100 mg/cITiqzeo85-243XrabrValley Baptist Medical Center – Harlingen Comment on above:Performed By: #### ANION, CBCND, EGFR1, BMP #### [facility] [address] [place] [address]Ruznlfwnb [Moles/Vol]3.7 mmol/LNormal3.5-5.2SMatagorda Regional Medical CenterComment on above:Performed By: #### ANION, CBCND, EGFR1, BMP #### [facility] [address] [place], [place] [address]Wtesmu [Moles/Vol]131 mmol/KHqa971-383ZfjpyValley Baptist Medical Center – Harlingen Comment on above:Performed By: #### ANION, CBCND, EGFR1, BMP #### [facility] [address] [place], [place] [address]Hiym nitrogen [Mass/Vol]30 mg/dLHigh7-22[facility] Center – HarlingenComment on above:Performed By: #### ANION, CBCND, EGFR1, BMP #### [facility] [address] [place], [place] [address]Akifi metabolic 2000 panelon 17-41-9851Gtyncac [Mass/Vol]8.5 mg/dL 8.5 - 10.5 mg/dLBon Secours Regional Medical Centery Magruder HospitalComment on above:Performed at [facility] [address] [place], [place] [address]Thfuqwnq [Moles/Vol]96 mmol/LLow98 - 111 meq/LBon Secours Mercy HealthCO2 [Moles/Vol]23 mmol/L23 - 33 meq/LBon Secours Mercy HealthCreatinine [Mass/Vol]1.5 mg/dLHigh0.4 - 1.2 mg/dLBon Secours Mercy HealthGlucose [Mass/Vol]100 mg/dL70 - 108 mg/dLBon Secours Mercy Health Potassium [Moles/Vol]3.7 mmol/L3.5 - 5.2 meq/LBon Secours Mercy HealthSodium [Moles/Vol]131 mmol/SJnr927 - 145 meq/LBon Secours Mercy HealthUrea nitrogen [Mass/Vol]30 mg/dLHigh7 - 22 mg/dLBon Secours Mercy HealthCBCon 02-27-2024 Erythrocyte distribution width (RBC) [Entitic vol]52.1 jJArco06.0 - 45.0 fLBon Secours Mercy HealthErythrocyte distribution width (RBC) [Ratio]13.9 %11.5 - 14.5 %[facility] Mercy HealthHematocrit (Bld) [Volume fraction]27.6 %Low42.0 - 52.0 %[facility] HealthHemoglobin (Bld) [Mass/Vol]9.2 g/dLLowBon Secours Mercy HealthInterpretation and review of laboratory resultsAbnormalBon Upper Valley Medical CenterH (RBC) [Entitic mass]34.2 hiOrex82.0 - 33.0 pgInova Health SystemHC (RBC) [Mass/Vol]33.3 g/dLBon Upper Valley Medical CenterV (RBC) [Entitic vol]102.6 oFAngz38.0 - 94.0 fLSentara Martha Jefferson HospitalPlatelet mean volume (Bld) [Entitic vol]10.2 fL9.4 - 12.4 fLSentara Martha Jefferson HospitalComment on above: Performed at [address] [address]Mbjuqvbev (Bld) [#/Vol]282 10*3/uLSentara Martha Jefferson HospitalRBC (Bld) [#/Vol]2.69 10*6/uLLow Sentara [facility] Jefferson HospitalWBC (Bld) [#/Vol]13.6 10*3/uLHighBon Spearfish Regional HospitalCBC NO DIFFERENTIALon 69-73-7457Tlmdryfuobc distribution width (RBC) [Ratio]13.9 %Wpliln04.5-14.5SMatagorda Regional Medical Center Comment on above:Performed By: #### ANION, CBCND, EGFR1, BMP #### [address] [address]Yecygknqze (Bld) [Volume fraction]27.6 %Low42.0-52.0[facility] – HarlingenComment on above:Performed By: #### ANION, CBCND, EGFR1, BMP #### [address] [address]Vmwvjtilir (Bld) [Mass/Vol]9.2 g/dLLow14.0-18.0[facility] – HarlingenComment on above:Performed By: #### ANION, CBCND, EGFR1, BMP #### [facility] [address] [place] [address]DYJ (RBC) [Entitic mass]34.2 csZemz54.0-33.0[facility] – HarlingenComment on above:Performed By: #### ANION, CBCND, EGFR1, BMP #### [facility] [address] [place] [address]UXJX (RBC) [Mass/Vol]33.3 g/jFXjifvd81.2-35.5SMatagorda Regional Medical CenterComment on above:Performed By: #### ANION, CBCND, EGFR1, BMP #### [facility] [address] [place] [address]ONI (RBC) [Entitic vol]102.6 oZKbhd78.0-94.0[facility] – HarlingenComment on above:Performed By: #### ANION, CBCND, EGFR1, BMP #### [facility] [address] [place] [address]CXTEEXEV725 thou/zq7Lcnbva602-999PtlnwValley Baptist Medical Center – Harlingen Comment on above:Performed By: #### ANION, CBCND, EGFR1, BMP #### [facility] [address] [place] [address]Eqhdcpmt mean volume (Bld) [Entitic vol]10.2 fLNormal9.4-12.4SMatagorda Regional Medical CenterComment on above:Performed By: #### ANION, CBCND, EGFR1, BMP #### [facility] [address] [address]RBX9.69 mill/tz7Qpd6.70-6.10[facility] – HarlingenComment on above:Performed By: #### ANION, CBCND, EGFR1, BMP #### [facility] [address] [place] [address]OCV-DS92.1 mULlti59.0-45.0[facility] – HarlingenComment on above:Performed By: #### ANION, CBCND, EGFR1, BMP #### [facility] [address] [place] [address]JWG26.6 thou/yr7Hzvx0.8-10.8[facility] – HarlingenComment on above:Performed By: #### ANION, CBCND, EGFR1, BMP #### [facility] [address] [place] [address]FTE Rhythm Stripon 19-01-0170KYQAKGQEroCarilion Roanoke Community HospitalBon Flower HospitalGFR, ESTIMATEDon 30-21-8301PJN/1.73 sq M.predicted MDRD (S/P/Bld) [Vol rate/Area]46 mL/min/{1.73_m2}Abnormal>60Bon Flower HospitalComment on above:Pediatric calculator link https://www.kidney.org/professionals/kdoqi/gfr_calculatorped Effective [...] that affects renal tubular secretion. Performed at [facility] [employer] [address] [address] Result Comment: Pediatric calculator link https://www.kidney.org/professionals/kdoqi/gfr_calculatorped Effective [...] By: #### ANION, CBCND, EGFR1, BMP #### [email or web address] [address] [place] [address]Lt Panel Informationon 05-90-0654Klbrarxffovnfj and review of laboratory resultsAbnormalSentara Halifax Regional HospitalANION GAPon 81-56-2812Mbtkg gap [Moles/Vol]13.0 mmol/LNormal8.0-16.0[facility] – HarlingenComment on above:Result Comment: ANION GAP = Sodium -(Chloride + CO2)Performed By: #### NTBNP, TSH3, HH #### [email or web address] [address] [place], [place] [address]Ppbjy Gapon 99-96-6142Roqir gap [Moles/Vol]13.0 mmol/L8.0 - 16.0 meq/LBon Flower HospitalComment on above:ANION GAP = Sodium -(Chloride + CO2) Performed at [facility] [address] [place] [address] BASIC METABOL PANELon 85-08-5584Tszcoum [Mass/Vol]8.9 mg/dLNormal8.5-10.5SMatagorda Regional Medical CenterComment on above:Performed By: #### REINA CORRALES, #### [facility] [address] [place] [address]Tscdocql [Moles/Vol]97 mmol/JFnf51-901ToqirValley Baptist Medical Center – Harlingen Comment on above:Performed By: #### REINA CORRALES, #### [facility] [address] [place] [address]VK3 [Moles/Vol]24 mmol/YKjekpq04-83LhudtValley Baptist Medical Center – Harlingen Comment on above:Performed By: #### REINA CORRALES, #### [facility] [address] [place] [address]Dpfqpryqmh [Mass/Vol]1.2 mg/dLNormal0.4-1.2SMatagorda Regional Medical CenterComment on above:Performed By: #### REINA CORRALES, #### [facility] [address] [place] [address] 87744Etazggz [Mass/Vol]109 mg/kWTshw46-685InkytValley Baptist Medical Center – Harlingen Comment on above:Performed By: #### REINA CORRALES, #### [facility] [address] [place] [address] 97397Tjlcxamzq [Moles/Vol]3.5 mmol/LNormal3.5-5.2SMatagorda Regional Medical CenterComment on above:Performed By: #### REINA CORRALES, HH #### [facility] [address] [place] [address] 43074Wgljgi [Moles/Vol]134 mmol/DZrl054-553WktaaValley Baptist Medical Center – Harlingen Comment on above:Performed By: #### REINA CORRALES, HH #### [facility] [address], [place] [address]Udya nitrogen [Mass/Vol]21 mg/dLNormal7-22SaCHRISTUS Mother Frances Hospital – Sulphur SpringsComment on above:Performed By: #### NTBNP, TSH3, #### [facility] [address], [place] [address]Npbtk metabolic 2000 panelon 07-79-1843Viuprle [Mass/Vol]8.9 mg/dL 8.5 - 10.5 mg/dLBon Flower HospitalComment on above:Performed at [facility] [address] [place], [place] [address]Twxrszgl [Moles/Vol]97 mmol/LLow98 - 111 meq/LBon SecBeauregard [facility] Hospital HealthCO2 [Moles/Vol]24 mmol/L23 - 33 meq/LBon Flower HospitalCreatinine [Mass/Vol]1.2 mg/dL0.4 - 1.2 mg/dLBon Flower HospitalGlucose [Mass/Vol]109 mg/eKCuxq45 - 108 mg/dLBon Flower HospitalInterpretation and review of laboratory resultsAbnormalBon Flower HospitalPotassium [Moles/Vol]3.5 mmol/L3.5 - 5.2 meq/LBon [facility] Sodium [Moles/Vol]134 mmol/FUcg043 - 145 meq/LBon Flower HospitalUrea nitrogen [Mass/Vol]21 mg/dL7 - 22 mg/dLBon Flower HospitalGFR, ESTIMATEDon 90-30-9231CIU/1.73 sq M.predicted MDRD (S/P/Bld) [Vol rate/Area]60 mL/min/{1.73_m2}Normal>60Bon Flower HospitalComment on above:Pediatric calculator link https://www.kidney.org/professionals/kdoqi/gfr_calculatorped Effective [...] that affects renal tubular secretion. [place] [address] Result Comment: Pediatric calculator link https://www.kidney.org/professionals/kdoqi/gfr_calculatorped Effective [...] tubular secretion.Performed By: #### REINA CORRALES, #### [address] [address]AMK,HCTon 42-20-9119Hrhfkhnsvu (Bld) [Volume fraction]27.7 %Low 42.0-52.0Sentara Martha Jefferson HospitalComment on above:Performed at [address] [address]Zsjjvvnbl By: #### REINA CORRALES, #### [address] [address]Egmjylcflb (Bld) [Mass/Vol]9.3 g/dLLow14.0-18.0[facility] on above:Performed By: #### REINA CORRALES, #### [address] [address]Nbuigqrjlf and Hematocrit panel (Bld)on 85-00-7551Xifrkyedeojdxn and review of laboratory resultsAbnormalBon [facility] Regional HospitalNo Panel Informationon 84-46-0864Toq Flower HospitalANION GAPon 91-74-7406Ilwiy gap [Moles/Vol]11.0 mmol/LNormal8.0-16.0[facility] – HarlingenComment on above:Result Comment: ANION GAP = Sodium -(Chloride + CO2) Performed By: #### POCGL #### [address] [address]Mgozr Gapon 22-09-7768Tysvm gap [Moles/Vol]11.0 mmol/L8.0 - 16.0 meq/LBon Flower HospitalComment on above:ANION GAP = Sodium -(Chloride + CO2) Performed at [facility] [address] [place] [address] BASIC METABOL PANELon 53-14-1258Uhqhbui [Mass/Vol]8.5 mg/dLNormal8.5-10.5SMatagorda Regional Medical CenterComment on above:Performed By: #### POCGL #### [address] [address]Dqmqzjmk [Moles/Vol]97 mmol/AFmq28-395NwajvValley Baptist Medical Center – Harlingen Comment on above:Performed By: #### POCGL #### [address] [address]CA2 [Moles/Vol]26 mmol/SQsszvv74-50UetpzValley Baptist Medical Center – Harlingen Comment on above:Performed By: #### POCGL #### [address] [address]Aaiamnpyxa [Mass/Vol]1.1 mg/dLNormal0.4-1.2SMatagorda Regional Medical CenterComment on above:Performed By: #### POCGL #### [address] [address]Jcfsait [Mass/Vol]100 mg/mSQxffmt58-142LpnsbValley Baptist Medical Center – Harlingen Comment on above:Performed By: #### POCGL #### [address] [address]Hczwxfodz [Moles/Vol]2.9 mmol/LLow3.5-5.2SMatagorda Regional Medical CenterComment on above:Performed By: #### POCGL #### [facility] [address] [place] [address] 74503Tzhlxq [Moles/Vol]134 mmol/IXvd056-114RjbkeValley Baptist Medical Center – [place] Comment on above:Performed By: #### POCGL #### [facility] [address] [place] [address] 61651Uviy nitrogen [Mass/Vol]17 mg/dLNormal7-22Val[facility] – HarlingenComment on above:Performed By: #### POCGL #### [address] [address]CLOLO CULTUREon 76-26-9014Emxmipkq identified Cx Nom (Bld) MICROBIOLOGY REPORT [facility], [address] [place] [address], [facility] PATIENT: TAVO WALLIS LOCATION: [facility] : 1940 AGE: 83 SEX: M ADM: 02/21/24 Att. Physician: RANDI BURRIS Order Id: [id number] Req. Physician: RANDA KING Source: lofqf-Ebllf-xyfdegrxsg <5.5oz./set volume Site: Peripheral Vein Collected: 02/25/24 07:19 Current Antibiotics: not stated Antibiotics comment: C O M M E N T S Source:->Blood STATUS OF ORDERED AND REPORTED TESTS BLOOD CULTURE FINAL 03/01/24 BLOOD CULTURE FINAL 03/01/24 08:06 02/26/24 No growth 24 hours. 02/27/24 No growth 48 hours. 03/01/24 No growth at 5 daysNormalSMatagorda Regional Medical CenterBacteria identified Cx Nom (Bld)MICROBIOLOGY REPORT [facility], [address] [place] [address], [facility] PATIENT: TAVO WALLIS LOCATION: [facility] : 1940 AGE: 83 SEX: M ADM: 02/21/24 Att. Physician: RANDI BURRIS Order Id: [id number] Req. Physician: ORIANA, OLUREMI Source: lufpb-Hbcrr-uaxoglknmt <5.5oz./set volume Site: Peripheral Vein Collected: 02/25/24 07:19 Current Antibiotics: not stated Antibiotics comment: STATUS OF ORDERED AND REPORTED TESTS BLOOD CULTURE FINAL 03/01/24 BLOOD CULTURE FINAL 03/01/24 08:06 02/26/24 No growth 24 hours. 02/27/24 No growth 48 hours. 03/01/24 No growth at 5 daysNoDeTar Healthcare SystemBadeaconess health system metabolic 2000 panelon 46-08-7614Krdpzap [Mass/Vol]8.5 mg/dL8.5 - 10.5 mg/dLBon SecRegency Hospital Cleveland WestComment on above:Performed at [facility] [address] [place] [address] 20931Sdygbhpm [Moles/Vol]97 mmol/LLow98 - 111 meq/LBon SecAstria Toppenish Hospitaly HealthCO2 [Moles/Vol]26 mmol/L23 - 33 meq/LBon SecBeauregard Memorial Hospital HealthCreatinine [Mass/Vol]1.1 mg/dL0.4 - 1.2 mg/dLBon [facility] HealthGlucose [Mass/Vol]100 mg/dL70 - 108 mg/dLBon [facility] HealthInterpretation and review of laboratory resultsAbnormalBon Secours Regional Medical Centery HealthPotassium [Moles/Vol]2.9 mmol/LLow3.5 - 5.2 meq/LBon SecBeauregard Memorial Hospital HealthSodium [Moles/Vol]134 mmol/LLow 135 - 145 meq/LBon SecBeauregard Memorial Hospital HealthUrea nitrogen [Mass/Vol]17 mg/dL7 - 22 mg/dLBon SecBeauregard Memorial Hospital HealthCBCon 62-38-5298Afjndjsxpek distribution width (RBC) [Entitic vol]57.1 lHWerk18.0 - 45.0 fLBon [facility] Hospital Interpretation and review of laboratory resultsAbnormalBon SecBeauregard Memorial Hospital Health Platelets (Bld) [#/Vol]180 10*3/uLBon Secours Regional Medical Centery HealthRBC (Bld) [#/Vol]2.49 10*6/uLLowBon Secours Regional Medical Centery HealthWBC (Bld) [#/Vol]11.7 10*3/uLHighBon [facility] HealthBon [facility]cy HealthCBC NO DIFFERENTIALon 17-41-3252Yzyzozvbipe distribution width (RBC) [Ratio]14.3 %Ypjrre50.5-14.5Bon [facility] Comment on above:Performed By: #### REINA CORRALES, #### [facility] [address] [place] [address] 00166Hwmoyarcuz (Bld) [Volume fraction]27.1 %Low42.0-52.0[facility] on above:Performed By: #### REINA CORRALES, HH #### [facility] [address] [place] [address] 36038Xcarbrfpth (Bld) [Mass/Vol]8.8 g/dLLow14.0-18.0Bon [facility] on above:Performed By: #### REINA CORRALES, HH #### [facility] [address] [place] [address] 94242YZA (RBC) [Entitic mass]35.3 byGjjk47.0-33.0Bon Flower HospitalComment on above:Performed By: #### REINA CORRALES, #### [facility] [address] [place] [address] 29000PRTN (RBC) [Mass/Vol]32.5 g/dJCpiemq05.2-35.5Bon [facility] on above:Performed By: #### REINA CORRALES, #### [facility] [address] [place] [address] 39311POG (RBC) [Entitic vol]108.8 mEQsyd45.0-94.0Bon [facility] on above:Performed By: #### REINA CORRALES, #### [facility] [address] [place] [address] 09889BNKXIVKC512 thou/rj8Qjncyz698-543IaaziValley Baptist Medical Center – [facility]lingen Comment on above:Performed By: #### REINA CORRALES, #### [facility] [address] [place] [address] 86353Kcznxvjt mean volume (Bld) [Entitic vol]10.0 fLNormal9.4-12.4Bon [facility] on above:Performed at [facility] [address] [address]Fcjzdysqs By: #### REINA CORRALES, JE #### [facility] [employer] [address] [place] [address] 49479FYF4.49 mill/mt7Pct3.70-6.10Val[facility] – HarlingenComment on above:Performed By: #### REINA CORRALES, JE #### [facility] [employer] [address] [place] [address] 00043XEW-UV65.1 bERjlo45.0-45.0[facility] – HarlingenComveterans affairs ann [facility] healthcare system on above:Performed By: #### REINA CORRALES, JE #### [facility] [employer] [address] [address]YON09.7 thou/sx8Szxo3.8-10.8[facility] – HarlingenComment on above:Performed By: #### REINA CORRALES, JE #### [facility] [employer] [address] [address]AYA, ESTIMATEDon 28-10-3111NHP/1.73 sq M.predicted MDRD (S/P/Bld) [Vol rate/Area]67 mL/min/{1.73_m2}Normal>60Bon [facility] on above:Pediatric calculator link https://www.kidney.org/professionals/kdoqi/gfr_calculatorped Effective Dec [...] that affects renal tubular secretion. Performed at [facility] [address] [address] Result Comment: Pediatric calculator link https://www.kidney.org/professionals/kdoqi/gfr_calculatorped Effective [...] renal tubular secretion.Performed By: #### POCGL #### [address] [address]NDV,HCTon 05-39-7362Ziwgawydek (Bld) [Volume fraction]25.2 %Low 42.0-52.0[facility] on above:Performed at [address] [address]Myvscibfh By: #### POCGL #### [address] [address]Zeqwhczkal (Bld) [Mass/Vol]8.2 g/dLLow14.0-18.0[facility] on above:Performed By: #### POCGL #### [address] [address]Gvvkxysmmm and Hematocrit panel (Bld)on 66-89-6249Amufpyvbesccav and review of laboratory resultsAbnormalBon Spearfish Regional HospitalInfluenza virus A and B RNA and SARS-CoV-2 (COVID-19) N gene panel SMITHA+probe (Resp)on 40-68-7649LREMP RNA SMITHA+probe Ql (Resp)Not detectedNOT DETECTEDSentara Martha Jefferson HospitalFLUBV RNA SMITHA+probe Ql (Resp)Not detectedNOT DETECTEDLifePoint Health on above:Performed at [address] [address]EHKA-UfI-5 (COVID-19) RNA SMITHA+probe Ql (Resp)Not detectedNOT DETECTEDLifePoint Health on above:Not Detected results do not preclude [...] in nasopharyngeal and nasal swab specimens. Bon Flower HospitalLACTIC ACID, SEPSISon 95-98-1258AIEIFM ACID, SEPSIS0.9 mmol/LNormal0.5-1.9[facility] – HarlingenComment on above:Performed By: #### NTBNP, TSH3, #### [address] [address]XPCBZO ACID, SEPSIS1.0 mmol/LNormal0.5-1.9[facility] – HarlingenComment on above:Performed By: #### LACDS #### [address] [address]Ymutdnt, Sepsison 81-48-0824Dicrvy Acid, Sepsis0.9 mmol/L0.5 - 1.9 mmol/LBon Flower HospitalComment on above:Performed at [facility] [address] [place] [address] 17771Qzk Flower HospitalLactic Acid, Sepsis 1.0 mmol/L0.5 - 1.9 mmol/LBon Flower HospitalComment on above:Performed at [facility] [place] [id number] [facility] Jefferson HospitalNo Panel Informationon 53-01-0003Wty Flower HospitalSARS-COV-2 & INFLUENZA A/Bon 67-09-1004SJVOACAUO A, RT-PCRNot detectedNormalNOT DETECTEDValley Baptist Medical Center – HarlingenComment on above:Performed By: #### CVFLU #### [address] [address]SOUXSLWIE B, RT-PCRNot detectedNormalNOT DETECTEDValley Baptist Medical Center – HarlingenComment on above:Performed By: #### CVFLU #### [address] [address]BOCX-GxT-6 (COVID-19) RNA SMITHA+probe Ql (Unsp spec)Not detected NormalNOT DETECTEDValley Baptist Medical Center – HarlingenComment on above:Result Comment: Not Detected results do [...] nasal swab specimens.Performed By: #### CVFLU #### [address] [address]CXWHB GAPon 76-00-3105Avzfp gap [Moles/Vol]11.0 mmol/LNormal 8.0-16.0[facility] – HarlingenComment on above:Result Comment: ANION GAP = Sodium -(Chloride + CO2)Performed By: #### POCGL #### [address] [address]Ftila Gapon 92-32-1409Wvnwr gap [Moles/Vol]11.0 mmol/L8.0 - 16.0 meq/LBon Flower HospitalComment on above:ANION GAP = Sodium -(Chloride + CO2) Performed at [facility] [address] [address] BASIC METABOL PANELon 37-30-6219Ccnbyhp [Mass/Vol]8.6 mg/dLNormal8.5-10.5SMatagorda Regional Medical CenterComment on above:Performed By: #### POCGL #### [address] [address]Zpuvqklb [Moles/Vol]104 mmol/FGiytye56-041XuqgdValley Baptist Medical Center – HarlingenComment on above:Performed By: #### POCGL #### [address] [address]WF5 [Moles/Vol]23 mmol/PDgdgpx70-06DcqypValley Baptist Medical Center – Harlingen Comment on above:Performed By: #### POCGL #### [address] [address]Yjykjgblks [Mass/Vol]1.2 mg/dLNormal0.4-1.2SMatagorda Regional Medical CenterComment on above:Performed By: #### POCGL #### [facility] [address] [place] [address] 07293Mtmeopm [Mass/Vol]126 mg/bQZjzy95-154LxvtrValley Baptist Medical Center – Harlingen Comment on above:Performed By: #### POCGL #### [facility] [address] [place] [address] 33561Yggyeffra [Moles/Vol]3.9 mmol/LNormal3.5-5.2SMatagorda Regional Medical CenterComment on above:Performed By: #### POCGL #### [facility] [address] [place] [address] 64445Tyllkd [Moles/Vol]138 mmol/JWsccmh940-108VeibaValley Baptist Medical Center – HarlingenComment on above:Performed By: #### POCGL #### [facility] [address] [place] [address] 43008Opni nitrogen [Mass/Vol]20 mg/dLNormal7-22Val[facility] – HarlingenComment on above:Performed By: #### POCGL #### [address] [address]Dtfvw metabolic 2000 panelon 14-60-5116Mrgengx [Mass/Vol]8.6 mg/dL 8.5 - 10.5 mg/dLBon SecAstria Toppenish Hospitaly Magruder HospitalComment on above:Performed at [facility] [address] [place] [address] 94148Yvcufyxm [Moles/Vol]104 mmol/L98 - 111 meq/LBon Secours Mercy HealthCO2 [Moles/Vol]23 mmol/L23 - 33 meq/LBon [facility]ours Mercy HealthCreatinine [Mass/Vol]1.2 mg/dL0.4 - 1.2 mg/dLBon Secours Mercy HealthGlucose [Mass/Vol]126 mg/dGAvuo29 - 108 mg/dLBon Secours Mercy HealthInterpretation and review of laboratory resultsAbnormalBon Secours Mercy HealthPotassium [Moles/Vol]3.9 mmol/L3.5 - 5.2 meq/LBon [facility] Sodium [Moles/Vol]138 mmol/L135 - 145 meq/LBon Secours Mercy HealthUrea nitrogen [Mass/Vol]20 mg/dL7 - 22 mg/dLBon Secours Mercy HealthCT HEAD WO CONTRASTon 64-79-4774GC HEAD WO CONTRASTCT head without contrast COMPARISON: [...] Signed by: Dudley Mattson MD 02/24/24 Final resultNormalSMatagorda Regional Medical CenterCT Head WO contraston . No acute intracranial abnormality. 2. Global cerebral volume loss and chronic microvascular ischemic changes. This document has been electronically signed by: Dudley Mattson MD on 02/24/2024 07:43 [address]s at this facility use dose modulation techniques and iterative reconstructions, and/or weight-based dosing when appropriate to reduce radiation to a low as reasonably achievable.[facility] CONSOL[facility]CT head without contrast COMPARISON: None FINDINGS: Global cerebral volume loss and chronic microvascular ischemic changes. No acute intracranial hemorrhage, extra-axial fluid collection, mass effect, or midline shift. Ventricular system and basilar cisterns are patent. Hensley-white matter differentiation is maintained. No gross orbital abnormality. No suspicious or acute bone lesion. Mastoid air cells and paranasal sinuses are predominantly clear. [facility] Dudley Leger MD - 02/24/2024 CT head [...] to a low as reasonably achievable. [facility] HospitalRadiology Study observation (narrative)[facility] CenterPromisePay Magruder HospitalCT Head WO contrastOrdered By: Dudley Mattson on 62-93-6022Wkg Flower HospitalGFR, ESTIMATEDon 36-42-7096OQZ/1.73 sq M.predicted MDRD (S/P/Bld) [Vol rate/Area]60 mL/min/{1.73_m2}Normal>60Bon [facility] on above:Pediatric calculator link https://www.kidney.org/professionals/kdoqi/gfr_calculatorped Effective Dec [...] that affects renal tubular secretion. Performed at [facility] [address] [place] [address] Result Comment: Pediatric calculator link https://www.kidney.org/professionals/kdoqi/gfr_calculatorped Effective [...] By: #### ANION, CBCND, EGFR1, BMP #### [employer] [address] [place] [address]HLYYPJA POCon 19-67-7820Dxrltif [Mass/Vol]126 mg/dOBbat61-351Mhq [facility] on above:Performed at [facility] [address] [place] [address] 11951Aifvmmzqt By: #### POCGL #### [address] [address]Zfecniv Auto test strip (Bld) [Mass/Vol]on 02-24-2024 Interpretation and review of laboratory resultsAbnormValley Health Bon Flower HospitalHGB,HCTon 27-16-8256Amjeaoenym (Bld) [Volume fraction] 26.3 %Low42.0-52.0Bon [facility] on above:Performed at [facility] [address] [place] [address] 54666Jhrugejjm By: #### POCGL #### [address] [address]Dwsxvrgoyp (Bld) [Mass/Vol]8.3 g/dLLow14.0-18.0Bon [facility] on above:Performed By: #### POCGL #### [address] [address]Lqtboiamcv and Hematocrit panel (Bld)on 26-42-1600Fmtlcnzgnrunvl and review of laboratory resultsAbnoFall River HospitalNo Panel Informationon 21-55-2137Nsb Flower HospitalPortable XR Chest AP single viewon . Sswrsder-ql-spjmtt cardiomegaly with pulmonary edema and pleural effusions. Findings are consistent with CHF. This document has been electronically signed by: Dudley Mattson MD on 02/24/2024 09:42 PMWTHREE [facility]ALTH[facility] CONSOLIDATED1 view chest x-ray Comparison: None Findings: Esrefvre-eh-hbpldu cardiomegaly. Small left and trace right pleural effusions. Cephalization pulmonary vasculature with diffusely increased interstitial markings and diffuse hazy alveolar opacity. No pneumothorax. [facility] Dudley Leger MD - 02/24/2024 1 view chest x-ray Comparison: None Findings: Mfpoplsm-qn-btzdca cardiomegaly. Small left and trace right pleural effusions. Cephalization pulmonary vasculature with diffusely increased interstitial markings and diffuse hazy alveolar opacity. No pneumothorax. IMPRESSION: 1. Rvdfddba-zm-ycyzaa cardiomegaly with pulmonary edema and pleural effusions. Findings are consistent with CHF. This document has been electronically signed by: Dudley Mattson MD on 02/24/2024 09:42 PM [facility] HospitalRadiology Study observation (narrative)[facility] HospitalXR CHEST PORTABLEon 57-31-2182ES CHEST PORTABLE1 view chest x-ray Comparison: None Findings: Rkndavsk-az-sbrtdk cardiomegaly. Small left and trace right pleural effusions. Cephalization pulmonary vasculature with diffusely increased interstitial markings and diffuse hazy alveolar opacity. No pneumothorax. IMPRESSION: 1. Yrzedfhk-ex-iahivb cardiomegaly with pulmonary edema and pleural effusions. Findings are consistent with CHF. This document has been electronically signed by: Dudley Mattson MD on 02/24/2024 09:42 PM Interpreted by: Dudley Mattson MD Signed by: Dudley Mattson MD 02/24/24 Final resultNormalSMatagorda Regional Medical CenterANION GAPon 07-76-8498Vlfic gap [Moles/Vol]10.0 mmol/LNormal8.0-16.0[facility] – HarlingenComment on above: Result Comment: ANION GAP = Sodium -(Chloride + CO2)Performed By: #### GREG CORRALES3, #### [facility] [address] [place], [place] [address]Dilvr Gapon 97-63-4604Hvfxj gap [Moles/Vol]10.0 mmol/L8.0 - 16.0 meq/LBon Flower HospitalComment on above:ANION GAP = Sodium -(Chloride + CO2) Performed at [facility] [address] [place] [address] BASIC METABOL PANELon 48-28-5585Obsbmwc [Mass/Vol]8.4 mg/dLLow8.5-10.5SMatagorda Regional Medical CenterComment on above:Performed By: #### GREG CORRALES3, #### [facility] [address] [place], [place] [address]Nrxyffdh [Moles/Vol]105 mmol/SLmdbpa82-841ZmfexValley Baptist Medical Center – HarlingenComment on above:Performed By: #### REINA CORRALES, HH #### [facility] [address] [place] [address] 86146OC6 [Moles/Vol]22 mmol/HIso38-89QnpzcValley Baptist Medical Center – HarlingenComment on above:Performed By: #### GREG CORRALES3, HH #### [facility] [address] [place] [address]46[address]Qpzdcghcvd [Mass/Vol]1.3 mg/dLHigh0.4-1.2SMatagorda Regional Medical CenterComment on above:Performed By: #### REINA CORRALES, HH #### [facility] [address] [place] [address] 554[address]Crkqakb [Mass/Vol]148 mg/aGYcpp70-194AtcubValley Baptist Medical Center – Harlingen Comment on above:Performed By: #### REINA CORRALES, HH #### [facility] [address] [place] [address] 45629Qxhrpswnj [Moles/Vol]4.3 mmol/LNormal3.5-5.2SMatagorda Regional Medical CenterComment on above:Performed By: #### REINA CORRALES, HH #### [facility] [address] [place] [address] 51441Mseofz [Moles/Vol]137 mmol/RErawsm956-044VnyfmValley Baptist Medical Center – HarlingenComment on above:Performed By: #### REINA CORRALES, #### [facility] [address] [place] [address] 95839Vstm nitrogen [Mass/Vol]24 mg/dLHigh7-22[facility] – HarlingenComment on above:Performed By: #### REINA CORRALES, HH #### [facility] [address] [place] [address] 34626Qxsmn metabolic 2000 panelon 51-05-8501Ayfgflb [Mass/Vol]8.4 mg/dL Low8.5 - 10.5 mg/dLBon Flower HospitalComment on above:Performed at [facility] [address] [place] [address]Oyohkvbb [Moles/Vol]105 mmol/L 98 - 111 meq/LBon Flower HospitalCO2 [Moles/Vol]22 mmol/LLow23 - 33 meq/L Bon IT MOVES ITCreatinine [Mass/Vol]1.3 mg/dLHigh0.4 - 1.2 mg/dLBon [facility] M[facility]ES ITGlucose [Mass/Vol]148 mg/rYVapp41 - 108 mg/dLBon IT MOVES ITPotassium [Moles/Vol]4.3 mmol/L3.5 - 5.2 meq/LBon IT MOVES ITSodium [Moles/Vol]137 mmol/L135 - 145 meq/LBon IT MOVES ITUrea nitrogen [Mass/Vol]24 mg/dLHigh7 - 22 mg/dLBon IT MOVES ITCardiac echo study ProcedureOrdered By: Bambi Huntley on 71-84-5056Dogjfnbfx Aorta3.0 cm [employer] Phone: Ascending Aorta Index1.53 cm/m2[facility] Phone: AV Cusp Mmode1.7 cmBanner Casa Grande Medical Center [facility] Phone: AV Peak Kvcutwvq77jmIqLla [facility] Phone: AV Peak Velocity1.6 m/sBon [facility] Phone: AV Velocity Ratio0.44[employer] Phone: Body surface area Derived from formula2 m2[facility] Phone: EF BP36 %Fsjfukqm33 - 100 %[employer] Phone: Est. RA Sulkdsnm0rzQpHxf [facility] Phone: Fractional Shortening 2D18 %28 - 44 %[employer] Phone: Interpretation and review of laboratory results AbnormalHowAboutWe Phone: IVSd1.0 cm0.6 - 1.0 cmHowAboutWe Phone: LA Area 2C22.6 cm2Bon [facility] Work Phone: la Area 4C22.8 cm2Bon [facility] Work Phone: LA Diameter4.4 cmBon [facility] Work Phone: LA Major Axis6.5 cmBon [facility] Work Phone: la Minor Axis6.0 cmBon [facility] Work Phone: LA Size Index2.24 cm/m2Bon [facility] Work Phone: LA Volume BP68 yAYkjukcmj03 - 58 mLBon [facility] Work Phone: LA Volume Index BP35 ml/c4Fnggacwq18 - 34 ml/m2Bon [facility] Work Phone: LA Volume Index MOD A2C34 ml/m216 - 34 ml/m2Bon [facility] Work Phone: LA Volume Index MOD A4C33 ml/m216 - 34 ml/m2Bon [facility] Work Phone: LA Volume MOD A2C67 uYVfzdusqa43 - 58 mLBon [employer] Work Phone: LA Volume MOD A4C65 xPUxefizsf23 - 58 mLBon [facility] Work Phone: LV EDV C1U237 mLMiCarga [facility] Work Phone: LV EDV M1G920 mLBon [facility] Work Phone: LV EDV Index A2C69 mL/m2Bon [facility] Work Phone: LV EDV Index A4C66 mL/m2Bon [facility] Work Phone: LV Ejection Fraction A2C38 %[employer] Work Phone: LV Ejection Fraction A4C37 %Bon [facility] Work Phone: LV ESV A2C83 mLBon [facility] Work Phone: [phone] ESV A4C82 mLBon [facility] Work Phone: [phone] ESV Index A2C42 mL/m2Bon [facility] Work Phone: [phone] ESV Index A4C42 mL/m2Bon [facility] Work Phone: [phone] IVRT63.0 msBon [facility] Work Phone: [phone] Mass 2D194.4 g88 - 224 gBon [facility] Work Phone: [phone] Mass 2D Index99.2 g/m249 - 115 g/m2Bon [facility] Work Phone: [phone] RWT Ratio0.44Bon [employer] Work Phone: [phone] cm4.2 - 5.9 cmBon [facility] Work Phone: [phone] Index2.55 cm/m2Bon [facility] Work Phone: LVIDs4.1 cmBon [employer] Work Phone: LVIDs Index2.09 cm/m2Bon [facility] Work Phone: [phone] Peak Oobtgtsq1roXlKud [facility] Work Phone: [phone] Peak Velocity0.7 m/sBon [facility] Work Phone: [phone] cmAbnormal0.6 - 1.0 cmBon [facility] Work Phone: MR Peak Wekpxfcm22fkFxDve [facility] Work Phone: MR Peak Velocity4.5 m/sBon [facility] Work Phone: [phone] E Velocity1.63 m/sBon [facility] Work Phone: PR Max Velocity1.0 m/sBon [facility] Phone: Pulmonary Artery JNG2nuRxFtw [facility] Phone: [phone] Max Velocity0.8 m/sBon [facility] Phone: [phone] Peak Katkdmbo3loRhWfn [facility] Phone: [phone] cmBon [facility] Phone: [phone] [facility] Phone: [phone] cmAbnormal1.7 cmBon [facility] Phone: TR Max Velocity3.02 m/sBon [facility] Phone: TR Peak Baloslul98wcFdSob [facility] Phone: TV E Wave Velocity0.5 m/sBon [facility] Phone: [phone] [facility] Phone: Cardiac echo study Procedureon 09-04-2280Mngm Ventricle: Moderately reduced left ventricular systolic function [...] echo report scanned into cart under care everywhere.[facility] Radiology Study observation (narrative)Bon [facility]ruleEKG Rhythm Strip on 49-00-1439WY 93PACEARTBon [facility] HealthHR 100PACEARTBon [facility] HealthHR 80PACEARTBon [facility] Modernay HealthGFR, ESTIMATEDon 12-47-1950FNZ/1.73 sq M.predicted MDRD (S/P/Bld) [Vol rate/Area]55 mL/min/{1.73_m2}Abnormal>60Bon [facility] on above:Pediatric calculator link https://www.kidney.org/professionals/kdoqi/gfr_calculatorped Effective Dec [...] that affects renal tubular secretion. Performed at [facility] [address] [place] [address] Result Comment: Pediatric calculator link https://www.kidney.org/professionals/kdoqi/gfr_calculatorped Effective [...] secretion.Performed By: #### REINA CORRALES, JE #### [address] [address]QPB,HCTon 42-69-2213Vevpzzxyvs (Bld) [Volume fraction]25.3 %Low 42.0-52.0[facility] on above:Performed at [address] [address]Hjpwpalot By: #### REINA CORRALES HH #### [address] [address]Chlglzzfga (Bld) [Mass/Vol]8.0 g/dLLow14.0-18.0Bon [facility] on above:Performed By: #### REINA CORRALES, #### [address] [address]Mqbczlhyhp and Hematocrit panel (Bld)on 99-19-0588Kmbrrzuwiostvv and review of laboratory resultsAbnormValley HealthNo Panel Informationon 68-21-1244Ahcxwapnwjyugj and review of laboratory resultsAbnormalSentara Halifax Regional HospitalANION GAPon 54-04-2762Qvfzo gap [Moles/Vol]11.0 mmol/LNormal8.0-16.0[facility] – HarlingenComment on above:Result Comment: ANION GAP = Sodium -(Chloride + CO2)Performed By: #### REINA CORRALES, JE #### [address] [address]Yrvey Gapon 52-39-2582Igguc gap [Moles/Vol]11.0 mmol/L8.0 - 16.0 meq/LBon [facility]ours Mercy HealthComment on above:ANION GAP = Sodium -(Chloride + CO2) Performed at [facility] [address] [place] [address] BASIC METABOL PANELon 71-95-9071Zsddiyc [Mass/Vol]8.5 mg/dLNormal8.5-10.5SMatagorda Regional Medical CenterComment on above:Performed By: #### GREG CORRALES3, #### [facility] [address] [place] [address] 55526Mbfugddx [Moles/Vol]101 mmol/WCtxqjg90-911RtojnValley Baptist Medical Center – HarlingenComment on above:Performed By: #### GREG CORRALES3, HH #### [facility] [address] [place] [address]AD0 [Moles/Vol]22 mmol/UXjk05-22VomldValley Baptist Medical Center – HarlingenComment on above:Performed By: #### GREG CORRALES3, #### [facility] [address] [place] [address]1426Rkcidtkfpi [Mass/Vol]0.9 mg/dLNormal0.4-1.2SMatagorda Regional Medical CenterComment on above:Performed By: #### REINA CORRALES, HH #### [facility] [address] [place] [address]Nintgig [Mass/Vol]165 mg/xNUuzi86-816UymnlValley Baptist Medical Center – Harlingen Comment on above:Performed By: #### GREG CORRALES3, #### [facility] [address] [place] [address]0551Lpvanoxjx [Moles/Vol]4.2 mmol/LNormal3.5-5.2SMatagorda Regional Medical CenterComment on above:Performed By: #### GREG CORRALES3, HH #### [facility] [address] [place] [address]Najmju [Moles/Vol]134 mmol/SElw233-509RmzunValley Baptist Medical Center – Harlingen Comment on above:Performed By: #### GREG CORRALES3, HH #### [facility] [address] [place] [address]Jpyo nitrogen [Mass/Vol]18 mg/dLNormal7-22SaCHRISTUS Mother Frances Hospital – Sulphur SpringsComment on above:Performed By: #### NTBNP, TSH3, #### [facility] [address] [place] [address] 168[address]Wzjft metabolic 2000 panelon 04-99-2548Tveimhs [Mass/Vol]8.5 mg/dL 8.5 - 10.5 mg/dLBon Flower HospitalComment on above:Performed at [facility] [address] [place] [address]Simdcfkq [Moles/Vol]101 mmol/L98 - 111 meq/LBon Flower HospitalCO2 [Moles/Vol]22 mmol/LLow23 - 33 meq/LBon [facility]lower HospitalCreatinine [Mass/Vol]0.9 mg/dL0.4 - 1.2 mg/dLBon Flower HospitalGlucose [Mass/Vol]165 mg/oMTfxq26 - 108 mg/dLBon Flower HospitalInterpretation and review of laboratory resultsAbnormalBon Flower HospitalPotassium [Moles/Vol]4.2 mmol/L3.5 - 5.2 meq/LBon [facility] Sodium [Moles/Vol]134 mmol/MGzd339 - 145 meq/LBon Flower HospitalUrea nitrogen [Mass/Vol]18 mg/dL7 - 22 mg/dLBon Flower HospitalBrain Natriuretic Peptideon 08-71-8424Xulnutlnoxv peptide.B prohormone N-Terminal IA [Mass/Vol] 4637.0 pg/mLHigh0.0 - 449.0 pg/mLBon Flower HospitalComment on above: Performed at [facility] [address] [place] [address]JEV Rhythm Stripon 31-35-3580DHHLUGMRjw Flower HospitalHR 120PACEARTBon Flower HospitalPACEARTSentara Martha Jefferson HospitalGFR, ESTIMATEDon 93-57-2657NGZ/1.73 sq M.predicted MDRD (S/P/Bld) [Vol rate/Area]85 mL/min/{1.73_m2}Normal>60Bon Flower HospitalComment on above:Pediatric calculator link https://www.kidney.org/professionals/kdoqi/gfr_calculatorped Effective [...] that affects renal tubular secretion[place] [address] Result Comment: Pediatric calculator link https://www.kidney.org/professionals/kdoqi/gfr_calculatorped Effective [...] tubular secretion.Performed By: #### SAVANNA, TSH3, #### [address] [address]RAORYEE POCon 14-83-6137Hqxstio [Mass/Vol]155 mg/cMXmyt20-987Igf [facility] on above:Performed at [address] [address]Ucsjtewiw By: #### POCGL #### [address] [address]Txlvmki Auto test strip (Bld) [Mass/Vol]on 02-22-2024 Interpretation and review of laboratory resultsAbnormalRetreat Doctors' HospitalHGB,HCTon 03-07-2072Eglxkknvam (Bld) [Volume fraction] 28.7 %Low42.0-52.0[facility] on above:Performed at [address] [address]Nknxclhad By: #### NTTRINIDADP, TSH3, #### [address] [address]Cdreyooafz (Bld) [Mass/Vol]9.1 g/dLLow14.0-18.0Sentara Martha Jefferson HospitalComment on above:Performed By: #### REINA CORRALES, JE #### [facility] [address] [place] [address]76[address]Vnzlfbjnmb (Bld) [Volume fraction]30.0 %Low42.0-52.0[facility] – HarlingenComment on above:Performed By: #### REINA CORRALES, JE #### [address] [address]Cdwtxcjvwk (Bld) [Mass/Vol]9.5 g/dLLow14.0-18.0[facility] Center – HarlingenComment on above:Performed By: #### REINA CORRALES, #### [address] [address]Yaermcsjfl and Hematocrit panel (Bld)on 68-10-7624Txaxvflrjbjhwb and review of laboratory resultsAbnormValley HealthHematocrit (Bld) [Volume fraction]30.0 %Low42.0 - 52.0 %Bon Flower HospitalComment on above:Performed at [facility] [address] [place] [address]Oodcgyuujw (Bld) [Mass/Vol]9.5 g/dLLowSentara Martha Jefferson Hospital Interpretation and review of laboratory resultsAbnoAvera McKennan Hospital & University Health CenterNT PRO-B NATRIURETIC PEPTIDEon 20-26-1118Itjwmtdjvbg peptide B (Bld) [Mass/Vol]4637.0 pg/mLHigh0.0-449.0[facility] Comment on above:Performed By: #### REINA CORRALES, #### [address] [address]Owywafqikpa peptide.B prohormone N-Terminal [place] [Mass/Vol]on 57-28-8407Dkoqvskdsvbdni and review of laboratory resultsAbnoCarilion ClinicNo Panel Informationon 03-02-8723Qfh Spe[facility]fish Regional HospitalTSH DL <= 0.005 mIU/L Qnon 92-26-7054QXF Qn0.678 m[IU]/LBon Flower HospitalComveterans affairs ann [facility] healthcare system on above:Performed at [facility] [address] [place] [address]QYQ THIRD GENERATIONon 09-19-0729YLJ THIRD GENERATION0.678 uIU/mLNormal0.400-4.200SaCHRISTUS Mother Frances Hospital – Sulphur SpringsComment on above:Performed By: #### REINA CORRALES, #### [facility] [address] [place] [address]DYDYEZP POCon 21-21-1574Wpoblxa [Mass/Vol]185 mg/pVDtjg79-294Ddm Flower HospitalComveterans affairs ann arbor healthcare system on above:Performed at [facility] [address] [place] [address] 3[address]Jzcybpuuf By: #### REINA CORRALES, JE #### [facility] [address] [place] [address]Foskuge Auto test strip (Bld) [Mass/Vol]on 02-21-2024 Interpretation and review of laboratory resultsAbnormalRetreat Doctors' HospitalHGB,HCTon 90-63-3644Cifusssuub (Bld) [Volume fraction] 32.1 %Low42.0-52.0Bon [facility] on above:Performed at [facility] [address] [place] [address] 21383Zulfqswus By: #### REINA CRORALES, #### [facility] [address] [place] [address] 313[address]Mbewjtsqoz (Bld) [Mass/Vol]10.3 g/dLLow14.0-18.0[facility] on above:Performed By: #### REINA CORRALES, #### [facility] [address] [place] [address]Xaliehmmrk and Hematocrit panel (Bld)on 14-13-9172Qcnwdgxqvyjwjc and review of laboratory resultsAbnormalSentara Virginia Beach General Hospital HealthTYPE AND SCREENon 92-16-2556XNVIOfq Flower HospitalRh Factor PositiveBon [facility] HealthTYPE AND SCREEN CAPTURE on 88-40-3355ZPCJMPDL FAZAL CAPTURENegativeNormalSaint Caryn's Medical Center Comment on above:Performed By: #### POCGL #### [facility] [address] [place], [place] [address]SD CAPTURE (2 D CLONES)PositivePeterson Regional Medical Center Comment on above:Performed By: #### POCGL #### [facility] [address], [place] [address]IML CAPTUREONoDeTar Healthcare SystemComment on above: Performed By: #### POCGL #### [facility] [address] [place] [address]PT LUMBAR SPINE 1 VWon 72-12-7166HU LUMBAR SPINE 1 VWMOBILE LATERAL LUMBAR SPINE: [...] Signed by: Partha Victor MD 02/21/24 Final resultPeterson Regional Medical CenterXR Lumbar spine Single viewon 55-85-8463Mfqylrpnqkzokf appearance of the lumbar spine. This report has been created using voice recognition software. It may contain minor errors which are inherent in voice recognition technology. Electronically signed by Dr. Partha VictorSARAI [facility] CONSOLIDATEDMOBILTosha LATERAL LUMBAR SPINE: CLINICAL INFORMATION: surgery COMPARISON: No prior study. TECHNIQUE: A single lateral mobile view of the lumbar spine was obtained For localization purposes. FINDINGS: 2 spinal needles are present posteriorly, directed at the L1 and L2 levels. [facility] ROBERT VALEPartha ball MD - 02/21/2024 [...] technology. Electronically signed by Dr. Partha Cabrera Flower HospitalRadiology Study observation (narrative)[facility] HospitalXR Lumbar spine Single viewOrdered By: Partha Victor on 98-96-4507Tew [facility] Work Phone: ecg 12 Leadon 95-63-0340Azttlw fibrillation, rightward axis, low voltage, PVCs, nonspecific T wave abnormality, abnormal ECGCPACSUniversity Hospitals Cleveland Medical Center Work Phone: activated partial thromboplastin time (aPTT) in platelet poor plasma by coagulation aon 36-48-8444pOFT Coag (PPP) [Time] Activated partial thromboplastin time (aPTT) in platelet poor plasma by coagulation aHigh22.3-36.2FCommunity Regional Medical CenterBasophils Auto (Bld) [#/Vol]on 14-27-8663Dyolkzjqf (Bld) [#/Vol]Automated basophil count0.0-0.1 [facility] HospitalBasophils/100 WBC Auto (Bld)on 02-14-2024 Basophils/100 WBC (Bld)Automated basophil %0.2-2.0[facility] HospitalEosinophils/100 WBC Auto (Bld)on 32-07-4468Ydltuqyychf/100 WBC (Bld) Automated eosinophil %0.9-7.0[facility] HospitalErythrocyte distribution width Auto (RBC) [Ratio]on 03-98-0574Lpoqxflrabo distribution width (RBC) [Ratio]Erythrocyte distribution width [Ratio] by Automated count11.0-15.0 [facility] HospitalEstimated glomerular filtration rate (GFR) non- Americanon 42-68-6542MYI/1.73 sq M.predicted among non-blacks MDRD (S/P/Bld) [Vol rate/Area]Estimated glomerular filtration rate (GFR) non- AmericanLow>=60 mL/min/1.73m 2FCommunity Regional Medical CenterHematocrit Auto (Bld) [Volume fraction]on 36-36-8632Rauacuqyhs (Bld) [Volume fraction]Hematocrit [Volume Fraction] of Blood by Automated jiqqbXwh09.0-54.0[facility] HospitalHemoglobin [Mass/volume] in Bloodon 73-40-6286Cjvgndqjhj (Bld) [Mass/Vol]Hemoglobin [Mass/volume] in ErhzcHzy23.0-18.0[facility] HospitalINR in Platelet poor plasma by Coagulation assayon 32-38-4897EUV Coag (PPP) [Relative time]INR in Platelet poor plasma by Coagulation assay [facility] HospitalComment on above:DESIRED INR:2.0-3.0 CONDITIONS NOT LISTED BELOW2.5-3.5 FOR PROSTHETIC HEART VALVE REPLACEMENT2.5-3.5 RECURRENT THROMBOSISLaboratory - Chemistry and Chemistry - challengeon 55-23-0372Busrwky [Mass/Vol]9.2 mg/dL8.5-10.1FCommunity Regional Medical CenterChloride [Moles/Vol] 108 mmol/CRmbz83-797HaescfqdpOhio Valley Surgical HospitalCO2 [Moles/Vol]28.1 mmol/L 21.0-32.0[facility] HospitalCreatinine [Mass/Vol]1.47 mg/dLHigh 0.70-1.30[facility] HospitalGFR/1.73 sq M.predicted MDRD (S/P/Bld) [Vol rate/Area]56 mL/min/{1.73_m2}Low>=60 mL/min/1.73m 2FCommunity Regional Medical CenterGlucose [Mass/Vol]101 mg/tD23-334DgaveohcxOhio Valley Surgical Hospital Potassium [Moles/Vol]4.2 mmol/L3.5-5.1FUniversity Hospitals Beachwood Medical Centerodium [Moles/Vol]144 mmol/O261-142NgidtxjdjOhio Valley Surgical HospitalUrea nitrogen [Mass/Vol]25.0 mg/dLHigh7.0-18.0[facility] HospitalUrea nitrogen/Creatinine [Mass ratio]17.0 mg/mgOhio Valley Surgical Hospital Laboratory - Hematology and Cell countson 44-99-3797Jrzfileg granulocytes/100 WBC (Bld)0.2 %0.0-0.5FCommunity Regional Medical CenterLeukocytes [#/volume] corrected for nucleated erythrocytes in Blood by Automated counon 51-17-4655YXS corrected for nucl RBC Auto (Bld) [#/Vol]Leukocytes [#/volume] corrected for nucleated erythrocytes in Blood by Automated coun4.0-11.0[facility] HospitalLymphocytes Auto (Bld) [#/Vol]on 53-04-3772Kdfpxsgojxa (Bld) [#/Vol]Lymphocytes [#/volume] in Blood by Automated countLow1.2-3.8[facility] HospitalLymphocytes/100 WBC Auto (Bld)on 02-14-2024 Lymphocytes/100 WBC (Bld)Lymphocytes/100 leukocytes in Blood by Automated count Low20.5-60.0[facility] HospitalH Auto (RBC) [Entitic mass]on 82-91-3625DBP (RBC) [Entitic mass]MCH [Entitic mass] by Automated countHigh 25.9-34.0[facility]acon[facility] HospitalHC Auto (RBC) [Mass/Vol]on 57-83-4401DGWX (RBC) [Mass/Vol]MCHC [Mass/volume] by Automated count29.9-35.2 [facility] HospitalMCV Auto (RBC) [Entitic vol]on 44-71-4930SYD (RBC) [Entitic vol]MCV [Entitic volume] by Automated ktrboUjvi56.0-94.0[facility] HospitalMonocytes Auto (Bld) [#/Vol]on 24-44-0883Ynjwbquhj (Bld) [#/Vol]Automated blood monocyte count0.3-0.8[facility] Monocytes/100 WBC Auto (Bld)on 30-84-6132Zkjcynhhe/100 WBC (Bld)Automated monocyte %1.7-12.0[facility] HospitalNeutrophils Auto (Bld) [#/Vol]on 53-52-0983Hperngdxzxw (Bld) [#/Vol]Neutrophils [#/volume] in Blood by Automated count1.4-6.5FCommunity Regional Medical CenterNeutrophils/100 WBC Auto (Bld)on 42-34-0850Wzziqhkivkj/100 WBC (Bld)Automated neutrophil %43.0-75.0 [facility] HospitalNo Panel Informationon 71-77-7411Lloukcmgfgf # (Auto)0.2 10 3/uL0.0-0.7FCommunity Regional Medical CenterImmature Granulocyte # (Auto)0.01 10 3/uL0.00-0.03[facility] HospitalPlatelet mean volume Auto (Bld) [Entitic vol]on 49-25-1055Wcccusab mean volume (Bld) [Entitic vol] Platelet mean volume [Entitic volume] in Blood by Automated count9.5-13.5 [facility] HospitalPlatelets Auto (Bld) [#/Vol]on 02-14-2024 Platelets (Bld) [#/Vol]Platelets [#/volume] in Blood by Automated bxexz827-476 [facility] HospitalProthrombin time (PT)on 03-97-0231PH Coag (PPP) [Time]Prothrombin time (PT)High9.0-11.6FCommunity Regional Medical CenterRBC Auto (Bld) [#/Vol]on 23-93-6026JEF (Bld) [#/Vol]Erythrocytes [#/volume] in Blood by Automated countLow4.70-6.10[facility] Hospitalerum or plasma anion gap determinationon 16-66-2363Osnew gap [Moles/Vol]Serum or plasma anion gap determinationOhio Valley Surgical HospitalAlanine aminotransferase [Enzymatic activity/volume] in Serum or PlasmaOrdered By: Opal Ga on 31-26-5895NNT [Catalytic activity/Vol]Alanine aminotransferase [Enzymatic activity/volume] in Serum or Plasma7-[facility] HospitalAlbumin [Mass/volume] in Serum or Plasma by Bromocresol green (BCG) dye binding metho Ordered By: Opal Ga on 81-18-7130Kbbrhwl BCG dye [Mass/Vol]Albumin [Mass/volume] in Serum or Plasma by Bromocresol green (BCG) dye binding metho 3.5-5.7FCommunity Regional Medical CenterAlkaline phosphatase [Enzymatic activity/volume] in Serum or PlasmaOrdered By: Opal Ga on 48-02-3479CRV [Catalytic activity/Vol]Alkaline phosphatase [Enzymatic activity/volume] in Serum or HmqtvhYsyf42-125GsxmsigumOhio Valley Surgical HospitalAspartate aminotransferase [Enzymatic activity/volume] in Serum or PlasmaOrdered By: Opal Ga on 30-79-3897KSL [Catalytic activity/Vol]Aspartate aminotransferase [Enzymatic activity/volume] in Serum or YwxxmrPfwh26-42HuxqemspuOhio Valley Surgical HospitalBasophils Auto (Bld) [#/Vol]Ordered By: Opal Ga on 12-30-2023 Basophils (Bld) [#/Vol]Automated basophil count0.0-0.2FCommunity Regional Medical CenterBasophils/100 WBC Auto (Bld)Ordered By: Opal Ga on 12-30-2023 Basophils/100 WBC (Bld)Automated basophil %.[facility] Bilirubin.total [Mass/volume] in Serum or PlasmaOrdered By: Opal Ga on 61-98-8141Xfvwvwymj [Mass/Vol]Bilirubin.total [Mass/volume] in Serum or Plasma 0.3-1.0[facility] HospitalCalcium [Mass/volume] in Serum or Plasma Ordered By: Opal Ga on 61-28-2123Clryxld [Mass/Vol]Calcium [Mass/volume] in Serum or Plasma8.6-10.3FCommunity Regional Medical CenterCarbon dioxide, total [Moles/volume] in Serum or PlasmaOrdered By: Opal Ga on 55-78-6002YA0 [Moles/Vol]Carbon dioxide, total [Moles/volume] in Serum or Elhtwy27.0-31.0 [facility] HospitalChloride [Moles/volume] in Serum or Plasma Ordered By: Opal Ga on 89-18-9436Baamvsgd [Moles/Vol]Chloride [Moles/volume] in Serum or Eoowtm27-600SmgnzagfoOhio Valley Surgical HospitalCreatinine [Mass/volume] in Serum or PlasmaOrdered By: Opal Ga on 78-16-1740Vyoadmcbhp [Mass/Vol]Creatinine [Mass/volume] in Serum or Plasma0.70-1.30[facility] HospitalEosinophils Auto (Bld) [#/Vol]Ordered By: Opal Ga on 37-21-0280Hmcegkrczib (Bld) [#/Vol]Automated eosinophil count0.0-0.45[facility] HospitalEosinophils/100 WBC Auto (Bld)Ordered By: Opal Ga on 25-29-8529Pijqoaetgmb/100 WBC (Bld)Automated eosinophil %.[facility] HospitalErythrocyte distribution width Auto (RBC) [Ratio]Ordered By: Opal Ga on 36-33-7179Hwnigghckkk distribution width (RBC) [Ratio]Erythrocyte distribution width [Ratio] by Automated count12.0-14.8[facility] HospitalGlobulin Calc (S) [Mass/Vol]Ordered By: Opal Ga on 73-43-4922Ruhvhrsl (S) [Mass/Vol]Serum globulin measurement by calculation (mass/volume)[facility] HospitalGlucose [Mass/volume] in Serum or PlasmaOrdered By: Opal Ga on 98-70-1243Qovpzhn [Mass/Vol]Glucose [Mass/volume] in Serum or Plasma 70-100[facility] HospitalComment on above:ADA recommended reference rangeRandom Glucose Reference Range is dependent on time and content of last meal. Glucose of more than 200 mg/dL in a nonstressed, ambulatory subject supports the diagnosisof Diabetes Mellitus.Hematocrit Auto (Bld) [Volume fraction]Ordered By: Opal Ga on 23-62-7875Yrdwixodge (Bld) [Volume fraction] Hematocrit [Volume Fraction] of Blood by Automated ttyphEle95.8-50.0[facility] HospitalHemoglobin [Mass/volume] in BloodOrdered By: Opal Ga on 73-77-5922Hkhrelxdph (Bld) [Mass/Vol]Hemoglobin [Mass/volume] in BloodLow 13.0-17.0[facility] HospitalLeukocytes [#/volume] corrected for nucleated erythrocytes in Blood by Automated counOrdered By: Opal Ga on 48-19-0556FKU corrected for nucl RBC Auto (Bld) [#/Vol]Leukocytes [#/volume] corrected for nucleated erythrocytes in Blood by Automated coun4.1-10.5FCommunity Regional Medical CenterLymphocytes Auto (Bld) [#/Vol]Ordered By: Opal Ga on 06-95-1413Vwyowzivhyy (Bld) [#/Vol]Lymphocytes [#/volume] in Blood by Automated countLow1.00-4.8[facility] HospitalLymphocytes/100 WBC Auto (Bld) Ordered By: Opal Ga on 96-28-6205Wrtgwklhetw/100 WBC (Bld)Lymphocytes/100 leukocytes in Blood by Automated count.[facility] Surgical HospitalMCH Auto (RBC) [Entitic mass]Ordered By: Opal Ga on 07-84-8715AUO (RBC) [Entitic mass]MCH [Entitic mass] by Automated fddsuWjgh19.5-35.2FCommunity Regional Medical CenterMCHC Auto (RBC) [Mass/Vol]Ordered By: Opal Ga on 28-09-7717EGQJ (RBC) [Mass/Vol]MCHC [Mass/volume] by Automated count32.5-35.6FCommunity Regional Medical CenterMCV Auto (RBC) [Entitic vol]Ordered By: Opal Ga on 31-14-9949EZS (RBC) [Entitic vol]MCV [Entitic volume] by Automated countHigh 83.5-101[facility] HospitalMonocytes Auto (Bld) [#/Vol]Ordered By: Opal Ga on 50-03-4866Decnajyli (Bld) [#/Vol]Automated blood monocyte count 0.0-0.8[facility] HospitalMonocytes/100 WBC Auto (Bld)Ordered By: Opal Ga on 34-23-9279Addrcyyiz/100 WBC (Bld)Automated monocyte %.[facility] HospitalNeutrophils Auto (Bld) [#/Vol]Ordered By: Opal Ga on 91-11-1753Pjvjhbhipqf (Bld) [#/Vol]Neutrophils [#/volume] in Blood by Automated count1.8-7.7FCommunity Regional Medical CenterNeutrophils/100 WBC Auto (Bld) Ordered By: Opal Ga on 35-08-6024Ugwitctefpe/100 WBC (Bld)Automated neutrophil %.[facility] HospitalNo Panel InformationOrdered By: Opal Ga on 15-85-8488Axrouordd GFR (CKD-EPI)> 60.0 mL/MinOhio Valley Surgical HospitalPharmacy Creatinine Clearance (ChemN/[facility] DaytonNucleated erythrocytes [Presence] in Blood by Automated countOrdered By: Opal Ga on 74-32-9466Pwxkwtfdb RBC Auto Ql (Bld)Nucleated erythrocytes [Presence] in Blood by Automated count0-0.5FCommunity Regional Medical Center Platelet mean volume Auto (Bld) [Entitic vol]Ordered By: Opal Ga on 89-01-5498Kufsaueq mean volume (Bld) [Entitic vol]Platelet mean volume [Entitic volume] in Blood by Automated count6.6-10.1FCommunity Regional Medical Center Platelets Auto (Bld) [#/Vol]Ordered By: Opal Ga on 67-77-7119Omgnrdxsu (Bld) [#/Vol]Platelets [#/volume] in Blood by Automated -523DdrypzebxOhio Valley Surgical HospitalPotassium [Moles/volume] in Serum or PlasmaOrdered By: Opal Ga on 08-67-1073Gbpvfsbjo [Moles/Vol]Potassium [Moles/volume] in Serum or Plasma 3.5-5.1FCommunity Regional Medical CenterProtein [Mass/volume] in Serum or Plasma Ordered By: Opal Ga on 71-87-6551Ztzgelv [Mass/Vol]Protein [Mass/volume] in Serum or PlasmaLow6.4-8.9[facility] HospitalRBC Auto (Bld) [#/Vol] Ordered By: Opal Ga on 28-33-8969QDM (Bld) [#/Vol]Erythrocytes [#/volume] in Blood by Automated countLow3.90-5.60[facility] Hospitalerum or plasma albumin/globulin mass ratioOrdered By: Opal Ga on 12-30-2023 Albumin/Globulin [Mass ratio]Serum or plasma albumin/globulin mass ratio [facility] Hospitalerum or plasma anion gap determinationOrdered By: Opal Ga on 36-32-0869Sdlow gap [Moles/Vol]Serum or plasma anion gap determination6.0-15.0[facility] Hospitalodium [Moles/volume] in Serum or PlasmaOrdered By: Opal Ga on 71-54-7860Vksnke [Moles/Vol]Sodium [Moles/volume] in Serum or Blegds398-965DtbzihvlcOhio Valley Surgical Hospital Thyrotropin [Units/volume] in Serum or PlasmaOrdered By: Opal Ga on 59-88-5906BQF QnThyrotropin [Units/volume] in Serum or PlasmaLow0.45-5.33 [facility] HospitalThyroxine (T4) free [Mass/volume] in Serum or PlasmaOrdered By: Opal Ga on 11-76-3397Jktd T4 [Mass/Vol]Thyroxine (T4) free [Mass/volume] in Serum or PlasmaHigh0.61-1.12[facility] Urea nitrogen [Mass/volume] in Serum or PlasmaOrdered By: Opal Ga on 53-23-6743Brje nitrogen [Mass/Vol]Urea nitrogen [Mass/volume] in Serum or Plasma 09-28[facility] HospitalWBC Auto (Bld) [#/Vol]Ordered By: Opal Ga on 95-48-9143ISQ (Bld) [#/Vol]Leukocytes [#/volume] in Blood by Automated count4.1-10.5FCommunity Regional Medical CenterAlanine aminotransferase [Enzymatic activity/volume] in Serum or PlasmaOrdered By: Opal Ga on 60-39-8554XLA [Catalytic activity/Vol]18 U/L7-52[facility] HospitalAlbumin [Mass/volume] in Serum or Plasma by Bromocresol green (BCG) dye binding methoOrdered By: Opal Ga on 79-42-2157Ortjeln BCG dye [Mass/Vol]4.1 g/dL3.5-5.7FCommunity Regional Medical CenterAlkaline phosphatase [Enzymatic activity/volume] in Serum or PlasmaOrdered By: Opal Ga on 32-16-9444FVD [Catalytic activity/Vol]117 U/HNyrs09-318WdfxsteytOhio Valley Surgical Hospital Aspartate aminotransferase [Enzymatic activity/volume] in Serum or PlasmaOrdered By: Opal Ga on 69-33-2067OMN [Catalytic activity/Vol]29 U/V31-31ZtaxjlspwOhio Valley Surgical HospitalBasophils Auto (Bld) [#/Vol]Ordered By: Opal Ga on 14-77-1467Pibvjjfze (Bld) [#/Vol]0.0 10*3/uL0.0-0.2FCommunity Regional Medical CenterBasophils/100 WBC Auto (Bld)Ordered By: Opal Ga on 09-12-2023 Basophils/100 WBC (Bld)0.8 %.[facility] HospitalBilirubin.total [Mass/volume] in Serum or PlasmaOrdered By: Opal Ga on 71-97-0928Uoqltzeli [Mass/Vol]0.7 mg/dL0.3-1.0[facility] HospitalCalcium [Mass/volume] in Serum or PlasmaOrdered By: Opal Ga on 82-13-6782Hubhluy [Mass/Vol]9.7 mg/dL8.6-10.3FCommunity Regional Medical CenterCarbon dioxide, total [Moles/volume] in Serum or PlasmaOrdered By: Opal Ga on 96-93-3714QU3 [Moles/Vol]30.3 mmol/L21.0-31.0[facility] HospitalChloride [Moles/volume] in Serum or PlasmaOrdered By: Opal Ga on 68-07-4018Eutbcokq [Moles/Vol]105 mmol/G15-476UnnjllkuyOhio Valley Surgical HospitalCholesterol [Mass/volume] in Serum or PlasmaOrdered By: Opal Ga on 71-02-0868Ifswseoeegi [Mass/Vol]135 mg/sQQtt112-040UbipfcoeqOhio Valley Surgical HospitalComment on above: Chol less than 200 mg/dl low riskChol 201-239 mg/dl borderline riskChol 240 mg/dl and greater high riskCholesterol in LDL Calc [Mass/Vol]Ordered By: Opal Ga on 88-74-8435Ulotolxstly in LDL [Mass/Vol]43 mg/dL0-100[facility] HospitalComment on above:LDL ATP III CLASSIFICATIONLDL less than 100 mg/dL OptimalLDL 100-129 mg/dL Near or above nbyuezoSAJ895-026 mg/dL Borderline highLDL 160-189 mg/dL HighLDL greater than 189 mg/dL Very highCholesterol in VLDL Calc [Mass/Vol]Ordered By: Opal Ga on 28-06-2158Fvhxouyghcj in VLDL [Mass/Vol]10 mg/dLOhio Valley Surgical HospitalCreatinine [Mass/volume] in Serum or PlasmaOrdered By: Opal Ga on 78-72-0897Hfsbtpewhz [Mass/Vol]1.19 mg/dL0.70-1.30[facility] HospitalEosinophils Auto (Bld) [#/Vol] Ordered By: Opal Ga on 77-33-2872Igtkrnwoaok (Bld) [#/Vol]0.5 10*3/uLHigh 0.0-0.45[facility] HospitalEosinophils/100 WBC Auto (Bld)Ordered By: Opal Ga on 45-70-4661Kzhzgqqkoqu/100 WBC (Bld)10.7 %.[facility] HospitalErythrocyte distribution width Auto (RBC) [Ratio]Ordered By: Opal Ga on 79-32-8257Kbnuvltwomm distribution width (RBC) [Ratio]13.9 %12.0-14.8 [facility] HospitalGlobulin Calc (S) [Mass/Vol]Ordered By: Opal Ga on 69-30-8096Xsylmtgn (S) [Mass/Vol]2.3 g/dLOhio Valley Surgical HospitalGlucose [Mass/volume] in Serum or PlasmaOrdered By: Opal Ga on 31-05-2774Rxpymcd [Mass/Vol]85 mg/xK02-375CyyhwrtifOhio Valley Surgical Hospital Comment on above:ADA recommended reference rangeRandom Glucose Reference Range is dependent on time and content of last meal. Glucose of more than 200 mg/dL in a nonstressed, ambulatory subject supports the diagnosisof Diabetes Mellitus. Hematocrit Auto (Bld) [Volume fraction]Ordered By: Opal Ga on 09-12-2023 Hematocrit (Bld) [Volume fraction]39.6 %38.8-50.0[facility] HospitalHemoglobin [Mass/volume] in BloodOrdered By: Opal Ga on 09-12-2023 Hemoglobin (Bld) [Mass/Vol]13.1 g/dL13.0-17.0[facility] Leukocytes [#/volume] corrected for nucleated erythrocytes in Blood by Automated counOrdered By: Opal Ga on 78-83-2013DMI corrected for nucl RBC Auto (Bld) [#/Vol]5.0 10*3/uL4.1-10.5FCommunity Regional Medical CenterLymphocytes Auto (Bld) [#/Vol]Ordered By: Opal Ga on 07-34-1310Lngthlhzzfg (Bld) [#/Vol]1.4 10*3/uL1.00-4.8[facility] HospitalLymphocytes/100 WBC Auto (Bld) Ordered By: Opal Ga on 92-57-1851Nyrbdgynmxa/100 WBC (Bld)27.8 %.[facility] HospitalH Auto (RBC) [Entitic mass]Ordered By: Opal Ga on 72-31-0277QWB (RBC) [Entitic mass]35.2 pg27.5-35.2FCommunity Regional Medical CenterMCHC Auto (RBC) [Mass/Vol]Ordered By: Opal Ga on 64-75-4080GUQC (RBC) [Mass/Vol]33.1 g/dL32.5-35.6FCommunity Regional Medical CenterMCV Auto (RBC) [Entitic vol]Ordered By: Opal Ga on 94-72-1629GNF (RBC) [Entitic vol]106.3 fL High83.5-101[facility] HospitalMonocytes Auto (Bld) [#/Vol]Ordered By: Opal Ga on 35-58-6306Ciyaikhko (Bld) [#/Vol]0.5 10*3/uL0.0-0.8[facility] HospitalMonocytes/100 WBC Auto (Bld)Ordered By: Opal Ga on 42-99-6966Cbmmbowod/100 WBC (Bld)9.7 %.[facility] Neutrophils Auto (Bld) [#/Vol]Ordered By: Opal Ga on 53-35-2797Ujsyvkbkcgn (Bld) [#/Vol]2.6 10*3/uL1.8-7.7FCommunity Regional Medical CenterNeutrophils/100 WBC Auto (Bld)Ordered By: Opal Ga on 72-46-4943Hlnyvnyqrfg/100 WBC (Bld)51.0 %.[facility] HospitalNo Panel InformationOrdered By: Opal Ga on 61-27-2847Uqolzuind GFR (CKD-EPI)> 60.0 mL/MinOhio Valley Surgical Hospital Pharmacy Creatinine Clearance (ChemN/AFCommunity Regional Medical CenterNucleated erythrocytes [Presence] in Blood by Automated countOrdered By: Opal Ga on 25-67-9072Iqwabhfcf RBC Auto Ql (Bld)0.1 /100{WBC}0-0.5FCommunity Regional Medical CenterPlatelet mean volume Auto (Bld) [Entitic vol]Ordered By: Opal Ga on 45-94-0040Voltzciw mean volume (Bld) [Entitic vol]8.6 fL6.6-10.1 [facility] HospitalPlatelets Auto (Bld) [#/Vol]Ordered By: Opal Ga on 80-17-6937Qlhixtqis (Bld) [#/Vol]163 10*3/zT496-029EbeqhamluOhio Valley Surgical HospitalPotassium [Moles/volume] in Serum or PlasmaOrdered By: Opal Ga on 54-84-1514Osskbtwip [Moles/Vol]4.0 mmol/L3.5-5.1FCommunity Regional Medical CenterProstate specific Ag [Mass/volume] in Serum or PlasmaOrdered By: Opal Ga on 92-20-0127Pvpnawrn specific Ag [Mass/Vol]2.430 ng/mL0.000-4.000[facility] HospitalComment on above:Serial tumor marker results determined by assays using different manufacturers or methods may not be comparable.[facility] laborer [place] [employer] and method:[employer] DXI, CHEMILUMINESCENT IMMUNOASSAY.Protein [Mass/volume] in Serum or PlasmaOrdered By: Opal Ga on 45-35-4106Mxxbtza [Mass/Vol]6.4 g/dL6.4-8.9[facility] HospitalRBC Auto (Bld) [#/Vol]Ordered By: Opal Ga on 62-49-4711GQS (Bld) [#/Vol]3.73 10*6/uLLow3.90-5.60[facility] Hospitalerum or plasma albumin/globulin mass ratioOrdered By: Opal Ga on 09-12-2023 Albumin/Globulin [Mass ratio]1.8 {ratio}[facility] Hospitalerum or plasma anion gap determinationOrdered By: Opal Ga on 96-71-7437Ewphb gap [Moles/Vol]9.7 mmol/L6.0-15.0[facility] Hospitalerum or plasma high density lipoprotein (HDL) cholesterol measurementOrdered By: Opal Ga on 28-19-4369Zsidypvbavm in HDL [Mass/Vol]81 mg/qF50-18FinxauofiOhio Valley Surgical HospitalComment on above:HDL CHOL ATP-III CLASSIFICATION Cardiovascular RiskHDL > or equal to 60 mg/dL LOWHDL < 40 mg/dL HIGHSerum or plasma total cholesterol/high density lipoprotein (HDL) cholesterol mass ratOrdered By: Opal Ga on 08-23-6516Soisgrbslch.total/Cholesterol in HDL [Mass ratio]1.7 {ratio} <5.0[facility] Hospitalodium [Moles/volume] in Serum or Plasma Ordered By: Opal Ga on 52-43-1141Jnrnso [Moles/Vol]141 mmol/B187-738RkooibwkhOhio Valley Surgical HospitalThyrotropin [Units/volume] in Serum or PlasmaOrdered By: Opal Ga on 10-35-6623PSB Qn0.19 m[IU]/LLow0.45-5.33[facility] HospitalThyroxine (T4) free [Mass/volume] in Serum or PlasmaOrdered By: Opal Ga on 54-41-7991Dalh T4 [Mass/Vol]1.24 ng/dLHigh0.61-1.12[facility] HospitalTriglyceride [Mass/volume] in Serum or PlasmaOrdered By: Opal Ga on 92-58-0516Ilscewnhxxah [Mass/Vol]53 mg/dL0-149Ohio [facility] HospitalComment on above:TRIG ATP III CLASSIFICATIONTRIG less than 150 mg/dL NormalTRIG 150-199 mg/dL Borderline highTRIG 200-500 mg/dL High TRIG greater than 500 mg/dL Very highStandard traceable to the Center for Disease Co nrtrol and Prevention (CDC) test method.Urea nitrogen [Mass/volume] in Serum or PlasmaOrdered By: Opal Ga on 46-18-6819Scyv nitrogen [Mass/Vol]26 mg/dLHigh 7-25[facility] HospitalWBC Auto (Bld) [#/Vol]Ordered By: Opal Ga on 81-73-7495CYS (Bld) [#/Vol]5.0 10*3/uL4.1-10.5FCommunity Regional Medical CenterAlanine aminotransferase [Enzymatic activity/volume] in Serum or Plasma Ordered By: Bhupinder Mcintyre on 29-29-1397SLS [Catalytic activity/Vol]37 U/L7-52 [facility] HospitalAspartate aminotransferase [Enzymatic activity/volume] in Serum or PlasmaOrdered By: Bhupinder Mcintyre on 75-62-2083RTL [Catalytic activity/Vol]66 U/GSwxg67-50EwbqojlqzOhio Valley Surgical HospitalCalcium [Mass/volume] in Serum or PlasmaOrdered By: Bhupinder Mcintyre on 20-55-3168Xpfwflu [Mass/Vol]9.8 mg/dL8.6-10.3FCommunity Regional Medical CenterCarbon dioxide, total [Moles/volume] in Serum or PlasmaOrdered By: Bhupinder Mcintyre on 96-36-0746DO9 [Moles/Vol]27.1 mmol/L21.0-31.0[facility] HospitalChloride [Moles/volume] in Serum or PlasmaOrdered By: Bhupinder Mcintyre on 03-54-3732Ohnwzhdk [Moles/Vol]104 mmol/U72-566UrhvhtoihOhio Valley Surgical HospitalCholesterol [Mass/volume] in Serum or PlasmaOrdered By: Bhupinder Mcintyre on 78-18-3076Olauubbwikx [Mass/Vol]152 mg/dI338-149CcdxoxgosOhio Valley Surgical HospitalComment on above:Chol less than 200 mg/dl low riskChol 201-239 mg/dl borderline riskChol 240 mg/dl and greater high riskCholesterol in LDL Calc [Mass/Vol]Ordered By: Bhupinder Mcintyre on 14-41-8928Tcpysbfuomj in LDL [Mass/Vol]49 mg/dL0-100[facility] HospitalComment on above:LDL ATP III CLASSIFICATIONLDL less than 100 mg/dL OptimalLDL 100-129 mg/dL Near or above ozkvuvxVCH929-709 mg/dL Borderline highLDL 160-189 mg/dL HighLDL greater than 189 mg/dL Very highCholesterol in VLDL Calc [Mass/Vol]Ordered By: Bhupinder Mcintyre on 83-68-6286Yiyhmilpcml in VLDL [Mass/Vol]17 mg/dLOhio Valley Surgical HospitalCreatinine [Mass/volume] in Serum or PlasmaOrdered By: Bhupinder Mcintyre on 69-37-8694Wcenpffhqi [Mass/Vol]1.14 mg/dL0.70-1.30[facility] HospitalGlucose [Mass/volume] in Serum or PlasmaOrdered By: Bhupinder Mcintyre on 40-39-2750Jsgcdns [Mass/Vol]83 mg/pR98-509 [facility] HospitalComment on above:ADA recommended reference rangeRandom Glucose Reference Range is dependent on time and content of last meal. Glucose of more than 200 mg/dL in a nonstressed, ambulatory subject supports the diagnosisof Diabetes Mellitus.Natriuretic peptide B [Mass/Vol] Ordered By: Bhupinder Mcintyre on 99-05-7325Rrzrnkbjgsp peptide B (Bld) [Mass/Vol]347.0 pg/mLHigh5-100[facility] HospitalNo Panel InformationOrdered By: Bhupinder Mcintyre on 56-79-0825Etzirfyyg GFR (CKD-EPI)> 60.0 mL/MinOhio Valley Surgical HospitalPharmacy Creatinine Clearance (ChemN/[facility] DaytonPotassium [Moles/volume] in Serum or PlasmaOrdered By: Bhupinder Mcintyre on 86-14-6449Lcgbrqtut [Moles/Vol]4.2 mmol/L3.5-5.1FUniversity Hospitals Beachwood Medical Centererum or plasma anion gap determinationOrdered By: Bhupinder Mcintyre on 07-19-2023 Anion gap [Moles/Vol]14.1 mmol/L6.0-15.0[facility] Hospitalerum or plasma high density lipoprotein (HDL) cholesterol measurementOrdered By: Bhupinder Mcintyre on 45-71-8189Xirvapiunlc in HDL [Mass/Vol]86 mg/oN83-35NsbxmockvOhio Valley Surgical HospitalComment on above:HDL CHOL ATP-III CLASSIFICATION Cardiovascular RiskHDL > or equal to 60 mg/dL LOWHDL < 40 mg/dL HIGHSerum or plasma total cholesterol/high density lipoprotein (HDL) cholesterol mass rat Ordered By: Bhupinder Mcintyre on 89-31-0101Fhlydfwxacs.total/Cholesterol in HDL [Mass ratio]1.8 {ratio}<5.0[facility] Hospitalodium [Moles/volume] in Serum or PlasmaOrdered By: Bhupinder Mcintyre on 73-07-0737Thbtte [Moles/Vol]141 mmol/L 136-145[facility] Surgical HospitalTriglyceride [Mass/volume] in Serum or PlasmaOrdered By: Bhupinder Mcintyre on 41-96-4142Wvzdvjwgjmof [Mass/Vol]85 mg/dL0-149 [facility] HospitalComment on above:TRIG ATP III CLASSIFICATIONTRIG less than 150 mg/dL NormalTRIG 150-199 mg/dL Borderline highTRIG 200-500 mg/dL High TRIG greater than 500 mg/dL Very highStandard traceable to the Center for Disease Conrtrol and Prevention (CDC) test method. Urea nitrogen [Mass/volume] in Serum or PlasmaOrdered By: Bhupinder Mcintyre on 86-86-5999Saje nitrogen [Mass/Vol]22 mg/dL7-25[facility] Alanine aminotransferase [Enzymatic activity/volume] in Serum or PlasmaOrdered By: Opal Ga on 83-64-7203BLQ [Catalytic activity/Vol]31 U/L7-52[facility] HospitalAlbumin [Mass/volume] in Serum or Plasma by Bromocresol green (BCG) dye binding methoOrdered By: Opal Ga on 58-83-4258Qgvtjty BCG dye [Mass/Vol]4.1 g/dL3.5-5.7FCommunity Regional Medical CenterAlkaline phosphatase [Enzymatic activity/volume] in Serum or PlasmaOrdered By: Opal Ga on 46-15-4178AUG [Catalytic activity/Vol]124 U/W07-843KsyilhyvkOhio Valley Surgical HospitalAspartate aminotransferase [Enzymatic activity/volume] in Serum or Plasma Ordered By: Opal Ga on 43-85-0239OFU [Catalytic activity/Vol]47 U/L13-39 [facility] HospitalBasophils Auto (Bld) [#/Vol]Ordered By: Opal Ga on 32-89-1243Rnayeixws (Bld) [#/Vol]0.0 10*3/uL0.0-0.2FCommunity Regional Medical CenterBasophils/100 WBC Auto (Bld)Ordered By: Opal Ga on 09-08-2022 Basophils/100 WBC (Bld)1.0 %.[facility] HospitalBilirubin.total [Mass/volume] in Serum or PlasmaOrdered By: Oapl Ga on 22-24-3603Umiwrvjpw [Mass/Vol]0.7 mg/dL0.3-1.0[facility] HospitalCalcium [Mass/volume] in Serum or PlasmaOrdered By: Opal Ga on 39-41-1716Ckmhwcz [Mass/Vol]9.5 mg/dL8.6-10.3FCommunity Regional Medical CenterCarbon dioxide, total [Moles/volume] in Serum or PlasmaOrdered By: Opal Ga on 42-65-1105FV9 [Moles/Vol]30.7 mmol/L21.0-31.0[facility] HospitalChloride [Moles/volume] in Serum or PlasmaOrdered By: Opal Ga on 55-19-8229Frbbtedx [Moles/Vol]107 mmol/B71-702EdmiflsuqOhio Valley Surgical HospitalCholesterol [Mass/volume] in Serum or PlasmaOrdered By: Opal Ga on 94-73-6188Fajzzxcijir [Mass/Vol]124 mg/fU761-948HrjrgpdmkOhio Valley Surgical HospitalComment on above:Chol less than 200 mg/dl low riskChol 201-239 mg/dl borderline riskChol 240 mg/dl and greater high riskCholesterol in LDL Calc [Mass/Vol]Ordered By: Opal Ga on 74-21-8048Teuszbyysku in LDL [Mass/Vol]44 mg/dL0-100[facility] HospitalComment on above:LDL ATP III CLASSIFICATIONLDL less than 100 mg/dL OptimalLDL 100-129 mg/dL Near or above rzjudxdCUH643-741 mg/dL Borderline highLDL 160-189 mg/dL HighLDL greater than 189 mg/dL Very highCholesterol in VLDL Calc [Mass/Vol]Ordered By: Opal Ga on 15-77-4866Qjfieridciu in VLDL [Mass/Vol]13 mg/dLOhio Valley Surgical HospitalCreatinine [Mass/volume] in Serum or PlasmaOrdered By: Opal Ga on 22-03-6197Wqjsrxglrc [Mass/Vol]1.18 mg/dL0.70-1.30[facility] HospitalEosinophils Auto (Bld) [#/Vol] Ordered By: Opal Ga on 74-65-4725Fkupqiqvwjd (Bld) [#/Vol]0.8 10*3/uL0.0-0.45 [facility] HospitalEosinophils/100 WBC Auto (Bld)Ordered By: Opal Ga on 91-13-7573Waiuotefjut/100 WBC (Bld)16.6 %.[facility] HospitalErythrocyte distribution width Auto (RBC) [Ratio]Ordered By: Opal Ga on 56-61-8033Guucodwdnfm distribution width (RBC) [Ratio]14.9 %12.0-14.8[facility] HospitalGlobulin Calc (S) [Mass/Vol]Ordered By: Opal Ga on 74-38-7395Jtpvchxt (S) [Mass/Vol]2.2 g/dLOhio Valley Surgical Hospital Glucose [Mass/volume] in Serum or PlasmaOrdered By: Opal Ga on 09-08-2022 Glucose [Mass/Vol]83 mg/hS59-714LhfctosazOhio Valley Surgical HospitalComment on above:ADA recommended reference rangeRandom Glucose Reference Range is dependent on time and content of last meal. Glucose of more than 200 mg/dL in a nonstressed, ambulatory subject supports the diagnosisof Diabetes Mellitus. Hematocrit Auto (Bld) [Volume fraction]Ordered By: Opal Ga on 09-08-2022 Hematocrit (Bld) [Volume fraction]37.1 %38.8-50.0[facility] HospitalHemoglobin [Mass/volume] in BloodOrdered By: Opal Ga on 09-08-2022 Hemoglobin (Bld) [Mass/Vol]12.5 g/dL13.0-17.0[facility] Leukocytes [#/volume] corrected for nucleated erythrocytes in Blood by Automated counOrdered By: Opal Ga on 91-22-3257BJH corrected for nucl RBC Auto (Bld) [#/Vol]4.7 10*3/uL4.1-10.5FCommunity Regional Medical CenterLymphocytes Auto (Bld) [#/Vol]Ordered By: Opal Ga on 13-97-3297Dlzpdvqiudh (Bld) [#/Vol]1.3 10*3/uL1.00-4.8[facility] HospitalLymphocytes/100 WBC Auto (Bld) Ordered By: Opal Ga on 66-54-9114Sqroypmxnie/100 WBC (Bld)27.0 %.[facility] HospitalMCH Auto (RBC) [Entitic mass]Ordered By: Opal Ga on 14-23-8704LNP (RBC) [Entitic mass]33.5 pg27.5-35.2FCommunity Regional Medical CenterMCHC Auto (RBC) [Mass/Vol]Ordered By: Opal Ga on 42-35-3976KXWL (RBC) [Mass/Vol]33.6 g/dL32.5-35.6FCommunity Regional Medical CenterMCV Auto (RBC) [Entitic vol]Ordered By: Opal aG on 14-13-9860JHR (RBC) [Entitic vol]99.7 fL 83.5-101[facility] HospitalMonocytes Auto (Bld) [#/Vol]Ordered By: Opal Ga on 67-31-3019Wvvogwxri (Bld) [#/Vol]0.3 10*3/uL0.0-0.8[facility] HospitalMonocytes/100 WBC Auto (Bld)Ordered By: Opal Ga on 52-36-0783Nfsfirmsq/100 WBC (Bld)7.2 %.[facility] Natriuretic peptide B [Mass/Vol]Ordered By: Bhupinder Mcintyre on 32-31-3191Yzbqqlieztf peptide B (Bld) [Mass/Vol]123.0 pg/mL5-100[facility] Neutrophils Auto (Bld) [#/Vol]Ordered By: Opal Ga on 46-96-6190Xwhxdlfxueq (Bld) [#/Vol]2.2 10*3/uL1.8-7.7FCommunity Regional Medical CenterNeutrophils/100 WBC Auto (Bld)Ordered By: Opal Ga on 25-15-1756Mqebnzesudk/100 WBC (Bld)48.2 %.[facility] HospitalNo Panel Informationon 09-08-2022 123.0\S\123.0above high puhlxzvyn8-125UF-Tfdcz [facility] DO Work Phone: Comment on above:PERFORMED BY:[facility] [place], [place] [phone] MEDICAL DIRECTORJAYY SANTA M.D.No Panel InformationOrdered By: Opal Ga on 09-08-2022 Estimated GFR (CKD-EPI)> 60.0 mL/MinOhio Valley Surgical HospitalPharmacy Creatinine Clearance (ChemN/AFCommunity Regional Medical CenterNucleated erythrocytes [Presence] in Blood by Automated countOrdered By: Opal Ga on 12-39-2644Vzgyhycjn RBC Auto Ql (Bld)0.2 /100{WBC}0-0.5FCommunity Regional Medical CenterPlatelet mean volume Auto (Bld) [Entitic vol]Ordered By: Opal Ga on 00-12-7433Xkzerrrz mean volume (Bld) [Entitic vol]8.8 fL6.6-10.1 [facility] HospitalPlatelets Auto (Bld) [#/Vol]Ordered By: Opal Ga on 36-46-9099Hvhefexqe (Bld) [#/Vol]155 10*3/aH042-613NftuorunqOhio Valley Surgical HospitalPotassium [Moles/volume] in Serum or PlasmaOrdered By: Opal Ga on 70-00-3672Snvclwync [Moles/Vol]4.0 mmol/L3.5-5.1FCommunity Regional Medical CenterProstate specific Ag [Mass/volume] in Serum or PlasmaOrdered By: Opal Ga on 03-87-8285Pvzdjmhd specific Ag [Mass/Vol]2.140 ng/mL0.000-4.000[facility] HospitalProtein [Mass/volume] in Serum or PlasmaOrdered By: Opal Ga on 29-36-2456Ughssit [Mass/Vol]6.3 g/dL6.4-8.9[facility] HospitalRBC Auto (Bld) [#/Vol]Ordered By: Opal Ga on 45-73-1603FMR (Bld) [#/Vol]3.73 10*6/uL3.90-5.60[facility] Hospitalerum or plasma albumin/globulin mass ratioOrdered By: Opal Ga on 09-08-2022 Albumin/Globulin [Mass ratio]1.9 {ratio}[facility] Hospitalerum or plasma anion gap determinationOrdered By: Opal Ga on 18-95-0069Qkytd gap [Moles/Vol]8.3 mmol/L6.0-15.0[facility] Hospitalerum or plasma high density lipoprotein (HDL) cholesterol measurementOrdered By: Opal Ga on [id number] in HDL [Mass/Vol]67 mg/kA60-88PydgmxuoqOhio Valley Surgical HospitalComment on above:HDL CHOL ATP-III CLASSIFICATION Cardiovascular RiskHDL > or equal to 60 mg/dL LOWHDL < 40 mg/dL HIGHSerum or plasma total cholesterol/high density lipoprotein (HDL) cholesterol mass ratOrdered By: Opal Ga on [id number].total/Cholesterol in HDL [Mass ratio]1.9 {ratio} <5.0[facility] Hospitalodium [Moles/volume] in Serum or Plasma Ordered By: Opal Ga on [id number] [Moles/Vol]142 mmol/F999-995QnnewsniqOhio Valley Surgical HospitalThyrotropin [Units/volume] in Serum or PlasmaOrdered By: Opal Ga on 61-88-4865PYL Qn0.46 m[IU]/L0.45-5.33[facility] Surgical HospitalThyroxine (T4) free [Mass/volume] in Serum or PlasmaOrdered By: Opal Ga on 30-29-6195Hshf T4 [Mass/Vol]1.28 ng/dL0.61-1.12[facility] HospitalTriglyceride [Mass/volume] in Serum or PlasmaOrdered By: Opal Ga on 10-40-1258Oxnpgasnvpet [Mass/Vol]66 mg/dL0-149[facility] Comment on above:TRIG ATP III CLASSIFICATIONTRIG less than 150 mg/dL NormalTRIG 150-199 mg/dL Borderline highTRIG 200-500 mg/dL High TRIG greater than 500 mg/dL Very highStandard traceable to the Center for Disease Conrtrol and Prevention (CDC) test method.Urea nitrogen [Mass/volume] in Serum or PlasmaOrdered By: Opal Ga on 61-27-9925Goky nitrogen [Mass/Vol]22 mg/dL7[facility] Surgical HospitalWBC Auto (Bld) [#/Vol]Ordered By: Opal Ga on 01-17-2869UAX (Bld) [#/Vol]4.7 10*3/uL4.1-10.5FCommunity Regional Medical CenterOffice Visit (Cardiology)on 68-82-3826Ixbdrq-up visitDiagnoses/Problems Assessed Heart failure, NYHA class 2 [...] catheterization History of Complete colonoscopy [facility] History of Epidural steroid injection [...] (more content not included)...NormalUH TouchworksTobacco Screening. on 97-67-6378Dyxndvj use status CPHSb) [facility] 250 DO Work Phone: US KIDNEYS BLADDERon 80-24-1982SW KIDNEYS BLADDEREXAM: US KIDNEYS BLADDER 05/13/2022 HISTORY: [...] Electronically authenticated by: RONALD ISRAEL Date: 2022-05-13 09:51[facility] HospitalCardiovasc Arrhythmia Resultson 93-82-9978Ayajsacnvq Arrhythmia ResultsReason For Visit Reason for Visit: Holter Monitor: TAVO is here for the application of a 24 hour Holter monitor. Ordering Physician: Enedelia Aguillon NP Diagnosis: afib NO equipment agreement signed. TAVO understands monitor is to be returned on: 03/16/2022 Monitor number [id number] applied. Holter monitor printed and placed on [...] Future Appointments Date/TimeProviderSpecialtySite 07/07/2022 09:20 Tavo Link, [id number] [facility] [address] 250 DO Signatures Electronically signed by : Marv Urena MD; Mar 19 2022 6:25PM EST (Author) Electronically signed by : Enedelia Gomez APRN-TRUCK LOADER AND UNLOADER; Mar 22 2022 9:37AM EST (Author)NormalUH TouchworksCreatinine and Glomerular filtration rate.predicted panel (S/P/Bld)Ordered By: Enedelia Gomez on 56-54-0783Zpnhlpmbct [Mass/Vol]1.28 mg/dL0.64-1.27[facility] HospitalEstimated glomerular filtration rate (GFR) non- AmericanOrdered By: Enedelia Gomez on 65-76-2895FPT/1.73 sq M.predicted among non-blacks MDRD (S/P/Bld) [Vol rate/Area]54 mL/MinOhio Valley Surgical HospitalNo Panel InformationOrdered By: Enedelia Gomez on 03-11-2022 Estimated GFR ()> 60 mL/MinOhio Valley Surgical Hospital Comment on above:GFR estimated reference range: According to KDOQI guidelines, <60 ml/min/1.73m2 is sufficient todiagnose a patient with chronic kidney disease.Pharmacy Creatinine Clearance (ChemN/[facility] No Panel Informationon .1\S\10.9Ryarke3.0-15.0MP-[facility] [place] 250 DO Work Phone: [phone]\S\9.3Wxutbg3.2-10.2MP-[facility] 250 DO Work Phone: Comment on above:PERFORMED BY:[place] [address] [place], [place] [phone] MEDICAL DIRECTORJAYY SANTA M.D.30.5\S\30.5above high gybkamsee68.0-30.0MP-[facility] 250 DO Work Phone: [phone]\S\378Wqlntm60-955AG-Mmyxd [place] [facility] 250 DO Work Phone: [phone]\S\3.9Qqgsph6.5-5.1MP-[facility] 250 DO Work Phone: [phone]\S\293Oobadj200-939EM-Eztsf [place] [facility] 250 DO Work Phone: > 60NormalMP-[facility] 250 DO Work Phone: Comment on above:GFR estimated reference range: According to KDOQI guidelines, <60 ml/min/1.73m2 is sufficient todiagnose a patient with chronic kidney disease.54\S\54NormalMP-[facility] 250 DO Work Phone: [phone]\S\1.28above high threshold0.64-1.27MP-[facility] 250 DO Work Phone: [phone]\S\41Nrnyne2-28LS-Wxvdd [place] [facility] 250 DO Work Phone: [phone]\S\45Jrkver43-832CZ-Gvoqt [place] [facility] 250 DO Work Phone: Comment on above:Random Glucose Reference Range is dependent on time and content of last meal. Glucose of more than 200 mg/dL in a nonstressed, ambulatory subject supports the diagnosis of Diabetes Mellitus. ADA recommended reference rangeSerum or plasma anion gap determinationOrdered By: Enedelia Gomez on 57-24-2316Iwahy gap [Moles/Vol]10.1 mmol/L6.0-15.0[facility] Valley Hospitalerum or plasma calcium measurement (mass/volume)Ordered By: Enedelia Gomez on 80-10-7425Bdgosgx [Mass/Vol]9.9 mg/dL8.2-10.2FUniversity Hospitals Beachwood Medical Centererum or plasma chloride measurement (moles/volume) Ordered By: Enedelia Gomez on 43-30-5040Zltchswm [Moles/Vol]100 mmol/L95-114 [facility] Valley Hospitalerum or plasma glucose measurement (mass/volume)Ordered By: Enedelia Gomez on 59-46-2680Ogzcjii [Mass/Vol]96 mg/dL 70-100[facility] HospitalComment on above:ADA recommended reference rangeRandom Glucose Reference Range is dependent on time and content of last meal. Glucose of more than 200 mg/dL in a nonstressed, ambulatory subject supports the diagnosisof Diabetes Mellitus.Serum or plasma potassium measurement (moles/volume)Ordered By: Enedelia Gomez on 08-34-4124Sqvckplns [Moles/Vol]3.6 mmol/L3.5-5.1FUniversity Hospitals Beachwood Medical Centererum or plasma sodium measurement (moles/volume)Ordered By: Enedelia Gomez on 93-88-7988Ydzxro [Moles/Vol]137 mmol/Y404-752EuynyhuluBlanchard Valley Health System Blanchard Valley Hospitalerum or plasma total carbon dioxide measurement (moles/volume)Ordered By: Enedelia Gomez on 06-51-9682GQ1 [Moles/Vol]30.5 mmol/L22.0-30.0[facility] Serum or plasma urea nitrogen measurement (mass/volume)Ordered By: Enedelia Gomez on 44-54-4711Xicd nitrogen [Mass/Vol]17 mg/dL9-23[facility] HospitalOffice Visit (Cardiology)on 87-95-4109Cjmsba-up visitDiagnoses/Problems Assessed Chronic atrial fibrillation (427.31) (I48.20) [...] in adult Healthy Weight Tips; Status:Complete; Done: [id number] Patient Instructions Please bring all medicines, vitamins, [...] July 2021. [facility] 2022 [facility], noted bradycardia with3.0-second [...] very rare postural orthostatic hypotension in the top stop attacher. He denies any palpitations or fast heartbeats. [...] catheterization History of Complete colonoscopy [facility] History of Epidural steroid injection [...] (more content not included)... NormalUH TouchworksTobacco Screening.on 03-09-4036Supzp depression screening assessmentNoWest [facility] [employer] 250 DO Work Phone: Fall risk assessmentb) One or more falls in the last yearWest [facility] [employer] 250 DO Work Phone: Tobacco use status CPHSb) [facility] [employer] 250 DO Work Phone: Basophils Auto (Bld) [#/Vol]Ordered By: Raji Ennis on 43-39-6660Nwhklzlsy (Bld) [#/Vol]0.1 10*3/uL0.0-0.2FCommunity Regional Medical CenterBasophils/100 WBC Auto (Bld)Ordered By: Raji Ennis on 01-16-2022 Basophils/100 WBC (Bld)1.0 %.[facility] HospitalCreatinine and Glomerular filtration rate.predicted panel (S/P/Bld)Ordered By: Raji Ennis on 09-33-4689Iywraxgzux [Mass/Vol]1.56 mg/dL0.64-1.27[facility] HospitalEosinophils Auto (Bld) [#/Vol]Ordered By: Raji Ennis on 01-16-2022 Eosinophils (Bld) [#/Vol]0.4 10*3/uL0.0-0.45[facility] Eosinophils/100 WBC Auto (Bld)Ordered By: Raji Ennis on 01-16-2022 Eosinophils/100 WBC (Bld)5.6 %.[facility] HospitalErythrocyte distribution width Auto (RBC) [Ratio]Ordered By: Raji Ennis on 01-16-2022 Erythrocyte distribution width (RBC) [Ratio]15.3 %12.0-14.8[facility] HospitalEstimated glomerular filtration rate (GFR) non- Ordered By: Raji Ennis on 89-26-2721KUT/1.73 sq M.predicted among non-blacks MDRD (S/P/Bld) [Vol rate/Area]43 mL/MinOhio Valley Surgical Hospital Hematocrit Auto (Bld) [Volume fraction]Ordered By: Raji Ennis on 01-16-2022 Hematocrit (Bld) [Volume fraction]35.4 %38.8-50.0[facility] HospitalHemoglobin [Mass/volume] in BloodOrdered By: Raji Ennis on 01-16-2022 Hemoglobin (Bld) [Mass/Vol]11.8 g/dL13.0-17.0[facility] Laboratory - Hematology and Cell countsOrdered By: Raji Ennis on 01-16-2022 Nucleated RBC/100 WBC (Bld) [Ratio]0.0 %0-0.5FCommunity Regional Medical Center Leukocytes [#/volume] in Blood by Automated countOrdered By: Raji Ennis on 50-67-9726GIK (Bld) [#/Vol]6.5 10*3/uL4.5-11.0[facility] Lymphocytes Auto (Bld) [#/Vol]Ordered By: Raji Ennis on 08-56-0185Kvniaumqlzj (Bld) [#/Vol]1.1 10*3/uL1.00-4.8[facility] HospitalLymphocytes/100 WBC Auto (Bld)Ordered By: Raji Ennis on 65-30-0586Zlgwrhjmdtv/100 WBC (Bld) 17.1 %.[facility] Auto (RBC) [Entitic mass]Ordered By: Raji Ennis on 57-46-4199JAN (RBC) [Entitic mass]33.2 pg27.5-35.2FSelect Medical Specialty Hospital [facility] North Auto (RBC) [Mass/Vol]Ordered By: Raji Ennis on 80-24-8733HVWC (RBC) [Mass/Vol]33.3 g/dL32.5-35.6FCommunity Regional Medical CenterMCV Auto (RBC) [Entitic vol]Ordered By: Raji Raymon on 97-10-7117JQS (RBC) [Entitic vol]100.0 fL83.5-101[facility] HospitalMonocytes Auto (Bld) [#/Vol]Ordered By: Raji Raymon on 34-50-0476Qdxynytvl (Bld) [#/Vol] 0.8 10*3/uL0.0-0.8[facility] HospitalMonocytes/100 WBC Auto (Bld) Ordered By: Raji Raymon on 17-41-1042Ccnhfcnpf/100 WBC (Bld)11.9 %.[facility] HospitalNeutrophils Auto (Bld) [#/Vol]Ordered By: Raji Raymon on 15-27-4509Tlvgrzowlyw (Bld) [#/Vol]4.2 10*3/uL1.8-7.7FCommunity Regional Medical CenterNeutrophils/100 WBC Auto (Bld)Ordered By: Raji Raymon on 01-16-2022 Neutrophils/100 WBC (Bld)64.4 %.[facility] HospitalNo Panel InformationOrdered By: Raji Raymon on 36-92-0866Pluzycjtj GFR ()52 mL/MinOhio Valley Surgical HospitalComment on above:GFR estimated reference range: According to KDOQI guidelines, <60 ml/min/1.73m2 is sufficient todiagnose a patient with chronic kidney disease.Pharmacy Creatinine Clearance (Chem39.79[facility] HospitalPlatelet mean volume Auto (Bld) [Entitic vol]Ordered By: Raji Raymon on 34-71-8805Uomfzyqs mean volume (Bld) [Entitic vol]9.1 fL6.6-10.1FCommunity Regional Medical CenterPlatelets Auto (Bld) [#/Vol]Ordered By: Raji Raymon on 70-74-9860Aabilvawr (Bld) [#/Vol]195 10*3/pS299-544LsxulxbyjOhio Valley Surgical HospitalRBC Auto (Bld) [#/Vol]Ordered By: Raji Ennis on 89-61-1055APH (Bld) [#/Vol]3.54 10*6/uL3.90-5.60[facility] Hospitalerum or plasma anion gap determinationOrdered By: Raji Ennis on 92-35-0941Acpqj gap [Moles/Vol]11.4 mmol/L6.0-15.0[facility] Hospitalerum or plasma calcium measurement (mass/volume)Ordered By: Raji Raymon on 22-14-6318Xmencju [Mass/Vol]9.0 mg/dL8.2-10.2FUniversity Hospitals Beachwood Medical Centererum or plasma chloride measurement (moles/volume)Ordered By: RajiStaufferam 02-21-1933Ygragwok [Moles/Vol]95 mmol/W74-896SfccstsdhBlanchard Valley Health System Blanchard Valley Hospitalerum or plasma glucose measurement (mass/volume)Ordered By: Raji Raymon 24-91-9577Qitfmfg [Mass/Vol]87 mg/bK73-767AziaiqbywOhio Valley Surgical HospitalComment on above:ADA recommended reference rangeRandom Glucose Reference Range is dependent on time and content of last meal. Glucose of more than 200 mg/dL in a nonstressed, ambulatory subject supports the diagnosisof Diabetes Mellitus.Serum or plasma potassium measurement (moles/volume)Ordered By: Raji Ennis 84-07-0515Mffxmahpc [Moles/Vol]4.0 mmol/L3.5-5.1FUniversity Hospitals Beachwood Medical Centererum or plasma sodium measurement (moles/volume)Ordered By: Raji Ennis 65-41-9188Xosgrq [Moles/Vol]132 mmol/L616-553WpzigljkzBlanchard Valley Health System Blanchard Valley Hospitalerum or plasma total carbon dioxide measurement (moles/volume) Ordered By: Raji Arringtonam 67-86-6830BY9 [Moles/Vol]29.6 mmol/L22.0-30.0 [facility] Hospitalerum or plasma urea nitrogen measurement (mass/volume)Ordered By: Raji Ennis 19-76-0511Iwkt nitrogen [Mass/Vol]29 mg/dL9-23[facility] HospitalUrine culture routineOrdered By: Frankie Reynolds on 09-20-6701Yuqhydjr identified Cx Nom (U)No Growth 2 Days [facility] HospitalAutomated erythrocytes count in urine sediment (number/area)Ordered By: Frankie Reynolds on 82-37-2573CHD Auto (Urine sed) [#/Area]50-100 [HPF]0-4FCommunity Regional Medical CenterAutomated leukocytes count in urine sediment (number/area)Ordered By: rFankie Reynolds on 56-55-3468WJK Auto (Urine sed) [#/Area]5-9 [HPF]0-4FCommunity Regional Medical CenterBilirubin Test strip Ql (U)Ordered By: Frankie Reynolds on 96-39-8154Qtlflvtfp Ql (U)Negative NegativeOhio Valley Surgical HospitalColor Auto (U)Ordered By: Frankie Reynolds on 65-62-3512Ozcoc (U)YellowYellowOhio Valley Surgical HospitalKetones Auto test strip (U) [Mass/Vol]Ordered By: Frankie Reynolds on 97-24-3609Bdmyotp (U) [Mass/Vol]NegativeNegativeOhio Valley Surgical HospitalLaboratory - UrinalysisOrdered By: Frankie Reynolds on 23-77-7525Xlhraty casts LM Ql (Urine sed) 0-8 [LPF]0-8[facility] HospitalNitrite Test strip Ql (U)Ordered By: Frankie Reynolds on 48-68-9395Uvrpxku Ql (U)NegativeNegOhioHealth Grady Memorial HospitalProtein Auto test strip (U) [Mass/Vol]Ordered By: Frankie Reynolds on 74-59-4172Swonyxt (U) [Mass/Vol]30 mg/dLNegativeBlanchard Valley Health System Blanchard Valley Hospitalerum or plasma uric acid measurement (mass/volume)Ordered By: Frankie Reynolds on 54-99-9650Puqnf [Mass/Vol]4.7 mg/dL2.6-7.2FUniversity Hospitals Beachwood Medical Centererum or plasma vancomycin measurement (mass/volume)Ordered By: Raji Ennis on 48-37-7831Lwmdgvimsh [Mass/Vol]9.7 ug/mL5.0-20.0[facility] HospitalComment on above:Last dose: -Specific gravity Auto test strip (U) [Rel density]Ordered By: Frankie Reynolds on 77-97-7578Ycpwtrli gravity (U) [Rel density]1.0121.001-1.030[facility] Valley Hospitalquamous epithelial cells detection in urine sediment by light microscopyOrdered By: Frankie Reynolds on 42-79-0777Dusyejdusk cells.squamous LM Ql (Urine sed)0-1 [HPF]0-2FCommunity Regional Medical CenterUrine bacteria detection by automated methodOrdered By: Fraknie Reynolds on 65-55-2217Fftxtpgm Auto Ql (U)None seenNone SeenOhio Valley Surgical HospitalUrine clarity by refractometry automatedOrdered By: Frankie Reynolds on 31-45-9309Bmmggzu Refractometry automated (U)ClearClear [facility] HospitalUrine culture routineOrdered By: Frankie Reynolds on 09-40-6649Tgayllgp identified Cx Nom (U)No Growth 2 DaysOhio Valley Surgical HospitalUrine glucose measurement by automated test strip (mass/volume) Ordered By: Frankie Reynolds on 84-91-4109Okevqvn Auto test strip (U) [Mass/Vol] Normal mg/dLNoMercy Health Defiance HospitalUrine hemoglobin detection by automated test stripOrdered By: Frankie Reynolds on 28-02-4232Pkzmhayylu Auto test strip Ql (U)3+NegativeOhio Valley Surgical HospitalUrine leukocyte esterase detection by automated test stripOrdered By: Frankie Reynolds on 01-13-2022 Leukocyte esterase Auto test strip Ql (U)2+NegativeOhio Valley Surgical HospitalUrobilinogen Auto test strip (U) [Mass/Vol]Ordered By: Frankie Reynolds on 37-21-0733Ttficmpihpma (U) [Mass/Vol]Normal mg/dLNoMercy Health Defiance HospitalpH Auto test strip (U)Ordered By: Frankie Reynolds on 54-70-7832gT (U)5.5 [pH]5.0-9.0[facility] HospitalBacterial blood culture Ordered By: Raji Ennis on 91-49-0700Cofhpgwr identified Cx Nom (Bld)NO GROWTH 5 DAYSOhio Valley Surgical HospitalC reactive protein [Mass/volume] in Serum or PlasmaOrdered By: Raji Ennis on 17-49-7813CNO [Mass/Vol]8.4 mg/dL0.0-1.0 [facility] HospitalAlbumin [Mass/volume] in Serum or PlasmaOrdered By: Vikas Mane on 58-42-5648Wsvfrwb [Mass/Vol]2.9 g/dL2.9-4.4FCommunity Regional Medical CenterIgA [Mass/volume] in Serum or PlasmaOrdered By: Vikas Maen on 26-32-1865LaL [Mass/Vol]171 mg/yL15-924XujrghnsmOhio Valley Surgical HospitalIgG [Mass/volume] in Serum or PlasmaOrdered By: Vikas Mane on 01-11-2022 IgG [Mass/Vol]816 mg/qI809-0690WjdiwblycOhio Valley Surgical HospitalIgM [Mass/volume] in Serum or PlasmaOrdered By: Vikas Mane on 98-51-1459XtB [Mass/Vol]105 mg/wA75-308YoszxxdztOhio Valley Surgical HospitalComment on above: Performed at: [facility] [id number] Director: Patrick Ortiz PhD, Phone: [phone] Panel InformationOrdered By: Vikas Mane on 93-43-0482Quawhtr Electrophoresis M-SpikeNot observed g/dLNot ObservedOhio Valley Surgical HospitalProtein Electrophoresis NoteSee comment.[facility] HospitalComment on above:Protein electrophoresis scan will follow via computer,mail, or managed care specialist delivery.Performed at: [facility] [id number] Director: Patrick Ortiz PhD, Phone: [phone] ImmunofixationSee comment.[facility] HospitalComment on above:No monoclonality detected.Protein [Mass/volume] in Serum or PlasmaOrdered By: Vikas Mane on 08-14-0543Eapwsvm [Mass/Vol]5.3 g/dL6.0-8.5FUniversity Hospitals Beachwood Medical Centererum globulin measurement (mass/volume)Ordered By: Vikas Mane on 91-98-2537Twvrcrmx (S) [Mass/Vol]2.4 g/dL2.2-3.9[facility] Hospitalerum or plasma albumin/globulin mass ratioOrdered By: Vikas Mane on 08-01-2677Qisyznc/Globulin [Mass ratio]1.2 {ratio}0.7-1.7FUniversity Hospitals Beachwood Medical Centererum or plasma alpha 1 globulin measurement by electrophoresis (mass/volume)Ordered By: Vikas Mane on 53-99-3671Sqekz 1 globulin Elph [Mass/Vol]0.4 g/dL0.0-0.4FUniversity Hospitals Beachwood Medical Centererum or plasma alpha 2 globulin measurement by electrophoresis (mass/volume)Ordered By: Vikas Mane on 94-25-3655Fauwc 2 globulin Elph [Mass/Vol]0.7 g/dL0.4-1.0[facility] Hospitalerum or plasma beta globulin measurement by electrophoresis (mass/volume)Ordered By: Vikas Mane on 09-42-9499Kcpa globulin Elph [Mass/Vol] 0.6 g/dL0.7-1.3FUniversity Hospitals Beachwood Medical Centererum or plasma gamma globulin measurement by electrophoresis (mass/volume)Ordered By: Vikas Mane on 88-07-5839Vmicp globulin Elph [Mass/Vol]0.8 g/dL0.4-1.8[facility] HospitalFolate [Mass/volume] in Serum or PlasmaOrdered By: Dharmesh Zavala on 90-61-8512Auomme [Mass/Vol]8.8 ng/mL>5.9[facility] HospitalComment on above:Folate reference range: >5.9 ng/mlThe WHO technical consultation on folate and vitamin o86kmzxxpqcqnut has determined that folate concentrations lessthan 4 ng/ml are considered deficient.Glucose mean value [Mass/volume] in Blood Estimated from glycated hemoglobinOrdered By: Dharmesh Zavala on 68-41-3730Ucebtem glucose Estimated from glycated hemoglobin (Bld) [Mass/Vol]114 mg/dLOhio Valley Surgical HospitalHemoglobin A1c percentage Ordered By: Dharmesh Zavala on 97-58-3427XrD3n (Bld) [Mass fraction]5.6 % 4.3-5.6FCommunity Regional Medical CenterComment on above:Increased risk for diabetes: 5.7 - 6.4diabetes: >6.4glycemic control for adults with diabetes: &l t;7.0Iron [Mass/volume] in Serum or PlasmaOrdered By: Dharmesh Zavala on 53-99-5664Sbmh [Mass/Vol]13 ug/bN07-634UjcnueourOhio Valley Surgical Hospital Laboratory - Chemistry and Chemistry - challengeOrdered By: Dharmesh Zavala on 25-82-4185Mzudlcugp (Vitamin B12) [Mass/Vol]458 pg/oP616-207PmhbxftkwOhio Valley Surgical HospitalMagnesium [Mass/Vol]1.9 mg/dL1.6-2.6FCommunity Regional Medical CenterNatriuretic peptide B (Bld) [Mass/Vol]679.0 pg/mL5-100[facility] HospitalTS DL <= 0.005 mIU/L QnOrdered By: Dharmesh Zavala on 35-72-5726TAJ Qn3.99 m[IU]/L0.45-5.33[facility] Troponin I.cardiac [Mass/volume] in Serum or Plasma by High sensitivity method Ordered By: Dharmesh Zavala on 15-20-3805Tncjpniu I.cardiac High sensitivity method [Mass/Vol]110 pg/mL0-20[facility] Comment on above:Results calledat 0808 on 01/10/22Activated partial thromboplastin time (aPTT) in platelet poor plasma by coagulation aOrdered By: Frankie Paiz on 01-21-9035qZDA Coag (PPP) [Time]39.1 s25.1-36.5FCommunity Regional Medical CenterAutomated erythrocytes count in urine sediment (number/area)Ordered By: Frankie Paiz on 87-63-2225XZN Auto (Urine sed) [#/Area]0-1 [HPF]0-4FCommunity Regional Medical CenterAutomated leukocytes count in urine sediment (number/area)Ordered By: Frankie Paiz on 86-31-8969ZCW Auto (Urine sed) [#/Area]5-9 [HPF]0-4FCommunity Regional Medical CenterBasophils Auto (Bld) [#/Vol]Ordered By: Frankie Paiz on 17-18-4523Tiqrwdeuf (Bld) [#/Vol]0.1 10*3/uL0.0-0.2FCommunity Regional Medical CenterBasophils/100 WBC Auto (Bld) Ordered By: Frankie Paiz on 51-12-3467Yfcxkzcbo/100 WBC (Bld)1.0 %.[facility] HospitalBilirubin Test strip Ql (U)Ordered By: Frankie Paiz on 70-22-9952Htujounvk Ql (U)NegativeNegOhioHealth Grady Memorial Hospital COVID-19 Positive/NegativeOrdered By: Frankie Paiz on 10-39-7973YCVL-CoV-2 (COVID-19) N gene SMITHA+probe Ql (Resp)NegativeNegOhioHealth Grady Memorial HospitalComment on above:Testing for SARS-CoV-2 by RT-PCRThis test was developed and its performance characteristics determined by [employer] (Rapid Pathogen Screening) and validated at the [facility]. This test has not been FDA [...] sooner. COVID-19 SOFIAOrdered By: Frankie Paiz on 31-79-7809ZOPD-CoV+SARS-CoV-2 (COVID-19) Ag IA.rapid Ql (Resp)NegativeNegOhioHealth Grady Memorial HospitalComment on above:This is a duplicate Veronica SARS Antigen (MADHAVI) result to be used for statistical tracking purpose only.Color Auto (U)Ordered By: Frankie Paiz on 80-85-0364Qsjii (U)YellowYellowOhio Valley Surgical Hospital Creatine kinase [Enzymatic activity/volume] in Serum or PlasmaOrdered By: Frankie Paiz on 96-96-0696VI [Catalytic activity/Vol]231 U/L12-439WlgzhknqoOhio Valley Surgical HospitalCreatinine and Glomerular filtration rate.predicted panel (S/P/Bld)Ordered By: Frankie Paiz on 11-43-6016Pycwyqbtla [Mass/Vol]1.62 mg/dL 0.64-1.27[facility] HospitalEosinophils Auto (Bld) [#/Vol]Ordered By: Frankie Paiz on 98-73-9558Qzvuvybbcwm (Bld) [#/Vol]0.0 10*3/uL0.0-0.45 [facility] HospitalEosinophils/100 WBC Auto (Bld)Ordered By: Frankie Paiz on 37-13-1151Vsmbpwcvqgl/100 WBC (Bld)0.1 %.[facility] HospitalErythrocyte distribution width Auto (RBC) [Ratio]Ordered By: Frankie Paiz on 31-26-2405Ugplvbnaipy distribution width (RBC) [Ratio]15.9 % 12.0-14.8[facility] HospitalEstimated glomerular filtration rate (GFR) non- AmericanOrdered By: Frankie Paiz on 15-01-2111MII/1.73 sq M.predicted among non-blacks MDRD (S/P/Bld) [Vol rate/Area]41 mL/MinOhio Valley Surgical HospitalHematocrit Auto (Bld) [Volume fraction]Ordered By: Frankie Paiz on 36-66-2715Tbtlqprftm (Bld) [Volume fraction]36.5 %38.8-50.0 [facility] HospitalHemoglobin [Mass/volume] in BloodOrdered By: Frankie Paiz on 83-48-7237Xqiamlkkcn (Bld) [Mass/Vol]12.1 g/dL13.0-17.0 [facility] HospitalKetones Auto test strip (U) [Mass/Vol]Ordered By: Frankie Paiz on 85-41-3756Ngulice (U) [Mass/Vol]TraceNegativeOhio Valley Surgical HospitalLaboratory - Chemistry and Chemistry - challengeOrdered By: Frankie Paiz on 46-47-9782Cqesrayadqb peptide B (Bld) [Mass/Vol]1810.0 pg/mL5-100[facility] HospitalLaboratory - CoagulationOrdered By: Frankie Paiz on 69-26-7653GY Coag (PPP) [Time]28.4 s9.0-12.9[facility] HospitalLaboratory - Hematology and Cell countsOrdered By: Frankie Paiz on 98-48-7578Fykzkijlb RBC/100 WBC (Bld) [Ratio]0.1 %0-0.5FCommunity Regional Medical CenterLaboratory - UrinalysisOrdered By: Frankie Paiz on 01-09-2022 Hyaline casts LM Ql (Urine sed)0-8 [LPF]0-8[facility] Leukocytes [#/volume] in Blood by Automated countOrdered By: Frankie Paiz on 69-35-2791TXO (Bld) [#/Vol]6.0 10*3/uL4.5-11.0[facility] Lymphocytes Auto (Bld) [#/Vol]Ordered By: Frankie Paiz on 01-09-2022 Lymphocytes (Bld) [#/Vol]0.8 10*3/uL1.00-4.8[facility] Lymphocytes/100 WBC Auto (Bld)Ordered By: Frankie Paiz on 01-09-2022 Lymphocytes/100 WBC (Bld)13.5 %.[facility] Auto (RBC) [Entitic mass]Ordered By: Frankie Paiz on 58-17-6632MUG (RBC) [Entitic mass] 33.7 pg27.5-35.2FCommunity Regional Medical CenterMCHC Auto (RBC) [Mass/Vol] Ordered By: Frankie Paiz on 30-15-1546XBJF (RBC) [Mass/Vol]33.2 g/dL32.5-35.6 [facility] HospitalMCV Auto (RBC) [Entitic vol]Ordered By: Frankie Paiz on 54-16-2198LLA (RBC) [Entitic vol]101.5 fL83.5-101[facility] HospitalMonocytes Auto (Bld) [#/Vol]Ordered By: Frankie Paiz on 64-24-5934Igtfiutri (Bld) [#/Vol]0.9 10*3/uL0.0-0.8[facility] HospitalMonocytes/100 WBC Auto (Bld)Ordered By: Frankie Paiz on 01-09-2022 Monocytes/100 WBC (Bld)14.2 %.[facility] HospitalNeutrophils Auto (Bld) [#/Vol]Ordered By: Frankie Paiz on 74-70-2340Jjaejijttka (Bld) [#/Vol] 4.3 10*3/uL1.8-7.7FCommunity Regional Medical CenterNeutrophils/100 WBC Auto (Bld)Ordered By: Frankie Paiz on 75-36-9350Gguwifjmyxt/100 WBC (Bld)71.2 %. [facility] HospitalNitrite Test strip Ql (U)Ordered By: Frankie Paiz on 89-31-4689Xpeudfw Ql (U)NegativeNegativeOhio Valley Surgical HospitalNo Panel InformationOrdered By: Frankie Paiz on 63-25-1721JOXA Antigen (LFIA)[facility] HospitalEstimated GFR ()50 mL/Min [facility] HospitalComment on above:GFR estimated reference range: According to KDOQI guidelines, <60 ml/min/1.73m2 is sufficient todiagnose a patient with chronic kidney disease.Pharmacy Creatinine Clearance (Chem39.44 [facility] HospitalARS Antigen (LFIA)[facility] HospitalPlatelet mean volume Auto (Bld) [Entitic vol]Ordered By: Frankie Paiz on 15-35-7093Pvgrkflt mean volume (Bld) [Entitic vol]8.3 fL6.6-10.1FCommunity Regional Medical CenterPlatelet poor plasma international normalized ratio (INR) by coagulation assay (relatOrdered By: Frankie Paiz on 86-37-2916VAO Coag (PPP) [Relative time]2.5 {INR}[facility] HospitalComment on above: INR Therapeutic Range A) [...] Auto (Bld) [#/Vol]Ordered By: Frankie Paiz on 89-79-4804Fudjpmoga (Bld) [#/Vol]162 10*3/rL405-694WnosqsioeOhio Valley Surgical HospitalProtein Auto test strip (U) [Mass/Vol]Ordered By: Frankie Paiz on 26-87-5706Gbyetle (U) [Mass/Vol]Trace mg/dLNegativeOhio Valley Surgical HospitalRBC Auto (Bld) [#/Vol]Ordered By: Frankie Paiz on 36-16-5425BUQ (Bld) [#/Vol]3.59 10*6/uL 3.90-5.60[facility] Hospitalerum or plasma anion gap determinationOrdered By: Frankie Paiz on 57-25-0642Xvsdr gap [Moles/Vol]14.9 mmol/L6.0-15.0[facility] Hospitalerum or plasma calcium measurement (mass/volume)Ordered By: Frankie Paiz on 97-98-9939Eexmcoq [Mass/Vol]9.2 mg/dL8.2-10.2FUniversity Hospitals Beachwood Medical Centererum or plasma chloride measurement (moles/volume)Ordered By: Frankie Paiz on 01-09-2022 Chloride [Moles/Vol]100 mmol/I65-469GqrhlxjcsBlanchard Valley Health System Blanchard Valley Hospitalerum or plasma creatine kinase MB (CKMB)/total creatine kinase (CK) ratio by calcula Ordered By: Frankie Paiz on 11-53-3699PU.MB Calc [Catalytic fraction]2.3 % 0.00-2.50[facility] Valley Hospitalerum or plasma creatine kinase MB measurement (mass/volume)Ordered By: Frankie Paiz on 89-35-0431MI.MB [Mass/Vol]5.4 ng/mL0.6-6.3FUniversity Hospitals Beachwood Medical Centererum or plasma glucose measurement (mass/volume)Ordered By: Frankie Paiz on 25-21-8546Ibhxqyt [Mass/Vol]99 mg/dR53-059KkymtvvbsOhio Valley Surgical HospitalComment on above:ADA recommended reference rangeRandom Glucose Reference Range is dependent on time and content of last meal. Glucose of more than 200 mg/dL in a nonstressed, ambulatory subject supports the diagnosisof Diabetes Mellitus.Serum or plasma potassium measurement (moles/volume)Ordered By: Frankie Paiz on 01-09-2022 Potassium [Moles/Vol]4.1 mmol/L3.5-5.1FUniversity Hospitals Beachwood Medical Centererum or plasma sodium measurement (moles/volume)Ordered By: Frankie Paiz on 01-09-2022 Sodium [Moles/Vol]136 mmol/D776-574KhtxmqacrBlanchard Valley Health System Blanchard Valley Hospitalerum or plasma total carbon dioxide measurement (moles/volume)Ordered By: Frankie Paiz on 10-04-7281RB9 [Moles/Vol]25.2 mmol/L22.0-30.0[facility] Hospitalerum or plasma urea nitrogen measurement (mass/volume)Ordered By: Frankie Paiz on 10-26-9690Exqp nitrogen [Mass/Vol]21 mg/dL9-23[facility] Valley Hospitalpecific gravity Auto test strip (U) [Rel density]Ordered By: Frankie Paiz on 47-17-2952Itjyvajv gravity (U) [Rel density]1.0181.001-1.030 [facility] Valley Hospitalquamous epithelial cells detection in urine sediment by light microscopyOrdered By: Frankie Paiz on 33-13-2375Jktdhvesrs cells.squamous LM Ql (Urine sed)0-1 [HPF]0-2FCommunity Regional Medical Center Troponin I.cardiac [Mass/volume] in Serum or Plasma by High sensitivity method Ordered By: Frankie Paiz on 12-80-7037Hsqgxhtf I.cardiac High sensitivity method [Mass/Vol]101 pg/mL0-20[facility] HospitalComment on above: Results calledat 1208 on 01/09/22Urine bacteria detection by automated method Ordered By: Frankie Paiz on 70-67-3758Cvbqziwn Auto Ql (U)None seenNone Seen [facility] HospitalUrine clarity by refractometry automatedOrdered By: Frankie Paiz on 70-35-3378Zufbizx Refractometry automated (U)CloudyClear [facility] HospitalUrine glucose measurement by automated test strip (mass/volume)Ordered By: Frankie Paiz on 74-13-1329Mncpqda Auto test strip (U) [Mass/Vol]Normal mg/dLNoMercy Health Defiance HospitalUrine hemoglobin detection by automated test stripOrdered By: Frankie Paiz on 96-36-1902Kzunmxriof Auto test strip Ql (U)NegativeNegativeOhio Valley Surgical HospitalUrine leukocyte esterase detection by automated test stripOrdered By: Frankie Paiz on 47-94-2072Whxcmuzuj esterase Auto test strip Ql (U)2+ NegativeOhio Valley Surgical HospitalUrobilinogen Auto test strip (U) [Mass/Vol]Ordered By: Frankie Paiz on 22-75-0991Wjnfamllxtqv (U) [Mass/Vol] Normal mg/dLNormalOhio Valley Surgical HospitalYeast detection in urine sediment by light microscopyOrdered By: Frankie Paiz on 11-89-8927Agkgg LM Ql (Urine sed)None seen [HPF]None SeenOhio Valley Surgical HospitalpH Auto test strip (U)Ordered By: Frankie Paiz on 13-17-3932oM (U)5.5 [pH]5.0-9.0[facility] HospitalBody fluid albumin measurement (mass/volume)Ordered By: Opal Ga on 56-02-7363Empojzg (Body fld) [Mass/Vol]3.5 g/dL3.2-5.5FCommunity Regional Medical CenterCreatinine and Glomerular filtration rate.predicted panel (S/P/Bld)Ordered By: Opal Ga on 35-20-3863Syzhhjiimg [Mass/Vol]1.29 mg/dL 0.64-1.27[facility] HospitalEstimated glomerular filtration rate (GFR) non- AmericanOrdered By: Opal Ga on 53-76-9854SHM/1.73 sq M.predicted among non-blacks MDRD (S/P/Bld) [Vol rate/Area]54 mL/MinOhio Valley Surgical HospitalGlobulin Calc (S) [Mass/Vol]Ordered By: Opal Ga on 51-05-1138Jrklrvsz (S) [Mass/Vol]2.2 g/dLOhio Valley Surgical HospitalNo Panel InformationOrdered By: Opal Ga on 73-33-1453Kzylilywe GFR ()> 60 mL/MinOhio Valley Surgical HospitalComment on above:GFR estimated reference range: According to KDOQI guidelines, <60 ml/min/1.73m2 is sufficient todiagnose a patient with chronic kidney disease.Pharmacy Creatinine Clearance (ChemN/[facility] DaytonProtein [Mass/volume] in Serum or PlasmaOrdered By: Opal Ga on 54-46-7214Mlqhcww [Mass/Vol]5.7 g/dL 6.1-7.9[facility] Hospitalerum or plasma alanine aminotransferase measurement without P-5'-P (enzymatic activiOrdered By: Opal Ga on 64-91-5586RSF No additional P-5'-P [Catalytic activity/Vol]19 U/B21-53IxissucizBlanchard Valley Health System Blanchard Valley Hospitalerum or plasma albumin/globulin mass ratioOrdered By: Opal Ga on 12-95-9738Iqceyfq/Globulin [Mass ratio]1.6 {ratio}[facility] Hospitalerum or plasma alkaline phosphatase measurement (enzymatic activity/volume)Ordered By: Opal Ga on 57-15-0460JGY [Catalytic activity/Vol]92 U/L04-09PpdrckvikBlanchard Valley Health System Blanchard Valley Hospitalerum or plasma anion gap determinationOrdered By: Opal Ga on 71-74-6027Itmdy gap [Moles/Vol]15.3 mmol/L6.0-15.0[facility] Hospitalerum or plasma aspartate aminotransferase measurement (enzymatic activity/volume)Ordered By: Opal Ga on 36-64-4411RXD [Catalytic activity/Vol]27 U/A71-83JcucycmsqBlanchard Valley Health System Bl[facility] Valley Hospitalerum or plasma calcium measurement (mass/volume)Ordered By: Opal Ga on 13-34-1228Xpdexlr [Mass/Vol]9.6 mg/dL8.2-10.2FCommunity Regional Medical Center Serum or plasma chloride measurement (moles/volume)Ordered By: Opal Ga on 92-66-7658Uokakxfp [Moles/Vol]103 mmol/X38-587JqonvmjjkOhio Valley Surgical Hospital Serum or plasma glucose measurement (mass/volume)Ordered By: Opal Ga on 83-50-0406Qkyhntj [Mass/Vol]84 mg/lV37-350LhdkfbxahOhio Valley Surgical Hospital Comment on above:ADA recommended reference rangeRandom Glucose Reference Range is dependent on time and content of last meal. Glucose of more than 200 mg/dL in a nonstressed, ambulatory subject supports the diagnosisof Diabetes Mellitus. Serum or plasma potassium measurement (moles/volume)Ordered By: Opal Ga on 18-67-5928Pzrvzcbgu [Moles/Vol]4.5 mmol/L3.5-5.1FUniversity Hospitals Beachwood Medical Centererum or plasma sodium measurement (moles/volume)Ordered By: Opal Ga on 58-47-6503Zspsjt [Moles/Vol]139 mmol/D798-215AlobfgtvvOhio Valley Surgical Hospital Serum or plasma total bilirubin measurement (mass/volume)Ordered By: Opal Ga on 60-42-4357Biitpskdq [Mass/Vol]1.2 mg/dL0.3-1.2FUniversity Hospitals Beachwood Medical Centererum or plasma total carbon dioxide measurement (moles/volume)Ordered By: Opal Ga on 34-38-4328CA9 [Moles/Vol]25.2 mmol/L22.0-30.0[facility] Hospitalerum or plasma urea nitrogen measurement (mass/volume)Ordered By: Opal Ga on 17-33-1828Rzze nitrogen [Mass/Vol]16 mg/dL9-[facility] HospitalTS DL <= 0.005 mIU/L QnOrdered By: Opal Ga on 80-84-2641IAN Qn 1.83 m[IU]/L0.45-5.33[facility] HospitalThyroxine (T4) free [Mass/volume] in Serum or PlasmaOrdered By: Opal Ga on 40-42-5892Zupf T4 [Mass/Vol]1.09 ng/dL0.61-1.12[facility] HospitalOffice Visit (Cardiology)on 71-00-5771Kessye-up visitDiagnoses/Problems Assessed Non-ischemic cardiomyopathy (425.4) (I42.8) Chronic [...] Former smoker Tobacco Use Screening; Status:Complete; Done: [id number] Patient Instructions By signing my name below, [...] catheterization History of Complete colonoscopy [facility] History of Hip replacement History [...] com (more content not included)...NormalUH TouchworksTobacco Screening.on 35-73-0311Nrajg depression screening assessmentNoWest [facility] Luristic DO Work Phone: Fall risk assessmentb) One or more falls in the last yearWest [facility] Luristic DO Work Phone: Tobacco use status CPHSb) NoMState [facility] [place] [address] DO Work Phone: Tobacco Screening.on 86-31-3716Cyln risk assessmentb) One or more falls in the last yearWest [facility] [address] DO Work Phone: Tobacco use status CPHSb) NoMState [facility] [place] [address] DO Work Phone: Vital Signs Date TimeVital SignValuePerforming IovjbgkdcXptmkwsp13-08-3843 14:46-0400Heart rate95 /minOpal Ga DO Work Phone: [facility]10-14-2025 14:46-0400 Respiratory rate20 /minOpal Ga DO Work Phone: [phone]10-14-2025 12:00-0400 Body ziswglbpwln19.8 [degF]Opal Ga DO Work Phone: [phone]10-14-2025 12:00-0400 Diastolic blood jnzunpzt33 mm[Hg]Opal Ga DO Work Phone: [address] [place], [place] 4808410-14-2025 12:00-0400 SaO2% (BldA) [Mass fraction]94 %Opal Ga DO Work Phone: [facility]10-14-2025 12:00-0400 Systolic blood yrdklpho232 mm[Hg]Opalamadou Ga DO Work Phone: [facility]10-14-2025 05:59-0400 Body dsmfmo36 kgOpal Ga DO Work Phone: [facility]10-09-2025 13:08-0400 Body keuygv514.64 cmOpal Ga DO Work Phone: [facility]10-08-2025 16:05-0400 Diastolic blood gvwwsekf51 mm[Hg]PHYSICIAN NO [facility]10-08-2025 16:05-0400Heart rate97 /minPHYSICIAN [facility]10-08-2025 16:05-0400Respiratory rate16 /minPHYSICIAN [facility]10-08-2025 16:05-3300OjO5% (BldA) [Mass fraction]100 %PHYSICIAN NO [facility]10-08-2025 16:05-0400Systolic blood zludygpz436 mm[Hg]PHYSICIAN NO [facility]10-08-2025 12:10-0400Body lgdejy785.64 cmPHYSICIAN [facility]10-08-2025 12:10-0400Body .2 [degF]PHYSICIAN [facility]10-08-2025 12:10-0400 Body astcxp44.4 kgPHYSICIAN [facility]09-30-2025 08:56-0400Body .64 cmPHYSICIAN [facility]09-30-2025 08:56-0400Body isfzfw56 kgPHYSICIAN [facility]08-06-2025 08:00-0400Body rjhcsvzggyr56.6 [degF]Melvi Hindsb [employer] Work Phone: [address] [place], [place] 1215408-06-2025 08:00-0400 Diastolic blood cghlnssa17 mm[Hg]Melvi Kiera [employer] Work Phone: [facility]08-06-2025 08:00-0400 Heart rate67 /minAmanda Kiera [employer] Work Phone: [facility]08-06-2025 08:00-0400 Respiratory rate18 /minAmanda Kiera [employer] Work Phone: [facility]08-06-2025 08:00-0400 SaO2% (BldA) [Mass fraction]93 %Melvi Kiera [employer] Work Phone: [facility]08-06-2025 08:00-0400 Systolic blood lknctiwj78 mm[Hg]Melvi Kiera [employer] Work Phone: [address] [place], [place] 1215408-06-2025 06:11-0400 Body fmdytf07.4 kgAmanda Kiera [employer] Work Phone: [phone]([phone] [place], [place] 5465508-03-2025 03:35-0400 Inhaled oxygen flow rate2 L/minAmanda Kiera [employer] Work Phone: [phone]08-02-2025 14:03-0400 Body sdoyxd654.48 cmAmanda Kiera [employer] Work Phone: [phone])[address]08-01-2025 22:55-0400 Diastolic blood dobqrqpi52 mm[Hg]Melvi Kiera [employer] Work Phone: [phone]08-01-2025 22:55-0400 Heart dtxp606 /minAmanda Kiera [employer] Work Phone: [phone] [place], [place] 1215408-01-2025 22:55-0400 Respiratory rate20 /minAmanda Kiera [employer] Work Phone: [address] [place], [place] 1215408-01-2025 22:55-0400 SaO2% (BldA) [Mass fraction]98 %Melvi Kiera [employer] Work Phone: 1(855)524-[address] [place], [place] 5465508-01-2025 22:55-0400 Systolic blood zbppshtu474 mm[Hg]Melvi Kiera [employer] Work Phone: [phone]([phone] [place], [place] 5465508-01-2025 17:56-0400 Body dlsumi422.48 cmAmanda Kiera [employer] Work Phone: 1([phone])357-[address] [place], [place] 5465508-01-2025 17:56-0400 Body jdtglwoaiwo46.7 [degF]Melvi Kiera [employer] Work Phone: 1([phone])294-[address] [place], [place] 5465508-01-2025 17:56-0400 Body pwrsxa98.1 kgAmanda Kiera [employer] Work Phone: [phone])[address]07-31-2025 14:00-0400 Body knjeay216.48 cmAmanda Kiera [employer] Work Phone: [facility]07-31-2025 14:00-0400 Body hltiykokugm08.2 [degF]Melvi Kiera [employer] Work Phone: [facility]07-31-2025 14:00-0400 Diastolic blood btdcetsl94 mm[Hg]Melvi Kiera [employer] Work Phone: [facility]07-31-2025 14:00-0400 Heart rate43 /minAmanda Kiera [employer] Work Phone: [facility]07-31-2025 14:00-0400 Systolic blood afsibzfm902 mm[Hg]Melvi Kiera [employer] Work Phone: [phone]05-13-2025 11:27-0400 Body opxyevlquvv40.7 [degF]Melvi Kiera [employer] Work Phone: [facility]05-13-2025 11:27-0400 Diastolic blood pfsyushz29 mm[Hg]Melvi Kiera [employer] Work Phone: [facility]05-13-2025 11:27-0400 Heart rate83 /minAmanda Kiera [employer] Work Phone: [facility]05-13-2025 11:27-0400 Respiratory rate18 /minAmanda Kiera [employer] Work Phone: [phone]05-13-2025 11:27-0400 SaO2% (BldA) [Mass fraction]99 %Melvi Kiera [employer] Work Phone: [facility]05-13-2025 11:27-0400 Systolic blood ndiyaedk957 mm[Hg]Melvi Kiera [employer] Work Phone: [facility]05-13-2025 06:00-0400 Body ggaygd39.1 kgAmanda Kiera [employer] Work Phone: [facility]05-09-2025 16:26-0400 Body yslweu439.64 cmAmanda Kiera [employer] Work Phone: [phone] [place], [place] 5465505-09-2025 04:00-0400 Inhaled oxygen flow rate2 L/minAmanda Kiera [employer] Work Phone: 1(287)187-[address] [place], [place] 5465505-08-2025 19:00-0400 Diastolic blood mexteugr11 mm[Hg]Melvi Kiera [employer] Work Phone: [address] [place], [place] 1215405-08-2025 19:00-0400 Heart anky564 /minAmanda Kiera [employer] Work Phone: 1([phone] [place], [place] 5465505-08-2025 19:00-0400 Inhaled oxygen flow rate2 L/minAmanda Kiera [employer] Work Phone: [address] [place], [place] 1215405-08-2025 19:00-0400 Respiratory rate24 /minAmanda Kiera [employer] Work Phone: [address] [place], [place] 1215405-08-2025 19:00-0400 SaO2% (BldA) [Mass fraction]95 %Melvi Kiera [employer] Work Phone: 1(109)730-[address] [place], [place] 5465505-08-2025 19:00-0400 Systolic blood bgyxsfjy843 mm[Hg]Melvi Kiera [employer] Work Phone: [address] [place], [place] 1215405-08-2025 14:38-0400 Body nsjqva903.64 cmAmanda Kiera [employer] Work Phone: [phone] [place], [place] 5465505-08-2025 14:38-0400 Body tecbwsnysly91.2 [degF]Melvi Kiera [employer] Work Phone: [address] [place], [place] 1215405-08-2025 14:38-0400 Body rkeigl708.2 kgAmanda Kiera [employer] Work Phone: [phone] [place], [place] 5465502-20-2025 12:09-0500 Body glhkoqotdve11.1 [degF]Partha Gabriel DPM Work Phone: [facility]02-20-2025 12:09-0500Diastolic blood dtxclmuv12 mm[Hg]Partha Smartert DPM Work Phone: [facility]02-20-2025 12:09-0500Heart rate78 /min Partha Harvey DPM Work Phone: [facility]02-20-2025 12:09-0500Respiratory rate 18 /minVidyakhurram Gabriel DPM Work Phone: [facility]02-20-2025 12:09-1659KwM8% (BldA) [Mass fraction]98 %Partha Gabriel DPM Work Phone: [facility]02-20-2025 12:09-0500Systolic blood mm[Hg]Partha Smartert DPM Work Phone: [facility]01-09-2025 16:16-0500Body temperature 97.9 [degF]Opal Tjs DO Work Phone: [facility]01-09-2025 16:16-0500 Diastolic blood npqyxkom63 mm[Hg]Opal Sparkss DO Work Phone: [facility]01-09-2025 16:16-0500 Heart rate79 /minEdmondamadou Kuns DO Work Phone: [facility]01-09-2025 16:16-0500 Respiratory rate18 /minEdmondamadou Kuns DO Work Phone: [facility]01-09-2025 16:16-0500 SaO2% (BldA) [Mass fraction]94 %Opal Sparkss DO Work Phone: [facility]01-09-2025 16:16-0500 Systolic blood kkpomszy736 mm[Hg]Opal Sparkss DO Work Phone: [facility]01-09-2025 04:08-0500 Body .7 kgOpal Ga DO Work Phone: 1(501)5-[address] [place], [place] 5571601-07-2025 12:58-0500 Body hdlzep305.64 cmOpal Ga DO Work Phone: [phone] [place], [place] 5571601-04-2025 13:32-0500 Diastolic blood pmxuvovn03 mm[Hg]Opal Ga DO Work Phone: 1(254)6-[address] [place], [place] 5571601-04-2025 13:32-0500 Heart rate58 /minOpal Ga DO Work Phone: [phone] [place], [place] 5571601-04-2025 13:32-0500 SaO2% (BldA) [Mass fraction]96 %Opal Ga DO Work Phone: 1(856)[address]01-04-2025 13:32-0500 Systolic blood kkupojao257 mm[Hg]Opal Ga DO Work Phone: 1(530)[address]01-04-2025 11:19-0500 Respiratory rate18 /minOpal Ga DO Work Phone: 3(213)7-[address] [place], [place] 5571601-04-2025 09:52-0500 Body rbcopp237.64 cmOpal Ga DO Work Phone: [phone])[address]01-04-2025 09:52-0500 Body soslhpvvypr02.6 [degF]Opal Ga DO Work Phone: 3(322)6-[address] [place], [place] 5571601-04-2025 09:52-0500 Body rimjpf40.6 kgOpal Ga DO Work Phone: [phone])5-[address] [place], [place] 5571612-23-2024 10:46-0500 Body uauhuhbuxym04.01 [degF]Randi Burris MD Work Phone: [facility]12-23-2024 10:46-0500Diastolic blood mm[Hg]Randi Burris MD Work Phone: [address] [place], [place] 9828012-23-2024 10:46-0500Heart rate95 /Joseph Burris MD Work Phone: [facility]12-23-2024 10:46-0500 Respiratory rate18 /Joseph Burris MD Work Phone: [facility]12-23-2024 10:46-0352BzH9% (BldA) [Mass fraction]96 %Randi Bruris MD Work Phone: [facility]12-23-2024 10:46-0500Systolic blood vzugzsvz328 mm[Hg]Randi Burris MD Work Phone: [facility]12-17-2024 07:45-0500Body upbeve616.6 cmSmitali Burris MD Work Phone: [facility]12-17-2024 07:45-0500Body mass index (BMI) [Ratio]30.7 kg/n9KkmgwtRandi Burris MD Work Phone: [facility]12-17-2024 07:45-0500Body lrlbso29.27 kgRandi Burris MD Work Phone: [facility]12-12-2024 15:20-0500Body bjaumj161.6 cmTavo Mcintyre DO Work Phone: [facility]12-12-2024 15:20-0500 Body mass index (BMI) [Ratio]30.83 kg/n2KhdvpcwTavo Mcintyre DO Work Phone: [facility]12-12-2024 15:20-0500 Body onxnxv81.64 kgWisalvatore Mcintyre DO Work Phone: [facility]12-12-2024 15:20-0500 Diastolic blood qrjwferm38 mm[Hg]Tavo Mcintyre DO Work Phone: [facility]12-12-2024 15:20-0500 Heart wrcc779 /Neel Mcintyre DO Work Phone: [facility]12-12-2024 15:20-0500 Systolic blood grkfeobn515 mm[Hg]Tavo Mcintyre DO Work Phone: [facility]12-09-2024 09:35-0500 Body tujczu350.64 cmOpal Ga DO Work Phone: [facility]12-09-2024 09:35-0500 Body mass index (BMI) [Ratio]30.7 kg/v1BuzamOpal Sparkss DO Work Phone: 1(120)0-[address] [place], [place] 5571612-09-2024 09:35-0500 Body .18 kgOpal Ga DO Work Phone: 1([phone])[address]12-09-2024 09:35-0500 Diastolic blood dwvsqenw20 mm[Hg]Opal Sparksmyranda DO Work Phone: [phone]12-09-2024 09:35-0500 Heart rate51 /Ann Ga DO Work Phone: 1([phone] [place], [place] 4808412-09-2024 09:35-0500 Respiratory rate18 /minOpal Ga DO Work Phone: 1(162)0[facility]80[facility]12-09-2024 09:35-0500 SaO2% (BldA) [Mass fraction]95 %Opal Ga DO Work Phone: 1(058)7-[address] [place], [place] 5571612-09-2024 09:35-0500 Systolic blood arozticd704 mm[Hg]Opalamadou Sparkss DO Work Phone: 1(522)9-[address] [place], [place] 5571610-22-2024 12:47-0400 Body jzrioo206.64 cmOhio Valley Surgical Hospital10-22-2024 12:47-0400Body mass index (BMI) [Ratio]28.8 kg/a7ElkzvnjmfOhio Valley Surgical Hospital10-22-2024 12:47-0400Body phyqzg28.19 [facility] 12:47-0400Diastolic blood biozthnm98 mm[Hg][facility] 12-27-2023 12:47-0400Heart rate78 /[facility] 12-27-2023 12:47-0400Respiratory rate16 /[facility] 12-27-2023 12:47-5932GgA4% (BldA) [Mass fraction]99 %[facility]10-22-2024 12:47-0400Systolic blood mm[Hg][facility]07-17-2024 10:00-0400Body .64 cmDO Opal Ga Work Phone: [facility]07-17-2024 10:00-0400 Body mass index (BMI) [Ratio]29.8 kg/m2DO Opal Ga Work Phone: [facility]07-17-2024 10:00-0400 Body edtqgh75.91 kgDO Opal Ga Work Phone: [facility]07-17-2024 10:00-0400 Diastolic blood mazlwhor06 mm[Hg]DO Opal Ga Work Phone: [facility]07-17-2024 10:00-0400 Heart rate72 /MariAmrik Ga Work Phone: [facility]07-17-2024 10:00-0400 Respiratory rate16 /Annelise Ga Work Phone: [facility]07-17-2024 10:00-0400 Systolic blood oslekepp870 mm[Hg]DO Opal Ga Work Phone: [facility]05-08-2024 10:30-0400 Diastolic blood qjgrjqyl05 mm[Hg]Tavo Mcintyre DO Work Phone: [facility]05-08-2024 10:30-0400 Systolic blood wxsaadvl060 mm[Hg]Tavo Mcintyre DO Work Phone: [facility]05-08-2024 09:57-0400 Body hwpisd958.6 cmTavo Mcintyre DO Work Phone: [facility]05-08-2024 09:57-0400 Body mass index (BMI) [Ratio]29.8 kg/w6YyokcrgTavo Carodon DO Work Phone: [facility]05-08-2024 09:57-0400 Body ihhsnx90.73 kgWisalvatore Carodon DO Work Phone: [facility]05-08-2024 09:57-0400 Heart rate60 /minWisalvatore Mcintyre DO Work Phone: [facility]01-12-2024 09:15-0500 Body pepudr779.64 cmOpal Ga Other [employer] Other 01-12-2024 09:15-0500Body mass index (BMI) [Ratio]29.7 kg/y3LaahwOpal Ga Other [employer] Other 01-12-2024 09:15-0500Body bokefm33.46 kgEdmondamadou Tjmyranda Other [employer] Other 01-12-2024 09:15-0500Diastolic blood sifalrkf04 mm[Hg] Opal Ga Other [facility] Other 01-12-2024 09:15-0500Respiratory rate16 /minOpal Ga Other [facility] Other 01-12-2024 09:15-8313PyY1% (BldA) [Mass fraction]97 % Opal Ga Other [facility] Other 01-12-2024 09:15-0500Systolic blood mm[Hg] Opal Ga Other [employer] Other 07-12-2023 09:15-0400Body .64 cmOpal Ga Other [facility] Other 07-12-2023 09:15-0400Body mass index (BMI) [Ratio] 28.11 kg/w1WmvbvOpal Ga Other [facility] 07-12-2023 09:15-0400Body aasksj24.02 kgOpal Ga Other [facility] Other 07-12-2023 09:15-0400Diastolic blood iokezutc91 mm[Hg] Opal Ga Other [place] brettapproved Other 07-12-2023 09:15-0400Respiratory rate16 /minOpal Ga Other [facility] Other 07-12-2023 09:15-7493PuO9% (BldA) [Mass fraction]96 % Opal Ga Other [place] brettapproved Other 07-12-2023 09:15-0400Systolic blood xjapgoju887 mm[Hg] Opal Ga Other [employer] Other 05-03-2023 09:36-0400Body tyxbuq334.64 cmOpal Ga Work Phone: 1(116) [phone][facility]ez[facility] DO Work Phone: 1(100) 158-566505-03-2023 09:36-0400Body mass index (BMI) [Ratio] 28.89 kg/r6LnkkmOpal Ga Work Phone: mp823-8898PE-Lpoeq [place] [employer] 250 DO Work Phone: 1(747) 427-142005-03-2023 09:36-0400Body surface area Derived from formula1.91 y8DeyiuOpal Ga Work Phone: mp252-6571MV-Sxcal [place] [employer] 250 DO Work Phone: 1(960) 343-852805-03-2023 09:36-0400Body nxvbco81.19 kgEdmondamadou Ga Work Phone: 1(493) [phone]-Wdnyw [place] [employer] [facility] 250 DO Work Phone: 1(224) 463-165805-03-2023 09:36-0400Diastolic blood mm[Hg] Opal Ga Work Phone: 1(505) [phone]-Abwln [place] [facility] 250 DO Work Phone: 1(423) 261-479505-03-2023 09:36-0400Heart rate76 /minBryamadou Ga Work Phone: 1(942) [phone]-Hqyyh [facility] 250 DO Work Phone: 1(540) 138-208905-03-2023 09:36-0400Systolic blood fxaxcepi964 mm[Hg] Opal Ga Work Phone: 1(979) [phone]-Ecakm [place] [employer] 250 DO Work Phone: 1(277) 471-929404-03-2023 10:15-0400Body iqrpze741.64 cmOpal Tjmyranda Other noStorwize Other 04-03-2023 10:15-0400Body mass index (BMI) [Ratio]29.7 kg/i0WlltlOpal Ga Other [facility] Other 04-03-2023 10:15-0400Body wucxch57.46 kgOpal Ga Other [facility] Other 04-03-2023 10:15-0400Diastolic blood bqwemhff42 mm[Hg] Opal Sparksmyranda Other [place] brettapproved Other 04-03-2023 10:15-0400Respiratory rate16 /minOpal Daily Other [place] brettapproved Other 04-03-2023 10:15-0627UpC1% (BldA) [Mass fraction]96 % Opal Sparksmyranda Other [place] brettapproved Other 04-03-2023 10:15-0400Systolic blood yldkyumv473 mm[Hg] Opal Tjmyranda Other [place] brettapproved Other 01-04-2023 14:47-0500Body iruomr355.64 cmOpal Ga Work Phone: 1(998) [phone]-Lqbvf [place] [employer] 250 DO Work Phone: 1(450) 186-846701-04-2023 14:47-0500Body mass index (BMI) [Ratio] 30.18 kg/w1UwjwpOpal Ga Work Phone: 1(110) [phone]-Rwkes [place] [employer] 250 DO Work Phone: 1(966) 432-542401-04-2023 14:47-0500Body surface area Derived from formula1.94 o7UrkdlOpal Ga Work Phone: 1(155) [phone]-Yvkto [place] [employer] 250 DO Work Phone: 1(521) [phone] 14:47-0500Body bynwet84.82 kgEdmondamadou Ga Work Phone: 1(538) [phone]-Shiza [place] [employer] 250 DO Work Phone: 1(427) 422-694601-04-2023 14:47-0500Diastolic blood nxxgugpe71 mm[Hg] Opal P Kuns Work Phone: mp111-7267VP-Uxcpu [place] [employer] 250 DO Work Phone: 1(380) [phone] 14:47-0500Heart rate72 /minOpal Sparkss Work Phone: mp899-1178DZ-Zvzpj [place] [employer] 250 DO Work Phone: 1(671) 620-589201-04-2023 14:47-0500Systolic blood mffcexvv077 mm[Hg] Opal Ga Work Phone: mp752-1659IW-Qxagv [place] [employer] 250 DO Work Phone: 1(498) 471-474001-03-2023 13:30-0500Body evnyja519.24 cmOpal Ga Other [facility] Other 01-03-2023 13:30-0500Body mass index (BMI) [Ratio] 42.82 kg/l3SahegOpal Ga Other [facility] Other 01-03-2023 13:30-0500Body .64 kgOpal Ga Other [facility] Other 01-03-2023 13:30-0500Diastolic blood mm[Hg] Opal Ga Other [employer] Other 01-03-2023 13:30-0500Respiratory rate16 /minOpal Ga Other [facility] Other 01-03-2023 13:30-4976NaH1% (BldA) [Mass fraction]96 % Opal Ga Other [employer] Other 01-03-2023 13:30-0500Systolic blood zgujhoel383 mm[Hg] Opal Ga Other [employer] Other 12-06-2022 15:45-0500Body mlujvw496.24 cmOpal Sparksmyranda Other [facility] Other 12-06-2022 15:45-0500Body mass index (BMI) [Ratio] 44.92 kg/d4UlixaOpal Ga Other [employer] Other 12-06-2022 15:45-0500Body zlywcc35.9 kgEdmondamadou Ga Other [employer] Other 12-06-2022 15:45-0500Diastolic blood mm[Hg] Opal Ga Other [employer] Other 12-06-2022 15:45-0500Respiratory rate16 /minEdmondamadou Ga Other [employer] Other 12-06-2022 15:45-3271GfY8% (BldA) [Mass fraction]98 % Opal Ga Other [employer] Other 12-06-2022 15:45-0500Systolic blood xhdujmkf133 mm[Hg] Opal Ga Other [employer] brettapproved Other 11-12-2022 11:37-0500Body mxjsepdhynd61.1 [degF]DO Opal Ga Work Phone: [facility]11-12-2022 11:37-0500 Diastolic blood bexztlhs38 mm[Hg]DO Opal Ga Work Phone: [facility]11-12-2022 11:37-0500 Heart rate79 /minDO Opal Ga Work Phone: [facility]11-12-2022 11:37-0500 Respiratory rate16 /Annelise Ga Work Phone: [facility]11-12-2022 11:37-0500 SaO2% (BldA) [Mass fraction]97 %DO Opal Ga Work Phone: [facility]11-12-2022 11:37-0500 Systolic blood mzuiwqcn496 mm[Hg]DO Opal Ga Work Phone: [facility]11-12-2022 04:10-0500 Body roznjo83.5 kgDO Opal Ga Work Phone: 1(752)625-[address] [place], [place] 5571611-09-2022 16:00-0500 Inhaled oxygen flow rate1 L/Annelise Ga Work Phone: [address] [place], [place] 4808411-07-2022 13:55-0500 Body .64 cmDO Opal Ga Work Phone: [facility]11-05-2022 14:00-0400 Diastolic blood mm[Hg]DO Opal Ga Work Phone: [facility]11-05-2022 14:00-0400 Heart rate67 /Annelise Ga Work Phone: [facility]11-05-2022 14:00-0400 Inhaled oxygen flow rate3 L/Annelise Ga Work Phone: [facility]11-05-2022 14:00-0400 Respiratory rate19 /Annelise Ga Work Phone: [facility]11-05-2022 14:00-0400 SaO2% (BldA) [Mass fraction]99 %DO Opal Ga Work Phone: [facility]11-05-2022 14:00-0400 Systolic blood ftvrmixd339 mm[Hg]DO Opal Ga Work Phone: [facility]11-05-2022 09:41-0400 Body .2 [degF]DO Opal Ga Work Phone: [facility]11-05-2022 09:38-0400 Body qdqqya621.64 cmDO Opal Ga Work Phone: [facility]11-05-2022 09:38-0400 Body kgDO Opal Ga Work Phone: [facility]11-03-2022 13:45-0400 Body jqrnsy599.24 cmOpal Ga Other [facility] Other 11-03-2022 13:45-0400Body mass index (BMI) [Ratio] 48.42 kg/b9Gdtql Tjmyranda Other [facility] Other 11-03-2022 13:45-0400Body jefovc95.98 kgOpal Ga Other [facility] Other 11-03-2022 13:45-0400Diastolic blood jefmevsj03 mm[Hg] Opal Ga Other [facility] Other 11-03-2022 13:45-0400Respiratory rate16 /minOpal Tjmyranda Other [facility] Other 11-03-2022 13:45-3770TmL3% (BldA) [Mass fraction]94 % Opal Ga Other [facility] Other 11-03-2022 13:45-0400Systolic blood mm[Hg] Opal Ga Other noStorwize Other 08-08-2022 09:00-0400Body heightEdmondamadou Tjmyranda Other [facility] Other 08-08-2022 09:00-0400Body mass index (BMI) [Ratio] 32.83 kg/m2MuywiOpal Ga Other [facility] Other 08-08-2022 09:00-0400Body lmkemd91.26 kgOpal Ga Other [facility] Other 08-08-2022 09:00-0400Diastolic blood mm[Hg] Opal Ga Other [facility] Other 08-08-2022 09:00-0400Respiratory rate16 /minOpal Ga Other [facility] Other 08-08-2022 09:00-9976GmC1% (BldA) [Mass fraction]95 % Opal Ga Other [facility] Other 08-08-2022 09:00-0400Systolic blood odfdwmfp300 mm[Hg] Opal Ga Other [employer] Other 07-08-2022 10:00-0400Body heightEdmondamadou Tjmyranda Other [employer] Other 07-08-2022 10:00-0400Diastolic blood erxcinpd58 mm[Hg] Opal Ga Other [employer] Other 07-08-2022 10:00-0400Respiratory rate16 /minOpal Ga Other [facility] Other 07-08-2022 10:00-5223KuC2% (BldA) [Mass fraction]96 % Opal Ga Other [place] bretta[facility]roved Other 07-08-2022 10:00-0400Systolic blood oovspwrd140 mm[Hg] Opal Ga Other [place] bretta[facility]roved Other 06-27-2022 12:00-0400Body heightOpal Ga Other [place] brettapproved Other 06-27-2022 12:00-0400Diastolic blood qpcokwsa49 mm[Hg] Opal Ga Other [place] [facility]retta[facility]ro[facility] Other 06-27-2022 12:00-0400Systolic blood gvaezuvy861 mm[Hg] Opal Ga Other [place] [facility]retta[facility]ro[facility] Other 05-31-2022 14:17-0400Body ncvewz583.64 cmOpal Sparksmyranda Work Phone: 1(278) [phone]-Cnshr [place] [employer] 250 DO Work Phone: 1(998) 248-127205-31-2022 14:17-0400Body mass index (BMI) [Ratio] 33.09 kg/p9OibmfOpal Sparkss Work Phone: mp545-7347TR-Ykuie [place] [employer] 250 DO Work Phone: 1(237) 181-353405-31-2022 14:17-0400Body surface area Derived from formula2.02 b2KxpofOpal Sparkss Work Phone: mp525-9046EX-Muuar [place] [employer] 250 DO Work Phone: 1(129) 551-694405-31-2022 14:17-0400Body xhrbef18.99 kgOpal Sparksmyranda Work Phone: mp461-1869TO-Wzklg [place] [employer] 250 DO Work Phone: 1(214) 411-955505-31-2022 14:17-0400Diastolic blood amanthcq39 mm[Hg] Opal Ga Work Phone: mp626-1992HD-Nferu [place] [employer] 250 DO Work Phone: 1(241) 480-423905-31-2022 14:17-0400Heart rate54 /minOpal Sparkss Work Phone: mp535-8075XC-Lvlml [place] [employer] 250 DO Work Phone: 1(755) 258-474105-31-2022 14:17-0400Systolic blood mm[Hg] Opal Ga Work Phone: mp937-5457AM-Scjjv [place] [employer] 250 DO Work Phone: 1(950) [phone] 09:30-0500Body heightOpal Ga Other [employer] Other 11-15-2021 09:30-0500Body mass index (BMI) [Ratio] 33.67 kg/v6HyekkOpal Ga Other [facility] Other 11-15-2021 09:30-0500Body .62 kgOpal Ga Other [facility] Other 11-15-2021 09:30-0500Diastolic blood ohhsgoxz00 mm[Hg] Opal Ga Other [facility] Other 11-15-2021 09:30-0500Respiratory rate16 /minOpal Ga Other [facility] Other 11-15-2021 09:30-7332YaN4% (BldA) [Mass fraction]96 % Opal Tjmyranda [facility] Other 11-15-2021 09:30-0500Systolic blood qgqpjfxi611 mm[Hg] Opal Ga Other [place] brettapproved Other 11-01-2021 15:22-0400Body yyoann886.64 cmOpal Myers Daily Work Phone: 1(590) [phone]-Idnca [place] [facility] 250 DO Work Phone: 1(542) 956-148511-01-2021 15:22-0400Body mass index (BMI) [Ratio] 33.25 kg/b3JoxmhOpal Ga Work Phone: 1(140) [phone]-Aciku [place] [facility] 250 DO Work Phone: 1(871) 970-705511-01-2021 15:22-0400Body surface area Derived from formula2.03 s3Qkkdv Louis Ga Work Phone: 1(378) [phone]-Fqxmk [place] [facility] 250 DO Work Phone: 1(738) 343-627111-01-2021 15:22-0400Body clqsee31.44 kgOpal Myers Daily Work Phone: 1(702) [phone]-Ubgmv [place] [facility] 250 DO Work Phone: 1(462) 833-660511-01-2021 15:22-0400Diastolic blood dqhvqjte95 mm[Hg] Opal Ga Work Phone: 1(685) [phone]-Wiqqv [place] [facility] 250 DO Work Phone: 1(889) [phone] 15:22-0400Heart rate56 /minOpal Ga Work Phone: 1(332) [phone]-Zmllz [place] [facility] 250 DO Work Phone: 1(340) 452-831711-01-2021 15:22-0400Systolic blood kxnlleov085 mm[Hg] Opal P Kuns Work Phone: 1(955) [phone]-Ajkrh [place] [facility] 250 DO Work Phone: Encounters Encounter DateEncounter TypeCare ProviderFacilityStart: 12-61-4070Stbwk Massouh MD-[facility] Work Phone: Start: 12-30-2024 End: 34-54-5882bzlpzrhnxkVyjld Daily DO Work Phone: -[facility]ospStart: 12-30-2024 End: 21-27-8804Svpb Vinton M DO-[facility]ospStart: 12-27-2024 End: 37-08-0700xjnjmsyspvMozcn Kuns DO Work Phone: -[facility]ospStart: 12-27-2024 End: 05-80-7031Oekdjuza ReferredMelissa Vidya Marker DO-[facility]ospStart: 03-50-0533Jjl-patient / Non-visit(Maki) Cristy FATIMA-[facility] Work Phone: Start: 12-27-2024 End: 82-66-0274Ujngjsa Jane Marker DO-[facility]ospStart: 12-12-2024 End: 49-99-8248Ggetvvgnzy and management of inpatientFrederbronson Mccartney MD-4 [place] [facility] Work Phone: Start: 12-12-2024 End: 09-33-8090Iutnb Prasad MD-4 [place] [facility] Work Phone: Start: 12-04-2024 End: 64-89-7574Pwwbwsi encounter procedureElenandrés Montoya [employer]-[facility] [place] Work Phone: Start: 12-04-2024 End: 29-82-2091UqjpiKeely Montoya [employer]-[facility] [place] Work Phone: Start: 12-04-2024 End: 35-68-9465lgerridwuzTMHMAQRQO NO [facility] Work Phone: Start: 11-29-2024 End: 63-78-7899Oeqptxg encounter procedureKeely Montoya [facility] Work Phone: Start: 11-29-2024 End: 66-82-0392DjbqiKeely Montoya [facility] Work Phone: Start: 11-29-2024 End: 90-35-6192lxyxfszpwjGCJLHKVKD NO [facility] Work Phone: Start: 11-06-2024 End: 03-30-8854lokeskqigbYyotw Tjs DO Work Phone: [facility] Work Phone: Start: 11-06-2024 End: 90-01-0237Jlwxfyg encounter procedureKeely Montoya [facility] Work Phone: start: 11-06-2024 End: 76-93-6294LkmgkG[facility] Work Phone: start: 10-31-2024 End: 54-92-7724DomjJovany Stovall MD-CT [facility] [place] Work Phone: Start: 10-31-2024 End: 60-24-6867ufgwtjvdjzXxnxm Kuns DO Work Phone: [facility] Work Phone: Start: 10-31-2024 End: 57-42-7385Jowoznw encounter procedureJovany Stovall MD-CT [facility] [place] Work Phone: Start: 10-07-2024 End: 07-09-2313Chtsgapmfr and management of inpatientAmanda M Kiera [employer]BLER Work Phone: [facility] Work Phone: Start: 10-07-2024 End: 53-00-2551Hpygurw R. Frings DO-3 [place] [facility] Work Phone: Start: 36-43-4679Cvb-patient / Non-visitDafrederic Stovall [facility] Work Phone: start: 97-53-0265UrtcJovany Stovall MD[facility] Work Phone: start: 93-82-7162Bqp-patient / Non-visitMickari Reynolds [facility] Dis Work Phone: Start: 58-84-7267OeiezkwFrankie Reynolds MD[facility] Work Phone: Start: 83-50-3192Enr-patient / Non-visitDafrederic Stovall MD[facility] Neuro[facility] Work Phone: start: 61-21-9215aafegzmuopd encounterMelvi Fink Kiera [employer] Work Phone: [facility] Work Phone: Start: 06-31-3100Ykumogf R. Estuardongs DO-3 [facility] [facility] Work Phone: Start: 10-04-2024 End: 13-93-6308wrklzvegqfOeylrm M Kiera [employer] T[employer]SEMBLER Work Phone: [facility] Work Phone: Start: 10-04-2024 End: 70-14-6884Ekrfhjt encounter procedureMickari Reynolds MD[facility] Work Phone: Start: 10-04-2024 End: 85-21-2143WqlnkifFrankie Reynolds MDAs[facility] Work Phone: Start: 09-24-2024 End: 74-07-5515Pgepcpx encounter procedureW Be Mcintyre [facility] Work Phone: Start: 09-24-2024 End: 09-24-2024W Be Mcintyre DO-Lab [facility] Work Phone: Start: 09-24-2024 End: 05-55-4077icwsbwbznfIajdpy M Kiera [employer]ER Work Phone: [facility] Work Phone: Start: 09-18-2024 End: 78-57-1264javrmtaqlbVzvbhj Scott Kiera [employer]SEMBLER Work Phone: [facility] Work Phone: Start: 09-18-2024 End: 94-43-7822Cuihibd encounter procedureKeely [facility]Tr[facility] Work Phone: start: 09-18-2024 End: 05-32-5772Fpdhz [facility] Work Phone: start: 09-14-2024 End: 57-11-5163qmmelwicwkLcgvdg M Kiera [employer]ER Work Phone: [facility] Work Phone: Start: 09-14-2024 End: 26-72-1157Zydivgo encounter procedureOpal Ga P DO-Lab [facility] Work Phone: Start: 09-14-2024 End: 35-03-3644Coksu Kuns P DO-Lab [facility] Work Phone: Start: 08-27-2024 End: 30-52-8737Mnkpvgq encounter procedureBryamadou Sparkss P DO-Lab [facility] Work Phone: Start: 08-27-2024 End: 67-84-6922Legix Kuns P DO-Lab [facility] Work Phone: Start: 08-27-2024 End: 52-87-6276nbafosxwfdGptlu KunsFacility:[facility] Start: 04-42-8109puvebwiezzDsdzdnrteRichard PompaFacility:Infectious DiseaseStart: 62-62-6512csqlvhtzibCucsww J GaleaFacility:EU SanduskyStart: 07-23-2024 End: 76-44-1283dwnbzcgqnmWohfvs R BuntingFacility:[facility] Hospitaltart: 07-23-2024 End: 75-59-4014Gqndkkp encounter procedureDarrin Ray [facility] DO-Lab [facility] Work Phone: Start: 07-23-2024 End: 04-31-7949Wynofq Ray [facility] DO-Lab [facility] Work Phone: Start: 2024 End: 78-14-0378Kzjeautj Result EncounterFredric H Itjo annkowitz DO Work Phone: [facility] External Department UnsolicitedStart: 2024 End: 38-66-6030Qyamxtwr Result EncounterFredric H Itzkowitz DO Work Phone: [facility] External Department UnsolicitedStart: 2024 Non-patient / Non-visitMichael Myranda Reynolds MD-[facility] Work Phone: Start: 11-42-7475Lkmxtu Kiera [employer] Work Phone: [facility] Work Phone: Start: 07-12-2024 End: 84-41-4012Qpldohceoj and management of inpatientAmanda M Kiera [employer]ER Work Phone: [facility] Work Phone: Start: 07-12-2024 End: 19-15-6191Rpnyfa Kiera [employer]SEM[employer]ER Work Phone: [facility]-4 [place] [facility] Work Phone: Start: 07-12-2024 End: 53-24-6767hfeecleacbPAZNFAYCandy HAMPTONRAFacility:CD:[id number]: 07-11-2024 End: 85-15-2550uvwoklpjyoVjqvcfzjbRichard Mcclellancility:Infectious DiseaseStart: 07-09-2024 End: 11-39-1565ccwuxydhvaHcszvm R [facility] Work Phone: Start: 07-09-2024 End: 34-34-7147Usjzyftj ReferredDarrin Ray Bunting DO-Lab [facility] Work Phone: Start: 07-09-2024 End: 96-52-5592Xcxngt Bunting DO Work Phone: [facility]-Lab [facility] Work Phone: Start: 07-02-2024 End: 99-04-0890pmtbtbylulSyzucd R [facility] Work Phone: Start: 07-02-2024 End: 17-46-6545Amekhqob ReferredDarrin Ray Bunting DO-Lab [facility] Work Phone: Start: 07-02-2024 End: 92-19-2383Rsueuh Bunting DO Work Phone: [facility] Work Phone: Start: 06-26-2024 End: 40-55-8474sdduzonmugFpelewcpaRichard Mcclellancility:Infectious DiseaseStart: 06-25-2024 End: 74-19-3789qxzwfyocozUwauj Kuns DO Work Phone: [facility] Work Phone: Start: 06-25-2024 End: 53-27-7923Dtbiyprk ReferredDarrin Ray Bunting DO-Lab [facility] Work Phone: Start: 06-25-2024 End: 80-04-3254Atvtt Kuns DO Work Phone: [facility] Work Phone: Start: 06-18-2024 End: 41-58-6640cnbetowvouXocci Kuns DO Work Phone: [facility] Work Phone: Start: 06-18-2024 End: 32-90-1025Pnfayrfw ReferredBryamadou Sparkss DO Work Phone: [facility] Work Phone: Start: 06-18-2024 End: 58-82-8804Dfdtcmx encounter procedureDaalannaolinda Aguirre DO-Lab [facility] Work Phone: Start: 06-18-2024 End: 79-85-8788Efwjn Kuns DO Work Phone: [facility] Work Phone: Start: 06-13-2024 End: 59-45-0128mjxyzflfbnWetuz Tjs DO Work Phone: [facility] Work Phone: Start: 06-13-2024 End: 12-35-2673Ieguatqv ReferredBryamadou Sparkss DO Work Phone: [facility] Work Phone: Start: 06-13-2024 End: 29-22-6876Zsorvbx encounter procedureBryamadou Sparkss DO Work Phone: [facility] Work Phone: Start: 06-13-2024 End: 01-69-1518Xjtzs Kuns DO Work Phone: [facility] Work Phone: Start: 06-12-2024 End: [id number] M Lizzi DO Work Phone: [facility] Work Phone: Start: 06-12-2024 End: 21-99-9520Ylgsych encounter procedureOpal Ga DO Work Phone: [facility] Work Phone: Start: 06-12-2024 End: 04-56-0246Mcdcu Lizzi DO Work Phone: [facility] Work Phone: Start: 06-11-2024 End: [id number] M Lizzi DO Work Phone: [facility] Work Phone: Start: 06-11-2024 End: 00-65-1685Ziartrq encounter procedureOpal Ga DO Work Phone: [facility] Work Phone: Start: 06-11-2024 End: 49-05-5632Dlojl Lizzi DO Work Phone: [facility] Work Phone: Start: 06-07-2024 End: 07-49-7555ajjnoxvgfrQorlfh Noel Saltzman [employer] ASSEMBLER-CNPFacility:Infectious DiseaseStart: 06-06-2024 End: 40-38-6461kfkmohkgrnKwndn M Lizzi DO Work Phone: [facility] Work Phone: Start: 06-06-2024 End: 06-12-9468Lzlulgql ReferredMarcos Martin DO Work Phone: [facility] Work Phone: Start: 06-06-2024 End: 74-09-5233Dwbrgrr encounter procedureBryamadou Kuns DO Work Phone: [facility] Work Phone: Start: 06-06-2024 End: 18-84-5505Ldeta Lizzi DO Work Phone: [facility] Work Phone: Start: 06-04-2024 End: 78-72-2706ujmhoftewcNlcgel Noel Saltzman [employer] T[employer] ASSEMBLER-CNPFacility:Infectious DiseaseStart: 06-01-2024 End: 69-52-0357qjauzydqxtIzmlqy TannaFacility:[place]Start: 05-28-2024 End: 12-75-9767fguewlviyqVpvfr M Lizzi DO Work Phone: [facility] Work Phone: Start: 05-28-2024 End: 74-97-6535Znnihkm encounter procedureJaalondra Martin DO Work Phone: [facility] Work Phone: Start: 05-28-2024 End: 07-45-1612Vfesy Lizzi DO Work Phone: [facility] Work Phone: Start: 11-07-8400ahuheodrsoQebnv LueFacility:EU MarieuskyStart: 05-21-2024 End: 44-01-2905zyfpqwcksxCjmixe Noel Saltzman AIR TANK ASSEMBLER-CNPFacility:Infectious DiseaseStart: 05-21-2024 End: 80-18-7014vwlujoazymHsnzi M Lizzi DO Work Phone: [facility] Work Phone: Start: 05-21-2024 End: 77-44-2905Mdquwqn encounter procedureJaalondra Martin DO Work Phone: [facility] Work Phone: Start: 05-21-2024 End: 42-35-3519Nrlsq Veronica DO Work Phone: [facility] Work Phone: Start: 05-14-2024 End: 88-30-6016nlcedhelkfAlobu Scott Martin DO Work Phone: [facility] Work Phone: Start: 05-14-2024 End: 52-10-9585Hnlyrasd ReferredJared Veronica DO Work Phone: [facility] Work Phone: Start: 05-14-2024 End: 36-83-3783Tzznuxa encounter procedureJared Veronica DO Work Phone: [facility] Work Phone: Start: 05-14-2024 End: 04-31-6343Yzzvk Veronica DO Work Phone: [facility] Work Phone: Start: 05-10-2024 End: 30-99-9924vwmwtuqarvYxgclw Noel Saltzman AIR TANK ASSEMBLER-CNPFacility:Infectious DiseaseStart: 05-07-2024 End: 80-90-6885nvtvkmfjjpOudng M Veronica DO Work Phone: [facility] Work Phone: Start: 05-07-2024 End: 43-03-4107Eocgwuy encounter procedureJared Veronica DO Work Phone: [facility] Work Phone: Start: 05-07-2024 End: 42-76-5100Qdgao Veronica DO Work Phone: [facility] Work Phone: Start: 04-30-2024 End: 47-90-5858wzpnocwoiwFazzg M Lizzi DO Work Phone: [facility] Work Phone: Start: 04-30-2024 End: 67-89-9034Klrigox encounter procedureJared Veronica DO Work Phone: [facility] Work Phone: Start: 04-30-2024 End: 36-11-9708Elvhe Lizzi DO Work Phone: [facility] Work Phone: Start: 04-26-2024 End: 53-79-9840Pmkeakt nursing facility care/day 25 minutesThkhurram Gabriel DPM Work Phone: Dr. 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) use of anticoagulantsStart: 04-23-2024 End: 97-39-1673htrwjzhdjnKnfvz M Lizzi DO Work Phone: [facility] Work Phone: Start: 04-23-2024 End: 51-88-5355Sladgcl encounter procedureJared Veronica DO Work Phone: [facility] Work Phone: Start: 04-23-2024 End: 42-74-2445Jjxdq Lizzi DO Work Phone: [facility] Work Phone: Start: 04-15-2024 End: 11-75-5771Xypuvcbbpo and management of inpatientAtheer R Moises TIDWELL [facility]: 55-66-9247Mzv-patient / Non-visitJared Veornica DO Work Phone: [facility] Work Phone: Start: 18-52-1584Brwfd Veronica DO Work Phone: [facility] Work Phone: Start: 04-13-2024 End: 01-56-0371Iwo-patient / Non-visitJared Veronica DO Work Phone: [facility] Work Phone: Start: 04-13-2024 End: 61-18-0169Njcyo Veronica DO Work Phone: [facility] Work Phone: Start: 19-10-9125Zgj-patient / Non-visitJared Veronica DO Work Phone: [facility] Work Phone: Start: 61-26-6191Prdyy Veronica DO Work Phone: firwetmoreh Physician [facility] Work Phone: Start: 04-03-2024 End: 40-42-3668Kcqygpl encounter procedureJared Veronica DO Work Phone: [facility] [place] Work Phone: Start: 04-03-2024 End: 07-23-4351Aozpk Veronica DO Work Phone: [facility] [place] Work Phone: Start: 04-03-2024 End: 07-93-4229jylexerdrlCaxrp M Veronica DO Work Phone: [facility] Work Phone: Start: 03-10-2024 End: 39-20-8598Fdakuthwat and management of inpatientOpal Ga DO Work Phone: [facility] [place] [facility] Work Phone: Start: 03-10-2024 End: 96-68-0823Aimsf Veronica DO Work Phone: [facility] [place] [facility] Work Phone: Start: 03-02-2024 End: 09-71-0438kaufeyieocByoezx R BuntingFacility:[facility] Hospitaltart: 03-02-2024 End: 42-70-2862Rqlqbuoq ReferredOpal Ga DO Work Phone: [facility] [place] Work Phone: Start: 02-21-2024 End: 09-87-1726Euhxygjoul and management of inpatientSmitali Burris MD Work Phone: strz ICU STEPDOWN TELEMETRY 4KComment on above: Longstanding persistent atrial fibrillation (HCC) (Primary Dx); Cardiomyopathy, unspecified type (HCC); Lumbar stenosis with neurogenic claudicationStart: 02-16-2024 End: 02-55-7854ayhertshseMJSGCDMInova Fairfax Hospital AmbulatoryStart: 02-16-2024 End: 10-20-2477Mhhgogvzl for preprocedural cardiovascular examinationInova Fairfax Hospital AmbulatoryStart: 02-16-2024 End: 82-81-5632Ziiwyn outpatient visit 25 minutesMass[facility] DO Work Phone: [facility]Com[facility] on above:Preop cardiovascular exam; Heart failure, NYHA class 2; Chronic atrial fibrillation (Multi); 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; Primary hypertension; Mixed hyperlipidemia; BMI 30.0-30.9,adult; Former smokerStart: 02-16-2024 End: 11-98-7167Kudwqpi encounter statusTavo Mcintyre DO Work Phone: [facility] CenterStart: 06-85-4198Npb- patient / Non-visitEdmondamadou Ga DO Work Phone: [facility] Work Phone: Start: 02-13-2024 End: 82-15-0018Dxozvnwiw for other preprocedural examinationOpal Ga DO Work Phone: [facility] Hospitaltart: 02-13-2024 End: 61-61-5660Fpuggpg encounter procedureOpal Ga DO Work Phone: [facility] Work Phone: Start: 12-30-2023 End: 11-73-2926Qlgyhuy encounter procedureOpal Ga DO Work Phone: [facility] [place] Work Phone: Start: 12-27-2023 End: 04-19-0899hlubsuybkzItrhmgcoyReg[facility] Work Phone: Start: 12-27-2023 End: 16-38-7328Vszuhbm encounter procedureUnc Health [facility] Work Phone: Start: 10-24-2023 End: 50-44-7831eleytymczfJiydcbi Vytautas Giedraitis MDFacility:PM [facility] Start: 10-10-2023 End: 53-33-2988zziaqplutpFobrvch Vytautas Giedraitis MDFacility:[facility] [place] Start: 09-21-2023 End: 61-96-4571zbwvqutypqGP Opal Ga Work Phone: [facility] Work Phone: Start: 09-21-2023 End: 32-35-1896Lpjphbu encounter procedureDO Opal Ga Work Phone: [facility] Work Phone: Start: 09-12-2023 End: 70-33-2440gctyrrptcuVC Opal Ga Work Phone: [facility] Work Phone: Start: 09-12-2023 End: 84-05-0003Wdozrnm encounter procedureDO Opal Ga Work Phone: [facility] [place] Work Phone: Start: 07-19-2023 End: 51-99-8344Uarazsx encounter procedureDO Opal Ga Work Phone: [facility] [place] Work Phone: Start: 07-13-2023 End: 21-99-4969Bcyevq outpatient visit 25 minutesBeckiscott Whitmore Francisco Javier Work Phone: uh Unc HealthComment on above:Chronic atrial fibrillation (Multi); Essential hypertension, benign; Heart failure, NYHA class 2 (Multi); Hyperlipidemia, unspecified hyperlipidemia typeStart: 03-18-2023 End: 30-01-7840xmrcdgeqklCbors Kuns Other Qwilt Other Start: 75-65-5056Xjytqu outpatient visit 25 minutes Opal [facility] [place]Start: 12-31-2022 End: 25-86-9817emipaseqnlUsezg Kuns Other Qwilt Other Start: 60-05-1840Jtqcvltur encounterOpal [facility] CastaliaStart: 12-06-2022 End: 30-15-1680bpmgyljjzpIcfou Kuns Other noStorwize Other Start: 42-21-4298Otqampmue encounterOpal SparksRu [facility] CastaliaStart: 11-30-2022 End: 18-02-2380pkhgoohdglDiqzk Kuns Other nochildren[facility] brettapproved Other Start: 21-60-2337Dgfupremg encounterBryamadou [facility] CastaliaStart: 74-98-8495mkwxxwhlfaDBLGAZR HALKER .Facility:H1 Start: 09-15-2022 End: 68-65-0299bxuatijxxiAuxwi Kuns Other [place] brettapproved Other Start: 37-97-5008Xzvoir outpatient visit 15 minutes Opal [facility] CastaliaStart: 81-32-6344Qdngl UpdateOpal Ga Work Phone: [phone]-Uurgo [facility] DO Work Phone: Start: 55-90-1215Fdgmdvzkv encounterBryamadou VenessaG Family [facility] CastaliaStart: 09-08-2022 End: 36-53-2040gexpmpjjzkHI Opal Ga Work Phone: [facility] Work Phone: Start: 09-08-2022 End: 99-56-8471Usaoqth encounter procedureDO Opal Ga Work Phone: [facility] [place] Work Phone: Start: 96-73-7190Pe RenewalOpal Sparkss Work Phone: [phone]-Krjmn [facility] DO Work Phone: Start: 07-08-2022 End: 75-27-5287burntgailhZDBXPNCVHLPX LAKSHMIPATHY .Facility:R7Doqrh: 07-07-2022 Office outpatient visit 15 minutesOpal Sparkss Work Phone: [phone]-Vgsgl [facility] DO Work Phone: Start: 16-04-6558bdjebwpjuwIq. Bryan Keith Tjmyranda Facility:[id number]: 06-07-2022 End: 59-98-5824hacboghbkmZfqfz Kuns Other FuelFilmchildren[facility] mercy [facility] brettapproved Other Start: 01-62-4147Bttffo outpatient visit 25 minutes Opal TjmyrandaReece [facility] CastaliaStart: 06-01-2022 End: 48-67-1986mzpcngbfcwEhwsr Kuns Other FuelFilmchildren[facility] mercy [facility] brettapproved Other Start: 56-07-2306Dcczqxsds encounterEdmondamadou GaReece [facility] CastaliaStart: 05-13-2022 End: 22-17-3476blxasfrnnqRFUZYHZH MURPHYFacility:I0Uyait: 05-11-2022 End: 84-47-0498wyuosryihiTquaq Kuns Other FuelFilmchildren[facility] mercy [facility] brettapproved Other Start: 36-83-8354Acpnmdwks encounterEdmondamadou GaBoston [facility]'s Hospital CastaliaStart: 04-15-2022 End: 19-92-9158ptkcxhgyljEY TROY BRAMBILA .Facility:T4Gahzj: 04-12-2022 End: 37-53-6095dfzzdihotvPR Bryan Kuns Work Phone: [facility] Work Phone: Start: 04-12-2022 End: 68-63-1817Hqjpcepmqj RecurringDO Opal Ga Work Phone: [facility] [place] Work Phone: start: 03-30-2022 End: 66-54-7417oujgtqyvblEH TROY BRAMBILA .Facility:W7Pfpry: 86-67-8228Mc RenewalOpal Ga Work Phone: [phone]-Njhmd [facility] DO Work Phone: Start: 21-07-9115mcfwtmhqezRjewyh Ibrahim Facility:[id number]: 06-12-0715bvuvelyzdhYnmbulatoryMs. Enedelia GomezFacility: Start: 19-81-7404Hsuybll encounter procedureOpal Ga Work Phone: [phone]-Ljkxx [facility] DO Work Phone: Start: 44-61-9461Yiqfu UpdateOpal Ga Work Phone: [phone]-Oypci [facility] DO Work Phone: Start: 59-10-7813Yibfyvdfdv RecurringDO Opal Ga Work Phone: [facility] [place] Work Phone: start: 03-11-2022 End: 57-58-6110uuutegzfaaPE Opal Ga Work Phone: [facility] Work Phone: Start: 03-11-2022 End: 89-32-8508Acrools encounter procedureDO Opal Ga Work Phone: [facility] [place] Work Phone: Start: 79-97-0720HGL, Provider: Enedelia Mix, Status: Pen, Time: 2:30 PMOpal Ga Work Phone: [phone]-Bmbfe [facility] DO Work Phone: Start: 32-14-4858Gqetbx outpatient visit 25 minutes Opal Ga Work Phone: [phone]-Dzfos [facility] DO Work Phone: Start: 07-19-0655Kgukvpj encounter procedureOpal Sparkss Work Phone: [phone]-Oqkew [facility] DO Work Phone: Start: 51-07-9548eodrcaapdwKqDane Gomez Facility:[id number]: 03-09-2022 End: 36-14-8577izfbtdrnyuCevcm Kuns Other noStartupeando Other Start: 18-79-5344Tajody outpatient visit 15 minutes Opal SparksmyrandaReece Family [facility] CastaliaStart: 03-04-2022 End: 19-59-3587zjcwxknzahWylqd Kuns Other nochildren[facility] brettapproved Other Start: 31-03-5072Xgjsptzew encounterBryamadou DailyBoston Children's Hospital CastaliaStart: 44-85-4144Hd RenewalBryan P Kuns Work Phone: [phone]-EbbibEssentia [facility] DO Work Phone: Start: 03-03-2022 End: 03-97-1102lpvadmcbkjOoclc Kuns Other [place] brettapproved Other Start: 47-96-5593Asshlyobb encounterOpal DailyReece [facility] CastaliaStart: 02-18-2022 End: 77-48-3884scfehxkqffXO TROY VelaFacility:F5Trrpx: 07-64-3193Op RenewalBryan P Kuns Work Phone: [phone]-VcspqChildren'S [place] 250 DO Work Phone: Start: 02-09-2022 End: 43-66-5463dssyfadeaiRpsjp Kuns Other Junk[employer]Junk brettapproved Other Start: 15-53-3957Agznwn outpatient visit 25 minutes Opal SparksmyrandaReece [facility] CastaliaStart: 01-13-2022 End: 27-34-6048gsqmjdigkeUzezz Kuns Other Storwize Other Start: 32-22-0049Dfxkmhhny encounterOpal Coleman [facility] CastaliaStart: 53-93-2462ppowptryzvIv. Opal Ga Facility:[id number]: 66-15-8356dwcgyqikteAtreib IbrahimFacility:[id number]: 53-43-7378kvhrmwzaekQr. Opal GaFacility:[id number]: 01-09-2022 End: 62-58-5668Mmpbgomzat and management of inpatientDO Opal Ga Work Phone: [facility] [place] [facility] SurgStart: 01-07-2022 End: 77-22-2573jzxpzbfdfmVhnnb Kuns Other Qwilt Other Start: 91-20-8768Ccwret outpatient visit 25 minutes Opal GaReece [facility] CastaliaStart: 12-25-2021 End: 97-80-1235vwdgifvezfYpesm Kunmyranda Other Qwilt Other Start: 41-88-0221Fzpqhhrhh encounterOpal GaReece [facility] CastaliaStart: 12-17-2021 End: 42-78-9272glbneucptkWD TROY BRAMBILA .Facility:C6Nggbu: 12-17-2021 End: 37-50-4493cvpjzqqmgaTX Opal Ga Work Phone: [facility] Work Phone: Start: 12-17-2021 End: 74-28-1396Osfwiii encounter procedureDO Opal Ga Work Phone: [facility] [place]Start: 12-01-2021 End: 54-44-8188abayjnhekaYW TROY S BRAMBILA .Facility:G1Tkbju: 11-12-2021 End: 59-54-3695olaexryndgFF NELSY GAFacility:G4Ofakm: 10-12-2021 End: 31-54-3981bklmapvckcCuuaj Kuns Other Junk4Junk brettapproved Other Start: 43-64-7196Nawlzu outpatient visit 15 minutes Op[facility] [place]Start: 09-28-2021 End: 70-55-6649kpfxqidtqdNocdi Kuns Other FuelFilmchildren[facility] mercy [facility] brettapproved Other Start: 64-25-4291Rpfjeqscl encounterOpal Coleman [facility] CastaliaStart: 09-28-2021 End: 70-35-8610Dgnzueesxb RecurringDO Opal Sparksmyranda Work Phone: [facility] Therapy [place]Start: 09-11-2021 End: 95-51-4872gknngdjxbxPclvh Kuns Other FuelFilmchildren's mercy [facility] brettapproved Other Start: 50-04-4926Ihrkabe evaluation of patient and reportOpal GaReece Family [facility] CastaliaStart: 78-97-0199Bygkvaazz encounter Opal GaReece [facility] Medicine [place]kyStart: 09-10-2021 End: 47-74-0738gtkwcmtvikLN BRETT KUNSaint [facility] Medical Center brettapproved Other Start: 09-04-2021 End: 22-01-0695amjgauvdqsFcfnd Kuns Other [place] brettapproved Other Start: 72-14-8398Vpokjksag encounterOpal Coleman [facility] CastaliaStart: 08-31-2021 End: 97-43-4014nuoccekfoqFalog Kuns Other Qwilt Other Start: 19-12-3225Dqgwub outpatient visit 25 minutes Op[facility] [place]Start: 08-17-2021 End: 35-76-8365tconzgudlcJX TROY S МАРИНА .Facility:B2Voxng: 08-13-2021 End: 10-54-6948nxuuxtaulhYK TROY Myranda BRAMBILA .Facility:M0Wyigr: 28-84-6880Thgghf outpatient visit 15 minutesBryamadou Ga Work Phone: [phone]-JxfsfBuff[facility] 250 DO Work Phone: Start: 85-12-4180ccawymkhxrMnDane Parker Daily Facility:[id number]: 07-28-2021 End: 08-35-1937pljyltelqoLR TROY Whitmore BRAMBILA .Facility:V2Bxdwg: 05-25-2021 End: 06-21-0793lwyejtginvZazgh Kuns Other noStorwize Other Start: 05-05-5310Ahqwytaty encounterOpal CliffordG Family Medicine CastaliaStart: 02-19-0063By RenewalOpal Ga Work Phone: [phone]-[place]vn[place] [address] DO Work Phone: Start: 03-11-2021 End: 34-77-1666stntoiovujEkhxf Kuns Other Qwilt Other Start: 51-57-9086Kogskkthj encounterOpal Coleman [facility] CastaliaStart: 03-05-2021 End: 99-26-2100mzgnvuupyqMwdjj Kuns Other noStorwize Other Start: 37-12-4076Moaaptjik encounterOpal CliffordG Family Medicine CastaliaStart: 97-14-2534Mm RenewalOpal Sparkss Work Phone: [phone]-SiwocNew [facility] 250 DO Work Phone: Start: 01-19-2021 End: 89-35-6509xadeozymhgYyayx Kuns Other Qwilt Other Start: 57-30-0847Dapvld outpatient visit 25 minutes Opal GaFPG Family Medicine CastaliaStart: 49-17-7466Ml RenewalOpal Myers Daily Work Phone: [phone]-Axuly [facility] DO Work Phone: Start: 68-08-0532By RenewalOpal Sparksmyranda Work Phone: [phone]-Wzddg [facility] [place] Work Phone: Start: 04-50-8421Ohglxs outpatient visit 15 minutes Opal Ga Work Phone: [phone]-Dhwrc [facility] DO Work Phone: Start: 58-74-1077Fhjtlix encounter procedureBryamadou Ga Work Phone: [phone]-Atptg [facility] DO Work Phone: Procedures DateProcedureProcedure DetailPerforming ClinicianStart: 50-59-8492Gaogw culture Opal Ga DO Work Phone: Start: 44-93-0350Xljmv cultureOpal Ga DO Work Phone: Start: 34-26-4586YP cervical spine without contrast PHYSICIAN NO FAMILYStart: 13-69-0983CC of head without contrastPHYSICIAN NO FAMILYStart: 49-35-2923Zswng chest X-rayPHYSICIAN NO FAMILYStart: 12-89-1087CZQ of lumbar spine with contrastPHYSICIAN NO FAMILYStart: 03-56-1877Qrgh energy X- ray absorptiometryPHYSICIAN NO FAMILYStart: 23-68-1019RP of head without contrastOpal Ga DO Work Phone: Start: 25-47-0884YH of lumbar spine without contrast Opal Ga DO Work Phone: Start: 50-55-0652H-ray of lumbar spine, six views including bending viewsBryan Kuns DO Work Phone: Start: 12-66-2124Fjwdh cultureAmanda Kiera [employer] T[employer] ASSEMBLER Work Phone: Start: 93-30-4895WK of head without contrastAmanda Kiera AIR TANK ASSEMBLER Work Phone: Start: 54-61-9043Plhkb chest X-rayAmanda Kiera AIR T[employer] ASSEMBLER Work Phone: Start: 92-74-2800Xmlunrnp identified in Blood by CultureBryan Tjs DO Work Phone: Start: 02-16-9690Pqwtq Screen MRSA/MSSABryan Tjs DO Work Phone: Start: 51-67-6436Forzw cultureAmanda Kiera AIR TANK ASSEMBLER Work Phone: Start: 43-50-1456Dewfxc Kiera [employer] T[employer] ASSEMBLER Work Phone: Start: 10-06-2024 End: 27-11-7928RG of head without contrastAmanda Kiera AIR TANK ASSEMBLER Work Phone: Start: 05-06-1243TW cervical spine without contrast Melvi Kiera [employer] T[employer] ASSEMBLER Work Phone: Start: 01-52-0251SH of facial bones without contrast Melvi Kiera [employer] T[employer] ASSEMBLER Work Phone: Start: 79-72-1365IU of head without contrastAmanda Kiera AIR TANK ASSEMBLER Work Phone: Start: 03-37-7586Yaiof cultureAmanda Kiera AIR TANK ASSEMBLER Work Phone: Start: 43-76-6648Spqtf cultureAmanda Kiera AIR TANK ASSEMBLER Work Phone: Start: 47-62-3433Fgvdk chest X-rayAmanda Kiera AIR TANK ASSEMBLER Work Phone: Start: 70-34-2924Bqxyngc microbial cultureAmanda Kiera AIR TANK ASSEMBLER Work Phone: Start: 82-86-7468Ccfpcdkpo microbial cultureAmanda Kiera AIR TANK ASSEMBLER Work Phone: Start: 12-83-4019Cqrk stain microscopyAmanda Kiera AIR TANK ASSEMBLER Work Phone: Start: 96-65-0088QWRIHJR CULTUREFredric H Itzkowitz DO Work Phone: Start: 95-21-9950PZHQFPGKF CULTUREFredric H Itzkowitz DO Work Phone: Start: 93-10-5413KA of lower leg without contrast Meliv Kiera [employer] T[employer] ASSEMBLER Work Phone: Start: 12-66-1861QO of abdomen and pelvis without contrastAmanda Kiera AIR TANK ASSEMBLER Work Phone: Start: 62-23-5573Zfmwd Screen MRSA/MSSAAmanda Kiera AIR TANK ASSEMBLER Work Phone: Start: 07-66-9525Mqfwvnhjl for occult blood in feces Melvi Kiera [employer] T[employer] ASSEMBLER Work Phone: Start: 58-70-2220Wuvwdc Kiera AIR TANK ASSEMBLER Work Phone: Start: 68-55-6462Tqboi chest X-rayAmanda Kiera AIR TANK ASSEMBLER Work Phone: Start: 02-20-1222Qpugpatk identified in Blood by CultureAmanda Kiera AIR TANK ASSEMBLER Work Phone: Start: 72-98-8750Kfjrkviqt ID (NA Multiplex Assay) Melvi Kiera [employer] T[employer] ASSEMBLER Work Phone: Start: 22-51-1458Iniku cultureAmanda Kiera AIR TANK ASSEMBLER Work Phone: Start: 07-12-2024 End: 03-84-9975Oqvpy nucleic acid assayAmanda Kiera AIR TANK ASSEMBLER Work Phone: Start: 75-68-5836Ttombk Kiera [employer] TANK ASSEMBLER Work Phone: Start: 30-30-8470Fdxxq cultureJared Veronica DO Work Phone: Start: 14-90-7450MJ pre/post mri xrayJared Veronica DO Work Phone: Start: 71-41-3704AV lumbar spine wo conJared Veronica DO Work Phone: Start: 04-03-2024 End: 27-61-5598Wgttp Veronica DO Work Phone: Start: 84-38-7943Msdgdvyc identified in Blood by CultureOpal Ga DO Work Phone: Start: 95-53-7488Lccnytajxfi Panel (PCR)Opal Ga DO Work Phone: Start: 42-82-3235Glnqv cultureOpal Ga DO Work Phone: Start: 51-61-0171Ynfgn Veronica DO Work Phone: Start: 45-98-2188Shddb chest X-rayOpal Ga DO Work Phone: Start: 17-11-7469Oxclh gap [Moles/Vol]Gustabo Diglio PA Work Phone: Start: 05-35-4809Jkqbm metabolic panel calcium total Gustabo Diglio PA Work Phone: Start: 24-47-8007NBNSQFPKBN FILTRATION RATE, ESTIMATED Gustabo Diglio PA Work Phone: Start: 47-02-7537Mflhzr ecg 1-3 leads w/interpretation & reportUnknown Provider ResultStart: 90-43-9825Pjmhbr ecg 1-3 leads w/interpretation & reportUnknown Provider ResultStart: 38-02-8840Inmqz gap [Moles/Vol]Gustabo Diglio PA Work Phone: Start: 05-27-0942Uflls metabolic panel calcium total Gustabo Diglio PA Work Phone: Start: 39-49-4290ETVIMCLQMF FILTRATION RATE, ESTIMATED Gustabo Diglio PA Work Phone: Start: 19-58-7165Thqifcdub virus A and B RNA and SARS-CoV-2 (COVID-19) N gene panel - Respiratory specimen by SMIHTA with probe detectionRanda King MD Work Phone: Start: 69-42-0511SKHGFCL, SEPSISRanda King MD Work Phone: Start: 06-61-8371Zcqvvjbd identified in Blood by Aerobe cultureRanda King MD Work Phone: Start: 08-38-7005Gwnzw count complete automatedOlfannie King MD Work Phone: Start: 28-80-5222Rxivbbb bacterial blood aerobic w/id isolatesOlfannie King MD Work Phone: Start: 00-81-8895DQUDJZS, SEPSISOlfannie King MD Work Phone: Start: 84-64-2740Upzxf gap [Moles/Vol]Gustabo Diglio PA Work Phone: Start: 06-60-1965Qetfw metabolic panel calcium total Gustabo Diglio PA Work Phone: Start: 35-44-6469QYWJRWAKFE FILTRATION RATE, ESTIMATED Gustabo Diglio PA Work Phone: Start: 23-72-2965Ylglti and language therapy regime Randa King MD Work Phone: Start: 80-37-9987Fcdzhrbuxk exam chest single view Randa King MD Work Phone: Start: 02-46-1326Ht head/brain w/o contrast material Randa King MD Work Phone: Start: 68-68-2580Ndkm bld gluc mntr dev cleared fda spec home useAlexis Diglio PA Work Phone: Start: 41-29-5769Amoev gap [Moles/Vol]Gustabo Diglio PA Work Phone: Start: 28-21-3182Lvngj metabolic panel calcium total Gustabo Diglio PA Work Phone: Start: 84-49-3154CNGRHQHKIB FILTRATION RATE, ESTIMATED Gustabo Diglio PA Work Phone: Start: 13-26-4880Ttxw tthrc r-t 2d w/wom-mode compl spec&colr Baldev King MD Work Phone: Start: 02-23-2024 End: 53-18-3664Gflafl ecg 1-3 leads w/interpretation & reportUnknown Provider ResultStart: 89-26-7558Gbteb gap [Moles/Vol]Gustabo Diglio PA Work Phone: Start: 46-73-0267Oopqk metabolic panel calcium total Gustabo Diglio PA Work Phone: Start: 56-80-4543FJTHNVCTHH FILTRATION RATE, ESTIMATED Gustabo Diglio PA Work Phone: Start: 74-75-0376Hzilgq ecg 1-3 leads w/interpretation & reportUnknown Provider ResultStart: 78-39-6766Duolgxgnpxe peptideOlfannie King MD Work Phone: Start: 02-22-2024 End: 76-09-9035Cwadft ecg 1-3 leads w/interpretation & reportUnknown Provider ResultStart: 51-99-8051Gvyd bld gluc mntr dev cleared fda spec home useAlexis Diglio PA Work Phone: Start: 13-41-2305Luybi gap [Moles/Vol]Gustabo Diglio PA Work Phone: Start: 02-10-0025Igltz metabolic panel calcium total Gustabo Diglio PA Work Phone: Start: 71-58-9494ETOTHTZHFN FILTRATION RATE, ESTIMATED Gustabo Diglio PA Work Phone: Start: 31-60-8897Rrcd bld gluc mntr dev cleared fda spec home useAlexis Diglio PA Work Phone: Start: 52-59-1041Ljmyzm ecg 1-3 leads w/interpretation & reportUnknown Provider ResultStart: 93-94-9954Kbhxy count hemoglobinSttyrone Whittington Parvez PA-C Work Phone: Start: 26-56-0760Fsprk spine 1 view specify level Selmerna Burris MD Work Phone: Start: 02-21-2024 End: 68-32-1004Fmrkmicpern posterior/posterolateral lumbarSelvon Moshe Burris MD Work Phone: Start: 02-21-2024 End: 13-63-1004Ofcljbkbz spine surgery local from same incisionSmitali Burris MD Work Phone: Start: 02-21-2024 End: 94-98-1631Ghh facetectomy & foramotomy [address] [facility] Work Phone: Start: 44-35-3538Ygovtklp screenSeljacinton [address] [facility] Work Phone: Comment on above:Performed at [facility] [address] [place] [address]Icizh: 27-07-6681Joxly typing serologic aboAlexis Diglio PA Work Phone: Start: 85-12-0237Hyk routine ecg w/least 12 lds w/i&r Tavo Mcintyre DO Work Phone: Start: 35-23-7277AZ of right hipDO Opal Sparksmyranda Work Phone: Start: 70-77-6183Dngyo X-ray of right hipDO Opal Daily Work Phone: Start: 61-79-3742Yqnyf cultureDO Opal Daily Work Phone: Start: 54-88-1960Bphaj culture for bacteria, including anaerobic screenDO Opal Ga Work Phone: start: 23-03-9150Plfrd chest X-rayDO Opal Ga Work Phone: Start: 92-74-0315QZV of lumbar spine with contrastDO Opal Ga Work Phone: Start: 91-91-1368Vpcblwy ultrasonography of bilateral carotid arteriesDO Opal Ga Work Phone: Start: 62-36-5890Fmumqrzwlnsvweb of bilateral kidneys DO Opal Ga Work Phone: Start: 61-39-7583RCQL Antigen (LFIA)DO Opal Ga Work Phone: Start: 13-26-4393Siibi chest X-rayDO Opal Ga Work Phone: Start: 54-95-5286Gnmpicvw tomography of thoracic spine without contrastDO Opal Ga Work Phone: Start: 86-95-9022RO cervical spine without contrastDO Opal Ga Work Phone: Start: 57-70-7530NH of head without contrastDO Opal Ga Work Phone: Start: 65-58-7835AG of lumbar spine without contrastDO Opal Ga Work Phone: Start: 21-49-9461Phopy colonoscopyOpal Ga Work Phone: Comment on above:[facility];Arthroplasty of kneeOpal P Tjs Work Phone: Comment on above:2016 and 2020;Arthroscopy of shoulder Opal P Tjs Work Phone: Cardiac catheterizationEdmondamadou P Tjs Work Phone: Epidural steroid injectionOpal P Tjs Work Phone: History of excision of lamina of lumbar vertebra for decompression of spinal cordHx of decompressive lumbar laminectomyAmanda Kiera AIR TANK ASSEMBLER Work Phone: Comment on above:2011-with tumor resectionHistory [...] Work Phone: Plan of Treatment DateCare ActivityDetailAuthorStart: 58-02-3096KjfdeSt. Francis Hospitaltart: 50-87-2342GkbpvhdmfBlanchard Valley Health System [facility] Hospitaltart: 01-17-5682Zoald [facility] Limatart: 12-27-2024 Bacteria identified in Urine by CultureCity Hospitaltart: 47-54-0733LwyvwwcvzBlanchard Valley Health System [facility] Hospitaltart: 12-12-2024 Hospital admissionBlanchard Valley Health System [facility] Hospitaltart: 23-63-3715Kyrhjswp identified in Urine by CultureSheltering Arms Hospital Start: 10-25-1689RqohcSt. Francis Hospitaltart: 10-10-2024 [facility]: 10-06-2024 End: 11-88-8956GstggqhmgBlanchard Valley Health System [facility] Hospitaltart: 03-75-3467Awgibpga admissionBlanchard Valley Health System [facility] Hospitaltart: 63-15-9437BpjlheeroBlanchard Valley Health System [facility] Hospitaltart: 90-05-2245Lefdbyve identified in Urine by CultureCity Hospitaltart: 11-99-9749EprixSt. Francis Hospitaltart: 59-22-7782lvezgvsmuaWxdbdlwdimCflrcssa:EU Ameena Start: 02-70-0682EscbviezmBlanchard Valley Health System [facility] Hospitaltart: 83-95-9825HvjqaypvqCleveland Clinic Euclid Hospital CenterStart: 69-94-4275WuurbduyyCleveland Clinic Euclid Hospital CenterStart: 72-12-8313YahtfqzhxCleveland Clinic Euclid Hospital CenterStart: 07-18-2024 End: 01-29-3193Nsigfto encounter alyvivwer24/14/2025 10:00 AM EDT Office Visit [place] [id number] [facility] [address] [place] [id number] Tavo Mcintyre DO [address] [place] [address] [facility] HospitalStart: 05-61-6208AvfyqwvtkBlanchard Valley Health System [facility] Hospitaltart: 07-17-2024 End: 41-51-8887YsxpoxnjrCleveland Clinic Euclid Hospital CenterStart: 22-88-3290Vplfbsrchiogt metabolic 1999 panel - Serum or PlasmaCleveland Clinic Euclid Hospital CenterStart: 07-16-2024 End: 01-64-6820QnxpfojhjCleveland Clinic Euclid Hospital CenterStart: 46-60-1409Xfxdzqmsc microbial cultureCleveland Clinic Euclid Hospital CenterStart: 65-43-3822Ppvexfhguezgh metabolic 1999 panel - Serum or PlasmaCleveland Clinic Euclid Hospital CenterStart: 2024 End: 90-82-3887WmuxixmhgCleveland Clinic Euclid Hospital CenterStart: 10-46-4220Bolzvabw to infectious diseases physicianCleveland Clinic Euclid Hospital CenterStart: 07-14-2024 Comprehensive metabolic 1999 panel - Serum or PlasmaCleveland Clinic Euclid Hospital CenterStart: 07-14-2024 End: 45-35-0105HlxfjaklvCleveland Clinic Euclid Hospital CenterStart: 82-80-5816Hahholslqnzaf metabolic 1999 panel - Serum or PlasmaCleveland Clinic Euclid Hospital CenterStart: 45-81-1180MusryaldqCleveland Clinic Euclid Hospital CenterStart: 07-12-2024 End: 10-48-5267SuzrrcuglCleveland Clinic Euclid Hospital CenterStart: 99-91-9238Qfwxtdzf admissionCleveland Clinic Euclid Hospital CenterStart: 63-19-3418Vbqtonqal culture of sputumCleveland Clinic Euclid Hospital CenterStart: 73-62-8555Vqfapjpu therapy procedureCleveland Clinic Euclid Hospital CenterStart: 58-05-0668Lrrxrrmr to occupational therapistBlanchard Valley Health System [facility] Hospitaltart: 24-55-5402Mvpsotfb to urologistBlanchard Valley Health System [facility] Hospitaltart: 08-24-3012Dmtnq culture [facility]tart: 07-12-2024 End: 62-76-3408KbtzkofgpBlanchard Valley Health System [facility] Hospitaltart: 07-12-2024 Hemoglobin.gastrointestinal [Presence] in StoolOhio Valley Surgical Hospital Start: 72-22-9109Guqczpwl of Right Lower Leg Skin, External ApproachBlanchard Valley Health System [facility] Hospitaltart: 61-29-0821Pfvfseanb of Infusion Device into Superior Vena Cava, Percutaneous ApproachBlanchard Valley Health System [facility] Hospitaltart: 70-28-5989VtimbbkakBlanchard Valley Health System [facility] Hospitaltart: 06-12-2024 End: 25-80-9070Hkikv [facility] Limatart: 03-15-2024 [facility] Hospitaltart: 19-90-4750ZftvxmdjkBlanchard Valley Health System [facility] Hospitaltart: 91-86-5124Pgseutpj identified in Blood by CultureBlood Culture [facility]tart: 05-96-0510Csfxnfki therapy procedure [facility]tart: 19-93-1702Jrrcgrdu to occupational therapistBlanchard Valley [facility] System [facility] Hospitaltart: 71-98-7204RlpnlbduyBlanchard Valley Health System [facility] Hospitaltart: 67-80-2406Akuqvycf admissionBlanchard Valley Health System [facility] Hospitaltart: 03-10-2024 End: 36-23-3988GrnrjkgewBlanchard Valley Health System [facility] Hospitaltart: 33-28-4088Plthxwu function panelBlanchard Valley Health System [facility] Hospitaltart: 78-63-0208Beubcuj Directive DiscussionAdvance Directive DiscussionCleveland Clinic [facility] Lodi Hospitaltart: 70-69-5669Bmrmra Wellness Visit (Medicare)Annual Wellness Visit (Medicare)[facility] HospitalNewsFixed [facility]: 25-42-6225Cujoy-19 Vaccine ( season)Covid- 19 Vaccine ()[facility] Hospitaltart: 38-25-8231JEDCM-19 Vaccine ()COVID-19 Vaccine ()[facility] HospitalNewsFixed [facility]: 51-86-9528VAUCE-19 Vaccine ( season)COVID-19 Vaccine ( season)[facility] CenterStpie town: 78-88-0672Yiyvmtrva vaccinationInfluenza Vaccine (#1)[facility] CenterStpie town: 80-38-3093Euzcxgulg vaccinationFlu vaccine (#1)[facility] HospitalStart: 07-13-2023 End: 88-41-6581Ttkyzrj aminotransferase [Enzymatic activity/volume] in Serum or Plasma by With P-5'-PAlanine Aminotransferase Lab Routine Hyperlipidemia, unspecified hyperlipidemia type Expected: 07/13/2023 (Approximate), Expires: 07/12/2024UnK[facility] Work Phone: Comment on above:Expected: 07/13/2023 (Approximate), Expires: 07/12/2024Start: 07-13-2023 End: 94-58-6527Klzzgness aminotransferase [Enzymatic activity/volume] in Serum or Plasma by With P-5'-PAspartate Aminotransferase Lab Routine Hyperlipidemia, unspecified hyperlipidemia type Expected: 07/13/2023 (Approximate), Expires: 07/12/2024UnK[facility] Work Phone: Comment on above:Expected: 07/13/2023 (Approximate), Expires: 07/12/2024Start: 07-13-2023 End: 61-00-3265Nisap metabolic 2000 panel - Serum or PlasmaBasic Metabolic Panel Lab Routine Chronic atrial fibrillation (Multi) Essential hypertension, benign Heart failure, NYHA class 2 (Multi) Hyperlipidemia, unspecified hyperlipidemia type Expected: 07/13/2023 (Approximate), Expires: 07/12/2024[facility] Service Area Work Phone: Comment on above:Expected: 07/13/2023 (Approximate), Expires: 07/12/2024Start: 07-13-2023 End: 51-82-1677Xmskq 1996 panel - Serum or PlasmaLipid Panel Lab Routine Hyperlipidemia, unspecified hyperlipidemia type Expected: 07/13/2023 (Approx imate), Expires: 07/12/2024UnK[facility] Work Phone: Comment on above:Expected: 07/13/2023 (Approximate), Expires: 07/12/2024Start: 07-13-2023 End: 29-34-8482Keafpmjqcpm peptide B [Mass/volume] in BloodB-Type Natriuretic Peptide Lab Routine Heart failure, NYHA class 2 (Multi) Expected: 07/13/2023 (Approximate), Expires: 07/12/2024[facility] Work Phone: Comment on above:Expected: 07/13/2023 (Approximate), Expires: 07/12/2024Start: 76-69-5453LGJ, Provider: Tavo Mcintyre, Status: Pen, Time: 9:40 AMFUV, Provider: Tavo Mcintyre, Status: Pen, Time: 9:40 AMMP-[facility] DO Work Phone: Start: 49-01-6679GbrzxpkyfmdodjfdLiqngrxapcsokd [facility] CenterStart: 75-84-5968FSTFK-19 Vaccine ( season)COVID-19 Vaccine ( season)[facility] Start: 42-86-9233ULC, Provider: Tavo Mcintyre, Status: Pen, Time: 9:20 AMFUV, Provider: Tavo Mcintyre, Status: Pen, Time: 9:20 AM[facility] [place] [address] DO Work Phone: Start: 79-38-4130XNDNXO MON, Provider: LEVAR MARES EVENT CREW TECHNICIAN 1,[id number], Status: Pen, Time: 10:30 [facility] MON, Provider: LEVAR MARES EVENT CREW TECHNICIAN 1,[id number], Status: Pen, Time: 10:30 AMMP-[facility]-[place] [address] DO Work Phone: Start: 01-37-3564DVL, Provider: Enedelia Mix, Status: Pen, Time: 2:30 PMFUV, Provider: Enedelia Mix, Status: Pen, Time: 2:30 PMMP-[facility] DO Work Phone: Start: 92-52-6173FwkhrvicyOhio Valley Surgical Hospital Start: 23-95-0108Khsrxyur to infectious diseases physicianBlanchard Valley Health System [facility] Hospitaltart: 28-19-2186Eeehoblr to neurologistBlanchard Valley Health System [facility] Hospitaltart: 03-86-3701Fuhpuoxp to Social ServicesBlanchard Valley [facility] System [facility] Hospitaltart: 69-00-7262Aigjzxqb admissionBlanchard Valley Health System [facility] Hospitaltart: 04-87-9017EcutjiwrdBlanchard Valley Health System [facility] Hospitaltart: 09-26-3244WSP, Provider: Tavo Mcintyre, Status: Pen, Time: 9:50 AMMP-[facility] DO Work Phone: Start: 29-84-6274FUT, Provider: Tavo Mcintyre, Status: Pen, Time: 9:30 AMFUV, Provider: Tavo Mcintyre, Status: Pen, Time: 9:30 AM-[facility]-[place] [address] DO Work Phone: Start: 16-80-3169Khkxhxeafpw Syncytial Virus (RSV) or age 60 yrs+ (1 - 1-dose 75+ series)Respiratory Syncytial Virus (RSV) or age 60 yrs+ (1 - 1-dose 75+ series)[facility]Start: 44-66-8255VGG High Risk: (Elderly (60+) or Population) (1 - 1-dose 75+ series)RSV High Risk: (Elderly (60+) or Population) (1 - 1-dose 75+ series)[facility] CenterStart: 35-97-3539BNN Vaccine (1 - 1-dose 75+ series)RSV Vaccine (1 - 1-dose 75+ series)[facility] Hospitaltart: 06-02-2016 Pneumococcal 65+ years Vaccine (2 of 2 - PPSV23 or PCV20)Pneumococcal 65+ years Vaccine (2 of 2 - PPSV23 or PCV20)[facility] HospitalStart: 06-02-2016 Pneumococcal Vaccine: 65+ Years (2 of 2 - PPSV23 or PCV20)Pneumococcal Vaccine: 65+ Years (2 of 2 - PPSV23 or PCV20)[facility]: 60-95-8752BYR patients and/or patients aged 60+ years (1 - 1-dose 60+ series)RSV patients and/or patients aged 60+ years (1 - 1-dose 60+ series)[facility]: 17-62-3944Hztvjidbjirt Vaccine: 50+ (1 of 1 - PCV)Pneumococcal Vaccine: 50+ (1 of 1 - PCV)[facility]: 13-92-2830Ahgallgy vaccine (1 of 2)Shingles vaccine (1 of 2)[facility]: 15-91-6529Vhcjgenn Vaccine (1 of 2)Shingrix Vaccine (1 of 2) [facility]: 97-61-0012Uvyxru Vaccines (1 of 2)Zoster Vaccines (1 of 2)[facility]: 32-32-6042Wgwbuikc ScreeningDiabetes ScreeningKettering Health Springfieldrt: 25-83-2324QJgB/Tdap/Td Vaccines (1 - Tdap) DTaP/Tdap/Td Vaccines (1 - Tdap)[facility]: 94-41-7873WXwU/Tdap/Td vaccine (1 - Tdap)DTaP/Tdap/Td vaccine (1 - Tdap)[facility]: 35-79-3928Fssxp microalbumin profileDTaP,Tdap,Td Vaccine (1 - Tdap)[facility]: 53-21-3452Btjxmqv ScreeningAnxiety ScreeningKettering Health Springfieldrt: 88-99-4931Cycqabycsu ScreeningDepression ScreeningKettering Health Springfieldrt: 37-15-7335Gqdjdgxd mellitus screeningDiabetes ScreeningUnGlenbeigh Hospital: 12-83-3636Jyltrwbntp Screen Depression ScreenBon [facility]: 21-29-0745Gtmkx panelLipidsBon [facility]: 26-32-5122Icoizdwdkw measurementCreatinine Level [facility]: 76-44-3025Ypgeo panelLipid Panel [facility]: 05-11-1942Medicare Annual Wellness Visit Medicare Annual Wellness Visit (AWV)[facility]: 91-50-6600Iwkbdguss measurementPotINTEGRIS Southwest [facility] Center – [place] Start: 88-41-9057Dsbearr stimulating hormone measurementTSHarper County Community Hospital – BuffaloAEROBIC CULTUREAEROBIC CULTURE Lab Routine 2024 12:15 PM EDTNOAZ Healthcare Work Phone: ANAEROBIC CULTUREANAEROBIC CULTURE Lab Routine 2024 12:15 PM EDErlanger Bledsoe HospitalAnion gap measurementGenesis Hospital Work Phone: Bacteria identified in Blood by Aerobe cultureBon [facility]lower HospitalBacteria identified in Urine by CultureUrine Culture [facility] End: 98-96-1194Bshoa metabolic 1999 panel - Serum or PlasmaBasic Metabolic Panel Lab Routine Daily for 1 Weeks starting 02/22/2024 until 02/28/2024, 6 completed Bon [facility] HospitalComment on above:Daily for 1 Weeks starting 02/22/2024 until 02/28/2024, 6 completedBasophil countGenesis Hospital Work Phone: Basophil percent differential countGenesis Hospital Work Phone: Blood culture for bacteria, including anaerobic screen Blood CultureOhio Valley Surgical HospitalCalcium [Mass/volume] in Serum or PlasmaGenesis Hospital Work Phone: Carbon dioxide, total [Moles/volume] in Serum or PlasmaGenesis Hospital Work Phone: Chloride [Moles/volume] in Serum or PlasmaGenesis Hospital Work Phone: Comprehensive metabolic 1999 panel - Serum or Plasma [facility] HospitalCreatinine and Glomerular filtration rate.predicted panel - Serum, Plasma or BloodGenesis Hospital Work Phone: CT Lumbar spine WO [facility]CT Unspecified body region WO [facility] Debridement nail any method 1-5DEBRIDEMENT OF NAIL(S), 1-5 Procedures Routine Pain due to onychomycosis of toenail of left foot Pain due to onychomycosis of toenail of right foot Localized edema Decreased pedal pulses USP (current) use of anticoagulants Ordered: 04/26/2024P [facility] Work Phone: Comossi on above:Ordered: 04/26/2024Eosinophil percent differential countCleveland Clinic Euclid Hospital Ctr Work Phone: Eosinophils [#/volume] in [facility] Work Phone: Erythrocyte mean corpuscular volume determination [facility] Work Phone: Erythrocytes [#/volume] in BloodC[facility] Clinic [facility] Work Phone: Glucose [Mass/volume] in Serum or PlasmaC[facility] Clinic [facility] Work Phone: Glucose [Mass/volume] in Serum or PlasmaPOCT Glucose Point of Care Testing STAT As Needed until discontinued starting 02/21/2024on [facility] [employer] Work Phone: comment on above:As Needed until discontinued starting 02/21/2024Glucose [Mass/volume] in Serum or PlasmaPOCT Glucose Point of Care Testing STAT As Needed until discontinued starting 02/21/2024[facility] on above:As Needed until discontinued starting 02/21/2024 Hematocrit [Volume Fraction] of [facility] Work Phone: Hemoglobin [Mass/volume] in [facility] Work Phone: Hemoglobin distribution, width determinationC[facility] Clinic [facility] Work Phone: Leukocytes [#/volume] in [facility] Work Phone: Lymphocyte countC[facility] Clinic E[facility] Hospital [facility] Work Phone: Lymphocyte percent differential countC[facility] Clinic [facility] Work Phone: Mean corpuscular hemoglobin concentration determinationC[facility] Clinic [facility] Work Phone: Mean corpuscular hemoglobin determinationC[facility] Clinic [facility] Work Phone: Measurement of renal functionC[facility] Clinic [facility] Work Phone: Monocyte countC[facility] Clinic [facility] Hospital [facility] Work Phone: Monocyte percent differential countC[facility] Clinic [facility] Work Phone: MR Lumbar spine WO and W contrast [facility] CenterMR Lumbar spine WO and W contrast [facility] Medical CenterNeutrophil countC[facility] Clinic [facility] Work Phone: Neutrophil percent differential countC[facility] Clinic [facility] Work Phone: Oxygen therapy [Minimum Data Set]Initiate Oxygen Therapy Protocol Respiratory Care Routine As Needed until discontinued starting 02/21/2024 [facility] on above:As Needed until discontinued starting 02/21/2024atient EducationC[facility] Clinic [facility] Work Phone: Patient referralC[facility] Clinic [facility] Work Phone: Platelet mean volume determinationC[facility] Clinic [facility] Work Phone: Platelets [#/volume] in BloodC[facility] Clinic [facility] Work Phone: Potassium [Moles/volume] in Serum or PlasmaC[facility] Clinic [facility] Work Phone: Sodium [Moles/volume] in Serum or PlasmaC[facility] Clinic [facility] Work Phone: Spirometry panelIncentive spirometry Respiratory Care Routine Every 2hr while awake until discontinued starting 02/21/2024 [facility] on above:Every 2hr while awake until discontinued starting 02/21/2024Urea nitrogen [Mass/volume] in Serum or PlasmaC[facility] Clinic E[facility]tr Work Phone: End: 95-40-7433Npxbutjpyc with Reflex to CultureUrinalysis with Reflex to Culture Lab Routine One Time for 1 Occurrences starting 02/25/2024 until 04/27/2023 [facility] on above:One Time for 1 Occurrences starting 02/25/2024 until 02/25/2024Urine [facility] HospitalXR Lumbar spine ViewsAdventHealth Tampa Immunizations Immunization DateImmunizationNotesCare CifmmwskFxkmnhca24-03-3209rxkhrodgv virus vaccine, unspecified formulationDO Opal Ga Work Phone: [facility]10-13-2023influenza, high dose seasonal, preservative-freeOpal Ga Other [facility]10-20-2022influenza, seasonal, injectableOpal Ga Other [facility]10-20-2022COVID-19 Moderna (BIvalent)Opal Ga Other [facility]10-20-2022Fluzone High-Dose Quadrivalent 0.7 ML Intramuscular Suspension Prefilled SyringeOpal P Daily Work Phone: [facility]12-15-2021Moderna COVID-19 Vaccine 100 MCG/0.5ML Intramuscular SuspensionBryan P Tjs Work Phone: [facility]03-24-2021Moderna COVID-19 Vaccine 100 MCG/0.5ML Intramuscular SuspensionBryan P Tjs Work Phone: [facility]03-01-2021COVID-19 Vaccine Moderna - Documentation Purposes OnlyOpal Ga Other [facility]02-24-2021Moderna COVID-19 Vaccine 100 MCG/0.5ML Intramuscular SuspensionBryan P Kuns Work Phone: [facility]02-08-2021Moderna COVID-19 Vaccine 100 MCG/0.5ML Intramuscular SuspensionEdmondan P Kuns Work Phone: [facility]10-17-2020Fluzone High-Dose Quadrivalent 0.7 ML Intramuscular Suspension Prefilled SyringeEdmondan P Tjs Work Phone: [facility]10-01-2020influenza, seasonal, injectableBryan P Kuns Work Phone: [facility]09-18-2019influenza, seasonal, injectableBryan Kuns Other [facility]09-16-2019Seasonal trivalent influenza vaccine, adjuvanted, preservative freeBryan P Kuns Work Phone: [facility]09-01-2019influenza virus vaccine, unspecified formulationBryan P Kuns Work Phone: [phone]-[place]howT[place] [address] [place] Work Phone: [phone]) [phone]qvzta, high dose seasonal, preservative-freeBryan P Kuns Work Phone: [facility]10-01-2018influenza, seasonal, injectableBryan Kuns Other [facility]09-01-2018influenza virus vaccine, unspecified formulationBryan P Kuns Work Phone: [phone]-OixszTodd Ville [address] DO Work Phone: [phone]jsrcv virus vaccine, unspecified formulationBryan P Kuns Work Phone: [phone]-ExxdjT[place] [address] DO Work Phone: [phone]pcws conjugate vaccine, 13 valent Opal P Kuns Work Phone: [phone]-KuldlTodd [place] [address] DO Work Phone: [phone] 40/XylocaineBryan Kuns Other [place] brettapproved Other Payers DatePayer CategoryPayerPolicy [id number]-vug [id number] Cross Blue Shield Managed CareBRONSON [facility] [id number] [id number] [facility] INDEMNITY .[id number]1268. [facility] [id number] .[id number] 1960Medicare [id number] .[id number] .1.027581.3.57[id number] .1.490987.3.57[id number] 2.16.840.1.003396.3.57[id number] 2.16.840.1.539875.3.57[id number] 2.16.840.1.766432.3.57[id number] 2.16.840.1.852816.3.57[id number] 2.16.840.1.865530.3.57[id number] 2.840.1.689635.3.57[id number] 2.840.1.899703.3.57[id number] 2.16840.1.229182.3.57[id number] 2.16.840.1.448562.3.57[id number] 2.840.1.177496.3.57[id number] 2.16.840.1.743919.3.57[id number] 2.16.840.1.255941.3.57[id number] 2.16.840.1.376961.3.57[id number] 2.16840.1.762659.3.57[id number] 2.16.840.1.362525.3.57[id number] 2.16.840.1.582522.3.57[id number] 2.16.840.1.750210.3.57[id number] 2.16.840.1.269964.3.57[id number] 2.16.840.1.575290.3.579.2.93470-20-9256Wrycjhz3655663 2.16840.1.456961.3.579.2.19151-93-4986Woykbaf048780263 2.16840.1.145572.3.579.2.9911-64-6424Qdngpiw00208215 2.16.840.1.614053.3.579.2.38272-28-7916Ranipuu25091260 2.16.840.1.999199.3.579.2.52623-76-4196Mfndcow89285174 2.16.840.1.560165.3.579.2.85009-29-6690Ikpvzdi55598232 2.16840.1.966718.3.579.2.08212-66-2472Gbdownk61108932 2.16.840.1.794476.3.579.2.42710-08-8496Vujqddj51937087 2.16.840.1.119734.3.579.2.38009-69-2158Dnvlslf205643388 2.16.840.1.205990.3.579.2.83357-65-4760Ausrdgt625821729 2.16.840.1.208342.3.579.2.11505-05-3611Rsybdwo732511994 2.840.1.869338.3.579.2.57606-50-3825Vsivgjs253094948 2.840.1.570870.3.579.2.82426-21-5952Mlkeyrl394887595 2.84.1.126987.3.579.2.02451-40-5076Hmvhmtt837244911 2.0.1.718004.3.579.2.75813-25-2617Ythnigd820183831 2..1.002327.3.579.2.08455-43-9414Qoaviwr086126540 2..1.949274.3.579.2.85306-70-6703Wadalll063600245 2..1.276765.3.579.2.71787-72-1364Kuppybr918748773 2..1.022740.3.579.2.58810-27-7734Slzlfsk099842952 2.840.1.536153.3.579.2.8196Emroxgk10115217 2..1.846412.3.579.2.531 Bhqtgfd49692560 2.840.1.187544.3.579.2.544Gwrmuso16869263 2.840.1.338515.3.579.2.511Tcitcwn91310556 2.840.1.874737.3.579.2.531 Fllwqpu96001154 2.840.1.264687.3.579.2.504Mfaamog23223289 2.840.1.667237.3.579.2.043Tlwwvdq48943631 2.16.840.1.527540.3.579.2.531 Ibzmbkz55818312 2.840.1.185748.3.579.2.769Eqgbpmd17660220 2.840.1.333859.3.579.2.066Znzjkfu73199995 2.840.1.276758.3.579.2.531 Hycrkxc31472496 2.840.1.493044.3.579.2.181Ivqemjz27576104 2.840.1.726647.3.579.2.343Zbzqbxx57856614 2.840.1.962273.3.579.2.531 Mkzvsmq42463537 2.840.1.490500.3.579.2.458Ujginhe94712958 2.840.1.353882.3.579.2.569Mrahvnf54327657 2.0.1.061668.3.579.2.531 Fyniagi95469612 2..1.582652.3.579.2.159Pqixkpn79837211 2.840.1.243944.3.579.2.297Qdrapxv28321266 2.840.1.168963.3.579.2.531 Iypadwv28648050 2.840.1.926179.3.579.2.502Etlxqde55198586 2.840.1.327653.3.579.2.095Ayxkorg54302802 2.840.1.157247.3.579.2.531 Kljxymb93882478 2.840.1.842829.3.579.2.215Bvazbxw92119515 2.840.1.829329.3.579.2.516Xzpttpw12467376 2.16.840.1.777828.3.579.2.531 Gcxectv61171135 2.16.840.1.977222.3.579.2.761Elbpefh49997434 2.16.840.1.639803.3.579.2.882Vvfaepx62383480 2.16.840.1.346265.3.579.2.531 Csubjzg14793996 2.16.840.1.466947.3.579.2.531 Social History DateTypeDetailFacilityStart: 07-13-2023 End: 65-09-7123Thste alcohol useDaily alcohol use-[facility] 250 DO Work Phone: Comment on above:1-2 beers;Coffee 2 cups daily;Quit smoking in 1979;Start: 07-13-2023 End: 41-05-3405Zxl Assigned At [facility] brettapproved Other Start: 12-26-2019 End: 07-02-5799Dldgmnc smoking status NHISEx-smoker (finding)[facility] 06-13-8447Znq [facility] [birth year][facility]1963 End: 89-94-0867Mjiwqru of tobacco useCurrent smokerUnKettering Health [facility] Work Phone: Start: 04-07-1963 End: 82-60-9194Qmaisaj of tobacco useCigarette SmokerUnKettering Health [facility] Work Phone: Start: 07-13-2023 End: 18-46-0125Rcbobpn use and exposureSmokeless tobacco non-userUnKettering Health [facility] Work Phone: Start: 07-13-2023 End: 33-22-2064Gwgawszsy beverage intakeCurrent drinker of alcohol (finding) [facility] Work Phone: Start: 12-94-9575Ave assigned at birthNot on file [facility] Work Phone: Start: 07-03-2023 End: 90-80-2954Bwvldtvl to SARS-CoV-2 (event)Not sureUniversity Hospitals Cleveland Medical CenterStart: 46-53-2409Ywktwwtwl beverage intakeEx-drinker (finding)[facility] [employer] [facility] HospitalPhysical abuseDeniesBon [facility] HospitalNewsFixed [facility] HospitalStart: 63-61-0624Hgxptzp Commentdaily couple a dayBon Telanetix [facility] HospitalStart: 03-10-2024 End: 96-44-1984RiuCein (finding)[facility] [place] [facility] NHISTobacco smoking consumption unknownCox SouthStart: 07-13-2024 End: 77-73-7424AmsrpbuieGen[facility] Hospital Work Phone: Medical Equipment Procedure CodeEquipment CodeEquipment Original TextEquipment IdentifierDates Arthroplasty, knee, total, minimally invasiveART SURF LEFT 11MM 10-11EFFDAStart: 58-69-3673Icnydlokplmy, knee, total, minimally invasive ()[id number] FDAStart: 21-85-1873Slerllceroba, knee, total, minimally invasive()[id number] FDA Start: 26-81-7947Ytvkiepyzajb, knee, total, minimally invasive ()[id number] FDAStart: 64-00-3703Nqlwpcchrzga, knee, total, minimally invasive()[id number] FDAStart: 41-59-1908Ieayjyxobiji, knee, total, minimally invasiveART SURF LEFT 11MM 10-11EFFDAStart: 13-97-8152Urwhwmvtcsrg, knee, total, minimally invasiveART SURF LEFT 11MM 10-11EFFDAStart: 35-80-6283Lwougxlklzbu, knee, total, minimally invasiveART SURF LEFT 11MM 10-11EFFDAStart: 37-31-6989Ratgcrxwflit, knee, total, minimally invasiveART SURF LEFT 11MM 10-11EFFDAStart: 00-46-7195Qufjcikorjbw, knee, total, minimally invasiveART SURF LEFT 11MM 10-11EFFDAStart: 11-05-2019 Arthroplasty, knee, total, minimally invasiveART SURF LEFT 11MM 10-11EFFDAStart: 61-70-2568Ixetngsxiixw, knee, total, minimally invasiveART SURF LEFT 11MM 10-11EFFDAStart: 36-09-8272Swvgxltvxxmj, knee, total, minimally invasiveART SURF LEFT 11MM 10-11EFFDAStart: 51-62-3690Eusalzkkqwyd, knee, total, minimally invasiveART SURF LEFT 11MM 10-11EFFDAStart: 43-61-6563Ixgsmvhlpbos, knee, total, minimally invasiveART SURF LEFT 11MM 10-11EFFDAStart: 35-04-3527Ohzpavkenekg, knee, total, minimally invasiveART SURF LEFT 11MM 10-11EFFDAStart: 11-05-2019 Arthroplasty, knee, total, minimally invasiveART SURF LEFT 11MM 10-11EFFDAStart: 94-56-7213Wiagslxssjbf, knee, total, minimally invasiveART SURF LEFT 11MM 10-11EFFDAStart: 07-56-0305Cnjuqodqupri, knee, total, minimally invasiveART SURF LEFT 11MM 10-11EFFDAStart: 91-50-8790Xebbfvzlbwox, knee, total, minimally invasiveART SURF LEFT 11MM 10-11EFFDAStart: 22-52-9118Iayfvugohfey, knee, total, minimally invasiveART SURF LEFT 11MM 10-11EFFDAStart: 08-61-0617Wfcxxaosukjq, knee, total, minimally invasiveART SURF LEFT 11MM 10-11EFFDAStart: 11-05-2019 Arthroplasty, knee, total, minimally invasiveART SURF LEFT 11MM 10-11EFFDAStart: 55-63-6501Rcgyjpgqpmmh, knee, total, minimally invasiveART SURF LEFT 11MM 10-11EFFDAStart: 84-22-3529Bevbbatzypbl, knee, total, minimally invasiveFDA Start: 64-37-8949Nrhgslroynzk, knee, total, minimally invasiveFDAStart: 63-67-8957Xtvxhlpxxluv, knee, total, minimally invasiveART SURF LEFT 11MM 10-11EFFDAStart: 24-92-0104Udzlmgywkdnt, knee, total, minimally invasiveART SURF LEFT 11MM 10-11EFFDAStart: 00-07-0575Lhzkkarpjoda, knee, total, minimally invasiveFDAStart: 72-42-6568Ajwqnexyzjoi, knee, total, minimally invasiveFDA Start: 01-76-3834Ytqlumjdeuek, knee, total, minimally invasiveFDAStart: 14-61-7850Chsfyclfukmd, knee, total, minimally invasiveFDAStart: 11-05-2019 Arthroplasty, knee, total, minimally invasiveFDAStart: 17-37-0824Lpuwmunhrdcw, knee, total, minimally invasiveART SURF LEFT 11MM 10-11EFFDAStart: 11-05-2019 Arthroplasty, knee, total, minimally invasiveART SURF LEFT 11MM 10-11EFFDAStart: 37-72-5458Plamvingiiel, knee, total, minimally invasiveART SURF LEFT 11MM 10-11EFFDAStart: 30-79-6955Rzghgfplkzos, knee, total, minimally invasiveART SURF LEFT 11MM 10-11EFFDAStart: 84-69-5549Voxctqjzvctk, knee, total, minimally invasiveFDAStart: 73-45-7379Lbhsopkeedas, knee, total, minimally invasiveFDA Start: 93-73-8544Nfhrdfuhoqzp, knee, total, minimally invasiveART SURF LEFT 11MM 10-11EFFDAStart: 38-49-2635Jlmpavivhdza, knee, total, minimally invasiveART SURF LEFT 11MM 10-11EFFDAStart: 92-88-4415Cqubnwextuys, knee, total, minimally invasiveART SURF LEFT 11MM 10-11EFFDAStart: 26-09-7939Ervqadwipyoq, knee, total, minimally invasiveART SURF LEFT 11MM 10-11EFFDAStart: 82-86-4915Njvmqxzkuxwo, knee, total, minimally invasiveART SURF LEFT 11MM 10-11EFFDAStart: 11-05-2019 Arthroplasty, knee, total, minimally invasiveART SURF LEFT 11MM 10-11EFFDAStart: 40-62-9906Gdrptuobulzl, knee, total, minimally invasiveFDAStart: 11-05-2019 Arthroplasty, knee, total, minimally invasiveART SURF LEFT 11MM 10-11EFFDAStart: 35-23-6837Goggiinvuncj, knee, total, minimally invasiveFDAStart: 11-05-2019 Goals DatePatient GoalDesired Activity/State Functional Status WddiEefytxfrjxEdycnfMgzdhqoz79-80-7019Ragkmhaeqw statusPatient is Progressing Toward [facility] Work Phone: [phone] statusPatient Not at Baseline [facility] Work Phone: 1([phone]) [phone] statusPatient is Progressing Toward [facility] Work Phone: 1(561) [phone]ddswgyh statusPatient is Progressing Toward [facility] Work Phone: 1([phone] statusPatient at Baseline [facility] Work Phone: [phone] statusPatient at Baseline [facility] Work Phone: 1([phone]sceklyhrt statusPatient is Progressing Toward [facility] Work Phone: Mental Status VfeyCpmynvkwkmWadhcsNzztexgd20-47-9348Eicssvudz functionPatient at Baseline [facility] Work Phone: [phone] functionCognitive Status Patient [facility] Work Phone: [phone] functionPatient at Baseline [facility] Work Phone: [phone] functionPatient at Baseline [facility] Work Phone: 1([phone] functionPatient at Baseline [facility] Work Phone: [phone] functionPatient at Baseline [facility] Work Phone: [phone] functionCognitive Status [facility] Work Phone: Clinical Notes 05-23-2006 to 12-17-2024 Note Date & DbfoZrvwOgzlbmdz46-05-6213 Progress note Author Michele Knight [facility] HospitalNote Date/TimeOctober 2024 8:35pm [place] [address] Hospitalist Progress Note Signed Patient: Tavo Wallis Jr MR# : [id number] : 1940 Acct:[id number] Age/Sex: 84 / M Adm Date: 5 Loc: 4N Room: 6U4124-4 Type: ADM IN Attending Dr: Michele Knight [...] - Continue PT/OT, plan for discharge to long term facility for further therapy needs A-fib on [...] <Electronically signed by Michele Knight MD> 12/17/242034 [facility] Work Phone: 1(204) 387-158510-13-2025 Progress note Author W CentervilleNote Date/TimeOctober 2024 4:47pm [place] [address] Cardiology Progress Note Signed Patient: Tavo Wallis Jr MR# : [id number] : 1940 Acct:[id number] Age/Sex: 84 / M Adm Date: 5 Loc: 4N Room: 0W1023-0 Type: ADM IN Attending Dr: Michele Knight [...] with RVR while on chronic anticoagulation. His OUMSS5HDEEfeblw is 4 and HAS-BLED score is also [...] % (Auto) 64.7 Lymph % (Auto) 17.9 [place] % (Auto) 10.4 Eos % (Auto) 6.2 Baso % (Auto) 0.8 Nucleat RBC Rel Count 0.1 Neut # (Auto) 2.2 Lymph # (Auto) 0.6 L [place] # (Auto) 0.4 Eos # (Auto) 0.2 [...] <Electronically signed by Bhupinder Mcintyre DO> 12/17/241646 [facility] Work Phone: 1(206) 145-254210-12-2025 Progress note Author Akash Mccartney [facility] HospitalNote Date/TimeOctober 2024 9:46pm [place] [address] Hospitalist Progress Note Signed Patient: Tavo Wallis Jr MR# : [id number] : 1940 Acct:[id number] Age/Sex: 84 / M Adm Date: 5 Loc: Room: [address] [place] [address] Type: ADM IN Attending Dr: Akash Mccartney [...] - Continue PT/OT, plan for discharge to long term facility for further therapy needs A-fib on [...] <Electronically signed by Akash Mccartney MD> 12/16/242145 [facility] Work Phone: 1(440) 575-526110-11-2025 Progress note Author Akash Mccartney [facility] HospitalNote Date/TimeOctober 2024 4:39pm [place] [address] Hospitalist Progress Note Signed Patient: Tavo Wallis Jr MR# : [id number] : 1940 Acct:[id number] Age/Sex: 84 / M Adm Date: 5 Loc: 4N Room: [address] [place] [address] Type: ADM IN Attending Dr: Akash Mccartney [...] Syringe IV-PUSH 12/12/25 21:59 Not Given QSHIFT [facility] Trazodone HCl 50 mg 12/12/24 18:24 12/14/24 [...] - Continue PT/OT, plan for discharge to long term facility for further therapy needs A-fib on [...] future Documented By: Akash Mccartney MD 5 5512 Signed By: <Electronically signed by Akash Mccartney MD> 12/15/24 1160 [facility] Work Phone: 1(161) 187-436410-10-2025 Progress note Author Akash Mccartney [facility] HospitalNote Date/TimeOctober 2024 5:22pm [place] [address] Hospitalist Progress Note Signed Patient: Tavo Wallis Jr MR# : [id number] : 1940 Acct:[id number] Age/Sex: 84 / M Adm Date: 5 Loc: 4N Room: [address] [place] [address] Type: ADM IN Attending Dr: Akash Mccartney [...] Tablet PO 12/12/25 21:59 400 mg QHS [facility] Administration Non-Formulary Medication 3 mg 12/12/24 22:00 12/13/24 23:08 Eszopiclone [Lunesta] PO 12/12/25 21:59 Not Given QHS [facility] Nystatin 1 applic 12/12/24 21:00 12/14/24 08:04 [...] - Continue PT/OT, plan for discharge to long term facility for further therapy needs A-fib on [...] signed by Akash Mccartney MD> 12/14/24 1722 [facility] Work Phone: 1(590) 584-470710-10-2025 Consult note Author Bhupinder Mcintyre [facility] HospitalNote Date/TimeOctober 2024 4:05pm [place] [address] Cardiology Consult Note Signed Patient: Tavo Wallis Jr MR# : [id number] : 1940 Acct:[id number] Age/Sex: 84 / M Adm Date: Loc: 4N Room: [address] [place] [address] Type: ADM IN Attending Dr: Akash Mccartney [...] with RVR while on chronic anticoagulation. His AQPOM9ILWPmqtfx is 4 and HAS-BLED score is also [...] themain issue with his falling and weakness. [facility] Medical History Abrasion of arm, left Fall [...] drinks a day >6 Social History Comments: [facility] rehab Meds Medications and Allergies Allergies [...] x10E3/uL Lymph # (Auto) 1.2 (1.00-4.8) x10E3/uL [place] # (Auto) 0.5 (0.0-0.8) x10E3/uL Eos # [...] <Electronically signed by RES Janie Khan> 12/14/24 4673 [facility] Work Phone: 1([phone] 161-993710-09-2025 Progress note Author Akash Mccartney [facility] HospitalNote Date/TimeOctober 2024 5:16[place] [address] Hospitalist Progress Note Signed with Addenda Patient: Tavo Wallis Jr MR# : [id number] : 1940 Acct:[id number] Age/Sex: 84 / M Adm Date: 5 Loc: 4 Room: [address] [place] [address] Type: ADM IN Attending Dr: Akash Mccartney [...] studies Documented By: Akash Mccartney MD 5 [id number] Signed By: <Electronically signed by Akash Mccartney MD> 12/13/24 1676 [facility] Work Phone: 1(425) 672-944510-09-2025 History and physical note Author Akash Mccartney [facility] HospitalNote Date/TimeOctober 2024 3:14[place] [address] Hospitalist H&P Signed Patient: Tavo Wallis MR# : [id number] : 1940 Acct:[id number] Age/Sex: 84 / M Adm Date: 5 Loc: 4N Room: 9M5706-2 Type: ADM IN Attending Dr: Akash Mccartney [...] that which is noted above in HPI [facility] Medical History Abrasion of arm, left Fall [...] drinks a day >6 Social History Comments: [facility] rehab Meds Medications and Allergies Allergies [...] % (Auto) 15.9 % (.) 12/12/24 12: [place] % (Auto) 7.5 % (.) 12/12/24 12: Eos % (Auto) 4.4 % (.) 12/12/24 12:25 Baso % (Auto) 0.6 % (.) 12/12/24 12: Nucleat RBC Rel Count 0.3 /100 WBC (0-0.5) 12/12/24 12: Neut # (Auto) 3.5 x10E3/uL (1.8-7.7) 12/12/24 12: Lymph # (Auto) 0.8 x10E3/uL (1.00-4.8) L 12/12/24 12: [place] # (Auto) 0.4 x10E3/uL (0.0-0.8) 12/12/24 12:25 [...] pH 5.5 (5.0-9.0) 12/12/24 13:19 Ur Specific Randolph 1.004 (1.001-1.030) 12/12/24 13:19 Urine Protein Negative [...] with PMH of HTN, hypothyroidism, BPH, chronicindwelling Hcou catheter, history of multiple back surgeries including [...] <Electronically signed by Akash Mccartney MD> 12/13/24 0288 [facility] Work Phone: 1(185) 808-212610-08-2025 Radiology [facility] [place] [address] [place] [address] CT Scan Report Signed Patient: Tavo Wallis Jr MR# : [id number] : 1940 Acct:[id number] Age/Sex: 84 / M ADM Date: 5 Loc: ER Room: Type: [facility] ER Attending Dr: Copies to: Sree Thao DO~ Ordering Provider: Sree Thao DO Date of Service: 12/12/24 CT/CT cervical spine wo con: fall ([id number]) CT/CT head/brain wo con: fall CT head/brain [...] Mahoney M.D. 12/12/2024 1:53 PM Dictation Location: [place] [address] Transcribed By: [facility] 12/12/24 1353 Dictated By: Shaquille Mahoney II, MD 12/12/24 1346 Signed By: 12/12/24 1353 [facility] Work Phone: 1(390) 824-622508-27-2025 Radiology Diagnostic [facility] [place] [address] [place] [address] CT Scan Report Signed Patient: Tavo Wallis Jr MR# : [id number] : 1940 Acct:[id number] Age/Sex: 84 / M ADM Date: 5 Loc: CT Room: Type: [facility] Attending Dr: Jovany Stovall MD Copies [...] Cardoso M.D. 10/31/2024 5:33 PM Dictation Location: [place] [address] Transcribed By: [facility] 10/31/24 1733 Dictated By: Esa Cardoso DO 10/31/24 1726 Signed By: 10/31/24 1733 [facility]08-27-2025 Radiology Diagnostic study note [facility] [place] [address] [place] [address] CT Scan Report Signed Patient: Tavo Wallis Jr MR# : [id number] : 1940 Acct:[id number] Age/Sex: 84 / M ADM Date: 5 Loc: CT Room: Type: [facility] Attending Dr: Jovany Stovall MD Copies [...] Cardoso M.D. 10/31/2024 5:26 PM Dictation Location: [place] [address] Transcribed By: [facility] 10/31/241725 Dictated By: Esa Cardoso DO 10/31/24 171 Signed By: 10/31/241725 [facility]08-05-2025 Progress note Author Frankie Johnson [facility] HospitalNote Date/TimeAugust 2024 12:52pm[place] [address] Hospitalist Progress Note Signed Patient: Tavo Wallis Jr MR# : [id number] : 1940 Acct:[id number] Age/Sex: 84 / M Adm Date: 5 Loc: Room: [address] [place] [address] Type: ADM IN Attending Dr: Frankie Johnson [...] <Electronically signed by Frankie Johnson DO> 10/09/24 [facility] Work Phone: 1(252) 603-952408-04-2025 Progress note Author Frankie Johnson [facility] HospitalNote Date/TimeAugust 2024 8:15[place] [address] Hospitalist Progress Note Signed Patient: Tavo Wallis Jr MR# : [id number] : 1940 Acct:[id number] Age/Sex: 84 / M Adm Date: 5 Loc: Room: [address] [place] [address] Type: ADM IN Attending Dr: Frankie Johnson [...] Tablet PO 10/06/25 06:29 Not Given DAILY.0630 [facility] Magnesium Oxide 400 mg 10/06/24 09:00 10/08/24 [...] signed by Frankie Johnson DO> 10/08/24 0815 [facility] Work Phone: 1(755) 911-621608-03-2025 Progress note Author Franck Gagnon [facility] HospitalNote Date/TimeAugust 2024 10:[place] [id number] Hospitalist Progress Note Signed with Addenda Patient: Tavo Wallis Jr MR# : [id number] : 1940 Acct:[id number] Age/Sex: 84 / M Adm Date: 5 Loc: Room: [address] [place] [address] Type: ADM INOo Attending Dr: Franck Gagnon [...] signed by Franck Gagnon DO> 10/07/24 0959 [facility] Work Phone: 1(977) 197-977108-03-2025 Progress note Author Jovany Stovall [facility] HospitalNote Date/TimeAugust 2024 9:04[place], [place] [address] Neurosurgery Progress Note Signed Patient: Tavo Wallis Jr MR# : [id number] : 1940 Acct:[id number] Age/Sex: 84 / M Adm Date: 5 Loc: 3T Room: [address] [place] [address] Type: ADM INOo Attending Dr: Franck Gagnon [...] patient up in my office in [address] of the head. He could be seen by my nurse practitioner atthat time. Documented By: Jovany Stovall MD 10/07/24901 Signed By: <Electronically signed by MD Jovany Stovall> 10/07/24903 [facility] Work Phone: 1(249) 663-275708-03-2025 Radiology Diagnostic study [facility] Work Phone: 1(321) 316-536308-03-2025 Radiology Diagnostic study [facility] Work Phone: 1(497) 631-398708-02-2025 Progress note Author Michele Knight [facility] HospitalNote Date/TimeAugust 2024 8:32[place] [address] Progress Note Signed Patient: Tavo Wallis Jr MR# : [id number] : 1940 Acct:[id number] Age/Sex: 84 / M Adm Date: 5 Loc: 3T Room: [address] [place] [address] Type: ADM INOo Attending Dr: Franck Gagnon [...] <Electronically signed by Michele Knight MD> 10/06/242031 [facility] Work Phone: 1(766) 927-488108-02-2025 Radiology Diagnostic study [facility] Work Phone: 1(981) 868-785408-02-2025 Progress note Author Franck Gagnon [facility] HospitalNote Date/TimeAugust 2024 11:47[place] [address] Hospitalist Progress Note Signed Patient: Tavo Wallis Jr MR# : [id number] : 1940 Acct:[id number] Age/Sex: 84 / M Adm Date: 5 Loc: 3T Room: [address] [place] [address] Type: ADM INOo Attending Dr: Franck Gagnon [...] DO Documented By: Franck Gagnon DO 10/06/24 1055 Signed By: <Electronically signed by Franck Gagnon DO> 10/06/24 0361 [facility] Work Phone: 1(218) 404-483408-02-2025 Consult note Author Jovany Stovall [facility] HospitalNote Date/TimeAugust 2024 9:00[place] [id number] Neurosurgery Consult Note Signed Patient: Tavo Wallis Jr MR# : [id number] : 1940 Acct:[id number] Age/Sex: 84 / M Adm Date: 5 Loc: 3T Room: [address] [place] [address] Type: ADM INOo Attending Dr: Franck Gagnon [...] negative unless noted below or in HPI [facility] Medical History (Updated 10/06/24 @ 08:53 by [...] drinks a day >6 Social History Comments: [facility] Meds Medications and Allergies Allergies fentanyl [...] % (Auto) 65.2, Lymph % (Auto) 19.8, [place] % (Auto) 9.9, Eos % (Auto) 4.7, Baso % (Auto) 0.4, Nucleat RBC Rel Count 0.2, Neut # (Auto) 3.7, Lymph # (Auto) 1.1, [place] # (Auto) 0.6, Eos # (Auto) 0.3, [...] you. Documented By: Jovany Stovall MD 10/06/24 0813 Signed By: <Electronically signed by MD Jovany Stovall> 10/06/24 09 [facility] Work Phone: 1(402) 763-382008-02-2025 History and physical note Author Frankie Jhonson [facility] HospitalNote Date/TimeAugust 2024 5:25[place] [address] Hospitalist H&P Signed Patient: Tavo Wallis Jr MR# : [id number] : 1940 Acct:[id number] Age/Sex: 84 / M Adm Date: 5 Loc: 3T Room: [address] [place] [address] Type: ADM INOo Attending Dr: Frankie Johnson [...] risk. Continue fall precautions. Consult to PT/OT. [facility] Medical History Insomnia Hypothyroidism Hypertension Constipation BPH [...] drinks a day >6 Social History Comments: [facility] Meds Medications and Allergies Allergies fentanyl [...] % (Auto) 19.8 % (.) 10/05/24 19:30 [place] % (Auto) 9.9 % (.) 10/05/24 19:30 Eos % (Auto) 4.7 % (.) 10/05/24 19:30 Baso % (Auto) 0.4 % (.) 10/05/24 19:30 Nucleat RBC Rel Count 0.2 /100 WBC (0-0.5) 10/05/24 19:30 Neut # (Auto) 3.7 x10E3/uL (1.8-7.7) 10/05/24 19:30 Lymph # (Auto) 1.1 x10E3/uL (1.00-4.8) 10/05/24 19:30 [place] # (Auto) 0.6 x10E3/uL (0.0-0.8) 10/05/24 19:30 [...] <Electronically signed by Frankie Johnson DO> 10/06/24524 [facility] Work Phone: 1(302) 425-276208-01-2025 Radiology Diagnostic study [facility] Work Phone: 1(999) 363-393308-01-2025 Radiology Diagnostic study [facility] Work Phone: 1(800) 570-133008-01-2025 Radiology Diagnostic study [facility] Work Phone: 1(159) 483-995907-31-2025 Evaluation note* Diagnosis Onset Date Resolution Status [...] of right heelacute December 12, 2024 2:39pm [facility] Work Phone: 1([phone]) [phone] Evaluation note* Diagnosis Onset Date Resolution Status [...] 2:39pmAtrial fibrillation with RVR resolvedOctober 2024 2:39pm [facility] Work Phone: [phone]) [phone] Evaluation note* Diagnosis Onset Date Resolution Status Admit Date Hx of decompressive lumbar laminectomy acuteJuly 2024 3:12pmNeurogenic claudication due to lumbar spinal stenosis acuteJuly 2024 3:12pmRadicular low back painacuteJuly 2024 3:12pm Severe back painacuteJuly 2024 3:12pmCatheter-associated urinary tract infectionacuteJuly 2024 1:51pmCatheter-associated urinary tract infection acuteAugust 2024 7:05amIntracranial hemorrhageacuteAugust 2024 7:05am Abrasion of arm, leftinactiveAugust 2024 7:05amFallinactiveAugust 2024 7:05amFeverdeletedAugust 2024 7:05am [facility] Work Phone: [phone] Evaluation note* Diagnosis Onset Date Resolution Status [...] 2024 9:43amSevere back pain acuteSeptember 2024 9:43am [facility] Work Phone: [phone] Evaluation note* Diagnosis Onset Date Resolution Status [...] 2024 9:43amAtrial fibrillation with RVRacuteOctober 2024 2:39pm [facility] Work Phone: [phone]) 321-439105-13-2025 Progress note Author Frankie Reynolds [facility] HospitalNote Date/TimeMay 2024 8:[place] [address] Infect. Disease Progress Note Signed Patient: Tavo Wallis Jr MR# : [id number] : 1940 Acct:[id number] Age/Sex: 84 / M Adm Date: 5 Loc: Room: [address] [place] [address] Type: ADM IN Attending Dr: Mario Jordan [...] Mg Tablet) 300 mg PO DAILY [facility] Stop: 07/13/25 08:59 Last Admin: 07/17/24 08:15 Dose: 300 mg Apixaban (Apixaban 5 Mg Tablet) 5 mg PO BID [facility] Stop: 07/15/25 20:59 Last Admin: 07/17/24 08:15 Dose: 5 mg Atorvastatin Calcium (Atorvastatin 40 Mg Tablet) 40 mg PO DAILY [facility] Stop: 07/13/25 08:59 Last Admin: 07/17/24 08:15 Dose: 40 mg Bumetanide (Bumetanide 1 Mg Tablet) 1 mg PO DAILY@0800 [facility] Stop: 07/15/25 07:59 Last Admin: 07/17/24 08:15 Dose: 1 mg Cefepime HCl (Maxipime) 2 gm in 50 mls @ 12.5 mls/hr IV Q12H [facility] Last Admin: 07/17/24 08:15 Dose: 12.5 mls/hr Vancomycin HCl (Vancomycin) 1 gm in 250 mls @ 250 mls/hr IV Q24H [facility] Last Infusion: 07/16/24 12:00 Dose: Infused Levothyroxine Sodium (Levothyroxine 150 Mcg Tablet) 150 mcg PO DAILY.0630 [facility] Stop: 07/13/25 06:29 Last Admin: 07/17/24 08:15 Dose: 150 mcg Magnesium Oxide (Magnesium Oxide 400 Mg Tablet) 400 mg PO DAILY [facility] Stop: 07/13/25 08:59 Last Admin: 07/17/24 08:16 Dose: 400 mg Eszopiclone 3 Mg (Tablet) 3 mg PO QHS [facility] Stop: 07/12/25 21:59 Last Admin: 07/16/24 22:10 Dose: 3 mg Pom (Eszopiclone 3 (Mg Tablet)) 3 mg PO QHS [facility] Stop: 07/20/25 21:59 Oxycodone/Acetaminophen (Oxycodone/Acetaminophen 5-325 Mg [...] By: <Electronically signed by MD Frankie Reynolds> 07/17/2495 [facility] Work Phone: 1([phone] Progress note Author Mario Jordan [facility] HospitalNote Date/TimeMay 2024 2:59[place] [address] Hospitalist Progress Note Signed Patient: Tavo Wallis Jr MR# : [id number] : 1940 Acct:[id number] Age/Sex: 84 / M Adm Date: 5 Loc: Room: [address] [place] [address] Type: ADM IN Attending Dr: Mario Jordan [...] gout, cardiomyopathy, history of CHF, [facility] from [facility] for chief concern for hematuria. Patient [...] Daily weights - Heart healthy diet - PT/OT-long term facility - Full code SCD for DVT prophylaxis Documented By: Mario Jordan MD 07/16/241454 Signed By: <Electronically signed by Mario Jordan MD> 07/16/241458 [facility] Work Phone: [phone] Progress note Author Farnkie Reynolds [facility] HospitalNote Date/TimeMay 2024 9:28[place] [address] Infect. Disease Progress Note Signed Patient: Tavo Wallis Jr MR# : [id number] : 1940 Acct:[id number] Age/Sex: 84 / M Adm Date: 5 Loc: Room: [address] [place] [address] Type: ADM IN Attending Dr: Mario Jordan [...] 500 Mg Tablet) 500 mg PO TID [facility] Stop: 07/12/25 21:59 Last Admin: 07/15/24 22:09 [...] Mg Tablet) 5 mg PO BID [facility] Stop: 07/15/25 20:59 Last Admin: 07/15/24 22:09 Dose: 5 mg Atorvastatin Calcium (Atorvastatin 40 Mg Tablet) 40 mg PO DAILY [facility] Stop: 07/13/25 08:59 Last Admin: 07/15/24 08:33 Dose: 40 mg Bumetanide (Bumetanide 1 Mg Tablet) 1 mg PO DAILY@0800 [facility] Stop: 07/15/25 07:59 Last Admin: 07/15/24 08:33 Dose: 1 mg Cefepime HCl (Maxipime) 2 gm in 50 mls @ 12.5 mls/hr IV Q12H [facility] Last Admin: 07/15/24 20:05 Dose: 12.5 mls/hr Vancomycin HCl (Vancomycin) 1 gm in 250 mls @ 250 mls/hr IV Q24H [facility] Levothyroxine Sodium (Levothyroxine 150 Mcg Tablet) 150 mcg PO DAILY.0630 [facility] Stop: 07/13/25 06:29 Last Admin: 07/16/24 05:21 Dose: 150 mcg Magnesium Oxide (Magnesium Oxide 400 Mg Tablet) 400 mg PO DAILY [facility] Stop: 07/13/25 08:59 Last Admin: 07/15/24 08:33 Dose: 400 mg Eszopiclone 3 Mg (Tablet) 3 mg PO QHS [facility] Stop: 07/12/25 21:59 Last Admin: 07/15/24 22:09 Dose: 3 mg Pom (Eszopiclone 3 (Mg Tablet)) 3 mg PO QHS [facility] Stop: 07/20/25 21:59 Oxycodone/Acetaminophen (Oxycodone/Acetaminophen 5-325 Mg Tablet) 1 tab PO Q4H PRN PRN Reason: Pain Scale 4 - 7 Last Admin: 07/13/24 22:05 Dose: 1 tab Polyethylene Glycol (Polyethylene Glycol 3350 17 Gm Powd.Pack) 17 gm PO BID [facility] Stop: 07/14/25 10:04 Last Admin: 07/15/24 20:11 Dose: Not Given Potassium Chloride (Potassium Chloride Er 20 Meq Tab.Er.Prt) 20 meq PO DAILY [facility] Stop: 07/13/25 08:59 Last Admin: 07/15/24 08:33 Dose: 20 meq Sennosides (Sennosides Syrup 8.8 Mg/5 Ml Udc) 8.8 mg PO BID [facility] Stop: 07/14/25 10:04 Last Admin: 07/15/24 20:12 [...] is just weak and is upper thighs. [facility] that he has been to on and off therapy only happens once a day and it sounds like he sits in a chair or bed for the rest of thetime. This is according to his family member. Documented By: Frankie Reynolds MD 07/16/24918 Signed By: <Electronically signed by MD Frankie Reynolds> 07/16/24927 [facility] Work Phone: 1(861) 336-375005-11-2025 Progress note Author Mario Jordan [facility] HospitalNote Date/TimeMay 2024 1:39pm[place] [address] Hospitalist Progress Note Signed Patient: Tavo Wallis Jr MR# : [id number] : 1940 Acct:[id number] Age/Sex: 84 / M Adm Date: 5 Loc: Room: [address] [place] [address] Type: ADM IN Attending Dr: Mario Jordan [...] gout, cardiomyopathy, history of CHF, [facility] from [facility] for chief concern for hematuria. Patient [...] Daily weights - Heart healthy diet - PT/OT-long term facility - Full code SCD for DVT prophylaxis Documented By: Mario Jordan MD 07/15/241334 Signed By: <Electronically signed by Mario Jordan MD> 07/15/241338 [facility] Work Phone: 1(351) 570-222205-11-2025 Consult note Author Frankie Reynolds [facility] HospitalNote Date/TimeMay 2024 9:59[place] [id number] Infect. Disease Consult Note Signed Patient: Tavo Wallis Jr MR# : [id number] : 1940 Acct:[id number] Age/Sex: 84 / M Adm Date: 5 Loc: Room: [address] [place] [address] Type: ADM IN Attending Dr: Mario Jordan [...] negative unless noted below or in HPI [facility] Medical History Insomnia Hypothyroidism Hypertension Constipation BPH [...] drinks a day >6 Social History Comments: [facility] rehab Allergies and Medications Allergies and [...] 50 mls @ 12.5 mls/hr IV Q12H [facility] Last Admin: 07/15/24 08:34 Dose: 12.5 mls/hr Levothyroxine Sodium (Levothyroxine 150 Mcg Tablet) 150 mcg PO DAILY.0630 [facility] Stop: 07/13/25 06:29 Last Admin: 07/15/24 08:33 Dose: 150 mcg Magnesium Oxide (Magnesium Oxide 400 Mg Tablet) 400 mg PO DAILY [facility] Stop: 07/13/25 08:59 Last Admin: 07/15/24 08:33 Dose: 400 mg Eszopiclone 3 Mg (Tablet) 3 mg PO QHS [facility] Stop: 07/12/25 21:59 Last Admin: 07/14/24 23:17 Dose: Not Given Pom (Eszopiclone 3 (Mg Tablet)) 3 mg PO QHS [facility] Stop: 07/20/25 21:59 Oxycodone/Acetaminophen (Oxycodone/Acetaminophen 5-325 Mg Tablet) 1 tab PO Q4H PRN PRN Reason: Pain Scale 4 - 7 Last Admin: 07/13/24 22:05 Dose: 1 tab Polyethylene Glycol (Polyethylene Glycol 3350 17 Gm Powd.Pack) 17 gm PO BID [facility] Stop: 07/14/25 10:04 Last Admin: 07/15/24 08:17 [...] @ 12.5 mls/hr IV Q12H [facility] Rx#: [id number] Vancomycin 1.25 gm In Dextrose 275 / 550 5 % in Water 250 ml @ 183.333 mls/hr IV Q12H [facility] Rx#:[id number] Oral 860 / 1110 0 / 0 [...] signed by MD Frankie Reynolds> 07/15/24 0959 [facility] Work Phone: [phone]) [phone] Progress note Author Mario Jordan [facility] HospitalNote Date/TimeMay 2024 12:47pm[place] [address] Hospitalist Progress Note Signed Patient: Tavo Wallis Jr MR# : [id number] : 1940 Acct:[id number] Age/Sex: 83 / M Adm Date: 5 Loc: Room: [address] [place] [address] Type: ADM IN Attending Dr: Mario Jordan [...] gout, cardiomyopathy, history of CHF, was sent [facility] from [facility] for chief concern for hematuria. Patient [...] Daily weights - Heart healthy diet - PT/OT-long term facility - General Surgery consulted for abscess in the right mid leg lateral aspect - Full code SCD for DVT prophylaxis Documented By: Mario Jordan MD 07/14/24 1237 Signed By: <Electronically signed by Mario Jordan MD> 07/14/24 1241 [facility] Work Phone: 1([phone]) 667-271205-10-2025 Consult note Author Bryce Villeda [facility] HospitalNote Date/TimeMay 2024 12:21pm[place] [address] General Surgery Consult Note Signed Patient: Tavo Wallis Jr MR# : [id number] : 1940 Acct:[id number] Age/Sex: 83 / M Adm Date: 5 Loc: Room: [address] [place] [address] Type: ADM IN Attending Dr: Mario Jordan MD Copies to: MD Sandip Fajardo DO~ History of Present Illness Date of consult: 07/14/2024 Requesting/Attending Provider: Mario Jordan MD History of present illness: Tavo is an 83-year-old male with multiple medical conditions including atrialfibrillation, hypothyroid, hypertension, CHF, who presented to the ER from [facility] for hematuria. The patient was admitted [...] trauma that may have caused the injury. [facility] Medical History Insomnia Hypothyroidism Hypertension Constipation BPH [...] drinks a day >6 Social History Comments: [facility] rehab Allergies & Medications Medications and [...] 500 Mg Tablet) 500 mg PO TID [facility] Stop: 07/12/25 21:59 Last Admin: 07/14/24 09:05 [...] 50 mls @ 12.5 mls/hr IV Q12H [facility] Last Admin: 07/14/24 09:05 Dose: 12.5 mls/hr Levothyroxine Sodium (Levothyroxine 150 Mcg Tablet) 150 mcg PO DAILY.629 [facility] Stop: 07/13/25 06:29 Last Admin: 07/14/24 06:43 Dose: 150 mcg Magnesium Oxide (Magnesium Oxide 400 Mg Tablet) 400 mg PO DAILY [facility] Stop: 07/13/25 08:59 Last Admin: 07/14/24 09:05 Dose: 400 mg Eszopiclone 3 Mg (Tablet) 3 mg PO QHS [facility] Stop: 07/12/25 21:59 Last Admin: 07/13/24 21:44 Dose: Not Given Pom (Eszopiclone 3 (Mg Tablet)) 3 mg PO QHS [facility] Stop: 07/20/25 21:59 Oxycodone/Acetaminophen (Oxycodone/Acetaminophen 5-325 Mg Tablet) 1 tab PO Q4H PRN PRN Reason: Pain Scale 4 - 7 Last Admin: 07/13/24 22:05 Dose: 1 tab Polyethylene Glycol (Polyethylene Glycol 3350 17 Gm Powd.Pack) 17 gm PO BID [facility] Stop: 07/14/25 10:04 Potassium Chloride (Potassium Chloride Er 20 Meq Tab.Er.Prt) 20 meq PO DAILY [facility] Stop: 07/13/25 08:59 Last Admin: 07/14/24 09:05 Dose: 20 meq Sennosides (Sennosides Syrup 8.8 Mg/5 Ml Udc) 8.8 mg PO BID [facility] Stop: 07/14/25 10:04 Sodium Chloride (Sodium Chloride [...] Neut % (Auto) 84.9, Lymph %(Auto) 7.4, [place] % (Auto) 6.1, Eos % (Auto) 1.4, Baso % (Auto) 0.2, Nucleat RBC Rel Count 0.1, Neut# (Auto) 13.3 H, Lymph # (Auto) 1.2, [place] # (Auto) 1.0 H, Eos # (Auto) [...] Neut % (Auto) 90.2, Lymph %(Auto) 2.7, [place] % (Auto) 6.8, Eos % (Auto) 0.1, Baso % (Auto) 0.2, Nucleat RBC Rel Count 0.1, Neut# (Auto) 24.1 H, Lymph # (Auto) 0.7 L, [place] # (Auto) 1.8 H, Eos # (Auto) [...] % (Auto) N/A, Lymph % (Auto) N/A, [place] % (Auto) N/A, Eos % (Auto) N/A, Baso % (Auto) N/A, Nucleat RBC Rel Count N/A, Neut # (Auto) N/A, Lymph # (Auto) N/A, [place] # (Auto) N/A, Eos # (Auto) N/A, [...] Turbid A, Urine pH , Ur Specific [place] 1.020,Urine Protein , Urine Glucose (UA) , [...] % (Auto) 93.8, Lymph % (Auto) 4.2, [place] % (Auto) 0.4, Eos % (Auto) 1.3, Baso % (Auto) 0.3, Nucleat RBC Rel Count 0.2, Neut # (Auto)6.3, Lymph # (Auto) 0.3 L, [place] # (Auto) 0.0, Eos # (Auto) 0.1, [...] signed by Bryce Villeda DO> 07/14/24 1221 [facility] Work Phone: [phone]) [phone] Radiology Diagnostic [facility] note[facility] Work Phone: 1(450) 552-555005-09-2025 Consult note Author Bayron farnsworth [facility] HospitalNote Date/TimeMay 2024 2:49pm[place] [address] Urology Consult Note Signed Patient: Tavo Wallis Jr MR# : [id number] : 1940 Acct:[id number] Age/Sex: 83 / M Adm Date: 5 Loc: Room: [address] [place] [address] Type: ADM IN Attending Dr: Mario Jordan [...] done and negative except as per HPI [facility] Medical History Insomnia Hypothyroidism Hypertension Constipation BPH [...] drinks a day >6 Social History Comments: [facility] rehab Meds Medications and Allergies Allergies [...] in place with clear yellow urine 22 [place] three-way Skin: Warm and dry Extremities: No [...] Neut % (Auto) 90.2, Lymph %(Auto) 2.7, [place] % (Auto) 6.8, Eos % (Auto) 0.1, Baso % (Auto) 0.2, Nucleat RBC Rel Count 0.1, Neut# (Auto) 24.1 H, Lymph # (Auto) 0.7 L, [place] # (Auto) 1.8 H, Eos # (Auto) [...] % (Auto) N/A, Lymph % (Auto) N/A, [place] % (Auto) N/A, Eos % (Auto) N/A, Baso % (Auto) N/A, Nucleat RBC Rel Count N/A, Neut # (Auto) N/A, Lymph # (Auto) N/A, [place] # (Auto) N/A, Eos # (Auto) N/A, [...] Turbid A, Urine pH , Ur Specific [place] 1.020,Urine Protein , Urine Glucose (UA) , [...] % (Auto) 93.8, Lymph % (Auto) 4.2, [place] % (Auto) 0.4, Eos % (Auto) 1.3, Baso % (Auto) 0.3, Nucleat RBC Rel Count 0.2, Neut # (Auto)6.3, Lymph # (Auto) 0.3 L, [place] # (Auto) 0.0, Eos # (Auto) 0.1, [...] signed by Bayron Tom MD> 07/13/24 1449 [facility] Work Phone: [phone]) [phone] Progress note Author Mario Jordan [facility] HospitalNote Date/TimeMay 2024 2:38pm[place] [address] Hospitalist Progress Note Signed Patient: Tavo Wallis Jr MR# : [id number] : 1940 Acct:[id number] Age/Sex: 83 / M Adm Date: 5 Loc: Room: [address] [place] [address] Type: ADM IN Attending Dr: Mario Jordan [...] gout, cardiomyopathy, history of CHF, was sent [facility] from [facility] for chief concern for hematuria. Patient [...] Daily weights - Heart healthy diet - PT/OT-long term facility - Full code SCD for DVT prophylaxis Documented By: Mario Jordan MD 07/13/24 1436 Signed By: <Electronically signed by Mario Jordan MD> 07/13/24 1436 [facility] Work Phone: 1(102) 573-623105-09-2025 [facility]iology [facility] Work Phone: 1([phone]) 135-744605-08-2025 History and physical note Author Mario Jordan [facility] HospitalNote Date/TimeMay 2024 6:49pm[place] [id number] Hospitalist H&P Signed Patient: Tavo Wallis Jr MR# : [id number] : 1940 Acct:[id number] Age/Sex: 83 / M Adm Date: 5 Loc: Room: [address] [place] [address] Type: ADM IN Attending Dr: Mario Jordan MD Copies to: MD Sandip Fajardo DO~ HPI DATE OF EXAMINATION: 07/12/24 CHIEF COMPLAINT: Hematuria HISTORY OF PRESENT ILLNESS: This is a 83-year-old male with significant past medical history of A-fib, hypothyroidism, hypertension, BPH on chronic Chou since March 2024 exchangingevery month, hyperlipidemia, gout, cardiomyopathy, history of CHF, was sent [facility] from [facility] for chief concern for hematuria. Patient [...] negative unless noted below or in HPI [facility] Medical History Insomnia Hypothyroidism Hypertension Constipation BPH [...] % (Auto) 4.2 % (.) 07/12/24 15:00 [place] % (Auto) 0.4 % (.) 07/12/24 15:00 Eos % (Auto) 1.3 % (.) 07/12/24 15:00 Baso % (Auto) 0.3 % (.) 07/12/24 15:00 Nucleat RBC Rel Count 0.2 /100 WBC (0-0.5) 07/12/24 15:00 Neut # (Auto) 6.3 x10E3/uL (1.8-7.7) 07/12/24 15:00 Lymph # (Auto) 0.3 x10E3/uL (1.00-4.8) L 07/12/24 15:00 [place] # (Auto) 0.0 x10E3/uL (0.0-0.8) 07/12/24 15:00 [...] Urine pH (5.0-9.0) 07/12/24 16:19 Ur Specific Randolph 1.020 (1.001-1.030) 07/12/24 16:19 Urine Protein mg/dL [...] gout, cardiomyopathy, history of CHF, was sent [facility] from [facility] for chief concern for hematuria. Patient [...] <Electronically signed by Mario Jordan MD> 07/12/24 8234 [facility] Work Phone: 1([phone]) [phone] Evaluation note* Diagnosis Onset Date Resolution Status Admit Date Atrial fibrillation acuteMay 2024 5:00pmBPH (benign prostatic hyperplasia)acuteMay 2024 5:00pmCHF exacerbationacuteMay 2024 5:00pmHematuriaacuteMay 2024 5:00pmHypertensionacuteMay 2024 5:00pmHypothyroidismacuteMay 2024 5:00pmHypoxiaacuteMay 2024 5:00pmSepsisacuteMay 2024 5:00pm [facility] Work Phone: [phone] Evaluation note* Diagnosis Onset Date Resolution Status Admit Date Abscess acuteMay 2024 5:00pmAbscess of left legacuteMay 2024 5:00pmAtrial fibrillationacuteMay 2024 5:00pmBacteremia due to EnterococcusacuteMay 2024 5:00pmBacteremia due to PseudomonasacuteMay 2024 5:00pmBPH (benign prostatic hyperplasia)acuteMay 2024 5:00pmCHF exacerbationacuteMay 2024 5:00pmComplicated UTI (urinary tract infection)acuteMay 2024 5:00pm HematuriaacuteMay 2024 5:00pmHypertensionacuteMay 2024 5:00pm HypothyroidismacuteMay 2024 5:00pmHypoxiaacuteMay 2024 5:00pmSepsis acuteMay 2024 5:00pm [facility] Work Phone: 1([phone]) 446-196005-08-2025 Evaluation note* Diagnosis Onset Date Resolution Status Admit Date Abscess resolvedMay 2024 5:00pmAbscess of left legresolvedMay 2024 5:00pm Atrial fibrillationresolvedMay 2024 5:00pmBacteremia due to Enterococcus resolvedMay 2024 5:00pmBacteremia due to PseudomonasresolvedMay 2024 5:00pmBPH (benign prostatic hyperplasia)2024 5:00pmCHF exacerbationresolvedMay 2024 5:00pmComplicated UTI (urinary tract infection)resolvedJuly 12, 2024 5:00pmHematuriaresolvedMay 2024 5:00pm HypertensionresolvedMay 2024 5:00pmHypothyroidismresolvedMay 2024 5:00pmHypoxiaresolvedMay 2024 5:00pmSepsisresolvedMay 2024 5:00pm [facility] Work Phone: 1([phone]) 361-447505-08-2025 Evaluation note* Diagnosis Onset Date Resolution Status [...] painacuteJuly 2024 3:12pmSevere back painacuteJuly 2024 3:12pm [facility] Work Phone: 1([phone]) 325-951205-08-2025 Evaluation note* Diagnosis Onset Date Resolution Status [...] 2024 3:12pmCatheter-associated urinary tract infectionacuteJuly 2024 1:51pm [facility] Work Phone: 1([phone]) 400-806105-08-2025 Evaluation note* Diagnosis Onset Date Resolution Status [...] 2024 9:13pmFallacuteAugust 2024 9:13pmIntracranial hemorrhageacuteAugust 2024 9:13pm [facility] Work Phone: 1([phone]) 514-596205-08-2025 Evaluation note* Diagnosis Onset Date Resolution Status [...] 7:05amFever acuteAugust 2024 7:05amIntracranial hemorrhageacuteAugust 2024 7:05am [facility] Work Phone: 1([phone]) 295-434605-08-2025 NotePatient Education Urology Hypospadias, Pediatric Hypospadias is [...] Follow these instructions at home: ??? Give [id number] and prescription medicines only as told by [...] Reviewed: 06/23/2020 Monisha Patient Education ? 2023 [employer] Radha.[facility] 07-11-2024 NoteThis is a Telehealth Appointment *This visit was conducted via Telehealth with real time interactive synchronized audio and video communication. The patient provided written consent for treatment. The patient understands their rights, the HIPAA risks and that they will be charged accordingly for the services rendered. The patient was seen via telemedicine while they were at: _[place] This telemedicinevisit was conducted due to: transport_ [...] February 24, extended through May 17, 2024 [facility] for UTI, doxycycline at present through July [...] bivalent 12/24/2021 Recorded Comments (more content not included)...[facility]04-22-2025 NoteThis is a Telehealth Appointment *This visit was conducted via Telehealth with real time interactive synchronized audio and video communication. The patient provided written consent for treatment. The patient understands their rights, the HIPAA risks and that they will be charged accordingly for the services rendered. The patient was seen via telemedicine while they were at: _[place] This telemedicinevisit was conducted due to: transport_ [...] Substance Abuse Denies All (more content not included)...[facility]03-29-2025 Note Patient Education Urology Acute Urinary [...] these instructions at home: Medicines ??? Take [id number]-wcyptqu and prescription medicines only as told by [...] Reviewed: 11/12/2020 Monisha Patient Education ? 2023 [employer].[facility] 05-10-2024 NoteThis is a Telehealth Appointment *This visit was conducted via Telehealth with real time interactive synchronized audio and video communication. The patient provided written consent for treatment. The patient understands their rights, the HIPAA risks and that they will be charged accordingly for the services rendered. The patient was seen via telemedicine while they were at: [place] This telemedicine visit was conducted due to: [...] the andre [1] he had surgery at [facility] in [place].Postoperatively gained a lot of fluid weight. Also has catheter for urinary retention. Has chronic lymphedema uses pumps at home. Admitted to [facility] had MRI that showed fluid collection. History ofA-fib. Surgery was not done there due to need for cardiology services. Transferred to [facility] where he connected with cardiology. Actually went [...] spent on se (more content not included)... [facility]02[facility] History of Present illness Narrative* Partha Gabriel, DPM - 04/26/2024 4:32 PM EST Tavo Byrd Jadynroel : 1940 Correction: [facility] PCP:dr. aguirre Date last seen: 04/15/2024 in [...] right foot Localized edema Decreased pedal pulses USP (current) use of anticoagulants Partha Gabriel DPM [facility] Instructions* Patient Instructions* Partha Gabriel DPM - 04/26/2024 4:32 PM EST Pt not to attempt self care due to high risk. [facility]25 NoteAdmission Information Patient: Tavo Wallis : 1940 Date of Admission: 04/15/2024 03:52:56 Date of Discharge: 04/20/24 Code Status: Full ResuscitationFull Resuscitation PCP: Tavo Mcintyre DO Consult: Celena HARGROVE, Frankie Hernandez; Moises TIDWELL, Crystal Byrd; Aletha TIDWELL, Tye Barrera; Lalo LECHUGA, Gustabo Sharpe; [place] TIDWELL, [facility] Course : This is a 83 Years old Male with past medical history of heart failure with reduced ejection fraction, permanent A-fib, chronic kidney disease stage III AAA, hypothyroidism, chronic back pain with recent surgery about 2 months ago who was transferred from [facility] for wound dehiscence. The reason why patient was transferred was because of his extensive cardiac history and anesthesia at [facility] did not feel comfortable putting him under [...] I reviewed other provider notes. Discharge Location[facility] Discharge Time Spent with Patient: over [...] focal deficits. Psychiatric: Calm (more content not included)...[facility]-17-2024 NoteOperative Report DATE OF PROCEDURE: 04/17/2024 PREOPERATIVE DIAGNOSES: 1. 8-weeks status post lumbar decompression and noninstrumented fusion with postoperative fluid collection and wound dehiscence POSTOPERATIVE DIAGNOSES: 1. 8-weeks status post lumbar decompression and noninstrumented fusion with postoperative fluid collection and wound dehiscence OPERATION PERFORMED: 1. Lumbar I&D with wound closure SURGEON: Randi Burris MD POSITION CLASSIFIER: ALEXANDREA Corcoran PA-C assisted throughout the procedure [...] signed by Randi Burris MD 04/17/24 15:05 [facility]02-09-2025 NoteChief Complaint Wound dehiscence Reason for Consultation Lumbar wound dehiscence History of Present Illness The patient is a 83-year-old male who is status post lumbar decompression and noninstrumented fusion done 02/20/25 at [facility] with Dr. Man. He was admitted to [facility] on Tuesday from office for lumbar I&D due to wound drainage and postoperative fluid collection on MRI. Anesthesia cancelled surgery due to LE swelling, elevated BNP and recent Echo in Feb, no cardiology on staff. He was transferred to [facility] yesterday for surgical clearance. c/o back pain [...] [facility] TIDWELL, Randi Mesa 04/17/2024 14:49 [facility] 04-15-2024 NotePatient seen and examined in AM. Chart reviewed and discussed plan of care with patient and his daughter at bedside. Notably patient had lumbar spine surgery done with Dr Burris, due to concerns for wound dehiscence he was transferred to inpatient hospital for debridement. Patient was transferredhere from [facility] as there was some concern for decompensated CHF, no cardiology service was present at [facility] patient states he follows with cardiology?[facility] for appropriate clearance and restratification prior to orthopedic surgery. Near his [place] in [place]. He did receive appropriate cardiac clearance prior [...] signed by YordanJuan camara DO 04/15/24 11:09 [facility]02-09-2025 NoteAssessment/Plan Brief Hospital Course Summary: [...] in our hospital Dr. [place]. Through [facility]. EKG performed patient has a known [...] presented as a transfer from [facility] for cardiac clearance the patient has been [...] time the patient was fluid overloaded at [facility] currently he is not in our hospital the patient states that his left lower extremity is chronically erythematous which has beenongoing for the past several years likely from venous congestion. The patient has ejection % currently he is not on room air. [...] by Moises TIDWELL, Crystal Byrd 04/15/24 06:21 [facility] 03-14-2024 Progress note Author Michele Knight [facility] Date/TimeJanuary 2024 4:[place] [address] Hospitalist Progress Note Signed Patient: Tavo Wallis Jr MR# : [id number] : 1940 Acct:[id number] Age/Sex: 83 / M Adm Date: 5 Loc: Room: [address] [place] [address] Type: ADM IN Attending Dr: Michele Knight [...] lumbar decompression surgery 2 weeks ago in [facility]. No complications otherwise. PT OT [...] <Electronically signed by Michele Knight MD> 03/14/24 [facility] Work Phone: 1(220) 558-607001-08-2025 [place] [address] Hospitalist Progress Note Signed Patient: Tavo Wallis Jr MR# : [id number] : 1940 Acct:[id number] Age/Sex: 83 / M Adm Date: 5 Loc: 3T Room: [address] [place] [address] Type: ADM IN Attending Dr: Michele Knight [...] lumbar decompression surgery 2 weeks ago in [facility]. No complications otherwise. PT OT [...] MD 03/14/24 0852 Signed By: 03/14/24 1613 [facility]01-08-2025 Hospital Discharge instructions Additional Instructions SNF [...] hours -Care to be managed by SNF providers.[facility] Work Phone: 1(557) 696-445801-07-2025 Progress note Author Michele Knight [facility] HospitalNote Date/TimeJanuary 2024 6:00pm[place]of[place] [address] Hospitalist Progress Note Signed Patient: Tavo Wallis Jr MR# : [id number] : 1940 Acct:[id number] Age/Sex: 83 / M Adm Date: 5 Loc: 3T Room: 7B5943-8 Type: ADM IN Attending Dr: Michele Knight [...] lumbar decompression surgery 2 weeks ago in [facility]. No complications otherwise. PT OT [...] signed by Michele Knight MD> 03/13/24 1800 [facility] Work Phone: 1(606) 379-447901-07-2025 [place] [address] Hospitalist Progress Note Signed Patient: Tavo Wallis Jr MR# : [id number] : 1940 Acct:[id number] Age/Sex: 83 / M Adm Date: 5 Loc: 3T Room: [address] [place] [address] Type: ADM IN Attending Dr: Michele Knight [...] lumbar decompression surgery 2 weeks ago in [facility]. No complications otherwise. PT OT [...] MD 03/13/24 1430 Signed By: 03/13/24 1800 [facility]01-06-2025 Progress note Author Michele Knight [facility] HospitalNote Date/TimeJanuary 2024 5:12p[place] [address] Hospitalist Progress Note Signed Patient: Tavo Wallis Jr MR# : [id number] : 1940 Acct:[id number] Age/Sex: 83 / M Adm Date: 5 Loc: 3T Room: [address] [place] [address] Type: ADM IN Attending Dr: Michele Knight [...] lumbar decompression surgery 2 weeks ago in [facility]. No complications otherwise. PT OT [...] <Electronically signed by Michele Knight MD> 03/12/24 6953 [facility] Work Phone: 1(646) 420-230601-06-2025 [place] [address] Hospitalist Progress Note Signed Patient: Tavo Wallis Jr MR# : [id number] : 1940 Acct:[id number] Age/Sex: 83 / M Adm Date: 5 Loc: 3T Room: [address] [place] [address] Type: ADM IN Attending Dr: Michele Knight [...] lumbar decompression surgery 2 weeks ago in [facility]. No complications otherwise. PT OT [...] Knight MD 03/12/241705 Signed By: 03/12/24 1712 [facility]01-05-2025 Progress note Author Mitchell Reyes [facility] HospitalNote Date/TimeJanuary 2024 12:33pm [place] [address] Hospitalist Progress Note Signed Patient: Tavo Wallis Jr MR# : [id number] : 1940 Acct:[id number] Age/Sex: 83 / M Adm Date: 5 Loc: Room: [address] [place] [address] Type: ADM IN Attending Dr: Mitchell Reyes [...] lumbar decompression surgery 2 weeks ago in [facility]. No complications otherwise. PT OT [...] Tablet PO 03/11/25 06:29 Not Given DAILY@0630 [facility] Eszopiclone 3 Mg 3 mg 03/10/24 22:00 [...] signed by Mitchell Reyes MD> 03/11/24 1233 [facility] Work Phone: 1([phone]) 267-276901-05-2025 [place] [address] Hospitalist Progress Note Signed Patient: Tavo Wallis Jr MR# : [id number] : 1940 Acct:[id number] Age/Sex: 83 / M Adm Date: 5 Loc: Room: [address] [place] [address] Type: ADM IN Attending Dr: Mitchell Reyes [...] lumbar decompression surgery 2 weeks ago in [facility]. No complications otherwise. PT OT [...] Tablet PO 03/11/25 06:29 Not Given DAILY@0630 [facility] Eszopiclone 3 Mg 3 mg 03/10/24 22:00 [...] MD 03/11/24 1231 Signed By: 03/11/24 1233 [facility]01-04-2025 History and physical note Author Mitchell Reyes [facility] HospitalNote Date/TimeJanuary 2024 3:49pmLes[place] [id number] Hospitalist H&P Signed Patient: Tavo Wallis Jr MR# : [id number] : 1940 Acct:[id number] Age/Sex: 83 / M Adm Date: 5 Loc: 3T Room: [address] [place] [address] Type: ADM IN Attending Dr: Mitchell Reyes MD Copies to: MD Opal Peters,DO~ HPI DATE OF EXAMINATION: 03/10/24 HISTORY OF PRESENT ILLNESS: Patient is a 89-year-old male, who was well until approximately 2 weeks ago, when he underwent spinal decompression surgery in [facility] about 2 weeks prior to presentation. He [...] pressure measured ultrasonographically is fairly normal at keaadu12 cc water. LV contractility is slightly decreased. [...] Dyslipidemia Gout Sleep apnea Obesity class I [facility] Medical History Insomnia Hypothyroidism Hypertension Constipation BPH [...] % (Auto) 11.9 % (.) 03/10/24 10:00 [place] % (Auto) 9.2 % (.) 03/10/24 10:00 Eos % (Auto) 5.9 % (.) 03/10/24 10:00 Baso % (Auto) 1.4 % (.) 03/10/24 10:00 Nucleat RBC Rel Count 0.0 /100 WBC (0-0.5) 03/10/24 10:00 Neut # (Auto) 6.1 x10E3/uL (1.8-7.7) 03/10/24 10:00 Lymph # (Auto) 1.0 x10E3/uL (1.00-4.8) 03/10/24 10:00 [place] # (Auto) 0.8 x10E3/uL (0.0-0.8) 03/10/24 10:00 [...] signed by Mitchell Reyes MD> 03/10/24 1549 [facility] Work Phone: 1(521) 425-424601-04-2025 [place] [address] Hospitalist H&P Signed Patient: Tavo Wallis Jr MR# : [id number] : 1940 Acct:[id number] Age/Sex: 83 / M Adm Date: 5 Loc: Room: [address] [place] [address] Type: ADM IN Attending Dr: Mitchell Reyes MD Copies to: MD Opal Peters,DO~ HPI DATE OF EXAMINATION: 03/10/24 HISTORY OF PRESENT ILLNESS: Patient is a 89-year-old male, who was well until approximately 2 weeks ago, when he underwent spinal decompression surgery in [facility] about 2 weeks prior to presentation. He [...] Dyslipidemia Gout Sleep apnea Obesity class I [facility] Medical History Insomnia Hypothyroidism Hypertension Constipation BPH [...] % (Auto) 11.9 % (.) 03/10/24 10:00 [place] % (Auto) 9.2 % (.) 03/10/24 10:00 Eos % (Auto) 5.9 % (.) 03/10/24 10:00 Baso % (Auto) 1.4 % (.) 03/10/24 10:00 Nucleat RBC Rel Count 0.0 /100 WBC (0-0.5) 03/10/24 10:00 Neut # (Auto) 6.1 x10E3/uL (1.8-7.7) 03/10/24 10:00 Lymph # (Auto) 1.0 x10E3/uL (1.00-4.8) 03/10/24 10:00 [place] # (Auto) 0.8 x10E3/uL (0.0-0.8) 03/10/24 10:00 [...] MD 03/10/24 1349 Signed By: 03/10/24 1549 [facility]01-04-2025 Evaluation note* Diagnosis Onset Date Resolution Status Admit Date LIS (acute kidney injury) acuteJanuary 2024 11:26amCOVID-19acuteJanuary 2024 11:26amFatigueacute Eliza 2024 11:26am [facility] Work Phone: 1(952) 306-280312-23-2024 History of Present illness Narrative* Randa King [...] a supine position. COVID-19 & Influenza Combo [[id number]] Collected: 02/25/24 1109 Updated: 02/25/24 1153 Specimen Source: Nasopharyngeal Swab SARS-CoV-2 RNA, RT PCR NOT DETECTED Comment: Influenza A NOT DETECTED Influenza B NOT DETECTED Lactic Acid, Sepsis 1.0 XR CHEST PORTABLE [[id number]] Collected: 02/24/242041 Updated: 02/24/242142 Narrative: 1 view chest x-ray Comparison: None Findings: Jpdqdveb-ld-sgawpn cardiomegaly. Small left and trace right pleural effusions. Cephalization pulmonary vasculature with diffusely increased interstitial markings and diffuse hazy alveolar opacity. No pneumothorax. Impression: 1. Scctgvpl-hd-mpxmjo cardiomegaly with pulmonary edema and pleural effusions. [...] Chau, PT - 02/27/2024 8:46 AM EST [facility] INPATIENT PHYSICAL THERAPY DAILY NOTE STRZ ICU STEPDOWN TELEMETRY 4K - 4K-25/025-A Discharge Recommendations: Subacte/Retirement Facility Equipment Recommendations: No (Patient has RW, [...] Level of Assist for Transfers: Independent Active Fig Washer: Yes (Daughter able to transport until cleared to drive again.) Additional Comments: independent [employer], use of cane mainly and uses various [...] in standing Exercise: None Functional Outcome Measures: [facility] (6 CLICK) BASIC MOBILITY AM-[facility] Inpatient Mobility Raw Score : 13 AM-[facility] Inpatient T-Scale Score : 36.74 Modified [place] Scale: Not Applicable ASSESSMENT: Assessment: Patient progressing [...] Supervision in orderto assist with home entry. Typing Pool Supervisor Goals Time Frame for Mcc Goals : N/A due to ELOS Following [...] a supine position. COVID-19 & Influenza Combo [[id number]] Collected: 02/25/24 1109 Updated: 02/25/24 1153 Specimen Source: Nasopharyngeal Swab SARS-CoV-2 RNA, RT PCR NOT DETECTED Comment: Influenza A NOT DETECTED Influenza B NOT DETECTED Lactic Acid, Sepsis 1.0 XR CHEST PORTABLE [[id number]] Collected: 02/24/242041 Updated: 02/24/242142 Narrative: 1 view chest x-ray Comparison: None Findings: Bnisjyas-xc-ezmjix cardiomegaly. Small left and trace right pleural effusions. Cephalization pulmonary vasculature with diffusely increased interstitial markings and diffuse hazy alveolar opacity. No pneumothorax. Impression: 1. Xwjgxbjc-rm-pkoqsp cardiomegaly with pulmonary edema and pleural effusions. [...] Steele OTA - 02/26/2024 1:58 PM EST [facility] ICU STEPDOWN TELEMETRY 4K Occupational Therapy Daily Note Discharge Recommendations: Continue to assess pending progress, ECF with OT, and Patient would benefit from continued OT at discharge Equipment Recommendations: No continue to monitor Time In: 1316 Time Out: 1357 Timed Code Treatment Minutes: 41 Minutes Minutes: 41 Date: 02/26/2024 Patient Name: Tavo Wallis, Gender: male Room: [address] [place] [address] : 1940 (83 y.o.) Referring Practitioner: Randi [...] in the past year?: Yes (~5) Active Fig Washer: Yes (Daughter able to transport until cleared to drive again.) Mode of Transportation: Truck Additional Comments: independent [employer], use of cane mainly and uses various [...] BSC No LOB, very unsteady throughout Modified [place] Scale: Not Applicable ASSESSMENT: Activity Tolerance: Patient [...] with SBA to complete sink side grooming. Mcc Goals Time Frame for Typing Pool Supervisor Goals : None due to ELOS Following session, patient left in safe position with all fall risk precautions in place. * Nayely Chau PT - 02/26/2024 10:40 AM EST [facility] INPATIENT PHYSICAL THERAPY DAILY NOTE STRZ ICU STEPDOWN TELEMETRY 4K - 4K-25/025-A Discharge Recommendations: Subacte/Retirement Facility Equipment Recommendations: No (Patient has RW, [...] Level of Assist for Transfers: Independent Active Fig Washer: Yes (Daughter able to transport until cleared to drive again.) Additional Comments: independent [employer], use of cane mainly and uses various [...] exercises with good demo. Functional Outcome Measures: [facility] (6 CLICK) BASIC MOBILITY AM-[facility] Inpatient Mobility Raw Score : 13 AM-[facility] Inpatient T-Scale Score : 36.74 Modified [place] Scale: Not Applicable ASSESSMENT: Assessment: fair progression, [...] Supervision in orderto assist with home entry. Mcc Goals Time Frame for Mcc Goals : N/A due to ELOS Following [...] examined independently by me. Agree with Physician professor of environmental science note above. Discussed w/ patient's daughter. Continue therapy. SNF at discharge. Rnadi Burris MD 02/26/2024 2:10 PM * Randa [...] a supine position. COVID-19 & Influenza Combo [[id number]] Collected: 02/25/24 1109 Updated: 02/25/24 1153 Specimen Source: Nasopharyngeal Swab SARS-CoV-2 RNA, RT PCR NOT DETECTED Comment: Influenza A NOT DETECTED Influenza B NOT DETECTED Lactic Acid, Sepsis 1.0 XR CHEST PORTABLE [[id number]] Collected: 02/24/242041 Updated: 02/24/242142 Narrative: 1 view chest x-ray Comparison: None Findings: Zwwxcmyb-ni-xvzeas cardiomegaly. Small left and trace right pleural effusions. Cephalization pulmonary vasculature with diffusely increased interstitial markings and diffuse hazy alveolar opacity. No pneumothorax. Impression: 1. Eumqxtln-ss-dxrakd cardiomegaly with pulmonary edema and pleural effusions. [...] Russell SLP - 02/25/2024 1:24 PM EST [facility] SPEECH THERAPY STRZ ICU STEPDOWN TELEMETRY 4K Clinical Swallow Evaluation + Dysphagia Therapy Discharge Recommendations: Home with Home Exercise Program DIET ORDER RECOMMENDATIONS AFTER EVALUATION: Regular, thin liquids Strategies: Full Upright Position, Small Bite/Sip, Pulmonary Monitoring, Alternate Solids and Liquids, Limit Distractions, and Monitor for Fatigue GERIATRIC NURSE Individual Minutes Time In: 930 Time Out: 947 Minutes: 17 Timed Code Treatment Minutes: 0 Minutes CSE: 9 minutes Dysphagia Therapy: 8 minutes Date: 02/25/2024 Patient Name: Tavo Wallis CSN: [id number] : 1940 (83 y.o.) Gender: male Referring Physician: Randa King MD Diagnosis: Lumbar stenosis with neurogenic claudication History of Present Illness/Injury: Patient admitted to [facility] for above dx. Per chart review, The [...] Evaluation of Education: Verbalizes understanding PLAN: Skilled GERIATRIC NURSE intervention on acute care 1-3 x per [...] assist with mobility and overall pulmonary health GROUP HOME GOALS: No LTGs established due to short ELOS. Lula Russell M.A., [facility]-GERIATRIC NURSE [id number] * Gustabo May PA - 02/25/2024 8:05 [...] Solorio, OT - 02/24/2024 2:07 PM EST [facility] ICU STEPDOWN TELEMETRY 4K Occupational Therapy Daily Note Discharge Recommendations: Subacute/long term facility Equipment Recommendations: No continue to monitor Time In: 830 Time Out: 908 Timed Code Treatment Minutes: 38 Minutes Minutes: 38 Date: 02/24/2024 Patient Name: Tavo Wallis, Gender: male Room: [address] [place] [address] : 1940 (83 y.o.) Referring Practitioner: Randi [...] in the past year?: Yes (~5) Active Fig Washer: Yes (Daughter able to transport until cleared to drive again.) Mode of Transportation: Truck Additional Comments: independent [employer], use of cane mainly and uses various [...] with SBA to complete sink side grooming. Typing Pool Supervisor Goals Time Frame for Typing Pool Supervisor Goals : None due to ELOS Following [...] Perez PTA - 02/24/2024 7:50 AM EST [facility] INPATIENT PHYSICAL THERAPY DAILY NOTE STRZ ICU STEPDOWN TELEMETRY 4K - 4K-25/025-A Discharge Recommendations: Subacte/Retirement Facility Equipment Recommendations: No (Patient has RW, [...] Level of Assist for Transfers: Independent Active Fig Washer: Yes (Daughter able to transport until cleared to drive again.) Additional Comments: independent [employer], use of cane mainly and uses various [...] independence with functional mobility. Functional Outcome Measures: [facility] (6 CLICK) BASIC MOBILITY AM-[facility] Inpatient Mobility Raw Score : 14 AM-[facility] Inpatient T-Scale Score : 38.1 Modified Flaco [...] Supervision in orderto assist with home entry. Mcc Goals Time Frame for Mcc Goals : N/A due to ELOS Following [...] EST Spiritual Health History and Assessment/Progress Note [facility] Loneliness/Social Isolation, , , Name: Tavo Wallis Age: 83 y.o. Sex: male Language: Egyptian Uatsdin: None Lumbar stenosis with neurogenic claudication Date: 02/23/2024 Total Time Calculated: (P) 8 min Spiritual Assessment [facility] STEPDOWN TELEMETRY 4K Referral/Consult From: Nurse [...] Therapy just started working with patient. Will [place] back to complete echo once therapy is completed. * Mimi Solo OT - 02/23/2024 10:29 AM EST [facility] ICU STEPDOWN TELEMETRY 4K Occupational Therapy Daily Note Discharge Recommendations: ECF with OT and 24 hour assistance or supervision Equipment Recommendations: No continue to monitor Time In: 1029 Time Out: 1053 Timed Code Treatment Minutes: 24 Minutes Minutes: 24 Date: 02/23/2024 Patient Name: Tavo Wallis, Gender: male Room: [address] [place] [address] : 1940 (83 y.o.) Referring Practitioner: Randi [...] in the past year?: Yes (~5) Active Fig Washer: Yes (Daughter able to transport until cleared to drive again.) Mode of Transportation: Truck Additional Comments: independent [employer], 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 Modified [place] Scale: Not Applicable ASSESSMENT: Activity Tolerance: Patient [...] with SBA to complete sink side grooming. Mcc Goals Time Frame for Mcc Goals : None due to ELOS Following session, patient left in safe position with all fall risk precautions in place. * Ann Perez PTA - 02/23/2024 9:11 AM EST [facility] INPATIENT PHYSICAL THERAPY DAILY NOTE [facility] ICU STEPDOWN TELEMETRY 4K - 4K-25/025-A Discharge Recommendations: Subacte/Retirement Facility Equipment Recommendations: No (Patient has RW, [...] Level of Assist for Transfers: Independent Active Fig Washer: Yes (Daughter able to transport until cleared to drive again.) Additional Comments: independent [employer], use of cane mainly and uses various [...] independence with functional mobility. Functional Outcome Measures: [facility] (6 CLICK) BASIC MOBILITY AM-[facility] Inpatient Mobility Raw Score : 14 AM-[facility] Inpatient T-Scale Score : 38.1 Modified Flaco [...] Supervision in orderto assist with home entry. Typing Pool Supervisor Goals Time Frame for Typing Pool Supervisor Goals : N/A due to ELOS Following [...] alert, cooperative. States he is at [facility] for back surgery, knows his surgeons name [...] Ruiz, PT - 02/22/2024 10:44 AM EST [facility] INPATIENT PHYSICAL THERAPY EVALUATION [facility] ICU STEPDOWN TELEMETRY 4K - 4K-25/025-A Discharge Recommendations: Continue to assess pending progress, Subacute/Retirement Facility Equipment Recommendations: No (Patient has RW, [...] in the past year?: Yes (~5) Active Fig Washer: Yes Mode of Transportation: Truck Additional Comments: independent [employer], use of cane mainly and uses various [...] Tested Exercise: None Functional Outcome Measures: Completed [facility] (6 CLICK) BASIC MOBILITY AM-[facility] Inpatient Mobility Raw Score : 14 AM-[facility] Inpatient T-Scale Score : 38.1 Modified [place]: Premorbid Functional Status: Not Applicable Current Functional [...] Supervision in orderto assist with home entry. Mcc Goals Time Frame for Typing Pool Supervisor Goals : N/A due to ELOS Following session, patient left in safe position with all fall risk precautions in place. 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 Additional Comments: independent [employer], use of cane mainly and uses various [...] to visually scan in room for targets AM-[facility] Inpatient Daily Activity Raw Score: 14 AM-[facility] Inpatient ADL T-Scale Score : 33.39 ADL Inpatient CMS 0-100% Score: 59.67 Activity Tolerance: Patient tolerance of treatment: Good treatment tolerance, Limited by fatigue, Limited by medical complications, and Reduced activity pace Functional Outcome Measures: AM-[facility] Inpatient Daily Activity Raw Score: 14 AM-[facility] Inpatient ADL T-Scale Score : 33.39 ADL Inpatient CMS 0-100% Score: 59.67 ADL Inpatient CMS G-Code Modifier : CK Modified [place]: Premorbid Functional Status: Not Applicable Current Functional [...] with SBA to complete sink side grooming. Mcc Goals Time Frame for Typing Pool Supervisor Goals : None due to ELOS AM-[facility] Inpatient Daily [facility]: [facility] T-Scale Score : 33.39 Following [...] alert, cooperative. [facility] [facility], knows his surgeons name [...] sat 77% on 6L NC. Respirations labored. CARBURETOR REBUILDER at pt bedside and placed NPA in [...] with eyes closed comfortably. VSS. 1745: Called [facility] to have nurse update family about room number and that room was awaiting to be cleaned. Stat clean placed on room 1810: Repositioned patient at this time and provided more water, tolerated well 182: Pt resting off and on with eyes closed, easily awakens to voice. 1830: [facility] called pacu for update per family request, update given that pt continuing to await room to finish cleaning 185: Called family to update of patients room being ready and patient being in for transport 185: Emptied 150mls from hemovac drain 185: Pt transported to in stable condition. VSS * Karen Ambrocio RN - 02/21/2024 7:57 AM EST Patient admitted to [facility] room 3 with family at bedside. Bed in low position side rails up call lightin reach. Patient denies questions at this time. Abigail (daughter) [phone] * Edilma Abdul RN - 02/20/2024 9:01 AM EST Called for clearance from Dr Mcintyre * Edilma Abdul RN - 02/15/2024 12:11 PM EST Called [facility] medical records for labs, CXR, EKG and any other testing pt has done for surgery. Had to leave message * Edilma Abdul RN - 02/15/2024 9:57 AM EST PAT call attempted, patient unavailable, left message to please call us back at your earliest convenience; [phone] * Edilma Abdul RN - 02/14/2024 3:[address] Burris for labs, EKG, clearance, and CXR [facility] Discharge instructions* Discharge Instructions* Gustabo [...] already scheduled for an appointment - ext [phone] If any concerning symptoms, such as calf [...] at most local grocery stores, pharmacies, and [employer]. If you have any questions about your [...] directive for healthcare treatment Durable power of associate attorney for health care;Living will Yes, copy in chart -- -- -- Admitting Physician: Randi Burris MD PCP: Opal Ga DO Discharging Nurse: Discharging Hospital Unit/Room#: 4K-25/025-A Discharging Unit Phone Number: Emergency Contact: Extended Emergency Contact Information Primary Emergency Contact: DamiannixonNicole Mobile Relation: Child Teacher Of The Emotionally Disturbed needed? No Past Surgical History: Past Surgical History: Procedure Laterality Date BACK SURGERY x2 lumbar area EYE SURGERY Bilateral catract JOINT REPLACEMENT Bilateral both kness, left hip, both shoulders rotator cuff, LUMBAR FUSION N/A 02/21/2024 L2-5 Decompression and Non Instrumented Fusion performed by Randi Burris MD at [facility] OR Immunization History: Immunization History Administered [...] Assisted Dressing Assisted Toileting Assisted Feeding Assisted Senior Sales Engineer Assisted Med Delivery whole Wound Care Documentation [...] Status Date: 02/22/2024 Readmission Risk Assessment Score: [facility] RISK OF UNPLANNED READMISSION 2.0 15.2 Total Score Discharging to Facility/ Agency Name: [facility] Address: [address] [place] [address] Dialysis Facility (if applicable) Name: Address: Dialysis Schedule: Phone: Fax: Brand Strategist/Director Of Perioperative Services signature: PHYSICIAN SECTION Prognosis: Good Condition at Discharge: Stable Rehab Potential (if transferring to Rehab): Good Recommended Labs or Other Treatments After Discharge: complete course of antibiotic, PT/OT Physician Certification: I certify the above information and transfer of Tavo Wallis is necessary for the continuing treatment of the diagnosis listed and that he requires Retirement Facility for less 30 days. Update Admission H&P: No change in H&P PHYSICIAN SIGNATURE: documented in [facility] History of Present illness Narrative* Tavo [...] 2 3. Chronic atrial fibrillation (Multi) 4. USP current use of anticoagulant therapy 5. Primary [...] exam, discussion and plan. documented in [facility] encounterUniversity [facility] Work Phone: 1(694) 880-529212-12-2024 Instructions* Patient Instructions* Viridiana Walden LPN - [...] from a cardiac standpoint documented in this encounterUniversity [facility]als [facility] Work Phone: [phone]) 245-345712-09-2024 Evaluation note* Author Danna Melgar [facility] 2023 9:28amThe above note written by Danna Melgar LPN, acting as human recorder, note dictated by Dr. Opal Ga. [facility] Work Phone: 1(682) 987-653405-08-2024 History of Present illness Narrative* Tavo Myranda DO Francisco Javier - 07/13/2023 9:40 AM EDT Subjective Tavo Wallis is a 82 y.o. male Chief Complaint Annual Exam 82-year-old gentleman returns for follow-up. He is doing well from a cardiovascular standpoint he is debilitated by his significant osteoarthritis, recent peripheral nerve/ablations performed at [facility] this past year. He has persistent edema [...] exam, discussion and plan. documented in this encounterUniversity Hospitals [facility] Work Phone: 1(930) 131-792905-08-2024 Instructions* Patient Instructions* Hermilo Bell MA - [...] Fall Prevention Education Given documented in this encounterUniversity Hospitals [facility] Work Phone: [phone]) [phone] Evaluation note* Encounter Date Diagnosis Assessment Notes Treatment Notes Treatment Clinical Notes Mar, Lumbar degenerative disc disease (ICD-10 - M51.36) Patient is following with pain management at [facility], had a recent branch block. He is [...] above medication. We will continue to monitor. [facility] 10-02-2023 Evaluation note* Encounter Date Diagnosis Assessment Notes Treatment Notes Treatment Clinical Notes Dec, Insomnia (ICD-10 - G47.00) [facility] Other 09-26-2023 Evaluation note* Encounter Date Diagnosis Assessment Notes Treatment Notes Treatment Clinical Notes Nov, Gout (ICD-10 - M10.9) [facility] Other 07-12-2023 Evaluation note* Encounter Date Diagnosis [...] the care of pain management out of [place]. States the pain is slightly improved and [...] to thin out the secretions. Rx sent [facility] Other 07-05-2023 Evaluation note* Encounter Date Diagnosis Assessment Notes Treatment Notes Treatment Clinical Notes Sep, Hyperlipidemia (ICD-10 - E78.5) Sep,Insomnia (ICD-10 - G47.00) Sep,Hypothyroidism, unspecified (ICD-10 - E03.9) [facility] Other 04-03-2023 Evaluation note* Encounter Date Diagnosis Assessment Notes Treatment Notes Treatment Clinical Notes Jun, Lumbar degenerative disc disease (ICD-10 - M51.36) I am in agreement the patient keep the above medication on hand to use sparingly for back pain and to continue following with Pain Management. The patient states he does still go to the [facility] for hunting trips with a group [...] Jun,Screening for prostate cancer (ICD-10 - Z12.5) [facility] Other 03-28-2023 Evaluation note* Encounter Date Diagnosis Assessment Notes Treatment Notes Treatment Clinical Notes May, Insomnia (ICD-10 - G47.00) [facility] Other 03-07-2023 Evaluation note* Encounter Date Diagnosis Assessment Notes Treatment Notes Treatment Clinical Notes May, Atrial fibrillation (ICD-10 - I4 8.91) [facility] Other 02-09-2023 NoteCONSULTATION CONSULTATION DATE: 04/15/2022 HISTORY [...] clinic in three months' time.[facility] [id number] Evaluation note* Encounter Date Diagnosis Assessment Notes Treatment Notes Treatment Clinical Notes Mar, Lumbar degenerative disc disease (ICD-10 - M51.36) Patient appears to be doing better with physcial therapy. I advised the patient to take the above pain medication as needed and is to continue to follow with Dr. Brambila as scheduled. Patient is to discuss with Dr. Mcnityre tomorrow if he is safe to take the pain medication everyday as he does get relief. Mar,ctinic keratosis (ICD-10 - L57.0) Noted on the scalp. I advised the patient we can freeze this if this does become bothersome. Encouraged patient to wear a hat out in the sun. [facility] Other 12-29-2022 Evaluation note* Encounter Date Diagnosis Assessment Notes Treatment Notes Treatment Clinical Notes Feb, Insomnia (ICD-10 - G47.00) Feb,Hypothyroidism, unspecified (ICD-10 - E03.9) [facility] Other 12-28-2022 Evaluation note* Encounter Date Diagnosis Assessment Notes Treatment Notes Treatment Clinical Notes Feb, Insomnia (ICD-10 - G47.00) Feb,Hypothyroidism, unspecified (ICD-10 - E03.9) [facility] Other 12-15-2022 NoteCONSULTATION CONSULTATION DATE: 02/18/2022 HISTORY [...] with the plan of care.[facility] [id number] Evaluation note* Encounter Date Diagnosis Assessment Notes Treatment Notes Treatment Clinical Notes Feb, Lumbar degenerative disc disease (ICD-10 - M51.36) Daughter feels that patient was doing quite well while he was getting daily PT at [facility], however now that he has home [...] upon examination, continue using the above powder. [facility] Other 11-11-2022 Progress note Author Raji [facility] January 15, 2022 4:51pmNote Date/TimeNov2021 4:[place]pm[place] [address] Hospitalist Progress Note Signed Patient: Tavo Wallis Jr MR# : [id number] : 1940 Acct:[id number] Age/Sex: 81 / M Adm Date: 2 Loc: 3T Room: [address] [place] [address] Type: ADM IN Attending Dr: Raji Ennis [...] mg 01/09/22 14:41 Bisacodyl 10 Mg Supp.Rect WA 01/09/23 14:40 DAILY PRN Constipation Bisacodyl 10 [...] Propionate 1 spray 01/09/22 15:17 Fluticasone Propionate [place] 120 [place]/16 Gm Bottle NARES-BOTH 01/09/23 15:16 QHS PRN [...] tomorrow. Documented By: Raji Ennis MD 01/15/22 7135 Signed By: <Electronically signed by Raji Ennis MD> 01/15/22 1651 [facility] Work Phone: 1(391) 345-199711-11-2022 Progress note Author Frankie Reynolds [facility] January 15, 2022 12:21pmNote Date/TimeNov2021 12:21pm[place]of[place] [address] Infect. Disease Progress Note Signed Patient: Tavo Wallis Jr MR# : [id number] : 1940 Acct:[id number] Age/Sex: 81 / M Adm Date: 2 Loc: Room: 4V6174-0 Type: ADM IN Attending Dr: Raji Ennis [...] Mg Tablet) 300 mg PO DAILY [facility] Stop: 01/10/23 08:59 Last Admin: 01/15/22 08:46 Dose: 300 mg Apixaban (Apixaban 5 Mg Tablet) 5 mg PO BID [facility] Stop: 01/09/23 20:59 Last Admin: 01/15/22 08:46 Dose: 5 mg Atorvastatin Calcium (Atorvastatin 40 Mg Tablet) 40 mg PO QHS ANIBAL Stop: 01/09/23 21:59 Last Admin: 01/14/22 21:32 Dose: 40 mg Bisacodyl (Bisacodyl 10 Mg Supp.Rect) 10 mg WA DAILY PRN PRN Reason: Constipation Stop: 01/09/23 14:40 Bisacodyl (Bisacodyl 5 Mg Tablet.Dr) 10 mg PO DAILY PRN PRN Reason: Constipation Stop: 01/09/23 14:40 Last Admin: 01/14/22 19:57 Dose: 10 mg Bumetanide (Bumetanide 1 Mg Tablet) 1 mg PO DAILY@0800 [facility] Stop: 01/14/23 15:59 Last Admin: 01/15/22 08:46 Dose: 1 mg Docusate Sodium (Docusate 100 Mg Capsule) 100 mg PO BID [facility] Stop: 01/09/23 20:59 Last Admin: 01/15/22 08:46 Dose: 100 mg Fluticasone Propionate (Fluticasone Propionate [place] 120 [place]/16 Gm Bottle) 1 spray NARES-BOTH QHSPRN PRN Reason: Nasal Congestion Stop: 01/09/23 15:16 Magnesium Sulfate (Magnesium Sulf 2gm-*Swfi*) 2 gm in 50 mls @ 25 mls/hr IV DAILY PRN PRN Reason: Magnesium Level < 1.5 Stop: 01/09/23 14:40 Levothyroxine Sodium (Levothyroxine 150 Mcg Tablet) 150 mcg PO DAILY@0630 [facility] Stop: 01/10/23 06:29 Last Admin: 01/15/22 [...] Mg (Tablet) 3 mg PO HS [facility] Stop: 01/11/23 21:59 Last Admin: 01/14/22 21:32 Dose: 3 mg Nystatin (Nystatin 100,000 Unit/Gram Powder 15 Gm Bottle) 1 applic TOPICAL TID [facility] Stop: 01/09/23 21:59 Last Admin: 01/15/22 [...] Meq Tab.Er.Prt) 20 meq PO QPM [facility] Stop: 01/09/23 20:59 Last Admin: 01/14/22 [...] signed by MD Frankie Reynolds> 01/15/22 1221 [facility] Work Phone: [phone] 603-819411-10-2022 Progress note Author Raji Ennis [facility] January 14, 2022 5:43pmNote Date/TimeNov2021 5:43pmSchof[place] [address] Hospitalist Progress Note Signed Patient: Tavo Wallis Jr MR# : [id number] : 1940 Acct:[id number] Age/Sex: 81 / M Adm Date: 2 Loc: Room: [address] [place] [address] Type: ADM IN Attending Dr: Raji Ennis [...] mg 01/09/22 14:41 Bisacodyl 10 Mg Supp.Rect WA 01/09/23 14:40 DAILY PRN Constipation Bisacodyl 10 [...] Propionate 1 spray 01/09/22 15:17 Fluticasone Propionate [place] 120 [place]/16 Gm Bottle NARES-BOTH 01/09/23 15:16 QHS PRN [...] 21:17 Dextrose IV 01/14/22 23:59 Infused Q24H [facility] Infusion Levothyroxine Sodium 150 mcg 01/10/22 06:30 01/14/22 05:54 Levothyroxine 150 Mcg Tablet PO 01/10/23 06:29 150 mcg DAILY@0630 [facility] Administration Magnesium Hydroxide 30 ml 01/09/22 [...] Tablet PO 01/11/23 21:59 3 mg HS AINBAL Administration Nystatin 1 applic 01/09/22 22:00 01/14/22 [...] <Electronically signed by Raji Ennis MD> 01/14/221742 [facility] Work Phone: [phone] 208-428911-10-2022 Progress note Author Frankie Reynolds [facility] January 14, 2022 9:39amNote Date/TimeNov2021 9:39amSch[place] [address] Infect. Disease Progress Note Signed Patient: Tavo Wallis Jr MR# : [id number] : 1940 Acct:[id number] Age/Sex: 81 / M Adm Date: 2 Loc: Room: [address] [place] [address] Type: ADM IN Attending Dr: Raji Ennis [...] Appearance Clear Urine pH 5.5 Ur Specific Randolph 1.012 Urine Protein 30 H Urine Glucose [...] Mg Tablet) 300 mg PO DAILY [facility] Stop: 01/10/23 08:59 Last Admin: 01/14/22 08:04 Dose: 300 mg Apixaban (Apixaban 5 Mg Tablet) 5 mg PO BID [facility] Stop: 01/09/23 20:59 Last Admin: 01/14/22 08:04 Dose: 5 mg Atorvastatin Calcium (Atorvastatin 40 Mg Tablet) 40 mg PO QHS ANIBAL Stop: 01/09/23 21:59 Last Admin: 01/13/22 21:26 Dose: 40 mg Bisacodyl (Bisacodyl 10 Mg Supp.Rect) 10 mg WA DAILY PRN PRN Reason: Constipation Stop: 01/09/23 14:40 Bisacodyl (Bisacodyl 5 Mg Tablet.Dr) 10 mg PO DAILY PRN PRN Reason: Constipation Stop: 01/09/23 14:40 Last Admin: 01/13/22 21:26 Dose: 10 mg Bumetanide (Bumetanide 1 Mg Tablet) 1 mg PO BID@0800,1600 [facility] Stop: 01/13/23 15:59 Docusate Sodium (Docusate 100 Mg Capsule) 100 mg PO BID [facility] Stop: 01/09/23 20:59 Last Admin: 01/14/22 08:03 Dose: 100 mg Fluticasone Propionate (Fluticasone Propionate [place] 120 [place]/16 Gm Bottle) 1 spray NARES-BOTH QHSPRN PRN Reason: Nasal Congestion Stop: 01/09/23 15:16 Magnesium Sulfate (Magnesium Sulf 2gm-*Swfi*) 2 gm in 50 mls @ 25 mls/hr IV DAILY PRN PRN Reason: Magnesium Level < 1.5 Stop: 01/09/23 14:40 Cefepime HCl (Maxipime) 2 gm in 50 mls @ 100 mls/hr IV Q12H [facility] Last Admin: 01/14/22 03:05 Dose: 100 mls/hr Vancomycin HCl 1.25 gm/ (Dextrose) 275 mls @ 183.333 mls/hr IV Q24H [facility] Stop: 01/13/23 18:59 Last Infusion: 01/13/22 21:17 Dose: Infused Levothyroxine Sodium (Levothyroxine 150 Mcg Tablet) 150 mcg PO DAILY@0630 [facility] Stop: 01/10/23 06:29 Last Admin: 01/14/22 05:54 Dose: 150 mcg Magnesium Hydroxide (Magnesium Hydroxide Susp 30 Ml Udc) 30 ml PO BID PRN PRN Reason: Constipation Stop: 01/09/23 14:40 Magnesium Oxide (Magnesium Oxide 400 Mg Tablet) 400 mg PO DAILY [facility] Stop: 01/10/23 08:59 Last Admin: 01/14/22 08:04 Dose: 400 mg Nitroglycerin (Nitroglycerin 0.4 Mg Tab.Subl) 0.4 mg SUBLINGUAL Q5MIN.X3 PRN PRN Reason: Chest Pain Stop: 01/09/23 14:40 Pom Eszopiclone 3 Mg (Tablet) 3 mg PO HS [facility] Stop: 01/11/23 21:59 Last Admin: 01/13/22 21:27 Dose: 3 mg Nystatin (Nystatin 100,000 Unit/Gram Powder 15 Gm Bottle) 1 applic TOPICAL TID [facility] Stop: 01/09/23 21:59 Last Admin: 01/14/22 [...] normal limits Documented By: Farnkie Reynolds MD 01/14/22934 Signed By: <Electronically signed by MD Frankie Reynolds> 01/14/2202 [facility] Work Phone: [phone]) 922-636311-09-2022 Progress note Author Mani Dickens [facility] January 13, 2022 6:10pmNote Date/TimeNov2021 8:13[place] [id number] Neurology Progress Note Signed with Addenda Patient: Tavo Wallis Jr MR# : [id number] : 1940 Acct:[id number] Age/Sex: 81 / M Adm Date: 2 Loc: Room: [address] [place] [address] Type: ADM IN Attending Dr: Raji Ennis [...] extremities * Unable to test finger-nose or [id number]-[id number]-vecf due to drowsiness REFLEX EXAM: * 1/4 [...] <Electronically signed by MEI Knight> 01/13/22 1520 [facility] Work Phone: [phone] Progress note Author Raji [facility] January 13, 2022 3:44pmNote Date/TimeNovember 2021 3:27pmSchofield[place] [address] Hospitalist Progress Note Signed Patient: Tavo Wallis MR# : [id number] : 1940 Acct:[id number] Age/Sex: 81 / M Adm Date: 2 Loc: 3T Room: [address] [place] [address] Type: ADM IN Attending Dr: Raji Ennis [...] mg 01/09/22 14:41 Bisacodyl 10 Mg Supp.Rect WA 01/09/23 14:40 DAILY PRN Constipation Bisacodyl 10 mg 01/09/22 14:41 01/12/22 08:22 Bisacodyl 5 Mg Tablet.Dr PO 01/09/23 14:40 10 mg DAILY PRN Administration Constipation Bumetanide 1 mg 01/13/22 16:00 Bumetanide 1 Mg Tablet PO 01/13/23 15:59 BID@0800,1600 [facility] Docusate Sodium 100 mg 01/09/22 21:00 01/13/22 09:43 Docusate 100 Mg Capsule PO 01/09/23 20:59 100 mg BID ANIBAL Administration Fluticasone Propionate 1 spray 01/09/22 15:17 Fluticasone Propionate [place] 120 [place]/16 Gm Bottle NARES-BOTH 01/09/23 15:16 QHS PRN Nasal Congestion Magnesium Sulfate 2 gm in 50 mls @ 25 mls/hr 01/09/22 14:41 Magnesium Sulf 2gm-*Swfi* IV 01/09/23 14:40 DAILY PRN Magnesium Level < 1.5 Cefepime HCl 2 gm in 50 mls @ 100 mls/hr 01/12/22 15:06 01/13/22 03:07 Maxipime IV 100 mls/hr Q12H ANIABL Administration Levothyroxine Sodium 150 mcg 01/10/22 06:30 [...] signed by Raji Ennis MD> 01/13/22 1544 [facility] Work Phone: [phone] 755-191311-09-2022 Consult note Author Frankie Reynolds [facility] January 13, 2022 10:45amNote Date/TimeNovember 2021 10:45amLeslie [place] [id number] Infect. Disease Consult Note Signed Patient: Tavo Wallis Jr MR# : [id number] : 1940 Acct:[id number] Age/Sex: 81 / M Adm Date: 2 Loc: 3T Room: [address] [place] [address] Type: ADM IN Attending Dr: Raji Ennis [...] negative unless noted below or in HPI [facility] Attestation Statement: The following information was validated [...] Bisacodyl (Bisacodyl 10 Mg Supp.Rect) 10 mg WA DAILY PRN PRN Reason: Constipation Stop: 01/09/23 14:40 Bisacodyl (Bisacodyl 5 Mg Tablet.Dr) 10 mg PO DAILY PRN PRN Reason: Constipation Stop: 01/09/23 14:40 Last Admin: 01/12/22 08:22 Dose: 10 mg Bumetanide (Bumetanide 1 Mg/4 Ml Vial) 1 mg IV-PUSH BID@0800,1600 [facility] Stop: 01/13/23 07:59 Last Admin: 01/13/22 09:43 Dose: 1 mg Docusate Sodium (Docusate 100 Mg Capsule) 100 mg PO BID [facility] Stop: 01/09/23 20:59 Last Admin: 01/13/22 09:43 Dose: 100 mg Fluticasone Propionate (Fluticasone Propionate [place] 120 [place]/16 Gm Bottle) 1 spray NARES-BOTH QHSPRN PRN Reason: Nasal Congestion Stop: 01/09/23 15:16 Magnesium Sulfate (Magnesium Sulf 2gm-*Swfi*) 2 gm in 50 mls @ 25 mls/hr IV DAILY PRN PRN Reason: Magnesium Level < 1.5 Stop: 01/09/23 14:40 Cefepime HCl (Maxipime) 2 gm in 50 mls @ 100 mls/hr IV Q12H [facility] Last Admin: 01/13/22 03:07 Dose: 100 mls/hr Levothyroxine Sodium (Levothyroxine 150 Mcg Tablet) 150 mcg PO DAILY@0630 [facility] Stop: 01/10/23 06:29 Last Admin: 01/13/22 06:26 Dose: 150 mcg Magnesium Hydroxide (Magnesium Hydroxide Susp 30 Ml Udc) 30 ml PO BID PRN PRN Reason: Constipation Stop: 01/09/23 14:40 Magnesium Oxide (Magnesium Oxide 400 Mg Tablet) 400 mg PO DAILY [facility] Stop: 01/10/23 08:59 Last Admin: 01/13/22 09:43 Dose: 400 mg Nitroglycerin (Nitroglycerin 0.4 Mg Tab.Subl) 0.4 mg SUBLINGUAL Q5MIN.X3 PRN PRN Reason: Chest Pain Stop: 01/09/23 14:40 Pom Eszopiclone 3 Mg (Tablet) 3 mg PO HS [facility] Stop: 01/11/23 21:59 Last Admin: 01/12/22 22:51 Dose: 3 mg Nystatin (Nystatin 100,000 Unit/Gram Powder 15 Gm Bottle) 1 applic TOPICAL TID [facility] Stop: 01/09/23 21:59 Last Admin: 01/13/22 [...] appear consistent with acute gout. Documented By: Frnakie Reynolds MD 01/13/22 1033 Signed By: <Electronically signed by MD Frankie Reynolds> 01/13/22 1049 [facility] Work Phone: 1(617) 282-599011-08-2022 Progress note Author W Be Mcintyre [facility] January 12, 2022 6:11pmNote Date/TimeNov2021 6:11pm[place]of[place] [address] Cardiology Progress Note Signed Patient: Tavo Wallis Jr MR# : [id number] : 1940 Acct:[id number] Age/Sex: 81 / M Adm Date: 2 Loc: Room: [address] [place] [address] Type: ADM IN Attending Dr: Raji Ennis [...] % (Auto) 76.3 Lymph % (Auto) 12.2 [place] % (Auto) 9.1 Eos % (Auto) 1.9 Baso % (Auto) 0.5 Neut # (Auto) 7.7 Lymph # (Auto) 1.2 [place] # (Auto) 0.9 H Eos # (Auto) [...] 2.9 Globulin (PEP) 2.4 Albumin/Globulin (PEP) 1.2 Tmtyo-0-Hdjpdbkgq 0.4 Jppps-2-Tqycvqvqp 0.7 Beta Globulins 0.6 L Gamma Globulins 0.8 M-Franky Not observed PEP Note IgG 816 IgA 171 IgM 105 Serum Immunofixation 01/12/22 06:42 Corrected WBC Uncorrected WBC Count RBC Hgb Hct MCV MCH MCHC RDW Plt Count MPV Neut % (Auto) Lymph % (Auto) [place] % (Auto) Eos % (Auto) Baso % (Auto) Neut # (Auto) Lymph # (Auto) [place] # (Auto) Eos # (Auto) Baso # (Auto) Nucleated RBC % (auto) PHA Creatinine Clear Sodium Potassium Chloride Carbon Dioxide Anion Gap BUN Creatinine Est GFR ( Amer) Est GFR (Non-Af Amer) Glucose Calcium C-Reactive Prot, Quant 8.4 H Serum Total Protein Albumin (Send Out) Globulin (PEP) Albumin/Globulin (PEP) Dvlyt-9-Kgdejtyyo Mcmsf-4-Pxawyvwmb Beta Globulins Gamma Globulins M-Franky PEP Note [...] signed by Bhupinder Mcintyre DO> 01/12/22 1811 [facility] Work Phone: 1(450) 107-855111-08-2022 Progress note Author Raji Ennis [facility] January 12, 2022 4:38pmNote Date/TimeNov2021 4:38pmSchof[place] [address] Hospitalist Progress Note Signed Patient: Tavo Wallis Jr MR# : [id number] : 1940 Acct:[id number] Age/Sex: 81 / M Adm Date: 2 Loc: Room: [address] [place] [address] Type: ADM IN Attending Dr: Raji Ennis [...] mg 01/09/22 14:41 Bisacodyl 10 Mg Supp.Rect WA 01/09/23 14:40 DAILY PRN Constipation Bisacodyl 10 [...] Propionate 1 spray 01/09/22 15:17 Fluticasone Propionate [place] 120 [place]/16 Gm Bottle NARES-BOTH 01/09/23 15:16 QHS PRN [...] <Electronically signed by Raji Ennis MD> 01/12/228 [facility] Work Phone: 1(130) 360-559411-08-2022 Progress note Author Mani Dickens [facility] January 12, 2022 4:10pmNote Date/TimeNov2021 8:19[place] [address] Neurology Progress Note Signed Patient: Tavo Wallis Jr MR# : [id number] : 1940 Acct:[id number] Age/Sex: 81 / M Adm Date: 2 Loc: Room: [address] [place] [address] Type: ADM IN Attending Dr: Raji Ennis [...] extremities * Unable to test finger-nose or qeny-jb-cjpb due to drowsiness REFLEX EXAM: * 1/4 [...] the plan of care and confirmed the PHARMACY OPERATIONS MANAGER note The patient is an 81-year-old [...] signed by MD Mani Dickens> 01/12/22 1610 [facility] Work Phone: 1(325) [phone] Progress note Author Raji Ennis [facility] January 11, 2022 5:04pmNote Date/TimeNov2021 5:[address] [address] Hospitalist Progress Note Signed Patient: Tavo Wallis Jr MR# : [id number] : 1940 Acct:[id number] Age/Sex: 81 / M Adm Date: 2 Loc: Room: [address] [place] [address] Type: ADM IN Attending Dr: Raji Ennis [...] mg 01/09/22 14:41 Bisacodyl 10 Mg Supp.Rect WA 01/09/23 14:40 DAILY PRN Constipation Bisacodyl 10 [...] Propionate 1 spray 01/09/22 15:17 Fluticasone Propionate [place] 120 [place]/16 Gm Bottle NARES-BOTH 01/09/23 15:16 QHS PRN [...] 22:00 Tablet PO 01/11/23 21:59 HS [facility] Nystatin 1 applic 01/09/22 22:00 [...] prophylaxis Documented By: Raji Ennis MD 01/11/22 3977 Signed By: <Electronically signed by Raji Ennis MD> 01/11/22 0364 [facility] Work Phone: 1(560) 496-522311-07-2022 Progress note Author Mani Dickens [facility] January 11, 2022 5:02pmNote Date/TimeNov2021 8:55[place] [address] Neurology Progress Note Signed Patient: JadynTavo sevilla Jr MR# : [id number] : 1940 Acct:[id number] Age/Sex: 81 / M Adm Date: 2 Loc: 3T Room: [address] [place] [address] Type: ADM IN Attending Dr: Raji Ennis [...] knee to all modalities. 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 The patient is an 81-year-old [...] signed by MD Mani Dickens> 01/11/22 170 [facility] Work Phone: 1(721) 351-262111-07-2022 Progress note Author W Be Mcintyre [facility] January 11, 2022 2:09pmNote Date/TimeNov2021 2:09[place]of[place] [address] Cardiology Progress Note Signed Patient: Tavo Wallis Jr MR# : [id number] : 1940 Acct:[id number] Age/Sex: 81 / M Adm Date: 2 Loc: Room: [address] [place] [address] Type: ADM IN Attending Dr: Raji Ennis [...] % (Auto) 73.8 Lymph % (Auto) 13.7 [place] % (Auto) 9.6 Eos % (Auto) 2.2 Baso % (Auto) 0.7 Neut # (Auto) 6.3 Lymph # (Auto) 1.2 [place] # (Auto) 0.8 Eos # (Auto) 0.2 [...] signed by Bhupinder Mcintyre DO> 01/11/22 1409 [facility] Work Phone: 1(689) 934-461111-06-2022 Progress note Author Dharmesh Zavala [facility] January 10, 2022 8:54pmNote Date/TimeNov2021 8:54pm[place] [address] Hospitalist Progress Note Signed Patient: Tavo Wallis Jr MR# : [id number] : 1940 Acct:[id number] Age/Sex: 81 / M Adm Date: 2 Loc: Room: [address] [place] [address] Type: ADM IN Attending Dr: Dharmesh Zavala DO Copies to: ~ Date of Service: 01/10/2022 Subjective Subjective Narrative: When I entered the room the patient tells me that he is getting a pain in the thighs on the top of his legs. He does mention that the people in [place] told me that was due to the [...] mg 01/09/22 14:41 Bisacodyl 10 Mg Supp.Rect WA 01/09/23 14:40 DAILY PRN Constipation Bisacodyl 10 mg 01/09/22 14:41 Bisacodyl 5 Mg Tablet.Dr PO 01/09/23 14:40 DAILY PRN Constipation Bumetanide 1 mg 01/09/22 15:30 01/10/22 14:42 Bumetanide 1 Mg/4 Ml Vial IV-PUSH 01/09/23 15:29 1 mg Q8H ANIBAL Administration Docusate Sodium 100 mg 01/09/22 21:00 01/10/22 08:58 Docusate 100 Mg Capsule PO 01/09/23 20:59 Not Given BID [facility] Fluticasone Propionate 1 spray 01/09/22 15:17 Fluticasone Propionate [place] 120 [place]/16 Gm Bottle NARES-BOTH 01/09/23 15:16 QHS PRN [...] <Electronically signed by Dharmesh Zavala DO> 01/10/222053 [facility] Work Phone: 1([phone] 560-977511-06-2022 Consult note Author Vikas Mane [facility] January 10, 2022 12:35pmNote Date/TimeNov2021 9:20[place], [place] [address] Neurology Consult Note Signed Patient: Tavo Wallis Jr MR# : [id number] : 1940 Acct:[id number] Age/Sex: 81 / M Adm Date: 2 Loc: Room: [address] [place] [address] Type: ADM IN Attending Dr: Dharmesh Zavala DO Copies to: DO Opal Pollock,DO Dharmesh Zavala DO~ HPI Consult Date: 01/10/22 Bath Tester: Vikas Mane DO PMFSH Vaccinated for COVID-19?: [...] Esa Cardoso M.D.01/09/2022 10:11 AM Dictation Location: [place] [address] Renal Ultrasound 01/10/22 05:00 IMPRESSION: No hydronephrosis. Impression dictated by: Esa Cardoso M.D.01/10/2022 9:07 AM Dictation Location: [place] [address] Assessment/Plan (1) Falls frequently: Assessment/Problem Details: HPI: [...] rapidly alternating movements. No limb dysmetria with afxbkm-bhqw-sazide testing. DATA REVIEW: MRI lumbar spine from [...] <Electronically signed by Vikas Mane DO> 01/10/[address] [place] [address] Work Phone: [phone] Consult note Author Marv Urena [facility] January 10, 2022 11:32amNote Date/TimeNov2021 11:32[place] [address] Cardiology Consult Note Signed Patient: Tavo Wallis Jr MR# : [id number] : 1940 Acct:[id number] Age/Sex: 81 / M Adm Date: 2 Loc: Room: [address] [place] [address] Type: ADM IN Attending Dr: Dharmesh Zavala DO Copies to: DO Marv Catalan MD, [facility] Dharmesh Zavala DO~ Cardiology HPI History [...] has adequate social support at home. [facility] Vacc[facility]-19?: Yes Medical History [...] x10E3/uL Lymph # (Auto) 1.0 (1.00-4.8) x10E3/uL [place] # (Auto) 1.0 H (0.0-0.8) x10E3/uL Eos [...] Bradycardia, unspecified Documented By: Marv Urena MD, [facility] 2 1125 Signed By: <Electronically signed by [facility] Marv Urena> 01/10/22 1132 [facility] Work Phone: [phone] 171-520711-05-2022 History and physical note Author Dharmesh Zavala [facility] January 09, 2022 3:30pmNote Date/TimeNov2021 3:30[place] [address] Hospitalist H&P Signed Patient: Tavo Wallis Jr MR# : [id number] : 1940 Acct:[id number] Age/Sex: 81 / M Adm Date: 2 Loc: Room: [address] [place] [address] Type: ADM IN Attending Dr: Dharmesh Zavala [...] that he had seen a urologist in [place] recently. Patient used to be on a number of prostate medications but apparently they were stopped because they are not doing what they are supposed to be doing. The patient andhis daughter have a discussion about what urology was doing for the situation without finding a specific answer. Patient also describes that he has been veryconstipated lately and takes an unspecified xloq-hor-stnddaw generic stool softener. His daughter does point [...] radiofrequency ablations by pain management doctor in [place]. Review of Systems Review of Systems Review [...] % (Auto) 13.5 % (.) 01/09/22 10:36 [place] % (Auto) 14.2 % (.) 01/09/22 10:36 Eos % (Auto) 0.1 % (.) 01/09/22 10:36 Baso % (Auto) 1.0 % (.) 01/09/22 10:36 Neut # (Auto) 4.3 x10E3/uL (1.8-7.7) 01/09/22 10:36 Lymph # (Auto) 0.8 x10E3/uL (1.00-4.8) L 01/09/22 10:36 [place] # (Auto) 0.9 x10E3/uL (0.0-0.8) H 01/09/22 [...] pH 5.5 (5.0-9.0) 01/09/22 12:42 Ur Specific Randolph 1.018 (1.001-1.030) 01/09/22 12:42 Urine Protein Trace [...] 1511 Signed By: <Electronically signed by Dharmesh Zavala, > 01/09/22 1530 [facility] Work Phone: [phone] 190-102511-03-2022 Evaluation note* Encounter Date Diagnosis Assessment Notes [...] in a week to re-evaluate the area. [facility] Other 10-21-2022 Evaluation note* Encounter Date Diagnosis Assessment Notes Treatment Notes Treatment Clinical Notes Dec, Lower extremity edema (ICD-10 - R60.0) [facility] Other 10-13-2022 NoteCONSULTATION CONSULTATION DATE: 12/17/2021 HISTORY [...] next refill, we will change it to [place] 5/325 daily p.r.n. and the patient is encouraged to increase oral fluids and to continue with his stool softener on a daily basis. Heat education was discussed with the patient, as far as frequency and consistency. We will see him in three months' time, unless otherwise indicated, and all questions answered today.[facility] [id number] NoteCONSULTATION CONSULTATION DATE: 11/12/2021 HISTORY OF PRESENT [...] in the office post procedure.[facility] [id number] Evaluation note* Encounter Date Diagnosis Assessment Notes [...] manage his swelling better. He voiced understanding. [facility] Other 07-25-2022 Evaluation note* Encounter Date Diagnosis Assessment Notes Treatment Notes Treatment Clinical Notes Sep, CHF (congestive heart failure) ( ICD-10 - I50.9) [facility] Other 07-08-2022 Evaluation note* Encounter Date Diagnosis Assessment Notes Treatment Notes Treatment Clinical Notes Sep, CHF (congestive heart failure) ( ICD-10 - I50.9) Patient is to hold bumex until re-evaluated in one month per Dr. Opal Ga. [facility] Other 07-07-2022 Evaluation note* Encounter Date Diagnosis Assessment Notes Treatment Notes Treatment Clinical Notes Sep, Atrial fibrillation (ICD-10 - I4 8.91) [facility] Other 07-01-2022 Evaluation note* Encounter Date Diagnosis Assessment Notes Treatment Notes Treatment Clinical Notes Sep, Insomnia (ICD-10 - G47.00) Sep,Gout (ICD-10 - M10.9) [facility] Other 06-27-2022 Evaluation note* Encounter Date Diagnosis [...] is in AF today. He did see intake clerk a few weeks ago and is stable [...] continue with current medications at this time. [facility] Other 06-09-2022 NoteCONSULTATION CONSULTATION DATE: 08/13/2021 This [...] in three months' time unless otherwise indicated. [facility] Signed and Approved by: NATACHA RODARTE . 08/20/2021 16:02:00[facility] [id number] Evaluation note* Encounter Date Diagnosis Assessment Notes Treatment Notes Treatment Clinical Notes May, Insomnia (ICD-10 - G47.00) [facility] Other 01-05-2022 Evaluation note* Encounter Date Diagnosis Assessment Notes Treatment Notes Treatment Clinical Notes Mar, Atrial fibrillation (ICD-10 - I4 8.91) [facility] Other 12-30-2021 Evaluation note* Encounter Date Diagnosis Assessment Notes Treatment Notes Treatment Clinical Notes Feb, Insomnia (ICD-10 - G47.00) [facility] Other 11-15-2021 Evaluation note* Encounter Date Diagnosis [...] Jan,creening for prostate cancer (ICD-10 - Z12.5) [facility] Other 03-19-2007 History general Narrative - Reported* Type Description Date Medical History EKG 05-23-2006 Medical HistoryMRI Lumbar Spine 01-13-11; [facility] CenterMedical Historyleft hip replacement 0-39-44Ibggbzf Pippmyt01/18/14[facility] Historyfollows with urologyMedical History05/11/16 Stress TestMedical Historyf/u with Dr Mcintyre for CHF, A-FibMedical HistoryDr Brambila pain mgmt- back spondylolysisMedical HistoryMUGA Stress test 4/10/17 NOHCMedical History 05/10/2018 Colonscopy due to positive cologuard- polypectomy- Dr. Sweet Historyvenous insufficiencyMedical HistoryHTNMedical HistoryDJDMedical History HypothyroidismMedical HistoryMild CRIMedical HistoryCHFSurgical HistoryLeg and ankleSurgical HistoryBackSurgical HistoryBoth ShouldersSurgical HistoryHand Surgical HistoryNoseSurgical HistoryTumor removed from back that was in the -20-1822Bdgiezda Historyleft hip xnuxtzwccim6-33-33Lhxmwwwf History Bilateral Ueomuhpz4773Rnqxruxs HistoryLTJADON Lezama11/05/19[facility] A-Fib04/2016 [facility] Other [id number] History general Narrative - Reported* Type Description Date Medical History EKG 05-23-2006 Medical HistoryMRI Lumbar Spine [facility]11[facility] 5-82-37Nytpssu Zmqzexr71/18/14-[facility] Historyfollows with urologyMedical History05/11/16 Stress TestMedical Historyf/u with Dr Mcintyre for CHF, A-FibMedical HistoryDr Brambila pain mgmt- back spondylolysisMedical HistoryMUGA Stress test 06/14/16 NOMedical History 05/10/2018 Colonscopy due to positive cologuard- polypectomy- Dr. Sweet Historyvenous insufficiencyMedical HistoryHTNMedical HistoryDJDMedical History HypothyroidismMedical HistoryMild CRIMedical HistoryCHFMedical Paskysd3-4-2526 Bilateral lumbar medical branch blockSurgical HistoryLeg and ankleSurgical HistoryBackSurgical HistoryBoth ShouldersSurgical HistoryHandSurgical History NoseSurgical HistoryTumor removed from back that was in the -75-9166 Surgical Historyleft hip viqgfvdvbcv1-54-36Qtbpakdb HistoryBilateral Cataract 2018Surgical HistoryLTJADON Lezama11/05/19Hospitalization HistoryFR- CHF, A-Fib04/2016 [facility] Other Consult note Author Vikas Mane [facility] January 10, 2022 12:35pmNote Date/TimeNov2021 9:20[place] [address] Neurology Consult Note Signed Patient: Tavo Wallis Jr MR# : [id number] : 1940 Acct:[id number] Age/Sex: 81 / M Adm Date: 2 Loc: 3T Room: [address] [place] [address] Type: ADM IN Attending Dr: Dharmesh Zavala DO Copies to: DO Opal Pollock,DO Dharmesh Zavala DO~ HPI Consult Date: 01/10/22 Bath Tester: Vikas Mane DO PMFSH Vaccinated for COVID-19?: [...] Esa Cardoso M.D.01/09/2022 10:11 AM Dictation Location: [facility] Renal Ultrasound 01/10/22 05:00 IMPRESSION: No hydronephrosis. Impression dictated by: Esa Cardoso M.D.01/10/2022 9:07 AM Dictation Location: [place] [address] Assessment/Plan (1) Falls frequently: Assessment/Problem Details: HPI: [...] rapidly alternating movements. No limb dysmetria with zgmnhc-yexo-wgatkw testing. DATA REVIEW: MRI lumbar spine from [...] signed by Vikas Mane DO> 01/10/22 1235 [facility] Work Phone: Consult note Author Marv Urena [facility] January 10, 2022 11:32amNote Date/TimeNov2021 11:32[place] [id number] Cardiology Consult Note Signed Patient: Tavo Wallis Jr MR# : [id number] : 1940 Acct:[id number] Age/Sex: 81 / M Adm Date: 2 Loc: 3T Room: [address] [place] [address] Type: ADM IN Attending Dr: Dharmesh Zavala DO Copies to: DO Marv Catalan MD, [facility] Dharmesh Zavala, ~ Cardiology HPI History [...] He has adequate social support at home. [facility] Vaccinated for COVID-19?: Yes Medical History (Updated [...] x10E3/uL Lymph # (Auto) 1.0 (1.00-4.8) x10E3/uL [place] # (Auto) 1.0 H (0.0-0.8) x10E3/uL Eos [...] Bradycardia, unspecified Documented By: Marv Urena MD, [facility] 2 1125 Signed By: <Electronically signed by [facility]> 01/10/22 1131 [facility] Work Phone: Consult note Author Frankie Reynolds [facility] January 13, 2022 10:45amNote Date/TimeNovember 2021 10:[place] [id number] Infect. Disease Consult Note Signed Patient: Tavo Wallis Jr MR# : [id number] : 1940 Acct:[id number] Age/Sex: 81 / M Adm Date: 2 Loc: Room: [address] [place] [address] Type: ADM IN Attending Dr: Raji Ennis [...] negative unless noted below or in HPI [facility] Attestation Statement: The following information was validated [...] Bisacodyl (Bisacodyl 10 Mg Supp.Rect) 10 mg WA DAILY PRN PRN Reason: Constipation Stop: 01/09/23 14:40 Bisacodyl (Bisacodyl 5 Mg Tablet.Dr) 10 mg PO DAILY PRN PRN Reason: Constipation Stop: 01/09/23 14:40 Last Admin: 01/12/22 08:22 Dose: 10 mg Bumetanide (Bumetanide 1 Mg/4 Ml Vial) 1 mg IV-PUSH BID@0800,1600 [facility] Stop: 01/13/23 07:59 Last Admin: 01/13/22 09:43 Dose: 1 mg Docusate Sodium (Docusate 100 Mg Capsule) 100 mg PO BID [facility] Stop: 01/09/23 20:59 Last Admin: 01/13/22 09:43 Dose: 100 mg Fluticasone Propionate (Fluticasone Propionate [place] 120 [place]/16 Gm Bottle) 1 spray NARES-BOTH QHSPRN PRN Reason: Nasal Congestion Stop: 01/09/23 15:16 Magnesium Sulfate (Magnesium Sulf 2gm-*Swfi*) 2 gm in 50 mls @ 25 mls/hr IV DAILY PRN PRN Reason: Magnesium Level < 1.5 Stop: 01/09/23 14:40 Cefepime HCl (Maxipime) 2 gm in 50 mls @ 100 mls/hr IV Q12H [facility] Last Admin: 01/13/22 03:07 Dose: 100 mls/hr Levothyroxine Sodium (Levothyroxine 150 Mcg Tablet) 150 mcg PO DAILY@0630 [facility] Stop: 01/10/23 06:29 Last Admin: 01/13/22 06:26 Dose: 150 mcg Magnesium Hydroxide (Magnesium Hydroxide Susp 30 Ml Udc) 30 ml PO BID PRN PRN Reason: Constipation Stop: 01/09/23 14:40 Magnesium Oxide (Magnesium Oxide 400 Mg Tablet) 400 mg PO DAILY [facility] Stop: 01/10/23 08:59 Last Admin: 01/13/22 09:43 Dose: 400 mg Nitroglycerin (Nitroglycerin 0.4 Mg Tab.Subl) 0.4 mg SUBLINGUAL Q5MIN.X3 PRN PRN Reason: Chest Pain Stop: 01/09/23 14:40 Pom Eszopiclone 3 Mg (Tablet) 3 mg PO HS [facility] Stop: 01/11/23 21:59 Last Admin: 01/12/22 22:51 Dose: 3 mg Nystatin (Nystatin 100,000 Unit/Gram Powder 15 Gm Bottle) 1 applic TOPICAL TID [facility] Stop: 01/09/23 21:59 Last Admin: 01/13/22 [...] Meq Tab.Er.Prt) 20 meq PO QPM [facility] Stop: 01/09/23 20:59 Last Admin: 01/12/22 22:51 Dose: 20 meq Sodium Chloride (Sodium Chloride 0.9 % 10 Ml Syringe) 0 ml IV-PUSH PRN PRN PRN Reason: Flush Stop: 01/09/23 09:37 Last Admin: 01/10/22 23:31 Dose: 10 ml Sodium Chloride (Sodium Chloride 0.9 % 10 Ml Syringe) 0 ml IV-PUSH QSHIFT [facility] Stop: 01/09/23 21:59 Last Admin: 01/13/22 [...] signed by MD Frankie Reynolds> 01/13/22 1045 [facility] Work Phone: Consult note Author Bayron farnsworth [facility] HospitalNote Date/TimeMay 2024 2:49[place] [address] Urology Consult Note Signed Patient: Tavo Wallis Jr MR# : [id number] : 1940 Acct:[id number] Age/Sex: 83 / M Adm Date: 5 Loc: Room: [address] [place] [address] Type: ADM IN Attending Dr: Mario Jordan [...] done and negative except as per HPI [facility] Medical History Insomnia Hypothyroidism Hypertension Constipation BPH [...] drinks a day >6 Social History Comments: [facility] Meds Medications and Allergies Allergies fentanyl [...] in place with clear yellow urine 22 [place] three-way Skin: Warm and dry Extremities: No [...] Neut % (Auto) 90.2, Lymph %(Auto) 2.7, [place] % (Auto) 6.8, Eos % (Auto) 0.1, Baso % (Auto) 0.2, Nucleat RBC Rel Count 0.1, Neut# (Auto) 24.1 H, Lymph # (Auto) 0.7 L, [place] # (Auto) 1.8 H, Eos # (Auto) [...] % (Auto) N/A, Lymph % (Auto) N/A, [place] % (Auto) N/A, Eos % (Auto) N/A, Baso % (Auto) N/A, Nucleat RBC Rel Count N/A, Neut # (Auto) N/A, Lymph # (Auto) N/A, [place] # (Auto) N/A, Eos # (Auto) N/A, [...] Turbid A, Urine pH , Ur Specific [place] 1.020,Urine Protein , Urine Glucose (UA) , [...] % (Auto) 93.8, Lymph % (Auto) 4.2, [place] % (Auto) 0.4, Eos % (Auto) 1.3, Baso % (Auto) 0.3, Nucleat RBC Rel Count 0.2, Neut # (Auto)6.3, Lymph # (Auto) 0.3 L, [place] # (Auto) 0.0, Eos # (Auto) 0.1, [...] signed by Bayron Tom MD> 07/13/24 1449 [facility] Work Phone: Consult note Author Bryce Villeda [facility] HospitalNote Date/TimeMay 2024 12:[place] [id number] General Surgery Consult Note Signed Patient: Tavo Wallis Jr MR# : [id number] : 1940 Acct:[id number] Age/Sex: 83 / M Adm Date: 5 Loc: 4 Room: [address] [place] [address] Type: ADM IN Attending Dr: Mario Jordan MD Copies to: MD Sandip Fajardo DO~ History of Present Illness Date of consult: 07/14/2024 Requesting/Attending Provider: Mario Jordan MD History of present illness: Tavo is an 83-year-old male with multiple medical conditions including atrialfibrillation, hypothyroid, hypertension, CHF, who presented to the ER from [facility] for hematuria. The patient was admitted [...] trauma that may have caused the injury. [facility] Medical History Insomnia Hypothyroidism Hypertension Constipation BPH [...] drinks a day >6 Social History Comments: [facility] rehab Allergies & Medications Medications and [...] 500 Mg Tablet) 500 mg PO TID [facility] Stop: 07/12/25 21:59 Last Admin: 07/14/24 09:05 [...] 50 mls @ 12.5 mls/hr IV Q12H [facility] Last Admin: 07/14/24 09:05 Dose: 12.5 mls/hr [...] 3 (Mg Tablet)) 3 mg PO QHS [facility] Stop: 07/20/25 21:59 Oxycodone/Acetaminophen (Oxycodone/Acetaminophen 5-325 Mg Tablet) 1 tab PO Q4H PRN PRN Reason: Pain Scale 4 - 7 Last Admin: 07/13/24 22:05 Dose: 1 tab Polyethylene Glycol (Polyethylene Glycol 3350 17 Gm Powd.Pack) 17 gm PO BID [facility] Stop: 07/14/25 10:04 Potassium Chloride (Potassium Chloride Er 20 Meq Tab.Er.Prt) 20 meq PO DAILY [facility] Stop: 07/13/25 08:59 Last Admin: 07/14/24 09:05 Dose: 20 meq Sennosides (Sennosides Syrup 8.8 Mg/5 Ml Udc) 8.8 mg PO BID [facility] Stop: 07/14/25 10:04 Sodium Chloride (Sodium Chloride [...] Neut % (Auto) 84.9, Lymph %(Auto) 7.4, [place] % (Auto) 6.1, Eos % (Auto) 1.4, Baso % (Auto) 0.2, Nucleat RBC Rel Count 0.1, Neut# (Auto) 13.3 H, Lymph # (Auto) 1.2, [place] # (Auto) 1.0 H, Eos # (Auto) [...] Neut % (Auto) 90.2, Lymph %(Auto) 2.7, [place] % (Auto) 6.8, Eos % (Auto) 0.1, Baso % (Auto) 0.2, Nucleat RBC Rel Count 0.1, Neut# (Auto) 24.1 H, Lymph # (Auto) 0.7 L, [place] # (Auto) 1.8 H, Eos # (Auto) [...] % (Auto) N/A, Lymph % (Auto) N/A, [place] % (Auto) N/A, Eos % (Auto) N/A, Baso % (Auto) N/A, Nucleat RBC Rel Count N/A, Neut # (Auto) N/A, Lymph # (Auto) N/A, [place] # (Auto) N/A, Eos # (Auto) N/A, [...] Turbid A, Urine pH , Ur Specific [place] 1.020,Urine Protein , Urine Glucose (UA) , [...] % (Auto) 93.8, Lymph % (Auto) 4.2, [place] % (Auto) 0.4, Eos % (Auto) 1.3, Baso % (Auto) 0.3, Nucleat RBC Rel Count 0.2, Neut # (Auto)6.3, Lymph # (Auto) 0.3 L, [place] # (Auto) 0.0, Eos # (Auto) 0.1, [...] signed by Bryce Villeda DO> 07/14/24 1221 [facility] Work Phone: Consult note Author Frankie Reynolds [facility] HospitalNote Date/TimeMay 2024 9:59[place] [id number] Infect. Disease Consult Note Signed Patient: Tavo Wallis Jr MR# : [id number] : 1940 Acct:[id number] Age/Sex: 84 / M Adm Date: 5 Loc: Room: [address] [place] [address] Type: ADM IN Attending Dr: Mario Jordan MD Copies to: MD Sandip Fajardo MD~ [facility] Data of Consult Consult date: [...] negative unless noted below or in HPI [facility] Medical History Insomnia Hypothyroidism Hypertension Constipation BPH [...] 500 Mg Tablet) 500 mg PO TID [facility] Stop: 07/12/25 21:59 Last Admin: 07/15/24 08:33 [...] 40 Mg Tablet) 40 mg PO DAILY [facility] Stop: 07/13/25 08:59 Last Admin: 07/15/24 08:33 Dose: 40 mg Bumetanide (Bumetanide 1 Mg Tablet) 1 mg PO DAILY@0800 [facility] Stop: 07/15/25 07:59 Last Admin: 07/15/24 08:33 Dose: 1 mg Vancomycin HCl 1.25 gm/ (Dextrose) 275 mls @ 183.333 mls/hr IV Q12H [facility] Stop: 07/13/25 17:59 Last Admin: 07/15/24 09:47 Dose: 183.33 mls/hr Cefepime HCl (Maxipime) 2 gm in 50 mls @ 12.5 mls/hr IV Q12H [facility] Last Admin: 07/15/24 08:34 Dose: 12.5 mls/hr Levothyroxine Sodium (Levothyroxine 150 Mcg Tablet) 150 mcg PO DAILY.0630 [facility] Stop: 07/13/25 06:29 Last Admin: 07/15/24 08:33 Dose: 150 mcg Magnesium Oxide (Magnesium Oxide 400 Mg Tablet) 400 mg PO DAILY [facility] Stop: 07/13/25 08:59 Last Admin: 07/15/24 08:33 Dose: 400 mg Eszopiclone 3 Mg (Tablet) 3 mg PO QHS [facility] Stop: 07/12/25 21:59 Last Admin: 07/14/24 23:17 Dose: Not Given Pom (Eszopiclone 3 (Mg Tablet)) 3 mg PO QHS [facility] Stop: 07/20/25 21:59 Oxycodone/Acetaminophen (Oxycodone/Acetaminophen 5-325 Mg Tablet) 1 tab PO Q4H PRN PRN Reason: Pain Scale 4 - 7 Last Admin: 07/13/24 22:05 Dose: 1 tab Polyethylene Glycol (Polyethylene Glycol 3350 17 Gm Powd.Pack) 17 gm PO BID [facility] Stop: 07/14/25 10:04 Last Admin: 07/15/24 08:17 Dose: Not Given Potassium Chloride (Potassium Chloride Er 20 Meq Tab.Er.Prt) 20 meq PO DAILY [facility] Stop: 07/13/25 08:59 Last Admin: 07/15/24 08:33 Dose: 20 meq Sennosides (Sennosides Syrup 8.8 Mg/5 Ml Udc) 8.8 mg PO BID [facility] Stop: 07/14/25 10:04 Last Admin: 07/15/24 08:17 [...] @ 12.5 mls/hr IV Q12H [facility] Rx#: [id number] Vancomycin 1.25 gm In Dextrose 275 / 550 5 % in Water 250 ml @ 183.333 mls/hr IV Q12H [facility] Rx#:[id number] Oral 860 / 1110 0 / 0 [...] signed by MD Frankie Reynolds> 07/15/24 0959 [facility] Work Phone: Evaluation noteNo assessment information available [facility] Work Phone: Evaluation noteNo InformationNort brettapproved Other Evaluation note* Diagnosis Onset Date Resolution Status Acute decompensated heart failure acuteAcute exacerbation of chronic low back painacuteElevated troponinacuteFall acuteHypoxemiaacute [facility] Work Phone: Evaluation note* Diagnosis Onset Date Resolution Status Acute decompensated heart failure acuteAcute exacerbation of chronic low back [id number] respiratory failure with hypoxiaacuteAltered mental statusacuteAnasarcaacute Bladder retentionacuteBradycardiaacuteConstipationacuteDifficulty walkingacute Elevated troponinacuteFallacuteFalls frequentlyacuteFeveracuteGeneralized weaknessacuteHFrEF (heart failure with reduced ejection fraction)acuteHypoxemia acuteImpaired activities of daily livingacuteMyxopapillary ependymomaacute Pleural effusionacuteSleep apneaacuteAtrial fibrillationchronicHypertension chronic [facility] Work Phone: Evaluation note* Diagnosis Chronic atrial fibrillation (Multi) Atrial fibrillation Essential hypertension, benign Heart failure, NYHA class 2 (Multi) Hyperlipidemia, unspecified hyperlipidemia type documented in this encounter [facility] Work Phone: Evaluation note* Author Mayra Ponce [facility] HospitalAuthoredJuly 2023 10:21amThe above note written by ROSALIE Quiroga acting as human recorder, note dictated by Dr. Opal Ga. 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 Primary hypertension Unspecified essential hypertension Mixed hyperlipidemia BMI 30.0-30.9,adult Former smoker Personal history of tobacco use, presenting hazards to health documented in this encounter [facility] Work Phone: Evaluation note* Diagnosis Lumbar stenosis with neurogenic claudication- Primary Spinal stenosis, lumbar region, with neurogenic claudication Longstanding persistent atrial fibrillation (HCC) Cardiomyopathy, unspecified type (HCC) 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, lumbar region, with neurogenic claudication [facility] Diagnosis Pain due to onychomycosis of toenail of left foot- Primary Pain due to onychomycosis of toenail of right foot Localized edema Edema Decreased pedal pulses Other symptoms involving cardiovascular system USP (current) use of anticoagulants Long-term (current) use of anticoagulants [facility] Author Dharmesh Zavala [facility] January 09, 2022 3:30pmNote Date/TimeNov2021 3:30pm[place] [address] Hospitalist H&P Signed Patient: Tavo Wallis Jr MR# : [id number] : 1940 Acct:[id number] Age/Sex: 81 / M Adm Date: 2 Loc: Room: [address] [place] [address] Type: ADM IN Attending Dr: Dharmesh Zavala [...] that he had seen a urologist in [place] recently. Patient used to be on a number of prostate medications but apparently they were stopped because they are not doing what they are supposed to be doing. The patient andhis daughter have a discussion about what urology was doing for the situation without finding a specific answer. Patient also describes that he has been veryconstipated lately and takes an unspecified fdvh-ywb-zwgwiaj generic stool softener. His daughter does point [...] radiofrequency ablations by pain management doctor in [place]. Review of Systems Review of Systems Review [...] % (Auto) 13.5 % (.) 01/09/22 10:36 [place] % (Auto) 14.2 % (.) 01/09/22 10:36 Eos % (Auto) 0.1 % (.) 01/09/22 10:36 Baso % (Auto) 1.0 % (.) 01/09/22 10:36 Neut # (Auto) 4.3 x10E3/uL (1.8-7.7) 01/09/22 10:36 Lymph # (Auto) 0.8 x10E3/uL (1.00-4.8) L 01/09/22 10:36 [place] # (Auto) 0.9 x10E3/uL (0.0-0.8) H 01/09/22 [...] pH 5.5 (5.0-9.0) 01/09/22 12:42 Ur Specific Randolph 1.018 (1.001-1.030) 01/09/22 12:42 Urine Protein Trace [...] lumbar spine. Documented By: Dharmesh Zavala DO [id number] Signed By: <Electronically signed by Dharmesh Zavala DO> 01/09/22 8414 [facility] Work Phone: History and physical note Author Mitchell Reyes [facility] HospitalNote Date/TimeJanuary 2024 3:49pmLeslie Ville [id number] Hospitalist H&P Signed Patient: Tavo Wallis Jr MR# : [id number] : 1940 Acct:[id number] Age/Sex: 83 / M Adm Date: 5 Loc: 3T Room: [address] [place] [address] Type: ADM IN Attending Dr: Mitchell Reyes MD Copies to: MD Opal Peters,DO~ HPI DATE OF EXAMINATION: 03/10/24 HISTORY OF PRESENT ILLNESS: Patient is a 89-year-old male, who was well until approximately 2 weeks ago, when he underwent spinal decompression surgery in [facility] about 2 weeks prior to presentation. He [...] Dyslipidemia Gout Sleep apnea Obesity class I [facility] Medical History Insomnia Hypothyroidism Hypertension Constipation BPH [...] % (Auto) 11.9 % (.) 03/10/24 10:00 [place] % (Auto) 9.2 % (.) 03/10/24 10:00 Eos % (Auto) 5.9 % (.) 03/10/24 10:00 Baso % (Auto) 1.4 % (.) 03/10/24 10:00 Nucleat RBC Rel Count 0.0 /100 WBC (0-0.5) 03/10/24 10:00 Neut # (Auto) 6.1 x10E3/uL (1.8-7.7) 03/10/24 10:00 Lymph # (Auto) 1.0 x10E3/uL (1.00-4.8) 03/10/24 10:00 [place] # (Auto) 0.8 x10E3/uL (0.0-0.8) 03/10/24 10:00 [...] signed by Mitchell Reyes MD> 03/10/24 1549 [facility] Work Phone: History and physical note Author Mario Jordan [facility] HospitalNote Date/TimeMay 2024 6:49pm[place] [address] Hospitalist H&P Signed Patient: Tavo Wallis Jr MR# : [id number] : 1940 Acct:[id number] Age/Sex: 83 / M Adm Date: 5 Loc: Room: [address] [place] [address] Type: ADM IN Attending Dr: Mario Jordan MD Copies to: MD Sandip Fajardo Ramona DO~ HPI DATE OF EXAMINATION: 07/12/24 CHIEF COMPLAINT: Hematuria HISTORY OF PRESENT ILLNESS: This is a 83-year-old male with significant past medical history of A-fib, hypothyroidism, hypertension, BPH on chronic Chou since March 2024 exchangingevery month, hyperlipidemia, gout, cardiomyopathy, history of CHF, was [facility] from [facility] for chief concern for hematuria. Patient [...] negative unless noted below or in HPI [facility] Medical History Insomnia Hypothyroidism Hypertension Constipation BPH [...] % (Auto) 4.2 % (.) 07/12/24 15:00 [place] % (Auto) 0.4 % (.) 07/12/24 15:00 Eos % (Auto) 1.3 % (.) 07/12/24 15:00 Baso % (Auto) 0.3 % (.) 07/12/24 15:00 Nucleat RBC Rel Count 0.2 /100 WBC (0-0.5) 07/12/24 15:00 Neut # (Auto) 6.3 x10E3/uL (1.8-7.7) 07/12/24 15:00 Lymph # (Auto) 0.3 x10E3/uL (1.00-4.8) L 07/12/24 15:00 [place] # (Auto) 0.0 x10E3/uL (0.0-0.8) 07/12/24 15:00 [...] Urine pH (5.0-9.0) 07/12/24 16:19 Ur Specific Randolph 1.020 (1.001-1.030) 07/12/24 16:19 Urine Protein mg/dL [...] gout, cardiomyopathy, history of CHF, was sent [facility] from [facility] for chief concern for hematuria. Patient [...] signed by Mario Jordan MD> 07/12/24 1849 [facility] Work Phone: History of Present illness Narrative* The patient states he has been generally stable since the last visit. Comorbid Illnesses: hypertension. * Symptoms: denies chest pain at rest, denies exertional chest pain, denies dyspnea, denies fatigue, stable exercise intolerance, denies palpitations, denies edema, denies orthopnea, denies dizziness and denies orthostatic dizziness. * Disease Monitoring: [facility] [employer] Work Phone: History of Present illness Narrative* The patient states he has been generally stable since the last visit. Comorbid Illnesses: hypertension. * Symptoms: denies chest pain at rest, denies exertional chest pain, denies dyspnea, denies fatigue, stable exercise intolerance, denies palpitations, denies edema, denies orthopnea, denies dizziness and denies orthostatic dizziness. * Disease Monitoring: [facility] [employer] Work Phone: History of Present illness Narrative* [...] is not doing well with his goals. [facility] 250 DO Work Phone: History of Present [...] is not doing well with his goals. [facility] Work Phone: Hospital Discharge instructions [...] unable to void, chou catheter removed on 01/16[facility] Work Phone: Hospital Discharge instructions Additional Instructions [...] fall precautions Care to be managed by [facility] Work Phone: Hospital Discharge instructions [...] fall precautions Care to be managed by [facility] Work Phone: Progress note Author Dharmesh Zavala [facility] January 10, 2022 8:54pmNote Date/TimeNov2021 8:54pmSchof[place] [address] Hospitalist Progress Note Signed Patient: Tavo Wallis Jr MR# : [id number] : 1940 Acct:[id number] Age/Sex: 81 / M Adm Date: 2 Loc: Room: 7V4180-7 Type: ADM IN Attending Dr: Dharmesh Zavala DO Copies to: ~ Date of Service: 01/10/2022 Subjective Subjective Narrative: When I entered the room the patient tells me that he is getting a pain in the thighs on the top of his legs. He does mention that the people in [place] told me that was due to the [...] mg 01/09/22 14:41 Bisacodyl 10 Mg Supp.Rect WA 01/09/23 14:40 DAILY PRN Constipation Bisacodyl 10 [...] Propionate 1 spray 01/09/22 15:17 Fluticasone Propionate [place] 120 [place]/16 Gm Bottle NARES-BOTH 01/09/23 15:16 QHS PRN [...] 22:00 Eszopiclone PO 01/09/23 21:59 HS [facility] Nystatin 1 applic 01/09/22 22:00 [...] <Electronically signed by Dharmesh Zavala DO> 01/10/222053 [facility] Work Phone: Progress note Author Mani Dickens [facility] January 11, 2022 5:02pmNote Date/TimeNov2021 8:[address] [address] Neurology Progress Note Signed Patient: Tavo Wallis Jr MR# : [id number] : 1940 Acct:[id number] Age/Sex: 81 / M Adm Date: 2 Loc: 3T Room: [address] [place] [address] Type: ADM IN Attending Dr: Raji Ennis [...] knee to all modalities. CEREBELLAR EXAM: * Chqfrw-ul-raat and alternating movements are intact and normal in bilateral upper extremities * Dgcw-el-vufj and alternating movements are intact and normal [...] the plan of care and confirmed the PHARMACY OPERATIONS MANAGER note The patient is an 81-year-old [...] signed by MD Mani Dickens> 01/11/22 170 [facility] Work Phone: Progress note Author W Be Mcintyre [facility] January 11, 2022 2:09pmNote Date/TimeNov2021 2:09pmSchof[place] [address] Cardiology Progress Note Signed Patient: Tavo Wallis Jr MR# : [id number] : 1940 Acct:[id number] Age/Sex: 81 / M Adm Date: 2 Loc: Room: [address] [place] [address] Type: ADM IN Attending Dr: Raji Ennis [...] % (Auto) 73.8 Lymph % (Auto) 13.7 [place] % (Auto) 9.6 Eos % (Auto) 2.2 Baso % (Auto) 0.7 Neut # (Auto) 6.3 Lymph # (Auto) 1.2 [place] # (Auto) 0.8 Eos # (Auto) 0.2 [...] signed by Bhupinder Mcintyre DO> 01/11/22 1409 [facility] Work Phone: Progress note Author Raji Ennis [facility] January 11, 2022 5:04pmNote Date/TimeNov2021 5:04pmSchof[place] [address] Hospitalist Progress Note Signed Patient: Tavo Wallis Jr MR# : [id number] : 1940 Acct:[id number] Age/Sex: 81 / M Adm Date: 2 Loc: Room: [address] [place] [address] Type: ADM IN Attending Dr: Raji Ennis [...] mg 01/09/22 14:41 Bisacodyl 10 Mg Supp.Rect WA 01/09/23 14:40 DAILY PRN Constipation Bisacodyl 10 [...] Propionate 1 spray 01/09/22 15:17 Fluticasone Propionate [place] 120 [place]/16 Gm Bottle NARES-BOTH 01/09/23 15:16 QHS PRN [...] prophylaxis Documented By: Raji Ennis MD 01/11/22 0127 Signed By: <Electronically signed by Raji Ennis MD> 01/11/22 1708 [facility] Work Phone: Progress note Author Mani Dickens [facility] January 12, 2022 4:10pmNote Date/TimeNov2021 8:19[place] [id number] Neurology Progress Note Signed Patient: Tavo Wallis Jr MR# : [id number] : 1940 Acct:[id number] Age/Sex: 81 / M Adm Date: 2 Loc: Room: [address] [place] [address] Type: ADM IN Attending Dr: Raji Ennis [...] extremities * Unable to test finger-nose or palr-gb-rhqx due to drowsiness REFLEX EXAM: * 1 [...] the plan of care and confirmed the PHARMACY OPERATIONS MANAGER note The patient is an 81-year-old [...] signed by MD Mani Dickens> 01/12/22 1610 [facility] Work Phone: Progress note Author Raji Ennis [facility] January 12, 2022 4:38pmNote Date/TimeNov2021 4:38pmSchof[place] [address] Hospitalist Progress Note Signed Patient: Tavo Wallis Jr MR# : [id number] : 1940 Acct:[id number] Age/Sex: 81 / M Adm Date: 2 Loc: Room: [address] [place] [address] Type: ADM IN Attending Dr: Raji Ennis [...] mg 01/09/22 14:41 Bisacodyl 10 Mg Supp.Rect WA 01/09/23 14:40 DAILY PRN Constipation Bisacodyl 10 [...] Propionate 1 spray 01/09/22 15:17 Fluticasone Propionate [place] 120 [place]/16 Gm Bottle NARES-BOTH 01/09/23 15:16 QHS PRN [...] signed by Raji Ennis MD> 01/12/22 1638 [facility] Work Phone: Progress note Author W Be Mcintyre [facility] January 12, 2022 6:11pmNote Date/TimeNov2021 6:11pmSchof[place] [address] Cardiology Progress Note Signed Patient: Tavo Wallis MR# : [id number] : 1940 Acct:[id number] Age/Sex: 81 / M Adm Date: 2 Loc: 3T Room: [address] [place] [address] Type: ADM IN Attending Dr: Raji Ennis [...] % (Auto) 76.3 Lymph % (Auto) 12.2 [place] % (Auto) 9.1 Eos % (Auto) 1.9 Baso % (Auto) 0.5 Neut # (Auto) 7.7 Lymph # (Auto) 1.2 [place] # (Auto) 0.9 H Eos # (Auto) [...] 2.9 Globulin (PEP) 2.4 Albumin/Globulin (PEP) 1.2 Yweyp-5-Jgsryfwhg 0.4 Nylsq-0-Xjqswmrqq 0.7 Beta Globulins 0.6 L Gamma Globulins 0.8 M-Franky Not observed PEP Note IgG 816 IgA 171 IgM 105 Serum Immunofixation 01/12/22 06:42 Corrected WBC Uncorrected WBC Count RBC Hgb Hct MCV MCH MCHC RDW Plt Count MPV Neut % (Auto) Lymph % (Auto) [place] % (Auto) Eos % (Auto) Baso % (Auto) Neut # (Auto) Lymph # (Auto) [place] # (Auto) Eos # (Auto) Baso # (Auto) Nucleated RBC % (auto) PHA Creatinine Clear Sodium Potassium Chloride Carbon Dioxide Anion Gap BUN Creatinine Est GFR ( Amer) Est GFR (Non-Af Amer) Glucose Calcium C-Reactive Prot, Quant 8.4 H Serum Total Protein Albumin (Send Out) Globulin (PEP) Albumin/Globulin (PEP) Qzhzf-6-Owerfrpse Cgrrn-8-Ocxjmrtai Beta Globulins Gamma Globulins M-Franky PEP Note [...] signed by Bhupinder Mcintyre DO> 01/12/22 1811 [facility] Work Phone: Progress note Author Mani Dickens [facility] January 13, 2022 6:10pmNote Date/TimeNov2021 8:13[place], [place] [address] Neurology Progress Note Signed with Addenda Patient: Tavo Wallis Jr MR# : [id number] : 1940 Acct:[id number] Age/Sex: 81 / M Adm Date: 2 Loc: Room: [address] [place] [address] Type: ADM IN Attending Dr: Raji Ennis [...] extremities * Unable to test finger-nose or rues-ro-ijja due to drowsiness REFLEX EXAM: * 03/10 [...] - Repeated falls Status: Acute Documented By: MIE Tristan 808 Signed By: <Electronically signed by MEI Knight> 01/13/22 1520 [facility] Work Phone: Progress note Author Raji Ennis [facility] January 13, 2022 3:44pmNote Date/TimeNov2021 3:27pmSchof[place] [address] Hospitalist Progress Note Signed Patient: Tavo Wallis Jr MR# : [id number] : 1940 Acct:[id number] Age/Sex: 81 / M Adm Date: 2 Loc: Room: [address] [place] [address] Type: ADM IN Attending Dr: Raji Ennis [...] mg 01/09/22 14:41 Bisacodyl 10 Mg Supp.Rect WA 01/09/23 14:40 DAILY PRN Constipation Bisacodyl 10 [...] Propionate 1 spray 01/09/22 15:17 Fluticasone Propionate [place] 120 [place]/16 Gm Bottle NARES-BOTH 01/09/23 15:16 QHS PRN [...] signed by Raji Ennis MD> 01/13/22 1544 [facility] Work Phone: Progress note Author Frankie Reynolds [facility] January 14, 2022 9:39amNote Date/TimeNov2021 9:39amSch[place] [address] Infect. Disease Progress Note Signed Patient: Tavo Wallis Jr MR# : [id number] : 1940 Acct:[id number] Age/Sex: 81 / M Adm Date: 2 Loc: Room: [address] [place] [address] Type: ADM IN Attending Dr: Raji Ennis [...] Appearance Clear Urine pH 5.5 Ur Specific Randolph 1.012 Urine Protein 30 H Urine Glucose [...] Mg Tablet) 300 mg PO DAILY [facility] Stop: 01/10/23 08:59 Last Admin: 01/14/22 08:04 Dose: 300 mg Apixaban (Apixaban 5 Mg Tablet) 5 mg PO BID [facility] Stop: 01/09/23 20:59 Last Admin: 01/14/22 08:04 Dose: 5 mg Atorvastatin Calcium (Atorvastatin 40 Mg Tablet) 40 mg PO QHS [facility] Stop: 01/09/23 21:59 Last Admin: 01/13/22 21:26 Dose: 40 mg Bisacodyl (Bisacodyl 10 Mg Supp.Rect) 10 mg WA DAILY PRN PRN Reason: Constipation Stop: 01/09/23 14:40 Bisacodyl (Bisacodyl 5 Mg Tablet.Dr) 10 mg PO DAILY PRN PRN Reason: Constipation Stop: 01/09/23 14:40 Last Admin: 01/13/22 21:26 Dose: 10 mg Bumetanide (Bumetanide 1 Mg Tablet) 1 mg PO BID@0800,1600 [facility] Stop: 01/13/23 15:59 Docusate Sodium (Docusate 100 Mg Capsule) 100 mg PO BID [facility] Stop: 01/09/23 20:59 Last Admin: 01/14/22 08:03 Dose: 100 mg Fluticasone Propionate (Fluticasone Propionate [place] 120 [place]/16 Gm Bottle) 1 spray NARES-BOTH QHSPRN PRN Reason: Nasal Congestion Stop: 01/09/23 15:16 Magnesium Sulfate (Magnesium Sulf 2gm-*Swfi*) 2 gm in 50 mls @ 25 mls/hr IV DAILY PRN PRN Reason: Magnesium Level < 1.5 Stop: 01/09/23 14:40 Cefepime HCl (Maxipime) 2 gm in 50 mls @ 100 mls/hr IV Q12H [facility] Last Admin: 01/14/22 03:05 Dose: 100 mls/hr Vancomycin HCl 1.25 gm/ (Dextrose) 275 mls @ 183.333 mls/hr IV Q24H ANIBAL Stop: 01/13/23 18:59 Last Infusion: 01/13/22 21:17 Dose: Infused Levothyroxine Sodium (Levothyroxine 150 Mcg Tablet) 150 mcg PO DAILY@0630 [facility] Stop: 01/10/23 06:29 Last Admin: 01/14/22 [...] Mg (Tablet) 3 mg PO HS [facility] Stop: 01/11/23 21:59 Last Admin: 01/13/22 [...] signed by MD Frankie Reynolds> 01/14/22 0939 [facility] Work Phone: Progress note Author Raji [facility]University [facility] January 14, 2022 5:43pmNote Date/TimeNov2021 5:43pmSchof[place] [address] Hospitalist Progress Note Signed Patient: Tavo Wallis Jr MR# : [id number] : 1940 Acct:[id number] Age/Sex: 81 / M Adm Date: 2 Loc: Room: [address] [place] [address] Type: ADM IN Attending Dr: Raji Ennis [...] mg 01/09/22 14:41 Bisacodyl 10 Mg Supp.Rect WA 01/09/23 14:40 DAILY PRN Constipation Bisacodyl 10 [...] Propionate 1 spray 01/09/22 15:17 Fluticasone Propionate [place] 120 [place]/16 Gm Bottle NARES-BOTH 01/09/23 15:16 QHS PRN [...] Syringe IV-PUSH 01/09/23 21:59 10 ml QSHIFT ANIABL Administration Vancomycin HCl 1 each 01/14/22 12:05 [...] <Electronically signed by Raji Ennis MD> 01/14/221742 [facility] Work Phone: Progress note Author Frankie Reynolds [facility] January 15, 2022 12:21pmNote Date/TimeNov2021 12:21pmSchof[place] [address] Infect. Disease Progress Note Signed Patient: Tavo Wallis Jr MR# : [id number] : 1940 Acct:[id number] Age/Sex: 81 / M Adm Date: 2 Loc: Room: [address] [place] [address] Type: ADM IN Attending Dr: Raji Ennis [...] Mg Tablet) 300 mg PO DAILY [facility] Stop: 01/10/23 08:59 Last Admin: 01/15/22 08:46 Dose: 300 mg Apixaban (Apixaban 5 Mg Tablet) 5 mg PO BID ANIBAL Stop: 01/09/23 20:59 Last Admin: 01/15/22 08:46 Dose: 5 mg Atorvastatin Calcium (Atorvastatin 40 Mg Tablet) 40 mg PO QHS ANIBAL Stop: 01/09/23 21:59 Last Admin: 01/14/22 21:32 Dose: 40 mg Bisacodyl (Bisacodyl 10 Mg Supp.Rect) 10 mg WA DAILY PRN PRN Reason: Constipation Stop: 01/09/23 [...] Dose: 100 mg Fluticasone Propionate (Fluticasone Propionate [place] 120 [place]/16 Gm Bottle) 1 spray NARES-BOTH QHSPRN PRN Reason: Nasal Congestion Stop: 01/09/23 15:16 Magnesium Sulfate (Magnesium Sulf 2gm-*Swfi*) 2 gm in 50 mls @ 25 mls/hr IV DAILY PRN PRN Reason: Magnesium Level < 1.5 Stop: 01/09/23 14:40 Levothyroxine Sodium (Levothyroxine 150 Mcg Tablet) 150 mcg PO DAILY@0630 [facility] Stop: 01/10/23 06:29 Last Admin: 01/15/22 06:38 Dose: Not Given Magnesium Hydroxide (Magnesium Hydroxide Susp 30 Ml Udc) 30 ml PO BID PRN PRN Reason: Constipation Stop: 01/09/23 14:40 Magnesium Oxide (Magnesium Oxide 400 Mg Tablet) 400 mg PO DAILY [facility] Stop: 01/10/23 08:59 Last Admin: 01/15/22 08:46 Dose: 400 mg Nitroglycerin (Nitroglycerin 0.4 Mg Tab.Subl) 0.4 mg SUBLINGUAL Q5MIN.X3 PRN PRN Reason: Chest Pain Stop: 01/09/23 14:40 Pom Eszopiclone 3 Mg (Tablet) 3 mg PO HS [facility] Stop: 01/11/23 21:59 Last Admin: 01/14/22 21:32 Dose: 3 mg Nystatin (Nystatin 100,000 Unit/Gram Powder 15 Gm Bottle) 1 applic TOPICAL TID [facility] Stop: 01/09/23 21:59 Last Admin: 01/15/22 [...] <Electronically signed by MD Frankie Reynolds> 01/15/221220 [facility] Work Phone: Progress note Author Raji Ennis [facility] January 15, 2022 4:51pmNote Date/TimeNov2021 4:51pmSchof[place] [address] Hospitalist Progress Note Signed Patient: Tavo Wallis Jr MR# : [id number] : 1940 Acct:[id number] Age/Sex: 81 / M Adm Date: 2 Loc: Room: [address] [place] [address] Type: ADM IN Attending Dr: Raji Ennis [...] mg 01/09/22 14:41 Bisacodyl 10 Mg Supp.Rect WA 01/09/23 14:40 DAILY PRN Constipation Bisacodyl 10 [...] Propionate 1 spray 01/09/22 15:17 Fluticasone Propionate [place] 120 [place]/16 Gm Bottle NARES-BOTH 01/09/23 15:16 QHS PRN [...] tomorrow. Documented By: Raji Ennis MD 01/15/22 1644 Signed By: <Electronically signed by Raji Ennis MD> 01/15/22 1651 [facility] Work Phone: Progress note Author Mitchell Reyes [facility] HospitalNote Date/TimeJanuary 2024 12:33pm [place] [address] Hospitalist Progress Note Signed Patient: Tavo Wallis Jr MR# : [id number] : 1940 Acct:[id number] Age/Sex: 83 / M Adm Date: 5 Loc: 3T Room: [address] [place] [address] Type: ADM IN Attending Dr: Mitchell Reyes [...] lumbar decompression surgery 2 weeks ago in [facility]. No complications otherwise. PT OT [...] Tablet PO 03/11/25 06:29 Not Given DAILY@0630 [facility] Eszopiclone 3 Mg 3 mg 03/10/24 22:00 03/11/24 00:18 Tablet PO 03/10/25 21:59 Not Given QHS [facility] Oxycodone/Acetaminophen 1 tab 03/10/24 13:54 03/10/24 18:29 [...] signed by Mitchell Reyes MD> 03/11/24 1233 [facility] Work Phone: Progress note Author Michele Knight [facility] HospitalNote Date/TimeJanuary 2024 5:12pmSchof[place] [address] Hospitalist Progress Note Signed Patient: Tavo Wallis Jr MR# : [id number] : 1940 Acct:[id number] Age/Sex: 83 / M Adm Date: 5 Loc: Room: [address] [place] [address] Type: ADM IN Attending Dr: Michele Knight [...] Tablet PO 03/11/25 06:29 Not Given DAILY@0630 [facility] Eszopiclone 3 Mg 3 mg 03/10/24 22:00 [...] lumbar decompression surgery 2 weeks ago in [facility]. No complications otherwise. PT OT [...] <Electronically signed by Michele Knight MD> 03/12/241711 [facility] Work Phone: Progress note Author Michele Knight [facility] HospitalNote Date/TimeJanuary 2024 6:00pmSchof[place] [address] Hospitalist Progress Note Signed Patient: Tavo Wallis Jr MR# : [id number] : 1940 Acct:[id number] Age/Sex: 83 / M Adm Date: 5 Loc: 3T Room: [address] [place] [address] Type: ADM IN Attending Dr: Michele Knight [...] lumbar decompression surgery 2 weeks ago in [facility]. No complications otherwise. PT OT [...] signed by Michele Knight MD> 03/13/24 1800 [facility] Work Phone: Progress note Author Michele Knight [facility] HospitalNote Date/TimeJanuary 2024 4:13pmSchof[place] [address] Hospitalist Progress Note Signed Patient: Tavo Wallis Jr MR# : [id number] : 1940 Acct:[id number] Age/Sex: 83 / M Adm Date: 5 Loc: 3T Room: 72 [place] [address] Type: ADM IN Attending Dr: Michele Knight [...] lumbar decompression surgery 2 weeks ago in [facility]. No complications otherwise. PT OT [...] signed by Michele Knight MD> 03/14/24 1613 [facility] Work Phone: Progress note Author Mario Jordan [facility] Hospital[facility] Date/TimeMay 2024 2:[place] [address] Hospitalist Progress Note Signed Patient: Tavo Wallis Jr MR# : [id number] : 1940 Acct:[id number] Age/Sex: 83 / M Adm Date: 5 Loc: Room: [address] [place] [address] Type: ADM IN Attending Dr: Mario Jordan [...] gout, cardiomyopathy, history of CHF, was sent [facility] ED from [facility] for chief concern for hematuria. Patient [...] Daily weights - Heart healthy diet - PT/OT-long term facility - Full code SCD for DVT prophylaxis Documented By: Mario Jordan MD 07/13/24 5707 Signed By: <Electronically signed by Mario Jordan MD> 07/13/24 1438 [facility] Work Phone: Progress note Author Mario Jordan [facility] HospitalNote Date/TimeMay 2024 12:47pmLes[place] [id number] Hospitalist Progress Note Signed Patient: Tavo Wallis Jr MR# : [id number] : 1940 Acct:[id number] Age/Sex: 83 / M Adm Date: 5 Loc: 4 Room: [address] [place] [address] Type: ADM IN Attending Dr: Mario Jordan [...] gout, cardiomyopathy, history of CHF, was sent [facility] ED from [facility] for chief concern for hematuria. Patient [...] Daily weights - Heart healthy diet - PT/OT-long term facility - General Surgery consulted for abscess in the right mid leg lateral aspect - Full code SCD for DVT prophylaxis Documented By: Mario Jordan MD 07/14/24 1238 Signed By: <Electronically signed by Mario Jordan MD> 07/14/24 1246 [facility] Work Phone: progress note Author Bryce Villeda [facility] HospitalNote Date/TimeMay 2024 2:20[place] [address] Progress Note Signed Patient: Tavo Wallis Jr MR# : [id number] : 1940 Acct:[id number] Age/Sex: 84 / M Adm Date: 5 Loc: Room: [address] [place] [address] Type: ADM IN Attending Dr: Mario Jordan [...] signed by Bryce Villeda DO> 07/15/24 1217 [facility] Work Phone: progress note Author Mario Jordan [facility] HospitalNote Date/TimeMay 2024 1:39pm[place]of[place] [address] Hospitalist Progress Note Signed Patient: Tavo Wallis Jr MR# : [id number] : 1940 Acct:[id number] Age/Sex: 84 / M Adm Date: 5 Loc: Room: [address] [place] [address] Type: ADM IN Attending Dr: Mario Jordan [...] gout, cardiomyopathy, history of CHF, was sent [facility] ED from [facility] for chief concern for hematuria. Patient [...] Daily weights - Heart healthy diet - PT/OT-long term facility - Full code SCD for DVT prophylaxis Documented By: Mario Jordan MD 07/15/241334 Signed By: <Electronically signed by Mario Jordan MD> 07/15/24 1339 [facility] Work Phone: Progress note Author Frankie Reynolds [facility] HospitalNote Date/TimeMay 2024 9:28[place] [id number] Infect. Disease Progress Note Signed Patient: Tavo Wallis Jr MR# : [id number] : 1940 Acct:[id number] Age/Sex: 84 / M Adm Date: 5 Loc: Room: [address] [place] [address] Type: ADM IN Attending Dr: Mario Jordan [...] 500 Mg Tablet) 500 mg PO TID [facility] Stop: 07/12/25 21:59 Last Admin: 07/15/24 22:09 [...] Mg Tablet) 300 mg PO DAILY [facility] Stop: 07/13/25 08:59 Last Admin: 07/15/24 08:33 Dose: 300 mg Apixaban (Apixaban 5 Mg Tablet) 5 mg PO BID [facility] Stop: 07/15/25 20:59 Last Admin: 07/15/24 22:09 Dose: 5 mg Atorvastatin Calcium (Atorvastatin 40 Mg Tablet) 40 mg PO DAILY [facility] Stop: 07/13/25 08:59 Last Admin: 07/15/24 08:33 Dose: 40 mg Bumetanide (Bumetanide 1 Mg Tablet) 1 mg PO DAILY@0800 [facility] Stop: 07/15/25 07:59 Last Admin: 07/15/24 08:33 Dose: 1 mg Cefepime HCl (Maxipime) 2 gm in 50 mls @ 12.5 mls/hr IV Q12H [facility] Last Admin: 07/15/24 20:05 Dose: 12.5 mls/hr Vancomycin HCl (Vancomycin) 1 gm in 250 mls @ 250 mls/hr IV Q24H [facility] Levothyroxine Sodium (Levothyroxine 150 Mcg Tablet) 150 mcg PO DAILY.0630 [facility] Stop: 07/13/25 06:29 Last Admin: 07/16/24 05:21 Dose: 150 mcg Magnesium Oxide (Magnesium Oxide 400 Mg Tablet) 400 mg PO DAILY [facility] Stop: 07/13/25 08:59 Last Admin: 07/15/24 08:33 Dose: 400 mg Eszopiclone 3 Mg (Tablet) 3 mg PO QHS [facility] Stop: 07/12/25 21:59 Last Admin: 07/15/24 22:09 [...] is just weak and is upper thighs. [facility] that he has been to on and off therapy only happens once a day and it sounds like he sits in a chair or bed for the rest of thetime. This is according to his family member. Documented By: Frankie Reynolds MD 07/16/24918 Signed By: <Electronically signed by MD Frankie Reynolds> 07/16/24927 [facility] Work Phone: Progress note Author Mario Jordan [facility] HospitalNote Date/TimeMay 2024 2:59pm[place] [address] Hospitalist Progress Note Signed Patient: Tavo Wallis Jr MR# : [id number] : 1940 Acct:[id number] Age/Sex: 84 / M Adm Date: 5 Loc: Room: [address] [place] [address] Type: ADM IN Attending Dr: Mario Jordan [...] gout, cardiomyopathy, history of CHF, was sent [facility] ED from [facility] for chief concern for hematuria. Patient [...] Daily weights - Heart healthy diet - PT/OT-long term facility - Full code SCD for DVT prophylaxis Documented By: Mario Jordan MD 07/16/241454 Signed By: <Electronically signed by Mario Jordan MD> 07/16/24 1459 [facility] Work Phone: Progress note Author Frankie Reynolds [facility] HospitalNote Date/TimeMay 2024 8:51[place] [address] Infect. Disease Progress Note Signed Patient: Tavo Wallis Jr MR# : [id number] : 1940 Acct:[id number] Age/Sex: 84 / M Adm Date: 5 Loc: 4 Room: 1I6372-1 Type: ADM IN Attending Dr: Mario Jordan [...] 500 Mg Tablet) 500 mg PO TID [facility] Stop: 07/12/25 21:59 Last Admin: 07/17/24 08:15 [...] Mg Tablet) 300 mg PO DAILY [facility] Stop: 07/13/25 08:59 Last Admin: 07/17/24 08:15 Dose: 300 mg Apixaban (Apixaban 5 Mg Tablet) 5 mg PO BID [facility] Stop: 07/15/25 20:59 Last Admin: 07/17/24 08:15 Dose: 5 mg Atorvastatin Calcium (Atorvastatin 40 Mg Tablet) 40 mg PO DAILY [facility] Stop: 07/13/25 08:59 Last Admin: 07/17/24 08:15 Dose: 40 mg Bumetanide (Bumetanide 1 Mg Tablet) 1 mg PO DAILY@0800 [facility] Stop: 07/15/25 07:59 Last Admin: 07/17/24 08:15 Dose: 1 mg Cefepime HCl (Maxipime) 2 gm in 50 mls @ 12.5 mls/hr IV Q12H [facility] Last Admin: 07/17/24 08:15 Dose: 12.5 mls/hr Vancomycin HCl (Vancomycin) 1 gm in 250 mls @ 250 mls/hr IV Q24H [facility] Last Infusion: 07/16/24 12:00 Dose: Infused Levothyroxine Sodium (Levothyroxine 150 Mcg Tablet) 150 mcg PO DAILY.0630 [facility] Stop: 07/13/25 06:29 Last Admin: 07/17/24 08:15 Dose: 150 mcg Magnesium Oxide (Magnesium Oxide 400 Mg Tablet) 400 mg PO DAILY [facility] Stop: 07/13/25 08:59 Last Admin: 07/17/24 08:16 Dose: 400 mg Eszopiclone 3 Mg (Tablet) 3 mg PO QHS [facility] Stop: 07/12/25 21:59 Last Admin: 07/16/24 22:10 [...] <Electronically signed by MD Frankie Reynolds> 07/17/2451 [facility] Work Phone: Reason for referral (narrative)* Consultation (Routine) - AuthorizedSpecialtyDiagnoses / ProceduresReferred By Contact Referred To ContactCardiology Diagnoses Heart failure, NYHA class 2 (Multi) Procedures Follow Up In Cardiology Tavo Mcintyre DO [address] [facility], [place] [place], [place] [id number] Tavo Mcintyre DO [address] [facility], [facility] [address] [place] [address] Referral IDStatusReasonStart DateExpiration DateVisits RequestedVisits [id number]/8/20245/ [facility] Work Phone: Recubh for referral (narrative)No reason for referral information availableC[facility] Clinic E[facility] Work Phone: Chief Complaint * [...] 2021. * January 2022 hospitalized at [facility] due to fall, noted bradycardia with3.0-second [...] rare postural orthostatic h ypotension in the top stop attacher. He denies any palpitations or fast heartbeats. [...] for Visit Chief Complaint MEDICARE/[facility] Chief Complaint E03.9 I10 I48.91 fallReason for VisitAcute decompensated heart failure Acute exacerbation of chronic low back pain Elevated troponin Fall Hypoxemia Chief Complaint E03.9 I10 I48.91 fallReason for VisitAcute decompensated heart failure Acute exacerbation of chronic low back pain [id number] Acute respiratory failure with hypoxia Altered mental [...] Acute exacerbation of chronic low back pain [id number] Acute respiratory failure with hypoxia Altered mental [...] Acute exacerbation of chronic low back pain [id number] Acute respiratory failure with hypoxia Altered mental [...] May 28, 2024 8:2 5am I48.91,M48.062,Z48.811,G93.41,M54.50 Apr vt 2024 9:25am Chief Complaint Admit Date Lethargic March 10, 2024 11 :26am Z47.89 April 03, 2024 3 :19pm 148.91 N18.3 April 23, 2024 10:53am i11.0 i50.33 ga3.41 i48.91 r33.9 z48.811 April 30, 2024 8:20am R33.9 May 07, 2024 8:58 am I48.91, N18.3, I50.33, G93.41, M48.062 M arch 2024 10:45am I48.91,I11.0,I50.33,M48.062,Z48.811 [facility] h 2024 7:13am Z48.811 111.0 [...] G93.41, M48.062 M arch 2024 10:45am I48.91,I11.0,I50.33,M48.062,Z48.811 [facility] h 2024 7:13am Z48.811 111.0 [...] 8:58 am I48.91, N18.3, I50.33, G93.41, M48.062 [facility] 2024 10:45am I48.91,I11.0,I50.33,M48.062,Z48.811 [facility] 2024 7:13am [...] am I48.91, N18.3, I50.33, G93.41, M48.[address] [facility] 2024 10:45am I48.91,I11.0,I50.33,M48.062,Z48.811 [facility] 2024 7:13am Z48.811 111.0 May 28, [...] 11 :01am hospital f/u - subdural hematoma [facility] 2024 9:43am Chief Complaint Admit Date Urine drop-off September 14, 2024 10:5 0am lumbar pain September 18, 2024 3:12 pm recent uti, afib, chronic chou September 12:45pm Ref: Dr. Daily Perez UTI October 04, 2024 1:51 pm Fall October 05, 2024 9:1 3pm fallOctober 07, 2024 7:0 5am I62.9 October 31, 2024 11 :01am hospital f/u - subdural hematoma [facility] 2024 9:43am M81.0 November 29, 2024 [...] 11 :01am hospital f/u - subdural hematoma [facility] 2024 9:43am M81.0 November 29, 2024 [...] 11 :01am hospital f/u - subdural hematoma [facility] 2024 9:43am M81.0 November 29, 2024 [...] No April 05, 2023 4:20pm Date ActivatedDate KjnoqbnidrdKboqbqnk96/17/2024 7:35 AM Advance Directive Response Recorded Date/ Time Advance Directives No April 05, 2023 3:20pm Summary Purpose Additional Source Comments REASON FOR VISIT (unrecogniz ed section and content) ReasonCommentsAnnual Xvua3tdZieebvMrtgrtcyMuw-ij ClearanceLumbar fusionSpecialty Diagnoses / ProceduresReferred By ContactReferred To Contact Diagnoses Preop cardiovascular exam Procedures ECG 12 Lead Tavo Mcitnyre DO [address] [facility] [address], [address] [place] [address] Phone: tel: fax: Referral IDStatusReasonStart DateExpiration DateVisits RequestedVisits [id number]/12/202412/12/633370VroxltkouKcctfpieh / Procedures Referred By ContactReferred To Contact Diagnoses Degeneration of intervertebral disc of lumbar region, unspecified whether pain present Degeneration of intervertebral disc of lumbar region, unspecified whether pain present [M51.369] Procedures WA ARTHRODESIS POSTERIOR/PSTLAT TQ 1NTRSPC LUMBAR WA ARTHRODESIS PST/PSTLAT TQ 1NTRSPC EA ADDL NTRSPC WA POTTS FACETECTOMY & FORAMOTOMY 1 VRT SGM LUMBAR WA POTTS FACETECTOMY&FORAMOT 1 VRT SGM EA ADDL SGM WA AUTOGRAFT SPINE SURGERY LOCAL FROM SAME INCISION L2-5 Decompression and Non Instrumented Fusion L2-5 Decompression and Non Instrumented Fusion L2-5 Decompression and Non Instrumented Fusion L2-5 Decompression and Non Instrumented Fusion L2-5 Decompression and Non Instrumented Fusion Randi Burris MD [address] [place] [address] [place] [address] [facility] [address] [place] [address] Referral IDStatusReasonStart DateExpiration DateVisits RequestedVisits [id number] PatientDebridement of Nail Care Teams (unrecognized sec [...] Opal Ga DO Primary Care Provider Active Natcaha Rodarte PHARMACY OPERATIONS MANAGER-CAttending ProviderActive Team Status: Active Member Role [...] MemberRelationshipSpecialty Start DateEnd Date Opal Ga DO [facility]01/05/21 Team Status: Inactive Member Role Status Dates [...] Dates Bhupinder Mcintyre DO Specialist Active PAULA [facility]. [facility] Care ProviderActive Team Status: Inactive Member Role Status Dates Opal Ga DO Primary Care Provide r, Attending Provider Active Start: September 21, 2023 End: September 21, 2023 Team Status: Inactive Member Role Status Wil Ga DO Primary Care Provide r, Attending Provider Active Start: December 27, 2023 End: December 27, 2023Team MemberRelationshipSpecialtyStart DateEnd Date Opal Ga DO [facility]01/05/21Team MemberRelationshipSpecialtyStart DateEnd Date Opal Ga DO [facility] Team Status: Inactive Member Role Status [...] 12, 2024 End: July 17sandhya Larry , PHARMACY OPERATIONS MANAGER-COther ProviderActiveStart: July 12, 2024 End: July 17guanakito Gomez GREY ROLL WORKER-BCOther ProviderActiveStart: July 12, 2024 End: July 17, [...] Tom MDOther ProviderActiveStart: 2024 Nkechi Larry , PHARMACY OPERATIONS MANAGER-COther ProviderActiveStart: 2024 Ella Gomez GREY ROLL WORKER-BCOther ProviderActiveStart: 2024 Bryce Villeda DOOther ProviderActiveStart: 2024 Jennifer Vargasending Provider, Other ProviderActiveStart: 2024 Team Status: Active Member Role Status Dates DO Jacqueline Baron Active PHYSICIAN NO FAMILYPrimary Care ProviderActive Team Status: Active Member Role Status Dates Melvi Qureshi AIR TANK ASSEMBLER Emergency Provider Active S tart: 2024 Sandip [...] Start: September 18, 2024 End: September 18Clarisa Hassanmonroe county hospitalshelia Care ProviderActiveStart: September 18, 2024 End: September [...] Sta rt: December 27, 2024 Cristy Prince PHARMACY OPERATIONS MANAGER-CAttending ProviderActiveStart: December 27, 2024 Team Status: [...] section and content) DATE CREATED AUTHOR 07/09/2022 [facility] DATE CREATED AUTHOR AUTHOR'S ORGANIZ ATION 07/09/2022 [facility] DATE CREATED AUTHOR AUTHOR'S ORGANIZ ATION 07/16/2022 [facility] DATE CREATED AUTHOR AUTHOR'S ORGANIZ ATION 03/16/2024 [facility] DATE CREATED AUTHOR AUTHOR'S ORGANIZ ATION 08/04/2024 [facility] DATE CREATED AUTHOR AUTHOR'S ORGANIZ ATION 08/16/2024 [facility] DATE CREATED AUTHOR AUTHOR'S ORGANIZ ATION 10/20/2024 [facility] DATE CREATED AUTHOR AUTHOR'S ORGANIZ ATION 01/03/2025 [facility] Ordered Prescriptions (unrec ognized section [...] Chau RN) * 0008 (Stopped - Provider: Critsy Chau RN) * 0745 (New Bag - [...] Molina, MARK) * 1512 (Given - Provider: Dnotrell Molina RN) * 0208 (Given - Provider: [...] for injection by adding 1 mL of [employer]-supplied sterile diluent or sterile water for injection [...] or prosecute any alcohol or drug abuse patient.[facility] FOR RECORDS PERTAINING TO PATIENTS [...] BE BASED ON THE PRIMARY CLINICAL RECORDS. [facility] [employer] [facility]. provides no warranty or guarantee of the accuracy or completeness of information in this document.
--- NOTE | 2025-01-26 12:34 | ED.AMS1 ---
HPI - Altered Mental Status General Chief Complaint: Altered Mental Status Stated Complaint: ALTERED MENTAL Time Seen by Provider: 01/26/25 12:04 Source: other Source comment: EMS and custodial report Mode of arrival: ambulance Limitations: altered mental status History of Present Illness HPI narrative: The patient is 84-year-old male presented to the ER from intermediate facility the [facility], with a concern of the family as well as the staff of altered mental status, the usually seeing him every other day and she saw him the day before yesterday and he was able to hold a whole conversation but today he is only repeating the sentence it is okay The patient did not eat all day no nausea no vomiting no abdominal pain or any chest pain, he does have an indwelling Chou catheter that was replaced today The patient did have a urinalysis and UTI diagnosed yesterday when he was started Macrobid The patient himself denies any complaint and he just repeating it is okay without yes or no specification Related Data Home Medications ?Medication ?Instructions ?Recorded ?Confirmed allopurinol 300 mg tablet 300 mg PO DAILY 01/06/23 01/26/25 atorvastatin 40 mg tablet 40 mg PO DAILY 01/06/23 01/26/25 levothyroxine 150 mcg tablet 150 mcg PO .qd 04/13/24 01/26/25 magnesium oxide 400 mg (241.3 mg 400 mg PO .qd 04/13/24 01/26/25 magnesium) tablet budesonide 0.5 mg/2 mL suspension 0.5 mg inhalation Q12H 12/30/24 01/26/25 for nebulization nystatin 100,000 unit/gram topical 1 applic topical BID 12/30/24 01/26/25 powder (Klayesta) pramipexole 0.25 mg tablet 0.25 mg PO QDAY PRN tremors 12/30/24 01/26/25 baclofen 10 mg tablet 10 mg PO Q8H 01/26/25 01/26/25 bumetanide 1 mg tablet mg 01/26/25 nitrofurantoin 100 mg PO BID 01/26/25 01/26/25 monohydrate/macrocrystals 100 mg capsule (Macrobid) sodium chloride hyponatremia 01/26/25 Previous Rx's ?Medication ?Instructions ?Recorded acetaminophen 325 mg tablet 650 mg (2 x 325 mg) PO Q6H PRN 01/04/25 (Tylenol) Pain or fever #0 tabs diltiazem HCl 120 mg 120 mg PO QD #0 caps 01/04/25 capsule,extended release 24 hr heparin (porcine) 5,000 unit/mL 5,000 unit subcut Q12H #0 mL 01/04/25 injection solution ipratropium 0.5 mg-albuterol 3 mg 3 ml inhalation Q8H PRN Wheezing 01/04/25 (2.5 mg base)/3 mL nebulization #0 mL soln pantoprazole 40 mg tablet,delayed 40 mg PO DAILY #30 tabs 01/04/25 release piperacillin-tazobactam 3.375 3.375 g (56.25 mL) IV Q8H 5 days 01/04/25 gram/50 mL dextrose(iso-os) IV piggyback (Zosyn) polyethylene glycol 3350 17 gram 17 g PO QD PRN Constipation #0 ea 01/04/25 oral powder packet potassium chloride 20 mEq 10 meq (1/2 x 20 mEq) PO DAILY #0 01/04/25 tablet,extended release(part/cryst) tabs sennosides 8.6 mg-docusate sodium 2 tab PO QD #30 tabs 01/04/25 50 mg tablet Allergies Allergy/AdvReac Type Severity Reaction Status Date / Time fentanyl (From Duragesic) Allergy Unknown Agitated Verified 01/26/25 12:04 indomethacin (From Indocin) Allergy Unknown Agitated Verified 01/26/25 12:04 Penicillins Allergy Unknown Rash Verified 01/26/25 12:04 zolpidem (From Ambien) Allergy Agitated Verified 01/26/25 12:04 Review of Systems ROS Status of ROS 10 or more systems reviewed and unremarkable except as noted in history and below [facility] Medical History (Updated 01/26/25 @ 14:56 by Cherelle Funes MD) Fluid collection at surgical site ?T88.8XXA - Other specified complications of surgical and medical care, 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, initial encounter (ICD-10) Acute on chronic renal failure ?N17.9 - Acute kidney failure, unspecified (ICD-10) ?N18.9 - Chronic kidney disease, unspecified (ICD-10) Acute on chronic diastolic CHF (congestive heart failure) ?I50.33 - Acute on chronic diastolic (congestive) heart failure (ICD-10) 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 - Diverticulum of esophagus, acquired (ICD-10) Encounter for screening colonoscopy ?Z12.11 - Encounter for screening for malignant neoplasm of colon (ICD-10) Sleep apnea ?G47.30 - Sleep apnea, unspecified (ICD-10) Gastric ulcer ?K25.9 - Gastric ulcer, unspecified as acute or chronic, without hemorrhage or perforation (ICD-10) DJD (degenerative joint disease) ?M19.90 - Unspecified osteoarthritis, unspecified site (ICD-10) Dehydration ?E86.0 - Dehydration (ICD-10) Altered mental state ?R41.82 - Altered mental status, unspecified (ICD-10) Falls ?R29.6 - Repeated falls (ICD-10) Bladder retention ?R33.9 - Retention of urine, unspecified (ICD-10) Constipation ?K59.00 - Constipation, unspecified (ICD-10) Pleural effusion ?J90 - Pleural effusion, 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 (ICD-10) Bakers cyst ?M71.20 - Synovial cyst of popliteal space [[place]], unspecified knee (ICD-10) Cardiomyopathy ?I42.9 - Cardiomyopathy, unspecified (ICD-10) Cellulitis ?L03.90 - Cellulitis, unspecified (ICD-10) Gout ?M10.9 - Gout, unspecified (ICD-10) Meningioma, spinal ?D32.1 - Benign neoplasm of spinal meninges (ICD-10) Tinnitus ?H93.19 - Tinnitus, unspecified ear (ICD-10) BPH (benign prostatic hyperplasia) ?N40.0 - Benign prostatic hyperplasia without lower urinary tract symptoms (ICD-10) Insomnia ?G47.00 - Insomnia, unspecified (ICD-10) PVD (peripheral vascular disease) ?I73.9 - Peripheral vascular disease, unspecified (ICD-10) CHF (congestive heart failure) ?I50.9 - Heart failure, unspecified (ICD-10) Cataracts, bilateral ?H26.9 - Unspecified cataract (ICD-10) Low back pain ?M54.50 - Low back pain, unspecified (ICD-10) Hypercholesterolemia ?E78.00 - Pure hypercholesterolemia, unspecified (ICD-10) Surgical History (Updated 04/13/24 @ 10:32 by Yoli High RN) H/O lithotripsy ?Z98.890 - Other specified postprocedural states (ICD-10) H/O laminectomy ?Z98.890 - Other specified postprocedural states (ICD-10) H/O sinus surgery ?Z98.890 - Other specified postprocedural states (ICD-10) History of back surgery ?Z98.890 - Other specified postprocedural states (ICD-10) History of esophagogastroduodenoscopy (EGD) ?Z98.890 - Other specified postprocedural states (ICD-10) History of total knee arthroplasty ?Z96.659 - Presence of unspecified artificial knee joint (ICD-10) History of hip replacement ?Z96.649 - Presence of unspecified artificial hip joint (ICD-10) Previous back surgery ?Z98.890 - Other specified postprocedural states (ICD-10) History of shoulder surgery ?Z98.890 - Other specified postprocedural states (ICD-10) Family History (Updated 04/13/24 @ 10:34 by Yoli High RN) Other Alzheimers disease Cirrhosis Family history of cancer Family history of diabetes mellitus Family history of hypertension Family history of myocardial infarction Heart disease Social History (Updated 04/13/24 @ 10:36 by Yoli High RN) Within the past year, how often did you have a drink containing alcohol: 4 or more times a week Smoking status: Former smoker Second hand tobacco smoke exposure: Yes Non-prescribed substance use: denies use Previous occupational history: Retired- [employer] Highest level of school completed/degree received: high school graduate Little interest or pleasure in doing things: not at all Feeling down, depressed, or hopeless: not at all Exam Narrative Exam Narrative: Nurses notes and vital signs reviewed and patient is not hypoxic. General: Well-appearing and in no apparent distress. Skin: Warm, dry, no pallor noted. No rash. Head: Normocephalic, atraumatic. Neck: Supple, non-tender.e Cardiovascular: irregular Rate and Rhythm without murmur, gallop or rub. Respiratory: No accessory muscle use or respiratory distress. Lungs decreased air entry in the bases Back: No midline thoracic or lumbar vertebral tenderness. No CVA tenderness Musculoskeletal: The patient noted to have some stiffness in the lower extremities muscles could be just from immobilization, no vascular injury no significant edema GI: Abdomen is soft, non-distended. Normal bowel sounds. No masses appreciated. No tenderness to palpation. No rebound, guarding, or rigidity noted. Chou catheter in place, Neurological: Alert and keep repeating the sentence it is okay Psychiatric: Cooperative Constitutional Vital Signs, click to edit/add: Last Vital Signs Temp 97.8 F 01/26/25 12:00 Pulse 70 01/26/25 14:50 Resp 16 01/26/25 14:50 BP 154/75 H 01/26/25 14:30 Pulse Ox 98 01/26/25 14:50 O2 Del Method Room Air 01/26/25 12:00 Course Vital Signs Vital signs: Vital Signs Pulse Oximetry 99 01/26/25 11:58 Temperature 97.8 F 01/26/25 12:00 Pulse Rate 70 01/26/25 14:50 Respiratory Rate 16 01/26/25 14:50 Blood Pressure 154/75 H 01/26/25 14:30 Pulse Oximetry 98 01/26/25 14:50 Oxygen Delivery Method Room Air 01/26/25 12:00 MDM - Altered Mental Status MDM Narrative Medical decision making narrative: EKG was showing A-fib rhythm rate of [address] elevation The patient CBC showed no acute pathology and the chemistry was within normal although the hemoglobin shows some concentration which could be signs of dehydration Urinalysis positive for UTI Troponin is elevated but the patient have a baseline of elevated troponin he will have another set for repetition The patient chest x-ray showed no acute pathology but the CAT scan of the abdomen pelvis obtained after the patient being diagnosed with UTI showed that the patient have pleural effusion on the right side and mention to the fact that the patient have some colitis on his CAT scan I did present to the bedside with rectal exam showing that the patient does not have any fecal impaction he actually had the stool coming from his rectum actively and in the dependent at the time of examination There was no decubital ulcer or any point of tenderness on exam The patient case was discussed with after obtaining the blood culture the patient was started on ceftriaxone and will be admitted for observation for UTI and altered status due to that The patient CT head showed no acute pathology as well Lab Data Labs: Lab Results 01/26/25 01/26/25 Range/Units 12:24 12:51 WBC 5.4 (4.0-11.0) 10^3/uL RBC 3.50 L (4.70-6.10) 10^6/uL Hgb 10.4 L (14.0-18.0) g/dL Hct 32.2 L (42.0-54.0) % MCV 92.0 (80.0-94.0) fL MCH 29.7 (25.9-34.0) pg MCHC 32.3 (29.9-35.2) g/dL RDW 18.0 H (11.0-15.0) % Plt Count 164 (150-450) 10^3/uL MPV 9.7 (9.5-13.5) fL Neut % (Auto) 58.2 (43.0-75.0) % Lymph % (Auto) 22.9 (20.5-60.0) % Norman % (Auto) 9.1 (1.7-12.0) % Eos % (Auto) 8.5 H (0.9-7.0) % Baso % (Auto) 1.1 (0.2-2.0) % Neut # (Auto) 3.2 (1.4-6.5) 10^3/uL Lymph # (Auto) 1.2 (1.2-3.8) 10^3/uL Norman # (Auto) 0.5 (0.3-0.8) 10^3/uL Eos # (Auto) 0.5 (0.0-0.7) 10^3/uL Baso # (Auto) 0.1 (0.0-0.1) 10^3/uL Abs Immat Gran (auto) 0.01 (0.00-0.03) 10^3/uL Imm/Tot Granulo (auto) 0.2 (0.0-0.5) % Sodium 139 (136-145) mmol/L Potassium 4.1 (3.5-5.1) mmol/L Chloride 103 (98-107) mmol/L Carbon Dioxide 31.8 (21.0-32.0) mmol/L Anion Gap 8.3 BUN 17.0 (7.0-18.0) mg/dL Creatinine 1.02 (0.70-1.30) mg/dL Est GFR ( Amer) >60 (>=60 mL/min/1.73m^2) Est GFR (Non-Af Amer) >60 (>=60 mL/min/1.73m^2) BUN/Creatinine Ratio 16.7 Glucose 84 (74-106) mg/dL Lactate 1.1 (0.4-2.0) mmol/L Calcium 9.7 (8.5-10.1) mg/dL Magnesium 2.0 (1.8-2.4) mg/dL Total Bilirubin 0.4 (0.2-1.0) mg/dL AST 17 (15-37) U/L ALT 16 (16-63) U/L Alkaline Phosphatase 119 H (46-116) U/L Total Creatine Kinase 29 L (39-308) U/L Troponin I High Sens 105.8 H* (4.0-76.1) pg/mL Total Protein 7.2 (6.4-8.2) g/dL Albumin 3.1 L (3.4-5.0) g/dL Globulin 4.1 g/dL Albumin/Globulin Ratio 0.8 Urine Color Lt. yellow (YELLOW) Urine Clarity Cloudy A (CLEAR) Urine pH 8.0 (5.0-9.0) Ur Specific [place] 1.010 (1.005-1.025) Urine Protein 100 A (NEG/TRACE) mg/dL Urine Glucose (UA) Negative (NEGATIVE) mg/dL Urine Ketones Negative (NEGATIVE) mg/dL Urine Occult Blood Large A (NEGATIVE) Urine Nitrite Negative (NEGATIVE) Urine Bilirubin Negative (NEGATIVE) Urine Urobilinogen 0.2 (0.2-1.0) EU/dL Ur Leukocyte Esterase Large A (NEGATIVE) Urine RBC 20-50 A (0-2) #/HPF Urine WBC 20-50 A (NONE SEEN) #/HPF Ur Squamous Epith Cells Rare (NONE/RARE) #/LPF Urine Crystals None seen (None Seen) #/HPF Urine Bacteria Moderate A (NONE SEEN) #/HPF Urine Casts None seen (NONE SEEN) #/LPF Urine Mucus None seen (NONE SEEN) Ur Culture Indicated? Yes-[facility] [place] Discharge Chief Complaint: Altered Mental Status Clinical Impression: AMS (altered mental status), Acute UTI, Colitis, Pleural effusion Patient Disposition: Admitted as Observation
[2025-01-26 12:52] LABS: Glucose Urine UA NEGATIVE (NEGATIVE)
[2025-01-26 13:01] LABS: Hematocrit 32.2 % (42.0-54.0); Hemoglobin 10.4 g/dL (14.0-18.0); Immature Granulocytes Abs Auto 0.01 10^3/uL (0.00-0.03); Immature Granulocytes Pct Auto 0.2 % (0.0-0.5); Lymphocytes Absolute Auto 1.2 10^3/uL (1.2-3.8); Mean Corpuscular HGB Conc 32.3 g/dL (29.9-35.2); Mean Corpuscular Hemoglobin 29.7 pg (25.9-34.0); Mean Corpuscular Volume 92.0 fL (80.0-94.0); Platelet Count 164 10^3/uL (150-450); Red Blood Count 3.50 10^6/uL (4.70-6.10); White Blood Count 5.4 10^3/uL (4.0-11.0)
[2025-01-26 13:04] LABS: Cast Seen? NONE SEEN #/LPF (NONE SEEN); Crystals Seen? None Seen #/HPF (None Seen); Urine Culture Indicated YES-FRMC
[2025-01-26] MEDS: ACETAMINOPHEN 325 MG TABLET 650 MG PO (13:07)
[2025-01-26 13:23] LABS: Alanine Aminotransferase 16 U/L (16-63); Albumin Globulin Ratio 0.8; Albumin Level 3.1 g/dL (3.4-5.0); Alkaline Phosphatase 119 U/L (46-116); Anion Gap 8.3; Aspartate Amino Transferase 17 U/L (15-37); Blood Urea Nitrogen 17.0 mg/dL (7.0-18.0); Calcium 9.7 mg/dL (8.5-10.1); Carbon Dioxide 31.8 mmol/L (21.0-32.0); Chloride 103 mmol/L (98-107); Estimated GFR (African America >60 (>=60 mL/min/1.73m^2); Estimated GFR (Non-African Ame >60 (>=60 mL/min/1.73m^2); Globulin 4.1 g/dL; Glucose 84 mg/dL (74-106); Potassium 4.1 mmol/L (3.5-5.1); Sodium 139 mmol/L (136-145); Total Protein 7.2 g/dL (6.4-8.2)
[2025-01-26 13:26] LABS: Creatine Kinase 29 U/L (39-308); Lactate/Lactic Acid 1.1 mmol/L (0.4-2.0); Magnesium 2.0 mg/dL (1.8-2.4)
--- NOTE | 2025-01-26 13:40 | CT_ITS ---
The [address] [address] Patient Name: TAVO WALLIS JR MRN: [id number] date: 1940 Sex: M Assigned Patient Location: ED.MAIN Current Patient Location: ED.MAIN Accession/Order Number: [id number] Exam Date: 01/26/2025 14:03 Report Date: 01/26/2025 14:32 At the request of: TYE CRYSTAL MD Procedure: CT abdomen pelvis wo con CT ABDOMEN AND PELVIS WITHOUT INTRAVENOUS CONTRAST: CLINICAL HISTORY: uti , kidney stones ? COMPARISON: CT abdomen and pelvis 12/30/2024 TECHNIQUE: Spiral images were obtained through the abdomen and pelvis without intravenous contrast. This CT exam was performed using one or more following dose reduction techniques: Automated exposure control, adjustment of the mA and/or kV according to patient size, or use of iterative reconstruction technique. FINDINGS: Lung Bases: [Partially visualized moderate right-sided pleural effusion. Bibasilar atelectasis/scarring.] Left-sided pleural calcifications. Organs:Suboptimal evaluation due to lack of IV contrast. Questionable hyperdense material seen within the gallbladder suspicious for stones. No CBD dilatation.[Spleen pancreas and adrenal glands all appear unremarkable. Kidneys demonstrate no stone or hydronephrosis. Abdominal aorta appears normal in caliber. GI: Small hiatal hernia. Distal stomach is grossly unremarkable. Small bowel appears nondilated. Large amount of stool seen within the rectum distending the rectum to approximately 8.3 cm with wall thickening and inflammatory changes suspicious for colitis.[ Pelvis:[Suboptimal evaluation due to streak hardware artifact from the patient's left hip prosthesis. Chou catheter is in place.] Peritoneum/Retroperitoneum:No free air or free fluid or lymphadenopathy.[ Abd wall/Bones:Abdominal wall demonstrates anasarca changes. Osseous structures demonstrate degenerative change. Chronic wedge-shaped compression deformity L1 vertebral body.[ CT/CT abdomen pelvis wo con IMPRESSION: Evidence of stercoral colitis. Questionable gallbladder sludge/stones. This can BE confirmed by ultrasound. Partially visualized is moderate right-sided pleural effusions. Impression dictated by: Ortega Groves Jr., D.O. 01/26/2025 2:32 PM Dictation Location: MessageParty Electronically authenticated by: [id number] Y Date: 01/26/2025 14:32
--- OUTSIDE RECORDS SUMMARY | 2025-01-26 16:46 | XMS_ITS | CCD ---
Author Organization [facility] ion Partnership [facility] Care Team Providers Care Electronics Instructor Name Role Phone Opal Ga Unavailable Unavailable Unavailable Opal Ga Unavailable DO Opal Ga Primary Care Provider AKUA Rodarte Attending Provider [phone] DO Opal Ga Attending Provider DO Opal Ga Primary Care Provider [phone] DO Opal Ga Attending Provider [phone] MD Frankie Paiz Emergency Provider DO Dharmesh Zavala Admit Provider [phone] DO Dharmesh Zavala Attending Provider Shy Mcdonough Other Provider Unavailable DO Meme De La Torre Other Provider MD Mani Dickens Other Provider [phone] DO Matheus Rizvi Other Provider [phone] Antonia ANP- Hoa Other Provider DO Vikas Mane Other Provider RIKY Degroot Other Provider MD Raji Ennis Attending Provider MD Frankie Reynolds Other Provider RIKY Mix Attending Provider DO Opal Ga Attending Provider [phone] Kuns, DO Opal Primary Care Provider Kuns, DO Opal Myers Attending Provider [phone] Kuns, Dr. Opal Parker Primary Care [...] BRAMBILA ., DR TROY Whitmore Attending Unavailable RODRATE ., NATACHA Consulting Unavailable KUNS, DR WHITTINGTON [...] Provider Kuns Opal HARGROVE Primary Care Provider [phone] Kuns, DO Opal Primary Care Provider [phone] DO Bhupinder Mcintyre Attending Provider Kuns, DO Wiggins Attending Provider [phone] Kuns Opal HARGROVE Primary Care Provider Opal Ga DO Primary Care Provider JUNE, RANDI F Admitting Unavailable JUNE, MARCELLUSN F Attending Unavailable OPAL GA Primary Care Unavailable ORIANA, OLUREMI A Consulting Unavailable Kuns DO, Opal Primary Care Provider [phone] Tjs DOOpal Attending Provider Bunting DO, Sandip [...] Provider Daily DO, Opal Primary Care Provider [phone] Amy TIDWELL, Mitchell Admit Provider [phone] Michele Knight MD Attending Provider Randi Batista MD Attending Provider Bunting DO, Sandip Attending Provider Bunting DO, Sandip R Attending Provider Veronica HARGROVE, Marcos Fink Emergency Provider Daily DOOpal Primary Care Provider Mitchell Reyes MD Admit Provider Michele Knight MD Attending Provider Randi Batista MD Attending Provider [phone] Bunting DO, Sandip Attending Provider Bunting DO, Sandip R Attending Provider Tjs , Opal Primary Care Provider [phone] Tjs Opal HARGROVE Primary Care Provider [phone] Unavailable Primary Care Provider Unavailleigh ann e Kiera BULLDOZER OPERATOR, Melvi M Emergency Provider [phone] Ramona DO, Sandip R Primary Care Provider [phone] Julian TIDWELL, Mario Admit Provider Julian TIDWELL, Mario Attending Provider [phone] Talisha TIDWELL, Keith Other Provider [phone] Shane TIDWELL, Vinay Myers Other Provider [phone] Trisha Hebert MD Other Provider Walter TIDWELL, Ronald Urbina Other Provider [phone] Lester TIDWELL, Keith Fink Other Provider Marvin TIDWELL, Albert Whitmore Other Provider [phone] Negro TIDWELL, Bayron Other Provider [phone] Laron OUTREACH DIRECTOR-C, Nkechi Burnette Other Provider [facility] [place] Other Provider Gail TIDWELL, Frankie Other Provider Dimitry TIDWELL, Stephanie Attending Provider Trisha Hebert Attending Unavailable Ambar Summers Attending Unavailable BAYRON TOM Attending Unavail able BAYRON TOM Referring Unavail able Nkechi Larry Attending Unavailable Ambar Summers Attending Unavailable Tye Pompa Attending Unavailable [facility] BULLDOZER OPERATOR-SEED CLEANING MANAGER, Tamar Asencio Attending [facility] Tye Pompa Attending Unavailable [facility] BULLDOZER OPERATOR-SEED CLEANING MANAGER, Tmaar Asencio Attending [facility] BULLDOZER OPERATOR-SEED CLEANING MANAGER, Tamar Asencio Attending U navailable [facility] BULLDOZER OPERATOR-SEED CLEANING MANAGER, Tamar Asencio Attending U navailable Francisco Javier [...] DO, Tavo Be Primary Care Unavai labfrederic [facility], Sandip R Attending Provider Melvi Qureshi APRN Emergency Provider [facility], Sandip R Primary Care Provider Julian TIDWELL, Mario Admit Provider Keith Woodall MD Other Provider Vinay Lynn MD Other Provider [phone] Trisha Hebert MD Other Provider Walter TIDWELL, Ronald Urbina Other Provider Keith Batista MD Other Provider Albert Wong MD Other Provider [phone] Negro TIDWELL, Bayron Other Provider Laron ALLEN-C, Nkechi Burnette Other Provider Jason [facility], Ella Other Provider Frankie Reynolds MD Other Provider Stephanie Moraes MD Attending Provider [phone] Julian TIDWELL, Mario Other Provider Itzkowitz DO, Bryce Other Provider Frankie Reynolds MD Attending Provider Opal Ga DO Primary Care Provider Opal Ga DO Attending Provider [phone] NO FAMILY, PHYSICIAN Primary Care Provider Unava ilable Bunting DO, Sandip R Attending Provider Keely Montoya APRN Attending Provider Bunting DO, Sandip R Attending Provider [phone] Bhupinder Mcintyre DO Attending Provider [phone] Bunting DO, Sandip R Attending Provider Bunting [...] Provider Jovany Stovall MD Other Provider Frankie Johnsno DO Attending Provider [phone] TAVO MCINTYRE Attending Unavailable OPAL GA Primary Care Unavailable Frankie Reynolds MD Attending Provider Terence Steele PA-C Emergency Provider Frankie Johnson DO Admit Provider Franck Gagnon DO Other Provider Jovany Stovall MD Attending Provider [phone] Jovany Stovall MD Other Provider Frankie Johnson DO Attending Provider [phone] Opal Ga DO Attending Provider Opal Ga DO Primary Care Provider Terence Steele PA-C Emergency Provider Frankie Johnson DO Admit Provider Franck Gagnon DO Other Provider Jovany Stovall MD Attending Provider Jovany Sotvall MD Other Provider Sree Thao DO Emergency Provider Akash Mccartney MD Admit Provider Akash Mccartney MD Attending Provider Opal Ga DO Primary Care Provider [phone] Frankie Reynolds MD Attending Provider Terence Steele PA-C Emergency Provider Frankie Johnson DO Admit Provider Franck Gagnon DO Other Provider Jovany Stovall MD Attending Provider Jovany Stovall MD Other Provider Keely Montoya APRN Attending Provider Sree Thao DO Emergency Provider Akash Mccartney MD Admit Provider Michele Knight MD Attending Provider Opal Ga DO Primary Care Provider [phone] Keely Montoya APRN Attending Provider Michele Knight MD Attending Provider [phone] Niki OUTREACH DIRECTOR-C, Cristy Attending Provider [phone] Paul , Liliana Dasilva Attending [facility] Primary Care Provider Niki OUTREACH DIRECTOR-C, Cristy Attending Provider Marker DO, Liliana Dasilva Attending Provider [phone] Clarence Schroeder DO Attending Provider Sha Pepe MD Attending Provider Bunting, Sandip R Attending Unavailable Bunting, Sandip R Admitting Unavailable Michele Knight Attending Unavailable Opal Ga Primary [facility] Care Unavailable DoameAkash cody Admitting Unavailab [...] Sandip Attending Unavailable Michele Knight Attending Unavailable [facility] Unavailable Amy, Mitchell Admitting [...] Attending Unavailable Marker, Liliana Dasilva Admitting Unavailable VernonClarence Attending Unavailable Vernon, Clarence Fink Admitting Unavailable Bunting, Sandip Admitting Unavailable Bunting, Sandip Attending Unavailable Bunting, Sandip R Attending Unavailable Bunting, Sandip R Admitting Unavailable Allergies Allergy ClassificationReported Allergen(s)Allergy TypeDate of OnsetReaction(s) Facility (20 sources)fentaNYL; Translations: [Duragesic-75 PT72]Drug Vvjzfac51-25-2694 Dizziness, Nausea [facility]UnT[facility] (20 sources)Indomethacin; Translations: [Indocin]Drug Eieodfe29-43-9167SjnpqTIAllison [place] [address] DO Work Phone: (20 sources)Penicillins; Translations: [Penicillins]Allergy to drug (finding) 07-33-1293Trkcl, WeaknessOhiohealth O'Bleness HospitalComment on above: 10/09/24 - had a penicillin injection prior to a procedure 20-30 years ago and fell down some stairs afterward (20 sources)zolpidem; Translations: [Ambien]Drug Njgnjpa07-56-5622Bcoaisd, Other (See Comments)-[facility] [address] DO Work Phone: (20 sources)Penicillin; Translations: [penicillin]Drug Ndarjye61-92-4190 anaphylaxisOhiohealth O'Bleness Hospital (20 sources)Duragesic-75Drug oixkjmf70-31-6751uehqsuVsectzvhd Regional Medical Center (20 sources)fentaNYL; Translations: [fentaNYL]Drug Mguwypp49-76-2526Xcdnmmhrp, Dizziness, loopy [facility] (20 sources)Indomethacin; Translations: [INDOMETHACIN]Drug Yaxcaln16-76-6954 DizzinessOhiohealth O'Bleness Hospital (20 sources)zolpidem; Translations: [ZOLPIDEM]Drug Zyzkght61-16-2344Ocsmjiyvk, Confusion, memory lossOhiohealth O'Bleness Hospital (1 source)fentaNYLDrug AllergyThe [facility] (2 sources)PenicillinsDrug allergy (disorder)44-39-3781Sme [facility] Repository (1 source)ProcyclidineDrug AllergyThe [facility] (1 source)zolpidemDrug AllergyThe [facility] (4 sources)PenicillinsDrug Zkrzkcf42-42-2913Cfvqf, Mental Status Change [facility] Work Phone: (1 source)Duragesic-25; Translations: [Duragesic-25]Propensity to adverse reactions (disorder)[facility] Repository (1 source)FentaNYL Matrix; Translations: [FentaNYL Matrix]Propensity to adverse reactions (disorder)[facility] Repository (1 source)PenicillinsDrug allergy (disorder)32-88-0001LkkdnjvwuOhiohealth O'Bleness Hospital Repository Medications Current Medications MedicationDrug Class(es)DatesSig (Normalized)Sig (Original)albuterol 0.833 mg/ml / ipratropium bromide 0.167 mg/ml inhalation solution (20 sources)Anticholinergic, beta2-Adrenergic AgonistStart: 13-05-8174Wjvte: 87-12-2601arnl 1 mL by inhalation three times dailyStart: 07-12-2024 End: 78-49-5108Shzff: 07-12-2024 End: 07-08-3827mddv 1 mL by inhalation every six hours as needed for wheezing Ipratropium-Albuterol 0.5 mg-3 mg(2.5 mg base)/3 mL solution for nebulization Discontinued 3 ML INHALATION Every 6 hours as needed for shortness of breath or wheezing July 12, 2024 12:00am September 1:59pmazithromycin 250 mg oral tablet (3 sources)Macrolide AntimicrobialStart: 77-25-7090Smfvyesnz Z-Jed 250 MG as directed Orally Sep, Activebudesonide 0.25 mg/ml inhalation suspension (4 sources)CorticosteroidStart: 87-71-8955Ibnmd: 75-69-6068ohsh 0.5 mg by inhalation twice dailybumetanide 1 mg oral tablet (20 sources)Loop DiureticStart: mg, IntraVENous, ONCE, 1 dose, On 02/25/24 at 0900Start: 10-17-2019 End: 13-62-7948Gvvfp: 10-17-2019 End: 25-02-3693Esrho: 01-14-2016 End: 15-99-6341crnz 1 tablet by mouth once dailyBumetanide 1 mg tablet Discontinued 1 MG PO Daily June 06, 2023 12:00am June 06, 2023 3:49pmStart: 54-94-2382fexy 0.5 tablet by mouth once daily as neededBumex 1 MG 0.5 tablet Orally Once a day PRN Jan, ActiveStart: 00-41-2279usdp 1 tablet by mouth every other day as neededBumex 1 MG 1 tablet Orally every other day PRN Jan, ActiveStart: 19-40-6787PEXGW 2 MG TABLET Take one(1) tablet daily. 0 04/07/2004 Activecefdinir 300 mg oral capsule (1 source)Cephalosporin AntibacterialStart: 02-27-2024 End: 96-73-4473hpgc 1 capsule by mouth twice dailycefdinir (OMNICEF) [...] mg oral capsule (1 source)Nonsteroidal Anti-inflammatory DrugStart: 62-32-3170PHEADWLA 200 MG CAPSULE Take one(1) capsule daily. 0 04/07/2004 ActiveCompression Pump (20 sources)Start: 53-32-8988Dqwndwyqxfz Pump as directed to bilateral lower extremity Q other PM Feb, Activecompression stockings 30-40 mmhg (20 sources)Start: 57-33-4460xwveykmnucv stockings 30-40 mmhg as directed knee high as directed 2 pair 30-40mmhg size xs. 5 gvaris, 923cx5, [place] [id number] Sep, ActiveStart: 27-88-7428xntzomnfqsu stockings 30-40 mmhg as directed knee high as directed 2 pair Sep, ActivedilTIAZem hydrochloride 30 mg oral tablet (3 sources)Calcium Channel BlockerStart: 94-01-0783hmlmgijoytif 5 mg oral tablet (1 source)Serotonin Reuptake InhibitorStart: 94-48-5543KJCRGTL 5 MG TABLET take one half daily 0 04/07/2004 Activeglucagon (rdna) 1 mg injection (1 source)Antihypoglycemic AgentStart: 08-31-56470506 ml glucose 100 mg/ml injection (3 sources)Start: 75-52-4982Wdoqb: 11-46-7107mxdrityw bolus 10% 125 mLStart: 01-69-5594Ywnnjxjom (20 sources)Magnesium 400 MG Orally Activetake 1 tablet by mouth once daily Magnesium 400 MG Oral Tablet Take 1 tablet daily Quantity: 0 Refills: 0 Ordered: 05-Jan-2021 DO Activemagnesium oxide 400 mg oral tablet (20 sources)Start: 01-05-2024 End: 51-82-4970nsxy 1 tablet by mouth once dailymagnesium oxide (Mag-Ox) 400 mg (241.3 mg magnesium) tablet Indications: Chronic atrial fibrillation (Multi) , Essential hypertension, benign , Non-ischemic cardiomyopathy (Multi) Take 1 tablet (400 mg) by mouth once daily. 90 tablet 3 01/05/2024 01/04/2025 Active Start: 41-25-1590Jevzo: 45-83-7790gbya 1 tablet by mouth once dailyMagnesium Oxide 400 (240 Mg) MG Oral Tablet TAKE 1 TABLET BY MOUTH EVERY DAY Quantity: 90 Refills: 3 Ordered: 16-Feb-2022 Tavo Mcintyre DO Start : 15-Feb-2022 Active Start: 10-17-2019 End: 83-47-5329stxaozcjy hydrochloride 2.5 mg oral tablet (2 sources)alpha-Adrenergic AgonistStart: 43-49-1636ekzo 2.5 mg by mouth three times daily at mealtime2.5 mg, Oral, 3 TIMES DAILY WITH MEALS, First dose (after last modification) on Tue02/24/24 at 0800, Until Discontinued, Do not give after 1800 or within 4 hrs of bedtime. Hold for sbp > 120Start: 02-22-2024 End: 05-09-0944putx 10 mg by mouth three times daily at zdobvmfu96 mg, Oral, 3 TIMES DAILY WITH MEALS, First dose on Tue02/22/24 at 2130, Until Discontinued, Do not give after 1800 or within 4 hrs of bedtime.Multi For Him (20 sources)Multi For Him Activenystatin 100 unt/mg topical powder (20 sources)Polyene AntifungalStart: 25-46-1109Xtmfv: 44-75-5735Uigmt: 06-06-2023 End: 90-63-1926Shsii: 06-06-2023 End: 92-18-1232Yhgirstw 100,000 unit/gram powder Discontinued 1 APPLIC TOPICAL Twice daily June 06, 2023 12:00amJan2024 11:14am FreeTextSi application Externally Twice a day; Note: Source Status: Taking; Refills: 3; Provider: Daily Wiggins PStart: 13-70-9162Vpqlhosp 774461 UNIT/GM 1 application Externally Twice a day for 30 days Feb, Activeondansetron (ZOFRAN-ODT) disintegrating tablet 4 mg (1 source)Start: 12-22-1577ntysrklrzqq (ZOFRAN-ODT) disintegrating tablet 4 mg microencapsulated potassium chloride 20 meq extended release oral tablet (20 sources)Start: 54-39-9384Npynn: 11-99-0294yjxaoijci chloride (KLOR-CON M) extended release tablet 40 mEqStart: 12-21-2019 End: 85-58-5953Rnqvu: 12-21-2019 End: 57-57-0953qlhh 1 tablet by mouth at bedtimePotassium Chloride 20 mEq Tablet Extended Release Discontinued 20 MEQ PO Bedtime December 21, 201912:00am January 04, 2020 12:33pm On Hold: Resume on 12/26/19.Start: 45-64-1732rqex 1 tablet by mouth once dailyK-Dur 20 mEq 1 tablet orally Once a day Oct, ActiveStart: 04-07-2004 End: 15-42-4279zhcqrhxgfeq dihydrochloride 0.25 mg oral tablet (15 sources)Nonergot Dopamine AgonistStart: 10-05-2024 End: 12-18-2024 End: 23-53-0074zciw 1 tablet by mouth once dailypramipexole (MIRAPEX) 0.25 MG tablet Take 1 tablet by mouth daily 02/27/2024 Discontinued (Stop Taking at Discharge)terazosin 2 mg oral capsule (1 source)alpha-Adrenergic BlockerStart: 44-59-1268LCFBSN 2 MG CAPSULE Take one(1) capsule daily. 0 04/07/2004 Active Completed/Discontinued Medications MedicationDrug Class(es)DatesSig (Normalized)Sig (Original)acetaminophen 500 mg oral tablet (20 sources)Start: 03-10-2024 End: 86-13-9705Oqitt: 03-10-2024 End: 80-77-9172enzf 1 tablet by mouth three times daily as needed for pain Acetaminophen (Acetaminophen Extra Strength) 500 mg tablet Discontinued 500 MG PO Three times dailyas needed for pain 20 July 17, 2024 1:26pm December 12, 2024 3:21pmStart: 83-46-7296mktd 1 tablet by mouth twice dailyAcetaminophen (Acetaminophen Extra Strength) 500 mg tablet Active 500 MG PO Twice daily March 10, 2024 12:00amStart: 25-49-9988414 mg, Rectal, EVERY 4 HOURS PRN, Starting on 02/25/24 at 0700, Until Discontinued, Pain Mild (1-3), Fever, Maximum dose of acetaminophen is 4000 mg from all sources in 24 hours.Start: 06-06-2023 End: 93-89-4436Vjvkd: 06-06-2023 End: 98-01-0094Nivyi: 01-04-2020 End: 41-14-6502Wzezu: 01-04-2020 End: 78-68-9690tvrq 2 tablets by mouth twice dailyAcetaminophen 500 mg Tablet Discontinued 1000 MG PO Twice daily 60 0 January 04, 2020 12:00am June 06, 2023 11:56amStart: 01-04-2020 End: 72-57-1328Qsnwa: 01-04-2020 End: 81-84-9420pbal 1000 mg by mouth twice dailyAcetaminophen Discontinued 1000 MG PO Twice daily January 04, 2020 12:00am June 06, 2023 11:56amStart: 10-17-2019 End: 47-39-8591Hqtqy: 10-17-2019 End: 82-80-0263ykdc 2 tablets by mouth twice dailyAcetaminophen (Tylenol) 325 mg Tablet Discontinued 650 MG PO Twice daily October 17, 2019 12:00am November 06, 2019 9:42am paintake 1 capsule by mouth every six hoursTylenol 325 MG 1 capsule as needed Orally every 6 hrs Activeacetaminophen 325 mg / HYDROcodone bitartrate 5 mg oral tablet (20 sources)Opioid AgonistStart: 11-06-2019 End: 85-05-3961Smlat: 11-06-2019 End: 41-33-8986xand 1 tablet by mouth every six hours as needed for pain Hydrocodone-Acetaminophen ([place]) 5-325 mg tablet Discontinued 1 TAB PO Q6H as needed for pain 10 0Sept2019November 06, 2019 9:42am Other injury of unspecified body regionStart: 11-06-2019 End: 11-79-6047Ysega: 11-06-2019 End: 56-88-4115jcea 1 tablet by mouth every six hours as needed for pain Hydrocodone-Acetaminophen ([place]) 5-325 mg tablet Discontinued 1 TAB PO Q6H as needed for pain 10 November 06, 2019 November 05, 2020 9:42amStart: 11-06-2019 End: 82-62-9148sggr 1 tablet by mouth every six hours as needed for pain Hydrocodone-Acetaminophen ([place]) 5-325 mg tablet Discontinued 1 TAB PO Q6H as needed for pain November 06, 2019 November 06, 2019 9:42amStart: 11-06-2019 End: 88-16-5234gykj 1 tablet by mouth every six hours as needed for pain Hydrocodone-Acetaminophen ([place]) 5-325 mg tablet Discontinued 1 TAB PO Q6H as needed for pain November 06, 2019 November 06, 2019 9:42amStart: 11-06-2019 End: 59-44-7403csax 1 tablet by mouth every six hours as needed for pain Hydrocodone-Acetaminophen ([place]) 5-325 mg tablet Discontinued 1 TAB PO Q6H as needed for pain November 06, 2019 November 06, 2019 9:42amStart: 11-06-2019 End: 72-15-9515mekg 1 tablet by mouth every six hours as needed for pain Hydrocodone-Acetaminophen ([place]) 5-325 mg tablet Discontinued 1 TAB PO Q6H as needed for pain November 06, 2019 November 06, 2019 9:42amStart: 11-06-2019 End: 24-22-3593mvop 1 tablet by mouth every six hours as needed for pain Hydrocodone-Acetaminophen ([place]) 5-325 mg tablet Discontinued 1 TAB PO Q6H as needed for pain November 06, 2019 November 06, 2019 9:42amStart: 11-06-2019 End: 81-24-8852Hdcar: 11-06-2019 End: 94-26-2823Alqti: 11-06-2019 End: 86-16-9908atoe 1 tablet by mouth every six hours as needed for pain Hydrocodone-Acetaminophen ([place]) 5-325 mg tablet Discontinued 1 TAB PO Q6H as needed for pain November 06, 2019 November 06, 2019 9:42amStart: 11-06-2019 End: 38-85-4321brje 1 tablet by mouth every six hours as needed for pain Hydrocodone-Acetaminophen ([place]) 5-325 mg tablet Discontinued 1 TAB PO Q6H as needed for pain November 06, 2019 November 06, 2019 9:42amStart: 11-06-2019 End: 05-57-5785lcex 1 tablet by mouth every six hours as needed for pain Hydrocodone-Acetaminophen ([place]) 5-325 mg tablet Discontinued 1 TAB PO Q6H as needed for pain November 06, 2019 November 06, 2019 9:42amStart: 11-06-2019 End: 58-75-9185ghod 1 tablet by mouth every six hours as needed for pain Hydrocodone-Acetaminophen ([place]) 5-325 mg tablet Discontinued 1 TAB PO Q6H as needed for pain 10 November 06, 2019 November 06, 2019 9:42amStart: 11-06-2019 End: 20-94-1663Xvgit: 11-06-2019 End: 86-99-7936Voyne: 11-06-2019 End: 38-07-4989Hxkgb: 11-06-2019 End: 79-80-4014Ypkgv: 11-06-2019 End: 92-71-4176Arrgx: 11-06-2019 End: 40-08-4473capl 1 tablet by mouth every six hours as needed for pain Hydrocodone-Acetaminophen ([place]) 5-325 mg tablet Discontinued 1 TAB PO Q6H as needed for pain November 06, 2019 November 06, 2019 9:42amStart: 11-06-2019 End: 35-87-9216aawy 1 tablet by mouth every six hours as needed for pain Hydrocodone-Acetaminophen ([place]) 5-325 mg tablet Discontinued 1 TAB PO Q6H as needed for pain November 06, 2019 November 06, 2019 9:42amStart: 11-06-2019 End: 13-73-9870Fewie: 11-06-2019 End: 23-16-8948Zbonk: 11-06-2019 End: 17-86-4322nxys 1 tablet by mouth every six hours as needed for pain Hydrocodone-Acetaminophen ([place]) 5-325 mg tablet Discontinued 1 TAB PO Q6H as needed for pain November 06, 2019 November 06, 2019 9:42amStart: 11-06-2019 End: 99-34-3553yrux 1 tablet by mouth every six hours as needed for pain Hydrocodone-Acetaminophen ([place]) 5-325 mg tablet Discontinued 1 TAB PO Q6H as needed for pain November 06, 2019 November 06, 2019 9:42amStart: 11-06-2019 End: 21-50-3763vmwy 1 tablet by mouth every six hours as needed for pain Hydrocodone-Acetaminophen ([place]) 5-325 mg tablet Discontinued 1 TAB PO Q6H as needed for pain November 06, 2019 November 06, 2019 9:42amStart: 11-06-2019 End: 02-98-3406irwm 1 tablet by mouth every six hours as needed for pain Hydrocodone-Acetaminophen ([place]) 5-325 mg tablet Discontinued 1 TAB PO Q6H as needed for pain November 06, 2019 November 06, 2019 9:42amStart: 11-06-2019 End: 41-99-3049dxre 1 tablet by mouth every six hours as needed for pain Hydrocodone-Acetaminophen ([place]) 5-325 mg tablet Discontinued 1 TAB PO Q6H as needed for pain November 06, 2019 November 06, 2019 8:42amStart: 11-06-2019 End: 23-43-4263szoi 1 tablet by mouth every six hours as needed for pain Hydrocodone-Acetaminophen ([place]) 5-325 mg tablet Discontinued 1 TAB PO Q6H as needed for pain November 06, 2019 November 06, 2019 8:42amStart: 11-06-2019 End: 72-11-4262vzjc 1 tablet by mouth every six hours as needed for pain Hydrocodone-Acetaminophen ([place]) 5-325 mg tablet Discontinued 1 TAB PO Q6H as needed for pain November 06, 2019 November 06, 2019 8:42amStart: 11-06-2019 End: 34-12-6065xyph 1 tablet by mouth every six hours as needed for pain Hydrocodone-Acetaminophen ([place]) 5-325 mg tablet Discontinued 1 TAB PO Q6H as needed for pain November 06, 2019 November 06, 2019 8:42amStart: 11-06-2019 End: 73-84-5201djxk 1 tablet by mouth every six hours as needed for pain Hydrocodone-Acetaminophen ([place]) 5-325 mg tablet Discontinued 1 TAB PO Q6H as needed for pain November 06, 2019 November 06, 2019 8:42amStart: 11-06-2019 End: 71-99-8477vntq 1 tablet by mouth every six hours as needed for pain Hydrocodone-Acetaminophen ([place]) 5-325 mg tablet Discontinued 1 TAB PO Q6H as needed for pain November 06, 2019 November 06, 2019 8:42amStart: 11-06-2019 End: 34-07-7660afip 1 tablet by mouth every six hoursHydrocodone-Acetaminophen ([place]) 5-325 mg tablet Discontinued 1 TAB PO Q6H November 06, 2019 S 2019 9:42amStart: 11-06-2019 End: 56-44-0944eatc 1 tablet by mouth every six hoursHydrocodone-Acetaminophen ([place]) 5-325 mg tablet Discontinued 1 TAB PO Q6H November 06, 2019 S 2019 9:42amStart: 11-06-2019 End: 99-83-2796uqec 1 tablet by mouth every six hoursHydrocodone-Acetaminophen ([place]) 5-325 mg tablet Discontinued 1 TAB PO Q6H November 06, 2019 S 2019 9:42amStart: 11-06-2019 End: 72-95-0395gtvm 1 tablet by mouth every six hoursHydrocodone-Acetaminophen ([place]) 5-325 mg tablet Discontinued 1 TAB PO Q6H November 06, 2019 S 2019 9:42amStart: 11-06-2019 End: 52-66-5784qnib 1 tablet by mouth every six hoursHydrocodone-Acetaminophen ([place]) 5-325 mg tablet Discontinued 1 TAB PO Q6H November 06, 2019 S 2019 8:42amStart: 11-06-2019 End: 80-31-7312lpiq 1 tablet by mouth every six hoursHydrocodone-Acetaminophen ([place]) 5-325 mg tablet Discontinued 1 TAB PO Q6H November 06, 2019 S 2019 8:42amStart: 11-06-2019 End: 37-10-8406xuuc 1 tablet by mouth every six hoursHydrocodone-Acetaminophen ([place]) 5-325 mg tablet Discontinued 1 TAB PO Q6H November 06, 2019 S 2019 8:42amStart: 11-06-2019 End: 24-10-5409yomd 1 tablet by mouth every six hoursHydrocodone-Acetaminophen ([place]) 5-325 mg tablet Discontinued 1 TAB PO Q6H November 06, 2019 S 2019 8:42amStart: 11-06-2019 End: 97-50-4348ebgo 1 tablet by mouth every six hoursHydrocodone-Acetaminophen ([place]) 5-325 mg tablet Discontinued 1 TAB PO Q6H November 06, 2019 S sheyariel 2019 9:42amStart: 11-06-2019 End: 50-94-6550ecba 1 tablet by mouth every six hoursHydrocodone-Acetaminophen ([place]) 5-325 mg tablet Discontinued 1 TAB PO Q6H November 06, 2019 S sheyariel 2019 9:42amStart: 98-08-3198VJZWNSV 5/500 TABLET as needed 0 04/07/2004 Activeacetaminophen 325 mg / oxyCODONE hydrochloride 5 mg oral tablet (20 sources)Opioid AgonistStart: 06-06-2023 End: 01-97-0782upvx 1 tablet by mouth every six hours as needed for pain Oxycodone-Acetaminophen 5-325 mg tablet Discontinued 1 TAB PO Every 6 hours as needed for pain 8 2 0 July 17, 2024 October 05, 2024 7:29pm Abscess of left lower extremity Cutaneous abscess of left lower limbStart: 02-18-2022 End: 00-60-9950mvux 1 tablet by mouth twice dailyoxyCODONE-acetaminophen (Percocet) 5-325 mg tablet Take 1 tablet by mouth 2 times a day. 07/08/2022 ActiveStart: 01-16-2022 End: 15-39-6537fewo 1 tablet by mouth every eight hours as needed for pain Oxycodone-Acetaminophen 5-325 mg Tablet Discontinued 1 TAB PO Q8H as needed for Moderate Pain 9 3 0Nov2021June 06, 2023 11:57am Low back pain Low back pain, unspecifiedStart: 01-04-2020 End: 24-14-7476atnm 1 tablet by mouth every four hours as needed for pain Oxycodone-Acetaminophen 5-325 mg Tablet Discontinued 1 TAB PO Q4H as needed for Mild Pain 30 7 0 January 04, 2020 January 16, 2022 1:30pm Status post total left knee replacement Presence of leftartificial knee jointStart: 11-06-2019 End: 49-12-5208Xjygn: 11-06-2019 End: 67-17-3802pjir 1 tablet by mouth every four to [...] Orally every [address] Brambila PRN Zmnlvm12 ml albumin human, skilled nursing 250 mg/ml [...] tablet (20 sources)Xanthine Oxidase InhibitorStart: 04-07-2004 End: 01-14-2969zgpqyuwx 5 mg oral tablet (20 sources)Factor Xa InhibitorStart: 12-12-2024 End: 69-22-7931Dpibs: 03-15-2024 End: 64-43-5966Iaywx: 03-15-2024 End: 87-88-6684ghqh 2 tablets by mouth twice dailyApixaban (Eliquis) 2.5 mg Tablet Discontinued 5 MG PO Twice daily July 12, 2024 12:00am December 18, 2024 11:08amStart: 10-17-2019 End: 51-26-5291tmeiseovgevd 40 mg oral tablet (20 sources)HMG-CoA Reductase InhibitorStart: 10-17-2019 End: 01-55-0923mujgxnkcnn hydrochloride 0.137 mg/actuat metered dose nasal spray (20 sources)Histamine-1 Receptor AntagonistStart: 10-17-2019 End: 54-08-9709kwzbcgxlod hydrochloride 0.137 mg/actuat / fluticasone propionate 0.05 mg/actuat metered dose nasalspray (20 sources)Corticosteroid, Histamine-1 Receptor AntagonistStart: 10-17-2019 End: 46-06-9615Dkpbr: 10-17-2019 End: 11-67-4173Xrxnvwagwt-Fluticasone 137-50 mcg/spray [place],Non-Aerosol Discontinued 1 SPRAY INTRANASAL Twice daily October 17, 2019 12:00am December 24, 2019 11:02amStart: 10-17-2019 End: 32-17-7686Ahxwquvvia-Fluticasone Discontinued 1 SPRAY INTRANASAL Twice daily October 16, 2019 11:00pm December 24, 2019 10:02amStart: 10-17-2019 End: 75-73-7601Qisxmwlgqf-Fluticasone Discontinued 1 SPRAY INTRANASAL Twice daily October 17, 2019 12:00am December 24, 2019 11:02amAzelastine-Fluticasone 137-50 mcg/spray [place],Non-Aerosol (12 sources)Start: 10-17-2019 End: 26-39-0284Ylqcwibldx-Fluticasone 137-50 mcg/spray [place],Non-Aerosol Discontinued 1 SPRAY INTRANASAL Twice daily October 17, 2019 12:00am December 24, 2019 11:02amStart: 10-17-2019 End: 28-14-8764Yempqqhmdc-Fluticasone 137-50 mcg/spray [place],Non-Aerosol Discontinued 1 SPRAY INTRANASAL Twice daily October 16, 2019 11:00pm December 24, 2019 10:02ambisacodyl 5 mg delayed release oral tablet (3 sources)Stimulant LaxativeStart: 32-67-3699lspz 10 mg by mouth once daily10 mg, Oral, DAILY, First dose (after last modification) on Tue02/23/24 at 0900, Until Discontinued, Do not crush or break., Post-opStart: 82-39-7923Oegsb: 02-21-2024 End: 71-79-7657wylp 5 mg by mouth once daily5 mg, Oral, DAILY, First dose on Tue02/21/24 at 1945, Until Discontinued, Do not crush or break., Post-opcarvedilol 3.125 mg oral tablet (20 sources)alpha-Adrenergic Saroj, beta-Adrenergic BlockerStart: 03-15-2024 End: 09-27-4338Kstsx: 02-16-2024 End: 58-18-7612Xnldx: 10-17-2019 End: 94-78-7164lzSCNuweb (ANCEF) 2,000 mg in sterile water 20 mL IV syringe (1 source)Start: 02-21-2024 End: 42,000 mg, IntraVENous, EVERY 8 HOURS, 2 doses, First dose on Tue02/21/24 at 2000, Last dose on Tue02/22/24 at 0400, Antimicrobial Indications: Surgical Prophylaxis, Administer over 5 mins. Reconstitute 2 g vial with 20 mL Sterile Water. Withdraw entire contents., Post-opcefepime 2000 mg injection (16 sources)Cephalosporin AntibacterialStart: 07-17-2024 End: 92-76-8296hvtwiyyxfz 500 mg oral capsule (20 sources)Cephalosporin AntibacterialStart: 04-11-2017 End: 51-52-1418wdpltfjxlkfgz 500 mg oral tablet (15 sources)Quinolone AntimicrobialStart: 08-29-2024 End: 42-62-6367ikotskzvhvi 300 mg oral capsule (20 sources)Lincosamide AntibacterialStart: 03-10-2024 End: 04-69-8981skrxzgwwflqdnoa hydrochloride 10 mg oral tablet (1 source)Muscle RelaxantStart: 41-37-9094toon 10 mg by mouth three times daily as mg, Oral, 3 TIMES DAILY PRN, Starting on Tue02/21/24 at 1918, Until Discontinued, Muscle spasms, Post-opdiclofenac sodium 0.01 mg/mg topical gel (20 sources)Nonsteroidal Anti-inflammatory DrugStart: 01-04-2020 End: 40-62-9336Ttjfw: 01-04-2020 End: 09-45-8282julir 2 g topically three times dailyDiclofenac Sodium Discontinued 2 GM TOPICAL Three times daily January 04, 2020 12:00am January 09, 2022 2:10pmdigoxin 0.125 mg oral tablet (20 sources)Cardiac GlycosideStart: 10-17-2019 End: 85-40-0284pxkc 1 tablet by mouth every twenty-four hoursDigoxin 125 MCG 1 tablet Orally Once a day Activedocusate sodium 100 mg oral capsule (20 sources)Start: 11-06-2019 End: 97-65-5304Eshyd: 11-06-2019 End: 08-74-9885epwq 1 capsule by mouth once daily as neededDocusate Sodium 100 mg capsule Discontinued 100 MG PO Daily as needed June 06, 2023 12:00am Januar y 2024 11:13amdocusate sodium 50 mg / sennosides, skilled nursing 8.6 mg oral tablet (2 sources)Start: 02-21-2024 End: 93-78-0955uths 2 tablets by mouth twice daily2 tablet, Oral, 2 TIMES DAILY, First dose (after last modification) on Tue02/22/24 at 2100, Until D iscontinued, Post-opdoxycycline hyclate 100 mg oral tablet (20 sources)Tetracycline-class DrugStart: 07-12-2024 End: 81-59-0038Ldpgq: 12-23-2023 End: 41-20-6444tkbobgknh 1000 mg injection (3 sources)Penem AntibacterialStart: 12-18-2024 End: 55-53-1579yuypglavpmr 3 mg oral tablet (20 sources)Start: 11-16-2021 End: 80-42-6819Jppho: 16-62-8742ndjc 1 tablet by mouth every twenty-four hours Eszopiclone 3 MG 1 tablet immediately before bedtime Orally Once a day May, ActiveStart: 10-17-2019 End: 61-90-4858ecfcgibvzr 0.92 mg/ml / menthol 0.42 mg/ml / methyl salicylate 0.6 mg/ml / thymol 0.64 mg/ml mouthwash (1 source)Start: 09-42-4725dgic 15 mL by mouth three times daily as sttgse91 mL, Swish & Spit, 3 TIMES DAILY PRN, Starting on 02/25/24 at 0814, Until Discontinued, Dry Mouthfluticasone propionate 0.05 mg/actuat metered dose nasal spray (20 sources)CorticosteroidStart: 01-09-2022 End: 43-43-7665Qezraqhnksz Propionate 50 mcg/actuation spray,suspension Discontinued 1 SPRAY NARES-BOTH Daily at bedtime as needed for Nasal Congestion January 09, 2022 2:10pm June 06, 2023 11:57amStart: 01-04-2020 End: 29-39-4125Hmawz: 01-04-2020 End: 52-05-7766Hiydsnayppy Propionate 50 mcg/actuation [place],Suspension Discontinued 1 SPRAY NARES-BOTH Twice daily January 04, 2020 12:00am January 09, 2022 2:10pmfolic acid 1 mg oral tablet (1 source)Start: 55-71-2317ypnd 1 mg by mouth once daily1 mg, Oral, DAILY, First dose on Tue02/24/24 at 1300, Until Discontinuedfolic acid 2.5 mg / vitamin b12 1 mg / vitamin b6 25 mg oral tablet (20 sources)Vitamin C43Lxkkr: 01-04-2020 End: 73-50-9952Dijny: 01-04-2020 End: 63-57-2605dwlv 1 tablet by mouth once dailyFolic Acid-Vit [...] Janny meredith Jenna: kellyinet overrideStart: 02-21-2024 End: 39-18-7423aoiz 0.25 mg by mouth once0.25 mg, IntraVENous, ONCE, 1 dose, On Tue02/21/24 at 0915, If oral and IV narcotics ordered, use oral first and only use IV if oral is ineffective or cannot take oral. Do Not give oral and IV within 1 hour of each other unless specifically ordered.hydrOXYzine pamoate 25 mg oral capsule (20 sources)AntihistamineStart: 11-06-2019 End: 98-02-7838Osmfl: 11-06-2019 End: 20-31-4708Usoahrx (20 sources)Start: 07-17-9936Pjniltk Aug, 3 mLStart: 91-26-0681Takclxs Aug, 3 mLlactulose 667 mg/ml oral solution (20 sources)Osmotic LaxativeStart: 01-04-2020 End: 14-53-7653Ebxcqxvwt Not-Takinglevothyroxine sodium 0.15 mg oral tablet (20 sources)l-ThyroxineStart: 40-42-2884Svjrwffky 137 MCG 1 tablet every morning on an empty stomach Orally Once a day for 90 days Aug, ActiveStart: 10-17-2017 End: 02-40-9358Kjvsb: 04-07-2004 End: 61-04-9599lcrm 1 tablet by mouth once daily in the morningLevothyroxine (Synthroid) 150 mcg tablet Discontinued 150 MCG PO Every morning June 06, 2023 12:00am September 21, 2023 9:53amlinezolid 600 mg oral tablet (10 sources)Oxazolidinone AntibacterialStart: 10-10-2024 End: 17-06-4259wuxjkbtxqg 2.5 mg oral tablet (1 source)Angiotensin Converting Enzyme InhibitorStart: 73-53-7321uwoe 2.5 mg by mouth once daily2.5 mg, Oral, DAILY, First dose on 02/25/24 at 0900, Until Discontinued, Hold for SBPmagnesium hydroxide 80 mg/ml oral suspension (1 source)Start: 33-14-4498bhjf 30 mL by mouth once daily as needed for ebjaxjxszssd59 mL, Oral, DAILY PRN, Starting on 02/21/24 at 1918, Until Discontinued, Constipation, First line therapy for constipation., Post-op melatonin 5 mg oral tablet (20 sources)Start: 01-04-2020 End: 69-77-3933uicKBqmpou 5 mg oral tablet (20 sources)Thiazide-like DiureticStart: 03-10-2024 End: hr mirabegron 25 mg extended release oral tablet (20 sources)beta3-Adrenergic AgonistStart: 01-04-2020 End: 83-57-7384Bnnov: 10-17-2019 End: 67-22-8531Gkerfedulppz (Daily Multi-Vitamin) tablet (20 sources)Start: 06-06-2023 End: 64-02-9599fiiz 1 tablet by mouth once dailyMultivitamin (Daily Multi- Vitamin) tablet Discontinued 1 TAB PO Daily June 06, 2023 12:00am March 10, 2024 11:14amStart: 06-06-2023 End: 50-45-9141qsxm 1 tablet by mouth once dailyMultivitamin (Daily Multi- Vitamin) tablet Discontinued 1 TAB PO Daily June 05, 2023 11:00pm March 10, 2024 10:14amStart: 01-81-9400lsgx 1 tablet by mouth once dailyMultivitamin (Daily Multi-Vitamin) tablet Active 1 TAB PO Daily June 06, 2023 12:00am mupirocin 0.02 mg/mg topical ointment (20 sources)RNA Synthetase Inhibitor AntibacterialStart: 06-06-2023 End: 92-60-5400Xaidz: 06-06-2023 End: 09-12-3090Kzfhuulee Active 1 APPLIC TOPICAL Twice daily December 23, 2023 12:06pm 1 application Externally Twice a dayStart: 80-11-8034Rlbyvphfl 2 % 1 application Externally Twice a day Jan, Btcbvg41 hr oxybutynin chloride 10 mg extended release oral tablet (20 sources)Cholinergic Muscarinic AntagonistStart: 06-06-2023 End: 33-27-1521Vwkdy: 01-04-2020 End: 17-43-1751Eqcli: 01-04-2020 End: 34-31-7597vdii 10 mg by mouth once daily at lunchOxybutynin Chloride Discontinued 10 MG PO Daily with lunch January 04, 2020 12:00am January 2:36pmStart: 10-17-2019 End: 07-67-2188plgSCMITH hydrochloride 5 mg oral tablet (12 sources)Opioid AgonistStart: 10-10-2024 End: 08-64-5561Kylvq: 03-34-5006ckhZTPGRA (ROXICODONE) immediate release tablet 5 mgStart: 02-21-2024 End: 31-23-2017qhjb 1 dose by mouth once5 mg, Oral, ONCE PRN, 1 dose, Starting on Tue02/21/24 at 1510, Until Tue02/21/24 at 1548, Pain Moderate (4-6), Pain Severe (7-10), PHASE II, PACU onlypolyethylene glycol 3350 02404 mg powder for oral solution (19 sources)Osmotic LaxativeStart: 07-17-2024 End: 67-60-9471Feldw: 02-21-2024 End: 24-25-710181 g, Oral, ONCE, 1 dose, On Tue02/24/24 at 1230, Stir and dissolve one packet of powder (17 g) inany 4 to 8 ounces of beverage (cold, hot or room temperature) then drinksacubitril 24 mg / valsartan 26 mg oral tablet (20 sources)Angiotensin 2 Receptor BlockerStart: 10-17-2019 End: 43-40-1052Lezpk: 10-17-2019 End: 63-32-3363owjo 1 tablet by mouth twice dailySacubitril-Valsartan (Entresto) 24-26 mg Tablet Discontinued 1 TAB PO Twice daily 60 0 January 04, 2020 12:00am January 16, 2022 1:30pmENTRESTO 24 mg/26 mg 1 orally twice a day Rnqfnz07 ml sodium chloride 9 mg/ml injection (8 sources)Start: 02-22-2024 End: 71-12-9508698 mL (5.79 mL/kg), IntraVENous, at 491.8 mL/hr, Administer over 61 Minutes, ONCE, On Tue02/22/24at 2044, For 1 doseStart: 17-66-02395-40 mL, IntraVENous, EVERY 12 HOURS SCHEDULED (2 [...] or Central Line = 20 mL/lumen, Post-opStart: 35-58-1750Jwzpe: 02-21-2024 End: 61-02-2368JasubJJJcvc, at 125 mL/hr, CONTINUOUS, Starting on Tue02/21/24 at 1945, Post-opStart: 26-30-4812lpqu 20 mL intravenously every hourIntraVENous, at 5-250 [...] rate field of order., Post-opStart: 02-21-2024 End: 66-94-3707NwajmISVsmh, at 5-250 mL/hr, PRN, if patient receiving [...] Reductase Inhibitor Antibacterial, Sulfonamide AntimicrobialStart: 12-23-2023 End: 88-38-4261Nfrgs: 12-23-2023 End: 17-16-9974cvhb 1 tablet by mouth twice dailySulfamethoxazole-Trimethoprim (Bactrim Ds) 800-160 mg tablet Discontinued 1 TAB PO Twice daily 20 0October 2023 12:00am February 13, 2024 10:23am Open wound of skin Other injury of unspecified body region, initial encounterStart: 01-09-2022 End: 21-34-0086Xkwin: 01-07-2022 End: 59-19-2214zefg 1 tablet by mouth twice dailySulfamethoxazole-Trimethoprim (Bactrim Ds) 800-160 mg Tablet Discontinued 1 TAB PO Twice daily January 09, 2022 12:00am January 16, 2022 1:30pm started 01/08/22 for 7 daysStart: 12-21-2019 End: 96-40-0932Yoega: 12-21-2019 End: 18-24-5595clch 1 tablet by mouth every twelve hoursSulfamethoxazole- Trimethoprim (Bactrim Ds) 800-160 mg Tablet Discontinued 1 TAB PO Q12H December 21, 2019 12:00am December 25, 2019 1:37pmtamsulosin hydrochloride 0.4 mg oral capsule (20 sources)alpha-Adrenergic BlockerStart: 03-15-2024 End: 15-27-1681nwecvctm 100 mg oral tablet (1 source)Start: 41-38-4705cpbz 100 mg by mouth once yrvha336 mg, Oral, DAILY, First dose on Tue02/24/24 at 1300, Until DiscontinuedtraZODone hydrochloride 50 mg oral tablet (20 sources)Serotonin Reuptake InhibitorStart: 01-09-2022 End: 92-73-8003Pajshyadugprw (20 sources)CorticosteroidStart: 59-39-6530Ianimix -40 mg July, 40 mg vancomycin 1000 mg injection (16 sources)Glycopeptide AntibacterialStart: 07-17-2024 End: 09-18-2024 (18 sources)Start: 06-06-2023 End: 02-10-6236Rzqjh: 10-17-2019 End: 12-24-2019 Problems Active Problems Problem ClassificationProblemDateDocumented DateEpisodic/ChronicAcute cerebrovascular disease (20 sources)Intracranial hemorrhage; Translations: [Nontraumatic intracranial hemorrhage, unspecified]Onset: 281428-78-8334DtyjqqdPfmfygs dysrhythmias (20 sources)Chronic atrial fibrillation; Translations: [Atrial fibrillation] Onset: 01-19-2021 Resolved: 50-23-7821MpcgeaxQofaobp dysrhythmias (20 sources)Bradycardia; Translations: [Bradycardia, unspecified]01-10-2022 EpisodicChronic kidney disease (1 source)Chronic kidney disease; Translations: [Chronic kidney disease, stage 3 unspecified]Onset: 66-70-4992Uwafhko ulcer of skin (14 sources)Pressure ulcer of sacral region, stage 2; Translations: [Pressure injury of coccygeal region, stage2]Onset: 679948-07-9968Wvevefa Complication of device; implant or graft (20 sources)Urinary tract infectious disease; Translations: [Infection and inflammatory reaction due to indwelling urethral catheter, initial encounter] Onset: 279344-23-9305YxoruifdAucqyiqdmt heart failure; nonhypertensive (20 sources)Heart failure; Translations: [Heart failure, unspecified]Onset: 08-31-2021 Resolved: 69-23-5152KwqftdxCsqppqkt atherosclerosis and other heart disease (20 sources)Coronary atherosclerosis; Translations: [Coronary atherosclerosis of unspecified type of vessel, [place] or graft]Onset: 550864-20-5015Kzpdzzf Disorders of lipid metabolism (20 sources)Hyperlipidemia; Translations: [Other and unspecified hyperlipidemia] Onset: 01-19-2021 Resolved: 07-61-0132EjsdsovQ Codes: Fall (20 sources)Unspecified fall, initial encounter; Translations: [Fall]Episodic Essential hypertension (20 sources)Benign essential hypertension; Translations: [Benign essential hypertension]Onset: 08-31-2021 Resolved: 20-72-0823KxyuekiPmyhu of unknown origin (20 sources)Fever; Translations: [Fever, unspecified]Onset: 332773-03-9299 EpisodicFluid and electrolyte disorders (20 sources)Dehydration; Translations: [Dehydration]89-43-7603Fdperpvd Genitourinary symptoms and ill-defined conditions (1 source)Urge incontinence; Translations: [URGE INCONTINENCE]Onset: 05-17-2022 ChronicGout and other crystal arthropathies (20 sources)Gout; Translations: [Gout, unspecified]Onset: 09-04-2021 Resolved: 03-36-1975GbwbxrwWadkpsldurl of prostate (20 sources)Benign prostatic hyperplasia; Translations: [Benign prostatic hyperplasia without lower urinary tract symptoms]Onset: 01-19-2021 Resolved: 37-56-1181OxpmyqeNirhtkzprfsc injury (1 source)Traumatic subdural hemorrhage without loss of consciousness, initial encounter; Translations: [Traumatic subdural hemorrhage without loss of consciousness, initial encounter]Onset: 07-12-7406AckzvwabXuatyfh and fatigue (20 sources)Asthenia; Translations: [Weakness]Onset: EpisodicMycoses (3 sources)Candidiasis, unspecified; Translations: [Pain in toe]Episodic Neoplasms of unspecified nature or uncertain behavior (20 sources)Ependymoma ; 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, unspecified]68-74-0707QfsnbfhSsbtwgd on above:1989Open wounds of extremities (1 source)Laceration without foreign body of left upper arm, initial encounter EpisodicOpen wounds of head; neck; and trunk (20 sources)Laceration - injury; Translations: [Laceration]99-18-5045Cuvdzcwl Osteoarthritis (20 sources)Osteoarthritis of left knee joint; 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, left knee]ChronicOsteoporosis (7 sources)Senile osteoporosis; Translations: [Age-related osteoporosis without current pathological fracture]Onset: 648204-48-9118CxacqklNecwo acquired deformities (20 sources)Acquired spondylolisthesis; Translations: [Spondylolysis, lumbar region]EpisodicOther acquired deformities (20 sources)Spondylolysis; Translations: [Spondylolysis, lumbar region] 89-34-9622KppbxhjyOnerw acquired deformities (9 sources)Spondylolysis, lumbar region; Translations: [Acquired spondylolisthesis]32-24-7758VteoqbnzLpxzn aftercare (20 sources)Drug therapy finding; Translations: [Long-term (current) use of other medications]73-32-6529HagmtcsqXkqcs aftercare (20 sources)Long-term current use of anticoagulant; Translations: [Long-term (current) use of anticoagulants]Onset: 373952-08-6285CdvwfinoFnxaa and unspecified benign neoplasm (20 sources)Spinal meningioma; Translations: [Benign neoplasm of spinal meninges]EpisodicOther circulatory disease (7 sources)H/O: atrial fibrillation; Translations: [Personal history of other diseases of circulatory system]EpisodicOther circulatory disease (3 sources)History of sick sinus syndrome; Translations: [Personal history of other diseases of circulatory system]EpisodicOther circulatory disease (1 source)Abnormal foot pulse; Translations: [Other specified symptoms and signs involving the circulatory and respiratory systems]53-51-3254IploqxswFysiv connective tissue disease (20 sources)History of repair of hip joint; Translations: [Presence of left artificial hip joint]ChronicOther connective tissue disease (20 sources)Artificial knee joint present; Translations: [Presence of unspecified artificial knee joint]ChronicOther connective tissue disease (20 sources)History of total knee arthroplasty; Translations: [Presence of left artificial knee joint]11-86-4943GowiuhxAkjgk connective tissue disease (20 sources)Synovial cyst of popliteal space; Translations: [Synovial cyst of popliteal space [[place]], left knee]EpisodicOther connective tissue disease (20 sources)Neuropathic pain; Translations: [Neuralgia and neuritis, unspecified]EpisodicOther connective tissue disease (20 sources)Recurrent falls ; Translations: [Repeated falls]32-39-4283Akryklnf Other connective tissue disease (4 sources)Repeated falls; Translations: [History of fall]Onset: 12-12-2024 21-89-5066EzafetldJtovj connective tissue disease (1 source)Muscle weakness (generalized)EpisodicOther [...] (20 sources)Vascular insufficiency; Translations: [Venous insufficiency (chronic) (peripheral)]43-01-5549LqvpcrbdLiffg diseases of veins and lymphatics (3 sources)Venous insufficiency (chronic) (peripheral); Translations: [Venous (peripheral) insufficiency, unspecified]38-93-4717JhacaikmHwoao ear and sense organ disorders (13 sources)Tinnitus; Translations: [Tinnitus, unspecified ear]EpisodicOther fractures (12 sources)Compression fracture of lumbar spine; Translations: [Wedge compression fracture of first lumbar vertebra, initial encounter for closed fracture]22-36-3599EqftrpigVurmc fractures (1 source)Wedge compression fracture of first lumbar vertebra, initial encounter for closed fracture; Translations: [Wedge compression fracture of first lumbar vertebra, initial encounter for closed fracture]Onset: 87-87-1743OvdcgnjdHzkzg gastrointestinal disorders (20 sources)Constipation; Translations: [Constipation, unspecified]01-09-2022 EpisodicOther gastrointestinal disorders (3 sources)Constipation, unspecified; Translations: [Constipation, unspecified] 89-35-5264NtfbhzonIifim hematologic conditions (5 sources)Raised cardiac enzyme or marker; Translations: [Other specified abnormalities of plasma proteins]92-68-9651XaoraiwxQybyd hematologic conditions (4 sources)Other specified abnormalities of plasma proteins; Translations: [Other abnormal blood chemistry]10-60-2876FbcjdafeOjfty injuries and conditions due to external causes (20 sources)Open wound of skin; Translations: [Other injury of unspecified body region, initial encounter]04-56-1734AdezryuiFyiuq lower respiratory disease (20 sources)Hypoxemia; Translations: [Hypoxemia]38-65-1205PkbofocuZfzrq lower respiratory disease (20 sources)Hypoxia; Translations: [Hypoxemia]32-49-7615VcqvvjoeBvmii nervous system disorders (20 sources)Chronic pain; Translations: [Other chronic pain]ChronicOther nervous system disorders (1 source)Other chronic painOnset: 01-19-2021 Resolved: 72-04-4762SlgllxjLbjxf nervous system disorders (20 sources)Difficulty walking; Translations: [Difficulty in walking, 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]55-64-2642CemqfiiRqwwe nervous system disorders (3 sources)Difficulty in walking, 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; Translations: [Difficulty in walking]65-40-0899PslhjllGhnfp nervous system disorders (20 sources)Muscle weakness; Translations: [Other specified myopathies] 90-51-9608CldndpiIferd nervous system disorders (3 sources)Other specified myopathies; Translations: [Myopathy, unspecified] 33-66-0061AqakxqcZvtre nervous system disorders (1 source)Metabolic encephalopathy; Translations: [Metabolic encephalopathy] Onset: 16-80-0709JzygoqwQvswp non-traumatic joint disorders (20 sources)Multiple joint pain; Translations: [Pain in unspecified joint] EpisodicOther non-traumatic joint disorders (20 sources)Ankle pain; Translations: [Pain in left ankle and joints of left foot]54-43-2513GeosjgwiXizgl nutritional; endocrine; and metabolic disorders (3 sources)Body mass index 30+ - obesity; Translations: [Body Mass Index 33.0- 33.9, adult]Onset: [id number] nutritional; endocrine; and metabolic disorders (20 sources)Obesity; Translations: [Obesity, unspecified]ChronicOther nutritional; endocrine; and metabolic disorders (2 sources)Body mass index (BMI) 30.0-30.9, adult; Translations: [Body mass index (BMI) 30.0-30.9, adult]Onset: 25-29-4140RuzpgprDuaio nutritional; endocrine; and metabolic disorders (1 source)Abnormal weight lossEpisodicOther nutritional; endocrine; and metabolic disorders (3 sources)Overweight in adulthood with body mass index of 25 or more but less than 30; Translations: [Overweight]EpisodicOther screening for suspected conditions (not mental disorders or infectious disease) (20 sources)Echocardiogram abnormal; Translations: [Nonspecific (abnormal) findings on radiological and other examination of other intrathoracic organs] Onset: 01-19-2021 Resolved: 64-63-8965OqndaxrbJwogx skin disorders (20 sources)Abnormality of nail of toe; Translations: [Other nail disorders] EpisodicOther skin disorders (1 source)Actinic keratosisEpisodicOther upper respiratory infections (20 sources)Sinusitis; Translations: [Chronic sinusitis, unspecified]Chronic Pratima-; endo-; and myocarditis; cardiomyopathy (except that caused by tuberculosis or sexually transmitted disease) (20 sources)Cardiomyopathy; Translations: [Other primary cardiomyopathies]Onset: 02-16-2023 Resolved: 558015-84-8572QhdjuwsZorwrecm; pneumothorax; pulmonary collapse (20 sources)Pleural effusion; Translations: [Pleural effusion, 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]25-56-8817BxnwxlclUrpkuvaq codes; unclassified (20 sources)Sleep apnea; Translations: [Sleep apnea, unspecified]01-09-2022 ChronicComment on above:does not use equipmentResidual codes; unclassified (3 sources)Sleep apnea, unspecified; Translations: [Unspecified sleep apnea] 01-28-8757WlbbawwLcoettvt codes; unclassified (7 sources)Swelling - edema - symptom; Translations: [Edema]EpisodicResidual codes; unclassified (20 sources)Edema; Translations: [Edema]Onset: 900644-93-1395Tenrttav Residual codes; unclassified (20 sources)Insomnia; Translations: [Insomnia, unspecified]71-19-3948Kvdzotyq Residual codes; unclassified (8 sources)Insomnia, unspecifiedOnset: 03-05-2021 Resolved: 67-70-8447KukbimfaGvmtpvka codes; unclassified (20 sources)Activity of daily living (ADL) alteration; Translations: [Other specified health status]73-63-2362IdwrprbbPjdaizuq codes; unclassified (20 sources)Edema, generalized; Translations: [Generalized edema]12-21-2019 EpisodicResidual codes; unclassified (20 sources)Patient encounter status; Translations: [Encounter for prophylactic measures, unspecified]45-44-6803OaokksugXejjkpmm codes; unclassified (20 sources)Altered mental status; Translations: [Altered mental status, unspecified]78-35-6002TouzofsaDigxcknx codes; unclassified (1 source)Localized edemaEpisodicResidual codes; unclassified (3 sources)Altered mental status, unspecified; Translations: [Altered mental status]90-49-7811UoncfmtlDlbcqbdm codes; unclassified (3 sources)Generalized edema; Translations: [Edema]56-56-1128IetsuqjwXhqzoree codes; unclassified (7 sources)Other specified health status; Translations: [Other specified conditions influencing health status]15-40-8775TagucsboRnbmdivu codes; unclassified (1 source)Localized edema; Translations: [Localized edema]87-88-5478Wqczyxvi Residual codes; unclassified (1 source)Other specified postprocedural states; Translations: [Other specified postprocedural states]Onset: 23-78-2528XxvgbwvqYqhmryprlio failure; insufficiency; arrest (adult) (20 sources)Acute respiratory failure; Translations: [Acute respiratory failure with hypoxia]98-07-9752RuxbgwsmWanbjukzxiv; intervertebral disc disorders; other back problems (20 sources)Degeneration of lumbar intervertebral disc; Translations: [Other intervertebral disc degeneration, lumbar region]Onset: 99-81-0488Zticcrj Spondylosis; intervertebral disc disorders; other back problems (20 sources)Chronic low back pain; Translations: [Acute exacerbation of chronic low back pain]Onset: 126865-36-6050NnotcfsuMiiijzhchmd injury; contusion (20 sources)Abrasion, left knee, initial encounter; Translations: [Abrasion of left upper arm, initial encounter]Onset: 24-46-6196VudbexxaBpheuma disorders (20 sources)Hypothyroidism; Translations: [Hypothyroidism, unspecified]Onset: 01-19-2021 Resolved: 89-69-2626WrursnePaxdkpejobck (3 sources)LOW BACK PAIN, UNSPECIFIED; Translations: [LOW BACK PAIN, UNSPECIFIED]Onset: 68-18-8906Ahwtupfzrqms (1 source)Patient encounter azsemm01-62-8439Msjuixdbpfwl (1 source)Longstanding persistent atrial fibrillation; Translations: [Longstanding persistent atrial fibrillation]Onset: 66-16-1916Soqktbqmarpa (12 sources)A [facility] screening has identified you as FRAIL [...] Four Ways to Beat the Frailty Risk [email or web address]-gljwys-[email or web address]- osqb-or-miyd-the-fra mmxt-gurf38-50tbwu97-88-0932Rlonggniltav (3 sources)Chronic atrial fibrillation, unspecified; Translations: [Chronic atrial fibrillation, unspecified (Multi)]Onset: 33-63-0737Cmwuedlrtwov (14 sources)For a brain CT. This must be done prior to the appointment with Dr. Stovall.Unclassified (7 sources)Please call to schedule follow up appointment following discharge from assisted facility.Unclassified (7 sources)Please have the Brain CT done 1 day prior to this appointment. This appointment is scheduled with Dr. Stovall's Nurse Practitioner.Unclassified (2 sources)Please call to schedule an appointment for right heel stage 3 pressure injury.Varicose veins of lower extremity (20 sources)Varicose veins of lower extremity; Translations: [Varicose veins of left lower extremity with othercomplications]21-11-8037HdbmbtfqAqkap infection (20 sources)Disease caused by 2019-nCoV; Translations: [COVID-19]03-10-2024 Episodic Past or Other Problems Problem ClassificationProblemDateDocumented DateEpisodic/ChronicAcute and unspecified renal failure (20 sources)Acute renal failure syndrome; Translations: [Acute kidney failure, unspecified]Onset: 864977-73-0892FjpmwycaIhxahjmbm infection; unspecified site (20 sources)Bacteremia; Translations: [Bacteremia due to Pseudomonas]Onset: 395636-17-1840IjrlsjigUkitgzbdojmfi of surgical procedures or medical care (1 source)Disruption of external operation (surgical) wound, 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, initial encounter; Translations: [Disruption of external operation (surgical) wound, 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, initial encounter]Onset: 06-06-2024 EpisodicGenitourinary symptoms and ill-defined conditions (20 sources)Retention of urine; Translations: [Retention of urine, unspecified] Onset: 567873-84-9531WexxfodyVwzrz aftercare (2 sources)longterm (current) use of anticoagulants; Translations: [longterm (current) use of anticoagulants]Onset: 04-47-8318XgpquwtkBbqma aftercare (1 source)Encounter for other orthopedic aftercare; Translations: [Encounter for other orthopedic aftercare]Onset: 99-03-9604CdxovlwgHvvkh connective tissue disease (5 sources)Muscle wasting and atrophy, 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, unspecified site; Translations: [MUSCLE WASTING ATROPHY NEC UNS SITE]Onset: 08-17-2021 EpisodicOther lower respiratory disease (7 sources)Hypoxemia; Translations: [Hypoxemia]Onset: 433933-97-2319 EpisodicScreening and history of mental health and substance abuse codes (20 sources)Ex-smoker; Translations: [Personal history of tobacco use]Onset: 850920-80-5149EcgyrvytYpmkonz on above:Quit smoking in 1979;Septicemia (except in labor) (20 sources)Sepsis; Translations: [Sepsis, unspecified organism]Onset: 738643-64-7658YsecxfxwTifm and subcutaneous tissue infections (20 sources)Cellulitis, unspecified; Translations: [Cellulitis]Onset: 07-12-2024 25-85-0199JtzodlbhVogrsfpippij (1 source)LOW BACK PAIN, UNSPECIFIED; Translations: [LOW BACK PAIN, UNSPECIFIED] Onset: 11-61-9326Gfsjnfuojnuq (1 source)Cough, unspecified type R05.9Unclassified (2 sources)Onset: 731399-49-2367Munlevw tract infections (20 sources)Urinary tract infection, site not specified; Translations: [Urinary tract infectious disease]Onset: 51-70-6680Evtafvbr Results Test NameValueInterpretationReference RangeFacilityBasophils Auto (Bld) [#/Vol] Ordered By: Sha Pepe on 94-58-6506Hhdgmmuie (Bld) [#/Vol]0.1 10 3/uL0.0-0.1 [facility] HospitalBasophils/100 WBC Auto (Bld)Ordered By: Sha Pepe on 27-47-4043Jvfvqdekc/100 WBC (Bld)0.8 %0.2-2.0[facility] HospitalEosinophils/100 WBC Auto (Bld)Ordered By: Sha Pepe on 95-78-9421Bmuknehidyx/100 WBC (Bld)2.7 %0.9-7.0[facility] Erythrocyte distribution width Auto (RBC) [Ratio]Ordered By: Sha Pepe on 75-81-9380Pstvdvskanz distribution width (RBC) [Ratio]16.9 %High11.0-15.0 [facility] HospitalGlobulin Calc (S) [Mass/Vol]Ordered By: Sha Pepe on 57-77-7776Oxirxbuc (S) [Mass/Vol]3.7 g/dLOhiohealth O'Bleness HospitalGlomerular filtration rate (GFR) estimation in non- AmericanOrdered By: Sha Pepe on 31-40-3469SAU/1.73 sq M.predicted among non-blacks MDRD (S/P/Bld) [Vol rate/Area]28 mL/min/{1.73_m2}Low>=60 mL/min/1.73m 2FMartin Memorial HospitalHematocrit Auto (Bld) [Volume fraction]Ordered By: Sha Pepe on 48-19-4237Oxnliazwrk (Bld) [Volume fraction]26.0 %Low42.0-54.0 [facility] HospitalHemoglobin [Mass/volume] in BloodOrdered By: Sha Pepe on 37-81-6080Vcgzpkuese (Bld) [Mass/Vol]8.3 g/dLLow14.0-18.0 [facility] HospitalIron binding capacity [Mass/volume] in Serum or PlasmaOrdered By: Sha Pepe on 99-42-1433Llzd binding capacity [Mass/Vol] 177.0 ug/vPSzn477.0-450.0[facility] HospitalIron saturation [Mass Fraction] in Serum or PlasmaOrdered By: Sha Pepe on 22-83-5262Rsfl saturation [Mass fraction]6.8 %[facility] HospitalLeukocytes [#/volume] corrected for nucleated erythrocytes in Blood by Automated coun Ordered By: Sha Pepe on 28-63-2637YQC corrected for nucl RBC Auto (Bld) [#/Vol]7.1 10 3/uL4.0-11.0[facility] HospitalLymphocytes Auto (Bld) [#/Vol]Ordered By: Sha Pepe on 64-59-6594Zeqckjekmab (Bld) [#/Vol]1.0 10 3/uLLow1.2-3.8[facility] HospitalLymphocytes/100 WBC Auto (Bld)Ordered By: Sha Pepe on 37-58-1502Nzxkdjmuugm/100 WBC (Bld)14.0 %Low 20.5-60.0[facility] MemorialH Auto (RBC) [Entitic mass]Ordered By: Sha Pepe on 99-95-4503VCK (RBC) [Entitic mass]28.3 pg25.9-34.0[facility] HospitalMCHC Auto (RBC) [Mass/Vol]Ordered By: Sha Pepe on 84-05-3103QAHI (RBC) [Mass/Vol]31.7 g/dL29.9-35.2FMartin Memorial HospitalMCV Auto (RBC) [Entitic vol]Ordered By: Sha Pepe on 29-75-3477TMH (RBC) [Entitic vol]89.3 fL80.0-94.0[facility] HospitalMonocytes Auto (Bld) [#/Vol]Ordered By: Sha Pepe on 48-52-4886Ynrltzvck (Bld) [#/Vol] 0.5 10 3/uL0.3-0.8[facility] HospitalMonocytes/100 WBC Auto (Bld) Ordered By: Sha Pepe on 21-73-9513Zocwhmssh/100 WBC (Bld)6.8 %1.7-12.0 [facility] HospitalNeutrophils Auto (Bld) [#/Vol]Ordered By: Sha Pepe on 60-03-7276Xxadxfqzcne (Bld) [#/Vol]5.3 10 3/uL1.4-6.5FMartin Memorial HospitalNeutrophils/100 WBC Auto (Bld)Ordered By: Sha Pepe on 22-75-5579Jmlteerfcse/100 WBC (Bld)75.6 %High43.0-75.0[facility] HospitalNo Panel InformationOrdered By: Sha Pepe on 86-54-475503.1 [facility]41.0 mg/dLHigh7.0-18.0[facility]8.6 mg/dL8.5-10.1FMartin Memorial Hospital108 mmol/LHigh 98-107[facility]25.0 mmol/L21.0-32.0[facility]2.26 mg/dLHigh0.70-1.30[facility]34Low>=60 mL/min/1.73m 2FMartin Memorial Hospital107 mg/gRFamz00-842PhtcjokmcOhiohealth O'Bleness Hospital4.1 mmol/L3.5-5.1FMartin Memorial Hospital141 mmol/I236-263FncbgpivgOhiohealth O'Bleness Hospital9.00 ng/mL8.60-58.90[facility]293.0 ng/mL26.0-388.0[facility] 10.864 u[iU]/mLHigh0.358-3.740[facility]2.4 mg/dL1.8-2.4 [facility]12.0 ug/dLLow65.0-175.0[facility]2.4 g/dLLow3.4-5.0[facility]0.2 10 3/uL 0.0-0.7FMartin Memorial Hospital96 U/N75-592SkdsdaqycOhiohealth O'Bleness Hospital16 U/Y95-77GhhhrmsyhOhiohealth O'Bleness Hospital17 U/T78-81LdclttfbiOhiohealth O'Bleness Hospital0.01 10 3/uL0.00-0.03[facility]0.1 %0.0-0.5 [facility]0.5 mg/dL0.2-1.0[facility]6.1 g/dLLow6.4-8.2FMartin Memorial HospitalPlatelet mean volume Auto (Bld) [Entitic vol]Ordered By: Sha Pepe on 59-27-1012Cenzbvih mean volume (Bld) [Entitic vol]9.7 fL9.5-13.5FMartin Memorial Hospital Platelets Auto (Bld) [#/Vol]Ordered By: Sha Pepe on 26-36-3839Hirtizeac (Bld) [#/Vol]216 10 3/rI275-261IugbbvoymOhiohealth O'Bleness HospitalRBC Auto (Bld) [#/Vol]Ordered By: Sha Pepe on 28-48-6650TPD (Bld) [#/Vol]2.72 10 6/uLLow 4.70-6.10[facility] Hospitalerum or plasma albumin/globulin mass ratioOrdered By: Sha Pepe on 24-16-9145Advvpvd/Globulin [Mass ratio]0.6 {ratio}[facility] Hospitalerum or plasma anion gap determination Ordered By: Sha Pepe on 16-01-6445Atfmu gap [Moles/Vol]12.1 mmol/LFMartin Memorial HospitalBasophils Auto (Bld) [#/Vol]Ordered By: Clarence Schroeder on 43-32-0040Xusmzmmwl (Bld) [#/Vol]0.1 10 3/uL0.0-0.1FMartin Memorial HospitalBasophils/100 WBC Auto (Bld)Ordered By: Clarence Schroeder on 12-30-2024 Basophils/100 WBC (Bld)0.6 %0.2-2.0[facility] Eosinophils/100 WBC Auto (Bld)Ordered By: Clarence Schroeder on 12-30-2024 Eosinophils/100 WBC (Bld)1.9 %0.9-7.0[facility] Erythrocyte distribution width Auto (RBC) [Ratio]Ordered By: Clarence Schroeder on 40-60-5281Qsuslldfwos distribution width (RBC) [Ratio]16.9 %High11.0-15.0 [facility] HospitalGlomerular filtration rate (GFR) estimation in non- AmericanOrdered By: Clarence Schroeder on 99-75-0556OUX/1.73 sq M.predicted among non-blacks MDRD (S/P/Bld) [Vol rate/Area]23 mL/min/{1.73_m2}Low>=60 mL/min/1.73m 2FMartin Memorial HospitalHematocrit Auto (Bld) [Volume fraction]Ordered By: Clarence Schroeder on 92-13-8793Fuvqzqchiq (Bld) [Volume fraction] 24.0 %Low42.0-54.0[facility] HospitalHemoglobin [Mass/volume] in BloodOrdered By: Clarence Schroeder on 43-58-7036Xtvkxxbcno (Bld) [Mass/Vol]7.6 g/dLLow 14.0-18.0[facility] HospitalLeukocytes [#/volume] corrected for nucleated erythrocytes in Blood by Automated counOrdered By: Clarence Schroeder on 63-01-0372JEA corrected for nucl RBC Auto (Bld) [#/Vol]11.9 10 3/uLHigh4.0-11.0 [facility] HospitalLymphocytes Auto (Bld) [#/Vol]Ordered By: Clarence Schroeder on 53-43-4753Nuxnaqqdvaa (Bld) [#/Vol]1.2 10 3/uL1.2-3.8[facility] HospitalLymphocytes/100 WBC Auto (Bld)Ordered By: Clarence Schroeder on 81-97-9352Nuaxhuvqpgd/100 WBC (Bld)10.4 %Low20.5-60.0[facility] HospitalMCH Auto (RBC) [Entitic mass]Ordered By: Clarence Schroeder on 12-63-3127QYT (RBC) [Entitic mass]28.8 pg25.9-34.0[facility] HospitalMCHC Auto (RBC) [Mass/Vol]Ordered By: Clarence Schroeder on 96-17-7200IDVN (RBC) [Mass/Vol]31.7 g/dL29.9-35.2FMartin Memorial HospitalMCV Auto (RBC) [Entitic vol] Ordered By: Clarence Schroeder on 10-91-8254BXW (RBC) [Entitic vol]90.9 fL80.0-94.0 [facility] HospitalMonocytes Auto (Bld) [#/Vol]Ordered By: Clarence Schroeder on 43-30-7625Zhigrgfdk (Bld) [#/Vol]0.8 10 3/uL0.3-0.8[facility] HospitalMonocytes/100 WBC Auto (Bld)Ordered By: Clarence Schroeder on 12-30-2024 Monocytes/100 WBC (Bld)6.9 %1.7-12.0[facility] HospitalNeutrophils Auto (Bld) [#/Vol]Ordered By: Clarence Schroeder on 45-86-7573Qdzjteihowp (Bld) [#/Vol]9.5 10 3/uLHigh1.4-6.5FMartin Memorial HospitalNeutrophils/100 WBC Auto (Bld)Ordered By: Clarence Newsometon on 95-15-4262Yxnsinntsdf/100 WBC (Bld)79.9 %High43.0-75.0[facility] HospitalNo Panel InformationOrdered By: Clarence Alexandre on 84-30-6330ZBQ-[facility] HospitalNONE SEEN #/LPFNONE/RAREOhiohealth O'Bleness HospitalNone Seen #/HPFNone [facility] HospitalMALL #/HPFAbnormalVALLEY HOSPITALE [facility] FoundationNegativeNEG/TRACEHighland District HospitalMALLAbnormalNEGATIVE [facility] HospitalCLEARCLEAROhiohealth O'Bleness HospitalLT. YELLOWYELLOWOhiohealth O'Bleness HospitalMODERATEAbnormalNEGATIVEOhiohealth O'Bleness HospitalNONE SEENPremier Health Upper [facility] PositiveAbnormalNEGATIVEOhiohealth O'Bleness Hospital6.05.0-9.0[facility]2-5 #/HPFAbnormal0-2FMartin Memorial Hospital <=1.154Olbcbbnu3.005-1.025[facility]0.2 EU/dL0.2-1.0 [facility]5-10 #/HPFAbnormalNONE [facility]1.5 mmol/L0.4-2.0[facility]122.3 pg/mL Critically high4.0-76.1FMartin Memorial Hospital4924.0 pg/mLCritically high<=1800.0[facility]16.5FMartin Memorial Hospital44.0 mg/dLHigh7.0-18.0[facility]0.2 10 3/uL0.0-0.7 [facility]9.5 mg/dL8.5-10.1FMartin Memorial Hospital97 mmol/NFze28-848KsdlcqfqrOhiohealth O'Bleness Hospital24.2 mmol/L21.0-32.0 [facility]2.66 mg/dLHigh0.70-1.30[facility]0.04 10 3/uLHigh0.00-0.03[facility]28Low >=60 mL/min/1.73m 2FMartin Memorial Hospital0.3 %0.0-0.5FMartin Memorial Hospital100 mg/zO14-845WlyipdvftOhiohealth O'Bleness Hospital4.7 mmol/L3.5-5.1FMartin Memorial Hospital131 mmol/NVrj087-140EfsqefwusOhiohealth O'Bleness HospitalPlatelet mean volume Auto (Bld) [Entitic vol]Ordered By: Clarence Schroeder on 67-70-2556Cujlbehd mean volume (Bld) [Entitic vol]9.5 fL9.5-13.5 [facility] HospitalPlatelets Auto (Bld) [#/Vol]Ordered By: Clarence Schroeder on 57-61-8273Ltfxkxuhi (Bld) [#/Vol]294 10 3/oK233-375GlxfccbyeOhiohealth O'Bleness HospitalRBC Auto (Bld) [#/Vol]Ordered By: Clarence Schroeder on 07-02-0724BDR (Bld) [#/Vol]2.64 10 6/uLLow4.70-6.10[facility] Hospitalerum or plasma anion gap determinationOrdered By: Clarence Schroeder on 84-89-3492Wshob gap [Moles/Vol]14.5 mmol/LFMartin Memorial HospitalUrine Cultureon 66-37-1944Xnvttrfb identified Cx Nom (U)NormalThe [facility]ly [facility] Comment on above:Performed By: #### CUU ####[facility] [id number] [place] [address] USAYeast detection in urine sediment by light microscopyOrdered By: Clarence Schroeder on 12-91-3120Dthbj LM Ql (Urine sed)SEEN AbnormalNONE SEENOhiohealth O'Bleness HospitalBasophils Auto (Bld) [#/Vol] Ordered By: Cristy Prince ([place]) on 78-17-3373Nqeadobwq (Bld) [#/Vol]0.1 10 3/uL0.0-0.1FMartin Memorial HospitalBasophils/100 WBC Auto (Bld)Ordered By: (Maki) Cristyvanita Livingstonon on 64-39-9108Jahzgzwrc/100 WBC (Bld)0.9 %0.2-2.0 [facility] HospitalEosinophils/100 WBC Auto (Bld)Ordered By: (Maki) Cristyvanita Prince on 74-37-0203Avznzrimixi/100 WBC (Bld)2.8 %0.9-7.0 [facility] HospitalErythrocyte distribution width Auto (RBC) [Ratio]Ordered By: (Maki) Cristy Niki on 38-31-6305Kyzgzbetbad distribution width (RBC) [Ratio]16.9 %High11.0-15.0[facility] HospitalGlobulin Calc (S) [Mass/Vol]Ordered By: (Maki) Cristy Niki on 34-69-7143Fspcmbfw (S) [Mass/Vol]4.2 g/dLOhiohealth O'Bleness HospitalGlomerular filtration rate (GFR) estimation in non- AmericanOrdered By: (Maki) Cristyvanita Livingstonon on 00-40-0972JFM/1.73 sq M.predicted among non-blacks MDRD (S/P/Bld) [Vol rate/Area]51 mL/min/{1.73_m2}Low>=60 mL/min/1.73m 2FMartin Memorial HospitalHematocrit Auto (Bld) [Volume fraction]Ordered By: (Maki) Cristy Niki on 07-61-1565Kolakrlabp (Bld) [Volume fraction]27.1 %Low42.0-54.0[facility] HospitalHemoglobin [Mass/volume] in BloodOrdered By: (Maki) Cristy Niki on 91-21-1471Xzhyhxpake (Bld) [Mass/Vol]8.7 g/dLLow14.0-18.0 [facility] HospitalLaboratory - Chemistry and Chemistry - challengeOrdered By: (Maki) Cristy Niki on 36-69-7485Klpaylyrm Ql (U) NegativeNEGATIVEOhiohealth O'Bleness HospitalGlucose (U) [Mass/Vol]Negative NEGATIVEOhiohealth O'Bleness HospitalKetones Ql (U)NegativeNEGATIVEOhiohealth O'Bleness HospitalpH (U)5.5 [pH]5.0-9.0[facility] Specific gravity (U) [Rel density]<=1.534Zuckwfdf1.005-1.025[facility] HospitalUrobilinogen Qn (U)0.2 {Raghu'U}/dL0.2-1.0[facility] HospitalAlbumin [Mass/Vol]2.7 g/dLLow3.4-5.0[facility] HospitalALP [Catalytic activity/Vol]143 U/TPtjw46-893SsowqvgvkOhiohealth O'Bleness HospitalALT [Catalytic activity/Vol]30 U/U64-84ThkctnvfeOhiohealth O'Bleness Hospital AST [Catalytic activity/Vol]42 U/QEbqh99-16BysdjjrgpOhiohealth O'Bleness Hospital Bilirubin [Mass/Vol]0.5 mg/dL0.2-1.0[facility] HospitalCalcium [Mass/Vol]8.9 mg/dL8.5-10.1FMartin Memorial HospitalChloride [Moles/Vol] 97 mmol/YPst77-555EcsaapbmqOhiohealth O'Bleness HospitalCO2 [Moles/Vol]24.8 mmol/L 21.0-32.0[facility] HospitalCreatinine [Mass/Vol]1.33 mg/dLHigh 0.70-1.30[facility] HospitalGFR/1.73 sq M.predicted MDRD (S/P/Bld) [Vol rate/Area]mL/min/{1.73_m2}>=60 mL/min/1.73m 2FMartin Memorial HospitalGlucose [Mass/Vol]92 mg/lR16-118RwvevstzwOhiohealth O'Bleness HospitalPotassium [Moles/Vol]5.1 mmol/L3.5-5.1FMartin Memorial HospitalProtein [Mass/Vol] 6.9 g/dL6.4-8.2FUC West Chester Hospitalodium [Moles/Vol]131 mmol/LLow 136-145[facility] HospitalUrea nitrogen [Mass/Vol]24.0 mg/dLHigh 7.0-18.0[facility] HospitalUrea nitrogen/Creatinine [Mass ratio] 18.0 mg/mgOhiohealth O'Bleness HospitalLaboratory - Hematology and Cell countsOrdered By: Cristy Prince ([place]) on 32-37-3062Rwqmbnqk granulocytes/100 WBC (Bld)0.5 %0.0-0.5FMartin Memorial HospitalLaboratory - Specimen informationOrdered By: Cristy Prince ([place]) on 23-22-8311Zmmnqczdbp (U)SL CLOUDYCLEARFMartin Memorial HospitalColor (U)LT. YELLOWYELLOWOhiohealth O'Bleness HospitalLaboratory - UrinalysisOrdered By: (Glynn) Cristy Prince on 14-74-0517Vzguvtfja esterase Test strip Ql (U)SMALLAbnormalNEGATIVEOhiohealth O'Bleness HospitalMucus Ql (Urine sed)NONE SEENNONE SEENOhiohealth O'Bleness HospitalNitrite Ql (U)NegativeNEGATIVEOhiohealth O'Bleness Hospital Protein Ql (U)NegativeNEG/TRACEOhiohealth O'Bleness HospitalLeukocytes [#/volume] corrected for nucleated erythrocytes in Blood by Automated coun Ordered By: (Glynn) Cristy Prince on 49-06-9222SHK corrected for nucl RBC Auto (Bld) [#/Vol]8.1 10 3/uL4.0-11.0[facility] HospitalLymphocytes Auto (Bld) [#/Vol]Ordered By: (Glynn) Cristy Prince on 02-95-3686Jksgnamqylp (Bld) [#/Vol]1.2 10 3/uL1.2-3.8[facility] HospitalLymphocytes/100 WBC Auto (Bld)Ordered By: (Glynn) Cristy Prince on 10-46-1408Faucstlqxlg/100 WBC (Bld)14.4 %Low20.5-60.0[facility] Auto (RBC) [Entitic mass]Ordered By: (Glynn) Cristy Prince on 98-37-1597KRA (RBC) [Entitic mass]28.9 pg25.9-34.0[facility] Auto (RBC) [Mass/Vol]Ordered By: (Monisha Prince on 92-95-4041EIZA (RBC) [Mass/Vol] 32.1 g/dL29.9-35.2FMartin Memorial HospitalMCV Auto (RBC) [Entitic vol] Ordered By: (Glynn) Cristy Prince on 45-74-8877CDB (RBC) [Entitic vol]90.0 fL 80.0-94.0[facility] HospitalMonocytes Auto (Bld) [#/Vol]Ordered By: (Glynn) Cristy Prince on 88-26-5872Xagbahhji (Bld) [#/Vol]0.7 10 3/uL 0.3-0.8[facility] HospitalMonocytes/100 WBC Auto (Bld)Ordered By: Cristy Prince ([place]) on 23-45-5306Fzplrzvly/100 WBC (Bld)8.6 %1.7-12.0 [facility] HospitalNeutrophils Auto (Bld) [#/Vol]Ordered By: (Glynn) Cristy Prince on 29-15-4281Xijudecxxny (Bld) [#/Vol]5.9 10 3/uL1.4-6.5 [facility] HospitalNeutrophils/100 WBC Auto (Bld)Ordered By: Cristy Prince ([place]) on 41-91-7333Effrrfsssua/100 WBC (Bld)72.8 %43.0-75.0 [facility] HospitalNo Panel InformationOrdered By: Cristy Prince ([place]) on 70-88-8272Scscu BacteriaSMALL #/HPFAbnormalNONE SEENOhiohealth O'Bleness HospitalUrine Culture ReflexedYE-[facility] HospitalUrine Microscopic ReviewYEUniversity Hospitals Parma Medical CenterUrine Occult BloodNegativeNEGATIVEOhiohealth O'Bleness HospitalUrine Other CastsNONE SEEN #/LPFNONE SEENOhiohealth O'Bleness HospitalUrine Other CrystalsNone Seen #/HPFNone [facility] HospitalUrine RBC0-2 #/HPF0-2FMartin Memorial HospitalUrine Squamous Epithelial CellsNONE SEEN #/LPFNONE/RARE [facility]ess HospitalUrine EGM08-80 #/HPFAbnormalNONE SEENOhiohealth O'Bleness HospitalYES-FRMCOhiohealth O'Bleness HospitalYESOhiohealth O'Bleness HospitalNONE SEEN #/LPFNONE/RAREOhiohealth O'Bleness Hospital NegativeNEG/TRACEOhiohealth O'Bleness HospitalNone Seen #/HPFNone Seen [facility] HospitalMALL #/HPFAbnormalNONE SEENHighland District HospitalL CLOUDYCLEARFMartin Memorial HospitalNONE SEENNONE SEEN [facility] HospitalLT. YELLOWYELLOWOhiohealth O'Bleness Hospital0-2 #/HPF0-2FMartin Memorial Hospital10-20 #/HPFAbnormalNONE SEEN [facility] HospitalMALLAbnormalNEGATIVEOhiohealth O'Bleness Hospital5.55.0-9.0[facility]<=1.153Svvpghqa3.005-1.025 [facility]0.2 EU/dL0.2-1.0[facility] HospitalEosinophils # (Auto)0.2 10 3/uL0.0-0.7FMartin Memorial Hospital Immature Granulocyte # (Auto)0.04 10 3/uLHigh0.00-0.03[facility] HospitalTroponin I High Fsxqmdwglpn203.3 pg/mLCritically high4.0-76.1FMartin Memorial HospitalComment on above:RESULTS CALLED TO YARIEL Prince, OUTREACH DIRECTOR @BY Holland Noel, [facility] 2156CUT-OFF POINTS HAVE BEEN ESTABLISHED BASED ON THE FOURTHUNIVERSAL DEFINITION OF MYOCARDIAL INFARCTION. THE UPPERREFERENCE LIMIT (URL) OF TROPONIN, DEFINED THE 99THPERCENTILE OF cTnI DISTRIBUTION IN A REFERENCE POPULATION,HAS BEEN CONFIRMED THE DECISION THRESHOLD FOR MIDIAGNOSIS.99TH PERCENTILE = 76.2 PG/MLNOTE: HIGH-SENSITIVITY TROPONIN ASSAY IS NOT INTENDED TO BEUSED IN ISOLATION BUT SHOULD BE INTERPRETED IN CONJUNCTIONWITHOTHER DIAGNOSTIC AND CLINICAL INFORMATION.131.3 pg/mLCritically high4.0-76.1FMartin Memorial Hospital2.7 g/dLLow3.4-5.0[facility]0.2 10 3/uL0.0-0.7FMartin Memorial Hospital143 U/FGacg99-319DowimnxfeOhiohealth O'Bleness Hospital30 U/D29-79ScfpdtxdrOhiohealth O'Bleness Hospital42 U/MZjmj04-94ZtaootpeyOhiohealth O'Bleness Hospital18.0[facility]0.04 10 3/uLHigh0.00-0.03[facility]24.0 mg/dLHigh7.0-18.0[facility]0.5 %0.0-0.5 [facility]8.9 mg/dL8.5-10.1FMartin Memorial Hospital97 mmol/GYvv72-177OdkivsdjoOhiohealth O'Bleness Hospital24.8 mmol/L21.0-32.0 [facility]1.33 mg/dLHigh0.70-1.30[facility]>60>=60 mL/min/1.73m 2FMartin Memorial Hospital92 mg/dL 74-106[facility]5.1 mmol/L3.5-5.1FMartin Memorial Hospital131 mmol/OPon293-759PbubbgjrhOhiohealth O'Bleness Hospital0.5 mg/dL 0.2-1.0[facility]6.9 g/dL6.4-8.2FMartin Memorial HospitalPlatelet mean volume Auto (Bld) [Entitic vol]Ordered By: Cristy Prince ([place]) on 74-49-4960Seobmejk mean volume (Bld) [Entitic vol]10.6 fL 9.5-13.5FMartin Memorial HospitalPlatelets Auto (Bld) [#/Vol]Ordered By: Cristy Prince ([place]) on 13-56-0348Fzjgsffey (Bld) [#/Vol]244 10 3/hR454-787 [facility]leness HospitalRBC Auto (Bld) [#/Vol]Ordered By: Cristy Prince ([place]) on 51-21-4263QDV (Bld) [#/Vol]3.01 10 6/uLLow4.70-6.10[facility] Hospitalerum or plasma albumin/globulin mass ratioOrdered By: Cristy Prince ([place]) on 61-59-9838Txvhzzk/Globulin [Mass ratio]0.6 {ratio} [facility] CenterSerum or plasma anion gap determinationOrdered By: ([place]) Cristy Prince on 54-81-0910Ueguh gap [Moles/Vol]14.3 mmol/L [facility]len[facility] HospitalUrine Cultureon 99-40-0306Vuuqioop identified Cx Nom (U)ORGANISM: Bibiana albicans (O:CANALB) Aurora Count >100,000 PERFORMED BY: [facility] [address] [place] [address] PATHOLOGIST [employer] SALES REPRESENTATIVE MARY SONI M.D.NormalThe Formerly Park [facility] Health Physician GroupComment on above: Performed By: #### CUU ####[address] [address] USAUrine cultureOrdered By: Liliana Miller on 83-64-0949Puklekwd identified Cx Nom (U)Bibiana albicansAbMercy Health St. Anne HospitalYeast detection in urine sediment by light microscopy Ordered By: (Monisha Muniz Niki on 87-53-6987Hcevu LM Ql (Urine sed)SEEN AbnormalNONE [facility] FoundationComment on above:Many budding yeastModerate HyphaeBasophils [#/volume] in Blood by Automated countOrdered By: Michele Knight on 72-63-5401Nptkaygjd (Bld) [#/Vol]0.0 10*3/uLNormal0.0-0.2 [facility]len[facility] HospitalComment on above:Result Comment: PERFORMED BY:[address] [place], [place] [phone] MEDICAL DIRECTORMARY SONI M.D.Performed By: #### CBC ####[address] [address] [place] Basophils/100 leukocytes in Blood by Automated countOrdered By: Michele Knight on 05-20-6868Hvptaxiqx/100 WBC (Bld)0.7 %Normal.[facility] Comment on above:Performed By: #### CBC ####[address] [address] USAComplete Blood Count Auto Diffon 12-18-2024 Mean Corpuscular HGB Conc32.6 g/nSEmlbsw05.5-35.6The [facility] Comment on above:Performed By: #### CBC ####[address] USANRBC%0.0 /100{WBC}Normal0-0.5The [facility] Physician GroupComment on above:Performed By: #### CBC ####[place] USAWhite Blood Count3.6 [CFU]/mL Low4.1-10.5The [facility] Physician GroupComment on above:Performed By: #### CBC ####[place] [address] [place] Eosinophils [#/volume] in Blood by Automated countOrdered By: Michele Eugene on 82-59-0532Ejjyhbtnpjd (Bld) [#/Vol]0.2 10*3/uLNormal0.0-0.45[facility] HospitalComment on above:Performed By: #### CBC ####[place] USAEosinophils/100 leukocytes in Blood by Automated countOrdered By: Michele Eugene on 62-80-1498Veylkdvegef/100 WBC (Bld)6.5 %Normal.[facility] HospitalComment on above:Performed By: #### CBC ####[place] [address] USAErythrocyte distribution width [Ratio] by Automated countOrdered By: Michele Knight on 57-84-8557Kryeogbvgbs distribution width (RBC) [Ratio]18.1 %High 12.0-14.8[facility]leness HospitalComment on above:Performed By: #### CBC ####[place] [place] Erythrocytes [#/volume] in Blood by Automated countOrdered By: Michele Knight on 37-66-3361PTB (Bld) [#/Vol]3.00 10*6/uLLow3.90-5.60[facility] HospitalComment on above:Performed By: #### CBC ####[place] USAHematocrit [Volume Fraction] of Blood by Automated countOrdered By: Michele Knight on 35-46-3596Kfrzapnykd (Bld) [Volume fraction]26.3 %Low38.8-50.0[facility]leness HospitalComment on above: Performed By: #### CBC ####[address] [place] USAHemoglobin [Mass/volume] in BloodOrdered By: Michele Knight on 30-41-9085Byoxvwjsmg (Bld) [Mass/Vol]8.6 g/dLLow13.0-17.0[facility] HospitalComment on above:Performed By: #### CBC ####[address] USALeukocytes [#/volume] corrected for nucleated erythrocytes in Blood by Automated counOrdered By: Michele Knight on 71-82-4420IOO corrected for nucl RBC Auto (Bld) [#/Vol]3.6 10*3/uLLow4.1-10.5FMartin Memorial HospitalLeukocytes [#/volume] in Blood by Automated countOrdered By: Michele Knight on 14-60-6373ETV (Bld) [#/Vol] 3.6 10*3/uLLow4.1-10.5FMartin Memorial HospitalComment on above: Performed By: #### CBC ####[place] [address] USALymphocytes [#/volume] in Blood by Automated count Ordered By: Michele Knight on 20-63-3001Stanguituxs (Bld) [#/Vol]0.7 10*3/uLLow 1.00-4.8[facility] HospitalComment on above:Performed By: #### CBC ####[place] [address] [place] Lymphocytes/100 leukocytes in Blood by Automated countOrdered By: Michele Knight on 06-69-7208Ssvquwfxras/100 WBC (Bld)18.6 %Normal.[facility]leness HospitalComment on above:Performed By: #### CBC ####[place] [address] [facility]ENTERMCH [Entitic mass] by Automated count Ordered By: Michele Knight on 98-00-7712SCT (RBC) [Entitic mass]28.6 pgNormal 27.5-35.2FMartin Memorial HospitalComment on above:Performed By: #### CBC ####[address] MCHC Auto (RBC) [Mass/Vol]Ordered By: Michele Knight on 32-09-6845QKTR (RBC) [Mass/Vol]32.6 g/dL32.5-35.6FMartin Memorial HospitalMCV [Entitic volume] by Automated countOrdered By: Michele Knight on 53-02-7316DGN (RBC) [Entitic vol]87.8 gWTuvhmn67.5-101Ohio[facility]len[facility] HospitalComment on above:Performed By: #### CBC ####[place] [address] USAMonocytes [#/volume] in Blood by Automated count Ordered By: Michele Knight on 08-84-7571Kmfirpwoi (Bld) [#/Vol]0.3 10*3/uLNormal 0.0-0.8[facility] HospitalComment on above:Performed By: #### CBC ####[place] [address] [place] Monocytes/100 leukocytes in Blood by Automated countOrdered By: Michele Knight on 99-34-7334Fjdvigtlr/100 WBC (Bld)8.6 %Normal.[facility] Comment on above:Performed By: #### CBC ####[place] [address] USANeutrophils [#/volume] in Blood by Automated countOrdered By: Michele Knight on 77-96-7571Icjukguiwsf (Bld) [#/Vol]2.4 10*3/uL Normal1.8-7.7FMartin Memorial HospitalComment on above:Performed By: #### CBC ####[address] [address] USANeutrophils/100 leukocytes in Blood by Automated countOrdered By: Michele Knight on 08-94-0005Fbvazxljgzz/100 WBC (Bld)65.6 %Normal.[facility]len[facility] HospitalComment on above:Performed By: #### CBC ####[address] [address] USANucleated erythrocytes [Presence] in Blood by Automated countOrdered By: Michele Knight on 12-18-2024 Nucleated RBC Auto Ql (Bld)0.0 /100{WBC}0-0.5FMartin Memorial Hospital Platelet mean volume [Entitic volume] in Blood by Automated countOrdered By: Michele Knight on 33-51-5252Pnebvjkd mean volume (Bld) [Entitic vol]7.4 fLNormal 6.6-10.1FMartin Memorial HospitalComment on above:Performed By: #### CBC ####[address] [address] [place] Platelets [#/volume] in Blood by Automated countOrdered By: Michele Knight on 24-52-8751Lhwlrpmbc (Bld) [#/Vol]262 10*3/iACvbcwv295-581PdzvwfvokOhiohealth O'Bleness HospitalComment on above:Performed By: #### CBC ####[address] [address] USABasic Metabolic Panelon 89-22-3181Clopsmjnui Clr Calc Jzkcazts52.08[facility] Comment on above:Result Comment: PERFORMED BY:[address] [place], [place] [phone] MEDICAL DIRECTORMARY SONI M.D.Performed By: #### BMP, CBC ####[address] [address] USAGFR/1.73 sq M.predicted MDRD (S/P/Bld) [Vol rate/Area]mL/min/{1.73_m2}NormalThe [facility]ly [facility] Comment on above:Performed By: #### BMP, CBC ####[address] [address] USACalcium [Mass/volume] in Serum or PlasmaOrdered By: Akash Mccartney on 46-22-3125Ctbcpip [Mass/Vol]8.4 mg/dL Low8.6-10.3FMartin Memorial HospitalComment on above:Performed By: #### BMP, CBC ####[address] [address] USACapillary blood glucose measurement by glucometer (mass/volume)Ordered By: Akash Mccartney on 73-14-6516Aywdvrt [Mass/Vol]108 mg/dLNormalOhiohealth O'Bleness HospitalComment on above:Random Glucose Reference Range is [...] Serum or PlasmaOrdered By: Akash Mccartney on 01-13-7575VR3 [Moles/Vol]26.3 mmol/L Awhkfo16.0-31.0[facility] HospitalComment on above:Performed By: #### BMP, CBC ####[address] [address] USAChloride [Moles/volume] in Serum or PlasmaOrdered By: Akash Mccartney on 99-85-3213Wqxtkvtl [Moles/Vol]103 mmol/FVykrmb97-234IgiuextrfOhiohealth O'Bleness HospitalComment on above:Performed By: #### BMP, CBC ####[address] [address] [facility] Complete Blood Count Auto Diffon 10-50-6233Vtakzcklr (Bld) [#/Vol]0.0 10*3/uL Normal0.0-0.2The [facility] Physician GroupComment on above:Result Comment: PERFORMED BY:[address] [place], [place] [phone] MEDICAL DIRECTORMARY SONI M.D.Performed By: #### BMP, CBC ####[address] [address] USABasophils/100 WBC (Bld)0.8 %Normal.The [facility] Physician GroupComment on above:Performed By: #### BMP, CBC ####[address] [address] USAEosinophils (Bld) [#/Vol]0.2 10*3/uLNormal 0.0-0.45The [facility] Physician GroupComment on above:Performed By: #### BMP, CBC ####[address] [address] [place] Eosinophils/100 WBC (Bld)6.2 %Normal.The [facility] Physician GroupComment on above:Performed By: #### BMP, CBC ####[address] [address] USAErythrocyte distribution width (RBC) [Ratio]18.1 % High12.0-14.8The [facility] Physician GroupComment on above:Performed By: #### BMP, CBC ####[address] [address] USAHematocrit (Bld) [Volume fraction]24.1 %Low38.8-50.0The [facility] Physician GroupComment on above:Performed By: #### BMP, CBC ####[address] [address] USAHemoglobin (Bld) [Mass/Vol]7.9 g/dLLow 13.0-17.0The [facility] Physician GroupComment on above:Performed By: #### BMP, CBC ####[place] [address] [place] Lymphocytes (Bld) [#/Vol]0.6 10*3/uLLow1.00-4.8[facility] Comment on above:Performed By: #### BMP, CBC ####[place] [address] USALymphocytes/100 WBC (Bld)17.9 %Normal. The [facility] Physician GroupComment on above:Performed By: #### BMP, CBC ####[address]H (RBC) [Entitic mass]29.0 dlMoimlq63.5-35.2The [facility] Physician GroupComment on above:Performed By: #### BMP, CBC ####[address]V (RBC) [Entitic vol]87.9 oVKfpmoc11.5-101 The [facility] Physician GroupComment on above:Performed By: #### BMP, CBC ####[place] [address] USAMean Corpuscular HGB Conc33.0 g/gGUfkrhp05.5-35.6The [facility] Physician GroupComment on above:Performed By: #### BMP, CBC ####[place] [address] USAMonocytes (Bld) [#/Vol]0.4 10*3/uLNormal 0.0-0.8The [facility] Physician GroupComment on above:Performed By: #### BMP, CBC ####[place] [address] [place] Monocytes/100 WBC (Bld)10.4 %Normal.The [facility] Physician GroupComment on above:Performed By: #### BMP, CBC ####[place] [address] USANeutrophils (Bld) [#/Vol]2.2 10*3/uLNormal1.8-7.7The [facility] Physician GroupComment on above:Performed By: #### BMP, CBC ####[place] [address] [place] Neutrophils/100 WBC (Bld)64.7 %Normal.The [facility] Physician GroupComment on above:Performed By: #### BMP, CBC ####[place] [address] USANRBC%0.1 /100{WBC}Normal0-0.5The [facility] Physician GroupComment on above:Performed By: #### BMP, CBC ####[place] [address] USAPlatelet mean volume (Bld) [Entitic vol]7.3 fLNormal6.6-10.1The [facility] Physician GroupComment on above: Performed By: #### BMP, CBC ####[place] [address] USAPlatelets (Bld) [#/Vol]195 10*3/oBKygxrr604-052Lmd [facility] Physician GroupComment on above:Performed By: #### BMP, CBC ####[place] [address] USARBC (Bld) [#/Vol]2.74 10*6/uLLow3.90-5.60The [facility] Physician GroupComment on above:Performed By: #### BMP, CBC ####[place] [address] USAWBC (Bld) [#/Vol]3.4 10*3/uLLow4.1-10.5The [facility] Physician GroupComment on above:Performed By: #### BMP, CBC ####[place] [address] USAWhite Blood Count3.4 [CFU]/mLLow4.1-10.5The [facility] Physician GroupComment on above:Performed By: #### BMP, CBC ####[place] [address] USACreatinine [Mass/volume] in Serum or PlasmaOrdered By: Akash Mccartney on 85-08-2206Xypqbidkwl [Mass/Vol]1.20 mg/dLNormal0.70-1.30[facility] HospitalComment on above:Performed By: #### BMP, CBC ####[facility] [address] [place] [address] [place] Glomerular filtration rate [Volume Rate/Area] in Serum, Plasma or Blood by CreatinineOrdered By: Akash Mccartney on 24-11-1682Pufkkwjwip filtration rate [Volume Rate/Area] in Serum, Plasma or Blood by Creatinine> 60.0 mL/Min [facility]len[facility] HospitalGlucose Poct Glucometerson 17-02-8503Oltcrim9 Glu2: Cleaned [facility] Physician GroupComment on above:Result Comment: PERFORMED BY:[address] [place], [place] [phone] MEDICAL MARY KATE SONI M.D.Performed By: #### GLULS ####Point of Care testing,Glucose [Mass/volume] in Serum or PlasmaOrdered By: Akash Mccartney on 67-05-2003Xixxvlb [Mass/Vol]84 mg/dL Bykbdw29-568SlyowvtrcOhiohealth O'Bleness HospitalComment on above:ADA recommended reference rangeRandom Glucose [...] recommended reference rangePerformed By: #### BMP, CBC ####[facility] [address] [place] [address] USANo Panel InformationOrdered By: Akash Mccartney on 12-17-2024 Bedside Glucose CommentGlu2: cleaned [facility] HospitalGlu2: cleaned [facility] HospitalPharmacy Creatinine Clearance (Chem47.08[facility]47.08[facility] HospitalPotassium [Moles/volume] in Serum or PlasmaOrdered By: Akash Mccartney on 49-98-8833Prxlkqxkr [Moles/Vol]3.8 mmol/LNormal3.5-5.1FMartin Memorial HospitalComment on above:Performed By: #### BMP, CBC ####[address] [place] [address] USASerum or plasma anion gap determinationOrdered By: Akash Mccartney on 24-80-5465Zamiz gap [Moles/Vol]9.5 mmol/LNormal6.0-15.0[facility] HospitalComment on above:Performed By: #### BMP, CBC ####[address] [place] [address] USASodium [Moles/volume] in Serum or PlasmaOrdered By: Akash Mccartney on 19-79-8602Bkiwyf [Moles/Vol]135 mmol/JRli358-934ItftakakbOhiohealth O'Bleness HospitalComment on above:Performed By: #### BMP, CBC ####[address] [address] USAUrea nitrogen [Mass/volume] in Serum or PlasmaOrdered By: Akash Mccartney on 65-94-8778Iujj nitrogen [Mass/Vol]20 mg/dLNormal7-25[facility]len[facility] HospitalComment on above:Performed By: #### BMP, CBC ####[address] [place] [address] USAGlucose Poct Glucometerson 28-65-9804Ymaszmr [Mass/Vol]157 mg/dLNoAsheville Specialty Hospital Physician GroupComment on above:Result Comment: Random Glucose Reference Range is dependent on time and content of last meal. Glucose of more than 200 mg/dL in a nonstressed, ambulatory subject supports the diagnosis of Diabetes Mellitus.PERFORMED BY:[address] [place] [place], [place] [phone] MEDICAL DIRECTORMARIO S NAE M.D.Performed By: #### GLULS ####Point of Care testing,Alanine aminotransferase [Enzymatic activity/volume] in Serum or PlasmaOrdered By: Akash Mccartney on 12-15-2024 ALT [Catalytic activity/Vol]10 U/LNormal7-52[facility] Comment on above:Performed By: #### CMP, CBC ####[address] [place] [address] USAAlbumin [Mass/volume] in Serum or Plasma by Bromocresol green (BCG) dye binding methoOrdered By: Akash Mccartney on 24-60-7018Nmyyuob BCG dye [Mass/Vol]3.4 g/dLLow3.5-5.7FMartin Memorial HospitalAlkaline phosphatase [Enzymatic activity/volume] in Serum or PlasmaOrdered By: Akash Mccartney on 65-12-5280XER [Catalytic activity/Vol]99 U/KTlbjwo56-421PxdikqnecOhiohealth O'Bleness HospitalComment on above:Performed By: #### CMP, CBC ####[place] [address] USAAspartate aminotransferase [Enzymatic activity/volume] in Serum or PlasmaOrdered By: Akash Mccartney on 12-15-2024 AST [Catalytic activity/Vol]23 U/SUeadbm45-41TgaznstixOhiohealth O'Bleness Hospital Comment on above:Performed By: #### CMP, CBC ####[place] [address] USABilirubin.total [Mass/volume] in Serum or PlasmaOrdered By: Akash Mccartney on 80-23-0736Xipjpoupn [Mass/Vol]0.8 mg/dLNormal0.3-1.0[facility]leness HospitalComment on above:Performed By: #### CMP, CBC ####[address] [place] [address] USAComplete Blood Count Auto Diffon 88-79-5813Klptmkuaw (Bld) [#/Vol] 0.0 10*3/uLNormal0.0-0.2The [facility] Physician GroupComment on above:Result Comment: PERFORMED BY:[address] [place], [place] [phone] MEDICAL DIRECTORMARY SONI M.D.Performed By: #### CMP, CBC ####[address] [address] USABasophils/100 WBC (Bld)0.5 %Normal.[facility] Comment on above:Performed By: #### CMP, CBC ####[address] [address] USAEosinophils (Bld) [#/Vol]0.2 10*3/uL Normal0.0-0.45The [facility] Physician GroupComment on above:Performed By: #### CMP, CBC ####[address] [address] USAEosinophils/100 WBC (Bld)4.6 %Normal.The [facility] Physician GroupComment on above:Performed By: #### CMP, CBC ####[address] [address] USAErythrocyte distribution width (RBC) [Ratio]18.3 % High12.0-14.8The [facility] Physician GroupComment on above:Performed By: #### CMP, CBC ####[address] [address] USAHematocrit (Bld) [Volume fraction]29.0 %Low38.8-50.0The [facility] Physician GroupComment on above:Performed By: #### CMP, CBC ####[address] [address] USAHemoglobin (Bld) [Mass/Vol]9.5 g/dLLow 13.0-17.0The [facility] Physician GroupComment on above:Performed By: #### CMP, CBC ####[address] [address] [place] Lymphocytes (Bld) [#/Vol]0.4 10*3/uLLow1.00-4.8[facility] Comment on above:Performed By: #### CMP, CBC ####[place] [address] USALymphocytes/100 WBC (Bld)7.7 %Normal. The [facility] Physician GroupComment on above:Performed By: #### CMP, CBC ####[address] StreetMCH (RBC) [Entitic mass]29.0 iwFdccfd35.5-35.2The [facility] Physician GroupComment on above:Performed By: #### CMP, CBC ####[address]MCV (RBC) [Entitic vol]88.4 tOKiqbaa76.5-101 The [facility] Physician GroupComment on above:Performed By: #### CMP, CBC ####[place] [address] USAMean Corpuscular HGB Conc32.8 g/gARedcsm54.5-35.6The [facility] Physician GroupComment on above:Performed By: #### CMP, CBC ####[place] [address] USAMonocytes (Bld) [#/Vol]0.2 10*3/uLNormal 0.0-0.8The [facility] Physician GroupComment on above:Performed By: #### CMP, CBC ####[place] [address] [place] Monocytes/100 WBC (Bld)3.3 %Normal.The [facility] Physician GroupComment on above:Performed By: #### CMP, CBC ####[place] USANeutrophils (Bld) [#/Vol]4.4 10*3/uLNormal1.8-7.7The [facility] Physician GroupComment on above:Performed By: #### CMP, CBC ####[place] [address] [place] Neutrophils/100 WBC (Bld)83.9 %Normal.The [facility] Physician GroupComment on above:Performed By: #### CMP, CBC ####[place] [address] USANRBC%0.2 /100{WBC}Normal0-0.5The [facility] Physician GroupComment on above:Performed By: #### CMP, CBC ####[place] [address] USAPlatelet mean volume (Bld) [Entitic vol]7.5 fLNormal6.6-10.1The [facility] Physician GroupComment on above: Performed By: #### CMP, CBC ####[place] [address] USAPlatelets (Bld) [#/Vol]280 10*3/kKMrbaup038-952Rqr [facility] Physician GroupComment on above:Performed By: #### CMP, CBC ####[place] [address] USARBC (Bld) [#/Vol]3.27 10*6/uLLow3.90-5.60The [facility] Physician GroupComment on above:Performed By: #### CMP, CBC ####[place] [address] USAWBC (Bld) [#/Vol]5.2 10*3/uLNormal4.1-10.5The [facility] Physician GroupComment on above:Performed By: #### CMP, CBC ####[place] [address] USAWhite Blood Count5.2 [CFU]/mLNormal4.1-10.5The [facility] Physician GroupComment on above:Performed By: #### CMP, CBC ####[place] [address] USAComprehensive Metabolic Panelon 74-18-3479Nmvryyn [Mass/Vol]3.4 g/dLLow3.5-5.7The [facility] Physician GroupComment on above: Performed By: #### CMP, CBC ####[address] [address] USAAnion gap [Moles/Vol]10.3 mmol/LNormal6.0-15.0The [facility] Physician GroupComment on above:Performed By: #### CMP, CBC ####[address] [address] USACalcium [Mass/Vol]8.9 mg/dLNormal8.6-10.3The [facility] Physician GroupComment on above: Performed By: #### CMP, CBC ####[address] [address] USAChloride [Moles/Vol]103 mmol/GIugwpr61-030Dnu [facility] Physician GroupComment on above:Performed By: #### CMP, CBC ####[place] [id number] [place]ACO2 [Moles/Vol]26.6 mmol/CTfymqj86.0-31.0The Formerly [facility] Physician GroupComment on above:Performed By: #### CMP, CBC ####[place] [id number] USACreatinine [Mass/Vol]1.21 mg/dLNormal0.70-1.30The Formerly [facility] Physician GroupComment on above:Performed By: #### CMP, CBC ####[address] [address] [place] Creatinine Clr Calc Bhnjmuiu10.69NormalThe Formerly [facility] Physician GroupComment on above:Result Comment: PERFORMED BY:[address] [place], [place] [phone] MEDICAL MARY KATE SONI M.D.Performed By: #### CMP, CBC ####[address] [address] USAGFR/1.73 sq M.predicted MDRD (S/P/Bld) [Vol rate/Area]59.409 mL/min/{1.73_m2}NormalThe Formerly [facility] Physician GroupComment on above:Performed By: #### CMP, CBC ####[address] [place] [address] USAGlucose [Mass/Vol]83 mg/zCTrxkpn13-426Yak [facility] Physician GroupComment on above:Result Comment: Random Glucose Reference Range is dependent on time and content of last meal. Glucose of more than 200 mg/dL in a nonstressed, ambulatory subject supports the diagnosis of Diabetes Mellitus. ADA recommended reference rangePerformed By: #### CMP, CBC ####[address] [address] USAPotassium [Moles/Vol] 3.9 mmol/LNormal3.5-5.1The [facility] HospitalComment on above:Performed By: #### CMP, CBC ####[place] [address] USASodium [Moles/Vol]136 mmol/NSivjkh799-879Stv [facility] HospitalComment on above:Performed By: #### CMP, CBC ####[place] [address] USAUrea nitrogen [Mass/Vol]16 mg/dL Normal7-25The [facility] HospitalComment on above:Performed By: #### CMP, CBC ####[place] [address] [place] Protein [Mass/volume] in Serum or PlasmaOrdered By: Akash Mccartney on 27-78-8865Wqtpxra [Mass/Vol]6.6 g/dLNormal6.4-8.9[facility]leness HospitalComment on above:Performed By: #### CMP, CBC ####[place] [address] USASerum globulin measurement by calculation (mass/volume)Ordered By: Akash Mccartney on 17-82-5660Wjcmxsfz (S) [Mass/Vol]3.2 g/dLNormalOhiohealth O'Bleness HospitalComment on above: Performed By: #### CMP, CBC ####[place] [address] USASerum or plasma albumin/globulin mass ratioOrdered By: Akash Mccartney on 43-59-5664Qhxtbbz/Globulin [Mass ratio]1.1 {ratio} NormalOhiohealth O'Bleness HospitalComment on above:Performed By: #### CMP, CBC ####[place] [address] [facility] Complete Blood Count Auto Diffon 49-79-9970Dcxysvbtm (Bld) [#/Vol]0.0 10*3/uL Normal0.0-0.2The Former[facility] Physician GroupComment on above:Result Comment: PERFORMED BY:[address] [place], [place] [phone] MEDICAL DIRECTORMARY SONI M.D.Performed By: #### CBC, CMP ####[place] [address] USABasophils/100 WBC (Bld)0.7 %Normal.The [facility] Physician GroupComment on above:Performed By: #### CBC, CMP ####[place] [address] USAEosinophils (Bld) [#/Vol]0.3 10*3/uLNormal 0.0-0.45The [facility] HospitalComment on above:Performed By: #### CBC, CMP ####[place] [address] [place] Eosinophils/100 WBC (Bld)5.4 %Normal.The [facility] Physician GroupComment on above:Performed By: #### CBC, CMP ####[place] [address] USAErythrocyte distribution width (RBC) [Ratio]18.3 % High12.0-14.8The Former[facility] Physician GroupComment on above:Performed By: #### CBC, CMP ####[place] [address] USAHematocrit (Bld) [Volume fraction]25.1 %Low38.8-50.0The Former[facility] Physician GroupComment on above:Performed By: #### CBC, CMP ####[place] [address] USAHemoglobin (Bld) [Mass/Vol]8.2 g/dLLow 13.0-17.0The Former[facility] Physician GroupComment on above:Performed By: #### CBC, CMP ####[place] [address] [place] Lymphocytes (Bld) [#/Vol]1.2 10*3/uLNormal1.00-4.8The [facility] Comment on above:Performed By: #### CBC, CMP ####[place] [address] USALymphocytes/100 WBC (Bld)22.4 %Normal. The Former[facility] Physician GroupComment on above:Performed By: #### CBC, CMP ####[place] [address] USAMCH (RBC) [Entitic mass]28.5 tbLxfkku20.5-35.2The Formerly [facility] Physician GroupComment on above:Performed By: #### CBC, CMP ####[place] [address] USAMCV (RBC) [Entitic vol]87.6 oHJpvlxr59.5-101 The Formerly [facility] Physician GroupComment on above:Performed By: #### CBC, CMP ####[place] [address] USAMean Corpuscular HGB Conc32.5 g/hAUdkkhi88.5-35.6The Former[facility] Physician GroupComment on above:Performed By: #### CBC, CMP ####[place] [address] USAMonocytes (Bld) [#/Vol]0.5 10*3/uLNormal 0.0-0.8The Former[facility] Physician GroupComment on above:Performed By: #### CBC, CMP ####[place] [address] [place] Monocytes/100 WBC (Bld)8.9 %Normal.The Former[facility] Physician GroupComment on above:Performed By: #### CBC, CMP ####[address] [address] USANeutrophils (Bld) [#/Vol]3.3 10*3/uLNormal1.8-7.7The Former[facility] Physician GroupComment on above:Performed By: #### CBC, CMP ####[place] [address] [place] Neutrophils/100 WBC (Bld)62.6 %Normal.The Former[facility] Physician GroupComment on above:Performed By: #### CBC, CMP ####[place] [address] USANRBC%0.1 /100{WBC}Normal0-0.5The Former[facility] Physician GroupComment on above:Performed By: #### CBC, CMP ####[place] [address] USAPlatelet mean volume (Bld) [Entitic vol]7.7 fLNormal6.6-10.1The Former[facility] Physician GroupComment on above: Performed By: #### CBC, CMP ####[address] [address] USAPlatelets (Bld) [#/Vol]230 10*3/wZJlbriy608-881Dpc [facility] Physician GroupComment on above:Performed By: #### CBC, CMP ####[place] [address] USARBC (Bld) [#/Vol]2.87 10*6/uLLow3.90-5.60The Formerly [facility] Physician GroupComment on above:Performed By: #### CBC, CMP ####[address] [address] USAWBC (Bld) [#/Vol]5.3 10*3/uLNormal4.1-10.5The Former[facility] Physician GroupComment on above:Performed By: #### CBC, CMP ####[place] [address] USAWhite Blood Count5.3 [CFU]/mLNormal4.1-10.5The Former[facility] Physician GroupComment on above:Performed By: #### CBC, CMP ####[place] [address] USAComprehensive Metabolic Panelon 34-05-4240Egfcgtf [Mass/Vol]3.1 g/dLLow3.5-5.7The Formerly [facility] Physician GroupComment on above: Performed By: #### CBC, CMP ####[place] [address] USAAlbumin/Globulin [Mass ratio]1.1 {ratio}NormalThe Formerly [facility] Physician GroupComment on above:Performed By: #### CBC, CMP ####[place] [address] USAALP [Catalytic activity/Vol]85 U/AMsdddg30-776Esj [facility] Physician GroupComment on above:Performed By: #### CBC, CMP ####[place] [address] USAALT [Catalytic activity/Vol]10 U/LNormal7-52 The Former[facility] Physician GroupComment on above:Performed By: #### CBC, CMP ####[place] [address] USAAnion gap [Moles/Vol]11.5 mmol/LNormal6.0-15.0The Formerly [facility] Physician GroupComment on above:Performed By: #### CBC, CMP ####[place] [address] USAAST [Catalytic activity/Vol]25 U/VTtjsoc15-23Lzg [facility] Physician GroupComment on above:Performed By: #### CBC, CMP ####[place] [address] [place] Bilirubin [Mass/Vol]0.6 mg/dLNormal0.3-1.0The Former[facility] Physician GroupComment on above:Performed By: #### CBC, CMP ####[place] [address] USACalcium [Mass/Vol]8.3 mg/dLLow8.6-10.3The Formerly [facility] Physician GroupComment on above:Performed By: #### CBC, CMP ####[address] [address] [place] Chloride [Moles/Vol]104 mmol/SFvdtsw08-434Tdn [facility] Physician GroupComment on above:Performed By: #### CBC, CMP ####[place] [address] [place] [address] USACO2 [Moles/Vol]25.5 mmol/CJovpjv41.0-31.0The Formerly [facility] Physician GroupComment on above:Performed By: #### CBC, CMP ####[address] [address] [place] Creatinine [Mass/Vol]1.15 mg/dLNormal0.70-1.30The [facility] Comment on above:Performed By: #### CBC, CMP ####[address] [address] USACreatinine Clr Calc Vwfpogsk87.10 NormalThe Formerly [facility] Physician GroupComment on above:Result Comment: PERFORMED BY:[address] [place], [place] [phone] MEDICAL DIRECTORMARY SONI M.D.Performed By: #### CBC, CMP ####[address] [address] [place] GFR/1.73 sq M.predicted MDRD (S/P/Bld) [Vol rate/Area]mL/min/{1.73_m2}NormalThe Formerly [facility] Physician GroupComment on above:Performed By: #### CBC, CMP ####[address] [address] [place] Globulin (S) [Mass/Vol]2.8 g/dLNormalThe [facility] Physician GroupComment on above:Performed By: #### CBC, CMP ####[address] [address] USAGlucose [Mass/Vol]81 mg/jBQhmhwv63-563Ceg [facility] Physician GroupComment on above:Result Comment: Random Glucose Reference Range is dependent on time and content of last meal. Glucose of more than 200 mg/dL in a nonstressed, ambulatory subject supports the diagnosis of Diabetes Mellitus. ADA recommended reference rangePerformed By: #### CBC, CMP ####[place] [address] [place] [address] USAPotassium [Moles/Vol] 4.0 mmol/LNormal3.5-5.1The [facility] HospitalComment on above:Performed By: #### CBC, CMP ####[place] [address] [place] [address] USAProtein [Mass/Vol]5.9 g/dLLow6.4-8.9The [facility] Comment on above:Performed By: #### CBC, CMP ####[address] [address] USASodium [Moles/Vol]137 mmol/LNormal 136-145The Former[facility] Physician GroupComment on above:Performed By: #### CBC, CMP ####[address] [address] USAUrea nitrogen [Mass/Vol]16 mg/dLNormal7-25The [facility] HospitalComment on above:Performed By: #### CBC, CMP ####[address] [address] USAECH echo transthoracicon 01-99-3046IWT echo transthoracicNoAsheville Specialty Hospital Physician EmnchM8R with Estimated Average Gluon 52-27-3384Zdxallv [Mass/Vol]111 mg/dLNoAsheville Specialty Hospital Physician [facility] HospitalComment on above:Result Comment: PERFORMED BY:[address] [place], [place] [phone] MEDICAL DIRECTORMARY SONI M.D.Performed By: #### ELDER, PTT, CMP, FE and TIBC, PT, A1C WTH eA, LIPID, MG, [id number], HS TROP, CBC ####[address] [address] USABlood estimated average glucose determination by estimation from glycated hemoglobinOrdered By: Akash Mccartney on 12-13-2024 Average glucose Estimated from glycated hemoglobin (Bld) [Mass/Vol]111 mg/dL [facility] HospitalCholesterol [Mass/volume] in Serum or Plasma Ordered By: Akash Mccartney on 19-38-0653Sswhjhvwfii [Mass/Vol]89 mg/dLLow 140-200Ohio[facility]len[facility] HospitalComment on above:Chol less than 200 mg/dl low riskChol 201-239 mg/dl borderline riskChol 240 mg/dl and greater high riskOrder Comment: FASTING YResult Comment: Chol less than 200 mg/dl low risk Chol 201-239 mg/dl borderline risk Chol 240 mg/dland greater high riskPerformed By: #### ELDER, PTT, CMP, FE and TIBC, PT, A1C WTH eA, LIPID, MG, [id number], HS TROP, CBC ####[facility] [address] [place] [address] USACholesterol in HDL [Mass/volume] in Serum or PlasmaOrdered By: Akash Mccartney on 49-10-3994Zbwowdifplg in HDL [Mass/Vol]43 mg/kJHokjuw36-58YttsxhtmcOhiohealth O'Bleness HospitalComment on above:HDL CHOL ATP-III CLASSIFICATION Cardiovascular RiskHDL > or equal to 60 mg/dL LOWHDL < 40 mg/dL HIGHOrder Comment: FASTING YResult Comment: HDL CHOL ATP-III CLASSIFICATION Cardiovascular Risk HDL > or equal to 60 mg/dL LOW HDL < 40 mg/dL HIGHPerformed By: #### ELDER, PTT, CMP, FE and TIBC, PT, A1C WTH eA, LIPID, MG, [id number], HS TROP, CBC ## ##[facility] [address] [place] [address] [place] Cholesterol in LDL Calc [Mass/Vol]Ordered By: Akash Mccartney on 12-13-2024 Cholesterol in LDL [Mass/Vol]35 mg/dL0-100[facility] Comment on above:LDL ATP III CLASSIFICATIONLDL less than 100 mg/dL OptimalLDL 100-129 mg/dL Near or above fuaelrsRSH909-914 mg/dL Borderline highLDL 160-189 mg/dL HighLDL greater than 189 mg/dL Very highCholesterol in VLDL Calc [Mass/Vol]Ordered By: Akash Mccartney on 20-92-8473Gvattaoptxs in VLDL [Mass/Vol]11 mg/dLOhiohealth O'Bleness HospitalComplete Blood Count Auto Diffon 89-74-9878Jyetyvdjf (Bld) [#/Vol]0.0 10*3/uLNormal0.0-0.2The Former[facility] Physician GroupComment on above:Result Comment: PERFORMED BY:[address] [place], [place] [phone] MEDICAL DIRECTORMARY SONI M.D.Performed By: #### ELDER, PTT, CMP, FE and TIBC, PT, A1C WTH eA, LIPID, MG, [id number], HS TROP, CBC ####[address] [address] USABasophils/100 WBC (Bld)0.8 %Normal.The Formerly [facility] Physician GroupComment on above:Performed By: #### ELDER, PTT, CMP, FE and TIBC, PT, A1C WTH eA, LIPID, MG, [id number], HS TROP, CBC ####[address] [address] USAEosinophils (Bld) [#/Vol]0.4 10*3/uLNormal0.0-0.45The Former[facility] Physician GroupComment on above: Performed By: #### ELDER, PTT, CMP, FE and TIBC, PT, A1C WTH eA, LIPID, MG, [id number], HS TROP, CBC ####[address] [address] USAEosinophils/100 WBC (Bld)7.4 %Normal.The Former[facility] Physician GroupComment on above:Performed By: #### ELDER, PTT, CMP, FE and TIBC, PT, A1C WTH eA, LIPID, MG, [id number], HS TROP, CBC ####[address] [address] USAErythrocyte distribution width (RBC) [Ratio]18.2 %High12.0-14.8The Former[facility] Physician GroupComment on above: Performed By: #### ELDER, PTT, CMP, FE and TIBC, PT, A1C WTH eA, LIPID, MG, [id number], HS TROP, CBC ####[place] [address] USAHematocrit (Bld) [Volume fraction]23.9 %Low38.8-50.0 The Former[facility] Physician GroupComment on above:Performed By: #### ELDER, PTT, CMP, FE and TIBC, PT, A1C WTH eA, LIPID, MG, [id number], HS TROP, CBC ####[place] [address] USAHemoglobin (Bld) [Mass/Vol]7.9 g/dLLow13.0-17.0The Former[facility] Physician GroupComment on above: Performed By: #### ELDER, PTT, CMP, FE and TIBC, PT, A1C WTH eA, LIPID, MG, [id number], HS TROP, CBC ####[place] [address] USALymphocytes (Bld) [#/Vol]1.0 10*3/uLNormal1.00-4.8 The Former[facility] Physician GroupComment on above:Performed By: #### ELDER, PTT, CMP, FE and TIBC, PT, A1C WTH eA, LIPID, MG, [id number], HS TROP, CBC ####[place] [address] USALymphocytes/100 WBC (Bld)19.1 %Normal.The Former[facility] Physician GroupComment on above:Performed By: #### ELDER, PTT, CMP, FE and TIBC, PT, A1C WTH eA, LIPID, MG, [id number], HS TROP, CBC ####[place] [address] USAMCH (RBC) [Entitic mass]29.1 llUevnfj96.5-35.2The Formerly [facility] Physician GroupComment on above:Performed By: #### ELDER, PTT, CMP, FE and TIBC, PT, A1C WTH eA, LIPID, MG, [id number], HS TROP, CBC ####[place] [address] USAMCV (RBC) [Entitic vol]88.3 zAVubeyw72.5-101The Formerly [facility] Physician GroupComment on above:Performed By: #### ELDER, PTT, CMP, FE and TIBC, PT, A1C WTH eA, LIPID, MG, [id number], HS TROP, CBC ####[place] [address] USAMean Corpuscular HGB Conc32.9 g/xPNkgsol07.5-35.6The Former[facility] Physician GroupComment on above: Performed By: #### ELDER, PTT, CMP, FE and TIBC, PT, A1C WTH eA, LIPID, MG, [id number], HS TROP, CBC ####[place] [address] USAMonocytes (Bld) [#/Vol]0.4 10*3/uLNormal0.0-0.8The Former[facility] Physician GroupComment on above:Performed By: #### ELDER, PTT, CMP, FE and TIBC, PT, A1C WTH eA, LIPID, MG, [id number], HS TROP, CBC ####[place] [address] USAMonocytes/100 WBC (Bld)7.4 %Normal.The Former[facility] Physician GroupComment on above:Performed By: #### LEDER, PTT, CMP, FE and TIBC, PT, A1C WTH eA, LIPID, MG, [id number], HS TROP, CBC ####[place] [address] [place] Neutrophils (Bld) [#/Vol]3.4 10*3/uLNormal1.8-7.7The [facility] Comment on above:Performed By: #### ELDER, PTT, CMP, FE and TIBC, PT, A1C WTH eA, LIPID, MG, [id number], HS TROP, CBC ####[place] [address] USANeutrophils/100 WBC (Bld)65.3 %Normal.The [facility] Physician GroupComment on above:Performed By: #### ELDER, PTT, CMP, FE and TIBC, PT, A1C WTH eA, LIPID, MG, [id number], HS TROP, CBC ####[place] [address] USANRBC%0.0 /100{WBC}Normal0-0.5 The Former[facility] Physician GroupComment on above:Performed By: #### ELDER, PTT, CMP, FE and TIBC, PT, A1C WTH eA, LIPID, MG, [id number], HS TROP, CBC ####[place] [address] USAPlatelet mean volume (Bld) [Entitic vol]7.8 fLNormal6.6-10.1The [facility] Physician GroupComment on above:Performed By: #### ELDER, PTT, CMP, FE and TIBC, PT, A1C WTH eA, LIPID, MG, [id number], HS TROP, CBC ####[place] [address] USAPlatelets (Bld) [#/Vol]218 10*3/nJClytwt096-492Bhj [facility] Physician GroupComment on above:Performed By: #### ELDER, PTT, CMP, FE and TIBC, PT, A1C WTH eA, LIPID, MG, [id number], HS TROP, CBC ####[place] [address] USARBC (Bld) [#/Vol]2.71 10*6/uLLow3.90-5.60The [facility] Physician GroupComment on above:Performed By: #### ELDER, PTT, CMP, FE and TIBC, PT, A1C WTH eA, LIPID, MG, [id number], HS TROP, CBC ####[place] [address] USAWBC (Bld) [#/Vol]5.2 10*3/uLNormal4.1-10.5The [facility] Physician GroupComment on above:Performed By: #### ELDER, PTT, CMP, FE and TIBC, PT, A1C WTH eA, LIPID, MG, [id number], HS TROP, CBC ####[address] [address] USAWhite Blood Count5.2 [CFU]/mLNormal4.1-10.5The Former[facility] Physician GroupComment on above:Performed By: #### ELDER, PTT, CMP, FE and TIBC, PT, A1C WTH eA, LIPID, MG, [id number], HS TROP, CBC ####[place] [address] USAComprehensive Metabolic Panelon 95-14-7137Mbsmuuk [Mass/Vol]3.1 g/dLLow3.5-5.7The [facility] Physician GroupComment on above:Order Comment: FASTING YPerformed By: #### ELDER, PTT, CMP, FE and TIBC, PT, A1C WTH eA, LIPID, MG, [id number], HS TROP, CBC ## ##[place] [address] [place] Albumin/Globulin [Mass ratio]1.1 {ratio}NormalThe [facility] Comment on above:Order Comment: FASTING YPerformed By: #### ELDER, PTT, CMP, FE and TIBC, PT, A1C WTH eA, LIPID, MG, [id number], HS TROP, CBC ####[address] [address] USAALP [Catalytic activity/Vol]81 U/NLyybch09-757Zkp [facility] Physician GroupComment on above: Order Comment: FASTING YPerformed By: #### ELDER, PTT, CMP, FE and TIBC, PT, A1C WTH eA, LIPID, MG, [id number], HS TROP, CBC ####[address] [address] USAALT [Catalytic activity/Vol]11 U/L Normal7-52The Former[facility] Physician GroupComment on above:Order Comment: FASTING Y Performed By: #### ELDER, PTT, CMP, FE and TIBC, PT, A1C WTH eA, LIPID, MG, [id number], HS TROP, CBC ####[address] [address] USAAnion gap [Moles/Vol]9.5 mmol/LNormal6.0-15.0The Former[facility] Physician GroupComment on above:Order Comment: FASTING YPerformed By: #### ELDER, PTT, CMP, FE and TIBC, PT, A1C WTH eA, LIPID, MG, [id number], HS TROP, CBC ####[place] [address] USAAST [Catalytic activity/Vol]33 U/BOihmde16-30Pyq [facility] Physician GroupComment on above:Order Comment: FASTING YPerformed By: #### ELDER, PTT, CMP, FE and TIBC, PT, A1C WTH eA, LIPID, MG, [id number], HS TROP, CBC ####[address] [address] USABilirubin [Mass/Vol]0.7 mg/dL Normal0.3-1.0The Former[facility] Physician GroupComment on above:Order Comment: FASTING YPerformed By: #### ELDER, PTT, CMP, FE and TIBC, PT, A1C WTH eA, LIPID, MG, [id number], HS TROP, CBC ####[place] [address] USACalcium [Mass/Vol]8.5 mg/dLLow8.6-10.3The Former[facility] Physician GroupComment on above:Order Comment: FASTING YPerformed By: #### ELDER, PTT, CMP, FE and TIBC, PT, A1C WTH eA, LIPID, MG, [id number], HS TROP, CBC ## ##[address] [address] USAChloride [Moles/Vol]106 mmol/CByuwyd71-372Xid [facility] Physician GroupComment on above: Order Comment: FASTING YPerformed By: #### ELDER, PTT, CMP, FE and TIBC, PT, A1C WTH eA, LIPID, MG, [id number], HS TROP, CBC ####[place] [address] USACO2 [Moles/Vol]24.1 mmol/LNormal 21.0-31.0[facility] Physician GroupComment on above:Order Comment: FASTING Y Performed By: #### ELDER, PTT, CMP, FE and TIBC, PT, A1C WTH eA, LIPID, MG, [id number], HS TROP, CBC ####[place] [address] USACreatinine [Mass/Vol]1.05 mg/dLNormal0.70-1.30The [facility] Physician GroupComment on above:Order Comment: FASTING YPerformed By: #### ELDER, PTT, CMP, FE and TIBC, PT, A1C WTH eA, LIPID, MG, [id number], HS TROP, CBC ####[address] Creatinine Clr Calc Kibjazyr18.26NoAsheville Specialty Hospital Physician GroupComment on above:Order Comment: FASTING YPerformed By: #### ELDER, PTT, CMP, FE and TIBC, PT, A1C WTH eA, LIPID, MG, [id number], HS TROP, CBC ####[place] [address] USAGFR/1.73 sq M.predicted MDRD (S/P/Bld) [Vol rate/Area]mL/min/{1.73_m2}NormalThe Formerly [facility] Physician GroupComment on above:Order Comment: FASTING YPerformed By: #### ELDER, PTT, CMP, FE and TIBC, PT, A1C WTH eA, LIPID, MG, [id number], HS TROP, CBC ####[place] [address] [facility] CENTERGlobulin (S) [Mass/Vol]2.7 g/dLNormal [facility] Physician GroupComment on above:Order Comment: FASTING YPerformed By: #### ELDER, PTT, CMP, FE and TIBC, PT, A1C WTH eA, LIPID, MG, [id number], HS TROP, CBC ####[place] [address] USAGlucose [Mass/Vol]78 mg/eKHvqhrd09-974Cnd [facility] Physician GroupComment on above:Order Comment: FASTING YResult Comment: Random Glucose Reference Range is dependent on time and content of last meal. Glucose of more than 200 mg/dL in a nonstressed, ambulatory subject supports the diagnosis of Diabetes Mellitus. ADA recommended reference rangePerformed By: #### ELDER, PTT, CMP, FE and TIBC, PT, A1C WTH eA, LIPID, MG, [id number], HS TROP, CBC ####[place] [address] USAPotassium [Moles/Vol]3.6 mmol/LNormal3.5-5.1The [facility] Physician GroupComment on above:Order Comment: FASTING YPerformed By: #### ELDER, PTT, CMP, FE and TIBC, PT, A1C WTH eA, LIPID, MG, [id number], HS TROP, CBC ####[place] [address] USAProtein [Mass/Vol]5.8 g/dLLow6.4-8.9The [facility] Physician GroupComment on above:Order Comment: FASTING YPerformed By: #### ELDER, PTT, CMP, FE and TIBC, PT, A1C WTH eA, LIPID, MG, [id number], HS TROP, CBC ## ##[place] [address] USASodium [Moles/Vol]136 mmol/LYadiux055-483Cmk [facility] Physician GroupComment on above: Order Comment: FASTING YPerformed By: #### ELDER, PTT, CMP, FE and TIBC, PT, A1C WTH eA, LIPID, MG, [id number], HS TROP, CBC ####[place] [address] USAUrea nitrogen [Mass/Vol]14 mg/dLNormal 7-25The [facility] Physician GroupComment on above:Order Comment: FASTING Y Performed By: #### ELDER, PTT, CMP, FE and TIBC, PT, A1C WTH eA, LIPID, MG, [id number], HS TROP, CBC ####[facility] [place] [address] USAFerritin [Mass/volume] in Serum or PlasmaOrdered By: Akash Mccartney on 15-03-5229Kcrxuixy [Mass/Vol]371.5 ng/lUWtlw24.9-336.2 [facility]len[facility] HospitalComment on above:Order Comment: FASTING Y Performed By: #### ELDER, PTT, CMP, FE and TIBC, PT, A1C WTH eA, LIPID, MG, [id number], HS TROP, CBC ####[id number] [place] [address] USAFolate [Mass/volume] in Serum or PlasmaOrdered By: Akash Mccartney on [id number] [Mass/Vol]9.1 ng/mL>5.9[facility]len[facility] HospitalComment on above:Folate reference range: >5.9 ng/mlThe WHO technical consultation on folate and vitamin [id number] has determined that folate concentrations lessthan 4 ng/ml are considered deficient.Hemoglobin A1c/Hemoglobin.total in BloodOrdered By: Akash Mccartney on [id number] (Bld) [Mass fraction]5.5 %Normal4.3-5.6FMartin Memorial HospitalComment on above:Increased risk for diabetes: 5.7 - 6.4diabetes: >6.4glycemic control for adults with diabetes: <7.0Result Comment: Increased risk for diabetes: 5.7 - 6.4 diabetes: >6.4 glycemic control for adults with diabetes: <7.0 Performed By: #### ELDER, PTT, CMP, FE and TIBC, PT, A1C WTH eA, LIPID, MG, [id number], HS TROP, CBC ####[id number] [place] [address] USAINR in Platelet poor plasma by Coagulation assay Ordered By: Akash Mccartney on [id number] Coag (PPP) [Relative time]2.5 {INR}NormalOhiohealth O'Bleness HospitalComment on above:INR Therapeutic Range A) Pre- [...] TIBC, PT, A1C WTH eA, LIPID, MG, [id number], HS TROP, CBC ####[id number] [place] [address] USAIron [Mass/volume] in Serum or PlasmaOrdered By: Akash Mccartney on 13-83-4609Nydu [Mass/Vol]11 ug/vYDfx78-246QiwricobuOhiohealth O'Bleness HospitalComment on above:Order Comment: FASTING YPerformed By: #### ELDER, PTT, CMP, FE and TIBC, PT, A1C WTH eA, LIPID, MG, [id number], HS TROP, CBC ####[address] [place] [address] [place] Iron and TIBC Profileon 12-13-2024% Iron Saturation5.4 %Xfj98-02Qii [facility] Physician GroupComment on above:Order Comment: FASTING YPerformed By: #### ELDER, PTT, CMP, FE and TIBC, PT, A1C WTH eA, LIPID, MG, [id number], HS TROP, CBC ## ##[facility] [place] [address] USATotal Iron Binding Wemyqwpz888 ug/tAMmn059-290Epf [facility] Physician GroupComment on above:Order Comment: FASTING YPerformed By: #### ELDER, PTT, CMP, FE and TIBC, PT, A1C WTH eA, LIPID, MG, [id number], HS TROP, CBC ####[address] [place] [address] USALipid Panelon 33-95-1876YNZ Cholesterol,Svwvgfnbii87 mg/dLNormal0-100The [facility] Physician GroupComment on above:Order Comment: FASTING YResult Comment: LDL ATP III CLASSIFICATION LDL less than 100 mg/dL Optimal LDL 100-129 mg/dL Near or above optimal LDL 130-159 mg/dL Borderline high LDL 160-189 mg/dL High LDL greater than 189 mg/dL Very highPerformed By: #### ELDER, PTT, CMP, FE and TIBC, PT, A1C WTH eA, LIPID, MG, [id number], HS TROP, CBC ####[address] [place] [address] USATriglyceride w/Equglh26 mg/dLNormal0-149The [facility] Physician GroupComment on above:Order Comment: FASTING YResult Comment: TRIG ATP III CLASSIFICATION TRIG less than 150 mg/dL Normal TRIG 150- 199 mg/dL Borderline high TRIG 200-500 mg/dL High TRIG greater than 500 mg/dL Very high Standard traceable to the Center for Disease Conrtrol and Prevention (CDC) test method.Performed By: #### ELDER, PTT, CMP, FE and TIBC, PT, A1C WTH eA, LIPID, MG, [id number], HS TROP, CBC ####[address] [address] USAVLDL ZUIUBBMOZGW01 mg/dLNormalThe [facility]ly [facility] Physician GroupComment on above:Order Comment: FASTING YPerformed By: #### ELDER, PTT, CMP, FE and TIBC, PT, A1C WTH eA, LIPID, MG, [id number], HS TROP, CBC ## ##[address] [address] USAMagnesium [Mass/volume] in Serum or PlasmaOrdered By: Akash Mccartney on 12-13-2024 Magnesium [Mass/Vol]1.8 mg/dLLow1.9-2.7FMartin Memorial HospitalComment on above:Order Comment: FASTING YPerformed By: #### ELDER, PTT, CMP, FE and TIBC, PT, A1C WTH eA, LIPID, MG, [id number], HS TROP, CBC ####[facility] [place] [address] USAPartial Thromboplastin Timeon 33-78-4659oYWH Coag (Bld) [Time]38.9 sHigh25.1-36.5The [facility] Comment on above:Result Comment: A hematocrit value greater than 55% may lead to inaccurate results in coagulation testing. Patients having hematocrit values >55% require a special collection tube for coagulation studies. Please contact the laboratory at [phone] for redraw instructions.PERFORMED BY:[address] [place], [place] [phone] MEDICAL DIRECTORMARY SONI M.D.Performed By: #### ELDER, PTT, CMP, FE and TIBC, PT, A1C WTH eA, LIPID, MG, [id number], HS TROP, CBC ####[address] [place] [address] USAProthrombin time (PT)Ordered By: Akash Mccartney on 26-17-0887CV Coag (PPP) [Time]27.3 sHigh9.0-12.9 [facility] HospitalComment on above:A hematocrit value greater than 55% may lead to inaccurate results in coagulation testing. Patientshaving hematocrit values >55% require a special collection tube for coagulation studies. Please contact the laboratory at [phone] for redraw instructions. Result Comment: A hematocrit value greater than 55% may lead to inaccurate results in coagulation testing. Patients having hematocrit values >55% require a special collection tube for coagulation studies. Please contact the laboratory at [phone] for redraw instructions.Performed By: #### ELDER, PTT, CMP, FE and TIBC, PT, A1C WTH eA, LIPID, MG, [id number], HS TROP, CBC ####[address] [place] [address] USASerum or plasma iron binding capacity measurement (mass/volume)Ordered By: Akash Mccartney on 12-13-2024 Iron binding capacity [Mass/Vol]204 ug/uUPoy449-217EjujsgiwsHighland District Hospitalerum or plasma iron saturation measurement (mass fraction)Ordered By: Akash Mccartney on 71-21-6202Wgdw saturation [Mass fraction]5.4 %Vmp90-91 Highland District Hospitalerum or plasma total cholesterol/high density lipoprotein (HDL) cholesterol mass ratOrdered By: Akash Mccartney on 26-58-9962Oonlcirfgrb.total/Cholesterol in HDL [Mass ratio]2.1 {ratio}Normal<5.0 [facility] HospitalComment on above:Order Comment: FASTING YResult Comment: PERFORMED BY:[address] [place], [place] [phone] MEDICAL DIRECTORMARY SONI M.D.Performed By: #### ELDER, PTT, CMP, FE and TIBC, PT, A1C WTH eA, LIPID, MG, [id number], HS TROP, CBC ####[address] [address] USATransferrin [Mass/volume] in Serum or PlasmaOrdered By: Akash Mccartney on 94-52-6585Oxyqfrsspmr [Mass/Vol]146 mg/gBJld053-590NofeutfcbOhiohealth O'Bleness HospitalComment on above:Order Comment: FASTING YPerformed By: #### ELDER, PTT, CMP, FE and TIBC, PT, A1C WTH eA, LIPID, MG, [id number], HS TROP, CBC ## ##[address] [address] [place] Triglyceride [Mass/volume] in Serum or PlasmaOrdered By: Akash Mccartney on 44-57-6997Vkdvqehazqft [Mass/Vol]57 mg/dL0-149[facility] Comment on above:TRIG ATP III CLASSIFICATIONTRIG less than 150 mg/dL NormalTRIG 150-199 mg/dL Borderline highTRIG 200-500 mg/dL High TRIG greater than 500 mg/dL Very highStandard traceable to the Center for Disease Conrtrol and Prevention (CDC) test method.Troponin I High Sensitivityon 07-40-7987Vlshkrvx I High Tjjxkqtumnk00Xeafys7-01Xcm [facility] Physician GroupComment on above:Result Comment: The Troponin units of report have been changed to meet the Chest Pain Accreditationrequirement, element EC5.M1l2. Troponin units are changed from pg/ml to ng/L. Also, the decimal is removed and results are in whole numbers.PERFORMED BY:[address] GOLDSTEINDaneAMEENABRONX, [place] [phone] MEDICAL DIRECTORMARY SONI M.D.Performed By: #### ELDER, PTT, CMP, FE and TIBC, PT, A1C WTH eA, LIPID, MG, [id number], HS TROP, CBC ####[address] [address] USATroponin I.cardiac [Mass/volume] in Serum or Plasma by Detection limit <= 0.01 ng/mLOrdered By: Akash Mccartney on 23-81-2178Nzawxalv I.cardiac DL <= 0.01 ng/mL [Mass/Vol]10 ng/L0-[facility] HospitalComment on above:The Troponin units of report have been changed to meet the Chest Pain Accreditation requirement, element EC5.M1l2. Troponin units are changed from pg/ml to ng/L. Also, the decimal is removed and results are in whole numbers. Vit. B12/Folate Profileon 05-00-5525Mhyfra2.1 ng/mLNormal>5.9The Formerly [facility] Physician GroupComment on above:Order Comment: FASTING YResult Comment: Folate reference range: >5.9 ng/ml The WHO technical consultation on folate and vitamin b12 deficiencies has determined that folate concentrations less than 4 ng/ml are considered deficient.PERFORMED BY:[address] [place]AB[place], [place] [phone] MEDICAL DIRECTORMARY SONI M.D.Performed By: #### ELDER, PTT, CMP, FE and TIBC, PT, A1C WTH eA, LIPID, MG, [id number], HS TROP, CBC ####[facility] [place] [address] USAVitamin B12 ser/plasOrdered By: Akash Mccartney on 14-24-5953Ukckgudgv (Vitamin B12) [Mass/Vol]506 pg/pRYtkbnt455-088XgekdxesiOhiohealth O'Bleness HospitalComment on above:Order Comment: FASTING YPerformed By: #### ELDER, PTT, CMP, FE and TIBC, PT, A1C WTH eA, LIPID, MG, [id number], HS TROP, CBC ####[address] [place] [id number] [facility] aPTT in Platelet poor plasma by Coagulation assayOrdered By: Akash Mccartney on 67-10-3743hGMQ Coag (PPP) [Time]38.9 sHigh25.1-36.5FMartin Memorial HospitalComment on above:A hematocrit value greater than 55% may lead to inaccurate results in coagulation testing. Patientshaving hematocrit values >55% require a special collection tube for coagulation studies. Please contact the laboratory at [phone] for redraw instructions.Alanine aminotransferase [Enzymatic activity/volume] in Serum or PlasmaOrdered By: Sree Thao on 89-21-9274UDH [Catalytic activity/Vol]14 U/LNormal7-52[facility] HospitalComment on above:Performed By: #### HS TROP, PTT, PT, CBC, CMP ####[facility] [place] [address] USAAlbumin [Mass/volume] in Serum or Plasma by Bromocresol green (BCG) dye binding metho Ordered By: Sree Thao on 08-22-4214Pmodqjc BCG dye [Mass/Vol]3.7 g/dL 3.5-5.7FMartin Memorial HospitalAlkaline phosphatase [Enzymatic activity/volume] in Serum or PlasmaOrdered By: Sree Thao on 12-12-2024 ALP [Catalytic activity/Vol]98 U/FTvwdky40-229ZafrcaggrOhiohealth O'Bleness Hospital Comment on above:Performed By: #### HS TROP, PTT, PT, CBC, CMP ####[address] [place] [address] USAAppearance of Urine Ordered By: Sree Thao on 60-32-5660Xfbacgstij (U)ClearNormalClear [facility] HospitalComment on above:Order Comment: Name Collection Type:: Chou CatheterPerformed By: #### CUU, ADDONUAPLUS ####[address] [place], [place] USAAspartate aminotransferase [Enzymatic activity/volume] in Serum or PlasmaOrdered By: Sree Thao on 88-91-7141HTA [Catalytic activity/Vol]49 U/OBaio42-44AxobdssaaOhiohealth O'Bleness HospitalComment on above:Performed By: #### HS TROP, PTT, PT, CBC, CMP ####[address] [place] [address] USABNP ser/plasOrdered By: Sree Thao on 21-84-4227Oxbkyhqsuih peptide B (Bld) [Mass/Vol]114.0 pg/mLHigh5-100[facility] HospitalComment on above: Order Comment: ADDED ON TO PREVIOUS REQUISITION PER EDILMA IN [place] Comment: PERFORMED BY:[address] [place], [place] [phone] MEDICAL MARY KATE SONI M.D.Performed By: #### BNP ####[address] [address] USABacteria [Presence] in Urine by AutomatedOrdered By: Sree Thao on 39-33-3450Ottfcrps Auto Ql (U)Rare [HPF]None [facility] HospitalBasophils [#/volume] in Blood by Automated countOrdered By: Sree Thao on 91-16-5199Rsvznxund (Bld) [#/Vol]0.0 10*3/uLNormal0.0-0.2FMartin Memorial HospitalComment on above:Result Comment: PERFORMED BY:[address] [place] [place], [place] [phone] MEDICAL DIRECTORMARIO S NAE M.D.Performed By: #### HS TROP, PTT, PT, CBC, CMP ####[address] [place] Basophils/100 leukocytes in Blood by Automated countOrdered By: Sree Thao on 52-02-4051Wmhlaxqpv/100 WBC (Bld)0.6 %Normal.[facility]leness HospitalComment on above:Performed By: #### HS TROP, PTT, PT, CBC, CMP ####[address] [facility] Bilirubin Test strip Ql (U)Ordered By: Sree Thao on 11-53-4172Ptoamxyfq Ql (U)NegativeNegativeOhiohealth O'Bleness HospitalBilirubin.total [Mass/volume] in Serum or PlasmaOrdered By: Sree Thao on 12-12-2024 Bilirubin [Mass/Vol]0.9 mg/dLNormal0.3-1.0[facility] Comment on above:Performed By: #### HS TROP, PTT, PT, CBC, CMP ####[address] USACT cervical spine wo conon 50-74-1885TL cervical spine wo conNormalThe [facility] Calcium [Mass/volume] in Serum or PlasmaOrdered By: Sree Thao on 97-18-0534Eavfgxe [Mass/Vol]9.1 mg/dLNormal8.6-10.3FMartin Memorial HospitalComment on above:Performed By: #### HS TROP, PTT, PT, CBC, CMP ####[address] USACarbon dioxide, total [Moles/volume] in Serum or PlasmaOrdered By: Sree Thao on 17-31-8041OM5 [Moles/Vol]26.4 mmol/ITjlfjf35.0-31.0[facility] HospitalComment on above:Performed By: #### HS TROP, PTT, PT, CBC, CMP ####[address] [place] Chloride [Moles/volume] in Serum or PlasmaOrdered By: Sree Thao on 78-85-5469Ueaphwff [Moles/Vol]102 mmol/MYrhktz23-897PyuuaxodvOhiohealth O'Bleness HospitalComment on above:Performed By: #### HS TROP, PTT, PT, CBC, CMP ####[address] [address] USAColor of Urine by AutoOrdered By: Sree Master on 41-41-6757Cimah (U)Colorless NormalYellowOhiohealth O'Bleness HospitalComment on above:Order Comment: Name Collection Type:: Chou CatheterPerformed By: #### CUU, ADDONUAPLUS ####[address] USAComplete Blood Count Auto Diffon 85-09-2848Rliq Corpuscular HGB Conc32.5 g/dLNormal 32.5-35.6The Formerly [facility] Physician GroupComment on above:Performed By: #### HS TROP, PTT, PT, CBC, CMP ####[address] [address] USAMonocytes/100 WBC (Bld)18.74 %Normal0.00-20.00The Former[facility] Physician GroupComment on above:Performed By: #### HS TROP, PTT, PT, CBC, CMP ####[address] [address] USANRBC% 0.3 /100{WBC}Normal0-0.5The [facility]ician [facility] HospitalComment on above:Performed By: #### HS TROP, PTT, PT, CBC, CMP ####[address] [address] USAWhite Blood Count5.0 [CFU]/mLNormal4.1-10.5The [facility] HospitalComment on above:Performed By: #### HS TROP, PTT, PT, CBC, CMP ####[address] [address] USAComprehensive Metabolic Panelon 30-53-0025Weykyjo [Mass/Vol]3.7 g/dLNormal 3.5-5.7The [facility] Physician GroupComment on above:Performed By: #### HS TROP, PTT, PT, CBC, CMP ####[address] [place] [address] USACreatinine Clr Calc Mboullpq77.45NoAsheville Specialty Hospital Physician [facility] Comment on above:Result Comment: PERFORMED BY:[address] [place] [place], [place] [phone] MEDICAL DIRECTORMARY SONI M.D.Performed By: #### HS TROP, PTT, PT, CBC, CMP ####[address] [address] [place] GFR/1.73 sq M.predicted MDRD (S/P/Bld) [Vol rate/Area]mL/min/{1.73_m2}NormalThe Formerly [facility] Physician GroupComment on above:Performed By: #### HS TROP, PTT, PT, CBC, CMP ####[address] [address] USACreatinine [Mass/volume] in Serum or PlasmaOrdered By: Sree Thao on 03-96-5424Mjxasgajfq [Mass/Vol]1.09 mg/dLNormal0.70-1.30[facility] HospitalComment on above:Performed By: #### HS TROP, PTT, PT, CBC, CMP ####[address] [address] [place] Dipstick and Microscopicon 71-22-8512Mrkgghaa,UrineRareNormalNone SeenThe Formerly [facility] Physician GroupComment on above:Order Comment: Name Collection Type:: Chou CatheterPerformed By: #### CUU, ADDONUAPLUS ####[address] USABilirubin,UrineNegativeNormalNegative The Former[facility] Physician GroupComment on above:Order Comment: Name Collection Type:: Chou CatheterPerformed By: #### CUU, ADDONUAPLUS ####[address] USAGlucose Ql (U)NormalNormal NormalThe Former[facility] Physician GroupComment on above:Order Comment: Name Collection Type:: Chou CatheterPerformed By: #### CUU, ADDONUAPLUS ####[address] USAHyaline Casts,Wpsmy1-4Khhtoz7-4Icn [facility] Physician GroupComment on above:Order Comment: Name Collection Type:: Chou CatheterPerformed By: #### CUU, ADDONUAPLUS ####[address] USAMucus,UrineRareNormalThe [facility]ly [facility] Physician GroupComment on above:Order Comment: Name Collection Type:: Chou CatheterResult Comment: PERFORMED BY:[address] GOLDSTEINDaneAMEENA, [place] [phone] MEDICAL MARY KATE SONI M.D.Performed By: #### CUU, ADDONUAPLUS ####[address] USANitrite,UrineNegativeNormalNegativeThe Formerly [facility] Physician GroupComment on above:Order Comment: Name Collection Type:: Chou CatheterPerformed By: #### CUU, ADDONUAPLUS ####[address] [address] USAOccult Blood,Urine1+NormalNegativeThe Formerly [facility] Physician GroupComment on above:Order Comment: Name Collection Type:: Chou CatheterResult Comment: PERFORMED BY:[address] [place], [place] [phone] MEDICAL MARY KATE SONI M.D.Performed By: #### CUU, ADDONUAPLUS ####[address] USAProtein,UrineNegativeNormalNegativeThe [facility] Physician GroupComment on above:Order Comment: Name Collection Type:: Chou CatheterPerformed By: #### CUU, ADDONUAPLUS ####[address] USARBC,Btgly0-5Yvotgd2-6Bpn [facility] Physician GroupComment on above:Order Comment: Name Collection Type:: Chou CatheterPerformed By: #### CUU, ADDONUAPLUS ####[address] USASpecificy Weatherby,Urine1.004Normal 1.001-1.030The [facility] Physician GroupComment on above:Order Comment: Name Collection Type:: Chou CatheterPerformed By: #### CUU, ADDONUAPLUS ####[address] [place] Urobilinogen,UrineNormalNormalNormColumbia Miami Heart Institute Physician GroupComment on above:Order Comment: Name Collection Type:: Chou CatheterPerformed By: #### CUU, ADDONUAPLUS ####[address] [address] USAWBC,Fkeef40-56Orspcv6-6Kmg [facility] Physician GroupComment on above: Order Comment: Name Collection Type:: Chou CatheterPerformed By: #### CUU, ADDONUAPLUS ####[address] USAECG 12 lead ECGon 52-52-9552VVS 12 lead ECGSt. Francis Medical CenterEosinophils [#/volume] in Blood by Automated countOrdered By: Sree Thao on 79-14-8794Isnhhemxcxh (Bld) [#/Vol]0.2 10*3/uLNormal0.0-0.45[facility] HospitalComment on above:Performed By: #### HS TROP, PTT, PT, CBC, CMP ####[address] [address] USAEosinophils/100 leukocytes in Blood by Automated countOrdered By: Sree Thao on 12-69-3348Reqedqqumzp/100 WBC (Bld)4.4 %Normal.[facility] HospitalComment on above:Performed By: #### HS TROP, PTT, PT, CBC, CMP ####[address] [address] [place] Epithelial cells.squamous [#/area] in Urine sediment by Automated countOrdered By: Sree Thao on 92-68-4861Bhaoyfqxjr cells.squamous Auto (Urine sed) [#/Area]N/AFMartin Memorial HospitalErythrocyte distribution width [Ratio] by Automated countOrdered By: Sree Thao on 43-15-4318Gdgbnpqktln distribution width (RBC) [Ratio]18.4 %High12.0-14.8[facility] HospitalComment on above:Performed By: #### HS TROP, PTT, PT, CBC, CMP ####[facility] [address] Erythrocytes [#/area] in Urine sediment by Automated countOrdered By: Sree Thao on 50-39-7996KWY Auto (Urine sed) [#/Area]1-2 [HPF]0-4FMartin Memorial HospitalErythrocytes [#/volume] in Blood by Automated countOrdered By: Sree Thao on 92-76-3603BFJ (Bld) [#/Vol]3.34 10*6/uLLow3.90-5.60 [facility] HospitalComment on above:Performed By: #### HS TROP, PTT, PT, CBC, CMP ####[facility] Yll[address] [address] StreetGlomerular filtration rate [Volume Rate/Area] in Serum, Plasma or Blood by CreatinineOrdered By: Sree Thao on 35-44-5569Hgoypbjzhi filtration rate [Volume Rate/Area] in Serum, Plasma or Blood by Creatinine> 60.0 mL/MinOhiohealth O'Bleness HospitalGlucose [Mass/volume] in Serum or Plasma Ordered By: Sree Thao on 76-75-1994Kmdoapn [Mass/Vol]121 mg/aECjbj87-848 [facility] HospitalComment on above:ADA recommended reference rangeRandom Glucose [...] #### HS TROP, PTT, PT, CBC, CMP ####[address] [place] [id number] USAGlucose [Mass/volume] in Urine by Test stripOrdered By: Sree Thao on 99-73-2700Hkeatye Test strip (U) [Mass/Vol]Normal mg/dLNormal [facility]len[facility] HospitalHematocrit [Volume Fraction] of Blood by Automated countOrdered By: Sree Thao on 95-57-4415Jdggvhitga (Bld) [Volume fraction]29.7 %Low38.8-50.0[facility] HospitalComment on above:Performed By: #### HS TROP, PTT, PT, CBC, CMP ####[address] [place] USAHemoglobin Test strip Ql (U) Ordered By: Sree Thao on 26-13-7715Vsqzsfdnio Ql (U)1+HighNegative [facility]leness HospitalHemoglobin [Mass/volume] in BloodOrdered By: Sree Thao on 29-75-6721Etxrmlhnzp (Bld) [Mass/Vol]9.6 g/dLLow13.0-17.0 [facility] HospitalComment on above:Performed By: #### HS TROP, PTT, PT, CBC, CMP ####[place] [address] USAHyaline casts [#/area] in Urine sediment by Automated countOrdered By: Sree Thao on 44-72-1903Asvymta casts Auto (Urine sed) [#/Area]0-8 [LPF]0-8[facility]'Bleness HospitalINR in Platelet poor plasma by Coagulation assayOrdered By: Sree Thao on 46-47-0686JQM Coag (PPP) [Relative time]2.6 {INR}NormalOhiohealth O'Bleness HospitalComment on above: INR Therapeutic Range A) [...] #### HS TROP, PTT, PT, CBC, CMP ####[facility] [address] [place] [address] USAKetones [Presence] in Urine by Test stripOrdered By: Sree Thao on 10-95-7666Hbvgxah Ql (U) NegativeNormalNegativeOhiohealth O'Bleness HospitalComment on above:Order Comment: Name Collection Type:: Chou CatheterPerformed By: #### CUU, ADDONUAPLUS ####[address] [facility], [id number] USALeukocyte esterase [Presence] in Urine by Test stripOrdered By: Sree Thao on 70-52-6312Pyjcmoaey esterase Test strip Ql (U)2+NormalNegative [facility] HospitalComment on above:Order Comment: Name Collection Type:: Chou CatheterPerformed By: #### CUU, ADDONUAPLUS ####[address] [facility], [id number] USALeukocytes [#/area] in Urine sediment by Automated countOrdered By: Sree Thao on 34-44-1796KSD Auto (Urine sed) [#/Area]10-19 [HPF]High0-4FMartin Memorial Hospital Leukocytes [#/volume] corrected for nucleated erythrocytes in Blood by Automated counOrdered By: Sree Thao on 73-69-9636COE corrected for nucl RBC Auto (Bld) [#/Vol]5.0 10*3/uL4.1-10.5FMartin Memorial HospitalLeukocytes [#/volume] in Blood by Automated countOrdered By: Sree Thao on 80-97-1115LDZ (Bld) [#/Vol]5.0 10*3/uLNormal4.1-10.5FMartin Memorial HospitalComment on above:Performed By: #### HS TROP, PTT, PT, CBC, CMP ####[address] Lymphocytes [#/volume] in Blood by Automated countOrdered By: Sree Thao on 08-41-0435Zjausixdukk (Bld) [#/Vol]0.8 10*3/uLLow1.00-4.8[facility] HospitalComment on above:Performed By: #### HS TROP, PTT, PT, CBC, CMP ####[address] Lymphocytes/100 leukocytes in Blood by Automated countOrdered By: Sree Thao on 87-30-4105Qegkmdhswtm/100 WBC (Bld)15.9 %Normal.[facility]len[facility] HospitalComment on above:Performed By: #### HS TROP, PTT, PT, CBC, CMP ####[address] [place] [address] [facility] [Entitic mass] by Automated countOrdered By: Sree Thao on 23-76-9873QTR (RBC) [Entitic mass]28.8 llDgnpne95.5-35.2FMartin Memorial Hospital Comment on above:Performed By: #### HS TROP, PTT, PT, CBC, CMP ####[address] [place] [address] [facility] Auto (RBC) [Mass/Vol]Ordered By: Sree Thoa on 35-13-2082CAQE (RBC) [Mass/Vol]32.5 g/dL32.5-35.6FMorrow County HospitalV [Entitic volume] by Automated countOrdered By: Sree Thao on 58-15-1122VZD (RBC) [Entitic vol]88.7 fL Ybyiid98.5-101[facility] HospitalComment on above:Performed By: #### HS TROP, PTT, PT, CBC, CMP ####[address] [place] [address] USAMonocyte distribution width [Entitic volume] in Blood by AutomatedOrdered By: Sree Thao on 82-25-4904Qbxpbmmf distribution width Auto (Bld) [Entitic vol]18.74 %0.00-20.00[facility] HospitalMonocytes [#/volume] in Blood by Automated countOrdered By: Sree Thao on 43-07-6403Wyzmaioyd (Bld) [#/Vol]0.4 10*3/uLNormal0.0-0.8 [facility] HospitalComment on above:Performed By: #### HS TROP, PTT, PT, CBC, CMP ####[place] [address] USAMonocytes/100 leukocytes in Blood by Automated countOrdered By: Sree Thao on 57-59-2849Fnzntioay/100 WBC (Bld)7.5 %Normal.[facility] HospitalComment on above:Performed By: #### HS TROP, PTT, PT, CBC, CMP ####[place] [address] USAMucus [Presence] in Urine by AutomatedOrdered By: Sree Thao on 56-97-1844Asvwq Auto Ql (U)Rare [LPF][facility] Neutrophils [#/volume] in Blood by Automated countOrdered By: Sree Thao on 76-08-0896Pvoljrivmfx (Bld) [#/Vol]3.5 10*3/uLNormal1.8-7.7FMartin Memorial HospitalComment on above:Performed By: #### HS TROP, PTT, PT, CBC, CMP ####[address] [address] [place] Neutrophils/100 leukocytes in Blood by Automated countOrdered By: Sree Thao on 69-73-3004Fpoldkocced/100 WBC (Bld)71.6 %Normal.[facility]leness HospitalComment on above:Performed By: #### HS TROP, PTT, PT, CBC, CMP ####[address] [address] [place]ANitrite Test strip Ql (U)Ordered By: Sree Thao on [id number] Ql (U) NegativeNegativeOhiohealth O'Bleness HospitalNo Panel InformationOrdered By: Sree Thao on [id number] Creatinine Clearance (Chem51.45 [facility]len[facility] HospitalNucleated erythrocytes [Presence] in Blood by Automated countOrdered By: Sree Thao on 26-98-8263Zzyhriizk RBC Auto Ql (Bld)0.3 /100{WBC}0-0.5FMartin Memorial HospitalPartial Thromboplastin Timeon 19-23-7933mYBW Coag (Bld) [Time]38.4 sHigh25.1-36.5The Formerly [facility] Physician GroupComment on above:Result Comment: A hematocrit value greater than 55% may lead to inaccurate results in coagulation testing. Patients having hematocrit values >55% require a special collection tube for coagulation s tudies. Please contact the laboratory at [phone] for redraw instructions.PERFORMED BY:[address] [place], [place] [phone] MEDICAL DIRECTORMARY SONI M.D.Performed By: #### HS TROP, PTT, PT, CBC, CMP ####[address] [address] USAPlatelet mean volume [Entitic volume] in Blood by Automated countOrdered By: Sree Thao on 65-06-1669Mftrolhk mean volume (Bld) [Entitic vol]7.8 fLNormal6.6-10.1FMartin Memorial HospitalComment on above:Performed By: #### HS TROP, PTT, PT, CBC, CMP ####[address] [address] [place] Platelets [#/volume] in Blood by Automated countOrdered By: Sree Thao on 78-48-6458Rcfjljelr (Bld) [#/Vol]229 10*3/rMHvyevb036-188RqbingufxOhiohealth O'Bleness HospitalComment on above:Performed By: #### HS TROP, PTT, PT, CBC, CMP ####[address] [address] [place] Potassium [Moles/volume] in Serum or PlasmaOrdered By: Sree Thao on 81-26-5684Muzjixqgy [Moles/Vol]3.6 mmol/LNormal3.5-5.1FMartin Memorial HospitalComment on above:Hemolysis is present at a level that could interfere with the result.Contact lab if redraw is requiredResult Comment: Hemolysis is present at a level that could interfere with the result. Contact lab if redraw is requiredPerformed By: #### HS TROP, PTT, PT, CBC, CMP ####[address] [place] [address] USAProtein Test strip (U) [Mass/Vol]Ordered By: Sree Thao on 69-51-4870Syascae (U) [Mass/Vol] NegativeNegativeOhiohealth O'Bleness HospitalProtein [Mass/volume] in Serum or PlasmaOrdered By: Sree Thao on 21-98-3301Ecqegeb [Mass/Vol]6.9 g/dL Normal6.4-8.9[facility]'Bleness HospitalComup health system on above:Performed By: #### HS TROP, PTT, PT, CBC, CMP ####[address] [address] USAProthrombin time (PT)Ordered By: Sree Thao on 57-53-2504EJ Coag (PPP) [Time]28.3 sHigh9.0-12.9Ohio[facility] O'Bleness HospitalComment on above:A hematocrit value greater than 55% may lead to inaccurate results in coagulation testing. Patientshaving hematocrit values >55% require a special collection tube for coagulation studies. Please contact the laboratory at [phone] for redraw instructions.Result Comment: A hematocrit value greater than 55% may lead to inaccurate results in coagulation testing. Patients having hematocrit values >55% require a special collection tube for coagulation studies. Please contact the laboratory at [phone] for redraw instructions.Performed By: #### HS TROP, PTT, PT, CBC, CMP ####[facility] [place] [address] USASerum globulin measurement by calculation (mass/volume)Ordered By: Sree Thao on 03-44-0742Loayocam (S) [Mass/Vol]3.2 g/dLNormalOhiohealth O'Bleness Hospital Comment on above:Performed By: #### HS TROP, PTT, PT, CBC, CMP ####[address] [address] USASerum or plasma albumin/globulin mass ratioOrdered By: Sree Thao on 12-12-2024 Albumin/Globulin [Mass ratio]1.2 {ratio}NormalOhiohealth O'Bleness Hospital Comment on above:Performed By: #### HS TROP, PTT, PT, CBC, CMP ####[address] [address] USASerum or plasma anion gap determinationOrdered By: Sree Thao on 36-50-4805Hnsiq gap [Moles/Vol]11.2 mmol/LNormal6.0-15.0Ohio[facility] O'Bleness HospitalComment on above:Performed By: #### HS TROP, PTT, PT, CBC, CMP ####[address] [address] USASodium [Moles/volume] in Serum or PlasmaOrdered By: Sree Thao on 06-73-0322Xclrlc [Moles/Vol]136 mmol/TEhsudo764-927HrodzwkqlOhiohealth O'Bleness HospitalComment on above:Performed By: #### HS TROP, PTT, PT, CBC, CMP ####[address] [address] USASpecific gravity Test strip (U) [Rel density] Ordered By: Sree Thao on 06-11-0431Shpkxebd gravity (U) [Rel density] 1.0041.001-1.030Ohiohealth O'Bleness HospitalTroponin I High Sensitivityon 08-79-0253Wtrvlkpo I High Thyfwnilpra93Nhanrq1-75Vgv [facility] Comment on above:Result Comment: The Troponin units of report have been changed to meet the Chest Pain Accreditationrequirement, element EC5.M1l2. Troponin units are changed from pg/ml to ng/L. Also, the decimal is removed and results are in whole numbers.PERFORMED BY:[address] [place], [place] [phone] MEDICAL DIRECTORMARY SONI M.D.Performed By: #### HS TROP, PTT, PT, CBC, CMP ####[facility] [place] [address] USATroponin I.cardiac [Mass/volume] in Serum or Plasma by Detection limit <= 0.01 ng/mLOrdered By: Sree Thao on 08-62-2312Xopdivbw I.cardiac DL <= 0.01 ng/mL [Mass/Vol]10 ng/L0-20Ohio[facility] O'Bleness HospitalComment on above:The Troponin units of report have been changed to meet the Chest Pain Accreditation requirement, element EC5.M1l2. Troponin units are changed from pg/ml to ng/L. Also, the decimal is removed and results are in whole numbers.Urea nitrogen [Mass/volume] in Serum or Plasma Ordered By: Sree Thao on 45-72-3813Xhaa nitrogen [Mass/Vol]16 mg/dL Normal7-Ohio[facility] O'Bleness HospitalComment on above:Performed By: #### HS TROP, PTT, PT, CBC, CMP ####[facility] [place] [address] USAUrine Cultureon 21-38-6063Nmkbebjc identified Cx Nom (U)NormalThe Formerly Park [facility] Health Physician GroupComment on above:Performed By: #### CUU, ADDONUAPLUS ####[address] USAUrine cultureOrdered By: Sree Thao on 02-25-2203Ecgkdivt identified Cx Nom (U)Klebsiella pneumoniae (ESBL)AbnormalOhiohealth O'Bleness Hospital Urobilinogen Test strip (U) [Mass/Vol]Ordered By: Sree Thao on 51-89-1540Anmtpvxescot (U) [Mass/Vol]Normal mg/dLNormalOhiohealth O'Bleness HospitalX-ray reportOrdered By: Shaquille Mahoney on 38-80-4086Frzvu report [facility] [address] [address] [place] [address] XRay Report Signed Patient: Tavo Wallis Carson Murray MR# : [id number] : 1940 Acct:[id number] Age/Sex: 84 / M ADM Date: 5 Loc: ER Room: Type: [facility] ER Attending Dr: Copies to: Sree [...] Mahoney M.D. 12/12/2024 1:46 PM Dictation Location: [place] [address] Transcribed By: [facility] 12/12/24 1346 Dictated By: Shaquille Mahoney II, MD 12/12/24 1342 Signed By: 12/12/24 1346 [facility] Work Phone: Study reportOhiohealth O'Bleness Hospital Work Phone: XR chest 2V*on 66-97-3168CE chest 2V*NormalThe Formerly [facility] Physician GroupaPTT in Platelet poor plasma by Coagulation assay Ordered By: Sree Thao on 28-26-4713nXXX Coag (PPP) [Time]38.4 sHigh 25.1-36.5FMartin Memorial HospitalComment on above:A hematocrit value greater than 55% may lead to inaccurate results in coagulation testing. Patients having hematocrit values >55% require a special collection tube for coagulation studies. Please contact the laboratory at [phone] for redraw instructions. pH of Urine by Test stripOrdered By: Sree Thao on 08-76-9765oA (U)5.5 [pH]Normal5.0-9.0Ohio[facility] O'Bleness HospitalComment on above:Order Comment: Name Collection Type:: Chou CatheterPerformed By: #### CUU, ADDONUAPLUS ####[facility] [address] [place], [place] [facility] CENTERMR lumbar spine wo/w conon 79-98-9964TU lumbar spine wo/w conNormalThe Formerly [facility] Physician GroupMagnetic resonance imaging reportOrdered By: Shaquille Mahoney on 18-41-7148Ydtck reportST. [facility] [address] [place] [address] [place] [address] MRI Report Signed Patient: Tavo Wallis Jr MR# : [id number] : 1940 Acct:[id number] Age/Sex: 84 / M ADM Date: 5 Loc: MR Room: Type: [facility] Attending Dr: Keely Montoya APRN Copies to: [...] Mahoney M.D. 12/04/2024 1:30 PM Dictation Location: [place] [address] Transcribed By: NOLVIA 12/04/24 1330 Dictated By: Shaquille Mahoney II, MD 12/04/24 1323 Signed By: 12/04/24 1330 [facility] Work Phone: ct head/brain wo conon 32-22-5342SQ head/brain wo con NormalThe Formerly [facility] Health Physician GroupCT lumbar spine wo conon 20-09-5506BA lumbar spine wo conNormalThe Formerly [facility] Physician GroupX-ray reportOrdered By: Esa Cardoso on 39-71-2205Lbdqv reportST. [facility] [place] [address] [place], [place] [address] XRay Report Signed Patient: Tavo Wallis Jr MR# : [id number] : 1940 Acct:[id number] Age/Sex: 84 / M ADM Date: 5 Loc: CT Room: Type: [facility] Attending Dr: Jovany Stovall MD Copies to: [...] Cardoso M.D. 10/31/2024 5:40 PM Dictation Location: [facility]--20 Transcribed By: [facility] 10/31/241739 Dictated By: Esa Cardoso DO 10/31/241734 Signed By: 10/31/241739 [facility]leness HospitalXR lumbar spine 6V w bendingon 46-03-2043RI lumbar spine 6V w bendingNoAsheville Specialty Hospital Physician GroupBasic Metabolic Panelon 35-29-4944Jqetuorgkj Clr Calc Xiwvigzb99.92NoAsheville Specialty Hospital Physician GroupComment on above:Performed By: #### GOMEZ DOMINGUEZ, MG ####[address] [address] USAGFR/1.73 sq M.predicted MDRD (S/P/Bld) [Vol rate/Area]55.532 mL/min/{1.73_m2}NormalThe Formerly Park Ridge Health Physician GroupComment on above:Performed By: #### GOMEZ DOMINGUEZ, MG ####[address] [address] USACalcium [Mass/volume] in Serum or PlasmaOrdered By: Franck Gagnon on 99-73-4329Paummql [Mass/Vol]8.6 mg/dL Normal8.6-10.3FMartin Memorial HospitalComment on above:Performed By: #### GOMEZ DOMINGUEZ, MG ####[address] [address] USACarbon dioxide, total [Moles/volume] in Serum or PlasmaOrdered By: Franck Gagnon on 95-93-3056UN9 [Moles/Vol]27.5 mmol/TXpioob89.0-31.0Ohio[facility] O'Bleness HospitalComment on above:Performed By: #### GOMEZ DOMINGUEZ, MG ####[address] [address] [place] Chloride [Moles/volume] in Serum or PlasmaOrdered By: Franck Gagnon on 10-08-2024 Chloride [Moles/Vol]98 mmol/OSqpaeg78-912ZqhzqrecqOhiohealth O'Bleness Hospital Comment on above:Performed By: #### GOMEZ DOMINGUEZ, MG ####[address] [address] USACreatinine [Mass/volume] in Serum or PlasmaOrdered By: Franck Gagnon on 27-55-0363Rgdkwnjtee [Mass/Vol]1.28 mg/dLNormal0.70-1.30[facility]'Bleness HospitalComment on above:Performed By: #### GOMEZ DOMINGUEZ, MG ####[address] [address] USAErythrocyte distribution width [Ratio] by Automated countOrdered By: Franck Gagnon on 06-85-1406Klkuuxvvwhj distribution width (RBC) [Ratio]17.7 %High12.0-14.8Ohio[facility] O'Bleness HospitalComment on above: Performed By: #### GOMEZ DOMINGUEZ MG ####[facility] [place] [address] USAErythrocytes [#/volume] in Blood by Automated count Ordered By: Franck Gagnon on 06-66-2739LWC (Bld) [#/Vol]2.63 10*6/uLLow3.90-5.60 [facility]'Bleness HospitalComment on above:Performed By: #### GOMEZ DOMINGUEZ MG ####[address] [place] [address] [place] Glucose [Mass/volume] in Serum or PlasmaOrdered By: Franck Gagnon on 10-08-2024 Glucose [Mass/Vol]95 mg/hGSuzale59-852EhuvqrnggOhiohealth O'Bleness HospitalComment on above:ADA recommended reference rangeRandom Glucose [...] reference rangePerformed By: #### GOMEZ DOMINGUEZ MG ####[address] [place] [address] USAHematocrit [Volume Fraction] of Blood by Automated countOrdered By: Franck Gagnon on 19-35-5561Zjfcctsijg (Bld) [Volume fraction]24.1 %Low38.8-50.0Ohio[facility] O'Bleness HospitalComment on above: Performed By: #### GOMEZ DOMINGUEZ MG ####[address] [place] [address] USAHemoglobin [Mass/volume] in BloodOrdered By: Franck Gagnon on 84-46-0010Yjbdxuouci (Bld) [Mass/Vol]8.0 g/dLLow13.0-17.0Ohio[facility] O'Bleness HospitalComment on above:Performed By: #### GOMEZ DOMINGUEZ MG ####[address] Hemogram CBC Without Diffon 46-03-7306Eeer Corpuscular HGB Conc33.2 g/dLNormal 32.5-35.6The Formerly [facility] Health Physician GroupComment on above:Performed By: #### GOMEZ DOMINGUEZ, MG ####[address] StreetWhite Blood Count6.0 [CFU]/mLNormal4.1-10.5The [facility] Comment on above:Performed By: #### GOMEZ DOMINGUEZ MG ####[address] StreetLeukocytes [#/volume] corrected for nucleated erythrocytes in Blood by Automated counOrdered By: Franck Gagnon on 51-69-2871DTD corrected for nucl RBC Auto (Bld) [#/Vol]6.0 10*3/uL 4.1-10.5FDetwiler Memorial Hospital [Entitic mass] by Automated count Ordered By: Franck Gagnon on 47-96-1647UAB (RBC) [Entitic mass]30.4 pgNormal 27.5-35.2FMartin Memorial HospitalComment on above:Performed By: #### GOMEZ DOMINGUEZ, MG ####[address] [facility]FAXHC Auto (RBC) [Mass/Vol]Ordered By: Franck Gagnon on 89-29-9028QJCG (RBC) [Mass/Vol]33.2 g/dL32.5-35.6FMorrow County HospitalV [Entitic volume] by Automated countOrdered By: Franck Gagnon on 83-85-6891QNB (RBC) [Entitic vol]91.5 zENgalyv70.5-101Ohio[facility] O'Bleness HospitalComment on above:Performed By: #### ALBERTO CBCNO, MG ####[address] [place] [address] USAMagnesium [Mass/volume] in Serum or Plasma Ordered By: Franck Gagnon on 88-56-7183Xjjjkgyyo [Mass/Vol]2.1 mg/dLNormal1.9-2.7 [facility]Bleness HospitalComment on above:Result Comment: PERFORMED BY:[address] [place], [place] [phone] MEDICAL MARY KATE SONI M.D.Performed By: #### CORA DOMINGUEZNO, MG ####[address] [place] [address] USANo Panel InformationOrdered By: Franck Gagnon on 60-79-2399Tyappwxdf GFR (CKD-EPI)55.532 mL/[facility]Ph[facility] Creatinine Clearance (Chem40.92[facility]55.532 mL/[facility]40.92[facility]'Bleness HospitalPlatelet mean volume [Entitic volume] in Blood by Automated countOrdered By: Franck Gagnon on 62-58-3410Olwbhkiv mean volume (Bld) [Entitic vol]7.5 fLNormal6.6-10.1FMartin Memorial HospitalComment on above:Result Comment: PERFORMED BY:[address] [place], [place] [phone] MEDICAL MARY KATE SONI M.D.Performed By: #### ALBERTO, CORANO, MG ####[address] [address] [place] Platelets [#/volume] in Blood by Automated countOrdered By: Franck Gagnon on 88-70-2958Pphhyjbtu (Bld) [#/Vol]173 10*3/hSOinyqe393-240YsckqmxmsOhiohealth O'Bleness HospitalComment on above:Performed By: #### BMP, CBCNO, MG ####[address] [place] [address] USAPotassium [Moles/volume] in Serum or PlasmaOrdered By: Franck Gagnon on 05-02-4520Hjreqshxy [Moles/Vol]4.1 mmol/LNormal3.5-5.1FMartin Memorial HospitalComment on above:Performed By: #### GOMEZ DOMINGUEZ, MG ####[address] [place] [address] USASerum or plasma anion gap determinationOrdered By: Franck Gagnon on 35-30-6925Fbaxm gap [Moles/Vol]9.6 mmol/LNormal6.0-15.0 [facility]leness HospitalComment on above:Performed By: #### GOMEZ DOMINGUEZ, MG ####[address] [address] [place] Sodium [Moles/volume] in Serum or PlasmaOrdered By: Franck Gagnon on 10-08-2024 Sodium [Moles/Vol]131 mmol/WUai679-387VddxtfyatOhiohealth O'Bleness HospitalComment on above:Performed By: #### GOMEZ DOMINGUEZ, MG ####[address] [address] USAUrea nitrogen [Mass/volume] in Serum or PlasmaOrdered By: Franck Gagnon on 79-85-3558Klqx nitrogen [Mass/Vol]20 mg/dL Normal7-25[facility]'Bleness HospitalComment on above:Performed By: #### GOMEZ DOMINGUEZ, MG ####[address] [address] USAAppearance of UrineOrdered By: Franck Gagnon on 45-94-9487Kagpjjdnhv (U) CloudyCritically abnormalCleMemorial Health System Marietta Memorial HospitalComment on above: Order Comment: Name Collection Type:: Chou CatheterPerformed By: #### CUU, ADDONUAPLUS ####[address] USABacteria [Presence] in Urine by AutomatedOrdered By: Franck Gagnon on 06-58-1661Qmdmurar Auto Ql (U)Rare [HPF]None SeenOhiohealth O'Bleness HospitalBilirubin Test strip Ql (U)Ordered By: Franck Gagnon on 72-58-3372Qgqyfpugu Ql (U)NegativeNegativeOhiohealth O'Bleness HospitalCT head/brain wo conon 94-96-6877XQ head/brain wo conNormalMayo Clinic Florida Physician GroupCT head/brain wo conNormalMayo Clinic Florida Physician GroupColor of Urine by AutoOrdered By: Franck Gagnon on 02-62-2124Qvgye (U)YellowNormalYellowOhiohealth O'Bleness HospitalComment on above:Order Comment: Name Collection Type:: Chou Catheter Performed By: #### CUU, ADDONUAPLUS ####[address] USADipstick and Microscopicon 84-21-2420Bssehfuo,Urine RareNormalNone SeenThe Formerly [facility] Physician GroupComment on above:Order Comment: Name Collection Type:: Chou CatheterPerformed By: #### CUU, ADDONUAPLUS ####[address] [place] Bilirubin,UrineNegativeNormalNegativeMayo Clinic Florida Physician GroupComment on above:Order Comment: Name Collection Type:: Chou CatheterPerformed By: #### CUU, ADDONUAPLUS ####[address] [address] USAGlucose Ql (U)NormalNormalNormalThe [facility] Physician GroupComment on above:Order Comment: Name Collection Type:: Chou CatheterPerformed By: #### CUU, ADDONUAPLUS ####[address] [address] USAHyaline Casts,Mtfby0-6Gpfoae5-4Mcw [facility] Physician GroupComment on above:Order Comment: Name Collection Type:: Chou CatheterPerformed By: #### CUU, ADDONUAPLUS ####[address] [address] USAMucus,UrineRareNormalMayo Clinic Florida Physician GroupComment on above: Order Comment: Name Collection Type:: Chou CatheterResult Comment: PERFORMED BY:[address] [place] [place], [place] [phone] MEDICAL DIRECTORMARY SONI M.D.Performed By: #### CUU, ADDONUAPLUS ####[address], [place] USANitrite,UrineNegativeNormalNegativeMayo Clinic Florida Physician GroupComment on above:Order Comment: Name Collection Type:: Chou CatheterPerformed By: #### CUU, ADDONUAPLUS ####[address] [address] USAOccult Blood,Urine3+NormalNegativeThe Formerly [facility] Physician GroupComment on above:Order Comment: Name Collection Type:: Chou CatheterResult Comment: PERFORMED BY:[place] [address] [place], [place] [phone] MEDICAL DIRECTORMARY SONI M.D.Performed By: #### CUU, ADDONUAPLUS ####[address] USARBC,UrineInnumerableNormal0-4The [facility] Physician GroupComment on above:Order Comment: Name Collection Type:: Chou Catheter Performed By: #### CUU, ADDONUAPLUS ####[address] USASpecificy Weatherby,Urine1.512Vczryw6.001-1.030The [facility] Physician GroupComment on above:Order Comment: Name Collection Type:: Chou CatheterPerformed By: #### CUU, ADDONUAPLUS ####[address] [place] USAUrobilinogen,UrineNormalNormalNormal The [facility] Physician GroupComment on above:Order Comment: Name Collection Type:: Chou CatheterPerformed By: #### CUU, ADDONUAPLUS ####[address] USAWBC,UrineInnumerableNormal0-4 The [facility] Physician GroupComment on above:Order Comment: Name Collection Type:: Chou CatheterPerformed By: #### CUU, ADDONUAPLUS ####[address] USAEpithelial cells.squamous [#/area] in Urine sediment by Automated countOrdered By: Franck Gagnon on 12-98-2542Nqvftdsfbx cells.squamous Auto (Urine sed) [#/Area]N/AFMartin Memorial HospitalErythrocytes [#/area] in Urine sediment by Automated countOrdered By: Franck Gagnon on 20-38-3868NCJ Auto (Urine sed) [#/Area] Innumerable [HPF]High0-4FMartin Memorial HospitalGlucose [Mass/volume] in Urine by Test stripOrdered By: Franck Gagnon on 70-51-9987Dnbwvqa Test strip (U) [Mass/Vol]Normal mg/dLNormalOhiohealth O'Bleness HospitalHemoglobin Test strip Ql (U)Ordered By: Franck Gagnon on 05-92-2708Woidxjsiro Ql (U)3+High NegativeOhiohealth O'Bleness HospitalHemogram CBC Without Diffon 10-07-2024 Erythrocyte distribution width (RBC) [Ratio]17.6 %High12.0-14.8The [facility] Physician GroupComment on above:Performed By: #### CBCNO ####[place] [address] USAHematocrit (Bld) [Volume fraction]27.2 %Low38.8-50.0The [facility] Physician GroupComment on above: Performed By: #### CBCNO ####[place] [address] USAHemoglobin (Bld) [Mass/Vol]8.9 g/dLLow13.0-17.0The [facility] Physician GroupComment on above:Performed By: #### CBCNO ####[place] [address] USAMCH (RBC) [Entitic mass]30.2 caCygzhd61.5-35.2The [facility] Physician GroupComment on above: Performed By: #### CBCNO ####[place] [address] USAMCV (RBC) [Entitic vol]92.6 oFWkijey62.5-101The [facility]ician [facility] HospitalComment on above:Performed By: #### CBCNO ####[place] [address] USAMean Corpuscular HGB Conc32.6 g/rYBchsvx85.5-35.6The [facility]ician [facility] HospitalComment on above: Performed By: #### CBCNO ####[place] [address] USAPlatelet mean volume (Bld) [Entitic vol]7.8 fLNormal 6.6-10.1The [facility]ician [facility] HospitalComment on above:Result Comment: PERFORMED BY:[address] [place], [place] [phone] MEDICAL DIRECTORMARY SONI M.D.Performed By: #### CBCNO ####[place] [address] [place] Platelets (Bld) [#/Vol]177 10*3/qAKlcxac937-201Dvt [facility] Comment on above:Performed By: #### CBCNO ####[place] [address] USARBC (Bld) [#/Vol]2.94 10*6/uLLow3.90-5.60The [facility]ician [facility] HospitalComment on above:Performed By: #### CBCNO ####[place] [address] USAWhite Blood Count6.7 [CFU]/mLNormal4.1-10.5The [facility]ician [facility] HospitalComment on above:Performed By: #### CBCNO ####[place] [address] USAHyaline casts [#/area] in Urine sediment by Automated countOrdered By: Franck Gagnon on 90-82-3743Clonnso casts Auto (Urine sed) [#/Area]0-8 [LPF]0-8 [facility] HospitalKetones [Presence] in Urine by Test strip Ordered By: Franck Gagnon on 52-58-5012Nfonptf Ql (U)TraceNormalNegMcCullough-Hyde Memorial HospitalComment on above:Order Comment: Name Collection Type:: Chou CatheterPerformed By: #### CUU, ADDONUAPLUS ####[address] [place], [place] USALeukocyte esterase [Presence] in Urine by Test stripOrdered By: Franck Gagnon on 48-10-0065Ecwhjivtd esterase Test strip Ql (U)3+NormalNegMcCullough-Hyde Memorial HospitalComment on above: Order Comment: Name Collection Type:: Chou CatheterPerformed By: #### CUU, ADDONUAPLUS ####[address] USALeukocytes [#/area] in Urine sediment by Automated countOrdered By: Franck Gagnon on 08-43-5899BRC Auto (Urine sed) [#/Area]Innumerable [HPF]High0-4 [facility] HospitalMucus [Presence] in Urine by AutomatedOrdered By: Franck Gagnon on 95-94-0152Elhhm Auto Ql (U)Rare [LPF][facility]len[facility] HospitalNitrite Test strip Ql (U)Ordered By: Franck Gagnon on 10-07-2024 Nitrite Ql (U)NegativeNegMcCullough-Hyde Memorial HospitalProtein [Mass/volume] in Urine by Test stripOrdered By: Franck Gagnon on 10-07-2024 Protein (U) [Mass/Vol]100 mg/dLNoThe [facility] Comment on above:Order Comment: Name Collection Type:: Chou CatheterPerformed By: #### CUU, ADDONUAPLUS ####[address] USASpecific gravity Test strip (U) [Rel density]Ordered By: Franck Gagnon on 78-04-3832Jogfbjza gravity (U) [Rel density]1.0281.001-1.030 [facility]len[facility] HospitalUrine Cultureon 35-44-7396Voejunon identified Cx Nom (U)No Growth 2 Days PERFORMED BY: [facility] [address] [place] [address] PATHOLOGIST [employer] SALES REPRESENTATIVE MARY SONI M.D.[facility] Physician GroupComment on above: Performed By: #### CUU, ADDONUAPLUS ####[address] USAUrine cultureOrdered By: Franck Gagnon on 10-07-2024 Bacteria identified Cx Nom (U)No Growth 2 DaysOhiohealth O'Bleness Hospital Urobilinogen Test strip (U) [Mass/Vol]Ordered By: Franck Gagnon on 10-07-2024 Urobilinogen (U) [Mass/Vol]Normal mg/dLNormalOhiohealth O'Bleness HospitalX- ray reportOrdered By: Shaquille Mahoney on 95-62-8524Qxntz reportOhiohealth O'Bleness Hospital Work Phone: XR chest 1V portableon 31-33-6162IZ chest 1V portable NormalThe [facility]ly [facility] Physician [facility] County General HospitalpH of Urine by Test stripOrdered By: Franck Gagnon on 34-51-1983zV (U)5.5 [pH]Normal5.0-9.0[facility] Comment on above:Order Comment: Name Collection Type:: Chou CatheterPerformed By: #### CUU, ADDONUAPLUS ####[address] USABlood Cultureon 88-43-0385Mwfdalff identified Cx Nom (Bld)NO GROWTH 5 DAYS PERFORMED BY: [facility] [address] [place] [address] PATHOLOGIST [employer] SALES REPRESENTATIVE MARY SONI M.D.NormalMayo Clinic Florida Physician GroupComment on above: Performed By: #### CUBLD ####[address] [address] USABacteria identified Cx Nom (Bld)NO GROWTH 5 DAYS PERFORMED BY: [facility] [address] [place] [address] PATHOLOGIST [employer] SALES REPRESENTATIVE MARY SONI M.D.[facility] Physician GroupComment on above: Performed By: #### CUBLD ####[address] [place] [address] USACT head/brain wo conon 11-76-8354YD head/brain wo conNormalThe [facility]ly [facility] Physician GroupCapillary blood glucose measurement by glucometer (mass/volume)Ordered By: Franck Gagnon on 49-40-6783Rksgujt [Mass/Vol] 102 mg/dLTrinity Health SystemComment on above:Random Glucose Reference Range is dependent on time and content of last meal. Glucose of more than 200 mg/dL in a nonstressed, ambulatory subject supports the diagnosis of Diabetes Mellitus.Result Comment: Random Glucose Reference Range is dependent on time and content of last meal. Glucose of more than 200 mg/dL in a nonstressed, ambulatory subject supports the diagnosis of Diabetes Mellitus.PERFORMED BY:[address] [place], [place] [phone] MEDICAL DIRECTORMARY SONI M.D.Performed By: #### GLULS ####Point of Care testing,Dipstick and MicroscopicOrdered By: Frankie Reynolds on 26-26-4546Wfmijokcap (U)clearNormalClearOhiohealth O'Bleness HospitalComment on above:Order Comment: Name Collection Type:: Chou Catheter Performed By: #### RAGHAVENDRA, CUU ####[facility] Andrew[facility] mart[facility] community hospitalsheliaBR[place], [place] USAKetones Ql (U)NegativeNormalNegMcCullough-Hyde Memorial HospitalComment on above:Order Comment: Name Collection Type:: Chou CatheterPerformed By: #### RAGHAVENDRA, CUU ####[address] [place] [facility] [place], [place]P[address] USALeukocyte esterase Test strip Ql (U)4+ NormalNegMcCullough-Hyde Memorial HospitalComment on above:Order Comment: Name Collection Type:: Chou CatheterPerformed By: #### OCTAVIANOPLUS, CUU ####[address] [place] [facility] [place], [place] USApH (U) 5.5 [pH]Normal5.0-9.0[facility]ess HospitalComment on above:Order Comment: Name Collection Type:: Chou CatheterPerformed By: #### ADDONUAPLUS, CUU ####[address] [place] Dipstick and Microscopicon 48-20-8999Pheopaop,Urine1+ [HPF]NormalNone SeenThe Formerly [facility] Physician GroupComment on above:Order Comment: Name Collection Type:: Chou CatheterPerformed By: #### ADDONUAPLUS, CUU ####[address] USABilirubin,UrineNegativeNormalNegative [facility] Physician GroupComment on above:Order Comment: Name Collection Type:: Chou CatheterPerformed By: #### ADDONUAPLUS, CUU ####[address] USAColor (U)Light-YellowNormal YellowMayo Clinic Florida Physician GroupComment on above:Order Comment: Name Collection Type:: Chou CatheterPerformed By: #### ADDONUAPLUS, CUU ####[address] USAGlucose Ql (U)NormalNormalNormalThe [facility]ly [facility] Physician GroupComment on above:Order Comment: Name Collection Type:: Chou CatheterPerformed By: #### ADDONUAPLUS, CUU ####[address] [place] [place] Hyaline Casts,UrineNoneNormal0-8The [facility] Physician GroupComment on above: Order Comment: Name Collection Type:: Chou CatheterPerformed By: #### ADDONUAPLUS, CUU ####[address] [address] USAMucus,UrineRareNormalMayo Clinic Florida Physician GroupComment on above: Order Comment: Name Collection Type:: Chou CatheterResult Comment: PERFORMED BY:[address] [place], [place] [phone] MEDICAL DIRECTORMARADILENE S NAE M.D.Performed By: #### ADDONUAPLUS, CUU ####[address] [address] USANitrite,UrinePositiveNormalNegativeThe [facility]ly [facility] Physician GroupComment on above:Order Comment: Name Collection Type:: Chou CatheterPerformed By: #### ADDONUAPLUS, CUU ####[address] USAOccult Blood,Urine2+NormalNegativeThe [facility] Comment on above:Order Comment: Name Collection Type:: Chou CatheterResult Comment: PERFORMED BY:[address] [place], [place] [phone] MEDICAL MARY KATE SONI M.D.Performed By: #### ADDONUAPLUS, CUU ####[address] USAProtein,UrineTraceNormalNegativeThe [facility]ly [facility] Physician GroupComment on above:Order Comment: Name Collection Type:: Chou CatheterPerformed By: #### ADDONUAPLUS, CUU ####[address] USARBC,Elhku76-28Jxzkwt8-8Zsa [facility] Physician GroupComment on above:Order Comment: Name Collection Type:: Chou CatheterPerformed By: #### ADDONUAPLUS, CUU ####[address] USASpecificy Weatherby,Urine1.018Normal 1.001-1.030The [facility] Physician GroupComment on above:Order Comment: Name Collection Type:: Chou CatheterPerformed By: #### ADDONUAPLUS, CUU ####[address] [place] Urobilinogen,UrineNormalNormalNormalThe [facility] Physician GroupComment on above:Order Comment: Name Collection Type:: Chou CatheterPerformed By: #### ADDONUAPLUS, CUU ####[facility] [address] [place] [address] USAWBC,Zrzaq80-08Vjvrjp4-5Lli [facility] Physician GroupComment on above: Order Comment: Name Collection Type:: Chou CatheterPerformed By: #### ADDTINO, CUU ####[facility] [address] [place] [address] USALaboratory - Chemistry and Chemistry - challengeOrdered By: Frankie Reynolds on 00-04-0214Ihjcgzqog Ql (U)NegativeOhiohealth O'Bleness Hospital Specific gravity (U) [Rel density]1.018[facility] Laboratory - Microbiology and Antimicrobial susceptibilityOrdered By: Franck Gagnon on 60-79-6289Lpbkyzpy identified Cx Nom (Bld)NO GROWTH [address] [place], [place] [address]Bacteria identified Cx Nom (Bld)NO GROWTH [facility] HospitalLaboratory - Specimen informationOrdered By: Frankie Reynolds on 83-85-9792Fscil (U)lightyellowOhiohealth O'Bleness Hospital Laboratory - UrinalysisOrdered By: Frankie Reynolds on 99-51-4459Rnzznvv Ql (U) PositiveOhiohealth O'Bleness HospitalProtein Ql (U)TraceOhiohealth O'Bleness HospitalMRSA - MSSA Nasal PCRon 19-98-8320LXHV - MSSA Nasal PCRNormalThe [facility]ly [facility] Physician GroupComment on above:Performed By: #### MRSA - MSSA PCR ####[facility] [address] [place] [address] USANo Panel InformationOrdered By: Michele Knight on 00-97-7689Algdk Screen MRSA/MSSA [facility] HospitalNo Panel InformationOrdered By: Franck Gagnon on 05-92-8437NK GROWTH 5 DAYSOhiohealth O'Bleness HospitalNO GROWTH DAYS [facility] HospitalNo Panel InformationOrdered By: Frankie Reynolds on 79-65-9640Rnnty Collection TypeSee commentOhiohealth O'Bleness Hospital Comment on above:naUrine Glucose (UA)NormalOhiohealth O'Bleness Hospital Urine Occult BloodSee commentOhiohealth O'Bleness HospitalComment on above: not doneUrine UrobilinogenNormalHighland District Hospitalee comment [facility] HospitallightyellowOhiohealth O'Bleness Hospital clearOhiohealth O'Bleness HospitalNormalOhiohealth [facility] NegativeOhiohealth O'Bleness Hospital1.018[facility] 5.5FMartin Memorial HospitalTraceOhiohealth O'Bleness Hospital PositiveOhiohealth O'Bleness Hospital4+[facility] Urine Cultureon 35-71-6719Nxqvjglv identified Cx Nom (U)NormalThe Formerly [facility] Physician GroupComment on above:Performed By: #### RAGHAVENDRA, CUU ####[facility] [address] [place], [place] USAUrine cultureOrdered By: Franck Gagnon on 25-59-1512Jcefgkdb identified Cx Nom (U) Enterococcus faecalisAbMercy Health St. Anne HospitalAlanine aminotransferase [Enzymatic activity/volume] in Serum or PlasmaOrdered By: Terence Steele on 97-64-7616WGI [Catalytic activity/Vol]6 U/LLow7-52[facility] HospitalComment on above:Performed By: #### CBC, CMP, PTT, PT ####[facility] [address] [place] [address] USAAlbumin [Mass/volume] in Serum or Plasma by Bromocresol green (BCG) dye binding metho Ordered By: Terence Steele on 51-00-5431Jscarlp BCG dye [Mass/Vol]3.5 g/dL3.5-5.7 [facility] HospitalAlkaline phosphatase [Enzymatic activity/volume] in Serum or PlasmaOrdered By: Terence Steele on 13-08-1079GXW [Catalytic activity/Vol]157 U/SVncq22-268LebqoyetaOhiohealth O'Bleness Hospital Comment on above:Performed By: #### CBC, CMP, PTT, PT ####[facility] [address] [place] [address] USAAspartate aminotransferase [Enzymatic activity/volume] in Serum or PlasmaOrdered By: Terence Steele on 54-26-2212SAQ [Catalytic activity/Vol]16 U/EVczzxr98-92LflngmtuwOhiohealth O'Bleness HospitalComment on above:Performed By: #### CBC, CMP, PTT, PT ####[facility] [address] [place] [address] [place] Basophils [#/volume] in Blood by Automated countOrdered By: Terence Steele on 18-62-1761Qqcmoqjvh (Bld) [#/Vol]0.0 10*3/uLNormal0.0-0.2FMartin Memorial HospitalComment on above:Result Comment: PERFORMED BY:[address] [place], [place] [phone] MEDICAL DIRECTORMARY SONI M.D.Performed By: #### CBC, CMP, PTT, PT ####[address] [address] USABasophils/100 leukocytes in Blood by Automated countOrdered By: Terence Steele on 10-05-2024 Basophils/100 WBC (Bld)0.4 %Normal.[facility] HospitalComment on above:Performed By: #### CBC, CMP, PTT, PT ####[address] [address] USABilirubin.total [Mass/volume] in Serum or PlasmaOrdered By: Terence Steele on 99-47-0364Eotizhhxo [Mass/Vol]0.6 mg/dL Normal0.3-1.0[facility] HospitalComment on above:Performed By: #### CBC, CMP, PTT, PT ####[address] [address] USACT cervical spine wo [facility] 58-06-0619VX cervical spine wo conNSelect Specialty Hospital - Durham Physician GroupCT facial bones wo [facility] hospitalon 25-35-6628RC facial bones wo conNSelect Specialty Hospital - [facility] Physician GroupCT head/brain wo [facility] 86-50-2159PX head/brain wo conNSelect Specialty Hospital - [facility] Physician Group Calcium [Mass/volume] in Serum or PlasmaOrdered By: Terence Steele on 10-05-2024 Calcium [Mass/Vol]9.4 mg/dLNormal8.6-10.3FMartin Memorial Hospital Comment on above:Performed By: #### CBC, CMP, PTT, PT ####[address] [address] USACarbon dioxide, total [Moles/volume] in Serum or PlasmaOrdered By: Terence Steele on 95-56-2059ZV8 [Moles/Vol]25.9 mmol/CXefvql56.0-31.0[facility] HospitalComment on above:Performed By: #### CBC, CMP, PTT, PT ####[address] [address] USAChloride [Moles/volume] in Serum or PlasmaOrdered By: Terence Steele on 17-63-5880Siyswlfa [Moles/Vol]102 mmol/LNormal 98-107[facility] HospitalComment on above:Performed By: #### CBC, CMP, PTT, PT ####[address] [address] USAComplete Blood Count Auto Diffon 96-77-7041Vnod Corpuscular HGB Conc 33.1 g/lEBsrluy81.5-35.6The [facility] Physician GroupComment on above:Performed By: #### CBC, CMP, PTT, PT ####[address] [address] USAMonocytes/100 WBC (Bld)19.41 %Normal0.00-20.00The [facility] Physician GroupComment on above:Performed By: #### CBC, CMP, PTT, PT ####[address] [address] USANRBC% 0.2 /100{WBC}Normal0-0.5The [facility] Physician GroupComment on above:Performed By: #### CBC, CMP, PTT, PT ####[address] [address] USAWhite Blood Count5.7 [CFU]/mLNormal4.1-10.5The [facility] Physician GroupComment on above:Performed By: #### CBC, CMP, PTT, PT ####[address] [address] [place] Comprehensive Metabolic Panelon 14-27-9303Zcuusvk [Mass/Vol]3.5 g/dLNormal 3.5-5.7The [facility] Physician GroupComment on above:Performed By: #### CBC, CMP, PTT, PT ####[address] [place] [address] USACreatinine Clr Calc Xbodcnhf76.79NoAsheville Specialty Hospital Physician Group Comment on above:Result Comment: PERFORMED BY:[address] [place], [place] [phone] MEDICAL DIRECTORMARY SONI M.D.Performed By: #### CBC, CMP, PTT, PT ####[address] [address] USAGFR/1.73 sq M.predicted MDRD (S/P/Bld) [Vol rate/Area]mL/min/{1.73_m2}NormalThe [facility]ly [facility] Physician [facility] HospitalComment on above:Performed By: #### CBC, CMP, PTT, PT ####[address] [place] Creatinine [Mass/volume] in Serum or PlasmaOrdered By: Terence Steele on 03-40-1256Ufmoqiwslx [Mass/Vol]1.11 mg/dLNormal0.70-1.30[facility] HospitalComment on above:Performed By: #### CBC, CMP, PTT, PT ####[address] [address] USAECG 12 lead ECGon 51-02-2627AAR 12 lead ECGAdventHealth Brandon ER Physician [facility] Eosinophils [#/volume] in Blood by Automated countOrdered By: Terence Steele on 10-66-1404Gcbuejuxeno (Bld) [#/Vol]0.3 10*3/uLNormal0.0-0.45[facility] HospitalComment on above:Performed By: #### CBC, CMP, PTT, PT ####[address] [place] Eosinophils/100 leukocytes in Blood by Automated countOrdered By: Terence Steele on 19-12-3120Ascpqdkxnmh/100 WBC (Bld)4.7 %Normal.[facility] HospitalComment on above:Performed By: #### CBC, CMP, PTT, PT ####[address] [address] USAErythrocyte distribution width [Ratio] by Automated countOrdered By: Terence Steele on 30-07-6482Lwzsfczswwq distribution width (RBC) [Ratio]17.5 %High12.0-14.8 [facility] HospitalComment on above:Performed By: #### CBC, CMP, PTT, PT ####[address] [address] USAErythrocytes [#/volume] in Blood by Automated countOrdered By: Terence Steele on 96-62-2296ZIK (Bld) [#/Vol]3.08 10*6/uLLow3.90-5.60[facility] HospitalComment on above:Performed By: #### CBC, CMP, PTT, PT ####[address] [address] USAGlucose [Mass/volume] in Serum or PlasmaOrdered By: Terence Steele on 94-85-6022Qytvcmg [Mass/Vol]105 mg/xKPidj17-372LwzzsqmztOhiohealth O'Bleness HospitalComment on above:Result Comment: Random Glucose Reference Range is dependent on time and content of last meal. Glucose of more than 200 mg/dL in a nonstressed, ambulatory subject supports the diagnosis of Diabetes Mellitus. ADA recommended reference rangePerformed By: #### CBC, CMP, PTT, PT ####[address] [address] USAHematocrit [Volume Fraction] of Blood by Automated countOrdered By: Terence Steele on 04-37-7684Wvxutwekye (Bld) [Volume fraction] 28.3 %Low38.8-50.0[facility] HospitalComment on above:Performed By: #### CBC, CMP, PTT, PT ####[address] [address] USAHemoglobin [Mass/volume] in BloodOrdered By: Terence Steele on 35-09-1514Ygozvqpdov (Bld) [Mass/Vol]9.3 g/dLLow13.0-17.0[facility] HospitalComment on above:Performed By: #### CBC, CMP, PTT, PT ####[address] [place] [address] USAINR in Platelet poor plasma by Coagulation assayOrdered By: Terence Steele on 10-05-2024 INR Coag (PPP) [Relative time]2.4 {INR}NormalOhiohealth O'Bleness Hospital Comment on above:INR Therapeutic Range A) [...] 4.5Performed By: #### CBC, CMP, PTT, PT ####[address] [place] [address] [place] Leukocytes [#/volume] corrected for nucleated erythrocytes in Blood by Automated counOrdered By: Terence Steele on 85-40-7793JCW corrected for nucl RBC Auto (Bld) [#/Vol]5.7 10*3/uL4.1-10.5FMartin Memorial HospitalLeukocytes [#/volume] in Blood by Automated countOrdered By: Terence Steele on 42-85-2221RUZ (Bld) [#/Vol]5.7 10*3/uLNormal4.1-10.5FMartin Memorial HospitalComment on above:Performed By: #### CBC, CMP, PTT, PT ####[address] [place] [address] USALymphocytes [#/volume] in Blood by Automated countOrdered By: Terence Steele on 80-07-0982Krfxjsqlzlr (Bld) [#/Vol] 1.1 10*3/uLNormal1.00-4.8[facility] HospitalComment on above: Performed By: #### CBC, CMP, PTT, PT ####[facility] [address] [place] [address] USALymphocytes/100 leukocytes in Blood by Automated countOrdered By: Terence Steele on 88-54-4925Zlobkavfqdq/100 WBC (Bld) 19.8 %Normal.[facility] HospitalComment on above:Performed By: #### CBC, CMP, PTT, PT ####[address] [address] [facility] [Entitic mass] by Automated countOrdered By: Terence Steele on 42-35-9697XCC (RBC) [Entitic mass]30.3 lyTunzmv69.5-35.2 [facility] HospitalComment on above:Performed By: #### CBC, CMP, PTT, PT ####[address] [address] [facility] FA[facility]HC Auto (RBC) [Mass/Vol]Ordered By: Terence Steele on 97-13-2037RPCB (RBC) [Mass/Vol]33.1 g/dL32.5-35.6FMartin Memorial HospitalMCV [Entitic volume] by Automated countOrdered By: Terence Steele on 50-69-3716WVZ (RBC) [Entitic vol]91.7 wUAtqicj36.5-101[facility] HospitalComment on above:Performed By: #### CBC, CMP, PTT, PT ####[facility] [address] [place] [address] USAMonocyte distribution width [Entitic volume] in Blood by AutomatedOrdered By: Terence Steele on 26-32-0700Wmxbxtvj distribution width Auto (Bld) [Entitic vol]19.41 %0.00-20.00[facility] HospitalMonocytes [#/volume] in Blood by Automated countOrdered By: Terence Steele on 10-32-8555Gezxvzfia (Bld) [#/Vol]0.6 10*3/uLNormal0.0-0.8[facility] HospitalComment on above:Performed By: #### CBC, CMP, PTT, PT ####[facility] [place] [address] [place] Monocytes/100 leukocytes in Blood by Automated countOrdered By: Terence Steele on 91-90-0842Pvqczgygn/100 WBC (Bld)9.9 %Normal.[facility] Comment on above:Performed By: #### CBC, CMP, PTT, PT ####[address] [place] [address] USANeutrophils [#/volume] in Blood by Automated countOrdered By: Terence Steele on 23-23-6816Tameerzcvru (Bld) [#/Vol]3.7 10*3/uLNormal1.8-7.7FMartin Memorial HospitalComment on above:Performed By: #### CBC, CMP, PTT, PT ####[address] [place] [address] USANeutrophils/100 leukocytes in Blood by Automated countOrdered By: Terence Steele on 94-63-3817Lndpbmgkcok/100 WBC (Bld) 65.2 %Normal.[facility] HospitalComment on above:Performed By: #### CBC, CMP, PTT, PT ####[address] [address] USANo Panel InformationOrdered By: Terence Steele on 10-05-2024> 60.0 mL/MinOhiohealth O'Bleness Hospital44.79[facility]'Bleness HospitalNucleated erythrocytes [Presence] in Blood by Automated count Ordered By: Terence Steele on 15-89-6502Pbjybykcv RBC Auto Ql (Bld)0.2 /100{WBC} 0-0.5FMartin Memorial HospitalPartial Thromboplastin Timeon 10-05-2024 aPTT Coag (Bld) [Time]41.0 sHigh25.1-36.5The [facility] Physician GroupComment on above:Result Comment: A hematocrit value greater than 55% may lead to inaccurate results in coagulation testing. Patients having hematocrit values >55% require a special collection tube for coagulation studies. Please contact the laboratory at [phone] for redraw instructions.PERFORMED BY:[address] [place], [place] [phone] MEDICAL DIRECTORMARY SONI M.D.Performed By: #### CBC, CMP, PTT, PT ####[address] [address] [facility] Platelet mean volume [Entitic volume] in Blood by Automated countOrdered By: Terence Steele on 87-74-2757Jjyxxlht mean volume (Bld) [Entitic vol]7.7 fLNormal 6.6-10.1FMartin Memorial HospitalComment on above:Performed By: #### CBC, CMP, PTT, PT ####[address] [address] USAPlatelets [#/volume] in Blood by Automated countOrdered By: Terence Steele on 90-65-5014Aulaqpuhz (Bld) [#/Vol]217 10*3/mJGfetwc560-584IpaomynsaOhiohealth O'Bleness HospitalComment on above:Performed By: #### CBC, CMP, PTT, PT ####[address] [facility] Potassium [Moles/volume] in Serum or PlasmaOrdered By: Terence Steele on 05-35-2268Zzlrxamrr [Moles/Vol]4.2 mmol/LNormal3.5-5.1FMartin Memorial HospitalComment on above:Performed By: #### CBC, CMP, PTT, PT ####[address] [address] USAProtein [Mass/volume] in Serum or PlasmaOrdered By: Terence Steele on 74-22-0583Gqqohga [Mass/Vol]6.7 g/dLNormal6.4-8.9[facility] HospitalComment on above:Performed By: #### CBC, CMP, PTT, PT ####[address] [address] USAProthrombin time (PT)Ordered By: Terence Steele on 58-61-9933YV Coag (PPP) [Time]26.6 sHigh9.0-12.9[facility]len[facility] HospitalComment on above:A hematocrit value greater than 55% may lead to inaccurate results in coagulation testing. Patientshaving hematocrit values >55% require a special collection tube for coagulation studies. Please contact the laboratory at [phone] for redraw instructions.Result Comment: A hematocrit value greater than 55% may lead to inaccurate results in coagulation testing. Patients having hematocrit values >55% require a special collection tube for coagulation studies. Please contact the laboratory at [phone] for redraw instructions.Performed By: #### CBC, CMP, PTT, PT ####[address] [place] [address] USASerum globulin measurement by calculation (mass/volume)Ordered By: Terence Steele on 11-38-1462Fexzjzqv (S) [Mass/Vol]3.2 g/dLNormalOhiohealth O'Bleness HospitalComment on above: Performed By: #### CBC, CMP, PTT, PT ####[address] USASerum or plasma albumin/globulin mass ratio Ordered By: Terence Steele on 87-54-6481Uulazhx/Globulin [Mass ratio]1.1 {ratio} NormalOhiohealth O'Bleness HospitalComup health system on above:Performed By: #### CBC, CMP, PTT, PT ####[address] USASerum or plasma anion gap determinationOrdered By: Terence Steele on 82-49-4823Fkwfy gap [Moles/Vol]13.3 mmol/LNormal6.0-15.0[facility] HospitalComment on above:Performed By: #### CBC, CMP, PTT, PT ####[address] [address] USASodium [Moles/volume] in Serum or PlasmaOrdered By: Terence Steele on 69-79-9046Bbvhrh [Moles/Vol]137 mmol/LAjajnv869-744GoywvuynfOhiohealth O'Bleness HospitalComment on above:Performed By: #### CBC, CMP, PTT, PT ####[address] [address] USAUrea nitrogen [Mass/volume] in Serum or PlasmaOrdered By: Terence Steele on 40-73-6542Nkaj nitrogen [Mass/Vol]18 mg/dL Normal7-25[facility]len[facility] HospitalComment on above:Performed By: #### CBC, CMP, PTT, PT ####[address] [address] USAaPTT in Platelet poor plasma by Coagulation assayOrdered By: Terence Steele on 05-22-2979cFBJ Coag (PPP) [Time]41.0 sHigh25.1-36.5FMartin Memorial HospitalComment on above:A hematocrit value greater than 55% may lead to inaccurate results in coagulation testing. Patientshaving hematocrit values >55% require a special collection tube for coagulation studies. Please contact the laboratory at [phone] for redraw instructions.Basic Metabolic Panelon 22-68-6294QPX/1.73 sq M.predicted MDRD (S/P/Bld) [Vol rate/Area]mL/min/{1.73_m2} NormalThe Formerly [facility] Health Physician GroupComment on above:Performed By: #### CBC, BMP ####[address] [address] [place] Basophils [#/volume] in Blood by Automated countOrdered By: Bhupinder Mcintyre on 24-57-2060Qvcqmpsxg (Bld) [#/Vol]0.0 10*3/uLNormal0.0-0.2FMartin Memorial HospitalComment on above:Result Comment: PERFORMED BY:[address] [place], [place] [phone] MEDICAL MARY KATE SONI M.D.Performed By: #### CBC, BMP ####[address] [address] USABasophils/100 leukocytes in Blood by Automated countOrdered By: Bhupinder Mcintyre on 57-82-3599Ujorlzifd/100 WBC (Bld)1.0 %Normal.[facility]Bleness HospitalComment on above:Performed By: #### CBC, BMP ####[address] [address] USACalcium [Mass/volume] in Serum or PlasmaOrdered By: Bhupinder Mcintyre on 50-73-2878Fagogct [Mass/Vol]8.7 mg/dLNormal8.6-10.3FMartin Memorial HospitalComment on above:Result Comment: PERFORMED BY:[address] [place], [place] [id number] MEDICAL DIRECTORMARY SONI M.D.Performed By: #### CBC, BMP ####[address] [address] USACarbon dioxide, total [Moles/volume] in Serum or PlasmaOrdered By: Bhupinder Mcintyre on 99-65-7247SN2 [Moles/Vol]29.5 mmol/TEnluoo29.0-31.0[facility] HospitalComment on above:Performed By: #### CBC, BMP ####[address] [address] USAChloride [Moles/volume] in Serum or PlasmaOrdered By: Bhupinder Mcintyre on 09-89-7906Gxtfrnqv [Moles/Vol]103 mmol/TVvwprc57-134ArhapspruOhiohealth O'Bleness HospitalComment on above:Performed By: #### CBC, BMP ####[address] [address] [facility] Complete Blood Count Auto Diffon 08-06-5242Wykr Corpuscular HGB Conc32.5 g/dL Liflra26.5-35.6The Formerly [facility] Health Physician GroupComment on above:Performed By: #### CBC, BMP ####[address] [address] USANRBC%0.2 /100{WBC}Normal0-0.5The Formerly [facility] Health Physician GroupComment on above: Performed By: #### CBC, BMP ####[address] [place] [address] USAWhite Blood Count4.5 [CFU]/mLNormal4.1-10.5The [facility] Physician GroupComment on above:Performed By: #### CBC, BMP ####[place] [address] [place] Creatinine [Mass/volume] in Serum or PlasmaOrdered By: Bhupinder Mcintyre on 09-24-2024 Creatinine [Mass/Vol]1.08 mg/dLNormal0.70-1.30[facility] Comment on above:Performed By: #### CBC, BMP ####[place] [address] USAEosinophils [#/volume] in Blood by Automated countOrdered By: Bhupinder Mcintyre on 30-67-6653Tkqqelyrbys (Bld) [#/Vol]0.3 10*3/uLNormal0.0-0.45[facility]len[facility] HospitalComment on above:Performed By: #### CBC, BMP ####[place] [address] USAEosinophils/100 leukocytes in Blood by Automated countOrdered By: Bhupinder Mcintyre on 74-02-3544Bjwtfkxjvyt/100 WBC (Bld)7.2 %Normal.[facility]len[facility] HospitalComment on above:Performed By: #### CBC, BMP ####[place] [address] USAErythrocyte distribution width [Ratio] by Automated countOrdered By: Bhupinder Mcintyre on 09-24-2024 Erythrocyte distribution width (RBC) [Ratio]17.4 %High12.0-14.8[facility]len[facility] HospitalComment on above:Performed By: #### CBC, BMP ####[place] [address] [place] Erythrocytes [#/volume] in Blood by Automated countOrdered By: Bhupinder Mcintyre on 49-30-8417SXI (Bld) [#/Vol]2.99 10*6/uLLow3.90-5.60[facility] HospitalComment on above:Performed By: #### CBC, BMP ####[address] [address] USAGlucose [Mass/volume] in Serum or PlasmaOrdered By: Bhupinder Mcintyre on 08-44-8562Jaanfsk [Mass/Vol]80 mg/dLNormal 70-100Ohio[facility]len[facility] HospitalComment on above:ADA recommended reference rangeRandom Glucose [...] recommended reference rangePerformed By: #### CBC, BMP ####[address] [address] USAHematocrit [Volume Fraction] of Blood by Automated countOrdered By: Bhupinder Mcintyre on 23-54-7056Qezzfmjyfj (Bld) [Volume fraction]27.6 %Low38.8-50.0 [facility]len[facility] HospitalComment on above:Performed By: #### CBC, BMP ####[address] [address] [place] Hemoglobin [Mass/volume] in BloodOrdered By: Bhupinder Mcintyre on 44-67-2239Ggcgnttqky (Bld) [Mass/Vol]9.0 g/dLLow13.0-17.0[facility] HospitalComment on above:Performed By: #### CBC, BMP ####[address] [address] USALeukocytes [#/volume] corrected for nucleated erythrocytes in Blood by Automated counOrdered By: Bhupinder Mcintyre on 87-98-3069LGO corrected for nucl RBC Auto (Bld) [#/Vol]4.5 10*3/uL4.1-10.5FMartin Memorial HospitalLeukocytes [#/volume] in Blood by Automated countOrdered By: Bhupinder Mcintyre on 40-77-8278EOX (Bld) [#/Vol]4.5 10*3/uLNormal4.1-10.5FMartin Memorial HospitalComment on above:Performed By: #### CBC, BMP ####[address] [address] [place] Lymphocytes [#/volume] in Blood by Automated countOrdered By: Bhupinder Mcintyre on 22-26-4478Cypndbwtxmt (Bld) [#/Vol]1.3 10*3/uLNormal1.00-4.8[facility] HospitalComment on above:Performed By: #### CBC, BMP ####[address] [address] USALymphocytes/100 leukocytes in Blood by Automated countOrdered By: Bhupinder Mcintyre on 09-24-2024 Lymphocytes/100 WBC (Bld)29.5 %Normal.[facility]len[facility] HospitalComment on above:Performed By: #### CBC, BMP ####[address] [address] [facility] [Entitic mass] by Automated countOrdered By: Bhupinder Mcintyre on 30-27-3567ADG (RBC) [Entitic mass]30.0 adMofvqa84.5-35.2 [facility] HospitalComment on above:Performed By: #### CBC, BMP ####[address] [address] [facility] Auto (RBC) [Mass/Vol]Ordered By: Bhupinder Mcintyre on 64-71-5632ICON (RBC) [Mass/Vol] 32.5 g/dL32.5-35.6FMorrow County HospitalV [Entitic volume] by Automated countOrdered By: Bhupinder Mcintyre on 96-51-2078AOD (RBC) [Entitic vol]92.3 fL Fwitrm32.5-101Ohio[facility]len[facility] HospitalComment on above:Performed By: #### CBC, BMP ####[address] [address] USAMonocytes [#/volume] in Blood by Automated countOrdered By: Bhupinder Mcintyre on 75-67-1628Bdmzcqejj (Bld) [#/Vol]0.4 10*3/uLNormal0.0-0.8[facility] HospitalComment on above:Performed By: #### CBC, BMP ####[address] [place] [address] USAMonocytes/100 leukocytes in Blood by Automated countOrdered By: Bhupinder Mcintyre on 09-24-2024 Monocytes/100 WBC (Bld)8.7 %Normal.[facility]'Blen[facility] HospitalComment on above:Performed By: #### CBC, BMP ####[place] [address] USANeutrophils [#/volume] in Blood by Automated count Ordered By: Bhupinder Mcintyre on 19-79-8988Tgyaxfauzoc (Bld) [#/Vol]2.4 10*3/uLNormal 1.8-7.7FMartin Memorial HospitalComment on above:Performed By: #### CBC, BMP ####[place] [address] [place] Neutrophils/100 leukocytes in Blood by Automated countOrdered By: Bhupinder Mcintyre on 75-43-7905Ywtzvwallhp/100 WBC (Bld)53.6 %Normal.[facility] HospitalComment on above:Performed By: #### CBC, BMP ####[place] [address] USANo Panel InformationOrdered By: Bhupinder Mcintyre on 84-86-4393Yhmhcqpdi GFR (CKD-EPI)> 60.0 mL/MinOhiohealth O'Bleness HospitalPharmacy Creatinine Clearance (ChemN/[facility]> 60.0 mL/MinOhiohealth O'Bleness HospitalN/[facility] Medical CenterNucleated erythrocytes [Presence] in Blood by Automated countOrdered By: Bhupinder Mcintyre on 16-34-2954Zvwukdlwg RBC Auto Ql (Bld)0.2 /100{WBC} 0-0.5FMartin Memorial HospitalPlatelet mean volume [Entitic volume] in Blood by Automated countOrdered By: Bhupinder Mcintyre on 04-79-9676Dzdjthii mean volume (Bld) [Entitic vol]8.2 fLNormal6.6-10.1FMartin Memorial HospitalComment on above:Performed By: #### CBC, BMP ####[address] [address] USAPlatelets [#/volume] in Blood by Automated countOrdered By: Bhupinder Mcintyre on 67-82-1512Wcycdmube (Bld) [#/Vol]188 10*3/uLNormal 150-450Ohio[facility]len[facility] HospitalComment on above:Performed By: #### CBC, BMP ####[address] [address] [place] Potassium [Moles/volume] in Serum or PlasmaOrdered By: Bhupinder Mcintyre on 09-24-2024 Potassium [Moles/Vol]4.3 mmol/LNormal3.5-5.1FMartin Memorial Hospital Comment on above:Performed By: #### CBC, BMP ####[address] [address] USASerum or plasma anion gap determinationOrdered By: Bhupinder Mcintyre on 54-64-9088Cvujf gap [Moles/Vol]9.8 mmol/L Normal6.0-15.0[facility] HospitalComment on above:Performed By: #### CBC, BMP ####[address] [address] USASodium [Moles/volume] in Serum or PlasmaOrdered By: Bhupinder Mcintyre on 89-56-7124Lwqawt [Moles/Vol]138 mmol/FIlrrxd948-561KhakfywksOhiohealth O'Bleness HospitalComment on above:Performed By: #### CBC, BMP ####[address] [address] USAUrea nitrogen [Mass/volume] in Serum or PlasmaOrdered By: Bhupinder Mcintyre on 15-14-0848Nksn nitrogen [Mass/Vol]19 mg/dLNormal7-25Ohio[facility] HospitalComment on above:Performed By: #### CBC, BMP ####[address] [address] USAUrine Cultureon 95-83-0311Eliphums identified Cx Nom (U)NormalThe Formerly Park Ridge Health Physician GroupComment on above:Performed By: #### CUU ####[address] [address] USAUrine cultureOrdered By: Opal Ga on 44-50-3340Hqspaknm identified Cx Nom (U)Achromobacter xylosoxidansUniversity Hospitals Health SystemUrine Cultureon 08-27-2024 Bacteria identified Cx Nom (U)NormalThe Formerly [facility] Health Physician GroupComment on above:Performed By: #### CUU ####[address] [address] USAUrine cultureOrdered By: Opal Ga on 08-27-2024 Bacteria identified Cx Nom (U)Citrobacter freundii complexAbMercy Health St. Anne HospitalBacteria identified Cx Nom (U)Pseudomonas aeruginosa AbnormalOhiohealth O'Bleness HospitalCreatinineon 20-56-1328KLZ/1.73 sq M.predicted MDRD (S/P/Bld) [Vol rate/Area]mL/min/{1.73_m2}NormalThe Formerly Park Ridge Health Physician GroupComment on above:Result Comment: PERFORMED BY:[place] [address] [place] [place], [place] [phone] MEDICAL DIRECTORJAJA CATES M.D.Performed By: #### DESTINY ANTONIOAT ####[address] [address] USACreatinine [Mass/volume] in Serum or PlasmaOrdered By: Sandip Aguirre on 07-23-2024 Creatinine [Mass/Vol]1.06 mg/dLNormal0.70-1.30[facility] Comment on above:Performed By: #### DESTINY ANTONIOAT ####[address] [address] USAErythrocyte Sedimentation Rateon 97-20-9620RDK (Bld) [Velocity]63 mm/hHigh0-19[facility] Comment on above:Result Comment: PERFORMED BY:[address] [address] [place], [place] [phone] MEDICAL DIRECTORJAJA VILLAGOMEZCINDY MariePerformed By: #### ESR ####[address] [address] USAErythrocyte sedimentation rate by Photometric methodOrdered By: Sandip Aguirre on 71-93-8543CHL Photometric method (Bld) [Velocity]63 mm/hrHigh0[facility] HospitalNo Panel InformationOrdered By: Sandip Aguirre on 23-11-6113Nguufkrug GFR (CKD-EPI)> 60.0 mL/MinOhiohealth O'Bleness HospitalPharmacy Creatinine Clearance (ChemN/[facility]> 60.0 mL/MinOhiohealth O'Bleness HospitalN/[facility] Medical CenterVancomycin [Mass/volume] in Serum or Plasma --troughOrdered By: Sandip Aguirre on 46-39-8424Ifhsowidlm trough [Mass/Vol]18.2 ug/mL10.0-20.0[facility] HospitalComment on above:Last dose: -Vancomycin,Troughon 07-23-2024 Vancomycin,Qhchsa65.2 ug/wMMibnnx18.0-20.0The [facility] Physician GroupComment on above:Result Comment: Last dose: -PERFORMED BY:[address] [place], [place] [phone] MEDICAL DIRECTORJAJA VILLAGOMEZCINDY MariePerformed By: #### TALHA ANTONIO ####[address] [address] USABasophils Auto (Bld) [#/Vol]Ordered By: Mario Jordan on 16-17-3600Zltozklil (Bld) [#/Vol]Automated basophil count0.0-0.2FMartin Memorial HospitalBasophils [#/volume] in Blood by Automated countOrdered By: Mario Jordan on 32-10-7846Mqxdbokip (Bld) [#/Vol]0.1 10*3/uLNormal0.0-0.2FMartin Memorial HospitalComment on above:Result Comment: PERFORMED BY:[address] [place], [place] [phone] MEDICAL DIRECTORJAJA WHITE M.D.Performed By: #### CBC ####[address] [address] USABasophils/100 WBC Auto (Bld)Ordered By: Mario Jordan on 81-67-2949Pwnzfjyuj/100 WBC (Bld)Automated basophil %.[facility] HospitalBasophils/100 leukocytes in Blood by Automated count Ordered By: Mario Jordan on 4574Xvcnnaogz/100 WBC (Bld)0.9 %Normal. [facility]len[facility] HospitalComment on above:Performed By: #### CBC ####[place] [address] [facility] Complete Blood Count Auto Diffon 26-33-2021Hoim Corpuscular HGB Conc32.8 g/dL Rkwyge73.5-35.6The Formerly [facility] Physician GroupComment on above:Performed By: #### CBC ####[address] [address] [place] NRBC%0.0 /100{WBC}Normal0-0.5The Formerly [facility] Physician GroupComment on above: Performed By: #### CBC ####[place] [address] USAEosinophils Auto (Bld) [#/Vol]Ordered By: Mario Jordan on 04-94-3235Bxrpukfrmub (Bld) [#/Vol]Automated eosinophil count0.0-0.45 [facility]leness HospitalEosinophils [#/volume] in Blood by Automated countOrdered By: Mario Jordan on 10-26-7746Tndqspmvqyo (Bld) [#/Vol]0.3 10*3/uL Normal0.0-0.45[facility] HospitalComment on above:Performed By: #### CBC ####[place] [address] USAEosinophils/100 WBC Auto (Bld)Ordered By: Mario Jordan on 07-17-2024 Eosinophils/100 WBC (Bld)Automated eosinophil %.[facility]'Bleness HospitalEosinophils/100 leukocytes in Blood by Automated countOrdered By: Mario Jordan on 60-64-2001Xsvalqqtxro/100 WBC (Bld)4.8 %Normal.[facility] HospitalComment on above:Performed By: #### CBC ####[place] [address] USAErythrocyte distribution width Auto (RBC) [Ratio]Ordered By: Mario Jordan on 20-42-3947Jqhkippcvmc distribution width (RBC) [Ratio]Erythrocyte distribution width [Ratio] by Automated count High12.0-14.8[facility] O'Bleness HospitalErythrocyte distribution width [Ratio] by Automated countOrdered By: Mario Jordan on 81-56-8124Jopwoyjcagh distribution width (RBC) [Ratio]18.5 %High12.0-14.8[facility] HospitalComment on above:Performed By: #### CBC ####[place] [address] USAErythrocytes [#/volume] in Blood by Automated countOrdered By: Mario Jordan on 42-17-8565EUK (Bld) [#/Vol]2.88 10*6/uLLow3.90-5.60[facility] HospitalComment on above:Performed By: #### CBC ####[place] [address] USAHematocrit Auto (Bld) [Volume fraction]Ordered By: Mario Jordan on 23-54-3977Xeoxlywdtd (Bld) [Volume fraction]Hematocrit [Volume Fraction] of Blood by Automated vkjfuXff29.8-50.0[facility]'Bleness HospitalHematocrit [Volume Fraction] of Blood by Automated countOrdered By: Mario Jordan on 50-38-0295Zwhtfagtsn (Bld) [Volume fraction]25.8 %Low38.8-50.0[facility] HospitalComment on above:Performed By: #### CBC ####[address] [place] [address] USAHemoglobin [Mass/volume] in BloodOrdered By: Mario Jordan on 44-96-3552Ubwjngxyvp (Bld) [Mass/Vol]Hemoglobin [Mass/volume] in NhyckZxe71.0-17.0[facility]len[facility] HospitalHemoglobin (Bld) [Mass/Vol]8.5 g/dLLow13.0-17.0[facility] HospitalComment on above:Performed By: #### CBC ####[place] [address] USALeukocytes [#/volume] corrected for nucleated erythrocytes in Blood by Automated counOrdered By: Mario Jordan on 02-47-9447BLC corrected for nucl RBC Auto (Bld) [#/Vol]Leukocytes [#/volume] corrected for nucleated erythrocytes in Blood by Automated coun4.1-10.5FMartin Memorial HospitalWBC corrected for nucl RBC Auto (Bld) [#/Vol]7.1 10*3/uL4.1-10.5 [facility] HospitalLeukocytes [#/volume] in Blood by Automated countOrdered By: Mario Jordan on 99-95-6047SFY (Bld) [#/Vol]7.1 10*3/uLNormal 4.1-10.5FMartin Memorial HospitalComment on above:Performed By: #### CBC ####[place] [address] [place] Lymphocytes Auto (Bld) [#/Vol]Ordered By: Mario Jordan on 07-11-4440Eicnhrdtaat (Bld) [#/Vol]Lymphocytes [#/volume] in Blood by Automated count1.00-4.8[facility]'Bleness HospitalLymphocytes [#/volume] in Blood by Automated count Ordered By: Mario Jordan on 29-85-1696Ywmeftcdzum (Bld) [#/Vol]1.5 10*3/uLNormal 1.00-4.8[facility] HospitalComment on above:Performed By: #### CBC ####[address] [address] [facility] Lymphocytes/100 WBC Auto (Bld)Ordered By: Mario Jordan on 07-17-2024 Lymphocytes/100 WBC (Bld)Lymphocytes/100 leukocytes in Blood by Automated count. [facility]'Bleness HospitalLymphocytes/100 leukocytes in Blood by Automated countOrdered By: Mario Jordan on 64-55-5427Gicnkjyrklc/100 WBC (Bld) 20.4 %Normal.[facility] HospitalComment on above:Performed By: #### CBC ####[facility] [id number] [facility] Auto (RBC) [Entitic mass]Ordered By: Mario Jordan on 21-50-9713OHJ (RBC) [Entitic mass]MCH [Entitic mass] by Automated count27.5-35.2FDetwiler Memorial Hospital [Entitic mass] by Automated countOrdered By: Mario Jordan on 10-46-0178JUQ (RBC) [Entitic mass]29.4 dlCpdmcm57.5-35.2FMartin Memorial HospitalComment on above:Performed By: #### CBC ####[address] [address] [place] [id number] [facility] Auto (RBC) [Mass/Vol] Ordered By: Mario Jordan on 13-90-1357KUNW (RBC) [Mass/Vol]MCHC [Mass/volume] by Automated count32.5-35.6FMorrow County HospitalHC (RBC) [Mass/Vol] 32.8 g/dL32.5-35.6FAdena Fayette Medical Center Auto (RBC) [Entitic vol] Ordered By: Mario Jordan on 02-65-1440JLP (RBC) [Entitic vol]MCV [Entitic volume] by Automated count83.5-101[facility] [Entitic volume] by Automated countOrdered By: Mario Jordan on 43-50-5279DSL (RBC) [Entitic vol] 89.8 iZXbuadi47.5-101[facility] HospitalComment on above:Performed By: #### CBC ####[place] [address] USAMonocytes Auto (Bld) [#/Vol]Ordered By: Mario Jordan on 07-17-2024 Monocytes (Bld) [#/Vol]Automated blood monocyte count0.0-0.8[facility] HospitalMonocytes [#/volume] in Blood by Automated countOrdered By: Mario Jordan on 41-84-6370Upofqlwlo (Bld) [#/Vol]0.6 10*3/uLNormal0.0-0.8[facility] HospitalComment on above:Performed By: #### CBC ####[place] [address] USAMonocytes/100 WBC Auto (Bld)Ordered By: Mario Jordan on 40-71-8686Xwnphsdfr/100 WBC (Bld)Automated monocyte %.[facility] HospitalMonocytes/100 leukocytes in Blood by Automated countOrdered By: Mario Jordan on 67-93-8999Tzvjbdijr/100 WBC (Bld)8.0 %Normal.[facility] HospitalComment on above:Performed By: #### CBC ####[address] Neutrophils Auto (Bld) [#/Vol]Ordered By: Mario Jordan on 73-64-6761Fxyalvrckhj (Bld) [#/Vol]Neutrophils [#/volume] in Blood by Automated count1.8-7.7FMartin Memorial HospitalNeutrophils [#/volume] in Blood by Automated countOrdered By: Mario Jordan on 35-14-5250Dsogznstuho (Bld) [#/Vol]4.7 10*3/uLNormal1.8-7.7 [facility] HospitalComment on above:Performed By: #### CBC ####[address] Neutrophils/100 WBC Auto (Bld)Ordered By: Mario Jordan on 07-17-2024 Neutrophils/100 WBC (Bld)Automated neutrophil %.[facility]'Bleness HospitalNeutrophils/100 leukocytes in Blood by Automated countOrdered By: Mario Jordan on 73-88-5236Qrpcgbgjktv/100 WBC (Bld)65.9 %Normal.[facility] HospitalComment on above:Performed By: #### CBC ####[address] [place] [address] USANucleated erythrocytes [Presence] in Blood by Automated countOrdered By: Mario Jordan on 07-17-2024 Nucleated RBC Auto Ql (Bld)Nucleated erythrocytes [Presence] in Blood by Automated count0-0.5FMartin Memorial HospitalNucleated RBC Auto Ql (Bld) 0.0 /100{WBC}0-0.5FMartin Memorial HospitalPlatelet mean volume Auto (Bld) [Entitic vol]Ordered By: Mario Jordan on 08-30-3783Tijncnee mean volume (Bld) [Entitic vol]Platelet mean volume [Entitic volume] in Blood by Automated count6.6-10.1FMartin Memorial HospitalPlatelet mean volume [Entitic volume] in Blood by Automated countOrdered By: Mario Jordan on 09-90-1707Pglmxmca mean volume (Bld) [Entitic vol]8.2 fLNormal6.6-10.1FMartin Memorial HospitalComment on above:Performed By: #### CBC ####[place] [address] USAPlatelets Auto (Bld) [#/Vol]Ordered By: Mario Jordan on 33-94-4877Dchbjrznx (Bld) [#/Vol]Platelets [#/volume] in Blood by Automated -844ZvcslaxwsOhiohealth O'Bleness HospitalPlatelets [#/volume] in Blood by Automated countOrdered By: Mario Jordan on 07-17-2024 Platelets (Bld) [#/Vol]164 10*3/sJEjagdw372-078C[address] [place] [address] Comment on above:Performed By: #### CBC ####[place] [address] USARBC Auto (Bld) [#/Vol]Ordered By: Mario Jordan on 25-84-7647DYO (Bld) [#/Vol]Erythrocytes [#/volume] in Blood by Automated countLow3.90-5.60[facility]'Bleness HospitalWBC Auto (Bld) [#/Vol]Ordered By: Mario Jordan on 56-38-6864HPJ (Bld) [#/Vol]Leukocytes [#/volume] in Blood by Automated count4.1-10.5FMartin Memorial HospitalAlanine aminotransferase [Enzymatic activity/volume] in Serum or PlasmaOrdered By: Mario Jordan on 33-58-3278SAE [Catalytic activity/Vol]Alanine aminotransferase [Enzymatic activity/volume] in Serum or Plasma7-52[facility] HospitalALT [Catalytic activity/Vol]14 U/LNormal7-52[facility] HospitalComment on above:Performed By: #### CBC, CMP ####[facility] [address] [place] [address] USAAlbumin [Mass/volume] in Serum or Plasma by Bromocresol green (BCG) dye binding methoOrdered By: Mario Jordan on 07-16-2024 Albumin BCG dye [Mass/Vol]Albumin [Mass/volume] in Serum or Plasma by Bromocresol green (BCG) dye binding methoLow3.5-5.7FMartin Memorial HospitalAlbumin BCG dye [Mass/Vol]2.8 g/dLLow3.5-5.7FMartin Memorial HospitalAlkaline phosphatase [Enzymatic activity/volume] in Serum or PlasmaOrdered By: Mario Jordan on 06-57-2484OWQ [Catalytic activity/Vol]Alkaline phosphatase [Enzymatic activity/volume] in Serum or Uaxqoj20-336UwcfouoryOhiohealth O'Bleness HospitalALP [Catalytic activity/Vol]100 U/AFlvdyw49-959AdepjsqtsOhiohealth O'Bleness HospitalComment on above:Performed By: #### CBC, CMP ####[facility] [address] [place] [address] USAAspartate aminotransferase [Enzymatic activity/volume] in Serum or PlasmaOrdered By: Mario Jordan on 98-64-0743PYQ [Catalytic activity/Vol]Aspartate aminotransferase [Enzymatic activity/volume] in Serum or Kqhcgv25-41EvupxmwteOhiohealth O'Bleness HospitalAST [Catalytic activity/Vol]22 U/WAmiwpj60-97LvfkeknxfOhiohealth O'Bleness Hospital Comment on above:Performed By: #### CBC, CMP ####[facility] [address] [place] [address] USABilirubin.total [Mass/volume] in Serum or PlasmaOrdered By: Mario Jordan on 21-34-4286Edfrtyhzt [Mass/Vol] Bilirubin.total [Mass/volume] in Serum or Plasma0.3-1.0[facility]'Bleness HospitalBilirubin [Mass/Vol]0.4 mg/dLNormal0.3-1.0[facility] HospitalComment on above:Performed By: #### CBC, CMP ####[facility] [address] [place] [address] USACalcium [Mass/volume] in Serum or PlasmaOrdered By: Mario Jordan on 05-04-9513Zwzeiuo [Mass/Vol] Calcium [Mass/volume] in Serum or PlasmaLow8.6-10.3FMartin Memorial HospitalCalcium [Mass/Vol]8.2 mg/dLLow8.6-10.3FMartin Memorial Hospital Comment on above:Performed By: #### CBC, CMP ####[facility] [address] [place] [address] USACarbon dioxide, total [Moles/volume] in Serum or PlasmaOrdered By: Mario Jordan on 79-97-6160AP3 [Moles/Vol]Carbon dioxide, total [Moles/volume] in Serum or Pwykma31.0-31.0[facility]'Bleness HospitalCO2 [Moles/Vol]26.5 mmol/DRbbysp63.0-31.0[facility] HospitalComment on above:Performed By: #### CBC, CMP ####[facility] [address] [place] [address] USAChloride [Moles/volume] in Serum or PlasmaOrdered By: Mario Jordan on 58-34-6907Vsdptnyj [Moles/Vol]Chloride [Moles/volume] in Serum or Yuikzl14-077XvxllpkqkOhiohealth O'Bleness HospitalChloride [Moles/Vol]104 mmol/DXgfrlx00-006HwpryderoOhiohealth O'Bleness HospitalComment on above:Performed By: #### CBC, CMP ####[address] [address] USAComplete Blood Count Auto Diffon 75-22-7489Wmqqzkwiz (Bld) [#/Vol]0.0 10*3/uLNormal0.0-0.2The [facility] Physician GroupComment on above:Result Comment: PERFORMED BY:[address], [place] [phone] MEDICAL DIRECTORJAJA CATES M.D.Performed By: #### CBC, CMP ####[place] [address] [place] Basophils/100 WBC (Bld)0.6 %Normal.The [facility] Physician GroupComment on above:Performed By: #### CBC, CMP ####[address] [address] USAEosinophils (Bld) [#/Vol]0.3 10*3/uLNormal0.0-0.45 The [facility] Physician GroupComment on above:Performed By: #### CBC, CMP ####[place] [address] [place] Eosinophils/100 WBC (Bld)4.0 %Normal.The [facility] Physician GroupComment on above:Performed By: #### CBC, CMP ####[address] [address] USAErythrocyte distribution width (RBC) [Ratio]18.7 % High12.0-14.8The [facility] Physician GroupComment on above:Performed By: #### CBC, CMP ####[address] [address] USAHematocrit (Bld) [Volume fraction]26.3 %Low38.8-50.0The [facility] Physician GroupComment on above:Performed By: #### CBC, CMP ####[place] [id number] [place]Hemoglobin (Bld) [Mass/Vol]8.6 g/dLLow 13.0-17.0The [facility] Physician GroupComment on above:Performed By: #### CBC, CMP ####[place] [address] [place] Lymphocytes (Bld) [#/Vol]1.3 10*3/uLNormal1.00-4.8The [facility] Comment on above:Performed By: #### CBC, CMP ####[place] [address] [place]ymphocytes/100 WBC (Bld)16.9 %Normal. The [facility]ly [facility] Physician GroupComment on above:Performed By: #### CBC, CMP ####[address]H (RBC) [Entitic mass]29.9 tzNhwmto86.5-35.2The [facility]ly [facility] Physician GroupComment on above:Performed By: #### CBC, CMP ####[address]V (RBC) [Entitic vol]91.3 aXVzzoob89.5-101 The [facility] Physician GroupComment on above:Performed By: #### CBC, CMP ####[place] [address] USAMean Corpuscular HGB Conc32.7 g/zICkoizp32.5-35.6The Formerly [facility] Physician GroupComment on above:Performed By: #### CBC, CMP ####[place] [address] USAMonocytes (Bld) [#/Vol]0.5 10*3/uLNormal 0.0-0.8The [facility]ly [facility] Physician GroupComment on above:Performed By: #### CBC, CMP ####[place] [address] [place] Monocytes/100 WBC (Bld)6.5 %Normal.The [facility] Physician GroupComment on above:Performed By: #### CBC, CMP ####[place] [address] USANeutrophils (Bld) [#/Vol]5.7 10*3/uLNormal1.8-7.7The Formerly [facility] Physician GroupComment on above:Performed By: #### CBC, CMP ####[place] [address] [place] Neutrophils/100 WBC (Bld)72.0 %Normal.The [facility] Physician GroupComment on above:Performed By: #### CBC, CMP ####[place] [address] USANRBC%0.0 /100{WBC}Normal0-0.5The [facility] Physician GroupComment on above:Performed By: #### CBC, CMP ####[place] [address] USAPlatelet mean volume (Bld) [Entitic vol]8.3 fLNormal6.6-10.1The [facility]ly [facility] Physician GroupComment on above: Performed By: #### CBC, CMP ####[place] [address] USAPlatelets (Bld) [#/Vol]151 10*3/yOWtbehb745-805Nwe [facility] Physician GroupComment on above:Performed By: #### CBC, CMP ####[place] [address] USARBC (Bld) [#/Vol]2.88 10*6/uLLow3.90-5.60The [facility] Physician GroupComment on above:Performed By: #### CBC, CMP ####[place] [address] USAWBC (Bld) [#/Vol]7.9 10*3/uLNormal4.1-10.5The Former[facility] Physician GroupComment on above:Performed By: #### CBC, CMP ####[address] Comprehensive Metabolic Panelon 52-23-7293Sxraebe [Mass/Vol]2.8 g/dLLow3.5-5.7 The [facility] Physician GroupComment on above:Performed By: #### CBC, CMP ####[address] [place] [address] [place] Creatinine Clr Calc Efjxrbwk45.36NormColumbia Miami Heart Institute Physician GroupComment on above:Result Comment: PERFORMED BY:[address] [place], [place] [phone] MEDICAL RANCHO WHITE M.D.Performed By: #### CBC, CMP ####[address] [address] USAGFR/1.73 sq M.predicted MDRD (S/P/Bld) [Vol rate/Area]mL/min/{1.73_m2}NormalThe Formerly [facility] Health Physician GroupComment on above: Performed By: #### CBC, CMP ####[address] [place] [address] USACreatinine [Mass/volume] in Serum or PlasmaOrdered By: Mario Jordan on 72-87-9861Gejnjesetr [Mass/Vol]Creatinine [Mass/volume] in Serum or Plasma0.70-1.30[facility] HospitalCreatinine [Mass/Vol] 1.15 mg/dLNormme0.70-1.30[facility] HospitalComment on above: Performed By: #### CBC, CMP ####[address] [address] USAGlobulin Calc (S) [Mass/Vol]Ordered By: Mario Jordan on 03-76-9525Gxdujimd (S) [Mass/Vol]Serum globulin measurement by calculation (mass/volume)[facility] HospitalGlucose [Mass/volume] in Serum or PlasmaOrdered By: Mario Jordan on 16-82-8490Nlfbjoz [Mass/Vol]Glucose [Mass/volume] in Serum or Nxoahw14-734OnnuyssnrOhiohealth O'Bleness HospitalGlucose [Mass/Vol]86 mg/xBNzekln94-976BotbmrmqvOhiohealth O'Bleness HospitalComment on above: ADA recommended reference rangeRandom [...] reference rangePerformed By: #### CBC, CMP ####[facility] [place] [address] USANo Panel InformationOrdered By: Mario Jordan on 63-59-2900Uvndgxfjv GFR (CKD-EPI)> 60.0 mL/MinOhiohealth O'Bleness HospitalPharmacy Creatinine Clearance (Chem51.36[facility]> 60.0 mL/MinOhiohealth O'Bleness Hospital51.36[facility] HospitalPotassium [Moles/volume] in Serum or PlasmaOrdered By: Mario Jodran on 81-29-0025Bgdxbroam [Moles/Vol]Potassium [Moles/volume] in Serum or Plasma3.5-5.1FMartin Memorial HospitalPotassium [Moles/Vol]3.6 mmol/LNormal3.5-5.1FMartin Memorial HospitalComment on above:Performed By: #### CBC, CMP ####[address] [address] USAProtein [Mass/volume] in Serum or PlasmaOrdered By: Mario Jordan on 95-15-9748Blfhyvu [Mass/Vol] Protein [Mass/volume] in Serum or PlasmaLow6.4-8.9[facility] HospitalProtein [Mass/Vol]5.5 g/dLLow6.4-8.9[facility] Comment on above:Performed By: #### CBC, CMP ####[address] [place] [address] USASerum globulin measurement by calculation (mass/volume)Ordered By: Mario Jordan on 38-34-7238Obkhrlag (S) [Mass/Vol]2.7 g/dLNoSt. John of God HospitalComment on above: Performed By: #### CBC, CMP ####[address] [place] [address] USASerum or plasma albumin/globulin mass ratioOrdered By: Mario Jordan on 15-33-5314Rguhzcz/Globulin [Mass ratio]Serum or plasma albumin/globulin mass ratioOhiohealth O'Bleness HospitalAlbumin/Globulin [Mass ratio]1.0 {ratio}NormalOhiohealth O'Bleness HospitalComment on above: Performed By: #### CBC, CMP ####[address] [address] USASerum or plasma anion gap determinationOrdered By: Mario Jordan on 98-65-1968Jyqqs gap [Moles/Vol]Serum or plasma anion gap determination6.0-15.0[facility] HospitalAnion gap [Moles/Vol]10.1 mmol/LNormal6.0-15.0[facility] HospitalComment on above:Performed By: #### CBC, CMP ####[address] USASodium [Moles/volume] in Serum or PlasmaOrdered By: Mario Jordan on 28-77-0815Hknarh [Moles/Vol]Sodium [Moles/volume] in Serum or Axqwff034-169 [facility] Hospitalodium [Moles/Vol]137 mmol/JIxatrc438-026 [facility] HospitalComment on above:Performed By: #### CBC, CMP ####[address] [address] USAUrea nitrogen [Mass/volume] in Serum or PlasmaOrdered By: Mario Jordan on 07-16-2024 Urea nitrogen [Mass/Vol]Urea nitrogen [Mass/volume] in Serum or PlasmaHigh7-25 [facility]leness HospitalUrea nitrogen [Mass/Vol]26 mg/dLHigh7-25 [facility] HospitalComment on above:Performed By: #### CBC, CMP ####[address] [address] USAX-ray reportOrdered By: Shaquille Mahoney on 60-04-0902Uxnyl reportOhiohealth O'Bleness Hospital Work Phone: xr chest 1V portableon 54-89-3015LS chest 1V portable NormalThe Formerly [facility] Physician GroupAerobic Cultureon 67-32-1680Boffmpd Culture NormalThe Formerly [facility] Physician GroupComment on above:Performed By: #### AERC ####[address] [address] USAAerobic cultureOrdered By: Bryce Villeda on 42-39-0548Purfeikk identified Aer cx Nom (Unsp spec)Aerobic cultureOhiohealth O'Bleness HospitalBacteria identified Aer cx Nom (Unsp spec)No Growth 2 DaysOhiohealth O'Bleness HospitalAnaerobic cultureOrdered By: Bryce Villeda on 50-45-8076Uoelgucp identified Anaer cx Nom (Unsp spec)No Anaerobes Isolated 3 DaysOhiohealth O'Bleness HospitalComplete Blood Count Auto Diffon 29-94-3507Xiaztpirr (Bld) [#/Vol]0.1 10*3/uLNormal0.0-0.2The Formerly [facility] Physician GroupComment on above:Result Comment: PERFORMED BY:[address] [place], [place] [phone] MEDICAL DIRECTORJAJA WHITE M.D.Performed By: #### CMP, CBC ####[address] [address] USABasophils/100 WBC (Bld)0.5 %Normal.The Formerly [facility] Physician GroupComment on above:Performed By: #### CMP, CBC ####[address] [address] [place] Eosinophils (Bld) [#/Vol]0.4 10*3/uLNormal0.0-0.45The [facility] Comment on above:Performed By: #### CMP, CBC ####[address] [address] USAEosinophils/100 WBC (Bld)3.1 %Normal. The Former[facility] Physician GroupComment on above:Performed By: #### CMP, CBC ####[address] [address] [place] Erythrocyte distribution width (RBC) [Ratio]18.7 %High12.0-14.8The Formerly [facility] Physician GroupComment on above:Performed By: #### CMP, CBC ####[place] [address] USAHematocrit (Bld) [Volume fraction]24.7 %Low38.8-50.0The [facility] Physician GroupComment on above:Performed By: #### CMP, CBC ####[place] [address] USAHemoglobin (Bld) [Mass/Vol]8.0 g/dLLow13.0-17.0The [facility] Physician GroupComment on above:Performed By: #### CMP, CBC ####[place] [address] [place] Lymphocytes (Bld) [#/Vol]1.2 10*3/uLNormal1.00-4.8[facility] Comment on above:Performed By: #### CMP, CBC ####[place] [address] USALymphocytes/100 WBC (Bld)10.9 %Normal. The [facility] Physician GroupComment on above:Performed By: #### CMP, CBC ####[address] USAMCH (RBC) [Entitic mass]29.4 qpNqjusm29.5-35.2The Former[facility] Physician GroupComment on above:Performed By: #### CMP, CBC ####[place] [address] USAMCV (RBC) [Entitic vol]90.4 lBOdpyho42.5-101 The [facility] Physician GroupComment on above:Performed By: #### CMP, CBC ####[address] USAMean Corpuscular HGB Conc32.5 g/aNKmusgf30.5-35.6The [facility] Physician GroupComment on above:Performed By: #### CMP, CBC ####[place] [address] USAMonocytes (Bld) [#/Vol]0.7 10*3/uLNormal 0.0-0.8The [facility] Physician GroupComment on above:Performed By: #### CMP, CBC ####[place] [address] [place] Monocytes/100 WBC (Bld)6.0 %Normal.The [facility] Physician GroupComment on above:Performed By: #### CMP, CBC ####[place] [address] USANeutrophils (Bld) [#/Vol]8.9 10*3/uLHigh1.8-7.7The [facility] Physician GroupComment on above:Performed By: #### CMP, CBC ####[place] [address] [place] Neutrophils/100 WBC (Bld)79.5 %Normal.The [facility] Physician GroupComment on above:Performed By: #### CMP, CBC ####[place] [address] USANRBC%0.0 /100{WBC}Normal0-0.5The [facility] Physician GroupComment on above:Performed By: #### CMP, CBC ####[place] [address] USAPlatelet mean volume (Bld) [Entitic vol]8.0 fLNormal6.6-10.1The [facility] Physician GroupComment on above: Performed By: #### CMP, CBC ####[place] [address] USAPlatelets (Bld) [#/Vol]153 10*3/dUQkcrdu116-761Hoc [facility] Physician GroupComment on above:Performed By: #### CMP, CBC ####[place] [address] USARBC (Bld) [#/Vol]2.73 10*6/uLLow3.90-5.60The Former[facility] Physician GroupComment on above:Performed By: #### CMP, CBC ####[address] [address] USAWBC (Bld) [#/Vol]11.2 10*3/uLHigh4.1-10.5The Formerly [facility] Physician GroupComment on above:Performed By: #### CMP, CBC ####[address] [address] [facility] Comprehensive Metabolic Panelon 97-58-5325Smghrwo [Mass/Vol]2.7 g/dLLow3.5-5.7 The Former[facility] Physician GroupComment on above:Performed By: #### CMP, CBC ####[address] [address] [facility] Albumin/Globulin [Mass ratio]1.0 {ratio}NormalThe [facility] Comment on above:Performed By: #### CMP, CBC ####[address] [address] USAALP [Catalytic activity/Vol]91 U/L Vbbdmj57-725Gkk [facility] Physician GroupComment on above:Performed By: #### CMP, CBC ####[address] [address] USAALT [Catalytic activity/Vol]8 U/LNormal7-52The [facility] Comment on above:Performed By: #### CMP, CBC ####[address] [address] USAAnion gap [Moles/Vol]9.7 mmol/LNormal 6.0-15.0The Formerly [facility] Physician GroupComment on above:Performed By: #### CMP, CBC ####[address] [address] USAAST [Catalytic activity/Vol]17 U/PAowrws35-73Hgj [facility] Physician GroupComment on above:Performed By: #### CMP, CBC ####[address] [address] USABilirubin [Mass/Vol]0.4 mg/dLNormal0.3-1.0The [facility] Physician GroupComment on above:Performed By: #### CMP, CBC ####[address] [place] [address] USACalcium [Mass/Vol]8.2 mg/dLLow8.6-10.3The Formerly [facility] Physician GroupComment on above: Performed By: #### CMP, CBC ####[address] USAChloride [Moles/Vol]103 mmol/YGsvodz45-644Xrd [facility] Physician [facility] HospitalComment on above:Performed By: #### CMP, CBC ####[place] [address] USACO2 [Moles/Vol]25.8 mmol/LVlhynf42.0-31.0The Former[facility] Physician GroupComment on above:Performed By: #### CMP, CBC ####[place] [address] USACreatinine [Mass/Vol]1.44 mg/dLHigh0.70-1.30The [facility] Physician GroupComment on above:Performed By: #### CMP, CBC ####[place] [address] [place] Creatinine Clr Calc Qingxxzu38.88NoAsheville Specialty Hospital Physician GroupComment on above:Result Comment: PERFORMED BY:[address] [place], [place] [phone] MEDICAL DIRECTORJAJA WHITE M.D.Performed By: #### CMP, CBC ####[address] [address] USAEstimated GFR48.213 mL/MinNoAsheville Specialty Hospital Physician [facility] HospitalComment on above:Performed By: #### CMP, CBC ####[address] [address] USAGlobulin (S) [Mass/Vol]2.7 g/dLAdventHealth Brandon ER Physician [facility] HospitalComment on above:Performed By: #### CMP, CBC ####[address] [address] USAGlucose [Mass/Vol]108 mg/pUUror08-805Rcl [facility] Comment on above:Result Comment: Random Glucose Reference Range is dependent on time and content of last meal. Glucose of more than 200 mg/dL in a nonstressed, ambulatory subject supports the diagnosis of Diabetes Mellitus. ADA recommended reference rangePerformed By: #### CMP, CBC ####[address] [place] [address] USAPotassium [Moles/Vol]3.5 mmol/LNormal 3.5-5.1The [facility] Physician GroupComment on above:Performed By: #### CMP, CBC ####[address] [place] [address] [place] Protein [Mass/Vol]5.4 g/dLLow6.4-8.9The [facility] Physician [facility] HospitalComment on above:Performed By: #### CMP, CBC ####[address] [place] [address] USASodium [Moles/Vol]135 mmol/CEnw652-312Ohj [facility] Physician [facility] HospitalComment on above:Performed By: #### CMP, CBC ####[address] USAUrea nitrogen [Mass/Vol]32 mg/dLHigh7-25The [facility] Physician [facility] HospitalComment on above: Performed By: #### CMP, CBC ####[address] USAGram stain microscopyOrdered By: Bryce Villeda on 11-87-9142Tzsokxutkat observation Gram stain Nom (Unsp spec)Gram stain microscopyOhiohealth O'Bleness HospitalMicroscopic observation Gram stain Nom (Unsp spec)[facility] HospitalVancomycin [Mass/volume] in Serum or Plasma --troughOrdered By: Mario Jordan on 94-74-8945Tbudxhefua trough [Mass/Vol]Serum or plasma trough vancomycin optziYsdz65.0-20.0[facility] HospitalVancomycin trough [Mass/Vol]38.7 ug/lXAoaj01.0-20.0[facility] HospitalComment on above:Last dose: -Vancomycin,Troughon 28-52-8292Ramjeyerze,Fzlfrv67.7 ug/rOTpfs20.0-20.0The [facility] Comment on above:Result Comment: Last dose: -PERFORMED BY:[address] [place], [place] [phone] MEDICAL DIRECTORJAJA CATES M.D.Performed By: #### VANCT ####[address] [address] USACT lower leg RT wo conon 11-54-4371OI lower leg RT wo conNormalThe [facility] Physician [facility] Complete Blood Count Auto Diffon 90-25-9166Dqjyqcwgy (Bld) [#/Vol]0.0 10*3/uL Normal0.0-0.2The [facility] Physician GroupComment on above:Result Comment: PERFORMED BY:[address] [place], [place] [phone] MEDICAL DIRECTORJAJA CATES M.D. Performed By: #### CBC, CMP ####[address] USABasophils/100 WBC (Bld)0.2 %Normal.The [facility] Physician GroupComment on above:Performed By: #### CBC, CMP ####[address] USAEosinophils (Bld) [#/Vol]0.2 10*3/uLNormal0.0-0.45The [facility] Physician GroupComment on above: Performed By: #### CBC, CMP ####[address] USAEosinophils/100 WBC (Bld)1.4 %Normal.The [facility] Physician GroupComment on above:Performed By: #### CBC, CMP ####[address] USAErythrocyte distribution width (RBC) [Ratio]18.4 %High12.0-14.8The [facility]ician [facility] Comment on above:Performed By: #### CBC, CMP ####[address] [address] USAHematocrit (Bld) [Volume fraction]24.0 %Low38.8-50.0The [facility] Physician GroupComment on above:Performed By: #### CBC, CMP ####[place] [address] USAHemoglobin (Bld) [Mass/Vol]7.8 g/dLLow13.0-17.0The [facility] Comment on above:Performed By: #### CBC, CMP ####[address] USALymphocytes (Bld) [#/Vol]1.2 10*3/uL Normal1.00-4.8The [facility] Physician GroupComment on above:Performed By: #### CBC, CMP ####[place] [address] USALymphocytes/100 WBC (Bld)7.4 %Normal.The [facility] Physician GroupComment on above:Performed By: #### CBC, CMP ####[address] USAMCH (RBC) [Entitic mass]29.8 geZgddok62.5-35.2The [facility] Physician GroupComment on above:Performed By: #### CBC, CMP ####[address] USAMCV (RBC) [Entitic vol]91.5 eRAiphpr84.5-101The Former[facility] Physician GroupComment on above:Performed By: #### CBC, CMP ####[address] USAMean Corpuscular HGB Conc32.5 g/mUNvmvam37.5-35.6The [facility] Physician GroupComment on above:Performed By: #### CBC, CMP ####[address] [place] Monocytes (Bld) [#/Vol]1.0 10*3/uLHigh0.0-0.8The [facility] Comment on above:Performed By: #### CBC, CMP ####[address] [address] USAMonocytes/100 WBC (Bld)6.1 %Normal.The [facility] Physician GroupComment on above:Performed By: #### CBC, CMP ####[address] [address] [place] Neutrophils (Bld) [#/Vol]13.3 10*3/uLHigh1.8-7.7The [facility] Comment on above:Performed By: #### CBC, CMP ####[address] [address] USANeutrophils/100 WBC (Bld)84.9 %Normal. The [facility] Physician GroupComment on above:Performed By: #### CBC, CMP ####[address] [address] USANRBC% 0.1 /100{WBC}Normal0-0.5The Former[facility] Physician GroupComment on above:Performed By: #### CBC, CMP ####[address] [address] USAPlatelet mean volume (Bld) [Entitic vol]7.9 fLNormal6.6-10.1The Former[facility] Physician GroupComment on above:Performed By: #### CBC, CMP ####[address] [address] [place] Platelets (Bld) [#/Vol]147 10*3/uOFlj304-526Xya [facility] Physician GroupComment on above:Performed By: #### CBC, CMP ####[address] [address] USARBC (Bld) [#/Vol]2.63 10*6/uLLow3.90-5.60The [facility] Physician GroupComment on above:Performed By: #### CBC, CMP ####[address] [address] USAWBC (Bld) [#/Vol]15.7 10*3/uLHigh4.1-10.5The [facility] Physician GroupComment on above:Performed By: #### CBC, CMP ####[address] [address] USAComprehensive Metabolic Panelon 19-09-4778Exojbuu [Mass/Vol]2.7 g/dLLow3.5-5.7The [facility] Physician GroupComment on above: Performed By: #### CBC, CMP ####[place] [address] USAAlbumin/Globulin [Mass ratio]1.1 {ratio}NormalThe Formerly [facility] Physician GroupComment on above:Performed By: #### CBC, CMP ####[place] [address] USAALP [Catalytic activity/Vol]79 U/RSxnjyi02-499Iqm [facility] Physician GroupComment on above:Performed By: #### CBC, CMP ####[place] [address] USAALT [Catalytic activity/Vol]4 U/LLow7-52The [facility] Physician GroupComment on above:Performed By: #### CBC, CMP ####[address] USAAnion gap [Moles/Vol]12.2 mmol/LNormal6.0-15.0The [facility] Physician GroupComment on above:Performed By: #### CBC, CMP ####[address] USAAST [Catalytic activity/Vol]11 U/DLsx42-54Sdh [facility] Physician GroupComment on above:Performed By: #### CBC, CMP ####[address] [place] Bilirubin [Mass/Vol]0.4 mg/dLNormal0.3-1.0The [facility] Physician GroupComment on above:Performed By: #### CBC, CMP ####[place] [address] USACalcium [Mass/Vol]8.2 mg/dLLow8.6-10.3The Former[facility] Physician GroupComment on above:Performed By: #### CBC, CMP ####[place] [address] [place] Chloride [Moles/Vol]101 mmol/TVuseaf03-163Vfw [facility] Physician GroupComment on above:Performed By: #### CBC, CMP ####[address] USACO2 [Moles/Vol]22.1 mmol/SOigkbr58.0-31.0The Former[facility] Physician GroupComment on above:Performed By: #### CBC, CMP ####[address] [facility] Creatinine [Mass/Vol]1.63 mg/dLHigh0.70-1.30The Former[facility] Physician GroupComment on above:Performed By: #### CBC, CMP ####[place] [address] USACreatinine Clr Calc Uyfhrejb57.75NormColumbia Miami [facility] Institute Physician GroupComment on above:Result Comment: PERFORMED BY:[address] [place], [place] [phone] MEDICAL DIRECTORJAJA CATES M.D.Performed By: #### CBC, CMP ####[address] Estimated GFR41.809 mL/MinNoAsheville Specialty Hospital Physician [facility] HospitalComment on above: Performed By: #### CBC, CMP ####[address] USAGlobulin (S) [Mass/Vol]2.5 g/dLAdventHealth Brandon ER Physician [facility] HospitalComment on above:Performed By: #### CBC, CMP ####[place] [address] USAGlucose [Mass/Vol]81 mg/nSGchfgk14-048Wrv [facility] Physician GroupComment on above:Result Comment: Random Glucose Reference Range is dependent on time and content of last meal. Glucose of more than 200 mg/dL in a nonstressed, ambulatory subject supports the diagnosis of Diabetes Mellitus. ADA recommended reference rangePerformed By: #### CBC, CMP ####[facility] [place] [address] USAPotassium [Moles/Vol]3.3 mmol/LLow3.5-5.1The [facility] Comment on above:Performed By: #### CBC, CMP ####[address] [place] [address] USAProtein [Mass/Vol]5.2 g/dLLow6.4-8.9 The [facility] Physician GroupComment on above:Performed By: #### CBC, CMP ####[address] [place] [address] USASodium [Moles/Vol]132 mmol/GEth258-664Xcl [facility] Physician GroupComment on above: Performed By: #### CBC, CMP ####[address] [address] USAUrea nitrogen [Mass/Vol]34 mg/dLHigh7-25The [facility] Physician GroupComment on above:Performed By: #### CBC, CMP ####[address] [place] [facility] Vancomycin [Mass/volume] in Serum or Plasma --peakOrdered By: Mario Jordan on 33-63-1189Illvubfspv peak [Mass/Vol]Vancomycin [Mass/volume] in Serum or Plasma --peak20.0-40.0[facility]len[facility] HospitalVancomycin peak [Mass/Vol]27.3 ug/mL20.0-40.0[facility] HospitalComment on above:Last dose: - Vancomycin,Peakon 20-62-3544Gchrbbpmyk,Peak27.3 ug/yICrwjgy75.0-40.0The [facility] Physician GroupComment on above:Order Comment: Comment ?DRAW 1 HOUR AFTER INFUSION COMPLETES Date of last dose?: 20240712 Time of last dose?: 1800 Result Comment: Last dose: -PERFORMED BY:[address] [place], [place] [phone] MEDICAL DIRECTORJAJA CATES M.D.Performed By: #### VANCP ####[address] [place] [address] USAAcanthocytes [Presence] in Blood by Light microscopyOrdered By: Mario Jordan on 93-72-8769Wzdugmhjhhri LM Ql (Bld) Acanthocytes [Presence] in Blood by Light microscopyOhiohealth O'Bleness HospitalAcanthocytes LM Ql (Bld)SlightOhiohealth O'Bleness Hospital Anisocytosis LM Ql (Bld)Ordered By: Mario Jordan on 04-67-8812Kwwdpyaytopu Ql (Bld)Anisocytosis [Presence] in Blood by Light microscopyOhiohealth O'Bleness HospitalAnisocytosis [Presence] in Blood by Light microscopyOrdered By: Mario Jordan on 28-32-8807Aaspphxwdmiv Ql (Bld)SlightNormalOhiohealth O'Bleness HospitalComment on above:Performed By: #### PHOS, CMP, SCAN CBC, MG ####[address] [place] [id number] USACT abdomen pelvis wo conon 75-03-4083NP abdomen pelvis wo conNormalThe [facility] Physician [facility] HospitalComprehensive Metabolic Panelon 72-31-6846Ioolisi [Mass/Vol]2.6 g/dLLow3.5-5.7The Formerly [facility] Physician GroupComment on above:Performed By: #### PHOS, CMP, SCAN CBC, MG ####[address] [place] [address] USAAlbumin/Globulin [Mass ratio]1.1 {ratio}NormalThe Formerly [facility] Physician GroupComment on above:Performed By: #### PHOS, CMP, SCAN CBC, MG ####[address] [place] [address] USAALP [Catalytic activity/Vol]69 U/VDfiqlk04-292Tjn [facility] Comment on above:Performed By: #### PHOS, CMP, SCAN CBC, MG ####[address] [place] [address] USAALT [Catalytic activity/Vol]5 U/LLow7-52The Formerly [facility] Physician GroupComment on above:Performed By: #### PHOS, CMP, SCAN CBC, MG ####[place] [address] USAAnion gap [Moles/Vol]11.7 mmol/LNormal6.0-15.0The Formerly [facility] Physician GroupComment on above:Performed By: #### PHOS, CMP, SCAN CBC, MG ####[place] [address] USAAST [Catalytic activity/Vol]11 U/DOeu05-76Vle [facility] Comment on above:Performed By: #### PHOS, CMP, SCAN CBC, MG ####[place] [address] USABilirubin [Mass/Vol] 0.5 mg/dLNormal0.3-1.0The Formerly [facility] Physician GroupComment on above:Performed By: #### PHOS, CMP, SCAN CBC, MG ####[place] [address] USACalcium [Mass/Vol]8.1 mg/dLLow8.6-10.3The Formerly [facility] Physician GroupComment on above:Performed By: #### PHOS, CMP, SCAN CBC, MG ####[place] [address] [place] Chloride [Moles/Vol]101 mmol/EMizenk22-461Ghl [facility] Physician GroupComment on above:Performed By: #### PHOS, CMP, SCAN CBC, MG ####[place] [address] USACO2 [Moles/Vol]24.2 mmol/L Gcuppw18.0-31.0The Formerly [facility] Physician GroupComment on above:Performed By: #### PHOS, CMP, SCAN CBC, MG ####[place] [address] USACreatinine [Mass/Vol]1.75 mg/dLHigh0.70-1.30The Formerly [facility] Physician GroupComment on above:Performed By: #### PHOS, CMP, SCAN CBC, MG ####[place] [address] USACreatinine Clr Calc Jowghzgl67.84NoAsheville Specialty Hospital Physician [facility] HospitalComment on above:Performed By: #### PHOS, CMP, SCAN CBC, MG ####[address] [place] [address] USAEstimated GFR38.393 mL/Min NormalThe [facility] Physician [facility] HospitalComment on above:Performed By: #### PHOS, CMP, SCAN CBC, MG ####[place] [address] USAGlobulin (S) [Mass/Vol]2.3 g/dLNoAsheville Specialty Hospital Physician [facility] Comment on above:Performed By: #### PHOS, CMP, SCAN CBC, MG ####[place] [address] USAGlucose [Mass/Vol]66 mg/oVXbf92-518Sjn [facility] Physician GroupComment on above:Result Comment: Random Glucose Reference Range is dependent on time and content of last meal. Glucose of more than 200 mg/dL in a nonstressed, ambulatory subject supports the diagnosis of Diabetes Mellitus. ADA recommended reference rangePerformed By: #### PHOS, CMP, SCAN CBC, MG ####[place] [address] USAPotassium [Moles/Vol]3.9 mmol/LNormal3.5-5.1The [facility]ician [facility] HospitalComment on above:Performed By: #### PHOS, CMP, SCAN CBC, MG ####[place] [address] USAProtein [Mass/Vol]4.9 g/dLSignificant change down6.4-8.9The [facility]ician [facility] HospitalComment on above:Performed By: #### PHOS, CMP, SCAN CBC, MG ####[place] [address] USASodium [Moles/Vol]133 mmol/JNkh075-841Kjo [facility] HospitalComment on above: Performed By: #### PHOS, CMP, SCAN CBC, MG ####[address] [place] [address] USAUrea nitrogen [Mass/Vol]34 mg/dLWebster County Memorial Hospital 7 Formerly [facility] Physician GroupComment on above:Performed By: #### PHOS, CMP, SCAN CBC, MG ####[address] [place] [address] USADacrocytes [Presence] in Blood by Light microscopyOrdered By: Mario Jordan on 89-09-8015Tjfizvsbzy LM Ql (Bld)Teardrop cell detectionOhiohealth O'Bleness HospitalDacrocytes LM Ql (Bld)SlightOhiohealth O'Bleness HospitalErythrocyte morphology finding [Identifier] in BloodOrdered By: Mario Jordan on 05-71-9073KNA morphology finding Nom (Bld)RBC morphologyOhiohealth O'Bleness HospitalRBC morphology finding Nom (Bld)N/[facility] Medical CenterHypochromia LM Ql (Bld)Ordered By: Mario Jordan on 07-13-2024 Hypochromia Ql (Bld)Hypochromia [Presence] in Blood by Light microscopyOhiohealth O'Bleness HospitalHypochromia Ql (Bld)German HospitalMRSA - MSSA Nasal PCRon 25-15-7399UOGY - MSSA Nasal PCRNoAsheville Specialty Hospital Physician GroupComment on above:Performed By: #### MRSA - MSSA PCR ####[address] [address] [facility] Magnesium [Mass/volume] in Serum or PlasmaOrdered By: Mario Jordan on 07-13-2024 Magnesium [Mass/Vol]Magnesium [Mass/volume] in Serum or PlasmaLow1.9-2.7 [facility]leness HospitalMagnesium [Mass/Vol]1.8 mg/dLLow1.9-2.7 [facility]leness HospitalComment on above:Result Comment: PERFORMED BY:[address] [place], [place] [phone] MEDICAL DIRECTORJAJA CATES M.D.Performed By: #### PHOS, CMP, SCAN CBC, MG ####[address] [address] USAMicrocytes LM Ql (Bld)Ordered By: Mario Jordan on 51-74-3247Ohojcjuult Ql (Bld)Microcytes [Presence] in Blood by Light microscopy [facility]'Bleness HospitalMicrocytes Ql (Bld)German HospitalNo Panel InformationOrdered By: Mario Jordan on 92-45-7346Dnnco Screen MRSA/MSSKettering Health – Soin Medical CenterOvalocytes [Presence] in Blood by Light microscopyOrdered By: Mario Jordan on 16-01-6609Zsoeoghkya LM Ql (Bld) Ovalocyte detectionOhiohealth O'Bleness HospitalOvalocytes LM Ql (Bld)[facility] HospitalPhosphate [Mass/volume] in Serum or Plasma Ordered By: Mario Jordan on 11-60-4040Lwemxoqps [Mass/Vol]Phosphate [Mass/volume] in Serum or Plasma2.5-4.5FMartin Memorial HospitalPhosphate [Mass/Vol] 3.0 mg/dLNormal2.5-4.5FMartin Memorial HospitalComment on above: Performed By: #### PHOS, CMP, SCAN CBC, MG ####[facility] [id number] USAPlatelet adequacy [Presence] in Blood by Light microscopyOrdered By: Mario Jordan on 48-24-8315Zspgndhro LM Ql (Bld) Platelet adequacy [Presence] in Blood by Light microscopyNoSt. John of God HospitalPlatelets LM Ql (Bld)NormalNoSt. John of God HospitalPlatelet morphology finding [Identifier] in BloodOrdered By: Mario Jordan on 92-26-8951Jdeomzdd morphology finding Nom (Bld)Platelet morphology finding [Identifier] in BloodOhiohealth O'Bleness HospitalPlatelet morphology finding Nom (Bld)N/AFMartin Memorial HospitalPlatelets Large [Presence] in Blood by Light microscopyOrdered By: Mario Jordan on 07-13-2024 Platelets Large LM Ql (Bld)Platelets Large [Presence] in Blood by Light microscopyOhiohealth O'Bleness HospitalPlatelets Large LM Ql (Bld)Slight [facility]Bleness HospitalPoikilocytosis [Presence] in Blood by Light microscopyOrdered By: Mario Jordan on 71-54-9305Sryopshhhtpziz LM Ql (Bld) Poikilocytosis [Presence] in Blood by Light microscopyOhiohealth O'Bleness HospitalPoikilocytosis LM Ql (Bld)ModerateOhiohealth O'Bleness Hospital Polychromasia [Presence] in Blood by Light microscopyOrdered By: Mario Jordan on 97-63-8460Womzeoagwwiak LM Ql (Bld)Polychromasia [Presence] in Blood by Light microscopyOhiohealth O'Bleness HospitalPolychromasia LM Ql (Bld)Slight [facility] District Hospitalcan and CBCon 70-56-6370NmbdcqfgepqlZptibi NormalThe Formerly [facility] Physician GroupComment on above:Performed By: #### PHOS, CMP, SCAN CBC, MG ####[place] [address] USABasophils (Bld) [#/Vol]0.1 10*3/uLNormal0.0-0.2The Formerly [facility] Physician GroupComment on above:Performed By: #### PHOS, CMP, SCAN CBC, MG ####[address] [place] Basophils/100 WBC (Bld)0.2 %Normal.The Formerly [facility] Physician GroupComment on above:Performed By: #### PHOS, CMP, SCAN CBC, MG ####[address] [address] USAEosinophils (Bld) [#/Vol]0.0 10*3/uL Normal0.0-0.45The Formerly [facility] Physician GroupComment on above:Performed By: #### PHOS, CMP, SCAN CBC, MG ####[address] USAEosinophils/100 WBC (Bld)0.1 %Normal.The Former[facility] Physician GroupComment on above:Performed By: #### PHOS, CMP, SCAN CBC, MG ####[address] [place] Erythrocyte distribution width (RBC) [Ratio]18.4 %High12.0-14.8The Formerly [facility] Physician GroupComment on above:Performed By: #### PHOS, CMP, SCAN CBC, MG ####[address] [address] [place] Hematocrit (Bld) [Volume fraction]25.1 %Low38.8-50.0The Formerly [facility] Physician GroupComment on above:Performed By: #### PHOS, CMP, SCAN CBC, MG ####[address] [address] USAHemoglobin (Bld) [Mass/Vol]8.0 g/dLLow13.0-17.0The Formerly [facility] Physician GroupComment on above: Performed By: #### PHOS, CMP, SCAN CBC, MG ####[address] [address] USAHypochromasiaSSandhills Regional Medical Center Physician GroupComment on above:Performed By: #### PHOS, CMP, SCAN CBC, MG ####[address] [address] USALarge PlateletsSSandhills Regional Medical Center Physician GroupComment on above:Result Comment: PERFORMED BY:[address]ETToshaCHANNAHON, [place] [phone] MEDICAL DIRECTORJAJA CATES M.D. Performed By: #### PHOS, CMP, SCAN CBC, MG ####[address] [address] USALymphocytes (Bld) [#/Vol]0.7 10*3/uL Low1.00-4.8The Formerly [facility] Physician GroupComment on above:Performed By: #### PHOS, CMP, SCAN CBC, MG ####[address] [address] USALymphocytes/100 WBC (Bld)2.7 %Normal.The Formerly [facility] Physician GroupComment on above:Performed By: #### PHOS, CMP, SCAN CBC, MG ####[address] [address] USAMCH (RBC) [Entitic mass]29.1 jwKhcain41.5-35.2The Formerly [facility] Physician GroupComment on above:Performed By: #### PHOS, CMP, SCAN CBC, MG ####[place] [address] USAMCV (RBC) [Entitic vol]90.9 fL Dtarix67.5-101The Formerly [facility] Physician GroupComment on above:Performed By: #### PHOS, CMP, SCAN CBC, MG ####[place] [address] USAMean Corpuscular HGB Conc32.0 g/dLLow32.5-35.6The Formerly [facility] Physician GroupComment on above:Performed By: #### PHOS, CMP, SCAN CBC, MG ####[place] [address] USAMicrocytosisSlightNormalThe Formerly [facility] Physician GroupComment on above: Performed By: #### PHOS, CMP, SCAN CBC, MG ####[place] [address] USAMonocytes (Bld) [#/Vol]1.8 10*3/uLHigh 0.0-0.8The Formerly [facility] Physician GroupComment on above:Performed By: #### PHOS, CMP, SCAN CBC, MG ####[place] [address] USAMonocytes/100 WBC (Bld)6.8 %Normal.The [facility] Comment on above:Performed By: #### PHOS, CMP, SCAN CBC, MG ####[place] [address] USANeutrophils (Bld) [#/Vol]24.1 10*3/uLHigh1.8-7.7The Formerly [facility] Physician GroupComment on above: Performed By: #### PHOS, CMP, SCAN CBC, MG ####[place] [address] USANeutrophils/100 WBC (Bld)90.2 %Normal. The Formerly [facility] Physician GroupComment on above:Performed By: #### PHOS, CMP, SCAN CBC, MG ####[address] [place] [address] USANRBC%0.1 /100{WBC}Normal0-0.5The Formerly [facility] Physician GroupComment on above: Performed By: #### PHOS, CMP, SCAN CBC, MG ####[address] [address] USAOvalocytesSlightAdventHealth Brandon ER Physician GroupComment on above:Performed By: #### PHOS, CMP, SCAN CBC, MG ####[address] [address] [place] Platelet EstimateNormalNormalAdventHealth Brandon ER Physician GroupComment on above:Performed By: #### PHOS, CMP, SCAN CBC, MG ####[address] [address] USAPlatelet mean volume (Bld) [Entitic vol]7.7 fLNormal6.6-10.1The Formerly [facility] Physician GroupComment on above:Performed By: #### PHOS, CMP, SCAN CBC, MG ####[address] [address] USAPlatelets (Bld) [#/Vol]179 10*3/sWNgxwho869-496Iqp Formerly [facility] Physician GroupComment on above:Performed By: #### PHOS, CMP, SCAN CBC, MG ####[address] [address] USAPoikilocytosisModerateNormColumbia Miami Heart Institute Physician GroupComment on above: Performed By: #### PHOS, CMP, SCAN CBC, MG ####[address] [address] USAPolychromasiaSlightAdventHealth Brandon ER Physician GroupComment on above:Performed By: #### PHOS, CMP, SCAN CBC, MG ####[address] [address] USARBC (Bld) [#/Vol]2.77 10*6/uLLow3.90-5.60The Formerly [facility] Physician GroupComment on above:Performed By: #### PHOS, CMP, SCAN CBC, MG ####[address] [place] [address] USASchistocytesNovant Health Physician GroupComment on above:Performed By: #### PHOS, CMP, SCAN CBC, MG ####[address] [address] USATear Drop CellsSlightAdventHealth Brandon ER Physician GroupComment on above:Performed By: #### PHOS, CMP, SCAN CBC, MG ####[address] [address] USAWBC (Bld) [#/Vol]26.7 10*3/uLHigh4.1-10.5The Formerly [facility] Physician GroupComment on above:Performed By: #### PHOS, CMP, SCAN CBC, MG ####[address] [address] USASchistocytes [Presence] in Blood by Light microscopyOrdered By: Mario Jordan on 08-44-4284Mbqrnmcurjaw LM Ql (Bld)Schistocytes [Presence] in Blood by Light microscopyHighland District Hospitalchistocytes LM Ql (Bld)Slight Highland District Hospitaltool Occult Blood (Guaiac)on 13-86-8954Gukrm Occult Blood (Guaiac)NormalThe Formerly [facility] Physician GroupComment on above: Performed By: #### OB(GUAIAC) ####[address] [address]SECOcppp gastrointestinal hemoglobin detectionOrdered By: Melvi Qureshi on 13-34-6469Sztjcykula.gastrointestinal Ql (Stl)Stool gastrointestinal hemoglobin detectionOhiohealth O'Bleness Hospital Hemoglobin.gastrointestinal Ql (Stl)[facility]len[facility] HospitalAlanine aminotransferase [Enzymatic activity/volume] in Serum or PlasmaOrdered By: Melvi Qureshi on 15-82-1413GGX [Catalytic activity/Vol]Alanine aminotransferase [Enzymatic activity/volume] in Serum or PlasmaLow7-52Ohio[facility] O'Bleness HospitalAlbumin [Mass/volume] in Serum or Plasma by Bromocresol green (BCG) dye binding methoOrdered By: Melvi Qureshi on 81-61-0586Wgprdkg BCG dye [Mass/Vol] Albumin [Mass/volume] in Serum or Plasma by Bromocresol green (BCG) dye binding methoLow3.5-5.7FMartin Memorial HospitalAlkaline phosphatase [Enzymatic activity/volume] in Serum or PlasmaOrdered By: Melvi Qureshi on 55-82-2758AWR [Catalytic activity/Vol]Alkaline phosphatase [Enzymatic activity/volume] in Serum or Jgabzv28-952GttilpsfjOhiohealth O'Bleness HospitalAmbulatory Visit Summaryon 97-35-6207Hjyflolikw Visit SummaryAmbulatory Visit Summary TAVO WALLIS :1940 [...] Ambar Summers PA-C Where: [facility] [address] [place] [address]- You Need to Schedule the Following Appointments [...] with obstruction/lowe (more content not included)...[facility] Health SystemAspartate aminotransferase [Enzymatic activity/volume] in Serum or PlasmaOrdered By: Melvi Qureshi on 83-43-6685OSH [Catalytic activity/Vol]Aspartate aminotransferase [Enzymatic activity/volume] in Serum or Lizkcb91-07TowyrdtnhOhiohealth O'Bleness HospitalBNP ser/plasOrdered By: Melvi Qureshi on 07-12-2024 Natriuretic peptide B (Bld) [Mass/Vol]164.0 pg/mLHigh5-100Ohiohealth O'Bleness HospitalComment on above:Result Comment: PERFORMED BY:[facility] [place], [place] [phone] MEDICAL DIRECTORJAJA CATES M.D.Performed By: #### BNP ####[facility] [place] [address] USABacteria [Presence] in Urine sediment by Light microscopyOrdered By: Melvi Qureshi on 95-08-4172Lqdivtgv LM Ql (Urine sed)Bacteria [Presence] in Urine sediment by Light microscopyCleveland Clinic Akron GeneralBacteria LM Ql (Urine sed)1+ [HPF][facility] GeneralBand form neutrophils/100 WBC Manual cnt (Bld)Ordered By: Mario Jordan on 83-05-9118Tnxg form neutrophils/100 WBC (Bld) Peripheral white blood cell differential % bands, microscopic exam0-Martin Memorial HospitalBand form neutrophils/100 leukocytes in Blood by Manual countOrdered By: Mario Jordan on 83-17-7835Yctf form neutrophils/100 WBC (Bld)3 % Normal0-Martin Memorial HospitalComment on above:Order Comment: 4P/33 Performed By: #### DIFF CBC ####[facility] [id number] USABasophils Auto (Bld) [#/Vol]Ordered By: Melvi Qureshi on 21-67-3443Evhactnwm (Bld) [#/Vol]Automated basophil count0.0-0.2FMartin Memorial HospitalBasophils/100 WBC Auto (Bld)Ordered By: Melvi Qureshi on 51-46-7925Hbtyiikul/100 WBC (Bld)Automated basophil %.Ohiohealth O'Bleness HospitalBilirubin Test strip Ql (U)Ordered By: Melvi Qureshi on 49-89-1907Ijcdssuyg Ql (U)Bilirubin.total [Presence] in Urine by Test stripNegativeOhiohealth O'Bleness HospitalBilirubin Ql (U)See commentNegativeOhiohealth O'Bleness HospitalComment on above:Unable to obtain accurate result due to color interference.Bilirubin.total [Mass/volume] in Serum or PlasmaOrdered By: Melvi Qureshi on 68-50-0191Drpmxcxgt [Mass/Vol]Bilirubin.total [Mass/volume] in Serum or Plasma0.3-1.0Ohio[facility]'Bleness HospitalBlood Cultureon 40-56-4789Tfgbeohm identified Cx Nom (Bld)NormalThe Formerly [facility] Physician GroupComment on above: Performed By: #### HS TROP, CBC, CUBLD, MG, LACTIC, CMP ####[facility] [address] [place] [address] USACOVID Cepheid NegativeOrdered By: Melvi Qureshi on 98-67-0297JLPK-CoV-2 (COVID-19) Ab IA QlNegativeNegSumma HealthComment on above:This is a duplicate Cepheid Xpert Xpress CoV-2/Flu/RSV Plus RNA by RT-PCR result to be used for statistical tracking purpose only.SARS-CoV-2 (COVID-19) RNA SMITHA+probe Ql (Unsp spec)COVID CepheidNegativeHighland District HospitalARS-CoV-2 (COVID-19) RNA SMITHA+probe Ql (Unsp spec)NegativeNormalNegativeOhiohealth O'Bleness Hospital Comment on above:Result Comment: This is a duplicate Cepheid Xpert Xpress CoV- 2/Flu/RSV Plus RNA by RT-PCR result zaira used for statistical tracking purpose only.PERFORMED BY:[address] [place], [place] [phone] MEDICAL DIRECTORJAJA CATES M.D. Performed By: #### COVID19 FLU RSV, CEPHEID NEG ####[address] [place] [address] USACalcium [Mass/volume] in Serum or PlasmaOrdered By: Melvi Qureshi on 57-01-6764Hgmxnzj [Mass/Vol]Calcium [Mass/volume] in Serum or Plasma8.6-10.3FMartin Memorial HospitalCarbon dioxide, total [Moles/volume] in Serum or PlasmaOrdered By: Melvi Qureshi on 92-50-7771CF1 [Moles/Vol]Carbon dioxide, total [Moles/volume] in Serum or Plasma 21.0-31.0Ohio[facility]'Bleness HospitalChloride [Moles/volume] in Serum or PlasmaOrdered By: Melvi Qureshi on 21-68-6320Ggepqhyc [Moles/Vol]Chloride [Moles/volume] in Serum or Arjkeq79-026GlqrpfoqfOhiohealth O'Bleness HospitalComplete Blood Count Auto Diffon 80-76-4849Zvodmnhnu (Bld) [#/Vol]0.0 10*3/uLNormal 0.0-0.2The Formerly [facility] Physician GroupComment on above:Result Comment: PERFORMED BY:[address] [place], [place] [phone] MEDICAL DIRECTORJAJA CATES M.D.Performed By: #### HS TROP, CBC, CUBLD, MG, LACTIC, CMP ####[place] [address] USABasophils/100 WBC (Bld)0.3 %Normal.The Formerly [facility] Physician GroupComment on above:Performed By: #### HS TROP, CBC, CUBLD, MG, LACTIC, CMP ####[place] [address] USAEosinophils (Bld) [#/Vol]0.1 10*3/uLNormal0.0-0.45The Formerly [facility] Physician GroupComment on above:Performed By: #### HS TROP, CBC, CUBLD, MG, LACTIC, CMP ####[place] [address] USAEosinophils/100 WBC (Bld)1.3 %Normal.The [facility] Comment on above:Performed By: #### HS TROP, CBC, CUBLD, MG, LACTIC, CMP ####[place] [address] [place] Erythrocyte distribution width (RBC) [Ratio]17.9 %High12.0-14.8The Formerly [facility] Physician GroupComment on above:Performed By: #### HS TROP, CBC, CUBLD, MG, LACTIC, CMP ####[place] [address] USAHematocrit (Bld) [Volume fraction]29.8 %Low38.8-50.0The Formerly [facility] Physician GroupComment on above:Performed By: #### HS TROP, CBC, CUBLD, MG, LACTIC, CMP ####[place] [address] USAHemoglobin (Bld) [Mass/Vol]9.9 g/dLLow13.0-17.0The Formerly [facility] Physician GroupComment on above:Performed By: #### HS TROP, CBC, CUBLD, MG, LACTIC, CMP ####[place] [address] [place] Lymphocytes (Bld) [#/Vol]0.3 10*3/uLLow1.00-4.8The [facility] Comment on above:Performed By: #### HS TROP, CBC, CUBLD, MG, LACTIC, CMP ####[address] Lymphocytes/100 WBC (Bld)4.2 %Normal.The Formerly [facility] Physician GroupComment on above:Performed By: #### HS TROP, CBC, CUBLD, MG, LACTIC, CMP ####[address] (RBC) [Entitic mass]30.1 tkTtmagz58.5-35.2The Formerly [facility] Physician GroupComment on above: Performed By: #### HS TROP, CBC, CUBLD, MG, LACTIC, CMP ####[address] (RBC) [Entitic vol]90.8 fL Nlkjkh20.5-101The Formerly [facility] Physician GroupComment on above:Performed By: #### HS TROP, CBC, CUBLD, MG, LACTIC, CMP ####[place] [address] USAMean Corpuscular HGB Conc33.2 g/dLNormal 32.5-35.6The Formerly [facility] Physician GroupComment on above:Performed By: #### HS TROP, CBC, CUBLD, MG, LACTIC, CMP ####[place] [address] USAMonocyte Distribution WidthNot performedNormal 0.00-20.00The Formerly [facility] Physician GroupComment on above:Result Comment: Unable to calculate MDW because the Absolute Monocyte Count is <0.8.Performed By: #### HS TROP, CBC, CUBLD, MG, LACTIC, CMP ####[place] [address] USAMonocytes (Bld) [#/Vol]0.0 10*3/uLNormal 0.0-0.8The Formerly [facility] Physician GroupComment on above:Performed By: #### HS TROP, CBC, CUBLD, MG, LACTIC, CMP ####[address] [address] USAMonocytes/100 WBC (Bld)0.4 %Normal.The Formerly [facility] Physician GroupComment on above:Performed By: #### HS TROP, CBC, CUBLD, MG, LACTIC, CMP ####[place] [address] USANeutrophils (Bld) [#/Vol]6.3 10*3/uLNormal1.8-7.7The Formerly [facility] Physician GroupComment on above:Performed By: #### HS TROP, CBC, CUBLD, MG, LACTIC, CMP ####[place] [address] USANeutrophils/100 WBC (Bld)93.8 %Normal.The [facility] Comment on above:Performed By: #### HS TROP, CBC, CUBLD, MG, LACTIC, CMP ####[place] [id number] USANRBC% 0.2 /100{WBC}Normal0-0.5The Formerly [facility] Physician GroupComment on above:Performed By: #### HS TROP, CBC, CUBLD, MG, LACTIC, CMP ####[place] [id number] USAPlatelet mean volume (Bld) [Entitic vol]7.2 fLNormal6.6-10.1The Formerly [facility] Physician GroupComment on above:Performed By: #### HS TROP, CBC, CUBLD, MG, LACTIC, CMP ####[place] [address] USAPlatelets (Bld) [#/Vol]288 10*3/uL Xoxfus603-939Iqs Formerly [facility] Physician GroupComment on above:Performed By: #### HS TROP, CBC, CUBLD, MG, LACTIC, CMP ####[place] [address] USARBC (Bld) [#/Vol]3.28 10*6/uLLow3.90-5.60The Formerly [facility] Physician GroupComment on above:Performed By: #### HS TROP, CBC, CUBLD, MG, LACTIC, CMP ####[place] [address] USAWBC (Bld) [#/Vol]6.5 10*3/uLNormal4.1-10.5The Formerly [facility] Physician GroupComment on above:Performed By: #### HS TROP, CBC, CUBLD, MG, LACTIC, CMP ####[address] [id number] USAComprehensive Metabolic Panelon 68-69-7216Mjfbngt [Mass/Vol]3.4 g/dLLow3.5-5.7The Formerly [facility] Physician GroupComment on above: Performed By: #### HS TROP, CBC, CUBLD, MG, LACTIC, CMP ####[place] [address] USAAlbumin/Globulin [Mass ratio] 1.0 {ratio}NormalThe Formerly [facility] Physician GroupComment on above:Performed By: #### HS TROP, CBC, CUBLD, MG, LACTIC, CMP ####[id number] USAALP [Catalytic activity/Vol]100 U/LNormal 34-104The Formerly [facility] Physician GroupComment on above:Performed By: #### HS TROP, CBC, CUBLD, MG, LACTIC, CMP ####[place] [address] USAALT [Catalytic activity/Vol]6 U/LLow7-52The Formerly [facility] Physician GroupComment on above:Performed By: #### HS TROP, CBC, CUBLD, MG, LACTIC, CMP ####[id number] USAAnion gap [Moles/Vol]9.7 mmol/LNormal6.0-15.0The Formerly [facility] Physician GroupComment on above:Performed By: #### HS TROP, CBC, CUBLD, MG, LACTIC, CMP ####[place] [address] USAAST [Catalytic activity/Vol]13 U/BDbqhvt80-16Kin Formerly [facility] Physician GroupComment on above:Performed By: #### HS TROP, CBC, CUBLD, MG, LACTIC, CMP ####[place] [address] USABilirubin [Mass/Vol]0.6 mg/dLNormal0.3-1.0The [facility]ly [facility] Physician GroupComment on above:Performed By: #### HS TROP, CBC, CUBLD, MG, LACTIC, CMP ####[place] [address] USACalcium [Mass/Vol]9.0 mg/dLNormal8.6-10.3The [facility]ly [facility] Physician GroupComment on above:Performed By: #### HS TROP, CBC, CUBLD, MG, LACTIC, CMP ####[place] [address] USAChloride [Moles/Vol]102 mmol/SLpfxgy91-435Nnw [facility] Physician GroupComment on above:Performed By: #### HS TROP, CBC, CUBLD, MG, LACTIC, CMP ####[place] [address] USACO2 [Moles/Vol]27.2 mmol/AUfrebi49.0-31.0The Formerly [facility] Physician GroupComment on above:Performed By: #### HS TROP, CBC, CUBLD, MG, LACTIC, CMP ####[place] [address] USACreatinine [Mass/Vol]1.62 mg/dLHigh0.70-1.30The Formerly [facility] Physician GroupComment on above:Performed By: #### HS TROP, CBC, CUBLD, MG, LACTIC, CMP ####[place] [address] USACreatinine Clr Calc Ejvhywfe61.97NormColumbia Miami Heart Institute Physician GroupComment on above:Performed By: #### HS TROP, CBC, CUBLD, MG, LACTIC, CMP ####[place] [address] USAEstimated GFR42.119 mL/MinNoAsheville Specialty Hospital Physician GroupComment on above:Performed By: #### HS TROP, CBC, CUBLD, MG, LACTIC, CMP ####[place] [address] USAGlobulin (S) [Mass/Vol]3.3 g/dLNormalThe Formerly [facility] Physician GroupComment on above:Performed By: #### HS TROP, CBC, CUBLD, MG, LACTIC, CMP ####[place] [address] USAGlucose [Mass/Vol]69 mg/qKUwu57-662Qnz [facility] Physician GroupComment on above:Result Comment: Random Glucose Reference Range is dependent on time and content of last meal. Glucose of more than 200 mg/dL in a nonstressed, ambulatory subject supports the diagnosis of Diabetes Mellitus. ADA recommended reference rangePerformed By: #### HS TROP, CBC, CUBLD, MG, LACTIC, CMP ####[place] [address] USAPotassium [Moles/Vol]3.9 mmol/LNormal3.5-5.1The Formerly [facility] Physician GroupComment on above:Performed By: #### HS TROP, CBC, CUBLD, MG, LACTIC, CMP ####[place] [address] USAProtein [Mass/Vol]6.7 g/dLNormal6.4-8.9The Formerly [facility] Physician GroupComment on above:Performed By: #### HS TROP, CBC, CUBLD, MG, LACTIC, CMP ####[place] [address] USASodium [Moles/Vol]135 mmol/DXpo092-337Hvn [facility] Comment on above:Performed By: #### HS TROP, CBC, CUBLD, MG, LACTIC, CMP ####[place] [address] USAUrea nitrogen [Mass/Vol]33 mg/dLHigh7-25The Formerly [facility] Physician GroupComment on above:Performed By: #### HS TROP, CBC, CUBLD, MG, LACTIC, CMP ####[address] [address] USACreatinine [Mass/volume] in Serum or PlasmaOrdered By: Melvi Qureshi on 51-74-1896Obyhltmmoz [Mass/Vol]Creatinine [Mass/volume] in Serum or PlasmaHigh0.70-1.30[facility] HospitalDiff and CBCon 11-33-9391Mtmzypjyptew Ql (Bld)Slight NormalThe Formerly [facility] Physician GroupComment on above:Order Comment: Performed By: #### DIFF CBC ####[place] [id number] USAErythrocyte distribution width (RBC) [Ratio]18.2 % High12.0-14.8The Formerly [facility] Physician GroupComment on above:Order Comment: Performed By: #### DIFF CBC ####[place] [address] USAHematocrit (Bld) [Volume fraction]28.2 %Low38.8-50.0 The Formerly [facility] Physician GroupComment on above:Order Comment: Performed By: #### DIFF CBC ####[address] [address] USAHemoglobin (Bld) [Mass/Vol]9.0 g/dLLow13.0-17.0The Formerly [facility] Physician GroupComment on above:Order Comment: Performed By: #### DIFF CBC ####[address] [address] USAMCH (RBC) [Entitic mass]29.4 qgCynyzh99.5-35.2The Formerly [facility] Physician GroupComment on above:Order Comment: Performed By: #### DIFF CBC ####[place] [address] USAMCV (RBC) [Entitic vol]91.9 fL Ehlffy30.5-101The Formerly [facility] Physician GroupComment on above:Order Comment: Performed By: #### DIFF CBC ####[place] [address] USAMean Corpuscular HGB Conc32.0 g/dLLow32.5-35.6The Formerly [facility] Physician GroupComment on above:Order Comment: Performed By: #### DIFF CBC ####[address] [address] USAMicrocytosisSlightNoAsheville Specialty Hospital Physician GroupComment on above:Order Comment: Performed By: #### DIFF CBC ####[place] [address] USAMonocytes/100 WBC (Bld)29.58 %High0.00-20.00 [facility] Physician GroupComment on above:Order Comment: Result Comment: For adults in ED, MDW > 20.0 may be associated with a higher risk of sepsis during the first 12 hrs of hospital admission The predictive value of MDW for identifying sepsis in patients with hematological abnormalities has not been establishedPerformed By: #### DIFF CBC ####[address] [address] USAOvalocytesSlightNoAsheville Specialty Hospital Physician GroupComment on above:Order Comment: Performed By: #### DIFF CBC ####[address] [address] [place] Platelet EstimateNormalNormalNormColumbia Miami Heart Institute Physician GroupComment on above:Order Comment: Performed By: #### DIFF CBC ####[address] [address] USAPlatelet mean volume (Bld) [Entitic vol]7.3 fLNormal6.6-10.1The Formerly [facility] Physician GroupComment on above: Order Comment: Performed By: #### DIFF CBC ####[address] [address] USAPlatelet MorphologyNormalNormalNormal The Formerly [facility] Physician GroupComment on above:Order Comment: Result Comment: PERFORMED BY:[address] [place], [place] [phone] MEDICAL DIRECTORJAJA CATES M.D. Performed By: #### DIFF CBC ####[address] [address] USAPlatelets (Bld) [#/Vol]217 10*3/dYSlthav511-742Lmx [facility] Physician GroupComment on above:Order Comment: 4PPerformed By: #### DIFF CBC ####[address] [address] USAPoikilocytosisSlightNoAsheville Specialty Hospital Physician GroupComment on above:Order Comment: 4PPerformed By: #### DIFF CBC ####[address] [address] USARBC (Bld) [#/Vol]3.07 10*6/uLLow 3.90-5.60The Formerly [facility] Physician GroupComment on above:Order Comment: 4 Performed By: #### DIFF CBC ####[address] [address] USAStomatocytesSlightNoAsheville Specialty Hospital Physician GroupComment on above:Order Comment: 4Performed By: #### DIFF CBC ####[address] [address] USAWBC (Bld) [#/Vol]21.3 10*3/uLHigh4.1-10.5The Formerly [facility] Physician GroupComment on above:Order Comment: Performed By: #### DIFF CBC ####[address] [address] USADipstick and Microscopicon 62-21-6716Cfkpkhqf,Urine1+HighNone SeenThe Formerly [facility] Physician GroupComment on above:Order Comment: Name Collection Type:: Chou CatheterResult Comment: PERFORMED BY:[place] [address] [address] QUANToshaDaneAMEENABRONX, [place] [phone] MEDICAL DIRECTORJAJA CATES M.D. Performed By: #### ADDONUAPLUS ####[place] [id number] [place] [address] USABilirubin,UrineNormalNegativeMayo Clinic Florida Physician GroupComment on above:Order Comment: Name Collection Type:: Chou Catheter Result Comment: Unable to obtain accurate result due to color interference. Performed By: #### ADDONUAPLUS ####[address] [place] [address] USAGlucose Ql (U)NormalNormalThe Formerly [facility] Physician GroupComment on above:Order Comment: Name Collection Type:: Chou CatheterResult Comment: Unable to obtain accurate result due to color interference.Performed By: #### ADDONUAPLUS ####[address] [place] [address] USAKetones Ql (U)NormalNegativeMayo Clinic Florida Physician GroupComment on above:Order Comment: Name Collection Type:: Chou CatheterResult Comment: Unable to obtain accurate result due to color interference.Performed By: #### ADDONUAPLUS ####[address] [place] [address] USALeukocyte esterase Test strip Ql (U)NormalNegative [facility] Physician GroupComment on above:Order Comment: Name Collection Type:: Chou CatheterResult Comment: Unable to obtain accurate result due to color interference.Performed By: #### ADDONUAPLUS ####[address] [place] [address] USANitrite,UrineNormalNegativeMayo Clinic Florida Physician GroupComment on above:Order Comment: Name Collection Type:: Chou CatheterResult Comment: Unable to obtain accurate result due to color interference.Performed By: #### ADDONUAPLUS ####[address] [place] [address] USAOccult Blood,UrineNormalNegativeMay[facility] Clinic Florida Physician GroupComment on above:Order Comment: Name Collection Type:: Chou CatheterResult Comment: Unable to obtain accurate result due to color interference.Performed By: #### ADDONUAPLUS ####[address] [place] [address] USApH,UrineNormal5.0-9.0[facility] Physician GroupComment on above:Order Comment: Name Collection Type:: Chou CatheterResult Comment: Unable to obtain accurate result due to color interference.Performed By: #### ADDONUAPLUS ####[address] [place] [address] USAProtein,UrineNormalNegativeMayo Clinic Florida Physician GroupComment on above:Order Comment: Name Collection Type:: Chou CatheterResult Comment: Unable to obtain accurate result due to color interference.Performed By: #### ADDONUAPLUS ####[address] [place] [address] USARBC,UrineInnumerableHigh0-4The Formerly [facility] Physician GroupComment on above:Order Comment: Name Collection Type:: Chou CatheterPerformed By: #### ADDONUAPLUS ####[address] [address] USASpecificy Weatherby,Urine1.020Normal 1.001-1.030The Formerly [facility] Physician GroupComment on above:Order Comment: Name Collection Type:: Chou CatheterPerformed By: #### ADDONUAPLUS ####[address] [address] USASquamous Epithelial Cell,Eajxb1-5Brnnzl2-4Mzd [facility] Physician GroupComment on above:Order Comment: Name Collection Type:: Chou CatheterPerformed By: #### ADDONUAPLUS ####[address] [address] [place] Urobilinogen,UrineNormalNormalThe Formerly [facility] Physician GroupComment on above: Order Comment: Name Collection Type:: Chou CatheterResult Comment: Unable to obtain accurate result due to color interference.Performed By: #### ADDONUAPLUS ####[address] [address] [place] WBC,Czhtw50-08Csgy7-8Keb [facility] Physician GroupComment on above:Order Comment: Name Collection Type:: Chou CatheterPerformed By: #### ADDONUAPLUS ####[address] [address] USAECG 12 lead ECGon 86-30-4514UBY 12 lead ECGNormalThe [facility] Eosinophils Auto (Bld) [#/Vol]Ordered By: Melvi Qureshi on 50-74-4646Lqccdvknzuw (Bld) [#/Vol]Automated eosinophil count0.0-0.45[facility] Eosinophils/100 WBC Auto (Bld)Ordered By: Melvi Qureshi on 07-12-2024 Eosinophils/100 WBC (Bld)Automated eosinophil %.[facility] HospitalEosinophils/100 WBC Manual cnt (Bld)Ordered By: Mario Jordan on 07-12-2024 Eosinophils/100 WBC (Bld)Eosinophils/100 leukocytes in Blood by Manual count1- [facility] HospitalEosinophils/100 leukocytes in Blood by Manual countOrdered By: Mario Jordan on 24-48-1727Jozvrrecuyw/100 WBC (Bld)1 %Normal1-3 [facility] HospitalComment on above:Order Comment: 4P/33Performed By: #### DIFF CBC ####[facility] [place] [address] [facility] CENTEREpithelial cells.squamous [#/area] in Urine sediment by Microscopy high power fieldOrdered By: Melvi Qureshi on 05-35-1068Udpmnegdtn cells.squamous LM.HPF (Urine sed) [#/Area]Epithelial cells.squamous [#/area] in Urine sediment by Microscopy high power field0-2FMartin Memorial HospitalEpithelial cells.squamous LM.HPF (Urine sed) [#/Area]0-1 [HPF]0-2FMartin Memorial HospitalErythrocyte distribution width Auto (RBC) [Ratio]Ordered By: Melvi Qureshi on 96-93-1887Fhmrauklrrg distribution width (RBC) [Ratio]Erythrocyte distribution width [Ratio] by Automated pvgwdHxcc99.0-14.8[facility] HospitalErythrocytes [#/area] in Urine sediment by Microscopy high power fieldOrdered By: Melvi Qureshi on 10-28-9279YSJ LM.HPF (Urine sed) [#/Area] Erythrocytes [#/area] in Urine sediment by Microscopy high power fieldHigh0-4 [facility] HospitalRB LM.HPF (Urine sed) [#/Area]Innumerable [HPF]High0-4FMartin Memorial HospitalGlobulin Calc (S) [Mass/Vol]Ordered By: Melvi Qureshi on 76-96-5576Wioheged (S) [Mass/Vol]Serum globulin measurement by calculation (mass/volume)[facility] HospitalGlucose [Mass/volume] in Serum or PlasmaOrdered By: Melvi Qureshi on 90-68-8944Uqyrdfw [Mass/Vol]Glucose [Mass/volume] in Serum or FpzsnzGou67-606PwnihzynfOhiohealth O'Bleness HospitalGlucose [Mass/volume] in Urine by Test stripOrdered By: Melvi Qureshi on 37-34-0600Ycfvwnd Test strip (U) [Mass/Vol]Glucose [Mass/volume] in Urine by Test stripNormalOhiohealth O'Bleness HospitalGlucose Test strip (U) [Mass/Vol]See commentNormWayne HospitalComment on above: Unable to obtain accurate result due to color interference.Hematocrit Auto (Bld) [Volume fraction]Ordered By: Melvi Qureshi on 16-00-6064Usexjxplqn (Bld) [Volume fraction]Hematocrit [Volume Fraction] of Blood by Automated xyawnFpl29.8-50.0 [facility] HospitalHemoglobin Test strip Ql (U)Ordered By: Melvi Qureshi on 46-14-8737Akksxqpgcc Ql (U)Hemoglobin [Presence] in Urine by Test strip NegativeOhiohealth O'Bleness HospitalHemoglobin Ql (U)See commentNegative [facility] HospitalComment on above:Unable to obtain accurate result due to color interference.Hemoglobin [Mass/volume] in BloodOrdered By: Melvi Qureshi on 10-77-4700Ktsvpdgtsp (Bld) [Mass/Vol]Hemoglobin [Mass/volume] in EsvoyOnr58.0-17.0[facility] HospitalKetones Test strip (U) [Mass/Vol]Ordered By: Melvi Qureshi on 70-79-7394Crczqvb (U) [Mass/Vol]Urine ketones measurement by test strip (mass/volume)NegativeOhiohealth O'Bleness HospitalKetones (U) [Mass/Vol]See commentNegativeOhiohealth O'Bleness HospitalComment on above:Unable to obtain accurate result due to color interference.Laboratory - Microbiology and Antimicrobial susceptibilityOrdered By: Melvi Qureshi on 71-31-4901Cqljtenx identified Cx Nom (Bld)Enterococcus faecalisAbnoSt. John of God HospitalBacteria identified Cx Nom (Bld)Pseudomonas aeruginosaAbnoSt. John of God HospitalLactate [Moles/volume] in Serum or PlasmaOrdered By: Mario Jordan on 86-78-3376Gcuzcjx [Moles/Vol]Lactate [Moles/volume] in Serum or PlasmaCritically high0.5-1.9 [facility]leness HospitalLactate [Moles/Vol]2.2 mmol/LCritically high 0.5-1.9[facility] HospitalComment on above:Critical Result : Called to and read back by: LEXIS DARNELL at: 07/13/2024 00:27:29 by:DHLactic Acid reference range has been updated to 0.5 1.9 mmol/L and the critical range of 2.0 or greater.Lactate [Moles/Vol]Lactate [Moles/volume] in Serum or Plasma Critically high0.5-1.9[facility]leness HospitalLactic Acidon 07-12-2024 Lactate [Moles/Vol]2.2 mmol/LOff scale high0.5-1.9[facility] Comment on above:Order Comment: 4P/33Result Comment: Critical Result : Called to and read back by: ALTON HYMAN at: 07/12/2024 19:37:40 by:PAB Lactic Acid reference range has been updated to 0.5 ? 1.9 mmol/L and the critical range of 2.0 or greater.PERFORMED BY:[facility]111AULTMAN HOSPITALDARCI ES[place]ABRONX, [place] [phone] MEDICAL DIRECTORJAJA WHITE M.D.Performed By: #### LACTIC ####[address] [place] [address] USALactate [Moles/Vol]2.3 mmol/LOff scale high 0.5-1.9The Formerly [facility] Physician GroupComment on above:Result Comment: Critical Result : Called to and read back by: DORA DARDEN at: 07/12/2024 16:01:14 by:PAB Lactic Acid reference range has been updated to 0.5 ? 1.9 mmol/L and the critical range of 2.0 or greater.PERFORMED BY:[place] [address] [address] OGLDSTEINDaneAMEENABRONX, [place] [phone] MEDICAL DIRECTORJAJA CATES M.D.Performed By: #### HS TROP, CBC, CUBLD, MG, LACTIC, CMP ####[address] [address] USALactic Acid Reflexon 43-57-6105Zamutr Acid Reflex2.2 mmol/LOff scale high0.5-1.9The [facility] Physician GroupComment on above:Order Comment: CHANGE PER FRANCES PIRES KAHResult Comment: Critical Result : Called to and read back by: LEXIS DARNELL at: 07/13/2024 00:27:29 by:DH Lactic Acid reference range has been updated to 0.5 ? 1.9 mmol/L and the critical range of 2.0 orgreater.PERFORMED BY:[place] [address] [address] [place], [place] [phone] MEDICAL DIRECTORJAJA CATES M.D. Performed By: #### LACTIC RFX ####[address] [address]EIVIzzesv Acid Reflex3.0 mmol/LOff scale high0.5-1.9The Formerly [facility] Physician GroupComment on above:Result Comment: Critical Result : Called to and read back by: KATE DUBON at: 07/12/2024 21:43:37 by:PAB Lactic Acid reference range has been updated to 0.5 ? 1.9 mmol/L and the critical range of 2.0 or greater.PERFORMED BY:[place] [address] [address] [place], [place] [phone] MEDICAL DIRECTORJAJA WHITE M.D.Performed By: #### LACTIC RFX ####[address] [address]XEHRcisaonqj esterase [Presence] in Urine by Test stripOrdered By: Melvi Quershi on 11-30-0038Dmmofvjhd esterase Test strip Ql (U)Leukocyte esterase [Presence] in Urine by Test stripNegativeOhiohealth O'Bleness HospitalLeukocyte esterase Test strip Ql (U)See commentNegative [facility] HospitalComment on above:Unable to obtain accurate result due to color interference.Leukocytes [#/area] in Urine sediment by Microscopy high power fieldOrdered By: Melvi Qureshi on 37-42-5335WEZ LM.HPF (Urine sed) [#/Area]Leukocytes [#/area] in Urine sediment by Microscopy high power fieldHigh0-4FMartin Memorial HospitalWBC LM.HPF (Urine sed) [#/Area]10-19 [HPF]High091 Nguyen StreetLeukocytes [#/volume] corrected for nucleated erythrocytes in Blood by Automated counOrdered By: Melvi Qureshi on 91-44-3944HXN corrected for nucl RBC Auto (Bld) [#/Vol]Leukocytes [#/volume] corrected for nucleated erythrocytes in Blood by Automated coun 4.1-10.5FMartin Memorial HospitalLymphocytes Auto (Bld) [#/Vol]Ordered By: Melvi Qureshi on 97-65-8890Rxibjhqyksu (Bld) [#/Vol]Lymphocytes [#/volume] in Blood by Automated countLow1.00-4.8[facility] Lymphocytes/100 WBC Auto (Bld)Ordered By: Melvi Qureshi on 07-12-2024 Lymphocytes/100 WBC (Bld)Lymphocytes/100 leukocytes in Blood by Automated count. [facility]len[facility] HospitalLymphocytes/100 WBC Manual cnt (Bld)Ordered By: Mario Jordan on 61-72-2002Nuyqoaceoig/100 WBC (Bld)Lymphocytes/100 leukocytes in Blood by Manual makvpLct16-90MokeqjuawOhiohealth O'Bleness HospitalLymphocytes/100 leukocytes in Blood by Manual countOrdered By: Mario Jordan on 07-12-2024 Lymphocytes/100 WBC (Bld)2 %Nhm65-92UhyjselnrOhiohealth O'Bleness HospitalComment on above:Order Comment: 4P/33Performed By: #### DIFF CBC ####[facility] [place] [address] [facility] Auto (RBC) [Entitic mass] Ordered By: Melvi Qureshi on 43-18-8530REO (RBC) [Entitic mass]MCH [Entitic mass] by Automated count27.5-35.2FMorrow County HospitalHC Auto (RBC) [Mass/Vol]Ordered By: Melvi Qureshi on 30-05-2988JIMN (RBC) [Mass/Vol]MCHC [Mass/volume] by Automated count32.5-35.6FMorrow County HospitalV Auto (RBC) [Entitic vol]Ordered By: Melvi Qureshi on 62-13-3888AYG (RBC) [Entitic vol]MCV [Entitic volume] by Automated count83.5-101[facility] HospitalMagnesiumon 63-68-1574Bgpagxvrw [Mass/Vol]1.7 mg/dLLow1.9-2.7The [facility] Physician GroupComment on above:Result Comment: PERFORMED BY:[address] [place], [place] [phone] MEDICAL DIRECTORJAJA CATES M.D.Performed By: #### HS TROP, CBC, CUBLD, MG, LACTIC, CMP ####[facility] [place] [address] USAMagnesium [Mass/volume] in Serum or PlasmaOrdered By: Melvi Qureshi on 26-48-6784Qpveoflqw [Mass/Vol]Magnesium [Mass/volume] in Serum or PlasmaLow 1.9-2.7FMartin Memorial HospitalMonocyte distribution width [Entitic volume] in Blood by AutomatedOrdered By: Melvi Qureshi on 82-24-6993Ggpmmagz distribution width Auto (Bld) [Entitic vol]Monocyte distribution width [Entitic volume] in Blood by AutomatedHigh0.00-20.00[facility] Monocyte distribution width [Entitic volume] in Blood by AutomatedOrdered By: Mario Jordan on 33-06-3040Mapwnauz distribution width Auto (Bld) [Entitic vol] 29.58 %High0.00-20.00[facility] HospitalComment on above:For adults in ED, MDW > 20.0 may be associated with a higher risk of sepsis during the first 12 hrs of hospital admissionThe predictive value of MDW for identifying sepsis in patients with hematological abnormalities has not been establishedMonocytes Auto (Bld) [#/Vol]Ordered By: Melvi Qureshi on 07-12-2024 Monocytes (Bld) [#/Vol]Automated blood monocyte count0.0-0.8[facility]leness HospitalMonocytes/100 WBC Auto (Bld)Ordered By: Melvi Qureshi on 07-12-2024 Monocytes/100 WBC (Bld)Automated monocyte %.[facility] Monocytes/100 WBC Manual cnt (Bld)Ordered By: Mario Jordan on 07-12-2024 Monocytes/100 WBC (Bld)Monocytes/100 leukocytes in Blood by Manual countLow2 [facility] HospitalMonocytes/100 leukocytes in Blood by Manual countOrdered By: Mario Jordan on 81-80-5308Ikpiyoebu/100 WBC (Bld)1 %Low2- [facility] HospitalComment on above:Order Comment: 4P/33Performed By: #### DIFF CBC ####[facility] [address] [place] [address] USANatriuretic peptide B [Mass/Vol]Ordered By: Melvi Qureshi on 87-80-8576Hfxsbgezqnv peptide B (Bld) [Mass/Vol]BNP ser/plasHigh5-100[facility] HospitalNeutrophils Auto (Bld) [#/Vol]Ordered By: Melvi Qureshi on 80-21-1266Eljhmaivamg (Bld) [#/Vol]Neutrophils [#/volume] in Blood by Automated count1.8-7.7FMartin Memorial HospitalNeutrophils/100 WBC Auto (Bld) Ordered By: Melvi Qureshi on 42-67-2256Efrkddqtfos/100 WBC (Bld)Automated neutrophil %.[facility]leness HospitalNiite Test strip Ql (U)Ordered By: Melvi Qureshi on 18-86-2279Nskggky Ql (U)Nitrite [Presence] in Urine by Test stripNegativeOhiohealth O'Bleness HospitalNitrite Ql (U)See commentNegative [facility]leness HospitalComment on above:Unable to obtain accurate result due to color interference.No Panel InformationOrdered By: Melvi Qureshi on 23-61-1175Dbzajjeei ID (NA Multiplex Assay)[facility] AbnormalOhiohealth O'Bleness HospitalAbnormWayne HospitalEnterococcus faecalisAbnoSt. John of God HospitalPseudomonas aeruginosaAbnoSt. John of God Hospital42.119 mL/MinOhiohealth O'Bleness Hospital38.97[facility] HospitalNucleated erythrocytes [Presence] in Blood by Automated countOrdered By: Melvi Qureshi on 50-93-2582Pobulcdan RBC Auto Ql (Bld)Nucleated erythrocytes [Presence] in Blood by Automated count0-0.5FMartin Memorial HospitalPlatelet mean volume Auto (Bld) [Entitic vol]Ordered By: Melvi Qureshi on 73-07-7908Dxpmtfsy mean volume (Bld) [Entitic vol]Platelet mean volume [Entitic volume] in Blood by Automated count6.6-10.1FMartin Memorial HospitalPlatelets Auto (Bld) [#/Vol]Ordered By: Melvi Qureshi on 13-06-6091Zklowjloh (Bld) [#/Vol]Platelets [#/volume] in Blood by Automated mwxfo427-955PuusocetcOhiohealth O'Bleness Hospital Potassium [Moles/volume] in Serum or PlasmaOrdered By: Melvi Qureshi on 07-12-2024 Potassium [Moles/Vol]Potassium [Moles/volume] in Serum or Plasma3.5-5.1FMartin Memorial HospitalProtein Test strip (U) [Mass/Vol]Ordered By: Melvi Qureshi on 60-58-7989Yksgsof (U) [Mass/Vol]Protein [Mass/volume] in Urine by Test strip NegativeOhiohealth O'Bleness HospitalProtein (U) [Mass/Vol]See comment NegativeOhiohealth O'Bleness HospitalComment on above:Unable to obtain accurate result due to color interference.Protein [Mass/volume] in Serum or PlasmaOrdered By: Melvi Qureshi on 39-98-3239Azzehhs [Mass/Vol]Protein [Mass/volume] in Serum or Plasma6.4-8.9[facility]'Bleness HospitalRBC Auto (Bld) [#/Vol]Ordered By: Melvi Qureshi on 77-73-6088WOP (Bld) [#/Vol]Erythrocytes [#/volume] in Blood by Automated countLow3.90-5.60[facility] HospitalRespiratory specimen influenza A virus, influenza B virus, respiratory syncytical virOrdered By: Melvi Qureshi on 50-89-3068WAQE-CoV-2 (COVID-19) RNA SMITHA+probe Ql (Unsp spec)NormalOhiohealth O'Bleness HospitalComment on above: Performed By: #### COVID19 FLU RSV, CEPHEID NEG ####[facility] [address] [place] [address] USASegmented neutrophils/100 WBC Manual cnt (Bld)Ordered By: Mario Jordan on 27-17-4575Tlcwqeqfw neutrophils/100 WBC (Bld)Manual blood segmented neutrophils/100 sfzgabfspfBzzj68-33HeunlnbryHighland District Hospitalegmented neutrophils/100 leukocytes in Blood by Manual countOrdered By: Mario Jordan on 00-29-3426Udaeimcde neutrophils/100 WBC (Bld)93 %Jplx83-80BtvvmdffvOhiohealth O'Bleness HospitalComment on above:Order Comment: 4P/33 Performed By: #### DIFF CBC ####[facility] [address] [place] [address] USASerum or plasma albumin/globulin mass ratioOrdered By: Melvi Qureshi on 20-52-6013Ottnzik/Globulin [Mass ratio]Serum or plasma albumin/globulin mass ratioHighland District Hospitalerum or plasma anion gap determinationOrdered By: Melvi Qureshi on 12-30-6103Plxkl gap [Moles/Vol]Serum or plasma anion gap determination6.0-15.0Highland District Hospitalodium [Moles/volume] in Serum or PlasmaOrdered By: Melvi Qureshi on 12-16-2306Mdskoa [Moles/Vol]Sodium [Moles/volume] in Serum or CuvoilEnn552-502 Highland District Hospitalpecific gravity of Urine by Refractometry Ordered By: Melvi Qureshi on 28-74-0617Ftqbrmah gravity Refractometry (U) [Rel density]Specific gravity of Urine by Refractometry1.001-1.030Highland District Hospitalpecific gravity Refractometry (U) [Rel density]1.0201.001-1.030 High[facility] District Hospitaltomatocytes [Presence] in Blood by Light microscopyOrdered By: Mario Jordan on 85-84-2791Jfokyyaqaeft LM Ql (Bld)Red blood cell stomatocyte detectionHighland District Hospitaltomatocytes LM Ql (Bld)SlightOhiohealth O'Bleness HospitalTroponin I High Sensitivityon 39-09-0777Libqizhm I High Xcqwjwrmgxa72Mcfe8-17N[facility] Comment on above:Result Comment: The Troponin units of report have been changed to meet the Chest Pain Accreditationrequirement, element EC5.M1l2. Troponin units are changed from pg/ml to ng/L. Also, the decimal is removed and results are in whole numbers.PERFORMED BY:[address] [place], [place] [phone] MEDICAL DIRECTORJAJA WHITE M.D.Performed By: #### HS TROP, CBC, CUBLD, MG, LACTIC, CMP ####[address] [address] [facility] Troponin I.cardiac [Mass/volume] in Serum or Plasma by Detection limit <= 0.01 ng/Ordered By: Melvi Qureshi on 68-63-2379Dixedoca I.cardiac DL <= 0.01 ng/mL [Mass/Vol]Troponin I.cardiac [Mass/volume] in Serum or Plasma by Detection limit <= 0.01 ng/High0Ohiohealth O'Bleness HospitalTroponin I.cardiac [Mass/volume] in Serum or Plasma by Detection limit <= 0.01 ng/mLOrdered By: Melvi Qureshi on 16-71-7821Orhvserj I.cardiac DL <= 0.01 ng/mL [Mass/Vol]21 ng/L High0-[facility] O'Bleness HospitalComment on above:The Troponin units of report have been changed to meet the Chest Pain Accreditation requirement, jeremy ment EC5.M1l2. Troponin units are changed from pg/ml to ng/L. Also, the decimal is removed and results are in whole numbers.Urea nitrogen [Mass/volume] in Serum or PlasmaOrdered By: Melvi Qureshi on 17-12-5946Inrq nitrogen [Mass/Vol]Urea nitrogen [Mass/volume] in Serum or PlasmaHigh7-25Ohiohealth O'Bleness HospitalUrine Cultureon 39-50-1851Nsqkrffp identified Cx Nom (U)NormalThe Formerly Park [facility] Health Physician GroupComment on above:Performed By: #### CUU ####[facility] [address] [place] [address] USAUrine appearance determinationOrdered By: Melvi Qureshi on 45-84-3598Qwtzivhqtq (U)Urine appearance AbnormalCleMemorial Health System Marietta Memorial HospitalAppearance (U)TurbidCritically abnormalThe Jewish HospitalComment on above:Order Comment: Name Collection Type:: Chou CatheterPerformed By: #### ADDONUAPLUS ####[facility] [address] [place] [address] USAUrine color determinationOrdered By: Melvi Qureshi on 04-03-4894Wtgbs (U)Urine color AbnormalYellowOhiohealth O'Bleness HospitalColor (U)RedCritically abnormal YellowOhiohealth O'Bleness HospitalComment on above:Order Comment: Name Collection Type:: Chou CatheterPerformed By: #### ADDONUAPLUS ####[facility] [address] [place] [address] USAUrine cultureOrdered By: Rowena Jordan on 52-97-3990Hbywrmvy identified Cx Nom (U)Pseudomonas aeruginosaAbMercy Health St. Anne HospitalBacteria identified Cx Nom (U)Enterococcus faecalisAbMercy Health St. Anne HospitalUrine culture AbnormalOhiohealth O'Bleness HospitalUrine cultureAbMercy Health St. Anne HospitalUrobilinogen Test strip (U) [Mass/Vol]Ordered By: Melvi Qureshi on 79-16-2307Ijgtaxcccwqd (U) [Mass/Vol]Urobilinogen [Mass/volume] in Urine by Test stripNoSt. John of God HospitalUrobilinogen (U) [Mass/Vol]See commentNoSt. John of God HospitalComment on above:Unable to obtain accurate result due to color interference.Urology Office/Clinic Noteon 77-54-5877Fjeacji Office/Clinic NoteUrology Office/Clinic Note Chief Complaint Cysto [...] Prior Dr Good pt. Pt resides at [facility] for rehab. Pt/s daughter is with him today. 1. Urinary retention (R33.9: Retention of urine, unspecified) Pt underwent lumbar decompression w/ fusion 02/21/24. Discharged to [facility] for rehab. Subsequently admitted to [facility] 03/10/2024-03/15/2024 for LIS secondary to acute urinary [...] No recent stone imaging. 4. 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 Elevated risk of periop complications 5. Hypospadias (Q54.9: Hypospadias, unspecified) See procedure section. (more content not included)...[facility] Hospitals Health SystemComment on above:Result Comment: Electronically Signed By: Anup TIDWELL, Trisha Degroot\.br\Date and Time Signed: 07/12/24 09:19EDT\.br\Electronically Co-Signed By: Dulce Maria Brown\.br\Date and Time Co-Signed: 07/12/24 08:58 E DT\.br\Electronically Co-Signed By: Dulce Maria Brown P\.br\Date and Time Co- Signed: 07/12/24 09:02 EDT\.br\Electronically Co-Signed By: Dulce Maria Brown P\.br\Date and Time Co-Signed: 07/12/24 09:05 EDTWBC Auto (Bld) [#/Vol]Ordered By: Melvi Qureshi on 74-18-9437QBG (Bld) [#/Vol]Leukocytes [#/volume] in Blood by Automated count4.1-10.5FMartin Memorial HospitalX-ray reportOrdered By: Ortega Groves on 78-31-5061Gfvrz reportOhiohealth O'Bleness HospitalXR chest 1V portableon 11-41-2555RU chest 1V portableNoAsheville Specialty Hospital Physician GrouppH Test strip (U)Ordered By: Melvi Qureshi on 81-24-5344jA (U)pH of Urine by Test strip5.0-9.0Ohiohealth O'Bleness HospitalpH (U)See comment5.0-9.0 [facility]'Bleness HospitalComment on above:Unable to obtain accurate result due to color interference.Provider Letteron 38-72-0755Sakrgbfb Letter Randi Burris MD [address] [facility], [place] [address] Re: Tavo Jadynroel Date of Visit: 07/11/[address] Burris, Thank you for your referral to my office. Attached you will find the most recent office visit note.Please call if you have any questions or concerns. Sincerely, Tye Pompa MD [address] [facility], [address] [place] [address] The following document(s) were included in the letter: July 11, 2024 15:20:30 EDT - (07/11/2024) Telehealth Office Visit NoteNormal [facility] Memorial HospitalBasophils Auto (Bld) [#/Vol]Ordered By: Sandip Bunting on 58-79-4804Zeaqkidar (Bld) [#/Vol]Automated basophil count0.0-0.2 [facility]Bleness HospitalBasophils [#/volume] in Blood by Automated countOrdered By: Sandip Bunting on 86-01-9389Xnizomqtr (Bld) [#/Vol]0.0 10*3/uL Normal0.0-0.2FMartin Memorial HospitalComment on above:Performed By: #### CBC, ESR, CRP ####[facility] [address] [place] [address] USABasophils/100 WBC Auto (Bld)Ordered By: Sandip Bunting on 07-09-2024 Basophils/100 WBC (Bld)Automated basophil %.[facility] Basophils/100 leukocytes in Blood by Automated countOrdered By: Sandip Bunting on 18-50-5274Mqbooljmu/100 WBC (Bld)0.1 %Normal.Ohiohealth O'Bleness HospitalComment on above:Performed By: #### CBC, ESR, CRP ####[facility] Hzk[address] [place] [address] USAC reactive protein [Mass/volume] in Serum or PlasmaOrdered By: Sandip Bunting on 46-39-2939SOO [Mass/Vol]C reactive protein [Mass/volume] in Serum or PlasmaHigh0.0-0.5 [facility]len[facility] HospitalCRP [Mass/Vol]2.4 mg/dLHigh0.0-0.5FMartin Memorial HospitalC-Reactive Proteinon 44-50-9975N-Reactive Protein2.4 mg/dLHigh0.0-0.5The [facility] Physician GroupComment on above:Result Comment: PERFORMED BY:[address] [place], [place] [phone] MEDICAL DIRECTORJAJA CATES M.D. Performed By: #### CBC, ESR, CRP ####[place] [id number] USAComplete Blood Count Auto Diffon 14-00-0938Tblk Corpuscular HGB Conc32.5 g/yLHqbhjt19.5-35.6The [facility] HospitalComment on above:Performed By: #### CBC, ESR, CRP ####[place] [address] USANRBC%0.0 /100{WBC}Normal0-0.5The [facility] General HospitalComment on above:Performed By: #### CBC, ESR, CRP ####[place] [address] [place] Eosinophils Auto (Bld) [#/Vol]Ordered By: Sandip Bunting on 07-09-2024 Eosinophils (Bld) [#/Vol]Automated eosinophil count0.0-0.45Ohio[facility] O'Bleness HospitalEosinophils [#/volume] in Blood by Automated countOrdered By: Sandip Bunting on 55-95-3696Pxnuqtzvnnr (Bld) [#/Vol]0.0 10*3/uLNormal0.0-0.45 [facility]Bleness HospitalComment on above:Performed By: #### CBC, ESR, CRP ####[place] [address] [place] Eosinophils/100 WBC Auto (Bld)Ordered By: Sandip Bunting on 07-09-2024 Eosinophils/100 WBC (Bld)Automated eosinophil %.Ohio[facility] O'Bleness HospitalEosinophils/100 leukocytes in Blood by Automated countOrdered By: Sandip Bunting on 69-92-9530Izqjakzowvo/100 WBC (Bld)0.4 %Normal.Ohio[facility] O'Bleness HospitalComment on above:Performed By: #### CBC, ESR, CRP ####[address] [address] [facility]ENTERErythrocyte Sedimentation Rateon 61-15-4442HWV (Bld) [Velocity]52 mm/hHigh0-The [facility] Physician GroupComment on above:Result Comment: PERFORMED BY:[address] [place], [place] [phone] MEDICAL DIRECTORJAJA CATES M.D.Performed By: #### CBC, ESR, CRP ####[place] [address] [facility] Erythrocyte distribution width Auto (RBC) [Ratio]Ordered By: Sandip Bunting on 04-70-8176Hkehzedvmnq distribution width (RBC) [Ratio]Erythrocyte distribution width [Ratio] by Automated jhsxbKjxf28.0-14.[address] [place] [address] Erythrocyte distribution width [Ratio] by Automated countOrdered By: Sandip Bunting on 19-66-5846Cleoecppvff distribution width (RBC) [Ratio]17.6 %High 12.0-14.[address] [place], [place] [address]Comment on above:Performed By: #### CBC, ESR, CRP ####[place] [address] USAErythrocyte sedimentation rate by Photometric methodOrdered By: Sandip Bunting on 90-06-1924EKI Photometric method (Bld) [Velocity]Erythrocyte sedimentation rate by Photometric methodWebster County Memorial HospitalCentervilleR Photometric method (Bld) [Velocity]52 mm/hrWebster County Memorial Hospital0-19Ohio[facility] O'Bleness HospitalErythrocytes [#/volume] in Blood by Automated countOrdered By: Sandip Bunting on 74-34-7835CME (Bld) [#/Vol]3.01 10*6/uLLow3.90-5.60[facility]'Bleness HospitalComment on above:Performed By: #### CBC, ESR, CRP ####[place] [id number] [place] [address] [place] Hematocrit Auto (Bld) [Volume fraction]Ordered By: Sandip Bunting on 07-09-2024 Hematocrit (Bld) [Volume fraction]Hematocrit [Volume Fraction] of Blood by Automated fectwMds81.8-50.0[facility]'Bleness HospitalHematocrit [Volume Fraction] of Blood by Automated countOrdered By: Sandip Bunting on 07-09-2024 Hematocrit (Bld) [Volume fraction]27.1 %Low38.8-50.0[facility] O'Bleness HospitalComment on above:Performed By: #### CBC, ESR, CRP ####[place] [id number] [place] [id number] USAHemoglobin [Mass/volume] in BloodOrdered By: Sandip Bunting on 94-53-2825Ujtukovqhw (Bld) [Mass/Vol] Hemoglobin [Mass/volume] in QchujMec09.0-17.0[facility] Hemoglobin (Bld) [Mass/Vol]8.8 g/dLLow13.0-17.0[facility] Comment on above:Performed By: #### CBC, ESR, CRP ####[place] [address] USALeukocytes [#/volume] corrected for nucleated erythrocytes in Blood by Automated counOrdered By: Sandip Bunting on 93-11-6947ARK corrected for nucl RBC Auto (Bld) [#/Vol]Leukocytes [#/volume] corrected for nucleated erythrocytes in Blood by Automated coun4.1-10.5FMartin Memorial HospitalWBC corrected for nucl RBC Auto (Bld) [#/Vol]8.1 10*3/uL 4.1-10.5FMartin Memorial HospitalLeukocytes [#/volume] in Blood by Automated countOrdered By: Sandip Bunting on 32-51-8040SSD (Bld) [#/Vol]8.1 10*3/uLNormal4.1-10.5FMartin Memorial HospitalComment on above:Performed By: #### CBC, ESR, CRP ####[address] [address] USALymphocytes Auto (Bld) [#/Vol]Ordered By: Sandip Bunting on 70-04-4452Pfgnvnlkdem (Bld) [#/Vol]Lymphocytes [#/volume] in Blood by Automated count1.00-4.8Ohio[facility] O'Bleness HospitalLymphocytes [#/volume] in Blood by Automated countOrdered By: Sandip Bunting on 62-46-2628Ijlcqajgtxl (Bld) [#/Vol]1.0 10*3/uLNormal1.00-4.8[facility]'Bleness HospitalComment on above:Performed By: #### CBC, ESR, CRP ####[place] [address] USALymphocytes/100 WBC Auto (Bld)Ordered By: Sandip Bunting on 79-10-3133Eewknjarjmd/100 WBC (Bld)Lymphocytes/100 leukocytes in Blood by Automated count.[facility] O'Bleness HospitalLymphocytes/100 leukocytes in Blood by Automated countOrdered By: Sandip Bunting on 07-09-2024 Lymphocytes/100 WBC (Bld)12.5 %Normal.[facility] O'Bleness HospitalComment on above:Performed By: #### CBC, ESR, CRP ####[place] [address] [facility] Auto (RBC) [Entitic mass]Ordered By: Sandip Bunting on 58-54-6965YXS (RBC) [Entitic mass]MCH [Entitic mass] by Automated count27.5-35.2FDetwiler Memorial Hospital [Entitic mass] by Automated countOrdered By: Sandip Bunting on 31-92-8698WVN (RBC) [Entitic mass] 29.3 bcFhleiu65.5-35.2FMartin Memorial HospitalComment on above: Performed By: #### CBC, ESR, CRP ####[place] [address] USAMCHC Auto (RBC) [Mass/Vol]Ordered By: Sandip Bunting on 63-44-1378BSLP (RBC) [Mass/Vol]MCHC [Mass/volume] by Automated count 32.5-35.6FMorrow County HospitalHC (RBC) [Mass/Vol]32.5 g/dL 32.5-35.6FMartin Memorial HospitalMCV Auto (RBC) [Entitic vol]Ordered By: Sandip Bunting on 82-74-1060XUB (RBC) [Entitic vol]MCV [Entitic volume] by Automated count83.-101K[facility]tering Health Greene MemorialV [Entitic volume] by Automated countOrdered By: Sandip Bunting on 52-62-9554CCR (RBC) [Entitic vol] 90.1 wMYvsktn30.02 Wilson StreetComment on above:Performed By: #### CBC, ESR, CRP ####[place] [address] USAMonocytes Auto (Bld) [#/Vol]Ordered By: Sandip Bunting on 67-54-7423Wjgefdqwc (Bld) [#/Vol]Automated blood monocyte count 0.0-0.8[facility]'Bleness HospitalMonocytes [#/volume] in Blood by Automated countOrdered By: Sandip Bunting on 18-59-5863Hhbvtsees (Bld) [#/Vol] 0.6 10*3/uLNormal0.0-0.8[facility]'Bleness HospitalComment on above: Performed By: #### CBC, ESR, CRP ####[place] [address] USAMonocytes/100 WBC Auto (Bld)Ordered By: Sandip Bunting on 66-44-7869Abzlzjqql/100 WBC (Bld)Automated monocyte %.[facility]'Blen[facility] HospitalMonocytes/100 leukocytes in Blood by Automated count Ordered By: Sandip Bunting on 17-57-6229Drhoqkphk/100 WBC (Bld)7.3 %Normal. [facility]'Bleness HospitalComment on above:Performed By: #### CBC, ESR, CRP ####[place] [address] [place] Neutrophils Auto (Bld) [#/Vol]Ordered By: Sandip Bunting on 07-09-2024 Neutrophils (Bld) [#/Vol]Neutrophils [#/volume] in Blood by Automated count 1.8-7.7FMartin Memorial HospitalNeutrophils [#/volume] in Blood by Automated countOrdered By: Sandip Bunting on 95-09-1077Jdvjjsmusoq (Bld) [#/Vol] 6.4 10*3/uLNormal1.8-7.7FMartin Memorial HospitalComment on above: Performed By: #### CBC, ESR, CRP ####[facility] [address] [place] [address] USANeutrophils/100 WBC Auto (Bld)Ordered By: Sandip Bunting on 07-14-9340Cebzxsydslp/100 WBC (Bld)Automated neutrophil %.[facility]'Bleness HospitalNeutrophils/100 leukocytes in Blood by Automated count Ordered By: Sandip Bunting on 40-72-4091Hfmjklkhvnb/100 WBC (Bld)79.7 %Normal. [facility]'Bleness HospitalComment on above:Performed By: #### CBC, ESR, CRP ####[facility] [address] [place] [address] Nucleated erythrocytes [Presence] in Blood by Automated countOrdered By: Sandip Bunting on 05-85-6055Rnrqmfyrl RBC Auto Ql (Bld)Nucleated erythrocytes [Presence] in Blood by Automated count0-0.5FMartin Memorial Hospital Nucleated RBC Auto Ql (Bld)0.0 /100{WBC}0-0.5FMartin Memorial Hospital Platelet mean volume Auto (Bld) [Entitic vol]Ordered By: Sandip Bunting on 47-23-9137Javcqipd mean volume (Bld) [Entitic vol]Platelet mean volume [Entitic volume] in Blood by Automated count6.6-10.1FMartin Memorial Hospital Platelet mean volume [Entitic volume] in Blood by Automated countOrdered By: Sandip Bunting on 06-00-0652Uvncdjni mean volume (Bld) [Entitic vol]7.8 fLNormal 6.6-10.1FMartin Memorial HospitalComment on above:Performed By: #### CBC, ESR, CRP ####[facility] [address] [place] [address] USAPlatelets Auto (Bld) [#/Vol]Ordered By: Sandip Bunting on 07-09-2024 Platelets (Bld) [#/Vol]Platelets [#/volume] in Blood by Automated -944 [facility]'Bleness HospitalPlatelets [#/volume] in Blood by Automated countOrdered By: Sandip Bunting on 34-24-6355Jkuxgqlvy (Bld) [#/Vol]234 10*3/uL Shgdcm692-684DjjooszwuOhiohealth O'Bleness HospitalComment on above:Performed By: #### CBC, ESR, CRP ####[facility] [place] [address] USARBC Auto (Bld) [#/Vol]Ordered By: Sandip Bunting on 57-64-9825UJI (Bld) [#/Vol]Erythrocytes [#/volume] in Blood by Automated countLow3.90-5.60 [facility]Bleness HospitalWBC Auto (Bld) [#/Vol]Ordered By: Sandip Bunting on 20-08-7686UEC (Bld) [#/Vol]Leukocytes [#/volume] in Blood by Automated count4.1-10.5FMartin Memorial HospitalBasophils Auto (Bld) [#/Vol]Ordered By: Sandip Bunting on 30-84-2527Hboivmsjr (Bld) [#/Vol]Automated basophil count0.0-0.2FMartin Memorial HospitalBasophils [#/volume] in Blood by Automated countOrdered By: Sandip Bunting on 34-80-6941Qvwxonabs (Bld) [#/Vol]0.1 10*3/uLNormal0.0-0.2FMartin Memorial HospitalComup health system on above:Performed By: #### CBC, ESR, CRP ####[facility] [place] [address] USABasophils/100 WBC Auto (Bld)Ordered By: Sandip Bunting on 67-68-2420Rjawpqqdf/100 WBC (Bld)Automated basophil %.[facility]Blen[facility] HospitalBasophils/100 leukocytes in Blood by Automated count Ordered By: Sandip Aguirre on 42-41-4177Cupigoocv/100 WBC (Bld)1.3 %Normal. [facility]leness HospitalComment on above:Performed By: #### CBC, ESR, CRP ####[address] [address] USAC reactive protein [Mass/volume] in Serum or PlasmaOrdered By: Sandip Aguirre on 51-15-0339HHW [Mass/Vol]C reactive protein [Mass/volume] in Serum or PlasmaHigh 0.0-0.5FMartin Memorial HospitalCRP [Mass/Vol]8.0 mg/dLHigh0.0-0.5 [facility] HospitalC-Reactive Proteinon 77-16-8383Z-Reactive Protein8.0 mg/dLHigh0.0-0.5The Formerly [facility] Physician GroupComment on above:Result Comment: PERFORMED BY:[address] [place], [place] [phone] MEDICAL DIRECTORJAJA CATES M.D. Performed By: #### CBC, ESR, CRP ####[address] [address] USAComplete Blood Count Auto Diffon 60-62-9935Mebk Corpuscular HGB Conc32.9 g/vBCtysej44.5-35.6The Formerly [facility] Physician GroupComment on above:Performed By: #### CBC, ESR, CRP ####[address] [address] USANRBC%0.0 /100{WBC}Normal0-0.5The Formerly [facility] Physician GroupComment on above:Performed By: #### CBC, ESR, CRP ####[address] [address] [place] Eosinophils Auto (Bld) [#/Vol]Ordered By: Sandip Agurire on 07-02-2024 Eosinophils (Bld) [#/Vol]Automated eosinophil count0.0-0.45FirCommunity Regional Medical CenterEosinophils [#/volume] in Blood by Automated countOrdered By: Sandip Bunting on 55-36-4569Xvfhbrqbigx (Bld) [#/Vol]0.4 10*3/uLNormal0.0-0.45 [facility] HospitalComment on above:Performed By: #### CBC, ESR, CRP ####[place] [address] [facility] Eosinophils/100 WBC Auto (Bld)Ordered By: Sandip Bunting on 07-02-2024 Eosinophils/100 WBC (Bld)Automated eosinophil %.[facility]'Blen[facility] HospitalEosinophils/100 leukocytes in Blood by Automated countOrdered By: Sandip Bunting on 63-34-2132Povepdufpwk/100 WBC (Bld)6.4 %Normal.[facility]'Bleness HospitalComment on above:Performed By: #### CBC, ESR, CRP ####[place] [address] [facility]ENTERErythrocyte Sedimentation Rateon 77-96-4061FPZ (Bld) [Velocity]95 mm/hHigh0-19The Formerly [facility] Physician GroupComment on above:Result Comment: PERFORMED BY:[address] [place], [place] [phone] MEDICAL DIRECTORMOKAIT CATES M.D.Performed By: #### CBC, ESR, CRP ####[place] [address] [facility] Erythrocyte distribution width Auto (RBC) [Ratio]Ordered By: Sandip Bunting on 30-45-5529Wwekbyftpdx distribution width (RBC) [Ratio]Erythrocyte distribution width [Ratio] by Automated ihxyvXlei86.0-14.8[facility] Erythrocyte distribution width [Ratio] by Automated countOrdered By: Sandip Bunting on 62-27-0434Ixitmjmdagf distribution width (RBC) [Ratio]17.1 %High 12.0-14.8[facility]Bleness HospitalComment on above:Performed By: #### CBC, ESR, CRP ####[place] [address] USAErythrocyte sedimentation rate by Photometric methodOrdered By: Sandip Aguirre on 04-01-4578YZM Photometric method (Bld) [Velocity]Erythrocyte sedimentation rate by Photometric method25 Davis StreetESR Photometric method (Bld) [Velocity]95 mm/hr25 Davis StreetErythrocytes [#/volume] in Blood by Automated countOrdered By: Sandip Bunting on 69-23-8516KUK (Bld) [#/Vol]2.89 10*6/uLLow3.90-5.60[facility]len[facility] HospitalComment on above:Performed By: #### CBC, ESR, CRP ####[facility] [address] [place] [address] [place] Hematocrit Auto (Bld) [Volume fraction]Ordered By: Sandip Bunting on 07-02-2024 Hematocrit (Bld) [Volume fraction]Hematocrit [Volume Fraction] of Blood by Automated xayeiGxb46.8-50.0[facility]'Bleness HospitalHematocrit [Volume Fraction] of Blood by Automated countOrdered By: Sandip Aguirre on 07-02-2024 Hematocrit (Bld) [Volume fraction]25.7 %Low38.8-50.0[facility]len[facility] HospitalComment on above:Performed By: #### CBC, ESR, CRP ####[place] [address] USAHemoglobin [Mass/volume] in BloodOrdered By: Sandip Aguirre on 48-72-9380Jauitvbsoe (Bld) [Mass/Vol] Hemoglobin [Mass/volume] in XdtisRvd82.0-17.0[facility] Hemoglobin (Bld) [Mass/Vol]8.5 g/dLLow13.0-17.0[facility] Comment on above:Performed By: #### CBC, ESR, CRP ####[place] [address] USALeukocytes [#/volume] corrected for nucleated erythrocytes in Blood by Automated counOrdered By: Sandip Aguirre on 52-62-9881RAP corrected for nucl RBC Auto (Bld) [#/Vol]Leukocytes [#/volume] corrected for nucleated erythrocytes in Blood by Automated coun4.1-10.5FMartin Memorial HospitalWBC corrected for nucl RBC Auto (Bld) [#/Vol]6.7 10*3/uL 4.1-10.5FMartin Memorial HospitalLeukocytes [#/volume] in Blood by Automated countOrdered By: Sandip Bunting on 53-59-1662OWR (Bld) [#/Vol]6.7 10*3/uLNormal4.1-10.5FMartin Memorial HospitalComment on above:Performed By: #### CBC, ESR, CRP ####[facility] [address] [place] [address] USALymphocytes Auto (Bld) [#/Vol]Ordered By: Sandip Aguirre on 98-85-6024Gwkonrmhwyc (Bld) [#/Vol]Lymphocytes [#/volume] in Blood by Automated count1.00-4.8[facility]'Bleness HospitalLymphocytes [#/volume] in Blood by Automated countOrdered By: Sandip Bunting on 48-36-2713Srmefmtrhjz (Bld) [#/Vol]1.4 10*3/uLNormal1.00-4.8[facility]len[facility] HospitalComment on above:Performed By: #### CBC, ESR, CRP ####[place] [address] [place] [address] USALymphocytes/100 WBC Auto (Bld)Ordered By: Sandip Aguirre on 56-23-0609Atsnzrlqmlv/100 WBC (Bld)Lymphocytes/100 leukocytes in Blood by Automated count.[facility] HospitalLymphocytes/100 leukocytes in Blood by Automated countOrdered By: Sandip Bunsantiago on 07-02-2024 Lymphocytes/100 WBC (Bld)21.2 %Normal.[facility]len[facility] HospitalComment on above:Performed By: #### CBC, ESR, CRP ####[address] [place] [address] [facility] Auto (RBC) [Entitic mass]Ordered By: Sandip Bunting on 19-38-9728JBZ (RBC) [Entitic mass]MCH [Entitic mass] by Automated count27.5-35.2FDetwiler Memorial Hospital [Entitic mass] by Automated countOrdered By: Sandip Bunting on 22-40-9361ILG (RBC) [Entitic mass] 29.2 jkClaoqz30.5-35.2FMartin Memorial HospitalComment on above: Performed By: #### CBC, ESR, CRP ####[facility] [address] [place] [id number] [facility] Auto (RBC) [Mass/Vol]Ordered By: Sandip Bunting on 53-70-0410OGCI (RBC) [Mass/Vol]MCHC [Mass/volume] by Automated count 32.5-35.6FMorrow County HospitalHC (RBC) [Mass/Vol]32.9 g/dL 32.5-35.6FMorrow County HospitalV Auto (RBC) [Entitic vol]Ordered By: Sandip Bunting on 78-33-7174YTT (RBC) [Entitic vol]MCV [Entitic volume] by Automated count83.5-101[facility] MemorialV [Entitic volume] by Automated countOrdered By: Sandip Bunting on 81-59-7461OEZ (RBC) [Entitic vol] 88.9 xUKjbxca01.5-101[facility] HospitalComment on above:Performed By: #### CBC, ESR, CRP ####[id number] USAMonocytes Auto (Bld) [#/Vol]Ordered By: Sandip Bunting on 22-75-9843Pyqgkuhqg (Bld) [#/Vol]Automated blood monocyte count 0.0-0.8[facility] HospitalMonocytes [#/volume] in Blood by Automated countOrdered By: Sandip Bunting on 57-79-7070Kzrivfsxq (Bld) [#/Vol] 0.3 10*3/uLNormal0.0-0.8[facility] HospitalComment on above: Performed By: #### CBC, ESR, CRP ####[facility] [address] [place] [address] USAMonocytes/100 WBC Auto (Bld)Ordered By: Sandip Bunting on 65-69-0045Vjakishds/100 WBC (Bld)Automated monocyte %.[facility] HospitalMonocytes/100 leukocytes in Blood by Automated count Ordered By: Sandip Bunting on 65-52-5396Ovretedsu/100 WBC (Bld)4.8 %Normal. [facility] HospitalComment on above:Performed By: #### CBC, ESR, CRP ####[facility] [address] [place] [id number] [facility] Neutrophils Auto (Bld) [#/Vol]Ordered By: Sandip Bunting on 07-02-2024 Neutrophils (Bld) [#/Vol]Neutrophils [#/volume] in Blood by Automated count 1.8-7.7FMartin Memorial HospitalNeutrophils [#/volume] in Blood by Automated countOrdered By: Sandip Bunting on 03-56-1838Vnvadhwkpci (Bld) [#/Vol] 4.4 10*3/uLNormal1.8-7.7FMartin Memorial HospitalComment on above: Performed By: #### CBC, ESR, CRP ####[facility] [address] [place] [id number] USANeutrophils/100 WBC Auto (Bld)Ordered By: Sandip Bunting on 60-12-3155Wfotmcgtlzx/100 WBC (Bld)Automated neutrophil %.[facility] HospitalNeutrophils/100 leukocytes in Blood by Automated count Ordered By: Sandip Bunting on 63-24-7745Gcqkzyqgnto/100 WBC (Bld)66.3 %Normal. [facility]leness HospitalComment on above:Performed By: #### CBC, ESR, CRP ####[facility] [address] [place], [place] [address] [facility] Nucleated erythrocytes [Presence] in Blood by Automated countOrdered By: Sandip Bunting on 30-06-5023Skxfzaiku RBC Auto Ql (Bld)Nucleated erythrocytes [Presence] in Blood by Automated count0-0.5FMartin Memorial Hospital Nucleated RBC Auto Ql (Bld)0.0 /100{WBC}0-0.5FMartin Memorial Hospital Platelet mean volume Auto (Bld) [Entitic vol]Ordered By: Sandip Bunting on 98-42-0336Jhvpqywc mean volume (Bld) [Entitic vol]Platelet mean volume [Entitic volume] in Blood by Automated count6.6-10.1FMartin Memorial Hospital Platelet mean volume [Entitic volume] in Blood by Automated countOrdered By: Sandip Bunting on 18-42-9727Tavvqikl mean volume (Bld) [Entitic vol]7.7 fLNormal 6.6-10.1FMartin Memorial HospitalComment on above:Performed By: #### CBC, ESR, CRP ####[facility] [address] [place] [address] USAPlatelets Auto (Bld) [#/Vol]Ordered By: Sandip Bunting on 07-02-2024 Platelets (Bld) [#/Vol]Platelets [#/volume] in Blood by Automated vnaqr471-086 [facility] HospitalPlatelets [#/volume] in Blood by Automated countOrdered By: Snadip Bunting on 90-61-9725Rzndryvtm (Bld) [#/Vol]180 10*3/uL Mxeubx880-248KskwfndpoOhiohealth O'Bleness HospitalComment on above:Performed By: #### CBC, ESR, CRP ####[facility] [address] [place] [address] USARBC Auto (Bld) [#/Vol]Ordered By: Sandip Bunting on 16-09-5372VGQ (Bld) [#/Vol]Erythrocytes [#/volume] in Blood by Automated countLow3.90-5.60 [facility] HospitalWBC Auto (Bld) [#/Vol]Ordered By: Sandip Bunting on 60-15-0498EZI (Bld) [#/Vol]Leukocytes [#/volume] in Blood by Automated count4.1-10.5FMartin Memorial HospitalProvider Letteron 78-10-8625Ubnjarcl Letter Tavo Mcintyre, [address], [address] [place] [address] Re: Tavo Slaterulett Date of Visit: 06/26/[address] Mcintyre, Thank you for your referral to my office. Attached you will find the most recent office visit note.Please call if you have any questions or concerns. Sincerely, Tye Pompa MD [address], [address] [place] [address] The following document(s) were included in the letter: June 26, 2024 15:49:54 EDT - (06/26/2024) Telehealth Office Visit NoteNormal [facility] HospitalBasophils Auto (Bld) [#/Vol]Ordered By: Sandip Bunting on 27-54-1178Zwbyaecmv (Bld) [#/Vol]Automated basophil count0.0-0.2 [facility] HospitalBasophils [#/volume] in Blood by Automated countOrdered By: Sandip Bunting on 21-02-5523Crfspujsc (Bld) [#/Vol]0.1 10*3/uL Normal0.0-0.2FMartin Memorial HospitalComment on above:Performed By: #### ESR, CBC, CRP ####[facility] N[address] [place] [address] USABasophils/100 WBC Auto (Bld)Ordered By: Sandip Mirzating on 06-25-2024 Basophils/100 WBC (Bld)Automated basophil %.[facility] Basophils/100 leukocytes in Blood by Automated countOrdered By: Sandip Bunting on 02-52-1858Jpnchtgkn/100 WBC (Bld)0.9 %Normal.[facility]leness HospitalComment on above:Performed By: #### ESR, CBC, CRP ####[facility] [address] [place] [address] USAC reactive protein [Mass/volume] in Serum or PlasmaOrdered By: Sandip Bunting on 83-14-5371OZH [Mass/Vol]C reactive protein [Mass/volume] in Serum or PlasmaHigh0.0-0.5 [facility] HospitalCRP [Mass/Vol]6.5 mg/dLHigh0.0-0.5FMartin Memorial HospitalC-Reactive Proteinon 71-70-0175H-Reactive Protein6.5 mg/dLHigh0.0-0.5The [facility] Physician GroupComment on above:Result Comment: PERFORMED BY:[address] [place], [place] [phone] MEDICAL DIRECTORJAJA CATES M.D. Performed By: #### ESR, CBC, CRP ####[address] [address] USAComplete Blood Count Auto Diffon 44-18-4640Gdul Corpuscular HGB Conc33.3 g/rGIawhyn71.5-35.6The [facility] Physician [facility] HospitalComment on above:Performed By: #### ESR, CBC, CRP ####[address] [address] USANRBC%0.1 /100{WBC}Normal0-0.5[facility] Physician [facility] General HospitalComment on above:Performed By: #### ESR, CBC, CRP ####[address] [address] [place] Eosinophils Auto (Bld) [#/Vol]Ordered By: Sandip Bunting on 06-25-2024 Eosinophils (Bld) [#/Vol]Automated eosinophil count0.0-0.45[facility] HospitalEosinophils [#/volume] in Blood by Automated countOrdered By: Sandip Bunting on 82-90-4761Kofnbyyxygj (Bld) [#/Vol]0.3 10*3/uLNormal0.0-0.45 [facility] HospitalComment on above:Performed By: #### ESR, CBC, CRP ####[address] [place] Eosinophils/100 WBC Auto (Bld)Ordered By: Sandip Bunting on 06-25-2024 Eosinophils/100 WBC (Bld)Automated eosinophil %.[facility] HospitalEosinophils/100 leukocytes in Blood by Automated countOrdered By: Sandip Bunting on 41-59-1205Tlbrbuwfgby/100 WBC (Bld)4.4 %Normal.[facility] HospitalComment on above:Performed By: #### ESR, CBC, CRP ####[address] [place] [id number] USAErythrocyte Sedimentation Rateon 29-29-5788IRC (Bld) [Velocity]79 mm/hHigh0-19The [facility] Physician GroupComment on above:Result Comment: PERFORMED BY:[address] [place], [place] [phone] MEDICAL DIRECTORJAJA CATES M.D.Performed By: #### ESR, CBC, CRP ####[address] [place] [id number] [facility] Erythrocyte distribution width Auto (RBC) [Ratio]Ordered By: Sandip Bunting on 86-31-6731Ctctpogqhns distribution width (RBC) [Ratio]Erythrocyte distribution width [Ratio] by Automated mrvjkEnvv70.0-14.8[facility] Erythrocyte distribution width [Ratio] by Automated countOrdered By: Sandip Bunting on 23-63-0434Cdlybhsolur distribution width (RBC) [Ratio]16.7 %High 12.0-14.[address] [place], [place] [address]Comment on above:Performed By: #### ESR, CBC, CRP ####[address] USAErythrocyte sedimentation rate by Photometric methodOrdered By: Sandip Bunting on 45-58-1115EUX Photometric method (Bld) [Velocity]Erythrocyte sedimentation rate by Photometric methodHigh0-19[facility] HospitalESR Photometric method (Bld) [Velocity]79 mm/hrWebster County Memorial Hospital0-19[facility] HospitalErythrocytes [#/volume] in Blood by Automated countOrdered By: Sandip Bunting on 65-73-5810ITU (Bld) [#/Vol]2.81 10*6/uLLow3.90-5.60[facility] HospitalComment on above:Performed By: #### ESR, CBC, CRP ####[address] [place] [address] [place] Hematocrit Auto (Bld) [Volume fraction]Ordered By: Sandip Bunting on 06-25-2024 Hematocrit (Bld) [Volume fraction]Hematocrit [Volume Fraction] of Blood by Automated lfdviEdr72.8-50.0[facility] HospitalHematocrit [Volume Fraction] of Blood by Automated countOrdered By: Sandip Bunting on 06-25-2024 Hematocrit (Bld) [Volume fraction]24.4 %Low38.8-50.0[facility] HospitalComment on above:Performed By: #### ESR, CBC, CRP ####[address] USAHemoglobin [Mass/volume] in BloodOrdered By: Sandip Bunting on 16-61-7727Jyeynzdpie (Bld) [Mass/Vol] Hemoglobin [Mass/volume] in FewlpYsu96.0-17.0[facility] Hemoglobin (Bld) [Mass/Vol]8.1 g/dLLow13.0-17.0[facility] Comment on above:Performed By: #### ESR, CBC, CRP ####[address] USALeukocytes [#/volume] corrected for nucleated erythrocytes in Blood by Automated counOrdered By: Sandip Bunting on 26-69-8857TOY corrected for nucl RBC Auto (Bld) [#/Vol]Leukocytes [#/volume] corrected for nucleated erythrocytes in Blood by Automated coun4.1-10.5FMartin Memorial HospitalWBC corrected for nucl RBC Auto (Bld) [#/Vol]8.0 10*3/uL 4.1-10.5FMartin Memorial HospitalLeukocytes [#/volume] in Blood by Automated countOrdered By: Sandip Bunting on 11-18-5847TNM (Bld) [#/Vol]8.0 10*3/uLNormal4.1-10.5FMartin Memorial HospitalComment on above:Performed By: #### ESR, CBC, CRP ####[address] USALymphocytes Auto (Bld) [#/Vol]Ordered By: Sandip Bunting on 07-24-1046Mehqugqgxrr (Bld) [#/Vol]Lymphocytes [#/volume] in Blood by Automated count1.00-4.8[facility] HospitalLymphocytes [#/volume] in Blood by Automated countOrdered By: Sandip Bunting on 80-87-7056Cymmlpozftq (Bld) [#/Vol]1.4 10*3/uLNormal1.00-4.8[facility] HospitalComment on above:Performed By: #### ESR, CBC, CRP ####[facility] [address] [place], [place] [address] USALymphocytes/100 WBC Auto (Bld)Ordered By: Sandip Bunting on 56-01-0096Bfntrvwhsja/100 WBC (Bld)Lymphocytes/100 leukocytes in Blood by Automated count.[facility]len[facility] HospitalLymphocytes/100 leukocytes in Blood by Automated countOrdered By: Sandip Bunting on 06-25-2024 Lymphocytes/100 WBC (Bld)17.6 %Normal.[facility] HospitalComment on above:Performed By: #### ESR, CBC, CRP ####[facility] [address] [place], [place] [address] [facility] Auto (RBC) [Entitic mass]Ordered By: Sandip Bunting on 99-02-5530ESA (RBC) [Entitic mass]MCH [Entitic mass] by Automated count27.5-35.2FDetwiler Memorial Hospital [Entitic mass] by Automated countOrdered By: Sandip Bunting on 02-96-0087QOT (RBC) [Entitic mass] 29.0 btBozgzj99.5-35.2FMartin Memorial HospitalComment on above: Performed By: #### ESR, CBC, CRP ####[place] [address] [facility] Auto (RBC) [Mass/Vol]Ordered By: Sandip Bunting on 09-52-2519JODH (RBC) [Mass/Vol]MCHC [Mass/volume] by Automated count 32.5-35.6FMartin Memorial HospitalMCHC (RBC) [Mass/Vol]33.3 g/dL 32.5-35.6FMartin Memorial HospitalMCV Auto (RBC) [Entitic vol]Ordered By: Sandip Bunting on 88-85-0245SIB (RBC) [Entitic vol]MCV [Entitic volume] by Automated count83.5-101[facility] HospitalMCV [Entitic volume] by Automated countOrdered By: Sandip Bunting on 95-70-4143ATJ (RBC) [Entitic vol] 87.1 kDIyxohr22.5-101[facility] HospitalComment on above:Performed By: #### ESR, CBC, CRP ####[facility] [address] [place] [id number] USAMonocytes Auto (Bld) [#/Vol]Ordered By: Sandip Bunting on 12-10-7550Iuamqtbrs (Bld) [#/Vol]Automated blood monocyte count 0.0-0.8[facility] HospitalMonocytes [#/volume] in Blood by Automated countOrdered By: Sandip Bunting on 14-49-4428Prauyxexg (Bld) [#/Vol] 0.6 10*3/uLNormal0.0-0.8[facility] HospitalComment on above: Performed By: #### ESR, CBC, CRP ####[facility] [address] [place], [place] [address] USAMonocytes/100 WBC Auto (Bld)Ordered By: Sandip Bunting on 96-92-5953Tczcgzkvy/100 WBC (Bld)Automated monocyte %.[facility] HospitalMonocytes/100 leukocytes in Blood by Automated count Ordered By: Sandip Bunting on 49-86-1162Oebvhoois/100 WBC (Bld)7.7 %Normal. [facility] HospitalComment on above:Performed By: #### ESR, CBC, CRP ####[address] [address] [place] Neutrophils Auto (Bld) [#/Vol]Ordered By: Sandip Bunting on 06-25-2024 Neutrophils (Bld) [#/Vol]Neutrophils [#/volume] in Blood by Automated count 1.8-7.7FMartin Memorial HospitalNeutrophils [#/volume] in Blood by Automated countOrdered By: Sandip Bunsantiago on 67-77-4400Oudmgglhmmo (Bld) [#/Vol] 5.5 10*3/uLNormal1.8-7.7FMartin Memorial HospitalComment on above: Performed By: #### ESR, CBC, CRP ####[facility] [address] [place] [id number] USANeutrophils/100 WBC Auto (Bld)Ordered By: Sandip Aguirre on 25-36-1676Gvnmevuzsky/100 WBC (Bld)Automated neutrophil %.[facility] HospitalNeutrophils/100 leukocytes in Blood by Automated count Ordered By: Sandip Aguirre on 06-97-3464Wfkzlnedrim/100 WBC (Bld)69.4 %Normal. [facility] HospitalComment on above:Performed By: #### ESR, CBC, CRP ####[facility] [address] [place] [id number] [facility] Nucleated erythrocytes [Presence] in Blood by Automated countOrdered By: Sandip Aguirre on 86-48-7677Jdrwhelnl RBC Auto Ql (Bld)Nucleated erythrocytes [Presence] in Blood by Automated count0-0.5FMartin Memorial Hospital Nucleated RBC Auto Ql (Bld)0.1 /100{WBC}0-0.5FMartin Memorial Hospital Platelet mean volume Auto (Bld) [Entitic vol]Ordered By: Sandip Bunting on 68-22-6773Wngceutc mean volume (Bld) [Entitic vol]Platelet mean volume [Entitic volume] in Blood by Automated count6.6-10.1FMartin Memorial Hospital Platelet mean volume [Entitic volume] in Blood by Automated countOrdered By: Sandip Bunting on 82-26-5180Nproayes mean volume (Bld) [Entitic vol]7.5 fLNormal 6.6-10.1FMartin Memorial HospitalComment on above:Performed By: #### ESR, CBC, CRP ####[facility] [place] [address] USAPlatelets Auto (Bld) [#/Vol]Ordered By: Sandip Bunting on 06-25-2024 Platelets (Bld) [#/Vol]Platelets [#/volume] in Blood by Automated osopr091-190 [facility] HospitalPlatelets [#/volume] in Blood by Automated countOrdered By: Sandip Bunting on 82-30-0113Zvnvncajb (Bld) [#/Vol]234 10*3/uL Lixzvf875-361XacuiksgyOhiohealth O'Bleness HospitalComment on above:Performed By: #### ESR, CBC, CRP ####[address] [place] [id number] USARBC Auto (Bld) [#/Vol]Ordered By: Sandip Bunting on 18-75-8716ZQG (Bld) [#/Vol]Erythrocytes [#/volume] in Blood by Automated countLow3.90-5.60 [facility] HospitalWBC Auto (Bld) [#/Vol]Ordered By: Sandip Bunting on 56-17-9109GTR (Bld) [#/Vol]Leukocytes [#/volume] in Blood by Automated count4.1-10.5FMartin Memorial HospitalBahighlands arh regional medical center Metabolic Panelon 69-92-3821Zlvydmclb GFR25.145 mL/MinNoAsheville Specialty Hospital Physician GroupComment on above:Performed By: #### CBC, CRP, BMP, ESR ####[address] [place] [id number] USABasophils Auto (Bld) [#/Vol]Ordered By: Sandip Bunting on 71-20-9343Dyllqmfnp (Bld) [#/Vol]Automated basophil count 0.0-0.2FMartin Memorial HospitalBasophils [#/volume] in Blood by Automated countOrdered By: Sandip Bunting on 45-05-1702Wxsajzdpl (Bld) [#/Vol] 0.1 10*3/uLNormal0.0-0.2FMartin Memorial HospitalComment on above: Performed By: #### CBC, CRP, BMP, ESR ####[address] [address] USABasophils/100 WBC Auto (Bld)Ordered By: Sandip Aguirre on 47-46-4013Xqrkqfjtx/100 WBC (Bld)Automated basophil %.[facility] HospitalBasophils/100 leukocytes in Blood by Automated count Ordered By: Sandip Aguirre on 36-71-2165Qnlosgyuc/100 WBC (Bld)0.6 %Normal. [facility] HospitalComment on above:Performed By: #### CBC, CRP, BMP, ESR ####[address] [address] USAC reactive protein [Mass/volume] in Serum or PlasmaOrdered By: Sandip Aguirre on 52-09-8470RTF [Mass/Vol]C reactive protein [Mass/volume] in Serum or Plasma High0.0-0.5FMartin Memorial HospitalCRP [Mass/Vol]19.0 mg/dLHigh0.0-0.5 [facility] HospitalC-Reactive Proteinon 77-74-8051X-Reactive Rpgqlkw66.0 mg/dLHigh0.0-0.5The [facility] Physician GroupComment on above:Result Comment: PERFORMED BY:[address] [place], [place] [phone] MEDICAL DIRECTORJAJA CATES M.D. Performed By: #### CBC, CRP, BMP, ESR ####[address] [address] USACalcium [Mass/volume] in Serum or Plasma Ordered By: Tamar Cunha on 49-73-9981Vmbmxcs [Mass/Vol]Calcium [Mass/volume] in Serum or Plasma8.6-10.3FMartin Memorial HospitalCalcium [Mass/Vol] 8.6 mg/dLNormal8.6-10.3FMartin Memorial HospitalComment on above: Performed By: #### CBC, CRP, BMP, ESR ####[address] [address] USACarbon dioxide, total [Moles/volume] in Serum or PlasmaOrdered By: Tamar Cunha on 25-29-1357VE5 [Moles/Vol]Carbon dioxide, total [Moles/volume] in Serum or Remfix93.0-31.0[facility] HospitalCO2 [Moles/Vol]22.2 mmol/YJlfcxk43.0-31.0[facility] Comment on above:Performed By: #### CBC, CRP, BMP, ESR ####[address] [place] [address] USAChloride [Moles/volume] in Serum or PlasmaOrdered By: Tamar Cunha on 91-18-0118Xyprxwpe [Moles/Vol] Chloride [Moles/volume] in Serum or EkuzuaRen69-370RgowgasnlOhiohealth O'Bleness HospitalChloride [Moles/Vol]97 mmol/BFgp81-278NpwclswijOhiohealth O'Bleness Hospital Comment on above:Performed By: #### CBC, CRP, BMP, ESR ####[address] [address] USAComplete Blood Count Auto Diff on 75-84-3153Oriv Corpuscular HGB Conc32.8 g/xAGexsll87.5-35.6The [facility] Physician GroupComment on above:Performed By: #### CBC, CRP, BMP, ESR ####[address] [address] USANRBC% 0.0 /100{WBC}Normal0-0.5The [facility] HospitalComment on above:Performed By: #### CBC, CRP, BMP, ESR ####[place] [address] USACreatinine [Mass/volume] in Serum or PlasmaOrdered By: Tamar Cunha on 29-07-4766Byjbuuaujt [Mass/Vol]Creatinine [Mass/volume] in Serum or PlasmaHigh0.70-1.30[facility] HospitalCreatinine [Mass/Vol]2.49 mg/dLHigh0.70-1.30[facility] HospitalComment on above:Performed By: #### CBC, CRP, BMP, ESR ####[address] [place] [address] USAEosinophils Auto (Bld) [#/Vol]Ordered By: Sandip Bunting on 78-52-1950Sbhzsteerba (Bld) [#/Vol]Automated eosinophil count0.0-0.45[facility]leness HospitalEosinophils [#/volume] in Blood by Automated countOrdered By: Sandip Bunting on 37-99-9086Wzgadcehtsm (Bld) [#/Vol]0.2 10*3/uLNormal0.0-0.45[facility] HospitalComment on above:Performed By: #### CBC, CRP, BMP, ESR ####[address] [address] USAEosinophils/100 WBC Auto (Bld)Ordered By: Sandip Bunting on 06-02-5040Poggmjuplow/100 WBC (Bld)Automated eosinophil %. [facility]leness HospitalEosinophils/100 leukocytes in Blood by Automated countOrdered By: Sandip Bunting on 89-57-8270Niecldpqzeb/100 WBC (Bld) 1.9 %Normal.[facility]leness HospitalComment on above:Performed By: #### CBC, CRP, BMP, ESR ####[address] [address] USAErythrocyte Sedimentation Rateon 33-56-3410TRR (Bld) [Velocity]105 mm/hHigh0-19The [facility] Health Physician GroupComment on above:Result Comment: PERFORMED BY:[address] [place], [place] [phone] MEDICAL DIRECTORJAJA CATES M.D. Performed By: #### CBC, CRP, BMP, ESR ####[address] [address] USAErythrocyte distribution width Auto (RBC) [Ratio]Ordered By: Sandip Bunting on 81-81-1276Gjdlsknarna distribution width (RBC) [Ratio]Erythrocyte distribution width [Ratio] by Automated countHigh 12.0-14.8[facility]'Bleness HospitalErythrocyte distribution width [Ratio] by Automated countOrdered By: Sandip Aguirre on 38-76-4126Wibkicccaup distribution width (RBC) [Ratio]16.6 %High12.0-14.8[facility] HospitalComment on above:Performed By: #### CBC, CRP, BMP, ESR ####[facility] [address] [place] [address] USAErythrocyte sedimentation rate by Photometric methodOrdered By: Sandip Aguirre on 06-18-2024 ESR Photometric method (Bld) [Velocity]Erythrocyte sedimentation rate by Photometric methodWebster County Memorial Hospital019[facility]'Bleness HospitalESR Photometric method (Bld) [Velocity]105 mm/hrWebster County Memorial Hospital019[facility] Erythrocytes [#/volume] in Blood by Automated countOrdered By: Sandip Aguirre on 63-77-3584NNH (Bld) [#/Vol]3.31 10*6/uLLow3.90-5.60[facility] HospitalComment on above:Performed By: #### CBC, CRP, BMP, ESR ####[facility] [address] [place] [address] USAGlucose [Mass/volume] in Serum or PlasmaOrdered By: Tamar Cunha on 39-93-5043Voxsudj [Mass/Vol] Glucose [Mass/volume] in Serum or HrdorgEneh58-888OmdiymojzOhiohealth O'Bleness HospitalComment on above:ADA recommended reference rangeRandom Glucose Reference Range is dependent on time and content of last meal. Glucose of more than 200 mg/dL in a nonstressed, ambulatory subject supports the diagnosisof Diabetes Mellitus.Glucose [Mass/Vol]105 mg/nTZhwz98-958MltnimofvOhiohealth O'Bleness Hospital Comment on above:ADA recommended reference rangeRandom [...] rangePerformed By: #### CBC, CRP, BMP, ESR ####[facility] [address] [place] [id number] USAHematocrit Auto (Bld) [Volume fraction]Ordered By: Sandip Bunting on 41-03-7209Uqtptqnluj (Bld) [Volume fraction]Hematocrit [Volume Fraction] of Blood by Automated xjflyAro59.8-50.0 [facility]leness HospitalHematocrit [Volume Fraction] of Blood by Automated countOrdered By: Sandip Bunting on 17-82-9181Kejgcqapyk (Bld) [Volume fraction]29.4 %Low38.8-50.0[facility]len[facility] HospitalComment on above: Performed By: #### CBC, CRP, BMP, ESR ####[address] [id number] [place] [id number] USAHemoglobin [Mass/volume] in BloodOrdered By: Sandip Bunting on [id number] (Bld) [Mass/Vol]Hemoglobin [Mass/volume] in RcierZkj64.0-17.0[facility] HospitalHemoglobin (Bld) [Mass/Vol] 9.6 g/dLLow13.0-17.0[facility] HospitalComment on above:Performed By: #### CBC, CRP, BMP, ESR ####[place] [id number] USALeukocytes [#/volume] corrected for nucleated erythrocytes in Blood by Automated counOrdered By: Sandip Bunting on 06-18-2024 WBC corrected for nucl RBC Auto (Bld) [#/Vol]Leukocytes [#/volume] corrected for nucleated erythrocytes in Blood by Automated counHigh4.1-10.5FMartin Memorial HospitalWBC corrected for nucl RBC Auto (Bld) [#/Vol]10.9 10*3/uLHigh 4.1-10.5FMartin Memorial HospitalLeukocytes [#/volume] in Blood by Automated countOrdered By: Sandip Bunting on 48-19-2595ARD (Bld) [#/Vol]10.9 10*3/uLHigh4.1-10.5FMartin Memorial HospitalComment on above:Performed By: #### CBC, CRP, BMP, ESR ####[facility] [place] [address] USALymphocytes Auto (Bld) [#/Vol]Ordered By: Sandip Bunting on 72-60-1891Awicsqpjvuf (Bld) [#/Vol]Lymphocytes [#/volume] in Blood by Automated count1.00-4.8[facility] HospitalLymphocytes [#/volume] in Blood by Automated countOrdered By: Sandip Bunting on 20-15-1468Hzcexeqdbwa (Bld) [#/Vol]1.2 10*3/uLNormal1.00-4.8[facility] HospitalComment on above:Performed By: #### CBC, CRP, BMP, ESR ####[place] [id number] USALymphocytes/100 WBC Auto (Bld)Ordered By: Sandip Bunting on 22-22-0975Gumruzrjzxe/100 WBC (Bld)Lymphocytes/100 leukocytes in Blood by Automated count.[facility] Lymphocytes/100 leukocytes in Blood by Automated countOrdered By: Sandip Bunting on 65-50-4338Ofdxampvxiu/100 WBC (Bld)10.9 %Normal.[facility]leness HospitalComment on above:Performed By: #### CBC, CRP, BMP, ESR ####[place] [id number] [facility] Auto (RBC) [Entitic mass]Ordered By: Sandip Bunting on 70-77-4281LYB (RBC) [Entitic mass] MCH [Entitic mass] by Automated count27.5-35.2FMartin Memorial Hospital MCH [Entitic mass] by Automated countOrdered By: Sandip Bunting on 53-46-7875QQI (RBC) [Entitic mass]29.1 myUtylki77.5-35.2FMartin Memorial Hospital Comment on above:Performed By: #### CBC, CRP, BMP, ESR ####[place] [address] [facility] Auto (RBC) [Mass/Vol] Ordered By: Sandip Bunting on 42-47-4079TQOO (RBC) [Mass/Vol]MCHC [Mass/volume] by Automated count32.5-35.6FMorrow County HospitalHC (RBC) [Mass/Vol]32.8 g/dL32.5-35.6FMartin Memorial HospitalMCV Auto (RBC) [Entitic vol]Ordered By: Sandip Bunting on 77-78-9807BWF (RBC) [Entitic vol]MCV [Entitic volume] by Automated count83.5-101[facility] MemorialV [Entitic volume] by Automated countOrdered By: Sandip Bunting on 93-26-9348IVH (RBC) [Entitic vol]88.[address] [place], [place] [address]Comment on above:Performed By: #### CBC, CRP, BMP, ESR ####[facility] [address] [place] [address] USAMonocytes Auto (Bld) [#/Vol]Ordered By: Sandip Bunting on 62-66-6648Pbycfxgrx (Bld) [#/Vol]Automated blood monocyte count0.0-0.8[facility] HospitalMonocytes [#/volume] in Blood by Automated countOrdered By: Sandip Bunting on 26-83-3941Xommwfpiz (Bld) [#/Vol] 0.8 10*3/uLNormal0.0-0.8[facility]len[facility] HospitalComment on above: Performed By: #### CBC, CRP, BMP, ESR ####[place] [id number] USAMonocytes/100 WBC Auto (Bld)Ordered By: Sandip Bunting on 94-06-2408Vfglstkol/100 WBC (Bld)Automated monocyte %.[facility] HospitalMonocytes/100 leukocytes in Blood by Automated count Ordered By: Sadnip Bunting on 14-51-0826Xojqkwvwk/100 WBC (Bld)7.0 %Normal. [facility] HospitalComment on above:Performed By: #### CBC, CRP, BMP, ESR ####[place] [id number] USANeutrophils Auto (Bld) [#/Vol]Ordered By: Sandip Bunting on 06-18-2024 Neutrophils (Bld) [#/Vol]Neutrophils [#/volume] in Blood by Automated countHigh 1.8-7.7FMartin Memorial HospitalNeutrophils [#/volume] in Blood by Automated countOrdered By: Sandip Bunting on 85-78-3975Yedtvhocvbk (Bld) [#/Vol] 8.7 10*3/uLHigh1.8-7.7FMartin Memorial HospitalComment on above: Performed By: #### CBC, CRP, BMP, ESR ####[facility] [address] [place] [address] USANeutrophils/100 WBC Auto (Bld)Ordered By: Sandip Bunting on 52-23-4267Kiruccyvhyu/100 WBC (Bld)Automated neutrophil %. [facility] HospitalNeutrophils/100 leukocytes in Blood by Automated countOrdered By: Sandip Bunting on 01-82-7682Clkazbrwrph/100 WBC (Bld) 79.6 %Normal.[facility]len[facility] HospitalComment on above:Performed By: #### CBC, CRP, BMP, ESR ####[facility] [address] [place] [address] USANo Panel InformationOrdered By: Tamar Cunha on 82-08-4941Kwqbfpjmi GFR (CKD-EPI)25.145 mL/[facility] Creatinine Clearance (ChemN/[facility]25.145 mL/[facility] Nucleated erythrocytes [Presence] in Blood by Automated countOrdered By: Sandip Bunting on 25-72-0929Oawpmfuwm RBC Auto Ql (Bld)Nucleated erythrocytes [Presence] in Blood by Automated count0-0.5FMartin Memorial Hospital Nucleated RBC Auto Ql (Bld)0.0 /100{WBC}0-0.5FMartin Memorial Hospital Platelet mean volume Auto (Bld) [Entitic vol]Ordered By: Sandip Bunting on 40-58-5121Lsoiqtse mean volume (Bld) [Entitic vol]Platelet mean volume [Entitic volume] in Blood by Automated count6.6-10.1FMartin Memorial Hospital Platelet mean volume [Entitic volume] in Blood by Automated countOrdered By: Sandip Bunting on 92-26-5090Oqctblpx mean volume (Bld) [Entitic vol]7.8 fLNormal 6.6-10.1FMartin Memorial HospitalComment on above:Performed By: #### CBC, CRP, BMP, ESR ####[facility] [address] [place] [address] USAPlatelets Auto (Bld) [#/Vol]Ordered By: Sandip Bunting on 06-18-2024 Platelets (Bld) [#/Vol]Platelets [#/volume] in Blood by Automated ieolk695-442 [facility] HospitalPlatelets [#/volume] in Blood by Automated countOrdered By: Sandip Bunting on 59-01-4964Rsfzsuvee (Bld) [#/Vol]292 10*3/uL Fandzf144-604MdosimewzOhiohealth O'Bleness HospitalComment on above:Performed By: #### CBC, CRP, BMP, ESR ####[facility] [address] [place] [address] USAPotassium [Moles/volume] in Serum or PlasmaOrdered By: Tamar Cunha on 88-62-4643Umosaouct [Moles/Vol]Potassium [Moles/volume] in Serum or Plasma3.5-5.1FMartin Memorial HospitalPotassium [Moles/Vol] 4.7 mmol/LNormal3.5-5.1FMartin Memorial HospitalComment on above: Performed By: #### CBC, CRP, BMP, ESR ####[facility] [address] [place] [address] USARBC Auto (Bld) [#/Vol]Ordered By: Sandip Bunsantiago on 14-96-8597ZFC (Bld) [#/Vol]Erythrocytes [#/volume] in Blood by Automated countLow3.90-5.60Highland District Hospitalerum or plasma anion gap determinationOrdered By: Tamar Cunha on 70-88-1793Bndch gap [Moles/Vol]Serum or plasma anion gap determinationHigh6.0-15.0[facility] HospitalAnion gap [Moles/Vol]16.5 mmol/LHigh6.0-15.0[facility] HospitalComment on above:Performed By: #### CBC, CRP, BMP, ESR ####[facility] [place] [address] USASodium [Moles/volume] in Serum or PlasmaOrdered By: Tamar Cunha on 34-77-8040Sbzcvg [Moles/Vol]Sodium [Moles/volume] in Serum or QojztfAas722-493XslqceqcfHighland District Hospitalodium [Moles/Vol]131 mmol/GVfw155-654WsztqfagkOhiohealth O'Bleness HospitalComment on above:Performed By: #### CBC, CRP, BMP, ESR ####[facility] [address] [place] [address] USAUrea nitrogen [Mass/volume] in Serum or PlasmaOrdered By: Tamar Cunha on 03-72-8772Tdtl nitrogen [Mass/Vol]Urea nitrogen [Mass/volume] in Serum or PlasmaHigh7-25 [facility] HospitalUrea nitrogen [Mass/Vol]42 mg/dLHigh7-25 [facility] HospitalComment on above:Performed By: #### CBC, CRP, BMP, ESR ####[facility] [address] [place] [address] USAWBC Auto (Bld) [#/Vol]Ordered By: Sandip Bunting on 40-41-6036BCK (Bld) [#/Vol]Leukocytes [#/volume] in Blood by Automated countHigh4.1-10.5FMartin Memorial HospitalBasophils Auto (Bld) [#/Vol]Ordered By: Sandip Bunting on 87-02-7732Elkswdlby (Bld) [#/Vol]Automated basophil count0.0-0.2FMartin Memorial HospitalBasophils/100 WBC Auto (Bld)Ordered By: Sandip Bunting on 75-61-0672Kdzuaodyz/100 WBC (Bld)Automated basophil %.[facility] HospitalComplete Blood Count Auto Diffon 72-01-5762Yocrccnhm (Bld) [#/Vol] 0.0 10*3/uLNormal0.0-0.2The Former[facility] Health Physician GroupComment on above:Result Comment: PERFORMED BY:[address] [place], [place] [phone] MEDICAL DIRECTORJAJA CATES M.D. Performed By: #### CBC ####[place] [address] USABasophils/100 WBC (Bld)0.5 %Normal.The [facility] Physician GroupComment on above:Performed By: #### CBC ####[place] [address] USAEosinophils (Bld) [#/Vol]0.2 10*3/uLNormal0.0-0.45The [facility]ly [facility] Physician GroupComment on above:Performed By: #### CBC ####[place] [address] USAEosinophils/100 WBC (Bld)2.2 %Normal.The [facility] Physician GroupComment on above:Performed By: #### CBC ####[place] [address] USAErythrocyte distribution width (RBC) [Ratio]16.6 % High12.0-14.8The Formerly [facility] Physician GroupComment on above:Performed By: #### CBC ####[place] [address] [place] Hematocrit (Bld) [Volume fraction]29.1 %Low38.8-50.0The Formerly [facility] Physician GroupComment on above:Performed By: #### CBC ####[place] [address] USAHemoglobin (Bld) [Mass/Vol]9.7 g/dLLow 13.0-17.0The [facility] Physician GroupComment on above:Performed By: #### CBC ####[place] [address] [place] Lymphocytes (Bld) [#/Vol]0.8 10*3/uLLow1.00-4.8[facility] Comment on above:Performed By: #### CBC ####[place] [address] USALymphocytes/100 WBC (Bld)9.5 %Normal.The [facility] Physician GroupComment on above:Performed By: #### CBC ####[address]H (RBC) [Entitic mass]29.8 bxKplhav63.5-35.2The Formerly [facility] Physician GroupComment on above: Performed By: #### CBC ####[address]V (RBC) [Entitic vol]89.7 zJRodcqz04.5-101The Formerly [facility] Physician GroupComment on above:Performed By: #### CBC ####[place] [address] USAMean Corpuscular HGB Conc33.2 g/sLHkgtaf29.5-35.6The Formerly [facility] Physician GroupComment on above: Performed By: #### CBC ####[place] [address] USAMonocytes (Bld) [#/Vol]0.6 10*3/uLNormal0.0-0.8The [facility] Physician GroupComment on above:Performed By: #### CBC ####[place] [address] USAMonocytes/100 WBC (Bld)7.4 %Normal.The [facility] Physician GroupComment on above:Performed By: #### CBC ####[place] [address] USANeutrophils (Bld) [#/Vol]7.0 10*3/uLNormal1.8-7.7The Formerly [facility] Physician GroupComment on above:Performed By: #### CBC ####[place] [address] USANeutrophils/100 WBC (Bld)80.4 %Normal. The [facility] Physician GroupComment on above:Performed By: #### CBC ####[place] [address] USANRBC% 0.0 /100{WBC}Normal0-0.5The Former[facility] Physician GroupComment on above:Performed By: #### CBC ####[place] [address] USAPlatelet mean volume (Bld) [Entitic vol]8.1 fLNormal6.6-10.1The [facility] Physician GroupComment on above:Performed By: #### CBC ####[place] [address] USAPlatelets (Bld) [#/Vol]202 10*3/zGBwvcer028-819Ikc Former[facility] Physician GroupComment on above: Performed By: #### CBC ####[place] [address] USARBC (Bld) [#/Vol]3.24 10*6/uLLow3.90-5.60The [facility] Physician GroupComment on above:Performed By: #### CBC ####[place] [address] USAWBC (Bld) [#/Vol]8.7 10*3/uLNormal4.1-10.5The [facility] Physician GroupComment on above:Performed By: #### CBC ####[place] [address] USAEosinophils Auto (Bld) [#/Vol]Ordered By: Sandip Bunting on 06-13-2024 Eosinophils (Bld) [#/Vol]Automated eosinophil count0.0-0.45[facility] HospitalEosinophils/100 WBC Auto (Bld)Ordered By: Sandip Bunting on 54-85-9849Qvnnmqagqbd/100 WBC (Bld)Automated eosinophil %.[facility]len[facility] HospitalErythrocyte distribution width Auto (RBC) [Ratio]Ordered By: Sandip Bunting on 96-50-0716Maczaozxcec distribution width (RBC) [Ratio] Erythrocyte distribution width [Ratio] by Automated vnvuuApow70.0-14.8[facility] HospitalHematocrit Auto (Bld) [Volume fraction]Ordered By: Sandip Bunting on 81-73-4181Rmvaluquem (Bld) [Volume fraction]Hematocrit [Volume Fraction] of Blood by Automated aoodmVwv27.8-50.0[facility] HospitalHemoglobin [Mass/volume] in BloodOrdered By: Sandip Bunting on 06-13-2024 Hemoglobin (Bld) [Mass/Vol]Hemoglobin [Mass/volume] in BdqqsDye65.0-17.0 [facility] HospitalLeukocytes [#/volume] corrected for nucleated erythrocytes in Blood by Automated counOrdered By: Sandip Bunting on 06-13-2024 WBC corrected for nucl RBC Auto (Bld) [#/Vol]Leukocytes [#/volume] corrected for nucleated erythrocytes in Blood by Automated coun4.1-10.5FMartin Memorial HospitalLymphocytes Auto (Bld) [#/Vol]Ordered By: Sandip Bunting on 51-99-1096Ycswzmdidne (Bld) [#/Vol]Lymphocytes [#/volume] in Blood by Automated countLow1.00-4.8[facility] HospitalLymphocytes/100 WBC Auto (Bld) Ordered By: Sandip Bunting on 67-39-4217Snfkepvyzrc/100 WBC (Bld)Lymphocytes/100 leukocytes in Blood by Automated count.[facility]Blen[facility] HospitalMCH Auto (RBC) [Entitic mass]Ordered By: Sandip Bunting on 21-39-5881NTS (RBC) [Entitic mass]MCH [Entitic mass] by Automated count27.5-35.2FMartin Memorial HospitalMCHC Auto (RBC) [Mass/Vol]Ordered By: Sandip Bunting on 06-13-2024 MCHC (RBC) [Mass/Vol]MCHC [Mass/volume] by Automated count32.5-35.6FMartin Memorial HospitalMCV Auto (RBC) [Entitic vol]Ordered By: Sandip Bunting on 11-25-4140PDB (RBC) [Entitic vol]MCV [Entitic volume] by Automated count83.5-101 [facility] HospitalMonocytes Auto (Bld) [#/Vol]Ordered By: Sandip Bunting on 32-88-8943Yxfqgjcyc (Bld) [#/Vol]Automated blood monocyte count 0.0-0.8[facility] HospitalMonocytes/100 WBC Auto (Bld)Ordered By: Sandip Bunting on 47-02-6517Yrqdsjfkg/100 WBC (Bld)Automated monocyte %. [facility] HospitalNeutrophils Auto (Bld) [#/Vol]Ordered By: Sandip Bunting on 73-94-5712Uogevsbwplo (Bld) [#/Vol]Neutrophils [#/volume] in Blood by Automated count1.8-7.7FMartin Memorial HospitalNeutrophils/100 WBC Auto (Bld)Ordered By: Sandip Bunting on 20-70-9239Knpqhljclld/100 WBC (Bld) Automated neutrophil %.[facility] HospitalNucleated erythrocytes [Presence] in Blood by Automated countOrdered By: Sandip Bunting on 06-13-2024 Nucleated RBC Auto Ql (Bld)Nucleated erythrocytes [Presence] in Blood by Automated count0-0.5FMartin Memorial HospitalPlatelet mean volume Auto (Bld) [Entitic vol]Ordered By: Sandip Bunting on 90-89-2890Aepiallw mean volume (Bld) [Entitic vol]Platelet mean volume [Entitic volume] in Blood by Automated count6.6-10.1FMartin Memorial HospitalPlatelets Auto (Bld) [#/Vol] Ordered By: Sandip Bunting on 62-32-2529Senkaxnci (Bld) [#/Vol]Platelets [#/volume] in Blood by Automated -997ZbuzfxcubOhiohealth O'Bleness Hospital RBC Auto (Bld) [#/Vol]Ordered By: Sandip Bunting on 22-78-0190XIJ (Bld) [#/Vol] Erythrocytes [#/volume] in Blood by Automated countLow3.90-5.60[facility] HospitalWBC Auto (Bld) [#/Vol]Ordered By: Sandip Bunting on 29-44-7282KTW (Bld) [#/Vol]Leukocytes [#/volume] in Blood by Automated count 4.1-10.5FMartin Memorial HospitalAppearance of UrineOrdered By: Sandip Bunting on 92-59-1527Bichrhvjyr (U)Urine appearanceAbnormalClearOhiohealth O'Bleness HospitalBacteria [Presence] in Urine by AutomatedOrdered By: Sandip Bunting on 31-43-2474Szlvmbnt Auto Ql (U)Bacteria [Presence] in Urine by AutomatedNone [facility] HospitalBilirubin Test strip Ql (U) Ordered By: Sandip Bunting on 94-18-3755Ifvwyyrwu Ql (U)Bilirubin.total [Presence] in Urine by Test stripNegativeOhiohealth O'Bleness HospitalColor Auto (U)Ordered By: Sandip Bunting on 91-24-5456Lmrom (U)Color of Urine by Auto YellowOhiohealth O'Bleness HospitalDipstick and Microscopicon 06-12-2024 Appearance (U)TurbidCritically abnormalClearThe Formerly [facility] Health Physician GroupComment on above:Order Comment: Name Collection Type:: Collection Method Unknown Performed By: #### CUU, ADDONUAPLUS ####[facility] [place] [facility] [place], [place] USABacteria,UrineRareNormalNone SeenMayo Clinic Florida Physician GroupComment on above:Order Comment: Name Collection Type:: Collection Method UnknownPerformed By: #### CUU, ADDONUAPLUS ####[facility] [place] [facility] [place], [place] USABilirubin,UrineNegativeNormal NegativeThe Formerly [facility] Physician GroupComment on above:Order Comment: Name Collection Type:: Collection Method UnknownPerformed By: #### CUU, ADDONUAPLUS ####[facility] [place] [place] [place], [place] USAColor (U)YellowNormalYellowThe Formerly [facility] Physician GroupComment on above:Order Comment: Name Collection Type:: Collection Method UnknownPerformed By: #### CUU, ADDONUAPLUS ####[facility] [place] [facility] [address] USAGlucose Ql (U)NormalNormalNormalThe Formerly [facility] Physician GroupComment on above:Order Comment: Name Collection Type:: Collection Method UnknownPerformed By: #### CUU, ADDONUAPLUS ####[address] [id number] USAHyaline Casts,UrineNoneNormal0-8The Formerly [facility] Physician GroupComment on above:Order Comment: Name Collection Type:: Collection Method UnknownResult Comment: PERFORMED BY:[place] [address] [place], [place] [phone] MEDICAL DIRECTORJAJA CATES M.D.Performed By: #### CUU, ADDONUAPLUS ####[address] USAKetones Ql (U)NegativeNormalNegativeMayo Clinic Florida Physician GroupComment on above:Order Comment: Name Collection Type:: Collection Method UnknownPerformed By: #### MANDO, ADDONUAPLUS ####[address] [address] USALeukocyte esterase Test strip Ql (U)4+HighNegativeMayo Clinic Florida Physician GroupComment on above:Order Comment: Name Collection Type:: Collection Method UnknownPerformed By: #### MANDO, ADDONUAPLUS ####[address] [id number] USANitrite,UrinePositiveHigh NegativeThe Formerly [facility] Health Physician GroupComment on above:Order Comment: Name Collection Type:: Collection Method UnknownPerformed By: #### CUU, ADDONUAPLUS ####[address] [place] USAOccult Blood,Urine2+HighNegativeMayo Clinic Florida Physician GroupComment on above:Order Comment: Name Collection Type:: Collection Method UnknownResult Comment: PERFORMED BY:[place] [address] [address] [place]OLDSTEINDaneAMEENA[place], [place] [phone] MEDICAL DIRECTORJAJA CATES M.D. Performed By: #### MANDO ADDONUAPLUS ####[address], [id number] USApH (U)8.0 [pH]Normal5.0-9.0The Formerly [facility] Physician GroupComment on above:Order Comment: Name Collection Type:: Collection Method UnknownPerformed By: #### CUU, ADDONUAPLUS ####[address] [facility] [place], [place] USAProtein (U) [Mass/Vol]70 mg/dLHigh NegativeThe Formerly [facility] Health Physician GroupComment on above:Order Comment: Name Collection Type:: Collection Method UnknownPerformed By: #### CUU, ADDONUAPLUS ####[address], [place] [place] RBC,Nmuhh85-41Bseu8-5Vis Formerly [facility] Physician GroupComment on above:Order Comment: Name Collection Type:: Collection Method UnknownPerformed By: #### CUU, ADDONUAPLUS ####[address] [address] USASpecificy Weatherby,Urine1.976Eqxjdx5.001-1.030The Formerly [facility] Physician GroupComment on above:Order Comment: Name Collection Type:: Collection Method UnknownPerformed By: #### CUU, ADDONUAPLUS ####[address] [facility] [place], [place] USAUrobilinogen,UrineNormalNormalNormalThe Formerly [facility] Physician GroupComment on above:Order Comment: Name Collection Type:: Collection Method UnknownPerformed By: #### CUU, ADDONUAPLUS ####[address] [facility] [place], [place] USAWBC CLUMP, UrineMany HighNone SeenMayo Clinic Florida Physician GroupComment on above:Order Comment: Name Collection Type:: Collection Method UnknownPerformed By: #### CUU, ADDONUAPLUS ####[address] [facility] [place], [place] [place] WBC,UrineInnumerableHigh0-4The Former[facility] Physician GroupComment on above:Order Comment: Name Collection Type:: Collection Method UnknownPerformed By: #### CUU, ADDONUAPLUS ####[facility] [address] [place] [address] USAEpithelial cells.squamous [#/area] in Urine sediment by Automated count Ordered By: Sandip Bunting on 95-89-8457Lmguoadhlt cells.squamous Auto (Urine sed) [#/Area]Epithelial cells.squamous [#/area] in Urine sediment by Automated countOhiohealth O'Bleness HospitalErythrocytes [#/area] in Urine sediment by Automated countOrdered By: Sandip Bunting on 23-77-3881RQX Auto (Urine sed) [#/Area]Erythrocytes [#/area] in Urine sediment by Automated countHigh0-4 [facility] HospitalGlucose [Mass/volume] in Urine by Test strip Ordered By: Sandip Bunting on 68-46-5257Gjiotpr Test strip (U) [Mass/Vol]Glucose [Mass/volume] in Urine by Test stripTrinity Health System Hemoglobin Test strip Ql (U)Ordered By: Sandip Bunting on 10-68-1286Xuasctjqsb Ql (U)Hemoglobin [Presence] in Urine by Test stripCleveland Clinic Euclid HospitalHyaline casts [#/area] in Urine sediment by Automated count Ordered By: Sandip Bunting on 10-74-5313Tgidsny casts Auto (Urine sed) [#/Area] Hyaline casts [#/area] in Urine sediment by Automated count0-8[facility]len[facility] HospitalKetones Test strip Ql (U)Ordered By: Sandip Bunting on 06-12-2024 Ketones Ql (U)Ketones [Presence] in Urine by Test stripNegMcCullough-Hyde Memorial HospitalLeukocyte clumps [Presence] in Urine by AutomatedOrdered By: Sandip Bunting on 96-22-4990Jkxxjladn clumps Auto Ql (U)Leukocyte clumps [Presence] in Urine by AutomatedPocahontas Memorial Hospitale [facility] Leukocyte esterase [Presence] in Urine by Test stripOrdered By: Sandip Bunting on 60-37-1328Sbenfzfuj esterase Test strip Ql (U)Leukocyte esterase [Presence] in Urine by Test stripCleveland Clinic Euclid HospitalLeukocytes [#/area] in Urine sediment by Automated countOrdered By: Sandip Bunting on 36-12-6239WQH Auto (Urine sed) [#/Area]Leukocytes [#/area] in Urine sediment by Automated countHigh0-4FMartin Memorial HospitalNitrite Test strip Ql (U) Ordered By: Sandip Bunting on 30-36-0481Idyfrlx Ql (U)Nitrite [Presence] in Urine by Test stripHighNegMcCullough-Hyde Memorial HospitalProtein Test strip (U) [Mass/Vol]Ordered By: Sandip Bunting on 65-87-8603Qjwrjza (U) [Mass/Vol]Protein [Mass/volume] in Urine by Test stripHighNegCoshocton Regional Medical Centerpecific gravity Test strip (U) [Rel density]Ordered By: Sandip Bunting on 21-24-2461Gvohjdya gravity (U) [Rel density]Specific gravity of Urine by Test strip1.001-1.030[facility]'Bleness HospitalUrine Culture on 16-67-8903Vmfneyvb identified Cx Nom (U)NormalThe Formerly [facility] Comment on above:Performed By: #### CUU, ADDEMERITAUAPLUS ####[facility] StreetUrine cultureOrdered By: Sandip Bunting on 33-83-4627Zhzhejvt identified Cx Nom (U)AbnormalOhiohealth O'Bleness HospitalBacteria identified Cx Nom (U)AbnormalOhiohealth O'Bleness HospitalUrine cultureAbnoSt. John of God HospitalUrine culture AbnormalOhiohealth O'Bleness HospitalUrobilinogen Test strip (U) [Mass/Vol] Ordered By: Sandip Bunting on 15-08-1921Yjfqnosvvsrv (U) [Mass/Vol]Urobilinogen [Mass/volume] in Urine by Test stripNoSt. John of God HospitalpH Test strip (U)Ordered By: Sandip Bunting on 66-80-4768vL (U)pH of Urine by Test strip5.0-9.0[facility] HospitalBasophils Auto (Bld) [#/Vol]Ordered By: Sandip Bunting on 55-10-1019Tskaqdhkn (Bld) [#/Vol]Automated basophil count 0.0-0.2FMartin Memorial HospitalBasophils/100 WBC Auto (Bld)Ordered By: Sandip Bunting on 82-17-8874Tcgjscdio/100 WBC (Bld)Automated basophil %. [facility] HospitalC reactive protein [Mass/volume] in Serum or PlasmaOrdered By: Sandip Bunting on 62-40-3283XAQ [Mass/Vol]C reactive protein [Mass/volume] in Serum or PlasmaHigh0.0-0.5FMartin Memorial HospitalC- Reactive Proteinon 64-14-2642I-Reactive Odgyuix85.3 mg/dLHigh0.0-0.5The [facility] Physician GroupComment on above:Result Comment: PERFORMED BY:[address] [place], [place] [phone] MEDICAL DIRECTORJAJA CATES M.D.Performed By: #### CRP, CBC, ESR ####[address] [address] [facility] Complete Blood Count Auto Diffon 31-63-6492Apjaoyjgd (Bld) [#/Vol]0.0 10*3/uL Normal0.0-0.2The [facility]ician [facility] HospitalComment on above:Performed By: #### CRP, CBC, ESR ####[address] [address] USABasophils/100 WBC (Bld)0.3 %Normal.The [facility] Physician GroupComment on above:Performed By: #### CRP, CBC, ESR ####[address] [address] USAEosinophils (Bld) [#/Vol]0.1 10*3/uL Normal0.0-0.45The [facility] HospitalComment on above:Performed By: #### CRP, CBC, ESR ####[address] [address] USAEosinophils/100 WBC (Bld)0.6 %Normal.[facility] Comment on above:Performed By: #### CRP, CBC, ESR ####[address] [address] USAErythrocyte distribution width (RBC) [Ratio]16.3 %High12.0-14.8The Formerly [facility] Physician GroupComment on above: Performed By: #### CRP, CBC, ESR ####[place] [address] USAHematocrit (Bld) [Volume fraction]26.9 %Low38.8-50.0 The Formerly [facility] Physician GroupComment on above:Performed By: #### CRP, CBC, ESR ####[place] [address] [facility] Hemoglobin (Bld) [Mass/Vol]8.8 g/dLLow13.0-17.0The [facility] Comment on above:Performed By: #### CRP, CBC, ESR ####[place] [address] USALymphocytes (Bld) [#/Vol]1.7 10*3/uL Normal1.00-4.8The Formerly [facility] Physician GroupComment on above:Performed By: #### CRP, CBC, ESR ####[place] [address] USALymphocytes/100 WBC (Bld)13.8 %Normal.[facility] Comment on above:Performed By: #### CRP, CBC, ESR ####[address] [address] USAMCH (RBC) [Entitic mass]29.1 pgNormal 27.5-35.2The Formerly [facility] Physician GroupComment on above:Performed By: #### CRP, CBC, ESR ####[address] [address] USAMCV (RBC) [Entitic vol]88.8 mMRvspgq14.5-101The [facility] Comment on above:Performed By: #### CRP, CBC, ESR ####[place] [address] USAMean Corpuscular HGB Conc32.8 g/dL Mzlqpv58.5-35.6The Formerly [facility] Physician GroupComment on above:Performed By: #### CRP, CBC, ESR ####[place] [address] [place] [address] USAMonocytes (Bld) [#/Vol]1.1 10*3/uLHigh0.0-0.8The Formerly [facility] Physician GroupComment on above:Performed By: #### CRP, CBC, ESR ####[address] [address] USAMonocytes/100 WBC (Bld)9.1 % Normal.The Former[facility] Physician GroupComment on above:Performed By: #### CRP, CBC, ESR ####[address] [address] USANeutrophils (Bld) [#/Vol]9.1 10*3/uLHigh1.8-7.7The [facility] Comment on above:Performed By: #### CRP, CBC, ESR ####[address] [address] USANeutrophils/100 WBC (Bld)76.2 %Normal .The Formerly [facility] Physician GroupComment on above:Performed By: #### CRP, CBC, ESR ####[address] [address] USANRBC% 0.0 /100{WBC}Normal0-0.5The Formerly [facility] Physician GroupComment on above:Performed By: #### CRP, CBC, ESR ####[address] [address] USAPlatelet mean volume (Bld) [Entitic vol]8.0 fLNormal 6.6-10.1The Formerly [facility] Physician GroupComment on above:Performed By: #### CRP, CBC, ESR ####[address] [address] USAPlatelets (Bld) [#/Vol]214 10*3/jUOkiqry662-748Szr [facility] Comment on above:Performed By: #### CRP, CBC, ESR ####[address] [address] USARBC (Bld) [#/Vol]3.03 10*6/uLLow 3.90-5.60The Formerly [facility] Physician GroupComment on above:Performed By: #### CRP, CBC, ESR ####[place] [address] [place] [address] USAWBC (Bld) [#/Vol]12.0 10*3/uLHigh4.1-10.5The Formerly [facility] Physician GroupComment on above:Performed By: #### CRP, CBC, ESR ####[address] [address] USAEosinophils Auto (Bld) [#/Vol]Ordered By: Sandip Bunting on 07-28-4501Jtpyuiiowde (Bld) [#/Vol]Automated eosinophil count0.0-0.45[facility] HospitalEosinophils/100 WBC Auto (Bld) Ordered By: Sandip Bunting on 08-74-5890Vsulpuehqui/100 WBC (Bld)Automated eosinophil %.[facility]len[facility] HospitalErythrocyte Sedimentation Rateon 37-10-5806TZV (Bld) [Velocity]97 mm/hHigh0-19The [facility] Comment on above:Result Comment: PERFORMED BY:[address] [place], [place] [phone] MEDICAL DIRECTORJAJA CATES M.D.Performed By: #### CRP, CBC, ESR ####[address] [address] [facility] Erythrocyte distribution width Auto (RBC) [Ratio]Ordered By: Sandip Bunting on 42-77-7621Vatquuqngdo distribution width (RBC) [Ratio]Erythrocyte distribution width [Ratio] by Automated vsncwHyev50.0-14.8[facility] Erythrocyte sedimentation rate by Photometric methodOrdered By: Sandip Bunting on 91-77-6281OGZ Photometric method (Bld) [Velocity]Erythrocyte sedimentation rate by Photometric methodHigh0-19[facility] HospitalHematocrit Auto (Bld) [Volume fraction]Ordered By: Sandip Bunting on 03-11-9971Gkgvgtmonp (Bld) [Volume fraction]Hematocrit [Volume Fraction] of Blood by Automated count Low38.8-50.0[facility] HospitalHemoglobin [Mass/volume] in Blood Ordered By: Sandip Bunting on 11-45-9564Onblsqqmxr (Bld) [Mass/Vol]Hemoglobin [Mass/volume] in FawloQcy21.0-17.0[facility] HospitalLeukocytes [#/volume] corrected for nucleated erythrocytes in Blood by Automated coun Ordered By: Sandip Bunting on 53-00-1475LRE corrected for nucl RBC Auto (Bld) [#/Vol]Leukocytes [#/volume] corrected for nucleated erythrocytes in Blood by Automated counHigh4.1-10.5FMartin Memorial HospitalLymphocytes Auto (Bld) [#/Vol]Ordered By: Sandip Bunting on 70-39-2599Aezlpkpffte (Bld) [#/Vol] Lymphocytes [#/volume] in Blood by Automated count1.00-4.8[facility]len[facility] HospitalLymphocytes/100 WBC Auto (Bld)Ordered By: Sandip Bunting on 69-15-5594Vfmcpdsargj/100 WBC (Bld)Lymphocytes/100 leukocytes in Blood by Automated count.[facility]leness HospitalMCH Auto (RBC) [Entitic mass] Ordered By: Sandip Bunting on 97-87-4138VMW (RBC) [Entitic mass]MCH [Entitic mass] by Automated count27.5-35.2FMartin Memorial HospitalMCHC Auto (RBC) [Mass/Vol]Ordered By: Sandip Bunting on 08-33-8256EXEL (RBC) [Mass/Vol] MCHC [Mass/volume] by Automated count32.5-35.6FMartin Memorial Hospital MCV Auto (RBC) [Entitic vol]Ordered By: Sandip Bunting on 70-61-3996XIK (RBC) [Entitic vol]MCV [Entitic volume] by Automated count83.5-101Ohio[facility] HospitalMonocytes Auto (Bld) [#/Vol]Ordered By: Sandip Bunting on 21-73-0839Jmqgymofm (Bld) [#/Vol]Automated blood monocyte countHigh0.0-0.8 [facility] HospitalMonocytes/100 WBC Auto (Bld)Ordered By: Sandip Aguirre on 80-67-8473Lnfnfdkaa/100 WBC (Bld)Automated monocyte %.[facility]len[facility] HospitalNeutrophils Auto (Bld) [#/Vol]Ordered By: Sandip Bunting on 47-30-4113Otempxzxyrr (Bld) [#/Vol]Neutrophils [#/volume] in Blood by Automated countHigh1.8-7.7FMartin Memorial HospitalNeutrophils/100 WBC Auto (Bld)Ordered By: Sandip Aguirre on 70-47-2777Cmvutrsvsqj/100 WBC (Bld) Automated neutrophil %.[facility]'Blen[facility] HospitalNucleated erythrocytes [Presence] in Blood by Automated countOrdered By: Sandip Aguirre on 06-11-2024 Nucleated RBC Auto Ql (Bld)Nucleated erythrocytes [Presence] in Blood by Automated count0-0.5FMartin Memorial HospitalPlatelet mean volume Auto (Bld) [Entitic vol]Ordered By: Sandip Aguirre on 60-35-3232Ovmcwuik mean volume (Bld) [Entitic vol]Platelet mean volume [Entitic volume] in Blood by Automated count6.6-10.1FMartin Memorial HospitalPlatelets Auto (Bld) [#/Vol] Ordered By: Sandip Mirzating on 53-46-8644Rjpdstorj (Bld) [#/Vol]Platelets [#/volume] in Blood by Automated -955DrnrtzjwnOhiohealth O'Bleness Hospital RBC Auto (Bld) [#/Vol]Ordered By: Sandip Mirzating on 88-79-0548WPZ (Bld) [#/Vol] Erythrocytes [#/volume] in Blood by Automated countLow3.90-5.60[facility]len[facility] HospitalWBC Auto (Bld) [#/Vol]Ordered By: Sandip Bunting on 81-37-8585PMT (Bld) [#/Vol]Leukocytes [#/volume] in Blood by Automated countHigh 4.1-10.5FMartin Memorial HospitalInfectious Disease Office/Clinic Noteon 81-99-9118Rwlphapxut Disease Office/Clinic NoteAssessment/Plan 1. Surgical wound dehiscence [...] has had no fevers or chills. 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 Also has catheter for urinary retention. Has chronic lymphedema uses pumps at home. Admitted to [place] had MRI that showed fluid collection. History ofA-fib. Surgery was not done there due to need for cardiology services. Transferred to [facility] where he connected with cardiology. Actually [...] to witness patient stand with assist. This job specification writer was able to visualize back incision [...] (02/21/2024) Lumbar Wound Irri (more content not included)...[facility] SystemProvider Letteron 49-04-0178Jqacgwfq Letter Re: Tavo Wallis Carson Date of Visit: 06/07/2024 13:30:[address] Mcintyre, In regards to our mutual patient Vaughn Tavo Byrd. Attached you will find the most recent office visit note. Please call if you have any questions or concerns. Sincerely, Tamar Cunha APRN-C [facility] [address], [address] [place] [address] The following document(s) were included in the letter: June 07, 2024 14:05:12 EDT - (06/07/2024) Infectious Disease Office Visit Note [facility] SystemBasic Metabolic Panelon 28-21-3066Tsgux gap [Moles/Vol]14.1 mmol/LNormal6.0-15.0The Formerly [facility] Physician GroupComment on above:Order Comment: BMP ADD ON PER *Guerline BULLDOZER OPERATOR-SEED CLEANING MANAGER, Tamar Luis M* AT INFECTIOUS DISEASE AND TRAVEL MEDICINE. FAXED ORDER ASKING TO ADD ON TO BLOOD DRAWN EARLIER TODAY.Performed By: #### CRP, BMP, CBC, ESR ####[facility] [address] [place] [address] USACalcium [Mass/Vol]9.0 mg/dL Normal8.6-10.3The Formerly [facility] Physician GroupComment on above:Order Comment: BMP ADD ON PER *Guerline BULLDOZER OPERATOR-SEED CLEANING MANAGER, Tamar Luis M* AT INFECTIOUS DISEASE AND TRAVEL MEDICINE. FAXED ORDER ASKING TO ADD ON TO BLOOD DRAWN EARLIER TODAY.Performed By: #### CRP, BMP, CBC, ESR ####[facility] [address] [place] [address] USAChloride [Moles/Vol]100 mmol/WEpldyk06-233Tll Formerly [facility] Physician GroupComment on above:Order Comment: BMP ADD ON PER *Guerline BULLDOZER OPERATOR-SEED CLEANING MANAGER, Tamar Luis M* AT INFECTIOUS DISEASE AND TRAVEL MEDICINE. FAXED ORDER ASKING TO ADD ON TO BLOOD DRAWN EARLIER TODAY.Performed By: #### CRP, BMP, CBC, ESR ####[facility] [place] [address] USACO2 [Moles/Vol]28.8 mmol/VLgmthr73.0-31.0The Formerly [facility] Physician GroupComment on above:Order Comment: BMP ADD ON PER *Guerline BULLDOZER OPERATOR-SEED CLEANING MANAGER, Tamar Luis M* AT INFECTIOUS DISEASE AND TRAVEL MEDICINE. FAXED ORDER ASKING TO ADD ON TO BLOOD DRAWN EARLIER TODAY.Performed By: #### CRP, BMP, CBC, ESR ####[place] [place] [address] USACreatinine [Mass/Vol] 1.16 mg/dLNormal0.70-1.30The Formerly [facility] Physician GroupComment on above:Order Comment: BMP ADD ON PER *Guerline BULLDOZER OPERATOR-SEED CLEANING MANAGER, Tamar Luis M* AT INFECTIOUS DISEASE AND TRAVEL MEDICINE. FAXED ORDER ASKING TO ADD ON TO BLOOD DRAWN EARLIER TODAY. Performed By: #### CRP, BMP, CBC, ESR ####[place] [place] [address] USAGFR/1.73 sq M.predicted MDRD (S/P/Bld) [Vol rate/Area]mL/min/{1.73_m2}NormalThe Formerly [facility] Health Physician GroupComment on above: Order Comment: BMP ADD ON PER *Guerline BULLDOZER OPERATOR-SEED CLEANING MANAGER, Tamar Luis M* AT INFECTIOUS DISEASE AND TRAVEL MEDICINE. FAXED ORDER ASKING TO ADD ON TO BLOOD DRAWN EARLIER TODAY.Performed By: #### CRP, BMP, CBC, ESR ####[facility] [place] [address] USAGlucose [Mass/Vol]93 mg/sVOvmtrq82-695 The Formerly [facility] Physician GroupComment on above:Order Comment: BMP ADD ON PER *Guerline BULLDOZER OPERATOR-SEED CLEANING MANAGER, Tamar Luis M* AT INFECTIOUS DISEASE AND TRAVEL MEDICINE. FAXED ORDER ASKING TO ADD ON TO BLOOD DRAWN EARLIER TODAY.Result Comment: Random Glucose Reference Range is dependent on time and content of last meal. Glucose of more than 200 mg/dL in a nonstressed, ambulatory subject supports the diagnosis of Diabetes Mellitus. ADA recommended reference rangePerformed By: #### CRP, BMP, CBC, ESR ####[place] [place] [address] USAPotassium [Moles/Vol]3.9 mmol/LNormal3.5-5.1The Formerly [facility] Physician GroupComment on above:Order Comment: BMP ADD ON PER *Guerline BULLDOZER OPERATOR-SEED CLEANING MANAGER, Tamar Luis M* AT INFECTIOUS DISEASE AND TRAVEL MEDICINE. FAXED ORDER ASKING TO ADD ON TO BLOOD DRAWN EARLIER TODAY.Performed By: #### CRP, BMP, CBC, ESR ####[address] [address] USASodium [Moles/Vol]139 mmol/SNbzutd301-841Xwo Formerly [facility] Physician GroupComment on above:Order Comment: BMP ADD ON PER *Guerline BULLDOZER OPERATOR-SEED CLEANING MANAGER, Tamar Luis M* AT INFECTIOUS DISEASE AND TRAVEL MEDICINE. FAXED ORDER ASKING TO ADD ON TO BLOOD DRAWN EARLIER TODAY.Performed By: #### CRP, BMP, CBC, ESR ####[address] [address] USAUrea nitrogen [Mass/Vol]19 mg/dLNormal7-25The Formerly [facility] Physician GroupComment on above:Order Comment: BMP ADD ON PER *Guerline BULLDOZER OPERATOR-SEED CLEANING MANAGER, Tamar Luis M* AT INFECTIOUS DISEASE AND TRAVEL MEDICINE. FAXED ORDER ASKING TO ADD ON TO BLOOD DRAWN EARLIER TODAY. Performed By: #### CRP, BMP, CBC, ESR ####[address] [address] USABasophils Auto (Bld) [#/Vol]Ordered By: Sandip Bunsantiago on 17-68-0281Xjatmslrx (Bld) [#/Vol]Automated basophil count0.0-0.2 [facility] HospitalBasophils/100 WBC Auto (Bld)Ordered By: Sandip Bunting on 13-47-4227Rpjiviqio/100 WBC (Bld)Automated basophil %.[facility]len[facility] HospitalC reactive protein [Mass/volume] in Serum or Plasma Ordered By: Sandip Aguirre on 83-43-1379SPX [Mass/Vol]C reactive protein [Mass/volume] in Serum or PlasmaHigh0.0-0.5FMartin Memorial HospitalC- Reactive Proteinon 74-01-0393Q-Reactive Protein7.7 mg/dLHigh0.0-0.5The Formerly [facility] Physician GroupComment on above:Result Comment: PERFORMED BY:[facility] [place], [place] [phone] MEDICAL DIRECTORJAJA CATES M.D.Performed By: #### CRP, BMP, CBC, ESR ####[facility] [id number] [place] [address] USAOrder Comment: BMP ADD ON PER *Guerline BELLA, Tamar Asencio* AT INFECTIOUS DISEASE AND TRAVEL MEDICINE. FAXED ORDER ASKING TO ADD ON TO BLOOD DRAWN EARLIER TODAY. Calcium [Mass/volume] in Serum or PlasmaOrdered By: Sandip Bunting on 06-06-2024 Calcium [Mass/Vol]Calcium [Mass/volume] in Serum or Plasma8.6-10.3FMartin Memorial HospitalCarbon dioxide, total [Moles/volume] in Serum or Plasma Ordered By: Sandip Bunting on 90-77-8361UT4 [Moles/Vol]Carbon dioxide, total [Moles/volume] in Serum or Csnoaz10.0-31.0[facility] Chloride [Moles/volume] in Serum or PlasmaOrdered By: Sandip Bunting on 98-40-2693Xsejwoey [Moles/Vol]Chloride [Moles/volume] in Serum or Sgnhoe38-404 [facility]len[facility] HospitalComplete Blood Count Auto Diffon 06-06-2024 Basophils (Bld) [#/Vol]0.1 10*3/uLNormal0.0-0.2The [facility] Comment on above:Performed By: #### CRP, BMP, CBC, ESR ####[facility] [address] [place] [address] USABasophils/100 WBC (Bld)0.6 % Normal.The Formerly [facility] Physician GroupComment on above:Performed By: #### CRP, BMP, CBC, ESR ####[place] [address] USAEosinophils (Bld) [#/Vol]0.6 10*3/uLHigh0.0-0.45The Formerly [facility] Physician GroupComment on above:Performed By: #### CRP, BMP, CBC, ESR ####[place] [address] USAEosinophils/100 WBC (Bld)6.2 %Normal.The Formerly [facility] Physician GroupComment on above:Performed By: #### CRP, BMP, CBC, ESR ####[place] [address] USAErythrocyte distribution width (RBC) [Ratio]16.3 % High12.0-14.8The Formerly [facility] Physician GroupComment on above:Performed By: #### CRP, BMP, CBC, ESR ####[place] [address] USAHematocrit (Bld) [Volume fraction]28.8 %Low38.8-50.0The Formerly [facility] Physician GroupComment on above:Performed By: #### CRP, BMP, CBC, ESR ####[address] Hemoglobin (Bld) [Mass/Vol]9.6 g/dLLow13.0-17.0The [facility] Comment on above:Performed By: #### CRP, BMP, CBC, ESR ####[place] [address] USALymphocytes (Bld) [#/Vol]1.7 10*3/uLNormal1.00-4.8The Formerly [facility] Physician GroupComment on above:Performed By: #### CRP, BMP, CBC, ESR ####[place] [address] USALymphocytes/100 WBC (Bld)19.1 %Normal.The Formerly [facility] Physician GroupComment on above:Performed By: #### CRP, BMP, CBC, ESR ####[place] [address] [facility]ENTERM[facility] (RBC) [Entitic mass]30.1 ljAmffij84.5-35.2The Formerly [facility] Physician GroupComment on above:Performed By: #### CRP, BMP, CBC, ESR ####[address] (RBC) [Entitic vol]90.1 fLNormal 83.5-101The Formerly [facility] Physician GroupComment on above:Performed By: #### CRP, BMP, CBC, ESR ####[place] [address] USAMean Corpuscular HGB Conc33.4 g/zNBlgysf04.5-35.6The Formerly [facility] Physician GroupComment on above:Performed By: #### CRP, BMP, CBC, ESR ####[place] [address] [place] Monocytes (Bld) [#/Vol]0.6 10*3/uLNormal0.0-0.8The [facility] Comment on above:Performed By: #### CRP, BMP, CBC, ESR ####[place] [address] USAMonocytes/100 WBC (Bld)6.1 % Normal.The Formerly [facility] Physician GroupComment on above:Performed By: #### CRP, BMP, CBC, ESR ####[place] [address] USANeutrophils (Bld) [#/Vol]6.2 10*3/uLNormal1.8-7.7The Formerly [facility] Physician GroupComment on above:Performed By: #### CRP, BMP, CBC, ESR ####[place] [address] [place] Neutrophils/100 WBC (Bld)68.0 %Normal.The Formerly [facility] Physician GroupComment on above:Performed By: #### CRP, BMP, CBC, ESR ####[place] [address] USANRBC%0.1 /100{WBC}Normal0-0.5The Formerly [facility] Physician GroupComment on above:Performed By: #### CRP, BMP, CBC, ESR ####[address] Platelet mean volume (Bld) [Entitic vol]7.9 fLNormal6.6-10.1The Formerly [facility] Physician GroupComment on above:Performed By: #### CRP, BMP, CBC, ESR ####[address] Platelets (Bld) [#/Vol]270 10*3/tBKodqyu076-863Nmm [facility] Comment on above:Performed By: #### CRP, BMP, CBC, ESR ####[place] [address] USARBC (Bld) [#/Vol]3.19 10*6/uL Low3.90-5.60The [facility]ician [facility] HospitalComment on above:Performed By: #### CRP, BMP, CBC, ESR ####[place] [address] USAWBC (Bld) [#/Vol]9.1 10*3/uLNormal4.1-10.5The Formerly [facility] Physician GroupComment on above:Performed By: #### CRP, BMP, CBC, ESR ####[place] [address] USACreatinine [Mass/volume] in Serum or PlasmaOrdered By: Sandip Bunting on 06-06-2024 Creatinine [Mass/Vol]Creatinine [Mass/volume] in Serum or Plasma0.70-1.30 [facility] HospitalEosinophils Auto (Bld) [#/Vol]Ordered By: Sandip Bunting on 18-13-3165Rkdciezpews (Bld) [#/Vol]Automated eosinophil count High0.0-0.45[facility] HospitalEosinophils/100 WBC Auto (Bld) Ordered By: Sandip Bunting on 76-51-3094Aclupmzofld/100 WBC (Bld)Automated eosinophil %.[facility]len[facility] HospitalErythrocyte Sedimentation Rateon 20-18-1022SCZ (Bld) [Velocity]72 mm/hHigh0-19The [facility] Comment on above:Result Comment: PERFORMED BY:[facility] [place], [place] [phone] MEDICAL DIRECTORMOKAIT CATES M.D.Performed By: #### CRP, BMP, CBC, ESR ####[facility] [place] [address] [facility] Erythrocyte distribution width Auto (RBC) [Ratio]Ordered By: Sandip Bunting on 61-19-0059Bvrdnbgmgfm distribution width (RBC) [Ratio]Erythrocyte distribution width [Ratio] by Automated riqohOqor14.0-14.8[facility] Erythrocyte sedimentation rate by Photometric methodOrdered By: Sandip Bunting on 96-49-5426TEN Photometric method (Bld) [Velocity]Erythrocyte sedimentation rate by Photometric methodHigh0-19[facility] HospitalGlucose [Mass/volume] in Serum or PlasmaOrdered By: Sandip Bunting on 31-93-3512Vrtnhnd [Mass/Vol]Glucose [Mass/volume] in Serum or Qjvvjp68-258HfbbbpdwnOhiohealth O'Bleness HospitalComment on above:ADA recommended reference rangeRandom Glucose Reference Range is dependent on time and content of last meal. Glucose of more than 200 mg/dL in a nonstressed, ambulatory subject supports the diagnosisof Diabetes Mellitus.Hematocrit Auto (Bld) [Volume fraction]Ordered By: Sandip Bunting on 50-27-9617Wubsicpsjk (Bld) [Volume fraction]Hematocrit [Volume Fraction] of Blood by Automated qciacOpx27.8-50.0[facility] HospitalHemoglobin [Mass/volume] in BloodOrdered By: Sandip Bunting on 06-06-2024 Hemoglobin (Bld) [Mass/Vol]Hemoglobin [Mass/volume] in SdujrDbp27.0-17.0 [facility] HospitalLeukocytes [#/volume] corrected for nucleated erythrocytes in Blood by Automated counOrdered By: Sandip Bunting on 06-06-2024 WBC corrected for nucl RBC Auto (Bld) [#/Vol]Leukocytes [#/volume] corrected for nucleated erythrocytes in Blood by Automated coun4.1-10.5FMartin Memorial HospitalLymphocytes Auto (Bld) [#/Vol]Ordered By: Sandip Bunting on 10-53-9327Wbeirmpcrkf (Bld) [#/Vol]Lymphocytes [#/volume] in Blood by Automated count1.00-4.8[facility]len[facility] HospitalLymphocytes/100 WBC Auto (Bld) Ordered By: Sandip Bunting on 82-89-8500Vdjhixajoaz/100 WBC (Bld)Lymphocytes/100 leukocytes in Blood by Automated count.[facility]'Bleness HospitalMCH Auto (RBC) [Entitic mass]Ordered By: Sandip Bunting on 95-16-3077LTL (RBC) [Entitic mass]MCH [Entitic mass] by Automated count27.5-35.2FMartin Memorial HospitalMCHC Auto (RBC) [Mass/Vol]Ordered By: Sandip Bunting on 06-06-2024 MCHC (RBC) [Mass/Vol]MCHC [Mass/volume] by Automated count32.5-35.6FMartin Memorial HospitalMCV Auto (RBC) [Entitic vol]Ordered By: Sandip Bunting on 44-19-4523JES (RBC) [Entitic vol]MCV [Entitic volume] by Automated count83.5-101 [facility] HospitalMonocytes Auto (Bld) [#/Vol]Ordered By: Sandip Bunting on 55-68-4823Efcjofrij (Bld) [#/Vol]Automated blood monocyte count 0.0-0.8[facility] HospitalMonocytes/100 WBC Auto (Bld)Ordered By: Sandip Bunting on 96-88-7919Sbrdzpwnm/100 WBC (Bld)Automated monocyte %. [facility] HospitalNeutrophils Auto (Bld) [#/Vol]Ordered By: Sandip Bunting on 84-04-6475Ngxjjxyabbj (Bld) [#/Vol]Neutrophils [#/volume] in Blood by Automated count1.8-7.7FMartin Memorial HospitalNeutrophils/100 WBC Auto (Bld)Ordered By: Sandip Bunting on 59-92-7682Uvwunpsglij/100 WBC (Bld) Automated neutrophil %.[facility] HospitalNo Panel Information Ordered By: Sandip Bunting on 66-09-5691Fhfsjsarf GFR (CKD-EPI)> 60.0 mL/Min [facility] HospitalPharmacy Creatinine Clearance (ChemN/AFMartin Memorial Hospital> 60.0 mL/MinOhiohealth O'Bleness HospitalN/A [facility]leness HospitalNucleated erythrocytes [Presence] in Blood by Automated countOrdered By: Sandip Bunting on 44-68-6416Ohgavalku RBC Auto Ql (Bld)Nucleated erythrocytes [Presence] in Blood by Automated count0-0.5FMartin Memorial HospitalPlatelet mean volume Auto (Bld) [Entitic vol]Ordered By: Sandip Bunting on 24-37-6196Oxycikrb mean volume (Bld) [Entitic vol]Platelet mean volume [Entitic volume] in Blood by Automated count6.6-10.1FMartin Memorial HospitalPlatelets Auto (Bld) [#/Vol]Ordered By: Sandip Bunting on 10-49-5773Fmcnjwyoy (Bld) [#/Vol]Platelets [#/volume] in Blood by Automated alfrd892-897UaaamdqgwOhiohealth O'Bleness HospitalPotassium [Moles/volume] in Serum or PlasmaOrdered By: Sandip Bunting on 35-45-6341Kzpsdjrsc [Moles/Vol]Potassium [Moles/volume] in Serum or Plasma3.5-5.1FMartin Memorial HospitalRBC Auto (Bld) [#/Vol]Ordered By: Sandip Bunting on 05-36-5771MRY (Bld) [#/Vol] Erythrocytes [#/volume] in Blood by Automated countLow3.90-5.60Highland District Hospitalerum or plasma anion gap determinationOrdered By: Sandip Bunting on 54-58-0639Bcpol gap [Moles/Vol]Serum or plasma anion gap determination6.0-15.0Highland District Hospitalodium [Moles/volume] in Serum or PlasmaOrdered By: Sandip Bunting on 47-21-5137Obsqsc [Moles/Vol]Sodium [Moles/volume] in Serum or Seyhcx552-708VptumvwkkOhiohealth O'Bleness HospitalUrea nitrogen [Mass/volume] in Serum or PlasmaOrdered By: Sandip Bunting on 68-75-3336Rxbl nitrogen [Mass/Vol]Urea nitrogen [Mass/volume] in Serum or Plasma 09-28Ohiohealth O'Bleness HospitalWBC Auto (Bld) [#/Vol]Ordered By: Sandip Aguirre on 09-37-9053WCD (Bld) [#/Vol]Leukocytes [#/volume] in Blood by Automated count4.1-10.5FMartin Memorial HospitalUrology Office/Clinic Noteon 37-51-0417Ombpqra Office/Clinic NoteUrology Office/Clinic Note Chief Complaint New [...] lumbar decompression w/ fusion 02/21/24. Discharged to [facility] for rehab. Subsequently admitted to [facility] 03/10/2024-03/15/2024 for LIS secondary to acute urinary [...] patient has indwelling cath Patient resides at [facility] for rehab. Reports his cath has [...] perioperative complications. Lumbar spine MRI 04/03/2024 at [facility] for prostate sizing -Schedule cystoscopy. The risks [...] BPH medications. -See #1 3. Anticoagulated (Z79.01: longterm (current) use of anticoagulants) On Eliquis for [...] interspace; lumbar (wi (more content notincluded)...[facility] SystemComment on above:Result Comment: Electronically Signed By: Melina LECHUGA, Ambar\.br\Date and Time Signed: 06/02/24 14:35 EDTB-Type Natriuretic Peptideon 05-28-2024 Natriuretic peptide B (Bld) [Mass/Vol]407.0 pg/mLHigh5-100The Formerly Park Ridge Health Physician GroupComment on above:Result Comment: PERFORMED BY:[facility] [place], [place] [phone] MEDICAL DIRECTORJAJA CATES M.D.Performed By: #### BNP, ESR, CBC, CRP ####[facility] [id number] [place] [address] [facility] Basophils Auto (Bld) [#/Vol]Ordered By: Sandip Bunting on 59-82-6283Ntsbtwxhr (Bld) [#/Vol]Automated basophil count0.0-0.2FMartin Memorial Hospital Basophils/100 WBC Auto (Bld)Ordered By: Sandip Bunting on 05-28-2024 Basophils/100 WBC (Bld)Automated basophil %.Ohiohealth O'Bleness HospitalC reactive protein [Mass/volume] in Serum or PlasmaOrdered By: Sandip Bunting on 59-74-7237ICZ [Mass/Vol]C reactive protein [Mass/volume] in Serum or PlasmaHigh 0.0-0.5FMartin Memorial HospitalC-Reactive Proteinon 92-64-0310U- Reactive Protein8.8 mg/dLHigh0.0-0.5The Formerly [facility] Physician GroupComment on above:Result Comment: PERFORMED BY:[address] [place], [place] [phone] MEDICAL DIRECTORJAJA WHITE M.D.Performed By: #### BNP, ESR, CBC, CRP ####[place] [id number] USAComplete Blood Count Auto Diff on 59-79-5131Xjqpveadj (Bld) [#/Vol]0.1 10*3/uLNormal0.0-0.2The Formerly [facility] Physician GroupComment on above:Performed By: #### BNP, ESR, CBC, CRP ####[place] [id number] [place] Basophils/100 WBC (Bld)1.0 %Normal.The Former[facility] Physician GroupComment on above:Performed By: #### BNP, ESR, CBC, CRP ####[place] [address] USAEosinophils (Bld) [#/Vol]0.5 10*3/uL High0.0-0.45The Formerly [facility] Health Physician GroupComment on above:Performed By: #### BNP, ESR, CBC, CRP ####[place] [address] USAEosinophils/100 WBC (Bld)8.2 %Normal.[facility] Comment on above:Performed By: #### BNP, ESR, CBC, CRP ####[place] [address] USAErythrocyte distribution width (RBC) [Ratio]16.7 %High12.0-14.8The Formerly [facility] Health Physician GroupComment on above: Performed By: #### BNP, ESR, CBC, CRP ####[place] [address] USAHematocrit (Bld) [Volume fraction]25.2 %Low 38.8-50.0The Former[facility] Physician GroupComment on above:Performed By: #### BNP, ESR, CBC, CRP ####[place] [address] USAHemoglobin (Bld) [Mass/Vol]8.6 g/dLLow13.0-17.0The Formerly [facility] Physician GroupComment on above:Performed By: #### BNP, ESR, CBC, CRP ####[place] [address] USALymphocytes (Bld) [#/Vol]1.5 10*3/uLNormal1.00-4.8The Formerly [facility] Physician GroupComment on above: Performed By: #### BNP, ESR, CBC, CRP ####[place] [address] USALymphocytes/100 WBC (Bld)26.1 %Normal.The Former[facility] Physician GroupComment on above:Performed By: #### BNP, ESR, CBC, CRP ####[place] [address] [facility]ENTERMCH (RBC) [Entitic mass]30.7 sgWqsstt30.5-35.2The Formerly [facility] Physician GroupComment on above:Performed By: #### BNP, ESR, CBC, CRP ####[place] [address] [facility]ENTERMCV (RBC) [Entitic vol]90.1 fLNormal 83.5-101The Formerly [facility] Health Physician GroupComment on above:Performed By: #### BNP, ESR, CBC, CRP ####[place] [address] USAMean Corpuscular HGB Conc34.1 g/eXCemyuq36.5-35.6The Formerly [facility] Physician GroupComment on above:Performed By: #### BNP, ESR, CBC, CRP ####[place] [address] [place] Monocytes (Bld) [#/Vol]0.4 10*3/uLNormal0.0-0.8The [facility] Comment on above:Performed By: #### BNP, ESR, CBC, CRP ####[place] [address] USAMonocytes/100 WBC (Bld)6.5 % Normal.The Formerly [facility] Health Physician GroupComment on above:Performed By: #### BNP, ESR, CBC, CRP ####[place] [address] USANeutrophils (Bld) [#/Vol]3.3 10*3/uLNormal1.8-7.7The Formerly [facility] Physician GroupComment on above:Performed By: #### BNP, ESR, CBC, CRP ####[address] Neutrophils/100 WBC (Bld)58.2 %Normal.The Former[facility] Physician GroupComment on above:Performed By: #### BNP, ESR, CBC, CRP ####[place] [address] USANRBC%0.1 /100{WBC}Normal0-0.5The Formerly [facility] Physician GroupComment on above:Performed By: #### BNP, ESR, CBC, CRP ####[address] Platelet mean volume (Bld) [Entitic vol]7.9 fLNormal6.6-10.1The Formerly [facility] Physician GroupComment on above:Performed By: #### BNP, ESR, CBC, CRP ####[address] Platelets (Bld) [#/Vol]186 10*3/aYIiuxkn109-112Vtp [facility] Comment on above:Performed By: #### BNP, ESR, CBC, CRP ####[place] [address] USARBC (Bld) [#/Vol]2.80 10*6/uL Low3.90-5.60The Former[facility] Physician GroupComment on above:Performed By: #### BNP, ESR, CBC, CRP ####[place] [id number] [place] [address] USAWBC (Bld) [#/Vol]5.7 10*3/uLNormal4.1-10.5The Formerly [facility] Physician GroupComment on above:Performed By: #### BNP, ESR, CBC, CRP ####[address] [address] USAEosinophils Auto (Bld) [#/Vol]Ordered By: Sandip Bunting on 50-07-0247Quohbgndaon (Bld) [#/Vol] Automated eosinophil countHigh0.0-0.45[facility] Eosinophils/100 WBC Auto (Bld)Ordered By: Sandip Bunting on 05-28-2024 Eosinophils/100 WBC (Bld)Automated eosinophil %.[facility]'Bleness HospitalErythrocyte Sedimentation Rateon 05-60-7219CNO (Bld) [Velocity]62 mm/hHigh 0-19The Formerly [facility] Physician GroupComment on above:Result Comment: PERFORMED BY:[address] [place], [place] [phone] MEDICAL DIRECTORJAJA CATES M.D.Performed By: #### BNP, ESR, CBC, CRP ####[address] [address] USAErythrocyte distribution width Auto (RBC) [Ratio]Ordered By: Sandip Bunting on 12-54-4902Qefeullpfsp distribution width (RBC) [Ratio]Erythrocyte distribution width [Ratio] by Automated thitxRtpg63.0-14.8[facility]Bleness HospitalErythrocyte sedimentation rate by Photometric methodOrdered By: Sandip Bunting on 03-52-2672VGY Photometric method (Bld) [Velocity]Erythrocyte sedimentation rate by Photometric methodHigh0-19[facility]Blen[facility] HospitalHematocrit Auto (Bld) [Volume fraction]Ordered By: Sandip Bunting on 89-15-1267Yhbqvhjovg (Bld) [Volume fraction]Hematocrit [Volume Fraction] of Blood by Automated rfdzeMrc49.8-50.0[facility]Blen[facility] HospitalHemoglobin [Mass/volume] in BloodOrdered By: Sandip Bunting on 15-89-6617Atphbvafit (Bld) [Mass/Vol]Hemoglobin [Mass/volume] in WrtyjSjr14.0-17.0[facility]len[facility] HospitalLeukocytes [#/volume] corrected for nucleated erythrocytes in Blood by Automated counOrdered By: Sandip Bunting on 99-39-6840HLB corrected for nucl RBC Auto (Bld) [#/Vol]Leukocytes [#/volume] corrected for nucleated erythrocytes in Blood by Automated coun4.1-10.5FMartin Memorial Hospital Lymphocytes Auto (Bld) [#/Vol]Ordered By: Sandip Bunting on 05-28-2024 Lymphocytes (Bld) [#/Vol]Lymphocytes [#/volume] in Blood by Automated count 1.00-4.8[facility]len[facility] HospitalLymphocytes/100 WBC Auto (Bld)Ordered By: Sandip Bunting on 38-38-4047Esyyxdefhww/100 WBC (Bld)Lymphocytes/100 leukocytes in Blood by Automated count.[facility]Blen[facility] HospitalMCH Auto (RBC) [Entitic mass]Ordered By: Sandip Bunting on 99-06-5409HRJ (RBC) [Entitic mass]MCH [Entitic mass] by Automated count27.5-35.2FMartin Memorial HospitalMCHC Auto (RBC) [Mass/Vol]Ordered By: Sandip Bunting on 65-12-2762ADZZ (RBC) [Mass/Vol]MCHC [Mass/volume] by Automated count32.5-35.6FMartin Memorial HospitalMCV Auto (RBC) [Entitic vol]Ordered By: Sandip Bunting on 74-22-6325LCF (RBC) [Entitic vol]MCV [Entitic volume] by Automated count83.5-101 [facility] HospitalMonocytes Auto (Bld) [#/Vol]Ordered By: Sandip Bunting on 06-27-4256Csqosmonk (Bld) [#/Vol]Automated blood monocyte count 0.0-0.8[facility] HospitalMonocytes/100 WBC Auto (Bld)Ordered By: Sandip Bunting on 88-71-2995Ncnhhxazs/100 WBC (Bld)Automated monocyte %. [facility] HospitalNatriuretic peptide B [Mass/Vol]Ordered By: Sandip Bunting on 35-66-2786Urbgcmxnjwb peptide B (Bld) [Mass/Vol]BNP ser/plas High5-100[facility] HospitalNeutrophils Auto (Bld) [#/Vol]Ordered By: Sandip Bunting on 52-55-6016Krcrpmhwptq (Bld) [#/Vol]Neutrophils [#/volume] in Blood by Automated count1.8-7.7FMartin Memorial Hospital Neutrophils/100 WBC Auto (Bld)Ordered By: Sandip Bunting on 05-28-2024 Neutrophils/100 WBC (Bld)Automated neutrophil %.[facility] HospitalNucleated erythrocytes [Presence] in Blood by Automated countOrdered By: Sandip Bunting on 14-86-2128Fldemariv RBC Auto Ql (Bld)Nucleated erythrocytes [Presence] in Blood by Automated count0-0.5FMartin Memorial Hospital Platelet mean volume Auto (Bld) [Entitic vol]Ordered By: Sandip Bunting on 36-12-1010Gdgsrxui mean volume (Bld) [Entitic vol]Platelet mean volume [Entitic volume] in Blood by Automated count6.6-10.1FMartin Memorial Hospital Platelets Auto (Bld) [#/Vol]Ordered By: Sandip Bunting on 16-17-1401P[address] (Bld) [#/Vol]Platelets [#/volume] in Blood by Automated -924XwsviqxdiOhiohealth O'Bleness HospitalRBC Auto (Bld) [#/Vol]Ordered By: Sandip Bunting on 16-16-1636SNP (Bld) [#/Vol]Erythrocytes [#/volume] in Blood by Automated count Low3.90-5.60[facility] HospitalWBC Auto (Bld) [#/Vol]Ordered By: Snadip Bunting on 45-79-9738ICW (Bld) [#/Vol]Leukocytes [#/volume] in Blood by Automated count4.1-10.5FMartin Memorial HospitalB-Type Natriuretic Peptideon 46-55-9243Tabsegrhcka peptide B (Bld) [Mass/Vol]300.0 pg/mLHigh5-100 The [facility] Physician GroupComment on above:Result Comment: PERFORMED BY:[place] [address] [place], [place] [phone] MEDICAL DIRECTORJAJA CATES M.D.Performed By: #### BNP, ESR, CRP, CBC ####[address] [address] USABasophils Auto (Bld) [#/Vol]Ordered By: Sandip Bunting on 05-21-2024 Basophils (Bld) [#/Vol]Automated basophil count0.0-0.2FMartin Memorial HospitalBasophils/100 WBC Auto (Bld)Ordered By: Sandip Bunting on 05-21-2024 Basophils/100 WBC (Bld)Automated basophil %.[facility] HospitalC reactive protein [Mass/volume] in Serum or PlasmaOrdered By: Sandip Bunting on 36-61-9944WOO [Mass/Vol]C reactive protein [Mass/volume] in Serum or PlasmaHigh 0.0-0.5FMartin Memorial HospitalC-Reactive Proteinon 73-60-4320O- Reactive Protein3.8 mg/dLHigh0.0-0.5The Formerly [facility] Physician GroupComment on above:Result Comment: PERFORMED BY:[place] [address] [place], [place] [phone] MEDICAL DIRECTORJAJA WHITE M.D.Performed By: #### BNP, ESR, CRP, CBC ####[address] [address] USAComplete Blood Count Auto Diff on 03-81-6189Ywkulltqr (Bld) [#/Vol]0.0 10*3/uLNormal0.0-0.2The Formerly [facility] Physician GroupComment on above:Performed By: #### BNP, ESR, CRP, CBC ####[address] [address] [place] Basophils/100 WBC (Bld)1.1 %Normal.The [facility] Physician GroupComment on above:Performed By: #### BNP, ESR, CRP, CBC ####[place] [address] USAEosinophils (Bld) [#/Vol]0.4 10*3/uL Normal0.0-0.45The Formerly [facility] Physician GroupComment on above:Performed By: #### BNP, ESR, CRP, CBC ####[place] [address] USAEosinophils/100 WBC (Bld)8.7 %Normal.[facility] Comment on above:Performed By: #### BNP, ESR, CRP, CBC ####[place] [address] USAErythrocyte distribution width (RBC) [Ratio]16.4 %High12.0-14.8The Former[facility] Physician GroupComment on above: Performed By: #### BNP, ESR, CRP, CBC ####[place] [address] USAHematocrit (Bld) [Volume fraction]23.8 %Low 38.8-50.0The Formerly [facility] Physician GroupComment on above:Performed By: #### BNP, ESR, CRP, CBC ####[place] [address] USAHemoglobin (Bld) [Mass/Vol]7.9 g/dLLow13.0-17.0The Formerly [facility] Physician GroupComment on above:Performed By: #### BNP, ESR, CRP, CBC ####[place] [address] USALymphocytes (Bld) [#/Vol]1.5 10*3/uLNormal1.00-4.8The Formerly [facility] Physician GroupComment on above: Performed By: #### BNP, ESR, CRP, CBC ####[place] [address] USALymphocytes/100 WBC (Bld)36.1 %Normal.The [facility] Physician GroupComment on above:Performed By: #### BNP, ESR, CRP, CBC ####[address] [place] [address] USAMCH (RBC) [Entitic mass]30.4 uxYqlzxu67.5-35.2The Formerly [facility] Physician GroupComment on above:Performed By: #### BNP, ESR, CRP, CBC ####[address] (RBC) [Entitic vol]90.8 fLNormal 83.5-101The Formerly [facility] Physician GroupComment on above:Performed By: #### BNP, ESR, CRP, CBC ####[place] [address] USAMean Corpuscular HGB Conc33.4 g/aCKcpgwo41.5-35.6The Formerly [facility] Physician GroupComment on above:Performed By: #### BNP, ESR, CRP, CBC ####[place] [address] [place] Monocytes (Bld) [#/Vol]0.4 10*3/uLNormal0.0-0.8[facility] Comment on above:Performed By: #### BNP, ESR, CRP, CBC ####[place] [address] USAMonocytes/100 WBC (Bld)9.5 % Normal.The [facility] Physician GroupComment on above:Performed By: #### BNP, ESR, CRP, CBC ####[place] [address] USANeutrophils (Bld) [#/Vol]1.9 10*3/uLNormal1.8-7.7The Formerly [facility] Physician GroupComment on above:Performed By: #### BNP, ESR, CRP, CBC ####[place] [address] [place] Neutrophils/100 WBC (Bld)44.6 %Normal.The [facility] Physician GroupComment on above:Performed By: #### BNP, ESR, CRP, CBC ####[place] [address] USANRBC%0.2 /100{WBC}Normal0-0.5The Formerly [facility] Physician GroupComment on above:Performed By: #### BNP, ESR, CRP, CBC ####[address] Platelet mean volume (Bld) [Entitic vol]7.5 fLNormal6.6-10.1The Formerly [facility] Physician GroupComment on above:Performed By: #### BNP, ESR, CRP, CBC ####[address] Platelets (Bld) [#/Vol]185 10*3/gPTwzztd687-240Vjp [facility] Comment on above:Performed By: #### BNP, ESR, CRP, CBC ####[place] [address] USARBC (Bld) [#/Vol]2.62 10*6/uL Low3.90-5.60The [facility] Physician GroupComment on above:Performed By: #### BNP, ESR, CRP, CBC ####[place] [address] USAWBC (Bld) [#/Vol]4.2 10*3/uLNormal4.1-10.5The Former[facility] Physician GroupComment on above:Performed By: #### BNP, ESR, CRP, CBC ####[place] [address] USAEosinophils Auto (Bld) [#/Vol]Ordered By: Sandip Aguirre on 27-13-4604Fzizygwudee (Bld) [#/Vol] Automated eosinophil count0.0-0.45[facility] Eosinophils/100 WBC Auto (Bld)Ordered By: Sandip Aguirre on 05-21-2024 Eosinophils/100 WBC (Bld)Automated eosinophil %.[facility] HospitalErythrocyte Sedimentation Rateon 37-13-3674RDM (Bld) [Velocity]35 mm/hHigh 0-19The [facility] Physician GroupComment on above:Result Comment: PERFORMED BY:[address] [place], [place] [phone] MEDICAL DIRECTORJAJA CATES M.D.Performed By: #### BNP, ESR, CRP, CBC ####[facility] [address] [place] [address] [facility]ENTEREryth[facility] distribution width Auto (RBC) [Ratio]Ordered By: Sandip Bunsantiago on 62-15-8003Tnvbadlxlve distribution width (RBC) [Ratio]Erythrocyte distribution width [Ratio] by Automated qrkhmCdxj70.0-14.8[facility] HospitalErythrocyte sedimentation rate by Photometric methodOrdered By: Sandip Bunting on 03-42-1470JYL Photometric method (Bld) [Velocity]Erythrocyte sedimentation rate by Photometric methodHigh0-19[facility] HospitalHematocrit Auto (Bld) [Volume fraction]Ordered By: Sandip Bunting on 42-27-0611Liwfpaveuc (Bld) [Volume fraction]Hematocrit [Volume Fraction] of Blood by Automated tuytbYyc56.8-50.0[facility] HospitalHemoglobin [Mass/volume] in BloodOrdered By: Sandip Bunting on 16-97-4101Quazrytomc (Bld) [Mass/Vol]Hemoglobin [Mass/volume] in ZfdphPng84.0-17.0[facility] HospitalInfectious Disease Office/Clinic Noteon 42-77-5216Jnftudbmuy Disease Office/Clinic NoteAssessment/Plan 1. Surgical wound dehiscence Plan: This time we will send orders over to discontinue midline. Would like repeat lab work on 05/28. CBC/basic metabolic profile, CRP, and sed rate. Will call results. Will see how he does off antibiotics. 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 [...] should have completed treatment on 05/17/2024. This job specification writer did review most recent lab work [...] the andre [1] he had surgery at [facility] in [place].Postoperatively gained a lot of fluid weight. Also has catheter for urinary retention. Has chronic lymphedema uses pumps at home. Admitted to [place] had MRI that showed fluid collection. History ofA-fib. Surgery was not done there due to need for cardiology services. Transferred to [facility] where he connected with cardiology. Actually [...] Daily atorvastatin 40 m (more content not included)...[facility] SystemLeukocytes [#/volume] corrected for nucleated erythrocytes in Blood by Automated counOrdered By: Sandip Aguirre on 54-97-0849BCS corrected for nucl RBC Auto (Bld) [#/Vol]Leukocytes [#/volume] corrected for nucleated erythrocytes in Blood by Automated coun4.1-10.5FMartin Memorial HospitalLymphocytes Auto (Bld) [#/Vol]Ordered By: Sandip Aguirre on 53-31-7137Nummafuvumq (Bld) [#/Vol]Lymphocytes [#/volume] in Blood by Automated count1.00-4.8[facility] HospitalLymphocytes/100 WBC Auto (Bld)Ordered By: Sandip Bunting on 57-92-0843Gwvkhkvjjsn/100 WBC (Bld)Lymphocytes/100 leukocytes in Blood by Automated count.[facility] HospitalMCH Auto (RBC) [Entitic mass] Ordered By: Sandip Bunting on 52-50-4111QYL (RBC) [Entitic mass]MCH [Entitic mass] by Automated count27.5-35.2FMartin Memorial HospitalMCHC Auto (RBC) [Mass/Vol]Ordered By: Sandip Bunting on 40-20-7739MTFW (RBC) [Mass/Vol] MCHC [Mass/volume] by Automated count32.5-35.6FMartin Memorial Hospital MCV Auto (RBC) [Entitic vol]Ordered By: Sandip Bunting on 94-67-1958YYQ (RBC) [Entitic vol]MCV [Entitic volume] by Automated count83.5-101[facility] HospitalMonocytes Auto (Bld) [#/Vol]Ordered By: Sandip Bunting on 48-88-9688Kxvlvgxsv (Bld) [#/Vol]Automated blood monocyte count0.0-0.8[facility] HospitalMonocytes/100 WBC Auto (Bld)Ordered By: Sandip Bunting on 15-30-4218Nsknxflzh/100 WBC (Bld)Automated monocyte %.[facility] HospitalNatriuretic peptide B [Mass/Vol]Ordered By: Sandip Bunting on 51-73-6973Smaphuaqidb peptide B (Bld) [Mass/Vol]BNP ser/plasHigh5-100[facility] HospitalNeutrophils Auto (Bld) [#/Vol]Ordered By: Sandip Bunting on 08-17-5642Kqxtydydrvw (Bld) [#/Vol]Neutrophils [#/volume] in Blood by Automated count1.8-7.7FMartin Memorial HospitalNeutrophils/100 WBC Auto (Bld)Ordered By: Sandip Bunting on 63-71-0590Wexzbcewkff/100 WBC (Bld)Automated neutrophil %.[facility] HospitalNucleated erythrocytes [Presence] in Blood by Automated countOrdered By: Sandip Bunting on 74-96-3838Hcqxbaxie RBC Auto Ql (Bld)Nucleated erythrocytes [Presence] in Blood by Automated count0-0.5 [facility] HospitalPlatelet mean volume Auto (Bld) [Entitic vol] Ordered By: Sandip Bunting on 94-68-7848Edwsbqvp mean volume (Bld) [Entitic vol] Platelet mean volume [Entitic volume] in Blood by Automated count6.6-10.1 [facility] HospitalPlatelets Auto (Bld) [#/Vol]Ordered By: Sandip Bunting on 24-80-2271Czqyjspsm (Bld) [#/Vol]Platelets [#/volume] in Blood by Automated -068GlbvndgqqOhiohealth O'Bleness HospitalRBC Auto (Bld) [#/Vol] Ordered By: Sandip Bunting on 44-76-2292CHJ (Bld) [#/Vol]Erythrocytes [#/volume] in Blood by Automated countLow3.90-5.60[facility] HospitalWBC Auto (Bld) [#/Vol]Ordered By: Sandip Bunting on 47-99-5890BQL (Bld) [#/Vol] Leukocytes [#/volume] in Blood by Automated count4.1-10.5FMartin Memorial HospitalB-Type Natriuretic Peptideon 51-19-8079Xutddvltujr peptide B (Bld) [Mass/Vol]322.0 pg/mLHigh5-100The [facility] Physician GroupComment on above: Result Comment: PERFORMED BY:[facility] [place], [place] [phone] MEDICAL DIRECTORJAJA WHITE M.D.Performed By: #### CBC, CRP, BNP, ESR ####[address] [place] [address] USABasophils Auto (Bld) [#/Vol] Ordered By: Sandip Bunting on 75-69-1696Osbqrjdcc (Bld) [#/Vol]Automated basophil count0.0-0.2FMartin Memorial HospitalBasophils/100 WBC Auto (Bld)Ordered By: Sandip Bunting on 81-39-7628Oeyigsepu/100 WBC (Bld)Automated basophil %.[facility] HospitalC reactive protein [Mass/volume] in Serum or PlasmaOrdered By: Sandip Aguirre on 09-66-7698LUZ [Mass/Vol]C reactive protein [Mass/volume] in Serum or PlasmaHigh0.0-0.5FMartin Memorial HospitalC-Reactive Proteinon 87-74-6124F-Reactive Protein6.0 mg/dLHigh0.0-0.5The [facility] Physician GroupComment on above:Result Comment: PERFORMED BY:[address] [place], [place] [phone] MEDICAL DIRECTORJAJA CATES M.D.Performed By: #### CBC, CRP, BNP, ESR ####[place] [id number] [facility] Complete Blood Count Auto Diffon 61-26-8120Drnwhjeuo (Bld) [#/Vol]0.0 10*3/uL Normal0.0-0.2The Formerly [facility] Physician GroupComment on above:Performed By: #### CBC, CRP, BNP, ESR ####[address] [address] USABasophils/100 WBC (Bld)0.9 %Normal.[facility] Comment on above:Performed By: #### CBC, CRP, BNP, ESR ####[address] [address] USAEosinophils (Bld) [#/Vol]0.5 10*3/uLHigh0.0-0.45The Formerly [facility] Physician GroupComment on above:Performed By: #### CBC, CRP, BNP, ESR ####[address] [address] USAEosinophils/100 WBC (Bld)10.9 %Normal.The [facility] Physician GroupComment on above:Performed By: #### CBC, CRP, BNP, ESR ####[address] [address] [facility] Erythrocyte distribution width (RBC) [Ratio]16.9 %High12.0-14.8The Formerly [facility] Ridge Health Physician GroupComment on above:Performed By: #### CBC, CRP, BNP, ESR ####[place] [address] [place] Hematocrit (Bld) [Volume fraction]24.8 %Low38.8-50.0The Formerly [facility] Health Physician GroupComment on above:Performed By: #### CBC, CRP, BNP, ESR ####[place] [address] USAHemoglobin (Bld) [Mass/Vol]8.3 g/dLLow13.0-17.0The Formerly [facility] Health Physician GroupComment on above: Performed By: #### CBC, CRP, BNP, ESR ####[place] [address] USALymphocytes (Bld) [#/Vol]1.4 10*3/uLNormal 1.00-4.8The Formerly [facility] Physician GroupComment on above:Performed By: #### CBC, CRP, BNP, ESR ####[place] [address] USALymphocytes/100 WBC (Bld)29.6 %Normal.[facility] Comment on above:Performed By: #### CBC, CRP, BNP, ESR ####[place] [address] USAMCH (RBC) [Entitic mass]30.4 sbIwffeg58.5-35.2The Formerly [facility] Physician GroupComment on above:Performed By: #### CBC, CRP, BNP, ESR ####[place] [address] USAMCV (RBC) [Entitic vol]90.6 oCXarcsa12.5-101The Formerly [facility] Health Physician GroupComment on above:Performed By: #### CBC, CRP, BNP, ESR ####[place] [address] USAMean Corpuscular HGB Conc33.5 g/nOCgwdxs25.5-35.6The Formerly [facility] Physician GroupComment on above:Performed By: #### CBC, CRP, BNP, ESR ####[place] [address] USAMonocytes (Bld) [#/Vol]0.4 10*3/uL Normal0.0-0.8The Formerly [facility] Health Physician GroupComment on above:Performed By: #### CBC, CRP, BNP, ESR ####[place] [address] USAMonocytes/100 WBC (Bld)9.0 %Normal.[facility] Comment on above:Performed By: #### CBC, CRP, BNP, ESR ####[place] [address] USANeutrophils (Bld) [#/Vol]2.3 10*3/uLNormal1.8-7.7The Formerly [facility] Health Physician GroupComment on above:Performed By: #### CBC, CRP, BNP, ESR ####[place] [address] USANeutrophils/100 WBC (Bld)49.6 %Normal.The Formerly [facility] Health Physician GroupComment on above:Performed By: #### CBC, CRP, BNP, ESR ####[place] [address] USANRBC% 0.1 /100{WBC}Normal0-0.5The Formerly [facility] Health Physician GroupComment on above:Performed By: #### CBC, CRP, BNP, ESR ####[place] [address] USAPlatelet mean volume (Bld) [Entitic vol]7.7 fLNormal 6.6-10.1The Formerly [facility] Physician GroupComment on above:Performed By: #### CBC, CRP, BNP, ESR ####[place] [address] USAPlatelets (Bld) [#/Vol]207 10*3/eMEqarbq924-827Kdc Formerly [facility] Health Physician GroupComment on above:Performed By: #### CBC, CRP, BNP, ESR ####[address] [address] USARBC (Bld) [#/Vol]2.73 10*6/uLLow3.90-5.60The Formerly [facility] Health Physician GroupComment on above:Performed By: #### CBC, CRP, BNP, ESR ####[address] [address] USAWBC (Bld) [#/Vol]4.7 10*3/uLNormal4.1-10.5The Formerly [facility] Physician GroupComment on above:Performed By: #### CBC, CRP, BNP, ESR ####[address] [address] [place] Eosinophils Auto (Bld) [#/Vol]Ordered By: Sandip Bunting on 05-14-2024 Eosinophils (Bld) [#/Vol]Automated eosinophil countHigh0.0-0.45[facility] HospitalEosinophils/100 WBC Auto (Bld)Ordered By: Sandip Bunting on 09-06-9473Maiocelvboi/100 WBC (Bld)Automated eosinophil %.[facility] HospitalErythrocyte Sedimentation Rateon 87-28-2552MRX (Bld) [Velocity]59 mm/hHigh0-19The Formerly [facility] Physician GroupComment on above:Result Comment: PERFORMED BY:[address] [place], [place] [phone] MEDICAL DIRECTORJAJA CATES M.D. Performed By: #### CBC, CRP, BNP, ESR ####[address] [address] USAErythrocyte distribution width Auto (RBC) [Ratio]Ordered By: Sandip Bunting on 45-56-4419Ehckyluoovo distribution width (RBC) [Ratio]Erythrocyte distribution width [Ratio] by Automated countHigh 12.0-14.8[facility] HospitalErythrocyte sedimentation rate by Photometric methodOrdered By: Sandip Bunting on 00-42-9690YIN Photometric method (Bld) [Velocity]Erythrocyte sedimentation rate by Photometric methodHigh0-19 [facility] HospitalHematocrit Auto (Bld) [Volume fraction]Ordered By: Sandip Bunting on 92-35-8752Sxetocjzxz (Bld) [Volume fraction]Hematocrit [Volume Fraction] of Blood by Automated eciirWtm90.8-50.0[facility] HospitalHemoglobin [Mass/volume] in BloodOrdered By: Sandip Bunting on 53-19-6969Gusizlhsve (Bld) [Mass/Vol]Hemoglobin [Mass/volume] in BloodLow 13.0-17.0[facility] HospitalLeukocytes [#/volume] corrected for nucleated erythrocytes in Blood by Automated counOrdered By: Sandip Bunting on 30-91-6619WNF corrected for nucl RBC Auto (Bld) [#/Vol]Leukocytes [#/volume] corrected for nucleated erythrocytes in Blood by Automated coun4.1-10.5FMartin Memorial HospitalLymphocytes Auto (Bld) [#/Vol]Ordered By: Sandip Bunting on 99-19-8111Hnvtifzjlkq (Bld) [#/Vol]Lymphocytes [#/volume] in Blood by Automated count1.00-4.8[facility] HospitalLymphocytes/100 WBC Auto (Bld)Ordered By: Sandip Bunting on 60-78-8145Xmfamvzzbpa/100 WBC (Bld) Lymphocytes/100 leukocytes in Blood by Automated count.[facility] MemorialH Auto (RBC) [Entitic mass]Ordered By: Sandip Bunting on 35-86-2020XTE (RBC) [Entitic mass]MCH [Entitic mass] by Automated count27.5-35.2 [facility] HospitalMCHC Auto (RBC) [Mass/Vol]Ordered By: Sandip Bunting on 43-27-6278OHSP (RBC) [Mass/Vol]MCHC [Mass/volume] by Automated count 32.5-35.6FMartin Memorial HospitalMCV Auto (RBC) [Entitic vol]Ordered By: Sandip Bunting on 98-67-0077OHK (RBC) [Entitic vol]MCV [Entitic volume] by Automated count83.5-101[facility] HospitalMonocytes Auto (Bld) [#/Vol]Ordered By: Sandip Bunting on 96-97-5694Qhwybqigh (Bld) [#/Vol]Automated blood monocyte count0.0-0.8[facility] HospitalMonocytes/100 WBC Auto (Bld)Ordered By: Sandip Bunting on 61-52-5545Rdtxcyrym/100 WBC (Bld) Automated monocyte %.[facility] HospitalNatriuretic peptide B [Mass/Vol]Ordered By: Sandip Bunting on 05-62-1479Lcfibehcejo peptide B (Bld) [Mass/Vol]BNP ser/plasHigh5-100[facility] HospitalNeutrophils Auto (Bld) [#/Vol]Ordered By: Sadnip Bunting on 71-57-2336Tvfemjlwpea (Bld) [#/Vol] Neutrophils [#/volume] in Blood by Automated count1.8-7.7FMartin Memorial HospitalNeutrophils/100 WBC Auto (Bld)Ordered By: Sandip Bunting on 66-53-0988Dggpzqgabab/100 WBC (Bld)Automated neutrophil %.[facility] HospitalNucleated erythrocytes [Presence] in Blood by Automated count Ordered By: Sandip Bunting on 73-19-6472Egiolhvbg RBC Auto Ql (Bld)Nucleated erythrocytes [Presence] in Blood by Automated count0-0.5FMartin Memorial HospitalPlatelet mean volume Auto (Bld) [Entitic vol]Ordered By: Sandip Bunting on 19-66-8057Rrmejmzg mean volume (Bld) [Entitic vol]Platelet mean volume [Entitic volume] in Blood by Automated count6.6-10.1FMartin Memorial HospitalPlatelets Auto (Bld) [#/Vol]Ordered By: Sandip Bunting on 29-38-6890Iqttwdpap (Bld) [#/Vol]Platelets [#/volume] in Blood by Automated ihwxd505-896HrzsajvxuOhiohealth O'Bleness HospitalRBC Auto (Bld) [#/Vol]Ordered By: Sandip Bunting on 68-78-0602QCQ (Bld) [#/Vol]Erythrocytes [#/volume] in Blood by Automated countLow3.90-5.60[facility] HospitalWBC Auto (Bld) [#/Vol]Ordered By: Sandip Bunting on 01-11-4208LJP (Bld) [#/Vol]Leukocytes [#/volume] in Blood by Automated count4.1-10.5FMartin Memorial Hospital B-Type Natriuretic Peptideon 02-26-8262Uwdyawzgdat peptide B (Bld) [Mass/Vol] 356.0 pg/mLHigh5-100The Formerly [facility] Physician GroupComment on above:Result Comment: PERFORMED BY:[place] [address] [place], [place] [phone] MEDICAL DIRECTORJAJA CATES M.D. Performed By: #### ESR, CRP, BNP, CBC ####[place] [id number] [place] [address] USABasophils Auto (Bld) [#/Vol]Ordered By: Sandip Bunting on 82-38-3047Zlijropnk (Bld) [#/Vol]Automated basophil count0.0-0.2 [facility] HospitalBasophils/100 WBC Auto (Bld)Ordered By: Sandip Bunting on 59-90-3836Zyygdhqlb/100 WBC (Bld)Automated basophil %.[facility] HospitalC reactive protein [Mass/volume] in Serum or Plasma Ordered By: Sandip Bunting on 16-37-3236DBH [Mass/Vol]C reactive protein [Mass/volume] in Serum or PlasmaHigh0.0-0.5FMartin Memorial HospitalC- Reactive Proteinon 64-18-5277L-Reactive Protein5.8 mg/dLHigh0.0-0.5The Formerly [facility] Physician GroupComment on above:Result Comment: PERFORMED BY:[place] [address] [address] [place], [place] [phone] MEDICAL DIRECTORJAJA CATES M.D.Performed By: #### ESR, CRP, BNP, CBC ####[address] [address] [facility] Complete Blood Count Auto Diffon 38-49-0310Zvnoqrzlp (Bld) [#/Vol]0.1 10*3/uL Normal0.0-0.2The Formerly [facility] Health Physician GroupComment on above:Performed By: #### ESR, CRP, BNP, CBC ####[place] [address] USABasophils/100 WBC (Bld)1.3 %Normal.[facility] Comment on above:Performed By: #### ESR, CRP, BNP, CBC ####[place] [address] USAEosinophils (Bld) [#/Vol]0.4 10*3/uLNormal0.0-0.45The Formerly [facility] Physician GroupComment on above:Performed By: #### ESR, CRP, BNP, CBC ####[place] [address] USAEosinophils/100 WBC (Bld)7.9 %Normal.The Formerly [facility] Physician GroupComment on above:Performed By: #### ESR, CRP, BNP, CBC ####[address] Erythrocyte distribution width (RBC) [Ratio]17.2 %High12.0-14.8The Formerly [facility] Health Physician GroupComment on above:Performed By: #### ESR, CRP, BNP, CBC ####[place] [address] [place] Hematocrit (Bld) [Volume fraction]26.9 %Low38.8-50.0The Formerly [facility] Physician GroupComment on above:Performed By: #### ESR, CRP, BNP, CBC ####[place] [address] USAHemoglobin (Bld) [Mass/Vol]8.8 g/dLLow13.0-17.0The Formerly [facility] Physician GroupComment on above: Performed By: #### ESR, CRP, BNP, CBC ####[place] [address] USALymphocytes (Bld) [#/Vol]1.3 10*3/uLNormal 1.00-4.8The Formerly [facility] Physician GroupComment on above:Performed By: #### ESR, CRP, BNP, CBC ####[place] [address] USALymphocytes/100 WBC (Bld)29.0 %Normal.[facility] Comment on above:Performed By: #### ESR, CRP, BNP, CBC ####[place] [address] [facility] (RBC) [Entitic mass]30.0 bwFflctw64.5-35.2The Formerly [facility] Physician GroupComment on above:Performed By: #### ESR, CRP, BNP, CBC ####[place] [address] [facility] (RBC) [Entitic vol]91.3 cUWxsfus40.5-101The Formerly [facility] Physician GroupComment on above:Performed By: #### ESR, CRP, BNP, CBC ####[place] [address] USAMean Corpuscular HGB Conc32.9 g/yPFvlzsq64.5-35.6The Formerly [facility] Physician GroupComment on above:Performed By: #### ESR, CRP, BNP, CBC ####[place] [address] USAMonocytes (Bld) [#/Vol]0.3 10*3/uL Normal0.0-0.8The Formerly [facility] Health Physician GroupComment on above:Performed By: #### ESR, CRP, BNP, CBC ####[place] [address] USAMonocytes/100 WBC (Bld)6.4 %Normal.[facility] Comment on above:Performed By: #### ESR, CRP, BNP, CBC ####[place] [address] USANeutrophils (Bld) [#/Vol]2.6 10*3/uLNormal1.8-7.7The Formerly [facility] Physician GroupComment on above:Performed By: #### ESR, CRP, BNP, CBC ####[place] [address] USANeutrophils/100 WBC (Bld)55.4 %Normal.The Formerly [facility] Health Physician GroupComment on above:Performed By: #### ESR, CRP, BNP, CBC ####[place] [address] USANRBC% 0.1 /100{WBC}Normal0-0.5The Formerly [facility] Health Physician GroupComment on above:Performed By: #### ESR, CRP, BNP, CBC ####[place] [address] USAPlatelet mean volume (Bld) [Entitic vol]7.6 fLNormal 6.6-10.1The Formerly [facility] Health Physician GroupComment on above:Performed By: #### ESR, CRP, BNP, CBC ####[place] [address] USAPlatelets (Bld) [#/Vol]192 10*3/dXKwnxhd324-246Ubo Formerly [facility] Health Physician GroupComment on above:Performed By: #### ESR, CRP, BNP, CBC ####[place] [address] USARBC (Bld) [#/Vol]2.95 10*6/uLLow3.90-5.60The Formerly [facility] Physician GroupComment on above:Performed By: #### ESR, CRP, BNP, CBC ####[place] [address] USAWBC (Bld) [#/Vol]4.7 10*3/uLNormal4.1-10.5The Formerly [facility] Physician GroupComment on above:Performed By: #### ESR, CRP, BNP, CBC ####[place] [address] [place] Eosinophils Auto (Bld) [#/Vol]Ordered By: Sandip Aguirre on 05-07-2024 Eosinophils (Bld) [#/Vol]Automated eosinophil count0.0-0.45[facility] HospitalEosinophils/100 WBC Auto (Bld)Ordered By: Sandip Aguirre on 18-19-9540Qdwuzhharno/100 WBC (Bld)Automated eosinophil %.[facility] HospitalErythrocyte Sedimentation Rateon 72-41-5184EBQ (Bld) [Velocity]65 mm/hHigh0-19The Formerly [facility] Physician GroupComment on above:Result Comment: PERFORMED BY:[facility] [place], [place] [phone] MEDICAL DIRECTORJAJA CATES M.D. Performed By: #### ESR, CRP, BNP, CBC ####[facility] [place] [address] USAErythrocyte distribution width Auto (RBC) [Ratio]Ordered By: Sandip Bunting on 51-87-9351Ohkidojzkwv distribution width (RBC) [Ratio]Erythrocyte distribution width [Ratio] by Automated countHigh 12.0-14.8[facility] HospitalErythrocyte sedimentation rate by Photometric methodOrdered By: Sandip Bunting on 08-69-8035ZJF Photometric method (Bld) [Velocity]Erythrocyte sedimentation rate by Photometric methodHigh0-19 [facility] HospitalHematocrit Auto (Bld) [Volume fraction]Ordered By: Sandip Bunting on 58-94-6988Wndivrlzzs (Bld) [Volume fraction]Hematocrit [Volume Fraction] of Blood by Automated ktydeSgr38.8-50.0[facility] HospitalHemoglobin [Mass/volume] in BloodOrdered By: Sandip Bunting on 42-02-4184Cvpsjmaszn (Bld) [Mass/Vol]Hemoglobin [Mass/volume] in BloodLow 13.0-17.0[facility] HospitalLeukocytes [#/volume] corrected for nucleated erythrocytes in Blood by Automated counOrdered By: Sandip Bunting on 78-02-6575TXC corrected for nucl RBC Auto (Bld) [#/Vol]Leukocytes [#/volume] corrected for nucleated erythrocytes in Blood by Automated coun4.1-10.5FMartin Memorial HospitalLymphocytes Auto (Bld) [#/Vol]Ordered By: Sandip Bunting on 47-59-3540Uxbuhpvibxv (Bld) [#/Vol]Lymphocytes [#/volume] in Blood by Automated count1.00-4.8[facility] HospitalLymphocytes/100 WBC Auto (Bld)Ordered By: Sandip Bunting on 18-79-3116Sjbjjrctgfd/100 WBC (Bld) Lymphocytes/100 leukocytes in Blood by Automated count.[facility] MemorialH Auto (RBC) [Entitic mass]Ordered By: Sandip Bunting on 83-18-9663PFZ (RBC) [Entitic mass]MCH [Entitic mass] by Automated count27.5-35.2 [facility] HospitalMCHC Auto (RBC) [Mass/Vol]Ordered By: Sandip Bunting on 91-19-7164HPNO (RBC) [Mass/Vol]MCHC [Mass/volume] by Automated count 32.5-35.6FMartin Memorial HospitalMCV Auto (RBC) [Entitic vol]Ordered By: Sandip Bunting on 24-00-7786BGO (RBC) [Entitic vol]MCV [Entitic volume] by Automated count83.5-101[facility] HospitalMonocytes Auto (Bld) [#/Vol]Ordered By: Sandip Bunting on 65-90-4666Tckwrxaki (Bld) [#/Vol]Automated blood monocyte count0.0-0.8[facility] HospitalMonocytes/100 WBC Auto (Bld)Ordered By: Sandip Bunting on 80-09-3133Ydtaibklj/100 WBC (Bld) Automated monocyte %.[facility]len[facility] HospitalNatriuretic peptide B [Mass/Vol]Ordered By: Sandip Bunting on 87-11-0631Ppoannbwyok peptide B (Bld) [Mass/Vol]BNP ser/plasHigh5-100[facility] HospitalNeutrophils Auto (Bld) [#/Vol]Ordered By: Sandip Bunting on 10-24-2914Qcdtiqbjump (Bld) [#/Vol] Neutrophils [#/volume] in Blood by Automated count1.8-7.7FMartin Memorial HospitalNeutrophils/100 WBC Auto (Bld)Ordered By: Sandip Bunting on 92-93-3983Mqhntaomcow/100 WBC (Bld)Automated neutrophil %.[facility] HospitalNucleated erythrocytes [Presence] in Blood by Automated count Ordered By: Sandip Bunting on 82-46-4551Uhaghjfje RBC Auto Ql (Bld)Nucleated erythrocytes [Presence] in Blood by Automated count0-0.5FMartin Memorial HospitalPlatelet mean volume Auto (Bld) [Entitic vol]Ordered By: Sandip Bunting on 99-26-3072Flarleaz mean volume (Bld) [Entitic vol]Platelet mean volume [Entitic volume] in Blood by Automated count6.6-10.1FMartin Memorial HospitalPlatelets Auto (Bld) [#/Vol]Ordered By: Sandip Bunting on 76-04-4932Deoctkqzk (Bld) [#/Vol]Platelets [#/volume] in Blood by Automated urleg806-095ZithpjqpkOhiohealth O'Bleness HospitalRBC Auto (Bld) [#/Vol]Ordered By: Sandip Bunting on 40-71-0680LIM (Bld) [#/Vol]Erythrocytes [#/volume] in Blood by Automated countLow3.90-5.60[facility] HospitalWBC Auto (Bld) [#/Vol]Ordered By: Sandip Bunting on 75-17-0803JGD (Bld) [#/Vol]Leukocytes [#/volume] in Blood by Automated count4.1-10.5FMartin Memorial Hospital B-Type Natriuretic Peptideon 86-51-3974Vlfdeaczlpg peptide B (Bld) [Mass/Vol] 269.0 pg/mLHigh5-100The Formerly [facility] Physician GroupComment on above:Result Comment: PERFORMED BY:[facility] [place], [place] [phone] MEDICAL DIRECTORJAJA CATES M.D. Performed By: #### CBC, BNP, ESR, CRP ####[place] [address] [place] [address] USABasophils Auto (Bld) [#/Vol]Ordered By: Sandip Bunting on 94-32-8975Xlfeierfi (Bld) [#/Vol]Automated basophil count0.0-0.2 [facility] HospitalBasophils/100 WBC Auto (Bld)Ordered By: Sandip Bunting on 78-77-3412Ttnfatrou/100 WBC (Bld)Automated basophil %.[facility] HospitalC reactive protein [Mass/volume] in Serum or Plasma Ordered By: Sandip Aguirre on 48-30-5326VDB [Mass/Vol]C reactive protein [Mass/volume] in Serum or PlasmaHigh0.0-0.5FMartin Memorial HospitalC- Reactive Proteinon 83-33-9772J-Reactive Protein4.6 mg/dLHigh0.0-0.5The Formerly [facility] Physician GroupComment on above:Result Comment: PERFORMED BY:[address] [place], [place] [phone] MEDICAL DIRECTORJAJA CATES M.D.Performed By: #### CBC, BNP, ESR, CRP ####[place] [id number] [facility] Complete Blood Count Auto Diffon 74-87-6538Nxrvlsxpp (Bld) [#/Vol]0.1 10*3/uL Normal0.0-0.2The Formerly [facility] Physician GroupComment on above:Performed By: #### CBC, BNP, ESR, CRP ####[address] [address] USABasophils/100 WBC (Bld)1.3 %Normal.[facility] Comment on above:Performed By: #### CBC, BNP, ESR, CRP ####[address] [address] USAEosinophils (Bld) [#/Vol]0.4 10*3/uLNormal0.0-0.45The Formerly [facility] Physician GroupComment on above:Performed By: #### CBC, BNP, ESR, CRP ####[place] [id number] USAEosinophils/100 WBC (Bld)7.5 %Normal.The Formerly [facility] Physician GroupComment on above:Performed By: #### CBC, BNP, ESR, CRP ####[place] [address] [facility] Erythrocyte distribution width (RBC) [Ratio]17.6 %High12.0-14.8The Formerly [facility] Health Physician GroupComment on above:Performed By: #### CBC, BNP, ESR, CRP ####[place] [address] [place] Hematocrit (Bld) [Volume fraction]26.4 %Low38.8-50.0The Formerly [facility] Physician GroupComment on above:Performed By: #### CBC, BNP, ESR, CRP ####[place] [address] USAHemoglobin (Bld) [Mass/Vol]8.8 g/dLLow13.0-17.0The Formerly [facility] Physician GroupComment on above: Performed By: #### CBC, BNP, ESR, CRP ####[place] [address] USALymphocytes (Bld) [#/Vol]1.9 10*3/uLNormal 1.00-4.8The Formerly [facility] Physician GroupComment on above:Performed By: #### CBC, BNP, ESR, CRP ####[place] [address] USALymphocytes/100 WBC (Bld)35.3 %Normal.[facility] Comment on above:Performed By: #### CBC, BNP, ESR, CRP ####[address]M[facility] (RBC) [Entitic mass]30.7 evEpfuul31.5-35.2The Formerly [facility] Physician GroupComment on above:Performed By: #### CBC, BNP, ESR, CRP ####[place] [address] USAMCV (RBC) [Entitic vol]92.5 kXFtlqml83.5-101The Formerly [facility] Physician GroupComment on above:Performed By: #### CBC, BNP, ESR, CRP ####[place] [address] USAMean Corpuscular HGB Conc33.1 g/bGBctiul04.5-35.6The Formerly [facility] Physician GroupComment on above:Performed By: #### CBC, BNP, ESR, CRP ####[place] [address] USAMonocytes (Bld) [#/Vol]0.4 10*3/uL Normal0.0-0.8The Formerly [facility] Physician GroupComment on above:Performed By: #### CBC, BNP, ESR, CRP ####[place] [address] USAMonocytes/100 WBC (Bld)7.1 %Normal.[facility] Comment on above:Performed By: #### CBC, BNP, ESR, CRP ####[place] [address] USANeutrophils (Bld) [#/Vol]2.6 10*3/uLNormal1.8-7.7The Formerly [facility] Physician GroupComment on above:Performed By: #### CBC, BNP, ESR, CRP ####[place] [address] USANeutrophils/100 WBC (Bld)48.8 %Normal.The Formerly [facility] Physician GroupComment on above:Performed By: #### CBC, BNP, ESR, CRP ####[place] [address] USANRBC% 0.1 /100{WBC}Normal0-0.5The Formerly [facility] Physician GroupComment on above:Performed By: #### CBC, BNP, ESR, CRP ####[place] [address] USAPlatelet mean volume (Bld) [Entitic vol]7.3 fLNormal 6.6-10.1The Formerly [facility] Physician GroupComment on above:Performed By: #### CBC, BNP, ESR, CRP ####[place] [address] USAPlatelets (Bld) [#/Vol]238 10*3/mORrgbng024-075Fiw Formerly [facility] Physician GroupComment on above:Performed By: #### CBC, BNP, ESR, CRP ####[place] [id number] [place] [address] USARBC (Bld) [#/Vol]2.85 10*6/uLLow3.90-5.60The Formerly [facility] Physician GroupComment on above:Performed By: #### CBC, BNP, ESR, CRP ####[address] [address] USAWBC (Bld) [#/Vol]5.4 10*3/uLNormal4.1-10.5The Formerly [facility] Physician GroupComment on above:Performed By: #### CBC, BNP, ESR, CRP ####[address] [address] [place] Eosinophils Auto (Bld) [#/Vol]Ordered By: Sandip Bunting on 04-30-2024 Eosinophils (Bld) [#/Vol]Automated eosinophil count0.0-0.45[facility] HospitalEosinophils/100 WBC Auto (Bld)Ordered By: Sandip Bunting on 21-63-2620Rlzrgmwccyh/100 WBC (Bld)Automated eosinophil %.[facility] HospitalErythrocyte Sedimentation Rateon 58-29-1479NUO (Bld) [Velocity]57 mm/hHigh0-19The Formerly [facility] Physician GroupComment on above:Result Comment: PERFORMED BY:[address] [place], [place] [phone] MEDICAL DIRECTORJAJA CATES M.D. Performed By: #### CBC, BNP, ESR, CRP ####[address] [address] USAErythrocyte distribution width Auto (RBC) [Ratio]Ordered By: Sandip Bunting on 32-50-5993Lgouekpmfak distribution width (RBC) [Ratio]Erythrocyte distribution width [Ratio] by Automated countHigh 12.0-14.8[facility] HospitalErythrocyte sedimentation rate by Photometric methodOrdered By: Sandip Bunting on 38-37-5020MTA Photometric method (Bld) [Velocity]Erythrocyte sedimentation rate by Photometric methodHigh0-19 [facility] HospitalHematocrit Auto (Bld) [Volume fraction]Ordered By: Sandip Bunting on 20-60-9192Fbdyalqvuh (Bld) [Volume fraction]Hematocrit [Volume Fraction] of Blood by Automated oqakyDks83.8-50.0[facility] HospitalHemoglobin [Mass/volume] in BloodOrdered By: Sandip Bunting on 19-49-7677Gomgtlkfes (Bld) [Mass/Vol]Hemoglobin [Mass/volume] in BloodLow 13.0-17.0[facility] HospitalLeukocytes [#/volume] corrected for nucleated erythrocytes in Blood by Automated counOrdered By: Sandip Bunting on 63-31-8721SGB corrected for nucl RBC Auto (Bld) [#/Vol]Leukocytes [#/volume] corrected for nucleated erythrocytes in Blood by Automated coun4.1-10.5FMartin Memorial HospitalLymphocytes Auto (Bld) [#/Vol]Ordered By: Sandip Bunting on 93-26-9630Kqufiekuwxn (Bld) [#/Vol]Lymphocytes [#/volume] in Blood by Automated count1.00-4.8[facility] HospitalLymphocytes/100 WBC Auto (Bld)Ordered By: Sandip Bunting on 89-18-6263Sbezhegykim/100 WBC (Bld) Lymphocytes/100 leukocytes in Blood by Automated count.[facility]H Auto (RBC) [Entitic mass]Ordered By: Sandip Bunting on 26-79-6464KMP (RBC) [Entitic mass]MCH [Entitic mass] by Automated count27.5-35.2 [facility] HospitalMCHC Auto (RBC) [Mass/Vol]Ordered By: Sandip Bunting on 80-42-3149HAHE (RBC) [Mass/Vol]MCHC [Mass/volume] by Automated count 32.5-35.6FMartin Memorial HospitalMCV Auto (RBC) [Entitic vol]Ordered By: Sandip Bunting on 47-97-0082SPT (RBC) [Entitic vol]MCV [Entitic volume] by Automated count83.5-101[facility] HospitalMonocytes Auto (Bld) [#/Vol]Ordered By: Sandip Bunting on 10-97-1272Zbgixipoi (Bld) [#/Vol]Automated blood monocyte count0.0-0.8[facility] HospitalMonocytes/100 WBC Auto (Bld)Ordered By: Sandip Bunting on 08-14-2178Oklfdkgus/100 WBC (Bld) Automated monocyte %.[facility] HospitalNatriuretic peptide B [Mass/Vol]Ordered By: Sandip Bunting on 39-62-6423Vtxhagwcljz peptide B (Bld) [Mass/Vol]BNP ser/plasHigh5-100[facility] HospitalNeutrophils Auto (Bld) [#/Vol]Ordered By: Sandip Bunting on 31-25-0753Yltvjyhawbd (Bld) [#/Vol] Neutrophils [#/volume] in Blood by Automated count1.8-7.7FMartin Memorial HospitalNeutrophils/100 WBC Auto (Bld)Ordered By: Sandip Bunting on 93-37-3459Dmxciprrpvb/100 WBC (Bld)Automated neutrophil %.[facility] HospitalNucleated erythrocytes [Presence] in Blood by Automated count Ordered By: Sandip Bunting on 39-21-8171Zoejkofoh RBC Auto Ql (Bld)Nucleated erythrocytes [Presence] in Blood by Automated count0-0.5FMartin Memorial HospitalPlatelet mean volume Auto (Bld) [Entitic vol]Ordered By: Sandip Bunting on 87-08-5819Gvfvljbo mean volume (Bld) [Entitic vol]Platelet mean volume [Entitic volume] in Blood by Automated count6.6-10.1FMartin Memorial HospitalPlatelets Auto (Bld) [#/Vol]Ordered By: Sandip Bunting on 49-82-5316Adogllbup (Bld) [#/Vol]Platelets [#/volume] in Blood by Automated sovkh339-678AjpmzqfhuOhiohealth O'Bleness HospitalRBC Auto (Bld) [#/Vol]Ordered By: Sandip Bunting on 79-24-4607TQP (Bld) [#/Vol]Erythrocytes [#/volume] in Blood by Automated countLow3.90-5.60[facility] HospitalWBC Auto (Bld) [#/Vol]Ordered By: Sandip Bunting on 35-33-2736WWE (Bld) [#/Vol]Leukocytes [#/volume] in Blood by Automated count4.1-10.5FMartin Memorial Hospital B-Type Natriuretic Peptideon 77-40-5580Bldhdpukaku peptide B (Bld) [Mass/Vol] 216.0 pg/mLHigh5-100The Formerly [facility] Health Physician GroupComment on above:Result Comment: PERFORMED BY:[place] [address] [place], [place] [phone] MEDICAL DIRECTORJAJA CATES M.D. Performed By: #### BNP, CRP, CBC, ESR ####[facility] [address] [place] [address] USABasophils Auto (Bld) [#/Vol]Ordered By: Sandip Bunting on 50-15-5872Bmmshekld (Bld) [#/Vol]Automated basophil count0.0-0.2 [facility] HospitalBasophils/100 WBC Auto (Bld)Ordered By: Sandip Bunting on 39-77-1354Sngqpbsvl/100 WBC (Bld)Automated basophil %.[facility] HospitalC reactive protein [Mass/volume] in Serum or Plasma Ordered By: Sandip Bunting on 58-57-5443AFF [Mass/Vol]C reactive protein [Mass/volume] in Serum or PlasmaHigh0.0-0.5FMartin Memorial HospitalC- Reactive Proteinon 84-18-3280K-Reactive Protein6.7 mg/dLHigh0.0-0.5The Formerly [facility] Physician GroupComment on above:Result Comment: PERFORMED BY:[place] [address] [place], [place] [phone] MEDICAL DIRECTORJAJA CATES M.D.Performed By: #### BNP, CRP, CBC, ESR ####[facility] [address] [place] [address] [facility] Complete Blood Count Auto Diffon 09-30-9859Ojyeonxxh (Bld) [#/Vol]0.1 10*3/uL Normal0.0-0.2The Formerly [facility] Health Physician GroupComment on above:Performed By: #### BNP, CRP, CBC, ESR ####[place] [address] USABasophils/100 WBC (Bld)0.9 %Normal.[facility] Comment on above:Performed By: #### BNP, CRP, CBC, ESR ####[place] [address] USAEosinophils (Bld) [#/Vol]0.5 10*3/uLHigh0.0-0.45The Formerly [facility] Health Physician GroupComment on above:Performed By: #### BNP, CRP, CBC, ESR ####[place] [address] USAEosinophils/100 WBC (Bld)6.4 %Normal.The Former[facility] Health Physician GroupComment on above:Performed By: #### BNP, CRP, CBC, ESR ####[address] Erythrocyte distribution width (RBC) [Ratio]17.0 %High12.0-14.8The Formerly [facility] Health Physician GroupComment on above:Performed By: #### BNP, CRP, CBC, ESR ####[place] [address] [place] Hematocrit (Bld) [Volume fraction]26.9 %Low38.8-50.0The Formerly [facility] Health Physician GroupComment on above:Performed By: #### BNP, CRP, CBC, ESR ####[place] [address] USAHemoglobin (Bld) [Mass/Vol]9.0 g/dLLow13.0-17.0The Formerly [facility] Health Physician GroupComment on above: Performed By: #### BNP, CRP, CBC, ESR ####[place] [address] USALymphocytes (Bld) [#/Vol]2.1 10*3/uLNormal 1.00-4.8The Formerly [facility] Health Physician GroupComment on above:Performed By: #### BNP, CRP, CBC, ESR ####[place] [id number] USALymphocytes/100 WBC (Bld)29.5 %Normal.[facility] Comment on above:Performed By: #### BNP, CRP, CBC, ESR ####[place] [id number] [facility] (RBC) [Entitic mass]31.4 vtPgniip76.5-35.2The Formerly [facility] Physician GroupComment on above:Performed By: #### BNP, CRP, CBC, ESR ####[place] [id number] [facility] (RBC) [Entitic vol]93.7 pYRsrivy21.5-101The Formerly [facility] Physician GroupComment on above:Performed By: #### BNP, CRP, CBC, ESR ####[place] [address] USAMean Corpuscular HGB Conc33.5 g/vNEbsduw14.5-35.6The Formerly [facility] Physician GroupComment on above:Performed By: #### BNP, CRP, CBC, ESR ####[place] [address] USAMonocytes (Bld) [#/Vol]0.7 10*3/uL Normal0.0-0.8The Formerly [facility] Health Physician GroupComment on above:Performed By: #### BNP, CRP, CBC, ESR ####[place] [id number] USAMonocytes/100 WBC (Bld)9.2 %Normal.[facility] Comment on above:Performed By: #### BNP, CRP, CBC, ESR ####[place] [id number] USANeutrophils (Bld) [#/Vol]3.9 10*3/uLNormal1.8-7.7The Formerly [facility] Physician GroupComment on above:Performed By: #### BNP, CRP, CBC, ESR ####[place] [address] USANeutrophils/100 WBC (Bld)54.0 %Normal.The Former[facility] Physician GroupComment on above:Performed By: #### BNP, CRP, CBC, ESR ####[place] [address] USANRBC% 0.1 /100{WBC}Normal0-0.5The Formerly [facility] Health Physician GroupComment on above:Performed By: #### BNP, CRP, CBC, ESR ####[place] [address] USAPlatelet mean volume (Bld) [Entitic vol]7.8 fLNormal 6.6-10.1The Formerly [facility] Physician GroupComment on above:Performed By: #### BNP, CRP, CBC, ESR ####[place] [address] USAPlatelets (Bld) [#/Vol]249 10*3/rTArwbff958-942Eie Formerly [facility] Health Physician GroupComment on above:Performed By: #### BNP, CRP, CBC, ESR ####[place] [address] USARBC (Bld) [#/Vol]2.87 10*6/uLLow3.90-5.60The Former[facility] Physician GroupComment on above:Performed By: #### BNP, CRP, CBC, ESR ####[place] [address] USAWBC (Bld) [#/Vol]7.2 10*3/uLNormal4.1-10.5The Formerly [facility] Physician GroupComment on above:Performed By: #### BNP, CRP, CBC, ESR ####[place] [address] [place] Eosinophils Auto (Bld) [#/Vol]Ordered By: Sandip Aguirre on 04-23-2024 Eosinophils (Bld) [#/Vol]Automated eosinophil countHigh0.0-0.45[facility] HospitalEosinophils/100 WBC Auto (Bld)Ordered By: Sandip Bunting on 62-19-2669Evhxftywmgc/100 WBC (Bld)Automated eosinophil %.[facility] HospitalErythrocyte Sedimentation Rateon 13-33-4051HFW (Bld) [Velocity]95 mm/hHigh0-19The Formerly [facility] Physician GroupComment on above:Result Comment: PERFORMED BY:[facility] [place], [place] [phone] MEDICAL DIRECTORJAJA CATES M.D. Performed By: #### BNP, CRP, CBC, ESR ####[facility] [place] [address] [facility] CENTERErythrocyte distribution width Auto (RBC) [Ratio]Ordered By: Sandip Bunting on 80-03-7449Twwbygyufom distribution width (RBC) [Ratio]Erythrocyte distribution width [Ratio] by Automated countHigh 12.0-14.8[facility] HospitalErythrocyte sedimentation rate by Photometric methodOrdered By: Sandip Bunting on 54-97-4450JNU Photometric method (Bld) [Velocity]Erythrocyte sedimentation rate by Photometric methodHigh0-19 [facility] HospitalHematocrit Auto (Bld) [Volume fraction]Ordered By: Sandip Bunting on 77-10-6618Nzrkyddgmo (Bld) [Volume fraction]Hematocrit [Volume Fraction] of Blood by Automated brmurWli42.8-50.0[facility] HospitalHemoglobin [Mass/volume] in BloodOrdered By: Sandip Bunting on 91-97-8224Vepeqmyfvc (Bld) [Mass/Vol]Hemoglobin [Mass/volume] in BloodLow 13.0-17.0[facility] HospitalLeukocytes [#/volume] corrected for nucleated erythrocytes in Blood by Automated counOrdered By: Sandip Bunting on 24-29-5996JVW corrected for nucl RBC Auto (Bld) [#/Vol]Leukocytes [#/volume] corrected for nucleated erythrocytes in Blood by Automated coun4.1-10.5FMartin Memorial HospitalLymphocytes Auto (Bld) [#/Vol]Ordered By: Sandip Bunting on 34-94-4822Wtfkhuasees (Bld) [#/Vol]Lymphocytes [#/volume] in Blood by Automated count1.00-4.8[facility] HospitalLymphocytes/100 WBC Auto (Bld)Ordered By: Sandip Bunting on 57-86-6236Aleiizpypbz/100 WBC (Bld) Lymphocytes/100 leukocytes in Blood by Automated count.[facility] MemorialH Auto (RBC) [Entitic mass]Ordered By: Sandip Bunting on 24-58-4602ZWT (RBC) [Entitic mass]MCH [Entitic mass] by Automated count27.5-35.2 [facility] MemorialHC Auto (RBC) [Mass/Vol]Ordered By: Sandip Bunting on 50-50-5770FVTN (RBC) [Mass/Vol]MCHC [Mass/volume] by Automated count 32.5-35.6FMartin Memorial HospitalMCV Auto (RBC) [Entitic vol]Ordered By: Sandip Bunting on 88-77-6192SPT (RBC) [Entitic vol]MCV [Entitic volume] by Automated count83.5-101[facility] HospitalMonocytes Auto (Bld) [#/Vol]Ordered By: Sandip Bunting on 82-61-7164Wihazkxxo (Bld) [#/Vol]Automated blood monocyte count0.0-0.8[facility] HospitalMonocytes/100 WBC Auto (Bld)Ordered By: Sandip Bunting on 53-96-2109Dgbyzdelk/100 WBC (Bld) Automated monocyte %.[facility] HospitalNatriuretic peptide B [Mass/Vol]Ordered By: Sandip Bunting on 89-17-9597Tqfhcxutjis peptide B (Bld) [Mass/Vol]BNP ser/plasHigh5-100[facility] HospitalNeutrophils Auto (Bld) [#/Vol]Ordered By: Sandip Bunting on 70-71-9515Wjnzegpgvhq (Bld) [#/Vol] Neutrophils [#/volume] in Blood by Automated count1.8-7.7FMartin Memorial HospitalNeutrophils/100 WBC Auto (Bld)Ordered By: Sandip Bunting on 24-50-0665Wtsmuhxfghp/100 WBC (Bld)Automated neutrophil %.[facility] CenterNucleated erythrocytes [Presence] in Blood by Automated count Ordered By: Sandip Bunting on 40-09-4288Olakgtanw RBC Auto Ql (Bld)Nucleated erythrocytes [Presence] in Blood by Automated count0-0.5FMartin Memorial HospitalPlatelet mean volume Auto (Bld) [Entitic vol]Ordered By: Sandip Bunting on 43-41-0232Ufkvozlb mean volume (Bld) [Entitic vol]Platelet mean volume [Entitic volume] in Blood by Automated count6.6-10.1FMartin Memorial HospitalPlatelets Auto (Bld) [#/Vol]Ordered By: Sandip Bunting on 41-43-3084Tmenaddsk (Bld) [#/Vol]Platelets [#/volume] in Blood by Automated -691WvfrtijrlOhiohealth O'Bleness HospitalRBC Auto (Bld) [#/Vol]Ordered By: Sandip Bunting on 07-08-7452CWD (Bld) [#/Vol]Erythrocytes [#/volume] in Blood by Automated countLow3.90-5.60[facility] HospitalWBC Auto (Bld) [#/Vol]Ordered By: Sandip Bunting on 45-86-8226WEI (Bld) [#/Vol]Leukocytes [#/volume] in Blood by Automated count4.1-10.5FMartin Memorial Hospital .eGFRon 07-75-2084Odrmuunbd GFR57 mL/min/1.73m?Low>=60[facility]-Hyde Memorial HospitalComment on above:Result Comment: [facility] have implemented [...] Age = yearsPerformed By: #### MG #### [address] [address]o Metabolic Profileon 31-67-5198Larhu gap [Moles/Vol]8 mmol/LNormal4-12[facility]Hyde Memorial HospitalComment on above:Performed By: #### CD:[id number] #### [address] [address]Bmoonyq [Mass/Vol]8.6 mg/dLNormal8.5-10.3BFort Hamilton HospitalComment on above:Performed By: #### CD:[id number] #### [address] [address]Mqrrtmdg [Moles/Vol]96 mmol/CLcr29-943SawvzjdzdMccullough-Hyde Memorial HospitalComment on above:Performed By: #### CD:[id number] #### [address] [address]NP[address] [Moles/Vol]27 mmol/CWnyaaw73-85EgqifefbbMccullough-Hyde Memorial HospitalComment on above:Performed By: #### CD:[id number] #### [address] [address]Tolyqnpenq [Mass/Vol]1.25 mg/dLHigh0.61-1.24M[facility]-Hyde Memorial HospitalComment on above:Performed By: #### CD:[id number] #### [address] [address]Qxippif [Mass/Vol]83 mg/zQYijlse30-96GgffirunlMccullough-Hyde Memorial HospitalComment on above:Performed By: #### CD:[id number] #### [address] [address]Soqljbbuk [Moles/Vol]3.7 mmol/LNormal3.4-4.8BFort Hamilton HospitalComment on above:Performed By: #### CD:[id number] #### [address] [address]Rflbbe [Moles/Vol]131 mmol/RXlk140-977VgyxvaybaMccullough-Hyde Memorial HospitalComment on above:Performed By: #### CD:[id number] #### [address] [address]Gzyp nitrogen [Mass/Vol]19 mg/dLNormal8-26M[facility]-Hyde Memorial HospitalComment on above:Performed By: #### CD:[id number] #### [address] [address]Wyuc nitrogen/Creatinine [Mass ratio]15.2 mg/dqKjizjt17.0-20.0 [facility] Memorial HospitalComment on above:Performed By: #### CD:[id number] #### [address] [address]P Bldon 04-20-2024 Bld Final No growth at 5 days.NormalMccullough-Hyde Memorial HospitalComment on above: Performed By: #### BLDC ####[address] [address]Twcydouac By: #### MARISELA #### [address] [address]J Sterile BSon 04-20-2024 Sterile BS Final Light Growth of Pseudomonas aeruginosa isolated ORGANISM PA SUSCEPTIBILITY ORGANISM ID: 1 ANTIBIOTIC INTERPRETATION BELLA STATUS POS Pseudomonas aeruginosa Ceftazidime S 4 V Ciprofloxacin I 1 V Levofloxacin R 4 V Meropenem S 1 V Piperacillin/Tazobactam S 16 V SUSCEPTIBILITY ORGANISM ID: 1 ANTIBIOTIC INTERPRETATION BELLA STATUS POS Pseudomonas aeruginosa Cefepime S VNormalMccullough-Hyde Memorial HospitalComment on above:Performed By: #### :[id number] #### [address] [address]UHF w/ Diffon 64-28-3713Qobfgqpjeex distribution width (RBC) [Ratio]17.6 %High11.6-14.8BFort Hamilton HospitalComment on above: Performed By: #### CBC ####[address] [address]Xuugfrwnmd (Bld) [Volume fraction]27.2 %Low41.0-53.0 [facility]-Hyde Memorial HospitalComment on above:Performed By: #### CBC ####[address] [address]Splhsblhod (Bld) [Mass/Vol]9.1 g/dLLow13.5-17.5BFort Hamilton HospitalComment on above:Performed By: #### CBC ####[address] [address]NXN (RBC) [Entitic mass]31.1 cyLnurrr63.0-35.0M[facility]-Hy[facility] Memorial HospitalComment on above:Performed By: #### CBC ####[address] [address]VATZ03.5 %Mmsdhz82.0-37.0 [facility] Memorial HospitalComment on above:Performed By: #### CBC ####[address] [address]SIB (RBC) [Entitic vol]92.9 lSCojpvh77.0-100.0M[facility]-Hy[facility] Memorial HospitalComment on above:Performed By: #### CBC ####[address] [address]Ktyftqhh[address] x10*3/xiCNhgvcg208-300IopwncigkMccullough-Hyde Memorial HospitalComment on above:Performed By: #### CBC ####[address] [address]Fwudkhue mean volume (Bld) [Entitic vol]7.0 fL Normal6.7-10.6BFort Hamilton HospitalComment on above:Performed By: #### CBC ####[address] [address]EFI6.93 x10*6/mcLLow4.30-5.80[facility]-Hy[facility] Memorial HospitalComment on above:Performed By: #### CBC ####[address] [address]MCL2.0 x10*3/mcLNormal4.5-11.0M[facility]-Hyde Memorial HospitalComment on above:Performed By: #### CBC ####[address] [address]Zsbmocpiwx Progress Noteon 46-59-7537Pfqoynykyo Progress NoteSubjective PCP: Opal Ga DO ([place], [place]) Cardio: [facility] [place] [place] 83M with permanent AF, CHF, CKD, hypercholesterolemia transferred from [facility] for continued treatment of lower extremity edema and perioperative cardiology evaluation. Lower extremity edema suspected of being more related to chronic lymphedema than decompensated heart failure. Interval History: - POD #3 lumbar I&D with wound closure finding a small seroma - No significant events overnight - Fluid balance -3.3 L yesterday and -7.5 L since admission to [facility] (-4.7 L at [facility] prior to transfer) - Denies chest pain, dyspnea, palpitations, or lightheadedness Cardiac Testing Echocardiography > 04/13/24: (Limited) EF 45-50%, mild RV enlargement with mildly reduced systolic function, marked LAE, moderate MARCIA ([facility]) Objective Vitals & Measurements T: [...] Zofran, 4 mg= 2 mL, IV Push, t2oj-Vyfpoizs Times, PRN Assessment/Plan 1. Chronic HFmrEF (systolic [...] a cardiac perspective. Follow up with primary rn referral in [place], [place], after discharge. Will sign off. Medical Decision Making Number of Problems Addressed: Moderate (2 stable chronic problems [CHF, AF]) Data Reviewed/Analyzed: Moderate (reviewed results of at least 3 unique lab tests) Risk of Complications, Morbidity, or Mortality: Moderate (prescription drug management) Electronically signed by Frankie Dallas DO 04/20/24 13:[address] [facility] Dietary Progress Noteon 19-94-8189Bntcfmc Progress NotePt. screened for LOS. Pt. with [...] Electronically signed by Dolly Escobedo 04/20/24 13:26 ESTNormalBlParkview Health Montpelier HospitalDiff Autoon 77-11-8953Ydew Absolute0.0 x10*3/mcLNormal0.0-0.2BFort Hamilton Hospital Comment on above:Performed By: #### .Automated Diff ####[address] [address]Bawkcuzmu/100 WBC (Bld)0.6 % Normal0.0-1.2BFort Hamilton HospitalComment on above:Performed By: #### .Automated Diff ####[address] [address]Sqi Absolute0.5 x10*3/mcLHigh0.0-0.4BProtestant Deaconess Hospital SystemComment on above:Performed By: #### .Automated Diff ####[address] [address]Xejpcpnifdq/100 WBC (Bld)8.7 %High0.0-6.1 [facility] SystemComment on above:Performed By: #### .Automated Diff ####[address] [address]Vybka Absolute1.9 x10*3/mcLNormal1.0-4.8BProtestant Deaconess Hospital SystemComment on above:Performed By: #### .Automated Diff ####[address] [address]Tkksiugziup/100 WBC (Bld)32.3 %Ywnvil87.2-40.8 [facility] Memorial HospitalComment on above:Performed By: #### .Automated Diff ####[address] [address]Pxsi Absolute0.5 x10*3/mcLNormal0.3-1.1BProtestant Deaconess Hospital SystemComment on above:Performed By: #### .Automated Diff ####[address] [address]Rvudqtxil/100 WBC (Bld)9.0 %Normal4.7-13.9BProtestant Deaconess Hospital SystemComment on above:Performed By: #### .Automated Diff ####[address] [address]Xeurcv Absolute3.0 x10*3/mcLNormal1.8-7.7BProtestant Deaconess Hospital SystemComment on above:Performed By: #### .Automated Diff ####[address] [address]Joqddj Auto49.4 %Jmgsie83.2-70.8BFort Hamilton HospitalComment on above:Performed By: #### .Automated Diff ####[facility] [place], [place] [address]Zhiydppsn Clinical Summary on 77-41-4385Fivicwftl Clinical SummaryBlDeer Park Hospital [address] [place] [address] [phone] [address] [phone] Clinical Summary Person Information Name: Tavo Wallis Age: 83 Years : 1940 Sex: Male PCP: Tavo Mcintyre DO Marital Status: Phone: PCP: Race: White Ethnicity: Not or Language: Libyan Visit Id: Visit Reason: CHF exacerbation Speciality: Acuity: Enc Type: Inpatient Med Service: Medicine-General Arrival: 04/15/2024 03:52:56 Discharge: Dispo Type: Address: [address] [id number] Preferred Communication Mode: Preferred Language: Libyan Discharge Diagnosis: 1:Postoperative wound infection; 2:Dehiscence of [...] 04/18/24 11:08:00 EST, 1 to 2 weeks Alf Facility Certification 04/18/24 11:08:00 EST, Skilled, I certify assisted facility stay is anticipated to be LESS [...] range between ( 27.2 and 40.8 ) [place] Auto: 9.0 % -- Normal range between [...] range between ( 41.0 and 53.0 ) [place] Absolute: 0.5 x10 MCH: 31.1 pg -- Normal range between ( 27.0 and 35.0 ) Neutro Absolute: 3.0 x10 Hgb: 9.1 g/dL -- Normal range between ( 13.5 and 17.5 ) Me (more content not included)...NormalMccullough-Hyde Memorial HospitalMagnesiumon 70-80-0362Spmhkgsgz [Mass/Vol]2.1 mg/dLNormal1.7-2.4BFort Hamilton HospitalComment on above:Performed By: #### MG #### [address] [address]Udxzxbpxzy Progress Noteon 88-07-5600Ithzfgkzcl Progress Note Subjective POD#1 lumbar I&D. Patient [...] Zofran, 4 mg= 2 mL, IV Push, q4zz-Olnghhkq Times, PRN Assessment/Plan 1. Postoperative wound infection [...] signed by Mani Hannon PA-C 04/20/24 08:[address] [facility] Progress Note-Nurseon 70-56-3472Idsbwkto Note-Neknw52a 10cm single lumen powerglide midline catheter inserted in the left upper arm. Sterile field main tained. no complications noted. Patient tolerated well. lot # [id number] Electronically signed by Jonelle Wall 04/20/24 11:[address] [facility].eGFRon 84-86-0734Nkbtmkywn GFR52 mL/min/1.73m?Low>=60[facility] Comment on above:Result Comment: [facility] have implemented [...] 1 Age = yearsPerformed By: #### EGFR ####[address] [address]Zmcrc Metabolic Profileon 36-03-5309Yzplh gap [Moles/Vol] 6 mmol/LNormal4-12M[facility]Hy[facility] Memorial HospitalComment on above:Performed By: #### MG #### [address] [address]Vsvqgfq [Mass/Vol]8.5 mg/dLNormal8.5-10.3BFort Hamilton HospitalComment on above:Performed By: #### MG #### [address] [address]Bxbxdhrf [Moles/Vol]97 mmol/KIdb33-868LxjyimwflMccullough-Hyde Memorial HospitalComment on above:Performed By: #### MG #### [address] [address]KY6 [Moles/Vol]27 mmol/JDctbil52-52EgsgneqlgMccullough-Hyde Memorial HospitalComment on above:Performed By: #### MG #### [address] [address]Axmvirfbhk [Mass/Vol]1.37 mg/dLHigh0.61-1.24M[facility]-Hyde Memorial HospitalComment on above:Performed By: #### MG #### [address] [address]Shvzhur [Mass/Vol]94 mg/qIZjqakq25-23AjynuddihMccullough-Hyde Memorial HospitalComment on above:Performed By: #### MG #### [address] [address]Iefasqgrg [Moles/Vol]3.8 mmol/LNormal3.4-4.8BFort Hamilton HospitalComment on above:Performed By: #### MG #### [address] [address]Ehvnvv [Moles/Vol]130 mmol/OEeu535-104FduqruyylMccullough-Hyde Memorial HospitalComment on above:Performed By: #### MG #### [address] [address]Vqyz nitrogen [Mass/Vol]20 mg/dLNormal8-26M[facility]-Hyde Memorial HospitalComment on above:Performed By: #### MG #### [address] [address]Qczj nitrogen/Creatinine [Mass ratio]14.6 mg/gaSuzexj86.0-20.0 [facility] Memorial HospitalComment on above:Performed By: #### MG #### [address] [address]F ANAon 04-19-2024 KG Final No anaerobic growth after 72 hrs.NormalMccullough-Hyde Memorial HospitalComment on above:Performed By: #### CD:[id number] #### [address] [address]SGK w/ Diffon 04-00-4133Dbuqxvbnizs distribution width (RBC) [Ratio]18.1 %High11.6-14.8BFort Hamilton HospitalComment on above: Performed By: #### CD:[id number] #### [address] [address]Mjsajrlizx (Bld) [Volume fraction]27.4 %Low41.0-53.0M[facility]-Hyde Memorial HospitalComment on above:Performed By: #### CD:[id number] #### [address] [address]Sipsaduvjw (Bld) [Mass/Vol]9.3 g/dLLow13.5-17.5BFort Hamilton HospitalComment on above:Performed By: #### CD:[id number] #### [address] [address]DCJ (RBC) [Entitic mass]31.4 szCogwok39.0-35.0[facility] HospitalComment on above:Performed By: #### CD:[id number] #### [address] [address]YYME06.0 %Ejqwrs97.0-37.0[facility] HospitalComment on above:Performed By: #### CD:[id number] #### [address] [address]CND (RBC) [Entitic vol]92.4 tFUwulkq75.0-100.0[facility] HospitalComment on above:Performed By: #### CD:[id number] #### [address], [place] [address]Tdqwkydv655 x10*3/gpIOttgti272-500NixojlpxiMccullough-Hyde Memorial HospitalComment on above:Performed By: #### CD:[id number] #### [address] [address]Rkiqhuhn mean volume (Bld) [Entitic vol]7.2 fLNormal6.7-10.6 [facility] HospitalComment on above:Performed By: #### CD:[id number] #### [address], [place] [address]SXD2.96 x10*6/mcLLow4.30-5.80[facility] Comment on above:Performed By: #### CD:[id number] #### [address], [place] [address]ABR1.9 x10*3/mcLNormal4.5-11.0[facility] Comment on above:Performed By: #### CD:[id number] #### [address] [address]Sjri Autoon 70-51-5732Gqfg Absolute0.0 x10*3/mcLNormal0.0-0.2 [facility] HospitalComment on above:Performed By: #### MG #### [address] [address]Gjpwryjuc/100 WBC (Bld)0.5 %Normal0.0-1.2BFort Hamilton HospitalComment on above:Performed By: #### MG #### [address] [address]Ytp Absolute0.4 x10*3/mcLNormal0.0-0.4BFort Hamilton HospitalComment on above:Performed By: #### MG #### [address] [address]Wnvevjripxh/100 WBC (Bld)5.9 %Normal0.0-6.1BFort Hamilton HospitalComment on above:Performed By: #### MG #### [address] [address]Wjdlt Absolute2.2 x10*3/mcLNormal1.0-4.8BFort Hamilton HospitalComment on above:Performed By: #### MG #### [address] [address]Ptugyfbiiot/100 WBC (Bld)32.3 %Lgupko24.2-40.8BFort Hamilton HospitalComment on above:Performed By: #### MG #### [address] [address]Haek Absolute0.8 x10*3/mcLNormal0.3-1.1BFort Hamilton HospitalComment on above:Performed By: #### MG #### [address] [address]Afnmmkzhd/100 WBC (Bld)11.2 %Normal4.7-13.9BFort Hamilton HospitalComment on above:Performed By: #### MG #### [facility] [address] [place], [place] [address]Oxhrug Absolute3.5 x10*3/mcLNormal1.8-7.7BFort Hamilton HospitalComment on above:Performed By: #### MG #### [facility] [address] [place], [place] [address]Rlvfgx Auto50.1 %Wxpiwn52.2-70.8BFort [facility] Comment on above:Performed By: #### MG #### [facility] [address] [place], [place] [address]Hncgnlzirq Disease Progress Noteon 62-82-0577Mzmokdtgys Disease Progress NoteSubjective Overall feeling okay. No [...] with patient's daughter who is power of jig grinder. CRF filled out. Ordered: Midline Catheter Insertion 2. Dehiscence of surgical wound 3. Atrial fibrillation, permanent 4. Current use of anticoagulants 5. Lymphedema 6. Chronic systolic heart failure 7. Postoperative urinary retention 8. Preoperative cardiovascular examination Electronically signed by Tye Pompa MD 04/19/24 20:32 ESTNormalMccullough-Hyde Memorial HospitalMagnesiumon 40-57-4027Owxicotuf [Mass/Vol]2.1 mg/dLNormal1.7-2.4 [facility] HospitalComment on above:Performed By: #### CBC #### [place] [address].eGFRon 08-26-0155Ozgutjzgc GFR48 mL/min/1.73m?Low>=60[facility] Memorial HospitalComment on above:Result Comment: [facility] have implemented [...] Age = yearsPerformed By: #### CBC #### [address] [address]Clwla Metabolic Profileon 74-97-9877Hozzt gap [Moles/Vol]8 mmol/LNormal4-12[facility] Memorial HospitalComment on above:Performed By: #### MG #### [address] [address]Twrxhvd [Mass/Vol]8.3 mg/dLLow8.5-10.3BFort Hamilton HospitalComment on above:Performed By: #### MG #### [address] [address]Fkdclqqq [Moles/Vol]97 mmol/AMzx83-727JcvclgnfnMccullough-Hyde Memorial HospitalComment on above:Performed By: #### MG #### [address] [address]WH8 [Moles/Vol]27 mmol/NRxsbns87-45YsidipsxmMccullough-Hyde Memorial HospitalComment on above:Performed By: #### MG #### [address] [address]Zzxpoxhxpb [Mass/Vol]1.45 mg/dLHigh0.61-1.24[facility] Memorial HospitalComment on above:Performed By: #### MG #### [address] [address]Umookva [Mass/Vol]87 mg/bGUioifn64-49AvwszaoxaMccullough-Hyde Memorial HospitalComment on above:Performed By: #### MG #### [address] [address]Feizcnrwk [Moles/Vol]3.9 mmol/LNormal3.4-4.8BFort Hamilton HospitalComment on above:Performed By: #### MG #### [address] [address]Yortkl [Moles/Vol]132 mmol/FBcd049-124GlgzlqqpqMccullough-Hyde Memorial HospitalComment on above:Performed By: #### MG #### [address] [address]Ycwh nitrogen [Mass/Vol]19 mg/dLNormal8-26[facility] Memorial HospitalComment on above:Performed By: #### MG #### [address] [address]Donj nitrogen/Creatinine [Mass ratio]13.1 mg/ukAaezzw94.0-20.0 [facility] HospitalComment on above:Performed By: #### MG #### [address] [address]HEE w/ Diffon 30-55-0169Dhaccmrbzjo distribution width (RBC) [Ratio]18.1 %High11.6-14.8BFort Hamilton HospitalComment on above: Performed By: #### MG #### [address] [address]Xrzyijdwld (Bld) [Volume fraction]26.8 %Low41.0-53.0[facility] Memorial HospitalComment on above:Performed By: #### MG #### [address] [address]Uvfpwkrnun (Bld) [Mass/Vol]8.9 g/dLLow13.5-17.5BFort Hamilton HospitalComment on above:Performed By: #### MG #### [address] [address]XBK (RBC) [Entitic mass]30.6 suVxpydm62.0-35.0[facility] Memorial HospitalComment on above:Performed By: #### MG #### [address] [address]QMEU32.1 %Mznugz65.0-37.0[facility] Memorial HospitalComment on above:Performed By: #### MG #### [address] [address]RAN (RBC) [Entitic vol]92.6 nGJqegvj60.0-100.0[facility] Memorial HospitalComment on above:Performed By: #### MG #### [address] [address]Ikefzytg545 x10*3/wmDUvogdc637-931QmhvhxkwxMccullough-Hyde Memorial HospitalComment on above:Performed By: #### MG #### [address] [address]Ckebxfdd mean volume (Bld) [Entitic vol]6.9 fLNormal6.7-10.6 [facility] Memorial HospitalComment on above:Performed By: #### MG #### [address] [address]OOH3.90 x10*6/mcLLow4.30-5.80[facility] Comment on above:Performed By: #### MG #### [address] [address]MNY4.5 x10*3/mcLNormal4.5-11.0[facility] Comment on above:Performed By: #### MG #### [address] [address]RIPpq 73-38-1100XFG67.60 mg/dLHigh0.00-0.75[facility] Memorial HospitalComment on above:Result Comment: CRP measurement is useful for assessment of non-specific INFLAMMATORY RESPONSE to infection or injury AND is a sensitive MARKER of ACUTE INFLAMMATION including CARDIAC RISK ASSESSMENT. CARDIAC patients with elevated CRP are POTENTIALLY at a HIGHER RISK OF FUTURE CARDIAC EVENTS.Performed By: #### MG #### [address] [address]Zulzptfeuo Progress Noteon 57-23-3136Zwrzdfjqqr Progress Note Subjective PCP: Opal Ga DO ([place], [place]) Cardio: [facility] [place] [place] 83M with permanent AF, CHF, CKD, hypercholesterolemia transferred from [facility] for continued treatment of lower extremity edema and perioperative cardiology evaluation. Lower extremity edema suspected of being more related to chronic lymphedema than decompensated heart failure. Interval History: - POD #1 lumbar I&D with wound closure finding a small seroma - No significant events overnight - Fluid balance -1.3 L yesterday and -4.0 L since admission to [facility] (-4.7 L at [facility] prior to transfer) - Denies chest pain, dyspnea, palpitations, or lightheadedness Cardiac Testing Echocardiography > 04/13/24: (Limited) EF 45-50%, mild RV enlargement with mildly reduced systolic function, marked LAE, moderate MARCIA ([facility]) Objective Vitals & Measurements T: [...] Zofran, 4 mg= 2 mL, IV Push, y9ax-Jmwvvcir Times, PRN Assessment/Plan 1. Chronic HFmrEF (systolic [...] signed by Frankie Dallas DO 04/18/24 07:[address] [facility] Diff Autoon 44-47-5523Nkgb Absolute0.1 x10*3/mcLNormal0.0-0.2BFort Hamilton HospitalComment on above:Performed By: #### .Automated Diff ####[address] [address]Jfaoqxcfd/100 WBC (Bld)0.6 %Normal0.0-1.2BFort Hamilton HospitalComment on above:Performed By: #### .Automated Diff ####[address] [address]Qia Absolute0.3 x10*3/mcLNormal0.0-0.4BFort Hamilton HospitalComment on above:Performed By: #### .Automated Diff ####[address] [address]Qdbjgytvxki/100 WBC (Bld)4.0 %Normal0.0-6.1 [facility] HospitalComment on above:Performed By: #### .Automated Diff ####[address] [address]Zgwpo Absolute2.7 x10*3/mcLNormal1.0-4.8BFort Hamilton HospitalComment on above:Performed By: #### .Automated Diff ####[address] [address]Ozttrhnijnf/100 WBC (Bld)32.0 %Jopkjr49.2-40.8 [facility] HospitalComment on above:Performed By: #### .Automated Diff ####[address] [address]Ihjo Absolute0.8 x10*3/mcLNormal0.3-1.1BFort Hamilton HospitalComment on above:Performed By: #### .Automated Diff ####[address] [address]Lhuambrsw/100 WBC (Bld)9.7 %Normal4.7-13.9BFort Hamilton HospitalComment on above:Performed By: #### .Automated Diff ####[place] [place], [place] [address]Oezxqk Absolute4.5 x10*3/mcLNormal1.8-7.7BFort Hamilton HospitalComment on above:Performed By: #### .Automated Diff ####[address] [address]Qqqylx Auto53.7 %Xdpmkt45.2-70.8BFort Hamilton HospitalComment on above:Performed By: #### .Automated Diff ####[address] [address]ZGUjp 56-36-2151Fsw Rate75 mm/hrHigh0-23[facility] Memorial HospitalComment on above:Performed By: #### ESR ####[address] [address] Infectious Disease Progress Noteon 57-76-2909Brqcdcdyrq Disease Progress Note Subjective Noted to have [...] signed by Tye Pompa MD 04/18/24 17:30 ESTNormalMccullough-Hyde Memorial HospitalMagnesiumon 31-28-9209Trrjixhve [Mass/Vol]1.8 mg/dLNormal1.7-2.4 [facility] HospitalComment on above:Performed By: #### MG #### [address] [address]Yzvcmnjfbj Progress Noteon 20-40-7000Flyvfgvouo Progress Note Subjective POD#1 lumbar I&D. Patient [...] Zofran, 4 mg= 2 mL, IV Push, f8yc-Bzzkjcfc Times, PRN Assessment/Plan 1. Dehiscence of surgical wound 2. Atrial fibrillation, permanent 3. Current use of anticoagulants 4. Lymphedema 5. Chronic systolic heart failure 6. Postoperative urinary retention Plan: 1. Continue drain 2. ID consulted and following along 3. Discharge pending Electronically signed by Mani Hannon PA-C 04/18/24 06:30 ESTNormalMccullough-[facility] Hospital Respiratory Pathogens Panelon 00-35-4900Vzdfalqxoj.Not detectedNormalNot DetectedMccullough-Hyde Memorial HospitalComment on above:Performed By: #### CD:[id number] #### [address] [address]Vuoiskeiml holmesiiNot detectedNormalNot DetectedMccullough-Hyde Memorial HospitalComment on above:Result Comment: Testing was performed using nucleic acid amplification including Influenza A, Influenza A/H1, Influenza A/H3, Influenza B, RSV A, RSV B, Adenovirus, Human Metapneumovirus, Parainfluenz a 1, 2, 3, 4, Rhinovirus, Bordatella parapertussis / bronchiseptica, Bordatella holmesii, Bordatella pertussis. Results from the [employer] Respiratory Pathogens Panel should be interpreted with [...] and / or Influenza B.Performed By: #### CD:[id number] #### [address] [address]Ntnedvnqet para/bronchNot detectedNormalNot DetectedMccullough-Hyde Memorial HospitalComment on above:Performed By: #### CD:[id number] #### [address] [address]Dxqwgfjlxi pertussisNot detectedNormalNot DetectedMccullough-Hyde Memorial HospitalComment on above:Performed By: #### CD:[id number] #### [address], [place] [address]iBJELst detectedNormalNot DetectedMccullough-Hyde Memorial HospitalComment on above:Performed By: #### CD:[id number] #### [address], [place] [address]Cewexnngk ANot detectedNormalNot DetectedMccullough-Hyde Memorial HospitalComment on above:Performed By: #### CD:[id number] #### [address] [address]Kxvjppnvx A/H1Not detectedNormalNot DetectedKettering Health SystemComment on above:Performed By: #### CD:[id number] #### [address], [place] [address]Wmuizxmhg A/H3Not detectedNormalNot DetectedKettering Health SystemComment on above:Performed By: #### CD:[id number] #### [facility] [address] [facility], [place] [address]Tuktorrgi BNot detectedNormalNot DetectedKettering Health SystemComment on above:Performed By: #### CD:[id number] #### [address], [place] [address]Xtiepgqjxtflo 1Not detectedNormalNot DetectedKettering Health SystemComment on above:Performed By: #### CD:[id number] #### [address], [place] [address]Yubvoxrmmjdcw 2Not detectedNormalNot DetectedKettering Health SystemComment on above:Performed By: #### CD:[id number] #### [address], [place] [address]Tcacucwgfhteg 3Not detectedNormalNot DetectedKettering Health SystemComment on above:Performed By: #### CD:[id number] #### [address], [place] [address]Fosojnybseduv 4Not detectedNormalNot DetectedKettering Health SystemComment on above:Performed By: #### CD:[id number] #### [address], [place] [address]FbbrbyyzytSby detectedNormalNot DetectedKettering Health SystemComment on above:Result Comment: Due to the genetic similarity between human rhinovirus and enterovirus, some strains of enterovirus may be detected as rhinovirus by this assay.Performed By: #### CD:[id number] #### [address], [place] [address]MPV ANot detectedNormalNot DetectedBlParkview Health Montpelier HospitalComment on above:Performed By: #### CD:[id number] #### [facility] [address] [place], [place] [address]BWJ BNot detectedNormalNot DetectedMccullough-Hyde Memorial HospitalComment on above:Performed By: #### CD:[id number] #### [facility] [address] [place], [place] [address]HA Chest 1 Viewon 42-79-2822BT Chest 1 ViewCLINICAL HISTORY: Worsening dyspnea. EXAMINATION: [...] Signed, Electronically Signed in Other Vendor System)Normal [facility].eGFRon 58-22-9209Fjnmcccjy GFR52 mL/min/1.73m?Low >=60[facility] HospitalComment on above:Result Comment: [facility] have implemented [...] 1 Age = yearsPerformed By: #### EGFR ####[address] [address]Hgueu Metabolic Profileon 27-74-4890Ysyeb gap [Moles/Vol] 7 mmol/LNormal4-12[facility] HospitalComment on above:Performed By: #### CD:[id number] ####[address] [address]Rodhipk [Mass/Vol]8.4 mg/dLLow8.5-10.3BFort [facility] Comment on above:Performed By: #### CD:[id number] ####[address] [address]Rqumwwgl [Moles/Vol]100 mmol/L Wvrbmw63-381YliuovrycMccullough-Hyde Memorial HospitalComment on above:Performed By: #### CD:[id number] ####[address] [address]XQ2 [Moles/Vol]26 mmol/PAiyzcy40-61YctitvajkMccullough-Hyde Memorial HospitalComment on above:Performed By: #### CD:[id number] ####[address] [address]Rkkrcoyixb [Mass/Vol]1.37 mg/dLHigh0.61-1.24 [facility] HospitalComment on above:Performed By: #### CD:[id number] ####[address] [address]Oahtvon [Mass/Vol]89 mg/oIOjvupo87-12QmgeeemxhMccullough-Hyde Memorial HospitalComment on above: Performed By: #### CD:[id number] ####[address] [address]Kufxepmpn [Moles/Vol]3.7 mmol/LNormal3.4-4.8BFort Hamilton HospitalComment on above:Performed By: #### CD:[id number] ####[address] [address]Fjatlb [Moles/Vol]133 mmol/LYysdkt431-476FiqyrztdnMccullough-Hyde Memorial HospitalComment on above:Performed By: #### CD:[id number] ####[address] [address]Xbxd nitrogen [Mass/Vol]20 mg/dLNormal8-26[facility] Memorial HospitalComment on above:Performed By: #### CD:[id number] ####[address] [address]Gvah nitrogen/Creatinine [Mass ratio]14.6 mg/wuIllzjl38.0-20.0[facility] HospitalComment on above:Performed By: #### CD:[id number] ####[address] [address]PCA w/ Diffon 04-17-2024 Erythrocyte distribution width (RBC) [Ratio]18.7 %High11.6-14.8BFort Hamilton HospitalComment on above:Performed By: #### CBC ####[address] [address]Avszybyjyi (Bld) [Volume fraction]26.4 %Low41.0-53.0[facility] HospitalComment on above: Performed By: #### CBC ####[address] [address]Svprzudulw (Bld) [Mass/Vol]9.0 g/dLLow13.5-17.5BFort Hamilton HospitalComment on above:Performed By: #### CBC ####[address] [address]GLB (RBC) [Entitic mass]31.8 pg Rzqaxf75.0-35.0[facility] Memorial HospitalComment on above:Performed By: #### CBC ####[address] [address]KVCE43.2 %Fybjkf17.0-37.0[facility] Memorial HospitalComment on above:Performed By: #### CBC ####[address] [address]GRO (RBC) [Entitic vol]93.0 pHSbfgws17.0-100.0[facility] Memorial HospitalComment on above:Performed By: #### CBC ####[address] [address]Jcgnvswz371 x10*3/kcPZmaqcg895-552RzipfefkgMccullough-Hyde Memorial HospitalComment on above:Performed By: #### CBC ####[place] [id number] mean volume (Bld) [Entitic vol]6.5 fL Low6.7-10.6BFort Hamilton HospitalComment on above:Performed By: #### CBC ####[address] [address]AHR9.84 x10*6/mcLLow4.30-5.80[facility] Memorial HospitalComment on above:Performed By: #### CBC ####[address] [address]FTS6.6 x10*3/mcLNormal4.5-11.0[facility] HospitalComment on above:Performed By: #### CBC ####[address] [address]Lscq Autoon 12-05-9003Rhyf Absolute0.1 x10*3/mcLNormal 0.0-0.2BFort Hamilton HospitalComment on above:Performed By: #### CD:[id number] #### [address] [address]Kivydokmg/100 WBC (Bld)1.3 %High0.0-1.2BFort Hamilton HospitalComment on above:Performed By: #### CD:[id number] #### [address] [address]Qzm Absolute0.3 x10*3/mcLNormal0.0-0.4BFort Hamilton HospitalComment on above:Performed By: #### CD:[id number] #### [address], [place] [address]Trolwdwyqfe/100 WBC (Bld)5.4 %Normal0.0-6.1BProtestant Deaconess Hospital SystemComment on above:Performed By: #### CD:[id number] #### [address], [place] [address]Itwkj Absolute1.6 x10*3/mcLNormal1.0-4.8BFort Hamilton HospitalComment on above:Performed By: #### CD:[id number] #### [address] [address]Mijxbcxbgqc/100 WBC (Bld)28.7 %Xjmbcg75.2-40.8BFort Hamilton HospitalComment on above:Performed By: #### CD:[id number] #### [address], [place] [address]Vmsp Absolute0.5 x10*3/mcLNormal0.3-1.1BFort Hamilton HospitalComment on above:Performed By: #### CD:[id number] #### [address] [address]Dgvsrcwyh/100 WBC (Bld)9.7 %Normal4.7-13.9BProtestant Deaconess Hospital SystemComment on above:Performed By: #### CD:[id number] #### [address], [place] [address]Ncriqw Absolute3.1 x10*3/mcLNormal1.8-7.7BProtestant Deaconess Hospital SystemComment on above:Performed By: #### CD:[id number] #### [address], [place] [address]Binvwb Auto54.9 %Uoannn52.2-70.8BProtestant Deaconess Hospital System Comment on above:Performed By: #### CD:[id number] #### [facility] [address] [place], [place] [address]Kfe & Hcton 87-11-8629Ajmlzlagsq (Bld) [Volume fraction]27.2 % Low41.0-53.0M[facility] Memorial HospitalComment on above:Performed By: #### HGBHCT ####[facility] [place] [address] Hemoglobin (Bld) [Mass/Vol]9.1 g/dLLow13.5-17.5BFort [facility] Hospital Comment on above:Performed By: #### HGBHCT ####[address] [address]Yjusaqhovd Disease Consultationon 04-17-2024 Infectious Disease ConsultationChief Complaint [...] for the tumor. His initial surgery at [facility] in [place]. Postoperatively apparently he gained a lot of fluid weight. He was sent to jail and due to persistent edema he was sent to [facility]. Catheter wasplaced and was found to [...] up either. He was sent back to jail. Apparently wound broke down due to persistent pressure with the back brace on against the bed. At 1 point his lymphedema pump was apparently put on over socks and caused extreme pain due to the tightness. He is doing okay at this point. He does not have any open areas in the legs or feet. He was initially admitted to [place] with MRI showing a fluid collection. He [...] being told of any fever by the jail. She has been unhappy with the care at the facility. On review of documents from [place] he was on remdesivir on the and 14 April. However daughter states he was treated for COVIDwhile he was in [facility] earlier in March. Apparently though [...] of left hip replacement (more content not included)...NormalMccullough-Hyde Memorial HospitalMagnesiumon 81-99-9941Mnysdbiiu [Mass/Vol]2.0 mg/dLNormal 1.7-2.4BFort Hamilton HospitalComment on above:Performed By: #### MG #### [place], [place] [address]Operative Reporton 03-85-2933Jrggnanms ReportPreoperative Diagnosis lumbar postoperative fluid collection with wound dehiscence Postoperative Diagnosis same Operation Lumbar I&D with wound closure Surgeon(s) [facility] TIDWELL, Randi Mesa (Surgeon - Primary) Features Editor Mani Hannon PA-C (Inside Sales Agent) Anesthesia General Lupe TIDWELL, Elan Hurtado (Heel Attacher) Presley Pereira MD, Alejandro Thomas (Heel Attacher) Girish Gonzalez (Provider) Estimated Blood Loss 25 mL Findings small seroma Specimen(s) Sterile Body Sites Culture (Back Wound for aerobic,Tissue,Back) Anaerobic Culture (Back wound for anaerobic,Wound,Back) Complications none Catheters, Drains, Tubes Device: Wound Drain W/Trocar [id number] Electronically signed by Lalo LECHUGA Gustabo Sharpe 04/17/24 07:23 ESTNormOhioHealth Shelby Hospital Sodiumon 80-21-3670Vhfqdd [Moles/Vol]134 mmol/DRdgljr213-538JewbmudreMccullough-Hyde Memorial HospitalComment on above:Performed By: #### NA ####[facility] [place], [place] [address]Qjksg Troughon 50-84-5928Xfqdj Qrevnj59.8 mcg/nCIcsbap36.0-15.0M[facility]-Hyde Memorial HospitalComment on above: Performed By: #### VANCT #### [address] [address].eGFRon 04-93-7618Itiirbwmu GFR46 mL/min/1.73m?Low>=60M[facility]-Hyde Memorial HospitalComment on above:Result Comment: [facility] have implemented [...] Age = yearsPerformed By: #### EGFR #### [facility] [address] [place] [address]BJH/Rhon 33-58-4967DNK/RhABO/Rh: O POSNormOhioHealth Shelby HospitalComment on above:Performed By: #### VANCT #### [place] [address] [facility], [place] [address]RADC Autoon 95-17-3150CHVB AutoNegativeNormalMccullough-Hyde Memorial HospitalComment on above:Performed By: #### ASA #### [facility] (UNKNOWN) [address] [facility], [place] [address]U43pe 15-40-5606Ftnfjwqxa (Vitamin B12) [Mass/Vol]422 pg/mL Ifxxky356-141KxivhbhrqFort Hamilton HospitalComment on above:Performed By: #### CD:[id number] #### [facility] [address] [place] [address], [place] [address]Ldkap Metabolic Profileon 52-15-6726Zoevm gap [Moles/Vol]8 mmol/LNormal4-12M[facility] Memorial HospitalComment on above:Performed By: #### CD:[id number] #### [address], [place] [address]Gguwtit [Mass/Vol]8.5 mg/dLNormal8.5-10.3BFort Hamilton HospitalComment on above:Performed By: #### CD:[id number] #### [address], [place] [address]Wivkhkqn [Moles/Vol]96 mmol/TZdj18-017EbwnmtnccMccullough-Hyde Memorial HospitalComment on above:Performed By: #### CD:[id number] #### [address], [place] [address]AI5 [Moles/Vol]26 mmol/PRtpjsu23-74AszgymdcyMccullough-Hyde Memorial HospitalComment on above:Performed By: #### CD:[id number] #### [address], [place] [address]Lkorjgucul [Mass/Vol]1.51 mg/dLHigh0.61-1.24M[facility]ull[facility]-Hyde Memorial HospitalComment on above:Performed By: #### CD:[id number] #### [address], [place] [address]Izchmrk [Mass/Vol]85 mg/xTFbevao08-94GwoqoeqzhMccullough-Hyde Memorial HospitalComment on above:Performed By: #### CD:[id number] #### [address] [address]Tupdibcfn [Moles/Vol]3.6 mmol/LNormal3.4-4.8BFort Hamilton HospitalComment on above:Performed By: #### CD:[id number] #### [address] [address]Nwpqgm [Moles/Vol]130 mmol/OHxv455-717XqqllizaeMccullough-Hyde Memorial HospitalComment on above:Performed By: #### CD:[id number] #### [address] [address]Oqra nitrogen [Mass/Vol]23 mg/dLNormal8-26M[facility]ull[facility]-Hyde Memorial HospitalComment on above:Performed By: #### CD:[id number] #### [address] [address]Daxn nitrogen/Creatinine [Mass ratio]15.2 mg/ceVqxdsg55.0-20.0 [facility] HospitalComment on above:Performed By: #### CD:[id number] #### [address] [address]QWU w/ Diffon [id number] distribution width (RBC) [Ratio]15.4 %High11.6-14.8BFort Hamilton HospitalComment on above: Performed By: #### CBC ####[address] [address]Odrpylfokr (Bld) [Volume fraction]23.3 %Low41.0-53.0 [facility] HospitalComment on above:Performed By: #### CBC ####[address] [address]Eqiidqdeuv (Bld) [Mass/Vol]7.7 g/dLLow13.5-17.5BFort Hamilton HospitalComment on above:Performed By: #### CBC ####[address] [address]XYY (RBC) [Entitic mass]32.0 gzXftyin37.0-35.0[facility] Memorial HospitalComment on above:Performed By: #### CBC ####[place] [id number] %Cmowwe55.0-37.0 [facility] HospitalComment on above:Performed By: #### CBC ####[place] [id number] (RBC) [Entitic vol]96.5 lQJwjysn92.0-100.0Mccullough-Hyde Memorial HospitalComment on above:Performed By: #### CBC ####[address] [address]Okyhgsxd725 x10*3/saXFnsfea909-266Dvrfliqqw Valley Health SystemComment on above:Performed By: #### CBC ####[place] [id number] mean volume (Bld) [Entitic vol]6.9 fL Normal6.7-10.6BFort Hamilton HospitalComment on above:Performed By: #### CBC ####[address] [address]SHQ8.41 x10*6/mcLLow4.30-5.80Mccull[facility]-Hyde Memorial HospitalComment on above:Performed By: #### CBC ####[address] [address]RHS3.5 x10*3/mcLNormal4.5-11.0Mccull[facility]-Hyde Memorial HospitalComment on above:Performed By: #### CBC ####[address] [address]Znlbtnlbwd Progress Noteon 13-77-8099Pmvctmnpkh Progress NoteSubjective PCP: Opal Ga DO ([place], [place]) Cardio: Kathy Mcintyre DO ([facility], [place], [place]) 83M with permanent AF, CHF, CKD, hypercholesterolemia transferred from [facility] for continued treatment of lower extremity edema and perioperative cardiology evaluation. Lower extremity edema suspected of being more related to chronic lymphedema than decompensated heart failure. Interval History: - Surgery reportedly planned for Tuesday, 04/17 at 6 am - No significant events overnight - Fluid balance -720 mL yesterday and -1.1 L since admission to [facility] (-4.7 L at [facility] prior to transfer) - Lower extremity edema decreasing - Denies chest pain, dyspnea, palpitations, or lightheadedness Cardiac Testing Echocardiography > 04/13/24: (Limited) EF 45-50%, mild RV enlargement with mildly reduced systolic function, marked LAE, moderate MARCIA ([facility]) Objective Vitals & Measurements T: [...] signed by Frankie Dallas DO 04/16/24 10:16 ESTNormOhioHealth Shelby Hospital Diff Autoon 41-50-2625Wmcz Absolute0.1 x10*3/mcLNormal0.0-0.2BFort Hamilton HospitalComment on above:Performed By: #### .Automated Diff ####[address] [address]Xpxdtkexk/100 WBC (Bld)0.8 %Normal0.0-1.2[facility] Health SystemComment on above:Performed By: #### .Automated Diff ####[address] [address]Qis Absolute0.3 x10*3/mcLNormal0.0-0.4BProtestant Deaconess Hospital SystemComment on above:Performed By: #### .Automated Diff ####[address] [address]Uhwgfsruktt/100 WBC (Bld)3.8 %Normal0.0-6.1 [facility] SystemComment on above:Performed By: #### .Automated Diff ####[address] [address]Nizvm Absolute2.5 x10*3/mcLNormal1.0-4.8BProtestant Deaconess Hospital SystemComment on above:Performed By: #### .Automated Diff ####[address] [address]Foacdcxhthl/100 WBC (Bld)33.2 %Bzjwyh29.2-40.8 [facility]Hyde Memorial HospitalComment on above:Performed By: #### .Automated Diff ####[address] [address]Zhfn Absolute0.5 x10*3/mcLNormal0.3-1.1BFort Hamilton HospitalComment on above:Performed By: #### .Automated Diff ####[address] [address]Nlcbwyhsf/100 WBC (Bld)6.6 %Normal4.7-13.9BProtestant Deaconess Hospital SystemComment on above:Performed By: #### .Automated Diff ####[address] [address]Xwxhoo Absolute4.1 x10*3/mcLNormal1.8-7.7BProtestant Deaconess Hospital SystemComment on above:Performed By: #### .Automated Diff ####[address] [address]Zfbjbz Auto55.6 %Bqhppq17.2-70.8BFort Hamilton HospitalComment on above:Performed By: #### .Automated Diff ####[address] [address]Tktsnwegtj 04-16-2024 Ferritin Nck948.5 ng/zMBkrqci60.9-336.2BFort Hamilton HospitalComment on above:Performed By: #### FERR ####[address] [address]Webraz Lvlon 55-29-5777Hwclvn Lvl5.9 ng/mLNormal>=5.9 [facility]-Hyde Memorial HospitalComment on above:Result Comment: A WHO Technical Consultation has determined that deficient Folate concentrations are considered to be less than 4 ng/mL.Performed By: #### FOL ####[address] [address]Tsx & Hcton 77-74-2567Vdvxjmbroi (Bld) [Volume fraction]26.1 %Low41.0-53.0Mccullough-Hyde Memorial HospitalComment on above: Performed By: #### CBC #### [address] [address]Vapecraved (Bld) [Mass/Vol]9.0 g/dLLow13.5-17.5BFort Hamilton HospitalComment on above:Performed By: #### CBC #### [address] [address]Ytamcxhmutb 34-94-6537Ciykpuivw [Mass/Vol]2.0 mg/dLNormal 1.7-2.4BFort Hamilton HospitalComment on above:Performed By: #### MG ####[address] [address]Migbi Count on 64-57-7064Mzxzkmvfn Retic Count0.82 %Normal0.80-2.50Mccullough-Hyde Memorial HospitalComment on above:Performed By: #### CD:[id number] #### [address] [address]Uovgbciwcm (Bld) [Volume fraction]23.0 %Low41.0-53.0Mccullough-Hyde Memorial HospitalComment on above:Performed By: #### CD:[id number] #### [address] [address]Qmf Abs0.0370 x10*6/mcLNormalMccullough-Hyde Memorial Hospital Comment on above:Performed By: #### CD:[id number] #### [address] [address]Gxsnxcmhcrmy0.6 %Normal0.8-2.5BFort Hamilton Hospital Comment on above:Performed By: #### CD:[id number] #### [address] [address]ZZILyd 84-77-0442Bkls [Mass/Vol]26 ug/dZXoi15-223WumjyjxjlMccullough-Hyde Memorial HospitalComment on above:Performed By: #### TIBC ####[address] [address]Nsrl Sat11.6 %Low>=16.0 [facility]-Hyde Memorial HospitalComment on above:Performed By: #### TIBC ####[address] [address]JBLA338 mcg/nYCnn881-302WbdfxdozpMccullough-Hyde Memorial HospitalComment on above:Performed By: #### TIBC ####[address] [address] Transferrin [Mass/Vol]160 mg/yDEco256-079FdczaglinMccullough-Hyde Memorial HospitalComment on above:Performed By: #### TIBC ####[address] [address].AMI 2 Hron Hour Vsfiaefdi25.8 ng/mLNormal 17.4-105.7BFort Hamilton HospitalComment on above:Performed By: #### MG #### [address] [address] Hour Troponin<0.73Knvwuc5.00-0.03Mccullough-Hyde Memorial HospitalComment on above:Result Comment: An increased Troponin-I value, in the absence of myocardial ischemia, may indicate other etiologies of cardiac damage. 99th Percentile Cutoff for Negative/Positive: Negative <= 0.03 Positive >= 0.04Performed By: #### MG #### [address] [address].eGFRon 65-27-6807Cnonmywxs GFR55 mL/min/1.73m?Low>=60Mccullough-Hyde Memorial HospitalComment on above:Result Comment: [facility] have implemented [...] or 1 Age = yearsPerformed By: #### CD:[id number] #### [address] [address]YNEvh 16-77-5151Nvcketumfoo peptide B (Bld) [Mass/Vol]166 pg/mL High0-100Mccullough-Hyde Memorial HospitalComment on above:Performed By: #### CD:[id number] #### [address] [address]VQB w/ Diffon 98-59-9915Lnbynlgoaiq distribution width (RBC) [Ratio]15.7 %High11.6-14.8BFort Hamilton HospitalComment on above: Performed By: #### CBC #### [address], [place] [address]Mhbulqpuns (Bld) [Volume fraction]26.7 %Low41.0-53.0Mccullough-Hyde Memorial HospitalComment on above:Performed By: #### CBC #### [address] [address]Hfrgjmozqd (Bld) [Mass/Vol]8.9 g/dLLow13.5-17.5BFort Hamilton HospitalComment on above:Performed By: #### CBC #### [address] [address]NCF (RBC) [Entitic mass]32.2 tqRdamax40.0-35.0Mccull[facility]-Hyde Memorial HospitalComment on above:Performed By: #### CBC #### [address] [address]HXMC15.5 %Jizhvy74.0-37.0Mccullough-Hyde Memorial HospitalComment on above:Performed By: #### CBC #### [address] [address]MLH (RBC) [Entitic vol]96.1 bDNutlqt16.0-100.0Mccullough-Hyde Memorial HospitalComment on above:Performed By: #### CBC #### [address] [address]Lfzvkowp848 x10*3/tsSSptlxf662-145MeojualhbMccullough-Hyde Memorial HospitalComment on above:Performed By: #### CBC #### [address] [address]Nwbwiavy mean volume (Bld) [Entitic vol]6.7 fLNormal6.7-10.6 [facility]-Hyde Memorial HospitalComment on above:Performed By: #### CBC #### [address] [address]HDL7.78 x10*6/mcLLow4.30-5.80[facility] Comment on above:Performed By: #### CBC #### [address] [address]TUI1.7 x10*3/mcLNormal4.5-11.0[facility] Comment on above:Performed By: #### CBC #### [address] [address]NFCwv 62-33-0006Grzfbpm [Mass/Vol]3.0 g/dLLow3.2-4.9BFort Hamilton HospitalComment on above:Performed By: #### CBC #### [address] [address]Eqvsais/Globulin [Mass ratio]0.8 {ratio}Low1.1-2.2BFort Hamilton HospitalComment on above:Performed By: #### CBC #### [address] [address]Wfr Wavi876 IU/GRsdf96-07VnvtjnwyuMccullough-Hyde Memorial HospitalComment on above:Performed By: #### CBC #### [address] [address]YPJ [Catalytic activity/Vol]10 U/RWom27-08DnxmogxhiMccullough-Hyde Memorial HospitalComment on above:Performed By: #### CBC #### [address] [address]Afxwm gap [Moles/Vol]7 mmol/LNormal4-12Mccullough-Hyde Memorial HospitalComment on above:Performed By: #### CBC #### [address] [address]MBG [Catalytic activity/Vol]19 U/JMmcfth25-09FowuizsdxMccullough-Hyde Memorial HospitalComment on above:Performed By: #### CBC #### [address] [address]Aaob Total0.8 mg/dLNormal0.3-1.2BFort Hamilton Hospital Comment on above:Performed By: #### CBC #### [address] [address]Inoyqhf [Mass/Vol]8.5 mg/dLNormal8.5-10.3Bl[facility] Valley Health SystemComment on above:Performed By: #### CBC #### [address] [address]Nckwoomo [Moles/Vol]95 mmol/SIed95-833HobfilurbMccullough-Hyde Memorial HospitalComment on above:Performed By: #### CBC #### [address] [address]XB6 [Moles/Vol]27 mmol/UOffjkj62-96WjxfslaegMccullough-Hyde Memorial HospitalComment on above:Performed By: #### CBC #### [address] [address]Qwfqccgiwl [Mass/Vol]1.30 mg/dLHigh0.61-1.24Mccullough-Hyde Memorial HospitalComment on above:Performed By: #### CBC #### [address] [address]Lswownu [Mass/Vol]91 mg/fVOujter06-44SurzavenzMccullough-Hyde Memorial HospitalComment on above:Performed By: #### CBC #### [address] [address]Jiyghwcbz [Moles/Vol]3.2 mmol/LLow3.4-4.8BFort Hamilton HospitalComment on above:Performed By: #### CBC #### [address] [address]Cajmsju [Mass/Vol]6.6 g/dLNormal6.5-8.1BFort Hamilton HospitalComment on above:Performed By: #### CBC #### [address] [address]Khvfbt [Moles/Vol]129 mmol/MZai565-643RoyjmnktjMccullough-Hyde Memorial HospitalComment on above:Performed By: #### CBC #### [address] [address]Npcy nitrogen [Mass/Vol]25 mg/dLNormal8-26Mccullough-Hyde Memorial HospitalComment on above:Performed By: #### CBC #### [address] [address]Pexm nitrogen/Creatinine [Mass ratio]19.2 mg/ejFswxyo26.0-20.0 [facility]Hyde Memorial HospitalComment on above:Performed By: #### CBC #### [facility] [address] [place], [place] [address]Hboxjsngii Consultationon 70-31-9456Tvsnevebhe Consultation Chief Complaint Surgery canceled at [facility] due to swollen legs Reason for Consultation Preoperative cardiology evaluation History of Present Illness PCP: Opal Ga DO ([place], [place]) Cardio: Kathy Mcintyre DO ([place], [place]) 83M with permanent AF, CHF, CKD, hypercholesterolemia transferred from [facility] for continued treatment of lower extremity edema and perioperative cardiology evaluation. - Preop cardiology evaluation by Dr. Mcintyre (02/16/24) reported LVEF 50% by echo - Underwent lumbar decompression with fusion by Dr. Man at [facility] on 02/21/24 - Surgery reportedly complicated by decompensated CHF > Family member claims [facility] Hospitalist gave too much IV fluid and didn't give diuretics - Post-op echo reportedly showed LVEF 35-40% (02/23/24) - Discharged to [facility] in [place], [place], for post-acute rehab - Subsequently developed acute urinary retention, LIS, and acute CHF requiring care at [facility] leading to indwelling Chou catheter - Evaluated in spine clinic 03/23 for concern about surgical site drainage - Presented to [facility] 04/13 for planned I&D but procedure canceled due to 3+ lower extremity edema and elevated BNP level - Admitted to [facility] 04/13/24 for treatment of acute on chronic systolic heart failure - NT-pro-BNP elevated at 4117 (normal is <1800) - High sensitivity troponin I elevated with flat trend (121.8, 116.3, 123.1) - CXR (04/13) report describes mild cardiomegaly, hyperinflated lungs, and minimal bibasilar atelectasis - Admitting physician at [place] documented the patient had no shortness of breath, no JVD, and clear lungs on auscultation - Limited echo showed LVEF 45-50% - Documented fluid balance at [facility] on 04/14 and 04/15 (prior to transfer): -3.0 L and -1.7L - Transferred to [facility] for preoperative cardiology evaluation before rescheduling I&D - Patient currently denies chest pain, shortness of breath, cough, orthopnea, palpitations, or lightheadedness - Reportedly has chronic edema for which he has used lymphedema pumps nightly for several years Cardiac Testing Echocardiography > 04/13/24: (Limited) EF 45-50%, mild RV enlargement with mildly reduced systolic function, marked LAE, moderate MARCIA ([facility]) Physical Exam Vitals & Measurements [...] decompensated CHF upon admission to [facility] > Lower extremity edema is [...] with fusion (02/2024) [employer] (more content not included)...NormalMccullough-Hyde Memorial HospitalDiff Autoon 01-69-2440Ihhe Absolute0.1 x10*3/mcLNormal0.0-0.2BFort Hamilton HospitalComment on above:Performed By: #### .Automated Diff ####[address] [address]Znkcjcvgm/100 WBC (Bld)0.7 % Normal0.0-1.2BFort Hamilton HospitalComment on above:Performed By: #### .Automated Diff ####[address] [address]Juo Absolute0.3 x10*3/mcLNormal0.0-0.4BFort Hamilton HospitalComment on above:Performed By: #### .Automated Diff ####[address] [address]Ucyjjeigmij/100 WBC (Bld)3.9 %Normal0.0-6.1 [facility]Hyde Memorial HospitalComment on above:Performed By: #### .Automated Diff ####[address] [address]Fynbx Absolute2.2 x10*3/mcLNormal1.0-4.8BFort Hamilton HospitalComment on above:Performed By: #### .Automated Diff ####[address] [address]Jplzrgfbwct/100 WBC (Bld)25.5 %Low27.2-40.8BFort Hamilton HospitalComment on above:Performed By: #### .Automated Diff ####[address] [address]Yklb Absolute0.6 x10*3/mcLNormal0.3-1.1BFort Hamilton HospitalComment on above:Performed By: #### .Automated Diff ####[address] [address]Vgeyqnzpd/100 WBC (Bld)6.5 %Normal4.7-13.9BFort Hamilton HospitalComment on above:Performed By: #### .Automated Diff ####[address] [address]Sjikvd Absolute5.5 x10*3/mcLNormal1.8-7.7BFort Hamilton HospitalComment on above:Performed By: #### .Automated Diff ####[address] [address]Kxulcw Auto63.4 %Soxwai44.2-70.8BFort Hamilton HospitalComment on above:Performed By: #### .Automated Diff ####[address] [address]ANJS, PCRon 11-83-4366MZG ONLY Result Called?NoNormalMccullough-Hyde Memorial HospitalComment on above: Performed By: #### MG #### [address] [address]Acfqxupgbwu Resistant Staph aurus(MRSA)Not detectedNormalNot DetectedMccullough-Hyde Memorial HospitalComment on above:Result Comment: Mutations or polymorphisms in primer or probe binding regions may affect detectionof new or unknown MRSA variants resulting in a false negative. The [employer] Xpert MRSA Assay is a qualitative in [...] to the clinician.Performed By: #### MG #### [address] [address]Mqgdgyyfcle 63-79-2758Awfgvemld [Mass/Vol]1.9 mg/dLNormal 1.7-2.4BFort Hamilton HospitalComment on above:Performed By: #### MG #### [address] [address]Pgtzqwjcrdsm 81-35-3463Qydlhimwb [Mass/Vol]3.1 mg/dLNormal 2.5-4.6BFort Hamilton HospitalComment on above:Performed By: #### PHOS ####[address] [address]Ksgnbjxr-Mdr 43-32-4492Yqivwqqt I.cardiac [Mass/Vol]ng/mLNormal0.00-0.03Mccullough-Hyde Memorial HospitalComment on above:Result Comment: An increased Troponin-I value, in the absence of myocardial ischemia, may indicate other etiologies of cardiac damage. 99th Percentile Cutoff for Negative/Positive: Negative <= 0.03 Positive >= 0.04Performed By: #### TROP ####[address] [address]Wcnqrbily Auto (Bld) [#/Vol]on 30-56-3538Yohlbelsr (Bld) [#/Vol]Automated basophil count0.0-0.1FMartin Memorial Hospital Basophils/100 WBC Auto (Bld)on 28-71-2096Riyqewjpk/100 WBC (Bld)Automated basophil %0.2-2.0[facility] HospitalCholesterol in LDL Calc [Mass/Vol]on 57-03-0970Bxsyqkwrixi in LDL [Mass/Vol]Cholesterol in LDL [Mass/volume] in Serum or Plasma by calculationOhiohealth O'Bleness Hospital Comment on above:<100 mg/dl UGCUPHR056-550 mg/dl NEAR OR ABOVE OEYPOKN988-088 mg/dl BORDERLINE UBZY480-762 mg/dl HIGH>190 mg/dl VERY HIGHCholesterol in VLDL Calc [Mass/Vol]on 31-08-8702Edooiuenylm in VLDL [Mass/Vol]Cholesterol in VLDL [Mass/volume] in Serum or Plasma by calculationOhiohealth O'Bleness Hospital Eosinophils/100 WBC Auto (Bld)on 10-29-8200Tpylschywqb/100 WBC (Bld)Automated eosinophil %0.9-7.0[facility] HospitalErythrocyte distribution width Auto (RBC) [Ratio]on 00-17-4735Nkimlxptlnn distribution width (RBC) [Ratio]Erythrocyte distribution width [Ratio] by Automated count11.0-15.0 [facility] HospitalEstimated glomerular filtration rate (GFR) non- Americanon 94-77-5323DCZ/1.73 sq M.predicted among non-blacks MDRD (S/P/Bld) [Vol rate/Area]Estimated glomerular filtration rate (GFR) non- AmericanLow>=60 mL/min/1.73m 2FMartin Memorial HospitalGlobulin Calc (S) [Mass/Vol]on 62-05-3332Aecapfis (S) [Mass/Vol]Serum globulin measurement by calculation (mass/volume)[facility] HospitalHematocrit Auto (Bld) [Volume fraction]on 79-92-0521Iopmnarlhs (Bld) [Volume fraction]Hematocrit [Volume Fraction] of Blood by Automated luabcGmg51.0-54.0[facility] HospitalHemoglobin [Mass/volume] in Bloodon 73-09-0865Dcyfwpsoqg (Bld) [Mass/Vol]Hemoglobin [Mass/volume] in SrfmtHea93.0-18.0[facility] HospitalLaboratory - Chemistry and Chemistry - challengeon 04-14-2024 Bilirubin Ql (U)NegativeNEGATIVEOhiohealth O'Bleness HospitalGlucose (U) [Mass/Vol]NegativeNEGATIVEOhiohealth O'Bleness HospitalKetones Ql (U) NegativeNEGATIVEOhiohealth O'Bleness HospitalpH (U)6.5 [pH]5.0-9.0[facility] District Hospitalpecific gravity (U) [Rel density]1.0101.005-1.025 [facility] HospitalUrobilinogen Qn (U)0.2 {Raghu'U}/dL0.2-1.0 [facility] HospitalAlbumin [Mass/Vol]2.2 g/dLLow3.4-5.0[facility] HospitalALP [Catalytic activity/Vol]104 U/H35-130FpcccvlnkOhiohealth O'Bleness HospitalALT [Catalytic activity/Vol]8 U/EGde44-70PdynlhubjOhiohealth O'Bleness HospitalAST [Catalytic activity/Vol]18 U/H01-71SgusrtjuhOhiohealth O'Bleness HospitalBilirubin [Mass/Vol]0.4 mg/dL0.2-1.0[facility] HospitalCalcium [Mass/Vol]8.6 mg/dL8.5-10.1FMartin Memorial Hospital Chloride [Moles/Vol]100 mmol/P69-594IyxszeqhqOhiohealth O'Bleness HospitalCholesterol [Mass/Vol]107 mg/dL<=200Ohio[facility] HospitalCholesterol in HDL [Mass/Vol]48 mg/gP44-04WkrvlnhrhOhiohealth O'Bleness HospitalComment on above:> or =60 mg/dl - LOW CARDIOVASCULAR RISK<40 mg/dl - HIGH CARDIOVASCULAR RISKCO2 [Moles/Vol]29.7 mmol/L21.0-32.0[facility] HospitalCreatinine [Mass/Vol]1.43 mg/dLHigh0.70-1.30[facility]leness HospitalGFR/1.73 sq M.predicted MDRD (S/P/Bld) [Vol rate/Area]57 mL/min/{1.73_m2}Low>=60 mL/min/1.73m 2FMartin Memorial HospitalGlucose [Mass/Vol]73 mg/dLLow 74-106Ohio[facility] HospitalMagnesium [Mass/Vol]1.8 mg/dL1.8-2.4 [facility] HospitalNatriuretic peptide B (Bld) [Mass/Vol]4117.0 pg/mLCritically high<=1800.0[facility] HospitalComment on above: RESULTS CALLED TO LORENZA VELAZQUEZ,RNPotassium [Moles/Vol]3.6 mmol/L3.5-5.1 [facility] HospitalProtein [Mass/Vol]6.2 g/dLLow6.4-8.2FUC West Chester Hospitalodium [Moles/Vol]138 mmol/D854-432PpenscguoOhiohealth O'Bleness HospitalTriglyceride [Mass/Vol]61 mg/dL<=150Ohio[facility]leness HospitalTSH Qn10.469 m[IU]/LHigh0.358-3.740[facility] HospitalUrea nitrogen [Mass/Vol]22.0 mg/dLHigh7.0-18.0[facility] HospitalUrea nitrogen/Creatinine [Mass ratio]15.4 mg/mgOhiohealth O'Bleness Hospital Laboratory - Hematology and Cell countson 01-24-5577Ozhnogcl granulocytes/100 WBC (Bld)0.3 %0.0-0.5FMartin Memorial HospitalLaboratory - Specimen informationon 85-42-1473Wtjlascgvk (U)CLEARCLEARFMartin Memorial HospitalColor (U)LT. YELLOWYELLOWOhiohealth O'Bleness HospitalLaboratory - Urinalysison 75-67-1945Wqjxppass esterase Test strip Ql (U)MODERATEAbnormal NEGATIVEOhiohealth O'Bleness HospitalMucus Ql (Urine sed)NONE SEENNONE SEEN [facility] HospitalNitrite Ql (U)NegativeNEGATIVEOhiohealth O'Bleness HospitalProtein Ql (U)NegativeNEG/TRACEOhiohealth O'Bleness HospitalLeukocytes [#/volume] corrected for nucleated erythrocytes in Blood by Automated counon 90-76-4642RBU corrected for nucl RBC Auto (Bld) [#/Vol] Leukocytes [#/volume] corrected for nucleated erythrocytes in Blood by Automated coun4.0-11.0[facility] HospitalLymphocytes Auto (Bld) [#/Vol]on 42-67-0863Dtvevjhmodx (Bld) [#/Vol]Lymphocytes [#/volume] in Blood by Automated count1.2-3.8[facility]leness HospitalLymphocytes/100 WBC Auto (Bld)on 05-20-6657Tofkpfnoufe/100 WBC (Bld)Lymphocytes/100 leukocytes in Blood by Automated count20.5-60.0[facility]'Bleness HospitalMCH Auto (RBC) [Entitic mass]on 70-47-0484XSS (RBC) [Entitic mass]MCH [Entitic mass] by Automated count 25.9-34.0[facility]'Bleness HospitalMCHC Auto (RBC) [Mass/Vol]on 51-99-9623XZLX (RBC) [Mass/Vol]MCHC [Mass/volume] by Automated count29.9-35.2 [facility] HospitalMCV Auto (RBC) [Entitic vol]on 43-85-4621ARO (RBC) [Entitic vol]MCV [Entitic volume] by Automated xajpgDxob08.0-94.0[facility] HospitalMonocytes Auto (Bld) [#/Vol]on 13-49-7404Dmttwqjqk (Bld) [#/Vol]Automated blood monocyte count0.3-0.8[facility] Monocytes/100 WBC Auto (Bld)on 89-06-3979Yqsmlqmsn/100 WBC (Bld)Automated monocyte %1.7-12.0[facility]len[facility] HospitalNeutrophils Auto (Bld) [#/Vol]on 54-11-3226Agmukqtmsrf (Bld) [#/Vol]Neutrophils [#/volume] in Blood by Automated count1.4-6.5FMartin Memorial HospitalNeutrophils/100 WBC Auto (Bld)on 96-76-2805Ajvlxczbbfi/100 WBC (Bld)Automated neutrophil %43.0-75.0 [facility] HospitalNo Panel Informationon 03-64-1538Slabx Bacteria SMALL #/HPFAbnormalNONE SEENOhiohealth O'Bleness HospitalUrine Culture ReflexedALREADY ORDEREDOhiohealth O'Bleness HospitalUrine Occult Blood NegativeNEGATIVEOhiohealth O'Bleness HospitalUrine Other CastsNONE SEEN #/LPFNONE [facility] Clinic FoundationUrine Other CrystalsNone Seen #/HPFNone [facility] HospitalUrine RBCNONE SEEN #/HPF0-2 [facility]'Bleness HospitalUrine Squamous Epithelial CellsNONE SEEN #/LPF NONE/RAREOhiohealth O'Bleness HospitalUrine CIZ97-36 #/HPFAbnormalNONE SEEN [facility] HospitalALREADY ORDEREDOhiohealth O'Bleness HospitalNONE SEEN #/LPFNONE/RAREOhiohealth O'Bleness HospitalNone Seen #/HPF 0-2FUC [facility] Chester HospitalMALL #/HPFAbnormalNONE SEENOhiohealth O'Bleness HospitalNegativeNEG/TRACEOhiohealth O'Bleness HospitalCLEAR CLEAROhiohealth O'Bleness HospitalLT. YELLOWYELLOWOhiohealth O'Bleness HospitalMODERATEAbnormalNEGATIVEOhiohealth O'Bleness HospitalNONE SEENNONE SEENOhiohealth O'Bleness Hospital6.55.0-9.0[facility] 1.0101.005-1.025[facility]0.2 EU/dL0.2-1.0[facility]10-20 #/HPFAbnormalVALLEY HOSPITALE Cleveland Clinic FoundationTroponin I High Wdrjpndihui717.8 pg/mLCritically high4.0-76.1FMartin Memorial HospitalComment on above:RESULTS CALLED TO Yoli [...] CONJUNCTIONWITH OTHER DIAGNOSTIC AND CLINICAL INFORMATION.121.8 pg/mLCritically high4.0-76.1FMartin Memorial Hospital Eosinophils # (Auto)0.4 10 3/uL0.0-0.7FMartin Memorial HospitalImmature Granulocyte # (Auto)0.02 10 3/uL0.00-0.03[facility]10.469 u[iU]/mLHigh0.358-3.740[facility]4117.0 pg/mLCritically high<=1800.0[facility]1.8 mg/dL1.8-2.4FMartin Memorial Hospital107 mg/dL<=200[facility]48 mg/dL40-60 [facility]2.2 g/dLLow3.4-5.0[facility]0.4 10 3/uL0.0-0.7FMartin Memorial Hospital104 U/K49-703ToetrnlsjOhiohealth O'Bleness Hospital61 mg/dL<=150[facility]8 U/LLow 16-63[facility]18 U/S89-01DtomqnxtrOhiohealth [facility]15.4FMartin Memorial Hospital0.02 10 3/uL0.00-0.03[facility]22.0 mg/dLHigh7.0-18.0[facility] 0.3 %0.0-0.5FMartin Memorial Hospital8.6 mg/dL8.5-10.1FMartin Memorial Hospital100 mmol/N86-675YbqmgfobmOhiohealth [facility]29.7 mmol/L 21.0-32.0[facility]1.43 mg/dLHigh0.70-1.30[facility]57Low>=60 mL/min/1.73m 2FMartin Memorial Hospital 73 mg/yDYzx20-887RjqmoohacOhiohealth O[facility] Hospital3.6 mmol/L3.5-5.1FMartin Memorial Hospital138 mmol/G173-994EbwdddighOhiohealth O'[facility] Hospital0.4 mg/dL0.2-1.0[facility]6.2 g/dLLow6.4-8.2FMartin Memorial HospitalPlatelet mean volume Auto (Bld) [Entitic vol]on 90-70-7685Ceeovcfx mean volume (Bld) [Entitic vol]Platelet mean volume [Entitic volume] in Blood by Automated countLow9.5-13.5FMartin Memorial Hospital Platelets Auto (Bld) [#/Vol]on 17-79-7840Sjunumpxe (Bld) [#/Vol]Platelets [#/volume] in Blood by Automated jdwic532-607HdkvevcetOhiohealth O'[facility] Hospital RBC Auto (Bld) [#/Vol]on 93-96-0391MNA (Bld) [#/Vol]Erythrocytes [#/volume] in Blood by Automated countLow4.70-6.10[facility] Hospitalerum or plasma albumin/globulin mass ratioon 97-11-8347Fvdwfrn/Globulin [Mass ratio] Serum or plasma albumin/globulin mass ratioOhiohealth O'Bleness Hospital Serum or plasma anion gap determinationon 42-24-8968Hfygq gap [Moles/Vol]Serum or plasma anion gap determinationHighland District Hospitalerum or plasma total cholesterol/high density lipoprotein (HDL) cholesterol mass william 94-00-4295Pslvbierdee.total/Cholesterol in HDL [Mass ratio]Serum or plasma total cholesterol/high density lipoprotein (HDL) cholesterol mass ratOhiohealth O'Bleness HospitalComment on above:3.3 - 4.4 LOW RISK4.4 - 7.1 AVERAGE RISK7.1 - 11.0 MODERATE RISK>11.0 HIGH RISKActivated partial thromboplastin time (aPTT) in platelet poor plasma by coagulation aon 71-89-1496vDOH Coag (PPP) [Time]Activated partial thromboplastin time (aPTT) in platelet poor plasma by coagulation a22.3-36.2FMartin Memorial HospitalBasophils Auto (Bld) [#/Vol]on 74-65-5569Hnrqogwpq (Bld) [#/Vol]Automated basophil count0.0-0.1 [facility] HospitalBasophils/100 WBC Auto (Bld)on 04-13-2024 Basophils/100 WBC (Bld)Automated basophil %0.2-2.0[facility] HospitalEosinophils/100 WBC Auto (Bld)on 27-00-7228Xqmjtudzxbj/100 WBC (Bld) Automated eosinophil %0.9-7.0[facility] HospitalErythrocyte distribution width Auto (RBC) [Ratio]on 36-87-9901Zzsxazwogye distribution width (RBC) [Ratio]Erythrocyte distribution width [Ratio] by Automated count11.0-15.0 [facility] HospitalEstimated glomerular filtration rate (GFR) non- Americanon 43-27-5491CWQ/1.73 sq M.predicted among non-blacks MDRD (S/P/Bld) [Vol rate/Area]Estimated glomerular filtration rate (GFR) non- AmericanLow>=60 mL/min/1.73m 2FMartin Memorial HospitalGlobulin Calc (S) [Mass/Vol]on 58-13-5423Bysacgln (S) [Mass/Vol]Serum globulin measurement by calculation (mass/volume)[facility] HospitalHematocrit Auto (Bld) [Volume fraction]on 66-82-8837Zatctonqjp (Bld) [Volume fraction]Hematocrit [Volume Fraction] of Blood by Automated xoyrsOvl80.0-54.0[facility] HospitalHemoglobin [Mass/volume] in Bloodon 59-74-7200Yblbtlvbyr (Bld) [Mass/Vol]Hemoglobin [Mass/volume] in RcasyEet21.0-18.0[facility] HospitalINR in Platelet poor plasma by Coagulation assayon 32-44-2276SDA Coag (PPP) [Relative time]INR in Platelet poor plasma by Coagulation assay [facility] HospitalComment on above:DESIRED INR:2.0-3.0 CONDITIONS NOT LISTED BELOW2.5-3.5 FOR PROSTHETIC HEART VALVE REPLACEMENT2.5-3.5 RECURRENT THROMBOSISLaboratory - Chemistry and Chemistry - challengeon 08-06-9147Rfcbggr [Mass/Vol]2.5 g/dLLow3.4-5.0[facility] HospitalALP [Catalytic activity/Vol]118 U/PXigk81-600EgixiizaoOhiohealth O'Bleness HospitalALT [Catalytic activity/Vol]10 U/NYlg47-17KlpxqbyejOhiohealth O'Bleness HospitalAST [Catalytic activity/Vol]25 U/I34-40FeqwommfrOhiohealth O'Bleness HospitalBilirubin [Mass/Vol]0.5 mg/dL0.2-1.0[facility] HospitalCalcium [Mass/Vol]8.9 mg/dL 8.5-10.1FMartin Memorial HospitalChloride [Moles/Vol]99 mmol/L98-107 [facility] HospitalCO2 [Moles/Vol]31.5 mmol/L21.0-32.0[facility] HospitalCreatinine [Mass/Vol]1.62 mg/dLHigh0.70-1.30[facility] HospitalGFR/1.73 sq M.predicted MDRD (S/P/Bld) [Vol rate/Area]50 mL/min/{1.73_m2}Low>=60 mL/min/1.73m 2FMartin Memorial HospitalGlucose [Mass/Vol]80 mg/lW87-802UdhpdmjqvOhiohealth O'Bleness HospitalNatriuretic peptide B (Bld) [Mass/Vol]2978.0 pg/mLCritically high<=1800.0[facility] HospitalComment on above:RESULTS CALLED TO MARIA INES CARUSO RN IN SURGERY BY Ivis Tobias at 1053Potassium [Moles/Vol]4.5 mmol/L3.5-5.1FMartin Memorial HospitalProtein [Mass/Vol]6.9 g/dL6.4-8.2FMartin Memorial Hospital Sodium [Moles/Vol]137 mmol/B065-500ZivciytyoOhiohealth O'Bleness HospitalUrea nitrogen [Mass/Vol]21.0 mg/dLHigh7.0-18.0[facility] HospitalUrea nitrogen/Creatinine [Mass ratio]13.0 mg/mgOhiohealth O'[facility] Hospital Laboratory - Hematology and Cell countson 30-06-3369Fhjwvzhw granulocytes/100 WBC (Bld)0.3 %0.0-0.5FMartin Memorial HospitalLeukocytes [#/volume] corrected for nucleated erythrocytes in Blood by Automated counon 62-77-1084VXP corrected for nucl RBC Auto (Bld) [#/Vol]Leukocytes [#/volume] corrected for nucleated erythrocytes in Blood by Automated coun4.0-11.0[facility] HospitalLymphocytes Auto (Bld) [#/Vol]on 58-83-9771Dmseakupmex (Bld) [#/Vol]Lymphocytes [#/volume] in Blood by Automated count1.2-3.8[facility] HospitalLymphocytes/100 WBC Auto (Bld)on 04-13-2024 Lymphocytes/100 WBC (Bld)Lymphocytes/100 leukocytes in Blood by Automated count 20.5-60.0[facility] HospitalMCH Auto (RBC) [Entitic mass]on 53-21-9102EEI (RBC) [Entitic mass]MCH [Entitic mass] by Automated count25.9-34.0 [facility] HospitalMCHC Auto (RBC) [Mass/Vol]on 00-52-8320XHAI (RBC) [Mass/Vol]MCHC [Mass/volume] by Automated count29.9-35.2FMartin Memorial HospitalMCV Auto (RBC) [Entitic vol]on 85-85-4825JHU (RBC) [Entitic vol] MCV [Entitic volume] by Automated sltglAhca74.0-94.0[facility] HospitalMonocytes Auto (Bld) [#/Vol]on 64-60-6290Adssrsamp (Bld) [#/Vol]Automated blood monocyte count0.3-0.8[facility] HospitalMonocytes/100 WBC Auto (Bld)on 89-50-9312Gsbowycnk/100 WBC (Bld)Automated monocyte %1.7-12.0 [facility] HospitalNeutrophils Auto (Bld) [#/Vol]on 04-13-2024 Neutrophils (Bld) [#/Vol]Neutrophils [#/volume] in Blood by Automated count 1.4-6.5FMartin Memorial HospitalNeutrophils/100 WBC Auto (Bld)on 34-29-2574Bvapzabbsby/100 WBC (Bld)Automated neutrophil %43.0-75.0[facility] HospitalNo Panel Informationon 63-75-4348Xydbqhaantn # (Auto)0.4 10 3/uL0.0-0.7FMartin Memorial HospitalImmature Granulocyte # (Auto)0.02 10 3/uL0.00-0.03[facility] HospitalTroponin I High Sensitivity 123.1 pg/mLCritically high4.0-76.1FMartin Memorial HospitalComment on above:RESULTS CALLED TO Yoli [...] OTHER DIAGNOSTIC AND CLINICAL INFORMATION.123.1 pg/mLCritically high4.0-76.1 [facility]2978.0 pg/mLCritically high<=1800.0[facility]0.4 10 3/uL0.0-0.7FMartin Memorial Hospital2.5 g/dLLow3.4-5.0[facility]118 U/FZjpw48-203WtgnfdxxfOhiohealth [facility]10 U/CDdp98-98UxapnpdziOhiohealth [facility]25 U/L 15-37[facility]0.02 10 3/uL0.00-0.03[facility]13.0[facility]0.3 %0.0-0.5FMartin Memorial Hospital21.0 mg/dLHigh7.0-18.0[facility] 8.9 mg/dL8.5-10.1FMartin Memorial Hospital99 mmol/C17-130CkysynljtOhiohealth O'[facility] Hospital31.5 mmol/L21.0-32.0[facility]1.62 mg/dLHigh0.70-1.30[facility]50Low>=60 mL/min/1.73m 2 [facility]80 mg/fE42-404WlulxgulpOhiohealth [facility] 4.5 mmol/L3.5-5.1FMartin Memorial Hospital137 mmol/A967-540EzlgxpwjmOhiohealth [facility] Hospital0.5 mg/dL0.2-1.0[facility]6.9 g/dL 6.4-8.2FMartin Memorial HospitalPlatelet mean volume Auto (Bld) [Entitic vol]on 28-61-1981Onuholol mean volume (Bld) [Entitic vol]Platelet mean volume [Entitic volume] in Blood by Automated count9.5-13.5FMartin Memorial HospitalPlatelets Auto (Bld) [#/Vol]on 17-97-0374Nfqqlzmpw (Bld) [#/Vol]Platelets [#/volume] in Blood by Automated caror381-831AmcujialpOhiohealth O'[facility] Hospital Prothrombin time (PT)on 72-27-5847WH Coag (PPP) [Time]Prothrombin time (PT)High 9.0-11.6FMartin Memorial HospitalRBC Auto (Bld) [#/Vol]on 40-52-7290CFJ (Bld) [#/Vol]Erythrocytes [#/volume] in Blood by Automated countLow4.70-6.10 [facility] Hospitalerum or plasma albumin/globulin mass ratioon 74-32-5330Lbldpvg/Globulin [Mass ratio]Serum or plasma albumin/globulin mass ratioHighland District Hospitalerum or plasma anion gap determinationon 26-50-6090Wcqrz gap [Moles/Vol]Serum or plasma anion gap determinationOhiohealth O'Bleness HospitalMagnetic resonance imaging reportOrdered By: Palmer Dejesus on 34-08-9602Zduuh reportST. VINCENT [facility] [place] [address] [place] [address] MRI Report Signed Patient: Tavo Wallis Jr MR# : [id number] : 1940 Acct:[id number] Age/Sex: 83 / M ADM Date: 5 Loc: MR Room: Type: [facility] Attending Dr: Randi Batista MD Copies to: Randi Burris MD~ Ordering Provider: Randi Burris MD Date of Service: 04/03/24 MR/MR lumbar spine wo con: Z47.89 ([id number]) XR/XR pre/post mri xray: PRE AND POST [...] the foraminal and extraforaminal and lateral zone. Cffijvou-tz-qwtuwv right and at least moderate left neural [...] No central canal or neural from narrowing. Znjz-mj-nwajcjbp facet degeneration. MR/MR lumbar spine wo con [...] Palmer Dejesus M.D.04/03/2024 5:02 PM Dictation Location: [facility]--23 Transcribed By: [facility] 04/03/241701 Dictated By: Palmer Dejesus MD 04/03/24 1630 Signed By: 04/03/241701 [facility] Work Phone: xr pre/post mri xrayon 82-47-2547SR pre/post mri xray NormalThe [facility] Medical CenterBasic Metabolic Panelon 58-10-2191Svqqm gap [Moles/Vol]12.7 mmol/LNormal6.0-15.0The [facility] Medical CenterComment on above:Performed By: #### BMP ####[address] [place] [address] USACalcium [Mass/Vol]8.2 mg/dLLow8.6-10.3The [facility] Medical CenterComment on above:Performed By: #### BMP ####[address] [place] [address] USAChloride [Moles/Vol]93 mmol/L Sko27-798Uud [facility] CenterComment on above:Performed By: #### BMP ####[address] [place] [address] USACO2 [Moles/Vol]30.7 mmol/UIqphml08.0-31.0The [facility] Medical CenterComment on above:Performed By: #### BMP ####[address] [place] [address] USACreatinine [Mass/Vol]2.22 mg/dLHigh0.70-1.30The [facility] Medical CenterComment on above:Performed By: #### BMP ####[address] [place] [address] USACreatinine Clr Calc Xmhnuaod52.04NoAsheville Specialty Hospital Physician GroupComment on above:Result Comment: PERFORMED BY:[address] [place], [place] [phone] MEDICAL DIRECTORJAJA CATES M.D. Performed By: #### BMP ####[address] [address] USAEstimated GFR28.859 mL/MinNoAsheville Specialty Hospital Physician GroupComment on above:Performed By: #### BMP ####[address] [address] USAGlucose [Mass/Vol]73 mg/dL Pjknyz35-845Xgz [facility] Physician GroupComment on above:Result Comment: Random Glucose Reference Range is dependent on time and content of last meal. Glucose of more than 200 mg/dL in a nonstressed, ambulatory subject supports the diagnosis of Diabetes Mellitus. ADA recommended reference rangePerformed By: #### BMP ####[address] [address] USAPotassium [Moles/Vol]3.4 mmol/LLow3.5-5.1The [facility] Physician GroupComment on above:Performed By: #### BMP ####[address] [address] USASodium [Moles/Vol]133 mmol/RGty398-590Cce [facility] Physician GroupComment on above:Performed By: #### BMP ####[address] [address] USAUrea nitrogen [Mass/Vol]40 mg/dLHigh7-25The [facility] Physician GroupComment on above:Performed By: #### BMP ####[address] [address] [place] Calcium [Mass/volume] in Serum or PlasmaOrdered By: Michele Knight on 03-15-2024 Calcium [Mass/Vol]Calcium [Mass/volume] in Serum or PlasmaLow8.6-10.3FMartin Memorial HospitalCarbon dioxide, total [Moles/volume] in Serum or Plasma Ordered By: Michele Knight on 50-24-7564EX1 [Moles/Vol]Carbon dioxide, total [Moles/volume] in Serum or Wwfpxb57.0-31.0[facility] Chloride [Moles/volume] in Serum or PlasmaOrdered By: Michele Knight on 03-15-2024 Chloride [Moles/Vol]Chloride [Moles/volume] in Serum or ObiwaaGim89-421WrdhhcetcOhiohealth O'Blen[facility] HospitalCreatinine [Mass/volume] in Serum or PlasmaOrdered By: Michele Knight on 42-58-7438Dacpkhzvzg [Mass/Vol]Creatinine [Mass/volume] in Serum or PlasmaHigh0.70-1.30[facility] HospitalGlucose [Mass/volume] in Serum or PlasmaOrdered By: Michele Knight on 14-60-4196Iuavuno [Mass/Vol]Glucose [Mass/volume] in Serum or Czwjlf57-612GkjiaujtsOhiohealth O'Bleness HospitalComment on above:ADA recommended reference rangeRandom Glucose Reference Range is dependent on time and content of last meal. Glucose of more than 200 mg/dL in a nonstressed, ambulatory subject supports the diagnosisof Diabetes Mellitus.No Panel InformationOrdered By: Michele Knight on 68-54-6546Pztbsxhgx GFR (CKD-EPI) 28.859 mL/MinOhiohealth O'Bleness HospitalPharmacy Creatinine Clearance (Chem26.04[facility]28.859 mL/MinOhiohealth O'[facility]ess Hospital26.04[facility] HospitalPotassium [Moles/volume] in Serum or PlasmaOrdered By: Michele Knight on 65-48-2281Oqyvgczbf [Moles/Vol] Potassium [Moles/volume] in Serum or PlasmaLow3.5-5.1FUC West Chester Hospitalerum or plasma anion gap determinationOrdered By: Michele Knight on 30-18-8300Ksgbl gap [Moles/Vol]Serum or plasma anion gap determination6.0-15.0 [facility] Hospitalodium [Moles/volume] in Serum or PlasmaOrdered By: Michele Knight on 12-01-5708Aihtbd [Moles/Vol]Sodium [Moles/volume] in Serum or SyvbejZqh951-093HrptilsuiOhiohealth O'Bleness HospitalUrea nitrogen [Mass/volume] in Serum or PlasmaOrdered By: Michele Knight on 86-86-1712Setr nitrogen [Mass/Vol] Urea nitrogen [Mass/volume] in Serum or PlasmaHigh7-25[facility] HospitalBasic Metabolic Panelon 77-47-8256Udkxl gap [Moles/Vol]11.4 mmol/LNormal 6.0-15.0The [facility] Physician GroupComment on above:Performed By: #### BMP ####[address] [address] USACalcium [Mass/Vol]8.1 mg/dLLow8.6-10.3The [facility] Physician GroupComment on above: Performed By: #### BMP ####[address] [address] USAChloride [Moles/Vol]93 mmol/JCfz39-867Gaa [facility] Physician GroupComment on above:Performed By: #### BMP ####[address] [address] USACO2 [Moles/Vol]29.7 mmol/L Bozxku11.0-31.0The [facility] Physician GroupComment on above:Performed By: #### BMP ####[address] [address] [place] Creatinine [Mass/Vol]2.39 mg/dLHigh0.70-1.30The [facility] Physician GroupComment on above:Performed By: #### BMP ####[address] [address] USACreatinine Clr Calc Uuwplhhx50.73NormOhio State University Wexner Medical Centere Formerly [facility] Physician GroupComment on above:Result Comment: PERFORMED BY:[address] [place], [place] [phone] MEDICAL DIRECTORJAJA CATES M.D.Performed By: #### BMP ####[address] [address] USAEstimated GFR26.413 mL/Min NormalThe Formerly [facility] Physician GroupComment on above:Performed By: #### BMP ####[address] [address] USAGlucose [Mass/Vol]80 mg/kOGdgzrl32-435Zdv [facility] Physician GroupComment on above: Result Comment: Random Glucose Reference Range is dependent on time and content of last meal. Glucose of more than 200 mg/dL in a nonstressed, ambulatory subject supports the diagnosis of Diabetes Mellitus. ADA recommended reference rangePerformed By: #### BMP ####[address] [address] USAPotassium [Moles/Vol]3.1 mmol/LLow3.5-5.1The [facility] Physician GroupComment on above:Performed By: #### BMP ####[address] [address] USASodium [Moles/Vol]131 mmol/GZfl783-183Jii [facility] Physician GroupComment on above:Performed By: #### BMP ####[address] [address] USAUrea nitrogen [Mass/Vol]41 mg/dLHigh7-25The [facility] Physician GroupComment on above:Performed By: #### BMP ####[address] [address] USABasic Metabolic Panelon 31-09-3836Coonu gap [Moles/Vol]11.2 mmol/LNormal6.0-15.0The [facility] Physician GroupComment on above:Performed By: #### BMP ####[address] [address] USACalcium [Mass/Vol]8.7 mg/dLNormal8.6-10.3The [facility] Physician GroupComment on above:Performed By: #### BMP ####[address] [address] USAChloride [Moles/Vol] 91 mmol/OOmr39-600Uua [facility] Physician GroupComment on above:Performed By: #### BMP ####[address] [place] [address] USACO2 [Moles/Vol]30.0 mmol/XQryyli19.0-31.0The [facility] Physician GroupComment on above:Performed By: #### BMP ####[address] [address] USACreatinine [Mass/Vol]2.27 mg/dLHigh0.70-1.30The [facility] Physician GroupComment on above:Performed By: #### BMP ####[address] [address] USACreatinine Clr Calc Fqgmygmy17.95NoAsheville Specialty Hospital Physician GroupComment on above:Result Comment: PERFORMED BY:[address] [place], [place] [phone] MEDICAL DIRECTORJAJA CATES M.D. Performed By: #### BMP ####[address] [address] USAEstimated GFR28.097 mL/MinNoAsheville Specialty Hospital Physician [facility] HospitalComment on above:Performed By: #### BMP ####[address] [address] USAGlucose [Mass/Vol]143 mg/dL Ibij25-367Ohg [facility] Physician GroupComment on above:Result Comment: Random Glucose Reference Range is dependent on time and content of last meal. Glucose of more than 200 mg/dL in a nonstressed, ambulatory subject supports the diagnosis of Diabetes Mellitus. ADA recommended reference rangePerformed By: #### BMP ####[address] [address] USAPotassium [Moles/Vol]3.2 mmol/LLow3.5-5.1The [facility] Physician GroupComment on above:Performed By: #### BMP ####[address] [address] USASodium [Moles/Vol]129 mmol/HZdm320-625Jnv [facility] Physician GroupComment on above:Performed By: #### BMP ####[address] [place] [address] USAUrea nitrogen [Mass/Vol]36 mg/dLHigh7-25The [facility] Physician GroupComment on above:Performed By: #### BMP ####[address] [address] [facility] Basic Metabolic Panelon 57-89-5151Ppsjx gap [Moles/Vol]10.1 mmol/LNormal6.0-15.0 The [facility] Physician GroupComment on above:Performed By: #### BMP ####[address] [address] USACalcium [Mass/Vol]8.4 mg/dLLow8.6-10.3The [facility] Physician GroupComment on above: Performed By: #### BMP ####[address] [address] USAChloride [Moles/Vol]96 mmol/GRwz41-254Tgo [facility] Physician GroupComment on above:Performed By: #### BMP ####[address] USACO2 [Moles/Vol]29.5 mmol/L Fscwxm98.0-31.0The [facility] Physician GroupComment on above:Performed By: #### BMP ####[address] [address] [place] Creatinine [Mass/Vol]2.33 mg/dLHigh0.70-1.30The [facility] Physician GroupComment on above:Performed By: #### BMP ####[address] [address] USACreatinine Clr Calc Arjmenig03.07NormalThe [facility] Physician GroupComment on above:Result Comment: PERFORMED BY:[address] [place], [place] [phone] MEDICAL DIRECTORJAJA CATES M.D.Performed By: #### BMP ####[address] [address] USAEstimated GFR27.232 mL/Min NormalThe [facility] Physician GroupComment on above:Performed By: #### BMP ####[address] [address] USAGlucose [Mass/Vol]79 mg/yMNdfgci03-414Wub [facility] Physician GroupComment on above: Result Comment: Random Glucose Reference Range is dependent on time and content of last meal. Glucose of more than 200 mg/dL in a nonstressed, ambulatory subject supports the diagnosis of Diabetes Mellitus. ADA recommended reference rangePerformed By: #### BMP ####[address] USAPotassium [Moles/Vol]3.6 mmol/LNormal3.5-5.1The [facility] Physician GroupComment on above:Performed By: #### BMP ####[address] USASodium [Moles/Vol]132 mmol/ILgi724-163Src [facility] Physician GroupComment on above:Performed By: #### BMP ####[address] [address] USAUrea nitrogen [Mass/Vol]35 mg/dLHigh7-25The [facility] Physician GroupComment on above:Performed By: #### BMP ####[address] [address] USABasic Metabolic Panelon 40-75-1982Ghqpy gap [Moles/Vol]11.8 mmol/LNormal6.0-15.0The [facility] Physician GroupComment on above:Performed By: #### BMP ####[address] USACalcium [Mass/Vol]8.3 mg/dLLow8.6-10.3The [facility] Physician GroupComment on above:Performed By: #### BMP ####[address] [address] USAChloride [Moles/Vol]100 mmol/L Ozbtvr28-278Eta [facility] Physician GroupComment on above:Performed By: #### BMP ####[address] [address] USACO2 [Moles/Vol]28.4 mmol/WIauuox72.0-31.0The [facility] Physician GroupComment on above:Performed By: #### BMP ####[address] [address] USACreatinine [Mass/Vol]2.69 mg/dLHigh0.70-1.30The [facility] Physician GroupComment on above:Performed By: #### BMP ####[address] USACreatinine Clr Calc Mxtukzle89.96NormColumbia Miami Heart Institute Physician GroupComment on above:Result Comment: PERFORMED BY:[address] [place], [place] [phone] MEDICAL DIRECTORJAJA CATES M.D. Performed By: #### BMP ####[address] [address] USAEstimated GFR22.919 mL/MinNoAsheville Specialty Hospital Physician [facility] HospitalComment on above:Performed By: #### BMP ####[address] [address] USAGlucose [Mass/Vol]97 mg/dL Jkxdcr08-047Nul [facility] Physician [facility] HospitalComment on above:Result Comment: Random Glucose Reference Range is dependent on time and content of last meal. Glucose of more than 200 mg/dL in a nonstressed, ambulatory subject supports the diagnosis of Diabetes Mellitus. ADA recommended reference rangePerformed By: #### BMP ####[address] [address] USAPotassium [Moles/Vol]4.2 mmol/LNormal3.5-5.1The [facility] Comment on above:Performed By: #### BMP ####[address] [address] USASodium [Moles/Vol]136 mmol/UIypkkj527-935Blu [facility] Physician [facility] HospitalComment on above:Performed By: #### BMP ####[address] USAUrea nitrogen [Mass/Vol]39 mg/dLHigh7-25The [facility] Physician GroupComment on above: Performed By: #### BMP ####[facility] [place] [address] USAAlanine aminotransferase [Enzymatic activity/volume] in Serum or PlasmaOrdered By: Marcos Martin on 75-83-8319YAX [Catalytic activity/Vol]Alanine aminotransferase [Enzymatic activity/volume] in Serum or Plasma7-52[facility] HospitalAlbumin [Mass/volume] in Serum or Plasma by Bromocresol green (BCG) dye binding methoOrdered By: Marcos Martin on 15-88-2854Ndjzedp BCG dye [Mass/Vol]Albumin [Mass/volume] in Serum or Plasma by Bromocresol green (BCG) dye binding methoLow3.5-5.7FMartin Memorial HospitalAlkaline phosphatase [Enzymatic activity/volume] in Serum or PlasmaOrdered By: Marcos Martin on 01-99-9434HSO [Catalytic activity/Vol]Alkaline phosphatase [Enzymatic activity/volume] in Serum or RvmpwvOtis17-571UhouhtxmmOhiohealth O'Bleness HospitalAppearance of UrineOrdered By: Marcos Martin on 77-58-7596Dayymehqqs (U)Urine appearanceCleMemorial Health System Marietta Memorial HospitalAspartate aminotransferase [Enzymatic activity/volume] in Serum or PlasmaOrdered By: Marcos Martin on 85-98-6681OVJ [Catalytic activity/Vol]Aspartate aminotransferase [Enzymatic activity/volume] in Serum or Lojmyr41-84QwbdrgepnOhiohealth O'Bleness HospitalB-Type Natriuretic Peptideon 78-25-7708Wtyzivddsnc peptide B (Bld) [Mass/Vol]254.0 pg/mLHigh5-100The [facility]ly [facility] Physician GroupComment on above: Result Comment: PERFORMED BY:[place] [address] [address] [place], [place] [phone] MEDICAL DIRECTORJAJA WHITE M.D.Performed By: #### CBC, CK, PT, BNP, PTT, HS TROP ####[facility] [place] [address] USABacteria [Presence] in Urine by AutomatedOrdered By: Marcos Martin on 92-09-2825Umkwyqie Auto Ql (U) Bacteria [Presence] in Urine by AutomatedNone Mercy Memorial HospitalBasic Metabolic Panelon 08-87-0038Zcbfc gap [Moles/Vol]8.3 mmol/LNormal 6.0-15.0The Formerly [facility] Physician GroupComment on above:Performed By: #### CUBLD, LACTIC, HEPATIC, TSH3, BMP ####[place] [address] [place] [address] USACalcium [Mass/Vol]8.3 mg/dLLow8.6-10.3The Formerly [facility] Physician GroupComment on above:Performed By: #### CUBLD, LACTIC, HEPATIC, TSH3, BMP ####[address] [address] [place] Chloride [Moles/Vol]98 mmol/UCiuwst87-569Koy [facility] Physician [facility] HospitalComment on above:Performed By: #### CUBLD, LACTIC, HEPATIC, TSH3, BMP ####[place] [address] USACO2 [Moles/Vol]30.2 mmol/QRfqcqr90.0-31.0The Formerly [facility] Physician GroupComment on above:Performed By: #### CUBLD, LACTIC, HEPATIC, TSH3, BMP ####[address] [address] USACreatinine [Mass/Vol]3.07 mg/dLHigh0.70-1.30 The Formerly [facility] Physician GroupComment on above:Performed By: #### CUBLD, LACTIC, HEPATIC, TSH3, BMP ####[address] [address] USACreatinine Clr Calc Zexcqbol41.97NormColumbia Miami [facility] Institute [facility] Comment on above:Result Comment: PERFORMED BY:[address] [place]ESSA[place], [place] [phone] MEDICAL DIRECTORJAJA CATES M.D.Performed By: #### CUBLD, LACTIC, HEPATIC, TSH3, BMP ####[address] [address] USAEstimated GFR19.558 mL/MinNormalThSt. Mary's Hospital Physician [facility] HospitalComment on above:Performed By: #### CUBLD, LACTIC, HEPATIC, TSH3, BMP ####[place] [address] USAGlucose [Mass/Vol]125 mg/vNHmhi10-297Mzh [facility] Physician GroupComment on above:Result Comment: Random Glucose Reference Range is dependent on time and content of last meal. Glucose of more than 200 mg/dL in a nonstressed, ambulatory subject supports the diagnosis of Diabetes Mellitus. ADA recommended reference rangePerformed By: #### CUBLD, LACTIC, HEPATIC, TSH3, BMP ####[place] [address] USAPotassium [Moles/Vol]4.5 mmol/LNormal3.5-5.1 The [facility] Physician [facility] HospitalComment on above:Performed By: #### CUBLD, LACTIC, HEPATIC, TSH3, BMP ####[place] [address] USASodium [Moles/Vol]132 mmol/XAsc291-684Cxb [facility] Comment on above:Performed By: #### CUBLD, LACTIC, HEPATIC, TSH3, BMP ####[place] [address] USAUrea nitrogen [Mass/Vol]40 mg/dLHigh7-25The [facility] Physician [facility] HospitalComment on above:Performed By: #### CUBLD, LACTIC, HEPATIC, TSH3, BMP ####[place] [address] USABasophils Auto (Bld) [#/Vol]Ordered By: Marcos Martin on 13-64-5905Doezyyupr (Bld) [#/Vol]Automated basophil count0.0-0.2FMartin Memorial HospitalBasophils/100 WBC Auto (Bld)Ordered By: Marcos Martin on 53-16-8518Lelagzyaj/100 WBC (Bld)Automated basophil %.Ohiohealth O'Bleness HospitalBilirubin Test strip Ql (U)Ordered By: Marcos Martin on 00-21-4094Dccwnbnxu Ql (U)Bilirubin.total [Presence] in Urine by Test stripNegativeOhiohealth O'Bleness HospitalBilirubin.direct [Mass/volume] in Serum or PlasmaOrdered By: Marcos Martin on 03-10-2024 Bilirubin.direct [Mass/Vol]Bilirubin.direct [Mass/volume] in Serum or PlasmaHigh 0.03-0.18FMartin Memorial HospitalBilirubin.total [Mass/volume] in Serum or PlasmaOrdered By: Marcos Martin on 18-37-2606Qeqihdves [Mass/Vol] Bilirubin.total [Mass/volume] in Serum or Plasma0.3-1.0[facility]'Bleness HospitalBioFire Detectedon 61-85-5575DxcBehp DetectedDetectedCritically abnormalNot DetecteThe Formerly [facility] Physician GroupComment on above:Result Comment: This is a duplicate RP2.1 COVID (PCR) result to be used for statistical tracking purpose only.PERFORMED BY:[address] [place]GEN[place], [place] [phone] MEDICAL DIRECTORJAJA WHITE M.D.Performed By: #### BIOFIRECOVDET, RESP PANEL UPP. ####[place] [id number] USABlood Cultureon 49-33-1270Zitajckv identified Cx Nom (Bld)NO GROWTH 5 DAYS PERFORMED BY: [facility] [address] [place] [id number] PATHOLOGIST [employer] SALES REPRESENTATIVE JAJA CATES M.D.NormalThe Formerly [facility] Physician GroupComment on above: Performed By: #### CUBLD, LACTIC, HEPATIC, TSH3, BMP ####[place] [address] USACOVID-19 Detected/Not Detected Ordered By: Marcos Martin on 37-32-0160WONC-CoV-2 (COVID-19) RNA SMITHA+non-probe Ql (Nph)Not detectedAbnormalNot DetectBlanchard Valley Health System Bluffton HospitalComment on above:This is a duplicate RP2.1 COVID (PCR) result to be used for statistical tracking purpose only.Calcium [Mass/volume] in Serum or PlasmaOrdered By: Marcos Martin on 50-25-8003Yeqmkba [Mass/Vol]Calcium [Mass/volume] in Serum or PlasmaLow 8.6-10.3FMartin Memorial HospitalCarbon dioxide, total [Moles/volume] in Serum or PlasmaOrdered By: Marcos Martin on 90-82-0759PI9 [Moles/Vol]Carbon dioxide, total [Moles/volume] in Serum or Zlxrdz83.0-31.0[facility] O'Bleness HospitalChloride [Moles/volume] in Serum or PlasmaOrdered By: Marcos Martin on 55-60-0261Yfenaeqg [Moles/Vol]Chloride [Moles/volume] in Serum or Plasma 98-107Ohiohealth O'Bleness HospitalColor Auto (U)Ordered By: Marcos Martin on 06-23-2414Oksbl (U)Color of Urine by AutoYellowOhiohealth O'Bleness Hospital Complete Blood Count Auto Diffon 80-55-6378Mhspmwqds (Bld) [#/Vol]0.1 10*3/uL Normal0.0-0.2The Formerly [facility] Physician GroupComment on above:Result Comment: PERFORMED BY:[address] [place], [place] [phone] MEDICAL DIRECTORJAJA CATES M.D. Performed By: #### CBC, CK, PT, BNP, PTT, HS TROP ####[address] [address] USABasophils/100 WBC (Bld)1.4 %Normal. The Formerly [facility] Physician GroupComment on above:Performed By: #### CBC, CK, PT, BNP, PTT, HS TROP ####[address] [address] USAEosinophils (Bld) [#/Vol]0.5 10*3/uLHigh0.0-0.45The Formerly [facility] Physician GroupComment on above:Performed By: #### CBC, CK, PT, BNP, PTT, HS TROP ####[address] [address] [place] Eosinophils/100 WBC (Bld)5.9 %Normal.The Former[facility] Physician GroupComment on above:Performed By: #### CBC, CK, PT, BNP, PTT, HS TROP ####[place] [address] USAErythrocyte distribution width (RBC) [Ratio]15.4 %High12.0-14.8The Formerly [facility] Physician GroupComment on above: Performed By: #### CBC, CK, PT, BNP, PTT, HS TROP ####[place] [address] USAHematocrit (Bld) [Volume fraction] 27.9 %Low38.8-50.0The Formerly [facility] Physician GroupComment on above:Performed By: #### CBC, CK, PT, BNP, PTT, HS TROP ####[place] [address] USAHemoglobin (Bld) [Mass/Vol]9.3 g/dLLow13.0-17.0The Formerly [facility] Physician GroupComment on above:Performed By: #### CBC, CK, PT, BNP, PTT, HS TROP ####[place] [address] USALymphocytes (Bld) [#/Vol]1.0 10*3/uLNormal1.00-4.8The Formerly [facility] Physician GroupComment on above:Performed By: #### CBC, CK, PT, BNP, PTT, HS TROP ####[place] [address] [place] Lymphocytes/100 WBC (Bld)11.9 %Normal.The Formerly [facility] Physician GroupComment on above:Performed By: #### CBC, CK, PT, BNP, PTT, HS TROP ####[place] [address] USAMCH (RBC) [Entitic mass]33.6 gyGluceh21.5-35.2The Formerly [facility] Physician GroupComment on above:Performed By: #### CBC, CK, PT, BNP, PTT, HS TROP ####[address] [place] [address] USAMCV (RBC) [Entitic vol]100.5 rCFgaook35.5-101The Formerly [facility] Physician GroupComment on above:Performed By: #### CBC, CK, PT, BNP, PTT, HS TROP ####[place] [address] USAMean Corpuscular HGB Conc33.5 g/nBIhekpj98.5-35.6The Formerly [facility] Physician GroupComment on above:Performed By: #### CBC, CK, PT, BNP, PTT, HS TROP ####[place] [address] [place] Monocytes (Bld) [#/Vol]0.8 10*3/uLNormal0.0-0.8The [facility] Comment on above:Performed By: #### CBC, CK, PT, BNP, PTT, HS TROP ####[place] [address] USAMonocytes/100 WBC (Bld)22.24 %High0.00-20.00The Formerly [facility] Physician GroupComment on above:Result Comment: For adults in ED, MDW > 20.0 may be associated with a higher risk of sepsis during the first 12 hrs of hospital admissionPerformed By: #### CBC, CK, PT, BNP, PTT, HS TROP ####[place] [id number] USAMonocytes/100 WBC (Bld)9.2 %Normal.The Formerly [facility] Physician GroupComment on above:Performed By: #### CBC, CK, PT, BNP, PTT, HS TROP ####[place] [address] [place] Neutrophils (Bld) [#/Vol]6.1 10*3/uLNormal1.8-7.7The [facility] Comment on above:Performed By: #### CBC, CK, PT, BNP, PTT, HS TROP ####[place] [address] USANeutrophils/100 WBC (Bld)71.6 %Normal.The Formerly [facility] Physician GroupComment on above:Performed By: #### CBC, CK, PT, BNP, PTT, HS TROP ####[place] [address] USANRBC%0.0 /100{WBC}Normal0-0.5The Formerly [facility] Physician GroupComment on above:Performed By: #### CBC, CK, PT, BNP, PTT, HS TROP ####[address] Platelet mean volume (Bld) [Entitic vol]7.6 fLNormal6.6-10.1The Formerly [facility] Physician GroupComment on above:Performed By: #### CBC, CK, PT, BNP, PTT, HS TROP ####[address] Platelets (Bld) [#/Vol]247 10*3/dJZvlboy290-517Ynr [facility] Comment on above:Performed By: #### CBC, CK, PT, BNP, PTT, HS TROP ####[place] [address] USARBC (Bld) [#/Vol] 2.78 10*6/uLLow3.90-5.60The Formerly [facility] Physician GroupComment on above:Performed By: #### CBC, CK, PT, BNP, PTT, HS TROP ####[place] [address] USAWBC (Bld) [#/Vol]8.5 10*3/uLNormal4.1-10.5The Formerly [facility] Physician GroupComment on above:Performed By: #### CBC, CK, PT, BNP, PTT, HS TROP ####[address]Creatine Kinaseon 14-22-8693YQ [Catalytic activity/Vol]22 U/NImx39-587 The Formerly [facility] Physician GroupComment on above:Performed By: #### CBC, CK, PT, BNP, PTT, HS TROP ####[address] [place] [address] USACreatine kinase [Enzymatic activity/volume] in Serum or Plasma Ordered By: Marcos Martin on 60-01-7979LL [Catalytic activity/Vol]Creatine kinase [Enzymatic activity/volume] in Serum or VhsjnrCwr13-291IorpaintoOhiohealth O'Bleness HospitalCreatinine [Mass/volume] in Serum or PlasmaOrdered By: Marcos Martin on 64-85-7566Ximtyoosae [Mass/Vol]Creatinine [Mass/volume] in Serum or Plasma High0.70-1.30[facility]'Bleness HospitalDipstick and Microscopicon 75-82-6729Jqavfheire (U)ClearNormalClearThe Formerly [facility] Physician GroupComment on above:Order Comment: Name Collection Type:: Chou CatheterPerformed By: #### ADDONUAPLUS ####[address] [address] USABacteria,UrineNone SeenNormalNone SeenThe [facility] Comment on above:Order Comment: Name Collection Type:: Chou CatheterPerformed By: #### ADDONUAPLUS ####[address] [address] USABilirubin,UrineNegativeNormalNegativeMayo Clinic Florida Physician GroupComment on above:Order Comment: Name Collection Type:: Chou CatheterPerformed By: #### ADDONUAPLUS ####[address] [address] USAColor (U)Light-YellowNormalYellowMayo Clinic Florida Physician GroupComment on above:Order Comment: Name Collection Type:: Chou CatheterPerformed By: #### ADDONUAPLUS ####[address] [address] USAGlucose Ql (U)NormalNormalNormalThe Former[facility] Physician GroupComment on above:Order Comment: Name Collection Type:: Chou CatheterPerformed By: #### ADDONUAPLUS ####[address] [address] USAHyaline Casts,UrineInnumerableHigh0-8The Former[facility] Physician GroupComment on above:Order Comment: Name Collection Type:: Chou CatheterPerformed By: #### ADDONUAPLUS ####[address] [address] USAKetones Ql (U)NegativeNormalNegative The Former[facility] Physician GroupComment on above:Order Comment: Name Collection Type:: Chou CatheterPerformed By: #### ADDONUAPLUS ####[address] [address] USALeukocyte esterase Test strip Ql (U)NegativeNormalNegativeThe Formerly [facility] Physician GroupComment on above:Order Comment: Name Collection Type:: Chou CatheterPerformed By: #### ADDONUAPLUS ####[address] [address] [place] Mucus,UrineRareNormalThe Formerly [facility] Physician GroupComment on above:Order Comment: Name Collection Type:: Chou CatheterResult Comment: PERFORMED BY:[place] [address] [address] [place] [id number]PATHOLOGIST MEDICAL DIRECTORJAJA CATES M.D.Performed By: #### ADDONUAPLUS ####[address] [address] USANitrite,UrineNegativeNormalNegativeThe Formerly [facility] Physician GroupComment on above:Order Comment: Name Collection Type:: Chou CatheterPerformed By: #### ADDONUAPLUS ####[address] [address] USAOccult Blood,UrineTraceHighNegativeMayo Clinic Florida Physician GroupComment on above:Order Comment: Name Collection Type:: Chou CatheterResult Comment: PERFORMED BY:[place] [address] [address] [place] [phone] MEDICAL DIRECTORJAJA CATES M.D. Performed By: #### ADDONUAPLUS ####[address] [address] USApH (U)5.0 [pH]Normal5.0-9.0The Former[facility] Physician GroupComment on above:Order Comment: Name Collection Type:: Chou Catheter Performed By: #### ADDONUAPLUS ####[address] [address] USAProtein,UrineNegativeNormalNegativeMayo Clinic Florida Physician GroupComment on above:Order Comment: Name Collection Type:: Chou CatheterPerformed By: #### ADDONUAPLUS ####[address] [address] USARBC,Urine5 [HPF]High0-4The Former[facility] Physician GroupComment on above:Order Comment: Name Collection Type:: Chou Catheter Performed By: #### ADDONUAPLUS ####[address] [address] USASpecificy Weatherby,Urine1.304Zodmqe8.001-1.030The Formerly [facility] Physician GroupComment on above:Order Comment: Name Collection Type:: Chou CatheterPerformed By: #### ADDONUAPLUS ####[address] [address] USASquamous Epithelial Cell,Urine1 [HPF] Normal0-2The Former[facility] Physician GroupComment on above:Order Comment: Name Collection Type:: Chou CatheterPerformed By: #### ADDONUAPLUS ####[address] [address] USAUrobilinogen,Urine NormalNormalNormOhio State University Wexner Medical Centere Formerly [facility] Physician GroupComment on above:Order Comment: Name Collection Type:: Chou CatheterPerformed By: #### ADDONUAPLUS ####[address] [address] [place] WBC,Urine5 [HPF]High0-4The Former[facility] Physician GroupComment on above:Order Comment: Name Collection Type:: Chou CatheterPerformed By: #### ADDONUAPLUS ####[address] [address] USAECG 12 lead ECGon 88-65-0598BVO 12 lead ECGNormOhio State University Wexner Medical Centere [facility] Eosinophils Auto (Bld) [#/Vol]Ordered By: Marcos Martin on 12-37-5266Lymdnhwcpko (Bld) [#/Vol]Automated eosinophil countHigh0.0-0.45[facility]'Bleness HospitalEosinophils/100 WBC Auto (Bld)Ordered By: Marcos Martin on 03-10-2024 Eosinophils/100 WBC (Bld)Automated eosinophil %.[facility]'Bleness HospitalEpithelial cells.squamous [#/area] in Urine sediment by Automated count Ordered By: Marcos Martin on 45-70-7913Fdsaxgpsws cells.squamous Auto (Urine sed) [#/Area]Epithelial cells.squamous [#/area] in Urine sediment by Automated count 0-2FMartin Memorial HospitalErythrocyte distribution width Auto (RBC) [Ratio]Ordered By: Marcos Martin on 87-90-2397Bggathoojbe distribution width (RBC) [Ratio]Erythrocyte distribution width [Ratio] by Automated tursiMqkg39.0-14.8 [facility]len[facility] HospitalErythrocytes [#/area] in Urine sediment by Automated countOrdered By: Marcos Martin on 10-65-9857FKA Auto (Urine sed) [#/Area]Erythrocytes [#/area] in Urine sediment by Automated countHigh0-4 [facility]Blen[facility] HospitalGlobulin Calc (S) [Mass/Vol]Ordered By: Marcos Martin on 01-61-2455Ykwxgbjx (S) [Mass/Vol]Serum globulin measurement by calculation (mass/volume)[facility]Blen[facility] HospitalGlucose [Mass/volume] in Serum or PlasmaOrdered By: Marcos Martni on 42-52-3665Xqvgxeu [Mass/Vol]Glucose [Mass/volume] in Serum or ZvibxlSjhl28-068QoridpjkrOhiohealth O'Bleness Hospital Comment on above:ADA recommended reference rangeRandom Glucose Reference Range is dependent on time and content of last meal. Glucose of more than 200 mg/dL in a nonstressed, ambulatory subject supports the diagnosisof Diabetes Mellitus. Glucose [Mass/volume] in Urine by Test stripOrdered By: Marcos Martin on 03-58-2328Csgvcjf Test strip (U) [Mass/Vol]Glucose [Mass/volume] in Urine by Test stripNormalOhiohealth O'Bleness HospitalHematocrit Auto (Bld) [Volume fraction]Ordered By: Marcos Martin on 61-64-0549Zfkptfilaz (Bld) [Volume fraction] Hematocrit [Volume Fraction] of Blood by Automated prskiKaf38.8-50.0[facility]len[facility] HospitalHemoglobin Test strip Ql (U)Ordered By: Marcos Martin on 72-80-4131Apccbmhazr Ql (U)Hemoglobin [Presence] in Urine by Test stripHigh NegativeOhiohealth O'Bleness HospitalHemoglobin [Mass/volume] in Blood Ordered By: Marcos Martin on 87-13-5986Qsjlkgzorj (Bld) [Mass/Vol]Hemoglobin [Mass/volume] in ErnmbKkr93.0-17.0[facility]'Blen[facility] HospitalHepatic Panel on 88-03-8337Pwzqxqs [Mass/Vol]2.7 g/dLLow3.5-5.7The [facility] Comment on above:Performed By: #### CUBLD, LACTIC, HEPATIC, TSH3, BMP ####[place] [address] [place] [id number] [place] Albumin/Globulin [Mass ratio]0.9 {ratio}NormalThe [facility] Comment on above:Performed By: #### CUBLD, LACTIC, HEPATIC, TSH3, BMP ####[place] [address] [place] [address] USAALP [Catalytic activity/Vol]111 U/UIooa64-335Gni [facility] Physician GroupComment on above:Performed By: #### CUBLD, LACTIC, HEPATIC, TSH3, BMP ####[address] [address] USAALT [Catalytic activity/Vol]10 U/LNormal7-52The [facility] Physician GroupComment on above: Performed By: #### CUBLD, LACTIC, HEPATIC, TSH3, BMP ####[address] [address] USAAST [Catalytic activity/Vol]18 U/OYdpoeu36-95Wyb [facility] Physician GroupComment on above:Performed By: #### CUBLD, LACTIC, HEPATIC, TSH3, BMP ####[address] [address] USABilirubin [Mass/Vol]0.6 mg/dLNormal0.3-1.0The [facility] Physician GroupComment on above:Performed By: #### CUBLD, LACTIC, HEPATIC, TSH3, BMP ####[place] [address] USABilirubin,Indirect0.4 mg/dLNoAsheville Specialty Hospital Physician [facility] Comment on above:Performed By: #### CUBLD, LACTIC, HEPATIC, TSH3, BMP ####[address] Bilirubin.indirect [Mass/Vol]0.20 mg/dLHigh0.03-0.18The [facility] Physician GroupComment on above:Performed By: #### CUBLD, LACTIC, HEPATIC, TSH3, BMP ####[address] Globulin (S) [Mass/Vol]3.0 g/dLNoAsheville Specialty Hospital Physician [facility] HospitalComment on above:Performed By: #### CUBLD, LACTIC, HEPATIC, TSH3, BMP ####[place] [address] USAProtein [Mass/Vol]5.7 g/dLLow6.4-8.9The [facility] Physician GroupComment on above:Performed By: #### CUBLD, LACTIC, HEPATIC, TSH3, BMP ####[place] [address] USAHyaline casts [#/area] in Urine sediment by Automated countOrdered By: Marcos Martin on 35-17-5419Lpplbpk casts Auto (Urine sed) [#/Area]Hyaline casts [#/area] in Urine sediment by Automated countHigh0-8 [facility]Bleness HospitalINR in Platelet poor plasma by Coagulation assayOrdered By: Marcos Martin on 44-84-0285BGZ Coag (PPP) [Relative time]INR in Platelet poor plasma by Coagulation assayOhiohealth O'Bleness Hospital Comment on above:INR Therapeutic Range A) [...] Ql (U)Ketones [Presence] in Urine by Test stripNegativeOhiohealth O'Bleness HospitalLaboratory - Microbiology and Antimicrobial susceptibilityOrdered By: Marcos Martin on 69-89-8924Omcvpdyq identified Cx Nom (Bld)NO GROWTH 5 DAYSOhiohealth O'Bleness HospitalBacteria identified Cx Nom (Bld)NO GROWTH 5 DAYSOhiohealth O'Bleness HospitalLactate [Moles/volume] in Serum or PlasmaOrdered By: Marcos Martin on 29-99-3654Kwjxekf [Moles/Vol]Lactate [Moles/volume] in Serum or Plasma0.5-2.2FMartin Memorial HospitalLactic Acidon 88-57-7040Merbpag [Moles/Vol]1.2 mmol/LNormal0.5-2.2The [facility] Physician GroupComment on above:Result Comment: PERFORMED BY:[facility] [place] [address] [place], [place] [phone] MEDICAL DIRECTORJAJA CATES M.D.Performed By: #### CUBLD, LACTIC, HEPATIC, TSH3, BMP ####[facility] [place] [address] USALeukocyte esterase [Presence] in Urine by Test stripOrdered By: Marcos Martin on 53-01-1312Kikdihxjp esterase Test strip Ql (U)Leukocyte esterase [Presence] in Urine by Test stripNegativeOhiohealth O'Bleness HospitalLeukocytes [#/area] in Urine sediment by Automated countOrdered By: Marcos Martin on 23-25-0378DRD Auto (Urine sed) [#/Area]Leukocytes [#/area] in Urine sediment by Automated countHigh0-4FMartin Memorial HospitalLeukocytes [#/volume] corrected for nucleated erythrocytes in Blood by Automated counOrdered By: Marcos Martin on 96-10-9874FAU corrected for nucl RBC Auto (Bld) [#/Vol]Leukocytes [#/volume] corrected for nucleated erythrocytes in Blood by Automated coun 4.1-10.5FMartin Memorial HospitalLymphocytes Auto (Bld) [#/Vol]Ordered By: Marcos Martin on 55-14-9581Uglgutvwzjv (Bld) [#/Vol]Lymphocytes [#/volume] in Blood by Automated count1.00-4.8[facility]'Bleness HospitalLymphocytes/100 WBC Auto (Bld)Ordered By: Marcos Martin on 63-47-7426Vbhstvkwveu/100 WBC (Bld) Lymphocytes/100 leukocytes in Blood by Automated count.[facility]'Bleness HospitalMCH Auto (RBC) [Entitic mass]Ordered By: Marcos Martin on 03-10-2024 MCH (RBC) [Entitic mass]MCH [Entitic mass] by Automated count27.5-35.2FMartin Memorial HospitalMCHC Auto (RBC) [Mass/Vol]Ordered By: Marcos Martin on 31-60-7659EQDH (RBC) [Mass/Vol]MCHC [Mass/volume] by Automated count32.5-35.6 [facility] HospitalMCV Auto (RBC) [Entitic vol]Ordered By: Marcos Martin on 96-86-0174SDB (RBC) [Entitic vol]MCV [Entitic volume] by Automated count83.5-101Ohio[facility]'Bleness HospitalMonocyte distribution width [Entitic volume] in Blood by AutomatedOrdered By: Marcos Martin on 03-10-2024 Monocyte distribution width Auto (Bld) [Entitic vol]Monocyte distribution width [Entitic volume] in Blood by AutomatedHigh0.00-20.00[facility]'Bleness HospitalComment on above:For adults in ED, MDW > 20.0 may be associated with a higher risk of sepsis during the first 12 hrs of hospital admissionMonocytes Auto (Bld) [#/Vol]Ordered By: Marcos Martin on 36-73-5122Qocbejlfc (Bld) [#/Vol] Automated blood monocyte count0.0-0.8[facility] Monocytes/100 WBC Auto (Bld)Ordered By: Marcos Martin on 06-54-9667Uprrpkjmq/100 WBC (Bld)Automated monocyte %.[facility]'Bleness HospitalMucus [Presence] in Urine by AutomatedOrdered By: Marcos Martin on 02-16-7620Fdrvy Auto Ql (U)Mucus [Presence] in Urine by AutomatedOhiohealth O'Bleness HospitalNatriuretic peptide B [Mass/Vol]Ordered By: Marcos Martin on 21-81-6114Hgftjamrgue peptide B (Bld) [Mass/Vol]BNP ser/plasHigh5-100[facility] Neutrophils Auto (Bld) [#/Vol]Ordered By: Marcos Martin on 18-18-5970Yqlowvbuhwn (Bld) [#/Vol]Neutrophils [#/volume] in Blood by Automated count1.8-7.7FMartin Memorial HospitalNeutrophils/100 WBC Auto (Bld)Ordered By: Marcos Martin on 90-33-4380Yqegjjeothr/100 WBC (Bld)Automated neutrophil %.[facility] O'Bleness HospitalNitrite Test strip Ql (U)Ordered By: Marcos Martin on 03-10-2024 Nitrite Ql (U)Nitrite [Presence] in Urine by Test stripNegativeOhiohealth O'Bleness HospitalNo Panel InformationOrdered By: Marcos Martin on 03-10-2024 Estimated GFR (CKD-EPI)19.558 mL/MinOhiohealth O'Bleness HospitalPharmacy Creatinine Clearance (Chem19.97[facility] HospitalNO GROWTH 5 DAYS [facility]leness HospitalNucleated erythrocytes [Presence] in Blood by Automated countOrdered By: Marcos Martin on 45-69-5780Apyigaavf RBC Auto Ql (Bld) Nucleated erythrocytes [Presence] in Blood by Automated count0-0.5FMartin Memorial HospitalPartial Thromboplastin Timeon 46-05-2162vWCE Coag (Bld) [Time]38.8 sHigh25.1-36.5The [facility]ly [facility] Physician GroupComment on above:Result Comment: A hematocrit value greater than 55% may lead to inaccurate results in coagulation testing. Patients having hematocrit values >55% require a special collection tube for coagulation studies. Please contact the laboratory at [phone] for redraw instructions.PERFORMED BY:[place] [address] [place], [place] [phone] MEDICAL DIRECTORJAJA CATES M.D.Performed By: #### CBC, CK, PT, BNP, PTT, HS TROP ####[facility] Platelet mean volume Auto (Bld) [Entitic vol]Ordered By: Marcos Martin on 18-48-8966Qnbehezk mean volume (Bld) [Entitic vol]Platelet mean volume [Entitic volume] in Blood by Automated count6.6-10.1FMartin Memorial Hospital Platelets Auto (Bld) [#/Vol]Ordered By: Marcos Martin on 86-66-1756Vnrqjcmhj (Bld) [#/Vol]Platelets [#/volume] in Blood by Automated -076XasoadgwsOhiohealth O'Bleness HospitalPotassium [Moles/volume] in Serum or PlasmaOrdered By: Marcos Martin on 78-07-0816Mhmnxxouw [Moles/Vol]Potassium [Moles/volume] in Serum or Plasma3.5-5.1FMartin Memorial HospitalProtein Test strip (U) [Mass/Vol]Ordered By: Marcos Martin on 71-10-4094Grimkuz (U) [Mass/Vol]Protein [Mass/volume] in Urine by Test stripNegativeOhiohealth O'Bleness Hospital Protein [Mass/volume] in Serum or PlasmaOrdered By: Marcos Martin on 03-10-2024 Protein [Mass/Vol]Protein [Mass/volume] in Serum or PlasmaLow6.4-8.9[facility]Bleness HospitalProthrombin Time INRon 68-24-0216PJY Coag (PPP) [Relative time]2.7 {INR}NormalThe Formerly Park Ridge Health Physician GroupComment on above:Result Comment: INR [...] CK, PT, BNP, PTT, HS TROP ####[facility] [place] [address] USAPT Coag (PPP) [Time] 30.4 sHigh9.0-12.9[facility] Physician GroupComment on above:Result Comment: A hematocrit value greater than 55% may lead to inaccurate results in coagulation testing. Patients having hematocrit values >55% require a special collection tube for coagulation studies. Please contact the laboratory at [phone] for redraw instructions.Performed By: #### CBC, CK, PT, BNP, PTT, HS TROP ####[facility] [address] [place] [address] USAProthrombin time (PT)Ordered By: Marcos Martin on 89-01-9471CG Coag (PPP) [Time]Prothrombin time (PT)High9.0-12.9[facility] O'Bleness HospitalComment on above:A hematocrit value greater than 55% may lead to inaccurate results in coagulation testing. Patientshaving hematocrit values >55% require a special collection tube for coagulation studies. Please contact the laboratory at [phone] for redraw instructions.RBC Auto (Bld) [#/Vol]Ordered By: Marcos Martin on 81-19-3923VPM (Bld) [#/Vol]Erythrocytes [#/volume] in Blood by Automated countLow3.90-5.60[facility] HospitalRespiratory (Upper) Panel, PCRon 38-89-6041Lqfbmqrszqe (Upper) Panel, PCRNormColumbia Miami Heart Institute Physician GroupComment on above:Performed By: #### BIOFIRECOVDET, RESP PANEL UPP. ####[facility] [address] [place] [address] [facility] Respiratory pathogens DNA and RNA panel - Nasopharynx by SMITHA with non-probe detectionOrdered By: Marcos Martin on 33-02-1667Ialhsquclbn pathogens DNA and RNA panel SMITHA+non-probe (Nph)Respiratory pathogens DNA and RNA panel - Nasopharynx by SMITHA with non-probe detectionHighland District Hospitalerum or plasma albumin/globulin mass ratioOrdered By: Marcos Martin on 91-96-6002Ekdqlcq/Globulin [Mass ratio]Serum or plasma albumin/globulin mass ratioHighland District Hospitalerum or plasma anion gap determinationOrdered By: Marcos Martin on 13-11-3124Vapmh gap [Moles/Vol]Serum or plasma anion gap determination6.0-15.0 Highland District Hospitalerum or plasma non-glucuronidated bilirubin measurement (mass/volume)Ordered By: Marcos Martin on 39-83-0677Hschrweek.indirect [Mass/Vol]Serum or plasma non-glucuronidated bilirubin measurement (mass/volume)Highland District Hospitalodium [Moles/volume] in Serum or PlasmaOrdered By: Marcos Martin on 63-20-3620Jrwuno [Moles/Vol]Sodium [Moles/volume] in Serum or ZaymzgYsy190-029NqpqdxwyvOhiohealth O'Bleness Hospital Specific gravity Test strip (U) [Rel density]Ordered By: Marcos Martin on 81-80-7855Mzgukcpz gravity (U) [Rel density]Specific gravity of Urine by Test strip1.001-1.030[facility]Bleness HospitalThyroid Stimulating Hormoneon 19-40-6151MSD Qn11.48 m[IU]/LHigh0.45-5.33The Formerly [facility] Physician GroupComment on above:Result Comment: PERFORMED BY:[place] [address] [place], [place] [phone] MEDICAL DIRECTORJAJA CATES M.D.Performed By: #### CUBLD, LACTIC, HEPATIC, TSH3, BMP ####[address] [address] [facility] Thyrotropin [Units/volume] in Serum or PlasmaOrdered By: Mitchell Reyes on 46-94-0272FIC QnThyrotropin [Units/volume] in Serum or PlasmaHigh0.45-5.33 [facility]Blen[facility] HospitalTroponin I High Sensitivityon 03-10-2024 Troponin I High Vfmxxqurhrc29.1 pg/mLNormal0.0-20.0The [facility] Comment on above:Result Comment: PERFORMED BY:[address] [place], [place] [phone] MEDICAL DIRECTORJAJA CATES M.D.Performed By: #### CBC, CK, PT, BNP, PTT, HS TROP ####[facility] [address] [place] [address] [facility] Troponin I.cardiac [Mass/volume] in Serum or Plasma by Detection limit <= 0.01 ng/Ordered By: Marcos Martin on 61-67-2159Jedevolb I.cardiac DL <= 0.01 ng/mL [Mass/Vol]Troponin I.cardiac [Mass/volume] in Serum or Plasma by Detection limit <= 0.01 ng/0.0-20.0[facility]Blen[facility] HospitalUrea nitrogen [Mass/volume] in Serum or PlasmaOrdered By: Marcos Martin on 47-77-0277Vaqg nitrogen [Mass/Vol] Urea nitrogen [Mass/volume] in Serum or PlasmaWebster County Memorial Hospital7-25Ohio[facility]'Bleness HospitalUrine Cultureon 42-55-6149Eecdtdbd identified Cx Nom (U)No Growth 2 Days PERFORMED BY: [place] [address] PATHOLOGIST [employer] SALES REPRESENTATIVE JAJA CATES M.D.NormalThe Formerly Park Ridge Health Physician GroupComment on above: Performed By: #### CUU ####[facility] [address] [place] [address] USAUrine cultureOrdered By: Mitchell Reyes on 51-27-6041Xteoqlti identified Cx Nom (U)Urine cultureOhiohealth O'Bleness HospitalBacteria identified Cx Nom (U)Urine cultureOhiohealth O'Bleness HospitalUrobilinogen Test strip (U) [Mass/Vol]Ordered By: Marcos Martin on 45-22-2103Cjkuyfrekvmr (U) [Mass/Vol]Urobilinogen [Mass/volume] in Urine by Test stripNormalOhiohealth O'Bleness HospitalWBC Auto (Bld) [#/Vol]Ordered By: Marcos Martin on 89-03-7515PRQ (Bld) [#/Vol]Leukocytes [#/volume] in Blood by Automated count4.1-10.5FMartin Memorial HospitalX-ray reportOrdered By: Shaquille Mahoney on 31-97-5006Ouppv reportST. VINCENT H[facility]ITAL [address] [place] [address] [place] [address] XRay Report Signed Patient: Tavo Wallis Jr MR# : [id number] : 1940 Acct:[id number] Age/Sex: 83 / M ADM Date: 5 Loc: ER Room: Type: [facility] ER Attending Dr: Copies to: Marcos [...] Shaquille Mahoney M.D.03/10/2024 10:26 AM Dictation Location: [place] [address] Transcribed By: NOLVIA 03/10/24 1026 Dictated By: Shaquille Mahoney II, MD 03/10/24 1025 Signed By: 03/10/24 [facility]6 [facility] Work Phone: XR chest 1V portableon 70-81-7350FT chest 1V portable NormalThe Formerly Park [facility] Health Physician GroupaPTT in Platelet poor plasma by Coagulation assayOrdered By: Marcos Martin on 06-36-5192pBXD Coag (PPP) [Time]Activated partial thromboplastin time (aPTT) in platelet poor plasma by coagulation [facility] 25.1-36.5FMartin Memorial HospitalComment on above:A hematocrit value greater than 55% may lead to inaccurate results in coagulation testing. Patients having hematocrit values >55% require a special collection tube for coagulation studies. Please contact the laboratory at [phone] for redraw instructions. pH Test strip (U)Ordered By: Marcos Martin on 57-18-7340zX (U)pH of Urine by Test strip5.0-9.0[facility]Blen[facility] HospitalAlanine aminotransferase [Enzymatic activity/volume] in Serum or PlasmaOrdered By: Sandip Bunting on 78-87-7315ZDG [Catalytic activity/Vol]Alanine aminotransferase [Enzymatic activity/volume] in Serum or Plasma7-52[facility] HospitalAlbumin [Mass/volume] in Serum or Plasma by Bromocresol green (BCG) dye binding methoOrdered By: Sandip Bunting on 41-66-7872Hfmoqhs BCG dye [Mass/Vol]Albumin [Mass/volume] in Serum or Plasma by Bromocresol green (BCG) dye binding methoLow3.5-5.7FMartin Memorial HospitalAlkaline phosphatase [Enzymatic activity/volume] in Serum or PlasmaOrdered By: Sandip Bunting on 84-45-9412XWJ [Catalytic activity/Vol] Alkaline phosphatase [Enzymatic activity/volume] in Serum or JvnscxDpva38-870 [facility]len[facility] HospitalAspartate aminotransferase [Enzymatic activity/volume] in Serum or PlasmaOrdered By: Sandip Bunting on 09-39-6624ONJ [Catalytic activity/Vol]Aspartate aminotransferase [Enzymatic activity/volume] in Serum or Emyczz29-15BwdpklzaoOhiohealth O'Bleness HospitalBasophils Auto (Bld) [#/Vol]Ordered By: Sandip Bunting on 66-81-0256Wgogufwtv (Bld) [#/Vol]Automated basophil count0.0-0.2FMartin Memorial HospitalBasophils/100 WBC Auto (Bld)Ordered By: Sandip Bunting on 67-14-9813Rwwhuugfi/100 WBC (Bld)Automated basophil %.Ohio[facility]'Blen[facility] HospitalBilirubin.total [Mass/volume] in Serum or PlasmaOrdered By: Sandip Bunting on 82-68-8782Fqyrjzlnt [Mass/Vol] Bilirubin.total [Mass/volume] in Serum or Plasma0.3-1.0[facility] HospitalCalcium [Mass/volume] in Serum or PlasmaOrdered By: Sandip Bunting on 30-31-5192Lzfuubv [Mass/Vol]Calcium [Mass/volume] in Serum or PlasmaLow 8.6-10.3FMartin Memorial HospitalCarbon dioxide, total [Moles/volume] in Serum or PlasmaOrdered By: Sandip Bunting on 43-64-5939HB2 [Moles/Vol]Carbon dioxide, total [Moles/volume] in Serum or Oonhyc08.0-31.0[facility] HospitalChloride [Moles/volume] in Serum or PlasmaOrdered By: Sandip Bunting on 91-85-4147Slpalevl [Moles/Vol]Chloride [Moles/volume] in Serum or Knqijn91-157WspefbliwOhiohealth O'Bleness HospitalComplete Blood Count Auto Diffon 43-03-2348Awgrazylr (Bld) [#/Vol]0.0 10*3/uLNormal0.0-0.2The Formerly [facility] Physician GroupComment on above:Result Comment: PERFORMED BY:[address] [place], [place] [phone] MEDICAL DIRECTORJAJA CATES M.D.Performed By: #### CMP, CBC ####[address] [address] USABasophils/100 WBC (Bld)0.5 %Normal.The Formerly [facility] Physician GroupComment on above:Performed By: #### CMP, CBC ####[address] [address] USAEosinophils (Bld) [#/Vol]0.4 10*3/uLNormal0.0-0.45The Formerly [facility] Physician GroupComment on above:Performed By: #### CMP, CBC ####[address] [address] USAEosinophils/100 WBC (Bld)4.6 %Normal.The Formerly [facility] Physician GroupComment on above:Performed By: #### CMP, CBC ####[address] [address] USAErythrocyte distribution width (RBC) [Ratio]15.4 %High12.0-14.8The Formerly [facility] Health Physician GroupComment on above:Performed By: #### CMP, CBC ####[place] [address] [facility] Hematocrit (Bld) [Volume fraction]28.8 %Low38.8-50.0The Formerly [facility] Physician GroupComment on above:Performed By: #### CMP, CBC ####[place] [address] USAHemoglobin (Bld) [Mass/Vol]9.7 g/dLLow 13.0-17.0The Formerly [facility] Physician GroupComment on above:Performed By: #### CMP, CBC ####[place] [address] [place] Lymphocytes (Bld) [#/Vol]0.5 10*3/uLLow1.00-4.8The [facility] Comment on above:Performed By: #### CMP, CBC ####[place] [address] USALymphocytes/100 WBC (Bld)6.1 %Normal. The Formerly [facility] Physician GroupComment on above:Performed By: #### CMP, CBC ####[place] [address] USAMCH (RBC) [Entitic mass]34.4 wjDxfssi33.5-35.2The Formerly [facility] Physician GroupComment on above:Performed By: #### CMP, CBC ####[place] [address] USAMCV (RBC) [Entitic vol]102.5 cKGqey94.5-101The Formerly [facility] Physician GroupComment on above:Performed By: #### CMP, CBC ####[place] [address] USAMean Corpuscular HGB Conc33.6 g/uNYqsfjj16.5-35.6The Formerly [facility] Physician GroupComment on above:Performed By: #### CMP, CBC ####[place] [address] USAMonocytes (Bld) [#/Vol]0.6 10*3/uLNormal 0.0-0.8The Formerly [facility] Physician GroupComment on above:Performed By: #### CMP, CBC ####[address] [address] [place] Monocytes/100 WBC (Bld)7.3 %Normal.The Formerly [facility] Physician GroupComment on above:Performed By: #### CMP, CBC ####[address] [address] USANeutrophils (Bld) [#/Vol]6.2 10*3/uLNormal1.8-7.7The Formerly [facility] Physician GroupComment on above:Performed By: #### CMP, CBC ####[address] [address] [place] Neutrophils/100 WBC (Bld)81.5 %Normal.The Formerly [facility] Physician GroupComment on above:Performed By: #### CMP, CBC ####[place] [address] USANRBC%0.1 /100{WBC}Normal0-0.5The Formerly [facility] Physician GroupComment on above:Performed By: #### CMP, CBC ####[address] [address] USAPlatelet mean volume (Bld) [Entitic vol]8.2 fLNormal6.6-10.1The Formerly [facility] Physician GroupComment on above: Performed By: #### CMP, CBC ####[address] [address] USAPlatelets (Bld) [#/Vol]265 10*3/kSPwhmnn946-679Qce Former[facility] Physician GroupComment on above:Performed By: #### CMP, CBC ####[address] [address] USARBC (Bld) [#/Vol]2.81 10*6/uLLow3.90-5.60The Formerly [facility] Physician GroupComment on above:Performed By: #### CMP, CBC ####[address] [address] USAWBC (Bld) [#/Vol]7.6 10*3/uLNormal4.1-10.5The Formerly [facility] Physician GroupComment on above:Performed By: #### CMP, CBC ####[address] [address] [facility] Comprehensive Metabolic Panelon 01-62-1014Dxinjyp [Mass/Vol]2.8 g/dLLow3.5-5.7 The Former[facility] Physician GroupComment on above:Performed By: #### CMP, CBC ####[place] [address] [facility] Albumin/Globulin [Mass ratio]1.2 {ratio}NormalThe [facility]ly [facility] Comment on above:Performed By: #### CMP, CBC ####[place] [address] USAALP [Catalytic activity/Vol]106 U/L Shah32-442Fxz Former[facility] Physician GroupComment on above:Result Comment: PERFORMED BY:[address] [place], [place] [phone] MEDICAL DIRECTORJAJA CATES M.D. Performed By: #### CMP, CBC ####[address] [address] USAALT [Catalytic activity/Vol]13 U/LNormal7-52The Formerly [facility] Physician GroupComment on above:Performed By: #### CMP, CBC ####[address] [address] USAAnion gap [Moles/Vol]9.7 mmol/LNormal6.0-15.0The Former[facility] Physician GroupComment on above:Performed By: #### CMP, CBC ####[address] [address] USAAST [Catalytic activity/Vol]22 U/TPdqtyb75-49Kvl Former[facility] Physician GroupComment on above:Performed By: #### CMP, CBC ####[address] [address] [place] Bilirubin [Mass/Vol]0.7 mg/dLNormal0.3-1.0The Former[facility] Physician GroupComment on above:Performed By: #### CMP, CBC ####[address] [address] USACalcium [Mass/Vol]8.2 mg/dLLow8.6-10.3The Formerly [facility] Physician GroupComment on above:Performed By: #### CMP, CBC ####[address] [address] [place] Chloride [Moles/Vol]98 mmol/GYiyneg60-739Qvm [facility] Physician GroupComment on above:Performed By: #### CMP, CBC ####[address] [address] USACO2 [Moles/Vol]27.9 mmol/ARhehaj54.0-31.0The Former[facility] Physician GroupComment on above:Performed By: #### CMP, CBC ####[address] [address] [place] Creatinine [Mass/Vol]1.58 mg/dLHigh0.70-1.30The Former[facility] Physician GroupComment on above:Performed By: #### CMP, CBC ####[address] [address] USAEstimated GFR43.402 mL/MinNoAsheville Specialty Hospital Physician [facility] County General HospitalComment on above:Performed By: #### CMP, CBC ####[address] [address] USAGlobulin (S) [Mass/Vol]2.3 g/dLNoAsheville Specialty Hospital Physician GroupComment on above:Performed By: #### CMP, CBC ####[address] [address] USAGlucose [Mass/Vol]111 mg/qAOzgl13-720Mrx [facility] Comment on above:Result Comment: Random Glucose Reference Range is dependent on time and content of last meal. Glucose of more than 200 mg/dL in a nonstressed, ambulatory subject supports the diagnosis of Diabetes Mellitus. ADA recommended reference rangePerformed By: #### CMP, CBC ####[address] [address] USAPotassium [Moles/Vol]3.6 mmol/LNormal 3.5-5.1The Former[facility] Physician GroupComment on above:Performed By: #### CMP, CBC ####[facility] [address] [place] [id number] [place] Protein [Mass/Vol]5.1 g/dLLow6.4-8.9The Former[facility] Physician GroupComment on above:Performed By: #### CMP, CBC ####[facility] [address] [place] [address] USASodium [Moles/Vol]132 mmol/MIjk862-033Fcm [facility] Physician GroupComment on above:Performed By: #### CMP, CBC ####[facility] [address] [place] [address] USAUrea nitrogen [Mass/Vol]24 mg/dLNormal7-25The Formerly [facility] Physician GroupComment on above: Performed By: #### CMP, CBC ####[place] [address] [place] [id number] USACreatinine [Mass/volume] in Serum or PlasmaOrdered By: Sandip Bunting on 80-44-9577Fproywawqm [Mass/Vol]Creatinine [Mass/volume] in Serum or PlasmaHigh0.70-1.30[facility] HospitalEosinophils Auto (Bld) [#/Vol]Ordered By: Sandip Bunting on 74-45-3097Ktxsvasyken (Bld) [#/Vol] Automated eosinophil count0.0-0.45[facility] Eosinophils/100 WBC Auto (Bld)Ordered By: Sandip Bunting on 03-02-2024 Eosinophils/100 WBC (Bld)Automated eosinophil %.Ohio[facility] O'Bleness HospitalErythrocyte distribution width Auto (RBC) [Ratio]Ordered By: Sandip Bunting on 44-44-4809Ausicjtzcgf distribution width (RBC) [Ratio]Erythrocyte distribution width [Ratio] by Automated euswyIcmb25.0-14.8[facility]len[facility] HospitalGlobulin Calc (S) [Mass/Vol]Ordered By: Sandip Bunting on 24-28-3496Kwqmdgyq (S) [Mass/Vol]Serum globulin measurement by calculation (mass/volume)[facility] HospitalGlucose [Mass/volume] in Serum or PlasmaOrdered By: Sandip Bunting on 55-18-8114Ybqstbi [Mass/Vol]Glucose [Mass/volume] in Serum or VqxnuoNdby85-542WztiqnazxOhiohealth O'Bleness Hospital Comment on above:ADA recommended reference rangeRandom Glucose Reference Range is dependent on time and content of last meal. Glucose of more than 200 mg/dL in a nonstressed, ambulatory subject supports the diagnosisof Diabetes Mellitus. Hematocrit Auto (Bld) [Volume fraction]Ordered By: Sandip Aguirre on 03-02-2024 Hematocrit (Bld) [Volume fraction]Hematocrit [Volume Fraction] of Blood by Automated mwjliMow54.8-50.0[facility]len[facility] HospitalHemoglobin [Mass/volume] in BloodOrdered By: Sandip Bunting on 66-04-2371Dgygpphnuh (Bld) [Mass/Vol]Hemoglobin [Mass/volume] in TpapoEyy42.0-17.0[facility] HospitalLeukocytes [#/volume] corrected for nucleated erythrocytes in Blood by Automated counOrdered By: Sandip Bunting on 59-75-8553AKV corrected for nucl RBC Auto (Bld) [#/Vol]Leukocytes [#/volume] corrected for nucleated erythrocytes in Blood by Automated coun4.1-10.5FMartin Memorial Hospital Lymphocytes Auto (Bld) [#/Vol]Ordered By: Sandip Bunting on 03-02-2024 Lymphocytes (Bld) [#/Vol]Lymphocytes [#/volume] in Blood by Automated countLow 1.00-4.8[facility]len[facility] HospitalLymphocytes/100 WBC Auto (Bld)Ordered By: Sandip Bunting on 27-99-2713Hxcjogmeslr/100 WBC (Bld)Lymphocytes/100 leukocytes in Blood by Automated count.[facility]'Bleness HospitalMCH Auto (RBC) [Entitic mass]Ordered By: Sandip Bunsantiago on 38-33-7225HRR (RBC) [Entitic mass]MCH [Entitic mass] by Automated count27.5-35.2FMartin Memorial HospitalMCHC Auto (RBC) [Mass/Vol]Ordered By: Sandip Aguirre on 66-05-7496JOIS (RBC) [Mass/Vol]MCHC [Mass/volume] by Automated count32.5-35.6FMartin Memorial HospitalMCV Auto (RBC) [Entitic vol]Ordered By: Sandip Bunting on 76-26-0957FFQ (RBC) [Entitic vol]MCV [Entitic volume] by Automated countHigh 83.5-101Ohio[facility]len[facility] HospitalMonocytes Auto (Bld) [#/Vol]Ordered By: Sandip Bunting on 47-35-1627Xgnttswjg (Bld) [#/Vol]Automated blood monocyte count0.0-0.8[facility] HospitalMonocytes/100 WBC Auto (Bld)Ordered By: Sandip Bunting on 18-84-7476Dmmfztbdp/100 WBC (Bld)Automated monocyte %. [facility]len[facility] HospitalNeutrophils Auto (Bld) [#/Vol]Ordered By: Sandip Bunting on 82-59-1255Bsnwjvztgla (Bld) [#/Vol]Neutrophils [#/volume] in Blood by Automated count1.8-7.7FMartin Memorial HospitalNeutrophils/100 WBC Auto (Bld)Ordered By: Sandip Bunting on 90-32-4800Uxbkvybwsir/100 WBC (Bld) Automated neutrophil %.[facility] HospitalNo Panel Information Ordered By: Sandip Bunting on 77-30-6727Lxsqteyqi GFR (CKD-EPI)43.402 mL/Min [facility] HospitalPharmacy Creatinine Clearance (ChemN/AFMartin Memorial HospitalNucleated erythrocytes [Presence] in Blood by Automated countOrdered By: Sandip Bunting on 52-56-9506Btizgxcig RBC Auto Ql (Bld) Nucleated erythrocytes [Presence] in Blood by Automated count0-0.5FMartin Memorial HospitalPlatelet mean volume Auto (Bld) [Entitic vol]Ordered By: Sandip Bunting on 67-56-6529Avdjcsql mean volume (Bld) [Entitic vol]Platelet mean volume [Entitic volume] in Blood by Automated count6.6-10.1FMartin Memorial HospitalPlatelets Auto (Bld) [#/Vol]Ordered By: Sandip Bunting on 51-58-7291Nfpgfbhqw (Bld) [#/Vol]Platelets [#/volume] in Blood by Automated dazku729-324PmguwhcdaOhiohealth O'Bleness HospitalPotassium [Moles/volume] in Serum or PlasmaOrdered By: Sandip Bunting on 71-08-1173Ldmzvhzdf [Moles/Vol]Potassium [Moles/volume] in Serum or Plasma3.5-5.1FMartin Memorial HospitalProtein [Mass/volume] in Serum or PlasmaOrdered By: Sandip Bunting on 55-94-8626Fggignr [Mass/Vol]Protein [Mass/volume] in Serum or PlasmaLow6.4-8.9[facility]'Blen[facility] HospitalRBC Auto (Bld) [#/Vol]Ordered By: Sandip Bunting on 48-10-0362OZW (Bld) [#/Vol]Erythrocytes [#/volume] in Blood by Automated countLow3.90-5.60 [facility] Hospitalerum or plasma albumin/globulin mass ratio Ordered By: Sandip Bunting on 61-57-8712Jradcqo/Globulin [Mass ratio]Serum or plasma albumin/globulin mass ratioHighland District Hospitalerum or plasma anion gap determinationOrdered By: Sandip Bunting on 47-32-8367Anjcn gap [Moles/Vol]Serum or plasma anion gap determination6.0-15.0[facility] Hospitalodium [Moles/volume] in Serum or PlasmaOrdered By: Sandip Bunting on 54-57-2392Kyciyf [Moles/Vol]Sodium [Moles/volume] in Serum or PlasmaLow 136-145[facility]Blen[facility] HospitalUrea nitrogen [Mass/volume] in Serum or PlasmaOrdered By: Sandip Bunting on 49-60-7468Mcsr nitrogen [Mass/Vol]Urea nitrogen [Mass/volume] in Serum or Plasma7-25[facility] WBC Auto (Bld) [#/Vol]Ordered By: Sandip Bunting on 02-95-2090KJE (Bld) [#/Vol] Leukocytes [#/volume] in Blood by Automated count4.1-10.5FMartin Memorial HospitalANION GAPon 98-85-4775Izmfl gap [Moles/Vol]12.0 mmol/LNormal 8.0-16.0[facility] Medical CenterComment on above:Result Comment: ANION GAP = Sodium -(Chloride + CO2)Performed By: #### ANION, CBCND, EGFR1, BMP #### [facility] [address] [place] [address]Nfcck [place] 41-78-0265Fmvll gap [Moles/Vol]12.0 mmol/L8.0 - 16.0 meq/LBon [facility] Lodi HospitalComment on above:ANION GAP = Sodium -(Chloride + CO2) Performed at [facility] [address] [place] [address] BASIC METABOL PANELon 74-23-0699Uimmwqx [Mass/Vol]8.5 mg/dLNormal8.5-10.5SSaint Mark's Medical CenterComment on above:Performed By: #### ANION, CBCND, EGFR1, BMP #### [facility] [address] [address]Utuckeai [Moles/Vol]96 mmol/IAcm52-038PrzprPampa Regional Medical Center Comment on above:Performed By: #### ANION, CBCND, EGFR1, BMP #### [facility] [address] [place] [address]67[address]FH1 [Moles/Vol]23 mmol/UEbflxb90-93DceqePampa Regional Medical Center Comment on above:Performed By: #### ANION, CBCND, EGFR1, BMP #### [facility] [address] [address]Leihqkbfrb [Mass/Vol]1.5 mg/dLHigh0.4-1.2SSaint Mark's Medical CenterComment on above:Performed By: #### ANION, CBCND, EGFR1, BMP #### [facility] [address] [place] [address]90[address]Bptmgfy [Mass/Vol]100 mg/lHBqgiih57-554KdtelPampa Regional Medical Center Comment on above:Performed By: #### ANION, CBCND, EGFR1, BMP #### [facility] [address] [place] [address] 612[address]Kgmlllxmw [Moles/Vol]3.7 mmol/LNormal3.5-5.2SSaint Mark's Medical CenterComment on above:Performed By: #### ANION, CBCND, EGFR1, BMP #### [facility] [address], [place] [address]Lucjzp [Moles/Vol]131 mmol/AFoq572-232HaqavPampa Regional Medical Center Comment on above:Performed By: #### ANION, CBCND, EGFR1, BMP #### [facility] [address], [place] [address]Vsfv nitrogen [Mass/Vol]30 mg/dLHigh7-22Pampa Regional Medical CenterComment on above:Performed By: #### ANION, CBCND, EGFR1, BMP #### [facility] [address], [place] [address]Mjgah metabolic 2000 panelon 98-89-5195Xwkjduf [Mass/Vol]8.5 mg/dL 8.5 - 10.5 mg/dLBon Secours Barney Children'S Medical Centery [facility] Butler HospitalComment on above:Performed at [facility] [address], [place] [address]Itviqvkp [Moles/Vol]96 mmol/LLow98 - 111 meq/LBon Secours Mercy HealthCO2 [Moles/Vol]23 mmol/L23 - 33 meq/LBon [facility]ours Mercy HealthCreatinine [Mass/Vol]1.5 mg/dLHigh0.4 - 1.2 mg/dLBon Secours Mercy HealthGlucose [Mass/Vol]100 mg/dL70 - 108 mg/dLBon Secours [facility] Health Potassium [Moles/Vol]3.7 mmol/L3.5 - 5.2 meq/LBon Secours Mercy HealthSodium [Moles/Vol]131 mmol/ASix352 - 145 meq/LBon Secours Mercy HealthUrea nitrogen [Mass/Vol]30 mg/dLHigh7 - 22 mg/dLBon Secours Mercy HealthCBCon 02-27-2024 Erythrocyte distribution width (RBC) [Entitic vol]52.1 mQVexa77.0 - 45.0 fLBon Secours Mercy HealthErythrocyte distribution width (RBC) [Ratio]13.9 %11.5 - 14.5 %[facility] HealthHematocrit (Bld) [Volume fraction]27.6 %Low42.0 - 52.0 %[facility] HealthHemoglobin (Bld) [Mass/Vol]9.2 g/dLLowBon Secours Mercy HealthInterpretation and review of laboratory resultsAbnormalBon [facility] Health System Galion HospitalH (RBC) [Entitic mass]34.2 duTvub96.0 - 33.0 pgRiverside Behavioral Health CenterHC (RBC) [Mass/Vol]33.3 g/dLBon [facility]ita Health System Galion HospitalV (RBC) [Entitic vol]102.6 cOYqyf86.0 - 94.0 fLCarilion Stonewall Jackson HospitalPlatelet mean volume (Bld) [Entitic vol]10.2 fL9.4 - 12.4 fLCarilion Stonewall Jackson HospitalComment on above: Performed at [address] [address]Hqlyynfue (Bld) [#/Vol]282 10*3/uLCarilion Stonewall Jackson HospitalRBC (Bld) [#/Vol]2.69 10*6/uLLow [facility] Jackson HospitalWBC (Bld) [#/Vol]13.6 10*3/uLHighBon [facility] Regional HospitalCBC NO DIFFERENTIALon 96-07-8048Jozbgqefhqw distribution width (RBC) [Ratio]13.9 %Flefxv48.5-14.5SSaint Mark's Medical Center Comment on above:Performed By: #### ANION, CBCND, EGFR1, BMP #### [address] [address]Uxpoyxqxzc (Bld) [Volume fraction]27.6 %Low42.0-52.0Pampa Regional Medical CenterComment on above:Performed By: #### ANION, CBCND, EGFR1, BMP #### [address] [address]Vhukcgeloj (Bld) [Mass/Vol]9.2 g/dLLow14.0-18.0Pampa Regional Medical CenterComment on above:Performed By: #### ANION, CBCND, EGFR1, BMP #### [facility] [address] [place] [address]MQU (RBC) [Entitic mass]34.2 ldCosw78.0-33.0Pampa Regional Medical CenterComment on above:Performed By: #### ANION, CBCND, EGFR1, BMP #### [facility] [address] [place] [address]OTOQ (RBC) [Mass/Vol]33.3 g/mDQeoobu00.2-35.5SSaint Mark's Medical CenterComment on above:Performed By: #### ANION, CBCND, EGFR1, BMP #### [facility] [address] [place] [address]MNB (RBC) [Entitic vol]102.6 xGAfze73.0-94.0P[facility] Medical CenterComment on above:Performed By: #### ANION, CBCND, EGFR1, BMP #### [facility] [address] [place] [address]BOONIAJP646 thou/bx1Usargy848-688MfrolPampa Regional Medical Center Comment on above:Performed By: #### ANION, CBCND, EGFR1, BMP #### [facility] [address] [place] [address]Hdgjvazz mean volume (Bld) [Entitic vol]10.2 fLNormal9.4-12.4SSaint Mark's Medical CenterComment on above:Performed By: #### ANION, CBCND, EGFR1, BMP #### [facility] [address] [address]XQT2.69 mill/uj8Drp5.70-6.10P[facility] Regional Medical CenterComment on above:Performed By: #### ANION, CBCND, EGFR1, BMP #### [facility] [address] [place] [address]VAA-SD03.1 fOLkef24.0-45.0Pampa Regional Medical CenterComment on above:Performed By: #### ANION, CBCND, EGFR1, BMP #### [facility] [address] [place] [address]QRI18.6 thou/nn6Drdc9.8-10.8P[facility] Regional Medical CenterComment on above:Performed By: #### ANION, CBCND, EGFR1, BMP #### [facility] [address] [place] [address]KEC Rhythm Stripon 17-47-4308MUXKFWJSxtCarilion Roanoke Community HospitalBon [facility] HospitalGFR, ESTIMATEDon 30-13-4133FBV/1.73 sq M.predicted MDRD (S/P/Bld) [Vol rate/Area]46 mL/min/{1.73_m2}Abnormal>60Bon [facility] HospitalComment on above:Pediatric calculator link https://www.kidney.org/professionals/kdoqi/gfr_calculatorped Effective [...] that affects renal tubular secretion. Performed at [facility] [employer] [address] [address] Result Comment: Pediatric calculator link https://www.kidney.org/professionals/kdoqi/gfr_calculatorped Effective [...] By: #### ANION, CBCND, EGFR1, BMP #### [employer] [address] [place] [address]Su Panel Informationon 90-88-0191Qczretkbsiubbj and review of laboratory resultsAbnormalSouthern Virginia Regional Medical CenterANION GAPon 72-50-0972Sovxv gap [Moles/Vol]13.0 mmol/LNormal8.0-16.0P[facility] Medical CenterComment on above:Result Comment: ANION GAP = Sodium -(Chloride + CO2)Performed By: #### NTBNP, TSH3, HH #### [employer] [address], [place] [address]Lazyj Gapon 91-22-3646Tvlwo gap [Moles/Vol]13.0 mmol/L8.0 - 16.0 meq/LBon [facility] HospitalComment on above:ANION GAP = Sodium -(Chloride + CO2) Performed at [facility] [address] [place] [address]96[address] BASIC METABOL PANELon 28-48-8953Expvqco [Mass/Vol]8.9 mg/dLNormal8.5-10.5SSaint Mark's Medical CenterComment on above:Performed By: #### REINA CORRALES, #### [facility] [address] [place] [address]Qbwdjhcm [Moles/Vol]97 mmol/MExt05-676NwxisPampa Regional Medical Center Comment on above:Performed By: #### REINA CORRALES, #### [facility] [address] [place] [address]VH4 [Moles/Vol]24 mmol/NHykqsy69-03CdmrnPampa Regional Medical Center Comment on above:Performed By: #### REINA CORRALES, #### [facility] [address] [place] [address]Rtsscrelon [Mass/Vol]1.2 mg/dLNormal0.4-1.2SSaint Mark's Medical CenterComment on above:Performed By: #### REINA CORRALES, #### [facility] [address] [place] [address]Lpmkrwv [Mass/Vol]109 mg/kOWyqs06-717XktqaPampa Regional Medical Center Comment on above:Performed By: #### REINA CORRALES, #### [facility] [address] [place] [address]Vexrfclfa [Moles/Vol]3.5 mmol/LNormal3.5-5.2SSaint Mark's Medical CenterComment on above:Performed By: #### REIAN CORRALES, HH #### [facility] [address] [place] [address]Uvnrrx [Moles/Vol]134 mmol/CLte987-207NydkkPampa Regional Medical Center Comment on above:Performed By: #### REINA CORRALES, HH #### [facility] [address], [place] [address]Bqmz nitrogen [Mass/Vol]21 mg/dLNormal7-22SaSeymour HospitalComment on above:Performed By: #### NTBNP, TSH3, #### [facility] [address], [place] [address]Wezyg metabolic 2000 panelon 53-02-5491Mauweiv [Mass/Vol]8.9 mg/dL 8.5 - 10.5 mg/dLBon [facility] HospitalComment on above:Performed at [facility] [address], [place] [address]Kgjdzozi [Moles/Vol]97 mmol/LLow98 - 111 meq/LBon SecVista [facility] Hospital HealthCO2 [Moles/Vol]24 mmol/L23 - 33 meq/LBon [facility] HospitalCreatinine [Mass/Vol]1.2 mg/dL0.4 - 1.2 mg/dLBon [facility] HospitalGlucose [Mass/Vol]109 mg/gQBapg76 - 108 mg/dLBon [facility] HospitalInterpretation and review of laboratory resultsAbnormalBon [facility] HospitalPotassium [Moles/Vol]3.5 mmol/L3.5 - 5.2 meq/LBon [facility] Sodium [Moles/Vol]134 mmol/OBat680 - 145 meq/LBon [facility] HospitalUrea nitrogen [Mass/Vol]21 mg/dL7 - 22 mg/dLBon [facility] HospitalGFR, ESTIMATEDon 92-72-2183JGW/1.73 sq M.predicted MDRD (S/P/Bld) [Vol rate/Area]60 mL/min/{1.73_m2}Normal>60Bon [facility] HospitalComment on above:Pediatric calculator link https://www.kidney.org/professionals/kdoqi/gfr_calculatorped Effective [...] that affects renal tubular secretion[place] [address] Result Comment: Pediatric calculator link https://www.kidney.org/professionals/kdoqi/gfr_calculatorped Effective [...] tubular secretion.Performed By: #### REINA CORRALES, #### [address] [address]WER,HCTon 54-39-2986Xsiwxxozlg (Bld) [Volume fraction]27.7 %Low 42.0-52.0[facility] Jackson HospitalComment on above:Performed at [address] [address]Mdcxqbeis By: #### REINA CORRALES, #### [address] [address]Qxefaxdcxs (Bld) [Mass/Vol]9.3 g/dLLow14.0-18.0[facility] on above:Performed By: #### REINA CORRALES, #### [address] [address]Xygqimfiwd and Hematocrit panel (Bld)on 69-72-4120Ourlywkgiwxqiq and review of laboratory resultsAbnormalBon [facility] Regional HospitalNo Panel Informationon 30-43-2168Ajk [facility] HospitalANION GAPon 80-38-1890Moibw gap [Moles/Vol]11.0 mmol/LNormal8.0-16.0P[facility] Medical CenterComment on above:Result Comment: ANION GAP = Sodium -(Chloride + CO2) Performed By: #### POCGL #### [address] [address]Meruy Gapon 84-55-8737Tkunb gap [Moles/Vol]11.0 mmol/L8.0 - 16.0 meq/LBon [facility] HospitalComment on above:ANION GAP = Sodium -(Chloride + CO2) Performed at [facility] [address] [place] [address] BASIC METABOL PANELon 08-58-7715Snzeukp [Mass/Vol]8.5 mg/dLNormal8.5-10.5SSaint Mark's Medical CenterComment on above:Performed By: #### POCGL #### [address] [address]Syctmgma [Moles/Vol]97 mmol/QUxv87-398NkwnxPampa Regional Medical Center Comment on above:Performed By: #### POCGL #### [address] [address]XY6 [Moles/Vol]26 mmol/ODzbrcl08-87XuoxxPampa Regional Medical Center Comment on above:Performed By: #### POCGL #### [address] [address]Briuiwvkku [Mass/Vol]1.1 mg/dLNormal0.4-1.2SSaint Mark's Medical CenterComment on above:Performed By: #### POCGL #### [address] [address]Awtopds [Mass/Vol]100 mg/tVAdoymw49-864GslxlPampa Regional Medical Center Comment on above:Performed By: #### POCGL #### [address] [address]Wteztnjwu [Moles/Vol]2.9 mmol/LLow3.5-5.2SSaint Mark's Medical CenterComment on above:Performed By: #### POCGL #### [facility] [address] [place] [address]Zhduuy [Moles/Vol]134 mmol/XUnp077-722TipouPampa Regional Medical Center Comment on above:Performed By: #### POCGL #### [facility] [address] [place] [address]Nzom nitrogen [Mass/Vol]17 mg/dLNormal7-22P[facility] Medical CenterComment on above:Performed By: #### POCGL #### [address] [address]ZUNEL CULTUREon 19-73-1698Iisvazew identified Cx Nom (Bld) MICROBIOLOGY REPORT [facility], [address] [place] [address], [facility] PATIENT: TAVO WALLIS LOCATION: [facility] : 1940 AGE: 83 SEX: M ADM: 02/21/24 Att. Physician: RANDI BURRIS Order Id: [id number] Req. Physician: RANDA KING Source: agspe-Mwnhk-sawiyvnjph <5.5oz./set volume Site: Peripheral Vein Collected: 02/25/24 07:19 Current Antibiotics: not stated Antibiotics comment: C O M M E N T S Source:->Blood STATUS OF ORDERED AND REPORTED TESTS BLOOD CULTURE FINAL 03/01/24 BLOOD CULTURE FINAL 03/01/24 08:06 02/26/24 No growth 24 hours. 02/27/24 No growth 48 hours. 03/01/24 No growth at 5 daysNormalSSaint Mark's Medical CenterBacteria identified Cx Nom (Bld)MICROBIOLOGY REPORT [facility], [address] [place] [address], [facility] PATIENT: TAVO WALLIS LOCATION: [facility] : 1940 AGE: 83 SEX: M ADM: 02/21/24 Att. Physician: RANDI BURRIS Order Id: [id number] Req. Physician: ORIANA, OLUREMI Source: xdguz-Hvxdr-advqdmdcox <5.5oz./set volume Site: Peripheral Vein Collected: 02/25/24 07:19 Current Antibiotics: not stated Antibiotics comment: STATUS OF ORDERED AND REPORTED TESTS BLOOD CULTURE FINAL 03/01/24 BLOOD CULTURE FINAL 03/01/24 08:06 02/26/24 No growth 24 hours. 02/27/24 No growth 48 hours. 03/01/24 No growth at 5 daysNoTexoma Medical CenterBahighlands arh [facility] metabolic 2000 panelon 74-29-4487Lxvipll [Mass/Vol]8.5 mg/dL8.5 - 10.5 mg/dLBon SecBethesda North HospitalComment on above:Performed at [facility] [address] [place] [address]Pumsckbr [Moles/Vol]97 mmol/LLow98 - 111 meq/LBon SecMary Bridge Children's Hospitaly HealthCO2 [Moles/Vol]26 mmol/L23 - 33 meq/LBon SecVista Surgical Hospital HealthCreatinine [Mass/Vol]1.1 mg/dL0.4 - 1.2 mg/dLBon Secours [facility]igh HealthGlucose [Mass/Vol]100 mg/dL70 - 108 mg/dLBon [facility]ours [facility] HealthInterpretation and review of laboratory resultsAbnormalBon [facility] Medical Centery HealthPotassium [Moles/Vol]2.9 mmol/LLow3.5 - 5.2 meq/LBon SecVista Surgical Hospital HealthSodium [Moles/Vol]134 mmol/LLow 135 - 145 meq/LBon SecVista Surgical Hospital HealthUrea nitrogen [Mass/Vol]17 mg/dL7 - 22 mg/dLBon SecVista Surgical Hospital HealthCBCon 95-44-3501Gujehfnzmqj distribution width (RBC) [Entitic vol]57.1 aOAayh02.0 - 45.0 fLBon [facility] Interpretation and review of laboratory resultsAbnormalBon SecVista Surgical Hospital Health Platelets (Bld) [#/Vol]180 10*3/uLBon Secours [facility] Children'[facility] Medical Centery HealthRBC (Bld) [#/Vol]2.49 10*6/uLLowBon Secours [facility] Children'S Medical Centery HealthWBC (Bld) [#/Vol]11.7 10*3/uLHighBon Secours [facility] HealthBon [facility]ours Mercy HealthCBC NO DIFFERENTIALon 57-20-8369Uzucvfzilxn distribution width (RBC) [Ratio]14.3 %Meffhb66.5-14.5Bon [facility] Comment on above:Performed By: #### REINA CORRALES, #### [facility] [address] [place] [address]Ctofdhdngw (Bld) [Volume fraction]27.1 %Low42.0-52.0[facility] on above:Performed By: #### REINA CORRALES, HH #### [facility] [address] [place] [address]Bdkbmqeinx (Bld) [Mass/Vol]8.8 g/dLLow14.0-18.0Bon [facility] on above:Performed By: #### REINA CORRALES, HH #### [facility] [address] [place] [address]WNK (RBC) [Entitic mass]35.3 fcDjnt33.0-33.0Bon [facility] HospitalComment on above:Performed By: #### REINA CORRALES, #### [facility] [address] [place] [address]24[address]BMKP (RBC) [Mass/Vol]32.5 g/eWVrzrom54.2-35.5Bon [facility] on above:Performed By: #### REINA CORRALES, #### [facility] [address] [place] [address] 23896LWW (RBC) [Entitic vol]108.8 cBQnln55.0-94.0Bon [facility] on above:Performed By: #### REINA CORRALES, #### [facility] [address] [place] [address]WOBFGCCL123 thou/wn4Lvnvrs741-416UygqwPampa Regional Medical Center Comment on above:Performed By: #### REINA CORRALES, #### [facility] [address] [place] [address] 229[address]Yoyhtjrq mean volume (Bld) [Entitic vol]10.0 fLNormal9.4-12.4Bon [facility] Centerup [facility] on above:Performed at [facility] [address] [address]Yiqmgllfi By: #### REINA CORRALES, JE #### [facility] [employer] [address] [place] [address]15[address]ZBS1.49 mill/ej0Nhb1.70-6.10[facility] Medical CenterComment on above:Performed By: #### REINA CORRALES, JE #### [facility] [employer] [address] [place] [address] 19018TGB-MP78.1 xFTpmy24.0-45.0[facility] Medical CenterComup health system on above:Performed By: #### REINA CORRALES, JE #### [facility] [employer] [address] [address]SYJ59.7 thou/yu6Lrfp1.8-10.8[facility] Medical CenterComment on above:Performed By: #### REINA CORRALES, JE #### [facility] [employer] [address] [address]IMJ, ESTIMATEDon 00-63-1877OYV/1.73 sq M.predicted MDRD (S/P/Bld) [Vol rate/Area]67 mL/min/{1.73_m2}Normal>60Bon [facility] on above:Pediatric calculator link https://www.kidney.org/professionals/kdoqi/gfr_calculatorped Effective Dec [...] that affects renal tubular secretion. Performed at [facility] [address] [address] Result Comment: Pediatric calculator link https://www.kidney.org/professionals/kdoqi/gfr_calculatorped Effective [...] renal tubular secretion.Performed By: #### POCGL #### [address] [address]FHY,HCTon 36-38-5038Abjchcpplj (Bld) [Volume fraction]25.2 %Low 42.0-52.0[facility] on above:Performed at [address] [address]Asaosnagc By: #### POCGL #### [address] [address]Mxuobxcabh (Bld) [Mass/Vol]8.2 g/dLLow14.0-18.0[facility] on above:Performed By: #### POCGL #### [address] [address]Okijfafoyh and Hematocrit panel (Bld)on 04-15-9794Zncrdsrnsqkwuk and review of laboratory resultsAbnormalBon [facility] Regional HospitalInfluenza virus A and B RNA and SARS-CoV-2 (COVID-19) N gene panel SMITHA+probe (Resp)on 20-58-8264BVPFU RNA SMITHA+probe Ql (Resp)Not detectedNOT DETECTEDCarilion Stonewall Jackson HospitalFLUBV RNA SMITHA+probe Ql (Resp)Not detectedNOT DETECTEDSentara Martha Jefferson Hospital on above:Performed at [address] [address]LXTN-CmN-1 (COVID-19) RNA SMITHA+probe Ql (Resp)Not detectedNOT DETECTEDSentara Martha Jefferson Hospital on above:Not Detected results do not [...] in nasopharyngeal and nasal swab specimens. Bon [facility] HospitalLACTIC ACID, SEPSISon 50-44-9627EHCHUC ACID, SEPSIS0.9 mmol/LNormal0.5-1.9P[facility] Medical CenterComment on above:Performed By: #### NTBNP, TSH3, #### [address] [address]XWCXYS ACID, SEPSIS1.0 mmol/LNormal0.5-1.9P[facility] Medical CenterComment on above:Performed By: #### LACDS #### [address] [address]Idjefce, Sepsison 49-51-0552Ofmjyp Acid, Sepsis0.9 mmol/L0.5 - 1.9 mmol/LBon [facility] HospitalComment on above:Performed at [facility] [address] [place] [address] 438[address]Lyz [facility] HospitalLactic Acid, Sepsis 1.0 mmol/L0.5 - 1.9 mmol/LBon [facility] HospitalComment on above:Performed at [facility] [place] [address]01[facility] HospitalNo Panel Informationon 68-71-2166Fsx [facility] HospitalSARS-COV-2 & INFLUENZA A/Bon 89-74-6896OSXKZQPMT A, RT-PCRNot detectedNormalNOT DETECTEDPampa Regional Medical CenterComment on above:Performed By: #### CVFLU #### [address] [address]KUXAZGHIR B, RT-PCRNot detectedNormalNOT DETECTEDPampa Regional Medical CenterComment on above:Performed By: #### CVFLU #### [address] [address]PAEP-JwA-3 (COVID-19) RNA SMITHA+probe Ql (Unsp spec)Not detected NormalNOT DETECTEDPampa Regional Medical CenterComment on above:Result Comment: Not Detected results do [...] nasal swab specimens.Performed By: #### CVFLU #### [address] [address]CDRCG GAPon 41-52-9800Opfvz gap [Moles/Vol]11.0 mmol/LNormal 8.0-16.0P[facility] Medical CenterComment on above:Result Comment: ANION GAP = Sodium -(Chloride + CO2)Performed By: #### POCGL #### [address] [address]Bqcwu Gapon 64-68-3999Bvdvp gap [Moles/Vol]11.0 mmol/L8.0 - 16.0 meq/LBon [facility] HospitalComment on above:ANION GAP = Sodium -(Chloride + CO2) Performed at [facility] [address] [address] BASIC METABOL PANELon 93-16-7733Ehptxue [Mass/Vol]8.6 mg/dLNormal8.5-10.5SSaint Mark's Medical CenterComment on above:Performed By: #### POCGL #### [address] [address]Oahokfre [Moles/Vol]104 mmol/RKldgpa28-844JxrtgPampa Regional Medical CenterComment on above:Performed By: #### POCGL #### [address] [address]MF9 [Moles/Vol]23 mmol/QYiounk62-40BijopPampa Regional Medical Center Comment on above:Performed By: #### POCGL #### [address] [address]Fbozmkopnv [Mass/Vol]1.2 mg/dLNormal0.4-1.2SSaint Mark's Medical CenterComment on above:Performed By: #### POCGL #### [facility] [address] [place] [address]Myazznm [Mass/Vol]126 mg/iYGuvl96-085FgmysPampa Regional Medical Center Comment on above:Performed By: #### POCGL #### [facility] [address] [place] [address]Tunfzwehl [Moles/Vol]3.9 mmol/LNormal3.5-5.2SSaint Mark's Medical CenterComment on above:Performed By: #### POCGL #### [facility] [address] [place] [address]Tkuuth [Moles/Vol]138 mmol/YArbxoi062-650WmszfPampa Regional Medical CenterComment on above:Performed By: #### POCGL #### [facility] [address] [place] [address] 44[address]Dubs nitrogen [Mass/Vol]20 mg/dLNormal7-22P[facility] Medical CenterComment on above:Performed By: #### POCGL #### [address] [address]Ldyno metabolic 2000 panelon 75-32-9547Uklhtvz [Mass/Vol]8.6 mg/dL 8.5 - 10.5 mg/dLBon SecMary Bridge Children's Hospitaly [facility] Butler HospitalComment on above:Performed at [facility] [address] [place] [address]Ervuieve [Moles/Vol]104 mmol/L98 - 111 meq/LBon Secours Mercy HealthCO2 [Moles/Vol]23 mmol/L23 - 33 meq/LBon [facility]ours [facility] HealthCreatinine [Mass/Vol]1.2 mg/dL0.4 - 1.2 mg/dLBon Secours Mercy HealthGlucose [Mass/Vol]126 mg/hKOakc48 - 108 mg/dLBon Secours Mercy HealthInterpretation and review of laboratory resultsAbnormalBon Secours Mercy HealthPotassium [Moles/Vol]3.9 mmol/L3.5 - 5.2 meq/LBon [facility] Health Sodium [Moles/Vol]138 mmol/L135 - 145 meq/LBon Secours Mercy HealthUrea nitrogen [Mass/Vol]20 mg/dL7 - 22 mg/dLBon Secours Mercy HealthCT HEAD WO CONTRASTon 46-81-3262NA HEAD WO CONTRASTCT head without contrast COMPARISON: [...] Signed by: Dudley Mattson MD 02/24/24 Final resultNormalSSaint Mark's Medical CenterCT Head WO contraston . No acute intracranial abnormality. 2. Global cerebral volume loss and chronic microvascular ischemic changes. This document has been electronically signed by: Dudley Mattson MD on 02/24/2024 07:43 PM All CTs at this facility use dose modulation techniques and iterative reconstructions, and/or weight-based dosing when appropriate to reduce radiation to a low as reasonably achievable.[facility] without contrast COMPARISON: None FINDINGS: Global cerebral volume loss and chronic microvascular ischemic changes. No acute intracranial hemorrhage, extra-axial fluid collection, mass effect, or midline shift. Ventricular system and basilar cisterns are patent. Hensley-white matter differentiation is maintained. No gross orbital abnormality. No suspicious or acute bone lesion. Mastoid air cells and paranasal sinuses are predominantly clear. [facility] Dudley Leger MD - 02/24/2024 CT [...] radiation to a low as reasonably achievable. [facility] HospitalRadiology Study observation (narrative)[facility] HospitalZUGGI [facility] HospitalCT Head WO contrastOrdered By: Dudley Mattson on 30-85-1244Xcg [facility] HospitalGFR, ESTIMATEDon 49-24-8372WKA/1.73 sq M.predicted MDRD (S/P/Bld) [Vol rate/Area]60 mL/min/{1.73_m2}Normal>60Bon [facility] on above:Pediatric calculator link https://www.kidney.org/professionals/kdoqi/gfr_calculatorped Effective Dec [...] that affects renal tubular secretion. Performed at [facility] [address] [place] [address] Result Comment: Pediatric calculator link https://www.kidney.org/professionals/kdoqi/gfr_calculatorped Effective [...] By: #### ANION, CBCND, EGFR1, BMP #### [facility] [address] [place] [address] 62470OFBAXFL POCon 99-13-0089Setubos [Mass/Vol]126 mg/uHJzsv00-213Wtb [facility] on above:Performed at [facility] [address] [place] [address] 16814Dwgylptpk By: #### POCGL #### [address] [address]Xtlbbag Auto test strip (Bld) [Mass/Vol]on 02-24-2024 Interpretation and review of laboratory resultsAbnormCarilion Stonewall Jackson Hospital Bon [facility] HospitalHGB,HCTon 53-46-1100Unevhpimto (Bld) [Volume fraction] 26.3 %Low42.0-52.0Bon [facility] on above:Performed at [facility] [address] [place] [address] 05534Xmacdaulg By: #### POCGL #### [address] [address]Gzvvjudlse (Bld) [Mass/Vol]8.3 g/dLLow14.0-18.0Bon [facility] on above:Performed By: #### POCGL #### [address] [address]Slrnbrzymz and Hematocrit panel (Bld)on 42-81-8021Ddvoksbacynkso and review of laboratory resultsAbnoDe Smet Memorial HospitalNo Panel Informationon 26-58-3960Fmf [facility] HospitalPortable XR Chest AP single viewon . Naqtuzaz-kr-wtpobq cardiomegaly with pulmonary edema and pleural effusions. Findings are consistent with CHF. This document has been electronically signed by: Dudley Mattson MD on 02/24/2024 09:42 PMWFITZGIBBON HOSPITAL CONSOLIDATED1 view chest x-ray Comparison: None Findings: Acggwwej-fv-kmhilv cardiomegaly. Small left and trace right pleural effusions. Cephalization pulmonary vasculature with diffusely increased interstitial markings and diffuse hazy alveolar opacity. No pneumothorax. [facility] Dudley Leger MD - 02/24/2024 1 view chest x-ray Comparison: None Findings: Dltneyya-zc-jqwqhw cardiomegaly. Small left and trace right pleural effusions. Cephalization pulmonary vasculature with diffusely increased interstitial markings and diffuse hazy alveolar opacity. No pneumothorax. IMPRESSION: 1. Opiypbuw-ps-dhmpzb cardiomegaly with pulmonary edema and pleural effusions. Findings are consistent with CHF. This document has been electronically signed by: Dudley Mattson MD on 02/24/2024 09:42 PM [facility] CenterRadiology Study observation (narrative)[facility] HospitalXR CHEST PORTABLEon 99-03-3237IJ CHEST PORTABLE1 view chest x-ray Comparison: None Findings: Ozpmhzhi-ij-kzfnca cardiomegaly. Small left and trace right pleural effusions. Cephalization pulmonary vasculature with diffusely increased interstitial markings and diffuse hazy alveolar opacity. No pneumothorax. IMPRESSION: 1. Ymwiolch-zl-nroxku cardiomegaly with pulmonary edema and pleural effusions. Findings are consistent with CHF. This document has been electronically signed by: Dudley Mattson MD on 02/24/2024 09:42 PM Interpreted by: Dudley Mattson MD Signed by: Dudley Mattson MD 02/24/24 Final resultNormalSSaint Mark's Medical CenterANION GAPon 85-34-3324Ncudf gap [Moles/Vol]10.0 mmol/LNormal8.0-16.0Pampa Regional Medical CenterComment on above: Result Comment: ANION GAP = Sodium -(Chloride + CO2)Performed By: #### GREG CORRALES3, #### [facility] [address], [place] [address]Oxldd Gapon 80-09-5378Uiwzh gap [Moles/Vol]10.0 mmol/L8.0 - 16.0 meq/LBon [facility] HospitalComment on above:ANION GAP = Sodium -(Chloride + CO2) Performed at [facility] [address] [place] [address] BASIC METABOL PANELon 11-48-8435Aarbpcy [Mass/Vol]8.4 mg/dLLow8.5-10.5SSaint Mark's Medical CenterComment on above:Performed By: #### GREG CORRALES3, #### [facility] [address], [place] [address]Pfcppewi [Moles/Vol]105 mmol/ECgrizg75-161MjnwoPampa Regional Medical CenterComment on above:Performed By: #### REINA CORRALES, HH #### [facility] [address] [place] [address] 004[address]XQ8 [Moles/Vol]22 mmol/VJuo13-54NmfqlPampa Regional Medical CenterComment on above:Performed By: #### GREG CORRALES3, HH #### [facility] [address] [place] [address] 13402Lkyjydozob [Mass/Vol]1.3 mg/dLHigh0.4-1.2SSaint Mark's Medical CenterComment on above:Performed By: #### REINA CORRALES, HH #### [facility] [address] [place] [address] 97834Wmyaotp [Mass/Vol]148 mg/rGLfuz78-576UmxbfPampa Regional Medical Center Comment on above:Performed By: #### REINA CORRALES, HH #### [facility] [address] [place] [address]33[address]Mvjnfqsjm [Moles/Vol]4.3 mmol/LNormal3.5-5.2SSaint Mark's Medical CenterComment on above:Performed By: #### REINA CORRALES, HH #### [facility] [address] [place] [address] 043[address]Rgbwvk [Moles/Vol]137 mmol/KPibupj074-247DjhqkPampa Regional Medical CenterComment on above:Performed By: #### REINA CORRALES, #### [facility] [address] [place] [address] 53[address]Wzhq nitrogen [Mass/Vol]24 mg/dLHigh7-22Pampa Regional Medical CenterComment on above:Performed By: #### REINA CORRALES, HH #### [facility] [address] [place] [address] 277[address]Lprpy metabolic 2000 panelon 75-44-2432Gmmtykv [Mass/Vol]8.4 mg/dL Low8.5 - 10.5 mg/dLBon [facility] HospitalComment on above:Performed at [facility] [address] [place] [address] 569[address]Fhkopwsz [Moles/Vol]105 mmol/L 98 - 111 meq/LBon [facility] HospitalCO2 [Moles/Vol]22 mmol/LLow23 - 33 meq/L Bon MimoonaCreatinine [Mass/Vol]1.3 mg/dLHigh0.4 - 1.2 mg/dLBon MimoonaGlucose [Mass/Vol]148 mg/uEJhcp32 - 108 mg/dLBon MimoonaPotassium [Moles/Vol]4.3 mmol/L3.5 - 5.2 meq/LBon MimoonaSodium [Moles/Vol]137 mmol/L135 - 145 meq/LBon MimoonaUrea nitrogen [Mass/Vol]24 mg/dLHigh7 - 22 mg/dLBon MimoonaCardiac echo study ProcedureOrdered By: Bambi Huntley on 77-81-2737Qgqarmwph Aorta3.0 cm [employer] Phone: Ascending Aorta Index1.53 cm/m2[facility] [place] Phone: AV Cusp Mmode1.7 cmBanner Boswell Medical Center [place] Phone: AV Peak Xxjfwasi91znUfGdp [place] Phone: AV Peak Velocity1.6 m/sBon [place] Phone: AV Velocity Ratio0.44[employer] Phone: Body surface area Derived from formula2 m2[facility] [place] Phone: EF BP36 %Qjanbaue60 - 100 %[employer] Work Phone: Est. RA Veqorpqp0kkEfSvd [place] Phone: Fractional Shortening 2D18 %28 - 44 %[employer] Phone: Interpretation and review of laboratory results AbnormalEventBug Phone: IVSd1.0 cm0.6 - 1.0 cmEventBug Phone: LA Area 2C22.6 cm2Bon [facility] Work Phone: la Area 4C22.8 cm2Bon [facility] Work Phone: LA Diameter4.4 cmBon [facility] Work Phone: LA Major Axis6.5 cmBon [facility] Work Phone: la Minor Axis6.0 cmBon [facility] Work Phone: LA Size Index2.24 cm/m2Bon [facility] Work Phone: LA Volume BP68 sNWddcucmb26 - 58 mLBon [facility] Work Phone: LA Volume Index BP35 ml/t4Afyvumqz14 - 34 ml/m2Bon [facility] Work Phone: LA Volume Index MOD A2C34 ml/m216 - 34 ml/m2Bon [facility] Work Phone: LA Volume Index MOD A4C33 ml/m216 - 34 ml/m2Bon [facility] Work Phone: LA Volume MOD A2C67 lFOstrnlsv68 - 58 mLBon [place] Work Phone: LA Volume MOD A4C65 lYOzshbhjf49 - 58 mLBon [facility] Work Phone: LV EDV K5U035 mLTapIn.tv [facility] Work Phone: LV EDV N6O789 mLBon [facility] Work Phone: LV EDV Index A2C69 mL/m2Bon [facility] Work Phone: LV EDV Index A4C66 mL/m2Bon [facility] Work Phone: LV Ejection Fraction A2C38 %[employer] Work Phone: LV Ejection Fraction A4C37 %Bon [facility] Work Phone: LV ESV A2C83 mLBon [facility] Work Phone: [phone] ESV A4C82 mLBon [facility] Work Phone: [phone] ESV Index A2C42 mL/m2Bon [facility] Work Phone: [phone] ESV Index A4C42 mL/m2Bon [facility] Work Phone: [phone] IVRT63.0 msBon [facility] Work Phone: [phone] Mass 2D194.4 g88 - 224 gBon [facility] Work Phone: [phone] Mass 2D Index99.2 g/m249 - 115 g/m2Bon [facility] Work Phone: [phone] RWT Ratio0.44Bon [employer] Work Phone: [phone] cm4.2 - 5.9 cmBon [facility] Work Phone: [phone] Index2.55 cm/m2Bon [facility] Work Phone: LVIDs4.1 cmBon [facility] Work Phone: LVIDs Index2.09 cm/m2Bon [facility] Work Phone: [phone] Peak Qdlaupyl1abGqHwj [facility] Work Phone: [phone] Peak Velocity0.7 m/sBon [facility] Work Phone: [phone] cmAbnormal0.6 - 1.0 cmBon [facility] Work Phone: MR Peak Gufvpmxl86baMrJua [employer]Ur[employer] Work Phone: MR Peak Velocity4.5 m/sBon [facility] Work Phone: [phone] E Velocity1.63 m/sBon [facility] Work Phone: PR Max Velocity1.0 m/sBon [place] Phone: Pulmonary Artery OVV5xhMmCfd [place] Phone: [phone] Max Velocity0.8 m/sBon [place] Phone: [phone] Peak Jhuhbnvu1trRoYud [place] Phone: [phone] cmBon [place] Phone: [phone] [place] Phone: [phone] cmAbnormal1.7 cmBon [place] Phone: TR Max Velocity3.02 m/sBon [place] Phone: TR Peak Hftufgtw67gqBoOkm [place] Phone: TV E Wave Velocity0.5 m/sBon [place] Phone: [phone] [place] Phone: Cardiac echo study Procedureon 43-28-6905Fnik Ventricle: Moderately reduced left ventricular systolic function [...] report scanned into cart under care everywhere.[facility] Radiology Study observation (narrative)Bon SecUrigen PharmaceuticalsEKG Rhythm Strip on 82-53-7927EH 93PACEARTBon Secours MeetCute HealthHR 100PACEARTBon Secours MeetCute HealthHR 80PACEARTBon Secours MedPlexusy HealthGFR, ESTIMATEDon 41-18-0064HJX/1.73 sq M.predicted MDRD (S/P/Bld) [Vol rate/Area]55 mL/min/{1.73_m2}Abnormal>60Bon SecUrigen PharmaceuticalsComment on above:Pediatric calculator link https://www.kidney.org/professionals/kdoqi/gfr_calculatorped Effective Dec [...] that affects renal tubular secretion. Performed at [facility] [address] [place] [address] Result Comment: Pediatric calculator link https://www.kidney.org/professionals/kdoqi/gfr_calculatorped Effective [...] secretion.Performed By: #### REINA CORRALES, JE #### [address] [address]HZK,HCTon 63-96-5657Ttyznadzwh (Bld) [Volume fraction]25.3 %Low 42.0-52.0[facility] on above:Performed at [address] [address]Nsxhitmlb By: #### RENIA CORRALES HH #### [address] [address]Vzzdavrmcg (Bld) [Mass/Vol]8.0 g/dLLow14.0-18.0Bon [facility] on above:Performed By: #### REINA CORRALES, #### [address] [address]Mdkxqfwqvo and Hematocrit panel (Bld)on 25-32-0400Phkigumuowsfac and review of laboratory resultsAbnormVCU Health Community Memorial HospitalNo Panel Informationon 87-34-6778Dwkqfdwkvmiuhw and review of laboratory resultsAbnormalSouthern Virginia Regional Medical CenterANION GAPon 60-19-2130Mgxba gap [Moles/Vol]11.0 mmol/LNormal8.0-16.0P[facility] Medical CenterComment on above:Result Comment: ANION GAP = Sodium -(Chloride + CO2)Performed By: #### REINA CORRALES, JE #### [address] [address]Mdvht Gapon 18-39-1634Qhuwy gap [Moles/Vol]11.0 mmol/L8.0 - 16.0 meq/LBon Secours Mercy HealthComment on above:ANION GAP = Sodium -(Chloride + CO2) Performed at [facility] [address] [place] [address] BASIC METABOL PANELon 20-50-0170Ebxgoyi [Mass/Vol]8.5 mg/dLNormal8.5-10.5SSaint Mark's Medical CenterComment on above:Performed By: #### GREG CORRALES3, #### [facility] [address] [place] [address]Lycztimn [Moles/Vol]101 mmol/IYhxaaq85-281GeyfgPampa Regional Medical CenterComment on above:Performed By: #### GREG CORRALES3, HH #### [facility] [address] [place] [address]56[address]CK7 [Moles/Vol]22 mmol/KMjv13-52UvylhPampa Regional Medical CenterComment on above:Performed By: #### GREG CORRALES3, #### [facility] [address] [place] [address]Chchebtqda [Mass/Vol]0.9 mg/dLNormal0.4-1.2SSaint Mark's Medical CenterComment on above:Performed By: #### REINA CORRALES, HH #### [facility] [address] [place] [address] 324[address]Gcsppww [Mass/Vol]165 mg/bJHitt24-938RpxkfPampa Regional Medical Center Comment on above:Performed By: #### GREG CORRALES3, #### [facility] [address] [place] [address] 20745Ltmpkslnf [Moles/Vol]4.2 mmol/LNormal3.5-5.2SSaint Mark's Medical CenterComment on above:Performed By: #### GREG CORRALES3, HH #### [facility] [address] [place] [address] 905[address]Nywbuc [Moles/Vol]134 mmol/YUjn534-735IgzvoPampa Regional Medical Center Comment on above:Performed By: #### GREG CORRALES3, HH #### [facility] [address] [place] [address] 78[address]Saro nitrogen [Mass/Vol]18 mg/dLNormal7-22SaSeymour HospitalComment on above:Performed By: #### NTBNP, TSH3, #### [facility] [address] [place] [address] 436[address]Jeknj metabolic 2000 panelon 71-39-3625Aplhtot [Mass/Vol]8.5 mg/dL 8.5 - 10.5 mg/dLBon [facility] HospitalComment on above:Performed at [facility] [address] [place] [address] 533[address]Iqphnzcr [Moles/Vol]101 mmol/L98 - 111 meq/LBon [facility] HospitalCO2 [Moles/Vol]22 mmol/LLow23 - 33 meq/LBon [facility] HospitalCreatinine [Mass/Vol]0.9 mg/dL0.4 - 1.2 mg/dLBon [facility] HospitalGlucose [Mass/Vol]165 mg/dCXadv10 - 108 mg/dLBon [facility] HospitalInterpretation and review of laboratory resultsAbnormalBon [facility] HospitalPotassium [Moles/Vol]4.2 mmol/L3.5 - 5.2 meq/LBon [facility] Sodium [Moles/Vol]134 mmol/EQkv574 - 145 meq/LBon [facility] HospitalUrea nitrogen [Mass/Vol]18 mg/dL7 - 22 mg/dLBon [facility] HospitalBrain Natriuretic Peptideon 39-77-4870Hhrzzdpddnz peptide.B prohormone N-Terminal IA [Mass/Vol] 4637.0 pg/mLHigh0.0 - 449.0 pg/mLBon [facility] HospitalComment on above: Performed at [facility] [address] [place] [address]40[address]IUU Rhythm Stripon 92-04-0626INMRZETPxv [facility] HospitalHR 120PACEARTBon [facility] HospitalPACEARTCarilion Stonewall Jackson HospitalGFR, ESTIMATEDon 45-07-6065NZG/1.73 sq M.predicted MDRD (S/P/Bld) [Vol rate/Area]85 mL/min/{1.73_m2}Normal>60Bon [facility] HospitalComment on above:Pediatric calculator link https://www.kidney.org/professionals/kdoqi/gfr_calculatorped Effective [...] that affects renal tubular secretion. [place] [address] Result Comment: Pediatric calculator link https://www.kidney.org/professionals/kdoqi/gfr_calculatorped Effective [...] tubular secretion.Performed By: #### SAVANNA, TSH3, #### [address] [address]AHCOAZW POCon 00-00-7533Lniawjz [Mass/Vol]155 mg/dGQvhw17-232Noe [facility] on above:Performed at [address] [address]Xffdpqohe By: #### POCGL #### [address] [address]Dogtjmv Auto test strip (Bld) [Mass/Vol]on 02-22-2024 Interpretation and review of laboratory resultsAbnormalMary Washington HospitalHGB,HCTon 55-23-7580Oaakhncdhf (Bld) [Volume fraction] 28.7 %Low42.0-52.0[facility] on above:Performed at [address] [address]Vybvphsdz By: #### NTTRINIDADP, TSH3, #### [address] [address]Xfntdpacvk (Bld) [Mass/Vol]9.1 g/dLLow14.0-18.0[facility] HospitalComment on above:Performed By: #### REINA CORRALES, JE #### [facility] [address] [place] [address] 67[address]Ewlccdnrby (Bld) [Volume fraction]30.0 %Low42.0-52.0P[facility] Regional Medical CenterComment on above:Performed By: #### REINA CORRALES, JE #### [address] [address]Vvgmgmdxxb (Bld) [Mass/Vol]9.5 g/dLLow14.0-18.0P[facility] Regional Medical CenterComment on above:Performed By: #### REINA CORRALES, #### [address] [address]Akmhpfiqcc and Hematocrit panel (Bld)on 26-76-2493Rgnocmivinyjqn and review of laboratory resultsAbnormVCU Health Community Memorial HospitalHematocrit (Bld) [Volume fraction]30.0 %Low42.0 - 52.0 %Bon [facility] HospitalComment on above:Performed at [facility] [address] [place] [address] 27[address]Mmggmryfqj (Bld) [Mass/Vol]9.5 g/dLLowCarilion Stonewall Jackson Hospital Interpretation and review of laboratory resultsAbnoPioneer Memorial Hospital and Health ServicesNT PRO-B NATRIURETIC PEPTIDEon 19-52-3951Bboeoeoujge peptide B (Bld) [Mass/Vol]4637.0 pg/mLHigh0.0-449.0[facility] Comment on above:Performed By: #### REINA CORRALES, #### [address] [address]Nfhrpuwwvbw peptide.B prohormone N-Terminal [place] [Mass/Vol]on 76-69-1647Bfquowllvwyrhn and review of laboratory resultsAbnoCarilion ClinicNo Panel Informationon 78-04-7033Dop [facility] HospitalTSH DL <= 0.005 mIU/L Qnon 01-57-6705UNU Qn0.678 m[IU]/LBon [facility] HospitalComup health system on above:Performed at [facility] [address] [place] [address]29[address]NWS THIRD GENERATIONon 10-37-4408VYL THIRD GENERATION0.678 uIU/mLNormal0.400-4.200SaSeymour HospitalComment on above:Performed By: #### REINA CORRALES, #### [facility] [address] [place] [address] 09[address]XMIZKQL POCon 00-91-8648Ebhxmes [Mass/Vol]185 mg/yRFwkt38-016Nqu [facility] HospitalComup health system on above:Performed at [facility] [address] [place] [address] 18781Hvxrpicti By: #### REINA CORRALES, JE #### [facility] [address] [place] [address] 35[address]Rvedpyz Auto test strip (Bld) [Mass/Vol]on 02-21-2024 Interpretation and review of laboratory resultsAbnormalMary Washington HospitalHGB,HCTon 99-52-1522Ktvbmudelz (Bld) [Volume fraction] 32.1 %Low42.0-52.0Bon [facility] on above:Performed at [facility] [address] [place] [address] 89344Zjdqehewg By: #### REINA CORRALES, #### [facility] [address] [place] [address]Eeauygtljt (Bld) [Mass/Vol]10.3 g/dLLow14.0-18.0[facility] on above:Performed By: #### REINA CORRALES, #### [facility] [address] [place] [address] 567[address]Ijetfeceyu and Hematocrit panel (Bld)on 39-85-2697Pkqkijbkhrtzpm and review of laboratory resultsAbnormalRiverside Walter Reed Hospital HealthTYPE AND SCREENon 46-88-6727GQOZBxk [facility] HospitalRh Factor PositiveBon [facility] HealthTYPE AND SCREEN CAPTURE on 08-96-0090EAWSHMIY FAZAL CAPTURENegativeNormalSaint Caryn's Medical Center Comment on above:Performed By: #### POCGL #### [facility] [address], [place] [address]TE CAPTURE (2 D CLONES)PositiveTexas Health Harris Methodist Hospital Fort Worth Comment on above:Performed By: #### POCGL #### [facility] [address], [place] [address]LXE CAPTUREONoTexoma Medical CenterComment on above: Performed By: #### POCGL #### [facility] [address] [place] [address]FN LUMBAR SPINE 1 VWon 83-83-4891SU LUMBAR SPINE 1 VWMOBILE LATERAL LUMBAR SPINE: [...] Signed by: Partha Victor MD 02/21/24 Final resultTexas Health Harris Methodist Hospital Fort WorthXR Lumbar spine Single viewon 15-50-9775Rnepcnkgdzbqci appearance of the lumbar spine. This report has been created using voice recognition software. It may contain minor errors which are inherent in voice recognition technology. Electronically signed by Dr. Partha VictorSARAI [facility] CONSOLIDATEDMOBILTosha LATERAL LUMBAR SPINE: CLINICAL INFORMATION: surgery COMPARISON: No prior study. TECHNIQUE: A single lateral mobile view of the lumbar spine was obtained For localization purposes. FINDINGS: 2 spinal needles are present posteriorly, directed at the L1 and L2 levels. [facility] ROBERT VALEPartha ball MD - 02/21/2024 [...] technology. Electronically signed by Dr. Partha Cabrera [facility] HospitalRadiology Study observation (narrative)[facility] MeetCute [facility] HospitalXR Lumbar spine Single viewOrdered By: Partha Victor on 03-82-0241Diy [facility] MeetCute [facility] Work Phone: ecg 12 Leadon 61-44-4521Ewxbsr fibrillation, rightward axis, low voltage, PVCs, nonspecific T wave abnormality, abnormal ECGCPACSFort [facility] Work Phone: activated partial thromboplastin time (aPTT) in platelet poor plasma by coagulation aon 18-50-9614dRPU Coag (PPP) [Time] Activated partial thromboplastin time (aPTT) in platelet poor plasma by coagulation aHigh22.3-36.2FMartin Memorial HospitalBasophils Auto (Bld) [#/Vol]on 80-23-5401Spohcpgfa (Bld) [#/Vol]Automated basophil count0.0-0.1 [facility] HospitalBasophils/100 WBC Auto (Bld)on 02-14-2024 Basophils/100 WBC (Bld)Automated basophil %0.2-2.0[facility] HospitalEosinophils/100 WBC Auto (Bld)on 24-56-2501Mrvpowllkrn/100 WBC (Bld) Automated eosinophil %0.9-7.0[facility]len[facility] HospitalErythrocyte distribution width Auto (RBC) [Ratio]on 38-86-4741Flrcufkervs distribution width (RBC) [Ratio]Erythrocyte distribution width [Ratio] by Automated count11.0-15.0 [facility] HospitalEstimated glomerular filtration rate (GFR) non- Americanon 62-50-4141PHT/1.73 sq M.predicted among non-blacks MDRD (S/P/Bld) [Vol rate/Area]Estimated glomerular filtration rate (GFR) non- AmericanLow>=60 mL/min/1.73m 2FMartin Memorial HospitalHematocrit Auto (Bld) [Volume fraction]on 15-69-6682Kmwnrmldwt (Bld) [Volume fraction]Hematocrit [Volume Fraction] of Blood by Automated lildjYpk29.0-54.0[facility] HospitalHemoglobin [Mass/volume] in Bloodon 57-06-7014Xatekymjzt (Bld) [Mass/Vol]Hemoglobin [Mass/volume] in HsyzrUyz56.0-18.0[facility] HospitalINR in Platelet poor plasma by Coagulation assayon 93-42-9812CDS Coag (PPP) [Relative time]INR in Platelet poor plasma by Coagulation assay [facility] HospitalComment on above:DESIRED INR:2.0-3.0 CONDITIONS NOT LISTED BELOW2.5-3.5 FOR PROSTHETIC HEART VALVE REPLACEMENT2.5-3.5 RECURRENT THROMBOSISLaboratory - Chemistry and Chemistry - challengeon 56-69-2513Ohbygfl [Mass/Vol]9.2 mg/dL8.5-10.1FMartin Memorial HospitalChloride [Moles/Vol] 108 mmol/NVlqk63-438EpzzhpptnOhiohealth O'Bleness HospitalCO2 [Moles/Vol]28.1 mmol/L 21.0-32.0[facility] HospitalCreatinine [Mass/Vol]1.47 mg/dLHigh 0.70-1.30[facility] HospitalGFR/1.73 sq M.predicted MDRD (S/P/Bld) [Vol rate/Area]56 mL/min/{1.73_m2}Low>=60 mL/min/1.73m 2FMartin Memorial HospitalGlucose [Mass/Vol]101 mg/lZ84-873LsmjqikmlOhiohealth O'Bleness Hospital Potassium [Moles/Vol]4.2 mmol/L3.5-5.1FUC [facility] Chester Hospitalodium [Moles/Vol]144 mmol/R524-672IxwdmejcdOhiohealth O'Bleness HospitalUrea nitrogen [Mass/Vol]25.0 mg/dLHigh7.0-18.0[facility] HospitalUrea nitrogen/Creatinine [Mass ratio]17.0 mg/mgOhiohealth O'Bleness Hospital Laboratory - Hematology and Cell countson 10-07-7983Mfxdoqev granulocytes/100 WBC (Bld)0.2 %0.0-0.5FMartin Memorial HospitalLeukocytes [#/volume] corrected for nucleated erythrocytes in Blood by Automated counon 00-19-2884VFD corrected for nucl RBC Auto (Bld) [#/Vol]Leukocytes [#/volume] corrected for nucleated erythrocytes in Blood by Automated coun4.0-11.0[facility] HospitalLymphocytes Auto (Bld) [#/Vol]on 32-04-6844Dpptvbxbwiw (Bld) [#/Vol]Lymphocytes [#/volume] in Blood by Automated countLow1.2-3.8[facility] HospitalLymphocytes/100 WBC Auto (Bld)on 02-14-2024 Lymphocytes/100 WBC (Bld)Lymphocytes/100 leukocytes in Blood by Automated count Low20.5-60.0[facility]H Auto (RBC) [Entitic mass]on 89-24-8286KPF (RBC) [Entitic mass]MCH [Entitic mass] by Automated countHigh 25.9-34.0[facility] MemorialHC Auto (RBC) [Mass/Vol]on 58-64-6551TBOR (RBC) [Mass/Vol]MCHC [Mass/volume] by Automated count29.9-35.2 [facility] HospitalMCV Auto (RBC) [Entitic vol]on 77-13-3527BBB (RBC) [Entitic vol]MCV [Entitic volume] by Automated onsfeHkxa70.0-94.0[facility] HospitalMonocytes Auto (Bld) [#/Vol]on 04-97-1474Kpkxzjsxp (Bld) [#/Vol]Automated blood monocyte count0.3-0.8[facility] Monocytes/100 WBC Auto (Bld)on 91-29-6678Phusfglro/100 WBC (Bld)Automated monocyte %1.7-12.0[facility] HospitalNeutrophils Auto (Bld) [#/Vol]on 94-82-9681Znklrxkoxlp (Bld) [#/Vol]Neutrophils [#/volume] in Blood by Automated count1.4-6.5FMartin Memorial HospitalNeutrophils/100 WBC Auto (Bld)on 40-79-5647Lwapddjpowy/100 WBC (Bld)Automated neutrophil %43.0-75.0 [facility] HospitalNo Panel Informationon 28-37-0843Svhglgdtygx # (Auto)0.2 10 3/uL0.0-0.7FMartin Memorial HospitalImmature Granulocyte # (Auto)0.01 10 3/uL0.00-0.03[facility] HospitalPlatelet mean volume Auto (Bld) [Entitic vol]on 78-52-8620Xhctdjjb mean volume (Bld) [Entitic vol] Platelet mean volume [Entitic volume] in Blood by Automated count9.5-13.5 [facility] HospitalPlatelets Auto (Bld) [#/Vol]on 02-14-2024 Platelets (Bld) [#/Vol]Platelets [#/volume] in Blood by Automated wynxo277-365 [facility] HospitalProthrombin time (PT)on 10-81-6151DN Coag (PPP) [Time]Prothrombin time (PT)High9.0-11.6FMartin Memorial HospitalRBC Auto (Bld) [#/Vol]on 05-36-7093VRA (Bld) [#/Vol]Erythrocytes [#/volume] in Blood by Automated countLow4.70-6.10[facility] Hospitalerum or plasma anion gap determinationon 37-43-1821Ajgdx gap [Moles/Vol]Serum or plasma anion gap determinationOhiohealth O'Bleness HospitalAlanine aminotransferase [Enzymatic activity/volume] in Serum or PlasmaOrdered By: Opal Ga on 66-23-1574AWT [Catalytic activity/Vol]Alanine aminotransferase [Enzymatic activity/volume] in Serum or Plasma7-[facility] HospitalAlbumin [Mass/volume] in Serum or Plasma by Bromocresol green (BCG) dye binding metho Ordered By: Opal Ga on 75-76-8230Letyzbb BCG dye [Mass/Vol]Albumin [Mass/volume] in Serum or Plasma by Bromocresol green (BCG) dye binding metho 3.5-5.7FMartin Memorial HospitalAlkaline phosphatase [Enzymatic activity/volume] in Serum or PlasmaOrdered By: Opal Ga on 05-26-5805DPB [Catalytic activity/Vol]Alkaline phosphatase [Enzymatic activity/volume] in Serum or LqqkkdDsdg54-420UfekgxlebOhiohealth O'Bleness HospitalAspartate aminotransferase [Enzymatic activity/volume] in Serum or PlasmaOrdered By: Opal Ga on 13-31-5111ULF [Catalytic activity/Vol]Aspartate aminotransferase [Enzymatic activity/volume] in Serum or OozprlWrde82-40KmmotcmuwOhiohealth O'Bleness HospitalBasophils Auto (Bld) [#/Vol]Ordered By: Opal Ga on 12-30-2023 Basophils (Bld) [#/Vol]Automated basophil count0.0-0.2FMartin Memorial HospitalBasophils/100 WBC Auto (Bld)Ordered By: Opal Ga on 12-30-2023 Basophils/100 WBC (Bld)Automated basophil %.[facility] Bilirubin.total [Mass/volume] in Serum or PlasmaOrdered By: Opal Ga on 70-93-9136Ttrwbvkag [Mass/Vol]Bilirubin.total [Mass/volume] in Serum or Plasma 0.3-1.0[facility] HospitalCalcium [Mass/volume] in Serum or Plasma Ordered By: Opal Ga on 78-41-9068Ghzsxsk [Mass/Vol]Calcium [Mass/volume] in Serum or Plasma8.6-10.3FMartin Memorial HospitalCarbon dioxide, total [Moles/volume] in Serum or PlasmaOrdered By: Opal Ga on 02-32-7222RB1 [Moles/Vol]Carbon dioxide, total [Moles/volume] in Serum or Otbesb58.0-31.0 [facility] HospitalChloride [Moles/volume] in Serum or Plasma Ordered By: Opal Ga on 30-20-1551Dsvgtqhv [Moles/Vol]Chloride [Moles/volume] in Serum or Pyfwjh66-239ViwrznnsbOhiohealth O'Bleness HospitalCreatinine [Mass/volume] in Serum or PlasmaOrdered By: Opal Ga on 65-18-8990Lyqkghlsrt [Mass/Vol]Creatinine [Mass/volume] in Serum or Plasma0.70-1.30[facility] HospitalEosinophils Auto (Bld) [#/Vol]Ordered By: Opal Ga on 14-52-8720Autujpoyigp (Bld) [#/Vol]Automated eosinophil count0.0-0.45[facility] HospitalEosinophils/100 WBC Auto (Bld)Ordered By: Opal Ga on 34-61-1023Gsdaflznkqt/100 WBC (Bld)Automated eosinophil %.[facility] HospitalErythrocyte distribution width Auto (RBC) [Ratio]Ordered By: Opal Ga on 88-73-7024Fcqylvlsdov distribution width (RBC) [Ratio]Erythrocyte distribution width [Ratio] by Automated count12.0-14.8[facility] HospitalGlobulin Calc (S) [Mass/Vol]Ordered By: Opal Ga on 85-33-8127Ssuqwgad (S) [Mass/Vol]Serum globulin measurement by calculation (mass/volume)[facility] HospitalGlucose [Mass/volume] in Serum or PlasmaOrdered By: Opal Ga on 74-06-6379Qkeuncm [Mass/Vol]Glucose [Mass/volume] in Serum or Plasma 70-100[facility] HospitalComment on above:ADA recommended reference rangeRandom Glucose Reference Range is dependent on time and content of last meal. Glucose of more than 200 mg/dL in a nonstressed, ambulatory subject supports the diagnosisof Diabetes Mellitus.Hematocrit Auto (Bld) [Volume fraction]Ordered By: Opal Ga on 50-57-5980Zppkefrnhj (Bld) [Volume fraction] Hematocrit [Volume Fraction] of Blood by Automated pyevfBut06.8-50.0[facility] HospitalHemoglobin [Mass/volume] in BloodOrdered By: Opal Ga on 77-56-5062Xwhldwuqlw (Bld) [Mass/Vol]Hemoglobin [Mass/volume] in BloodLow 13.0-17.0[facility] HospitalLeukocytes [#/volume] corrected for nucleated erythrocytes in Blood by Automated counOrdered By: Opal Ga on 26-09-7922RRU corrected for nucl RBC Auto (Bld) [#/Vol]Leukocytes [#/volume] corrected for nucleated erythrocytes in Blood by Automated coun4.1-10.5FMartin Memorial HospitalLymphocytes Auto (Bld) [#/Vol]Ordered By: Opal Ga on 47-41-1358Oxgmotjuydl (Bld) [#/Vol]Lymphocytes [#/volume] in Blood by Automated countLow1.00-4.8[facility] HospitalLymphocytes/100 WBC Auto (Bld) Ordered By: Opal Ga on 44-41-3863Yedxesjskbz/100 WBC (Bld)Lymphocytes/100 leukocytes in Blood by Automated count.[facility] HospitalMCH Auto (RBC) [Entitic mass]Ordered By: Opal Ga on 47-10-8558DNA (RBC) [Entitic mass]MCH [Entitic mass] by Automated pkgzfCpsi57.5-35.2FMartin Memorial HospitalMCHC Auto (RBC) [Mass/Vol]Ordered By: Opal Ga on 30-14-1395HOLU (RBC) [Mass/Vol]MCHC [Mass/volume] by Automated count32.5-35.6FMartin Memorial HospitalMCV Auto (RBC) [Entitic vol]Ordered By: Opal Ga on 34-32-4097PNT (RBC) [Entitic vol]MCV [Entitic volume] by Automated countHigh 83.5-101[facility] HospitalMonocytes Auto (Bld) [#/Vol]Ordered By: Opal Ga on 58-50-5813Nnmdbkvct (Bld) [#/Vol]Automated blood monocyte count 0.0-0.8[facility] HospitalMonocytes/100 WBC Auto (Bld)Ordered By: Opal Ga on 24-18-8674Wfwatqzib/100 WBC (Bld)Automated monocyte %.[facility] HospitalNeutrophils Auto (Bld) [#/Vol]Ordered By: Opal Ga on 89-76-3403Ubvytrupmqn (Bld) [#/Vol]Neutrophils [#/volume] in Blood by Automated count1.8-7.7FMartin Memorial HospitalNeutrophils/100 WBC Auto (Bld) Ordered By: Opal Ga on 73-19-4852Fsnqcnmzvma/100 WBC (Bld)Automated neutrophil %.[facility] HospitalNo Panel InformationOrdered By: Opal Ga on 52-61-3924Xbaqrhikq GFR (CKD-EPI)> 60.0 mL/MinOhiohealth O'Bleness HospitalPharmacy Creatinine Clearance (ChemN/[facility] CenterNucleated erythrocytes [Presence] in Blood by Automated countOrdered By: Opal Ga on 10-20-6342Lwtrukfvn RBC Auto Ql (Bld)Nucleated erythrocytes [Presence] in Blood by Automated count0-0.5FMartin Memorial Hospital Platelet mean volume Auto (Bld) [Entitic vol]Ordered By: Opal Ga on 60-00-9801Tjzvixam mean volume (Bld) [Entitic vol]Platelet mean volume [Entitic volume] in Blood by Automated count6.6-10.1FMartin Memorial Hospital Platelets Auto (Bld) [#/Vol]Ordered By: Opal Ga on 55-90-2072Nryrfpaub (Bld) [#/Vol]Platelets [#/volume] in Blood by Automated mjecl459-814RmhogqerfOhiohealth O'Bleness HospitalPotassium [Moles/volume] in Serum or PlasmaOrdered By: Opal Ga on 99-16-1258Qjngycdxr [Moles/Vol]Potassium [Moles/volume] in Serum or Plasma 3.5-5.1FMartin Memorial HospitalProtein [Mass/volume] in Serum or Plasma Ordered By: Opal Ga on 71-82-4415Ttdbdip [Mass/Vol]Protein [Mass/volume] in Serum or PlasmaLow6.4-8.9[facility] HospitalRBC Auto (Bld) [#/Vol] Ordered By: Opal Ga on 09-20-0834BOB (Bld) [#/Vol]Erythrocytes [#/volume] in Blood by Automated countLow3.90-5.60[facility] Hospitalerum or plasma albumin/globulin mass ratioOrdered By: Opal Ga on 12-30-2023 Albumin/Globulin [Mass ratio]Serum or plasma albumin/globulin mass ratio [facility] Hospitalerum or plasma anion gap determinationOrdered By: Opal Ga on 29-95-8500Bqlrb gap [Moles/Vol]Serum or plasma anion gap determination6.0-15.0[facility] Hospitalodium [Moles/volume] in Serum or PlasmaOrdered By: Opal Ga on 74-05-3800Edzeym [Moles/Vol]Sodium [Moles/volume] in Serum or Ulngyt966-812KpkwfguxuOhiohealth O'Bleness Hospital Thyrotropin [Units/volume] in Serum or PlasmaOrdered By: Opal Ga on 74-11-0918MCV QnThyrotropin [Units/volume] in Serum or PlasmaLow0.45-5.33 [facility] HospitalThyroxine (T4) free [Mass/volume] in Serum or PlasmaOrdered By: Opal Ga on 17-94-5060Tbck T4 [Mass/Vol]Thyroxine (T4) free [Mass/volume] in Serum or PlasmaHigh0.61-1.12[facility] Urea nitrogen [Mass/volume] in Serum or PlasmaOrdered By: Opal Ga on 59-55-9128Vvbo nitrogen [Mass/Vol]Urea nitrogen [Mass/volume] in Serum or Plasma 09-28[facility] HospitalWBC Auto (Bld) [#/Vol]Ordered By: Opal Ga on 90-02-5156YCX (Bld) [#/Vol]Leukocytes [#/volume] in Blood by Automated count4.1-10.5FMartin Memorial HospitalAlanine aminotransferase [Enzymatic activity/volume] in Serum or PlasmaOrdered By: Opal Ga on 07-28-5019TRS [Catalytic activity/Vol]18 U/L7-52[facility] HospitalAlbumin [Mass/volume] in Serum or Plasma by Bromocresol green (BCG) dye binding methoOrdered By: Opal Ga on 32-06-8966Ktdtfqx BCG dye [Mass/Vol]4.1 g/dL3.5-5.7FMartin Memorial HospitalAlkaline phosphatase [Enzymatic activity/volume] in Serum or PlasmaOrdered By: Opal Ga on 40-35-0588VEW [Catalytic activity/Vol]117 U/VPmib75-071JnciwgpxsOhiohealth O'Bleness Hospital Aspartate aminotransferase [Enzymatic activity/volume] in Serum or PlasmaOrdered By: Opal Ga on 20-68-9723TJA [Catalytic activity/Vol]29 U/Y66-89XdzwxfdrqOhiohealth O'Bleness HospitalBasophils Auto (Bld) [#/Vol]Ordered By: Opal Ga on 89-85-3987Uusnpwydk (Bld) [#/Vol]0.0 10*3/uL0.0-0.2FMartin Memorial HospitalBasophils/100 WBC Auto (Bld)Ordered By: Opal Ga on 09-12-2023 Basophils/100 WBC (Bld)0.8 %.[facility] HospitalBilirubin.total [Mass/volume] in Serum or PlasmaOrdered By: Opal Ga on 72-35-7527Rgqfbffno [Mass/Vol]0.7 mg/dL0.3-1.0[facility] HospitalCalcium [Mass/volume] in Serum or PlasmaOrdered By: Opal Ga on 73-39-4865Ccnxzkl [Mass/Vol]9.7 mg/dL8.6-10.3FMartin Memorial HospitalCarbon dioxide, total [Moles/volume] in Serum or PlasmaOrdered By: Opal Ga on 59-77-5903PX6 [Moles/Vol]30.3 mmol/L21.0-31.0[facility] HospitalChloride [Moles/volume] in Serum or PlasmaOrdered By: Opal Ga on 82-98-5266Tkxqkhxs [Moles/Vol]105 mmol/K61-686KyykgnbvwOhiohealth O'Bleness HospitalCholesterol [Mass/volume] in Serum or PlasmaOrdered By: Opal Ga on 63-64-5728Vrazuekzjmh [Mass/Vol]135 mg/gLEwq949-268KvsehmuntOhiohealth O'Bleness HospitalComment on above: Chol less than 200 mg/dl low riskChol 201-239 mg/dl borderline riskChol 240 mg/dl and greater high riskCholesterol in LDL Calc [Mass/Vol]Ordered By: Opal Ga on 07-69-9120Pffadnbxrmu in LDL [Mass/Vol]43 mg/dL0-100[facility] HospitalComment on above:LDL ATP III CLASSIFICATIONLDL less than 100 mg/dL OptimalLDL 100-129 mg/dL Near or above pkjpcfdSVT875-710 mg/dL Borderline highLDL 160-189 mg/dL HighLDL greater than 189 mg/dL Very highCholesterol in VLDL Calc [Mass/Vol]Ordered By: Opal Ga on 58-07-3583Yijjccgupzj in VLDL [Mass/Vol]10 mg/dLOhiohealth O'Bleness HospitalCreatinine [Mass/volume] in Serum or PlasmaOrdered By: Opal Ga on 49-44-1709Gkumvqudeu [Mass/Vol]1.19 mg/dL0.70-1.30[facility] HospitalEosinophils Auto (Bld) [#/Vol] Ordered By: Opal Ga on 25-78-0824Ibivunpuhth (Bld) [#/Vol]0.5 10*3/uLHigh 0.0-0.45[facility] HospitalEosinophils/100 WBC Auto (Bld)Ordered By: Opal Ga on 70-17-3647Aidvzxlpaqm/100 WBC (Bld)10.7 %.[facility] HospitalErythrocyte distribution width Auto (RBC) [Ratio]Ordered By: Opal Ga on 01-84-2199Qcokrdnlgst distribution width (RBC) [Ratio]13.9 %12.0-14.8 [facility] HospitalGlobulin Calc (S) [Mass/Vol]Ordered By: Opal Ga on 50-99-7685Tzchhhhw (S) [Mass/Vol]2.3 g/dLOhiohealth O'Bleness HospitalGlucose [Mass/volume] in Serum or PlasmaOrdered By: Opal Ga on 75-38-9819Eefihkf [Mass/Vol]85 mg/wS75-039PevpjnqcrOhiohealth O'Bleness Hospital Comment on above:ADA recommended reference rangeRandom Glucose Reference Range is dependent on time and content of last meal. Glucose of more than 200 mg/dL in a nonstressed, ambulatory subject supports the diagnosisof Diabetes Mellitus. Hematocrit Auto (Bld) [Volume fraction]Ordered By: Opal Ga on 09-12-2023 Hematocrit (Bld) [Volume fraction]39.6 %38.8-50.0[facility] HospitalHemoglobin [Mass/volume] in BloodOrdered By: Opal Ga on 09-12-2023 Hemoglobin (Bld) [Mass/Vol]13.1 g/dL13.0-17.0[facility] Leukocytes [#/volume] corrected for nucleated erythrocytes in Blood by Automated counOrdered By: Opal Ga on 16-50-0131TUI corrected for nucl RBC Auto (Bld) [#/Vol]5.0 10*3/uL4.1-10.5FMartin Memorial HospitalLymphocytes Auto (Bld) [#/Vol]Ordered By: Opal Ga on 77-22-1449Txvqnctjmdg (Bld) [#/Vol]1.4 10*3/uL1.00-4.8[facility] HospitalLymphocytes/100 WBC Auto (Bld) Ordered By: Opal Ga on 99-07-1494Cxwqzmgiguj/100 WBC (Bld)27.8 %.[facility] MemorialH Auto (RBC) [Entitic mass]Ordered By: Opal Ga on 14-89-9047ZHZ (RBC) [Entitic mass]35.2 pg27.5-35.2FMartin Memorial HospitalMCHC Auto (RBC) [Mass/Vol]Ordered By: Opal Ga on 56-39-9594JDCT (RBC) [Mass/Vol]33.1 g/dL32.5-35.6FMartin Memorial HospitalMCV Auto (RBC) [Entitic vol]Ordered By: Opal Ga on 45-87-2997WIU (RBC) [Entitic vol]106.3 fL High83.5-101[facility] HospitalMonocytes Auto (Bld) [#/Vol]Ordered By: Opal Ga on 70-01-1750Owlxozqhp (Bld) [#/Vol]0.5 10*3/uL0.0-0.8[facility] HospitalMonocytes/100 WBC Auto (Bld)Ordered By: Opal Ga on 41-19-4455Kfkfgyopt/100 WBC (Bld)9.7 %.[facility] Neutrophils Auto (Bld) [#/Vol]Ordered By: Opal Ga on 83-51-3294Wlclkdvllae (Bld) [#/Vol]2.6 10*3/uL1.8-7.7FMartin Memorial HospitalNeutrophils/100 WBC Auto (Bld)Ordered By: Opal Ga on 23-09-6333Mfmtetwlafj/100 WBC (Bld)51.0 %.[facility] HospitalNo Panel InformationOrdered By: Opal Ga on 37-64-2700Uadjbqdah GFR (CKD-EPI)> 60.0 mL/MinOhiohealth O'Bleness Hospital Pharmacy Creatinine Clearance (ChemN/AFMartin Memorial HospitalNucleated erythrocytes [Presence] in Blood by Automated countOrdered By: Opal Ga on 42-04-4418Kptibrkax RBC Auto Ql (Bld)0.1 /100{WBC}0-0.5FMartin Memorial HospitalPlatelet mean volume Auto (Bld) [Entitic vol]Ordered By: Opal Ga on 01-68-1554Ytmhqjnm mean volume (Bld) [Entitic vol]8.6 fL6.6-10.1 [facility] HospitalPlatelets Auto (Bld) [#/Vol]Ordered By: Opal Ga on 11-36-3727Iuccmcknk (Bld) [#/Vol]163 10*3/zY013-533GiqgvyeceOhiohealth O'Bleness HospitalPotassium [Moles/volume] in Serum or PlasmaOrdered By: Opal Ga on 18-55-2541Oxagfkxdd [Moles/Vol]4.0 mmol/L3.5-5.1FMartin Memorial HospitalProstate specific Ag [Mass/volume] in Serum or PlasmaOrdered By: Opal Ga on 19-89-4584Tsjxexzu specific Ag [Mass/Vol]2.430 ng/mL0.000-4.000[facility] HospitalComment on above:Serial tumor marker results determined by assays using different manufacturers or methods may not be comparable.[facility]ly [facility] statistical typist and method:Trigence DXI, CHEMILUMINESCENT IMMUNOASSAY.Protein [Mass/volume] in Serum or PlasmaOrdered By: Opal Ga on 10-23-5834Lcunpsw [Mass/Vol]6.4 g/dL6.4-8.9[facility] HospitalRBC Auto (Bld) [#/Vol]Ordered By: Opal Ga on 37-52-7354OCO (Bld) [#/Vol]3.73 10*6/uLLow3.90-5.60[facility] Hospitalerum or plasma albumin/globulin mass ratioOrdered By: Opal Ga on 09-12-2023 Albumin/Globulin [Mass ratio]1.8 {ratio}[facility] Hospitalerum or plasma anion gap determinationOrdered By: Opal Ga on 07-05-8034Oskol gap [Moles/Vol]9.7 mmol/L6.0-15.0[facility] Hospitalerum or plasma high density lipoprotein (HDL) cholesterol measurementOrdered By: Opal Ga on 24-81-5225Uvlzfprfaai in HDL [Mass/Vol]81 mg/wZ59-97TatjzrloeOhiohealth O'Bleness HospitalComment on above:HDL CHOL ATP-III CLASSIFICATION Cardiovascular RiskHDL > or equal to 60 mg/dL LOWHDL < 40 mg/dL HIGHSerum or plasma total cholesterol/high density lipoprotein (HDL) cholesterol mass ratOrdered By: Opal Ga on 41-43-4113Fbcqrqrarxx.total/Cholesterol in HDL [Mass ratio]1.7 {ratio} <5.0[facility] Hospitalodium [Moles/volume] in Serum or Plasma Ordered By: Opal Ga on 41-21-0091Wtvtbp [Moles/Vol]141 mmol/H821-154NzaadsrogOhiohealth O'Bleness HospitalThyrotropin [Units/volume] in Serum or PlasmaOrdered By: Opal Ga on 93-84-8596QEE Qn0.19 m[IU]/LLow0.45-5.33[facility] HospitalThyroxine (T4) free [Mass/volume] in Serum or PlasmaOrdered By: Opal Ga on 31-29-2950Idqn T4 [Mass/Vol]1.24 ng/dLHigh0.61-1.12[facility] HospitalTriglyceride [Mass/volume] in Serum or PlasmaOrdered By: Opal Ga on 71-17-7588Krwodkiozrog [Mass/Vol]53 mg/dL0-149[facility] HospitalComment on above:TRIG ATP III CLASSIFICATIONTRIG less than 150 mg/dL NormalTRIG 150-199 mg/dL Borderline highTRIG 200-500 mg/dL High TRIG greater than 500 mg/dL Very highStandard traceable to the Center for Disease Co nrtrol and Prevention (CDC) test method.Urea nitrogen [Mass/volume] in Serum or PlasmaOrdered By: Opal Ga on 02-07-2553Ozwa nitrogen [Mass/Vol]26 mg/dLHigh 7-25[facility] HospitalWBC Auto (Bld) [#/Vol]Ordered By: Opal Ga on 50-15-4806IGL (Bld) [#/Vol]5.0 10*3/uL4.1-10.5FMartin Memorial HospitalAlanine aminotransferase [Enzymatic activity/volume] in Serum or Plasma Ordered By: Bhupinder Mcintyre on 17-38-2596GQJ [Catalytic activity/Vol]37 U/L7-52 [facility] HospitalAspartate aminotransferase [Enzymatic activity/volume] in Serum or PlasmaOrdered By: Bhupinder Mcintyre on 07-77-2797NSC [Catalytic activity/Vol]66 U/KKklq66-23BfdldszjcOhiohealth O'Bleness HospitalCalcium [Mass/volume] in Serum or PlasmaOrdered By: Bhupinder Mcintyre on 97-28-5589Pwxjgrt [Mass/Vol]9.8 mg/dL8.6-10.3FMartin Memorial HospitalCarbon dioxide, total [Moles/volume] in Serum or PlasmaOrdered By: Bhupinder Mcintyre on 82-93-6098NJ6 [Moles/Vol]27.1 mmol/L21.0-31.0[facility] HospitalChloride [Moles/volume] in Serum or PlasmaOrdered By: Bhupinder Mcintyre on 83-60-9479Ajhkuxbk [Moles/Vol]104 mmol/C76-058LvvhmstqqOhiohealth O'Bleness HospitalCholesterol [Mass/volume] in Serum or PlasmaOrdered By: Bhupinder Mcintyre on 16-55-8869Gjifnpbwvbo [Mass/Vol]152 mg/kH230-538QetepdbvxOhiohealth O'Bleness HospitalComment on above:Chol less than 200 mg/dl low riskChol 201-239 mg/dl borderline riskChol 240 mg/dl and greater high riskCholesterol in LDL Calc [Mass/Vol]Ordered By: Bhupinder Mcintyre on 84-66-5375Jtdbdlptwzo in LDL [Mass/Vol]49 mg/dL0-100[facility] HospitalComment on above:LDL ATP III CLASSIFICATIONLDL less than 100 mg/dL OptimalLDL 100-129 mg/dL Near or above wxwqtxoEXP315-908 mg/dL Borderline highLDL 160-189 mg/dL HighLDL greater than 189 mg/dL Very highCholesterol in VLDL Calc [Mass/Vol]Ordered By: Bhupinder Mcintyre on 69-51-7463Shfmwljwrpo in VLDL [Mass/Vol]17 mg/dLOhiohealth O'Bleness HospitalCreatinine [Mass/volume] in Serum or PlasmaOrdered By: Bhupinder Mcintyre on 73-91-4977Zwzfhbmsma [Mass/Vol]1.14 mg/dL0.70-1.30[facility] HospitalGlucose [Mass/volume] in Serum or PlasmaOrdered By: Bhupinder Mcintyre on 27-77-0733Loalvjh [Mass/Vol]83 mg/eB32-034 [facility] HospitalComment on above:ADA recommended reference rangeRandom Glucose Reference Range is dependent on time and content of last meal. Glucose of more than 200 mg/dL in a nonstressed, ambulatory subject supports the diagnosisof Diabetes Mellitus.Natriuretic peptide B [Mass/Vol] Ordered By: Bhupinder Mcintyre on [id number] peptide B (Bld) [Mass/Vol]347.0 pg/mLHigh5-100[facility] HospitalNo Panel InformationOrdered By: Bhupinder Mcintyre on [id number] GFR (CKD-EPI)> 60.0 mL/MinOhiohealth O'Bleness HospitalPharmacy Creatinine Clearance (ChemN/[facility] CenterPotassium [Moles/volume] in Serum or PlasmaOrdered By: Bhupinder Mcintyre on 14-73-5040Tplvruuqg [Moles/Vol]4.2 mmol/L3.5-5.1FUC West Chester Hospitalerum or plasma anion gap determinationOrdered By: Bhupinder Mcintyre on 07-19-2023 Anion gap [Moles/Vol]14.1 mmol/L6.0-15.0[facility] Hospitalerum or plasma high density lipoprotein (HDL) cholesterol measurementOrdered By: Bhupinder Mcintyre on 13-37-1055Kuumsnntvcw in HDL [Mass/Vol]86 mg/qU58-28XkspjecnoOhiohealth O'Bleness HospitalComment on above:HDL CHOL ATP-III CLASSIFICATION Cardiovascular RiskHDL > or equal to 60 mg/dL LOWHDL < 40 mg/dL HIGHSerum or plasma total cholesterol/high density lipoprotein (HDL) cholesterol mass rat Ordered By: Bhupinder Mcintyre on 97-62-4308Smxlucixidb.total/Cholesterol in HDL [Mass ratio]1.8 {ratio}<5.0[facility] Hospitalodium [Moles/volume] in Serum or PlasmaOrdered By: Bhupinder Mcintyre on 48-27-5397Lwgbqf [Moles/Vol]141 mmol/L 136-145[facility] HospitalTriglyceride [Mass/volume] in Serum or PlasmaOrdered By: Bhupinder Mcintyre on 18-44-5781Czkjhcygvpvy [Mass/Vol]85 mg/dL0-149 [facility] HospitalComment on above:TRIG ATP III CLASSIFICATIONTRIG less than 150 mg/dL NormalTRIG 150-199 mg/dL Borderline highTRIG 200-500 mg/dL High TRIG greater than 500 mg/dL Very highStandard traceable to the Center for Disease Conrtrol and Prevention (CDC) test method. Urea nitrogen [Mass/volume] in Serum or PlasmaOrdered By: Bhupinder Mcintyre on 60-74-4189Bzmh nitrogen [Mass/Vol]22 mg/dL7-25[facility] Alanine aminotransferase [Enzymatic activity/volume] in Serum or PlasmaOrdered By: Opal Ga on 65-52-4701QQT [Catalytic activity/Vol]31 U/L7-52[facility] HospitalAlbumin [Mass/volume] in Serum or Plasma by Bromocresol green (BCG) dye binding methoOrdered By: Opal Ga on 28-46-1417Zcgvajn BCG dye [Mass/Vol]4.1 g/dL3.5-5.7FMartin Memorial HospitalAlkaline phosphatase [Enzymatic activity/volume] in Serum or PlasmaOrdered By: Opal Ga on 64-53-2181BPA [Catalytic activity/Vol]124 U/V89-838NaqburipqOhiohealth O'Bleness HospitalAspartate aminotransferase [Enzymatic activity/volume] in Serum or Plasma Ordered By: Opal Ga on 16-41-8561PHR [Catalytic activity/Vol]47 U/L13-39 [facility] HospitalBasophils Auto (Bld) [#/Vol]Ordered By: Opal Ga on 79-43-2733Xktcsboxl (Bld) [#/Vol]0.0 10*3/uL0.0-0.2FMartin Memorial HospitalBasophils/100 WBC Auto (Bld)Ordered By: Opal Ga on 09-08-2022 Basophils/100 WBC (Bld)1.0 %.[facility] HospitalBilirubin.total [Mass/volume] in Serum or PlasmaOrdered By: Opal Ga on 75-75-1598Medntlobn [Mass/Vol]0.7 mg/dL0.3-1.0[facility] HospitalCalcium [Mass/volume] in Serum or PlasmaOrdered By: Opal Ga on 64-97-6177Caiwjxg [Mass/Vol]9.5 mg/dL8.6-10.3FMartin Memorial HospitalCarbon dioxide, total [Moles/volume] in Serum or PlasmaOrdered By: Opal Ga on 28-36-3219GH8 [Moles/Vol]30.7 mmol/L21.0-31.0[facility] HospitalChloride [Moles/volume] in Serum or PlasmaOrdered By: Opal Ga on 85-28-9606Ipfjjejq [Moles/Vol]107 mmol/K48-194MmexerivbOhiohealth O'Bleness HospitalCholesterol [Mass/volume] in Serum or PlasmaOrdered By: Opal Ga on 52-10-9414Lrvvcztqdov [Mass/Vol]124 mg/zK588-028HuqgewucdOhiohealth O'Bleness HospitalComment on above:Chol less than 200 mg/dl low riskChol 201-239 mg/dl borderline riskChol 240 mg/dl and greater high riskCholesterol in LDL Calc [Mass/Vol]Ordered By: Opal Ga on 39-33-2151Qqtlkwhlbyg in LDL [Mass/Vol]44 mg/dL0-100[facility] HospitalComment on above:LDL ATP III CLASSIFICATIONLDL less than 100 mg/dL OptimalLDL 100-129 mg/dL Near or above qqpdozvBKG131-499 mg/dL Borderline highLDL 160-189 mg/dL HighLDL greater than 189 mg/dL Very highCholesterol in VLDL Calc [Mass/Vol]Ordered By: Opal Ga on 57-01-4470Crecgbugkty in VLDL [Mass/Vol]13 mg/dLOhiohealth O'Bleness HospitalCreatinine [Mass/volume] in Serum or PlasmaOrdered By: Opal Ga on 70-42-3000Jaackeaqzf [Mass/Vol]1.18 mg/dL0.70-1.30[facility] HospitalEosinophils Auto (Bld) [#/Vol] Ordered By: Opal Ga on 43-40-0396Kfiiqvmhzrn (Bld) [#/Vol]0.8 10*3/uL0.0-0.45 [facility] HospitalEosinophils/100 WBC Auto (Bld)Ordered By: Opal Ga on 79-11-6563Qouxreeqjak/100 WBC (Bld)16.6 %.[facility] HospitalErythrocyte distribution width Auto (RBC) [Ratio]Ordered By: Opal Ga on 43-16-7822Tvkrwftbwwa distribution width (RBC) [Ratio]14.9 %12.0-14.8[facility] HospitalGlobulin Calc (S) [Mass/Vol]Ordered By: Opal Ga on 50-86-6378Udlpxisu (S) [Mass/Vol]2.2 g/dLOhiohealth O'Bleness Hospital Glucose [Mass/volume] in Serum or PlasmaOrdered By: Opal Ga on 09-08-2022 Glucose [Mass/Vol]83 mg/fD88-866HbkvkpequOhiohealth O'Bleness HospitalComment on above:ADA recommended reference rangeRandom Glucose Reference Range is dependent on time and content of last meal. Glucose of more than 200 mg/dL in a nonstressed, ambulatory subject supports the diagnosisof Diabetes Mellitus. Hematocrit Auto (Bld) [Volume fraction]Ordered By: Opal Ga on 09-08-2022 Hematocrit (Bld) [Volume fraction]37.1 %38.8-50.0[facility] HospitalHemoglobin [Mass/volume] in BloodOrdered By: Opal Ga on 09-08-2022 Hemoglobin (Bld) [Mass/Vol]12.5 g/dL13.0-17.0[facility] Leukocytes [#/volume] corrected for nucleated erythrocytes in Blood by Automated counOrdered By: Opal Ga on 19-99-6707FHQ corrected for nucl RBC Auto (Bld) [#/Vol]4.7 10*3/uL4.1-10.5FMartin Memorial HospitalLymphocytes Auto (Bld) [#/Vol]Ordered By: Opal Ga on 41-62-8861Mzvrhnyzuhi (Bld) [#/Vol]1.3 10*3/uL1.00-4.8[facility] HospitalLymphocytes/100 WBC Auto (Bld) Ordered By: Opal Ga on 32-20-8296Qazrxxjpwdw/100 WBC (Bld)27.0 %.[facility] HospitalMCH Auto (RBC) [Entitic mass]Ordered By: Opal Ga on 21-07-1828WGQ (RBC) [Entitic mass]33.5 pg27.5-35.2FMartin Memorial HospitalMCHC Auto (RBC) [Mass/Vol]Ordered By: Opal Ga on 82-12-5184XYUA (RBC) [Mass/Vol]33.6 g/dL32.5-35.6FMartin Memorial HospitalMCV Auto (RBC) [Entitic vol]Ordered By: Opal Ga on 92-52-2044SLV (RBC) [Entitic vol]99.7 fL 83.5-101[facility] HospitalMonocytes Auto (Bld) [#/Vol]Ordered By: Opal Ga on 85-86-2093Nktgwrxfh (Bld) [#/Vol]0.3 10*3/uL0.0-0.8[facility] HospitalMonocytes/100 WBC Auto (Bld)Ordered By: Opal Ga on 72-83-5126Mtntjihmd/100 WBC (Bld)7.2 %.[facility] Natriuretic peptide B [Mass/Vol]Ordered By: Bhupinder Mcintyre on 13-20-2973Bfbohudrhvl peptide B (Bld) [Mass/Vol]123.0 pg/mL5-100[facility] Neutrophils Auto (Bld) [#/Vol]Ordered By: Opal Ga on 23-17-0359Mnywhfgxguk (Bld) [#/Vol]2.2 10*3/uL1.8-7.7FMartin Memorial HospitalNeutrophils/100 WBC Auto (Bld)Ordered By: Opal Ga on 25-98-2705Jpkxovtovhb/100 WBC (Bld)48.2 %.[facility] HospitalNo Panel Informationon 09-08-2022 123.0\S\123.0above high ekotgfhfl6-930DL-Oovdx [facility] 250 DO Work Phone: Comment on above:PERFORMED BY:[facility] [place], [place] [phone] MEDICAL DIRECTORJAYY SANTA M.D.No Panel InformationOrdered By: Opal aG on 09-08-2022 Estimated GFR (CKD-EPI)> 60.0 mL/MinOhiohealth O'Bleness HospitalPharmacy Creatinine Clearance (ChemN/AFMartin Memorial HospitalNucleated erythrocytes [Presence] in Blood by Automated countOrdered By: Opal Ga on 25-90-4008Bsadllakn RBC Auto Ql (Bld)0.2 /100{WBC}0-0.5FMartin Memorial HospitalPlatelet mean volume Auto (Bld) [Entitic vol]Ordered By: Opal Ga on 53-42-0046Cemcocqc mean volume (Bld) [Entitic vol]8.8 fL6.6-10.1 [facility] HospitalPlatelets Auto (Bld) [#/Vol]Ordered By: Opal Ga on 49-29-3137Sdgrcapik (Bld) [#/Vol]155 10*3/mY114-182WsmfgatrpOhiohealth O'Bleness HospitalPotassium [Moles/volume] in Serum or PlasmaOrdered By: Opal Ga on 51-81-7505Pquvrpkdp [Moles/Vol]4.0 mmol/L3.5-5.1FMartin Memorial HospitalProstate specific Ag [Mass/volume] in Serum or PlasmaOrdered By: Opal Ga on 45-35-1404Bntqewcl specific Ag [Mass/Vol]2.140 ng/mL0.000-4.000[facility] HospitalProtein [Mass/volume] in Serum or PlasmaOrdered By: Opal Ga on 53-20-7650Khukhct [Mass/Vol]6.3 g/dL6.4-8.9[facility] HospitalRBC Auto (Bld) [#/Vol]Ordered By: Opal Ga on 72-43-5875GHX (Bld) [#/Vol]3.73 10*6/uL3.90-5.60[facility] Hospitalerum or plasma albumin/globulin mass ratioOrdered By: Opal Ga on 09-08-2022 Albumin/Globulin [Mass ratio]1.9 {ratio}[facility] Hospitalerum or plasma anion gap determinationOrdered By: Opal Ga on 82-78-7659Kvewz gap [Moles/Vol]8.3 mmol/L6.0-15.0[facility] Hospitalerum or plasma high density lipoprotein (HDL) cholesterol measurementOrdered By: Opal Ga on 70-91-2328Hrbdhzgbjmz in HDL [Mass/Vol]67 mg/lQ54-26AxdsbiyxjOhiohealth O'Bleness HospitalComment on above:HDL CHOL ATP-III CLASSIFICATION Cardiovascular RiskHDL > or equal to 60 mg/dL LOWHDL < 40 mg/dL HIGHSerum or plasma total cholesterol/high density lipoprotein (HDL) cholesterol mass ratOrdered By: Opal Ga on 40-46-4735Pasbiiegekz.total/Cholesterol in HDL [Mass ratio]1.9 {ratio} <5.0[facility] Hospitalodium [Moles/volume] in Serum or Plasma Ordered By: Opal Ga on 21-89-1998Ldduuv [Moles/Vol]142 mmol/L183-936QnmemxzqwOhiohealth O'Bleness HospitalThyrotropin [Units/volume] in Serum or PlasmaOrdered By: Opal aG on 06-94-1054YVZ Qn0.46 m[IU]/L0.45-5.33[facility] HospitalThyroxine (T4) free [Mass/volume] in Serum or PlasmaOrdered By: Opal Ga on 53-37-4216Cnyy T4 [Mass/Vol]1.28 ng/dL0.61-1.12[facility] HospitalTriglyceride [Mass/volume] in Serum or PlasmaOrdered By: Opal Ga on 79-43-2654Trcxtuwoytpx [Mass/Vol]66 mg/dL0-149[facility] Comment on above:TRIG ATP III CLASSIFICATIONTRIG less than 150 mg/dL NormalTRIG 150-199 mg/dL Borderline highTRIG 200-500 mg/dL High TRIG greater than 500 mg/dL Very highStandard traceable to the Center for Disease Conrtrol and Prevention (CDC) test method.Urea nitrogen [Mass/volume] in Serum or PlasmaOrdered By: Opal Ga on 10-27-6316Oxae nitrogen [Mass/Vol]22 mg/dL7[facility] HospitalWBC Auto (Bld) [#/Vol]Ordered By: Opal Ga on 90-81-6834NOK (Bld) [#/Vol]4.7 10*3/uL4.1-10.5FMartin Memorial HospitalOffice Visit (Cardiology)on 14-45-6805Kvjxpo-up visitDiagnoses/Problems Assessed Heart failure, NYHA class 2 [...] catheterization History of Complete colonoscopy [facility] History of Epidural steroid injection [...] (more content not included)...NormalUH TouchworksTobacco Screening. on 86-99-4912Zmkafwi use status CPHSb) [facility] 250 DO Work Phone: US KIDNEYS BLADDERon 38-25-3395KM KIDNEYS BLADDEREXAM: [employer] KIDNE[employer] BLADDER 05/13/2022 HISTORY: [...] Electronically authenticated by: RONALD ISRAEL Date: 2022-05-13 09:51[facility] HospitalCardiovasc Arrhythmia Resultson 55-10-3754Qlisjfcyvd Arrhythmia ResultsReason For Visit Reason for Visit: Holter Monitor: TAVO is here for the application of a 24 hour Holter monitor. Ordering Physician: Enedelia Aguillon NP Diagnosis: afib NO equipment agreement signed. TAVO understands monitor is to be returned on: 03/16/2022 Monitor number [id number] applied. Holter monitor printed and placed on [...] Future Appointments Date/TimeProviderSpecialtySite 07/07/2022 09:20 Tavo Link, [id number] [facility] [address] 250 DO Signatures Electronically signed by : Marv Urena MD; Mar 19 2022 6:25PM EST (Author) Electronically signed by : Enedelia Gomez APRN-SEED CLEANING MANAGER; Mar 22 2022 9:37AM EST (Author)NormalUH TouchworksCreatinine and Glomerular filtration rate.predicted panel (S/P/Bld)Ordered By: Enedelia Gomez on 53-82-3122Yxatgcarfo [Mass/Vol]1.28 mg/dL0.64-1.27[facility] HospitalEstimated glomerular filtration rate (GFR) non- AmericanOrdered By: Enedelia Gomez on 95-75-8126HFD/1.73 sq M.predicted among non-blacks MDRD (S/P/Bld) [Vol rate/Area]54 mL/MinOhiohealth O'Bleness HospitalNo Panel InformationOrdered By: Enedelia Gomez on 03-11-2022 Estimated GFR ()> 60 mL/MinOhiohealth O'Bleness Hospital Comment on above:GFR estimated reference range: According to KDOQI guidelines, <60 ml/min/1.73m2 is sufficient todiagnose a patient with chronic kidney disease.Pharmacy Creatinine Clearance (ChemN/[facility] No Panel Informationon .1\S\10.8Mtwrye1.0-15.0MP-[facility] [place] 250 DO Work Phone: [phone]\S\9.6Jxkjps3.2-10.2MP-[facility] 250 DO Work Phone: Comment on above:PERFORMED BY:[place] [address] [place], [place] [phone] MEDICAL DIRECTORJAYY SANTA M.D.30.5\S\30.5above high dyqzgzdeh57.0-30.0MP-[facility] 250 DO Work Phone: [phone]\S\549Oqahvr85-080YM-[facility]umb [facility] 250 DO Work Phone: [phone]\S\3.3Vfwrwb9.5-5.1MP-[facility] 250 DO Work Phone: [phone]\S\674Oedscn284-670IL-Thusw [facility] 250 DO Work Phone: > 60NormalMP-[facility] 250 DO Work Phone: Comment on above:GFR estimated reference range: According to KDOQI guidelines, <60 ml/min/1.73m2 is sufficient todiagnose a patient with chronic kidney disease.54\S\54NormalMP-[facility] 250 DO Work Phone: [phone]\S\1.28above high threshold0.64-1.27MP-[facility] 250 DO Work Phone: [phone]\S\35Mkleak7-74XX-Amxjz [facility] 250 DO Work Phone: [phone]\S\80Erurpy82-407ZY-Mubxq [facility] 250 DO Work Phone: Comment on above:Random Glucose Reference Range is dependent on time and content of last meal. Glucose of more than 200 mg/dL in a nonstressed, ambulatory subject supports the diagnosis of Diabetes Mellitus. ADA recommended reference rangeSerum or plasma anion gap determinationOrdered By: Enedelia Gomez on 34-73-6894Umnfw gap [Moles/Vol]10.1 mmol/L6.0-15.0[facility] Hospitalerum or plasma calcium measurement (mass/volume)Ordered By: Enedelia Gomez on 72-07-0714Jlnfunw [Mass/Vol]9.9 mg/dL8.2-10.2FUC [facility] Hospitalerum or plasma chloride measurement (moles/volume) Ordered By: Enedelia Gomez on 42-52-7943Dslqcdtj [Moles/Vol]100 mmol/L95-114 [facility] Hospitalerum or plasma glucose measurement (mass/volume)Ordered By: Enedelia Gomez on 89-21-7547Zomiqjz [Mass/Vol]96 mg/dL 70-100[facility] HospitalComment on above:ADA recommended reference rangeRandom Glucose Reference Range is dependent on time and content of last meal. Glucose of more than 200 mg/dL in a nonstressed, ambulatory subject supports the diagnosisof Diabetes Mellitus.Serum or plasma potassium measurement (moles/volume)Ordered By: Enedelia Gomez on 89-09-5915Agotdddqr [Moles/Vol]3.6 mmol/L3.5-5.1FUC [facility] Hospitalerum or plasma sodium measurement (moles/volume)Ordered By: Enedelia Gomez on 39-12-0497Ehsczw [Moles/Vol]137 mmol/L834-899QamprvrbhHighland District Hospitalerum or plasma total carbon dioxide measurement (moles/volume)Ordered By: Enedelia Gomez on 16-24-6166PE1 [Moles/Vol]30.5 mmol/L22.0-30.0[facility] Serum or plasma urea nitrogen measurement (mass/volume)Ordered By: Enedelia Gomez on 89-63-8001Szgb nitrogen [Mass/Vol]17 mg/dL9-23[facility] HospitalOffice Visit (Cardiology)on 35-87-4302Lomodn-up visitDiagnoses/Problems Assessed Chronic atrial fibrillation (427.31) (I48.20) [...] in adult Healthy Weight Tips; Status:Complete; Done: 40Ros4032 Patient Instructions Please bring all medicines, vitamins, [...] Mcintyre July 2021. 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 He denies any palpitations or [...] catheterization History of Complete colonoscopy [facility] History of Epidural steroid injection [...] (more content not included)... NormalUH TouchworksTobacco Screening.on 18-35-4076Iwaum depression screening assessmentNoKlickitat Valley Health [employer] [employer] 250 DO Work Phone: Fall risk assessmentb) One or more falls in the last yearKlickitat Valley Health [employer] [employer] 250 DO Work Phone: Tobacco use status CPHSb) [facility] [employer] 250 DO Work Phone: Basophils Auto (Bld) [#/Vol]Ordered By: Raji Ennis on 81-73-5707Holhytpqv (Bld) [#/Vol]0.1 10*3/uL0.0-0.2FMartin Memorial HospitalBasophils/100 WBC Auto (Bld)Ordered By: Raji Ennis on 01-16-2022 Basophils/100 WBC (Bld)1.0 %.[facility] HospitalCreatinine and Glomerular filtration rate.predicted panel (S/P/Bld)Ordered By: Raji Ennis on 63-03-2952Ifcqsbjhmu [Mass/Vol]1.56 mg/dL0.64-1.27[facility] HospitalEosinophils Auto (Bld) [#/Vol]Ordered By: Raji Ennis on 01-16-2022 Eosinophils (Bld) [#/Vol]0.4 10*3/uL0.0-0.45[facility] Eosinophils/100 WBC Auto (Bld)Ordered By: Raji Ennis on 01-16-2022 Eosinophils/100 WBC (Bld)5.6 %.[facility] HospitalErythrocyte distribution width Auto (RBC) [Ratio]Ordered By: Raji Ennis on 01-16-2022 Erythrocyte distribution width (RBC) [Ratio]15.3 %12.0-14.8[facility] HospitalEstimated glomerular filtration rate (GFR) non- Ordered By: Raji Ennis on 90-75-7193UXM/1.73 sq M.predicted among non-blacks MDRD (S/P/Bld) [Vol rate/Area]43 mL/MinOhiohealth O'Bleness Hospital Hematocrit Auto (Bld) [Volume fraction]Ordered By: Raji Ennis on 01-16-2022 Hematocrit (Bld) [Volume fraction]35.4 %38.8-50.0[facility] HospitalHemoglobin [Mass/volume] in BloodOrdered By: Raji Ennis on 01-16-2022 Hemoglobin (Bld) [Mass/Vol]11.8 g/dL13.0-17.0[facility] Laboratory - Hematology and Cell countsOrdered By: Raji Ennis on 01-16-2022 Nucleated RBC/100 WBC (Bld) [Ratio]0.0 %0-0.5FMartin Memorial Hospital Leukocytes [#/volume] in Blood by Automated countOrdered By: Raji Ennis on 70-54-0324QSW (Bld) [#/Vol]6.5 10*3/uL4.5-11.0[facility] Lymphocytes Auto (Bld) [#/Vol]Ordered By: Raji Ennis on 90-42-3493Tmhiogjbllm (Bld) [#/Vol]1.1 10*3/uL1.00-4.8[facility] HospitalLymphocytes/100 WBC Auto (Bld)Ordered By: Raji Ennis on 29-91-7248Cjmbyvvtycv/100 WBC (Bld) 17.1 %.[facility] Auto (RBC) [Entitic mass]Ordered By: Raji Ennis on 57-28-6345CQC (RBC) [Entitic mass]33.2 pg27.5-35.2FPike Community Hospital Auto (RBC) [Mass/Vol]Ordered By: Raji Ennis on 93-69-6339PGDN (RBC) [Mass/Vol]33.3 g/dL32.5-35.6FMartin Memorial HospitalMCV Auto (RBC) [Entitic vol]Ordered By: Raji Raymon on 06-80-6460WOV (RBC) [Entitic vol]100.0 fL83.5-101[facility] HospitalMonocytes Auto (Bld) [#/Vol]Ordered By: Raji Raymon on 82-11-2522Jgwdxxjmi (Bld) [#/Vol] 0.8 10*3/uL0.0-0.8[facility] HospitalMonocytes/100 WBC Auto (Bld) Ordered By: Raji Raymon on 27-41-2687Johxoicfe/100 WBC (Bld)11.9 %.[facility] HospitalNeutrophils Auto (Bld) [#/Vol]Ordered By: Raji Raymon on 43-50-2725Atrwlvkorsx (Bld) [#/Vol]4.2 10*3/uL1.8-7.7FMartin Memorial HospitalNeutrophils/100 WBC Auto (Bld)Ordered By: Raji Raymon on 01-16-2022 Neutrophils/100 WBC (Bld)64.4 %.[facility] HospitalNo Panel InformationOrdered By: Raji Raymon on 81-55-1530Dcksptkpi GFR ()52 mL/MinOhiohealth O'Bleness HospitalComment on above:GFR estimated reference range: According to KDOQI guidelines, <60 ml/min/1.73m2 is sufficient todiagnose a patient with chronic kidney disease.Pharmacy Creatinine Clearance (Chem39.79[facility] HospitalPlatelet mean volume Auto (Bld) [Entitic vol]Ordered By: Raji Raymon on 00-07-2742Qyycbtwi mean volume (Bld) [Entitic vol]9.1 fL6.6-10.1FMartin Memorial HospitalPlatelets Auto (Bld) [#/Vol]Ordered By: Raji Raymon on 87-28-6952Itrdksmqy (Bld) [#/Vol]195 10*3/tD974-167YkbmgfyafOhiohealth O'Bleness HospitalRBC Auto (Bld) [#/Vol]Ordered By: Raji Ennis on 22-26-3946YPV (Bld) [#/Vol]3.54 10*6/uL3.90-5.60[facility] Hospitalerum or plasma anion gap determinationOrdered By: Raji Ennis on 63-88-8350Novjj gap [Moles/Vol]11.4 mmol/L6.0-15.0[facility] Hospitalerum or plasma calcium measurement (mass/volume)Ordered By: Raji Raymon on 66-43-2043Swgmkft [Mass/Vol]9.0 mg/dL8.2-10.2FUC [facility] Hospitalerum or plasma chloride measurement (moles/volume)Ordered By: RajiStaufferam 35-94-7696Iqdkuaqk [Moles/Vol]95 mmol/B87-358NagvjhqlpHighland District Hospitalerum or plasma glucose measurement (mass/volume)Ordered By: Raji Raymon 35-89-8985Gmymhyv [Mass/Vol]87 mg/pO65-658RzqwftedaOhiohealth O'Bleness HospitalComment on above:ADA recommended reference rangeRandom Glucose Reference Range is dependent on time and content of last meal. Glucose of more than 200 mg/dL in a nonstressed, ambulatory subject supports the diagnosisof Diabetes Mellitus.Serum or plasma potassium measurement (moles/volume)Ordered By: Raji Ennis 80-96-2836Wzkdsxylb [Moles/Vol]4.0 mmol/L3.5-5.1FUC [facility] Hospitalerum or plasma sodium measurement (moles/volume)Ordered By: Raji Ennis 15-38-8546Yuyrvs [Moles/Vol]132 mmol/R555-633RegxyqoerHighland District Hospitalerum or plasma total carbon dioxide measurement (moles/volume) Ordered By: Raji Arringtonam 34-33-6363SI4 [Moles/Vol]29.6 mmol/L22.0-30.0 [facility] Hospitalerum or plasma urea nitrogen measurement (mass/volume)Ordered By: Raji Ennis 98-93-8891Port nitrogen [Mass/Vol]29 mg/dL9-23[facility] HospitalUrine culture routineOrdered By: Frankie Reynolds on 16-62-2724Cbknzsnu identified Cx Nom (U)No Growth 2 Days [facility] HospitalAutomated erythrocytes count in urine sediment (number/area)Ordered By: Frankie Reynolds on 56-75-2387WBS Auto (Urine sed) [#/Area]50-100 [HPF]0-4FMartin Memorial HospitalAutomated leukocytes count in urine sediment (number/area)Ordered By: Frankie Reynolds on 22-56-6554ZKJ Auto (Urine sed) [#/Area]5-9 [HPF]0-4FMartin Memorial HospitalBilirubin Test strip Ql (U)Ordered By: Frankie Reynolds on 17-21-7788Bkwovyxgh Ql (U)Negative NegativeOhiohealth O'Bleness HospitalColor Auto (U)Ordered By: Frankie Reynolds on 54-19-1024Fdapm (U)YellowYellowOhiohealth O'Bleness HospitalKetones Auto test strip (U) [Mass/Vol]Ordered By: Frankie Reynolds on 82-50-0771Fdiroyd (U) [Mass/Vol]NegativeNegativeOhiohealth O'Bleness HospitalLaboratory - UrinalysisOrdered By: Frankie Reynolds on 12-63-0549Zkysitk casts LM Ql (Urine sed) 0-8 [LPF]0-8[facility] HospitalNitrite Test strip Ql (U)Ordered By: Frankie Reynolds on 89-95-5404Cfuuuwp Ql (U)NegativeNegMcCullough-Hyde Memorial HospitalProtein Auto test strip (U) [Mass/Vol]Ordered By: Frankie Reynolds on 33-62-6037Swujiov (U) [Mass/Vol]30 mg/dLNegativeHighland District Hospitalerum or plasma uric acid measurement (mass/volume)Ordered By: Frankie Reynolds on 43-46-7519Ykute [Mass/Vol]4.7 mg/dL2.6-7.2FUC West Chester Hospitalerum or plasma vancomycin measurement (mass/volume)Ordered By: Raji Ennis on 36-43-8848Qbbbjojjcs [Mass/Vol]9.7 ug/mL5.0-20.0[facility] HospitalComment on above:Last dose: -Specific gravity Auto test strip (U) [Rel density]Ordered By: Frankie Reynolds on 15-67-5606Dldpehfu gravity (U) [Rel density]1.0121.001-1.030[facility] District Hospitalquamous epithelial cells detection in urine sediment by light microscopyOrdered By: Frankie Reynolds on 82-12-5353Vgdlznbujc cells.squamous LM Ql (Urine sed)0-1 [HPF]0-2FMartin Memorial HospitalUrine bacteria detection by automated methodOrdered By: Frankie Reynolds on 77-93-5547Kgxceybq Auto Ql (U)None seenNone SeenOhiohealth O'Bleness HospitalUrine clarity by refractometry automatedOrdered By: Frankie Reynolds on 81-28-6121Gevuyyj Refractometry automated (U)ClearClear [facility] HospitalUrine culture routineOrdered By: Frankie Reynolds on 06-94-0261Dbbuhoje identified Cx Nom (U)No Growth 2 DaysOhiohealth O'Bleness HospitalUrine glucose measurement by automated test strip (mass/volume) Ordered By: Frankie Reynolds on 92-91-7821Pseigwm Auto test strip (U) [Mass/Vol] Normal mg/dLNoSt. John of God HospitalUrine hemoglobin detection by automated test stripOrdered By: Frankie Reynolds on 37-27-2978Zsaxeududu Auto test strip Ql (U)3+NegativeOhiohealth O'Bleness HospitalUrine leukocyte esterase detection by automated test stripOrdered By: Frankie Reynolds on 01-13-2022 Leukocyte esterase Auto test strip Ql (U)2+NegativeOhiohealth O'Bleness HospitalUrobilinogen Auto test strip (U) [Mass/Vol]Ordered By: Frankie Reynolds on 66-96-5864Isygwqfolvzc (U) [Mass/Vol]Normal mg/dLNoSt. John of God HospitalpH Auto test strip (U)Ordered By: Frankie Reynolds on 90-21-5345tS (U)5.5 [pH]5.0-9.0[facility]len[facility] HospitalBacterial blood culture Ordered By: Raji Ennis on 85-39-2580Dgfarobg identified Cx Nom (Bld)NO GROWTH 5 DAYSOhiohealth O'Bleness HospitalC reactive protein [Mass/volume] in Serum or PlasmaOrdered By: Raji Ennis on 38-13-6672CYE [Mass/Vol]8.4 mg/dL0.0-1.0 [facility] HospitalAlbumin [Mass/volume] in Serum or PlasmaOrdered By: Vikas Mane on 87-86-4736Lynxzcy [Mass/Vol]2.9 g/dL2.9-4.4FMartin Memorial HospitalIgA [Mass/volume] in Serum or PlasmaOrdered By: Vikas Mane on 99-83-8460NbN [Mass/Vol]171 mg/hC23-587QmshqpjjeOhiohealth O'Bleness HospitalIgG [Mass/volume] in Serum or PlasmaOrdered By: Vikas Mane on 01-11-2022 IgG [Mass/Vol]816 mg/wB080-9120JmmjqncviOhiohealth O'Bleness HospitalIgM [Mass/volume] in Serum or PlasmaOrdered By: Vikas Mane on 78-06-1630OuX [Mass/Vol]105 mg/bZ95-885TgpusbsxhOhiohealth O'Bleness HospitalComment on above: Performed at: [facility] [id number] Director: Patrick Ortiz PhD, Phone: [phone] Panel InformationOrdered By: Vikas Mane on 22-14-4639Snshimc Electrophoresis M-SpikeNot observed g/dLNot ObservedOhiohealth O'Bleness HospitalProtein Electrophoresis NoteSee comment.[facility]len[facility] HospitalComment on above:Protein electrophoresis scan will follow via computer,mail, or teacher of the deaf delivery.Performed at: [facility] [id number] Director: Patrick Ortiz PhD, Phone: [phone] ImmunofixationSee comment.[facility]leness HospitalComment on above:No monoclonality detected.Protein [Mass/volume] in Serum or PlasmaOrdered By: Vikas Mane on 05-07-5469Acapklw [Mass/Vol]5.3 g/dL6.0-8.5FUC [facility] Hospitalerum globulin measurement (mass/volume)Ordered By: Vikas Mane on 70-54-4733Fqzzmiij (S) [Mass/Vol]2.4 g/dL2.2-3.9[facility] Hospitalerum or plasma albumin/globulin mass ratioOrdered By: Vikas Mane on 39-67-3325Snmzdty/Globulin [Mass ratio]1.2 {ratio}0.7-1.7F[facility] Hospitalerum or plasma alpha 1 globulin measurement by electrophoresis (mass/volume)Ordered By: Vikas Mane on 52-83-0326Qyukg 1 globulin Elph [Mass/Vol]0.4 g/dL0.0-0.4F[facility] Hospitalerum or plasma alpha 2 globulin measurement by electrophoresis (mass/volume)Ordered By: Vikas Mane on 41-82-7087Wkhjt 2 globulin Elph [Mass/Vol]0.7 g/dL0.4-1.0[facility] Hospitalerum or plasma beta globulin measurement by electrophoresis (mass/volume)Ordered By: Vikas Mane on 50-80-2954Txyc globulin Elph [Mass/Vol] 0.6 g/dL0.7-1.3F[facility] Hospitalerum or plasma gamma globulin measurement by electrophoresis (mass/volume)Ordered By: Vikas Mane on 30-52-8994Ekxcm globulin Elph [Mass/Vol]0.8 g/dL0.4-1.8[facility]leness HospitalFolate [Mass/volume] in Serum or PlasmaOrdered By: Dharmesh Zavala on 54-22-8444Mawwis [Mass/Vol]8.8 ng/mL>5.9[facility]len[facility] HospitalComment on above:Folate reference range: >5.9 ng/mlThe WHO technical consultation on folate and vitamin f36yaionrsogprt has determined that folate concentrations lessthan 4 ng/ml are considered deficient.Glucose mean value [Mass/volume] in Blood Estimated from glycated hemoglobinOrdered By: Dharmesh Zavala on 97-48-1121Lzxowvx glucose Estimated from glycated hemoglobin (Bld) [Mass/Vol]114 mg/dLOhiohealth O'Bleness HospitalHemoglobin A1c percentage Ordered By: Dharmesh Zavala on 34-30-9791NvU6g (Bld) [Mass fraction]5.6 % 4.3-5.6FMartin Memorial HospitalComment on above:Increased risk for diabetes: 5.7 - 6.4diabetes: >6.4glycemic control for adults with diabetes: &l t;7.0Iron [Mass/volume] in Serum or PlasmaOrdered By: Dharmesh Zavala on 98-28-2896Hwhc [Mass/Vol]13 ug/jZ36-001MkpvohljfOhiohealth O'Bleness Hospital Laboratory - Chemistry and Chemistry - challengeOrdered By: Dharmesh Zavala on 34-84-6540Hpsmanyzy (Vitamin B12) [Mass/Vol]458 pg/tF845-720XciaznvlfOhiohealth O'Bleness HospitalMagnesium [Mass/Vol]1.9 mg/dL1.6-2.6FMartin Memorial HospitalNatriuretic peptide B (Bld) [Mass/Vol]679.0 pg/mL5-100[facility] HospitalTS DL <= 0.005 mIU/L QnOrdered By: Dharmesh Zavala on 93-22-1705OPA Qn3.99 m[IU]/L0.45-5.33[facility] Troponin I.cardiac [Mass/volume] in Serum or Plasma by High sensitivity method Ordered By: Dharmesh Zavala on 95-15-6756Awkkxwea I.cardiac High sensitivity method [Mass/Vol]110 pg/mL0-20[facility] Comment on above:Results calledat 0808 on 01/10/22Activated partial thromboplastin time (aPTT) in platelet poor plasma by coagulation aOrdered By: Frankie Paiz on 79-71-5631kNGH Coag (PPP) [Time]39.1 s25.1-36.5FMartin Memorial HospitalAutomated erythrocytes count in urine sediment (number/area)Ordered By: Frankie Paiz on 36-49-2639REE Auto (Urine sed) [#/Area]0-1 [HPF]0-4FMartin Memorial HospitalAutomated leukocytes count in urine sediment (number/area)Ordered By: Frankie Paiz on 87-39-1450RLK Auto (Urine sed) [#/Area]5-9 [HPF]0-4FMartin Memorial HospitalBasophils Auto (Bld) [#/Vol]Ordered By: Frankie Paiz on 85-13-5433Ftwlbhbde (Bld) [#/Vol]0.1 10*3/uL0.0-0.2FMartin Memorial HospitalBasophils/100 WBC Auto (Bld) Ordered By: Frankie Paiz on 70-62-6412Vkdmlhnnb/100 WBC (Bld)1.0 %.[facility]len[facility] HospitalBilirubin Test strip Ql (U)Ordered By: Frankie Paiz on 04-16-7486Yefwuwjxe Ql (U)NegativeNegMcCullough-Hyde Memorial Hospital COVID-19 Positive/NegativeOrdered By: Frankie Paiz on 16-65-6952QRZD-CoV-2 (COVID-19) N gene SMITHA+probe Ql (Resp)NegativeNegMcCullough-Hyde Memorial HospitalComment on above:Testing for SARS-CoV-2 by RT-PCRThis test was developed and its performance characteristics determined by [employer] and validated at the [facility]. This test has not been FDA [...] sooner. COVID-19 SOFIAOrdered By: Frankie Paiz on 10-46-4327ZRMP-CoV+SARS-CoV-2 (COVID-19) Ag IA.rapid Ql (Resp)NegativeNegMcCullough-Hyde Memorial HospitalComment on above:This is a duplicate Veronica SARS Antigen (MADHAVI) result to be used for statistical tracking purpose only.Color Auto (U)Ordered By: Frankie Paiz on 67-65-4973Cnzst (U)YellowYellowOhiohealth O'Bleness Hospital Creatine kinase [Enzymatic activity/volume] in Serum or PlasmaOrdered By: Frankie Paiz on 53-37-3292BS [Catalytic activity/Vol]231 U/E64-235JccupwlkgOhiohealth O'Bleness HospitalCreatinine and Glomerular filtration rate.predicted panel (S/P/Bld)Ordered By: Frankie Paiz on 58-44-8127Daihipxwmv [Mass/Vol]1.62 mg/dL 0.64-1.27[facility]len[facility] HospitalEosinophils Auto (Bld) [#/Vol]Ordered By: Frankie Paiz on 41-46-1471Lzvhfkzbnuu (Bld) [#/Vol]0.0 10*3/uL0.0-0.45 [facility] HospitalEosinophils/100 WBC Auto (Bld)Ordered By: Frankie Paiz on 40-84-3335Tjdbvkkxdvm/100 WBC (Bld)0.1 %.[facility]len[facility] HospitalErythrocyte distribution width Auto (RBC) [Ratio]Ordered By: Frankie Paiz on 38-03-2132Yzguwajnykr distribution width (RBC) [Ratio]15.9 % 12.0-14.8[facility] HospitalEstimated glomerular filtration rate (GFR) non- AmericanOrdered By: Frankie Paiz on 96-11-2670NCM/1.73 sq M.predicted among non-blacks MDRD (S/P/Bld) [Vol rate/Area]41 mL/MinOhiohealth O'Bleness HospitalHematocrit Auto (Bld) [Volume fraction]Ordered By: Frankie Paiz on 10-40-3625Bkcmmsmbyo (Bld) [Volume fraction]36.5 %38.8-50.0 [facility]len[facility] HospitalHemoglobin [Mass/volume] in BloodOrdered By: Frankie Paiz on 43-71-3008Kbruoqywpa (Bld) [Mass/Vol]12.1 g/dL13.0-17.0 [facility] HospitalKetones Auto test strip (U) [Mass/Vol]Ordered By: Frankie Paiz on 74-24-8975Zgoorhn (U) [Mass/Vol]TraceNegativeOhiohealth O'Bleness HospitalLaboratory - Chemistry and Chemistry - challengeOrdered By: Frankie Paiz on 72-47-9610Dkeyftisgnx peptide B (Bld) [Mass/Vol]1810.0 pg/mL5-100[facility] HospitalLaboratory - CoagulationOrdered By: Frankie Paiz on 57-34-0060YH Coag (PPP) [Time]28.4 s9.0-12.9[facility] HospitalLaboratory - Hematology and Cell countsOrdered By: Frankie Paiz on 75-61-4673Rvccucyxz RBC/100 WBC (Bld) [Ratio]0.1 %0-0.5FMartin Memorial HospitalLaboratory - UrinalysisOrdered By: Frankie Paiz on 01-09-2022 Hyaline casts LM Ql (Urine sed)0-8 [LPF]0-8[facility] Leukocytes [#/volume] in Blood by Automated countOrdered By: Frankie Paiz on 43-43-5062MAA (Bld) [#/Vol]6.0 10*3/uL4.5-11.0[facility] Lymphocytes Auto (Bld) [#/Vol]Ordered By: Frankie Paiz on 01-09-2022 Lymphocytes (Bld) [#/Vol]0.8 10*3/uL1.00-4.8[facility] Lymphocytes/100 WBC Auto (Bld)Ordered By: Frankie Paiz on 01-09-2022 Lymphocytes/100 WBC (Bld)13.5 %.[facility] Auto (RBC) [Entitic mass]Ordered By: Frankie Paiz on 75-52-6572TYV (RBC) [Entitic mass] 33.7 pg27.5-35.2FMartin Memorial HospitalMCHC Auto (RBC) [Mass/Vol] Ordered By: Frankie Paiz on 98-55-6734KWCV (RBC) [Mass/Vol]33.2 g/dL32.5-35.6 [facility] HospitalMCV Auto (RBC) [Entitic vol]Ordered By: Frankie Paiz on 58-06-9312LTJ (RBC) [Entitic vol]101.5 fL83.5-101[facility] HospitalMonocytes Auto (Bld) [#/Vol]Ordered By: Frankie Paiz on 20-36-0022Yemyczcbb (Bld) [#/Vol]0.9 10*3/uL0.0-0.8[facility] HospitalMonocytes/100 WBC Auto (Bld)Ordered By: Frankie Paiz on 01-09-2022 Monocytes/100 WBC (Bld)14.2 %.[facility] HospitalNeutrophils Auto (Bld) [#/Vol]Ordered By: Frankie Paiz on 41-34-6541Udgpgkwemje (Bld) [#/Vol] 4.3 10*3/uL1.8-7.7FMartin Memorial HospitalNeutrophils/100 WBC Auto (Bld)Ordered By: Frankie Paiz on 60-57-9942Tabavlrhndk/100 WBC (Bld)71.2 %. [facility] HospitalNitrite Test strip Ql (U)Ordered By: Frankie Paiz on 64-02-8318Mtjjqsq Ql (U)NegativeNegativeOhiohealth O'Bleness HospitalNo Panel InformationOrdered By: Frankie Paiz on 39-28-6018NWSB Antigen (LFIA)[facility] HospitalEstimated GFR ()50 mL/Min [facility] HospitalComment on above:GFR estimated reference range: According to KDOQI guidelines, <60 ml/min/1.73m2 is sufficient todiagnose a patient with chronic kidney disease.Pharmacy Creatinine Clearance (Chem39.44 [facility] HospitalARS Antigen (LFIA)[facility] HospitalPlatelet mean volume Auto (Bld) [Entitic vol]Ordered By: Frankie Paiz on 22-86-8133Tpqqqegs mean volume (Bld) [Entitic vol]8.3 fL6.6-10.1FMartin Memorial HospitalPlatelet poor plasma international normalized ratio (INR) by coagulation assay (relatOrdered By: Frankie Paiz on 06-18-5549MXV Coag (PPP) [Relative time]2.5 {INR}[facility] HospitalComment on above: INR Therapeutic Range A) [...] Auto (Bld) [#/Vol]Ordered By: Frankie Paiz on 38-19-0052Lhxcfktpg (Bld) [#/Vol]162 10*3/wM706-099RxtadeadpOhiohealth O'Bleness HospitalProtein Auto test strip (U) [Mass/Vol]Ordered By: Frankie Paiz on 04-32-2090Wzwsacf (U) [Mass/Vol]Trace mg/dLNegativeOhiohealth O'Bleness HospitalRBC Auto (Bld) [#/Vol]Ordered By: Frankie Paiz on 33-55-7116MCK (Bld) [#/Vol]3.59 10*6/uL 3.90-5.60[facility] Hospitalerum or plasma anion gap determinationOrdered By: Frankie Paiz on 07-08-1382Qjrqg gap [Moles/Vol]14.9 mmol/L6.0-15.0[facility] Hospitalerum or plasma calcium measurement (mass/volume)Ordered By: Frankie Paiz on 41-95-9077Epwiiot [Mass/Vol]9.2 mg/dL8.2-10.2F[facility] Hospitalerum or plasma chloride measurement (moles/volume)Ordered By: Frankie Paiz on 01-09-2022 Chloride [Moles/Vol]100 mmol/B00-654GuckiudfeHighland District Hospitalerum or plasma creatine kinase MB (CKMB)/total creatine kinase (CK) ratio by calcula Ordered By: Frankie Paiz on 29-87-3825KV.MB Calc [Catalytic fraction]2.3 % 0.00-2.50[facility] Hospitalerum or plasma creatine kinase MB measurement (mass/volume)Ordered By: Frankie Paiz on 27-86-4028IP.MB [Mass/Vol]5.4 ng/mL0.6-6.3FUC [facility] Hospitalerum or plasma glucose measurement (mass/volume)Ordered By: Frankie Paiz on 21-43-9048Jydmemf [Mass/Vol]99 mg/xH76-657YydkcxyirOhiohealth O'Bleness HospitalComment on above:ADA recommended reference rangeRandom Glucose Reference Range is dependent on time and content of last meal. Glucose of more than 200 mg/dL in a nonstressed, ambulatory subject supports the diagnosisof Diabetes Mellitus.Serum or plasma potassium measurement (moles/volume)Ordered By: Frankie Paiz on 01-09-2022 Potassium [Moles/Vol]4.1 mmol/L3.5-5.1F[facility] Hospitalerum or plasma sodium measurement (moles/volume)Ordered By: Frankie Paiz on 01-09-2022 Sodium [Moles/Vol]136 mmol/R707-116DkwjqzfdmHighland District Hospitalerum or plasma total carbon dioxide measurement (moles/volume)Ordered By: Frankie Paiz on 16-12-6796KG5 [Moles/Vol]25.2 mmol/L22.0-30.0[facility] Hospitalerum or plasma urea nitrogen measurement (mass/volume)Ordered By: Frankie Paiz on 53-51-1021Lint nitrogen [Mass/Vol]21 mg/dL9-23[facility] Hospitalpecific gravity Auto test strip (U) [Rel density]Ordered By: Frankie Paiz on 90-23-6290Dqvgaqyt gravity (U) [Rel density]1.0181.001-1.030 [facility] Hospitalquamous epithelial cells detection in urine sediment by light microscopyOrdered By: Frankie Paiz on 98-50-4460Mfmkoabefx cells.squamous LM Ql (Urine sed)0-1 [HPF]0-2FMartin Memorial Hospital Troponin I.cardiac [Mass/volume] in Serum or Plasma by High sensitivity method Ordered By: Frankie Paiz on 14-81-6538Nouldlzo I.cardiac High sensitivity method [Mass/Vol]101 pg/mL0-20[facility] HospitalComment on above: Results calledat 1208 on 01/09/22Urine bacteria detection by automated method Ordered By: Frankie Paiz on 06-40-1576Zbzsebnp Auto Ql (U)None seenNone Seen [facility]len[facility] HospitalUrine clarity by refractometry automatedOrdered By: Frankie Paiz on 73-76-9873Ccdinwd Refractometry automated (U)CloudyClear [facility]len[facility] HospitalUrine glucose measurement by automated test strip (mass/volume)Ordered By: Frankie Paiz on 38-78-4751Ubipyvn Auto test strip (U) [Mass/Vol]Normal mg/dLNoSt. John of God HospitalUrine hemoglobin detection by automated test stripOrdered By: Frankie Paiz on 71-93-9717Jugptyanjl Auto test strip Ql (U)NegativeNegativeOhiohealth O'Bleness HospitalUrine leukocyte esterase detection by automated test stripOrdered By: Frankie Paiz on 94-20-2777Omkpxxvld esterase Auto test strip Ql (U)2+ NegativeOhiohealth O'Bleness HospitalUrobilinogen Auto test strip (U) [Mass/Vol]Ordered By: Frankie Paiz on 20-66-2725Ouyazggyvqpb (U) [Mass/Vol] Normal mg/dLNormalOhiohealth O'Bleness HospitalYeast detection in urine sediment by light microscopyOrdered By: Frankie Paiz on 06-88-3377Pyykh LM Ql (Urine sed)None seen [HPF]None SeenOhiohealth O'Bleness HospitalpH Auto test strip (U)Ordered By: Frankie Paiz on 77-12-0088tM (U)5.5 [pH]5.0-9.0[facility] HospitalBody fluid albumin measurement (mass/volume)Ordered By: Opal Ga on 12-32-4743Pvcyjyi (Body fld) [Mass/Vol]3.5 g/dL3.2-5.5FMartin Memorial HospitalCreatinine and Glomerular filtration rate.predicted panel (S/P/Bld)Ordered By: Opal Ga on 96-26-7214Zvipzaqnmi [Mass/Vol]1.29 mg/dL 0.64-1.27[facility] HospitalEstimated glomerular filtration rate (GFR) non- AmericanOrdered By: Opal Ga on 58-36-3707JUI/1.73 sq M.predicted among non-blacks MDRD (S/P/Bld) [Vol rate/Area]54 mL/MinOhiohealth O'Bleness HospitalGlobulin Calc (S) [Mass/Vol]Ordered By: Opal Ga on 89-60-0543Cxyhajmt (S) [Mass/Vol]2.2 g/dLOhiohealth O'Bleness HospitalNo Panel InformationOrdered By: Opal Ga on 28-59-3914Oxgrtezws GFR ()> 60 mL/MinOhiohealth O'Bleness HospitalComment on above:GFR estimated reference range: According to KDOQI guidelines, <60 ml/min/1.73m2 is sufficient todiagnose a patient with chronic kidney disease.Pharmacy Creatinine Clearance (ChemN/[facility] CenterProtein [Mass/volume] in Serum or PlasmaOrdered By: Opal Ga on 30-36-4258Szjcttv [Mass/Vol]5.7 g/dL 6.1-7.9[facility] Hospitalerum or plasma alanine aminotransferase measurement without P-5'-P (enzymatic activiOrdered By: Opal Ga on 18-14-4277OYQ No additional P-5'-P [Catalytic activity/Vol]19 U/R37-80VglxnauxkHighland District Hospitalerum or plasma albumin/globulin mass ratioOrdered By: Opal Ga on 77-18-8954Zlodatn/Globulin [Mass ratio]1.6 {ratio}[facility] Hospitalerum or plasma alkaline phosphatase measurement (enzymatic activity/volume)Ordered By: Opal aG on 95-87-5766MJH [Catalytic activity/Vol]92 U/A14-04KmohfcsycHighland District Hospitalerum or plasma anion gap determinationOrdered By: Opal Ga on 21-95-3241Mxatv gap [Moles/Vol]15.3 mmol/L6.0-15.0[facility] Hospitalerum or plasma aspartate aminotransferase measurement (enzymatic activity/volume)Ordered By: Opal Ga on 47-78-8317IHX [Catalytic activity/Vol]27 U/S27-11HnnsxfyycHighland District Hospitalerum or plasma calcium measurement (mass/volume)Ordered By: Opal Ga on 80-03-0443Ssujcpb [Mass/Vol]9.6 mg/dL8.2-10.2FMartin Memorial Hospital Serum or plasma chloride measurement (moles/volume)Ordered By: Opal Ga on 44-32-4635Fvqvrpcy [Moles/Vol]103 mmol/O95-042XrtmpqagjOhiohealth O'Bleness Hospital Serum or plasma glucose measurement (mass/volume)Ordered By: Opal Ga on 23-76-6496Jwzcnhy [Mass/Vol]84 mg/zG83-459LfdpesjivOhiohealth O'Bleness Hospital Comment on above:ADA recommended reference rangeRandom Glucose Reference Range is dependent on time and content of last meal. Glucose of more than 200 mg/dL in a nonstressed, ambulatory subject supports the diagnosisof Diabetes Mellitus. Serum or plasma potassium measurement (moles/volume)Ordered By: Opal Ga on 80-82-9582Rvqmhlrid [Moles/Vol]4.5 mmol/L3.5-5.1F[facility] Hospitalerum or plasma sodium measurement (moles/volume)Ordered By: Opal Ga on 94-08-6120Fkpccy [Moles/Vol]139 mmol/Z098-134IbwkokwxfOhiohealth O'Bleness Hospital Serum or plasma total bilirubin measurement (mass/volume)Ordered By: Opal Ga on 31-25-7689Wnuslqzbd [Mass/Vol]1.2 mg/dL0.3-1.2F[facility] Hospitalerum or plasma total carbon dioxide measurement (moles/volume)Ordered By: Opal Ga on 04-12-1110FN6 [Moles/Vol]25.2 mmol/L22.0-30.0[facility] Hospitalerum or plasma urea nitrogen measurement (mass/volume)Ordered By: Opal Ga on 37-08-4657Xwgn nitrogen [Mass/Vol]16 mg/dL9-[facility] HospitalTS DL <= 0.005 mIU/L QnOrdered By: Opal Ga on 27-25-8337EVT Qn 1.83 m[IU]/L0.45-5.33[facility] HospitalThyroxine (T4) free [Mass/volume] in Serum or PlasmaOrdered By: Opal Ga on 43-03-3532Yinv T4 [Mass/Vol]1.09 ng/dL0.61-1.12[facility] HospitalOffice Visit (Cardiology)on 38-27-3369Aeovnt-up visitDiagnoses/Problems Assessed Non-ischemic cardiomyopathy (425.4) (I42.8) Chronic [...] Former smoker Tobacco Use Screening; Status:Complete; Done: [id number] Patient Instructions By signing my name below, [...] catheterization History of Complete colonoscopy [facility] History of Hip replacement History [...] com (more content not included)...NormalUH TouchworksTobacco Screening.on 42-80-2166Kawat depression screening assessmentNoKlickitat Valley Health BuildCircle DO Work Phone: Fall risk assessmentb) One or more falls in the last yearKlickitat Valley Health BuildCircle DO Work Phone: Tobacco use status CPHSb) NoMPeacehealth St. [facility] [address] DO Work Phone: Tobacco Screening.on 16-95-9463Ndau risk assessmentb) One or more falls in the last yearKlickitat Valley Health [facility]-[address] 250 DO Work Phone: Tobacco use status CPHSb) NoMPeacehealth St. [facility] [address] DO Work Phone: Vital Signs Date TimeVital SignValuePerforming ZjahqhhygHrhctpql63-49-8161 14:46-0400Heart rate95 /minOpal Ga DO Work Phone: [facility]10-14-2025 14:46-0400 Respiratory rate20 /minOpal Ga DO Work Phone: [phone]10-14-2025 12:00-0400 Body gyxkqzacswt29.8 [degF]Opal Ga DO Work Phone: [phone]10-14-2025 12:00-0400 Diastolic blood driqeomt80 mm[Hg]Opal Ga DO Work Phone: [address] [place], [place] [address]10-14-2025 12:00-0400 SaO2% (BldA) [Mass fraction]94 %Opal Ga DO Work Phone: [facility]10-14-2025 12:00-0400 Systolic blood udxvhjjv060 mm[Hg]Opalamadou Ga DO Work Phone: [facility]10-14-2025 05:59-0400 Body tkuiru14 kgOpal Ga DO Work Phone: [facility]10-09-2025 13:08-0400 Body .64 cmOpal Ga DO Work Phone: [facility]10-08-2025 16:05-0400 Diastolic blood qrqcopxx94 mm[Hg]PHYSICIAN NO [facility]10-08-2025 16:05-0400Heart rate97 /minPHYSICIAN [facility]10-08-2025 16:05-0400Respiratory rate16 /minPHYSICIAN [facility]10-08-2025 16:05-8716EtV8% (BldA) [Mass fraction]100 %PHYSICIAN NO [facility]10-08-2025 16:05-0400Systolic blood ecopkkbw974 mm[Hg]PHYSICIAN NO [facility]10-08-2025 12:10-0400Body mvizrd473.64 cmPHYSICIAN [facility]10-08-2025 12:10-0400Body vhmkrchlifr66.2 [degF]PHYSICIAN [facility]10-08-2025 12:10-0400 Body .4 kgPHYSICIAN [facility]09-30-2025 08:56-0400Body .64 cmPHYSICIAN [facility]09-30-2025 08:56-0400Body ugeaia49 kgPHYSICIAN [facility]08-06-2025 08:00-0400Body mpgnubhnqfh63.6 [degF]Melvi Hindsb BULLDOZER OPERATOR Work Phone: [address] [place], [place] 2486608-06-2025 08:00-0400 Diastolic blood qnfriiih31 mm[Hg]Melvi Kiera BULLDOZER OPERATOR Work Phone: [facility]08-06-2025 08:00-0400 Heart rate67 /minAmanda Kiera BULLDOZER OPERATOR Work Phone: [facility]08-06-2025 08:00-0400 Respiratory rate18 /minAmanda Kiera BULLDOZER OPERATOR Work Phone: [facility]08-06-2025 08:00-0400 SaO2% (BldA) [Mass fraction]93 %Melvi Kiera BULLDOZER OPERATOR Work Phone: [facility]08-06-2025 08:00-0400 Systolic blood nhuyhwvo38 mm[Hg]Melvi Kiera BULLDOZER OPERATOR Work Phone: [address] [place], [place] 2486608-06-2025 06:11-0400 Body otzkta27.4 kgAmanda Kiera BULLDOZER OPERATOR Work Phone: [phone] [place], [place] 6008308-03-2025 03:35-0400 Inhaled oxygen flow rate2 L/minAmanda Kiera BULLDOZER OPERATOR Work Phone: [phone]08-02-2025 14:03-0400 Body .48 cmAmanda Kiera BULLDOZER OPERATOR Work Phone: [phone]08-01-2025 22:55-0400 Diastolic blood qsgagxod46 mm[Hg]Melvi Kiera BULLDOZER OPERATOR Work Phone: [phone]08-01-2025 22:55-0400 Heart yeyn259 /minAmanda Kiera BULLDOZER OPERATOR Work Phone: [phone] [place], [place] 2486608-01-2025 22:55-0400 Respiratory rate20 /minAmanda Kiera BULLDOZER OPERATOR Work Phone: [address] [place], [place] 2486608-01-2025 22:55-0400 SaO2% (BldA) [Mass fraction]98 %Melvi Kiera BULLDOZER OPERATOR Work Phone: [phone] [place], [place] 6008308-01-2025 22:55-0400 Systolic blood nkynbniw171 mm[Hg]Melvi Kiera BULLDOZER OPERATOR Work Phone: [phone] [place], [place] 6008308-01-2025 17:56-0400 Body ilnkbs972.48 cmAmanda Kiera BULLDOZER OPERATOR Work Phone: [phone] [place], [place] 6008308-01-2025 17:56-0400 Body .7 [degF]Melvi Kiera BULLDOZER OPERATOR Work Phone: [phone] [place], [place] 6008308-01-2025 17:56-0400 Body .1 kgAmanda Kiera BULLDOZER OPERATOR Work Phone: [phone]07-31-2025 14:00-0400 Body getrni284.48 cmAmanda Kiera BULLDOZER OPERATOR Work Phone: [facility]07-31-2025 14:00-0400 Body gjdzcogysxd78.2 [degF]Melvi Kiera BULLDOZER OPERATOR Work Phone: [facility]07-31-2025 14:00-0400 Diastolic blood rxromqgl81 mm[Hg]Melvi Kiera BULLDOZER OPERATOR Work Phone: [facility]07-31-2025 14:00-0400 Heart rate43 /minAmanda Kiera BULLDOZER OPERATOR Work Phone: [facility]07-31-2025 14:00-0400 Systolic blood hvkjvlel333 mm[Hg]Melvi Kiera BULLDOZER OPERATOR Work Phone: [phone]05-13-2025 11:27-0400 Body uodaqvkonlf33.7 [degF]Melvi Kiera BULLDOZER OPERATOR Work Phone: [facility]05-13-2025 11:27-0400 Diastolic blood daundjja01 mm[Hg]Melvi Kiera BULLDOZER OPERATOR Work Phone: [facility]05-13-2025 11:27-0400 Heart rate83 /minAmanda Kiera BULLDOZER OPERATOR Work Phone: [facility]05-13-2025 11:27-0400 Respiratory rate18 /minAmanda Kiera BULLDOZER OPERATOR Work Phone: [phone]05-13-2025 11:27-0400 SaO2% (BldA) [Mass fraction]99 %Melvi Kiera BULLDOZER OPERATOR Work Phone: [facility]05-13-2025 11:27-0400 Systolic blood vlgygaux990 mm[Hg]Melvi Kiera BULLDOZER OPERATOR Work Phone: [facility]05-13-2025 06:00-0400 Body vxkibv23.1 kgAmanda Kiera BULLDOZER OPERATOR Work Phone: [facility]05-09-2025 16:26-0400 Body ifaujh446.64 cmAmanda Kiera BULLDOZER OPERATOR Work Phone: 1(522)953-[address] [place], [place] 6008305-09-2025 04:00-0400 Inhaled oxygen flow rate2 L/minAmanda Kiera BULLDOZER OPERATOR Work Phone: 1(469)216-[address] [place], [place] 6008305-08-2025 19:00-0400 Diastolic blood bpryeycu54 mm[Hg]Melvi Kiera BULLDOZER OPERATOR Work Phone: [address] [place], [place] 2486605-08-2025 19:00-0400 Heart xllk476 /minAmanda Kiera BULLDOZER OPERATOR Work Phone: 1(242)677-[address] [place], [place] 6008305-08-2025 19:00-0400 Inhaled oxygen flow rate2 L/minAmanda Kiera BULLDOZER OPERATOR Work Phone: [address] [place], [place] 2486605-08-2025 19:00-0400 Respiratory rate24 /minAmanda Kiera BULLDOZER OPERATOR Work Phone: [address] [place], [place] 2486605-08-2025 19:00-0400 SaO2% (BldA) [Mass fraction]95 %Melvi Kiera BULLDOZER OPERATOR Work Phone: 1(917)970-[address] [place], [place] 6008305-08-2025 19:00-0400 Systolic blood swyfoaek419 mm[Hg]Melvi Kiera BULLDOZER OPERATOR Work Phone: [address] [place], [place] 2486605-08-2025 14:38-0400 Body hdypqc258.64 cmAmanda Kiera BULLDOZER OPERATOR Work Phone: 1(393)991-[address] [place], [place] 6008305-08-2025 14:38-0400 Body jtsszqidylt93.2 [degF]Melvi Kiera BULLDOZER OPERATOR Work Phone: [address] [place], [place] 2486605-08-2025 14:38-0400 Body hlxduu424.2 kgAmanda Kiera BULLDOZER OPERATOR Work Phone: 1(432)065-[address] [place], [place] 6008302-20-2025 12:09-0500 Body vdpdhinzkbp73.1 [degF]Partha Gabriel DPM Work Phone: [facility]02-20-2025 12:09-0500Diastolic blood hilbgumm31 mm[Hg]Partha Smartert DPM Work Phone: [facility]02-20-2025 12:09-0500Heart rate78 /min Partha Harvey DPM Work Phone: [facility]02-20-2025 12:09-0500Respiratory rate 18 /minVidyakhurram Gabriel DPM Work Phone: [facility]02-20-2025 12:09-0371ZoJ6% (BldA) [Mass fraction]98 %Partha Gabriel DPM Work Phone: [facility]02-20-2025 12:09-0500Systolic blood iohdjakz333 mm[Hg]Partha Smartert DPM Work Phone: [facility]01-09-2025 16:16-0500Body temperature 97.9 [degF]Opal Tjs DO Work Phone: [facility]01-09-2025 16:16-0500 Diastolic blood buxsnjcn69 mm[Hg]Opal Sparkss DO Work Phone: [facility]01-09-2025 16:16-0500 Heart rate79 /minEdmondamadou Kuns DO Work Phone: [facility]01-09-2025 16:16-0500 Respiratory rate18 /minEdmondamadou Kuns DO Work Phone: [facility]01-09-2025 16:16-0500 SaO2% (BldA) [Mass fraction]94 %Opal Sparkss DO Work Phone: [facility]01-09-2025 16:16-0500 Systolic blood hefxkzel767 mm[Hg]Opal Sparkss DO Work Phone: [facility]01-09-2025 04:08-0500 Body hztpos33.7 kgOpal Ga DO Work Phone: 1(883)[address] [place], [place] 2305901-07-2025 12:58-0500 Body .64 cmOpal Ga DO Work Phone: 7(065)9-[address] [place], [place] 2305901-04-2025 13:32-0500 Diastolic blood itfrhvrf97 mm[Hg]Opal Ga DO Work Phone: 1(214)9-[address] [place], [place] 2305901-04-2025 13:32-0500 Heart rate58 /minOpal Ga DO Work Phone: 5(836)6-[address] [place], [place] 2305901-04-2025 13:32-0500 SaO2% (BldA) [Mass fraction]96 %Opal Ga DO Work Phone: 0(027)[address]01-04-2025 13:32-0500 Systolic blood nfzmrxuf574 mm[Hg]Opal Ga DO Work Phone: 1(184)[address]01-04-2025 11:19-0500 Respiratory rate18 /minOpal Ga DO Work Phone: 2(121)3-[address] [place], [place] 2305901-04-2025 09:52-0500 Body gvdyyf098.64 cmOpal Ga DO Work Phone: 1(036)[address]01-04-2025 09:52-0500 Body wlukdmcycum78.6 [degF]Opal Ga DO Work Phone: 4(919)0-[address] [place], [place] 2305901-04-2025 09:52-0500 Body qgxupu72.6 kgOpal Ga DO Work Phone: 0(151)1-[address] [place], [place] 2305912-23-2024 10:46-0500 Body muofjzstfaq14.01 [degF]Randi Burris MD Work Phone: [facility]12-23-2024 10:46-0500Diastolic blood mm[Hg]Randi Burris MD Work Phone: [address] [place], [place] 6243212-23-2024 10:46-0500Heart rate95 /Joseph Burris MD Work Phone: [facility]12-23-2024 10:46-0500 Respiratory rate18 /Joseph Burris MD Work Phone: [facility]12-23-2024 10:46-7598OnN7% (BldA) [Mass fraction]96 %Randi Burris MD Work Phone: [facility]12-23-2024 10:46-0500Systolic blood mm[Hg]Randi Burris MD Work Phone: [facility]12-17-2024 07:45-0500Body .6 cmSmitali Burris MD Work Phone: [facility]12-17-2024 07:45-0500Body mass index (BMI) [Ratio]30.7 kg/w1YaowqmRandi Burris MD Work Phone: [facility]12-17-2024 07:45-0500Body .27 kgRandi Burris MD Work Phone: [facility]12-12-2024 15:20-0500Body icngqp289.6 cmTavo Mcintyre DO Work Phone: [facility]12-12-2024 15:20-0500 Body mass index (BMI) [Ratio]30.83 kg/v0WwawvknTavo Mcintyre DO Work Phone: [facility]12-12-2024 15:20-0500 Body .64 kgWisalvatore Mcintyre DO Work Phone: [facility]12-12-2024 15:20-0500 Diastolic blood sbprbowr86 mm[Hg]Tavo Mcintyre DO Work Phone: [facility]12-12-2024 15:20-0500 Heart wugl291 /Neel Mcintyre DO Work Phone: [facility]12-12-2024 15:20-0500 Systolic blood pxmufunj371 mm[Hg]Tavo Mcintyre DO Work Phone: [facility]12-09-2024 09:35-0500 Body ioraia790.64 cmOpal Ga DO Work Phone: [facility]12-09-2024 09:35-0500 Body mass index (BMI) [Ratio]30.7 kg/d9TfnwqOpal Sparkss DO Work Phone: 1(286)2-[address] [place], [place] 2305912-09-2024 09:35-0500 Body .18 kgOpal Ga DO Work Phone: 1(260)[address]12-09-2024 09:35-0500 Diastolic blood ybkrqsrl45 mm[Hg]Opal Sparksmyranda DO Work Phone: [phone]12-09-2024 09:35-0500 Heart rate51 /Ann Ga DO Work Phone: 1(359)3-[address] [place], [place] 7220412-09-2024 09:35-0500 Respiratory rate18 /minOpal Ga DO Work Phone: 1(400)5[facility]47[facility]12-09-2024 09:35-0500 SaO2% (BldA) [Mass fraction]95 %Opal Ga DO Work Phone: 1(814)6-[address] [place], [place] 2305912-09-2024 09:35-0500 Systolic blood mm[Hg]Opalamadou Sparkss DO Work Phone: 1(172)0-[address] [place], [place] 2305910-22-2024 12:47-0400 Body adecee349.64 cmOhio[facility]10-22-2024 12:47-0400Body mass index (BMI) [Ratio]28.8 kg/y8VarmeoqdyOhiohealth O'[facility]len[facility]10-22-2024 12:47-0400Body .19 kgOhio[facility]10-22-2024 12:47-0400Diastolic blood pzosugkl26 mm[Hg][facility] 12-27-2023 12:47-0400Heart rate78 /[facility] 12-27-2023 12:47-0400Respiratory rate16 /[facility] 12-27-2023 12:47-6825ByF8% (BldA) [Mass fraction]99 %[facility]10-22-2024 12:47-0400Systolic blood edxqveie640 mm[Hg][facility]07-17-2024 10:00-0400Body kjeqwg920.64 cmDO Opal Ga Work Phone: [facility]07-17-2024 10:00-0400 Body mass index (BMI) [Ratio]29.8 kg/m2DO Opal Ga Work Phone: [facility]07-17-2024 10:00-0400 Body ijhwvq47.91 kgDO Opal Ga Work Phone: [facility]07-17-2024 10:00-0400 Diastolic blood mm[Hg]DO Opal Ga Work Phone: [facility]07-17-2024 10:00-0400 Heart rate72 /MariAmrik Ga Work Phone: [facility]07-17-2024 10:00-0400 Respiratory rate16 /Annelise Ga Work Phone: [facility]07-17-2024 10:00-0400 Systolic blood kvggupsn628 mm[Hg]DO Opal Ga Work Phone: [facility]05-08-2024 10:30-0400 Diastolic blood xdnkeikz53 mm[Hg]Tavo Mcintyre DO Work Phone: [facility]05-08-2024 10:30-0400 Systolic blood jmcwzoda673 mm[Hg]Tavo Mcintyre DO Work Phone: [facility]05-08-2024 09:57-0400 Body rkyahi092.6 cmTavo Mcintyre DO Work Phone: [facility]05-08-2024 09:57-0400 Body mass index (BMI) [Ratio]29.8 kg/m9DvgqhfqTavo Carodon DO Work Phone: [facility]05-08-2024 09:57-0400 Body xcnhoy32.73 kgWisalvatore Carodon DO Work Phone: [facility]05-08-2024 09:57-0400 Heart rate60 /minWisalvatore Mcintyre DO Work Phone: [facility]01-12-2024 09:15-0500 Body hrdhto461.64 cmOpal Ga Other [employer] Other 01-12-2024 09:15-0500Body mass index (BMI) [Ratio]29.7 kg/z7KcpxvOpal Ga Other [employer] Other 01-12-2024 09:15-0500Body arlnzk38.46 kgEdmondamadou Tjmyranda Other [employer] Other 01-12-2024 09:15-0500Diastolic blood ppkfiokz14 mm[Hg] Opal Ga Other [employer] Other 01-12-2024 09:15-0500Respiratory rate16 /minOpal Ga Other [employer] Other 01-12-2024 09:15-0033PbS9% (BldA) [Mass fraction]97 % Opal Ga Other [employer] Other 01-12-2024 09:15-0500Systolic blood xdtlalkc675 mm[Hg] Opal Ga Other [employer] Other 07-12-2023 09:15-0400Body jzujiy764.64 cmOpal Ga Other [facility] [employer] Other 07-12-2023 09:15-0400Body mass index (BMI) [Ratio] 28.11 kg/e6IbdsoOpal Ga Other [facility] 07-12-2023 09:15-0400Body .02 kgOpal Ga Other [facility] 07-12-2023 09:15-0400Diastolic blood wyigswia08 mm[Hg] Opal Ga Other [place] [employer] Other 07-12-2023 09:15-0400Respiratory rate16 /minOpal Ga Other [facility] 07-12-2023 09:15-3459UnQ4% (BldA) [Mass fraction]96 % Opal Ga Other [place] [employer] Other 07-12-2023 09:15-0400Systolic blood cnronjjk857 mm[Hg] Opal Ga Other [employer] Other 05-03-2023 09:36-0400Body .64 cmOpal Ga Work Phone: 1(318) [phone][facility] DO Work Phone: 1(885) 704-302405-03-2023 09:36-0400Body mass index (BMI) [Ratio] 28.89 kg/f5XrgzgOpal Ga Work Phone: [phone]-Dyqpc [place] [employer] 250 DO Work Phone: 1(873) 193-314405-03-2023 09:36-0400Body surface area Derived from formula1.91 q4AvroxOpal Ga Work Phone: [phone]-Tnflf [facility] [employer] 250 DO Work Phone: 1(329) 357-902605-03-2023 09:36-0400Body rfrcou67.19 kgEdmondamadou Ga Work Phone: 1(385) [phone]-Fbozz [facility] [employer] 250 DO Work Phone: 1(595) 773-597005-03-2023 09:36-0400Diastolic blood dyjbknom31 mm[Hg] Opal Ga Work Phone: 1(864) [phone]-Jcvtj [facility] 250 DO Work Phone: 1(310) 202-160405-03-2023 09:36-0400Heart rate76 /minBryamadou Ga Work Phone: 1(295) [phone]-Pypyx [facility] 250 DO Work Phone: 1(988) 535-794105-03-2023 09:36-0400Systolic blood eimqfnic699 mm[Hg] Opal Ga Work Phone: 1(667) [phone]-Vzikr [facility] [employer] 250 DO Work Phone: 1(949) 257-713804-03-2023 10:15-0400Body otihji591.64 cmOpal Tjmyranda Other [employer] Other 04-03-2023 10:15-0400Body mass index (BMI) [Ratio]29.7 kg/s6HxxznOpal Ga Other [employer] Other 04-03-2023 10:15-0400Body ldqcip51.46 kgOpal Ga Other [employer] Other 04-03-2023 10:15-0400Diastolic blood bzaylglp04 mm[Hg] Opal Sparksmyranda Other [place] [employer] Other 04-03-2023 10:15-0400Respiratory rate16 /minOpal Daily Other [place] [employer] Other 04-03-2023 10:15-2595QrR3% (BldA) [Mass fraction]96 % Opal Sparksmyranda Other [place] [employer] Other 04-03-2023 10:15-0400Systolic blood svavncpc464 mm[Hg] Opal Tjmyranda Other [place] [employer] Other 01-04-2023 14:47-0500Body guilwp388.64 cmOpal Ga Work Phone: 1(967) [phone]-Awkfe [facility] [employer] 250 DO Work Phone: 1(550) 133-141001-04-2023 14:47-0500Body mass index (BMI) [Ratio] 30.18 kg/a3TikalOpal Ga Work Phone: 1(828) [phone]-Jwzcb [place] [employer] 250 DO Work Phone: 1(325) 139-554801-04-2023 14:47-0500Body surface area Derived from formula1.94 z9CfabeOpal Ga Work Phone: 1(455) [phone]-Bkjwk [place] [employer] 250 DO Work Phone: 1(219) 702-465701-04-2023 14:47-0500Body ejptoa92.82 kgEdmondamadou Ga Work Phone: 1(606) [phone]-Twfhg [place] [employer] 250 DO Work Phone: 1(270) 200-346301-04-2023 14:47-0500Diastolic blood xbgmsuxq24 mm[Hg] Opal P Kuns Work Phone: [phone]-Auhza [facility] [employer] 250 DO Work Phone: 1(113) [phone] 14:47-0500Heart rate72 /minOpal Sparkss Work Phone: [phone]-Yitxm [place] [employer] 250 DO Work Phone: 1(734) [phone] 14:47-0500Systolic blood gxfdboly303 mm[Hg] Opal Ga Work Phone: [phone]-Yccti [facility] [employer] 250 DO Work Phone: 1(896) [phone] 13:30-0500Body syrcit636.24 cmOpal Ga Other [employer] Other 01-03-2023 13:30-0500Body mass index (BMI) [Ratio] 42.82 kg/h7SxforOpal Ga Other [employer] Other 01-03-2023 13:30-0500Body ssodyf26.64 kgOpal Ga Other [employer] Other 01-03-2023 13:30-0500Diastolic blood lxhfigjg36 mm[Hg] Opal Ga Other [employer] Other 01-03-2023 13:30-0500Respiratory rate16 /minOpal Ga Other [employer] Other 01-03-2023 13:30-3762ZiI0% (BldA) [Mass fraction]96 % Opal Ga Other [employer] Other 01-03-2023 13:30-0500Systolic blood gafsgeet832 mm[Hg] Opal Ga Other [employer] Other 12-06-2022 15:45-0500Body qdrkvy967.24 cmOpal Sparksmyranda Other [employer] Other 12-06-2022 15:45-0500Body mass index (BMI) [Ratio] 44.92 kg/v2ZzbhcOpal Ga Other [employer] Other 12-06-2022 15:45-0500Body hyorlp14.9 kgEdmondamadou Ga Other [employer] Other 12-06-2022 15:45-0500Diastolic blood zbdenfrm21 mm[Hg] Opal Ga Other [employer] Other 12-06-2022 15:45-0500Respiratory rate16 /minEdmondamadou Ga Other [employer] Other 12-06-2022 15:45-5072FqY2% (BldA) [Mass fraction]98 % Opal Ga Other [employer] Other 12-06-2022 15:45-0500Systolic blood ozjaeawj844 mm[Hg] Opal Ga Other [employer] Other 11-12-2022 11:37-0500Body xjyynwvpfbh56.1 [degF]DO Opal Ga Work Phone: [facility]11-12-2022 11:37-0500 Diastolic blood lkqabwdd72 mm[Hg]DO Opal Ga Work Phone: [facility]11-12-2022 11:37-0500 Heart rate79 /minDO Opal Ga Work Phone: [facility]11-12-2022 11:37-0500 Respiratory rate16 /Annelise Ga Work Phone: [facility]11-12-2022 11:37-0500 SaO2% (BldA) [Mass fraction]97 %DO Opal Ga Work Phone: [facility]11-12-2022 11:37-0500 Systolic blood qtwnqkla990 mm[Hg]DO Opal Ga Work Phone: [facility]11-12-2022 04:10-0500 Body jflykl51.5 kgDO Opal Ga Work Phone: 1(955)974-[address] [place], [place] 2305911-09-2022 16:00-0500 Inhaled oxygen flow rate1 L/Annelise Ga Work Phone: [address] [place], [place] 7220411-07-2022 13:55-0500 Body hdmyyb407.64 cmDO Opal Ga Work Phone: [facility]11-05-2022 14:00-0400 Diastolic blood ycmgfwrg71 mm[Hg]DO Opal Ga Work Phone: [facility]11-05-2022 14:00-0400 Heart rate67 /Annelise Ga Work Phone: [facility]11-05-2022 14:00-0400 Inhaled oxygen flow rate3 L/Annelise Ga Work Phone: [facility]11-05-2022 14:00-0400 Respiratory rate19 /Annelise Ga Work Phone: [facility]11-05-2022 14:00-0400 SaO2% (BldA) [Mass fraction]99 %DO Opal Ga Work Phone: [facility]11-05-2022 14:00-0400 Systolic blood zdrytkdh272 mm[Hg]DO Opal Ga Work Phone: [facility]11-05-2022 09:41-0400 Body kpnehmmybid85.2 [degF]DO Opal Ga Work Phone: [facility]11-05-2022 09:38-0400 Body peycgb454.64 cmDO Opal Ga Work Phone: [facility]11-05-2022 09:38-0400 Body sahbzv68 kgDO Opal Ga Work Phone: [facility]11-03-2022 13:45-0400 Body qqhpof402.24 cmOpal Ga Other [employer] Other 11-03-2022 13:45-0400Body mass index (BMI) [Ratio] 48.42 kg/h2Vfaer Tjmyranda Other [employer] Other 11-03-2022 13:45-0400Body uarzod35.98 kgOpal Ga Other [employer] Other 11-03-2022 13:45-0400Diastolic blood plvvjaom16 mm[Hg] Opal Ga Other [employer] Other 11-03-2022 13:45-0400Respiratory rate16 /minOpal Tjmyranda Other [employer] Other 11-03-2022 13:45-5733IwN4% (BldA) [Mass fraction]94 % Opal Ga Other [employer] Other 11-03-2022 13:45-0400Systolic blood asogedto262 mm[Hg] Opal Ga Other [employer] Other 08-08-2022 09:00-0400Body heightEdmondamadou Tjmyranda Other [employer] Other 08-08-2022 09:00-0400Body mass index (BMI) [Ratio] 32.83 kg/l1PspozOpal Ga Other [employer] Other 08-08-2022 09:00-0400Body krnpky12.26 kgOpal Ga Other [employer] Other 08-08-2022 09:00-0400Diastolic blood cdovxckz70 mm[Hg] Opal Ga Other [employer] Other 08-08-2022 09:00-0400Respiratory rate16 /minOpal Ga Other [employer] Other 08-08-2022 09:00-3395GdB4% (BldA) [Mass fraction]95 % Opal Ga Other [employer] Other 08-08-2022 09:00-0400Systolic blood raqmgsws261 mm[Hg] Opal Ga Other [employer] Other 07-08-2022 10:00-0400Body heightEdmondamadou Tjmryanda Other [employer] Other 07-08-2022 10:00-0400Diastolic blood lxdvtxuz83 mm[Hg] Opal Ga Other [employer] Other 07-08-2022 10:00-0400Respiratory rate16 /minOpal Ga Other [employer] Other 07-08-2022 10:00-6422GdW2% (BldA) [Mass fraction]96 % Opal Ga Other [place] [employer] Other 07-08-2022 10:00-0400Systolic blood odxoarpk687 mm[Hg] Opal Ga Other [place] [employer] Other 06-27-2022 12:00-0400Body heightOpal Ga Other [place] [employer] Other 06-27-2022 12:00-0400Diastolic blood ulqgimqy66 mm[Hg] Opal Ga Other [place] [employer] Other 06-27-2022 12:00-0400Systolic blood mwtxfvis099 mm[Hg] Opal Ga Other [place] [employer] Other 05-31-2022 14:17-0400Body ovtldy510.64 cmOpal Sparksmyranda Work Phone: 1(228) [phone]-Iqlhu [employer] 250 DO Work Phone: 1(982) 262-670105-31-2022 14:17-0400Body mass index (BMI) [Ratio] 33.09 kg/a2XlylnOpal Sparkss Work Phone: [phone]-Znhyl [employer] 250 DO Work Phone: 1(518) [phone] 14:17-0400Body surface area Derived from formula2.02 s2ZynhdOpal Sparkss Work Phone: [phone]-Ldhqy [facility] [employer] 250 DO Work Phone: 1(599) 124-315805-31-2022 14:17-0400Body novrwv85.99 kgOpal Sparksmyranda Work Phone: [phone]-Lmvbu [employer] 250 DO Work Phone: 1(400) 357-122205-31-2022 14:17-0400Diastolic blood zwapgzuo84 mm[Hg] Opal Ga Work Phone: [phone]-Rwqiz [employer] 250 DO Work Phone: 1(728) 470-909205-31-2022 14:17-0400Heart rate54 /minOpal Sparkss Work Phone: [phone]-Usygl [employer] 250 DO Work Phone: 1(101) 606-745005-31-2022 14:17-0400Systolic blood umpvwfaq834 mm[Hg] Opal Ga Work Phone: [phone]-Uwzex [employer] 250 DO Work Phone: 1(458) 353-237111-15-2021 09:30-0500Body heightOpal Ga Other [employer] Other 11-15-2021 09:30-0500Body mass index (BMI) [Ratio] 33.67 kg/h2FwibdOpal Ga Other [employer] Other 11-15-2021 09:30-0500Body qziulu93.62 kgOpal Ga Other [employer] Other 11-15-2021 09:30-0500Diastolic blood htqpgofn96 mm[Hg] Opal Ga Other [employer] Other 11-15-2021 09:30-0500Respiratory rate16 /minOpal Ga Other [employer] Other 11-15-2021 09:30-9213MvS3% (BldA) [Mass fraction]96 % Opal Tjmyranda Other [facility] [employer] Other 11-15-2021 09:30-0500Systolic blood hunbljkw548 mm[Hg] Opal Ga Other [place] [employer] Other 11-01-2021 15:22-0400Body ghojeo787.64 cmOpal Myers Daily Work Phone: 1(826) [phone]-Iaiyo [facility] 250 DO Work Phone: 1(602) 790-708111-01-2021 15:22-0400Body mass index (BMI) [Ratio] 33.25 kg/m7QiakdOpal Ga Work Phone: 1(794) [phone]-Fbyvf [facility] 250 DO Work Phone: 1(474) 836-704811-01-2021 15:22-0400Body surface area Derived from formula2.03 v1Akdbn Louis Ga Work Phone: 1(478) [phone]-Tpyqm [facility] 250 DO Work Phone: 1(915) 124-223711-01-2021 15:22-0400Body .44 kgOpal Myers Daily Work Phone: 1(143) [phone]-Pnhtl [facility] 250 DO Work Phone: 1(130) 440-390811-01-2021 15:22-0400Diastolic blood uaykxodb77 mm[Hg] Opal Ga Work Phone: 1(316) [phone]-Brzfm [facility] 250 DO Work Phone: 1(773) 443-750111-01-2021 15:22-0400Heart rate56 /minOpal Ga Work Phone: 1(535) [phone]-Cpxsf [facility] 250 DO Work Phone: 1(861) [phone] 15:22-0400Systolic blood hhtcuowd557 mm[Hg] Opal P Kuns Work Phone: 1(859) [phone]-Dkhxr [facility] 250 DO Work Phone: Encounters Encounter DateEncounter TypeCare ProviderFacilityStart: 22-25-4576Njpbe Massouh MD-[facility] Work Phone: Start: 12-30-2024 End: 57-28-0403kdqivqofsyKdcuj Daily DO Work Phone: [facility]: [facility]2024 End: 60-79-4795Wnto Vinton M DO-[facility]: 12-27-2024 End: 74-07-9267iyxonibqlqBsoem Kuns DO Work Phone: [facility]: 12-27-2024 End: 95-19-8543Hkuwppwa ReferredMelissa Vidya Marker DO-[facility]: 69-80-3436Jgo-patient / Non-visit(Maki) Cristy FATIMA-[facility] Work Phone: Start: 12-27-2024 End: 39-78-6441Hufuihi Jane Marker DO-[facility]: 12-12-2024 End: 80-10-7741Ntkbgseoha and management of inpatientFrederbronson Mccartney MD-[facility] Work Phone: Start: 12-12-2024 End: 46-09-2017Tkioq Prasad MD-[facility] Work Phone: Start: 12-04-2024 End: 34-12-7944Bahclgp encounter procedureElenandrés Montoya BULLDOZER OPERATOR-[facility] [place] Work Phone: Start: 12-04-2024 End: 25-56-7065LncixKeely Montoya BULLDOZER OPERATOR-[facility] Work Phone: Start: 12-04-2024 End: 17-62-5627fpdxjnsaajXVREIOVFN NO [facility]Fire[facility] Work Phone: Start: 11-29-2024 End: 10-73-5609Lxjtppu encounter procedureKeely Montoya [facility] Work Phone: Start: 11-29-2024 End: 80-13-4245MipatKeely Montoya [facility] Work Phone: Start: 11-29-2024 End: 61-05-3016hanzmsxnfsCOBKCSODF NO [facility] Work Phone: Start: 11-06-2024 End: 82-62-7989lcawtxjlkqUdnaa Tjs DO Work Phone: [facility] Work Phone: Start: 11-06-2024 End: 57-78-8650Ruurbuh encounter procedureKeely Montoya [facility] Work Phone: start: 11-06-2024 End: 52-08-0669[facility] Work Phone: start: 10-31-2024 End: 40-14-1468KzttJovany Stovall MD-CT [facility] Work Phone: Start: 10-31-2024 End: 23-60-1658coekvbtwscAmult Kuns DO Work Phone: [facility] Work Phone: Start: 10-31-2024 End: 23-39-5848Isoewpq encounter procedureJovany Stovall MD-CT [facility] Work Phone: Start: 10-07-2024 End: 28-07-7072Qczwnbpeww and management of inpatientAmanda M Kiera BULLDOZER OPERATOR Work Phone: [facility] Work Phone: Start: 10-07-2024 End: 25-85-7847Psbremq R. Frings DO-3 [facility] Work Phone: Start: 03-23-6105Fiw-patient / Non-visitDafrederic Stovall MD[facility] Work Phone: start: 33-81-1679SzrmJovany Stovall MD[facility] Work Phone: start: 68-34-7098Tfs-patient / Non-visitMickari Reynolds MD[facility] Work Phone: Start: 32-91-3323UmflyqlFrankie Reynolds MD[facility] Work Phone: Start: 14-11-9703Mbv-patient / Non-visitDafrederic Stovall MD[facility] Work Phone: start: 77-10-0133rgltvztsmcn encounterMelvi Fink Kiera BULLDOZER OPERATOR Work Phone: [facility] Work Phone: Start: 32-43-4828Wpxnmza R. Estuardongs DO-3 [facility] Work Phone: Start: 10-04-2024 End: 76-02-3991fdtivqfbssVtysbt M Kiera BULLDOZER OPERATOR Work Phone: [facility] Work Phone: Start: 10-04-2024 End: 20-76-9035Cvbhngk encounter procedureMickari Reynolds MD[facility] Work Phone: Start: 10-04-2024 End: 41-81-3862DizugkvFrankie Reynolds MD[facility] Work Phone: Start: 09-24-2024 End: 07-69-0736Xulqhos encounter procedureW Be Mcinty[facility] Health Work Phone: Start: 09-24-2024 End: 09-24-2024W Be Mcintyre DO-Lab [facility] Work Phone: Start: 09-24-2024 End: 06-97-9461negknrwueeUbgvpq M Kiera BULLDOZER OPERATOR Work Phone: [facility] Work Phone: Start: 09-18-2024 End: 62-45-8963jogemwpdtsLnndcg Scott Kiera BULLDOZER OPERATOR Work Phone: [facility] Work Phone: Start: 09-18-2024 End: 62-37-1932Ytvcsyx encounter procedureKeely [facility]San[facility] Work Phone: start: 09-18-2024 End: 65-14-7054Qnbec [facility] Work Phone: start: 09-14-2024 End: 72-97-2678klqtfpelzqEwruif M Kiera BULLDOZER OPERATOR Work Phone: [facility] Work Phone: Start: 09-14-2024 End: 74-93-2726Lbonpts encounter procedureOpal Ga P DO-Lab [facility] Work Phone: Start: 09-14-2024 End: 78-01-9255Dxtzi Kuns P DO-Lab [facility] Work Phone: Start: 08-27-2024 End: 79-69-3507Fyvayvd encounter procedureBryamadou Sparkss P DO-Lab [facility] Work Phone: Start: 08-27-2024 End: 73-62-3866Qxbfz Kuns P DO-Lab [facility] Work Phone: Start: 08-27-2024 End: 45-92-5154fgmwxdcdlfBapdx KunsFacility:[facility] Start: 78-66-8991jhndacsydnSlwxowlbrRichard PompaFacility:Infectious DiseaseStart: 76-56-3396bvrxjpfnknGmhrui J GaleaFacility:EU [place]kyStart: 07-23-2024 End: 83-26-0063tnsrfuxsmxBoxuzy R BuntingFacility:[facility] Hospitaltart: 07-23-2024 End: 65-99-5048Itacxgr encounter procedureDarrin [facility] DO-Lab [facility] Work Phone: Start: 07-23-2024 End: 85-56-7736Tmtkyl [facility] DO-Lab [facility] Work Phone: Start: 2024 End: 90-04-3449Njowrcyv Result EncounterFredric H Itjo annkowitz DO Work Phone: [facility] External Department UnsolicitedStart: 2024 End: 91-04-9181Cwkooyhj Result EncounterFredric H Itzkowitz DO Work Phone: noms External Department UnsolicitedStart: 2024 Non-patient / Non-visitMichael Myranda Reynolds [facility] Work Phone: Start: 91-77-3454Zcjyys Kiera BULLDOZER OPERATOR Work Phone: [facility] Work Phone: Start: 07-12-2024 End: 59-39-7482Qdzgjvlnin and management of inpatientAmanda M Kiera BULLDOZER OPERATOR Work Phone: [facility] Work Phone: Start: 07-12-2024 End: 47-69-7644Lkpuht Kiera BULLDOZER OPERATOR Work Phone: [facility] Work Phone: Start: 07-12-2024 End: 13-49-4356ptpeqkokcnLYVDROSCandy HAMPTONRAFacility:CD:[id number]: 07-11-2024 End: 50-90-5122cazkowcmhyGsgiwexmbRichard Mcclellancility:Infectious DiseaseStart: 07-09-2024 End: 06-97-9491sismtwjvknHturdv R [facility] Work Phone: Start: 07-09-2024 End: 64-28-5610Djrpagwd ReferredDarrin Ray Bunting DO-Lab [facility] Work Phone: Start: 07-09-2024 End: 12-71-9522Nqnogk Bunting DO Work Phone: [facility]-Lab [facility] Work Phone: Start: 07-02-2024 End: 70-06-1202wphxtyhsvyJcqbgr R [facility] Work Phone: Start: 07-02-2024 End: 71-37-0697Yhuvgytj ReferredDarrin Ray Bunting DO-Lab [facility] Work Phone: Start: 07-02-2024 End: 96-77-9229Xzmrgf Bunting DO Work Phone: [facility]-Lab [facility] Work Phone: Start: 06-26-2024 End: 77-02-4038yofyeqtittFbnsuamhvRichard Mcclellancility:Infectious DiseaseStart: 06-25-2024 End: 28-36-9721llryedffdlYcjfp Kuns DO Work Phone: [facility] Work Phone: Start: 06-25-2024 End: 61-94-0223Rsmdztgk ReferredDarrin Ray Bunting DO-Lab [facility] Work Phone: Start: 06-25-2024 End: 90-04-8023Eervh Kuns DO Work Phone: [facility]-Lab [facility] Work Phone: Start: 06-18-2024 End: 86-58-3206isrwzewmdyQtgoa Kuns DO Work Phone: [facility] Work Phone: Start: 06-18-2024 End: 30-68-6435Lnfvnlhi ReferredBryamadou Sparkss DO Work Phone: [facility]-Lab [facility] Work Phone: Start: 06-18-2024 End: 09-45-6357Bnxlfrw encounter procedureDaalannaolinda Aguirre DO-Lab [facility] Work Phone: Start: 06-18-2024 End: 86-41-3894Vrfnp Kuns DO Work Phone: [facility]-Lab [facility] Work Phone: Start: 06-13-2024 End: 64-12-9458vpuyownqwiMbjhx Tjs DO Work Phone: [facility] Work Phone: Start: 06-13-2024 End: 42-08-6409Tedeszqg ReferredBryamadou Sparkss DO Work Phone: [facility]-Lab [facility] Work Phone: Start: 06-13-2024 End: 05-25-0811Wtlomhx encounter procedureBryamadou Sparkss DO Work Phone: [facility]-Lab [facility] Work Phone: Start: 06-13-2024 End: 03-58-5878Iddcl Kuns DO Work Phone: [facility]-Lab [facility] Work Phone: Start: 06-12-2024 End: 04-10-2713henlqkyyzgDpqvt M Lizzi DO Work Phone: [facility] Work Phone: Start: 06-12-2024 End: 89-14-5255Azujvur encounter procedureOpal Ga DO Work Phone: [facility]-Lab [facility] Work Phone: Start: 06-12-2024 End: 44-18-0094Vkwej Lizzi DO Work Phone: [facility]-Lab [facility] Work Phone: Start: 06-11-2024 End: 59-97-2213ybbrivxjmqTikvu M Lizzi DO Work Phone: [facility] Work Phone: Start: 06-11-2024 End: 89-14-4835Tqvyoho encounter procedureOpal Ga DO Work Phone: [facility]-Lab [facility] Work Phone: Start: 06-11-2024 End: 60-25-3604Yoesu Lizzi DO Work Phone: [facility]-Lab [facility] Work Phone: Start: 06-07-2024 End: 86-88-1502yjrjbaxtbxMnvoqb Noel Saltzman BULLDOZER OPERATOR-CNPFacility:Infectious DiseaseStart: 06-06-2024 End: 71-06-5727ptkozszuaaQezkc M Lizzi DO Work Phone: [facility] Work Phone: Start: 06-06-2024 End: 81-51-6995Zuerljst ReferredMarcos Martin DO Work Phone: [facility]-Lab [facility] Work Phone: Start: 06-06-2024 End: 59-67-7489Gvhlgql encounter procedureBryamadou Kuns DO Work Phone: [facility]-Lab [facility] Work Phone: Start: 06-06-2024 End: 84-86-6541Urwiy Lizzi DO Work Phone: [facility]-Lab [facility] Work Phone: Start: 06-04-2024 End: 63-81-9977qzcpoemedjKxtshc Noel Saltzman BULLDOZER OPERATOR-CNPFacility:Infectious DiseaseStart: 06-01-2024 End: 27-76-6230rrftyjrpjmQrrmzf TannaFacility:EU [place]kyStart: 05-28-2024 End: 26-86-9399nnlhrqgmmiWbmit M Lizzi DO Work Phone: [facility] Work Phone: Start: 05-28-2024 End: 43-56-9868Iykbfgw encounter procedureJaalondra Martin DO Work Phone: [facility]-Lab [facility] Work Phone: Start: 05-28-2024 End: 05-79-3454Hmhab Lizzi DO Work Phone: [facility]-Lab [facility] Work Phone: Start: 92-21-4467akzgpymwbnKhbto LueFacility:EU MarieuskyStart: 05-21-2024 End: 30-22-1057bikrsurerzYldxuy Noel Saltzman BULLDOZER OPERATOR-CNPFacility:Infectious DiseaseStart: 05-21-2024 End: 14-72-8117iucjqihmssHaivu M Lizzi DO Work Phone: [facility] Work Phone: Start: 05-21-2024 End: 18-03-1076Ztvxvrh encounter procedureJaalondra Martin DO Work Phone: [facility]-Lab [facility] Work Phone: Start: 05-21-2024 End: 77-10-3559Lkcef Veronica DO Work Phone: [facility] Work Phone: Start: 05-14-2024 End: 01-64-6679bropuyolkgYfghp Scott Martin DO Work Phone: [facility] Work Phone: Start: 05-14-2024 End: 80-64-3869Oqqjxgli ReferredJared Veronica DO Work Phone: [facility] Work Phone: Start: 05-14-2024 End: 49-19-2026Kjduzdx encounter procedureJared Veronica DO Work Phone: [facility] Work Phone: Start: 05-14-2024 End: 04-70-8627Kzirb Veronica DO Work Phone: [facility] Work Phone: Start: 05-10-2024 End: 37-56-8711ghvpkpnldtRoqhsd Noel Saltzman BULLDOZER OPERATOR-CNPFacility:Infectious DiseaseStart: 05-07-2024 End: 68-97-1457xttkrlcpsvYmtmf M Veronica DO Work Phone: [facility] Work Phone: Start: 05-07-2024 End: 53-29-1797Chcmrgz encounter procedureJared Veronica DO Work Phone: [facility] Work Phone: Start: 05-07-2024 End: 62-90-4393Vwxht Veronica DO Work Phone: [facility] Work Phone: Start: 04-30-2024 End: 98-15-7979ipirssxqgnHxahc M Lizzi DO Work Phone: [facility] Work Phone: Start: 04-30-2024 End: 78-43-2822Fosalur encounter procedureJared Veronica DO Work Phone: [facility] Work Phone: Start: 04-30-2024 End: 17-49-2412Ashnv Lizzi DO Work Phone: [facility]-Lab [facility] Work Phone: Start: 04-26-2024 End: 13-70-6484Ritjqia nursing facility care/day 25 minutesThkhurram Gabriel DPM Work Phone: Dr. Otto Bingham LLCComment on above:Pain due to onychomycosis of toenail of left foot (Primary Dx); Pain due to onychomycosis of toenail of right foot; Localized edema; Decreased pedal pulses; lobsterman (current) use of anticoagulantsStart: 04-23-2024 End: 30-89-5897yvvqghpkxvGppjd M Lizzi DO Work Phone: [facility] Work Phone: Start: 04-23-2024 End: 54-20-0270Xpoesbk encounter procedureJared Veronica DO Work Phone: [facility] Work Phone: Start: 04-23-2024 End: 70-64-6988Ckoez Lizzi DO Work Phone: [facility] Work Phone: Start: 04-15-2024 End: 85-80-0943Rpehtlvpeg and management of inpatientAtheer R Moises TIDWELL [facility]: 94-29-8363Grs-patient / Non-visitJared Veronica DO Work Phone: [facility] Work Phone: Start: 77-66-9917Fnmaa Veronica DO Work Phone: [facility] Work Phone: Start: 04-13-2024 End: 63-22-8605Ftv-patient / Non-visitJared Veronica DO Work Phone: [facility] Work Phone: Start: 04-13-2024 End: 64-72-0491Exgfg Veronica DO Work Phone: [facility] Work Phone: Start: 59-95-8696Hwq-patient / Non-visitJared Veronica DO Work Phone: [facility] Work Phone: Start: 60-78-0893Sgqej Veronica DO Work Phone: [facility] Work Phone: Start: 04-03-2024 End: 46-81-4118Pojtvxv encounter procedureJared Veronica DO Work Phone: [facility] [place] Work Phone: Start: 04-03-2024 End: 15-31-4959Hnluu Veronica DO Work Phone: [facility] [place] Work Phone: Start: 04-03-2024 End: 19-59-7272rpdeknqvzqSfwhj M Veronica DO Work Phone: [facility] Work Phone: Start: 03-10-2024 End: 88-19-3779Vkqrgruvls and management of inpatientOpal Ga DO Work Phone: [facility] Work Phone: Start: 03-10-2024 End: 19-83-1775Hiict Veronica DO Work Phone: [facility] Work Phone: Start: 03-02-2024 End: 87-67-7411hcolrediaqVvaown R BuntingFacility:[facility] Hospitaltart: 03-02-2024 End: 20-71-3730Gheqamos ReferredOpal Ga DO Work Phone: [facility] [place] Work Phone: Start: 02-21-2024 End: 67-96-0415Lzazirafcc and management of inpatientSmitali Burris MD Work Phone: strz ICU STEPDOWN TELEMETRY 4KComment on above: Longstanding persistent atrial fibrillation (HCC) (Primary Dx); Cardiomyopathy, unspecified type (HCC); Lumbar stenosis with neurogenic claudicationStart: 02-16-2024 End: 58-99-8072ghgtnctksxXBYRRGICarilion [facility] AmbulatoryStart: 02-16-2024 End: 63-69-5240Ksuvsqsef for preprocedural cardiovascular examinationCarilion [facility] Hospital AmbulatoryStart: 02-16-2024 End: 54-37-2447Mdpzbb outpatient visit 25 minutesMelrosewakefield [facility] DO Work Phone: [facility] on above:Preop cardiovascular exam; Heart failure, NYHA class 2; Chronic atrial fibrillation (Multi); 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; Primary hypertension; Mixed hyperlipidemia; BMI 30.0-30.9,adult; Former smokerStart: 02-16-2024 End: 51-41-7574Boltuaz encounter statusTavo Mcintyre DO Work Phone: [facility]Start: 73-68-8777Cmp- patient / Non-visitEdmondamadou Ga DO Work Phone: [facility] Work Phone: Start: 02-13-2024 End: 28-15-2253Nvkjdraxs for other preprocedural examinationOpal Ga DO Work Phone: [facility]: 02-13-2024 End: 55-00-3651Bzfoofx encounter procedureOpal Ga DO Work Phone: [facility] Work Phone: Start: 12-30-2023 End: 22-67-8596Dmwroxm encounter procedureOpal Ga DO Work Phone: [facility]-Lab [place] Work Phone: Start: 12-27-2023 End: 49-75-4125pbrsdtfihnRacnbetqpSouthview Medical Center Work Phone: Start: 12-27-2023 End: 92-50-1305Vqyyzxa encounter procedureFormerly [facility] Work Phone: Start: 10-24-2023 End: 06-46-4967aubnxilzaqQwixzdv Vytautas Giedraitis MDFacility:PM [facility]ie Start: 10-10-2023 End: 67-58-4958ylyarulepiUjhtdgh Vytautas Giedraitis MDFacility:[facility] [place] Start: 09-21-2023 End: 55-72-9323tirbccztjcPA Opal Ga Work Phone: [facility] Work Phone: Start: 09-21-2023 End: 60-48-3231Mhtcqex encounter procedureDO Opal Ga Work Phone: [facility] Family [facility] Work Phone: Start: 09-12-2023 End: 61-17-1123ybyjoxxxenAG Opal Ga Work Phone: [facility] Work Phone: Start: 09-12-2023 End: 97-64-3888Estzfkx encounter procedureDO Opal Ga Work Phone: [facility]-Lab [place] Work Phone: Start: 07-19-2023 End: 58-62-8887Grxcrhq encounter procedureDO Opal Ga Work Phone: [facility]-Lab [place] Work Phone: Start: 07-13-2023 End: 51-35-7542Ytquab outpatient visit 25 minutesBeckiscott Whitmore Francisco Javier Work Phone: uh [facility] HealthComment on above:Chronic atrial fibrillation (Multi); Essential hypertension, benign; Heart failure, NYHA class 2 (Multi); Hyperlipidemia, unspecified hyperlipidemia typeStart: 03-18-2023 End: 92-12-4310kxfhdpdaqlAqnsq Kuns Other [employer] Other Start: 21-37-4601Dzjdyq outpatient visit 25 minutes [facility] [place]Start: 12-31-2022 End: 77-90-1847hunechqppjMclof Kuns Other [employer] Other Start: 29-55-9806Qiljacxiy encounterOpal [facility] CastaliaStart: 12-06-2022 End: 03-07-5184ypayeykdngDyywa Kuns Other [employer] Other Start: 33-71-3258Zhsbkcajj encounterOpal SparksRu [facility] [place]Start: 11-30-2022 End: 62-51-9029zptrayrcwhEvrhs Kuns Other [facility] [employer] Other Start: 16-19-0922Dctxjotpq encounterBryamadou [facility] CastaliaStart: 67-15-5897nagzypujabNKEIAON HALKER .Facility:H1 Start: 09-15-2022 End: 40-63-5412aiycfnvrevThxbe Kuns Other [place] [employer] Other Start: 28-86-2764Arpztj outpatient visit 15 minutes [facility] CastaliaStart: 51-41-7857Onkkc UpdateOpal Ga Work Phone: [phone]-Izwfd [facility] [address] DO Work Phone: Start: 97-41-1356Ssmrveflc encounterBryamadou VenessaG Family Medicine CastaliaStart: 09-08-2022 End: 82-76-6003byhbpwaqytOB Opal Ga Work Phone: [facility] Work Phone: Start: 09-08-2022 End: 76-01-7635Mypciwa encounter procedureDO Opal Ga Work Phone: [facility]-Lab [place] Work Phone: Start: 85-77-1818Tb RenewalOpal Sparkss Work Phone: [phone]-Alkxm [facility] [facility] DO Work Phone: Start: 07-08-2022 End: 45-59-1901ylhufvdvniMUKCYFMXWEQL LAKSHMIPATHY .Facility:K8Dfrxg: 07-07-2022 Office outpatient visit 15 minutesOpal Sparkss Work Phone: [phone]-Wnqvf [facility] [address] DO Work Phone: Start: 30-45-2159stnlsmckbqOm. Bryan Keith Tjmyranda Facility:[id number]: 06-07-2022 End: 88-84-0083bsaxupqrfmIwxwv Kuns Other [employer] Biopharmamissouri bapt[facility] [employer] Other Start: 58-95-3930Neqhms outpatient visit 25 minutes Opal TjmyrandaReece [facility] [place]Start: 06-01-2022 End: 00-81-2111yrxdlhlgjxUsiqa Kuns Other [employer] Biopharmamissouri [facility] [employer] Other Start: 68-87-6916Vvuozymuz encounterEdmondamadou GaReece [facility] CastaliaStart: 05-13-2022 End: 39-59-6241tvrntjlcmiVWKOJIAH MURPHYFacility:S6Glnvm: 05-11-2022 End: 82-09-7729ubyxbyomavRropo Kuns Other [employer] [facility]opharmamissouri [facility] [employer] Other Start: 32-11-2444Jwfrznmib encounterEdmondamadou GaMurphy Army Hospital CastaliaStart: 04-15-2022 End: 25-97-5646ggyigrmwyyDY TROY BRAMBILA .Facility:S8Eqloz: 04-12-2022 End: 10-73-8450bvhsjtcmovGY Bryan Kuns Work Phone: [facility] Work Phone: Start: 04-12-2022 End: 60-75-9798Idccnrdvov RecurringDO Opal Ga Work Phone: [facility]-Physical Therapy [place] Work Phone: start: 03-30-2022 End: 07-96-6458zbdxprazbpFG TROY BRAMBILA .Facility:P0Rsvvx: 78-66-2622Oc RenewalOpal Ga Work Phone: [phone]-Jpusm [facility] [facility] DO Work Phone: Start: 26-68-4549pvmfajlkrsWvggox Ibrahim Facility:[id number]: 79-50-1281bspmcumyrhDbmbulatoryMs. Enedelia GomezFacility: Start: 79-61-7511Hrzfqxb encounter procedureOpal Ga Work Phone: [phone]-Vzjlq [facility] [facility] DO Work Phone: Start: 07-35-3653Crien UpdateOpal Ga Work Phone: [phone]-Jolyv [facility] [facility] DO Work Phone: Start: 37-40-6120Zpdxfhhlab RecurringDO Opal Ga Work Phone: [facility]-Physical Therapy [place] Work Phone: start: 03-11-2022 End: 98-36-9589zsrqpwhlzcAW Opal Ga Work Phone: [facility] Work Phone: Start: 03-11-2022 End: 97-26-7393Jzjhvjv encounter procedureDO Opal Ga Work Phone: [facility]-Lab [place] Work Phone: Start: 30-49-0801NUS, Provider: Enedelia Mix, Status: Pen, Time: 2:30 PMOpal Ga Work Phone: [phone]-Mpqel [facility] [facility] DO Work Phone: Start: 58-34-3778Dhptey outpatient visit 25 minutes Opal Ga Work Phone: [phone]-Itniw [facility] [facility] DO Work Phone: Start: 36-79-1044Hxdrrgk encounter procedureOpal Sparkss Work Phone: [phone]-Vvyka [facility] [facility] DO Work Phone: Start: 42-20-1508fwhbqhlfcmGbDane Gomez Facility:[id number]: 03-09-2022 End: 46-76-0381szlqzjxfmjYoibi Kuns Other noO[employer] Other Start: 80-78-9141Hqumle outpatient visit 15 minutes Opal SparksmyrandaReece [facility] CastaliaStart: 03-04-2022 End: 30-06-1035dhrzeswaboJkcuo Kuns Other [facility] [employer] Other Start: 04-50-8159Sxaxytccj encounterBryamadou DailyMurphy Army Hospital CastaliaStart: 73-60-4673Kc RenewalBryan P Kuns Work Phone: [phone]-BlrdeFairmont [facility] [address] DO Work Phone: Start: 03-03-2022 End: 30-81-8405vpkkaklworQamlo Kuns Other [place] [employer] Other Start: 74-78-6755Grqifvrzl encounterOpal DailyReece [facility] Cast[place]Start: 02-18-2022 End: 81-92-0749dynrdmfkrmCL TROY VelaFacility:T9Owcuw: 36-01-2766Kf RenewalBryan P Kuns Work Phone: [phone]-GuilsSt. John'S Hospital 250 DO Work Phone: Start: 02-09-2022 End: 49-59-2534rnnwsrxplePljuh Kuns Other [employer] Other Start: 40-71-0531Razlfs outpatient visit 25 minutes Opal SparksmyrandaReece [facility] [place]Start: 01-13-2022 End: 12-82-3199bptcvrgrvgCyjbs Kuns Other [employer] Other Start: 19-71-0847Osadkreba encounterOpal Coleman [facility] CastaliaStart: 86-12-2575rmggcgdmhvTw. Opal Ga Facility:[id number]: 42-96-2205utivfmwujaMandfv IbrahimFacility:9090Start: 42-63-7018fewpptncupCv. Opal GaFacility:9090Start: 01-09-2022 End: 46-33-5463Tjllbfccmr and management of inpatientDO Opal Ga Work Phone: [facility] SurgStart: 01-07-2022 End: 01-80-5361qhmzjxvufwHnzhh Kuns Other [employer] Other Start: 62-75-2702Bwqkrn outpatient visit 25 minutes Opal GaReece [facility] [place]Start: 12-25-2021 End: 61-65-1701ciyhcjlcodVbjyh Kunmyranda Other [employer] Other Start: 35-57-8061Zijundljn encounterOpal GaReece [facility] [place]Start: 12-17-2021 End: 32-16-2441wccmwgdkrdDA TROY BRAMBILA .Facility:I9Qzxan: 12-17-2021 End: 33-09-1659uldisqhqaaAF Opal Ga Work Phone: [facility] Work Phone: Start: 12-17-2021 End: 03-34-3250Qiekcdf encounter procedureDO Opal Ga Work Phone: [facility]-Lab [place]Start: 12-01-2021 End: 15-65-2745yvvfwcwerjCL TROY S BRAMBILA .Facility:C2Hnfly: 11-12-2021 End: 91-52-7174ekpoubbaqiBZ NELSY GAFacility:X2Rszkh: 10-12-2021 End: 07-94-1236phkbrfcuvrJvrfd Kuns Other [employer] Other Start: 77-72-6031Doftjb outpatient visit 15 minutes [facility] [place]Start: 09-28-2021 End: 15-48-6879ghfndlnjarLsijk Kuns Other [employer] [facility] [employer] Other Start: 60-21-2728Mtsgerzmh encounterOpal Coleman [facility] [place]Start: 09-28-2021 End: 62-92-3388Hxnvvwrjtw RecurringDO Opal Sparksmyranda Work Phone: [facility]-Physical Therapy [place]Start: 09-11-2021 End: 83-53-2906zykkkqutgzWavac Kuns Other [employer] [facility]armam[facility] [employer] Other Start: 76-00-1021Sfgttdj evaluation of patient and reportOpal GaReece [facility] CastaliaStart: 22-93-6990Orlavbdpo encounter Opal GaReece [facility] [place]Start: 09-10-2021 End: 71-71-3551hheavbpeozYC BRETT KUNSaint [facility] [employer] Other Start: 09-04-2021 End: 25-37-5619fiyptvlyvqUlmcq Kuns Other [place] [employer] Other Start: 16-18-0384Hqujjcvlg encounterOpal Coleman [facility] [place]aliaStart: 08-31-2021 End: 28-89-2383dgrjnvjuioAzanl Kuns Other [employer] Other Start: 71-83-4049Avcqok outpatient visit 25 minutes [facility] [place]Start: 08-17-2021 End: 93-28-7136vvacgdjklxIG TROY S МАРИНА .Facility:D7Mrpve: 08-13-2021 End: 24-78-8457ppnkcqcgmqVT TROY Myranda BRAMBILA .Facility:J5Phvlv: 45-40-3713Yzwgfu outpatient visit 15 minutesBryamadou Ga Work Phone: [phone]-YgfarChippewa City [facility] 250 DO Work Phone: Start: 87-24-0248jwhughlzcuQxDane Parker Daily Facility:[id number]: 07-28-2021 End: 02-59-2586ilxymkvqjwJT TROY Whitmore BRAMBILA .Facility:T3Fzixk: 05-25-2021 End: 34-38-0093dtwehrpdktZanox Kuns Other noHallspot Other Start: 65-24-0966Qqhbrmujy encounterOpal CliffordG Family Medicine CastaliaStart: 03-58-5798Hx RenewalOpal Ga Work Phone: [phone]-DirmaAlicia [place] [address] DO Work Phone: Start: 03-11-2021 End: 73-70-4723ibjyjmpgbkMfmnv Kuns Other [employer] Other Start: 60-78-8874Admfqbxqv encounterOpal Coleman [facility] CastaliaStart: 03-05-2021 End: 65-38-3280gelseiebbbOqozb Kuns Other noHallspot Other Start: 47-16-4250Gjfbwndqe encounterOpal CliffordG Family Medicine CastaliaStart: 71-17-7016Jb RenewalOpal Sparkss Work Phone: [phone]-[facility]msnhSt[facility] 250 DO Work Phone: Start: 01-19-2021 End: 77-78-8305jbmpwvmkkeTlfvd Kuns Other [employer] Other Start: 49-12-5777Ipszcs outpatient visit 25 minutes Opal GaFPG Family Medicine CastaliaStart: 50-29-1021Rh RenewalOpal Myers Daily Work Phone: [phone]-Unvgo [facility] 250 DO Work Phone: Start: 37-21-2737Td RenewalOpal Sparksmyranda Work Phone: [phone]-Hmdmy [facility] [address] [place] Work Phone: Start: 98-09-1457Sdjbcc outpatient visit 15 minutes Opal Ga Work Phone: [phone]-Msooq [facility] 250 DO Work Phone: Start: 46-48-0858Feeandd encounter procedureBryamadou Ga Work Phone: [phone]-Jipqi [facility] 250 DO Work Phone: Procedures DateProcedureProcedure DetailPerforming ClinicianStart: 82-28-6232Xokcn culture Opal Ga DO Work Phone: Start: 10-51-6725Dkkbh cultureOapl Ga DO Work Phone: Start: 55-64-0143YB cervical spine without contrast PHYSICIAN NO FAMILYStart: 37-96-6474CD of head without contrastPHYSICIAN NO FAMILYStart: 87-62-4000Lhqqf chest X-rayPHYSICIAN NO FAMILYStart: 40-66-4417DAR of lumbar spine with contrastPHYSICIAN NO FAMILYStart: 81-24-0475Sdei energy X- ray absorptiometryPHYSICIAN NO FAMILYStart: 15-87-9026RO of head without contrastOpal Ga DO Work Phone: Start: 20-83-8456XL of lumbar spine without contrast Opal Ga DO Work Phone: Start: 45-81-3565C-ray of lumbar spine, six views including bending viewsBryan Kuns DO Work Phone: Start: 24-36-4783Zdjll cultureAmanda Kiera BULLDOZER OPERATOR Work Phone: Start: 81-15-6316HF of head without contrastAmanda Kiera BULLDOZER OPERATOR Work Phone: Start: 51-25-9953Wpiwx chest X-rayAmanda Kiera BULLDOZER OPERATOR Work Phone: Start: 73-05-2317Rbkygtbj identified in Blood by CultureBryan Tjs DO Work Phone: Start: 37-75-6821Gpapm Screen MRSA/MSSABryan Tjs DO Work Phone: Start: 14-07-9358Jnulz cultureAmanda Kiera BULLDOZER OPERATOR Work Phone: Start: 34-45-6597Vkyalr Kiera BULLDOZER OPERATOR Work Phone: Start: 10-06-2024 End: 84-39-3741BG of head without contrastAmanda Kiera BULLDOZER OPERATOR Work Phone: Start: 00-44-8454PQ cervical spine without contrast Melvi Kiera BULLDOZER OPERATOR Work Phone: Start: 93-26-3497OD of facial bones without contrast Melvi Kiera BULLDOZER OPERATOR Work Phone: Start: 31-56-1433TN of head without contrastAmanda Kiera BULLDOZER OPERATOR Work Phone: Start: 90-04-7708Fnbrp cultureAmanda Kiera BULLDOZER OPERATOR Work Phone: Start: 50-28-8893Hsfzh cultureAmanda Kiera BULLDOZER OPERATOR Work Phone: Start: 90-65-9895Apgbd chest X-rayAmanda Kiera BULLDOZER OPERATOR Work Phone: Start: 67-38-0072Qsedhno microbial cultureAmanda Kiera BULLDOZER OPERATOR Work Phone: Start: 17-52-7442Ljbtctpcc microbial cultureAmanda Kiera BULLDOZER OPERATOR Work Phone: Start: 60-22-0001Nqoy stain microscopyAmanda Kiera BULLDOZER OPERATOR Work Phone: Start: 42-78-8006NUKMAJU CULTUREFredric H Itzkowitz DO Work Phone: Start: 30-65-5740RELLPBQNM CULTUREFredric H Itzkowitz DO Work Phone: Start: 25-80-9481BA of lower leg without contrast Melvi Kiera BULLDOZER OPERATOR Work Phone: Start: 41-23-3814JA of abdomen and pelvis without contrastAmanda Kiera BULLDOZER OPERATOR Work Phone: Start: 02-54-6930Jdrwk Screen MRSA/MSSAAmanda Kiera BULLDOZER OPERATOR Work Phone: Start: 26-34-3727Lpnouzdfr for occult blood in feces Melvi Kiera BULLDOZER OPERATOR Work Phone: Start: 42-30-7566Abhnej Kiera BULLDOZER OPERATOR Work Phone: Start: 92-43-8271Fnzdx chest X-rayAmanda Kiera BULLDOZER OPERATOR Work Phone: Start: 37-29-1654Cnqwpiwe identified in Blood by CultureAmanda Kiera BULLDOZER OPERATOR Work Phone: Start: 04-23-6077Lrmminteu ID (NA Multiplex Assay) Melvi Kiera BULLDOZER OPERATOR Work Phone: Start: 81-13-9565Bjphv cultureAmanda Kiera BULLDOZER OPERATOR Work Phone: Start: 07-12-2024 End: 53-68-1076Dqmbg nucleic acid assayAmanda Kiera BULLDOZER OPERATOR Work Phone: Start: 86-74-2587Psewhx Kiera BULLDOZER OPERATOR Work Phone: Start: 22-00-2105Mcbnv cultureJared Veronica DO Work Phone: Start: 15-25-2844LB pre/post mri xrayJared Veronica DO Work Phone: Start: 73-56-7282YF lumbar spine wo conJared Veronica DO Work Phone: Start: 04-03-2024 End: 67-16-3834Scvho Veronica DO Work Phone: Start: 10-40-3932Xwwsrzzw identified in Blood by CultureOpal Ga DO Work Phone: Start: 93-05-2182Hoauwfeowjk Panel (PCR)Opal Ga DO Work Phone: Start: 81-44-7990Wfvxj cultureOpal Ga DO Work Phone: Start: 37-22-3669Krjrz Veronica DO Work Phone: Start: 30-14-6761Vozyd chest X-rayOpal Ga DO Work Phone: Start: 59-72-9623Ytnou gap [Moles/Vol]Gustabo Diglio PA Work Phone: Start: 75-40-8473Llfcy metabolic panel calcium total Gustabo Diglio PA Work Phone: Start: 03-77-7966NPFXSTNOQY FILTRATION RATE, ESTIMATED Gustabo Diglio PA Work Phone: Start: 97-28-5064Bstdgc ecg 1-3 leads w/interpretation & reportUnknown Provider ResultStart: 20-67-6415Thsuwa ecg 1-3 leads w/interpretation & reportUnknown Provider ResultStart: 64-16-9855Tmruz gap [Moles/Vol]Gustabo Diglio PA Work Phone: Start: 90-43-0280Phcfj metabolic panel calcium total Gustabo Diglio PA Work Phone: Start: 13-33-8571FQXAQEWRYP FILTRATION RATE, ESTIMATED Gustabo Diglio PA Work Phone: Start: 34-21-0853Eoabfpipw virus A and B RNA and SARS-CoV-2 (COVID-19) N gene panel - Respiratory specimen by SMITHA with probe detectionRanda King MD Work Phone: Start: 59-89-2247QYLOILR, SEPSISRanda King MD Work Phone: Start: 83-03-4312Swqvltey identified in Blood by Aerobe cultureRanda King MD Work Phone: Start: 30-30-7523Mxgnn count complete automatedOlfannie King MD Work Phone: Start: 85-73-7285Gjoztjh bacterial blood aerobic w/id isolatesOlfannie King MD Work Phone: Start: 21-79-3585JNYANAZ, SEPSISOlfannie King MD Work Phone: Start: 15-12-4605Xfgxv gap [Moles/Vol]Gustabo Diglio PA Work Phone: Start: 62-46-9225Kyasv metabolic panel calcium total Gustabo Diglio PA Work Phone: Start: 65-33-5980SBYJHPWODV FILTRATION RATE, ESTIMATED Gustabo Diglio PA Work Phone: Start: 94-83-6301Nicyvs and language therapy regime Randa King MD Work Phone: Start: 86-72-8746Tlhoxquhvg exam chest single view Randa King MD Work Phone: Start: 07-52-7709Gy head/brain w/o contrast material Randa King MD Work Phone: Start: 92-72-9364Gurb bld gluc mntr dev cleared fda spec home useAlexis Diglio PA Work Phone: Start: 60-08-6051Ozgkd gap [Moles/Vol]Gustabo Diglio PA Work Phone: Start: 05-04-2074Defks metabolic panel calcium total Gustabo Diglio PA Work Phone: Start: 43-55-2687FNFGBZAYZC FILTRATION RATE, ESTIMATED Gustabo Diglio PA Work Phone: Start: 99-22-7554Dska tthrc r-t 2d w/wom-mode compl spec&colr Baldev King MD Work Phone: Start: 02-23-2024 End: 04-84-1050Nxmvvz ecg 1-3 leads w/interpretation & reportUnknown Provider ResultStart: 77-84-8677Ikjlx gap [Moles/Vol]Gustabo Diglio PA Work Phone: Start: 71-19-8074Ryfni metabolic panel calcium total Gustabo Diglio PA Work Phone: Start: 15-59-6317BHRSSXHEOZ FILTRATION RATE, ESTIMATED Gustabo Diglio PA Work Phone: Start: 40-65-3926Tujeio ecg 1-3 leads w/interpretation & reportUnknown Provider ResultStart: 31-11-2416Xcoboqqxizr peptideOlfannie King MD Work Phone: Start: 02-22-2024 End: 25-58-3789Kfungz ecg 1-3 leads w/interpretation & reportUnknown Provider ResultStart: 91-26-1531Sncz bld gluc mntr dev cleared fda spec home useAlexis Diglio PA Work Phone: Start: 78-69-7407Mzmtn gap [Moles/Vol]Gustabo Diglio PA Work Phone: Start: 38-06-8878Inflo metabolic panel calcium total Gustabo Diglio PA Work Phone: Start: 01-21-1163CUXUDVAKPL FILTRATION RATE, ESTIMATED Gustabo Diglio PA Work Phone: Start: 39-20-3475Plbf bld gluc mntr dev cleared fda spec home useAlexis Diglio PA Work Phone: Start: 68-13-8766Kcmsih ecg 1-3 leads w/interpretation & reportUnknown Provider ResultStart: 67-78-3848Yufnd count hemoglobinSttyrone Whittington Parvez PA-C Work Phone: Start: 37-12-8480Qmrjb spine 1 view specify level Selmerna Burris MD Work Phone: Start: 02-21-2024 End: 05-20-3549Toyhzlccfcf posterior/posterolateral lumbarSelvon Moshe Burris MD Work Phone: Start: 02-21-2024 End: 99-59-9011Tothjxwbn spine surgery local from same incisionSmitali Burris MD Work Phone: Start: 02-21-2024 End: 74-63-6144Zjx facetectomy & foramotomy [address] [place] Work Phone: Start: 83-19-9673Axbrnvin screenSeljacinton [address] [facility] [place] Work Phone: Comment on above:Performed at [facility] [address] [place] [address]Tukpd: 45-25-3032Xmyya typing serologic aboAlexis Diglio PA Work Phone: Start: 95-83-3307Hjw routine ecg w/least 12 lds w/i&r Tavo Mcintyre DO Work Phone: Start: 33-12-9054ZB of right hipDO Opal Sparksmyranda Work Phone: Start: 74-66-4449Akfuy X-ray of right hipDO Opal Daily Work Phone: Start: 05-14-4669Biwaz cultureDO Opal Daily Work Phone: Start: 38-55-6248Mhiye culture for bacteria, including anaerobic screenDO Opal Ga Work Phone: start: 52-43-6424Euwll chest X-rayDO Opal Ga Work Phone: Start: 56-91-7788VDO of lumbar spine with contrastDO Opal Ga Work Phone: Start: 90-25-4389Hkgxgtg ultrasonography of bilateral carotid arteriesDO Opal Ga Work Phone: Start: 36-59-5050Oyqfjwwcvnrilqb of bilateral kidneys DO Opal Ga Work Phone: Start: 46-02-3760BNKE Antigen (LFIA)DO Opal Ga Work Phone: Start: 40-43-1557Wlumi chest X-rayDO Opal Ga Work Phone: Start: 57-47-4676Vklolqtf tomography of thoracic spine without contrastDO Opal Ga Work Phone: Start: 63-60-3743BC cervical spine without contrastDO Opal Ga Work Phone: Start: 59-62-8189BA of head without contrastDO Opal Ga Work Phone: Start: 55-83-9460HE of lumbar spine without contrastDO Opal Ga Work Phone: Start: 46-41-5518Rbpmu colonoscopyOpal Ga Work Phone: Comment on above:[facility];Arthroplasty of kneeOpal P Tjs Work Phone: Comment on above:2016 and 2020;Arthroscopy of shoulder Opal P Tjs Work Phone: Cardiac catheterizationEdmondamadou P Tjs Work Phone: Epidural steroid injectionOpal P Tjs Work Phone: History of excision of lamina of lumbar vertebra for decompression of spinal cordHx of decompressive lumbar laminectomyAmanda Kiera BULLDOZER OPERATOR Work Phone: Comment on above:2011-with tumor [...] Work Phone: Plan of Treatment DateCare ActivityDetailAuthorStart: 95-01-2355PsipeCleveland Clinic Akron General Lodi Hospitaltart: 17-74-8223BbzzdmvlqHighland District Hospitaltart: 66-98-1831Rmumt [facility] Hospitaltart: 12-27-2024 Bacteria identified in Urine by CultureZanesville City Hospitaltart: 27-35-0425KqvpgwtxaHighland District Hospitaltart: 12-12-2024 Hospital admissionHighland District Hospitaltart: 28-68-8305Mixddkvf identified in Urine by CultureAccess Hospital [facility] Start: 34-69-4545IyawhCleveland Clinic Akron General Lodi Hospitaltart: 10-10-2024 [facility]: 10-06-2024 End: 04-08-1782OqlntufbyHighland District Hospitaltart: 39-46-7902Nbvjraew admissionHighland District Hospitaltart: 45-48-8826BjpdbbvpkHighland District Hospitaltart: 70-13-3623Marrkpkq identified in Urine by CultureZanesville City Hospitaltart: 96-73-0472JfljgCleveland Clinic Akron General Lodi Hospitaltart: 08-84-7981ijzvxqhofnZvigvlyvmwYhfcfogp:EU Ameena Start: 71-62-3037BjipfmlpoHighland District Hospitaltart: 91-41-7689VyuzmzkqoUniversity Hospitals St. [facility] CenterStart: 21-81-6441YjnaofvutUniversity Hospitals St. John Medical Center CenterStart: 45-64-8566CvgcsvbgmUniversity Hospitals St. [facility] CenterStart: 07-18-2024 End: 07-99-3282Lojpxsl encounter clgkoheot20/14/2025 10:00 AM EDT Office Visit [place] [address] [facility] [address] [place] [id number] Tavo Mcintyre DO [address] [place] [address] [facility] CenterStart: 43-49-5910BnrsaujvyHighland District Hospitaltart: 07-17-2024 End: 84-51-0351LortmimglUniversity Hospit[address] John Medical Center CenterStart: 06-78-1072Jlbwimwmjnptl metabolic 1999 panel - Serum or PlasmaUniversity Hospitals St. John Medical Center CenterStart: 07-16-2024 End: 97-05-2707BhezwjobsUniversity Hospitals St. [facility] CenterStart: 25-87-4746Ioiohhkzu microbial cultureUniversity Hospitals St. John Medical Center CenterStart: 77-42-9906Sxtuqoqvmaodx metabolic 1999 panel - Serum or PlasmaUniversity Hospitals St. John Medical Center CenterStart: 2024 End: 34-13-3627DgjurigaoUniversity Hospitals St. [facility] Center CenterStart: 59-48-4922Qyrlrtrt to infectious diseases physicianUniversity Hospitals St. [facility] CenterStart: 07-14-2024 Comprehensive metabolic 1999 panel - Serum or PlasmaUniversity Hospitals St. John Medical Center CenterStart: 07-14-2024 End: 44-04-4918ZgrjdyaulUniversity Hospitals St. [facility] Center CenterStart: 20-05-8932Bqvbrlbhqdilz metabolic 1999 panel - Serum or PlasmaUniversity Hospitals St. John [facility] Center CenterStart: 66-28-9362EbvkkgvtlUniversity Hospitals St. John [facility] Center CenterStart: 07-12-2024 End: 41-19-6018BpdjzgfxpUniversity Hospitals St. [facility] CenterStart: 52-31-9819Agihjyop admissionUniversity Hospitals St. [facility] CenterStart: 42-03-1266Arogljzjc culture of sputumUniversity Hospitals St. John Medical Center CenterStart: 70-09-3609Bhrzsakf therapy procedureUniversity Hospitals St. [facility] Center CenterStart: 67-34-6499Jtkkwsiy to occupational therapistHighland District Hospitaltart: 22-33-7005Ppaulurv to urologistHighland District Hospitaltart: 56-45-8132Wntfp culture [facility] Hospitaltart: 07-12-2024 End: 27-13-8812AzrdcrhthHighland District Hospitaltart: 07-12-2024 Hemoglobin.gastrointestinal [Presence] in StoolOhiohealth O'Bleness [facility] Start: 35-05-3236Wwqsoxmx of Right Lower Leg Skin, External ApproachHighland District Hospitaltart: 18-90-3256Bwgpjwxva of Infusion Device into Superior Vena Cava, Percutaneous ApproachHighland District Hospitaltart: 53-34-0767CxtkxwhumHighland District Hospitaltart: 06-12-2024 End: 49-79-4724Lvgni [facility] Hospitaltart: 03-15-2024 [facility]tart: 81-20-3505XwbjparfzHighland District Hospitaltart: 37-90-6292Pwgbvwfn identified in Blood by CultureBlood Culture [facility] Hospitaltart: 89-88-6336Zuqouwvt therapy procedure [facility] Hospitaltart: 57-74-3570Xiijrecm to occupational therapistHighland District Hospitaltart: 01-20-5022HkzgifpejHighland District Hospitaltart: 11-14-5816Kqpjhsnv admissionHighland District Hospitaltart: 03-10-2024 End: 22-33-3368GotxznuxdHighland District Hospitaltart: 21-70-2478Aeynief function panelHighland District Hospitaltart: 88-75-6121Vzcpyaf Directive DiscussionAdvance Directive DiscussionPremier Health Miami [facility] Hospital Southtart: 00-31-7554Ftrutd Wellness Visit (Medicare)Annual Wellness Visit (Medicare)Bon [facility] CenterAllyAlign Health [facility]: 40-34-7714Ktzwh-19 Vaccine ( season)Covid- 19 Vaccine ()[facility] Southtart: 58-60-5777VWNPU-19 Vaccine ()COVID-19 Vaccine ()Bon [facility] CenterAllyAlign Health [facility]: 56-52-2983FVPBN-19 Vaccine ( season)COVID-19 Vaccine ( season)[facility]: 99-74-3025Svicbzegr vaccinationInfluenza Vaccine (#1)[facility]St[facility]: 89-81-5964Pxoxlmqfm vaccinationFlu vaccine (#1)Rick [facility] HospitalStart: 07-13-2023 End: 76-39-6782Anpwlkj aminotransferase [Enzymatic activity/volume] in Serum or Plasma by With P-5'-PAlanine Aminotransferase Lab Routine Hyperlipidemia, unspecified hyperlipidemia type Expected: 07/13/2023 (Approximate), Expires: 07/12/2024[facility] Work Phone: Comment on above:Expected: 07/13/2023 (Approximate), Expires: 07/12/2024Start: 07-13-2023 End: 87-30-7046Hjufyawcj aminotransferase [Enzymatic activity/volume] in Serum or Plasma by With P-5'-PAspartate Aminotransferase Lab Routine Hyperlipidemia, unspecified hyperlipidemia type Expected: 07/13/2023 (Approximate), Expires: 07/12/2024[facility] Work Phone: Comment on above:Expected: 07/13/2023 (Approximate), Expires: 07/12/2024Start: 07-13-2023 End: 21-35-6374Vbhrc metabolic 2000 panel - Serum or PlasmaBasic Metabolic Panel Lab Routine Chronic atrial fibrillation (Multi) Essential hypertension, benign Heart failure, NYHA class 2 (Multi) Hyperlipidemia, unspecified hyperlipidemia type Expected: 07/13/2023 (Approximate), Expires: 07/12/2024[facility] Work Phone: Comment on above:Expected: 07/13/2023 (Approximate), Expires: 07/12/2024Start: 07-13-2023 End: 12-22-5911Fzbls 1996 panel - Serum or PlasmaLipid Panel Lab Routine Hyperlipidemia, unspecified hyperlipidemia type Expected: 07/13/2023 (Approx imate), Expires: 07/12/2024[facility] Work Phone: Comment on above:Expected: 07/13/2023 (Approximate), Expires: 07/12/2024Start: 07-13-2023 End: 59-66-0605Bawbzsryysh peptide B [Mass/volume] in BloodB-Type Natriuretic Peptide Lab Routine Heart failure, NYHA class 2 (Multi) Expected: 07/13/2023 (Approximate), Expires: 07/12/2024[facility] Work Phone: Comment on above:Expected: 07/13/2023 (Approximate), Expires: 07/12/2024Start: 89-84-1384TVE, Provider: Tavo Mcintyre, Status: Pen, Time: 9:40 AMFUV, Provider: Tavo Mcintyre, Status: Pen, Time: 9:40 AMMP-[facility] 250 DO Work Phone: Start: 87-79-2072LnvrusfxktejurguQhpaqbyobkuuqb [facility] HospitalStart: 36-11-9123RICMM-19 Vaccine ( season)COVID-19 Vaccine ( season)[facility] Start: 59-80-2151DLG, Provider: Tavo Mcintyre, Status: Pen, Time: 9:20 AMFUV, Provider: Tavo Mcintyre, Status: Pen, Time: 9:20 AMKlick[facility] [place] 250 DO Work Phone: Start: 14-18-5564VSEUYB MON, Provider: LEVAR MARES LOW VISION THERAPIST 1,[id number], Status: Pen, Time: 10:30 [facility] MON, Provider: LEVAR MARES LOW VISION THERAPIST 1,[id number], Status: Pen, Time: 10:30 AMMP-[facility] 250 DO Work Phone: Start: 02-85-7869GRE, Provider: Enedelia Mix, Status: Pen, Time: 2:30 PMFUV, Provider: Enedelia Mix, Status: Pen, Time: 2:30 PMMP-[facility] [address] DO Work Phone: Start: 27-36-3451TsqogrjniOhiohealth O'Bleness Hospital Start: 25-56-6634Yskzkhgf to infectious diseases physicianHighland District Hospitaltart: 02-64-6836Alhybmtd to neurologistHighland District Hospitaltart: 81-56-1399Fhepghlf to Social ServicesHighland District Hospitaltart: 18-36-1508Nfpjlwch admissionHighland District Hospitaltart: 78-51-5095QdkopfifrHighland District Hospitaltart: 12-64-4380ZAM, Provider: Tavo Mcintyre, Status: Pen, Time: 9:50 AMMP-[facility] [address] DO Work Phone: Start: 50-47-8125WQU, Provider: Tavo Mcintyre, Status: Pen, Time: 9:30 AMFUV, Provider: Tavo Mcintyre, Status: Pen, Time: 9:30 AM-[facility]-[place] 250 DO Work Phone: Start: 19-33-7757Xkzaohlkgcz Syncytial Virus (RSV) or age 60 yrs+ (1 - 1-dose 75+ series)Respiratory Syncytial Virus (RSV) or age 60 yrs+ (1 - 1-dose 75+ series)[facility] HospitalStart: 25-17-4473YJP High Risk: (Elderly (60+) or Population) (1 - 1-dose 75+ series)RSV High Risk: (Elderly (60+) or Population) (1 - 1-dose 75+ series)[facility] HospitalStart: 94-54-0671TFS Vaccine (1 - 1-dose 75+ series)RSV Vaccine (1 - 1-dose 75+ series)[facility]htart: 06-02-2016 Pneumococcal 65+ years Vaccine (2 of 2 - PPSV23 or PCV20)Pneumococcal 65+ years Vaccine (2 of 2 - PPSV23 or PCV20)[facility] HospitalStart: 06-02-2016 Pneumococcal Vaccine: 65+ Years (2 of 2 - PPSV23 or PCV20)Pneumococcal Vaccine: 65+ Years (2 of 2 - PPSV23 or PCV20)[facility]: 33-93-5237KOL patients and/or patients aged 60+ years (1 - 1-dose 60+ series)RSV patients and/or patients aged 60+ years (1 - 1-dose 60+ series)[facility]: 60-01-7067Tbmmusctezws Vaccine: 50+ (1 of 1 - PCV)Pneumococcal Vaccine: 50+ (1 of 1 - PCV)[facility]: 27-11-3068Rjzwpksb vaccine (1 of 2)Shingles vaccine (1 of 2)[facility]: 51-91-3226Suloqrzc Vaccine (1 of 2)Shingrix Vaccine (1 of 2) [facility]: 17-66-3342Uzbbbz Vaccines (1 of 2)Zoster Vaccines (1 of 2)[facility]: 07-08-2287Lcgekrdh ScreeningDiabetes ScreeningKettering Health – Soin Medical Centerrt: 39-51-0726AJzA/Tdap/Td Vaccines (1 - Tdap) DTaP/Tdap/Td Vaccines (1 - Tdap)[facility]: 34-79-1492VXeM/Tdap/Td vaccine (1 - Tdap)DTaP/Tdap/Td vaccine (1 - Tdap)[facility]: 97-67-5330Khvks microalbumin profileDTaP,Tdap,Td Vaccine (1 - Tdap)[facility]: 25-59-3678Jankpkk ScreeningAnxiety ScreeningKettering Health – Soin Medical Centerrt: 29-94-2337Wesdbirqqb ScreeningDepression ScreeningKettering Health – Soin Medical Centerrt: 97-75-5118Okpisvrt mellitus screeningDiabetes ScreeningUnFlower Hospital: 42-89-0211Qrokdodwuk Screen Depression ScreenBon [facility]: 01-37-6398Uyone panelLipidsBon [facility]: 63-08-5687Qropfanfmn measurementCreatinine Level [facility]: 41-26-6882Pkpzc panelLipid Panel [facility]: 05-11-1942Medicare Annual Wellness Visit Medicare Annual Wellness Visit (AWV)[facility]: 71-09-8694Ghnnurbty measurementPotTulsa ER & [facility] – [place] Start: 65-35-6642Popzssk stimulating hormone measurementTSAllianceHealth Clinton – ClintonAEROBIC CULTUREAEROBIC CULTURE Lab Routine 2024 12:15 PM EDTNOSD Healthcare Work Phone: ANAEROBIC CULTUREANAEROBIC CULTURE Lab Routine 2024 12:15 PM EDSweetwater Hospital AssociationAnion gap measurementOhiohealth Grant Medical Center Work Phone: Bacteria identified in Blood by Aerobe cultureBon [facility] HospitalBacteria identified in Urine by CultureUrine Culture [facility] End: 45-61-6977Dsilr metabolic 1999 panel - Serum or PlasmaBasic Metabolic Panel Lab Routine Daily for 1 Weeks starting 02/22/2024 until 02/28/2024, 6 completed Bon [facility] HospitalComment on above:Daily for 1 Weeks starting 02/22/2024 until 02/28/2024, 6 completedBasophil countOhiohealth Grant Medical Center Work Phone: Basophil percent differential countOhiohealth Grant Medical Center Work Phone: Blood culture for bacteria, including anaerobic screen Blood CultureOhiohealth O'Bleness HospitalCalcium [Mass/volume] in Serum or PlasmaOhiohealth Grant Medical Center Work Phone: Carbon dioxide, total [Moles/volume] in Serum or PlasmaOhiohealth Grant Medical Center Work Phone: Chloride [Moles/volume] in Serum or PlasmaOhiohealth Grant Medical Center Work Phone: Comprehensive metabolic 1999 panel - Serum or Plasma [facility]len[facility] HospitalCreatinine and Glomerular filtration rate.predicted panel - Serum, Plasma or BloodOhiohealth Grant Medical Center Work Phone: CT Lumbar spine WO [facility] HospitalCT Unspecified body region WO [facility] Debridement nail any method 1-5DEBRIDEMENT OF NAIL(S), 1-5 Procedures Routine Pain due to onychomycosis of toenail of left foot Pain due to onychomycosis of toenail of right foot Localized edema Decreased pedal pulses longterm (current) use of anticoagulants Ordered: 04/26/2024P [facility]O [facility] Work Phone: Comhgiu on above:Ordered: 04/26/2024Eosinophil percent differential countUniversity [facility] Work Phone: Eosinophils [#/volume] in [facility] Work Phone: Erythrocyte mean corpuscular volume determination [facility] Work Phone: Erythrocytes [#/volume] in BloodUniversity Hospitals St. [facility] Work Phone: Glucose [Mass/volume] in Serum or PlasmaUniversity Hospitals St. [facility] Work Phone: Glucose [Mass/volume] in Serum or PlasmaPOCT Glucose Point of Care Testing STAT As Needed until discontinued starting 02/21/2024on [facility] [employer] Work Phone: comment on above:As Needed until discontinued starting 02/21/2024Glucose [Mass/volume] in Serum or PlasmaPOCT Glucose Point of Care Testing STAT As Needed until discontinued starting 02/21/2024[facility] on above:As Needed until discontinued starting 02/21/2024 Hematocrit [Volume Fraction] of [facility] Work Phone: Hemoglobin [Mass/volume] in [facility] Work Phone: Hemoglobin distribution, width determinationUniversity Hospitals St. [facility] Work Phone: Leukocytes [#/volume] in [facility] Work Phone: Lymphocyte countUniversity Hospitals St. [facility] Work Phone: Lymphocyte percent differential countUniversity Hospitals St. [facility] Work Phone: Mean corpuscular hemoglobin concentration determinationUniversity Hospitals St. [facility] Work Phone: Mean corpuscular hemoglobin determinationUniversity Hospitals St. [facility] Work Phone: Measurement of renal functionUniversity Hospitals St. [facility] Work Phone: Monocyte countUniversity Hospitals St. [facility] Work Phone: Monocyte percent differential countUniversity Hospitals St. [facility] Work Phone: MR Lumbar spine WO and [facility] WO and W contrast [facility] HospitalNeutrophil countUniversity Hospitals St. [facility] Work Phone: Neutrophil percent differential countUniversity Hospitals St. [facility] Work Phone: Oxygen therapy [Minimum Data Set]Initiate Oxygen Therapy Protocol Respiratory Care Routine As Needed until discontinued starting 02/21/2024 [employer] on above:As Needed until discontinued starting 02/21/2024atient EducationUniversity Hospitals St. [facility] Work Phone: Patient referralUniversity Hospitals St. [facility] Work Phone: Platelet mean volume determinationUniversity Hospitals St. [facility] Work Phone: Platelets [#/volume] in BloodUniversity Hospitals St. [facility] Work Phone: Potassium [Moles/volume] in Serum or PlasmaUniversity Hospitals St. [facility] Work Phone: Sodium [Moles/volume] in Serum or PlasmaUniversity Hospitals St. [facility] Work Phone: Spirometry panelIncentive spirometry Respiratory Care Routine Every 2hr while awake until discontinued starting 02/21/2024 [employer] on above:Every 2hr while awake until discontinued starting 02/21/2024Urea nitrogen [Mass/volume] in Serum or PlasmaUniversity Hospitals St. [facility] Work Phone: End: 52-30-1937Fzslgiycte with Reflex to CultureUrinalysis with Reflex to Culture Lab Routine One Time for 1 Occurrences starting 02/25/2024 until 04/27/2023 [employer] on above:One Time for 1 Occurrences starting 02/25/2024 until 02/25/2024[facility] ViewsAd[facility] Immunizations Immunization DateImmunizationNotesCare ZapvejgdWyvzrbgg88-29-3338okzgxyrke virus vaccine, unspecified formulationDO [employer] Ga Work Phone: [facility]10-13-2023influenza, high dose seasonal, preservative-freeOpal Ga Other [facility]10-20-2022influenza, seasonal, injectableOpal Ga Other [facility]10-20-2022COVID-19 Moderna (BIvalent)Op[facility] [place] Other [facility]10-20-2022Fluzone High-Dose Quadrivalent 0.7 ML Intramuscular Suspension Prefilled SyringeOpal P Daily Work Phone: [facility]12-15-2021Moderna COVID-19 Vaccine 100 MCG/0.5ML Intramuscular SuspensionBryan P Tjs Work Phone: [facility]03-24-2021Moderna COVID-19 Vaccine 100 MCG/0.5ML Intramuscular SuspensionBryan P Tjs Work Phone: [facility]03-01-2021COVID-19 Vaccine Moderna - Documentation Purposes OnlyOpal Ga Other [facility]02-24-2021Moderna COVID-19 Vaccine 100 MCG/0.5ML Intramuscular SuspensionBryan P Kuns Work Phone: [facility]02-08-2021Moderna COVID-19 Vaccine 100 MCG/0.5ML Intramuscular SuspensionEdmondan P Kuns Work Phone: [facility]10-17-2020Fluzone High-Dose Quadrivalent 0.7 ML Intramuscular Suspension Prefilled SyringeEdmondan P Tjs Work Phone: [facility]10-01-2020influenza, seasonal, injectableBryan P Kuns Work Phone: [facility]09-18-2019influenza, seasonal, injectableBryan Kuns Other [facility]09-16-2019Seasonal trivalent influenza vaccine, adjuvanted, preservative freeBryan P Kuns Work Phone: [facility]09-01-2019influenza virus vaccine, unspecified formulationBryan P Kuns Work Phone: [phone]-[place] [address] [place] Work Phone: [phone], high dose seasonal, preservative-freeBryan P Kuns Work Phone: [facility]10-01-2018influenza, seasonal, injectableBryan Kuns Other [facility]09-01-2018influenza virus vaccine, unspecified formulationBryan P Kuns Work Phone: [phone]-[place]wyfaA[place] [address] DO Work Phone: [phone] virus vaccine, unspecified formulationBryan P Kuns Work Phone: [phone]-[place]hwphA[place] [address] DO Work Phone: [phone] conjugate vaccine, 13 valent Opal P Kuns Work Phone: [phone]-ZnkreAlic[place] [address] DO Work Phone: [phone] 40/XylocaineBryan Kuns Other [place] [employer] Other Payers DatePayer CategoryPayerPolicy [id number]-rbj [id number] Cross Blue Shield Managed CareBEA[facility] [id number].74073-88-7566Euipxyg84-15-7817 Medicare1.2.840.633797.1.13.647.2.7.3.395896.63040-53-8516O[facility]yH[facility] INDEMNITY .2.840.195181.1.13.159.2.7.9.473105.55783. [facility] [id number] .2.436700.562419 1960Medicare [id number] .8.50216[id number] .1.154814.3.579.[id number] .1.219829.3.579.2.15804-84-2925Ukcbkpt711894260 2.16.840.1.849612.3.579.2.50693-65-3294Syffffx761917028 2.16.840.1.668879.3.579.2.73573-87-5404Hcivpih867723753 2.16.840.1.567212.3.579.2.21173-52-0082Pjrgbuw394161009 2.16.840.1.628399.3.579.2.94704-59-0255Btkjimp815790782 2.16.840.1.747306.3.579.2.95492-46-7891Cogupmk825027384 2.840.1.489751.3.579.2.51383-09-3304Vbwclux421675982 2.840.1.591920.3.579.2.48670-95-4483Unzzmqt9662364 2.16840.1.411095.3.579.2.95485-33-7958Tbsxhhc9046144 2.16.840.1.105416.3.579.2.74945-33-7245Jarxccz8588795 2.840.1.010278.3.579.2.64214-05-0133Fkepxgv4362313 2.16.840.1.971544.3.579.2.81267-94-2485Hqonwih5013064 2.16.840.1.943016.3.579.2.30082-84-7695Smuxngk9189292 2.16.840.1.704510.3.579.2.65124-33-2845Yqqubmz6705857 2.16840.1.463121.3.579.2.77210-15-5648Pfbzimz8788598 2.16.840.1.532064.3.579.2.10702-02-6108Hpvysjm6617045 2.16.840.1.713970.3.579.2.70707-18-9447Jeslcqu3078407 2.16.840.1.721227.3.579.2.04473-42-2760Cdklnxb2589679 2.16.840.1.838406.3.579.2.71173-49-6419Eldcupf9597980 2.16.840.1.894158.3.579.2.04030-10-1950Bhkjswl0841906 2.16840.1.696198.3.579.2.86979-04-1911Iamxyyf584715817 2.16840.1.667879.3.579.2.0470-87-9234Owhezzy04456622 2.16.840.1.622263.3.579.2.55446-34-6967Atavzst31601305 2.16.840.1.927169.3.579.2.96186-85-3244Njsoqkv52005086 2.16.840.1.201297.3.579.2.63254-51-4985Fbneevi92692124 2.16840.1.092808.3.579.2.83847-43-4947Rayxgor92785122 2.16.840.1.792262.3.579.2.21926-91-2172Zrelagm56288327 2.16.840.1.266278.3.579.2.71791-77-5054Pcvjzhb910688613 2.16.840.1.566416.3.579.2.44642-68-0454Qtdgfaq734948329 2.16.840.1.735094.3.579.2.20094-78-5006Tifdhgh106204662 2.840.1.930746.3.579.2.06493-26-2328Wbsomij970516683 2.840.1.760216.3.579.2.76095-16-8989Blesocf663448994 2.84.1.206696.3.579.2.67429-51-9210Esixhap496573533 2.0.1.981685.3.579.2.20171-81-7861Ttqdqtj212897349 2..1.150165.3.579.2.24988-14-9603Dvsrvol994075630 2..1.138864.3.579.2.75831-52-3221Fnakelg047107835 2..1.770923.3.579.2.62556-09-7499Ifvcbao337964935 2..1.534693.3.579.2.64321-43-5023Tqabsuw598696221 2.840.1.559944.3.579.2.4174Jljmcgm10836177 2..1.733351.3.579.2.531 Hqiudbf25954897 2.840.1.058958.3.579.2.014Apyrowe99953363 2.840.1.570091.3.579.2.346Ayuzhbt97222861 2.840.1.208805.3.579.2.531 Lfdejlz39177353 2.840.1.100268.3.579.2.970Iucuned57119291 2.840.1.506287.3.579.2.533Etymzyi86750095 2.16.840.1.419619.3.579.2.531 Ndseuxr18277946 2.840.1.594194.3.579.2.826Kyuhmke34960436 2.840.1.191493.3.579.2.135Lpgpehu54558241 2.840.1.803448.3.579.2.531 Ijtaksm63315625 2.840.1.146737.3.579.2.220Bqbbjsj76214291 2.840.1.741091.3.579.2.696Hylpgan98260002 2.840.1.264065.3.579.2.531 Uljpivc38648404 2.840.1.381026.3.579.2.275Rxcypfq21927541 2.840.1.943512.3.579.2.944Xjlzeof12543853 2.0.1.576206.3.579.2.531 Qbfowyy75158831 2..1.465916.3.579.2.542Vydkmsc39195221 2.840.1.431333.3.579.2.739Hscyqkw74596697 2.840.1.642222.3.579.2.531 Xnvytni50612464 2.840.1.805617.3.579.2.723Skjbgpm13440129 2.840.1.042216.3.579.2.884Kkwkhqy99196823 2.840.1.562747.3.579.2.531 Duthdhh91536158 2.840.1.732045.3.579.2.056Scitvmy47637224 2.840.1.432111.3.579.2.326Qmlpgxr11693607 2.16.840.1.261711.3.579.2.531 Ykkqobn00285304 2.16.840.1.425339.3.579.2.415Rfqezja85548280 2.16.840.1.271457.3.579.2.073Bxtmtlh40814614 2.16.840.1.994301.3.579.2.531 Pjwbfyp60888623 2.16.840.1.215885.3.579.2.531 Social History DateTypeDetailFacilityStart: 07-13-2023 End: 22-97-0421Wxikb alcohol useDaily alcohol use-[facility] 250 DO Work Phone: Comment on above:1-2 beers;Coffee 2 cups daily;Quit smoking in 1979;Start: 07-13-2023 End: 57-85-6516Tgx Assigned At [facility] [employer] Other Start: 12-26-2019 End: 98-46-8974Ijadldq smoking status NHISEx-smoker (finding)[facility]: 65-87-8036Kjh [facility] 04-07-1963 End: 66-08-4678Nxkzbud of tobacco useCurrent smokerUnTogus VA Medical Center Work Phone: Start: 04-07-1963 End: 66-42-4550Skixvli of tobacco useCigarette SmokerUnTogus VA Medical Center Work Phone: Start: 07-13-2023 End: 35-79-9734Ptkpiyj use and exposureSmokeless tobacco non-userUnTogus VA Medical Center Work Phone: Start: 07-13-2023 End: 93-57-8615Reyfqcono beverage intakeCurrent drinker of alcohol (finding) [facility] Work Phone: Start: 69-26-9333Vnt assigned at birthNot on file [facility] Work Phone: Start: 07-03-2023 End: 80-79-2203Kpurigwz to SARS-CoV-2 (event)Not sureFort Hamilton HospitalStart: 55-23-3465Noxtjbmvd beverage intakeEx-drinker (finding)[facility] HospitalPhysical abuseDeniesBon [facility] CenterAllyAlign Health [facility] HospitalStart: 97-38-5629Dyaqmcn Commentdaily couple a dayBon [place] [facility] HospitalStart: 03-10-2024 End: 13-37-8033LdjZiyz (finding)[facility] HospitalTobafairview regional [facility] smoking status NHISTobacco smoking consumption unknownFitzgibbon HospitalStart: 07-13-2024 End: 69-46-4611AqeaudodtOhiohealth Grant Medical Center Work Phone: Medical Equipment Procedure CodeEquipment CodeEquipment Original TextEquipment IdentifierDates Arthroplasty, knee, total, minimally invasiveART SURF LEFT 11MM 10-11EFFDAStart: 28-30-6019Cfvyedfzbrbd, knee, total, minimally invasive ()[id number] FDAStart: 99-90-9398Gyyxcpolfqdw, knee, total, minimally invasive()[id number] FDA Start: 60-42-3728Ryjqwrmjwlph, knee, total, minimally invasive ()[id number] FDAStart: 36-79-2809Ozvuklftsked, knee, total, minimally invasive()[id number] FDAStart: 54-31-0585Osqyomjkevko, knee, total, minimally invasiveART SURF LEFT 11MM 10-11EFFDAStart: 74-60-7457Euktiictiryt, knee, total, minimally invasiveART SURF LEFT 11MM 10-11EFFDAStart: 76-12-5168Peuumbrbrgyk, knee, total, minimally invasiveART SURF LEFT 11MM 10-11EFFDAStart: 54-00-0370Hwuvjodxdbfu, knee, total, minimally invasiveART SURF LEFT 11MM 10-11EFFDAStart: 86-20-7759Rwkklddivifg, knee, total, minimally invasiveART SURF LEFT 11MM 10-11EFFDAStart: 11-05-2019 Arthroplasty, knee, total, minimally invasiveART SURF LEFT 11MM 10-11EFFDAStart: 46-36-9095Mrxkwxawrspe, knee, total, minimally invasiveART SURF LEFT 11MM 10-11EFFDAStart: 36-56-1938Isyefcvovfcq, knee, total, minimally invasiveART SURF LEFT 11MM 10-11EFFDAStart: 35-14-6394Btrifzlrtxog, knee, total, minimally invasiveART SURF LEFT 11MM 10-11EFFDAStart: 18-50-5801Rumhivklnxxh, knee, total, minimally invasiveART SURF LEFT 11MM 10-11EFFDAStart: 66-42-1713Ztqvwpvrkpcs, knee, total, minimally invasiveART SURF LEFT 11MM 10-11EFFDAStart: 11-05-2019 Arthroplasty, knee, total, minimally invasiveART SURF LEFT 11MM 10-11EFFDAStart: 24-15-0251Onlbtswljbwu, knee, total, minimally invasiveART SURF LEFT 11MM 10-11EFFDAStart: 90-55-7411Ghrcdlifldmi, knee, total, minimally invasiveART SURF LEFT 11MM 10-11EFFDAStart: 69-36-7726Htvvcbiammna, knee, total, minimally invasiveART SURF LEFT 11MM 10-11EFFDAStart: 73-35-8620Hmpbsifghpwa, knee, total, minimally invasiveART SURF LEFT 11MM 10-11EFFDAStart: 17-64-5863Lkheitxeziyy, knee, total, minimally invasiveART SURF LEFT 11MM 10-11EFFDAStart: 11-05-2019 Arthroplasty, knee, total, minimally invasiveART SURF LEFT 11MM 10-11EFFDAStart: 00-16-6760Jaxgoykhspkx, knee, total, minimally invasiveART SURF LEFT 11MM 10-11EFFDAStart: 44-21-0622Xwijncgqjrwm, knee, total, minimally invasiveFDA Start: 81-61-4098Ckcqqjmwjwar, knee, total, minimally invasiveFDAStart: 62-18-7212Sjyczohysdjk, knee, total, minimally invasiveART SURF LEFT 11MM 10-11EFFDAStart: 48-71-4177Wdzkofmfjwnk, knee, total, minimally invasiveART SURF LEFT 11MM 10-11EFFDAStart: 98-57-1062Traqjcszdzjb, knee, total, minimally invasiveFDAStart: 27-38-8959Bmjeowatwqps, knee, total, minimally invasiveFDA Start: 83-67-4854Unnuklzbcper, knee, total, minimally invasiveFDAStart: 70-33-0118Jmrtoqkawfor, knee, total, minimally invasiveFDAStart: 11-05-2019 Arthroplasty, knee, total, minimally invasiveFDAStart: 94-65-8454Ujufufoocqur, knee, total, minimally invasiveART SURF LEFT 11MM 10-11EFFDAStart: 11-05-2019 Arthroplasty, knee, total, minimally invasiveART SURF LEFT 11MM 10-11EFFDAStart: 88-61-5711Wtknbiypfnjk, knee, total, minimally invasiveART SURF LEFT 11MM 10-11EFFDAStart: 72-72-8171Cimmbgcpzbhx, knee, total, minimally invasiveART SURF LEFT 11MM 10-11EFFDAStart: 65-80-8253Izvwgaefqwxx, knee, total, minimally invasiveFDAStart: 96-82-6942Fmkuckxunhzt, knee, total, minimally invasiveFDA Start: 11-46-5480Iqbezmkoxltg, knee, total, minimally invasiveART SURF LEFT 11MM 10-11EFFDAStart: 02-48-5596Jycegsvxlozv, knee, total, minimally invasiveART SURF LEFT 11MM 10-11EFFDAStart: 80-05-7991Tvowhmszmyel, knee, total, minimally invasiveART SURF LEFT 11MM 10-11EFFDAStart: 30-29-0013Ozxjvuizyhcl, knee, total, minimally invasiveART SURF LEFT 11MM 10-11EFFDAStart: 79-57-5984Jeoosmypinjb, knee, total, minimally invasiveART SURF LEFT 11MM 10-11EFFDAStart: 11-05-2019 Arthroplasty, knee, total, minimally invasiveART SURF LEFT 11MM 10-11EFFDAStart: 23-76-2278Exinarokqzil, knee, total, minimally invasiveFDAStart: 11-05-2019 Arthroplasty, knee, total, minimally invasiveART SURF LEFT 11MM 10-11EFFDAStart: 86-18-8465Ijviviazbwmv, knee, total, minimally invasiveFDAStart: 11-05-2019 Goals DatePatient GoalDesired Activity/State Functional Status RdtsTexcfbnsnnCtnhitLyvjajyi48-92-4522Jzpwjnubyr statusPatient is Progressing [facility]ard [facility] Work Phone: [phone] statusPatient Not at Baseline [facility] Work Phone: 1(682) [phone] statusPatient is Progressing Toward [facility] Work Phone: [phone] statusPatient is Progressing Toward [facility] Work Phone: [phone] statusPatient at Baseline [facility] Work Phone: [phone] statusPatient at Baseline [facility] Work Phone: [phone] statusPatient is Progressing Toward [facility] Work Phone: Mental Status AfkdHrfyjiyypbEwzctkIfpvzucx74-68-2908Ffgoligko functionPatient at Baseline [facility] Work Phone: [phone] functionCognitive Status Patient at BaselineUniversity [facility] Work Phone: [phone] functionPatient at Baseline [facility] Work Phone: [phone] functionPatient at Baseline [facility] Work Phone: [phone] functionPatient at Baseline [facility] Work Phone: [phone] functionPatient at Baseline [facility] Work Phone: [phone] functionCognitive Status Patient at BaselineUniversity [facility] Work Phone: Clinical Notes 05-23-2006 to 12-17-2024 Note Date & MnkxAkzuXmevtbiq54-00-8817 Progress note Author Michele Knight [facility] HospitalNote Date/TimeOctober 2024 8:35pm [place] [address] Hospitalist Progress Note Signed Patient: Tavo Wallis Jr MR# : [id number] : 1940 Acct:[id number] Age/Sex: 84 / M Adm Date: 5 Loc: 4N Room: 5T4435-5 Type: ADM IN Attending Dr: Michele Knight [...] - Continue PT/OT, plan for discharge to assisted facility for further therapy needs A-fib on [...] signed by Michele Knight MD> 12/17/242034 [facility] Work Phone: 1(817) 284-422710-13-2025 Progress note Author [facility] CenterNote Date/TimeOctober 2024 4:47pm [place] [address] Cardiology Progress Note Signed Patient: Tavo Wallis Jr MR# : [id number] : 1940 Acct:[id number] Age/Sex: 84 / M Adm Date: 5 Loc: 4N Room: 8P3262-8 Type: ADM IN Attending Dr: Michele Knight [...] with RVR while on chronic anticoagulation. His UZMXJ3OWCBhdiul is 4 and HAS-BLED score is also [...] % (Auto) 64.7 Lymph % (Auto) 17.9 Sutton % (Auto) 10.4 Eos % (Auto) 6.2 Baso % (Auto) 0.8 Nucleat RBC Rel Count 0.1 Neut # (Auto) 2.2 Lymph # (Auto) 0.6 L Sutton # (Auto) 0.4 Eos # (Auto) 0.2 [...] signed by Bhupinder Mcintyre DO> 12/17/241646 [facility] Work Phone: 1(763) 183-224510-12-2025 Progress note Author Akash Mccartney [facility] HospitalNote Date/TimeOctober 2024 9:46pm [place] [address] Hospitalist Progress Note Signed Patient: Tavo Wallis Jr MR# : [id number] : 1940 Acct:[id number] Age/Sex: 84 / M Adm Date: 5 Loc: Room: [address] [place] [address] Type: ADM IN Attending Dr: Akash Mccartney [...] - Continue PT/OT, plan for discharge to assisted facility for further therapy needs A-fib on [...] signed by Akash Mccartney MD> 12/16/242145 [facility] Work Phone: 1(796) 692-709610-11-2025 Progress note Author Akash Mccartney [facility] HospitalNote Date/TimeOctober 2024 4:39pm [place] [address] Hospitalist Progress Note Signed Patient: Tavo Wallis Jr MR# : [id number] : 1940 Acct:[id number] Age/Sex: 84 / M Adm Date: 5 Loc: 4N Room: [address] [place] [address] Type: ADM IN Attending Dr: Akash Mccartney [...] Syringe IV-PUSH 12/12/25 21:59 Not Given QSHIFT [facility] Trazodone HCl 50 mg 12/12/24 18:24 [...] - Continue PT/OT, plan for discharge to assisted facility for further therapy needs A-fib on [...] future Documented By: Akash Mccartney MD 5 [id number] Signed By: <Electronically signed by Akash Mccartney MD> 12/15/24 9159 [facility] Work Phone: 1(365) 197-606010-10-2025 Progress note Author Akash Mccartney [facility] HospitalNote Date/TimeOctober 2024 5:22pm [place] [address] Hospitalist Progress Note Signed Patient: Tavo Wallis Jr MR# : [id number] : 1940 Acct:[id number] Age/Sex: 84 / M Adm Date: 5 Loc: 4N Room: [address] [place] [address] Type: ADM IN Attending Dr: Akash Mccartney [...] Tablet PO 12/12/25 21:59 400 mg QHS [facility] Administration Non-Formulary Medication 3 mg 12/12/24 22:00 12/13/24 23:08 Eszopiclone [Lunesta] PO 12/12/25 21:59 Not Given QHS [facility] Nystatin 1 applic 12/12/24 21:00 12/14/24 [...] - Continue PT/OT, plan for discharge to assisted facility for further therapy needs A-fib on [...] by Akash Mccartney MD> 12/14/24 1722 [facility] Work Phone: 1(294) 370-593010-10-2025 Consult note Author Bhupinder Mcintyre [facility]Note Date/TimeOctober 2024 4:05pm [place] [address] Cardiology Consult Note Signed Patient: Tavo Wallis Jr MR# : [id number] : 1940 Acct:[id number] Age/Sex: 84 / M Adm Date: Loc: 4N Room: [address] [place] [address] Type: ADM IN Attending Dr: Akash Mccartney [...] with RVR while on chronic anticoagulation. His CIEAZ7UACDxsaoc is 4 and HAS-BLED score is also [...] themain issue with his falling and weakness. [facility] Medical History Abrasion of arm, left Fall [...] drinks a day >6 Social History Comments: [facility] rehab Meds Medications and Allergies [...] x10E3/uL Lymph # (Auto) 1.2 (1.00-4.8) x10E3/uL Sutton # (Auto) 0.5 (0.0-0.8) x10E3/uL Eos # [...] <Electronically signed by RES Janie Khan> 12/14/24 7840 [facility] Work Phone: 1(698) 519-189310-09-2025 Progress note Author Akash Mccartney [facility]Note Date/TimeOctober 2024 5:16[place] [address] Hospitalist Progress Note Signed with Addenda Patient: Tavo Wallis Jr MR# : [id number] : 1940 Acct:[id number] Age/Sex: 84 / M Adm Date: 5 Loc: 4 Room: [address] [place] [address] Type: ADM IN Attending Dr: Akash Mccartney [...] weaned down to 5mg/h. Addendum Documented By: Aksah Mccartney MD 12/13/241715 Addendum Signed By: <Electronically [...] studies Documented By: Akash Mccartney MD [id number] Signed By: <Electronically signed by Akash Mccartney MD> 12/13/24 9639 [facility] Work Phone: 1(692) 327-753910-09-2025 History and physical note Author Akash Mccartney [facility]Note Date/TimeOctober 2024 3:14[place] [address] Hospitalist H&P Signed Patient: Tavo Wallis MR# : [id number] : 1940 Acct:[id number] Age/Sex: 84 / M Adm Date: 5 Loc: 4N Room: 9W5189-5 Type: ADM IN Attending Dr: Akash Mccartney [...] that which is noted above in HPI [facility] Medical History Abrasion of arm, left Fall [...] drinks a day >6 Social History Comments: [facility] rehab Meds Medications and Allergies [...] % (Auto) 15.9 % (.) 12/12/24 12: Sutton % (Auto) 7.5 % (.) 12/12/24 12: Eos % (Auto) 4.4 % (.) 12/12/24 12:25 Baso % (Auto) 0.6 % (.) 12/12/24 12: Nucleat RBC Rel Count 0.3 /100 WBC (0-0.5) 12/12/24 12: Neut # (Auto) 3.5 x10E3/uL (1.8-7.7) 12/12/24 12: Lymph # (Auto) 0.8 x10E3/uL (1.00-4.8) L 12/12/24 12: Sutton # (Auto) 0.4 x10E3/uL (0.0-0.8) 12/12/24 12:25 [...] pH 5.5 (5.0-9.0) 12/12/24 13:19 Ur Specific [place] 1.004 (1.001-1.030) 12/12/24 13:19 Urine Protein Negative [...] <Electronically signed by Akash Mccartney MD> 12/13/24 1081 [facility] Work Phone: 1(490) 639-520510-08-2025 [facility] [place] [address] [place] [address] CT Scan Report Signed Patient: Tavo Wallis Jr MR# : [id number] : 1940 Acct:[id number] Age/Sex: 84 / M ADM Date: 5 Loc: ER Room: Type: [facility] ER Attending Dr: Copies to: Sree Thao DO~ Ordering Provider: Sree Thao DO Date of Service: 12/12/24 CT/CT cervical spine wo con: fall ([id number]) CT/CT head/brain wo con: fall CT head/brain [...] Mahoney M.D. 12/12/2024 1:53 PM Dictation Location: [place] [address] Transcribed By: [facility] 12/12/24 1353 Dictated By: Shaquille Mahoney II, MD 12/12/24 1346 Signed By: 12/12/24 1353 [facility] Work Phone: 1(960) 228-150508-27-2025 [facility] [place] [address] [place] [address] CT Scan Report Signed Patient: Tavo Wallis Jr MR# : [id number] : 1940 Acct:[id number] Age/Sex: 84 / M ADM Date: 5 Loc: CT Room: Type: [facility] Attending Dr: Jovany Stovall MD Copies to: [...] Cardoso M.D. 10/31/2024 5:33 PM Dictation Location: [place] [address] Transcribed By: [facility] 10/31/24 1733 Dictated By: Esa Cardoso DO 10/31/24 1726 Signed By: 10/31/24 1733 [facility]08-27-2025 Radiology Diagnostic study note [facility] [place] [address] [place] [address] CT Scan Report Signed Patient: Tavo Wallis Jr MR# : [id number] : 1940 Acct:[id number] Age/Sex: 84 / M ADM Date: 5 Loc: CT Room: Type: [facility] Attending Dr: Jovany Stovall MD Copies to: [...] Cardoso M.D. 10/31/2024 5:26 PM Dictation Location: [place] [address] Transcribed By: [facility] 10/31/241725 Dictated By: Esa Cardoso DO 10/31/24 171 Signed By: 10/31/241725 [facility]08-05-2025 Progress note Author Frankie Johnson [facility] Date/TimeAugust 2024 12:52[place] [address] Hospitalist Progress Note Signed Patient: Tavo Wallis Jr MR# : [id number] : 1940 Acct:[id number] Age/Sex: 84 / M Adm Date: 5 Loc: Room: [address] [place] [address] Type: ADM IN Attending Dr: Frankie Johnson [...] <Electronically signed by Frankie Johnson DO> 10/09/24 [facility] Work Phone: 1([phone] 161-609008-04-2025 Progress note Author Frankie Johnson [facility] Date/TimeAugust 2024 8:15[place] [address] Hospitalist Progress Note Signed Patient: Tavo Wallis Jr MR# : [id number] : 1940 Acct:[id number] Age/Sex: 84 / M Adm Date: 5 Loc: Room: [address] [place] [address] Type: ADM IN Attending Dr: Frankei Johnson DO Copies to: ~ Date of [...] Tablet PO 10/06/25 06:29 Not Given DAILY.0630 [facility] Magnesium Oxide 400 mg 10/06/24 09:00 [...] signed by Frankie Johnson DO> 10/08/[address] [facility] Work Phone: 1(172) 118-106008-03-2025 Progress note Author Franck Gagnon [facility] Date/TimeAugust 2024 10:[place] [id number] Hospitalist Progress Note Signed with Addenda Patient: Tavo Wallis Jr MR# : [id number] : 1940 Acct:[id number] Age/Sex: 84 / M Adm Date: 5 Loc: Room: [address] [place] [address] Type: ADM INOo Attending Dr: Franck Gagnon [...] by Franck Gagnon DO> 10/07/24 0959 [facility] Work Phone: 1(459) 303-408408-03-2025 Progress note Author Jovany Stovall [facility] Date/TimeAugust 2024 9:04[place], [place] [address] Neurosurgery Progress Note Signed Patient: Tavo Wallis Jr MR# : [id number] : 1940 Acct:[id number] Age/Sex: 84 / M Adm Date: 5 Loc: 3T Room: [address] [place] [address] Type: ADM INOo Attending Dr: Franck Gagnon [...] patient up in my office in [id number] of the head. He could be seen by my nurse practitioner atthat time. Documented By: Jovany Stovall MD 10/07/24901 Signed By: <Electronically signed by MD Jovany Stovall> 10/07/24903 [facility] Work Phone: 1(883) 203-464808-03-2025 Radiology Diagnostic study [facility] Work Phone: 1(438) [phone] Radiology Diagnostic study [facility] Work Phone: 1(616) 614-446508-02-2025 Progress note Author Michele Knight [facility] Date/TimeAugust 2024 8:32[place] [address] Progress Note Signed Patient: Tavo Wallis Jr MR# : [id number] : 1940 Acct:[id number] Age/Sex: 84 / M Adm Date: 5 Loc: 3T Room: [address] [place] [address] Type: ADM INOo Attending Dr: Franck Gagnon [...] signed by Michele Knight MD> 10/06/242031 [facility] Work Phone: 1(745) 276-738008-02-2025 Radiology Diagnostic study [facility] Work Phone: 1(221) [phone] Progress note Author Franck Gagnon [facility] Date/TimeAugust 2024 11:47[place] [address] Hospitalist Progress Note Signed Patient: Tavo Wallis Jr MR# : [id number] : 1940 Acct:[id number] Age/Sex: 84 / M Adm Date: 5 Loc: 3T Room: [address] [place] [address] Type: ADM INOo Attending Dr: Franck Gagnon [...] DO Documented By: Franck Gagnon DO 10/06/24 1057 Signed By: <Electronically signed by Franck Gagnon DO> 10/06/24 6598 [facility] Work Phone: 1(400) 633-612208-02-2025 Consult note Author Jovany Stovall [facility] Date/TimeAugust 2024 9:00[place] [id number] Neurosurgery Consult Note Signed Patient: Tavo Wallis Jr MR# : [id number] : 1940 Acct:[id number] Age/Sex: 84 / M Adm Date: 5 Loc: 3T Room: [address] [place] [address] Type: ADM INOo Attending Dr: Franck Gagnon [...] negative unless noted below or in HPI [facility] Medical History (Updated 10/06/24 @ 08:53 by [...] drinks a day >6 Social History Comments: [facility] Meds Medications and Allergies Allergies [...] % (Auto) 65.2, Lymph % (Auto) 19.8, Sutton % (Auto) 9.9, Eos % (Auto) 4.7, Baso % (Auto) 0.4, Nucleat RBC Rel Count 0.2, Neut # (Auto) 3.7, Lymph # (Auto) 1.1, Sutton # (Auto) 0.6, Eos # (Auto) 0.3, [...] you. Documented By: Jovany Stovall MD 10/06/24 0814 Signed By: <Electronically signed by MD Jovany Stovall> 10/06/24 09 [facility] Work Phone: [phone] History and physical note Author Frankie Johnson [facility] Date/TimeAugust 2024 5:25[place], [place] [address] Hospitalist H&P Signed Patient: Tavo Wallis Jr MR# : [id number] : 1940 Acct:[id number] Age/Sex: 84 / M Adm Date: 5 Loc: 3T Room: [address] [place] [address] Type: ADM INOo Attending Dr: Frankie Johnson [...] risk. Continue fall precautions. Consult to PT/OT. [facility] Medical History Insomnia Hypothyroidism Hypertension Constipation BPH [...] drinks a day >6 Social History Comments: [facility] Meds Medications and Allergies Allergies [...] % (Auto) 19.8 % (.) 10/05/24 19:30 Sutton % (Auto) 9.9 % (.) 10/05/24 19:30 Eos % (Auto) 4.7 % (.) 10/05/24 19:30 Baso % (Auto) 0.4 % (.) 10/05/24 19:30 Nucleat RBC Rel Count 0.2 /100 WBC (0-0.5) 10/05/24 19:30 Neut # (Auto) 3.7 x10E3/uL (1.8-7.7) 10/05/24 19:30 Lymph # (Auto) 1.1 x10E3/uL (1.00-4.8) 10/05/24 19:30 Sutton # (Auto) 0.6 x10E3/uL (0.0-0.8) 10/05/24 19:30 [...] signed by Frankie Johnson DO> 10/06/24524 [facility] Work Phone: 1([phone] 998-397408-01-2025 Radiology Diagnostic study [facility] Work Phone: 1(390) 702-827808-01-2025 Radiology Diagnostic study [facility] Work Phone: 1([phone]) 204-387408-01-2025 Radiology Diagnostic study [facility] Work Phone: [phone] 349-125407-31-2025 Evaluation note* Diagnosis Onset Date Resolution Status [...] right heelacute December 12, 2024 2:39pm [facility] Work Phone: 1([phone] 466-487907-31-2025 Evaluation note* Diagnosis Onset Date Resolution Status [...] fibrillation with RVR resolvedOctober 2024 2:39pm [facility] Work Phone: 1([phone] 575-575007-15-2025 Evaluation note* Diagnosis Onset Date Resolution Status Admit Date Hx of decompressive lumbar laminectomy acuteJuly 2024 3:12pmNeurogenic claudication due to lumbar spinal stenosis acuteJuly 2024 3:12pmRadicular low back painacuteJuly 2024 3:12pm Severe back painacuteJuly 2024 3:12pmCatheter-associated urinary tract infectionacuteJuly 2024 1:51pmCatheter-associated urinary tract infection acuteAugust 2024 7:05amIntracranial hemorrhageacuteAugust 2024 7:05am Abrasion of arm, leftinactiveAugust 2024 7:05amFallinactiveAugust 2024 7:05amFeverdeletedAugust 2024 7:05am [facility] Work Phone: [phone] Evaluation note* Diagnosis Onset Date Resolution Status [...] 9:43amSevere back pain acuteSeptember 2024 9:43am [facility] Work Phone: [phone] Evaluation note* Diagnosis Onset Date Resolution Status [...] 9:43amAtrial fibrillation with RVRacuteOctober 2024 2:39pm [facility] Work Phone: [phone] 414-488405-13-2025 Progress note Author Frankie Reynolds [facility] Date/TimeMay 2024 8:51[place] [address] Infect. Disease Progress Note Signed Patient: Tavo Wallis Jr MR# : [id number] : 1940 Acct:[id number] Age/Sex: 84 / M Adm Date: 5 Loc: Room: [address] [place] [address] Type: ADM IN Attending Dr: Mario Jordan [...] 300 Mg Tablet) 300 mg PO DAILY [facility] Stop: 07/13/25 08:59 Last Admin: 07/17/24 08:15 Dose: 300 mg Apixaban (Apixaban 5 Mg Tablet) 5 mg PO BID [facility] Stop: 07/15/25 20:59 Last Admin: 07/17/24 08:15 Dose: 5 mg Atorvastatin Calcium (Atorvastatin 40 Mg Tablet) 40 mg PO DAILY [facility] Stop: 07/13/25 08:59 Last Admin: 07/17/24 08:15 Dose: 40 mg Bumetanide (Bumetanide 1 Mg Tablet) 1 mg PO DAILY@0800 [facility] Stop: 07/15/25 07:59 Last Admin: 07/17/24 08:15 Dose: 1 mg Cefepime HCl (Maxipime) 2 gm in 50 mls @ 12.5 mls/hr IV Q12H [facility] Last Admin: 07/17/24 08:15 Dose: 12.5 mls/hr Vancomycin HCl (Vancomycin) 1 gm in 250 mls @ 250 mls/hr IV Q24H [facility] Last Infusion: 07/16/24 12:00 Dose: Infused Levothyroxine Sodium (Levothyroxine 150 Mcg Tablet) 150 mcg PO DAILY.0630 [facility] Stop: 07/13/25 06:29 Last Admin: 07/17/24 08:15 Dose: 150 mcg Magnesium Oxide (Magnesium Oxide 400 Mg Tablet) 400 mg PO DAILY [facility] Stop: 07/13/25 08:59 Last Admin: 07/17/24 08:16 Dose: 400 mg Eszopiclone 3 Mg (Tablet) 3 mg PO QHS [facility] Stop: 07/12/25 21:59 Last Admin: 07/16/24 22:10 Dose: 3 mg Pom (Eszopiclone 3 (Mg Tablet)) 3 mg PO QHS [facility] Stop: 07/20/25 21:59 Oxycodone/Acetaminophen (Oxycodone/Acetaminophen 5-325 [...] By: <Electronically signed by MD Frankie Reynolds> 07/17/2440 [facility] Work Phone: 1([phone]) 313-552205-12-2025 Progress note Author Mario Jordan [facility] Date/TimeMay 2024 2:59[place] [address] Hospitalist Progress Note Signed Patient: Tavo Wallis Jr MR# : [id number] : 1940 Acct:[id number] Age/Sex: 84 / M Adm Date: 5 Loc: Room: [address] [place] [address] Type: ADM IN Attending Dr: Mario Jordan [...] gout, cardiomyopathy, history of CHF, was sent [facility] ED from [facility] for chief concern for hematuria. Patient [...] Daily weights - Heart healthy diet - PT/OT-assisted facility - Full code SCD for DVT prophylaxis Documented By: Mario Jordan MD 07/16/241454 Signed By: <Electronically signed by Mario Jordan MD> 07/16/241458 [facility] Work Phone: [phone] Progress note Author Frankie Reynolds [facility] Date/TimeMay 2024 9:28[place] [address] Infect. Disease Progress Note Signed Patient: Tavo Wallis Jr MR# : [id number] : 1940 Acct:[id number] Age/Sex: 84 / M Adm Date: 5 Loc: Room: [address] [place] [address] Type: ADM IN Attending Dr: Mario Jordna MD Copies to: ~ Date of Service: [...] 500 Mg Tablet) 500 mg PO TID [facility] Stop: 07/12/25 21:59 Last Admin: 07/15/24 [...] 5 Mg Tablet) 5 mg PO BID [facility] Stop: 07/15/25 20:59 Last Admin: 07/15/24 22:09 Dose: 5 mg Atorvastatin Calcium (Atorvastatin 40 Mg Tablet) 40 mg PO DAILY [facility] Stop: 07/13/25 08:59 Last Admin: 07/15/24 08:33 Dose: 40 mg Bumetanide (Bumetanide 1 Mg Tablet) 1 mg PO DAILY@0800 [facility] Stop: 07/15/25 07:59 Last Admin: 07/15/24 08:33 Dose: 1 mg Cefepime HCl (Maxipime) 2 gm in 50 mls @ 12.5 mls/hr IV Q12H [facility] Last Admin: 07/15/24 20:05 Dose: 12.5 mls/hr Vancomycin HCl (Vancomycin) 1 gm in 250 mls @ 250 mls/hr IV Q24H [facility] Levothyroxine Sodium (Levothyroxine 150 Mcg Tablet) 150 mcg PO DAILY.0630 [facility] Stop: 07/13/25 06:29 Last Admin: 07/16/24 05:21 Dose: 150 mcg Magnesium Oxide (Magnesium Oxide 400 Mg Tablet) 400 mg PO DAILY [facility] Stop: 07/13/25 08:59 Last Admin: 07/15/24 08:33 Dose: 400 mg Eszopiclone 3 Mg (Tablet) 3 mg PO QHS [facility] Stop: 07/12/25 21:59 Last Admin: 07/15/24 22:09 Dose: 3 mg Pom (Eszopiclone 3 (Mg Tablet)) 3 mg PO QHS [facility] Stop: 07/20/25 21:59 Oxycodone/Acetaminophen (Oxycodone/Acetaminophen 5-325 Mg Tablet) 1 tab PO Q4H PRN PRN Reason: Pain Scale 4 - 7 Last Admin: 07/13/24 22:05 Dose: 1 tab Polyethylene Glycol (Polyethylene Glycol 3350 17 Gm Powd.Pack) 17 gm PO BID [facility] Stop: 07/14/25 10:04 Last Admin: 07/15/24 20:11 Dose: Not Given Potassium Chloride (Potassium Chloride Er 20 Meq Tab.Er.Prt) 20 meq PO DAILY [facility] Stop: 07/13/25 08:59 Last Admin: 07/15/24 08:33 Dose: 20 meq Sennosides (Sennosides Syrup 8.8 Mg/5 Ml Udc) 8.8 mg PO BID [facility] Stop: 07/14/25 10:04 Last Admin: 07/15/24 [...] is just weak and is upper thighs. snf that he has been to on and off therapy only happens once a day and it sounds like he sits in a chair or bed for the rest of thetime. This is according to his family member. Documented By: Frankie Reynolds MD 07/16/24918 Signed By: <Electronically signed by MD Frankie Reynolds> 07/16/24927 [facility] Work Phone: [phone] Progress note Author Mario Jordan [facility] Date/TimeMay 2024 1:39[place] [address] Hospitalist Progress Note Signed Patient: Tavo Wallis Jr MR# : [id number] : 1940 Acct:[id number] Age/Sex: 84 / M Adm Date: 5 Loc: Room: [address] [place] [address] Type: ADM IN Attending Dr: Mario Jordan [...] gout, cardiomyopathy, history of CHF, was sent [facility] ED from [facility] for chief concern for hematuria. Patient [...] Daily weights - Heart healthy diet - PT/OT-assisted facility - Full code SCD for DVT prophylaxis Documented By: Mario Jordan MD 07/15/241334 Signed By: <Electronically signed by Mario Jordan MD> 07/15/241338 [facility] Work Phone: 1([phone] 605-718905-11-2025 Consult note Author Frankie Reynolds [facility] Date/TimeMay 2024 9:59[place] [id number] Infect. Disease Consult Note Signed Patient: Tavo Wallis Jr MR# : [id number] : 1940 Acct:[id number] Age/Sex: 84 / M Adm Date: 5 Loc: Room: [address] [place] [address] Type: ADM IN Attending Dr: Mario Jordan [...] negative unless noted below or in HPI [facility] Medical History Insomnia Hypothyroidism Hypertension Constipation BPH [...] drinks a day >6 Social History Comments: [facility] rehab Allergies and Medications Allergies [...] 50 mls @ 12.5 mls/hr IV Q12H [facility] Last Admin: 07/15/24 08:34 Dose: 12.5 mls/hr Levothyroxine Sodium (Levothyroxine 150 Mcg Tablet) 150 mcg PO DAILY.0630 [facility] Stop: 07/13/25 06:29 Last Admin: 07/15/24 08:33 Dose: 150 mcg Magnesium Oxide (Magnesium Oxide 400 Mg Tablet) 400 mg PO DAILY [facility] Stop: 07/13/25 08:59 Last Admin: 07/15/24 08:33 Dose: 400 mg Eszopiclone 3 Mg (Tablet) 3 mg PO QHS [facility] Stop: 07/12/25 21:59 Last Admin: 07/14/24 23:17 Dose: Not Given Pom (Eszopiclone 3 (Mg Tablet)) 3 mg PO QHS [facility] Stop: 07/20/25 21:59 Oxycodone/Acetaminophen (Oxycodone/Acetaminophen 5-325 Mg Tablet) 1 tab PO Q4H PRN PRN Reason: Pain Scale 4 - 7 Last Admin: 07/13/24 22:05 Dose: 1 tab Polyethylene Glycol (Polyethylene Glycol 3350 17 Gm Powd.Pack) 17 gm PO BID [facility] Stop: 07/14/25 10:04 Last Admin: 07/15/24 [...] @ 12.5 mls/hr IV Q12H [facility] Rx#: [id number] Vancomycin 1.25 gm In Dextrose 275 / 550 5 % in Water 250 ml @ 183.333 mls/hr IV Q12H [facility] Rx#:[id number] Oral 860 / 1110 0 / 0 [...] by MD Frankie Reynolds> 07/15/24 0959 [facility] Work Phone: 1(632) 356-549305-10-2025 Progress note Author Mario Jordan [facility] Date/TimeMay 2024 12:47[place] [address] Hospitalist Progress Note Signed Patient: Tavo Wallis Jr MR# : [id number] : 1940 Acct:[id number] Age/Sex: 83 / M Adm Date: 5 Loc: Room: [address] [place] [address] Type: ADM IN Attending Dr: Mario Jordan [...] gout, cardiomyopathy, history of CHF, was sent [facility] ED from [facility] for chief concern for hematuria. Patient [...] Daily weights - Heart healthy diet - PT/OT-assisted facility - General Surgery consulted for abscess in the right mid leg lateral aspect - Full code SCD for DVT prophylaxis Documented By: Mario Jordan MD 07/14/24 1234 Signed By: <Electronically signed by Mario Jordan MD> 07/14/24 1248 [facility] Work Phone: 1(761) 116-406605-10-2025 Consult note Author Bryce Villeda [facility] Date/TimeMay 2024 12:21pm[place] [address] General Surgery Consult Note Signed Patient: Tavo Wallis Jr MR# : [id number] : 1940 Acct:[id number] Age/Sex: 83 / M Adm Date: 5 Loc: Room: [address] [place] [address] Type: ADM IN Attending Dr: Mario Jordan MD Copies to: MD Sandip Fajardo DO~ History of Present Illness Date of consult: 07/14/2024 Requesting/Attending Provider: Mario Jordan MD History of present illness: Tavo is an 83-year-old male with multiple medical conditions including atrialfibrillation, hypothyroid, hypertension, CHF, who presented to the ER from [facility] for hematuria. The patient was admitted [...] trauma that may have caused the injury. [facility] Medical History Insomnia Hypothyroidism Hypertension Constipation BPH [...] drinks a day >6 Social History Comments: [facility] rehab Allergies & Medications Medications [...] 500 Mg Tablet) 500 mg PO TID [facility] Stop: 07/12/25 21:59 Last Admin: 07/14/24 [...] 50 mls @ 12.5 mls/hr IV Q12H [facility] Last Admin: 07/14/24 09:05 Dose: 12.5 mls/hr Levothyroxine Sodium (Levothyroxine 150 Mcg Tablet) 150 mcg PO DAILY.629 [facility] Stop: 07/13/25 06:29 Last Admin: 07/14/24 06:43 Dose: 150 mcg Magnesium Oxide (Magnesium Oxide 400 Mg Tablet) 400 mg PO DAILY [facility] Stop: 07/13/25 08:59 Last Admin: 07/14/24 09:05 Dose: 400 mg Eszopiclone 3 Mg (Tablet) 3 mg PO QHS [facility] Stop: 07/12/25 21:59 Last Admin: 07/13/24 21:44 Dose: Not Given Pom (Eszopiclone 3 (Mg Tablet)) 3 mg PO QHS [facility] Stop: 07/20/25 21:59 Oxycodone/Acetaminophen (Oxycodone/Acetaminophen 5-325 Mg Tablet) 1 tab PO Q4H PRN PRN Reason: Pain Scale 4 - 7 Last Admin: 07/13/24 22:05 Dose: 1 tab Polyethylene Glycol (Polyethylene Glycol 3350 17 Gm Powd.Pack) 17 gm PO BID [facility] Stop: 07/14/25 10:04 Potassium Chloride (Potassium Chloride Er 20 Meq Tab.Er.Prt) 20 meq PO DAILY [facility] Stop: 07/13/25 08:59 Last Admin: 07/14/24 09:05 Dose: 20 meq Sennosides (Sennosides Syrup 8.8 Mg/5 Ml Udc) 8.8 mg PO BID [facility] Stop: 07/14/25 10:04 Sodium Chloride (Sodium [...] Neut % (Auto) 84.9, Lymph %(Auto) 7.4, Sutton % (Auto) 6.1, Eos % (Auto) 1.4, Baso % (Auto) 0.2, Nucleat RBC Rel Count 0.1, Neut# (Auto) 13.3 H, Lymph # (Auto) 1.2, Sutton # (Auto) 1.0 H, Eos # (Auto) [...] Neut % (Auto) 90.2, Lymph %(Auto) 2.7, Sutton % (Auto) 6.8, Eos % (Auto) 0.1, Baso % (Auto) 0.2, Nucleat RBC Rel Count 0.1, Neut# (Auto) 24.1 H, Lymph # (Auto) 0.7 L, Sutton # (Auto) 1.8 H, Eos # (Auto) [...] % (Auto) N/A, Lymph % (Auto) N/A, Sutton % (Auto) N/A, Eos % (Auto) N/A, Baso % (Auto) N/A, Nucleat RBC Rel Count N/A, Neut # (Auto) N/A, Lymph # (Auto) N/A, Sutton # (Auto) N/A, Eos # (Auto) N/A, [...] Turbid A, Urine pH , Ur Specific Weatherby 1.020,Urine Protein , Urine Glucose (UA) , [...] % (Auto) 93.8, Lymph % (Auto) 4.2, Sutton % (Auto) 0.4, Eos % (Auto) 1.3, Baso % (Auto) 0.3, Nucleat RBC Rel Count 0.2, Neut # (Auto)6.3, Lymph # (Auto) 0.3 L, Sutton # (Auto) 0.0, Eos # (Auto) 0.1, [...] by Bryce Villeda DO> 07/14/24 1221 [facility] Work Phone: 1([phone]) 803-114605-10-2025 Radiology [facility] Work Phone: 1([phone] Consult note Author Bayron farnsworth [facility]Note Date/TimeMay 2024 2:49[place] [address] Urology Consult Note Signed Patient: Tavo Wallis Jr MR# : [id number] : 1940 Acct:[id number] Age/Sex: 83 / M Adm Date: 5 Loc: Room: [address] [place] [address] Type: ADM IN Attending Dr: Mario Jordan [...] done and negative except as per HPI [facility] Medical History Insomnia Hypothyroidism Hypertension Constipation BPH [...] drinks a day >6 Social History Comments: [facility] rehab Meds Medications and Allergies [...] in place with clear yellow urine 22 [place] three-way Skin: Warm and dry Extremities: No [...] Neut % (Auto) 90.2, Lymph %(Auto) 2.7, Sutton % (Auto) 6.8, Eos % (Auto) 0.1, Baso % (Auto) 0.2, Nucleat RBC Rel Count 0.1, Neut# (Auto) 24.1 H, Lymph # (Auto) 0.7 L, Sutton # (Auto) 1.8 H, Eos # (Auto) [...] % (Auto) N/A, Lymph % (Auto) N/A, Sutton % (Auto) N/A, Eos % (Auto) N/A, Baso % (Auto) N/A, Nucleat RBC Rel Count N/A, Neut # (Auto) N/A, Lymph # (Auto) N/A, Sutton # (Auto) N/A, Eos # (Auto) N/A, [...] Turbid A, Urine pH , Ur Specific Weatherby 1.020,Urine Protein , Urine Glucose (UA) , [...] % (Auto) 93.8, Lymph % (Auto) 4.2, Sutton % (Auto) 0.4, Eos % (Auto) 1.3, Baso % (Auto) 0.3, Nucleat RBC Rel Count 0.2, Neut # (Auto)6.3, Lymph # (Auto) 0.3 L, Sutton # (Auto) 0.0, Eos # (Auto) 0.1, [...] by Bayron Tom MD> 07/13/24 1449 [facility] Work Phone: 1(264) [phone] Progress note Author Mario Jordan [facility] Date/TimeMay 2024 2:38[place] [address] Hospitalist Progress Note Signed Patient: Tavo Wallis Jr MR# : [id number] : 1940 Acct:[id number] Age/Sex: 83 / M Adm Date: 5 Loc: Room: [address] [place] [address] Type: ADM IN Attending Dr: Mario Jordan [...] gout, cardiomyopathy, history of CHF, was sent [facility] ED from [facility] for chief concern for hematuria. Patient [...] Daily weights - Heart healthy diet - PT/OT-assisted facility - Full code SCD for DVT prophylaxis Documented By: Mario Jordan MD 07/13/24 1437 Signed By: <Electronically signed by Mario Jordan MD> 07/13/24 1432 [facility] Work Phone: 1(587) 707-289405-09-2025 [facility] Work Phone: 1(782) [phone] History and physical note Author Mario Jordan [facility] Date/TimeMay 2024 6:49pm[place] [id number] Hospitalist H&P Signed Patient: Tavo Wallis Jr MR# : [id number] : 1940 Acct:[id number] Age/Sex: 83 / M Adm Date: 5 Loc: Room: [address] [place] [address] Type: ADM IN Attending Dr: Mario Jordan MD Copies to: MD Sandip Fajardo DO~ HPI DATE OF EXAMINATION: 07/12/24 CHIEF COMPLAINT: Hematuria HISTORY OF PRESENT ILLNESS: This is a 83-year-old male with significant past medical history of A-fib, hypothyroidism, hypertension, BPH on chronic Chou since March 2024 exchangingevery month, hyperlipidemia, gout, cardiomyopathy, history of CHF, was sent [facility] ED from [facility] for chief concern for hematuria. Patient [...] negative unless noted below or in HPI [facility] Medical History Insomnia Hypothyroidism Hypertension Constipation BPH [...] % (Auto) 4.2 % (.) 07/12/24 15:00 Sutton % (Auto) 0.4 % (.) 07/12/24 15:00 Eos % (Auto) 1.3 % (.) 07/12/24 15:00 Baso % (Auto) 0.3 % (.) 07/12/24 15:00 Nucleat RBC Rel Count 0.2 /100 WBC (0-0.5) 07/12/24 15:00 Neut # (Auto) 6.3 x10E3/uL (1.8-7.7) 07/12/24 15:00 Lymph # (Auto) 0.3 x10E3/uL (1.00-4.8) L 07/12/24 15:00 Sutton # (Auto) 0.0 x10E3/uL (0.0-0.8) 07/12/24 15:00 [...] Urine pH (5.0-9.0) 07/12/24 16:19 Ur Specific Weatherby 1.020 (1.001-1.030) 07/12/24 16:19 Urine Protein mg/dL [...] gout, cardiomyopathy, history of CHF, was sent [facility] ED from [facility] for chief concern for hematuria. Patient [...] <Electronically signed by Mario Jordan MD> 07/12/[address] [facility] Work Phone: 1(496) 390-233305-08-2025 Evaluation note* Diagnosis Onset Date Resolution Status Admit Date Atrial fibrillation acuteMay 2024 5:00pmBPH (benign prostatic hyperplasia)acuteMay 2024 5:00pmCHF exacerbationacuteMay 2024 5:00pmHematuriaacuteMay 2024 5:00pmHypertensionacuteMay 2024 5:00pmHypothyroidismacuteMay 2024 5:00pmHypoxiaacuteMay 2024 5:00pmSepsisacuteMay 2024 5:00pm [facility] Work Phone: 1([phone]) [phone] Evaluation note* Diagnosis Onset Date Resolution Status Admit Date Abscess acuteMay 2024 5:00pmAbscess of left legacuteMay 2024 5:00pmAtrial fibrillationacuteMay 2024 5:00pmBacteremia due to EnterococcusacuteMay 2024 5:00pmBacteremia due to PseudomonasacuteMay 2024 5:00pmBPH (benign prostatic hyperplasia)acuteMay 2024 5:00pmCHF exacerbationacuteMay 2024 5:00pmComplicated UTI (urinary tract infection)acuteMay 2024 5:00pm HematuriaacuteMay 2024 5:00pmHypertensionacuteMay 2024 5:00pm HypothyroidismacuteMay 2024 5:00pmHypoxiaacuteMay 2024 5:00pmSepsis acuteMay 2024 5:00pm [facility] Work Phone: 1(464) 288-178305-08-2025 Evaluation note* Diagnosis Onset Date Resolution Status Admit Date Abscess resolvedMay 2024 5:00pmAbscess of left legresolvedMay 2024 5:00pm Atrial fibrillationresolvedMay 2024 5:00pmBacteremia due to Enterococcus resolvedMay 2024 5:00pmBacteremia due to PseudomonasresolvedMay 2024 5:00pmBPH (benign prostatic hyperplasia)2024 5:00pmCHF exacerbationresolvedMay 2024 5:00pmComplicated UTI (urinary tract infection)resolvedJuly 12, 2024 5:00pmHematuriaresolvedMay 2024 5:00pm HypertensionresolvedMay 2024 5:00pmHypothyroidismresolvedMay 2024 5:00pmHypoxiaresolvedMay 2024 5:00pmSepsisresolvedMay 2024 5:00pm [facility] Work Phone: 1([phone]) 447-701605-08-2025 Evaluation note* Diagnosis Onset Date Resolution Status [...] 2024 3:12pmSevere back painacuteJuly 2024 3:12pm [facility] Work Phone: 1([phone]) 456-483005-08-2025 Evaluation note* Diagnosis Onset Date Resolution Status [...] 2024 3:12pmCatheter-associated urinary tract infectionacuteJuly 2024 1:51pm [facility] Work Phone: 1([phone]) 481-499405-08-2025 Evaluation note* Diagnosis Onset Date Resolution Status [...] 9:13pmFallacuteAugust 2024 9:13pmIntracranial hemorrhageacuteAugust 2024 9:13pm [facility] Work Phone: 1([phone]) 724-669805-08-2025 Evaluation note* Diagnosis Onset Date Resolution Status [...] acuteAugust 2024 7:05amIntracranial hemorrhageacuteAugust 2024 7:05am [facility] Work Phone: [phone]) [phone] NotePatient Education Urology Hypospadias, Pediatric Hypospadias is [...] Follow these instructions at home: ??? Give jbet-qab-wzyzpao and prescription medicines only as told by [...] Reviewed: 06/23/2020 Monisha Patient Education ? 2023 Aras Radha.[facility] 07-11-2024 NoteThis is a Telehealth Appointment *This visit was conducted via Telehealth with real time interactive synchronized audio and video communication. The patient provided written consent for treatment. The patient understands their rights, the HIPAA risks and that they will be charged accordingly for the services rendered. The patient was seen via telemedicine while they were at: _[place] This telemedicinevisit was conducted due to: transport_ [...] February 24, extended through May 17, 2024 [facility] for UTI, doxycycline at present [...] bivalent 12/24/2021 Recorded Comments (more content not included)...[facility]04-22-2025 NoteThis is a Telehealth Appointment *This visit was conducted via Telehealth with real time interactive synchronized audio and video communication. The patient provided written consent for treatment. The patient understands their rights, the HIPAA risks and that they will be charged accordingly for the services rendered. The patient was seen via telemedicine while they were at: _[place] This telemedicinevisit was conducted due to: transport_ [...] Substance Abuse Denies All (more content not included)...[facility]03-29-2025 Note Patient Education Urology Acute Urinary [...] these instructions at home: Medicines ??? Take pift-arq-zxyfxju and prescription medicines only as told by [...] Reviewed: 11/12/2020 Monisha Patient Education ? 2023 [employer].[facility] 05-10-2024 NoteThis is a Telehealth Appointment *This visit was conducted via Telehealth with real time interactive synchronized audio and video communication. The patient provided written consent for treatment. The patient understands their rights, the HIPAA risks and that they will be charged accordingly for the services rendered. The patient was seen via telemedicine while they were at: jail This telemedicine visit was conducted due to: [...] the andre [1] he had surgery at [facility] in [place].Postoperatively gained a lot of fluid weight. Also has catheter for urinary retention. Has chronic lymphedema uses pumps at home. Admitted to [place] had MRI that showed fluid collection. History ofA-fib. Surgery was not done there due to need for cardiology services. Transferred to [facility] where he connected with cardiology. Actually [...] spent on se (more content not included)... [facility]02-20-2025 History of Present illness Narrative* Partha Gabriel, DPM - 04/26/2024 4:32 PM EST Tavo Byrd Jadynroel : 1940 Snf: [facility] PCP:dr. aguirre Date last [...] right foot Localized edema Decreased pedal pulses longterm (current) use of anticoagulants Partha Gabriel DPM [facility] Instructions* Patient Instructions* Partha Gabriel DPM - 04/26/2024 4:32 PM EST Pt not to attempt self care due to high risk. [facility] NoteAdmission Information Patient: Tavo Wallis : 1940 Date of Admission: 04/15/2024 03:52:56 Date of Discharge: 04/20/24 Code Status: Full ResuscitationFull Resuscitation PCP: Tavo Mcintyre DO Consult: Celena HARGROVE, Frankie Hernandez; Moises TIDWELL, Crystal Byrd; Aletha TIDWELL, Tye Barrera; Lalo LECHUGA, Gustabo Sharpe; [facility], [facility] Course : This is a 83 Years old Male with past medical history of heart failure with reduced ejection fraction, permanent A-fib, chronic kidney disease stage III AAA, hypothyroidism, chronic back pain with recent surgery about 2 months ago who was transferred from [facility] for wound dehiscence. The reason why patient was transferred was because of his extensive cardiac history and anesthesia at [facility] did not feel comfortable putting [...] I reviewed other provider notes. Discharge Location: Alf Facility Discharge Time Spent with Patient: over [...] focal deficits. Psychiatric: Calm (more content not included)...[facility] 04-17-2024 NoteOperative Report DATE OF PROCEDURE: 04/17/2024 PREOPERATIVE DIAGNOSES: 1. 8-weeks status post lumbar decompression and noninstrumented fusion with postoperative fluid collection and wound dehiscence POSTOPERATIVE DIAGNOSES: 1. 8-weeks status post lumbar decompression and noninstrumented fusion with postoperative fluid collection and wound dehiscence OPERATION PERFORMED: 1. Lumbar I&D with wound closure SURGEON: Randi Burris MD SLAT BASKET TOP MAKER: ALEXANDREA Corcoran PA-C assisted throughout the procedure [...] signed by Randi Burris MD 04/17/24 15:05 [facility]02-09-2025 NoteChief Complaint Wound dehiscence Reason for Consultation Lumbar wound dehiscence History of Present Illness The patient is a 83-year-old male who is status post lumbar decompression and noninstrumented fusion done 02/20/25 at [facility] with Dr. Man. He was admitted to [place] on Tuesday from office for lumbar I&D due to wound drainage and postoperative fluid collection on MRI. Anesthesia cancelled surgery due to LE swelling, elevated BNP and recent Echo in Feb, no cardiology on staff. He was transferred to [facility] yesterday for surgical clearance. c/o [...] [facility] TIDWELL, Randi Mesa 04/17/2024 14:49 [facility] 04-15-2024 NotePatient seen and examined in AM. Chart reviewed and discussed plan of care with patient and his daughter at bedside. Notably patient had lumbar spine surgery done with Dr Burris, due to concerns for wound dehiscence he was transferred to inpatient hospital for debridement. Patient was transferredhere from [facility] as there was some concern for decompensated CHF, no cardiology service was present at [place] patient states he follows with cardiology?[facility] for appropriate clearance and restratification prior to orthopedic surgery. Near [place] in [place]. He did receive appropriate cardiac clearance prior [...] signed by YordanJuan camara DO 04/15/24 11:09 [facility]02-09-2025 NoteAssessment/Plan Brief Hospital Course Summary: This [...] in our hospital Dr. [place]. Through [place] connect. EKG performed patient has a known [...] presented as a transfer from [facility] for cardiac clearance the patient [...] time the patient was fluid overloaded at [place] currently he is not in our hospital the patient states that his left lower extremity is chronically erythematous which has beenongoing for the past several years likely from venous congestion. The patient has ejection gmdicemg02% currently he is not on room air. [...] by Moises TIDWELL, Crystal Byrd 04/15/24 06:21 [facility] 03-14-2024 Progress note Author Michele Knight [facility] Date/TimeJanuary 2024 4:[place] [address] Hospitalist Progress Note Signed Patient: Tavo Wallis Jr MR# : [id number] : 1940 Acct:[id number] Age/Sex: 83 / M Adm Date: 5 Loc: Room: [address] [place] [address] Type: ADM IN Attending Dr: Michele Knight [...] lumbar decompression surgery 2 weeks ago in [facility]. No complications otherwise. PT OT and [...] 03/14/24 [facility]3 [facility] Work Phone: 1([phone]) [phone] [place] [address] Hospitalist Progress Note Signed Patient: Tavo Wallis Jr MR# : [id number] : 1940 Acct:[id number] Age/Sex: 83 / M Adm Date: 5 Loc: 3T Room: [address] [place] [address] Type: ADM IN Attending Dr: Michele Knight [...] lumbar decompression surgery 2 weeks ago in [facility]. No complications otherwise. PT OT and [...] questions answered. In agreement with theabove plan. Mcihele Knight MD Internal Medicine Hospitalist Attending Physician Documented By: Michele Knight MD 03/14/24 0852 Signed By: 03/14/24 1613 [facility]01-08-2025 Hospital Discharge instructions Additional Instructions SNF [...] -Care to be managed by SNF providers.[facility] Work Phone: 1([phone]) 166-531201-07-2025 Progress note Author Michele Knight [facility] Date/TimeJanuary 2024 6:00pm[place] [address] Hospitalist Progress Note Signed Patient: Tavo Wallis Jr MR# : [id number] : 1940 Acct:[id number] Age/Sex: 83 / M Adm Date: 5 Loc: 3T Room: 6I3962-9 Type: ADM IN Attending Dr: Michele Knight [...] lumbar decompression surgery 2 weeks ago in [facility]. No complications otherwise. PT OT and [...] by Michele Knight MD> 03/13/24 1800 [facility] Work Phone: [phone]) 888-185901-07-2025 [place] [address] Hospitalist Progress Note Signed Patient: Tavo Wallis Jr MR# : [id number] : 1940 Acct:[id number] Age/Sex: 83 / M Adm Date: 5 Loc: 3T Room: [address] [place] [address] Type: ADM IN Attending Dr: Michele Knight [...] lumbar decompression surgery 2 weeks ago in [facility]. No complications otherwise. PT OT and [...] MD 03/13/24 1430 Signed By: 03/13/24 1800 [facility]01-06-2025 Progress note Author Michele Knight [facility] Date/TimeJanuary 2024 5:12[place] [address] Hospitalist Progress Note Signed Patient: Tavo Wallis Jr MR# : [id number] : 1940 Acct:[id number] Age/Sex: 83 / M Adm Date: 5 Loc: 3T Room: [address] [place] [address] Type: ADM IN Attending Dr: Michele Knight [...] lumbar decompression surgery 2 weeks ago in [facility]. No complications otherwise. PT OT and [...] <Electronically signed by Michele Knight MD> 03/12/24 8087 [facility] Work Phone: 1(354) 501-112101-06-2025 [place] [address] Hospitalist Progress Note Signed Patient: Tavo Wallis Jr MR# : [id number] : 1940 Acct:[id number] Age/Sex: 83 / M Adm Date: 5 Loc: 3T Room: [address] [place] [address] Type: ADM IN Attending Dr: Michele Knight [...] lumbar decompression surgery 2 weeks ago in [facility]. No complications otherwise. PT OT and [...] Knight MD 03/12/241705 Signed By: 03/12/24 1712 [facility]01-05-2025 Progress note Author Mitchell Reyes [facility] Date/TimeJanuary 2024 12:33pm [place] [address] Hospitalist Progress Note Signed Patient: Tavo Wallis Jr MR# : [id number] : 1940 Acct:[id number] Age/Sex: 83 / M Adm Date: 5 Loc: Room: [address] [place] [address] Type: ADM IN Attending Dr: Mitchell Reyes [...] lumbar decompression surgery 2 weeks ago in [facility]. No complications otherwise. PT OT and [...] Tablet PO 03/11/25 06:29 Not Given DAILY@0630 [facility] Eszopiclone 3 Mg 3 mg 03/10/24 [...] by Mitchell Reyes MD> 03/11/24 1233 [facility] Work Phone: 1(794) 215-582101-05-2025 [place] [address] Hospitalist Progress Note Signed Patient: Tavo Wallis Jr MR# : [id number] : 1940 Acct:[id number] Age/Sex: 83 / M Adm Date: 5 Loc: Room: [address] [place] [address] Type: ADM IN Attending Dr: Mitchell Reyes [...] lumbar decompression surgery 2 weeks ago in [facility]. No complications otherwise. PT OT and [...] Tablet PO 03/11/25 06:29 Not Given DAILY@0630 [facility] Eszopiclone 3 Mg 3 mg 03/10/24 [...] MD 03/11/24 1231 Signed By: 03/11/24 1233 [facility]01-04-2025 History and physical note Author Mitchell Reyes [facility] Date/TimeJanuary 2024 3:[place] [id number] Hospitalist H&P Signed Patient: Tavo Wallis Jr MR# : [id number] : 1940 Acct:[id number] Age/Sex: 83 / M Adm Date: 5 Loc: 3T Room: [address] [place] [address] Type: ADM IN Attending Dr: Mitchell Reyes MD Copies to: MD Opal Peters,DO~ HPI DATE OF EXAMINATION: 03/10/24 HISTORY OF PRESENT ILLNESS: Patient is a 89-year-old male, who was well until approximately 2 weeks ago, when he underwent spinal decompression surgery in [facility] about 2 weeks prior to [...] pressure measured ultrasonographically is fairly normal at [id number] cc water. LV contractility is slightly decreased. [...] Dyslipidemia Gout Sleep apnea Obesity class I [facility] Medical History Insomnia Hypothyroidism Hypertension Constipation BPH [...] % (Auto) 11.9 % (.) 03/10/24 10:00 Sutton % (Auto) 9.2 % (.) 03/10/24 10:00 Eos % (Auto) 5.9 % (.) 03/10/24 10:00 Baso % (Auto) 1.4 % (.) 03/10/24 10:00 Nucleat RBC Rel Count 0.0 /100 WBC (0-0.5) 03/10/24 10:00 Neut # (Auto) 6.1 x10E3/uL (1.8-7.7) 03/10/24 10:00 Lymph # (Auto) 1.0 x10E3/uL (1.00-4.8) 03/10/24 10:00 Sutton # (Auto) 0.8 x10E3/uL (0.0-0.8) 03/10/24 10:00 [...] signed by Mitchell Reyes MD> 03/10/[address] [facility] Work Phone: 1(321) 666-121901-04-2025 [place] [address] Hospitalist H&P Signed Patient: Tavo Wallis Jr MR# : [id number] : 1940 Acct:[id number] Age/Sex: 83 / M Adm Date: 5 Loc: Room: [address] [place] [address] Type: ADM IN Attending Dr: Mitchell Reyes MD Copies to: MD Opal Peters,DO~ HPI DATE OF EXAMINATION: 03/10/24 HISTORY OF PRESENT ILLNESS: Patient is a 89-year-old male, who was well until approximately 2 weeks ago, when he underwent spinal decompression surgery in [facility] about 2 weeks prior to [...] pressure measured ultrasonographically is fairly normal at [id number] cc water. LV contractility is slightly decreased. [...] Dyslipidemia Gout Sleep apnea Obesity class I [facility] Medical History Insomnia Hypothyroidism Hypertension Constipation BPH [...] % (Auto) 11.9 % (.) 03/10/24 10:00 Sutton % (Auto) 9.2 % (.) 03/10/24 10:00 Eos % (Auto) 5.9 % (.) 03/10/24 10:00 Baso % (Auto) 1.4 % (.) 03/10/24 10:00 Nucleat RBC Rel Count 0.0 /100 WBC (0-0.5) 03/10/24 10:00 Neut # (Auto) 6.1 x10E3/uL (1.8-7.7) 03/10/24 10:00 Lymph # (Auto) 1.0 x10E3/uL (1.00-4.8) 03/10/24 10:00 Sutton # (Auto) 0.8 x10E3/uL (0.0-0.8) 03/10/24 10:00 [...] MD 03/10/24 1349 Signed By: 03/10/24 1549 [facility]01-04-2025 Evaluation note* Diagnosis Onset Date Resolution Status Admit Date LIS (acute kidney injury) acuteJanuary 2024 11:26amCOVID-19acuteJanuary 2024 11:26amFatigueacute Eliza 2024 11:26am [facility] Work Phone: 1(454) 278-679412-23-2024 History of Present illness Narrative* Randa King [...] a supine position. COVID-19 & Influenza Combo [[id number]] Collected: 02/25/24 1109 Updated: 02/25/24 1153 Specimen Source: Nasopharyngeal Swab SARS-CoV-2 RNA, RT PCR NOT DETECTED Comment: Influenza A NOT DETECTED Influenza B NOT DETECTED Lactic Acid, Sepsis 1.0 XR CHEST PORTABLE [[id number]] Collected: 02/24/242041 Updated: 02/24/242142 Narrative: 1 view chest x-ray Comparison: None Findings: Zrvamlfz-dm-lusmvx cardiomegaly. Small left and trace right pleural effusions. Cephalization pulmonary vasculature with diffusely increased interstitial markings and diffuse hazy alveolar opacity. No pneumothorax. Impression: 1. Hnmmdjtp-id-otxtzf cardiomegaly with pulmonary edema and pleural effusions. 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 Ballistic Expert Goals Time Frame for Detention Goals : N/A due to ELOS Following [...] a supine position. COVID-19 & Influenza Combo [[id number]] Collected: 02/25/24 1109 Updated: 02/25/24 1153 Specimen Source: Nasopharyngeal Swab SARS-CoV-2 RNA, RT PCR NOT DETECTED Comment: Influenza A NOT DETECTED Influenza B NOT DETECTED Lactic Acid, Sepsis 1.0 XR CHEST PORTABLE [[id number]] Collected: 02/24/242041 Updated: 02/24/242142 Narrative: 1 view chest x-ray Comparison: None Findings: Lqblwccb-vh-zksldi cardiomegaly. Small left and trace right pleural effusions. Cephalization pulmonary vasculature with diffusely increased interstitial markings and diffuse hazy alveolar opacity. No pneumothorax. Impression: 1. Suufthkb-ym-xyvbsn cardiomegaly with pulmonary edema and pleural effusions. [...] Steele OTA - 02/26/2024 1:58 PM EST [facility] ICU STEPDOWN TELEMETRY 4K Occupational Therapy Daily Note Discharge Recommendations: Continue to assess pending progress, ECF with OT, and Patient would benefit from continued OT at discharge Equipment Recommendations: No continue to monitor Time In: 1316 Time Out: 1357 Timed Code Treatment Minutes: 41 Minutes Minutes: 41 Date: 02/26/2024 Patient Name: Tavo Walils, Gender: male Room: [address] [place] [address] : 1940 (83 y.o.) Referring Practitioner: Randi [...] in the past year?: Yes (~5) Active Rabble Furnace Tender: Yes (Daughter able to transport until cleared to drive again.) Mode of Transportation: Truck Additional Comments: 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 Detention Goals Time Frame for Ballistic Expert Goals : None due to ELOS Following session, patient left in safe position with all fall risk precautions in place. 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 Functional Outcome Measures: [facility] (6 CLICK) BASIC MOBILITY AM-[facility] Inpatient Mobility Raw Score : 13 AM-[facility] Inpatient T-Scale Score : 36.74 Modified [place] Scale: Not Applicable ASSESSMENT: Assessment: fair progression, [...] Supervision in orderto assist with home entry. Detention Goals Time Frame for Detention Goals : N/A due to ELOS Following [...] examined independently by me. Agree with Physician project management advisor note above. Discussed w/ patient's daughter. Continue [...] a supine position. COVID-19 & Influenza Combo [[id number]] Collected: 02/25/24 1109 Updated: 02/25/24 1153 Specimen Source: Nasopharyngeal Swab SARS-CoV-2 RNA, RT PCR NOT DETECTED Comment: Influenza A NOT DETECTED Influenza B NOT DETECTED Lactic Acid, Sepsis 1.0 XR CHEST PORTABLE [[id number]] Collected: 02/24/242041 Updated: 02/24/242142 Narrative: 1 view chest x-ray Comparison: None Findings: Hryryaey-gv-rbibti cardiomegaly. Small left and trace right pleural effusions. Cephalization pulmonary vasculature with diffusely increased interstitial markings and diffuse hazy alveolar opacity. No pneumothorax. Impression: 1. Sdtrgasy-ut-crelng cardiomegaly with pulmonary edema and pleural effusions. [...] Russell SLP - 02/25/2024 1:24 PM EST [facility] SPEECH THERAPY STRZ ICU STEPDOWN TELEMETRY 4K Clinical Swallow Evaluation + Dysphagia Therapy Discharge Recommendations: Home with Home Exercise Program DIET ORDER RECOMMENDATIONS AFTER EVALUATION: Regular, thin liquids Strategies: Full Upright Position, Small Bite/Sip, Pulmonary Monitoring, Alternate Solids and Liquids, Limit Distractions, and Monitor for Fatigue SENIOR HADOOP DEVELOPER Individual Minutes Time In: 930 Time Out: 947 Minutes: 17 Timed Code Treatment Minutes: 0 Minutes CSE: 9 minutes Dysphagia Therapy: 8 minutes Date: 02/25/2024 Patient Name: Tavo Wallis CSN: [id number] : 1940 (83 y.o.) Gender: male Referring Physician: Randa King MD Diagnosis: Lumbar stenosis with neurogenic claudication History of Present Illness/Injury: Patient admitted to [facility] for above dx. Per chart review, [...] Hyperlipidemia Hypertension Thyroid disease SUBJECTIVE: Spoke with AMRK Hinojosa for approval of CSE. Upon arrival, [...] Evaluation of Education: Verbalizes understanding PLAN: Skilled SENIOR HADOOP DEVELOPER intervention on acute care 1-3 x per [...] assist with mobility and overall pulmonary health PENITENTIARY GOALS: No LTGs established due to short ELOS. Lula Russell M.A., [facility]-SENIOR HADOOP DEVELOPER [id number] * Gustabo May PA - 02/25/2024 8:05 [...] Solorio, OT - 02/24/2024 2:07 PM EST [facility] ICU STEPDOWN TELEMETRY 4K Occupational Therapy Daily Note Discharge Recommendations: Subacute/assisted facility Equipment Recommendations: No continue to monitor Time In: 830 Time Out: 908 Timed Code Treatment Minutes: 38 Minutes Minutes: 38 Date: 02/24/2024 Patient Name: Tavo Wallis, Gender: male Room: [address] [place] [address] : 1940 (83 y.o.) Referring Practitioner: Randi [...] in the past year?: Yes (~5) Active Rabble Furnace Tender: Yes (Daughter able to transport until cleared to drive again.) Mode of Transportation: Truck 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 Functional Outcome Measures: [facility] (6 CLICK) BASIC MOBILITY [facility] Inpatient Mobility Raw Score : 14 [facility] Inpatient T-Scale Score : 38.1 Modified Flaco [...] Supervision in orderto assist with home entry. Detention Goals Time Frame for Detention Goals : N/A due to ELOS Following [...] EST Spiritual Health History and Assessment/Progress Note [facility] Loneliness/Social Isolation, , , Name: Tavo Wallis Age: 83 y.o. Sex: male Language: Libyan Yarsani: None Lumbar stenosis with neurogenic claudication Date: 02/23/2024 Total Time Calculated: (P) 8 min [facility] Referral/Consult From: Nurse [...] Therapy just started working with patient. Will [place] back to complete echo once therapy is completed. * Mimi Solo OT - 02/23/2024 10:29 AM EST [facility] ICU STEPDOWN TELEMETRY 4K Occupational Therapy Daily Note Discharge Recommendations: ECF with OT and 24 hour assistance or supervision Equipment Recommendations: No continue to monitor Time In: 1029 Time Out: 1053 Timed Code Treatment Minutes: 24 Minutes Minutes: 24 Date: 02/23/2024 Patient Name: Tavo Wallis, Gender: male Room: [address] [place] [address] : 1940 (83 y.o.) Referring Practitioner: Randi [...] in the past year?: Yes (~5) Active Rabble Furnace Tender: Yes (Daughter able to transport until cleared to drive again.) Mode of Transportation: Truck Additional Comments: 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 Modified [place] Scale: Not Applicable ASSESSMENT: Activity Tolerance: Patient [...] with SBA to complete sink side grooming. Detention Goals Time Frame for Detention Goals : None due to ELOS Following session, patient left in safe position with all fall risk precautions in place. 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 Functional Outcome Measures: [facility] (6 CLICK) BASIC MOBILITY [facility] Inpatient Mobility Raw Score : 14 [facility] Inpatient T-Scale Score : 38.1 Modified Flaco [...] Supervision in orderto assist with home entry. Ballistic Expert Goals Time Frame for Ballistic Expert Goals : N/A due to ELOS Following [...] and alert, cooperative. 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 Detention Goals Time Frame for Ballistic Expert Goals : N/A due to ELOS Following session, patient left in safe position with all fall risk precautions in place. 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, use of cane mainly and uses various [...] to visually scan in room for targets [facility] Inpatient Daily Activity Raw Score: 14 [facility] Inpatient ADL T-Scale Score : 33.39 ADL Inpatient CMS 0-100% Score: 59.67 Activity Tolerance: Patient tolerance of treatment: Good treatment tolerance, Limited by fatigue, Limited by medical complications, and Reduced activity pace Functional Outcome Measures: [facility] Inpatient Daily Activity Raw Score: 14 [facility] Inpatient ADL T-Scale Score : 33.39 ADL Inpatient CMS 0-100% Score: 59.67 ADL Inpatient CMS G-Code Modifier : CK Modified [place]: Premorbid Functional Status: Not Applicable Current Functional [...] with SBA to complete sink side grooming. Detention Goals Time Frame for Ballistic Expert Goals : None due to ELOS [facility] Daily [facility] Raw [facility]: [facility] T-Scale Score : 33.39 Following [...] and alert, cooperative. States he is at [facility] for back surgery, knows his [...] sat 77% on 6L NC. Respirations labored. UTILITIES OPERATOR at pt bedside and placed NPA in [...] with eyes closed comfortably. VSS. 1745: Called [facility] to have nurse update family about room number and that room was awaiting to be cleaned. Stat clean placed on room 1810: Repositioned patient at this time and provided more water, tolerated well 182: Pt resting off and on with eyes closed, easily awakens to voice. 1830: [facility] called pacu for update per family request, update given that pt continuing to await room to finish cleaning 185: Called family to update of patients room being ready and patient being in for transport 185: Emptied 150mls from hemovac drain 185: Pt transported to in stable condition. VSS * Karen Ambrocio RN - 02/21/2024 7:57 AM EST Patient admitted to [facility] room 3 with family at bedside. Bed in low position side rails up call lightin reach. Patient denies questions at this time. Abigail (daughter) [phone] * Edilma Abdul RN - 02/20/2024 9:01 AM EST Called for clearance from Dr Mcintyre * Edilma Abdul RN - 02/15/2024 12:11 PM EST Called [facility] medical records for labs, CXR, EKG and any other testing pt has done for surgery. Had to leave message * Edilma Abdul RN - 02/15/2024 9:57 AM EST PAT call attempted, patient unavailable, left message to please call us back at your earliest convenience; [phone] * Edilma Abdul RN - 02/14/2024 3:[address] Burris for labs, EKG, clearance, and CXR documented in this encounterBon [facility] Hospital Discharge instructions* Discharge Instructions* Gustabo [...] already scheduled for an appointment - ext [phone] If any concerning symptoms, such as calf [...] at most local grocery stores, pharmacies, and [employer]. If you have any questions about your [...] directive for healthcare treatment Durable power of jig grinder for health care;Living will Yes, copy in chart -- -- -- Admitting Physician: Randi Burris MD PCP: Opal Ga DO Discharging Nurse: Discharging Hospital Unit/Room#: 4K-25/025-A Discharging Unit Phone Number: Emergency Contact: Extended Emergency Contact Information Primary Emergency Contact: DamiannixonNicole Mobile Relation: Child Principal Military Analyst needed? No Past Surgical History: Past Surgical History: Procedure Laterality Date BACK SURGERY x2 lumbar area EYE SURGERY Bilateral catract JOINT REPLACEMENT Bilateral both kness, left hip, both shoulders rotator cuff, LUMBAR FUSION N/A 02/21/2024 L2-5 Decompression and Non Instrumented Fusion performed by Randi Burris MD at [facility] OR Immunization History: Immunization History Administered Date(s) [...] Assisted Dressing Assisted Toileting Assisted Feeding Assisted Websphere Consultant Assisted Med Delivery whole Wound Care Documentation [...] Status Date: 02/22/2024 Readmission Risk Assessment Score: [facility] RISK OF UNPLANNED READMISSION 2.0 15.2 Total Score Discharging to Facility/ Agency Name: [facility] Address: [address] [place] [address] Dialysis Facility (if applicable) Name: Address: Dialysis Schedule: Phone: Fax: Manager Chinese/Value Stream Coach signature: PHYSICIAN SECTION Prognosis: Good Condition at Discharge: Stable Rehab Potential (if transferring to Rehab): Good Recommended Labs or Other Treatments After Discharge: complete course of antibiotic, PT/OT Physician Certification: I certify the above information and transfer of Tavo Wallis is necessary for the continuing treatment of the diagnosis listed and that he requires Alf Facility for less 30 days. Update Admission H&P: No change in H&P PHYSICIAN SIGNATURE: documented in this encounterBon [facility] History of Present illness Narrative* Tavo [...] 2 3. Chronic atrial fibrillation (Multi) 4. longterm current use of anticoagulant therapy 5. Primary [...] exam, discussion and plan. [facility] Work Phone: 1(658) 515-571212-12-2024 Instructions* Patient Instructions* Viridiana Walden LPN - [...] from a cardiac standpoint [facility]Fort [facility] Work Phone: 1([phone]) 646-160912-09-2024 Evaluation note* Author Danna Melgar [facility] 2023 9:28amThe above note written by Danna Melgar LPN, acting as human recorder, note dictated by Dr. Opal Ga. [facility] Work Phone: 1(785) 646-173105-08-2024 History of Present illness Narrative* Tavo Myranda DO Francisco Javier - 07/13/2023 9:40 AM EDT Subjective Tavo Wallis is a 82 y.o. male Chief Complaint Annual Exam 82-year-old gentleman returns for follow-up. He is doing well from a cardiovascular standpoint he is debilitated by his significant osteoarthritis, recent peripheral nerve/ablations performed at [facility] this past year. He has [...] exam, discussion and plan. documented in [facility]Fort [facility] Work Phone: 1(140) 765-452705-08-2024 Instructions* Patient Instructions* Hermilo Bell MA - [...] Fall Prevention Education Given documented in [facility]Fort [facility] Work Phone: 1(419) 888-232101-12-2024 Evaluation note* Encounter Date Diagnosis Assessment Notes Treatment Notes Treatment Clinical Notes Mar, Lumbar degenerative disc disease (ICD-10 - M51.36) Patient is following with pain management at [place], had a recent branch block. He is [...] above medication. We will continue to monitor. [facility] Other 10-02-2023 Evaluation note* Encounter Date Diagnosis Assessment Notes Treatment Notes Treatment Clinical Notes Dec, Insomnia (ICD-10 - G47.00) [facility] Other 09-26-2023 Evaluation note* Encounter Date Diagnosis Assessment Notes Treatment Notes Treatment Clinical Notes Nov, Gout (ICD-10 - M10.9) [facility] Other 07-12-2023 Evaluation note* Encounter Date Diagnosis [...] the care of pain management out of [place]. States the pain is slightly improved and [...] to thin out the secretions. Rx sent [facility] Other 07-05-2023 Evaluation note* Encounter Date Diagnosis Assessment Notes Treatment Notes Treatment Clinical Notes Sep, Hyperlipidemia (ICD-10 - E78.5) Sep,Insomnia (ICD-10 - G47.00) Sep,Hypothyroidism, unspecified (ICD-10 - E03.9) [facility] Other 04-03-2023 Evaluation note* Encounter Date Diagnosis Assessment Notes Treatment Notes Treatment Clinical Notes Jun, Lumbar degenerative disc disease (ICD-10 - M51.36) I am in agreement the patient keep the above medication on hand to use sparingly for back pain and to continue following with Pain Management. The patient states he does still go to the [facility] for hunting trips with a group [...] Jun,Screening for prostate cancer (ICD-10 - Z12.5) [facility] Other 03-28-2023 Evaluation note* Encounter Date Diagnosis Assessment Notes Treatment Notes Treatment Clinical Notes May, Insomnia (ICD-10 - G47.00) [facility] Other 03-07-2023 Evaluation note* Encounter Date Diagnosis Assessment Notes Treatment Notes Treatment Clinical Notes May, Atrial fibrillation (ICD-10 - I4 8.91) [facility] Other 02-09-2023 NoteCONSULTATION CONSULTATION DATE: 04/15/2022 HISTORY [...] clinic in three months' time.[id number] Evaluation note* Encounter Date Diagnosis Assessment Notes [...] wear a hat out in the sun. [facility] Other 12-29-2022 Evaluation note* Encounter Date Diagnosis Assessment Notes Treatment Notes Treatment Clinical Notes Feb, Insomnia (ICD-10 - G47.00) Feb,Hypothyroidism, unspecified (ICD-10 - E03.9) [facility] Other 12-28-2022 Evaluation note* Encounter Date Diagnosis Assessment Notes Treatment Notes Treatment Clinical Notes Feb, Insomnia (ICD-10 - G47.00) Feb,Hypothyroidism, unspecified (ICD-10 - E03.9) [facility] Other 12-15-2022 NoteCONSULTATION CONSULTATION DATE: 02/18/2022 HISTORY [...] with the plan of care.[facility] [id number] Evaluation note* Encounter Date Diagnosis Assessment Notes Treatment Notes Treatment Clinical Notes Feb, Lumbar degenerative disc disease (ICD-10 - M51.36) Daughter feels that patient was doing quite well while he was getting daily PT at [facility], however now that he has [...] upon examination, continue using the above powder. [facility] Other 11-11-2022 Progress note Author Raji [facility] January 15, 2022 4:51pmNote Date/TimeNov2021 4:[place] [address] Hospitalist Progress Note Signed Patient: Tavo Wallis Jr MR# : [id number] : 1940 Acct:[id number] Age/Sex: 81 / M Adm Date: 2 Loc: 3T Room: [address] [place] [address] Type: ADM IN Attending Dr: Raji Ennis [...] Propionate 1 spray 01/09/22 15:17 Fluticasone Propionate [place] 120 [place]/16 Gm Bottle NARES-BOTH 01/09/23 15:16 QHS PRN [...] tomorrow. Documented By: Raji Ennis MD 01/15/22 6557 Signed By: <Electronically signed by Raji Ennis MD> 01/15/22 1651 [facility] Work Phone: 1(259) 328-737611-11-2022 Progress note Author Frankie Reynolds [facility] January 15, 2022 12:21pmNote Date/TimeNov2021 12:21pm[place] [address] Infect. Disease Progress Note Signed Patient: Tavo Wallis Jr MR# : [id number] : 1940 Acct:[id number] Age/Sex: 81 / M Adm Date: 2 Loc: Room: 4N6083-2 Type: ADM IN Attending Dr: Raji Ennis [...] 300 Mg Tablet) 300 mg PO DAILY [facility] Stop: 01/10/23 08:59 Last Admin: 01/15/22 08:46 Dose: 300 mg Apixaban (Apixaban 5 Mg Tablet) 5 mg PO BID [facility] Stop: 01/09/23 20:59 Last Admin: 01/15/22 [...] 1 Mg Tablet) 1 mg PO DAILY@0800 [facility] Stop: 01/14/23 15:59 Last Admin: 01/15/22 08:46 Dose: 1 mg Docusate Sodium (Docusate 100 Mg Capsule) 100 mg PO BID [facility] Stop: 01/09/23 20:59 Last Admin: 01/15/22 08:46 Dose: 100 mg Fluticasone Propionate (Fluticasone Propionate [place] 120 [place]/16 Gm Bottle) 1 spray NARES-BOTH QHSPRN PRN Reason: Nasal Congestion Stop: 01/09/23 15:16 Magnesium Sulfate (Magnesium Sulf 2gm-*Swfi*) 2 gm in 50 mls @ 25 mls/hr IV DAILY PRN PRN Reason: Magnesium Level < 1.5 Stop: 01/09/23 14:40 Levothyroxine Sodium (Levothyroxine 150 Mcg Tablet) 150 mcg PO DAILY@0630 [facility] Stop: 01/10/23 06:29 Last Admin: 01/15/22 [...] 3 Mg (Tablet) 3 mg PO HS [facility] Stop: 01/11/23 21:59 Last Admin: 01/14/22 21:32 Dose: 3 mg Nystatin (Nystatin 100,000 Unit/Gram Powder 15 Gm Bottle) 1 applic TOPICAL TID [facility] Stop: 01/09/23 21:59 Last Admin: 01/15/22 [...] 20 Meq Tab.Er.Prt) 20 meq PO QPM [facility] Stop: 01/09/23 20:59 Last Admin: 01/14/22 [...] by MD Frankie Reynolds> 01/15/22 1221 [facility] Work Phone: 1([phone]) 577-738411-10-2022 Progress note Author Raji Ennis [facility] January 14, 2022 5:43pmNote Date/TimeNov2021 5:43pm[place] [address] Hospitalist Progress Note Signed Patient: Tavo Wallis Jr MR# : [id number] : 1940 Acct:[id number] Age/Sex: 81 / M Adm Date: 2 Loc: Room: [address] [place] [address] Type: ADM IN Attending Dr: Raji Ennis [...] Propionate 1 spray 01/09/22 15:17 Fluticasone Propionate [place] 120 [place]/16 Gm Bottle NARES-BOTH 01/09/23 15:16 QHS PRN [...] 21:17 Dextrose IV 01/14/22 23:59 Infused Q24H [facility] Infusion Levothyroxine Sodium 150 mcg 01/10/22 06:30 01/14/22 05:54 Levothyroxine 150 Mcg Tablet PO 01/10/23 06:29 150 mcg DAILY@0630 [facility] Administration Magnesium Hydroxide 30 ml 01/09/22 [...] signed by Raji Ennis MD> 01/14/221742 [facility] Work Phone: 1(654) 429-776911-10-2022 Progress note Author Frankie Reynolds [facility] January 14, 2022 9:39amNote Date/TimeNov2021 9:39am[place] [address] Infect. Disease Progress Note Signed Patient: Tavo Wallis Jr MR# : [id number] : 1940 Acct:[id number] Age/Sex: 81 / M Adm Date: 2 Loc: Room: [address] [place] [address] Type: ADM IN Attending Dr: Raji Ennis [...] Appearance Clear Urine pH 5.5 Ur Specific [place] 1.012 Urine Protein 30 H Urine Glucose [...] 300 Mg Tablet) 300 mg PO DAILY [facility] Stop: 01/10/23 08:59 Last Admin: 01/14/22 08:04 Dose: 300 mg Apixaban (Apixaban 5 Mg Tablet) 5 mg PO BID [facility] Stop: 01/09/23 20:59 Last Admin: 01/14/22 [...] 1 Mg Tablet) 1 mg PO BID@0800,1600 [facility] Stop: 01/13/23 15:59 Docusate Sodium (Docusate 100 Mg Capsule) 100 mg PO BID [facility] Stop: 01/09/23 20:59 Last Admin: 01/14/22 08:03 Dose: 100 mg Fluticasone Propionate (Fluticasone Propionate [place] 120 [place]/16 Gm Bottle) 1 spray NARES-BOTH QHSPRN PRN Reason: Nasal Congestion Stop: 01/09/23 15:16 Magnesium Sulfate (Magnesium Sulf 2gm-*Swfi*) 2 gm in 50 mls @ 25 mls/hr IV DAILY PRN PRN Reason: Magnesium Level < 1.5 Stop: 01/09/23 14:40 Cefepime HCl (Maxipime) 2 gm in 50 mls @ 100 mls/hr IV Q12H [facility] Last Admin: 01/14/22 03:05 Dose: 100 mls/hr Vancomycin HCl 1.25 gm/ (Dextrose) 275 mls @ 183.333 mls/hr IV Q24H [facility] Stop: 01/13/23 18:59 Last Infusion: 01/13/22 21:17 Dose: Infused Levothyroxine Sodium (Levothyroxine 150 Mcg Tablet) 150 mcg PO DAILY@0630 [facility] Stop: 01/10/23 06:29 Last Admin: 01/14/22 05:54 Dose: 150 mcg Magnesium Hydroxide (Magnesium Hydroxide Susp 30 Ml Udc) 30 ml PO BID PRN PRN Reason: Constipation Stop: 01/09/23 14:40 Magnesium Oxide (Magnesium Oxide 400 Mg Tablet) 400 mg PO DAILY [facility] Stop: 01/10/23 08:59 Last Admin: 01/14/22 08:04 Dose: 400 mg Nitroglycerin (Nitroglycerin 0.4 Mg Tab.Subl) 0.4 mg SUBLINGUAL Q5MIN.X3 PRN PRN Reason: Chest Pain Stop: 01/09/23 14:40 Pom Eszopiclone 3 Mg (Tablet) 3 mg PO HS [facility] Stop: 01/11/23 21:59 Last Admin: 01/13/22 21:27 Dose: 3 mg Nystatin (Nystatin 100,000 Unit/Gram Powder 15 Gm Bottle) 1 applic TOPICAL TID [facility] Stop: 01/09/23 21:59 Last Admin: 01/14/22 [...] By: <Electronically signed by MD Frankie Reynolds> 01/14/2217 [facility] Work Phone: 1(163) 369-405111-09-2022 Progress note Author Mani Dickens [facility] January 13, 2022 6:10pmNote Date/TimeNov2021 8:13[place] [id number] Neurology Progress Note Signed with Addenda Patient: Tavo Wallis Jr MR# : [id number] : 1940 Acct:[id number] Age/Sex: 81 / M Adm Date: 2 Loc: Room: [address] [place] [address] Type: ADM IN Attending Dr: Raji Ennis [...] extremities * Unable to test finger-nose or [id number] due to drowsiness REFLEX EXAM: * 1/4 [...] Therapy Recommendations: OT Recommendations OT Recommended Discharge Alf Facility Location OT Recommended Services at Physical Therapy,Occupational Therapy Discharge PT Recommendations PT Recommended Discharge Alf Facility Location PT Recommended Services at Physical [...] signed by MEI Knight> 01/13/22 1520 [facility] Work Phone: 1(419) 240-748011-09-2022 Progress note Author Raji [facility] January 13, 2022 3:44pmNote Date/TimeNovember 2021 3:27pm[place] [address] Hospitalist Progress Note Signed Patient: Tavo Wallis MR# : [id number] : 1940 Acct:[id number] Age/Sex: 81 / M Adm Date: 2 Loc: 3T Room: [address] [place] [address] Type: ADM IN Attending Dr: Raji Ennis [...] 1 Mg Tablet PO 01/13/23 15:59 BID@0800,1600 [facility] Docusate Sodium 100 mg 01/09/22 21:00 01/13/22 09:43 Docusate 100 Mg Capsule PO 01/09/23 20:59 100 mg BID [facility] Administration Fluticasone Propionate 1 spray 01/09/22 15:17 Fluticasone Propionate [place] 120 [place]/16 Gm Bottle NARES-BOTH 01/09/23 15:16 QHS PRN [...] signed by Raji Ennis MD> 01/13/[address] [facility] Work Phone: 1(880) 532-573211-09-2022 Consult note Author Frankie Reynolds [facility] January 13, 2022 10:45amNote Date/TimeNovember 2021 10:[place] [id number] Infect. Disease Consult Note Signed Patient: Tavo Wallis Jr MR# : [id number] : 1940 Acct:[id number] Age/Sex: 81 / M Adm Date: 2 Loc: 3T Room: [address] [place] [address] Type: ADM IN Attending Dr: Raji Ennis [...] negative unless noted below or in HPI [facility] Attestation Statement: The following information was [...] Mg/4 Ml Vial) 1 mg IV-PUSH BID@0800,1600 [facility] Stop: 01/13/23 07:59 Last Admin: 01/13/22 09:43 Dose: 1 mg Docusate Sodium (Docusate 100 Mg Capsule) 100 mg PO BID [facility] Stop: 01/09/23 20:59 Last Admin: 01/13/22 09:43 Dose: 100 mg Fluticasone Propionate (Fluticasone Propionate [place] 120 [place]/16 Gm Bottle) 1 spray NARES-BOTH QHSPRN PRN Reason: Nasal Congestion Stop: 01/09/23 15:16 Magnesium Sulfate (Magnesium Sulf 2gm-*Swfi*) 2 gm in 50 mls @ 25 mls/hr IV DAILY PRN PRN Reason: Magnesium Level < 1.5 Stop: 01/09/23 14:40 Cefepime HCl (Maxipime) 2 gm in 50 mls @ 100 mls/hr IV Q12H [facility] Last Admin: 01/13/22 03:07 Dose: 100 mls/hr Levothyroxine Sodium (Levothyroxine 150 Mcg Tablet) 150 mcg PO DAILY@0630 [facility] Stop: 01/10/23 06:29 Last Admin: 01/13/22 06:26 Dose: 150 mcg Magnesium Hydroxide (Magnesium Hydroxide Susp 30 Ml Udc) 30 ml PO BID PRN PRN Reason: Constipation Stop: 01/09/23 14:40 Magnesium Oxide (Magnesium Oxide 400 Mg Tablet) 400 mg PO DAILY [facility] Stop: 01/10/23 08:59 Last Admin: 01/13/22 09:43 Dose: 400 mg Nitroglycerin (Nitroglycerin 0.4 Mg Tab.Subl) 0.4 mg SUBLINGUAL Q5MIN.X3 PRN PRN Reason: Chest Pain Stop: 01/09/23 14:40 Pom Eszopiclone 3 Mg (Tablet) 3 mg PO HS [facility] Stop: 01/11/23 21:59 Last Admin: 01/12/22 22:51 Dose: 3 mg Nystatin (Nystatin 100,000 Unit/Gram Powder 15 Gm Bottle) 1 applic TOPICAL TID [facility] Stop: 01/09/23 21:59 Last Admin: 01/13/22 [...] <Electronically signed by MD Frankie Reynolds> 01/13/22 1042 [facility] Work Phone: 1(630) 367-131811-08-2022 Progress note Author W Be Mcintyre [facility] January 12, 2022 6:11pmNote Date/TimeNov2021 6:11pm[place] [address] Cardiology Progress Note Signed Patient: Tavo Wallis Jr MR# : [id number] : 1940 Acct:[id number] Age/Sex: 81 / M Adm Date: 2 Loc: Room: [address] [place] [address] Type: ADM IN Attending Dr: Raji Ennis [...] % (Auto) 76.3 Lymph % (Auto) 12.2 Sutton % (Auto) 9.1 Eos % (Auto) 1.9 Baso % (Auto) 0.5 Neut # (Auto) 7.7 Lymph # (Auto) 1.2 Sutton # (Auto) 0.9 H Eos # (Auto) [...] 2.9 Globulin (PEP) 2.4 Albumin/Globulin (PEP) 1.2 Rzyxp-8-Dierqfmav 0.4 Xhjyw-6-Gqidrvlan 0.7 Beta Globulins 0.6 L Gamma Globulins 0.8 M-Franky Not observed PEP Note IgG 816 IgA 171 IgM 105 Serum Immunofixation 01/12/22 06:42 Corrected WBC Uncorrected WBC Count RBC Hgb Hct MCV MCH MCHC RDW Plt Count MPV Neut % (Auto) Lymph % (Auto) Sutton % (Auto) Eos % (Auto) Baso % (Auto) Neut # (Auto) Lymph # (Auto) Sutton # (Auto) Eos # (Auto) Baso # (Auto) Nucleated RBC % (auto) PHA Creatinine Clear Sodium Potassium Chloride Carbon Dioxide Anion Gap BUN Creatinine Est GFR ( Amer) Est GFR (Non-Af Amer) Glucose Calcium C-Reactive Prot, Quant 8.4 H Serum Total Protein Albumin (Send Out) Globulin (PEP) Albumin/Globulin (PEP) Dhwog-8-Ebspryvvb Ljtbq-8-Gdrlazreq Beta Globulins Gamma Globulins M-Franky PEP Note [...] by Bhupinder Mcintyre DO> 01/12/22 1811 [facility] Work Phone: 1(898) 572-448511-08-2022 Progress note Author Raji Ennis [facility] January 12, 2022 4:38pmNote Date/TimeNov2021 4:38pmCollege [place] [address] Hospitalist Progress Note Signed Patient: Tavo Wallis Jr MR# : [id number] : 1940 Acct:[id number] Age/Sex: 81 / M Adm Date: 2 Loc: Room: [address] [place] [address] Type: ADM IN Attending Dr: Raji Ennis [...] Propionate 1 spray 01/09/22 15:17 Fluticasone Propionate [place] 120 [place]/16 Gm Bottle NARES-BOTH 01/09/23 15:16 QHS PRN [...] signed by Raji Ennis MD> 01/12/228 [facility] Work Phone: 1(527) 329-668411-08-2022 Progress note Author Mani Dickens [facility] January 12, 2022 4:10pmNote Date/TimeNov2021 8:19[place] [address] Neurology Progress Note Signed Patient: Tavo Wallis Jr MR# : [id number] : 1940 Acct:[id number] Age/Sex: 81 / M Adm Date: 2 Loc: Room: [address] [place] [address] Type: ADM IN Attending Dr: Raji Ennis [...] extremities * Unable to test finger-nose or slgh-wt-araw due to drowsiness REFLEX EXAM: * 1/4 [...] Therapy Recommendations: OT Recommendations OT Recommended Discharge Alf Facility Location OT Recommended Services at Physical Therapy,Occupational Therapy Discharge PT Recommendations PT Recommended Discharge Alf Facility Location PT Recommended Services at Physical [...] of the encounter, reviewed the history,performed the morrisno elements of the exam, formulated the plan of care and confirmed the OUTREACH DIRECTOR note The patient is an 81-year-old man [...] by MD Mani Dickens> 01/12/22 1610 [facility] Work Phone: [phone]) 396-371211-07-2022 Progress note Author Raji Ennis [facility] January 11, 2022 5:04pmNote Date/TimeNov2021 5:[address]pm[address] [address] Hospitalist Progress Note Signed Patient: Tavo Wallis Jr MR# : [id number] : 1940 Acct:[id number] Age/Sex: 81 / M Adm Date: 2 Loc: Room: [address] [place] [address] Type: ADM IN Attending Dr: Rjai Ennis MD Copies to: ~ Date of [...] Propionate 1 spray 01/09/22 15:17 Fluticasone Propionate [place] 120 [place]/16 Gm Bottle NARES-BOTH 01/09/23 15:16 QHS PRN [...] 01/11/22 22:00 Tablet PO 01/11/23 21:59 HS [facility] Nystatin 1 applic 01/09/22 22:00 01/11/22 [...] prophylaxis Documented By: Raji Ennis MD 01/11/22 9907 Signed By: <Electronically signed by Raji Ennis MD> 01/11/22 7756 [facility] Work Phone: 1(196) 517-528211-07-2022 Progress note Author Mani Dickens [facility] January 11, 2022 5:02pmNote Date/TimeNov2021 8:55[place], [place] [address] Neurology Progress Note Signed Patient: JadynTavo sevilla Jr MR# : [id number] : 1940 Acct:[id number] Age/Sex: 81 / M Adm Date: 2 Loc: 3T Room: [address] [place] [address] Type: ADM IN Attending Dr: Raji Ennis [...] knee to all modalities. CEREBELLAR EXAM: * Vblxsl-ig-ogoe and alternating movements are intact and normal in bilateral upper extremities * Xxay-od-mgma and alternating movements are intact and normal [...] Therapy Recommendations: OT Recommendations OT Recommended Discharge Alf Facility Location OT Recommended Services at Physical Therapy,Occupational Therapy Discharge PT Recommendations PT Recommended Discharge Alf Facility Location PT Recommended Services at Physical [...] the plan of care and confirmed the OUTREACH DIRECTOR note The patient is an 81-year-old man [...] by MD Mani Dickens> 01/11/22 170 [facility] Work Phone: 1(630) 528-587311-07-2022 Progress note Author W Be Mcintyre [facility] January 11, 2022 2:09pmNote Date/TimeNov2021 2:09pm[place] [address] Cardiology Progress Note Signed Patient: Tavo Wallis Jr MR# : [id number] : 1940 Acct:[id number] Age/Sex: 81 / M Adm Date: 2 Loc: Room: [address] [place] [address] Type: ADM IN Attending Dr: Raji Ennis [...] % (Auto) 73.8 Lymph % (Auto) 13.7 Sutton % (Auto) 9.6 Eos % (Auto) 2.2 Baso % (Auto) 0.7 Neut # (Auto) 6.3 Lymph # (Auto) 1.2 Sutton # (Auto) 0.8 Eos # (Auto) 0.2 [...] by Bhupinder Mcintyre DO> 01/11/22 1409 [facility] Work Phone: 1(636) 222-716011-06-2022 Progress note Author Dharmesh Zavala [facility] January 10, 2022 8:54pmNote Date/TimeNov2021 8:54pm[place] [address] Hospitalist Progress Note Signed Patient: Tavo Wallis Jr MR# : [id number] : 1940 Acct:[id number] Age/Sex: 81 / M Adm Date: 2 Loc: Room: [address] [place] [address] Type: ADM IN Attending Dr: Dharmesh Zavala DO Copies to: ~ Date of Service: 01/10/2022 Subjective Subjective Narrative: When I entered the room the patient tells me that he is getting a pain in the thighs on the top of his legs. He does mention that the people in [place] told me that was due to the [...] Capsule PO 01/09/23 20:59 Not Given BID [facility] Fluticasone Propionate 1 spray 01/09/22 15:17 Fluticasone Propionate [place] 120 [place]/16 Gm Bottle NARES-BOTH 01/09/23 15:16 QHS PRN [...] signed by Dharmesh Zavala DO> 01/10/222053 [facility] Work Phone: [phone] Consult note Author Vikas Mane [facility] January 10, 2022 12:35pmNote Date/TimeNov2021 9:20[place], [place] [address] Neurology Consult Note Signed Patient: Tavo Wallis Jr MR# : [id number] : 1940 Acct:[id number] Age/Sex: 81 / M Adm Date: 2 Loc: Room: [address] [place] [address] Type: ADM IN Attending Dr: Dharmesh Zavala DO Copies to: DO Opal Pollock,DO Dharmesh Zavala DO~ HPI Consult Date: 01/10/22 Automotive Finance Manager: Vikas Mane DO PMFSH Vaccinated for COVID-19?: [...] Esa Cardoso M.D.01/09/2022 10:11 AM Dictation Location: [place] [address] Renal Ultrasound 01/10/22 05:00 IMPRESSION: No hydronephrosis. Impression dictated by: Esa Cardoso M.D.01/10/2022 9:07 AM Dictation Location: [place] [address] Assessment/Plan (1) Falls frequently: Assessment/Problem Details: HPI: [...] rapidly alternating movements. No limb dysmetria with binzre-vake-lllswr testing. DATA REVIEW: MRI lumbar spine from [...] <Electronically signed by Vikas Mane DO> 01/10/[address] [place] [address] Work Phone: [phone]) [phone] Consult note Author Marv Urena [facility] January 10, 2022 11:32amNote Date/TimeNov2021 11:32[place], [place] [address] Cardiology Consult Note Signed Patient: Tavo Wallis Jr MR# : [id number] : 1940 Acct:[id number] Age/Sex: 81 / M Adm Date: 2 Loc: Room: [address] [place] [address] Type: ADM IN Attending Dr: Dharmesh Zavala DO Copies to: DO Marv Catalan MD, [facility] Dharmesh Zavala DO~ Cardiology HPI History of [...] He has adequate social support at home. [facility] Vaccinated for COVID-19?: Yes Medical History (Updated [...] x10E3/uL Lymph # (Auto) 1.0 (1.00-4.8) x10E3/uL Sutton # (Auto) 1.0 H (0.0-0.8) x10E3/uL Eos [...] Bradycardia, unspecified Documented By: Marv Urena MD, [facility] 2 1125 Signed By: <Electronically signed by [facility] Marv Urena> 01/10/22 1132 [facility] Work Phone: 1([phone]) 640-819111-05-2022 History and physical note Author Dharmesh Zavala [facility] January 09, 2022 3:30pmNote Date/TimeNov2021 3:30pm[place] [address] Hospitalist H&P Signed Patient: Tavo Wallis Jr MR# : [id number] : 1940 Acct:[id number] Age/Sex: 81 / M Adm Date: 2 Loc: Room: [address] [place] [address] Type: ADM IN Attending Dr: Dahrmesh Zavala DO Copies to: DO Dharmesh Catalan, [...] that he had seen a urologist in [place] recently. Patient used to be on a number of prostate medications but apparently they were stopped because they are not doing what they are supposed to be doing. The patient andhis daughter have a discussion about what urology was doing for the situation without finding a specific answer. Patient also describes that he has been veryconstipated lately and takes an unspecified lttc-fob-pbciemd generic stool softener. His daughter does point [...] radiofrequency ablations by pain management doctor in [place]. Review of Systems Review of Systems Review [...] % (Auto) 13.5 % (.) 01/09/22 10:36 Sutton % (Auto) 14.2 % (.) 01/09/22 10:36 Eos % (Auto) 0.1 % (.) 01/09/22 10:36 Baso % (Auto) 1.0 % (.) 01/09/22 10:36 Neut # (Auto) 4.3 x10E3/uL (1.8-7.7) 01/09/22 10:36 Lymph # (Auto) 0.8 x10E3/uL (1.00-4.8) L 01/09/22 10:36 Sutton # (Auto) 0.9 x10E3/uL (0.0-0.8) H 01/09/22 [...] pH 5.5 (5.0-9.0) 01/09/22 12:42 Ur Specific Weatherby 1.018 (1.001-1.030) 01/09/22 12:42 Urine Protein Trace [...] by Dharmesh Zavala, > 01/09/22 1530 [facility] Work Phone: 1(886) 825-260711-03-2022 Evaluation note* Encounter Date Diagnosis Assessment Notes [...] in a week to re-evaluate the area. [facility] Other 10-21-2022 Evaluation note* Encounter Date Diagnosis Assessment Notes Treatment Notes Treatment Clinical Notes Dec, Lower extremity edema (ICD-10 - R60.0) [facility] Other 10-13-2022 NoteCONSULTATION CONSULTATION DATE: 12/17/2021 HISTORY [...] next refill, we will change it to [place] 5/325 daily p.r.n. and the patient is encouraged to increase oral fluids and to continue with his stool softener on a daily basis. Heat education was discussed with the patient, as far as frequency and consistency. We will see him in three months' time, unless otherwise indicated, and all questions answered today.[facility] [id number] NoteCONSULTATION CONSULTATION DATE: 11/12/2021 HISTORY OF PRESENT [...] in the office post procedure.[facility] [id number] Evaluation note* Encounter Date Diagnosis Assessment Notes [...] manage his swelling better. He voiced understanding. [facility] Other 07-25-2022 Evaluation note* Encounter Date Diagnosis Assessment Notes Treatment Notes Treatment Clinical Notes Sep, CHF (congestive heart failure) ( ICD-10 - I50.9) [facility] Other 07-08-2022 Evaluation note* Encounter Date Diagnosis Assessment Notes Treatment Notes Treatment Clinical Notes Sep, CHF (congestive heart failure) ( ICD-10 - I50.9) Patient is to hold bumex until re-evaluated in one month per Dr. Opal Ga. [facility] Other 07-07-2022 Evaluation note* Encounter Date Diagnosis Assessment Notes Treatment Notes Treatment Clinical Notes Sep, Atrial fibrillation (ICD-10 - I4 8.91) [facility] Other 07-01-2022 Evaluation note* Encounter Date Diagnosis Assessment Notes Treatment Notes Treatment Clinical Notes Sep, Insomnia (ICD-10 - G47.00) Sep,Gout (ICD-10 - M10.9) [facility] Other 06-27-2022 Evaluation note* Encounter Date Diagnosis [...] is in AF today. He did see rn referral a few weeks ago and is stable [...] continue with current medications at this time. [facility] Other 06-09-2022 NoteCONSULTATION CONSULTATION DATE: 08/13/2021 This [...] in three months' time unless otherwise indicated. [facility] Signed and Approved by: NATACHA RODARTE . 08/20/2021 16:02:00[facility] [id number] Evaluation note* Encounter Date Diagnosis Assessment Notes Treatment Notes Treatment Clinical Notes May, Insomnia (ICD-10 - G47.00) [facility] Other 01-05-2022 Evaluation note* Encounter Date Diagnosis Assessment Notes Treatment Notes Treatment Clinical Notes Mar, Atrial fibrillation (ICD-10 - I4 8.91) [facility] Other 12-30-2021 Evaluation note* Encounter Date Diagnosis Assessment Notes Treatment Notes Treatment Clinical Notes Feb, Insomnia (ICD-10 - G47.00) [facility] Other 11-15-2021 Evaluation note* Encounter Date Diagnosis [...] Jan,creening for prostate cancer (ICD-10 - Z12.5) [facility] Other 03-19-2007 History general Narrative - Reported* Type Description Date Medical History EKG 05-23-2006 Medical HistoryMRI Lumbar Spine 01-13-11; [facility]Medical Historyleft hip replacement 3-58-28Mhkckef Dbwdpch01/18/14-[facility] Historyfollows with urologyMedical History05/11/16 Stress TestMedical Historyf/u with Dr Mcintyre for CHF, A-FibMedical HistoryDr Brambila pain mgmt- back spondylolysisMedical HistoryMUGA Stress test 4/10/17 NOHCMedical History 05/10/2018 Colonscopy due to positive cologuard- polypectomy- Dr. Sweet Historyvenous insufficiencyMedical HistoryHTNMedical HistoryDJDMedical History HypothyroidismMedical HistoryMild CRIMedical HistoryCHFSurgical HistoryLeg and ankleSurgical HistoryBackSurgical HistoryBoth ShouldersSurgical HistoryHand Surgical HistoryNoseSurgical HistoryTumor removed from back that was in the [id number] Historyleft hip vdahtbcmwwi1-99-06Fwhrxpjg History Bilateral Naxanzsd8339Spidiekx HistoryLTJADON Lezama11/05/19[facility], A-Fib04/2016 [facility] Other [id number] History general Narrative - Reported* Type Description Date Medical History EKG 05-23-2006 Medical HistoryMRI Lumbar Spine [facility]-11[facility] replacement 5-52-72Bpnsdyv Ixoiwms31/18/14-[facility] Historyfollows with urologyMedical History05/11/16 Stress TestMedical Historyf/u with Dr Mcintyre for CHF, A-FibMedical HistoryDr Brambila pain mgmt- back spondylolysisMedical HistoryMUGA Stress test 06/14/16 NOMedical History 05/10/2018 Colonscopy due to positive cologuard- polypectomy- Dr. Sweet Historyvenous insufficiencyMedical HistoryHTNMedical HistoryDJDMedical History HypothyroidismMedical HistoryMild CRIMedical HistoryCHFMedical Kpwpthp5-6-1885 Bilateral lumbar medical branch blockSurgical HistoryLeg and ankleSurgical HistoryBackSurgical HistoryBoth ShouldersSurgical HistoryHandSurgical History NoseSurgical HistoryTumor removed from back that was in the vnzay55-08-2245 Surgical Historyleft hip ksyjrlpotug9-77-77Lsivplpd HistoryBilateral Cataract 2018Surgical HistoryLTJADON Lezama11/05/19Hospitalization HistoryFR- CHF, A-Fib04/2016 [facility] Other Consult note Author Vikas Mane [facility] January 10, 2022 12:35pmNote Date/TimeNov2021 9:20[place] [address] Neurology Consult Note Signed Patient: Tavo Wallis Jr MR# : [id number] : 1940 Acct:[id number] Age/Sex: 81 / M Adm Date: 2 Loc: 3T Room: [address] [place] [address] Type: ADM IN Attending Dr: Dharmesh Zavala DO Copies to: DO Opal Pollock,DO Dharmesh Zavala DO~ HPI Consult Date: 01/10/22 Automotive Finance Manager: Vikas Mane DO PMFSH Vaccinated for COVID-19?: [...] Esa Cardoso M.D.01/09/2022 10:11 AM Dictation Location: [facility]-03 Renal Ultrasound 01/10/22 05:00 IMPRESSION: No hydronephrosis. Impression dictated by: Esa Cardoso M.D.01/10/2022 9:07 AM Dictation Location: [place] [address] Assessment/Plan (1) Falls frequently: Assessment/Problem Details: HPI: [...] rapidly alternating movements. No limb dysmetria with ehvjpl-jrtj-qksglm testing. DATA REVIEW: MRI lumbar spine from [...] by Vikas Mane DO> 01/10/22 1235 [facility] Work Phone: Consult note Author Marv Urena [facility] January 10, 2022 11:32amNote Date/TimeNov2021 11:32[place] [id number] Cardiology Consult Note Signed Patient: Tavo Wallis Jr MR# : [id number] : 1940 Acct:[id number] Age/Sex: 81 / M Adm Date: 2 Loc: 3T Room: [address] [place] [address] Type: ADM IN Attending Dr: Dharmesh Zavala DO Copies to: DO Marv Catalan MD, [facility] Dharmesh Zavala, ~ Cardiology HPI History [...] He has adequate social support at home. [facility] Vaccinated for COVID-19?: Yes Medical History [...] x10E3/uL Lymph # (Auto) 1.0 (1.00-4.8) x10E3/uL Sutton # (Auto) 1.0 H (0.0-0.8) x10E3/uL Eos [...] Bradycardia, unspecified Documented By: Marv Urena MD, [facility] 2 1125 Signed By: <Electronically signed by [facility]everiano Urena> 01/10/22 1138 [facility] Work Phone: Consult note Author Frankie Reynolds [facility] January 13, 2022 10:45amNote Date/TimeNovember 2021 10:[place] [id number] Infect. Disease Consult Note Signed Patient: Tavo Wallis Jr MR# : [id number] : 1940 Acct:[id number] Age/Sex: 81 / M Adm Date: 2 Loc: Room: [address] [place] [address] Type: ADM IN Attending Dr: Raji Ennis [...] negative unless noted below or in HPI [facility] Attestation Statement: The following information was [...] Mg/4 Ml Vial) 1 mg IV-PUSH BID@0800,1600 [facility] Stop: 01/13/23 07:59 Last Admin: 01/13/22 09:43 Dose: 1 mg Docusate Sodium (Docusate 100 Mg Capsule) 100 mg PO BID [facility] Stop: 01/09/23 20:59 Last Admin: 01/13/22 09:43 Dose: 100 mg Fluticasone Propionate (Fluticasone Propionate [place] 120 [place]/16 Gm Bottle) 1 spray NARES-BOTH QHSPRN PRN Reason: Nasal Congestion Stop: 01/09/23 15:16 Magnesium Sulfate (Magnesium Sulf 2gm-*Swfi*) 2 gm in 50 mls @ 25 mls/hr IV DAILY PRN PRN Reason: Magnesium Level < 1.5 Stop: 01/09/23 14:40 Cefepime HCl (Maxipime) 2 gm in 50 mls @ 100 mls/hr IV Q12H [facility] Last Admin: 01/13/22 03:07 Dose: 100 mls/hr Levothyroxine Sodium (Levothyroxine 150 Mcg Tablet) 150 mcg PO DAILY@0630 [facility] Stop: 01/10/23 06:29 Last Admin: 01/13/22 06:26 Dose: 150 mcg Magnesium Hydroxide (Magnesium Hydroxide Susp 30 Ml Udc) 30 ml PO BID PRN PRN Reason: Constipation Stop: 01/09/23 14:40 Magnesium Oxide (Magnesium Oxide 400 Mg Tablet) 400 mg PO DAILY [facility] Stop: 01/10/23 08:59 Last Admin: 01/13/22 09:43 Dose: 400 mg Nitroglycerin (Nitroglycerin 0.4 Mg Tab.Subl) 0.4 mg SUBLINGUAL Q5MIN.X3 PRN PRN Reason: Chest Pain Stop: 01/09/23 14:40 Pom Eszopiclone 3 Mg (Tablet) 3 mg PO HS [facility] Stop: 01/11/23 21:59 Last Admin: 01/12/22 22:51 Dose: 3 mg Nystatin (Nystatin 100,000 Unit/Gram Powder 15 Gm Bottle) 1 applic TOPICAL TID [facility] Stop: 01/09/23 21:59 Last Admin: 01/13/22 [...] 20 Meq Tab.Er.Prt) 20 meq PO QPM [facility] Stop: 01/09/23 20:59 Last Admin: 01/12/22 22:51 Dose: 20 meq Sodium Chloride (Sodium Chloride 0.9 % 10 Ml Syringe) 0 ml IV-PUSH PRN PRN PRN Reason: Flush Stop: 01/09/23 09:37 Last Admin: 01/10/22 23:31 Dose: 10 ml Sodium Chloride (Sodium Chloride 0.9 % 10 Ml Syringe) 0 ml IV-PUSH QSHIFT [facility] Stop: 01/09/23 21:59 Last Admin: 01/13/22 [...] by MD Frankie Reynolds> 01/13/22 1045 [facility] Work Phone: Consult note Author Bayron farnsworth [facility] HospitalNote Date/TimeMay 2024 2:[place] [address] Urology Consult Note Signed Patient: Tavo Wallis Jr MR# : [id number] : 1940 Acct:[id number] Age/Sex: 83 / M Adm Date: 5 Loc: Room: [address] [place] [address] Type: ADM IN Attending Dr: Mario Jordan [...] done and negative except as per HPI [facility] Medical History Insomnia Hypothyroidism Hypertension Constipation BPH [...] drinks a day >6 Social History Comments: [facility] Meds Medications and Allergies Allergies [...] in place with clear yellow urine 22 [place] three-way Skin: Warm and dry Extremities: No [...] Neut % (Auto) 90.2, Lymph %(Auto) 2.7, Sutton % (Auto) 6.8, Eos % (Auto) 0.1, Baso % (Auto) 0.2, Nucleat RBC Rel Count 0.1, Neut# (Auto) 24.1 H, Lymph # (Auto) 0.7 L, Sutton # (Auto) 1.8 H, Eos # (Auto) [...] % (Auto) N/A, Lymph % (Auto) N/A, Sutton % (Auto) N/A, Eos % (Auto) N/A, Baso % (Auto) N/A, Nucleat RBC Rel Count N/A, Neut # (Auto) N/A, Lymph # (Auto) N/A, Sutton # (Auto) N/A, Eos # (Auto) N/A, [...] Turbid A, Urine pH , Ur Specific Weatherby 1.020,Urine Protein , Urine Glucose (UA) , [...] % (Auto) 93.8, Lymph % (Auto) 4.2, Sutton % (Auto) 0.4, Eos % (Auto) 1.3, Baso % (Auto) 0.3, Nucleat RBC Rel Count 0.2, Neut # (Auto)6.3, Lymph # (Auto) 0.3 L, Sutton # (Auto) 0.0, Eos # (Auto) 0.1, [...] by Bayron Tom MD> 07/13/24 1449 [facility] Work Phone: Consult note Author Bryce Villeda [facility] HospitalNote Date/TimeMay 2024 12:[place] [phone] General Surgery Consult Note Signed Patient: Tavo Wallis Jr MR# : [id number] : 1940 Acct:[id number] Age/Sex: 83 / M Adm Date: 5 Loc: 4 Room: [address] [place] [address] Type: ADM IN Attending Dr: Mario Jordan MD Copies to: MD Sandip Fajardo DO~ History of Present Illness Date of consult: 07/14/2024 Requesting/Attending Provider: Mario Jordan MD History of present illness: Tavo is an 83-year-old male with multiple medical conditions including atrialfibrillation, hypothyroid, hypertension, CHF, who presented to the ER from [facility] for hematuria. The patient was admitted [...] trauma that may have caused the injury. [facility] Medical History Insomnia Hypothyroidism Hypertension Constipation BPH [...] drinks a day >6 Social History Comments: [facility] rehab Allergies & Medications Medications [...] 500 Mg Tablet) 500 mg PO TID [facility] Stop: 07/12/25 21:59 Last Admin: 07/14/24 [...] 50 mls @ 12.5 mls/hr IV Q12H [facility] Last Admin: 07/14/24 09:05 Dose: 12.5 [...] 3 (Mg Tablet)) 3 mg PO QHS [facility] Stop: 07/20/25 21:59 Oxycodone/Acetaminophen (Oxycodone/Acetaminophen 5-325 Mg Tablet) 1 tab PO Q4H PRN PRN Reason: Pain Scale 4 - 7 Last Admin: 07/13/24 22:05 Dose: 1 tab Polyethylene Glycol (Polyethylene Glycol 3350 17 Gm Powd.Pack) 17 gm PO BID [facility] Stop: 07/14/25 10:04 Potassium Chloride (Potassium Chloride Er 20 Meq Tab.Er.Prt) 20 meq PO DAILY [facility] Stop: 07/13/25 08:59 Last Admin: 07/14/24 09:05 Dose: 20 meq Sennosides (Sennosides Syrup 8.8 Mg/5 Ml Udc) 8.8 mg PO BID [facility] Stop: 07/14/25 10:04 Sodium Chloride (Sodium [...] Neut % (Auto) 84.9, Lymph %(Auto) 7.4, Sutton % (Auto) 6.1, Eos % (Auto) 1.4, Baso % (Auto) 0.2, Nucleat RBC Rel Count 0.1, Neut# (Auto) 13.3 H, Lymph # (Auto) 1.2, Sutton # (Auto) 1.0 H, Eos # (Auto) [...] Neut % (Auto) 90.2, Lymph %(Auto) 2.7, Sutton % (Auto) 6.8, Eos % (Auto) 0.1, Baso % (Auto) 0.2, Nucleat RBC Rel Count 0.1, Neut# (Auto) 24.1 H, Lymph # (Auto) 0.7 L, Sutton # (Auto) 1.8 H, Eos # (Auto) [...] % (Auto) N/A, Lymph % (Auto) N/A, Sutton % (Auto) N/A, Eos % (Auto) N/A, Baso % (Auto) N/A, Nucleat RBC Rel Count N/A, Neut # (Auto) N/A, Lymph # (Auto) N/A, Sutton # (Auto) N/A, Eos # (Auto) N/A, [...] Turbid A, Urine pH , Ur Specific Weatherby 1.020,Urine Protein , Urine Glucose (UA) , [...] % (Auto) 93.8, Lymph % (Auto) 4.2, Sutton % (Auto) 0.4, Eos % (Auto) 1.3, Baso % (Auto) 0.3, Nucleat RBC Rel Count 0.2, Neut # (Auto)6.3, Lymph # (Auto) 0.3 L, Sutton # (Auto) 0.0, Eos # (Auto) 0.1, [...] signed by Bryce Villeda DO> 07/14/[address] [facility] Work Phone: Consult note Author Frankie Reynodls [facility] HospitalNote Date/TimeMay 2024 9:59[place] [id number] Infect. Disease Consult Note Signed Patient: Tavo Wallis Jr MR# : [id number] : 1940 Acct:[id number] Age/Sex: 84 / M Adm Date: 5 Loc: Room: [address] [place] [address] Type: ADM IN Attending Dr: Mario Jordan MD Copies to: MD Sandip Fajardo MD~ [facility] Data of Consult Consult date: 07/15/24 Requesting [...] negative unless noted below or in HPI [facility] Medical History Insomnia Hypothyroidism Hypertension Constipation BPH [...] 500 Mg Tablet) 500 mg PO TID [facility] Stop: 07/12/25 21:59 Last Admin: 07/15/24 [...] 40 Mg Tablet) 40 mg PO DAILY [facility] Stop: 07/13/25 08:59 Last Admin: 07/15/24 08:33 Dose: 40 mg Bumetanide (Bumetanide 1 Mg Tablet) 1 mg PO DAILY@0800 [facility] Stop: 07/15/25 07:59 Last Admin: 07/15/24 08:33 Dose: 1 mg Vancomycin HCl 1.25 gm/ (Dextrose) 275 mls @ 183.333 mls/hr IV Q12H [facility] Stop: 07/13/25 17:59 Last Admin: 07/15/24 09:47 Dose: 183.33 mls/hr Cefepime HCl (Maxipime) 2 gm in 50 mls @ 12.5 mls/hr IV Q12H [facility] Last Admin: 07/15/24 08:34 Dose: 12.5 mls/hr Levothyroxine Sodium (Levothyroxine 150 Mcg Tablet) 150 mcg PO DAILY.0630 [facility] Stop: 07/13/25 06:29 Last Admin: 07/15/24 08:33 Dose: 150 mcg Magnesium Oxide (Magnesium Oxide 400 Mg Tablet) 400 mg PO DAILY [facility] Stop: 07/13/25 08:59 Last Admin: 07/15/24 08:33 Dose: 400 mg Eszopiclone 3 Mg (Tablet) 3 mg PO QHS [facility] Stop: 07/12/25 21:59 Last Admin: 07/14/24 23:17 Dose: Not Given Pom (Eszopiclone 3 (Mg Tablet)) 3 mg PO QHS [facility] Stop: 07/20/25 21:59 Oxycodone/Acetaminophen (Oxycodone/Acetaminophen 5-325 Mg Tablet) 1 tab PO Q4H PRN PRN Reason: Pain Scale 4 - 7 Last Admin: 07/13/24 22:05 Dose: 1 tab Polyethylene Glycol (Polyethylene Glycol 3350 17 Gm Powd.Pack) 17 gm PO BID [facility] Stop: 07/14/25 10:04 Last Admin: 07/15/24 08:17 Dose: Not Given Potassium Chloride (Potassium Chloride Er 20 Meq Tab.Er.Prt) 20 meq PO DAILY [facility] Stop: 07/13/25 08:59 Last Admin: 07/15/24 08:33 Dose: 20 meq Sennosides (Sennosides Syrup 8.8 Mg/5 Ml Udc) 8.8 mg PO BID [facility] Stop: 07/14/25 10:04 Last Admin: 07/15/24 [...] @ 12.5 mls/hr IV Q12H [facility] Rx#: [id number] Vancomycin 1.25 gm In Dextrose 275 / 550 5 % in Water 250 ml @ 183.333 mls/hr IV Q12H [facility] Rx#:[id number] Oral 860 / 1110 0 / 0 [...] signed by MD Frankie Reynolds> 07/15/[address] [facility] Work Phone: Evaluation noteNo assessment information available [facility] Work Phone: Evaluation noteNo InformationNort [employer] Other Evaluation note* Diagnosis Onset Date Resolution Status Acute decompensated heart failure acuteAcute exacerbation of chronic low back painacuteElevated troponinacuteFall acuteHypoxemiaacute [facility] Work Phone: Evaluation note* Diagnosis Onset Date Resolution Status Acute decompensated heart failure acuteAcute exacerbation of chronic low back [id number] respiratory failure with hypoxiaacuteAltered mental statusacuteAnasarcaacute Bladder retentionacuteBradycardiaacuteConstipationacuteDifficulty walkingacute Elevated troponinacuteFallacuteFalls frequentlyacuteFeveracuteGeneralized weaknessacuteHFrEF (heart failure with reduced ejection fraction)acuteHypoxemia acuteImpaired activities of daily livingacuteMyxopapillary ependymomaacute Pleural effusionacuteSleep apneaacuteAtrial fibrillationchronicHypertension chronic [facility] Work Phone: Evaluation note* Diagnosis Chronic atrial fibrillation (Multi) Atrial fibrillation Essential hypertension, benign Heart failure, NYHA class 2 (Multi) Hyperlipidemia, unspecified hyperlipidemia type documented in this encounter [facility] Work Phone: Evaluation note* Author Mayra Ponce [facility] HospitalAuthoredJuly 2023 10:21amThe above note written by ROSALIE Quiroga acting as human recorder, note dictated by Dr. Opal Ga. 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 Primary hypertension Unspecified essential hypertension Mixed hyperlipidemia BMI 30.0-30.9,adult Former smoker Personal history of tobacco use, presenting hazards to health documented in this encounter [facility] Work Phone: Evaluation note* Diagnosis Lumbar stenosis with neurogenic claudication- Primary Spinal stenosis, lumbar region, with neurogenic claudication Longstanding persistent atrial fibrillation (HCC) Cardiomyopathy, unspecified type (HCC) 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, lumbar region, with neurogenic claudication [facility] Diagnosis Pain due to onychomycosis of toenail of left foot- Primary Pain due to onychomycosis of toenail of right foot Localized edema Edema Decreased pedal pulses Other symptoms involving cardiovascular system longterm (current) use of anticoagulants Long-term (current) use of anticoagulants [facility] Author Dharmesh Zavala [facility] January 09, 2022 3:30pmNote Date/TimeNov2021 3:30[place] [address] Hospitalist H&P Signed Patient: Tavo Wallis Jr MR# : [id number] : 1940 Acct:[id number] Age/Sex: 81 / M Adm Date: 2 Loc: Room: [address] [place] [address] Type: ADM IN Attending Dr: Dharmesh Zavala [...] that he had seen a urologist in [place] recently. Patient used to be on a number of prostate medications but apparently they were stopped because they are not doing what they are supposed to be doing. The patient andhis daughter have a discussion about what urology was doing for the situation without finding a specific answer. Patient also describes that he has been veryconstipated lately and takes an unspecified tcsz-qfj-nuwidnr generic stool softener. His daughter does point [...] radiofrequency ablations by pain management doctor in [place]. Review of Systems Review of Systems Review [...] % (Auto) 13.5 % (.) 01/09/22 10:36 Sutton % (Auto) 14.2 % (.) 01/09/22 10:36 Eos % (Auto) 0.1 % (.) 01/09/22 10:36 Baso % (Auto) 1.0 % (.) 01/09/22 10:36 Neut # (Auto) 4.3 x10E3/uL (1.8-7.7) 01/09/22 10:36 Lymph # (Auto) 0.8 x10E3/uL (1.00-4.8) L 01/09/22 10:36 Sutton # (Auto) 0.9 x10E3/uL (0.0-0.8) H 01/09/22 [...] pH 5.5 (5.0-9.0) 01/09/22 12:42 Ur Specific Weatherby 1.018 (1.001-1.030) 01/09/22 12:42 Urine Protein Trace [...] lumbar spine. Documented By: Dharmesh Zavala DO [id number] Signed By: <Electronically signed by Dharmesh Zavala DO> 01/09/22 5194 [facility] Work Phone: History and physical note Author Mitchell Reyes [facility] HospitalNote Date/TimeJanuary 2024 3:49pmAmy [place] [id number] Hospitalist H&P Signed Patient: Tavo Wallis Jr MR# : [id number] : 1940 Acct:[id number] Age/Sex: 83 / M Adm Date: 5 Loc: 3T Room: [address] [place] [address] Type: ADM IN Attending Dr: Mitchell Reyes MD Copies to: MD Opal Peters,DO~ HPI DATE OF EXAMINATION: 03/10/24 HISTORY OF PRESENT ILLNESS: Patient is a 89-year-old male, who was well until approximately 2 weeks ago, when he underwent spinal decompression surgery in [facility] about 2 weeks prior to [...] pressure measured ultrasonographically is fairly normal at [id number] cc water. LV contractility is slightly decreased. [...] Dyslipidemia Gout Sleep apnea Obesity class I [facility] Medical History Insomnia Hypothyroidism Hypertension Constipation BPH [...] % (Auto) 11.9 % (.) 03/10/24 10:00 Sutton % (Auto) 9.2 % (.) 03/10/24 10:00 Eos % (Auto) 5.9 % (.) 03/10/24 10:00 Baso % (Auto) 1.4 % (.) 03/10/24 10:00 Nucleat RBC Rel Count 0.0 /100 WBC (0-0.5) 03/10/24 10:00 Neut # (Auto) 6.1 x10E3/uL (1.8-7.7) 03/10/24 10:00 Lymph # (Auto) 1.0 x10E3/uL (1.00-4.8) 03/10/24 10:00 Sutton # (Auto) 0.8 x10E3/uL (0.0-0.8) 03/10/24 10:00 [...] by Mitchell Reyes MD> 03/10/24 1549 [facility] Work Phone: History and physical note Author Mario Jordan [facility] HospitalNote Date/TimeMay 2024 6:49pm[place] [address] Hospitalist H&P Signed Patient: Tavo Wallis Jr MR# : [id number] : 1940 Acct:[id number] Age/Sex: 83 / M Adm Date: 5 Loc: Room: [address] [place] [address] Type: ADM IN Attending Dr: Mario Jordan MD Copies to: MD Sandip Fajardo Ramona DO~ HPI DATE OF EXAMINATION: 07/12/24 CHIEF COMPLAINT: Hematuria HISTORY OF PRESENT ILLNESS: This is a 83-year-old male with significant past medical history of A-fib, hypothyroidism, hypertension, BPH on chronic Chou since March 2024 exchangingevery month, hyperlipidemia, gout, cardiomyopathy, history of CHF, was sent [facility] ED from [facility] for chief concern for hematuria. Patient [...] negative unless noted below or in HPI [facility] Medical History Insomnia Hypothyroidism Hypertension Constipation BPH [...] % (Auto) 4.2 % (.) 07/12/24 15:00 Sutton % (Auto) 0.4 % (.) 07/12/24 15:00 Eos % (Auto) 1.3 % (.) 07/12/24 15:00 Baso % (Auto) 0.3 % (.) 07/12/24 15:00 Nucleat RBC Rel Count 0.2 /100 WBC (0-0.5) 07/12/24 15:00 Neut # (Auto) 6.3 x10E3/uL (1.8-7.7) 07/12/24 15:00 Lymph # (Auto) 0.3 x10E3/uL (1.00-4.8) L 07/12/24 15:00 Sutton # (Auto) 0.0 x10E3/uL (0.0-0.8) 07/12/24 15:00 [...] Urine pH (5.0-9.0) 07/12/24 16:19 Ur Specific Weatherby 1.020 (1.001-1.030) 07/12/24 16:19 Urine Protein mg/dL [...] gout, cardiomyopathy, history of CHF, was sent [facility] from [facility] for chief concern for hematuria. Patient [...] signed by Mario Jordan MD> 07/12/[address] [facility] Work Phone: History of Present illness Narrative* The patient states he has been generally stable since the last visit. Comorbid Illnesses: hypertension. * Symptoms: denies chest pain at rest, denies exertional chest pain, denies dyspnea, denies fatigue, stable exercise intolerance, denies palpitations, denies edema, denies orthopnea, denies dizziness and denies orthostatic dizziness. * Disease Monitoring: [facility] [employer] Work Phone: History of Present illness Narrative* The patient states he has been generally stable since the last visit. Comorbid Illnesses: hypertension. * Symptoms: denies chest pain at rest, denies exertional chest pain, denies dyspnea, denies fatigue, stable exercise intolerance, denies palpitations, denies edema, denies orthopnea, denies dizziness and denies orthostatic dizziness. * Disease Monitoring: [facility] Work Phone: History of Present illness Narrative* [...] is not doing well with his goals. [facility] 250 DO Work Phone: History of Present [...] not doing well with his goals. [facility] Work Phone: Hospital Discharge instructions Additional Instructions Alf Facility to manage care: - Full code [...] to void, chou catheter removed on 01/16[facility] Work Phone: Hospital Discharge instructions [...] fall precautions Care to be managed by [facility] Work Phone: Hospital Discharge instructions [...] fall precautions Care to be managed by [facility] Work Phone: Progress note Author Dharmesh Zavala [facility] January 10, 2022 8:54pmNote Date/TimeNov2021 8:54pm[place] [address] Hospitalist Progress Note Signed Patient: Tavo Wallis Jr MR# : [id number] : 1940 Acct:[id number] Age/Sex: 81 / M Adm Date: 2 Loc: Room: 8X0220-2 Type: ADM IN Attending Dr: Dharmesh Zavala DO Copies to: ~ Date of Service: 01/10/2022 Subjective Subjective Narrative: When I entered the room the patient tells me that he is getting a pain in the thighs on the top of his legs. He does mention that the people in [place] told me that was due to the [...] Propionate 1 spray 01/09/22 15:17 Fluticasone Propionate [place] 120 [place]/16 Gm Bottle NARES-BOTH 01/09/23 15:16 QHS PRN [...] 01/09/22 22:00 Eszopiclone PO 01/09/23 21:59 HS [facility] Nystatin 1 applic 01/09/22 22:00 01/10/22 [...] signed by Dharmesh Zavala DO> 01/10/222053 [facility] Work Phone: Progress note Author Mani Dickens [facility] January 11, 2022 5:02pmNote Date/TimeNov2021 8:[address] [address] Neurology Progress Note Signed Patient: Tavo Wallis Jr MR# : [id number] : 1940 Acct:[id number] Age/Sex: 81 / M Adm Date: 2 Loc: 3T Room: [address] [place] [address] Type: ADM IN Attending Dr: Raji Ennis [...] knee to all modalities. CEREBELLAR EXAM: * Wupscm-fg-icni and alternating movements are intact and normal in bilateral upper extremities * Lvms-ve-fdwq and alternating movements are intact and normal [...] Therapy Recommendations: OT Recommendations OT Recommended Discharge Alf Facility Location OT Recommended Services at Physical Therapy,Occupational Therapy Discharge PT Recommendations PT Recommended Discharge Alf Facility Location PT Recommended Services at Physical [...] the plan of care and confirmed the OUTREACH DIRECTOR note The patient is an 81-year-old man [...] by MD Mani Dickens> 01/11/22 170 [facility] Work Phone: Progress note Author W Be Mcintyre [facility] January 11, 2022 2:09pmNote Date/TimeNov2021 2:09pm[place] [address] Cardiology Progress Note Signed Patient: Tavo Wallis Jr MR# : [id number] : 1940 Acct:[id number] Age/Sex: 81 / M Adm Date: 2 Loc: Room: [address] [place] [address] Type: ADM IN Attending Dr: Raji Ennis [...] % (Auto) 73.8 Lymph % (Auto) 13.7 Sutton % (Auto) 9.6 Eos % (Auto) 2.2 Baso % (Auto) 0.7 Neut # (Auto) 6.3 Lymph # (Auto) 1.2 Sutton # (Auto) 0.8 Eos # (Auto) 0.2 [...] by Bhupinder Mcintyre DO> 01/11/22 1409 [facility] Work Phone: Progress note Author Raji Ennis [facility] January 11, 2022 5:04pmNote Date/TimeNov2021 5:04pm[place] [address] Hospitalist Progress Note Signed Patient: Tavo Wallis Jr MR# : [id number] : 1940 Acct:[id number] Age/Sex: 81 / M Adm Date: 2 Loc: Room: [address] [place] [address] Type: ADM IN Attending Dr: Raji Ennis [...] Propionate 1 spray 01/09/22 15:17 Fluticasone Propionate [place] 120 [place]/16 Gm Bottle NARES-BOTH 01/09/23 15:16 QHS PRN [...] prophylaxis Documented By: Raji Ennis MD 01/11/22 0387 Signed By: <Electronically signed by Raji Ennis MD> 01/11/22 1703 [facility] Work Phone: Progress note Author Mani Dickens [facility] January 12, 2022 4:10pmNote Date/TimeNov2021 8:19[place] [id number] Neurology Progress Note Signed Patient: Tavo Wallis Jr MR# : [id number] : 1940 Acct:[id number] Age/Sex: 81 / M Adm Date: 2 Loc: Room: [address] [place] [address] Type: ADM IN Attending Dr: Raji Ennis [...] extremities * Unable to test finger-nose or tzge-cb-jerd due to drowsiness REFLEX EXAM: * 1 [...] Therapy Recommendations: OT Recommendations OT Recommended Discharge Alf Facility Location OT Recommended Services at Physical Therapy,Occupational Therapy Discharge PT Recommendations PT Recommended Discharge Alf Facility Location PT Recommended Services at Physical [...] the plan of care and confirmed the OUTREACH DIRECTOR note The patient is an 81-year-old man [...] by MD Mani Dickens> 01/12/22 1610 [facility] Work Phone: Progress note Author Raji Ennis [facility] January 12, 2022 4:38pmNote Date/TimeNov2021 4:38pm[place] [address] Hospitalist Progress Note Signed Patient: Tavo Wallis Jr MR# : [id number] : 1940 Acct:[id number] Age/Sex: 81 / M Adm Date: 2 Loc: Room: [address] [place] [address] Type: ADM IN Attending Dr: Raji Ennis [...] Propionate 1 spray 01/09/22 15:17 Fluticasone Propionate [place] 120 [place]/16 Gm Bottle NARES-BOTH 01/09/23 15:16 QHS PRN [...] signed by Raji Ennis MD> 01/12/[address] [facility] Work Phone: Progress note Author W Be Mcintyre [facility] January 12, 2022 6:11pmNote Date/TimeNov2021 6:11pm[place] [address] Cardiology Progress Note Signed Patient: Tavo Wallis MR# : [id number] : 1940 Acct:[id number] Age/Sex: 81 / M Adm Date: 2 Loc: 3T Room: [address] [place] [address] Type: ADM IN Attending Dr: Raji Ennis [...] % (Auto) 76.3 Lymph % (Auto) 12.2 Sutton % (Auto) 9.1 Eos % (Auto) 1.9 Baso % (Auto) 0.5 Neut # (Auto) 7.7 Lymph # (Auto) 1.2 Sutton # (Auto) 0.9 H Eos # (Auto) [...] 2.9 Globulin (PEP) 2.4 Albumin/Globulin (PEP) 1.2 Rawxp-8-Xstiibtsl 0.4 Jdpys-3-Mnvwpqett 0.7 Beta Globulins 0.6 L Gamma Globulins 0.8 M-Franky Not observed PEP Note IgG 816 IgA 171 IgM 105 Serum Immunofixation 01/12/22 06:42 Corrected WBC Uncorrected WBC Count RBC Hgb Hct MCV MCH MCHC RDW Plt Count MPV Neut % (Auto) Lymph % (Auto) Sutton % (Auto) Eos % (Auto) Baso % (Auto) Neut # (Auto) Lymph # (Auto) Sutton # (Auto) Eos # (Auto) Baso # (Auto) Nucleated RBC % (auto) PHA Creatinine Clear Sodium Potassium Chloride Carbon Dioxide Anion Gap BUN Creatinine Est GFR ( Amer) Est GFR (Non-Af Amer) Glucose Calcium C-Reactive Prot, Quant 8.4 H Serum Total Protein Albumin (Send Out) Globulin (PEP) Albumin/Globulin (PEP) Vgnsx-5-Hmsdjaoru Xjupm-2-Vfytsbggv Beta Globulins Gamma Globulins M-Franky PEP Note [...] by Bhupinder Mcintyre DO> 01/12/22 1811 [facility] Work Phone: Progress note Author Mani Dickens [facility] January 13, 2022 6:10pmNote Date/TimeNov2021 8:13[place] [address] Neurology Progress Note Signed with Addenda Patient: Tavo Wallis Jr MR# : [id number] : 1940 Acct:[id number] Age/Sex: 81 / M Adm Date: 2 Loc: Room: [address] [place] [address] Type: ADM IN Attending Dr: Raji Ennis [...] extremities * Unable to test finger-nose or grmn-ya-qeda due to drowsiness REFLEX EXAM: * 03/10 [...] Therapy Recommendations: OT Recommendations OT Recommended Discharge Alf Facility Location OT Recommended Services at Physical Therapy,Occupational Therapy Discharge PT Recommendations PT Recommended Discharge Alf Facility Location PT Recommended Services at Physical [...] signed by MEI Knight> 01/13/22 1520 [facility] Work Phone: Progress note Author Raji Ennis [facility] January 13, 2022 3:44pmNote Date/TimeNov2021 3:27pm[place] [address] Hospitalist Progress Note Signed Patient: Tavo Wallis Jr MR# : [id number] : 1940 Acct:[id number] Age/Sex: 81 / M Adm Date: 2 Loc: Room: [address] [place] [address] Type: ADM IN Attending Dr: Raji Ennis [...] Propionate 1 spray 01/09/22 15:17 Fluticasone Propionate [place] 120 [place]/16 Gm Bottle NARES-BOTH 01/09/23 15:16 QHS PRN [...] by Raji Ennis MD> 01/13/22 1544 [facility] Work Phone: Progress note Author Frankie Reynolds [facility] January 14, 2022 9:39amNote Date/TimeNov2021 9:39am[place] [address] Infect. Disease Progress Note Signed Patient: Tavo Wallis Jr MR# : [id number] : 1940 Acct:[id number] Age/Sex: 81 / M Adm Date: 2 Loc: Room: [address] [place] [address] Type: ADM IN Attending Dr: Raji Ennis [...] Appearance Clear Urine pH 5.5 Ur Specific Weatherby 1.012 Urine Protein 30 H Urine Glucose [...] 300 Mg Tablet) 300 mg PO DAILY [facility] Stop: 01/10/23 08:59 Last Admin: 01/14/22 08:04 Dose: 300 mg Apixaban (Apixaban 5 Mg Tablet) 5 mg PO BID [facility] Stop: 01/09/23 20:59 Last Admin: 01/14/22 08:04 Dose: 5 mg Atorvastatin Calcium (Atorvastatin 40 Mg Tablet) 40 mg PO QHS [facility] Stop: 01/09/23 21:59 Last Admin: 01/13/22 21:26 Dose: 40 mg Bisacodyl (Bisacodyl 10 Mg Supp.Rect) 10 mg ID DAILY PRN PRN Reason: Constipation Stop: 01/09/23 14:40 Bisacodyl (Bisacodyl 5 Mg Tablet.Dr) 10 mg PO DAILY PRN PRN Reason: Constipation Stop: 01/09/23 14:40 Last Admin: 01/13/22 21:26 Dose: 10 mg Bumetanide (Bumetanide 1 Mg Tablet) 1 mg PO BID@0800,1600 [facility] Stop: 01/13/23 15:59 Docusate Sodium (Docusate 100 Mg Capsule) 100 mg PO BID [facility] Stop: 01/09/23 20:59 Last Admin: 01/14/22 08:03 Dose: 100 mg Fluticasone Propionate (Fluticasone Propionate [place] 120 [place]/16 Gm Bottle) 1 spray NARES-BOTH QHSPRN PRN Reason: Nasal Congestion Stop: 01/09/23 15:16 Magnesium Sulfate (Magnesium Sulf 2gm-*Swfi*) 2 gm in 50 mls @ 25 mls/hr IV DAILY PRN PRN Reason: Magnesium Level < 1.5 Stop: 01/09/23 14:40 Cefepime HCl (Maxipime) 2 gm in 50 mls @ 100 mls/hr IV Q12H [facility] Last Admin: 01/14/22 03:05 Dose: 100 mls/hr Vancomycin HCl 1.25 gm/ (Dextrose) 275 mls @ 183.333 mls/hr IV Q24H [facility] Stop: 01/13/23 18:59 Last Infusion: 01/13/22 21:17 Dose: Infused Levothyroxine Sodium (Levothyroxine 150 Mcg Tablet) 150 mcg PO DAILY@0630 [facility] Stop: 01/10/23 06:29 Last Admin: 01/14/22 [...] 3 Mg (Tablet) 3 mg PO HS [facility] Stop: 01/11/23 21:59 Last Admin: 01/13/22 [...] signed by MD Frankie Reynolds> 01/14/[address] [facility] Work Phone: Progress note Author [facility] January 14, 2022 5:43pmNote Date/TimeNov2021 5:43pm[place] [address] Hospitalist Progress Note Signed Patient: Tavo Wallis Jr MR# : [id number] : 1940 Acct:[id number] Age/Sex: 81 / M Adm Date: 2 Loc: Room: [address] [place] [address] Type: ADM IN Attending Dr: Raji Ennis [...] Propionate 1 spray 01/09/22 15:17 Fluticasone Propionate [place] 120 [place]/16 Gm Bottle NARES-BOTH 01/09/23 15:16 QHS PRN [...] signed by Raji Ennis MD> 01/14/221742 [facility] Work Phone: Progress note Author Frankie Reynolds [facility] January 15, 2022 12:21pmNote Date/TimeNov2021 12:21pm[place] [address] Infect. Disease Progress Note Signed Patient: Tavo Wallis Jr MR# : [id number] : 1940 Acct:[id number] Age/Sex: 81 / M Adm Date: 2 Loc: Room: [address] [place] [address] Type: ADM IN Attending Dr: Raji Ennis [...] 300 Mg Tablet) 300 mg PO DAILY [facility] Stop: 01/10/23 08:59 Last Admin: 01/15/22 [...] Dose: 100 mg Fluticasone Propionate (Fluticasone Propionate [place] 120 [place]/16 Gm Bottle) 1 spray NARES-BOTH QHSPRN PRN Reason: Nasal Congestion Stop: 01/09/23 15:16 Magnesium Sulfate (Magnesium Sulf 2gm-*Swfi*) 2 gm in 50 mls @ 25 mls/hr IV DAILY PRN PRN Reason: Magnesium Level < 1.5 Stop: 01/09/23 14:40 Levothyroxine Sodium (Levothyroxine 150 Mcg Tablet) 150 mcg PO DAILY@0630 [facility] Stop: 01/10/23 06:29 Last Admin: 01/15/22 06:38 Dose: Not Given Magnesium Hydroxide (Magnesium Hydroxide Susp 30 Ml Udc) 30 ml PO BID PRN PRN Reason: Constipation Stop: 01/09/23 14:40 Magnesium Oxide (Magnesium Oxide 400 Mg Tablet) 400 mg PO DAILY [facility] Stop: 01/10/23 08:59 Last Admin: 01/15/22 08:46 Dose: 400 mg Nitroglycerin (Nitroglycerin 0.4 Mg Tab.Subl) 0.4 mg SUBLINGUAL Q5MIN.X3 PRN PRN Reason: Chest Pain Stop: 01/09/23 14:40 Pom Eszopiclone 3 Mg (Tablet) 3 mg PO HS [facility] Stop: 01/11/23 21:59 Last Admin: 01/14/22 21:32 Dose: 3 mg Nystatin (Nystatin 100,000 Unit/Gram Powder 15 Gm Bottle) 1 applic TOPICAL TID [facility] Stop: 01/09/23 21:59 Last Admin: 01/15/22 [...] signed by MD Frankie Reynolds> 01/15/221220 [facility] Work Phone: Progress note Author Raji Ennis [facility] January 15, 2022 4:51pmNote Date/TimeNov2021 4:51pm[place] [address] Hospitalist Progress Note Signed Patient: Tavo Wallis Jr MR# : [id number] : 1940 Acct:[id number] Age/Sex: 81 / M Adm Date: 2 Loc: Room: [address] [place] [address] Type: ADM IN Attending Dr: Raji Ennis [...] Propionate 1 spray 01/09/22 15:17 Fluticasone Propionate [place] 120 [place]/16 Gm Bottle NARES-BOTH 01/09/23 15:16 QHS PRN [...] by Raji Ennis MD> 01/15/22 1651 [facility] Work Phone: Progress note Author Mitchell Reyes [facility] Date/TimeJanuary 2024 12:33pm [place] [address] Hospitalist Progress Note Signed Patient: Tavo Wallis Jr MR# : [id number] : 1940 Acct:[id number] Age/Sex: 83 / M Adm Date: 5 Loc: 3T Room: [address] [place] [address] Type: ADM IN Attending Dr: Mitchell Reyes [...] lumbar decompression surgery 2 weeks ago in [facility]. No complications otherwise. PT OT and [...] Tablet PO 03/11/25 06:29 Not Given DAILY@0630 [facility] Eszopiclone 3 Mg 3 mg 03/10/24 22:00 03/11/24 00:18 Tablet PO 03/10/25 21:59 Not Given QHS [facility] Oxycodone/Acetaminophen 1 tab 03/10/24 13:54 03/10/24 [...] by Mitchell Reyes MD> 03/11/24 1233 [facility] Work Phone: Progress note Author Michele Knight [facility]Note Date/TimeJanuary 2024 5:12pm[place] [address] Hospitalist Progress Note Signed Patient: Tavo Wallis Jr MR# : [id number] : 1940 Acct:[id number] Age/Sex: 83 / M Adm Date: 5 Loc: Room: [address] [place] [address] Type: ADM IN Attending Dr: Michele Knight [...] Tablet PO 03/11/25 06:29 Not Given DAILY@0630 [facility] Eszopiclone 3 Mg 3 mg 03/10/24 [...] lumbar decompression surgery 2 weeks ago in [facility]. No complications otherwise. PT OT and [...] signed by Michele Knight MD> 03/12/241711 [facility] Work Phone: Progress note Author Michele Knight [facility] Date/TimeJanuary 2024 6:00pm[place] [address] Hospitalist Progress Note Signed Patient: Tavo Wallis Jr MR# : [id number] : 1940 Acct:[id number] Age/Sex: 83 / M Adm Date: 5 Loc: 3T Room: [address] [place] [address] Type: ADM IN Attending Dr: Michele Knight [...] lumbar decompression surgery 2 weeks ago in [facility]. No complications otherwise. PT OT and [...] by Michele Knight MD> 03/13/24 1800 [facility] Work Phone: Progress note Author Michele Knight [facility] Date/TimeJanuary 2024 4:13pm[place] [address] Hospitalist Progress Note Signed Patient: Tavo Wallis Jr MR# : [id number] : 1940 Acct:[id number] Age/Sex: 83 / M Adm Date: 5 Loc: 3T Room: [address] [place] [address] Type: ADM IN Attending Dr: Michele Knight [...] lumbar decompression surgery 2 weeks ago in [facility]. No complications otherwise. PT OT and [...] by Michele Knight MD> 03/14/24 1613 [facility] Work Phone: Progress note Author Mario Jordan [facility] Date/TimeMay 2024 2:38pm[place] [address] Hospitalist Progress Note Signed Patient: Tavo Wallis Jr MR# : [id number] : 1940 Acct:[id number] Age/Sex: 83 / M Adm Date: 5 Loc: Room: [address] [place] [address] Type: ADM IN Attending Dr: Mario Jordan [...] gout, cardiomyopathy, history of CHF, was sent [facility] ED from [facility] for chief concern for hematuria. Patient [...] Daily weights - Heart healthy diet - PT/OT-assisted facility - Full code SCD for DVT prophylaxis Documented By: Mario Jordan MD 07/13/24 9613 Signed By: <Electronically signed by Mario Jordan MD> 07/13/24 1438 [facility] Work Phone: Progress note Author Mario Jordan [facility] Date/TimeMay 2024 12:47pm[place] [id number] Hospitalist Progress Note Signed Patient: Tavo Wallis Jr MR# : [id number] : 1940 Acct:[id number] Age/Sex: 83 / M Adm Date: 5 Loc: 4 Room: [address] [place] [address] Type: ADM IN Attending Dr: Mario Jordan [...] gout, cardiomyopathy, history of CHF, was sent [facility] ED from [facility] for chief concern for hematuria. Patient [...] Daily weights - Heart healthy diet - PT/OT-assisted facility - General Surgery consulted for abscess in the right mid leg lateral aspect - Full code SCD for DVT prophylaxis Documented By: Mario Jordan MD 07/14/24 1238 Signed By: <Electronically signed by Mario Jordan MD> 07/14/[address] [facility] Work Phone: progress note Author Bryce Villeda [facility]Note Date/TimeMay 2024 2:20pm[place] [address] Progress Note Signed Patient: Tavo Wallis Jr MR# : [id number] : 1940 Acct:[id number] Age/Sex: 84 / M Adm Date: 5 Loc: Room: [address] [place] [address] Type: ADM IN Attending Dr: Mario Jordan [...] <Electronically signed by Bryce Villeda DO> 07/15/[address] [facility] Work Phone: progress note Author Mario Jordan [facility] Date/TimeMay 2024 1:39pm[place] [address] Hospitalist Progress Note Signed Patient: Tavo Wallis Jr MR# : [id number] : 1940 Acct:[id number] Age/Sex: 84 / M Adm Date: 5 Loc: Room: [address] [place] [address] Type: ADM IN Attending Dr: Mario Jordan [...] Tab.Er.Prt PO 07/13/25 08:59 20 meq DAILY NAIBAL Administration Sennosides 8.8 mg 07/14/24 10:05 07/15/24 [...] gout, cardiomyopathy, history of CHF, was sent [facility] ED from [facility] for chief concern for hematuria. Patient [...] Daily weights - Heart healthy diet - PT/OT-assisted facility - Full code SCD for DVT prophylaxis Documented By: Mario Jordan MD 07/15/241334 Signed By: <Electronically signed by Mario Jordan MD> 07/15/24 1339 [facility] Work Phone: Progress note Author Frankie Reynolds [facility] Date/TimeMay 2024 9:28[place] [id number] Infect. Disease Progress Note Signed Patient: Tavo Wallis Jr MR# : [id number] : 1940 Acct:[id number] Age/Sex: 84 / M Adm Date: 5 Loc: Room: [address] [place] [address] Type: ADM IN Attending Dr: Mario Jordan [...] 500 Mg Tablet) 500 mg PO TID [facility] Stop: 07/12/25 21:59 Last Admin: 07/15/24 [...] 300 Mg Tablet) 300 mg PO DAILY [facility] Stop: 07/13/25 08:59 Last Admin: 07/15/24 08:33 Dose: 300 mg Apixaban (Apixaban 5 Mg Tablet) 5 mg PO BID [facility] Stop: 07/15/25 20:59 Last Admin: 07/15/24 22:09 Dose: 5 mg Atorvastatin Calcium (Atorvastatin 40 Mg Tablet) 40 mg PO DAILY [facility] Stop: 07/13/25 08:59 Last Admin: 07/15/24 08:33 Dose: 40 mg Bumetanide (Bumetanide 1 Mg Tablet) 1 mg PO DAILY@0800 [facility] Stop: 07/15/25 07:59 Last Admin: 07/15/24 08:33 Dose: 1 mg Cefepime HCl (Maxipime) 2 gm in 50 mls @ 12.5 mls/hr IV Q12H [facility] Last Admin: 07/15/24 20:05 Dose: 12.5 mls/hr Vancomycin HCl (Vancomycin) 1 gm in 250 mls @ 250 mls/hr IV Q24H [facility] Levothyroxine Sodium (Levothyroxine 150 Mcg Tablet) 150 mcg PO DAILY.0630 [facility] Stop: 07/13/25 06:29 Last Admin: 07/16/24 05:21 Dose: 150 mcg Magnesium Oxide (Magnesium Oxide 400 Mg Tablet) 400 mg PO DAILY [facility] Stop: 07/13/25 08:59 Last Admin: 07/15/24 08:33 Dose: 400 mg Eszopiclone 3 Mg (Tablet) 3 mg PO QHS [facility] Stop: 07/12/25 21:59 Last Admin: 07/15/24 [...] is just weak and is upper thighs. snf that he has been to on and off therapy only happens once a day and it sounds like he sits in a chair or bed for the rest of thetime. This is according to his family member. Documented By: Frankie Reynolds MD 07/16/24918 Signed By: <Electronically signed by MD Frankie Reynolds> 07/16/24927 [facility] Work Phone: Progress note Author Mario Jordan [facility]Note Date/TimeMay 2024 2:59pm[place] [address] Hospitalist Progress Note Signed Patient: Tavo Wallis Jr MR# : [id number] : 1940 Acct:[id number] Age/Sex: 84 / M Adm Date: 5 Loc: Room: [address] [place] [address] Type: ADM IN Attending Dr: Mario Jordan [...] Tablet PO 07/12/25 21:59 500 mg TID ANIBLA Administration Acetaminophen 650 mg 07/12/24 17:00 Acetaminophen [...] Tablet PO 07/12/25 21:59 3 mg QHS ANIABL Administration Pom (Eszopiclone 3 3 mg 07/20/24 [...] gout, cardiomyopathy, history of CHF, was sent [facility] ED from [facility] for chief concern for hematuria. Patient [...] Daily weights - Heart healthy diet - PT/OT-assisted facility - Full code SCD for DVT prophylaxis Documented By: Mario Jordan MD 07/16/241454 Signed By: <Electronically signed by Mario Jordan MD> 07/16/[address] [facility] Work Phone: Progress note Author Frankie Reynolds [facility]Note Date/TimeMay 2024 8:51[place] [address] Infect. Disease Progress Note Signed Patient: Tavo Wallis Jr MR# : [id number] : 1940 Acct:[id number] Age/Sex: 84 / M Adm Date: 5 Loc: 4 Room: 1G8880-4 Type: ADM IN Attending Dr: Mario Jordan [...] 500 Mg Tablet) 500 mg PO TID [facility] Stop: 07/12/25 21:59 Last Admin: 07/17/24 [...] 300 Mg Tablet) 300 mg PO DAILY [facility] Stop: 07/13/25 08:59 Last Admin: 07/17/24 08:15 Dose: 300 mg Apixaban (Apixaban 5 Mg Tablet) 5 mg PO BID [facility] Stop: 07/15/25 20:59 Last Admin: 07/17/24 08:15 Dose: 5 mg Atorvastatin Calcium (Atorvastatin 40 Mg Tablet) 40 mg PO DAILY [facility] Stop: 07/13/25 08:59 Last Admin: 07/17/24 08:15 Dose: 40 mg Bumetanide (Bumetanide 1 Mg Tablet) 1 mg PO DAILY@0800 [facility] Stop: 07/15/25 07:59 Last Admin: 07/17/24 08:15 Dose: 1 mg Cefepime HCl (Maxipime) 2 gm in 50 mls @ 12.5 mls/hr IV Q12H [facility] Last Admin: 07/17/24 08:15 Dose: 12.5 mls/hr Vancomycin HCl (Vancomycin) 1 gm in 250 mls @ 250 mls/hr IV Q24H [facility] Last Infusion: 07/16/24 12:00 Dose: Infused Levothyroxine Sodium (Levothyroxine 150 Mcg Tablet) 150 mcg PO DAILY.0630 [facility] Stop: 07/13/25 06:29 Last Admin: 07/17/24 08:15 Dose: 150 mcg Magnesium Oxide (Magnesium Oxide 400 Mg Tablet) 400 mg PO DAILY [facility] Stop: 07/13/25 08:59 Last Admin: 07/17/24 08:16 Dose: 400 mg Eszopiclone 3 Mg (Tablet) 3 mg PO QHS [facility] Stop: 07/12/25 21:59 Last Admin: 07/16/24 [...] <Electronically signed by MD Frankie Reynolds> 07/17/[address] [facility] Work Phone: Reason for referral (narrative)* Consultation (Routine) - AuthorizedSpecialtyDiagnoses / ProceduresReferred By Contact Referred To ContactCardiology Diagnoses Heart failure, NYHA class 2 (Multi) Procedures Follow Up In Cardiology Tavo Mcintyre DO [address] [facility] [address], [place] [place], [place] [id number] Tavo Mcintyre DO [address] [facility] [address], [facility] [address] [place] [address] Referral IDStatusReasonStart DateExpiration DateVisits RequestedVisits [id number]/ [facility] Work Phone: Rewzsg for referral (narrative)No reason for referral information availableUniversity Hospitals St. [facility] Work Phone: Chief Complaint * I [...] July 2021. 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 He denies any palpitations or [...] Reason for Visit Chief Complaint MEDICARE/[facility] Chief Complaint E03.9 I10 I48.91 fallReason for VisitAcute decompensated heart failure Acute exacerbation of chronic low back pain Elevated troponin Fall Hypoxemia Chief Complaint E03.9 I10 I48.91 fallReason for VisitAcute decompensated heart failure Acute exacerbation of chronic low back pain [id number] Acute respiratory failure with hypoxia Altered mental [...] Acute exacerbation of chronic low back pain [id number] Acute respiratory failure with hypoxia Altered mental [...] Acute exacerbation of chronic low back pain [id number] Acute respiratory failure with hypoxia Altered mental [...] May 28, 2024 8:2 5am I48.91,M48.062,Z48.811,G93.41,M54.[address] 2024 9:25am Chief Complaint Admit Date Lethargic March 10, 2024 11 :26am Z47.89 April 03, 2024 3 :19pm 148.91 N18.3 April 23, 2024 10:53am i11.0 i50.33 ga3.41 i48.91 r33.9 z48.811 April 30, 2024 8:20am R33.9 May 07, 2024 8:58 am I48.91, N18.3, I50.33, G93.41, M48.062 M arch 2024 10:45am I48.91,I11.0,I50.33,M48.062,Z48.811 [facility] h 2024 7:13am Z48.811 111.0 [...] G93.41, M48.062 M arch 2024 10:45am I48.91,I11.0,I50.33,M48.062,Z48.811 [facility] h 2024 7:13am Z48.811 111.0 [...] 8:58 am I48.91, N18.3, I50.33, G93.41, M48.062 [facility] 2024 10:45am I48.91,I11.0,I50.33,M48.062,Z48.811 [facility] 2024 [...] am I48.91, N18.3, I50.33, G93.41, M48.062 [facility] 20[facility] 10:45am I48.91,I11.0,I50.33,M48.062,Z48.811 [facility] 2024 7:13am Z48.811 111.0 May 28, [...] 11 :01am hospital f/u - subdural hematoma [facility] 2024 9:43am Chief Complaint Admit Date Urine drop-off September 14, 2024 10:5 0am lumbar pain September 18, 2024 3:12 pm recent uti, afib, chronic chou September 12:45pm Ref: Dr. Daily Perez UTI October 04, 2024 1:51 pm Fall October 05, 2024 9:1 3pm fallOctober 07, 2024 7:0 5am I62.9 October 31, 2024 11 :01am hospital f/u - subdural hematoma [facility] 2024 9:43am M81.0 November 29, 2024 [...] 11 :01am hospital f/u - subdural hematoma [facility] 2024 9:43am M81.0 November 29, 2024 [...] 11 :01am hospital f/u - subdural hematoma [facility] 2024 9:43am M81.0 November 29, 2024 [...] No April 05, 2023 4:20pm Date ActivatedDate WbubuhuzttbDcpkssju89/17/2024 7:35 AM Advance Directive Response Recorded Date/ Time Advance Directives No April 05, 2023 3:20pm Summary Purpose Additional Source Comments REASON FOR VISIT (unrecogniz ed section and content) ReasonCommentsAnnual [id number]-mn ClearanceLumbar fusionSpecialty Diagnoses / ProceduresReferred By ContactReferred To Contact Diagnoses Preop cardiovascular exam Procedures ECG 12 Lead Tavo Mcintyre DO [address] [facility] [address], [address] [place] [address] Phone: tel: fax: Referral IDStatusReasonStart DateExpiration DateVisits RequestedVisits [id number] / Procedures Referred By ContactReferred To Contact Diagnoses Degeneration of intervertebral disc of lumbar region, unspecified whether pain present Degeneration of intervertebral disc of lumbar region, unspecified whether pain present [M51.369] Procedures ID ARTHRODESIS POSTERIOR/PSTLAT TQ 1NTRSPC LUMBAR ID ARTHRODESIS PST/PSTLAT TQ 1NTRSPC EA ADDL NTRSPC ID POTTS FACETECTOMY & FORAMOTOMY 1 VRT SGM LUMBAR ID POTTS FACETECTOMY&FORAMOT 1 VRT SGM EA ADDL SGM ID AUTOGRAFT SPINE SURGERY LOCAL FROM SAME INCISION L2-5 Decompression and Non Instrumented Fusion L2-5 Decompression and Non Instrumented Fusion L2-5 Decompression and Non Instrumented Fusion L2-5 Decompression and Non Instrumented Fusion L2-5 Decompression and Non Instrumented Fusion Randi Burris MD [address] [place] [address] [place] [address] [facility] [address] [place] [address] Referral IDStatusReasonStart DateExpiration DateVisits RequestedVisits [id number] PatientDebridement of Nail Care Teams (unrecognized sec [...] DO Primary Care Provider Active Natacha Rodarte OUTREACH DIRECTOR-CAttending ProviderActive Team Status: Active Member Role Status [...] MemberRelationshipSpecialty Start DateEnd Date Opal Ga DO [facility]01/05/21 Team Status: Inactive Member Role Status Dates [...] Dates Bhupinder Mcintyre DO Specialist Active [facility] Care ProviderActive Team Status: Inactive Member Role Status Dates Opal Ga DO Primary Care Provide r, Attending Provider Active Start: September 21, 2023 End: September 21, 2023 Team Status: Inactive Member Role Status Wil Ga DO Primary Care Provide r, Attending Provider Active Start: December 27, 2023 End: December 27, 2023Team MemberRelationshipSpecialtyStart DateEnd Date Opal Ga DO [facility]01/05/21Team MemberRelationshipSpecialtyStart DateEnd Date Opal Ga [facility] Team Status: Inactive Member Role Status [...] 12, 2024 End: July 17sandhya Larry , OUTREACH DIRECTOR-COther ProviderActiveStart: July 12, 2024 End: July 17guanakito Gomez REGISTERED MAIL CLERK-BCOther ProviderActiveStart: July 12, 2024 End: July 17, [...] Tom MDOther ProviderActiveStart: 2024 Nkechi Larry , OUTREACH DIRECTOR-COther ProviderActiveStart: 2024 Ella Gomez REGISTERED MAIL CLERK-BCOther ProviderActiveStart: 2024 Bryce Villeda DOOther ProviderActiveStart: 2024 Jennifer Vargasending Provider, Other ProviderActiveStart: 2024 Team Status: Active Member Role Status Dates DO Jacqueline Baron Active PHYSICIAN NO FAMILYPrimary Care ProviderActive Team Status: Active Member Role Status Dates Melvi Qureshi BULLDOZER OPERATOR Emergency Provider Active S tart: 2024 [...] Start: September 18, 2024 End: September 18Clarisa Hassandecatur morgan hospitalshel[facility] Care ProviderActiveStart: September 18, 2024 End: September 18, 2024 Team Status: Inactive Member Role Status Dates Opal Ga DO Primary Care Provider Active Sta rt: September 24, 2024 End: September 24, 2024W Be Mcintyre DOAttending ProviderActiveStart: September 24, 2024 End: September 24, 2024 Team Status: Inactive Member Role Status Dates Opal aG DO Primary Care Provider Active Sta rt: October 04, 2024 End: October 04, 2024Mickari Reynolds MDAttending ProviderActiveStart: October 04, 2024 End: October 04, 2024 Team Status: Active Member Role Status Dates Oapl Ga DO Primary Care Provider Active Sta [...] Team Status: Inactive Member Role/Relationship Status Wil aG DO Primary Care Provider Active Sta [...] Sta rt: December 27, 2024 Cristy Prince OUTREACH DIRECTOR-CAttending ProviderActiveStart: December 27, 2024 Team Status: Inactive [...] section and content) DATE CREATED AUTHOR 07/09/2022 [facility] DATE CREATED AUTHOR AUTHOR'S ORGANIZ ATION 07/09/2022 [facility] DATE CREATED AUTHOR AUTHOR'S ORGANIZ ATION 07/16/2022 [facility] DATE CREATED AUTHOR AUTHOR'S ORGANIZ ATION 03/16/2024 [facility] DATE CREATED AUTHOR AUTHOR'S ORGANIZ ATION 08/04/2024 [facility] DATE CREATED AUTHOR AUTHOR'S ORGANIZ ATION 08/16/2024 [facility] DATE CREATED AUTHOR AUTHOR'S ORGANIZ ATION 10/20/2024 [facility] DATE CREATED AUTHOR AUTHOR'S ORGANIZ ATION 01/03/2025 [facility] Ordered Prescriptions (unrec ognized [...] for injection by adding 1 mL of statistical typist-supplied sterile diluent or sterile water for injection [...] or prosecute any alcohol or drug abuse patient.[facility] FOR RECORDS PERTAINING TO PATIENTS [...] BE BASED ON THE PRIMARY CLINICAL RECORDS. [facility]. provides no warranty or guarantee of the accuracy or completeness of information in this document.
[2025-01-26] MEDS: SENNOSIDES/DOCUSATE SODIUM 1 TAB TABLET 2 TAB PO (18:27)
[2025-01-26] MEDS: DILTIAZEM HCL 60 MG TABLET PO (18:27)
[2025-01-26] MEDS: CEFTAZIDIME 1,000 MG in 0.9 % SODIUM CHLORIDE 50 ML 100 MG IV (18:28)
[2025-01-26] MEDS: 0.9 % SODIUM CHLORIDE 250 ML 10 ML IV (18:30)
--- OUTSIDE RECORDS SUMMARY | 2025-01-26 19:07 | XMS_ITS | Continuity of Care Document ---
Author Organization [facility] Address [address] [place] [address] Phone Care Team Providers Care Safety Representative Name Role Phone Feliciano Ambrosio DO Primary Care Provider Jovany Stovall MD Attending Provider Keely Montoya APRN Attending Provider Sree Thao DO Emergency Provider Akash Mccartney MD Admit Provider Michele Knight MD Attending Provider Cristy Prince COOK FRY-C Attending Provider Liliana Miller DO Attending Provider [phone] Lea ePña DO Attending Provider [phone] Sha Pepe MD Attending Provider Mendy Bull MD Attending Provider [phone] Cherelle Funes MD Attending Provider Care Teams Patient Care [...] 2024 End: November 29, 2024Elenandrés Montoya , HARVINDERNAttenraven ProviderActiveStart: November 29, 2024 End: November 29, 2024 Visit Care Team Team Status: Inactive Member Role/Relationship Status Dates Feliciano Ambrosio DO Primary Care Provider Active Sta rt: December 04, 2024 End: December 04, 2024Elenandrés Montoya , HARVINDERNAttenraven ProviderActiveStart: December 04, 2024 End: December 04, 2024 Visit Care Team Team Status: Inactive Member Role/Relationship Status Dates Feliciano Ambrosio DO Primary Care Provider Active Sta rt: December 12, 2024 End: December 18lexSumi Richard ProviderActiveStart: December 12, 2024 End: December 18, 2024Akash Mccartney MDAdmit ProviderActiveStart: December 12, 2024 End: December 18, 2024Rabecka Knight MDAttending ProviderActiveStart: December 12, 2024 End: December 18, 2024 Visit Care Team Team Status: Active Member Role/Relationship Status Dates Feliciano Ambrosio DO Primary Care Provider Active Sta rt: December 27, 2024 OVIDIO LakeCAttenraven ProviderActiveStart: December 27, 2024 Visit Care Team [...] Provider Active Sta rt: January 04, 2025 Visit Care Team Team Status: Active Member Role/Relationship Status Mendy Bull MD Attending Provider Active Star t: January 25, 2025 Patient Care Team Team Status: Active Member Role/Relationship Status Dates Cherelle Funes MD Attending Provider Active Sta rt: January 26, 2025 Chief Complaint and Reason for Visit [...] for right heel stage 3 pressure injury. [facility] CenterWork Phone: [phone] [facility] [address]NqsclEnedelia Gomez APRNWork Phone: [phone] [address] [address] Health Concerns Concerns Start Date A [facility] screening has identified you as FRAIL or [...] Four Ways to Beat the Frailty Risk [email or web address]/ybljtymr-ihb-ekgqzzysqb/gbpa-rxboun-mbvx- ydut-ku-hyoc-the-fra ilty-risk Allergies, Adverse Reactions, Alerts Allergen Type Severity Reaction Last Updated Verified Status Comments fentanyl Allergy Unknown Dizziness, loopy Octobe r 2024 11:23am Yes Active indomethacinAllergyUnknownDizzinessOctcrittenden county hospital 2024 11:23amYesActivezolpidem AllergyUnknownConfusion, memory lossOctcrittenden county hospital 2024 11:23amYesActive PenicillinsAllergyUnknownWeaknessOctcrittenden county hospital 2024 11:98bhQvgJvaxeo4/5/25 - had a penicillin injection prior to [...] 10:09amQuestionAnswerDate RecordedHas the SDOH screening changed since admission?NOctober 14th, 2025 10:09am Assessment Value Date Recorded SDOH Follow [...] 2023 9:20amUnknownActiveHx of decompressive lumbar laminectomyAugust 2019 10:47zuPffqwdqXhhgta3676- with tumor resectionLow back painNovember 2021 12:29pmUnknownActiveSleep apneaAugust 2019 10:09amUnknownActivedoes not use equipmentRadicular low back painJuly 2024 2:42pmUnknownActiveFatigueJanuary 2024 3:06pm UnknownActiveCatheter-associated urinary tract infectionJuly 2024 1:12pm UnknownActiveChronic CHFOctober 2019 11:36amUnknownActiveMuscle pareses October 2023 12:23pmUnknownActiveMyxopapillary ependymomaAugust 2019 10:35ngBmbmuhuOlucdv9478Xvi related osteoporosisSeptember 2024 9:30am UnknownActiveBradycardiaNovember 2021 11:30amUnknownActiveEdemaOctober [...] 8:56am Unknow n Resolved Bacteremia due to EnterococcusMay 2024 8:57amUnknownResolvedImpaired activities of daily livingOctober 2019 10:53amUnknownResolvedBPH [...] mental statusSeptember 2019 11:15amUnknownResolvedDebilityOctober 2019 11:28amUnknownResolved Difficulty walkingJanuary 09, 2022 2:28pmUnknownResolvedHypertensionJuly 2023 8:40amUnknownResolvedConstipationNovember 2021 2:28pmUnknownResolved FallNovember 2021 11:43amUnknownResolvedFallAugust 2024 8:15pmUnknown ResolvedAtrial fibrillation with RVROctober 2024 2:14pmUnknownResolved Abrasion of arm, leftAugust 2024 8:15pmUnknownResolvedDehydrationSeptember 2019 1:02pmUnknownResolved Medications Medication Status Dose Units Route Directions Qty Days Refills S tart Date Stop Date End Date Reason(s) Instructions Adherence Bumetanide 1 mg tablet Discontinued 1 MG PO Alexander y 90 3April 2023 2:47pmJanuary 2024 10:17amEszopiclone 3 mg tablet Bgilgbtgzueq3WFJHVbekt at dxoxmus30361Uevoi 2023 2:47pmApril 2023 3:29pmInsomnia Insomnia, unspecifiedTrazodone 50 mg xpxjqzTqwrysnyndqh84JAREUowln at bedtime as needed for sgrzpezu467Ielxw 2023 2:49pmSeptember 2023 11:01am Eszopiclone 3 mg udfiskHfpximiffahj8XXPMYgfho at qckylxu29835Sgrda 2023 3:29pmSeptember 2023 11:01amInsomnia Insomnia, unspecifiedLevothyroxine (Synthroid) 150 mcg sktbswGnjasfemketg873GEK POEvery zsadent884Ncrpq 2023 12:40pmSeptember 2023 8:26amPotassium Chloride (Klor-Con M20) 20 mEq tablet,ER particles/andelyezLelylordrxsq11NXTPP Sfyfo663Wgujm 2023 11:00pmJanuary 2024 12:33pmAtorvastatin 40 mg erlfliGovqxtkuuukh27HSCIGnsub571Ymha 2023 1:09pmAugust 2024 6:31pm Levothyroxine (Synthroid) 150 mcg vtxdbmSgeuixowynym996RAUBHMenlh jnafiqg109 November 18, 2023 8:25amSeptember 2023 11:01amEszopiclone 3 mg tablet Dgedowywelle0OKGYUbgul at luxahox95977Kvcdqkhfw2023 11:01amJune 2024 9:33amInsomnia Insomnia, unspecifiedLevothyroxine (Synthroid) 150 mcg hlabeeGzurzi524JFEODIvxzn juhsqyd254Uixouqnzm2023 11:01amUnknownTrazodone 50 mg hilsccEilmmu26CILC Daily at bedtime as needed for hvxngvry828Mkemsdowi2023 11:01amUnknown Doxycycline Hyclate 100 mg aywhyaQdtbbcwgrkpo253AYWXQphkm bfxdf500Nlgeaxz2023 11:00pmDecember 2023 9:23amOpen wound of skin Other injury of unspecified body region, initial encounterSulfamethoxazole- Trimethoprim (Bactrim Ds) 800-160 mg ruybtpRpncwqwwaovp4AJKIDMxnvw hrawn708 December 22, 2023 11:00pmDecemb2023 9:23amOpen wound of skin Other injury of unspecified body region, initial encounterMupirocin 2 % ointment Cryjctmfzcdw2AFZTQBOSCKDYSFvpaa akbjt945Oddskmr2023 11:06amJanuary 2024 10:14amOpen wound of skin Other injury of unspecified body region, initial encounter1 application Externally Twice a dayEszopiclone 3 mg ymjphlImroxbjevude1HGFQMxfgz at gvbyiot24 2024 9:33amJune 2024 8:18amInsomnia Insomnia, unspecifiedCiprofloxacin Hcl (Cipro) 500 mg hhddwlHztvwdzmapaa595ZOAU Twice ykpzb65234Eltq2024 11:00pmJuly 2024 2:15pmEszopiclone 3 mg gdcnbjOqgvmyvhilhh9HMUJIplwz at oscwuel61952Saue2024 8:18amAugust 2024 6:28pmInsomnia Insomnia, unspecifiedNystatin 100,000 unit/gram mstuxgGaudab6CBTNGTFNKKXXYQemtz wanrc410Jkqt 2024 11:28amUnknownHydrocodone-Acetaminophen ([place]) 5-325 mg cqiqseIxdawextgusl0TDSOSJ6A as needed for hyry755Yrpgittty 2019September 2019 8:42amOther injury of unspecified body regionCephalexin (Keflex) 500 mg nhdgafpHkjrrxdxahei625CHOER95I78024Iqtxwxgw 2017 12:00amFebruary 2017 12:00amFebruary 2017 12:02amAtorvastatin 40 mg mucliaQzoiehuvuocg53MO POBedtimeAugust 2019 11:00pmOct2019 11:33amhyperlipidemia Allopurinol 300 mg bsxymmYupnseclqmrw141QHYMTxeowTzpbnt 2019 11:00pm January 04, 2020 11:34amEszopiclone (Lunesta) 3 mg hkszqlVvclxsrliklu4RMSZ Daily at bedtimeAugust 2019 11:00pmOct2019 11:33amMirabegron (Myrbetriq) 50 mg tablet extended release 24 inRblxjvbiwnqt04GZIAMmgug with lunchAugust 2019 11:00pmJanuary 04, 2020 11:34amApixaban (Eliquis) 5 mg vgreatCvpfbruupyqb1HTMVTllct dailyAugust 2019 11:00pmOct2019 11:18aba-zbfEzxwsgtlku-Kffohvvxf (Entresto) 24-26 mg zefmzlRvqdkbnbuoej5UMJYI Twice dailyAugust 2019 11:00pmOct2019 11:33amOn Hold: Resume on 12/27/19.Carvedilol 6.25 mg TabletDiscontinued6.25MGPOTwice dailyAugust 2019 11:00pmOct2019 11:33amheartLevothyroxine 150 mcg Tablet Ijguwsyligbe321NHSPEJjxryPuqkdp 2019 11:00pmOct2019 11:33am hypothyroidismBumetanide 1 mg VwxfagVlahqqbxsdck2JVTWLxsvtTzmhoh 2019 11:00pmOct2019 11:33amheart failureOn Hold: Resume on 12/26/19. Digoxin 125 mcg (0.125 mg) JbswvbQewszwaxypre995LBGPNAvxgpIpklrk 2019 11:00pmOct2019 11:33ama-fibMagnesium Oxide 400 mg magnesium Tablet Velmlltvszfq866LARQWboojUvssgu 2019 11:00Oct2019 11:33ama-fib Oxybutynin Chloride 10 mg Tablet Extended Release 90gbXysxseemfqev98NZALOitrp with lunchAugust 2019 11:00pmOct2019 11:34amUrinary symptoms Azelastine 137 mcg (0.1 %) Aerosol,SprayDiscontinuedINTRANASALAugust 2019 11:00pmAugust 2019 4:12pmAzelastine-Fluticasone 137-50 mcg/spray Gibson,Non-HxdxvjmUnqpbpgjdepg6OKODMJUGQLSJKNOUicxn dailygus2019 11:00pmDecember 24, 2019 10:02amAcetaminophen (Tylenol) 325 mg Tablet Nwnmzugkfqne384XPAQSxeen dailyAugust 2019 11:00pmSept2019 8:42ampainHydroxyzine Pamoate 50 mg AntysoiJsavcsbeogms41SESKH6H as needed for Muscle Vyzhw84Gndrnf 2019 11:00pmOct2019 11:33amDocusate Sodium (Dok) 100 mg HuwntbkDoxcjckmzvls223YZGBOinbm boygh13Pqumkp 31st, 2020 11:00pm January 04, 2020 11:33amHydroxyzine Pamoate 25 mg DjhxwydHyxijxwrappg59RQJRG7D as needed for Muscle Auuka07Bxqiba 2019 11:00pmOct2019 11:33am Oxycodone-Acetaminophen (Percocet) 5-325 mg tabletDiscontinued1 - 2TABPOEVERY 4- 6 HOURS as needed for pwnz0825Zxpnoowum2019 11:33am Presence of left artificial knee jointIpratropium-Albuterol 0.5 mg-3 mg(2.5 mg base)/3 mL solution for aicvfmgeqjmbFnixok1QWKXRKMBTMZXKsvoo times dailyOctober 2024 11:00pmUnknownBudesonide 0.5 mg/2 mL suspension for nebulizationActive 0.5MGINHALATIONTwice dailyOctober 2024 11:00pmUnknownAcetaminophen (Acetaminophen Extra Strength) 500 mg jxijiaZlnjvf1938SXTFGjure times daily as needed for painOctober 2024 11:00pmUnknownApixaban (Eliquis) 5 mg tablet Adzhgzlhavqz7ZYARGeohv dailyOctober 2024 11:00pmOctober 2024 10:08am Diltiazem Hcl 30 mg ByynlaBejrwp57VDQHRnrfu lgzqj574737Pnnhndy 2024 11:00pmUnknownErtapenem 1 gram Recon CnnsPgckqxyzshhu1JKHAK02F964Gznllxr 2024 11:00pmOctober 2024 11:00pmOctober 2024 11:01pmPramipexole 0.25 mg tabletActive0.25MGPODaily as needed for tremor(s)0300December 18, 2024 10:08amUnknownPotassium Chloride 20 mEq Tablet Extended PppsehzVewuhzcjriop80IKP POBedtimeOct2019 11:00pmOctober 2019 11:33amOn Hold: Resume on 12/26/19.Sulfamethoxazole-Trimethoprim (Bactrim Ds) 800-160 mg Tablet Unwdzlikwqhp2YWZALB58RXatxiod 2019 11:00pmOctober 2019 12:37pm Atorvastatin 40 mg IphvckQkqbgtnzvxix06ANEUTiosx at cqprmmi772Fllhpgd 2019 11:00pmApril 2023 10:57amCarvedilol 6.25 mg TabletDiscontinued6.25MGPOTwice daily with ykbgh651Ymvhjeh 29th, 2020 11:00pmNovember 2021 12:30pm Hydroxyzine Pamoate 50 mg RzaehffWbjhnbmwpbou09TOZSD2E as needed for Muscle Xospw37Fcgbtju2019 11:00pmNovember 2021 1:10pmAcetaminophen 500 mg EsunybBjspmfjfmwol9233MNAZQqflc lqwxk091Dqvcejj 29th, 2020 11:00pmApril 2023 10:56amOxycodone-Acetaminophen 5-325 mg YwttotIbknyniwfmqf8BSSIGU9A as needed for Mild Rmtk4376Vfxkhxo2021 12:30pmStatus post total left knee replacement Presence of left artificial knee jointFolic Acid-Vit B6-Vit B12 ([place]) 2.5-25-1 mg DbxvhuFzqmgkviaehy2THICJJudeo052Byvxcyn 2019 11:00pmNov2021 1:09pmPotassium Chloride (Klor-Con M20) 20 mEq Tablet,Er Particles/OwsghzwaTtwcbiqaqphu22TNKSBFqlky777Uzfplsx 29th, 2020 11:00pmNov2021 1:35pmMagnesium Oxide 400 mg (241.3 mg magnesium) TabletDiscontinued 055SZENXnbsg462Ilkvoyk 2019 11:00pmApril 2023 10:57amLevothyroxine (Synthroid) 150 mcg NkpatyYfdcevilgsbg715ABNHOECAIM@7520711Enizhym 2019 11:00pmApril 2023 10:57amDocusate Sodium (Dok) 100 mg CapsuleDiscontinued 100MGPOTwice ouemo728Ukdjhvw 29th, 2020 11:00pmApril 2023 10:57amOxybutynin Chloride 5 mg Tablet Extended Release 12qcGhgrphkbtgrd79WESYUzfib with worzb732 January 03, 2020 11:00pmNov2021 1:36pmBumetanide 1 mg Tablet Jslfciphmjuk7YQDBUGRSO@6993342Hwbwwal 2019 11:pmNov2021 1:35pmAllopurinol 300 mg NaylrpHthevniompod771JWRUAetqg831Jgrricj 2019 11:00pmApril 2023 10:57amDigoxin 125 mcg (0.125 mg) ZysnbkOytlbrtqiagg987 RWHAXZltyp908Mgeslym 2019 11:00pmNov2021 12:30pmFluticasone Propionate 50 mcg/actuation Gibson,VciutzevjkUvduuucgdcdy9QHZYGSUZJT-EMOVYrtcq fxvks427Efarfep 2019 11:00pmJanuary 09, 2022 1:10pmHydroxyzine Pamoate 25 mg FzwbqumJckbxhxsescc42BTZVI4R as needed for Muscle Ppjkp657Sovohzz 29th, 2020 11:00pmJanuary 09, 2022 1:10pmDiclofenac Sodium 1 % HaeBthafnnesygi2IN TOPICALThree times daily as needed for evcf477Uluerqn2019 11:00pmJanuary 09, 2022 1:10pmMelatonin 5 mg MhrumaDqatvmxtwxjd8DWQMLkczo at yzoripo933Yqbwdwl 29th, 2020 11:002021 1:09pmLactulose 20 gram/30 mL Solution Euiuzxrjirsr64ULSXXcqam as needed for Urtwfruyutal3552Mruehzg 2019 11:00pm January 09, 2022 1:11pmMirabegron (Myrbetriq) 25 mg Tablet Extended Release 24 HnYjegeprbmret71BCOSPfjvh with hewmr872Inqvfsh 29th, 2020 11:00pmJanuary 09, 2022 1:36pmApixaban (Eliquis) 5 mg NnxcovUgdzilifngcw5SCHYUilfv tssjl349Lpcxkyi 2019 11:00pmApril 2023 10:57amSacubitril-Valsartan (Entresto) 24-26 mg XmjkapIcxxssatzlum7PWMWUXvkud byzwm274Swszjkm 2019 11:00pmNov2021 12:30pmTrazodone 50 mg xgxfxzMswzpgumbntd38KWGFXatoawaIvqsivvb 4th, 2022 11:00pmApril 2023 10:57amEszopiclone 3 mg cigvgfExibfqompkwh0BSNY BedtimeJanuary 08, 2022 11:00pmApril 2023 10:57amFluticasone Propionate 50 mcg/actuation spray,rlypczopioQpurtdpkitom5UMTHKPEPOJ-UYTNJspck at bedtime as needed for Nasal CongestionJanuary 09, 2022 1:10pmApril 2023 10:57am Potassium Chloride (Klor-Con M20) 20 mEq tablet,ER particles/crystals Lduksdcpnfjc28DVLSOIcdrc eveningJanuary 09, 2022 1:35pmApril 2023 10:57am Bumetanide 1 mg tabletDiscontinued0.5MGPODAILY@0800January 09, 2022 1:35pm January 16, 2022 12:30pmSulfamethoxazole-Trimethoprim (Bactrim Ds) 800-160 mg UpugldButxalwdbxyi2RLFAXEbbau dailyNov2021 11:00pmJanuary 16, 2022 12:30pmstarted 01/08/22 for 7 daysOxycodone-Acetaminophen 5-325 mg Tablet Xdecjkjgivtu0IURNCQ8H as needed for Moderate Vbhp970Jjtzgoswpril 2023 10:57amLow back pain Low back pain, unspecifiedBumetanide 1 mg InsqtsKtlmzcmmbltt1UAPUKMKOZ@228658 January 16, 2022 12:00amApril 2023 10:57amClindamycin Hcl (Cleocin Hcl) 300 mg grwnwpaTnyvbcdvpnwi969AKPZTimh times dailyJanuary 2024 12:00amMay 2024 3:01pmMetolazone 5 mg svzlcoGupoujnmfagi7NDNMWyfjfAehhdeb 2024 12:00amJanuary 2024 12:33pmCarvedilol 6.25 mg tabletDiscontinued6.25MGPO Twice dailyJanuary 2024 12:00amJanuary 2024 12:33pmmust administer with a meal/foodAcetaminophen (Acetaminophen Extra Strength) 500 mg tablet Vwisoetittwc474CVLVAwhzk times dailyJanuary 2024 12:00amMay 2024 12:27pmBumetanide 1 mg nkujxsJcbaep5RCYSAnpxfFuoctvq 2024 12:00amUnknown Carvedilol 3.125 mg TabletDiscontinued3.125MGPOTwice bsxkx96914Ojrrsfc 2024 12:00amJuly 2024 2:14pmApixaban (Eliquis) 2.5 mg TabletDiscontinued2.5MGPO Twice uzhsq02146Bzrixny 2024 12:00amMay 2024 3:01pmTamsulosin 0.4 mg CapsuleDiscontinued0.0CPGDTbmra95149Xelcywk 2024 12:00amMay 2024 3:01pmOxycodone-Acetaminophen 5-325 mg ppqlubTqxvrctzpxmd9AIGUXDgqzy 6 hours as needed for viga323Xzfvvqo 2024 12:45pmMay 2024 12:26pmPotassium Chloride (Klor-Con M20) 20 mEq tablet,ER particles/yvmptjnzNexxrm36DCJANAwxcm at bedtimeMay 2024 11:00pmUnknownDoxycycline Hyclate 100 mg tabletDiscontinued 100MGPOTwice dailyMay 2024 11:00pmMay 2024 12:26pmend date 07/14/2024 Ipratropium-Albuterol 0.5 mg-3 mg(2.5 mg base)/3 mL solution for nebulization Ikatnfyrrfne8JVUEAYEFBIHXDmhxo 6 hours as needed for shortness of breath or wheezingJuly 11, 2024 11:00pmJuly 2024 12:59pmApixaban (Eliquis) 2.5 mg IwbdfcYforloasfoog7DLUXFpgqi dailyMay 2024 11:00pmOctober 2024 10:08amCefepime 2 gram Recon XuefAakxukrpcdtx7TRAUN75N5809Rdh 2024 11:00pm September 18, 2024 2:14pmVancomycin 1,000 mg Recon IdqyUllvsykjpvhn0ZENAG31H478Wja 2024 11:00pmJuly 2024 2:16pmPolyethylene Glycol 3350 (Healthylax) 17 gram Powder In CqjgmxWeefcshuacip84HMKKQbuvk jdpcd76KxrJuly 16, 2024 11:00pmAugust 2024 6:29pmAcetaminophen (Acetaminophen Extra Strength) 500 mg tablet Crarahwkuamc695DXUSFvtub times daily as needed for eerj153Hjx 2024 12:26pm December 12, 2024 2:21pmOxycodone-Acetaminophen 5-325 mg pexuekDbmytimmjxqq5LGB POEvery 6 hours as needed for aotj156Llv 132024 6:29pm Abscess of left lower extremity Cutaneous abscess of left lower limbEszopiclone (Lunesta) 3 mg vazkjdRcujhi4UTZB Daily at bedtimeJuly 2024 11:00pmUnknownPramipexole 0.25 mg tablet Discontinued0.25MGPODaily as needed for tremor(s)October 04, 2024 11:00pmOctober 2024 10:08amAtorvastatin 40 mg cxzvdaPimeop00DVEWIhqgx at bedtimeJuly 2024 11:00pmUnknownOxycodone 5 mg IoeykhYlzykjnmmpcc3CAMKBcvab 4 hours as needed for Severe Asyj1918Tffhkd 2024October 2024 2:19pmFall Unspecified fall, initial encounterLinezolid 600 mg dibnhmRmqgmzkqjqls627CFWT Twice jcibf8597Vnttxe 2024 11:00pmOctober 2024 2:20pmApixaban 5 mg rkfbyfDjsrmyrucgll0WMPUSikfx dailyMarch 2023 11:00pmJanuary 2024 12:33pmMagnesium Oxide 400 mg magnesium kwnizhrCrxgsz157ACYNYqfep at bedtime June 05, 2023 11:00pmUnknownBumetanide 1 mg zjstpoWkqxmsastikd7NBUWDwppxVukir 2023 11:00pmApril 2023 2:49pmDocusate Sodium 100 mg capsule Rtevibwkjunb350VORZDejhw as neededMarch 2023 11:00pmJanuary 2024 10:13amPotassium Chloride 20 mEq tablet,ER particles/gtihzqcbFftnskgvpcpq43QSGMO DailyMarch 2023 11:00pmApril 2023 12:46pmOxycodone-Acetaminophen 5- 325 mg kskdxwQmrjyjyfeemc9BGBRMBares 6 hours as needed for nnpi4Qcovi 2023 11:00pmJanuary 2024 12:45pmFreeTextSi tablet as needed Orally every 6 hrs; Note: Source Status: TakingDr. Kosta FINEN; Provider: Daily Wiggins ( )Trazodone 50 mg jzwwcgCpjcprkgnklh74RXXGMvnqn at bedtime as needed June 05, 2023 11:00pmApril 2023 2:49pmAtorvastatin 40 mg tablet Xjtcbfewrnrf02OEZLEalfsYvpun 2023 11:00pmJune 2023 1:09pmOxybutynin Chloride 10 mg tablet extended release 08okUthxyipjkipu54YGXZGytvhUhnxz 2023 11:00pmJuly 2023 8:55amMultivitamin (Daily Multi-Vitamin) tablet Byjdovhzaeqa8HEVXBOxuszOxjrd 2023 11:00pmJanuary 2024 10:14am Acetaminophen (Tylenol) 325 mg mgegpwEppfotagvxgg107YTSVPfqao 6 hours as needed June 05, 2023 11:00pmJanuary 2024 10:11amEszopiclone 3 mg tablet Tupammqbnthd1WTHKPqhcv at [facility]time[facility] 2023 11:00pmApril 2023 2:49pm Nystatin 100,000 unit/gram ipaekcEzvmqqwbdhxa3MEPEUQRUHCHYPKfrrj dailyS[facility] 2023 11:00pmJanuary 2024 10:14amFreeTextSi application Externally Twice a day; Note: Source Status: Taking; Refills: 3; Provider: Daily Myers Mupirocin 2 % bwrbjbsmQzkmwjbgzrxe1HNWKOLIHBEZWEJxhyh dailyS[facility] 2023 11:00pmOctober 2023 11:07amFreeTextSi application Externally Twice a day; Note: Source Status: Taking; Refills: 1; Qty: 60gram; Provider: Daily Wiggins PLevothyroxine (Synthroid) 150 mcg qxzjfgVdrbppobhwqf755OBLAEFnvpf morningMar 2023 11:00pmJuly 2023 8:53amAllopurinol 300 mg jbpxbsYguvwmvzjzml559 MGPODailyShelby Memorial Hospital 2023 11:00pmApril 2023 1:17pmAllopurinol 300 mg tablet Paqfzvhcrbug094XXNSUlkvi532Elqga 2023 1:16pmApril 2023 1:18pm Allopurinol 300 mg sbifptFmpyqm045ODVNGfejn705Gonah 2023 1:18pmUnknown Immunizations Immunization Event Date Not Given Reason Dose Number 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 Number Reason(s) Given Vaccine Information Statement (VIS) Detail Administration Location COVID-19 mRNA-1273 (Moderna) April 14, 2020 COVID-19 mRNA-1273 (Moderna)April 30OVID-19 mRNA-1273 (Moderna)May 05OVID-19 mRNA-1273 (Moderna)May 28OVID-19 mRNA-1273 (Moderna)February 18OVID- mRNA Bivalent Booster (Moderna)December 24, 2021Fluzone TIV High-Dose 65YR+December 06, 2017Fluzone TIV High-Dose 65YR+December 17, 2022Fluzone QIV High-Dose 65YR+December 22, 2019OJ519AA [facility] CtrFluz[facility] QIV High-Dose 65YR+December 24, 2021 Influenza, trivalentSeptember 2018influenza, unspecified formulation December 17, 2022Trivalent Influenza VaccineOctober 2017Trivalent Influenza VaccineSeptember 2018Trivalent Influenza VaccineOctober 2021Trivalent Influenza VaccineOctober 2019 Medical Equipment Device Date Implanted Device Details ART SURF LEFT 11MM 10-11EF November 05, 2019 Orthopaedic cement, non-medicatedAugust 2019UDI: [id number] Issuing Agency: [employer] Device Id: [id number] Expiration Date: 2023-12-05 Lot Number: [id number] cement, non-medicatedAugust 2019UDI: ()[id number] Issuing Agency: [employer] Device Id: [id number] Expiration Date: 2023-12-05 Lot Number: [id number] knee femur prosthesisAugust 2019UDI: ()[id number] Issuing Agency: [facility] [place] Device Id: [id number] Expiration Date: 2029-03-06 Lot Number: [id number] knee tibia prosthesis, metallicAugust 2019 EDITH: ()[id number] Issuing Agency: [facility] [place] Device Id: [id number] Expiration Date: 2029-06-04 Lot Number: [id number] patella prosthesisAugust 2019UDI: ()[id number] Issuing Agency: [facility] [place] Device Id: [id number] Expiration Date: 2027-09-04 Lot Number: [id number] Procedures Procedure Date Performed Status CT lumbar [...] RESULTS CALLED TO JONATHAN Prince NP @BY Joo Davila 2156CUT-OFF POINTS HAVE BEEN ESTABLISHED BASED ON [...] 2024 8:17pmOctober 2024 8:17pm0.1 10 3/uL0.0-0.1Urine Culture ReflexedOct2024 8:51pmOctober 2024 8:51pmYES-FRMCUrine Microscopic ReviewOct2024 8:51pmYESLactic Acid LevelOct2024 2:54pmOctober 2024 2:54pm1.5 mmol/L0.4-2.0Troponin I High Sensitivity December 30, 2024 2:54pmOctober 2024 2:80dm871.3 pg/mLAbove upper panic limits4.0-76.1RESULTS CALLED TO DR. [...] OTHER DIAGNOSTIC AND CLINICAL INFORMATION.Anion GapOctober 2024 2:54pmOctober 2024 2:54pm14.5B-Type Natriuretic PeptideOct2024 2:54pmOctober 2024 2:74qg9932.0 pg/mLAbove upper panic limits <=1800.0RESULTS CALLED TO DR. LEA PEÑA at 1637Basophils # (Auto)December 30, 2024 2:54pmOctober 2024 2:54pm0.1 10 3/uL0.0-0.1Urine Culture Reflexed December 30, 2024 3:45pmYES-FRMCVitamin B12 LevelOct2024 4:40am December 31, 2024 4:01ra717 pg/rC790-1180Rxpouoztb at: - [facility] [id number] [place], [place] [id number] Director: Patrick Ortiz PhD, Phone: [phone] 27th, 2025 4:40amOctober 2024 4:40am9.00 ng/mL 8.60-58.90FerritinOct2024 4:40amOctober 2024 4:43ce875.0 ng/mL 26.0-388.0Thyroid Stimulating Hormone 3rd GenOct2024 4:40amOctober 2024 4:40am10.864 u[iU]/mLAbove high normal0.358-3.740Magnesium Level December 31, 2024 4:40amOctober 2024 4:40am2.4 mg/dL1.8-2.4Iron SaturationDecember 31, 2024 4:40amOctober 2024 4:40am6.8 %Basophils # (Auto)December 31, 2024 4:40amOctober 2024 4:40am0.1 10 3/uL0.0-0.1Anion GapOctober 2024 8:50pmOctober 2024 8:50pm12.1HematocritOctober 2024 8:50pmOctober 2024 8:50pm26.0 %Below low ojrqhz76.0-54.0Hematocrit January 01, 2025 4:19amOctober 2024 4:19am23.6 %Below lower panic limits 42.0-54.0RESULTS CALLED TO JACKI MONIQUE RN @BY Shy Haque at 0631 Anion GapOctober 2024 4:19amOctober 2024 4:19am13.7Anion GapOctober 2024 4:42amOctober 2024 4:42am11.5HematocritOctober 2024 4:42amOctober 2024 4:42am25.2 %Below low yxasqh76.0-54.0Anion GapOctober 2024 4:02amOctober 2024 4:02am13.7HematocritOctober 2024 3:22pmOctober 2024 3:22pm25.3 %Below low .0-54.0Anion GapOctober 2024 4:24amOctober 2024 4:24am12.0Urine Microscopic ReviewNovember 2024 9:00amNovember 2024 9:00amYESUrine Microscopic ReviewNovember 2024 12:24pmNovember 2024 12:24pmYESLactic Acid LevelNovember 2024 12:51pmNovember 2024 12:51pm1.1 mmol/L0.4-2.0Anion GapNovember 2024 12:51pmNovember 2024 12:51pm8.3Basophils # (Auto)January 26, 2025 12:51pmNovember 2024 12:51pm0.1 10 3/uL0.0-0.1Albumin/Globulin Ratio December 27, 2024 8:17pmOctober 2024 8:17pm0.6Basophils (%) (Auto)December 27, 2024 8:17pmOctober 2024 8:17pm0.9 %0.2-2.0Urine Other CastsOctober 2024 8:51pmOctober 2024 8:51pmNONE SEEN #/LPFNONE SEENUrine BilirubinOctober 2024 8:51pmNEGATIVENEGATIVEBUN/Creatinine RatioOctober 2024 2:54pmOctober 2024 2:54pm16.5Basophils (%) (Auto)December 30, 2024 2:54pmOctober 2024 2:54pm0.6 %0.2-2.0Urine Other CastsOctober 2024 3:45pmNONE SEEN #/LPFNONE SEENAlbumin/Globulin RatioOctober 2024 4:40amOctober 2024 4:40am0.6Iron LevelOct2024 4:40amOctober 2024 4:40am12.0 ug/dLBelow low weooza70.0-175.0Basophils (%) (Auto)December 31, 2024 4:40amOctober 2024 4:40am0.8 %0.2-2.0BUN/Creatinine Ratio December 31, 2024 8:50pmOct2024 8:50pm18.1HemoglobinOct2024 8:50pmOct2024 8:50pm8.3 g/dLBelow low ceiwro66.0-18.0Hemoglobin January 01, 2025 4:19amOct2024 4:19am7.6 g/dLBelow low normal 14.0-18.0Albumin/Globulin RatioOct2024 4:19amOctober 2024 4:19am0.6Albumin/Globulin RatioOct2024 4:42amOctober 2024 4:42am0.6HemoglobinOct2024 4:42amOct2024 4:42am8.1 g/dL Below low juffko39.0-18.0Albumin/Globulin RatioOct2024 4:02amOct2024 4:02am0.6HemoglobinOct2024 3:22pmOct2024 3:22pm 8.2 g/dLBelow low xwvmga77.0-18.0BUN/Creatinine RatioOct2024 4:24am January 04, 2025 4:24am17.9Urine BilirubinNovember 2024 9:00amNovember 2024 9:00amNEGATIVENEGATIVEUrine BilirubinNovember 2024 12:24pm January 26, 2025 12:24pmNEGATIVENEGATIVEAlbumin/Globulin RatioNovember 2024 12:51pmNov2024 12:51pm0.8Basophils (%) (Auto)January 26, 2025 12:51pmNovember 2024 12:51pm1.1 %0.2-2.0AlbuminOctober 2024 8:17pmOctober 2024 8:17pm2.7 g/dLBelow low normal3.4-5.0Eosinophils # (Auto)December 27, 2024 8:17pmOctober 2024 8:17pm0.2 10 3/uL0.0-0.7Urine Other CrystalsOctober 2024 8:51pmOctober 2024 8:51pmNone Seen #/HPF None SeenUrine Occult BloodOctober 2024 8:51pmNEGATIVENEGATIVEBlood Urea NitrogenOctober 2024 2:54pmOctober 2024 2:54pm44.0 mg/dLAbove high normal7.0-18.0Eosinophils # (Auto)December 30, 2024 2:54pmOctober 2024 2:54pm0.2 10 3/uL0.0-0.7Urine Other CrystalsOctober 2024 3:45pmNone Seen #/HPFNone SeenAlbuminOctober 2024 4:40amOctober 2024 4:40am2.4 g/dL Below low normal3.4-5.0Total Iron Binding CapacityOctober 2024 4:40am December 31, 2024 4:33pu528.0 ug/dLBelow low xmyzpm546.0-450.0Eosinophils # (Auto)December 31, 2024 4:40amOctober 2024 4:40am0.2 10 3/uL0.0-0.7Blood Urea NitrogenOctober 2024 8:50pmOctober 2024 8:50pm41.0 mg/dLAbove high normal7.0-18.0Mean Corpuscular HemoglobinOctober 2024 4:19amOctober 2024 4:19am28.9 pg25.9-34.0AlbuminOctober 2024 4:19amOct2024 4:19am2.2 g/dLBelow low normal3.4-5.0AlbuminOct2024 4:42am January 02, 2025 4:42am2.3 g/dLBelow low normal3.4-5.0Mean Corpuscular HemoglobinOctober 2024 4:42amOct2024 4:42am28.6 pg25.9-34.0Mean Corpuscular HemoglobinOctober 2024 4:02amOct2024 4:02am28.6 pg 25.9-34.0AlbuminOct2024 4:02amOct2024 4:02am2.0 g/dLBelow low normal3.4-5.0Blood Urea NitrogenOct2024 4:24amOct2024 4:24am20.0 mg/dLAbove high normal7.0-18.0Urine Occult BloodNov2024 9:00amNovember 2024 9:00amSMALLAbnormal (applies to non-numeric results) NEGATIVEUrine Occult BloodNov2024 12:24pmNov2024 12:24pm LARGEAbnormal (applies to non-numeric results)NEGATIVEAlbuminNov2024 12:51pmNov2024 12:51pm3.1 g/dLBelow low normal3.4-5.0Eosinophils # (Auto)January 26, 2025 12:51pmNov2024 12:51pm0.5 10 3/uL0.0-0.7 Alkaline PhosphataseOct2024 8:17pmOctober 2024 8:55ay205 U/L Above high -695Lovavrgoidx (%) (Auto)December 27, 2024 8:17pmOctober 2024 8:17pm2.8 %0.9-7.0Urine BacteriaOct2024 8:51pmOctober 2024 8:51pmSMALL #/HPFAbnormal (applies to non-numeric results)NONE SEEN Urine AppearanceOctober 2024 8:51pmSL CLOUDYCLEARCalcium LevelOctober 2024 2:54pmOctober 2024 2:54pm9.5 mg/dL8.5-10.1Eosinophils (%) (Auto)December 30, 2024 2:54pmOctober 2024 2:54pm1.9 %0.9-7.0Urine BacteriaOctober 2024 3:45pmSMALL #/HPFAbnormal (applies to non-numeric results)NONE SEENAlkaline PhosphataseOctober 2024 4:40amOctober 2024 4:40am96 U/N90-139Hrkuoyqgevy (%) (Auto)December 31, 2024 4:40amOctober 2024 4:40am2.7 %0.9-7.0Calcium LevelOctober 2024 8:50pmOctober 2024 8:50pm8.6 mg/dL8.5-10.1Mean Corpuscular Hemoglobin ConcentOctober 2024 4:19amOctober 2024 4:19am32.2 g/dL29.9-35.2Alkaline PhosphataseOctober 2024 4:19amOctober 2024 4:19am92 U/G30-430Uncquuec Phosphatase January 02, 2025 4:42amOctober 2024 4:42am86 U/F84-449Afuh Corpuscular Hemoglobin ConcentOctober 2024 4:42amOctober 2024 4:42am32.1 g/dL 29.9-35.2Mean Corpuscular Hemoglobin ConcentOctober 2024 4:02amOctober 2024 4:02am32.1 g/dL29.9-35.2Alkaline PhosphataseOctober 2024 4:02am January 03, 2025 4:02am82 U/X39-987Okrrofy LevelOctober 2024 4:24am January 04, 2025 4:24am8.4 mg/dLBelow low normal8.5-10.1Urine Appearance January 25, 2025 9:00amNovember 2024 9:00amCLEARCLEARUrine Appearance January 26, 2025 12:24pmNovember 2024 12:24pmCLOUDYAbnormal (applies to non-numeric results)CLEARAlkaline PhosphataseJanuary 26, 2025 12:51pm January 26, 2025 12:04xy981 U/LAbove high pucjim81-238Mpxdzzfwgbz (%) (Auto) January 26, 2025 12:51pmNovember 2024 12:51pm8.5 %Above high normal 0.9-7.0Alanine Aminotransferase (ALT/SGPT)December 27, 2024 8:17pmOctober 2024 8:17pm30 U/E04-49XeobxqiwnoOwiqltr 2024 8:17pmOctober 2024 8:17pm27.1 %Below low wgtehl41.0-54.0Urine MucusOct2024 8:51pmOctober 2024 8:51pmNONE SEENNONE SEENUrine ColorOct2024 8:51pmLT. YELLOWYELLOWChloride LevelOct2024 2:54pmOctober 2024 2:54pm97 mmol/LBelow low wmrhuw73-248HaegjsexauRioewte 2024 2:54pmOctober 2024 2:54pm24.0 %Below low lbysfq76.0-54.0Urine BilirubinOct2024 3:45pmNEGATIVENEGATIVEAlanine Aminotransferase (ALT/SGPT)December 31, 2024 4:40amOctober 2024 4:40am16 U/G57-56Qqputofd LevelOct2024 8:50pmOctober 2024 8:12jl027 mmol/LAbove high pwlyrk93-801Kkza Corpuscular VolumeOct2024 4:19amOctober 2024 4:19am89.7 fL80.0-94.0Alanine Aminotransferase (ALT/SGPT)January 01, 2025 4:19amOctober 2024 4:19am11 U/LBelow low ftmozd06-59Ykmrwai Aminotransferase (ALT/SGPT)January 02, 2025 4:42amOctober 2024 4:42am9 U/LBelow low nhuzlr08-00Drpt Corpuscular Volume January 02, 2025 4:42amOctober 2024 4:42am89.0 fL80.0-94.0Mean Corpuscular VolumeOct2024 4:02amOctober 2024 4:02am89.0 fL 80.0-94.0Alanine Aminotransferase (ALT/SGPT)January 03, 2025 4:02amOctober 2024 4:02am7 U/LBelow low xfroyx45-28Rkiipnir LevelOct2024 4:24amOctober 2024 4:19om010 mmol/U63-324Dsept ColorNovember 2024 9:00amNovember 2024 9:00amLT. YELLOWYELLOWUrine ColorNovember 2024 12:24pmNovember 2024 12:24pmLT. YELLOWYELLOWAlanine Aminotransferase (ALT/SGPT)January 26, 2025 12:51pmNovember 2024 12:51pm16 U/L16-63 HematocritNovember 2024 12:51pmNovember 2024 12:51pm32.2 %Below low wfetei42.0-54.0Aspartate Amino Transf (AST/SGOT)December 27, 2024 8:17pmOctober 2024 8:17pm42 U/LAbove high cultod43-06PhardhitnkZabosxp 2024 8:17pmOctober 2024 8:17pm8.7 g/dLBelow low wcfyrt21.0-18.0Urine RBCOctober 2024 8:51pmOctober 2024 8:22fe2-0 #/HPF0-2Urine Glucose (UA)December 27, 2024 8:51pmNEGATIVE mg/dLNEGATIVECarbon Dioxide LevelOctober 2024 2:54pmOctober 2024 2:54pm24.2 mmol/L21.0-32.0HemoglobinOct2024 2:54pmOctober 2024 2:54pm7.6 g/dLBelow low pqsmfi35.0-18.0Urine Occult BloodOctober 2024 3:45pmSMALLAbnormal (applies to non-numeric results) NEGATIVEAspartate Amino Transf (AST/SGOT)December 31, 2024 4:40amOctober 2024 4:40am17 U/G29-44Yqmthw Dioxide LevelOctober 2024 8:50pmOctober 2024 8:50pm25.0 mmol/L21.0-32.0Mean Platelet VolumeOctober 2024 4:19am January 01, 2025 4:19am9.6 fL9.5-13.5Aspartate Amino Transf (AST/SGOT)January 01, 2025 4:19amOctober 2024 4:19am14 U/LBelow low dnufxr43-20Wmxicxzfo Amino Transf (AST/SGOT)January 02, 2025 4:42amOctober 2024 4:42am20 U/L 15-37Mean Platelet VolumeOctober 2024 4:42amOctober 2024 4:42am9.9 fL9.5-13.5Mean Platelet VolumeOct2024 4:02amOct2024 4:02am 9.6 fL9.5-13.5Aspartate Amino Transf (AST/SGOT)January 03, 2025 4:02amOct2024 4:02am17 U/V90-96Lymqhv Dioxide LevelOct2024 4:24amOct2024 4:24am24.7 mmol/L21.0-32.0Urine Glucose (UA)January 25, 2025 9:00amNovember 2024 9:00amNEGATIVE mg/dLNEGATIVEUrine Glucose (UA)January 26, 2025 12:24pmNovember 2024 12:24pmNEGATIVE mg/dLNEGATIVEAspartate Amino Transf (AST/SGOT)January 26, 2025 12:51pmNovember 2024 12:51pm17 U/J76-75SusgtdzilrJuiulece 2024 12:51pmNovember 2024 12:51pm10.4 g/dLBelow low fneaxj80.0-18.0BUN/Creatinine RatioOct2024 8:17pm December 27, 2024 8:17pm18.0Immature Granulocyte # (Auto)December 27, 2024 8:17pmOct2024 8:17pm0.04 10 3/uLAbove high normal0.00-0.03Urine Squamous Epithelial CellsOct2024 8:51pmOctober 2024 8:51pmNONE SEEN #/LPFNONE/RAREUrine KetonesOctober 2024 8:51pmNEGATIVE mg/dLNEGATIVE CreatinineOctober 2024 2:54pmOctober 2024 2:54pm2.66 mg/dLAbove high normal0.70-1.30Immature Granulocyte # (Auto)December 30, 2024 2:54pmOctober 2024 2:54pm0.04 10 3/uLAbove high normal0.00-0.03Urine AppearanceOct2024 3:45pmCLEARCLEARImmature Granulocyte # (Auto)December 31, 2024 4:40amOctober 2024 4:40am0.01 10 3/uL0.00-0.03CreatinineOctober 2024 8:50pmOctober 2024 8:50pm2.26 mg/dLAbove high normal0.70-1.30Platelet CountOct2024 4:19amOctober 2024 4:74aw346 10 3/sJ261-605 BUN/Creatinine RatioOct2024 4:19amOctober 2024 4:19am19.0 BUN/Creatinine RatioOct2024 4:42amOctober 2024 4:42am18.5 Platelet CountOctober 2024 4:42amOctober 2024 4:96qt517 10 3/uL 150-450Platelet CountOctober 2024 4:02amOctober 2024 4:99yz133 10 3/xS617-123MPP/Creatinine RatioOctober 2024 4:02amOctober 2024 4:02am18.9CreatinineOctober 2024 4:24amOctober 2024 4:24am1.12 mg/dL 0.70-1.30Urine KetonesNovember 2024 9:00amNovember 2024 9:00am NEGATIVE mg/dLNEGATIVEUrine KetonesNovember 2024 12:24pmNovember 2024 12:24pmNEGATIVE mg/dLNEGATIVEBUN/Creatinine RatioNoveer 2024 12:51pmNovember 2024 12:51pm16.7Immature Granulocyte # (Auto)January 26, 2025 12:51pmNovember 2024 12:51pm0.01 10 3/uL0.00-0.03Blood Urea NitrogenOctober 2024 8:17pmOctober 2024 8:17pm24.0 mg/dLAbove high normal7.0-18.0Immature Granulocyte % (Auto)December 27, 2024 8:17pmOctober 2024 8:17pm0.5 %0.0-0.5Urine WBCOctober 2024 8:51pmOctober 2024 8:66zx30-11 #/HPFAbnormal (applies to non-numeric results)NONE SEENUrine Leukocyte EsteraseOctober 2024 8:51pmSMALLAbnormal (applies to non-numeric results)NEGATIVEEstimated GFR ()December 30, 2024 2:54pm December 30, 2024 2:73uc13Vuigc low normal>=60 mL/min/1.73m 2Immature Granulocyte % (Auto)December 30, 2024 2:54pmOctober 2024 2:54pm0.3 % 0.0-0.5Urine ColorOctober 2024 3:45pmLT. YELLOWYELLOWImmature Granulocyte % (Auto)December 31, 2024 4:40amOctober 2024 4:40am0.1 %0.0-0.5Estimated GFR ()December 31, 2024 8:50pmOctober 2024 8:77mo47Umiwn low normal>=60 mL/min/1.73m 2Red Blood CountOctober 2024 4:19amOctober 2024 4:19am2.63 10 6/uLBelow low normal4.70-6.10Blood Urea NitrogenOctober 2024 4:19amOctober 2024 4:19am39.0 mg/dLAbove high normal7.0-18.0 Blood Urea NitrogenOctober 2024 4:42amOctober 2024 4:42am30.0 mg/dL Above high normal7.0-18.0Red Blood CountOctober 2024 4:42amOctober 2024 4:42am2.83 10 6/uLBelow low normal4.70-6.10Red Blood CountOctober 2024 4:02amOctober 2024 4:02am2.73 10 6/uLBelow low normal4.70-6.10Blood Urea NitrogenOctober 2024 4:02amOctober 2024 4:02am24.0 mg/dLAbove high normal7.0-18.0Estimated GFR ()January 04, 2025 4:24am January 04, 2025 4:24am>60>=60 mL/min/1.73m 2Urine Leukocyte EsteraseNovember 2024 9:00amNovember 2024 9:00amMODERATEAbnormal (applies to non- numeric results)NEGATIVEUrine Leukocyte EsteraseNov2024 12:24pm January 26, 2025 12:24pmLARGEAbnormal (applies to non-numeric results) NEGATIVEBlood Urea NitrogenNovember 2024 12:51pmNovember 2024 12:51pm17.0 mg/dL7.0-18.0Immature Granulocyte % (Auto)January 26, 2025 12:51pmNovember 2024 12:51pm0.2 %0.0-0.5Calcium LevelOctober 2024 8:17pmOctober 2024 8:17pm8.9 mg/dL8.5-10.1Lymphocytes # (Auto)December 27, 2024 8:17pmOctober 2024 8:17pm1.2 10 3/uL1.2-3.8Urine YeastOctober 2024 8:51pmOctober 2024 8:51pmSEENAbnormal (applies to non-numeric results)NONE SEENMany budding yeastModerate HyphaeUrine NitriteOctober 2024 8:51pmNEGATIVENEGATIVEEstimated GFR (Non- AmericanOctober 2024 2:54pmOctober 2024 2:59xj45Cwuuz low normal>=60 mL/min/1.73m 2Lymphocytes # (Auto)December 30, 2024 2:54pmOctober 2024 2:54pm1.2 10 3/uL1.2-3.8 Urine Glucose (UA)December 30, 2024 3:45pmNEGATIVE mg/dLNEGATIVELymphocytes # (Auto)December 31, 2024 4:40amOctober 2024 4:40am1.0 10 3/uLBelow low normal1.2-3.8Estimated GFR (Non- AmericanOctober 2024 8:50pmOctober 2024 8:90pa40Bwqjy low normal>=60 mL/min/1.73m 2Red Cell Distribution WidthOctober 2024 4:19amOctober 2024 4:19am16.7 %Above high normal 11.0-15.0Calcium LevelOctober 2024 4:19amOctober 2024 4:19am8.6 mg/dL8.5-10.1Calcium LevelOctober 2024 4:42amOctober 2024 4:42am8.6 mg/dL8.5-10.1Red Cell Distribution WidthOctober 2024 4:42amOctober 2024 4:42am16.3 %Above high iwefrf62.0-15.0Red Cell Distribution WidthOctober 2024 4:02amOctober 2024 4:02am16.3 %Above high .0-15.0 Calcium LevelOctober 2024 4:02amOctober 2024 4:02am8.4 mg/dLBelow low normal8.5-10.1Estimated GFR (Non- AmericanOctober 2024 4:24am January 04, 2025 4:24am>60>=60 mL/min/1.73m 2Urine NitriteNovember 2024 9:00amNovember 2024 9:00amPOSITIVEAbnormal (applies to non-numeric results)NEGATIVEUrine NitriteNovember 2024 12:24pmNovember 2024 12:24pmNEGATIVENEGATIVECalcium LevelNovember 2024 12:51pmNovember 2024 12:51pm9.7 mg/dL8.5-10.1Lymphocytes # (Auto)January 26, 2025 12:51pm January 26, 2025 12:51pm1.2 10 3/uL1.2-3.8Chloride LevelOctober 2024 8:17pmOctober 2024 8:17pm97 mmol/LBelow low yfybmq79-975Pfajjtbbutw (%) (Auto)December 27, 2024 8:17pmOctober 2024 8:17pm14.4 %Below low normal 20.5-60.0Urine pHOctober 2024 8:51pm5.55.0-9.0Glucose LevelOctober 2024 2:54pmOctober 2024 2:00ln453 mg/oX91-542Bnrazqyvzhm (%) (Auto)December 30, 2024 2:54pmOctober 2024 2:54pm10.4 %Below low ohliea86.5-60.0Urine KetonesOctober 2024 3:45pmNEGATIVE mg/dLNEGATIVELymphocytes (%) (Auto) December 31, 2024 4:40amOctober 2024 4:40am14.0 %Below low normal 20.5-60.0Glucose LevelOctober 2024 8:50pmOctober 2024 8:52pr927 mg/dLAbove high ugfkex77-161Kccsmnkjf White Blood CountOctober 2024 4:19am January 01, 2025 4:19am6.8 10 3/uL4.0-11.0Chloride LevelOctober 2024 4:19amOctober 2024 4:38gy171 mmol/J07-312Ksvifbtm LevelOctober 2024 4:42amOctober 2024 4:91ax618 mmol/Y77-380Vjwhxuhet White Blood Count January 02, 2025 4:42amOctober 2024 4:42am7.2 10 3/uL4.0-11.0Corrected White Blood CountOctober 2024 4:02amOctober 2024 4:02am5.9 10 3/uL 4.0-11.0Chloride LevelOctober 2024 4:02amOctober 2024 4:14by455 mmol/N78-225Iwqecuw LevelOctober 2024 4:24amOctober 2024 4:24am76 mg/kJ85-594Dhhjg pHNovember 2024 9:00amNovember 2024 9:00am7.5 5.0-9.0Urine pHNovember 2024 12:24pmNovember 2024 12:24pm8.05.0-9.0 Chloride LevelNovember 2024 12:51pmNovember 2024 12:72bc968 mmol/L 98-107Lymphocytes (%) (Auto)January 26, 2025 12:51pmNovember 2024 12:51pm22.9 %20.5-60.0Carbon Dioxide LevelOctober 2024 8:17pmOctober 2024 8:17pm24.8 mmol/L21.0-32.0Mean Corpuscular HemoglobinOctober 2024 8:17pmOctober 2024 8:17pm28.9 pg25.9-34.0Urine ProteinOctober 2024 8:51pmNEGATIVE mg/dLNEG/TRACEPotassium LevelOctober 2024 2:54pmOctober 2024 2:54pm4.7 mmol/L3.5-5.1Mean Corpuscular HemoglobinOctober 2024 2:54pmOctober 2024 2:54pm28.8 pg25.9-34.0Urine Leukocyte EsteraseOctober 2024 3:45pmMODERATEAbnormal (applies to non-numeric results)NEGATIVEMean Corpuscular HemoglobinOctober 2024 4:40amOctober 2024 4:40am28.3 pg 25.9-34.0Potassium LevelOctober 2024 8:50pmOctober 2024 8:50pm4.1 mmol/L3.5-5.1Carbon Dioxide LevelOctober 2024 4:19amOctober 2024 4:19am25.1 mmol/L21.0-32.0Carbon Dioxide LevelOctober 2024 4:42amOctober 2024 4:42am24.1 mmol/L21.0-32.0Carbon Dioxide LevelOctober 2024 4:02amOctober 2024 4:02am22.6 mmol/L21.0-32.0Potassium LevelOctober 2024 4:24amOctober 2024 4:24am3.7 mmol/L3.5-5.1Urine ProteinNovember 2024 9:00amNovember 2024 9:00am30 mg/dLAbnormal (applies to non-numeric results)NEG/TRACEUrine ProteinNovember 2024 12:24pmNovember 2024 12:94mu071 mg/dLAbnormal (applies to non-numeric results)NEG/TRACECarbon Dioxide LevelNovember 2024 12:51pmNovember 2024 12:51pm31.8 mmol/L21.0-32.0 Mean Corpuscular HemoglobinNovember 2024 12:51pmNovember 2024 12:51pm29.7 pg25.9-34.0CreatinineOctober 2024 8:17pmOctober 2024 8:17pm1.33 mg/dLAbove high normal0.70-1.30Mean Corpuscular Hemoglobin Concent December 27, 2024 8:17pmOctober 2024 8:17pm32.1 g/dL29.9-35.2Urine Specific GravityOct2024 8:51pm<=1.005Abnormal (applies to non-numeric results)1.005-1.025Sodium LevelOct2024 2:54pmOctober 2024 2:04sg208 mmol/LBelow low ssivuw274-871Ecmx Corpuscular Hemoglobin Concent December 30, 2024 2:54pmOctober 2024 2:54pm31.7 g/dL29.9-35.2Urine Mucus December 30, 2024 3:45pmNONE SEENNONE SEENMean Corpuscular Hemoglobin Concent December 31, 2024 4:40amOctober 2024 4:40am31.7 g/dL29.9-35.2Sodium Level December 31, 2024 8:50pmOctober 2024 8:42ud285 mmol/Q000-179Saarvejrfe January 01, 2025 4:19amOctober 2024 4:19am2.05 mg/dLAbove high normal 0.70-1.30CreatinineOct2024 4:42amOctober 2024 4:42am1.62 mg/dL Above high normal0.70-1.30CreatinineOctober 2024 4:02amOctober 2024 4:02am1.27 mg/dL0.70-1.30Sodium LevelOctober 2024 4:24amOctober 2024 4:06zl270 mmol/Q200-748Nirjy Specific GravityNovember 2024 9:00amNovember 2024 9:00am1.0101.005-1.025Urine Specific GravityNovember 2024 12:24pmNovember 2024 12:24pm1.0101.005-1.025CreatinineNovember 2024 12:51pmNovember 2024 12:51pm1.02 mg/dL0.70-1.30Mean Corpuscular Hemoglobin ConcentNovember 2024 12:51pmNovember 2024 12:51pm32.3 g/dL29.9-35.2 Estimated GFR ()December 27, 2024 8:17pmOctober 2024 8:17pm>60>=60 mL/min/1.73m 2Mean Corpuscular VolumeOctober 2024 8:17pm December 27, 2024 8:17pm90.0 fL80.0-94.0Urine UrobilinogenOctober 2024 8:51pm0.2 EU/dL0.2-1.0Mean Corpuscular VolumeOctober 2024 2:54pmOctober 2024 2:54pm90.9 fL80.0-94.0Urine NitriteOctober 2024 3:45pmPOSITIVE Abnormal (applies to non-numeric results)NEGATIVEMean Corpuscular VolumeOctober 2024 4:40amOctober 2024 4:40am89.3 fL80.0-94.0Estimated GFR ()January 01, 2025 4:19amOctober 2024 4:22iq39Emdmc low normal >=60 mL/min/1.73m 2Estimated GFR ()January 02, 2025 4:42am January 02, 2025 4:13im99Spuxt low normal>=60 mL/min/1.73m 2Estimated GFR ()January 03, 2025 4:02amOctober 2024 4:02am>60>=60 mL/min/1.73m 2Urine UrobilinogenNovember 2024 9:00amNovember 2024 9:00am0.2 EU/dL0.2-1.0Urine UrobilinogenNovember 2024 12:24pmNovember 2024 12:24pm0.2 EU/dL0.2-1.0Estimated GFR ()January 26, 2025 12:51pmNovember 2024 12:51pm>60>=60 mL/min/1.73m 2Mean Corpuscular VolumeNovember 2024 12:51pmNovember 2024 12:51pm92.0 fL80.0-94.0 Estimated GFR (Non- AmericanOct2024 8:17pmOctober 2024 8:04ko56Kfpch low normal>=60 mL/min/1.73m 2Monocytes # (Auto)December 27, 2024 8:17pmOctober 2024 8:17pm0.7 10 3/uL0.3-0.8Monocytes # (Auto)December 30, 2024 2:54pmOctober 2024 2:54pm0.8 10 3/uL0.3-0.8Urine pHOctober 2024 3:45pm6.05.0-9.0Monocytes # (Auto)December 31, 2024 4:40amOctober 2024 4:40am0.5 10 3/uL0.3-0.8Estimated GFR (Non- AmericanOctober 2024 4:19amOctober 2024 4:47gy98Vekya low normal>=60 mL/min/1.73m 2 Estimated GFR (Non- AmericanOctober 2024 4:42amOctober 29th, 2025 4:00yo35Xyvho low normal>=60 mL/min/1.73m 2Estimated GFR (Non- January 03, 2025 4:02amOctober 2024 4:71ou17Wytvu low normal>=60 mL/min/1.73m 2Estimated GFR (Non- AmericanNov2024 12:51pm January 26, 2025 12:51pm>60>=60 mL/min/1.73m 2Monocytes # (Auto)January 26, 2025 12:51pmNovember 2024 12:51pm0.5 10 3/uL0.3-0.8GlobulinOctober 2024 8:17pmOctober 2024 8:17pm4.2 g/dLMonocytes (%) (Auto)December 27, 2024 8:17pmOctober 2024 8:17pm8.6 %1.7-12.0Monocytes (%) (Auto) December 30, 2024 2:54pmOctober 2024 2:54pm6.9 %1.7-12.0Urine Protein December 30, 2024 3:45pmNEGATIVE mg/dLNEG/TRACEGlobulinOctober 2024 4:40amOctober 2024 4:40am3.7 g/dLMonocytes (%) (Auto)December 31, 2024 4:40amOctober 2024 4:40am6.8 %1.7-12.0GlobulinOctober 2024 4:19am January 01, 2025 4:19am3.6 g/dLGlobulinOctober 2024 4:42amOctober 2024 4:42am3.7 g/dLGlobulinOctober 2024 4:02amOctober 2024 4:02am3.6 g/dLGlobulinNovember 2024 12:51pmNovember 2024 12:51pm4.1 g/dL Monocytes (%) (Auto)January 26, 2025 12:51pmNovember 2024 12:51pm9.1 % 1.7-12.0Glucose LevelOctober 2024 8:17pmOctober 2024 8:17pm92 mg/dL 74-106Mean Platelet VolumeOctober 2024 8:17pmOctober 2024 8:17pm10.6 fL9.5-13.5Mean Platelet VolumeOctober 2024 2:54pmOctober 2024 2:54pm9.5 fL9.5-13.5Urine RBCOctober 2024 3:83jj4-3 #/HPFAbnormal (applies to non-numeric results)0-2Mean Platelet VolumeOctober 2024 4:40amOctober 2024 4:40am9.7 fL9.5-13.5Glucose LevelOctober 2024 4:19amOctober 2024 4:19am88 mg/sW52-063Liiclhs LevelOctober 2024 4:42amOctober 2024 4:42am96 mg/xB09-843Gikotnv LevelOctober 2024 4:02amOctober 2024 4:02am87 mg/xO93-720Noucwzq LevelNovember 2024 12:51pmNov2024 12:51pm84 mg/hS60-249Lvwa Platelet VolumeNovember 2024 12:51pm January 26, 2025 12:51pm9.7 fL9.5-13.5Potassium LevelOctober 2024 8:17pmOctober 2024 8:17pm5.1 mmol/L3.5-5.1Neutrophils # (Auto)December 27, 2024 8:17pmOctober 2024 8:17pm5.9 10 3/uL1.4-6.5Neutrophils # (Auto) December 30, 2024 2:54pmOctober 2024 2:54pm9.5 10 3/uLAbove high normal 1.4-6.5Urine Specific GravityOctober 2024 3:45pm<=1.005Abnormal (applies to non-numeric results)1.005-1.025Neutrophils # (Auto)December 31, 2024 4:40am December 31, 2024 4:40am5.3 10 3/uL1.4-6.5Potassium LevelOctober 2024 4:19amOctober 2024 4:19am3.8 mmol/L3.5-5.1Potassium LevelOctober 2024 4:42amOctober 2024 4:42am3.6 mmol/L3.5-5.1Potassium LevelOctober 2024 4:02amOctober 2024 4:02am3.3 mmol/LBelow low normal3.5-5.1 Potassium LevelNovember 2024 12:51pmNovember 2024 12:51pm4.1 mmol/L 3.5-5.1Neutrophils # (Auto)January 26, 2025 12:51pmNovember 2024 12:51pm3.2 10 3/uL1.4-6.5Sodium LevelOctober 2024 8:17pmOctober 2024 8:35kd079 mmol/LBelow low ezxanv721-871Wxbaogiczbq (%) (Auto)December 27, 2024 8:17pmOctober 2024 8:17pm72.8 %43.0-75.0Neutrophils (%) (Auto)December 30, 2024 2:54pmOctober 2024 2:54pm79.9 %Above high .0-75.0Urine Squamous Epithelial CellsOctober 2024 3:45pmNONE SEEN #/LPFNONE/RARE Neutrophils (%) (Auto)December 31, 2024 4:40amOctober 2024 4:40am75.6 % Above high hmaikq89.0-75.0Sodium LevelOctober 2024 4:19amOctober 2024 4:02hs328 mmol/X898-504Vmrctp LevelOctober 2024 4:42amOctober 2024 4:49xn766 mmol/L639-913Bsgtbf LevelOctober 2024 4:02amOctober 2024 4:86iu295 mmol/LBelow low lipjuz661-017Pwwdlp LevelNov2024 12:51pmNovember 2024 12:27mz477 mmol/Z667-308Hskvaykdist (%) (Auto) January 26, 2025 12:51pmNov2024 12:51pm58.2 %43.0-75.0Total BilirubinOctober 2024 8:17pmOctober 2024 8:17pm0.5 mg/dL0.2-1.0 Platelet CountOct2024 8:17pmOctober 2024 8:15zb458 10 3/uL 150-450Platelet CountOctober 2024 2:54pmOctober 2024 2:38vw841 10 3/gF818-932Vdums UrobilinogenOct2024 3:45pm0.2 EU/dL0.2-1.0Total BilirubinOctober 2024 4:40amOctober 2024 4:40am0.5 mg/dL0.2-1.0 Platelet CountOct2024 4:40amOctober 2024 4:40ig806 10 3/uL 150-450Total BilirubinOctober 2024 4:19amOctober 2024 4:19am0.5 mg/dL0.2-1.0Total BilirubinOctober 2024 4:42amOctober 2024 4:42am1.0 mg/dL0.2-1.0Total BilirubinOctober 2024 4:02amOctober 2024 4:02am 0.5 mg/dL0.2-1.0Total BilirubinNov2024 12:51pmNovember 2024 12:51pm0.4 mg/dL0.2-1.0Platelet CountNov2024 12:51pmNov2024 12:33sw429 10 3/sG976-496Vzycj ProteinOctober 2024 8:17pmOctober 2024 8:17pm6.9 g/dL6.4-8.2Red Blood CountOctober 2024 8:17pmOctober 2024 8:17pm3.01 10 6/uLBelow low normal4.70-6.10Red Blood CountOctober 2024 2:54pmOctober 2024 2:54pm2.64 10 6/uLBelow low normal4.70-6.10 Urine WBCOctober 2024 3:97ie7-34 #/HPFAbnormal (applies to non-numeric results)NONE SEENTotal ProteinOctober 2024 4:40amOctober 2024 4:40am 6.1 g/dLBelow low normal6.4-8.2Red Blood CountOctober 2024 4:40amOctober 2024 4:40am2.72 10 6/uLBelow low normal4.70-6.10Total ProteinOctober 2024 4:19amOctober 2024 4:19am5.8 g/dLBelow low normal6.4-8.2Total ProteinOctober 2024 4:42amOctober 2024 4:42am6.0 g/dLBelow low normal6.4-8.2Total ProteinOctober 2024 4:02amOctober 2024 4:02am5.6 g/dLBelow low normal6.4-8.2Total ProteinNovember 2024 12:51pmNovember 2024 12:51pm7.2 g/dL6.4-8.2Red Blood CountNovember 2024 12:51pm January 26, 2025 12:51pm3.50 10 6/uLBelow low normal4.70-6.10Red Cell Distribution WidthOctober 2024 8:17pmOctober 2024 8:17pm16.9 %Above high lwruaz98.0-15.0Red Cell Distribution WidthOctober 2024 2:54pmOctober 2024 2:54pm16.9 %Above high .0-15.0Urine YeastOctober 2024 3:45pmSEENAbnormal (applies to non-numeric results)NONE SEENMANY BUDDING YEASTMODERATE HYPHAERed Cell Distribution WidthOctober 2024 4:40amOctober 2024 4:40am16.9 %Above high enrlwq46.0-15.0Red Cell Distribution Width January 26, 2025 12:51pmNov2024 12:51pm18.0 %Above high normal 11.0-15.0Corrected White Blood CountOctober 2024 8:17pmOctober 2024 8:17pm8.1 10 3/uL4.0-11.0Corrected White Blood CountOctober 2024 2:54pm December 30, 2024 2:54pm11.9 10 3/uLAbove high normal4.0-11.0Corrected White Blood CountOctober 2024 4:40amOctober 2024 4:40am7.1 10 3/uL4.0-11.0 Corrected White Blood CountNovember 2024 12:51pmNovember 2024 12:51pm5.4 10 3/uL4.0-11.0Corrected White Blood CountOctober 2024 10:42am December 18, 2024 11:26am3.6 10*3/uLBelow low normal4.1-10.5[facility] [id number] [address] [facility] 71522Ojlrgcqdltw WBC CountOctober 2024 10:42amOctober 2024 11:26am3.6 10*3/uLBelow low normal4.1-10.5[facility] [id number] 1[address] [facility] 59296Cuu Blood CountOctober 2024 10:42amOctober 2024 11:26am3.00 10*6/uLBelow low normal3.90-5.60[facility] [id number] [address] [facility] 05858QjlhyjfbbaJxcvsei 2024 10:42amOctober 2024 11:26am 8.6 g/dLBelow low .0-17.0[facility] [id number] [address] [facility] 14433ZuzupjaytkPqzxkpv 2024 10:42amOctober 2024 11:26am 26.3 %Below low uppmwu87.8-50.0[facility] [id number] [address] [place] [address] 94236Bpbu Corpuscular VolumeOctober 2024 10:42amOctober 2024 11:26am87.8 fL83.5-101[facility] [id number] [address] [place] [address] 72913Jlxh Corpuscular HemoglobinOctober 2024 10:42amOctober 2024 11:26am28.6 pg27.5-35.2F[facility] [id number] [address] [place] [address] 22921Cnxr Corpuscular Hemoglobin ConcentOctober 2024 10:42am December 18, 2024 11:26am32.6 g/dL32.5-35.6F[facility] [id number] [address] [place] [address] 79938Uvo Cell Distribution WidthOctober 2024 10:42amOctober 2024 11:26am18.1 %Above high dyiouw10.0-14.8[facility] [id number] [address] [place] [address] 70024Yrnfurxg CountOctober 2024 10:42amOctober 2024 11:45de615 10*3/tG221-502WaeaedaovOur Lady Of Mercy Hospital [facility] [id number] [address] [place] [address] 37449Suez Platelet VolumeOctober 2024 10:42amOctober 2024 11:26am7.4 fL6.6-10.1[facility] [id number] [address] [place] [address] 24501Avvwrxic Distribution WidthOctober 2024 11:25amOctober 2024 11:48am18.74 %0.00-20.00[facility] [id number] [address] [facility] 45112Ovdvvzsadzf (%) (Auto)December 18, 2024 10:42amOctober 2024 11:26am65.6 %.[facility] [id number] [address] [facility] 79476Jmlmbvbjvrt (%) (Auto)December 18, 2024 10:42amOctober 2024 11:26am18.6 %.[facility] [id number] [address] [facility] 52724Xcslqgdzk (%) (Auto)December 18, 2024 10:42amOctober 2024 11:26am8.6 %.[facility] [id number] [address] [facility] 45107Yhawfwgcewd (%) (Auto)December 18, 2024 10:42amOctober 2024 11:26am6.5 %.[facility] [id number] [address] [facility] 96459Mczvmzgkh (%) (Auto)December 18, 2024 10:42amOctober 2024 11:26am0.7 %.[facility] [id number] [address] [facility] 32145Nrqeppdws RBC Relative Count (auto)December 18, 2024 10:42am December 18, 2024 11:26am0.0 /100{WBC}0-0.5[facility] [id number] [address] [facility] 34620Rvbvmcfgmft # (Auto)December 18, 2024 10:42amOctober 2024 11:26am2.4 10*3/uL1.8-7.7[facility] [id number] [address] [facility] 28251Ojzvrfpriuz # (Auto)December 18, 2024 10:42amOctober 2024 11:26am0.7 10*3/uLBelow low normal1.00-4.8[facility] [id number] [address] [facility] 64752Vzbxahnfa # (Auto)December 18, 2024 10:42amOctober 2024 11:26am0.3 10*3/uL0.0-0.8[facility] [id number] [address] [facility] 56841Rzizkvwhguc # (Auto)December 18, 2024 10:42amOctober 2024 11:26am0.2 10*3/uL0.0-0.45[facility] [id number] [address] [facility] 58611Ujwqxwiaa # (Auto)December 18, 2024 10:42amOctober 2024 11:26am0.0 10*3/uL0.0-0.2[facility] [id number] [address] [facility] 39017Sxnodloigwy TimeOctober 2024 4:39amOctober 2024 5:38am27.3 sAbove high normal9.0-12.9A hematocrit value greater than 55% may lead to inaccurate results in coagulation testing. Patientshaving hematocrit values >55% require a special collection tube for coagulation studies. Please c ontact the laboratory at [phone] for redraw instructions.[facility] [id number] [address] [facility] 82668Nxdeioqet Time International RatioOctober 2024 4:39am December 13, [...] patients with mechanical heart valves: 3 - 4.5[facility] [id number] [address] [facility] 84879Ydffjontn Partial Thromboplast TimeOctober 2024 4:39am December 13, 2024 5:38am38.9 sAbove high amvdbp47.1-36.5A hematocrit value greater than 55% may lead to inaccurate results in coagulation testing. Patients having hematocrit values >55% require a special collection tube for coagulation studies. Please contact the laboratory at [phone] for redraw instructions. [facility] [id number] [address] [facility] 59440Zvues ColorOctober 2024 12:19pmOctober 2024 12:38pm ColorlessYellowOur Lady Of Mercy Hospital [facility] [id number] [address] [facility] 13317Tfiew AppearanceOctober 2024 12:19pmOctober 2024 12:38pmClearClearOur Lady Of [facility]cy [facility] [id number] [address] [facility] 60861Kkjbt Specific GravityOctober 2024 12:19pmOctober 2024 12:38pm1.0041.001-1.030[facility] [id number] [address] [facility] 06433Lefvu pHOctober 2024 12:19pmOctober 2024 12:38pm5.5 5.0-9.0[facility] [id number] [address] [facility] 81582Jpsib Leukocyte EsteraseOctober 2024 12:19pmOctober 2024 12:38pm2+Above high normalNegMetroHealth [facility] [id number] [address] [place] [address] 73661Idqou NitriteOctober 2024 12:19pmOctober 2024 12:38pm NegativeNegativeOur Lady Of Mercy [facility] [id number] [address] [place] [address] 15020Ymimz ProteinOctober 2024 12:19pmOctober 2024 12:38pm Negative mg/dLNegMetroHealth Parma [facility] [id number] [address] [place] [address] 98780Bemjg Glucose (UA)December 12, 2024 12:19pmOctober 2024 12:38pmNormal mg/dLNormalOur [facility] Of [facility] [id number] [address] [place] [address] 21712Tmvok KetonesOctober 2024 12:19pmOctober 2024 12:38pm NegativeNegativeOur [facility] Of [facility] [id number] [address] [facility] 60708Ycjqh UrobilinogenOctober 2024 12:19pmOctober 2024 12:38pmNormal mg/dLNormalOur [facility] Of [facility] [id number] [address] [facility] 26274Rzpyb BilirubinOctober 2024 12:19pmOctober 2024 12:38pmNegativeNegativeOur [facility] Of [facility] [id number] [address] [facility] 95031Yzpkw Occult BloodOctober 2024 12:19pmOctober 2024 12:38pm1+Above high normalNegMetroHealth [facility] [id number] [address] [facility] 59523Voesz RBCOctober 2024 12:19pmOctober 2024 12:54ln8-5 [HPF]0-4[facility] [id number] [address] [facility] 48072Pfsgp WBCOctober 2024 12:19pmOctober 2024 12:39pm10- 19 [HPF]Above high normal0-4F[facility] [id number] [address] [facility] 67980Bewgv Squamous Epithelial CellsOctober 2024 12:19pmOctober 2024 12:39pmN/AFCl[facility] [id number] [address] [facility] 52260Ajlly BacteriaOctober 2024 12:19pmOctober 2024 12:39pmRare [HPF]None SeenOur Lady Of Mercy Hospital Ctr [id number] [address] [facility] 96177Lntxj Hyaline CastsOctober 2024 12:19pmOctober 2024 12:21mx7-5 [LPF]0-8[facility] [id number] [address] [facility] 23816Furtc MucusOctober 2024 12:19pmOctober 2024 12:39pm Rare [LPF][facility] [id number] [address] [facility] 58831Juwnepa LevelOctober 2024 7:13amOctober 2024 8:05am 84 mg/aP09-146EPW recommended reference rangeRandom Glucose Reference Range is dependent on time and content of last meal. Glucose of more than 200 mg/dL in a nonstressed, ambulatory subject supports the diagnosisof Diabetes Mellitus. [facility] [id number] [address] [facility] 73378Vvoxy Urea NitrogenOctober 2024 7:13amOctober 2024 8:05am20 mg/dL7-25[facility] [id number] [address] [facility] 62451LhadwrtnawOyqqhma 2024 7:13amOctober 2024 8:05am 1.20 mg/dL0.70-1.30[facility] [id number] [address] [facility] 02931Lqabkehgs GFR (CKD-EPI)December 17, 2024 7:13amOctober 2024 8:05am> 60.0 mL/MinOur [facility] Of Mercy Hospital [facility]tr [id number] [address] [place] 0065270Sodium LevelOctober 2024 7:13amOctober 2024 8:05am 135 mmol/LBelow low evaamm735-491GxkwycnloOur Lady Of Mercy Hospital [facility] [id number] [address] [place] 0065270Potassium LevelOctober 2024 7:13amOctober 2024 8:05am3.8 mmol/L3.5-5.1F[facility] [id number] [address] [facility] 59465Vyhrclxi LevelOctober 2024 7:13amOctober 2024 8:15wr806 mmol/B38-917BadjmdgneOur Lady Of Mercy Hospital [facility] [id number] [address] [place] 0065270Carbon Dioxide LevelOctober 2024 7:13amOctober 2024 8:05am26.3 mmol/L21.0-31.0[facility] [id number] [address] [facility] 61267Ekxff GapOctober 2024 7:13amOctober 2024 8:05am9.5 mEq/L6.0-15.0[facility] [id number] [address] [facility] 61973Tjdpius LevelOctober 2024 7:13amOctober 2024 8:05am 8.4 mg/dLBelow low normal8.6-10.3[facility] [id number] [address] [facility] 48139Mgkhzrcuu LevelOctober 2024 4:39amOctober 2024 5:37am 1.8 mg/dLBelow low normal1.9-2.7F[facility] [id number] [address] [facility] 72409Jmntv ProteinOctober 2024 5:23amOctober 2024 6:46am 6.6 g/dL6.4-8.9[facility] [id number] [address] [facility] 29672WsjbfyzNdegvbh 2024 5:23amOctober 2024 6:46am3.4 g/dLBelow low normal3.5-5.7F[facility] [id number] [address] [facility] 34853IbeaagqbBnoiowa 2024 5:23amOctober 2024 6:46am3.2 g/dLOur Lady Of Mercy Hospital [facility] [id number] [address] [facility] 33851Kqejgyv/Globulin RatioOctober 2024 5:23amOctober 2024 6:46am1.1[facility] [id number] [address] [facility] 52032Nkvoq BilirubinOctober 2024 5:23amOctober 2024 6:46am0.8 mg/dL0.3-1.0[facility] [id number] [address] [facility] 87626Vtafvxdtm Amino Transf (AST/SGOT)December 15, 2024 5:23am December 15, 2024 6:46am23 U/I16-27NxxeemokxOur Lady Of Mercy Hospital [facility] [id number] [address] [facility] 12529Xrxqpbk Aminotransferase (ALT/SGPT)December 15, 2024 5:23am December 15, 2024 6:46am10 U/L7-52[facility] [id number] [address] [place] [address] 64995Askkcwrb PhosphataseOctober 2024 5:23amOctober 2024 6:46am99 U/O27-974SjbczyjpvOur Lady Of Mercy Hospital [facility] [id number] [address] [place] [address] 93938Jufi LevelOctober 2024 4:39amOctober 2024 4:38pm11 ug/dLBelow low yalyti22-884MljwjpmqgOur Lady Of Mercy Hospital [facility] [id number] [address] [place] [address] 16066Lugmc Iron Binding CapacityOctober 2024 4:39amOctober 2024 4:07ai914 ug/dLBelow low zpwgxe787-665QlkvammfsOur Lady Of Mercy Hospital [facility] [id number] [address] [place] [address] 06172Izgh SaturationOctober 2024 4:39amOctober 2024 4:38pm 5.4 %Below low rlcojh27-45XyzubeblyOur Lady Of Mercy Hospital [facility] [id number] [address] [place] [address] 54667XdkjbnfdesvKvjgvek 2024 4:39amOctober 2024 4:29cg128 mg/dLBelow low ideibh071-445VeurvnflhOur Lady Of Mercy Hospital [facility] [id number] [address] [place] [address] 58741SlxbmrmxYoafuvs 2024 4:39amOctober 2024 5:29ed797.5 ng/mLAbove high mgnazf50.9-336.2F[facility] [id number] [address] [place] [address] 78210Peklnkgl I High SensitivityOctober 2024 4:39amOctober 2024 5:44am10 ng/L0-20The Troponin units of report have been changed to meet the Chest Pain Accreditation requirement, element EC5.M1l2. Troponin units are changed from pg/ml to ng/L. Also, the decimal is removed and results are in whole numbers.[facility] [id number] [address] [place] [address] 51175O-Ltoy Natriuretic PeptideOctober 2024 11:25amOctober 2024 2:02hc024.0 pg/mLAbove high normal5-100[facility] [id number] [address] [facility] 62276Hrdlrvotyze LevelOctober 2024 4:39amOctober 2024 5:37am89 mg/dLBelow low ycllmx906-326Sjta less than 200 mg/dl low riskChol 201- 239 mg/dl borderline riskChol 240 mg/dl and greater highriskOur [facility] Of [facility] [id number] [address] [facility] 41641XGT CholesterolOctober 2024 4:39amOctober 2024 5:37am 43 mg/eS54-43SCA CHOL ATP-III CLASSIFICATION Cardiovascular RiskHDL > or equal to 60 mg/dL LOWHDL < 40 mg/dL HIGHOur Lady Of Mercy Hospital Ctr [id number] [address] [facility] 69200Djmkdpzbfhdwp LevelOctober 2024 4:39amOctober 2024 5:37am57 mg/dL0-149TRIG ATP III CLASSIFICATIONTRIG less than 150 mg/dL NormalTRIG 150-199 mg/dL Borderline highTRIG 200-500 mg/dL High TRIG greater than 500 mg/dL Very highStandard traceable to the Center for Disease Conrtrol and Prevention (CDC) test method.[facility] [id number] [address] [facility] 06385OFV Cholesterol, CalculatedOctober 2024 4:39amOctober 2024 5:37am35 mg/dL0-100LDL ATP III CLASSIFICATIONLDL less than 100 mg/dL OptimalLDL 100-129 mg/dL Near or above ndgyxvzZWK402-268 mg/dL Borderline highLDL 160-189 mg/dL HighLDL greater than 189 mg/dL Very highOur Lady Of Mercy Hospital [facility]tr [id number] [address] [facility] 19656MRGG CholesterolOctober 2024 4:39amOctober 2024 5:37am11 mg/dLOur Lady Of Mercy Hospital [facility] [id number] [address] [facility] 71197Xiartwoiqah/HDL RatioOctober 2024 4:39amOctober 2024 5:37am2.1<5.0[facility] [id number] [address] [facility] 71433Qvvqngk B12 LevelOctober 2024 4:39amOctober 2024 5:39pg152 pg/mK545-172VmnikxfsjOur Lady Of Mercy Hospital [facility] [id number] [address] [facility] 71700XndtqhWpibrxh 2024 4:39amOctober 2024 5:03pm9.1 ng/mL >5.9Folate reference range: >5.9 ng/mlThe WHO technical consultation on folate and vitamin x43cznfkoalobmz has determined that folate concentrations lessthan 4 ng/ml are considered deficient.[facility] [id number] [address] [facility] 18987Bgraipxk Creatinine Clearance (ChemOctober 2024 7:13am December 17, 2024 8:05am47.08[facility] [id number] [address] [facility] 58272Dcramzpehs U9fLnchyep 2024 4:39amOctober 2024 12:30pm 5.5 %4.3-5.6Increased risk for diabetes: 5.7 - 6.4diabetes: >6.4glycemic control for adults with diabetes: <7.0[facility] [id number] [address] [place] [address] 34351Gipsgcset Average GlucoseOctober 2024 4:39amOctober 2024 12:46my213 mg/dLOur [facility] Of Mercy [facility] [id number] [address] [place] [address] 12657Qvkdvxp GlucoseOctober 2024 7:59amOctober 2024 8:35nv295 mg/dLRandom Glucose Reference Range is dependent on time and content of last meal. Glucose of more than 200 mg/dL in a nonstressed, ambulatory subject supports the diagnosis of Diabetes Mellitus.Point of Care testingBedside Glucose CommentOctober 2024 7:59amOctober 2024 8:76knOww1: cleaned meterPoint of Care testing Microbiology Results Procedure Source Result Collection Date/Time Result Date/Time Result Comment Performing Site Urine Culture Urine, Chou Catheter Klebsiella pneumoniae (ESBL) December 12, 2024 1:19pm December 15, 2024 9:21am [facility] [id number] [address] [facility] 68331Ditel CultureUrine, Clean-Voided MidstreamCandida albicans December 27, 2024 9:51pmOctober 2024 9:13amOur [facility] [id number] [address] [facility] 14791Hiaxm CultureUrine, Clean-Voided MidstreamCandida albicans December 30, 2024 4:45pmOctober 2024 8:51amOur [facility] [id number] [address] [facility] 50813Yqsuj, Clean-Voided MidstreamAchromobacter xylosoxidansOct2024 4:45pmOctober 2024 8:51amOur [facility] Of [facility] [id number] [address] [place], [place] [address] Diagnostic Imaging Reports Author Esa Cardoso [facility] SystemAuthoredAuadvanced care hospital [facility] [place] 2024 5:19pmReportDictated Date/TimeDictated ByStatusRadiology ReportFort Dix 2024 5:19pmHiro DavidDetwiler [facility] [place] [address] [place] [address] CT Scan Report Signed Patient: Irineo Mendes Jr MR# : [id number] : 1940 Acct:[id number] Age/Sex: 84 / M ADM Date: 5 [...] Cardoso M.D. 10/31/2024 5:26 PM Dictation Location: [facility]20 Transcribed By: [facility] 10/31/24 172 Dictated By: Esa Cardoso DO 10/31/24 1719 Signed By: <Electronically signed by Esa Cardoso DO in OV> 10/31/24 172 Author Esa Cardoso [facility] SystemAuthoredAuunm children's psychiatric centert 2024 5:26pmReportDictated Date/TimeDictated ByStatusRadiology ReportAuunm children's psychiatric centert 2024 5:26pmHiro DavidDetw[facility] [place] [address] [place] [address] CT Scan Report Signed Patient: Irineo Mendes Jr MR# : [id number] : 1940 Acct:[id number] Age/Sex: 84 / M ADM Date: 5 [...] Cardoso M.D. 10/31/2024 5:33 PM [facility] Trans[facility] By: [facility] 10/31/24 1733 Dictated By: Esa Cardoso DO 10/31/24 1726 Signed By: <Electronically signed by Esa Cardoso DO in OV> 10/31/24 1733 Author Esa Cardoso [facility] SystemAutmiami valley hospitalAuunm children's psychiatric centert 2024 5:35pmReportDictated Date/TimeDictated ByStatusRadiology ReportAugust 2024 5:35pmDigna DavidKettering Health [facility] [place] [address] [place] [address] XRay Report Signed Patient: Irineo Mendes Jr MR# : [id number] : 1940 Acct:[id number] Age/Sex: 84 / M ADM Date: 5 [...] alignment and degenerative change. Impression dictated by: Eas Cardoso M.D. 10/31/2024 5:40 PM Dictation Location: [place] [address] Transcribed By: [facility] 10/31/241739 Dictated By: Esa Cardoso DO 10/31/241734 Signed By: <Electronically signed by Esa Cardoso DO in OV> 10/31/241739 Author Shaquille Mahoney [facility] SystemAuthoredSeptember 2024 1:23pmReport Dictated Date/TimeDictated ByStatusRadiology ReportSeptember 2024 1:23pm Shaquille Mahoney II [facility] [place] [address] [place] [address] MRI Report Signed Patient: Irineo Mendes Jr MR# : [id number] : 1940 Acct:[id number] Age/Sex: 84 / M ADM Date: 5 Loc: [facility]: [facility] Dr: Keely Montoya APRN Copies to: [...] Mahoney M.D. 12/04/2024 1:30 PM Dictation Location: [place] [address] Transcribed By: [facility] 12/04/24 1330 Dictated By: Shaquille Mahoney II, MD 12/04/24 1323 Signed By: <Electronically signed by Shaquille Mahoney II, MD in OV> 12/04/24 1330 Author Shaquille Mahoney [facility] SystemAuthoredOctober 2024 1:42pmReportDictated Date/TimeDictated ByStatusRadiology ReportOctober 2024 1:42pmShaquille Mahoney II [place] [facility] CityompDetw[facility] [place] [address] XRay Report Signed Patient: Irineo Mendes Jr MR# : [id number] : 1940 Acct:[id number] Age/Sex: 84 / M ADM Date: 5 Loc: ER Room: Type: REG ER Attending Dr: Copies to: Sree Thao [...] Mahoney M.D. 12/12/2024 1:46 PM Dictation Location: [place] [address] Transcribed By: [facility] 12/12/24 1346 Dictated By: Shaqiulle Mahoney II, MD 12/12/24 1342 Signed By: <Electronically signed by Shaquille Mahoney II, MD in OV> 12/12/24 1346 Author Shaquille Mahoney [facility] SystemAuthoredOctcrittenden county hospital 2024 1:46pmReportDictated Date/TimeDictated ByStatusRadiology ReportOctcrittenden county hospital 2024 1:46pmShaquille Mahoney II [place] [facility]ompDetw[facility] [place] [address] [place] [address] CT Scan Report Signed Patient: Irineo Mendes Jr MR# : [id number] : 1940 Acct:[id number] Age/Sex: 84 / M ADM Date: 5 Loc: ER Room: Type: [facility] ER Attending Dr: Copies to: Sree Thao DO~ Ordering Provider: Sree Thao DO Date of Service: 12/12/24 CT/CT cervical spine wo con: fall ([id number]) CT/CT head/brain wo con: fall CT head/brain [...] Mahoney M.D. 12/12/2024 1:53 PM Dictation Location: [facility]23 Transcribed By: [facility] 12/12/24 1353 Dictated By: Shaquille Mahoney II, MD 12/12/24 1346 Signed By: <Electronically signed by Shaquille Mahoney II, MD in OV> 12/12/24 1353 Vital Signs Vital Reading Result Reference Range Collection Date/Time Height 66 [in_i] December 04, 2024 7:64nxZfbimf32.00 kgSeptember 2024 7:48cxSagkjw14 [in_i]December 13, 2024 12:70afCtfpyh26.00 kgOctober 2024 4:59amBody Gabneppqsso73.8 [degF]97.6-99.0[facility] 2024 11:00amHeart Rate95 /pcm25-507 December 18, 2024 1:46pmRespiratory rate20 /izz33-93Knibwhp 2024 1:46pm Oxygen saturation by Pulse httcbdni44 %95-100[facility] 2024 11:00amBP Pfftegyc174 mm[Hg]100-140Octcrittenden county hospital 2024 11:00amBP Gqvquwbvn14 mm[Hg]60-100 December 18, 2024 11:00am Advance Directives Advance Directive Response Recorded Date/ Time Advance Directives No April 05, 2023 3:20pm Insurance Providers Guarantor Irineo Mendes Jr Address [address] [place] [facility] [address]Nrwdhip Info.Home Phone: Coverage Status Update:2024 Payer Group Member ID Coverage Type Subscriber Relationship to Subscriber Effective Date Expiration Date Gadiel [place] Id: [id number] R Houlett , Jr Id: [id number] [address] [place] [address] Home Phone: Email: [email or web address] [id number] Mendes Jr Id: [id number] [address] [place] [facility] [address] Home Phone: Email: [email or web address] Encounters Encounter Location(s) Arrival/Admit Date Discharge/Departure Date Discharge/Departure Disposition Provider(s) Departed Clinical -CT Scan [facility] October 31, 2024 11:01am October 31, 2024 11:02am Discharged to home care or self care (routine discharge) Jovany Stovall MD Departed Physician/ Provider Office Visit -[facility] Neurosurgery November 06, 2024 9:43am November 06, 2024 10:19am Discharged to home care or self care (routine discharge) Keely Montoya APRN Departed [facility] November 29, 2024 11:23am November 29, 2024 11:24am Discharged to home care or self care (routine discharge) Keely Montoya APRN Departed Clinical -[facility] December 04, 2024 9:41am December 04, 2024 9:42am Discharged to home care or self care (routine discharge) Keely Montoya APRN Discharged Inpatient -[facility] December 12, 2024 2:39pm December 18, 2024 3:30pm Discharged/transfer red to senior care facility (SNF) with Sangita Knight MD Non-patient / Non-visit -[facility] O ctober 2024 9:17pm (Maki) Cristy Prince NP-CDeparted Referred-[facility] December 27, 2024 9:51pmOctober 2024 9:52pmDischarged to home care or self care (routine discharge)Dolly Shankar-patient / Non-visit- [facility] 2024 3:54pmDanae Perez DODeparted Referred-[facility] 4:45pmOctober 2024 4:46pmDischarged to home care or self care (routine discharge)Danae Perez DO Non-patient / Bnq-ygcyg-[facility] 2024 5:40am Sha Pepe MDNon-patient / Awc-qjnbt-Hadrb [facility] 2024 5:19amLatrice Dias-patient / Ldf-heogr-Gxegc [facility] 2024 5:42Latrice Griffith-patient / Cpj-mfjpo-Xlyqm [facility] 2024 5:02Miguel Pepe MD Non-patient / Tlf-uykrf-Ozbqb [facility] 2024 5:24am Latrice Dias-patient / Gwo-amigv-Juowx [facility] 2024 9:00amDanae Nix-patient / Qgo-slnoj-Qeqbr [facility] 2024 12:24pmCherelle Funes MD Recent Diagnosis Onset Date Admit Date Compression fracture of L1 lumbar vertebra Unkno wn November 06, 2024 9:43am Hx of decompressive lumbar laminectomy Unknown November 06, 2024 9:43am Intracranial hemorrhage [facility] 9:43[facility] Radicular [facility] pain [facility] 9:43am Severe back pain Unknown November 06, 2024 9:43am Falls Unknown December 12 2:39pm Pressure ulcer of coccygeal region, stage 2 Unkn own December 12, 2024 2:39pm Stage III pressure ulcer of right heel Unknown December 12, 2024 2:39pm Atrial fibrillation with RVR Unknown Dec 2:39pm Functional Status Observation Response Date Recorded [facility] 18, 2024 2:30pm Eating Patient at Baseline December 2:30pm Bathing Patient is Progressing Toward seline December 18, 2024 2:30pm Disability Status Patient [...] ulcer of right heelacuteOct2024 2:39pmAtrial fibrillation with RVRresolved December 12, 2024 2:39pm Plan of Treatment Author Keely Montoya [facility] SystemAuthoredSeptember 2024 9:29amThis patient is an 84-year-old male [...] which is why he was admitted to senior care facility posthospitalization. He still has some pain [...] Ordered Date Scheduled Date Urine Culture January 26, 2025 12:24pm Future Visits Future appointment information is unavailable Future Procedures Procedure Name Ordered Date Scheduled Date Admit Status Order December 12, 2024 1:39pm Octo heather 2024 1:39pm Discharge Order December 18, 2024 10:08am Octob er 2024 10:08am Urine Culture January 26, 2025 4:36pm Novem heather 2024 12:24pm Urine Culture January 25, 2025 4:28pm Novem 2024 9:00am Future Medications Future medication information is unavailable Patient Instructions Patient instructions are unavailable Goals Acute Goals Author Authored Date Exhibit optimal tissue perfu katarzyna * Exhibits adequate oxygenation and ventilation * Exhibits adequate cardiac output * Regains stable cardiac rhythm * Maintains optimal activity level * Maintains balanced intake and outputDesMercy Health St. [facility] 2024 2:48pmSkin integrity intact [facility] 2024 2:48pmMaintain/increase activity levels * Understands factors that may lead to activity intolerance * Helps perform self care activities * Maintains maximum range of motion * Increase/regain muscle mass and strength * Maintains VS WNL during activity * Maintain intact skin integrity Updated: 04/19/2022[facility] 2024 2:48pmAbsence of new skin breakdown [facility] 2024 2:48pmWound healing [facility]Oct[facility] 2024 2:48pmFall Prevention estOhio[facility] 2024 2:48pm Preferences Type Detail Treatment Intervention Code Status: Full Code
[2025-01-26] MEDS: BUDESONIDE 0.5 MG/2 ML AMPULE NEB IH (20:38)
[2025-01-26] MEDS: HEPARIN SODIUM (PORCINE) 5,000 UNIT/ML VIAL 5000 UNIT SUBQ (22:15)
[2025-01-27] VITALS (21 sets, daily range): BP systolic 98–132; BP diastolic 52–78; PULSE 61–114; TEMP 36.3–36.9; O2SAT 91–944
[2025-01-27] MEDS: CEFTAZIDIME 1,000 MG in 0.9 % SODIUM CHLORIDE 50 ML 100 MG IV ×2 (02:43→10:39)
[2025-01-27] MEDS: LEVOTHYROXINE SODIUM 75 MCG TABLET 150 MCG PO (06:34)
[2025-01-27 06:41] LABS: Hematocrit 27.2 % (42.0-54.0); Hemoglobin 8.8 g/dL (14.0-18.0); Mean Corpuscular HGB Conc 32.4 g/dL (29.9-35.2); Mean Corpuscular Hemoglobin 29.5 pg (25.9-34.0); Mean Corpuscular Volume 91.3 fL (80.0-94.0); Platelet Count 168 10^3/uL (150-450); Red Blood Count 2.98 10^6/uL (4.70-6.10); White Blood Count 6.0 10^3/uL (4.0-11.0)
[2025-01-27 06:58] LABS: Anion Gap 13.6; Blood Urea Nitrogen 16.0 mg/dL (7.0-18.0); Calcium 9.1 mg/dL (8.5-10.1); Carbon Dioxide 27.5 mmol/L (21.0-32.0); Chloride 103 mmol/L (98-107); Estimated GFR (African America >60 (>=60 mL/min/1.73m^2); Estimated GFR (Non-African Ame >60 (>=60 mL/min/1.73m^2); Glucose 80 mg/dL (74-106); Potassium 4.1 mmol/L (3.5-5.1); Sodium 140 mmol/L (136-145)
[2025-01-27] MEDS: HEPARIN SODIUM (PORCINE) 5,000 UNIT/ML VIAL 5000 UNIT SUBQ ×2 (08:26→21:27)
[2025-01-27] MEDS: SENNOSIDES/DOCUSATE SODIUM 1 TAB TABLET 2 TAB PO (08:26)
[2025-01-27] MEDS: MAGNESIUM OXIDE 400 MG TABLET PO (08:27)
[2025-01-27] MEDS: DILTIAZEM HCL 120 MG CAP.ER.24H PO (08:27)
[2025-01-27] MEDS: ALLOPURINOL 300 MG TABLET PO (08:27)
[2025-01-27] MEDS: PANTOPRAZOLE SODIUM 40 MG TABLET.DR PO (08:27)
[2025-01-27] MEDS: ACETAMINOPHEN 325 MG TABLET 650 MG PO (09:31)
--- NOTE | 2025-01-27 10:54 | CT_ITS ---
[address] [address] Patient Name: TAVO WALLIS JR MRN: [id number] date: 1940 Sex: M Assigned Patient Location: Current Patient Location: Accession/Order Number: [id number] Exam Date: 01/27/2025 13:15 Report Date: 01/27/2025 14:04 At the request of: SARA GUTIERREZ MD Procedure: CT chest w con CT CHEST WITH INTRAVENOUS CONTRAST: CLINICAL HISTORY: Effusion, infiltrates r/o malignancy COMPARISON: Chest 01/26/2025 TECHNIQUE: Spiral images were obtained through the chest following intravenous administration of IV contrast. This CT exam was performed using one or more following dose reduction techniques: Automated exposure control, adjustment of the mA and/or kV according to patient size, or use of iterative reconstruction technique. FINDINGS: Mediastinum:Thoracic aorta appears normal in caliber. Pulmonary trunk appears nondilated. Cardiomegaly without pericardial effusion. No lymphadenopathy. The esophagus is grossly unremarkable. Small hiatal hernia. Lungs:Small right-sided pleural effusion. There is compressive atelectasis. Bibasilar atelectasis/scarring. No consolidation or pneumothorax. Abd:Cholelithiasis. Soft tissues/Bones: No acute findings. Osseous structures demonstrate degenerative change. CT/CT chest w con IMPRESSION: CHF findings with cardiomegaly and small right pleural effusion. No consolidation to suggest pneumonia. Cholelithiasis. Impression dictated by: Ortega Groves Jr., DDaneODane 01/27/2025 2:04 PM Dictation Location: [place] Electronically authenticated by: [id number] Y Date: 01/27/2025 14:04
--- NOTE | 2025-01-27 10:59 | PM.HP ---
HPI H&P: HPI History of Present Illness Chief complaint: AMS UTI Narrative: Mr. Mendes is an 84-year-old gentleman who has been residing at the nursing facility. He was sent to the emergency room yesterday with change in condition. Patient is unable to provide meaningful information. His daughter at the bedside stated that he had subtle decline in his awakeness and ability to interact with family and nursing staff. No seizure or convulsion. No fever or chills. Not eating like he used to. He is sleeping more. Workup thus far came back as follow: CT head does not show acute intracranial process. Patient has a chronic Chou catheter. His UA is infected. His white count is normal. I have known Mr. Mendes from previous recent admission. His mental status is not far from baseline. Certainly better than when he came last admission with LIS and encephalopathy. Opioid HPI Opioid Management Most Recent Pain and Opioid Data: Last Pain Scale 6 Today, 10:36 Last Pain Intensity 0 01/23/25, 14:01 Last Pain Assessment Today, 10:00 Last MAR Pain Assessment Today, 10:36 Last ORT Total Score 0 12/30/24, 20:15 Last ORT Risk Category Low Risk 12/30/24, 20:15 Review of Systems ROS Narrative Patient has significant functional disability. He spends most of his days in bed. May be able to ambulate to the bedside chair or close bathroom otherwise unable to walk long distance. Diminished ability to engage in complex conversation. 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 - Diverticulum of esophagus, acquired (ICD-10) Encounter for screening colonoscopy ?Z12.11 - Encounter for screening for malignant neoplasm of colon (ICD-10) Sleep apnea ?G47.30 - Sleep apnea, unspecified (ICD-10) Gastric ulcer ?K25.9 - Gastric ulcer, unspecified as acute or chronic, without hemorrhage or perforation (ICD-10) DJD (degenerative joint disease) ?M19.90 - Unspecified osteoarthritis, unspecified site (ICD-10) Dehydration ?E86.0 - Dehydration (ICD-10) Altered mental state ?R41.82 - Altered mental status, unspecified (ICD-10) Falls ?R29.6 - Repeated falls (ICD-10) Bladder retention ?R33.9 - Retention of urine, unspecified (ICD-10) Constipation ?K59.00 - Constipation, unspecified (ICD-10) Pleural effusion ?J90 - Pleural effusion, 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 (ICD-10) Bakers cyst ?M71.20 - Synovial cyst of popliteal space [[place]], unspecified knee (ICD-10) Cardiomyopathy ?I42.9 - Cardiomyopathy, unspecified (ICD-10) Cellulitis ?L03.90 - Cellulitis, unspecified (ICD-10) Gout ?M10.9 - Gout, unspecified (ICD-10) Meningioma, spinal ?D32.1 - Benign neoplasm of spinal meninges (ICD-10) Tinnitus ?H93.19 - Tinnitus, unspecified ear (ICD-10) BPH (benign prostatic hyperplasia) ?N40.0 - Benign prostatic hyperplasia without lower urinary tract symptoms (ICD-10) Insomnia ?G47.00 - Insomnia, unspecified (ICD-10) PVD (peripheral vascular disease) ?I73.9 - Peripheral vascular disease, unspecified (ICD-10) CHF (congestive heart failure) ?I50.9 - Heart failure, unspecified (ICD-10) Cataracts, bilateral ?H26.9 - Unspecified cataract (ICD-10) Low back pain ?M54.50 - Low back pain, unspecified (ICD-10) Hypercholesterolemia ?E78.00 - Pure hypercholesterolemia, unspecified (ICD-10) Surgical History (Updated 04/13/24 @ 10:32 by Yoli High RN) H/O lithotripsy ?Z98.890 - Other specified postprocedural states (ICD-10) H/O laminectomy ?Z98.890 - Other specified postprocedural states (ICD-10) H/O sinus surgery ?Z98.890 - Other specified postprocedural states (ICD-10) History of back surgery ?Z98.890 - Other specified postprocedural states (ICD-10) History of esophagogastroduodenoscopy (EGD) ?Z98.890 - Other specified postprocedural states (ICD-10) History of total knee arthroplasty ?Z96.659 - Presence of unspecified artificial knee joint (ICD-10) History of hip replacement ?Z96.649 - Presence of unspecified artificial hip joint (ICD-10) Previous back surgery ?Z98.890 - Other specified postprocedural states (ICD-10) History of shoulder surgery ?Z98.890 - Other specified postprocedural states (ICD-10) Family History (Updated 04/13/24 @ 10:34 by Yoli High RN) Other Alzheimers disease Cirrhosis Family history of cancer Family history of diabetes mellitus Family history of hypertension Family history of myocardial infarction Heart disease Social History (Updated 04/13/24 @ 10:36 by Yoli High RN) Within the past year, how often did you have a drink containing alcohol: 4 or more times a week Smoking status: Former smoker Second hand tobacco smoke exposure: Yes Non-prescribed substance use: denies use Previous occupational history: Retired- [employer] Highest level of school completed/degree received: high school graduate Little interest or pleasure in doing things: not at all Feeling down, depressed, or hopeless: not at all Meds Home Medications and Allergies Home Medications ?Medication ?Instructions ?Recorded ?Confirmed ?Type allopurinol 300 mg tablet 300 mg PO DAILY 01/06/23 01/27/25 History atorvastatin 40 mg tablet 40 mg PO .QHS 01/06/23 01/27/25 History levothyroxine 150 mcg tablet 150 mcg PO .qd 04/13/24 01/27/25 History magnesium oxide 400 mg (241.3 mg 400 mg PO .qd 04/13/24 01/27/25 History magnesium) tablet budesonide 0.5 mg/2 mL suspension 0.5 mg inhalation Q12H 12/30/24 01/27/25 History for nebulization nystatin 100,000 unit/gram topical 1 applic topical BID 12/30/24 01/27/25 History powder (Klayesta) pramipexole 0.25 mg tablet 0.25 mg PO QDAY PRN tremors 12/30/24 01/26/25 History acetaminophen 325 mg tablet 650 mg (2 x 325 mg) PO Q6H PRN 01/04/25 01/27/25 Rx (Tylenol) Pain or fever #0 tabs diltiazem HCl 120 mg 120 mg PO QD #0 caps 01/04/25 01/27/25 Rx capsule,extended release 24 hr heparin (porcine) 5,000 unit/mL 5,000 unit subcut Q12H #0 mL 01/04/25 01/27/25 Rx injection solution ipratropium 0.5 mg-albuterol 3 mg 3 ml inhalation Q8H PRN Wheezing 01/04/25 01/26/25 Rx (2.5 mg base)/3 mL nebulization #0 mL soln pantoprazole 40 mg tablet,delayed 40 mg PO DAILY #30 tabs 01/04/25 01/27/25 Rx release polyethylene glycol 3350 17 gram 17 g PO QD PRN Constipation #0 ea 01/04/25 01/26/25 Rx oral powder packet potassium chloride 20 mEq 10 meq (1/2 x 20 mEq) PO DAILY #0 01/04/25 01/27/25 Rx tablet,extended release(part/cryst) tabs baclofen 10 mg tablet 10 mg PO Q8H PRN muscle spasm 01/26/25 01/27/25 History bumetanide 1 mg tablet 1 mg PO DAILY 01/26/25 01/27/25 History nitrofurantoin 100 mg PO BID 01/26/25 01/27/25 History monohydrate/macrocrystals 100 mg capsule (Macrobid) collagenase clostridium histo. 250 1 applic topical DAILY 01/27/25 01/27/25 History unit/gram topical ointment (Santyl) sennosides 8.6 mg-docusate sodium 2 tab PO .QHS 01/27/25 01/27/25 History 50 mg tablet sodium chloride 1,000 mg soluble 2,000 mg PO DAILY 01/27/25 01/27/25 History tablet Allergies Allergy/AdvReac Type Severity Reaction Status Date / Time fentanyl (From Duragesic) Allergy Unknown Agitated Verified 01/26/25 12:04 indomethacin (From Indocin) Allergy Unknown Agitated Verified 01/26/25 12:04 Penicillins Allergy Unknown Rash Verified 01/26/25 12:04 zolpidem (From Ambien) Allergy Agitated Verified 01/26/25 12:04 Exam Narrative Exam Narrative: Patient is lying in bed. Awake and alert. Able to look at me and focus. Able to answer few questions. Symmetrical motor and tone. Able to lift up his arms against mild resistance. Able to lift up his legs against gravity but not against significant resistance. Very cachectic and frail in appearance. Bitemporal muscle wasting. Significant loss of subcutaneous fat. Significant loss of muscle wasting. Severe kyphosis of the chest. Chest is clear otherwise. Heart is irregular. Abdomen is soft, scaphoid in appearance, nontender. Stage II right heel ulceration which had improved since last time I saw him. Constitutional Vital Signs, click to edit/add: Last Vital Signs Temp 98.5 F 01/27/25 07:38 Pulse 70 01/27/25 10:00 Resp 18 01/27/25 07:38 BP 101/64 01/27/25 07:38 Pulse Ox 93 L 01/27/25 07:38 O2 Del Method Room Air 01/27/25 07:38 Results Labs Labs: Short CBC 01/26/25 01/27/25 Range/Units 12:51 06:10 WBC 5.4 6.0 (4.0-11.0) 10^3/uL Hgb 10.4 L 8.8 L (14.0-18.0) g/dL Hct 32.2 L 27.2 L (42.0-54.0) % Plt Count 164 168 (150-450) 10^3/uL BMP 01/26/25 01/27/25 12:51 06:10 Sodium 139 140 Potassium 4.1 4.1 Chloride 103 103 Carbon Dioxide 31.8 27.5 BUN 17.0 16.0 Creatinine 1.02 1.06 Glucose 84 80 Calcium 9.7 9.1 Cardiac Enzymes 01/26/25 Range/Units 12:51 Total Creatine Kinase 29 L (39-308) U/L Liver Function 01/26/25 Range/Units 12:51 Total Bilirubin 0.4 (0.2-1.0) mg/dL AST 17 (15-37) U/L ALT 16 (16-63) U/L Alkaline Phosphatase 119 H (46-116) U/L Albumin 3.1 L (3.4-5.0) g/dL Urine 01/26/25 Range/Units 12:24 Urine Color Lt. yellow (YELLOW) Urine Clarity Cloudy A (CLEAR) Urine pH 8.0 (5.0-9.0) Ur Specific Suches 1.010 (1.005-1.025) Urine Protein 100 A (NEG/TRACE) mg/dL Urine Glucose (UA) Negative (NEGATIVE) mg/dL Assessment and Plan Assessment and Plan (1) Pleural effusion: (2) Catheter-associated urinary tract infection: Plan CAUTI present on admission Last admission, patient grew Bibiana and Achromobacter that is multidrug resistant I started patient on ceftazidime Urine culture is pending. Chou catheter was changed yesterday. Altered mental status, likely mild degree of metabolic encephalopathy secondary to UTI. CT head is negative for acute intracranial process Patient is moving his upper and lower extremities symmetrically. Mental status is not far from baseline based on my examination as compared to last admission status. Continue to monitor his mentation over the next 24 to 48 hours. Chronic A-fib with chronic elevation of the troponin. Patient denies any chest pain. EKG does not show ST elevation or depression. His troponin has been elevated above 120 since April 2024. No old records available. Recent echocardiogram showed normal ejection fraction. Severe biatrial dilatation. I do not suspect that patient is having acute coronary syndrome or acute plaque rupture Continue Cardizem. Last admission at [facility], coronary care unit nurse recommended against anticoagulation due to previous recent history of cerebral hemorrhage. Last admission at [facility], coronary care unit nurse recommended consideration for Watchman device. Daughter declined to proceed at that time. Discussed with his daughter who is interested in medical management without intervention. Anemia, no evidence of acute blood loss. Patient will likely require to have anemia workup to be done in the outpatient setting to be handled by PCP in collaboration with other needed outpatient providers. This may include but not limited to EGD, colonoscopy, referral to see hematology and other needed age-appropriate cancer screening. Right heel ulcer that previously grew MRSA patient was treated with oral Zyvox. The wound is healing at this time no evidence of drainage. CAT scan of the foot was completed last month which does not show any evidence of bony destruction to suggest osteomyelitis. I ordered arterial study last admission which does not show any significant hemodynamic or arterial compromise. I ordered MRI but the patient could not lay down for the MRI due to severe kyphosis. Continue wound care at this time. Pleural effusion, parenchymal abnormality seen on CT abdomen Requested CT chest to take a better look at the lung parenchyma, assess the degree of effusion and rule out the possibility of underlying malignancy. Significant cachexia, frailty, muscle wasting, sarcopenia, failure to thrive, moderate to severe protein calorie malnutrition, significant loss of subcutaneous fat Additional cachexia and weight loss investigation may be needed to rule out underlying malignancy. This will need to be done post acute care if her daughter wants to pursue that option. For now we will start patient on protein oral supplementation. 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 Unable to engage in complex conversation. Patient is barely able to lift up his legs against gravity if any. Prior to that patient was able to take a few steps and pivot. I believe he is a Iveth lift at nursing facility. Significant muscle wasting and atrophy, sarcopenia Recommend protein oral supplementation to boost his nutritional state. Recommend PT OT eval and treatment. Prognostication and goals of care discussion Overall patient has poor prognosis given his age, significant decline in his functional status, cachexia, frailty and failure to thrive. His ECOG score is 3- 4. His MELENDREZ score is 1. PPS is 30% FAST score is 7 A-B I had a conversation with his daughter regarding his overall declining condition and prognostication. Daughter understood the situation very well and agreed not to put him through any heroic measures such as intubation, shocks, life support, chest compression or any other aggressive diagnostic and/or therapeutic intervention. She is interested in making sure that her dad is comfortable and treated with patient dignity of the last phase of his life. Her wishes are consistent with a DNR CCA status with more focus toward comfort care approach rather than aggressive care that may be futile at this time Urinary Catheter Management Urinary Catheter Management Urethral: Cath placed during this visit: no
[2025-01-27] MEDS: OXYCODONE HCL 5 MG TABLET PO (11:15)
[2025-01-27] MEDS: 0.9 % SODIUM CHLORIDE 500 ML 70 ML IV (11:16)
[2025-01-27] MEDS: BUDESONIDE 0.5 MG/2 ML AMPULE NEB IH ×2 (11:29→20:53)
[2025-01-27] MEDS: MORPHINE SULFATE 2 MG/ML SYRINGE 1 MG IV (13:28)
[2025-01-27] MEDS: LEVOFLOXACIN IN DEXTROSE 5 % 500 MG/100 ML PREMIX 100 MG IV (13:42)
[2025-01-27] MEDS: ATORVASTATIN CALCIUM 40 MG TABLET PO (21:27)
[2025-01-28] VITALS (21 sets, daily range): BP systolic 103–146; BP diastolic 54–79; PULSE 48–85; TEMP 36.5–36.8; O2SAT 91–96
[2025-01-28 05:24] LABS: Hematocrit 26.4 % (42.0-54.0); Hemoglobin 8.3 g/dL (14.0-18.0); Mean Corpuscular HGB Conc 31.4 g/dL (29.9-35.2); Mean Corpuscular Hemoglobin 28.8 pg (25.9-34.0); Mean Corpuscular Volume 91.7 fL (80.0-94.0); Platelet Count 168 10^3/uL (150-450); Red Blood Count 2.88 10^6/uL (4.70-6.10); White Blood Count 4.8 10^3/uL (4.0-11.0)
[2025-01-28 05:35] LABS: Anion Gap 8.5; Blood Urea Nitrogen 17.0 mg/dL (7.0-18.0); Calcium 8.7 mg/dL (8.5-10.1); Carbon Dioxide 27.7 mmol/L (21.0-32.0); Chloride 102 mmol/L (98-107); Estimated GFR (African America >60 (>=60 mL/min/1.73m^2); Estimated GFR (Non-African Ame >60 (>=60 mL/min/1.73m^2); Glucose 90 mg/dL (74-106); Potassium 4.2 mmol/L (3.5-5.1); Sodium 134 mmol/L (136-145)
[2025-01-28] MEDS: ACETAMINOPHEN 325 MG TABLET 650 MG PO ×2 (05:49→21:16)
[2025-01-28] MEDS: LEVOTHYROXINE SODIUM 75 MCG TABLET 150 MCG PO (05:49)
--- NOTE | 2025-01-28 08:00 | CM.NOTE ---
Addendum entered by Meme Cabral 01/28/25 13:59: Discussed with Dr. Pepe final urine culture results. Original Note: Rounds made with Dr. Pepe, discussed plan of care with pt. No discharge today, continue treatment as ordered. PT and OT will evaluate pt for discharge needs.
[2025-01-28] MEDS: PANTOPRAZOLE SODIUM 40 MG TABLET.DR PO (09:24)
[2025-01-28] MEDS: HEPARIN SODIUM (PORCINE) 5,000 UNIT/ML VIAL 5000 UNIT SUBQ ×2 (09:24→21:14)
[2025-01-28] MEDS: DILTIAZEM HCL 120 MG CAP.ER.24H PO (09:24)
[2025-01-28] MEDS: MAGNESIUM OXIDE 400 MG TABLET PO (09:25)
[2025-01-28] MEDS: SENNOSIDES/DOCUSATE SODIUM 1 TAB TABLET 2 TAB PO (09:25)
[2025-01-28] MEDS: OXYCODONE HCL 5 MG TABLET PO (09:25)
[2025-01-28] MEDS: ALLOPURINOL 300 MG TABLET PO (09:25)
--- OUTSIDE RECORDS SUMMARY | 2025-01-28 10:08 | XMS_ITS | Clinical Summary ---
Author Organization [facility] Address [address] [place] [id number] Care Team Providers Care Machining Supervisor Name Role Phone Unavailable Primary Care Provider Unavailabl e Allergies Active AllergyReactionsCriticalityNoted DateCommentsPenicillinsMental Status Ivqruv7604/07/2004 Medications MedicationSigDispense QuantityRefillsLast FilledStart DateEnd DateStatus SYNTHROID 150 MCG TABLET Take one(1) tablet daily.Active ALLOPURINOL 300 MG TABLET Take one(1) tablet daily.Active HYTRIN 2 MG CAPSULE Take one(1) capsule daily.Active BUMEX 2 MG TABLET Take one(1) tablet daily.Active CELEBREX 200 MG CAPSULE Take one(1) capsule daily.Active LEXAPRO 5 MG TABLET take one half [id number] VICODIN 5/500 TABLET as krvwcf306Active K-DUR 20 MEQ TABLET SA Take one(1) tablet daily.Active Active Problems No known active problems Family History Medical HistoryRelationCommentsAlzheimer's DiseaseMotherCoronary Artery Disease MotherHad CABG when she was olderThyroidSisterHypothyroidismobesitySister RelationStatusCommentsMotherSister Social History Tobacco UseTypesPacks/DayYears UsedDateSmoking Tobacco: DsycvqIajdnyaoft435 04/07/1964 - 04/07/1994 Comments:Started in [employer] Alcohol UseStandard Drinks/WeekCommentsYes0 (1 standard drink = 0.6 oz pure alcohol)A few beers every daySex and Gender InformationValueDate RecordedSex Assigned at BirthNot on fileLegal OwtErgc93/02/2012 10:06 AM ESTGender Identity Not on fileSexual OrientationNot on fileOccupationIndustryJob Start DateJob End DateNot on fileNot on fileNot on fileNot on file Last Filed Vital Signs Vital SignReadingTime TakenCommentsBlood Kbjvvymt322/85006/28/2024 10:50 AM EDT Mghdf3770 10:50 AM PKTJwykraaztzl99.9 ??C (98.5 ??F)06/28/2024 10:50 AM EDTRespiratory Pmtf721306/28/2024 10:50 AM EDTOxygen Avsygyydip54%06/28/2024 10:50 AM EDTInhaled Oxygen Concentration--Olkxsw861.2 kg (276 lb)04/07/2004 3:44 PM ESTHeight--Body Mass Index-- Plan of Treatment Health MaintenanceDue DateLast DoneCommentsAnxiety Bkikaroft09/11/1960Depression Rdbqbjgpo79/11/1960DTaP,Tdap,Td Vaccine (1 - Tdap)1Diabetes Screening 1986Pneumococcal Vaccine: 50+ (1 of 1 - PCV)07/16/1991Shingrix Vaccine (1 of 2)07/16/1991RSV Vaccine (1 - 1-dose 75+ series)2016Advance Directive Pwfydqasvt36/01/2025ovid-19 Vaccine (1 - 2024- season)2024Influenza Vaccine (#1)2024 Insurance
--- OUTSIDE RECORDS SUMMARY | 2025-01-28 10:08 | XMS_ITS | Patient Health Record ---
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[place] arteries of extremities, bilateral legs (I70.203) ActiveconfirmedProblemAcquired hammer toe of right foot (2881086164056268)Other hammer toe(s) (acquired), right foot (M20.41)ActiveconfirmedProblemAcquired hammer toe of left foot (9146264457480245)Other hammer toe(s) (acquired), left foot (M20.42)Activeconfirmed Plan Of Treatment No Information Insurance Providers Payer Name Payer Address Payer Phone Subscriber Number Group Number Insured Name Patient Relationship to Insured Coverage Start Date Coverage End Date Medicare Part B J-15 Part [facility] Claims [address] [place] [address] [id number], WilliamSelf - [facility] [address] [place], [place] [id number], WilliamSelf - patient is the insured Medical (General) History Medical History History ICD Code hypertension hyperlidemiaatrial fibrillationoveractive bladderlumbar spondylosisheart murmur stomach ulcerspoor circulationthyroid diseaseskin conditionsSurgical History Surgery Date(Month/Year)
--- OUTSIDE RECORDS SUMMARY | 2025-01-28 10:08 | XMS_ITS | Encounter Summary ---
Author Organization [facility] Address [address] [place] [address] Care Team Providers Care Arts And Crafts Instructor Name Role Phone Unavailable Primary Care Provider Unavailabl e Encounter Details DateTypeDepartmentCare Team (Latest Contact Info)Okzxykzkoxs25/21/2025External Result Encounter [facility] External Department Unsolicited Mendy Bull MD [address] [facility] [address] [place] [address] Social History Tobacco UseTypesPacks/DayYears UsedDateSmoking Tobacco: Never AssessedSex and Gender InformationValueDate RecordedSex Assigned at BirthNot on fileLegal Sex Male05/19/2022 6:54 PM EDTGender IdentityNot on fileSexual OrientationNot on filedocumented as of this encounter Plan of Treatment Not on file documented as of this encounter Procedures Procedure NamePriorityDate/TimeAssociated DiagnosisCommentsAEROBIC BELLA CHARGE (NMIC56)STAT103/27/2024 9:00 AM EST CULTURE, URINE, RZVSXVMWOLG85/21/2025 9:00 AM EST documented in this encounter Results * (ABNORMAL) AEROBIC BELLA CHARGE (NMIC56) (01/25/2025 9:00 AM EST)ComponentValue Ref RangeTest MethodAnalysis TimePerformed AtPathologist SignatureAMIKACIN<16 (S)01/27/2025 9:27 AM [facility] CtrAZTREONAM<4(I) 01/27/2025 9:27 AM [facility] CtrCEFEPIME<2(S)01/27/2025 9:27 AM [facility] CtrCEFTAZIDIME<1(I)01/27/2025 9:27 AM [facility] CtrCEFTAZIDIME/AVIBACTAM<4(S)01/27/2025 9:27 AM [facility] CtrCEFTOLOZANE/TAZOBACTAM<2(S)01/27/2025 9:27 AM [facility] CtrCIPROFLOXACIN<0.25(S)01/27/2025 9:27 AM [facility] CtrGENTAMICIN<2(S)01/27/2025 9:27 AM [facility] CtrLEVOFLOXACIN<0.5(S)01/27/2025 9:27 AM [facility] CtrMEROPENEM<1(S)01/27/2025 9:27 AM [facility] CtrPIPERACILLIN/TAZOBACTAM<8(I)01/27/2025 9:27 AM [facility] CtrTOBRAMYCIN<2(S)01/27/2025 9:27 AM [facility] CtrSpecimen (Source)Anatomical Location / LateralityCollection Method / VolumeCollection TimeReceived TimeClean-Voided Midstream (Clean Void Midstream)01/25/2025 9:00 AM EST01/25/2025 4:28 PM EST Narrative Authorizing ProviderResult TypeResult StatusMendy Bull MDFIRNECHESSFinal Result Performing OrganizationAddressCity/State/ZIP CodePhone Number [facility] [address] [place] [address], [facility] [address] [place] [address] * Urine culture (01/25/2025 9:00 AM EST)ComponentValueRef RangeTest Method Analysis TimePerformed AtPathologist SignatureFRMC ORGANISMPseudomonas ovuuiowcou82/23/2025 9:27 AM [facility] CtrCOLONY COUNT >100,8818403/29/2024 9:27 AM [facility] CtrSpecimen (Source) Anatomical Location / LateralityCollection Method / VolumeCollection Time Received TimeClean-Voided Midstream (Clean Void Midstream)01/25/2025 9:00 AM EST01/25/2025 4:28 PM EST Narrative [facility] - 01/27/2025 9:30 AM EST Diagnosis: ALTERED MENTAL STATUS Comment: Authorizing ProviderResult TypeResult StatusMendy Bull MDLAB MICROBIOLOGY - GENERAL ORDERABLESFinal ResultPerforming OrganizationAddressCity/State/ZIP Code Phone Number [facility] [address] [place] [address], [facility] [address] [place] [address] documented in this encounter Visit Diagnoses Not on filedocumented in this encounter
--- OUTSIDE RECORDS SUMMARY | 2025-01-28 10:09 | XMS_ITS | Continuity of Care Document ---
Author Organization [facility] Address [address] [place], [place] [address] Insurance Providers Payer Plan Claims Address Claims Phone Policy Number Group Number Relation Employer Guarantor Name Guarantor Guarantor Address Guarantor Phone [facility] [address], [id number] Linda Slaterborisroel, Kellie [place], [place] [address] [address], [place], [place] [address]cfo:[phone] [id number] Jadynroel, Nelli Maurer [place], [place] [address] [address] [address], [place], [place] [id number] Irineo Randell, [place] [address] Problems Condition ICD9 code ICD10 code SNOMED code Start Date End Date S tatus Encephalopathy, unspecified G93.4015ActiveObstructive and reflux uropathy, rckrbvhvbiiZ91.9 5ActiveBenign prostatic hyperplasia with lower urinary tract symptoms N40.1105ActiveAcute kidney failure, wpznrcmmyxqA26.915Active Cellulitis of right lower limbL03.202055ActiveUrinary tract infection, site not cyrkvxvfzM34.0105ActivePressure ulcer of right heel, stage 2 L89.019005ActiveBenign neoplasm of spinal zostuwumJ16.1105Active Anemia, jfckfhpgkcpE80.910/29/2025ActivePure hypercholesterolemia, unspecified E78.0010tiveInsomnia, bjckdxgdhraF30.001tiveSleep apnea, xgpeljwgcxjE36.3010tiveHypothyroidism, hhftwploxseW88.91 ActiveTinnitus, unspecified earH93.191tiveUnspecified aqfmgabaD34.9 10tiveLongstanding persistent atrial etibquwcngblJ35.1110 ActiveCardiomyopathy, jitjhwivzpbJ84.91tivePeripheral vascular disease, aduchwupnihT68.91tivePleural effusion, not elsewhere yebzizwfcoL4594tiveDiverticulum of esophagus, ssnqupzqL90.510 ActiveGastric ulcer, unspecified as acute or chronic, without hemorrhage or plofhtyxufiQ79.91tiveAcute on chronic diastolic (congestive) heart clixezoL89.3310tiveGout, cakxygyjasqC61.91tiveLow back pain, xofweqtklhvH45.5010tiveUnspecified osteoarthritis, unspecified siteM19.9010tiveSynovial cyst of popliteal space [[place]], unspecified kneeM71.tiveChronic kidney disease, utukbfkitobR48.91 ActiveAltered mental status, jtuglyhjrvjI05.8210tivePresence of unspecified artificial hip eihcaL94.73631tiveRheumatoid arthritis with rheumatoid factor of multiple sites without organ or systems jumipsjwzvdQ03.79 01/04/2025tiveOther specified postprocedural fxwvoiJ80.42530tive Chronic peptic ulcer, site unspecified, without hemorrhage or dlqzxtxysypZ33.7 01/04/2025tiveFoot drop, left footM21.89575tiveSpinal stenosis, lumbar region with neurogenic vdejwjscvaigR64.31605tiveOther intervertebral disc degeneration, lumbar region with discogenic back pain and lower fggdwdmjswcmcZ91.710405ActiveAge-related osteoporosis without current pathological tatzmvelK89.0105ActiveUnspecified kyphosis, site nprqlaprjajF58.141925ActiveRetention of urine, ownvbjgbxtcK05.91 ActivePersonal history of other diseases of the circulatory jahssmT43.79 01/04/2025tiveWedge compression fracture of first lumbar vertebra, subsequent encounter for fracture with omyxzkpxkmjhbbR27.010D095ActiveShortness of yetakvH94.0218346ZomvaxPgwjuettdwkW54.610tiveNutritional deficiency, ojnqfsaybwyL75.91tiveMuscle weakness (generalized)M62.81 01/05/2025tiveCandidiasis of skin and nailB37.tiveDifficulty in walking, not elsewhere kaxirlebbyC13.211tiveDysphagia, unspecified R13.1011tiveOther speech hyvaoqcpendsB40.8901/07/2025tiveMethicillin resistant Staphylococcus aureus infection, unspecified siteA49.021 ActiveHypo-osmolality and awcpcwntwhytF52.1115Active Results Test Result Date/Time Value / Unit Interp. Refere nce Range Tuberculosis reaction wheal[ 01420-3] Tuberculosis reaction wheal [39610-4] 01/16/2025 05:00 PM 0 mm NEG Tuberculosis reaction wheal[80528-2]?Tuberculosis reaction wheal [27050-8]01/16/2025 05:00 PMSee noteTB testTuberculosis reaction wheal[88313-5]?Tuberculosis reaction wheal [00191-3]01/04/2025 10:46 AM 0 mmNEG Allergies, adverse reactions, alerts Substance Reaction Date Status Type No allergies have been recorded Non RmdkYkzphx99/31/2025Non PevhJvikqda55/31/2025Non DrugPenicillins (PCN) 01/04/2025Non Dhmhsedwlzuv97/31/2025Non Drug Immunizations Vaccine Route Date Status COVID-19 [...] PRN, pain oral 1.0 6.0 h 01/04/2025 01/28/2025 Activeallopurinol 300 mg tablet (allopurinol)1 tablet, oral, Once A Dayoral1.0 1.0 Gout, unspecifiedActiveatorvastatin 40 mg tablet (atorvastatin)1 tablet, oral, At Bedtimeoral1.010Pure hypercholesterolemia, unspecifiedActivediltiazem HCl 120 mg tablet (diltiazem HCl)1 tab, oral, Once A Dayoral1.01.0 Peripheral vascular disease, unspecifiedActiveZosyn in dextrose (iso-osm) (hyjjejvfiwtc-jjfvbrhfug-uzdnmp) 3.375 gram/50 mL piggyback (Zosyn in dextrose (iso-osm) (cutbmbjvtujb-lrhcjxmjbk-eqvowr))3.375 gram, intravenous, Three Times A Dayintravenous1.08.0 h1Urinary tract infection, site not specifiedActivebudesonide 0.5 mg/2 mL suspension for nebulization (budesonide)2 ml, inhalation, Twice A Dayinhalation1.012.0 h1Shortness of breathActivefluconazole 200 mg tablet (fluconazole)1 tab, oral, Once A Dayoral 1.01.0 d1/5Candidiasis of skin and nailActiveheparin (porcine) 5,000 unit/mL solution (heparin (porcine))5,000 units, injection, Twice A Day1.0 12.0 h1/06/2024Longstanding persistent atrial fibrillationActive ipratropium-albuterol 0.5 mg-3 mg(2.5 mg base)/3 mL solution for nebulization (ipratropium-albuterol)3 ml, inhalation, Every 8 Hours - PRN, wheezinginhalation 1.08.0 h1Shortness of breathActivelevothyroxine 150 mcg tablet (levothyroxine)1 tablet, oral, Once A Dayoral1.01.0 d1 Hypothyroidism, unspecifiedActiveMagOx (magnesium oxide) 400 mg (241.3 mg magnesium) tablet (MagOx (magnesium oxide))1 tablet, oral, Once A Dayoral1.01.0 d1Gout, unspecifiedActiveMiralax (polyethylene glycol 3350) 17 gram/dose powder (Miralax (polyethylene glycol 3350))17gm, oral, Once A Day - PRN, constipationoral1.01.0 d15Activenystatin 100,000 unit/gram powder (nystatin)1 application, topical, Twice A Day, apply to affected areas twice dailytopical1.012.0 h15Activepantoprazole 40 mg tablet,delayed release (DR/EC) (pantoprazole)1 tab, oral, Once A Dayoral 1.01.0 d15Chronic peptic ulcer, site unspecified, without hemorrhage or perforationActivepotassium chloride 10 mEq tablet,ER particles/crystals (potassium chloride)1 tablet, oral, Once A Dayoral1.01.0 d /HypokalemiaActivepramipexole 0.25 mg tablet (pramipexole)1 tablet, oral, Once A Day - PRN, give once daily for tremors prnoral1.01.0 d /5Activesennosides-docusate sodium 8.6-50 mg tablet (sennosides-docusate sodium)2 tab, oral, Once A Day, constipationoral1.01.0 d /5ActiveZosyn in dextrose (iso-osm) (czwsdmtezevk-vhodvcxhnu-dofyqh) 3.375 gram/50 mL piggyback (Zosyn in dextrose (iso-osm) (quqldralttye-lznevyyllt-rtcltm))3.375 gram, intravenous, Three Times A Dayintravenous1.08.0 h15Cellulitis of right lower limbActive Normal Saline Flush (sodium chloride 0.9 % (flush)) - syringe (Normal Saline Flush (sodium chloride0.9 % (flush)))10mL, injection, Flush before and after IV medication, flush with 10 mL NS prior to medication administration and 10mL NS after medication is complete1.08.0 h15ActiveZosyn in dextrose (iso-osm) (jsgdgctqkdoc-jbkdiinmwk-djiqno) 3.375 gram/50 mL piggyback (Zosyn in dextrose (iso-osm) (eoayyywukjgv-xloapkurht-dzitxk))3.375 gram, intravenous, Three Times A Dayintravenous1.08.0 h15Cellulitis of right lower limbActiveZosyn in dextrose (iso-osm) (gpxrlwuhthen-buddbwldmj-rnthao) 3.375 gram/50 mL piggyback (Zosyn in dextrose (iso-osm) (rfluwgrseiyn-fbcjdrdhvn-nlqkks))3.375 gram, intravenous, Three Times A Day intravenous1.08.0 h15Cellulitis of right lower limbActiveZosyn in dextrose (iso-osm) (mjcuypbssrtx-mezailnsfd-kxmwgs) 3.375 gram/50 mL piggyback (Zosyn in dextrose (iso-osm) (bvfgngfjyjsk-hugzvptdnl-ecbvuy))3.375 gram, intravenous, Three Times A Dayintravenous1.08.0 h15103/12/2024 Cellulitis of right lower limbActivefluconazole 200 mg tablet (fluconazole)1 tab, oral, Once A Dayoral1.01.0 d15Candidiasis of skin and nailActiveZyvox (linezolid) 600 mg tablet (Zyvox (linezolid))1 tab, oral, Twice A Day, MRSA rt. heeloral1.012.0 h15Activediltiazem HCl 120 mg capsule,extended release 12 hr (diltiazem HCl)120mg, oral, Once A Dayoral1.01.0 d1511/Longstanding persistent atrial fibrillationActiveheparin (porcine) 5,000 unit/mL solution (heparin (porcine))5,000 units, injection, Twice A Day1.012.0 h1/Longstanding persistent atrial fibrillationActiveEnemeez (docusate sodium) 283 mg/5 mL enema (Enemeez [...] in the morning. Indication for use: Constipationoral1.01.0 d 515ActiveSantyl (collagenase clostridium histo.) 250 unit/gram ointment (Santyl (collagenase clostridium histo.))nickel thick, topical, Once A Day, Apply to right heel and cover with foam dressing dailytopical1.01.0 d /5Activesodium chloride 1,000 mg tablet,soluble (sodium chloride)2 tablets, miscellaneous, Once A Day1.01.0 d1Hypo- osmolality and hyponatremiaActivebumetanide 1 mg tablet (bumetanide)1 tablet, oral, Once A Dayoral1.01.0 d1Pleural effusion, 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ActiveEnemeez (docusate sodium) 283 [...] in the morning. Indication for use: Constipationoral1.01.0 d 5ActiveSantyl (collagenase clostridium histo.) 250 unit/gram ointment (Santyl (collagenase clostridium histo.))nickel thick, topical, Once A Day, Apply to right heel and cover with foam dressing dailyWound measurement : 2.9 cm X 0.9 cmtopical1.01.0 d103/21/5Activebaclofen 10 mg tablet (baclofen)1 tablet, oral, Three Times A Day - PRNoral1.08.0 h103/24/2024 01/28/2025Other intervertebral disc degeneration, lumbar region with discogenic back pain and lower extremitypainActiveFluzone High-Dose (PF) (flu vacc gp4154-58(65yr up)-pf) 180 mcg/0.5 mL syringe (Fluzone High-Dose (PF) (flu vacc cg8624-61(65yr up)-pf))0.5ml, intramuscular, Once - One Time intramuscular1.5ActiveMacrobid (nitrofurantoin monohyd/m- cryst) 100 mg capsule (Macrobid (nitrofurantoin monohyd/m-cryst))100 mg, oral, Twice A Dayoral1.012.0 h1Urinary tract infection, site not specifiedActiveheparin (porcine) 5,000 unit/mL solution (heparin (porcine))5,000 units, injection, Twice A Day1.012.0 h1Longstanding persistent atrial fibrillationActiveMacrobid (nitrofurantoin monohyd/m-cryst) 100 mg capsule (Macrobid (nitrofurantoin monohyd/m-cryst))100 mg, oral, Twice A Dayoral1.012.0 h1Urinary tract infection, site not specified Activenystatin 100,000 unit/gram powder (nystatin)1 application, topical, Twice A Day, apply to abdominal folds and groin twice dailytopical1.012.0 h15ActiveEnemeez (docusate sodium) 283 mg/5 mL enema (Enemeez (docusate sodium))1 enema, rectal, Once A Day - PRN, Step 3: If no BM by morning of day 4, administer 1 Enemeez MicroEnema in the morning. Indication for use: ConstipationStep 4: If no BM within 1 hour of administering Enemeez, contact provider.rectal1.01.0 d15Activefluconazole 200 mg tablet (fluconazole)1 tab, oral, Once A Dayoral1.01.0 d103/09/5Candidiasis of skin and nailActiveFluzone High-Dose (PF) (flu vacc ur3938-15(65yr up)-pf) 180 mcg/0.5 mL syringe (Fluzone High-Dose (PF) (flu vacc nd2073(65yr up)-pf))0.5ml, intramuscular, Once - One Timeintramuscular1.011/5ActiveMiralax (polyethylene glycol 3350) 17 gram/dose powder (Miralax (polyethylene glycol 3350))17gm (1 capful), oral, Once A Day - PRN, Step 1: If no BM by Day 2, Mix 17gm (1 capful) in 4-8oz beverage of choice in the morning. Indication for use: Constipationoral1.01.0 d15ActiveZosyn in dextrose (iso-osm) (nmpfhzypxygx-dslcwlrukf-ttvczi) 3.375 gram/50 mL piggyback (Zosyn in dextrose (iso-osm) (cdrjibdumqba-almovtnyse-ipqckd))3.375 gram, intravenous, Three Times A Dayintravenous1.08.0 h15Cellulitis of right lower limbActiveZyvox (linezolid) 600 mg tablet (Zyvox (linezolid))1 tab, oral, Twice A Day, MRSA rt. heeloral1.012.0 h15Active Vital Signs Date Vital Result Comment 01/04/2025 03:43 PM Temperature (8310-5) 97.9 [degF] Oxygen Saturation (84818-1)98 %Respiratory Rate (9279-1)16 /minHeart Rate (8867-4)78 /minBlood Pressure Systolic (8480-6)110 mm[Hg]Blood Pressure Diastolic (8462-4)54 mm[Hg]Body Height (8302-2)67 [in_us]01/04/2025 04:37 PM Temperature (8310-5)98.3 [degF]Oxygen Saturation (84529-2)96 %Respiratory Rate (9279-1)18 /minHeart Rate (8867-4)64 /minBlood Pressure Systolic (8480-6)128 mm[Hg]Blood Pressure Diastolic (8462-4)72 mm[Hg]01/05/2025 08:57 AMTemperature (8310-5)98.1 [degF]Oxygen Saturation (08401-1)98 %Respiratory Rate (9279-1)16 /minHeart Rate (8867-4)89 /minBlood Pressure Systolic (8480-6)133 mm[Hg]Blood Pressure Diastolic (8462-4)69 mm[Hg]01/05/2025 10:27 AMTemperature (8310-5)98.9 [degF]Oxygen Saturation (46480-9)97 %Respiratory Rate (9279-1)18 /minHeart Rate (8867-4)78 /minBlood Pressure Systolic (8480-6)126 mm[Hg]Blood Pressure Diastolic (8462-4)76 mm[Hg]01/05/2025 10:05 PMTemperature (8310-5)97.9 [degF] Oxygen Saturation (82587-4)97 %Respiratory Rate (9279-1)18 /minHeart Rate (8867-4)74 /minBlood Pressure Systolic (8480-6)138 mm[Hg]Blood Pressure Diastolic (8462-4)78 mm[Hg]01/06/2025 01:05 PMTemperature (8310-5)98.6 [degF] Oxygen Saturation (97684-4)95 %Respiratory Rate (9279-1)18 /minHeart Rate (8867-4)68 /minBlood Pressure Systolic (8480-6)132 mm[Hg]Blood Pressure Diastolic (8462-4)78 mm[Hg]01/06/2025 11:20 PMTemperature (8310-5)98.1 [degF] Oxygen Saturation (51295-9)95 %Respiratory Rate (9279-1)18 /minHeart Rate (8867-4)70 /minBlood Pressure Systolic (8480-6)140 mm[Hg]Blood Pressure Diastolic (8462-4)79 mm[Hg]01/07/2025 11:30 AMTemperature (8310-5)98 [degF] Oxygen Saturation (69437-6)95 %Respiratory Rate (9279-1)18 /minHeart Rate (8867-4)82 /minBlood Pressure Systolic (8480-6)115 mm[Hg]Blood Pressure Diastolic (8462-4)61 mm[Hg]01/07/2025 11:09 AMBody Weight (61220-9)186.2 [lb_av] Body Mass Index (56908-1)29.16 kg/m201/08/2025 01:29 AMTemperature (8310-5)98 [degF]Oxygen Saturation (80361-7)95 %Respiratory Rate (9279-1)18 /minHeart Rate (8867-4)75 /minBlood Pressure Systolic (8480-6)123 mm[Hg]Blood Pressure Diastolic (8462-4)62 mm[Hg]01/08/2025 05:35 AMTemperature (8310-5)98 [degF] Respiratory Rate (9279-1)18 /minHeart Rate (8867-4)74 /minBlood Pressure Systolic (8480-6)155 mm[Hg]Blood Pressure Diastolic (8462-4)80 mm[Hg]01/08/2025 09:27 AMTemperature (8310-5)98.5 [degF]Oxygen Saturation (26480-8)94 % Respiratory Rate (9279-1)18 /minHeart Rate (8867-4)84 /min01/08/2025 09:32 AM Blood Pressure Systolic (8480-6)136 mm[Hg]Blood Pressure Diastolic (8462-4)83 mm[Hg]01/08/2025 12:09 PMTemperature (8310-5)98.5 [degF]Oxygen Saturation (43620-0)94 %Respiratory Rate (9279-1)18 /minHeart Rate (8867-4)84 /minBlood Pressure Systolic (8480-6)136 mm[Hg]Blood Pressure Diastolic (8462-4)83 mm[Hg] 01/09/2025 10:30 AMTemperature (8310-5)98 [degF]Oxygen Saturation (99189-9)96 % Respiratory Rate (9279-1)18 /minHeart Rate (8867-4)66 /minBlood Pressure Systolic (8480-6)116 mm[Hg]Blood Pressure Diastolic (8462-4)53 mm[Hg]01/10/2025 10:35 AMTemperature (8310-5)98.2 [degF]Oxygen Saturation (84782-1)95 % Respiratory Rate (9279-1)18 /minHeart Rate (8867-4)63 /minBlood Pressure Systolic (8480-6)104 mm[Hg]Blood Pressure Diastolic (8462-4)53 mm[Hg]01/11/2025 09:41 AMTemperature (8310-5)98.3 [degF]Oxygen Saturation (54698-5)97 % Respiratory Rate (9279-1)18 /minHeart Rate (8867-4)75 /minBlood Pressure Systolic (8480-6)144 mm[Hg]Blood Pressure Diastolic (8462-4)76 mm[Hg]01/12/2025 10:19 AMTemperature (8310-5)98.2 [degF]Oxygen Saturation (23039-3)96 % Respiratory Rate (9279-1)16 /minHeart Rate (8867-4)68 /minBlood Pressure Systolic (8480-6)128 mm[Hg]Blood Pressure Diastolic (8462-4)62 mm[Hg]01/12/2025 12:08 PMTemperature (8310-5)98.2 [degF]Oxygen Saturation (39594-8)96 % Respiratory Rate (9279-1)16 /minHeart Rate (8867-4)68 /minBlood Pressure Systolic (8480-6)128 mm[Hg]Blood Pressure Diastolic (8462-4)62 mm[Hg]01/13/2025 09:41 AMTemperature (8310-5)98 [degF]Oxygen Saturation (27911-6)95 %Respiratory Rate (9279-1)18 /minHeart Rate (8867-4)76 /minBlood Pressure Systolic (8480-6) 110 mm[Hg]Blood Pressure Diastolic (8462-4)71 mm[Hg]01/13/2025 12:06 PM Temperature (8310-5)98 [degF]Oxygen Saturation (96204-4)95 %Respiratory Rate (9279-1)18 /minHeart Rate (8867-4)76 /minBlood Pressure Systolic (8480-6)110 mm[Hg]Blood Pressure Diastolic (8462-4)71 mm[Hg]01/14/2025 09:35 AMTemperature (8310-5)98.2 [degF]Oxygen Saturation (70550-3)93 %Respiratory Rate (9279-1)18 /minHeart Rate (8867-4)74 /minBlood Pressure Systolic (8480-6)137 mm[Hg]Blood Pressure Diastolic (8462-4)63 mm[Hg]01/15/2025 09:35 AMTemperature (8310-5)98.4 [degF]Oxygen Saturation (39992-2)96 %Respiratory Rate (79-1)18 /minHeart Rate (8867-4)77 /minBlood Pressure Systolic (8480-6)142 mm[Hg]Blood Pressure Diastolic (8462-4)80 mm[Hg]01/15/2025 09:09 PMBody Weight (30359-3)169.8 [lb_av] Body Mass Index (35185-2)26.59 kg/m201/16/2025 11:13 AMTemperature (8310-5)98.1 [degF]Oxygen Saturation (00084-3)96 %Respiratory Rate (79-1)18 /minHeart Rate (8866-4)77 /minBlood Pressure Systolic (8480-6)138 mm[Hg]Blood Pressure Diastolic (8462-4)75 mm[Hg]01/17/2025 10:42 AMTemperature (8310-5)98.5 [degF] Oxygen Saturation (24310-2)95 %Respiratory Rate (9279-1)16 /minHeart Rate (8867-4)73 /minBlood Pressure Systolic (8480-6)140 mm[Hg]Blood Pressure Diastolic (8462-4)64 mm[Hg]01/17/2025 12:01 PMTemperature (8310-5)98.5 [degF] Oxygen Saturation (41879-6)95 %Respiratory Rate (9279-1)16 /minHeart Rate (8867-4)73 /minBlood Pressure Systolic (8480-6)140 mm[Hg]Blood Pressure Diastolic (8462-4)64 mm[Hg]01/18/2025 10:59 AMTemperature (8310-5)97.7 [degF] Oxygen Saturation (33675-4)96 %Respiratory Rate (9279-1)18 /minHeart Rate (8867-4)70 /minBlood Pressure Systolic (8480-6)107 mm[Hg]Blood Pressure Diastolic (8462-4)59 mm[Hg]01/19/2025 09:21 AMTemperature (8310-5)98 [degF] Oxygen Saturation (66700-2)97 %Respiratory Rate (9279-1)18 /minHeart Rate (8867-4)82 /minBlood Pressure Systolic (8480-6)91 mm[Hg]Blood Pressure Diastolic (8462-4)61 mm[Hg]01/20/2025 10:44 AMTemperature (8310-5)98.2 [degF]Oxygen Saturation (74952-7)97 %Respiratory Rate (9279-1)18 /minHeart Rate (8867-4)73 /minBlood Pressure Systolic (8480-6)97 mm[Hg]Blood Pressure Diastolic (8462-4)57 mm[Hg]01/21/2025 10:27 AMTemperature (8310-5)97.8 [degF]Oxygen Saturation (02200-6)96 %Respiratory Rate (9279-1)16 /minHeart Rate (8867-4)83 /minBlood Pressure Systolic (8480-6)126 mm[Hg]Blood Pressure Diastolic (8462-4)67 mm[Hg] 01/22/2025 09:15 AMTemperature (8310-5)98.2 [degF]Oxygen Saturation (50455-8)96 %Respiratory Rate (9279-1)16 /minHeart Rate (8867-4)80 /minBlood Pressure Systolic (8480-6)132 mm[Hg]Blood Pressure Diastolic (8462-4)79 mm[Hg]01/22/2025 08:40 PMBody Weight (91901-0)169.5 [lb_av]Body Mass Index (33368-1)26.54 kg/m2 01/23/2025 09:33 AMTemperature (8310-5)98.2 [degF]Oxygen Saturation (46300-0)96 %Respiratory Rate (9279-1)16 /minHeart Rate (8867-4)71 /minBlood Pressure Systolic (8480-6)128 mm[Hg]Blood Pressure Diastolic (8462-4)72 mm[Hg]01/24/2025 10:17 AMTemperature (8310-5)98.1 [degF]Oxygen Saturation (72742-0)97 % Respiratory Rate (9279-1)16 /minHeart Rate (8867-4)65 /minBlood Pressure Systolic (8480-6)106 mm[Hg]Blood Pressure Diastolic (8462-4)56 mm[Hg]01/25/2025 09:12 AMTemperature (8310-5)98 [degF]01/25/2025 09:13 AMTemperature (8310-5)98.3 [degF]Oxygen Saturation (80455-6)95 %Respiratory Rate (9279-1)16 /minHeart Rate (8867-4)75 /minBlood Pressure Systolic (8480-6)110 mm[Hg]Blood Pressure Diastolic (8462-4)80 mm[Hg]01/26/2025 01:40 AMTemperature (8310-5)97.2 [degF] 01/26/2025 10:58 AMTemperature (8310-5)98.1 [degF]Oxygen Saturation (65630-1)94 %Respiratory Rate (9279-1)18 /minHeart Rate (8867-4)65 /minBlood Pressure Systolic (8480-6)140 mm[Hg]Blood Pressure Diastolic (8462-4)76 mm[Hg]01/26/2025 11:28 AMTemperature (8310-5)98.1 [degF] Social History No smoking Hx information available Encounters Type CPT Code Date Location Provider Indication s encounter report 01/04/2025 11:06 Kirit RODRIGUEZencounter oxfpnw0201/04/2025 01:20 Poly RODRIGUEZ Advance Directives Directive Description Verification Date Supporting Document(s) Resuscitation
--- OUTSIDE RECORDS SUMMARY | 2025-01-28 10:09 | XMS_ITS | Clinical Summary ---
Author Organization [facility] Address [id number] [address] [place] [address] Care Team Providers Care Ceramic Sprayer Name Role Phone TjcatieEdmondan Louis HARGROVE Primary Care Provider [phone] Allergies Active AllergyReactionsCriticalityNoted SfauIjqynrhfQrnkobma76/20/2021Fentanyl 09/02/20179424Qwpfaobhyurb22/29/8577Ygivyxkqeuz70/01/2005 Other reaction(s): Mental Status Change Medications MedicationSigDispense [...] MOUTH ONCE EVERY MORNING ON AN EMPTY [id number] magnesium oxide (MAG-OX) 400 mg tablet Take [...] DateBenign prostatic hyperplasia (BPH) with urinary urge jdtekurulolv76/07/2019 Overview (05/18/2022): urolift 12/21 (Ameena) Was using [...] standard drink = 0.6 oz pure alcohol)ChildcareAnswerDate OytvokeiTtglocvaxGxayxtc40/04/2019EmploymentAnswer Date NyniirntHmubpvldlrOcnflkg65/04/2019Hunger ScreeningAnswerDate Recorded Within the past 12 months we worried whether our food would run out before we got money to buy more.Never True05/18/2022Within the past 12 months the food we bought just didn't last and we didn't have money to get more.Never True 05/18/2022urpose - LifeAnswerDate RecordedPurpose and direction in lifeUnknown 03/31/2020ex and Gender InformationValueDate RecordedSex Assigned at BirthNot on fileLegal YsuOuuh4710/08/2014 8:36 PM EDTGender IdentityNot on fileSexual OrientationNot on file Last Filed Vital Signs Vital SignReadingTime TakenCommentsBlood Litddndk896/7905/18/2022 11:26 AM EDT Yxgxz114705/18/2022 11:26 AM EDTTemperature--Respiratory Atft899505/18/2022 11:26 AM EDTOxygen Saturation--Inhaled Oxygen Concentration--Anjdpz68.6 kg (180 lb) 05/18/2022 11:26 AM OSSEzjrap159.6 cm (5' 6 )05/18/2022 11:26 AM EDTBody Mass Index29.05005/18/2022 11:26 AM EDT Plan of Treatment Health MaintenanceDue DateLast DoneCommentsDepression Sksaszmnx01/11/1954Tobacco Mritkogsv48/11/1954DTaP,Tdap and Td Vaccines (1 - Tdap)1960Zoster (Shingles) Vaccine (1 of 2)07/16/1991Fall Risk Akrquyhqd93/11/2007RSV ( or age 60+ yrs) (1 - 1-dose 75+ series)2016COVID-19 Vaccine (2024- season)/, 02/18/2021, 05/28/2020, Additional history exists Influenza Nchoglg85/, 12/22/2019, 12/06/2019, Additional history exists Medical Devices Not on file Insurance Care Teams Team MemberRelationshipSpecialtyStart DateEnd Date eFliciano Ambrosio DO PCP - GeneralFamily Medicine06/05/18
--- OUTSIDE RECORDS SUMMARY | 2025-01-28 10:09 | XMS_ITS | Clinical Summary ---
Author Organization [facility] Address [address], [address] [place] [address] Care Team Providers Care Online Merchant Name Role Phone Feliciano Ambrosio DO Primary Care Provider [phone] Allergies Active AllergyReactionsCriticalityNoted JaiaZijxcstjWwslqycqNjr86/29/2018 Can't remember goofy AbvfzlxyaewuSun60/29/2018 Can't remember goofy and agitated QhodyxdkbbiUrp56/29/2018 As child ZolpidemOther (See Comments)Low09/23/2020 Can't remember [...] Safety Domain Source: IP Abuse ScreeningAnswerDate RecordedPhysical ngnxjUuycng22/17/2024Verbal abuseDenies 02/21/2024Emotional anyjpBikenq22/17/2024Financial pkdfjOdhxkc10/17/2024Sexual lqgrbLyvrcg50/17/2024Sex and Gender InformationValueDate RecordedSex Assigned at BirthNot on fileLegal BxqMuia2704/16/2012 8:10 PM ESTGender IdentityNot on file Sexual OrientationNot on file Last Filed Vital Signs Vital SignReadingTime TakenCommentsBlood Bemnulvs938/7302/27/2024 10:46 AM EST Ombka820602/27/2024 10:46 AM XLYQsqlwdqctbn42.7 ??C (98 ??F)02/27/2024 10:46 AM ESTRespiratory Dqmo457804/29/2023 10:46 AM ESTOxygen Zijtvfamjz61%02/27/2024 10:46 AM ESTInhaled Oxygen Concentration--Tatmjh01.3 kg (190 lb 3.2 oz)02/21/2024 7:45 AM WYNQnzvth892.6 cm (5' 6 )02/21/2024 7:45 AM ESTBody Mass Index30.7104/23/2023 7:45 AM EST Plan of Treatment Health MaintenanceDue DateLast HqcmBagwfmgzXznzlv61/11/1952Depression Screen 4DTaP/Tdap/Td vaccine (1 - Tdap)1Shingles vaccine [...] Mendes TypeRelation to PatientDate of BirthPhone Billing AddressPersonal/QegsmjHtms56/11/1941 [address] [place] [address] * Guarantor: Krista Mendes TypeRelation to PatientDate of BirthPhone Billing AddressPersonal/FzseeoQklu38/11/1941 [address] [place] [address] Advance Directives * Full Code (Latest Code Status on File) Date ActivatedDate ZgpbymrvwpmBpyuwlre56/17/2024 7:35 AM02/27/2024 3:35 PM Care Teams Team MemberRelationshipSpecialtyStart DateEnd Date Feliciano Ambrosio DO PCP - [facility]07/22/17
--- OUTSIDE RECORDS SUMMARY | 2025-01-28 10:09 | XMS_ITS | Clinical Summary ---
Author Organization [facility] Address [address] [place] [address] Phone Care Team Providers Care Business Continuity Specialist Name Role Phone Feliciano Ambrosio Louis HARGROVE Primary Care Provider [phone] Allergies Active AllergyReactionsCriticalityNoted DateCommentsFentanylDizziness,Nausea Only02/16/20234739IftlndjrfpoaYeltd39/13/2950AgjfquackkwEbmgn45/13/2023Zolpidem Fgdwppo4202/16/2023 Medications MedicationSigDispense QuantityRefillsLast FilledStart DateEnd DateStatus acetaminophen [...] current use of anticoagulant therapy 02/16/2024MI 30.0-30.9,adult02/16/2024Former ijuubu5702/16/2024hronic atrial fjposwhvarhj84/13/2023Echocardiogram cohffeao50/13/7382Bunqn59/13/2023rimary mglhwehjejvo21/13/2023Heart failure, NYHA class 212/Hyperlipemia 02/16/2023Mild CAD02/16/2023 Resolved Problems ProblemNoted DateDiagnosed DateResolved DateNon-ischemic cardiomyopathy Encounters DateTypeDepartmentCare RrjyFnhnxtlnxqu24/09/2025Scanned Document [facility] [address] [place] [place] [address] Scanning, Generic Provider 11/23/2024Refill [facility] [address] [address] Irineo Mcintyre, Chronic atrial fibrillation (Multi); Essential hypertension, benign; Non-ischemic cardiomyopathy (Multi)from Last 3 Months Immunizations ImmunizationAdministration DatesNext DueInfluenza, Ativsrmpbhp90/01/2019, 11/05/2017,04/07/2016Pneumococcal conjugate vaccine, 13-valent (PREVNAR 13) 04/07/2016 Family History Medical HistoryRelationNameCommentsNo Known ProblemsMotherRelationNameStatus CommentsMother Social History Tobacco UseTypesPacks/DayYears UsedDateSmoking Tobacco: FormerCigarettesQuit: 1980Smokeless Tobacco: Never Tobacco Cessation:Counseling Given: Yes Alcohol UseStandard Drinks/WeekCommentsYes3 (1 standard drink = 0.6 oz pure alcohol)Sex and Gender InformationValueDate RecordedSex Assigned at BirthNot on fileLegal OyfTlwp57/26/2022 2:53 PM ESTGender IdentityNot on fileSexual OrientationNot on file Last Filed Vital Signs Vital SignReadingTime TakenCommentsBlood Lyxawcfy439/8602/16/2024 3:20 PM EST Jzfsx37497/12/2024 3:20 PM ESTTemperature--Respiratory Rate--Oxygen Saturation-- Inhaled Oxygen Concentration--Yucsfe28.6 kg (191 lb)02/16/2024 3:20 PM ESTHeight 167.6 cm (5' 6 )02/16/2024 3:20 PM ESTBody Mass Index30.8302/16/2024 3:20 PM EST Plan of Treatment DateTypeDepartmentCare Team (Latest Contact Info)Ilvbllkdcvt20/09/2025 10:00 AM ESTOffice Visit [facility] [address] [address] Enedelia Gomez, ENROLLMENT MANAGEMENT DIRECTOR-[facility] [address] [facility] [address] [place] [address] Health MaintenanceDue DateLast DoneCommentsCreatinine Level1941Lipid Panel 1941Medicare Annual Wellness Visit (AWV)2Potassium Level 1941TSH Level2Diabetes Bcygjzpnx39/11/1960DTaP/Tdap/Td Vaccines (1 - Tdap)07/16/1963Zoster Vaccines (1 of 2)07/16/1991Pneumococcal Vaccine (2 of 2 - PPSV23, PCV20, or PCV21)RSV High Risk: (Elderly (60+) or Population) (1 - 1-dose 75+ series)2016Influenza Vaccine (#1) 510/, 12/24/2021, 12/22/2019, Additional history existsCOVID-19 Vaccine ( season)510/, 02/18/2021, 05/28/2020, Additional history qknxnkMourcrcsroebwr30/09/202610/11/2024, 02/23/2024, 01/10/2022, Additional history existsHIB VaccinesAged OutNo [...] DateEnd Date Feliciano Ambrosio DO PCP - Vnwmced91/1/21
--- OUTSIDE RECORDS SUMMARY | 2025-01-28 10:09 | XMS_ITS | Clinical Summary ---
Author Organization [facility] Address [address] [place] [address] Care Team Providers Care Tool Supervisor Name Role Phone Unavailable Primary Care Provider Unavailabl e Encounters DateTypeDepartmentCare BbtjHpruhxtvrqg54/21/2025External Result Encounter [facility] External Department Unsolicited Mendy Bull MD 01/25/2025linisync Result Encounter [facility] External Department Unsolicited Mendy Bull MD 01/24/2025bstract [facility] [address] [facility] [address] [place] [address] Unallocated, [facility] ProviderMD from Last 3 Months Social History Tobacco UseTypesPacks/DayYears UsedDateSmoking Tobacco: Never AssessedSex and Gender InformationValueDate RecordedSex Assigned at BirthNot on fileLegal Sex Male05/19/2022 6:54 PM EDTGender IdentityNot on fileSexual OrientationNot on file Plan of Treatment Not on file Procedures Procedure NamePriorityDate/TimeAssociated DiagnosisCommentsAEROBIC BELLA CHARGE (NMIC56)STAT103/27/2024 9:00 AM EST URINE CULTURE - VNQUIbdqzne52/21/2025 9:00 AM EST [facility] UA (CLEAN/CATCH) [employer] GLAZER/MICRO IF IND.Uggejfw6901/25/2025 9:00 AM EST CULTURE, URINE, VPECYDZMOGQ02/21/2025 9:00 AM EST from Last 3 Months Results * (ABNORMAL) URINE CULTURE - FR (01/25/2025 9:00 AM EST)ComponentValueRef RangeTest MethodAnalysis TimePerformed AtPathologist SignatureURINE CULTURE - [facility] ??Urine Culture - [facility] SEEFR[facility] RESULT^[facility] RESULT (A)TBHURINE CULTURE - [facility] SEE SCANNED REPORT, ABNORMAL^SEE SCANNED REPORT, ABNORMAL(A)TBHSpecimen (Source)Anatomical Location / LateralityCollection Method / VolumeCollection TimeReceived Time01/25/2025 9:00 AM EST01/25/2025 1:40 PM EST Narrative [facility] - 01/27/2025 5:39 PM EST Authorizing ProviderResult TypeResult StatusMendy SUTHERLAND BLOOD ORDERABLES Final ResultPerforming OrganizationAddressCity/State/ZIP CodePhone Number [facility] * (ABNORMAL) AEROBIC BELLA CHARGE (NMIC56) (01/25/2025 9:00 AM EST)ComponentValue Ref RangeTest MethodAnalysis TimePerformed AtPathologist SignatureAMIKACIN<16 (S)01/27/2025 9:[address] [facility] CtrAZTREONAM<4(I) 01/27/2025 9:[address] [facility] CtrCEFEPIME<2(S)01/27/2025 9:[address] [facility] CtrCEFTAZIDIME<1(I)01/27/2025 9:[address] [facility] CtrCEFTAZIDIME/AVIBACTAM<4(S)01/27/2025 9:[address] [facility] CtrCEFTOLOZANE/TAZOBACTAM<2(S)01/27/2025 9:[address] [facility] CtrCIPROFLOXACIN<0.25(S)01/27/2025 9:27 AM [facility] CtrGENTAMICIN<2(S)01/27/2025 9:[address] [facility] CtrLEVOFLOXACIN<0.5(S)01/27/2025 9:[address] [facility] CtrMEROPENEM<1(S)01/27/2025 9:[address] [facility] CtrPIPERACILLIN/TAZOBACTAM<8(I)01/27/2025 9:[address] [facility] CtrTOBRAMYCIN<2(S)01/27/2025 9:[address] [facility] CtrSpecimen (Source)Anatomical Location / LateralityCollection Method / VolumeCollection TimeReceived TimeClean-Voided Midstream (Clean Void Midstream)01/25/2025 9:00 AM EST01/25/2025 4:28 PM EST Narrative Authorizing ProviderResult TypeResult StatusMendy Bull MDFIRELANDSFinal Result Performing OrganizationAddressCity/State/[facility] CodePhone Number [facility] [address] [place] [address], [facility] [address] [place] [address] * (ABNORMAL) [facility] UA (CLEAN/CATCH) [employer] GLAZER/MICRO IF IND. (01/25/2025 9:00 AM EST) ComponentValueRef [...] Result Performing OrganizationAddressCity/State/ZIP CodePhone Number [facility] * Urine culture (01/25/2025 9:00 AM EST)ComponentValueRef RangeTest Method Analysis TimePerformed AtPathologist SignatureFRMC ORGANISMPseudomonas sodynrltze31/23/2025 9:[address] [facility] CtrCOLONY COUNT >100,1991103/29/[address] [facility] CtrSpecimen (Source) Anatomical Location / LateralityCollection Method / VolumeCollection Time Received TimeClean-Voided Midstream (Clean Void Midstream)01/25/2025 9:00 AM EST01/25/2025 4:28 PM EST Narrative [facility] - 01/27/2025 9:30 AM EST Diagnosis: ALTERED MENTAL STATUS Comment: Authorizing ProviderResult TypeResult StatusMendy SUTHERLAND MICROBIOLOGY - GENERAL ORDERABLESFinal ResultPerforming OrganizationAddressCity/State/ZIP Code Phone Number [facility] [address] [place] [address], [facility] [address] [place] [address] from Last 3 Months Insurance
--- OUTSIDE RECORDS SUMMARY | 2025-01-28 10:11 | XMS_ITS | Patient Health Record ---
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 Name Role Phone Randi Burris Unavailable [phone] SIXTO SIMMONS CNP Unavailable Unavailable Gustabo May Unavailable [phone] Maxine Torres Unavailable [phone] Allergies Allergen (clinical drug ingredient) Drug/Non Drug Allergy documented on EMR Reaction Allergy Type Onset Date Status penicillin (uncoded)UnknownAllergyActiveindomethacinindomethacinUnknownDrug AllergyActivefentanylfentaNYLUnknownDrug AllergyActivezolpidemAmbienUnknownDrug AllergyActive Results Component Value Reference Range Notes XR LUMBAR SPINE 1 VW Reviewed date:02/22/2024 03:19:14 PM Interpretation: Performing Lab: Notes/Report: MOBILE LATERAL LUMBAR SPINE: [facility] [address], [place] [address], Original Ordering Provider: Joanne CARLOS Provider Role: Ordering .eGFR Reviewed date:04/25/2024 11:56:06 AM Interpretation: Performing Lab: Notes/Report: [address] [address] Estimated GFR 55 >=60 mL/min/1.73m? ? = [...] ? = 0.7 (females) or 0.9 (males) [facility] have implemented the eGFR calculation [...] indicates the minimum of SCr/? or 1 Magnesium Reviewed date:04/25/2024 11:56:11 AM Interpretation: Performing Lab: Notes/Report: [address] [address] Magnesium Lvl 1.9 1.7-2.4 mg/dL Troponin-I Reviewed date:04/25/2024 11:56:06 AM Interpretation: Performing Lab: Notes/Report: [address] [address]Xfalwpvr-X<0.030.00-0.03 ng/mL Positive >= 0.04 Negative <= 0.03 An increased Troponin-I value, in the absence of myocardial ischemia, may indicate other etiologiesof cardiac damage. 99th Percentile Cutoff for Negative/Positive: CMP Reviewed date:04/25/2024 11:56:11 AM Interpretation: Performing Lab: Notes/Report: [address] [address]Gglgds Tmq725546-106 mmol/LPotassium Lvl3.23.4-4.8 mmol/L Ropeadsu0128-412 mmol/UQZ98782-02 mmol/LAnion Whn22-46Ibpvfnb Zlt1897-61 mg/dL JAW686-02 mg/dLCreatinine Lvl1.300.61-1.24 mg/dLBUN Crea Ratio19.210.0-20.0Bili Total0.80.3-1.2 mg/dLAlk Rjzv62252-91 IU/KAMY5162-68 IU/EYXV6756-33 IU/LTotal Protein6.66.5-8.1 g/dLAlbumin Lvl3.03.2-4.9 g/dLAG Ratio0.81.1-2.2Calcium Lvl8.5 8.5-10.3 mg/dLPhosphorus Reviewed date:04/25/2024 11:56:11 AM Interpretation: Performing Lab: Notes/Report: [address] [address]Fjcfhleoil4.12.5-4.6 mg/dLBNP Reviewed date:04/25/2024 11:56:06 AM Interpretation: Performing Lab: Notes/Report: [address] [address]DZV8643-574 pg/mL.AMI 2 Hr Reviewed date:04/25/2024 11:56:06 AM Interpretation: Performing Lab: Notes/Report: [address] [address] Hour Troponin<0.030.00-0.03 ng/mL Positive >= 0.04 An increased Troponin-I value, in the absence of myocardial ischemia, may indicate other etiologiesof cardiac damage. Negative <= 0.03 99th Percentile Cutoff for Negative/Positive: 2 Hour Ftvbtagws67.817.4-105.7 ng/mLMRSA, PCR Reviewed date:04/16/2024 01:17:51 PM Interpretation: Performing Lab: Notes/Report: [address] [address]Xurlmiixqwu Resistant Staph aurus(MRSA)Not DetectedNot Detected [facility] Xpert MRSA Assay is a qualitative in [...] persist following antimicrobial therapy. LAB ONLY Result Called?NoSurgery Scheduling (Not yet reviewed by provider) Interpretation: Performing Lab: Notes/Report: Primary Insurance Company:MEDICARESurgeon/Assist:[facility]/ AMIE OR GUSTABO Surgery [facility] Date & Time:04/13/24 @ 10:30AMHosp arrival time day of:9:30AMSurgery End Time:12:00PMProcedure:LUMBAR I &DSpecial Equipment: PRONE,ANABELLA TABLEAdmission Type:INPATIENTAnesthesia Type/CPNB:GENERALPost-op Appointment Date:05/25/24 @ 10:30AM Katelyn:Leno Physician: CLEAREDHistory & Physical Appointment Date/:04/13/24C Amauryd Reviewed date:04/20/2024 08:42:56 AM Interpretation: Performing Lab: Notes/Report: [address] [address]Fnaz : 1940 [facility] Patient Name: Tavo العلي Jesus Below For Report No growth at [address] HEAD WO CONTRAST Reviewed date:03/06/2024 07:29:49 AM Interpretation: Performing Lab: Notes/Report: CT head without contrast [place] [address], Original Ordering Provider: Joanne LAWRENCE Provider Role: CopiedXR CHEST PORTABLE Reviewed date:03/06/2024 07:29:49 AM Interpretation: Performing Lab: Notes/Report: 1 view chest x-ray [place] [address], Original Ordering Provider: Joanne LAWRENCE Provider Role: CopiedC Bld Reviewed date:04/20/2024 08:42:56 AM Interpretation: Performing Lab: Notes/Report: [address] [address]Rmnc Patient Name: Tavo Wallis [facility] : 1940 Severiano Lee Below For Report No growth at 5 days. Final CBC w/ Diff Reviewed date:04/25/2024 11:56:11 AM Interpretation: Performing Lab: Notes/Report: [address] [address]CDY4.74.5-11.0 x10*3/mcLRBC2.784.30-5.80 x10*6/mcLHgb8.913.5- 17.5 g/dLHct26.741.0-53.0 %MCV96.180.0-100.0 fLMCH32.227.0-35.0 vtGJSD01.531.0- 37.0 %Uzkemnrs090756-029 x10*3/eoNNPO64.711.6-14.8 %Mean Platelet Volume6.76.7- 10.6 fLDiff Auto Reviewed date:04/25/2024 11:56:11 AM Interpretation: Performing Lab: Notes/Report: [address] [address]Msurnn Auto63.447.2-70.8 %Lymph Auto25.527.2-40.8 %Lamb Auto6.5 4.7-13.9 %Eos Auto3.90.0-6.1 %Basophil Auto0.70.0-1.2 %Neutro Absolute5.51.8-7.7 x10*3/mcLLymph Absolute2.21.0-4.8 x10*3/mcLMono Absolute0.60.3-1.1 x10*3/mcLEos Absolute0.30.0-0.4 x10*3/mcLBaso Absolute0.10.0-0.2 x10*3/mcLDiff Auto Reviewed date:04/16/2024 01:17:51 PM Interpretation: Performing Lab: Notes/Report: [address], [place] [address]Ueelcv Auto55.647.2-70.8 %Lymph Auto33.227.2-40.8 %Lamb Auto6.6 4.7-13.9 %Eos Auto3.80.0-6.1 %Basophil Auto0.80.0-1.2 %Neutro Absolute4.11.8-7.7 x10*3/mcLLymph Absolute2.51.0-4.8 x10*3/mcLMono Absolute0.50.3-1.1 x10*3/mcLEos Absolute0.30.0-0.4 x10*3/mcLBaso Absolute0.10.0-0.2 x10*3/mcLHgb Reviewed date:04/18/2024 07:51:19 AM Interpretation: Performing Lab: Notes/Report: [address], [place] [address]Ekd0.013.5-17.5 g/dLHct26.141.0-53.0 %Magnesium Reviewed date:04/16/2024 01:17:51 PM Interpretation: Performing Lab: Notes/Report: [address] [address]Lihxotsng Lvl2.01.7-2.4 mg/dLBasic Metabolic Profile Reviewed date:04/16/2024 01:17:51 PM Interpretation: Performing Lab: Notes/Report: [address], [place] [address]Iobjap Gyc992375-608 mmol/LPotassium Lvl3.63.4-4.8 mmol/L Momyyrbe8432-596 mmol/SWY63608-58 mmol/LAnion Wkv35-74Xwabspb Yhm1813-05 mg/dL WBD050-55 mg/dLCreatinine Lvl1.510.61-1.24 mg/dLBUN Crea Ratio15.210.0-20.0 Calcium Lvl8.58.5-10.3 mg/dL.eGFR Reviewed date:04/16/2024 01:17:51 PM Interpretation: Performing Lab: Notes/Report: [address] [address]Xkignjhda GFR46>=60 mL/min/1.73m? min = indicates the minimum [...] ? = -0.241 (females) or -0.302 (males) [facility] have implemented the eGFR calculation approach that does not have a coefficient for race and that conforms to the NKF-ASN Task Force Recommendations. CBC w/ Diff Reviewed date:04/16/2024 01:17:51 PM Interpretation: Performing Lab: Notes/Report: [address] [address]HVG9.54.5-11.0 x10*3/mcLRBC2.414.30-5.80 x10*6/mcLHgb7.713.5- 17.5 g/dLHct23.341.0-53.0 %MCV96.580.0-100.0 fLMCH32.027.0-35.0 wyTTRT84.231.0- 37.0 %Ejgrdjfo758146-183 x10*3/xiVVOW35.411.6-14.8 %Mean Platelet Volume6.96.7- 10.6 fLABO/Rh Reviewed date:04/16/2024 01:17:51 PM Interpretation: Performing Lab: Notes/Report: [facility] (UNKNOWN) [address] [place] [address]DRA/RhABO/Rh: O POSRetic Count Reviewed date:04/16/2024 01:17:51 PM Interpretation: Performing Lab: Notes/Report: [address] [address]Wut64.041.0-53.0 %Reticulocyte1.60.8-2.5 %Ret Abs0.0370 Corrected Retic Count0.820.80-2.50 %ABSC Auto Reviewed date:04/16/2024 01:17:51 PM Interpretation: Performing Lab: Notes/Report: [facility] (UNKNOWN) [address] [place] [address]TAYX AutoAntibody Screen: Negative ABSCFerritin Reviewed date:04/16/2024 01:17:51 PM Interpretation: Performing Lab: Notes/Report: [address] [address]Bhrmyiio Ini838.523.9-336.2 ng/mLTIBC Reviewed date:04/16/2024 01:17:51 PM Interpretation: Performing Lab: Notes/Report: [address] [address]Cfpi Sat11.6>=16.0 %TJCX313681-413 mcg/qZDkvmpkthggk524562-428 mg/gYNxom5836-301 mcg/dLFolate Lvl Reviewed date:04/16/2024 01:17:51 PM Interpretation: Performing Lab: Notes/Report: [address] [address]Nvfhkh Lvl5.9>=5.9 ng/mLA WHO Technical Consultation has determined that deficient Folate concentrations are considered to be less than 4 ng/mL.Hgb Reviewed date:04/18/2024 07:51:19 AM Interpretation: Performing Lab: Notes/Report: [address] [address]Yta0.113.5-17.5 g/dLHct27.241.0-53.0 %B12 Reviewed date:04/16/2024 01:17:51 PM Interpretation: Performing Lab: Notes/Report: [address] [address]Popmzuo B12 Pql259844-339 pg/mLCBC w/ Diff Reviewed date:04/18/2024 07:51:19 AM Interpretation: Performing Lab: Notes/Report: [address] [address]LVQ8.64.5-11.0 x10*3/mcLRBC2.844.30-5.80 x10*6/mcLHgb9.013.5- 17.5 g/dLHct26.441.0-53.0 %MCV93.080.0-100.0 fLMCH31.827.0-35.0 yoFLIV72.231.0- 37.0 %Jhuukarc372447-364 x10*3/iaIXTJ38.711.6-14.8 %Mean Platelet Volume6.56.7- 10.6 fLSodium Reviewed date:04/18/2024 07:51:19 AM Interpretation: Performing Lab: Notes/Report: [address] [address]Udtsyz Bcx860171-038 mmol/LDiff Auto Reviewed date:04/18/2024 07:51:19 AM Interpretation: Performing Lab: Notes/Report: [address] [address]Siqpvx Auto54.947.2-70.8 %Lymph Auto28.727.2-40.8 %Lamb Auto9.7 4.7-13.9 %Eos Auto5.40.0-6.1 %Basophil Auto1.30.0-1.2 %Neutro Absolute3.11.8-7.7 x10*3/mcLLymph Absolute1.61.0-4.8 x10*3/mcLMono Absolute0.50.3-1.1 x10*3/mcLEos Absolute0.30.0-0.4 x10*3/mcLBaso Absolute0.10.0-0.2 x10*3/mcLMagnesium Reviewed date:04/18/2024 07:51:19 AM Interpretation: Performing Lab: Notes/Report: [address] [address]Ryusfauje Lvl2.01.7-2.4 mg/dLBasic Metabolic Profile Reviewed date:04/18/2024 07:51:19 AM Interpretation: Performing Lab: Notes/Report: [address] [address]Vskazf Gjt253727-708 mmol/LPotassium Lvl3.73.4-4.8 mmol/L Bajtlmkv43856-370 mmol/NOU21283-20 mmol/LAnion Tab09-21Wbbgzzb Jin3188-71 mg/dL QTB896-62 mg/dLCreatinine Lvl1.370.61-1.24 mg/dLBUN Crea Ratio14.610.0-20.0 Calcium Lvl8.48.5-10.3 mg/dL.eGFR Reviewed date:04/18/2024 07:51:19 AM Interpretation: Performing Lab: Notes/Report: [address] [address]Jiyrbgspw GFR52>=60 mL/min/1.73m? Stage 4 Severe loss of kidney function 29 to 15 max = indicates the maximum of SCr/? or 1 Stage 3b Moderate to severe loss of kidney function 44 to 33 ? = 0.7 (females) or 0.9 (males) [facility] have implemented the eGFR calculation [...] date:04/18/2024 07:51:19 AM Interpretation: Performing Lab: Notes/Report: [address] [address]Zcczu Lnnwxi58.810.0-15.0 mcg/mLC KG Reviewed date:04/25/2024 11:56:06 AM Interpretation: Performing Lab: Notes/Report: [facility] [address] [place], [place] [address]Olih Patient Name: Tavo Wallis [facility] : 1940 C Tommy Below For Report Final No anaerobic growth after 72 hrs. C Sterile BS Reviewed date:04/25/2024 11:56:06 AM Interpretation: Performing Lab: Notes/Report: [facility] ([facility]) [address] [place] [address] [address] [address] [address]Shzq : 1940 Patient Name: Tavo Wallis [facility] C Sterile BSSee Below For Report [...] PA ORGANISM ORGANISM ID: 1 SUSCEPTIBILITY SUSCEPTIBILITY CRP Reviewed date:04/18/2024 11:33:44 AM Interpretation: Performing Lab: Notes/Report: [address] [address]VKD36.600.00-0.75 mg/dL CARDIAC patients with elevated CRP are POTENTIALLY at a CRP measurement is useful for assessment of non-specific sensitive MARKER of ACUTE INFLAMMATION including CARDIAC RISK ASSESSMENT. HIGHER RISK OF FUTURE CARDIAC EVENTS. INFLAMMATORY RESPONSE to infection or injury AND is a ESR Reviewed date:04/18/2024 11:33:44 AM Interpretation: Performing Lab: Notes/Report: [address] [address]Yns Cegm421-34 mm/hrRespiratory Pathogens Panel Reviewed date:04/20/2024 08:42:56 AM Interpretation: Performing Lab: Notes/Report: [address] [address]Upczyeipj ANot DetectedNot DetectedInfluenza A/H1Not Detected Not DetectedInfluenza [...] DetectedBordatella holmesiiNot DetectedNot Detected Results from the [facility] Respiratory Pathogens Panel should be interpreted with [...] bronchiseptica, Bordatella holmesii, Bordatella pertussis. Magnesium Reviewed date:04/18/2024 11:33:44 AM Interpretation: Performing Lab: Notes/Report: [address] [address]Otalvdsnk Lvl1.81.7-2.4 mg/dLBasic Metabolic Profile Reviewed date:04/18/2024 11:33:44 AM Interpretation: Performing Lab: Notes/Report: [address] [address]Ngundq Vwg506870-026 mmol/LPotassium Lvl3.93.4-4.8 mmol/L Zemhfepr6689-490 mmol/KOC42052-24 mmol/LAnion Suo71-59Bxpoply Sux4409-73 mg/dL ZIG040-34 mg/dLCreatinine Lvl1.450.61-1.24 mg/dLBUN Crea Ratio13.110.0-20.0 Calcium Lvl8.38.5-10.3 mg/dLDiff Auto Reviewed date:04/18/2024 11:33:44 AM Interpretation: Performing Lab: Notes/Report: [address] [address]Qrgksa Auto53.747.2-70.8 %Lymph Auto32.027.2-40.8 %Lamb Auto9.7 4.7-13.9 %Eos Auto4.00.0-6.1 %Basophil Auto0.60.0-1.2 %Neutro Absolute4.51.8-7.7 x10*3/mcLLymph Absolute2.71.0-4.8 x10*3/mcLMono Absolute0.80.3-1.1 x10*3/mcLEos Absolute0.30.0-0.4 x10*3/mcLBaso Absolute0.10.0-0.2 x10*3/mcL.eGFR Reviewed date:04/18/2024 11:33:44 AM Interpretation: Performing Lab: Notes/Report: [address] [address]Kzyihjvgh GFR48>=60 mL/min/1.73m? Age = years [facility] have implemented the eGFR calculation [...] Stage 5 Kidney failure Less than 15 CBC w/ Diff Reviewed date:04/18/2024 11:33:44 AM Interpretation: Performing Lab: Notes/Report: [address] [address]JGP2.54.5-11.0 x10*3/mcLRBC2.904.30-5.80 x10*6/mcLHgb8.913.5- 17.5 g/dLHct26.841.0-53.0 %MCV92.680.0-100.0 fLMCH30.627.0-35.0 rhWQTF80.131.0- 37.0 %Nxjqwznw500877-069 x10*3/kzADRG93.111.6-14.8 %Mean Platelet Volume6.96.7- 10.6 fLBasic Metabolic Profile Reviewed date:04/20/2024 08:42:56 AM Interpretation: Performing Lab: Notes/Report: [address] [address]Kwpjis Mnr292433-454 mmol/LPotassium Lvl3.83.4-4.8 mmol/L Quymvfeo3702-426 mmol/GXF84403-63 mmol/LAnion Upo33-20Bfwiaim Ryo7246-91 mg/dL QHI137-14 mg/dLCreatinine Lvl1.370.61-1.24 mg/dLBUN Crea Ratio14.610.0-20.0 Calcium Lvl8.58.5-10.3 mg/dLXR Chest 1 View Reviewed date:04/18/2024 11:33:44 AM Interpretation: Performing Lab: Notes/Report: Patient Name: Tavo Wallis CLINICAL HISTORY: Worsening dyspnea..eGFR Reviewed date:04/20/2024 08:42:56 AM Interpretation: Performing Lab: Notes/Report: [address] [address]Iesisiljm GFR52>=60 mL/min/1.73m? Abbreviations/Units: Stage 3b Moderate to [...] m2 SCr (standardized serum creatinine) = mg/dL [facility] have implemented the eGFR calculation [...] date:04/20/2024 08:42:56 AM Interpretation: Performing Lab: Notes/Report: [address] [address]BFL6.94.5-11.0 x10*3/mcLRBC2.964.30-5.80 x10*6/mcLHgb9.313.5- 17.5 g/dLHct27.441.0-53.0 %MCV92.480.0-100.0 fLMCH31.427.0-35.0 mzULTY67.031.0- 37.0 %Kpzcjhiv510824-337 x10*3/krNZRK49.111.6-14.8 %Mean Platelet Volume7.26.7- 10.6 fLMagnesium Reviewed date:04/20/2024 08:42:56 AM Interpretation: Performing Lab: Notes/Report: [address] [address]Ldwewtoiz Lvl2.11.7-2.4 mg/dLDiff Auto Reviewed date:04/20/2024 08:42:56 AM Interpretation: Performing Lab: Notes/Report: [address] [address]Gyaxsr Auto50.147.2-70.8 %Lymph Auto32.327.2-40.8 %Lamb Auto 11.24.7-13.9 %Eos Auto5.90.0-6.1 %Basophil Auto0.50.0-1.2 %Neutro Absolute3.5 1.8-7.7 x10*3/mcLLymph Absolute2.21.0-4.8 x10*3/mcLMono Absolute0.80.3-1.1 x10*3/mcLEos Absolute0.40.0-0.4 x10*3/mcLBaso Absolute0.00.0-0.2 x10*3/mcLBasic Metabolic Profile Reviewed date:04/20/2024 08:42:56 AM Interpretation: Performing Lab: Notes/Report: [address] [address]Dudewq Fmo891876-922 mmol/LPotassium Lvl3.73.4-4.8 mmol/L Mfyyctjk5145-994 mmol/PJC02099-11 mmol/LAnion Igq81-96Rwrcame Cxo2979-60 mg/dL JVW694-04 mg/dLCreatinine Lvl1.250.61-1.24 mg/dLBUN Crea Ratio15.210.0-20.0 Calcium Lvl8.68.5-10.3 mg/dL.eGFR Reviewed date:04/20/2024 08:42:56 AM Interpretation: Performing Lab: Notes/Report: [address] [address]Pqryjyurg GFR57>=60 mL/min/1.73m? eGFR = 142 X min(SCr/?, [...] ? = -0.241 (females) or -0.302 (males) [facility] have implemented the eGFR calculation [...] date:04/20/2024 08:42:56 AM Interpretation: Performing Lab: Notes/Report: [address] [address]XUK0.04.5-11.0 x10*3/mcLRBC2.934.30-5.80 x10*6/mcLHgb9.113.5- 17.5 g/dLHct27.241.0-53.0 %MCV92.980.0-100.0 fLMCH31.127.0-35.0 soDUNT24.531.0- 37.0 %Pszvroyz616715-559 x10*3/mjKNKJ27.611.6-14.8 %Mean Platelet Volume7.06.7- 10.6 fLDiff Auto Reviewed date:04/20/2024 08:42:56 AM Interpretation: Performing Lab: Notes/Report: [address] [address]Kushwz Auto49.447.2-70.8 %Lymph Auto32.327.2-40.8 %Lamb Auto9.0 4.7-13.9 %Eos Auto8.70.0-6.1 %Basophil Auto0.60.0-1.2 %Neutro Absolute3.01.8-7.7 x10*3/mcLLymph Absolute1.91.0-4.8 x10*3/mcLMono Absolute0.50.3-1.1 x10*3/mcLEos Absolute0.50.0-0.4 x10*3/mcLBaso Absolute0.00.0-0.2 x10*3/mcLMagnesium Reviewed date:04/20/2024 08:42:56 AM Interpretation: Performing Lab: Notes/Report: [facility] [address] [place], [place] [address]Cgrupfecb Lvl2.11.7-2.4 mg/dL Reason For Referral Reason BONE STIM Diagnosis 1 Anterolisthesis of l umbar spine (M43.16) Referral Organization [facility] Referring Provider First Name Selvon Referring Provider Last Name [place] Referring Provider Speciality Orthopedic Surgery Referred Organization [facility] Referred Address [address] [place], [place],[address], General Notes Viridiana Mehta 02/10/2024 11:35:01 AM > ALL CLINICAL SENT TO [facility] FOR BONE STIM Referral Priority Routine Reason NO AUTH REQ......... .............................NOT SCHEDULED.................................MCR/ANTHEM MRI LUMBAR TO BE DONE AT [facility] Diagnosis 1 Aftercare following surgery of the musculoskeletal system (Z47.89) Referral Organization [facility] Referring Provider First Name Randi Referring Provider Last Name [place] Referring Provider Speciality Orthopedic Surgery Referred Organization [facility] Scheduling Referred Address [address] [place], [place],[address],[place] Procedure 1 MRI Lumbar Spine w/o Dye (92099) General Notes Ania Gilmore 2024 10:07:48 AM >, Shobha Stanton 03/23/2024 10:13:34 AM > MEDICARE PARTS A & B ACTIVE AND EFFECTIVE 07/05/06 PER [facility] WITH [employer] SECONDARY. NO AUTHORIZATION REQUIRED. FAXED TO FACILITY.Anthony Sara 03/26/2024 11:58:10 AM > order faxed Referral Priority Routine Reason NO AUTH REQ..............................04/13/24................................DEB/LUCIUS Fink LUMBAR I & [place] [address] [place] [address] [place] [address] no dictation available Diagnos is 1 Wound dehiscence (T81.30XA) Referra l [facility] Referri ng Provide r First Name Randi Referri ng Provide r Last Name [facility] [place] Provide r Special ity Orthopedic Surgery Referre d [facility] Inpatient Referre d Address [address] [place], [place],[address],[place] Procedu re 1 Incision and drainage of hematoma seroma or fluid collection (21699) Procedu re 2 Incision and drainage complex po wound i nfection (25893) Procedu re 3 Secondary closure surgical wound or dehi scence, ext or comp (26159) General Notes Ania Gilmore 04/12/2024 02:02:58 PM >, Ania Gilmore 04/12/2024 02:41:05 PM >PATIENT WAS SEEN IN THE OFFICE 03/23, MRI ORDERED AND BEING SEEN IN THE OFFICE TOMORROW, Shobha tSanton 04/12/2024 02:45:29 PM > MEDICARE PARTS A & B ACTIVE AND EFFECTIVE 07/05/06 PER [facility] WITH [employer] SECONDARY. NO AUTHORIZATION REQUIRED. FAXED TO [facility].Mando Dawn 04/16/2024 09:09:49 AM >SURGERY WAS CANCELLED. PATIENT ADMITTED FOR OTHER ISSUES AND THEN TRANSFERRED TO [facility] AND WILL BE DONE TOMORROW MORNING, Shobha Stanton 04/16/2024 09:14:49 AM > NOTED, THANK YOU. Referra l Priorit y Stat Medications Medication SIG (Take, Route, Frequency, Duration) Notes Start Date End Date Status Oxycodone Activepotassium chlorideActivelevothyroxineActivemagnesium oxideActivebumetanide ActiveeszopicloneActiveatorvastatinActiveallopurinolActiveEliquisActivetraZODone ActiveFlexeril 10 mg1 tab(s) orally 3 times a day5Activepramipexole ActiveFlexeril 10 mg1 tab(s) orally 3 times a day prn muscle naktew3404/22/2023 Active Social History Tobacco Use: Social History [...] Status Risk Notes Problem History of arthrodesis (511151894) Arthro desis status (Z98.1) ActiveconfirmedProblemDehiscence of surgical wound (66368366)Disruption of external operation (surgical) wound, 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, initial encounter (T81.31XA)ActiveconfirmedProblemPostoperative seroma (310838952)Postprocedural seroma of skin and subcutaneous tissue following other procedure (L76.34)Active confirmedProblemArachnoiditis (1028426)Arachnoiditis (G03.9)Activeconfirmed ProblemSpinal stenosis of lumbar region (06007830)Spinal stenosis, lumbar region without neurogenic claudication (M48.061)ActiveconfirmedProblemNeurogenic claudication (983428040)Lumbar stenosis with neurogenic claudication (M48.062) ActiveconfirmedProblemLeft foot drop (finding) (795452669892079)Acquired left foot drop (M21.372)ActiveconfirmedProblemEncounter for other orthopedic aftercare (Z47.89)ActiveconfirmedProblemAcquired spondylolisthesis (913745068) Anterolisthesis of lumbar spine (M43.16)ActiveconfirmedProblemBilateral sacral insufficiency fracture (disorder) (74622110450274405)Sacral insufficiency fracture with routine healing, subsequent encounter (M84.48XD)Activeconfirmed ProblemOther intervertebral disc degeneration, lumbar region with discogenic back pain and lower extremitypain (M51.362)Activeconfirmed Encounters Encounter Location Date Provider Diagnosis [facility] [facility] [address] [place] [id number] 02/17/2024 Gustabo Diglio Anterolisthesis of lumbar spine M43.16 ; Lumbar stenosis with neurogenic claudication M48.062 and Other intervertebral disc degeneration, lumbar region with discogenic back pain and lower extremity pain M51.362 [facility] [address] [facility] [place] [place] [id number] 02/21/2024 Selvon [place] Spinal stenosis, lumbar region without neurogenic claudication M48.061 ; Other intervertebral disc degeneration, lumbar region with discogenic back pain and lower extremity pain M51.362 ; Anterolisthesis of lumbar spine M43.16 and Acquired left foot drop M21.372 [facility] [address] [place] [address] 03/09/2024 Maxine [facility] Encounter for other orthopedic aftercare Z47.89 and Arthrodesis status Z98.1 [facility] [place] [facility] [place] [address] [facility] of external operation (surgical) wound, 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, initial encounter T81.31XA ; Postprocedural seroma of skin and subcutaneous tissue following other procedure L76.34 ; Encounter for other orthopedic aftercare Z47.89 and Arthrodesis status Z98.1 [facility] [facility] [address] [facility] [place] [address] 04/13/2024 Gustabo Diglamonto Wound dehiscence T81.30XA [facility] [address] [place], [place] [id number] 04/17/2024 Selmerna [place] 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, 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, initial encounter T81.31XA [facility] [facility] [address] [facility] [place] [address] 05/11[facility]counter for other orthopedic aftercare Z47.89 ; Disruption of external operation (surgical) wound, 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, initial encounter T81.31XA and Arthrodesis status Z98.1 [facility] [place] [facility] [place] [address] [place] [address] 02/14/2024 [facility] [place] [address] [address] [id number]/ [place] [address] [place] [address]/[facility] Assessments Encounter Date Diagnosis (ICD Code) Assessment Notes Treatment Notes Treatment Clinical Notes Section Notes 02/17/2024 Lumbar stenosis with neurogenic claudication (ICD-10 - M48.062) 02/17/2024nterolisthesis of lumbar spine (ICD-10 - M43.16)02/21/2024Spinal stenosis, lumbar region without neurogenic claudication (ICD-10 - M48.061) 02/21/2024Other intervertebral disc degeneration, lumbar region with discogenic back pain and lower extremitypain (ICD-10 - M51.362)5Arthrodesis status (ICD-10 - Z98.1)1. 2 weeks s/p L2-5 revision decompression/svelny7303/09/2024 Encounter for other orthopedic aftercare (ICD-10 - Z47.89)1. 2 weeks s/p L2-5 revision decompression/unavbu5403/23/2024Disruption of external operation (surgical) wound, 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, initial encounter (ICD-10 - T81.31XA)1. 4 weeks s/p L2-5 revision decompression and xulzqa4503/23/2024 Postprocedural seroma of skin and subcutaneous tissue following other procedure (ICD-10 - L76.34)1. 4 weeks s/p L2-5 revision decompression and loptiy5504/13/2024 Wound dehiscence (ICD-10 - T81.30XA)1. 6-week status post lumbar decompression and noninstrumented fusion with postoperative fluid collection, wound drainage and wound fwzmagylva99/11/2025Disruption of external operation (surgical) wound, not elsewhere [...] 4 weeks s/p L2-5 revision decompression and mrwwyp5802/21/2024nterolisthesis of lumbar spine (ICD-10 - M43.16)02/17/2024Other intervertebral disc degeneration, lumbar region with discogenic back pain and lower extremitypain (ICD-10 - M51.362) 02/21/2024cquired left foot drop (ICD-10 - M21.372)03/23/2024rthrodesis status (ICD-10 - Z98.1)1. 4 weeks s/p L2-5 revision decompression and okcdro4602/17/2024 OtherA lumbosacral corset brace has been ordered [...] [facility] [...] regards, 1. 2 weeks s/p L2-5 revision decompression/zbvulm3203/23/2024Other Plan established by Dr. Man. Patient evaluated [...] 4 weeks s/p L2-5 revision decompression and aphmgu5204/13/2024Other Plan established by Dr. Man. At this [...] postoperative fluid collection, wound drainage and wound odrpaxinbn06/07/2025 Other Overall patient is starting to improve. Infectious disease is going to extend his meropenem IV for 1 more week and then reassess as there is a very small area of dehiscence still with some drainage. Patient will continue with his LSO brace and physical therapy at the SN[facility]. I did refill his Flexeril for nighttime [...] Date Lumbar spine, 4v flex ext - 30907 2023 Lumbar spine 2v ap and lat - 60286 05/11 Surgery Scheduling 01/25/2024 Surgery Scheduling 04/12/2024 DME - Lumbar Support, Surgical OTS 02/16 GRD-Compression stockings:thigh-high OTS 03/09/2024 BONE STIMULATOR 02/17/2024 MRI : Lumbosacral Spine W/O Contrast - 7 8 03/23/2024 Future Test Test Name Order Date Chest 2 views - 28934 01/25/2024 CBC 01/25/2024 Type and Screen Blood Type 01/25/2024 PT/PTT 01/25/2024 BMP 01/25/2024 MRSA (Bilateral Nares) PCR 01/25/2024 EKG 01/25/2024 Insurance Providers Payer Name Payer Address Payer Phone Subscriber Number Group Number Insured Name Patient Relationship to Insured Coverage Start Date Coverage End [place] [address] [place] [address] [id number] DAMION WALLIS JRelf - patient is the insuredAnthemPO [address] [place] [id number] JR, WILLIAMSelf - patient is the insured Medical (General) History Medical History History ICD Code High Blood Pressure Abnormal Heart RhythmThyroid diseaseStomach ulcersCancer spineKidney stones OsteoarthritisRheumatoid arthritisBleeding DisordersSurgical History Surgery Date(Month/Year) Rotator cuff surgery
--- OUTSIDE RECORDS SUMMARY | 2025-01-28 10:12 | XMS_ITS | Encounter Summary ---
Author Organization [facility] Address [address] [place] [address] Care Team Providers Care Clinical Research Specialist Name Role Phone Unavailable Primary Care Provider Unavailabl e Encounter Details DateTypeDepartmentCare Team (Latest Contact Info)Opsqyrjtork80/20/2025bstract [facility] [address] [place] [id number] Unallocated, [facility], [address] [place] [address] Social History Tobacco UseTypesPacks/DayYears UsedDateSmoking Tobacco: Never AssessedSex and Gender InformationValueDate RecordedSex Assigned at BirthNot on fileLegal Sex Male05/19/2022 6:54 PM EDTGender IdentityNot on fileSexual OrientationNot on filedocumented as of this encounter Plan of Treatment Not on file documented as of this encounter Visit Diagnoses Not on filedocumented in this encounter
--- OUTSIDE RECORDS SUMMARY | 2025-01-28 10:12 | XMS_ITS | Encounter Summary ---
Author Organization [facility] Address [address] [place] [address] Care Team Providers Care Developer Analyst Name Role Phone Unavailable Primary Care Provider Unavailabl e Encounter Details DateTypeDepartmentCare Team (Latest Contact Info)Jxizdvragks18/21/2025linisync Result Encounter [facility] Unsolicited Mendy Bull MD [address] [facility] [address] [place] [address] Social History Tobacco UseTypesPacks/DayYears UsedDateSmoking Tobacco: Never AssessedSex and Gender InformationValueDate RecordedSex Assigned at BirthNot on fileLegal Sex Male05/19/2022 6:54 PM EDTGender IdentityNot on fileSexual OrientationNot on filedocumented as of this encounter Plan of Treatment Not on file documented as of this encounter Procedures Procedure NamePriorityDate/TimeAssociated DiagnosisCommentsURINE CULTURE - [facility] Kdacool0901/25/2025 9:00 AM EST [facility] UA (CLEAN/CATCH) STRAINER CLEANER/MICRO IF IND.Blaqovy8701/25/2025 9:00 AM EST documented in this encounter Results * (ABNORMAL) URINE CULTURE - [facility] (01/25/2025 9:00 AM EST)ComponentValueRef RangeTest MethodAnalysis TimePerformed AtPathologist SignatureURINE CULTURE - [facility] ??Urine Culture - [facility] SEE[facility] RESULT^[facility] RESULT (A)TBHURINE CULTURE - [facility]SEEA SEE SCANNED REPORT, ABNORMAL^SEE SCANNED REPORT, ABNORMAL(A)TBHSpecimen (Source)Anatomical Location / LateralityCollection Method / VolumeCollection TimeReceived Time01/25/2025 9:00 AM EST01/25/2025 1:40 PM EST Narrative [facility] - 01/27/2025 5:39 PM EST Authorizing ProviderResult TypeResult StatusMendy Bull MDLAB BLOOD ORDERABLES Final ResultPerforming OrganizationAddressCity/State/ZIP CodePhone Number [facility] * (ABNORMAL) [facility] UA (CLEAN/CATCH) STRAINER CLEANER/MICRO IF IND. (01/25/2025 9:00 AM EST) ComponentValueRef [...] Bull MDCLINISYNCFinal Result Performing OrganizationAddressCity/State/ZIP CodePhone Number [facility] documented in this encounter Visit Diagnoses Not on filedocumented in this encounter
[2025-01-28] MEDS: BUDESONIDE 0.5 MG/2 ML AMPULE NEB IH ×2 (10:21→21:22)
--- OUTSIDE RECORDS SUMMARY | 2025-01-28 10:28 | XMS_ITS | CCD ---
Author Organization [facility] ion Partnership [facility] Care Team Providers Care [employer] Teacher Name Role Phone Opal Ga Unavailable Unavailable Unavailable Opal Ga Unavailable DO Opal Ga Primary Care Provider AKUA Rodarte Attending Provider [phone] DO Opal Ga Attending Provider DO Opal Ga Primary Care Provider DO Opal Ga Attending Provider MD Frankie Paiz Emergency Provider DO Dharmesh Zavala Admit Provider [phone] DO Dharmesh Zavala Attending Provider Shy Mcdonough Other Provider Unavailable DO Meme De La Torre Other Provider MD aMni Dickens Other Provider DO Matheus Rizvi Other Provider [phone] Antonia ANP- Hoa Other Provider DO Vikas Mane Other Provider RIKY Degroot Other Provider MD Raji Ennis Attending Provider MD Frankie Reynolds Other Provider RIKY Mix Attending Provider DO Opal Ga Attending Provider Kuns, DO Opal Primary Care Provider Kuns, DO Opal Myers Attending Provider Kuns, Dr. Opal Parker Primary Care Unavaila cb Gomez, Ms. Enedelia Gusmanshelia San Attending Rula Gomez, Dane Enedelia Gusmanshelia San Referring Unavai noe Ga, Dr. Opal Parker Primary Care Unavaila cb Gomez, Ms. Eendelia Gusmanshelia San Attending Rula Gomez, Ms. Enedelia [...] Unavailable Tjs, DO Wiggins Primary Care Provider [phone] Tjs, DO Wiggins Attending Provider [phone] Kuns Opal HARGROVE Primary Care Provider [phone] Kuns, DO Opal Primary Care Provider DO Bhupinder Mcintyre Attending Provider [phone] Kuns, DO Wiggins Attending Provider Kuns Opal HARGROVE Primary Care Provider Opal Ga DO Primary Care Provider JUNE, RANDI F Admitting Unavailable JUNE, MARCELLUSN F Attending Unavailable OPAL GA Primary Care Unavailable ORIANA, OLUREMI A Consulting Unavailable Kuns DO, Opal Primary Care Provider Tjs DOOpal Attending Provider [phone] Bunting DO, Sandip R Attending Provider Marcos [...] Care Provider Amy TIDWELL, Mitchell Admit Provider [phone] Michele Knight MD Attending Provider Randi Batista MD Attending Provider Bunting DO, Sandip Attending Provider Bunting DO, Sandip R Attending Provider Veronica HARGROVE, Marcos Fink Emergency Provider Daily DOOpal Primary Care Provider [phone] Mitchell Reyes MD Admit Provider [phone] Michele Knight MD Attending Provider Randi Batista MD Attending Provider [phone] Bunting DO, Sandip Attending Provider Bunting DO, Sandip R Attending Provider Tjs , Opal Primary Care Provider [phone] Tjs Opal HARGROVE Primary Care Provider Unavailable Primary Care Provider Unavailleigh ann e Kiera SIZING MACHINE TENDER, Melvi M Emergency Provider Ramona DO, Sandip R Primary Care Provider [phone] Julian TIDWELL, Mario Admit Provider Julian TIDWELL, Mario Attending Provider Talisha TIDWELL, Keith Other Provider Shane TIDWELL, Vinay Myers Other Provider Trisha Hebert MD Other Provider Walter TIDWELL, Ronald Urbina Other Provider Lester TIDWELL, Keith Fink Other Provider Marvin TIDWELL, Albert Whitmore Other Provider Negro TIDWELL, Bayron Other Provider Laron CLOTH BLEACHING RANGE OPERATOR CHIEF-C, Nkechi Burnette Other Provider [facility] [place] Other Provider Gail TIDWELL, Frankie Other Provider Dimitry TIDWELL, Stephanie Attending Provider Trisha Hebert Attending Unavailable Ambar Summers Attending Unavailable BAYRON TOM Attending Unavail able BAYRON TOM Referring Unavail able Nkechi Larry Attending Unavailable Ambar Summers Attending Unavailable Tye Pompa Attending Unavailable [facility] SIZING MACHINE TENDER-BEAN VINER, Tamar Asencio [facility]ending [facility] Tye Pompa Attending Unavailable [facility] SIZING MACHINE TENDER-BEAN VINER, Tamar Asencio Attending U grace hospitalailable [facility], [facility] SIZING MACHINE TENDER-BEAN VINER, Tamar Asencio Attending U navailable [facility] SIZING MACHINE TENDER-BEAN VINER, Tamar Asencio Attending U navailable Francisco Javier [...] DO, Tavo Be Primary Care Unavai labfrederic [facility], Sandip R Attending Provider Melvi Qureshi APRN Emergency Provider [facility], Sandip R Primary Care Provider [phone] Julian TIDWELL, Mario Admit Provider Keith Woodall MD Other Provider [phone] Vinay Lynn MD Other Provider Trisha Hebert MD Other Provider Walter TIDWELL, Ronald Urbina Other Provider [phone] Keith Batista MD Other Provider Albert Wong MD Other Provider Negro TIDWELL, Bayron Other Provider Laron ALLEN-C, Nkechi Burnette Other Provider Jason [facility], Ella Other Provider Frankie Reynolds MD Other Provider Stephanie Moraes MD Attending Provider Julian TIDWELL, Mario Other Provider Itzkowitz DO, Bryce Other Provider [phone] Frankie Reynolds MD Attending Provider Opal Ga DO Primary Care Provider Opal Ga DO Attending Provider NO FAMILY, PHYSICIAN Primary Care Provider Unava ilable Bunting DO, Sandip R Attending Provider Keely Montoya APRN Attending Provider Bunting DO, Sandip R Attending Provider Bhupinder Mcintyre DO Attending Provider Bunting DO, Sandip R Attending Provider [phone] Bunting DO, Sandip R Attending Provider Julian TIDWELL, Mario Other Provider Itzkofelice DO, Bryce Other Provider Frankie Reynolds MD Attending Provider [phone] Opal Ga DO Primary Care Provider Opal [...] Attending Provider Opal Ga DO Attending Provider [phone] Opal Ga DO Primary Care Provider Terence Steele PA-C Emergency Provider Frankie Johnson DO Admit Provider Franck Gagnon DO Other Provider Jovany Stovall MD Attending Provider Jovany Stovall MD Other Provider Sree Thao DO Emergency Provider [phone] Akash Mccartney MD Admit Provider Akash Mccartney MD Attending Provider Opal Ga DO Primary Care Provider Frankie Reynolds MD Attending Provider [phone] Terence Steele PA-C Emergency Provider Frankie Johnson DO Admit Provider Franck Gagnon DO Other Provider Jovany Stovall MD Attending Provider Jovany Stovall MD Other Provider Keely Montoya APRN Attending Provider Sree Thao DO Emergency Provider Akash Mccartney MD Admit Provider Michele Knight MD Attending Provider Opal Ga DO Primary Care Provider [phone] Keely Montoya APRN Attending Provider Michele Knight MD Attending Provider [phone] Niki CLOTH BLEACHING RANGE OPERATOR CHIEF-C, Cristy Attending Provider Paul , Liliana Dasilva Attending Provider [facility], Opal Primary Care Provider [phone] Niki CLOTH BLEACHING RANGE OPERATOR CHIEF-C, Cristy Attending Provider [phone] Marker DO, Liliana Dasilva Attending Provider [phone] Clarence Schroeder DO Attending Provider Sha Pepe MD Attending Provider Bunting, Sandip R Attending Unavailable Bunting, Sandip R Admitting Unavailable Michele Knight Attending Unavailable Opal Ga [facility] Care Unavailable DoameAkash cody Admitting [...] Sandip Attending Unavailable Michele Knight Attending Unavailable [facility] Unavailable Amy, Mitchell Admitting Unavailable Frings, Frankie Attending Unavailable Stovlal, Jovany E Consulting Unavailable Kuns, Opal Primary [...] Attending Unavailable Marker, Liliana Dasilva Admitting Unavailable ButteClarence Attending Unavailable [place], Clarence Fink Admitting Unavailable Bunting, Sandip Admitting Unavailable Bunting, Sandip Attending Unavailable Bunting, Sandip R Attending Unavailable Bunting, Sandip R Admitting Unavailable Allergies Allergy ClassificationReported Allergen(s)Allergy TypeDate of OnsetReaction(s) Facility (20 sources)fentaNYL; Translations: [Duragesic-75 PT72]Drug Ubfijih17-14-9918 Dizziness, Nausea [facility]UnUpper [facility] (20 sources)Indomethacin; Translations: [Indocin]Drug Amlwxtz84-10-9897QofswACEllen Ville [address] DO Work Phone: (20 sources)Penicillins; Translations: [Penicillins]Allergy to drug (finding) 14-14-6733Xvagi, WeaknessSuburban Community Hospital & Brentwood HospitalComment on above: 10/09/24 - had a penicillin injection prior to a procedure 20-30 years ago and fell down some stairs afterward (20 sources)zolpidem; Translations: [Ambien]Drug Wwuecof84-11-2122Allkjaq, Other (See Comments)-[facility] DO Work Phone: (20 sources)Penicillin; Translations: [penicillin]Drug Manibky19-81-1173 anaphylaxisSuburban Community Hospital & [facility] (20 sources)Duragesic-75Drug -68-6858tdwmsiGnkxmajve [facility] Medical [facility] (20 sources)fentaNYL; Translations: [fentaNYL]Drug Zqvwemf54-83-2990Zioifillh, Dizziness, loopy [facility] (20 sources)Indomethacin; Translations: [INDOMETHACIN]Drug Wmitmaf29-02-8396 DizzinessSuburban Community Hospital & [facility] (20 sources)zolpidem; Translations: [ZOLPIDEM]Drug Teeaypm94-39-3163Nffgppfnz, Confusion, memory lossSuburban Community Hospital & [facility] (1 source)fentaNYLDrug AllergyThe [facility] (2 sources)PenicillinsDrug allergy (disorder)55-75-6977Wgk [facility] (1 source)ProcyclidineDrug AllergyThe [facility] (1 source)zolpidemDrug AllergyThe [facility] (4 sources)PenicillinsDrug Ohzdumz86-50-8369[place], Mental Status Change [facility] Work Phone: (1 source)Duragesic-25; Translations: [Duragesic-25]Propensity to adverse reactions (disorder)[facility] Repository (1 source)FentaNYL Matrix; Translations: [FentaNYL Matrix]Propensity to adverse reactions (disorder)[facility] Repository (1 source)PenicillinsDrug allergy (disorder)13-10-2104YodmuynccSuburban Community Hospital & [facility] Medications Current Medications MedicationDrug Class(es)DatesSig (Normalized)Sig (Original)albuterol 0.833 mg/ml / ipratropium bromide 0.167 mg/ml inhalation solution (20 sources)Anticholinergic, beta2-Adrenergic AgonistStart: 73-48-6785Xcjht: 82-97-0007rvsb 1 mL by inhalation three times dailyStart: 07-12-2024 End: 04-13-1424Sjjmo: 07-12-2024 End: 71-86-1836hoft 1 mL by inhalation every six hours as needed for wheezing Ipratropium-Albuterol 0.5 mg-3 mg(2.5 mg base)/3 mL solution for nebulization Discontinued 3 ML INHALATION Every 6 hours as needed for shortness of breath or wheezing July 12, 2024 12:00am September 1:59pmazithromycin 250 mg oral tablet (3 sources)Macrolide AntimicrobialStart: 22-96-7832Dwwksiuag Z-Jed 250 MG as directed Orally Sep, Activebudesonide 0.25 mg/ml inhalation suspension (4 sources)CorticosteroidStart: 67-87-1651Acitd: 74-73-2113zznt 0.5 mg by inhalation twice dailybumetanide 1 mg oral tablet (20 sources)Loop DiureticStart: mg, IntraVENous, ONCE, 1 dose, On 02/25/24 at 0900Start: 10-17-2019 End: 34-34-9831Iotef: 10-17-2019 End: 28-20-3661Jahdj: 01-14-2016 End: 81-68-9284awsw 1 tablet by mouth once dailyBumetanide 1 mg tablet Discontinued 1 MG PO Daily June 06, 2023 12:00am June 06, 2023 3:49pmStart: 21-09-6931kzpt 0.5 tablet by mouth once daily as neededBumex 1 MG 0.5 tablet Orally Once a day PRN Jan, ActiveStart: 01-74-9506bisn 1 tablet by mouth every other day as neededBumex 1 MG 1 tablet Orally every other day PRN Jan, ActiveStart: 46-40-7788QCXSM 2 MG TABLET Take one(1) tablet daily. 0 04/07/2004 Activecefdinir 300 mg oral capsule (1 source)Cephalosporin AntibacterialStart: 02-27-2024 End: 73-05-1074fdhi 1 capsule by mouth twice dailycefdinir (OMNICEF) [...] mg oral capsule (1 source)Nonsteroidal Anti-inflammatory DrugStart: 16-68-7874LPTSAEZP 200 MG CAPSULE Take one(1) capsule daily. 0 04/07/2004 ActiveCompression Pump (20 sources)Start: 77-09-7163Bsiczttipaa Pump as directed to bilateral lower extremity Q other PM Feb, Activecompression stockings 30-40 mmhg (20 sources)Start: 19-27-2268fmmjsrqnxjl stockings 30-40 mmhg as directed knee high as directed 2 pair 30-40mmhg size xs. 5 gvaris, 923cx5, [place] [id number] Sep, ActiveStart: 84-19-0871eeufhxxorkd stockings 30-40 mmhg as directed knee high as directed 2 pair Sep, ActivedilTIAZem hydrochloride 30 mg oral tablet (3 sources)Calcium Channel BlockerStart: 59-69-0224yjxszvkudsie 5 mg oral tablet (1 source)Serotonin Reuptake InhibitorStart: 53-96-7905TOVGFOL 5 MG TABLET take one half daily 0 04/07/2004 Activeglucagon (rdna) 1 mg injection (1 source)Antihypoglycemic AgentStart: 55-01-71101603 ml glucose 100 mg/ml injection (3 sources)Start: 15-94-6737Yjsac: 48-91-1764wrwrligs bolus 10% 125 mLStart: 33-39-3926Wgnwvteju (20 sources)Magnesium 400 MG Orally Activetake 1 tablet by mouth once daily Magnesium 400 MG Oral Tablet Take 1 tablet daily Quantity: 0 Refills: 0 Ordered: 05-Jan-2021 DO Activemagnesium oxide 400 mg oral tablet (20 sources)Start: 01-05-2024 End: 99-11-3973sjlk 1 tablet by mouth once dailymagnesium oxide (Mag-Ox) 400 mg (241.3 mg magnesium) tablet Indications: Chronic atrial fibrillation (Multi) , Essential hypertension, benign , Non-ischemic cardiomyopathy (Multi) Take 1 tablet (400 mg) by mouth once daily. 90 tablet 3 01/05/2024 01/04/2025 Active Start: 74-10-5983Hjwmn: 73-97-9249lmeo 1 tablet by mouth once dailyMagnesium Oxide 400 (240 Mg) MG Oral Tablet TAKE 1 TABLET BY MOUTH EVERY DAY Quantity: 90 Refills: 3 Ordered: 16-Feb-2022 Tavo Mcintyre DO Start : 15-Feb-2022 Active Start: 10-17-2019 End: 16-33-4168slriuyzop hydrochloride 2.5 mg oral tablet (2 sources)alpha-Adrenergic AgonistStart: 64-69-4277baik 2.5 mg by mouth three times daily at mealtime2.5 mg, Oral, 3 TIMES DAILY WITH MEALS, First dose (after last modification) on Tue02/24/24 at 0800, Until Discontinued, Do not give after 1800 or within 4 hrs of bedtime. Hold for sbp > 120Start: 02-22-2024 End: 88-18-5628rfhe 10 mg by mouth three times daily at mg, Oral, 3 TIMES DAILY WITH MEALS, First dose on Tue02/22/24 at 2130, Until Discontinued, Do not give after 1800 or within 4 hrs of bedtime.Multi For Him (20 sources)Multi For Him Activenystatin 100 unt/mg topical powder (20 sources)Polyene AntifungalStart: 93-28-7916Lyvxc: 08-03-1239Qqymx: 06-06-2023 End: 08-06-4753Pjjal: 06-06-2023 End: 91-70-9619Qzvekxft 100,000 unit/gram powder Discontinued 1 APPLIC TOPICAL Twice daily June 06, 2023 12:00amJan2024 11:14am FreeTextSi application Externally Twice a day; Note: Source Status: Taking; Refills: 3; Provider: Daily Wiggins PStart: 52-01-6370Xvthkbub [id number] UNIT/GM 1 application Externally Twice a day for 30 days Feb, Activeondansetron (ZOFRAN-ODT) disintegrating tablet 4 mg (1 source)Start: 88-42-2910zhnmovgkqvv (ZOFRAN-ODT) disintegrating tablet 4 mg microencapsulated potassium chloride 20 meq extended release oral tablet (20 sources)Start: 80-44-0512Juerl: 38-24-0010bfsnccyny chloride (KLOR-CON M) extended release tablet 40 mEqStart: 12-21-2019 End: 34-67-1415Icbnk: 12-21-2019 End: 03-73-7687xtnn 1 tablet by mouth at bedtimePotassium Chloride 20 mEq Tablet Extended Release Discontinued 20 MEQ PO Bedtime December 21, 201912:00am January 04, 2020 12:33pm On Hold: Resume on 12/26/19.Start: 70-33-1505pvev 1 tablet by mouth once dailyK-Dur 20 mEq 1 tablet orally Once a day Oct, ActiveStart: 04-07-2004 End: 46-14-9377ynwdcwtqmro dihydrochloride 0.25 mg oral tablet (15 sources)Nonergot Dopamine AgonistStart: 10-05-2024 End: 12-18-2024 End: 96-61-5888szor 1 tablet by mouth once dailypramipexole (MIRAPEX) 0.25 MG tablet Take 1 tablet by mouth daily 02/27/2024 Discontinued (Stop Taking at Discharge)terazosin 2 mg oral capsule (1 source)alpha-Adrenergic BlockerStart: 89-62-4625ESSNYO 2 MG CAPSULE Take one(1) capsule daily. 0 04/07/2004 Active Completed/Discontinued Medications MedicationDrug Class(es)DatesSig (Normalized)Sig (Original)acetaminophen 500 mg oral tablet (20 sources)Start: 03-10-2024 End: 52-50-6344Aoaao: 03-10-2024 End: 37-78-4874hesa 1 tablet by mouth three times daily as needed for pain Acetaminophen (Acetaminophen Extra Strength) 500 mg tablet Discontinued 500 MG PO Three times dailyas needed for pain 20 July 17, 2024 1:26pm December 12, 2024 3:21pmStart: 46-79-4784wors 1 tablet by mouth twice dailyAcetaminophen (Acetaminophen Extra Strength) 500 mg tablet Active 500 MG PO Twice daily March 10, 2024 12:00amStart: 91-92-4866107 mg, Rectal, EVERY 4 HOURS PRN, Starting on 02/25/24 at 0700, Until Discontinued, Pain Mild (1-3), Fever, Maximum dose of acetaminophen is 4000 mg from all sources in 24 hours.Start: 06-06-2023 End: 31-83-9415Auoxf: 06-06-2023 End: 99-48-6865Ojupv: 01-04-2020 End: 50-90-9251Plgmw: 01-04-2020 End: 65-96-3398tbmx 2 tablets by mouth twice dailyAcetaminophen 500 mg Tablet Discontinued 1000 MG PO Twice daily 60 0 January 04, 2020 12:00am June 06, 2023 11:56amStart: 01-04-2020 End: 69-92-9977Eqazc: 01-04-2020 End: 89-62-8958ybdv 1000 mg by mouth twice dailyAcetaminophen Discontinued 1000 MG PO Twice daily January 04, 2020 12:00am June 06, 2023 11:56amStart: 10-17-2019 End: 82-71-0151Zlvnu: 10-17-2019 End: 55-36-0686mocs 2 tablets by mouth twice dailyAcetaminophen (Tylenol) 325 mg Tablet Discontinued 650 MG PO Twice daily October 17, 2019 12:00am November 06, 2019 9:42am paintake 1 capsule by mouth every six hoursTylenol 325 MG 1 capsule as needed Orally every 6 hrs Activeacetaminophen 325 mg / HYDROcodone bitartrate 5 mg oral tablet (20 sources)Opioid AgonistStart: 11-06-2019 End: 46-09-9463Ihuqg: 11-06-2019 End: 31-16-9527glgj 1 tablet by mouth every six hours as needed for pain Hydrocodone-Acetaminophen (Mckinney) 5-325 mg tablet Discontinued 1 TAB PO Q6H as needed for pain 10 0Sept2019November 06, 2019 9:42am Other injury of unspecified body regionStart: 11-06-2019 End: 49-09-9433Gario: 11-06-2019 End: 96-76-7867gomx 1 tablet by mouth every six hours as needed for pain Hydrocodone-Acetaminophen (Mckinney) 5-325 mg tablet Discontinued 1 TAB PO Q6H as needed for pain 10 November 06, 2019 November 05, 2020 9:42amStart: 11-06-2019 End: 45-15-7500ords 1 tablet by mouth every six hours as needed for pain Hydrocodone-Acetaminophen (Mckinney) 5-325 mg tablet Discontinued 1 TAB PO Q6H as needed for pain November 06, 2019 November 06, 2019 9:42amStart: 11-06-2019 End: 07-72-1045somi 1 tablet by mouth every six hours as needed for pain Hydrocodone-Acetaminophen (Mckinney) 5-325 mg tablet Discontinued 1 TAB PO Q6H as needed for pain November 06, 2019 November 06, 2019 9:42amStart: 11-06-2019 End: 65-52-5353ohsq 1 tablet by mouth every six hours as needed for pain Hydrocodone-Acetaminophen (Mckinney) 5-325 mg tablet Discontinued 1 TAB PO Q6H as needed for pain November 06, 2019 November 06, 2019 9:42amStart: 11-06-2019 End: 43-95-7392okac 1 tablet by mouth every six hours as needed for pain Hydrocodone-Acetaminophen (Mckinney) 5-325 mg tablet Discontinued 1 TAB PO Q6H as needed for pain November 06, 2019 November 06, 2019 9:42amStart: 11-06-2019 End: 57-31-5487djch 1 tablet by mouth every six hours as needed for pain Hydrocodone-Acetaminophen (Mckinney) 5-325 mg tablet Discontinued 1 TAB PO Q6H as needed for pain November 06, 2019 November 06, 2019 9:42amStart: 11-06-2019 End: 24-51-1480Dwblq: 11-06-2019 End: 27-62-3718Qhrwn: 11-06-2019 End: 90-54-2513fvqu 1 tablet by mouth every six hours as needed for pain Hydrocodone-Acetaminophen (Mckinney) 5-325 mg tablet Discontinued 1 TAB PO Q6H as needed for pain November 06, 2019 November 06, 2019 9:42amStart: 11-06-2019 End: 21-68-8849jeym 1 tablet by mouth every six hours as needed for pain Hydrocodone-Acetaminophen (Mckinney) 5-325 mg tablet Discontinued 1 TAB PO Q6H as needed for pain November 06, 2019 November 06, 2019 9:42amStart: 11-06-2019 End: 67-87-2749zmer 1 tablet by mouth every six hours as needed for pain Hydrocodone-Acetaminophen (Mckinney) 5-325 mg tablet Discontinued 1 TAB PO Q6H as needed for pain November 06, 2019 November 06, 2019 9:42amStart: 11-06-2019 End: 37-65-9009kihh 1 tablet by mouth every six hours as needed for pain Hydrocodone-Acetaminophen (Mckinney) 5-325 mg tablet Discontinued 1 TAB PO Q6H as needed for pain 10 November 06, 2019 November 06, 2019 9:42amStart: 11-06-2019 End: 75-90-7891Pvxpr: 11-06-2019 End: 35-57-6809Nduoc: 11-06-2019 End: 64-41-6230Yrvmx: 11-06-2019 End: 08-56-3574Tsfbw: 11-06-2019 End: 38-92-2294Sgyae: 11-06-2019 End: 15-93-1432ovca 1 tablet by mouth every six hours as needed for pain Hydrocodone-Acetaminophen (Mckinney) 5-325 mg tablet Discontinued 1 TAB PO Q6H as needed for pain November 06, 2019 November 06, 2019 9:42amStart: 11-06-2019 End: 34-05-8713nsgt 1 tablet by mouth every six hours as needed for pain Hydrocodone-Acetaminophen (Mckinney) 5-325 mg tablet Discontinued 1 TAB PO Q6H as needed for pain November 06, 2019 November 06, 2019 9:42amStart: 11-06-2019 End: 18-60-2840Zlyzz: 11-06-2019 End: 21-09-5933Byrzw: 11-06-2019 End: 08-27-8566fzgq 1 tablet by mouth every six hours as needed for pain Hydrocodone-Acetaminophen (Mckinney) 5-325 mg tablet Discontinued 1 TAB PO Q6H as needed for pain November 06, 2019 November 06, 2019 9:42amStart: 11-06-2019 End: 96-17-6195ujvr 1 tablet by mouth every six hours as needed for pain Hydrocodone-Acetaminophen (Mckinney) 5-325 mg tablet Discontinued 1 TAB PO Q6H as needed for pain November 06, 2019 November 06, 2019 9:42amStart: 11-06-2019 End: 11-75-0163ufuw 1 tablet by mouth every six hours as needed for pain Hydrocodone-Acetaminophen (Mckinney) 5-325 mg tablet Discontinued 1 TAB PO Q6H as needed for pain November 06, 2019 November 06, 2019 9:42amStart: 11-06-2019 End: 89-90-1324jucw 1 tablet by mouth every six hours as needed for pain Hydrocodone-Acetaminophen (Mckinney) 5-325 mg tablet Discontinued 1 TAB PO Q6H as needed for pain November 06, 2019 November 06, 2019 9:42amStart: 11-06-2019 End: 20-79-8129mirv 1 tablet by mouth every six hours as needed for pain Hydrocodone-Acetaminophen (Mckinney) 5-325 mg tablet Discontinued 1 TAB PO Q6H as needed for pain November 06, 2019 November 06, 2019 8:42amStart: 11-06-2019 End: 55-59-3993izjv 1 tablet by mouth every six hours as needed for pain Hydrocodone-Acetaminophen (Mckinney) 5-325 mg tablet Discontinued 1 TAB PO Q6H as needed for pain November 06, 2019 November 06, 2019 8:42amStart: 11-06-2019 End: 35-35-0040wabp 1 tablet by mouth every six hours as needed for pain Hydrocodone-Acetaminophen (Mckinney) 5-325 mg tablet Discontinued 1 TAB PO Q6H as needed for pain November 06, 2019 November 06, 2019 8:42amStart: 11-06-2019 End: 28-21-7900hzfq 1 tablet by mouth every six hours as needed for pain Hydrocodone-Acetaminophen (Mckinney) 5-325 mg tablet Discontinued 1 TAB PO Q6H as needed for pain November 06, 2019 November 06, 2019 8:42amStart: 11-06-2019 End: 62-38-1198ixtc 1 tablet by mouth every six hours as needed for pain Hydrocodone-Acetaminophen (Mckinney) 5-325 mg tablet Discontinued 1 TAB PO Q6H as needed for pain November 06, 2019 November 06, 2019 8:42amStart: 11-06-2019 End: 77-97-0801lajy 1 tablet by mouth every six hours as needed for pain Hydrocodone-Acetaminophen (Mckinney) 5-325 mg tablet Discontinued 1 TAB PO Q6H as needed for pain November 06, 2019 November 06, 2019 8:42amStart: 11-06-2019 End: 62-93-4855vyga 1 tablet by mouth every six hoursHydrocodone-Acetaminophen (Mckinney) 5-325 mg tablet Discontinued 1 TAB PO Q6H November 06, 2019 S 2019 9:42amStart: 11-06-2019 End: 96-01-9689dxlf 1 tablet by mouth every six hoursHydrocodone-Acetaminophen (Mckinney) 5-325 mg tablet Discontinued 1 TAB PO Q6H November 06, 2019 S 2019 9:42amStart: 11-06-2019 End: 12-48-2934xykb 1 tablet by mouth every six hoursHydrocodone-Acetaminophen (Mckinney) 5-325 mg tablet Discontinued 1 TAB PO Q6H November 06, 2019 S 2019 9:42amStart: 11-06-2019 End: 46-33-9597hmew 1 tablet by mouth every six hoursHydrocodone-Acetaminophen (Mckinney) 5-325 mg tablet Discontinued 1 TAB PO Q6H November 06, 2019 S 2019 9:42amStart: 11-06-2019 End: 68-65-6636swwg 1 tablet by mouth every six hoursHydrocodone-Acetaminophen ([place]) 5-325 mg tablet Discontinued 1 TAB PO Q6H November 06, 2019 S 2019 8:42amStart: 11-06-2019 End: 91-41-5749qptm 1 tablet by mouth every six hoursHydrocodone-Acetaminophen ([place]) 5-325 mg tablet Discontinued 1 TAB PO Q6H November 06, 2019 S 2019 8:42amStart: 11-06-2019 End: 59-76-2951xpvb 1 tablet by mouth every six hoursHydrocodone-Acetaminophen ([place]) 5-325 mg tablet Discontinued 1 TAB PO Q6H November 06, 2019 S 2019 8:42amStart: 11-06-2019 End: 84-92-9549sapf 1 tablet by mouth every six hoursHydrocodone-Acetaminophen ([place]) 5-325 mg tablet Discontinued 1 TAB PO Q6H November 06, 2019 S 2019 8:42amStart: 11-06-2019 End: 56-31-8757oxdf 1 tablet by mouth every six hoursHydrocodone-Acetaminophen ([place]) 5-325 mg tablet Discontinued 1 TAB PO Q6H November 06, 2019 S sheyariel 2019 9:42amStart: 11-06-2019 End: 53-80-8764iiil 1 tablet by mouth every six hoursHydrocodone-Acetaminophen ([place]) 5-325 mg tablet Discontinued 1 TAB PO Q6H November 06, 2019 S sheyariel 2019 9:42amStart: 60-93-5939LVSEIZF 5/500 TABLET as needed 0 04/07/2004 Activeacetaminophen 325 mg / oxyCODONE hydrochloride 5 mg oral tablet (20 sources)Opioid AgonistStart: 06-06-2023 End: 74-46-6739yiif 1 tablet by mouth every six hours as needed for pain Oxycodone-Acetaminophen 5-325 mg tablet Discontinued 1 TAB PO Every 6 hours as needed for pain 8 2 0 July 17, 2024 October 05, 2024 7:29pm Abscess of left lower extremity Cutaneous abscess of left lower limbStart: 02-18-2022 End: 08-72-5428jmqb 1 tablet by mouth twice dailyoxyCODONE-acetaminophen (Percocet) 5-325 mg tablet Take 1 tablet by mouth 2 times a day. 07/08/2022 ActiveStart: 01-16-2022 End: 55-81-3027okff 1 tablet by mouth every eight hours as needed for pain Oxycodone-Acetaminophen 5-325 mg Tablet Discontinued 1 TAB PO Q8H as needed for Moderate Pain 9 3 0Nov2021June 06, 2023 11:57am Low back pain Low back pain, unspecifiedStart: 01-04-2020 End: 58-14-9230heeh 1 tablet by mouth every four hours as needed for pain Oxycodone-Acetaminophen 5-325 mg Tablet Discontinued 1 TAB PO Q4H as needed for Mild Pain 30 7 0 January 04, 2020 January 16, 2022 1:30pm Status post total left knee replacement Presence of leftartificial knee jointStart: 11-06-2019 End: 26-31-6062Bjhhz: 11-06-2019 End: 18-75-7390pwmj 1 tablet by mouth every four to [...] Orally every [address] Brambila PRN Npufvm63 ml albumin human, fci 250 mg/ml injection (1 source)Human Serum AlbuminStart: [...] tablet (20 sources)Xanthine Oxidase InhibitorStart: 04-07-2004 End: 96-87-0327jvgavpbx 5 mg oral tablet (20 sources)Factor Xa InhibitorStart: 12-12-2024 End: 00-06-5443Cetme: 03-15-2024 End: 17-48-7184Djdic: 03-15-2024 End: 24-96-2065arpw 2 tablets by mouth twice dailyApixaban (Eliquis) 2.5 mg Tablet Discontinued 5 MG PO Twice daily July 12, 2024 12:00am December 18, 2024 11:08amStart: 10-17-2019 End: 09-49-6552mfdbelvgnjon 40 mg oral tablet (20 sources)HMG-CoA Reductase InhibitorStart: 10-17-2019 End: 87-88-2356mfmdxfeejn hydrochloride 0.137 mg/actuat metered dose nasal spray (20 sources)Histamine-1 Receptor AntagonistStart: 10-17-2019 End: 61-88-2384hqzeksapnm hydrochloride 0.137 mg/actuat / fluticasone propionate 0.05 mg/actuat metered dose nasalspray (20 sources)Corticosteroid, Histamine-1 Receptor AntagonistStart: 10-17-2019 End: 51-68-4214Iesnp: 10-17-2019 End: 34-95-1219Zdwzmiytfe-Fluticasone 137-50 mcg/spray [place],Non-Aerosol Discontinued 1 SPRAY INTRANASAL Twice daily October 17, 2019 12:00am December 24, 2019 11:02amStart: 10-17-2019 End: 60-52-4199Wvfsrxasoh-Fluticasone Discontinued 1 SPRAY INTRANASAL Twice daily October 16, 2019 11:00pm December 24, 2019 10:02amStart: 10-17-2019 End: 64-21-1373Wxpnmxkfpt-Fluticasone Discontinued 1 SPRAY INTRANASAL Twice daily October 17, 2019 12:00am December 24, 2019 11:02amAzelastine-Fluticasone 137-50 mcg/spray [place],Non-Aerosol (12 sources)Start: 10-17-2019 End: 63-62-2356Qkcgwwinvm-Fluticasone 137-50 mcg/spray [place],Non-Aerosol Discontinued 1 SPRAY INTRANASAL Twice daily October 17, 2019 12:00am December 24, 2019 11:02amStart: 10-17-2019 End: 24-45-6343Bgcrlszgdz-Fluticasone 137-50 mcg/spray [place],Non-Aerosol Discontinued 1 SPRAY INTRANASAL Twice daily October 16, 2019 11:00pm December 24, 2019 10:02ambisacodyl 5 mg delayed release oral tablet (3 sources)Stimulant LaxativeStart: 31-59-9898pffq 10 mg by mouth once daily10 mg, Oral, DAILY, First dose (after last modification) on Tue02/23/24 at 0900, Until Discontinued, Do not crush or break., Post-opStart: 33-90-2171Jmbpg: 02-21-2024 End: 87-88-5371idki 5 mg by mouth once daily5 mg, Oral, DAILY, First dose on Tue02/21/24 at 1945, Until Discontinued, Do not crush or break., Post-opcarvedilol 3.125 mg oral tablet (20 sources)alpha-Adrenergic Saroj, beta-Adrenergic BlockerStart: 03-15-2024 End: 77-82-2180Dbabt: 02-16-2024 End: 23-12-0265Thcpi: 10-17-2019 End: 05-03-8427izSGPitdq (ANCEF) 2,000 mg in sterile water 20 mL IV syringe (1 source)Start: 02-21-2024 End: 42,000 mg, IntraVENous, EVERY 8 HOURS, 2 doses, First dose on Tue02/21/24 at 2000, Last dose on Tue02/22/24 at 0400, Antimicrobial Indications: Surgical Prophylaxis, Administer over 5 mins. Reconstitute 2 g vial with 20 mL Sterile Water. Withdraw entire contents., Post-opcefepime 2000 mg injection (16 sources)Cephalosporin AntibacterialStart: 07-17-2024 End: 65-92-7838umhgmkuqxc 500 mg oral capsule (20 sources)Cephalosporin AntibacterialStart: 04-11-2017 End: 41-44-5636pdjkdrxdhcrou 500 mg oral tablet (15 sources)Quinolone AntimicrobialStart: 08-29-2024 End: 75-79-4713wwnhmiljwar 300 mg oral capsule (20 sources)Lincosamide AntibacterialStart: 03-10-2024 End: 03-34-8746quvepnnnopgqpru hydrochloride 10 mg oral tablet (1 source)Muscle RelaxantStart: 14-23-6046rvhk 10 mg by mouth three times daily as jukihn81 mg, Oral, 3 TIMES DAILY PRN, Starting on Tue02/21/24 at 1918, Until Discontinued, Muscle spasms, Post-opdiclofenac sodium 0.01 mg/mg topical gel (20 sources)Nonsteroidal Anti-inflammatory DrugStart: 01-04-2020 End: 17-31-4602Puavw: 01-04-2020 End: 66-79-5636mkjmj 2 g topically three times dailyDiclofenac Sodium Discontinued 2 GM TOPICAL Three times daily January 04, 2020 12:00am January 09, 2022 2:10pmdigoxin 0.125 mg oral tablet (20 sources)Cardiac GlycosideStart: 10-17-2019 End: 21-75-8000fxbj 1 tablet by mouth every twenty-four hoursDigoxin 125 MCG 1 tablet Orally Once a day Activedocusate sodium 100 mg oral capsule (20 sources)Start: 11-06-2019 End: 92-46-4493Buvnx: 11-06-2019 End: 52-98-6993pagx 1 capsule by mouth once daily as neededDocusate Sodium 100 mg capsule Discontinued 100 MG PO Daily as needed June 06, 2023 12:00am Januar y 2024 11:13amdocusate sodium 50 mg / sennosides, fci 8.6 mg oral tablet (2 sources)Start: 02-21-2024 End: 02-43-5704ycbb 2 tablets by mouth twice daily2 tablet, Oral, 2 TIMES DAILY, First dose (after last modification) on Tue02/22/24 at 2100, Until D iscontinued, Post-opdoxycycline hyclate 100 mg oral tablet (20 sources)Tetracycline-class DrugStart: 07-12-2024 End: 50-22-9131Gopnr: 12-23-2023 End: 77-20-3520huxicjkor 1000 mg injection (3 sources)Penem AntibacterialStart: 12-18-2024 End: 81-31-2547srqkgcmnezw 3 mg oral tablet (20 sources)Start: 11-16-2021 End: 22-29-5321Xiiuf: 60-35-0968ejul 1 tablet by mouth every twenty-four hours Eszopiclone 3 MG 1 tablet immediately before bedtime Orally Once a day May, ActiveStart: 10-17-2019 End: 18-24-2458kdzazxsxlg 0.92 mg/ml / menthol 0.42 mg/ml / methyl salicylate 0.6 mg/ml / thymol 0.64 mg/ml mouthwash (1 source)Start: 89-26-4302kymx 15 mL by mouth three times daily as mL, Swish & Spit, 3 TIMES DAILY PRN, Starting on 02/25/24 at 0814, Until Discontinued, Dry Mouthfluticasone propionate 0.05 mg/actuat metered dose nasal spray (20 sources)CorticosteroidStart: 01-09-2022 End: 31-38-3712Ezguliayssw Propionate 50 mcg/actuation spray,suspension Discontinued 1 SPRAY NARES-BOTH Daily at bedtime as needed for Nasal Congestion January 09, 2022 2:10pm June 06, 2023 11:57amStart: 01-04-2020 End: 98-04-7598Epggs: 01-04-2020 End: 24-44-0623Dpvlsbwmhdc Propionate 50 mcg/actuation [place],Suspension Discontinued 1 SPRAY NARES-BOTH Twice daily January 04, 2020 12:00am January 09, 2022 2:10pmfolic acid 1 mg oral tablet (1 source)Start: 35-33-3764nchl 1 mg by mouth once daily1 mg, Oral, DAILY, First dose on Tue02/24/24 at 1300, Until Discontinuedfolic acid 2.5 mg / vitamin b12 1 mg / vitamin b6 25 mg oral tablet (20 sources)Vitamin W32Rvmfl: 01-04-2020 End: 36-07-9422Jqqwq: 01-04-2020 End: 97-43-0491wrku 1 tablet by mouth once dailyFolic Acid-Vit [...] Janny meredith Jenna: kellyinet overrideStart: 02-21-2024 End: 01-70-7856qgjf 0.25 mg by mouth once0.25 mg, IntraVENous, ONCE, 1 dose, On Tue02/21/24 at 0915, If oral and IV narcotics ordered, use oral first and only use IV if oral is ineffective or cannot take oral. Do Not give oral and IV within 1 hour of each other unless specifically ordered.hydrOXYzine pamoate 25 mg oral capsule (20 sources)AntihistamineStart: 11-06-2019 End: 78-64-0523Saviw: 11-06-2019 End: 29-22-9175Zuwpnek (20 sources)Start: 23-40-0766Ajiohhk Aug, 3 mLStart: 64-14-0458Efzvjyb Aug, 3 mLlactulose 667 mg/ml oral solution (20 sources)Osmotic LaxativeStart: 01-04-2020 End: 09-74-5340Kdnldgtxr Not-Takinglevothyroxine sodium 0.15 mg oral tablet (20 sources)l-ThyroxineStart: 41-73-0238Whrpckgnw 137 MCG 1 tablet every morning on an empty stomach Orally Once a day for 90 days Aug, ActiveStart: 10-17-2017 End: 33-90-7462Hxaqn: 04-07-2004 End: 79-68-5210pktj 1 tablet by mouth once daily in the morningLevothyroxine (Synthroid) 150 mcg tablet Discontinued 150 MCG PO Every morning June 06, 2023 12:00am September 21, 2023 9:53amlinezolid 600 mg oral tablet (10 sources)Oxazolidinone AntibacterialStart: 10-10-2024 End: 67-48-8731bvjxbskkgw 2.5 mg oral tablet (1 source)Angiotensin Converting Enzyme InhibitorStart: 23-71-2569injf 2.5 mg by mouth once daily2.5 mg, Oral, DAILY, First dose on 02/25/24 at 0900, Until Discontinued, Hold for SBPmagnesium hydroxide 80 mg/ml oral suspension (1 source)Start: 59-16-0522arcv 30 mL by mouth once daily as needed for dztawiswdlhr92 mL, Oral, DAILY PRN, Starting on 02/21/24 at 1918, Until Discontinued, Constipation, First line therapy for constipation., Post-op melatonin 5 mg oral tablet (20 sources)Start: 01-04-2020 End: 71-51-2414edxYCnauqf 5 mg oral tablet (20 sources)Thiazide-like DiureticStart: 03-10-2024 End: hr mirabegron 25 mg extended release oral tablet (20 sources)beta3-Adrenergic AgonistStart: 01-04-2020 End: 79-85-6705Szejr: 10-17-2019 End: 87-30-9874Nxduykovvsmi (Daily Multi-Vitamin) tablet (20 sources)Start: 06-06-2023 End: 65-92-5004qkcu 1 tablet by mouth once dailyMultivitamin (Daily Multi- Vitamin) tablet Discontinued 1 TAB PO Daily June 06, 2023 12:00am March 10, 2024 11:14amStart: 06-06-2023 End: 23-61-5991utff 1 tablet by mouth once dailyMultivitamin (Daily Multi- Vitamin) tablet Discontinued 1 TAB PO Daily June 05, 2023 11:00pm March 10, 2024 10:14amStart: 64-06-3742shpt 1 tablet by mouth once dailyMultivitamin (Daily Multi-Vitamin) tablet Active 1 TAB PO Daily June 06, 2023 12:00am mupirocin 0.02 mg/mg topical ointment (20 sources)RNA Synthetase Inhibitor AntibacterialStart: 06-06-2023 End: 53-93-5959Ohupk: 06-06-2023 End: 29-61-1582Dcibnqlpi Active 1 APPLIC TOPICAL Twice daily December 23, 2023 12:06pm 1 application Externally Twice a dayStart: 87-39-3649Zsdrowode 2 % 1 application Externally Twice a day Jan, Xggxlp78 hr oxybutynin chloride 10 mg extended release oral tablet (20 sources)Cholinergic Muscarinic AntagonistStart: 06-06-2023 End: 30-37-8291Uubnz: 01-04-2020 End: 95-64-7768Lellw: 01-04-2020 End: 97-33-6830yvvq 10 mg by mouth once daily at lunchOxybutynin Chloride Discontinued 10 MG PO Daily with lunch January 04, 2020 12:00am January 2:36pmStart: 10-17-2019 End: 09-13-6307pxwGXMYWQ hydrochloride 5 mg oral tablet (12 sources)Opioid AgonistStart: 10-10-2024 End: 34-96-8653Fegwh: 75-89-6651dwuOMYGBQ (ROXICODONE) immediate release tablet 5 mgStart: 02-21-2024 End: 92-33-7437majz 1 dose by mouth once5 mg, Oral, ONCE PRN, 1 dose, Starting on Tue02/21/24 at 1510, Until Tue02/21/24 at 1548, Pain Moderate (4-6), Pain Severe (7-10), PHASE II, PACU onlypolyethylene glycol 3350 65681 mg powder for oral solution (19 sources)Osmotic LaxativeStart: 07-17-2024 End: 21-19-7996Xkhrm: 02-21-2024 End: 65-23-382604 g, Oral, ONCE, 1 dose, On Tue02/24/24 at 1230, Stir and dissolve one packet of powder (17 g) inany 4 to 8 ounces of beverage (cold, hot or room temperature) then drinksacubitril 24 mg / valsartan 26 mg oral tablet (20 sources)Angiotensin 2 Receptor BlockerStart: 10-17-2019 End: 19-80-8534Ywuun: 10-17-2019 End: 08-26-0152pred 1 tablet by mouth twice dailySacubitril-Valsartan (Entresto) 24-26 mg Tablet Discontinued 1 TAB PO Twice daily 60 0 January 04, 2020 12:00am January 16, 2022 1:30pmENTRESTO 24 mg/26 mg 1 orally twice a day Ttvitl29 ml sodium chloride 9 mg/ml injection (8 sources)Start: 02-22-2024 End: 94-13-3971805 mL (5.79 mL/kg), IntraVENous, at 491.8 mL/hr, Administer over 61 Minutes, ONCE, On Tue02/22/24at 2044, For 1 doseStart: 72-21-93526-40 mL, IntraVENous, EVERY 12 HOURS SCHEDULED (2 [...] or Central Line = 20 mL/lumen, Post-opStart: 85-16-9286Ouqro: 02-21-2024 End: 45-49-0572TadfuZAQtkl, at 125 mL/hr, CONTINUOUS, Starting on Tue02/21/24 at 1945, Post-opStart: 83-62-8371qggy 20 mL intravenously every hourIntraVENous, at 5-250 [...] rate field of order., Post-opStart: 02-21-2024 End: 27-15-0801EfezqFECpth, at 5-250 mL/hr, PRN, if patient receiving [...] Reductase Inhibitor Antibacterial, Sulfonamide AntimicrobialStart: 12-23-2023 End: 13-83-5119Edusx: 12-23-2023 End: 77-68-7077xwcw 1 tablet by mouth twice dailySulfamethoxazole-Trimethoprim (Bactrim Ds) 800-160 mg tablet Discontinued 1 TAB PO Twice daily 20 0October 2023 12:00am February 13, 2024 10:23am Open wound of skin Other injury of unspecified body region, initial encounterStart: 01-09-2022 End: 99-49-2273Ynxbz: 01-07-2022 End: 96-68-6367leyi 1 tablet by mouth twice dailySulfamethoxazole-Trimethoprim (Bactrim Ds) 800-160 mg Tablet Discontinued 1 TAB PO Twice daily January 09, 2022 12:00am January 16, 2022 1:30pm started 01/08/22 for 7 daysStart: 12-21-2019 End: 26-84-1325Gdgix: 12-21-2019 End: 17-02-1494rmub 1 tablet by mouth every twelve hoursSulfamethoxazole- Trimethoprim (Bactrim Ds) 800-160 mg Tablet Discontinued 1 TAB PO Q12H December 21, 2019 12:00am December 25, 2019 1:37pmtamsulosin hydrochloride 0.4 mg oral capsule (20 sources)alpha-Adrenergic BlockerStart: 03-15-2024 End: 38-43-4281akqwbkob 100 mg oral tablet (1 source)Start: 74-95-4556hncf 100 mg by mouth once gzewo744 mg, Oral, DAILY, First dose on Tue02/24/24 at 1300, Until DiscontinuedtraZODone hydrochloride 50 mg oral tablet (20 sources)Serotonin Reuptake InhibitorStart: 01-09-2022 End: 24-00-2418Kvsdxudpvmgnj (20 sources)CorticosteroidStart: 02-89-4189Wmtgxrl -40 mg July, 40 mg vancomycin 1000 mg injection (16 sources)Glycopeptide AntibacterialStart: 07-17-2024 End: 09-18-2024 (18 sources)Start: 06-06-2023 End: 48-72-6155Yrwzn: 10-17-2019 End: 12-24-2019 Problems Active Problems Problem ClassificationProblemDateDocumented DateEpisodic/ChronicAcute cerebrovascular disease (20 sources)Intracranial hemorrhage; Translations: [Nontraumatic intracranial hemorrhage, unspecified]Onset: 917846-51-8039YrudyopLjcrnzt dysrhythmias (20 sources)Chronic atrial fibrillation; Translations: [Atrial fibrillation] Onset: 01-19-2021 Resolved: 20-72-3527QqjaxlzPkxxwmk dysrhythmias (20 sources)Bradycardia; Translations: [Bradycardia, unspecified]01-10-2022 EpisodicChronic kidney disease (1 source)Chronic kidney disease; Translations: [Chronic kidney disease, stage 3 unspecified]Onset: 21-23-8456Mfgyvcr ulcer of skin (14 sources)Pressure ulcer of sacral region, stage 2; Translations: [Pressure injury of coccygeal region, stage2]Onset: 885713-56-3965Auafimz Complication of device; implant or graft (20 sources)Urinary tract infectious disease; Translations: [Infection and inflammatory reaction due to indwelling urethral catheter, initial encounter] Onset: 373164-15-3555MyikmgduCbpbyriykb heart failure; nonhypertensive (20 sources)Heart failure; Translations: [Heart failure, unspecified]Onset: 08-31-2021 Resolved: 41-86-9971QdjnppeLkoaugts atherosclerosis and other heart disease (20 sources)Coronary atherosclerosis; Translations: [Coronary atherosclerosis of unspecified type of vessel, tulalip or graft]Onset: 909727-31-1596Ffwtvlh Disorders of lipid metabolism (20 sources)Hyperlipidemia; Translations: [Other and unspecified hyperlipidemia] Onset: 01-19-2021 Resolved: 38-04-3483DcgtjkkM Codes: Fall (20 sources)Unspecified fall, initial encounter; Translations: [Fall]Episodic Essential hypertension (20 sources)Benign essential hypertension; Translations: [Benign essential hypertension]Onset: 08-31-2021 Resolved: 21-51-3968ElbshtzVghvb of unknown origin (20 sources)Fever; Translations: [Fever, unspecified]Onset: 843664-17-0168 EpisodicFluid and electrolyte disorders (20 sources)Dehydration; Translations: [Dehydration]96-95-2218Jprobxii Genitourinary symptoms and ill-defined conditions (1 source)Urge incontinence; Translations: [URGE INCONTINENCE]Onset: 05-17-2022 ChronicGout and other crystal arthropathies (20 sources)Gout; Translations: [Gout, unspecified]Onset: 09-04-2021 Resolved: 54-75-9650KkeqxubTtqwnpkgjwf of prostate (20 sources)Benign prostatic hyperplasia; Translations: [Benign prostatic hyperplasia without lower urinary tract symptoms]Onset: 01-19-2021 Resolved: 34-35-9978XgpwjfvBxiachdyjjch injury (1 source)Traumatic subdural hemorrhage without loss of consciousness, initial encounter; Translations: [Traumatic subdural hemorrhage without loss of consciousness, initial encounter]Onset: 87-69-2393VdrydwusDlawtvv and fatigue (20 sources)Asthenia; Translations: [Weakness]Onset: EpisodicMycoses (3 sources)Candidiasis, unspecified; Translations: [Pain in toe]Episodic Neoplasms of unspecified nature or uncertain behavior (20 sources)Ependymoma ; 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, unspecified]43-45-0068SqgexzqXkitwor on above:1989Open wounds of extremities (1 source)Laceration without foreign body of left upper arm, initial encounter EpisodicOpen wounds of head; neck; and trunk (20 sources)Laceration - injury; Translations: [Laceration]73-55-7637Ldlrvyuv Osteoarthritis (20 sources)Osteoarthritis of left knee joint; 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, left knee]ChronicOsteoporosis (7 sources)Senile osteoporosis; Translations: [Age-related osteoporosis without current pathological fracture]Onset: 358171-83-8369IgydanyTjrac acquired deformities (20 sources)Acquired spondylolisthesis; Translations: [Spondylolysis, lumbar region]EpisodicOther acquired deformities (20 sources)Spondylolysis; Translations: [Spondylolysis, lumbar region] 32-78-2940UpxhartjQbofv acquired deformities (9 sources)Spondylolysis, lumbar region; Translations: [Acquired spondylolisthesis]56-60-8155VufcnvesZsozt aftercare (20 sources)Drug therapy finding; Translations: [Long-term (current) use of other medications]26-91-9822JtizedmuXdkdy aftercare (20 sources)Long-term current use of anticoagulant; Translations: [Long-term (current) use of anticoagulants]Onset: 246656-09-5886GndlzwhgPxkdw and unspecified benign neoplasm (20 sources)Spinal meningioma; Translations: [Benign neoplasm of spinal meninges]EpisodicOther circulatory disease (7 sources)H/O: atrial fibrillation; Translations: [Personal history of other diseases of circulatory system]EpisodicOther circulatory disease (3 sources)History of sick sinus syndrome; Translations: [Personal history of other diseases of circulatory system]EpisodicOther circulatory disease (1 source)Abnormal foot pulse; Translations: [Other specified symptoms and signs involving the circulatory and respiratory systems]70-49-3143JxkvkqmzXjsqx connective tissue disease (20 sources)History of repair of hip joint; Translations: [Presence of left artificial hip joint]ChronicOther connective tissue disease (20 sources)Artificial knee joint present; Translations: [Presence of unspecified artificial knee joint]ChronicOther connective tissue disease (20 sources)History of total knee arthroplasty; Translations: [Presence of left artificial knee joint]09-17-8363HpihnplVlvey connective tissue disease (20 sources)Synovial cyst of popliteal space; Translations: [Synovial cyst of popliteal space [[place]], left knee]EpisodicOther connective tissue disease (20 sources)Neuropathic pain; Translations: [Neuralgia and neuritis, unspecified]EpisodicOther connective tissue disease (20 sources)Recurrent falls ; Translations: [Repeated falls]00-70-2242Suirsewa Other connective tissue disease (4 sources)Repeated falls; Translations: [History of fall]Onset: 12-12-2024 40-42-2910ZcydzsjzGttvn connective tissue disease (1 source)Muscle weakness (generalized)EpisodicOther [...] (20 sources)Vascular insufficiency; Translations: [Venous insufficiency (chronic) (peripheral)]61-53-6951FewqrdgmGirou diseases of veins and lymphatics (3 sources)Venous insufficiency (chronic) (peripheral); Translations: [Venous (peripheral) insufficiency, unspecified]44-87-7151BfcytmezDhxlr ear and sense organ disorders (13 sources)Tinnitus; Translations: [Tinnitus, unspecified ear]EpisodicOther fractures (12 sources)Compression fracture of lumbar spine; Translations: [Wedge compression fracture of first lumbar vertebra, initial encounter for closed fracture]07-65-5567OapwccdxEsroh fractures (1 source)Wedge compression fracture of first lumbar vertebra, initial encounter for closed fracture; Translations: [Wedge compression fracture of first lumbar vertebra, initial encounter for closed fracture]Onset: 66-35-8796HlotreybUnaij gastrointestinal disorders (20 sources)Constipation; Translations: [Constipation, unspecified]01-09-2022 EpisodicOther gastrointestinal disorders (3 sources)Constipation, unspecified; Translations: [Constipation, unspecified] 97-72-8383FytcwawnLnzfe hematologic conditions (5 sources)Raised cardiac enzyme or marker; Translations: [Other specified abnormalities of plasma proteins]67-80-9870MbnpiinfGoddk hematologic conditions (4 sources)Other specified abnormalities of plasma proteins; Translations: [Other abnormal blood chemistry]39-12-4809IieaexwrRuxhv injuries and conditions due to external causes (20 sources)Open wound of skin; Translations: [Other injury of unspecified body region, initial encounter]03-36-7722DfbeaojfHyhme lower respiratory disease (20 sources)Hypoxemia; Translations: [Hypoxemia]03-71-7349FblgfrzdTvmcf lower respiratory disease (20 sources)Hypoxia; Translations: [Hypoxemia]25-89-2997SugjballNfhac nervous system disorders (20 sources)Chronic pain; Translations: [Other chronic pain]ChronicOther nervous system disorders (1 source)Other chronic painOnset: 01-19-2021 Resolved: 14-48-7495RhjvjtwRabso nervous system disorders (20 sources)Difficulty walking; Translations: [Difficulty in walking, 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]17-99-2174TiyiivkMjcxa nervous system disorders (3 sources)Difficulty in walking, 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; Translations: [Difficulty in walking]68-79-7962IsasxxtXqxek nervous system disorders (20 sources)Muscle weakness; Translations: [Other specified myopathies] 33-68-9112YrtwthnCbcwl nervous system disorders (3 sources)Other specified myopathies; Translations: [Myopathy, unspecified] 37-15-8453WfnvecyTbaiz nervous system disorders (1 source)Metabolic encephalopathy; Translations: [Metabolic encephalopathy] Onset: 70-94-7492CietpneSjcnn non-traumatic joint disorders (20 sources)Multiple joint pain; Translations: [Pain in unspecified joint] EpisodicOther non-traumatic joint disorders (20 sources)Ankle pain; Translations: [Pain in left ankle and joints of left foot]16-88-1818JbbhskaxPpnep nutritional; endocrine; and metabolic disorders (3 sources)Body mass index 30+ - obesity; Translations: [Body Mass Index 33.0- 33.9, adult]Onset: 550144-54-3185XeymyswZwxzr nutritional; endocrine; and metabolic disorders (20 sources)Obesity; Translations: [Obesity, unspecified]ChronicOther nutritional; endocrine; and metabolic disorders (2 sources)Body mass index (BMI) 30.0-30.9, adult; Translations: [Body mass index (BMI) 30.0-30.9, adult]Onset: 24-58-0641PmrbfblZurue nutritional; endocrine; and metabolic disorders (1 source)Abnormal weight lossEpisodicOther nutritional; endocrine; and metabolic disorders (3 sources)Overweight in adulthood with body mass index of 25 or more but less than 30; Translations: [Overweight]EpisodicOther screening for suspected conditions (not mental disorders or infectious disease) (20 sources)Echocardiogram abnormal; Translations: [Nonspecific (abnormal) findings on radiological and other examination of other intrathoracic organs] Onset: 01-19-2021 Resolved: 59-96-6843LugynswqLgjck skin disorders (20 sources)Abnormality of nail of toe; Translations: [Other nail disorders] EpisodicOther skin disorders (1 source)Actinic keratosisEpisodicOther upper respiratory infections (20 sources)Sinusitis; Translations: [Chronic sinusitis, unspecified]Chronic Pratima-; endo-; and myocarditis; cardiomyopathy (except that caused by tuberculosis or sexually transmitted disease) (20 sources)Cardiomyopathy; Translations: [Other primary cardiomyopathies]Onset: 02-16-2023 Resolved: [id number]; pneumothorax; pulmonary collapse (20 sources)Pleural effusion; Translations: [Pleural effusion, 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]27-57-8486UkxpyqwjDtgavyzc codes; unclassified (20 sources)Sleep apnea; Translations: [Sleep apnea, unspecified]01-09-2022 ChronicComment on above:does not use equipmentResidual codes; unclassified (3 sources)Sleep apnea, unspecified; Translations: [Unspecified sleep apnea] 24-99-3353CakmizmEkjugezg codes; unclassified (7 sources)Swelling - edema - symptom; Translations: [Edema]EpisodicResidual codes; unclassified (20 sources)Edema; Translations: [Edema]Onset: 157781-28-2118Fwjtnyet Residual codes; unclassified (20 sources)Insomnia; Translations: [Insomnia, unspecified]20-57-8941Xyuwfapi Residual codes; unclassified (8 sources)Insomnia, unspecifiedOnset: 03-05-2021 Resolved: 01-10-0745WpondwdcVpupegjy codes; unclassified (20 sources)Activity of daily living (ADL) alteration; Translations: [Other specified health status]42-07-4715QqcmzoxySbaguhzo codes; unclassified (20 sources)Edema, generalized; Translations: [Generalized edema]12-21-2019 EpisodicResidual codes; unclassified (20 sources)Patient encounter status; Translations: [Encounter for prophylactic measures, unspecified]16-03-2138LzjfcpoiOuwscirv codes; unclassified (20 sources)Altered mental status; Translations: [Altered mental status, unspecified]79-27-1565BpskoxhzXwwxzbno codes; unclassified (1 source)Localized edemaEpisodicResidual codes; unclassified (3 sources)Altered mental status, unspecified; Translations: [Altered mental status]62-22-5837VgovggbvPgtxhpfp codes; unclassified (3 sources)Generalized edema; Translations: [Edema]13-95-6486XyyjofydEriyijvo codes; unclassified (7 sources)Other specified health status; Translations: [Other specified conditions influencing health status]62-14-5958IyjbgbhcLagvidfo codes; unclassified (1 source)Localized edema; Translations: [Localized edema]26-44-6347Hvpdimaw Residual codes; unclassified (1 source)Other specified postprocedural states; Translations: [Other specified postprocedural states]Onset: 06-28-4453PblwvkjqJnvynmuqjgw failure; insufficiency; arrest (adult) (20 sources)Acute respiratory failure; Translations: [Acute respiratory failure with hypoxia]86-15-8517DxvytfyqJzlwumkycsx; intervertebral disc disorders; other back problems (20 sources)Degeneration of lumbar intervertebral disc; Translations: [Other intervertebral disc degeneration, lumbar region]Onset: 62-69-5995Wercfgt Spondylosis; intervertebral disc disorders; other back problems (20 sources)Chronic low back pain; Translations: [Acute exacerbation of chronic low back pain]Onset: 613241-73-5909HfczhgqjWycsegjmxyv injury; contusion (20 sources)Abrasion, left knee, initial encounter; Translations: [Abrasion of left upper arm, initial encounter]Onset: 86-43-2996OiirtmgsAkjvkjw disorders (20 sources)Hypothyroidism; Translations: [Hypothyroidism, unspecified]Onset: 01-19-2021 Resolved: 66-70-4679CifgfhvLfdhbeecndps (3 sources)LOW BACK PAIN, UNSPECIFIED; Translations: [LOW BACK PAIN, UNSPECIFIED]Onset: 18-53-8121Nposqwlpgfye (1 source)Patient encounter wgejtx59-15-7241Rbuchonkulpv (1 source)Longstanding persistent atrial fibrillation; Translations: [Longstanding persistent atrial fibrillation]Onset: 71-66-7308Xjddklttoztk (12 sources)A [facility] screening has identified you as FRAIL [...] Ways to Beat the Frailty Risk [email or web address]-twdblc-ljql- lskd-pw-hsjx-the-fra nrnh-[id number]pc (3 sources)Chronic atrial fibrillation, unspecified; Translations: [Chronic atrial fibrillation, unspecified (Multi)]Onset: 43-11-8124Wmqfgzckscsh (14 sources)For a brain CT. This must be done prior to the appointment with Dr. Stovall.Unclassified (7 sources)Please call to schedule follow up appointment following discharge from halfway facility.Unclassified (7 sources)Please have the Brain CT done 1 day prior to this appointment. This appointment is scheduled with Dr. Stovall's Nurse Practitioner.Unclassified (2 sources)Please call to schedule an appointment for right heel stage 3 pressure injury.Varicose veins of lower extremity (20 sources)Varicose veins of lower extremity; Translations: [Varicose veins of left lower extremity with othercomplications]32-97-5703BdspgqbfOdlql infection (20 sources)Disease caused by 2019-nCoV; Translations: [COVID-19]03-10-2024 Episodic Past or Other Problems Problem ClassificationProblemDateDocumented DateEpisodic/ChronicAcute and unspecified renal failure (20 sources)Acute renal failure syndrome; Translations: [Acute kidney failure, unspecified]Onset: 799857-55-6568AonnggacMibiyttsr infection; unspecified site (20 sources)Bacteremia; Translations: [Bacteremia due to Pseudomonas]Onset: 109867-59-2699QqpdvzbsVhusxwpdxbpts of surgical procedures or medical care (1 source)Disruption of external operation (surgical) wound, 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, initial encounter; Translations: [Disruption of external operation (surgical) wound, 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, initial encounter]Onset: 06-06-2024 EpisodicGenitourinary symptoms and ill-defined conditions (20 sources)Retention of urine; Translations: [Retention of urine, unspecified] Onset: 031618-81-4273VtzhnhhuSaass aftercare (2 sources)group home (current) use of anticoagulants; Translations: [group home (current) use of anticoagulants]Onset: 26-74-8600BnmczrwxXcmpf aftercare (1 source)Encounter for other orthopedic aftercare; Translations: [Encounter for other orthopedic aftercare]Onset: 33-52-4426NjwwrhdyVtfbc connective tissue disease (5 sources)Muscle wasting and atrophy, 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, unspecified site; Translations: [MUSCLE WASTING ATROPHY NEC UNS SITE]Onset: 08-17-2021 EpisodicOther lower respiratory disease (7 sources)Hypoxemia; Translations: [Hypoxemia]Onset: 452616-19-4567 EpisodicScreening and history of mental health and substance abuse codes (20 sources)Ex-smoker; Translations: [Personal history of tobacco use]Onset: 507361-80-0736EtargkghUhoyqdy on above:Quit smoking in 1979;Septicemia (except in labor) (20 sources)Sepsis; Translations: [Sepsis, unspecified organism]Onset: 698556-77-3581KuqckqeuComl and subcutaneous tissue infections (20 sources)Cellulitis, unspecified; Translations: [Cellulitis]Onset: 07-12-2024 93-22-0736UyahcwpbOfswmozdehgd (1 source)LOW BACK PAIN, UNSPECIFIED; Translations: [LOW BACK PAIN, UNSPECIFIED] Onset: 07-23-2737Vpyyiunrymhz (1 source)Cough, unspecified type R05.9Unclassified (2 sources)Onset: 083267-16-0693Fxqgqnw tract infections (20 sources)Urinary tract infection, site not specified; Translations: [Urinary tract infectious disease]Onset: 11-22-9804Rugenbme Results Test NameValueInterpretationReference RangeFacilityBasophils Auto (Bld) [#/Vol] Ordered By: Sha Pepe on 25-74-8667Xlxrounmm (Bld) [#/Vol]0.1 10 3/uL0.0-0.1 [facility] HospitalBasophils/100 WBC Auto (Bld)Ordered By: Sha Pepe on 90-76-5532Nxwfcjtqs/100 WBC (Bld)0.8 %0.2-2.0[facility] HospitalEosinophils/100 WBC Auto (Bld)Ordered By: Sha Pepe on 84-37-1486Scgmorvdkyh/100 WBC (Bld)2.7 %0.9-7.0[facility] Erythrocyte distribution width Auto (RBC) [Ratio]Ordered By: Sha Pepe on 65-95-8555Gqpjtpnbawf distribution width (RBC) [Ratio]16.9 %High11.0-15.0 [facility] HospitalGlobulin Calc (S) [Mass/Vol]Ordered By: Sha Pepe on 67-98-0569Wnxhqxxc (S) [Mass/Vol]3.7 g/dLSuburban Community Hospital & Brentwood HospitalGlomerular filtration rate (GFR) estimation in non- AmericanOrdered By: Sha Pepe on 42-62-8397YNV/1.73 sq M.predicted among non-blacks MDRD (S/P/Bld) [Vol rate/Area]28 mL/min/{1.73_m2}Low>=60 mL/min/1.73m 2FMercy Health – The Jewish HospitalHematocrit Auto (Bld) [Volume fraction]Ordered By: Sha Pepe on 35-66-2277Jakxatqyui (Bld) [Volume fraction]26.0 %Low42.0-54.0 [facility] HospitalHemoglobin [Mass/volume] in BloodOrdered By: Sha Pepe on 23-20-3127Cnsnkhnrcd (Bld) [Mass/Vol]8.3 g/dLLow14.0-18.0 [facility] HospitalIron binding capacity [Mass/volume] in Serum or PlasmaOrdered By: Sha Pepe on 59-99-9806Xett binding capacity [Mass/Vol] 177.0 ug/zIMyf332.0-450.0[facility] HospitalIron saturation [Mass Fraction] in Serum or PlasmaOrdered By: Sha Pepe on 21-46-5078Qwkl saturation [Mass fraction]6.8 %[facility] HospitalLeukocytes [#/volume] corrected for nucleated erythrocytes in Blood by Automated coun Ordered By: Sha Pepe on 70-82-7356JRG corrected for nucl RBC Auto (Bld) [#/Vol]7.1 10 3/uL4.0-11.0[facility] HospitalLymphocytes Auto (Bld) [#/Vol]Ordered By: Sha Pepe on 59-53-7622Sluxqdkfvtw (Bld) [#/Vol]1.0 10 3/uLLow1.2-3.8[facility] HospitalLymphocytes/100 WBC Auto (Bld)Ordered By: Sha Pepe on 96-21-4932Jejqchzillf/100 WBC (Bld)14.0 %Low 20.5-60.0[facility] HospitalH Auto (RBC) [Entitic mass]Ordered By: Sha Pepe on 56-48-8486MIH (RBC) [Entitic mass]28.3 pg25.9-34.0[facility] HospitalMCHC Auto (RBC) [Mass/Vol]Ordered By: Sha Pepe on 90-79-4631BMIQ (RBC) [Mass/Vol]31.7 g/dL29.9-35.2FMercy Health – The Jewish HospitalMCV Auto (RBC) [Entitic vol]Ordered By: Sha Pepe on 10-82-1508RDY (RBC) [Entitic vol]89.3 fL80.0-94.0[facility] HospitalMonocytes Auto (Bld) [#/Vol]Ordered By: Sha Pepe on 88-40-8543Prwbtifuf (Bld) [#/Vol] 0.5 10 3/uL0.3-0.8[facility] HospitalMonocytes/100 WBC Auto (Bld) Ordered By: Sha Pepe on 57-41-4106Rcegijhiq/100 WBC (Bld)6.8 %1.7-12.0 [facility] HospitalNeutrophils Auto (Bld) [#/Vol]Ordered By: Sha Pepe on 05-94-7402Eyxcskjwogf (Bld) [#/Vol]5.3 10 3/uL1.4-6.5FMercy Health – The Jewish HospitalNeutrophils/100 WBC Auto (Bld)Ordered By: Sha Pepe on 95-28-5098Neqszpkrnja/100 WBC (Bld)75.6 %High43.0-75.0[facility] HospitalNo Panel InformationOrdered By: Sha Pepe on 05-74-285670.1 [facility]41.0 mg/dLHigh7.0-18.0[facility]8.6 mg/dL8.5-10.1FMercy Health – The Jewish Hospital108 mmol/LHigh 98-107[facility]25.0 mmol/L21.0-32.0[facility]2.26 mg/dLHigh0.70-1.30[facility]34Low>=60 mL/min/1.73m 2FMercy Health – The Jewish Hospital107 mg/zNCduh38-394HjmicgvciSuburban Community Hospital & [facility]4.1 mmol/L3.5-5.1FMercy Health – The Jewish Hospital141 mmol/T144-460OuxcbbsqoSuburban [facility] Hospital & [facility]9.00 ng/mL8.60-58.90[facility]293.0 ng/mL26.0-388.0[facility] 10.864 u[iU]/mLHigh0.358-3.740[facility]2.4 mg/dL1.8-2.4 [facility]12.0 ug/dLLow65.0-175.0[facility]2.4 g/dLLow3.4-5.0[facility]0.2 10 3/uL 0.0-0.7FMercy Health – The Jewish Hospital96 U/O97-368WafgdupifSuburban [facility] & [facility]16 U/V22-01DjbspermrSuburban [facility] Hospital & [facility]17 U/G59-32NlkuousbrSuburban [facility] Hospital & [facility]0.01 10 3/uL0.00-0.03[facility]0.1 %0.0-0.5 [facility]0.5 mg/dL0.2-1.0[facility]6.1 g/dLLow6.4-8.2FMercy Health – The Jewish HospitalPlatelet mean volume Auto (Bld) [Entitic vol]Ordered By: Sha Pepe on 73-29-5828Epaoryfj mean volume (Bld) [Entitic vol]9.7 fL9.5-13.5FMercy Health – The Jewish Hospital Platelets Auto (Bld) [#/Vol]Ordered By: Sha Pepe on 47-04-6345Dstoloeek (Bld) [#/Vol]216 10 3/mP042-056CjadgbethSuburban Community Hospital & Brentwood HospitalRBC Auto (Bld) [#/Vol]Ordered By: Sha Pepe on 26-58-4444DZM (Bld) [#/Vol]2.72 10 6/uLLow 4.70-6.10St. Francis Hospitalerum or plasma albumin/globulin mass ratioOrdered By: Sha Pepe on 08-42-7815Kwitzpz/Globulin [Mass ratio]0.6 {ratio}St. Francis Hospitalerum or plasma anion gap determination Ordered By: Sha Pepe on 02-73-3396Aqgze gap [Moles/Vol]12.1 mmol/LFMercy Health – The Jewish HospitalBasophils Auto (Bld) [#/Vol]Ordered By: Clarence Schroeder on 09-86-7598Xsmjxacrf (Bld) [#/Vol]0.1 10 3/uL0.0-0.1FMercy Health – The Jewish HospitalBasophils/100 WBC Auto (Bld)Ordered By: Clarence Schroeder on 12-30-2024 Basophils/100 WBC (Bld)0.6 %0.2-2.0[facility] Eosinophils/100 WBC Auto (Bld)Ordered By: Clarence Schroeder on 12-30-2024 Eosinophils/100 WBC (Bld)1.9 %0.9-7.0[facility] Erythrocyte distribution width Auto (RBC) [Ratio]Ordered By: Clarence Schroeder on 20-53-2042Bwtbvrsmcbl distribution width (RBC) [Ratio]16.9 %High11.0-15.0 [facility] HospitalGlomerular filtration rate (GFR) estimation in non- AmericanOrdered By: Clarence Schroeder on 51-76-3596RHB/1.73 sq M.predicted among non-blacks MDRD (S/P/Bld) [Vol rate/Area]23 mL/min/{1.73_m2}Low>=60 mL/min/1.73m 2FMercy Health – The Jewish HospitalHematocrit Auto (Bld) [Volume fraction]Ordered By: Clarence Schroeder on 50-20-6085Dtauajkokw (Bld) [Volume fraction] 24.0 %Low42.0-54.0[facility] HospitalHemoglobin [Mass/volume] in BloodOrdered By: Clarence Schroeder on 76-62-4330Iayngfwazx (Bld) [Mass/Vol]7.6 g/dLLow 14.0-18.0[facility] HospitalLeukocytes [#/volume] corrected for nucleated erythrocytes in Blood by Automated counOrdered By: Clarence Schroeder on 91-95-5517NRK corrected for nucl RBC Auto (Bld) [#/Vol]11.9 10 3/uLHigh4.0-11.0 [facility] HospitalLymphocytes Auto (Bld) [#/Vol]Ordered By: Clarence Schroeder on 31-82-7248Znvsrxghiep (Bld) [#/Vol]1.2 10 3/uL1.2-3.8[facility] HospitalLymphocytes/100 WBC Auto (Bld)Ordered By: Clarence Schroeder on 93-51-2038Yzvwefxofck/100 WBC (Bld)10.4 %Low20.5-60.0[facility] HospitalMCH Auto (RBC) [Entitic mass]Ordered By: Clarence Schroeder on 62-11-4608RSQ (RBC) [Entitic mass]28.8 pg25.9-34.0[facility] HospitalMCHC Auto (RBC) [Mass/Vol]Ordered By: Clarence Schroeder on 08-67-9796JOGB (RBC) [Mass/Vol]31.7 g/dL29.9-35.2FMercy Health – The Jewish HospitalMCV Auto (RBC) [Entitic vol] Ordered By: Clarence Schroeder on 93-46-1227MZO (RBC) [Entitic vol]90.9 fL80.0-94.0 [facility] HospitalMonocytes Auto (Bld) [#/Vol]Ordered By: Clarence Schroeder on 54-38-9792Qzotmtmds (Bld) [#/Vol]0.8 10 3/uL0.3-0.8[facility] HospitalMonocytes/100 WBC Auto (Bld)Ordered By: Clarence Schroeder on 12-30-2024 Monocytes/100 WBC (Bld)6.9 %1.7-12.0[facility] HospitalNeutrophils Auto (Bld) [#/Vol]Ordered By: Clarence Schroeder on 85-22-8861Fhjdiqdcoil (Bld) [#/Vol]9.5 10 3/uLHigh1.4-6.5FMercy Health – The Jewish HospitalNeutrophils/100 WBC Auto (Bld)Ordered By: Clarence Newsometon on 10-14-9530Ceiycowiuer/100 WBC (Bld)79.9 %High43.0-75.0[facility] HospitalNo Panel InformationOrdered By: Clarence Alexandre on 18-57-5645SGD-[facility] HospitalNONE SEEN #/LPFNONE/RARESuburban Community Hospital & Brentwood HospitalNone Seen #/HPFNone [facility] DaytonMALL #/HPFAbnormalENCOMPASS HEALTH VALLEY OF THE SUN REHABILITATION HOSPITALE [facility] HospitalNegativeNEG/TRACESt. Francis HospitalMALLAbnormalNEGATIVE [facility] HospitalCLEARCLEARSub[facility] & [facility] HospitalLT. YELLOWYELLOWSuburban Community Hospital & [facility] HospitalMODERATEAbnormalNEGATIVESuburban [facility] & [facility] HospitalNONE SEENTuscarawas Hospital PositiveAbnormalNEGATIVESub[facility]6.05.0-9.0[facility]2-5 #/HPFAbnormal0-2FMercy Health – The Jewish Hospital <=1.444Jvpavjbz5.005-1.025[facility]0.2 EU/dL0.2-1.0 [facility]5-10 #/HPFAbnormalNONE [facility]1.5 mmol/L0.4-2.0[facility]122.3 pg/mL Critically high4.0-76.1FMercy Health – The Jewish Hospital4924.0 pg/mLCritically high<=1800.0[facility]16.5FMercy Health – The [facility] Hospital44.0 mg/dLHigh7.0-18.0[facility]0.2 10 3/uL0.0-0.7 [facility]9.5 mg/dL8.5-10.1FMercy Health – The Jewish Hospital97 mmol/THwb06-385ZvaakfxxuSuburban Community Hospital & [facility]24.2 mmol/L21.0-32.0 [facility]2.66 mg/dLHigh0.70-1.30[facility]0.04 10 3/uLHigh0.00-0.03[facility]28Low >=60 mL/min/1.73m 2FMercy Health – The Jewish Hospital0.3 %0.0-0.5FMercy Health – The Jewish Hospital100 mg/fO96-979XgfdklxxbSuburban Community Hospital & [facility] Hospital4.7 mmol/L3.5-5.1FMercy Health – The Jewish Hospital131 mmol/YHdf320-277YxjfaftdrSuburban Community Hospital & Brentwood HospitalPlatelet mean volume Auto (Bld) [Entitic vol]Ordered By: Clarence Schroeder on 75-83-1609Ztrzcami mean volume (Bld) [Entitic vol]9.5 fL9.5-13.5 [facility] HospitalPlatelets Auto (Bld) [#/Vol]Ordered By: Clarence Schroeder on 93-30-3027Hrltzvolv (Bld) [#/Vol]294 10 3/pY238-199AvmnkrqvtSuburban Community Hospital & Brentwood HospitalRBC Auto (Bld) [#/Vol]Ordered By: Clarence Schroeder on 74-65-0776MBI (Bld) [#/Vol]2.64 10 6/uLLow4.70-6.10St. Francis Hospitalerum or plasma anion gap determinationOrdered By: Clarence Schroeder on 60-22-3005Iyyxa gap [Moles/Vol]14.5 mmol/LFMercy Health – The Jewish HospitalUrine Cultureon 33-94-8189Oevekcli identified Cx Nom (U)NormalThe [facility] Comment on above:Performed By: #### CUU ####[facility] [address] [place] [address] USAYeast detection in urine sediment by light microscopyOrdered By: Clarence Schroeder on 90-71-5294Pejps LM Ql (Urine sed)SEEN AbnormalNONE SEENSuburban Community Hospital & Brentwood HospitalBasophils Auto (Bld) [#/Vol] Ordered By: Cristy Prince ([place]) on 52-00-4041Vyookdszn (Bld) [#/Vol]0.1 10 3/uL0.0-0.1FMercy Health – The Jewish HospitalBasophils/100 WBC Auto (Bld)Ordered By: (Maki) Cristyvanita Livingstonon on 14-34-9026Bkqlseadk/100 WBC (Bld)0.9 %0.2-2.0 [facility] HospitalEosinophils/100 WBC Auto (Bld)Ordered By: (Maki) Cristyvanita Prince on 52-83-4612Likanwxcvmq/100 WBC (Bld)2.8 %0.9-7.0 [facility] HospitalErythrocyte distribution width Auto (RBC) [Ratio]Ordered By: (Maki) Cristy Niki on 44-59-7325Wxjkejlmkgf distribution width (RBC) [Ratio]16.9 %High11.0-15.0[facility] HospitalGlobulin Calc (S) [Mass/Vol]Ordered By: (Maki) Cristy Niki on 85-21-6267Wwbovsxv (S) [Mass/Vol]4.2 g/dLSuburban Community Hospital & Brentwood HospitalGlomerular filtration rate (GFR) estimation in non- AmericanOrdered By: (Maki) Cristyvanita Livingstonon on 22-21-2807HBC/1.73 sq M.predicted among non-blacks MDRD (S/P/Bld) [Vol rate/Area]51 mL/min/{1.73_m2}Low>=60 mL/min/1.73m 2FMercy Health – The Jewish HospitalHematocrit Auto (Bld) [Volume fraction]Ordered By: (Maki) Cristy Niki on 24-08-2742Tvpttjmeap (Bld) [Volume fraction]27.1 %Low42.0-54.0[facility] HospitalHemoglobin [Mass/volume] in BloodOrdered By: (Maki) Cristy Niki on 59-95-0442Hwbmleabaa (Bld) [Mass/Vol]8.7 g/dLLow14.0-18.0 [facility] HospitalLaboratory - Chemistry and Chemistry - challengeOrdered By: (Maki) Cristy Niki on 94-12-1647Yqfxftxfw Ql (U) NegativeNEGATIVESuburban Community Hospital & Brentwood HospitalGlucose (U) [Mass/Vol]Negative NEGATIVESuburban Community Hospital & Brentwood HospitalKetones Ql (U)NegativeNEGATIVESuburban Community Hospital & Brentwood HospitalpH (U)5.5 [pH]5.0-9.0[facility] Specific gravity (U) [Rel density]<=1.955Vwvzmuha2.005-1.025[facility] HospitalUrobilinogen Qn (U)0.2 {Raghu'U}/dL0.2-1.0[facility] HospitalAlbumin [Mass/Vol]2.7 g/dLLow3.4-5.0[facility] HospitalALP [Catalytic activity/Vol]143 U/JWtzz50-445QfznodklgSuburban Community Hospital & Brentwood HospitalALT [Catalytic activity/Vol]30 U/J46-36QshelskxbSuburban [facility] AST [Catalytic activity/Vol]42 U/ZJbak27-09VvnkvtlusSuburban [facility] Bilirubin [Mass/Vol]0.5 mg/dL0.2-1.0[facility] HospitalCalcium [Mass/Vol]8.9 mg/dL8.5-10.1FMercy Health – The Jewish HospitalChloride [Moles/Vol] 97 mmol/CLff03-227AdplyytlgSuburban Community Hospital & Brentwood HospitalCO2 [Moles/Vol]24.8 mmol/L 21.0-32.0[facility] HospitalCreatinine [Mass/Vol]1.33 mg/dLHigh 0.70-1.30[facility] HospitalGFR/1.73 sq M.predicted MDRD (S/P/Bld) [Vol rate/Area]mL/min/{1.73_m2}>=60 mL/min/1.73m 2FMercy Health – The Jewish HospitalGlucose [Mass/Vol]92 mg/yB78-848JdlfgkkwfSuburban Community Hospital & Brentwood HospitalPotassium [Moles/Vol]5.1 mmol/L3.5-5.1FMercy Health – The Jewish HospitalProtein [Mass/Vol] 6.9 g/dL6.4-8.2FKettering Memorial Hospitalodium [Moles/Vol]131 mmol/LLow 136-145[facility] HospitalUrea nitrogen [Mass/Vol]24.0 mg/dLHigh 7.0-18.0[facility] HospitalUrea nitrogen/Creatinine [Mass ratio] 18.0 mg/mgSuburban Community Hospital & Brentwood HospitalLaboratory - Hematology and Cell countsOrdered By: Cristy Prince ([place]) on 60-88-9921Vmefmypy granulocytes/100 WBC (Bld)0.5 %0.0-0.5FMercy Health – The Jewish HospitalLaboratory - Specimen informationOrdered By: Cristy Prince ([place]) on 94-76-7072Eugsbynbgw (U)SL CLOUDYCLEARFMercy Health – The Jewish HospitalColor (U)LT. YELLOWYELLOWSuburban Community Hospital & Brentwood HospitalLaboratory - UrinalysisOrdered By: (Glynn) Cristy Prince on 37-51-6677Wxocehuay esterase Test strip Ql (U)SMALLAbnormalNEGATIVESuburban Community Hospital & Brentwood HospitalMucus Ql (Urine sed)NONE SEENNONE SEENSuburban [facility] HospitalNitrite Ql (U)NegativeNEGATIVESuburban [facility] Protein Ql (U)NegativeNEG/TRACESuburban [facility] & [facility] HospitalLeukocytes [#/volume] corrected for nucleated erythrocytes in Blood by Automated coun Ordered By: (Glynn) Cristy Prince on 99-07-7729LES corrected for nucl RBC Auto (Bld) [#/Vol]8.1 10 3/uL4.0-11.0[facility] HospitalLymphocytes Auto (Bld) [#/Vol]Ordered By: (Glynn) Cristy Prince on 75-42-3620Scjolctcust (Bld) [#/Vol]1.2 10 3/uL1.2-3.8[facility] HospitalLymphocytes/100 WBC Auto (Bld)Ordered By: (Glynn) Cristy Prince on 80-19-1345Qeewjawrsba/100 WBC (Bld)14.4 %Low20.5-60.0[facility] Auto (RBC) [Entitic mass]Ordered By: (Glynn) Cristy Prince on 83-30-4115IKG (RBC) [Entitic mass]28.9 pg25.9-34.0[facility] Auto (RBC) [Mass/Vol]Ordered By: (Monisha Prince on 93-41-7676TUYF (RBC) [Mass/Vol] 32.1 g/dL29.9-35.2FMercy Health – The Jewish HospitalMCV Auto (RBC) [Entitic vol] Ordered By: (Glynn) Cristy Prince on 42-95-7664ELF (RBC) [Entitic vol]90.0 fL 80.0-94.0[facility] HospitalMonocytes Auto (Bld) [#/Vol]Ordered By: (Glynn) Cristy Prince on 12-24-9338Moegalhri (Bld) [#/Vol]0.7 10 3/uL 0.3-0.8[facility] HospitalMonocytes/100 WBC Auto (Bld)Ordered By: Cristy Prince ([place]) on 35-56-0454Ietdhhjwx/100 WBC (Bld)8.6 %1.7-12.0 [facility] HospitalNeutrophils Auto (Bld) [#/Vol]Ordered By: (Glynn) Cristy Prince on 01-33-0177Feqxqqlxqin (Bld) [#/Vol]5.9 10 3/uL1.4-6.5 [facility] HospitalNeutrophils/100 WBC Auto (Bld)Ordered By: Cristy Prince ([place]) on 04-86-2709Baguubiwkfb/100 WBC (Bld)72.8 %43.0-75.0 [facility] HospitalNo Panel InformationOrdered By: Cristy Prince ([place]) on 78-76-7659Nqpcj BacteriaSMALL #/HPFAbnormalNONE SEENSuburban Community Hospital & Brentwood HospitalUrine Culture ReflexedYE-[facility] HospitalUrine Microscopic ReviewYEUniversity Hospitals Ahuja Medical CenterUrine Occult BloodNegativeNEGATIVESuburban [facility] & [facility]wood HospitalUrine Other CastsNONE SEEN #/LPFNONE SEENSuburban Community Hospital & Brentwood HospitalUrine Other CrystalsNone Seen #/HPFNone [facility] HospitalUrine RBC0-2 #/HPF0-2FMercy Health – The Jewish HospitalUrine Squamous Epithelial CellsNONE SEEN #/LPFNONE/RARE [facility] HospitalUrine CVL74-97 #/HPFAbnormalNONE SEENSuburban Community Hospital & [facility]wood HospitalYES-FRMCSuburban Community Hospital & [facility] HospitalYESSuburban [facility] HospitalNONE SEEN #/LPFNONE/RARESub[facility] NegativeNEG/TRACESub[facility] HospitalNone Seen #/HPFNone Seen [facility] HospitalMALL #/HPFAbnormalNONE SEENSt. Francis HospitalL CLOUDYCLEARFMercy Health – The Jewish HospitalNONE SEENNONE SEEN [facility] HospitalLT. YELLOWYELLOWSuburban [facility]0-2 #/HPF0-2FMercy Health – The Jewish Hospital10-20 #/HPFAbnormalNONE SEEN [facility]. [facility] HospitalMALLAbnormalNEGATIVESub[facility]5.55.0-9.0[facility]<=1.977Dyrqursn8.005-1.025 [facility]0.2 EU/dL0.2-1.0[facility] HospitalEosinophils # (Auto)0.2 10 3/uL0.0-0.7FMercy Health – The Jewish Hospital Immature Granulocyte # (Auto)0.04 10 3/uLHigh0.00-0.03[facility] HospitalTroponin I High Udaijwqbxpg705.3 pg/mLCritically high4.0-76.1FMercy Health – The Jewish HospitalComment on above:RESULTS CALLED TO YARIEL Prince, CLOTH BLEACHING RANGE OPERATOR CHIEF @BY Holland Noel, [facility] 2156CUT-OFF POINTS HAVE BEEN ESTABLISHED BASED ON THE FOURTHUNIVERSAL DEFINITION OF MYOCARDIAL INFARCTION. THE UPPERREFERENCE LIMIT (URL) OF TROPONIN, DEFINED THE 99THPERCENTILE OF cTnI DISTRIBUTION IN A REFERENCE POPULATION,HAS BEEN CONFIRMED THE DECISION THRESHOLD FOR MIDIAGNOSIS.99TH PERCENTILE = 76.2 PG/MLNOTE: HIGH-SENSITIVITY TROPONIN ASSAY IS NOT INTENDED TO BEUSED IN ISOLATION BUT SHOULD BE INTERPRETED IN CONJUNCTIONWITHOTHER DIAGNOSTIC AND CLINICAL INFORMATION.131.3 pg/mLCritically high4.0-76.1FMercy Health – The Jewish Hospital2.7 g/dLLow3.4-5.0[facility]0.2 10 3/uL0.0-0.7FMercy Health – The Jewish Hospital143 U/RElsb38-640HhetxqrvtSuburban [facility] Hospital [facility]30 U/B15-71BnkuirlypSuburban Community Hospital & [facility] Hospital42 U/CDifo01-99HyvnishzgSuburban [facility] Hospital [facility]18.0[facility]0.04 10 3/uLHigh0.00-0.03[facility]24.0 mg/dLHigh7.0-18.0[facility]0.5 %0.0-0.5 [facility]8.9 mg/dL8.5-10.1FMercy Health – The Jewish Hospital97 mmol/WPhn40-706HbcidkateSuburban [facility] Hospital [facility]24.8 mmol/L21.0-32.0 [facility]1.33 mg/dLHigh0.70-1.30[facility]>60>=60 mL/min/1.73m 2FMercy Health – The Jewish Hospital92 mg/dL 74-106[facility]5.1 mmol/L3.5-5.1FMercy Health – The Jewish Hospital131 mmol/YBcw430-484BbfdhreenSuburban [facility]0.5 mg/dL 0.2-1.0[facility]6.9 g/dL6.4-8.2FMercy Health – The Jewish HospitalPlatelet mean volume Auto (Bld) [Entitic vol]Ordered By: Cristy Prince ([place]) on 98-43-6633Cipgvwjs mean volume (Bld) [Entitic vol]10.6 fL 9.5-13.5FMercy Health – The Jewish HospitalPlatelets Auto (Bld) [#/Vol]Ordered By: Cristy Prince ([place]) on 10-21-4604Tlqgusxxl (Bld) [#/Vol]244 10 3/uZ592-483 [facility] HospitalRBC Auto (Bld) [#/Vol]Ordered By: Cristy Prince ([place]) on 18-72-8355TPS (Bld) [#/Vol]3.01 10 6/uLLow4.70-6.10St. Francis Hospitalerum or plasma albumin/globulin mass ratioOrdered By: Cristy Prince ([place]) on 25-41-1756Ukyruxf/Globulin [Mass ratio]0.6 {ratio} [facility] CenterSerum or plasma anion gap determinationOrdered By: (Glynn) Cristy Prince on 10-33-7782Mlhnn gap [Moles/Vol]14.3 mmol/L [facility] HospitalUrine Cultureon 41-07-9454Rrgusygv identified Cx Nom (U)ORGANISM: Bibiana albicans (O:CANALB) Tivoli Count >100,000 PERFORMED BY: [facility] [address] [place] [address] PATHOLOGIST FRONT DESK ASSOCIATE MARY SONI M.D.NormalThe Firsthealth Physician GroupComment on above: Performed By: #### CUU ####[address] [address] USAUrine cultureOrdered By: Liliana Miller on 03-90-0821Niuuyzhd identified Cx Nom (U)Bibiana albicansAbWayne HospitalYeast detection in urine sediment by light microscopy Ordered By: (Monisha Muniz Niki on 03-87-7399Lgjef LM Ql (Urine sed)SEEN AbnormalNONE [facility] HospitalComment on above:Many budding yeastModerate HyphaeBasophils [#/volume] in Blood by Automated countOrdered By: Michele Knight on 26-46-4190Fmlkuntut (Bld) [#/Vol]0.0 10*3/uLNormal0.0-0.2 [facility] HospitalComment on above:Result Comment: PERFORMED BY:[id number] [place], [place] [phone] MEDICAL DIRECTORMARY SONI M.D.Performed By: #### CBC ####[address] [address] [place] Basophils/100 leukocytes in Blood by Automated countOrdered By: Michele Knight on 37-59-5767Xjiyhffyb/100 WBC (Bld)0.7 %Normal.[facility] Comment on above:Performed By: #### CBC ####[address] [address] USAComplete Blood Count Auto Diffon 12-18-2024 Mean Corpuscular HGB Conc32.6 g/mMRkaaeh98.5-35.6[facility] Comment on above:Performed By: #### CBC ####[id number] USANRBC%0.0 /100{WBC}Normal0-0.5The Firsthealth Physician GroupComment on above:Performed By: #### CBC ####[id number] USAWhite Blood Count3.6 [CFU]/mL Low4.1-10.5The Firsthealth Physician GroupComment on above:Performed By: #### CBC ####[place] [address] [place] Eosinophils [#/volume] in Blood by Automated countOrdered By: Michele Eugene on 92-33-6585Bxbkwcaujly (Bld) [#/Vol]0.2 10*3/uLNormal0.0-0.45[facility] HospitalComment on above:Performed By: #### CBC ####[id number] USAEosinophils/100 leukocytes in Blood by Automated countOrdered By: Michele Eugene on 09-44-1481Utxbrelrpjd/100 WBC (Bld)6.5 %Normal.[facility] HospitalComment on above:Performed By: #### CBC ####[place] [address] USAErythrocyte distribution width [Ratio] by Automated countOrdered By: Michele Knight on 40-19-8774Gnwcygzmddg distribution width (RBC) [Ratio]18.1 %High 12.0-14.8[facility] HospitalComment on above:Performed By: #### CBC ####[id number] [place] Erythrocytes [#/volume] in Blood by Automated countOrdered By: Michele Knight on 14-37-3018WHV (Bld) [#/Vol]3.00 10*6/uLLow3.90-5.60[facility] HospitalComment on above:Performed By: #### CBC ####[id number] USAHematocrit [Volume Fraction] of Blood by Automated countOrdered By: Michele Knight on 54-51-5321Rusuqrafll (Bld) [Volume fraction]26.3 %Low38.8-50.0[facility] HospitalComment on above: Performed By: #### CBC ####[id number] USAHemoglobin [Mass/volume] in BloodOrdered By: Michele Knight on 10-16-2821Flcxvofypu (Bld) [Mass/Vol]8.6 g/dLLow13.0-17.0[facility] HospitalComment on above:Performed By: #### CBC ####[id number] USALeukocytes [#/volume] corrected for nucleated erythrocytes in Blood by Automated counOrdered By: Michele Knight on 22-99-5606JBY corrected for nucl RBC Auto (Bld) [#/Vol]3.6 10*3/uLLow4.1-10.5FMercy Health – The Jewish HospitalLeukocytes [#/volume] in Blood by Automated countOrdered By: Michele Knight on 82-47-6639MNO (Bld) [#/Vol] 3.6 10*3/uLLow4.1-10.5FMercy Health – The Jewish HospitalComment on above: Performed By: #### CBC ####[id number] USALymphocytes [#/volume] in Blood by Automated count Ordered By: Michele Knight on 82-00-6002Ohtjhzspjpc (Bld) [#/Vol]0.7 10*3/uLLow 1.00-4.8[facility] HospitalComment on above:Performed By: #### CBC ####[id number] [place] Lymphocytes/100 leukocytes in Blood by Automated countOrdered By: Michele Knight on 77-69-3300Zxvwjqvaxgi/100 WBC (Bld)18.6 %Normal.[facility] HospitalComment on above:Performed By: #### CBC ####[id number] [facility] MEXICOMCH [Entitic mass] by Automated count Ordered By: Michele Knight on 94-59-4010FPS (RBC) [Entitic mass]28.6 pgNormal 27.5-35.2FMercy Health – The Jewish HospitalComment on above:Performed By: #### CBC ####[address] MCHC Auto (RBC) [Mass/Vol]Ordered By: Michele Knight on 63-10-4281XCMY (RBC) [Mass/Vol]32.6 g/dL32.5-35.6FMercy Health – The Jewish HospitalMCV [Entitic volume] by Automated countOrdered By: Michele Knight on 68-56-6276RZS (RBC) [Entitic vol]87.8 hCVxoutt01.5-101[facility] HospitalComment on above:Performed By: #### CBC ####[id number] USAMonocytes [#/volume] in Blood by Automated count Ordered By: Michele Knight on 01-15-5011Propcvkvb (Bld) [#/Vol]0.3 10*3/uLNormal 0.0-0.8[facility] HospitalComment on above:Performed By: #### CBC ####[id number] [place] Monocytes/100 leukocytes in Blood by Automated countOrdered By: Michele Knight on 60-38-5140Czprznccu/100 WBC (Bld)8.6 %Normal.[facility] Comment on above:Performed By: #### CBC ####[address] [id number] USANeutrophils [#/volume] in Blood by Automated countOrdered By: Michele Knight on 54-10-4424Qouffeuppzt (Bld) [#/Vol]2.4 10*3/uL Normal1.8-7.7FMercy Health – The Jewish HospitalComment on above:Performed By: #### CBC ####[address] [address] USANeutrophils/100 leukocytes in Blood by Automated countOrdered By: Michele Knight on 79-02-9647Rthotpbemye/100 WBC (Bld)65.6 %Normal.[facility] HospitalComment on above:Performed By: #### CBC ####[address] [address] USANucleated erythrocytes [Presence] in Blood by Automated countOrdered By: Michele Knight on 12-18-2024 Nucleated RBC Auto Ql (Bld)0.0 /100{WBC}0-0.5FMercy Health – The Jewish Hospital Platelet mean volume [Entitic volume] in Blood by Automated countOrdered By: Michele Knight on 45-33-2303Bkcfnprs mean volume (Bld) [Entitic vol]7.4 fLNormal 6.6-10.1FMercy Health – The Jewish HospitalComment on above:Performed By: #### CBC ####[address] [address] [place] Platelets [#/volume] in Blood by Automated countOrdered By: Michele Knight on 77-61-1946Qsdsxubts (Bld) [#/Vol]262 10*3/wSRskbha164-945NajarbfltSuburban Community Hospital & Brentwood HospitalComment on above:Performed By: #### CBC ####[address] [address] USABasic Metabolic Panelon 72-67-9002Cofzgxdsni Clr Calc Dfxynkih75.08[facility] Comment on above:Result Comment: PERFORMED BY:[address] [place], [place] [phone] MEDICAL DIRECTORMARY SONI M.D.Performed By: #### BMP, CBC ####[address] [address] USAGFR/1.73 sq M.predicted MDRD (S/P/Bld) [Vol rate/Area]mL/min/{1.73_m2}NormalThe [facility] Physician Group Comment on above:Performed By: #### BMP, CBC ####[address] [address] USACalcium [Mass/volume] in Serum or PlasmaOrdered By: Akash Mccartney on 10-49-2325Zdlwvuf [Mass/Vol]8.4 mg/dL Low8.6-10.3FMercy Health – The Jewish HospitalComment on above:Performed By: #### BMP, CBC ####[address] [address] USACapillary blood glucose measurement by glucometer (mass/volume)Ordered By: Akash Mccartney on 21-86-9471Hbwurka [Mass/Vol]108 mg/dLNormalSuburban Community Hospital & Brentwood HospitalComment on above:Random Glucose Reference Range is [...] Serum or PlasmaOrdered By: Akash Mccartney on 44-31-5401ST1 [Moles/Vol]26.3 mmol/L Eylfkt58.0-31.0[facility] HospitalComment on above:Performed By: #### BMP, CBC ####[address] [address] USAChloride [Moles/volume] in Serum or PlasmaOrdered By: Akash Mccartney on 01-12-9281Psjvwyrk [Moles/Vol]103 mmol/TAnrcjp18-994KgiktxnumSuburban Community Hospital & Brentwood HospitalComment on above:Performed By: #### BMP, CBC ####[address] [address] [facility] Complete Blood Count Auto Diffon 42-07-2790Odilyrqmh (Bld) [#/Vol]0.0 10*3/uL Normal0.0-0.2The Firsthealth Physician GroupComment on above:Result Comment: PERFORMED BY:[address] [place], [place] [phone] MEDICAL DIRECTORMARY SONI M.D.Performed By: #### BMP, CBC ####[address] [address] USABasophils/100 WBC (Bld)0.8 %Normal.The Firsthealth Physician GroupComment on above:Performed By: #### BMP, CBC ####[address] [address] USAEosinophils (Bld) [#/Vol]0.2 10*3/uLNormal 0.0-0.45The [facility] Physician GroupComment on above:Performed By: #### BMP, CBC ####[address] [address] [place] Eosinophils/100 WBC (Bld)6.2 %Normal.The [facility] Physician GroupComment on above:Performed By: #### BMP, CBC ####[address] [address] USAErythrocyte distribution width (RBC) [Ratio]18.1 % High12.0-14.8The [facility] Physician GroupComment on above:Performed By: #### BMP, CBC ####[address] [address] USAHematocrit (Bld) [Volume fraction]24.1 %Low38.8-50.0The [facility] Physician GroupComment on above:Performed By: #### BMP, CBC ####[address] [address] USAHemoglobin (Bld) [Mass/Vol]7.9 g/dLLow 13.0-17.0The [facility] Physician GroupComment on above:Performed By: #### BMP, CBC ####[place] [address] [place] Lymphocytes (Bld) [#/Vol]0.6 10*3/uLLow1.00-4.8[facility] Comment on above:Performed By: #### BMP, CBC ####[place] [address] USALymphocytes/100 WBC (Bld)17.9 %Normal. The Firsthealth Physician GroupComment on above:Performed By: #### BMP, CBC ####[address]H (RBC) [Entitic mass]29.0 lsGydjnm34.5-35.2The [facility] Physician GroupComment on above:Performed By: #### BMP, CBC ####[address]V (RBC) [Entitic vol]87.9 xIMgydzq39.5-101 The [facility]health Physician GroupComment on above:Performed By: #### BMP, CBC ####[place] [address] USAMean Corpuscular HGB Conc33.0 g/jWCkkhvf43.5-35.6The [facility] Physician GroupComment on above:Performed By: #### BMP, CBC ####[place] [address] USAMonocytes (Bld) [#/Vol]0.4 10*3/uLNormal 0.0-0.8The [facility] Physician GroupComment on above:Performed By: #### BMP, CBC ####[address] [id number] [place] Monocytes/100 WBC (Bld)10.4 %Normal.The [facility] Physician GroupComment on above:Performed By: #### BMP, CBC ####[place] [address] USANeutrophils (Bld) [#/Vol]2.2 10*3/uLNormal1.8-7.7The [facility] Physician GroupComment on above:Performed By: #### BMP, CBC ####[place] [address] [place] Neutrophils/100 WBC (Bld)64.7 %Normal.The [facility] Physician GroupComment on above:Performed By: #### BMP, CBC ####[place] [address] USANRBC%0.1 /100{WBC}Normal0-0.5The Firsthealth Physician GroupComment on above:Performed By: #### BMP, CBC ####[place] [address] USAPlatelet mean volume (Bld) [Entitic vol]7.3 fLNormal6.6-10.1The Firsthealth Physician GroupComment on above: Performed By: #### BMP, CBC ####[place] [address] USAPlatelets (Bld) [#/Vol]195 10*3/aUBopfgd307-005Mas Firsthealth Physician GroupComment on above:Performed By: #### BMP, CBC ####[place] [address] USARBC (Bld) [#/Vol]2.74 10*6/uLLow3.90-5.60The [facility] Physician GroupComment on above:Performed By: #### BMP, CBC ####[place] [address] USAWBC (Bld) [#/Vol]3.4 10*3/uLLow4.1-10.5The [facility] Physician GroupComment on above:Performed By: #### BMP, CBC ####[place] [address] USAWhite Blood Count3.4 [CFU]/mLLow4.1-10.5The [facility] Physician GroupComment on above:Performed By: #### BMP, CBC ####[place] [address] USACreatinine [Mass/volume] in Serum or PlasmaOrdered By: Akash Mccartney on 81-58-1439Cowvngkruo [Mass/Vol]1.20 mg/dLNormal0.70-1.30[facility] HospitalComment on above:Performed By: #### BMP, CBC ####[facility] [id number] [place] [address] [place] Glomerular filtration rate [Volume Rate/Area] in Serum, Plasma or Blood by CreatinineOrdered By: Akash Mccartney on 57-13-4115Rszapsdwsg filtration rate [Volume Rate/Area] in Serum, Plasma or Blood by Creatinine> 60.0 mL/Min [facility] HospitalGlucose Poct Glucometerson 34-95-3297Fajdiyh5 Glu2: Cleaned [facility] Physician GroupComment on above:Result Comment: PERFORMED BY:[address] [place], [place] [phone] MEDICAL MARY KATE SONI M.D.Performed By: #### GLULS ####Point of Care testing,Glucose [Mass/volume] in Serum or PlasmaOrdered By: Akash Mccartney on 41-02-6293Iprcbjg [Mass/Vol]84 mg/dL Pitzyx47-257RxoclsrpmSuburban Community Hospital & Brentwood HospitalComment on above:ADA recommended reference rangeRandom Glucose [...] recommended reference rangePerformed By: #### BMP, CBC ####[facility] [id number] [place] [address] USANo Panel InformationOrdered By: Akash Mccartney on 12-17-2024 Bedside Glucose CommentGlu2: cleaned [facility] HospitalGlu2: cleaned [facility] HospitalPharmacy Creatinine Clearance (Chem47.08[facility]47.08[facility] HospitalPotassium [Moles/volume] in Serum or PlasmaOrdered By: Akash Mccartney on 29-34-4889Hkuvdxijd [Moles/Vol]3.8 mmol/LNormal3.5-5.1FMercy Health – The Jewish HospitalComment on above:Performed By: #### BMP, CBC ####[address] [place] [address] USASerum or plasma anion gap determinationOrdered By: Akash Mccartney on 56-57-4761Ikbto gap [Moles/Vol]9.5 mmol/LNormal6.0-15.0[facility] HospitalComment on above:Performed By: #### BMP, CBC ####[address] [place] [address] USASodium [Moles/volume] in Serum or PlasmaOrdered By: Akash Mccartney on 92-64-7603Vfskoy [Moles/Vol]135 mmol/ZVsb958-861KpawshornSuburban Community Hospital & Brentwood HospitalComment on above:Performed By: #### BMP, CBC ####[address] [address] USAUrea nitrogen [Mass/volume] in Serum or PlasmaOrdered By: Akash Mccartney on 46-54-3023Oeqj nitrogen [Mass/Vol]20 mg/dLNormal7-25[facility] HospitalComment on above:Performed By: #### BMP, CBC ####[address] [place] [address] USAGlucose Poct Glucometerson 68-02-4097Ffycrbb [Mass/Vol]157 mg/dLNoAsheville Specialty Hospital Physician GroupComment on above:Result Comment: Random Glucose Reference Range is dependent on time and content of last meal. Glucose of more than 200 mg/dL in a nonstressed, ambulatory subject supports the diagnosis of Diabetes Mellitus.PERFORMED BY:[address] [place], [place] [phone] MEDICAL DIRECTORMARIO S NAE M.D.Performed By: #### GLULS ####Point of Care testing,Alanine aminotransferase [Enzymatic activity/volume] in Serum or PlasmaOrdered By: Akash Mccartney on 12-15-2024 ALT [Catalytic activity/Vol]10 U/LNormal7-52[facility] Comment on above:Performed By: #### CMP, CBC ####[address] [place] [address] USAAlbumin [Mass/volume] in Serum or Plasma by Bromocresol green (BCG) dye binding methoOrdered By: Akash Mccartney on 31-29-5537Bzzjqmk BCG dye [Mass/Vol]3.4 g/dLLow3.5-5.7FMercy Health – The Jewish HospitalAlkaline phosphatase [Enzymatic activity/volume] in Serum or PlasmaOrdered By: Akash Mccartney on 93-52-7874PSD [Catalytic activity/Vol]99 U/MVdoaqt31-245JwfjmickcSuburban Community Hospital & Brentwood HospitalComment on above:Performed By: #### CMP, CBC ####[address] [id number] USAAspartate aminotransferase [Enzymatic activity/volume] in Serum or PlasmaOrdered By: Akash Mccartney on 12-15-2024 AST [Catalytic activity/Vol]23 U/IXhpdde56-38DlwpfsjgpSuburban [facility] Comment on above:Performed By: #### CMP, CBC ####[place] [id number] USABilirubin.total [Mass/volume] in Serum or PlasmaOrdered By: Akash Mccartney on 85-96-5423Mxqquxtgo [Mass/Vol]0.8 mg/dLNormal0.3-1.0[facility] HospitalComment on above:Performed By: #### CMP, CBC ####[address] [place] [address] USAComplete Blood Count Auto Diffon 49-48-4779Hqvlqzrqp (Bld) [#/Vol] 0.0 10*3/uLNormal0.0-0.2The [facility] Physician GroupComment on above:Result Comment: PERFORMED BY:[address] [place], [place] [phone] MEDICAL DIRECTORMARY SONI M.D.Performed By: #### CMP, CBC ####[address] [address] USABasophils/100 WBC (Bld)0.5 %Normal.[facility] Comment on above:Performed By: #### CMP, CBC ####[address] [address] USAEosinophils (Bld) [#/Vol]0.2 10*3/uL Normal0.0-0.45The [facility] Physician GroupComment on above:Performed By: #### CMP, CBC ####[address] [address] USAEosinophils/100 WBC (Bld)4.6 %Normal.The [facility] Physician GroupComment on above:Performed By: #### CMP, CBC ####[address] [address] USAErythrocyte distribution width (RBC) [Ratio]18.3 % High12.0-14.8The [facility] Physician GroupComment on above:Performed By: #### CMP, CBC ####[address] [address] USAHematocrit (Bld) [Volume fraction]29.0 %Low38.8-50.0The [facility] Physician GroupComment on above:Performed By: #### CMP, CBC ####[address] [address] USAHemoglobin (Bld) [Mass/Vol]9.5 g/dLLow 13.0-17.0The [facility] Physician GroupComment on above:Performed By: #### CMP, CBC ####[address] [address] [place] Lymphocytes (Bld) [#/Vol]0.4 10*3/uLLow1.00-4.8[facility] Comment on above:Performed By: #### CMP, CBC ####[address] [place] [id number] USALymphocytes/100 WBC (Bld)7.7 %Normal. The Firsthealth Physician GroupComment on above:Performed By: #### CMP, CBC ####[address] Garcia StreetMCH (RBC) [Entitic mass]29.0 chQpppxe97.5-35.2The Firsthealth Physician GroupComment on above:Performed By: #### CMP, CBC ####[address] StreetMCV (RBC) [Entitic vol]88.4 dWBbdvhy01.5-101 The Firsthealth Physician GroupComment on above:Performed By: #### CMP, CBC ####[place] [address] USAMean Corpuscular HGB Conc32.8 g/mDCailpl17.5-35.6The Firsthealth Physician GroupComment on above:Performed By: #### CMP, CBC ####[place] [address] USAMonocytes (Bld) [#/Vol]0.2 10*3/uLNormal 0.0-0.8The Firsthealth Physician GroupComment on above:Performed By: #### CMP, CBC ####[place] [id number] [place] Monocytes/100 WBC (Bld)3.3 %Normal.The Firsthealth Physician GroupComment on above:Performed By: #### CMP, CBC ####[place] [id number] USANeutrophils (Bld) [#/Vol]4.4 10*3/uLNormal1.8-7.7The Firsthealth Physician GroupComment on above:Performed By: #### CMP, CBC ####[place] [id number] [place] Neutrophils/100 WBC (Bld)83.9 %Normal.The Firsthealth Physician GroupComment on above:Performed By: #### CMP, CBC ####[place] [address] USANRBC%0.2 /100{WBC}Normal0-0.5The Firsthealth Physician GroupComment on above:Performed By: #### CMP, CBC ####[place] [address] USAPlatelet mean volume (Bld) [Entitic vol]7.5 fLNormal6.6-10.1The Firsthealth Physician GroupComment on above: Performed By: #### CMP, CBC ####[place] [address] USAPlatelets (Bld) [#/Vol]280 10*3/gJTnyhei953-166Ndz First[facility] Physician GroupComment on above:Performed By: #### CMP, CBC ####[place] [address] USARBC (Bld) [#/Vol]3.27 10*6/uLLow3.90-5.60The First[facility] Physician GroupComment on above:Performed By: #### CMP, CBC ####[place] [address] USAWBC (Bld) [#/Vol]5.2 10*3/uLNormal4.1-10.5The Firsthealth Physician GroupComment on above:Performed By: #### CMP, CBC ####[place] [address] USAWhite Blood Count5.2 [CFU]/mLNormal4.1-10.5The First[facility] Physician GroupComment on above:Performed By: #### CMP, CBC ####[place] [address] USAComprehensive Metabolic Panelon 82-26-3340Kvobwnn [Mass/Vol]3.4 g/dLLow3.5-5.7The Firsthealth Physician GroupComment on above: Performed By: #### CMP, CBC ####[address] [address] USAAnion gap [Moles/Vol]10.3 mmol/LNormal6.0-15.0The Firsthealth Physician GroupComment on above:Performed By: #### CMP, CBC ####[address] [address] USACalcium [Mass/Vol]8.9 mg/dLNormal8.6-10.3The Firsthealth Physician GroupComment on above: Performed By: #### CMP, CBC ####[address] [address] USAChloride [Moles/Vol]103 mmol/CGniahz47-654Nbq First[facility] Physician GroupComment on above:Performed By: #### CMP, CBC ####[place] [address] USACO2 [Moles/Vol]26.6 mmol/ZVcxoyd66.0-31.0The First[facility] Physician GroupComment on above:Performed By: #### CMP, CBC ####[place] [address] USACreatinine [Mass/Vol]1.21 mg/dLNormal0.70-1.30The First[facility] Physician GroupComment on above:Performed By: #### CMP, CBC ####[address] [address] [place] Creatinine Clr Calc Tgoolmqj22.69NormalThe Firsthealth Physician GroupComment on above:Result Comment: PERFORMED BY:[address] [place], [place] [phone] MEDICAL MARY KATE SONI M.D.Performed By: #### CMP, CBC ####[address] [address] USAGFR/1.73 sq M.predicted MDRD (S/P/Bld) [Vol rate/Area]59.409 mL/min/{1.73_m2}NormalThe Firsthealth Physician GroupComment on above:Performed By: #### CMP, CBC ####[address] [place] [address] USAGlucose [Mass/Vol]83 mg/mUXqndxn17-506Xee First[facility] Physician GroupComment on above:Result Comment: Random Glucose Reference Range is dependent on time and content of last meal. Glucose of more than 200 mg/dL in a nonstressed, ambulatory subject supports the diagnosis of Diabetes Mellitus. ADA recommended reference rangePerformed By: #### CMP, CBC ####[address] [address] USAPotassium [Moles/Vol] 3.9 mmol/LNormal3.5-5.1The [facility]ician [facility]aird HospitalComment on above:Performed By: #### CMP, CBC ####[place] [address] USASodium [Moles/Vol]136 mmol/PCimnxo544-598Wgi [facility]ician Laird HospitalComment on above:Performed By: #### CMP, CBC ####[place] [address] USAUrea nitrogen [Mass/Vol]16 mg/dL Normal7-25The [facility] Physician Laird HospitalComment on above:Performed By: #### CMP, CBC ####[place] [address] [place] Protein [Mass/volume] in Serum or PlasmaOrdered By: Akash Mccartney on 27-99-1453Dqcddkf [Mass/Vol]6.6 g/dLNormal6.4-8.9[facility] HospitalComment on above:Performed By: #### CMP, CBC ####[place] [address] USASerum globulin measurement by calculation (mass/volume)Ordered By: Akash Mccartney on 53-89-4725Dncfcvty (S) [Mass/Vol]3.2 g/dLNormalSuburban Community Hospital & Brentwood HospitalComment on above: Performed By: #### CMP, CBC ####[place] [address] USASerum or plasma albumin/globulin mass ratioOrdered By: Akash Mccartney on 87-06-3836Jagatzs/Globulin [Mass ratio]1.1 {ratio} NormalSuburban Community Hospital & Brentwood HospitalComment on above:Performed By: #### CMP, CBC ####[place] [id number] [facility] Complete Blood Count Auto Diffon 16-11-0038Xrgqnymya (Bld) [#/Vol]0.0 10*3/uL Normal0.0-0.2The Firsthealth Physician GroupComment on above:Result Comment: PERFORMED BY:[address] [place], [place] [phone] MEDICAL DIRECTORMARY SONI M.D.Performed By: #### CBC, CMP ####[place] [address] USABasophils/100 WBC (Bld)0.7 %Normal.The [facility] Physician GroupComment on above:Performed By: #### CBC, CMP ####[place] [address] USAEosinophils (Bld) [#/Vol]0.3 10*3/uLNormal 0.0-0.45The [facility] Physician Laird HospitalComment on above:Performed By: #### CBC, CMP ####[place] [address] [place] Eosinophils/100 WBC (Bld)5.4 %Normal.The First[facility] Physician GroupComment on above:Performed By: #### CBC, CMP ####[place] [address] USAErythrocyte distribution width (RBC) [Ratio]18.3 % High12.0-14.8The First[facility] Physician GroupComment on above:Performed By: #### CBC, CMP ####[place] [address] USAHematocrit (Bld) [Volume fraction]25.1 %Low38.8-50.0The First[facility] Physician GroupComment on above:Performed By: #### CBC, CMP ####[place] [address] USAHemoglobin (Bld) [Mass/Vol]8.2 g/dLLow 13.0-17.0The First[facility] Physician GroupComment on above:Performed By: #### CBC, CMP ####[place] [address] [place] Lymphocytes (Bld) [#/Vol]1.2 10*3/uLNormal1.00-4.8The [facility] Comment on above:Performed By: #### CBC, CMP ####[place] [address] USALymphocytes/100 WBC (Bld)22.4 %Normal. The Firsthealth Physician GroupComment on above:Performed By: #### CBC, CMP ####[place] [address] USAMCH (RBC) [Entitic mass]28.5 vzPqhido31.5-35.2The First[facility] Physician GroupComment on above:Performed By: #### CBC, CMP ####[place] [address] USAMCV (RBC) [Entitic vol]87.6 pCQksnxo31.5-101 The [facility] Physician GroupComment on above:Performed By: #### CBC, CMP ####[place] [address] USAMean Corpuscular HGB Conc32.5 g/fSWzbnmb68.5-35.6The [facility] Physician GroupComment on above:Performed By: #### CBC, CMP ####[place] [address] USAMonocytes (Bld) [#/Vol]0.5 10*3/uLNormal 0.0-0.8The First[facility] Physician GroupComment on above:Performed By: #### CBC, CMP ####[place] [address] [place] Monocytes/100 WBC (Bld)8.9 %Normal.The Firsthealth Physician GroupComment on above:Performed By: #### CBC, CMP ####[address] [address] USANeutrophils (Bld) [#/Vol]3.3 10*3/uLNormal1.8-7.7The [facility] Physician GroupComment on above:Performed By: #### CBC, CMP ####[place] [address] [place] Neutrophils/100 WBC (Bld)62.6 %Normal.The [facility] Physician GroupComment on above:Performed By: #### CBC, CMP ####[place] [address] USANRBC%0.1 /100{WBC}Normal0-0.5The First[facility] Physician GroupComment on above:Performed By: #### CBC, CMP ####[place] [address] USAPlatelet mean volume (Bld) [Entitic vol]7.7 fLNormal6.6-10.1The First[facility] Physician GroupComment on above: Performed By: #### CBC, CMP ####[address] [address] USAPlatelets (Bld) [#/Vol]230 10*3/hOPnbqzj985-795Bog [facility] Physician GroupComment on above:Performed By: #### CBC, CMP ####[place] [address] USARBC (Bld) [#/Vol]2.87 10*6/uLLow3.90-5.60The [facility] Physician GroupComment on above:Performed By: #### CBC, CMP ####[address] [address] USAWBC (Bld) [#/Vol]5.3 10*3/uLNormal4.1-10.5The First[facility] Physician GroupComment on above:Performed By: #### CBC, CMP ####[place] [address] USAWhite Blood Count5.3 [CFU]/mLNormal4.1-10.5The [facility] Physician GroupComment on above:Performed By: #### CBC, CMP ####[place] [phone] USAComprehensive Metabolic Panelon 13-85-2675Zxcftfb [Mass/Vol]3.1 g/dLLow3.5-5.7The First[facility] Physician GroupComment on above: Performed By: #### CBC, CMP ####[place] [address] USAAlbumin/Globulin [Mass ratio]1.1 {ratio}NormalThe Firsthealth Physician GroupComment on above:Performed By: #### CBC, CMP ####[place] [address] USAALP [Catalytic activity/Vol]85 U/OOgedde92-270Jgu [facility] Physician GroupComment on above:Performed By: #### CBC, CMP ####[place] [address] USAALT [Catalytic activity/Vol]10 U/LNormal7-52 The [facility] Physician GroupComment on above:Performed By: #### CBC, CMP ####[place] [address] USAAnion gap [Moles/Vol]11.5 mmol/LNormal6.0-15.0The [facility] Physician GroupComment on above:Performed By: #### CBC, CMP ####[place] [address] USAAST [Catalytic activity/Vol]25 U/SHrxnrm77-06Xzo [facility] Physician GroupComment on above:Performed By: #### CBC, CMP ####[place] [address] [place] Bilirubin [Mass/Vol]0.6 mg/dLNormal0.3-1.0The [facility] Physician GroupComment on above:Performed By: #### CBC, CMP ####[place] [address] USACalcium [Mass/Vol]8.3 mg/dLLow8.6-10.3The [facility] Physician GroupComment on above:Performed By: #### CBC, CMP ####[address] [address] [place] Chloride [Moles/Vol]104 mmol/PJtawog92-027Vyz [facility] Physician GroupComment on above:Performed By: #### CBC, CMP ####[place] [address] [place] [address] USACO2 [Moles/Vol]25.5 mmol/PGbsmbb42.0-31.0The First[facility] Physician GroupComment on above:Performed By: #### CBC, CMP ####[address] [address] [place] Creatinine [Mass/Vol]1.15 mg/dLNormal0.70-1.30The [facility] Comment on above:Performed By: #### CBC, CMP ####[address] [address] USACreatinine Clr Calc Kcdwrvvm32.10 NormalThe Firsthealth Physician GroupComment on above:Result Comment: PERFORMED BY:[address] [place], [place] [phone] MEDICAL DIRECTORMARY SONI M.D.Performed By: #### CBC, CMP ####[address] [address] [place] GFR/1.73 sq M.predicted MDRD (S/P/Bld) [Vol rate/Area]mL/min/{1.73_m2}NormalThe Firsthealth Physician GroupComment on above:Performed By: #### CBC, CMP ####[address] [address] [place] Globulin (S) [Mass/Vol]2.8 g/dLNormalThe Firsthealth Physician GroupComment on above:Performed By: #### CBC, CMP ####[address] [address] USAGlucose [Mass/Vol]81 mg/sYNdidvp75-405Xwo [facility] Physician GroupComment on above:Result Comment: Random Glucose Reference Range is dependent on time and content of last meal. Glucose of more than 200 mg/dL in a nonstressed, ambulatory subject supports the diagnosis of Diabetes Mellitus. ADA recommended reference rangePerformed By: #### CBC, CMP ####[place] [address] [place] [address] USAPotassium [Moles/Vol] 4.0 mmol/LNormal3.5-5.1The [facility] Physician Laird HospitalComment on above:Performed By: #### CBC, CMP ####[place] [address] [place] [address] USAProtein [Mass/Vol]5.9 g/dLLow6.4-8.9The [facility] Comment on above:Performed By: #### CBC, CMP ####[address] [address] USASodium [Moles/Vol]137 mmol/LNormal 136-145The Firsthealth Physician GroupComment on above:Performed By: #### CBC, CMP ####[address] [address] USAUrea nitrogen [Mass/Vol]16 mg/dLNormal7-25The [facility] Physician Laird HospitalComment on above:Performed By: #### CBC, CMP ####[address] [address] USAECH echo transthoracicon 32-62-0858TID echo transthoracicNoAsheville Specialty Hospital Physician EhexfA7C with Estimated Average Gluon 96-98-4428Cwipgyj [Mass/Vol]111 mg/dLNoAsheville Specialty Hospital Physician Laird HospitalComment on above:Result Comment: PERFORMED BY:[address] [place], [place] [phone] MEDICAL DIRECTORMARY SONI M.D.Performed By: #### ELDER, PTT, CMP, FE and TIBC, PT, A1C WTH eA, LIPID, MG, [id number], HS TROP, CBC ####[address] [address] USABlood estimated average glucose determination by estimation from glycated hemoglobinOrdered By: Akash Mccartney on 12-13-2024 Average glucose Estimated from glycated hemoglobin (Bld) [Mass/Vol]111 mg/dL [facility] HospitalCholesterol [Mass/volume] in Serum or Plasma Ordered By: Akash Mccartney on 60-00-8554Qpinleflnzi [Mass/Vol]89 mg/dLLow 140-200[facility] HospitalComment on above:Chol less than 200 mg/dl low riskChol 201-239 mg/dl borderline riskChol 240 mg/dl and greater high riskOrder Comment: FASTING YResult Comment: Chol less than 200 mg/dl low risk Chol 201-239 mg/dl borderline risk Chol 240 mg/dland greater high riskPerformed By: #### ELDER, PTT, CMP, FE and TIBC, PT, A1C WTH eA, LIPID, MG, [id number], HS TROP, CBC ####[facility] [id number] [place] [address] USACholesterol in HDL [Mass/volume] in Serum or PlasmaOrdered By: Akash Mccartney on 90-52-0650Yopoovhapgl in HDL [Mass/Vol]43 mg/lKOjtmmt34-37NsiwpuooxSuburban Community Hospital & Brentwood HospitalComment on above:HDL CHOL ATP-III CLASSIFICATION Cardiovascular RiskHDL > or equal to 60 mg/dL LOWHDL < 40 mg/dL HIGHOrder Comment: FASTING YResult Comment: HDL CHOL ATP-III CLASSIFICATION Cardiovascular Risk HDL > or equal to 60 mg/dL LOW HDL < 40 mg/dL HIGHPerformed By: #### ELDER, PTT, CMP, FE and TIBC, PT, A1C WTH eA, LIPID, MG, [id number], HS TROP, CBC ## ##[facility] [address] [place] [address] [place] Cholesterol in LDL Calc [Mass/Vol]Ordered By: Akash Mccartney on 12-13-2024 Cholesterol in LDL [Mass/Vol]35 mg/dL0-100[facility] Comment on above:LDL ATP III CLASSIFICATIONLDL less than 100 mg/dL OptimalLDL 100-129 mg/dL Near or above smjpaqqDKQ552-726 mg/dL Borderline highLDL 160-189 mg/dL HighLDL greater than 189 mg/dL Very highCholesterol in VLDL Calc [Mass/Vol]Ordered By: Akash Mccartney on 91-69-2056Cxqlxjylwok in VLDL [Mass/Vol]11 mg/dLSuburban Community Hospital & Brentwood HospitalComplete Blood Count Auto Diffon 76-87-3452Ladjcraxv (Bld) [#/Vol]0.0 10*3/uLNormal0.0-0.2The [facility] Physician GroupComment on above:Result Comment: PERFORMED BY:[address] [place], [place] [phone] MEDICAL DIRECTORMARY SONI M.D.Performed By: #### ELDER, PTT, CMP, FE and TIBC, PT, A1C WTH eA, LIPID, MG, [id number], HS TROP, CBC ####[address] [address] USABasophils/100 WBC (Bld)0.8 %Normal.The [facility] Physician GroupComment on above:Performed By: #### ELDER, PTT, CMP, FE and TIBC, PT, A1C WTH eA, LIPID, MG, [id number], HS TROP, CBC ####[address] [address] USAEosinophils (Bld) [#/Vol]0.4 10*3/uLNormal0.0-0.45The [facility] Physician GroupComment on above: Performed By: #### ELDER, PTT, CMP, FE and TIBC, PT, A1C WTH eA, LIPID, MG, [id number], HS TROP, CBC ####[address] [address] USAEosinophils/100 WBC (Bld)7.4 %Normal.The [facility] Physician GroupComment on above:Performed By: #### ELDER, PTT, CMP, FE and TIBC, PT, A1C WTH eA, LIPID, MG, [id number], HS TROP, CBC ####[address] [address] USAErythrocyte distribution width (RBC) [Ratio]18.2 %High12.0-14.8The [facility] Physician GroupComment on above: Performed By: #### ELDER, PTT, CMP, FE and TIBC, PT, A1C WTH eA, LIPID, MG, [id number], HS TROP, CBC ####[place] [address] USAHematocrit (Bld) [Volume fraction]23.9 %Low38.8-50.0 The First[facility] Physician GroupComment on above:Performed By: #### ELDER, PTT, CMP, FE and TIBC, PT, A1C WTH eA, LIPID, MG, [id number], HS TROP, CBC ####[place] [address] USAHemoglobin (Bld) [Mass/Vol]7.9 g/dLLow13.0-17.0The [facility] Physician GroupComment on above: Performed By: #### ELDER, PTT, CMP, FE and TIBC, PT, A1C WTH eA, LIPID, MG, [id number], HS TROP, CBC ####[place] [address] USALymphocytes (Bld) [#/Vol]1.0 10*3/uLNormal1.00-4.8 The [facility] Physician GroupComment on above:Performed By: #### ELDER, PTT, CMP, FE and TIBC, PT, A1C WTH eA, LIPID, MG, [id number], HS TROP, CBC ####[place] [address] USALymphocytes/100 WBC (Bld)19.1 %Normal.The [facility] Physician GroupComment on above:Performed By: #### ELDER, PTT, CMP, FE and TIBC, PT, A1C WTH eA, LIPID, MG, [id number], HS TROP, CBC ####[place] [address] USAMCH (RBC) [Entitic mass]29.1 waCqapfp67.5-35.2The [facility] Physician GroupComment on above:Performed By: #### ELDER, PTT, CMP, FE and TIBC, PT, A1C WTH eA, LIPID, MG, [id number], HS TROP, CBC ####[place] [address] USAMCV (RBC) [Entitic vol]88.3 mZSmqufv02.5-101The [facility] Physician GroupComment on above:Performed By: #### ELDER, PTT, CMP, FE and TIBC, PT, A1C WTH eA, LIPID, MG, [id number], HS TROP, CBC ####[place] [address] USAMean Corpuscular HGB Conc32.9 g/hGAxuevv78.5-35.6The [facility] Physician GroupComment on above: Performed By: #### ELDER, PTT, CMP, FE and TIBC, PT, A1C WTH eA, LIPID, MG, [id number], HS TROP, CBC ####[place] [address] USAMonocytes (Bld) [#/Vol]0.4 10*3/uLNormal0.0-0.8The [facility] Physician GroupComment on above:Performed By: #### ELDER, PTT, CMP, FE and TIBC, PT, A1C WTH eA, LIPID, MG, [id number], HS TROP, CBC ####[place] [address] USAMonocytes/100 WBC (Bld)7.4 %Normal.The [facility] Physician GroupComment on above:Performed By: #### ELDER, PTT, CMP, FE and TIBC, PT, A1C WTH eA, LIPID, MG, [id number], HS TROP, CBC ####[place] [phone] [place] Neutrophils (Bld) [#/Vol]3.4 10*3/uLNormal1.8-7.7The [facility] Comment on above:Performed By: #### ELDER, PTT, CMP, FE and TIBC, PT, A1C WTH eA, LIPID, MG, [id number], HS TROP, CBC ####[place] [address] USANeutrophils/100 WBC (Bld)65.3 %Normal.The [facility] Physician GroupComment on above:Performed By: #### ELDER, PTT, CMP, FE and TIBC, PT, A1C WTH eA, LIPID, MG, [id number], HS TROP, CBC ####[place] [address] USANRBC%0.0 /100{WBC}Normal0-0.5 The [facility] Physician GroupComment on above:Performed By: #### ELDER, PTT, CMP, FE and TIBC, PT, A1C WTH eA, LIPID, MG, [id number], HS TROP, CBC ####[place] [address] USAPlatelet mean volume (Bld) [Entitic vol]7.8 fLNormal6.6-10.1The [facility] Physician GroupComment on above:Performed By: #### ELDER, PTT, CMP, FE and TIBC, PT, A1C WTH eA, LIPID, MG, [id number], HS TROP, CBC ####[place] [address] USAPlatelets (Bld) [#/Vol]218 10*3/wACyhogg016-914Nox [facility] Physician GroupComment on above:Performed By: #### ELDER, PTT, CMP, FE and TIBC, PT, A1C WTH eA, LIPID, MG, [id number], HS TROP, CBC ####[place] [address] USARBC (Bld) [#/Vol]2.71 10*6/uLLow3.90-5.60The [facility] Physician GroupComment on above:Performed By: #### ELDER, PTT, CMP, FE and TIBC, PT, A1C WTH eA, LIPID, MG, [id number], HS TROP, CBC ####[place] [address] USAWBC (Bld) [#/Vol]5.2 10*3/uLNormal4.1-10.5The [facility] Physician GroupComment on above:Performed By: #### ELDER, PTT, CMP, FE and TIBC, PT, A1C WTH eA, LIPID, MG, [id number], HS TROP, CBC ####[address] [address] USAWhite Blood Count5.2 [CFU]/mLNormal4.1-10.5The [facility] Physician GroupComment on above:Performed By: #### ELDER, PTT, CMP, FE and TIBC, PT, A1C WTH eA, LIPID, MG, [id number], HS TROP, CBC ####[place] [phone] USAComprehensive Metabolic Panelon 24-57-9286Dmholhv [Mass/Vol]3.1 g/dLLow3.5-5.7The [facility] Physician GroupComment on above:Order Comment: FASTING YPerformed By: #### ELDER, PTT, CMP, FE and TIBC, PT, A1C WTH eA, LIPID, MG, [id number], HS TROP, CBC ## ##[place] [id number] [place] Albumin/Globulin [Mass ratio]1.1 {ratio}NormalThe [facility] Physician Group Comment on above:Order Comment: FASTING YPerformed By: #### ELDER, PTT, CMP, FE and TIBC, PT, A1C WTH eA, LIPID, MG, [id number], HS TROP, CBC ####[address] [address] USAALP [Catalytic activity/Vol]81 U/JJclbxf55-612Mah [facility] Physician GroupComment on above: Order Comment: FASTING YPerformed By: #### ELDER, PTT, CMP, FE and TIBC, PT, A1C WTH eA, LIPID, MG, [id number], HS TROP, CBC ####[address] [address] USAALT [Catalytic activity/Vol]11 U/L Normal7-52The [facility] Physician GroupComment on above:Order Comment: FASTING Y Performed By: #### ELDER, PTT, CMP, FE and TIBC, PT, A1C WTH eA, LIPID, MG, [id number], HS TROP, CBC ####[address] [address] USAAnion gap [Moles/Vol]9.5 mmol/LNormal6.0-15.0The [facility] Physician GroupComment on above:Order Comment: FASTING YPerformed By: #### ELDER, PTT, CMP, FE and TIBC, PT, A1C WTH eA, LIPID, MG, [id number], HS TROP, CBC ####[place] [id number] USAAST [Catalytic activity/Vol]33 U/GNducyu62-51Iqw [facility] Physician GroupComment on above:Order Comment: FASTING YPerformed By: #### ELDER, PTT, CMP, FE and TIBC, PT, A1C WTH eA, LIPID, MG, [id number], HS TROP, CBC ####[address] [address] USABilirubin [Mass/Vol]0.7 mg/dL Normal0.3-1.0The [facility] Physician GroupComment on above:Order Comment: FASTING YPerformed By: #### ELDER, PTT, CMP, FE and TIBC, PT, A1C WTH eA, LIPID, MG, [id number], HS TROP, CBC ####[place] [id number] USACalcium [Mass/Vol]8.5 mg/dLLow8.6-10.3The [facility] Physician GroupComment on above:Order Comment: FASTING YPerformed By: #### ELDER, PTT, CMP, FE and TIBC, PT, A1C WTH eA, LIPID, MG, [id number], HS TROP, CBC ## ##[address] [address] USAChloride [Moles/Vol]106 mmol/VPkmtjj85-368Foi [facility] Physician GroupComment on above: Order Comment: FASTING YPerformed By: #### ELDER, PTT, CMP, FE and TIBC, PT, A1C WTH eA, LIPID, MG, [id number], HS TROP, CBC ####[place] [id number] USACO2 [Moles/Vol]24.1 mmol/LNormal 21.0-31.0[facility] Physician GroupComment on above:Order Comment: FASTING Y Performed By: #### ELDER, PTT, CMP, FE and TIBC, PT, A1C WTH eA, LIPID, MG, [id number], HS TROP, CBC ####[place] [address] USACreatinine [Mass/Vol]1.05 mg/dLNormal0.70-1.30The [facility] Physician GroupComment on above:Order Comment: FASTING YPerformed By: #### ELDER, PTT, CMP, FE and TIBC, PT, A1C WTH eA, LIPID, MG, [id number], HS TROP, CBC ####[address] Creatinine Clr Calc Hwobylhk62.26NoAsheville Specialty Hospital Physician GroupComment on above:Order Comment: FASTING YPerformed By: #### ELDER, PTT, CMP, FE and TIBC, PT, A1C WTH eA, LIPID, MG, [id number], HS TROP, CBC ####[place] [id number] USAGFR/1.73 sq M.predicted MDRD (S/P/Bld) [Vol rate/Area]mL/min/{1.73_m2}NormalThe Firsthealth Physician GroupComment on above:Order Comment: FASTING YPerformed By: #### ELDER, PTT, CMP, FE and TIBC, PT, A1C WTH eA, LIPID, MG, [id number], HS TROP, CBC ####[place] [id number] [facility] MEXICOGlobulin (S) [Mass/Vol]2.7 g/dLNormal [facility] Physician GroupComment on above:Order Comment: FASTING YPerformed By: #### ELDER, PTT, CMP, FE and TIBC, PT, A1C WTH eA, LIPID, MG, [id number], HS TROP, CBC ####[place] [id number] USAGlucose [Mass/Vol]78 mg/[id number] [facility] Physician GroupComment on above:Order Comment: FASTING YResult Comment: Random Glucose Reference Range is dependent on time and content of last meal. Glucose of more than 200 mg/dL in a nonstressed, ambulatory subject supports the diagnosis of Diabetes Mellitus. ADA recommended reference rangePerformed By: #### ELDER, PTT, CMP, FE and TIBC, PT, A1C WTH eA, LIPID, MG, [id number], HS TROP, CBC ####[place] [address] USAPotassium [Moles/Vol]3.6 mmol/LNormal3.5-5.1The First[facility] Physician GroupComment on above:Order Comment: FASTING YPerformed By: #### ELDER, PTT, CMP, FE and TIBC, PT, A1C WTH eA, LIPID, MG, [id number], HS TROP, CBC ####[place] [id number] USAProtein [Mass/Vol]5.8 g/dLLow6.4-8.9The First[facility] Physician GroupComment on above:Order Comment: FASTING YPerformed By: #### ELDER, PTT, CMP, FE and TIBC, PT, A1C WTH eA, LIPID, MG, [id number], HS TROP, CBC ## ##[place] [id number] USASodium [Moles/Vol]136 mmol/BHlkpxw546-556Zlz Firsthealth Physician GroupComment on above: Order Comment: FASTING YPerformed By: #### ELDER, PTT, CMP, FE and TIBC, PT, A1C WTH eA, LIPID, MG, [id number], HS TROP, CBC ####[place] [id number] USAUrea nitrogen [Mass/Vol]14 mg/dLNormal 7-25The Firsthealth Physician GroupComment on above:Order Comment: FASTING Y Performed By: #### ELDER, PTT, CMP, FE and TIBC, PT, A1C WTH eA, LIPID, MG, [id number], HS TROP, CBC ####[facility] [place] [address] USAFerritin [Mass/volume] in Serum or PlasmaOrdered By: Akash Mccartney on 45-55-1321Wmhcpicv [Mass/Vol]371.5 ng/kRJgtt46.9-336.2 [facility] Brent[facility] HospitalComment on above:Order Comment: FASTING Y Performed By: #### ELDER, PTT, CMP, FE and TIBC, PT, A1C WTH eA, LIPID, MG, [id number], HS TROP, CBC ####[address] [place] [address] USAFolate [Mass/volume] in Serum or PlasmaOrdered By: Akash Mccartney on 14-55-2664Jebeje [Mass/Vol]9.1 ng/mL>5.9[facility] Brentwood HospitalComment on above:Folate reference range: >5.9 ng/mlThe WHO technical consultation on folate and vitamin i52anzbruhjlfzx has determined that folate concentrations lessthan 4 ng/ml are considered deficient.Hemoglobin A1c/Hemoglobin.total in BloodOrdered By: Akash Mccartney on 59-44-0129DxA2f (Bld) [Mass fraction]5.5 %Normal4.3-5.6FMercy Health – The Jewish HospitalComment on above:Increased risk for diabetes: 5.7 - 6.4diabetes: >6.4glycemic control for adults with diabetes: <7.0Result Comment: Increased risk for diabetes: 5.7 - 6.4 diabetes: >6.4 glycemic control for adults with diabetes: <7.0 Performed By: #### ELDER, PTT, CMP, FE and TIBC, PT, A1C WTH eA, LIPID, MG, [id number], HS TROP, CBC ####[address] [place] [address] USAINR in Platelet poor plasma by Coagulation assay Ordered By: Akash Mccartney on 71-63-9824DZZ Coag (PPP) [Relative time]2.5 {INR}NormalSuburban Community Hospital & Brentwood HospitalComment on above:INR Therapeutic Range A) Pre- [...] TIBC, PT, A1C WTH eA, LIPID, MG, [id number], HS TROP, CBC ####[address] [place] [address] USAIron [Mass/volume] in Serum or PlasmaOrdered By: Akash Mccartney on 66-42-8356Xzhi [Mass/Vol]11 ug/bBLbf94-928QgayrzdenSuburban Community Hospital & Brentwood HospitalComment on above:Order Comment: FASTING YPerformed By: #### ELDER, PTT, CMP, FE and TIBC, PT, A1C WTH eA, LIPID, MG, [id number], HS TROP, CBC ####[address] [place] [address] [place] Iron and TIBC Profileon 12-13-2024% Iron Saturation5.4 %But19-19One Firsthealth Physician GroupComment on above:Order Comment: FASTING YPerformed By: #### ELDER, PTT, CMP, FE and TIBC, PT, A1C WTH eA, LIPID, MG, [id number], HS TROP, CBC ## ##[facility] [place] [address] USATotal Iron Binding Qbnzbfsg904 ug/nBBxl726-929Lpy Firsthealth Physician GroupComment on above:Order Comment: FASTING YPerformed By: #### ELDER, PTT, CMP, FE and TIBC, PT, A1C WTH eA, LIPID, MG, [id number], HS TROP, CBC ####[address] [place] [address] USALipid Panelon 52-72-3807JBO Cholesterol,Ritygydshd29 mg/dLNormal0-100The Firsthealth Physician GroupComment on above:Order Comment: FASTING YResult Comment: LDL ATP III CLASSIFICATION LDL less than 100 mg/dL Optimal LDL 100-129 mg/dL Near or above optimal LDL 130-159 mg/dL Borderline high LDL 160-189 mg/dL High LDL greater than 189 mg/dL Very highPerformed By: #### ELDER, PTT, CMP, FE and TIBC, PT, A1C WTH eA, LIPID, MG, [id number], HS TROP, CBC ####[address] [place] [address] USATriglyceride w/Mlwyyv94 mg/dLNormal0-149The Firsthealth Physician GroupComment on above:Order Comment: FASTING YResult Comment: TRIG ATP III CLASSIFICATION TRIG less than 150 mg/dL Normal TRIG 150- 199 mg/dL Borderline high TRIG 200-500 mg/dL High TRIG greater than 500 mg/dL Very high Standard traceable to the Center for Disease Conrtrol and Prevention (CDC) test method.Performed By: #### ELDER, PTT, CMP, FE and TIBC, PT, A1C WTH eA, LIPID, MG, [id number], HS TROP, CBC ####[address] [address] USAVLDL CWXCPWEGEWM73 mg/dLNormalThe Firsthealth Physician GroupComment on above:Order Comment: FASTING YPerformed By: #### ELDER, PTT, CMP, FE and TIBC, PT, A1C WTH eA, LIPID, MG, [id number], HS TROP, CBC ## ##[address] [address] USAMagnesium [Mass/volume] in Serum or PlasmaOrdered By: Akash Mccartney on 12-13-2024 Magnesium [Mass/Vol]1.8 mg/dLLow1.9-2.7FMercy Health – The Jewish HospitalComment on above:Order Comment: FASTING YPerformed By: #### ELDER, PTT, CMP, FE and TIBC, PT, A1C WTH eA, LIPID, MG, [id number], HS TROP, CBC ####[facility] [place] [address] USAPartial Thromboplastin Timeon 91-91-9427jMKN Coag (Bld) [Time]38.9 sHigh25.1-36.5The [facility] Comment on above:Result Comment: A hematocrit value greater than 55% may lead to inaccurate results in coagulation testing. Patients having hematocrit values >55% require a special collection tube for coagulation studies. Please contact the laboratory at [phone] for redraw instructions.PERFORMED BY:[address] [place], [place] [phone] MEDICAL DIRECTORMARY SONI M.D.Performed By: #### ELDER, PTT, CMP, FE and TIBC, PT, A1C WTH eA, LIPID, MG, [id number], HS TROP, CBC ####[address] [place] [address] USAProthrombin time (PT)Ordered By: Akash Mccartney on 26-96-3574FN Coag (PPP) [Time]27.3 sHigh9.0-12.9 [facility] HospitalComment on above:A hematocrit value greater than 55% may lead to inaccurate results in coagulation testing. Patientshaving hematocrit values >55% require a special collection tube for coagulation studies. Please contact the laboratory at [phone] for redraw instructions. Result Comment: A hematocrit value greater than 55% may lead to inaccurate results in coagulation testing. Patients having hematocrit values >55% require a special collection tube for coagulation studies. Please contact the laboratory at [phone] for redraw instructions.Performed By: #### ELDER, PTT, CMP, FE and TIBC, PT, A1C WTH eA, LIPID, MG, [id number], HS TROP, CBC ####[address] [place] [address] USASerum or plasma iron binding capacity measurement (mass/volume)Ordered By: Akash Mccartney on 12-13-2024 Iron binding capacity [Mass/Vol]204 ug/eEWxz391-303EvwwlnvdxSt. Francis Hospitalerum or plasma iron saturation measurement (mass fraction)Ordered By: Akash Mccartney on 73-94-2311Dqhe saturation [Mass fraction]5.4 %Kwj80-58 St. Francis Hospitalerum or plasma total cholesterol/high density lipoprotein (HDL) cholesterol mass ratOrdered By: Akash Mccartney on 20-98-3887Gxhxdldkxzw.total/Cholesterol in HDL [Mass ratio]2.1 {ratio}Normal<5.0 [facility] HospitalComment on above:Order Comment: FASTING YResult Comment: PERFORMED BY:[address] [place], [place] [phone] MEDICAL DIRECTORMARY SONI M.D.Performed By: #### ELDER, PTT, CMP, FE and TIBC, PT, A1C WTH eA, LIPID, MG, [id number], HS TROP, CBC ####[address] [address] USATransferrin [Mass/volume] in Serum or PlasmaOrdered By: Akash Mccartney on 13-40-0723Zmznlxvxmlt [Mass/Vol]146 mg/fYOtl936-574SwzxyrcifSuburban Community Hospital & Brentwood HospitalComment on above:Order Comment: FASTING YPerformed By: #### ELDER, PTT, CMP, FE and TIBC, PT, A1C WTH eA, LIPID, MG, [id number], HS TROP, CBC ## ##[address] [address] [place] Triglyceride [Mass/volume] in Serum or PlasmaOrdered By: Akash Mccartney on 38-36-2511Bfkvkpesopof [Mass/Vol]57 mg/dL0-149[facility] Comment on above:TRIG ATP III CLASSIFICATIONTRIG less than 150 mg/dL NormalTRIG 150-199 mg/dL Borderline highTRIG 200-500 mg/dL High TRIG greater than 500 mg/dL Very highStandard traceable to the Center for Disease Conrtrol and Prevention (CDC) test method.Troponin I High Sensitivityon 25-12-6730Mlmrdkqp I High Lykvfrqzahj90Vuodwq1-00Ulh Firsthealth Physician GroupComment on above:Result Comment: The Troponin units of report have been changed to meet the Chest Pain Accreditationrequirement, element EC5.M1l2. Troponin units are changed from pg/ml to ng/L. Also, the decimal is removed and results are in whole numbers.PERFORMED BY:[address] GOLDSTEINDaneAMEENASEATT[place], [place] [phone] MEDICAL DIRECTORMARY SONI M.D.Performed By: #### ELDER, PTT, CMP, FE and TIBC, PT, A1C WTH eA, LIPID, MG, [id number], HS TROP, CBC ####[address] [address] USATroponin I.cardiac [Mass/volume] in Serum or Plasma by Detection limit <= 0.01 ng/mLOrdered By: Akash Mccartney on 07-85-5305Eqycymmp I.cardiac DL <= 0.01 ng/mL [Mass/Vol]10 ng/L0-[facility] HospitalComment on above:The Troponin units of report have been changed to meet the Chest Pain Accreditation requirement, element EC5.M1l2. Troponin units are changed from pg/ml to ng/L. Also, the decimal is removed and results are in whole numbers. Vit. B12/Folate Profileon 14-39-4605Fkjmfn3.1 ng/mLNormal>5.9The Firsthealth Physician GroupComment on above:Order Comment: FASTING YResult Comment: Folate reference range: >5.9 ng/ml The WHO technical consultation on folate and vitamin b12 deficiencies has determined that folate concentrations less than 4 ng/ml are considered deficient.PERFORMED BY:[address] [place], [place] [phone] MEDICAL DIRECTORMARY SONI M.D.Performed By: #### ELDER, PTT, CMP, FE and TIBC, PT, A1C WTH eA, LIPID, MG, [id number], HS TROP, CBC ####[facility] [place] [address] USAVitamin B12 ser/plasOrdered By: Akash Mccartney on 63-74-3716Kvakaobkk (Vitamin B12) [Mass/Vol]506 pg/uDVkeuns893-269GjqrfupxrSuburban Community Hospital & Brentwood HospitalComment on above:Order Comment: FASTING YPerformed By: #### ELDER, PTT, CMP, FE and TIBC, PT, A1C WTH eA, LIPID, MG, [id number], HS TROP, CBC ####[address] [place] [id number] [facility] aPTT in Platelet poor plasma by Coagulation assayOrdered By: Akash Mccartney on 55-71-1989iBGZ Coag (PPP) [Time]38.9 sHigh25.1-36.5FMercy Health – The Jewish HospitalComment on above:A hematocrit value greater than 55% may lead to inaccurate results in coagulation testing. Patientshaving hematocrit values >55% require a special collection tube for coagulation studies. Please contact the laboratory at [phone] for redraw instructions.Alanine aminotransferase [Enzymatic activity/volume] in Serum or PlasmaOrdered By: Sree Thao on 04-44-5533SPR [Catalytic activity/Vol]14 U/LNormal7-52[facility] HospitalComment on above:Performed By: #### HS TROP, PTT, PT, CBC, CMP ####[facility] [place] [address] USAAlbumin [Mass/volume] in Serum or Plasma by Bromocresol green (BCG) dye binding metho Ordered By: Sree Thao on 44-49-7284Kfjixtj BCG dye [Mass/Vol]3.7 g/dL 3.5-5.7FMercy Health – The Jewish HospitalAlkaline phosphatase [Enzymatic activity/volume] in Serum or PlasmaOrdered By: Sree Thao on 12-12-2024 ALP [Catalytic activity/Vol]98 U/RGctdno60-761ZrzybubpdSuburban Community Hospital & [facility] Comment on above:Performed By: #### HS TROP, PTT, PT, CBC, CMP ####[address] [place] [address] USAAppearance of Urine Ordered By: Sree Thao on 43-15-4114Qrvcnepvxx (U)ClearNormalClear [facility] HospitalComment on above:Order Comment: Name Collection Type:: Chou CatheterPerformed By: #### CUU, ADDONUAPLUS ####[address] [place], [place] USAAspartate aminotransferase [Enzymatic activity/volume] in Serum or PlasmaOrdered By: Sree Thao on 58-20-5239AOE [Catalytic activity/Vol]49 U/QNers07-59ZqcfpmzlfSuburban Community Hospital & Brentwood HospitalComment on above:Performed By: #### HS TROP, PTT, PT, CBC, CMP ####[address] [place] [address] USABNP ser/plasOrdered By: Sree Thao on 10-89-8445Sslnteyygnq peptide B (Bld) [Mass/Vol]114.0 pg/mLHigh5-100[facility] HospitalComment on above: Order Comment: ADDED ON TO PREVIOUS REQUISITION PER EDILMA IN [place] Comment: PERFORMED BY:[place] [address] [place], [place] [phone] MEDICAL MARY KATE SONI M.D.Performed By: #### BNP ####[address] [address] USABacteria [Presence] in Urine by AutomatedOrdered By: Sree Thao on 56-80-1811Uvnatxcb Auto Ql (U)Rare [HPF]None [facility] HospitalBasophils [#/volume] in Blood by Automated countOrdered By: Sree Thao on 24-13-0718Ljinatmkl (Bld) [#/Vol]0.0 10*3/uLNormal0.0-0.2FMercy Health – The Jewish HospitalComment on above:Result Comment: PERFORMED BY:[address] [place], [place] [phone] MEDICAL DIRECTORMARIO S NAE M.D.Performed By: #### HS TROP, PTT, PT, CBC, CMP ####[place] [address] [place] Basophils/100 leukocytes in Blood by Automated countOrdered By: Sree Thao on 97-93-9142Sorxdabdu/100 WBC (Bld)0.6 %Normal.[facility] Brent[facility] HospitalComment on above:Performed By: #### HS TROP, PTT, PT, CBC, CMP ####[place] [address] [facility] Bilirubin Test strip Ql (U)Ordered By: Sree Thao on 55-18-0187Ekpnuryje Ql (U)NegativeNegativeSuburban Community Hospital & Brentwood HospitalBilirubin.total [Mass/volume] in Serum or PlasmaOrdered By: Sree Thao on 12-12-2024 Bilirubin [Mass/Vol]0.9 mg/dLNormal0.3-1.0[facility] Comment on above:Performed By: #### HS TROP, PTT, PT, CBC, CMP ####[place] [address] USACT cervical spine wo conon 45-43-9376GA cervical spine wo conNormalThe [facility] Phys[facility] Group Calcium [Mass/volume] in Serum or PlasmaOrdered By: Sree Thao on 53-53-4830Cbyuxke [Mass/Vol]9.1 mg/dLNormal8.6-10.3FMercy Health – The Jewish HospitalComment on above:Performed By: #### HS TROP, PTT, PT, CBC, CMP ####[place] [address] USACarbon dioxide, total [Moles/volume] in Serum or PlasmaOrdered By: Sree Thao on 24-27-3450KT4 [Moles/Vol]26.4 mmol/GVhjbrz66.0-31.0[facility] HospitalComment on above:Performed By: #### HS TROP, PTT, PT, CBC, CMP ####[place] [address] [place] Chloride [Moles/volume] in Serum or PlasmaOrdered By: Sree Thao on 15-17-5177Nyefjqxv [Moles/Vol]102 mmol/PKwvppp40-279YgtbgfqzfSuburban Community Hospital & Brentwood HospitalComment on above:Performed By: #### HS TROP, PTT, PT, CBC, CMP ####[address] [address] USAColor of Urine by AutoOrdered By: Sree Master on 18-22-9648Ljmzh (U)Colorless NormalYellowSuburban Community Hospital & Brentwood HospitalComment on above:Order Comment: Name Collection Type:: Chou CatheterPerformed By: #### CUU, ADDONUAPLUS ####[address] USAComplete Blood Count Auto Diffon 85-29-5168Lzzf Corpuscular HGB Conc32.5 g/dLNormal 32.5-35.6The Firsthealth Physician GroupComment on above:Performed By: #### HS TROP, PTT, PT, CBC, CMP ####[address] [address] USAMonocytes/100 WBC (Bld)18.74 %Normal0.00-20.00The Firsthealth Physician GroupComment on above:Performed By: #### HS TROP, PTT, PT, CBC, CMP ####[address] [address] USANRBC% 0.3 /100{WBC}Normal0-0.5The [facility]ician [facility]aird HospitalComment on above:Performed By: #### HS TROP, PTT, PT, CBC, CMP ####[address] [address] USAWhite Blood Count5.0 [CFU]/mLNormal4.1-10.5The [facility]ician Laird HospitalComment on above:Performed By: #### HS TROP, PTT, PT, CBC, CMP ####[address] [address] USAComprehensive Metabolic Panelon 62-61-2343Tnftrpo [Mass/Vol]3.7 g/dLNormal 3.5-5.7The Firsthealth Physician GroupComment on above:Performed By: #### HS TROP, PTT, PT, CBC, CMP ####[address] [place] [address] USACreatinine Clr Calc Dzzzcexc85.45NoAsheville Specialty Hospital Physician Group Comment on above:Result Comment: PERFORMED BY:[address] [place], [place] [phone] MEDICAL DIRECTORMARY SONI M.D.Performed By: #### HS TROP, PTT, PT, CBC, CMP ####[address] [address] [place] GFR/1.73 sq M.predicted MDRD (S/P/Bld) [Vol rate/Area]mL/min/{1.73_m2}NormalThe Firsthealth Physician GroupComment on above:Performed By: #### HS TROP, PTT, PT, CBC, CMP ####[address] [address] USACreatinine [Mass/volume] in Serum or PlasmaOrdered By: Sree Thao on 18-49-0449Hjnocjtcff [Mass/Vol]1.09 mg/dLNormal0.70-1.30[facility] HospitalComment on above:Performed By: #### HS TROP, PTT, PT, CBC, CMP ####[address] [address] [place] Dipstick and Microscopicon 90-99-8586Gnwtwgtx,UrineRareNormalNone SeenThe Firsthealth Physician GroupComment on above:Order Comment: Name Collection Type:: Chou CatheterPerformed By: #### CUU, ADDONUAPLUS ####[address] USABilirubin,UrineNegativeNormalNegative The Firsthealth Physician GroupComment on above:Order Comment: Name Collection Type:: Chou CatheterPerformed By: #### CUU, ADDONUAPLUS ####[address] USAGlucose Ql (U)NormalNormal NormalThe Firsthealth Physician GroupComment on above:Order Comment: Name Collection Type:: Chou CatheterPerformed By: #### CUU, ADDONUAPLUS ####[address] USAHyaline Casts,Xebjo7-3Gvqwra1-9Vlf [facility] Physician GroupComment on above:Order Comment: Name Collection Type:: Chou CatheterPerformed By: #### CUU, ADDONUAPLUS ####[address] USAMucus,UrineRareNormalThe Firsthealth Physician GroupComment on above:Order Comment: Name Collection Type:: Chou CatheterResult Comment: PERFORMED BY:[address] GOLDSTEINDaneAMEENA, [place] [phone] MEDICAL MARY KATE SONI M.D.Performed By: #### CUU, ADDONUAPLUS ####[address] USANitrite,UrineNegativeNormalNegativeThe Firsthealth Physician GroupComment on above:Order Comment: Name Collection Type:: Chou CatheterPerformed By: #### CUU, ADDONUAPLUS ####[address] [address] USAOccult Blood,Urine1+NormalNegativeThe Firsthealth Physician GroupComment on above:Order Comment: Name Collection Type:: Chou CatheterResult Comment: PERFORMED BY:[address] [place]STE[place]aneAM[place], [place] [phone] MEDICAL MARY KATE SONI M.D.Performed By: #### CUU, ADDONUAPLUS ####[address] USAProtein,UrineNegativeNormalNegativeThe Firsthealth Physician GroupComment on above:Order Comment: Name Collection Type:: Chou CatheterPerformed By: #### CUU, ADDONUAPLUS ####[address] USARBC,Nxzzj0-6Diajfq8-4Gzw [facility] Physician GroupComment on above:Order Comment: Name Collection Type:: Chou CatheterPerformed By: #### CUU, ADDONUAPLUS ####[address] USASpecificy [place],Urine1.004Normal 1.001-1.030The Firsthealth Physician GroupComment on above:Order Comment: Name Collection Type:: Chou CatheterPerformed By: #### CUU, ADDONUAPLUS ####[address] [place] Urobilinogen,UrineNormalNormalNormAdventHealth Wauchula Physician GroupComment on above:Order Comment: Name Collection Type:: Chou CatheterPerformed By: #### CUU, ADDONUAPLUS ####[address] [address] USAWBC,Kgrft43-13Phyqvi8-3Krr [facility] Physician GroupComment on above: Order Comment: Name Collection Type:: Chou CatheterPerformed By: #### CUU, ADDONUAPLUS ####[address] USAECG 12 lead ECGon 34-97-5365DZA 12 lead ECGPipestone County Medical CenterEosinophils [#/volume] in Blood by Automated countOrdered By: Sree Thao on 72-21-1281Gokcvthsdua (Bld) [#/Vol]0.2 10*3/uLNormal0.0-0.45[facility] HospitalComment on above:Performed By: #### HS TROP, PTT, PT, CBC, CMP ####[address] [address] USAEosinophils/100 leukocytes in Blood by Automated countOrdered By: Sree Thao on 68-79-0270Seyhqouexxm/100 WBC (Bld)4.4 %Normal.[facility] HospitalComment on above:Performed By: #### HS TROP, PTT, PT, CBC, CMP ####[address] [address] [place] Epithelial cells.squamous [#/area] in Urine sediment by Automated countOrdered By: Sree Thao on 97-93-2887Filxugfazc cells.squamous Auto (Urine sed) [#/Area]N/AFMercy Health – The Jewish HospitalErythrocyte distribution width [Ratio] by Automated countOrdered By: Sree Thao on 73-11-6863Ffzoddkcmol distribution width (RBC) [Ratio]18.4 %High12.0-14.8[facility] HospitalComment on above:Performed By: #### HS TROP, PTT, PT, CBC, CMP ####[facility] [address] Erythrocytes [#/area] in Urine sediment by Automated countOrdered By: Sree Thao on 43-98-1474KHF Auto (Urine sed) [#/Area]1-2 [HPF]0-4FMercy Health – The Jewish HospitalErythrocytes [#/volume] in Blood by Automated countOrdered By: Sree Thao on 25-88-1937PYR (Bld) [#/Vol]3.34 10*6/uLLow3.90-5.60 [facility] HospitalComment on above:Performed By: #### HS TROP, PTT, PT, CBC, CMP ####[facility] Mic[address] [address] StreetGlomerular filtration rate [Volume Rate/Area] in Serum, Plasma or Blood by CreatinineOrdered By: Sree Thao on 71-46-1227Ozrgmtczhq filtration rate [Volume Rate/Area] in Serum, Plasma or Blood by Creatinine> 60.0 mL/MinSuburban Community Hospital & Brentwood HospitalGlucose [Mass/volume] in Serum or Plasma Ordered By: Sree Thao on 89-20-8505Bezxtcs [Mass/Vol]121 mg/iIOlcr44-906 [facility] Brentwood HospitalComment on above:ADA recommended reference rangeRandom Glucose [...] #### HS TROP, PTT, PT, CBC, CMP ####[address] [place] [id number] USAGlucose [Mass/volume] in Urine by Test stripOrdered By: Sree Thao on 17-93-9723Rtfznqn Test strip (U) [Mass/Vol]Normal mg/dLNormal [facility] & Brentwood HospitalHematocrit [Volume Fraction] of Blood by Automated countOrdered By: Sree Thao on 57-75-9237Raanshjtyy (Bld) [Volume fraction]29.7 %Low38.8-50.0[facility] HospitalComment on above:Performed By: #### HS TROP, PTT, PT, CBC, CMP ####[place] [address] USAHemoglobin Test strip Ql (U) Ordered By: Sree Thao on 62-46-2577Ovtvdatlkl Ql (U)1+HighNegative [facility] & Brentwood HospitalHemoglobin [Mass/volume] in BloodOrdered By: Sree Thao on 95-17-9987Dyxpafpnvd (Bld) [Mass/Vol]9.6 g/dLLow13.0-17.0 [facility] HospitalComment on above:Performed By: #### HS TROP, PTT, PT, CBC, CMP ####[place] [address] USAHyaline casts [#/area] in Urine sediment by Automated countOrdered By: Sree Thao on 73-26-6611Llrbtqg casts Auto (Urine sed) [#/Area]0-8 [LPF]0-8[facility] & Brentwood HospitalINR in Platelet poor plasma by Coagulation assayOrdered By: Sree Thao on 11-78-4923FHE Coag (PPP) [Relative time]2.6 {INR}NormalSuburban Community Hospital & Brentwood HospitalComment on above: INR Therapeutic Range A) [...] #### HS TROP, PTT, PT, CBC, CMP ####[facility] [address] [place] [address] USAKetones [Presence] in Urine by Test stripOrdered By: Sree Thao on 34-31-1577Ddcoeee Ql (U) NegativeNormalNegativeSuburban Community Hospital & Brentwood HospitalComment on above:Order Comment: Name Collection Type:: Chou CatheterPerformed By: #### CUU, ADDONUAPLUS ####[address] [facility], [id number] USALeukocyte esterase [Presence] in Urine by Test stripOrdered By: Sree Thao on 69-90-7313Pzkawehsj esterase Test strip Ql (U)2+NormalNegative [facility] Brent[facility] HospitalComment on above:Order Comment: Name Collection Type:: Chou CatheterPerformed By: #### CUU, ADDONUAPLUS ####[address] [facility], [place] USALeukocytes [#/area] in Urine sediment by Automated countOrdered By: Sree Thao on 33-51-3623POG Auto (Urine sed) [#/Area]10-19 [HPF]High0-4FMercy Health – The Jewish Hospital Leukocytes [#/volume] corrected for nucleated erythrocytes in Blood by Automated counOrdered By: Sree Thao on 38-94-3991EWY corrected for nucl RBC Auto (Bld) [#/Vol]5.0 10*3/uL4.1-10.5FMercy Health – The Jewish HospitalLeukocytes [#/volume] in Blood by Automated countOrdered By: Sree Thao on 52-98-6260CDD (Bld) [#/Vol]5.0 10*3/uLNormal4.1-10.5FMercy Health – The Jewish HospitalComment on above:Performed By: #### HS TROP, PTT, PT, CBC, CMP ####[address] Lymphocytes [#/volume] in Blood by Automated countOrdered By: Sree Thao on 55-23-5154Cbawwrmbzwg (Bld) [#/Vol]0.8 10*3/uLLow1.00-4.8[facility] Brentwood HospitalComment on above:Performed By: #### HS TROP, PTT, PT, CBC, CMP ####[address] Lymphocytes/100 leukocytes in Blood by Automated countOrdered By: Sree Thao on 66-40-6432Bobxwztvols/100 WBC (Bld)15.9 %Normal.[facility] & Brentwood HospitalComment on above:Performed By: #### HS TROP, PTT, PT, CBC, CMP ####[place] [id number] [facility] [place] [Entitic mass] by Automated countOrdered By: Sree Thao on 55-78-1075JQJ (RBC) [Entitic mass]28.8 qqIevqei72.5-35.2FMercy Health – The Jewish Hospital Comment on above:Performed By: #### HS TROP, PTT, PT, CBC, CMP ####[place] [address] [facility] Auto (RBC) [Mass/Vol]Ordered By: Sree Thao on 05-04-4367GLAQ (RBC) [Mass/Vol]32.5 g/dL32.5-35.6FGalion HospitalV [Entitic volume] by Automated countOrdered By: Sree Thao on 23-58-8140WPE (RBC) [Entitic vol]88.7 fL Leqodu20.5-101[facility] Brentwood HospitalComment on above:Performed By: #### HS TROP, PTT, PT, CBC, CMP ####[place] [address] USAMonocyte distribution width [Entitic volume] in Blood by AutomatedOrdered By: Sree Thao on 67-15-5104Vvjkbweg distribution width Auto (Bld) [Entitic vol]18.74 %0.00-20.00[facility] Brentwood HospitalMonocytes [#/volume] in Blood by Automated countOrdered By: Sree Thao on 88-18-6557Ksmndvavx (Bld) [#/Vol]0.4 10*3/uLNormal0.0-0.8 [facility] Brentwood HospitalComment on above:Performed By: #### HS TROP, PTT, PT, CBC, CMP ####[place] [address] USAMonocytes/100 leukocytes in Blood by Automated countOrdered By: Sree Thao on 19-88-1915Lxdtxeaxf/100 WBC (Bld)7.5 %Normal.[facility] Brentwood HospitalComment on above:Performed By: #### HS TROP, PTT, PT, CBC, CMP ####[place] [address] USAMucus [Presence] in Urine by AutomatedOrdered By: Sree Thao on 42-44-8049Lpyii Auto Ql (U)Rare [LPF][facility] Neutrophils [#/volume] in Blood by Automated countOrdered By: Sree Thao on 83-37-1651Eevvvhlaqep (Bld) [#/Vol]3.5 10*3/uLNormal1.8-7.7FMercy Health – The Jewish HospitalComment on above:Performed By: #### HS TROP, PTT, PT, CBC, CMP ####[address] [address] [place] Neutrophils/100 leukocytes in Blood by Automated countOrdered By: Sree Thao on 20-40-8543Egfybttcnig/100 WBC (Bld)71.6 %Normal.[facility] Brentwood HospitalComment on above:Performed By: #### HS TROP, PTT, PT, CBC, CMP ####[address] [address] USANitrite Test strip Ql (U)Ordered By: Sree Thao on 38-01-1497Wsrneql Ql (U) NegativeNegativeSuburban Community Hospital & Brentwood HospitalNo Panel InformationOrdered By: Sree Thao on 55-39-5803Zpbtmgbx Creatinine Clearance (Chem51.45 [facility] Brentwood HospitalNucleated erythrocytes [Presence] in Blood by Automated countOrdered By: Sree Thao on 51-01-6828Dchbqjnkg RBC Auto Ql (Bld)0.3 /100{WBC}0-0.5FMercy Health – The Jewish HospitalPartial Thromboplastin Timeon 91-75-6168bQRH Coag (Bld) [Time]38.4 sHigh25.1-36.5The Firsthealth Physician GroupComment on above:Result Comment: A hematocrit value greater than 55% may lead to inaccurate results in coagulation testing. Patients having hematocrit values >55% require a special collection tube for coagulation s tudies. Please contact the laboratory at [phone] for redraw instructions.PERFORMED BY:[address] [place], [place] [phone] MEDICAL DIRECTORMARY SONI M.D.Performed By: #### HS TROP, PTT, PT, CBC, CMP ####[address] [address] USAPlatelet mean volume [Entitic volume] in Blood by Automated countOrdered By: Sree Thao on 12-49-8347Bnbdzody mean volume (Bld) [Entitic vol]7.8 fLNormal6.6-10.1FMercy Health – The Jewish HospitalComment on above:Performed By: #### HS TROP, PTT, PT, CBC, CMP ####[address] [address] [place] Platelets [#/volume] in Blood by Automated countOrdered By: Sree Thao on 13-83-6355Umdrmbpjq (Bld) [#/Vol]229 10*3/nTUacnam322-018WlbueryliSuburban Community Hospital & Brentwood HospitalComment on above:Performed By: #### HS TROP, PTT, PT, CBC, CMP ####[address] [address] [place] Potassium [Moles/volume] in Serum or PlasmaOrdered By: Sree Thao on 40-40-6983Uwvqtfuls [Moles/Vol]3.6 mmol/LNormal3.5-5.1FMercy Health – The Jewish HospitalComment on above:Hemolysis is present at a level that could interfere with the result.Contact lab if redraw is requiredResult Comment: Hemolysis is present at a level that could interfere with the result. Contact lab if redraw is requiredPerformed By: #### HS TROP, PTT, PT, CBC, CMP ####[place] [address] [place] [address] USAProtein Test strip (U) [Mass/Vol]Ordered By: Sree Thao on 81-24-5270Lnpeuix (U) [Mass/Vol] NegativeNegativeSuburban Community Hospital & Brentwood HospitalProtein [Mass/volume] in Serum or PlasmaOrdered By: Sree Thao on 76-24-9989Nzfronm [Mass/Vol]6.9 g/dL Normal6.4-8.9[facility] & Brentwood HospitalComkresge eye institute on above:Performed By: #### HS TROP, PTT, PT, CBC, CMP ####[address] [address] USAProthrombin time (PT)Ordered By: Sree Thao on 71-61-3020FP Coag (PPP) [Time]28.3 sHigh9.0-12.9[facility] Brentwood HospitalComment on above:A hematocrit value greater than 55% may lead to inaccurate results in coagulation testing. Patientshaving hematocrit values >55% require a special collection tube for coagulation studies. Please contact the laboratory at [phone] for redraw instructions.Result Comment: A hematocrit value greater than 55% may lead to inaccurate results in coagulation testing. Patients having hematocrit values >55% require a special collection tube for coagulation studies. Please contact the laboratory at [phone] for redraw instructions.Performed By: #### HS TROP, PTT, PT, CBC, CMP ####[facility] [place] [address] USASerum globulin measurement by calculation (mass/volume)Ordered By: Sree Thao on 44-12-5089Rvscuvfn (S) [Mass/Vol]3.2 g/dLNormalSuburban Community Hospital & [facility] Comment on above:Performed By: #### HS TROP, PTT, PT, CBC, CMP ####[address] [address] USASerum or plasma albumin/globulin mass ratioOrdered By: Sree Thao on 12-12-2024 Albumin/Globulin [Mass ratio]1.2 {ratio}NormalSuburban Community Hospital & [facility] Comment on above:Performed By: #### HS TROP, PTT, PT, CBC, CMP ####[address] [address] USASerum or plasma anion gap determinationOrdered By: Sree Thao on 91-90-2018Eohbp gap [Moles/Vol]11.2 mmol/LNormal6.0-15.0[facility]wood HospitalComment on above:Performed By: #### HS TROP, PTT, PT, CBC, CMP ####[address] [address] USASodium [Moles/volume] in Serum or PlasmaOrdered By: Sree Thao on 73-15-3367Dvbalr [Moles/Vol]136 mmol/BVjyixj885-567VxntxevkaSuburban Community Hospital & Brentwood HospitalComment on above:Performed By: #### HS TROP, PTT, PT, CBC, CMP ####[address] [address] USASpecific gravity Test strip (U) [Rel density] Ordered By: Sree Thao on 79-08-8985Plhaoher gravity (U) [Rel density] 1.0041.001-1.030[facility] Brentwood HospitalTroponin I High Sensitivityon 99-99-6180Eilgvhph I High Fjkwqpwhlug63Kxafrt2-34Xph [facility] Comment on above:Result Comment: The Troponin units of report have been changed to meet the Chest Pain Accreditationrequirement, element EC5.M1l2. Troponin units are changed from pg/ml to ng/L. Also, the decimal is removed and results are in whole numbers.PERFORMED BY:[address] [place], [place] [phone] MEDICAL DIRECTORMARY SONI M.D.Performed By: #### HS TROP, PTT, PT, CBC, CMP ####[facility] [place] [address] USATroponin I.cardiac [Mass/volume] in Serum or Plasma by Detection limit <= 0.01 ng/mLOrdered By: Sree Thao on 53-36-3618Zbxzjgvy I.cardiac DL <= 0.01 ng/mL [Mass/Vol]10 ng/L0-20[facility] HospitalComment on above:The Troponin units of report have been changed to meet the Chest Pain Accreditation requirement, element EC5.M1l2. Troponin units are changed from pg/ml to ng/L. Also, the decimal is removed and results are in whole numbers.Urea nitrogen [Mass/volume] in Serum or Plasma Ordered By: Sree Thao on 51-80-9887Iqeu nitrogen [Mass/Vol]16 mg/dL Normal7-[facility] & Brentwood HospitalComment on above:Performed By: #### HS TROP, PTT, PT, CBC, CMP ####[facility] [place] [address] USAUrine Cultureon 53-29-8584Ffixvhie identified Cx Nom (U)NormalThe Firsthealth Physician GroupComment on above:Performed By: #### CUU, ADDONUAPLUS ####[address] USAUrine cultureOrdered By: Sree Thao on 36-69-9689Begeyvnr identified Cx Nom (U)Klebsiella pneumoniae (ESBL)AbnormalSuburban Community Hospital & [facility] Hospital Urobilinogen Test strip (U) [Mass/Vol]Ordered By: Sree Thao on 93-37-8960Xtudntbthckn (U) [Mass/Vol]Normal mg/dLNormalSuburban Community Hospital & Brentwood HospitalX-ray reportOrdered By: Shaquille Mahoney on 69-10-3734Qeulw report [facility] [address] [place] [address] [place] [address] XRay Report Signed Patient: Tavo Wallis Carson Murray MR# : [id number] : 1940 Acct:[id number] Age/Sex: 84 / M ADM Date: 5 Loc: ER Room: Type: [facility] ER Attending Dr: Copies to: [...] Mahoney M.D. 12/12/2024 1:46 PM Dictation Location: [place] [address] Transcribed By: [facility] 12/12/24 1346 Dictated By: Shaquille Mahoney II, MD 12/12/24 1342 Signed By: 12/12/24 1346 [facility] Work Phone: Study reportSuburban Community Hospital & [facility] Work Phone: XR chest 2V*on 55-29-2805QT chest 2V*NormalThe Firsthealth Physician GroupaPTT in Platelet poor plasma by Coagulation assay Ordered By: Sree Thao on 20-52-8798sLJQ Coag (PPP) [Time]38.4 sHigh 25.1-36.5FMercy Health – The Jewish HospitalComment on above:A hematocrit value greater than 55% may lead to inaccurate results in coagulation testing. Patients having hematocrit values >55% require a special collection tube for coagulation studies. Please contact the laboratory at [phone] for redraw instructions. pH of Urine by Test stripOrdered By: Sree Thao on 41-63-2873nR (U)5.5 [pH]Normal5.0-9.0[facility] Brentwood HospitalComment on above:Order Comment: Name Collection Type:: Chou CatheterPerformed By: #### CUU, ADDONUAPLUS ####[facility] [address] [place], [place] [facility] S[facility] NEW MEXICOMR lumbar spine wo/w conon 20-19-0226WT lumbar spine wo/w conNormalThe Firsthealth Physician GroupMagnetic resonance imaging reportOrdered By: Shaquille Mahoney on 43-81-3551Cbsom reportMEMORIAL HOSPITAL [address] [place] [address] [place] [address] MRI Report Signed Patient: Tavo Wallis Jr MR# : [id number] : 1940 Acct:[id number] Age/Sex: 84 / M ADM Date: 5 Loc: MR Room: Type: [facility] Attending Dr: Keely Montoya APRN Copies to: [...] Mahoney M.D. 12/04/2024 1:30 PM Dictation Location: [place] [address] Transcribed By: NOLVIA 12/04/24 1330 Dictated By: Shaquille Mahoney II, MD 12/04/24 1323 Signed By: 12/04/24 1330 [facility] Work Phone: ct head/brain wo conon 03-45-0242IL head/brain wo con NormalThe Firsthealth Physician GroupCT lumbar spine wo conon 62-19-5107GC lumbar spine wo conNormalThe Firsthealth Physician GroupX-ray reportOrdered By: Esa Cardoso on 75-38-3471Ywcpm reportMEMORIAL [facility] [place] [address] [place], [place] [address] XRay Report Signed Patient: Tavo Wallis Jr MR# : [id number] : 1940 Acct:[id number] Age/Sex: 84 / M ADM Date: 5 Loc: CT Room: Type: [facility] Attending Dr: Jovany Stovall MD Copies to: [...] Cardoso M.D. 10/31/2024 5:40 PM Dictation Location: [facility] Transcribed By: [facility] 10/31/241739 Dictated By: Esa Cardoso DO 10/31/241734 Signed By: 10/31/241739 [facility] Brentwood HospitalXR lumbar spine 6V w bendingon 26-15-7787KG lumbar spine 6V w bendingNoAsheville Specialty Hospital Physician GroupBasic Metabolic Panelon 56-63-6348Idyylfbjhi Clr Calc Epsyhqdm99.92NoAsheville Specialty Hospital Physician GroupComment on above:Performed By: #### GOMEZ DOMINGUEZ, MG ####[address] [address] USAGFR/1.73 sq M.predicted MDRD (S/P/Bld) [Vol rate/Area]55.532 mL/min/{1.73_m2}NormalThe Firsthealth Physician GroupComment on above:Performed By: #### GOMEZ DOMINGUEZ, MG ####[address] [address] USACalcium [Mass/volume] in Serum or PlasmaOrdered By: Franck Gagnon on 88-55-1208Uklvvuz [Mass/Vol]8.6 mg/dL Normal8.6-10.3FMercy Health – The Jewish HospitalComment on above:Performed By: #### GOMEZ DOMINGUEZ, MG ####[address] [address] USACarbon dioxide, total [Moles/volume] in Serum or PlasmaOrdered By: Franck Gagnon on 69-52-8233XH6 [Moles/Vol]27.5 mmol/OZukcso91.0-31.0[facility] Brentwood HospitalComment on above:Performed By: #### GOMEZ DOMINGUEZ, MG ####[address] [address] [place] Chloride [Moles/volume] in Serum or PlasmaOrdered By: Franck Gagnon on 10-08-2024 Chloride [Moles/Vol]98 mmol/TCwbzlr69-613WkvjzuclsSuburban Community Hospital & [facility] Comment on above:Performed By: #### GOMEZ DOMINGUEZ, MG ####[address] [address] USACreatinine [Mass/volume] in Serum or PlasmaOrdered By: Franck Gagnon on 20-76-6504Qpxtrkfbwm [Mass/Vol]1.28 mg/dLNormal0.70-1.30[facility] HospitalComment on above:Performed By: #### GOMEZ DOMINGUEZ, MG ####[address] [address] USAErythrocyte distribution width [Ratio] by Automated countOrdered By: Franck Gagnon on 30-87-8124Uwalfcoxyob distribution width (RBC) [Ratio]17.7 %High12.0-14.8[facility] Brentwood HospitalComment on above: Performed By: #### GOMEZ DOMINGUEZ MG ####[facility] [place] [address] USAErythrocytes [#/volume] in Blood by Automated count Ordered By: Franck Gagnon on 20-49-8525GQD (Bld) [#/Vol]2.63 10*6/uLLow3.90-5.60 [facility] Brentwood HospitalComment on above:Performed By: #### GOMEZ DOMINGUEZ MG ####[place] [address] [place] [address] [place] Glucose [Mass/volume] in Serum or PlasmaOrdered By: Franck Gagnon on 10-08-2024 Glucose [Mass/Vol]95 mg/tESeweda34-375ZlftteunmSuburban Community Hospital & Brentwood HospitalComment on above:ADA recommended reference rangeRandom Glucose [...] reference rangePerformed By: #### GOMEZ DOMINGUEZ MG ####[place] [address] [place] [address] USAHematocrit [Volume Fraction] of Blood by Automated countOrdered By: Franck Gagnon on 27-22-6515Nlycesswuv (Bld) [Volume fraction]24.1 %Low38.8-50.0[facility] Brentwood HospitalComment on above: Performed By: #### GOMEZ DOMINGUEZ MG ####[place] [address] [place] [address] USAHemoglobin [Mass/volume] in BloodOrdered By: Franck Gagnon on 68-71-4242Rbrhayafej (Bld) [Mass/Vol]8.0 g/dLLow13.0-17.0[facility] Brentwood HospitalComment on above:Performed By: #### GOMZE DOMINGUEZ MG ####[place] [address] Hemogram CBC Without Diffon 13-15-3273Okgf Corpuscular HGB Conc33.2 g/dLNormal 32.5-35.6The Firsthealth Physician GroupComment on above:Performed By: #### GOMEZ DOMINGUEZ, MG ####[place] [address]White Blood Count6.0 [CFU]/mLNormal4.1-10.5The [facility] Comment on above:Performed By: #### GOMEZ DOMINGUEZ MG ####[address] StreetLeukocytes [#/volume] corrected for nucleated erythrocytes in Blood by Automated counOrdered By: Franck Gagnon on 20-99-3350LZW corrected for nucl RBC Auto (Bld) [#/Vol]6.0 10*3/uL 4.1-10.5FGlenbeigh Hospital [Entitic mass] by Automated count Ordered By: Franck Gagnon on 22-63-0745XTB (RBC) [Entitic mass]30.4 pgNormal 27.5-35.2FMercy Health – The Jewish HospitalComment on above:Performed By: #### GOMEZ DOMINGUEZ, MG ####[place] [id number] [facility] ENIDHC Auto (RBC) [Mass/Vol]Ordered By: Franck Gagnon on 56-15-8956AHKC (RBC) [Mass/Vol]33.2 g/dL32.5-35.6FGalion HospitalV [Entitic volume] by Automated countOrdered By: Franck Gagnon on 22-87-3825YOH (RBC) [Entitic vol]91.5 fAWbazue20.5-101[facility] Brentwood HospitalComment on above:Performed By: #### ALBERTO CBCNO, MG ####[place] [address] [place] [address] USAMagnesium [Mass/volume] in Serum or Plasma Ordered By: Franck Gagnon on 46-40-4654Fvegauhjc [Mass/Vol]2.1 mg/dLNormal1.9-2.7 [facility] Brentwood HospitalComment on above:Result Comment: PERFORMED BY:[place] [address] [place], [place] [phone] MEDICAL MARY KATE SONI M.D.Performed By: #### CORA DOMINGUEZNO, MG ####[place] [address] [place] [address] USANo Panel InformationOrdered By: Franck Gagnon on 94-77-3358Tacpoqdcw GFR (CKD-EPI)55.532 mL/[facility] Creatinine Clearance (Chem40.92[facility]55.532 mL/[facility]40.92[facility] & Brentwood HospitalPlatelet mean volume [Entitic volume] in Blood by Automated countOrdered By: Franck Gagnon on 82-56-5027Zatdmiqs mean volume (Bld) [Entitic vol]7.5 fLNormal6.6-10.1FMercy Health – The Jewish HospitalComment on above:Result Comment: PERFORMED BY:[place] [address], [place] [phone] MEDICAL MARY KATE SONI M.D.Performed By: #### ALBERTO, CORANO, MG ####[address] [address] [place] Platelets [#/volume] in Blood by Automated countOrdered By: Franck Gagnon on 77-15-4731Vrvxffcvc (Bld) [#/Vol]173 10*3/sKLklaid959-215JxxlriazrSuburban Community Hospital & Brentwood HospitalComment on above:Performed By: #### BMP, CBCNO, MG ####[place] [address] [place] [address] USAPotassium [Moles/volume] in Serum or PlasmaOrdered By: Franck Gagonn on 32-35-2280Chsgqrinu [Moles/Vol]4.1 mmol/LNormal3.5-5.1FMercy Health – The Jewish HospitalComment on above:Performed By: #### GOMEZ DOMINGUEZ, MG ####[place] [address] [place] [address] USASerum or plasma anion gap determinationOrdered By: Franck Gagnon on 23-83-1390Fnsde gap [Moles/Vol]9.6 mmol/LNormal6.0-15.0 [facility] Brentwood HospitalComment on above:Performed By: #### GOMEZ DOMINGUEZ, MG ####[address] [address] [place] Sodium [Moles/volume] in Serum or PlasmaOrdered By: Franck Gagnon on 10-08-2024 Sodium [Moles/Vol]131 mmol/VJkq712-862XtircporuSuburban Community Hospital & Brentwood HospitalComment on above:Performed By: #### GOMEZ DOMINGUEZ, MG ####[address] [address] USAUrea nitrogen [Mass/volume] in Serum or PlasmaOrdered By: Franck Gagnon on 92-98-3260Kgbx nitrogen [Mass/Vol]20 mg/dL Normal7-25[facility] Brentwood HospitalComment on above:Performed By: #### GOMEZ DOMINGUEZ, MG ####[address] [address] USAAppearance of UrineOrdered By: Franck Gagnon on 26-74-5446Ajpijnjexe (U) CloudyCritically abnormalCleMercer County Community HospitalComment on above: Order Comment: Name Collection Type:: Chou CatheterPerformed By: #### CUU, ADDONUAPLUS ####[address] USABacteria [Presence] in Urine by AutomatedOrdered By: Franck Gagnon on 50-55-4749Vblxebqt Auto Ql (U)Rare [HPF]None SeenSuburban Community Hospital & Brentwood HospitalBilirubin Test strip Ql (U)Ordered By: Franck Gagnon on 58-27-2260Uckbxdaya Ql (U)NegativeNegativeSuburban Community Hospital & Brentwood HospitalCT head/brain wo conon 30-29-3960NI head/brain wo conNormalBartow Regional Medical Center Physician GroupCT head/brain wo conNormalBartow Regional Medical Center Physician GroupColor of Urine by AutoOrdered By: Franck Gagnon on 90-49-8372Fscib (U)YellowNormalYellowSuburban Community Hospital & Brentwood HospitalComment on above:Order Comment: Name Collection Type:: Chou Catheter Performed By: #### CUU, ADDONUAPLUS ####[address] USADipstick and Microscopicon 88-28-5073Mzqtimyo,Urine RareNormalNone SeenThe Firsthealth Physician GroupComment on above:Order Comment: Name Collection Type:: Chou CatheterPerformed By: #### CUU, ADDONUAPLUS ####[address] [place] Bilirubin,UrineNegativeNormalNegativeBartow Regional Medical Center Physician GroupComment on above:Order Comment: Name Collection Type:: Chou CatheterPerformed By: #### CUU, ADDONUAPLUS ####[address] [address] USAGlucose Ql (U)NormalNormalNormalThe Firsthealth Physician GroupComment on above:Order Comment: Name Collection Type:: Chou CatheterPerformed By: #### CUU, ADDONUAPLUS ####[address] [address] USAHyaline Casts,Osdoi7-2Zddprp5-2Hlp [facility] Physician GroupComment on above:Order Comment: Name Collection Type:: Chou CatheterPerformed By: #### CUU, ADDONUAPLUS ####[address] [address] USAMucus,UrineRareNormalBartow Regional Medical Center Physician GroupComment on above: Order Comment: Name Collection Type:: Chou CatheterResult Comment: PERFORMED BY:[place] [address] [place], [place] [phone] MEDICAL DIRECTORMARY SONI M.D.Performed By: #### CUU, ADDONUAPLUS ####[address]lucianaSEATT[place], [place] USANitrite,UrineNegativeNormalNegativeBartow Regional Medical Center Physician GroupComment on above:Order Comment: Name Collection Type:: Chou CatheterPerformed By: #### CUU, ADDONUAPLUS ####[address] [address] USAOccult Blood,Urine3+NormalNegativeThe Firsthealth Physician GroupComment on above:Order Comment: Name Collection Type:: Chou CatheterResult Comment: PERFORMED BY:[place] [address] [place], [place] [phone] MEDICAL DIRECTORMARY SONI M.D.Performed By: #### CUU, ADDONUAPLUS ####[address] USARBC,UrineInnumerableNormal0-4The Firsthealth Physician GroupComment on above:Order Comment: Name Collection Type:: Chou Catheter Performed By: #### CUU, ADDONUAPLUS ####[address] USASpecificy [place],Urine1.287Bugbza3.001-1.030The Firsthealth Physician GroupComment on above:Order Comment: Name Collection Type:: Chou CatheterPerformed By: #### CUU, ADDONUAPLUS ####[address] USAUrobilinogen,UrineNormalNormalNormal The Firsthealth Physician GroupComment on above:Order Comment: Name Collection Type:: Chou CatheterPerformed By: #### CUU, ADDONUAPLUS ####[address] USAWBC,UrineInnumerableNormal0-4 The Firsthealth Physician GroupComment on above:Order Comment: Name Collection Type:: Chou CatheterPerformed By: #### CUU, ADDONUAPLUS ####[address] USAEpithelial cells.squamous [#/area] in Urine sediment by Automated countOrdered By: Franck Gagnon on 03-33-0752Clnfyootjn cells.squamous Auto (Urine sed) [#/Area]N/AFMercy Health – The Jewish HospitalErythrocytes [#/area] in Urine sediment by Automated countOrdered By: Franck Gagnon on 33-86-2267ACL Auto (Urine sed) [#/Area] Innumerable [HPF]High0-4FMercy Health – The Jewish HospitalGlucose [Mass/volume] in Urine by Test stripOrdered By: Franck Gagnon on 31-01-3215Epysazj Test strip (U) [Mass/Vol]Normal mg/dLNormalSuburban Community Hospital & Brentwood HospitalHemoglobin Test strip Ql (U)Ordered By: Franck Gagnon on 05-13-6529Hnsmxllhsw Ql (U)3+High NegativeSuburban Community Hospital & Brentwood HospitalHemogram CBC Without Diffon 10-07-2024 Erythrocyte distribution width (RBC) [Ratio]17.6 %High12.0-14.8The [facility] Physician GroupComment on above:Performed By: #### CBCNO ####[place] [address] USAHematocrit (Bld) [Volume fraction]27.2 %Low38.8-50.0The Firsthealth Physician GroupComment on above: Performed By: #### CBCNO ####[place] [address] USAHemoglobin (Bld) [Mass/Vol]8.9 g/dLLow13.0-17.0The Firsthealth Physician GroupComment on above:Performed By: #### CBCNO ####[place] [address] USAMCH (RBC) [Entitic mass]30.2 fxGzwwiq11.5-35.2The Firsthealth Physician GroupComment on above: Performed By: #### CBCNO ####[place] [address] USAMCV (RBC) [Entitic vol]92.6 bMTlnzfu53.5-101The [facility] Physician Laird HospitalComment on above:Performed By: #### CBCNO ####[place] [address] USAMean Corpuscular HGB Conc32.6 g/lOUqizlx23.5-35.6The [facility] Physician Laird HospitalComment on above: Performed By: #### CBCNO ####[place] [address] USAPlatelet mean volume (Bld) [Entitic vol]7.8 fLNormal 6.6-10.1The [facility]health Physician Laird HospitalComment on above:Result Comment: PERFORMED BY:[address] [place], [place] [phone] MEDICAL DIRECTORMARY SONI M.D.Performed By: #### CBCNO ####[place] [address] [place] Platelets (Bld) [#/Vol]177 10*3/iBSyssbs757-765Hvp [facility] Comment on above:Performed By: #### CBCNO ####[place] [id number] USARBC (Bld) [#/Vol]2.94 10*6/uLLow3.90-5.60The [facility] Physician Laird HospitalComment on above:Performed By: #### CBCNO ####[place] [address] USAWhite Blood Count6.7 [CFU]/mLNormal4.1-10.5The [facility] Physician Laird HospitalComment on above:Performed By: #### CBCNO ####[place] [address] USAHyaline casts [#/area] in Urine sediment by Automated countOrdered By: Franck Gagnon on 83-84-9632Xvlfehm casts Auto (Urine sed) [#/Area]0-8 [LPF]0-8 [facility] HospitalKetones [Presence] in Urine by Test strip Ordered By: Franck Gagnon on 00-65-4516Gmohfuz Ql (U)TraceNormalNegTrinity Health System Twin City Medical CenterComment on above:Order Comment: Name Collection Type:: Chou CatheterPerformed By: #### CUU, ADDONUAPLUS ####[address] [place], [place] USALeukocyte esterase [Presence] in Urine by Test stripOrdered By: Franck Gagnon on 71-12-5595Urubabeii esterase Test strip Ql (U)3+NormalNegTrinity Health System Twin City Medical CenterComment on above: Order Comment: Name Collection Type:: Chou CatheterPerformed By: #### CUU, ADDONUAPLUS ####[address] USALeukocytes [#/area] in Urine sediment by Automated countOrdered By: Franck Gagnon on 19-94-8006ADL Auto (Urine sed) [#/Area]Innumerable [HPF]High0-4 [facility] HospitalMucus [Presence] in Urine by AutomatedOrdered By: Franck Gagnon on 14-96-7367Csqgk Auto Ql (U)Rare [LPF][facility] HospitalNitrite Test strip Ql (U)Ordered By: Franck Gagnon on 10-07-2024 Nitrite Ql (U)NegativeNegTrinity Health System Twin City Medical CenterProtein [Mass/volume] in Urine by Test stripOrdered By: Franck Gagnon on 10-07-2024 Protein (U) [Mass/Vol]100 mg/dLNoSt. John of God Hospital Comment on above:Order Comment: Name Collection Type:: Chou CatheterPerformed By: #### CUU, ADDONUAPLUS ####[address] USASpecific gravity Test strip (U) [Rel density]Ordered By: Franck Gagnon on 92-19-1418Bgixrfcs gravity (U) [Rel density]1.0281.001-1.030 [facility] HospitalUrine Cultureon 64-90-4402Uisdixqn identified Cx Nom (U)No Growth 2 Days PERFORMED BY: [facility] [address] [place] [address] PATHOLOGIST FRONT DESK ASSOCIATE MARY SONI M.D.[facility] Physician GroupComment on above: Performed By: #### CUU, ADDONUAPLUS ####[address] USAUrine cultureOrdered By: Franck Gagnon on 10-07-2024 Bacteria identified Cx Nom (U)No Growth 2 DaysSuburban Community Hospital & [facility] Hospital Urobilinogen Test strip (U) [Mass/Vol]Ordered By: Franck Gagnon on 10-07-2024 Urobilinogen (U) [Mass/Vol]Normal mg/dLNormalSuburban Community Hospital & Brentwood HospitalX- ray reportOrdered By: Shaquille Mahoney on 68-16-4816Rffvt reportSuburban Community Hospital & [facility] Hospital Work Phone: XR chest 1V portableon 36-95-5512ZH chest 1V portable NormalThe Firsthealth Physician Laird HospitalpH of Urine by Test stripOrdered By: Franck Gagnon on 33-05-1342hA (U)5.5 [pH]Normal5.0-9.0[facility] Comment on above:Order Comment: Name Collection Type:: Chou CatheterPerformed By: #### CUU, ADDONUAPLUS ####[address] USABlood Cultureon 15-98-7723Kcvqdhxr identified Cx Nom (Bld)NO GROWTH 5 DAYS PERFORMED BY: [facility] [address] [place] [address] PATHOLOGIST FRONT DESK ASSOCIATE MARY SONI M.D.NormalBartow Regional Medical Center Physician GroupComment on above: Performed By: #### CUBLD ####[address] [address] USABacteria identified Cx Nom (Bld)NO GROWTH 5 DAYS PERFORMED BY: [facility] [address] [place] [address] PATHOLOGIST FRONT DESK ASSOCIATE MARY SONI M.D.[facility] Physician GroupComment on above: Performed By: #### CUBLD ####[address] [place] [address] USACT head/brain wo conon 12-22-8967HA head/brain wo conNormalThe Firsthealth Physician GroupCapillary blood glucose measurement by glucometer (mass/volume)Ordered By: Franck Gagnon on 56-62-4602Fkjuaef [Mass/Vol] 102 mg/dLWayne HospitalComment on above:Random Glucose Reference Range is dependent on time and content of last meal. Glucose of more than 200 mg/dL in a nonstressed, ambulatory subject supports the diagnosis of Diabetes Mellitus.Result Comment: Random Glucose Reference Range is dependent on time and content of last meal. Glucose of more than 200 mg/dL in a nonstressed, ambulatory subject supports the diagnosis of Diabetes Mellitus.PERFORMED BY:[place] [address] [place], [place] [phone] MEDICAL DIRECTORMARY SONI M.D.Performed By: #### GLULS ####Point of Care testing,Dipstick and MicroscopicOrdered By: Frankie Reynolds on 35-95-5709Zfoiygtcjc (U)clearNormalClearSuburban Community Hospital & Brentwood HospitalComment on above:Order Comment: Name Collection Type:: Chou Catheter Performed By: #### RAGHAVENDRA, CUU ####[facility] Andrewcoosa valley medical centersheliaSE[place], [place] USAKetones Ql (U)NegativeNormalNegTrinity Health System Twin City Medical CenterComment on above:Order Comment: Name Collection Type:: Chou CatheterPerformed By: #### RAGHAVENDRA, CUU ####[place] [address] Andrewnovant health rowan medical [place], [place] USALeukocyte esterase Test strip Ql (U)4+ NormalNegTrinity Health System Twin City Medical CenterComment on above:Order Comment: Name Collection Type:: Chou CatheterPerformed By: #### OCTAVIANOPLUS, CUU ####[place] [address] Lynn Andrewnovant health rowan medical centerluciana, [place]Z[address] USApH (U) 5.5 [pH]Normal5.0-9.0[facility] Brentwood HospitalComment on above:Order Comment: Name Collection Type:: Chou CatheterPerformed By: #### ADDONUAPLUS, CUU ####[address] [place] Dipstick and Microscopicon 72-90-4503Heqoxnjw,Urine1+ [HPF]NormalNone SeenThe Firsthealth Physician GroupComment on above:Order Comment: Name Collection Type:: Chou CatheterPerformed By: #### ADDONUAPLUS, CUU ####[address] USABilirubin,UrineNegativeNormalNegative [facility] Physician GroupComment on above:Order Comment: Name Collection Type:: Chou CatheterPerformed By: #### ADDONUAPLUS, CUU ####[address] USAColor (U)Light-YellowNormal YellowBartow Regional Medical Center Physician GroupComment on above:Order Comment: Name Collection Type:: Chou CatheterPerformed By: #### ADDONUAPLUS, CUU ####[address] USAGlucose Ql (U)NormalNormalNormalThe Firsthealth Physician GroupComment on above:Order Comment: Name Collection Type:: Chou CatheterPerformed By: #### ADDONUAPLUS, CUU ####[address] [address] [place] Hyaline Casts,UrineNoneNormal0-8The Firsthealth Physician GroupComment on above: Order Comment: Name Collection Type:: Chou CatheterPerformed By: #### ADDONUAPLUS, CUU ####[address] [address] USAMucus,UrineRareNormalBartow Regional Medical Center Physician GroupComment on above: Order Comment: Name Collection Type:: Chou CatheterResult Comment: PERFORMED BY:[place] [address] [place], [place] [phone] MEDICAL DIRECTORMARADILENE S NAE M.D.Performed By: #### ADDONUAPLUS, CUU ####[address] [address] USANitrite,UrinePositiveNormalNegativeThe Firsthealth Physician GroupComment on above:Order Comment: Name Collection Type:: Chou CatheterPerformed By: #### ADDONUAPLUS, CUU ####[address] USAOccult Blood,Urine2+NormalNegativeThe [facility] Physician Group Comment on above:Order Comment: Name Collection Type:: Chou CatheterResult Comment: PERFORMED BY:[address] [place], [place] [phone] MEDICAL MARY KATE SONI M.D.Performed By: #### ADDONUAPLUS, CUU ####[address] USAProtein,UrineTraceNormalNegativeThe Firsthealth Physician GroupComment on above:Order Comment: Name Collection Type:: Chou CatheterPerformed By: #### ADDONUAPLUS, CUU ####[address] USARBC,Gvtgz73-81Opdafx3-3Lqh First[facility] Physician GroupComment on above:Order Comment: Name Collection Type:: Chou CatheterPerformed By: #### ADDONUAPLUS, CUU ####[address] USASpecificy [place],Urine1.018Normal 1.001-1.030The Firsthealth Physician GroupComment on above:Order Comment: Name Collection Type:: Chou CatheterPerformed By: #### ADDONUAPLUS, CUU ####[address] [place] Urobilinogen,UrineNormalNormalNormalThe Firsthealth Physician GroupComment on above:Order Comment: Name Collection Type:: Chou CatheterPerformed By: #### ADDONUAPLUS, CUU ####[facility] [address] [place] [address] USAWBC,Fiikq23-58Tphpaw9-1Mvf [facility] Physician GroupComment on above: Order Comment: Name Collection Type:: Chou CatheterPerformed By: #### ADDTINO, CUU ####[facility] [address] [place] [address] USALaboratory - Chemistry and Chemistry - challengeOrdered By: Frankie Reynolds on 63-65-0450Sovbjxrkq Ql (U)NegativeSuburban Community Hospital & [facility] Hospital Specific gravity (U) [Rel density]1.018[facility] Laboratory - Microbiology and Antimicrobial susceptibilityOrdered By: Franck Gagnon on 45-90-0151Iifsvtgx identified Cx Nom (Bld)NO GROWTH [address] [place], [place] [address]Bacteria identified Cx Nom (Bld)NO GROWTH [facility]Labor[facility] - Specimen informationOrdered By: Frankie Reynolds on 26-47-8721Uioyh (U)lightyellowSuburban Community Hospital & [facility] Laboratory - UrinalysisOrdered By: Frankie Reynolds on 50-28-9493Svqupdh Ql (U) PositiveSuburban Community Hospital & Brentwood HospitalProtein Ql (U)TraceSuburban Community Hospital & Brentwood HospitalMRSA - MSSA Nasal PCRon 35-29-1055VXWC - MSSA Nasal PCRNormalThe Firsthealth Physician GroupComment on above:Performed By: #### MRSA - MSSA PCR ####[facility] [address] [place] [address] USANo Panel InformationOrdered By: Michele Knight on 79-57-0412Mazed Screen MRSA/MSSA [facility] HospitalNo Panel InformationOrdered By: Franck Gagnon on 52-35-2497XR GROWTH 5 DAYSSuburban Community Hospital & Brentwood HospitalNO GROWTH DAYS [facility] HospitalNo Panel InformationOrdered By: Frankie Reynolds on 75-07-9510Borjk Collection TypeSee commentSuburban Community Hospital & [facility] Hospital Comment on above:naUrine Glucose (UA)NormalSuburban Community Hospital & [facility] Urine Occult BloodSee commentSuburban Community Hospital & Brentwood HospitalComment on above: not doneUrine UrobilinogenNormalSt. Francis Hospitalee comment [facility] HospitallightyellowSub[facility] clearSuburban Community Hospital & Brentwood HospitalNormalSub[facility] NegativeSuburban Community Hospital & [facility] Hospital1.018[facility] 5.5FMercy Health – The Jewish HospitalTraceSub[facility] PositiveSuburban Community Hospital & [facility] Hospital4+[facility] Urine Cultureon 67-07-8810Goimdapm identified Cx Nom (U)NormalThe Firsthealth Physician GroupComment on above:Performed By: #### RAGHAVENDRA, CUU ####[facility] [address] [place], [place] USAUrine cultureOrdered By: Franck Gagnon on 93-37-9529Xnnikygw identified Cx Nom (U) Enterococcus faecalisAbWayne HospitalAlanine aminotransferase [Enzymatic activity/volume] in Serum or PlasmaOrdered By: Terence Steele on 36-36-5755VBC [Catalytic activity/Vol]6 U/LLow7-52[facility] HospitalComment on above:Performed By: #### CBC, CMP, PTT, PT ####[facility] [address] [place] [address] USAAlbumin [Mass/volume] in Serum or Plasma by Bromocresol green (BCG) dye binding metho Ordered By: Terence Steele on 16-77-6232Zgystwp BCG dye [Mass/Vol]3.5 g/dL3.5-5.7 [facility] Brentwood HospitalAlkaline phosphatase [Enzymatic activity/volume] in Serum or PlasmaOrdered By: Terence Steele on 63-82-6900XCR [Catalytic activity/Vol]157 U/BUyxl22-587WlcvzmjxuSuburban Community Hospital & [facility] Hospital Comment on above:Performed By: #### CBC, CMP, PTT, PT ####[facility] [address] [place] [address] USAAspartate aminotransferase [Enzymatic activity/volume] in Serum or PlasmaOrdered By: Terence tSeele on 56-12-3343IOE [Catalytic activity/Vol]16 U/BLhmucp99-77PxnxnoazfSuburban Community Hospital & Brentwood HospitalComment on above:Performed By: #### CBC, CMP, PTT, PT ####[facility] [address] [place] [address] [place] Basophils [#/volume] in Blood by Automated countOrdered By: Terence Steele on 75-65-3959Skrbqzyow (Bld) [#/Vol]0.0 10*3/uLNormal0.0-0.2FMercy Health – The Jewish HospitalComment on above:Result Comment: PERFORMED BY:[address] [place], [place] [phone] MEDICAL DIRECTORMARY SONI M.D.Performed By: #### CBC, CMP, PTT, PT ####[address] [address] USABasophils/100 leukocytes in Blood by Automated countOrdered By: Terence Steele on 10-05-2024 Basophils/100 WBC (Bld)0.4 %Normal.[facility] Brentwood HospitalComment on above:Performed By: #### CBC, CMP, PTT, PT ####[address] [address] USABilirubin.total [Mass/volume] in Serum or PlasmaOrdered By: Terence Steele on 00-71-9470Uvjrizqeq [Mass/Vol]0.6 mg/dL Normal0.3-1.0[facility] Brentwood HospitalComment on above:Performed By: #### CBC, CMP, PTT, PT ####[address] [address] USACT cervical spine wo [facility] 62-47-4422BE cervical spine wo conNUNC Hospitals Hillsborough Campus Physician GroupCT facial bones wo [facility] centeron 88-08-2002XV facial bones wo conNUNC Hospitals Hillsborough Campus Physician GroupCT head/brain wo [facility] 47-72-1337EF head/brain wo conNUNC Hospitals Hillsborough Campus Physician Group Calcium [Mass/volume] in Serum or PlasmaOrdered By: Terence Steele on 10-05-2024 Calcium [Mass/Vol]9.4 mg/dLNormal8.6-10.3FMercy Health – The Jewish Hospital Comment on above:Performed By: #### CBC, CMP, PTT, PT ####[address] [address] USACarbon dioxide, total [Moles/volume] in Serum or PlasmaOrdered By: Terence Steele on 36-02-3857SN2 [Moles/Vol]25.9 mmol/IMkgzmd79.0-31.0[facility] HospitalComment on above:Performed By: #### CBC, CMP, PTT, PT ####[address] [address] USAChloride [Moles/volume] in Serum or PlasmaOrdered By: Terence Steele on 46-19-1124Ishormnd [Moles/Vol]102 mmol/LNormal 98-107[facility] Brent[facility] HospitalComment on above:Performed By: #### CBC, CMP, PTT, PT ####[address] [address] USAComplete Blood Count Auto Diffon 62-12-1533Izxi Corpuscular HGB Conc 33.1 g/wUAsommw95.5-35.6The [facility] Physician GroupComment on above:Performed By: #### CBC, CMP, PTT, PT ####[address] [address] USAMonocytes/100 WBC (Bld)19.41 %Normal0.00-20.00The Firsthealth Physician GroupComment on above:Performed By: #### CBC, CMP, PTT, PT ####[address] [address] USANRBC% 0.2 /100{WBC}Normal0-0.5The Firsthealth Physician GroupComment on above:Performed By: #### CBC, CMP, PTT, PT ####[address] [address] USAWhite Blood Count5.7 [CFU]/mLNormal4.1-10.5The First[facility] Physician GroupComment on above:Performed By: #### CBC, CMP, PTT, PT ####[address] [address] [place] Comprehensive Metabolic Panelon 26-21-0653Mlwingk [Mass/Vol]3.5 g/dLNormal 3.5-5.7The First[facility] Physician GroupComment on above:Performed By: #### CBC, CMP, PTT, PT ####[address] [place] [address] USACreatinine Clr Calc Danhbnwc51.79NoAsheville Specialty Hospital Physician Group Comment on above:Result Comment: PERFORMED BY:[place] [address] [place], [place] [phone] MEDICAL DIRECTORMARY SONI M.D.Performed By: #### CBC, CMP, PTT, PT ####[address] [address] USAGFR/1.73 sq M.predicted MDRD (S/P/Bld) [Vol rate/Area]mL/min/{1.73_m2}NormalThe Firsthealth Physician Laird HospitalComment on above:Performed By: #### CBC, CMP, PTT, PT ####[place] [address] [place] Creatinine [Mass/volume] in Serum or PlasmaOrdered By: Terence Steele on 08-09-9218Axmcfnknnp [Mass/Vol]1.11 mg/dLNormal0.70-1.30[facility] Brentwood HospitalComment on above:Performed By: #### CBC, CMP, PTT, PT ####[address] [address] USAECG 12 lead ECGon 07-31-3766DPG 12 lead ECGCampbellton-Graceville Hospital Physician [facility] Eosinophils [#/volume] in Blood by Automated countOrdered By: Terence Steele on 31-44-4568Mbryoocvjlv (Bld) [#/Vol]0.3 10*3/uLNormal0.0-0.45[facility] Brent[facility] HospitalComment on above:Performed By: #### CBC, CMP, PTT, PT ####[place] [address] [place] Eosinophils/100 leukocytes in Blood by Automated countOrdered By: Terence Steele on 22-84-0469Ktubbfirurt/100 WBC (Bld)4.7 %Normal.[facility] Brentwood HospitalComment on above:Performed By: #### CBC, CMP, PTT, PT ####[address] [address] USAErythrocyte distribution width [Ratio] by Automated countOrdered By: Terence Steele on 04-33-3070Spwibvlhnno distribution width (RBC) [Ratio]17.5 %High12.0-14.8 [facility] Brentwood HospitalComment on above:Performed By: #### CBC, CMP, PTT, PT ####[address] [address] USAErythrocytes [#/volume] in Blood by Automated countOrdered By: Terence Steele on 81-58-6494UNE (Bld) [#/Vol]3.08 10*6/uLLow3.90-5.60[facility] HospitalComment on above:Performed By: #### CBC, CMP, PTT, PT ####[address] [address] USAGlucose [Mass/volume] in Serum or PlasmaOrdered By: Terence Steele on 71-70-6144Thybfgq [Mass/Vol]105 mg/gMQixf04-176ErhomagzbSuburban Community Hospital & Brentwood HospitalComment on above:Result Comment: Random Glucose Reference Range is dependent on time and content of last meal. Glucose of more than 200 mg/dL in a nonstressed, ambulatory subject supports the diagnosis of Diabetes Mellitus. ADA recommended reference rangePerformed By: #### CBC, CMP, PTT, PT ####[address] [address] USAHematocrit [Volume Fraction] of Blood by Automated countOrdered By: Terence Steele on 21-65-5860Mbekaynksp (Bld) [Volume fraction] 28.3 %Low38.8-50.0[facility] Brentwood HospitalComment on above:Performed By: #### CBC, CMP, PTT, PT ####[address] [address] USAHemoglobin [Mass/volume] in BloodOrdered By: Terence Steele on 04-44-8024Msjlffjprs (Bld) [Mass/Vol]9.3 g/dLLow13.0-17.0[facility] Brent[facility] HospitalComment on above:Performed By: #### CBC, CMP, PTT, PT ####[address] [place] [address] USAINR in Platelet poor plasma by Coagulation assayOrdered By: Terence Steele on 10-05-2024 INR Coag (PPP) [Relative time]2.4 {INR}NormalSuburban Community Hospital & [facility] Hospital Comment on above:INR Therapeutic Range A) [...] 4.5Performed By: #### CBC, CMP, PTT, PT ####[address] [place] [address] [place] Leukocytes [#/volume] corrected for nucleated erythrocytes in Blood by Automated counOrdered By: Terence Steele on 40-23-4087GWW corrected for nucl RBC Auto (Bld) [#/Vol]5.7 10*3/uL4.1-10.5FMercy Health – The Jewish HospitalLeukocytes [#/volume] in Blood by Automated countOrdered By: Terence Steele on 53-86-3899UOS (Bld) [#/Vol]5.7 10*3/uLNormal4.1-10.5FMercy Health – The Jewish HospitalComment on above:Performed By: #### CBC, CMP, PTT, PT ####[address] [place] [address] USALymphocytes [#/volume] in Blood by Automated countOrdered By: Terence Steele on 48-61-4664Vuksvmiqles (Bld) [#/Vol] 1.1 10*3/uLNormal1.00-4.8[facility] Brentwood HospitalComment on above: Performed By: #### CBC, CMP, PTT, PT ####[facility] [address] [place] [address] USALymphocytes/100 leukocytes in Blood by Automated countOrdered By: Terence Steele on 80-14-1286Auukktwdeag/100 WBC (Bld) 19.8 %Normal.[facility] Brentwood HospitalComment on above:Performed By: #### CBC, CMP, PTT, PT ####[address] [address] [facility] [Entitic mass] by Automated countOrdered By: Terence Steele on 88-94-9850XIR (RBC) [Entitic mass]30.3 bqHmgeru30.5-35.2 [facility] Brentwood HospitalComment on above:Performed By: #### CBC, CMP, PTT, PT ####[address] [address] [facility] ENIDHC Auto (RBC) [Mass/Vol]Ordered By: Terence Steele on 64-59-7226ASQW (RBC) [Mass/Vol]33.1 g/dL32.5-35.6FMercy Health – The Jewish HospitalMCV [Entitic volume] by Automated countOrdered By: Terence Steele on 38-09-6180SSK (RBC) [Entitic vol]91.7 rWPrylfh47.5-101[facility] Brentwood HospitalComment on above:Performed By: #### CBC, CMP, PTT, PT ####[facility] [address] [place] [address] USAMonocyte distribution width [Entitic volume] in Blood by AutomatedOrdered By: Terence Steele on 19-40-1342Vezfgnur distribution width Auto (Bld) [Entitic vol]19.41 %0.00-20.00[facility] Brentwood HospitalMonocytes [#/volume] in Blood by Automated countOrdered By: Terence Steele on 55-57-8873Htwszeayv (Bld) [#/Vol]0.6 10*3/uLNormal0.0-0.8[facility] Brentwood HospitalComment on above:Performed By: #### CBC, CMP, PTT, PT ####[facility] [place] [address] [place] Monocytes/100 leukocytes in Blood by Automated countOrdered By: Terence Steele on 91-02-3027Ybakcwfyx/100 WBC (Bld)9.9 %Normal.[facility] Comment on above:Performed By: #### CBC, CMP, PTT, PT ####[address] [place] [address] USANeutrophils [#/volume] in Blood by Automated countOrdered By: Terence Steele on 13-57-0057Zlmzkpbzalb (Bld) [#/Vol]3.7 10*3/uLNormal1.8-7.7FMercy Health – The Jewish HospitalComment on above:Performed By: #### CBC, CMP, PTT, PT ####[address] [place] [address] USANeutrophils/100 leukocytes in Blood by Automated countOrdered By: Terence Steele on 92-98-6914Tlbwlymcnpz/100 WBC (Bld) 65.2 %Normal.[facility] Brentwood HospitalComment on above:Performed By: #### CBC, CMP, PTT, PT ####[address] [address] USANo Panel InformationOrdered By: Terence Steele on 10-05-2024> 60.0 mL/MinSuburban Community Hospital & Brentwood Hospital44.79[facility] Brentwood HospitalNucleated erythrocytes [Presence] in Blood by Automated count Ordered By: Terence Steele on 92-19-8732Turrmnywe RBC Auto Ql (Bld)0.2 /100{WBC} 0-0.5FMercy Health – The Jewish HospitalPartial Thromboplastin Timeon 10-05-2024 aPTT Coag (Bld) [Time]41.0 sHigh25.1-36.5The Firsthealth Physician GroupComment on above:Result Comment: A hematocrit value greater than 55% may lead to inaccurate results in coagulation testing. Patients having hematocrit values >55% require a special collection tube for coagulation studies. Please contact the laboratory at [phone] for redraw instructions.PERFORMED BY:[address] [place], [place] [phone] MEDICAL DIRECTORMARY SONI M.D.Performed By: #### CBC, CMP, PTT, PT ####[address] [address] [facility] Platelet mean volume [Entitic volume] in Blood by Automated countOrdered By: Terence Steele on 91-69-0874Otacksis mean volume (Bld) [Entitic vol]7.7 fLNormal 6.6-10.1FMercy Health – The Jewish HospitalComment on above:Performed By: #### CBC, CMP, PTT, PT ####[address] [address] USAPlatelets [#/volume] in Blood by Automated countOrdered By: Terence Steele on 85-01-0164Hxygzqkua (Bld) [#/Vol]217 10*3/pIXmiayp029-748KvoeclgapSuburban Community Hospital & Brentwood HospitalComment on above:Performed By: #### CBC, CMP, PTT, PT ####[id number] [facility] Potassium [Moles/volume] in Serum or PlasmaOrdered By: Terence Steele on 13-93-2544Ndigwokvr [Moles/Vol]4.2 mmol/LNormal3.5-5.1FMercy Health – The Jewish HospitalComment on above:Performed By: #### CBC, CMP, PTT, PT ####[address] [address] USAProtein [Mass/volume] in Serum or PlasmaOrdered By: Terence Steele on 36-43-7859Cmrlcyy [Mass/Vol]6.7 g/dLNormal6.4-8.9[facility] & Brentwood HospitalComment on above:Performed By: #### CBC, CMP, PTT, PT ####[address] [address] USAProthrombin time (PT)Ordered By: Terence Steele on 69-46-5426DS Coag (PPP) [Time]26.6 sHigh9.0-12.9[facility] & Brentwood HospitalComment on above:A hematocrit value greater than 55% may lead to inaccurate results in coagulation testing. Patientshaving hematocrit values >55% require a special collection tube for coagulation studies. Please contact the laboratory at [phone] for redraw instructions.Result Comment: A hematocrit value greater than 55% may lead to inaccurate results in coagulation testing. Patients having hematocrit values >55% require a special collection tube for coagulation studies. Please contact the laboratory at [phone] for redraw instructions.Performed By: #### CBC, CMP, PTT, PT ####[address] [place] [address] USASerum globulin measurement by calculation (mass/volume)Ordered By: Terence Steele on 41-79-4093Sqbrxciz (S) [Mass/Vol]3.2 g/dLNormalSuburban Community Hospital & Brentwood HospitalComment on above: Performed By: #### CBC, CMP, PTT, PT ####[address] [id number] USASerum or plasma albumin/globulin mass ratio Ordered By: Terence Steele on 12-26-2382Rzsdrhy/Globulin [Mass ratio]1.1 {ratio} NormalSuburban Community Hospital & Brentwood HospitalComkresge eye institute on above:Performed By: #### CBC, CMP, PTT, PT ####[place] [address] USASerum or plasma anion gap determinationOrdered By: Terence Steele on 01-33-0177Hlxik gap [Moles/Vol]13.3 mmol/LNormal6.0-15.0[facility] & Brentwood HospitalComment on above:Performed By: #### CBC, CMP, PTT, PT ####[address] [address] USASodium [Moles/volume] in Serum or PlasmaOrdered By: Terence Steele on 44-95-5425Vogfsu [Moles/Vol]137 mmol/CGivcpk966-049FxojfrqzsSuburban Community Hospital & Brentwood HospitalComment on above:Performed By: #### CBC, CMP, PTT, PT ####[address] [address] USAUrea nitrogen [Mass/volume] in Serum or PlasmaOrdered By: Terence Steele on 84-34-3189Siaj nitrogen [Mass/Vol]18 mg/dL Normal7-25[facility] & Brentwood HospitalComment on above:Performed By: #### CBC, CMP, PTT, PT ####[address] [address] USAaPTT in Platelet poor plasma by Coagulation assayOrdered By: Terence Steele on 02-88-6623eBZU Coag (PPP) [Time]41.0 sHigh25.1-36.5FMercy Health – The Jewish HospitalComment on above:A hematocrit value greater than 55% may lead to inaccurate results in coagulation testing. Patientshaving hematocrit values >55% require a special collection tube for coagulation studies. Please contact the laboratory at [phone] for redraw instructions.Basic Metabolic Panelon 69-30-2653SLR/1.73 sq M.predicted MDRD (S/P/Bld) [Vol rate/Area]mL/min/{1.73_m2} NormalThe Firsthealth Physician GroupComment on above:Performed By: #### CBC, BMP ####[address] [address] [place] Basophils [#/volume] in Blood by Automated countOrdered By: Bhupinder Mcintyre on 14-77-5658Upxmaceon (Bld) [#/Vol]0.0 10*3/uLNormal0.0-0.2FMercy Health – The Jewish HospitalComment on above:Result Comment: PERFORMED BY:[address] [place], [place] [phone] MEDICAL MARY KATE SONI M.D.Performed By: #### CBC, BMP ####[address] [address] USABasophils/100 leukocytes in Blood by Automated countOrdered By: Bhupinder Mcintyre on 12-91-0876Vlrnfcdka/100 WBC (Bld)1.0 %Normal.[facility] & Brentwood HospitalComment on above:Performed By: #### CBC, BMP ####[address] [address] USACalcium [Mass/volume] in Serum or PlasmaOrdered By: Bhupinder Mcintyre on 85-29-2689Dhpsxqo [Mass/Vol]8.7 mg/dLNormal8.6-10.3FMercy Health – The Jewish HospitalComment on above:Result Comment: PERFORMED BY:[address] [place], [place] [phone] MEDICAL DIRECTORMARY SONI M.D.Performed By: #### CBC, BMP ####[address] [address] USACarbon dioxide, total [Moles/volume] in Serum or PlasmaOrdered By: Bhupinder Mcintyre on 05-81-5328BK7 [Moles/Vol]29.5 mmol/XBauuaw25.0-31.0[facility]wood HospitalComment on above:Performed By: #### CBC, BMP ####[address] [address] USAChloride [Moles/volume] in Serum or PlasmaOrdered By: Bhupinder Mcintyre on 34-40-5216Qssjkyqz [Moles/Vol]103 mmol/NIiyqnq65-623UzgnetuytSuburban Community Hospital & Brentwood HospitalComment on above:Performed By: #### CBC, BMP ####[address] [address] [facility] Complete Blood Count Auto Diffon 72-09-9142Pbjx Corpuscular HGB Conc32.5 g/dL Ygfadv11.5-35.6The Firsthealth Physician GroupComment on above:Performed By: #### CBC, BMP ####[address] [address] USANRBC%0.2 /100{WBC}Normal0-0.5The Firsthealth Physician GroupComment on above: Performed By: #### CBC, BMP ####[address] [place] [address] USAWhite Blood Count4.5 [CFU]/mLNormal4.1-10.5The Firsthealth Physician GroupComment on above:Performed By: #### CBC, BMP ####[place] [place] Creatinine [Mass/volume] in Serum or PlasmaOrdered By: Bhupinder Mcintyre on 09-24-2024 Creatinine [Mass/Vol]1.08 mg/dLNormal0.70-1.30[facility] Comment on above:Performed By: #### CBC, BMP ####[address] USAEosinophils [#/volume] in Blood by Automated countOrdered By: Bhupinder Mcintyre on 97-01-6113Imcrhyoplqr (Bld) [#/Vol]0.3 10*3/uLNormal0.0-0.45[facility] Brentwood HospitalComment on above:Performed By: #### CBC, BMP ####[address] [address] USAEosinophils/100 leukocytes in Blood by Automated countOrdered By: Bhupinder Mcintyre on 98-41-1353Lwbswuknzqh/100 WBC (Bld)7.2 %Normal.[facility] & Brentwood HospitalComment on above:Performed By: #### CBC, BMP ####[address] [address] USAErythrocyte distribution width [Ratio] by Automated countOrdered By: Bhupinder Mcintyre on 09-24-2024 Erythrocyte distribution width (RBC) [Ratio]17.4 %High12.0-14.8[facility] & Brentwood HospitalComment on above:Performed By: #### CBC, BMP ####[place] [address] [place] Erythrocytes [#/volume] in Blood by Automated countOrdered By: Bhupinder Mcintyre on 09-59-8923YNJ (Bld) [#/Vol]2.99 10*6/uLLow3.90-5.60[facility] HospitalComment on above:Performed By: #### CBC, BMP ####[address] [address] USAGlucose [Mass/volume] in Serum or PlasmaOrdered By: Bhupinder Mcintyre on 12-61-0235Wbuxpuo [Mass/Vol]80 mg/dLNormal 70-100[facility] & Brentwood HospitalComment on above:ADA recommended reference rangeRandom Glucose [...] recommended reference rangePerformed By: #### CBC, BMP ####[address] [address] USAHematocrit [Volume Fraction] of Blood by Automated countOrdered By: Bhupinder Mcintyre on 18-86-9498Jmlugvwium (Bld) [Volume fraction]27.6 %Low38.8-50.0 [facility] Brentwood HospitalComment on above:Performed By: #### CBC, BMP ####[address] [address] [place] Hemoglobin [Mass/volume] in BloodOrdered By: Bhupinder Mcintyre on 81-08-9176Bjnlneowxf (Bld) [Mass/Vol]9.0 g/dLLow13.0-17.0[facility] HospitalComment on above:Performed By: #### CBC, BMP ####[address] [address] USALeukocytes [#/volume] corrected for nucleated erythrocytes in Blood by Automated counOrdered By: Bhupinder Mcintyre on 09-39-6903VOU corrected for nucl RBC Auto (Bld) [#/Vol]4.5 10*3/uL4.1-10.5FMercy Health – The Jewish HospitalLeukocytes [#/volume] in Blood by Automated countOrdered By: Bhupinder Mcintyre on 53-72-8921MTK (Bld) [#/Vol]4.5 10*3/uLNormal4.1-10.5FMercy Health – The Jewish HospitalComment on above:Performed By: #### CBC, BMP ####[address] [address] [place] Lymphocytes [#/volume] in Blood by Automated countOrdered By: Bhupinder Mcintyre on 28-18-1425Rrauodrxxlb (Bld) [#/Vol]1.3 10*3/uLNormal1.00-4.8[facility] Brent[facility] HospitalComment on above:Performed By: #### CBC, BMP ####[address] [address] USALymphocytes/100 leukocytes in Blood by Automated countOrdered By: Bhupinder Mcintyre on 09-24-2024 Lymphocytes/100 WBC (Bld)29.5 %Normal.[facility] & Brentwood HospitalComment on above:Performed By: #### CBC, BMP ####[address] [address] [facility] [place] [Entitic mass] by Automated countOrdered By: Bhupinder Mcintyre on 89-66-5602HHM (RBC) [Entitic mass]30.0 gxAewyfp19.5-35.2 [facility] Brentwood HospitalComment on above:Performed By: #### CBC, BMP ####[address] [address] [facility] Auto (RBC) [Mass/Vol]Ordered By: Bhupinder Mcintyre on 46-49-5102NOWY (RBC) [Mass/Vol] 32.5 g/dL32.5-35.6FGalion HospitalV [Entitic volume] by Automated countOrdered By: Bhupinder Mcintyre on 32-94-4120TRF (RBC) [Entitic vol]92.3 fL Hyufrz48.5-101[facility] & Brentwood HospitalComment on above:Performed By: #### CBC, BMP ####[address] [address] USAMonocytes [#/volume] in Blood by Automated countOrdered By: Bhupinder Mcintyer on 27-41-5478Vczacgvfu (Bld) [#/Vol]0.4 10*3/uLNormal0.0-0.8[facility] HospitalComment on above:Performed By: #### CBC, BMP ####[address] [place] [address] USAMonocytes/100 leukocytes in Blood by Automated countOrdered By: Bhupinder Mcintyre on 09-24-2024 Monocytes/100 WBC (Bld)8.7 %Normal.[facility] & Brentwood HospitalComment on above:Performed By: #### CBC, BMP ####[place] [address] USANeutrophils [#/volume] in Blood by Automated count Ordered By: Bhupinder Mcintyre on 50-70-6029Uggvpoujwde (Bld) [#/Vol]2.4 10*3/uLNormal 1.8-7.7FMercy Health – The Jewish HospitalComment on above:Performed By: #### CBC, BMP ####[place] [address] [place] Neutrophils/100 leukocytes in Blood by Automated countOrdered By: Bhupinder Mcintyre on 55-39-4853Iqlsncoutoo/100 WBC (Bld)53.6 %Normal.[facility] & Brentwood HospitalComment on above:Performed By: #### CBC, BMP ####[place] [address] USANo Panel InformationOrdered By: Bhupinder Mcintyre on 17-90-3160Zrapjelbt GFR (CKD-EPI)> 60.0 mL/MinSuburban Community Hospital & Brentwood HospitalPharmacy Creatinine Clearance (ChemN/[facility]> 60.0 mL/MinSuburban Community Hospital & Brentwood HospitalN/Berger HospitalNucleated erythrocytes [Presence] in Blood by Automated countOrdered By: Bhupinder Mcintyre on 15-74-4471Tzoxnfkqm RBC Auto Ql (Bld)0.2 /100{WBC} 0-0.5FMercy Health – The Jewish HospitalPlatelet mean volume [Entitic volume] in Blood by Automated countOrdered By: Bhupinder Mcintyre on 94-36-2128Jdcazmca mean volume (Bld) [Entitic vol]8.2 fLNormal6.6-10.1FMercy Health – The Jewish HospitalComment on above:Performed By: #### CBC, BMP ####[address] [address] USAPlatelets [#/volume] in Blood by Automated countOrdered By: Bhupinder Mcintyre on 20-13-8384Savwqqvtt (Bld) [#/Vol]188 10*3/uLNormal 150-450[facility] Brentwood HospitalComment on above:Performed By: #### CBC, BMP ####[address] [address] [place] Potassium [Moles/volume] in Serum or PlasmaOrdered By: Bhupinder cMintyre on 09-24-2024 Potassium [Moles/Vol]4.3 mmol/LNormal3.5-5.1FMercy Health – The Jewish Hospital Comment on above:Performed By: #### CBC, BMP ####[address] [address] USASerum or plasma anion gap determinationOrdered By: Bhupinder Mcintyre on 93-39-0663Excmk gap [Moles/Vol]9.8 mmol/L Normal6.0-15.0[facility] Brentwood HospitalComment on above:Performed By: #### CBC, BMP ####[address] [address] USASodium [Moles/volume] in Serum or PlasmaOrdered By: Bhupinder Mcintyre on 92-44-1189Ttyedu [Moles/Vol]138 mmol/MShzetm267-761HisdqtqzrSuburban Community Hospital & Brentwood HospitalComment on above:Performed By: #### CBC, BMP ####[address] [address] USAUrea nitrogen [Mass/volume] in Serum or PlasmaOrdered By: Bhupinder Mcintyre on 82-84-9784Hbbc nitrogen [Mass/Vol]19 mg/dLNormal7-25[facility] Brentwood HospitalComment on above:Performed By: #### CBC, BMP ####[address] [address] USAUrine Cultureon 50-93-5342Jfojggqj identified Cx Nom (U)NormalThe Firsthealth Physician GroupComment on above:Performed By: #### CUU ####[address] [address] USAUrine cultureOrdered By: Opal Ga on 35-72-7919Qsfdjdxt identified Cx Nom (U)Achromobacter xylosoxidansTriHealth Bethesda North HospitalUrine Cultureon 08-27-2024 Bacteria identified Cx Nom (U)NormalThe Firsthealth Physician GroupComment on above:Performed By: #### CUU ####[address] [address] USAUrine cultureOrdered By: Opal Ga on 08-27-2024 Bacteria identified Cx Nom (U)Citrobacter freundii complexAbWayne HospitalBacteria identified Cx Nom (U)Pseudomonas aeruginosa AbnormalSuburban Community Hospital & Brentwood HospitalCreatinineon 85-56-0995TQT/1.73 sq M.predicted MDRD (S/P/Bld) [Vol rate/Area]mL/min/{1.73_m2}NormalThe Firsthealth Physician GroupComment on above:Result Comment: PERFORMED BY:[address] [place], [place] [phone] MEDICAL DIRECTORJAJA CATES M.D.Performed By: #### DESTINY ANTONIOAT ####[address] [address] USACreatinine [Mass/volume] in Serum or PlasmaOrdered By: Sandip Aguirre on 07-23-2024 Creatinine [Mass/Vol]1.06 mg/dLNormal0.70-1.30[facility] Comment on above:Performed By: #### DESTINY ANTONIOAT ####[address] [address] USAErythrocyte Sedimentation Rateon 77-98-7770OXT (Bld) [Velocity]63 mm/hHigh0-19The [facility] Comment on above:Result Comment: PERFORMED BY:[address] [place], [place] [phone] MEDICAL DIRECTORJAJA VILLAGOMEZCINDY MariePerformed By: #### ESR ####[address] [address] USAErythrocyte sedimentation rate by Photometric methodOrdered By: Sandip Aguirre on 37-31-7152OOK Photometric method (Bld) [Velocity]63 mm/hrHigh0[facility] & Brentwood HospitalNo Panel InformationOrdered By: Sandip Aguirre on 69-91-9824Bmhptlbpp GFR (CKD-EPI)> 60.0 mL/MinSuburban Community Hospital & Brentwood HospitalPharmacy Creatinine Clearance (ChemN/[facility]> 60.0 mL/MinSuburban Community Hospital & Brentwood HospitalN/Berger HospitalVancomycin [Mass/volume] in Serum or Plasma --troughOrdered By: Sandip Aguirre on 59-51-8326Uxwovxllnj trough [Mass/Vol]18.2 ug/mL10.0-20.0[facility] Brentwood HospitalComment on above:Last dose: -Vancomycin,Troughon 07-23-2024 Vancomycin,Ibbagc15.2 ug/nVDxflyy47.0-20.0The Firsthealth Physician GroupComment on above:Result Comment: Last dose: -PERFORMED BY:[address] [place], [place] [phone] MEDICAL DIRECTORJAJA VILLAGOMEZCINDY MariePerformed By: #### TALHA ANTONIO ####[address] [address] USABasophils Auto (Bld) [#/Vol]Ordered By: Mario Jordan on 18-91-1088Tyndtiyxs (Bld) [#/Vol]Automated basophil count0.0-0.2FMercy Health – The Jewish HospitalBasophils [#/volume] in Blood by Automated countOrdered By: Mario Jordan on 65-78-1990Sloqysqrx (Bld) [#/Vol]0.1 10*3/uLNormal0.0-0.2FMercy Health – The Jewish HospitalComment on above:Result Comment: PERFORMED BY:[address] [place], [place] [phone] MEDICAL DIRECTORJAJA WHITE M.D.Performed By: #### CBC ####[address] [address] USABasophils/100 WBC Auto (Bld)Ordered By: Mario Jordan on 97-87-6054Urvnftgdq/100 WBC (Bld)Automated basophil %.[facility] & Brentwood HospitalBasophils/100 leukocytes in Blood by Automated count Ordered By: Mario Jordan on 19-72-8347Ukilxdvra/100 WBC (Bld)0.9 %Normal. [facility] Brentwood HospitalComment on above:Performed By: #### CBC ####[place] [id number] [facility] Complete Blood Count Auto Diffon 45-00-6722Bnaa Corpuscular HGB Conc32.8 g/dL Qrwiam53.5-35.6The Firsthealth Physician GroupComment on above:Performed By: #### CBC ####[address] [address] [place] NRBC%0.0 /100{WBC}Normal0-0.5The Firsthealth Physician GroupComment on above: Performed By: #### CBC ####[address] USAEosinophils Auto (Bld) [#/Vol]Ordered By: Mario Jordan on 05-27-4876Atvfbccdejc (Bld) [#/Vol]Automated eosinophil count0.0-0.45 [facility] & Brentwood HospitalEosinophils [#/volume] in Blood by Automated countOrdered By: Mario Jordan on 74-37-8412Ieyuhrbgwcy (Bld) [#/Vol]0.3 10*3/uL Normal0.0-0.45[facility] Brent[facility] HospitalComment on above:Performed By: #### CBC ####[address] [address] USAEosinophils/100 WBC Auto (Bld)Ordered By: Mario Jordan on 07-17-2024 Eosinophils/100 WBC (Bld)Automated eosinophil %.[facility] & Brentwood HospitalEosinophils/100 leukocytes in Blood by Automated countOrdered By: Mario Jordan on 68-91-7846Fssxmdqscct/100 WBC (Bld)4.8 %Normal.[facility] Brentwood HospitalComment on above:Performed By: #### CBC ####[place] [address] USAErythrocyte distribution width Auto (RBC) [Ratio]Ordered By: Mario Jordan on 17-11-5791Mepekykkfbf distribution width (RBC) [Ratio]Erythrocyte distribution width [Ratio] by Automated count High12.0-14.8[facility] & Brentwood HospitalErythrocyte distribution width [Ratio] by Automated countOrdered By: Mario Jordan on 75-71-2499Udylbcmrxlq distribution width (RBC) [Ratio]18.5 %High12.0-14.8[facility] Brentwood HospitalComment on above:Performed By: #### CBC ####[address] [address] USAErythrocytes [#/volume] in Blood by Automated countOrdered By: Mario Jordan on 35-04-1933QUZ (Bld) [#/Vol]2.88 10*6/uLLow3.90-5.60[facility] HospitalComment on above:Performed By: #### CBC ####[place] [address] USAHematocrit Auto (Bld) [Volume fraction]Ordered By: Mario Jordan on 66-00-8929Ovllceuryt (Bld) [Volume fraction]Hematocrit [Volume Fraction] of Blood by Automated yrfsaQoa45.8-50.0[facility] & Brentwood HospitalHematocrit [Volume Fraction] of Blood by Automated countOrdered By: Mario Jordan on 16-82-7056Knjqgmtswn (Bld) [Volume fraction]25.8 %Low38.8-50.0[facility] Brentwood HospitalComment on above:Performed By: #### CBC ####[address] [place] [address] USAHemoglobin [Mass/volume] in BloodOrdered By: Mario Jordan on 08-35-0025Nmhcysforh (Bld) [Mass/Vol]Hemoglobin [Mass/volume] in GnlvxHbm50.0-17.0[facility] & Brentwood HospitalHemoglobin (Bld) [Mass/Vol]8.5 g/dLLow13.0-17.0[facility] HospitalComment on above:Performed By: #### CBC ####[address] USALeukocytes [#/volume] corrected for nucleated erythrocytes in Blood by Automated counOrdered By: Mario Jordan on 51-55-1913YQW corrected for nucl RBC Auto (Bld) [#/Vol]Leukocytes [#/volume] corrected for nucleated erythrocytes in Blood by Automated coun4.1-10.5FMercy Health – The Jewish HospitalWBC corrected for nucl RBC Auto (Bld) [#/Vol]7.1 10*3/uL4.1-10.5 [facility] Brentwood HospitalLeukocytes [#/volume] in Blood by Automated countOrdered By: Mario Jordan on 16-79-0246AMC (Bld) [#/Vol]7.1 10*3/uLNormal 4.1-10.5FMercy Health – The Jewish HospitalComment on above:Performed By: #### CBC ####[address] [id number] [place] Lymphocytes Auto (Bld) [#/Vol]Ordered By: Mario Jordan on 14-57-6629Wvahhikxoev (Bld) [#/Vol]Lymphocytes [#/volume] in Blood by Automated count1.00-4.8[facility] & Brentwood HospitalLymphocytes [#/volume] in Blood by Automated count Ordered By: Mario Jordan on 15-87-2256Mgjujreurop (Bld) [#/Vol]1.5 10*3/uLNormal 1.00-4.8[facility] Brentwood HospitalComment on above:Performed By: #### CBC ####[address] [address] [facility] Lymphocytes/100 WBC Auto (Bld)Ordered By: Mario Jordan on 07-17-2024 Lymphocytes/100 WBC (Bld)Lymphocytes/100 leukocytes in Blood by Automated count. [facility] & Brentwood HospitalLymphocytes/100 leukocytes in Blood by Automated countOrdered By: Mario Jordan on 34-08-0985Vtxubanpucs/100 WBC (Bld) 20.4 %Normal.[facility] Brentwood HospitalComment on above:Performed By: #### CBC ####[facility] [facility] [place] Auto (RBC) [Entitic mass]Ordered By: Mario Jordan on 93-13-8649XBZ (RBC) [Entitic mass]MCH [Entitic mass] by Automated count27.5-35.2FGlenbeigh Hospital [Entitic mass] by Automated countOrdered By: Mario Jordan on 99-64-7005SBT (RBC) [Entitic mass]29.4 euMrhhsz64.5-35.2FMercy Health – The Jewish HospitalComment on above:Performed By: #### CBC ####[address] [place] [id number] [facility] Auto (RBC) [Mass/Vol] Ordered By: Mario Jordan on 41-59-3761AUUM (RBC) [Mass/Vol]MCHC [Mass/volume] by Automated count32.5-35.6FGalion HospitalHC (RBC) [Mass/Vol] 32.8 g/dL32.5-35.6FMercy Health [facility] Auto (RBC) [Entitic vol] Ordered By: Mario Jordan on 94-84-5878HTU (RBC) [Entitic vol]MCV [Entitic volume] by Automated count83.5-101[facility] [Entitic volume] by Automated countOrdered By: Mario Jordan on 24-71-4550VCQ (RBC) [Entitic vol] 89.8 wXCkoabq34.5-101[facility] Brentwood HospitalComment on above:Performed By: #### CBC ####[address] [id number] USAMonocytes Auto (Bld) [#/Vol]Ordered By: Mario Jordan on 07-17-2024 Monocytes (Bld) [#/Vol]Automated blood monocyte count0.0-0.8[facility] Brentwood HospitalMonocytes [#/volume] in Blood by Automated countOrdered By: Mario Jordan on 81-72-9472Fnidefynd (Bld) [#/Vol]0.6 10*3/uLNormal0.0-0.8[facility] HospitalComment on above:Performed By: #### CBC ####[place] [address] USAMonocytes/100 WBC Auto (Bld)Ordered By: Mario Jordan on 03-08-5353Gdgyufpaz/100 WBC (Bld)Automated monocyte %.[facility] & Brentwood HospitalMonocytes/100 leukocytes in Blood by Automated countOrdered By: Mario Jordan on 10-14-1599Pzeehpjle/100 WBC (Bld)8.0 %Normal.[facility] Brentwood HospitalComment on above:Performed By: #### CBC ####[address] Neutrophils Auto (Bld) [#/Vol]Ordered By: Mario Jordan on 35-61-8486Jtipdxzfnml (Bld) [#/Vol]Neutrophils [#/volume] in Blood by Automated count1.8-7.7FMercy Health – The Jewish HospitalNeutrophils [#/volume] in Blood by Automated countOrdered By: Mario Jordan on 19-47-8344Nddsvzfqcgt (Bld) [#/Vol]4.7 10*3/uLNormal1.8-7.7 [facility] HospitalComment on above:Performed By: #### CBC ####[address] Neutrophils/100 WBC Auto (Bld)Ordered By: Mario Jordan on 07-17-2024 Neutrophils/100 WBC (Bld)Automated neutrophil %.[facility] & Brentwood HospitalNeutrophils/100 leukocytes in Blood by Automated countOrdered By: Mario Jordan on 66-23-1604Yrdzdeeptrb/100 WBC (Bld)65.9 %Normal.[facility] Brentwood HospitalComment on above:Performed By: #### CBC ####[address] [place] [id number] USANucleated erythrocytes [Presence] in Blood by Automated countOrdered By: Mario Jordan on 07-17-2024 Nucleated RBC Auto Ql (Bld)Nucleated erythrocytes [Presence] in Blood by Automated count0-0.5FMercy Health – The Jewish HospitalNucleated RBC Auto Ql (Bld) 0.0 /100{WBC}0-0.5FMercy Health – The Jewish HospitalPlatelet mean volume Auto (Bld) [Entitic vol]Ordered By: Mario Jordan on 48-36-6485Csafpuxs mean volume (Bld) [Entitic vol]Platelet mean volume [Entitic volume] in Blood by Automated count6.6-10.1FMercy Health – The Jewish HospitalPlatelet mean volume [Entitic volume] in Blood by Automated countOrdered By: Mario Jordan on 26-64-2982Dfndpjqe mean volume (Bld) [Entitic vol]8.2 fLNormal6.6-10.1FMercy Health – The Jewish HospitalComment on above:Performed By: #### CBC ####[place] [id number] USAPlatelets Auto (Bld) [#/Vol]Ordered By: Mario Jordan on 10-39-3765Vabqzlzxb (Bld) [#/Vol]Platelets [#/volume] in Blood by Automated qneft872-994UwvgkopboSuburban Community Hospital & Brentwood HospitalPlatelets [#/volume] in Blood by Automated countOrdered By: Mario Jordan on 07-17-2024 Platelets (Bld) [#/Vol]164 10*3/uMHkguzk935-464Tkmjayzwo[address] [place] [address] Comment on above:Performed By: #### CBC ####[place] [id number] USARBC Auto (Bld) [#/Vol]Ordered By: Mario Jordan on 83-64-5412XIZ (Bld) [#/Vol]Erythrocytes [#/volume] in Blood by Automated countLow3.90-5.60[facility] & Brentwood HospitalWBC Auto (Bld) [#/Vol]Ordered By: Mario Jordan on 15-39-8676PCY (Bld) [#/Vol]Leukocytes [#/volume] in Blood by Automated count4.1-10.5FMercy Health – The Jewish HospitalAlanine aminotransferase [Enzymatic activity/volume] in Serum or PlasmaOrdered By: Mario Jordan on 32-56-2338JGW [Catalytic activity/Vol]Alanine aminotransferase [Enzymatic activity/volume] in Serum or Plasma7-52[facility] & Brentwood HospitalALT [Catalytic activity/Vol]14 U/LNormal7-52[facility] & Brentwood HospitalComment on above:Performed By: #### CBC, CMP ####[facility] [address] [place] [address] USAAlbumin [Mass/volume] in Serum or Plasma by Bromocresol green (BCG) dye binding methoOrdered By: Mario Jordan on 07-16-2024 Albumin BCG dye [Mass/Vol]Albumin [Mass/volume] in Serum or Plasma by Bromocresol green (BCG) dye binding methoLow3.5-5.7FMercy Health – The Jewish HospitalAlbumin BCG dye [Mass/Vol]2.8 g/dLLow3.5-5.7FMercy Health – The Jewish HospitalAlkaline phosphatase [Enzymatic activity/volume] in Serum or PlasmaOrdered By: Mario Jordan on 53-42-7665IVM [Catalytic activity/Vol]Alkaline phosphatase [Enzymatic activity/volume] in Serum or Wpjutk61-490WfcfvoyxfSuburban Community Hospital & Brentwood HospitalALP [Catalytic activity/Vol]100 U/WFyixxm75-357KabswtwhrSuburban Community Hospital & Brentwood HospitalComment on above:Performed By: #### CBC, CMP ####[facility] [address] [place] [address] USAAspartate aminotransferase [Enzymatic activity/volume] in Serum or PlasmaOrdered By: Mario Jordan on 23-35-9802AVV [Catalytic activity/Vol]Aspartate aminotransferase [Enzymatic activity/volume] in Serum or Ngticp80-03ElsjdzjzkSuburban Community Hospital & Brentwood HospitalAST [Catalytic activity/Vol]22 U/ZEsoibz75-15OcyvilzxiSuburban Community Hospital & Brentwood Hospital Comment on above:Performed By: #### CBC, CMP ####[facility] F[address] [place] [address] USABilirubin.total [Mass/volume] in Serum or PlasmaOrdered By: Mario Jordan on 62-62-0739Twwlhikwg [Mass/Vol] Bilirubin.total [Mass/volume] in Serum or Plasma0.3-1.0[facility] & Brentwood HospitalBilirubin [Mass/Vol]0.4 mg/dLNormal0.3-1.0[facility] & Brentwood HospitalComment on above:Performed By: #### CBC, CMP ####[facility] [address] [place] [address] USACalcium [Mass/volume] in Serum or PlasmaOrdered By: Mario Jordan on 55-41-9926Kgoekop [Mass/Vol] Calcium [Mass/volume] in Serum or PlasmaLow8.6-10.3FMercy Health – The Jewish HospitalCalcium [Mass/Vol]8.2 mg/dLLow8.6-10.3FMercy Health – The Jewish Hospital Comment on above:Performed By: #### CBC, CMP ####[facility] M[address] [place] [address] USACarbon dioxide, total [Moles/volume] in Serum or PlasmaOrdered By: Mario Jordan on 57-15-7938FA4 [Moles/Vol]Carbon dioxide, total [Moles/volume] in Serum or Dvpnmz52.0-31.0[facility] Brentwood HospitalCO2 [Moles/Vol]26.5 mmol/MIfkwtl07.0-31.0[facility] & Brentwood HospitalComment on above:Performed By: #### CBC, CMP ####[facility] Kxl[address] [place] [address] USAChloride [Moles/volume] in Serum or PlasmaOrdered By: Mario Jordan on 18-39-9737Xlxluduh [Moles/Vol]Chloride [Moles/volume] in Serum or Hygdvk43-268IdzepkdjrSuburban Community Hospital & Brentwood HospitalChloride [Moles/Vol]104 mmol/VLlbzrz16-781DokzppbzmSuburban Community Hospital & Brentwood HospitalComment on above:Performed By: #### CBC, CMP ####[address] [address] USAComplete Blood Count Auto Diffon 26-55-4768Jacwhdfuq (Bld) [#/Vol]0.0 10*3/uLNormal0.0-0.2The Firsthealth Physician GroupComment on above:Result Comment: PERFORMED BY:[address]ETRAJAMEENA, [place] [phone] MEDICAL DIRECTORJAJA CATES M.D.Performed By: #### CBC, CMP ####[place] [address] [place] Basophils/100 WBC (Bld)0.6 %Normal.The Firsthealth Physician GroupComment on above:Performed By: #### CBC, CMP ####[address] [address] USAEosinophils (Bld) [#/Vol]0.3 10*3/uLNormal0.0-0.45 The Firsthealth Physician GroupComment on above:Performed By: #### CBC, CMP ####[place] [address] [place] Eosinophils/100 WBC (Bld)4.0 %Normal.The Firsthealth Physician GroupComment on above:Performed By: #### CBC, CMP ####[address] [address] USAErythrocyte distribution width (RBC) [Ratio]18.7 % High12.0-14.8The Firsthealth Physician GroupComment on above:Performed By: #### CBC, CMP ####[address] [address] USAHematocrit (Bld) [Volume fraction]26.3 %Low38.8-50.0The Firsthealth Physician GroupComment on above:Performed By: #### CBC, CMP ####[place] [address] USAHemoglobin (Bld) [Mass/Vol]8.6 g/dLLow 13.0-17.0The Firsthealth Physician GroupComment on above:Performed By: #### CBC, CMP ####[place] [address] [place] Lymphocytes (Bld) [#/Vol]1.3 10*3/uLNormal1.00-4.8The [facility] Comment on above:Performed By: #### CBC, CMP ####[place] [address] USALymphocytes/100 WBC (Bld)16.9 %Normal. The Firsthealth Physician GroupComment on above:Performed By: #### CBC, CMP ####[address] StreetH (RBC) [Entitic mass]29.9 lcUgykdi39.5-35.2The Firsthealth Physician GroupComment on above:Performed By: #### CBC, CMP ####[address]V (RBC) [Entitic vol]91.3 iZAjmkiv83.5-101 The Firsthealth Physician GroupComment on above:Performed By: #### CBC, CMP ####[place] [address] USAMean Corpuscular HGB Conc32.7 g/wYEwazec93.5-35.6The Firsthealth Physician GroupComment on above:Performed By: #### CBC, CMP ####[place] [address] USAMonocytes (Bld) [#/Vol]0.5 10*3/uLNormal 0.0-0.8The Firsthealth Physician GroupComment on above:Performed By: #### CBC, CMP ####[place] [address] [place] Monocytes/100 WBC (Bld)6.5 %Normal.The Firsthealth Physician GroupComment on above:Performed By: #### CBC, CMP ####[place] [address] USANeutrophils (Bld) [#/Vol]5.7 10*3/uLNormal1.8-7.7The Firsthealth Physician GroupComment on above:Performed By: #### CBC, CMP ####[place] [address] [place] Neutrophils/100 WBC (Bld)72.0 %Normal.The Firsthealth Physician GroupComment on above:Performed By: #### CBC, CMP ####[place] [address] USANRBC%0.0 /100{WBC}Normal0-0.5The Firsthealth Physician GroupComment on above:Performed By: #### CBC, CMP ####[place] [address] USAPlatelet mean volume (Bld) [Entitic vol]8.3 fLNormal6.6-10.1The Firsthealth Physician GroupComment on above: Performed By: #### CBC, CMP ####[place] [address] USAPlatelets (Bld) [#/Vol]151 10*3/bVKvzbbt838-707Fnd Firsthealth Physician GroupComment on above:Performed By: #### CBC, CMP ####[place] [address] USARBC (Bld) [#/Vol]2.88 10*6/uLLow3.90-5.60The Firsthealth Physician GroupComment on above:Performed By: #### CBC, CMP ####[place] [address] USAWBC (Bld) [#/Vol]7.9 10*3/uLNormal4.1-10.5The Firsthealth Physician GroupComment on above:Performed By: #### CBC, CMP ####[address] Comprehensive Metabolic Panelon 15-25-1603Pdbzxhl [Mass/Vol]2.8 g/dLLow3.5-5.7 The Firsthealth Physician GroupComment on above:Performed By: #### CBC, CMP ####[place] [address] [place] [address] [place] Creatinine Clr Calc Cjrepcym16.36NormAdventHealth Wauchula Physician GroupComment on above:Result Comment: PERFORMED BY:[address] [place], [place] [phone] MEDICAL RANCHO WHITE M.D.Performed By: #### CBC, CMP ####[address] [address] USAGFR/1.73 sq M.predicted MDRD (S/P/Bld) [Vol rate/Area]mL/min/{1.73_m2}NormalThe Firsthealth Physician GroupComment on above: Performed By: #### CBC, CMP ####[place] [address] [place] [address] USACreatinine [Mass/volume] in Serum or PlasmaOrdered By: Mario Jordan on 81-18-2885Pqmtewufjm [Mass/Vol]Creatinine [Mass/volume] in Serum or Plasma0.70-1.30[facility]wood HospitalCreatinine [Mass/Vol] 1.15 mg/dLNormfl0.70-1.30[facility] Brentwood HospitalComment on above: Performed By: #### CBC, CMP ####[address] [address] USAGlobulin Calc (S) [Mass/Vol]Ordered By: Mario Jordan on 27-16-9950Ybarbqqc (S) [Mass/Vol]Serum globulin measurement by calculation (mass/volume)[facility] HospitalGlucose [Mass/volume] in Serum or PlasmaOrdered By: Mario Jordan on 12-99-0295Lmkqfml [Mass/Vol]Glucose [Mass/volume] in Serum or Hciwfy42-195LossougyuSuburban Community Hospital & Brentwood HospitalGlucose [Mass/Vol]86 mg/fTIxcgly66-310SdoyxesnwSuburban Community Hospital & Brentwood HospitalComment on above: ADA recommended reference rangeRandom [...] recommended reference rangePerformed By: #### CBC, CMP ####[facility] [place] [address] USANo Panel InformationOrdered By: Mario Jordan on 00-60-3886Qbblynosb GFR (CKD-EPI)> 60.0 mL/MinSuburban Community Hospital & Brentwood HospitalPharmacy Creatinine Clearance (Chem51.36[facility]> 60.0 mL/MinSuburban Community Hospital & Brentwood Hospital51.36[facility] Brentwood HospitalPotassium [Moles/volume] in Serum or PlasmaOrdered By: Mario Jordan on 33-05-3441Vlmenvjqa [Moles/Vol]Potassium [Moles/volume] in Serum or Plasma3.5-5.1FMercy Health – The Jewish HospitalPotassium [Moles/Vol]3.6 mmol/LNormal3.5-5.1FMercy Health – The Jewish HospitalComment on above:Performed By: #### CBC, CMP ####[address] [address] USAProtein [Mass/volume] in Serum or PlasmaOrdered By: Mario Jordan on 01-84-5483Exncwbu [Mass/Vol] Protein [Mass/volume] in Serum or PlasmaLow6.4-8.9[facility] Brentwood HospitalProtein [Mass/Vol]5.5 g/dLLow6.4-8.9[facility] Comment on above:Performed By: #### CBC, CMP ####[place] [address] [place] [address] USASerum globulin measurement by calculation (mass/volume)Ordered By: Mario Jordan on 25-34-8338Xwzvbdjo (S) [Mass/Vol]2.7 g/dLNoCincinnati Children's Hospital Medical CenterComment on above: Performed By: #### CBC, CMP ####[place] [address] [place] [address] USASerum or plasma albumin/globulin mass ratioOrdered By: Mario Jordan on 32-15-1774Gqntsut/Globulin [Mass ratio]Serum or plasma albumin/globulin mass ratioSuburban Community Hospital & Brentwood HospitalAlbumin/Globulin [Mass ratio]1.0 {ratio}NormalSuburban Community Hospital & Brentwood HospitalComment on above: Performed By: #### CBC, CMP ####[address] [address] USASerum or plasma anion gap determinationOrdered By: Mario Jordan on 17-48-1782Xcfsr gap [Moles/Vol]Serum or plasma anion gap determination6.0-15.0[facility] & Brentwood HospitalAnion gap [Moles/Vol]10.1 mmol/LNormal6.0-15.0[facility] Brentwood HospitalComment on above:Performed By: #### CBC, CMP ####[place] [id number] USASodium [Moles/volume] in Serum or PlasmaOrdered By: Mario Jordan on 21-73-4901Bverdw [Moles/Vol]Sodium [Moles/volume] in Serum or Kqztdc536-060 [facility] Hospitalodium [Moles/Vol]137 mmol/GIkmftb793-157 [facility] & Brentwood HospitalComment on above:Performed By: #### CBC, CMP ####[address] [address] USAUrea nitrogen [Mass/volume] in Serum or PlasmaOrdered By: Mario Jordan on 07-16-2024 Urea nitrogen [Mass/Vol]Urea nitrogen [Mass/volume] in Serum or PlasmaHigh7-25 [facility] Brentwood HospitalUrea nitrogen [Mass/Vol]26 mg/dLHigh7-25 [facility] & Brentwood HospitalComment on above:Performed By: #### CBC, CMP ####[address] [address] USAX-ray reportOrdered By: Shaquille Mahonye on 30-69-9482Byumq reportSuburban Community Hospital & Brentwood Hospital Work Phone: xr chest 1V portableon 19-48-3561DN chest 1V portable NormalThe Firsthealth Physician GroupAerobic Cultureon 65-97-0709Srviwpy Culture NormalThe Firsthealth Physician GroupComment on above:Performed By: #### AERC ####[address] [address] USAAerobic cultureOrdered By: Bryce Villeda on 26-34-0018Sdztqomc identified Aer cx Nom (Unsp spec)Aerobic cultureSuburban Community Hospital & Brentwood HospitalBacteria identified Aer cx Nom (Unsp spec)No Growth 2 DaysSuburban Community Hospital & Brentwood HospitalAnaerobic cultureOrdered By: Bryce Villeda on 97-35-9136Feqqvajn identified Anaer cx Nom (Unsp spec)No Anaerobes Isolated 3 DaysSuburban Community Hospital & Brentwood HospitalComplete Blood Count Auto Diffon 28-91-9355Bkpawysqf (Bld) [#/Vol]0.1 10*3/uLNormal0.0-0.2The Firsthealth Physician GroupComment on above:Result Comment: PERFORMED BY:[address] [place], [place] [phone] MEDICAL DIRECTORJAJA WHITE M.D.Performed By: #### CMP, CBC ####[address] [address] USABasophils/100 WBC (Bld)0.5 %Normal.The Firsthealth Physician GroupComment on above:Performed By: #### CMP, CBC ####[address] [address] [place] Eosinophils (Bld) [#/Vol]0.4 10*3/uLNormal0.0-0.45The [facility] Comment on above:Performed By: #### CMP, CBC ####[address] [address] USAEosinophils/100 WBC (Bld)3.1 %Normal. The Firsthealth Physician GroupComment on above:Performed By: #### CMP, CBC ####[address] [address] [place] Erythrocyte distribution width (RBC) [Ratio]18.7 %High12.0-14.8The Firsthealth Physician GroupComment on above:Performed By: #### CMP, CBC ####[place] [address] USAHematocrit (Bld) [Volume fraction]24.7 %Low38.8-50.0The Firsthealth Physician GroupComment on above:Performed By: #### CMP, CBC ####[place] [address] USAHemoglobin (Bld) [Mass/Vol]8.0 g/dLLow13.0-17.0The Firsthealth Physician GroupComment on above:Performed By: #### CMP, CBC ####[place] [address] [place] Lymphocytes (Bld) [#/Vol]1.2 10*3/uLNormal1.00-4.8The [facility] Comment on above:Performed By: #### CMP, CBC ####[place] [address] USALymphocytes/100 WBC (Bld)10.9 %Normal. The Firsthealth Physician GroupComment on above:Performed By: #### CMP, CBC ####[place] [address] USAMCH (RBC) [Entitic mass]29.4 dtXwmjro15.5-35.2The Firsthealth Physician GroupComment on above:Performed By: #### CMP, CBC ####[place] [address] USAMCV (RBC) [Entitic vol]90.4 dPWenmyq90.5-101 The [facility]health Physician GroupComment on above:Performed By: #### CMP, CBC ####[place] [address] USAMean Corpuscular HGB Conc32.5 g/iBRxsjfi51.5-35.6The First[facility] Physician GroupComment on above:Performed By: #### CMP, CBC ####[place] [address] USAMonocytes (Bld) [#/Vol]0.7 10*3/uLNormal 0.0-0.8The First[facility] Physician GroupComment on above:Performed By: #### CMP, CBC ####[place] [address] [place] Monocytes/100 WBC (Bld)6.0 %Normal.The Firsthealth Physician GroupComment on above:Performed By: #### CMP, CBC ####[place] [address] USANeutrophils (Bld) [#/Vol]8.9 10*3/uLHigh1.8-7.7The Firsthealth Physician GroupComment on above:Performed By: #### CMP, CBC ####[place] [address] [place] Neutrophils/100 WBC (Bld)79.5 %Normal.The [facility] Physician GroupComment on above:Performed By: #### CMP, CBC ####[place] [address] USANRBC%0.0 /100{WBC}Normal0-0.5The Firsthealth Physician GroupComment on above:Performed By: #### CMP, CBC ####[place] [address] USAPlatelet mean volume (Bld) [Entitic vol]8.0 fLNormal6.6-10.1The First[facility] Physician GroupComment on above: Performed By: #### CMP, CBC ####[place] [address] USAPlatelets (Bld) [#/Vol]153 10*3/zVCqqzzq983-922Vpe First[facility] Physician GroupComment on above:Performed By: #### CMP, CBC ####[place] [address] USARBC (Bld) [#/Vol]2.73 10*6/uLLow3.90-5.60The [facility] Physician GroupComment on above:Performed By: #### CMP, CBC ####[address] [address] USAWBC (Bld) [#/Vol]11.2 10*3/uLHigh4.1-10.5The Firsthealth Physician GroupComment on above:Performed By: #### CMP, CBC ####[address] [address] [facility] Comprehensive Metabolic Panelon 77-59-9871Evvpnnw [Mass/Vol]2.7 g/dLLow3.5-5.7 The Firsthealth Physician GroupComment on above:Performed By: #### CMP, CBC ####[address] [address] [facility] Albumin/Globulin [Mass ratio]1.0 {ratio}NormalThe [facility] Phys[facility] Group Comment on above:Performed By: #### CMP, CBC ####[address] [address] USAALP [Catalytic activity/Vol]91 U/L Eritiy27-797Sjx First[facility] Physician GroupComment on above:Performed By: #### CMP, CBC ####[address] [address] USAALT [Catalytic activity/Vol]8 U/LNormal7-52The [facility] Comment on above:Performed By: #### CMP, CBC ####[address] [address] USAAnion gap [Moles/Vol]9.7 mmol/LNormal 6.0-15.0The [facility] Physician GroupComment on above:Performed By: #### CMP, CBC ####[address] [address] USAAST [Catalytic activity/Vol]17 U/ULlfhxw25-04Bnd [facility] Physician GroupComment on above:Performed By: #### CMP, CBC ####[address] [address] USABilirubin [Mass/Vol]0.4 mg/dLNormal0.3-1.0The First[facility] Physician GroupComment on above:Performed By: #### CMP, CBC ####[address] [place] [address] USACalcium [Mass/Vol]8.2 mg/dLLow8.6-10.3The [facility] Physician GroupComment on above: Performed By: #### CMP, CBC ####[place] [address] USAChloride [Moles/Vol]103 mmol/ZViodyu51-131Ptp [facility] Physician [facility]aird HospitalComment on above:Performed By: #### CMP, CBC ####[place] [address] USACO2 [Moles/Vol]25.8 mmol/WVlwvtf40.0-31.0The First[facility] Physician GroupComment on above:Performed By: #### CMP, CBC ####[place] [address] USACreatinine [Mass/Vol]1.44 mg/dLHigh0.70-1.30The [facility] Physician GroupComment on above:Performed By: #### CMP, CBC ####[place] [address] [place] Creatinine Clr Calc Cxbumtlm08.88NoAsheville Specialty Hospital Physician GroupComment on above:Result Comment: PERFORMED BY:[address] [place], [place] [phone] MEDICAL DIRECTORJAJA WHITE M.D.Performed By: #### CMP, CBC ####[address] [address] USAEstimated GFR48.213 mL/MinNoAsheville Specialty Hospital Physician Laird HospitalComment on above:Performed By: #### CMP, CBC ####[address] [address] USAGlobulin (S) [Mass/Vol]2.7 g/dLCampbellton-Graceville Hospital Physician Laird HospitalComment on above:Performed By: #### CMP, CBC ####[address] [address] USAGlucose [Mass/Vol]108 mg/yXRzkg09-751Git [facility] Comment on above:Result Comment: Random Glucose Reference Range is dependent on time and content of last meal. Glucose of more than 200 mg/dL in a nonstressed, ambulatory subject supports the diagnosis of Diabetes Mellitus. ADA recommended reference rangePerformed By: #### CMP, CBC ####[address] [place] [address] USAPotassium [Moles/Vol]3.5 mmol/LNormal 3.5-5.1The [facility] Physician GroupComment on above:Performed By: #### CMP, CBC ####[address] [place] [address] [place] Protein [Mass/Vol]5.4 g/dLLow6.4-8.9The [facility] Physician Laird HospitalComment on above:Performed By: #### CMP, CBC ####[address] [place] [address] USASodium [Moles/Vol]135 mmol/BVey500-175Fao [facility] Physician Laird HospitalComment on above:Performed By: #### CMP, CBC ####[address] [place] [address] USAUrea nitrogen [Mass/Vol]32 mg/dLHigh7-25The [facility] Physician Laird HospitalComment on above: Performed By: #### CMP, CBC ####[place] [id number] USAGram stain microscopyOrdered By: Bryce Villeda on 46-83-0746Nsybxynwtrz observation Gram stain Nom (Unsp spec)Gram stain microscopySuburban Community Hospital & Brentwood HospitalMicroscopic observation Gram stain Nom (Unsp spec)[facility] & Brentwood HospitalVancomycin [Mass/volume] in Serum or Plasma --troughOrdered By: Mario Jordan on 69-83-9196Kwkzdgxscs trough [Mass/Vol]Serum or plasma trough vancomycin zshszCruh80.0-20.0[facility] & Brentwood HospitalVancomycin trough [Mass/Vol]38.7 ug/yLFdcx95.0-20.0[facility] Brentwood HospitalComment on above:Last dose: -Vancomycin,Troughon 30-12-4777Ygczfifuso,Lkvftn47.7 ug/dGEqhm88.0-20.0The [facility] Comment on above:Result Comment: Last dose: -PERFORMED BY:[address] [place]LIFFSIDE [place], [place] [phone] MEDICAL DIRECTORJAJA CATES M.D.Performed By: #### VANCT ####[address] [address] USACT lower leg RT wo conon 39-89-9259ZJ lower leg RT wo conNormalThe [facility] Physician [facility] Complete Blood Count Auto Diffon 99-66-5283Dmozyocmk (Bld) [#/Vol]0.0 10*3/uL Normal0.0-0.2The First[facility] Physician GroupComment on above:Result Comment: PERFORMED BY:[address] ELDRIDGEESB[place], [place] [phone] MEDICAL DIRECTORJAJA CATES M.D. Performed By: #### CBC, CMP ####[place] [id number] USABasophils/100 WBC (Bld)0.2 %Normal.The First[facility] Physician GroupComment on above:Performed By: #### CBC, CMP ####[place] [address] USAEosinophils (Bld) [#/Vol]0.2 10*3/uLNormal0.0-0.45The First[facility] Physician GroupComment on above: Performed By: #### CBC, CMP ####[place] [address] USAEosinophils/100 WBC (Bld)1.4 %Normal.The [facility] Physician GroupComment on above:Performed By: #### CBC, CMP ####[place] [address] USAErythrocyte distribution width (RBC) [Ratio]18.4 %High12.0-14.8The [facility] Comment on above:Performed By: #### CBC, CMP ####[address] [address] USAHematocrit (Bld) [Volume fraction]24.0 %Low38.8-50.0The [facility] Physician GroupComment on above:Performed By: #### CBC, CMP ####[place] [address] USAHemoglobin (Bld) [Mass/Vol]7.8 g/dLLow13.0-17.0The [facility] Comment on above:Performed By: #### CBC, CMP ####[place] [address] USALymphocytes (Bld) [#/Vol]1.2 10*3/uL Normal1.00-4.8The [facility] Physician GroupComment on above:Performed By: #### CBC, CMP ####[place] [address] USALymphocytes/100 WBC (Bld)7.4 %Normal.The [facility] Physician GroupComment on above:Performed By: #### CBC, CMP ####[place] [address] USAMCH (RBC) [Entitic mass]29.8 zmMwqlae67.5-35.2The [facility] Physician GroupComment on above:Performed By: #### CBC, CMP ####[place] [address] USAMCV (RBC) [Entitic vol]91.5 jSLgshik64.5-101The [facility] Physician GroupComment on above:Performed By: #### CBC, CMP ####[place] [address] USAMean Corpuscular HGB Conc32.5 g/wBQahgaj54.5-35.6The [facility] Physician GroupComment on above:Performed By: #### CBC, CMP ####[place] [address] [place] Monocytes (Bld) [#/Vol]1.0 10*3/uLHigh0.0-0.8The [facility] Comment on above:Performed By: #### CBC, CMP ####[address] [address] USAMonocytes/100 WBC (Bld)6.1 %Normal.The [facility]health Physician GroupComment on above:Performed By: #### CBC, CMP ####[address] [address] [place] Neutrophils (Bld) [#/Vol]13.3 10*3/uLHigh1.8-7.7The [facility] Comment on above:Performed By: #### CBC, CMP ####[address] [address] USANeutrophils/100 WBC (Bld)84.9 %Normal. The [facility] Physician GroupComment on above:Performed By: #### CBC, CMP ####[address] [address] USANRBC% 0.1 /100{WBC}Normal0-0.5The First[facility] Physician GroupComment on above:Performed By: #### CBC, CMP ####[address] [address] USAPlatelet mean volume (Bld) [Entitic vol]7.9 fLNormal6.6-10.1The [facility] Physician GroupComment on above:Performed By: #### CBC, CMP ####[address] [address] [place] Platelets (Bld) [#/Vol]147 10*3/qLYwu588-300Okj [facility] Physician GroupComment on above:Performed By: #### CBC, CMP ####[address] [address] USARBC (Bld) [#/Vol]2.63 10*6/uLLow3.90-5.60The [facility] Physician GroupComment on above:Performed By: #### CBC, CMP ####[address] [address] USAWBC (Bld) [#/Vol]15.7 10*3/uLHigh4.1-10.5The [facility] Physician GroupComment on above:Performed By: #### CBC, CMP ####[address] [address] USAComprehensive Metabolic Panelon 27-97-9563Aldqnvr [Mass/Vol]2.7 g/dLLow3.5-5.7The Firsthealth Physician GroupComment on above: Performed By: #### CBC, CMP ####[place] [address] USAAlbumin/Globulin [Mass ratio]1.1 {ratio}NormalThe Firsthealth Physician GroupComment on above:Performed By: #### CBC, CMP ####[place] [address] USAALP [Catalytic activity/Vol]79 U/IEcttia81-440Pfk Firsthealth Physician GroupComment on above:Performed By: #### CBC, CMP ####[place] [address] USAALT [Catalytic activity/Vol]4 U/LLow7-52The Firsthealth Physician GroupComment on above:Performed By: #### CBC, CMP ####[place] [id number] USAAnion gap [Moles/Vol]12.2 mmol/LNormal6.0-15.0The Firsthealth Physician GroupComment on above:Performed By: #### CBC, CMP ####[place] [id number] USAAST [Catalytic activity/Vol]11 U/TRow78-62Jbp Firsthealth Physician GroupComment on above:Performed By: #### CBC, CMP ####[place] [address] [place] Bilirubin [Mass/Vol]0.4 mg/dLNormal0.3-1.0The Firsthealth Physician GroupComment on above:Performed By: #### CBC, CMP ####[place] [address] USACalcium [Mass/Vol]8.2 mg/dLLow8.6-10.3The Firsthealth Physician GroupComment on above:Performed By: #### CBC, CMP ####[place] [address] [place] Chloride [Moles/Vol]101 mmol/XNgprcq13-818Kmg First[facility] Physician GroupComment on above:Performed By: #### CBC, CMP ####[place] [address] USACO2 [Moles/Vol]22.1 mmol/PHsafsi32.0-31.0The Firsthealth Physician GroupComment on above:Performed By: #### CBC, CMP ####[place] [phone] [facility] Creatinine [Mass/Vol]1.63 mg/dLHigh0.70-1.30The Firsthealth Physician GroupComment on above:Performed By: #### CBC, CMP ####[place] [address] USACreatinine Clr Calc Pjdgrrsp13.75NormAdventHealth Wauchula Physician GroupComment on above:Result Comment: PERFORMED BY:[address] [place], [place] [phone] MEDICAL DIRECTORJAJA CATES M.D.Performed By: #### CBC, CMP ####[address] Estimated GFR41.809 mL/MinNoAsheville Specialty Hospital Physician Laird HospitalComment on above: Performed By: #### CBC, CMP ####[place] [phone] USAGlobulin (S) [Mass/Vol]2.5 g/dLCampbellton-Graceville Hospital Physician Laird HospitalComment on above:Performed By: #### CBC, CMP ####[place] [address] USAGlucose [Mass/Vol]81 mg/nETpjzrb13-960Khg Firsthealth Physician GroupComment on above:Result Comment: Random Glucose Reference Range is dependent on time and content of last meal. Glucose of more than 200 mg/dL in a nonstressed, ambulatory subject supports the diagnosis of Diabetes Mellitus. ADA recommended reference rangePerformed By: #### CBC, CMP ####[facility] [place] [address] USAPotassium [Moles/Vol]3.3 mmol/LLow3.5-5.1The [facility] Comment on above:Performed By: #### CBC, CMP ####[address] [address] [place] [address] USAProtein [Mass/Vol]5.2 g/dLLow6.4-8.9 The Firsthealth Physician GroupComment on above:Performed By: #### CBC, CMP ####[address] [address] [place] [address] USASodium [Moles/Vol]132 mmol/AJri641-035Xcn Firsthealth Physician GroupComment on above: Performed By: #### CBC, CMP ####[address] [address] USAUrea nitrogen [Mass/Vol]34 mg/dLHigh7-25The Firsthealth Physician GroupComment on above:Performed By: #### CBC, CMP ####[place] [phone] [facility] Vancomycin [Mass/volume] in Serum or Plasma --peakOrdered By: Mario Jordan on 09-51-3946Qafsavljzz peak [Mass/Vol]Vancomycin [Mass/volume] in Serum or Plasma --peak20.0-40.0[facility] Brentwood HospitalVancomycin peak [Mass/Vol]27.3 ug/mL20.0-40.0[facility] Brentwood HospitalComment on above:Last dose: - Vancomycin,Peakon 70-37-7503Pfayhzehrd,Peak27.3 ug/bAKqrhui32.0-40.0The Firsthealth Physician GroupComment on above:Order Comment: Comment ?DRAW 1 HOUR AFTER INFUSION COMPLETES Date of last dose?: 20240712 Time of last dose?: 1800 Result Comment: Last dose: -PERFORMED BY:[address] [place], [place] [phone] MEDICAL DIRECTORJAJA CATES M.D.Performed By: #### VANCP ####[address] [address] [place] [address] USAAcanthocytes [Presence] in Blood by Light microscopyOrdered By: Mario Jordan on 07-12-6161Tcmobdruanbu LM Ql (Bld) Acanthocytes [Presence] in Blood by Light microscopySuburban Community Hospital & Brentwood HospitalAcanthocytes LM Ql (Bld)SlightSuburban Community Hospital & [facility] Hospital Anisocytosis LM Ql (Bld)Ordered By: Mario Jordan on 08-24-7742Cwftvlebzqug Ql (Bld)Anisocytosis [Presence] in Blood by Light microscopySuburban Community Hospital & Brentwood HospitalAnisocytosis [Presence] in Blood by Light microscopyOrdered By: Mario Jordan on 69-78-4294Aiczwgkkxiug Ql (Bld)SlightNormalSuburban Community Hospital & Brentwood HospitalComment on above:Performed By: #### PHOS, CMP, SCAN CBC, MG ####[place] [address] [place] [phone] USACT abdomen pelvis wo conon 98-59-2490HV abdomen pelvis wo conNormalThe [facility] Physician Laird HospitalComprehensive Metabolic Panelon 14-61-6913Hkwhcgr [Mass/Vol]2.6 g/dLLow3.5-5.7The Firsthealth Physician GroupComment on above:Performed By: #### PHOS, CMP, SCAN CBC, MG ####[address] [place] [address] USAAlbumin/Globulin [Mass ratio]1.1 {ratio}NormalThe Firsthealth Physician GroupComment on above:Performed By: #### PHOS, CMP, SCAN CBC, MG ####[address] [place] [address] USAALP [Catalytic activity/Vol]69 U/UYdczwe61-872Dqh [facility] Comment on above:Performed By: #### PHOS, CMP, SCAN CBC, MG ####[address] [address] [place] [address] USAALT [Catalytic activity/Vol]5 U/LLow7-52The Firsthealth Physician GroupComment on above:Performed By: #### PHOS, CMP, SCAN CBC, MG ####[place] [address] USAAnion gap [Moles/Vol]11.7 mmol/LNormal6.0-15.0The Firsthealth Physician GroupComment on above:Performed By: #### PHOS, CMP, SCAN CBC, MG ####[place] [address] USAAST [Catalytic activity/Vol]11 U/YGqi45-90Xmb [facility] Comment on above:Performed By: #### PHOS, CMP, SCAN CBC, MG ####[place] [address] USABilirubin [Mass/Vol] 0.5 mg/dLNormal0.3-1.0The Firsthealth Physician GroupComment on above:Performed By: #### PHOS, CMP, SCAN CBC, MG ####[place] [address] USACalcium [Mass/Vol]8.1 mg/dLLow8.6-10.3The Firsthealth Physician GroupComment on above:Performed By: #### PHOS, CMP, SCAN CBC, MG ####[place] [address] [place] Chloride [Moles/Vol]101 mmol/WTblzrq72-144Gee Firsthealth Physician GroupComment on above:Performed By: #### PHOS, CMP, SCAN CBC, MG ####[place] [address] USACO2 [Moles/Vol]24.2 mmol/L Cbdhna24.0-31.0The Firsthealth Physician GroupComment on above:Performed By: #### PHOS, CMP, SCAN CBC, MG ####[place] [address] USACreatinine [Mass/Vol]1.75 mg/dLHigh0.70-1.30The Firsthealth Physician GroupComment on above:Performed By: #### PHOS, CMP, SCAN CBC, MG ####[place] [address] USACreatinine Clr Calc Vamjglkl19.84NoAsheville Specialty Hospital Physician Laird HospitalComment on above:Performed By: #### PHOS, CMP, SCAN CBC, MG ####[address] [place] [address] USAEstimated GFR38.393 mL/Min NormalThe Firsthealth Physician Laird HospitalComment on above:Performed By: #### PHOS, CMP, SCAN CBC, MG ####[place] [address] USAGlobulin (S) [Mass/Vol]2.3 g/dLNoAsheville Specialty Hospital Physician [facility] Comment on above:Performed By: #### PHOS, CMP, SCAN CBC, MG ####[place] [address] USAGlucose [Mass/Vol]66 mg/rEEcj36-073Jcx First[facility] Physician GroupComment on above:Result Comment: Random Glucose Reference Range is dependent on time and content of last meal. Glucose of more than 200 mg/dL in a nonstressed, ambulatory subject supports the diagnosis of Diabetes Mellitus. ADA recommended reference rangePerformed By: #### PHOS, CMP, SCAN CBC, MG ####[place] [address] USAPotassium [Moles/Vol]3.9 mmol/LNormal3.5-5.1The [facility] Physician Laird HospitalComment on above:Performed By: #### PHOS, CMP, SCAN CBC, MG ####[place] [address] USAProtein [Mass/Vol]4.9 g/dLSignificant change down6.4-8.9The [facility] Physician Laird HospitalComment on above:Performed By: #### PHOS, CMP, SCAN CBC, MG ####[place] [address] USASodium [Moles/Vol]133 mmol/FJvx136-941Ihf [facility] Physician Laird HospitalComment on above: Performed By: #### PHOS, CMP, SCAN CBC, MG ####[address] [place] [address] USAUrea nitrogen [Mass/Vol]34 mg/dLBraxton County Memorial Hospital 7 Firsthealth Physician GroupComment on above:Performed By: #### PHOS, CMP, SCAN CBC, MG ####[place] [address] [place] [address] USADacrocytes [Presence] in Blood by Light microscopyOrdered By: Mario Jordan on 88-88-8506Zepmaiqeri LM Ql (Bld)Teardrop cell detectionSuburban Community Hospital & Brentwood HospitalDacrocytes LM Ql (Bld)SlightSuburban Community Hospital & Brentwood HospitalErythrocyte morphology finding [Identifier] in BloodOrdered By: Mairo Jordan on 57-71-1732GRF morphology finding Nom (Bld)RBC morphologySuburban Community Hospital & Brentwood HospitalRBC morphology finding Nom (Bld)N/[facility] HospitalHypochromia LM Ql (Bld)Ordered By: Mario Jordan on 07-13-2024 Hypochromia Ql (Bld)Hypochromia [Presence] in Blood by Light microscopySuburban Community Hospital & Brentwood HospitalHypochromia Ql (Bld)[facility]rbana HospitalMRSA - MSSA Nasal PCRon 42-23-4906ERGY - MSSA Nasal PCRNoAsheville Specialty Hospital Physician GroupComment on above:Performed By: #### MRSA - MSSA PCR ####[address] [address] [facility] Magnesium [Mass/volume] in Serum or PlasmaOrdered By: Mario Jordan on 07-13-2024 Magnesium [Mass/Vol]Magnesium [Mass/volume] in Serum or PlasmaLow1.9-2.7 [facility] Brentwood HospitalMagnesium [Mass/Vol]1.8 mg/dLLow1.9-2.7 [facility] Brentwood HospitalComment on above:Result Comment: PERFORMED BY:[address] [place], [place] [phone] MEDICAL DIRECTORJAJA CATES M.D.Performed By: #### PHOS, CMP, SCAN CBC, MG ####[address] [address] USAMicrocytes LM Ql (Bld)Ordered By: Mario Jordan on 06-55-7290Wijqlegjgs Ql (Bld)Microcytes [Presence] in Blood by Light microscopy [facility] Brent[facility] HospitalMicrocytes Ql (Bld)[facility]ana HospitalNo Panel InformationOrdered By: Mario Jordan on 46-61-1883Ojapq Screen MRSA/MSSBerger HospitalOvalocytes [Presence] in Blood by Light microscopyOrdered By: Mario Jordan on 44-36-8575Zywgukpoic LM Ql (Bld) Ovalocyte detectionSuburban Community Hospital & Brentwood HospitalOvalocytes LM Ql (Bld)[facility] HospitalPhosphate [Mass/volume] in Serum or Plasma Ordered By: Mario Jordan on 31-05-4738Gnlsubzxy [Mass/Vol]Phosphate [Mass/volume] in Serum or Plasma2.5-4.5FMercy Health – The Jewish HospitalPhosphate [Mass/Vol] 3.0 mg/dLNormal2.5-4.5FMercy Health – The Jewish HospitalComment on above: Performed By: #### PHOS, CMP, SCAN CBC, MG ####[facility] [address] [place] [address] USAPlatelet adequacy [Presence] in Blood by Light microscopyOrdered By: Mario Jordan on 90-36-7097Bvjeqerdc LM Ql (Bld) Platelet adequacy [Presence] in Blood by Light microscopyNoCincinnati Children's Hospital Medical CenterPlatelets LM Ql (Bld)NormalNoCincinnati Children's Hospital Medical CenterPlatelet morphology finding [Identifier] in BloodOrdered By: Mario Jordan on 43-57-9829Vegcvbqq morphology finding Nom (Bld)Platelet morphology finding [Identifier] in BloodSuburban Community Hospital & Brentwood HospitalPlatelet morphology finding Nom (Bld)N/AFMercy Health – The Jewish HospitalPlatelets Large [Presence] in Blood by Light microscopyOrdered By: Mario Jordan on 07-13-2024 Platelets Large LM Ql (Bld)Platelets Large [Presence] in Blood by Light microscopySuburban Community Hospital & Brentwood HospitalPlatelets Large LM Ql (Bld)Slight [facility] HospitalPoikilocytosis [Presence] in Blood by Light microscopyOrdered By: Mario Jordan on 01-68-4006Yomuvqanmyuwnc LM Ql (Bld) Poikilocytosis [Presence] in Blood by Light microscopySuburban Community Hospital & Brentwood HospitalPoikilocytosis LM Ql (Bld)ModerateSuburban Community Hospital & Brentwood Hospital Polychromasia [Presence] in Blood by Light microscopyOrdered By: Mario Jordan on 53-86-5085Ytyzzmanimqns LM Ql (Bld)Polychromasia [Presence] in Blood by Light microscopySuburban Community Hospital & Brentwood HospitalPolychromasia LM Ql (Bld)Slight [facility]. Francis Hospitalcan and CBCon 58-72-0293GsmjkqmlumqoGgicxu NormalThe Firsthealth Physician GroupComment on above:Performed By: #### PHOS, CMP, SCAN CBC, MG ####[place] [address] USABasophils (Bld) [#/Vol]0.1 10*3/uLNormal0.0-0.2The Firsthealth Physician GroupComment on above:Performed By: #### PHOS, CMP, SCAN CBC, MG ####[place] [address] [place] Basophils/100 WBC (Bld)0.2 %Normal.The Firsthealth Physician GroupComment on above:Performed By: #### PHOS, CMP, SCAN CBC, MG ####[address] [address] USAEosinophils (Bld) [#/Vol]0.0 10*3/uL Normal0.0-0.45The Firsthealth Physician GroupComment on above:Performed By: #### PHOS, CMP, SCAN CBC, MG ####[place] [address] USAEosinophils/100 WBC (Bld)0.1 %Normal.The Firsthealth Physician GroupComment on above:Performed By: #### PHOS, CMP, SCAN CBC, MG ####[place] [address] [place] Erythrocyte distribution width (RBC) [Ratio]18.4 %High12.0-14.8The Firsthealth Physician GroupComment on above:Performed By: #### PHOS, CMP, SCAN CBC, MG ####[address] [address] [place] Hematocrit (Bld) [Volume fraction]25.1 %Low38.8-50.0The Firsthealth Physician GroupComment on above:Performed By: #### PHOS, CMP, SCAN CBC, MG ####[address] [address] USAHemoglobin (Bld) [Mass/Vol]8.0 g/dLLow13.0-17.0The First[facility] Physician GroupComment on above: Performed By: #### PHOS, CMP, SCAN CBC, MG ####[address] [address] USAHypochromasiaSFirstHealth [facility] Physician GroupComment on above:Performed By: #### PHOS, CMP, SCAN CBC, MG ####[address] [address] USALarge PlateletsSFirstHealth Moore Regional Hospital - Richmond Physician GroupComment on above:Result Comment: PERFORMED BY:[address]ETToshaCLE[place]REEK, [place] [phone] MEDICAL DIRECTORJAJA CATES M.D. Performed By: #### PHOS, CMP, SCAN CBC, MG ####[address] [address] USALymphocytes (Bld) [#/Vol]0.7 10*3/uL Low1.00-4.8The Firsthealth Physician GroupComment on above:Performed By: #### PHOS, CMP, SCAN CBC, MG ####[address] [address] USALymphocytes/100 WBC (Bld)2.7 %Normal.The Firsthealth Physician GroupComment on above:Performed By: #### PHOS, CMP, SCAN CBC, MG ####[address] [address] USAMCH (RBC) [Entitic mass]29.1 vfPuknhx45.5-35.2The Firsthealth Physician GroupComment on above:Performed By: #### PHOS, CMP, SCAN CBC, MG ####[place] [address] USAMCV (RBC) [Entitic vol]90.9 fL Mysfdq23.5-101The Firsthealth Physician GroupComment on above:Performed By: #### PHOS, CMP, SCAN CBC, MG ####[place] [address] USAMean Corpuscular HGB Conc32.0 g/dLLow32.5-35.6The First[facility] Physician GroupComment on above:Performed By: #### PHOS, CMP, SCAN CBC, MG ####[place] [address] USAMicrocytosisSlightNormalThe Firsthealth Physician GroupComment on above: Performed By: #### PHOS, CMP, SCAN CBC, MG ####[place] [address] USAMonocytes (Bld) [#/Vol]1.8 10*3/uLHigh 0.0-0.8The Firsthealth Physician GroupComment on above:Performed By: #### PHOS, CMP, SCAN CBC, MG ####[place] [address] USAMonocytes/100 WBC (Bld)6.8 %Normal.The [facility] Comment on above:Performed By: #### PHOS, CMP, SCAN CBC, MG ####[place] [address] USANeutrophils (Bld) [#/Vol]24.1 10*3/uLHigh1.8-7.7The Firsthealth Physician GroupComment on above: Performed By: #### PHOS, CMP, SCAN CBC, MG ####[place] [address] USANeutrophils/100 WBC (Bld)90.2 %Normal. The Firsthealth Physician GroupComment on above:Performed By: #### PHOS, CMP, SCAN CBC, MG ####[address] [place] [address] USANRBC%0.1 /100{WBC}Normal0-0.5The Firsthealth Physician GroupComment on above: Performed By: #### PHOS, CMP, SCAN CBC, MG ####[address] [address] USAOvalocytesSlightCampbellton-Graceville Hospital Physician GroupComment on above:Performed By: #### PHOS, CMP, SCAN CBC, MG ####[address] [address] [place] Platelet EstimateNormalNormalCampbellton-Graceville Hospital Physician GroupComment on above:Performed By: #### PHOS, CMP, SCAN CBC, MG ####[address] [address] USAPlatelet mean volume (Bld) [Entitic vol]7.7 fLNormal6.6-10.1The [facility] Physician GroupComment on above:Performed By: #### PHOS, CMP, SCAN CBC, MG ####[address] [address] USAPlatelets (Bld) [#/Vol]179 10*3/nGSowuxx576-267Ljp [facility] Physician GroupComment on above:Performed By: #### PHOS, CMP, SCAN CBC, MG ####[address] [address] USAPoikilocytosisModerateNormAdventHealth Wauchula Physician GroupComment on above: Performed By: #### PHOS, CMP, SCAN CBC, MG ####[address] [address] USAPolychromasiaSlightCampbellton-Graceville Hospital Physician GroupComment on above:Performed By: #### PHOS, CMP, SCAN CBC, MG ####[address] [address] USARBC (Bld) [#/Vol]2.77 10*6/uLLow3.90-5.60The [facility] Physician GroupComment on above:Performed By: #### PHOS, CMP, SCAN CBC, MG ####[address] [place] [address] USASchistocytesFrye Regional Medical Center Physician GroupComment on above:Performed By: #### PHOS, CMP, SCAN CBC, MG ####[address] [address] USATear Drop CellsSlightCampbellton-Graceville Hospital Physician GroupComment on above:Performed By: #### PHOS, CMP, SCAN CBC, MG ####[address] [address] USAWBC (Bld) [#/Vol]26.7 10*3/uLHigh4.1-10.5The [facility] Physician GroupComment on above:Performed By: #### PHOS, CMP, SCAN CBC, MG ####[address] [address] USASchistocytes [Presence] in Blood by Light microscopyOrdered By: Mario Jordan on 43-33-7934Clugrxbkibkk LM Ql (Bld)Schistocytes [Presence] in Blood by Light microscopySt. Francis Hospitalchistocytes LM Ql (Bld)Slight St. Francis Hospitaltool Occult Blood (Guaiac)on 86-30-1462Zbtdx Occult Blood (Guaiac)NormalThe Firsthealth Physician GroupComment on above: Performed By: #### OB(GUAIAC) ####[address] [address]DUPXffab gastrointestinal hemoglobin detectionOrdered By: Melvi Qureshi on 34-08-7356Rsmpjlsjtq.gastrointestinal Ql (Stl)Stool gastrointestinal hemoglobin detectionSuburban Community Hospital & Brentwood Hospital Hemoglobin.gastrointestinal Ql (Stl)[facility] & Brentwood HospitalAlanine aminotransferase [Enzymatic activity/volume] in Serum or PlasmaOrdered By: Melvi Qureshi on 19-29-4606UFF [Catalytic activity/Vol]Alanine aminotransferase [Enzymatic activity/volume] in Serum or PlasmaLow7-52[facility] & Brentwood HospitalAlbumin [Mass/volume] in Serum or Plasma by Bromocresol green (BCG) dye binding methoOrdered By: Melvi Qureshi on 20-29-8398Cgvxzvt BCG dye [Mass/Vol] Albumin [Mass/volume] in Serum or Plasma by Bromocresol green (BCG) dye binding methoLow3.5-5.7FMercy Health – The Jewish HospitalAlkaline phosphatase [Enzymatic activity/volume] in Serum or PlasmaOrdered By: Melvi Qureshi on 47-19-6085OTB [Catalytic activity/Vol]Alkaline phosphatase [Enzymatic activity/volume] in Serum or Hqmffr91-018AjnllzzreSuburban Community Hospital & Brentwood HospitalAmbulatory Visit Summaryon 95-64-2615Qgebmrqcxv Visit SummaryAmbulatory Visit Summary TAVO WALLIS :1940 [...] Ambar Summers PA-C Where: [facility] [address] [place] [address]- You Need to Schedule the Following Appointments [...] Arthritis BPH with obstruction/lowe (more content not included)...Marion HospitalAspartate aminotransferase [Enzymatic activity/volume] in Serum or PlasmaOrdered By: Melvi Qureshi on 57-17-3492TNW [Catalytic activity/Vol]Aspartate aminotransferase [Enzymatic activity/volume] in Serum or Nojbun92-40UikauurkuSuburban Community Hospital & Brentwood HospitalBNP ser/plasOrdered By: Melvi Qureshi on 07-12-2024 Natriuretic peptide B (Bld) [Mass/Vol]164.0 pg/mLHigh5-100[facility] & Brentwood HospitalComment on above:Result Comment: PERFORMED BY:[facility] [place], [place] [phone] MEDICAL DIRECTORJAJA CATES M.D.Performed By: #### BNP ####[facility] [place] [address] USABacteria [Presence] in Urine sediment by Light microscopyOrdered By: Melvi Qureshi on 29-38-9858Huykjrng LM Ql (Urine sed)Bacteria [Presence] in Urine sediment by Light microscopyAshtabula County Medical CenterBacteria LM Ql (Urine sed)1+ [HPF][facility]ula County Medical CenterBand form neutrophils/100 WBC Manual cnt (Bld)Ordered By: Mario Jordan on 24-62-5771Spal form neutrophils/100 WBC (Bld) Peripheral white blood cell differential % bands, microscopic exam0-[facility] HospitalBand form neutrophils/100 leukocytes in Blood by Manual countOrdered By: Mario Jordan on 44-57-4377Jzeh form neutrophils/100 WBC (Bld)3 % Normal0-[facility] Jewish HospitalComment on above:Order Comment: 4P/33 Performed By: #### DIFF CBC ####[facility] [address] [place] [id number] USABasophils Auto (Bld) [#/Vol]Ordered By: Melvi Qureshi on 08-95-3747Gmqkjbdvj (Bld) [#/Vol]Automated basophil count0.0-0.2FMercy Health – The Jewish HospitalBasophils/100 WBC Auto (Bld)Ordered By: Melvi Qureshi on 47-42-2722Vvogxubwb/100 WBC (Bld)Automated basophil %.[facility] & Brentwood HospitalBilirubin Test strip Ql (U)Ordered By: Melvi Qureshi on 21-57-7563Lmqjjlpng Ql (U)Bilirubin.total [Presence] in Urine by Test stripNegativeSuburban Community Hospital & Brentwood HospitalBilirubin Ql (U)See commentNegativeSuburban Community Hospital & Brentwood HospitalComment on above:Unable to obtain accurate result due to color interference.Bilirubin.total [Mass/volume] in Serum or PlasmaOrdered By: Melvi Qureshi on 76-40-5067Avvkqvwur [Mass/Vol]Bilirubin.total [Mass/volume] in Serum or Plasma0.3-1.0[facility] & Brentwood HospitalBlood Cultureon 12-30-9904Upvpyswz identified Cx Nom (Bld)NormalThe Firsthealth Physician GroupComment on above: Performed By: #### HS TROP, CBC, CUBLD, MG, LACTIC, CMP ####[facility] [id number] [place] [address] USACOVID Cepheid NegativeOrdered By: Melvi Qureshi on 48-81-1559PDDT-CoV-2 (COVID-19) Ab IA QlNegativeNegProMedica Flower HospitalComment on above:This is a duplicate Cepheid Xpert Xpress CoV-2/Flu/RSV Plus RNA by RT-PCR result to be used for statistical tracking purpose only.SARS-CoV-2 (COVID-19) RNA SMITHA+probe Ql (Unsp spec)COVID CepheidNegativeSt. Francis HospitalARS-CoV-2 (COVID-19) RNA SMITHA+probe Ql (Unsp spec)NegativeNormalNegativeSuburban Community Hospital & [facility] Comment on above:Result Comment: This is a duplicate Cepheid Xpert Xpress CoV- 2/Flu/RSV Plus RNA by RT-PCR result zaira used for statistical tracking purpose only.PERFORMED BY:[place] [address] [place], [place] [phone] MEDICAL DIRECTORJAJA CATES M.D. Performed By: #### COVID19 FLU RSV, CEPHEID NEG ####[place] [address] [place] [address] USACalcium [Mass/volume] in Serum or PlasmaOrdered By: Melvi Qureshi on 22-00-6096Mtsoner [Mass/Vol]Calcium [Mass/volume] in Serum or Plasma8.6-10.3FMercy Health – The Jewish HospitalCarbon dioxide, total [Moles/volume] in Serum or PlasmaOrdered By: Melvi Qureshi on 81-83-9673WP0 [Moles/Vol]Carbon dioxide, total [Moles/volume] in Serum or Plasma 21.0-31.0[facility] & Brentwood HospitalChloride [Moles/volume] in Serum or PlasmaOrdered By: Melvi Qureshi on 83-92-1959Vlacjwko [Moles/Vol]Chloride [Moles/volume] in Serum or Zctipr68-544NgufgidkiSuburban Community Hospital & Brentwood HospitalComplete Blood Count Auto Diffon 28-32-7513Wxrbnxgql (Bld) [#/Vol]0.0 10*3/uLNormal 0.0-0.2The Firsthealth Physician GroupComment on above:Result Comment: PERFORMED BY:[place] [address] [place], [place] [phone] MEDICAL DIRECTORJAJA CATES M.D.Performed By: #### HS TROP, CBC, CUBLD, MG, LACTIC, CMP ####[place] [address] USABasophils/100 WBC (Bld)0.3 %Normal.The Firsthealth Physician GroupComment on above:Performed By: #### HS TROP, CBC, CUBLD, MG, LACTIC, CMP ####[place] [address] USAEosinophils (Bld) [#/Vol]0.1 10*3/uLNormal0.0-0.45The Firsthealth Physician GroupComment on above:Performed By: #### HS TROP, CBC, CUBLD, MG, LACTIC, CMP ####[place] [address] USAEosinophils/100 WBC (Bld)1.3 %Normal.The [facility] Comment on above:Performed By: #### HS TROP, CBC, CUBLD, MG, LACTIC, CMP ####[place] [address] [place] Erythrocyte distribution width (RBC) [Ratio]17.9 %High12.0-14.8The Firsthealth Physician GroupComment on above:Performed By: #### HS TROP, CBC, CUBLD, MG, LACTIC, CMP ####[place] [address] USAHematocrit (Bld) [Volume fraction]29.8 %Low38.8-50.0The [facility] Physician GroupComment on above:Performed By: #### HS TROP, CBC, CUBLD, MG, LACTIC, CMP ####[place] [address] USAHemoglobin (Bld) [Mass/Vol]9.9 g/dLLow13.0-17.0The [facility] Physician GroupComment on above:Performed By: #### HS TROP, CBC, CUBLD, MG, LACTIC, CMP ####[place] [address] [place] Lymphocytes (Bld) [#/Vol]0.3 10*3/uLLow1.00-4.8The [facility] Comment on above:Performed By: #### HS TROP, CBC, CUBLD, MG, LACTIC, CMP ####[address] Lymphocytes/100 WBC (Bld)4.2 %Normal.The Firsthealth Physician GroupComment on above:Performed By: #### HS TROP, CBC, CUBLD, MG, LACTIC, CMP ####[address] (RBC) [Entitic mass]30.1 sdWpwyuy13.5-35.2The Firsthealth Physician GroupComment on above: Performed By: #### HS TROP, CBC, CUBLD, MG, LACTIC, CMP ####[address] (RBC) [Entitic vol]90.8 fL Geqofd73.5-101The Firsthealth Physician GroupComment on above:Performed By: #### HS TROP, CBC, CUBLD, MG, LACTIC, CMP ####[place] [address] USAMean Corpuscular HGB Conc33.2 g/dLNormal 32.5-35.6The First[facility] Physician GroupComment on above:Performed By: #### HS TROP, CBC, CUBLD, MG, LACTIC, CMP ####[place] [address] USAMonocyte Distribution WidthNot performedNormal 0.00-20.00The Firsthealth Physician GroupComment on above:Result Comment: Unable to calculate MDW because the Absolute Monocyte Count is <0.8.Performed By: #### HS TROP, CBC, CUBLD, MG, LACTIC, CMP ####[place] [address] USAMonocytes (Bld) [#/Vol]0.0 10*3/uLNormal 0.0-0.8The [facility] Physician GroupComment on above:Performed By: #### HS TROP, CBC, CUBLD, MG, LACTIC, CMP ####[address] [address] USAMonocytes/100 WBC (Bld)0.4 %Normal.The Firsthealth Physician GroupComment on above:Performed By: #### HS TROP, CBC, CUBLD, MG, LACTIC, CMP ####[place] [address] USANeutrophils (Bld) [#/Vol]6.3 10*3/uLNormal1.8-7.7The First[facility] Physician GroupComment on above:Performed By: #### HS TROP, CBC, CUBLD, MG, LACTIC, CMP ####[place] [address] USANeutrophils/100 WBC (Bld)93.8 %Normal.The [facility] Comment on above:Performed By: #### HS TROP, CBC, CUBLD, MG, LACTIC, CMP ####[place] [id number] USANRBC% 0.2 /100{WBC}Normal0-0.5The Firsthealth Physician GroupComment on above:Performed By: #### HS TROP, CBC, CUBLD, MG, LACTIC, CMP ####[place] [id number] USAPlatelet mean volume (Bld) [Entitic vol]7.2 fLNormal6.6-10.1The [facility] Physician GroupComment on above:Performed By: #### HS TROP, CBC, CUBLD, MG, LACTIC, CMP ####[place] [address] USAPlatelets (Bld) [#/Vol]288 10*3/uL Ozphuc076-583Hwu [facility] Physician GroupComment on above:Performed By: #### HS TROP, CBC, CUBLD, MG, LACTIC, CMP ####[place] [address] USARBC (Bld) [#/Vol]3.28 10*6/uLLow3.90-5.60The [facility] Physician GroupComment on above:Performed By: #### HS TROP, CBC, CUBLD, MG, LACTIC, CMP ####[place] [address] USAWBC (Bld) [#/Vol]6.5 10*3/uLNormal4.1-10.5The [facility] Physician GroupComment on above:Performed By: #### HS TROP, CBC, CUBLD, MG, LACTIC, CMP ####[place] [id number] USAComprehensive Metabolic Panelon 72-85-5814Dvdufqm [Mass/Vol]3.4 g/dLLow3.5-5.7The [facility] Physician GroupComment on above: Performed By: #### HS TROP, CBC, CUBLD, MG, LACTIC, CMP ####[place] [address] USAAlbumin/Globulin [Mass ratio] 1.0 {ratio}NormalThe Firsthealth Physician GroupComment on above:Performed By: #### HS TROP, CBC, CUBLD, MG, LACTIC, CMP ####[place] [address] USAALP [Catalytic activity/Vol]100 U/LNormal 34-104The [facility] Physician GroupComment on above:Performed By: #### HS TROP, CBC, CUBLD, MG, LACTIC, CMP ####[place] [address] USAALT [Catalytic activity/Vol]6 U/LLow7-52The [facility] Physician GroupComment on above:Performed By: #### HS TROP, CBC, CUBLD, MG, LACTIC, CMP ####[place] [address] USAAnion gap [Moles/Vol]9.7 mmol/LNormal6.0-15.0The [facility] Physician GroupComment on above:Performed By: #### HS TROP, CBC, CUBLD, MG, LACTIC, CMP ####[place] [address] USAAST [Catalytic activity/Vol]13 U/DQxkwkp91-22Ttn [facility] Physician GroupComment on above:Performed By: #### HS TROP, CBC, CUBLD, MG, LACTIC, CMP ####[place] [address] USABilirubin [Mass/Vol]0.6 mg/dLNormal0.3-1.0The [facility] Physician GroupComment on above:Performed By: #### HS TROP, CBC, CUBLD, MG, LACTIC, CMP ####[place] [address] USACalcium [Mass/Vol]9.0 mg/dLNormal8.6-10.3The [facility] Physician GroupComment on above:Performed By: #### HS TROP, CBC, CUBLD, MG, LACTIC, CMP ####[place] [address] USAChloride [Moles/Vol]102 mmol/HUbfndz91-121Prr [facility] Physician GroupComment on above:Performed By: #### HS TROP, CBC, CUBLD, MG, LACTIC, CMP ####[place] [address] USACO2 [Moles/Vol]27.2 mmol/YSgixyf19.0-31.0The [facility] Physician GroupComment on above:Performed By: #### HS TROP, CBC, CUBLD, MG, LACTIC, CMP ####[place] [address] USACreatinine [Mass/Vol]1.62 mg/dLHigh0.70-1.30The [facility] Physician GroupComment on above:Performed By: #### HS TROP, CBC, CUBLD, MG, LACTIC, CMP ####[place] [address] USACreatinine Clr Calc Dxiurdeg66.97NormAdventHealth Wauchula Physician GroupComment on above:Performed By: #### HS TROP, CBC, CUBLD, MG, LACTIC, CMP ####[place] [address] USAEstimated GFR42.119 mL/MinNoAsheville Specialty Hospital Physician GroupComment on above:Performed By: #### HS TROP, CBC, CUBLD, MG, LACTIC, CMP ####[place] [address] USAGlobulin (S) [Mass/Vol]3.3 g/dLNormalThe [facility]health Physician GroupComment on above:Performed By: #### HS TROP, CBC, CUBLD, MG, LACTIC, CMP ####[place] [address] USAGlucose [Mass/Vol]69 mg/dYIvj20-403Xkw [facility] Physician GroupComment on above:Result Comment: Random Glucose Reference Range is dependent on time and content of last meal. Glucose of more than 200 mg/dL in a nonstressed, ambulatory subject supports the diagnosis of Diabetes Mellitus. ADA recommended reference rangePerformed By: #### HS TROP, CBC, CUBLD, MG, LACTIC, CMP ####[place] [address] USAPotassium [Moles/Vol]3.9 mmol/LNormal3.5-5.1The [facility] Physician GroupComment on above:Performed By: #### HS TROP, CBC, CUBLD, MG, LACTIC, CMP ####[place] [address] USAProtein [Mass/Vol]6.7 g/dLNormal6.4-8.9The [facility] Physician GroupComment on above:Performed By: #### HS TROP, CBC, CUBLD, MG, LACTIC, CMP ####[place] [address] USASodium [Moles/Vol]135 mmol/BGyh173-989Dto [facility] Comment on above:Performed By: #### HS TROP, CBC, CUBLD, MG, LACTIC, CMP ####[place] [address] USAUrea nitrogen [Mass/Vol]33 mg/dLHigh7-25The [facility] Physician GroupComment on above:Performed By: #### HS TROP, CBC, CUBLD, MG, LACTIC, CMP ####[address] [address] USACreatinine [Mass/volume] in Serum or PlasmaOrdered By: Melvi Qureshi on 34-04-6315Chxhytpstl [Mass/Vol]Creatinine [Mass/volume] in Serum or PlasmaHigh0.70-1.30[facility] HospitalDiff and CBCon 59-99-0257Aleuvmialxcs Ql (Bld)Slight NormalThe Firsthealth Physician GroupComment on above:Order Comment: Performed By: #### DIFF CBC ####[place] [phone] USAErythrocyte distribution width (RBC) [Ratio]18.2 % High12.0-14.8The [facility] Physician GroupComment on above:Order Comment: Performed By: #### DIFF CBC ####[place] [address] USAHematocrit (Bld) [Volume fraction]28.2 %Low38.8-50.0 The Firsthealth Physician GroupComment on above:Order Comment: Performed By: #### DIFF CBC ####[address] [address] USAHemoglobin (Bld) [Mass/Vol]9.0 g/dLLow13.0-17.0The [facility] Physician GroupComment on above:Order Comment: Performed By: #### DIFF CBC ####[address] [address] USAMCH (RBC) [Entitic mass]29.4 znTfipbp23.5-35.2The [facility] Physician GroupComment on above:Order Comment: Performed By: #### DIFF CBC ####[place] [address] USAMCV (RBC) [Entitic vol]91.9 fL Xmxuba95.5-101The [facility] Physician GroupComment on above:Order Comment: Performed By: #### DIFF CBC ####[place] [address] USAMean Corpuscular HGB Conc32.0 g/dLLow32.5-35.6The [facility] Physician GroupComment on above:Order Comment: Performed By: #### DIFF CBC ####[address] [address] USAMicrocytosisSlightNoAsheville Specialty Hospital Physician GroupComment on above:Order Comment: Performed By: #### DIFF CBC ####[place] [phone] USAMonocytes/100 WBC (Bld)29.58 %High0.00-20.00 [facility] Physician GroupComment on above:Order Comment: Result Comment: For adults in ED, MDW > 20.0 may be associated with a higher risk of sepsis during the first 12 hrs of hospital admission The predictive value of MDW for identifying sepsis in patients with hematological abnormalities has not been establishedPerformed By: #### DIFF CBC ####[address] [address] USAOvalocytesSlightNoAsheville Specialty Hospital Physician GroupComment on above:Order Comment: Performed By: #### DIFF CBC ####[address] [address] [place] Platelet EstimateNormalNormalNormAdventHealth Wauchula Physician GroupComment on above:Order Comment: Performed By: #### DIFF CBC ####[address] [address] USAPlatelet mean volume (Bld) [Entitic vol]7.3 fLNormal6.6-10.1The [facility] Physician GroupComment on above: Order Comment: Performed By: #### DIFF CBC ####[address] [address] USAPlatelet MorphologyNormalNormalNormal The Firsthealth Physician GroupComment on above:Order Comment: Result Comment: PERFORMED BY:[address] [place], [place] [phone] MEDICAL DIRECTORJAJA CATES M.D. Performed By: #### DIFF CBC ####[address] [address] USAPlatelets (Bld) [#/Vol]217 10*3/rYRjsajt042-371Lbw [facility] Physician GroupComment on above:Order Comment: 4PPerformed By: #### DIFF CBC ####[address] [address] USAPoikilocytosisSlightNoAsheville Specialty Hospital Physician GroupComment on above:Order Comment: 4PPerformed By: #### DIFF CBC ####[address] [address] USARBC (Bld) [#/Vol]3.07 10*6/uLLow 3.90-5.60The [facility] Physician GroupComment on above:Order Comment: 4 Performed By: #### DIFF CBC ####[address] [address] USAStomatocytesSlightNoAsheville Specialty Hospital Physician GroupComment on above:Order Comment: 4Performed By: #### DIFF CBC ####[address] [address] USAWBC (Bld) [#/Vol]21.3 10*3/uLHigh4.1-10.5The [facility] Physician GroupComment on above:Order Comment: Performed By: #### DIFF CBC ####[address] [address] USADipstick and Microscopicon 24-29-8882Qzjangau,Urine1+HighNone SeenThe Firsthealth Physician GroupComment on above:Order Comment: Name Collection Type:: Chou CatheterResult Comment: PERFORMED BY:[place] [address] [address] QUANToshaDaneAMEENASEATTLE, [place] [phone] MEDICAL DIRECTORJAJA CATES M.D. Performed By: #### ADDONUAPLUS ####[place] [address] [place] [address] USABilirubin,UrineNormalNegativeB[facility]ow [facility] Physician GroupComment on above:Order Comment: Name Collection Type:: Chou Catheter Result Comment: Unable to obtain accurate result due to color interference. Performed By: #### ADDONUAPLUS ####[address] [place] [address] USAGlucose Ql (U)NormalNormalThe Firsthealth Physician GroupComment on above:Order Comment: Name Collection Type:: Chou CatheterResult Comment: Unable to obtain accurate result due to color interference.Performed By: #### ADDONUAPLUS ####[address] [place] [address] USAKetones Ql (U)NormalNegativeB[facility]ow [facility] Center Physician GroupComment on above:Order Comment: Name Collection Type:: Chou CatheterResult Comment: Unable to obtain accurate result due to color interference.Performed By: #### ADDONUAPLUS ####[address] [place] [address] USALeukocyte esterase Test strip Ql (U)NormalNegative [facility] Physician GroupComment on above:Order Comment: Name Collection Type:: Chou CatheterResult Comment: Unable to obtain accurate result due to color interference.Performed By: #### ADDONUAPLUS ####[address] [place] [address] USANitrite,UrineNormalNegativeBartow [facility] Center Physician GroupComment on above:Order Comment: Name Collection Type:: Chou CatheterResult Comment: Unable to obtain accurate result due to color interference.Performed By: #### ADDONUAPLUS ####[address] [place] [address] USAOccult Blood,UrineNormalNegativeB[facility]ow [facility] Physician GroupComment on above:Order Comment: Name Collection Type:: Chou CatheterResult Comment: Unable to obtain accurate result due to color interference.Performed By: #### ADDONUAPLUS ####[address] [place] [address] USApH,UrineNormal5.0-9.0[facility] Physician GroupComment on above:Order Comment: Name Collection Type:: Chou CatheterResult Comment: Unable to obtain accurate result due to color interference.Performed By: #### ADDONUAPLUS ####[address] [place] [address] USAProtein,UrineNormalNegativeB[facility] Physician GroupComment on above:Order Comment: Name Collection Type:: Chou CatheterResult Comment: Unable to obtain accurate result due to color interference.Performed By: #### ADDONUAPLUS ####[address] [place] [address] USARBC,UrineInnumerableHigh0-4The [facility] Physician GroupComment on above:Order Comment: Name Collection Type:: Chou CatheterPerformed By: #### ADDONUAPLUS ####[address] [address] USASpecificy [place],Urine1.020Normal 1.001-1.030The [facility] Physician GroupComment on above:Order Comment: Name Collection Type:: Chou CatheterPerformed By: #### ADDONUAPLUS ####[address] [address] USASquamous Epithelial Cell,Vphuh4-2Fwvglm2-6Ouj [facility] Physician GroupComment on above:Order Comment: Name Collection Type:: Chou CatheterPerformed By: #### ADDONUAPLUS ####[address] [address] [place] Urobilinogen,UrineNormalNormalThe [facility]health Physician GroupComment on above: Order Comment: Name Collection Type:: Chou CatheterResult Comment: Unable to obtain accurate result due to color interference.Performed By: #### ADDONUAPLUS ####[address] [address] [place] WBC,Qnisy79-91Aayc1-9Gci [facility] Physician GroupComment on above:Order Comment: Name Collection Type:: Chou CatheterPerformed By: #### ADDONUAPLUS ####[address] [address] USAECG 12 lead ECGon 42-38-1345SMM 12 lead ECGNormalThe [facility] Eosinophils Auto (Bld) [#/Vol]Ordered By: Melvi Qureshi on 97-00-8010Bwmhiyzfkfi (Bld) [#/Vol]Automated eosinophil count0.0-0.45[facility] Eosinophils/100 WBC Auto (Bld)Ordered By: Melvi Qureshi on 07-12-2024 Eosinophils/100 WBC (Bld)Automated eosinophil %.[facility] HospitalEosinophils/100 WBC Manual cnt (Bld)Ordered By: Mario Jordan on 07-12-2024 Eosinophils/100 WBC (Bld)Eosinophils/100 leukocytes in Blood by Manual count1- [facility] HospitalEosinophils/100 leukocytes in Blood by Manual countOrdered By: Mario Jordan on 71-99-1907Tpkqcsgryfi/100 WBC (Bld)1 %Normal1-3 [facility] Brentwood HospitalComment on above:Order Comment: 4P/33Performed By: #### DIFF CBC ####[facility] [place] [address] [facility] MEXICOEpithelial cells.squamous [#/area] in Urine sediment by Microscopy high power fieldOrdered By: Melvi Qureshi on 07-45-1951Spgbibqzos cells.squamous LM.HPF (Urine sed) [#/Area]Epithelial cells.squamous [#/area] in Urine sediment by Microscopy high power field0-2FMercy Health – The Jewish HospitalEpithelial cells.squamous LM.HPF (Urine sed) [#/Area]0-1 [HPF]0-2FMercy Health – The Jewish HospitalErythrocyte distribution width Auto (RBC) [Ratio]Ordered By: Melvi Qureshi on 59-77-3458Unkchjcpnby distribution width (RBC) [Ratio]Erythrocyte distribution width [Ratio] by Automated idoygFbxo98.0-14.8[facility] HospitalErythrocytes [#/area] in Urine sediment by Microscopy high power fieldOrdered By: Melvi Qureshi on 43-30-0122NPS LM.HPF (Urine sed) [#/Area] Erythrocytes [#/area] in Urine sediment by Microscopy high power fieldHigh0-4 [facility] HospitalRB LM.HPF (Urine sed) [#/Area]Innumerable [HPF]High0-4FMercy Health – The Jewish HospitalGlobulin Calc (S) [Mass/Vol]Ordered By: Melvi Qureshi on 81-71-0452Emmpcagu (S) [Mass/Vol]Serum globulin measurement by calculation (mass/volume)[facility] HospitalGlucose [Mass/volume] in Serum or PlasmaOrdered By: Melvi Qureshi on 74-48-7354Jvpwrwi [Mass/Vol]Glucose [Mass/volume] in Serum or XrmomwZnv29-459VcjcyvaadSuburban Community Hospital & Brentwood HospitalGlucose [Mass/volume] in Urine by Test stripOrdered By: Melvi Qureshi on 50-72-3142Laosjms Test strip (U) [Mass/Vol]Glucose [Mass/volume] in Urine by Test stripNormalSuburban Community Hospital & Brentwood HospitalGlucose Test strip (U) [Mass/Vol]See commentNormKettering Health Greene MemorialComment on above: Unable to obtain accurate result due to color interference.Hematocrit Auto (Bld) [Volume fraction]Ordered By: Melvi Qureshi on 39-14-9981Sriiqhikau (Bld) [Volume fraction]Hematocrit [Volume Fraction] of Blood by Automated ftufdGgd47.8-50.0 [facility] Brent[facility] HospitalHemoglobin Test strip Ql (U)Ordered By: Melvi Qureshi on 96-72-6815Ltsjtamdec Ql (U)Hemoglobin [Presence] in Urine by Test strip NegativeSuburban Community Hospital & Brentwood HospitalHemoglobin Ql (U)See commentNegative [facility] Brentwood HospitalComment on above:Unable to obtain accurate result due to color interference.Hemoglobin [Mass/volume] in BloodOrdered By: Melvi Qureshi on 64-70-1870Htubjjexcw (Bld) [Mass/Vol]Hemoglobin [Mass/volume] in PytbdExz63.0-17.0[facility] Brent[facility] HospitalKetones Test strip (U) [Mass/Vol]Ordered By: Melvi Qureshi on 00-23-5160Jhwawnz (U) [Mass/Vol]Urine ketones measurement by test strip (mass/volume)NegativeSuburban Community Hospital & Brentwood HospitalKetones (U) [Mass/Vol]See commentNegativeSuburban Community Hospital & Brentwood HospitalComment on above:Unable to obtain accurate result due to color interference.Laboratory - Microbiology and Antimicrobial susceptibilityOrdered By: Melvi Qureshi on 38-30-3053Hrwkpllg identified Cx Nom (Bld)Enterococcus faecalisAbnoCincinnati Children's Hospital Medical CenterBacteria identified Cx Nom (Bld)Pseudomonas aeruginosaAbnoCincinnati Children's Hospital Medical CenterLactate [Moles/volume] in Serum or PlasmaOrdered By: Mario Jordan on 77-62-5739Nysbzsf [Moles/Vol]Lactate [Moles/volume] in Serum or PlasmaCritically high0.5-1.9 [facility] Brentwood HospitalLactate [Moles/Vol]2.2 mmol/LCritically high 0.5-1.9[facility] Brentwood HospitalComment on above:Critical Result : Called to and read back by: LEXIS DARNELL at: 07/13/2024 00:27:29 by:DHLactic Acid reference range has been updated to 0.5 1.9 mmol/L and the critical range of 2.0 or greater.Lactate [Moles/Vol]Lactate [Moles/volume] in Serum or Plasma Critically high0.5-1.9[facility] Brentwood HospitalLactic Acidon 07-12-2024 Lactate [Moles/Vol]2.2 mmol/LOff scale high0.5-1.9The [facility] Comment on above:Order Comment: 4P/33Result Comment: Critical Result : Called to and read back by: ALTON HYMAN at: 07/12/2024 19:37:40 by:PAB Lactic Acid reference range has been updated to 0.5 ? 1.9 mmol/L and the critical range of 2.0 or greater.PERFORMED BY:[facility]111[facility]BL[facility] METHODIST HOSPITALDARCI ESQUEDASEATTLE, [place] [phone] MEDICAL DIRECTORJAJA WHITE M.D.Performed By: #### LACTIC ####[address] [place] [address] USALactate [Moles/Vol]2.3 mmol/LOff scale high 0.5-1.9The [facility] Physician GroupComment on above:Result Comment: Critical Result : Called to and read back by: DORA DARDEN at: 07/12/2024 16:01:14 by:PAB Lactic Acid reference range has been updated to 0.5 ? 1.9 mmol/L and the critical range of 2.0 or greater.PERFORMED BY:[place] [address] [address] GOLDSTEINDaneAMEENASEATTLE, [place] [phone] MEDICAL DIRECTORJAJA CATES M.D.Performed By: #### HS TROP, CBC, CUBLD, MG, LACTIC, CMP ####[address] [address] USALactic Acid Reflexon 97-02-5106Egpiyd Acid Reflex2.2 mmol/LOff scale high0.5-1.9The [facility] Physician GroupComment on above:Order Comment: CHANGE PER FRANCES PIRES KAHResult Comment: Critical Result : Called to and read back by: LEXIS DARNELL at: 07/13/2024 00:27:29 by:DH Lactic Acid reference range has been updated to 0.5 ? 1.9 mmol/L and the critical range of 2.0 orgreater.PERFORMED BY:[place] [address] [address] [place]EENASE[place], [place] [phone] MEDICAL DIRECTORJAJA CATES M.D. Performed By: #### LACTIC RFX ####[address] [address]WBYAhjcml Acid Reflex3.0 mmol/LOff scale high0.5-1.9The [facility] Physician GroupComment on above:Result Comment: Critical Result : Called to and read back by: KATE DUBON at: 07/12/2024 21:43:37 by:PAB Lactic Acid reference range has been updated to 0.5 ? 1.9 mmol/L and the critical range of 2.0 or greater.PERFORMED BY:[place] [address] [address] [place]NA[place], [place] [phone] MEDICAL DIRECTORJAJA WHITE M.D.Performed By: #### LACTIC RFX ####[address] [address]BHLRpkjccdqj esterase [Presence] in Urine by Test stripOrdered By: Melvi Qureshi on 88-48-8781Ykertcfja esterase Test strip Ql (U)Leukocyte esterase [Presence] in Urine by Test stripNegativeSuburban Community Hospital & Brentwood HospitalLeukocyte esterase Test strip Ql (U)See commentNegative [facility] Brentwood HospitalComment on above:Unable to obtain accurate result due to color interference.Leukocytes [#/area] in Urine sediment by Microscopy high power fieldOrdered By: Melvi Qureshi on 18-11-6150DXP LM.HPF (Urine sed) [#/Area]Leukocytes [#/area] in Urine sediment by Microscopy high power fieldHigh0-4FMercy Health – The Jewish HospitalWBC LM.HPF (Urine sed) [#/Area]10-19 [HPF]High097 Thompson StreetLeukocytes [#/volume] corrected for nucleated erythrocytes in Blood by Automated counOrdered By: Melvi Qureshi on 04-88-8830MPD corrected for nucl RBC Auto (Bld) [#/Vol]Leukocytes [#/volume] corrected for nucleated erythrocytes in Blood by Automated coun 4.1-10.5FMercy Health – The Jewish HospitalLymphocytes Auto (Bld) [#/Vol]Ordered By: Melvi Qureshi on 46-48-3577Idjveipzwmf (Bld) [#/Vol]Lymphocytes [#/volume] in Blood by Automated countLow1.00-4.8[facility] Lymphocytes/100 WBC Auto (Bld)Ordered By: Melvi Qureshi on 07-12-2024 Lymphocytes/100 WBC (Bld)Lymphocytes/100 leukocytes in Blood by Automated count. [facility] & Brentwood HospitalLymphocytes/100 WBC Manual cnt (Bld)Ordered By: Mario Jordan on 09-89-3673Pqtytclngex/100 WBC (Bld)Lymphocytes/100 leukocytes in Blood by Manual tsqelEbl67-04EodljtswqSuburban Community Hospital & Brentwood HospitalLymphocytes/100 leukocytes in Blood by Manual countOrdered By: Mario Jordan on 07-12-2024 Lymphocytes/100 WBC (Bld)2 %Dnb63-09RjicemjouSuburban Community Hospital & Brentwood HospitalComment on above:Order Comment: 4P/33Performed By: #### DIFF CBC ####[facility] [place] [address] [facility] [place] Auto (RBC) [Entitic mass] Ordered By: Melvi Qureshi on 30-71-3384HHM (RBC) [Entitic mass]MCH [Entitic mass] by Automated count27.5-35.2FGalion HospitalHC Auto (RBC) [Mass/Vol]Ordered By: Melvi Qureshi on 65-91-2981CLOO (RBC) [Mass/Vol]MCHC [Mass/volume] by Automated count32.5-35.6FGalion HospitalV Auto (RBC) [Entitic vol]Ordered By: Melvi Qureshi on 88-37-6789KWT (RBC) [Entitic vol]MCV [Entitic volume] by Automated count83.5-101[facility] Brentwood HospitalMagnesiumon 63-39-5384Kebiqocqh [Mass/Vol]1.7 mg/dLLow1.9-2.7The Firsthealth Physician GroupComment on above:Result Comment: PERFORMED BY:[address] [place], [place] [phone] MEDICAL DIRECTORJAJA CATES M.D.Performed By: #### HS TROP, CBC, CUBLD, MG, LACTIC, CMP ####[facility] [place] [address] USAMagnesium [Mass/volume] in Serum or PlasmaOrdered By: Melvi Qureshi on 06-70-0949Hlugtpafb [Mass/Vol]Magnesium [Mass/volume] in Serum or PlasmaLow 1.9-2.7FMercy Health – The Jewish HospitalMonocyte distribution width [Entitic volume] in Blood by AutomatedOrdered By: Melvi Qureshi on 55-21-0415Juyvnyje distribution width Auto (Bld) [Entitic vol]Monocyte distribution width [Entitic volume] in Blood by AutomatedHigh0.00-20.00[facility] Monocyte distribution width [Entitic volume] in Blood by AutomatedOrdered By: Mario Jordan on 40-22-0190Vdvmawgs distribution width Auto (Bld) [Entitic vol] 29.58 %High0.00-20.00[facility] Brentwood HospitalComment on above:For adults in ED, MDW > 20.0 may be associated with a higher risk of sepsis during the first 12 hrs of hospital admissionThe predictive value of MDW for identifying sepsis in patients with hematological abnormalities has not been establishedMonocytes Auto (Bld) [#/Vol]Ordered By: Melvi Qureshi on 07-12-2024 Monocytes (Bld) [#/Vol]Automated blood monocyte count0.0-0.8[facility] HospitalMonocytes/100 WBC Auto (Bld)Ordered By: Melvi Qureshi on 07-12-2024 Monocytes/100 WBC (Bld)Automated monocyte %.[facility] Monocytes/100 WBC Manual cnt (Bld)Ordered By: Mario Jordan on 07-12-2024 Monocytes/100 WBC (Bld)Monocytes/100 leukocytes in Blood by Manual countLow2 [facility] HospitalMonocytes/100 leukocytes in Blood by Manual countOrdered By: Mario Jordan on 53-41-5207Qbeewuqfb/100 WBC (Bld)1 %Low2- [facility] Brentwood HospitalComment on above:Order Comment: 4P/33Performed By: #### DIFF CBC ####[facility] [address] [place] [address] USANatriuretic peptide B [Mass/Vol]Ordered By: Melvi Qureshi on 16-96-2732Dyoslanmwhv peptide B (Bld) [Mass/Vol]BNP ser/plasHigh5-100[facility] HospitalNeutrophils Auto (Bld) [#/Vol]Ordered By: Melvi Qureshi on 62-92-0536Vrvbyuxbgtq (Bld) [#/Vol]Neutrophils [#/volume] in Blood by Automated count1.8-7.7FMercy Health – The Jewish HospitalNeutrophils/100 WBC Auto (Bld) Ordered By: Melvi Qureshi on 48-34-8268Cxepfwqvsmo/100 WBC (Bld)Automated neutrophil %.[facility]wood HospitalNiite Test strip Ql (U)Ordered By: Melvi Qureshi on 63-59-5112Nzarobx Ql (U)Nitrite [Presence] in Urine by Test stripNegativeSuburban Community Hospital & Brentwood HospitalNitrite Ql (U)See commentNegative [facility] Brentwood HospitalComment on above:Unable to obtain accurate result due to color interference.No Panel InformationOrdered By: Melvi Qureshi on 98-49-9796Wawswnyqb ID (NA Multiplex Assay)[facility] AbnormalSuburban Community Hospital & Brentwood HospitalAbnormKettering Health Greene MemorialEnterococcus faecalisAbnoCincinnati Children's Hospital Medical CenterPseudomonas aeruginosaAbnoCincinnati Children's Hospital Medical Center42.119 mL/MinSuburban Community Hospital & Brentwood Hospital38.97[facility] HospitalNucleated erythrocytes [Presence] in Blood by Automated countOrdered By: Melvi Qureshi on 74-66-3675Wsifqmjce RBC Auto Ql (Bld)Nucleated erythrocytes [Presence] in Blood by Automated count0-0.5FMercy Health – The Jewish HospitalPlatelet mean volume Auto (Bld) [Entitic vol]Ordered By: Melvi Qureshi on 28-27-6481Aetjdivv mean volume (Bld) [Entitic vol]Platelet mean volume [Entitic volume] in Blood by Automated count6.6-10.1FMercy Health – The Jewish HospitalPlatelets Auto (Bld) [#/Vol]Ordered By: Melvi Qureshi on 60-13-5475Wkaydbqat (Bld) [#/Vol]Platelets [#/volume] in Blood by Automated -850AcpkdusroSuburban Community Hospital & [facility] Hospital Potassium [Moles/volume] in Serum or PlasmaOrdered By: Melvi Qureshi on 07-12-2024 Potassium [Moles/Vol]Potassium [Moles/volume] in Serum or Plasma3.5-5.1FMercy Health – The Jewish HospitalProtein Test strip (U) [Mass/Vol]Ordered By: Melvi Qureshi on 02-68-0358Nslzhfo (U) [Mass/Vol]Protein [Mass/volume] in Urine by Test strip NegativeSuburban Community Hospital & Brentwood HospitalProtein (U) [Mass/Vol]See comment NegativeSuburban Community Hospital & Brentwood HospitalComment on above:Unable to obtain accurate result due to color interference.Protein [Mass/volume] in Serum or PlasmaOrdered By: Melvi Qureshi on 47-17-4569Fjewxqv [Mass/Vol]Protein [Mass/volume] in Serum or Plasma6.4-8.9[facility] HospitalRBC Auto (Bld) [#/Vol]Ordered By: Melvi Qureshi on 28-24-6164ZVY (Bld) [#/Vol]Erythrocytes [#/volume] in Blood by Automated countLow3.90-5.60[facility] HospitalRespiratory specimen influenza A virus, influenza B virus, respiratory syncytical virOrdered By: Melvi Qureshi on 97-00-2700MIPB-CoV-2 (COVID-19) RNA SMITHA+probe Ql (Unsp spec)NormalSuburban Community Hospital & Brentwood HospitalComment on above: Performed By: #### COVID19 FLU RSV, CEPHEID NEG ####[facility] [address] [place] [address] USASegmented neutrophils/100 WBC Manual cnt (Bld)Ordered By: Mario Jordan on 70-91-2220Ylkeecozy neutrophils/100 WBC (Bld)Manual blood segmented neutrophils/100 iyrjggyzmySawy88-51KibbtzxeiSt. Francis Hospitalegmented neutrophils/100 leukocytes in Blood by Manual countOrdered By: Mario Jordan on 50-53-0155Zvdibqmad neutrophils/100 WBC (Bld)93 %Asvg10-56AlxttwwsdSuburban Community Hospital & Brentwood HospitalComment on above:Order Comment: 4P/33 Performed By: #### DIFF CBC ####[facility] [address] [place] [address] USASerum or plasma albumin/globulin mass ratioOrdered By: Melvi Qureshi on 99-82-4198Htfeclv/Globulin [Mass ratio]Serum or plasma albumin/globulin mass ratioSt. Francis Hospitalerum or plasma anion gap determinationOrdered By: Melvi Qureshi on 58-05-8227Lkhyn gap [Moles/Vol]Serum or plasma anion gap determination6.0-15.0St. Francis Hospitalodium [Moles/volume] in Serum or PlasmaOrdered By: Melvi Qureshi on 87-86-6310Iixyhf [Moles/Vol]Sodium [Moles/volume] in Serum or DdniuiRop197-389 St. Francis Hospitalpecific gravity of Urine by Refractometry Ordered By: Melvi Qureshi on 32-59-7802Zfkgiaej gravity Refractometry (U) [Rel density]Specific gravity of Urine by Refractometry1.001-1.030St. Francis Hospitalpecific gravity Refractometry (U) [Rel density]1.0201.001-1.030 St[address] Francis Hospitaltomatocytes [Presence] in Blood by Light microscopyOrdered By: Mario Jordan on 81-08-7826Ifqhfuhcqoez LM Ql (Bld)Red blood cell stomatocyte detectionSt. Francis Hospitaltomatocytes LM Ql (Bld)SlightSuburban Community Hospital & Brentwood HospitalTroponin I High Sensitivityon 82-93-6019Qmfexrsl I High Subldvyknfu95Ynwo9-39Tem [facility] Comment on above:Result Comment: The Troponin units of report have been changed to meet the Chest Pain Accreditationrequirement, element EC5.M1l2. Troponin units are changed from pg/ml to ng/L. Also, the decimal is removed and results are in whole numbers.PERFORMED BY:[address] [place], [place] [phone] MEDICAL DIRECTORJAJA WHITE M.D.Performed By: #### HS TROP, CBC, CUBLD, MG, LACTIC, CMP ####[address] [address] [facility] Troponin I.cardiac [Mass/volume] in Serum or Plasma by Detection limit <= 0.01 ng/Ordered By: Melvi Qureshi on 57-51-5483Dzqaffov I.cardiac DL <= 0.01 ng/mL [Mass/Vol]Troponin I.cardiac [Mass/volume] in Serum or Plasma by Detection limit <= 0.01 ng/High0[facility]wood HospitalTroponin I.cardiac [Mass/volume] in Serum or Plasma by Detection limit <= 0.01 ng/mLOrdered By: Melvi Qureshi on 47-97-5438Wrifvmtm I.cardiac DL <= 0.01 ng/mL [Mass/Vol]21 ng/L High0-[facility] Brentwood HospitalComment on above:The Troponin units of report have been changed to meet the Chest Pain Accreditation requirement, jeremy ment EC5.M1l2. Troponin units are changed from pg/ml to ng/L. Also, the decimal is removed and results are in whole numbers.Urea nitrogen [Mass/volume] in Serum or PlasmaOrdered By: Melvi Qureshi on 32-58-0607Wotc nitrogen [Mass/Vol]Urea nitrogen [Mass/volume] in Serum or PlasmaHigh7-25[facility] Brentwood HospitalUrine Cultureon 79-42-2078Awvoivjt identified Cx Nom (U)NormalThe Firsthealth Physician GroupComment on above:Performed By: #### CUU ####[facility] [address] [place] [address] USAUrine appearance determinationOrdered By: Melvi Qureshi on 87-11-8477Pjnnharfvi (U)Urine appearance AbnormalCleMercer County Community HospitalAppearance (U)TurbidCritically abnormalGeorgetown Behavioral HospitalComment on above:Order Comment: Name Collection Type:: Chou CatheterPerformed By: #### ADDONUAPLUS ####[facility] [address] [place] [address] USAUrine color determinationOrdered By: Melvi Qureshi on 77-41-5531Omgcl (U)Urine color AbnormalYellowSuburban Community Hospital & Brentwood HospitalColor (U)RedCritically abnormal YellowSuburban Community Hospital & Brentwood HospitalComment on above:Order Comment: Name Collection Type:: Chou CatheterPerformed By: #### ADDONUAPLUS ####[facility] [address] [place] [address] USAUrine cultureOrdered By: Rowena Jordan on 32-77-7452Nfcnjngc identified Cx Nom (U)Pseudomonas aeruginosaAbWayne HospitalBacteria identified Cx Nom (U)Enterococcus faecalisAbWayne HospitalUrine culture AbnormalSuburban Community Hospital & Brentwood HospitalUrine cultureAbWayne HospitalUrobilinogen Test strip (U) [Mass/Vol]Ordered By: Melvi Qureshi on 41-18-4933Qdpprmbpdxsu (U) [Mass/Vol]Urobilinogen [Mass/volume] in Urine by Test stripNoCincinnati Children's Hospital Medical CenterUrobilinogen (U) [Mass/Vol]See commentNoCincinnati Children's Hospital Medical CenterComment on above:Unable to obtain accurate result due to color interference.Urology Office/Clinic Noteon 56-74-6738Oquqvpt Office/Clinic NoteUrology Office/Clinic Note Chief Complaint Cysto [...] Prior Dr Good pt. Pt resides at [facility] for rehab. Pt/s daughter is with him today. 1. Urinary retention (R33.9: Retention of urine, unspecified) Pt underwent lumbar decompression w/ fusion 02/21/24. Discharged to [facility] for rehab. Subsequently admitted to [facility] 03/10/2024-03/15/2024 for LIS secondary to acute urinary [...] recent stone imaging. 4. 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 Elevated risk of periop complications 5. Hypospadias (Q54.9: Hypospadias, unspecified) See procedure section. (more content not included)...Marion HospitalComment on above:Result Comment: Electronically Signed By: Anup TIDWELL, Trisha Degroot\.br\Date and Time Signed: 07/12/24 09:19EDT\.br\Electronically Co-Signed By: Dulce Maria Brown\.br\Date and Time Co-Signed: 07/12/24 08:58 E DT\.br\Electronically Co-Signed By: Dulce Maria Brown P\.br\Date and Time Co- Signed: 07/12/24 09:02 EDT\.br\Electronically Co-Signed By: Dulce Maria Brown P\.br\Date and Time Co-Signed: 07/12/24 09:05 EDTWBC Auto (Bld) [#/Vol]Ordered By: Melvi Qureshi on 12-97-6893PJW (Bld) [#/Vol]Leukocytes [#/volume] in Blood by Automated count4.1-10.5FMercy Health – The Jewish HospitalX-ray reportOrdered By: Ortega Groves on 21-91-0255Iqmiv reportSuburban Community Hospital & Brentwood HospitalXR chest 1V portableon 39-01-6982HF chest 1V portableNoAsheville Specialty Hospital Physician GrouppH Test strip (U)Ordered By: Melvi Qureshi on 27-70-7974hP (U)pH of Urine by Test strip5.0-9.0[facility] Brentwood HospitalpH (U)See comment5.0-9.0 [facility] Brentwood HospitalComment on above:Unable to obtain accurate result due to color interference.Provider Letteron 14-83-4143Klnggzpk Letter Randi Burris MD [address], [place] [address] Re: Tavo Jadynroel Date of Visit: 07/11/[address] Burris, Thank you for your referral to my office. Attached you will find the most recent office visit note.Please call if you have any questions or concerns. Sincerely, Tye Pompa MD [address], [address] [place] [address] The following document(s) were included in the letter: July 11, 2024 15:20:30 EDT - (07/11/2024) Telehealth Office Visit NoteNormal [facility] NorthBasophils Auto (Bld) [#/Vol]Ordered By: Sandip Bunting on 38-38-3287Krywvxeve (Bld) [#/Vol]Automated basophil count0.0-0.2 [facility] Brentwood HospitalBasophils [#/volume] in Blood by Automated countOrdered By: Sandip Bunting on 70-84-8313Aobdkjkxe (Bld) [#/Vol]0.0 10*3/uL Normal0.0-0.2FMercy Health – The Jewish HospitalComment on above:Performed By: #### CBC, ESR, CRP ####[facility] [address] [place] [address] USABasophils/100 WBC Auto (Bld)Ordered By: Sandip Bunting on 07-09-2024 Basophils/100 WBC (Bld)Automated basophil %.[facility] Basophils/100 leukocytes in Blood by Automated countOrdered By: Sandip Bunting on 89-28-2899Jszylxhri/100 WBC (Bld)0.1 %Normal.[facility] Brentwood HospitalComment on above:Performed By: #### CBC, ESR, CRP ####[facility] [address] [place] [address] USAC reactive protein [Mass/volume] in Serum or PlasmaOrdered By: Sandip Bunting on 28-36-5843YFY [Mass/Vol]C reactive protein [Mass/volume] in Serum or PlasmaHigh0.0-0.5 [facility]wood HospitalCRP [Mass/Vol]2.4 mg/dLHigh0.0-0.5FMercy Health – The Jewish HospitalC-Reactive Proteinon 58-98-3499I-Reactive Protein2.4 mg/dLHigh0.0-0.5The Firsthealth Physician GroupComment on above:Result Comment: PERFORMED BY:[address] [place], [place] [phone] MEDICAL DIRECTORJAJA CATES M.D. Performed By: #### CBC, ESR, CRP ####[place] [id number] USAComplete Blood Count Auto Diffon 69-49-5557Wagd Corpuscular HGB Conc32.5 g/bRUxwvnq89.5-35.6The [facility] Physician Laird HospitalComment on above:Performed By: #### CBC, ESR, CRP ####[place] [address] USANRBC%0.0 /100{WBC}Normal0-0.5The [facility] Physician Laird HospitalComment on above:Performed By: #### CBC, ESR, CRP ####[place] [address] [place] Eosinophils Auto (Bld) [#/Vol]Ordered By: Sandip Bunting on 07-09-2024 Eosinophils (Bld) [#/Vol]Automated eosinophil count0.0-0.45[facility] Brentwood HospitalEosinophils [#/volume] in Blood by Automated countOrdered By: Sandip Bunting on 56-19-7858Vnvcuoahnsm (Bld) [#/Vol]0.0 10*3/uLNormal0.0-0.45 [facility] Brentwood HospitalComment on above:Performed By: #### CBC, ESR, CRP ####[place] [address] [place] Eosinophils/100 WBC Auto (Bld)Ordered By: Sandip Bunting on 07-09-2024 Eosinophils/100 WBC (Bld)Automated eosinophil %.[facility] Brentwood HospitalEosinophils/100 leukocytes in Blood by Automated countOrdered By: Sandip Bunting on 07-99-9653Fjxioodpchq/100 WBC (Bld)0.4 %Normal.[facility] Brentwood HospitalComment on above:Performed By: #### CBC, ESR, CRP ####[address] [address] [facility] M[facility]ICOErythrocyte Sedimentation Rateon 36-83-7833SJY (Bld) [Velocity]52 mm/hHigh0-The Firsthealth Physician GroupComment on above:Result Comment: PERFORMED BY:[address] [place], [place] [phone] MEDICAL DIRECTORJAJA CATES M.D.Performed By: #### CBC, ESR, CRP ####[place] [address] [facility] Erythrocyte distribution width Auto (RBC) [Ratio]Ordered By: Sandip Bunting on 74-05-4199Zdjrtlqjswb distribution width (RBC) [Ratio]Erythrocyte distribution width [Ratio] by Automated orzgmPxut75.0-14.[address] [place] [address] Erythrocyte distribution width [Ratio] by Automated countOrdered By: Sandip Bunting on 45-81-9084Qjjrchrrixt distribution width (RBC) [Ratio]17.6 %High 12.0-14.[address] [place], [place] [address]Comment on above:Performed By: #### CBC, ESR, CRP ####[place] [id number] USAErythrocyte sedimentation rate by Photometric methodOrdered By: Sandip Bunting on 78-19-3365BPG Photometric method (Bld) [Velocity]Erythrocyte sedimentation rate by Photometric methodBraxton County Memorial HospitalSalem City HospitalR Photometric method (Bld) [Velocity]52 mm/hrBraxton County Memorial Hospital0-19[facility] Brentwood HospitalErythrocytes [#/volume] in Blood by Automated countOrdered By: Sandip Bunting on 62-30-3161UNM (Bld) [#/Vol]3.01 10*6/uLLow3.90-5.60[facility] Brent[facility] HospitalComment on above:Performed By: #### CBC, ESR, CRP ####[place] [address] [place] [address] [place] Hematocrit Auto (Bld) [Volume fraction]Ordered By: Sandip Bunting on 07-09-2024 Hematocrit (Bld) [Volume fraction]Hematocrit [Volume Fraction] of Blood by Automated mhujiLxc00.8-50.0[facility] Brentwood HospitalHematocrit [Volume Fraction] of Blood by Automated countOrdered By: Sandip Bunting on 07-09-2024 Hematocrit (Bld) [Volume fraction]27.1 %Low38.8-50.0[facility] Brentwood HospitalComment on above:Performed By: #### CBC, ESR, CRP ####[place] [address] [place] [id number] USAHemoglobin [Mass/volume] in BloodOrdered By: Sandip Bunting on 95-69-0819Qkpxfkkvgt (Bld) [Mass/Vol] Hemoglobin [Mass/volume] in RsmflQpb79.0-17.0[facility] Hemoglobin (Bld) [Mass/Vol]8.8 g/dLLow13.0-17.0[facility] Comment on above:Performed By: #### CBC, ESR, CRP ####[place] [address] USALeukocytes [#/volume] corrected for nucleated erythrocytes in Blood by Automated counOrdered By: Sandip Bunting on 12-69-2640QEJ corrected for nucl RBC Auto (Bld) [#/Vol]Leukocytes [#/volume] corrected for nucleated erythrocytes in Blood by Automated coun4.1-10.5FMercy Health – The Jewish HospitalWBC corrected for nucl RBC Auto (Bld) [#/Vol]8.1 10*3/uL 4.1-10.5FMercy Health – The Jewish HospitalLeukocytes [#/volume] in Blood by Automated countOrdered By: Sandip Bunting on 43-97-2596PVU (Bld) [#/Vol]8.1 10*3/uLNormal4.1-10.5FMercy Health – The Jewish HospitalComment on above:Performed By: #### CBC, ESR, CRP ####[address] [address] USALymphocytes Auto (Bld) [#/Vol]Ordered By: Sandip Bunting on 61-06-7145Wbevvveibir (Bld) [#/Vol]Lymphocytes [#/volume] in Blood by Automated count1.00-4.8[facility] & Brentwood HospitalLymphocytes [#/volume] in Blood by Automated countOrdered By: Sandip Bunting on 92-66-1954Txtwdjkwjkl (Bld) [#/Vol]1.0 10*3/uLNormal1.00-4.8[facility] Brentwood HospitalComment on above:Performed By: #### CBC, ESR, CRP ####[place] [address] USALymphocytes/100 WBC Auto (Bld)Ordered By: Sandip Bunting on 40-71-8249Wscnjfrntaa/100 WBC (Bld)Lymphocytes/100 leukocytes in Blood by Automated count.[facility] Brentwood HospitalLymphocytes/100 leukocytes in Blood by Automated countOrdered By: Sandip Bunting on 07-09-2024 Lymphocytes/100 WBC (Bld)12.5 %Normal.[facility] Brentwood HospitalComment on above:Performed By: #### CBC, ESR, CRP ####[place] [address] [facility] Auto (RBC) [Entitic mass]Ordered By: Sandip Bunting on 85-29-5576WAY (RBC) [Entitic mass]MCH [Entitic mass] by Automated count27.5-35.2FGlenbeigh Hospital [Entitic mass] by Automated countOrdered By: Sandip Bunting on 41-80-4654CON (RBC) [Entitic mass] 29.3 omZssyki55.5-35.2FMercy Health – The Jewish HospitalComment on above: Performed By: #### CBC, ESR, CRP ####[place] [address] USAMCHC Auto (RBC) [Mass/Vol]Ordered By: Sandip Bunting on 46-76-1874IYOX (RBC) [Mass/Vol]MCHC [Mass/volume] by Automated count 32.5-35.6FGalion HospitalHC (RBC) [Mass/Vol]32.5 g/dL 32.5-35.6FMercy Health – The Jewish HospitalMCV Auto (RBC) [Entitic vol]Ordered By: Sandip Bunting on 17-57-3058FMB (RBC) [Entitic vol]MCV [Entitic volume] by Automated count83.-101Clinton Memorial HospitalV [Entitic volume] by Automated countOrdered By: Sandip Bunting on 65-45-0391JCF (RBC) [Entitic vol] 90.1 tGObvfzb12.[address] StreetComment on above:Performed By: #### CBC, ESR, CRP ####[place] [address] USAMonocytes Auto (Bld) [#/Vol]Ordered By: Sandip Bunting on 35-19-3271Tlorakkpa (Bld) [#/Vol]Automated blood monocyte count 0.0-0.8[facility] Brentwood HospitalMonocytes [#/volume] in Blood by Automated countOrdered By: Sandip Bunting on 19-13-5108Azutmzkzc (Bld) [#/Vol] 0.6 10*3/uLNormal0.0-0.8[facility] Brentwood HospitalComment on above: Performed By: #### CBC, ESR, CRP ####[place] [id number] USAMonocytes/100 WBC Auto (Bld)Ordered By: Sandip Bunting on 93-90-1819Lbdzitnlw/100 WBC (Bld)Automated monocyte %.[facility] Brentwood HospitalMonocytes/100 leukocytes in Blood by Automated count Ordered By: Sandip Bunting on 58-74-6373Gmluldszr/100 WBC (Bld)7.3 %Normal. [facility] Brentwood HospitalComment on above:Performed By: #### CBC, ESR, CRP ####[place] [address] [place] Neutrophils Auto (Bld) [#/Vol]Ordered By: Sandip Bunting on 07-09-2024 Neutrophils (Bld) [#/Vol]Neutrophils [#/volume] in Blood by Automated count 1.8-7.7FMercy Health – The Jewish HospitalNeutrophils [#/volume] in Blood by Automated countOrdered By: Sandip Bunting on 42-38-5494Eoijbayeczq (Bld) [#/Vol] 6.4 10*3/uLNormal1.8-7.7FMercy Health – The Jewish HospitalComment on above: Performed By: #### CBC, ESR, CRP ####[facility] [address] [place] [address] USANeutrophils/100 WBC Auto (Bld)Ordered By: Sandip Bunting on 34-44-1088Xnibbekgvtx/100 WBC (Bld)Automated neutrophil %.[facility] Brentwood HospitalNeutrophils/100 leukocytes in Blood by Automated count Ordered By: Sandip Bunting on 28-00-1709Yfcumqpxlvs/100 WBC (Bld)79.7 %Normal. [facility] Brentwood HospitalComment on above:Performed By: #### CBC, ESR, CRP ####[facility] [address] [place] [address] Nucleated erythrocytes [Presence] in Blood by Automated countOrdered By: Sandip Bunting on 15-98-5628Xeeuamwdu RBC Auto Ql (Bld)Nucleated erythrocytes [Presence] in Blood by Automated count0-0.5FMercy Health – The Jewish Hospital Nucleated RBC Auto Ql (Bld)0.0 /100{WBC}0-0.5FMercy Health – The Jewish Hospital Platelet mean volume Auto (Bld) [Entitic vol]Ordered By: Sandip Bunting on 54-93-1742Lfyyevgu mean volume (Bld) [Entitic vol]Platelet mean volume [Entitic volume] in Blood by Automated count6.6-10.1FMercy Health – The Jewish Hospital Platelet mean volume [Entitic volume] in Blood by Automated countOrdered By: Sandip Bunting on 19-89-0092Tqodhkdl mean volume (Bld) [Entitic vol]7.8 fLNormal 6.6-10.1FMercy Health – The Jewish HospitalComment on above:Performed By: #### CBC, ESR, CRP ####[facility] [address] [place] [address] USAPlatelets Auto (Bld) [#/Vol]Ordered By: Sandip Bunting on 07-09-2024 Platelets (Bld) [#/Vol]Platelets [#/volume] in Blood by Automated wphiy015-261 [facility] Brentwood HospitalPlatelets [#/volume] in Blood by Automated countOrdered By: Sandip Bunting on 54-58-0981Autfxkkrz (Bld) [#/Vol]234 10*3/uL Qcbvob652-590CzriasyjrSuburban Community Hospital & Brentwood HospitalComment on above:Performed By: #### CBC, ESR, CRP ####[facility] [place] [address] USARBC Auto (Bld) [#/Vol]Ordered By: Sandip Bunting on 77-71-9560UAO (Bld) [#/Vol]Erythrocytes [#/volume] in Blood by Automated countLow3.90-5.60 [facility] Brentwood HospitalWBC Auto (Bld) [#/Vol]Ordered By: Sandip Bunting on 03-01-5985EIA (Bld) [#/Vol]Leukocytes [#/volume] in Blood by Automated count4.1-10.5FMercy Health – The Jewish HospitalBasophils Auto (Bld) [#/Vol]Ordered By: Sandip Bunting on 45-96-3198Kateglrlc (Bld) [#/Vol]Automated basophil count0.0-0.2FMercy Health – The Jewish HospitalBasophils [#/volume] in Blood by Automated countOrdered By: Sandip Bunting on 74-25-1566Sufygfuaq (Bld) [#/Vol]0.1 10*3/uLNormal0.0-0.2FMercy Health – The Jewish HospitalComkresge eye institute on above:Performed By: #### CBC, ESR, CRP ####[facility] [place] [address] USABasophils/100 WBC Auto (Bld)Ordered By: Sandip Bunting on 02-49-9329Ozhypgqme/100 WBC (Bld)Automated basophil %.[facility] HospitalBasophils/100 leukocytes in Blood by Automated count Ordered By: Sandip Aguirre on 08-50-3884Kvdodbtti/100 WBC (Bld)1.3 %Normal. [facility] & Brentwood HospitalComment on above:Performed By: #### CBC, ESR, CRP ####[address] [address] USAC reactive protein [Mass/volume] in Serum or PlasmaOrdered By: Sandip Aguirre on 85-40-1202QYI [Mass/Vol]C reactive protein [Mass/volume] in Serum or PlasmaHigh 0.0-0.5FMercy Health – The Jewish HospitalCRP [Mass/Vol]8.0 mg/dLHigh0.0-0.5 [facility] HospitalC-Reactive Proteinon 08-65-9634U-Reactive Protein8.0 mg/dLHigh0.0-0.5The Firsthealth Physician GroupComment on above:Result Comment: PERFORMED BY:[address] [place], [place] [phone] MEDICAL DIRECTORJAJA CATES M.D. Performed By: #### CBC, ESR, CRP ####[address] [address] USAComplete Blood Count Auto Diffon 74-37-8504Lkzv Corpuscular HGB Conc32.9 g/mBQnxfyn62.5-35.6The Firsthealth Physician GroupComment on above:Performed By: #### CBC, ESR, CRP ####[address] [address] USANRBC%0.0 /100{WBC}Normal0-0.5The Firsthealth Physician GroupComment on above:Performed By: #### CBC, ESR, CRP ####[address] [address] [place] Eosinophils Auto (Bld) [#/Vol]Ordered By: Sandip Aguirre on 07-02-2024 Eosinophils (Bld) [#/Vol]Automated eosinophil count0.0-0.45FirDayton VA Medical CenterEosinophils [#/volume] in Blood by Automated countOrdered By: Sandip Bunting on 03-62-1025Fflqbzvgzmg (Bld) [#/Vol]0.4 10*3/uLNormal0.0-0.45 [facility] Brentwood HospitalComment on above:Performed By: #### CBC, ESR, CRP ####[place] [address] [facility] Eosinophils/100 WBC Auto (Bld)Ordered By: Sandip Bunting on 07-02-2024 Eosinophils/100 WBC (Bld)Automated eosinophil %.[facility] HospitalEosinophils/100 leukocytes in Blood by Automated countOrdered By: Sandip Bunting on 04-03-3612Iqkancxdoij/100 WBC (Bld)6.4 %Normal.[facility] Brentwood HospitalComment on above:Performed By: #### CBC, ESR, CRP ####[place] [address] [facility] M[facility]ICOErythrocyte Sedimentation Rateon 56-59-9840SMO (Bld) [Velocity]95 mm/hHigh0-19The Firsthealth Physician GroupComment on above:Result Comment: PERFORMED BY:[address] [place], [place] [phone] MEDICAL DIRECTORMOKAIT CATES M.D.Performed By: #### CBC, ESR, CRP ####[place] [address] [facility] Erythrocyte distribution width Auto (RBC) [Ratio]Ordered By: Sandip Bunting on 74-55-6223Agznukzekwj distribution width (RBC) [Ratio]Erythrocyte distribution width [Ratio] by Automated foeokVbxf71.0-14.8[facility] Erythrocyte distribution width [Ratio] by Automated countOrdered By: Sandip Bunting on 53-68-9353Jelueglwvor distribution width (RBC) [Ratio]17.1 %High 12.0-14.8[facility] Brentwood HospitalComment on above:Performed By: #### CBC, ESR, CRP ####[place] [address] USAErythrocyte sedimentation rate by Photometric methodOrdered By: Sandip Aguirre on 66-50-5099VWC Photometric method (Bld) [Velocity]Erythrocyte sedimentation rate by Photometric method75 Butler StreetESR Photometric method (Bld) [Velocity]95 mm/hr75 Butler StreetErythrocytes [#/volume] in Blood by Automated countOrdered By: Sandip Bunting on 63-81-9872HVO (Bld) [#/Vol]2.89 10*6/uLLow3.90-5.60[facility] Brentwood HospitalComment on above:Performed By: #### CBC, ESR, CRP ####[facility] [address] [place] [address] [place] Hematocrit Auto (Bld) [Volume fraction]Ordered By: Sandip Bunting on 07-02-2024 Hematocrit (Bld) [Volume fraction]Hematocrit [Volume Fraction] of Blood by Automated xumfkOzn09.8-50.0[facility]wood HospitalHematocrit [Volume Fraction] of Blood by Automated countOrdered By: Sandip Aguirre on 07-02-2024 Hematocrit (Bld) [Volume fraction]25.7 %Low38.8-50.0[facility] Brentwood HospitalComment on above:Performed By: #### CBC, ESR, CRP ####[place] [address] USAHemoglobin [Mass/volume] in BloodOrdered By: Sandip Aguirre on 60-88-9949Qtwpiuljzj (Bld) [Mass/Vol] Hemoglobin [Mass/volume] in BhruxXbv03.0-17.0[facility] Hemoglobin (Bld) [Mass/Vol]8.5 g/dLLow13.0-17.0[facility] Comment on above:Performed By: #### CBC, ESR, CRP ####[place] [address] USALeukocytes [#/volume] corrected for nucleated erythrocytes in Blood by Automated counOrdered By: Sandip Aguirre on 41-57-8328PIK corrected for nucl RBC Auto (Bld) [#/Vol]Leukocytes [#/volume] corrected for nucleated erythrocytes in Blood by Automated coun4.1-10.5FMercy Health – The Jewish HospitalWBC corrected for nucl RBC Auto (Bld) [#/Vol]6.7 10*3/uL 4.1-10.5FMercy Health – The Jewish HospitalLeukocytes [#/volume] in Blood by Automated countOrdered By: Sandip Bunting on 12-55-6503PNS (Bld) [#/Vol]6.7 10*3/uLNormal4.1-10.5FMercy Health – The Jewish HospitalComment on above:Performed By: #### CBC, ESR, CRP ####[facility] [address] [place] [address] USALymphocytes Auto (Bld) [#/Vol]Ordered By: Sandip Aguirre on 78-41-5745Jbywsjrnhwr (Bld) [#/Vol]Lymphocytes [#/volume] in Blood by Automated count1.00-4.8[facility] Brentwood HospitalLymphocytes [#/volume] in Blood by Automated countOrdered By: Sandip Bunting on 46-00-7836Udorhmszdiu (Bld) [#/Vol]1.4 10*3/uLNormal1.00-4.8[facility] Brentwood HospitalComment on above:Performed By: #### CBC, ESR, CRP ####[place] [address] [place] [address] USALymphocytes/100 WBC Auto (Bld)Ordered By: Sandip Aguirre on 85-95-7489Roscpayynyl/100 WBC (Bld)Lymphocytes/100 leukocytes in Blood by Automated count.[facility] Brentwood HospitalLymphocytes/100 leukocytes in Blood by Automated countOrdered By: Sandip Bunsantiago on 07-02-2024 Lymphocytes/100 WBC (Bld)21.2 %Normal.[facility] Brentwood HospitalComment on above:Performed By: #### CBC, ESR, CRP ####[address] [place] [address] [facility] [place] Auto (RBC) [Entitic mass]Ordered By: Sandip Bunting on 18-84-1177PQJ (RBC) [Entitic mass]MCH [Entitic mass] by Automated count27.5-35.2FGlenbeigh Hospital [Entitic mass] by Automated countOrdered By: Sandip Bunting on 52-15-6000QYY (RBC) [Entitic mass] 29.2 amIuwmby31.5-35.2FMercy Health – The Jewish HospitalComment on above: Performed By: #### CBC, ESR, CRP ####[facility] [address] [place] [address] [facility] ENIDHC Auto (RBC) [Mass/Vol]Ordered By: Sandip Bunting on 01-98-7373VUTM (RBC) [Mass/Vol]MCHC [Mass/volume] by Automated count 32.5-35.6FGalion HospitalHC (RBC) [Mass/Vol]32.9 g/dL 32.5-35.6FGalion HospitalV Auto (RBC) [Entitic vol]Ordered By: Sandip Bunting on 43-16-4154STR (RBC) [Entitic vol]MCV [Entitic volume] by Automated count83.5-101Clinton Memorial HospitalV [Entitic volume] by Automated countOrdered By: Sandip Bunting on 56-03-0798CHT (RBC) [Entitic vol] 88.9 uFLbuvsk16.5-101[facility] Brentwood HospitalComment on above:Performed By: #### CBC, ESR, CRP ####[place] [address] USAMonocytes Auto (Bld) [#/Vol]Ordered By: Sandip Bunting on 65-40-9006Rvbwgvnkf (Bld) [#/Vol]Automated blood monocyte count 0.0-0.8[facility] HospitalMonocytes [#/volume] in Blood by Automated countOrdered By: Sandip Bunting on 52-80-3165Fojisrkgh (Bld) [#/Vol] 0.3 10*3/uLNormal0.0-0.8[facility] Brentwood HospitalComment on above: Performed By: #### CBC, ESR, CRP ####[facility] [address] [place] [address] USAMonocytes/100 WBC Auto (Bld)Ordered By: Sandip Bunting on 04-95-4980Sgjqyvpht/100 WBC (Bld)Automated monocyte %.[facility] HospitalMonocytes/100 leukocytes in Blood by Automated count Ordered By: Sandip Bunting on 70-47-8901Dulxolscs/100 WBC (Bld)4.8 %Normal. [facility] Brentwood HospitalComment on above:Performed By: #### CBC, ESR, CRP ####[facility] [address] [place] [address] [facility] Neutrophils Auto (Bld) [#/Vol]Ordered By: Sandip Bunting on 07-02-2024 Neutrophils (Bld) [#/Vol]Neutrophils [#/volume] in Blood by Automated count 1.8-7.7FMercy Health – The Jewish HospitalNeutrophils [#/volume] in Blood by Automated countOrdered By: Sandip Bunting on 16-13-7283Ujuyooaurus (Bld) [#/Vol] 4.4 10*3/uLNormal1.8-7.7FMercy Health – The Jewish HospitalComment on above: Performed By: #### CBC, ESR, CRP ####[facility] [address] [place] [address] USANeutrophils/100 WBC Auto (Bld)Ordered By: Sandip Bunting on 11-25-2280Fodvwnlhczd/100 WBC (Bld)Automated neutrophil %.[facility] Brentwood HospitalNeutrophils/100 leukocytes in Blood by Automated count Ordered By: Sandip Bunting on 65-70-9399Zakeaexywee/100 WBC (Bld)66.3 %Normal. [facility] Brentwood HospitalComment on above:Performed By: #### CBC, ESR, CRP ####[facility] [address] [place], [place] [address] [facility] Nucleated erythrocytes [Presence] in Blood by Automated countOrdered By: Sandip Bunting on 39-78-4231Pzlhccuce RBC Auto Ql (Bld)Nucleated erythrocytes [Presence] in Blood by Automated count0-0.5FMercy Health – The Jewish Hospital Nucleated RBC Auto Ql (Bld)0.0 /100{WBC}0-0.5FMercy Health – The Jewish Hospital Platelet mean volume Auto (Bld) [Entitic vol]Ordered By: Sandip Bunting on 05-52-3788Eqrmdrej mean volume (Bld) [Entitic vol]Platelet mean volume [Entitic volume] in Blood by Automated count6.6-10.1FMercy Health – The Jewish Hospital Platelet mean volume [Entitic volume] in Blood by Automated countOrdered By: Sandip Bunting on 95-53-7017Tmfjkckr mean volume (Bld) [Entitic vol]7.7 fLNormal 6.6-10.1FMercy Health – The Jewish HospitalComment on above:Performed By: #### CBC, ESR, CRP ####[facility] [address] [place] [address] USAPlatelets Auto (Bld) [#/Vol]Ordered By: Sandip Bunting on 07-02-2024 Platelets (Bld) [#/Vol]Platelets [#/volume] in Blood by Automated awtqq440-484 [facility] Brentwood HospitalPlatelets [#/volume] in Blood by Automated countOrdered By: Sandip Bunting on 68-02-3622Doheysbau (Bld) [#/Vol]180 10*3/uL Wxvile687-507NwjbexwgoSuburban Community Hospital & Brentwood HospitalComment on above:Performed By: #### CBC, ESR, CRP ####[facility] [address] [place] [address] USARBC Auto (Bld) [#/Vol]Ordered By: Sandip Bunting on 00-60-2427UZL (Bld) [#/Vol]Erythrocytes [#/volume] in Blood by Automated countLow3.90-5.60 [facility] Brentwood HospitalWBC Auto (Bld) [#/Vol]Ordered By: Sandip Bunting on 82-38-0213JZA (Bld) [#/Vol]Leukocytes [#/volume] in Blood by Automated count4.1-10.5FMercy Health – The Jewish HospitalProvider Letteron [phone] Letter Tavo Mcintyre, [address], [address] [place] [address] Re: Tavo Slaterulett Date of Visit: 06/26/[address] Mcintyre, Thank you for your referral to my office. Attached you will find the most recent office visit note.Please call if you have any questions or concerns. Sincerely, Tye Pompa MD [address], [address] [place] [address] The following document(s) were included in the letter: June 26, 2024 15:49:54 EDT - (06/26/2024) Telehealth Office Visit NoteNormal [facility] NorthBasophils Auto (Bld) [#/Vol]Ordered By: Sandip Bunting on 92-34-8963Khmdwjffo (Bld) [#/Vol]Automated basophil count0.0-0.2 [facility] HospitalBasophils [#/volume] in Blood by Automated countOrdered By: Sandip Bunting on 59-38-2930Infyjrpho (Bld) [#/Vol]0.1 10*3/uL Normal0.0-0.2FMercy Health – The Jewish HospitalComment on above:Performed By: #### ESR, CBC, CRP ####[facility] [address] [place] [address] USABasophils/100 WBC Auto (Bld)Ordered By: Sandip Mirzating on 06-25-2024 Basophils/100 WBC (Bld)Automated basophil %.[facility] Basophils/100 leukocytes in Blood by Automated countOrdered By: Sandip Bunting on 05-64-0974Wapafwkyg/100 WBC (Bld)0.9 %Normal.[facility] Brentwood HospitalComment on above:Performed By: #### ESR, CBC, CRP ####[facility] [address] [place] [address] USAC reactive protein [Mass/volume] in Serum or PlasmaOrdered By: Sandip Bunting on 53-14-5033VSB [Mass/Vol]C reactive protein [Mass/volume] in Serum or PlasmaHigh0.0-0.5 [facility] HospitalCRP [Mass/Vol]6.5 mg/dLHigh0.0-0.5FMercy Health – The Jewish HospitalC-Reactive Proteinon 56-05-8935H-Reactive Protein6.5 mg/dLHigh0.0-0.5The Firsthealth Physician GroupComment on above:Result Comment: PERFORMED BY:[address] [place], [place] [phone] MEDICAL DIRECTORJAJA CATES M.D. Performed By: #### ESR, CBC, CRP ####[address] [address] USAComplete Blood Count Auto Diffon 76-94-1737Ycrq Corpuscular HGB Conc33.3 g/jPWhrlbr77.5-35.6The [facility] Physician Laird HospitalComment on above:Performed By: #### ESR, CBC, CRP ####[address] [address] USANRBC%0.1 /100{WBC}Normal0-0.5The [facility] Physician Laird HospitalComment on above:Performed By: #### ESR, CBC, CRP ####[address] [address] [place] Eosinophils Auto (Bld) [#/Vol]Ordered By: Sandip Bunting on 06-25-2024 Eosinophils (Bld) [#/Vol]Automated eosinophil count0.0-0.45[facility] HospitalEosinophils [#/volume] in Blood by Automated countOrdered By: Sandip Bunting on 75-13-0327Rzofcqodrpc (Bld) [#/Vol]0.3 10*3/uLNormal0.0-0.45 [facility] HospitalComment on above:Performed By: #### ESR, CBC, CRP ####[place] [address] [place] Eosinophils/100 WBC Auto (Bld)Ordered By: Sandip Bunting on 06-25-2024 Eosinophils/100 WBC (Bld)Automated eosinophil %.[facility] HospitalEosinophils/100 leukocytes in Blood by Automated countOrdered By: Sandip Bunting on 24-63-8975Tvpftrrmvdq/100 WBC (Bld)4.4 %Normal.[facility] Brentwood HospitalComment on above:Performed By: #### ESR, CBC, CRP ####[place] [address] [place] [address] USAErythrocyte Sedimentation Rateon 51-94-2692GBN (Bld) [Velocity]79 mm/hHigh0-19The Firsthealth Physician GroupComment on above:Result Comment: PERFORMED BY:[address] [place], [place] [phone] MEDICAL DIRECTORJAJA CATES M.D.Performed By: #### ESR, CBC, CRP ####[place] [address] [place] [address] [facility] Erythrocyte distribution width Auto (RBC) [Ratio]Ordered By: Sandip Bunting on 57-83-4218Ovnwixxajuk distribution width (RBC) [Ratio]Erythrocyte distribution width [Ratio] by Automated tnfcgDaba37.0-14.8[facility] Erythrocyte distribution width [Ratio] by Automated countOrdered By: Sandip Bunting on 97-71-5130Uzluxyqxxpe distribution width (RBC) [Ratio]16.7 %High 12.0-14.[address] [place], [place] [address]Comment on above:Performed By: #### ESR, CBC, CRP ####[place] [address] USAErythrocyte sedimentation rate by Photometric methodOrdered By: Sandip Bunting on 72-29-3942UGN Photometric method (Bld) [Velocity]Erythrocyte sedimentation rate by Photometric methodHigh0-19[facility] Brentwood HospitalESR Photometric method (Bld) [Velocity]79 mm/hrBraxton County Memorial Hospital0-19[facility] Brentwood HospitalErythrocytes [#/volume] in Blood by Automated countOrdered By: Sandip Bunting on 10-57-8271EER (Bld) [#/Vol]2.81 10*6/uLLow3.90-5.60[facility] HospitalComment on above:Performed By: #### ESR, CBC, CRP ####[address] [place] [address] [place] Hematocrit Auto (Bld) [Volume fraction]Ordered By: Sandip Bunting on 06-25-2024 Hematocrit (Bld) [Volume fraction]Hematocrit [Volume Fraction] of Blood by Automated dfffbDpr59.8-50.0[facility] Brentwood HospitalHematocrit [Volume Fraction] of Blood by Automated countOrdered By: Sandip Bunting on 06-25-2024 Hematocrit (Bld) [Volume fraction]24.4 %Low38.8-50.0[facility] Brentwood HospitalComment on above:Performed By: #### ESR, CBC, CRP ####[place] [address] USAHemoglobin [Mass/volume] in BloodOrdered By: Sandip Bunting on 11-64-5744Rivitrsmnu (Bld) [Mass/Vol] Hemoglobin [Mass/volume] in YukutEyk99.0-17.0[facility] Hemoglobin (Bld) [Mass/Vol]8.1 g/dLLow13.0-17.0[facility] Comment on above:Performed By: #### ESR, CBC, CRP ####[place] [address] USALeukocytes [#/volume] corrected for nucleated erythrocytes in Blood by Automated counOrdered By: Sandip Bunting on 36-24-9276YRB corrected for nucl RBC Auto (Bld) [#/Vol]Leukocytes [#/volume] corrected for nucleated erythrocytes in Blood by Automated coun4.1-10.5FMercy Health – The Jewish HospitalWBC corrected for nucl RBC Auto (Bld) [#/Vol]8.0 10*3/uL 4.1-10.5FMercy Health – The Jewish HospitalLeukocytes [#/volume] in Blood by Automated countOrdered By: Sandip Bunting on 49-45-7628NJM (Bld) [#/Vol]8.0 10*3/uLNormal4.1-10.5FMercy Health – The Jewish HospitalComment on above:Performed By: #### ESR, CBC, CRP ####[place] [address] USALymphocytes Auto (Bld) [#/Vol]Ordered By: Sandip Bunting on 82-72-7583Kalqcneikkp (Bld) [#/Vol]Lymphocytes [#/volume] in Blood by Automated count1.00-4.8[facility] Brentwood HospitalLymphocytes [#/volume] in Blood by Automated countOrdered By: Sandip Bunting on 05-70-6617Videxuocwkw (Bld) [#/Vol]1.4 10*3/uLNormal1.00-4.8[facility] Brentwood HospitalComment on above:Performed By: #### ESR, CBC, CRP ####[facility] [address] [place], [place] [address] USALymphocytes/100 WBC Auto (Bld)Ordered By: Sandip Bunting on 29-00-6895Fqvwxfscljv/100 WBC (Bld)Lymphocytes/100 leukocytes in Blood by Automated count.[facility] Brentwood HospitalLymphocytes/100 leukocytes in Blood by Automated countOrdered By: Sandip Bunting on 06-25-2024 Lymphocytes/100 WBC (Bld)17.6 %Normal.[facility] Brentwood HospitalComment on above:Performed By: #### ESR, CBC, CRP ####[facility] [address] [place], [place] [address] [facility] [place] Auto (RBC) [Entitic mass]Ordered By: Sandip Bunting on 29-57-2168FCE (RBC) [Entitic mass]MCH [Entitic mass] by Automated count27.5-35.2FGlenbeigh Hospital [Entitic mass] by Automated countOrdered By: Sandip Bunting on 44-92-1294LCG (RBC) [Entitic mass] 29.0 miTasmyo18.5-35.2FMercy Health – The Jewish HospitalComment on above: Performed By: #### ESR, CBC, CRP ####[place] [address] [facility] Auto (RBC) [Mass/Vol]Ordered By: Sandip Bunting on 10-14-6279MWMD (RBC) [Mass/Vol]MCHC [Mass/volume] by Automated count 32.5-35.6FMercy Health – The Jewish HospitalMCHC (RBC) [Mass/Vol]33.3 g/dL 32.5-35.6FMercy Health – The Jewish HospitalMCV Auto (RBC) [Entitic vol]Ordered By: Sandip Bunting on 47-79-2562MOE (RBC) [Entitic vol]MCV [Entitic volume] by Automated count83.5-101[facility] Brentwood HospitalMCV [Entitic volume] by Automated countOrdered By: Sandip Bunting on 31-15-7738QRB (RBC) [Entitic vol] 87.1 jEJnxznc99.5-101[facility] Brentwood HospitalComment on above:Performed By: #### ESR, CBC, CRP ####[facility] [address] [place] [address] USAMonocytes Auto (Bld) [#/Vol]Ordered By: Sandip Bunting on 71-06-9979Rlksnszjt (Bld) [#/Vol]Automated blood monocyte count 0.0-0.8[facility] Brentwood HospitalMonocytes [#/volume] in Blood by Automated countOrdered By: Sandip Bunting on 01-09-9172Daldwwgyt (Bld) [#/Vol] 0.6 10*3/uLNormal0.0-0.8[facility] Brentwood HospitalComment on above: Performed By: #### ESR, CBC, CRP ####[facility] [address] [place], [place] [address] USAMonocytes/100 WBC Auto (Bld)Ordered By: Sandip Bunting on 68-75-3658Flpszsdat/100 WBC (Bld)Automated monocyte %.[facility] Brentwood HospitalMonocytes/100 leukocytes in Blood by Automated count Ordered By: Sandip Bunting on 22-77-2440Jtvagnmqk/100 WBC (Bld)7.7 %Normal. [facility] Brentwood HospitalComment on above:Performed By: #### ESR, CBC, CRP ####[address] [address] [place] Neutrophils Auto (Bld) [#/Vol]Ordered By: Sandip Bunting on 06-25-2024 Neutrophils (Bld) [#/Vol]Neutrophils [#/volume] in Blood by Automated count 1.8-7.7FMercy Health – The Jewish HospitalNeutrophils [#/volume] in Blood by Automated countOrdered By: Sandip Bunsantiago on 35-54-3619Xlebwcdobaj (Bld) [#/Vol] 5.5 10*3/uLNormal1.8-7.7FMercy Health – The Jewish HospitalComment on above: Performed By: #### ESR, CBC, CRP ####[facility] [address] [place] [address] USANeutrophils/100 WBC Auto (Bld)Ordered By: Sandip Aguirre on 83-90-2294Rqszmynbmxr/100 WBC (Bld)Automated neutrophil %.[facility] Brentwood HospitalNeutrophils/100 leukocytes in Blood by Automated count Ordered By: Sandip Aguirre on 44-52-3511Cvwrxrhfras/100 WBC (Bld)69.4 %Normal. [facility] Brentwood HospitalComment on above:Performed By: #### ESR, CBC, CRP ####[facility] [address] [place] [address] [facility] Nucleated erythrocytes [Presence] in Blood by Automated countOrdered By: Sandip Aguirre on 50-91-0634Lpuwmyckq RBC Auto Ql (Bld)Nucleated erythrocytes [Presence] in Blood by Automated count0-0.5FMercy Health – The [facility] Hospital Nucleated RBC Auto Ql (Bld)0.1 /100{WBC}0-0.5FMercy Health – [facility] Hospital Platelet mean volume Auto (Bld) [Entitic vol]Ordered By: Sandip Bunting on 47-35-7000Azttsnzp mean volume (Bld) [Entitic vol]Platelet mean volume [Entitic volume] in Blood by Automated count6.6-10.1FMercy Health – The Jewish Hospital Platelet mean volume [Entitic volume] in Blood by Automated countOrdered By: Sandip Bunting on 09-30-0464Lcamauct mean volume (Bld) [Entitic vol]7.5 fLNormal 6.6-10.1FMercy Health – The Jewish HospitalComment on above:Performed By: #### ESR, CBC, CRP ####[facility] [place] [address] USAPlatelets Auto (Bld) [#/Vol]Ordered By: Sandip Bunting on 06-25-2024 Platelets (Bld) [#/Vol]Platelets [#/volume] in Blood by Automated wggdo985-815 [facility] Brentwood HospitalPlatelets [#/volume] in Blood by Automated countOrdered By: Sandip Bunting on 70-00-4563Oxxohhwle (Bld) [#/Vol]234 10*3/uL Bgmsnt286-473WtfctcaixSuburban Community Hospital & Brentwood HospitalComment on above:Performed By: #### ESR, CBC, CRP ####[place] [address] [place] [address] USARBC Auto (Bld) [#/Vol]Ordered By: Sandip Bunting on 70-66-8281VZK (Bld) [#/Vol]Erythrocytes [#/volume] in Blood by Automated countLow3.90-5.60 [facility] Brentwood HospitalWBC Auto (Bld) [#/Vol]Ordered By: Sandip Bunting on 73-44-6307BVS (Bld) [#/Vol]Leukocytes [#/volume] in Blood by Automated count4.1-10.5FMercy [facility] HospitalB[facility]ent[facility] Metabolic Panelon 56-90-6101Ppungfkzy GFR25.145 mL/MinNoAsheville Specialty Hospital Physician GroupComment on above:Performed By: #### CBC, CRP, BMP, ESR ####[address] [place] [id number] USABasophils Auto (Bld) [#/Vol]Ordered By: Sandip Bunting on 05-37-5425Rfzbpboed (Bld) [#/Vol]Automated basophil count 0.0-0.2FMercy Health – The Jewish HospitalBasophils [#/volume] in Blood by Automated countOrdered By: Sandip Bunting on 02-67-9218Eipxxyvsv (Bld) [#/Vol] 0.1 10*3/uLNormal0.0-0.2FMercy Health – The Jewish HospitalComment on above: Performed By: #### CBC, CRP, BMP, ESR ####[address] [address] USABasophils/100 WBC Auto (Bld)Ordered By: Sandip Aguirre on 42-99-1891Ipcbyyuzr/100 WBC (Bld)Automated basophil %.[facility] HospitalBasophils/100 leukocytes in Blood by Automated count Ordered By: Sandip Aguirre on 65-57-3655Zqgtqvmbb/100 WBC (Bld)0.6 %Normal. [facility] Brentwood HospitalComment on above:Performed By: #### CBC, CRP, BMP, ESR ####[address] [address] USAC reactive protein [Mass/volume] in Serum or PlasmaOrdered By: Sandip Aguirre on 57-49-5119RDZ [Mass/Vol]C reactive protein [Mass/volume] in Serum or Plasma High0.0-0.5FMercy Health – The Jewish HospitalCRP [Mass/Vol]19.0 mg/dLHigh0.0-0.5 [facility] HospitalC-Reactive Proteinon 87-65-4283E-Reactive Xusvckt96.0 mg/dLHigh0.0-0.5The Firsthealth Physician GroupComment on above:Result Comment: PERFORMED BY:[place] [address] [place], [place] [phone] MEDICAL DIRECTORJAJA CATES M.D. Performed By: #### CBC, CRP, BMP, ESR ####[address] [address] USACalcium [Mass/volume] in Serum or Plasma Ordered By: Tamar Cunha on 55-88-3234Atkfnlf [Mass/Vol]Calcium [Mass/volume] in Serum or Plasma8.6-10.3FMercy Health – The Jewish HospitalCalcium [Mass/Vol] 8.6 mg/dLNormal8.6-10.3FMercy Health – The Jewish HospitalComment on above: Performed By: #### CBC, CRP, BMP, ESR ####[address] [address] USACarbon dioxide, total [Moles/volume] in Serum or PlasmaOrdered By: Tamar Cunha on 51-12-6159UO7 [Moles/Vol]Carbon dioxide, total [Moles/volume] in Serum or Mxtthy05.0-31.0[facility] HospitalCO2 [Moles/Vol]22.2 mmol/EDjaowv81.0-31.0[facility] Comment on above:Performed By: #### CBC, CRP, BMP, ESR ####[address] [place] [address] USAChloride [Moles/volume] in Serum or PlasmaOrdered By: Tamar Cunha on 52-05-1066Sthpuklm [Moles/Vol] Chloride [Moles/volume] in Serum or YeimhoSol51-682EepormwdwSuburban Community Hospital & Brentwood HospitalChloride [Moles/Vol]97 mmol/GRqh56-755YffqukwqgSuburban Community Hospital & [facility] Comment on above:Performed By: #### CBC, CRP, BMP, ESR ####[address] [address] USAComplete Blood Count Auto Diff on 32-71-1232Dgfw Corpuscular HGB Conc32.8 g/iZBpumtv62.5-35.6The Firsthealth Physician GroupComment on above:Performed By: #### CBC, CRP, BMP, ESR ####[address] [address] USANRBC% 0.0 /100{WBC}Normal0-0.5The [facility] Physician Laird HospitalComment on above:Performed By: #### CBC, CRP, BMP, ESR ####[place] [id number] USACreatinine [Mass/volume] in Serum or PlasmaOrdered By: Tamar Cunha on 19-97-0749Sgfemhdmvf [Mass/Vol]Creatinine [Mass/volume] in Serum or PlasmaHigh0.70-1.30[facility] HospitalCreatinine [Mass/Vol]2.49 mg/dLHigh0.70-1.30[facility] Brentwood HospitalComment on above:Performed By: #### CBC, CRP, BMP, ESR ####[address] [place] [address] USAEosinophils Auto (Bld) [#/Vol]Ordered By: Sandip Bunting on 50-27-9922Aebolankeqv (Bld) [#/Vol]Automated eosinophil count0.0-0.45[facility]wood HospitalEosinophils [#/volume] in Blood by Automated countOrdered By: Sandip Bunting on 63-04-9430Dufrvrdldfc (Bld) [#/Vol]0.2 10*3/uLNormal0.0-0.45[facility]wood HospitalComment on above:Performed By: #### CBC, CRP, BMP, ESR ####[address] [address] USAEosinophils/100 WBC Auto (Bld)Ordered By: Sandip Bunting on 95-66-6242Vzlildzcixv/100 WBC (Bld)Automated eosinophil %. [facility] HospitalEosinophils/100 leukocytes in Blood by Automated countOrdered By: Sandip Bunting on 16-33-7138Qyptfygpqit/100 WBC (Bld) 1.9 %Normal.[facility] Brentwood HospitalComment on above:Performed By: #### CBC, CRP, BMP, ESR ####[address] [address] USAErythrocyte Sedimentation Rateon 56-96-8694NQT (Bld) [Velocity]105 mm/hHigh0-19The Firsthealth Physician GroupComment on above:Result Comment: PERFORMED BY:[address] [place], [place] [phone] MEDICAL DIRECTORJAJA CATES M.D. Performed By: #### CBC, CRP, BMP, ESR ####[address] [address] USAErythrocyte distribution width Auto (RBC) [Ratio]Ordered By: Sandip Bunting on 04-63-8032Cfwwwdrcwci distribution width (RBC) [Ratio]Erythrocyte distribution width [Ratio] by Automated countHigh 12.0-14.8[facility]wood HospitalErythrocyte distribution width [Ratio] by Automated countOrdered By: Sandip Aguirre on 92-96-8361Lkzyikgfdsa distribution width (RBC) [Ratio]16.6 %High12.0-14.8[facility] Brentwood HospitalComment on above:Performed By: #### CBC, CRP, BMP, ESR ####[facility] [address] [place] [address] USAErythrocyte sedimentation rate by Photometric methodOrdered By: Sandip Aguirre on 06-18-2024 ESR Photometric method (Bld) [Velocity]Erythrocyte sedimentation rate by Photometric methodBraxton County Memorial Hospital019[facility] Brentwood HospitalESR Photometric method (Bld) [Velocity]105 mm/hrBraxton County Memorial Hospital019[facility] Erythrocytes [#/volume] in Blood by Automated countOrdered By: Sandip Aguirre on 19-23-8748GET (Bld) [#/Vol]3.31 10*6/uLLow3.90-5.60[facility] Brentwood HospitalComment on above:Performed By: #### CBC, CRP, BMP, ESR ####[facility] [address] [place] [address] USAGlucose [Mass/volume] in Serum or PlasmaOrdered By: Tamar Cunha on 22-43-6944Fxgkurl [Mass/Vol] Glucose [Mass/volume] in Serum or BdgomfCfzi66-241QhjtejuhqSuburban Community Hospital & Brentwood HospitalComment on above:ADA recommended reference rangeRandom Glucose Reference Range is dependent on time and content of last meal. Glucose of more than 200 mg/dL in a nonstressed, ambulatory subject supports the diagnosisof Diabetes Mellitus.Glucose [Mass/Vol]105 mg/pFZseu31-983YntnecssnSuburban Community Hospital & [facility] Comment on above:ADA recommended reference rangeRandom [...] rangePerformed By: #### CBC, CRP, BMP, ESR ####[facility] [address] [place] [address] USAHematocrit Auto (Bld) [Volume fraction]Ordered By: Sandip Bunting on 86-46-7117Kpjzkrqvlm (Bld) [Volume fraction]Hematocrit [Volume Fraction] of Blood by Automated fldddAxa09.8-50.0 [facility] Brentwood HospitalHematocrit [Volume Fraction] of Blood by Automated countOrdered By: Sandip Bunting on 47-09-9375Iawybxsijx (Bld) [Volume fraction]29.4 %Low38.8-50.0[facility] Brentwood HospitalComment on above: Performed By: #### CBC, CRP, BMP, ESR ####[address] [address] [place] [address] USAHemoglobin [Mass/volume] in BloodOrdered By: Sandip Bunting on 81-35-2418Ioykbebrej (Bld) [Mass/Vol]Hemoglobin [Mass/volume] in CacpdZvk11.0-17.0[facility] Brentwood HospitalHemoglobin (Bld) [Mass/Vol] 9.6 g/dLLow13.0-17.0[facility] Brentwood HospitalComment on above:Performed By: #### CBC, CRP, BMP, ESR ####[place] [address] USALeukocytes [#/volume] corrected for nucleated erythrocytes in Blood by Automated counOrdered By: Sandip Bunting on 06-18-2024 WBC corrected for nucl RBC Auto (Bld) [#/Vol]Leukocytes [#/volume] corrected for nucleated erythrocytes in Blood by Automated counHigh4.1-10.5FMercy Health – The Jewish HospitalWBC corrected for nucl RBC Auto (Bld) [#/Vol]10.9 10*3/uLHigh 4.1-10.5FMercy Health – The Jewish HospitalLeukocytes [#/volume] in Blood by Automated countOrdered By: Sandip Bunting on 74-94-9185AXX (Bld) [#/Vol]10.9 10*3/uLHigh4.1-10.5FMercy Health – The Jewish HospitalComment on above:Performed By: #### CBC, CRP, BMP, ESR ####[facility] [place] [address] USALymphocytes Auto (Bld) [#/Vol]Ordered By: Sandip Bunting on 71-90-1370Xfuswslgujm (Bld) [#/Vol]Lymphocytes [#/volume] in Blood by Automated count1.00-4.8[facility] Brentwood HospitalLymphocytes [#/volume] in Blood by Automated countOrdered By: Sandip Bunting on 00-34-2809Oedxdsbwnqw (Bld) [#/Vol]1.2 10*3/uLNormal1.00-4.8[facility] HospitalComment on above:Performed By: #### CBC, CRP, BMP, ESR ####[place] [address] USALymphocytes/100 WBC Auto (Bld)Ordered By: Sandip Bunting on 69-12-1370Ymvdmiokxrg/100 WBC (Bld)Lymphocytes/100 leukocytes in Blood by Automated count.[facility] Lymphocytes/100 leukocytes in Blood by Automated countOrdered By: Sandip Bunting on 36-92-5258Nqarynapudx/100 WBC (Bld)10.9 %Normal.[facility] Brentwood HospitalComment on above:Performed By: #### CBC, CRP, BMP, ESR ####[place] [address] [facility] [place] (RBC) [Entitic mass]Ordered By: Sandip Bunting on 92-02-5379JOS (RBC) [Entitic mass] MCH [Entitic mass] by Automated count27.5-35.2FMercy Health – The Jewish Hospital MCH [Entitic mass] by Automated countOrdered By: Sandip Bunting on 36-48-3302QNO (RBC) [Entitic mass]29.1 yaKyjdzs83.5-35.2FMercy Health – The [facility] Hospital Comment on above:Performed By: #### CBC, CRP, BMP, ESR ####[place] [address] [facility] Auto (RBC) [Mass/Vol] Ordered By: Sandip Bunting on 52-40-1601IMID (RBC) [Mass/Vol]MCHC [Mass/volume] by Automated count32.5-35.6FGalion HospitalHC (RBC) [Mass/Vol]32.8 g/dL32.5-35.6FMercy Health – The Jewish HospitalMCV Auto (RBC) [Entitic vol]Ordered By: Sandip Bunting on 85-17-8265IUH (RBC) [Entitic vol]MCV [Entitic volume] by Automated count83.5-101Clinton Memorial HospitalV [Entitic volume] by Automated countOrdered By: Sandip Bunting on 97-71-4902EMI (RBC) [Entitic vol][address] [place], [place] [address]Comment on above:Performed By: #### CBC, CRP, BMP, ESR ####[facility] [address] [place] [address] USAMonocytes Auto (Bld) [#/Vol]Ordered By: Sandip Bunting on 42-27-3593Bnbmyadgj (Bld) [#/Vol]Automated blood monocyte count0.0-0.8[facility]wood HospitalMonocytes [#/volume] in Blood by Automated countOrdered By: Sandip Bunting on 20-81-9933Pxeydzqov (Bld) [#/Vol] 0.8 10*3/uLNormal0.0-0.8[facility] Brentwood HospitalComment on above: Performed By: #### CBC, CRP, BMP, ESR ####[place] [address] USAMonocytes/100 WBC Auto (Bld)Ordered By: Sandip Bunting on 64-77-2145Vflcmcwuf/100 WBC (Bld)Automated monocyte %.[facility]wood HospitalMonocytes/100 leukocytes in Blood by Automated count Ordered By: Sandip Bunting on 47-32-4538Yqkgjwsgw/100 WBC (Bld)7.0 %Normal. [facility] Brentwood HospitalComment on above:Performed By: #### CBC, CRP, BMP, ESR ####[place] [address] USANeutrophils Auto (Bld) [#/Vol]Ordered By: Sandip Bunting on 06-18-2024 Neutrophils (Bld) [#/Vol]Neutrophils [#/volume] in Blood by Automated countHigh 1.8-7.7FMercy Health – The Jewish HospitalNeutrophils [#/volume] in Blood by Automated countOrdered By: Sandip Bunting on 91-44-3293Evfgvxjhybn (Bld) [#/Vol] 8.7 10*3/uLHigh1.8-7.7FMercy Health – The Jewish HospitalComment on above: Performed By: #### CBC, CRP, BMP, ESR ####[facility] [address] [place] [address] USANeutrophils/100 WBC Auto (Bld)Ordered By: Sandip Bunting on 43-46-9673Aysbdwlptdb/100 WBC (Bld)Automated neutrophil %. [facility] Brentwood HospitalNeutrophils/100 leukocytes in Blood by Automated countOrdered By: Sandip Bunting on 18-63-8511Wbzccrbviku/100 WBC (Bld) 79.6 %Normal.[facility] Brentwood HospitalComment on above:Performed By: #### CBC, CRP, BMP, ESR ####[facility] [address] [place] [address] USANo Panel InformationOrdered By: Tamar Cunha on 15-98-6767Pwysqlqfw GFR (CKD-EPI)25.145 mL/[facility] Creatinine Clearance (ChemN/[facility] mL/[facility] Nucleated erythrocytes [Presence] in Blood by Automated countOrdered By: Sandip Bunting on 53-39-0275Zbuglrtma RBC Auto Ql (Bld)Nucleated erythrocytes [Presence] in Blood by Automated count0-0.5FMercy Health – [facility] Hospital Nucleated RBC Auto Ql (Bld)0.0 /100{WBC}0-0.5FMercy Health – [facility] Hospital Platelet mean volume Auto (Bld) [Entitic vol]Ordered By: Sandip Bunting on 58-22-6003Fxuzcntf mean volume (Bld) [Entitic vol]Platelet mean volume [Entitic volume] in Blood by Automated count6.6-10.1FMercy Health – The [facility] Hospital Platelet mean volume [Entitic volume] in Blood by Automated countOrdered By: Sandip Bunting on 74-21-8771Wcsqzbnt mean volume (Bld) [Entitic vol]7.8 fLNormal 6.6-10.1FMercy Health – The Jewish HospitalComment on above:Performed By: #### CBC, CRP, BMP, ESR ####[facility] [address] [place] [address] USAPlatelets Auto (Bld) [#/Vol]Ordered By: Sandip Bunting on 06-18-2024 Platelets (Bld) [#/Vol]Platelets [#/volume] in Blood by Automated ugqht466-836 [facility] Brentwood HospitalPlatelets [#/volume] in Blood by Automated countOrdered By: Sandip Bunting on 11-10-1621Tylovzmtp (Bld) [#/Vol]292 10*3/uL Rjxrvq118-014BpfxgpveuSuburban Community Hospital & Brentwood HospitalComment on above:Performed By: #### CBC, CRP, BMP, ESR ####[facility] [address] [place] [address] USAPotassium [Moles/volume] in Serum or PlasmaOrdered By: Tamar Cunha on 52-97-3937Oomopjwis [Moles/Vol]Potassium [Moles/volume] in Serum or Plasma3.5-5.1FMercy Health – The Jewish HospitalPotassium [Moles/Vol] 4.7 mmol/LNormal3.5-5.1FMercy Health – The Jewish HospitalComment on above: Performed By: #### CBC, CRP, BMP, ESR ####[facility] [address] [place] [address] USARBC Auto (Bld) [#/Vol]Ordered By: Sandip Bunsantiago on 98-76-6146UOG (Bld) [#/Vol]Erythrocytes [#/volume] in Blood by Automated countLow3.90-5.60St. Francis Hospitalerum or plasma anion gap determinationOrdered By: Tamar Cunha on 26-50-9669Eksyk gap [Moles/Vol]Serum or plasma anion gap determinationHigh6.0-15.0[facility] Brentwood HospitalAnion gap [Moles/Vol]16.5 mmol/LHigh6.0-15.0[facility]wood HospitalComment on above:Performed By: #### CBC, CRP, BMP, ESR ####[facility] [place] [address] USASodium [Moles/volume] in Serum or PlasmaOrdered By: Tamar Cunha on 73-11-4860Htrhch [Moles/Vol]Sodium [Moles/volume] in Serum or JgcypkBhw773-744EvkepvrfwSt. Francis Hospitalodium [Moles/Vol]131 mmol/IOmp290-797IanjqksnhSuburban Community Hospital & Brentwood HospitalComment on above:Performed By: #### CBC, CRP, BMP, ESR ####[facility] [address] [place] [address] USAUrea nitrogen [Mass/volume] in Serum or PlasmaOrdered By: Tamar Cunha on 57-00-1881Fznt nitrogen [Mass/Vol]Urea nitrogen [Mass/volume] in Serum or PlasmaHigh7-25 [facility] Brentwood HospitalUrea nitrogen [Mass/Vol]42 mg/dLHigh7-25 [facility] Brentwood HospitalComment on above:Performed By: #### CBC, CRP, BMP, ESR ####[facility] [address] [place] [address] USAWBC Auto (Bld) [#/Vol]Ordered By: Sandip Bunting on 27-22-7456KBC (Bld) [#/Vol]Leukocytes [#/volume] in Blood by Automated countHigh4.1-10.5FMercy Health – The Jewish HospitalBasophils Auto (Bld) [#/Vol]Ordered By: Sandip Bunting on 03-74-0488Flnlwvunf (Bld) [#/Vol]Automated basophil count0.0-0.2FMercy Health – The Jewish HospitalBasophils/100 WBC Auto (Bld)Ordered By: Sandip Bunting on 47-27-3773Ubevwxzvb/100 WBC (Bld)Automated basophil %.[facility] Brentwood HospitalComplete Blood Count Auto Diffon 08-34-4731Xdmzwfyfx (Bld) [#/Vol] 0.0 10*3/uLNormal0.0-0.2The Firsthealth Physician GroupComment on above:Result Comment: PERFORMED BY:[address] [place], [place] [phone] MEDICAL DIRECTORJAJA CATES M.D. Performed By: #### CBC ####[place] [address] USABasophils/100 WBC (Bld)0.5 %Normal.The Firsthealth Physician GroupComment on above:Performed By: #### CBC ####[place] [address] USAEosinophils (Bld) [#/Vol]0.2 10*3/uLNormal0.0-0.45The Firsthealth Physician GroupComment on above:Performed By: #### CBC ####[place] [address] USAEosinophils/100 WBC (Bld)2.2 %Normal.The Firsthealth Physician GroupComment on above:Performed By: #### CBC ####[place] [address] USAErythrocyte distribution width (RBC) [Ratio]16.6 % High12.0-14.8The Firsthealth Physician GroupComment on above:Performed By: #### CBC ####[place] [address] [place] Hematocrit (Bld) [Volume fraction]29.1 %Low38.8-50.0The Firsthealth Physician GroupComment on above:Performed By: #### CBC ####[place] [address] USAHemoglobin (Bld) [Mass/Vol]9.7 g/dLLow 13.0-17.0The Firsthealth Physician GroupComment on above:Performed By: #### CBC ####[place] [address] [place] Lymphocytes (Bld) [#/Vol]0.8 10*3/uLLow1.00-4.8[facility] Comment on above:Performed By: #### CBC ####[place] [address] USALymphocytes/100 WBC (Bld)9.5 %Normal.The Firsthealth Physician GroupComment on above:Performed By: #### CBC ####[address] (RBC) [Entitic mass]29.8 mxXnkrum36.5-35.2The Firsthealth Physician GroupComment on above: Performed By: #### CBC ####[address] (RBC) [Entitic vol]89.7 eSAjghwm40.5-101The Firsthealth Physician GroupComment on above:Performed By: #### CBC ####[place] [address] USAMean Corpuscular HGB Conc33.2 g/aADtallv96.5-35.6The Firsthealth Physician GroupComment on above: Performed By: #### CBC ####[place] [address] USAMonocytes (Bld) [#/Vol]0.6 10*3/uLNormal0.0-0.8The Firsthealth Physician GroupComment on above:Performed By: #### CBC ####[place] [address] USAMonocytes/100 WBC (Bld)7.4 %Normal.The Firsthealth Physician GroupComment on above:Performed By: #### CBC ####[place] [address] USANeutrophils (Bld) [#/Vol]7.0 10*3/uLNormal1.8-7.7The Firsthealth Physician GroupComment on above:Performed By: #### CBC ####[place] [address] USANeutrophils/100 WBC (Bld)80.4 %Normal. The Firsthealth Physician GroupComment on above:Performed By: #### CBC ####[place] [address] USANRBC% 0.0 /100{WBC}Normal0-0.5The Firsthealth Physician GroupComment on above:Performed By: #### CBC ####[place] [address] USAPlatelet mean volume (Bld) [Entitic vol]8.1 fLNormal6.6-10.1The Firsthealth Physician GroupComment on above:Performed By: #### CBC ####[place] [address] USAPlatelets (Bld) [#/Vol]202 10*3/fGSfobbd508-331Oak Firsthealth Physician GroupComment on above: Performed By: #### CBC ####[place] [address] USARBC (Bld) [#/Vol]3.24 10*6/uLLow3.90-5.60The First[facility] Physician GroupComment on above:Performed By: #### CBC ####[place] [address] USAWBC (Bld) [#/Vol]8.7 10*3/uLNormal4.1-10.5The First[facility] Physician GroupComment on above:Performed By: #### CBC ####[place] [address] USAEosinophils Auto (Bld) [#/Vol]Ordered By: Sanidp Bunting on 06-13-2024 Eosinophils (Bld) [#/Vol]Automated eosinophil count0.0-0.45[facility] Brentwood HospitalEosinophils/100 WBC Auto (Bld)Ordered By: Sandip Bunting on 48-91-0029Jzxacpxtcgb/100 WBC (Bld)Automated eosinophil %.[facility] Brentwood HospitalErythrocyte distribution width Auto (RBC) [Ratio]Ordered By: Sandip Bunting on 79-02-8205Wsescmhhgug distribution width (RBC) [Ratio] Erythrocyte distribution width [Ratio] by Automated fejexNqfz36.0-14.8[facility] Brentwood HospitalHematocrit Auto (Bld) [Volume fraction]Ordered By: Sandip Bunting on 47-72-7843Lajxistqsn (Bld) [Volume fraction]Hematocrit [Volume Fraction] of Blood by Automated jcaizFuo64.8-50.0[facility] Brentwood HospitalHemoglobin [Mass/volume] in BloodOrdered By: Sandip Bunting on 06-13-2024 Hemoglobin (Bld) [Mass/Vol]Hemoglobin [Mass/volume] in IjqvsMvu02.0-17.0 [facility] Brentwood HospitalLeukocytes [#/volume] corrected for nucleated erythrocytes in Blood by Automated counOrdered By: Sandip Bunting on 06-13-2024 WBC corrected for nucl RBC Auto (Bld) [#/Vol]Leukocytes [#/volume] corrected for nucleated erythrocytes in Blood by Automated coun4.1-10.5FMercy Health – The Jewish HospitalLymphocytes Auto (Bld) [#/Vol]Ordered By: Sandip Bunting on 24-12-5309Nipjzqnoksz (Bld) [#/Vol]Lymphocytes [#/volume] in Blood by Automated countLow1.00-4.8[facility] Brentwood HospitalLymphocytes/100 WBC Auto (Bld) Ordered By: Sandip Bunting on 11-63-6639Abayumedsom/100 WBC (Bld)Lymphocytes/100 leukocytes in Blood by Automated count.[facility] Brentwood HospitalMCH Auto (RBC) [Entitic mass]Ordered By: Sandip Bunting on 90-06-4993QFN (RBC) [Entitic mass]MCH [Entitic mass] by Automated count27.5-35.2FMercy Health – The Jewish HospitalMCHC Auto (RBC) [Mass/Vol]Ordered By: Sandip Bunting on 06-13-2024 MCHC (RBC) [Mass/Vol]MCHC [Mass/volume] by Automated count32.5-35.6FMercy Health – The Jewish HospitalMCV Auto (RBC) [Entitic vol]Ordered By: Sandip Bunting on 80-12-5690MYC (RBC) [Entitic vol]MCV [Entitic volume] by Automated count83.5-101 [facility] Brentwood HospitalMonocytes Auto (Bld) [#/Vol]Ordered By: Sandip Bunting on 20-72-1524Hfyxvjayz (Bld) [#/Vol]Automated blood monocyte count 0.0-0.8[facility] HospitalMonocytes/100 WBC Auto (Bld)Ordered By: Sandip Bunting on 40-14-0701Guhaechrj/100 WBC (Bld)Automated monocyte %. [facility] Brentwood HospitalNeutrophils Auto (Bld) [#/Vol]Ordered By: Sandip Bunting on 73-04-4057Teuoexqsvyf (Bld) [#/Vol]Neutrophils [#/volume] in Blood by Automated count1.8-7.7FMercy Health – The Jewish HospitalNeutrophils/100 WBC Auto (Bld)Ordered By: Sandip Bunting on 19-15-6891Dvizndulewj/100 WBC (Bld) Automated neutrophil %.[facility] Brentwood HospitalNucleated erythrocytes [Presence] in Blood by Automated countOrdered By: Sandip Bunting on 06-13-2024 Nucleated RBC Auto Ql (Bld)Nucleated erythrocytes [Presence] in Blood by Automated count0-0.5FMercy Health – The Jewish HospitalPlatelet mean volume Auto (Bld) [Entitic vol]Ordered By: Sandip Bunting on 43-09-4870Rjyluuqh mean volume (Bld) [Entitic vol]Platelet mean volume [Entitic volume] in Blood by Automated count6.6-10.1FMercy Health – The Jewish HospitalPlatelets Auto (Bld) [#/Vol] Ordered By: Sandip Bunting on 44-70-9759Zhrpgllpr (Bld) [#/Vol]Platelets [#/volume] in Blood by Automated getjs437-360MfcpqshleSuburban Community Hospital & [facility] Hospital RBC Auto (Bld) [#/Vol]Ordered By: Sandip Bunting on 59-43-0369NWI (Bld) [#/Vol] Erythrocytes [#/volume] in Blood by Automated countLow3.90-5.60[facility] HospitalWBC Auto (Bld) [#/Vol]Ordered By: Sandip Bunting on 14-21-2967IFK (Bld) [#/Vol]Leukocytes [#/volume] in Blood by Automated count 4.1-10.5FMercy Health – The Jewish HospitalAppearance of UrineOrdered By: Sandip Bunting on 87-02-7102Xslsnwkhbh (U)Urine appearanceAbnormalClearSuburban Community Hospital & Brentwood HospitalBacteria [Presence] in Urine by AutomatedOrdered By: Sandip Bunting on 65-37-2912Xpnfnnjb Auto Ql (U)Bacteria [Presence] in Urine by AutomatedNone [facility] HospitalBilirubin Test strip Ql (U) Ordered By: Sandip Bunting on 56-37-9882Tqbbvxtyy Ql (U)Bilirubin.total [Presence] in Urine by Test stripNegativeSuburban Community Hospital & Brentwood HospitalColor Auto (U)Ordered By: Sandip Bunting on 25-78-8874Daqng (U)Color of Urine by Auto YellowSuburban Community Hospital & [facility] HospitalDipstick and Microscopicon 06-12-2024 Appearance (U)TurbidCritically abnormalClearThe Firsthealth Physician GroupComment on above:Order Comment: Name Collection Type:: Collection Method Unknown Performed By: #### CUU, ADDONUAPLUS ####[facility] [facility], [id number] USABacteria,UrineRareNormalNone SeenBartow Regional Medical Center Physician GroupComment on above:Order Comment: Name Collection Type:: Collection Method UnknownPerformed By: #### CUU, ADDONUAPLUS ####[facility] [facility] centerluc[place], [place] USABilirubin,UrineNegativeNormal NegativeThe Firsthealth Physician GroupComment on above:Order Comment: Name Collection Type:: Collection Method UnknownPerformed By: #### CUU, ADDONUAPLUS ####[facility] Andrew[facility] centershel[place], [place] USAColor (U)YellowNormalYellowThe Firsthealth Physician GroupComment on above:Order Comment: Name Collection Type:: Collection Method UnknownPerformed By: #### CUU, ADDONUAPLUS ####[facility] [facility] [place] [address] USAGlucose Ql (U)NormalNormalNormalThe Firsthealth Physician GroupComment on above:Order Comment: Name Collection Type:: Collection Method UnknownPerformed By: #### CUU, ADDONUAPLUS ####[address] PO[address] USAHyaline Casts,UrineNoneNormal0-8The Firsthealth Physician GroupComment on above:Order Comment: Name Collection Type:: Collection Method UnknownResult Comment: PERFORMED BY:[place] [address] [place], [place] [phone] MEDICAL DIRECTORJAJA CATES M.D.Performed By: #### CUU, ADDONUAPLUS ####[address] USAKetones Ql (U)NegativeNormalNegativeBartow Regional Medical Center Physician GroupComment on above:Order Comment: Name Collection Type:: Collection Method UnknownPerformed By: #### MANDO, ADDONUAPLUS ####[address] [address] USALeukocyte esterase Test strip Ql (U)4+HighNegativeBartow Regional Medical Center Physician GroupComment on above:Order Comment: Name Collection Type:: Collection Method UnknownPerformed By: #### MANDO, ADDONUAPLUS ####[address] [id number] USANitrite,UrinePositiveHigh NegativeThe Firsthealth Physician GroupComment on above:Order Comment: Name Collection Type:: Collection Method UnknownPerformed By: #### CUU, ADDONUAPLUS ####[address] BB[address] USAOccult Blood,Urine2+HighNegativeBartow Regional Medical Center Physician GroupComment on above:Order Comment: Name Collection Type:: Collection Method UnknownResult Comment: PERFORMED BY:[place] [address] GOLDSTEINDaneAMEENASEATTLE, [place] [phone] MEDICAL DIRECTORJAJA CATES M.D. Performed By: #### MANDO ADDONUAPLUS ####[address], [place]I[address] USApH (U)8.0 [pH]Normal5.0-9.0The Firsthealth Physician GroupComment on above:Order Comment: Name Collection Type:: Collection Method UnknownPerformed By: #### CUU, ADDONUAPLUS ####[address] Andrewnov[facility] rowan medical centerlucianaSEATT[place], [place]GG[address] USAProtein (U) [Mass/Vol]70 mg/dLHigh NegativeThe Firsthealth Physician GroupComment on above:Order Comment: Name Collection Type:: Collection Method UnknownPerformed By: #### CUU, ADDONUAPLUS ####[address]lucianaSEATT[place], [place]HR[address] [place] RBC,Umljf11-29Qsiu7-4Lfk Firsthealth Physician GroupComment on above:Order Comment: Name Collection Type:: Collection Method UnknownPerformed By: #### CUU, ADDONUAPLUS ####[address] [address] USASpecificy [place],Urine1.854Ippnnf4.001-1.030The Firsthealth Physician GroupComment on above:Order Comment: Name Collection Type:: Collection Method UnknownPerformed By: #### CUU, ADDONUAPLUS ####[address] Andrewnovant health rowan medical centerlucianaSEATT[place], [place] USAUrobilinogen,UrineNormalNormalNormalThe Firsthealth Physician GroupComment on above:Order Comment: Name Collection Type:: Collection Method UnknownPerformed By: #### CUU, ADDONUAPLUS ####[address] Andrewnovant health rowan medical centerlucianaSEATT[place], [place]DE[address] USAWBC CLUMP, UrineMany HighNone SeenBartow Regional Medical Center Physician GroupComment on above:Order Comment: Name Collection Type:: Collection Method UnknownPerformed By: #### CUU, ADDONUAPLUS ####[address] Andrewnovant health rowan medical centerlucianaSEATTLE, [place]XV[address] [place] WBC,UrineInnumerableHigh0-4The Firsthealth Physician GroupComment on above:Order Comment: Name Collection Type:: Collection Method UnknownPerformed By: #### CUU, ADDONUAPLUS ####[facility] [address] [place] [address] USAEpithelial cells.squamous [#/area] in Urine sediment by Automated count Ordered By: Sandip Bunting on 51-95-3375Rcisjreqhw cells.squamous Auto (Urine sed) [#/Area]Epithelial cells.squamous [#/area] in Urine sediment by Automated countSuburban Community Hospital & Brentwood HospitalErythrocytes [#/area] in Urine sediment by Automated countOrdered By: Sandip Bunting on 63-18-5365JLI Auto (Urine sed) [#/Area]Erythrocytes [#/area] in Urine sediment by Automated countHigh0-4 [facility] & [facility] HospitalGlucose [Mass/volume] in Urine by Test strip Ordered By: Sandip Bunting on 54-83-9855Cseqhur Test strip (U) [Mass/Vol]Glucose [Mass/volume] in Urine by Test stripWayne Hospital Hemoglobin Test strip Ql (U)Ordered By: Sandip Bunting on 96-34-2202Ukrereousn Ql (U)Hemoglobin [Presence] in Urine by Test stripMercy HealthHyaline casts [#/area] in Urine sediment by Automated count Ordered By: Sandip Bunting on 60-66-3152Trwcbav casts Auto (Urine sed) [#/Area] Hyaline casts [#/area] in Urine sediment by Automated count0-8[facility] & [facility] HospitalKetones Test strip Ql (U)Ordered By: Sandip Bunting on 06-12-2024 Ketones Ql (U)Ketones [Presence] in Urine by Test stripNegTrinity Health System Twin City Medical CenterLeukocyte clumps [Presence] in Urine by AutomatedOrdered By: Sandip Bunting on 45-98-5929Lwsxoflot clumps Auto Ql (U)Leukocyte clumps [Presence] in Urine by AutomatedCabell Huntington Hospitale [facility] Leukocyte esterase [Presence] in Urine by Test stripOrdered By: Sandip Bunting on 65-35-5526Chfyzpjrw esterase Test strip Ql (U)Leukocyte esterase [Presence] in Urine by Test stripMercy HealthLeukocytes [#/area] in Urine sediment by Automated countOrdered By: Sandip Bunting on 07-41-0325WOA Auto (Urine sed) [#/Area]Leukocytes [#/area] in Urine sediment by Automated countHigh0-4FMercy Health – The Jewish HospitalNitrite Test strip Ql (U) Ordered By: Sandip Bunting on 02-47-5688Ummamjw Ql (U)Nitrite [Presence] in Urine by Test stripHighNegTrinity Health System Twin City Medical CenterProtein Test strip (U) [Mass/Vol]Ordered By: Sandip Bunting on 10-48-7739Gvjiida (U) [Mass/Vol]Protein [Mass/volume] in Urine by Test stripHighNegOhioHealth Southeastern Medical Centerpecific gravity Test strip (U) [Rel density]Ordered By: Sandip Bunting on 09-83-9546Psqglyei gravity (U) [Rel density]Specific gravity of Urine by Test strip1.001-1.030[facility] & [facility] HospitalUrine Culture on 85-00-5356Spojdyhy identified Cx Nom (U)NormalThe Firsthealth Physician Group Comment on above:Performed By: #### CUU, ADDEMERITAUAPLUS ####[facility] StreetUrine cultureOrdered By: Sandip Bunting on 23-01-7944Klqmjgon identified Cx Nom (U)AbnormalSuburban Community Hospital & Brentwood HospitalBacteria identified Cx Nom (U)AbnormalSuburban Community Hospital & Brentwood HospitalUrine cultureAbnoCincinnati Children's Hospital Medical CenterUrine culture AbnormalSuburban Community Hospital & Brentwood HospitalUrobilinogen Test strip (U) [Mass/Vol] Ordered By: Sandip Bunting on 74-83-3696Icilafrgnwpv (U) [Mass/Vol]Urobilinogen [Mass/volume] in Urine by Test stripNoCincinnati Children's Hospital Medical CenterpH Test strip (U)Ordered By: Sandip Bunting on 09-63-0095kH (U)pH of Urine by Test strip5.0-9.0[facility] HospitalBasophils Auto (Bld) [#/Vol]Ordered By: Sandip Bunting on 35-30-5662Ulwappocw (Bld) [#/Vol]Automated basophil count 0.0-0.2FMercy Health – The Jewish HospitalBasophils/100 WBC Auto (Bld)Ordered By: Sandip Bunting on 86-39-6740Ndvlicmpq/100 WBC (Bld)Automated basophil %. [facility] & [facility] HospitalC reactive protein [Mass/volume] in Serum or PlasmaOrdered By: Sandip Bunting on 70-20-7806FBF [Mass/Vol]C reactive protein [Mass/volume] in Serum or PlasmaHigh0.0-0.5FMercy Health – The Jewish HospitalC- Reactive Proteinon 12-21-3530Y-Reactive Gyqhxsp15.3 mg/dLHigh0.0-0.5The Firsthealth Physician GroupComment on above:Result Comment: PERFORMED BY:[address] [place], [place] [phone] MEDICAL DIRECTORJAJA CATES M.D.Performed By: #### CRP, CBC, ESR ####[address] [address] [facility] Complete Blood Count Auto Diffon 22-58-6507Xmfqollku (Bld) [#/Vol]0.0 10*3/uL Normal0.0-0.2The [facility] Physician Laird HospitalComment on above:Performed By: #### CRP, CBC, ESR ####[address] [address] USABasophils/100 WBC (Bld)0.3 %Normal.The Firsthealth Physician GroupComment on above:Performed By: #### CRP, CBC, ESR ####[address] [address] USAEosinophils (Bld) [#/Vol]0.1 10*3/uL Normal0.0-0.45The [facility] Physician Laird HospitalComment on above:Performed By: #### CRP, CBC, ESR ####[address] [address] USAEosinophils/100 WBC (Bld)0.6 %Normal.The [facility] Comment on above:Performed By: #### CRP, CBC, ESR ####[address] [address] USAErythrocyte distribution width (RBC) [Ratio]16.3 %High12.0-14.8The Firsthealth Physician GroupComment on above: Performed By: #### CRP, CBC, ESR ####[place] [address] USAHematocrit (Bld) [Volume fraction]26.9 %Low38.8-50.0 The Firsthealth Physician GroupComment on above:Performed By: #### CRP, CBC, ESR ####[place] [address] [facility] Hemoglobin (Bld) [Mass/Vol]8.8 g/dLLow13.0-17.0The [facility] Comment on above:Performed By: #### CRP, CBC, ESR ####[place] [address] USALymphocytes (Bld) [#/Vol]1.7 10*3/uL Normal1.00-4.8The Firsthealth Physician GroupComment on above:Performed By: #### CRP, CBC, ESR ####[place] [address] USALymphocytes/100 WBC (Bld)13.8 %Normal.The [facility] Comment on above:Performed By: #### CRP, CBC, ESR ####[address] [address] USAMCH (RBC) [Entitic mass]29.1 pgNormal 27.5-35.2The Firsthealth Physician GroupComment on above:Performed By: #### CRP, CBC, ESR ####[address] [address] USAMCV (RBC) [Entitic vol]88.8 vYWwgezf13.5-101The [facility] Comment on above:Performed By: #### CRP, CBC, ESR ####[place] [address] USAMean Corpuscular HGB Conc32.8 g/dL Fbaxol95.5-35.6The Firsthealth Physician GroupComment on above:Performed By: #### CRP, CBC, ESR ####[place] [address] [place] [address] USAMonocytes (Bld) [#/Vol]1.1 10*3/uLHigh0.0-0.8The Firsthealth Physician GroupComment on above:Performed By: #### CRP, CBC, ESR ####[address] [address] USAMonocytes/100 WBC (Bld)9.1 % Normal.The Firsthealth Physician GroupComment on above:Performed By: #### CRP, CBC, ESR ####[address] [address] USANeutrophils (Bld) [#/Vol]9.1 10*3/uLHigh1.8-7.7The [facility] Comment on above:Performed By: #### CRP, CBC, ESR ####[address] [address] USANeutrophils/100 WBC (Bld)76.2 %Normal .The Firsthealth Physician GroupComment on above:Performed By: #### CRP, CBC, ESR ####[address] [address] USANRBC% 0.0 /100{WBC}Normal0-0.5The Firsthealth Physician GroupComment on above:Performed By: #### CRP, CBC, ESR ####[address] [address] USAPlatelet mean volume (Bld) [Entitic vol]8.0 fLNormal 6.6-10.1The Firsthealth Physician GroupComment on above:Performed By: #### CRP, CBC, ESR ####[address] [address] USAPlatelets (Bld) [#/Vol]214 10*3/xNKnqwcm284-566Abj [facility] Comment on above:Performed By: #### CRP, CBC, ESR ####[address] [address] USARBC (Bld) [#/Vol]3.03 10*6/uLLow 3.90-5.60The Firsthealth Physician GroupComment on above:Performed By: #### CRP, CBC, ESR ####[place] [place] [address] USAWBC (Bld) [#/Vol]12.0 10*3/uLHigh4.1-10.5The Firsthealth Physician GroupComment on above:Performed By: #### CRP, CBC, ESR ####[address] [address] USAEosinophils Auto (Bld) [#/Vol]Ordered By: Sandip Bunting on 91-04-8730Sqpctxiazns (Bld) [#/Vol]Automated eosinophil count0.0-0.45[facility] HospitalEosinophils/100 WBC Auto (Bld) Ordered By: Sandip Bunting on 72-67-0445Kpndgmgqmxk/100 WBC (Bld)Automated eosinophil %.[facility] HospitalErythrocyte Sedimentation Rateon 63-35-2917OHH (Bld) [Velocity]97 mm/hHigh0-19The [facility] Comment on above:Result Comment: PERFORMED BY:[address] [place], [place] [phone] MEDICAL DIRECTORJAJA CATES M.D.Performed By: #### CRP, CBC, ESR ####[address] [address] [facility] Erythrocyte distribution width Auto (RBC) [Ratio]Ordered By: Sandip Bunting on 62-32-4389Ulqxjswbiud distribution width (RBC) [Ratio]Erythrocyte distribution width [Ratio] by Automated xzxopXcaa16.0-14.8[facility] Erythrocyte sedimentation rate by Photometric methodOrdered By: Sandip Bunting on 33-96-9561AQV Photometric method (Bld) [Velocity]Erythrocyte sedimentation rate by Photometric methodHigh0-19[facility] HospitalHematocrit Auto (Bld) [Volume fraction]Ordered By: Sandip Bunting on 19-89-5186Jhvjdwzotp (Bld) [Volume fraction]Hematocrit [Volume Fraction] of Blood by Automated count Low38.8-50.0[facility] HospitalHemoglobin [Mass/volume] in Blood Ordered By: Sandip Bunting on 77-23-6005Fifbhmomkb (Bld) [Mass/Vol]Hemoglobin [Mass/volume] in EfybnWgk59.0-17.0[facility] HospitalLeukocytes [#/volume] corrected for nucleated erythrocytes in Blood by Automated coun Ordered By: Sandip Bunting on 34-63-5969AYY corrected for nucl RBC Auto (Bld) [#/Vol]Leukocytes [#/volume] corrected for nucleated erythrocytes in Blood by Automated counHigh4.1-10.5FMercy Health – The Jewish HospitalLymphocytes Auto (Bld) [#/Vol]Ordered By: Sandip Bunting on 64-89-0603Ivhvzmaodpi (Bld) [#/Vol] Lymphocytes [#/volume] in Blood by Automated count1.00-4.8[facility] HospitalLymphocytes/100 WBC Auto (Bld)Ordered By: Sandip Bunting on 64-51-5023Aacsrklwjnm/100 WBC (Bld)Lymphocytes/100 leukocytes in Blood by Automated count.[facility] & [facility] HospitalMCH Auto (RBC) [Entitic mass] Ordered By: Sandip Bunting on 48-44-0705NBX (RBC) [Entitic mass]MCH [Entitic mass] by Automated count27.5-35.2FMercy Health – The Jewish HospitalMCHC Auto (RBC) [Mass/Vol]Ordered By: Sandip Bunting on 01-75-6207POBM (RBC) [Mass/Vol] MCHC [Mass/volume] by Automated count32.5-35.6FMercy Health – The Jewish Hospital MCV Auto (RBC) [Entitic vol]Ordered By: Sandip Bunting on 21-90-3563KKZ (RBC) [Entitic vol]MCV [Entitic volume] by Automated count83.5-101[facility] HospitalMonocytes Auto (Bld) [#/Vol]Ordered By: Sandip Bunting on 22-11-6220Raeknnabd (Bld) [#/Vol]Automated blood monocyte countHigh0.0-0.8 [facility] HospitalMonocytes/100 WBC Auto (Bld)Ordered By: Sandip Aguirre on 28-09-3788Fllpiepok/100 WBC (Bld)Automated monocyte %.[facility] HospitalNeutrophils Auto (Bld) [#/Vol]Ordered By: Sandip Bunting on 30-27-8709Lbwqerceykt (Bld) [#/Vol]Neutrophils [#/volume] in Blood by Automated countHigh1.8-7.7FMercy Health – The Jewish HospitalNeutrophils/100 WBC Auto (Bld)Ordered By: Sandip Aguirre on 78-37-0734Ajfjykrytvg/100 WBC (Bld) Automated neutrophil %.[facility] & [facility] HospitalNucleated erythrocytes [Presence] in Blood by Automated countOrdered By: Sandip Aguirre on 06-11-2024 Nucleated RBC Auto Ql (Bld)Nucleated erythrocytes [Presence] in Blood by Automated count0-0.5FMercy Health – The Jewish HospitalPlatelet mean volume Auto (Bld) [Entitic vol]Ordered By: Sandip Aguirre on 99-41-8963Dylimlbd mean volume (Bld) [Entitic vol]Platelet mean volume [Entitic volume] in Blood by Automated count6.6-10.1FMercy Health – The Jewish HospitalPlatelets Auto (Bld) [#/Vol] Ordered By: Sandip Mirzating on 66-41-6272Atxvpkgvr (Bld) [#/Vol]Platelets [#/volume] in Blood by Automated gakso223-512HtbhuebgdSuburban Community Hospital & [facility] RBC Auto (Bld) [#/Vol]Ordered By: Sandip Mirzating on 33-41-8519TOK (Bld) [#/Vol] Erythrocytes [#/volume] in Blood by Automated countLow3.90-5.60[facility] HospitalWBC Auto (Bld) [#/Vol]Ordered By: Sandip Bunting on 39-11-4311FZV (Bld) [#/Vol]Leukocytes [#/volume] in Blood by Automated countHigh 4.1-10.5FMercy Health – The Jewish HospitalInfectious Disease Office/Clinic Noteon 72-75-1966Vpxfwsusrt Disease Office/Clinic NoteAssessment/Plan 1. Surgical wound dehiscence [...] has had no fevers or chills. This story writer did talk with patient he is [...] the andre [1] he had surgery at [facility] in [place].Postoperatively gained a lot of fluid weight. Also has catheter for urinary retention. Has chronic lymphedema uses pumps at home. Admitted to [place] had MRI that showed fluid collection. History ofA-fib. Surgery was not done there due to need for cardiology services. Transferred to [facility] where he connected with cardiology. Actually [...] to witness patient stand with assist. This story writer was able to visualize back incision [...] (02/21/2024) Lumbar Wound Irri (more content not included)...[facility] HealthProvider Letteron [phone] Letter Re: Tavo Wallis Carson Date of Visit: 06/07/2024 13:30:[address] Mcintyre, In regards to our mutual patient Vaughn Tavo Byrd. Attached you will find the most recent office visit note. Please call if you have any questions or concerns. Sincerely, Tamar Cunha APRN-C [facility] [address], [address] [place] [address] The following document(s) were included in the letter: June 07, 2024 14:05:12 EDT - (06/07/2024) Infectious Disease Office Visit Note [facility] HealthBasic Metabolic Panelon 52-63-9970Gnxvh gap [Moles/Vol]14.1 mmol/LNormal6.0-15.0The Firsthealth Physician GroupComment on above:Order Comment: BMP ADD ON PER *Guerline SIZING MACHINE TENDER-BEAN VINER, Tamar Luis M* AT INFECTIOUS DISEASE AND TRAVEL MEDICINE. FAXED ORDER ASKING TO ADD ON TO BLOOD DRAWN EARLIER TODAY.Performed By: #### CRP, BMP, CBC, ESR ####[facility] [id number] [place] [address] USACalcium [Mass/Vol]9.0 mg/dL Normal8.6-10.3The Firsthealth Physician GroupComment on above:Order Comment: BMP ADD ON PER *Guerline SIZING MACHINE TENDER-BEAN VINER, Tamar Luis M* AT INFECTIOUS DISEASE AND TRAVEL MEDICINE. FAXED ORDER ASKING TO ADD ON TO BLOOD DRAWN EARLIER TODAY.Performed By: #### CRP, BMP, CBC, ESR ####[facility] [address] [place] [address] USAChloride [Moles/Vol]100 mmol/ATciikz64-833Qvq Firsthealth Physician GroupComment on above:Order Comment: BMP ADD ON PER *Guerline SIZING MACHINE TENDER-BEAN VINER, Tamar Luis M* AT INFECTIOUS DISEASE AND TRAVEL MEDICINE. FAXED ORDER ASKING TO ADD ON TO BLOOD DRAWN EARLIER TODAY.Performed By: #### CRP, BMP, CBC, ESR ####[facility] [place] [address] USACO2 [Moles/Vol]28.8 mmol/NEnwxal90.0-31.0The Firsthealth Physician GroupComment on above:Order Comment: BMP ADD ON PER *Guerline SIZING MACHINE TENDER-BEAN VINER, Tamar Luis M* AT INFECTIOUS DISEASE AND TRAVEL MEDICINE. FAXED ORDER ASKING TO ADD ON TO BLOOD DRAWN EARLIER TODAY.Performed By: #### CRP, BMP, CBC, ESR ####[place] [address] [place] [address] USACreatinine [Mass/Vol] 1.16 mg/dLNormal0.70-1.30The Firsthealth Physician GroupComment on above:Order Comment: BMP ADD ON PER *Guerline SIZING MACHINE TENDER-BEAN VINER, Tamar Luis M* AT INFECTIOUS DISEASE AND TRAVEL MEDICINE. FAXED ORDER ASKING TO ADD ON TO BLOOD DRAWN EARLIER TODAY. Performed By: #### CRP, BMP, CBC, ESR ####[place] [address] [place] [address] USAGFR/1.73 sq M.predicted MDRD (S/P/Bld) [Vol rate/Area]mL/min/{1.73_m2}NormalThe Firsthealth Physician GroupComment on above: Order Comment: BMP ADD ON PER *Guerline SIZING MACHINE TENDER-BEAN VINER, Tamar Luis M* AT INFECTIOUS DISEASE AND TRAVEL MEDICINE. FAXED ORDER ASKING TO ADD ON TO BLOOD DRAWN EARLIER TODAY.Performed By: #### CRP, BMP, CBC, ESR ####[facility] [place] [address] USAGlucose [Mass/Vol]93 mg/tGUuozck57-773 The Firsthealth Physician GroupComment on above:Order Comment: BMP ADD ON PER *Guerline SIZING MACHINE TENDER-BEAN VINER, Tamar Luis M* AT INFECTIOUS DISEASE AND TRAVEL MEDICINE. FAXED ORDER ASKING TO ADD ON TO BLOOD DRAWN EARLIER TODAY.Result Comment: Random Glucose Reference Range is dependent on time and content of last meal. Glucose of more than 200 mg/dL in a nonstressed, ambulatory subject supports the diagnosis of Diabetes Mellitus. ADA recommended reference rangePerformed By: #### CRP, BMP, CBC, ESR ####[place] [address] [place] [address] USAPotassium [Moles/Vol]3.9 mmol/LNormal3.5-5.1The Firsthealth Physician GroupComment on above:Order Comment: BMP ADD ON PER *Guerline SIZING MACHINE TENDER-BEAN VINER, Tamar Luis M* AT INFECTIOUS DISEASE AND TRAVEL MEDICINE. FAXED ORDER ASKING TO ADD ON TO BLOOD DRAWN EARLIER TODAY.Performed By: #### CRP, BMP, CBC, ESR ####[address] [address] USASodium [Moles/Vol]139 mmol/LOpcgqn879-499Sza Firsthealth Physician GroupComment on above:Order Comment: BMP ADD ON PER *Guerline SIZING MACHINE TENDER-BEAN VINER, Tamar Luis M* AT INFECTIOUS DISEASE AND TRAVEL MEDICINE. FAXED ORDER ASKING TO ADD ON TO BLOOD DRAWN EARLIER TODAY.Performed By: #### CRP, BMP, CBC, ESR ####[address] [address] USAUrea nitrogen [Mass/Vol]19 mg/dLNormal7-25The Firsthealth Physician GroupComment on above:Order Comment: BMP ADD ON PER *Guerline SIZING MACHINE TENDER-BEAN VINER, Tamar Luis M* AT INFECTIOUS DISEASE AND TRAVEL MEDICINE. FAXED ORDER ASKING TO ADD ON TO BLOOD DRAWN EARLIER TODAY. Performed By: #### CRP, BMP, CBC, ESR ####[address] [address] USABasophils Auto (Bld) [#/Vol]Ordered By: Sandip Bunsantiago on 05-34-1929Fhnashtno (Bld) [#/Vol]Automated basophil count0.0-0.2 [facility] HospitalBasophils/100 WBC Auto (Bld)Ordered By: Sandip Bunting on 80-02-1838Nvtueconj/100 WBC (Bld)Automated basophil %.[facility] & [facility] HospitalC reactive protein [Mass/volume] in Serum or Plasma Ordered By: Sandip Aguirre on 74-73-8085AGY [Mass/Vol]C reactive protein [Mass/volume] in Serum or PlasmaHigh0.0-0.5FMercy Health – The Jewish HospitalC- Reactive Proteinon 28-75-2719G-Reactive Protein7.7 mg/dLHigh0.0-0.5The Firsthealth Physician GroupComment on above:Result Comment: PERFORMED BY:[facility] [place], [place] [phone] MEDICAL DIRECTORJAJA CATES M.D.Performed By: #### CRP, BMP, CBC, ESR ####[facility] [address] [place] [address] USAOrder Comment: BMP ADD ON PER *Guerline BELLA, Tamar Asencio* AT INFECTIOUS DISEASE AND TRAVEL MEDICINE. FAXED ORDER ASKING TO ADD ON TO BLOOD DRAWN EARLIER TODAY. Calcium [Mass/volume] in Serum or PlasmaOrdered By: Sandip Bunting on 06-06-2024 Calcium [Mass/Vol]Calcium [Mass/volume] in Serum or Plasma8.6-10.3FMercy Health – The Jewish HospitalCarbon dioxide, total [Moles/volume] in Serum or Plasma Ordered By: Sandip Bunting on 52-43-8243BY3 [Moles/Vol]Carbon dioxide, total [Moles/volume] in Serum or Ijyaeo25.0-31.0[facility] Chloride [Moles/volume] in Serum or PlasmaOrdered By: Sandip Bunting on 27-99-5111Frqkrrkv [Moles/Vol]Chloride [Moles/volume] in Serum or Nnluwv39-670 [facility] HospitalComplete Blood Count Auto Diffon 06-06-2024 Basophils (Bld) [#/Vol]0.1 10*3/uLNormal0.0-0.2The [facility] Comment on above:Performed By: #### CRP, BMP, CBC, ESR ####[facility] [id number] [place] [address] USABasophils/100 WBC (Bld)0.6 % Normal.The Firsthealth Physician GroupComment on above:Performed By: #### CRP, BMP, CBC, ESR ####[place] [address] USAEosinophils (Bld) [#/Vol]0.6 10*3/uLHigh0.0-0.45The Firsthealth Physician GroupComment on above:Performed By: #### CRP, BMP, CBC, ESR ####[place] [address] USAEosinophils/100 WBC (Bld)6.2 %Normal.The Firsthealth Physician GroupComment on above:Performed By: #### CRP, BMP, CBC, ESR ####[place] [address] USAErythrocyte distribution width (RBC) [Ratio]16.3 % High12.0-14.8The Firsthealth Physician GroupComment on above:Performed By: #### CRP, BMP, CBC, ESR ####[place] [address] USAHematocrit (Bld) [Volume fraction]28.8 %Low38.8-50.0The Firsthealth Physician GroupComment on above:Performed By: #### CRP, BMP, CBC, ESR ####[address] Hemoglobin (Bld) [Mass/Vol]9.6 g/dLLow13.0-17.0[facility] Comment on above:Performed By: #### CRP, BMP, CBC, ESR ####[place] [address] USALymphocytes (Bld) [#/Vol]1.7 10*3/uLNormal1.00-4.8The Firsthealth Physician GroupComment on above:Performed By: #### CRP, BMP, CBC, ESR ####[place] [id number] USALymphocytes/100 WBC (Bld)19.1 %Normal.The Firsthealth Physician GroupComment on above:Performed By: #### CRP, BMP, CBC, ESR ####[place] [id number] [facility] MEXICOMCH (RBC) [Entitic mass]30.1 qkUngivp30.5-35.2The Firsthealth Physician GroupComment on above:Performed By: #### CRP, BMP, CBC, ESR ####[address] (RBC) [Entitic vol]90.1 fLNormal 83.5-101The Firsthealth Physician GroupComment on above:Performed By: #### CRP, BMP, CBC, ESR ####[place] [address] USAMean Corpuscular HGB Conc33.4 g/mIDkdauj15.5-35.6The Firsthealth Physician GroupComment on above:Performed By: #### CRP, BMP, CBC, ESR ####[place] [address] [place] Monocytes (Bld) [#/Vol]0.6 10*3/uLNormal0.0-0.8[facility] Comment on above:Performed By: #### CRP, BMP, CBC, ESR ####[place] [address] USAMonocytes/100 WBC (Bld)6.1 % Normal.The Firsthealth Physician GroupComment on above:Performed By: #### CRP, BMP, CBC, ESR ####[place] [address] USANeutrophils (Bld) [#/Vol]6.2 10*3/uLNormal1.8-7.7The Firsthealth Physician GroupComment on above:Performed By: #### CRP, BMP, CBC, ESR ####[place] [address] [place] Neutrophils/100 WBC (Bld)68.0 %Normal.The Firsthealth Physician GroupComment on above:Performed By: #### CRP, BMP, CBC, ESR ####[place] [address] USANRBC%0.1 /100{WBC}Normal0-0.5The Firsthealth Physician GroupComment on above:Performed By: #### CRP, BMP, CBC, ESR ####[address] Platelet mean volume (Bld) [Entitic vol]7.9 fLNormal6.6-10.1The Firsthealth Physician GroupComment on above:Performed By: #### CRP, BMP, CBC, ESR ####[address] Platelets (Bld) [#/Vol]270 10*3/cAAnomze449-089Hav [facility] Comment on above:Performed By: #### CRP, BMP, CBC, ESR ####[place] [address] USARBC (Bld) [#/Vol]3.19 10*6/uL Low3.90-5.60The [facility] Physician Laird HospitalComment on above:Performed By: #### CRP, BMP, CBC, ESR ####[place] [address] USAWBC (Bld) [#/Vol]9.1 10*3/uLNormal4.1-10.5The Firsthealth Physician GroupComment on above:Performed By: #### CRP, BMP, CBC, ESR ####[place] [address] USACreatinine [Mass/volume] in Serum or PlasmaOrdered By: Sandip Bunting on 06-06-2024 Creatinine [Mass/Vol]Creatinine [Mass/volume] in Serum or Plasma0.70-1.30 [facility] HospitalEosinophils Auto (Bld) [#/Vol]Ordered By: Sandip Bunting on 01-84-3928Bmjftqinanz (Bld) [#/Vol]Automated eosinophil count High0.0-0.45[facility] HospitalEosinophils/100 WBC Auto (Bld) Ordered By: Sandip Bunting on 94-77-4010Vvkigeeofgv/100 WBC (Bld)Automated eosinophil %.[facility] HospitalErythrocyte Sedimentation Rateon 48-51-5216IWE (Bld) [Velocity]72 mm/hHigh0-19The [facility] Comment on above:Result Comment: PERFORMED BY:[facility] [place], [place] [phone] MEDICAL DIRECTORMOKAIT CATES M.D.Performed By: #### CRP, BMP, CBC, ESR ####[facility] [place] [address] [facility] Erythrocyte distribution width Auto (RBC) [Ratio]Ordered By: Sandip Bunting on 41-39-0742Vjgrgvgzfjf distribution width (RBC) [Ratio]Erythrocyte distribution width [Ratio] by Automated fqcylEmzd89.0-14.8[facility] Erythrocyte sedimentation rate by Photometric methodOrdered By: Sandip Bunting on 59-31-7270XXP Photometric method (Bld) [Velocity]Erythrocyte sedimentation rate by Photometric methodHigh0-19[facility] HospitalGlucose [Mass/volume] in Serum or PlasmaOrdered By: Sandip Bunting on 21-56-1526Riotnjk [Mass/Vol]Glucose [Mass/volume] in Serum or Ertmiv43-660VklwxggxzSuburban Community Hospital & Brentwood HospitalComment on above:ADA recommended reference rangeRandom Glucose Reference Range is dependent on time and content of last meal. Glucose of more than 200 mg/dL in a nonstressed, ambulatory subject supports the diagnosisof Diabetes Mellitus.Hematocrit Auto (Bld) [Volume fraction]Ordered By: Sandip Bunting on 78-44-0117Fretkclptv (Bld) [Volume fraction]Hematocrit [Volume Fraction] of Blood by Automated cqqviEuz20.8-50.0[facility] HospitalHemoglobin [Mass/volume] in BloodOrdered By: Sandip Bunting on 06-06-2024 Hemoglobin (Bld) [Mass/Vol]Hemoglobin [Mass/volume] in EpbdiKkw41.0-17.0 [facility] HospitalLeukocytes [#/volume] corrected for nucleated erythrocytes in Blood by Automated counOrdered By: Sandip Bunting on 06-06-2024 WBC corrected for nucl RBC Auto (Bld) [#/Vol]Leukocytes [#/volume] corrected for nucleated erythrocytes in Blood by Automated coun4.1-10.5FMercy Health – The Jewish HospitalLymphocytes Auto (Bld) [#/Vol]Ordered By: Sandip Bunting on 94-35-8891Qcxrxkluvoq (Bld) [#/Vol]Lymphocytes [#/volume] in Blood by Automated count1.00-4.8[facility] HospitalLymphocytes/100 WBC Auto (Bld) Ordered By: Sandip Bunting on 76-36-6632Uencmnykubv/100 WBC (Bld)Lymphocytes/100 leukocytes in Blood by Automated count.[facility] HospitalMCH Auto (RBC) [Entitic mass]Ordered By: Sandip Bunting on 45-65-3920BVH (RBC) [Entitic mass]MCH [Entitic mass] by Automated count27.5-35.2FMercy Health – The Jewish HospitalMCHC Auto (RBC) [Mass/Vol]Ordered By: Sandip Bunting on 06-06-2024 MCHC (RBC) [Mass/Vol]MCHC [Mass/volume] by Automated count32.5-35.6FMercy Health – The Jewish HospitalMCV Auto (RBC) [Entitic vol]Ordered By: Sandip Bunting on 95-67-8189ZPQ (RBC) [Entitic vol]MCV [Entitic volume] by Automated count83.5-101 [facility] HospitalMonocytes Auto (Bld) [#/Vol]Ordered By: Sandip Bunting on 64-31-5766Aqvlxvfsx (Bld) [#/Vol]Automated blood monocyte count 0.0-0.8[facility] HospitalMonocytes/100 WBC Auto (Bld)Ordered By: Sandip Bunting on 09-67-3898Jnoevdzvm/100 WBC (Bld)Automated monocyte %. [facility] Brent[facility] HospitalNeutrophils Auto (Bld) [#/Vol]Ordered By: Sandip Bunting on 14-45-1540Uuxjmqvyqyk (Bld) [#/Vol]Neutrophils [#/volume] in Blood by Automated count1.8-7.7FMercy Health – The Jewish HospitalNeutrophils/100 WBC Auto (Bld)Ordered By: Sandip Bunting on 84-60-2375Uojgdybryfa/100 WBC (Bld) Automated neutrophil %.[facility] Brentwood HospitalNo Panel Information Ordered By: Sandip Bunting on 54-66-3654Ukqgkoois GFR (CKD-EPI)> 60.0 mL/Min [facility] HospitalPharmacy Creatinine Clearance (ChemN/AFMercy Health – The Jewish Hospital> 60.0 mL/MinSuburban Community Hospital & Brentwood HospitalN/A [facility] HospitalNucleated erythrocytes [Presence] in Blood by Automated countOrdered By: Sandip Bunting on 58-25-7765Vcwgzlxta RBC Auto Ql (Bld)Nucleated erythrocytes [Presence] in Blood by Automated count0-0.5FMercy Health – The Jewish HospitalPlatelet mean volume Auto (Bld) [Entitic vol]Ordered By: Sandip Bunting on 27-18-7616Lphdoamk mean volume (Bld) [Entitic vol]Platelet mean volume [Entitic volume] in Blood by Automated count6.6-10.1FMercy Health – The Jewish HospitalPlatelets Auto (Bld) [#/Vol]Ordered By: Sandip Bunting on 72-22-1458Zvsmitamx (Bld) [#/Vol]Platelets [#/volume] in Blood by Automated -694QkoloppbrSuburban Community Hospital & Brentwood HospitalPotassium [Moles/volume] in Serum or PlasmaOrdered By: Sandip Bunting on 44-57-1695Ncencebum [Moles/Vol]Potassium [Moles/volume] in Serum or Plasma3.5-5.1FMercy Health – The Jewish HospitalRBC Auto (Bld) [#/Vol]Ordered By: Sandip Bunting on 46-21-0050NZT (Bld) [#/Vol] Erythrocytes [#/volume] in Blood by Automated countLow3.90-5.60St. Francis Hospitalerum or plasma anion gap determinationOrdered By: Sandip Bunting on 86-05-1738Tkvbz gap [Moles/Vol]Serum or plasma anion gap determination6.0-15.0St. Francis Hospitalodium [Moles/volume] in Serum or PlasmaOrdered By: Sadnip Bunting on 37-81-9125Enqyie [Moles/Vol]Sodium [Moles/volume] in Serum or Laoyfp289-770ZiydqfeacSuburban Community Hospital & Brentwood HospitalUrea nitrogen [Mass/volume] in Serum or PlasmaOrdered By: Sandip Bunting on 23-08-7917Omjg nitrogen [Mass/Vol]Urea nitrogen [Mass/volume] in Serum or Plasma 09-28[facility] Brentwood HospitalWBC Auto (Bld) [#/Vol]Ordered By: Sandip Aguirre on 17-62-4592VYS (Bld) [#/Vol]Leukocytes [#/volume] in Blood by Automated count4.1-10.5FMercy Health – The Jewish HospitalUrology Office/Clinic Noteon 44-44-2298Tizunoj Office/Clinic NoteUrology Office/Clinic Note Chief Complaint New [...] lumbar decompression w/ fusion 02/21/24. Discharged to [facility] for rehab. Subsequently admitted to [facility] 03/10/2024-03/15/2024 for LIS secondary to acute urinary [...] patient has indwelling cath Patient resides at [facility] for rehab. Reports his cath has [...] perioperative complications. Lumbar spine MRI 04/03/2024 at [facility] for prostate sizing -Schedule cystoscopy. The risks [...] BPH medications. -See #1 3. Anticoagulated (Z79.01: group home (current) use of anticoagulants) On Eliquis [...] technique, single interspace; lumbar (wi (more content notincluded)...Marion HospitalComment on above:Result Comment: Electronically Signed By: Melina LECHUGA, Ambar\.br\Date and Time Signed: 06/02/24 14:35 EDTB-Type Natriuretic Peptideon 05-28-2024 Natriuretic peptide B (Bld) [Mass/Vol]407.0 pg/mLHigh5-100The Firsthealth Physician GroupComment on above:Result Comment: PERFORMED BY:[facility] [place], [place] [phone] MEDICAL DIRECTORJAJA CATES M.D.Performed By: #### BNP, ESR, CBC, CRP ####[facility] [id number] [place] [address] [facility] Basophils Auto (Bld) [#/Vol]Ordered By: Sandip Bunting on 02-28-2647Boesbbobl (Bld) [#/Vol]Automated basophil count0.0-0.2FMercy Health – The Jewish Hospital Basophils/100 WBC Auto (Bld)Ordered By: Sandip Bunting on 05-28-2024 Basophils/100 WBC (Bld)Automated basophil %.[facility] & Brentwood HospitalC reactive protein [Mass/volume] in Serum or PlasmaOrdered By: Sandip Bunting on 61-18-3154LLW [Mass/Vol]C reactive protein [Mass/volume] in Serum or PlasmaHigh 0.0-0.5FMercy Health – The Jewish HospitalC-Reactive Proteinon 93-79-2550Y- Reactive Protein8.8 mg/dLHigh0.0-0.5The Firsthealth Physician GroupComment on above:Result Comment: PERFORMED BY:[address] [place], [place] [phone] MEDICAL DIRECTORJAJA WHITE M.D.Performed By: #### BNP, ESR, CBC, CRP ####[place] [id number] USAComplete Blood Count Auto Diff on 26-53-3008Rjlbbreaj (Bld) [#/Vol]0.1 10*3/uLNormal0.0-0.2The Firsthealth Physician GroupComment on above:Performed By: #### BNP, ESR, CBC, CRP ####[place] [address] [place] Basophils/100 WBC (Bld)1.0 %Normal.The Firsthealth Physician GroupComment on above:Performed By: #### BNP, ESR, CBC, CRP ####[place] [address] USAEosinophils (Bld) [#/Vol]0.5 10*3/uL High0.0-0.45The Firsthealth Physician GroupComment on above:Performed By: #### BNP, ESR, CBC, CRP ####[place] [address] USAEosinophils/100 WBC (Bld)8.2 %Normal.[facility] Comment on above:Performed By: #### BNP, ESR, CBC, CRP ####[place] [address] USAErythrocyte distribution width (RBC) [Ratio]16.7 %High12.0-14.8The Firsthealth Physician GroupComment on above: Performed By: #### BNP, ESR, CBC, CRP ####[place] [address] USAHematocrit (Bld) [Volume fraction]25.2 %Low 38.8-50.0The Firsthealth Physician GroupComment on above:Performed By: #### BNP, ESR, CBC, CRP ####[place] [address] USAHemoglobin (Bld) [Mass/Vol]8.6 g/dLLow13.0-17.0The Firsthealth Physician GroupComment on above:Performed By: #### BNP, ESR, CBC, CRP ####[place] [address] USALymphocytes (Bld) [#/Vol]1.5 10*3/uLNormal1.00-4.8The Firsthealth Physician GroupComment on above: Performed By: #### BNP, ESR, CBC, CRP ####[place] [address] USALymphocytes/100 WBC (Bld)26.1 %Normal.The Firsthealth Physician GroupComment on above:Performed By: #### BNP, ESR, CBC, CRP ####[place] [address] [facility] MEXICOMCH (RBC) [Entitic mass]30.7 hwFdvksb40.5-35.2The Firsthealth Physician GroupComment on above:Performed By: #### BNP, ESR, CBC, CRP ####[place] [address] [facility] MEXICOMCV (RBC) [Entitic vol]90.1 fLNormal 83.5-101The Firsthealth Physician GroupComment on above:Performed By: #### BNP, ESR, CBC, CRP ####[place] [address] USAMean Corpuscular HGB Conc34.1 g/kDCasmcf14.5-35.6The Firsthealth Physician GroupComment on above:Performed By: #### BNP, ESR, CBC, CRP ####[place] [address] [place] Monocytes (Bld) [#/Vol]0.4 10*3/uLNormal0.0-0.8[facility] Comment on above:Performed By: #### BNP, ESR, CBC, CRP ####[place] [address] USAMonocytes/100 WBC (Bld)6.5 % Normal.The Firsthealth Physician GroupComment on above:Performed By: #### BNP, ESR, CBC, CRP ####[place] [address] USANeutrophils (Bld) [#/Vol]3.3 10*3/uLNormal1.8-7.7The Firsthealth Physician GroupComment on above:Performed By: #### BNP, ESR, CBC, CRP ####[address] Neutrophils/100 WBC (Bld)58.2 %Normal.The Firsthealth Physician GroupComment on above:Performed By: #### BNP, ESR, CBC, CRP ####[place] [address] USANRBC%0.1 /100{WBC}Normal0-0.5The Firsthealth Physician GroupComment on above:Performed By: #### BNP, ESR, CBC, CRP ####[address] Platelet mean volume (Bld) [Entitic vol]7.9 fLNormal6.6-10.1The Firsthealth Physician GroupComment on above:Performed By: #### BNP, ESR, CBC, CRP ####[address] Platelets (Bld) [#/Vol]186 10*3/ySGehser453-855Pun [facility] Comment on above:Performed By: #### BNP, ESR, CBC, CRP ####[place] [address] USARBC (Bld) [#/Vol]2.80 10*6/uL Low3.90-5.60The Firsthealth Physician GroupComment on above:Performed By: #### BNP, ESR, CBC, CRP ####[place] [address] [place] [address] USAWBC (Bld) [#/Vol]5.7 10*3/uLNormal4.1-10.5The Firsthealth Physician GroupComment on above:Performed By: #### BNP, ESR, CBC, CRP ####[address] [address] USAEosinophils Auto (Bld) [#/Vol]Ordered By: Sandip Bunting on 58-70-3612Gglcbxydjya (Bld) [#/Vol] Automated eosinophil countHigh0.0-0.45[facility] Eosinophils/100 WBC Auto (Bld)Ordered By: Sandip Bunting on 05-28-2024 Eosinophils/100 WBC (Bld)Automated eosinophil %.[facility] HospitalErythrocyte Sedimentation Rateon 22-19-3058DLF (Bld) [Velocity]62 mm/hHigh 0-19The Firsthealth Physician GroupComment on above:Result Comment: PERFORMED BY:[address] [place], [place] [phone] MEDICAL DIRECTORJAJA CATES M.D.Performed By: #### BNP, ESR, CBC, CRP ####[address] [address] USAErythrocyte distribution width Auto (RBC) [Ratio]Ordered By: Sandip Bunting on 68-61-0275Dydcrgfbgol distribution width (RBC) [Ratio]Erythrocyte distribution width [Ratio] by Automated mtqplKwqq05.0-14.8[facility] HospitalErythrocyte sedimentation rate by Photometric methodOrdered By: Sandip Bunting on 36-16-2697WYR Photometric method (Bld) [Velocity]Erythrocyte sedimentation rate by Photometric methodHigh0-19[facility] HospitalHematocrit Auto (Bld) [Volume fraction]Ordered By: Sandip Bunting on 60-31-1098Tuuflcebrf (Bld) [Volume fraction]Hematocrit [Volume Fraction] of Blood by Automated eeowiNjg67.8-50.0[facility] HospitalHemoglobin [Mass/volume] in BloodOrdered By: Sandip Bunting on 20-36-1443Vwymiahyuq (Bld) [Mass/Vol]Hemoglobin [Mass/volume] in TecphXer35.0-17.0[facility] Brentwood HospitalLeukocytes [#/volume] corrected for nucleated erythrocytes in Blood by Automated counOrdered By: Sandip Bunting on 82-66-4976PRO corrected for nucl RBC Auto (Bld) [#/Vol]Leukocytes [#/volume] corrected for nucleated erythrocytes in Blood by Automated coun4.1-10.5FMercy Health – The Jewish Hospital Lymphocytes Auto (Bld) [#/Vol]Ordered By: Sandip Bunting on 05-28-2024 Lymphocytes (Bld) [#/Vol]Lymphocytes [#/volume] in Blood by Automated count 1.00-4.8[facility] Brentwood HospitalLymphocytes/100 WBC Auto (Bld)Ordered By: Sandip Bunting on 86-28-5443Utxmmgtztja/100 WBC (Bld)Lymphocytes/100 leukocytes in Blood by Automated count.[facility] Brent[facility] HospitalMCH Auto (RBC) [Entitic mass]Ordered By: Sandip Bunting on 19-92-3192KKR (RBC) [Entitic mass]MCH [Entitic mass] by Automated count27.5-35.2FMercy Health – The Jewish HospitalMCHC Auto (RBC) [Mass/Vol]Ordered By: Sandip Bunting on 64-83-9950OPNJ (RBC) [Mass/Vol]MCHC [Mass/volume] by Automated count32.5-35.6FMercy Health – The Jewish HospitalMCV Auto (RBC) [Entitic vol]Ordered By: Sandip Bunting on 93-69-5907DOQ (RBC) [Entitic vol]MCV [Entitic volume] by Automated count83.5-101 [facility] HospitalMonocytes Auto (Bld) [#/Vol]Ordered By: Sandip Bunting on 71-90-9472Axrsnkfxs (Bld) [#/Vol]Automated blood monocyte count 0.0-0.8[facility] HospitalMonocytes/100 WBC Auto (Bld)Ordered By: Sandip Bunting on 75-12-4308Sotjvache/100 WBC (Bld)Automated monocyte %. [facility] Brentwood HospitalNatriuretic peptide B [Mass/Vol]Ordered By: Sandip Bunting on 53-28-3066Iqrlxsopwaq peptide B (Bld) [Mass/Vol]BNP ser/plas High5-100[facility] Brentwood HospitalNeutrophils Auto (Bld) [#/Vol]Ordered By: Sandip Bunting on 94-75-6532Trvlwjfhnpf (Bld) [#/Vol]Neutrophils [#/volume] in Blood by Automated count1.8-7.7FMercy Health – The Jewish Hospital Neutrophils/100 WBC Auto (Bld)Ordered By: Sandip Bunting on 05-28-2024 Neutrophils/100 WBC (Bld)Automated neutrophil %.[facility] Brentwood HospitalNucleated erythrocytes [Presence] in Blood by Automated countOrdered By: Sandip Bunting on 83-43-2989Opglcquqa RBC Auto Ql (Bld)Nucleated erythrocytes [Presence] in Blood by Automated count0-0.5FMercy Health – The Jewish Hospital Platelet mean volume Auto (Bld) [Entitic vol]Ordered By: Sandip Bunting on 33-31-7858Ddgqnlki mean volume (Bld) [Entitic vol]Platelet mean volume [Entitic volume] in Blood by Automated count6.6-10.1FMercy Health – The Jewish Hospital Platelets Auto (Bld) [#/Vol]Ordered By: Sandip Bunting on 78-52-4192Phlrftjsf (Bld) [#/Vol]Platelets [#/volume] in Blood by Automated ukkyx749-204KhybzvccrSuburban Community Hospital & Brentwood HospitalRBC Auto (Bld) [#/Vol]Ordered By: Sandip Bunting on 56-03-3559OTP (Bld) [#/Vol]Erythrocytes [#/volume] in Blood by Automated count Low3.90-5.60[facility] HospitalWBC Auto (Bld) [#/Vol]Ordered By: Sandip Bunting on 13-39-2176DXR (Bld) [#/Vol]Leukocytes [#/volume] in Blood by Automated count4.1-10.5FMercy Health – The Jewish HospitalB-Type Natriuretic Peptideon 82-87-1725Hvnsnjetvdi peptide B (Bld) [Mass/Vol]300.0 pg/mLHigh5-100 The Firsthealth Physician GroupComment on above:Result Comment: PERFORMED BY:[place] [address] [place], [place] [phone] MEDICAL DIRECTORJAJA CATES M.D.Performed By: #### BNP, ESR, CRP, CBC ####[address] [address] USABasophils Auto (Bld) [#/Vol]Ordered By: Sandip Bunting on 05-21-2024 Basophils (Bld) [#/Vol]Automated basophil count0.0-0.2FMercy Health – The Jewish HospitalBasophils/100 WBC Auto (Bld)Ordered By: Sandip Bunting on 05-21-2024 Basophils/100 WBC (Bld)Automated basophil %.[facility] Brentwood HospitalC reactive protein [Mass/volume] in Serum or PlasmaOrdered By: Sandip Bunting on 20-08-7275AGC [Mass/Vol]C reactive protein [Mass/volume] in Serum or PlasmaHigh 0.0-0.5FMercy Health – The Jewish HospitalC-Reactive Proteinon 35-70-4594E- Reactive Protein3.8 mg/dLHigh0.0-0.5The Firsthealth Physician GroupComment on above:Result Comment: PERFORMED BY:[place] [address] [place], [place] [phone] MEDICAL DIRECTORJAJA WHITE M.D.Performed By: #### BNP, ESR, CRP, CBC ####[address] [address] USAComplete Blood Count Auto Diff on 47-37-5603Oupvhozeq (Bld) [#/Vol]0.0 10*3/uLNormal0.0-0.2The Firsthealth Physician GroupComment on above:Performed By: #### BNP, ESR, CRP, CBC ####[address] [address] [place] Basophils/100 WBC (Bld)1.1 %Normal.The Firsthealth Physician GroupComment on above:Performed By: #### BNP, ESR, CRP, CBC ####[place] [address] USAEosinophils (Bld) [#/Vol]0.4 10*3/uL Normal0.0-0.45The Firsthealth Physician GroupComment on above:Performed By: #### BNP, ESR, CRP, CBC ####[place] [address] USAEosinophils/100 WBC (Bld)8.7 %Normal.[facility] Comment on above:Performed By: #### BNP, ESR, CRP, CBC ####[place] [address] USAErythrocyte distribution width (RBC) [Ratio]16.4 %High12.0-14.8The Firsthealth Physician GroupComment on above: Performed By: #### BNP, ESR, CRP, CBC ####[place] [address] USAHematocrit (Bld) [Volume fraction]23.8 %Low 38.8-50.0The Firsthealth Physician GroupComment on above:Performed By: #### BNP, ESR, CRP, CBC ####[place] [address] USAHemoglobin (Bld) [Mass/Vol]7.9 g/dLLow13.0-17.0The Firsthealth Physician GroupComment on above:Performed By: #### BNP, ESR, CRP, CBC ####[place] [id number] USALymphocytes (Bld) [#/Vol]1.5 10*3/uLNormal1.00-4.8The Firsthealth Physician GroupComment on above: Performed By: #### BNP, ESR, CRP, CBC ####[place] [id number] USALymphocytes/100 WBC (Bld)36.1 %Normal.The Firsthealth Physician GroupComment on above:Performed By: #### BNP, ESR, CRP, CBC ####[address] [place] [address] USAMCH (RBC) [Entitic mass]30.4 psAorvfp20.5-35.2The Firsthealth Physician GroupComment on above:Performed By: #### BNP, ESR, CRP, CBC ####[address] (RBC) [Entitic vol]90.8 fLNormal 83.5-101The Firsthealth Physician GroupComment on above:Performed By: #### BNP, ESR, CRP, CBC ####[place] [address] USAMean Corpuscular HGB Conc33.4 g/aUVbkokj74.5-35.6The Firsthealth Physician GroupComment on above:Performed By: #### BNP, ESR, CRP, CBC ####[place] [address] [place] Monocytes (Bld) [#/Vol]0.4 10*3/uLNormal0.0-0.8[facility] Comment on above:Performed By: #### BNP, ESR, CRP, CBC ####[place] [address] USAMonocytes/100 WBC (Bld)9.5 % Normal.The Firsthealth Physician GroupComment on above:Performed By: #### BNP, ESR, CRP, CBC ####[place] [address] USANeutrophils (Bld) [#/Vol]1.9 10*3/uLNormal1.8-7.7The Firsthealth Physician GroupComment on above:Performed By: #### BNP, ESR, CRP, CBC ####[place] [address] [place] Neutrophils/100 WBC (Bld)44.6 %Normal.The Firsthealth Physician GroupComment on above:Performed By: #### BNP, ESR, CRP, CBC ####[place] [address] USANRBC%0.2 /100{WBC}Normal0-0.5The Firsthealth Physician GroupComment on above:Performed By: #### BNP, ESR, CRP, CBC ####[address] Platelet mean volume (Bld) [Entitic vol]7.5 fLNormal6.6-10.1The Firsthealth Physician GroupComment on above:Performed By: #### BNP, ESR, CRP, CBC ####[address] Platelets (Bld) [#/Vol]185 10*3/tVPqlpuw661-555Hdx [facility] Comment on above:Performed By: #### BNP, ESR, CRP, CBC ####[place] [address] USARBC (Bld) [#/Vol]2.62 10*6/uL Low3.90-5.60The Firsthealth Physician GroupComment on above:Performed By: #### BNP, ESR, CRP, CBC ####[place] [address] USAWBC (Bld) [#/Vol]4.2 10*3/uLNormal4.1-10.5The Firsthealth Physician GroupComment on above:Performed By: #### BNP, ESR, CRP, CBC ####[place] [address] USAEosinophils Auto (Bld) [#/Vol]Ordered By: Sandip Aguirre on 97-94-8956Efjenstgdzp (Bld) [#/Vol] Automated eosinophil count0.0-0.45[facility] Eosinophils/100 WBC Auto (Bld)Ordered By: Sandip Aguirre on 05-21-2024 Eosinophils/100 WBC (Bld)Automated eosinophil %.[facility] HospitalErythrocyte Sedimentation Rateon 80-03-5913QUO (Bld) [Velocity]35 mm/hHigh 0-19The Firsthealth Physician GroupComment on above:Result Comment: PERFORMED BY:[address] [place], [place] [phone] MEDICAL DIRECTORJAJA CATES M.D.Performed By: #### BNP, ESR, CRP, CBC ####[facility] [address] [place] [address] [facility]ICOErythrocyte distribution width Auto (RBC) [Ratio]Ordered By: Sandip Bunsantiago on 54-79-7666Vwlrshjurgt distribution width (RBC) [Ratio]Erythrocyte distribution width [Ratio] by Automated dhkowNtek37.0-14.8[facility] HospitalErythrocyte sedimentation rate by Photometric methodOrdered By: Sandip Bunting on 42-85-4652IWY Photometric method (Bld) [Velocity]Erythrocyte sedimentation rate by Photometric methodHigh0-19[facility] HospitalHematocrit Auto (Bld) [Volume fraction]Ordered By: Sandip Bunting on 14-67-8773Gtihggnurs (Bld) [Volume fraction]Hematocrit [Volume Fraction] of Blood by Automated maxgiOcy40.8-50.0[facility] HospitalHemoglobin [Mass/volume] in BloodOrdered By: Sandip Bunting on 39-62-8138Wljfowqwsh (Bld) [Mass/Vol]Hemoglobin [Mass/volume] in IvtfqEgl72.0-17.0[facility] HospitalInfectious Disease Office/Clinic Noteon 24-97-6014Sykxcbriuc Disease Office/Clinic NoteAssessment/Plan 1. Surgical wound dehiscence Plan: This time we will send orders over to discontinue midline. Would like repeat lab work on 05/28. CBC/basic metabolic profile, CRP, and sed rate. Will call results. Will see how he does off antibiotics. Encouraged to follow-up with neurosurgeon regarding his back.Also would be a good idea to connect with web producer he continues to have mildly elevated creatinine. [...] should have completed treatment on 05/17/2024. This story writer did review most recent lab work [...] the andre [1] he had surgery at [facility] in [place].Postoperatively gained a lot of fluid weight. Also has catheter for urinary retention. Has chronic lymphedema uses pumps at home. Admitted to [place] had MRI that showed fluid collection. History ofA-fib. Surgery was not done there due to need for cardiology services. Transferred to [facility] where he connected with cardiology. Actually [...] Daily atorvastatin 40 m (more content not included)...[facility] HealthLeukocytes [#/volume] corrected for nucleated erythrocytes in Blood by Automated counOrdered By: Sandip Aguirre on 20-37-1358YZN corrected for nucl RBC Auto (Bld) [#/Vol]Leukocytes [#/volume] corrected for nucleated erythrocytes in Blood by Automated coun4.1-10.5FMercy Health – The Jewish HospitalLymphocytes Auto (Bld) [#/Vol]Ordered By: Sandip Aguirre on 85-81-9730Ssdpjxgvdoo (Bld) [#/Vol]Lymphocytes [#/volume] in Blood by Automated count1.00-4.8[facility] HospitalLymphocytes/100 WBC Auto (Bld)Ordered By: Sandip Bunting on 46-07-6073Jlfdbizgqec/100 WBC (Bld)Lymphocytes/100 leukocytes in Blood by Automated count.[facility] HospitalMCH Auto (RBC) [Entitic mass] Ordered By: Sandip Bunting on 12-76-8894OYW (RBC) [Entitic mass]MCH [Entitic mass] by Automated count27.5-35.2FMercy Health – The Jewish HospitalMCHC Auto (RBC) [Mass/Vol]Ordered By: Sandip Bunting on 39-91-8294OVQH (RBC) [Mass/Vol] MCHC [Mass/volume] by Automated count32.5-35.6FMercy Health [facility] Hospital MCV Auto (RBC) [Entitic vol]Ordered By: Sandip Bunting on 97-27-5842JDT (RBC) [Entitic vol]MCV [Entitic volume] by Automated count83.5-101[facility] HospitalMonocytes Auto (Bld) [#/Vol]Ordered By: Sandip Bunting on 56-19-8728Bosisilra (Bld) [#/Vol]Automated blood monocyte count0.0-0.8[facility] HospitalMonocytes/100 WBC Auto (Bld)Ordered By: Sandip Bunting on 78-23-6484Iddkloeoe/100 WBC (Bld)Automated monocyte %.[facility] HospitalNatriuretic peptide B [Mass/Vol]Ordered By: Sandip Bunting on 70-47-3759Eqvzueuuyvw peptide B (Bld) [Mass/Vol]BNP ser/plasHigh5-100[facility] HospitalNeutrophils Auto (Bld) [#/Vol]Ordered By: Sandip Bunting on 97-87-7280Ofaqpezjqjr (Bld) [#/Vol]Neutrophils [#/volume] in Blood by Automated count1.8-7.7FMercy Health – The Jewish HospitalNeutrophils/100 WBC Auto (Bld)Ordered By: Sandip Bunting on 88-83-3767Nsvsbbfkqoc/100 WBC (Bld)Automated neutrophil %.[facility] HospitalNucleated erythrocytes [Presence] in Blood by Automated countOrdered By: Sandip Bunting on 27-46-5851Rxjcbgsbu RBC Auto Ql (Bld)Nucleated erythrocytes [Presence] in Blood by Automated count0-0.5 [facility] HospitalPlatelet mean volume Auto (Bld) [Entitic vol] Ordered By: Sandip Bunting on 18-28-0248Letrrrsj mean volume (Bld) [Entitic vol] Platelet mean volume [Entitic volume] in Blood by Automated count6.6-10.1 [facility] HospitalPlatelets Auto (Bld) [#/Vol]Ordered By: Sandip Bunting on 15-25-3896Ybiqggdyb (Bld) [#/Vol]Platelets [#/volume] in Blood by Automated cbayk623-677AbrgvxsqpSuburban Community Hospital & Brentwood HospitalRBC Auto (Bld) [#/Vol] Ordered By: Sandip Bunting on 84-69-7920BDV (Bld) [#/Vol]Erythrocytes [#/volume] in Blood by Automated countLow3.90-5.60[facility] HospitalWBC Auto (Bld) [#/Vol]Ordered By: Sandip Bunting on 32-86-7416GEZ (Bld) [#/Vol] Leukocytes [#/volume] in Blood by Automated count4.1-10.5FMercy Health – The Jewish HospitalB-Type Natriuretic Peptideon 02-77-3117Iggmrvckdep peptide B (Bld) [Mass/Vol]322.0 pg/mLHigh5-100The Firsthealth Physician GroupComment on above: Result Comment: PERFORMED BY:[facility] [place], [place] [phone] MEDICAL DIRECTORJAJA WHITE M.D.Performed By: #### CBC, CRP, BNP, ESR ####[address] [place] [address] USABasophils Auto (Bld) [#/Vol] Ordered By: Sandip Bunting on 51-70-1904Ylpwsldvp (Bld) [#/Vol]Automated basophil count0.0-0.2FMercy Health – The Jewish HospitalBasophils/100 WBC Auto (Bld)Ordered By: Sandip Bunting on 39-45-5356Skqqavgoh/100 WBC (Bld)Automated basophil %.[facility] HospitalC reactive protein [Mass/volume] in Serum or PlasmaOrdered By: Sandip Aguirre on 03-65-0195ZND [Mass/Vol]C reactive protein [Mass/volume] in Serum or PlasmaHigh0.0-0.5FMercy Health – The Jewish HospitalC-Reactive Proteinon 14-57-0181P-Reactive Protein6.0 mg/dLHigh0.0-0.5The Firsthealth Physician GroupComment on above:Result Comment: PERFORMED BY:[address] [place], [place] [phone] MEDICAL DIRECTORJAJA CATES M.D.Performed By: #### CBC, CRP, BNP, ESR ####[place] [id number] [facility] Complete Blood Count Auto Diffon 68-97-5678Gmkuschjg (Bld) [#/Vol]0.0 10*3/uL Normal0.0-0.2The Firsthealth Physician GroupComment on above:Performed By: #### CBC, CRP, BNP, ESR ####[address] [address] USABasophils/100 WBC (Bld)0.9 %Normal.[facility] Comment on above:Performed By: #### CBC, CRP, BNP, ESR ####[address] [address] USAEosinophils (Bld) [#/Vol]0.5 10*3/uLHigh0.0-0.45The Firsthealth Physician GroupComment on above:Performed By: #### CBC, CRP, BNP, ESR ####[address] [address] USAEosinophils/100 WBC (Bld)10.9 %Normal.The Firsthealth Physician GroupComment on above:Performed By: #### CBC, CRP, BNP, ESR ####[address] [address] [facility] Erythrocyte distribution width (RBC) [Ratio]16.9 %High12.0-14.8The Firsthealth Physician GroupComment on above:Performed By: #### CBC, CRP, BNP, ESR ####[place] [address] [place] Hematocrit (Bld) [Volume fraction]24.8 %Low38.8-50.0The Firsthealth Physician GroupComment on above:Performed By: #### CBC, CRP, BNP, ESR ####[place] [address] USAHemoglobin (Bld) [Mass/Vol]8.3 g/dLLow13.0-17.0The Firsthealth Physician GroupComment on above: Performed By: #### CBC, CRP, BNP, ESR ####[place] [address] USALymphocytes (Bld) [#/Vol]1.4 10*3/uLNormal 1.00-4.8The Firsthealth Physician GroupComment on above:Performed By: #### CBC, CRP, BNP, ESR ####[place] [address] USALymphocytes/100 WBC (Bld)29.6 %Normal.[facility] Comment on above:Performed By: #### CBC, CRP, BNP, ESR ####[place] [id number] USAMCH (RBC) [Entitic mass]30.4 ydHcxqxr51.5-35.2The Firsthealth Physician GroupComment on above:Performed By: #### CBC, CRP, BNP, ESR ####[place] [address] USAMCV (RBC) [Entitic vol]90.6 vHZjegeb26.5-101The Firsthealth Physician GroupComment on above:Performed By: #### CBC, CRP, BNP, ESR ####[place] [address] USAMean Corpuscular HGB Conc33.5 g/jHGyxcfk85.5-35.6The Firsthealth Physician GroupComment on above:Performed By: #### CBC, CRP, BNP, ESR ####[place] [address] USAMonocytes (Bld) [#/Vol]0.4 10*3/uL Normal0.0-0.8The Firsthealth Physician GroupComment on above:Performed By: #### CBC, CRP, BNP, ESR ####[place] [address] USAMonocytes/100 WBC (Bld)9.0 %Normal.[facility] Comment on above:Performed By: #### CBC, CRP, BNP, ESR ####[place] [address] USANeutrophils (Bld) [#/Vol]2.3 10*3/uLNormal1.8-7.7The Firsthealth Physician GroupComment on above:Performed By: #### CBC, CRP, BNP, ESR ####[place] [address] USANeutrophils/100 WBC (Bld)49.6 %Normal.The Firsthealth Physician GroupComment on above:Performed By: #### CBC, CRP, BNP, ESR ####[place] [address] USANRBC% 0.1 /100{WBC}Normal0-0.5The Firsthealth Physician GroupComment on above:Performed By: #### CBC, CRP, BNP, ESR ####[place] [id number] USAPlatelet mean volume (Bld) [Entitic vol]7.7 fLNormal 6.6-10.1The Firsthealth Physician GroupComment on above:Performed By: #### CBC, CRP, BNP, ESR ####[place] [id number] USAPlatelets (Bld) [#/Vol]207 10*3/rJKwbqio431-444Oyr Firsthealth Physician GroupComment on above:Performed By: #### CBC, CRP, BNP, ESR ####[address] [address] USARBC (Bld) [#/Vol]2.73 10*6/uLLow3.90-5.60The Firsthealth Physician GroupComment on above:Performed By: #### CBC, CRP, BNP, ESR ####[address] [address] USAWBC (Bld) [#/Vol]4.7 10*3/uLNormal4.1-10.5The Firsthealth Physician GroupComment on above:Performed By: #### CBC, CRP, BNP, ESR ####[address] [address] [place] Eosinophils Auto (Bld) [#/Vol]Ordered By: Sandip Bunting on 05-14-2024 Eosinophils (Bld) [#/Vol]Automated eosinophil countHigh0.0-0.45[facility] HospitalEosinophils/100 WBC Auto (Bld)Ordered By: Sandip Bunting on 46-64-4695Qvidsboctfl/100 WBC (Bld)Automated eosinophil %.[facility] HospitalErythrocyte Sedimentation Rateon 46-32-3219KWF (Bld) [Velocity]59 mm/hHigh0-19The Firsthealth Physician GroupComment on above:Result Comment: PERFORMED BY:[address] [place], [place] [phone] MEDICAL DIRECTORJAJA CATES M.D. Performed By: #### CBC, CRP, BNP, ESR ####[address] [address] USAErythrocyte distribution width Auto (RBC) [Ratio]Ordered By: Sandip Bunting on 09-39-6580Fcdsfejjwny distribution width (RBC) [Ratio]Erythrocyte distribution width [Ratio] by Automated countHigh 12.0-14.8[facility] HospitalErythrocyte sedimentation rate by Photometric methodOrdered By: Sandip Bunting on 73-36-3830SRF Photometric method (Bld) [Velocity]Erythrocyte sedimentation rate by Photometric methodHigh0-19 [facility] HospitalHematocrit Auto (Bld) [Volume fraction]Ordered By: Sandip Bunting on 20-34-8009Uuwbhpyiqu (Bld) [Volume fraction]Hematocrit [Volume Fraction] of Blood by Automated cezioOrd61.8-50.0[facility] HospitalHemoglobin [Mass/volume] in BloodOrdered By: Sandip Bunting on 37-19-6736Kdgyasweux (Bld) [Mass/Vol]Hemoglobin [Mass/volume] in BloodLow 13.0-17.0[facility] HospitalLeukocytes [#/volume] corrected for nucleated erythrocytes in Blood by Automated counOrdered By: Sandip Bunting on 86-56-6750IMZ corrected for nucl RBC Auto (Bld) [#/Vol]Leukocytes [#/volume] corrected for nucleated erythrocytes in Blood by Automated coun4.1-10.5FMercy Health – The Jewish HospitalLymphocytes Auto (Bld) [#/Vol]Ordered By: Sandip Bunting on 54-77-4818Sgubjwxdlxi (Bld) [#/Vol]Lymphocytes [#/volume] in Blood by Automated count1.00-4.8[facility] HospitalLymphocytes/100 WBC Auto (Bld)Ordered By: Sandip Bunting on 86-74-4870Hegqyzsbsbw/100 WBC (Bld) Lymphocytes/100 leukocytes in Blood by Automated count.[facility] HospitalH Auto (RBC) [Entitic mass]Ordered By: Sandip Bunting on 73-40-0673LBC (RBC) [Entitic mass]MCH [Entitic mass] by Automated count27.5-35.2 [facility] HospitalMCHC Auto (RBC) [Mass/Vol]Ordered By: Sandip Bunting on 49-72-0859BBOR (RBC) [Mass/Vol]MCHC [Mass/volume] by Automated count 32.5-35.6FMercy Health – The Jewish HospitalMCV Auto (RBC) [Entitic vol]Ordered By: Snadip Bunting on 21-05-5537LDZ (RBC) [Entitic vol]MCV [Entitic volume] by Automated count83.5-101[facility] HospitalMonocytes Auto (Bld) [#/Vol]Ordered By: Sandip Bunting on 57-30-4376Ghjfnfzlq (Bld) [#/Vol]Automated blood monocyte count0.0-0.8[facility] HospitalMonocytes/100 WBC Auto (Bld)Ordered By: Sandip Bunting on 02-59-7213Mczbufpim/100 WBC (Bld) Automated monocyte %.[facility] HospitalNatriuretic peptide B [Mass/Vol]Ordered By: Sandip Bunting on 88-19-4602Vzgnzqsjifs peptide B (Bld) [Mass/Vol]BNP ser/plasHigh5-100[facility] HospitalNeutrophils Auto (Bld) [#/Vol]Ordered By: Sandip Bunting on 39-24-3779Xrgoxctxlbq (Bld) [#/Vol] Neutrophils [#/volume] in Blood by Automated count1.8-7.7FMercy Health – The Jewish HospitalNeutrophils/100 WBC Auto (Bld)Ordered By: Sandip Bunting on 78-42-1498Jpfsirehbnl/100 WBC (Bld)Automated neutrophil %.[facility] HospitalNucleated erythrocytes [Presence] in Blood by Automated count Ordered By: Sandip Bunting on 07-24-6558Tnsufjqqc RBC Auto Ql (Bld)Nucleated erythrocytes [Presence] in Blood by Automated count0-0.5FMercy Health – The Jewish HospitalPlatelet mean volume Auto (Bld) [Entitic vol]Ordered By: Sandip Bunting on 41-25-4713Mbeepyuq mean volume (Bld) [Entitic vol]Platelet mean volume [Entitic volume] in Blood by Automated count6.6-10.1FMercy Health – The Jewish HospitalPlatelets Auto (Bld) [#/Vol]Ordered By: Sandip Bunting on 97-35-9899Hbzhnvoou (Bld) [#/Vol]Platelets [#/volume] in Blood by Automated -360UvqhcxeotSuburban Community Hospital & Brentwood HospitalRBC Auto (Bld) [#/Vol]Ordered By: Sandip Bunting on 97-17-6730DKG (Bld) [#/Vol]Erythrocytes [#/volume] in Blood by Automated countLow3.90-5.60[facility] HospitalWBC Auto (Bld) [#/Vol]Ordered By: Sandip Bunting on 52-62-2959LCR (Bld) [#/Vol]Leukocytes [#/volume] in Blood by Automated count4.1-10.5FMercy Health – The Jewish Hospital B-Type Natriuretic Peptideon 89-82-6029Oouanryexcr peptide B (Bld) [Mass/Vol] 356.0 pg/mLHigh5-100The Firsthealth Physician GroupComment on above:Result Comment: PERFORMED BY:[place] [address] [place], [place] [phone] MEDICAL DIRECTORJAJA CATES M.D. Performed By: #### ESR, CRP, BNP, CBC ####[place] [address] [place] [address] USABasophils Auto (Bld) [#/Vol]Ordered By: Sandip Bunting on 22-67-2340Aronwotra (Bld) [#/Vol]Automated basophil count0.0-0.2 [facility] HospitalBasophils/100 WBC Auto (Bld)Ordered By: Sandip Bunting on 91-18-9755Ytjafpfaj/100 WBC (Bld)Automated basophil %.[facility] Brent[facility] HospitalC reactive protein [Mass/volume] in Serum or Plasma Ordered By: Sandip Bunting on 03-68-5780GWD [Mass/Vol]C reactive protein [Mass/volume] in Serum or PlasmaHigh0.0-0.5FMercy Health – The Jewish HospitalC- Reactive Proteinon 93-66-8799Z-Reactive Protein5.8 mg/dLHigh0.0-0.5The Firsthealth Physician GroupComment on above:Result Comment: PERFORMED BY:[place] [address] [place], [place] [phone] MEDICAL DIRECTORJAJA CATES M.D.Performed By: #### ESR, CRP, BNP, CBC ####[address] [address] [facility] Complete Blood Count Auto Diffon 70-06-3423Oequncylo (Bld) [#/Vol]0.1 10*3/uL Normal0.0-0.2The Firsthealth Physician GroupComment on above:Performed By: #### ESR, CRP, BNP, CBC ####[place] [address] USABasophils/100 WBC (Bld)1.3 %Normal.[facility] Comment on above:Performed By: #### ESR, CRP, BNP, CBC ####[place] [address] USAEosinophils (Bld) [#/Vol]0.4 10*3/uLNormal0.0-0.45The Firsthealth Physician GroupComment on above:Performed By: #### ESR, CRP, BNP, CBC ####[place] [address] USAEosinophils/100 WBC (Bld)7.9 %Normal.The Firsthealth Physician GroupComment on above:Performed By: #### ESR, CRP, BNP, CBC ####[address] Erythrocyte distribution width (RBC) [Ratio]17.2 %High12.0-14.8The Firsthealth Physician GroupComment on above:Performed By: #### ESR, CRP, BNP, CBC ####[place] [address] [place] Hematocrit (Bld) [Volume fraction]26.9 %Low38.8-50.0The Firsthealth Physician GroupComment on above:Performed By: #### ESR, CRP, BNP, CBC ####[place] [address] USAHemoglobin (Bld) [Mass/Vol]8.8 g/dLLow13.0-17.0The Firsthealth Physician GroupComment on above: Performed By: #### ESR, CRP, BNP, CBC ####[place] [address] USALymphocytes (Bld) [#/Vol]1.3 10*3/uLNormal 1.00-4.8The Firsthealth Physician GroupComment on above:Performed By: #### ESR, CRP, BNP, CBC ####[place] [id number] USALymphocytes/100 WBC (Bld)29.0 %Normal.[facility] Comment on above:Performed By: #### ESR, CRP, BNP, CBC ####[place] [id number] [facility] [place] (RBC) [Entitic mass]30.0 fiIjrbzz23.5-35.2The Firsthealth Physician GroupComment on above:Performed By: #### ESR, CRP, BNP, CBC ####[place] [id number] [facility]IDV (RBC) [Entitic vol]91.3 aQHkgibe05.5-101The Firsthealth Physician GroupComment on above:Performed By: #### ESR, CRP, BNP, CBC ####[place] [address] USAMean Corpuscular HGB Conc32.9 g/eHWjktki94.5-35.6The Firsthealth Physician GroupComment on above:Performed By: #### ESR, CRP, BNP, CBC ####[place] [address] USAMonocytes (Bld) [#/Vol]0.3 10*3/uL Normal0.0-0.8The Firsthealth Physician GroupComment on above:Performed By: #### ESR, CRP, BNP, CBC ####[place] [address] USAMonocytes/100 WBC (Bld)6.4 %Normal.[facility] Comment on above:Performed By: #### ESR, CRP, BNP, CBC ####[place] [address] USANeutrophils (Bld) [#/Vol]2.6 10*3/uLNormal1.8-7.7The Firsthealth Physician GroupComment on above:Performed By: #### ESR, CRP, BNP, CBC ####[place] [address] USANeutrophils/100 WBC (Bld)55.4 %Normal.The Firsthealth Physician GroupComment on above:Performed By: #### ESR, CRP, BNP, CBC ####[place] [address] USANRBC% 0.1 /100{WBC}Normal0-0.5The Firsthealth Physician GroupComment on above:Performed By: #### ESR, CRP, BNP, CBC ####[place] [address] USAPlatelet mean volume (Bld) [Entitic vol]7.6 fLNormal 6.6-10.1The Firsthealth Physician GroupComment on above:Performed By: #### ESR, CRP, BNP, CBC ####[place] [address] USAPlatelets (Bld) [#/Vol]192 10*3/iLUfrxrs032-272Ozs Firsthealth Physician GroupComment on above:Performed By: #### ESR, CRP, BNP, CBC ####[place] [address] USARBC (Bld) [#/Vol]2.95 10*6/uLLow3.90-5.60The Firsthealth Physician GroupComment on above:Performed By: #### ESR, CRP, BNP, CBC ####[place] [address] USAWBC (Bld) [#/Vol]4.7 10*3/uLNormal4.1-10.5The Firsthealth Physician GroupComment on above:Performed By: #### ESR, CRP, BNP, CBC ####[place] [address] [place] Eosinophils Auto (Bld) [#/Vol]Ordered By: Sandip Aguirre on 05-07-2024 Eosinophils (Bld) [#/Vol]Automated eosinophil count0.0-0.45[facility] HospitalEosinophils/100 WBC Auto (Bld)Ordered By: Sandip Aguirre on 31-43-3451Kjouecgynqy/100 WBC (Bld)Automated eosinophil %.[facility] HospitalErythrocyte Sedimentation Rateon 96-10-4498RBJ (Bld) [Velocity]65 mm/hHigh0-19The Firsthealth Physician GroupComment on above:Result Comment: PERFORMED BY:[facility] [place], [place] [phone] MEDICAL DIRECTORJAJA CATES M.D. Performed By: #### ESR, CRP, BNP, CBC ####[facility] [place] [address] USAErythrocyte distribution width Auto (RBC) [Ratio]Ordered By: Sandip Bunting on 12-60-5562Dssfngczeht distribution width (RBC) [Ratio]Erythrocyte distribution width [Ratio] by Automated countHigh 12.0-14.8[facility] HospitalErythrocyte sedimentation rate by Photometric methodOrdered By: Sandip Bunting on 52-62-0215DCR Photometric method (Bld) [Velocity]Erythrocyte sedimentation rate by Photometric methodHigh0-19 [facility] HospitalHematocrit Auto (Bld) [Volume fraction]Ordered By: Sandip Bunting on 10-98-4766Ldtzmikgcs (Bld) [Volume fraction]Hematocrit [Volume Fraction] of Blood by Automated ujiqnFzg72.8-50.0[facility] HospitalHemoglobin [Mass/volume] in BloodOrdered By: Sandip Bunting on 76-34-1115Vyxmnhnkat (Bld) [Mass/Vol]Hemoglobin [Mass/volume] in BloodLow 13.0-17.0[facility] HospitalLeukocytes [#/volume] corrected for nucleated erythrocytes in Blood by Automated counOrdered By: Sandip Bunting on 33-62-3552ZWY corrected for nucl RBC Auto (Bld) [#/Vol]Leukocytes [#/volume] corrected for nucleated erythrocytes in Blood by Automated coun4.1-10.5FMercy Health – The Jewish HospitalLymphocytes Auto (Bld) [#/Vol]Ordered By: Sandip Bunting on 62-13-9628Ahjdjfhcwkd (Bld) [#/Vol]Lymphocytes [#/volume] in Blood by Automated count1.00-4.8[facility] HospitalLymphocytes/100 WBC Auto (Bld)Ordered By: Sandip Bunting on 79-58-4906Qxvuvmeaihl/100 WBC (Bld) Lymphocytes/100 leukocytes in Blood by Automated count.[facility] HospitalH Auto (RBC) [Entitic mass]Ordered By: Sandip Bunting on 82-27-1212MMV (RBC) [Entitic mass]MCH [Entitic mass] by Automated count27.5-35.2 [facility] HospitalMCHC Auto (RBC) [Mass/Vol]Ordered By: Sandip Bunting on 07-31-7256CZCV (RBC) [Mass/Vol]MCHC [Mass/volume] by Automated count 32.5-35.6FMercy Health – The Jewish HospitalMCV Auto (RBC) [Entitic vol]Ordered By: Sandip Bunting on 76-99-5354NTL (RBC) [Entitic vol]MCV [Entitic volume] by Automated count83.5-101[facility] HospitalMonocytes Auto (Bld) [#/Vol]Ordered By: Sandip Bunting on 89-77-3839Rlxknzllt (Bld) [#/Vol]Automated blood monocyte count0.0-0.8[facility] HospitalMonocytes/100 WBC Auto (Bld)Ordered By: Sandip Bunting on 15-07-7925Jhjncekub/100 WBC (Bld) Automated monocyte %.[facility] Brentwood HospitalNatriuretic peptide B [Mass/Vol]Ordered By: Sandip Bunting on 01-86-8340Aydowwrlxuu peptide B (Bld) [Mass/Vol]BNP ser/plasHigh5-100[facility]urban [facility] HospitalNeutrophils Auto (Bld) [#/Vol]Ordered By: Sandip Bunting on 84-26-0197Adwrquhdvvr (Bld) [#/Vol] Neutrophils [#/volume] in Blood by Automated count1.8-7.7FMercy Health – The Jewish HospitalNeutrophils/100 WBC Auto (Bld)Ordered By: Sandip Bunting on 19-36-8587Lcfqczngnbd/100 WBC (Bld)Automated neutrophil %.[facility] HospitalNucleated erythrocytes [Presence] in Blood by Automated count Ordered By: Sandip Bunting on 35-52-6292Qmsodhdab RBC Auto Ql (Bld)Nucleated erythrocytes [Presence] in Blood by Automated count0-0.5FMercy Health – The Jewish HospitalPlatelet mean volume Auto (Bld) [Entitic vol]Ordered By: Sandip Bunting on 80-86-3917Utoecdlf mean volume (Bld) [Entitic vol]Platelet mean volume [Entitic volume] in Blood by Automated count6.6-10.1FMercy Health – The Jewish HospitalPlatelets Auto (Bld) [#/Vol]Ordered By: Sandip Bunting on 00-54-0774Lxzxhmwxt (Bld) [#/Vol]Platelets [#/volume] in Blood by Automated rrhqa861-389DhbntcilySuburban [facility] Hospital & Brentwood HospitalRBC Auto (Bld) [#/Vol]Ordered By: Sandip Bunting on 38-46-3751FUM (Bld) [#/Vol]Erythrocytes [#/volume] in Blood by Automated countLow3.90-5.60[facility] HospitalWBC Auto (Bld) [#/Vol]Ordered By: Sandip Bunting on 70-84-5052LIN (Bld) [#/Vol]Leukocytes [#/volume] in Blood by Automated count4.1-10.5FMercy Health – The Jewish Hospital B-Type Natriuretic Peptideon 58-18-0520Tdpmukypbwz peptide B (Bld) [Mass/Vol] 269.0 pg/mLHigh5-100The Firsthealth Physician GroupComment on above:Result Comment: PERFORMED BY:[facility] [place], [place] [phone] MEDICAL DIRECTORJAJA CATES M.D. Performed By: #### CBC, BNP, ESR, CRP ####[place] [address] [place] [address] USABasophils Auto (Bld) [#/Vol]Ordered By: Sandip Bunting on 99-68-8256Qrvejflhk (Bld) [#/Vol]Automated basophil count0.0-0.2 [facility] HospitalBasophils/100 WBC Auto (Bld)Ordered By: Sandip Bunting on 06-07-1461Wggtargqu/100 WBC (Bld)Automated basophil %.[facility] HospitalC reactive protein [Mass/volume] in Serum or Plasma Ordered By: Sandip Aguirre on 14-20-2986FAY [Mass/Vol]C reactive protein [Mass/volume] in Serum or PlasmaHigh0.0-0.5FMercy Health – The Jewish HospitalC- Reactive Proteinon 29-80-1512I-Reactive Protein4.6 mg/dLHigh0.0-0.5The Firsthealth Physician GroupComment on above:Result Comment: PERFORMED BY:[address] [place], [place] [phone] MEDICAL DIRECTORJAJA CATES M.D.Performed By: #### CBC, BNP, ESR, CRP ####[place] [id number] [facility] Complete Blood Count Auto Diffon 68-70-0762Oymmjhpnb (Bld) [#/Vol]0.1 10*3/uL Normal0.0-0.2The Firsthealth Physician GroupComment on above:Performed By: #### CBC, BNP, ESR, CRP ####[address] [address] USABasophils/100 WBC (Bld)1.3 %Normal.[facility] Comment on above:Performed By: #### CBC, BNP, ESR, CRP ####[address] [address] USAEosinophils (Bld) [#/Vol]0.4 10*3/uLNormal0.0-0.45The Firsthealth Physician GroupComment on above:Performed By: #### CBC, BNP, ESR, CRP ####[place] [address] USAEosinophils/100 WBC (Bld)7.5 %Normal.The Firsthealth Physician GroupComment on above:Performed By: #### CBC, BNP, ESR, CRP ####[place] [id number] [facility] Erythrocyte distribution width (RBC) [Ratio]17.6 %High12.0-14.8The Firsthealth Physician GroupComment on above:Performed By: #### CBC, BNP, ESR, CRP ####[place] [address] [place] Hematocrit (Bld) [Volume fraction]26.4 %Low38.8-50.0The Firsthealth Physician GroupComment on above:Performed By: #### CBC, BNP, ESR, CRP ####[place] [address] USAHemoglobin (Bld) [Mass/Vol]8.8 g/dLLow13.0-17.0The Firsthealth Physician GroupComment on above: Performed By: #### CBC, BNP, ESR, CRP ####[place] [address] USALymphocytes (Bld) [#/Vol]1.9 10*3/uLNormal 1.00-4.8The Firsthealth Physician GroupComment on above:Performed By: #### CBC, BNP, ESR, CRP ####[place] [address] USALymphocytes/100 WBC (Bld)35.3 %Normal.[facility] Comment on above:Performed By: #### CBC, BNP, ESR, CRP ####[address] StreetMCH (RBC) [Entitic mass]30.7 bjEwdcbl26.5-35.2The Firsthealth Physician GroupComment on above:Performed By: #### CBC, BNP, ESR, CRP ####[place] [address] USAMCV (RBC) [Entitic vol]92.5 wSMxsqjy01.5-101The Firsthealth Physician GroupComment on above:Performed By: #### CBC, BNP, ESR, CRP ####[place] [address] USAMean Corpuscular HGB Conc33.1 g/aSLnpydt82.5-35.6The Firsthealth Physician GroupComment on above:Performed By: #### CBC, BNP, ESR, CRP ####[place] [address] USAMonocytes (Bld) [#/Vol]0.4 10*3/uL Normal0.0-0.8The Firsthealth Physician GroupComment on above:Performed By: #### CBC, BNP, ESR, CRP ####[place] [address] USAMonocytes/100 WBC (Bld)7.1 %Normal.[facility] Comment on above:Performed By: #### CBC, BNP, ESR, CRP ####[place] [address] USANeutrophils (Bld) [#/Vol]2.6 10*3/uLNormal1.8-7.7The Firsthealth Physician GroupComment on above:Performed By: #### CBC, BNP, ESR, CRP ####[place] [address] USANeutrophils/100 WBC (Bld)48.8 %Normal.The Firsthealth Physician GroupComment on above:Performed By: #### CBC, BNP, ESR, CRP ####[place] [address] USANRBC% 0.1 /100{WBC}Normal0-0.5The Firsthealth Physician GroupComment on above:Performed By: #### CBC, BNP, ESR, CRP ####[place] [address] USAPlatelet mean volume (Bld) [Entitic vol]7.3 fLNormal 6.6-10.1The Firsthealth Physician GroupComment on above:Performed By: #### CBC, BNP, ESR, CRP ####[place] [address] USAPlatelets (Bld) [#/Vol]238 10*3/iJDqasog635-176Xyf Firsthealth Physician GroupComment on above:Performed By: #### CBC, BNP, ESR, CRP ####[place] [address] [place] [address] USARBC (Bld) [#/Vol]2.85 10*6/uLLow3.90-5.60The Firsthealth Physician GroupComment on above:Performed By: #### CBC, BNP, ESR, CRP ####[address] [address] USAWBC (Bld) [#/Vol]5.4 10*3/uLNormal4.1-10.5The Firsthealth Physician GroupComment on above:Performed By: #### CBC, BNP, ESR, CRP ####[address] [address] [place] Eosinophils Auto (Bld) [#/Vol]Ordered By: Sandip Bunting on 04-30-2024 Eosinophils (Bld) [#/Vol]Automated eosinophil count0.0-0.45[facility] HospitalEosinophils/100 WBC Auto (Bld)Ordered By: Sandip Bunting on 76-22-9683Rwaemkqacyh/100 WBC (Bld)Automated eosinophil %.[facility] HospitalErythrocyte Sedimentation Rateon 97-10-3317KRD (Bld) [Velocity]57 mm/hHigh0-19The Firsthealth Physician GroupComment on above:Result Comment: PERFORMED BY:[address] [place], [place] [phone] MEDICAL DIRECTORJAJA CATES M.D. Performed By: #### CBC, BNP, ESR, CRP ####[address] [address] USAErythrocyte distribution width Auto (RBC) [Ratio]Ordered By: Sandip Bunting on 63-22-5921Lqwwwzjsujc distribution width (RBC) [Ratio]Erythrocyte distribution width [Ratio] by Automated countHigh 12.0-14.8[facility] HospitalErythrocyte sedimentation rate by Photometric methodOrdered By: Sandip Bunting on 91-54-8364QQY Photometric method (Bld) [Velocity]Erythrocyte sedimentation rate by Photometric methodHigh0-19 [facility] HospitalHematocrit Auto (Bld) [Volume fraction]Ordered By: Sandip Bunting on 65-69-9273Txntjgeinp (Bld) [Volume fraction]Hematocrit [Volume Fraction] of Blood by Automated faeejYwx43.8-50.0[facility] HospitalHemoglobin [Mass/volume] in BloodOrdered By: Sandip Bunting on 74-54-1433Yqvdqqhblh (Bld) [Mass/Vol]Hemoglobin [Mass/volume] in BloodLow 13.0-17.0[facility] HospitalLeukocytes [#/volume] corrected for nucleated erythrocytes in Blood by Automated counOrdered By: Sandip Bunting on 57-26-3139GAZ corrected for nucl RBC Auto (Bld) [#/Vol]Leukocytes [#/volume] corrected for nucleated erythrocytes in Blood by Automated coun4.1-10.5FMercy Health – The Jewish HospitalLymphocytes Auto (Bld) [#/Vol]Ordered By: Sandip Bunting on 54-89-2979Wfqdgwgjdwq (Bld) [#/Vol]Lymphocytes [#/volume] in Blood by Automated count1.00-4.8[facility] HospitalLymphocytes/100 WBC Auto (Bld)Ordered By: Sandip Bunting on 73-16-6155Zbkivxfpbjv/100 WBC (Bld) Lymphocytes/100 leukocytes in Blood by Automated count.[facility] HospitalH Auto (RBC) [Entitic mass]Ordered By: Sandip Bunting on 58-43-6354KEY (RBC) [Entitic mass]MCH [Entitic mass] by Automated count27.5-35.2 [facility] HospitalMCHC Auto (RBC) [Mass/Vol]Ordered By: Sandip Bunting on 66-61-1881TCPV (RBC) [Mass/Vol]MCHC [Mass/volume] by Automated count 32.5-35.6FMercy Health – The Jewish HospitalMCV Auto (RBC) [Entitic vol]Ordered By: Sandip Bunting on 49-56-4877MPQ (RBC) [Entitic vol]MCV [Entitic volume] by Automated count83.5-101[facility] HospitalMonocytes Auto (Bld) [#/Vol]Ordered By: Sandip Bunting on 01-02-4535Jexaktvho (Bld) [#/Vol]Automated blood monocyte count0.0-0.8[facility] HospitalMonocytes/100 WBC Auto (Bld)Ordered By: Sandip Bunting on 18-08-3930Ypyocdsbv/100 WBC (Bld) Automated monocyte %.[facility] HospitalNatriuretic peptide B [Mass/Vol]Ordered By: Sandip Bunting on 04-47-1661Uhhdputnvev peptide B (Bld) [Mass/Vol]BNP ser/plasHigh5-100[facility] HospitalNeutrophils Auto (Bld) [#/Vol]Ordered By: Sandip Bunting on 90-53-6356Iuucpcuwtez (Bld) [#/Vol] Neutrophils [#/volume] in Blood by Automated count1.8-7.7FMercy Health – The Jewish HospitalNeutrophils/100 WBC Auto (Bld)Ordered By: Sandip Bunting on 51-95-0021Rjaicrltwac/100 WBC (Bld)Automated neutrophil %.[facility] HospitalNucleated erythrocytes [Presence] in Blood by Automated count Ordered By: Sandip Bunting on 03-13-6644Wdqvjgarp RBC Auto Ql (Bld)Nucleated erythrocytes [Presence] in Blood by Automated count0-0.5FMercy Health – The Jewish HospitalPlatelet mean volume Auto (Bld) [Entitic vol]Ordered By: Sandip Bunting on 25-14-6199Idmnorpo mean volume (Bld) [Entitic vol]Platelet mean volume [Entitic volume] in Blood by Automated count6.6-10.1FMercy Health – The Jewish HospitalPlatelets Auto (Bld) [#/Vol]Ordered By: Sandip Bunting on 68-68-7344Oszodlfor (Bld) [#/Vol]Platelets [#/volume] in Blood by Automated awxcq512-765EzixjvctwSuburban Community Hospital & Brentwood HospitalRBC Auto (Bld) [#/Vol]Ordered By: Sandip Bunting on 56-44-9317TBZ (Bld) [#/Vol]Erythrocytes [#/volume] in Blood by Automated countLow3.90-5.60[facility] HospitalWBC Auto (Bld) [#/Vol]Ordered By: Sandip Bunting on 22-42-2665BGU (Bld) [#/Vol]Leukocytes [#/volume] in Blood by Automated count4.1-10.5FMercy Health – The Jewish Hospital B-Type Natriuretic Peptideon 85-82-7217Mqklzwybeuq peptide B (Bld) [Mass/Vol] 216.0 pg/mLHigh5-100The Firsthealth Physician GroupComment on above:Result Comment: PERFORMED BY:[place] [address] [place], [place] [phone] MEDICAL DIRECTORJAJA CATES M.D. Performed By: #### BNP, CRP, CBC, ESR ####[facility] [address] [place] [address] USABasophils Auto (Bld) [#/Vol]Ordered By: Sandip Bunting on 63-53-9000Zpxbulhra (Bld) [#/Vol]Automated basophil count0.0-0.2 [facility] HospitalBasophils/100 WBC Auto (Bld)Ordered By: Sandip Bunting on 84-86-3268Rvwplofoz/100 WBC (Bld)Automated basophil %.[facility] HospitalC reactive protein [Mass/volume] in Serum or Plasma Ordered By: Sandip Bunting on 18-83-2160CFL [Mass/Vol]C reactive protein [Mass/volume] in Serum or PlasmaHigh0.0-0.5FMercy Health – The Jewish HospitalC- Reactive Proteinon 15-97-6172Y-Reactive Protein6.7 mg/dLHigh0.0-0.5The Firsthealth Physician GroupComment on above:Result Comment: PERFORMED BY:[place] [address] [place], [place] [phone] MEDICAL DIRECTORJAJA CATES M.D.Performed By: #### BNP, CRP, CBC, ESR ####[facility] [address] [place] [address] [facility] Complete Blood Count Auto Diffon 12-45-1756Uknmywonh (Bld) [#/Vol]0.1 10*3/uL Normal0.0-0.2The Firsthealth Physician GroupComment on above:Performed By: #### BNP, CRP, CBC, ESR ####[place] [address] USABasophils/100 WBC (Bld)0.9 %Normal.[facility] Comment on above:Performed By: #### BNP, CRP, CBC, ESR ####[place] [address] USAEosinophils (Bld) [#/Vol]0.5 10*3/uLHigh0.0-0.45The Firsthealth Physician GroupComment on above:Performed By: #### BNP, CRP, CBC, ESR ####[place] [address] USAEosinophils/100 WBC (Bld)6.4 %Normal.The Firsthealth Physician GroupComment on above:Performed By: #### BNP, CRP, CBC, ESR ####[address] Erythrocyte distribution width (RBC) [Ratio]17.0 %High12.0-14.8The Firsthealth Physician GroupComment on above:Performed By: #### BNP, CRP, CBC, ESR ####[place] [address] [place] Hematocrit (Bld) [Volume fraction]26.9 %Low38.8-50.0The Firsthealth Physician GroupComment on above:Performed By: #### BNP, CRP, CBC, ESR ####[place] [address] USAHemoglobin (Bld) [Mass/Vol]9.0 g/dLLow13.0-17.0The Firsthealth Physician GroupComment on above: Performed By: #### BNP, CRP, CBC, ESR ####[place] [address] USALymphocytes (Bld) [#/Vol]2.1 10*3/uLNormal 1.00-4.8The Firsthealth Physician GroupComment on above:Performed By: #### BNP, CRP, CBC, ESR ####[place] [id number] USALymphocytes/100 WBC (Bld)29.5 %Normal.[facility] Comment on above:Performed By: #### BNP, CRP, CBC, ESR ####[place] [id number] [facility] [place] (RBC) [Entitic mass]31.4 mtSchwwt69.5-35.2The Firsthealth Physician GroupComment on above:Performed By: #### BNP, CRP, CBC, ESR ####[place] [id number] [facility] ENIDV (RBC) [Entitic vol]93.7 vNWgnfza42.5-101The Firsthealth Physician GroupComment on above:Performed By: #### BNP, CRP, CBC, ESR ####[place] [address] USAMean Corpuscular HGB Conc33.5 g/mQVezqqv81.5-35.6The Firsthealth Physician GroupComment on above:Performed By: #### BNP, CRP, CBC, ESR ####[place] [address] USAMonocytes (Bld) [#/Vol]0.7 10*3/uL Normal0.0-0.8The Firsthealth Physician GroupComment on above:Performed By: #### BNP, CRP, CBC, ESR ####[place] [address] USAMonocytes/100 WBC (Bld)9.2 %Normal.[facility] Comment on above:Performed By: #### BNP, CRP, CBC, ESR ####[place] [address] USANeutrophils (Bld) [#/Vol]3.9 10*3/uLNormal1.8-7.7The Firsthealth Physician GroupComment on above:Performed By: #### BNP, CRP, CBC, ESR ####[place] [address] USANeutrophils/100 WBC (Bld)54.0 %Normal.The Firsthealth Physician GroupComment on above:Performed By: #### BNP, CRP, CBC, ESR ####[place] [address] USANRBC% 0.1 /100{WBC}Normal0-0.5The Firsthealth Physician GroupComment on above:Performed By: #### BNP, CRP, CBC, ESR ####[place] [address] USAPlatelet mean volume (Bld) [Entitic vol]7.8 fLNormal 6.6-10.1The Firsthealth Physician GroupComment on above:Performed By: #### BNP, CRP, CBC, ESR ####[place] [address] USAPlatelets (Bld) [#/Vol]249 10*3/pEQryqtb990-423Psw Firsthealth Physician GroupComment on above:Performed By: #### BNP, CRP, CBC, ESR ####[place] [address] USARBC (Bld) [#/Vol]2.87 10*6/uLLow3.90-5.60The Firsthealth Physician GroupComment on above:Performed By: #### BNP, CRP, CBC, ESR ####[place] [address] USAWBC (Bld) [#/Vol]7.2 10*3/uLNormal4.1-10.5The Firsthealth Physician GroupComment on above:Performed By: #### BNP, CRP, CBC, ESR ####[place] [address] [place] Eosinophils Auto (Bld) [#/Vol]Ordered By: Sandip Aguirre on 04-23-2024 Eosinophils (Bld) [#/Vol]Automated eosinophil countHigh0.0-0.45[facility] HospitalEosinophils/100 WBC Auto (Bld)Ordered By: Sandip Bunting on 94-49-9360Xirwuekijvx/100 WBC (Bld)Automated eosinophil %.[facility] HospitalErythrocyte Sedimentation Rateon 59-16-1971DAS (Bld) [Velocity]95 mm/hHigh0-19The Firsthealth Physician GroupComment on above:Result Comment: PERFORMED BY:[facility] [place], [place] [phone] MEDICAL DIRECTORJAJA CATES M.D. Performed By: #### BNP, CRP, CBC, ESR ####[facility] [place] [address] [facility] M[facility]ICOErythrocyte distribution width Auto (RBC) [Ratio]Ordered By: Sandip Bunting on 80-71-4139Ywhthxpkcgx distribution width (RBC) [Ratio]Erythrocyte distribution width [Ratio] by Automated countHigh 12.0-14.8[facility] HospitalErythrocyte sedimentation rate by Photometric methodOrdered By: Sandip Bunting on 66-89-0542BMC Photometric method (Bld) [Velocity]Erythrocyte sedimentation rate by Photometric methodHigh0-19 [facility] HospitalHematocrit Auto (Bld) [Volume fraction]Ordered By: Sandip Bunting on 81-76-2228Sixhvpslah (Bld) [Volume fraction]Hematocrit [Volume Fraction] of Blood by Automated fekybFtz22.8-50.0[facility] HospitalHemoglobin [Mass/volume] in BloodOrdered By: Sandip Bunting on 73-22-4839Uutyvvtizb (Bld) [Mass/Vol]Hemoglobin [Mass/volume] in BloodLow 13.0-17.0[facility] HospitalLeukocytes [#/volume] corrected for nucleated erythrocytes in Blood by Automated counOrdered By: Sandip Bunting on 19-46-2673KAP corrected for nucl RBC Auto (Bld) [#/Vol]Leukocytes [#/volume] corrected for nucleated erythrocytes in Blood by Automated coun4.1-10.5FMercy Health – The Jewish HospitalLymphocytes Auto (Bld) [#/Vol]Ordered By: Sandip Bunting on 31-25-8565Edzdrcztstx (Bld) [#/Vol]Lymphocytes [#/volume] in Blood by Automated count1.00-4.8[facility] HospitalLymphocytes/100 WBC Auto (Bld)Ordered By: Sandip Bunting on 99-84-1552Sgnzusswtma/100 WBC (Bld) Lymphocytes/100 leukocytes in Blood by Automated count.[facility] HospitalH Auto (RBC) [Entitic mass]Ordered By: Sandip Bunting on 96-20-6128PYM (RBC) [Entitic mass]MCH [Entitic mass] by Automated count27.5-35.2 [facility] HospitalHC Auto (RBC) [Mass/Vol]Ordered By: Sandip Bunting on 53-19-5531XAEL (RBC) [Mass/Vol]MCHC [Mass/volume] by Automated count 32.5-35.6FMercy Health – The Jewish HospitalMCV Auto (RBC) [Entitic vol]Ordered By: Sandip Bunting on 03-64-6268CDM (RBC) [Entitic vol]MCV [Entitic volume] by Automated count83.5-101[facility] HospitalMonocytes Auto (Bld) [#/Vol]Ordered By: Sandip Bunting on 52-79-8901Emniinjwo (Bld) [#/Vol]Automated blood monocyte count0.0-0.8[facility] HospitalMonocytes/100 WBC Auto (Bld)Ordered By: Sandip Bunting on 20-71-1709Zxfyzjstl/100 WBC (Bld) Automated monocyte %.[facility] HospitalNatriuretic peptide B [Mass/Vol]Ordered By: Sandip Bunting on 95-18-0723Msuwldyzfxy peptide B (Bld) [Mass/Vol]BNP ser/plasHigh5-100[facility] HospitalNeutrophils Auto (Bld) [#/Vol]Ordered By: Sandip Bunting on 52-41-3340Vepujzjewkq (Bld) [#/Vol] Neutrophils [#/volume] in Blood by Automated count1.8-7.7FMercy Health – The Jewish HospitalNeutrophils/100 WBC Auto (Bld)Ordered By: Sandip Bunting on 51-82-2349Kjosgtrazll/100 WBC (Bld)Automated neutrophil %.[facility] CenterNucleated erythrocytes [Presence] in Blood by Automated count Ordered By: Sandip Bunting on 60-13-3510Idpnhrmdl RBC Auto Ql (Bld)Nucleated erythrocytes [Presence] in Blood by Automated count0-0.5FMercy Health – The Jewish HospitalPlatelet mean volume Auto (Bld) [Entitic vol]Ordered By: Sandip Bunting on 69-96-8402Netdyzhf mean volume (Bld) [Entitic vol]Platelet mean volume [Entitic volume] in Blood by Automated count6.6-10.1FMercy Health – The Jewish HospitalPlatelets Auto (Bld) [#/Vol]Ordered By: Sandip Bunting on 55-97-3841Mrdftdaxa (Bld) [#/Vol]Platelets [#/volume] in Blood by Automated -714YhknbktgzSuburban Community Hospital & Brentwood HospitalRBC Auto (Bld) [#/Vol]Ordered By: Sandip Bunting on 37-95-9592WKS (Bld) [#/Vol]Erythrocytes [#/volume] in Blood by Automated countLow3.90-5.60[facility] HospitalWBC Auto (Bld) [#/Vol]Ordered By: Sandip Bunting on 33-60-3828IOY (Bld) [#/Vol]Leukocytes [#/volume] in Blood by Automated count4.1-10.5FMercy Health – The Jewish Hospital .eGFRon 51-16-5225Diuhohpgc GFR57 mL/min/1.73m?Low>=60[facility] NorthComment on above:Result Comment: [facility] Laboratories have implemented the eGFR [...] Age = yearsPerformed By: #### MG #### [address] [address]Jcubn Metabolic Profileon 92-21-0710Mbhcv gap [Moles/Vol]8 mmol/LNormal4-12[facility] NorthComment on above:Performed By: #### CD:[id number] #### [address] [address]Lbfxqtv [Mass/Vol]8.6 mg/dLNormal8.5-10.3BOhioHealth Marion General HospitalComment on above:Performed By: #### CD:[id number] #### [address] [address]Byjnhsvc [Moles/Vol]96 mmol/UVxg63-323PeiqedcmnSelect Medical Specialty Hospital - [place] NorthComment on above:Performed By: #### CD:[id number] #### [address] [address] [Moles/Vol]27 mmol/OGpzfpf73-50WwmkbmgezSelect Medical Specialty Hospital - [place] NorthComment on above:Performed By: #### CD:[id number] #### [address] [address]Cvvsazksze [Mass/Vol]1.25 mg/dLHigh0.61-1.24[facility] NorthComment on above:Performed By: #### CD:[id number] #### [address] [address]Iclhzdb [Mass/Vol]83 mg/mVFupvdq33-36OcgweqjcySelect Medical Specialty Hospital - [place] NorthComment on above:Performed By: #### CD:[id number] #### [address] [address]Jihsbxkqs [Moles/Vol]3.7 mmol/LNormal3.4-4.8BOhioHealth Marion General HospitalComment on above:Performed By: #### CD:[id number] #### [address] [address]Gyaagd [Moles/Vol]131 mmol/DIqk076-246AgvomwnsqSelect Medical Specialty Hospital - [place] NorthComment on above:Performed By: #### CD:[id number] #### [address] [address]Bttv nitrogen [Mass/Vol]19 mg/dLNormal8-26[facility] NorthComment on above:Performed By: #### CD:[id number] #### [address] [address]Trso nitrogen/Creatinine [Mass ratio]15.2 mg/kdKinztu31.0-20.0 [facility] NorthComment on above:Performed By: #### CD:[id number] #### [address] [address]N Bldon 04-20-2024 Bld Final No growth at 5 days.NormalSelect Medical Specialty Hospital - Cincinnati NorthComment on above: Performed By: #### BLDC ####[address] [address]Eqhtwttal By: #### MARISELA #### [address] [address]C Sterile BSon 04-20-2024 Sterile BS Final Light Growth of Pseudomonas aeruginosa isolated ORGANISM PA SUSCEPTIBILITY ORGANISM ID: 1 ANTIBIOTIC INTERPRETATION BELLA STATUS POS Pseudomonas aeruginosa Ceftazidime S 4 V Ciprofloxacin I 1 V Levofloxacin R 4 V Meropenem S 1 V Piperacillin/Tazobactam S 16 V SUSCEPTIBILITY ORGANISM ID: 1 ANTIBIOTIC INTERPRETATION BELLA STATUS POS Pseudomonas aeruginosa Cefepime S VNormalSelect Medical Specialty Hospital - [place] NorthComment on above:Performed By: #### :[id number] #### [address] [address]ABQ w/ Diffon 67-25-4787Crihxzstfhk distribution width (RBC) [Ratio]17.6 %High11.6-14.8BOhioHealth Marion General HospitalComment on above: Performed By: #### CBC ####[address] [address]Hmdunjpjil (Bld) [Volume fraction]27.2 %Low41.0-53.0 [facility] [place] NorthComment on above:Performed By: #### CBC ####[address] [address]Rjpwozcmtd (Bld) [Mass/Vol]9.1 g/dLLow13.5-17.5BOhioHealth Marion General HospitalComment on above:Performed By: #### CBC ####[address] [address]FSO (RBC) [Entitic mass]31.1 dlJlsxma08.0-35.0[facility] [place] NorthComment on above:Performed By: #### CBC ####[address] [address]ZKUN00.5 %Twmhfs64.0-37.0 [facility] [place] NorthComment on above:Performed By: #### CBC ####27 [address] [address]XYT (RBC) [Entitic vol]92.9 gMWzdubz14.0-100.0[facility] - [facility] NorthComment on above:Performed By: #### CBC ####[address] [address]Sbchttdm889 x10*3/bnKQzliaq798-718AguwcwwrqSelect Medical Specialty Hospital - Cincinnati NorthComment on above:Performed By: #### CBC ####[address] [address]Roxyhjgs mean volume (Bld) [Entitic vol]7.0 fL Normal6.7-10.6BOhioHealth Marion General HospitalComment on above:Performed By: #### CBC ####[address] [address]ZNA1.93 x10*6/mcLLow4.30-5.80[facility] - [facility] NorthComment on above:Performed By: #### CBC ####[address] [address]NYA9.0 x10*3/mcLNormal4.5-11.0[facility] NorthComment on above:Performed By: #### CBC ####[address] [address]Uxuqlzwgnj Progress Noteon 56-20-2095Lgiolmnrpv Progress NoteSubjective PCP: Opal Ga DO ([place], [place]) Cardio: [facility] [place] [place] 83M with permanent AF, CHF, CKD, hypercholesterolemia transferred from [facility] for continued treatment of lower extremity edema and perioperative cardiology evaluation. Lower extremity edema suspected of being more related to chronic lymphedema than decompensated heart failure. Interval History: - POD #3 lumbar I&D with wound closure finding a small seroma - No significant events overnight - Fluid balance -3.3 L yesterday and -7.5 L since admission to [facility] (-4.7 L at [facility] prior to transfer) - Denies chest pain, dyspnea, palpitations, or lightheadedness Cardiac Testing Echocardiography > 04/13/24: (Limited) EF 45-50%, mild RV enlargement with mildly reduced systolic function, marked LAE, moderate MARCIA ([facility]) Objective Vitals & Measurements T: 36.7 ?C [...] Zofran, 4 mg= 2 mL, IV Push, l2cc-Xecxqmgs Times, PRN Assessment/Plan 1. Chronic HFmrEF (systolic [...] a cardiac perspective. Follow up with primary butt maker in [place], [place], after discharge. Will sign off. Medical Decision Making Number of Problems Addressed: Moderate (2 stable chronic problems [CHF, AF]) Data Reviewed/Analyzed: Moderate (reviewed results of at least 3 unique lab tests) Risk of Complications, Morbidity, or Mortality: Moderate (prescription drug management) Electronically signed by Frankie Dallas DO 04/20/24 13:45 [facility] Dietary Progress Noteon 01-94-5424Lqcszhx Progress NotePt. screened for LOS. Pt. with [...] gain x5 days since admit (+3.3kg/4.0%). Weight eflecia could be r/t good PO intakes and/or [...] Electronically signed by Dolly Escobedo 04/20/24 13:26 ESTNormalBlAdena Fayette Medical CenterDiff Autoon 07-00-9371Peml Absolute0.0 x10*3/mcLNormal0.0-0.2BOhioHealth Marion General Hospital Comment on above:Performed By: #### .Automated Diff ####[address] [address]Dofoougdw/100 WBC (Bld)0.6 % Normal0.0-1.2BOhioHealth Marion General HospitalComment on above:Performed By: #### .Automated Diff ####[address] [address]Upv Absolute0.5 x10*3/mcLHigh0.0-0.4BCity Hospital SystemComment on above:Performed By: #### .Automated Diff ####[address] [address]Kpmlydahbiu/100 WBC (Bld)8.7 %High0.0-6.1 [facility] SystemComment on above:Performed By: #### .Automated Diff ####[address] [address]Hfgvs Absolute1.9 x10*3/mcLNormal1.0-4.8BCity Hospital SystemComment on above:Performed By: #### .Automated Diff ####[address] [address]Rgdikulhiuf/100 WBC (Bld)32.3 %Uaxpxc72.2-40.8 [facility] NorthComment on above:Performed By: #### .Automated Diff ####[address] [address]Kqfo Absolute0.5 x10*3/mcLNormal0.3-1.1BCity Hospital SystemComment on above:Performed By: #### .Automated Diff ####[address] [address]Zneqosbnr/100 WBC (Bld)9.0 %Normal4.7-13.9BCity Hospital SystemComment on above:Performed By: #### .Automated Diff ####[address] [address]Gewxyk Absolute3.0 x10*3/mcLNormal1.8-7.7BCity Hospital SystemComment on above:Performed By: #### .Automated Diff ####[address] [address]Sonbpn Auto49.4 %Luxyqu49.2-70.8BOhioHealth Marion General HospitalComment on above:Performed By: #### .Automated Diff ####[facility] [place], [place] [address]Bxtvzwymt Clinical Summary on 25-68-2731Ebbafmyjr Clinical SummaryBlColumbia Basin Hospital [address] [place] [address] [phone] [address] [phone] Clinical Summary Person Information Name: Tavo Wallis Age: 83 Years : 1940 Sex: Male PCP: Tavo Mcintyre DO Marital Status: Phone: PCP: Race: White Ethnicity: Not or Language: [place] Visit Id: Visit Reason: CHF exacerbation Speciality: Acuity: Enc Type: Inpatient Med Service: Medicine-General Arrival: 04/15/2024 03:52:56 Discharge: Dispo Type: Address: [address] [id number] Preferred Communication Mode: Preferred Language: [place] Discharge Diagnosis: 1:Postoperative wound infection; 2:Dehiscence of surgical wound; 3:Atrial fibrillation, permanent; 4:Current use of anticoagulants; 5:Lymphedema; 6:Chronic systolic heart failure; 7:Postoperative urinary retention; 8:Preoperative cardiovascular examination Discharged To: long-term facility Mode of Discharge Transportation: Home Treatments: Devices/Equipment: Professional Skilled Services: Special Services and Community Resources: Discharge Orders: Activity Restrictions Follow up 04/20/24 13:16:00 EST, Provider: Tye Pompa MD, 1 to 2 weeks Follow up 04/20/24 13:17:00 EST, Provider: [facility] [place], Randi [place], 1 week Follow up with Primary Care Provider (PCP) 04/18/24 11:08:00 EST, 1 to 2 weeks Senior [facility] Facility Certification 04/18/24 11:08:00 EST, Skilled, I certify halfway facility stay is anticipated to be LESS [...] range between ( 27.2 and 40.8 ) [place] Auto: 9.0 % -- Normal range between [...] range between ( 41.0 and 53.0 ) [place] Absolute: 0.5 x10 MCH: 31.1 pg -- Normal range between ( 27.0 and 35.0 ) Neutro Absolute: 3.0 x10 Hgb: 9.1 g/dL -- Normal range between ( 13.5 and 17.5 ) Me (more content not included)...NormalSelect Medical Specialty Hospital - Cincinnati NorthMagnesiumon 09-93-8822Dyzknkwtj [Mass/Vol]2.1 mg/dLNormal1.7-2.4BOhioHealth Marion General HospitalComment on above:Performed By: #### MG #### [address] [address]Ivxpvbjesk Progress Noteon 71-90-9492Jhnypcndpw Progress Note Subjective POD#1 lumbar I&D. Patient [...] Zofran, 4 mg= 2 mL, IV Push, a8wh-Xbljgcsd Times, PRN Assessment/Plan 1. Postoperative wound infection [...] signed by Mani Hannon PA-C 04/20/24 08:08 [facility] Progress Note-Nurseon 35-83-2355Uyvkgfec Note-Auumz40d 10cm single lumen powerglide midline catheter inserted in the left upper arm. Sterile field main tained. no complications noted. Patient tolerated well. lot # [id number] Electronically signed by Jonelle Wall 04/20/24 11:55 [facility].eGFRon 07-99-3975Ipxkywfko GFR52 mL/min/1.73m?Low>=60[facility] Comment on above:Result Comment: [facility] Laboratories have implemented the eGFR [...] 1 Age = yearsPerformed By: #### EGFR ####[address] [address]Pjugd Metabolic Profileon 22-69-5501Lwugo gap [Moles/Vol] 6 mmol/LNormal4-12[facility] - [facility] NorthComment on above:Performed By: #### MG #### [address] [address]Eccajnq [Mass/Vol]8.5 mg/dLNormal8.5-10.3BOhioHealth Marion General HospitalComment on above:Performed By: #### MG #### [address] [address]Hqekeumg [Moles/Vol]97 mmol/QYov29-300UrjchcjztSelect Medical Specialty Hospital - Cincinnati NorthComment on above:Performed By: #### MG #### [address] [address]TT9 [Moles/Vol]27 mmol/ARanwsz47-23NsavojrusSelect Medical Specialty Hospital - Cincinnati NorthComment on above:Performed By: #### MG #### [address] [address]Efrkxriqnj [Mass/Vol]1.37 mg/dLHigh0.61-1.24[facility] - [facility] NorthComment on above:Performed By: #### MG #### [address] [address]Lclbafb [Mass/Vol]94 mg/eGVcmayx34-90HqrqaaowtSelect Medical Specialty Hospital - Cincinnati NorthComment on above:Performed By: #### MG #### [address] [address]Avjsbuplw [Moles/Vol]3.8 mmol/LNormal3.4-4.8BOhioHealth Marion General HospitalComment on above:Performed By: #### MG #### [address] [address]Thrbae [Moles/Vol]130 mmol/OGtw660-239JupgvmabxSelect Medical Specialty Hospital - Cincinnati NorthComment on above:Performed By: #### MG #### [address] [address]Rzay nitrogen [Mass/Vol]20 mg/dLNormal8-26[facility] NorthComment on above:Performed By: #### MG #### [address] [address]Zfbu nitrogen/Creatinine [Mass ratio]14.6 mg/wlPqebej35.0-20.0 [facility] - [facility] NorthComment on above:Performed By: #### MG #### [address] [address]T ANAon 04-19-2024 KG Final No anaerobic growth after 72 hrs.NormalSelect Medical Specialty Hospital - Cincinnati NorthComment on above:Performed By: #### CD:[id number] #### [address] [address]LIR w/ Diffon 11-22-6899Mmayiauatjk distribution width (RBC) [Ratio]18.1 %High11.6-14.8BOhioHealth Marion General HospitalComment on above: Performed By: #### CD:[id number] #### [address] [address]Ttmabgcbjo (Bld) [Volume fraction]27.4 %Low41.0-53.0[facility] - [facility] NorthComment on above:Performed By: #### CD:[id number] #### [address] [address]Cqzjocelhl (Bld) [Mass/Vol]9.3 g/dLLow13.5-17.5BOhioHealth Marion General HospitalComment on above:Performed By: #### CD:[id number] #### [address] [address]ANZ (RBC) [Entitic mass]31.4 exGvnyyu16.0-35.0[facility] NorthComment on above:Performed By: #### CD:[id number] #### [address] [address]JOJA16.0 %Iwrvyg72.0-37.0[facility] NorthComment on above:Performed By: #### CD:[id number] #### [address] [address]BTR (RBC) [Entitic vol]92.4 nOVbkizh01.0-100.0[facility] NorthComment on above:Performed By: #### CD:[id number] #### [address], [place] [address]Kdsbqbam074 x10*3/wgFKcxles786-813UxwguebdaSelect Medical Specialty Hospital - Cincinnati NorthComment on above:Performed By: #### CD:[id number] #### [address] [address]Cmmisobg mean volume (Bld) [Entitic vol]7.2 fLNormal6.7-10.6 [facility] - Cincinnati NorthComment on above:Performed By: #### CD:[id number] #### [address], [place] [address]NSF5.96 x10*6/mcLLow4.30-5.80[facility] Comment on above:Performed By: #### CD:[id number] #### [address], [place] [address]HBV0.9 x10*3/mcLNormal4.5-11.0[facility] Comment on above:Performed By: #### CD:[id number] #### [address] [address]Qpjs Autoon 82-70-0046Nplq Absolute0.0 x10*3/mcLNormal0.0-0.2 [facility] NorthComment on above:Performed By: #### MG #### [address] [address]Esmxlzgjt/100 WBC (Bld)0.5 %Normal0.0-1.2BOhioHealth Marion General HospitalComment on above:Performed By: #### MG #### [address] [address]Yhw Absolute0.4 x10*3/mcLNormal0.0-0.4BOhioHealth Marion General HospitalComment on above:Performed By: #### MG #### [address] [address]Mctlcrhdmif/100 WBC (Bld)5.9 %Normal0.0-6.1BOhioHealth Marion General HospitalComment on above:Performed By: #### MG #### [address] [address]Bdhbf Absolute2.2 x10*3/mcLNormal1.0-4.8BOhioHealth Marion General HospitalComment on above:Performed By: #### MG #### [address] [address]Koxcejsropz/100 WBC (Bld)32.3 %Eetwcm75.2-40.8BOhioHealth Marion General HospitalComment on above:Performed By: #### MG #### [address] [address]Wwbz Absolute0.8 x10*3/mcLNormal0.3-1.1BOhioHealth Marion General HospitalComment on above:Performed By: #### MG #### [address] [address]Korqijqnj/100 WBC (Bld)11.2 %Normal4.7-13.9BOhioHealth Marion General HospitalComment on above:Performed By: #### MG #### [facility] [address] [place], [place] [address]Xplqfv Absolute3.5 x10*3/mcLNormal1.8-7.7BOhioHealth Marion General HospitalComment on above:Performed By: #### MG #### [facility] [address] [place], [place] [address]Borfwh Auto50.1 %Jxmqcb08.2-70.8BOhioHealth Marion General Hospital Comment on above:Performed By: #### MG #### [facility] [address] [place], [place] [address]Iyfgeefuro Disease Progress Noteon 69-48-0453Ogezpkxawu Disease Progress NoteSubjective Overall feeling okay. No [...] with patient's daughter who is power of trademark attorney. CRF filled out. Ordered: Midline Catheter Insertion 2. Dehiscence of surgical wound 3. Atrial fibrillation, permanent 4. Current use of anticoagulants 5. Lymphedema 6. Chronic systolic heart failure 7. Postoperative urinary retention 8. Preoperative cardiovascular examination Electronically signed by Tye Pompa MD 04/19/24 20:32 ESTNormalSelect Medical Specialty Hospital - Cincinnati NorthMagnesiumon 74-34-6588Jymadczxr [Mass/Vol]2.1 mg/dLNormal1.7-2.4 [facility] NorthComment on above:Performed By: #### CBC #### [place] [address].eGFRon 81-65-5335Buiugxmrn GFR48 mL/min/1.73m?Low>=60[facility] NorthComment on above:Result Comment: [facility] Laboratories have implemented the eGFR [...] Age = yearsPerformed By: #### CBC #### [address] [address]Rqyqh Metabolic Profileon 07-91-4961Ctdyb gap [Moles/Vol]8 mmol/LNormal4-12[facility] NorthComment on above:Performed By: #### MG #### [address] [address]Evlgstt [Mass/Vol]8.3 mg/dLLow8.5-10.3BOhioHealth Marion General HospitalComment on above:Performed By: #### MG #### [address] [address]Wxokbyfv [Moles/Vol]97 mmol/LTss85-000OgqpxoyeoSelect Medical Specialty Hospital - Cincinnati NorthComment on above:Performed By: #### MG #### [address] [address]KJ2 [Moles/Vol]27 mmol/LWdnycq98-40MmmziqtshSelect Medical Specialty Hospital - Cincinnati NorthComment on above:Performed By: #### MG #### [address] [address]Ahjtixywmy [Mass/Vol]1.45 mg/dLHigh0.61-1.24[facility] NorthComment on above:Performed By: #### MG #### [address] [address]Nxyodvk [Mass/Vol]87 mg/dHDxzlhr81-01LgxstxsohSelect Medical Specialty Hospital - Cincinnati NorthComment on above:Performed By: #### MG #### [address] [address]Xoooieysy [Moles/Vol]3.9 mmol/LNormal3.4-4.8BOhioHealth Marion General HospitalComment on above:Performed By: #### MG #### [address] [address]Gtqney [Moles/Vol]132 mmol/YDoi191-183UubthdexvSelect Medical Specialty Hospital - Cincinnati NorthComment on above:Performed By: #### MG #### [address] [address]Gqlx nitrogen [Mass/Vol]19 mg/dLNormal8-26[facility] NorthComment on above:Performed By: #### MG #### [address] [address]Jppd nitrogen/Creatinine [Mass ratio]13.1 mg/hmLkshvp68.0-20.0 [facility] NorthComment on above:Performed By: #### MG #### [address] [address]IJA w/ Diffon 14-83-9707Gzithdyusng distribution width (RBC) [Ratio]18.1 %High11.6-14.8BOhioHealth Marion General HospitalComment on above: Performed By: #### MG #### [address] [address]Bruiqdyhrh (Bld) [Volume fraction]26.8 %Low41.0-53.0[facility] NorthComment on above:Performed By: #### MG #### [address] [address]Ovyxhguvdx (Bld) [Mass/Vol]8.9 g/dLLow13.5-17.5BOhioHealth Marion General HospitalComment on above:Performed By: #### MG #### [address] [address]DIQ (RBC) [Entitic mass]30.6 oxYphjsm27.0-35.0[facility] NorthComment on above:Performed By: #### MG #### [address] [address]LCVA99.1 %Ecbcej10.0-37.0[facility] NorthComment on above:Performed By: #### MG #### [address] [address]FGS (RBC) [Entitic vol]92.6 bUNicbew60.0-100.0[facility] NorthComment on above:Performed By: #### MG #### [address] [address]Rhkjilvh726 x10*3/ikPPpeitd085-148XtuupxieoSelect Medical Specialty Hospital - Cincinnati NorthComment on above:Performed By: #### MG #### [address] [address]Nwbwrygz mean volume (Bld) [Entitic vol]6.9 fLNormal6.7-10.6 [facility] NorthComment on above:Performed By: #### MG #### [address] [address]TKG9.90 x10*6/mcLLow4.30-5.80[facility] Comment on above:Performed By: #### MG #### [address] [address]DJC0.5 x10*3/mcLNormal4.5-11.0[facility] Comment on above:Performed By: #### MG #### [address] [address]YEZva 67-35-5663ZAB32.60 mg/dLHigh0.00-0.75[facility] NorthComment on above:Result Comment: CRP measurement is useful for assessment of non-specific INFLAMMATORY RESPONSE to infection or injury AND is a sensitive MARKER of ACUTE INFLAMMATION including CARDIAC RISK ASSESSMENT. CARDIAC patients with elevated CRP are POTENTIALLY at a HIGHER RISK OF FUTURE CARDIAC EVENTS.Performed By: #### MG #### [address] [address]Txihlxzzxr Progress Noteon 33-89-2791Uctpckbovb Progress Note Subjective PCP: Opal Ga DO ([place], [place]) Cardio: Kathy Mcintyre DO ([facility] [place] [place] 83M with permanent AF, CHF, CKD, hypercholesterolemia transferred from [facility] for continued treatment of lower extremity edema and perioperative cardiology evaluation. Lower extremity edema suspected of being more related to chronic lymphedema than decompensated heart failure. Interval History: - POD #1 lumbar I&D with wound closure finding a small seroma - No significant events overnight - Fluid balance -1.3 L yesterday and -4.0 L since admission to [facility] (-4.7 L at [facility] prior to transfer) - Denies chest pain, dyspnea, palpitations, or lightheadedness Cardiac Testing Echocardiography > 04/13/24: (Limited) EF 45-50%, mild RV enlargement with mildly reduced systolic function, marked LAE, moderate MARCIA ([facility]) Objective Vitals & Measurements T: 38.0 ?C [...] Zofran, 4 mg= 2 mL, IV Push, q7xj-Sajbypgh Times, PRN Assessment/Plan 1. Chronic HFmrEF (systolic [...] signed by Frankie Dallas DO 04/18/24 07:58 [facility] Diff Autoon 11-84-7605Gogo Absolute0.1 x10*3/mcLNormal0.0-0.2BOhioHealth Marion General HospitalComment on above:Performed By: #### .Automated Diff ####[address] [address]Biutqnwkg/100 WBC (Bld)0.6 %Normal0.0-1.2BOhioHealth Marion General HospitalComment on above:Performed By: #### .Automated Diff ####[address] [address]Trp Absolute0.3 x10*3/mcLNormal0.0-0.4BOhioHealth Marion General HospitalComment on above:Performed By: #### .Automated Diff ####[address] [address]Ufnzboveseu/100 WBC (Bld)4.0 %Normal0.0-6.1 [facility] NorthComment on above:Performed By: #### .Automated Diff ####[address] [address]Jazml Absolute2.7 x10*3/mcLNormal1.0-4.8BOhioHealth Marion General HospitalComment on above:Performed By: #### .Automated Diff ####[address] [address]Oovdttygpkv/100 WBC (Bld)32.0 %Bivfaa70.2-40.8 [facility] NorthComment on above:Performed By: #### .Automated Diff ####[address] [address]Snxx Absolute0.8 x10*3/mcLNormal0.3-1.1BOhioHealth Marion General HospitalComment on above:Performed By: #### .Automated Diff ####[address] [address]Yqijchnzi/100 WBC (Bld)9.7 %Normal4.7-13.9BOhioHealth Marion General HospitalComment on above:Performed By: #### .Automated Diff ####[address] [place] [place], [place] [address]Pxwpiw Absolute4.5 x10*3/mcLNormal1.8-7.7BOhioHealth Marion General HospitalComment on above:Performed By: #### .Automated Diff ####[address] [address]Pjrfrr Auto53.7 %Ykzkwr55.2-70.8BOhioHealth Marion General HospitalComment on above:Performed By: #### .Automated Diff ####[address] [address]DLGqk 91-85-9605Zvq Rate75 mm/hrHigh0-23[facility] NorthComment on above:Performed By: #### ESR ####[address] [address] Infectious Disease Progress Noteon 27-43-0859Bvgvptmnzq Disease Progress Note Subjective Noted to have [...] signed by Tye Pompa MD 04/18/24 17:30 ESTNormalSelect Medical Specialty Hospital - Cincinnati NorthMagnesiumon 80-80-4134Woiyvpxyg [Mass/Vol]1.8 mg/dLNormal1.7-2.4 [facility] NorthComment on above:Performed By: #### MG #### [address] [address]Pwinenxzhw Progress Noteon 52-36-7691Kzsktsaphx Progress Note Subjective POD#1 lumbar I&D. Patient [...] Zofran, 4 mg= 2 mL, IV Push, u3ca-Ywttswfr Times, PRN Assessment/Plan 1. Dehiscence of surgical wound 2. Atrial fibrillation, permanent 3. Current use of anticoagulants 4. Lymphedema 5. Chronic systolic heart failure 6. Postoperative urinary retention Plan: 1. Continue drain 2. ID consulted and following along 3. Discharge pending Electronically signed by Mnai Hannon PA-C 04/18/24 06:30 ESTNormalSelect Medical Specialty [facility] Respiratory Pathogens Panelon 16-68-0908Yccnkomzfh.Not detectedNormalNot DetectedSelect Medical Specialty Hospital - Cincinnati NorthComment on above:Performed By: #### CD:[id number] #### [address] [address]Savpksoabv holmesiiNot detectedNormalNot DetectedSelect Medical Specialty Hospital - Cincinnati NorthComment on above:Result Comment: Testing was performed using nucleic acid amplification including Influenza A, Influenza A/H1, Influenza A/H3, Influenza B, RSV A, RSV B, Adenovirus, Human Metapneumovirus, Parainfluenz a 1, 2, 3, 4, Rhinovirus, Bordatella parapertussis / bronchiseptica, Bordatella holmesii, Bordatella pertussis. Results from the [facility] Respiratory Pathogens Panel should be interpreted with [...] and / or Influenza B.Performed By: #### CD:[id number] #### [address] [address]Xzhxujbpoi para/bronchNot detectedNormalNot DetectedSelect Medical Specialty Hospital - Cincinnati NorthComment on above:Performed By: #### CD:[id number] #### [address] [address]Rksksedcmk pertussisNot detectedNormalNot DetectedSelect Medical Specialty Hospital - Cincinnati NorthComment on above:Performed By: #### CD:[id number] #### [address], [place] [address]sOKRZco detectedNormalNot DetectedSelect Medical Specialty Hospital - Cincinnati NorthComment on above:Performed By: #### CD:[id number] #### [address], [place] [address]Lsgltgyhj ANot detectedNormalNot DetectedSelect Medical Specialty Hospital - Cincinnati NorthComment on above:Performed By: #### CD:[id number] #### [address] [address]Jzlqchpqj A/H1Not detectedNormalNot DetectedWayne Healthcare Main Campus SystemComment on above:Performed By: #### CD:[id number] #### [address], [place] [address]Pvpegvceq A/H3Not detectedNormalNot DetectedWayne Healthcare Main Campus SystemComment on above:Performed By: #### CD:[id number] #### [facility] [address] [facility], [place] [address]Czpekrhfv BNot detectedNormalNot DetectedWayne Healthcare Main Campus SystemComment on above:Performed By: #### CD:[id number] #### [address], [place] [address]Zbjnkdqztbcfr 1Not detectedNormalNot DetectedWayne Healthcare Main Campus SystemComment on above:Performed By: #### CD:[id number] #### [address], [place] [address]Vpcdwgwlcnsmm 2Not detectedNormalNot DetectedWayne Healthcare Main Campus SystemComment on above:Performed By: #### CD:[id number] #### [address], [place] [address]Jesbbkacquigc 3Not detectedNormalNot DetectedWayne Healthcare Main Campus SystemComment on above:Performed By: #### CD:[id number] #### [address], [place] [address]Alggnicglbbej 4Not detectedNormalNot DetectedWayne Healthcare Main Campus SystemComment on above:Performed By: #### CD:[id number] #### [address], [place] [address]DwggjluyzxJeg detectedNormalNot DetectedWayne Healthcare Main Campus SystemComment on above:Result Comment: Due to the genetic similarity between human rhinovirus and enterovirus, some strains of enterovirus may be detected as rhinovirus by this assay.Performed By: #### CD:[id number] #### [address], [place] [address]MLD ANot detectedNormalNot DetectedBlAdena Fayette [facility] CenterComment on above:Performed By: #### CD:[id number] #### [facility] [address] [place], [place] [address]MBH BNot detectedNormalNot DetectedSelect Medical Specialty Hospital - Cincinnati NorthComment on above:Performed By: #### CD:[id number] #### [facility] [address] [place], [place] [address]FV Chest 1 Viewon 75-09-0585AT Chest 1 ViewCLINICAL HISTORY: Worsening dyspnea. EXAMINATION: [...] Signed, Electronically Signed in Other Vendor System)Normal [facility].eGFRon 83-72-5927Ufwxayxao GFR52 mL/min/1.73m?Low >=60[facility] - Cincinnati NorthComment on above:Result Comment: [facility] Laboratories have implemented the eGFR [...] 1 Age = yearsPerformed By: #### EGFR ####[address] [address]Ugbei Metabolic Profileon 91-14-3939Kpdjj gap [Moles/Vol] 7 mmol/LNormal4-12[facility] Cincinnati NorthComment on above:Performed By: #### CD:[id number] ####[address] [address]Hlwrojz [Mass/Vol]8.4 mg/dLLow8.5-10.3BOhioHealth Marion General Hospital Comment on above:Performed By: #### CD:[id number] ####[address] [address]Pnifdepb [Moles/Vol]100 mmol/L Pdtodv73-175GgkwdrmqmSelect Medical Specialty Hospital - Cincinnati NorthComment on above:Performed By: #### CD:[id number] ####[address] [address]WZ5 [Moles/Vol]26 mmol/TPzdxqa32-64SyvcupahiSelect Medical Specialty Hospital - Cincinnati NorthComment on above:Performed By: #### CD:[id number] ####[address] [address]Ejhqasjssv [Mass/Vol]1.37 mg/dLHigh0.61-1.24 [facility] Cincinnati NorthComment on above:Performed By: #### CD:[id number] ####[address] [address]Nbhbdjw [Mass/Vol]89 mg/cTRealid96-23OqvlwdykiSelect Medical Specialty Hospital - Cincinnati NorthComment on above: Performed By: #### CD:[id number] ####[address] [address]Hgovphuim [Moles/Vol]3.7 mmol/LNormal3.4-4.8BOhioHealth Marion General HospitalComment on above:Performed By: #### CD:[id number] ####[address] [address]Fwrsbm [Moles/Vol]133 mmol/XBufkdm040-008GjlumltxtSelect Medical Specialty Hospital - Cincinnati NorthComment on above:Performed By: #### CD:[id number] ####[address] [address]Snuo nitrogen [Mass/Vol]20 mg/dLNormal8-26[facility] Cincinnati NorthComment on above:Performed By: #### CD:[id number] ####[address] [address]Onrs nitrogen/Creatinine [Mass ratio]14.6 mg/bdLicjbd01.0-20.0[facility] - Cincinnati NorthComment on above:Performed By: #### CD:[id number] ####[address] [address]LNC w/ Diffon 04-17-2024 Erythrocyte distribution width (RBC) [Ratio]18.7 %High11.6-14.8BOhioHealth Marion General HospitalComment on above:Performed By: #### CBC ####[address] [address]Knfmehaorl (Bld) [Volume fraction]26.4 %Low41.0-53.0[facility] - Cincinnati NorthComment on above: Performed By: #### CBC ####[address] [address]Pujplzmxnt (Bld) [Mass/Vol]9.0 g/dLLow13.5-17.5BOhioHealth Marion General HospitalComment on above:Performed By: #### CBC ####[address] [address]SYM (RBC) [Entitic mass]31.8 pg Exhfra90.0-35.0[facility] Cincinnati NorthComment on above:Performed By: #### CBC ####[address] [address]FXJO31.2 %Lkjtjk72.0-37.0[facility] Cincinnati NorthComment on above:Performed By: #### CBC ####[address] [address]QHD (RBC) [Entitic vol]93.0 zZVmwtwi36.0-100.0[facility] - Cincinnati NorthComment on above:Performed By: #### CBC ####[address] [address]Kwthbvrt368 x10*3/krYZwsweg237-749VhkgblsjiSelect Medical Specialty Hospital - Cincinnati NorthComment on above:Performed By: #### CBC ####[place] [id number] mean volume (Bld) [Entitic vol]6.5 fL Low6.7-10.6BOhioHealth Marion General HospitalComment on above:Performed By: #### CBC ####[address] [address]RWO9.84 x10*6/mcLLow4.30-5.80[facility] Cincinnati NorthComment on above:Performed By: #### CBC ####[address] [address]LXX9.6 x10*3/mcLNormal4.5-11.0[facility] - Cincinnati NorthComment on above:Performed By: #### CBC ####[address] [address]Ohgs Autoon 68-79-4997Chgo Absolute0.1 x10*3/mcLNormal 0.0-0.2BOhioHealth Marion General HospitalComment on above:Performed By: #### CD:[id number] #### [address] [address]Gchchqply/100 WBC (Bld)1.3 %High0.0-1.2BOhioHealth Marion General HospitalComment on above:Performed By: #### CD:[id number] #### [address] [address]Ofv Absolute0.3 x10*3/mcLNormal0.0-0.4BOhioHealth Marion General HospitalComment on above:Performed By: #### CD:[id number] #### [address], [place] [address]Zrenmidgigz/100 WBC (Bld)5.4 %Normal0.0-6.1BCity Hospital SystemComment on above:Performed By: #### CD:[id number] #### [address], [place] [address]Wzlgh Absolute1.6 x10*3/mcLNormal1.0-4.8BOhioHealth Marion General HospitalComment on above:Performed By: #### CD:[id number] #### [address] [address]Lyeiarrsuqd/100 WBC (Bld)28.7 %Jxwmco71.2-40.8BOhioHealth Marion General HospitalComment on above:Performed By: #### CD:[id number] #### [address], [place] [address]Hkay Absolute0.5 x10*3/mcLNormal0.3-1.1BOhioHealth Marion General HospitalComment on above:Performed By: #### CD:[id number] #### [address] [address]Bnjunfajz/100 WBC (Bld)9.7 %Normal4.7-13.9BCity Hospital SystemComment on above:Performed By: #### CD:[id number] #### [address], [place] [address]Elgtcm Absolute3.1 x10*3/mcLNormal1.8-7.7BCity Hospital SystemComment on above:Performed By: #### CD:[id number] #### [address], [place] [address]Sesfts Auto54.9 %Dovpsl34.2-70.8BCity Hospital System Comment on above:Performed By: #### CD:[id number] #### [facility] [address] [place], [place] [address]Whl & Hcton 84-78-8685Isfaacdkpv (Bld) [Volume fraction]27.2 % Low41.0-53.0[facility] - Cincinnati NorthComment on above:Performed By: #### HGBHCT ####[facility] [place] [address] Hemoglobin (Bld) [Mass/Vol]9.1 g/dLLow13.5-17.5BOhioHealth Marion General Hospital Comment on above:Performed By: #### HGBHCT ####[address] [address]Rlybdgsupb Disease Consultationon 04-17-2024 Infectious Disease ConsultationChief Complaint [...] for the tumor. His initial surgery at [facility] in [place]. Postoperatively apparently he gained a lot of fluid weight. He was sent to senior care and due to persistent edema he was sent to [facility]. Catheter wasplaced and was found to [...] up either. He was sent back to senior care. Apparently wound broke down due to persistent pressure with the back brace on against the bed. At 1 point his lymphedema pump was apparently put on over socks and caused extreme pain due to the tightness. He is doing okay at this point. He does not have any open areas in the legs or feet. He was initially admitted to [place] with MRI showing a fluid collection. He [...] being told of any fever by the senior care. She has been unhappy with the care at the facility. On review of documents from [place] he was on remdesivir on the and 14 April. However daughter states he was treated for COVIDwhile he was in [facility] earlier [facility] March. Apparently though he did [...] of left hip replacement (more content not included)...NormalSelect Medical Specialty Hospital - Cincinnati NorthMagnesiumon 54-80-3744Kcjygrhnw [Mass/Vol]2.0 mg/dLNormal 1.7-2.4BOhioHealth Marion General HospitalComment on above:Performed By: #### MG #### [place], [place] [address]Operative Reporton 19-00-3746Dnucklboq ReportPreoperative Diagnosis lumbar postoperative fluid collection with wound dehiscence Postoperative Diagnosis same Operation Lumbar I&D with wound closure Surgeon(s) [facility] TIDWELL, Randi Mesa (Surgeon - Primary) Guide Dog Instructor Mani Hannon PA-C (Aircraft Ordnance Systems Mechanic) Anesthesia General Lupe TIDWELL, Elan Hurtado (Director Retirement) Presley Pereira MD, Alejandro Thomas (Director Retirement) Girish Gonzalez (Provider) Estimated Blood Loss 25 mL Findings small seroma Specimen(s) Sterile Body Sites Culture (Back Wound for aerobic,Tissue,Back) Anaerobic Culture (Back wound for anaerobic,Wound,Back) Complications none Catheters, Drains, Tubes Device: Wound Drain W/Trocar [id number] Electronically signed by Lalo LECHUGA Gustabo Sharpe 04/17/24 07:23 ESTNormSelect Medical Specialty Hospital - [facility] Sodiumon 78-59-1151Xgvyjr [Moles/Vol]134 mmol/ILmbgvv045-854DiebzhjujSelect Medical Specialty Hospital - Cincinnati NorthComment on above:Performed By: #### NA ####[facility] [place], [place] [address]Psfob Troughon 83-33-1527Xzuwv Wjnohj89.8 mcg/uTEhpgjn78.0-15.0[facility] - Cincinnati NorthComment on above: Performed By: #### VANCT #### [address] [address].eGFRon 93-84-7688Fhkifdoia GFR46 mL/min/1.73m?Low>=60[facility] - Cincinnati NorthComment on above:Result Comment: [facility] Laboratories have implemented the eGFR [...] Age = yearsPerformed By: #### EGFR #### [facility] [address] [place] [address]OWV/Rhon 85-53-4882XVI/RhABO/Rh: O POSNormSelect Medical Specialty Hospital - TrumbullComment on above:Performed By: #### VANCT #### [place] [address] [facility], [place] [address]DVCT Autoon 78-95-9496BFZC AutoNegativeNormalSelect Medical Specialty Hospital - Cincinnati NorthComment on above:Performed By: #### ASA #### [facility] (UNKNOWN) [address] [facility], [place] [address]X99le 32-64-7211Tkhdptdnz (Vitamin B12) [Mass/Vol]422 pg/mL Hdsoib225-918RubetlgcmOhioHealth Marion General HospitalComment on above:Performed By: #### CD:[id number] #### [facility] [address] [place] [address], [place] [address]Mjzun Metabolic Profileon 19-27-3312Agkny gap [Moles/Vol]8 mmol/LNormal4-12[facility] - Cincinnati NorthComment on above:Performed By: #### CD:[id number] #### [address], [place] [address]Bzekoqn [Mass/Vol]8.5 mg/dLNormal8.5-10.3BOhioHealth Marion General HospitalComment on above:Performed By: #### CD:[id number] #### [address], [place] [address]Rtqisevm [Moles/Vol]96 mmol/GQpg74-268VebbleggtSelect Medical Specialty Hospital - Cincinnati NorthComment on above:Performed By: #### CD:[id number] #### [address], [place] [address]IQ8 [Moles/Vol]26 mmol/PGzmztf99-20RjaricwocSelect Medical Specialty Hospital - Cincinnati NorthComment on above:Performed By: #### CD:[id number] #### [address], [place] [address]Xcazfflppy [Mass/Vol]1.51 mg/dLHigh0.61-1.24[facility] Cincinnati NorthComment on above:Performed By: #### CD:[id number] #### [address], [place] [address]Szbbrot [Mass/Vol]85 mg/cDJsmiuf06-49LwovsojccSelect Medical Specialty Hospital - Cincinnati NorthComment on above:Performed By: #### CD:[id number] #### [address] [address]Garwppeas [Moles/Vol]3.6 mmol/LNormal3.4-4.8BOhioHealth Marion General HospitalComment on above:Performed By: #### CD:[id number] #### [address] [address]Wmtgli [Moles/Vol]130 mmol/TZdz877-393MpjnbskycSelect Medical Specialty Hospital - Cincinnati NorthComment on above:Performed By: #### CD:[id number] #### [address] [address]Hyyd nitrogen [Mass/Vol]23 mg/dLNormal8-26[facility] - Cincinnati NorthComment on above:Performed By: #### CD:[id number] #### [address] [address]Wffk nitrogen/Creatinine [Mass ratio]15.2 mg/ddSibuwe29.0-20.0 [facility] - Cincinnati NorthComment on above:Performed By: #### CD:[id number] #### [address] [address]IZT w/ Diffon 76-15-8766Rkcmmyeuhsx distribution width (RBC) [Ratio]15.4 %High11.6-14.8BOhioHealth Marion General HospitalComment on above: Performed By: #### CBC ####[address] [address]Fsukfxwszu (Bld) [Volume fraction]23.3 %Low41.0-53.0 [facility] - Cincinnati NorthComment on above:Performed By: #### CBC ####[address] [address]Qlnjsfoymw (Bld) [Mass/Vol]7.7 g/dLLow13.5-17.5BOhioHealth Marion General HospitalComment on above:Performed By: #### CBC ####[address] [address]NIB (RBC) [Entitic mass]32.0 dmRhuxtz46.0-35.0[facility] - Cincinnati NorthComment on above:Performed By: #### CBC ####[place] [address]MCHC33.2 %Faxdad51.0-37.0 [facility] - Cincinnati NorthComment on above:Performed By: #### CBC ####[place] [address]MCV (RBC) [Entitic vol]96.5 gPSqhofz47.0-100.0[facility] Cincinnati NorthComment on above:Performed By: #### CBC ####[address] [address]Obimsfqc851 x10*3/inLKeyglg835-422Klskziigk Valley Health SystemComment on above:Performed By: #### CBC ####[place] [address]Platelet mean volume (Bld) [Entitic vol]6.9 fL Normal6.7-10.6BOhioHealth Marion General HospitalComment on above:Performed By: #### CBC ####[address] [address]LUU5.41 x10*6/mcLLow4.30-5.80[facility] - Cincinnati NorthComment on above:Performed By: #### CBC ####[address] [address]PQQ5.5 x10*3/mcLNormal4.5-11.0[facility] - Cincinnati NorthComment on above:Performed By: #### CBC ####[address] [address]Kfodhpwvmi Progress Noteon 02-72-1956Asbwrtgoin Progress NoteSubjective PCP: Opal Ga DO ([place], [place]) Cardio: Kathy Mcintyre DO ([facility], [place], [place]) 83M with permanent AF, CHF, CKD, hypercholesterolemia transferred from [facility] for continued treatment of lower extremity edema and perioperative cardiology evaluation. Lower extremity edema suspected of being more related to chronic lymphedema than decompensated heart failure. Interval History: - Surgery reportedly planned for Tuesday, 04/17 at 6 am - No significant events overnight - Fluid balance -720 mL yesterday and -1.1 L since admission to [facility] (-4.7 L at [facility] prior to transfer) - Lower extremity edema decreasing - Denies chest pain, dyspnea, palpitations, or lightheadedness Cardiac Testing Echocardiography > 04/13/24: (Limited) EF 45-50%, mild RV enlargement with mildly reduced systolic function, marked LAE, moderate MARCIA ([facility]) Objective Vitals & Measurements T: 36.7 ?C [...] signed by Frankie Dallas DO 04/16/24 10:16 ESTNormSelect Medical Specialty Hospital - [facility] Diff Autoon 42-27-9948Xskl Absolute0.1 x10*3/mcLNormal0.0-0.2BOhioHealth Marion General HospitalComment on above:Performed By: #### .Automated Diff ####[address] [address]Rvrtralmb/100 WBC (Bld)0.8 %Normal0.0-1.2Bl[facility] Valley Health SystemComment on above:Performed By: #### .Automated Diff ####[address] [address]Xyt Absolute0.3 x10*3/mcLNormal0.0-0.4BCity Hospital SystemComment on above:Performed By: #### .Automated Diff ####[address] [address]Soipkyebsjq/100 WBC (Bld)3.8 %Normal0.0-6.1 [facility] SystemComment on above:Performed By: #### .Automated Diff ####[address] [address]Dvudu Absolute2.5 x10*3/mcLNormal1.0-4.8BCity Hospital SystemComment on above:Performed By: #### .Automated Diff ####[address] [address]Iikczvztiza/100 WBC (Bld)33.2 %Ueigcs44.2-40.8 [facility] Cincinnati NorthComment on above:Performed By: #### .Automated Diff ####[address] [address]Obwz Absolute0.5 x10*3/mcLNormal0.3-1.1BOhioHealth Marion General HospitalComment on above:Performed By: #### .Automated Diff ####[address] [address]Lpoaywucc/100 WBC (Bld)6.6 %Normal4.7-13.9BCity Hospital SystemComment on above:Performed By: #### .Automated Diff ####[address] [address]Ncslad Absolute4.1 x10*3/mcLNormal1.8-7.7BCity Hospital SystemComment on above:Performed By: #### .Automated Diff ####[address] [address]Rilybg Auto55.6 %Orckxf48.2-70.8BOhioHealth Marion General HospitalComment on above:Performed By: #### .Automated Diff ####[address] [address]Psmcbhygxl 04-16-2024 Ferritin Zfz009.5 ng/pUXqwajf32.9-336.2BOhioHealth Marion General HospitalComment on above:Performed By: #### FERR ####[address] [address]Klszya Lvlon 38-00-3437Hojlko Lvl5.9 ng/mLNormal>=5.9 [facility] - Cincinnati NorthComment on above:Result Comment: A WHO Technical Consultation has determined that deficient Folate concentrations are considered to be less than 4 ng/mL.Performed By: #### FOL ####[address] [address]Ugb & Hcton 48-94-2580Zrfiprfipb (Bld) [Volume fraction]26.1 %Low41.0-53.0[facility] Cincinnati NorthComment on above: Performed By: #### CBC #### [address] [address]Ncgystnndq (Bld) [Mass/Vol]9.0 g/dLLow13.5-17.5BOhioHealth Marion General HospitalComment on above:Performed By: #### CBC #### [address] [address]Owywqlvqjbo 47-80-2029Dvcwicunj [Mass/Vol]2.0 mg/dLNormal 1.7-2.4BOhioHealth Marion General HospitalComment on above:Performed By: #### MG ####[address] [address]Uzsmt Count on 46-34-5676Vybskkuan Retic Count0.82 %Normal0.80-2.50[facility] Cincinnati NorthComment on above:Performed By: #### CD:[id number] #### [address] [address]Hgnztvpdbu (Bld) [Volume fraction]23.0 %Low41.0-53.0[facility] Cincinnati NorthComment on above:Performed By: #### CD:[id number] #### [address] [address]Uqy Abs0.0370 x10*6/mcLNormalSelect Medical Specialty Hospital [facility] Comment on above:Performed By: #### CD:[id number] #### [address] [address]Xnckosbcnzpv3.6 %Normal0.8-2.5BOhioHealth Marion General Hospital Comment on above:Performed By: #### CD:[id number] #### [address] [address]VUKPwc 75-68-7159Mnmg [Mass/Vol]26 ug/sMYjf35-175XhkgcxzypSelect Medical Specialty Hospital - Cincinnati NorthComment on above:Performed By: #### TIBC ####[address] [address]Hvhw Sat11.6 %Low>=16.0 [facility] Cincinnati NorthComment on above:Performed By: #### TIBC ####[address] [address]YGJV940 mcg/kGEsx007-540TxsatmegzSelect Medical Specialty Hospital - Cincinnati NorthComment on above:Performed By: #### TIBC ####[address] [address] Transferrin [Mass/Vol]160 mg/rPHok668-697HibhmbliiSelect Medical Specialty Hospital - Cincinnati NorthComment on above:Performed By: #### TIBC ####[address] [address].AMI 2 Hron Hour Sgqxweszq38.8 ng/mLNormal 17.4-105.7BOhioHealth Marion General HospitalComment on above:Performed By: #### MG #### [address] [address] Hour Troponin<0.23Sewsir7.00-0.03[facility] - Cincinnati NorthComment on above:Result Comment: An increased Troponin-I value, in the absence of myocardial ischemia, may indicate other etiologies of cardiac damage. 99th Percentile Cutoff for Negative/Positive: Negative <= 0.03 Positive >= 0.04Performed By: #### MG #### [address] [address].eGFRon 13-09-0177Npmdtopqp GFR55 mL/min/1.73m?Low>=60[facility] - Cincinnati NorthComment on above:Result Comment: [facility] Laboratories have implemented the eGFR [...] or 1 Age = yearsPerformed By: #### CD:[id number] #### [address] [address]RUVlv 87-82-5132Gjpedpmmdkt peptide B (Bld) [Mass/Vol]166 pg/mL High0-100[facility] - Cincinnati NorthComment on above:Performed By: #### CD:[id number] #### [address] [address]QMO w/ Diffon 71-77-8482Zpmxnrecsgf distribution width (RBC) [Ratio]15.7 %High11.6-14.8BOhioHealth Marion General HospitalComment on above: Performed By: #### CBC #### [address], [place] [address]Bnvcasxeja (Bld) [Volume fraction]26.7 %Low41.0-53.0[facility] - Cincinnati NorthComment on above:Performed By: #### CBC #### [address] [address]Cppuyrnwsq (Bld) [Mass/Vol]8.9 g/dLLow13.5-17.5BOhioHealth Marion General HospitalComment on above:Performed By: #### CBC #### [address] [address]NMN (RBC) [Entitic mass]32.2 peFxyagp65.0-35.0[facility] Cincinnati NorthComment on above:Performed By: #### CBC #### [address] [address]BUVG64.5 %Kmelvg36.0-37.0[facility] Cincinnati NorthComment on above:Performed By: #### CBC #### [address] [address]JFT (RBC) [Entitic vol]96.1 kBWteafj34.0-100.0[facility] NorthComment on above:Performed By: #### CBC #### [address] [address]Rkroqyms100 x10*3/hbNPmwwne034-255NemtnmsoySelect Medical Specialty Hospital - Cincinnati NorthComment on above:Performed By: #### CBC #### [address] [address]Qfeshvok mean volume (Bld) [Entitic vol]6.7 fLNormal6.7-10.6 [facility] - Cincinnati NorthComment on above:Performed By: #### CBC #### [address] [address]RRE6.78 x10*6/mcLLow4.30-5.80[facility] Comment on above:Performed By: #### CBC #### [address] [address]CEB6.7 x10*3/mcLNormal4.5-11.0[facility] Comment on above:Performed By: #### CBC #### [address] [address]QSQnl 60-07-6111Xrwmmdq [Mass/Vol]3.0 g/dLLow3.2-4.9BOhioHealth Marion General HospitalComment on above:Performed By: #### CBC #### [address] [address]Xuegxhx/Globulin [Mass ratio]0.8 {ratio}Low1.1-2.2BOhioHealth Marion General HospitalComment on above:Performed By: #### CBC #### [address] [address]Tlu Ztyb844 IU/RWdjz75-44GmmuriyipSelect Medical Specialty Hospital - Cincinnati NorthComment on above:Performed By: #### CBC #### [address] [address]XVT [Catalytic activity/Vol]10 U/HQlg60-56LkwhcaopxSelect Medical Specialty Hospital - Cincinnati NorthComment on above:Performed By: #### CBC #### [address] [address]Xcuvo gap [Moles/Vol]7 mmol/LNormal4-12[facility] NorthComment on above:Performed By: #### CBC #### [address] [address]JRZ [Catalytic activity/Vol]19 U/BSwxdpl83-71LtrfgukocSelect Medical Specialty Hospital - Cincinnati NorthComment on above:Performed By: #### CBC #### [address] [address]Fegb Total0.8 mg/dLNormal0.3-1.2BOhioHealth Marion General Hospital Comment on above:Performed By: #### CBC #### [address] [address]Cgghvyx [Mass/Vol]8.5 mg/dLNormal8.5-10.3Bl[facility] Valley Health SystemComment on above:Performed By: #### CBC #### [address] [address]Owfbqxqc [Moles/Vol]95 mmol/NBxw62-061SbypfomhbSelect Medical Specialty Hospital - Cincinnati NorthComment on above:Performed By: #### CBC #### [address] [address]KO6 [Moles/Vol]27 mmol/KKokysf98-83MmlqiupfzSelect Medical Specialty Hospital - Cincinnati NorthComment on above:Performed By: #### CBC #### [address] [address]Fmmzplcecu [Mass/Vol]1.30 mg/dLHigh0.61-1.24[facility] Cincinnati NorthComment on above:Performed By: #### CBC #### [address] [address]Eqsixmi [Mass/Vol]91 mg/iPReiuar10-26TrnnppdkeSelect Medical Specialty Hospital - Cincinnati NorthComment on above:Performed By: #### CBC #### [address] [address]Gqxwxqrsa [Moles/Vol]3.2 mmol/LLow3.4-4.8BOhioHealth Marion General HospitalComment on above:Performed By: #### CBC #### [address] [address]Imfwcum [Mass/Vol]6.6 g/dLNormal6.5-8.1BOhioHealth Marion General HospitalComment on above:Performed By: #### CBC #### [address] [address]Lilrje [Moles/Vol]129 mmol/GLpt179-772HscqkozppSelect Medical Specialty Hospital - Cincinnati NorthComment on above:Performed By: #### CBC #### [address] [address]Ipcp nitrogen [Mass/Vol]25 mg/dLNormal8-26[facility] NorthComment on above:Performed By: #### CBC #### [address] [address]Xgbf nitrogen/Creatinine [Mass ratio]19.2 mg/fsQlhghs77.0-20.0 [facility] Cincinnati NorthComment on above:Performed By: #### CBC #### [facility] [address] [place], [place] [address]Axrpkstwio Consultationon 51-81-1059Benvdfhuoj Consultation Chief Complaint Surgery canceled at [facility] due to swollen legs Reason for Consultation Preoperative cardiology evaluation History of Present Illness PCP: Opal Ga DO ([place], [place]) Cardio: Kathy Mcintyre DO ([place], [place]) 83M with permanent AF, CHF, CKD, hypercholesterolemia transferred from [facility] for continued treatment of lower extremity edema and perioperative cardiology evaluation. - Preop cardiology evaluation by Dr. Mcintyre (02/16/24) reported LVEF 50% by echo - Underwent lumbar decompression with fusion by Dr. Man at [facility] on 02/21/24 - Surgery reportedly complicated by decompensated CHF > Family member claims [facility] Hospitalist gave too much IV fluid and didn't give diuretics - Post-op echo reportedly showed LVEF 35-40% (02/23/24) - Discharged to [facility] in [place], [place], for post-acute rehab - Subsequently developed acute urinary retention, LIS, and acute CHF requiring care at [facility] leading to indwelling Chou catheter - Evaluated in spine clinic 03/23 for concern about surgical site drainage - Presented to [facility] 04/13 for planned I&D but procedure canceled due to 3+ lower extremity edema and elevated BNP level - Admitted to [facility] 04/13/24 for treatment of acute on chronic systolic heart failure - NT-pro-BNP elevated at 4117 (normal is <1800) - High sensitivity troponin I elevated with flat trend (121.8, 116.3, 123.1) - CXR (04/13) report describes mild cardiomegaly, hyperinflated lungs, and minimal bibasilar atelectasis - Admitting physician at [place] documented the patient had no shortness of breath, no JVD, and clear lungs on auscultation - Limited echo showed LVEF 45-50% - Documented fluid balance at [facility] on 04/14 and 04/15 (prior to transfer): -3.0 L and -1.7L - Transferred to [facility] for preoperative cardiology evaluation before rescheduling I&D - Patient currently denies chest pain, shortness of breath, cough, orthopnea, palpitations, or lightheadedness - Reportedly has chronic edema for which he has used lymphedema pumps nightly for several years Cardiac Testing Echocardiography > 04/13/24: (Limited) EF 45-50%, mild RV enlargement with mildly reduced systolic function, marked LAE, moderate MARCIA ([facility]) Physical Exam Vitals & Measurements T: 38 [...] had acute decompensated CHF upon admission to [facility] > Lower extremity edema is chronic in [...] with fusion (02/2024) [employer] (more content not included)...NormalSelect Medical Specialty Hospital - Cincinnati NorthDiff Autoon 17-65-8490Gwkf Absolute0.1 x10*3/mcLNormal0.0-0.2BOhioHealth Marion General HospitalComment on above:Performed By: #### .Automated Diff ####[address] [address]Ugkfcifxk/100 WBC (Bld)0.7 % Normal0.0-1.2BOhioHealth Marion General HospitalComment on above:Performed By: #### .Automated Diff ####[address] [address]Pzs Absolute0.3 x10*3/mcLNormal0.0-0.4BOhioHealth Marion General HospitalComment on above:Performed By: #### .Automated Diff ####[address] [address]Kotdirwovfb/100 WBC (Bld)3.9 %Normal0.0-6.1 [facility] - Cincinnati NorthComment on above:Performed By: #### .Automated Diff ####[address] [address]Kehhf Absolute2.2 x10*3/mcLNormal1.0-4.8BOhioHealth Marion General HospitalComment on above:Performed By: #### .Automated Diff ####[address] [address]Taacbcfgplz/100 WBC (Bld)25.5 %Low27.2-40.8BOhioHealth Marion General HospitalComment on above:Performed By: #### .Automated Diff ####[address] [address]Cnie Absolute0.6 x10*3/mcLNormal0.3-1.1BOhioHealth Marion General HospitalComment on above:Performed By: #### .Automated Diff ####[address] [address]Xjnacjsvy/100 WBC (Bld)6.5 %Normal4.7-13.9BOhioHealth Marion General HospitalComment on above:Performed By: #### .Automated Diff ####[address] [address]Vpmhpe Absolute5.5 x10*3/mcLNormal1.8-7.7BOhioHealth Marion General HospitalComment on above:Performed By: #### .Automated Diff ####[address] [address]Hegsxb Auto63.4 %Paatxl09.2-70.8BOhioHealth Marion General HospitalComment on above:Performed By: #### .Automated Diff ####[address] [address]SYER, PCRon 19-90-8296USL ONLY Result Called?NoNormalSelect Medical Specialty Hospital - Cincinnati NorthComment on above: Performed By: #### MG #### [address] [address]Qhgktssqegc Resistant Staph aurus(MRSA)Not detectedNormalNot DetectedSelect Medical Specialty Hospital - Cincinnati NorthComment on above:Result Comment: Mutations or polymorphisms in primer or probe binding regions may affect detectionof new or unknown MRSA variants resulting in a false negative. The Lotaris Xpert MRSA Assay is a qualitative in [...] to the clinician.Performed By: #### MG #### [address] [address]Yaccmculvpl 85-69-2422Knldalico [Mass/Vol]1.9 mg/dLNormal 1.7-2.4BOhioHealth Marion General HospitalComment on above:Performed By: #### MG #### [address] [address]Gmkwfzhvuzxy 60-10-9097Zultlubfg [Mass/Vol]3.1 mg/dLNormal 2.5-4.6BOhioHealth Marion General HospitalComment on above:Performed By: #### PHOS ####[address] [address]Fpzkehrf-Slv 01-19-6487Bzguinhv I.cardiac [Mass/Vol]ng/mLNormal0.00-0.03[facility] Hospital - [facility] NorthComment on above:Result Comment: An increased Troponin-I value, in the absence of myocardial ischemia, may indicate other etiologies of cardiac damage. 99th Percentile Cutoff for Negative/Positive: Negative <= 0.03 Positive >= 0.04Performed By: #### TROP ####[address] [address]Oxgjmllhf Auto (Bld) [#/Vol]on 99-43-5574Egiuqlhgu (Bld) [#/Vol]Automated basophil count0.0-0.1FMercy Health – The Jewish Hospital Basophils/100 WBC Auto (Bld)on 98-65-4094Carygsuuc/100 WBC (Bld)Automated basophil %0.2-2.0[facility] HospitalCholesterol in LDL Calc [Mass/Vol]on 67-20-4014Pfpnhtbyrhb in LDL [Mass/Vol]Cholesterol in LDL [Mass/volume] in Serum or Plasma by calculationSuburban Community Hospital & [facility] Hospital Comment on above:<100 mg/dl RASWLQL421-008 mg/dl NEAR OR ABOVE LPVZWLA154-166 mg/dl BORDERLINE TJSX613-056 mg/dl HIGH>190 mg/dl VERY HIGHCholesterol in VLDL Calc [Mass/Vol]on 60-14-6760Hbgavwrbphi in VLDL [Mass/Vol]Cholesterol in VLDL [Mass/volume] in Serum or Plasma by calculationSuburban Community Hospital & [facility] Hospital Eosinophils/100 WBC Auto (Bld)on 19-73-3333Yzxvpffkwce/100 WBC (Bld)Automated eosinophil %0.9-7.0[facility] HospitalErythrocyte distribution width Auto (RBC) [Ratio]on 81-38-3069Viricopwrke distribution width (RBC) [Ratio]Erythrocyte distribution width [Ratio] by Automated count11.0-15.0 [facility] HospitalEstimated glomerular filtration rate (GFR) non- Americanon 26-49-0333ZNY/1.73 sq M.predicted among non-blacks MDRD (S/P/Bld) [Vol rate/Area]Estimated glomerular filtration rate (GFR) non- AmericanLow>=60 mL/min/1.73m 2FMercy Health – The Jewish HospitalGlobulin Calc (S) [Mass/Vol]on 58-20-1728Gswexxww (S) [Mass/Vol]Serum globulin measurement by calculation (mass/volume)[facility] HospitalHematocrit Auto (Bld) [Volume fraction]on 94-18-5161Zhckigyqhs (Bld) [Volume fraction]Hematocrit [Volume Fraction] of Blood by Automated wmtxgJfk50.0-54.0[facility] HospitalHemoglobin [Mass/volume] in Bloodon 30-40-6548Fkytpflyox (Bld) [Mass/Vol]Hemoglobin [Mass/volume] in JrujpOqt61.0-18.0[facility] HospitalLaboratory - Chemistry and Chemistry - challengeon 04-14-2024 Bilirubin Ql (U)NegativeNEGATIVESuburban Community Hospital & Brentwood HospitalGlucose (U) [Mass/Vol]NegativeNEGATIVESuburban Community Hospital & Brentwood HospitalKetones Ql (U) NegativeNEGATIVESuburban Community Hospital & Brentwood HospitalpH (U)6.5 [pH]5.0-9.0St. Francis Hospitalpecific gravity (U) [Rel density]1.0101.005-1.025 [facility] Brent[facility] HospitalUrobilinogen Qn (U)0.2 {Raghu'U}/dL0.2-1.0 [facility] HospitalAlbumin [Mass/Vol]2.2 g/dLLow3.4-5.0[facility] HospitalALP [Catalytic activity/Vol]104 U/F98-929HrakwmkohSuburban Community Hospital & Brentwood HospitalALT [Catalytic activity/Vol]8 U/UGpz87-93PltgwiotySuburban Community Hospital & Brentwood HospitalAST [Catalytic activity/Vol]18 U/G43-36DepjgunxaSuburban Community Hospital & Brentwood HospitalBilirubin [Mass/Vol]0.4 mg/dL0.2-1.0[facility] HospitalCalcium [Mass/Vol]8.6 mg/dL8.5-10.1FMercy Health – The Jewish Hospital Chloride [Moles/Vol]100 mmol/A61-862WnohbjjjnSuburban Community Hospital & Brentwood HospitalCholesterol [Mass/Vol]107 mg/dL<=200[facility] HospitalCholesterol in HDL [Mass/Vol]48 mg/mV80-33FxnmaegigSuburban Community Hospital & Brentwood HospitalComment on above:> or =60 mg/dl - LOW CARDIOVASCULAR RISK<40 mg/dl - HIGH CARDIOVASCULAR RISKCO2 [Moles/Vol]29.7 mmol/L21.0-32.0[facility] HospitalCreatinine [Mass/Vol]1.43 mg/dLHigh0.70-1.30[facility] HospitalGFR/1.73 sq M.predicted MDRD (S/P/Bld) [Vol rate/Area]57 mL/min/{1.73_m2}Low>=60 mL/min/1.73m 2FMercy Health – The Jewish HospitalGlucose [Mass/Vol]73 mg/dLLow 74-106[facility] HospitalMagnesium [Mass/Vol]1.8 mg/dL1.8-2.4 [facility] HospitalNatriuretic peptide B (Bld) [Mass/Vol]4117.0 pg/mLCritically high<=1800.0[facility] HospitalComment on above: RESULTS CALLED TO LORENZA VELAZQUEZ,RNPotassium [Moles/Vol]3.6 mmol/L3.5-5.1 [facility] HospitalProtein [Mass/Vol]6.2 g/dLLow6.4-8.2FKettering Memorial Hospitalodium [Moles/Vol]138 mmol/L758-898FwtcwjzcxSuburban Community Hospital & Brentwood HospitalTriglyceride [Mass/Vol]61 mg/dL<=150[facility] HospitalTSH Qn10.469 m[IU]/LHigh0.358-3.740[facility] HospitalUrea nitrogen [Mass/Vol]22.0 mg/dLHigh7.0-18.0[facility] HospitalUrea nitrogen/Creatinine [Mass ratio]15.4 mg/mgSuburban Community Hospital & Brentwood Hospital Laboratory - Hematology and Cell countson 20-39-4218Aqtxzpnn granulocytes/100 WBC (Bld)0.3 %0.0-0.5FMercy Health – The Jewish HospitalLaboratory - Specimen informationon 31-74-5078Uzilyafckl (U)CLEARCLEARFMercy Health – The Jewish HospitalColor (U)LT. YELLOWYELLOWSuburban Community Hospital & Brentwood HospitalLaboratory - Urinalysison 54-78-9315Zojossrfz esterase Test strip Ql (U)MODERATEAbnormal NEGATIVESuburban Community Hospital & Brentwood HospitalMucus Ql (Urine sed)NONE SEENNONE SEEN [facility] HospitalNitrite Ql (U)NegativeNEGATIVESuburban Community Hospital & Brentwood HospitalProtein Ql (U)NegativeNEG/TRACESuburban Community Hospital & Brentwood HospitalLeukocytes [#/volume] corrected for nucleated erythrocytes in Blood by Automated counon 04-38-2240TSW corrected for nucl RBC Auto (Bld) [#/Vol] Leukocytes [#/volume] corrected for nucleated erythrocytes in Blood by Automated coun4.0-11.0[facility] HospitalLymphocytes Auto (Bld) [#/Vol]on 09-83-4205Pebfbrqczst (Bld) [#/Vol]Lymphocytes [#/volume] in Blood by Automated count1.2-3.8[facility] HospitalLymphocytes/100 WBC Auto (Bld)on 42-19-3143Jlgjtmvctez/100 WBC (Bld)Lymphocytes/100 leukocytes in Blood by Automated count20.5-60.0[facility] HospitalMCH Auto (RBC) [Entitic mass]on 35-05-2733WUG (RBC) [Entitic mass]MCH [Entitic mass] by Automated count 25.9-34.0[facility] Brent[facility] HospitalMCHC Auto (RBC) [Mass/Vol]on 04-48-9696BRTN (RBC) [Mass/Vol]MCHC [Mass/volume] by Automated count29.9-35.2 [facility] HospitalMCV Auto (RBC) [Entitic vol]on 98-37-0376EGZ (RBC) [Entitic vol]MCV [Entitic volume] by Automated ysjlwPddv69.0-94.0[facility] HospitalMonocytes Auto (Bld) [#/Vol]on 51-41-8282Qjicpnkin (Bld) [#/Vol]Automated blood monocyte count0.3-0.8[facility] Monocytes/100 WBC Auto (Bld)on 94-59-2909Xgdufowge/100 WBC (Bld)Automated monocyte %1.7-12.0[facility] HospitalNeutrophils Auto (Bld) [#/Vol]on 52-10-1474Dggrrqdrtzk (Bld) [#/Vol]Neutrophils [#/volume] in Blood by Automated count1.4-6.5FMercy Health – The Jewish HospitalNeutrophils/100 WBC Auto (Bld)on 03-46-4143Wgmnoqfsins/100 WBC (Bld)Automated neutrophil %43.0-75.0 [facility] HospitalNo Panel Informationon 15-07-7841Pwrzp Bacteria SMALL #/HPFAbnormalNONE SEENSuburban Community Hospital & Brentwood HospitalUrine Culture ReflexedALREADY ORDEREDSuburban Community Hospital & Brentwood HospitalUrine Occult Blood NegativeNEGATIVESuburban Community Hospital & Brentwood HospitalUrine Other CastsNONE SEEN #/LPFNONE [facility] HospitalUrine Other CrystalsNone Seen #/HPFNone [facility] HospitalUrine RBCNONE SEEN #/HPF0-2 [facility] Brent[facility] HospitalUrine Squamous Epithelial CellsNONE SEEN #/LPF NONE/RARESuburban Community Hospital & Brentwood HospitalUrine NYF15-85 #/HPFAbnormalNONE SEEN [facility] HospitalALREADY ORDEREDSuburban Community Hospital & Brentwood HospitalNONE SEEN #/LPFNONE/RARESuburban Community Hospital & Brentwood HospitalNone Seen #/HPF 0-2FKettering Memorial HospitalMALL #/HPFAbnormalNONE SEENSuburban Community Hospital & Brentwood HospitalNegativeNEG/TRACESuburban Community Hospital & Brentwood HospitalCLEAR CLEARSuburban Community Hospital & Brentwood HospitalLT. YELLOWYELLOWSuburban Community Hospital & Brentwood HospitalMODERATEAbnormalNEGATIVESuburban Community Hospital & Brentwood HospitalNONE SEENNONE SEENSuburban Community Hospital & [facility] Hospital6.55.0-9.0[facility] 1.0101.005-1.025[facility]0.2 EU/dL0.2-1.0[facility]10-20 #/HPFAbnormalENCOMPASS HEALTH VALLEY OF THE SUN REHABILITATION HOSPITALE [facility] HospitalTroponin I High Isnjmlbedpw839.8 pg/mLCritically high4.0-76.1FMercy Health – The Jewish HospitalComment on above:RESULTS CALLED TO Yoli WillRNCUT-OFF [...] CONJUNCTIONWITH OTHER DIAGNOSTIC AND CLINICAL INFORMATION.121.8 pg/mLCritically high4.0-76.1FMercy Health – The Jewish Hospital Eosinophils # (Auto)0.4 10 3/uL0.0-0.7FMercy Health – The Jewish HospitalImmature Granulocyte # (Auto)0.02 10 3/uL0.00-0.03[facility]10.469 u[iU]/mLHigh0.358-3.740[facility]4117.0 pg/mLCritically high<=1800.0[facility]1.8 mg/dL1.8-2.4FMercy Health – The Jewish Hospital107 mg/dL<=200[facility]48 mg/dL40-60 [facility]2.2 g/dLLow3.4-5.0[facility]0.4 10 3/uL0.0-0.7FMercy Health – The Jewish Hospital104 U/C09-741QqqieyqhlSuburban Community Hospital & Brentwood Hospital61 mg/dL<=150[facility]8 U/LLow 16-63[facility]18 U/C03-73FigjhykyrSuburban Community Hospital & Brentwood Hospital15.4FMercy Health – The Jewish Hospital0.02 10 3/uL0.00-0.03[facility]22.0 mg/dLHigh7.0-18.0[facility] 0.3 %0.0-0.5FMercy Health – The Jewish Hospital8.6 mg/dL8.5-10.1FMercy Health – The Jewish Hospital100 mmol/E61-300InzbuiworSuburban Community Hospital & Brentwood Hospital29.7 mmol/L 21.0-32.0[facility]1.43 mg/dLHigh0.70-1.30[facility]57Low>=60 mL/min/1.73m 2FMercy Health – The Jewish Hospital 73 mg/sSGai29-225BwhcnbvbnSuburban Community Hospital & Brentwood Hospital3.6 mmol/L3.5-5.1FMercy Health – The Jewish Hospital138 mmol/J140-284XxrsjomwrSuburban Community Hospital & Brentwood Hospital0.4 mg/dL0.2-1.0[facility]6.2 g/dLLow6.4-8.2FMercy Health – The Jewish HospitalPlatelet mean volume Auto (Bld) [Entitic vol]on 03-80-2805Kemgqdth mean volume (Bld) [Entitic vol]Platelet mean volume [Entitic volume] in Blood by Automated countLow9.5-13.5FMercy Health – The Jewish Hospital Platelets Auto (Bld) [#/Vol]on 26-42-6240Qfdcygljb (Bld) [#/Vol]Platelets [#/volume] in Blood by Automated lywtf917-053TwaeckoxxSuburban Community Hospital & [facility] Hospital RBC Auto (Bld) [#/Vol]on 85-57-4798PMQ (Bld) [#/Vol]Erythrocytes [#/volume] in Blood by Automated countLow4.70-6.10St. Francis Hospitalerum or plasma albumin/globulin mass ratioon 04-59-0282Pkftbby/Globulin [Mass ratio] Serum or plasma albumin/globulin mass ratioSuburban Community Hospital & Brentwood Hospital Serum or plasma anion gap determinationon 60-39-3169Hsbwg gap [Moles/Vol]Serum or plasma anion gap determinationSt. Francis Hospitalerum or plasma total cholesterol/high density lipoprotein (HDL) cholesterol mass william 88-88-2719Xeuozzdfktz.total/Cholesterol in HDL [Mass ratio]Serum or plasma total cholesterol/high density lipoprotein (HDL) cholesterol mass ratSuburban Community Hospital & Brentwood HospitalComment on above:3.3 - 4.4 LOW RISK4.4 - 7.1 AVERAGE RISK7.1 - 11.0 MODERATE RISK>11.0 HIGH RISKActivated partial thromboplastin time (aPTT) in platelet poor plasma by coagulation aon 06-57-7046mYNN Coag (PPP) [Time]Activated partial thromboplastin time (aPTT) in platelet poor plasma by coagulation a22.3-36.2FMercy Health – The Jewish HospitalBasophils Auto (Bld) [#/Vol]on 77-60-7052Ywydsxums (Bld) [#/Vol]Automated basophil count0.0-0.1 [facility] HospitalBasophils/100 WBC Auto (Bld)on 04-13-2024 Basophils/100 WBC (Bld)Automated basophil %0.2-2.0[facility] HospitalEosinophils/100 WBC Auto (Bld)on 79-02-2020Zviopxaaxgy/100 WBC (Bld) Automated eosinophil %0.9-7.0[facility] HospitalErythrocyte distribution width Auto (RBC) [Ratio]on 35-94-5203Txvyfighmwx distribution width (RBC) [Ratio]Erythrocyte distribution width [Ratio] by Automated count11.0-15.0 [facility] HospitalEstimated glomerular filtration rate (GFR) non- Americanon 03-53-4002ZIC/1.73 sq M.predicted among non-blacks MDRD (S/P/Bld) [Vol rate/Area]Estimated glomerular filtration rate (GFR) non- AmericanLow>=60 mL/min/1.73m 2FMercy Health – The Jewish HospitalGlobulin Calc (S) [Mass/Vol]on 58-60-3347Icsrraaf (S) [Mass/Vol]Serum globulin measurement by calculation (mass/volume)[facility] HospitalHematocrit Auto (Bld) [Volume fraction]on 84-62-3936Jjojcltapy (Bld) [Volume fraction]Hematocrit [Volume Fraction] of Blood by Automated bycbqEqz11.0-54.0[facility] HospitalHemoglobin [Mass/volume] in Bloodon 43-55-8615Ssdythslll (Bld) [Mass/Vol]Hemoglobin [Mass/volume] in IyrevBkq36.0-18.0[facility] HospitalINR in Platelet poor plasma by Coagulation assayon 41-80-0920YWH Coag (PPP) [Relative time]INR in Platelet poor plasma by Coagulation assay [facility] HospitalComment on above:DESIRED INR:2.0-3.0 CONDITIONS NOT LISTED BELOW2.5-3.5 FOR PROSTHETIC HEART VALVE REPLACEMENT2.5-3.5 RECURRENT THROMBOSISLaboratory - Chemistry and Chemistry - challengeon 51-69-6029Wueqvgo [Mass/Vol]2.5 g/dLLow3.4-5.0[facility] HospitalALP [Catalytic activity/Vol]118 U/SZouh85-408EsfyeuechSuburban Community Hospital & Brentwood HospitalALT [Catalytic activity/Vol]10 U/BBbl94-81MlshapmwmSuburban Community Hospital & Brentwood HospitalAST [Catalytic activity/Vol]25 U/E25-40NphsfbdixSuburban Community Hospital & Brentwood HospitalBilirubin [Mass/Vol]0.5 mg/dL0.2-1.0[facility] HospitalCalcium [Mass/Vol]8.9 mg/dL 8.5-10.1FMercy Health – The Jewish HospitalChloride [Moles/Vol]99 mmol/L98-107 [facility] HospitalCO2 [Moles/Vol]31.5 mmol/L21.0-32.0[facility] HospitalCreatinine [Mass/Vol]1.62 mg/dLHigh0.70-1.30[facility] HospitalGFR/1.73 sq M.predicted MDRD (S/P/Bld) [Vol rate/Area]50 mL/min/{1.73_m2}Low>=60 mL/min/1.73m 2FMercy Health – The Jewish HospitalGlucose [Mass/Vol]80 mg/aX70-101FmmiuetthSuburban Community Hospital & Brentwood HospitalNatriuretic peptide B (Bld) [Mass/Vol]2978.0 pg/mLCritically high<=1800.0[facility] HospitalComment on above:RESULTS CALLED TO MARIA INES CARUSO RN IN SURGERY BY Ivis Tobias at 1053Potassium [Moles/Vol]4.5 mmol/L3.5-5.1FMercy Health – The Jewish HospitalProtein [Mass/Vol]6.9 g/dL6.4-8.2FMercy Health – The [facility] Hospital Sodium [Moles/Vol]137 mmol/P788-380BfyuwwcdxSuburban Community Hospital & Brentwood HospitalUrea nitrogen [Mass/Vol]21.0 mg/dLHigh7.0-18.0[facility] HospitalUrea nitrogen/Creatinine [Mass ratio]13.0 mg/mgSuburban Community Hospital & Brentwood Hospital Laboratory - Hematology and Cell countson 54-75-4443Qecfkqrs granulocytes/100 WBC (Bld)0.3 %0.0-0.5FMercy Health – The Jewish HospitalLeukocytes [#/volume] corrected for nucleated erythrocytes in Blood by Automated counon 61-74-4819LVB corrected for nucl RBC Auto (Bld) [#/Vol]Leukocytes [#/volume] corrected for nucleated erythrocytes in Blood by Automated coun4.0-11.0[facility] HospitalLymphocytes Auto (Bld) [#/Vol]on 17-20-7384Ejjwnqfjmiz (Bld) [#/Vol]Lymphocytes [#/volume] in Blood by Automated count1.2-3.8[facility] HospitalLymphocytes/100 WBC Auto (Bld)on 04-13-2024 Lymphocytes/100 WBC (Bld)Lymphocytes/100 leukocytes in Blood by Automated count 20.5-60.0[facility] HospitalMCH Auto (RBC) [Entitic mass]on 58-74-9013VQE (RBC) [Entitic mass]MCH [Entitic mass] by Automated count25.9-34.0 [facility] Brent[facility] HospitalMCHC Auto (RBC) [Mass/Vol]on 58-22-6227NLYN (RBC) [Mass/Vol]MCHC [Mass/volume] by Automated count29.9-35.2FMercy Health – The Jewish HospitalMCV Auto (RBC) [Entitic vol]on 38-84-5566YJA (RBC) [Entitic vol] MCV [Entitic volume] by Automated zpevzYliw95.0-94.0[facility] HospitalMonocytes Auto (Bld) [#/Vol]on 76-61-5474Udzqsqzka (Bld) [#/Vol]Automated blood monocyte count0.3-0.8[facility] HospitalMonocytes/100 WBC Auto (Bld)on 42-95-5830Hrenmcogk/100 WBC (Bld)Automated monocyte %1.7-12.0 [facility] Brentwood HospitalNeutrophils Auto (Bld) [#/Vol]on 04-13-2024 Neutrophils (Bld) [#/Vol]Neutrophils [#/volume] in Blood by Automated count 1.4-6.5FMercy Health – The Jewish HospitalNeutrophils/100 WBC Auto (Bld)on 53-98-4346Pjynbczncxj/100 WBC (Bld)Automated neutrophil %43.0-75.0[facility] HospitalNo Panel Informationon 78-91-6587Zkiytvisjwz # (Auto)0.4 10 3/uL0.0-0.7FMercy Health – The Jewish HospitalImmature Granulocyte # (Auto)0.02 10 3/uL0.00-0.03[facility] HospitalTroponin I High Sensitivity 123.1 pg/mLCritically high4.0-76.1FMercy Health – The Jewish HospitalComment on above:RESULTS CALLED TO Yoli Will [...] OTHER DIAGNOSTIC AND CLINICAL INFORMATION.123.1 pg/mLCritically high4.0-76.1 [facility]2978.0 pg/mLCritically high<=1800.0[facility]0.4 10 3/uL0.0-0.7FMercy Health – The Jewish Hospital2.5 g/dLLow3.4-5.0[facility]118 U/FPaic99-418GjiawetqzSuburban Community Hospital & [facility] Hospital10 U/TLak20-86SwmwwsaliSuburban Community Hospital & Brentwood Hospital25 U/L 15-37[facility]0.02 10 3/uL0.00-0.03[facility]13.0[facility]0.3 %0.0-0.5FMercy Health – The Jewish Hospital21.0 mg/dLHigh7.0-18.0[facility] 8.9 mg/dL8.5-10.1FMercy Health – The Jewish Hospital99 mmol/U73-778WwigaavipSuburban Community Hospital & Brentwood Hospital31.5 mmol/L21.0-32.0[facility]1.62 mg/dLHigh0.70-1.30[facility]50Low>=60 mL/min/1.73m 2 [facility]80 mg/zG24-429SmlhniocoSuburban [facility] & [facility] 4.5 mmol/L3.5-5.1FMercy Health – The Jewish Hospital137 mmol/Y888-842SvceyezzdSuburban [facility] Hospital & [facility]0.5 mg/dL0.2-1.0[facility]6.9 g/dL 6.4-8.2FMercy Health – The Jewish HospitalPlatelet mean volume Auto (Bld) [Entitic vol]on 55-14-7048Bhtvarng mean volume (Bld) [Entitic vol]Platelet mean volume [Entitic volume] in Blood by Automated count9.5-13.5FMercy Health – The Jewish HospitalPlatelets Auto (Bld) [#/Vol]on 05-56-7705Rzhyrtmxt (Bld) [#/Vol]Platelets [#/volume] in Blood by Automated lvuve112-829NewjaznacSuburban Community Hospital & [facility] Prothrombin time (PT)on 77-74-6203ZX Coag (PPP) [Time]Prothrombin time (PT)High 9.0-11.6FMercy Health – The Jewish HospitalRBC Auto (Bld) [#/Vol]on 99-59-6329CHL (Bld) [#/Vol]Erythrocytes [#/volume] in Blood by Automated countLow4.70-6.10 [facility] [facility] Hospitalerum or plasma albumin/globulin mass ratioon 18-30-1081Jxnhiuj/Globulin [Mass ratio]Serum or plasma albumin/globulin mass ratioSt. Francis Hospitalerum or plasma anion gap determinationon 69-16-4734Izxwj gap [Moles/Vol]Serum or plasma anion gap determinationSuburban Community Hospital & Brentwood HospitalMagnetic resonance imaging reportOrdered By: Palmer Dejesus on 34-06-4429Xtnik reportMEMORIAL HOSPITAL Main [place] [address] [place] [address] MRI Report Signed Patient: Tavo Wallis Jr MR# : [id number] : 1940 Acct:[id number] Age/Sex: 83 / M ADM Date: 5 Loc: MR Room: Type: [facility] Attending Dr: Randi Batista MD Copies to: Randi Burris MD~ Ordering Provider: Randi Burris MD Date of Service: 04/03/24 MR/MR lumbar spine wo con: Z47.89 ([id number]) XR/XR pre/post mri xray: PRE AND POST [...] the foraminal and extraforaminal and lateral zone. Eppprjtb-se-fhmbpo right and at least moderate left neural [...] No central canal or neural from narrowing. Mhca-wk-hpnsuife facet degeneration. MR/MR lumbar spine wo con [...] Palmer Dejesus M.D.04/03/2024 5:02 PM Dictation [facility] Transcribed By: [facility] 04/03/241701 Dictated By: Palmer Dejesus MD 04/03/24 1630 Signed By: 04/03/241701 [facility] Work Phone: xr pre/post mri xrayon 78-27-6673MN pre/post mri xray NormalThe [facility] University Health SystemBasic Metabolic Panelon 18-96-4406Rpspg gap [Moles/Vol]12.7 mmol/LNormal6.0-15.0The [facility] University Health SystemComment on above:Performed By: #### BMP ####[address] [place] [address] USACalcium [Mass/Vol]8.2 mg/dLLow8.6-10.3The [facility] University Health SystemComment on above:Performed By: #### BMP ####[address] [place] [address] USAChloride [Moles/Vol]93 mmol/L Qzy02-624Tut [facility] Health SystemComment on above:Performed By: #### BMP ####[address] [place] [address] USACO2 [Moles/Vol]30.7 mmol/WQuhaiy29.0-31.0The [facility] Health SystemComment on above:Performed By: #### BMP ####[address] [place] [address] USACreatinine [Mass/Vol]2.22 mg/dLHigh0.70-1.30The [facility] Health SystemComment on above:Performed By: #### BMP ####[address] [place] [address] USACreatinine Clr Calc Cgdhmozo58.04NoAsheville Specialty Hospital Physician GroupComment on above:Result Comment: PERFORMED BY:[address] [place], [place] [phone] MEDICAL DIRECTORJAJA CATES M.D. Performed By: #### BMP ####[address] [address] USAEstimated GFR28.859 mL/MinNoAsheville Specialty Hospital Physician GroupComment on above:Performed By: #### BMP ####[address] [address] USAGlucose [Mass/Vol]73 mg/dL Ynbiol76-350Inf [facility] Physician GroupComment on above:Result Comment: Random Glucose Reference Range is dependent on time and content of last meal. Glucose of more than 200 mg/dL in a nonstressed, ambulatory subject supports the diagnosis of Diabetes Mellitus. ADA recommended reference rangePerformed By: #### BMP ####[address] [address] USAPotassium [Moles/Vol]3.4 mmol/LLow3.5-5.1The [facility] Physician GroupComment on above:Performed By: #### BMP ####[address] [address] USASodium [Moles/Vol]133 mmol/OGbv232-460Yoi [facility] Physician GroupComment on above:Performed By: #### BMP ####[address] [address] USAUrea nitrogen [Mass/Vol]40 mg/dLHigh7-25The [facility] Physician GroupComment on above:Performed By: #### BMP ####[address] [address] [place] Calcium [Mass/volume] in Serum or PlasmaOrdered By: Michele Knight on 03-15-2024 Calcium [Mass/Vol]Calcium [Mass/volume] in Serum or PlasmaLow8.6-10.3FMercy Health – The Jewish HospitalCarbon dioxide, total [Moles/volume] in Serum or Plasma Ordered By: Michele Knight on 60-25-0532XK6 [Moles/Vol]Carbon dioxide, total [Moles/volume] in Serum or Xukcqb47.0-31.0[facility] Chloride [Moles/volume] in Serum or PlasmaOrdered By: Michele Knight on 03-15-2024 Chloride [Moles/Vol]Chloride [Moles/volume] in Serum or CpcjwrLdn64-652LfhrcbgaoSuburban Community Hospital & Brentwood HospitalCreatinine [Mass/volume] in Serum or PlasmaOrdered By: Michele Knight on 85-41-9245Uysumaqkpp [Mass/Vol]Creatinine [Mass/volume] in Serum or PlasmaHigh0.70-1.30[facility] HospitalGlucose [Mass/volume] in Serum or PlasmaOrdered By: Michele Knight on 33-44-1018Dmdhzhd [Mass/Vol]Glucose [Mass/volume] in Serum or Jzaxmh84-716UhuurdrkqSuburban Community Hospital & Brentwood HospitalComment on above:ADA recommended reference rangeRandom Glucose Reference Range is dependent on time and content of last meal. Glucose of more than 200 mg/dL in a nonstressed, ambulatory subject supports the diagnosisof Diabetes Mellitus.No Panel InformationOrdered By: Michele Knight on 54-84-7255Goacitigr GFR (CKD-EPI) 28.859 mL/MinSuburban Community Hospital & Brentwood HospitalPharmacy Creatinine Clearance (Chem26.04[facility]28.859 mL/MinSub[facility] Hospital & [facility]26.04[facility] HospitalPotassium [Moles/volume] in Serum or PlasmaOrdered By: Michele Knight on 51-71-6652Kqydgonaw [Moles/Vol] Potassium [Moles/volume] in Serum or PlasmaLow3.5-5.1FKettering Memorial Hospitalerum or plasma anion gap determinationOrdered By: Michele Knight on 80-88-3965Cebve gap [Moles/Vol]Serum or plasma anion gap determination6.0-15.[address] [facility] Hospitalodium [Moles/volume] in Serum or PlasmaOrdered By: Michele Knight on 63-19-9474Lgmcmj [Moles/Vol]Sodium [Moles/volume] in Serum or SrelofDza772-468QbduzbuhnSuburban Community Hospital & Brentwood HospitalUrea nitrogen [Mass/volume] in Serum or PlasmaOrdered By: Michele Kinght on 53-02-1594Jfiu nitrogen [Mass/Vol] Urea nitrogen [Mass/volume] in Serum or PlasmaHigh7-25[facility] HospitalBasic Metabolic Panelon 25-41-6381Blowa gap [Moles/Vol]11.4 mmol/LNormal 6.0-15.0The [facility] Physician GroupComment on above:Performed By: #### BMP ####[address] [address] USACalcium [Mass/Vol]8.1 mg/dLLow8.6-10.3The [facility] Physician GroupComment on above: Performed By: #### BMP ####[address] [address] USAChloride [Moles/Vol]93 mmol/MTcp33-742Keq [facility] Physician GroupComment on above:Performed By: #### BMP ####[address] [address] USACO2 [Moles/Vol]29.7 mmol/L Gblted66.0-31.0The [facility] Physician GroupComment on above:Performed By: #### BMP ####[address] [address] [place] Creatinine [Mass/Vol]2.39 mg/dLHigh0.70-1.30The [facility] Physician GroupComment on above:Performed By: #### BMP ####[address] [address] USACreatinine Clr Calc Djvpltbx46.73NormLancaster Municipal Hospitale [facility] Physician GroupComment on above:Result Comment: PERFORMED BY:[address] GUALLPACLIFFSIDE [place], [place] [phone] MEDICAL DIRECTORJAJA CATES M.D.Performed By: #### BMP ####[address] [address] USAEstimated GFR26.413 mL/Min NormalThe [facility] Physician GroupComment on above:Performed By: #### BMP ####[address] [address] USAGlucose [Mass/Vol]80 mg/qSKenjhc14-014Kej [facility] Physician GroupComment on above: Result Comment: Random Glucose Reference Range is dependent on time and content of last meal. Glucose of more than 200 mg/dL in a nonstressed, ambulatory subject supports the diagnosis of Diabetes Mellitus. ADA recommended reference rangePerformed By: #### BMP ####[address] [address] USAPotassium [Moles/Vol]3.1 mmol/LLow3.5-5.1The [facility] Physician GroupComment on above:Performed By: #### BMP ####[address] [address] USASodium [Moles/Vol]131 mmol/HDir421-277Ckq [facility] Physician GroupComment on above:Performed By: #### BMP ####[address] [address] USAUrea nitrogen [Mass/Vol]41 mg/dLHigh7-25The [facility] Physician GroupComment on above:Performed By: #### BMP ####[address] [address] USABasic Metabolic Panelon 93-53-1989Rsckj gap [Moles/Vol]11.2 mmol/LNormal6.0-15.0The [facility] Physician GroupComment on above:Performed By: #### BMP ####[address] [address] USACalcium [Mass/Vol]8.7 mg/dLNormal8.6-10.3The [facility] Physician GroupComment on above:Performed By: #### BMP ####[address] [address] USAChloride [Moles/Vol] 91 mmol/SKwn97-737Yng [facility] Physician GroupComment on above:Performed By: #### BMP ####[address] [place] [address] USACO2 [Moles/Vol]30.0 mmol/BHtqcoa22.0-31.0The [facility] Physician GroupComment on above:Performed By: #### BMP ####[address] [address] USACreatinine [Mass/Vol]2.27 mg/dLHigh0.70-1.30The [facility] Physician GroupComment on above:Performed By: #### BMP ####[address] [address] USACreatinine Clr Calc Pltllzxj73.95NoAsheville Specialty Hospital Physician GroupComment on above:Result Comment: PERFORMED BY:[address] [place], [place] [phone] MEDICAL DIRECTORJAJA CATES M.D. Performed By: #### BMP ####[address] [address] USAEstimated GFR28.097 mL/MinNoAsheville Specialty Hospital Physician Laird HospitalComment on above:Performed By: #### BMP ####[address] [address] USAGlucose [Mass/Vol]143 mg/dL Tnxo18-630Axw [facility] Physician GroupComment on above:Result Comment: Random Glucose Reference Range is dependent on time and content of last meal. Glucose of more than 200 mg/dL in a nonstressed, ambulatory subject supports the diagnosis of Diabetes Mellitus. ADA recommended reference rangePerformed By: #### BMP ####[address] [address] USAPotassium [Moles/Vol]3.2 mmol/LLow3.5-5.1The [facility] Physician GroupComment on above:Performed By: #### BMP ####[address] [address] USASodium [Moles/Vol]129 mmol/CJsl352-113Chz [facility] Physician GroupComment on above:Performed By: #### BMP ####[address] [place] [address] USAUrea nitrogen [Mass/Vol]36 mg/dLHigh7-25The [facility] Physician GroupComment on above:Performed By: #### BMP ####[address] [address] [facility] Basic Metabolic Panelon 96-41-1158Ckccl gap [Moles/Vol]10.1 mmol/LNormal6.0-15.0 The [facility] Physician GroupComment on above:Performed By: #### BMP ####[address] [address] USACalcium [Mass/Vol]8.4 mg/dLLow8.6-10.3The [facility] Physician GroupComment on above: Performed By: #### BMP ####[address] [address] USAChloride [Moles/Vol]96 mmol/FNug50-467Avn [facility] Physician GroupComment on above:Performed By: #### BMP ####[address] USACO2 [Moles/Vol]29.5 mmol/L Caklal86.0-31.0The [facility] Physician GroupComment on above:Performed By: #### BMP ####[address] [address] [place] Creatinine [Mass/Vol]2.33 mg/dLHigh0.70-1.30The [facility] Physician GroupComment on above:Performed By: #### BMP ####[address] [address] USACreatinine Clr Calc Hvbqpmlu59.07NormalThe [facility] Physician GroupComment on above:Result Comment: PERFORMED BY:[address] ELDRIDGEAM[place], [place] [phone] MEDICAL DIRECTORJAJA CATES M.D.Performed By: #### BMP ####[address] [address] USAEstimated GFR27.232 mL/Min NormalThe [facility] Physician GroupComment on above:Performed By: #### BMP ####[address] [address] USAGlucose [Mass/Vol]79 mg/xPIyguha62-165Rhh [facility] Physician GroupComment on above: Result Comment: Random Glucose Reference Range is dependent on time and content of last meal. Glucose of more than 200 mg/dL in a nonstressed, ambulatory subject supports the diagnosis of Diabetes Mellitus. ADA recommended reference rangePerformed By: #### BMP ####[address] USAPotassium [Moles/Vol]3.6 mmol/LNormal3.5-5.1The [facility] Physician GroupComment on above:Performed By: #### BMP ####[address] USASodium [Moles/Vol]132 mmol/RAhz242-237Zik [facility] Physician GroupComment on above:Performed By: #### BMP ####[address] [address] USAUrea nitrogen [Mass/Vol]35 mg/dLHigh7-25The [facility] Physician GroupComment on above:Performed By: #### BMP ####[address] [address] USABasic Metabolic Panelon 48-78-4719Nswfv gap [Moles/Vol]11.8 mmol/LNormal6.0-15.0The [facility] Physician GroupComment on above:Performed By: #### BMP ####[address] USACalcium [Mass/Vol]8.3 mg/dLLow8.6-10.3The [facility] Physician GroupComment on above:Performed By: #### BMP ####[address] [address] USAChloride [Moles/Vol]100 mmol/L Bsmapv13-775Hlj [facility] Physician GroupComment on above:Performed By: #### BMP ####[address] [address] USACO2 [Moles/Vol]28.4 mmol/AHnikdv78.0-31.0The [facility] Physician GroupComment on above:Performed By: #### BMP ####[address] [address] USACreatinine [Mass/Vol]2.69 mg/dLHigh0.70-1.30The [facility] Physician GroupComment on above:Performed By: #### BMP ####[address] USACreatinine Clr Calc Ludcalxx93.96NormAdventHealth Wauchula Physician GroupComment on above:Result Comment: PERFORMED BY:[address] [place], [place] [phone] MEDICAL DIRECTORJAJA CATES M.D. Performed By: #### BMP ####[address] [address] USAEstimated GFR22.919 mL/MinNoAsheville Specialty Hospital Physician Laird HospitalComment on above:Performed By: #### BMP ####[address] [address] USAGlucose [Mass/Vol]97 mg/dL Tkrcee13-038Hix [facility] Physician Laird HospitalComment on above:Result Comment: Random Glucose Reference Range is dependent on time and content of last meal. Glucose of more than 200 mg/dL in a nonstressed, ambulatory subject supports the diagnosis of Diabetes Mellitus. ADA recommended reference rangePerformed By: #### BMP ####[address] [address] USAPotassium [Moles/Vol]4.2 mmol/LNormal3.5-5.1The [facility] Comment on above:Performed By: #### BMP ####[address] [address] USASodium [Moles/Vol]136 mmol/BPwdbjl160-799Hbx [facility] Physician Laird HospitalComment on above:Performed By: #### BMP ####[address] USAUrea nitrogen [Mass/Vol]39 mg/dLHigh7-25The [facility] Physician GroupComment on above: Performed By: #### BMP ####[facility] [place] [address] USAAlanine aminotransferase [Enzymatic activity/volume] in Serum or PlasmaOrdered By: Marcos Martin on 04-80-1373PFZ [Catalytic activity/Vol]Alanine aminotransferase [Enzymatic activity/volume] in Serum or Plasma7-52[facility] HospitalAlbumin [Mass/volume] in Serum or Plasma by Bromocresol green (BCG) dye binding methoOrdered By: Marcos Martin on 38-55-2190Trgatmr BCG dye [Mass/Vol]Albumin [Mass/volume] in Serum or Plasma by Bromocresol green (BCG) dye binding methoLow3.5-5.7FMercy Health – The Jewish HospitalAlkaline phosphatase [Enzymatic activity/volume] in Serum or PlasmaOrdered By: Marcos Martin on 12-69-4074GRY [Catalytic activity/Vol]Alkaline phosphatase [Enzymatic activity/volume] in Serum or LogwplSdqa39-587GthvuwedjSuburban Community Hospital & Brentwood HospitalAppearance of UrineOrdered By: Marcos Martin on 65-23-0079Hbumvywhvt (U)Urine appearanceCleMercer County Community HospitalAspartate aminotransferase [Enzymatic activity/volume] in Serum or PlasmaOrdered By: Marcos Martin on 99-63-7765DZV [Catalytic activity/Vol]Aspartate aminotransferase [Enzymatic activity/volume] in Serum or Uafeoi80-04IhehyekiaSuburban Community Hospital & Brentwood HospitalB-Type Natriuretic Peptideon 05-03-4270Dnevvodnwbj peptide B (Bld) [Mass/Vol]254.0 pg/mLHigh5-100The [facility] Physician GroupComment on above: Result Comment: PERFORMED BY:[address] DHEERAJSEATT[place], [place] [phone] MEDICAL DIRECTORJAJA WHITE M.D.Performed By: #### CBC, CK, PT, BNP, PTT, HS TROP ####[facility] [place] [address] USABacteria [Presence] in Urine by AutomatedOrdered By: Marcos Martin on 90-08-4359Dntlcmle Auto Ql (U) Bacteria [Presence] in Urine by AutomatedNone [facility] HospitalBasic Metabolic Panelon 69-95-3412Ukqfj gap [Moles/Vol]8.3 mmol/LNormal 6.0-15.0The [facility] Physician GroupComment on above:Performed By: #### CUBLD, LACTIC, HEPATIC, TSH3, BMP ####[address] [place] [address] USACalcium [Mass/Vol]8.3 mg/dLLow8.6-10.3The [facility] Physician GroupComment on above:Performed By: #### CUBLD, LACTIC, HEPATIC, TSH3, BMP ####[address] [address] [place] Chloride [Moles/Vol]98 mmol/SDllnir66-120Znn [facility] Physician Laird HospitalComment on above:Performed By: #### CUBLD, LACTIC, HEPATIC, TSH3, BMP ####[address] USACO2 [Moles/Vol]30.2 mmol/NUyyffl48.0-31.0The [facility] Physician GroupComment on above:Performed By: #### CUBLD, LACTIC, HEPATIC, TSH3, BMP ####[address] [address] USACreatinine [Mass/Vol]3.07 mg/dLHigh0.70-1.30 The [facility] Physician GroupComment on above:Performed By: #### CUBLD, LACTIC, HEPATIC, TSH3, BMP ####[address] [address] USACreatinine Clr Calc Unojnmjd34.97NormAdventHealth Wauchula Physician Group Comment on above:Result Comment: PERFORMED BY:[address] SOAERSCAMDEN, [place] [phone] MEDICAL DIRECTORJAJA CATES M.D.Performed By: #### CUBLD, LACTIC, HEPATIC, TSH3, BMP ####[address] [address] USAEstimated GFR19.558 mL/MinNormalThTeton Valley Hospital Physician Laird HospitalComment on above:Performed By: #### CUBLD, LACTIC, HEPATIC, TSH3, BMP ####[place] [address] USAGlucose [Mass/Vol]125 mg/sHHslw06-448Vvz [facility] Physician GroupComment on above:Result Comment: Random Glucose Reference Range is dependent on time and content of last meal. Glucose of more than 200 mg/dL in a nonstressed, ambulatory subject supports the diagnosis of Diabetes Mellitus. ADA recommended reference rangePerformed By: #### CUBLD, LACTIC, HEPATIC, TSH3, BMP ####[place] [address] USAPotassium [Moles/Vol]4.5 mmol/LNormal3.5-5.1 The [facility] Physician Laird HospitalComment on above:Performed By: #### CUBLD, LACTIC, HEPATIC, TSH3, BMP ####[place] [address] USASodium [Moles/Vol]132 mmol/NQrs289-729Oyo [facility] Comment on above:Performed By: #### CUBLD, LACTIC, HEPATIC, TSH3, BMP ####[address] USAUrea nitrogen [Mass/Vol]40 mg/dLHigh7-25The [facility] Physician Laird HospitalComment on above:Performed By: #### CUBLD, LACTIC, HEPATIC, TSH3, BMP ####[place] [address] USABasophils Auto (Bld) [#/Vol]Ordered By: Marcos Martin on 93-46-2901Ecgmnxdiq (Bld) [#/Vol]Automated basophil count0.0-0.2FMercy Health – The Jewish HospitalBasophils/100 WBC Auto (Bld)Ordered By: Marcos Martin on 72-12-7318Csgwivvwi/100 WBC (Bld)Automated basophil %.[facility] HospitalBilirubin Test strip Ql (U)Ordered By: Marcos Martin on 13-25-3016Ulflvvlhb Ql (U)Bilirubin.total [Presence] in Urine by Test stripNegativeSuburban Community Hospital & Brentwood HospitalBilirubin.direct [Mass/volume] in Serum or PlasmaOrdered By: Marcos Martin on 03-10-2024 Bilirubin.direct [Mass/Vol]Bilirubin.direct [Mass/volume] in Serum or PlasmaHigh 0.03-0.18FMercy Health – The Jewish HospitalBilirubin.total [Mass/volume] in Serum or PlasmaOrdered By: Marcos Martin on 52-26-4657Asypokysg [Mass/Vol] Bilirubin.total [Mass/volume] in Serum or Plasma0.3-1.0[facility] HospitalBioFire Detectedon 05-71-5550MggIriy DetectedDetectedCritically abnormalNot DetecteThe [facility] Physician GroupComment on above:Result Comment: This is a duplicate RP2.1 COVID (PCR) result to be used for statistical tracking purpose only.PERFORMED BY:[address] [place]IDGEES[place], [place] [phone] MEDICAL DIRECTORJAJA WHITE M.D.Performed By: #### BIOFIRECOVDET, RESP PANEL UPP. ####[phone] USABlood Cultureon 84-32-4940Fewgkjei identified Cx Nom (Bld)NO GROWTH 5 DAYS PERFORMED BY: [facility] [id number] PATHOLOGIST FRONT DESK ASSOCIATE JAJA CATES M.D.NormalThe [facility] Physician GroupComment on above: Performed By: #### CUBLD, LACTIC, HEPATIC, TSH3, BMP ####[phone] USACOVID-19 Detected/Not Detected Ordered By: Marcos Martin on 32-63-6179DDQA-CoV-2 (COVID-19) RNA SMITHA+non-probe Ql (Nph)Not detectedAbnormalNot DetectDiley Ridge Medical CenterComment on above:This is a duplicate RP2.1 COVID (PCR) result to be used for statistical tracking purpose only.Calcium [Mass/volume] in Serum or PlasmaOrdered By: Marcos Martin on 40-56-9918Cofxrod [Mass/Vol]Calcium [Mass/volume] in Serum or PlasmaLow 8.6-10.3FMercy Health – The Jewish HospitalCarbon dioxide, total [Moles/volume] in Serum or PlasmaOrdered By: Marcos Martin on 51-19-0124VU6 [Moles/Vol]Carbon dioxide, total [Moles/volume] in Serum or Zvbjpb28.0-31.0[facility] HospitalChloride [Moles/volume] in Serum or PlasmaOrdered By: Marcos Martin on 43-39-3190Tbmwndlz [Moles/Vol]Chloride [Moles/volume] in Serum or Plasma 98-107[facility] & Brentwood HospitalColor Auto (U)Ordered By: Marcos Martin on 07-27-8088Umapt (U)Color of Urine by AutoYellowSuburban Community Hospital & Brentwood Hospital Complete Blood Count Auto Diffon 39-53-0760Bhfpacebk (Bld) [#/Vol]0.1 10*3/uL Normal0.0-0.2The [facility] Physician GroupComment on above:Result Comment: PERFORMED BY:[address] [place], [place] [phone] MEDICAL DIRECTORJAJA CATES M.D. Performed By: #### CBC, CK, PT, BNP, PTT, HS TROP ####[address] [address] USABasophils/100 WBC (Bld)1.4 %Normal. The [facility] Physician GroupComment on above:Performed By: #### CBC, CK, PT, BNP, PTT, HS TROP ####[address] [address] USAEosinophils (Bld) [#/Vol]0.5 10*3/uLHigh0.0-0.45The [facility] Physician GroupComment on above:Performed By: #### CBC, CK, PT, BNP, PTT, HS TROP ####[address] [address] [place] Eosinophils/100 WBC (Bld)5.9 %Normal.The [facility] Physician GroupComment on above:Performed By: #### CBC, CK, PT, BNP, PTT, HS TROP ####[place] [address] USAErythrocyte distribution width (RBC) [Ratio]15.4 %High12.0-14.8The [facility] Physician GroupComment on above: Performed By: #### CBC, CK, PT, BNP, PTT, HS TROP ####[place] [address] USAHematocrit (Bld) [Volume fraction] 27.9 %Low38.8-50.0The [facility] Physician GroupComment on above:Performed By: #### CBC, CK, PT, BNP, PTT, HS TROP ####[place] [address] USAHemoglobin (Bld) [Mass/Vol]9.3 g/dLLow13.0-17.0The [facility] Physician GroupComment on above:Performed By: #### CBC, CK, PT, BNP, PTT, HS TROP ####[place] [address] USALymphocytes (Bld) [#/Vol]1.0 10*3/uLNormal1.00-4.8The [facility] Physician GroupComment on above:Performed By: #### CBC, CK, PT, BNP, PTT, HS TROP ####[place] [address] [place] Lymphocytes/100 WBC (Bld)11.9 %Normal.The [facility] Physician GroupComment on above:Performed By: #### CBC, CK, PT, BNP, PTT, HS TROP ####[place] [address] USAMCH (RBC) [Entitic mass]33.6 haPstrrr22.5-35.2The [facility] Physician GroupComment on above:Performed By: #### CBC, CK, PT, BNP, PTT, HS TROP ####[address] [place] [address] USAMCV (RBC) [Entitic vol]100.5 aKGweloa42.5-101The [facility] Physician GroupComment on above:Performed By: #### CBC, CK, PT, BNP, PTT, HS TROP ####[address] [id number] USAMean Corpuscular HGB Conc33.5 g/bIObbcip56.5-35.6The Firsthealth Physician GroupComment on above:Performed By: #### CBC, CK, PT, BNP, PTT, HS TROP ####[place] [id number] [place] Monocytes (Bld) [#/Vol]0.8 10*3/uLNormal0.0-0.8[facility] Comment on above:Performed By: #### CBC, CK, PT, BNP, PTT, HS TROP ####[place] [id number] USAMonocytes/100 WBC (Bld)22.24 %High0.00-20.00The Firsthealth Physician GroupComment on above:Result Comment: For adults in ED, MDW > 20.0 may be associated with a higher risk of sepsis during the first 12 hrs of hospital admissionPerformed By: #### CBC, CK, PT, BNP, PTT, HS TROP ####[place] [id number] USAMonocytes/100 WBC (Bld)9.2 %Normal.The Firsthealth Physician GroupComment on above:Performed By: #### CBC, CK, PT, BNP, PTT, HS TROP ####[place] [id number] [place] Neutrophils (Bld) [#/Vol]6.1 10*3/uLNormal1.8-7.7The [facility] Comment on above:Performed By: #### CBC, CK, PT, BNP, PTT, HS TROP ####[place] [id number] USANeutrophils/100 WBC (Bld)71.6 %Normal.The Firsthealth Physician GroupComment on above:Performed By: #### CBC, CK, PT, BNP, PTT, HS TROP ####[place] [address] USANRBC%0.0 /100{WBC}Normal0-0.5The Firsthealth Physician GroupComment on above:Performed By: #### CBC, CK, PT, BNP, PTT, HS TROP ####[address] Platelet mean volume (Bld) [Entitic vol]7.6 fLNormal6.6-10.1The Firsthealth Physician GroupComment on above:Performed By: #### CBC, CK, PT, BNP, PTT, HS TROP ####[address] Platelets (Bld) [#/Vol]247 10*3/yGBjobvy319-042Pky [facility] Comment on above:Performed By: #### CBC, CK, PT, BNP, PTT, HS TROP ####[place] [address] USARBC (Bld) [#/Vol] 2.78 10*6/uLLow3.90-5.60The Firsthealth Physician GroupComment on above:Performed By: #### CBC, CK, PT, BNP, PTT, HS TROP ####[place] [address] USAWBC (Bld) [#/Vol]8.5 10*3/uLNormal4.1-10.5The Firsthealth Physician GroupComment on above:Performed By: #### CBC, CK, PT, BNP, PTT, HS TROP ####[address]Creatine Kinaseon 13-83-2108RI [Catalytic activity/Vol]22 U/VOee41-811 The Firsthealth Physician GroupComment on above:Performed By: #### CBC, CK, PT, BNP, PTT, HS TROP ####[address] [place] [address] USACreatine kinase [Enzymatic activity/volume] in Serum or Plasma Ordered By: Marcos Martin on 30-21-9863FX [Catalytic activity/Vol]Creatine kinase [Enzymatic activity/volume] in Serum or TkqilrCuc85-210EroxmnmiaSuburban Community Hospital & Brentwood HospitalCreatinine [Mass/volume] in Serum or PlasmaOrdered By: Marcos Martin on 26-14-6464Rukgiybwhh [Mass/Vol]Creatinine [Mass/volume] in Serum or Plasma High0.70-1.30[facility] & Brentwood HospitalDipstick and Microscopicon 19-53-9320Eqcxourgqv (U)ClearNormalClearThe Firsthealth Physician GroupComment on above:Order Comment: Name Collection Type:: Chou CatheterPerformed By: #### ADDONUAPLUS ####[address] [address] USABacteria,UrineNone SeenNormalNone SeenThe [facility] Group Comment on above:Order Comment: Name Collection Type:: Chou CatheterPerformed By: #### ADDONUAPLUS ####[address] [address] USABilirubin,UrineNegativeNormalNegativeBartow Regional Medical Center Physician GroupComment on above:Order Comment: Name Collection Type:: Chou CatheterPerformed By: #### ADDONUAPLUS ####[address] [address] USAColor (U)Light-YellowNormalYellowBartow Regional Medical Center Physician GroupComment on above:Order Comment: Name Collection Type:: Chou CatheterPerformed By: #### ADDONUAPLUS ####[address] [address] USAGlucose Ql (U)NormalNormalNormalThe Firsthealth Physician GroupComment on above:Order Comment: Name Collection Type:: Chou CatheterPerformed By: #### ADDONUAPLUS ####[address] [address] USAHyaline Casts,UrineInnumerableHigh0-8The Firsthealth Physician GroupComment on above:Order Comment: Name Collection Type:: Chou CatheterPerformed By: #### ADDONUAPLUS ####[address] [address] USAKetones Ql (U)NegativeNormalNegative The Firsthealth Physician GroupComment on above:Order Comment: Name Collection Type:: Chou CatheterPerformed By: #### ADDONUAPLUS ####[address] [address] USALeukocyte esterase Test strip Ql (U)NegativeNormalNegativeThe Firsthealth Physician GroupComment on above:Order Comment: Name Collection Type:: Chou CatheterPerformed By: #### ADDONUAPLUS ####[address] [address] [place] Mucus,UrineRareNormalThe Firsthealth Physician GroupComment on above:Order Comment: Name Collection Type:: Chou CatheterResult Comment: PERFORMED BY:[place] [address] [address] [place] [phone] 14PATHOLOGIST MEDICAL DIRECTORJAJA CATES M.D.Performed By: #### ADDONUAPLUS ####[address] [address] USANitrite,UrineNegativeNormalNegativeThe Firsthealth Physician GroupComment on above:Order Comment: Name Collection Type:: Chou CatheterPerformed By: #### ADDONUAPLUS ####[address] [address] USAOccult Blood,UrineTraceHighNegativeBartow Regional [facility] Center Physician GroupComment on above:Order Comment: Name Collection Type:: Chou CatheterResult Comment: PERFORMED BY:[place] [address] [address] [place] [phone] MEDICAL DIRECTORJAJA CATES M.D. Performed By: #### ADDONUAPLUS ####[address] [address] USApH (U)5.0 [pH]Normal5.0-9.0The Firsthealth Physician GroupComment on above:Order Comment: Name Collection Type:: Chou Catheter Performed By: #### ADDONUAPLUS ####[address] [address] USAProtein,UrineNegativeNormalNegativeBartow Regional Medical Center Physician GroupComment on above:Order Comment: Name Collection Type:: Chou CatheterPerformed By: #### ADDONUAPLUS ####[address] [address] USARBC,Urine5 [HPF]High0-4The Firsthealth Physician GroupComment on above:Order Comment: Name Collection Type:: Chou Catheter Performed By: #### ADDONUAPLUS ####[address] [address] USASpecificy [place],Urine1.562Cezrkr2.001-1.030The Firsthealth Physician GroupComment on above:Order Comment: Name Collection Type:: Chou CatheterPerformed By: #### ADDONUAPLUS ####[address] [address] USASquamous Epithelial Cell,Urine1 [HPF] Normal0-2The Firsthealth Physician GroupComment on above:Order Comment: Name Collection Type:: Chou CatheterPerformed By: #### ADDONUAPLUS ####[address] [address] USAUrobilinogen,Urine NormalNormalNormLancaster Municipal Hospitale Firsthealth Physician GroupComment on above:Order Comment: Name Collection Type:: Chou CatheterPerformed By: #### ADDONUAPLUS ####[address] [address] [place] WBC,Urine5 [HPF]High0-4The Firsthealth Physician GroupComment on above:Order Comment: Name Collection Type:: Chou CatheterPerformed By: #### ADDONUAPLUS ####[address] [address] USAECG 12 lead ECGon 16-20-9497VIR 12 lead ECGNormLancaster Municipal Hospitale [facility] Eosinophils Auto (Bld) [#/Vol]Ordered By: Marcos Martin on 85-70-3687Iwcktvgaklj (Bld) [#/Vol]Automated eosinophil countHigh0.0-0.45[facility] HospitalEosinophils/100 WBC Auto (Bld)Ordered By: Marcos Martin on 03-10-2024 Eosinophils/100 WBC (Bld)Automated eosinophil %.[facility] HospitalEpithelial cells.squamous [#/area] in Urine sediment by Automated count Ordered By: Marcos Martin on 80-55-8146Fdmtctblef cells.squamous Auto (Urine sed) [#/Area]Epithelial cells.squamous [#/area] in Urine sediment by Automated count 0-2FMercy Health – The Jewish HospitalErythrocyte distribution width Auto (RBC) [Ratio]Ordered By: Marcos Martin on 14-68-9745Bxdmlnmvuph distribution width (RBC) [Ratio]Erythrocyte distribution width [Ratio] by Automated oowqiDyli87.0-14.8 [facility] Brent[facility] HospitalErythrocytes [#/area] in Urine sediment by Automated countOrdered By: Marcos Martin on 52-09-7037WJR Auto (Urine sed) [#/Area]Erythrocytes [#/area] in Urine sediment by Automated countHigh0-4 [facility] HospitalGlobulin Calc (S) [Mass/Vol]Ordered By: Marcos Martin on 19-33-5041Jrdnkzej (S) [Mass/Vol]Serum globulin measurement by calculation (mass/volume)[facility] HospitalGlucose [Mass/volume] in Serum or PlasmaOrdered By: Marcos Martin on 71-00-0525Pnzulnq [Mass/Vol]Glucose [Mass/volume] in Serum or ShfsxgJfxx66-337QxmyefrevSuburban Community Hospital & Brentwood Hospital Comment on above:ADA recommended reference rangeRandom Glucose Reference Range is dependent on time and content of last meal. Glucose of more than 200 mg/dL in a nonstressed, ambulatory subject supports the diagnosisof Diabetes Mellitus. Glucose [Mass/volume] in Urine by Test stripOrdered By: Marcos Martin on 46-95-5398Kqeacvz Test strip (U) [Mass/Vol]Glucose [Mass/volume] in Urine by Test stripNormalSuburban Community Hospital & Brentwood HospitalHematocrit Auto (Bld) [Volume fraction]Ordered By: Marcos Martin on 57-82-3754Rrkajrfrrc (Bld) [Volume fraction] Hematocrit [Volume Fraction] of Blood by Automated xgotbLkf55.8-50.0[facility] Brentwood HospitalHemoglobin Test strip Ql (U)Ordered By: Marcos Martin on 38-97-3312Gjwvkzlrxe Ql (U)Hemoglobin [Presence] in Urine by Test stripHigh NegativeSuburban Community Hospital & Brentwood HospitalHemoglobin [Mass/volume] in Blood Ordered By: Marcos Martin on 42-41-1037Ugceplfujn (Bld) [Mass/Vol]Hemoglobin [Mass/volume] in OyrkqQei17.0-17.0[facility] Brentwood HospitalHepatic Panel on 32-37-0798Gdqezyd [Mass/Vol]2.7 g/dLLow3.5-5.7[facility] Comment on above:Performed By: #### CUBLD, LACTIC, HEPATIC, TSH3, BMP ####[place] [address] [place] [id number] [place] Albumin/Globulin [Mass ratio]0.9 {ratio}NormalThe [facility] Comment on above:Performed By: #### CUBLD, LACTIC, HEPATIC, TSH3, BMP ####[place] [address] [place] [address] USAALP [Catalytic activity/Vol]111 U/DXirs37-035Rxk Firsthealth Physician GroupComment on above:Performed By: #### CUBLD, LACTIC, HEPATIC, TSH3, BMP ####[address] [address] USAALT [Catalytic activity/Vol]10 U/LNormal7-52The Firsthealth Physician GroupComment on above: Performed By: #### CUBLD, LACTIC, HEPATIC, TSH3, BMP ####[address] [address] USAAST [Catalytic activity/Vol]18 U/BSqqbdh36-05Dkm [facility] Physician GroupComment on above:Performed By: #### CUBLD, LACTIC, HEPATIC, TSH3, BMP ####[address] [address] USABilirubin [Mass/Vol]0.6 mg/dLNormal0.3-1.0The [facility] Physician GroupComment on above:Performed By: #### CUBLD, LACTIC, HEPATIC, TSH3, BMP ####[place] [address] USABilirubin,Indirect0.4 mg/dLNoAsheville Specialty Hospital Physician [facility] Comment on above:Performed By: #### CUBLD, LACTIC, HEPATIC, TSH3, BMP ####[address] Bilirubin.indirect [Mass/Vol]0.20 mg/dLHigh0.03-0.18The [facility] Physician GroupComment on above:Performed By: #### CUBLD, LACTIC, HEPATIC, TSH3, BMP ####[address] Globulin (S) [Mass/Vol]3.0 g/dLNoAsheville Specialty Hospital Physician [facility] HospitalComment on above:Performed By: #### CUBLD, LACTIC, HEPATIC, TSH3, BMP ####[place] [address] USAProtein [Mass/Vol]5.7 g/dLLow6.4-8.9The [facility] Physician GroupComment on above:Performed By: #### CUBLD, LACTIC, HEPATIC, TSH3, BMP ####[place] [address] USAHyaline casts [#/area] in Urine sediment by Automated countOrdered By: Marcos Martin on 74-48-9347Jwktnjd casts Auto (Urine sed) [#/Area]Hyaline casts [#/area] in Urine sediment by Automated countHigh0-8 [facility] Brentwood HospitalINR in Platelet poor plasma by Coagulation assayOrdered By: Marcos Martin on 34-48-3712XIS Coag (PPP) [Relative time]INR in Platelet poor plasma by Coagulation assaySuburban Community Hospital & Brentwood Hospital Comment on above:INR Therapeutic Range A) [...] Ql (U)Ketones [Presence] in Urine by Test stripNegativeSuburban Community Hospital & Brentwood HospitalLaboratory - Microbiology and Antimicrobial susceptibilityOrdered By: Marcos Martin on 91-78-7333Ivvrqcwn identified Cx Nom (Bld)NO GROWTH 5 DAYSSuburban Community Hospital & Brentwood HospitalBacteria identified Cx Nom (Bld)NO GROWTH 5 DAYSSuburban Community Hospital & Brentwood HospitalLactate [Moles/volume] in Serum or PlasmaOrdered By: Marcos Martin on 77-75-6096Fjkfqhn [Moles/Vol]Lactate [Moles/volume] in Serum or Plasma0.5-2.2FMercy Health – The Jewish HospitalLactic Acidon 03-10-2538Wcxgxdz [Moles/Vol]1.2 mmol/LNormal0.5-2.2The [facility] Physician GroupComment on above:Result Comment: PERFORMED BY:[facility] [place] [address] [place], [place] [phone] MEDICAL DIRECTORJAJA CATES M.D.Performed By: #### CUBLD, LACTIC, HEPATIC, TSH3, BMP ####[facility] [place] [address] USALeukocyte esterase [Presence] in Urine by Test stripOrdered By: Marcos Martin on 43-90-4243Qtgsnxpiq esterase Test strip Ql (U)Leukocyte esterase [Presence] in Urine by Test stripNegativeSuburban Community Hospital & Brentwood HospitalLeukocytes [#/area] in Urine sediment by Automated countOrdered By: Marcos Martin on 19-97-0023SBU Auto (Urine sed) [#/Area]Leukocytes [#/area] in Urine sediment by Automated countHigh0-4FMercy Health – The Jewish HospitalLeukocytes [#/volume] corrected for nucleated erythrocytes in Blood by Automated counOrdered By: Marcos Martin on 32-25-0481AVG corrected for nucl RBC Auto (Bld) [#/Vol]Leukocytes [#/volume] corrected for nucleated erythrocytes in Blood by Automated coun 4.1-10.5FMercy Health – The Jewish HospitalLymphocytes Auto (Bld) [#/Vol]Ordered By: Marcos Martin on 82-16-1276Gcpphbdoroz (Bld) [#/Vol]Lymphocytes [#/volume] in Blood by Automated count1.00-4.8[facility] Brentwood HospitalLymphocytes/100 WBC Auto (Bld)Ordered By: Marcos Martin on 96-67-9647Yjgqwaiagos/100 WBC (Bld) Lymphocytes/100 leukocytes in Blood by Automated count.[facility] Brentwood HospitalMCH Auto (RBC) [Entitic mass]Ordered By: Marcos Martin on 03-10-2024 MCH (RBC) [Entitic mass]MCH [Entitic mass] by Automated count27.5-35.2FMercy Health – The Jewish HospitalMCHC Auto (RBC) [Mass/Vol]Ordered By: Marcos Martin on 60-55-2988RVQT (RBC) [Mass/Vol]MCHC [Mass/volume] by Automated count32.5-35.6 [facility] Brentwood HospitalMCV Auto (RBC) [Entitic vol]Ordered By: Marcos Martin on 37-39-9469LUE (RBC) [Entitic vol]MCV [Entitic volume] by Automated count83.5-101[facility] Brentwood HospitalMonocyte distribution width [Entitic volume] in Blood by AutomatedOrdered By: Marcos Martin on 03-10-2024 Monocyte distribution width Auto (Bld) [Entitic vol]Monocyte distribution width [Entitic volume] in Blood by AutomatedHigh0.00-20.00[facility] Brentwood HospitalComment on above:For adults in ED, MDW > 20.0 may be associated with a higher risk of sepsis during the first 12 hrs of hospital admissionMonocytes Auto (Bld) [#/Vol]Ordered By: Marcos Martin on 04-49-6148Hwckgzbjf (Bld) [#/Vol] Automated blood monocyte count0.0-0.8[facility] Monocytes/100 WBC Auto (Bld)Ordered By: Marcos Martin on 25-64-0523Aqrruinil/100 WBC (Bld)Automated monocyte %.[facility] Brent[facility] HospitalMucus [Presence] in Urine by AutomatedOrdered By: Marcos Martin on 93-48-3178Vubkx Auto Ql (U)Mucus [Presence] in Urine by AutomatedSuburban Community Hospital & Brentwood HospitalNatriuretic peptide B [Mass/Vol]Ordered By: Marcos Matrin on 52-52-7134Ampinvuypzu peptide B (Bld) [Mass/Vol]BNP ser/plasHigh5-100[facility] Neutrophils Auto (Bld) [#/Vol]Ordered By: Marcos Martin on 78-16-0629Mjmgymqybsy (Bld) [#/Vol]Neutrophils [#/volume] in Blood by Automated count1.8-7.7FMercy Health – The Jewish HospitalNeutrophils/100 WBC Auto (Bld)Ordered By: Marcos Martin on 30-19-9370Qfnfkwofbld/100 WBC (Bld)Automated neutrophil %.[facility] Brentwood HospitalNitrite Test strip Ql (U)Ordered By: Marcos Martin on 03-10-2024 Nitrite Ql (U)Nitrite [Presence] in Urine by Test stripNegativeSuburban Community Hospital & Brentwood HospitalNo Panel InformationOrdered By: Marcos Martin on 03-10-2024 Estimated GFR (CKD-EPI)19.558 mL/MinSuburban Community Hospital & Brentwood HospitalPharmacy Creatinine Clearance (Chem19.97[facility] HospitalNO GROWTH 5 DAYS [facility] Brentwood HospitalNucleated erythrocytes [Presence] in Blood by Automated countOrdered By: Marcos Martin on 91-13-7365Yblcxccmz RBC Auto Ql (Bld) Nucleated erythrocytes [Presence] in Blood by Automated count0-0.5FMercy Health – The Jewish HospitalPartial Thromboplastin Timeon 31-86-9527mDTC Coag (Bld) [Time]38.8 sHigh25.1-36.5The Firsthealth Physician GroupComment on above:Result Comment: A hematocrit value greater than 55% may lead to inaccurate results in coagulation testing. Patients having hematocrit values >55% require a special collection tube for coagulation studies. Please contact the laboratory at [phone] for redraw instructions.PERFORMED BY:[place] [address] [place], [place] [phone] MEDICAL DIRECTORJAJA CATES M.D.Performed By: #### CBC, CK, PT, BNP, PTT, HS TROP ####[facility] Platelet mean volume Auto (Bld) [Entitic vol]Ordered By: Marcos Martin on 27-56-3217Ijvlzgyo mean volume (Bld) [Entitic vol]Platelet mean volume [Entitic volume] in Blood by Automated count6.6-10.1FMercy Health – The Jewish Hospital Platelets Auto (Bld) [#/Vol]Ordered By: Marcos Martin on 80-72-0101Arxgmvhsu (Bld) [#/Vol]Platelets [#/volume] in Blood by Automated sjert950-029FldoqqkkvSuburban Community Hospital & Brentwood HospitalPotassium [Moles/volume] in Serum or PlasmaOrdered By: Marcos Martin on 20-66-8571Txdixcdsa [Moles/Vol]Potassium [Moles/volume] in Serum or Plasma3.5-5.1FMercy Health – The Jewish HospitalProtein Test strip (U) [Mass/Vol]Ordered By: Marcos Martin on 30-48-2940Fecwexw (U) [Mass/Vol]Protein [Mass/volume] in Urine by Test stripNegativeSuburban Community Hospital & [facility] Protein [Mass/volume] in Serum or PlasmaOrdered By: Marcos Martin on 03-10-2024 Protein [Mass/Vol]Protein [Mass/volume] in Serum or PlasmaLow6.4-8.9[facility] Brentwood HospitalProthrombin Time INRon 44-33-3934EPD Coag (PPP) [Relative time]2.7 {INR}NormalThe Firsthealth Physician GroupComment on above:Result Comment: INR Therapeutic [...] CBC, CK, PT, BNP, PTT, HS TROP ####[facility] [place] [address] USAPT Coag (PPP) [Time] 30.4 sHigh9.0-12.9[facility] Physician GroupComment on above:Result Comment: A hematocrit value greater than 55% may lead to inaccurate results in coagulation testing. Patients having hematocrit values >55% require a special collection tube for coagulation studies. Please contact the laboratory at [phone] for redraw instructions.Performed By: #### CBC, CK, PT, BNP, PTT, HS TROP ####[facility] [address] [place] [address] USAProthrombin time (PT)Ordered By: Marcos Martin on 81-06-6659XW Coag (PPP) [Time]Prothrombin time (PT)High9.0-12.9[facility] Brentwood HospitalComment on above:A hematocrit value greater than 55% may lead to inaccurate results in coagulation testing. Patientshaving hematocrit values >55% require a special collection tube for coagulation studies. Please contact the laboratory at [phone] for redraw instructions.RBC Auto (Bld) [#/Vol]Ordered By: Marcos Martin on 81-51-0450OMB (Bld) [#/Vol]Erythrocytes [#/volume] in Blood by Automated countLow3.90-5.60[facility] HospitalRespiratory (Upper) Panel, PCRon 00-48-3277Fxlhomfhpmd (Upper) Panel, PCRNormAdventHealth Wauchula Physician GroupComment on above:Performed By: #### BIOFIRECOVDET, RESP PANEL UPP. ####[facility] [address] [place] [address] [facility] Respiratory pathogens DNA and RNA panel - Nasopharynx by SMITHA with non-probe detectionOrdered By: Marcos Martin on 66-45-0435Qdbuqzbjxch pathogens DNA and RNA panel SMITHA+non-probe (Nph)Respiratory pathogens DNA and RNA panel - Nasopharynx by SMITHA with non-probe detectionSt. Francis Hospitalerum or plasma albumin/globulin mass ratioOrdered By: Marcos Martin on 24-49-4826Cwlamxq/Globulin [Mass ratio]Serum or plasma albumin/globulin mass ratioSt. Francis Hospitalerum or plasma anion gap determinationOrdered By: Marcos Martin on 53-38-2813Yndlr gap [Moles/Vol]Serum or plasma anion gap determination6.0-15.[address] [facility] [facility] Hospitalerum or plasma non-glucuronidated bilirubin measurement (mass/volume)Ordered By: Marcos Martin on 91-89-7500Zabpcrjma.indirect [Mass/Vol]Serum or plasma non-glucuronidated bilirubin measurement (mass/volume)St. Francis Hospitalodium [Moles/volume] in Serum or PlasmaOrdered By: Marcos Martin on 94-54-5816Mzdqjg [Moles/Vol]Sodium [Moles/volume] in Serum or BwditgEgc096-873PoemeffseSuburban Community Hospital & [facility] Hospital Specific gravity Test strip (U) [Rel density]Ordered By: Marcos Martin on 51-02-2836Jzbdxxkx gravity (U) [Rel density]Specific gravity of Urine by Test strip1.001-1.030[facility] Brentwood HospitalThyroid Stimulating Hormoneon 57-68-9826AQB Qn11.48 m[IU]/LHigh0.45-5.33The [facility] Physician GroupComment on above:Result Comment: PERFORMED BY:[place] [address] [place], [place] [phone] MEDICAL DIRECTORJAJA CATES M.D.Performed By: #### CUBLD, LACTIC, HEPATIC, TSH3, BMP ####[address] [address] [facility] Thyrotropin [Units/volume] in Serum or PlasmaOrdered By: Mitchell Reyes on 23-19-5626PDN QnThyrotropin [Units/volume] in Serum or PlasmaHigh0.45-5.33 [facility] Brentwood HospitalTroponin I High Sensitivityon 03-10-2024 Troponin I High Eiewddgljey92.1 pg/mLNormal0.0-20.0[facility] Comment on above:Result Comment: PERFORMED BY:[address] [place]GEES[place], [place] [phone] MEDICAL DIRECTORJAJA CATES M.D.Performed By: #### CBC, CK, PT, BNP, PTT, HS TROP ####[facility] [address] [place] [address] [facility] Troponin I.cardiac [Mass/volume] in Serum or Plasma by Detection limit <= 0.01 ng/Ordered By: Marcos Martin on 72-40-4756Ofamdzdt I.cardiac DL <= 0.01 ng/mL [Mass/Vol]Troponin I.cardiac [Mass/volume] in Serum or Plasma by Detection limit <= 0.01 ng/0.0-20.0[facility] Brentwood HospitalUrea nitrogen [Mass/volume] in Serum or PlasmaOrdered By: Marcos Martin on 11-09-4421Icfq nitrogen [Mass/Vol] Urea nitrogen [Mass/volume] in Serum or PlasmaBraxton County Memorial Hospital7-25[facility] & Brentwood HospitalUrine Cultureon 70-03-1281Opywfysf identified Cx Nom (U)No Growth 2 Days PERFORMED BY: [place] [address] PATHOLOGIST FRONT DESK ASSOCIATE JAJA CATES M.D.NormalThe Firsthealth Physician GroupComment on above: Performed By: #### CUU ####[facility] [address] [place] [address] USAUrine cultureOrdered By: Mitchell Reyes on 66-54-6115Tbfdwroa identified Cx Nom (U)Urine cultureSuburban Community Hospital & Brentwood HospitalBacteria identified Cx Nom (U)Urine cultureSuburban Community Hospital & Brentwood HospitalUrobilinogen Test strip (U) [Mass/Vol]Ordered By: Marcos Martin on 72-06-5086Zrvicafurcia (U) [Mass/Vol]Urobilinogen [Mass/volume] in Urine by Test stripNormalSuburban Community Hospital & Brentwood HospitalWBC Auto (Bld) [#/Vol]Ordered By: Marcos Martin on 96-96-6249HEA (Bld) [#/Vol]Leukocytes [#/volume] in Blood by Automated count4.1-10.5FMercy Health – The Jewish HospitalX-ray reportOrdered By: Shaquille Mahoney on 61-78-7014Xsflg reportMEMORIAL HOSPITAL Main [place] [address] [place] [address] XRay Report Signed Patient: Tavo Wallis Jr MR# : [id number] : 1940 Acct:[id number] Age/Sex: 83 / M ADM Date: 5 Loc: ER Room: Type: [facility] ER Attending Dr: Copies to: [...] Shaquille Mahoney M.D.03/10/2024 10:26 AM Dictation Location: [place] [address] Transcribed By: NOLVIA 03/10/24 1026 Dictated By: Shaquille Mahoney II, MD 03/10/24 1025 Signed By: 03/10/24 [facility] Work Phone: XR chest 1V portableon 25-16-4598KH chest 1V portable NormalThe Firsthealth Physician GroupaPTT in Platelet poor plasma by Coagulation assayOrdered By: Marcos Martin on 92-76-8034iBCF Coag (PPP) [Time]Activated partial thromboplastin time (aPTT) in platelet poor plasma by coagulation [facility] 25.1-36.5FMercy Health – The Jewish HospitalComment on above:A hematocrit value greater than 55% may lead to inaccurate results in coagulation testing. Patients having hematocrit values >55% require a special collection tube for coagulation studies. Please contact the laboratory at [phone] for redraw instructions. pH Test strip (U)Ordered By: Marcos Martin on 54-96-4137bJ (U)pH of Urine by Test strip5.0-9.0[facility] HospitalAlanine aminotransferase [Enzymatic activity/volume] in Serum or PlasmaOrdered By: Sandip Bunting on 46-01-8965CJA [Catalytic activity/Vol]Alanine aminotransferase [Enzymatic activity/volume] in Serum or Plasma7-52[facility] HospitalAlbumin [Mass/volume] in Serum or Plasma by Bromocresol green (BCG) dye binding methoOrdered By: Sandip Bunting on 57-99-6497Xjmdxap BCG dye [Mass/Vol]Albumin [Mass/volume] in Serum or Plasma by Bromocresol green (BCG) dye binding methoLow3.5-5.7FMercy Health – The Jewish HospitalAlkaline phosphatase [Enzymatic activity/volume] in Serum or PlasmaOrdered By: Sandip Bunting on 49-21-1799QUY [Catalytic activity/Vol] Alkaline phosphatase [Enzymatic activity/volume] in Serum or PjkvkhQvme18-642 [facility] HospitalAspartate aminotransferase [Enzymatic activity/volume] in Serum or PlasmaOrdered By: Sandip Bunting on 75-25-2165PAZ [Catalytic activity/Vol]Aspartate aminotransferase [Enzymatic activity/volume] in Serum or Cqcuej84-51NnmisoycpSuburban Community Hospital & Brentwood HospitalBasophils Auto (Bld) [#/Vol]Ordered By: Sandip Bunting on 35-18-5808Eqkkhksvd (Bld) [#/Vol]Automated basophil count0.0-0.2FMercy Health – The Jewish HospitalBasophils/100 WBC Auto (Bld)Ordered By: Sandip Bunting on 88-67-3287Axppxjmwy/100 WBC (Bld)Automated basophil %.[facility] HospitalBilirubin.total [Mass/volume] in Serum or PlasmaOrdered By: Sandip Bunting on 96-43-5336Ezzvoqcne [Mass/Vol] Bilirubin.total [Mass/volume] in Serum or Plasma0.3-1.0[facility] HospitalCalcium [Mass/volume] in Serum or PlasmaOrdered By: Sandip Bunting on 87-09-7070Zbhpnpy [Mass/Vol]Calcium [Mass/volume] in Serum or PlasmaLow 8.6-10.3FMercy Health – The Jewish HospitalCarbon dioxide, total [Moles/volume] in Serum or PlasmaOrdered By: Sandip Bunting on 93-50-3536SM1 [Moles/Vol]Carbon dioxide, total [Moles/volume] in Serum or Qjljqr64.0-31.0[facility] HospitalChloride [Moles/volume] in Serum or PlasmaOrdered By: Sandip Bunting on 60-25-2797Gxacfszd [Moles/Vol]Chloride [Moles/volume] in Serum or Ngsnjc79-545IpqrlfujcSuburban Community Hospital & Brentwood HospitalComplete Blood Count Auto Diffon 96-82-2349Qfkjxifqk (Bld) [#/Vol]0.0 10*3/uLNormal0.0-0.2The Firsthealth Physician GroupComment on above:Result Comment: PERFORMED BY:[address] [place], [place] [phone] MEDICAL DIRECTORJAJA CATES M.D.Performed By: #### CMP, CBC ####[address] [address] USABasophils/100 WBC (Bld)0.5 %Normal.The Firsthealth Physician GroupComment on above:Performed By: #### CMP, CBC ####[address] [address] USAEosinophils (Bld) [#/Vol]0.4 10*3/uLNormal0.0-0.45The Firsthealth Physician GroupComment on above:Performed By: #### CMP, CBC ####[address] [address] USAEosinophils/100 WBC (Bld)4.6 %Normal.The Firsthealth Physician GroupComment on above:Performed By: #### CMP, CBC ####[address] [address] USAErythrocyte distribution width (RBC) [Ratio]15.4 %High12.0-14.8The Firsthealth Physician GroupComment on above:Performed By: #### CMP, CBC ####[place] [phone] [facility] Hematocrit (Bld) [Volume fraction]28.8 %Low38.8-50.0The Firsthealth Physician GroupComment on above:Performed By: #### CMP, CBC ####[place] [address] USAHemoglobin (Bld) [Mass/Vol]9.7 g/dLLow 13.0-17.0The Firsthealth Physician GroupComment on above:Performed By: #### CMP, CBC ####[place] [address] [place] Lymphocytes (Bld) [#/Vol]0.5 10*3/uLLow1.00-4.8The [facility] Comment on above:Performed By: #### CMP, CBC ####[place] [address] USALymphocytes/100 WBC (Bld)6.1 %Normal. The Firsthealth Physician GroupComment on above:Performed By: #### CMP, CBC ####[place] [address] USAMCH (RBC) [Entitic mass]34.4 prOtvdbh61.5-35.2The Firsthealth Physician GroupComment on above:Performed By: #### CMP, CBC ####[place] [address] USAMCV (RBC) [Entitic vol]102.5 mGWckg36.5-101The Firsthealth Physician GroupComment on above:Performed By: #### CMP, CBC ####[place] [address] USAMean Corpuscular HGB Conc33.6 g/dMRbpyuf75.5-35.6The Firsthealth Physician GroupComment on above:Performed By: #### CMP, CBC ####[place] [address] USAMonocytes (Bld) [#/Vol]0.6 10*3/uLNormal 0.0-0.8The Firsthealth Physician GroupComment on above:Performed By: #### CMP, CBC ####[address] [address] [place] Monocytes/100 WBC (Bld)7.3 %Normal.The Firsthealth Physician GroupComment on above:Performed By: #### CMP, CBC ####[address] [address] USANeutrophils (Bld) [#/Vol]6.2 10*3/uLNormal1.8-7.7The Firsthealth Physician GroupComment on above:Performed By: #### CMP, CBC ####[address] [address] [place] Neutrophils/100 WBC (Bld)81.5 %Normal.The Firsthealth Physician GroupComment on above:Performed By: #### CMP, CBC ####[place] [phone] USANRBC%0.1 /100{WBC}Normal0-0.5The Firsthealth Physician GroupComment on above:Performed By: #### CMP, CBC ####[address] [address] USAPlatelet mean volume (Bld) [Entitic vol]8.2 fLNormal6.6-10.1The Firsthealth Physician GroupComment on above: Performed By: #### CMP, CBC ####[address] [address] USAPlatelets (Bld) [#/Vol]265 10*3/sROjiiux543-642Oxn Firsthealth Physician GroupComment on above:Performed By: #### CMP, CBC ####[address] [address] USARBC (Bld) [#/Vol]2.81 10*6/uLLow3.90-5.60The Firsthealth Physician GroupComment on above:Performed By: #### CMP, CBC ####[address] [address] USAWBC (Bld) [#/Vol]7.6 10*3/uLNormal4.1-10.5The Firsthealth Physician GroupComment on above:Performed By: #### CMP, CBC ####[address] [address] [facility] Comprehensive Metabolic Panelon 33-49-3413Yybznfm [Mass/Vol]2.8 g/dLLow3.5-5.7 The Firsthealth Physician GroupComment on above:Performed By: #### CMP, CBC ####[place] [phone] [facility] Albumin/Globulin [Mass ratio]1.2 {ratio}NormalThe Firsthealth Physician Group Comment on above:Performed By: #### CMP, CBC ####[place] [phone] USAALP [Catalytic activity/Vol]106 U/L Tyut93-458Hlz Firsthealth Physician GroupComment on above:Result Comment: PERFORMED BY:[address] [place], [place] [phone] MEDICAL DIRECTORJAJA CATES M.D. Performed By: #### CMP, CBC ####[address] [address] USAALT [Catalytic activity/Vol]13 U/LNormal7-52The Firsthealth Physician GroupComment on above:Performed By: #### CMP, CBC ####[address] [address] USAAnion gap [Moles/Vol]9.7 mmol/LNormal6.0-15.0The Firsthealth Physician GroupComment on above:Performed By: #### CMP, CBC ####[address] [address] USAAST [Catalytic activity/Vol]22 U/XDrwbmi34-78Kmg Firsthealth Physician GroupComment on above:Performed By: #### CMP, CBC ####[address] [address] [place] Bilirubin [Mass/Vol]0.7 mg/dLNormal0.3-1.0The Firsthealth Physician GroupComment on above:Performed By: #### CMP, CBC ####[address] [address] USACalcium [Mass/Vol]8.2 mg/dLLow8.6-10.3The Firsthealth Physician GroupComment on above:Performed By: #### CMP, CBC ####[address] [address] [place] Chloride [Moles/Vol]98 mmol/IGlsgry84-805Mgc Firsthealth Physician GroupComment on above:Performed By: #### CMP, CBC ####[address] [address] USACO2 [Moles/Vol]27.9 mmol/KHavrzm87.0-31.0The Firsthealth Physician GroupComment on above:Performed By: #### CMP, CBC ####[address] [address] [place] Creatinine [Mass/Vol]1.58 mg/dLHigh0.70-1.30The Firsthealth Physician GroupComment on above:Performed By: #### CMP, CBC ####[address] [address] USAEstimated GFR43.402 mL/MinNoAsheville Specialty Hospital Physician Laird HospitalComment on above:Performed By: #### CMP, CBC ####[address] [address] USAGlobulin (S) [Mass/Vol]2.3 g/dLNoAsheville Specialty Hospital Physician GroupComment on above:Performed By: #### CMP, CBC ####[address] [address] USAGlucose [Mass/Vol]111 mg/rMPxzh58-799Yan [facility] Comment on above:Result Comment: Random Glucose Reference Range is dependent on time and content of last meal. Glucose of more than 200 mg/dL in a nonstressed, ambulatory subject supports the diagnosis of Diabetes Mellitus. ADA recommended reference rangePerformed By: #### CMP, CBC ####[address] [address] USAPotassium [Moles/Vol]3.6 mmol/LNormal 3.5-5.1The Firsthealth Physician GroupComment on above:Performed By: #### CMP, CBC ####[facility] [address] [place] [phone] [place] Protein [Mass/Vol]5.1 g/dLLow6.4-8.9The Firsthealth Physician GroupComment on above:Performed By: #### CMP, CBC ####[facility] [address] [place] [address] USASodium [Moles/Vol]132 mmol/VBol597-316Tmi Firsthealth Physician GroupComment on above:Performed By: #### CMP, CBC ####[facility] [address] [place] [address] USAUrea nitrogen [Mass/Vol]24 mg/dLNormal7-25The Firsthealth Physician GroupComment on above: Performed By: #### CMP, CBC ####[place] [address] [place] [phone] USACreatinine [Mass/volume] in Serum or PlasmaOrdered By: Sandip Bunting on 21-22-7773Wdeexftcvo [Mass/Vol]Creatinine [Mass/volume] in Serum or PlasmaHigh0.70-1.30[facility] HospitalEosinophils Auto (Bld) [#/Vol]Ordered By: Sandip Bunting on 39-82-7461Yyablsmgveo (Bld) [#/Vol] Automated eosinophil count0.0-0.45[facility] Eosinophils/100 WBC Auto (Bld)Ordered By: Sandip Bunting on 03-02-2024 Eosinophils/100 WBC (Bld)Automated eosinophil %.[facility] HospitalErythrocyte distribution width Auto (RBC) [Ratio]Ordered By: Sandip Bunting on 72-25-9206Qvmyrxdsvoj distribution width (RBC) [Ratio]Erythrocyte distribution width [Ratio] by Automated ckzleRmaq01.0-14.8[facility] HospitalGlobulin Calc (S) [Mass/Vol]Ordered By: Sandip Bunting on 52-33-3642Cvgazckt (S) [Mass/Vol]Serum globulin measurement by calculation (mass/volume)[facility] HospitalGlucose [Mass/volume] in Serum or PlasmaOrdered By: Sandip Bunting on 10-40-7680Ktvligx [Mass/Vol]Glucose [Mass/volume] in Serum or MavxulSahg91-234ArezdauedSuburban [facility] Hospital & [facility] Comment on above:ADA recommended reference rangeRandom Glucose Reference Range is dependent on time and content of last meal. Glucose of more than 200 mg/dL in a nonstressed, ambulatory subject supports the diagnosisof Diabetes Mellitus. Hematocrit Auto (Bld) [Volume fraction]Ordered By: Sandip Aguirre on 03-02-2024 Hematocrit (Bld) [Volume fraction]Hematocrit [Volume Fraction] of Blood by Automated thzsiBkc16.8-50.0[facility] HospitalHemoglobin [Mass/volume] in BloodOrdered By: Sandip Bunting on 63-17-1126Kwsnwypnok (Bld) [Mass/Vol]Hemoglobin [Mass/volume] in PyvwdQky78.0-17.0[facility] HospitalLeukocytes [#/volume] corrected for nucleated erythrocytes in Blood by Automated counOrdered By: Sanidp Bunting on 97-31-6789NQR corrected for nucl RBC Auto (Bld) [#/Vol]Leukocytes [#/volume] corrected for nucleated erythrocytes in Blood by Automated coun4.1-10.5FMercy Health – The Jewish Hospital Lymphocytes Auto (Bld) [#/Vol]Ordered By: Sandip Bunting on 03-02-2024 Lymphocytes (Bld) [#/Vol]Lymphocytes [#/volume] in Blood by Automated countLow 1.00-4.8[facility] HospitalLymphocytes/100 WBC Auto (Bld)Ordered By: Sandip Bunting on 34-32-4478Kblwupffiew/100 WBC (Bld)Lymphocytes/100 leukocytes in Blood by Automated count.[facility] HospitalMCH Auto (RBC) [Entitic mass]Ordered By: Sandip Bunsantiago on 03-46-0443UFB (RBC) [Entitic mass]MCH [Entitic mass] by Automated count27.5-35.2FMercy Health – The Jewish HospitalMCHC Auto (RBC) [Mass/Vol]Ordered By: Sandip Aguirre on 25-30-9674TFUL (RBC) [Mass/Vol]MCHC [Mass/volume] by Automated count32.5-35.6FMercy Health – The Jewish HospitalMCV Auto (RBC) [Entitic vol]Ordered By: Sandip Bunting on 60-58-6257RVT (RBC) [Entitic vol]MCV [Entitic volume] by Automated countHigh 83.5-101[facility] HospitalMonocytes Auto (Bld) [#/Vol]Ordered By: Sandip Bunting on 89-44-5548Ahqjkbujq (Bld) [#/Vol]Automated blood monocyte count0.0-0.8[facility] HospitalMonocytes/100 WBC Auto (Bld)Ordered By: Sandip Bunting on 40-18-5561Jsfdubdeb/100 WBC (Bld)Automated monocyte %. [facility] HospitalNeutrophils Auto (Bld) [#/Vol]Ordered By: Sandip Bunting on 75-02-3876Hoazosxdidz (Bld) [#/Vol]Neutrophils [#/volume] in Blood by Automated count1.8-7.7FMercy Health – The Jewish HospitalNeutrophils/100 WBC Auto (Bld)Ordered By: Sandip Bunting on 17-79-5311Kmgdexpxdts/100 WBC (Bld) Automated neutrophil %.[facility] HospitalNo Panel Information Ordered By: Sandip Bunting on 62-61-7090Fqojmifjx GFR (CKD-EPI)43.402 mL/Min [facility] HospitalPharmacy Creatinine Clearance (ChemN/AFMercy Health – The Jewish HospitalNucleated erythrocytes [Presence] in Blood by Automated countOrdered By: Sandip Bunting on 54-68-2994Cfqzuvlxq RBC Auto Ql (Bld) Nucleated erythrocytes [Presence] in Blood by Automated count0-0.5FMercy Health – The Jewish HospitalPlatelet mean volume Auto (Bld) [Entitic vol]Ordered By: Sandip Bunting on 21-82-9854Chhdcheo mean volume (Bld) [Entitic vol]Platelet mean volume [Entitic volume] in Blood by Automated count6.6-10.1FMercy Health – The Jewish HospitalPlatelets Auto (Bld) [#/Vol]Ordered By: Sandip Bunting on 83-61-9759Afwwdjgme (Bld) [#/Vol]Platelets [#/volume] in Blood by Automated ymeej601-963MuchdvyuqSuburban Community Hospital & Brentwood HospitalPotassium [Moles/volume] in Serum or PlasmaOrdered By: Sandip Bunting on 44-56-5103Hrogsmxyi [Moles/Vol]Potassium [Moles/volume] in Serum or Plasma3.5-5.1FMercy Health – The Jewish HospitalProtein [Mass/volume] in Serum or PlasmaOrdered By: Sandip Bunting on 27-16-0072Uzxudus [Mass/Vol]Protein [Mass/volume] in Serum or PlasmaLow6.4-8.9[facility] HospitalRBC Auto (Bld) [#/Vol]Ordered By: Sandip Bunting on 89-94-0683BBZ (Bld) [#/Vol]Erythrocytes [#/volume] in Blood by Automated countLow3.90-5.[address] [facility] Hospitalerum or plasma albumin/globulin mass ratio Ordered By: Sandip Bunting on 05-21-1823Ymhytgi/Globulin [Mass ratio]Serum or plasma albumin/globulin mass ratioSt. Francis Hospitalerum or plasma anion gap determinationOrdered By: Sandip Bunting on 65-42-1501Fpxbc gap [Moles/Vol]Serum or plasma anion gap determination6.0-15.0St. Francis Hospitalodium [Moles/volume] in Serum or PlasmaOrdered By: Sandip Bunting on 62-62-7271Mqxozn [Moles/Vol]Sodium [Moles/volume] in Serum or PlasmaLow 136-145[facility] HospitalUrea nitrogen [Mass/volume] in Serum or PlasmaOrdered By: Sandip Bunting on 57-04-8049Msoj nitrogen [Mass/Vol]Urea nitrogen [Mass/volume] in Serum or Plasma7-25[facility] WBC Auto (Bld) [#/Vol]Ordered By: Sandip Bunting on 83-69-6417DDR (Bld) [#/Vol] Leukocytes [#/volume] in Blood by Automated count4.1-10.5FMercy Health – The Jewish HospitalANION GAPon 77-12-8062Qudna gap [Moles/Vol]12.0 mmol/LNormal 8.0-16.0United Memorial Medical CenterComment on above:Result Comment: ANION GAP = Sodium -(Chloride + CO2)Performed By: #### ANION, CBCND, EGFR1, BMP #### [facility] [address] [place] [address]Bjfyl Gapon 00-95-2453Dhuee gap [Moles/Vol]12.0 mmol/L8.0 - 16.0 meq/LBon [facility] SystemComment on above:ANION GAP = Sodium -(Chloride + CO2) Performed at [facility] [address] [place] [address] BASIC METABOL PANELon 82-47-6770Pykbgct [Mass/Vol]8.5 mg/dLNormal8.5-10.5SDel Sol Medical CenterComment on above:Performed By: #### ANION, CBCND, EGFR1, BMP #### [facility] [address] [address]Wlbeemmn [Moles/Vol]96 mmol/QWbc04-316EjmntUnited Memorial Medical Center Comment on above:Performed By: #### ANION, CBCND, EGFR1, BMP #### [facility] [address] [place] [address]YM5 [Moles/Vol]23 mmol/VCugvkn36-07CbrgyUnited Memorial Medical Center Comment on above:Performed By: #### ANION, CBCND, EGFR1, BMP #### [facility] [address] [address]Yvqjimkmkc [Mass/Vol]1.5 mg/dLHigh0.4-1.2SDel Sol Medical CenterComment on above:Performed By: #### ANION, CBCND, EGFR1, BMP #### [facility] [address] [place] [address]Uhrpjzn [Mass/Vol]100 mg/dMYokyvx15-330OuxulUnited Memorial Medical Center Comment on above:Performed By: #### ANION, CBCND, EGFR1, BMP #### [facility] [address] [place] [address]Ojgmnvdfv [Moles/Vol]3.7 mmol/LNormal3.5-5.2SDel Sol Medical CenterComment on above:Performed By: #### ANION, CBCND, EGFR1, BMP #### [facility] [address] [place], [place] [address]Woxbap [Moles/Vol]131 mmol/LIcc997-210BzpvsUnited Memorial Medical Center Comment on above:Performed By: #### ANION, CBCND, EGFR1, BMP #### [facility] [address] [place], [place] [address]Msnq nitrogen [Mass/Vol]30 mg/dLHigh7-22United Memorial Medical CenterComment on above:Performed By: #### ANION, CBCND, EGFR1, BMP #### [facility] [address] [place], [place] [address]Wjumz metabolic 2000 panelon 68-63-9611Sgqixsd [Mass/Vol]8.5 mg/dL 8.5 - 10.5 mg/dLBon Secours St. Rita'S Hospitaly [facility] Rehabilitation HospitalComment on above:Performed at [facility] [address] [place], [place] [address]Ztvwynee [Moles/Vol]96 mmol/LLow98 - 111 meq/LBon Secours Mercy HealthCO2 [Moles/Vol]23 mmol/L23 - 33 meq/LBon Secours Mercy HealthCreatinine [Mass/Vol]1.5 mg/dLHigh0.4 - 1.2 mg/dLBon Secours Mercy HealthGlucose [Mass/Vol]100 mg/dL70 - 108 mg/dLBon Secours Mercy Health Potassium [Moles/Vol]3.7 mmol/L3.5 - 5.2 meq/LBon Secours Mercy HealthSodium [Moles/Vol]131 mmol/CMjc969 - 145 meq/LBon Secours Mercy HealthUrea nitrogen [Mass/Vol]30 mg/dLHigh7 - 22 mg/dLBon Secours Mercy HealthCBCon 02-27-2024 Erythrocyte distribution width (RBC) [Entitic vol]52.1 iPPyfs57.0 - 45.0 fLBon Secours Mercy HealthErythrocyte distribution width (RBC) [Ratio]13.9 %11.5 - 14.5 %[facility] HealthHematocrit (Bld) [Volume fraction]27.6 %Low42.0 - 52.0 %[facility] HealthHemoglobin (Bld) [Mass/Vol]9.2 g/dLLowBon Secours Mercy HealthInterpretation and review of laboratory resultsAbnormalBon [facility] Geneva Medical CenterH (RBC) [Entitic mass]34.2 yxUalm74.0 - 33.0 pgHenrico Doctors' Hospital—Parham CampusHC (RBC) [Mass/Vol]33.3 g/dLBon [facility] Geneva Medical CenterV (RBC) [Entitic vol]102.6 oCEkda91.0 - 94.0 fLVirginia Hospital CenterPlatelet mean volume (Bld) [Entitic vol]10.2 fL9.4 - 12.4 fLVirginia Hospital CenterComment on above: Performed at [address] [address]Dnfjkvywf (Bld) [#/Vol]282 10*3/uLVirginia Hospital CenterRBC (Bld) [#/Vol]2.69 10*6/uLLow [facility] Hospital CenterWBC (Bld) [#/Vol]13.6 10*3/uLHighBon [facility] Luke's HospitalCBC NO DIFFERENTIALon 41-19-5551Wdoapglncvm distribution width (RBC) [Ratio]13.9 %Hbxlxh16.5-14.5SDel Sol Medical Center Comment on above:Performed By: #### ANION, CBCND, EGFR1, BMP #### [address] [address]Xseumztikv (Bld) [Volume fraction]27.6 %Low42.0-52.0United Memorial Medical CenterComment on above:Performed By: #### ANION, CBCND, EGFR1, BMP #### [address] [address]Xofekkuiwz (Bld) [Mass/Vol]9.2 g/dLLow14.0-18.0United Memorial Medical CenterComment on above:Performed By: #### ANION, CBCND, EGFR1, BMP #### [facility] [address] [place] [address]FXC (RBC) [Entitic mass]34.2 mfBrah38.0-33.0United Memorial Medical CenterComment on above:Performed By: #### ANION, CBCND, EGFR1, BMP #### [facility] [address] [place] [address]TFGG (RBC) [Mass/Vol]33.3 g/fGRlfime53.2-35.5SDel Sol Medical CenterComment on above:Performed By: #### ANION, CBCND, EGFR1, BMP #### [facility] [address] [place] [address]HSC (RBC) [Entitic vol]102.6 zVSsby01.0-94.0United Memorial Medical CenterComment on above:Performed By: #### ANION, CBCND, EGFR1, BMP #### [facility] [address] [place] [address]BLMZFMNW173 thou/pi1Yhljrp279-993WffblUnited Memorial Medical Center Comment on above:Performed By: #### ANION, CBCND, EGFR1, BMP #### [facility] [address] [place] [address]Widfkcjz mean volume (Bld) [Entitic vol]10.2 fLNormal9.4-12.4SDel Sol Medical CenterComment on above:Performed By: #### ANION, CBCND, EGFR1, BMP #### [facility] [address] [address]KMB6.69 mill/ec9Omo9.70-6.10United Memorial Medical CenterComment on above:Performed By: #### ANION, CBCND, EGFR1, BMP #### [facility] [address] [place] [address]YTD-ZM44.1 nEJovs42.0-45.0United Memorial Medical CenterComment on above:Performed By: #### ANION, CBCND, EGFR1, BMP #### [facility] [address] [place] [address]SMU26.6 thou/bs7Vxed6.8-10.8United Memorial Medical CenterComment on above:Performed By: #### ANION, CBCND, EGFR1, BMP #### [facility] [address] [place] [address]UJY Rhythm Stripon 43-00-6061TEGVOLDVvjShenandoah Memorial HospitalBon [facility] Health SystemGFR, ESTIMATEDon 84-24-8328ACY/1.73 sq M.predicted MDRD (S/P/Bld) [Vol rate/Area]46 mL/min/{1.73_m2}Abnormal>60Bon [facility] Health SystemComment on above:Pediatric calculator link https://www.kidney.org/professionals/kdoqi/gfr_calculatorped Effective Dec [...] that affects renal tubular secretion. Performed at [facility] [address] [address] Result Comment: Pediatric calculator link https://www.kidney.org/professionals/kdoqi/gfr_calculatorped Effective [...] By: #### ANION, CBCND, EGFR1, BMP #### [employer] [address] [place] [address]Jy Panel Informationon 17-73-5957Fejbpkvayyivjo and review of laboratory resultsAbnormalSentara CarePlex HospitalANION GAPon 01-29-4918Riivq gap [Moles/Vol]13.0 mmol/LNormal8.0-16.0United Memorial Medical CenterComment on above:Result Comment: ANION GAP = Sodium -(Chloride + CO2)Performed By: #### NTBNP, TSH3, HH #### [employer] [address] [place], [place] [address]Ostmt Gapon 58-46-6054Qdheg gap [Moles/Vol]13.0 mmol/L8.0 - 16.0 meq/LBon [facility] SystemComment on above:ANION GAP = Sodium -(Chloride + CO2) Performed at [facility] [address] [place] [address] BASIC METABOL PANELon 04-17-8907Ptvxpkk [Mass/Vol]8.9 mg/dLNormal8.5-10.5SDel Sol Medical CenterComment on above:Performed By: #### REINA CORRALES, #### [facility] [address] [place] [address]Wbmphczg [Moles/Vol]97 mmol/HLwr18-760GzjodUnited Memorial Medical Center Comment on above:Performed By: #### REINA CORRALES, #### [facility] [address] [place] [address]PV1 [Moles/Vol]24 mmol/JIdiokr15-89WbicwUnited Memorial Medical Center Comment on above:Performed By: #### REINA CORRALES, #### [facility] [address] [place] [address] 09800Fpxcizhhjc [Mass/Vol]1.2 mg/dLNormal0.4-1.2SDel Sol Medical CenterComment on above:Performed By: #### REINA CORRALES, #### [facility] [address] [place] [address] 83255Tmsdflr [Mass/Vol]109 mg/lNIfby98-746TodhmUnited Memorial Medical Center Comment on above:Performed By: #### REINA CORRALES, #### [facility] [address] [place] [address] 90107Dcmsqvrih [Moles/Vol]3.5 mmol/LNormal3.5-5.2SDel Sol Medical CenterComment on above:Performed By: #### REINA CORRALES, HH #### [facility] [address] [place] [address] 77461Ztvhyz [Moles/Vol]134 mmol/OIvc497-517GvyspUnited Memorial Medical Center Comment on above:Performed By: #### REINA CORRALES, HH #### [facility] [address] [place], [place] [address]Aawt nitrogen [Mass/Vol]21 mg/dLNormal7-22SaDell Children's Medical CenterComment on above:Performed By: #### NTBNP, TSH3, #### [facility] [address] [place], [place] [address]Kjkvq metabolic 2000 panelon 84-36-8545Cibymrn [Mass/Vol]8.9 mg/dL 8.5 - 10.5 mg/dLBon [facility] SystemComment on above:Performed at [facility] [address] [place], [place] [address]Eudijkuv [Moles/Vol]97 mmol/LLow98 - 111 meq/LBon SecPrairieville Family Hospital HealthCO2 [Moles/Vol]24 mmol/L23 - 33 meq/LBon [facility] SystemCreatinine [Mass/Vol]1.2 mg/dL0.4 - 1.2 mg/dLBon [facility] SystemGlucose [Mass/Vol]109 mg/uGOfbs14 - 108 mg/dLBon [facility] SystemInterpretation and review of laboratory resultsAbnormalBon [facility] SystemPotassium [Moles/Vol]3.5 mmol/L3.5 - 5.2 meq/LBon [facility] Sodium [Moles/Vol]134 mmol/PWtu114 - 145 meq/LBon [facility] SystemUrea nitrogen [Mass/Vol]21 mg/dL7 - 22 mg/dLBon [facility] SystemGFR, ESTIMATEDon 78-43-6313GZH/1.73 sq M.predicted MDRD (S/P/Bld) [Vol rate/Area]60 mL/min/{1.73_m2}Normal>60Bon [facility] SystemComment on above:Pediatric calculator link https://www.kidney.org/professionals/kdoqi/gfr_calculatorped Effective Dec [...] that affects renal tubular [place] [address] Result Comment: Pediatric calculator link https://www.kidney.org/professionals/kdoqi/gfr_calculatorped Effective [...] tubular secretion.Performed By: #### REINA CORRALES, #### [address] [address]UQY,HCTon 04-54-7369Kqulxqtgzn (Bld) [Volume fraction]27.7 %Low 42.0-52.0Virginia Hospital CenterComment on above:Performed at [address] [address]Leerpafqc By: #### REINA CORRALES, #### [address] [address]Syjwylqdjx (Bld) [Mass/Vol]9.3 g/dLLow14.0-18.0[facility] on above:Performed By: #### REINA CORRALES, #### [address] [address]Ttvywxyjyy and Hematocrit panel (Bld)on 94-53-4928Aqfbhlmlzmaogl and review of laboratory resultsAbnormalBon [facility] Luke's HospitalNo Panel Informationon 48-17-5417Jjj [facility] Health SystemANION GAPon 46-15-7978Mppey gap [Moles/Vol]11.0 mmol/LNormal8.0-16.0United Memorial Medical CenterComment on above:Result Comment: ANION GAP = Sodium -(Chloride + CO2) Performed By: #### POCGL #### [address] [address]Ixnya Gapon 19-69-0985Vizmi gap [Moles/Vol]11.0 mmol/L8.0 - 16.0 meq/LBon [facility] SystemComment on above:ANION GAP = Sodium -(Chloride + CO2) Performed at [facility] [address] [place] [address] BASIC METABOL PANELon 77-85-1841Jfaajvm [Mass/Vol]8.5 mg/dLNormal8.5-10.5SDel Sol Medical CenterComment on above:Performed By: #### POCGL #### [address] [address]Fpiolfbs [Moles/Vol]97 mmol/MNzj31-341HlgrhUnited Memorial Medical Center Comment on above:Performed By: #### POCGL #### [address] [address]JC8 [Moles/Vol]26 mmol/OVkxhwe84-64PkcalUnited Memorial Medical Center Comment on above:Performed By: #### POCGL #### [address] [address]Mrsbnfxqga [Mass/Vol]1.1 mg/dLNormal0.4-1.2SDel Sol Medical CenterComment on above:Performed By: #### POCGL #### [address] [address]Kgssdmh [Mass/Vol]100 mg/cNGhpeqy03-558KbdhaUnited Memorial Medical Center Comment on above:Performed By: #### POCGL #### [address] [address]Xivevhete [Moles/Vol]2.9 mmol/LLow3.5-5.2SDel Sol Medical CenterComment on above:Performed By: #### POCGL #### [facility] [address] [place] [address] 68824Nkvimq [Moles/Vol]134 mmol/GMyj905-984KeojfUnited Memorial Medical Center Comment on above:Performed By: #### POCGL #### [facility] [address] [place] [address] 98483Tutp nitrogen [Mass/Vol]17 mg/dLNormal7-22United Memorial Medical CenterComment on above:Performed By: #### POCGL #### [address] [address]LXKSO CULTUREon 61-10-4284Iczzcusy identified Cx Nom (Bld) MICROBIOLOGY REPORT [facility], [address] [place] [address], [facility] PATIENT: TAVO WALLIS LOCATION: [facility] : 1940 AGE: 83 SEX: M ADM: 02/21/24 Att. Physician: RANDI BURRIS Order Id: [id number] Req. Physician: RANDA KING Source: hscua-Qucqz-zccgikoicw <5.5oz./set volume Site: Peripheral Vein Collected: 02/25/24 07:19 Current Antibiotics: not stated Antibiotics comment: C O M M E N T S Source:->Blood STATUS OF ORDERED AND REPORTED TESTS BLOOD CULTURE FINAL 03/01/24 BLOOD CULTURE FINAL 03/01/24 08:06 02/26/24 No growth 24 hours. 02/27/24 No growth 48 hours. 03/01/24 No growth at 5 daysNormalSDel Sol Medical CenterBacteria identified Cx Nom (Bld)MICROBIOLOGY REPORT [facility], [address] [place] [address], [facility] PATIENT: TAVO WALLIS LOCATION: [facility] : 1940 AGE: 83 SEX: M ADM: 02/21/24 Att. Physician: RANDI BURRIS Order Id: [id number] Req. Physician: ORAINA, OLUREMI Source: itcly-Uvfss-rhtctdygjy <5.5oz./set volume Site: Peripheral Vein Collected: 02/25/24 07:19 Current Antibiotics: not stated Antibiotics comment: STATUS OF ORDERED AND REPORTED TESTS BLOOD CULTURE FINAL 03/01/24 BLOOD CULTURE FINAL 03/01/24 08:06 02/26/24 No growth 24 hours. 02/27/24 No growth 48 hours. 03/01/24 No growth at 5 daysNoLas Palmas Medical CenterBakentucky river medical center metabolic 2000 panelon 36-73-7226Ewaifiq [Mass/Vol]8.5 mg/dL8.5 - 10.5 mg/dLBon SecThe Christ HospitalComment on above:Performed at [facility] [address] [place] [address] 19325Kvpthhvz [Moles/Vol]97 mmol/LLow98 - 111 meq/LBon SecForks Community Hospitaly HealthCO2 [Moles/Vol]26 mmol/L23 - 33 meq/LBon SecPrairieville Family Hospital HealthCreatinine [Mass/Vol]1.1 mg/dL0.4 - 1.2 mg/dLBon [facility]ours [facility] HealthGlucose [Mass/Vol]100 mg/dL70 - 108 mg/dLBon [facility] HealthInterpretation and review of laboratory resultsAbnormalBon Secours St. Rita'S Hospitaly HealthPotassium [Moles/Vol]2.9 mmol/LLow3.5 - 5.2 meq/LBon SecPrairieville Family Hospital HealthSodium [Moles/Vol]134 mmol/LLow 135 - 145 meq/LBon SecPrairieville Family Hospital HealthUrea nitrogen [Mass/Vol]17 mg/dL7 - 22 mg/dLBon SecPrairieville Family Hospital HealthCBCon 31-56-9434Gepvieyfbwo distribution width (RBC) [Entitic vol]57.1 uNSfdf60.0 - 45.0 fLBon [facility] Interpretation and review of laboratory resultsAbnormalBon SecPrairieville Family Hospital Health Platelets (Bld) [#/Vol]180 10*3/uLBon Secours St. Rita'S Hospitaly HealthRBC (Bld) [#/Vol]2.49 10*6/uLLowBon Secours St. Rita'S Hospitaly HealthWBC (Bld) [#/Vol]11.7 10*3/uLHighBon [facility] HealthBon [facility]ours [facility] HealthCBC NO DIFFERENTIALon 77-59-6513Nzkpuwcmbnz distribution width (RBC) [Ratio]14.3 %Yzvhom00.5-14.5Bon [facility] Comment on above:Performed By: #### REINA CORRALES, #### [facility] [address] [place] [address] 88431Pusmlqubsh (Bld) [Volume fraction]27.1 %Low42.0-52.0[facility] on above:Performed By: #### REINA CORRALES, HH #### [facility] [address] [place] [address] 37720Ujoadzzkgb (Bld) [Mass/Vol]8.8 g/dLLow14.0-18.0Bon [facility] on above:Performed By: #### REINA CORRALES, HH #### [facility] [address] [place] [address] 76593PFX (RBC) [Entitic mass]35.3 xkReto73.0-33.0Bon [facility] SystemComment on above:Performed By: #### REINA CORRALES, #### [facility] [address] [place] [address] 12817XGMA (RBC) [Mass/Vol]32.5 g/aUMiztow48.2-35.5Bon [facility] on above:Performed By: #### REINA CORRALES, #### [facility] [address] [place] [address] 17976GMP (RBC) [Entitic vol]108.8 lVEqbz54.0-94.0Bon [facility] on above:Performed By: #### REINA CORRALES, #### [facility] [address] [place] [address] 90305EMSISBCT734 thou/di0Ceyqrx622-097BhuneUnited Memorial Medical Center Comment on above:Performed By: #### REINA CORRALES, #### [facility] [address] [place] [address] 95628Iuhiwoxr mean volume (Bld) [Entitic vol]10.0 fLNormal9.4-12.4Bon [facility] on above:Performed at [facility] [address] [address]Iezmxkxuo By: #### REINA CORRALES, JE #### [facility] [employer] [address] [place] [address] 68022KJV2.49 mill/uh5Dbu0.70-6.10United Memorial Medical CenterComment on above:Performed By: #### REINA CORRALES, JE #### [facility] [address] [place] [address] 29739OIU-LJ75.1 eRBzzf44.0-45.0United Memorial Medical CenterComkresge eye institute on above:Performed By: #### REINA CORRALES, JE #### [facility] [address] [address]QRS10.7 thou/yi5Tpki7.8-10.8United Memorial Medical CenterComment on above:Performed By: #### REINA CORRALES, JE #### [facility] [employer] [address] [address]NQG, ESTIMATEDon 91-10-8145EHY/1.73 sq M.predicted MDRD (S/P/Bld) [Vol rate/Area]67 mL/min/{1.73_m2}Normal>60Bon [facility] on above:Pediatric calculator link https://www.kidney.org/professionals/kdoqi/gfr_calculatorped [...] that affects renal tubular secretion. Performed at [facility] [address] [address] Result Comment: Pediatric calculator link https://www.kidney.org/professionals/kdoqi/gfr_calculatorped Effective [...] renal tubular secretion.Performed By: #### POCGL #### [address] [address]COL,HCTon 18-56-5016Whzcdpqgre (Bld) [Volume fraction]25.2 %Low 42.0-52.0[facility] on above:Performed at [address] [address]Xlqpwuutl By: #### POCGL #### [address] [address]Wlkzbbtzpu (Bld) [Mass/Vol]8.2 g/dLLow14.0-18.0[facility] on above:Performed By: #### POCGL #### [address] [address]Qzmlatcytu and Hematocrit panel (Bld)on 00-16-3099Mgmxmissbpeeiq and review of laboratory resultsAbnormalBon [facility]. Luke's HospitalInfluenza virus A and B RNA and SARS-CoV-2 (COVID-19) N gene panel SMITHA+probe (Resp)on 39-62-6595RWGWH RNA SMITHA+probe Ql (Resp)Not detectedNOT DETECTEDVirginia Hospital CenterFLUBV RNA SMITHA+probe Ql (Resp)Not detectedNOT DETECTEDFort [facility]voir Community Hospital on above:Performed at [address] [address]EKOC-TsW-9 (COVID-19) RNA SMITHA+probe Ql (Resp)Not detectedNOT DETECTEDFort Belvoir Community Hospital on above:Not Detected results do [...] in nasopharyngeal and nasal swab specimens. Bon [facility] Health SystemLACTIC ACID, SEPSISon 98-36-6409IDCEFF ACID, SEPSIS0.9 mmol/LNormal0.5-1.9United Memorial Medical CenterComment on above:Performed By: #### NTBNP, TSH3, #### [address] [address]IKOOSL ACID, SEPSIS1.0 mmol/LNormal0.5-1.9United Memorial Medical CenterComment on above:Performed By: #### LACDS #### [address] [address]Mkzorur, Sepsison 12-78-0139Djnzgk Acid, Sepsis0.9 mmol/L0.5 - 1.9 mmol/LBon [facility] SystemComment on above:Performed at [facility] [address] [place] [address]28[address]Arf [facility] Health SystemLactic Acid, Sepsis 1.0 mmol/L0.5 - 1.9 mmol/LBon [facility] SystemComment on above:Performed at [facility] [place] [id number] Hospital CenterNo Panel Informationon 43-28-2142Nlg [facility] Health SystemSARS-COV-2 & INFLUENZA A/Bon 02-93-8598UQBGMXQOP A, RT-PCRNot detectedNormalNOT DETECTEDUnited Memorial Medical CenterComment on above:Performed By: #### CVFLU #### [address] [address]KBLQTAYXD B, RT-PCRNot detectedNormalNOT DETECTEDUnited Memorial Medical CenterComment on above:Performed By: #### CVFLU #### [address] [address]YHZT-CqI-5 (COVID-19) RNA SMITHA+probe Ql (Unsp spec)Not detected NormalNOT DETECTEDUnited Memorial Medical CenterComment on above:Result Comment: Not Detected [...] nasal swab specimens.Performed By: #### CVFLU #### [address] [address]OKBXK GAPon 15-85-5087Kxsma gap [Moles/Vol]11.0 mmol/LNormal 8.0-16.0United Memorial Medical CenterComment on above:Result Comment: ANION GAP = Sodium -(Chloride + CO2)Performed By: #### POCGL #### [address] [address]Aerlu Gapon 87-14-6096Umqpw gap [Moles/Vol]11.0 mmol/L8.0 - 16.0 meq/LBon [facility] SystemComment on above:ANION GAP = Sodium -(Chloride + CO2) Performed at [facility] [address] [address] BASIC METABOL PANELon 35-09-1453Bsmnjob [Mass/Vol]8.6 mg/dLNormal8.5-10.5SDel Sol Medical CenterComment on above:Performed By: #### POCGL #### [address] [address]Lzdvpttv [Moles/Vol]104 mmol/EMwwzza53-778DfitxUnited Memorial Medical CenterComment on above:Performed By: #### POCGL #### [address] [address]RY3 [Moles/Vol]23 mmol/YWksfwc32-70KbzvxUnited Memorial Medical Center Comment on above:Performed By: #### POCGL #### [address] [address]Qjxyuwgkle [Mass/Vol]1.2 mg/dLNormal0.4-1.2SDel Sol Medical CenterComment on above:Performed By: #### POCGL #### [facility] [address] [place] [address]Nfdqxxq [Mass/Vol]126 mg/iHVtlh60-204YyqwaUnited Memorial Medical Center Comment on above:Performed By: #### POCGL #### [facility] [address] [place] [address]76[address]Aqtanckwu [Moles/Vol]3.9 mmol/LNormal3.5-5.2SDel Sol Medical CenterComment on above:Performed By: #### POCGL #### [facility] [address] [place] [address] 065[address]Aqccyh [Moles/Vol]138 mmol/UOfozmj091-167IxaqlUnited Memorial Medical CenterComment on above:Performed By: #### POCGL #### [facility] [address] [place] [address] 66693Rrnf nitrogen [Mass/Vol]20 mg/dLNormal7-22United Memorial Medical CenterComment on above:Performed By: #### POCGL #### [address] [address]Gnvmv metabolic 2000 panelon 96-57-0221Udfyrbn [Mass/Vol]8.6 mg/dL 8.5 - 10.5 mg/dLBon SecForks Community Hospitaly [facility] Rehabilitation HospitalComment on above:Performed at [facility] [address] [place] [address]66[address]Jnilaiup [Moles/Vol]104 mmol/L98 - 111 meq/LBon Secours Mercy HealthCO2 [Moles/Vol]23 mmol/L23 - 33 meq/LBon [facility]ours [facility] HealthCreatinine [Mass/Vol]1.2 mg/dL0.4 - 1.2 mg/dLBon Secours Mercy HealthGlucose [Mass/Vol]126 mg/zXGzsv31 - 108 mg/dLBon Secours Mercy HealthInterpretation and review of laboratory resultsAbnormalBon Secours Mercy HealthPotassium [Moles/Vol]3.9 mmol/L3.5 - 5.2 meq/LBon [facility] Sodium [Moles/Vol]138 mmol/L135 - 145 meq/LBon Secours Mercy HealthUrea nitrogen [Mass/Vol]20 mg/dL7 - 22 mg/dLBon Secours Mercy HealthCT HEAD WO CONTRASTon 93-00-3492QF HEAD WO CONTRASTCT head without contrast COMPARISON: [...] Signed by: Dudley Mattson MD 02/24/24 Final resultNormalSDel Sol Medical CenterCT Head WO contraston . No acute intracranial abnormality. 2. Global cerebral volume loss and chronic microvascular ischemic changes. This document has been electronically signed by: Dudley Mattson MD on 02/24/2024 07:43 PM [address] CTs at this facility use dose modulation techniques and iterative reconstructions, and/or weight-based dosing when appropriate to reduce radiation to a low as reasonably achievable.[facility] CONSOLIDATEDCT head without contrast COMPARISON: None FINDINGS: Global cerebral volume loss and chronic microvascular ischemic changes. No acute intracranial hemorrhage, extra-axial fluid collection, mass effect, or midline shift. Ventricular system and basilar cisterns are patent. Hensley-white matter differentiation is maintained. No gross orbital abnormality. No suspicious or acute bone lesion. Mastoid air cells and paranasal sinuses are predominantly clear. [facility] Dudley Leger MD - 02/24/2024 CT [...] radiation to a low as reasonably achievable. [facility] Hospital CenterRadiology Study observation (narrative)[facility] HospitalCenterstone Technologies [facility] HospitalCT Head WO contrastOrdered By: Dudley Mattson on 64-50-2586Cqd [facility] Health SystemGFR, ESTIMATEDon 00-12-4655DHJ/1.73 sq M.predicted MDRD (S/P/Bld) [Vol rate/Area]60 mL/min/{1.73_m2}Normal>60Bon [facility] on above:Pediatric calculator link https://www.kidney.org/professionals/kdoqi/gfr_calculatorped [...] that affects renal tubular secretion. Performed at [facility] [address] [place] [address] Result Comment: Pediatric calculator link https://www.kidney.org/professionals/kdoqi/gfr_calculatorped Effective [...] By: #### ANION, CBCND, EGFR1, BMP #### [employer] [address] [place] [address] 75[address]DTGSJWW POCon 65-92-5879Zopybky [Mass/Vol]126 mg/xYPdfh52-967Uej [facility] on above:Performed at [facility] [address] [place] [address] 56[address]Wwfuypgzs By: #### POCGL #### [address] [address]Pkeqhyf Auto test strip (Bld) [Mass/Vol]on 02-24-2024 Interpretation and review of laboratory resultsAbnormInova Fair [facility]aks Hospital Bon [facility] Health SystemHGB,HCTon 80-15-1880Xwbqvlajjg (Bld) [Volume fraction] 26.3 %Low42.0-52.0Bon [facility] on above:Performed at [facility] [address] [place] [address] 72026Xyvnszbqi By: #### POCGL #### [address] [address]Zrlgjnfwnm (Bld) [Mass/Vol]8.3 g/dLLow14.0-18.0Bon [facility] on above:Performed By: #### POCGL #### [address] [address]Ldusutuloh and Hematocrit panel (Bld)on 79-18-1145Oolsfhyuiqrjtw and review of laboratory resultsAbnoSt. Mary's Healthcare CenterNo Panel Informationon 52-65-8136Mst [facility] Health SystemPortable XR Chest AP single viewon . Hzfcdloh-bp-ceydlh cardiomegaly with pulmonary edema and pleural effusions. Findings are consistent with CHF. This document has been electronically signed by: Dudley Mattson MD on 02/24/2024 09:42 [facility] CON[facility]1 view chest x-ray Comparison: None Findings: Veaeczmy-sm-vhmmgo cardiomegaly. Small left and trace right pleural effusions. Cephalization pulmonary vasculature with diffusely increased interstitial markings and diffuse hazy alveolar opacity. No pneumothorax. [facility] Dudley Leger MD - 02/24/2024 1 view chest x-ray Comparison: None Findings: Ypbaueli-oi-glupyz cardiomegaly. Small left and trace right pleural effusions. Cephalization pulmonary vasculature with diffusely increased interstitial markings and diffuse hazy alveolar opacity. No pneumothorax. IMPRESSION: 1. Dbosyxhs-cd-bauxfm cardiomegaly with pulmonary edema and pleural effusions. Findings are consistent with CHF. This document has been electronically signed by: Dudley Mattson MD on 02/24/2024 09:42 PM [facility] HospitalRadiology Study observation (narrative)[facility] Hospital CenterXR CHEST PORTABLEon 00-67-2448WV CHEST PORTABLE1 view chest x-ray Comparison: None Findings: Igcinfur-hc-mrjmft cardiomegaly. Small left and trace right pleural effusions. Cephalization pulmonary vasculature with diffusely increased interstitial markings and diffuse hazy alveolar opacity. No pneumothorax. IMPRESSION: 1. Sbzqukbf-ts-ibidfs cardiomegaly with pulmonary edema and pleural effusions. Findings are consistent with CHF. This document has been electronically signed by: Dudley Mattson MD on 02/24/2024 09:42 PM Interpreted by: Dudley Mattson MD Signed by: Dudley Mattson MD 02/24/24 Final resultNormalSDel Sol Medical CenterANION GAPon 11-61-5088Baaca gap [Moles/Vol]10.0 mmol/LNormal8.0-16.0United Memorial Medical CenterComment on above: Result Comment: ANION GAP = Sodium -(Chloride + CO2)Performed By: #### GREG CORRALES3, #### [facility] [address] [place], [place] [address]Cmbei Gapon 60-82-0996Itmia gap [Moles/Vol]10.0 mmol/L8.0 - 16.0 meq/LBon [facility] SystemComment on above:ANION GAP = Sodium -(Chloride + CO2) Performed at [facility] [address] [place] [address] BASIC METABOL PANELon 43-44-2182Khspmrj [Mass/Vol]8.4 mg/dLLow8.5-10.5SDel Sol Medical CenterComment on above:Performed By: #### GREG CORRALES3, #### [facility] [address] [place], [place] [address]Ipsbtfdz [Moles/Vol]105 mmol/CHnkcpf63-351MvcwbUnited Memorial Medical CenterComment on above:Performed By: #### REINA CORRALES, HH #### [facility] [address] [place] [address] 66000KT7 [Moles/Vol]22 mmol/WEzh96-97RcsjdUnited Memorial Medical CenterComment on above:Performed By: #### GREG CORRALES3, HH #### [facility] [address] [place] [address] 68[address]Woxpmsubyq [Mass/Vol]1.3 mg/dLHigh0.4-1.2SDel Sol Medical CenterComment on above:Performed By: #### REINA CORRALES, HH #### [facility] [address] [place] [address] 426[address]Vosaqyt [Mass/Vol]148 mg/pMLgjw42-050XmjizUnited Memorial Medical Center Comment on above:Performed By: #### REINA CORRALES, HH #### [facility] [address] [place] [address] 53869Rpthffyay [Moles/Vol]4.3 mmol/LNormal3.5-5.2SDel Sol Medical CenterComment on above:Performed By: #### REINA CORRALES, HH #### [facility] [address] [place] [address] 647[address]Irxuwu [Moles/Vol]137 mmol/MGjmpwg090-434AwldwUnited Memorial Medical CenterComment on above:Performed By: #### REINA CORRALES, #### [facility] [address] [place] [address] 512[address]Yjkx nitrogen [Mass/Vol]24 mg/dLHigh7-22United Memorial Medical CenterComment on above:Performed By: #### REINA CORRALES, HH #### [facility] [address] [place] [address] 75[address]Jtomf metabolic 2000 panelon 21-76-2542Ewzjimr [Mass/Vol]8.4 mg/dL Low8.5 - 10.5 mg/dLBon [facility] SystemComment on above:Performed at [facility] [address] [place] [address]Bjdbsolc [Moles/Vol]105 mmol/L 98 - 111 meq/LBon [facility] SystemCO2 [Moles/Vol]22 mmol/LLow23 - 33 meq/L Bon [employer] SolutionsCreatinine [Mass/Vol]1.3 mg/dLHigh0.4 - 1.2 mg/dLBon [employer] SolutionsGlucose [Mass/Vol]148 mg/xSTdpe43 - 108 mg/dLBon [employer] SolutionsPotassium [Moles/Vol]4.3 mmol/L3.5 - 5.2 meq/LBon [employer] SolutionsSodium [Moles/Vol]137 mmol/L135 - 145 meq/LBon [employer] SolutionsUrea nitrogen [Mass/Vol]24 mg/dLHigh7 - 22 mg/dLBon i[employer] Learning SolutionsCardiac echo study ProcedureOrdered By: Bambi Huntley on 50-62-1609Hbjotkiat Aorta3.0 cm [employer] Phone: Ascending Aorta Index1.53 cm/m2[facility] [employer] Phone: AV Cusp Mmode1.7 cmSummit Healthcare Regional Medical Center [employer] Phone: AV Peak Vpgloszz28tjCjCdw [employer] Phone: AV Peak Velocity1.6 m/sBon [employer] Phone: AV Velocity Ratio0.44[employer] Phone: Body surface area Derived from formula2 m2[facility] [employer] Phone: EF BP36 %Ivjmisxl50 - 100 %[employer] Work Phone: Est. RA Knpjkiua0rdXxFhk [employer] Phone: Fractional Shortening 2D18 %28 - 44 %[employer] Phone: Interpretation and review of laboratory results AbnormalDucatt Phone: IVSd1.0 cm0.6 - 1.0 cmDucatt Phone: LA Area 2C22.6 cm2[facility] Work Phone: la Area 4C22.8 cm2[facility] Work Phone: LA Diameter4.4 cmBon [facility] Work Phone: LA Major Axis6.5 cmBon [facility] Work Phone: la Minor Axis6.0 cmBon [facility] Work Phone: LA Size Index2.24 cm/m2[facility] Work Phone: LA Volume BP68 lOByiverby44 - 58 mLBon [facility] Work Phone: LA Volume Index BP35 ml/m4Uhjjfwmt74 - 34 ml/m2[facility] Work Phone: LA Volume Index MOD A2C34 ml/m216 - 34 ml/m2[facility] Work Phone: LA Volume Index MOD A4C33 ml/m216 - 34 ml/m2[facility] Work Phone: LA Volume MOD A2C67 hMPsaetdhc28 - 58 mLBon [employer] Work Phone: LA Volume MOD A4C65 gZKbftnzem47 - 58 mLBon [facility] Work Phone: LV EDV [phone] mLPinewood Social SecK[facility] Work Phone: LV EDV P3H196 mLBon [facility] Work Phone: LV EDV Index A2C69 mL/m2[facility] Work Phone: LV EDV Index A4C66 mL/m2[facility] Work Phone: LV Ejection Fraction A2C38 %[employer] Work Phone: LV Ejection Fraction A4C37 %Bon [employer] Work Phone: LV ESV A2C83 mLBon [facility] Work Phone: [phone] ESV A4C82 mLBon [facility] Work Phone: [phone] ESV Index A2C42 mL/m2[facility] Work Phone: [phone] ESV Index A4C42 mL/m2[facility] Work Phone: [phone] IVRT63.0 msBon [facility] Work Phone: [phone] Mass 2D194.4 g88 - 224 gBon [facility] Work Phone: [phone] Mass 2D Index99.2 g/m249 - 115 g/m2[facility] Work Phone: [phone] RWT Ratio0.44Bon [employer] Work Phone: [phone] cm4.2 - 5.9 cmBon [facility] Work Phone: [phone] Index2.55 cm/m2[facility] Work Phone: LVIDs4.1 cmBon [employer] Work Phone: LVIDs Index2.09 cm/m2[facility] Work Phone: [phone] Peak Rpgdzofq6ykOxJwa [facility] Work Phone: [phone] Peak Velocity0.7 m/sBon [facility] Work Phone: [phone] cmAbnormal0.6 - 1.0 cmBon [facility] Work Phone: MR Peak Xbnrtuep03gkMcBlv [employer] Work Phone: MR Peak Velocity4.5 m/sBon [facility] Work Phone: [phone] E Velocity1.63 m/sBon [facility] Work Phone: PR Max Velocity1.0 m/sBon [employer] Phone: Pulmonary Artery NKA6erAyByi [employer] Phone: [phone] Max Velocity0.8 m/sBon [employer] Phone: [phone] Peak Unadteeh4dvBqDpg [employer] Phone: [phone] cmBon [employer] Phone: [phone] [employer] Phone: [phone] cmAbnormal1.7 cmBon [employer] Phone: TR Max Velocity3.02 m/sBon [employer] Phone: TR Peak Yxttcgdj43alPoHrw [employer] Phone: TV E Wave Velocity0.5 m/sBon [employer] Phone: [phone] [employer] Phone: Cardiac echo study Procedureon 11-92-5731Yatl Ventricle: Moderately reduced left ventricular systolic function [...] echo report scanned into cart under care everywhere.[facility] Radiology Study observation (narrative)Bon SecAusthink SoftwareEKG Rhythm Strip on 36-00-6616GK 93PACEARTBon Secours [facility] HealthHR 100PACEARTBon Secours [facility] HealthHR 80PACEARTBon Secours Funideliay HealthGFR, ESTIMATEDon 35-42-8700NWR/1.73 sq M.predicted MDRD (S/P/Bld) [Vol rate/Area]55 mL/min/{1.73_m2}Abnormal>60Bon SecAusth[employer] SoftwareComment on above:Pediatric calculator link https://www.kidney.org/professionals/kdoqi/gfr_calculatorped Effective Dec [...] that affects renal tubular secretion. Performed at [facility] [address] [place] [address] Result Comment: Pediatric calculator link https://www.kidney.org/professionals/kdoqi/gfr_calculatorped Effective [...] secretion.Performed By: #### REINA CORRALES, JE #### [address] [address]HXU,HCTon 74-40-9213Esmizosnpa (Bld) [Volume fraction]25.3 %Low 42.0-52.0[facility] on above:Performed at [address] [address]Wvseopivs By: #### REINA CORRALES HH #### [address] [address]Dpmbuhozcz (Bld) [Mass/Vol]8.0 g/dLLow14.0-18.0Bon [facility] on above:Performed By: #### REINA CORRALES, #### [address] [address]Flzydiejnh and Hematocrit panel (Bld)on 67-06-6358Zzoylljmnmqzzx and review of laboratory resultsAbnormCarilion Roanoke Community HospitalNo Panel Informationon 26-40-7750Vowrclmaslyfri and review of laboratory resultsAbnormalSentara CarePlex HospitalANION GAPon 13-27-2346Pcwox gap [Moles/Vol]11.0 mmol/LNormal8.0-16.0United Memorial Medical CenterComment on above:Result Comment: ANION GAP = Sodium -(Chloride + CO2)Performed By: #### REINA CORRALES, JE #### [address] [address]Zuvpq Gapon 96-05-2216Ipaft gap [Moles/Vol]11.0 mmol/L8.0 - 16.0 meq/LBon Secours Mercy HealthComment on above:ANION GAP = Sodium -(Chloride + CO2) Performed at [facility] [address] [place] [address] BASIC METABOL PANELon 45-71-5931Gocerci [Mass/Vol]8.5 mg/dLNormal8.5-10.5SDel Sol Medical CenterComment on above:Performed By: #### GREG CORRALES3, #### [facility] [address] [place] [address] 48668Wdsddtig [Moles/Vol]101 mmol/IAlriob66-695IbaagUnited Memorial Medical CenterComment on above:Performed By: #### GREG CORRALES3, HH #### [facility] [address] [place] [address] 136[address]BQ9 [Moles/Vol]22 mmol/AItb26-59ZzjbqUnited Memorial Medical CenterComment on above:Performed By: #### GREG CORRALES3, #### [facility] [address] [place] [address] 09335Yeqlxaysxq [Mass/Vol]0.9 mg/dLNormal0.4-1.2SDel Sol Medical CenterComment on above:Performed By: #### REINA CORRALES, HH #### [facility] [address] [place] [address] 366[address]Vyddiic [Mass/Vol]165 mg/aOMyqv02-028OycpuUnited Memorial Medical Center Comment on above:Performed By: #### GREG CORRALES3, #### [facility] [address] [place] [address] 98268Fexmugeja [Moles/Vol]4.2 mmol/LNormal3.5-5.2SDel Sol Medical CenterComment on above:Performed By: #### GREG CORRALES3, HH #### [facility] [address] [place] [address] 19215Moqdzy [Moles/Vol]134 mmol/LGuf231-591FrslkUnited Memorial Medical Center Comment on above:Performed By: #### GREG CORRALES3, HH #### [facility] [address] [place] [address] 69[address]Band nitrogen [Mass/Vol]18 mg/dLNormal7-22SaDell Children's Medical CenterComment on above:Performed By: #### NTBNP, TSH3, #### [facility] [address] [place] [address] 39638Qpivu metabolic 2000 panelon 99-86-3027Xpdrkdf [Mass/Vol]8.5 mg/dL 8.5 - 10.5 mg/dLBon [facility] SystemComment on above:Performed at [facility] [address] [place] [address]Rpekcqjv [Moles/Vol]101 mmol/L98 - 111 meq/LBon [facility] SystemCO2 [Moles/Vol]22 mmol/LLow23 - 33 meq/LBon [facility] SystemCreatinine [Mass/Vol]0.9 mg/dL0.4 - 1.2 mg/dLBon [facility] SystemGlucose [Mass/Vol]165 mg/rZUobl03 - 108 mg/dLBon [facility] SystemInterpretation and review of laboratory resultsAbnormalBon [facility] SystemPotassium [Moles/Vol]4.2 mmol/L3.5 - 5.2 meq/LBon [facility] Sodium [Moles/Vol]134 mmol/ISxr960 - 145 meq/LBon [facility] SystemUrea nitrogen [Mass/Vol]18 mg/dL7 - 22 mg/dLBon [facility] SystemBrain Natriuretic Peptideon 51-75-0112Ljdwdlrnitl peptide.B prohormone N-Terminal IA [Mass/Vol] 4637.0 pg/mLHigh0.0 - 449.0 pg/mLBon [facility] SystemComment on above: Performed at [facility] [address] [place] [address]TXQ Rhythm Stripon 05-06-0532HHMKLZXNtu [facility] SystemHR 120PACEARTBon [facility] Health SystemPACEARTVirginia Hospital CenterGFR, ESTIMATEDon 68-11-8863UZF/1.73 sq M.predicted MDRD (S/P/Bld) [Vol rate/Area]85 mL/min/{1.73_m2}Normal>60Bon [facility] SystemComment on above:Pediatric calculator link https://www.kidney.org/professionals/kdoqi/gfr_calculatorped Effective Dec [...] that affects renal tubular [place] [address] Result Comment: Pediatric calculator link https://www.kidney.org/professionals/kdoqi/gfr_calculatorped Effective [...] tubular secretion.Performed By: #### SAVANNA, TSH3, #### [address] [address]WQSAKAG POCon 91-44-1099Pwnbxmt [Mass/Vol]155 mg/tKNcug91-759Fep [facility] on above:Performed at [address] [address]Xnnzdmdkf By: #### POCGL #### [address] [address]Chwbmvq Auto test strip (Bld) [Mass/Vol]on 02-22-2024 Interpretation and review of laboratory resultsAbnormalCarilion Roanoke Memorial HospitalHGB,HCTon 44-73-5232Qjvewnutbw (Bld) [Volume fraction] 28.7 %Low42.0-52.0[facility] on above:Performed at [address] [address]Pdbapfoda By: #### NTTRINIDADP, TSH3, #### [address] [address]Kokyacxilk (Bld) [Mass/Vol]9.1 g/dLLow14.0-18.0Virginia Hospital CenterComment on above:Performed By: #### REINA CORRALES, JE #### [facility] [address] [place] [address] 13376Sdopheiouu (Bld) [Volume fraction]30.0 %Low42.0-52.0United Memorial Medical CenterComment on above:Performed By: #### REINA CORRALES, JE #### [address] [address]Vccfqjmfuq (Bld) [Mass/Vol]9.5 g/dLLow14.0-18.0United Memorial Medical CenterComment on above:Performed By: #### REINA CORRALES, #### [address] [address]Etzyezgpqt and Hematocrit panel (Bld)on 60-85-7804Ehxitofkqzjmwh and review of laboratory resultsAbnormCarilion Roanoke Community HospitalHematocrit (Bld) [Volume fraction]30.0 %Low42.0 - 52.0 %Bon [facility] SystemComment on above:Performed at [facility] [address] [place] [address]Thulgzrtuf (Bld) [Mass/Vol]9.5 g/dLLowVirginia Hospital Center Interpretation and review of laboratory resultsAbnoLead-Deadwood Regional HospitalNT PRO-B NATRIURETIC PEPTIDEon 96-16-7296Sflgelqnopg peptide B (Bld) [Mass/Vol]4637.0 pg/mLHigh0.0-449.0[facility] Comment on above:Performed By: #### REINA CORRALES, #### [address] [address]Rqmtprrgwqo peptide.B prohormone N-Terminal IA [Mass/Vol]on 28-81-7601Aknnccrgucrwmm and review of laboratory resultsAbnoClinch Valley Medical CenterNo Panel Informationon 45-98-[address]Mgq [facility] Luke's HospitalTSH DL <= 0.005 mIU/L Qnon 41-33-2942VHC Qn0.678 m[IU]/LBon [facility] Health SystemComkresge eye institute on above:Performed at [facility] [address] [place] [address]LWT THIRD GENERATIONon 00-41-5056ELE THIRD GENERATION0.678 uIU/mLNormal0.400-4.200SaDell Children's Medical CenterComment on above:Performed By: #### REINA CORRALES, #### [facility] [address] [place] [address] 66[address]FIIBSKW POCon 99-90-7839Ikoxtwv [Mass/Vol]185 mg/yPVlee32-105Aps [facility] SystemComkresge eye institute on above:Performed at [facility] [address] [place] [address]Hdeiioxjk By: #### REINA CORRALES, JE #### [facility] [address] [place] [address] 79[address]Ffrmydn Auto test strip (Bld) [Mass/Vol]on 02-21-2024 Interpretation and review of laboratory resultsAbnormalCarilion Roanoke Memorial HospitalHGB,HCTon 88-30-4805Bmkgdjyldz (Bld) [Volume fraction] 32.1 %Low42.0-52.0Bon [facility] on above:Performed at [facility] [address] [place] [address]Whkuxlkbw By: #### REINA CORRALES, #### [facility] [address] [place] [address]4669Acgvyfwhsn (Bld) [Mass/Vol]10.3 g/dLLow14.0-18.0[facility] on above:Performed By: #### REINA CORRALES, #### [facility] [address] [place] [address] 335[address]Tdzxmfteuc and Hematocrit panel (Bld)on 10-72-7700Zshinlhisymxnk and review of laboratory resultsAbnormalBon Secours Health System HealthTYPE AND SCREENon 91-76-2495CREHQhe [facility] Health SystemRh Factor PositiveBon [facility] HealthTYPE AND SCREEN CAPTURE on 72-41-4018BDARQONH FAZAL CAPTURENegativeNormalSaint Caryn's Medical Center Comment on above:Performed By: #### POCGL #### [facility] [address] [place], [place] [address]VO CAPTURE (2 D CLONES)PositiveMemorial Hermann Southwest Hospital Comment on above:Performed By: #### POCGL #### [facility] [address] [place], [place] [address]IAQ CAPTUREONoLas Palmas Medical CenterComment on above: Performed By: #### POCGL #### [facility] [address] [place] [address]MZ LUMBAR SPINE 1 VWon 13-53-0436HB LUMBAR SPINE 1 VWMOBILE LATERAL LUMBAR SPINE: [...] Signed by: Partha Victor MD 02/21/24 Final resultMemorial Hermann Southwest HospitalXR Lumbar spine Single viewon 19-26-3597Tcybuyezhonqjg appearance of the lumbar spine. This report has been created using voice recognition software. It may contain minor errors which are inherent in voice recognition technology. Electronically signed by Dr. Partha VictorSARAI RE[facility] CONSOLIDATEDMOBILTosha LATERAL LUMBAR SPINE: CLINICAL INFORMATION: surgery COMPARISON: No prior study. TECHNIQUE: A single lateral mobile view of the lumbar spine was obtained For localization purposes. FINDINGS: 2 spinal needles are present posteriorly, directed at the L1 and L2 levels. [facility] ROBERT VALEPartha ball MD - 02/21/2024 [...] technology. Electronically signed by Dr. Partha Cabrera [facility] Health SystemRadiology Study observation (narrative)[facility] [address] [facility] HospitalXR Lumbar spine Single viewOrdered By: Partha Victor on 50-31-6370Jgl [facility] [address] [facility] Work Phone: ecg 12 Leadon 75-17-5600Vah[place] fibrillation, rightward axis, low voltage, PVCs, nonspecific T wave abnormality, abnormal ECGCPACSOhioHealth Riverside Methodist Hospital Work Phone: activated partial thromboplastin time (aPTT) in platelet poor plasma by coagulation aon 71-49-0837vSZX Coag (PPP) [Time] Activated partial thromboplastin time (aPTT) in platelet poor plasma by coagulation aHigh22.3-36.2FMercy Health – The Jewish HospitalBasophils Auto (Bld) [#/Vol]on 33-08-6431Kjxznmoyg (Bld) [#/Vol]Automated basophil count0.0-0.1 [facility] HospitalBasophils/100 WBC Auto (Bld)on 02-14-2024 Basophils/100 WBC (Bld)Automated basophil %0.2-2.0[facility] HospitalEosinophils/100 WBC Auto (Bld)on 43-32-5439Ronqvzeugci/100 WBC (Bld) Automated eosinophil %0.9-7.0[facility] HospitalErythrocyte distribution width Auto (RBC) [Ratio]on 07-33-4946Qmdgwskvxmz distribution width (RBC) [Ratio]Erythrocyte distribution width [Ratio] by Automated count11.0-15.0 [facility] Brentwood HospitalEstimated glomerular filtration rate (GFR) non- Americanon 84-84-0949EPP/1.73 sq M.predicted among non-blacks MDRD (S/P/Bld) [Vol rate/Area]Estimated glomerular filtration rate (GFR) non- AmericanLow>=60 mL/min/1.73m 2FMercy Health – The Jewish HospitalHematocrit Auto (Bld) [Volume fraction]on 80-93-9206Nzecjmqbtx (Bld) [Volume fraction]Hematocrit [Volume Fraction] of Blood by Automated lvlamCsj52.0-54.0[facility] HospitalHemoglobin [Mass/volume] in Bloodon 72-12-6172Fhfnkcvxms (Bld) [Mass/Vol]Hemoglobin [Mass/volume] in AethhBax66.0-18.0[facility] Brent[facility] HospitalINR in Platelet poor plasma by Coagulation assayon 41-89-1723SYC Coag (PPP) [Relative time]INR in Platelet poor plasma by Coagulation assay [facility] Brentwood HospitalComment on above:DESIRED INR:2.0-3.0 CONDITIONS NOT LISTED BELOW2.5-3.5 FOR PROSTHETIC HEART VALVE REPLACEMENT2.5-3.5 RECURRENT THROMBOSISLaboratory - Chemistry and Chemistry - challengeon 35-12-4627Ibrrmcm [Mass/Vol]9.2 mg/dL8.5-10.1FMercy Health – The Jewish HospitalChloride [Moles/Vol] 108 mmol/MRfkt17-376LghoxvtozSuburban Community Hospital & Brentwood HospitalCO2 [Moles/Vol]28.1 mmol/L 21.0-32.0[facility] HospitalCreatinine [Mass/Vol]1.47 mg/dLHigh 0.70-1.30[facility] HospitalGFR/1.73 sq M.predicted MDRD (S/P/Bld) [Vol rate/Area]56 mL/min/{1.73_m2}Low>=60 mL/min/1.73m 2FMercy Health – The Jewish HospitalGlucose [Mass/Vol]101 mg/hH67-625NbzyipmioSuburban Community Hospital & [facility] Potassium [Moles/Vol]4.2 mmol/L3.5-5.1FKettering Memorial Hospitalodium [Moles/Vol]144 mmol/C547-540EvgjqqkbdSuburban Community Hospital & Brentwood HospitalUrea nitrogen [Mass/Vol]25.0 mg/dLHigh7.0-18.0[facility] HospitalUrea nitrogen/Creatinine [Mass ratio]17.0 mg/mgSuburban Community Hospital & Brentwood Hospital Laboratory - Hematology and Cell countson 55-32-0273Ivydcuvz granulocytes/100 WBC (Bld)0.2 %0.0-0.5FMercy Health – The Jewish HospitalLeukocytes [#/volume] corrected for nucleated erythrocytes in Blood by Automated counon 38-04-5179NSK corrected for nucl RBC Auto (Bld) [#/Vol]Leukocytes [#/volume] corrected for nucleated erythrocytes in Blood by Automated coun4.0-11.0[facility] HospitalLymphocytes Auto (Bld) [#/Vol]on 47-24-1522Finksgkmudx (Bld) [#/Vol]Lymphocytes [#/volume] in Blood by Automated countLow1.2-3.8[facility] HospitalLymphocytes/100 WBC Auto (Bld)on 02-14-2024 Lymphocytes/100 WBC (Bld)Lymphocytes/100 leukocytes in Blood by Automated count Low20.5-60.0[facility] HospitalH Auto (RBC) [Entitic mass]on 07-03-7877BVB (RBC) [Entitic mass]MCH [Entitic mass] by Automated countHigh 25.9-34.0[facility] Memorial HospitalHC Auto (RBC) [Mass/Vol]on 67-68-4690UMLF (RBC) [Mass/Vol]MCHC [Mass/volume] by Automated count29.9-35.2 [facility] Brent[facility] HospitalMCV Auto (RBC) [Entitic vol]on 50-60-7160LFZ (RBC) [Entitic vol]MCV [Entitic volume] by Automated qyaqpKcbo82.0-94.0[facility] HospitalMonocytes Auto (Bld) [#/Vol]on 61-37-5315Jpcyriaiy (Bld) [#/Vol]Automated blood monocyte count0.3-0.8[facility] Monocytes/100 WBC Auto (Bld)on 50-45-8990Gfeewakbf/100 WBC (Bld)Automated monocyte %1.7-12.0[facility] HospitalNeutrophils Auto (Bld) [#/Vol]on 97-60-8104Mriduxpddzv (Bld) [#/Vol]Neutrophils [#/volume] in Blood by Automated count1.4-6.5FMercy Health – The Jewish HospitalNeutrophils/100 WBC Auto (Bld)on 76-34-8042Fhlimvaulqj/100 WBC (Bld)Automated neutrophil %43.0-75.0 [facility] Brent[facility] HospitalNo Panel Informationon 98-62-3064Rcboexwezbp # (Auto)0.2 10 3/uL0.0-0.7FMercy Health – The Jewish HospitalImmature Granulocyte # (Auto)0.01 10 3/uL0.00-0.03[facility] Brentwood HospitalPlatelet mean volume Auto (Bld) [Entitic vol]on 08-89-3039Eqfjukaz mean volume (Bld) [Entitic vol] Platelet mean volume [Entitic volume] in Blood by Automated count9.5-13.5 [facility] Brentwood HospitalPlatelets Auto (Bld) [#/Vol]on 02-14-2024 Platelets (Bld) [#/Vol]Platelets [#/volume] in Blood by Automated dqavp591-075 [facility] Brentwood HospitalProthrombin time (PT)on 95-91-9819QM Coag (PPP) [Time]Prothrombin time (PT)High9.0-11.6FMercy Health – The Jewish HospitalRBC Auto (Bld) [#/Vol]on 89-28-0746BSB (Bld) [#/Vol]Erythrocytes [#/volume] in Blood by Automated countLow4.70-6.10St. Francis Hospitalerum or plasma anion gap determinationon 14-96-0462Nolce gap [Moles/Vol]Serum or plasma anion gap determinationSuburban Community Hospital & Brentwood HospitalAlanine aminotransferase [Enzymatic activity/volume] in Serum or PlasmaOrdered By: Opal Ga on 89-94-9489TZU [Catalytic activity/Vol]Alanine aminotransferase [Enzymatic activity/volume] in Serum or Plasma7-[facility] Brent[facility] HospitalAlbumin [Mass/volume] in Serum or Plasma by Bromocresol green (BCG) dye binding metho Ordered By: Oapl Ga on 85-66-5122Vztuqiz BCG dye [Mass/Vol]Albumin [Mass/volume] in Serum or Plasma by Bromocresol green (BCG) dye binding metho 3.5-5.7FMercy Health – The Jewish HospitalAlkaline phosphatase [Enzymatic activity/volume] in Serum or PlasmaOrdered By: Opal Ga on 51-21-2637UPR [Catalytic activity/Vol]Alkaline phosphatase [Enzymatic activity/volume] in Serum or KtzecxLgxt30-545QicpqbbalSuburban Community Hospital & Brentwood HospitalAspartate aminotransferase [Enzymatic activity/volume] in Serum or PlasmaOrdered By: Opal Ga on 31-26-1612LOU [Catalytic activity/Vol]Aspartate aminotransferase [Enzymatic activity/volume] in Serum or FemippLrtm60-31BwofwhhvoSuburban Community Hospital & Brentwood HospitalBasophils Auto (Bld) [#/Vol]Ordered By: Opal Ga on 12-30-2023 Basophils (Bld) [#/Vol]Automated basophil count0.0-0.2FMercy Health – The Jewish HospitalBasophils/100 WBC Auto (Bld)Ordered By: Opal Ga on 12-30-2023 Basophils/100 WBC (Bld)Automated basophil %.[facility] Bilirubin.total [Mass/volume] in Serum or PlasmaOrdered By: Opal Ga on 85-96-9544Ulfawzcsr [Mass/Vol]Bilirubin.total [Mass/volume] in Serum or Plasma 0.3-1.0[facility] Brentwood HospitalCalcium [Mass/volume] in Serum or Plasma Ordered By: Opal Ga on 72-64-2936Xhdctgg [Mass/Vol]Calcium [Mass/volume] in Serum or Plasma8.6-10.3FMercy Health – The Jewish HospitalCarbon dioxide, total [Moles/volume] in Serum or PlasmaOrdered By: Opal Ga on 81-19-6632XQ6 [Moles/Vol]Carbon dioxide, total [Moles/volume] in Serum or Lafbhk34.0-31.0 [facility] HospitalChloride [Moles/volume] in Serum or Plasma Ordered By: Opal Ga on 34-92-1025Vjwpbnmh [Moles/Vol]Chloride [Moles/volume] in Serum or Zfprbl12-303AwbudpsgxSuburban Community Hospital & Brentwood HospitalCreatinine [Mass/volume] in Serum or PlasmaOrdered By: Opal Ga on 33-88-7106Eugqghtncf [Mass/Vol]Creatinine [Mass/volume] in Serum or Plasma0.70-1.30[facility] HospitalEosinophils Auto (Bld) [#/Vol]Ordered By: Opal Ga on 53-80-8367Jqpueiandpl (Bld) [#/Vol]Automated eosinophil count0.0-0.45[facility] Brent[facility] HospitalEosinophils/100 WBC Auto (Bld)Ordered By: Opal Ga on 60-66-0468Niwacfsolss/100 WBC (Bld)Automated eosinophil %.[facility] & Brentwood HospitalErythrocyte distribution width Auto (RBC) [Ratio]Ordered By: Opal Ga on 54-45-8047Hrbodonwheq distribution width (RBC) [Ratio]Erythrocyte distribution width [Ratio] by Automated count12.0-14.8[facility] Brentwood HospitalGlobulin Calc (S) [Mass/Vol]Ordered By: Opal Ga on 38-69-5253Kdgdxtdd (S) [Mass/Vol]Serum globulin measurement by calculation (mass/volume)[facility] HospitalGlucose [Mass/volume] in Serum or PlasmaOrdered By: Opal Ga on 27-80-5109Yqmqcwk [Mass/Vol]Glucose [Mass/volume] in Serum or Plasma 70-100[facility] Brentwood HospitalComment on above:ADA recommended reference rangeRandom Glucose Reference Range is dependent on time and content of last meal. Glucose of more than 200 mg/dL in a nonstressed, ambulatory subject supports the diagnosisof Diabetes Mellitus.Hematocrit Auto (Bld) [Volume fraction]Ordered By: Opal Ga on 44-41-3077Nyhzvkpncc (Bld) [Volume fraction] Hematocrit [Volume Fraction] of Blood by Automated ffgxkYwc68.8-50.0[facility] Brentwood HospitalHemoglobin [Mass/volume] in BloodOrdered By: Opal Ga on 49-24-9709Aizobfgscl (Bld) [Mass/Vol]Hemoglobin [Mass/volume] in BloodLow 13.0-17.0[facility] Brentwood HospitalLeukocytes [#/volume] corrected for nucleated erythrocytes in Blood by Automated counOrdered By: Opal Ga on 84-65-7338TXW corrected for nucl RBC Auto (Bld) [#/Vol]Leukocytes [#/volume] corrected for nucleated erythrocytes in Blood by Automated coun4.1-10.5FMercy Health – The Jewish HospitalLymphocytes Auto (Bld) [#/Vol]Ordered By: Opal Ga on 36-23-5913Gczwoygndxk (Bld) [#/Vol]Lymphocytes [#/volume] in Blood by Automated countLow1.00-4.8[facility] HospitalLymphocytes/100 WBC Auto (Bld) Ordered By: Opal Ga on 38-88-5917Muxcbfggndm/100 WBC (Bld)Lymphocytes/100 leukocytes in Blood by Automated count.[facility] HospitalMCH Auto (RBC) [Entitic mass]Ordered By: Opal Ga on 55-99-2275LGT (RBC) [Entitic mass]MCH [Entitic mass] by Automated kfmwuWiqy19.5-35.2FMercy Health – The Jewish HospitalMCHC Auto (RBC) [Mass/Vol]Ordered By: Opal Ga on 52-90-4850XLXT (RBC) [Mass/Vol]MCHC [Mass/volume] by Automated count32.5-35.6FMercy Health – The Jewish HospitalMCV Auto (RBC) [Entitic vol]Ordered By: Opal Ga on 19-97-9338DPO (RBC) [Entitic vol]MCV [Entitic volume] by Automated countHigh 83.5-101[facility] HospitalMonocytes Auto (Bld) [#/Vol]Ordered By: Opal Ga on 44-47-5385Wnawtkdie (Bld) [#/Vol]Automated blood monocyte count 0.0-0.8[facility] HospitalMonocytes/100 WBC Auto (Bld)Ordered By: Opal Ga on 43-18-9454Czsczvdez/100 WBC (Bld)Automated monocyte %.[facility] HospitalNeutrophils Auto (Bld) [#/Vol]Ordered By: Opal Ga on 40-72-6170Wwkhcmvthwq (Bld) [#/Vol]Neutrophils [#/volume] in Blood by Automated count1.8-7.7FMercy Health – The Jewish HospitalNeutrophils/100 WBC Auto (Bld) Ordered By: Opal Ga on 49-30-1757Cbjogkklnjz/100 WBC (Bld)Automated neutrophil %.[facility] HospitalNo Panel InformationOrdered By: Opal Ga on 74-50-6603Bkmirzczb GFR (CKD-EPI)> 60.0 mL/MinSuburban Community Hospital & Brentwood HospitalPharmacy Creatinine Clearance (ChemN/[facility] HospitalNucleated erythrocytes [Presence] in Blood by Automated countOrdered By: Opal Ga on 96-83-9920Znszqsbbu RBC Auto Ql (Bld)Nucleated erythrocytes [Presence] in Blood by Automated count0-0.5FMercy Health – The [facility] Hospital Platelet mean volume Auto (Bld) [Entitic vol]Ordered By: Opal Ga on 58-60-0750Weakskcp mean volume (Bld) [Entitic vol]Platelet mean volume [Entitic volume] in Blood by Automated count6.6-10.1FMercy Health – The Jewish Hospital Platelets Auto (Bld) [#/Vol]Ordered By: Opal Ga on 88-63-8570Biriddybm (Bld) [#/Vol]Platelets [#/volume] in Blood by Automated -874AmqwmlesuSuburban Community Hospital & Brentwood HospitalPotassium [Moles/volume] in Serum or PlasmaOrdered By: Opal Ga on 30-09-1682Oedgpbjqb [Moles/Vol]Potassium [Moles/volume] in Serum or Plasma 3.5-5.1FMercy Health – The Jewish HospitalProtein [Mass/volume] in Serum or Plasma Ordered By: Opal Ga on 11-70-7696Jdprnrl [Mass/Vol]Protein [Mass/volume] in Serum or PlasmaLow6.4-8.9[facility] HospitalRBC Auto (Bld) [#/Vol] Ordered By: Opal Ga on 08-82-0104EFX (Bld) [#/Vol]Erythrocytes [#/volume] in Blood by Automated countLow3.90-5.60[facility] Hospitalerum or plasma albumin/globulin mass ratioOrdered By: Opal Ga on 12-30-2023 Albumin/Globulin [Mass ratio]Serum or plasma albumin/globulin mass ratio [facility] Hospitalerum or plasma anion gap determinationOrdered By: Opal Ga on 08-75-6733Nwogp gap [Moles/Vol]Serum or plasma anion gap determination6.0-15.0[facility]. [facility] Hospitalodium [Moles/volume] in Serum or PlasmaOrdered By: Opal Ga on 84-64-5389Ctslcy [Moles/Vol]Sodium [Moles/volume] in Serum or Kplgha016-191NyiamzjdpSuburban Community Hospital & [facility] Thyrotropin [Units/volume] in Serum or PlasmaOrdered By: Opal Ga on 59-51-1101YIU QnThyrotropin [Units/volume] in Serum or PlasmaLow0.45-5.33 [facility] HospitalThyroxine (T4) free [Mass/volume] in Serum or PlasmaOrdered By: Opal Ga on 67-06-1099Vkjq T4 [Mass/Vol]Thyroxine (T4) free [Mass/volume] in Serum or PlasmaHigh0.61-1.12[facility] Urea nitrogen [Mass/volume] in Serum or PlasmaOrdered By: Opal Ga on 50-40-4105Miml nitrogen [Mass/Vol]Urea nitrogen [Mass/volume] in Serum or Plasma 09-28[facility] HospitalWBC Auto (Bld) [#/Vol]Ordered By: Opal Ga on 23-09-4125TXA (Bld) [#/Vol]Leukocytes [#/volume] in Blood by Automated count4.1-10.5FMercy Health – The Jewish HospitalAlanine aminotransferase [Enzymatic activity/volume] in Serum or PlasmaOrdered By: Opal Ga on 02-81-3536GGJ [Catalytic activity/Vol]18 U/L7-52[facility] HospitalAlbumin [Mass/volume] in Serum or Plasma by Bromocresol green (BCG) dye binding methoOrdered By: Opal Ga on 20-69-3809Fvxgxlq BCG dye [Mass/Vol]4.1 g/dL3.5-5.7FMercy Health – The Jewish HospitalAlkaline phosphatase [Enzymatic activity/volume] in Serum or PlasmaOrdered By: Opal Ga on 47-76-6769SKL [Catalytic activity/Vol]117 U/YMmdl18-125MhuzzkgrzSuburban Community Hospital & [facility] Aspartate aminotransferase [Enzymatic activity/volume] in Serum or PlasmaOrdered By: Opal Ga on 67-39-5662AKN [Catalytic activity/Vol]29 U/R47-25LqturwokrSuburban Community Hospital & Brentwood HospitalBasophils Auto (Bld) [#/Vol]Ordered By: Opal Ga on 28-32-1226Syjvttchg (Bld) [#/Vol]0.0 10*3/uL0.0-0.2FMercy Health – The Jewish HospitalBasophils/100 WBC Auto (Bld)Ordered By: Opal Ga on 09-12-2023 Basophils/100 WBC (Bld)0.8 %.[facility] HospitalBilirubin.total [Mass/volume] in Serum or PlasmaOrdered By: Opal Ga on 03-99-4029Odkemqugc [Mass/Vol]0.7 mg/dL0.3-1.0[facility] HospitalCalcium [Mass/volume] in Serum or PlasmaOrdered By: Opal aG on 36-99-1474Gsmmjwg [Mass/Vol]9.7 mg/dL8.6-10.3FMercy Health – The Jewish HospitalCarbon dioxide, total [Moles/volume] in Serum or PlasmaOrdered By: Opal Ga on 51-36-0184JV9 [Moles/Vol]30.3 mmol/L21.0-31.0[facility] HospitalChloride [Moles/volume] in Serum or PlasmaOrdered By: Opal Ga on 50-80-0076Rdxaaavj [Moles/Vol]105 mmol/J39-287KfhwqahaoSuburban Community Hospital & Brentwood HospitalCholesterol [Mass/volume] in Serum or PlasmaOrdered By: Opal Ga on 30-64-5250Vlyawutikbm [Mass/Vol]135 mg/jWEem693-669FdpggonqiSuburban Community Hospital & Brentwood HospitalComment on above: Chol less than 200 mg/dl low riskChol 201-239 mg/dl borderline riskChol 240 mg/dl and greater high riskCholesterol in LDL Calc [Mass/Vol]Ordered By: Opal Ga on 74-73-0493Vupnamyrwjv in LDL [Mass/Vol]43 mg/dL0-100[facility] HospitalComment on above:LDL ATP III CLASSIFICATIONLDL less than 100 mg/dL OptimalLDL 100-129 mg/dL Near or above huehlpuXLM697-846 mg/dL Borderline highLDL 160-189 mg/dL HighLDL greater than 189 mg/dL Very highCholesterol in VLDL Calc [Mass/Vol]Ordered By: Opal Ga on 24-68-4583Rvspgbzjfkq in VLDL [Mass/Vol]10 mg/dLSuburban Community Hospital & Brentwood HospitalCreatinine [Mass/volume] in Serum or PlasmaOrdered By: Opal Ga on 50-80-8643Asfkrwujlf [Mass/Vol]1.19 mg/dL0.70-1.30[facility] HospitalEosinophils Auto (Bld) [#/Vol] Ordered By: Opal Ga on 39-73-3544Zwafeskgkvt (Bld) [#/Vol]0.5 10*3/uLHigh 0.0-0.45[facility] HospitalEosinophils/100 WBC Auto (Bld)Ordered By: Opal Ga on 69-23-5483Lrqxvbeqbkd/100 WBC (Bld)10.7 %.[facility] HospitalErythrocyte distribution width Auto (RBC) [Ratio]Ordered By: Opal Ga on 34-68-9677Oprkafsfbpc distribution width (RBC) [Ratio]13.9 %12.0-14.8 [facility] HospitalGlobulin Calc (S) [Mass/Vol]Ordered By: Opal Ga on 59-16-8178Sqmdfalh (S) [Mass/Vol]2.3 g/dLSuburban Community Hospital & Brentwood HospitalGlucose [Mass/volume] in Serum or PlasmaOrdered By: Opal Ga on 58-39-4367Qpvywfc [Mass/Vol]85 mg/mE45-663MojshrgubSuburban Community Hospital & [facility] Comment on above:ADA recommended reference rangeRandom Glucose Reference Range is dependent on time and content of last meal. Glucose of more than 200 mg/dL in a nonstressed, ambulatory subject supports the diagnosisof Diabetes Mellitus. Hematocrit Auto (Bld) [Volume fraction]Ordered By: Opal Ga on 09-12-2023 Hematocrit (Bld) [Volume fraction]39.6 %38.8-50.0[facility] HospitalHemoglobin [Mass/volume] in BloodOrdered By: Opal Ga on 09-12-2023 Hemoglobin (Bld) [Mass/Vol]13.1 g/dL13.0-17.0[facility] Leukocytes [#/volume] corrected for nucleated erythrocytes in Blood by Automated counOrdered By: Opal Ga on 09-72-8922VDX corrected for nucl RBC Auto (Bld) [#/Vol]5.0 10*3/uL4.1-10.5FMercy Health – The Jewish HospitalLymphocytes Auto (Bld) [#/Vol]Ordered By: Opal Ga on 10-12-8723Xfvquderffg (Bld) [#/Vol]1.4 10*3/uL1.00-4.8[facility] HospitalLymphocytes/100 WBC Auto (Bld) Ordered By: Opal Ga on 33-46-4153Zmfyikijbqj/100 WBC (Bld)27.8 %.[facility] HospitalH Auto (RBC) [Entitic mass]Ordered By: Opal Ga on 38-29-3423XKD (RBC) [Entitic mass]35.2 pg27.5-35.2FMercy Health – The Jewish HospitalMCHC Auto (RBC) [Mass/Vol]Ordered By: Opal Ga on 07-37-8661PFSS (RBC) [Mass/Vol]33.1 g/dL32.5-35.6FMercy Health – The Jewish HospitalMCV Auto (RBC) [Entitic vol]Ordered By: Opal Ga on 64-27-9639DZV (RBC) [Entitic vol]106.3 fL High83.5-101[facility] HospitalMonocytes Auto (Bld) [#/Vol]Ordered By: Opal Ga on 66-66-0303Jrsyszgfx (Bld) [#/Vol]0.5 10*3/uL0.0-0.8[facility] HospitalMonocytes/100 WBC Auto (Bld)Ordered By: Opal Ga on 47-38-3526Ckbwyqlqz/100 WBC (Bld)9.7 %.[facility] Neutrophils Auto (Bld) [#/Vol]Ordered By: Opal Ga on 41-84-2361Anqixkjqxyh (Bld) [#/Vol]2.6 10*3/uL1.8-7.7FMercy Health – The Jewish HospitalNeutrophils/100 WBC Auto (Bld)Ordered By: Opal Ga on 18-55-0693Suszpnxtsft/100 WBC (Bld)51.0 %.[facility] HospitalNo Panel InformationOrdered By: Opal Ga on 52-10-2341Htwzfescw GFR (CKD-EPI)> 60.0 mL/MinSuburban Community Hospital & [facility] Pharmacy Creatinine Clearance (ChemN/AFMercy Health – The Jewish HospitalNucleated erythrocytes [Presence] in Blood by Automated countOrdered By: Opal Ga on 74-68-1420Zakoznnau RBC Auto Ql (Bld)0.1 /100{WBC}0-0.5FMercy Health – The Jewish HospitalPlatelet mean volume Auto (Bld) [Entitic vol]Ordered By: Opal Ga on 88-11-7479Dspegztf mean volume (Bld) [Entitic vol]8.6 fL6.6-10.1 [facility] HospitalPlatelets Auto (Bld) [#/Vol]Ordered By: Opal Ga on 41-68-9240Nbqcgwugu (Bld) [#/Vol]163 10*3/uB910-149JhppuaymvSuburban Community Hospital & Brentwood HospitalPotassium [Moles/volume] in Serum or PlasmaOrdered By: Opal Ga on 69-36-4286Bewkmdeqm [Moles/Vol]4.0 mmol/L3.5-5.1FMercy Health – The Jewish HospitalProstate specific Ag [Mass/volume] in Serum or PlasmaOrdered By: Opal Ga on 52-65-3322Pduylebe specific Ag [Mass/Vol]2.430 ng/mL0.000-4.000[facility] HospitalComment on above:Serial tumor marker results determined by assays using different manufacturers or methods may not be comparable.[facility] document clerk and method:[employer] DXI, CHEMILUMINESCENT IMMUNOASSAY.Protein [Mass/volume] in Serum or PlasmaOrdered By: Opal Ga on 43-17-4258Ztfegtp [Mass/Vol]6.4 g/dL6.4-8.9[facility] HospitalRBC Auto (Bld) [#/Vol]Ordered By: Opal Ga on 06-88-7797JWI (Bld) [#/Vol]3.73 10*6/uLLow3.90-5.60[facility]. [facility] Hospitalerum or plasma albumin/globulin mass ratioOrdered By: Opal Ga on 09-12-2023 Albumin/Globulin [Mass ratio]1.8 {ratio}[facility]. [facility] Hospitalerum or plasma anion gap determinationOrdered By: Opal Ga on 37-84-8413Nunhu gap [Moles/Vol]9.7 mmol/L6.0-15.0[facility]. [facility] Hospitalerum or plasma high density lipoprotein (HDL) cholesterol measurementOrdered By: Opal Ga on 02-61-2992Ckbywbavudl in HDL [Mass/Vol]81 mg/uQ37-90MggqabeixSuburban Community Hospital & Brentwood HospitalComment on above:HDL CHOL ATP-III CLASSIFICATION Cardiovascular RiskHDL > or equal to 60 mg/dL LOWHDL < 40 mg/dL HIGHSerum or plasma total cholesterol/high density lipoprotein (HDL) cholesterol mass ratOrdered By: Opal Ga on 55-32-6583Wclgitdmxgb.total/Cholesterol in HDL [Mass ratio]1.7 {ratio} <5.0[facility]. Francis Hospitalodium [Moles/volume] in Serum or Plasma Ordered By: Opal Ga on 38-11-2651Iivieb [Moles/Vol]141 mmol/U178-615AzstygpdpSuburban Community Hospital & Brentwood HospitalThyrotropin [Units/volume] in Serum or PlasmaOrdered By: Opal Ga on 22-27-0810GXD Qn0.19 m[IU]/LLow0.45-5.33[facility] HospitalThyroxine (T4) free [Mass/volume] in Serum or PlasmaOrdered By: Opal Ga on 40-68-2485Aqgm T4 [Mass/Vol]1.24 ng/dLHigh0.61-1.12[facility] HospitalTriglyceride [Mass/volume] in Serum or PlasmaOrdered By: Opla Ga on 45-76-3465Hghtnfhkamoi [Mass/Vol]53 mg/dL0-149[facility] HospitalComment on above:TRIG ATP III CLASSIFICATIONTRIG less than 150 mg/dL NormalTRIG 150-199 mg/dL Borderline highTRIG 200-500 mg/dL High TRIG greater than 500 mg/dL Very highStandard traceable to the Center for Disease Co nrtrol and Prevention (CDC) test method.Urea nitrogen [Mass/volume] in Serum or PlasmaOrdered By: Opal Ga on 48-15-1250Xdtq nitrogen [Mass/Vol]26 mg/dLHigh 7-25[facility] HospitalWBC Auto (Bld) [#/Vol]Ordered By: Opal Ga on 45-17-3925JAJ (Bld) [#/Vol]5.0 10*3/uL4.1-10.5FMercy Health – The Jewish HospitalAlanine aminotransferase [Enzymatic activity/volume] in Serum or Plasma Ordered By: Bhupinder Mcintyre on 25-25-1716POU [Catalytic activity/Vol]37 U/L7-52 [facility] HospitalAspartate aminotransferase [Enzymatic activity/volume] in Serum or PlasmaOrdered By: Bhupinder Mcintyre on 19-74-8487LHF [Catalytic activity/Vol]66 U/KBoym14-75KwyacqlfwSuburban Community Hospital & Brentwood HospitalCalcium [Mass/volume] in Serum or PlasmaOrdered By: Bhupinder Mcintyre on 94-98-0080Gxsplmn [Mass/Vol]9.8 mg/dL8.6-10.3FMercy Health – The Jewish HospitalCarbon dioxide, total [Moles/volume] in Serum or PlasmaOrdered By: Bhupinder Mcintyre on 23-46-4124ZJ7 [Moles/Vol]27.1 mmol/L21.0-31.0[facility] HospitalChloride [Moles/volume] in Serum or PlasmaOrdered By: Bhupinder Mcintyre on 64-90-6424Snebadjs [Moles/Vol]104 mmol/C53-898RwsemwgnhSuburban Community Hospital & Brentwood HospitalCholesterol [Mass/volume] in Serum or PlasmaOrdered By: Bhupinder Mcintyre on 02-06-9949Uwxpmxfxvum [Mass/Vol]152 mg/jD270-983UddhdwchySuburban Community Hospital & Brentwood HospitalComment on above:Chol less than 200 mg/dl low riskChol 201-239 mg/dl borderline riskChol 240 mg/dl and greater high riskCholesterol in LDL Calc [Mass/Vol]Ordered By: Bhupinder Mcintyre on 01-87-2928Ncoodiyeyun in LDL [Mass/Vol]49 mg/dL0-100[facility] HospitalComment on above:LDL ATP III CLASSIFICATIONLDL less than 100 mg/dL OptimalLDL 100-129 mg/dL Near or above knktntuQHW681-639 mg/dL Borderline highLDL 160-189 mg/dL HighLDL greater than 189 mg/dL Very highCholesterol in VLDL Calc [Mass/Vol]Ordered By: Bhupinder Mcintyre on 93-47-4101Fiffasidrma in VLDL [Mass/Vol]17 mg/dLSuburban Community Hospital & Brentwood HospitalCreatinine [Mass/volume] in Serum or PlasmaOrdered By: Bhupinder Mcintyre on 00-15-7385Kjdmwnusjc [Mass/Vol]1.14 mg/dL0.70-1.30[facility] HospitalGlucose [Mass/volume] in Serum or PlasmaOrdered By: Bhupinder Mcintyre on 60-78-8983Pjmxgus [Mass/Vol]83 mg/tC02-545 [facility] HospitalComment on above:ADA recommended reference rangeRandom Glucose Reference Range is dependent on time and content of last meal. Glucose of more than 200 mg/dL in a nonstressed, ambulatory subject supports the diagnosisof Diabetes Mellitus.Natriuretic peptide B [Mass/Vol] Ordered By: Bhupinder Mcintyre on 61-69-9041Plclgkodjrx peptide B (Bld) [Mass/Vol]347.0 pg/mLHigh5-100[facility] HospitalNo Panel InformationOrdered By: Bhupinder Mcintyre on 81-06-8825Kqkkwjdoo GFR (CKD-EPI)> 60.0 mL/MinSuburban Community Hospital & Brentwood HospitalPharmacy Creatinine Clearance (ChemN/[facility] HospitalPotassium [Moles/volume] in Serum or PlasmaOrdered By: Bhupinder Mcintyre on 22-21-0491Ihhjfacuv [Moles/Vol]4.2 mmol/L3.5-5.1FKettering Memorial Hospitalerum or plasma anion gap determinationOrdered By: Bhupinder Mcintyre on 07-19-2023 Anion gap [Moles/Vol]14.1 mmol/L6.0-15.0[facility]. [facility] Hospitalerum or plasma high density lipoprotein (HDL) cholesterol measurementOrdered By: Bhupinder Mcintyre on 01-10-6562Jlvpkyctfdi in HDL [Mass/Vol]86 mg/vC47-02VqhhdfdroSuburban Community Hospital & Brentwood HospitalComment on above:HDL CHOL ATP-III CLASSIFICATION Cardiovascular RiskHDL > or equal to 60 mg/dL LOWHDL < 40 mg/dL HIGHSerum or plasma total cholesterol/high density lipoprotein (HDL) cholesterol mass rat Ordered By: Bhupinder Mcintyre on 67-55-6580Dwdnlayixhl.total/Cholesterol in HDL [Mass ratio]1.8 {ratio}<5.0St. Francis Hospitalodium [Moles/volume] in Serum or PlasmaOrdered By: Bhupinder Mcintyre on 76-17-3347Mwmoxd [Moles/Vol]141 mmol/L 136-145[facility] HospitalTriglyceride [Mass/volume] in Serum or PlasmaOrdered By: Bhupinder Mcintyre on 87-01-8933Mqtuymyrtsvw [Mass/Vol]85 mg/dL0-149 [facility] HospitalComment on above:TRIG ATP III CLASSIFICATIONTRIG less than 150 mg/dL NormalTRIG 150-199 mg/dL Borderline highTRIG 200-500 mg/dL High TRIG greater than 500 mg/dL Very highStandard traceable to the Center for Disease Conrtrol and Prevention (CDC) test method. Urea nitrogen [Mass/volume] in Serum or PlasmaOrdered By: Bhupinder Mcintyre on 54-71-0707Ahwx nitrogen [Mass/Vol]22 mg/dL7-25[facility] Alanine aminotransferase [Enzymatic activity/volume] in Serum or PlasmaOrdered By: Opal Ga on 39-98-2228HGS [Catalytic activity/Vol]31 U/L7-52[facility] HospitalAlbumin [Mass/volume] in Serum or Plasma by Bromocresol green (BCG) dye binding methoOrdered By: Opal Ga on 12-49-2689Rwlqyst BCG dye [Mass/Vol]4.1 g/dL3.5-5.7FMercy Health – The Jewish HospitalAlkaline phosphatase [Enzymatic activity/volume] in Serum or PlasmaOrdered By: Opal Ga on 63-40-3154IHM [Catalytic activity/Vol]124 U/O63-623UybybyssqSuburban Community Hospital & Brentwood HospitalAspartate aminotransferase [Enzymatic activity/volume] in Serum or Plasma Ordered By: Opal Ga on 30-78-8503EUP [Catalytic activity/Vol]47 U/L13-39 [facility] HospitalBasophils Auto (Bld) [#/Vol]Ordered By: Opal Ga on 25-01-9105Kytpkstno (Bld) [#/Vol]0.0 10*3/uL0.0-0.2FMercy Health – The Jewish HospitalBasophils/100 WBC Auto (Bld)Ordered By: Opal Ga on 09-08-2022 Basophils/100 WBC (Bld)1.0 %.[facility] HospitalBilirubin.total [Mass/volume] in Serum or PlasmaOrdered By: Opal Ga on 38-75-3710Urmppddvg [Mass/Vol]0.7 mg/dL0.3-1.0[facility] HospitalCalcium [Mass/volume] in Serum or PlasmaOrdered By: Opal Ga on 22-70-5914Iryfhqy [Mass/Vol]9.5 mg/dL8.6-10.3FMercy Health – The Jewish HospitalCarbon dioxide, total [Moles/volume] in Serum or PlasmaOrdered By: Opal Ga on 71-31-6493UL3 [Moles/Vol]30.7 mmol/L21.0-31.0[facility] HospitalChloride [Moles/volume] in Serum or PlasmaOrdered By: Opal Ga on 65-03-4713Ijpbpypi [Moles/Vol]107 mmol/U65-855CkurhobrwSuburban Community Hospital & Brentwood HospitalCholesterol [Mass/volume] in Serum or PlasmaOrdered By: Opal Ga on 18-92-6194Rwgvdzindzv [Mass/Vol]124 mg/bU438-786HadfbidiwSuburban Community Hospital & Brentwood HospitalComment on above:Chol less than 200 mg/dl low riskChol 201-239 mg/dl borderline riskChol 240 mg/dl and greater high riskCholesterol in LDL Calc [Mass/Vol]Ordered By: Opal Ga on 44-33-6832Eduxxmpcgqn in LDL [Mass/Vol]44 mg/dL0-100[facility] HospitalComment on above:LDL ATP III CLASSIFICATIONLDL less than 100 mg/dL OptimalLDL 100-129 mg/dL Near or above rsnsewbUNF123-791 mg/dL Borderline highLDL 160-189 mg/dL HighLDL greater than 189 mg/dL Very highCholesterol in VLDL Calc [Mass/Vol]Ordered By: Opal Ga on 54-92-6975Cvlkdrustyk in VLDL [Mass/Vol]13 mg/dLSuburban Community Hospital & Brentwood HospitalCreatinine [Mass/volume] in Serum or PlasmaOrdered By: Opal Ga on 55-28-8910Btwbyotwav [Mass/Vol]1.18 mg/dL0.70-1.30[facility] HospitalEosinophils Auto (Bld) [#/Vol] Ordered By: Opal Ga on 85-39-5456Ropjrcmcgah (Bld) [#/Vol]0.8 10*3/uL0.0-0.45 [facility] HospitalEosinophils/100 WBC Auto (Bld)Ordered By: pOal Ga on 54-13-8093Zijgyamiemv/100 WBC (Bld)16.6 %.[facility] HospitalErythrocyte distribution width Auto (RBC) [Ratio]Ordered By: Opal Ga on 39-99-2919Woxijajclyv distribution width (RBC) [Ratio]14.9 %12.0-14.8[facility] HospitalGlobulin Calc (S) [Mass/Vol]Ordered By: Opal Ga on 60-00-2394Ejxwpzbq (S) [Mass/Vol]2.2 g/dLSuburban Community Hospital & [facility] Glucose [Mass/volume] in Serum or PlasmaOrdered By: Opal Ga on 09-08-2022 Glucose [Mass/Vol]83 mg/mT80-043EprpkngwwSuburban Community Hospital & Brentwood HospitalComment on above:ADA recommended reference rangeRandom Glucose Reference Range is dependent on time and content of last meal. Glucose of more than 200 mg/dL in a nonstressed, ambulatory subject supports the diagnosisof Diabetes Mellitus. Hematocrit Auto (Bld) [Volume fraction]Ordered By: Opal Ga on 09-08-2022 Hematocrit (Bld) [Volume fraction]37.1 %38.8-50.0[facility] HospitalHemoglobin [Mass/volume] in BloodOrdered By: Opal Ga on 09-08-2022 Hemoglobin (Bld) [Mass/Vol]12.5 g/dL13.0-17.0[facility] Leukocytes [#/volume] corrected for nucleated erythrocytes in Blood by Automated counOrdered By: Opal Ga on 18-63-0161JPD corrected for nucl RBC Auto (Bld) [#/Vol]4.7 10*3/uL4.1-10.5FMercy Health – The Jewish HospitalLymphocytes Auto (Bld) [#/Vol]Ordered By: Opal Ga on 79-52-0962Zgdiqdjnxtq (Bld) [#/Vol]1.3 10*3/uL1.00-4.8[facility] HospitalLymphocytes/100 WBC Auto (Bld) Ordered By: Opal Ga on 95-97-8997Ghdyzogjtvb/100 WBC (Bld)27.0 %.[facility] HospitalMCH Auto (RBC) [Entitic mass]Ordered By: Opal Ga on 11-90-5764FRG (RBC) [Entitic mass]33.5 pg27.5-35.2FMercy Health – The Jewish HospitalMCHC Auto (RBC) [Mass/Vol]Ordered By: Opal Ga on 21-24-2341RFHW (RBC) [Mass/Vol]33.6 g/dL32.5-35.6FMercy Health – The Jewish HospitalMCV Auto (RBC) [Entitic vol]Ordered By: Opal Ga on 96-98-5819JDX (RBC) [Entitic vol]99.7 fL 83.5-101[facility] HospitalMonocytes Auto (Bld) [#/Vol]Ordered By: Opal Ga on 56-47-4411Xbtwtmvtx (Bld) [#/Vol]0.3 10*3/uL0.0-0.8[facility] HospitalMonocytes/100 WBC Auto (Bld)Ordered By: Opal Ga on 12-02-9145Oomeryygx/100 WBC (Bld)7.2 %.[facility] Natriuretic peptide B [Mass/Vol]Ordered By: Bhupinder Mcintyre on 50-89-4811Sqdnefevraf peptide B (Bld) [Mass/Vol]123.0 pg/mL5-100[facility] Neutrophils Auto (Bld) [#/Vol]Ordered By: Opal Ga on 73-53-6438Zznhjjddmav (Bld) [#/Vol]2.2 10*3/uL1.8-7.7FMercy Health – The Jewish HospitalNeutrophils/100 WBC Auto (Bld)Ordered By: Opal Ga on 73-66-3777Zmdgmelaczf/100 WBC (Bld)48.2 %.[facility] HospitalNo Panel Informationon 09-08-2022 123.0\S\123.0above high axglhwiag2-412DL-Chlez [facility] [address] DO Work Phone: Comment on above:PERFORMED BY:[facility] [place], [place] [phone] MEDICAL DIRECTORJAYY SANTA M.D.No Panel InformationOrdered By: Opal Ga on 09-08-2022 Estimated GFR (CKD-EPI)> 60.0 mL/MinSuburban Community Hospital & Brentwood HospitalPharmacy Creatinine Clearance (ChemN/AFMercy Health – The Jewish HospitalNucleated erythrocytes [Presence] in Blood by Automated countOrdered By: Opal Ga on 74-79-9755Lzxqgxomy RBC Auto Ql (Bld)0.2 /100{WBC}0-0.5FMercy Health – The Jewish HospitalPlatelet mean volume Auto (Bld) [Entitic vol]Ordered By: Opal Ga on 69-13-8026Fzywmtec mean volume (Bld) [Entitic vol]8.8 fL6.6-10.1 [facility] HospitalPlatelets Auto (Bld) [#/Vol]Ordered By: Opal Ga on 61-67-6749Xhptdkurw (Bld) [#/Vol]155 10*3/iY984-965FjebmnfasSuburban Community Hospital & Brentwood HospitalPotassium [Moles/volume] in Serum or PlasmaOrdered By: Opal Ga on 89-18-9721Cjoyatppv [Moles/Vol]4.0 mmol/L3.5-5.1FMercy Health – The Jewish HospitalProstate specific Ag [Mass/volume] in Serum or PlasmaOrdered By: Opal Ga on 14-83-7510Sifrnxqs specific Ag [Mass/Vol]2.140 ng/mL0.000-4.000[facility] HospitalProtein [Mass/volume] in Serum or PlasmaOrdered By: Opal Ga on 25-45-6740Cyusyfu [Mass/Vol]6.3 g/dL6.4-8.9[facility] HospitalRBC Auto (Bld) [#/Vol]Ordered By: Opal Ga on 81-99-8482CNU (Bld) [#/Vol]3.73 10*6/uL3.90-5.60[facility]. Francis Hospitalerum or plasma albumin/globulin mass ratioOrdered By: Opal Ga on 09-08-2022 Albumin/Globulin [Mass ratio]1.9 {ratio}[facility]. Francis Hospitalerum or plasma anion gap determinationOrdered By: Opal Ga on 78-16-3980Kciqi gap [Moles/Vol]8.3 mmol/L6.0-15.0[facility]. [facility] Hospitalerum or plasma high density lipoprotein (HDL) cholesterol measurementOrdered By: Opal Ga on 28-09-2311Gdlxlomzkby in HDL [Mass/Vol]67 mg/vS48-97YfkntjynhSuburban Community Hospital & Brentwood HospitalComment on above:HDL CHOL ATP-III CLASSIFICATION Cardiovascular RiskHDL > or equal to 60 mg/dL LOWHDL < 40 mg/dL HIGHSerum or plasma total cholesterol/high density lipoprotein (HDL) cholesterol mass ratOrdered By: Opal Ga on 03-29-4133Gfspqwsbgjp.total/Cholesterol in HDL [Mass ratio]1.9 {ratio} <5.0St. Francis Hospitalodium [Moles/volume] in Serum or Plasma Ordered By: Opal Ga on 03-66-1911Cnndxl [Moles/Vol]142 mmol/X167-362FkdfeqlxcSuburban Community Hospital & Brentwood HospitalThyrotropin [Units/volume] in Serum or PlasmaOrdered By: Opal Ga on 28-09-4010PQF Qn0.46 m[IU]/L0.45-5.33[facility] HospitalThyroxine (T4) free [Mass/volume] in Serum or PlasmaOrdered By: Opal Ga on 64-13-6771Anir T4 [Mass/Vol]1.28 ng/dL0.61-1.12[facility] HospitalTriglyceride [Mass/volume] in Serum or PlasmaOrdered By: Opal Ga on 04-28-4223Rwhvfmglcdhj [Mass/Vol]66 mg/dL0-149[facility] Comment on above:TRIG ATP III CLASSIFICATIONTRIG less than 150 mg/dL NormalTRIG 150-199 mg/dL Borderline highTRIG 200-500 mg/dL High TRIG greater than 500 mg/dL Very highStandard traceable to the Center for Disease Conrtrol and Prevention (CDC) test method.Urea nitrogen [Mass/volume] in Serum or PlasmaOrdered By: Opal Ga on 68-28-3445Eltr nitrogen [Mass/Vol]22 mg/dL7[facility] HospitalWBC Auto (Bld) [#/Vol]Ordered By: Opal Ga on 74-78-1199VIS (Bld) [#/Vol]4.7 10*3/uL4.1-10.5FMercy Health – The Jewish HospitalOffice Visit (Cardiology)on 95-18-6521Cbzxko-up visitDiagnoses/Problems Assessed Heart failure, NYHA class 2 [...] of Cardiac catheterization History of Complete colonoscopy [facility] History of Epidural steroid injection [...] (more content not included)...NormalUH TouchworksTobacco Screening. on 41-34-8451Ixytvbz use status CPHSb) [facility] 250 DO Work Phone: US KIDNEYS BLADDERon 05-90-3533EH KIDNEYS BLADDEREXAM: US KIDNEYS BLADDER 05/13/2022 HISTORY: [...] Electronically authenticated by: RONALD ISRAEL Date: 2022-05-13 09:51Barn[facility] HospitalCardiovasc Arrhythmia Resultson 28-00-0404Mygywuhwow Arrhythmia ResultsReason For Visit Reason for Visit: Holter Monitor: TAVO is here for the application of a 24 hour Holter monitor. Ordering Physician: Enedelia Aguillon NP Diagnosis: afib NO equipment agreement signed. TAVO understands monitor is to be returned on: 03/16/2022 Monitor number [id number] applied. Holter monitor printed and placed on [...] Future Appointments Date/TimeProviderSpecialtySite 07/07/2022 09:20 Tavo Link, WUSazxzyxmux023 [facility] [address] 250 DO Signatures Electronically signed by : Marv Urena MD; Mar 19 2022 6:25PM EST (Author) Electronically signed by : Enedelia Gomez APRN-BEAN VINER; Mar 22 2022 9:37AM EST (Author)NormalUH TouchworksCreatinine and Glomerular filtration rate.predicted panel (S/P/Bld)Ordered By: Enedelia Gomez on 08-84-7085Pyxrqkuvol [Mass/Vol]1.28 mg/dL0.64-1.27[facility] HospitalEstimated glomerular filtration rate (GFR) non- AmericanOrdered By: Enedelia Gomez on 11-94-5792AUD/1.73 sq M.predicted among non-blacks MDRD (S/P/Bld) [Vol rate/Area]54 mL/MinSuburban Community Hospital & Brentwood HospitalNo Panel InformationOrdered By: Enedelia Gomez on 03-11-2022 Estimated GFR ()> 60 mL/MinSuburban Community Hospital & [facility] Hospital Comment on above:GFR estimated reference range: According to KDOQI guidelines, <60 ml/min/1.73m2 is sufficient todiagnose a patient with chronic kidney disease.Pharmacy Creatinine Clearance (ChemN/[facility] No Panel Informationon .1\S\10.7Rasheg6.0-15.0MP-[facility] 250 DO Work Phone: [phone]\S\9.3Bkuvpc5.2-10.2MP-[facility] 250 DO Work Phone: Comment on above:PERFORMED BY:[place] [address] [place] [place], [place] [phone] MEDICAL DIRECTORJAYY SANTA M.D.30.5\S\30.5above high .0-30.0MP-[facility] 250 DO Work Phone: [phone]\S\082Sjihtz44-180YP-Eyzdc [facility] 250 DO Work Phone: [phone]\S\3.4Ojrrbn1.5-5.1MP-[facility] 250 DO Work Phone: [phone]\S\727Phbnas201-114QC-Aifdc [facility] 250 DO Work Phone: > 60NormalMP-[facility] 250 DO Work Phone: Comment on above:GFR estimated reference range: According to KDOQI guidelines, <60 ml/min/1.73m2 is sufficient todiagnose a patient with chronic kidney disease.54\S\54NormalMP-[facility] 250 DO Work Phone: [phone]\S\1.28above high threshold0.64-1.27MP-[facility] 250 DO Work Phone: [phone]\S\65Rtrfbm8-32BV-Pygid [facility] 250 DO Work Phone: [phone]\S\14Bxlpqm88-376KZ-Uwbwj [facility] 250 DO Work Phone: Comment on above:Random Glucose Reference Range is dependent on time and content of last meal. Glucose of more than 200 mg/dL in a nonstressed, ambulatory subject supports the diagnosis of Diabetes Mellitus. ADA recommended reference rangeSerum or plasma anion gap determinationOrdered By: Enedelia Gomez on 79-32-2053Jhsoi gap [Moles/Vol]10.1 mmol/L6.0-15.0[facility]. [facility] Hospitalerum or plasma calcium measurement (mass/volume)Ordered By: Enedelia Gomez on 57-60-5224Ecaqfuj [Mass/Vol]9.9 mg/dL8.2-10.2FKettering Memorial Hospitalerum or plasma chloride measurement (moles/volume) Ordered By: Enedelia Gomez on 53-33-0384Hbgzaoee [Moles/Vol]100 mmol/L95-114 [facility] Hospitalerum or plasma glucose measurement (mass/volume)Ordered By: Enedelia Gomez on 33-65-9457Sfpndan [Mass/Vol]96 mg/dL 70-100[facility] Brentwood HospitalComment on above:ADA recommended reference rangeRandom Glucose Reference Range is dependent on time and content of last meal. Glucose of more than 200 mg/dL in a nonstressed, ambulatory subject supports the diagnosisof Diabetes Mellitus.Serum or plasma potassium measurement (moles/volume)Ordered By: Enedelia Gomez on 19-14-4018Kzwpxwmvn [Moles/Vol]3.6 mmol/L3.5-5.1FKettering Memorial Hospitalerum or plasma sodium measurement (moles/volume)Ordered By: Enedelia Gomez on 51-43-2014Xmhpde [Moles/Vol]137 mmol/E650-729KbhauqqroSt. Francis Hospitalerum or plasma total carbon dioxide measurement (moles/volume)Ordered By: Enedelia Gomez on 86-86-5252EJ8 [Moles/Vol]30.5 mmol/L22.0-30.0[facility] Serum or plasma urea nitrogen measurement (mass/volume)Ordered By: Enedelia Gomez on 57-72-9929Qedb nitrogen [Mass/Vol]17 mg/dL9-23[facility] HospitalOffice Visit (Cardiology)on 68-67-0206Lzexif-up visitDiagnoses/Problems Assessed Chronic atrial fibrillation (427.31) (I48.20) [...] in adult Healthy Weight Tips; Status:Complete; Done: 65Ccp0105 Patient Instructions Please bring all medicines, vitamins, [...] [place] July 2021. 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 He denies any palpitations or fast heartbeats. [...] of Cardiac catheterization History of Complete colonoscopy [facility] History of Epidural steroid injection [...] (more content not included)... NormalUH TouchworksTobacco Screening.on 58-82-1054Unhgi depression screening assessmentNoVal[facility] Center [facility] 250 DO Work Phone: Fall risk assessmentb) One or more [facility] in the [facility] 250 DO Work Phone: Tobacco use status CPHSb) [facility] 250 DO Work Phone: Basophils Auto (Bld) [#/Vol]Ordered By: Raji Ennis on 76-08-4181Htudnujjt (Bld) [#/Vol]0.1 10*3/uL0.0-0.2FMercy Health – The Jewish HospitalBasophils/100 WBC Auto (Bld)Ordered By: Raji Ennis on 01-16-2022 Basophils/100 WBC (Bld)1.0 %.[facility] HospitalCreatinine and Glomerular filtration rate.predicted panel (S/P/Bld)Ordered By: Raji Ennis on 00-69-4067Sketjcjhzv [Mass/Vol]1.56 mg/dL0.64-1.27[facility] HospitalEosinophils Auto (Bld) [#/Vol]Ordered By: Raji Ennis on 01-16-2022 Eosinophils (Bld) [#/Vol]0.4 10*3/uL0.0-0.45[facility] Eosinophils/100 WBC Auto (Bld)Ordered By: Raji Ennis on 01-16-2022 Eosinophils/100 WBC (Bld)5.6 %.[facility] HospitalErythrocyte distribution width Auto (RBC) [Ratio]Ordered By: Raji Ennis on 01-16-2022 Erythrocyte distribution width (RBC) [Ratio]15.3 %12.0-14.8[facility] HospitalEstimated glomerular filtration rate (GFR) non- Ordered By: Raji Ennis on 97-45-8653KCL/1.73 sq M.predicted among non-blacks MDRD (S/P/Bld) [Vol rate/Area]43 mL/MinSuburban Community Hospital & [facility] Hospital Hematocrit Auto (Bld) [Volume fraction]Ordered By: Raji Ennis on 01-16-2022 Hematocrit (Bld) [Volume fraction]35.4 %38.8-50.0[facility] HospitalHemoglobin [Mass/volume] in BloodOrdered By: Raji Ennis on 01-16-2022 Hemoglobin (Bld) [Mass/Vol]11.8 g/dL13.0-17.0[facility] Laboratory - Hematology and Cell countsOrdered By: Raji Ennis on 01-16-2022 Nucleated RBC/100 WBC (Bld) [Ratio]0.0 %0-0.5FMercy Health – The Jewish Hospital Leukocytes [#/volume] in Blood by Automated countOrdered By: Raji Ennis on 73-46-2397MTU (Bld) [#/Vol]6.5 10*3/uL4.5-11.0[facility] Lymphocytes Auto (Bld) [#/Vol]Ordered By: Raji Ennis on 57-32-2516Jxwuttwlxlf (Bld) [#/Vol]1.1 10*3/uL1.00-4.8[facility] HospitalLymphocytes/100 WBC Auto (Bld)Ordered By: Raji Ennis on 79-49-8293Ilrubotbdhg/100 WBC (Bld) 17.1 %.[facility] Auto (RBC) [Entitic mass]Ordered By: Raji Ennis on 67-15-9241JFJ (RBC) [Entitic mass]33.2 pg27.5-35.2FCoshocton Regional Medical Center Auto (RBC) [Mass/Vol]Ordered By: Raji Ennis on 08-98-5370JJGN (RBC) [Mass/Vol]33.3 g/dL32.5-35.6FMercy Health – The Jewish HospitalMCV Auto (RBC) [Entitic vol]Ordered By: Raji Raymon on 29-20-8323JII (RBC) [Entitic vol]100.0 fL83.5-101[facility] HospitalMonocytes Auto (Bld) [#/Vol]Ordered By: Raji Raymon on 56-42-0268Ibopfjlfz (Bld) [#/Vol] 0.8 10*3/uL0.0-0.8[facility] HospitalMonocytes/100 WBC Auto (Bld) Ordered By: Raji Raymon on 55-96-5307Tdjpiboyw/100 WBC (Bld)11.9 %.[facility] HospitalNeutrophils Auto (Bld) [#/Vol]Ordered By: Raji Raymon on 47-18-4185Jhrghakisgg (Bld) [#/Vol]4.2 10*3/uL1.8-7.7FMercy Health – The Jewish HospitalNeutrophils/100 WBC Auto (Bld)Ordered By: Raji Raymon on 01-16-2022 Neutrophils/100 WBC (Bld)64.4 %.[facility] HospitalNo Panel InformationOrdered By: Raji Raymon on 93-93-8506Qqoiatktb GFR ()52 mL/MinSuburban Community Hospital & Brentwood HospitalComment on above:GFR estimated reference range: According to KDOQI guidelines, <60 ml/min/1.73m2 is sufficient todiagnose a patient with chronic kidney disease.Pharmacy Creatinine Clearance (Chem39.79[facility] HospitalPlatelet mean volume Auto (Bld) [Entitic vol]Ordered By: Raji Raymon on 11-15-4426Tiylopai mean volume (Bld) [Entitic vol]9.1 fL6.6-10.1FMercy Health – The Jewish HospitalPlatelets Auto (Bld) [#/Vol]Ordered By: Raji Raymon on 08-40-3502Hjysxrihz (Bld) [#/Vol]195 10*3/rT276-180GzfsakqcnSuburban Community Hospital & Brentwood HospitalRBC Auto (Bld) [#/Vol]Ordered By: Raji Ennis on 02-60-1105KJZ (Bld) [#/Vol]3.54 10*6/uL3.90-5.60[facility]. [facility] Hospitalerum or plasma anion gap determinationOrdered By: Raji Ennis on 58-64-9593Aeutu gap [Moles/Vol]11.4 mmol/L6.0-15.0[facility]. [facility] Hospitalerum or plasma calcium measurement (mass/volume)Ordered By: Raji Raymon on 79-04-7901Yzwufmq [Mass/Vol]9.0 mg/dL8.2-10.2FKettering Memorial Hospitalerum or plasma chloride measurement (moles/volume)Ordered By: RajiStaufferam 81-44-4507Mdskulpc [Moles/Vol]95 mmol/N84-960RfgfrnxknSt. Francis Hospitalerum or plasma glucose measurement (mass/volume)Ordered By: Rjai Raymon 15-67-1829Wpgnplk [Mass/Vol]87 mg/zV80-818GxwlgpbntSuburban Community Hospital & Brentwood HospitalComment on above:ADA recommended reference rangeRandom Glucose Reference Range is dependent on time and content of last meal. Glucose of more than 200 mg/dL in a nonstressed, ambulatory subject supports the diagnosisof Diabetes Mellitus.Serum or plasma potassium measurement (moles/volume)Ordered By: Raji Ennis 79-46-8054Jumycuvzs [Moles/Vol]4.0 mmol/L3.5-5.1FKettering Memorial Hospitalerum or plasma sodium measurement (moles/volume)Ordered By: Raji Ennis 24-24-1425Ihulpr [Moles/Vol]132 mmol/V502-108OlqxejgpkSt. Francis Hospitalerum or plasma total carbon dioxide measurement (moles/volume) Ordered By: Raji Arringtonam 83-64-6138JQ0 [Moles/Vol]29.6 mmol/L22.0-30.0 [facility] [facility] Hospitalerum or plasma urea nitrogen measurement (mass/volume)Ordered By: Raji Ennis 22-96-7093Wtkz nitrogen [Mass/Vol]29 mg/dL9-23[facility] HospitalUrine culture routineOrdered By: Frankie Reynolds on 42-48-5886Restyyqt identified Cx Nom (U)No Growth 2 Days [facility] HospitalAutomated erythrocytes count in urine sediment (number/area)Ordered By: Frankie Reynolds on 89-12-8000LCR Auto (Urine sed) [#/Area]50-100 [HPF]0-4FMercy Health – The Jewish HospitalAutomated leukocytes count in urine sediment (number/area)Ordered By: Frankie Reynolds on 54-96-1107PPP Auto (Urine sed) [#/Area]5-9 [HPF]0-4FMercy Health – The Jewish HospitalBilirubin Test strip Ql (U)Ordered By: Frankie Reynolds on 14-29-2056Fkezggxcw Ql (U)Negative NegativeSuburban Community Hospital & Brentwood HospitalColor Auto (U)Ordered By: Frankie Reynolds on 60-67-7668Fxssd (U)YellowYellowSuburban Community Hospital & Brentwood HospitalKetones Auto test strip (U) [Mass/Vol]Ordered By: Frankie Reynolds on 02-72-0633Ryppqfj (U) [Mass/Vol]NegativeNegativeSuburban Community Hospital & Brentwood HospitalLaboratory - UrinalysisOrdered By: Frankie Reynolds on 29-99-9174Ywfeqpq casts LM Ql (Urine sed) 0-8 [LPF]0-8[facility] HospitalNitrite Test strip Ql (U)Ordered By: Frankie Reynolds on 61-48-6988Hqaoisc Ql (U)NegativeNegTrinity Health System Twin City Medical CenterProtein Auto test strip (U) [Mass/Vol]Ordered By: Frankie Reynolds on 86-59-8867Kkitjhe (U) [Mass/Vol]30 mg/dLNegativeSt. Francis Hospitalerum or plasma uric acid measurement (mass/volume)Ordered By: Frankie Reynolds on 09-71-1943Qdknp [Mass/Vol]4.7 mg/dL2.6-7.2FKettering Memorial Hospitalerum or plasma vancomycin measurement (mass/volume)Ordered By: Raji Ennis on 53-71-1571Vriaszsnkh [Mass/Vol]9.7 ug/mL5.0-20.0[facility] Brentwood HospitalComment on above:Last dose: -Specific gravity Auto test strip (U) [Rel density]Ordered By: Frankie Reynolds on 63-30-1617Hektowao gravity (U) [Rel density]1.0121.001-1.030St. Francis Hospitalquamous epithelial cells detection in urine sediment by light microscopyOrdered By: Frankie Reynolds on 63-49-8824Ttgerglwie cells.squamous LM Ql (Urine sed)0-1 [HPF]0-2FMercy Health – The Jewish HospitalUrine bacteria detection by automated methodOrdered By: Frankie Reynolds on 92-81-1777Lvivskpl Auto Ql (U)None seenNone SeenSuburban Community Hospital & Brentwood HospitalUrine clarity by refractometry automatedOrdered By: Frankie Reynolds on 40-48-2297Pflqbxa Refractometry automated (U)ClearClear [facility] HospitalUrine culture routineOrdered By: Frankie Reynolds on 38-81-8059Tfiygaxg identified Cx Nom (U)No Growth 2 DaysSuburban Community Hospital & Brentwood HospitalUrine glucose measurement by automated test strip (mass/volume) Ordered By: Frankie Reynolds on 23-08-3533Ycsniih Auto test strip (U) [Mass/Vol] Normal mg/dLNoCincinnati Children's Hospital Medical CenterUrine hemoglobin detection by automated test stripOrdered By: Frankie Reynolds on 28-71-8113Uhysnmckkc Auto test strip Ql (U)3+NegativeSuburban Community Hospital & Brentwood HospitalUrine leukocyte esterase detection by automated test stripOrdered By: Frankie Reynolds on 01-13-2022 Leukocyte esterase Auto test strip Ql (U)2+NegativeSuburban Community Hospital & Brentwood HospitalUrobilinogen Auto test strip (U) [Mass/Vol]Ordered By: Frankie Reynolds on 87-26-9243Xbxgmcudggqw (U) [Mass/Vol]Normal mg/dLNoCincinnati Children's Hospital Medical CenterpH Auto test strip (U)Ordered By: Frankie Reynolds on 77-14-3894lS (U)5.5 [pH]5.0-9.0[facility] HospitalBacterial blood culture Ordered By: Raji Ennis on 98-16-6181Cctqtcuz identified Cx Nom (Bld)NO GROWTH 5 DAYSSuburban Community Hospital & Brentwood HospitalC reactive protein [Mass/volume] in Serum or PlasmaOrdered By: Raji Ennis on 44-82-5635QTW [Mass/Vol]8.4 mg/dL0.0-1.0 [facility] HospitalAlbumin [Mass/volume] in Serum or PlasmaOrdered By: Vikas Mane on 52-44-2848Gljlaid [Mass/Vol]2.9 g/dL2.9-4.4FMercy Health – The Jewish HospitalIgA [Mass/volume] in Serum or PlasmaOrdered By: Vikas Mane on 50-02-8094UfK [Mass/Vol]171 mg/xQ87-238SwhmqggjsSuburban Community Hospital & Brentwood HospitalIgG [Mass/volume] in Serum or PlasmaOrdered By: Vikas Mane on 01-11-2022 IgG [Mass/Vol]816 mg/nY747-2412YaqlozommSuburban Community Hospital & Brentwood HospitalIgM [Mass/volume] in Serum or PlasmaOrdered By: Vikas Mane on 74-08-9817BhM [Mass/Vol]105 mg/vX36-842RdyowrvfpSuburban Community Hospital & Brentwood HospitalComment on above: Performed at: [facility] [id number] Director: Patrick Ortiz PhD, Phone: [phone] Panel InformationOrdered By: Vikas Mane on 21-73-9701Cdvzaak Electrophoresis M-SpikeNot observed g/dLNot ObservedSuburban Community Hospital & Brentwood HospitalProtein Electrophoresis NoteSee comment.[facility] HospitalComment on above:Protein electrophoresis scan will follow via computer,mail, or park manager delivery.Performed at: [facility] [id number] Director: Patrick Ortiz PhD, Phone: [phone] ImmunofixationSee comment.[facility] HospitalComment on above:No monoclonality detected.Protein [Mass/volume] in Serum or PlasmaOrdered By: Vikas Mane on 17-50-1648Ekfecad [Mass/Vol]5.3 g/dL6.0-8.5FKettering Memorial Hospitalerum globulin measurement (mass/volume)Ordered By: Vikas Mane on 87-26-7993Ncxtspfy (S) [Mass/Vol]2.4 g/dL2.2-3.9St. [facility] Hospitalerum or plasma albumin/globulin mass ratioOrdered By: Vikas Mane on 96-33-9283Sqxohxw/Globulin [Mass ratio]1.2 {ratio}0.7-1.7FKettering Memorial Hospitalerum or plasma alpha 1 globulin measurement by electrophoresis (mass/volume)Ordered By: Vikas Mane on 69-38-2861Ilmbt 1 globulin Elph [Mass/Vol]0.4 g/dL0.0-0.4FKettering Memorial Hospitalerum or plasma alpha 2 globulin measurement by electrophoresis (mass/volume)Ordered By: Vikas Mane on 24-46-8857Hygnj 2 globulin Elph [Mass/Vol]0.7 g/dL0.4-1.0[facility]. [facility] Hospitalerum or plasma beta globulin measurement by electrophoresis (mass/volume)Ordered By: Vikas Mane on 17-51-7911Oflt globulin Elph [Mass/Vol] 0.6 g/dL0.7-1.3FKettering Memorial Hospitalerum or plasma gamma globulin measurement by electrophoresis (mass/volume)Ordered By: Vikas Mane on 73-61-0943Msaqb globulin Elph [Mass/Vol]0.8 g/dL0.4-1.8[facility] HospitalFolate [Mass/volume] in Serum or PlasmaOrdered By: Dharmesh Zavala on 17-90-9781Viuukn [Mass/Vol]8.8 ng/mL>5.9[facility]wood HospitalComment on above:Folate reference range: >5.9 ng/mlThe WHO technical consultation on folate and vitamin z44tudxgdzkjkpw has determined that folate concentrations lessthan 4 ng/ml are considered deficient.Glucose mean value [Mass/volume] in Blood Estimated from glycated hemoglobinOrdered By: Dharmesh Zavala on 52-41-7449Uhjnwmu glucose Estimated from glycated hemoglobin (Bld) [Mass/Vol]114 mg/dLSuburban Community Hospital & Brentwood HospitalHemoglobin A1c percentage Ordered By: Dharmesh Zavala on 73-43-8006IpL5w (Bld) [Mass fraction]5.6 % 4.3-5.6FMercy Health – The Jewish HospitalComment on above:Increased risk for diabetes: 5.7 - 6.4diabetes: >6.4glycemic control for adults with diabetes: &l t;7.0Iron [Mass/volume] in Serum or PlasmaOrdered By: Dharmesh Zavala on 51-71-5380Wakm [Mass/Vol]13 ug/yF67-781NotsjfcvySuburban Community Hospital & [facility] Hospital Laboratory - Chemistry and Chemistry - challengeOrdered By: Dharmesh Zavala on 66-29-9347Xozhdvbqv (Vitamin B12) [Mass/Vol]458 pg/xC040-695QmrmcyqpjSuburban Community Hospital & Brentwood HospitalMagnesium [Mass/Vol]1.9 mg/dL1.6-2.6FMercy Health – The Jewish HospitalNatriuretic peptide B (Bld) [Mass/Vol]679.0 pg/mL5-100[facility] HospitalTS DL <= 0.005 mIU/L QnOrdered By: Dharmesh Zavala on 08-33-7038BYT Qn3.99 m[IU]/L0.45-5.33[facility] Troponin I.cardiac [Mass/volume] in Serum or Plasma by High sensitivity method Ordered By: Dharmesh Zavala on 90-85-7628Mauwmuwo I.cardiac High sensitivity method [Mass/Vol]110 pg/mL0-20[facility] Comment on above:Results calledat 0808 on 01/10/22Activated partial thromboplastin time (aPTT) in platelet poor plasma by coagulation aOrdered By: Frankie Paiz on 46-10-9174vIEM Coag (PPP) [Time]39.1 s25.1-36.5FMercy Health – The Jewish HospitalAutomated erythrocytes count in urine sediment (number/area)Ordered By: Frankie Paiz on 46-77-2263HMT Auto (Urine sed) [#/Area]0-1 [HPF]0-4FMercy Health – The Jewish HospitalAutomated leukocytes count in urine sediment (number/area)Ordered By: Frankie Paiz on 11-05-6689WXM Auto (Urine sed) [#/Area]5-9 [HPF]0-4FMercy Health – The Jewish HospitalBasophils Auto (Bld) [#/Vol]Ordered By: Frankie Paiz on 41-73-3073Juhkkwlyg (Bld) [#/Vol]0.1 10*3/uL0.0-0.2FMercy Health – The Jewish HospitalBasophils/100 WBC Auto (Bld) Ordered By: Frankie Paiz on 64-98-3710Vljncqenm/100 WBC (Bld)1.0 %.[facility] HospitalBilirubin Test strip Ql (U)Ordered By: Frankie Paiz on 55-74-8027Zjiunohas Ql (U)NegativeNegTrinity Health System [facility] COVID-19 Positive/NegativeOrdered By: Frankie Paiz on 40-14-4452FIZY-CoV-2 (COVID-19) N gene SMITHA+probe Ql (Resp)NegativeNegTrinity Health System Twin City Medical CenterComment on above:Testing for SARS-CoV-2 by RT-PCRThis test was developed and its performance characteristics determined by [employer] ([employer]) and validated at the [facility]. This test has not been FDA [...] sooner. COVID-19 SOFIAOrdered By: Frankie Paiz on 90-13-0327BLGI-CoV+SARS-CoV-2 (COVID-19) Ag IA.rapid Ql (Resp)NegativeNegTrinity Health System Twin City Medical CenterComment on above:This is a duplicate Veronica SARS Antigen (MADHAVI) result to be used for statistical tracking purpose only.Color Auto (U)Ordered By: Frankie Paiz on 29-47-9560Quiyp (U)YellowYellowSuburban [facility] & [facility] Creatine kinase [Enzymatic activity/volume] in Serum or PlasmaOrdered By: Frankie Paiz on 87-43-5383BV [Catalytic activity/Vol]231 U/E43-803NvbpemiesSuburban Community Hospital & Brentwood HospitalCreatinine and Glomerular filtration rate.predicted panel (S/P/Bld)Ordered By: Frankie Paiz on 94-88-3542Gpdnemmwxd [Mass/Vol]1.62 mg/dL 0.64-1.27[facility] HospitalEosinophils Auto (Bld) [#/Vol]Ordered By: Frankie Paiz on 46-22-7864Zpdzubpvlqh (Bld) [#/Vol]0.0 10*3/uL0.0-0.45 [facility] HospitalEosinophils/100 WBC Auto (Bld)Ordered By: Frankie Paiz on 96-22-9151Abvzsgweoyz/100 WBC (Bld)0.1 %.[facility] HospitalErythrocyte distribution width Auto (RBC) [Ratio]Ordered By: Frankie Paiz on 44-78-9651Gqnhuuzdxxd distribution width (RBC) [Ratio]15.9 % 12.0-14.8[facility] HospitalEstimated glomerular filtration rate (GFR) non- AmericanOrdered By: Frankie Paiz on 02-85-6943JDT/1.73 sq M.predicted among non-blacks MDRD (S/P/Bld) [Vol rate/Area]41 mL/MinSuburban Community Hospital & Brentwood HospitalHematocrit Auto (Bld) [Volume fraction]Ordered By: Frankie Paiz on 51-95-5248Xynwgykcmn (Bld) [Volume fraction]36.5 %38.8-50.0 [facility] HospitalHemoglobin [Mass/volume] in BloodOrdered By: Frankie Paiz on 49-23-2824Gkpqvjstao (Bld) [Mass/Vol]12.1 g/dL13.0-17.0 [facility] HospitalKetones Auto test strip (U) [Mass/Vol]Ordered By: Frankie Paiz on 41-81-7742Zaehkts (U) [Mass/Vol]TraceNegativeSuburban Community Hospital & Brentwood HospitalLaboratory - Chemistry and Chemistry - challengeOrdered By: Frankie Paiz on 24-15-2723Bwfvwpecvpu peptide B (Bld) [Mass/Vol]1810.0 pg/mL5-100[facility] HospitalLaboratory - CoagulationOrdered By: Frankie Paiz on 90-25-5094FO Coag (PPP) [Time]28.4 s9.0-12.9[facility] HospitalLaboratory - Hematology and Cell countsOrdered By: Frankie Paiz on 43-93-3185Aoujdcrdf RBC/100 WBC (Bld) [Ratio]0.1 %0-0.5FMercy Health – The Jewish HospitalLaboratory - UrinalysisOrdered By: Frankie Paiz on 01-09-2022 Hyaline casts LM Ql (Urine sed)0-8 [LPF]0-8[facility] Leukocytes [#/volume] in Blood by Automated countOrdered By: Frankie Paiz on 40-48-4327WEK (Bld) [#/Vol]6.0 10*3/uL4.5-11.0[facility] Lymphocytes Auto (Bld) [#/Vol]Ordered By: Frankie Paiz on 01-09-2022 Lymphocytes (Bld) [#/Vol]0.8 10*3/uL1.00-4.8[facility] Lymphocytes/100 WBC Auto (Bld)Ordered By: Frankie Paiz on 01-09-2022 Lymphocytes/100 WBC (Bld)13.5 %.[facility] Auto (RBC) [Entitic mass]Ordered By: Frankie Paiz on 73-66-8951UFW (RBC) [Entitic mass] 33.7 pg27.5-35.2FMercy Health – The Jewish HospitalMCHC Auto (RBC) [Mass/Vol] Ordered By: Frankie Paiz on 55-25-7072CIFA (RBC) [Mass/Vol]33.2 g/dL32.5-35.6 [facility] HospitalMCV Auto (RBC) [Entitic vol]Ordered By: Frankie Paiz on 18-30-2137ILQ (RBC) [Entitic vol]101.5 fL83.5-101[facility] HospitalMonocytes Auto (Bld) [#/Vol]Ordered By: Frankie Paiz on 02-93-7632Ivhebtnrr (Bld) [#/Vol]0.9 10*3/uL0.0-0.8[facility] HospitalMonocytes/100 WBC Auto (Bld)Ordered By: Frankie Piaz on 01-09-2022 Monocytes/100 WBC (Bld)14.2 %.[facility] HospitalNeutrophils Auto (Bld) [#/Vol]Ordered By: Frankie Paiz on 13-90-2891Zqikuizqxis (Bld) [#/Vol] 4.3 10*3/uL1.8-7.7FMercy Health – The Jewish HospitalNeutrophils/100 WBC Auto (Bld)Ordered By: Frankie Paiz on 88-67-0761Rhbltmzjzgc/100 WBC (Bld)71.2 %. [facility] HospitalNitrite Test strip Ql (U)Ordered By: Frankie Paiz on 81-10-1949Jegewuu Ql (U)NegativeNegativeSuburban Community Hospital & Brentwood HospitalNo Panel InformationOrdered By: Frankie Paiz on 29-43-2214EYEV Antigen (LFIA)[facility] HospitalEstimated GFR ()50 mL/Min [facility] HospitalComment on above:GFR estimated reference range: According to KDOQI guidelines, <60 ml/min/1.73m2 is sufficient todiagnose a patient with chronic kidney disease.Pharmacy Creatinine Clearance (Chem39.44 [facility] HospitalARS Antigen (LFIA)[facility] HospitalPlatelet mean volume Auto (Bld) [Entitic vol]Ordered By: Frankie Paiz on 04-52-1267Pejceuit mean volume (Bld) [Entitic vol]8.3 fL6.6-10.1FMercy Health – The Jewish HospitalPlatelet poor plasma international normalized ratio (INR) by coagulation assay (relatOrdered By: Frankie Paiz on 62-16-9992QTX Coag (PPP) [Relative time]2.5 {INR}[facility] HospitalComment on above: INR Therapeutic Range A) [...] Auto (Bld) [#/Vol]Ordered By: Frankie Paiz on 12-30-1107Ulvetvdvd (Bld) [#/Vol]162 10*3/oS594-221XmatjuopySuburban Community Hospital & Brentwood HospitalProtein Auto test strip (U) [Mass/Vol]Ordered By: Frankie Paiz on 97-47-2319Cacnsuo (U) [Mass/Vol]Trace mg/dLNegativeSuburban Community Hospital & Brentwood HospitalRBC Auto (Bld) [#/Vol]Ordered By: Frankie Paiz on 52-41-0023LXJ (Bld) [#/Vol]3.59 10*6/uL 3.90-5.60St. Francis Hospitalerum or plasma anion gap determinationOrdered By: Frankie Paiz on 58-04-8714Avwto gap [Moles/Vol]14.9 mmol/L6.0-15.0St. Francis Hospitalerum or plasma calcium measurement (mass/volume)Ordered By: Frankie Paiz on 16-64-5854Yfivcii [Mass/Vol]9.2 mg/dL8.2-10.2FKettering Memorial Hospitalerum or plasma chloride measurement (moles/volume)Ordered By: Frankie Paiz on 01-09-2022 Chloride [Moles/Vol]100 mmol/H94-947WlcmqhsqtSt. Francis Hospitalerum or plasma creatine kinase MB (CKMB)/total creatine kinase (CK) ratio by calcula Ordered By: Frankie Paiz on 70-29-4131IK.MB Calc [Catalytic fraction]2.3 % 0.00-2.50St. Francis Hospitalerum or plasma creatine kinase MB measurement (mass/volume)Ordered By: Frankie Paiz on 34-61-4352PB.MB [Mass/Vol]5.4 ng/mL0.6-6.3FKettering Memorial Hospitalerum or plasma glucose measurement (mass/volume)Ordered By: Frankie Paiz on 19-90-6809Nmohacb [Mass/Vol]99 mg/jN30-040PkjzquyqdSuburban Community Hospital & Brentwood HospitalComment on above:ADA recommended reference rangeRandom Glucose Reference Range is dependent on time and content of last meal. Glucose of more than 200 mg/dL in a nonstressed, ambulatory subject supports the diagnosisof Diabetes Mellitus.Serum or plasma potassium measurement (moles/volume)Ordered By: Frankie Paiz on 01-09-2022 Potassium [Moles/Vol]4.1 mmol/L3.5-5.1FKettering Memorial Hospitalerum or plasma sodium measurement (moles/volume)Ordered By: Frankie Paiz on 01-09-2022 Sodium [Moles/Vol]136 mmol/Z394-210TnummwkfcSt. Francis Hospitalerum or plasma total carbon dioxide measurement (moles/volume)Ordered By: Frankie Paiz on 57-11-5457ZA0 [Moles/Vol]25.2 mmol/L22.0-30.0St. [facility] Hospitalerum or plasma urea nitrogen measurement (mass/volume)Ordered By: Frankie Paiz on 99-43-9706Guru nitrogen [Mass/Vol]21 mg/dL9-23St. Francis Hospitalpecific gravity Auto test strip (U) [Rel density]Ordered By: Frankie Paiz on 36-43-3160Vialyyif gravity (U) [Rel density]1.0181.001-1.030 [facility] Hospitalquamous epithelial cells detection in urine sediment by light microscopyOrdered By: Frankie Paiz on 48-55-0453Riepjezfgt cells.squamous LM Ql (Urine sed)0-1 [HPF]0-2FMercy Health – The Jewish Hospital Troponin I.cardiac [Mass/volume] in Serum or Plasma by High sensitivity method Ordered By: Frankie Paiz on 01-02-1909Gkswujap I.cardiac High sensitivity method [Mass/Vol]101 pg/mL0-20[facility] HospitalComment on above: Results calledat 1208 on 01/09/22Urine bacteria detection by automated method Ordered By: Frankie Paiz on 12-14-0866Mgittxbk Auto Ql (U)None seenNone Seen [facility] HospitalUrine clarity by refractometry automatedOrdered By: Frankie Paiz on 72-83-1718Xcugmdp Refractometry automated (U)CloudyClear [facility] HospitalUrine glucose measurement by automated test strip (mass/volume)Ordered By: Frankie Paiz on 87-62-3843Eqeatmb Auto test strip (U) [Mass/Vol]Normal mg/dLNoCincinnati Children's Hospital Medical CenterUrine hemoglobin detection by automated test stripOrdered By: Frankie Paiz on 95-63-8540Weogreogct Auto test strip Ql (U)NegativeNegativeSuburban Community Hospital & Brentwood HospitalUrine leukocyte esterase detection by automated test stripOrdered By: Frankie Paiz on 52-95-9964Hgleuxirk esterase Auto test strip Ql (U)2+ NegativeSuburban Community Hospital & Brentwood HospitalUrobilinogen Auto test strip (U) [Mass/Vol]Ordered By: Frankie Paiz on 09-77-9645Uqgzfwzmjnry (U) [Mass/Vol] Normal mg/dLNormalSuburban Community Hospital & Brentwood HospitalYeast detection in urine sediment by light microscopyOrdered By: Frankie Paiz on 36-69-1963Veipc LM Ql (Urine sed)None seen [HPF]None SeenSuburban Community Hospital & Brentwood HospitalpH Auto test strip (U)Ordered By: Frankie Paiz on 86-33-2284oR (U)5.5 [pH]5.0-9.0[facility] HospitalBody fluid albumin measurement (mass/volume)Ordered By: Opal Ga on 56-14-9189Zsylcww (Body fld) [Mass/Vol]3.5 g/dL3.2-5.5FMercy Health – The Jewish HospitalCreatinine and Glomerular filtration rate.predicted panel (S/P/Bld)Ordered By: Opal Ga on 05-88-0933Oamkfuxjmd [Mass/Vol]1.29 mg/dL 0.64-1.27[facility] HospitalEstimated glomerular filtration rate (GFR) non- AmericanOrdered By: Opal Ga on 78-30-5020OXA/1.73 sq M.predicted among non-blacks MDRD (S/P/Bld) [Vol rate/Area]54 mL/MinSuburban Community Hospital & Brentwood HospitalGlobulin Calc (S) [Mass/Vol]Ordered By: Opal Ga on 62-65-2080Atmgofro (S) [Mass/Vol]2.2 g/dLSuburban Community Hospital & Brentwood HospitalNo Panel InformationOrdered By: Opal Ga on 92-86-4465Mxudbfnki GFR ()> 60 mL/MinSuburban Community Hospital & Brentwood HospitalComment on above:GFR estimated reference range: According to KDOQI guidelines, <60 ml/min/1.73m2 is sufficient todiagnose a patient with chronic kidney disease.Pharmacy Creatinine Clearance (ChemN/[facility] HospitalProtein [Mass/volume] in Serum or PlasmaOrdered By: Opal Ga on 31-71-3682Fotyztt [Mass/Vol]5.7 g/dL 6.1-7.9[facility]. [facility] Hospitalerum or plasma alanine aminotransferase measurement without P-5'-P (enzymatic activiOrdered By: Opal Ga on 77-72-3204GPM No additional P-5'-P [Catalytic activity/Vol]19 U/E78-90NmjkectofSt. Francis Hospitalerum or plasma albumin/globulin mass ratioOrdered By: Opal Ga on 61-64-4630Aqdzrgi/Globulin [Mass ratio]1.6 {ratio}[facility]. [facility] Hospitalerum or plasma alkaline phosphatase measurement (enzymatic activity/volume)Ordered By: Opal Ga on 41-70-0494RLJ [Catalytic activity/Vol]92 U/G78-40TevetzgoaSt. Francis Hospitalerum or plasma anion gap determinationOrdered By: Opal Ga on 51-69-0466Rtloe gap [Moles/Vol]15.3 mmol/L6.0-15.0[facility]. [facility] Hospitalerum or plasma aspartate aminotransferase measurement (enzymatic activity/volume)Ordered By: Opal Ga on 26-03-2087BDU [Catalytic activity/Vol]27 U/H61-28FrclmvzugSt. Francis Hospitalerum or plasma calcium measurement (mass/volume)Ordered By: Opal Ga on 37-55-4570Arnykbu [Mass/Vol]9.6 mg/dL8.2-10.2FMercy Health – The Jewish Hospital Serum or plasma chloride measurement (moles/volume)Ordered By: Opal Ga on 40-76-0842Jeosthvp [Moles/Vol]103 mmol/D67-525NmvbshahkSuburban Community Hospital & [facility] Serum or plasma glucose measurement (mass/volume)Ordered By: Opal Ga on 67-43-0669Usithiz [Mass/Vol]84 mg/iH07-885DonutiaihSuburban Community Hospital & [facility] Comment on above:ADA recommended reference rangeRandom Glucose Reference Range is dependent on time and content of last meal. Glucose of more than 200 mg/dL in a nonstressed, ambulatory subject supports the diagnosisof Diabetes Mellitus. Serum or plasma potassium measurement (moles/volume)Ordered By: Opal Ga on 34-35-2535Fvhactwhs [Moles/Vol]4.5 mmol/L3.5-5.1FKettering Memorial Hospitalerum or plasma sodium measurement (moles/volume)Ordered By: Opal Ga on 07-84-9570Ihtayh [Moles/Vol]139 mmol/G299-265KfmmqbcxySub[facility] Serum or plasma total bilirubin measurement (mass/volume)Ordered By: Opal Ga on 06-71-3264Gffokpiwo [Mass/Vol]1.2 mg/dL0.3-1.2FKettering Memorial Hospitalerum or plasma total carbon dioxide measurement (moles/volume)Ordered By: Opal Ga on 48-60-6678RD1 [Moles/Vol]25.2 mmol/L22.0-30.0[facility]. [facility] Hospitalerum or plasma urea nitrogen measurement (mass/volume)Ordered By: Opal Ga on 88-76-4062Xybh nitrogen [Mass/Vol]16 mg/dL9-[facility] HospitalTS DL <= 0.005 mIU/L QnOrdered By: Opal Ga on 15-18-2102MLH Qn 1.83 m[IU]/L0.45-5.33[facility] HospitalThyroxine (T4) free [Mass/volume] in Serum or PlasmaOrdered By: Opal Ga on 79-61-3835Tmqp T4 [Mass/Vol]1.09 ng/dL0.61-1.12[facility] HospitalOffice Visit (Cardiology)on 59-03-9082Asmjff-up visitDiagnoses/Problems Assessed Non-ischemic cardiomyopathy (425.4) (I42.8) Chronic [...] Former smoker Tobacco Use Screening; Status:Complete; Done: [id number] Patient Instructions By signing my name below, [...] of Cardiac catheterization History of Complete colonoscopy [facility] History of Hip replacement History [...] com (more content not included)...NormalUH TouchworksTobacco Screening.on 05-83-3804Swidl depression screening assessmentNoValley Medical Center Adzuna DO Work Phone: Fall risk assessmentb) One or more falls in the last yearValley [facility] Center Adzuna DO Work Phone: Tobacco use status CPHSb) NoMLegacy Health [facility] [place] [facility] DO Work Phone: Tobacco Screening.on 12-08-5567Dwzr risk assessmentb) One or more falls in the last yearVal[facility] [facility] DO Work Phone: Tobacco use status CPHSb) NoMLegacy Health [facility] [place] [facility] DO Work Phone: Vital Signs Date TimeVital SignValuePerforming BvwvgykcjZtbbxnbt82-96-1513 14:46-0400Heart rate95 /minOpal Ga DO Work Phone: [facility]10-14-2025 14:46-0400 Respiratory rate20 /minOpal Ga DO Work Phone: [phone]10-14-2025 12:00-0400 Body xsthyojgqzi31.8 [degF]Opal Ga DO Work Phone: [phone]10-14-2025 12:00-0400 Diastolic blood lbqyubmm29 mm[Hg]Opal Ga DO Work Phone: [address] [place], [place] 3864410-14-2025 12:00-0400 SaO2% (BldA) [Mass fraction]94 %Opal Ga DO Work Phone: [facility]10-14-2025 12:00-0400 Systolic blood vlhfuzfu755 mm[Hg]Opalamadou Ga DO Work Phone: [facility]10-14-2025 05:59-0400 Body ixscjn49 kgOpal Ga DO Work Phone: [facility]10-09-2025 13:08-0400 Body yvfeka633.64 cmOpal Ga DO Work Phone: [facility]10-08-2025 16:05-0400 Diastolic blood ocvtbctg36 mm[Hg]PHYSICIAN NO [facility]10-08-2025 16:05-0400Heart rate97 /minPHYSICIAN [facility]10-08-2025 16:05-0400Respiratory rate16 /minPHYSICIAN [facility]10-08-2025 16:05-5282DkT6% (BldA) [Mass fraction]100 %PHYSICIAN NO [facility]10-08-2025 16:05-0400Systolic blood zxkxykup097 mm[Hg]PHYSICIAN NO [facility]10-08-2025 12:10-0400Body yodnwh419.64 cmPHYSICIAN [facility]10-08-2025 12:10-0400Body .2 [degF]PHYSICIAN [facility]10-08-2025 12:10-0400 Body rxbudc13.4 kgPHYSICIAN [facility]09-30-2025 08:56-0400Body .64 cmPHYSICIAN [facility]09-30-2025 08:56-0400Body bgojql08 kgPHYSICIAN [facility]08-06-2025 08:00-0400Body bogayrcumzg26.6 [degF]Melvi Hindsb SIZING MACHINE TENDER Work Phone: [address] [place], [place] 2387608-06-2025 08:00-0400 Diastolic blood lddwjeyx93 mm[Hg]Melvi Kiera SIZING MACHINE TENDER Work Phone: [facility]08-06-2025 08:00-0400 Heart rate67 /minAmanda Kiera SIZING MACHINE TENDER Work Phone: [facility]08-06-2025 08:00-0400 Respiratory rate18 /minAmanda Kiera SIZING MACHINE TENDER Work Phone: [facility]08-06-2025 08:00-0400 SaO2% (BldA) [Mass fraction]93 %Melvi Kiera SIZING MACHINE TENDER Work Phone: [facility]08-06-2025 08:00-0400 Systolic blood okchadgw42 mm[Hg]Melvi Kiera SIZING MACHINE TENDER Work Phone: [address] [place], [place] 2387608-06-2025 06:11-0400 Body iqmgzb35.4 kgAmanda Kiera SIZING MACHINE TENDER Work Phone: [phone] [place], [place] 3277908-03-2025 03:35-0400 Inhaled oxygen flow rate2 L/minAmanda Kiera SIZING MACHINE TENDER Work Phone: [phone]08-02-2025 14:03-0400 Body ycqyvh663.48 cmAmanda Kiera SIZING MACHINE TENDER Work Phone: [phone]08-01-2025 22:55-0400 Diastolic blood ypftroyr57 mm[Hg]Melvi Kiera SIZING MACHINE TENDER Work Phone: [phone]08-01-2025 22:55-0400 Heart yfhp803 /minAmanda Kiera SIZING MACHINE TENDER Work Phone: [phone] [place], [place] 2387608-01-2025 22:55-0400 Respiratory rate20 /minAmanda Kiera SIZING MACHINE TENDER Work Phone: [address] [place], [place] 2387608-01-2025 22:55-0400 SaO2% (BldA) [Mass fraction]98 %Melvi Kiera SIZING MACHINE TENDER Work Phone: [phone] [place], [place] 3277908-01-2025 22:55-0400 Systolic blood htdcwhxe787 mm[Hg]Melvi Kiera SIZING MACHINE TENDER Work Phone: [phone] [place], [place] 3277908-01-2025 17:56-0400 Body mqryle983.48 cmAmanda Kiera SIZING MACHINE TENDER Work Phone: [phone] [place], [place] 3277908-01-2025 17:56-0400 Body dbgagherfeh88.7 [degF]Melvi Kiera SIZING MACHINE TENDER Work Phone: [phone] [place], [place] 3277908-01-2025 17:56-0400 Body rukbvo92.1 kgAmanda Kiera SIZING MACHINE TENDER Work Phone: [phone]07-31-2025 14:00-0400 Body taclhz211.48 cmAmanda Kiera SIZING MACHINE TENDER Work Phone: [facility]07-31-2025 14:00-0400 Body cowpfoutzzb99.2 [degF]Melvi Kiera SIZING MACHINE TENDER Work Phone: [facility]07-31-2025 14:00-0400 Diastolic blood pawvtaxt13 mm[Hg]Melvi Kiera SIZING MACHINE TENDER Work Phone: [facility]07-31-2025 14:00-0400 Heart rate43 /minAmanda Kiera SIZING MACHINE TENDER Work Phone: [facility]07-31-2025 14:00-0400 Systolic blood otpmgvft447 mm[Hg]Melvi Kiera SIZING MACHINE TENDER Work Phone: [phone]05-13-2025 11:27-0400 Body meompgddhnv87.7 [degF]Melvi Kiera SIZING MACHINE TENDER Work Phone: [facility]05-13-2025 11:27-0400 Diastolic blood axqcxaup84 mm[Hg]Melvi Kiera SIZING MACHINE TENDER Work Phone: [facility]05-13-2025 11:27-0400 Heart rate83 /minAmanda Kiera SIZING MACHINE TENDER Work Phone: [facility]05-13-2025 11:27-0400 Respiratory rate18 /minAmanda Kiera SIZING MACHINE TENDER Work Phone: [phone]05-13-2025 11:27-0400 SaO2% (BldA) [Mass fraction]99 %Melvi Kiera SIZING MACHINE TENDER Work Phone: [facility]05-13-2025 11:27-0400 Systolic blood hdgjymdf091 mm[Hg]Melvi Kiera SIZING MACHINE TENDER Work Phone: [facility]05-13-2025 06:00-0400 Body .1 kgAmanda Kiera SIZING MACHINE TENDER Work Phone: [facility]05-09-2025 16:26-0400 Body .64 cmAmanda Kiera SIZING MACHINE TENDER Work Phone: [phone] [place], [place] 3277905-09-2025 04:00-0400 Inhaled oxygen flow rate2 L/minAmanda Kiera SIZING MACHINE TENDER Work Phone: [phone] [place], [place] 3277905-08-2025 19:00-0400 Diastolic blood sugylohn91 mm[Hg]Melvi Kiera SIZING MACHINE TENDER Work Phone: [address] [place], [place] 2387605-08-2025 19:00-0400 Heart rkxg646 /minAmanda Kiera SIZING MACHINE TENDER Work Phone: [phone] [place], [place] 3277905-08-2025 19:00-0400 Inhaled oxygen flow rate2 L/minAmanda Kiera SIZING MACHINE TENDER Work Phone: [address] [place], [place] 2387605-08-2025 19:00-0400 Respiratory rate24 /minAmanda Kiera SIZING MACHINE TENDER Work Phone: [address] [place], [place] 2387605-08-2025 19:00-0400 SaO2% (BldA) [Mass fraction]95 %Melvi Kiera SIZING MACHINE TENDER Work Phone: [phone] [place], [place] 3277905-08-2025 19:00-0400 Systolic blood omubucxh092 mm[Hg]Melvi Kiera SIZING MACHINE TENDER Work Phone: [address] [place], [place] 2387605-08-2025 14:38-0400 Body wmyhxs129.64 cmAmanda Kiera SIZING MACHINE TENDER Work Phone: [phone] [place], [place] 3277905-08-2025 14:38-0400 Body jvpctuvpqdd27.2 [degF]Melvi Kiera SIZING MACHINE TENDER Work Phone: [address] [place], [place] 2387605-08-2025 14:38-0400 Body solnkp347.2 kgAmanda Kiera SIZING MACHINE TENDER Work Phone: [phone] [place], [place] 3277902-20-2025 12:09-0500 Body dtqgehfmpjd25.1 [degF]Partha Gabriel DPM Work Phone: [facility]02-20-2025 12:09-0500Diastolic blood gleuqtfv53 mm[Hg]Partha Smartert DPM Work Phone: [facility]02-20-2025 12:09-0500Heart rate78 /min Partha Harvey DPM Work Phone: [facility]02-20-2025 12:09-0500Respiratory rate 18 /minVidyakhurram Gabriel DPM Work Phone: [facility]02-20-2025 12:09-5119CyS3% (BldA) [Mass fraction]98 %Partha Gabriel DPM Work Phone: [facility]02-20-2025 12:09-0500Systolic blood eehddujh506 mm[Hg]Partha Smartert DPM Work Phone: [facility]01-09-2025 16:16-0500Body temperature 97.9 [degF]Opal Tjs DO Work Phone: [facility]01-09-2025 16:16-0500 Diastolic blood giiyvmij35 mm[Hg]Opal Sparkss DO Work Phone: [facility]01-09-2025 16:16-0500 Heart rate79 /minEdmondamadou Kuns DO Work Phone: [facility]01-09-2025 16:16-0500 Respiratory rate18 /minEdmondamadou Kuns DO Work Phone: [facility]01-09-2025 16:16-0500 SaO2% (BldA) [Mass fraction]94 %Opal Sparkss DO Work Phone: [facility]01-09-2025 16:16-0500 Systolic blood mm[Hg]Opla Sparkss DO Work Phone: [facility]01-09-2025 04:08-0500 Body .7 kgOpal Ga DO Work Phone: [phone] [place], [place] 5948601-07-2025 12:58-0500 Body urqofw977.64 cmOpal Ga DO Work Phone: [phone] [place], [place] 5948601-04-2025 13:32-0500 Diastolic blood lkonlepo69 mm[Hg]Opal Ga DO Work Phone: [phone] [place], [place] 5948601-04-2025 13:32-0500 Heart rate58 /minOpal Ga DO Work Phone: 9(995)8-[address] [place], [place] 5948601-04-2025 13:32-0500 SaO2% (BldA) [Mass fraction]96 %Opal Ga DO Work Phone: 0(787)[address]01-04-2025 13:32-0500 Systolic blood rholfkxx578 mm[Hg]Opal Ga DO Work Phone: 1(628)[address]01-04-2025 11:19-0500 Respiratory rate18 /minOpal Ga DO Work Phone: 0(758)9-[address] [place], [place] 5948601-04-2025 09:52-0500 Body mxnher557.64 cmOpal Ga DO Work Phone: 3(817)[address]01-04-2025 09:52-0500 Body mcswmludzjo63.6 [degF]Opal Ga DO Work Phone: 9(923)7-[address] [place], [place] 5948601-04-2025 09:52-0500 Body yiuwyi26.6 kgOpal Ga DO Work Phone: 2(298)1-[address] [place], [place] 5948612-23-2024 10:46-0500 Body djfvygzewxe39.01 [degF]Randi Burris MD Work Phone: [facility]12-23-2024 10:46-0500Diastolic blood aedrvzlr85 mm[Hg]Randi Burris MD Work Phone: [address] [place], [place] 7282612-23-2024 10:46-0500Heart rate95 /Joseph Burris MD Work Phone: [facility]12-23-2024 10:46-0500 Respiratory rate18 /Joseph Burris MD Work Phone: [facility]12-23-2024 10:46-8783YgF2% (BldA) [Mass fraction]96 %Randi Burris MD Work Phone: [facility]12-23-2024 10:46-0500Systolic blood vlasknnw918 mm[Hg]Randi Burris MD Work Phone: [facility]12-17-2024 07:45-0500Body .6 cmSmitali Burris MD Work Phone: [facility]12-17-2024 07:45-0500Body mass index (BMI) [Ratio]30.7 kg/p2QdcjjbRandi Burris MD Work Phone: [facility]12-17-2024 07:45-0500Body wcaqmw76.27 kgRandi Burris MD Work Phone: [facility]12-12-2024 15:20-0500Body .6 cmTavo Mcintyre DO Work Phone: [facility]12-12-2024 15:20-0500 Body mass index (BMI) [Ratio]30.83 kg/u4IrsdgeoTavo Mcintyre DO Work Phone: [facility]12-12-2024 15:20-0500 Body dnauxf11.64 kgWisalvatore Mcintyre DO Work Phone: [facility]12-12-2024 15:20-0500 Diastolic blood joqlprfv32 mm[Hg]Tavo Mcintyre DO Work Phone: [facility]12-12-2024 15:20-0500 Heart deqk040 /Neel Mcintyre DO Work Phone: [facility]12-12-2024 15:20-0500 Systolic blood mm[Hg]Tavo Mcintyre DO Work Phone: [facility]12-09-2024 09:35-0500 Body owcnxn223.64 cmOpal Ga DO Work Phone: [facility]12-09-2024 09:35-0500 Body mass index (BMI) [Ratio]30.7 kg/o9WasrtOpal Sparkss DO Work Phone: 1(899)9-[address] [place], [place] 5948612-09-2024 09:35-0500 Body ieoixe71.18 kgOpal Ga DO Work Phone: 1(377)[address]12-09-2024 09:35-0500 Diastolic blood ybhqoril67 mm[Hg]Opal Sparksmyranda DO Work Phone: [phone]12-09-2024 09:35-0500 Heart rate51 /Ann Ga DO Work Phone: 1(612)4-[address] [place], [place] 3864412-09-2024 09:35-0500 Respiratory rate18 /minOpal Ga DO Work Phone: [phone]38[facility]12-09-2024 09:35-0500 SaO2% (BldA) [Mass fraction]95 %Opal Ga DO Work Phone: 1(671)1-[address] [place], [place] 5948612-09-2024 09:35-0500 Systolic blood mm[Hg]Opalamadou Sparkss DO Work Phone: 1(774)7-[address] [place], [place] 5948610-22-2024 12:47-0400 Body .64 [facility]10-22-2024 12:47-0400Body mass index (BMI) [Ratio]28.8 kg/e8OwtpatuofSuburban [facility] Hospital & [facility]10-22-2024 12:47-0400Body exvwxr23.19 kgSub[facility]10-22-2024 12:47-0400Diastolic blood mccufpop92 mm[Hg][facility] 12-27-2023 12:47-0400Heart rate78 /[facility] 12-27-2023 12:47-0400Respiratory rate16 /[facility] 12-27-2023 12:47-4307KxE9% (BldA) [Mass fraction]99 %[facility]10-22-2024 12:47-0400Systolic blood mm[Hg][facility]07-17-2024 10:00-0400Body wwxbyi307.64 cmDO Opal Ga Work Phone: [facility]07-17-2024 10:00-0400 Body mass index (BMI) [Ratio]29.8 kg/m2DO Opal Ga Work Phone: [facility]07-17-2024 10:00-0400 Body .91 kgDO Opal Ga Work Phone: [facility]07-17-2024 10:00-0400 Diastolic blood sknauwmt10 mm[Hg]DO Opal Ga Work Phone: [facility]07-17-2024 10:00-0400 Heart rate72 /MariAmrik Ga Work Phone: [facility]07-17-2024 10:00-0400 Respiratory rate16 /Annelise Ga Work Phone: [facility]07-17-2024 10:00-0400 Systolic blood hfpdekbe222 mm[Hg]DO Opal Ga Work Phone: [facility]05-08-2024 10:30-0400 Diastolic blood ocubuoda71 mm[Hg]Tavo Mcintyre DO Work Phone: [facility]05-08-2024 10:30-0400 Systolic blood dmwcwcfi326 mm[Hg]Tavo Mcintyre DO Work Phone: [facility]05-08-2024 09:57-0400 Body uyphvy540.6 cmTavo Mcintyre DO Work Phone: [facility]05-08-2024 09:57-0400 Body mass index (BMI) [Ratio]29.8 kg/r5QcqslviTavo Carodon DO Work Phone: [facility]05-08-2024 09:57-0400 Body hquzmd09.73 kgWisalvatore Carodon DO Work Phone: [facility]05-08-2024 09:57-0400 Heart rate60 /minWisalvatore Mcintyre DO Work Phone: [facility]01-12-2024 09:15-0500 Body tuqsxd523.64 cmOpal Ga Other [employer] Other 01-12-2024 09:15-0500Body mass index (BMI) [Ratio]29.7 kg/k2PtdgcOpal Ga Other [employer] Other 01-12-2024 09:15-0500Body hgwalk16.46 kgEdmondamadou Tjmyranda Other [employer] Other 01-12-2024 09:15-0500Diastolic blood mm[Hg] Opal Ga Other [employer] Other 01-12-2024 09:15-0500Respiratory rate16 /minOpal Ga Other [employer] Other 01-12-2024 09:15-6862JnX4% (BldA) [Mass fraction]97 % Opal Ga Other [employer] Other 01-12-2024 09:15-0500Systolic blood qslucfzl952 mm[Hg] Opal Ga Other [employer] Other 07-12-2023 09:15-0400Body .64 cmOpal Ga Other [facility] [employer] Other 07-12-2023 09:15-0400Body mass index (BMI) [Ratio] 28.11 kg/x8HtennOpal Ga Other [facility] 07-12-2023 09:15-0400Body kcinfm72.02 kgOpal Ga Other [facility] 07-12-2023 09:15-0400Diastolic blood mm[Hg] Opal Ga Other [facility] Other 07-12-2023 09:15-0400Respiratory rate16 /minOpal Ga Other [facility] 07-12-2023 09:15-4397FgW6% (BldA) [Mass fraction]96 % Opal Ga Other [facility] [employer] Other 07-12-2023 09:15-0400Systolic blood uglrrsbh172 mm[Hg] Opal Ga Other [employer] Other 05-03-2023 09:36-0400Body .64 cmOpal Ga Work Phone: 1(198) [phone]-ApkohSt. [facility] 250 [facility] Work Phone: 1(187) 729-138805-03-2023 09:36-0400Body mass index (BMI) [Ratio] 28.89 kg/b7VbuikOpal Ga Work Phone: mp109-8177MF-Wgeao [facility] 250 DO Work Phone: 1(176) 297-264005-03-2023 09:36-0400Body surface area Derived from formula1.91 m0LcpfmOpal Ga Work Phone: mp204-0780ZJ-Apnbd [facility] 250 DO Work Phone: 1(252) 505-456505-03-2023 09:36-0400Body .19 kgEdmondamadou Ga Work Phone: 1(593) [phone]-Wpvzz [facility] 250 DO Work Phone: 1(149) 279-720605-03-2023 09:36-0400Diastolic blood lqruwsdb56 mm[Hg] Opal Ga Work Phone: 1(356) [phone]-Eyjty [facility] 250 DO Work Phone: 1(145) 756-580805-03-2023 09:36-0400Heart rate76 /minBryamadou aG Work Phone: 1(582) [phone]-Tmggy [facility] 250 DO Work Phone: 1(799) [phone] 09:36-0400Systolic blood mm[Hg] Opal Ga Work Phone: 1(865) [phone]-Gxyrm [place] [facility] 250 DO Work Phone: 1(643) 333-918404-03-2023 10:15-0400Body .64 cmOpal Tjmyranda Other [facility] Other 04-03-2023 10:15-0400Body mass index (BMI) [Ratio]29.7 kg/b4IjbgoOpal Ga Other [facility] Other 04-03-2023 10:15-0400Body vqanoo76.46 kgOpal Ga Other [employer] Other 04-03-2023 10:15-0400Diastolic blood wzscrfpe35 mm[Hg] Opal Sparksmyranda Other [facility] Other 04-03-2023 10:15-0400Respiratory rate16 /minOpal Daily Other [facility] Other 04-03-2023 10:15-5643BuQ0% (BldA) [Mass fraction]96 % Opal Sparksmyranda Other [facility] Other 04-03-2023 10:15-0400Systolic blood zsaxuxyc607 mm[Hg] Opal Tjmyranda Other [facility] [employer] Other 01-04-2023 14:47-0500Body .64 cmOpal Ga Work Phone: 1(601) [phone]-Azhne [place] [facility] 250 DO Work Phone: 1(456) 912-121501-04-2023 14:47-0500Body mass index (BMI) [Ratio] 30.18 kg/d6VcytbOpal Ga Work Phone: 1(271) [phone]-Wrlil [place] [facility] [place] 250 DO Work Phone: 1(179) 196-808701-04-2023 14:47-0500Body surface area Derived from formula1.94 t6ZqjcdOpal Ga Work Phone: 1(511) [phone]-Ffpgv [place] [facility] [place] [address] DO Work Phone: 1(293) 781-984601-04-2023 14:47-0500Body zfqjta58.82 kgEdmondamadou Ga Work Phone: 1(233) [phone]-Tteba [place] [facility] [place] 250 DO Work Phone: 1(265) 551-444501-04-2023 14:47-0500Diastolic blood nzxtqbij44 mm[Hg] Opal P Kuns Work Phone: mp787-7030XK-Hknkl [place] [facility] 250 DO Work Phone: 1(760) 675-952401-04-2023 14:47-0500Heart rate72 /minOpal Sparkss Work Phone: mp822-0795MC-Gazmu [place] [address] [place] [address] DO Work Phone: 1(456) 276-780301-04-2023 14:47-0500Systolic blood mm[Hg] Opal Ga Work Phone: mp832-0702ZT-Xklpz [place] [facility] 250 DO Work Phone: 1(566) [phone] 13:30-0500Body gkazjk409.24 cmOpal Ga Other [employer] Other 01-03-2023 13:30-0500Body mass index (BMI) [Ratio] 42.82 kg/a4VapqfOpal Ga Other [employer] Other 01-03-2023 13:30-0500Body mwrlym71.64 kgOpal Ga Other [employer] Other 01-03-2023 13:30-0500Diastolic blood mm[Hg] Opal Ga Other [employer] Other 01-03-2023 13:30-0500Respiratory rate16 /minOpal Ga Other [employer] Other 01-03-2023 13:30-5027YrU9% (BldA) [Mass fraction]96 % Opal Ga Other [employer] Other 01-03-2023 13:30-0500Systolic blood yxyqfzbv866 mm[Hg] Opal Ga Other [employer] Other 12-06-2022 15:45-0500Body ahgppf222.24 cmOpal Sparksmyranda Other [employer] Other 12-06-2022 15:45-0500Body mass index (BMI) [Ratio] 44.92 kg/k2HatulOpal Ga Other [employer] Other 12-06-2022 15:45-0500Body .9 kgEdmondamadou Ga Other [employer] Other 12-06-2022 15:45-0500Diastolic blood jahrkzvp81 mm[Hg] Opal Ga Other [employer] Other 12-06-2022 15:45-0500Respiratory rate16 /minEdmondamadou Ga Other [employer] Other 12-06-2022 15:45-2351RhV9% (BldA) [Mass fraction]98 % Opal Ga Other [employer] Other 12-06-2022 15:45-0500Systolic blood ayydmzkh972 mm[Hg] Opal Ga Other [employer] Other 11-12-2022 11:37-0500Body nwamlnwfyii02.1 [degF]DO Opal Ga Work Phone: [facility]11-12-2022 11:37-0500 Diastolic blood cfbtkxoj45 mm[Hg]DO Opal Ga Work Phone: [facility]11-12-2022 11:37-0500 Heart rate79 /minDO Opal Ga Work Phone: [facility]11-12-2022 11:37-0500 Respiratory rate16 /Annelise Ga Work Phone: [facility]11-12-2022 11:37-0500 SaO2% (BldA) [Mass fraction]97 %DO Opal Ga Work Phone: [facility]11-12-2022 11:37-0500 Systolic blood moparsah045 mm[Hg]DO Opal Ga Work Phone: [facility]11-12-2022 04:10-0500 Body othojw80.5 kgDO Opal Ga Work Phone: 1(501)059-[address] [place], [place] 5948611-09-2022 16:00-0500 Inhaled oxygen flow rate1 L/Annelise Ga Work Phone: [address] [place], [place] 3864411-07-2022 13:55-0500 Body qjvuih809.64 cmDO Opal Ga Work Phone: [facility]11-05-2022 14:00-0400 Diastolic blood zbkoiybl86 mm[Hg]DO Opal Ga Work Phone: [facility]11-05-2022 14:00-0400 Heart rate67 /Annelise Ga Work Phone: [facility]11-05-2022 14:00-0400 Inhaled oxygen flow rate3 L/Annelise Ga Work Phone: [facility]11-05-2022 14:00-0400 Respiratory rate19 /Annelise Ga Work Phone: [facility]11-05-2022 14:00-0400 SaO2% (BldA) [Mass fraction]99 %DO Opal Ga Work Phone: [facility]11-05-2022 14:00-0400 Systolic blood ygygyfwu782 mm[Hg]DO Opal Ga Work Phone: [facility]11-05-2022 09:41-0400 Body sjstsdwjhgo89.2 [degF]DO Opal Ga Work Phone: [facility]11-05-2022 09:38-0400 Body .64 cmDO Opal Ga Work Phone: [facility]11-05-2022 09:38-0400 Body kgDO Opal Ga Work Phone: [facility]11-03-2022 13:45-0400 Body zqaoxd503.24 cmOpal Ga Other [employer] Other 11-03-2022 13:45-0400Body mass index (BMI) [Ratio] 48.42 kg/x3Iqmai Tjmyranda Other [employer] Other 11-03-2022 13:45-0400Body modeni12.98 kgOpal Ga Other [employer] Other 11-03-2022 13:45-0400Diastolic blood lbbadpst10 mm[Hg] Opal Ga Other [employer] Other 11-03-2022 13:45-0400Respiratory rate16 /minOpal Tjmyranda Other [employer] Other 11-03-2022 13:45-5498LrV9% (BldA) [Mass fraction]94 % Opal Ga Other [employer] Other 11-03-2022 13:45-0400Systolic blood zetdihwg456 mm[Hg] Opal Ga Other [facility] Other 08-08-2022 09:00-0400Body heightEdmondamadou Tjmyranda Other [employer] Other 08-08-2022 09:00-0400Body mass index (BMI) [Ratio] 32.83 kg/o7KjejoOpal Ga Other [employer] Other 08-08-2022 09:00-0400Body tqvrys31.26 kgOpal Ga Other [employer] Other 08-08-2022 09:00-0400Diastolic blood mm[Hg] Opal Ga Other [employer] Other 08-08-2022 09:00-0400Respiratory rate16 /minOpal Ga Other [employer] Other 08-08-2022 09:00-2521HtK6% (BldA) [Mass fraction]95 % Opal Ga Other [employer] Other 08-08-2022 09:00-0400Systolic blood gmmtsowl819 mm[Hg] Opal Ga Other [employer] Other 07-08-2022 10:00-0400Body heightEdmondamadou Tjmyranda Other [employer] Other 07-08-2022 10:00-0400Diastolic blood idvxmfsf68 mm[Hg] Opal Ga Other [employer] Other 07-08-2022 10:00-0400Respiratory rate16 /minOpal Ga Other [employer] Other 07-08-2022 10:00-7230McT2% (BldA) [Mass fraction]96 % Opal Ga Other [facility] Other 07-08-2022 10:00-0400Systolic blood epcqlulz731 mm[Hg] Opal Ga Other [facility] [employer] Other 06-27-2022 12:00-0400Body heightOpal Ga Other [facility] Other 06-27-2022 12:00-0400Diastolic blood zrdphkac28 mm[Hg] Opal Ga Other [facility] [employer] Other 06-27-2022 12:00-0400Systolic blood syuwrqbk601 mm[Hg] Opal Ga Other [facility] [employer] Other 05-31-2022 14:17-0400Body tgojbv716.64 cmOpal Sparksmyranda Work Phone: 1(199) [phone]-Nyizz [place] [facility] 250 DO Work Phone: 1(515) 977-845805-31-2022 14:17-0400Body mass index (BMI) [Ratio] 33.09 kg/o1YwhhcOpal Sparkss Work Phone: mp761-2107BL-Pbspo [place] [facility] 250 DO Work Phone: 1(347) 758-919905-31-2022 14:17-0400Body surface area Derived from formula2.02 c9AuaxsOpal Sparkss Work Phone: mp180-1533VX-Dsejz [place] [facility] 250 DO Work Phone: 1(353) [phone] 14:17-0400Body .99 kgOpal Sparksmyranda Work Phone: mp323-5123MW-Ufvrr [place] [facility] 250 DO Work Phone: 1(567) 535-962205-31-2022 14:17-0400Diastolic blood mm[Hg] pOal Ga Work Phone: mp692-3302SI-Haxrx [place] [facility] 250 DO Work Phone: 1(902) 781-461905-31-2022 14:17-0400Heart rate54 /minOpal Sparkss Work Phone: mp049-2903JJ-Ppaqh [place] [facility] 250 DO Work Phone: 1(736) 544-398805-31-2022 14:17-0400Systolic blood mm[Hg] Opal Ga Work Phone: mp569-9276IK-Oiwbs [place] [facility] 250 DO Work Phone: 1(819) 130-470311-15-2021 09:30-0500Body heightOpal Ga Other [employer] Other 11-15-2021 09:30-0500Body mass index (BMI) [Ratio] 33.67 kg/l5JguunOpal Ga Other [employer] Other 11-15-2021 09:30-0500Body jugfdk82.62 kgOpal Ga Other [employer] Other 11-15-2021 09:30-0500Diastolic blood mfwyjqrs68 mm[Hg] Opal Ga Other [employer] Other 11-15-2021 09:30-0500Respiratory rate16 /minOpal Ga Other [employer] Other 11-15-2021 09:30-3415PwW5% (BldA) [Mass fraction]96 % Opal Tjmyranda Other [facility] [address] [employer] Other 11-15-2021 09:30-0500Systolic blood slphakrz376 mm[Hg] Opal Ga Other [facility] [employer] Other 11-01-2021 15:22-0400Body fnachw075.64 cmOpal Myers Daily Work Phone: 1(115) [phone]-Bhhdc [facility] 250 DO Work Phone: 1(102) 662-489911-01-2021 15:22-0400Body mass index (BMI) [Ratio] 33.25 kg/c6QpvoeOpal Ga Work Phone: 1(561) [phone]-Netxy [facility] 250 DO Work Phone: 1(539) 280-493711-01-2021 15:22-0400Body surface area Derived from formula2.03 b6Ohzcf Louis Ga Work Phone: 1(313) [phone]-Uouyt [facility] 250 DO Work Phone: 1(158) 923-536611-01-2021 15:22-0400Body kcttke15.44 kgOpal Myesr Daily Work Phone: 1(853) [phone]-Deeox [facility] 250 DO Work Phone: 1(655) 882-958411-01-2021 15:22-0400Diastolic blood ltyfvspt19 mm[Hg] Opal Ga Work Phone: 1(720) [phone]-Hrpjg [facility] 250 DO Work Phone: 1(113) 426-207311-01-2021 15:22-0400Heart rate56 /minOpal Ga Work Phone: 1(746) [phone]-Kznus [facility] 250 DO Work Phone: 1(665) 788-814311-01-2021 15:22-0400Systolic blood iiousmlj167 mm[Hg] Opal P Kuns Work Phone: 1(286) [phone]-Tqpel [facility] 250 DO Work Phone: Encounters Encounter DateEncounter TypeCare ProviderFacilityStart: 92-22-7547Zqngm Massouh MD-[facility] Work Phone: Start: 12-30-2024 End: 33-22-4054lzonuygehoGnnwv Daily DO Work Phone: [facility]: 12-30-2024 End: 12-95-1440Ldbu Vinton M DO-[facility]: 12-27-2024 End: 63-78-3429ackvuwovxmFznwr Kuns DO Work Phone: -[facility]: 12-27-2024 End: 14-37-7933Nxjtfuyd ReferredMelissa Vidya Marker DO-[facility]: 72-37-6566Djj-patient / Non-visit(Maki) Cristy FATIMA-[facility] Work Phone: Start: 12-27-2024 End: 08-77-6562Erbsvek Jane Marker DO-[facility]: 12-12-2024 End: 63-27-2661Qrzlwlhgac and management of inpatientFrederbronson Mccartney MD-4 [facility] Work Phone: Start: 12-12-2024 End: 40-60-6795Gduri Prasad MD-4 [facility] Work Phone: Start: 12-04-2024 End: 22-95-4192Mowoqfs encounter procedureElenandrés Montoya [employer]ING [employer]ACHINE [employer]ENDER-[facility] [place] Work Phone: Start: 12-04-2024 End: 51-83-7284CsielKeely Montoya SIZING MACHINE TENDER-[facility] [place] Work Phone: Start: 12-04-2024 End: 71-69-3316hpexcksrmtGRYJDCIVL NO [facility]ILYFire[facility] Work Phone: Start: 11-29-2024 End: 31-31-4004Ssyceyj encounter procedureKeely Montoya [facility] Work Phone: Start: 11-29-2024 End: 84-52-0185RnapgKeely Montoya [facility] Work Phone: Start: 11-29-2024 End: 97-78-0346giodpwobzsSRVRFHMEE NO [facility] Work Phone: Start: 11-06-2024 End: 96-34-2479wwnepqskweYxlix Tjs DO Work Phone: [facility] Work Phone: Start: 11-06-2024 End: 68-59-1924Gnxhiam encounter procedureKeely Montoay [facility] Work Phone: start: 11-06-2024 End: 97-15-6893[facility]mc[facility] Work Phone: start: 10-31-2024 End: 87-00-6440ZjdeJovany Stovall MD-CT [facility] [place] Work Phone: Start: 10-31-2024 End: 41-57-2501gnyaxqxpreNhpoi Kuns DO Work Phone: [facility] Work Phone: Start: 10-31-2024 End: 95-70-5935Qgxzesr encounter procedureJovany Stovall MD-CT [facility] [place] Work Phone: Start: 10-07-2024 End: 30-56-6395Ckianbfons and management of inpatientAmanda M Kiera SIZING MACHINE TENDER Work Phone: [facility] Work Phone: Start: 10-07-2024 End: 76-23-1119Xfilfeb R. Frings DO-3 [facility] Work Phone: Start: 23-02-1665Tpj-patient / Non-visitDafrederic Stovall [facility]DC[facility] Work Phone: start: 74-61-9263WmqoJovany Stovall MDCape [facility] Work Phone: start: 12-87-2039Xce-patient / Non-visitMickari Reynolds [facility]DC[facility] Work Phone: Start: 89-99-8998EcsizifFrankie Reynolds MDC[facility] Work Phone: Start: 46-79-0550Yyw-patient / Non-visitDafrederic Stovall MDCape [facility] Work Phone: start: 58-33-5414cutadodzqyr encounterMelvi Fink Kiera SIZING MACHINE TENDER Work Phone: [facility] Work Phone: Start: 69-04-2827Aueaolz R. Estuardongs DO-3 [place] [facility] Work Phone: Start: 10-04-2024 End: 77-99-9605idrrfgtrxpSfwfid M Kiera SIZING MACHINE TENDER Work Phone: [facility] Work Phone: Start: 10-04-2024 End: 62-59-9633Ptkdljv encounter procedureMickari Reynolds MDCape [facility] Work Phone: Start: 10-04-2024 End: 43-59-6633HezhacfFrankie Reynolds MDCape [facility] Work Phone: Start: 09-24-2024 End: 74-16-5360Xdeilew encounter procedureW Be Mcintyre [facility] Work Phone: Start: 09-24-2024 End: 09-24-2024W Be Mcintyre DO-Lab [facility] Work Phone: Start: 09-24-2024 End: 22-36-0906gmhtxklrxjAumvtr M Kiera SIZING MACHINE TENDER Work Phone: [facility] Work Phone: Start: 09-18-2024 End: 70-11-6124yfzxnwibbnYezdzr Scott Kiera SIZING MACHINE TENDER Work Phone: [facility] Work Phone: Start: 09-18-2024 End: 43-10-0634Jgwnqyr encounter procedureKeely Woodard Neurosurgery Work Phone: start: 09-18-2024 End: 73-15-0091Hbtoy [facility] Work Phone: start: 09-14-2024 End: 93-82-9819nbsfrvlvcrNohyah M Kiera SIZING MACHINE TENDER Work Phone: [facility] Work Phone: Start: 09-14-2024 End: 70-44-2452Tkpioox encounter procedureOpal Ga P DO-Lab [facility] Work Phone: Start: 09-14-2024 End: 55-32-0380Ibylw Kuns P DO-Lab [facility] Work Phone: Start: 08-27-2024 End: 44-01-1481Qctbtys encounter procedureBryamadou Sparkss P DO-Lab [facility] Work Phone: Start: 08-27-2024 End: 13-37-7523Rftze Kuns P DO-Lab [facility] Work Phone: Start: 08-27-2024 End: 95-69-0134thcwuoxqzlYfhzk KunsFacility:[facility] Start: 14-00-0431klgbbyjmeuLmgrlcasjRichard PompaFacility:Infectious DiseaseStart: 91-51-9775bqnsynnriwStpkuf J GaleaFacility:[place]Start: 07-23-2024 End: 25-87-4195zjlmmrqgwoGagozu R BuntingFacility:[facility] Hospitaltart: 07-23-2024 End: 87-72-3855Nmvwiow encounter procedureDarrin Ray [facility] DO-Lab [facility] Work Phone: Start: 07-23-2024 End: 23-68-4864Jwzjjd Ray [facility] DO-Lab [facility] Work Phone: Start: 2024 End: 44-52-3020Rkekgyrg Result EncounterFredric H Itjo annkowitz DO Work Phone: [facility] External Department UnsolicitedStart: 2024 End: 89-05-2624Rpglqirf Result EncounterFredric H Itzkowitz DO Work Phone: [facility] External Department UnsolicitedStart: 2024 Non-patient / Non-visitMichael Myranda Reynolds MD-[facility] Work Phone: Start: 26-44-5808Kswxka Kiera [employer]ING [employer]ACHINE [employer]ER Work Phone: [facility] Work Phone: Start: 07-12-2024 End: 54-14-8183Ddgqxffeon and management of inpatientAmanda M Kiera [employer]ZING MACHINE TENDER Work Phone: [facility] Work Phone: Start: 07-12-2024 End: 57-92-9873Kmjfpc Kiera SIZING MACHINE TENDER Work Phone: [facility] [place] [employer] Work Phone: Start: 07-12-2024 End: 02-58-2236grjqsutjmaZVVFQMOCandy HAMPTONRAFacility:CD:[id number]: 07-11-2024 End: 35-71-6556thvvfmgwwyRrejsdsmtRichard Mcclellancility:Infectious DiseaseStart: 07-09-2024 End: 12-41-7221xwdpzzajcvFhbprh R [facility] Work Phone: Start: 07-09-2024 End: 49-86-2264Xswvfiqt ReferredDarrin Ray Bunting DO-Lab [facility] Work Phone: Start: 07-09-2024 End: 27-18-3705Cdjyyl Bunting DO Work Phone: [facility]-Lab [facility] Work Phone: Start: 07-02-2024 End: 64-29-6586aztwpbydyjArcuen R [facility] Work Phone: Start: 07-02-2024 End: 16-20-1715Ixpnrjwl ReferredDarrin Ray Bunting DO-Lab [facility] Work Phone: Start: 07-02-2024 End: 75-56-2108Jkngev Bunting DO Work Phone: [facility]-Lab [facility] Work Phone: Start: 06-26-2024 End: 25-07-3452hugrdakehkVpnhwhpavRichard Mcclellancility:Infectious DiseaseStart: 06-25-2024 End: 37-13-6089xucwzfsyltThqwi Kuns DO Work Phone: [facility] Work Phone: Start: 06-25-2024 End: 38-34-4051Vhzusmzs ReferredDarrin Ray Bunting DO-Lab [facility] Work Phone: Start: 06-25-2024 End: 50-66-1328Jqwdt Kuns DO Work Phone: [facility]-Lab [facility] Work Phone: Start: 06-18-2024 End: 80-33-4330kxicuxynjjMqqaw Kuns DO Work Phone: [facility] Work Phone: Start: 06-18-2024 End: 53-83-6948Ywgkyffz ReferredBryamadou Sparkss DO Work Phone: [facility]-Lab [facility] Work Phone: Start: 06-18-2024 End: 54-40-6966Lnevmny encounter procedureDaalannaolinda Aguirre DO-Lab [facility] Work Phone: Start: 06-18-2024 End: 44-51-8359Lprqj Kuns DO Work Phone: [facility]-Lab [facility] Work Phone: Start: 06-13-2024 End: 43-68-8531bnxwjhldtiKmicd Tjs DO Work Phone: [facility] Work Phone: Start: 06-13-2024 End: 35-89-7863Zssmpgfr ReferredBryamadou Sparkss DO Work Phone: [facility]-Lab [facility] Work Phone: Start: 06-13-2024 End: 66-75-4336Vctghpi encounter procedureBryamadou Sparkss DO Work Phone: [facility]-Lab [facility] Work Phone: Start: 06-13-2024 End: 46-95-1693Cntib Kuns DO Work Phone: [facility]-Lab [facility] Work Phone: Start: 06-12-2024 End: 61-43-3442zzlemqajvhBlauj M Lizzi DO Work Phone: [facility] Work Phone: Start: 06-12-2024 End: 93-41-8150Vanftrr encounter procedureOpal Ga DO Work Phone: [facility]-Lab [facility] Work Phone: Start: 06-12-2024 End: 87-74-4518Unicy Lizzi DO Work Phone: [facility]-Lab [facility] Work Phone: Start: 06-11-2024 End: 13-59-8314ppbaxxnzbeCxpmf M Lizzi DO Work Phone: [facility] Work Phone: Start: 06-11-2024 End: 06-31-6561Dipelnd encounter procedureOpal Ga DO Work Phone: [facility]-Lab [facility] Work Phone: Start: 06-11-2024 End: 00-29-9391Rxkxy Lizzi DO Work Phone: [facility]-Lab [facility] Work Phone: Start: 06-07-2024 End: 16-61-3918aiqvfiivvmFuupjd Noel Saltzman SIZING MACHINE TENDER-CNPFacility:Infectious DiseaseStart: 06-06-2024 End: 49-55-1205wjedyqmcemNienf M Lizzi DO Work Phone: [facility] Work Phone: Start: 06-06-2024 End: 71-65-8322Iqbmstvf ReferredMarcos Martin DO Work Phone: [facility]-Lab [facility] Work Phone: Start: 06-06-2024 End: 11-47-4105Xcgrzke encounter procedureBryamadou Kuns DO Work Phone: [facility]-Lab [facility] Work Phone: Start: 06-06-2024 End: 61-44-9199Mqcix Lizzi DO Work Phone: [facility]-Lab [facility] Work Phone: Start: 06-04-2024 End: 06-10-3205snzdkkwdrkCnibmf Noel Saltzman SIZING MACHINE TENDER-CNPFacility:Infectious DiseaseStart: 06-01-2024 End: 93-15-8268pinhdogrxbSxfipb TannaFacility:EU [place]kyStart: 05-28-2024 End: 19-54-5900necvpzgzhdLewuk M Lizzi DO Work Phone: [facility] Work Phone: Start: 05-28-2024 End: 80-96-4419Qumyzws encounter procedureJaalondra Martin DO Work Phone: [facility]-Lab [facility] Work Phone: Start: 05-28-2024 End: 44-94-8614Xcakm Lizzi DO Work Phone: [facility]-Lab [facility] Work Phone: Start: 37-83-7661ykofplpxndLlizu LueFacility:EU [place]uskyStart: 05-21-2024 End: 65-06-2263pwyqwswwonYeucgw Noel Saltzman SIZING MACHINE TENDER-CNPFacility:Infectious DiseaseStart: 05-21-2024 End: 05-16-6263ahyfdkgroiJldwc M Lizzi DO Work Phone: [facility] Work Phone: Start: 05-21-2024 End: 39-02-3208Heudjty encounter procedureJaalondra Martin DO Work Phone: [facility]-Lab [facility] Work Phone: Start: 05-21-2024 End: 08-34-1462Glbgf Veronica DO Work Phone: [facility]-Lab [facility] Work Phone: Start: 05-14-2024 End: 08-65-7310hzkrpuwkdqFyjtk Scott Martin DO Work Phone: [facility] Work Phone: Start: 05-14-2024 End: 71-12-3068Tuquktac ReferredJared Veronica DO Work Phone: [facility]-Lab [facility] Work Phone: Start: 05-14-2024 End: 57-55-0615Zzcmizt encounter procedureJared Veronica DO Work Phone: [facility]-Lab [facility] Work Phone: Start: 05-14-2024 End: 39-16-2382Bfxmk Veronica DO Work Phone: [facility]-Lab [facility] Work Phone: Start: 05-10-2024 End: 90-56-4007uxqyvzugjbPjabpl Noel Saltzman SIZING MACHINE TENDER-CNPFacility:Infectious DiseaseStart: 05-07-2024 End: 59-30-0678xoyvvldmahMeveb M Veronica DO Work Phone: [facility] Work Phone: Start: 05-07-2024 End: 81-64-7345Ftehdrz encounter procedureJared Veronica DO Work Phone: [facility]-Lab [facility] Work Phone: Start: 05-07-2024 End: 42-51-7608Qslzz Veronica DO Work Phone: [facility]-Lab [facility] Work Phone: Start: 04-30-2024 End: 07-02-6946wzuhqhizitNzyqv M Lizzi DO Work Phone: [facility] Work Phone: Start: 04-30-2024 End: 89-54-0291Blbyndd encounter procedureJared Veronica DO Work Phone: [facility]-Lab [facility] Work Phone: Start: 04-30-2024 End: 36-67-1269Favkt Lizzi DO Work Phone: [facility]-Lab [facility] Work Phone: Start: 04-26-2024 End: 69-00-8808Jefggew nursing facility care/day 25 minutesThkhurarm Gabriel DPM Work Phone: Dr. 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 Work Phone: Start: 04-23-2024 End: 93-65-8614Xmxbu Lizzi DO Work Phone: [facility]-Lab [facility] Work Phone: Start: 04-15-2024 End: 36-53-6258Ymxececztq and management of inpatientAtheer R Moises TIDWELL [facility]: 67-69-6531Wbj-patient / Non-visitJared Veronica DO Work Phone: firla vergnef Physician [facility] Work Phone: Start: 74-62-7495Xsgsc Veronica DO Work Phone: [facility] Physician [facility] Work Phone: Start: 04-13-2024 End: 72-03-6849Tre-patient / Non-visitJared Veronica DO Work Phone: [facility] Work Phone: Start: 04-13-2024 End: 01-58-2690Ogiqg Veronica DO Work Phone: [facility] Work Phone: Start: 06-92-2647Iwc-patient / Non-visitJared Veronica DO Work Phone: [facility] Physician [facility] Work Phone: Start: 74-41-1625Ritym Veronica DO Work Phone: firla vergneg Physician [facility] Work Phone: Start: 04-03-2024 End: 06-88-8379Zqxwodt encounter procedureJared Veronica DO Work Phone: [facility] [place] Work Phone: Start: 04-03-2024 End: 56-49-4354Iiyly Veronica DO Work Phone: [facility] [place] Work Phone: Start: 04-03-2024 End: 91-14-0773smjcbcgkqzGxtrg M Veronica DO Work Phone: [facility] Work Phone: Start: 03-10-2024 End: 72-07-5687Dozxcoznej and management of inpatientOpal Ga DO Work Phone: [facility] [place] [facility] Work Phone: Start: 03-10-2024 End: 21-29-4936Wgofz Veronica DO Work Phone: [facility] [place] [facility] Work Phone: Start: 03-02-2024 End: 55-69-1375pjyhpgaqtbTrvnce R BuntingFacility:[facility] Hospitaltart: 03-02-2024 End: 41-04-2999Mzzucwfr ReferredOpal Ga DO Work Phone: [facility] [place] Work Phone: Start: 02-21-2024 End: 90-10-4910Xezwuqrqpu and management of inpatientSmitali Burris MD Work Phone: strz ICU STEPDOWN TELEMETRY 4KComment on above: Longstanding persistent atrial fibrillation (HCC) (Primary Dx); Cardiomyopathy, unspecified type (HCC); Lumbar stenosis with neurogenic claudicationStart: 02-16-2024 End: 84-85-9870exiketgmirJPUFEGERiverside [facility]app[facility]ann[facility] Hospital AmbulatoryStart: 02-16-2024 End: 72-11-4981Qzmoboxpa for preprocedural cardiovascular examinationRiverside [facility]app[facility] AmbulatoryStart: 02-16-2024 End: 85-44-0200Garzbl outpatient visit 25 minutesWhitinsville Hospital DO Work Phone: [facility] on above:Preop cardiovascular exam; Heart failure, NYHA class 2; Chronic atrial fibrillation (Multi); 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: 02-13-2024 End: 46-86-3471Sjapmwy encounter procedureOpal Ga DO Work Phone: [facility] Work Phone: Start: 12-30-2023 End: 15-84-9642Ajcuair encounter procedureOpal Ga DO Work Phone: [facility] [place] Work Phone: Start: 12-27-2023 End: 22-96-4260bqmvfxaoyhJusnodlbnMercy Health [facility] Work Phone: Start: 12-27-2023 End: 86-83-5260Yxkzjka encounter procedureFirsthealth [facility] Work Phone: Start: 10-24-2023 End: 04-32-5679knosasebwaRrbpuhf Vytautas Giedraitis MDFacility:PM [place] Start: 10-10-2023 End: 02-11-1471wdwrcowwciFxbxpky Vytautas Giedraitis MDFacility:[facility] [place] Start: 09-21-2023 End: 98-94-7551fprqbfvdozUT Opal Ga Work Phone: [facility] Work Phone: Start: 09-21-2023 End: 16-75-0063Ynuoymt encounter procedureDO Opal Ga Work Phone: [facility] Work Phone: Start: 09-12-2023 End: 85-37-3891eayqgsasloBA Opal Ga Work Phone: [facility] Work Phone: Start: 09-12-2023 End: 78-29-8401Zkqdqqc encounter procedureDO Opal Ga Work Phone: [facility] [place] Work Phone: Start: 07-19-2023 End: 78-70-6332Tgwbclu encounter procedureDO Opal Ga Work Phone: [facility] [place] Work Phone: Start: 07-13-2023 End: 14-03-9411Wcmvig outpatient visit 25 minutesBeckiscott Whitmore Francisco Javier Work Phone: uh FirsthealthComment on above:Chronic atrial fibrillation (Multi); Essential hypertension, benign; Heart failure, NYHA class 2 (Multi); Hyperlipidemia, unspecified hyperlipidemia typeStart: 03-18-2023 End: 35-50-8784jnxaxsgctpYlrnx Kuns Other [employer] Other Start: 57-60-8574Ptogbv outpatient visit 25 minutes Opal [facility] [place]Start: 12-31-2022 End: 07-57-6836orsayqlbwhQpdlx Kuns Other [employer] Other Start: 86-99-5699Bdvcweohb encounterOpal [facility] [place]Start: 12-06-2022 End: 23-80-0779hjsxkmafopXwdqr Kuns Other no[facility] Other Start: 07-56-8858Rjaghfqwl encounterOpal SparksRu [facility] [place]Start: 11-30-2022 End: 73-19-0765xixcsipladRckbw Kuns Other [facility] [employer] Other Start: 68-10-2985Zytktcsxi encounterBryamadou [facility] CastaliaStart: 10-60-9863psskpnixroNGQUODZ HALKER .Facility:H1 Start: 09-15-2022 End: 64-81-9981mjekkzjglrXdkid Kuns Other [facility] [employer] Other Start: 14-44-7744Jqbefe outpatient visit 15 minutes Opal [facility] [place]Start: 22-67-6236Fsfrd UpdateOpal Ga Work Phone: [phone]-Oqryc [facility] [facility] DO Work Phone: Start: 22-97-5024Swpqxphom encounterBryamadou VenessaG [facility] [place]Start: 09-08-2022 End: 48-26-1178lszojltxivCZ Opal Ga Work Phone: [facility] Work Phone: Start: 09-08-2022 End: 41-70-1477Vamdlug encounter procedureDO Opal Ga Work Phone: [facility] [place] Work Phone: Start: 39-15-3182Mr RenewalOpal Sparkss Work Phone: [phone]-Zyhol [facility] [facility] DO Work Phone: Start: 07-08-2022 End: 10-12-3732jpcovzwgioGNCVSAPAKCSO LAKSHMIPATHY .Facility:D3Hsjpn: 07-07-2022 Office outpatient visit 15 minutesOpal Sparkss Work Phone: [phone]-Nimky [facility] DO Work Phone: Start: 90-69-4583binytlsusuMh. Bryan Keith Tjmyranda Facility:[id number]: 06-07-2022 End: 40-86-3050dossmeekpsClkwb Kuns Other [facility] [employer] Other Start: 82-53-1924Zpxbwg outpatient visit 25 minutes Opal TjmyrandaReece [facility] [place]Start: 06-01-2022 End: 69-86-8475dexpcbvbhgKrqai Kuns Other [facility] [employer] Other Start: 53-90-2813Koiwvitgp encounterEdmondamadou GaReece [facility] CastaliaStart: 05-13-2022 End: 57-95-2359iryeolcbntKUNUJDYX MURPHYFacility:I3Gkpaj: 05-11-2022 End: 84-40-3387rbnhalgtagUjjvm Kuns Other [facility] [employer] Other Start: 74-71-9049Zuazidmgr encounterEdmondamadou GaFarren Memorial Hospital CastaliaStart: 04-15-2022 End: 60-58-5669njhrnnfoybSO TROY BRAMBILA .Facility:M6Kyrfb: 04-12-2022 End: 43-25-5536xwijxbkkisID Bryan Kuns Work Phone: [facility] Work Phone: Start: 04-12-2022 End: 37-80-7382Bpejtztflc RecurringDO Opal Ga Work Phone: [facility]-Physical Therapy [place] Work Phone: start: 03-30-2022 End: 74-66-2489bvtavxgiroRP TROY BRAMBILA .Facility:W8Pspks: 49-35-3810Ou RenewalOpal Ga Work Phone: [phone]-Kwlpa [facility] DO Work Phone: Start: 05-87-3278bktjgvqzxmNocqyi Ibrahim Facility:[id number]: 50-49-2121kdralciuknDmmbulatoryMs. Enedelia GomezFacility: Start: 46-86-3829Ckhdqwi encounter procedureOpal Ga Work Phone: [phone]-Gbwnf [facility] DO Work Phone: Start: 23-19-1622Wxojn UpdateOpal Ga Work Phone: [phone]-Xxzti [facility] DO Work Phone: Start: 43-94-3673Cxbijonvsj RecurringDO Opal Ga Work Phone: [facility]-Physical Therapy [place] Work Phone: start: 03-11-2022 End: 30-01-1001hzgkaddirdRD Opal Ga Work Phone: [facility] Work Phone: Start: 03-11-2022 End: 07-28-8034Nwuawfw encounter procedureDO Opal Ga Work Phone: [facility]-Lab [place] Work Phone: Start: 86-98-5930ZXX, Provider: Enedelia Mix, Status: Pen, Time: 2:30 PMOpal Ga Work Phone: [phone]-Aqnuk [facility] DO Work Phone: Start: 57-29-2926Mhifzn outpatient visit 25 minutes Opal Ga Work Phone: [phone]-Dfcxj [facility] 600 DO Work Phone: Start: 23-68-4856Loorhay encounter procedureOpal Saprkss Work Phone: [phone]-Wwllk [facility] DO Work Phone: Start: 17-96-0073rhxavljgruHcDane Gomez Facility:[id number]: 03-09-2022 End: 68-90-9648ccgbnfjidyVevlz Kuns Other [employer] Other Start: 09-53-8798Mosrdg outpatient visit 15 minutes Opal SparksmyrandaReece [facility] CastaliaStart: 03-04-2022 End: 00-22-3101zoronbbuutRifoe Kuns Other [facility] [employer] Other Start: 85-11-5325Hzobnnvdi encounterBryamadou DailyFarren Memorial Hospital CastaliaStart: 24-21-0188Br RenewalBryan P Kuns Work Phone: [phone]-AnajoSt. [facility] [facility] Work Phone: Start: 03-03-2022 End: 52-45-3918xblqduzswhNkwdu Kuns Other [facility] [employer] Other Start: 84-19-1064Tepgcdnar encounterOpal DailyReece [facility] [place]Start: 02-18-2022 End: 37-69-2539dfnjoolitbHC TROY VelaFacility:F5Mxmkk: 67-47-6214Bs RenewalBryan P Kuns Work Phone: [phone]-NutsxNorth[facility] 250 DO Work Phone: Start: 02-09-2022 End: 12-52-5616nmmllaqjwpUfens Kuns Other [employer] Other Start: 14-24-6609Aryfkg outpatient visit 25 minutes Opal SparksmyrandaReece [facility] [place]Start: 01-13-2022 End: 37-89-3621twqcbgoikyRvhmo Kuns Other [facility] Other Start: 05-58-9917Wbphqdvkc encounterOpal Coleman [facility] CastaliaStart: 58-23-5930ipjjkzisiiMf. Opal Ga Facility:[id number]: 79-89-6504ucdyvuaorqCwtgzq IbrahimFacility:9090Start: 00-55-7162zdrppedhkoOk. Opal GaFacility:9090Start: 01-09-2022 End: 17-96-8455Ksgaxokzhg and management of inpatientDO Opal Ga Work Phone: [facility] [place] [facility] SurgStart: 01-07-2022 End: 58-71-7112ftmrvwvqatQveaz Kuns Other [employer] Other Start: 32-93-7271Jwrmlu outpatient visit 25 minutes Opal GaReece [facility] CastaliaStart: 12-25-2021 End: 75-25-2723pqmiyaodcaSppiz Kunmyranda Other [employer] Other Start: 74-61-5223Gotoywdzk encounterOpal GaReece [facility] CastaliaStart: 12-17-2021 End: 66-54-2218vlicpztbxtQA TROY BRAMBILA .Facility:G6Tepvx: 12-17-2021 End: 14-91-8555xdoqcqjnukTC Opal Ga Work Phone: [facility] Work Phone: Start: 12-17-2021 End: 47-03-3711Bbbcggl encounter procedureDO Opal Ga Work Phone: [facility]-Lab [place]Start: 12-01-2021 End: 93-63-0365lstqtldftlNJ TROY S BRAMBILA .Facility:S4Ziglm: 11-12-2021 End: 33-47-4614vvkfxdtlbzUX NELSY GAFacility:L0Iggho: 10-12-2021 End: 26-37-6481elkedovarbIxkoq Kuns Other [employer] Other Start: 83-71-3055Iwfcsv outpatient visit 15 minutes Opal [facility] [place]Start: 09-28-2021 End: 04-28-3641vqylmucdalXalqn Kuns Other [facility] [employer] Other Start: 21-40-5572Rlypxwgtn encounterOpal Coleman [facility] [place]aliaStart: 09-28-2021 End: 91-06-9516Vsgzzpifac RecurringDO Opal Sparksmyranda Work Phone: [facility]-Physical Therapy [place]Start: 09-11-2021 End: 87-48-1513wdgngrmvhhQlmgt Kuns Other [facility] [employer] Other Start: 70-28-6006Ladwzbw evaluation of patient and reportOpal GaReece [facility] CastaliaStart: 34-07-8247Mcibcfpoi encounter Opal GaReece [facility] [place]Start: 09-10-2021 End: 21-94-4072ggllttnrysJZ BRETT KUNSSM [facility] [employer] Other Start: 09-04-2021 End: 04-74-9882eoemgwmqpzBhmvr Kuns Other [facility] [employer] Other Start: 19-18-5340Krmqpwotn encounterOpal Coleman [facility] [place]aliaStart: 08-31-2021 End: 57-98-0882pwrgylugajVlcbu Kuns Other [employer] Other Start: 48-36-8911Tpwoyi outpatient visit 25 minutes [facility] [place]Start: 08-17-2021 End: 17-82-2862vufuvncfdoRF TROY S МАРИНА .Facility:L9Xvljh: 08-13-2021 End: 82-25-2851yldttfgubyHH TROY Myranda BRAMBILA .Facility:Z3Vkume: 80-97-8537Pnwxoq outpatient visit 15 minutesBrymaadou Ga Work Phone: [phone]-YlsqmEssentia Health 250 DO Work Phone: Start: 10-49-2081bfvckbedykCyDane Parker Daily Facility:[id number]: 07-28-2021 End: 09-59-4997urkpkkzljePU TROY Whitmore BRAMBILA .Facility:J2Murlu: 05-25-2021 End: 12-67-6218forwvkvzhkIlxyo Kuns Other noAll[facility] Other Start: 14-02-0125Xiyahutxv encounterOpal CliffordG Family Medicine [place]aliaStart: 61-59-9907Ji RenewalOpal Ga Work Phone: [phone]-JwddyS[place] [address] DO Work Phone: Start: 03-11-2021 End: 36-44-4067yfopkofjjcBuwia Kuns Other [employer] Other Start: 96-09-8480Qjoevdreq encounterOpal Coleman [facility] [place]aliaStart: 03-05-2021 End: 97-82-6655yjcxyzquvoTrwdv Kuns Other noAlliance Health Networks Other Start: 96-59-3518Cfnhmrmwk encounterOpal CliffordG Family Medicine [place]Start: 49-52-2503Br RenewalOpal Sparkss Work Phone: [phone]-CnbsrWestbrook [facility] Center 250 DO Work Phone: Start: 01-19-2021 End: 97-27-4379lpjultwswgDvrdy Kuns Other [employer] Other Start: 70-51-0855Dcjupr outpatient visit 25 minutes Opal GaFPG [facility] [place]aliaStart: 29-51-6531Bs RenewalOpal Myers Daily Work Phone: [phone]-Qrcml [facility] 250 DO Work Phone: Start: 15-14-3527Ie RenewalOpal Sparksmyranda Work Phone: [phone]-Bdanz [facility] [place] Work Phone: Start: 33-44-8164Wscoaf outpatient visit 15 minutes Opal Ga Work Phone: [phone]-Wavyj [facility] DO Work Phone: Start: 81-46-0512Bfujrpw encounter procedureBryamadou Ga Work Phone: [phone]-Xsoyy [facility] DO Work Phone: Procedures DateProcedureProcedure DetailPerforming ClinicianStart: 05-15-7222Zithd culture Opal Ga DO Work Phone: Start: 82-08-6684Odsuk cultureOpal Ga DO Work Phone: Start: 47-33-6729WW cervical spine without contrast PHYSICIAN NO FAMILYStart: 85-64-7252AP of head without contrastPHYSICIAN NO FAMILYStart: 43-53-3132Palnh chest X-rayPHYSICIAN NO FAMILYStart: 63-43-2584KHH of lumbar spine with contrastPHYSICIAN NO FAMILYStart: 14-46-8907Ynpi energy X- ray absorptiometryPHYSICIAN NO FAMILYStart: 08-14-4495JG of head without contrastOpal Ga DO Work Phone: Start: 81-82-5814MD of lumbar spine without contrast Opal Ga DO Work Phone: Start: 82-05-0170V-ray of lumbar spine, six views including bending viewsBryan Kuns DO Work Phone: Start: 40-30-6284Glcgq cultureAmanda Kiera SIZING MACHINE TENDER Work Phone: Start: 32-81-1107SH of head without contrastAmanda Kiera SIZING MACHINE TENDER Work Phone: Start: 05-41-6911Hbebr chest X-rayAmanda Kiera SIZING MACHINE TENDER Work Phone: Start: 62-53-6773Nhctxlde identified in Blood by CultureBryan Tjs DO Work Phone: Start: 18-11-0952Yjgtz Screen MRSA/MSSABryan Tjs DO Work Phone: Start: 66-45-2330Tauxl cultureAmanda Kiera SIZING MACHINE TENDER Work Phone: Start: 82-77-3189Sndobk Kiera SIZING MACHINE TENDER Work Phone: Start: 10-06-2024 End: 95-12-9018YR of head without contrastAmanda Kiera SIZING MACHINE TENDER Work Phone: Start: 64-80-8579GQ cervical spine without contrast Melvi Kiera SIZING MACHINE TENDER Work Phone: Start: 86-74-0937NS of facial bones without contrast Melvi Kiera SIZING MACHINE TENDER Work Phone: Start: 12-77-4130OB of head without contrastAmanda Kiear SIZING MACHINE TENDER Work Phone: Start: 32-67-6968Mtjpu cultureAmanda Kiera SIZING MACHINE TENDER Work Phone: Start: 05-49-1932Ndiqa cultureAmanda Kiera SIZING MACHINE TENDER Work Phone: Start: 92-34-6708Obpnq chest X-rayAmanda Kiera SIZING MACHINE TENDER Work Phone: Start: 53-52-2720Szsjyzx microbial cultureAmanda Kiera SIZING MACHINE TENDER Work Phone: Start: 42-09-5007Hlbkpjggu microbial cultureAmanda Kiera SIZING MACHINE TENDER Work Phone: Start: 80-94-1561Dwlg stain microscopyAmanda Kiera SIZING MACHINE TENDER Work Phone: Start: 65-94-3144TJSABFA CULTUREFredric H Itzkowitz DO Work Phone: Start: 64-07-0059PYBORGECO CULTUREFredric H Itzkowitz DO Work Phone: Start: 19-86-8357MY of lower leg without contrast Melvi Kiera SIZING MACHINE TENDER Work Phone: Start: 44-80-5176AX of abdomen and pelvis without contrastAmanda Kiera SIZING MACHINE TENDER Work Phone: Start: 81-57-3700Whohk Screen MRSA/MSSAAmanda Kiera SIZING MACHINE TENDER Work Phone: Start: 90-73-3231Rgiqceboa for occult blood in feces Melvi Kiera SIZING MACHINE TENDER Work Phone: Start: 88-90-0965Jydlmh Kiera SIZING MACHINE TENDER Work Phone: Start: 56-67-7711Exvyk chest X-rayAmanda Kiera SIZING MACHINE TENDER Work Phone: Start: 19-08-0269Godngfqg identified in Blood by CultureAmanda Kiera SIZING MACHINE TENDER Work Phone: Start: 59-88-3410Bbvboagrp ID (NA Multiplex Assay) Melvi Kiera SIZING MACHINE TENDER Work Phone: Start: 79-66-3730Mqvbg cultureAmanda Kiera SIZING MACHINE TENDER Work Phone: Start: 07-12-2024 End: 88-97-1282Ywbrk nucleic acid assayAmanda Kiera SIZING MACHINE TENDER Work Phone: Start: 51-49-4932Qbbaan Kiera SIZING MACHINE TENDER Work Phone: Start: 58-00-1126Smpvs cultureJared Veronica DO Work Phone: Start: 47-72-0135VG pre/post mri xrayJared Veronica DO Work Phone: Start: 28-71-0987HU lumbar spine wo conJared Veronica DO Work Phone: Start: 04-03-2024 End: 31-35-4365Drfzf Veronica DO Work Phone: Start: 47-61-5811Jkgympwm identified in Blood by CultureOpal Ga DO Work Phone: Start: 19-81-4940Xfjkyizrphs Panel (PCR)Opal Ga DO Work Phone: Start: 25-56-0853Vnrue cultureOpal Ga DO Work Phone: Start: 74-71-3068Pqzom Veronica DO Work Phone: Start: 20-87-6919Wiyjp chest X-rayOpal Ga DO Work Phone: Start: 14-79-7524Zbhcp gap [Moles/Vol]Gustabo Diglio PA Work Phone: Start: 80-34-2659Tgrfg metabolic panel calcium total Gustabo Diglio PA Work Phone: Start: 00-84-7371BGWADXFDRM FILTRATION RATE, ESTIMATED Gustabo Diglio PA Work Phone: Start: 94-89-8872Mimfol ecg 1-3 leads w/interpretation & reportUnknown Provider ResultStart: 41-68-5953Rgzgot ecg 1-3 leads w/interpretation & reportUnknown Provider ResultStart: 96-74-2551Edzdh gap [Moles/Vol]Gustabo Diglio PA Work Phone: Start: 05-70-1204Rrmio metabolic panel calcium total Gustabo Diglio PA Work Phone: Start: 77-98-9894QNLZOXYZNC FILTRATION RATE, ESTIMATED Gustabo Diglio PA Work Phone: Start: 85-99-8813Uhgzrqaro virus A and B RNA and SARS-CoV-2 (COVID-19) N gene panel - Respiratory specimen by SMITHA with probe detectionRanda King MD Work Phone: Start: 17-67-5036RKPGRNW, SEPSISRanda King MD Work Phone: Start: 44-11-1601Econxwzm identified in Blood by Aerobe cultureRanda King MD Work Phone: Start: 48-99-4238Npqqy count complete automatedOlfannie King MD Work Phone: Start: 19-14-9760Zvnmhte bacterial blood aerobic w/id isolatesOlfannie King MD Work Phone: Start: 31-88-3670PWUYSOD, SEPSISOlfannie King MD Work Phone: Start: 97-17-4556Zpfqx gap [Moles/Vol]Gustabo Diglio PA Work Phone: Start: 66-51-0806Mqhjs metabolic panel calcium total Gustabo Diglio PA Work Phone: Start: 62-71-5468ZITFXYGIYO FILTRATION RATE, ESTIMATED Gustabo Diglio PA Work Phone: Start: 54-77-1192Lsvduy and language therapy regime Randa King MD Work Phone: Start: 09-68-1014Uicwkrnigr exam chest single view Randa King MD Work Phone: Start: 07-19-9092Jc head/brain w/o contrast material Randa King MD Work Phone: Start: 62-10-8577Mnqz bld gluc mntr dev cleared fda spec home useAlexis Diglio PA Work Phone: Start: 61-71-3922Hfarr gap [Moles/Vol]Gustabo Diglio PA Work Phone: Start: 01-66-7042Mbrog metabolic panel calcium total Gustabo Diglio PA Work Phone: Start: 22-74-9237XVPRVDMPZD FILTRATION RATE, ESTIMATED Gustabo Diglio PA Work Phone: Start: 43-92-5451Fsef tthrc r-t 2d w/wom-mode compl spec&colr Baldev King MD Work Phone: Start: 02-23-2024 End: 31-92-8080Penryb ecg 1-3 leads w/interpretation & reportUnknown Provider ResultStart: 48-17-7251Slrpm gap [Moles/Vol]Gustabo Diglio PA Work Phone: Start: 89-64-6502Rrsgo metabolic panel calcium total Gustabo Diglio PA Work Phone: Start: 63-96-7411CICMDCVVBO FILTRATION RATE, ESTIMATED Gustabo Diglio PA Work Phone: Start: 00-16-8044Uszapq ecg 1-3 leads w/interpretation & reportUnknown Provider ResultStart: 56-03-7399Lqhigjiezfu peptideOlfannie King MD Work Phone: Start: 02-22-2024 End: 37-79-8726Chbikj ecg 1-3 leads w/interpretation & reportUnknown Provider ResultStart: 29-81-8682Rheo bld gluc mntr dev cleared fda spec home useAlexis Diglio PA Work Phone: Start: 98-86-7025Vjkdq gap [Moles/Vol]Gustabo Diglio PA Work Phone: Start: 79-63-3928Pbfgw metabolic panel calcium total Gustabo Diglio PA Work Phone: Start: 37-51-2482PKNQBJDLPQ FILTRATION RATE, ESTIMATED Gustabo Diglio PA Work Phone: Start: 21-13-4905Fbaa bld gluc mntr dev cleared fda spec home useAlexis Diglio PA Work Phone: Start: 49-68-8846Nbefrv ecg 1-3 leads w/interpretation & reportUnknown Provider ResultStart: 36-66-0383Bwzsb count hemoglobinSttyrone Whittington Parvez PA-C Work Phone: Start: 00-32-4704Ssfnk spine 1 view specify level Selmerna Burris MD Work Phone: Start: 02-21-2024 End: 13-84-1114Qdpzhhffewo posterior/posterolateral lumbarSelvon Moshe Burris MD Work Phone: Start: 02-21-2024 End: 98-22-3937Ibqoxhmsr spine surgery local from same incisionSmitali Burris MD Work Phone: Start: 02-21-2024 End: 67-86-7409Maz facetectomy & foramotomy [address] [facility] Work Phone: Start: 42-99-2803Scanjumt screenSel[address] [facility] Work Phone: Comment on above:Performed at [facility] [address] [place] [id number]: 12-43-6462Brbar typing serologic aboAlexis Diglio PA Work Phone: Start: 37-26-7522Pqw routine ecg w/least 12 lds w/i&r Tavo Mcintyre DO Work Phone: Start: 87-52-9669BR of right hipDO Opal Sparksmyranda Work Phone: Start: 70-03-5677Waobb X-ray of right hipDO Opal Daily Work Phone: Start: 32-08-7941Llslv cultureDO Opal Daily Work Phone: Start: 46-73-4610Tkufa culture for bacteria, including anaerobic screenDO Opal Ga Work Phone: start: 98-61-8986Kaeaq chest X-rayDO Opal Ga Work Phone: Start: 53-58-8757OOX of lumbar spine with contrastDO Opal Ga Work Phone: Start: 26-10-0663Wsknipg ultrasonography of bilateral carotid arteriesDO Opal Ga Work Phone: Start: 41-57-3421Ekcgdleugvahlxo of bilateral kidneys DO Opal Ga Work Phone: Start: 77-98-7927LDSJ Antigen (LFIA)DO Opal Ga Work Phone: Start: 16-27-7001Nbzxk chest X-rayDO Opal Ga Work Phone: Start: 75-46-1124Jnlnlzdt tomography of thoracic spine without contrastDO Opal Ga Work Phone: Start: 53-09-7020JJ cervical spine without contrastDO Opal Ga Work Phone: Start: 24-99-8349YO of head without contrastDO Opal Ga Work Phone: Start: 76-69-6166YB of lumbar spine without contrastDO Opal Ga Work Phone: Start: 58-72-3761Taqkr colonoscopyOpal Ga Work Phone: Comment on above:[facility];Arthroplasty of kneeOpal P Tjs Work Phone: Comment on above:2016 and 2020;Arthroscopy of shoulder Opal P Tjs Work Phone: Cardiac catheterizationEdmondamadou P Tjs Work Phone: Epidural steroid injectionOpal P Tjs Work Phone: History of excision of lamina of lumbar vertebra for decompression of spinal cordHx of decompressive lumbar laminectomyAmanda Kirea SIZING MACHINE TENDER Work Phone: Comment on above:2011-with tumor resectionHistory [...] Work Phone: Plan of Treatment DateCare ActivityDetailAuthorStart: 88-02-0057LpvpjTriHealthtart: 95-52-1913MsdaalqjjSt. Francis Hospitaltart: 95-22-7113Jnitm [facility] Centertart: 12-27-2024 Bacteria identified in Urine by CultureACMC Healthcare System Glenbeightart: 11-15-5559XobfchytnSt. Francis Hospitaltart: 12-12-2024 Hospital admissionSt. Francis Hospitaltart: 97-77-2899Xaocummp identified in Urine by CultureOhioHealth Hardin [facility] Start: 44-30-8537WmfxzTriHealthtart: 10-10-2024 [facility]: 10-06-2024 End: 46-73-2858XdzrwnpxsSt. Francis Hospitaltart: 28-18-4737Thzozgxx admissionSt. Francis Hospitaltart: 85-47-7495JqtyqfnogSt. Francis Hospitaltart: 98-71-6585Tjpczlgf identified in Urine by CultureACMC Healthcare System Glenbeightart: 70-78-9551TpxjkTriHealthtart: 18-15-7388ooevefcwvwKbcnbdfnnoJpctuxyt:EU Ameena Start: 80-30-2545EqiriomknSt. Francis Hospitaltart: 12-44-8961AipitfrlyParma Community General Hospital CenterStart: 60-46-8950PckpgowimParma Community General Hospital CenterStart: 42-28-7441YgfwolncbParma Community General Hospital CenterStart: 07-18-2024 End: 19-79-2813Uwbbcko encounter eyspynyjh12/14/2025 10:00 AM EDT Office Visit [place] [id number] [facility] [address] [place] [id number] Tavo Mcintyre DO [address] [place] [address] [facility]Start: 99-30-8743BswbekcslSt. Francis Hospitaltart: 07-17-2024 End: 03-60-6447NukgciiubParma Community General Hospital CenterStart: 67-56-3361Hkpkmsjtminac metabolic 1999 panel - Serum or PlasmaParma Community General Hospital CenterStart: 07-16-2024 End: 59-87-8291QbykjltukParma Community General Hospital CenterStart: 24-37-9998Bpzpjldmk microbial cultureParma Community General Hospital CenterStart: 29-12-8398Gnvirkzkljkli metabolic 1999 panel - Serum or PlasmaParma Community General Hospital CenterStart: 2024 End: 18-44-5176ZqgzmxrrtParma Community General Hospital CenterStart: 77-31-6965Skemeuql to infectious diseases physicianParma Community General Hospital CenterStart: 07-14-2024 Comprehensive metabolic 1999 panel - Serum or PlasmaParma Community General Hospital CenterStart: 07-14-2024 End: 63-47-2329YjpdngmrfParma Community General Hospital CenterStart: 22-93-0563Vlaygrhluaxvw metabolic 1999 panel - Serum or PlasmaParma Community General Hospital CenterStart: 55-26-8552NdrlyjwphParma Community General Hospital CenterStart: 07-12-2024 End: 34-04-2989OegkuhdszParma Community General Hospital CenterStart: 29-21-3302Jogowhdo admissionParma Community General Hospital CenterStart: 69-51-0435Lvcjndwro culture of sputumParma Community General Hospital CenterStart: 77-65-3390Pboximvg therapy procedureParma Community General Hospital CenterStart: 20-97-4284Xdggzlrz to occupational therapistSt. Francis Hospitaltart: 35-94-7963Johkrpzm to urologistSt. Francis Hospitaltart: 62-05-8219Zcvdv culture [facility] Hospitaltart: 07-12-2024 End: 17-73-3819KlfhlxeeqSt. Francis Hospitaltart: 07-12-2024 Hemoglobin.gastrointestinal [Presence] in StoolSuburban [facility] Start: 45-80-2814Zumticku of Right Lower Leg Skin, External ApproachSt. Francis Hospitaltart: 62-52-7608Waqkkykwd of Infusion Device into Superior Vena Cava, Percutaneous ApproachSt. Francis Hospitaltart: 83-65-7937OgyvcdqspSt. Francis Hospitaltart: 06-12-2024 End: 98-13-4393Pobjr [facility]ertart: 03-15-20[address] [facility]tart: 28-56-9013LavhyzsodSt. Francis Hospitaltart: 44-98-5211Knmwlgwr identified in Blood by CultureBlood Culture St. [facility] Hospitaltart: 90-65-5954Navsbijl therapy procedure St[facility] Hospitaltart: 11-79-0417Morusjdt to occupational therapistSt. Francis Hospitaltart: 98-89-7620QicqkqxqsSt. Francis Hospitaltart: 19-75-3063Hiwbqsgq admissionSt. Francis Hospitaltart: 03-10-2024 End: 13-45-8302FhajlbediSt. Francis Hospitaltart: 02-30-1802Pvsslin function panelSt. Francis Hospitaltart: 59-46-6615Tycnujl Directive DiscussionAdvance Directive DiscussionMercy Hospitaltart: 79-29-3194Icahbr Wellness Visit (Medicare)Annual Wellness Visit (Medicare)Bon [facility] CenterK[facility]: 16-86-5876Eratu-19 Vaccine ( season)Covid- 19 Vaccine ()[facility]: 11-68-5421NQHTZ-19 Vaccine ()COVID-19 Vaccine ()Bon [facility] CenterK[facility]: 94-71-4682UKKLI-19 Vaccine ( season)COVID-19 Vaccine ( season)[facility] HospitalStrienzi: 11-54-7934Luhrumwll vaccinationInfluenza Vaccine (#1)[facility] HospitalStrienzi: 31-63-5674Ngejhkzhl vaccinationFlu vaccine (#1)Rick [facility] SystemStart: 07-13-2023 End: 93-96-4520Mbkwawf aminotransferase [Enzymatic activity/volume] in Serum or Plasma by With P-5'-PAlanine Aminotransferase Lab Routine Hyperlipidemia, unspecified hyperlipidemia type Expected: 07/13/2023 (Approximate), Expires: 07/12/2024Un[facility] Work Phone: Comment on above:Expected: 07/13/2023 (Approximate), Expires: 07/12/2024Start: 07-13-2023 End: 63-11-7870Ntybpakyn aminotransferase [Enzymatic activity/volume] in Serum or Plasma by With P-5'-PAspartate Aminotransferase Lab Routine Hyperlipidemia, unspecified hyperlipidemia type Expected: 07/13/2023 (Approximate), Expires: 07/12/2024UnUpper [facility] Center Work Phone: Comment on above:Expected: 07/13/2023 (Approximate), Expires: 07/12/2024Start: 07-13-2023 End: 78-59-2598Jmhyq metabolic 2000 panel - Serum or PlasmaBasic Metabolic Panel Lab Routine Chronic atrial fibrillation (Multi) Essential hypertension, benign Heart failure, NYHA class 2 (Multi) Hyperlipidemia, unspecified hyperlipidemia type Expected: 07/13/2023 (Approximate), Expires: 07/12/2024[facility] Service Area Work Phone: Comment on above:Expected: 07/13/2023 (Approximate), Expires: 07/12/2024Start: 07-13-2023 End: 67-76-5234Ooyeu 1996 panel - Serum or PlasmaLipid Panel Lab Routine Hyperlipidemia, unspecified hyperlipidemia type Expected: 07/13/2023 (Approx imate), Expires: 07/12/2024UnUpper [facility] Center Work Phone: Comment on above:Expected: 07/13/2023 (Approximate), Expires: 07/12/2024Start: 07-13-2023 End: 07-38-7909Fuumktmmwqx peptide B [Mass/volume] in BloodB-Type Natriuretic Peptide Lab Routine Heart failure, NYHA class 2 (Multi) Expected: 07/13/2023 (Approximate), Expires: 07/12/2024[facility] Work Phone: Comment on above:Expected: 07/13/2023 (Approximate), Expires: 07/12/2024Start: 99-13-2615YLG, Provider: Tavo Mcintyre, Status: Pen, Time: 9:40 AMFUV, Provider: Tavo Mcintyre, Status: Pen, Time: 9:40 AMMP-[facility] Work Phone: Start: 09-50-8238JyaktvxcvswciotvZmlweavrlibrdc [facility] HospitalStart: 87-78-8199MGDFU-19 Vaccine ( season)COVID-19 Vaccine ( season)[facility] Start: 35-24-2275KHO, Provider: Tavo Mcintyre, Status: Pen, Time: 9:20 AMFUV, Provider: Tavo Mcintyre, Status: Pen, Time: 9:20 [facility] [place] [facility] Work Phone: Start: 30-85-1926PXDNPN MON, Provider: LVEAR MARES ACQUISITIONS ASSISTANT 1,[id number], Status: Pen, Time: 10:30 [facility] MON, Provider: LEVAR MARES ACQUISITIONS ASSISTANT 1,[id number], Status: Pen, Time: 10:30 AMMP-[facility] DO Work Phone: Start: 98-74-6070XEN, Provider: Enedelia Mix, Status: Pen, Time: 2:30 PMFUV, Provider: Enedelia Mix, Status: Pen, Time: 2:30 PMMP-[facility] DO Work Phone: Start: 12-62-2927EdfijljaiSuburban Community Hospital & [facility] Start: 04-42-5775Bupxxevm to infectious diseases physicianSt. Francis Hospitaltart: 72-90-2893Luuwvzoe to neurologistSt. Francis Hospitaltart: 73-55-2827Jygqevfl to Social ServicesSt. Francis Hospitaltart: 61-88-8574Azgpenwk admissionSt. Francis Hospitaltart: 88-37-5282KhwygbewiSt. Francis Hospitaltart: 20-67-0719EZA, Provider: Tavo Mcintyre, Status: Pen, Time: 9:50 AMMP-[facility] DO Work Phone: Start: 57-38-7375VFM, Provider: Tavo Mcintyre, Status: Pen, Time: 9:30 AMFUV, Provider: Tavo Mcintyre, Status: Pen, Time: 9:30 [facility] DO Work Phone: Start: 62-16-0852Wkxogqvnqbn Syncytial Virus (RSV) or age 60 yrs+ (1 - 1-dose 75+ series)Respiratory Syncytial Virus (RSV) or age 60 yrs+ (1 - 1-dose 75+ series)[facility] CenterStart: 32-76-0668EHH High Risk: (Elderly (60+) or Population) (1 - 1-dose 75+ series)RSV High Risk: (Elderly (60+) or Population) (1 - 1-dose 75+ series)[facility] HospitalStart: 73-83-4850SJC Vaccine (1 - 1-dose 75+ series)RSV Vaccine (1 - 1-dose 75+ series)[facility]: 06-02-2016 Pneumococcal 65+ years Vaccine (2 of 2 - PPSV23 or PCV20)Pneumococcal 65+ years Vaccine (2 of 2 - PPSV23 or PCV20)[facility] CenterStart: 06-02-2016 Pneumococcal Vaccine: 65+ Years (2 of 2 - PPSV23 or PCV20)Pneumococcal Vaccine: 65+ Years (2 of 2 - PPSV23 or PCV20)[facility]: 13-11-7318QGT patients and/or patients aged 60+ years (1 - 1-dose 60+ series)RSV patients and/or patients aged 60+ years (1 - 1-dose 60+ series)[facility]: 03-36-5065Armmpnslactu Vaccine: 50+ (1 of 1 - PCV)Pneumococcal Vaccine: 50+ (1 of 1 - PCV)[facility]: 48-80-2611Qotlnbso vaccine (1 of 2)Shingles vaccine (1 of 2)[facility]: 92-43-5721Pphpefzo Vaccine (1 of 2)Shingrix Vaccine (1 of 2) [facility]: 84-91-3264Kybtbg Vaccines (1 of 2)Zoster Vaccines (1 of 2)[facility]: 50-50-4632Upqvbaax ScreeningDiabetes ScreeningGerman Hospitalrt: 19-23-3428QIlG/Tdap/Td Vaccines (1 - Tdap) DTaP/Tdap/Td Vaccines (1 - Tdap)[facility]: 39-07-2471UWzB/Tdap/Td vaccine (1 - Tdap)DTaP/Tdap/Td vaccine (1 - Tdap)[facility]: 86-62-3297Wvzbr microalbumin profileDTaP,Tdap,Td Vaccine (1 - Tdap)[facility]: 89-15-6816Gzhemkq ScreeningAnxiety ScreeningGerman Hospitalrt: 09-30-7454Yyjqzrqnlu ScreeningDepression ScreeningGerman Hospitalrt: 45-98-9809Kukckapq mellitus screeningDiabetes ScreeningUnSamaritan Hospital: 25-10-2206Vxrvufesvk Screen Depression ScreenBon [facility]: 96-84-9513Uiqjf panelLipidsBon [facility]: 48-14-5101Uhhivqhcix measurementCreatinine Level [facility]: 67-62-0276Qacpa panelLipid Panel [facility]: 05-11-1942Medicare Annual Wellness Visit Medicare Annual Wellness Visit (AWV)[facility]: 48-70-6062Grnqgjpms measurementPotBeaver County Memorial Hospital – [facility] Start: 97-83-7638Itbgjoo stimulating hormone measurementTSINTEGRIS Bass Baptist Health Center – EnidAEROBIC CULTUREAEROBIC CULTURE Lab Routine 2024 12:15 PM EDTNOME Healthcare Work Phone: ANAEROBIC CULTUREANAEROBIC CULTURE Lab Routine 2024 12:15 PM EDHenderson County Community HospitalAnion gap measurementGrant Hospital Work Phone: Bacteria identified in Blood by Aerobe cultureBon [facility] SystemBacteria identified in Urine by CultureUrine Culture [facility] End: 46-86-9460Ufeno metabolic 1999 panel - Serum or PlasmaBasic Metabolic Panel Lab Routine Daily for 1 Weeks starting 02/22/2024 until 02/28/2024, 6 completed Bon [facility] SystemComment on above:Daily for 1 Weeks starting 02/22/2024 until 02/28/2024, 6 completedBasophil countGrant Hospital Work Phone: Basophil percent differential countGrant Hospital Work Phone: Blood culture for bacteria, including anaerobic screen Blood CultureSuburban Community Hospital & Brentwood HospitalCalcium [Mass/volume] in Serum or PlasmaGrant Hospital Work Phone: Carbon dioxide, total [Moles/volume] in Serum or PlasmaGrant Hospital Work Phone: Chloride [Moles/volume] in Serum or PlasmaGrant Hospital Work Phone: Comprehensive metabolic 1999 panel - Serum or Plasma [facility] HospitalCreatinine and Glomerular filtration rate.predicted panel - Serum, Plasma or BloodGrant Hospital Work Phone: CT Lumbar spine WO [facility]CT Unspecified body region WO [facility] Debridement nail any method 1-5DEBRIDEMENT OF NAIL(S), 1-5 Procedures Routine Pain due to onychomycosis of toenail of left foot Pain due to onychomycosis of toenail of right foot Localized edema Decreased pedal pulses group home (current) use of anticoagulants Ordered: 04/26/2024P [facility] Work Phone: Comgdjs on above:Ordered: 04/26/2024Eosinophil percent differential countParma Community General Hospital Ctr Work Phone: Eosinophils [#/volume] in [facility] Work Phone: Erythrocyte mean corpuscular volume determination [facility] Work Phone: Erythrocytes [#/volume] in BloodParma Community General Hospital Ctr Work Phone: Glucose [Mass/volume] in Serum or PlasmaParma Community General Hospital Ctr Work Phone: Glucose [Mass/volume] in Serum or PlasmaPOCT Glucose Point of Care Testing STAT As Needed until discontinued starting 02/21/2024on [facility] Zuu Onlnine Work Phone: comment on above:As Needed until discontinued starting 02/21/2024Glucose [Mass/volume] in Serum or PlasmaPOCT Glucose Point of Care Testing STAT As Needed until discontinued starting 02/21/2024[facility] on above:As Needed until discontinued starting 02/21/2024 Hematocrit [Volume Fraction] of [facility] Work Phone: Hemoglobin [Mass/volume] in [facility] Work Phone: Hemoglobin distribution, width determinationParma Community General Hospital Ctr Work Phone: Leukocytes [#/volume] in [facility] Work Phone: Lymphocyte countParma Community General Hospital Ctr Work Phone: Lymphocyte percent differential countParma Community General Hospital Ctr Work Phone: Mean corpuscular hemoglobin concentration determinationParma Community General Hospital Ctr Work Phone: Mean corpuscular hemoglobin determinationParma Community General [facility]tr Work Phone: Measurement of renal functionPar[facility] General [facility] Work Phone: Monocyte countParma Community General Hospital Ctr Work Phone: Monocyte percent differential countParma Community General Hospital Ctr Work Phone: MR Lumbar spine WO and W contrast [facility]MR Lumbar spine WO and W contrast [facility] HospitalNeutrophil countParma Community General Hospital Ctr Work Phone: Neutrophil percent differential countParma Community General Hospital Ctr Work Phone: Oxygen therapy [Minimum Data Set]Initiate Oxygen Therapy Protocol Respiratory Care Routine As Needed until discontinued starting 02/21/2024 yaM Labs on above:As Needed until discontinued starting 02/21/2024atient EducationParma Community General Hospital Ctr Work Phone: Patient referralPar[facility] Work Phone: Platelet mean volume determinationParma Community General Hospital [facility]tr Work Phone: Platelets [#/volume] in BloodParma Community General Hospital Ctr Work Phone: Potassium [Moles/volume] in Serum or PlasmaParma Community General Hospital Ctr Work Phone: Sodium [Moles/volume] in Serum or PlasmaParma Community General Hospital Ctr Work Phone: Spirometry panelIncentive spirometry Respiratory Care Routine Every 2hr while awake until discontinued starting 02/21/2024 yaM Labs on above:Every 2hr while awake until discontinued starting 02/21/2024Urea nitrogen [Mass/volume] in Serum or PlasmaParma Community General Hospital Ctr Work Phone: End: 20-99-4226Mqbbpussyx with Reflex to CultureUrinalysis with Reflex to Culture Lab Routine One Time for 1 Occurrences starting 02/25/2024 until 04/27/2023 yaM Labs on above:One Time for 1 Occurrences starting 02/25/2024 until 02/25/2024Urine [facility] AndersonXR Lumbar spine ViewsSebastian River Medical Center Immunizations Immunization DateImmunizationNotesCare ToqdibkiZnbpiacn61-21-9479aatthfxwv virus vaccine, unspecified formulationDO Opal Ga Work Phone: [facility]10-13-2023influenza, high dose seasonal, preservative-freeOpal Ga Other [facility]10-20-2022influenza, seasonal, injectableOpal Ga Other [facility]10-20-2022COVID-19 Moderna (BIvalent)Opal Ga Other [facility]10-20-2022Fluzone High-Dose Quadrivalent 0.7 ML Intramuscular Suspension Prefilled SyringeOpal P Daily Work Phone: [facility]12-15-2021Moderna COVID-19 Vaccine 100 MCG/0.5ML Intramuscular SuspensionBryan P Tjs Work Phone: [facility]03-24-2021Moderna COVID-19 Vaccine 100 MCG/0.5ML Intramuscular SuspensionBryan P Tjs Work Phone: [facility]03-01-2021COVID-19 Vaccine Moderna - Documentation Purposes OnlyOpal Ga Other [facility] [facility]Moderna COVID-19 Vaccine 100 MCG/0.5ML Intramuscular SuspensionBryan P Kuns Work Phone: [facility]02-08-2021Moderna COVID-19 Vaccine 100 MCG/0.5ML Intramuscular SuspensionEdmondan P Kuns Work Phone: [facility]10-17-2020Fluzone High-Dose Quadrivalent 0.7 ML Intramuscular Suspension Prefilled SyringeEdmondan P Tjs Work Phone: [facility]10-01-2020influenza, seasonal, injectableBryan P Kuns Work Phone: [facility]09-18-2019influenza, seasonal, injectableBryan Kuns Other [facility]09-16-2019Seasonal trivalent influenza vaccine, adjuvanted, preservative freeBryan P Kuns Work Phone: [facility]09-01-2019influenza virus vaccine, unspecified formulationBryan P Kuns Work Phone: [phone] [address] [place] Work Phone: [phone], high dose seasonal, preservative-freeBryan P Kuns Work Phone: [facility]10-01-2018influenza, seasonal, injectableBryan Kuns Other [facility]09-01-2018influenza virus vaccine, unspecified formulationBryan P Kuns Work Phone: [phone][place] [address] DO Work Phone: [phone] virus vaccine, unspecified formulationBryan P Kuns Work Phone: [phone]-[place] [address] DO Work Phone: [phone] conjugate vaccine, 13 valent Opal P Kuns Work Phone: [phone][place] [address] DO Work Phone: [phone] 40/XylocaineBryan Kuns Other [employer] Other Payers DatePayer CategoryPayerPolicy [id number]-[id number] Cross Blue Shield Managed CareASCENSION [facility] 1.2.840.056446.1.13.647.2.7.9.447694.120320.81067-33-7708Ylftgzp23-78-1176 Medicare1.2.840.174144.1.13.647.2.7.3.583206.94878-39-5615TkapAdventHealth [facility] INDEMNITY .2.840.448606.1.13.159.2.7.9.782001.37023. [facility] [id number] .9.990206.524419 1960Medicare [id number] .1.17220[id number] .1.843420.3.579.2.18686-24-6784Zuibinr871119065 .1.034751.3.579.2.02020-66-6750Ffqyuuj611818602 2.16.840.1.492915.3.579.2.35301-91-4480Bznixvt972115858 2.16.840.1.195164.3.579.2.08208-88-7868Ctyrujd603305580 2.16.840.1.068679.3.579.2.54848-97-2092Lbboohn121238220 2.16.840.1.025302.3.579.2.47150-88-1788Vilomzc037258211 2.16.840.1.140101.3.579.2.20538-46-2893Ecrisdo265357566 2.840.1.694459.3.579.2.95648-88-4257Saezkkc685675672 2.840.1.644515.3.579.2.31061-30-4477Lqywpdq8623701 2.16840.1.675929.3.579.2.66890-12-6294Wniwgla0986404 2.16.840.1.539715.3.579.2.69075-79-4767Eszxees5540904 2.840.1.988120.3.579.2.86248-36-3960Hmxaeky5855425 2.16.840.1.006298.3.579.2.64331-31-6380Nrknfcn5273765 2.16.840.1.481845.3.579.2.32501-68-7196Snmisnz5738231 2.16.840.1.555003.3.579.2.97660-19-4425Vkimvfh0119116 2.16840.1.523088.3.579.2.72916-81-7649Lwcmwbu6448878 2.16.840.1.692926.3.579.2.68598-54-6572Xtognfl5037886 2.16.840.1.055637.3.579.2.19416-21-7204Tpidpxz2992995 2.16.840.1.233046.3.579.2.65141-40-1333Meithfm9284573 2.16.840.1.530867.3.579.2.61219-16-7193Coxrsgl1406682 2.16.840.1.618537.3.579.2.58119-15-8093Ussrmxq7798089 2.16840.1.017813.3.579.2.17231-42-4483Pbobban790931576 2.16840.1.108349.3.579.2.2321-37-9025Yfbtvcy49056726 2.16.840.1.263846.3.579.2.59065-64-0641Xmmapnn90828780 2.16.840.1.959759.3.579.2.40315-50-5584Zbphipv82785623 2.16.840.1.628218.3.579.2.91544-20-9002Xptxuni07411248 2.16840.1.659165.3.579.2.91579-68-7600Ytoryix39608524 2.16.840.1.820429.3.579.2.65234-50-8092Snkcryl80696694 2.16.840.1.225727.3.579.2.16650-28-1294Bcefdas583155749 2.16.840.1.280360.3.579.2.97457-42-1878Qwnodrx871610886 2.16.840.1.938772.3.579.2.69009-84-0700Qudycyw244166690 2.840.1.690751.3.579.2.66590-69-0266Aqgzqub891480758 2.840.1.676632.3.579.2.02269-21-4928Ubhkgla850777168 2.84.1.829114.3.579.2.96036-48-4232Tuakyyf578939274 2.0.1.889766.3.579.2.43454-38-3724Vtjqhne512795772 2..1.062983.3.579.2.25774-23-0922Skcbufr346496565 2..1.602022.3.579.2.42115-79-5404Kahmmoq075885266 2..1.960447.3.579.2.27481-75-2518Fbmyduj402450382 2..1.558321.3.579.2.64283-10-8528Hchryxc553325259 2.840.1.424250.3.579.2.0286Kuaikhx44123717 2..1.467441.3.579.2.531 Edzcdgu36938976 2.840.1.685235.3.579.2.836Wgjokyy93215550 2.840.1.862938.3.579.2.992Jjdfyat28299788 2.840.1.488814.3.579.2.531 Kctkled86573917 2.840.1.311197.3.579.2.933Ghkpyia23194847 2.840.1.454326.3.579.2.134Kzpfnnk43485655 2.16.840.1.020141.3.579.2.531 Cybbpyn53419678 2.840.1.237226.3.579.2.869Hnidmab25888208 2.840.1.837631.3.579.2.798Dkablxk07385614 2.840.1.009820.3.579.2.531 Tagidfh80215813 2.840.1.963902.3.579.2.971Eyfnbux93433083 2.840.1.670179.3.579.2.512Ycbybla13416143 2.840.1.026310.3.579.2.531 Krobuqm22069699 2.840.1.706125.3.579.2.529Uuzaeud25139947 2.840.1.152922.3.579.2.673Ebfrwoa07799074 2.0.1.175717.3.579.2.531 Smskohk12572326 2..1.753390.3.579.2.397Xcesdte59752145 2.840.1.434505.3.579.2.521Ldqpezj78356449 2.840.1.233783.3.579.2.531 Hyjkxsj57977699 2.840.1.480145.3.579.2.940Cbzgfmk82843057 2.840.1.654720.3.579.2.889Ktflahw32972793 2.840.1.753632.3.579.2.531 Ambstly94667292 2.840.1.648129.3.579.2.089Vdvuavn84298087 2.840.1.417119.3.579.2.118Bfxcvmt87547083 2.16.840.1.870402.3.579.2.531 Funnerp02009250 2.16.840.1.043299.3.579.2.174Lbrjntm58510308 2.16.840.1.265664.3.579.2.244Eykwudl16309137 2.16.840.1.698561.3.579.2.531 Pgwjgwi51053741 2.16.840.1.393560.3.579.2.531 Social History DateTypeDetailFacilityStart: 07-13-2023 End: 20-45-9800Gfcdj alcohol useDaily alcohol use-[facility] 250 DO Work Phone: Comment on above:1-2 beers;Coffee 2 cups daily;Quit smoking in 1979;Start: 07-13-2023 End: 50-92-9152Wbc Assigned At [facility] [employer] Other Start: 12-26-2019 End: 23-69-6084Hbwdlpt smoking status NHISEx-smoker (finding)[facility] 50-70-5570Uqc [facility] 04-07-1963 End: 85-84-2934Itlxogh of tobacco useCurrent smokerUnUpper Valley Medical Center Work Phone: Start: 04-07-1963 End: 47-90-7729Sdybtzz of tobacco useCigarette SmokerUnUpper Valley Medical Center Work Phone: Start: 07-13-2023 End: 00-52-5828Xezmgae use and exposureSmokeless tobacco non-userUnUpper Valley Medical Center Work Phone: Start: 07-13-2023 End: 78-33-4059Ztadasevy beverage intakeCurrent drinker of alcohol (finding) [facility] Work Phone: Start: 89-45-2995Onw assigned at birthNot on file [facility] Work Phone: Start: 07-03-2023 End: 73-10-5957Yevwmsmk to SARS-CoV-2 (event)Not sureOhioHealth Riverside Methodist HospitalStart: 83-38-5262Zbewxgnqz beverage intakeEx-drinker (finding)[facility] HospitalPhysical abuseDeniesBon [facility] CenterKaggle [facility] HospitalStart: 51-10-3395Ujdlzym Commentdaily couple a dayBon Osm[employer] [facility] HospitalStart: 03-10-2024 End: 64-30-2847QtmTbcp (finding)[facility] HospitalTobaroger [facility] smoking status NHISTobacco smoking consumption unknownCitizens Memorial HealthcareStart: 07-13-2024 End: 18-79-3614TuzfmishvGrant Hospital Work Phone: Medical Equipment Procedure CodeEquipment CodeEquipment Original TextEquipment IdentifierDates Arthroplasty, knee, total, minimally invasiveART SURF LEFT 11MM 10-11EFFDAStart: 00-95-0694Ovunijwzxpow, knee, total, minimally invasive ()[id number] FDAStart: 59-83-4647Ogloxgqerobh, knee, total, minimally invasive()[id number] FDA Start: 60-59-7047Dqebfcfuadtf, knee, total, minimally invasive ()[id number] FDAStart: 78-81-6971Fluwumsqolua, knee, total, minimally invasive()[id number] FDAStart: 84-13-9113Ramzveuniiag, knee, total, minimally invasiveART SURF LEFT 11MM 10-11EFFDAStart: 77-87-8263Hrebmxgizajy, knee, total, minimally invasiveART SURF LEFT 11MM 10-11EFFDAStart: 90-91-5873Zkqttdomzvdj, knee, total, minimally invasiveART SURF LEFT 11MM 10-11EFFDAStart: 09-65-0287Tzxmjlezumkp, knee, total, minimally invasiveART SURF LEFT 11MM 10-11EFFDAStart: 81-22-7838Saqkeevpetii, knee, total, minimally invasiveART SURF LEFT 11MM 10-11EFFDAStart: 11-05-2019 Arthroplasty, knee, total, minimally invasiveART SURF LEFT 11MM 10-11EFFDAStart: 63-84-8034Lzlcdncicylo, knee, total, minimally invasiveART SURF LEFT 11MM 10-11EFFDAStart: 23-22-5156Teyhotztqzfi, knee, total, minimally invasiveART SURF LEFT 11MM 10-11EFFDAStart: 38-97-3397Qpdminfwqgkk, knee, total, minimally invasiveART SURF LEFT 11MM 10-11EFFDAStart: 86-83-9672Luhchqfokjwx, knee, total, minimally invasiveART SURF LEFT 11MM 10-11EFFDAStart: 80-84-7847Jdisrcrdncox, knee, total, minimally invasiveART SURF LEFT 11MM 10-11EFFDAStart: 11-05-2019 Arthroplasty, knee, total, minimally invasiveART SURF LEFT 11MM 10-11EFFDAStart: 65-65-8320Rmcwzttwwnsw, knee, total, minimally invasiveART SURF LEFT 11MM 10-11EFFDAStart: 11-50-2660Thrmqhffoilr, knee, total, minimally invasiveART SURF LEFT 11MM 10-11EFFDAStart: 55-16-3058Ziesnwrivfxo, knee, total, minimally invasiveART SURF LEFT 11MM 10-11EFFDAStart: 56-97-4962Wispbeumrzmw, knee, total, minimally invasiveART SURF LEFT 11MM 10-11EFFDAStart: 89-63-9001Qfiqndvirpmc, knee, total, minimally invasiveART SURF LEFT 11MM 10-11EFFDAStart: 11-05-2019 Arthroplasty, knee, total, minimally invasiveART SURF LEFT 11MM 10-11EFFDAStart: 14-60-8447Luwihpmxwnwu, knee, total, minimally invasiveART SURF LEFT 11MM 10-11EFFDAStart: 01-97-9031Gxweuxdvzwuq, knee, total, minimally invasiveFDA Start: 22-95-6385Ppdivfbaxjlf, knee, total, minimally invasiveFDAStart: 68-10-8791Ynumwkvzoekk, knee, total, minimally invasiveART SURF LEFT 11MM 10-11EFFDAStart: 15-24-3150Qxejyavawbjv, knee, total, minimally invasiveART SURF LEFT 11MM 10-11EFFDAStart: 08-76-5039Vecpplawzdny, knee, total, minimally invasiveFDAStart: 56-41-5994Skmfsvutllww, knee, total, minimally invasiveFDA Start: 07-01-1485Zmhrpxfdijkx, knee, total, minimally invasiveFDAStart: 03-57-1001Kxwdmwipthtg, knee, total, minimally invasiveFDAStart: 11-05-2019 Arthroplasty, knee, total, minimally invasiveFDAStart: 02-66-2744Oipufdiuirdv, knee, total, minimally invasiveART SURF LEFT 11MM 10-11EFFDAStart: 11-05-2019 Arthroplasty, knee, total, minimally invasiveART SURF LEFT 11MM 10-11EFFDAStart: 84-24-8295Zghhpmktasvm, knee, total, minimally invasiveART SURF LEFT 11MM 10-11EFFDAStart: 97-44-2759Vbsgbiajaznj, knee, total, minimally invasiveART SURF LEFT 11MM 10-11EFFDAStart: 81-57-2607Abvuryewfsnu, knee, total, minimally invasiveFDAStart: 99-47-1451Atblmqscuuev, knee, total, minimally invasiveFDA Start: 18-34-0080Xndpurfdcdsz, knee, total, minimally invasiveART SURF LEFT 11MM 10-11EFFDAStart: 15-19-9975Ndwduzcfpumn, knee, total, minimally invasiveART SURF LEFT 11MM 10-11EFFDAStart: 99-37-1221Qcllfbbeeuyd, knee, total, minimally invasiveART SURF LEFT 11MM 10-11EFFDAStart: 67-80-0327Mwbujljcnkqs, knee, total, minimally invasiveART SURF LEFT 11MM 10-11EFFDAStart: 05-18-5684Fwodyujhpwap, knee, total, minimally invasiveART SURF LEFT 11MM 10-11EFFDAStart: 11-05-2019 Arthroplasty, knee, total, minimally invasiveART SURF LEFT 11MM 10-11EFFDAStart: 57-10-9203Tiqhowgblhag, knee, total, minimally invasiveFDAStart: 11-05-2019 Arthroplasty, knee, total, minimally invasiveART SURF LEFT 11MM 10-11EFFDAStart: 91-16-5183Enrquyqygeih, knee, total, minimally invasiveFDAStart: 11-05-2019 Goals DatePatient GoalDesired Activity/State Functional Status UprmTevwmwkqzcHyieagZmnhmcht76-40-1018Enjruycbcj statusPatient is Progressing Toward [facility] Work Phone: [phone] statusPatient Not at Baseline [facility] Work Phone: [phone] statusPatient is Progressing Toward [facility] Work Phone: [phone] statusPatient is Progressing Toward [facility] Work Phone: [phone] statusPatient at Baseline [facility] Work Phone: [phone] statusPatient at Baseline [facility] Work Phone: [phone] statusPatient is Progressing Toward [facility] Work Phone: Mental Status CwedRthotwxzfhUcdehqVlqbzjsb54-34-4090Mnmflljsn functionPatient at Baseline [facility] Work Phone: [phone] functionCognitive Status Patient [facility] Work Phone: [phone] functionPatient at Baseline [facility] Work Phone: [phone] functionPatient at Baseline [facility] Work Phone: [phone] functionPatient at Baseline [facility] Work Phone: [phone] functionPatient at Baseline [facility] Work Phone: [phone] functionCognitive Status [facility] Work Phone: Clinical Notes 05-23-2006 to 12-17-2024 Note Date & NpjfEwmvWlbphwou84-44-4365 Progress note Author Michele Knight [facility] HospitalNote Date/TimeOctober 2024 8:35pm [place] [address] Hospitalist Progress Note Signed Patient: Tavo Wallis Jr MR# : [id number] : 1940 Acct:[id number] Age/Sex: 84 / M Adm Date: 5 Loc: 4N Room: 7J9514-1 Type: ADM IN Attending Dr: Micehle Knight MD Copies to: ~ Date of [...] - Continue PT/OT, plan for discharge to halfway facility for further therapy needs A-fib on [...] <Electronically signed by Michele Knight MD> 12/17/242034 [facility] Work Phone: 1(710) 957-279910-13-2025 Progress note Author [facility] HospitalNote Date/TimeOctober 2024 4:47pm [place] [address] Cardiology Progress Note Signed Patient: Tavo Wallis Jr MR# : [id number] : 1940 Acct:[id number] Age/Sex: 84 / M Adm Date: 5 Loc: 4N Room: 0W6959-6 Type: ADM IN Attending Dr: Michele Knight [...] with RVR while on chronic anticoagulation. His YJLVH1IDXDscxye is 4 and HAS-BLED score is also [...] return to bradycardia while on at beta sraoj, will hold the metoprolol as welland continue [...] % (Auto) 64.7 Lymph % (Auto) 17.9 [place] % (Auto) 10.4 Eos % (Auto) 6.2 Baso % (Auto) 0.8 Nucleat RBC Rel Count 0.1 Neut # (Auto) 2.2 Lymph # (Auto) 0.6 L [place] # (Auto) 0.4 Eos # (Auto) 0.2 [...] <Electronically signed by Bhupinder Mcintyre DO> 12/17/241646 [facility] Work Phone: 1(726) 569-313010-12-2025 Progress note Author Akash Mccartney [facility] HospitalNote Date/TimeOctober 2024 9:46pm [place] [address] Hospitalist Progress Note Signed Patient: Tavo Wallis Jr MR# : [id number] : 1940 Acct:[id number] Age/Sex: 84 / M Adm Date: 5 Loc: Room: [address] [place] [address] Type: ADM IN Attending Dr: Akash Mccartney [...] - Continue PT/OT, plan for discharge to halfway facility for further therapy needs A-fib on [...] <Electronically signed by Akash Mccartney MD> 12/16/242145 [facility] Work Phone: 1(953) 190-918410-11-2025 Progress note Author Akash Mccartney [facility] HospitalNote Date/TimeOctober 2024 4:39pm [place] [address] Hospitalist Progress Note Signed Patient: Tavo Wallis Jr MR# : [id number] : 1940 Acct:[id number] Age/Sex: 84 / M Adm Date: 5 Loc: 4N Room: [address] [place] [address] Type: ADM IN Attending Dr: Akash Mccartney [...] Syringe IV-PUSH 12/12/25 21:59 Not Given QSHIFT [facility] Trazodone HCl 50 mg 12/12/24 18:24 12/14/24 [...] - Continue PT/OT, plan for discharge to halfway facility for further therapy needs A-fib on [...] future Documented By: Akash Mccartney MD 5 [id number] Signed By: <Electronically signed by Akash Mccartney MD> 12/15/24 7570 [facility] Work Phone: 1(460) 903-703910-10-2025 Progress note Author Akash Mccartney [facility] HospitalNote Date/TimeOctober 2024 5:22pm [place] [address] Hospitalist Progress Note Signed Patient: Tavo Wallis Jr MR# : [id number] : 1940 Acct:[id number] Age/Sex: 84 / M Adm Date: 5 Loc: 4N Room: [address] [place] [address] Type: ADM IN Attending Dr: Akash Mccartney [...] Tablet PO 12/12/25 21:59 400 mg QHS [facility] Administration Non-Formulary Medication 3 mg 12/12/24 22:00 12/13/24 23:08 Eszopiclone [Lunesta] PO 12/12/25 21:59 Not Given QHS [facility] Nystatin 1 applic 12/12/24 21:00 12/14/24 08:04 [...] - Continue PT/OT, plan for discharge to halfway facility for further therapy needs A-fib on [...] signed by Akash Mccartney MD> 12/14/24 1722 [facility] Work Phone: 1([phone] 782-275610-10-2025 Consult note Author Bhupinder Mcintyre [facility] HospitalNote Date/TimeOctober 2024 4:05pm [place] [address] Cardiology Consult Note Signed Patient: Tavo Wallis Jr MR# : [id number] : 1940 Acct:[id number] Age/Sex: 84 / M Adm Date: Loc: 4N Room: [address] [place] [address] Type: ADM IN Attending Dr: Akash Mccartney [...] with RVR while on chronic anticoagulation. His CDOOB2WEXYpskob is 4 and HAS-BLED score is also [...] his falling and weakness. [facility] Medical History Abrasion of arm, [...] drinks a day >6 Social History Comments: [facility] rehab Meds Medications and Allergies Allergies fentanyl [...] x10E3/uL Lymph # (Auto) 1.2 (1.00-4.8) x10E3/uL [place] # (Auto) 0.5 (0.0-0.8) x10E3/uL Eos # [...] <Electronically signed by RES Janie Khan> 12/14/24 6858 [facility] Work Phone: 1([phone]) 386-366610-09-2025 Progress note Author Akash Mccartney [facility] HospitalNote Date/TimeOctober 2024 5:[place] [address] Hospitalist Progress Note Signed with Addenda Patient: Tavo Wallis Jr MR# : [id number] : 1940 Acct:[id number] Age/Sex: 84 / M Adm Date: 5 Loc: 4 Room: [address] [place] [address] Type: ADM IN Attending Dr: Akash Mccartney [...] studies Documented By: Akash Mccartney MD 5 [id number] Signed By: <Electronically signed by Akash Mccartney MD> 12/13/24 8146 [facility] Work Phone: 1([phone]) 343-609610-09-2025 History and physical note Author Akash Mccartney [facility] HospitalNote Date/TimeOctober 2024 3:14[place] [address] Hospitalist H&P Signed Patient: Tavo Wallis MR# : [id number] : 1940 Acct:[id number] Age/Sex: 84 / M Adm Date: 5 Loc: 4N Room: 6J1754-9 Type: ADM IN Attending Dr: Akash Mccartney [...] noted above in HPI [facility] Medical History Abrasion of arm, [...] drinks a day >6 Social History Comments: [facility] re[facility] Meds Medications and Allergies Allergies fentanyl [...] % (Auto) 15.9 % (.) 12/12/24 12: [place] % (Auto) 7.5 % (.) 12/12/24 12: Eos % (Auto) 4.4 % (.) 12/12/24 12:25 Baso % (Auto) 0.6 % (.) 12/12/24 12: Nucleat RBC Rel Count 0.3 /100 WBC (0-0.5) 12/12/24 12: Neut # (Auto) 3.5 x10E3/uL (1.8-7.7) 12/12/24 12: Lymph # (Auto) 0.8 x10E3/uL (1.00-4.8) L 12/12/24 12: [place] # (Auto) 0.4 x10E3/uL (0.0-0.8) 12/12/24 12:25 [...] pH 5.5 (5.0-9.0) 12/12/24 13:19 Ur Specific [place] 1.004 (1.001-1.030) 12/12/24 13:19 Urine Protein Negative [...] <Electronically signed by Akash Mccartney MD> 12/13/24 6508 [facility] Work Phone: 1(615) 570-819810-08-2025 [facility] [place] [address] [place] [address] CT Scan Report Signed Patient: Tavo Wallis Jr MR# : [id number] : 1940 Acct:[id number] Age/Sex: 84 / M ADM Date: 5 Loc: ER Room: Type: [facility] ER Attending Dr: Copies to: Sree Thao DO~ Ordering Provider: Sree Thao DO Date of Service: 12/12/24 CT/CT cervical spine wo con: fall ([id number]) CT/CT head/brain wo con: fall CT head/brain [...] Mahoney M.D. 12/12/2024 1:53 PM Dictation Location: [place] [address] Transcribed By: [facility] 12/12/24 1353 Dictated By: Shaquille Mahoney II, MD 12/12/24 1346 Signed By: 12/12/24 1353 [facility] Work Phone: 1(314) 325-197008-27-2025 Radiology [facility] [place] [address] [place] [address] CT Scan Report Signed Patient: Tavo Wallis Jr MR# : [id number] : 1940 Acct:[id number] Age/Sex: 84 / M ADM Date: 5 Loc: CT Room: Type: [facility] Attending Dr: Jovany Stovall MD Copies to: [...] Cardoso M.D. 10/31/2024 5:33 PM Dictation Location: [place] [address] Transcribed By: [facility] 10/31/24 1733 Dictated By: Esa Cardoso DO 10/31/24 1726 Signed By: 10/31/24 1733 [facility]08-27-2025 Radiology Diagnostic study note [facility] [place] [address] [place] [address] CT Scan Report Signed Patient: Tavo Wallis Jr MR# : [id number] : 1940 Acct:[id number] Age/Sex: 84 / M ADM Date: 5 Loc: CT Room: Type: [facility] Attending Dr: Jovany Stovall MD Copies to: [...] Cardoso M.D. 10/31/2024 5:26 PM Dictation Location: [place] [address] Transcribed By: [facility] 10/31/241725 Dictated By: Esa Cardoso DO 10/31/24 171 Signed By: 10/31/241725 [facility]08-05-2025 Progress note Author Frankie Johnson [facility] Date/TimeAugust 2024 12:52pm[place] [address] Hospitalist Progress Note Signed Patient: Tavo Wallis Jr MR# : [id number] : 1940 Acct:[id number] Age/Sex: 84 / M Adm Date: 5 Loc: Room: [address] [place] [address] Type: ADM IN Attending Dr: Frankie Johnson [...] <Electronically signed by Frankie Johnson DO> 10/09/24 [facility] Work Phone: 1(221) 381-775008-04-2025 Progress note Author Frankie Johnson [facility] Date/TimeAugust 2024 8:15[place] [address] Hospitalist Progress Note Signed Patient: Tavo Wallis Jr MR# : [id number] : 1940 Acct:[id number] Age/Sex: 84 / M Adm Date: 5 Loc: Room: [address] [place] [address] Type: ADM IN Attending Dr: Frankie Johnson [...] Tablet PO 10/06/25 06:29 Not Given DAILY.0630 [facility] Magnesium Oxide 400 mg 10/06/24 09:00 10/08/24 [...] signed by Frankie Johnson DO> 10/08/24 0815 [facility] Work Phone: 1(279) 765-283408-03-2025 Progress note Author Franck Gagnon [facility] Date/TimeAugust 2024 10:[place] [id number] Hospitalist Progress Note Signed with Addenda Patient: Tavo Wallis Jr MR# : [id number] : 1940 Acct:[id number] Age/Sex: 84 / M Adm Date: 5 Loc: Room: [address] [place] [address] Type: ADM INOo Attending Dr: Franck Gagnon [...] signed by Franck Gagnon DO> 10/07/24 0959 [facility] Work Phone: 1(311) 164-481308-03-2025 Progress note Author Jovany Stovall [facility] Date/TimeAugust 2024 9:04[place] [address] Neurosurgery Progress Note Signed Patient: Tavo Wallis Jr MR# : [id number] : 1940 Acct:[id number] Age/Sex: 84 / M Adm Date: 5 Loc: 3T Room: [address] [place] [address] Type: ADM INOo Attending Dr: Franck Gagnon [...] patient up in my office in [address] of the head. He could be seen by my nurse practitioner atthat time. Documented By: Jovany Stovall MD 10/07/24901 Signed By: <Electronically signed by MD Jovany Stovall> 10/07/24903 [facility] Work Phone: 1(718) 858-725808-03-2025 Radiology Diagnostic study [facility] Work Phone: 1(883) 753-606608-03-2025 Radiology Diagnostic study [facility] Work Phone: 1(571) 932-754508-02-2025 Progress note Author Michele Knight [facility] Date/TimeAugust 2024 8:32[place] [address] Progress Note Signed Patient: Tavo Wallis Jr MR# : [id number] : 1940 Acct:[id number] Age/Sex: 84 / M Adm Date: 5 Loc: 3T Room: [address] [place] [address] Type: ADM INOo Attending Dr: Franck Gagnon [...] <Electronically signed by Michele Knight MD> 10/06/242031 [facility] Work Phone: 1(560) 392-825208-02-2025 Radiology Diagnostic study [facility] Work Phone: 1(602) 467-112008-02-2025 Progress note Author Franck Gagnon [facility] Date/TimeAugust 2024 11:47[place] [address] Hospitalist Progress Note Signed Patient: Tavo Wallis Jr MR# : [id number] : 1940 Acct:[id number] Age/Sex: 84 / M Adm Date: 5 Loc: 3T Room: [address] [place] [address] Type: ADM INOo Attending Dr: Franck Gagnon [...] DO Documented By: Franck Gagnon DO 10/06/24 1059 Signed By: <Electronically signed by Franck Gagnon DO> 10/06/24 2820 [facility] Work Phone: 1(780) 353-981708-02-2025 Consult note Author Jovany Stovall [facility] Date/TimeAugust 2024 9:00[place] [id number] Neurosurgery Consult Note Signed Patient: Tavo Wallis Jr MR# : [id number] : 1940 Acct:[id number] Age/Sex: 84 / M Adm Date: 5 Loc: 3T Room: [address] [place] [address] Type: ADM INOo Attending Dr: Franck Gagnon [...] below or in HPI [facility] Medical History (Updated 10/06/24 @ [...] drinks a day >6 Social History Comments: [facility] Meds Medications and Allergies Allergies fentanyl [...] % (Auto) 65.2, Lymph % (Auto) 19.8, [place] % (Auto) 9.9, Eos % (Auto) 4.7, Baso % (Auto) 0.4, Nucleat RBC Rel Count 0.2, Neut # (Auto) 3.7, Lymph # (Auto) 1.1, [place] # (Auto) 0.6, Eos # (Auto) 0.3, [...] you. Documented By: Jovany Stovall MD 10/06/24 0868 Signed By: <Electronically signed by MD Jovany Stovall> 10/06/24 09 [facility] Work Phone: 1([phone] 640-541208-02-2025 History and physical note Author Frankie Johnson [facility] Date/TimeAugust 2024 5:25[place] [address] Hospitalist H&P Signed Patient: Tavo Wallis Jr MR# : [id number] : 1940 Acct:[id number] Age/Sex: 84 / M Adm Date: 5 Loc: 3T Room: [address] [place] [address] Type: ADM INOo Attending Dr: Frankie Johnson [...] precautions. Consult to PT/OT. [facility] Medical History Insomnia Hypothyroidism Hypertension [...] drinks a day >6 Social History Comments: [facility] Meds Medications and Allergies Allergies fentanyl [...] % (Auto) 19.8 % (.) 10/05/24 19:30 [place] % (Auto) 9.9 % (.) 10/05/24 19:30 Eos % (Auto) 4.7 % (.) 10/05/24 19:30 Baso % (Auto) 0.4 % (.) 10/05/24 19:30 Nucleat RBC Rel Count 0.2 /100 WBC (0-0.5) 10/05/24 19:30 Neut # (Auto) 3.7 x10E3/uL (1.8-7.7) 10/05/24 19:30 Lymph # (Auto) 1.1 x10E3/uL (1.00-4.8) 10/05/24 19:30 [place] # (Auto) 0.6 x10E3/uL (0.0-0.8) 10/05/24 19:30 [...] <Electronically signed by Frankie Johnson DO> 10/06/24524 [facility] Work Phone: 1(978) 246-483708-01-2025 Radiology Diagnostic study [facility] Work Phone: 1(290) [phone] Radiology Diagnostic study [facility] Work Phone: 1(265) 841-804608-01-2025 Radiology Diagnostic study [facility] Work Phone: [phone]) 228-274907-31-2025 Evaluation note* Diagnosis Onset Date Resolution Status [...] of right heelacute December 12, 2024 2:39pm [facility] Work Phone: [phone] Evaluation note* Diagnosis Onset Date Resolution Status [...] 2:39pmAtrial fibrillation with RVR resolvedOctober 2024 2:39pm [facility] Work Phone: 1([phone]) [phone] Evaluation note* Diagnosis Onset Date Resolution Status Admit Date Hx of decompressive lumbar laminectomy acuteJuly 2024 3:12pmNeurogenic claudication due to lumbar spinal stenosis acuteJuly 2024 3:12pmRadicular low back painacuteJuly 2024 3:12pm Severe back painacuteJuly 2024 3:12pmCatheter-associated urinary tract infectionacuteJuly 2024 1:51pmCatheter-associated urinary tract infection acuteAugust 2024 7:05amIntracranial hemorrhageacuteAugust 2024 7:05am Abrasion of arm, leftinactiveAugust 2024 7:05amFallinactiveAugust 2024 7:05amFeverdeletedAugust 2024 7:05am [facility] Work Phone: 1(760) 551-694007-15-2025 Evaluation note* Diagnosis Onset Date Resolution Status [...] 2024 9:43amSevere back pain acuteSeptember 2024 9:43am [facility] Work Phone: [phone] Evaluation note* Diagnosis Onset Date Resolution Status [...] 2024 9:43amAtrial fibrillation with RVRacuteOctober 2024 2:39pm [facility] Work Phone: [phone] Progress note Author Frankie Reynolds [facility] Date/TimeMay 2024 8:51[place] [address] Infect. Disease Progress Note Signed Patient: Tavo Wallis Jr MR# : [id number] : 1940 Acct:[id number] Age/Sex: 84 / M Adm Date: 5 Loc: Room: [address] [place] [address] Type: ADM IN Attending Dr: Mario Jordan [...] 300 Mg Tablet) 300 mg PO DAILY [facility] Stop: 07/13/25 08:59 Last Admin: 07/17/24 08:15 Dose: 300 mg Apixaban (Apixaban 5 Mg Tablet) 5 mg PO BID [facility] Stop: 07/15/25 20:59 Last Admin: 07/17/24 08:15 Dose: 5 mg Atorvastatin Calcium (Atorvastatin 40 Mg Tablet) 40 mg PO DAILY [facility] Stop: 07/13/25 08:59 Last Admin: 07/17/24 08:15 Dose: 40 mg Bumetanide (Bumetanide 1 Mg Tablet) 1 mg PO DAILY@0800 [facility] Stop: 07/15/25 07:59 Last Admin: 07/17/24 08:15 Dose: 1 mg Cefepime HCl (Maxipime) 2 gm in 50 mls @ 12.5 mls/hr IV Q12H [facility] Last Admin: 07/17/24 08:15 Dose: 12.5 mls/hr Vancomycin HCl (Vancomycin) 1 gm in 250 mls @ 250 mls/hr IV Q24H [facility] Last Infusion: 07/16/24 12:00 Dose: Infused Levothyroxine Sodium (Levothyroxine 150 Mcg Tablet) 150 mcg PO DAILY.0630 [facility] Stop: 07/13/25 06:29 Last Admin: 07/17/24 08:15 Dose: 150 mcg Magnesium Oxide (Magnesium Oxide 400 Mg Tablet) 400 mg PO DAILY [facility] Stop: 07/13/25 08:59 Last Admin: 07/17/24 08:16 Dose: 400 mg Eszopiclone 3 Mg (Tablet) 3 mg PO QHS [facility] Stop: 07/12/25 21:59 Last Admin: 07/16/24 22:10 Dose: 3 mg Pom (Eszopiclone 3 (Mg Tablet)) 3 mg PO QHS [facility] Stop: 07/20/25 21:59 Oxycodone/Acetaminophen (Oxycodone/Acetaminophen 5-325 Mg [...] By: <Electronically signed by MD Frankie Reynolds> 07/17/2405 [facility] Work Phone: [phone]) [phone] Progress note Author Mario Jordan [facility] Date/TimeMay 2024 2:59[place] [address] Hospitalist Progress Note Signed Patient: Tavo Wallis Jr MR# : [id number] : 1940 Acct:[id number] Age/Sex: 84 / M Adm Date: 5 Loc: Room: [address] [place] [address] Type: ADM IN Attending Dr: Mario Jordan [...] gout, cardiomyopathy, history of CHF, [facility] for chief concern for hematuria. [...] Daily weights - Heart healthy diet - PT/OT-halfway facility - Full code SCD for DVT prophylaxis Documented By: Mario Jordan MD 07/16/241454 Signed By: <Electronically signed by Mario Jordan MD> 07/16/241458 [facility] Work Phone: 1([phone]) [phone] Progress note Author Frankie Reynolds [facility] Date/TimeMay 2024 9:28[place] [address] Infect. Disease Progress Note Signed Patient: Tavo Wallis Jr MR# : [id number] : 1940 Acct:[id number] Age/Sex: 84 / M Adm Date: 5 Loc: Room: [address] [place] [address] Type: ADM IN Attending Dr: Mario Jordan [...] 500 Mg Tablet) 500 mg PO TID [facility] Stop: 07/12/25 21:59 Last Admin: 07/15/24 22:09 [...] 5 Mg Tablet) 5 mg PO BID [facility] Stop: 07/15/25 20:59 Last Admin: 07/15/24 22:09 Dose: 5 mg Atorvastatin Calcium (Atorvastatin 40 Mg Tablet) 40 mg PO DAILY [facility] Stop: 07/13/25 08:59 Last Admin: 07/15/24 08:33 Dose: 40 mg Bumetanide (Bumetanide 1 Mg Tablet) 1 mg PO DAILY@0800 [facility] Stop: 07/15/25 07:59 Last Admin: 07/15/24 08:33 Dose: 1 mg Cefepime HCl (Maxipime) 2 gm in 50 mls @ 12.5 mls/hr IV Q12H [facility] Last Admin: 07/15/24 20:05 Dose: 12.5 mls/hr Vancomycin HCl (Vancomycin) 1 gm in 250 mls @ 250 mls/hr IV Q24H [facility] Levothyroxine Sodium (Levothyroxine 150 Mcg Tablet) 150 mcg PO DAILY.0630 [facility] Stop: 07/13/25 06:29 Last Admin: 07/16/24 05:21 Dose: 150 mcg Magnesium Oxide (Magnesium Oxide 400 Mg Tablet) 400 mg PO DAILY [facility] Stop: 07/13/25 08:59 Last Admin: 07/15/24 08:33 Dose: 400 mg Eszopiclone 3 Mg (Tablet) 3 mg PO QHS [facility] Stop: 07/12/25 21:59 Last Admin: 07/15/24 22:09 Dose: 3 mg Pom (Eszopiclone 3 (Mg Tablet)) 3 mg PO QHS [facility] Stop: 07/20/25 21:59 Oxycodone/Acetaminophen (Oxycodone/Acetaminophen 5-325 Mg Tablet) 1 tab PO Q4H PRN PRN Reason: Pain Scale 4 - 7 Last Admin: 07/13/24 22:05 Dose: 1 tab Polyethylene Glycol (Polyethylene Glycol 3350 17 Gm Powd.Pack) 17 gm PO BID [facility] Stop: 07/14/25 10:04 Last Admin: 07/15/24 20:11 Dose: Not Given Potassium Chloride (Potassium Chloride Er 20 Meq Tab.Er.Prt) 20 meq PO DAILY [facility] Stop: 07/13/25 08:59 Last Admin: 07/15/24 08:33 Dose: 20 meq Sennosides (Sennosides Syrup 8.8 Mg/5 Ml Udc) 8.8 mg PO BID [facility] Stop: 07/14/25 10:04 Last Admin: 07/15/24 20:12 [...] is just weak and is upper thighs. [facility] and off therapy only happens once a day and it sounds like he sits in a chair or bed for the rest of thetime. This is according to his family member. Documented By: Frankie Reynolds MD 07/16/24918 Signed By: <Electronically signed by MD Frankie Reynolds> 07/16/24927 [facility] Work Phone: 1([phone] Progress note Author Mario Jordan [facility] Date/TimeMay 2024 1:39[place] [address] Hospitalist Progress Note Signed Patient: Tavo Wallis Jr MR# : [id number] : 1940 Acct:[id number] Age/Sex: 84 / M Adm Date: 5 Loc: Room: [address] [place] [address] Type: ADM IN Attending Dr: Mario Jrodan MD Copies to: ~ Date of Service: [...] gout, cardiomyopathy, history of CHF, [facility] for chief concern for hematuria. [...] Daily weights - Heart healthy diet - PT/OT-halfway facility - Full code SCD for DVT prophylaxis Documented By: Mario Joradn MD 07/15/241334 Signed By: <Electronically signed by Mario Jordan MD> 07/15/241338 [facility] Work Phone: 1(175) [phone] Consult note Author Frankie Reynolds [facility] Date/TimeMay 2024 9:59[place] [id number] Infect. Disease Consult Note Signed Patient: Tavo Wallis Jr MR# : [id number] : 1940 Acct:[id number] Age/Sex: 84 / M Adm Date: 5 Loc: Room: [address] [place] [address] Type: ADM IN Attending Dr: Mario Jordan [...] below or in HPI [facility] Medical History Insomnia Hypothyroidism Hypertension [...] drinks a day >6 Social History Comments: [facility] Allergies and Medications Allergies and Active [...] 50 mls @ 12.5 mls/hr IV Q12H [facility] Last Admin: 07/15/24 08:34 Dose: 12.5 mls/hr Levothyroxine Sodium (Levothyroxine 150 Mcg Tablet) 150 mcg PO DAILY.0630 [facility] Stop: 07/13/25 06:29 Last Admin: 07/15/24 08:33 Dose: 150 mcg Magnesium Oxide (Magnesium Oxide 400 Mg Tablet) 400 mg PO DAILY [facility] Stop: 07/13/25 08:59 Last Admin: 07/15/24 08:33 Dose: 400 mg Eszopiclone 3 Mg (Tablet) 3 mg PO QHS [facility] Stop: 07/12/25 21:59 Last Admin: 07/14/24 23:17 Dose: Not Given Pom (Eszopiclone 3 (Mg Tablet)) 3 mg PO QHS [facility] Stop: 07/20/25 21:59 Oxycodone/Acetaminophen (Oxycodone/Acetaminophen 5-325 Mg Tablet) 1 tab PO Q4H PRN PRN Reason: Pain Scale 4 - 7 Last Admin: 07/13/24 22:05 Dose: 1 tab Polyethylene Glycol (Polyethylene Glycol 3350 17 Gm Powd.Pack) 17 gm PO BID [facility] Stop: 07/14/25 10:04 Last Admin: 07/15/24 08:17 [...] @ 12.5 mls/hr IV Q12H [facility] Rx#: [id number] Vancomycin 1.25 gm In Dextrose 275 / 550 5 % in Water 250 ml @ 183.333 mls/hr IV Q12H [facility] Rx#:[id number] Oral 860 / 1110 0 / 0 [...] signed by MD Frankie Reynolds> 07/15/24 0959 [facility] Work Phone: 1([phone]) [phone] Progress note Author Mario Jordan [facility] Date/TimeMay 2024 12:47[place] [address] Hospitalist Progress Note Signed Patient: Tavo Wallis Jr MR# : [id number] : 1940 Acct:[id number] Age/Sex: 83 / M Adm Date: 5 Loc: Room: [address] [place] [address] Type: ADM IN Attending Dr: Mario Jordan [...] gout, cardiomyopathy, history of CHF, was [facility] for chief concern for hematuria. [...] Daily weights - Heart healthy diet - PT/OT-halfway facility - General Surgery consulted for abscess in the right mid leg lateral aspect - Full code SCD for DVT prophylaxis Documented By: Mario Jordan MD 07/14/24 123 Signed By: <Electronically signed by Mario Jordan MD> 07/14/24 1249 [facility] Work Phone: [phone] Consult note Author Bryce Villeda [facility] Date/TimeMay 2024 12:21pm[place] [address] General Surgery Consult Note Signed Patient: Tavo Wallis Jr MR# : [id number] : 1940 Acct:[id number] Age/Sex: 83 / M Adm Date: 5 Loc: Room: [address] [place] [address] Type: ADM IN Attending Dr: Mario Jordan [...] have caused the injury. [facility] Medical History Insomnia Hypothyroidism Hypertension [...] drinks a day >6 Social History Comments: [facility] Allergies & Medications Medications and Allergies [...] 500 Mg Tablet) 500 mg PO TID [facility] Stop: 07/12/25 21:59 Last Admin: 07/14/24 09:05 [...] 50 mls @ 12.5 mls/hr IV Q12H [facility] Last Admin: 07/14/24 09:05 Dose: 12.5 mls/hr Levothyroxine Sodium (Levothyroxine 150 Mcg Tablet) 150 mcg PO DAILY.629 [facility] Stop: 07/13/25 06:29 Last Admin: 07/14/24 06:43 Dose: 150 mcg Magnesium Oxide (Magnesium Oxide 400 Mg Tablet) 400 mg PO DAILY [facility] Stop: 07/13/25 08:59 Last Admin: 07/14/24 09:05 Dose: 400 mg Eszopiclone 3 Mg (Tablet) 3 mg PO QHS [facility] Stop: 07/12/25 21:59 Last Admin: 07/13/24 21:44 Dose: Not Given Pom (Eszopiclone 3 (Mg Tablet)) 3 mg PO QHS [facility] Stop: 07/20/25 21:59 Oxycodone/Acetaminophen (Oxycodone/Acetaminophen 5-325 Mg Tablet) 1 tab PO Q4H PRN PRN Reason: Pain Scale 4 - 7 Last Admin: 07/13/24 22:05 Dose: 1 tab Polyethylene Glycol (Polyethylene Glycol 3350 17 Gm Powd.Pack) 17 gm PO BID [facility] Stop: 07/14/25 10:04 Potassium Chloride (Potassium Chloride Er 20 Meq Tab.Er.Prt) 20 meq PO DAILY [facility] Stop: 07/13/25 08:59 Last Admin: 07/14/24 09:05 Dose: 20 meq Sennosides (Sennosides Syrup 8.8 Mg/5 Ml Udc) 8.8 mg PO BID [facility] Stop: 07/14/25 10:04 Sodium Chloride (Sodium Chloride [...] Neut % (Auto) 84.9, Lymph %(Auto) 7.4, [place] % (Auto) 6.1, Eos % (Auto) 1.4, Baso % (Auto) 0.2, Nucleat RBC Rel Count 0.1, Neut# (Auto) 13.3 H, Lymph # (Auto) 1.2, [place] # (Auto) 1.0 H, Eos # (Auto) [...] Neut % (Auto) 90.2, Lymph %(Auto) 2.7, [place] % (Auto) 6.8, Eos % (Auto) 0.1, Baso % (Auto) 0.2, Nucleat RBC Rel Count 0.1, Neut# (Auto) 24.1 H, Lymph # (Auto) 0.7 L, [place] # (Auto) 1.8 H, Eos # (Auto) [...] % (Auto) N/A, Lymph % (Auto) N/A, [place] % (Auto) N/A, Eos % (Auto) N/A, Baso % (Auto) N/A, Nucleat RBC Rel Count N/A, Neut # (Auto) N/A, Lymph # (Auto) N/A, [place] # (Auto) N/A, Eos # (Auto) N/A, [...] Turbid A, Urine pH , Ur Specific [place] 1.020,Urine Protein , Urine Glucose (UA) , [...] % (Auto) 93.8, Lymph % (Auto) 4.2, [place] % (Auto) 0.4, Eos % (Auto) 1.3, Baso % (Auto) 0.3, Nucleat RBC Rel Count 0.2, Neut # (Auto)6.3, Lymph # (Auto) 0.3 L, [place] # (Auto) 0.0, Eos # (Auto) 0.1, [...] signed by Bryce Villeda DO> 07/14/24 1221 [facility] Work Phone: 1([phone]) 244-245005-10-2025 Radiology [facility] Work Phone: [phone]) [phone] Consult note Author Bayron farnsworth [facility] Date/TimeMay 2024 2:49[place] [address] Urology Consult Note Signed Patient: Tavo Wallis Jr MR# : [id number] : 1940 Acct:[id number] Age/Sex: 83 / M Adm Date: 5 Loc: Room: [address] [place] [address] Type: ADM IN Attending Dr: Mario Jordan [...] except as per HPI [facility] Medical History Insomnia Hypothyroidism Hypertension [...] drinks a day >6 Social History Comments: [facility] Meds Medications and Allergies Allergies fentanyl [...] in place with clear yellow urine 22 [place] three-way Skin: Warm and dry Extremities: No [...] Neut % (Auto) 90.2, Lymph %(Auto) 2.7, [place] % (Auto) 6.8, Eos % (Auto) 0.1, Baso % (Auto) 0.2, Nucleat RBC Rel Count 0.1, Neut# (Auto) 24.1 H, Lymph # (Auto) 0.7 L, [place] # (Auto) 1.8 H, Eos # (Auto) [...] % (Auto) N/A, Lymph % (Auto) N/A, [place] % (Auto) N/A, Eos % (Auto) N/A, Baso % (Auto) N/A, Nucleat RBC Rel Count N/A, Neut # (Auto) N/A, Lymph # (Auto) N/A, [place] # (Auto) N/A, Eos # (Auto) N/A, [...] Turbid A, Urine pH , Ur Specific [place] 1.020,Urine Protein , Urine Glucose (UA) , [...] % (Auto) 93.8, Lymph % (Auto) 4.2, [place] % (Auto) 0.4, Eos % (Auto) 1.3, Baso % (Auto) 0.3, Nucleat RBC Rel Count 0.2, Neut # (Auto)6.3, Lymph # (Auto) 0.3 L, [place] # (Auto) 0.0, Eos # (Auto) 0.1, [...] signed by Bayron Tom MD> 07/13/24 1449 [facility] Work Phone: [phone]) [phone] Progress note Author Mario Jordan [facility] Date/TimeMay 2024 2:38[place] [address] Hospitalist Progress Note Signed Patient: Tavo Wallis Jr MR# : [id number] : 1940 Acct:[id number] Age/Sex: 83 / M Adm Date: 5 Loc: Room: [address] [place] [address] Type: ADM IN Attending Dr: Mario Jordan [...] gout, cardiomyopathy, history of CHF, was sent [facility] from [facility] for chief concern for hematuria. [...] Daily weights - Heart healthy diet - PT/OT-halfway facility - Full code SCD for DVT prophylaxis Documented By: Mario Jordan MD 07/13/24 1430 Signed By: <Electronically signed by Mario Jordan MD> 07/13/24 1437 [facility] Work Phone: 1(997) 455-594805-09-2025 [facility] Work Phone: 1([phone]) 139-368605-08-2025 History and physical note Author Mario Jordan [facility] Date/TimeMay 2024 6:[place] [id number] Hospitalist H&P Signed Patient: Tavo Wallis Jr MR# : [id number] : 1940 Acct:[id number] Age/Sex: 83 / M Adm Date: 5 Loc: Room: [address] [place] [address] Type: ADM IN Attending Dr: Mario Jordan MD Copies to: MD Sandip Fajardo DO~ HPI DATE OF EXAMINATION: 07/12/24 CHIEF COMPLAINT: Hematuria HISTORY OF PRESENT ILLNESS: This is a 83-year-old male with significant past medical history of A-fib, hypothyroidism, hypertension, BPH on chronic Chou since March 2024 exchangingevery month, hyperlipidemia, gout, cardiomyopathy, history of CHF, was sent [facility] from [facility] for chief concern for hematuria. [...] below or in HPI [facility] Medical History Insomnia Hypothyroidism Hypertension [...] % (Auto) 4.2 % (.) 07/12/24 15:00 [place] % (Auto) 0.4 % (.) 07/12/24 15:00 Eos % (Auto) 1.3 % (.) 07/12/24 15:00 Baso % (Auto) 0.3 % (.) 07/12/24 15:00 Nucleat RBC Rel Count 0.2 /100 WBC (0-0.5) 07/12/24 15:00 Neut # (Auto) 6.3 x10E3/uL (1.8-7.7) 07/12/24 15:00 Lymph # (Auto) 0.3 x10E3/uL (1.00-4.8) L 07/12/24 15:00 [place] # (Auto) 0.0 x10E3/uL (0.0-0.8) 07/12/24 15:00 [...] Urine pH (5.0-9.0) 07/12/24 16:19 Ur Specific [place] 1.020 (1.001-1.030) 07/12/24 16:19 Urine Protein mg/dL [...] gout, cardiomyopathy, history of CHF, was sent [facility] ED from [facility] for chief concern for hematuria. [...] 1831 Signed By: <Electronically signed by Mario Jodran MD> 07/12/24 9287 [facility] Work Phone: 1(213) 200-342805-08-2025 Evaluation note* Diagnosis Onset Date Resolution Status Admit Date Atrial fibrillation acuteMay 2024 5:00pmBPH (benign prostatic hyperplasia)acuteMay 2024 5:00pmCHF exacerbationacuteMay 2024 5:00pmHematuriaacuteMay 2024 5:00pmHypertensionacuteMay 2024 5:00pmHypothyroidismacuteMay 2024 5:00pmHypoxiaacuteMay 2024 5:00pmSepsisacuteMay 2024 5:00pm [facility] Work Phone: 1([phone]) 111-507805-08-2025 Evaluation note* Diagnosis Onset Date Resolution Status Admit Date Abscess acuteMay 2024 5:00pmAbscess of left legacuteMay 2024 5:00pmAtrial fibrillationacuteMay 2024 5:00pmBacteremia due to EnterococcusacuteMay 2024 5:00pmBacteremia due to PseudomonasacuteMay 2024 5:00pmBPH (benign prostatic hyperplasia)acuteMay 2024 5:00pmCHF exacerbationacuteMay 2024 5:00pmComplicated UTI (urinary tract infection)acuteMay 2024 5:00pm HematuriaacuteMay 2024 5:00pmHypertensionacuteMay 2024 5:00pm HypothyroidismacuteMay 2024 5:00pmHypoxiaacuteMay 2024 5:00pmSepsis acuteMay 2024 5:00pm [facility] Work Phone: [phone] Evaluation note* Diagnosis Onset Date Resolution Status Admit Date Abscess resolvedMay 2024 5:00pmAbscess of left legresolvedMay 2024 5:00pm Atrial fibrillationresolvedMay 2024 5:00pmBacteremia due to Enterococcus resolvedMay 2024 5:00pmBacteremia due to PseudomonasresolvedMay 2024 5:00pmBPH (benign prostatic hyperplasia)2024 5:00pmCHF exacerbationresolvedMay 2024 5:00pmComplicated UTI (urinary tract infection)resolvedJuly 12, 2024 5:00pmHematuriaresolvedMay 2024 5:00pm HypertensionresolvedMay 2024 5:00pmHypothyroidismresolvedMay 2024 5:00pmHypoxiaresolvedMay 2024 5:00pmSepsisresolvedMay 2024 5:00pm [facility] Work Phone: 1([phone]) [phone] Evaluation note* Diagnosis Onset Date Resolution Status [...] painacuteJuly 2024 3:12pmSevere back painacuteJuly 2024 3:12pm [facility] Work Phone: [phone]) [phone] Evaluation note* Diagnosis Onset Date Resolution Status [...] 2024 3:12pmCatheter-associated urinary tract infectionacuteJuly 2024 1:51pm [facility] Work Phone: 1([phone]) 512-536505-08-2025 Evaluation note* Diagnosis Onset Date Resolution Status [...] 2024 9:13pmFallacuteAugust 2024 9:13pmIntracranial hemorrhageacuteAugust 2024 9:13pm [facility] Work Phone: 1(286) 325-794805-08-2025 Evaluation note* Diagnosis Onset Date Resolution Status [...] 7:05amFever acuteAugust 2024 7:05amIntracranial hemorrhageacuteAugust 2024 7:05am [facility] Work Phone: 1([phone]) 482-351705-08-2025 NotePatient Education Urology Hypospadias, Pediatric Hypospadias is [...] Follow these instructions at home: ??? Give [id number] and prescription medicines only as told by [...] Reviewed: 06/23/2020 Monisha Patient Education ? 2023 [facility] 07-11-2024 NoteThis is a Telehealth Appointment *This visit was conducted via Telehealth with real time interactive synchronized audio and video communication. The patient provided written consent for treatment. The patient understands their rights, the HIPAA risks and that they will be charged accordingly for the services rendered. The patient was seen via telemedicine while they were at: _[place] This telemedicinevisit was conducted due to: transport_ [...] February 24, extended through May 17, 2024 [facility] for UTI, doxycycline at present through [...] bivalent 12/24/2021 Recorded Comments (more content not included)...[facility]04-22-2025 NoteThis is a Telehealth Appointment *This visit was conducted via Telehealth with real time interactive synchronized audio and video communication. The patient provided written consent for treatment. The patient understands their rights, the HIPAA risks and that they will be charged accordingly for the services rendered. The patient was seen via telemedicine while they were at: _[place] This telemedicinevisit was conducted due to: transport_ [...] Substance Abuse Denies All (more content not included)...[facility]03-29-2025 Note Patient Education Urology Acute Urinary Retention, [...] these instructions at home: Medicines ??? Take cfor-fzs-fxivgwg and prescription medicines only as told by [...] Reviewed: 11/12/2020 Monisha Patient Education ? 2023 [employer]Channel.[facility] 05-10-2024 NoteThis is a Telehealth Appointment *This visit was conducted via Telehealth with real time interactive synchronized audio and video communication. The patient provided written consent for treatment. The patient understands their rights, the HIPAA risks and that they will be charged accordingly for the services rendered. The patient was seen via telemedicine while they were at: senior care This telemedicine visit was conducted due to: [...] the andre [1] he had surgery at [facility] in [place].Postoperatively gained a lot of fluid weight. Also has catheter for urinary retention. Has chronic lymphedema uses pumps at home. Admitted to [place] had MRI that showed fluid collection. History ofA-fib. Surgery was not done there due to need for cardiology services. Transferred to [facility] where he connected with cardiology. Actually [...] spent on se (more content not included)... [facility]02-20-2025 History of Present illness Narrative* Partha Gabriel, DPM - 04/26/2024 4:32 PM EST Tavo Byrd Jadynroel : 1940 [facility]: [facility] PCP:dr. aguirre Date last seen: [...] right foot Localized edema Decreased pedal pulses group home (current) use of anticoagulants Partha Gabriel DPM documented in [facility] Instructions* Patient Instructions* Partha Gabriel DPM - 04/26/2024 4:32 PM EST Pt not to attempt self care due to high risk. documented in this encounter[facility] NoteAdmission Information Patient: Tavo Wallis : 1940 Date of Admission: 04/15/2024 03:52:56 Date of Discharge: 04/20/24 Code Status: Full ResuscitationFull Resuscitation PCP: Tavo Mcintyre DO Consult: Celena HARGROVE, Frankie Hernandez; Moises TIDWELL, Crystal Byrd; Aletha TIDWELL, Tye Barrera; Lalo LECHUGA, Gustabo Sharpe; [facility], [place] Hospital Course : This is a 83 Years old Male with past medical history of heart failure with reduced ejection fraction, permanent A-fib, chronic kidney disease stage III AAA, hypothyroidism, chronic back pain with recent surgery about 2 months ago who was transferred from [facility] for wound dehiscence. The reason why patient was transferred was because of his extensive cardiac history and anesthesia at [facility] did not feel comfortable putting him under [...] I reviewed other provider notes. Discharge Location[facility] Discharge Time Spent with Patient: over [...] focal deficits. Psychiatric: Calm (more content not included)...[facility] 04-17-2024 NoteOperative Report DATE OF PROCEDURE: 04/17/2024 PREOPERATIVE DIAGNOSES: 1. 8-weeks status post lumbar decompression and noninstrumented fusion with postoperative fluid collection and wound dehiscence POSTOPERATIVE DIAGNOSES: 1. 8-weeks status post lumbar decompression and noninstrumented fusion with postoperative fluid collection and wound dehiscence OPERATION PERFORMED: 1. Lumbar I&D with wound closure SURGEON: Randi Burris MD BORING AND FILLING MACHINE OPERATOR: ALEXANDREA Corcoran PA-C assisted throughout the procedure [...] signed by Randi Burris MD 04/17/24 15:05 [facility]02-09-2025 NoteChief Complaint Wound dehiscence Reason for Consultation Lumbar wound dehiscence History of Present Illness The patient is a 83-year-old male who is status post lumbar decompression and noninstrumented fusion done 02/20/25 at [facility] with Dr. Man. He was admitted to [place] on Tuesday from office for lumbar I&D due to wound drainage and postoperative fluid collection on MRI. Anesthesia cancelled surgery due to LE swelling, elevated BNP and recent Echo in Feb, no cardiology on staff. He was transferred to [facility] yesterday for surgical clearance. c/o back [...] [facility] TIDWELL, Randi Mesa 04/17/2024 14:49 [facility] 04-15-2024 NotePatient seen and examined in AM. Chart reviewed and discussed plan of care with patient and his daughter at bedside. Notably patient had lumbar spine surgery done with Dr Burris, due to concerns for wound dehiscence he was transferred to inpatient hospital for debridement. Patient was transferredhere from [facility] as there was some concern for decompensated CHF, no cardiology service was present at [place] patient states he follows with cardiology?[facility] for appropriate clearance and restratification prior to orthopedic surgery. Near his [place] in [place]. He did receive appropriate cardiac clearance prior [...] signed by YordanJuan camara DO 04/15/24 11:09 [facility]02-09-2025 NoteAssessment/Plan Brief Hospital Course Summary: This [...] in our hospital Dr. [place]. Through [facility]. EKG performed patient has a known [...] Illness 83M presented as a transfer from [facility] for cardiac clearance the patient has been [...] time the patient was fluid overloaded at [place] currently he is not in our hospital the patient states that his left lower extremity is chronically erythematous which has beenongoing for the past several years likely from venous congestion. The patient has ejection ynzfsgge01% currently he is not on room air. [...] by Moises TIDWELL, Crystal Byrd 04/15/24 06:21 [facility] 03-14-2024 Progress note Author Michele Knight [facility] Date/TimeJanuary 2024 4:13[place] [address] Hospitalist Progress Note Signed Patient: Tavo Wallis Jr MR# : [id number] : 1940 Acct:[id number] Age/Sex: 83 / M Adm Date: 5 Loc: Room: [address] [place] [address] Type: ADM IN Attending Dr: Michele Knight [...] lumbar decompression surgery 2 weeks ago in [facility]. No complications otherwise. PT OT and pain [...] <Electronically signed by Michele Knight MD> 03/14/24 [facility] Work Phone: 1(369) 479-722001-08-2025 [place] [address] Hospitalist Progress Note Signed Patient: Tavo Wallis Jr MR# : [id number] : 1940 Acct:[id number] Age/Sex: 83 / M Adm Date: 5 Loc: 3T Room: [address] [place] [address] Type: ADM IN Attending Dr: Michele Knight [...] lumbar decompression surgery 2 weeks ago in [facility]. No complications otherwise. PT OT and pain [...] MD 03/14/24 0852 Signed By: 03/14/24 1613 [facility]01-08-2025 Hospital Discharge instructions Additional Instructions SNF [...] hours -Care to be managed by SNF providers.[facility] Work Phone: 1(242) 829-244601-07-2025 Progress note Author Michele Knight [facility] Date/TimeJanuary 2024 6:00pm[place] [address] Hospitalist Progress Note Signed Patient: Tavo Wallis Jr MR# : [id number] : 1940 Acct:[id number] Age/Sex: 83 / M Adm Date: 5 Loc: 3T Room: 4A7858-4 Type: ADM IN Attending Dr: Michele Knight [...] lumbar decompression surgery 2 weeks ago in [facility]. No complications otherwise. PT OT and pain [...] signed by Michele Knight MD> 03/13/24 1800 [facility] Work Phone: 1(432) 565-423301-07-2025 [place] [address] Hospitalist Progress Note Signed Patient: Tavo Wallis Jr MR# : [id number] : 1940 Acct:[id number] Age/Sex: 83 / M Adm Date: 5 Loc: 3T Room: [address] [place] [address] Type: ADM IN Attending Dr: Michele Knight [...] lumbar decompression surgery 2 weeks ago in [facility]. No complications otherwise. PT OT and pain [...] MD 03/13/24 1430 Signed By: 03/13/24 1800 [facility]01-06-2025 Progress note Author Michele Knight [facility] Hospital[facility] Date/TimeJanuary 2024 5:[place] [address] Hospitalist Progress Note Signed Patient: Tavo Wallis Jr MR# : [id number] : 1940 Acct:[id number] Age/Sex: 83 / M Adm Date: 5 Loc: 3T Room: [address] [place] [address] Type: ADM IN Attending Dr: Michele Knight [...] lumbar decompression surgery 2 weeks ago in [facility]. No complications otherwise. PT OT and pain [...] <Electronically signed by Michele Knight MD> 03/12/24 8130 [facility] Work Phone: 1(510) 407-852901-06-2025 [place] [address] Hospitalist Progress Note Signed Patient: Tavo Wallis Jr MR# : [id number] : 1940 Acct:[id number] Age/Sex: 83 / M Adm Date: 5 Loc: 3T Room: [address] [place] [address] Type: ADM IN Attending Dr: Michele Knight [...] lumbar decompression surgery 2 weeks ago in [facility]. No complications otherwise. PT OT and pain [...] Knight MD 03/12/241705 Signed By: 03/12/24 1712 [facility]01-05-2025 Progress note Author Mitchell Reyes [facility] Date/TimeJanuary 2024 12:33pm [place] [address] Hospitalist Progress Note Signed Patient: Tavo Wallis Jr MR# : [id number] : 1940 Acct:[id number] Age/Sex: 83 / M Adm Date: 5 Loc: Room: [address] [place] [address] Type: ADM IN Attending Dr: Mitchell Reyes [...] lumbar decompression surgery 2 weeks ago in [facility]. No complications otherwise. PT OT and pain [...] Tablet PO 03/11/25 09:24 1 mg BID ANIABL Administration Carvedilol 3.125 mg 03/10/24 21:00 03/11/24 [...] Tablet PO 03/11/25 06:29 Not Given DAILY@0630 [facility] Eszopiclone 3 Mg 3 mg 03/10/24 22:00 [...] signed by Mitchell Reyes MD> 03/11/24 1233 [facility] Work Phone: 1(899) 160-673501-05-2025 [place] [address] Hospitalist Progress Note Signed Patient: Tavo Wallis Jr MR# : [id number] : 1940 Acct:[id number] Age/Sex: 83 / M Adm Date: 5 Loc: Room: [address] [place] [address] Type: ADM IN Attending Dr: Mitchell Reyes [...] lumbar decompression surgery 2 weeks ago in [facility]. No complications otherwise. PT OT and pain [...] Tablet PO 03/11/25 06:29 Not Given DAILY@0630 [facility] Eszopiclone 3 Mg 3 mg 03/10/24 22:00 [...] MD 03/11/24 1231 Signed By: 03/11/24 1233 [facility]01-04-2025 History and physical note Author Mitchell Reyes [facility] Date/TimeJanuary 2024 3:49[place] [id number] Hospitalist H&P Signed Patient: Tavo Wallis Jr MR# : [id number] : 1940 Acct:[id number] Age/Sex: 83 / M Adm Date: 5 Loc: 3T Room: [address] [place] [address] Type: ADM IN Attending Dr: Mitchell Reyes MD Copies to: MD Opal Peters,DO~ HPI DATE OF EXAMINATION: 03/10/24 HISTORY OF PRESENT ILLNESS: Patient is a 89-year-old male, who was well until approximately 2 weeks ago, when he underwent spinal decompression surgery in [facility] about 2 weeks prior to presentation. He [...] pressure measured ultrasonographically is fairly normal at ykaiym30 cc water. LV contractility is slightly decreased. [...] apnea Obesity class I [facility] Medical History Insomnia Hypothyroidism Hypertension [...] % (Auto) 11.9 % (.) 03/10/24 10:00 [place] % (Auto) 9.2 % (.) 03/10/24 10:00 Eos % (Auto) 5.9 % (.) 03/10/24 10:00 Baso % (Auto) 1.4 % (.) 03/10/24 10:00 Nucleat RBC Rel Count 0.0 /100 WBC (0-0.5) 03/10/24 10:00 Neut # (Auto) 6.1 x10E3/uL (1.8-7.7) 03/10/24 10:00 Lymph # (Auto) 1.0 x10E3/uL (1.00-4.8) 03/10/24 10:00 [place]ola # (Auto) 0.8 x10E3/uL (0.0-0.8) 03/10/24 10:00 [...] signed by Mitchell Reyes MD> 03/10/24 1549 [facility] Work Phone: 1(552) 622-816101-04-2025 [place] [address] Hospitalist H&P Signed Patient: Tavo Wallis Jr MR# : [id number] : 1940 Acct:[id number] Age/Sex: 83 / M Adm Date: 5 Loc: Room: [address] [place] [address] Type: ADM IN Attending Dr: Mitchell Reyes MD Copies to: MD Opal Peters,DO~ HPI DATE OF EXAMINATION: 03/10/24 HISTORY OF PRESENT ILLNESS: Patient is a 89-year-old male, who was well until approximately 2 weeks ago, when he underwent spinal decompression surgery in [facility] about 2 weeks prior to presentation. He [...] pressure measured ultrasonographically is fairly normal at ztledf45 cc water. LV contractility is slightly decreased. [...] apnea Obesity class I [facility] Medical History Insomnia Hypothyroidism Hypertension [...] % (Auto) 11.9 % (.) 03/10/24 10:00 [place] % (Auto) 9.2 % (.) 03/10/24 10:00 Eos % (Auto) 5.9 % (.) 03/10/24 10:00 Baso % (Auto) 1.4 % (.) 03/10/24 10:00 Nucleat RBC Rel Count 0.0 /100 WBC (0-0.5) 03/10/24 10:00 Neut # (Auto) 6.1 x10E3/uL (1.8-7.7) 03/10/24 10:00 Lymph # (Auto) 1.0 x10E3/uL (1.00-4.8) 03/10/24 10:00 [place] # (Auto) 0.8 x10E3/uL (0.0-0.8) 03/10/24 10:00 [...] MD 03/10/24 1349 Signed By: 03/10/24 1549 [facility]01-04-2025 Evaluation note* Diagnosis Onset Date Resolution Status Admit Date LIS (acute kidney injury) acuteJanuary 2024 11:26amCOVID-19acuteJanuary 2024 11:26amFatigueacute Eliza 2024 11:26am [facility] Work Phone: 1(476) 192-199012-23-2024 History of Present illness Narrative* Randa King [...] a supine position. COVID-19 & Influenza Combo [[id number]] Collected: 02/25/24 1109 Updated: 02/25/24 1153 Specimen Source: Nasopharyngeal Swab SARS-CoV-2 RNA, RT PCR NOT DETECTED Comment: Influenza A NOT DETECTED Influenza B NOT DETECTED Lactic Acid, Sepsis 1.0 XR CHEST PORTABLE [[id number]] Collected: 02/24/242041 Updated: 02/24/242142 Narrative: 1 view chest x-ray Comparison: None Findings: Lzdrwwau-bk-cidykb cardiomegaly. Small left and trace right pleural effusions. Cephalization pulmonary vasculature with diffusely increased interstitial markings and diffuse hazy alveolar opacity. No pneumothorax. Impression: 1. Wcptaozc-vp-iszops cardiomegaly with pulmonary edema and pleural effusions. 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 Full Roll Inspector Goals Time Frame for Alf Goals : N/A due to ELOS Following [...] a supine position. COVID-19 & Influenza Combo [[id number]] Collected: 02/25/24 1109 Updated: 02/25/24 1153 Specimen Source: Nasopharyngeal Swab SARS-CoV-2 RNA, RT PCR NOT DETECTED Comment: Influenza A NOT DETECTED Influenza B NOT DETECTED Lactic Acid, Sepsis 1.0 XR CHEST PORTABLE [[id number]] Collected: 02/24/242041 Updated: 02/24/242142 Narrative: 1 view chest x-ray Comparison: None Findings: Vnnbjdws-dl-csctig cardiomegaly. Small left and trace right pleural effusions. Cephalization pulmonary vasculature with diffusely increased interstitial markings and diffuse hazy alveolar opacity. No pneumothorax. Impression: 1. Uxxembvi-vo-ziwuwt cardiomegaly with pulmonary edema and pleural effusions. [...] Steele OTA - 02/26/2024 1:58 PM EST [facility] ICU STEPDOWN TELEMETRY 4K Occupational Therapy Daily Note Discharge Recommendations: Continue to assess pending progress, ECF with OT, and Patient would benefit from continued OT at discharge Equipment Recommendations: No continue to monitor Time In: 1316 Time Out: 1357 Timed Code Treatment Minutes: 41 Minutes Minutes: 41 Date: 02/26/2024 Patient Name: Tavo Wallis, Gender: male Room: [address] [place] [address] : 1940 (83 y.o.) Referring Practitioner: Randi [...] in the past year?: Yes (~5) Active Block Breaker Operator: Yes (Daughter able to transport until cleared to drive again.) Mode of Transportation: Truck 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 Alf Goals Time Frame for Full Roll Inspector Goals : None due to ELOS Following session, patient left in safe position with all fall risk precautions in place. 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 Functional Outcome Measures: [facility] (6 CLICK) BASIC MOBILITY AM-[facility] Inpatient Mobility Raw Score : 13 AM-[facility] Inpatient T-Scale Score : 36.74 Modified Wadsworth Scale: Not Applicable ASSESSMENT: Assessment: fair progression, [...] Supervision in orderto assist with home entry. Alf Goals Time Frame for Alf Goals : N/A due to ELOS Following [...] examined independently by me. Agree with Physician vegetable farmworker note above. Discussed w/ patient's daughter. Continue [...] a supine position. COVID-19 & Influenza Combo [[id number]] Collected: 02/25/24 1109 Updated: 02/25/24 1153 Specimen Source: Nasopharyngeal Swab SARS-CoV-2 RNA, RT PCR NOT DETECTED Comment: Influenza A NOT DETECTED Influenza B NOT DETECTED Lactic Acid, Sepsis 1.0 XR CHEST PORTABLE [[id number]] Collected: 02/24/242041 Updated: 02/24/242142 Narrative: 1 view chest x-ray Comparison: None Findings: Rwkcfhqh-ja-peufyz cardiomegaly. Small left and trace right pleural effusions. Cephalization pulmonary vasculature with diffusely increased interstitial markings and diffuse hazy alveolar opacity. No pneumothorax. Impression: 1. Gtwltxeo-gp-axigmh cardiomegaly with pulmonary edema and pleural effusions. [...] Russell SLP - 02/25/2024 1:24 PM EST [facility] SPEECH THERAPY STRZ ICU STEPDOWN TELEMETRY 4K Clinical Swallow Evaluation + Dysphagia Therapy Discharge Recommendations: Home with Home Exercise Program DIET ORDER RECOMMENDATIONS AFTER EVALUATION: Regular, thin liquids Strategies: Full Upright Position, Small Bite/Sip, Pulmonary Monitoring, Alternate Solids and Liquids, Limit Distractions, and Monitor for Fatigue MUTUAL FUND ANALYST Individual Minutes Time In: 930 Time Out: 947 Minutes: 17 Timed Code Treatment Minutes: 0 Minutes CSE: 9 minutes Dysphagia Therapy: 8 minutes Date: 02/25/2024 Patient Name: Tavo Wallis CSN: [id number] : 1940 (83 y.o.) Gender: male Referring Physician: Randa King MD Diagnosis: Lumbar stenosis with neurogenic claudication History of Present Illness/Injury: Patient admitted to [facility] for above dx. Per chart review, The [...] Evaluation of Education: Verbalizes understanding PLAN: Skilled MUTUAL FUND ANALYST intervention on acute care 1-3 x per [...] assist with mobility and overall pulmonary health CUSTODIAL GOALS: No LTGs established due to short ELOS. Lula Russell M.A., [facility]-MUTUAL FUND ANALYST [id number] * Gustabo May PA - 02/25/2024 8:05 [...] Solorio, OT - 02/24/2024 2:07 PM EST [facility] ICU STEPDOWN TELEMETRY 4K Occupational Therapy Daily Note Discharge Recommendations: Subacute/halfway facility Equipment Recommendations: No continue to monitor Time In: 830 Time Out: 908 Timed Code Treatment Minutes: 38 Minutes Minutes: 38 Date: 02/24/2024 Patient Name: Tavo Wallis, Gender: male Room: [address] [place] [address] : 1940 (83 y.o.) Referring Practitioner: Randi [...] in the past year?: Yes (~5) Active Block Breaker Operator: Yes (Daughter able to transport until cleared to drive again.) Mode of Transportation: Truck 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 Functional Outcome Measures: [facility] (6 CLICK) BASIC MOBILITY AM-[facility] Inpatient Mobility Raw Score : 14 AM-[facility] Inpatient T-Scale Score : 38.1 Modified [...] Supervision in orderto assist with home entry. Alf Goals Time Frame for Alf Goals : N/A due to ELOS Following [...] EST Spiritual Health History and Assessment/Progress Note [facility] Loneliness/Social Isolation, , , Name: Tavo Wallis Age: 83 y.o. Sex: male Language: Australian Sikh: None Lumbar stenosis with neurogenic claudication Date: 02/23/2024 Total Time Calculated: (P) 8 min [facility]LE[facility]K Referral/Consult From: Nurse [...] Therapy just started working with patient. Will mi'kmaq back to complete echo once therapy is completed. * Mimi Solo OT - 02/23/2024 10:29 AM EST [facility] ICU STEPDOWN TELEMETRY 4K Occupational Therapy Daily Note Discharge Recommendations: ECF with OT and 24 hour assistance or supervision Equipment Recommendations: No continue to monitor Time In: 1029 Time Out: 1053 Timed Code Treatment Minutes: 24 Minutes Minutes: 24 Date: 02/23/2024 Patient Name: Tavo Wallis, Gender: male Room: [address] [place] [address] : 1940 (83 y.o.) Referring Practitioner: Randi [...] in the past year?: Yes (~5) Active Block Breaker Operator: Yes (Daughter able to transport until cleared to drive again.) Mode of Transportation: Truck 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 Modified Wadsworth Scale: Not Applicable ASSESSMENT: Activity Tolerance: Patient [...] with SBA to complete sink side grooming. Alf Goals Time Frame for Alf Goals : None due to ELOS Following session, patient left in safe position with all fall risk precautions in place. 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 Functional Outcome Measures: [facility] (6 CLICK) BASIC MOBILITY [facility] Inpatient Mobility Raw Score : 14 [facility] Inpatient T-Scale Score : 38.1 Modified [...] Supervision in orderto assist with home entry. Full Roll Inspector Goals Time Frame for Full Roll Inspector Goals : N/A due to ELOS Following [...] and alert, cooperative. 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 Alf Goals Time Frame for Full Roll Inspector Goals : N/A due to ELOS Following session, patient left in safe position with all fall risk precautions in place. 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, use of cane mainly and uses various [...] to visually scan in room for targets [facility] Inpatient Daily Activity Raw Score: 14 [facility] Inpatient ADL T-Scale Score : 33.39 ADL Inpatient CMS 0-100% Score: 59.67 Activity Tolerance: Patient tolerance of treatment: Good treatment tolerance, Limited by fatigue, Limited by medical complications, and Reduced activity pace Functional Outcome Measures: [facility] Inpatient Daily Activity Raw Score: 14 [facility] Inpatient ADL T-Scale Score : 33.39 ADL Inpatient CMS 0-100% Score: 59.67 ADL Inpatient CMS G-Code Modifier : CK Modified [place]: Premorbid Functional Status: Not Applicable Current Functional [...] with SBA to complete sink side grooming. Alf Goals Time Frame for Full Roll Inspector Goals : None due to ELOS [facility] In[facility] Daily [facility]: [facility] T-Scale Score : 33.39 Following [...] and alert, cooperative. States he is at [facility] for back surgery, knows his surgeons [...] sat 77% on 6L NC. Respirations labored. CUSTOM FEED MILL OPERATOR HELPER at pt bedside and placed NPA in [...] with eyes closed comfortably. VSS. 1745: Called [facility] to have nurse update family about room number and that room was awaiting to be cleaned. Stat clean placed on room 1810: Repositioned patient at this time and provided more water, tolerated well 182: Pt resting off and on with eyes closed, easily awakens to voice. 1830: [facility] called pacu for update per family request, update given that pt continuing to await room to finish cleaning 185: Called family to update of patients room being ready and patient being in for transport 185: Emptied 150mls from hemovac drain 185: Pt transported to in stable condition. VSS * Karen Ambrocio RN - 02/21/2024 7:57 AM EST Patient admitted to [facility] room 3 with family at bedside. Bed in low position side rails up call lightin reach. Patient denies questions at this time. Abigail (daughter) [phone] * Edilma Abdul RN - 02/20/2024 9:01 AM EST Called for clearance from Dr Mcintyre * Edilma Abdul RN - 02/15/2024 12:11 PM EST Called [facility] medical records for labs, CXR, EKG and any other testing pt has done for surgery. Had to leave message * Edilma Abdul RN - 02/15/2024 9:57 AM EST PAT call attempted, patient unavailable, left message to please call us back at your earliest convenience; [phone] * Edilma Abdul RN - 02/14/2024 3:[address] Burris for labs, EKG, clearance, and CXR documented in this encounterBon [facility] Discharge instructions* Discharge Instructions* Gustabo May [...] already scheduled for an appointment - ext [phone] If any concerning symptoms, such as calf [...] at most local grocery stores, pharmacies, and [employer]. If you have any questions about your [...] directive for healthcare treatment Durable power of trademark attorney for health care;Living will Yes, copy in chart -- -- -- Admitting Physician: Randi Burris MD PCP: Opal Ga DO Discharging Nurse: Discharging Hospital Unit/Room#: 4K-25/025-A Discharging Unit Phone Number: Emergency Contact: Extended Emergency Contact Information Primary Emergency Contact: DamiannixonNicole Mobile Relation: Child Box Office Agent needed? No Past Surgical History: Past Surgical History: Procedure Laterality Date BACK SURGERY x2 lumbar area EYE SURGERY Bilateral catract JOINT REPLACEMENT Bilateral both kness, left hip, both shoulders rotator cuff, LUMBAR FUSION N/A 02/21/2024 L2-5 Decompression and Non Instrumented Fusion performed by Randi Burris MD at [facility] OR Immunization History: Immunization History [...] Assisted Dressing Assisted Toileting Assisted Feeding Assisted Gate Clerk Assisted Med Delivery whole Wound Care Documentation [...] Status Date: 02/22/2024 Readmission Risk Assessment Score: [facility] RISK OF UNPLANNED READMISSION 2.0 15.2 Total Score Discharging to Facility/ Agency Name: [facility] Address: [address] [place] [address] Dialysis Facility (if applicable) Name: Address: Dialysis Schedule: Phone: Fax: Fitness Worker/Lumber Chain Offbearer signature: PHYSICIAN SECTION Prognosis: Good Condition at Discharge: Stable Rehab Potential (if transferring to Rehab): Good Recommended Labs or Other Treatments After Discharge: complete course of antibiotic, PT/OT Physician Certification: I certify the above information and transfer of Tavo Wallis is necessary for the continuing treatment of the diagnosis listed and that he requires Senior Care Facility for less 30 days. Update Admission H&P: No change in H&P PHYSICIAN SIGNATURE: documented in this encounterBon [facility] History of Present illness Narrative* Tavo Mcintyre, [...] 2 3. Chronic atrial fibrillation (Multi) 4. group home current use of anticoagulant therapy 5. [...] exam, discussion and plan. [facility] Work Phone: 1(569) 954-714912-12-2024 Instructions* Patient Instructions* Viridiana Walden LPN - [...] from a cardiac standpoint documented in [facility]Ohio[facility] Work Phone: 1(102) 423-640512-09-2024 Evaluation note* Author [facility]anna [facility]gar [facility] 2023 9:28amThe above note written by Danna Melgar LPN, acting as human recorder, note dictated by Dr. Opal Ga. [facility] Work Phone: 1(885) 354-217005-08-2024 History of Present illness Narrative* Tavo Myranda DO Francisco Javier - 07/13/2023 9:40 AM EDT Subjective Tavo Wallis is a 82 y.o. male Chief Complaint Annual Exam 82-year-old gentleman returns for follow-up. He is doing well from a cardiovascular standpoint he is debilitated by his significant osteoarthritis, recent peripheral nerve/ablations performed at [facility] this past year. He has persistent [...] exam, discussion and plan. documented in [facility]Ohio[facility] Work Phone: 1(172) 735-405205-08-2024 Instructions* Patient Instructions* Hermilo Bell MA - [...] Fall Prevention Education Given documented in [facility]Ohio[facility] Work Phone: 1(640) 537-323901-12-2024 Evaluation note* Encounter Date Diagnosis Assessment Notes Treatment Notes Treatment Clinical Notes Mar, Lumbar degenerative disc disease (ICD-10 - M51.36) Patient is following with pain management at [place], had a recent branch block. He is [...] above medication. We will continue to monitor. [facility] Other 10-02-2023 Evaluation note* Encounter Date Diagnosis Assessment Notes Treatment Notes Treatment Clinical Notes Dec, Insomnia (ICD-10 - G47.00) [facility] Other 09-26-2023 Evaluation note* Encounter Date Diagnosis Assessment Notes Treatment Notes Treatment Clinical Notes Nov, Gout (ICD-10 - M10.9) [facility] Other 07-12-2023 Evaluation note* Encounter Date Diagnosis [...] the care of pain management out of [place]. States the pain is slightly improved and [...] to thin out the secretions. Rx sent [facility] Other 07-05-2023 Evaluation note* Encounter Date Diagnosis Assessment Notes Treatment Notes Treatment Clinical Notes Sep, Hyperlipidemia (ICD-10 - E78.5) Sep,Insomnia (ICD-10 - G47.00) Sep,Hypothyroidism, unspecified (ICD-10 - E03.9) [facility] Other 04-03-2023 Evaluation note* Encounter Date Diagnosis Assessment Notes Treatment Notes Treatment Clinical Notes Jun, Lumbar degenerative disc disease (ICD-10 - M51.36) I am in agreement the patient keep the above medication on hand to use sparingly for back pain and to continue following with Pain Management. The patient states he does still go to the [facility] for [facility] trips with a group [...] Jun,Screening for prostate cancer (ICD-10 - Z12.5) [facility] Other 03-28-2023 Evaluation note* Encounter Date Diagnosis Assessment Notes Treatment Notes Treatment Clinical Notes May, Insomnia (ICD-10 - G47.00) [facility] Other 03-07-2023 Evaluation note* Encounter Date Diagnosis Assessment Notes Treatment Notes Treatment Clinical Notes May, Atrial fibrillation (ICD-10 - I4 8.91) [facility] Other 02-09-2023 NoteCONSULTATION CONSULTATION DATE: 04/15/2022 HISTORY [...] in the clinic in three months' time.[id number] Evaluation note* Encounter Date Diagnosis Assessment Notes [...] wear a hat out in the sun. [facility] Other 12-29-2022 Evaluation note* Encounter Date Diagnosis Assessment Notes Treatment Notes Treatment Clinical Notes Feb, Insomnia (ICD-10 - G47.00) Feb,Hypothyroidism, unspecified (ICD-10 - E03.9) [facility] Other 12-28-2022 Evaluation note* Encounter Date Diagnosis Assessment Notes Treatment Notes Treatment Clinical Notes Feb, Insomnia (ICD-10 - G47.00) Feb,Hypothyroidism, unspecified (ICD-10 - E03.9) [facility] Other 12-15-2022 NoteCONSULTATION CONSULTATION DATE: 02/18/2022 HISTORY [...] move forward with the plan of care.[facility] [id number] Evaluation note* Encounter Date Diagnosis Assessment Notes Treatment Notes Treatment Clinical Notes Feb, Lumbar degenerative disc disease (ICD-10 - M51.36) Daughter feels that patient was doing quite well while he was getting daily PT at [facility], however now that he has [...] upon examination, continue using the above powder. [facility] Other 11-11-2022 Progress note Author Raji [facility] January 15, 2022 4:51pmNote Date/TimeNov2021 4:51pm[place] [address] Hospitalist Progress Note Signed Patient: Tavo Wallis Jr MR# : [id number] : 1940 Acct:[id number] Age/Sex: 81 / M Adm Date: 2 Loc: 3T Room: [address] [place] [address] Type: ADM IN Attending Dr: Raji Ennis [...] Propionate 1 spray 01/09/22 15:17 Fluticasone Propionate [place] 120 [place]/16 Gm Bottle NARES-BOTH 01/09/23 15:16 QHS PRN [...] tomorrow. Documented By: Raji Ennis MD 01/15/22 7224 Signed By: <Electronically signed by Raji Ennis MD> 01/15/22 1651 [facility] Work Phone: 1(801) 582-220911-11-2022 Progress note Author Frankie Reynolds [facility] January 15, 2022 12:21pmNote Date/TimeNov2021 12:21pm[place] [address] Infect. Disease Progress Note Signed Patient: Tavo Wallis Jr MR# : [id number] : 1940 Acct:[id number] Age/Sex: 81 / M Adm Date: 2 Loc: Room: 8R0595-1 Type: ADM IN Attending Dr: Raji Ennis [...] 300 Mg Tablet) 300 mg PO DAILY [facility] Stop: 01/10/23 08:59 Last Admin: 01/15/22 08:46 Dose: 300 mg Apixaban (Apixaban 5 Mg Tablet) 5 mg PO BID [facility] Stop: 01/09/23 20:59 Last Admin: 01/15/22 [...] 1 Mg Tablet) 1 mg PO DAILY@0800 [facility] Stop: 01/14/23 15:59 Last Admin: 01/15/22 08:46 Dose: 1 mg Docusate Sodium (Docusate 100 Mg Capsule) 100 mg PO BID [facility] Stop: 01/09/23 20:59 Last Admin: 01/15/22 08:46 Dose: 100 mg Fluticasone Propionate (Fluticasone Propionate [place] 120 [place]/16 Gm Bottle) 1 spray NARES-BOTH QHSPRN PRN Reason: Nasal Congestion Stop: 01/09/23 15:16 Magnesium Sulfate (Magnesium Sulf 2gm-*Swfi*) 2 gm in 50 mls @ 25 mls/hr IV DAILY PRN PRN Reason: Magnesium Level < 1.5 Stop: 01/09/23 14:40 Levothyroxine Sodium (Levothyroxine 150 Mcg Tablet) 150 mcg PO DAILY@0630 [facility] Stop: 01/10/23 06:29 Last Admin: 01/15/22 [...] 3 Mg (Tablet) 3 mg PO HS [facility] Stop: 01/11/23 21:59 Last Admin: 01/14/22 21:32 Dose: 3 mg Nystatin (Nystatin 100,000 Unit/Gram Powder 15 Gm Bottle) 1 applic TOPICAL TID [facility] Stop: 01/09/23 21:59 Last Admin: 01/15/22 [...] 20 Meq Tab.Er.Prt) 20 meq PO QPM [facility] Stop: 01/09/23 20:59 Last Admin: 01/14/22 [...] signed by MD Frankie Reynolds> 01/15/22 1221 [facility] Work Phone: 1(100) 364-481511-10-2022 Progress note Author Raji Ennis [facility] January 14, 2022 5:43pmNote Date/TimeNov2021 5:43pm[place] [address] Hospitalist Progress Note Signed Patient: Tavo Wallis Jr MR# : [id number] : 1940 Acct:[id number] Age/Sex: 81 / M Adm Date: 2 Loc: Room: [address] [place] [address] Type: ADM IN Attending Dr: Raji Ennis [...] Propionate 1 spray 01/09/22 15:17 Fluticasone Propionate [place] 120 [place]/16 Gm Bottle NARES-BOTH 01/09/23 15:16 QHS PRN [...] 21:17 Dextrose IV 01/14/22 23:59 Infused Q24H [facility] Infusion Levothyroxine Sodium 150 mcg 01/10/22 06:30 01/14/22 05:54 Levothyroxine 150 Mcg Tablet PO 01/10/23 06:29 150 mcg DAILY@0630 [facility] Administration Magnesium Hydroxide 30 ml 01/09/22 [...] <Electronically signed by Raji Ennis MD> 01/14/221742 [facility] Work Phone: [phone]) 353-948111-10-2022 Progress note Author Frankie Reynolds [facility] January 14, 2022 9:39amNote Date/TimeNov2021 9:39am[place] [address] Infect. Disease Progress Note Signed Patient: Tavo Wallis Jr MR# : [id number] : 1940 Acct:[id number] Age/Sex: 81 / M Adm Date: 2 Loc: Room: [address] [place] [address] Type: ADM IN Attending Dr: Raji Ennis [...] Appearance Clear Urine pH 5.5 Ur Specific [place] 1.012 Urine Protein 30 H Urine Glucose [...] 300 Mg Tablet) 300 mg PO DAILY [facility] Stop: 01/10/23 08:59 Last Admin: 01/14/22 08:04 Dose: 300 mg Apixaban (Apixaban 5 Mg Tablet) 5 mg PO BID [facility] Stop: 01/09/23 20:59 Last Admin: 01/14/22 08:04 [...] 1 Mg Tablet) 1 mg PO BID@0800,1600 [facility] Stop: 01/13/23 15:59 Docusate Sodium (Docusate 100 Mg Capsule) 100 mg PO BID [facility] Stop: 01/09/23 20:59 Last Admin: 01/14/22 08:03 Dose: 100 mg Fluticasone Propionate (Fluticasone Propionate [place] 120 [place]/16 Gm Bottle) 1 spray NARES-BOTH QHSPRN PRN Reason: Nasal Congestion Stop: 01/09/23 15:16 Magnesium Sulfate (Magnesium Sulf 2gm-*Swfi*) 2 gm in 50 mls @ 25 mls/hr IV DAILY PRN PRN Reason: Magnesium Level < 1.5 Stop: 01/09/23 14:40 Cefepime HCl (Maxipime) 2 gm in 50 mls @ 100 mls/hr IV Q12H [facility] Last Admin: 01/14/22 03:05 Dose: 100 mls/hr Vancomycin HCl 1.25 gm/ (Dextrose) 275 mls @ 183.333 mls/hr IV Q24H [facility] Stop: 01/13/23 18:59 Last Infusion: 01/13/22 21:17 Dose: Infused Levothyroxine Sodium (Levothyroxine 150 Mcg Tablet) 150 mcg PO DAILY@0630 [facility] Stop: 01/10/23 06:29 Last Admin: 01/14/22 05:54 Dose: 150 mcg Magnesium Hydroxide (Magnesium Hydroxide Susp 30 Ml Udc) 30 ml PO BID PRN PRN Reason: Constipation Stop: 01/09/23 14:40 Magnesium Oxide (Magnesium Oxide 400 Mg Tablet) 400 mg PO DAILY [facility] Stop: 01/10/23 08:59 Last Admin: 01/14/22 08:04 Dose: 400 mg Nitroglycerin (Nitroglycerin 0.4 Mg Tab.Subl) 0.4 mg SUBLINGUAL Q5MIN.X3 PRN PRN Reason: Chest Pain Stop: 01/09/23 14:40 Pom Eszopiclone 3 Mg (Tablet) 3 mg PO HS [facility] Stop: 01/11/23 21:59 Last Admin: 01/13/22 21:27 Dose: 3 mg Nystatin (Nystatin 100,000 Unit/Gram Powder 15 Gm Bottle) 1 applic TOPICAL TID [facility] Stop: 01/09/23 21:59 Last Admin: 01/14/22 [...] By: <Electronically signed by MD Frankie Reynolds> 01/14/2237 [facility] Work Phone: 1(754) 182-362711-09-2022 Progress note Author Mani Dickens [facility] January 13, 2022 6:10pmNote Date/TimeNov2021 8:13[place] [id number] Neurology Progress Note Signed with Addenda Patient: Tavo Wallis Jr MR# : [id number] : 1940 Acct:[id number] Age/Sex: 81 / M Adm Date: 2 Loc: Room: [address] [place] [address] Type: ADM IN Attending Dr: Raji Ennis [...] extremities * Unable to test finger-nose or jnxi-dk-[id number] due to drowsiness REFLEX EXAM: * 1/4 [...] Recommendations: OT Recommendations OT Recommended Discharge Senior Care Facility Location OT Recommended Services at Physical Therapy,Occupational Therapy Discharge PT Recommendations PT Recommended Discharge Senior Care Facility Location PT Recommended Services at Physical [...] the head and spine were unrevealing. Dr. eSsar Calvillo did the operation. They were told [...] <Electronically signed by MEI Knight> 01/13/22 1520 [facility] Work Phone: 1(149) 165-976211-09-2022 Progress note Author Raji [facility] January 13, 2022 3:44pmNote Date/TimeNovember 2021 3:27pm[place] [address] Hospitalist Progress Note Signed Patient: Tavo Wallis MR# : [id number] : 1940 Acct:[id number] Age/Sex: 81 / M Adm Date: 2 Loc: 3T Room: [address] [place] [address] Type: ADM IN Attending Dr: Raji Ennis [...] 1 Mg Tablet PO 01/13/23 15:59 BID@0800,1600 [facility] Docusate Sodium 100 mg 01/09/22 21:00 01/13/22 09:43 Docusate 100 Mg Capsule PO 01/09/23 20:59 100 mg BID [facility] Administration Fluticasone Propionate 1 spray 01/09/22 15:17 Fluticasone Propionate [place] 120 [place]/16 Gm Bottle NARES-BOTH 01/09/23 15:16 QHS PRN [...] signed by Raji Ennis MD> 01/13/22 1544 [facility] Work Phone: 1([phone]) 926-469411-09-2022 Consult note Author Frankie Reynolds [facility] January 13, 2022 10:45amNote Date/TimeNovember 2021 10:45am[place] [id number] Infect. Disease Consult Note Signed Patient: Tavo Wallis Jr MR# : [id number] : 1940 Acct:[id number] Age/Sex: 81 / M Adm Date: 2 Loc: 3T Room: [address] [place] [address] Type: ADM IN Attending Dr: Raji Ennis [...] below or in HPI [facility] Attestation Statement: The following information [...] Mg/4 Ml Vial) 1 mg IV-PUSH BID@0800,1600 [facility] Stop: 01/13/23 07:59 Last Admin: 01/13/22 09:43 Dose: 1 mg Docusate Sodium (Docusate 100 Mg Capsule) 100 mg PO BID [facility] Stop: 01/09/23 20:59 Last Admin: 01/13/22 09:43 Dose: 100 mg Fluticasone Propionate (Fluticasone Propionate [place] 120 [place]/16 Gm Bottle) 1 spray NARES-BOTH QHSPRN PRN Reason: Nasal Congestion Stop: 01/09/23 15:16 Magnesium Sulfate (Magnesium Sulf 2gm-*Swfi*) 2 gm in 50 mls @ 25 mls/hr IV DAILY PRN PRN Reason: Magnesium Level < 1.5 Stop: 01/09/23 14:40 Cefepime HCl (Maxipime) 2 gm in 50 mls @ 100 mls/hr IV Q12H [facility] Last Admin: 01/13/22 03:07 Dose: 100 mls/hr Levothyroxine Sodium (Levothyroxine 150 Mcg Tablet) 150 mcg PO DAILY@0630 [facility] Stop: 01/10/23 06:29 Last Admin: 01/13/22 06:26 Dose: 150 mcg Magnesium Hydroxide (Magnesium Hydroxide Susp 30 Ml Udc) 30 ml PO BID PRN PRN Reason: Constipation Stop: 01/09/23 14:40 Magnesium Oxide (Magnesium Oxide 400 Mg Tablet) 400 mg PO DAILY [facility] Stop: 01/10/23 08:59 Last Admin: 01/13/22 09:43 Dose: 400 mg Nitroglycerin (Nitroglycerin 0.4 Mg Tab.Subl) 0.4 mg SUBLINGUAL Q5MIN.X3 PRN PRN Reason: Chest Pain Stop: 01/09/23 14:40 Pom Eszopiclone 3 Mg (Tablet) 3 mg PO HS [facility] Stop: 01/11/23 21:59 Last Admin: 01/12/22 22:51 Dose: 3 mg Nystatin (Nystatin 100,000 Unit/Gram Powder 15 Gm Bottle) 1 applic TOPICAL TID [facility] Stop: 01/09/23 21:59 Last Admin: 01/13/22 [...] <Electronically signed by MD Frankie Reynolds> 01/13/22 104 [facility] Work Phone: 1(814) 272-785411-08-2022 Progress note Author W Be Mcintyre [facility] January 12, 2022 6:11pmNote Date/TimeNov2021 6:11pm[place] [address] Cardiology Progress Note Signed Patient: Tavo Wallis Jr MR# : [id number] : 1940 Acct:[id number] Age/Sex: 81 / M Adm Date: 2 Loc: Room: [address] [place] [address] Type: ADM IN Attending Dr: Raji Ennis [...] % (Auto) 76.3 Lymph % (Auto) 12.2 [place] % (Auto) 9.1 Eos % (Auto) 1.9 Baso % (Auto) 0.5 Neut # (Auto) 7.7 Lymph # (Auto) 1.2 [place] # (Auto) 0.9 H Eos # (Auto) [...] 2.9 Globulin (PEP) 2.4 Albumin/Globulin (PEP) 1.2 Efoqr-5-Ootdjtsne 0.4 Exysg-8-Dlnhhuekc 0.7 Beta Globulins 0.6 L Gamma Globulins 0.8 M-Franky Not observed PEP Note IgG 816 IgA 171 IgM 105 Serum Immunofixation 01/12/22 06:42 Corrected WBC Uncorrected WBC Count RBC Hgb Hct MCV MCH MCHC RDW Plt Count MPV Neut % (Auto) Lymph % (Auto) [place] % (Auto) Eos % (Auto) Baso % (Auto) Neut # (Auto) Lymph # (Auto) [place] # (Auto) Eos # (Auto) Baso # (Auto) Nucleated RBC % (auto) PHA Creatinine Clear Sodium Potassium Chloride Carbon Dioxide Anion Gap BUN Creatinine Est GFR ( Amer) Est GFR (Non-Af Amer) Glucose Calcium C-Reactive Prot, Quant 8.4 H Serum Total Protein Albumin (Send Out) Globulin (PEP) Albumin/Globulin (PEP) Ghmej-9-Euteimoxc Rrncf-6-Ivainoxko Beta Globulins Gamma Globulins M-Franky PEP Note [...] signed by Bhupinder Mcintyre DO> 01/12/22 1811 [facility] Work Phone: 1(348) 900-936111-08-2022 Progress note Author Raji Ennis [facility] January 12, 2022 4:38pmNote Date/TimeNov2021 4:38pm[place] [address] Hospitalist Progress Note Signed Patient: Tavo Wallis Jr MR# : [id number] : 1940 Acct:[id number] Age/Sex: 81 / M Adm Date: 2 Loc: Room: [address] [place] [address] Type: ADM IN Attending Dr: Raji Ennis [...] Propionate 1 spray 01/09/22 15:17 Fluticasone Propionate [place] 120 [place]/16 Gm Bottle NARES-BOTH 01/09/23 15:16 QHS PRN [...] DVT prophylaxis Documented By: Raij Ennis MD 01/12/22 163 Signed By: <Electronically signed by Raji Ennis MD> 01/12/228 [facility] Work Phone: 1(473) 213-575711-08-2022 Progress note Author Mani Dickens [facility] January 12, 2022 4:10pmNote Date/TimeNov2021 8:19[place] [address] Neurology Progress Note Signed Patient: Tavo Wallis Jr MR# : [id number] : 1940 Acct:[id number] Age/Sex: 81 / M Adm Date: 2 Loc: Room: [address] [place] [address] Type: ADM IN Attending Dr: Raji Ennis [...] extremities * Unable to test finger-nose or cnmi-bp-coxf due to drowsiness REFLEX EXAM: * 1/4 [...] Recommendations: OT Recommendations OT Recommended Discharge Senior Care Facility Location OT Recommended Services at Physical Therapy,Occupational Therapy Discharge PT Recommendations PT Recommended Discharge Senior Care Facility Location PT Recommended Services at Physical [...] the plan of care and 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 The patient is an 81-year-old man [...] signed by MD Mani Dickens> 01/12/22 1610 [facility] Work Phone: 1(599) 487-260211-07-2022 Progress note Author Raji Ennis [facility] January 11, 2022 5:04pmNote Date/TimeNov2021 5:04pm12 [place] [address] [address] Hospitalist Progress Note Signed Patient: Tavo Wallis Jr MR# : [id number] : 1940 Acct:[id number] Age/Sex: 81 / M Adm Date: 2 Loc: Room: [address] [place] [address] Type: ADM IN Attending Dr: Raji Ennis [...] Propionate 1 spray 01/09/22 15:17 Fluticasone Propionate [place] 120 [place]/16 Gm Bottle NARES-BOTH 01/09/23 15:16 QHS PRN [...] 01/11/22 22:00 Tablet PO 01/11/23 21:59 HS [facility] Nystatin 1 applic 01/09/22 22:00 01/11/22 [...] prophylaxis Documented By: Raji Ennis MD 01/11/22 7707 Signed By: <Electronically signed by Raji Ennis MD> 01/11/22 3393 [facility] Work Phone: 1(452) 468-144811-07-2022 Progress note Author Mani Dickens [facility] January 11, 2022 5:02pmNote Date/TimeNov2021 8:55[place] [address] Neurology Progress Note Signed Patient: JadynTavo sevilla Jr MR# : [id number] : 1940 Acct:[id number] Age/Sex: 81 / M Adm Date: 2 Loc: 3T Room: [address] [place] [address] Type: ADM IN Attending Dr: Raji Ennis [...] knee to all modalities. CEREBELLAR EXAM: * Sxqtwz-zi-rrbp and alternating movements are intact and normal in bilateral upper extremities * Pbux-te-knrn and alternating movements are intact and normal [...] Recommendations: OT Recommendations OT Recommended Discharge [facility] Location OT Recommended Services at Physical Therapy,Occupational Therapy Discharge PT Recommendations PT Recommended Discharge [facility] Location PT Recommended Services at Physical [...] the plan of care and 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 The patient is an 81-year-old man [...] signed by MD Mani Dickens> 01/11/22 170 [facility] Work Phone: 1(461) 169-342811-07-2022 Progress note Author W Be Mcintyre [facility] January 11, 2022 2:09pmNote Date/TimeNov2021 2:09pm[place] [address] Cardiology Progress Note Signed Patient: Tavo Wallis Jr MR# : [id number] : 1940 Acct:[id number] Age/Sex: 81 / M Adm Date: 2 Loc: Room: [address] [place] [address] Type: ADM IN Attending Dr: Raji Ennis [...] % (Auto) 73.8 Lymph % (Auto) 13.7 [place] % (Auto) 9.6 Eos % (Auto) 2.2 Baso % (Auto) 0.7 Neut # (Auto) 6.3 Lymph # (Auto) 1.2 [place] # (Auto) 0.8 Eos # (Auto) 0.2 [...] signed by Bhupinder Mcintyre DO> 01/11/22 1409 [facility] Work Phone: 1(317) 360-516711-06-2022 Progress note Author Dharmesh Zavala [facility] January 10, 2022 8:54pmNote Date/TimeNov2021 8:54pmHouston[place] [address] Hospitalist Progress Note Signed Patient: Tavo Wallis Jr MR# : [id number] : 1940 Acct:[id number] Age/Sex: 81 / M Adm Date: 2 Loc: Room: [address] [place] [address] Type: ADM IN Attending Dr: Dharmesh Zavala DO Copies to: ~ Date of Service: 01/10/2022 Subjective Subjective Narrative: When I entered the room the patient tells me that he is getting a pain in the thighs on the top of his legs. He does mention that the people in [place] told me that was due to the [...] Capsule PO 01/09/23 20:59 Not Given BID [facility] Fluticasone Propionate 1 spray 01/09/22 15:17 Fluticasone Propionate [place] 120 [place]/16 Gm Bottle NARES-BOTH 01/09/23 15:16 QHS PRN [...] <Electronically signed by Dharmesh Zavala DO> 01/10/222053 [facility] Work Phone: [phone] 168-883411-06-2022 Consult note Author Vikas Mane [facility] January 10, 2022 12:35pmNote Date/TimeNov2021 9:20[place] [address] Neurology Consult Note Signed Patient: Tavo Wallis Jr MR# : [id number] : 1940 Acct:[id number] Age/Sex: 81 / M Adm Date: 2 Loc: Room: [address] [place] [address] Type: ADM IN Attending Dr: Dharmesh Zavala DO Copies to: DO Opal Pollock,DO Dharmesh Zavala DO~ HPI Consult Date: 01/10/22 Retail Maintenance Technician: Vikas Mane DO PMFSH Vaccinated for COVID-19?: [...] Esa Cardoso M.D.01/09/2022 10:11 AM Dictation Location: [place] [address] Renal Ultrasound 01/10/22 05:00 IMPRESSION: No hydronephrosis. Impression dictated by: Esa Cardoso M.D.01/10/2022 9:07 AM Dictation Location: [place] [address] Assessment/Plan (1) Falls frequently: Assessment/Problem Details: HPI: [...] rapidly alternating movements. No limb dysmetria with sqovnz-fjab-mkhaax testing. DATA REVIEW: MRI lumbar spine from [...] <Electronically signed by Vikas Mane DO> 01/10/[address] [place] [address] Work Phone: 1([phone]) 254-889011-06-2022 Consult note Author Marv Urena [facility] January 10, 2022 11:32amNote Date/TimeNov2021 11:32[place] [address] Cardiology Consult Note Signed Patient: Tavo Wallis Jr MR# : [id number] : 1940 Acct:[id number] Age/Sex: 81 / M Adm Date: 2 Loc: Room: [address] [place] [address] Type: ADM IN Attending Dr: Dharmesh Zavala DO Copies to: DO Marv Catalan MD, [facility] Dharmesh Zavala DO~ Cardiology HPI [...] He has adequate social support at home. [facility] Vaccinated for [facility]-19?: Yes Medical History (Updated [...] x10E3/uL Lymph # (Auto) 1.0 (1.00-4.8) x10E3/uL [place] # (Auto) 1.0 H (0.0-0.8) x10E3/uL Eos [...] Bradycardia, unspecified Documented By: Marv Urena MD, [facility] 2 1125 Signed By: <Electronically signed by [facility] Marv Urena> 01/10/22 1132 [facility] Work Phone: [phone]) 479-345311-05-2022 History and physical note Author Dharmesh Zavala [facility] January 09, 2022 3:30pmNote Date/TimeNov2021 3:30pm[place] [address] Hospitalist H&P Signed Patient: Tavo Wallis Jr MR# : [id number] : 1940 Acct:[id number] Age/Sex: 81 / M Adm Date: 2 Loc: Room: [address] [place] [address] Type: ADM IN Attending Dr: Dharmesh Zavala [...] that he had seen a urologist in [place] recently. Patient used to be on a number of prostate medications but apparently they were stopped because they are not doing what they are supposed to be doing. The patient andhis daughter have a discussion about what urology was doing for the situation without finding a specific answer. Patient also describes that he has been veryconstipated lately and takes an unspecified njok-aus-dohwiwa generic stool softener. His daughter does point [...] radiofrequency ablations by pain management doctor in [place]. Review of Systems Review of Systems Review [...] % (Auto) 13.5 % (.) 01/09/22 10:36 [place] % (Auto) 14.2 % (.) 01/09/22 10:36 Eos % (Auto) 0.1 % (.) 01/09/22 10:36 Baso % (Auto) 1.0 % (.) 01/09/22 10:36 Neut # (Auto) 4.3 x10E3/uL (1.8-7.7) 01/09/22 10:36 Lymph # (Auto) 0.8 x10E3/uL (1.00-4.8) L 01/09/22 10:36 [place] # (Auto) 0.9 x10E3/uL (0.0-0.8) H 01/09/22 [...] pH 5.5 (5.0-9.0) 01/09/22 12:42 Ur Specific [place] 1.018 (1.001-1.030) 01/09/22 12:42 Urine Protein Trace [...] signed by Dharmesh Zavala, > 01/09/22 1530 [facility] Work Phone: [phone]) 829-661911-03-2022 Evaluation note* Encounter Date Diagnosis Assessment Notes [...] in a week to re-evaluate the area. [facility] Other 10-21-2022 Evaluation note* Encounter Date Diagnosis Assessment Notes Treatment Notes Treatment Clinical Notes Dec, Lower extremity edema (ICD-10 - R60.0) [facility] Other 10-13-2022 NoteCONSULTATION CONSULTATION DATE: 12/17/2021 HISTORY [...] next refill, we will change it to [place] 5/325 daily p.r.n. and the patient is encouraged to increase oral fluids and to continue with his stool softener on a daily basis. Heat education was discussed with the patient, as far as frequency and consistency. We will see him in three months' time, unless otherwise indicated, and all questions answered today.[facility] [id number] NoteCONSULTATION CONSULTATION DATE: 11/12/2021 HISTORY OF PRESENT [...] followed up in the office post procedure.[facility] [id number] Evaluation note* Encounter Date Diagnosis Assessment Notes [...] manage his swelling better. He voiced understanding. [facility] Other 07-25-2022 Evaluation note* Encounter Date Diagnosis Assessment Notes Treatment Notes Treatment Clinical Notes Sep, CHF (congestive heart failure) ( ICD-10 - I50.9) [facility] Other 07-08-2022 Evaluation note* Encounter Date Diagnosis Assessment Notes Treatment Notes Treatment Clinical Notes Sep, CHF (congestive heart failure) ( ICD-10 - I50.9) Patient is to hold bumex until re-evaluated in one month per Dr. Opal Ga. [facility] Other 07-07-2022 Evaluation note* Encounter Date Diagnosis Assessment Notes Treatment Notes Treatment Clinical Notes Sep, Atrial fibrillation (ICD-10 - I4 8.91) [facility] Other 07-01-2022 Evaluation note* Encounter Date Diagnosis Assessment Notes Treatment Notes Treatment Clinical Notes Sep, Insomnia (ICD-10 - G47.00) Sep,Gout (ICD-10 - M10.9) [facility] Other 06-27-2022 Evaluation note* Encounter Date Diagnosis [...] is in AF today. He did see butt maker a few weeks ago and is stable [...] continue with current medications at this time. [facility] Other 06-09-2022 NoteCONSULTATION CONSULTATION DATE: 08/13/2021 This [...] in three months' time unless otherwise indicated. [facility] Signed and Approved by: NATACHA RODARTE . 08/20/2021 16:02:00[facility] [id number] Evaluation note* Encounter Date Diagnosis Assessment Notes Treatment Notes Treatment Clinical Notes May, Insomnia (ICD-10 - G47.00) [facility] 01-05-2022 Evaluation note* Encounter Date Diagnosis Assessment Notes Treatment Notes Treatment Clinical Notes Mar, Atrial fibrillation (ICD-10 - I4 8.91) [facility] Other 12-30-2021 Evaluation note* Encounter Date Diagnosis Assessment Notes Treatment Notes Treatment Clinical Notes Feb, Insomnia (ICD-10 - G47.00) [facility] Other 11-15-2021 Evaluation note* Encounter Date Diagnosis [...] Jan,creening for prostate cancer (ICD-10 - Z12.5) [facility] Other 03-19-2007 History general Narrative - Reported* Type Description Date Medical History EKG 05-23-2006 Medical HistoryMRI Lumbar Spine 01-13-11; [facility] History[facility] hip replacement 7-67-83Akcrwza Hmdrntc40/18/14-[facility] Historyfollows with urologyMedical History05/11/16 Stress TestMedical Historyf/u with Dr Mcintyre for CHF, A-FibMedical HistoryDr Brambila pain mgmt- back spondylolysisMedical HistoryMUGA Stress test 4/10/17 NOHCMedical History 05/10/2018 Colonscopy due to positive cologuard- polypectomy- Dr. Sweet Historyvenous insufficiencyMedical HistoryHTNMedical HistoryDJDMedical History HypothyroidismMedical HistoryMild CRIMedical HistoryCHFSurgical HistoryLeg and ankleSurgical HistoryBackSurgical HistoryBoth ShouldersSurgical HistoryHand Surgical HistoryNoseSurgical HistoryTumor removed from back that was in the yacms66-77-1153Qeibqtic Historyleft hip -31-35Vgjdhdwq History Bilateral Iwzfzpix2637Rtwgthan HistoryLTJADON Lezama11/05/19[facility], A-Fib04/2016 [facility] Other [id number] History general Narrative - Reported* Type Description Date Medical History EKG 05-23-2006 Medical HistoryMRI Lumbar Spine 01-13-11; [facility] hip replacement 8-79-53Zegcxls Uqscrcg34/18/14-[facility] Historyfollows with urologyMedical History05/11/16 Stress TestMedical Historyf/u with Dr Mcintyre for CHF, A-FibMedical HistoryDr Brambila pain mgmt- back spondylolysisMedical HistoryMUGA Stress test 06/14/16 NOMedical History 05/10/2018 Colonscopy due to positive cologuard- polypectomy- Dr. 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 the -92-0262 Surgical Historyleft hip lfrtlnxojnv1-93-86Mnywzxxm HistoryBilateral Cataract 2018Surgical HistoryLTJADON Lezama11/05/19Hospitalization HistoryFR- CHF, A-Fib04/2016 [facility] Other Consult note Author Vikas Mane [facility] January 10, 2022 12:35pmNote Date/TimeNov2021 9:20[place] [address] Neurology Consult Note Signed Patient: Tavo Wallis Jr MR# : [id number] : 1940 Acct:[id number] Age/Sex: 81 / M Adm Date: 2 Loc: 3T Room: [address] [place] [address] Type: ADM IN Attending Dr: Dharmesh Zavala DO Copies to: DO Opal Pollock,DO Dharmesh Zavala DO~ HPI Consult Date: 01/10/22 Retail Maintenance Technician: Vikas Mane DO PMFSH Vaccinated for COVID-19?: [...] Esa Cardoso M.D.01/09/2022 10:11 AM Dictation Location: [facility]-03 Renal Ultrasound 01/10/22 05:00 IMPRESSION: No hydronephrosis. Impression dictated by: Esa Cardoso M.D.01/10/2022 9:07 AM Dictation Location: [place] [address] Assessment/Plan (1) Falls frequently: Assessment/Problem Details: HPI: [...] rapidly alternating movements. No limb dysmetria with tpgmmg-gxav-oqogpn testing. DATA REVIEW: MRI lumbar spine from [...] signed by Vikas Mane DO> 01/10/22 1235 [facility] Work Phone: Consult note Author Marv Urena [facility] January 10, 2022 11:32amNote Date/TimeNov2021 11:32[place] [id number] Cardiology Consult Note Signed Patient: Tavo Wallis Jr MR# : [id number] : 1940 Acct:[id number] Age/Sex: 81 / M Adm Date: 2 Loc: 3T Room: [address] [place] [address] Type: ADM IN Attending Dr: Dharmesh Zavala DO Copies to: DO Marv Catalan MD, [facility] Dharmesh Zavala, ~ Cardiology HPI History of [...] social support at home. [facility] Vaccinated for COVID-19?: Yes Medical [...] x10E3/uL Lymph # (Auto) 1.0 (1.00-4.8) x10E3/uL [place] # (Auto) 1.0 H (0.0-0.8) x10E3/uL Eos [...] Bradycardia, unspecified Documented By: Marv Urena MD, [facility] 2 1125 Signed By: <Electronically signed by [facility]> 01/10/22 1130 [facility] Work Phone: Consult note Author Frankie Reynolds [facility] January 13, 2022 10:45amNote Date/TimeNovember 2021 10:45am[place] [id number] Infect. Disease Consult Note Signed Patient: Tavo Wallis Jr MR# : [id number] : 1940 Acct:[id number] Age/Sex: 81 / M Adm Date: 2 Loc: Room: [address] [place] [address] Type: ADM IN Attending Dr: Raji Ennis [...] below or in HPI [facility] Attestation Statement: The following information [...] Mg/4 Ml Vial) 1 mg IV-PUSH BID@0800,1600 [facility] Stop: 01/13/23 07:59 Last Admin: 01/13/22 09:43 Dose: 1 mg Docusate Sodium (Docusate 100 Mg Capsule) 100 mg PO BID [facility] Stop: 01/09/23 20:59 Last Admin: 01/13/22 09:43 Dose: 100 mg Fluticasone Propionate (Fluticasone Propionate [place] 120 [place]/16 Gm Bottle) 1 spray NARES-BOTH QHSPRN PRN Reason: Nasal Congestion Stop: 01/09/23 15:16 Magnesium Sulfate (Magnesium Sulf 2gm-*Swfi*) 2 gm in 50 mls @ 25 mls/hr IV DAILY PRN PRN Reason: Magnesium Level < 1.5 Stop: 01/09/23 14:40 Cefepime HCl (Maxipime) 2 gm in 50 mls @ 100 mls/hr IV Q12H [facility] Last Admin: 01/13/22 03:07 Dose: 100 mls/hr Levothyroxine Sodium (Levothyroxine 150 Mcg Tablet) 150 mcg PO DAILY@0630 [facility] Stop: 01/10/23 06:29 Last Admin: 01/13/22 06:26 Dose: 150 mcg Magnesium Hydroxide (Magnesium Hydroxide Susp 30 Ml Udc) 30 ml PO BID PRN PRN Reason: Constipation Stop: 01/09/23 14:40 Magnesium Oxide (Magnesium Oxide 400 Mg Tablet) 400 mg PO DAILY [facility] Stop: 01/10/23 08:59 Last Admin: 01/13/22 09:43 Dose: 400 mg Nitroglycerin (Nitroglycerin 0.4 Mg Tab.Subl) 0.4 mg SUBLINGUAL Q5MIN.X3 PRN PRN Reason: Chest Pain Stop: 01/09/23 14:40 Pom Eszopiclone 3 Mg (Tablet) 3 mg PO HS [facility] Stop: 01/11/23 21:59 Last Admin: 01/12/22 22:51 Dose: 3 mg Nystatin (Nystatin 100,000 Unit/Gram Powder 15 Gm Bottle) 1 applic TOPICAL TID [facility] Stop: 01/09/23 21:59 Last Admin: 01/13/22 [...] 20 Meq Tab.Er.Prt) 20 meq PO QPM [facility] Stop: 01/09/23 20:59 Last Admin: 01/12/22 22:51 Dose: 20 meq Sodium Chloride (Sodium Chloride 0.9 % 10 Ml Syringe) 0 ml IV-PUSH PRN PRN PRN Reason: Flush Stop: 01/09/23 09:37 Last Admin: 01/10/22 23:31 Dose: 10 ml Sodium Chloride (Sodium Chloride 0.9 % 10 Ml Syringe) 0 ml IV-PUSH QSHIFT [facility] Stop: 01/09/23 21:59 Last Admin: 01/13/22 06:26 [...] appear consistent with acute gout. Documented By: rFankie Reynolds MD 01/13/22 1033 Signed By: <Electronically signed by MD Frankie Reynolds> 01/13/22 1045 [facility] Work Phone: Consult note Author Bayron farnsworth [facility] HospitalNote Date/TimeMay 2024 2:49pm[place] [address] Urology Consult Note Signed Patient: Tavo Wallis Jr MR# : [id number] : 1940 Acct:[id number] Age/Sex: 83 / M Adm Date: 5 Loc: Room: [address] [place] [address] Type: ADM IN Attending Dr: Mario Jordan [...] except as per HPI [facility] Medical History Insomnia Hypothyroidism Hypertension [...] drinks a day >6 Social History Comments: [facility] Meds Medications and Allergies Allergies fentanyl [...] in place with clear yellow urine 22 [place] three-way Skin: Warm and dry Extremities: No [...] Neut % (Auto) 90.2, Lymph %(Auto) 2.7, [place] % (Auto) 6.8, Eos % (Auto) 0.1, Baso % (Auto) 0.2, Nucleat RBC Rel Count 0.1, Neut# (Auto) 24.1 H, Lymph # (Auto) 0.7 L, [place] # (Auto) 1.8 H, Eos # (Auto) [...] % (Auto) N/A, Lymph % (Auto) N/A, [place] % (Auto) N/A, Eos % (Auto) N/A, Baso % (Auto) N/A, Nucleat RBC Rel Count N/A, Neut # (Auto) N/A, Lymph # (Auto) N/A, [place] # (Auto) N/A, Eos # (Auto) N/A, [...] Turbid A, Urine pH , Ur Specific [place] 1.020,Urine Protein , Urine Glucose (UA) , [...] % (Auto) 93.8, Lymph % (Auto) 4.2, [place] % (Auto) 0.4, Eos % (Auto) 1.3, Baso % (Auto) 0.3, Nucleat RBC Rel Count 0.2, Neut # (Auto)6.3, Lymph # (Auto) 0.3 L, [place] # (Auto) 0.0, Eos # (Auto) 0.1, [...] signed by Bayron Tom MD> 07/13/24 1449 [facility] Work Phone: Consult note Author Bryce Villeda [facility] HospitalNote Date/TimeMay 2024 12:21pm[place] [id number] General Surgery Consult Note Signed Patient: Tavo Wallis Jr MR# : [id number] : 1940 Acct:[id number] Age/Sex: 83 / M Adm Date: 5 Loc: 4 Room: [address] [place] [address] Type: ADM IN Attending Dr: Mario Jordan [...] have caused the injury. [facility] Medical History Insomnia Hypothyroidism Hypertension [...] drinks a day >6 Social History Comments: [facility] Allergies & Medications Medications and Allergies [...] 500 Mg Tablet) 500 mg PO TID [facility] Stop: 07/12/25 21:59 Last Admin: 07/14/24 09:05 [...] 50 mls @ 12.5 mls/hr IV Q12H [facility] Last Admin: 07/14/24 09:05 Dose: 12.5 mls/hr [...] 3 (Mg Tablet)) 3 mg PO QHS [facility] Stop: 07/20/25 21:59 Oxycodone/Acetaminophen (Oxycodone/Acetaminophen 5-325 Mg Tablet) 1 tab PO Q4H PRN PRN Reason: Pain Scale 4 - 7 Last Admin: 07/13/24 22:05 Dose: 1 tab Polyethylene Glycol (Polyethylene Glycol 3350 17 Gm Powd.Pack) 17 gm PO BID [facility] Stop: 07/14/25 10:04 Potassium Chloride (Potassium Chloride Er 20 Meq Tab.Er.Prt) 20 meq PO DAILY [facility] Stop: 07/13/25 08:59 Last Admin: 07/14/24 09:05 Dose: 20 meq Sennosides (Sennosides Syrup 8.8 Mg/5 Ml Udc) 8.8 mg PO BID [facility] Stop: 07/14/25 10:04 Sodium Chloride (Sodium Chloride [...] Neut % (Auto) 84.9, Lymph %(Auto) 7.4, [place] % (Auto) 6.1, Eos % (Auto) 1.4, Baso % (Auto) 0.2, Nucleat RBC Rel Count 0.1, Neut# (Auto) 13.3 H, Lymph # (Auto) 1.2, [place] # (Auto) 1.0 H, Eos # (Auto) [...] Neut % (Auto) 90.2, Lymph %(Auto) 2.7, [place] % (Auto) 6.8, Eos % (Auto) 0.1, Baso % (Auto) 0.2, Nucleat RBC Rel Count 0.1, Neut# (Auto) 24.1 H, Lymph # (Auto) 0.7 L, [place] # (Auto) 1.8 H, Eos # (Auto) [...] % (Auto) N/A, Lymph % (Auto) N/A, [place] % (Auto) N/A, Eos % (Auto) N/A, Baso % (Auto) N/A, Nucleat RBC Rel Count N/A, Neut # (Auto) N/A, Lymph # (Auto) N/A, [place] # (Auto) N/A, Eos # (Auto) N/A, [...] Turbid A, Urine pH , Ur Specific [place] 1.020,Urine Protein , Urine Glucose (UA) , [...] % (Auto) 93.8, Lymph % (Auto) 4.2, [place] % (Auto) 0.4, Eos % (Auto) 1.3, Baso % (Auto) 0.3, Nucleat RBC Rel Count 0.2, Neut # (Auto)6.3, Lymph # (Auto) 0.3 L, [place] # (Auto) 0.0, Eos # (Auto) 0.1, [...] signed by Bryce Villeda DO> 07/14/24 1221 [facility] Work Phone: Consult note Author Frankie Reynolds [facility] HospitalNote Date/TimeMay 2024 9:59[place] [id number] Infect. Disease Consult Note Signed Patient: Tavo Wallis Jr MR# : [id number] : 1940 Acct:[id number] Age/Sex: 84 / M Adm Date: 5 Loc: Room: [address] [place] [address] Type: ADM IN Attending Dr: Mario Jordan MD Copies to: MD Sandip Fajardo MD~ [facility] Data of Consult Consult date: 07/15/24 Requesting [...] below or in HPI [facility] Medical History Insomnia Hypothyroidism Hypertension [...] 500 Mg Tablet) 500 mg PO TID [facility] Stop: 07/12/25 21:59 Last Admin: 07/15/24 08:33 [...] 40 Mg Tablet) 40 mg PO DAILY [facility] Stop: 07/13/25 08:59 Last Admin: 07/15/24 08:33 Dose: 40 mg Bumetanide (Bumetanide 1 Mg Tablet) 1 mg PO DAILY@0800 [facility] Stop: 07/15/25 07:59 Last Admin: 07/15/24 08:33 Dose: 1 mg Vancomycin HCl 1.25 gm/ (Dextrose) 275 mls @ 183.333 mls/hr IV Q12H [facility] Stop: 07/13/25 17:59 Last Admin: 07/15/24 09:47 Dose: 183.33 mls/hr Cefepime HCl (Maxipime) 2 gm in 50 mls @ 12.5 mls/hr IV Q12H [facility] Last Admin: 07/15/24 08:34 Dose: 12.5 mls/hr Levothyroxine Sodium (Levothyroxine 150 Mcg Tablet) 150 mcg PO DAILY.0630 [facility] Stop: 07/13/25 06:29 Last Admin: 07/15/24 08:33 Dose: 150 mcg Magnesium Oxide (Magnesium Oxide 400 Mg Tablet) 400 mg PO DAILY [facility] Stop: 07/13/25 08:59 Last Admin: 07/15/24 08:33 Dose: 400 mg Eszopiclone 3 Mg (Tablet) 3 mg PO QHS [facility] Stop: 07/12/25 21:59 Last Admin: 07/14/24 23:17 Dose: Not Given Pom (Eszopiclone 3 (Mg Tablet)) 3 mg PO QHS [facility] Stop: 07/20/25 21:59 Oxycodone/Acetaminophen (Oxycodone/Acetaminophen 5-325 Mg Tablet) 1 tab PO Q4H PRN PRN Reason: Pain Scale 4 - 7 Last Admin: 07/13/24 22:05 Dose: 1 tab Polyethylene Glycol (Polyethylene Glycol 3350 17 Gm Powd.Pack) 17 gm PO BID [facility] Stop: 07/14/25 10:04 Last Admin: 07/15/24 08:17 Dose: Not Given Potassium Chloride (Potassium Chloride Er 20 Meq Tab.Er.Prt) 20 meq PO DAILY [facility] Stop: 07/13/25 08:59 Last Admin: 07/15/24 08:33 Dose: 20 meq Sennosides (Sennosides Syrup 8.8 Mg/5 Ml Udc) 8.8 mg PO BID [facility] Stop: 07/14/25 10:04 Last Admin: 07/15/24 08:17 [...] @ 12.5 mls/hr IV Q12H [facility] Rx#: [id number] Vancomycin 1.25 gm In Dextrose 275 / 550 5 % in Water 250 ml @ 183.333 mls/hr IV Q12H [facility] Rx#:[id number] Oral 860 / 1110 0 / 0 [...] signed by MD Frankie Reynolds> 07/15/24 0959 [facility] Work Phone: Evaluation noteNo assessment information available [facility] Work Phone: Evaluation noteNo InformationNort CleanTie Other Evaluation note* Diagnosis Onset Date Resolution Status Acute decompensated heart failure acuteAcute exacerbation of chronic low back painacuteElevated troponinacuteFall acuteHypoxemiaacute [facility] Work Phone: Evaluation note* Diagnosis Onset Date Resolution Status Acute decompensated heart failure acuteAcute exacerbation of chronic low back [id number] respiratory failure with hypoxiaacuteAltered mental statusacuteAnasarcaacute Bladder retentionacuteBradycardiaacuteConstipationacuteDifficulty walkingacute Elevated troponinacuteFallacuteFalls frequentlyacuteFeveracuteGeneralized weaknessacuteHFrEF (heart failure with reduced ejection fraction)acuteHypoxemia acuteImpaired activities of daily livingacuteMyxopapillary ependymomaacute Pleural effusionacuteSleep apneaacuteAtrial fibrillationchronicHypertension chronic [facility] Work Phone: Evaluation note* Diagnosis Chronic atrial fibrillation (Multi) Atrial fibrillation Essential hypertension, benign Heart failure, NYHA class 2 (Multi) Hyperlipidemia, unspecified hyperlipidemia type documented in this encounter [facility] Work Phone: Evaluation note* Author Mayra Ponce [facility] HospitalAuthoredJuly 2023 10:21amThe above note written by ROSALIE Quiroga acting as human recorder, note dictated by Dr. Opal Ga. 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 Primary hypertension Unspecified essential hypertension Mixed hyperlipidemia BMI 30.0-30.9,adult Former smoker Personal history of tobacco use, presenting hazards to health documented in this encounter [facility] Work Phone: Evaluation note* Diagnosis Lumbar stenosis with neurogenic claudication- Primary Spinal stenosis, lumbar region, with neurogenic claudication Longstanding persistent atrial fibrillation (HCC) Cardiomyopathy, unspecified type (HCC) 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, lumbar region, with neurogenic claudication [facility] Diagnosis Pain due to onychomycosis of toenail of left foot- Primary Pain due to onychomycosis of toenail of right foot Localized edema Edema Decreased pedal pulses Other symptoms involving cardiovascular system group home (current) use of anticoagulants Long-term (current) use of anticoagulants [facility] Author Dharmesh Zavala [facility] January 09, 2022 3:30pmNote Date/TimeNov2021 3:30pm[place] [address] Hospitalist H&P Signed Patient: Tavo Wallis Jr MR# : [id number] : 1940 Acct:[id number] Age/Sex: 81 / M Adm Date: 2 Loc: Room: [address] [place] [address] Type: ADM IN Attending Dr: Dharmesh Zavala [...] that he had seen a urologist in [place] recently. Patient used to be on a number of prostate medications but apparently they were stopped because they are not doing what they are supposed to be doing. The patient andhis daughter have a discussion about what urology was doing for the situation without finding a specific answer. Patient also describes that he has been veryconstipated lately and takes an unspecified vjjf-dck-kzogbso generic stool softener. His daughter does point [...] radiofrequency ablations by pain management doctor in [place]. Review of Systems Review of Systems Review [...] % (Auto) 13.5 % (.) 01/09/22 10:36 [place] % (Auto) 14.2 % (.) 01/09/22 10:36 Eos % (Auto) 0.1 % (.) 01/09/22 10:36 Baso % (Auto) 1.0 % (.) 01/09/22 10:36 Neut # (Auto) 4.3 x10E3/uL (1.8-7.7) 01/09/22 10:36 Lymph # (Auto) 0.8 x10E3/uL (1.00-4.8) L 01/09/22 10:36 [place] # (Auto) 0.9 x10E3/uL (0.0-0.8) H 01/09/22 [...] pH 5.5 (5.0-9.0) 01/09/22 12:42 Ur Specific [place] 1.018 (1.001-1.030) 01/09/22 12:42 Urine Protein Trace [...] lumbar spine. Documented By: Dharmesh Zavala DO 1947 Signed By: <Electronically signed by Dharmesh Zavala DO> 01/09/22 9522 [facility] Work Phone: History and physical note Author Mitchell Reyes [facility] HospitalNote Date/TimeJanuary 2024 3:49pmAnthony [place] [id number] Hospitalist H&P Signed Patient: Tavo Wallis Jr MR# : [id number] : 1940 Acct:[id number] Age/Sex: 83 / M Adm Date: 5 Loc: 3T Room: [address] [place] [address] Type: ADM IN Attending Dr: Mitchell Reyes MD Copies to: MD Opal Peters,DO~ HPI DATE OF EXAMINATION: 03/10/24 HISTORY OF PRESENT ILLNESS: Patient is a 89-year-old male, who was well until approximately 2 weeks ago, when he underwent spinal decompression surgery in [facility] about 2 weeks prior to presentation. He [...] pressure measured ultrasonographically is fairly normal at [id number] cc water. LV contractility is slightly decreased. [...] apnea Obesity class I [facility] Medical History Insomnia Hypothyroidism Hypertension [...] % (Auto) 11.9 % (.) 03/10/24 10:00 [place] % (Auto) 9.2 % (.) 03/10/24 10:00 Eos % (Auto) 5.9 % (.) 03/10/24 10:00 Baso % (Auto) 1.4 % (.) 03/10/24 10:00 Nucleat RBC Rel Count 0.0 /100 WBC (0-0.5) 03/10/24 10:00 Neut # (Auto) 6.1 x10E3/uL (1.8-7.7) 03/10/24 10:00 Lymph # (Auto) 1.0 x10E3/uL (1.00-4.8) 03/10/24 10:00 [place] # (Auto) 0.8 x10E3/uL (0.0-0.8) 03/10/24 10:00 [...] signed by Mitchell Reyes MD> 03/10/24 1549 [facility] Work Phone: History and physical note Author Mario Jordan [facility] HospitalNote Date/TimeMay 2024 6:49pm[place] [address] Hospitalist H&P Signed Patient: Tavo Wallis Jr MR# : [id number] : 1940 Acct:[id number] Age/Sex: 83 / M Adm Date: 5 Loc: Room: [address] [place] [address] Type: ADM IN Attending Dr: Mario Jordan MD Copies to: MD Sandip Fajardo Ramona DO~ HPI DATE OF EXAMINATION: 07/12/24 CHIEF COMPLAINT: Hematuria HISTORY OF PRESENT ILLNESS: This is a 83-year-old male with significant past medical history of A-fib, hypothyroidism, hypertension, BPH on chronic Chou since March 2024 exchangingevery month, hyperlipidemia, gout, cardiomyopathy, history of CHF, [facility] for chief concern for hematuria. [...] below or in HPI [facility] Medical History Insomnia Hypothyroidism Hypertension [...] % (Auto) 4.2 % (.) 07/12/24 15:00 [place] % (Auto) 0.4 % (.) 07/12/24 15:00 Eos % (Auto) 1.3 % (.) 07/12/24 15:00 Baso % (Auto) 0.3 % (.) 07/12/24 15:00 Nucleat RBC Rel Count 0.2 /100 WBC (0-0.5) 07/12/24 15:00 Neut # (Auto) 6.3 x10E3/uL (1.8-7.7) 07/12/24 15:00 Lymph # (Auto) 0.3 x10E3/uL (1.00-4.8) L 07/12/24 15:00 [place] # (Auto) 0.0 x10E3/uL (0.0-0.8) 07/12/24 15:00 [...] Urine pH (5.0-9.0) 07/12/24 16:19 Ur Specific [place] 1.020 (1.001-1.030) 07/12/24 16:19 Urine Protein mg/dL [...] gout, cardiomyopathy, history of CHF, was [facility] from [facility] for chief concern for hematuria. [...] signed by Mario Jordan MD> 07/12/24 1849 [facility] Work Phone: History of Present illness Narrative* The patient states he has been generally stable since the last visit. Comorbid Illnesses: hypertension. * Symptoms: denies chest pain at rest, denies exertional chest pain, denies dyspnea, denies fatigue, stable exercise intolerance, denies palpitations, denies edema, denies orthopnea, denies dizziness and denies orthostatic dizziness. * Disease Monitoring: [facility] [employer] Work Phone: History of Present illness Narrative* The patient states he has been generally stable since the last visit. Comorbid Illnesses: hypertension. * Symptoms: denies chest pain at rest, denies exertional chest pain, denies dyspnea, denies fatigue, stable exercise intolerance, denies palpitations, denies edema, denies orthopnea, denies dizziness and denies orthostatic dizziness. * Disease Monitoring: [facility] [employer] Work Phone: History of Present illness Narrative* [...] not doing well with his goals. [facility] DO Work Phone: History [...] is not doing well with his goals. [facility] Work Phone: Hospital Discharge instructions Additional Instructions Senior Care Facility to manage care: - Full code [...] unable to void, chou catheter removed on 01/16[facility] Work Phone: Hospital Discharge instructions Additional [...] fall precautions Care to be managed by [facility] Work Phone: Hospital Discharge instructions [...] fall precautions Care to be managed by [facility] Work Phone: Progress note Author Dharmesh Zavala [facility] January 10, 2022 8:54pmNote Date/TimeNov2021 8:54pm[place] [address] Hospitalist Progress Note Signed Patient: Tavo Wallis Jr MR# : [id number] : 1940 Acct:[id number] Age/Sex: 81 / M Adm Date: 2 Loc: Room: 5Y2660-9 Type: ADM IN Attending Dr: Dharmesh Zavala DO Copies to: ~ Date of Service: 01/10/2022 Subjective Subjective Narrative: When I entered the room the patient tells me that he is getting a pain in the thighs on the top of his legs. He does mention that the people in [place] told me that was due to the [...] Propionate 1 spray 01/09/22 15:17 Fluticasone Propionate [place] 120 [place]/16 Gm Bottle NARES-BOTH 01/09/23 15:16 QHS PRN [...] 01/09/22 22:00 Eszopiclone PO 01/09/23 21:59 HS [facility] Nystatin 1 applic 01/09/22 22:00 01/10/22 14:42 [...] <Electronically signed by Dharmesh Zavala DO> 01/10/222053 [facility] Work Phone: Progress note Author Mani Dickens [facility] January 11, 2022 5:02pmNote Date/TimeNov2021 8:[address] [address] Neurology Progress Note Signed Patient: Tavo Wallis Jr MR# : [id number] : 1940 Acct:[id number] Age/Sex: 81 / M Adm Date: 2 Loc: 3T Room: [address] [place] [address] Type: ADM IN Attending Dr: Raji Ennis [...] knee to all modalities. 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 The patient is an 81-year-old man [...] signed by MD Mani Dickens> 01/11/22 170 [facility] Work Phone: Progress note Author W Be Mcintyre [facility] January 11, 2022 2:09pmNote Date/TimeNov2021 2:09pm[place] [address] Cardiology Progress Note Signed Patient: Tavo Wallis Jr MR# : [id number] : 1940 Acct:[id number] Age/Sex: 81 / M Adm Date: 2 Loc: Room: [address] [place] [address] Type: ADM IN Attending Dr: Raji Ennis [...] % (Auto) 73.8 Lymph % (Auto) 13.7 [place] % (Auto) 9.6 Eos % (Auto) 2.2 Baso % (Auto) 0.7 Neut # (Auto) 6.3 Lymph # (Auto) 1.2 [place] # (Auto) 0.8 Eos # (Auto) 0.2 [...] signed by Bhupinder Mcintyre DO> 01/11/22 1409 [facility] Work Phone: Progress note Author Raji Ennis [facility] January 11, 2022 5:04pmNote Date/TimeNov2021 5:04pm[place] [address] Hospitalist Progress Note Signed Patient: Tavo Wallis Jr MR# : [id number] : 1940 Acct:[id number] Age/Sex: 81 / M Adm Date: 2 Loc: Room: [address] [place] [address] Type: ADM IN Attending Dr: Raji Ennis [...] Propionate 1 spray 01/09/22 15:17 Fluticasone Propionate [place] 120 [place]/16 Gm Bottle NARES-BOTH 01/09/23 15:16 QHS PRN [...] prophylaxis Documented By: Raji Ennis MD 01/11/22 7957 Signed By: <Electronically signed by Raji Ennis MD> 01/11/22 1702 [facility] Work Phone: Progress note Author Mani Dickens [facility] January 12, 2022 4:10pmNote Date/TimeNov2021 8:19[place] [id number] Neurology Progress Note Signed Patient: Tavo Wallis Jr MR# : [id number] : 1940 Acct:[id number] Age/Sex: 81 / M Adm Date: 2 Loc: Room: [address] [place] [address] Type: ADM IN Attending Dr: Raji Ennis [...] extremities * Unable to test finger-nose or mtiy-nq-zcig due to drowsiness REFLEX EXAM: * 1 [...] Recommendations: OT Recommendations OT Recommended Discharge Senior Care Facility Location OT Recommended Services at Physical Therapy,Occupational Therapy Discharge PT Recommendations PT Recommended Discharge Senior Care Facility Location PT Recommended Services at Physical [...] the plan of care and 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 The patient is an 81-year-old man [...] signed by MD Mani Dickens> 01/12/22 1610 [facility] Work Phone: Progress note Author Raji Ennis [facility] January 12, 2022 4:38pmNote Date/TimeNov2021 4:38pm[place] [address] Hospitalist Progress Note Signed Patient: Tavo Wallis Jr MR# : [id number] : 1940 Acct:[id number] Age/Sex: 81 / M Adm Date: 2 Loc: Room: [address] [place] [address] Type: ADM IN Attending Dr: Raji Ennis [...] Propionate 1 spray 01/09/22 15:17 Fluticasone Propionate [place] 120 [place]/16 Gm Bottle NARES-BOTH 01/09/23 15:16 QHS PRN [...] signed by Raji Ennis MD> 01/12/22 1638 [facility] Work Phone: Progress note Author W Be Mcintyre [facility] January 12, 2022 6:11pmNote Date/TimeNov2021 6:11pm[place] [address] Cardiology Progress Note Signed Patient: Tavo Wallis MR# : [id number] : 1940 Acct:[id number] Age/Sex: 81 / M Adm Date: 2 Loc: 3T Room: [address] [place] [address] Type: ADM IN Attending Dr: Raji Ennis [...] % (Auto) 76.3 Lymph % (Auto) 12.2 [place] % (Auto) 9.1 Eos % (Auto) 1.9 Baso % (Auto) 0.5 Neut # (Auto) 7.7 Lymph # (Auto) 1.2 [place] # (Auto) 0.9 H Eos # (Auto) [...] 2.9 Globulin (PEP) 2.4 Albumin/Globulin (PEP) 1.2 Mogbe-8-Zzeapmech 0.4 Jowtr-9-Vsynchvbj 0.7 Beta Globulins 0.6 L Gamma Globulins 0.8 M-Franky Not observed PEP Note IgG 816 IgA 171 IgM 105 Serum Immunofixation 01/12/22 06:42 Corrected WBC Uncorrected WBC Count RBC Hgb Hct MCV MCH MCHC RDW Plt Count MPV Neut % (Auto) Lymph % (Auto) [place] % (Auto) Eos % (Auto) Baso % (Auto) Neut # (Auto) Lymph # (Auto) [place] # (Auto) Eos # (Auto) Baso # (Auto) Nucleated RBC % (auto) PHA Creatinine Clear Sodium Potassium Chloride Carbon Dioxide Anion Gap BUN Creatinine Est GFR ( Amer) Est GFR (Non-Af Amer) Glucose Calcium C-Reactive Prot, Quant 8.4 H Serum Total Protein Albumin (Send Out) Globulin (PEP) Albumin/Globulin (PEP) Mvaln-2-Uyemonncl Roayc-7-Bwafhbkvo Beta Globulins Gamma Globulins M-Franky PEP Note [...] signed by Bhupinder Mcintyre DO> 01/12/22 1811 [facility] Work Phone: Progress note Author Mani Dickens [facility] January 13, 2022 6:10pmNote Date/TimeNov2021 8:13[place] [address] Neurology Progress Note Signed with Addenda Patient: Tavo Wallis Jr MR# : [id number] : 1940 Acct:[id number] Age/Sex: 81 / M Adm Date: 2 Loc: Room: [address] [place] [address] Type: ADM IN Attending Dr: Raji Ennis [...] extremities * Unable to test finger-nose or udbt-me-lxku due to drowsiness REFLEX EXAM: * 03/10 [...] Recommendations: OT Recommendations OT Recommended Discharge Senior Care Facility Location OT Recommended Services at Physical Therapy,Occupational Therapy Discharge PT Recommendations PT Recommended Discharge Senior Care Facility Location PT Recommended Services at Physical [...] <Electronically signed by MEI Knight> 01/13/22 1520 [facility] Work Phone: Progress note Author Raji Ennis [facility] January 13, 2022 3:44pmNote Date/TimeNov2021 3:27pm[place] [address] Hospitalist Progress Note Signed Patient: Tavo Wallis Jr MR# : [id number] : 1940 Acct:[id number] Age/Sex: 81 / M Adm Date: 2 Loc: Room: [address] [place] [address] Type: ADM IN Attending Dr: Raji Ennis [...] Propionate 1 spray 01/09/22 15:17 Fluticasone Propionate [place] 120 [place]/16 Gm Bottle NARES-BOTH 01/09/23 15:16 QHS PRN [...] signed by Raji Ennis MD> 01/13/22 1544 [facility] Work Phone: Progress note Author Frankie Reynolds [facility] January 14, 2022 9:39amNote Date/TimeNov2021 9:39am[place] [address] Infect. Disease Progress Note Signed Patient: Tavo Wallis Jr MR# : [id number] : 1940 Acct:[id number] Age/Sex: 81 / M Adm Date: 2 Loc: Room: [address] [place] [address] Type: ADM IN Attending Dr: Raji Ennis [...] Appearance Clear Urine pH 5.5 Ur Specific [place] 1.012 Urine Protein 30 H Urine Glucose [...] 300 Mg Tablet) 300 mg PO DAILY [facility] Stop: 01/10/23 08:59 Last Admin: 01/14/22 08:04 Dose: 300 mg Apixaban (Apixaban 5 Mg Tablet) 5 mg PO BID [facility] Stop: 01/09/23 20:59 Last Admin: 01/14/22 08:04 Dose: 5 mg Atorvastatin Calcium (Atorvastatin 40 Mg Tablet) 40 mg PO QHS [facility] Stop: 01/09/23 21:59 Last Admin: 01/13/22 21:26 Dose: 40 mg Bisacodyl (Bisacodyl 10 Mg Supp.Rect) 10 mg WA DAILY PRN PRN Reason: Constipation Stop: 01/09/23 14:40 Bisacodyl (Bisacodyl 5 Mg Tablet.Dr) 10 mg PO DAILY PRN PRN Reason: Constipation Stop: 01/09/23 14:40 Last Admin: 01/13/22 21:26 Dose: 10 mg Bumetanide (Bumetanide 1 Mg Tablet) 1 mg PO BID@0800,1600 [facility] Stop: 01/13/23 15:59 Docusate Sodium (Docusate 100 Mg Capsule) 100 mg PO BID [facility] Stop: 01/09/23 20:59 Last Admin: 01/14/22 08:03 Dose: 100 mg Fluticasone Propionate (Fluticasone Propionate [place] 120 [place]/16 Gm Bottle) 1 spray NARES-BOTH QHSPRN PRN Reason: Nasal Congestion Stop: 01/09/23 15:16 Magnesium Sulfate (Magnesium Sulf 2gm-*Swfi*) 2 gm in 50 mls @ 25 mls/hr IV DAILY PRN PRN Reason: Magnesium Level < 1.5 Stop: 01/09/23 14:40 Cefepime HCl (Maxipime) 2 gm in 50 mls @ 100 mls/hr IV Q12H [facility] Last Admin: 01/14/22 03:05 Dose: 100 mls/hr Vancomycin HCl 1.25 gm/ (Dextrose) 275 mls @ 183.333 mls/hr IV Q24H [facility] Stop: 01/13/23 18:59 Last Infusion: 01/13/22 21:17 Dose: Infused Levothyroxine Sodium (Levothyroxine 150 Mcg Tablet) 150 mcg PO DAILY@0630 [facility] Stop: 01/10/23 06:29 Last Admin: 01/14/22 [...] 3 Mg (Tablet) 3 mg PO HS [facility] Stop: 01/11/23 21:59 Last Admin: 01/13/22 [...] signed by MD Frankie Reynolds> 01/14/22 0939 [facility] Work Phone: Progress note [facility] January 14, 2022 5:43pmNote Date/TimeNov2021 5:43pm[place] [address] Hospitalist Progress Note Signed Patient: Tavo Wallis Jr MR# : [id number] : 1940 Acct:[id number] Age/Sex: 81 / M Adm Date: 2 Loc: Room: [address] [place] [address] Type: ADM IN Attending Dr: Raji Ennis [...] Propionate 1 spray 01/09/22 15:17 Fluticasone Propionate [place] 120 [place]/16 Gm Bottle NARES-BOTH 01/09/23 15:16 QHS PRN [...] <Electronically signed by Raji Ennis MD> 01/14/221742 [facility] Work Phone: Progress note Author Frankie Reynolds [facility] January 15, 2022 12:21pmNote Date/TimeNov2021 12:21pm[place] [address] Infect. Disease Progress Note Signed Patient: Tavo Wallis Jr MR# : [id number] : 1940 Acct:[id number] Age/Sex: 81 / M Adm Date: 2 Loc: Room: [address] [place] [address] Type: ADM IN Attending Dr: Raji Ennis [...] 300 Mg Tablet) 300 mg PO DAILY [facility] Stop: 01/10/23 08:59 Last Admin: 01/15/22 [...] Dose: 100 mg Fluticasone Propionate (Fluticasone Propionate [place] 120 [place]/16 Gm Bottle) 1 spray NARES-BOTH QHSPRN PRN Reason: Nasal Congestion Stop: 01/09/23 15:16 Magnesium Sulfate (Magnesium Sulf 2gm-*Swfi*) 2 gm in 50 mls @ 25 mls/hr IV DAILY PRN PRN Reason: Magnesium Level < 1.5 Stop: 01/09/23 14:40 Levothyroxine Sodium (Levothyroxine 150 Mcg Tablet) 150 mcg PO DAILY@0630 [facility] Stop: 01/10/23 06:29 Last Admin: 01/15/22 06:38 Dose: Not Given Magnesium Hydroxide (Magnesium Hydroxide Susp 30 Ml Udc) 30 ml PO BID PRN PRN Reason: Constipation Stop: 01/09/23 14:40 Magnesium Oxide (Magnesium Oxide 400 Mg Tablet) 400 mg PO DAILY [facility] Stop: 01/10/23 08:59 Last Admin: 01/15/22 08:46 Dose: 400 mg Nitroglycerin (Nitroglycerin 0.4 Mg Tab.Subl) 0.4 mg SUBLINGUAL Q5MIN.X3 PRN PRN Reason: Chest Pain Stop: 01/09/23 14:40 Pom Eszopiclone 3 Mg (Tablet) 3 mg PO HS [facility] Stop: 01/11/23 21:59 Last Admin: 01/14/22 21:32 Dose: 3 mg Nystatin (Nystatin 100,000 Unit/Gram Powder 15 Gm Bottle) 1 applic TOPICAL TID [facility] Stop: 01/09/23 21:59 Last Admin: 01/15/22 [...] <Electronically signed by MD Frankie Reynolds> 01/15/221220 [facility] Work Phone: Progress note Author Raji Ennis [facility] January 15, 2022 4:51pmNote Date/TimeNov2021 4:51pm[place] [address] Hospitalist Progress Note Signed Patient: Tavo Wallis Jr MR# : [id number] : 1940 Acct:[id number] Age/Sex: 81 / M Adm Date: 2 Loc: Room: [address] [place] [address] Type: ADM IN Attending Dr: Raji Ennis [...] Propionate 1 spray 01/09/22 15:17 Fluticasone Propionate [place] 120 [place]/16 Gm Bottle NARES-BOTH 01/09/23 15:16 QHS PRN [...] tomorrow. Documented By: Raji Ennis MD 01/15/22 1642 Signed By: <Electronically signed by Raji Ennis MD> 01/15/22 1651 [facility] Work Phone: Progress note Author Mitchell Reyes [facility] Hospital[facility] Date/TimeJanuary 2024 12:33pm [place] [address] Hospitalist Progress Note Signed Patient: Tavo Wallis Jr MR# : [id number] : 1940 Acct:[id number] Age/Sex: 83 / M Adm Date: 5 Loc: 3T Room: [address] [place] [address] Type: ADM IN Attending Dr: Mitchell Reyes [...] lumbar decompression surgery 2 weeks ago in [facility]. No complications otherwise. PT OT and pain [...] Tablet PO 03/11/25 06:29 Not Given DAILY@0630 [facility] Eszopiclone 3 Mg 3 mg 03/10/24 22:00 03/11/24 00:18 Tablet PO 03/10/25 21:59 Not Given QHS [facility] Oxycodone/Acetaminophen 1 tab 03/10/24 13:54 03/10/24 18:29 [...] signed by Mitchell Reyes MD> 03/11/24 1233 [facility] Work Phone: Progress note Author Michele Knight [facility] Date/TimeJanuary 2024 5:12pm[place] [address] Hospitalist Progress Note Signed Patient: Tavo Wallis Jr MR# : [id number] : 1940 Acct:[id number] Age/Sex: 83 / M Adm Date: 5 Loc: Room: [address] [place] [address] Type: ADM IN Attending Dr: Michele Knight [...] Tablet PO 03/11/25 06:29 Not Given DAILY@0630 [facility] Eszopiclone 3 Mg 3 mg 03/10/24 22:00 [...] lumbar decompression surgery 2 weeks ago in [facility]. No complications otherwise. PT OT and pain control. Continue treatment for chronic medical comorbidities with home regimen. Recent lumbar fusion surgery February 2024 A-fib on Eliquis HFrEF Hypothyroid Hypertension BPH Dyslipidemia Gout Sleep apnea Obesity class I Diet: regular Daily Labs: BMP Lines/Drains: PIV, Cohu DVT ppx: apixiban 5 mg bid for afib Code status: Full Status: inpatient Discussed with patient at bedside. All questions answered. In agreement with theabove plan. Michele Knight MD Internal Medicine Hospitalist Attending Physician Documented By: Michele Knight MD 03/12/241705 Signed By: <Electronically signed by Michele Knight MD> 03/12/241711 [facility] Work Phone: Progress note Author Michele Knight [facility] Date/TimeJanuary 2024 6:00pm[place] [address] Hospitalist Progress Note Signed Patient: Tavo Wallis Jr MR# : [id number] : 1940 Acct:[id number] Age/Sex: 83 / M Adm Date: 5 Loc: 3T Room: [address] [place] [address] Type: ADM IN Attending Dr: Michele Knight [...] lumbar decompression surgery 2 weeks ago in [facility]. No complications otherwise. PT OT and pain [...] signed by Michele Knight MD> 03/13/24 1800 [facility] Work Phone: Progress note Author Michele Knight [facility] Date/TimeJanuary 2024 4:13pm[place] [address] Hospitalist Progress Note Signed Patient: Tavo Wallis Jr MR# : [id number] : 1940 Acct:[id number] Age/Sex: 83 / M Adm Date: 5 Loc: 3T Room: [address] [place] [address] Type: ADM IN Attending Dr: Michele Knight [...] lumbar decompression surgery 2 weeks ago in [facility]. No complications otherwise. PT OT and pain [...] signed by Michele Knight MD> 03/14/24 1613 [facility] Work Phone: Progress note Author Mario Jordan [facility] Date/TimeMay 2024 2:38pm[place] [address] Hospitalist Progress Note Signed Patient: Tavo Wallis Jr MR# : [id number] : 1940 Acct:[id number] Age/Sex: 83 / M Adm Date: 5 Loc: Room: [address] [place] [address] Type: ADM IN Attending Dr: Mario Jordan [...] gout, cardiomyopathy, history of CHF, was sent [facility] ED from [facility] for chief concern for hematuria. [...] Daily weights - Heart healthy diet - PT/OT-halfway facility - Full code SCD for DVT prophylaxis Documented By: Mario Jordan MD 07/13/24 3563 Signed By: <Electronically signed by Mario Jordan MD> 07/13/24 1438 [facility] Work Phone: Progress note Author Mario Jordan [facility] Date/TimeMay 2024 12:47pm[place] [id number] Hospitalist Progress Note Signed Patient: Tavo Wallis Jr MR# : [id number] : 1940 Acct:[id number] Age/Sex: 83 / M Adm Date: 5 Loc: 4 Room: [address] [place] [address] Type: ADM IN Attending Dr: Mario Jordan [...] gout, cardiomyopathy, history of CHF, was sent [facility] ED from [facility] for chief concern for hematuria. [...] Daily weights - Heart healthy diet - PT/OT-halfway facility - General Surgery consulted for abscess in the right mid leg lateral aspect - Full code SCD for DVT prophylaxis Documented By: Mario Jordan MD 07/14/24 1238 Signed By: <Electronically signed by Mario Jordan MD> 07/14/24 1241 [facility] Work Phone: progress note Author Bryce Villeda [facility] Date/TimeMay 2024 2:20pm[place] [address] Progress Note Signed Patient: Tavo Wallis Jr MR# : [id number] : 1940 Acct:[id number] Age/Sex: 84 / M Adm Date: 5 Loc: Room: [address] [place] [address] Type: ADM IN Attending Dr: Mario Jordan [...] <Electronically signed by Bryce Villeda DO> 07/15/24 1211 [facility] Work Phone: progress note Author Mario Jordan [facility] Date/TimeMay 2024 1:39pm[place] [address] Hospitalist Progress Note Signed Patient: Tavo Wallis Jr MR# : [id number] : 1940 Acct:[id number] Age/Sex: 84 / M Adm Date: 5 Loc: Room: [address] [place] [address] Type: ADM IN Attending Dr: Mario Jordan [...] gout, cardiomyopathy, history of CHF, was sent [facility] ED from [facility] for chief concern for hematuria. [...] Daily weights - Heart healthy diet - PT/OT-halfway facility - Full code SCD for DVT prophylaxis Documented By: Mario Jordan MD 07/15/241334 Signed By: <Electronically signed by Mario Jordan MD> 07/15/24 1339 [facility] Work Phone: Progress note Author Frankie Reynolds [facility] Date/TimeMay 2024 9:28[place] [id number] Infect. Disease Progress Note Signed Patient: Tavo Wallis Jr MR# : [id number] : 1940 Acct:[id number] Age/Sex: 84 / M Adm Date: 5 Loc: Room: [address] [place] [address] Type: ADM IN Attending Dr: Mario Jordan [...] 500 Mg Tablet) 500 mg PO TID [facility] Stop: 07/12/25 21:59 Last Admin: 07/15/24 22:09 Dose: 500 mg Acetaminophen (Acetaminophen 325 Mg Tablet) 650 mg PO Q6HR PRN PRN Reason: Pain Scale 1 - 3 or fever Stop: 07/12/25 16:59 Albuterol/Ipratropium (Ipratropium/Albuterol 0.5-3 Mg 3 Ml Ampul.Neb) 3 ml INHALATION Q6HR PRN PRN Reason: shortness of breath or wheezing Stop: 07/12/25 16:56 Allopurinol (Allopurinol 300 Mg Tablet) 300 mg PO DAILY [facility] Stop: 07/13/25 08:59 Last Admin: 07/15/24 08:33 Dose: 300 mg Apixaban (Apixaban 5 Mg Tablet) 5 mg PO BID [facility] Stop: 07/15/25 20:59 Last Admin: 07/15/24 22:09 Dose: 5 mg Atorvastatin Calcium (Atorvastatin 40 Mg Tablet) 40 mg PO DAILY [facility] Stop: 07/13/25 08:59 Last Admin: 07/15/24 08:33 Dose: 40 mg Bumetanide (Bumetanide 1 Mg Tablet) 1 mg PO DAILY@0800 [facility] Stop: 07/15/25 07:59 Last Admin: 07/15/24 08:33 Dose: 1 mg Cefepime HCl (Maxipime) 2 gm in 50 mls @ 12.5 mls/hr IV Q12H [facility] Last Admin: 07/15/24 20:05 Dose: 12.5 mls/hr Vancomycin HCl (Vancomycin) 1 gm in 250 mls @ 250 mls/hr IV Q24H [facility] Levothyroxine Sodium (Levothyroxine 150 Mcg Tablet) 150 mcg PO DAILY.0630 [facility] Stop: 07/13/25 06:29 Last Admin: 07/16/24 05:21 Dose: 150 mcg Magnesium Oxide (Magnesium Oxide 400 Mg Tablet) 400 mg PO DAILY [facility] Stop: 07/13/25 08:59 Last Admin: 07/15/24 08:33 Dose: 400 mg Eszopiclone 3 Mg (Tablet) 3 mg PO QHS [facility] Stop: 07/12/25 21:59 Last Admin: 07/15/24 22:09 [...] is just weak and is upper thighs. [facility] and off therapy only happens once a day and it sounds like he sits in a chair or bed for the rest of thetime. This is according to his family member. Documented By: Frankie Reynolds MD 07/16/24918 Signed By: <Electronically signed by MD Frankie Reynolds> 07/16/24927 [facility] Work Phone: Progress note Author Mario Jordan [facility] Date/TimeMay 2024 2:59pm[place] [address] Hospitalist Progress Note Signed Patient: Tavo Wallis Jr MR# : [id number] : 1940 Acct:[id number] Age/Sex: 84 / M Adm Date: 5 Loc: Room: [address] [place] [address] Type: ADM IN Attending Dr: Mario Jordan [...] gout, cardiomyopathy, history of CHF, was sent [facility] ED from [facility] for chief concern for hematuria. [...] Daily weights - Heart healthy diet - PT/OT-halfway facility - Full code SCD for DVT prophylaxis Documented By: Mario Jordan MD 07/16/241454 Signed By: <Electronically signed by Mario Jordan MD> 07/16/24 1459 [facility] Work Phone: Progress note Author Frankie Reynolds [facility] Date/TimeMay 2024 8:51[place] [address] Infect. Disease Progress Note Signed Patient: Tavo Wallis Jr MR# : [id number] : 1940 Acct:[id number] Age/Sex: 84 / M Adm Date: 5 Loc: 4 Room: 3O4824-4 Type: ADM IN Attending Dr: Mario Jordan [...] 500 Mg Tablet) 500 mg PO TID [facility] Stop: 07/12/25 21:59 Last Admin: 07/17/24 08:15 Dose: 500 mg Acetaminophen (Acetaminophen 325 Mg Tablet) 650 mg PO Q6HR PRN PRN Reason: Pain Scale 1 - 3 or fever Stop: 07/12/25 16:59 Albuterol/Ipratropium (Ipratropium/Albuterol 0.5-3 Mg 3 Ml Ampul.Neb) 3 ml INHALATION Q6HR PRN PRN Reason: shortness of breath or wheezing Stop: 07/12/25 16:56 Allopurinol (Allopurinol 300 Mg Tablet) 300 mg PO DAILY [facility] Stop: 07/13/25 08:59 Last Admin: 07/17/24 08:15 Dose: 300 mg Apixaban (Apixaban 5 Mg Tablet) 5 mg PO BID [facility] Stop: 07/15/25 20:59 Last Admin: 07/17/24 08:15 Dose: 5 mg Atorvastatin Calcium (Atorvastatin 40 Mg Tablet) 40 mg PO DAILY [facility] Stop: 07/13/25 08:59 Last Admin: 07/17/24 08:15 Dose: 40 mg Bumetanide (Bumetanide 1 Mg Tablet) 1 mg PO DAILY@0800 [facility] Stop: 07/15/25 07:59 Last Admin: 07/17/24 08:15 Dose: 1 mg Cefepime HCl (Maxipime) 2 gm in 50 mls @ 12.5 mls/hr IV Q12H [facility] Last Admin: 07/17/24 08:15 Dose: 12.5 mls/hr Vancomycin HCl (Vancomycin) 1 gm in 250 mls @ 250 mls/hr IV Q24H [facility] Last Infusion: 07/16/24 12:00 Dose: Infused Levothyroxine Sodium (Levothyroxine 150 Mcg Tablet) 150 mcg PO DAILY.0630 [facility] Stop: 07/13/25 06:29 Last Admin: 07/17/24 08:15 Dose: 150 mcg Magnesium Oxide (Magnesium Oxide 400 Mg Tablet) 400 mg PO DAILY [facility] Stop: 07/13/25 08:59 Last Admin: 07/17/24 08:16 Dose: 400 mg Eszopiclone 3 Mg (Tablet) 3 mg PO QHS [facility] Stop: 07/12/25 21:59 Last Admin: 07/16/24 22:10 [...] <Electronically signed by MD Frankie Reynolds> 07/17/2451 [facility] Work Phone: Reason for referral (narrative)* Consultation (Routine) - AuthorizedSpecialtyDiagnoses / ProceduresReferred By Contact Referred To ContactCardiology Diagnoses Heart failure, NYHA class 2 (Multi) Procedures Follow Up In Cardiology Tavo Mcintyre DO [address] [facility], [address] [place], [place] [id number] Tavo Mcintyre DO [address] [facility], [address] [place] [address] Referral IDStatusReasonStart DateExpiration DateVisits RequestedVisits [id number]/ [facility] Work Phone: Revpio for referral (narrative)No reason for referral information availableParma Community [facility] Work Phone: Chief Complaint * [...] July 2021. 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 He denies any palpitations or fast heartbeats. [...] and Reason for Visit Chief Complaint [facility] Chief Complaint E03.9 I10 I48.91 fallReason for VisitAcute decompensated heart failure Acute exacerbation of chronic low back pain Elevated troponin Fall Hypoxemia Chief Complaint E03.9 I10 I48.91 fallReason for VisitAcute decompensated heart failure Acute exacerbation of chronic low back pain [id number] Acute respiratory failure with hypoxia Altered mental [...] Acute exacerbation of chronic low back pain [id number] Acute respiratory failure with hypoxia Altered mental [...] Acute exacerbation of chronic low back pain [id number] Acute respiratory failure with hypoxia Altered mental [...] May 28, 2024 8:2 5am I48.91,M48.062,Z48.811,G93.41,M54.50 Apr id 2024 9:25am Chief Complaint Admit Date Lethargic March 10, 2024 11 :26am Z47.89 April 03, 2024 3 :19pm 148.91 N18.3 April 23, 2024 10:53am i11.0 i50.33 ga3.41 i48.91 r33.9 z48.811 April 30, 2024 8:20am R33.9 May 07, 2024 8:58 am I48.91, N18.3, I50.33, G93.41, M48.062 M arch 2024 10:45am I48.91,I11.0,I50.33,M48.062,Z48.811 [facility] h 2024 7:13am Z48.811 111.0 May 28, 2024 8:2 5am I48.91,M48.062,Z48.811,G93.41,M54.50 Jun 9:25am I48.2, N18.3, I11.0, M48.062 June 11, 2024 7:09am Chief Complaint Admit Date Z47April 03, 2024 3 :19pm 148.91 N18.3 April 23, 2024 10:53am i11.0 i50.33 ga3.41 i48.91 r33.9 z48.811 April 30, 2024 8:20am R33.9 May 07, 2024 8:58 am I48.91, N18.3, I50.33, G93.41, M48.062 M arch 2024 10:45am I48.91,I11.0,I50.33,M48.062,Z48.811 [facility] h 2024 7:13am Z48.811 111.0 May 28, [...] 8:58 am I48.91, N18.3, I50.33, G93.41, M48.062 [facility] 2024 10:45am I48.91,I11.0,I50.33,M48.062,Z48.811 [facility] 2024 [...] am I48.91, N18.3, I50.33, G93.41, M48.062 M [facility] 2024 10:45am I48.91,I11.0,I50.33,M48.062,Z48.811 [facility] 2024 7:13am Z48.811 111.0 May 28, [...] 11 :01am hospital f/u - subdural hematoma [facility] 2024 9:43am Chief Complaint Admit Date Urine drop-off September 14, 2024 10:5 0am lumbar pain September 18, 2024 3:12 pm recent uti, afib, chronic chou September 12:45pm Ref: Dr. Daily Perez UTI October 04, 2024 1:51 pm Fall October 05, 2024 9:1 3pm fallOctober 07, 2024 7:0 5am I62.9 October 31, 2024 11 :01am hospital f/u - subdural hematoma [facility] 2024 9:43am M81.0 November 29, 2024 [...] 11 :01am hospital f/u - subdural hematoma [facility] 2024 9:43am M81.0 November 29, 2024 [...] 11 :01am hospital f/u - subdural hematoma [facility] 2024 9:43am M81.0 November 29, 2024 [...] No April 05, 2023 4:20pm Date ActivatedDate LcpqiwobbxbIhgplmvl58/17/2024 7:35 AM Advance Directive Response Recorded Date/ Time Advance Directives No April 05, 2023 3:20pm Summary Purpose Additional Source Comments REASON FOR VISIT (unrecogniz ed section and content) ReasonCommentsAnnual Jsct0weBuvswvTsebqxhqKsl-vx ClearanceLumbar fusionSpecialty Diagnoses / ProceduresReferred By ContactReferred To Contact Diagnoses Preop cardiovascular exam Procedures ECG 12 Lead Tavo Mcintyre DO [address] [facility] [place] [address] Phone: tel: fax: Referral IDStatusReasonStart DateExpiration DateVisits RequestedVisits [id number]/202412/[id number] / Procedures Referred By ContactReferred To Contact [...] Burris MD [address] [place] [address] [place] [address] [facility] [address] [place] [address] Referral IDStatusReasonStart DateExpiration DateVisits RequestedVisits [id number] PatientDebridement of Nail Care Teams (unrecognized sec [...] DO Primary Care Provider Active Natacha Rodarte CLOTH BLEACHING RANGE OPERATOR CHIEF-CAttending ProviderActive Team Status: Active Member Role Status [...] MemberRelationshipSpecialty Start DateEnd Date Opal Ga DO [facility]01/05/21 Team Status: Inactive Member Role Status Dates [...] Dates Bhupinder Mcintyre DO Specialist Active PAULA Garcialafourche, [facility] [place] Care ProviderActive Team Status: Inactive Member Role Status Dates Opal Ga DO Primary Care Provide r, Attending Provider Active Start: September 21, 2023 End: September 21, 2023 Team Status: Inactive Member Role Status Wil Ga DO Primary Care Provide r, Attending Provider Active Start: December 27, 2023 End: December 27, 2023Team MemberRelationshipSpecialtyStart DateEnd Date Opal Ga DO [facility]01/05/21Team MemberRelationshipSpecialtyStart DateEnd Date Opal Ga DO [facility] Team Status: Inactive Member Role Status Dates [...] ProviderActiveStart: July 12, 2024 End: July 17herve oWng MDOther ProviderActiveStart: July 12, 2024 End: July 17, 2024Elizabeth Velázquez ProviderActiveStart: July 12, 2024 End: July 17sandhya Larry , CLOTH BLEACHING RANGE OPERATOR CHIEF-COther ProviderActiveStart: July 12, 2024 End: July 17guanakito Gomez CHIEF TECHNICAL OFFICER-BCOther ProviderActiveStart: July 12, 2024 End: July 17, [...] Tom MDOther ProviderActiveStart: 2024 Nkechi Larry , CLOTH BLEACHING RANGE OPERATOR CHIEF-COther ProviderActiveStart: 2024 Ella Gomez CHIEF TECHNICAL OFFICER-BCOther ProviderActiveStart: 2024 Bryce Villeda DOOther ProviderActiveStart: 2024 Jennifer Vargasending Provider, Other ProviderActiveStart: 2024 Team Status: Active Member Role Status Dates DO Jacqueline Baron Active PHYSICIAN NO FAMILYPrimary Care ProviderActive Team Status: Active Member Role Status Dates Melvi Qureshi SIZING MACHINE TENDER Emergency Provider Active S tart: 2024 Sandip [...] Start: September 18, 2024 End: September 18Clarisa Hassannorthport medical centershelia Care ProviderActiveStart: September 18, 2024 [...] Sta rt: December 27, 2024 Cristy Prince CLOTH BLEACHING RANGE OPERATOR CHIEF-CAttending ProviderActiveStart: December 27, 2024 Team Status: Inactive [...] section and content) DATE CREATED AUTHOR 07/09/2022 [facility] DATE CREATED AUTHOR AUTHOR'S ORGANIZ ATION 07/09/2022 [facility] DATE CREATED AUTHOR AUTHOR'S ORGANIZ ATION 07/16/2022 [facility] DATE CREATED AUTHOR AUTHOR'S ORGANIZ ATION 03/16/2024 [facility] DATE CREATED AUTHOR AUTHOR'S ORGANIZ ATION 08/04/2024 [facility] DATE CREATED AUTHOR AUTHOR'S ORGANIZ ATION 08/16/2024 [facility] DATE CREATED AUTHOR AUTHOR'S ORGANIZ ATION 10/20/2024 [facility] DATE CREATED AUTHOR AUTHOR'S ORGANIZ ATION 01/03/2025 [facility] Ordered Prescriptions (unrec ognized section [...] injection by adding 1 mL of document clerk-supplied sterile diluent or sterile water for injection [...] or prosecute any alcohol or drug abuse patient.[facility] FOR RECORDS PERTAINING TO PATIENTS WHO ARE [...] BE BASED ON THE PRIMARY CLINICAL RECORDS. [facility]. provides no warranty or guarantee of the accuracy or completeness of information in this document.
--- NOTE | 2025-01-28 10:37 | SWNOTE1 ---
SW reached Mitzi at [facility] and pt is from there skilled.
--- NOTE | 2025-01-28 10:46 | PM.DS1 ---
DS: Providers Provider Date of admission: 01/27/25 12:00 Primary care physician: Feliciano Ambrosio DO Consults: 01/26/25 18:02 Occupational Therapy Eval and Treat Routine Reason for consultation: Weakness Physical Therapy Eval and Treat Routine Reason for consultation: Weakness DS: Diagnosis Discharge Diagnosis (1) Pleural effusion: (2) Catheter-associated urinary tract infection: Plan As listed above, below and others that are not listed DS: Summary Hospital Course Hospital Course: Mr. Mendes is an 84-year-old gentleman who was sent to the emergency [place] [facility] [place] with change in mental status. He was found to have the following: CAUTI present on admission Last admission, patient grew Bibiana and Achromobacter that is multidrug resistant I started patient on ceftazidime. Urine culture at this time is, back positive for Pseudomonas which is partially resistant to ceftazidime. Changed to oral Levaquin based on sensitivity report and patient's allergy list. Patient will be discharged on oral Levaquin 500 mg daily. Altered mental status, likely mild degree of metabolic encephalopathy secondary to UTI. CT head is negative for acute intracranial process Patient is moving his upper and lower extremities symmetrically. Same as baseline. Mental status is not far from baseline based on my examination as compared to last admission status. Patient is back to baseline cognitive and functional status. Patient is essentially bedbound. He may be able to stand up and take a few steps with assist otherwise. Chronic A-fib with chronic elevation of the troponin. Suspect underlying CAD Patient denies any chest pain. EKG does not show ST elevation or depression. His troponin has been elevated above 120 since April 2024. No old records available. Recent echocardiogram showed normal ejection fraction. Severe biatrial dilatation. I do not suspect that patient is having acute coronary syndrome or acute plaque rupture Continue Cardizem. Last admission at [facility], cabana attendant recommended against anticoagulation due to previous recent history of cerebral hemorrhage. Last admission at [facility], cabana attendant recommended consideration for Watchman device. Daughter declined to proceed at that time. Discussed with his daughter who is interested in medical management without intervention. Anemia, no evidence of acute blood loss. Patient will likely require to have anemia workup to be done in the outpatient setting to be handled by PCP in collaboration with other needed outpatient providers. This may include but not limited to EGD, colonoscopy, referral to see hematology and other needed age-appropriate cancer screening. Right heel ulcer that previously grew MRSA patient was treated with oral Zyvox. The wound is healing at this time no evidence of drainage. CAT scan of the foot was completed last month which does not show any evidence of bony destruction to suggest osteomyelitis. I ordered arterial study last admission which does not show any significant hemodynamic or arterial compromise. Last admission a month ago, I ordered MRI but the patient could not lay down for the MRI due to severe kyphosis. Continue wound care at this time. We will arrange for patient to follow-up with podiatry. (Dr. Cabrera) in the outpatient setting. Pleural effusion, parenchymal abnormality seen on CT abdomen Requested CT chest to take a better look at the lung parenchyma, assess the degree of effusion and rule out the possibility of underlying malignancy. CAT scan does not show any malignancy. Interstitial edema however patient is not having respiratory distress or hypoxemia. Recent echocardiogram showed normal ejection fraction, biatrial enlargement. Significant cachexia, frailty, muscle wasting, sarcopenia, failure to thrive, moderate to severe protein calorie malnutrition, significant loss of subcutaneous fat Additional cachexia and weight loss investigation may be needed to rule out underlying malignancy. This will need to be done post acute care if her daughter wants to pursue that option. For now we will start patient on protein oral supplementation. 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 Unable to engage in complex conversation. Patient is barely able to lift up his legs against gravity if any. Prior to that patient was able to take a few steps and pivot. I believe he is a Iveth lift at nursing facility. Significant muscle wasting and atrophy, sarcopenia Recommend protein oral supplementation to boost his nutritional state. Recommend PT OT eval and treatment. [facility]. Prognostication and goals of care discussion Overall patient has poor prognosis given his age, significant decline in his functional status, cachexia, frailty and failure to thrive. His ECOG score is 3- 4. His MELENDREZ score is 1. PPS is 30% FAST score is 7 A-B I had a conversation with his daughter on 01/27 regarding his overall declining condition and prognostication. Daughter understood the situation very well and agreed not to put him through any heroic measures such as intubation, shocks, life support, chest compression or any other aggressive diagnostic and/or therapeutic intervention. She is interested in making sure that her dad is comfortable and treated with patient dignity of the last phase of his life. Her wishes are consistent with a DNR CCA status with more focus toward comfort care approach rather than aggressive care that may be futile at this time Time Spent with Patient Time attestation: Total time spent providing and/or coordinating discharge services: Exam Narrative Exam Narrative: Patient is lying in bed. Awake and alert. Able to look at me and focus. Able to answer few questions. Symmetrical motor and tone. Able to lift up his arms against mild resistance. Able to lift up his legs against gravity but not against significant resistance. Very cachectic and frail in appearance. Bitemporal muscle wasting. Significant loss of subcutaneous fat. Significant loss of muscle wasting. Severe kyphosis of the chest. Chest is clear otherwise. Heart is irregular. Abdomen is soft, scaphoid in appearance, nontender. Stage II right heel ulceration which had improved since last time I saw him. Constitutional Vital Signs, click to edit/add: Last Vital Signs Temp 98.1 F 01/28/25 07:29 Pulse 85 01/28/25 10:23 Resp 16 01/28/25 07:29 BP 146/73 H 01/28/25 07:29 Pulse Ox 95 01/28/25 10:23 O2 Del Method Room Air 01/28/25 10:23 DS: Data Data Completed and Pending Labs on day of discharge: Labs from last 24 hours 01/28/25 04:51 WBC 4.8 RBC 2.88 L Hgb 8.3 L Hct 26.4 L MCV 91.7 MCH 28.8 MCHC 31.4 RDW 17.9 H Plt Count 168 MPV 10.1 Sodium 134 L Potassium 4.2 Chloride 102 Carbon Dioxide 27.7 Anion Gap 8.5 BUN 17.0 Creatinine 0.85 Est GFR ( Amer) >60 Est GFR (Non-Af Amer) >60 BUN/Creatinine Ratio 20.0 Glucose 90 Calcium 8.7 Preliminary micro results at discharge 01/26/25 12:24 Urine Culture - Preliminary Urine,Clean Catch Pending - [facility] Plan Discharge Disposition: Xfer SNF Discharge Medications: New levofloxacin 500 mg tablet 500 mg PO DAILY 7 Days Qty: 7 0RF Continued nystatin [Klayesta] 100,000 unit/gram powder 1 applic TOPICAL BID pramipexole 0.25 mg tablet 0.25 mg PO QDAY PRN (Reason: tremors) acetaminophen [Tylenol] 325 mg Tablet 650 mg PO Q6H PRN (Reason: Pain or fever) Qty: 0 0RF pantoprazole 40 mg Tablet,Delayed Release (Dr/Ec) 40 mg PO DAILY Qty: 30 0RF diltiazem HCl 120 mg Capsule,Extended Release 24hr 120 mg PO QD Qty: 0 0RF heparin (porcine) 5,000 unit/mL Solution 5,000 unit subcut Q12H Qty: 0 0RF Patient Comments: LAST DOSE DUE 01/29/25@ 2100 polyethylene glycol 3350 17 gram Powder In Packet 17 g PO QD PRN (Reason: Constipation) Qty: 0 0RF ipratropium-albuterol 0.5 mg-3 mg(2.5 mg base)/3 mL solution for nebulization 3 ml INHALATION Q8H PRN (Reason: Wheezing) Qty: 0 0RF allopurinol 300 mg tablet 300 mg PO DAILY atorvastatin 40 mg tablet 40 mg PO .QHS levothyroxine 150 mcg tablet 150 mcg PO .qd magnesium oxide 400 mg (241.3 mg magnesium) tablet 400 mg PO .qd Santyl 250 unit/gram ointment 1 applic topical DAILY Rx Instructions: APPLY TO RIGHT HEEL Changed sennosides-docusate sodium 8.6-50 mg Tablet 2 tab PO .QHS PRN (Reason: Constipation) Qty: 0 0RF Discontinued budesonide 0.5 mg/2 mL suspension for nebulization 0.5 mg inhalation Q12H potassium chloride 20 mEq tablet,ER particles/crystals 10 meq PO DAILY Qty: 0 0RF bumetanide 1 mg tablet 1 mg PO DAILY baclofen 10 mg tablet 10 mg PO Q8H PRN (Reason: muscle spasm) nitrofurantoin monohyd/m-cryst [Macrobid] 100 mg capsule 100 mg PO BID Patient Comments: 01/25/25-02/04/25 Rx Instructions: must administer with a meal/food sodium chloride 1,000 mg tablet,soluble 2,000 mg PO DAILY Print Language: Niuean Activity Restrictions/Additional Instructions: I may not have addressed or treated all of your medical illnesses or the abnormal blood work or imaging studies during this hospitalization. Please ask your primary care provider to obtain [facility] records entirely to follow up on all of the abnormal physical, laboratory, and imaging findings that I have not addressed. Please return back to the emergency room or seek medical attention if your symptoms worsen or return. Discharging you from [facility] does not mean that your medical care ends here and now. You may still need additional monitoring, work up, investigation, and treatment plan to be handled from this point on by out patient providers including your primary care provider and specialists. For any medication question, please contact your retail pharmacist or your primary care provider. For [place] [facility] providers Fall risk DNR CCA Consult wound nurse for wound Please ensure that patient follows up with Dr. Cabrera for footcare Titrate his medications to achieve optimal blood pressure control Change his Chou catheter every 3 to 4 weeks under sterile condition Please offer him Ensure or boost or other type of protein oral supplementation 1 can/1 box twice a day Thank you. Admissions Counselor/Bowling Alley Mechanic Instructions: Discharge back to [facility] skilled Forms: Portal Instructions Follow Up Appointments: Dr Cabrera, Wound Center, Thursday February 06, 2025 at 10:00
--- NOTE | 2025-01-28 12:14 | SWNOTE1 ---
SW met with pt to discuss dc needs. Pt was sitting in recliner watching TV. Pt voiced he needs assistance changing the channel, SW provided assistance. SW asked how he was doing at [facility]. He stated he guesses that he where he was at. SW asked if he was doing therapy over there? He stated he does not recall doing any therapy. SW asked if he plans on going back to longterm facility? He is unsure, but he thinks so. SW asked his daughter's name. He stated Abigail. SW asked permission to call his daughter. Pt gave permission. SW asked pt if he ate lunch? Pt thinks he did. SW asked pt if he needed anything at this time? Pt stated no. SW to call daughter.
--- NOTE | 2025-01-28 12:19 | SWNOTE1 ---
GARY called and spoke to pt's daughter, Abigail. Abigail confirmed she does want him to return [facility] at least another week. Pt is getting therapy at [facility]. GARY faxed updates to [facility]. Updates included face sheet, physician notes, labs, vitals, diagnostic imaging, and med list.
--- NOTE | 2025-01-28 13:35 | CM.NOTE ---
CM in to go over IMM with pt, pt would like his daughter called after 2:00 to go over paper. CM or SW will contact daughter after she gets off work.
[2025-01-28] MEDS: LEVOFLOXACIN IN DEXTROSE 5 % 500 MG/100 ML PREMIX 100 MG IV (14:50)
--- NOTE | 2025-01-28 15:23 | SWNOTE1 ---
Important Message from Medicare reviewed and discussed with patient's daughter, Abigail. Abigail verbalized understanding and signed the form. Original given to patient's daughter and copy placed in patient?s chart.
--- NOTE | 2025-01-28 15:24 | SWNOTE1 ---
GARY spoke with daughter about [facility]. The plan is for him to return for another week or so, February 09, for therapy. She voiced she is not sure if that will be all his Medicare days. She is not sure what to do after that. GARY asked about pt's finances and if [facility] has spoke to them about it. She stated he has a trust. GARY asked about penitentiary care and applying for Medicaid? She stated her brother lives in trailer behind the home. Her and her brother are not on good terms at this time. SW unsure, but does think it is likely they will have to sell house to qualify for Medicaid. GARY and daughter spoke about private caregivers, etc. Pt will likely need 24/7 care at home. Pt's daughter is aware. At this time she is unsure of plans after rehab.
[2025-01-28] MEDS: ATORVASTATIN CALCIUM 40 MG TABLET PO (21:14)
[2025-01-29] VITALS (13 sets, daily range): BP systolic 105–121; BP diastolic 52–66; PULSE 55–90; TEMP 36.6–36.7; O2SAT 92–96
[2025-01-29] MEDS: LEVOTHYROXINE SODIUM 75 MCG TABLET 150 MCG PO (05:39)
--- NOTE | 2025-01-29 08:30 | CM.NOTE ---
Rounds made with Dr. Pepe, pt will discharge to [facility] for skilled therapy. Pt will have f/u scheduled with Dr. Cabrera at discharge.
[2025-01-29] MEDS: PANTOPRAZOLE SODIUM 40 MG TABLET.DR PO (08:38)
[2025-01-29] MEDS: DILTIAZEM HCL 120 MG CAP.ER.24H PO (08:38)
[2025-01-29] MEDS: HEPARIN SODIUM (PORCINE) 5,000 UNIT/ML VIAL 5000 UNIT SUBQ (08:38)
[2025-01-29] MEDS: ALLOPURINOL 300 MG TABLET PO (08:39)
[2025-01-29] MEDS: SENNOSIDES/DOCUSATE SODIUM 1 TAB TABLET 2 TAB PO (08:39)
[2025-01-29] MEDS: MAGNESIUM OXIDE 400 MG TABLET PO (08:39)
[2025-01-29] MEDS: BUDESONIDE 0.5 MG/2 ML AMPULE NEB IH (09:28)
--- NOTE | 2025-01-29 09:47 | SWNOTE1 ---
Pt will be discharged back to [facility] today. SW to set up transport once discharge orders are in.
--- NOTE | 2025-01-29 10:13 | SWNOTE1 ---
GARY called pt's daughter, Abigail, and let her know that pt is discharging back to [facility] today. She did let SW know he would have return in gown because his shirt is in her car. GARY asked preference of stretcher or wheelchair, Abigail advised to ask pt.
--- NOTE | 2025-01-29 10:54 | SWNOTE1 ---
Nurse spoke with pt and he would like to sit in wheelchair. SW called and set up trips and the earliest they could do is 4:15-4:45. SW took that time. SW updated the nurse with time. SW to see if [facility] has transport available.
--- NOTE | 2025-01-29 11:39 | SWNOTE1 ---
SW did ask Mady at [facility] if they had transport, but they do not as they are booked for the day.
--- NOTE | 2025-01-29 12:00 | CM.NOTE ---
CM completed CRF for skilled facility and signed by Dr. Pepe.
--- NOTE | 2025-01-29 12:46 | P.EN_ITS ---
Event Note Event Note: I called his daughter Nicole. I gave her update and information about his disease, prognosis, expectation and trajectory. I answered all her questions Nicole is very appreciative of the care that her dad had received here at [place].
--- NOTE | 2025-01-29 12:46 | SWNOTE1 ---
GARY faxed dc med rec, PT/OT notes from today, and most recent vitals to Mady and Mitzi at [facility].
[2025-01-29] MEDS: LEVOFLOXACIN IN DEXTROSE 5 % 500 MG/100 ML PREMIX 100 MG IV (13:02)
--- NOTE | 2025-01-29 15:12 | SWNOTE1 ---
SW did call pt's daughter Abigail and notified her of discharge time. She stated she called pt and let him know that she was not coming and she called [facility] and let them know to order him a dinner tray. [facility], pt's daughter, and nurse are all aware of [facility] transportation time. GARY took packet and CRF to the med/surge floor.
== END 2025-01-29 16:39 | DRG 698 ==
LOC: ER 15:37 → MS 01-28 10:02
PROVIDERS: Admitting Provider Internal Medicine; Emergency Provider Emergency Medicine; PCP Family Medicine; Visit Provider Internal Medicine
DX: T83.511A Infection and inflammatory reaction due to indwelling urethral catheter, initial encounter (principal); E43 Unspecified severe protein-calorie malnutrition; G93.41 Metabolic encephalopathy; I48.20 Chronic atrial fibrillation, unspecified; L97.419 Non-pressure chronic ulcer of right heel and midfoot with unspecified severity; J90 Pleural effusion, 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; R64 Cachexia; N39.0 Urinary tract infection, site not specified; R79.89 Other specified abnormal findings of blood chemistry; D64.9 Anemia, unspecified; Z86.14 Personal history of Methicillin resistant Staphylococcus aureus infection; R62.7 Adult failure to thrive; Z66 Do not resuscitate; K52.89 Other specified noninfective gastroenteritis and colitis; M62.84 Sarcopenia; B96.5 Pseudomonas (aeruginosa) (mallei) (pseudomallei) as the cause of diseases classified elsewhere; R41.82 Altered mental status, unspecified; Z74.01 Bed confinement status; R91.8 Other nonspecific abnormal finding of lung field; Z68.23 Body mass index [BMI] 23.0-23.9, adult
CPT/HCPCS: 36415; 70450; 71045; 71260; 74176; 80048; 80053; 81001; 82550; 83605; 83735; 84484; 85025; 85027; 87040; 87086; 87088; 87186; 93005; 94640; 96365; 97110; 97162; 97165; 97530; 97535; 99285; J0696; J0713; J1644; J2270; Q9967

== ENCOUNTER 2025-02-06 10:08 | Outpatient (OUT) | payer MEDICARE, BC, SELFPAY ==
--- OUTSIDE RECORDS SUMMARY | 2025-02-06 10:10 | XMS_ITS | Clinical Summary ---
Author Organization [facility] Address [address] [place] [id number] Care Team Providers Care Supervisor Bindery Name Role Phone Unavailable Primary Care Provider Unavailabl e Allergies Active AllergyReactionsCriticalityNoted DateCommentsPenicillinsMental Status Zjvjya1304/07/2004 Medications MedicationSigDispense QuantityRefillsLast FilledStart DateEnd DateStatus SYNTHROID 150 MCG TABLET Take one(1) tablet daily.Active ALLOPURINOL 300 MG TABLET Take one(1) tablet daily.Active HYTRIN 2 MG CAPSULE Take one(1) capsule daily.Active BUMEX 2 MG TABLET Take one(1) tablet daily.Active CELEBREX 200 MG CAPSULE Take one(1) capsule daily.Active LEXAPRO 5 MG TABLET take one half gfhzc341Active VICODIN 5/500 TABLET as sntncs468Active K-DUR 20 MEQ TABLET SA Take one(1) tablet daily.Active Active Problems No known active problems Family History Medical HistoryRelationCommentsAlzheimer's DiseaseMotherCoronary Artery Disease MotherHad CABG when she was olderThyroidSisterHypothyroidismobesitySister RelationStatusCommentsMotherSister Social History Tobacco UseTypesPacks/DayYears UsedDateSmoking Tobacco: EkqvqiHnfdlonobp638 04/07/1964 - 04/07/1994 Comments:Started in High janey ool Alcohol UseStandard Drinks/WeekCommentsYes0 (1 standard drink = 0.6 oz pure alcohol)A few beers every daySex and Gender InformationValueDate RecordedSex Assigned at BirthNot on fileLegal DykFinp07/02/2012 10:06 AM ESTGender Identity Not on fileSexual OrientationNot on fileOccupationIndustryJob Start DateJob End DateNot on fileNot on fileNot on fileNot on file Last Filed Vital Signs Vital SignReadingTime TakenCommentsBlood Ixeohrvj203/85006/28/2024 10:50 AM EDT Ivhfw2470 10:50 AM VIRVnxgkfrlvan56.9 ??C (98.5 ??F)06/28/2024 10:50 AM EDTRespiratory Dsub571506/28/2024 10:50 AM EDTOxygen Ygiqpgvnpb70%06/28/2024 10:50 AM EDTInhaled Oxygen Concentration--Dwgjmm522.2 kg (276 lb)04/07/2004 3:44 PM ESTHeight--Body Mass Index-- Plan of Treatment Health MaintenanceDue DateLast DoneCommentsAnxiety Iijsgqhnd48/11/1960Depression Lnwwgfkat33/11/1960DTaP,Tdap,Td Vaccine (1 - Tdap)1Diabetes Screening 1986Pneumococcal Vaccine: 50+ (1 of 1 - PCV)07/16/1991Shingrix Vaccine (1 of 2)07/16/1991RSV Vaccine (1 - 1-dose 75+ series)2016Advance Directive Gjcgmeivay86/01/2025ovid-19 Vaccine (1 - 2024- season)2024Influenza Vaccine (#1)2024 Insurance
--- OUTSIDE RECORDS SUMMARY | 2025-02-06 10:11 | XMS_ITS | Clinical Summary ---
Author Organization [facility] Address [id number] [address] [place] [address] Care Team Providers Care [id number] Armor Crewman Name Role Phone TjcatieEdmondan Louis HARGROVE Primary Care Provider [phone] Allergies Active AllergyReactionsCriticalityNoted HvgeNwwtnjwwVgvzbups62/20/2021Fentanyl 09/02/20176057Umbgiedlzuxo69/29/4316Sdfshalodlp70/01/2005 Other reaction(s): Mental Status Change Medications MedicationSigDispense [...] MOUTH ONCE EVERY MORNING ON AN EMPTY LAIVITR105Active magnesium oxide (MAG-OX) 400 mg tablet Take [...] DateBenign prostatic hyperplasia (BPH) with urinary urge lpitwninxnel31/07/2019 Overview (05/18/2022): urolift 12/21 (Ameena) Was using [...] standard drink = 0.6 oz pure alcohol)ChildcareAnswerDate SkhqpilsUdlibqarmGcleujo95/04/2019EmploymentAnswer Date AjbnhshdLqsfqkjqjmLkelucd69/04/2019Hunger ScreeningAnswerDate Recorded Within the past 12 months we worried whether our food would run out before we got money to buy more.Never True05/18/2022Within the past 12 months the food we bought just didn't last and we didn't have money to get more.Never True 05/18/2022urpose - LifeAnswerDate RecordedPurpose and direction in lifeUnknown 03/31/2020ex and Gender InformationValueDate RecordedSex Assigned at BirthNot on fileLegal PbcXqnq0910/08/2014 8:36 PM EDTGender IdentityNot on fileSexual OrientationNot on file Last Filed Vital Signs Vital SignReadingTime TakenCommentsBlood Auproodb840/7905/18/2022 11:26 AM EDT Hamcc014405/18/2022 11:26 AM EDTTemperature--Respiratory Ride926605/18/2022 11:26 AM EDTOxygen Saturation--Inhaled Oxygen Concentration--Tcaklu05.6 kg (180 lb) 05/18/2022 11:26 AM OEVMaidbi372.6 cm (5' 6 )05/18/2022 11:26 AM EDTBody Mass Index29.05005/18/2022 11:26 AM EDT Plan of Treatment Health MaintenanceDue DateLast DoneCommentsDepression Fpenjucdk53/11/1954Tobacco Ljhwgrnyz64/11/1954DTaP,Tdap and Td Vaccines (1 - Tdap)1960Zoster (Shingles) Vaccine (1 of 2)07/16/1991Fall Risk Zqrhhizdi47/11/2007RSV ( or age 60+ yrs) (1 - 1-dose 75+ series)2016COVID-19 Vaccine (2024- season)/, 02/18/2021, 05/28/2020, Additional history exists Influenza Gkipydd02/, 12/22/2019, 12/06/2019, Additional history exists Medical Devices Not on file Insurance Care Teams Team MemberRelationshipSpecialtyStart DateEnd Date Feliciano Ambrosio DO PCP - GeneralFamily Medicine06/05/18
--- OUTSIDE RECORDS SUMMARY | 2025-02-06 10:11 | XMS_ITS | Encounter Summary ---
Author Organization [facility] Address [address] [place] [address] Care Team Providers Care Clarifier Operator Name Role Phone Unavailable Primary Care Provider Unavailabl e Encounter Details DateTypeDepartmentCare Team (Latest Contact Info)Qmexfwjtvci87/21/2025External Result Encounter [facility] External Department Unsolicited Mendy Bull MD [address] [facility] [address] [place] [address] Social History Tobacco UseTypesPacks/DayYears UsedDateSmoking Tobacco: Never AssessedSex and Gender InformationValueDate RecordedSex Assigned at BirthNot on fileLegal Sex Male05/19/2022 6:54 PM EDTGender IdentityNot on fileSexual OrientationNot on filedocumented as of this encounter Plan of Treatment Not on file documented as of this encounter Procedures Procedure NamePriorityDate/TimeAssociated DiagnosisCommentsAEROBIC BELLA CHARGE (NMIC56)STAT103/27/2024 9:00 AM EST CULTURE, URINE, QJAJKNJTUQL98/21/2025 9:00 AM EST documented in this encounter Results * (ABNORMAL) AEROBIC BELLA CHARGE (NMIC56) (01/25/2025 9:00 AM EST)ComponentValue Ref RangeTest MethodAnalysis TimePerformed AtPathologist SignatureAMIKACIN<16 (S)01/27/2025 9:27 AM [facility] CtrAZTREONAM<4(I) 01/27/2025 9:27 AM [facility] CtrCEFEPIME<2(S)01/27/2025 9:27 AM [facility] CtrCEFTAZIDIME<1(I)01/27/2025 9:27 AM [facility] CtrCEFTAZIDIME/AVIBACTAM<4(S)01/27/2025 9:27 AM [facility] CtrCEFTOLOZANE/TAZOBACTAM<2(S)01/27/2025 9:27 AM [facility] CtrCIPROFLOXACIN<0.25(S)01/27/2025 9:27 AM [facility] CtrGENTAMICIN<2(S)01/27/2025 9:27 AM [facility] CtrLEVOFLOXACIN<0.5(S)01/27/2025 9:27 AM [facility] CtrMEROPENEM<1(S)01/27/2025 9:27 AM [facility] CtrPIPERACILLIN/TAZOBACTAM<8(I)01/27/2025 9:27 AM [facility] CtrTOBRAMYCIN<2(S)01/27/2025 9:27 AM [facility] CtrSpecimen (Source)Anatomical Location / LateralityCollection Method / VolumeCollection TimeReceived TimeClean-Voided Midstream (Clean Void Midstream)01/25/2025 9:00 AM EST01/25/2025 4:28 PM EST Narrative Authorizing ProviderResult TypeResult StatusMendy Bull MDFIRCHINOOKSFinal Result Performing OrganizationAddressCity/State/ZIP CodePhone Number [facility] [address] [place] [address], [facility] [address] [place] [address] * Urine culture (01/25/2025 9:00 AM EST)ComponentValueRef RangeTest Method Analysis TimePerformed AtPathologist SignatureFRMC ORGANISMPseudomonas hjplgmyrpe14/23/2025 9:27 AM [facility] CtrCOLONY COUNT >100,6272203/29/2024 9:27 AM [facility] CtrSpecimen (Source) Anatomical Location / LateralityCollection Method / VolumeCollection Time Received TimeClean-Voided Midstream (Clean Void Midstream)01/25/2025 9:00 AM EST01/25/2025 4:28 PM EST Narrative [facility] - 01/27/2025 9:30 AM EST Diagnosis: ALTERED MENTAL STATUS Comment: Authorizing ProviderResult TypeResult StatusMendy Bull MDLAB MICROBIOLOGY - GENERAL ORDERABLESFinal ResultPerforming OrganizationAddressCity/State/ZIP Code Phone Number [facility] [address] [place] [address], [facility] [address] [place] [address] documented in this encounter Visit Diagnoses Not on filedocumented in this encounter
--- OUTSIDE RECORDS SUMMARY | 2025-02-06 10:11 | XMS_ITS | Clinical Summary ---
Author Organization [facility] Address [address] [place] [address] Care Team Providers Care Web Development Director Name Role Phone Unavailable Primary Care Provider Unavailabl e Encounters DateTypeDepartmentCare EkyvUtqzvewdbdi47/24/2025bstract [facility] [address] [place] [address] Unallocated, Da Tripp MD 01/25/2025External Result Encounter [facility] External Department Unsolicited Mendy Bull MD 01/25/2025linisync Result Encounter [facility] External Department Unsolicited Mendy Bull MD 01/24/2025bstract [facility] [address] [facility] [address] [place] [address] Unallocated, Noms MD Josee from Last 3 Months Social History Tobacco UseTypesPacks/DayYears UsedDateSmoking Tobacco: Never AssessedSex and Gender InformationValueDate RecordedSex Assigned at BirthNot on fileLegal Sex Male05/19/2022 6:54 PM EDTGender IdentityNot on fileSexual OrientationNot on file Plan of Treatment Not on file Procedures Procedure NamePriorityDate/TimeAssociated DiagnosisCommentsAEROBIC BELLA CHARGE (NMIC56)STAT103/27/2024 9:00 AM EST URINE CULTURE - JVEVJyolqcd76/21/2025 9:00 AM EST [facility] UA (CLEAN/CATCH) MANAGER TRANSITION/MICRO IF IND.Ftedusq5001/25/2025 9:00 AM EST CULTURE, URINE, QRSXOLEMIMZ30/21/2025 9:00 AM EST from Last 3 Months Results * (ABNORMAL) URINE CULTURE - [facility] (01/25/2025 9:00 AM EST)ComponentValueRef RangeTest MethodAnalysis TimePerformed AtPathologist SignatureURINE CULTURE - [facility] ??Urine Culture - [facility] SEEFR FR RESULT^[facility] RESULT (A)[facility] SEE SCANNED REPORT, ABNORMAL^SEE SCANNED REPORT, ABNORMAL(A)TBHSpecimen (Source)Anatomical Location / LateralityCollection Method / VolumeCollection TimeReceived Time01/25/2025 9:00 AM EST01/25/2025 1:40 PM EST Narrative [facility]INIS[facility] - 01/27/2025 5:39 PM EST Authorizing ProviderResult TypeResult StatusMendy SUTHERLAND BLOOD ORDERABLES Final ResultPerforming OrganizationAddressCity/State/ZIP CodePhone Number [facility] * (ABNORMAL) AEROBIC BELLA CHARGE (NMIC56) (01/25/2025 9:00 AM EST)ComponentValue Ref RangeTest MethodAnalysis TimePerformed AtPathologist SignatureAMIKACIN<16 (S)01/27/2025 9:[address] [facility] CtrAZTREONAM<4(I) 01/27/2025 9:[address] [facility] CtrCEFEPIME<2(S)01/27/2025 9:[address] [facility] CtrCEFTAZIDIME<1(I)01/27/2025 9:[address] [facility] CtrCEFTAZIDIME/AVIBACTAM<4(S)01/27/2025 9:[address] [facility] CtrCEFTOLOZANE/TAZOBACTAM<2(S)01/27/2025 9:[address] [facility] CtrCIPROFLOXACIN<0.25(S)01/27/2025 9:27 AM [facility] CtrGENTAMICIN<2(S)01/27/2025 9:[address] [facility] CtrLEVOFLOXACIN<0.5(S)01/27/2025 9:[address] [facility] CtrMEROPENEM<1(S)01/27/2025 9:[address] [facility] CtrPIPERACILLIN/TAZOBACTAM<8(I)01/27/2025 9:[address] [facility] CtrTOBRAMYCIN<2(S)01/27/2025 9:[address] [facility] CtrSpecimen (Source)Anatomical Location / LateralityCollection Method / VolumeCollection TimeReceived TimeClean-Voided Midstream (Clean Void Midstream)01/25/2025 9:00 AM EST01/25/2025 4:28 PM EST Narrative Authorizing ProviderResult TypeResult StatusMendy Bull MDFIRELANDSFinal Result Performing OrganizationAddressCity/State/[facility] CodePhone Number [facility] [address] [phone], [facility] [address] [place] [address] * (ABNORMAL) [facility] UA (CLEAN/CATCH) MANAGER TRANSITION/MICRO IF IND. (01/25/2025 9:00 AM EST) ComponentValueRef [...] RangeTest Method Analysis TimePerformed AtPathologist SignatureFRMC ORGANISMPseudomonas gjmxhjhsev28/23/2025 9:[address] [facility] CtrCOLONY COUNT >100,9795703/29/2024 9:[address] [facility] CtrSpecimen (Source) Anatomical Location / LateralityCollection Method / VolumeCollection Time Received TimeClean-Voided Midstream (Clean Void Midstream)01/25/2025 9:00 AM EST01/25/2025 4:28 PM EST [facility] - 01/27/2025 9:30 AM EST Diagnosis: ALTERED MENTAL STATUS Comment: Authorizing ProviderResult TypeResult StatusMendy SUTHERLAND MICROBIOLOGY - GENERAL ORDERABLESFinal ResultPerforming OrganizationAddressCity/State/ZIP Code Phone Number [facility] [address] [place] [address], [facility] [address] [place] [address] from Last 3 Months Insurance
--- OUTSIDE RECORDS SUMMARY | 2025-02-06 10:11 | XMS_ITS | Clinical Summary ---
Author Organization [facility] Address [address] [place] [address] Phone Care Team Providers Care Educational Paraprofessional Name Role Phone Feliciano mAbrosio Louis HARGROVE Primary Care Provider Allergies Active AllergyReactionsCriticalityNoted DateCommentsFentanylDizziness,Nausea Only02/16/20232009YaduovcjzlfeMnjzg16/13/4155WnwzjovffzxViorc32/13/2023Zolpidem Spwiyxr1802/16/2023 Medications MedicationSigDispense QuantityRefillsLast FilledStart DateEnd DateStatus acetaminophen [...] current use of anticoagulant therapy 02/16/2024MI 30.0-30.9,adult02/16/2024Former nwkood4202/16/2024hronic atrial susuadztvsql30/13/2023Echocardiogram jpidruae49/13/6108Jzkox33/13/2023rimary jgunjuazawyv26/13/2023Heart failure, NYHA class 212/Hyperlipemia 02/16/2023Mild CAD02/16/2023 Resolved Problems ProblemNoted DateDiagnosed DateResolved DateNon-ischemic cardiomyopathy Encounters DateTypeDepartmentCare SceuUnhnnztcdfq80/09/2025Scanned Document [facility] [address] [place] [address] Scanning, Generic Provider 11/23/2024Refill [facility] [address] [address] Irineo Mcintyre, Chronic atrial fibrillation (Multi); Essential hypertension, benign; Non-ischemic cardiomyopathy (Multi)from Last 3 Months Immunizations ImmunizationAdministration DatesNext DueInfluenza, Ryklouxuxlf79/01/2019, 11/05/2017,04/07/2016Pneumococcal conjugate vaccine, 13-valent (PREVNAR 13) 04/07/2016 Family History Medical HistoryRelationNameCommentsNo Known ProblemsMotherRelationNameStatus CommentsMother Social History Tobacco UseTypesPacks/DayYears UsedDateSmoking Tobacco: FormerCigarettesQuit: 1980Smokeless Tobacco: Never Tobacco Cessation:Counseling Given: Yes Alcohol UseStandard Drinks/WeekCommentsYes3 (1 standard drink = 0.6 oz pure alcohol)Sex and Gender InformationValueDate RecordedSex Assigned at BirthNot on fileLegal QvvTojk31/26/2022 2:53 PM ESTGender IdentityNot on fileSexual OrientationNot on file Last Filed Vital Signs Vital SignReadingTime TakenCommentsBlood Tqfjpxxf389/8602/16/2024 3:20 PM EST Derbt68018/12/2024 3:20 PM ESTTemperature--Respiratory Rate--Oxygen Saturation-- Inhaled Oxygen Concentration--Pjoxba14.6 kg (191 lb)02/16/2024 3:20 PM ESTHeight 167.6 cm (5' 6 )02/16/2024 3:20 PM ESTBody Mass Index30.8302/16/2024 3:20 PM EST Plan of Treatment DateTypeDepartmentCare Team (Latest Contact Info)Xilaaunofal93/09/2025 10:00 AM ESTOffice Visit [facility] [address] [address] Enedelia Gomez, RN [facility] [address] [facility] [address] [place] [address] Health MaintenanceDue DateLast DoneCommentsCreatinine Level1941Lipid Panel 1941Medicare Annual Wellness Visit (AWV)2Potassium Level 1941TSH Level2Diabetes Iudnsgvlo96/11/1960DTaP/Tdap/Td Vaccines (1 - Tdap)07/16/1963Zoster Vaccines (1 of 2)07/16/1991Pneumococcal Vaccine (2 of 2 - PPSV23, PCV20, or PCV21)RSV High Risk: (Elderly (60+) or Population) (1 - 1-dose 75+ series)2016Influenza Vaccine (#1) 510/, 12/24/2021, 12/22/2019, Additional history existsCOVID-19 Vaccine ( season)510/, 02/18/2021, 05/28/2020, Additional history zuqecnFtssqemxfgpvwy69/09/202610/11/2024, 02/23/2024, 01/10/2022, Additional history existsHIB VaccinesAged OutNo [...] DateEnd Date Feliciano Ambrosio DO PCP - Rebyxhv91/1/21
--- OUTSIDE RECORDS SUMMARY | 2025-02-06 10:11 | XMS_ITS | Encounter Summary ---
Author Organization [facility] Address [address] [place] [address] Care Team Providers Care Corporate Lawyer Name Role Phone Unavailable Primary Care Provider Unavailabl e Encounter Details DateTypeDepartmentCare Team (Latest Contact Info)Hagplfgwqwe70/21/2025linisync Result Encounter [facility] External Department Unsolicited Mendy Bull MD [address] [facility] [address] [place] [address] Social History Tobacco UseTypesPacks/DayYears UsedDateSmoking Tobacco: Never AssessedSex and Gender InformationValueDate RecordedSex Assigned at BirthNot on fileLegal Sex Male05/19/2022 6:54 PM EDTGender IdentityNot on fileSexual OrientationNot on filedocumented as of this encounter Plan of Treatment Not on file documented as of this encounter Procedures Procedure NamePriorityDate/TimeAssociated DiagnosisCommentsURINE CULTURE - [facility] Blgeqqv1401/25/2025 9:00 AM EST [facility] UA (CLEAN/CATCH) COPPERSMITH HELPER/MICRO IF IND.Ynvehat4101/25/2025 9:00 AM EST documented in this encounter [...] RIA [facility] * (ABNORMAL) [facility] UA (CLEAN/CATCH) COPPERSMITH HELPER/MICRO IF IND. (01/25/2025 9:00 AM EST) ComponentValueRef [...]
--- OUTSIDE RECORDS SUMMARY | 2025-02-06 10:11 | XMS_ITS | Encounter Summary ---
Author Organization [facility] Address [address] [place] [address] Care Team Providers Care Director Sterile Processing Name Role Phone Unavailable Primary Care Provider Unavailabl e Encounter Details DateTypeDepartmentCare Team (Latest Contact Info)Qmzcejwhmzu55/20/2025bstract [facility] [address] [place] [phone] Unallocated, Noms Provider, [address] [address] Social History Tobacco UseTypesPacks/DayYears UsedDateSmoking Tobacco: Never AssessedSex and Gender InformationValueDate RecordedSex Assigned at BirthNot on fileLegal Sex Male05/19/2022 6:54 PM EDTGender IdentityNot on fileSexual OrientationNot on filedocumented as of this encounter Plan of Treatment Not on file documented as of this encounter Visit Diagnoses Not on filedocumented in this encounter
--- OUTSIDE RECORDS SUMMARY | 2025-02-06 10:11 | XMS_ITS | Clinical Summary ---
Author Organization [facility] Address [address] [facility], [address] [place] [address] Care Team Providers Care Helicopter Pilot Instructor Name Role Phone Feliciano Ambrosio DO Primary Care Provider [phone] Allergies Active AllergyReactionsCriticalityNoted BwqiHudnjvfsYegotbniZpt28/29/2018 Can't remember goofy DaacshmfuukyQta67/29/2018 Can't remember goofy and agitated ZvxhxpeobjkCdx18/29/2018 As child ZolpidemOther (See Comments)Low09/23/2020 Can't remember [...] Safety Domain Source: IP Abuse ScreeningAnswerDate RecordedPhysical zqnwpInguph90/17/2024Verbal abuseDenies 02/21/2024Emotional iqlueLkkpqo90/17/2024Financial pabvpFjkzeq49/17/2024Sexual zgbqmRlankc37/17/2024Sex and Gender InformationValueDate RecordedSex Assigned at BirthNot on fileLegal CsrCcgn5604/16/2012 8:10 PM ESTGender IdentityNot on file Sexual OrientationNot on file Last Filed Vital Signs Vital SignReadingTime TakenCommentsBlood Gdcspjrn061/7302/27/2024 10:46 AM EST Dvqiw228002/27/2024 10:46 AM AHHVgsuwxzpvyq87.7 ??C (98 ??F)02/27/2024 10:46 AM ESTRespiratory Dxrl325804/29/2023 10:46 AM ESTOxygen Szwdugqevv60%02/27/2024 10:46 AM ESTInhaled Oxygen Concentration--Wxvypu53.3 kg (190 lb 3.2 oz)02/21/2024 7:45 AM OWKLkyitp954.6 cm (5' 6 )02/21/2024 7:45 AM ESTBody Mass Index30.7104/23/2023 7:45 AM EST Plan of Treatment Health MaintenanceDue DateLast GselYrtmhhgsJwotmf53/11/1952Depression Screen 4DTaP/Tdap/Td vaccine (1 - Tdap)1Shingles vaccine [...] Mendes TypeRelation to PatientDate of BirthPhone Billing AddressPersonal/WzphkkFegl30/11/1941 [address] [place] [address] * Guarantor: Krista Mendes TypeRelation to PatientDate of BirthPhone Billing AddressPersonal/XalvddKsku13/11/1941 [address] [place] [address] Advance Directives * Full Code (Latest Code Status on File) Date ActivatedDate NldevrvoeuiRtpypadm09/17/2024 7:35 AM02/27/2024 3:35 PM Care Teams Team MemberRelationshipSpecialtyStart DateEnd Date Feliciano Ambrosio DO [facility]07/22/17
--- OUTSIDE RECORDS SUMMARY | 2025-02-06 10:11 | XMS_ITS | Encounter Summary ---
Author Organization [facility] Address [address] [place] [address] Care Team Providers Care Us Marketing Director Name Role Phone Unavailable Primary Care Provider Unavailabl e Encounter Details DateTypeDepartmentCare Team (Latest Contact Info)Amqlyljpivp99/24/2025bstract [facility] [address] [place] [phone] Unallocated, Noms Provider, [address] [place] [address] Social History Tobacco UseTypesPacks/DayYears UsedDateSmoking Tobacco: Never AssessedSex and Gender InformationValueDate RecordedSex Assigned at BirthNot on fileLegal Sex Male05/19/2022 6:54 PM EDTGender IdentityNot on fileSexual OrientationNot on filedocumented as of this encounter Plan of Treatment Not on file documented as of this encounter Visit Diagnoses Not on filedocumented in this encounter
== END 2025-02-06 10:09 | disposition home or self-care (01) ==
LOC: WC 10:08
PROVIDERS: PCP Family Medicine; Visit Provider Podiatrist Foot & Ankle Surgery
DX: L89.612 Pressure ulcer of right heel, stage 2 (principal)
CPT/HCPCS: G0463

== ENCOUNTER 2025-02-20 10:50 | Outpatient (OUT) | payer MEDICARE, BC, SELFPAY ==
--- OUTSIDE RECORDS SUMMARY | 2024-03-26 04:45 | XMS_ITS ---
Author Organization [facility] Address [address] [place] [address] [place] [address] Care Team Providers Care Photo Lab Manager Name Role Phone Pawel Echavarria Unavailable [phone] Mendy Bull Unavailable Unavailable Allergies Allergen (clinical [...] Location Date Provider Diagnosis [facility] [address] [place] [address] 03/26/2024 Pawel Echavarria Plan Of Treatment Next Appt Details Provider Name:Pawel hernandez, 02/20/2025 03:00:00 PM, [address] [place], [address] Progress Notes * Irineo WALLIS JrDOB:01/1941 (84 yo M)Acc No.[id number]:03/26/2024 Patient:?Irineo Wallis Jr :?Pawel Echavarria DPMDOB:1940???Age:83 Y???Sex: MaleDate:03/26/2024Phone:Address:[facility] Subjective: * Chief Complaints: * R fc [...] Electronic signature of Pawel Echavarria DPM on 02/20/2025 at 10:55 AM ESTSign off status: Pending * Provider: Danae Echavarria DPM Date: 0 03/26/2024 Generated for Printing/Faxing/eTransmitting on:?02/20/2025 10:55 AM EST
--- OUTSIDE RECORDS SUMMARY | 2024-04-13 04:20 | XMS_ITS ---
Author Organization [facility] Address [address] [place] [address] Care Team Providers Care Electronics Technician Name Role Phone Randi Burris Unavailable [phone] SIXTO SIMMONS CNP Unavailable Unavailable REASON FOR VISIT L2-5 DECOMPRESSION AND NON INSTRUMENTED FUSION, [facility] , 02/20 Encounters Encounter Location Date Provider Diagnosis [facility] [facility] [address] [place] [address] [place] [address] 04/13/2024 Randi Burris Plan Of Treatment No Information Progress Notes * TAVO WALLIS JR RDOB:01/1941 (84 yo M)Acc No.[id number]:04/13/2024 Progress Notes Patient: Sharifa BRAVO TAVO [place] :?Randi Man MD, PhDDOB:1940 ???Age:83 Y???Sex:MaleDate:04/13/2024Phone:[phone]:[address] [place], [id number] Subjective: * Chief Complaints: * 1 . L2-5 DECOMPRESSION AND NON INSTRUMENTED FUSION, [facility] , 02/20. * Medical History: * Surgical History: R otator cuff surgery , L2-5 laminectomy, PSF 02/21/2024. Objective: * Vitals: Assessment: Plan: * Treatment: Forms: * Images: * Electronic signature of Randi Burris MD, PHD on 02/20/2025 at 10:53 AM EST Sign off status: Pending * Provider: Myranda Man MD, PhD Date: 0 04/13/2024 Generated for Printing/Faxing/eTransmitting on:?02/20/2025 10:53 AM EST
--- OUTSIDE RECORDS SUMMARY | 2024-05-25 05:30 | XMS_ITS ---
Author Organization [facility] Address [address] [place] [address] Care Team Providers Care Escapement Maker Name Role Phone Randi Burris Unavailable [phone] SIXTO SIMMONS CNP Unavailable Unavailable REASON FOR VISIT S.P I & D, 04/13/24 Encounters Encounter Location Date Provider Diagnosis [facility] [facility] [address] [place] [address] [place] [address] 05/25/2024 Randi Burris Plan Of Treatment No Information Progress Notes * TAVO WALLIS JR RDOB:01/1941 (84 yo M)Acc No.[id number]:05/25/2024 Progress Notes Patient: Sharifa BRAVO TAVO MCFARLAND :?Randi Man MD, PhDDOB:1940 ???Age:83 Y???Sex:MaleDate:05/25/2024Phone:[phone]:[address] [id number] Subjective: * Chief Complaints: * 1 . S.P I & D, 04/13/24. * Medical History: * Surgical History: R otator cuff surgery , L2-5 laminectomy, PSF 02/21/2024, Lumbar wound I & D 04/17/2024. Objective: * Vitals: Assessment: Plan: * Treatment: Forms: * Images: * Electronic signature of Randi Burris MD, PHD on 02/20/2025 at 10:54 AM EST Sign off status: Pending * Provider: Myranda Man MD, PhD Date: 0 05/25/2024 Generated for Printing/Faxing/eTransmitting on:?02/20/2025 10:54 AM EST
--- OUTSIDE RECORDS SUMMARY | 2024-06-08 05:10 | XMS_ITS ---
Author Organization [facility] Address [address] [place] [address] Care Team Providers Care Ball Mill Operator Name Role Phone Randi Burris Unavailable [phone] SIXTO SIMMONS CNP Unavailable Unavailable REASON FOR VISIT lumbar recheck Medications Medication SIG (Take, Route, Frequency, Duration) Notes Start Date End Date Status magnesium oxide ActivepramipexoleActivetraZODoneActivepotassium chlorideActiveOxycodoneActive Flexeril 10 mg1 tab(s) orally 3 times a day prn muscle nvdfpu25/16/2024Active Flexeril 10 mg1 tab(s) orally 3 times a day5ActiveatorvastatinActive EliquisActiveallopurinolActivelevothyroxineActiveeszopicloneActivebumetanide Active Encounters Encounter Location Date Provider Diagnosis [facility] Office [address] [place] [address] [place] [address] 06/08/2024 Randi Burris Plan Of Treatment Pending Test Test Name Order Date Lumbar spine 2v ap and lat - 66649 06/08 Progress Notes * TAVO WALLIS JR RDOB:01/1941 (84 yo M)Acc No.[id number]:06/08/2024 Patient:?TAVO WALLIS JR :?Randi Man MD, PhDDOB:1940 ???Age:83 Y???Sex:MaleDate:06/08/2024Phone:[phone]:[address] [id number] Subjective: * Chief Complaints: * 1 . [...] Lumbar spine 2v ap and lat - 65683 Forms: * Images: * Electronic signature of Randi Burris MD, PHD on 02/20/2025 at 10:55 AM EST Sign off status: Pending * Provider: Myranda Man MD, PhD Date: 0 06/08/2024 Generated for Printing/Faxing/eTransmitting on:?02/20/2025 10:55 AM EST
--- OUTSIDE RECORDS SUMMARY | 2024-07-20 05:00 | XMS_ITS ---
Author Organization [facility] Address [address] [place] [address] Care Team Providers Care Pathology Secretary/Transcriptionist Name Role Phone Randi Burris Unavailable [phone] SIXTO SIMMONS CNP Unavailable Unavailable REASON FOR VISIT LUMBAR RECHECK Medications Medication SIG (Take, Route, Frequency, Duration) Notes Start Date End Date Status Flexeril 10 mg 1 tab(s) orally 3 times a day pr n muscle spasms 4ActiveFlexeril 10 mg1 tab(s) orally 3 times a day5Active atorvastatinActiveallopurinolActiveEliquisActivemagnesium oxideActiveOxycodone ActiveeszopicloneActivelevothyroxineActivebumetanideActivetraZODoneActive pramipexoleActivepotassium chlorideActive Encounters Encounter Location Date Provider Diagnosis [facility] Office [address] [place] [address] [place] [address] 07/20/2024 Randi Burris Plan Of Treatment No Information Progress Notes * TAVO WALLIS JR RDOB:01/1941 (84 yo M)Acc No.[id number]:07/20/2024 Patient:?TAVO WALLIS JR :?Randi Man MD, PhDDOB:1940 ???Age:84 Y???Sex:MaleDate:07/20/2024Phone:[phone]:[address], [id number] Subjective: * Chief Complaints: * 1 . [...] PhD Date: 0 07/20/2024 Generated for Printing/Faxing/eTransmitting on:?02/20/2025 10:55 AM EST
--- OUTSIDE RECORDS SUMMARY | 2024-08-10 05:20 | XMS_ITS ---
Author Organization [facility] Address [address] [place] [address] Care Team Providers Care Veneer Layer Name Role Phone Randi Burris Unavailable [phone] SIXTO SIMMONS CNP Unavailable Unavailable REASON FOR VISIT LUMBAR RECHECK Encounters Encounter Location Date Provider Diagnosis [facility] Office [address] [place] [address] [place] [address] 08/10/2024 Randi Burris Plan Of Treatment No Information Progress Notes * TAVO WALLIS JR RDOB:01/1941 (84 yo M)Acc No.[id number]:08/10/2024 Patient:?TAVO WALLIS JR :?Randi Man MD, PhDDOB:1940 ???Age:84 Y???Sex:MaleDate:08/10/2024Phone:[phone]:[address] [phone] Subjective: * Chief Complaints: * 1 . LUMBAR RECHECK. * Medical History: Objective: * Vitals: Assessment: Plan: * Treatment: Forms: * Images: * Electronic signature of Randi Burris MD, PHD on 02/20/2025 at 10:53 AM EST Sign off status: Pending * Provider: Myranda Man MD, PhD Date: 0 08/10/2024 Generated for Printing/Faxing/eTransmitting on:?02/20/2025 10:53 AM EST
--- OUTSIDE RECORDS SUMMARY | 2024-08-31 05:40 | XMS_ITS ---
Author Organization [facility] Address [address] [place] [address] Care Team Providers Care Director Of Content And Programming Name Role Phone Randi Burris Unavailable [phone] SIXTO SIMMONS CNP Unavailable Unavailable REASON FOR VISIT LUMBAR RECHECK Medications Medication SIG (Take, Route, Frequency, Duration) Notes Start Date End Date Status atorvastatin ActiveallopurinolActiveEliquisActiveFlexeril 10 mg1 tab(s) orally 3 times a day 5ActiveFlexeril 10 mg1 tab(s) orally 3 times a day prn muscle spasms 4ActiveOxycodoneActivelevothyroxineActivemagnesium oxideActive bumetanideActiveeszopicloneActivepotassium chlorideActivetraZODoneActive pramipexoleActive Encounters Encounter Location Date Provider Diagnosis [facility] [address] [place] [address] 08/31/2024 Randi Burris Plan Of Treatment Pending Test Test Name Order Date Lumbar spine 2v ap and lat - 27926 08/31 Progress Notes * TAVO WALLIS JR RDOB:01/1941 (84 yo M)Acc No.[id number]:08/31/2024 Patient:?TAVO WALLIS JR :?Randi Man MD, PhDDOB:1940 ???Age:84 Y???Sex:MaleDate:08/31/2024Phone:[phone]:[address] [phone] Subjective: * Chief Complaints: * 1 . [...] Lumbar spine 2v ap and lat - 24014 * Procedure Codes: 7 2100 X-ray Lumbar Spine, 2 view Forms: * Images: * Electronic signature of Randi Burris MD, PHD on 02/20/2025 at 10:54 AM EST Sign off status: Pending * Provider: Myranda Man MD, PhD Date: 0 08/31/2024 Generated for Printing/Faxing/eTransmitting on:?02/20/2025 10:54 AM EST
--- OUTSIDE RECORDS SUMMARY | 2025-02-20 10:53 | XMS_ITS | Clinical Summary ---
Author Organization [facility] Address [address] [place] [address] Care Team Providers Care Lumber Yard Worker Name Role Phone Unavailable Primary Care Provider Unavailabl e Allergies Active AllergyReactionsCriticalityNoted DateCommentsPenicillinsMental Status Zhyqtg3204/07/2004 Medications MedicationSigDispense QuantityRefillsLast FilledStart DateEnd DateStatus SYNTHROID 150 MCG TABLET Take one(1) tablet daily.Active ALLOPURINOL 300 MG TABLET Take one(1) tablet daily.Active HYTRIN 2 MG CAPSULE Take one(1) capsule daily.Active BUMEX 2 MG TABLET Take one(1) tablet daily.Active CELEBREX 200 MG CAPSULE Take one(1) capsule daily.Active LEXAPRO 5 MG TABLET take one half dgwpa390Active VICODIN 5/500 TABLET as hdxdlq127Active K-DUR 20 MEQ TABLET SA Take one(1) tablet daily.Active Active Problems No known active problems Family History Medical HistoryRelationCommentsAlzheimer's DiseaseMotherCoronary Artery Disease MotherHad CABG when she was olderThyroidSisterHypothyroidismobesitySister RelationStatusCommentsMotherSister Social History Tobacco UseTypesPacks/DayYears UsedDateSmoking Tobacco: BrexezQaflysgxll992 04/07/1964 - 04/07/1994 Comments:Started in High janey ool Alcohol UseStandard Drinks/WeekCommentsYes0 (1 standard drink = 0.6 oz pure alcohol)A few beers every daySex and Gender InformationValueDate RecordedSex Assigned at BirthNot on fileLegal ZhaPxft39/02/2012 10:06 AM ESTGender Identity Not on fileSexual OrientationNot on fileOccupationIndustryJob Start DateJob End DateNot on fileNot on fileNot on fileNot on file Last Filed Vital Signs Vital SignReadingTime TakenCommentsBlood Xicjqycz480/85006/28/2024 10:50 AM EDT Pjyyj1471 10:50 AM NGQFhkkmlojhgj23.9 ??C (98.5 ??F)06/28/2024 10:50 AM EDTRespiratory Asgk762006/28/2024 10:50 AM EDTOxygen Vlbvwrdvza25%06/28/2024 10:50 AM EDTInhaled Oxygen Concentration--Tfqwzl109.2 kg (276 lb)04/07/2004 3:44 PM ESTHeight--Body Mass Index-- Plan of Treatment Health MaintenanceDue DateLast DoneCommentsAnxiety Dcnczfynk58/11/1960Depression Gjomurltq99/11/1960DTaP,Tdap,Td Vaccine (1 - Tdap)1Diabetes Screening 1986Pneumococcal Vaccine: 50+ (1 of 1 - PCV)07/16/1991Shingrix Vaccine (1 of 2)07/16/1991RSV Vaccine (1 - 1-dose 75+ series)2016Advance Directive Fgyyzsxiuk32/01/2025ovid-19 Vaccine (1 - 2024- season)2024Influenza Vaccine (#1)2024 Insurance
--- OUTSIDE RECORDS SUMMARY | 2025-02-20 10:54 | XMS_ITS | Clinical Summary ---
Author Organization [facility] Address [id number] [address] [place] [address] Care Team Providers Care Workers Compensation Paralegal Name Role Phone TjcatieEdmondan Louis HARGROVE Primary Care Provider [phone] Allergies Active AllergyReactionsCriticalityNoted FmnwSothryjtVcqrybyz68/20/2021Fentanyl 09/02/20172049Auwnkeqxcsap75/29/4024Koqkrtcuuuy25/01/2005 Other reaction(s): Mental Status Change Medications MedicationSigDispense [...] MOUTH ONCE EVERY MORNING ON AN EMPTY UDCVBJE508Active magnesium oxide (MAG-OX) 400 mg tablet Take [...] DateBenign prostatic hyperplasia (BPH) with urinary urge xxsoipfxtmmh33/07/2019 Overview (05/18/2022): urolift 12/21 (Ameena) Was using [...] standard drink = 0.6 oz pure alcohol)ChildcareAnswerDate AinrololNhffxbzlmLbalydt75/04/2019EmploymentAnswer Date CipynoujLxawbbdbqoLgufnbf43/04/2019Hunger ScreeningAnswerDate Recorded Within the past 12 months we worried whether our food would run out before we got money to buy more.Never True05/18/2022Within the past 12 months the food we bought just didn't last and we didn't have money to get more.Never True 05/18/2022urpose - LifeAnswerDate RecordedPurpose and direction in lifeUnknown 03/31/2020ex and Gender InformationValueDate RecordedSex Assigned at BirthNot on fileLegal JuvAdtd7210/08/2014 8:36 PM EDTGender IdentityNot on fileSexual OrientationNot on file Last Filed Vital Signs Vital SignReadingTime TakenCommentsBlood Fxlpbnhl632/7905/18/2022 11:26 AM EDT Evklw973705/18/2022 11:26 AM EDTTemperature--Respiratory Tyhb261705/18/2022 11:26 AM EDTOxygen Saturation--Inhaled Oxygen Concentration--Cyxqqe32.6 kg (180 lb) 05/18/2022 11:26 AM MNQUbqdro887.6 cm (5' 6 )05/18/2022 11:26 AM EDTBody Mass Index29.05005/18/2022 11:26 AM EDT Plan of Treatment Health MaintenanceDue DateLast DoneCommentsDepression Gsflxwovv20/11/1954Tobacco Lhkmcupau13/11/1954DTaP,Tdap and Td Vaccines (1 - Tdap)1960Zoster (Shingles) Vaccine (1 of 2)07/16/1991Fall Risk Ishftuubd61/11/2007RSV ( or age 60+ yrs) (1 - 1-dose 75+ series)2016COVID-19 Vaccine (2024- season)/, 02/18/2021, 05/28/2020, Additional history exists Influenza Mbcfzyu11/, 12/22/2019, 12/06/2019, Additional history exists Medical Devices Not on file Insurance Care Teams Team MemberRelationshipSpecialtyStart DateEnd Date Feliciano Ambrosio DO PCP - GeneralFamily Medicine06/05/18
--- OUTSIDE RECORDS SUMMARY | 2025-02-20 10:54 | XMS_ITS | Clinical Summary ---
Author Organization [facility] Address [address] [place] [address] Phone Care Team Providers Care School Psychologist Assistant Name Role Phone Feliciano Ambrosio Louis HARGROVE Primary Care Provider [phone] Allergies Active AllergyReactionsCriticalityNoted DateCommentsFentanylDizziness,Nausea Only02/16/20234747EtzvrwmsidwlIgyxi01/13/2118YfywfbsznicDiutx04/13/2023Zolpidem Mmibpbt1102/16/2023 Medications MedicationSigDispense QuantityRefillsLast FilledStart DateEnd DateStatus acetaminophen [...] daily (morning and late afternoon). 180 tablet ctive Eliquis 5 mg tablet Indications:Heart failure, unspecified (Multi),Chronic atrial fibrillation (Multi)TAKE 1 TABLET BY MOUTH TWICE A DAY 180 tablet 5Active magnesium oxide (Mag-Ox) 400 mg (241.3 mg elemental) tablet Indications:Chronic atrial fibrillation (Multi),Essential hypertension, benign, Non-ischemic cardiomyopathy (Multi)Take 1 tablet by mouth once daily. 90 tablet 309509ctive Active Problems ProblemNoted DateDiagnosed DateLong term current use of anticoagulant therapy 02/16/2024MI 30.0-30.9,adult02/16/2024Former uoxvph1602/16/2024hronic atrial zaiotntmsbwp59/13/2023Echocardiogram bppgvapl16/13/2474Zeiao97/13/2023rimary maxbgobpqeqb18/13/2023Heart failure, NYHA class 212Hyperlipemia 02/16/2023Mild CAD02/16/2023 Resolved Problems ProblemNoted DateDiagnosed DateResolved DateNon-ischemic cardiomyopathy Encounters DateTypeDepartmentCare AnwaGmpmuigojjk88/24/2025Scanned Document [facility] [address] [place] [address] Scanning, Generic Provider 01/27/2025Scanned Document [facility] [address] [place] [address] Scanning, Generic Provider 01/26/2025Scanned Document [facility] [address] [place] [address] Scanning, Generic Provider 12/13/2024Scanned Document [facility] [address] [place] [address] Scanning, Generic Provider 12/12/2024Scanned Document [facility] [address] [place] [address] Scanning, Generic Provider 11/23/2024Refill at [facility] [address] [address] Irineo Mcintyre, Chronic atrial fibrillation (Multi); Essential hypertension, benign; Non-ischemic cardiomyopathy (Multi)from Last 3 Months Immunizations ImmunizationAdministration DatesNext DueInfluenza, Qgfbqoboolx08/01/2019, 11/05/2017,04/07/2016Pneumococcal conjugate vaccine, 13-valent (PREVNAR 13) 04/07/2016 Family History Medical HistoryRelationNameCommentsNo Known ProblemsMotherRelationNameStatus CommentsMother Social History Tobacco UseTypesPacks/DayYears UsedDateSmoking Tobacco: FormerCigarettesQuit: 1980Smokeless Tobacco: Never Tobacco Cessation:Counseling Given: Yes Alcohol UseStandard Drinks/WeekCommentsYes3 (1 standard drink = 0.6 oz pure alcohol)Sex and Gender InformationValueDate RecordedSex Assigned at BirthNot on fileLegal BeaHzpb68/26/2022 2:53 PM ESTGender IdentityNot on fileSexual OrientationNot on file Last Filed Vital Signs Vital SignReadingTime TakenCommentsBlood Iaqnckth373/8602/16/2024 3:20 PM EST Hwgdg97228/12/2024 3:20 PM ESTTemperature--Respiratory Rate--Oxygen Saturation-- Inhaled Oxygen Concentration--Alocwz43.6 kg (191 lb)02/16/2024 3:20 PM ESTHeight 167.6 cm (5' 6 )02/16/2024 3:20 PM ESTBody Mass Index30.8302/16/2024 3:20 PM EST Plan of Treatment Health MaintenanceDue DateLast DoneCommentsCreatinine Level1941Lipid Panel 1941Medicare Annual Wellness Visit (AWV)2Potassium Level 1941TSH Level2Diabetes Cwlprnfct13/11/1960DTaP/Tdap/Td Vaccines (1 - Tdap)07/16/1963Zoster Vaccines (1 of 2)07/16/1991Pneumococcal Vaccine (2 of 2 - PPSV23, PCV20, or PCV21)RSV High Risk: (Elderly (60+) or Population) (1 - 1-dose 75+ series)2016Influenza Vaccine (#1) /, 12/24/2021, 12/22/2019, Additional history existsCOVID-19 Vaccine ( season)/, 02/18/2021, 05/28/2020, Additional history hysdtpNistmhxbtsypzr26/09/202610/09/2025, 02/23/2024, 01/10/2022, Additional history existsHIB VaccinesAged OutNo [...] Procedures Procedure NamePriorityDate/TimeAssociated DiagnosisCommentsECHOCARDIOGRAM 12/13/2024 OUTSIDE IMAGING SCAN12/12/2024 from Last 3 Months Results * Echocardiogram (12/13/2024) Narrative 12/13/2024 Ordered by an unspecified provider. Authorizing ProviderResult TypeResult StatusGeneric Provider ScanningCV ECHO PROCEDURESFinal Result * OUTSIDE IMAGING SCAN (12/12/2024)Anatomical RegionLateralityModalityOther Narrative 12/12/2024 Ordered by an unspecified provider. Authorizing ProviderResult TypeResult StatusGeneric Provider ScanningOUTSIDE SCANFinal Result from Last 3 Months Insurance * Guarantor: Krista Mendes TypeRelation to PatientDate of BirthPhone Billing Address[place] [address] [phone] [facility] [place] [address] * Guarantor: Krista Mendes TypeRelation to PatientDate of BirthPhone Billing Address[place] [address] ([place]) [address] [facility] [place] [address] Care Teams Team MemberRelationshipSpecialtyStart DateEnd Date Feliciano Ambrosio DO PCP - Nqhcxid84/1/21
--- OUTSIDE RECORDS SUMMARY | 2025-02-20 10:54 | XMS_ITS | Patient Health Record ---
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, bilateral legs (I70.203) ActiveconfirmedProblemAcquired hammer toe of right foot (5811770996493796)Other hammer toe(s) (acquired), right foot (M20.41)ActiveconfirmedProblemAcquired hammer toe of left foot (1343530486215759)Other hammer toe(s) (acquired), left foot (M20.42)Activeconfirmed Plan Of Treatment Next Appt Details Provider Name:Pawel hernandez, 02/20/2025 03:00:00 PM, [address] [place], [address] Insurance Providers Payer Name Payer Address Payer Phone Subscriber Number Group Number Insured Name Patient Relationship to Insured Coverage Start Date Coverage End Date Medicare Part B [id number] Part [facility] Claims [address] [place] [address] [id number], WilliamSelf - patient is the [facility]PO [address] [place], [place] [id number], WilliamSelf - patient is the insured Medical (General) History Medical History History ICD Code hypertension hyperlidemiaatrial fibrillationoveractive bladderlumbar spondylosisheart murmur stomach ulcerspoor circulationthyroid diseaseskin conditionsSurgical History Surgery Date(Month/Year)
--- OUTSIDE RECORDS SUMMARY | 2025-02-20 10:54 | XMS_ITS | Clinical Summary ---
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 Name Role Phone Unavailable Primary Care Provider Unavailabl e Encounters DateTypeDepartmentCare XwkuFcrhdpmoney02/24/2025bstract [facility] [address] [place] [address] Unallocated, Da Tripp MD 01/25/2025External Result Encounter [facility] External Department Unsolicited Mendy Bull MD 01/25/2025linisync Result Encounter [facility] External Department Unsolicited Mendy Bull MD 01/24/2025bstract [facility] [address] [facility] [address] [place] [address] Unallocated, Noms MD Josee from Last 3 Months Social History Tobacco UseTypesPacks/DayYears UsedDateSmoking Tobacco: Never AssessedSex and Gender InformationValueDate RecordedSex Assigned at BirthNot on fileLegal Sex Male05/19/2022 6:54 PM EDTGender IdentityNot on fileSexual OrientationNot on file Plan of Treatment Not on file Procedures Procedure NamePriorityDate/TimeAssociated DiagnosisCommentsAEROBIC BELLA CHARGE (NMIC56)STAT103/27/2024 9:00 AM EST URINE CULTURE - RLYEXyzpiyy00/21/2025 9:00 AM EST [facility] UA (CLEAN/CATCH) ELECTRONICS TECH/MICRO IF IND.Epbcxmx3301/25/2025 9:00 AM EST CULTURE, URINE, YCODVQCZSGB50/21/2025 9:00 AM EST from Last 3 Months Results * (ABNORMAL) [place] [facility]01/25/2025 9:00 AM EST)ComponentValueRef RangeTest MethodAnalysis TimePerformed AtPathologist SignatureURINE CULTURE - [facility] ??Urine Culture - [facility] SEEFR FR RESULT^[facility] RESULT (A)[facility], ABNORMAL^SEE SCANNED REPORT, ABNORMAL(A)TBHSpecimen (Source)Anatomical Location / LateralityCollection Method / VolumeCollection TimeReceived Time01/25/2025 9:00 AM EST01/25/2025 1:40 PM EST Narrative [facility] - 01/27/2025 5:39 PM EST Authorizing ProviderResult TypeResult StatusMendy SUTHERLAND BLOOD ORDERABLES Final ResultPerforming OrganizationAddressCity/State/ZIP CodePhone Number [facility] * (ABNORMAL) AEROBIC BELLA CHARGE (NMIC56) (01/25/2025 9:00 AM EST)ComponentValue Ref RangeTest MethodAnalysis TimePerformed AtPathologist SignatureAMIKACIN<16 (S)01/27/2025 9:27 AM [facility] CtrAZTREONAM<4(I) 01/27/2025 9:27 AM [facility] CtrCEFEPIME<2(S)01/27/2025 9:27 AM [facility] CtrCEFTAZIDIME<1(I)01/27/2025 9:27 AM [facility] CtrCEFTAZIDIME/AVIBACTAM<4(S)01/27/2025 9:27 AM [facility] CtrCEFTOLOZANE/TAZOBACTAM<2(S)01/27/2025 9:27 AM [facility] CtrCIPROFLOXACIN<0.25(S)01/27/2025 9:27 AM [facility] CtrGENTAMICIN<2(S)01/27/2025 9:27 AM [facility] CtrLEVOFLOXACIN<0.5(S)01/27/2025 9:27 AM [facility] CtrMEROPENEM<1(S)01/27/2025 9:27 AM [facility] CtrPIPERACILLIN/TAZOBACTAM<8(I)01/27/2025 9:27 AM [facility] CtrTOBRAMYCIN<2(S)01/27/2025 9:27 AM [facility] CtrSpecimen (Source)Anatomical Location / LateralityCollection Method / VolumeCollection TimeReceived TimeClean-Voided Midstream (Clean Void Midstream)01/25/2025 9:00 AM EST01/25/2025 4:28 PM EST Narrative Authorizing ProviderResult TypeResult StatusMendy Bull MDFIRELANDSFinal Result Performing OrganizationAddressCity/State/[facility] CodePhone Number [facility] [address] [phone], [facility] Ctr [address] [place] [address] * (ABNORMAL) [facility] UA (CLEAN/CATCH) ELECTRONICS TECH/MICRO IF IND. (01/25/2025 9:00 AM EST) ComponentValueRef [...] RangeTest Method Analysis TimePerformed AtPathologist SignatureFRMC ORGANISMPseudomonas iyrplkumaf67/23/2025 9:27 AM [facility] CtrCOLONY COUNT >100,4208903/29/2024 9:27 AM [facility] CtrSpecimen (Source) Anatomical Location / LateralityCollection Method / VolumeCollection Time Received TimeClean-Voided Midstream (Clean Void Midstream)01/25/2025 9:00 AM EST01/25/2025 4:28 PM EST [facility] - 01/27/2025 9:30 AM EST Diagnosis: ALTERED MENTAL STATUS Comment: Authorizing ProviderResult TypeResult StatusMendy SUTHERLAND MICROBIOLOGY - GENERAL ORDERABLESFinal ResultPerforming OrganizationAddressCity/State/ZIP Code Phone Number [facility] [address] [place] [address], [facility] [address] [place] [address] from Last 3 Months Insurance
--- OUTSIDE RECORDS SUMMARY | 2025-02-20 10:54 | XMS_ITS | Clinical Summary ---
Author Organization [facility] Address [address], [address] [place] [address] Care Team Providers Care Conveyor Console Operator Name Role Phone Feliciano Ambrosio DO Primary Care Provider [phone] Allergies Active AllergyReactionsCriticalityNoted JhqyGgbzkvdgDuevgiixBpv37/29/2018 Can't remember goofy IaymahlqbsynAkd88/29/2018 Can't remember goofy and agitated OuypnoodebjFhm94/29/2018 As child ZolpidemOther (See Comments)Low09/23/2020 Can't remember [...] Safety Domain Source: IP Abuse ScreeningAnswerDate RecordedPhysical kxqngFwglce42/17/2024Verbal abuseDenies 02/21/2024Emotional zrlreQfcdcj78/17/2024Financial upfhnKaqfsk79/17/2024Sexual abeelXrmegw73/17/2024Sex and Gender InformationValueDate RecordedSex Assigned at BirthNot on fileLegal FiiRctc0404/16/2012 8:10 PM ESTGender IdentityNot on file Sexual OrientationNot on file Last Filed Vital Signs Vital SignReadingTime TakenCommentsBlood Nabuknqu373/7302/27/2024 10:46 AM EST Ojqeq290902/27/2024 10:46 AM LBIUordxdzzuga39.7 ??C (98 ??F)02/27/2024 10:46 AM ESTRespiratory Xtjw715604/29/2023 10:46 AM ESTOxygen Cpkodbzlvz83%02/27/2024 10:46 AM ESTInhaled Oxygen Concentration--Cmitoe81.3 kg (190 lb 3.2 oz)02/21/2024 7:45 AM UDJHvrdue850.6 cm (5' 6 )02/21/2024 7:45 AM ESTBody Mass Index30.7104/23/2023 7:45 AM EST Plan of Treatment Health MaintenanceDue DateLast VvjgOxuajldwNgsklh96/11/1951Depression Screen 4DTaP/Tdap/Td vaccine (1 - Tdap)1Shingles vaccine [...] Mendes TypeRelation to PatientDate of BirthPhone Billing AddressPersonal/FosfpxEhsf16/11/1941 [address] [place] [address] * Guarantor: Krista Mendes TypeRelation to PatientDate of BirthPhone Billing AddressPersonal/ZxchatZqvo23/11/1941 [address] [place] [address] Advance Directives * Full Code (Latest Code Status on File) Date ActivatedDate DeuxdpsysusHomouzkw71/17/2024 7:35 AM02/27/2024 3:35 PM Care Teams Team MemberRelationshipSpecialtyStart DateEnd Date Feliciano Ambrosio DO [facility] - [facility] Medicine07/22/17
--- OUTSIDE RECORDS SUMMARY | 2025-02-20 10:55 | XMS_ITS | Patient Health Record ---
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 Name Role Phone Randi Burris Unavailable [phone] SIXTO SIMMONS CNP Unavailable Unavailable Gustabo May Unavailable [phone] Maxine Torres Unavailable [phone] Allergies Allergen (clinical drug ingredient) Drug/Non Drug Allergy documented on EMR Reaction Allergy Type Onset Date Status penicillin (uncoded)UnknownAllergyActiveindomethacinindomethacinUnknownDrug AllergyActivefentanylfentaNYLUnknownDrug AllergyActivezolpidemAmbienUnknownDrug AllergyActive Results Component Value Reference Range Notes XR CHEST PORTABLE Reviewed date:03/06/2024 07:29:49 AM Interpretation: Performing Lab: Notes/Report: 1 view chest x-ray [place] [address] [place] [address], Original Ordering Provider: Joanne JUNIOR Provider Role: Copied CT HEAD WO CONTRAST Reviewed date:03/06/2024 07:29:49 AM Interpretation: Performing Lab: Notes/Report: CT head without contrast [place] [address] [place] [address], Original Ordering Provider: Joanne JUNIOR Provider Role: Copied XR LUMBAR SPINE 1 VW Reviewed date:02/22/2024 03:19:14 PM Interpretation: Performing Lab: Notes/Report: MOBILE LATERAL LUMBAR SPINE: [place] [address] [place] [address], Original Ordering Provider: Joanne CARLOS Provider Role: Ordering Diff Auto Reviewed date:04/25/2024 11:56:11 AM Interpretation: Performing Lab: Notes/Report: [address] [address] Neutro Auto 63.4 47.2-70.8 % Lymph Auto25.527.2-40.8 %Mcdonough Auto6.54.7-13.9 %Eos Auto3.90.0-6.1 %Basophil Auto 0.70.0-1.2 %Neutro Absolute5.51.8-7.7 x10*3/mcLLymph Absolute2.21.0-4.8 x10*3/mcLMono Absolute0.60.3-1.1 x10*3/mcLEos Absolute0.30.0-0.4 x10*3/mcLBaso Absolute0.10.0-0.2 x10*3/mcLCMP Reviewed date:04/25/2024 11:56:11 AM Interpretation: Performing Lab: Notes/Report: [address] [address]Kzjrlp Miv755296-347 mmol/LPotassium Lvl3.23.4-4.8 mmol/L Hdeqctcu2757-549 mmol/RST47432-77 mmol/LAnion Vak50-30Mzbcicg Koc6493-90 mg/dL XRE192-45 mg/dLCreatinine Lvl1.300.61-1.24 mg/dLBUN Crea Ratio19.210.0-20.0Bili Total0.80.3-1.2 mg/dLAlk Kuze22092-31 IU/IGCI0501-99 IU/UIJJ5571-97 IU/LTotal Protein6.66.5-8.1 g/dLAlbumin Lvl3.03.2-4.9 g/dLAG Ratio0.81.1-2.2Calcium Lvl8.5 8.5-10.3 mg/dLPhosphorus Reviewed date:04/25/2024 11:56:11 AM Interpretation: Performing Lab: Notes/Report: [address] [address]Igucenzffa7.12.5-4.6 mg/dLBNP Reviewed date:04/25/2024 11:56:06 AM Interpretation: Performing Lab: Notes/Report: [address] [address]OOR0885-658 pg/mLCBC w/ Diff Reviewed date:04/25/2024 11:56:11 AM Interpretation: Performing Lab: Notes/Report: [address] [address]QJJ5.74.5-11.0 x10*3/mcLRBC2.784.30-5.80 x10*6/mcLHgb8.913.5- 17.5 g/dLHct26.741.0-53.0 %MCV96.180.0-100.0 fLMCH32.227.0-35.0 htMGBO77.531.0- 37.0 %Sxkcfdzw256826-324 x10*3/wqYYKB41.711.6-14.8 %Mean Platelet Volume6.76.7- 10.6 fL.eGFR Reviewed date:04/25/2024 11:56:06 AM Interpretation: Performing Lab: Notes/Report: [address] [address]Ldbgsogla GFR55>=60 mL/min/1.73m? [facility] Laboratories have implemented the eGFR calculation approach [...] Insurance Company:MEDICARESurgeon/Assist:ST SAGE/ AMIE OR GUSTABO [facility] @ 10:30AMHosp arrival time day of:9:30AMSurgery End Time:12:00PMProcedure:LUMBAR I &DSpecial Equipment: PRONE,ANABELLA TABLEAdmission Type:INPATIENTAnesthesia Type/CPNB:GENERALPost-op Appointment Date:05/25/24 @ 10:30AM BELLEVUEScheduler:Leno Physician: CLEAREDHistory & Physical Appointment Date/:04/13/24C Bld Reviewed date:04/20/2024 08:42:56 AM Interpretation: Performing Lab: Notes/Report: [address] [address]Oigq Patient Name: Tavo Wallis : 1940 [facility] C BldSee Below For Report Final No growth at 5 days. Troponin-I Reviewed date:04/25/2024 11:56:06 AM Interpretation: Performing Lab: Notes/Report: [address] [address]Mzsonszv-M<0.030.00-0.03 ng/mL An increased Troponin-I value, in the absence of myocardial ischemia, may indicate other etiologiesof cardiac damage. 99th Percentile Cutoff for Negative/Positive: Negative <= 0.03 Positive >= 0.04 Magnesium Reviewed date:04/25/2024 11:56:11 AM Interpretation: Performing Lab: Notes/Report: [address] [address]Lyjkfwhei Lvl1.91.7-2.4 mg/dL.AMI 2 Hr Reviewed date:04/25/2024 11:56:06 AM Interpretation: Performing Lab: Notes/Report: [address] 763703 Hour Troponin<0.030.00-0.03 ng/mL An increased Troponin-I value, in the absence of myocardial ischemia, may indicate other etiologiesof cardiac damage. 99th Percentile Cutoff for Negative/Positive: Negative <= 0.03 Positive >= 0.04 2 Hour Xhijbioji09.817.4-105.7 ng/mLMRSA, PCR Reviewed date:04/16/2024 01:17:51 PM Interpretation: Performing Lab: Notes/Report: [address] [address]Rmsehsxdtst Resistant Staph aurus(MRSA)Not DetectedNot Detected Mutations or polymorphisms in primer or probe binding regions may affect detection of new or unknown MRSA variants resulting in a false negative. The [employer] Xpert MRSA Assay is a qualitative in [...] available to the clinician. LAB ONLY Result Called?NoC Bld Reviewed date:04/20/2024 08:42:56 AM Interpretation: Performing Lab: Notes/Report: [address] [address]Gtpx Patient Name: Tavo Wallis : 1940 [facility] C BldSee Below For Report Final No growth at 5 days. Diff Auto Reviewed date:04/16/2024 01:17:51 PM Interpretation: Performing Lab: Notes/Report: [address] [address]Drvoov Auto55.647.2-70.8 %Lymph Auto33.227.2-40.8 %Mcdonough Auto6.6 4.7-13.9 %Eos Auto3.80.0-6.1 %Basophil Auto0.80.0-1.2 %Neutro Absolute4.11.8-7.7 x10*3/mcLLymph Absolute2.51.0-4.8 x10*3/mcLMono Absolute0.50.3-1.1 x10*3/mcLEos Absolute0.30.0-0.4 x10*3/mcLBaso Absolute0.10.0-0.2 x10*3/mcLBasic Metabolic Profile Reviewed date:04/16/2024 01:17:51 PM Interpretation: Performing Lab: Notes/Report: [address] [address]Twxzgx Szh240258-356 mmol/LPotassium Lvl3.63.4-4.8 mmol/L Mhyalvxz2352-877 mmol/TER60005-17 mmol/LAnion Tdg28-48Iapcpne Mxk9975-95 mg/dL YFR122-29 mg/dLCreatinine Lvl1.510.61-1.24 mg/dLBUN Crea Ratio15.210.0-20.0 Calcium Lvl8.58.5-10.3 mg/dLMagnesium Reviewed date:04/16/2024 01:17:51 PM Interpretation: Performing Lab: Notes/Report: [address] [address]Bcnvuoknj Lvl2.01.7-2.4 mg/dLFerritin Reviewed date:04/16/2024 01:17:51 PM Interpretation: Performing Lab: Notes/Report: [address] [address]Iucnjzvr Etd160.523.9-336.2 ng/mLTIBC Reviewed date:04/16/2024 01:17:51 PM Interpretation: Performing Lab: Notes/Report: [address] [address]Phrm Sat11.6>=16.0 %BUYL457706-607 mcg/aQTyjnedsizoq962599-080 mg/rNDdor8977-401 mcg/dLFolate Lvl Reviewed date:04/16/2024 01:17:51 PM Interpretation: Performing Lab: Notes/Report: [address] [address]Chndil Lvl5.9>=5.9 ng/mLA WHO Technical Consultation has determined that deficient Folate concentrations are considered to be less than 4 ng/mL.B12 Reviewed date:04/16/2024 01:17:51 PM Interpretation: Performing Lab: Notes/Report: [address] [address]Etsivdy B12 Rvr693826-245 pg/mL.eGFR Reviewed date:04/16/2024 01:17:51 PM Interpretation: Performing Lab: Notes/Report: [address] [address]Aicjanppx GFR46>=60 mL/min/1.73m? [facility] Laboratories have implemented the eGFR calculation approach [...] date:04/16/2024 01:17:51 PM Interpretation: Performing Lab: Notes/Report: [address], [place] [address]RQG9.54.5-11.0 x10*3/mcLRBC2.414.30-5.80 x10*6/mcLHgb7.713.5- 17.5 g/dLHct23.341.0-53.0 %MCV96.580.0-100.0 fLMCH32.027.0-35.0 arRWSK65.231.0- 37.0 %Dvagltrj212816-177 x10*3/fdECEH66.411.6-14.8 %Mean Platelet Volume6.96.7- 10.6 fLHgb Reviewed date:04/18/2024 07:51:19 AM Interpretation: Performing Lab: Notes/Report: [address], [place] [address]Xrd9.013.5-17.5 g/dLHct26.141.0-53.0 %ABO/Rh Reviewed date:04/16/2024 01:17:51 PM Interpretation: Performing Lab: Notes/Report: [facility] (UNKNOWN) [address] [place] [address], [place] [address]YNK/RhABO/Rh: O POSABSC Auto Reviewed date:04/16/2024 01:17:51 PM Interpretation: Performing Lab: Notes/Report: [facility] (UNKNOWN) [address] [place] [address], [place] [address]CPRA AutoAntibody Screen: Negative ABSCRetic Count Reviewed date:04/16/2024 01:17:51 PM Interpretation: Performing Lab: Notes/Report: [address], [place] [address]Zua94.041.0-53.0 %Reticulocyte1.60.8-2.5 %Ret Abs0.0370 Corrected Retic Count0.820.80-2.50 %CBC w/ Diff Reviewed date:04/18/2024 07:51:19 AM Interpretation: Performing Lab: Notes/Report: [address], [place] [address]CNY5.64.5-11.0 x10*3/mcLRBC2.844.30-5.80 x10*6/mcLHgb9.013.5- 17.5 g/dLHct26.441.0-53.0 %MCV93.080.0-100.0 fLMCH31.827.0-35.0 mbBWNN27.231.0- 37.0 %Ozwzqljr130253-838 x10*3/ajQGEK76.711.6-14.8 %Mean Platelet Volume6.56.7- 10.6 fLDiff Auto Reviewed date:04/18/2024 07:51:19 AM Interpretation: Performing Lab: Notes/Report: [address] [address]Zaxkdy Auto54.947.2-70.8 %Lymph Auto28.727.2-40.8 %Mcdonough Auto9.7 4.7-13.9 %Eos Auto5.40.0-6.1 %Basophil Auto1.30.0-1.2 %Neutro Absolute3.11.8-7.7 x10*3/mcLLymph Absolute1.61.0-4.8 x10*3/mcLMono Absolute0.50.3-1.1 x10*3/mcLEos Absolute0.30.0-0.4 x10*3/mcLBaso Absolute0.10.0-0.2 x10*3/mcLSodium Reviewed date:04/18/2024 07:51:19 AM Interpretation: Performing Lab: Notes/Report: [address] [address]Mqnspl Qlj237961-351 mmol/LMagnesium Reviewed date:04/18/2024 07:51:19 AM Interpretation: Performing Lab: Notes/Report: [address] [address]Xsqjujlvv Lvl2.01.7-2.4 mg/dLBasic Metabolic Profile Reviewed date:04/18/2024 07:51:19 AM Interpretation: Performing Lab: Notes/Report: [address] [address]Avcxqb Lty332266-527 mmol/LPotassium Lvl3.73.4-4.8 mmol/L Zfvngqhk76944-239 mmol/TSG02523-69 mmol/LAnion Uvx36-99Ponsnwm Skb6094-15 mg/dL TCB675-79 mg/dLCreatinine Lvl1.370.61-1.24 mg/dLBUN Crea Ratio14.610.0-20.0 Calcium Lvl8.48.5-10.3 mg/dL.eGFR Reviewed date:04/18/2024 07:51:19 AM Interpretation: Performing Lab: Notes/Report: [address] [address]Xqousplaz GFR52>=60 mL/min/1.73m? [facility] Laboratories have implemented the eGFR calculation approach [...] 07:51:19 AM Interpretation: Performing Lab: Notes/Report: [address] [address]Jev6.113.5-17.5 g/dLHct27.241.0-53.0 %CBC w/ Diff Reviewed date:04/18/2024 11:33:44 AM Interpretation: Performing Lab: Notes/Report: [address] [address]CLO2.54.5-11.0 x10*3/mcLRBC2.904.30-5.80 x10*6/mcLHgb8.913.5- 17.5 g/dLHct26.841.0-53.0 %MCV92.680.0-100.0 fLMCH30.627.0-35.0 hcUVLH62.131.0- 37.0 %Xiqrwheu676969-904 x10*3/quTBWL21.111.6-14.8 %Mean Platelet Volume6.96.7- 10.6 fLDiff Auto Reviewed date:04/18/2024 11:33:44 AM Interpretation: Performing Lab: Notes/Report: [address] [address]Sepzbk Auto53.747.2-70.8 %Lymph Auto32.027.2-40.8 %Mcdonough Auto9.7 4.7-13.9 %Eos Auto4.00.0-6.1 %Basophil Auto0.60.0-1.2 %Neutro Absolute4.51.8-7.7 x10*3/mcLLymph Absolute2.71.0-4.8 x10*3/mcLMono Absolute0.80.3-1.1 x10*3/mcLEos Absolute0.30.0-0.4 x10*3/mcLBaso Absolute0.10.0-0.2 x10*3/mcLVanco Trough Reviewed date:04/18/2024 07:51:19 AM Interpretation: Performing Lab: Notes/Report: [address] [address]Ofwju Scowpn93.810.0-15.0 mcg/mLCRP Reviewed date:04/18/2024 11:33:44 AM Interpretation: Performing Lab: Notes/Report: [address] [address]ZGD03.600.00-0.75 mg/dL CRP measurement is useful for assessment of non-specific INFLAMMATORY RESPONSE to infection or injury AND is a sensitive MARKER of ACUTE INFLAMMATION including CARDIAC RISK ASSESSMENT. CARDIAC patients with elevated CRP are POTENTIALLY at a HIGHER RISK OF FUTURE CARDIAC EVENTS. ESR Reviewed date:04/18/2024 11:33:44 AM Interpretation: Performing Lab: Notes/Report: [address] [place] [address]Yeh Xubw960-49 mm/hrC KG Reviewed date:04/25/2024 11:56:06 AM Interpretation: Performing Lab: Notes/Report: [address] [address]Dbgu Patient Name: Tavo Wallis : 1940 [facility] C ANASee Below For Report Final No anaerobic growth after 72 hrs. XR Chest 1 View Reviewed date:04/18/2024 11:33:44 AM Interpretation: Performing Lab: Notes/Report: Patient Name: Tavo Wallis CLINICAL HISTORY: Worsening dyspnea.Magnesium Reviewed date:04/18/2024 11:33:44 AM Interpretation: Performing Lab: Notes/Report: [address] [address]Uhzywauto Lvl1.81.7-2.4 mg/Lee Sterile BS Reviewed date:04/25/2024 11:56:06 AM Interpretation: Performing Lab: Notes/Report: [facility] (DEFAULT) [address] [place] [address] [address]Wxkg Patient Name: Tavo Wallis : 1940 [facility] C Sterile BSSee Below For Report Final [...] ORGANISM ID: 1 ANTIBIOTIC INTERPRETATION BELLA STATUS CORA w/ Diff Reviewed date:04/20/2024 08:42:56 AM Interpretation: Performing Lab: Notes/Report: [address] [address]TVJ2.94.5-11.0 x10*3/mcLRBC2.964.30-5.80 x10*6/mcLHgb9.313.5- 17.5 g/dLHct27.441.0-53.0 %MCV92.480.0-100.0 fLMCH31.427.0-35.0 ipPRZG47.031.0- 37.0 %Uxnthbnv666387-010 x10*3/rjANIZ88.111.6-14.8 %Mean Platelet Volume7.26.7- 10.6 fLBasic Metabolic Profile Reviewed date:04/18/2024 11:33:44 AM Interpretation: Performing Lab: Notes/Report: [address] [address]Yceivo Pyj327862-473 mmol/LPotassium Lvl3.93.4-4.8 mmol/L Eueajvec7594-192 mmol/OOH89086-13 mmol/LAnion Gsp00-56Scmgbgm Pam1915-35 mg/dL ZIC690-37 mg/dLCreatinine Lvl1.450.61-1.24 mg/dLBUN Crea Ratio13.110.0-20.0 Calcium Lvl8.38.5-10.3 mg/dLMagnesium Reviewed date:04/20/2024 08:42:56 AM Interpretation: Performing Lab: Notes/Report: [address] [address]Ujocefdjn Lvl2.11.7-2.4 mg/dL.eGFR Reviewed date:04/18/2024 11:33:44 AM Interpretation: Performing Lab: Notes/Report: [address] [address]Qcvvtramr GFR48>=60 mL/min/1.73m? [facility] Laboratories have implemented the eGFR calculation approach [...] of SCr/? or 1 Age = years Respiratory Pathogens Panel Reviewed date:04/20/2024 08:42:56 AM Interpretation: Performing Lab: Notes/Report: [place] [address] [place], [place] [address]Hpismuybl ANot DetectedNot DetectedInfluenza A/H1Not Detected Not DetectedInfluenza [...] Bordatella holmesii, Bordatella pertussis. Results from the [facility] Respiratory Pathogens Panel should be interpreted with [...] date:04/20/2024 08:42:56 AM Interpretation: Performing Lab: Notes/Report: [address] [address]Lafdyk Bci605215-397 mmol/LPotassium Lvl3.83.4-4.8 mmol/L Sxqurdez4076-614 mmol/JJZ46103-25 mmol/LAnion Egu41-18Eckpvvp Jxf7116-55 mg/dL NZO769-01 mg/dLCreatinine Lvl1.370.61-1.24 mg/dLBUN Crea Ratio14.610.0-20.0 Calcium Lvl8.58.5-10.3 mg/dL.eGFR Reviewed date:04/20/2024 08:42:56 AM Interpretation: Performing Lab: Notes/Report: [address] [address]Lhknlolmr GFR52>=60 mL/min/1.73m? [facility] Laboratories have implemented the eGFR calculation approach [...] date:04/20/2024 08:42:56 AM Interpretation: Performing Lab: Notes/Report: [address] [address]UKE0.04.5-11.0 x10*3/mcLRBC2.934.30-5.80 x10*6/mcLHgb9.113.5- 17.5 g/dLHct27.241.0-53.0 %MCV92.980.0-100.0 fLMCH31.127.0-35.0 dwWDUM35.531.0- 37.0 %Yqkyllio552702-227 x10*3/jsODAS00.611.6-14.8 %Mean Platelet Volume7.06.7- 10.6 fLDiff Auto Reviewed date:04/20/2024 08:42:56 AM Interpretation: Performing Lab: Notes/Report: [address] [address]Nzntpt Auto49.447.2-70.8 %Lymph Auto32.327.2-40.8 %Mcdonough Auto9.0 4.7-13.9 %Eos Auto8.70.0-6.1 %Basophil Auto0.60.0-1.2 %Neutro Absolute3.01.8-7.7 x10*3/mcLLymph Absolute1.91.0-4.8 x10*3/mcLMono Absolute0.50.3-1.1 x10*3/mcLEos Absolute0.50.0-0.4 x10*3/mcLBaso Absolute0.00.0-0.2 x10*3/mcLMagnesium Reviewed date:04/20/2024 08:42:56 AM Interpretation: Performing Lab: Notes/Report: [address] [address]Wmytcltpn Lvl2.11.7-2.4 mg/dLDiff Auto Reviewed date:04/20/2024 08:42:56 AM Interpretation: Performing Lab: Notes/Report: [address] [address]Owyglt Auto50.147.2-70.8 %Lymph Auto32.327.2-40.8 %Mcdonough Auto 11.24.7-13.9 %Eos Auto5.90.0-6.1 %Basophil Auto0.50.0-1.2 %Neutro Absolute3.5 1.8-7.7 x10*3/mcLLymph Absolute2.21.0-4.8 x10*3/mcLMono Absolute0.80.3-1.1 x10*3/mcLEos Absolute0.40.0-0.4 x10*3/mcLBaso Absolute0.00.0-0.2 x10*3/mcLBasic Metabolic Profile Reviewed date:04/20/2024 08:42:56 AM Interpretation: Performing Lab: Notes/Report: [address] [address]Xmleac Kdh863234-244 mmol/LPotassium Lvl3.73.4-4.8 mmol/L Wprnmpnz6681-380 mmol/ZUL30460-69 mmol/LAnion Eis31-55Tvrmjyd Anc7578-75 mg/dL EWJ921-67 mg/dLCreatinine Lvl1.250.61-1.24 mg/dLBUN Crea Ratio15.210.0-20.0 Calcium Lvl8.68.5-10.3 mg/dL.eGFR Reviewed date:04/20/2024 08:42:56 AM Interpretation: Performing Lab: Notes/Report: [address] [address]Poltlwucy GFR57>=60 mL/min/1.73m? [facility] Laboratories have implemented the eGFR calculation approach [...] Age = years Reason For Referral Reason NO AUTH REQ......... .............................NOT SCHEDULED.................................MCR/ANTHEM MRI LUMBAR TO BE DONE AT [facility] Diagnosis 1 Aftercare following surgery of the musculoskeletal system (Z47.89) Referral Organization [facility] Referring Provider First Name Randi Referring Provider Last Name [facility] Referring Provider Speciality Orthopedic Surgery Referred Organization [facility] Central Scheduling Referred Address [address] [place] [place], [place],[address], Procedure 1 MRI Lumbar Spine w/o Dye (70659) General Notes Ania Gilmore 2024 10:07:48 AM >, Shobha Stanton 03/23/2024 10:13:34 AM > MEDICARE PARTS A & B ACTIVE AND EFFECTIVE 07/05/06 PER [facility] WITH ANTHEM SECONDARY. NO AUTHORIZATION REQUIRED. FAXED TO FACILITY., Yoli Cruz 03/26/2024 11:58:10 AM > order faxed Referral Priority Routine Reason NO AUTH REQ..............................04/13/24................................MCR/ANTHE M LUMBAR I & [place] [address] [place] [address] [place] [address] no dictation available Diagnos is 1 Wound dehiscence (T81.30XA) Referra l [facility] Referri ng Provide r First Name Randi Davidsonri geovanna Provide r Last Name [place] Referjovanni austin Provide r Special ity Orthopedic Surgery Referre d [facility] Inpatient Referre d Address [address] [place], [place],[address], Procedu re 1 Incision and drainage of hematoma seroma or fluid collection (68600) Procedu re 2 Incision and drainage complex po wound i nfection (42893) Procedu re 3 Secondary closure surgical wound or dehi scence, ext or comp (01757) General Notes Ania Gilmore 04/12/2024 02:02:58 PM >, Ania Gilmore 04/12/2024 02:41:05 PM >PATIENT WAS SEEN IN THE OFFICE 03/23, MRI ORDERED AND BEING SEEN IN THE OFFICE TOMORROW, Shobha Stanton 04/12/2024 02:45:29 PM > MEDICARE PARTS A & B ACTIVE AND EFFECTIVE 07/05/06 PER [facility] WITH ANTHEM SECONDARY. NO AUTHORIZATION REQUIRED. FAXED TO [facility]., Ania Gilmore 04/16/2024 09:09:49 AM >SURGERY WAS CANCELLED. PATIENT ADMITTED FOR OTHER ISSUES AND THEN TRANSFERRED TO [facility] AND WILL BE DONE TOMORROW MORNING, Shobha Stanton 04/16/2024 09:14:49 AM > NOTED, THANK YOU. Referra l Radhat y Stat Medications Medication SIG (Take, Route, Frequency, Duration) Notes Start Date End Date Status Oxycodone Activepotassium chlorideActivelevothyroxineActivemagnesium oxideActivebumetanide ActiveeszopicloneActiveatorvastatinActiveallopurinolActiveEliquisActivetraZODone ActiveFlexeril 10 mg1 tab(s) orally 3 times a day5Activepramipexole ActiveFlexeril 10 mg1 tab(s) orally 3 times a day prn muscle mmjowq7704/22/2023 Active Social History Tobacco Use: Social History [...] Problem Status W/U Status Risk Notes Problem Neurogenic claudication (3176705 02) Lumbar stenosis with neurogenic claudication (M48.062) ActiveconfirmedProblemOther intervertebral disc degeneration, lumbar region with discogenic back pain and lower extremitypain (M51.362)ActiveconfirmedProblem Bilateral sacral insufficiency fracture (disorder) (98738424251346588)Sacral insufficiency fracture with routine healing, subsequent encounter (M84.48XD) ActiveconfirmedProblemAcquired spondylolisthesis (585686271)Anterolisthesis of lumbar spine (M43.16)ActiveconfirmedProblemEncounter for other orthopedic aftercare (Z47.89)ActiveconfirmedProblemLeft foot drop (finding) (917072738580849)Acquired left foot drop (M21.372)ActiveconfirmedProblemSpinal stenosis of lumbar region (17620819)Spinal stenosis, lumbar region without neurogenic claudication (M48.061)ActiveconfirmedProblemArachnoiditis (5642302) Arachnoiditis (G03.9)ActiveconfirmedProblemPostoperative seroma (206508822) Postprocedural seroma of skin and subcutaneous tissue following other procedure (L76.34)ActiveconfirmedProblemDehiscence of surgical wound (71167959)Disruption of external operation (surgical) wound, 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, initial encounter (T81.31XA)ActiveconfirmedProblemHistory of arthrodesis (849628014) Arthrodesis status (Z98.1)Activeconfirmed Encounters Encounter Location Date Provider Diagnosis [facility] Outpatient [address] [place], [place] [id number] 02/21/2024 Selvon [place] Spinal stenosis, lumbar region without neurogenic claudication M48.061 ; Other intervertebral disc degeneration, lumbar region with discogenic back pain and lower extremity pain M51.362 ; Anterolisthesis of lumbar spine M43.16 and Acquired left foot drop M21.[address] [place] [address] [place] [address] 03/09/2024 [facility] Encounter for other orthopedic aftercare Z47.89 and Arthrodesis status Z98.1 [facility] Office [address] [place] [address] 03/23/2024 [facility] Disruption of external operation (surgical) wound, 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, initial encounter T81.31XA ; Postprocedural seroma of skin and subcutaneous tissue following other procedure L76.34 ; Encounter for other orthopedic aftercare Z47.89 and Arthrodesis status Z98.1 [facility] Office [address] [place] [address] 04/13/2024 Gustabo May Wound dehiscence T81.30XA [address] [id number] 04/17/2024 Randi Burris Disruption of external operation (surgical) wound, 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, initial encounter T81.31XA [facility] Office [address] [place] [address] [place] [address] 05/11/2024 [facility] Encounter for other orthopedic aftercare Z47.89 ; Disruption of external operation (surgical) wound, 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, initial encounter T81.31XA and Arthrodesis status Z98.1 [facility] [address] [place] [address] 03/02/2024 Randi Burris [facility] [place] [address]/29/2025 Randi Burris Assessments Encounter Date Diagnosis (ICD Code) Assessment Notes Treatment Notes Treatment Clinical Notes Section Notes 02/21/2024 Spinal stenosis, lum bar region without neurogenic claudication (ICD- 10 - M48.061) 02/21/2024Other intervertebral disc degeneration, lumbar region with discogenic back pain and lower extremitypain (ICD-10 - M51.362)03/09/2024rthrodesis status (ICD-10 - Z98.1)1. 2 weeks s/p L2-5 revision decompression/txzpga1703/09/2024 Encounter for other orthopedic aftercare (ICD-10 - Z47.89)1. 2 weeks s/p L2-5 revision decompression/htzskp5103/23/2024Disruption of external operation (surgical) wound, 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, initial encounter (ICD-10 - T81.31XA)1. 4 weeks s/p L2-5 revision decompression and vjczdz2603/23/2024 Postprocedural seroma of skin and subcutaneous tissue following other procedure (ICD-10 - L76.34)1. 4 weeks s/p L2-5 revision decompression and twfssz1504/13/2024 Wound dehiscence (ICD-10 - T81.30XA)1. 6-week status post lumbar decompression and noninstrumented fusion with postoperative fluid collection, wound drainage and wound frartgyfwv29/11/2025Disruption of external operation (surgical) wound, not elsewhere [...] 4 weeks s/p L2-5 revision decompression and fosxmb124Anterolisthesis of lumbar spine (ICD-10 - M43.16)4Acquired left foot drop (ICD-10 - M21.372) 03/23/2024rthrodesis status (ICD-10 - Z98.1)1. 4 weeks s/p L2-5 revision decompression and jzswhi3003/09/2024Other Plan established by Dr. Man. Patient evaluated by myself and Dr. Man today. There is no dehiscence noted to his incision on exam today. [...] gave him an order for this for the [facility]. We will see him back in 2 weeks for another incision check. Patient's daughter will call for a sooner appointment with any new or worsening symptoms [...] regards, 1. 2 weeks s/p L2-5 revision decompression/qninaf1203/23/2024Other Plan established by Dr. Man. Patient evaluated [...] 4 weeks s/p L2-5 revision decompression and hkfdwh5304/13/2024Other Plan established by Dr. Man. At this [...] postoperative fluid collection, wound drainage and wound xhijrwubxt77/07/2025 Other Overall patient is starting to improve. Infectious disease is going to extend his meropenem IV for 1 more week and then reassess as there is a very small area of dehiscence still with some drainage. Patient will continue with his LSO brace and physical therapy at the [facility]. I did refill his Flexeril for [...] Date Lumbar spine, 4v flex ext - 80476 2023 Lumbar spine 2v ap and lat - 77734 05/11 Surgery Scheduling 01/25/2024 Surgery Scheduling 04/12/2024 DME - Lumbar Support, Surgical OTS 02/16 GRD-Compression stockings:thigh-high OTS 03/09/2024 BONE STIMULATOR 02/17/2024 MRI : Lumbosacral Spine W/O Contrast - 7 214703/23/2024 Future Test Test Name Order Date Chest 2 views - [id number] 01/25/2024 CBC 01/25/2024 Type and Screen Blood Type 01/25/2024 PT/PTT 01/25/2024 BMP 01/25/2024 MRSA (Bilateral Nares) PCR 01/25/2024 EKG 01/25/2024 Insurance Providers Payer Name Payer Address Payer Phone Subscriber Number Group Number Insured Name Patient Relationship to Insured Coverage Start Date Coverage End [place] [address] [place] [address] [id number] DAMION WALLIS JRelf - patient [facility] the [facility]O [address] [place] [id number] JR, WILLIAMSelf - patient is the insured Medical (General) History Medical History History ICD Code High Blood Pressure Abnormal Heart RhythmThyroid diseaseStomach ulcersCancer spineKidney stones OsteoarthritisRheumatoid arthritisBleeding DisordersSurgical History Surgery Date(Month/Year) Rotator cuff surgery
== END 2025-02-20 10:51 | disposition home or self-care (01) ==
LOC: WC 10:50
PROVIDERS: PCP Family Medicine; Visit Provider Podiatrist Foot & Ankle Surgery
DX: L89.612 Pressure ulcer of right heel, stage 2 (principal)
CPT/HCPCS: G0463